=== PATIENT | female | born 1965 | race Caucasian/White ===

== ENCOUNTER 2022-09-14 08:36 | Outpatient (RCR) | payer MEDICARE, SELFPAY | END 2022-11-21 16:40 | disposition home or self-care (01) | LOC: PT 08:36 | PROVIDERS: PCP Family Medicine; Visit Provider Family Medicine | DX: C67.9 Malignant neoplasm of bladder, unspecified (principal); Z78.9 Other specified health status; G91.9 Hydrocephalus, unspecified | CPT/HCPCS: 97110; 97112; 97530 ==

== ENCOUNTER 2023-01-24 15:01 | Outpatient (RCR) | payer MEDICARE, SELFPAY | END 2023-04-15 09:00 | disposition home or self-care (01) | LOC: PT 15:01 | PROVIDERS: PCP Family Medicine; Visit Provider Internal Medicine | DX: M25.511 Pain in right shoulder (principal); M25.512 Pain in left shoulder; M54.6 Pain in thoracic spine; R53.1 Weakness; R26.89 Other abnormalities of gait and mobility | CPT/HCPCS: 97110; 97140; 97162; 97164 ==

== ENCOUNTER 2023-04-11 18:04 | Emergency (ER) | payer MEDICARE, SELFPAY ==
[2023-04-11 18:17] VITALS: BP 176/80; PULSE 82; RESP 18; TEMP 36.8; O2SAT 100; BMI 20.7
--- NOTE | 2023-04-11 18:59 | XR_ITS ---
The [address] [address] Patient Name: CHIKIS TOBAR MRN: [id number] date: 1965 Sex: F Assigned Patient Location: ER Current Patient Location: ER Accession/Order Number: [id number] Exam Date: 04/11/2023 19:15 Report Date: 04/11/2023 20:12 At the request of: FLOYD ALLEN Procedure: XR knee LT 4V EXAM: XR knee LT 4V HISTORY: fall COMPARISON: None. TECHNIQUE: 4 views FINDINGS: IMPRESSION: Displaced intra-articular fracture of the patella. Large knee effusion and presumed lipohemarthrosis. The remainder of the osseous structures are unremarkable. Joint spaces are for patient's age. Atherosclerosis of the vascular structures. Orthopedic surgical intervention is necessary. Electronically authenticated by: ANTHONY GARVEY Date: 04/11/2023 20:12
--- NOTE | 2023-04-11 19:42 | ED.LOWEXI1 ---
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 She receives all of her neurology/neurosurgery care through the [facility]. She states that she has ongoing paresthesia from the mid thorax distally and tonight after dinner, she stood up and felt twitching and weakness in the left leg causing her to fall forward onto her left knee. She states she now has pain in the anterior left knee and difficulty ambulating. She denies any other associated injuries. No medications taken prior to arrival. Related Data Previous Rx's Medication Instructions Recorded hydrocodone 5 mg-acetaminophen 325 1 tab PO Q6H PRN pain 3 days #12 04/11/23 mg tablet tabs ondansetron 4 mg disintegrating 4 mg PO Q6H PRN nausea and 04/11/23 tablet vomiting #12 tabs Allergies Allergy/AdvReac Type Severity Reaction Status Date / Time cyclobenzaprine Allergy Intermediate Hives Verified 04/11/23 18:22 [From Flexeril] meperidine [From Demerol] Allergy Intermediate Nausea Verified 04/11/23 18:22 midazolam [From Versed] Allergy Intermediate Verified 04/11/23 18:22 orphenadrine [From Norflex] Allergy Intermediate Hives Verified 04/11/23 18:22 Review of Systems ROS Constitutional Denies: fever or chills Ears, nose, mouth, and throat Denies: throat pain or neck pain Cardiovascular Denies: chest pain Respiratory Denies: shortness of breath Gastrointestinal Denies: nausea or vomiting Musculoskeletal Denies: back pain or neck pain Integumentary/Breast Denies: rash Neurological Denies: headache Hematologic/Lymphatic Denies: easy bruising or easy bleeding Exam Narrative Exam Narrative: Gen.: Awake, alert, in no distress Head: Normocephalic, atraumatic ENT: Moist mucous membranes Respiratory: No respiratory distress Extremities: Pain with flexion and extension at the left knee, diffusely mildly edematous with faint ecchymosis on the anterior patella. No bony tenderness of the left ankle or foot. Psych: Normal mood and affect Neuro: No focal neuro deficit Skin: Warm, dry, intact Constitutional Vital Signs, click to edit/add: Last Vital Signs Temp 98.3 F 04/11/23 18:17 Pulse 82 04/11/23 18:17 Resp 18 04/11/23 18:17 BP 176/80 H 04/11/23 18:17 Pulse Ox 100 04/11/23 18:17 Course Vital Signs Vital signs: Vital Signs Temperature 98.3 F 04/11/23 18:17 Pulse Rate 82 04/11/23 18:17 Respiratory Rate 18 04/11/23 18:17 Blood Pressure 176/80 H 04/11/23 18:17 Pulse Oximetry 100 04/11/23 18:17 Temperature 98.3 F 04/11/23 18:17 Pulse Rate 82 04/11/23 18:17 Respiratory Rate 18 04/11/23 18:17 Blood Pressure 176/80 H 04/11/23 18:17 Pulse Oximetry 100 04/11/23 18:17 MDM - Extremity Injury (Lower) MDM Narrative Medical decision making narrative: Patient found to have a left patella fracture with mild distraction of fragments. She declined any narcotic pain medication in the ER, she states it makes her nauseous. She was treated with Motrin and Tylenol. I discussed the case with Dr. Andrew Mares for orthopedics at [facility] at the patient's request as she receives all of her other care through the [facility]. He recommended outpatient follow-up with a long knee immobilizer and weightbearing as tolerated. Patient is agreeable to this, she prefers to be discharged and follow-up as an outpatient. It was recommended that she follow-up with the main campus due to her complex medical history, she will contact her neurology specialist/infectious disease specialist for recommendations for orthopedics. She was given a prescription of [place] with Zofran for home as needed. She was instructed to elevate the knee with and apply ice, Madan wrap and knee immobilizer given in the ER and the patient remains neurovascularly intact. Crutches given for comfort. Medical Records Attestation: I reviewed the patient's medical records. Discharge Plan Discharge Chief Complaint: Extremity Injury, Lower Clinical Impression: Closed fracture of left patella Patient Disposition: Home, Self-Care Time of Disposition Decision: 20:28 Condition: Good Prescriptions / Home Meds: New hydrocodone-acetaminophen 5-325 mg tablet 1 tab PO Q6H PRN (Reason: pain) 3 Days Qty: 12 0RF Rx Instructions: DX: M25.562 ondansetron 4 mg tablet,disintegrating 4 mg PO Q6H PRN (Reason: nausea and vomiting) Qty: 12 0RF Instructions: Patellar Fracture (ED), Knee Immobilizer (ED) Additional Instructions: Please call [phone] for the [facility] appointment line, please request orthopedics at the main campus or the orthopedic doctor recommended by your specialists Stand Alone Forms: Portal Instructions Referrals: Oliva Simons MD [Primary Care Provider] - 1 week Discharge Date/Time: 04/11/23 21:13
[2023-04-11] MEDS: ACETAMINOPHEN 325 MG TABLET 650 MG PO (20:13)
[2023-04-11] MEDS: IBUPROFEN 600 MG TABLET PO (20:13)
== END 2023-04-11 21:13 | disposition home or self-care (01) ==
PROVIDERS: Emergency Provider Emergency Medicine; PCP Family Medicine
DX: S82.002A Unspecified fracture of left patella, initial encounter for closed fracture (principal); Z85.51 Personal history of malignant neoplasm of bladder; W18.39XA Other fall on same level, initial encounter; Z86.61 Personal history of infections of the central nervous system
CPT/HCPCS: 73564; 99283

== ENCOUNTER 2023-04-16 09:48 | Outpatient (RCR) | payer MEDICARE, SELFPAY | END 2023-10-06 14:00 | disposition home or self-care (01) | LOC: PT 09:48 | PROVIDERS: PCP Family Medicine; Visit Provider Internal Medicine | DX: M25.511 Pain in right shoulder (principal); M25.512 Pain in left shoulder; R26.89 Other abnormalities of gait and mobility; M25.559 Pain in unspecified hip; R53.1 Weakness; M75.02 Adhesive capsulitis of left shoulder; M75.01 Adhesive capsulitis of right shoulder | CPT/HCPCS: 97110; 97112; 97140; 97164; 97530 ==

== ENCOUNTER 2023-06-24 21:16 | Emergency (ER) | payer MEDICARE, SELFPAY ==
[2023-06-24] VITALS (17 sets, daily range): BP systolic 181–201; BP diastolic 68–85; PULSE 101–120; RESP 20–24; TEMP 38.1; O2SAT 92–99; BMI 22.1
--- OUTSIDE RECORDS SUMMARY | 2023-06-24 21:29 | XMS_ITS | CCD ---
Author Name Unknown Address [address] [place] [address] Organization [facility] Care Team Providers Care Advertising Campaign Manager Name Role Phone Omestella, Jose Unavailable Unavailable Unavailable Unavailable Unavailable Unavailable Unavailable Unavailable Kalli White Primary Care Provider KALLI WHITE Primary Care Unavailable KALLI WHITE Referring Unavailable NANCY VILLASENOR Referring Unavailable KALLI WHITE Primary Care Unavailable KALLI WHITE Primary Care Unavailable KALLI WHITE Referring Unavailable Omestella, Jose Unavailable Unavailable Unavailable Unavailable Zarina Mejia Primary Care Provider [phone] Kalli White MD Primary Care Provider [phone] Kalli White MD Primary Care Provider Kalli White MD Primary Care Provider [phone] DO Juliette Berumen Primary Care Provider [phone] MD Raul Gong Emergency Provider MD Jayashree Watts Admit Provider [phone] MD Jayashree Watts Attending Provider [phone] Kalli White MD Primary Care Provider SUNSHINE, PETERSON Referring Unavailable KALLI WHITE Primary Care Unavailable SATYAI, PETERSON Referring Unavailable KALLI WHITE Primary Care Unavailable KALLI WHITE Primary Care Unavailable ALMASSI, PETERSON Referring Unavailable Juliette Berumen Unavailable KALLI WHITE Primary Care Unavailable CONCEPCIÓN LACY Admitting Unavailable CONCEPCIÓN LACY Attending Unavailable LEÓN SMITH Consulting Unavailable ABBLENA, SINAN Ventura Consulting Unavailable CHARLY, RYAN Consulting Unavailable DAVID GARNER Consulting Unavailable BLAZE ALEMAN Consulting Unavailable JOEL, SAWYER Ventura Consulting Sonu LYNNE, SAWYER GOODMAN Consulting Unavailab mi MONTESINOS ., DR CLARE Lou Consulting Unavailable NADERER, DR ALYCE Ventura Admitting Unavailable NADERER, DR ALYCE Ventura Attending Unavailable JAMAICA, DR NAVARRO Primary Care Unavailable NADERER, DR ALYCE Ventura Consulting Unavailable SALINASCHRON ., JONNIE BARRIENTOS Consulting Unavailmika HIGGINS ., DR JARAMILLO Consulting Unavailable BERNOTANA ROSA Consulting Unavailable KLIPPER, ANTHONY Consulting Unavailable SISTER, BETHANY Consulting Unavailable JAMAICA, DR NAVARRO Admitting Unavailable BALL, DR NAVARRO Attending Unavailable BALL, DR NAVARRO Primary Care Unavailable BALL, DR NAVARRO Admitting Unavailable BALL, DR NAVARRO Attending Unavailable BALL, DR NAVARRO Primary Care Unavailable MISC, DR JORDAN Admitting Unavailable MISC, DR JORDAN Attending Unavailable BALL, DR NAVARRO Primary Care Unavailable BALL, DR NAVARRO Primary Care Unavailable MARIANELA AVILEZ Admitting Unavailable RAGHAV, MARIANELA Attending Unavailable RAGHAV, MARIANELA Consulting Unavailable TIFFANIEREEMANUEL ANDREW Consulting Unavailable AKOSUA AHN Consulting Unavailable RAGHAV, MARIANELA Admitting Unavailable WHITE, DR KALLI Lou Primary Care Unavailable RAGHAV, MARIANELA Attending Unavailable MARIANELA AVILEZ Consulting Unavailable ESTEE TORRES Consulting Unavailable MELIDA, DR ALY Mackay Admitting Unavailable MELIDA, DR ALY Mackay Attending Unavailable MELIDA, DR ALY Mackay Consulting Unavailable JAMAICA, DR NAVARRO Primary Care Unavailable KATIE CAMILO Consulting Unavailable MAMADOU VERA Consulting Unavailable JAMAICA, DR NAVARRO Primary Care Unavailable DIAB ., AARTI Admitting Unavailable DIAB ., AARTI Attending Unavailable KLYMKATIE Consulting Unavailable GAURI SALGUERO Consulting Unavailable ITKINDELROY Consulting Unavailable DIAB ., AARTI Consulting Unavailable NADIRVIN, DR ALYCE Ventura Admitting Unavailable MELIDA, DR ALY Mackay Consulting Unavailable NADIRVIN, DR ALYCE Ventura Attending Unavailable JAMAICA, DR NAVARRO Primary Care Unavailable NADEREThompson, DR ALYCE Ventura Consulting Unavailable GRACE HICKMAN Consulting Unavailable WILKS, KIN Consulting Unavailable BENITA ., DR ASTORGA Admitting Unavailable HOGenesis ., DR ASTORGA Attending Unavailable HOGenesis ., DR ASTORGA Consulting Unavailable BALL, DR NAVARRO Primary Care Unavailable ZIEBER, DR BRANDON Mackay Consulting Unavailable BEATRICE ., JOVON Consulting Unavailable LACEY, DANIEL C. Consulting Unavailable FALVO, MADELEINE Consulting Unavailable Cathie, Jodie Consulting Unavailable WILKS, RADHA Consulting Unavailable [place] DO Navarro Primary Care Provider STEVEN Headley Attending Provider Kalli White Unavailable DO Juliette Berumen Attending Provider CopMarjorie morley Attending Unavailable Juliette Berumen Primary Care Unavailable Marjorie Headley Admitting Unavailable Semaskiene, Jayashree Admitting Unavailable Juliette Berumen Primary Care Unavailable Chaye, Jayashree Attending Unavailable Rock Rich Attending Unavailable Vanita Alfred Consulting Unavailable Juliette Berumen Primary Care Unavailable Cyndi Beltran Admitting Unavailable Molly Gallegos Consulting Unavailable Brandon Vasquez Consulting Unavailable Khoi Driver Consulting Unavailab Marce Day Consulting Unavailable Reed Elena Consulting Unavailable Camelia Schulte Consulting Unavailable Lisa Ramsey Consulting Unavailable Armin Smith Consulting Unavaila Cathy Gatica Consulting Unavailable Emili Almendarez Consulting UnavailPablo Dillard Consulting Unavailable Camilo White Consulting Unavailable Zarina Stoll Consulting Unavailable Anthony Iyer Consulting Unavailable Katie Abbasi Consulting Unavailable Raul Hernandez Consulting Unavailable Ankit Madera Consulting Unavailable Alvin Allison Consulting Unavailable Jason Cummings Consulting Unavailable Anthony Mendoza Consulting Unavailable Eben Fong Consulting Unavailable Aly Hubbard Consulting Unavailable Cassidy Cam Consulting Unavailable Alyssa Chu Consulting Unavailable Tang Jha Consulting Unavailable Myrna Arrieta Consulting Unavailable Monico Rubi Consulting Unavailable Silvino Jonas Consulting Unavailable Gurdeep Rajan Consulting Unavailable Jenny Conley Consulting Unavailable Sara Myers Consulting Unavailable Manda Unger Consulting Unavailable Khoi Peck Consulting Unavailable Trent Bravo Consulting Unavailable Karsten Boucher Consulting Unavailable Slava Pedro Consulting Unavailable Andrew Garcia Consulting Unavailable Monika Kim Consulting Unavailab Estee Wells Consulting Unavailable Kelly Contreras Consulting Unavailable Anesthesiologist, Ananda Consulting Unav ailable JamaicaJuliette Primary Care Unavailable JamaicaJuliette Admitting Unavailable JamaicaJuliette Attending Unavailable Deandra Roth Primary Care Unavailable Deandra Roth Primary Care Unavailable OMOREGIE, PAC JOSE STACK Attending Un available Shelbi Lopez Unavailable WHITE, KALLI E Primary Care Unavailable SCHWKARIS, MARLENE Attending Unavailable RAUL ROSEN Referring Unavailable WHITE, KALLI E Primary Care Unavailable FLOYD MENDOZA Referring Unavailable ISJAMIE AGOSTO Attending Unavailable WHITE, KALLI E Primary Care Unavailable ISJAMIE AGOSTO Attending Unavailable WHITE, KALLI E Primary Care Unavailable MYRNA SOLIMAN Referring Unavailable WHITE, KALLI E Primary Care Unavailable SEYBERT, AASHISH Referring Unavailable WHITE, KALLI E Primary Care Unavailable SCHWKARIS, MARLENE Attending Unavailable RAUL ROSEN Referring Unavailable WHITE, KALLI E Primary Care Unavailable SCHWIETERMAN, MARLENE Referring Unavailable WHITE, KALLI E Primary Care Unavailable ISJAMIE AGOSTO Referring Unavailable WHITE, KALLI E Primary Care Unavailable ISJAMIE AGOSTO Referring Unavailable WHITE, KALLI E Primary Care Unavailable ALMASSI, PETERSON Referring Unavailable WHITE, KALLI E Primary Care Unavailable ISJAMIE AGOSTO Attending Unavailable WHITE, KALLI E Primary Care Unavailable RAMAMBAR LI A Referring Unavailable WHITE, KALLI E Primary Care Unavailable ALMASSI, PETERSON Referring Unavailable ALMASSI, PETERSON Attending Unavailable WHITE, KALLI E Primary Care Unavailable WHITE, KALLI E Primary Care Unavailable SCHWIETERMAN, MARLENE Attending Unavailable WHITE, KALLI E Primary Care Unavailable ISJAMIE AGOSTO Attending Unavailable FLOYD MENDOZA Referring Unavailable WHITE, KALLI E Primary Care Unavailable ISJAMIE AGOSTO Attending Unavailable ISJAMIE AGOSTO Referring Unavailable WHITE, KALLI E Primary Care Unavailable WHITE, KALLI E Primary Care Unavailable WHITE, KALLI E Primary Care Unavailable WHITE, KALLI E Primary Care Unavailable WHITE, KALLI E Primary Care Unavailable SCHWIETERMAN, MARLENE Referring Unavailable SCHWIETERMAN, MARLENE Attending Unavailable WHITE, KALLI E Primary Care Unavailable SEYBERT, AASHISH Referring Unavailable WHITE, KALLI E Primary Care Unavailable WHITE, KALLI E Primary Care Unavailable WHITE, KALLI E Referring Unavailable ALMASSI, PETERSON A Attending Unavailable SEKATHLEENERTAASHISH Attending Unavailable WHITE, KALLI E Primary Care Unavailable SEYBERT, AASHISH Attending Unavailable WHITE, KALLI E Primary Care Unavailable SEYBERT, AASHISH Referring Unavailable WHITE, KALLI E Primary Care Unavailable WHITE, KALLI E Primary Care Unavailable AASHISH MONGE Unavailable Unavailable Unavailable Unavailable Allergies Allergy Classification Reported Allergen(s) Allergy Type Date of Onset Reaction(s) Facility cyclobenzaprine (1 source) cyclobenzaprine; 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: [Flexeril] Drug Allergy Rash [facility] Work Phone: Opioid Agonists (1 source) Meperidine; 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: [Demerol SOLN] Drug Allergy Nausea, Dizziness [facility] Work Phone: Orphenadrine (1 source) Orphenadrine; 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: [Norflex] Drug Allergy Rash [facility] Work Phone: (20 sources) cyclobenzaprine; 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: [Flexeril] Drug Allergy 6 hives [facility] (20 sources) Meperidine; 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: [Demerol SOLN] Drug Allergy 1 GI Upset, rash [facility] (20 sources) Orphenadrine; 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: [Norflex] Drug Allergy [facility] Work Phone: (20 sources) cyclobenzaprine; 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: [CYCLOBENZAPRINE] Drug Allergy 1 [facility] (20 sources) Midazolam; 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: [MIDAZOLAM] Drug Allergy 1 Mental Status Change [facility] (7 sources) Meperidine; 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: [MEPERIDINE] Drug Allergy 1 Dizziness [facility] (1 source) Meperidine Drug Allergy 6 [facility] (1 source) Midazolam Drug Allergy [facility] (1 source) Orphenadrine Drug Allergy 6 [facility] (1 source) cyclobenzaprine Drug Allergy 3 [facility] (1 source) Midazolam Drug Allergy 3 [facility] Medications Current Medications Medication Drug Class(es) Dates Sig (Normalized) Sig (Original) amoxicillin 875 mg / clavulanate 125 mg oral tablet (6 sources) Penicillin-class Antibacterial Start: 03-02-2023 take 1 tablet by mouth every twelve hours Amoxicillin-Pot Clavulanate 875-125 MG 1 tablet Orally every 12 hrs for 10 days Feb, Active Start: 10-31-2021 End: 11-14-2021 take 1 tablet by mouth twice daily amoxicillin-clavulanic acid (AUGMENTIN) 875-125 mg per tablet Take 1 tablet by mouth twice daily for 14 days. 28 tablet 0 10/31/2021 11/14/2021 Active Comment on above: Take 1 tablet by tierra twice daily for 14 days. bacitracin 0.5 unt/mg topical ointment (7 sources) Start: 08-08-2022 Bacitracin Active 1 APPLIC TOPICAL Daily August 08, 2022 12:00am Start: 07-20-2022 End: 09-18-2022 bacitracin 500 unit/gram oin tment Apply to affected area twice daily. 28 g 0 07/20/2022 09/18/2022 Active Bacitracin 500 U NIT/GM 1 application into the lower eyelid of affected eye Ophthalmic Once a day Active Comment on above: Apply to affected ar ea twice daily. Bacitracin 500 UNIT/GM (9 sources) Bacitracin 500 U NIT/GM 1 application into the lower eyelid of affected eye Ophthalmic Once a day Active cholecalciferol 0.05 mg oral capsule (2 sources) Vitamin D Start: 08-08-2022 take 1 capsule by mouth once daily Cholecalciferol (Vitamin D3) (Vitamin D3) 50 mcg (2,000 unit) Capsule Active 50 MCG PO Daily August 08, 2022 12:00am enteric contrast (will be provided with radiology test) (4 sources) Start: 11-30-2021 End: 12-01-2021 enteric contrast (will be provided with radiology test) Indications: Pelvic and perineal pain For CT PELVIS W IVCON order Administer, As Directed One Time Only, via Oral, Rectal, both Oral and Rectal, Enteric Tube, Stoma or Indwelling Catheter, Enteric Contrast as designated per enteric contrast guidelines 1 Each 0 11/30/2021 12/01/2021 Active Start: 11-30-2021 End: 12-01-2021 enteric contrast (will be pr ovided with radiology test) For CT PELVIS W IVCON order Administer, As Directed One Time Only, via Oral, Rectal, both Oral and Rectal, Enteric Tube, Stoma or Indwelling Catheter, Enteric Contrast as designated per enteric contrast guidelines 1 Each 0 11/30/2021 12/01/2021 Active Start: 10-11-2021 End: 10-12-2021 enteric contrast (will be pr ovided with radiology test) For CT ABD/PEL W IVCON Routine order Administer, As Directed One Time Only, via Oral, Rectal, both Oral and Rectal, Enteric Tube, Stoma or Indwelling Catheter, Enteric Contrast as designated per enteric contrast guidelines 1 Each 0 10/11/2021 10/12/2021 Active Comment on above: For CT ABD/PEL W IVC ON Routine order Administer, As Directed One Time Only, via Oral, Rectal, both Oral and Rectal, Enteric Tube, Stoma or Indwelling Catheter, Enteric Contrast as designated per enteric contrast guidelines For CT PELVIS W IVCO N order Administer, As Directed One Time Only, via Oral, Rectal, both Oral and Rectal, Enteric Tube, Stoma or Indwelling Catheter, Enteric Contrast as designated per enteric contrast guidelines ferrous sulfate 325 mg oral tablet (20 sources) Start: 08-08-2022 take 1 tablet by mouth once daily Ferrous Sulfate (Iron) 325 mg (65 mg iron) Tablet Active 325 MG PO Daily August 08, 2022 12:00am Start: 06-16-2022 take 1 tablet by tierra th every other day ferrous sulfate 325 mg (65 mg iron) tablet Take 1 tablet by mouth every other day. 0 06/16/2022 Active take 1 tablet by tierra th every other day Ferrous Sulfate 325 (65 Fe) MG 1 tablet Orally every other day Active take 1 tablet by tierra th every other day Ferrous Sulfate 325 (65 Fe) MG 1 tablet Orally every other day Active Comment on above: Take 1 tablet by tierra th every other day. Glucagon 3 MG/DOSE (16 sources) Glucagon 3 MG/DO SE as directed Nasally Active Insulin Aspart U-100 (Novolog U-100 Insulin Aspart) 100 unit/mL solution (3 sources) Start: 04-30-2021 Insulin Aspart U-100 (Novolog U-100 Insulin Aspart) 100 unit/mL solution Active 0 .ROUTE .COMPLEX April 30, 2021 1:00am patient has insulin pump 3 ml insulin glargine 100 unt/ml pen injector (20 sources) Insulin Analog Start: 08-08-2022 Insulin Glargi ne (Lantus Solostar U-100 Insulin) 100 unit/mL (3 mL) insulin pen Active 18 UNIT SUBCUT Bedtime August 08, 2022 12:00am Start: 07-20-2022 End: 01-15-2023 inject 18 [IU] by subcutaneous injection once daily at bedtime insulin glargine 100 unit/mL (3 mL) Inject 18 Units subcutaneously daily at bedtime. 6 mL 0 07/20/2022 01/15/2023 Discontinued Start: 06-15-2022 End: 07-20-2022 insulin glargine (LANTUS ISAAK OSTAR, BASAGLAR KWIKPEN) 100 unit/mL (3 mL) Inject 17 Units subcutaneously every morning. 15 mL 0 06/15/2022 07/20/2022 Discontinued Start: 01-14-2022 End: 02-13-2022 inject 25 [IU] by subcutaneous injection once daily in the morning insulin glargine (LANTUS) 100 unit/mL injection Inject 25 Units subcutaneously every morning. 10 mL 0 01/14/2022 Active Start: 02-18-2019 inject 15 [IU] by ziegler bcutaneous injection every twelve hours, then inject 100 [IU] by subcutaneous injection Lantus SoloStar 100 UNIT/ML Subcutaneous Solution Pen-injector INJECT, subcutaneously, 15 UNITS every 12 hours Quantity: 3 Refills: 5 Omestella PA-C Jose Start : 18-Feb-2019 Active 3 ML Pen Start: 02-18-2019 inject 14 [IU] by ziegler bcutaneous injection every twelve hours, then inject 100 [IU] by subcutaneous injection Basaglar KwikPen 100 UNIT/ML Subcutaneous Solution Pen-injector please inject 14 units every 12 hours Quantity: 3 Refills: 5 Omestella PA-C Jose Start : 18-Feb-2019 Active 3 ML Pen Comment on above: Inject 25 Units subc utaneously every morning. Inject 17 Units subc utaneously every morning. Inject 18 Units subc utaneously daily at bedtime. iv contrast (will be provided with radiology test) (15 sources) Start: 01-09-2023 End: 01-10-2023 iv contrast (will be provided with radiology test) Indications: History of bladder cancer CT Urogram WO/W Inject, intravenously, once for 1 dose.No IV access, insert saline lock prior to the beginning of sedation, infusion, injection of imaging exam. Discontinue saline lock post exam. If Pt. has a central line or IVAD, may access for administration according to line specific nursing protocol. Once exam is complete flush line and de-access according to line specific nursing protocol in the CT contrast administration guidelines link. 1 Each 0 01/09/2023 01/10/2023 Active Start: 01-09-2023 End: 01-10-2023 iv contrast (will be provide d with radiology test) Indications: History of bladder cancer CT Chest W -Inject, intravenously, once for 1 dose.No IV access, insert saline lock prior to the beginning of sedation, infusion, injection of imaging exam. Discontinue saline lock post exam. If Pt. has a central line or IVAD, may access for administration according to line specific nursing protocol. Once exam is complete flush line and de-access according to line specific nursing protocol in the CT contrast administration guidelines link. 1 Each 0 01/09/2023 01/10/2023 Active Start: 07-19-2022 End: 07-20-2022 inject 1 dose intravenously once iv contrast (will be provided with radiology test) MRI Brain Inject, intravenously, once for 1 dose.No IV access, insert saline lock prior to beginning of sedation, infusion, injection of imaging exam.Discontinue saline lock post exam. If Pt. has a central line or IVAD, may access for administration according to line specific nursing protocol.Once exam is complete flush line and de-access according to line specific nursing protocol in the MR contrast administration guidelines link 1 Each 0 07/19/2022 07/20/2022 Active Start: 07-19-2022 End: 07-20-2022 iv contrast (will be provide d with radiology test) MRI CSP Inject, intravenously, once for 1 dose. No IV access, insert saline lock prior to the beginning of sedation, infusion, injection of imaging exam. Discontinue saline lock post exam. If Pt. has a central line or IVAD, may access for administration according to line specific nursing protocol. Once exam is complete flush line and de-access according to line specific nursing protocol in the MR contrast administration guidelines link. 1 Each 0 07/19/2022 07/20/2022 Active Start: 07-19-2022 End: 07-20-2022 iv contrast (will be provide d with radiology test) MRI LSP Inject, intravenously, once for 1 dose. No IV access, insert saline lock prior to the beginning of sedation, infusion, injection of imaging exam. Discontinue saline lock post exam. If Pt. has a central line or IVAD, may access for administration according to line specific nursing protocol. Once exam is complete flush line and de-access according to line specific nursing protocol in the MR contrast administration guidelines link. 1 Each 0 07/19/2022 07/20/2022 Active Start: 07-19-2022 End: 07-20-2022 inject 1 dose intravenously once iv contrast (will be provided with radiology test) MRI TSP Inject, intravenously, once for 1 dose. No IV access, insert saline lock prior to the beginning of sedation, infusion, injection of imaging exam. Discontinue saline lock post exam. If Pt. has a central line or IVAD, may access for administration according to line specific nursing protocol. Once exam is complete flush line and de-access according to line specific nursing protocol in the MR contrast administration guidelines link. 1 Each 0 07/19/2022 07/20/2022 Active Start: 05-02-2022 End: 05-03-2022 iv contrast (will be provide d with radiology test) Indications: History of bladder cancer CT Urogram WO/W Inject, intravenously, once for 1 dose.No IV access, insert saline lock prior to the beginning of sedation, infusion, injection of imaging exam. Discontinue saline lock post exam. If Pt. has a central line or IVAD, may access for administration according to line specific nursing protocol. Once exam is complete flush line and de-access according to line specific nursing protocol in the CT contrast administration guidelines link. 1 Each 0 05/02/2022 05/03/2022 Active Start: 05-02-2022 End: 05-03-2022 iv contrast (will be provide d with radiology test) Indications: History of bladder cancer CT Chest W -Inject, intravenously, once for 1 dose.No IV access, insert saline lock prior to the beginning of sedation, infusion, injection of imaging exam. Discontinue saline lock post exam. If Pt. has a central line or IVAD, may access for administration according to line specific nursing protocol. Once exam is complete flush line and de-access according to line specific nursing protocol in the CT contrast administration guidelines link. 1 Each 0 05/02/2022 05/03/2022 Active Start: 01-31-2022 End: 02-01-2022 iv contrast (will be provide d with radiology test) Indications: Malignant neoplasm of urinary bladder, unspecified site (HCC) CT Urogram WO/W Inject, intravenously, once for 1 dose.No IV access, insert saline lock prior to the beginning of sedation, infusion, injection of imaging exam. Discontinue saline lock post exam. If Pt. has a central line or IVAD, may access for administration according to line specific nursing protocol. Once exam is complete flush line and de-access according to line specific nursing protocol in the CT contrast administration guidelines link. 1 Each 0 01/31/2022 02/01/2022 Active Start: 11-30-2021 End: 12-01-2021 iv contrast (will be provide d with radiology test) Indications: Pelvic and perineal pain CT PELVIS W -Inject, intravenously, once for 1 dose.No IV access, insert saline lock prior to the beginning of sedation, infusion, injection of imaging exam. Discontinue saline lock post exam. If Pt. has a central line or IVAD, may access for administration according to line specific nursing protocol. Once exam is complete flush line and de-access according to line specific nursing protocol in the CT contrast administration guidelines link. 1 Each 0 11/30/2021 12/01/2021 Active Start: 11-30-2021 End: 12-01-2021 iv contrast (will be provide d with radiology test) CT PELVIS W -Inject, intravenously, once for 1 dose.No IV access, insert saline lock prior to the beginning of sedation, infusion, injection of imaging exam. Discontinue saline lock post exam. If Pt. has a central line or IVAD, may access for administration according to line specific nursing protocol. Once exam is complete flush line and de-access according to line specific nursing protocol in the CT contrast administration guidelines link. 1 Each 0 11/30/2021 12/01/2021 Active Start: 11-30-2021 End: 12-01-2021 iv contrast (will be provide d with radiology test) Indications: Malignant neoplasm of urinary bladder, unspecified site (HCC) CT Urogram WO/W Inject, intravenously, once for 1 dose.No IV access, insert saline lock prior to the beginning of sedation, infusion, injection of imaging exam. Discontinue saline lock post exam. If Pt. has a central line or IVAD, may access for administration according to line specific nursing protocol. Once exam is complete flush line and de-access according to line specific nursing protocol in the CT contrast administration guidelines link. 1 Each 0 11/30/2021 12/01/2021 Active Start: 10-11-2021 End: 10-12-2021 iv contrast (will be provide d with radiology test) CT ABD/PEL -Inject, intravenously, once for 1 dose.No IV access, insert saline lock prior to the beginning of sedation, infusion, injection of imaging exam. Discontinue saline lock post exam. If Pt. has a central line or IVAD, may access for administration according to line specific nursing protocol. Once exam is complete flush line and de-access according to line specific nursing protocol in the CT contrast administration guidelines link. 1 Each 0 10/11/2021 10/12/2021 Active Comment on above: CT ABD/PEL -Inject, intravenously, once for 1 dose.No IV access, insert saline lock prior to the beginning of sedation, infusion, injection of imaging exam. Discontinue saline lock post exam. If Pt. has a central line or IVAD, may access for administration according to line specific nursing protocol. Once exam is complete flush line and de-access according to line specific nursing protocol in the CT contrast administration guidelines link. CT PELVIS W -Inject, intravenously, once for 1 dose.No IV access, insert saline lock prior to the beginning of sedation, infusion, injection of imaging exam. Discontinue saline lock post exam. If Pt. has a central line or IVAD, may access for administration according to line specific nursing protocol. Once exam is complete flush line and de-access according to line specific nursing protocol in the CT contrast administration guidelines link. CT Urogram WO/W Inje ct, intravenously, once for 1 dose.No IV access, insert saline lock prior to the beginning of sedation, infusion, injection of imaging exam. Discontinue saline lock post exam. If Pt. has a central line or IVAD, may access for administration according to line specific nursing protocol. Once exam is complete flush line and de-access according to line specific nursing protocol in the CT contrast administration guidelines link. CT Chest W -Inject, intravenously, once for 1 dose.No IV access, insert saline lock prior to the beginning of sedation, infusion, injection of imaging exam. Discontinue saline lock post exam. If Pt. has a central line or IVAD, may access for administration according to line specific nursing protocol. Once exam is complete flush line and de-access according to line specific nursing protocol in the CT contrast administration guidelines link. MRI Brain Inject, in travenously, once for 1 dose.No IV access, insert saline lock prior to beginning of sedation, infusion, injection of imaging exam.Discontinue saline lock post exam. If Pt. has a central line or IVAD, may access for administration according to line specific nursing protocol.Once exam is complete flush line and de-access according to line specific nursing protocol in the MR contrast administration guidelines link MRI CSP Inject, intr avenously, once for 1 dose. No IV access, insert saline lock prior to the beginning of sedation, infusion, injection of imaging exam. Discontinue saline lock post exam. If Pt. has a central line or IVAD, may access for administration according to line specific nursing protocol. Once exam is complete flush line and de-access according to line specific nursing protocol in the MR contrast administration guidelines link. MRI LSP Inject, intr avenously, once for 1 dose. No IV access, insert saline lock prior to the beginning of sedation, infusion, injection of imaging exam. Discontinue saline lock post exam. If Pt. has a central line or IVAD, may access for administration according to line specific nursing protocol. Once exam is complete flush line and de-access according to line specific nursing protocol in the MR contrast administration guidelines link. MRI TSP Inject, intr avenously, once for 1 dose. No IV access, insert saline lock prior to the beginning of sedation, infusion, injection of imaging exam. Discontinue saline lock post exam. If Pt. has a central line or IVAD, may access for administration according to line specific nursing protocol. Once exam is complete flush line and de-access according to line specific nursing protocol in the MR contrast administration guidelines link. lisinopril 20 mg oral tablet (2 sources) Angiotensin Converting Enzyme Inhibitor take 1 tablet by mouth every twenty-four hours Lisinopril 20 MG 1 tablet Orally Once a day Active LORazepam 0.5 mg oral tablet (7 sources) Benzodiazepine Start: LORazepam 0.5 MG 1 - 2 tablets Orally before MRI for 1 days Apr, Active Start: 08-17-2022 LORazepam 0.5 MG 1-2 PO Orally Once a day before MRI for 1 days August, Active meloxicam 15 mg oral tablet (1 source) Nonsteroidal Anti-inflammatory Drug Start: 04-25-2023 take 1 tablet by mouth every twenty-four hours Meloxicam 15 MG 1 tablet Orally Once a day for 30 days Apr, Active ondansetron 4 mg disintegrating oral tablet (19 sources) Serotonin-3 Receptor Antagonist Start: 05-28-2023 take 1 tablet by mouth every six hours as needed Ondansetron 4 MG 1 tablet on the tongue and allow to dissolve Orally every 6 hours as needed for 30 days May, Active Start: 01-06-2022 take 1 tablet by tierra every eight hours as needed ondansetron (ZOFRAN) 4 mg tablet Take 1 tablet by mouth every 8 hours as needed for nausea/vomiting. 20 tablet 0 01/06/2022 Active Start: 05-05-2021 End: 06-10-2021 take 8 mg by mouth every eight hours Ondansetron Hcl Discontinued 8 MG PO Q8H 15 5 May 05, 2021 1:00am June 10, 2021 2:30pm Start: 04-30-2021 End: 08-08-2022 take 8 mg by mouth every eight hours Ondansetron Discontinued 8 MG PO Every 8 hours April 30, 2021 1:00am August 08, 2022 1:29pm Comment on above: Take 1 tablet by tierra every 8 hours as needed for nausea/vomiting. polyethylene glycol 3350 12476 mg powder for oral solution (12 sources) Osmotic Laxative Start: 07-20-2022 End: 08-19-2022 polyethylene glycol 3350 17 gram packet Take 1 Packet by mouth once daily. Dissolve dose in 4 - 8 ounces of liquid and take as directed. 30 Packet 0 07/20/2022 08/19/2022 Active Polyethylene Gly col 3350 17 GM 1 packet mixed with 4-8 ounces of fluid Orally Once a day Active Comment on above: Take 1 Packet by tierra th once daily. Dissolve dose in 4 - 8 ounces of liquid and take as directed. Posaconazole (Noxafil) 300 mg Susp,Delayed Release For Recon (2 sources) Start: take 300 mg by mouth once daily Posaconazole (Noxafil) 300 mg Susp,Delayed Release For Recon Active 300 MG PO Daily August 08, 2022 12:00am Probiotic Blend (16 sources) Probiotic Blend Active Sennosides (Senokot) 8.6 mg Tablet (2 sources) Start: 08-08-2022 take 1 tablet by mouth once daily Sennosides (Senokot) 8.6 mg Tablet Active 8.6 MG PO Daily August 08, 2022 12:00am sennosides, skilled nursing 8.6 mg oral tablet (12 sources) Start: 07-20-2022 End: 08-19-2022 take 1 tablet by mouth twice daily senna (SENOKOT) 8.6 mg tab Take 1 tablet by mouth twice daily. 0 07/20/2022 08/19/2022 Active Comment on above: Take 1 tablet by tierra th twice daily. sulfacetamide sodium 100 mg/ml ophthalmic solution (6 sources) Sulfonamide Antibacterial Start: 01-18-2023 take 2 drop(s) into the eye(s) four times daily Sulfacetamide Sodium 10 % 2 drops Ophthalmic qid for 7 days Jan, Active Start: 01-18-2023 take 2 drop(s) into the eye(s) four times daily Sulfacetamide Sodium 10 % 2 drops Ophthalmic qid for 7 days Jan, Active Completed/Discontinued Medications Medication Drug Class(es) Dates Sig (Normalized) Sig (Original) Accu-Chek Nadia In Vitro Solution (2 sources) Start: 03-21-2019 Accu-Chek Nadia In Vitro Solution USE DIRECTED. Quantity: 1 Refills: 3 Omoregie PA-C, Jose Start : 21-Mar-2019 Active Accu-Chek Nadia Plus w/Device Kit (2 sources) Start: 03-21-2019 Accu-Chek Nadia Plus w/Device Kit USE DIRECTED. Quantity: 1 Refills: 0 Omoregie PA-C, Jose Start : 21-Mar-2019 Active acetaminophen 325 mg oral tablet (20 sources) Start: 03-02-2023 take 2 tablets by mouth every six hours as needed acetaminophen (TYLENOL) 325 mg tablet Take 2 tablets by mouth every 6 hours as needed for pain. 0 06/15/2022 Active Start: 12-30-2021 take 2 tablets by mo uth every six hours as needed acetaminophen (TYLENOL) 325 mg tablet Take 2 tablets by mouth every 6 hours as needed for pain. 0 12/30/2021 Active Start: 04-30-2021 End: 08-08-2022 take 1000 mg by mouth every six hours Acetaminophen Discontinued 1000 MG PO Every 6 hours April 30, 2021 1:00am August 08, 2022 1:28pm take 1 tablet by tierra th every six hours as needed for pain Acetaminophen 325 MG 1 tablet as needed Orally every 6 hrs, for pain Active Comment on above: Take 2 tablets by mo uth every 6 hours as needed for pain. acetaminophen 500 mg / HYDROcodone bitartrate 5 mg oral tablet (2 sources) Opioid Agonist Start: 04-25-19 06 VICODIN 5 MG-500 MG TAB as necessary 0 04/25/2005 Active Comment on above: as necessary acetaminophen 325 mg / oxyCODONE hydrochloride 5 mg oral tablet (3 sources) Opioid Agonist Start: 05-05-19 End: 08-09-19 23 take 1 tablet by mouth every six hours Oxycodone-Acetaminop hen Discontinued 1 TAB PO Q6H 20 May 05, 2021 August 08, 2022 1:29pm 200 actuat albuterol 0.09 mg/actuat metered dose inhaler (20 sources) beta2-Adrenergic Agonist Start: 04-25-19 06 ALBUTEROL 90 MCG/ACTUATION AEROSOL INHALER Use as directed four(4) times daily. 0 04/25/2005 Active Comment on above: Use as directed four (4) times daily. aspirin 325 mg oral tablet (20 sources) Platelet Aggregation Inhibitor, Nonsteroidal Anti-inflammatory Drug Start: 02-19-20 21 take 1 tablet by mouth every twenty-four hours aspirin 325 mg tablet Take 1 tablet by mouth q 24 HR. You may stop that Aspirin 81mg and resume the Aspirin 325mg 10 days after surgery if your urine is clear. 0 02/18/2021 Active Start: 02-18-2019 take 1 tablet by tierra th once daily Aspirin 325 MG Oral Tablet TAKE TABLET Daily Quantity: 0 Refills: 0 Ordered: 18-Feb-2019 DO Start : 18-Feb-2019 Active Start: 04-25-2005 ASPIRIN 81 MG TAB Take one (1) tablet daily . 0 04/25/2005 Active take 1 tablet by tierra th once daily Aspirin 325 mg 325 mg one tab orally daily Not-Taking take 1 tablet by tierra th once daily Aspirin 325 mg 325 mg one tab orally daily Active take 1 tablet by tierra th once daily aspirin, enteric coated (ASPIRIN, ENTERIC COATED) 81 mg EC tablet Take 81 mg by mouth once daily. 0 Active Comment on above: Take one (1) tablet daily . Take 81 mg by mouth once daily. Take 1 tablet by tierra th q 24 HR. You may stop that Aspirin 81mg and resume the Aspirin 325mg 10 days after surgery if your urine is clear. atorvastatin 10 mg oral tablet (8 sources) HMG-CoA Reductase Inhibitor Start: 9 take 1 tablet by mouth every twenty-four hours Atorvastatin Calcium 10 MG 1 tablet Orally Once a day May, Not-Taking Baqsimi Two Pack 3 MG/DOSE Nasal Powder (1 source) Start: 0 Baqsimi Two Pack 3 MG/DOSE Nasal Powder Please use as directed for emergent low hypoglycemia Quantity: 1 Refills: 3 Kimberlyn HIGHTOWER, Jose Start : 29-Apr-2019 Active calcium carbonate 500 mg chewable tablet (20 sources) Start: 3 End: 3 take 500 mg by mouth every eight hours as needed calcium carbonate (TUMS) 500 mg chew Take 1 tablet by mouth three times daily as needed. 90 tablet 0 07/20/2022 Active take 1 tablet by tierra th every twenty-four hours Tums 500 MG 1 tablet Orally Once a day Active Comment on above: Take 1 tablet by tierra th three times daily as needed. cefTRIAXone 1000 mg injection (1 source) Cephalosporin Antibacterial Start: 01-30-2022 End: 01-30-2022 cefTRIAXone 1 g intramuscular injection (ROCEPHIN) ciprofloxacin 3 mg/ml ophthalmic solution (8 sources) Quinolone Antimicrobial Start: 09-26-2022 Ciprofloxacin HCl 0.3 % 1 application into the lower eyelid of affected eye Ophthalmic tid for 5 day(s) Sep, Not-Taking/PRN Start: 09-26-2022 Ciprofloxacin HCl 0.3 % 1 application into the lower eyelid of affected eye Ophthalmic tid for 5 day(s) Sep, Not-Taking Start: 09-26-2022 diclofenac sodium 0.01 mg/mg topical gel (20 sources) Nonsteroidal Anti-inflammatory Drug Start: 07-20-2022 End: 01-15-2023 apply 2 g topically every six hours as needed diclofenac (VOLTAREN) 1 % topical gel Apply 2 g to affected area four times daily as needed (for knee pain - bilateral). 100 g 0 07/20/2022 01/15/2023 Discontinued Voltaren 1 % as directed Externally Active Comment on above: Apply 2 g to affecte d area four times daily as needed (for knee pain - bilateral). docusate sodium 100 mg oral capsule (3 sources) Start: 2 End: 3 take 100 mg by mouth twice daily Docusate Sodium Discontinued 100 MG PO Twice daily April 30, 2021 1:00am August 08, 2022 1:28pm enalapril maleate 20 mg oral tablet (20 sources) Angiotensin Converting Enzyme Inhibitor Start: 9 End: 3 take 1 tablet by mouth once daily Enalapril Maleate (Vasotec) 20 mg Tablet Discontinued 20 MG PO Daily April 30, 2021 1:00am August 08, 2022 1:28pm Start: 02-18-2019 take 1 tablet by tierra th every twenty-four hours enalapril (VASOTEC) 20 mg tablet Take 20 mg by mouth q 24 HR. 0 02/18/2019 Suspended Start: 04-25-2005 VASOTEC 10 MG TAB Take one(1) tablet daily. 0 04/25/2005 Active Comment on above: Take one(1) tablet d aily. Take 20 mg by mouth q 24 HR. ergocalciferol 1.25 mg oral capsule (15 sources) Provitamin D2 Compound Start: 07-24-19 20 take 1 capsule by mouth every week Vitamin D (Ergocalciferol) 1.25 MG (99855 UT) Oral Capsule TAKE ONE CAPSULE BY MOUTH ONE TIME PER WEEK Quantity: 12 Refills: 1 Ordered: 04-Aug-2020 Jose Villasenor PA-C Start : 04-Aug-2020 Active escitalopram 10 mg oral tablet (2 sources) Serotonin Reuptake Inhibitor Start: 04-25-19 06 LEXAPRO 10 MG TAB Take one(1) tablet daily. 0 04/25/2005 Active Comment on above: Take one(1) tablet d aily. fexofenadine hydrochloride 180 mg oral tablet (20 sources) Histamine-1 Receptor Antagonist Start: 04-25-19 06 fexofenadine (ALESSIO) 180 mg tablet Take by mouth. PRN 0 06/15/2022 Active Comment on above: Take one(1) tablet d aily. Take by mouth. PRN fluticasone / salmeterol (8 sources) Corticosteroid, beta2-Adrenergic Agonist Advair Diskus 250/50 250/50 1 puff Inhalation as directed Not-Taking Advair Diskus 25 0/50 250/50 1 puff Inhalation as directed Active glucagon 3 mg nasal powder (20 sources) Antihypoglycemic Agent Start: 06-15-2022 glucago n (BAQSIMI) 3 mg/actuation nasal spray Use 1 [place] in the nose as needed. 0 06/15/2022 Active Start: 04-29-2019 glucagon (BAQS IMI) 3 mg/actuation nasal spray Use in the nose as needed. 0 04/29/2019 Active Start: 04-29-2019 Baqsimi Two Pa ck 3 MG/DOSE Nasal Powder Please use as directed for emergent low hypoglycemia Quantity: 1 Refills: 3 Ordered: 21-Jun-2021 Jose Villasenor PA-C Start : 29-Apr-2019 Active Comment on above: Use in the nose as n eeded. Use 1 [place] in the n ose as needed. ibuprofen 600 mg oral tablet (13 sources) Nonsteroidal Anti-inflammatory Drug Start: 2 End: 3 take 800 mg by mouth every six hours Ibuprofen Discontinued 800 MG PO Every 6 hours April 30, 2021 1:00am August 08, 2022 1:28pm Start: 04-25-2005 MOTRIN 800 MG TAB as necessary 0 04/25/2005 Active take 1 tablet by tierra th three times daily as needed Motrin 800 MG 1 tablet prn Orally Three times a day Not-Taking Comment on above: as necessary insulin detemir 100 unt/ml injectable solution (8 sources) Insulin Analog Start: 05-25-2022 Levemir 100 UNIT/ML as directed Subcutaneous May, Not-Taking insulin lispro 100 unt/ml injectable solution (20 sources) Insulin Analog Start: 07-20-2022 insulin lispro (HUMALOG U-100 INSULIN) 100 unit/mL injection Inject 0-5 units subcutaneously at bedtime. 111-150 Give 0 units 151-200 Give 1 unit 201-250 Give 2 units 251-300 Give 3 units 301-350 Give 4 units 351-400 Give 5 units >400 give 5units and notify provider. 3 mL 0 07/20/2022 Active Start: 07-20-2022 End: 03-19-2023 insulin lispro (HUMALOG U-10 0 INSULIN) 100 unit/mL injection Inject 0-8 units subcutaneously 3 times daily before meals. Patient to carb count 1 unit per 9 g of carbs 10 mL 1 07/20/2022 03/19/2023 Discontinued Humalog U100 8 u nits SC before meals, tid for 30 days Not-Taking/PRN Humalog U100 0-1 0 units sc 3 times daily before meals Not-Taking/PRN Humalog U100 0-5 units sc at bedtime Not-Taking/PRN Humalog U100 0-1 0 units sc 3 times daily before meals Not-Taking Humalog U100 8 u nits SC before meals, tid for 30 days Not-Taking Humalog U100 0-5 units sc at bedtime Not-Taking Humalog U100 8 u nits SC before meals, tid for 30 days Active Humalog U100 0-8 units sc 3 times before meals Active Humalog U100 0-1 0 units sc 3 times daily before meals Active Humalog U100 0-5 units sc at bedtime Active Comment on above: Inject 0-8 units sub cutaneously 3 times daily before meals. Patient to carb count 1 unit per 9 g of carbs Inject 0-10 units ziegler bcutaneously 3 times daily before meals. Supplemental Sliding Scale: Humalog Program #2 AC If Blood Glucose (mg/dL) is <110 Give 0 units 111-150 Give 0 units 151-200 Give 2 unit 201-250 Give 4 units 251-300 Give 6 units 301-350 Give 8 units 351-400 Give 10 units >400 give 10units and notify provider. Inject 0-5 units sub cutaneously at bedtime. <110 Give 0 units 111-150 Give 0 units 151-200 Give 1 unit 201-250 Give 2 units 251-300 Give 3 units 301-350 Give 4 units 351-400 Give 5 units >400 give 5units and notify provider. insulin aspart, human 100 unt/ml injectable solution (20 sources) Insulin Analog Start: 022 inject 8 [IU] by subcutaneous injection every four hours at mealtime insulin aspart U-100 (NOVOLOG) 100 unit/mL Inject 8 Units subcutaneously every 4 hours. Inject every 4 hours. Hold for BG ADMINISTER CORRECTIONAL INSULIN REGARDLESS OF MEAL OR NUTRITION INTAKE Custom Scale If Blood Glucose (mg/dL) is Less than 70 Initiate Hypoglycemia protocol 70-157 0 units 158-195 1 units 196-233 2 units 234-271 3 units 272-309 4 units 310-347 5 units 348-386 6 units Greater than 387 7 units and Notify Provider Notify provider if 2 consecutive blood glucose values in the previous 24 hours are greater than 250 mg/mL and there have been no changes to the insulin regimen in the previous 24 hours. 30 mL 1 01/14/2022 Active Start: 12-19-2021 NovoLOG 100 UN IT/ML Injection Solution USE DIRECTED IN INSULIN PUMP. MAX OF 70 UNITS/DAY Quantity: 60 Refills: 1 Ordered: 19-Dec-2021 Jose Villasenor PA-C Start : 19-Dec-2021 Active Start: 12-06-2020 NOVOLOG U-100 INSULIN ASPART 100 unit/mL Start: 09-30-2020 NovoLOG 100 UN IT/ML Subcutaneous Solution USE DIRECTED IN INSULIN PUMP. USE UP TO A MAXIMUM OF 70 UNITS DAILY Quantity: 60 Refills: 3 Ordered: 01-Feb-2021 Jose Villasenor PA-C Start : 30-Sep-2020 Active Start: 04-29-2019 inject 70 [IU] by ziegler bcutaneous injection once NovoLOG 100 UNIT/ML Subcutaneous Solution USE DIRECTED PER PUMP, UP TO 70 UNITS A DAY Quantity: 6 Refills: 3 Ordered: 27-Apr-2020 Joes Villasenor PA-C Start : 29-Apr-2019 Active Start: 06-04-2018 inject 50 [IU] by ziegler bcutaneous injection once NovoLOG 100 UNIT/ML 50 units per pump Subcutaneous qday May, Not-Taking NovoLOG 100 UNIT /ML Use in insulin pump daily Subcutaneous Continuous for 30 days Active NovoLOG 100 UNIT /ML as directed Injection Active Comment on above: Inject 8 Units subcu taneously every 4 hours. Inject every 4 hours. Hold for BG <100 or if tube feeds are held ADMINISTER CORRECTIONAL INSULIN REGARDLESS OF MEAL OR NUTRITION INTAKE Custom Scale If Blood Glucose (mg/dL) is Less than 70 Initiate Hypoglycemia protocol 70-157 0 units 158-195 1 units 196-233 2 units 234-271 3 units 272-309 4 units 310-347 5 units 348-386 6 units Greater than 387 7 units and Notify Provider Notify provider if 2 consecutive blood glucose values in the previous 24 hours are greater than 250 mg/mL and there have been no changes to the insulin regimen in the previous 24 hours. ipratropium bromide 0.042 mg/actuat metered dose nasal spray (20 sources) Anticholinergic Start: 06-15-2022 End: 01-15-2023 ipratropium bromide (ATROVENT) 42 mcg (0.06 %) nasal spray Use in the nose. 0 06/15/2022 01/15/2023 Discontinued Start: 04-25-2005 IPRATROPIUM BR OMIDE 0.06 % NASAL SPRAY AEROSOL Use in the nose. 0 04/25/2005 Active take 2 spray(s) nasa l route three times daily Ipratropium Frederica 0.06 % 2 sprays in each nostril Nasally Three times a day Active take 2 spray(s) nasa l route three times daily Ipratropium Frederica 0.06 % 2 sprays in each nostril Nasally Three times a day Active Comment on above: Take one(1) tablet f our (4) times daily. Use in the nose. L.acid-L.casei-B.bi f-B.mary beth-FOS (PROBIOTIC BLEND) 2 billion cell-50 mg cap (20 sources) Start: 06-15-2022 take 1 capsule by mouth once daily L.acid-L.casei-B.b if-B.mary beth-FOS (PROBIOTIC BLEND) 2 billion cell-50 mg cap Take 1 capsule by mouth once daily. 100 capsule 0 06/15/2022 Active Start: 06-15-2022 take 1 capsule by mouth once daily L.acid-L.casei-B.bif-B.mary beth-FOS (PROBIOTI C BLEND) 2 billion cell-50 mg cap Take 1 capsule by mouth once daily. 100 capsule 0 06/15/2022 Suspended Start: 01-06-2022 take 1 capsule by mouth once daily L.acid-L.casei-B.bif-B.mary beth-FOS (PROBIOTI C BLEND) 2 billion cell-50 mg cap Take 1 capsule by mouth once daily. 100 capsule 0 01/06/2022 Active Comment on above: Take 1 capsule by [facility] once daily. lidocaine hydrochloride 20 mg/ml mucous membrane topical solution (2 sources) Antiarrhythmic, Amide Local Anesthetic Start: 6 LIDOCAINE VISCOUS 2 % MUCOSAL SOLN as necessary 0 04/25/2005 Active Comment on above: as necessary Magnesium Hydroxide (3 sources) Start: 2 End: 3 take 1 mL by mouth four times daily Magnesium Hydroxide (Milk Of Magnesia) 400 mg/5 mL suspension Discontinued 10 ML PO Four times daily 355 May 05, 2021 1:00am August 08, 2022 1:28pm Start: 05-05-2021 take 1 mL by mouth f our times daily Magnesium Hydroxide (Milk Of Magnesia) 400 mg/5 mL suspension Active 10 ML PO Four times daily 355 May 05, 2021 1:00am metFORMIN hydrochloride 500 mg oral tablet (20 sources) Biguanide Start: 02-18-2019 End: 06-10-2021 take 500 mg by mouth once daily Metformin Discontinued 500 MG PO Daily April 30, 2021 1:00am June 10, 2021 2:30pm Start: 06-04-2018 take 1 tablet by [facility] every twenty-four hours metFORMIN HCl ER 500 MG 1 tablet with evening meal Orally Once a day May, Not-Taking Comment on above: Take 500 mg by mouth once daily. metoclopramide 10 mg oral tablet (3 sources) Dopamine-2 Receptor Antagonist Start: 05-05-19 End: 08-09-19 take 1 tablet by mouth every six hours Metoclopramide Hcl (Reglan) 10 mg tablet Discontinued 10 MG PO Q6H 20 May 05, 2021 1:00am August 08, 2022 1:28pm 24 hr metoprolol succinate 100 mg extended release oral tablet (20 sources) beta-Adrenergic Dianna Start: 10-22-19 take 1 tablet by mouth every twelve hours metoprolol succinate ER (TOPROL XL) 100 mg Take 1 tablet by mouth every 12 hours 6am/6pm. 0 10/21/2022 Active Start: 07-20-2022 End: 01-15-2023 take 1 tablet by mouth every twelve hours metoprolol tartrate, short acting, (LOPRESSOR) 50 mg tablet Take 1 tablet by mouth every 12 hours. 60 tablet 0 07/20/2022 01/15/2023 Discontinued Start: 06-15-2022 End: 07-20-2022 take 100 mg by mouth every twelve hours metoprolol succinate ER (TOPROL XL) 100 mg Take 1 tablet by mouth q 12 HR. 0 06/15/2022 07/20/2022 Discontinued Start: 02-18-2019 take 1 tablet by tierra th twice daily Metoprolol Succinate (Toprol Xl) 100 mg Tablet Extended Release 24 Hr Active 100 MG PO Twice daily April 30, 2021 1:00am Start: 02-18-2019 take 100 mg by mouth every twelve hours metoprolol succinate ER (TOPROL XL) 100 mg Take 100 mg by mouth q 12 HR. 0 02/18/2019 Active Start: 04-25-2005 TOPROL XL 50 M G 24 HR TAB Take one(1) tablet daily. 0 04/25/2005 Active take 1 tablet by tierra th every twelve hours Metoprolol Tartrate 50 MG 1 tablet with food Orally Twice a day Active Comment on above: Take one(1) tablet d aily. Take 100 mg by mouth q 12 HR. Take 1 tablet by tierra th q 12 HR. Take 1 tablet by tierra th every 12 hours. Take 1 tablet by tierra th every 12 hours 6am/6pm. metroNIDAZOLE 0.0075 mg/mg topical gel (8 sources) Nitroimidazole Antimicrobial Start: 09-26-2022 metroNIDAZOLE 0.75 % 1 application Externally Twice a day for 10 days Sep, Not-Taking/PRN Start: 09-26-2022 montelukast 10 mg oral tablet (2 sources) Leukotriene Receptor Antagonist Start: 04-25-2005 SINGULAIR 10 MG TAB Take one(1) tablet daily. 0 04/25/2005 Active Comment on above: Take one(1) tablet d aily. MULTIVITAMIN ORAL (13 sources) MULTIVITAMIN ORA L Take by mouth. 0 Suspended MULTIVITAMIN ORA L Take by mouth. 0 Active Comment on above: Take by mouth. NovoLOG 100 UNIT/ML SOLN (2 sources) Start: 09-30-2020 NovoLOG 100 UNIT/ML SOLN USE DIRECTED IN INSULIN PUMP. USE UP TO A MAXIMUM OF 70 UNITS DAILY Quantity: 60 Refills: 3 Ordered: 01-Feb-2021 Jose Villasenor PA-C Start : 30-Sep-2020 Active nutritional supplements 0.07 gram-1.5 kcal/mL liqd (12 sources) Start: 01-12-2022 nutritional supplements 0.07 gram-1.5 kcal/mL liqd 50 mL/hr by FEEDING TUBE route every 24 hours. Water flush of 100 ml of water every 6 hours with tube feeds. Flush corpak ever 6 hours with 20ml of water [id number] mL 0 01/12/2022 Active Start: 01-12-2022 End: 02-11-2022 nutritional supplements 0.07 gram-1.5 kcal/mL liqd 50 mL/hr by FEEDING TUBE route every 24 hours. Water flush of 100 ml of water every 6 hours with tube feeds. Flush corpak ever 6 hours with 20ml of water [id number] mL 0 01/12/2022 02/11/2022 Active Start: 01-03-2022 End: 02-02-2022 nutritional supplements 0.07 gram-1.5 kcal/mL liqd 50 mL/hr by FEEDING TUBE route every 24 hours. 50ml/hr for 24 hours continuous. Water flush 50ml every 6 hours. [id number] mL 0 01/03/2022 02/02/2022 Active Comment on above: 50 mL/hr by FEEDING TUBE route every 24 hours. 50ml/hr for 24 hours continuous. Water flush 50ml every 6 hours. 50 mL/hr by FEEDING TUBE route every 24 hours. Water flush of 100 ml of water every 6 hours with tube feeds. Flush corpak ever 6 hours with 20ml of water omeprazole 40 mg delayed release oral capsule (20 sources) Proton Pump Inhibitor Start: take 1 capsule by mouth once daily omeprazole (PRILOSEC) 40 mg capsule Take 1 capsule by mouth once daily. 90 capsule 0 08/23/2021 Active Comment on above: Take 1 capsule by [facility] once daily. oxyCODONE hydrochloride 5 mg oral tablet (11 sources) Opioid Agonist Start: 2 take 1 tablet by mouth every eight hours as needed for pain oxyCODONE IR (ROXICODONE) 5 mg immediate release tablet Indications: Post-op pain Take 1 tablet by mouth every 8 hours as needed for pain. 10 tablet 0 01/06/2022 Active take 1 tablet by [facility] every six hours as needed oxyCODONE HCl 5 MG 1 tablet as needed Orally, feeding tube every 6 hrs as needed for up to 7 days Active Comment on above: Take 1 tablet by [facility] every 8 hours as needed for pain. pantoprazole 40 mg delayed release oral tablet (20 sources) Proton Pump Inhibitor Start: 3 End: 3 take 1 tablet by mouth once daily, then take 6 tablets by mouth in the morning pantoprazole DR (PROTONIX) 40 mg tablet Take 1 tablet by mouth DAILY (6 AM). 30 tablet 0 07/20/2022 Active Comment on above: Take 1 tablet by [facility] DAILY (6 AM). posaconazole 100 mg delayed release oral tablet (20 sources) Azole Antifungal Start: [address] (NOXAFIL) 100 mg tablet Posaconazole (Noxafil) 300 mg Susp,Delayed Release For Recon Active 300 MG PO Daily August 08, 2022 12:00am 0 08/08/2022 Active Start: 07-20-2022 End: 07-20-2023 take 3 tablets by mouth once daily posaconazole DR (NOXAFIL) 100 mg tablet Take 3 tablets by mouth once daily. 90 tablet 11 07/20/2022 07/20/2023 Active Comment on above: Take 3 tablets by [facility] once daily. Posaconazole (Noxafi l) 300 mg Susp,Delayed Release For Recon Active 300 MG PO Daily August 08, 2022 12:00am 72 hr scopolamine 0.0139 mg/hr transdermal system (20 sources) Anticholinergic Start: 2021 scopolamine (TRANSDERM-SCOP) patch 1.5 mg/72 hr (1 mg over 3 days) Apply 1 Patch as directed every 72 hours. 5 Patch 1 05/25/2021 Active Comment on above: Apply 1 Patch as dir ected every 72 hours. SLIDING SCALE 1 LISPRO INSULIN (2 sources) Start: 2005 SLIDING SCALE 1 LISPRO INSULIN as directed 0 04/25/2005 Active Comment on above: as directed 1000 ml sodium chloride 9 mg/ml injection (18 sources) Start: 2022 End: 2022 inject 1 dose intravenously once 0.9 % sodium chloride (NACL 0.9%) infusion Indications: History of bladder cancer Inject 5-30 mL/hr intravenously one time only for 1 dose. Administer at rate defined per CT contrast administration specifications. To be provided with radiology test. 1 Each 0 01/09/2023 01/09/2023 Start: 05-02-2022 End: 05-02-2022 inject 1 dose intravenously once 0.9 % sodium chloride (NACL 0.9%) infusion Indications: History of bladder cancer Inject 5-30 mL/hr intravenously one time only for 1 dose. Administer at rate defined per CT contrast administration specifications. To be provided with radiology test. 1 Each 0 05/02/2022 05/02/2022 Start: 01-31-2022 End: 01-31-2022 inject 1 dose intravenously once 0.9 % sodium chloride (NACL 0.9%) infusion Indications: Malignant neoplasm of urinary bladder, unspecified site (HCC) Inject 5-30 mL/hr intravenously one time only for 1 dose. Administer at rate defined per CT contrast administration specifications. To be provided with radiology test. 1 Each 0 01/31/2022 01/31/2022 Active Start: 01-06-2022 End: 01-13-2022 take 1 tablet by mouth three times daily sodium chloride 1 gram tab Take 1 tablet by mouth three times daily for 7 days. 21 tablet 0 01/06/2022 01/13/2022 Active Start: 11-30-2021 End: 11-30-2021 inject 1 dose intravenously once 0.9 % sodium chloride (NACL 0.9%) infusion Indications: Malignant neoplasm of urinary bladder, unspecified site (HCC) Inject 5-30 mL/hr intravenously one time only for 1 dose. Administer at rate defined per CT contrast administration specifications. To be provided with radiology test. 1 Each 0 11/30/2021 11/30/2021 Active Start: 05-31-2021 0.9 % sodium c hloride (NACL 0.9%) 0.9% solp Inject 1,000 mL intravenously two times a week. x 2 weeks 4 Bag 1 05/31/2021 Suspended Comment on above: Inject 1,000 mL intr avenously two times a week. x 2 weeks Inject 5-30 mL/hr in travenously one time only for 1 dose. Administer at rate defined per CT contrast administration specifications. To be provided with radiology test. Take 1 tablet by [facility] three times daily for 7 days. sulfamethoxazole 800 mg / trimethoprim 160 mg oral tablet (15 sources) Dihydrofolate Reductase Inhibitor Antibacterial, Sulfonamide Antimicrobial Start: 2 take 1 tablet by mouth once daily sulfamethoxazo le-trimethopri m (BACTRIM DS,SEPTRA DS) 800-160 mg per tablet Take 1 tablet by mouth once daily. 45 tablet 0 01/06/2022 Active Start: 04-30-2021 End: 06-10-2021 take 1 tablet by mouth once daily Sulfamethoxazole-Trimethoprim Discontinu ed 1 TAB PO Daily April 30, 2021 1:00am June 10, 2021 2:30pm Comment on above: Take 1 tablet by [facility] once daily. SUMAtriptan 100 mg oral tablet (2 sources) Serotonin-1b and Serotonin-1d Receptor Agonist Start: 04-25-19 IMITREX 100 MG TAB as necessary 0 04/25/2005 Active Comment on above: as necessary tiZANidine 4 mg oral tablet (3 sources) Central alpha-2 Adrenergic Agonist Start: 05-05-19 End: 06-06-19 take 4 mg by mouth every eight hours Tizanidine Discontinued 4 MG PO Q8H May 05, 2021 1:00am June 06, 2021 4:51pm vancomycin 125 mg oral capsule (3 sources) Glycopeptide Antibacterial Start: 06-10-19 End: 08-09-19 take 125 mg by mouth every six hours Vancomycin Discontinued 125 MG PO Q6H 40 June 10, 2021 1:00am August 08, 2022 1:29pm Vitamin D3 2000 UNIT (8 sources) take 1 capsule by mouth once daily Vitamin D3 2000 UNIT 1 capsule Orally Once a day Not-Taking take 1 capsule by mouth once shane ly Vitamin D3 2000 UNIT 1 capsule Orally Once a day Active Problems Active Problems Problem Classification Problem Date Documented Da te Episodic/Chronic Abdominal pain (11 sources) Abdominal pain; 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: [Unspecified abdominal pain] Onset: 01-08-2022 Episodic Acute and unspecified renal failure (3 sources) Injury of kidney; 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: [Acute kidney failure, unspecified] 04-30-2021 Episodic Administrative/social admission (10 sources) Other reduced mobility; 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: [Reduced mobility] Onset: 07-21-2022 Episodic Anxiety disorders (13 sources) Claustrophobia; 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: [Claustrophobia] Chronic Asthma (20 sources) Asthma; 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: [Unspecified asthma, uncomplicated] Onset: 02-16-2021 02-16-2021 Chronic Cancer of bladder (20 sources) Malignant tumor of urinary bladder; 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: [Malignant neoplasm of bladder, unspecified] Onset: 04-20-2021 04-27-2021 Chronic Cancer of other urinary organs (7 sources) Malignant epithelial neoplasm; 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: [Malignant neoplasm of urinary organ, unspecified] Chronic Cataract (20 sources) Bilateral age-related nuclear cataracts; 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: [Age-related nuclear cataract, bilateral] Chronic Chronic ulcer of skin (20 sources) Ulcer of back; 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: [Pressure ulcer of sacral region, unstageable] Onset: 06-16-2022 06-16-2022 Chronic Diabetes mellitus with complications (20 sources) Type 1 diabetes mellitus uncontrolled; 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: [Diabetes with other specified manifestations, type I [juvenile type], uncontrolled] Onset: 01-07-2022 06-06-2021 Chronic Diabetes mellitus without complication (20 sources) Type 1 diabetes mellitus; 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: [Type 1 diabetes mellitus without complications] Onset: 04-13-2021 04-13-2021 Chronic Diabetes mellitus without complication (20 sources) Insulin pump present; 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: [Hyperglycemia] Onset: 2022 Episodic Disorders of lipid metabolism (20 sources) Hyperlipidemia; 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: [Hyperlipidemia, unspecified] Chronic Encephalitis (except that caused by tuberculosis or sexually transmitted disease) (2 sources) Myelitis; 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: [Myelitis, unspecified] 02-09-2023 Episodic Esophageal disorders (6 sources) Gastro-esophageal reflux disease with esophagitis; 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: [Gastroesophageal reflux disease with esophagitis without hemorrhage] Chronic Essential hypertension (20 sources) Hypertensive disorder; 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: [Essential (primary) hypertension] Onset: 02-16-2021 02-16-2021 Chronic Fracture of lower limb (4 sources) Nondisplaced transverse fracture of left patella, subsequent encounter for closed fracture with routine healing; 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: [Nondisplaced transverse fracture of left patella, initial encounter for closed fracture] Onset: 05-10-2023 Episodic Genitourinary symptoms and ill-defined conditions (1 source) Other artificial openings of urinary tract status; 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: [OTH ARTFICIL OPEN URIN TRACT STATUS] Onset: 05-23-2022 Chronic Genitourinary symptoms and ill-defined conditions (7 sources) Dysuria; 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: [Dysuria] Episodic Inflammation; infection of eye (except that caused by tuberculosis or sexually transmitteddisease) (2 sources) Unspecified acute conjunctivitis, right eye; 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: [Hordeolum externum right lower eyelid] Episodic Intestinal obstruction without hernia (5 sources) Small bowel obstruction; 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: [Unspecified intestinal obstruction, unspecified as to partial versus complete obstruction] Onset: 12-16-2021 Episodic Nausea and vomiting (5 sources) Nausea and vomiting; 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: [Nausea with vomiting, unspecified] Onset: 03-17-2022 Episodic Nonmalignant breast conditions (11 sources) Unspecified lump in the right breast, upper outer quadrant; 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: [Lump in upper outer quadrant of right breast] Episodic Nutritional deficiencies (20 sources) Vitamin D deficiency; 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: [Unspecified vitamin D deficiency] Onset: 12-20-2021 12-21-2021 Chronic Nutritional deficiencies (20 sources) Cobalamin deficiency; 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: [Deficiency of other specified B group vitamins] Onset: 04-19-2022 Episodic Other aftercare (20 sources) Long-term current use of insulin; 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: [Long-term (current) use of insulin] Episodic Other aftercare (2 sources) Long-term current use of antibiotic; 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: [care home (current) use of antibiotics] 02-09-2023 Episodic Other diseases of veins and lymphatics (9 sources) Peripheral venous insufficiency; 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: [Venous insufficiency (chronic) (peripheral)] Episodic Other diseases of veins and lymphatics (1 source) Venous insufficiency (chronic) (peripheral) Episodic Other fractures (2 sources) Unspecified fracture of third thoracic vertebra, subsequent encounter for fracture with nonunion; 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: [Unspecified fracture of third thoracic vertebra, subsequent encounter for fracture with nonunion] Onset: 07-21-2022 Episodic Other gastrointestinal disorders (20 sources) Ileostomy present; 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: [Ileostomy status] Chronic Other gastrointestinal disorders (3 sources) Ileostomy status Chronic Other gastrointestinal disorders (1 source) Colostomy status; 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: [COLOSTOMY STATUS] Onset: 05-23-2022 Chronic Other inflammatory condition of skin (8 sources) Rosacea; 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: [Rosacea, unspecified] Chronic Other inflammatory condition of skin (1 source) Rosacea, unspecified Chronic Other nervous system disorders (3 sources) Metabolic encephalopathy; 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: [Metabolic encephalopathy] 06-06-2021 Chronic Other nervous system disorders (20 sources) Hydrocephalus; 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: [Hydrocephalus, unspecified] Chronic Other nervous system disorders (20 sources) Intraspinal space-occupying lesion; 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: [Other specified diseases of spinal cord] Onset: 06-15-2022 06-15-2022 Chronic Other nervous system disorders (2 sources) Hydrocephalus, unspecified; 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: [HYDROCEPHALUS UNSPECIFIED] Onset: 08-10-2022 Chronic Other nervous system disorders (2 sources) Other specified diseases of spinal cord; 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: [Spinal cord mass (HCC)] Onset: 07-20-2022 Chronic Other nervous system disorders (1 source) (Idiopathic) normal pressure hydrocephalus; 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: [IDIOPATH NORMAL PRESS HYDROCEPHALUS] Onset: 05-23-2022 Chronic Other nervous system disorders (1 source) Metabolic encephalopathy; 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: [Metabolic encephalopathy] Onset: 05-27-2022 Chronic Other nervous system disorders (2 sources) Obstructive hydrocephalus; 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: [Obstructive hydrocephalus] 02-09-2023 Chronic Other nervous system disorders (1 source) Other hydrocephalus; 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: [Other hydrocephalus (HCC)] Onset: 09-14-2022 Chronic Other non-traumatic joint disorders (1 source) Shoulder pain; 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: [Pain in right shoulder] 03-19-2023 Episodic Other non-traumatic joint disorders (1 source) Pain of right wrist; 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: [Right wrist pain] Other nutritional; endocrine; and metabolic disorders (20 sources) Body mass index 30+ - obesity; 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: [Body Mass Index 30.0-30.9, adult] Chronic Other nutritional; endocrine; and metabolic disorders (20 sources) Obesity; 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: [Obesity, unspecified] Onset: 02-16-2021 02-19-2021 Chronic Other nutritional; endocrine; and metabolic disorders (20 sources) Hypophosphatemia; 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: [Other disorders of phosphorus metabolism] Onset: 12-21-2021 12-21-2021 Chronic Other nutritional; endocrine; and metabolic disorders (20 sources) Hypomagnesemia; 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: [Hypomagnesemia] Onset: 01-05-2022 01-05-2022 Chronic Other nutritional; endocrine; and metabolic disorders (1 source) Abnormal weight loss Episodic Other nutritional; endocrine; and metabolic disorders (1 source) Personal history of other endocrine, nutritional and metabolic disease Episodic Other screening for suspected conditions (not mental disorders or infectious disease) (10 sources) Patient encounter status; 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: [Encounter for screening for malignant neoplasm of colon] Onset: 05-27-2022 Episodic Other upper respiratory infections (2 sources) Acute maxillary sinusitis, unspecified; 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: [Acute laryngitis] Episodic Residual codes; unclassified (4 sources) Dependence on other enabling machines and devices; 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: [Walker as ambulation aid] 08-08-2022 Chronic Residual codes; unclassified (1 source) Early satiety; 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: [Early satiety] Episodic Residual codes; unclassified (3 sources) Unable to perform personal care activity; 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: [Other specified health status] 01-08-2022 Episodic Residual codes; unclassified (3 sources) Altered mental status; 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: [Altered mental status, unspecified] 01-08-2022 Episodic Residual codes; unclassified (4 sources) Other specified health status; 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: [Other specified conditions influencing health status] Onset: 07-21-2022 01-08-2022 Episodic Residual codes; unclassified (1 source) Asymptomatic menopausal state Episodic Septicemia (except in labor) (4 sources) Sepsis; 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: [Sepsis, unspecified organism] Onset: 05-23-2022 06-06-2021 Episodic Spinal cord injury (2 sources) Unspecified injury at T2-T6 level of thoracic spinal cord, subsequent encounter; 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: [Unspecified injury at t2-t6 level of thoracic spinal cord, subsequent encounter] Onset: 07-21-2022 Episodic Unclassified (1 source) APPOINTMENT CANCELLED Unclassified (1 source) CONTACT W/AND (SUSP) EXPOS COVID-19; 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: [CONTACT W/AND (SUSP) EXPOS COVID-19] Onset: 2022 Unclassified (1 source) ACIDOSIS UNSPECIFIED; 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: [ACIDOSIS UNSPECIFIED] Onset: 2022 Unclassified (2 sources) LOW BACK PAIN, UNSPECIFIED; 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: [LOW BACK PAIN, UNSPECIFIED] Onset: 02-02-2022 Unclassified (4 sources) Thin build in adult; 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: [Thin build in adult] 08-08-2022 Unclassified (1 source) Pressure ulcer of sacral region, stage 3; 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: [Pressure ulcer of sacral region, stage 3] Onset: 09-28-2022 Viral infection (1 source) COVID-19; 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: [COVID-19] Onset: 03-17-2022 Past or Other Problems Problem Classification Problem Date Documented Da te Episodic/Chronic Bacterial infection; unspecified site (1 source) Proteus (mirabilis) (morganii) as the cause of diseases classified elsewhere; 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: [PROTEUS CAUSE OF DZ CLASS ELSW] Onset: 04-19-2022 Episodic Cancer of bladder (7 sources) H/O: malignant neoplasm; 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: [Personal history of malignant neoplasm of bladder] Onset: 04-19-2022 Episodic Cardiac dysrhythmias (20 sources) Palpitations; 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: [Palpitations] Onset: 02-16-2021 02-16-2021 Episodic Coma; stupor; and brain damage (3 sources) Unspecified coma; 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: [UNSPECIFIED COMA] Onset: 05-27-2022 Episodic Deficiency and other anemia (1 source) Iron deficiency anemia, unspecified; 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: [IRON DEFICIENCY ANEMIA UNSPECIFIED] Onset: 05-23-2022 Episodic E Codes: Struck by; against (1 source) Striking against other object with subsequent fall, initial encounter; 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: [STRIK AGNST OTH OBJ SBSQT FALL INIT] Onset: 02-02-2022 Episodic Epilepsy; convulsions (3 sources) Seizure; 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: [Unspecified convulsions] Onset: 05-27-2022 06-04-2022 Episodic Esophageal disorders (1 source) Esophageal disorders Fluid and electrolyte disorders (20 sources) Hypokalemia; 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: [Hypokalemia] Onset: 12-21-2021 12-21-2021 Episodic Malaise and fatigue (6 sources) Weakness; 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: [Other malaise] Onset: 04-16-2022 Episodic Meningitis (except that caused by tuberculosis or sexually transmitted disease) (5 sources) Meningitis, unspecified; 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: [Fungal meningitis] Onset: 03-19-2023 Episodic Neoplasms of unspecified nature or uncertain behavior (20 sources) Neoplasm of bladder; 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: [Neoplasm of unspecified behavior of bladder] Onset: 02-16-2021 02-19-2021 Episodic Other aftercare (3 sources) care home (current) use of insulin; 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: [COMPUTER ASSEMBLER CURRENT USE OF INSULIN] Onset: 2022 Episodic Other aftercare (1 source) Other nursing home (current) drug therapy; 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: [OTH COMPUTER ASSEMBLER CURRENT DRUG THERAPY] Onset: 2022 Episodic Other aftercare (1 source) Encounter for therapeutic drug level monitoring; 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: [Therapeutic drug monitoring] Onset: 08-21-2022 Episodic Other bone disease and musculoskeletal deformities (16 sources) Lesion of lumbar spine; 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: [Disorder of bone, unspecified] Onset: 06-10-2022 06-14-2022 Episodic Other diseases of kidney and ureters (20 sources) Hydronephrosis; 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: [Unspecified hydronephrosis] Onset: 01-09-2022 01-09-2022 Episodic Other lower respiratory disease (1 source) Shortness of breath; 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: [SHORTNESS OF BREATH] Onset: 2022 Episodic Other non-traumatic joint disorders (1 source) Pain in right shoulder; 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: [Acute pain of both shoulders] Onset: 03-19-2023 Episodic Other non-traumatic joint disorders (1 source) Pain in left shoulder; 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: [Acute pain of both shoulders] Onset: 03-19-2023 Episodic Other nutritional; endocrine; and metabolic disorders (1 source) Body mass index (BMI) 19.9 or less, adult; 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: [BODY MASS INDEX 19.9 OR LESS ADULT] Onset: 04-19-2022 Episodic Residual codes; unclassified (4 sources) Altered mental status, unspecified; 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: [Altered mental status] Onset: 05-08-2022 01-08-2022 Episodic Residual codes; unclassified (1 source) Other specified postprocedural states; 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: [OTH SPECIFIED POSTPROCEDURAL STATES] Onset: 02-27-2022 Episodic Residual codes; unclassified (1 source) 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; 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: [ACQ ABSENCE OTH PARTS URINARY TRACT] Onset: 01-10-2022 Episodic Respiratory failure; insufficiency; arrest (adult) (3 sources) Acute respiratory failure; 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: [Acute respiratory failure, unspecified whether with hypoxia or hypercapnia] Onset: 05-27-2022 05-27-2022 Episodic Spondylosis; intervertebral disc disorders; other back problems (20 sources) Chronic low back pain; 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: [Chronic low back pain without sciatica, unspecified back pain laterality] Onset: 03-13-2022 Episodic Sprains and strains (1 source) Strain of muscle, fascia and tendon of lower back, initial encounter; 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: [STRAIN MUSC FASC TENDON LW BACK INT] Onset: 02-02-2022 Episodic Unclassified (4 sources) Long-term current use of insulin; 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: [Insulin long-term use] Unclassified (1 source) LOW BACK PAIN, UNSPECIFIED; 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: [LOW BACK PAIN, UNSPECIFIED] Onset: 01-31-2022 Urinary tract infections (1 source) Urinary tract infection, site not specified; 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: [UTI SITE NOT SPECIFIED] Onset: 05-23-2022 Episodic NEGATED: Highlighted row has not occurred!Residual codes; unclassified (3 sources) Disease Episodic Results Test Name Value Interpretation Reference Range Facility CNPTOUTREACHon 06-20-2023 CNPTOUTREACH Normal [facility] CT CHEST W IVCONon CT CHEST W IVCON Normal [facility] CT UROGRAM WO/W IVCONon 03-0 CT UROGRAM WO/W IVCON Normal [facility] XR KNEE 2V AP/LAT LTon 06-17 XR KNEE 2V AP/LAT LT Normal [facility] CBC W Auto Differential pane l (Bld)on 05-10-2023 Basophils (Bld) [#/Vol] 0.04 10*3/uL Normal <0.11 [facility] Comment on above: Order Comment: Speci men Type: BLOOD SPECIMENOrdering Facility: [facility] Address: [address] [place] [address] Performed By: #### 5 7021-8 ####[facility] LABCLIA [id number] [place] Basophils/100 WBC (Bld) 0.6 % Normal [facility] Comment on above: Order Comment: Speci men Type: BLOOD SPECIMENOrdering Facility: [facility] Address: [address] [place] [address] Performed By: #### 5 7021-8 ####[facility] LABCLIA [id number] [place] [address] [place] Differential cell count method Nom (Bld) Auto Normal [facility] Comment on above: Order Comment: Speci men Type: BLOOD SPECIMENOrdering Facility: [facility] Address: [address] [place] [address] Performed By: #### 5 7021-8 ####[facility] LABCLIA [id number] [place] [address] [place] Eosinophils (Bld) [#/Vol] 0.08 10*3/uL Normal <0.46 [facility] Comment on above: Order Comment: Speci men Type: BLOOD SPECIMENOrdering Facility: [facility] Address: [address] [place] [address] Performed By: #### 5 7021-8 ####[facility] LABCLIA [id number] [address] [place] Eosinophils/100 WBC (Bld) 1.2 % Normal [facility] Comment on above: Order Comment: Speci men Type: BLOOD SPECIMENOrdering Facility: [facility] Address: [address] [place] [address] Performed By: #### 5 7021-8 ####[facility] LABCLIA [id number] [place] [address] [place] Erythrocyte distribution width (RBC) [Ratio] 14.5 % Normal 11.5-15.0 [facility] Comment on above: Order Comment: Speci men Type: BLOOD SPECIMENOrdering Facility: [facility] Address: [address] [place] [address] Performed By: #### 5 7021-8 ####[facility] LABCLIA [id number] [place] [address] [place] Hematocrit (Bld) [Volume fraction] 38.2 % Normal 36.0-46.0 [facility] Comment on above: Order Comment: Speci men Type: BLOOD SPECIMENOrdering Facility: [facility] Address: [address] [place] [address] Performed By: #### 5 7021-8 ####[facility] LABIA [id number] [place] [address] [place] Hemoglobin (Bld) [Mass/Vol] 12.1 g/dL Normal 11.5-15.5 [facility] Comment on above: Order Comment: Speci men Type: BLOOD SPECIMENOrdering Facility: [facility] Address: [address] [place] [address] Performed By: #### 5 7021-8 ####[facility] LABIA [id number] [place] [address] [place] Immature granulocytes (Bld) [#/Vol] 10*3/uL Normal <0.10 [facility] Comment on above: Order Comment: Speci men Type: BLOOD SPECIMENOrdering Facility: [facility] Address: [address] [place] [address] Performed By: #### 5 7021-8 ####[facility] LABCLIA [id number] [place] [address] [place] Immature granulocytes/100 WBC (Bld) 0.2 % Normal [facility] Comment on above: Order Comment: Speci men Type: BLOOD SPECIMENOrdering Facility: [facility] Address: [address] [place] [address] Performed By: #### 5 7021-8 ####[facility] LABCLIA [id number] [place] [address] [place] Lymphocytes (Bld) [#/Vol] 1.25 10*3/uL Normal 1.00-4.00 [facility] Comment on above: Order Comment: Speci men Type: BLOOD SPECIMENOrdering Facility: [facility] Address: [address] [place] [address] Performed By: #### 5 7021-8 ####[facility] LABIA [id number] [place] [address] [place] Lymphocytes/100 WBC (Bld) 19.4 % Normal [facility] Comment on above: Order Comment: Speci men Type: BLOOD SPECIMENOrdering Facility: [facility] Address: [address] [place] [address] Performed By: #### 5 7021-8 ####[facility] LABIA [id number] [place] [address] [place] MCH (RBC) [Entitic mass] 29.4 pg Normal 26.0-34.0 [facility] Comment on above: Order Comment: Speci men Type: BLOOD SPECIMENOrdering Facility: [facility] Address: [address] [place] [address] Performed By: #### 5 7021-8 ####[facility] LABCLIA [id number] [place] [address] [place] MCHC (RBC) [Mass/Vol] 31.7 g/dL Normal 30.5-36.0 [facility] Comment on above: Order Comment: Speci men Type: BLOOD SPECIMENOrdering Facility: [facility] Address: [address] [place] [address] Performed By: #### 5 7021-8 ####[facility] LABCLIA [id number] [place] [address] [place] MCV (RBC) [Entitic vol] 92.9 fL Normal 80.0-100.0 C [facility] Comment on above: Order Comment: Speci men Type: BLOOD SPECIMENOrdering Facility: [facility] Address: [address] [place] [address] Performed By: #### 5 7021-8 ####[facility] LABCLIA [id number] [place] [address] [place] Monocytes (Bld) [#/Vol] 0.83 10*3/uL Normal <0.87 [facility] Comment on above: Order Comment: Speci men Type: BLOOD SPECIMENOrdering Facility: [facility] Address: [address] [place] [address] Performed By: #### 5 7021-8 ####[facility] LABCLIA [id number] [place] [address] [place] Monocytes/100 WBC (Bld) 12.9 % Normal C [facility] Comment on above: Order Comment: Speci men Type: BLOOD SPECIMENOrdering Facility: [facility] Address: [address] [place] [address] Performed By: #### 5 7021-8 ####[facility] LABCLIA [id number] [place] [address] [place] Neutrophils (Bld) [#/Vol] 4.24 10*3/uL Normal 1.45-7.50 [facility] Comment on above: Order Comment: Speci men Type: BLOOD SPECIMENOrdering Facility: [facility] Address: [address] [place] [address] Performed By: #### 5 7021-8 ####[facility] LABCLIA [id number] [place] [address] [place] Neutrophils/100 WBC (Bld) 65.7 % Normal [facility] Comment on above: Order Comment: Speci men Type: BLOOD SPECIMENOrdering Facility: [facility] Address: [address] [place] [address] Performed By: #### 5 7021-8 ####[facility] LABCLIA [id number] [place] [address] [place] Nucleated RBC (Bld) [#/Vol] 10*3/uL Normal <0.01 [facility] Comment on above: Order Comment: Speci men Type: BLOOD SPECIMENOrdering Facility: [facility] Address: [address] [place] [address] Performed By: #### 5 7021-8 ####[facility] LABCLIA [id number] [place] [address] [place] Nucleated RBC/100 WBC (Bld) [Ratio] 0.0 /100 WBC Normal [facility] Comment on above: Order Comment: Speci men Type: BLOOD SPECIMENOrdering Facility: [facility] Address: [address] [place] [address] Performed By: #### 5 7021-8 ####[facility] LABCLIA [id number] [place] [address] [place] Platelet mean volume (Bld) [Entitic vol] 9.9 fL Normal 9.0-12.7 [facility] Comment on above: Order Comment: Speci men Type: BLOOD SPECIMENOrdering Facility: [facility] Address: [address] [place] [address] Performed By: #### 5 7021-8 ####[facility] LABCLIA [id number] [place] [address] [place] Platelets (Bld) [#/Vol] 318 10*3/uL Normal 150-400 [facility] Comment on above: Order Comment: Speci men Type: BLOOD SPECIMENOrdering Facility: [facility] Address: [address] [place] [address] Performed By: #### 5 7021-8 ####[facility] LABCLIA [id number] [place] [address] [place] RBC (Bld) [#/Vol] 4.11 10*6/uL Normal 3.90-5.20 [facility] Comment on above: Order Comment: Speci men Type: BLOOD SPECIMENOrdering Facility: [facility] Address: [address] [place] [address] Performed By: #### 5 7021-8 ####[facility] LABCLIA [id number] [place] [address] [place] WBC (Bld) [#/Vol] 6.45 10*3/uL Normal 3.70-11.00 [facility] Comment on above: Order Comment: Speci men Type: BLOOD SPECIMENOrdering Facility: [facility] Address: [address] [place] [address] Performed By: #### 5 7021-8 ####[facility] LABIA [id number] [place] [address] [place] CNOVon 05-10-2023 CNOV Office Visit (ORFWHP ) CHIKIS TOBAR ([id number]) 1965 F Date Time Provider Department 05/10/23 3:20 PM AASHISH MONGE ORFWHP During your visit today, we recorded the following information about you: Aashish Monge PA-C 05/10/2023 4:43 PM Signed Aashish Montilla PA-C 05/10/2023 4:43 PM Signed [facility] Established Visit Date of Injury: 04/11/2023 Injury: Closed treatment of left patella fracture History: Patient presents to clinic 4 weeks from the above injury. She is doing well today. She has been WBAT with hinged knee brace locked in extension. She has been using a walker to ambulate. States her pain is controlled and she denies numbness or tingling. Physical Exam: There were no vitals filed for this visit. General: No acute distress, alert and oriented x3 and Awake and alert Left Lower Extremity: Skin:Closed without ulcerations, lacerations, rashes or abrasions and Minimal swelling with wrinkles present Vascular: Foot warm and well perfused with brisk capillary refill and Palpable DP/PT pulse Neuro: Sensation intact in saphenous/sural/deep peroneal/superficial peroneal/tibial nerve distribution Musculoskeletal: Tenderness to palpation over Fracture Imaging: I personally reviewed xrays and discussed with patient: Demonstrate maintained alignment no interval displacement, fracture line still visible Assessment and Plan: Patient is a 57 year old female 4 weeks s/p closed patella fracture -Patient is progressing appropriately -Plan to continue closed, nonoperative treatment -Recommended Tylenol for pain control -Can begin to unlock hinged knee brace 0-40 to work on ROM of knee -Continue WBAT with brace locked in extension -Starting in 3 weeks can unlock brace for ROMAT -Weightbearing: Weight bearing as tolerated -Follow up: 4-6 weeks with x-rays Aashish Monge PA-C Allergies As of Date: 05/10/2023 Noted Allergy Reaction DEMERAL (MEPERIDINE) 02/09/2021 8 - GI Upset Comments: Nausea, pt states room spins FLEXERIL (CYCLOBENZAPRINE) 02/09/2021 4 - Hives VERSED (MIDAZOLAM) 02/18/2021 1 - Mental Status Change Date Reviewed: 05/10/2023 Reviewed by: Taiwo Mcwilliams - Fully Assessed Reason for Visit: Established Patient [175] Primary Visit Diagnosis:Closed nondisplaced transverse fracture of left patella, initial encounter [S82.035A] Order(s):CONSULT TO PHYSICAL THERAPY [9032] Order #: [id number]: 1 FUTURE XR KNEE LIMITED 2V AP/LAT LEFT [2993592] Order #: [id number] FUTURE Prescriptions as of 05/10/2023 - posaconazole DR (NOXAFIL) 100 mg tablet Posaconazole (Noxafil) 300 mg Susp,Delayed Release For Recon Active 300 MG PO Daily August 08, 2022 12:00am - metoprolol succinate ER (TOPROL XL) 100 mg Take 1 tablet by mouth every 12 hours 6am/6pm. - posaconazole DR (NOXAFIL) 100 mg tablet Take 3 tablets by mouth once daily. - pantoprazole DR (PROTONIX) 40 mg tablet Take 1 tablet by mouth DAILY (6 AM). - calcium carbonate (TUMS) 500 mg chew Take 1 tablet by mouth three times daily as needed. - insulin lispro (HUMALOG U-100 INSULIN) 100 unit/mL injection Inject 0-5 units subcutaneously at bedtime. <110 Give 0 units 111-150 Give 0 units 151-200 Give 1 unit 201-250 Give 2 units 251-300 Give 3 units 301-350 Give 4 units 351-400 Give 5 units >400 give 5units and notify provider. - glucagon (BAQSIMI) 3 mg/actuation nasal spray Use 1 [place] in the nose as needed. - acetaminophen (TYLENOL) 325 mg tablet Take 2 tablets by mouth every 6 hours as needed for pain. - L.acid-L.casei-B.bif-B. mary beth-FOS (PROBIOTIC BLEND) 2 billion cell-50 mg cap Take 1 capsule by mouth once daily. - fexofenadine (ALESSIO) 180 mg tablet Take by mouth. PRN - ferrous sulfate 325 mg (65 mg iron) tablet Take 1 tablet by mouth every other day. - lactobacillus rhamnosus (CULTURELLE) 10 billion cell capsule (Discontinued) Take 1 capsule by mouth once daily. Problem List As Of Date 05/10/2023 Noted Resolved Neoplasm of bladder [D49.4] 02/16/2021 Asthma [J45.909] 02/16/2021 HTN (hypertension) [I10] 02/16/2021 Palpitations [R00.2] 02/16/2021 Obesity [E66.9] 02/16/2021 06/11/2022 Type 1 diabetes mellitus with unspecified compl* Malignant neoplasm of urinary bladder (HCC) [C6*04/20/2021 Small bowel obstruction (HCC) [K56.609] 12/16/2021 12/21/2021 Severe protein-calorie malnutrition (HCC) [E43] 12/20/2021 Hypokalemia [E87.6] 12/21/2021 Hypophosphataemia [E83.39] 12/21/2021 Hyponatremia [E87.1] 01/05/2022 Hypomagnesemia [E83.42] 01/05/2022 Hydronephrosis [N13.30] 01/09/2022 Chronic low back pain without sciatica [M54.50,*03/13/2022 Lesion of lumbar spine [M89.9] 06/10/2022 Spinal cord mass (HCC) [G95.89] 06/15/2022 Unstageable pressure ulcer of sacral region (HC*06/16/2022 Disposition: Return in about 4 weeks (around 06/07/2023) for Im (more content not included)... Normal [facility] CNOV Normal [facility] CRP SerPl-mCncon 05-10-2023 CRP [Mass/Vol] 1.7 mg/dL High <0.9 [facility] Comment on above: Order Comment: Speci men Type: BLOOD SPECIMENOrdering Facility: [facility] Address: [address] [place] [address] Performed By: #### 2 4323-8, 1987-08 ####[facility] LABCLIA [id number] [place] [address] [place] Comprehensive metabolic 2000 panelon 05-10-2023 Albumin [Mass/Vol] 4.3 g/dL Normal 3.9-4.9 [facility] Comment on above: Order Comment: Speci men Type: BLOOD SPECIMENOrdering Facility: [facility] Address: [address] [place], [place] [id number] Performed By: #### 2 4323-8, 1987-08 ####[facility] LABCLIA [id number] [place] [address] [place] ALP [Catalytic activity/Vol] 105 U/L Normal 34-123 [facility] Comment on above: Order Comment: Speci men Type: BLOOD SPECIMENOrdering Facility: [facility] Address: [address] [place] [address] Performed By: #### 2 4322-11, 1987-08 ####[facility] LABCLIA [id number] [address] [address] [place] ALT [Catalytic activity/Vol] 20 U/L Normal 7-38 [facility] Comment on above: Order Comment: Speci men Type: BLOOD SPECIMENOrdering Facility: [facility] Address: [address] [place] [address] Performed By: #### 2 4322-11, 1987-08 ####[facility] LABCLIA [id number] [address] [address] [place] Anion gap [Moles/Vol] 11 mmol/L Normal 9-18 [facility] Comment on above: Order Comment: Speci men Type: BLOOD SPECIMENOrdering Facility: [facility] Address: [address] [place] [address] Performed By: #### 2 4322-11, 1987-08 ####[facility] LABCLIA [id number] [place] [address] [place] AST [Catalytic activity/Vol] 21 U/L Normal 13-35 [facility] Comment on above: Order Comment: Speci men Type: BLOOD SPECIMENOrdering Facility: [facility] Address: [address] [place] [address] Performed By: #### 2 4322-11, 1987-08 ####[facility] LABCLIA [id number] [place] [id number] [place] Bilirubin [Mass/Vol] 0.4 mg/dL Normal 0.2-1.3 [facility] Comment on above: Order Comment: Speci men Type: BLOOD SPECIMENOrdering Facility: [facility] Address: [address] [place], [place] [address] Performed By: #### 2 4322-11, 1987-08 ####[facility] LABIA [id number] [address] [id number] [address] [place] Calcium [Mass/Vol] 10.0 mg/dL Normal 8.5-10.2 [facility] Comment on above: Order Comment: Speci men Type: BLOOD SPECIMENOrdering Facility: [facility] Address: [address] [place] [address] Performed By: #### 2 4322-11, 1987-08 ####[facility] LABCLIA [id number] [facility] [address] [address] [place] Chloride [Moles/Vol] 104 mmol/L Normal 97-105 [facility] Comment on above: Order Comment: Speci men Type: BLOOD SPECIMENOrdering Facility: [facility] Address: [address] [place] [address] Performed By: #### 2 4322-11, 1987-08 ####[facility] LABCLIA [id number] [place] [id number] [place] CO2 [Moles/Vol] 28 mmol/L Normal 22-30 [facility] Comment on above: Order Comment: Speci men Type: BLOOD SPECIMENOrdering Facility: [facility] Address: [address] [place] [address] Performed By: #### 2 4322-11, 1987-08 ####[facility] LABCLIA [id number] [address] [address] [place] Creatinine [Mass/Vol] 0.67 mg/dL Normal 0.58-0.96 [facility] Comment on above: Order Comment: Speci men Type: BLOOD SPECIMENOrdering Facility: [facility] Address: [address] [place] [address] Performed By: #### 2 4322-11, 1987-08 ####[facility] LABCLIA [id number] [address] [address] [place] Creatinine and Glomerular filtration rate.predicted panel (S/P/Bld) 103 mL/min/1.73m??? Normal >=60 [facility] Comment on above: Order Comment: Speci men Type: BLOOD SPECIMENOrdering Facility: [facility] Address: [address] [place] [address] Result Comment: Maritza mated Glomerular Filtration Rate (eGFR) is calculated using the 2020 CKD-EPI creatinine equation. This equation utilizes serum creatinine, sex, and age as parameters. The creatinine assay has traceable calibration to isotope dilution-mass spectrometry. Refer to KDIGO guidelines for clinical interpretation. In patients with unstable renal function, e.g. those with acute kidney injury, the eGFR may not accurately reflect actual GFR. Performed By: #### 2 43238, 1987-08 ####[facility] LABIA [id number] [address] [address] [place] Glucose [Mass/Vol] 137 mg/dL High 74-99 [facility] Comment on above: Order Comment: [place] Type: BLOOD SPECIMENOrdering Facility: [facility] Address: [address] [place] [id number] Result Comment: The [place] Diabetes [employer] (ADA) provides guidance for cutoff values for fasting glucose and random glucose. The ADA defines fasting as no caloric intake for at least 8 hours. Fasting plasma glucose results between 100 to 125 mg/dL indicate increased risk for diabetes (prediabetes).Fasting plasma glucose results greater than or equal to 126 mg/dL meet the criteria for diagnosis of diabetes. In the absence of unequivocal hyperglycemia, results should be confirmed by repeat testing. In a patient with classic symptoms of hyperglycemia or hyperglycemic crisis, random plasma glucose results greater than or equal to 200 mg/dL meet the criteria for diagnosis of diabetes.Reference: Standards of Medical Care in Diabetes 2016, [place] [employer] Association. Diabetes Care. 2016.39(Suppl 1). Performed By: #### 2 43238, 1987-08 ####[facility] [id number] [address] [address] [place] Potassium [Moles/Vol] 4.2 mmol/L Normal 3.7-5.1 [facility] Comment on above: Order Comment: [place] Type: BLOOD SPECIMENOrdering Facility: [facility] Address: [address] [place] [address] Performed By: #### 2 43238, 1987-08 ####[facility] LABCLIA [id number] [address] [address] [place] Protein [Mass/Vol] 7.0 g/dL Normal 6.3-8.0 [facility] Comment on above: Order Comment: Speci men Type: BLOOD SPECIMENOrdering Facility: [facility] Address: [address] [place] [address] Performed By: #### 2 43206-21, 1987-08 ####[facility] LABIA [id number] [place] [address] [place] Sodium [Moles/Vol] 143 mmol/L Normal 136-144 [facility] Comment on above: Order Comment: Speci men Type: BLOOD SPECIMENOrdering Facility: [facility] Address: [address] [place] [address] Performed By: #### 2 43206-21, 1987-08 ####[facility] LABIA [id number] [place] [address] [place] Urea nitrogen [Mass/Vol] 24 mg/dL High 7-21 [facility] Comment on above: Order Comment: Speci men Type: BLOOD SPECIMENOrdering Facility: [facility] Address: [address] [place] [address] Performed By: #### 2 43206-21, 1987-08 ####[facility] LABIA [id number] [place] [id number] [place] POSACONAZOLE, SERUMon 2023 Posaconazole [Mass/Vol] 2.7 ug/mL Normal 0.7-3.9 C [facility] Comment on above: Order Comment: Speci men Type: BLOOD SPECIMENOrdering Facility: [facility] Address: [address] [place] [address] Result Comment: Rang es are based on trough draw at steady-state concentration.Therapeutic: >0.9 ug/mLProphylactic: >0.6 ug/mLToxic: >3.9 ug/mLThe therapeutic, prophylactic, and toxic ranges were based on the 2016 Infectious Disease Society of [place]'s (IDSA) Clinical Practice Guidelines for the Management of Aspergillosis and Candidiasis and consultation from [facility]'s Department of Infectious Disease.Reference ranges and high/low indicator flags are provided as general guidelines only. The treating physician must determine appropriate target levels/dosing based on the specific clinical situation.This test was developed and its performance characteristics determined by [facility]'s [facility] Pathology and Laboratory Medicine [place] ([facility]). It has not been cleared or approved by the FDA. -[facility] is regulated under CLIA as qualified to perform high-complexity testing. This test is used for clinical purposes. It should not be regarded as investigational or for research. Performed By: #### P OSACN ####[facility] LABCLIA [id number] [address] [place] XR KNEE 2V AP/LAT LTon 05-10 XR KNEE 2V AP/LAT LT * * *Final Report* * * DATE OF EXAM: May 10 2023 3:39PM FVX 5206 - XR KNEE 2V AP/LAT LT / PROCEDURE REASON: Closed nondisplaced transverse fracture of left patella, initial encounter * * * * Physician Interpretation * * * * TECHNIQUE: Left knee 2 views HISTORY: Fracture patella COMPARISON STUDY: None available. RESULT: There is a transverse lucency involving the midportion of the patella consistent with a fracture. There is a suprapatellar joint effusion. There is mild medial tibiofemoral narrowing. There is no dislocation. There is anterior soft tissue swelling. IMPRESSION: 1. Fractured patella and a suprapatellar joint effusion. Stamp Pad Maker: PSCB Transcribe Date/Time: May 11 2023 9:54A Dictated by : LASHAWN TRAMMELL MD This examination was interpreted and the report reviewed and electronically signed by: LASHAWN TRAMMELL MD on May 11 2023 9:55AM EST [id number] Normal [facility] MRI BRAIN WO/W IVCONon 05-09 MRI BRAIN WO/W IVCON Normal [facility] MRI CERVICAL SPINE WO/W IVCO Non 05-09-2023 MRI CERVICAL SPINE WO/W IVCON Normal [facility] MRI L-SPINE PREOP LOCAL W IV CONon 05-09-2023 MRI L-SPINE PREOP LOCAL W IVCON Normal [facility] MRI THORACIC SPINE WO/W IVCO Non 05-09-2023 MRI THORACIC SPINE WO/W IVCON Normal [facility] CNOVon 04-17-2023 CNOV Office Visit (ORFWHP ) CHIKIS TOBAR ([id number]) 1965 F Date Time Provider Department 04/17/23 10:00 AM AASHISH MONGE ORFP During your visit today, we recorded the following information about you: Aashish Monge PA-C 04/17/2023 10:53 AM Signed [facility] NOTE NEW PATIENT VISIT Name: Chikis Tobar April 17, 2023 This patient is being seen as a new patient. CHIEF COMPLAINT: Left knee pain Date of injury: 04/11/23 HISTORY OF PRESENT ILLNESS: Chikis Tobar is a 57 year old female who presents with left knee pain after a fall directly onto her left knee. 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 She has been going to PT and working on leg strength, her right leg is weaker than her left. She was down to using a cane for ambulation but since her fall she has gone back to using a walker. She was seen and evaluated in the ED at [place] where she was found to have a left transverse patella fracture. She has been weight bearing as tolerated in a knee immobilizer since the fall. Denies numbness or tingling. Social History: Tobacco Use: Never PATIENT HISTORIES: PAST MEDICAL HISTORY Diagnosis Date Asthma 02/16/2021 Bladder cancer (HCC) 02/2021 urothelial carcinoma Diabetes mellitus type 1 (HCC) 04/13/2021 diagnosed at age 6 HTN (hypertension) 02/16/2021 Neoplasm of bladder 02/16/2021 Obesity 02/16/2021 Palpitations 02/16/2021 PAST SURGICAL HISTORY Procedure Laterality Date CYSTECTOMY W/BI PELVIC LYMPHADENECTOMY 04/2021 CYSTO.PANENDO 05/25/2021 EXPLORATORY OF ABDOMEN 12/17/2021 Reduction of small-bowel volvulus PAST SURGICAL HISTORY OF right ovary removed PAST SURGICAL HISTORY OF ORIF right ankle PAST SURGICAL HISTORY OF 02/18/2021 TURBT REMOVAL OF BLADDER AND NODES VAGINAL HYSTERECTOMY metoprolol succinate ER (TOPROL XL) 100 mg Take 1 tablet by mouth every 12 hours 6am/6pm. posaconazole DR (NOXAFIL) 100 mg tablet Take 3 tablets by mouth once daily. insulin lispro (HUMALOG U-100 INSULIN) 100 unit/mL injection Inject 0-5 units subcutaneously at bedtime. <110 Give 0 units 111-150 Give 0 units 151-200 Give 1 unit 201-250 Give 2 units 251-300 Give 3 units 301-350 Give 4 units 351-400 Give 5 units >400 give 5units and notify provider. glucagon (BAQSIMI) 3 mg/actuation nasal spray Use 1 [place] in the nose as needed. acetaminophen (TYLENOL) 325 mg tablet Take 2 tablets by mouth every 6 hours as needed for pain. fexofenadine (ALESSIO) 180 mg tablet Take by mouth. PRN posaconazole DR (NOXAFIL) 100 mg tablet Posaconazole (Noxafil) 300 mg Susp,Delayed Release For Recon Active 300 MG PO Daily August 08, 2022 12:00am (Patient not taking: Reported on 04/17/2023) pantoprazole DR (PROTONIX) 40 mg tablet Take 1 tablet by mouth DAILY (6 AM). calcium carbonate (TUMS) 500 mg chew Take 1 tablet by mouth three times daily as needed. L.acid-L.casei-B.bif-B. mary beth-FOS (PROBIOTIC BLEND) 2 billion cell-50 mg cap Take 1 capsule by mouth once daily. (Patient not taking: Reported on 04/17/2023) ferrous sulfate 325 mg (65 mg iron) tablet Take 1 tablet by mouth every other day. (Patient not taking: Reported on 04/17/2023) [DISCONTINUED] lactobacillus rhamnosus (CULTURELLE) 10 billion cell capsule Take 1 capsule by mouth once daily. Allergies: ALLERGIES Allergen Reactions Demeral [Meperidine] GI Upset Nausea, pt states room spins Flexeril [Cyclobenz* Hives Versed [Midazolam] Mental Status Change Allergies, medications, past surgical history and past medical history were reviewed per this encounter. Patient reports no change in past medical AND surgical history, medications, allergies, social history, family history. I have confirmed and edited as necessary, the PFSH and ROS obtained by others. PHYSICAL EXAM: There were no vitals filed for this visit. General Appearance: Appears healthy, well-nourished Respiratory: Non-labored breathing Left Lower Extremity: Skin: Closed without ulcerations, lacerations, rashes or abrasions and Swelling minimal with wrinkles present Vascular: Foot warm with brisk warm capillary refill and Palpable DP/PT pulse Neuro: Sensation intact in saphenous/sural/deep peroneal/superficial peroneal/tibial nerve distribution Musculoskeletal: Tenderness to palpation over Knee and Ankle and range of motion deferred to knee, Able to SLR and hold leg in extension. Palpable effusion to knee Images: I have personally reviewed the images obtained left knee and discussed with patient, demonstrating left transverse patella fracture Xrays on disc that was uploaded into [facility] Assessment and Plan: 57 year old female with Left transverse patella fracture - Plan to treat this injury with Nonoperative treatment -Patient ab (more content not included)... Normal [facility] POSACONAZOLE, SERUMon 2022 Posaconazole [Mass/Vol] 3.7 ug/mL 0.7 - 3.9 ug/mL [facility] C-REACTIVE PROTEIN (CRP)on 1 05-20-2022 CRP [Mass/Vol] <0.9 mg/dL [facility] CBC W Auto Differential pane l (Bld)on 03-19-2023 Basophils (Bld) [#/Vol] 0.03 10*3/uL <0.11 k/uL [facility] Basophils/100 WBC (Bld) 0.7 % [facility] Differential cell count method Nom (Bld) Auto [facility] Eosinophils (Bld) [#/Vol] 0.08 10*3/uL <0.46 k/uL [facility] Eosinophils/100 WBC (Bld) 1.8 % [facility] Erythrocyte distribution width (RBC) [Ratio] 13.9 % 11.5 - 15.0 % [facility] Hematocrit (Bld) [Volume fraction] 38.4 % 36.0 - 46.0 % [facility] Hemoglobin (Bld) [Mass/Vol] 12.1 g/dL 11.5 - 15.5 g/dL [facility] Immature granulocytes (Bld) [#/Vol] <0.10 k/uL [facility] Immature granulocytes/100 WBC (Bld) 0.2 % [facility] Lymphocytes (Bld) [#/Vol] 1.03 10*3/uL 1.00 - 4.00 k/uL [facility] Lymphocytes/100 WBC (Bld) 23.1 % [facility] MCH (RBC) [Entitic mass] 29.4 pg 26.0 - 34.0 pg [facility] MCHC (RBC) [Mass/Vol] 31.5 g/dL 30.5 - 36.0 g/dL [facility] MCV (RBC) [Entitic vol] 93.2 fL 80.0 - 100.0 fL [facility] Monocytes (Bld) [#/Vol] 0.44 10*3/uL <0.87 k/uL [facility] Monocytes/100 WBC (Bld) 9.9 % [facility] Neutrophils (Bld) [#/Vol] 2.86 10*3/uL 1.45 - 7.50 k/uL [facility] Neutrophils/100 WBC (Bld) 64.3 % [facility] Nucleated RBC (Bld) [#/Vol] <0.01 k/uL [facility] Nucleated RBC/100 WBC (Bld) [Ratio] 0.0 /100 WBC [facility] Platelet mean volume (Bld) [Entitic vol] 10.0 fL 9.0 - 12.7 fL [facility] Platelets (Bld) [#/Vol] 325 10*3/uL 150 - 400 k/uL [facility] RBC (Bld) [#/Vol] 4.12 10*6/uL 3.90 - 5.2 0 m/uL [facility] WBC (Bld) [#/Vol] 4.45 10*3/uL 3.70 - 11.00 k/uL [facility] Basophils (Bld) [#/Vol] 0.03 10*3/uL Normal <0.11 [facility] Comment on above: Order Comment: Speci men Type: BLOOD SPECIMENOrdering Facility: [facility] Address: [address] [place] [address] Performed By: #### 4 537-7, 45158-2 ####[facility] LABCLIA [id number] [facility] [place] [address] [place] Basophils/100 WBC (Bld) 0.7 % Normal [facility] Comment on above: Order Comment: Speci men Type: BLOOD SPECIMENOrdering Facility: [facility] Address: [address] [place] [address] Performed By: #### 4 537-7, 98132-8 ####[facility] LABCLIA [id number] [place] [address] [place] Differential cell count method Nom (Bld) Auto Normal [facility] Comment on above: Order Comment: Speci men Type: BLOOD SPECIMENOrdering Facility: [facility] Address: [address] [place] [address] Performed By: #### 4 537-7, 16061-4 ####[facility] LABCLIA [id number] [place] [address] [place] Eosinophils (Bld) [#/Vol] 0.08 10*3/uL Normal <0.46 [facility] Comment on above: Order Comment: Speci men Type: BLOOD SPECIMENOrdering Facility: [facility] Address: [address] [place] [address] Performed By: #### 4 537-7, 71272-0 ####[facility] LABCLIA [id number] [place] [address] [place] Eosinophils/100 WBC (Bld) 1.8 % Normal [facility] Comment on above: Order Comment: Speci men Type: BLOOD SPECIMENOrdering Facility: [facility] Address: [address] [place] [address] Performed By: #### 4 537-7, 58034-9 ####[facility] LABCLIA [id number] [place] [address] [place] Erythrocyte distribution width (RBC) [Ratio] 13.9 % Normal 11.5-15.0 [facility] Comment on above: Order Comment: Speci men Type: BLOOD SPECIMENOrdering Facility: [facility] Address: [address] [place] [address] Performed By: #### 4 537-7, 88465-3 ####[facility] LABCLIA [id number] [place] [address] [place] Hematocrit (Bld) [Volume fraction] 38.4 % Normal 36.0-46.0 [facility] Comment on above: Order Comment: Speci men Type: BLOOD SPECIMENOrdering Facility: [facility] Address: [address] [place] [address] Performed By: #### 4 537-7, 33370-5 ####[facility] LABIA [id number] [place] [address] [place] Hemoglobin (Bld) [Mass/Vol] 12.1 g/dL Normal 11.5-15.5 [facility] Comment on above: Order Comment: Speci men Type: BLOOD SPECIMENOrdering Facility: [facility] Address: [address] [place] [address] Performed By: #### 4 537-7, 52703-2 ####[facility] LABCLIA [id number] [place] [id number] [place] Immature granulocytes (Bld) [#/Vol] 10*3/uL Normal <0.10 [facility] Comment on above: Order Comment: Speci men Type: BLOOD SPECIMENOrdering Facility: [facility] Address: [address] [place] [address] Performed By: #### 4 537-7, 35327-5 ####[facility] LABCLIA [id number] [place] [address] [place] Immature granulocytes/100 WBC (Bld) 0.2 % Normal [facility] Comment on above: Order Comment: Speci men Type: BLOOD SPECIMENOrdering Facility: [facility] Address: [address] [place] [address] Performed By: #### 4 537-7, 38298-8 ####[facility] LABCLIA [id number] [place] [address] [place] Lymphocytes (Bld) [#/Vol] 1.03 10*3/uL Normal 1.00-4.00 [facility] Comment on above: Order Comment: Speci men Type: BLOOD SPECIMENOrdering Facility: [facility] Address: [address] [place] [address] Performed By: #### 4 537-7, 69680-2 ####[facility] LABIA [id number] [place] [address] [place] Lymphocytes/100 WBC (Bld) 23.1 % Normal [facility] Comment on above: Order Comment: Speci men Type: BLOOD SPECIMENOrdering Facility: [facility] Address: [address] [place] [address] Performed By: #### 4 537-7, 26140-4 ####[facility] LABIA [id number] [place] [address] [place] MCH (RBC) [Entitic mass] 29.4 pg Normal 26.0-34.0 [facility] Comment on above: Order Comment: Speci men Type: BLOOD SPECIMENOrdering Facility: [facility] Address: [address] [place] [address] Performed By: #### 4 537-7, 37308-2 ####[facility] LABCLIA [id number] [place] [address] [place] MCHC (RBC) [Mass/Vol] 31.5 g/dL Normal 30.5-36.0 [facility] Comment on above: Order Comment: Speci men Type: BLOOD SPECIMENOrdering Facility: [facility] Address: [address] [place] [address] Performed By: #### 4 537-7, 90734-6 ####[facility] LABCLIA [id number] [place] [address] [place] MCV (RBC) [Entitic vol] 93.2 fL Normal 80.0-100.0 C [facility] Comment on above: Order Comment: Speci men Type: BLOOD SPECIMENOrdering Facility: [facility] Address: [address] [place] [address] Performed By: #### 4 537-7, 87383-1 ####[facility] LABCLIA [id number] [place] [address] [place] Monocytes (Bld) [#/Vol] 0.44 10*3/uL Normal <0.87 [facility] Comment on above: Order Comment: Speci men Type: BLOOD SPECIMENOrdering Facility: [facility] Address: [address] [place] [address] Performed By: #### 4 537-7, 01628-5 ####[facility] LABCLIA [id number] [place] [address] [place] Monocytes/100 WBC (Bld) 9.9 % Normal [facility] Comment on above: Order Comment: Speci men Type: BLOOD SPECIMENOrdering Facility: [facility] Address: [address] [place] [address] Performed By: #### 4 537-7, 60777-3 ####[facility] LABCLIA [id number] [place] [address] [place] Neutrophils (Bld) [#/Vol] 2.86 10*3/uL Normal 1.45-7.50 [facility] Comment on above: Order Comment: Speci men Type: BLOOD SPECIMENOrdering Facility: [facility] Address: [address] [place] [address] Performed By: #### 4 537-7, 41427-8 ####[facility] LABCLIA [id number] [place] [address] [place] Neutrophils/100 WBC (Bld) 64.3 % Normal [facility] Comment on above: Order Comment: Speci men Type: BLOOD SPECIMENOrdering Facility: [facility] Address: [address] [place] [address] Performed By: #### 4 537-7, 05988-8 ####[facility] LABIA [id number] [place] [address] [place] Nucleated RBC (Bld) [#/Vol] 10*3/uL Normal <0.01 [facility] Comment on above: Order Comment: Speci men Type: BLOOD SPECIMENOrdering Facility: [facility] Address: [address] [place] [address] Performed By: #### 4 537-7, 42318-0 ####[facility] LABIA [id number] [place] [address] [place] Nucleated RBC/100 WBC (Bld) [Ratio] 0.0 /100 WBC Normal [facility] Comment on above: Order Comment: Speci men Type: BLOOD SPECIMENOrdering Facility: [facility] Address: [address] [place] [address] Performed By: #### 4 537-7, 56201-0 ####[facility] LABIA [id number] [place] [address] [place] Platelet mean volume (Bld) [Entitic vol] 10.0 fL Normal 9.0-12.7 [facility] Comment on above: Order Comment: Speci men Type: BLOOD SPECIMENOrdering Facility: [facility] Address: [address] [place] [address] Performed By: #### 4 537-7, 95813-7 ####[facility] LABIA [id number] [address] [address] [place] Platelets (Bld) [#/Vol] 325 10*3/uL Normal 150-400 [facility] Comment on above: Order Comment: Speci men Type: BLOOD SPECIMENOrdering Facility: [facility] Address: [address] [place] [address] Performed By: #### 4 537-7, 95031-5 ####[facility] LABIA [id number] [place] [id number] [place] RBC (Bld) [#/Vol] 4.12 10*6/uL Normal 3.90-5.20 [facility] Comment on above: Order Comment: Speci men Type: BLOOD SPECIMENOrdering Facility: [facility] Address: [address] [place] [address] Performed By: #### 4 537-7, 92820-1 ####[facility] LABIA [id number] [place] [id number] [place] WBC (Bld) [#/Vol] 4.45 10*3/uL Normal 3.70-11.00 [facility] Comment on above: Order Comment: Speci men Type: BLOOD SPECIMENOrdering Facility: [facility] Address: [address] [place] [address] Performed By: #### 4 537-7, 13038-2 ####[facility] LABIA [id number] [place] [id number] [place] CNOVon 03-19-2023 CNOV Normal [facility] CRP SerPl-mCncon 03-19-2023 CRP [Mass/Vol] mg/L Normal <0.9 [facility] Comment on above: Order Comment: Speci men Type: BLOOD SPECIMENOrdering Facility: [facility] Address: [address] [place] [address] Performed By: #### 1 988-5, 68484-7 ####[facility] LABCLIA [id number] [facility] [id number] [address] [facility] Comprehensive metabolic 2000 panelon 03-19-2023 Albumin [Mass/Vol] 4.1 g/dL 3.9 - 4.9 g/dL [facility] ALP [Catalytic activity/Vol] 90 U/L 34 - 123 U/L [facility] ALT [Catalytic activity/Vol] 19 U/L 7 - 38 U/L [facility] Anion gap [Moles/Vol] 8 mmol/L Low 9 - 18 mmol/L [facility] AST [Catalytic activity/Vol] 19 U/L 13 - 35 U/L [facility] Bilirubin [Mass/Vol] 0.4 mg/dL 0.2 - 1 .3 mg/dL [facility] Calcium [Mass/Vol] 9.5 mg/dL 8.5 - 10. 2 mg/dL [facility] Chloride [Moles/Vol] 105 mmol/L 97 - 10 5 mmol/L [facility] CO2 [Moles/Vol] 29 mmol/L 22 - 30 mmol/L [facility] Creatinine [Mass/Vol] 0.64 mg/dL 0.58 - 0.96 mg/dL [facility] Estimated Glomerular Filtration Rate 104 mL/min/1.73m >=60 mL/min/1.73 m [facility] Glucose [Mass/Vol] 143 mg/dL High 74 - 99 mg/dL [facility] Potassium [Moles/Vol] 4.0 mmol/L 3.7 - 5.1 mmol/L [facility] Protein [Mass/Vol] 6.6 g/dL 6.3 - 8.0 g/dL [facility] Sodium [Moles/Vol] 142 mmol/L 136 - 144 mmol/L [facility] Urea nitrogen [Mass/Vol] 16 mg/dL 7 - 21 mg/dL [facility] Albumin [Mass/Vol] 4.1 g/dL Normal 3.9-4.9 [facility] Comment on above: Order Comment: Speci men Type: BLOOD SPECIMENOrdering Facility: [facility] Address: [address] [place] [id number] Performed By: #### 1 988-5, 70822-0 ####[facility] LABCLIA [id number] [place] [id number] [place] ALP [Catalytic activity/Vol] 90 U/L Normal 34-123 [facility] Comment on above: Order Comment: Speci men Type: BLOOD SPECIMENOrdering Facility: [facility] Address: [address] [place] [address] Performed By: #### 1 988-5, 23922-3 ####[facility] LABCLIA [id number] [place] [address] [place] ALT [Catalytic activity/Vol] 19 U/L Normal 7-38 [facility] Comment on above: Order Comment: Speci men Type: BLOOD SPECIMENOrdering Facility: [facility] Address: [address] [place] [address] Performed By: #### 1 988-5, 96892-2 ####[facility] LABCLIA [id number] [place] [address] [place] Anion gap [Moles/Vol] 8 mmol/L Low 9-18 [facility] Comment on above: Order Comment: Speci men Type: BLOOD SPECIMENOrdering Facility: [facility] Address: [address] [place] [address] Performed By: #### 1 988-5, 22198-7 ####[facility] LABCLIA [id number] [place] [address] [place] AST [Catalytic activity/Vol] 19 U/L Normal 13-35 [facility] Comment on above: Order Comment: Speci men Type: BLOOD SPECIMENOrdering Facility: [facility] Address: [address] [place] [address] Performed By: #### 1 988-5, 76624-9 ####[facility] LABCLIA [id number] [place] [id number] [place] Bilirubin [Mass/Vol] 0.4 mg/dL Normal 0.2-1.3 [facility] Comment on above: Order Comment: Speci men Type: BLOOD SPECIMENOrdering Facility: [facility] Address: [address] [place] [address] Performed By: #### 1 988-5, ####[facility] LABCLIA [id number] [address] [address] [place] Calcium [Mass/Vol] 9.5 mg/dL Normal 8.5-10.2 [facility] Comment on above: Order Comment: Speci men Type: BLOOD SPECIMENOrdering Facility: [facility] Address: [address] [place] [address] Performed By: #### 1 988-5, ####[facility] LABCLIA [id number] [place] [address] [place] Chloride [Moles/Vol] 105 mmol/L Normal 97-105 [facility] Comment on above: Order Comment: Speci men Type: BLOOD SPECIMENOrdering Facility: [facility] Address: [address] [place] [address] Performed By: #### 1 988-5, ####[facility] LABCLIA [id number] [place] [address] [place] CO2 [Moles/Vol] 29 mmol/L Normal 22-30 [facility] Comment on above: Order Comment: Speci men Type: BLOOD SPECIMENOrdering Facility: [facility] Address: [address] [place] [address] Performed By: #### 1 988-5, ####[facility] LABCLIA [id number] [place] [address] [place] Creatinine [Mass/Vol] 0.64 mg/dL Normal 0.58-0.96 [facility] Comment on above: Order Comment: Speci men Type: BLOOD SPECIMENOrdering Facility: [facility] Address: [address] [place] [address] Performed By: #### 1 988-5, 91471-8 ####[facility] LABCLIA [id number] [address] [place] Creatinine and Glomerular filtration rate.predicted panel (S/P/Bld) 104 mL/min/1.73m??? Normal >=60 [facility] Comment on above: Order Comment: [place] Type: BLOOD SPECIMENOrdering Facility: [facility] Address: [address] [place] [address] Result Comment: Maritza mated Glomerular Filtration Rate (eGFR) is calculated using the 2020 CKD-EPI creatinine equation. This equation utilizes serum creatinine, sex, and age as parameters. The creatinine assay has traceable calibration to isotope dilution-mass spectrometry. Refer to KDIGO guidelines for clinical interpretation. In patients with unstable renal function, e.g. those with acute kidney injury, the eGFR may not accurately reflect actual GFR. Performed By: #### 1 988-5, 84674-2 ####[facility] LABCLIA [id number] [place] [address] [place] Glucose [Mass/Vol] 143 mg/dL High 74-99 [facility] Comment on above: Order Comment: [place] Type: BLOOD SPECIMENOrdering Facility: [facility] Address: [address] [place] [address] Result Comment: The [place] [employer] (ADA) provides guidance for cutoff values for fasting glucose and random glucose. The ADA defines fasting as no caloric intake for at least 8 hours. Fasting plasma glucose results between 100 to 125 mg/dL indicate increased risk for diabetes (prediabetes).Fasting plasma glucose results greater than or equal to 126 mg/dL meet the criteria for diagnosis of diabetes. In the absence of unequivocal hyperglycemia, results should be confirmed by repeat testing. In a patient with classic symptoms of hyperglycemia or hyperglycemic crisis, random plasma glucose results greater than or equal to 200 mg/dL meet the criteria for diagnosis of diabetes.Reference: Standards of Medical Care in Diabetes 2016, [place] [employer]. Diabetes Care. 2016.39(Suppl 1). Performed By: #### 1 988-5, 18238-7 ####[facility] LABCLIA [id number] [place] [address] [place] Potassium [Moles/Vol] 4.0 mmol/L Normal 3.7-5.1 [facility] Comment on above: Order Comment: Speci men Type: BLOOD SPECIMENOrdering Facility: [facility] Address: [address] [place] [address] Performed By: #### 1 988-5, 33836-2 ####[facility] LABCLIA [id number] [place] [address] [place] Protein [Mass/Vol] 6.6 g/dL Normal 6.3-8.0 [facility] Comment on above: Order Comment: Speci men Type: BLOOD SPECIMENOrdering Facility: [facility] Address: [address] [place] [address] Performed By: #### 1 988-5, 71601-5 ####[facility] LABIA [id number] [place] [address] [place] Sodium [Moles/Vol] 142 mmol/L Normal 136-144 [facility] Comment on above: Order Comment: Speci men Type: BLOOD SPECIMENOrdering Facility: [facility] Address: [address] [place] [address] Performed By: #### 1 988-5, 85349-7 ####[facility] LABCLIA [id number] [place] [address] [place] Urea nitrogen [Mass/Vol] 16 mg/dL Normal 7-21 [facility] Comment on above: Order Comment: Speci men Type: BLOOD SPECIMENOrdering Facility: [facility] Address: [address] [place] [address] Performed By: #### 1 988-5, 77097-0 ####[facility] LABIA [id number] [place] [id number] [place] ESR Westergren method (Bld) [Velocity]on 12-04-2023 ESR (Bld) [Velocity] 8 mm/h 0 - 20 mm/hr [facility] ESR (Bld) [Velocity] 8 mm/h Normal 0-20 [facility] Comment on above: Order Comment: [place] Type: BLOOD SPECIMENOrdering Facility: [facility] Address: [address] [place] [address] Performed By: #### 4 537-7, 09661-7 ####[facility] LABCLIA [id number] [address] [facility] HbA1c (Bld)on 03-19-2023 Average glucose Estimated from glycated hemoglobin (Bld) [Mass/Vol] 166 mg/dL [facility] HbA1c (Bld) [Mass fraction] 7.4 % High 4.3 - 5.6 % [facility] Average glucose Estimated from glycated hemoglobin (Bld) [Mass/Vol] 166 mg/dL Normal [facility] Comment on above: Order Comment: Patrick hill Type: BLOOD SPECIMENOrdering Facility: [facility] Address: [address] [place] [address] Result Comment: eAG: (Estimated average glucose) is a calculated value from HgbA1c and is event sales representative of the average blood glucose level in the last 2-3 month period. Performed By: #### 5 5454-3 ####[facility] LABIA [id number] [address] [place] HbA1c (Bld) [Mass fraction] 7.4 % High 4.3-5.6 [facility] Comment on above: Order Comment: Patrick [facility] Type: BLOOD SPECIMENOrdering Facility: [facility] Address: [address] [place] [address] Result Comment: Amer [place] Diabetes Association guidelines indicate that patients with HgbA1c in the range 5.7-6.4% are at increased risk for development of diabetes, and intervention by lifestyle modification may be beneficial. HgbA1c greater or equal to 6.5% is considered diagnostic of diabetes. Performed By: #### 5 5454-3 ####[facility] LABCLIA [id number] [place] [id number] [place] POSACONAZOLE, SERUMon 2022 Posaconazole [Mass/Vol] 3.7 ug/mL Normal 0.7-3.9 C [facility] Comment on above: Order Comment: Speci men Type: BLOOD SPECIMENOrdering Facility: [facility] Address: [address] [place] [address] Result Comment: Rang es are based on trough draw at steady-state concentration.Therapeutic: >0.9 ug/mLProphylactic: >0.6 ug/mLToxic: >3.9 ug/mLThe therapeutic, prophylactic, and toxic ranges were based on the 2016 Infectious Disease Society of [place]'s (IDSA) Clinical Practice Guidelines for the Management of Aspergillosis and Candidiasis and consultation from [facility]'s Department of Infectious Disease.Reference ranges and high/low indicator flags are provided as general guidelines only. The treating physician must determine appropriate target levels/dosing based on the specific clinical situation.This test was developed and its performance characteristics determined by [facility]'s [facility] Pathology and Laboratory [facility] [place] ([facility]). It has not been cleared or approved by the FDA. -[facility] is regulated under CLIA as qualified to perform high-complexity testing. This test is used for clinical purposes. It should not be regarded as investigational or for research. Performed By: #### P OSACN ####[facility] LABCLIA [id number] [place] [address] [place] CBC W Auto Differential pane l (Bld)on 02-20-2023 Basophils (Bld) [#/Vol] 0.03 10*3/uL Normal <0.11 [facility] Comment on above: Order Comment: Speci men Type: BLOOD SPECIMENOrdering Facility: [facility] Address: [address] [place] [address] Performed By: #### 5 7021-8 ####[facility] [id number] [place] [address] Basophils/100 WBC (Bld) 0.6 % Normal C [facility] Comment on above: Order Comment: Speci men Type: BLOOD SPECIMENOrdering Facility: [facility] Address: [address] [place] [address] Performed By: #### 5 7021-8 ####[facility] [id number] [place] [address] Differential cell count method Nom (Bld) Auto Normal [facility] Comment on above: Order Comment: Speci men Type: BLOOD SPECIMENOrdering Facility: [facility] Address: [address] [place] [address] Performed By: #### 5 7021-8 ####[facility] [id number] [place] [address] Eosinophils (Bld) [#/Vol] 0.09 10*3/uL Normal <0.46 [facility] Comment on above: Order Comment: Speci men Type: BLOOD SPECIMENOrdering Facility: [facility] Address: [address] [place] [address] Performed By: #### 5 7021-8 ####[facility] [id number] [place] [address] Eosinophils/100 WBC (Bld) 1.8 % Normal [facility] Comment on above: Order Comment: Speci men Type: BLOOD SPECIMENOrdering Facility: [facility] Address: [address] [place] [address] Performed By: #### 5 7021-8 ####[facility] [id number] [place] [address] Erythrocyte distribution width (RBC) [Ratio] 14.4 % Normal 11.5-15.0 [facility] Comment on above: Order Comment: Speci men Type: BLOOD SPECIMENOrdering Facility: [facility] Address: [address] [place] [address] Performed By: #### 5 7021-8 ####[facility] [id number] [place] [address] Hematocrit (Bld) [Volume fraction] 42.1 % Normal 36.0-46.0 [facility] Comment on above: Order Comment: Speci men Type: BLOOD SPECIMENOrdering Facility: [facility] Address: [address] [place] [address] Performed By: #### 5 7021-8 ####[facility] [id number] [place] [address] Hemoglobin (Bld) [Mass/Vol] 13.7 g/dL Normal 11.5-15.5 [facility] Comment on above: Order Comment: Speci men Type: BLOOD SPECIMENOrdering Facility: [facility] Address: [address] [place] [address] Performed By: #### 5 7021-8 ####[facility] [id number] [place] [address] Immature granulocytes (Bld) [#/Vol] 10*3/uL Normal <0.10 [facility] Comment on above: Order Comment: Speci men Type: BLOOD SPECIMENOrdering Facility: [facility] Address: [address] [place] [address] Performed By: #### 5 7021-8 ####[facility] [id number] [place] [address] Immature granulocytes/100 WBC (Bld) 0.2 % Normal [facility] Comment on above: Order Comment: Speci men Type: BLOOD SPECIMENOrdering Facility: [facility] Address: [address] [place] [address] Performed By: #### 5 7021-8 ####[facility] [id number] [place] [address] Lymphocytes (Bld) [#/Vol] 1.08 10*3/uL Normal 1.00-4.00 [facility] Comment on above: Order Comment: Speci men Type: BLOOD SPECIMENOrdering Facility: [facility] Address: [address] [place] [address] Performed By: #### 5 7021-8 ####[facility] [id number] [place] [address] Lymphocytes/100 WBC (Bld) 21.4 % Normal [facility] Comment on above: Order Comment: Speci men Type: BLOOD SPECIMENOrdering Facility: [facility] Address: [address] [place] [address] Performed By: #### 5 7021-8 ####[facility] [id number] [place] [address] MCH (RBC) [Entitic mass] 29.3 pg Normal 26.0-34.0 [facility] Comment on above: Order Comment: Speci men Type: BLOOD SPECIMENOrdering Facility: [facility] Address: [address] [place] [address] Performed By: #### 5 7021-8 ####[facility] [id number] [place] [address] MCHC (RBC) [Mass/Vol] 32.5 g/dL Normal 30.5-36.0 [facility] Comment on above: Order Comment: Speci men Type: BLOOD SPECIMENOrdering Facility: [facility] Address: [address] [place] [address] Performed By: #### 5 7021-8 ####[facility] [id number] [place] [address] MCV (RBC) [Entitic vol] 90.1 fL Normal 80.0-100.0 C [facility] Comment on above: Order Comment: Speci men Type: BLOOD SPECIMENOrdering Facility: [facility] Address: [address] [place] [address] Performed By: #### 5 7021-8 ####[facility] [id number] [place] [address] Monocytes (Bld) [#/Vol] 0.49 10*3/uL Normal <0.87 [facility] Comment on above: Order Comment: Speci men Type: BLOOD SPECIMENOrdering Facility: [facility] Address: [address] [place] [address] Performed By: #### 5 7021-8 ####[facility] [id number] [place] [address] Monocytes/100 WBC (Bld) 9.7 % Normal [facility] Comment on above: Order Comment: Speci men Type: BLOOD SPECIMENOrdering Facility: [facility] Address: [address] [place] [address] Performed By: #### 5 7021-8 ####[facility] [id number] [place] [address] Neutrophils (Bld) [#/Vol] 3.34 10*3/uL Normal 1.45-7.50 [facility] Comment on above: Order Comment: Speci men Type: BLOOD SPECIMENOrdering Facility: [facility] Address: [address] [place] [address] Performed By: #### 5 7021-8 ####[facility] [id number] [place] [address] Neutrophils/100 WBC (Bld) 66.3 % Normal [facility] Comment on above: Order Comment: Speci men Type: BLOOD SPECIMENOrdering Facility: [facility] Address: [address] [place] [address] Performed By: #### 5 7021-8 ####[facility] [id number] [place] [address] Nucleated RBC (Bld) [#/Vol] 10*3/uL Normal <0.01 [facility] Comment on above: Order Comment: Speci men Type: BLOOD SPECIMENOrdering Facility: [facility] Address: [address] [place] [address] Performed By: #### 5 7021-8 ####[facility] [id number] [place] [address] Nucleated RBC/100 WBC (Bld) [Ratio] 0.0 /100 WBC Normal [facility] Comment on above: Order Comment: Speci men Type: BLOOD SPECIMENOrdering Facility: [facility] Address: [address] [place] [address] Performed By: #### 5 7021-8 ####[facility] [id number] [place] [address] Platelet mean volume (Bld) [Entitic vol] 9.4 fL Normal 9.0-12.7 [facility] Comment on above: Order Comment: Speci men Type: BLOOD SPECIMENOrdering Facility: [facility] Address: [address] [place] [address] Performed By: #### 5 7021-8 ####[facility] LABCLIA [id number] [place] [address] Platelets (Bld) [#/Vol] 315 10*3/uL Normal 150-400 [facility] Comment on above: Order Comment: Speci men Type: BLOOD SPECIMENOrdering Facility: [facility] Address: [address] [place] [address] Performed By: #### 5 7021-8 ####[facility] [id number] [place] [address] RBC (Bld) [#/Vol] 4.67 10*6/uL Normal 3.90-5.20 [facility] Comment on above: Order Comment: Speci men Type: BLOOD SPECIMENOrdering Facility: [facility] Address: [address] [place] [address] Performed By: #### 5 7021-8 ####[facility] [id number] [place] [address] WBC (Bld) [#/Vol] 5.04 10*3/uL Normal 3.70-11.00 [facility] Comment on above: Order Comment: Speci men Type: BLOOD SPECIMENOrdering Facility: [facility] Address: [address] [place] [address] Performed By: #### 5 7021-8 ####[facility]CL[facility] [id number] [place] [address] Comprehensive metabolic 2000 panelon 02-20-2023 Albumin [Mass/Vol] 4.5 g/dL Normal 3.9-4.9 [facility] Comment on above: Order Comment: Speci men Type: BLOOD SPECIMENOrdering Facility: [facility] Address: [address] [place] [address] Performed By: #### 2 4323-8 ####[facility] [id number] [place] [address] ALP [Catalytic activity/Vol] 99 U/L Normal 34-123 [facility] Comment on above: Order Comment: Speci men Type: BLOOD SPECIMENOrdering Facility: [facility] Address: [address] [place] [address] Performed By: #### 2 4323-8 ####[facility] [id number] [place] [address] ALT [Catalytic activity/Vol] 17 U/L Normal 7-38 [facility] Comment on above: Order Comment: Speci men Type: BLOOD SPECIMENOrdering Facility: [facility] Address: [address] [place] [address] Performed By: #### 2 4323-8 ####[facility] [id number] [place] [address] Anion gap [Moles/Vol] 9 mmol/L Normal 9-18 [facility] Comment on above: Order Comment: Speci men Type: BLOOD SPECIMENOrdering Facility: [facility] Address: [address] [place] [address] Performed By: #### 2 4323-8 ####[facility] [id number] [place] [address] AST [Catalytic activity/Vol] 14 U/L Normal 13-35 [facility] Comment on above: Order Comment: Speci men Type: BLOOD SPECIMENOrdering Facility: [facility] Address: [address] [place] [address] Performed By: #### 2 4323-8 ####[facility] [id number] [place] [address] Bilirubin [Mass/Vol] 0.5 mg/dL Normal 0.2-1.3 [facility] Comment on above: Order Comment: Speci men Type: BLOOD SPECIMENOrdering Facility: [facility] Address: [address] [place] [address] Performed By: #### 2 4323-8 ####[facility] [id number] [place] [address] Calcium [Mass/Vol] 9.4 mg/dL Normal 8.5-10.2 [facility] Comment on above: Order Comment: Speci men Type: BLOOD SPECIMENOrdering Facility: [facility] Address: [address] [place] [address] Performed By: #### 2 4323-8 ####[facility]CL[facility] [id number] [place] [address] Chloride [Moles/Vol] 104 mmol/L Normal 97-105 [facility] Comment on above: Order Comment: Speci men Type: BLOOD SPECIMENOrdering Facility: [facility] Address: [address] [place] [address] Performed By: #### 2 4323-8 ####[facility] [id number] [place] [address] CO2 [Moles/Vol] 27 mmol/L Normal 22-30 [facility] Comment on above: Order Comment: Speci men Type: BLOOD SPECIMENOrdering Facility: [facility] Address: [address] [place] [address] Performed By: #### 2 4323-8 ####[facility] [id number] [place] [address] Creatinine [Mass/Vol] 0.61 mg/dL Normal 0.58-0.96 [facility] Comment on above: Order Comment: Patrick hill Type: BLOOD SPECIMENOrdering Facility: [facility] Address: [address] [place] [address] Performed By: #### 2 4323-8 ####[facility] [id number] [place] [address] Creatinine and Glomerular filtration rate.predicted panel (S/P/Bld) 105 mL/min/1.73m??? Normal >=60 [facility] Comment on above: Order Comment: Patrick hill Type: BLOOD SPECIMENOrdering Facility: [facility] Address: [address] [place] [address] Result Comment: Maritza mated Glomerular Filtration Rate (eGFR) is calculated using the 2020 CKD-EPI creatinine equation. This equation utilizes serum creatinine, sex, and age as parameters. The creatinine assay has traceable calibration to isotope dilution-mass spectrometry. Refer to KDIGO guidelines for clinical interpretation. In patients with unstable renal function, e.g. those with acute kidney injury, the eGFR may not accurately reflect actual GFR. Performed By: #### 2 4323-8 ####[facility] [id number] [place] [address] Glucose [Mass/Vol] 209 mg/dL High 74-99 [facility] Comment on above: Order Comment: Patrick hill Type: BLOOD SPECIMENOrdering Facility: [facility] Address: [address] [place] [address] Result Comment: The [place] Diabetes Association (ADA) provides guidance for cutoff values for fasting glucose and random glucose. The ADA defines fasting as no caloric intake for at least 8 hours. Fasting plasma glucose results between 100 to 125 mg/dL indicate increased risk for diabetes (prediabetes).Fasting plasma glucose results greater than or equal to 126 mg/dL meet the criteria for diagnosis of diabetes. In the absence of unequivocal hyperglycemia, results should be confirmed by repeat testing. In a patient with classic symptoms of hyperglycemia or hyperglycemic crisis, random plasma glucose results greater than or equal to 200 mg/dL meet the criteria for diagnosis of diabetes.Reference: Standards of Medical Care in Diabetes 2016, [place] Diabetes Association. Diabetes Care. 2016.39(Suppl 1). Performed By: #### 2 4323-8 ####[facility] [id number] [place] [address] Potassium [Moles/Vol] 3.9 mmol/L Normal 3.7-5.1 [facility] Comment on above: Order Comment: Speci men Type: BLOOD SPECIMENOrdering Facility: [facility] Address: [address] [place] [address] Performed By: #### 2 4323-8 ####[facility] [id number] [place] [address] Protein [Mass/Vol] 6.8 g/dL Normal 6.3-8.0 [facility] Comment on above: Order Comment: Speci men Type: BLOOD SPECIMENOrdering Facility: [facility] Address: [address] [place] [address] Performed By: #### 2 4323-8 ####[facility] [id number] [place] [address] Sodium [Moles/Vol] 140 mmol/L Normal 136-144 [facility] Comment on above: Order Comment: Speci men Type: BLOOD SPECIMENOrdering Facility: [facility] Address: [address] [place] [address] Performed By: #### 2 4323-8 ####[facility] [id number] [place] [address] Urea nitrogen [Mass/Vol] 16 mg/dL Normal 7-21 [facility] Comment on above: Order Comment: Speci men Type: BLOOD SPECIMENOrdering Facility: [facility] Address: [address] [place] [address] Performed By: #### 2 4323-8 ####[facility] [id number] [place] [address] POSACONAZOLE, SERUMon 2022 Posaconazole [Mass/Vol] 3.1 ug/mL Normal 0.7-3.9 C [facility] Comment on above: Order Comment: Speci men Type: BLOOD SPECIMENOrdering Facility: [facility] Address: [address] [place] [id number] Result Comment: Rang es are based on trough draw at steady-state concentration.Therapeutic: >0.9 ug/mLProphylactic: >0.6 ug/mLToxic: >3.9 ug/mLThe therapeutic, prophylactic, and toxic ranges were based on the 2016 Infectious Disease Society of [place]'s (IDSA) Clinical Practice Guidelines for the Management of Aspergillosis and Candidiasis and consultation from [facility]'s Department of Infectious Disease.Reference ranges and high/low indicator flags are provided as general guidelines only. The treating physician must determine appropriate target levels/dosing based on the specific clinical situation.This test was developed and its performance characteristics determined by [facility] Laboratory [facility] [place] ([facility]). It has not been cleared or approved by the FDA. -[facility] is regulated under CLIA as qualified to perform high-complexity testing. This test is used for clinical purposes. It should not be regarded as investigational or for research. Performed By: #### P OSACN ####[facility] LABCLIA [id number] PATRICIABryan [facility] [id number] [place] [address] [place] CNOVon 01-15-2023 CNOV Normal [facility] CNPNon 01-10-2023 CNPN Telephone (MENAR) CHIKIS TOBAR ([id number]) 1965 F Date Time Provider Department 01/10/23 ZARINA NORTON During your visit today, we recorded the following information about you: Zarina Norton RN 01/10/2023 10:15 AM Signed Spoke with patient's medical supplier - [employer] ([phone]). They can only send 2 night time drainage bags per month due to patient's insurance coverage. Spoke with patient and relayed message to her. Offered options of this office will supply bags at her office visits if she needs them. Also aware that bags may be purchased on [employer]. Allergies As of Date: 01/10/2023 Noted Allergy Reaction DEMERAL (MEPERIDINE) 02/09/2021 8 - GI Upset Comments: Nausea, pt states room spins FLEXERIL (CYCLOBENZAPRINE) 02/09/2021 4 - Hives VERSED (MIDAZOLAM) 02/18/2021 1 - Mental Status Change Date Reviewed: 01/09/2023 Reviewed by: Nivia Oliver MA - Fully Assessed Reason for Visit: Urinary supply problem [Other] Prescriptions as of 03/07/2023 - metoprolol succinate ER (TOPROL XL) 100 mg Take 1 tablet by mouth every 12 hours 6am/6pm. - posaconazole DR (NOXAFIL) 100 mg tablet Take 3 tablets by mouth once daily. - pantoprazole DR (PROTONIX) 40 mg tablet Take 1 tablet by mouth DAILY (6 AM). - calcium carbonate (TUMS) 500 mg chew Take 1 tablet by mouth three times daily as needed. - insulin lispro (HUMALOG U-100 INSULIN) 100 unit/mL injection Inject 0-8 units subcutaneously 3 times daily before meals. Patient to carb count 1 unit per 9 g of carbs - insulin lispro (HUMALOG U-100 INSULIN) 100 unit/mL injection Inject 0-10 units subcutaneously 3 times daily before meals. Supplemental Sliding Scale: Humalog ?Program #2 AC If Blood Glucose (mg/dL) is <110 Give 0 units 111-150 Give 0 units 151-200 Give 2 unit 201-250 Give 4 units 251-300 Give 6 units 301-350 Give 8 units 351-400 Give 10 units >400 give 10units and notify provider. - insulin lispro (HUMALOG U-100 INSULIN) 100 unit/mL injection Inject 0-5 units subcutaneously at bedtime. <110 Give 0 units 111-150 Give 0 units 151-200 Give 1 unit 201-250 Give 2 units 251-300 Give 3 units 301-350 Give 4 units 351-400 Give 5 units >400 give 5units and notify provider. - glucagon (BAQSIMI) 3 mg/actuation nasal spray Use 1 [place] in the nose as needed. - acetaminophen (TYLENOL) 325 mg tablet Take 2 tablets by mouth every 6 hours as needed for pain. - L.acid-L.casei-B.bif-B. mary beth-FOS (PROBIOTIC BLEND) 2 billion cell-50 mg cap Take 1 capsule by mouth once daily. - fexofenadine (ALESSIO) 180 mg tablet Take by mouth. PRN - ferrous sulfate 325 mg (65 mg iron) tablet Take 1 tablet by mouth every other day. - lactobacillus rhamnosus (CULTURELLE) 10 billion cell capsule (Discontinued) Take 1 capsule by mouth once daily. Problem List As Of Date 01/10/2023 Noted Resolved Neoplasm of bladder [D49.4] 02/16/2021 Asthma [J45.909] 02/16/2021 HTN (hypertension) [I10] 02/16/2021 Palpitations [R00.2] 02/16/2021 Obesity [E66.9] 02/16/2021 06/11/2022 Type 1 diabetes mellitus with unspecified compl* Malignant neoplasm of urinary bladder (HCC) [C6*04/20/2021 Small bowel obstruction (HCC) [K56.609] 12/16/2021 12/21/2021 Severe protein-calorie malnutrition (HCC) [E43] 12/20/2021 Hypokalemia [E87.6] 12/21/2021 Hypophosphataemia [E83.39] 12/21/2021 Hyponatremia [E87.1] 01/05/2022 Hypomagnesemia [E83.42] 01/05/2022 Hydronephrosis [N13.30] 01/09/2022 Chronic low back pain without sciatica [M54.50,*03/13/2022 Lesion of lumbar spine [M89.9] 06/10/2022 Spinal cord mass (HCC) [G95.89] 06/15/2022 Unstageable pressure ulcer of sacral region (HC*06/16/2022 Encounter Status:Closed by ZARINA NORTON on 03/07/23 [facility] 01-09-2023 CNOV Office Visit (URFHR) AMADOUCHIKIS ([id number]) 1965 F Date Time Provider Department 01/09/23 10:20 AM PETERSON GONSALEZ URFHR During your visit today, we recorded the following information about you: Temperature Pulse Blood pressure Weight 97.9 degrees 71/minute 159/62 61.1 kg Peterson Gonsalez MD 01/09/2023 11:45 AM Signed [facility] ESTABLISHED PATIENT OFFICE VISIT REASON FOR VISIT: Follow up HPI 57 year old female presenting for follow-up of 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 History of volvulus s/p ex lap, reduction of volvulus, and right ureteral reimplantation 12/16/2021. She subsequently presented and was hospitalized with SBO and underwent ex lap, reduction of volvulus, and right ureteral reimplantation into ileal conduit with placement of a right ureteral stent (7Fr x 24cm JJ) 12/16/[address] Gong and myself. 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 Seen 05/02/2022 where she reported continued weight loss (105 lbs down from 195 prior to surgery). 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 Extensive work-up was performed, including multiple LPs, meningeal biopsy (positive for fungal hyphae), TYPEWRITER TESTER shunt placement with clinical improvement with this an antifungal therapy. CT A/P w/IV contrast 06/15/2022 - [facility] CT Chest 06/15/2022 - [facility]. Last seen by me 08/16/2022 where she reported doing very well since hospital discharge. She spent time in acute rehab after hospital discharge, after her first week she was able to walk 350 feet and was subsequently discharged home. She reports continued improvement in her functional capacity and ambulatory ability. CTU 12/25/2022 - New trace pelvic ascites. 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 Otherwise no evidence of intra-abdominal/pelvic metastases. CT Chest 12/25/2022 -Interval resolution of the previously noted centrilobular groundglass opacities. New patchy and streaky scarring/discoid atelectasis in the left lower lobe Today, she is up to ~130 pounds, was 98 at discharge from last hospitalization. Reports that her activity is improving and is working on balance and numbness in legs since last surgery. No difficulty keeping sugars under control since discharge. Is looking for ways to be more active. Regular bowel movements. PATHOLOGY: Ureter resection 12/17/2021: A. Ureter, right, segmental resection: - Segment of benign ureter with marked edema, acute inflammation, and epithelial denudation. Cystectomy 04/20/2021: FINAL DIAGNOSIS 1. Left distal ureter, excision (A): Ureter, negative for malignancy. 2. Right distal ureter, excision (B): Ureter, negative for malignancy. 3. Bladder, uterus, bilateral fallopian tubes, left ovary, anterior vaginal wall, anterior exenteration (C): -No residual tumor. -Prior biopsy site changes. -Cervix with mild chronic inflammation and nabothian cysts. -Inactive endometrium with adenomyosis. -Bilateral fallopian tubes and ovary, negative for malignancy. -Margins of resection are negative for malignancy. -See synoptic report. 4. Left distal ureter, excision (D): Ureter, negative for malignancy. 5. Right distal ureter margin, excision (E): Ureter, negative for malignancy. 6. Bilateral pelvic lymph nodes, excision (F): Seven lymph nodes, negative for malignancy (0/7). 7. Right common iliac lymph nodes, excision (G): One lymph node, negative for malignancy (0/1). LABS: Creatinine Date Value Ref Range Status 11/15/2022 0.59 0.58 - 0.96 mg/dL Final 08/21/2022 0.62 0.58 - 0.96 mg/dL Final 07/21/2022 0.43 (L) 0.58 - 0.96 mg/dL Final 07/20/2022 0.46 (L) 0.58 - 0.96 mg/dL Final URINALYSIS: pH, Arterial Date Value Ref Range Status 01/09/2022 7.40 7.35 - 7.45 Final Specific [place], Ur Date Value Ref Range Status 06/12/2022 1.010 1.005 - 1.030 Final Glucose, Urine Date Value Ref Range Status 06/12/2022 Negative Trace, Negative Final Bilirubin, Urine Date Value Ref Range Status 06/12/2022 Negative Negative Final Ketones, Urine Date Value Ref Range Status 06/12/2022 Negative Negative, Trace Final Hemoglobin/Blood,Ur Date Value Ref Range Status 06/12/2022 Trace Negative, Trace Final Protein, Urine Date Value Ref Range Status 06/12/2022 Negative Trace, Negative Final Nitrites Date Value Ref Range Status 06/12/2022 Negative Negative Final WBC, Urine Date Value Ref Range Status 06/12/2022 0-5 /HPF 0-5 /HPF Final IMAGING: CTU 04/25/2022 IMPRESSION: NO NEPHROLITHIASI (more content not included)... Normal [facility] CYTOLOGY NON-GYNon CASE REPORT Normal [facility] Comment on above: Order Comment: Speci men Type: FLUID SPECIMEN [facility] Address: [address] [place] [address] Result Comment: [facility] Cytology Report Case: [id number] Authorizing Provider: Peterson Gonsalez MD Collected: 01/09/2023 10:51 AM Ordering Location: Urology Received: 01/10/2023 07:17 AM Pathologist: Ida Ha MD Specimen: URINE VOIDED Performed By: #### C YTONON #### [facility] CLIA [id number] [place] [address] OF [facility] CLINICAL HISTORY history of bladder cancer Normal [facility] Comment on above: Order Comment: Speci men Type: FLUID SPECIMEN [facility] Address: [address] [place] [address] Performed By: #### C YTONON #### [facility] CLIA [id number] [address] [place] [address] [place] FINAL DIAGNOSIS Normal [facility] Comment on above: Order Comment: Speci men Type: FLUID SPECIMEN [facility] Address: [address] [place] [address] Result Comment: A - URINE VOIDED Negative for high-grade urothelial carcinoma. Performed By: #### C YTONON #### [facility] CLIA [id number] [address] [place] [address] OF [place] FINAL PERFORMING LAB Normal [facility] Comment on above: Order Comment: Speci men Type: FLUID SPECIMEN [facility]ing [facility] Address: [address] [place] [address] Result Comment: Tech nical component, rehabilitation consultant screening performed at [facility], [address] [place] [address] CLIA# [id number] Diagnostic interpretation performed at [facility], [address] [place] [address] CLIA# [id number] Laundry Worker: Aly Miranda M.D. Performed By: #### C YTONON #### [facility] CLIA [id number] [address] [place] [address] GROSS DESCRIPTION A. URINE VOIDED Normal [facility] Comment on above: Order Comment: Speci men Type: FLUID SPECIMEN [facility] Address: [address] [place] [address] Result Comment: 40 c c cloudy yoni fluid with particles. ThinPrep prepared. Performed By: #### C YTONON #### [facility] CLIA [id number] [address] [place] [address] [place] CT CHEST W IVCONon CT CHEST W IVCON Normal [facility] CT UROGRAM WO/W IVCONon 12-15 CT UROGRAM WO/W IVCON Normal [facility] CNOVon 12-14-2022 CNOV Normal [facility] CBC W Auto Differential pane l (Bld)on 11-15-2022 Basophils (Bld) [#/Vol] 10*3/uL Normal <0.11 C [facility] Comment on above: Order Comment: Speci men Type: BLOOD SPECIMENOrdering Facility: [facility] Address: [address] [place] [address] Performed By: #### 5 7021-8 ####[facility] [id number] [place] [address] Basophils/100 WBC (Bld) 0.5 % Normal C [facility] Comment on above: Order Comment: Speci men Type: BLOOD SPECIMENOrdering Facility: [facility] Address: [address] [place] [address] Performed By: #### 5 7021-8 ####[facility] [id number] [place] [address] Differential cell count method Nom (Bld) Auto Normal [facility] Comment on above: Order Comment: Speci men Type: BLOOD SPECIMENOrdering Facility: [facility] Address: [address] [place] [address] Performed By: #### 5 7021-8 ####[facility] [id number] [place] [address] Eosinophils (Bld) [#/Vol] 0.04 10*3/uL Normal <0.46 [facility] Comment on above: Order Comment: Speci men Type: BLOOD SPECIMENOrdering Facility: [facility] Address: [address] [place] [address] Performed By: #### 5 7021-8 ####[facility] [id number] [place] [address] Eosinophils/100 WBC (Bld) 1.0 % Normal [facility] Comment on above: Order Comment: Speci men Type: BLOOD SPECIMENOrdering Facility: [facility] Address: [address] [address] Performed By: #### 5 7021-8 ####[facility] [id number] [place] [address] Erythrocyte distribution width (RBC) [Ratio] 15.4 % High 11.5-15.0 [facility] Comment on above: Order Comment: Speci men Type: BLOOD SPECIMENOrdering Facility: [facility] Address: [address] [place] [address] Performed By: #### 5 7021-8 ####[facility] [id number] [place] [address] Hematocrit (Bld) [Volume fraction] 38.7 % Normal 36.0-46.0 [facility] Comment on above: Order Comment: Speci men Type: BLOOD SPECIMENOrdering Facility: [facility] Address: [address] [place] [address] Performed By: #### 5 7021-8 ####[facility] [id number] [place] [address] Hemoglobin (Bld) [Mass/Vol] 12.4 g/dL Normal 11.5-15.5 [facility] Comment on above: Order Comment: Speci men Type: BLOOD SPECIMENOrdering Facility: [facility] Address: [address] [place] [address] Performed By: #### 5 7021-8 ####[facility] [id number] [place] [address] Immature granulocytes (Bld) [#/Vol] 10*3/uL Normal <0.10 [facility] Comment on above: Order Comment: Speci men Type: BLOOD SPECIMENOrdering Facility: [facility] Address: [address] [place] [address] Performed By: #### 5 7021-8 ####[facility] [id number] [place] [address] Immature granulocytes/100 WBC (Bld) 0.2 % Normal [facility] Comment on above: Order Comment: Speci men Type: BLOOD SPECIMENOrdering Facility: [facility] Address: [address] [place] [address] Performed By: #### 5 7021-8 ####[facility] [id number] [place] [address] Lymphocytes (Bld) [#/Vol] 0.88 10*3/uL Low 1.00-4.00 [facility] Comment on above: Order Comment: Speci men Type: BLOOD SPECIMENOrdering Facility: [facility] Address: [address] [place] [address] Performed By: #### 5 7021-8 ####[facility] [id number] [place] [address] Lymphocytes/100 WBC (Bld) 21.5 % Normal [facility] Comment on above: Order Comment: Speci men Type: BLOOD SPECIMENOrdering Facility: [facility] Address: [address] [place] [address] Performed By: #### 5 7021-8 ####[facility] [id number] [place] [address] MCH (RBC) [Entitic mass] 28.7 pg Normal 26.0-34.0 [facility] Comment on above: Order Comment: Speci men Type: BLOOD SPECIMENOrdering Facility: [facility] Address: [address] [place] [address] Performed By: #### 5 7021-8 ####[facility] [id number] [place] [address] MCHC (RBC) [Mass/Vol] 32.0 g/dL Normal 30.5-36.0 [facility] Comment on above: Order Comment: Speci men Type: BLOOD SPECIMENOrdering Facility: [facility] Address: [address] [place] [address] Performed By: #### 5 7021-8 ####[facility] [id number] [place] [address] MCV (RBC) [Entitic vol] 89.6 fL Normal 80.0-100.0 C [facility] Comment on above: Order Comment: Speci men Type: BLOOD SPECIMENOrdering Facility: [facility] Address: [address] [place] [address] Performed By: #### 5 7021-8 ####[facility] [id number] [place] [address] Monocytes (Bld) [#/Vol] 0.35 10*3/uL Normal <0.87 [facility] Comment on above: Order Comment: Speci men Type: BLOOD SPECIMENOrdering Facility: [facility] Address: [address] [place] [address] Performed By: #### 5 7021-8 ####[facility] [id number] [place] [address] Monocytes/100 WBC (Bld) 8.6 % Normal C [facility] Comment on above: Order Comment: Speci men Type: BLOOD SPECIMENOrdering Facility: [facility] Address: [address] [place] [address] Performed By: #### 5 7021-8 ####[facility] [id number] [place] [address] Neutrophils (Bld) [#/Vol] 2.79 10*3/uL Normal 1.45-7.50 [facility] Comment on above: Order Comment: Speci men Type: BLOOD SPECIMENOrdering Facility: [facility] Address: [address] [place] [address] Performed By: #### 5 7021-8 ####[facility] [id number] [place] [address] Neutrophils/100 WBC (Bld) 68.2 % Normal [facility] Comment on above: Order Comment: Speci men Type: BLOOD SPECIMENOrdering Facility: [facility] Address: [address] [address] Performed By: #### 5 7021-8 ####[facility] [id number] [place] [address] Nucleated RBC (Bld) [#/Vol] 10*3/uL Normal <0.01 [facility] Comment on above: Order Comment: Speci men Type: BLOOD SPECIMENOrdering Facility: [facility] Address: [address] [address] Performed By: #### 5 7021-8 ####[facility] [id number] [place] [address] Nucleated RBC/100 WBC (Bld) [Ratio] 0.0 /100 WBC Normal [facility] Comment on above: Order Comment: Speci men Type: BLOOD SPECIMENOrdering Facility: [facility] Address: [address] [address] Performed By: #### 5 7021-8 ####[facility] [id number] [place] [address] Platelet mean volume (Bld) [Entitic vol] 10.1 fL Normal 9.0-12.7 [facility] Comment on above: Order Comment: Speci men Type: BLOOD SPECIMENOrdering Facility: [facility] Address: [address] Performed By: #### 5 7021-8 ####[facility] [id number] [place] [address] Platelets (Bld) [#/Vol] 256 10*3/uL Normal 150-400 [facility] Comment on above: Order Comment: Speci men Type: BLOOD SPECIMENOrdering Facility: [facility] Address: [address] [address] Performed By: #### 5 7021-8 ####[facility] [id number] [place] [address] RBC (Bld) [#/Vol] 4.32 10*6/uL Normal 3.90-5.20 [facility] Comment on above: Order Comment: Speci men Type: BLOOD SPECIMENOrdering Facility: [facility] Address: [address] [place] [address] Performed By: #### 5 7021-8 ####[facility] [id number] [place] [address] WBC (Bld) [#/Vol] 4.09 10*3/uL Normal 3.70-11.00 [facility] Comment on above: Order Comment: Speci men Type: BLOOD SPECIMENOrdering Facility: [facility] Address: [address] [place] [address] Performed By: #### 5 7021-8 ####[facility] [id number] [place] [address] CT BRAIN WO IVCONon 11-16-19 CT BRAIN WO IVCON Normal [facility] metabolic 2000 panelon 11-15-2022 Albumin [Mass/Vol] 4.2 g/dL Normal 3.9-4.9 [facility] Comment on above: Order Comment: Speci men Type: BLOOD SPECIMENOrdering Facility: [facility] Address: [address] [place] [address] Performed By: #### 2 4323-8 ####[facility] [id number] [place] [address] ALP [Catalytic activity/Vol] 93 U/L Normal 34-123 [facility] Comment on above: Order Comment: Speci men Type: BLOOD SPECIMENOrdering Facility: [facility] Address: [address] [place] [address] Performed By: #### 2 4323-8 ####[facility] [id number] [place] [address] ALT [Catalytic activity/Vol] 14 U/L Normal 7-38 [facility] Comment on above: Order Comment: Speci men Type: BLOOD SPECIMENOrdering Facility: [facility] Address: [address] [place] [address] Performed By: #### 2 4323-8 ####[facility] [id number] [place] [address] Anion gap [Moles/Vol] 9 mmol/L Normal 9-18 [facility] Comment on above: Order Comment: Speci men Type: BLOOD SPECIMENOrdering Facility: [facility] Address: [address] [place] [address] Performed By: #### 2 4323-8 ####[facility] [id number] [place] [address] AST [Catalytic activity/Vol] 14 U/L Normal 13-35 [facility] Comment on above: Order Comment: Speci men Type: BLOOD SPECIMENOrdering Facility: [facility] Address: [address] [place] [address] Performed By: #### 2 4323-8 ####[facility] [id number] [place] [address] Bilirubin [Mass/Vol] 0.4 mg/dL Normal 0.2-1.3 [facility] Comment on above: Order Comment: Speci men Type: BLOOD SPECIMENOrdering Facility: [facility] Address: [address] [address] Performed By: #### 2 4323-8 ####[facility] [id number] [place] [address] Calcium [Mass/Vol] 9.1 mg/dL Normal 8.5-10.2 [facility] Comment on above: Order Comment: Speci men Type: BLOOD SPECIMENOrdering Facility: [facility] Address: [address] [place] [address] Performed By: #### 2 4323-8 ####[facility] [id number] [place] [address] Chloride [Moles/Vol] 108 mmol/L High 97-105 [facility] Comment on above: Order Comment: Speci men Type: BLOOD SPECIMENOrdering Facility: [facility] Address: [address] [place] [address] Performed By: #### 2 4323-8 ####[facility] [id number] [place] [address] CO2 [Moles/Vol] 27 mmol/L Normal 22-30 [facility] Comment on above: Order Comment: Speci men Type: BLOOD SPECIMENOrdering Facility: [facility] Address: [address] [place] [address] Performed By: #### 2 4323-8 ####[facility] [id number] [place] [address] Creatinine [Mass/Vol] 0.59 mg/dL Normal 0.58-0.96 [facility] Comment on above: Order Comment: Speci men Type: BLOOD SPECIMENOrdering Facility: [facility] Address: [address] [place] [address] Performed By: #### 2 4323-8 ####[facility] [id number] [place] [address] ESTIMATED GLOMERULAR FILTRATION RATE 106 mL/min/1.73m??? Normal >=60 [facility] Comment on above: Order Comment: Speci men Type: BLOOD SPECIMENOrdering Facility: [facility] Address: [address] [place] [address] Result Comment: Maritza mated Glomerular Filtration Rate (eGFR) is calculated using the 2020 CKD-EPI creatinine equation. This equation utilizes serum creatinine, sex, and age as parameters. The creatinine assay has traceable calibration to isotope dilution-mass spectrometry. Refer to KDIGO guidelines for clinical interpretation. In patients with unstable renal function, e.g. those with acute kidney injury, the eGFR may not accurately reflect actual GFR. Performed By: #### 2 4323-8 ####[facility] [id number] [place] [address] Glucose [Mass/Vol] 137 mg/dL High 74-99 [facility] Comment on above: Order Comment: Speci men Type: BLOOD SPECIMENOrdering Facility: [facility] Address: [address] [address] Result Comment: The [place] Diabetes Association (ADA) provides guidance for cutoff values for fasting glucose and random glucose. The ADA defines fasting as no caloric intake for at least 8 hours. Fasting plasma glucose results between 100 to 125 mg/dL indicate increased risk for diabetes (prediabetes).Fasting plasma glucose results greater than or equal to 126 mg/dL meet the criteria for diagnosis of diabetes. In the absence of unequivocal hyperglycemia, results should be confirmed by repeat testing. In a patient with classic symptoms of hyperglycemia or hyperglycemic crisis, random plasma glucose results greater than or equal to 200 mg/dL meet the criteria for diagnosis of diabetes.Reference: Standards of Medical Care in Diabetes 2016, [place] [employer]. Diabetes Care. 2016.39(Suppl 1). Performed By: #### 2 4323-8 ####[facility] [id number] [place] [address] Potassium [Moles/Vol] 3.7 mmol/L Normal 3.7-5.1 [facility] Comment on above: Order Comment: Speci men Type: BLOOD SPECIMENOrdering Facility: [facility] Address: [address] [id number] Performed By: #### 2 4323-8 ####[facility] [id number] [place] [address] Protein [Mass/Vol] 6.4 g/dL Normal 6.3-8.0 [facility] Comment on above: Order Comment: Speci men Type: BLOOD SPECIMENOrdering Facility: [facility] Address: [address] [address] Performed By: #### 2 4323-8 ####[facility] [id number] [place] [address] Sodium [Moles/Vol] 144 mmol/L Normal 136-144 [facility] Comment on above: Order Comment: Speci men Type: BLOOD SPECIMENOrdering Facility: [facility] Address: [address] [place] [address] Performed By: #### 2 4323-8 ####[facility] [id number] [place] [address] Urea nitrogen [Mass/Vol] 12 mg/dL Normal 7-21 [facility] Comment on above: Order Comment: Speci men Type: BLOOD SPECIMENOrdering Facility: [facility] Address: [address] [place] [address] Performed By: #### 2 4323-8 ####[facility] [id number] [place] [address] POSACONAZOLE, SERUMon 2022 Posaconazole [Mass/Vol] 3.4 ug/mL Normal 0.7-3.9 C [facility] Comment on above: Order Comment: Speci men Type: BLOOD SPECIMENOrdering Facility: [facility] Address: [address] [place] [address] Result Comment: Rang es are based on trough draw at steady-state concentration.Therapeutic: >0.9 ug/mLProphylactic: >0.6 ug/mLToxic: >3.9 ug/mLThe therapeutic, prophylactic, and toxic ranges were based on the 2016 Infectious Disease Society of [place]'s (IDSA) Clinical Practice Guidelines for the Management of Aspergillosis and Candidiasis and consultation from [facility]'s Department of Infectious Disease.Reference ranges and high/low indicator flags are provided as general guidelines only. The treating physician must determine appropriate target levels/dosing based on the specific clinical situation.This test was developed and its performance characteristics determined by [facility]'s Katie JGiancarlo [facility] [place] ([facility]). It has not been cleared or approved by the FDA. [facility] is regulated under CLIA as qualified to perform high-complexity testing. This test is used for clinical purposes. It should not be regarded as investigational or for research. Performed By: #### P OSACN ####[facility] LABCLIA [id number] [place] [address] [place] CNOVon 10-18-2022 CNOV Normal [facility] ECH echo transthoracicon ECH echo transthoracic Normal [facility] CNOVon 09-21-2022 CNOV Normal [facility] CT BRAIN WO IVCONon 09-15-19 CT BRAIN WO IVCON [facility] CNOVon 08-25-2022 CNOV Normal [facility] CNPNon 08-23-2022 CNPN Normal [facility] CBC W Auto Differential pane l (Bld)on 08-21-2022 Basophils (Bld) [#/Vol] 0.03 10*3/uL Normal <0.11 [facility] Comment on above: Order Comment: Speci men Type: BLOOD SPECIMENOrdering Facility: [facility] Address: [address] [address] Performed By: #### 5 7021-8 ####[facility] LABIA [id number] [address] [place] Basophils/100 WBC (Bld) 0.5 % Normal C [facility] Comment on above: Order Comment: Speci men Type: BLOOD SPECIMENOrdering Facility: [facility] Address: [address] [address] Performed By: #### 5 7021-8 ####[facility]IA [id number] [place] [address] [place] Differential cell count method Nom (Bld) Auto Normal [facility] Comment on above: Order Comment: Speci men Type: BLOOD SPECIMENOrdering Facility: [facility] Address: [address] [address] Performed By: #### 5 7021-8 ####[facility]CLIA [id number] [place] [address] [place] Eosinophils (Bld) [#/Vol] 0.10 10*3/uL Normal <0.46 [facility] Comment on above: Order Comment: Speci men Type: BLOOD SPECIMENOrdering Facility: [facility] Address: [address] [place], [place] [id number] Performed By: #### 5 7021-8 ####[facility]CLIA [id number] [place] [address] [place] Eosinophils/100 WBC (Bld) 1.6 % Normal [facility] Comment on above: Order Comment: Speci men Type: BLOOD SPECIMENOrdering Facility: [facility] Address: [address] [place], [place] [id number] Performed By: #### 5 7021-8 ####[facility] LABCLIA [id number] [address] [place] Erythrocyte distribution width (RBC) [Ratio] 14.9 % Normal 11.5-15.0 [facility] Comment on above: Order Comment: Speci men Type: BLOOD SPECIMENOrdering Facility: [facility] Address: [address] [place], [place] [address] Performed By: #### 5 7021-8 ####[facility] LABCLIA [id number] [place] [address] [place] Hematocrit (Bld) [Volume fraction] 37.3 % Normal 36.0-46.0 [facility] Comment on above: Order Comment: Speci men Type: BLOOD SPECIMENOrdering Facility: [facility] Address: [address] [place], [place] [address] Performed By: #### 5 7021-8 ####[facility] LABCLIA [id number] [place] [address] [place] Hemoglobin (Bld) [Mass/Vol] 11.9 g/dL Normal 11.5-15.5 [facility] Comment on above: Order Comment: Speci men Type: BLOOD SPECIMENOrdering Facility: [facility] Address: [address] [place] [address] Performed By: #### 5 7021-8 ####[facility] LABCLIA [id number] [place] [address] [place] Immature granulocytes (Bld) [#/Vol] 10*3/uL Normal <0.10 [facility] Comment on above: Order Comment: Speci men Type: BLOOD SPECIMENOrdering Facility: [facility] Address: [address] [place] [address] Performed By: #### 5 7021-8 ####[facility] LABCLIA [id number] [place] [address] [place] Immature granulocytes/100 WBC (Bld) 0.3 % Normal [facility] Comment on above: Order Comment: Speci men Type: BLOOD SPECIMENOrdering Facility: [facility] Address: [address] [place], [place] [address] Performed By: #### 5 7021-8 ####[facility] LABCLIA [id number] [place] [address] [place] Lymphocytes (Bld) [#/Vol] 1.36 10*3/uL Normal 1.00-4.00 [facility] Comment on above: Order Comment: Speci men Type: BLOOD SPECIMENOrdering Facility: [facility] Address: [address] Performed By: #### 5 7021-8 ####[facility] LABCLIA [id number] [place] [address] [place] Lymphocytes/100 WBC (Bld) 21.9 % Normal [facility] Comment on above: Order Comment: Speci men Type: BLOOD SPECIMENOrdering Facility: [facility] Address: [address] Performed By: #### 5 7021-8 ####[facility] LABIA [id number] [address] MCH (RBC) [Entitic mass] 29.7 pg Normal 26.0-34.0 [facility] Comment on above: Order Comment: Speci men Type: BLOOD SPECIMENOrdering Facility: [facility] Address: [address] Performed By: #### 5 7021-8 ####[facility] LABIA [id number] [address] [place] MCHC (RBC) [Mass/Vol] 31.9 g/dL Normal 30.5-36.0 [facility] Comment on above: Order Comment: Speci men Type: BLOOD SPECIMENOrdering Facility: [facility] Address: [address] Performed By: #### 5 7021-8 ####[facility] LABIA [id number] [address] [place] MCV (RBC) [Entitic vol] 93.0 fL Normal 80.0-100.0 C [facility] Comment on above: Order Comment: Speci men Type: BLOOD SPECIMENOrdering Facility: [facility] Address: [address] Performed By: #### 5 7021-8 ####[facility] LABIA [id number] [place] [address] [place] Monocytes (Bld) [#/Vol] 0.54 10*3/uL Normal <0.87 [facility] Comment on above: Order Comment: Speci men Type: BLOOD SPECIMENOrdering Facility: [facility] Address: [address] Performed By: #### 5 7021-8 ####[facility] LABCLIA [id number] [place] [address] [place] Monocytes/100 WBC (Bld) 8.7 % Normal [facility] Comment on above: Order Comment: Speci men Type: BLOOD SPECIMENOrdering Facility: [facility] Address: [address] [place] [address] Performed By: #### 5 7021-8 ####[facility] LABCLIA [id number] [place] [address] [place] Neutrophils (Bld) [#/Vol] 4.15 10*3/uL Normal 1.45-7.50 [facility] Comment on above: Order Comment: Speci men Type: BLOOD SPECIMENOrdering Facility: [facility] Address: [address] [place] [address] Performed By: #### 5 7021-8 ####[facility] LABCLIA [id number] [address] [place] Neutrophils/100 WBC (Bld) 67.0 % Normal [facility] Comment on above: Order Comment: Speci men Type: BLOOD SPECIMENOrdering Facility: [facility] Address: [address] [place] [address] Performed By: #### 5 7021-8 ####[facility] LABCLIA [id number] [place] [address] [place] Nucleated RBC (Bld) [#/Vol] 10*3/uL Normal <0.01 [facility] Comment on above: Order Comment: Speci men Type: BLOOD SPECIMENOrdering Facility: [facility] Address: [address] [place], [place] [address] Performed By: #### 5 7021-8 ####[facility] LABCLIA [id number] [place] [address] [place] Nucleated RBC/100 WBC (Bld) [Ratio] 0.0 /100 WBC Normal [facility] Comment on above: Order Comment: Speci men Type: BLOOD SPECIMENOrdering Facility: [facility] Address: [address] [place] [address] Performed By: #### 5 7021-8 ####[facility] LABIA [id number] [place] [address] [place] Platelet mean volume (Bld) [Entitic vol] 10.0 fL Normal 9.0-12.7 [facility] Comment on above: Order Comment: Speci men Type: BLOOD SPECIMENOrdering Facility: [facility] Address: [address] [place] [address] Performed By: #### 5 7021-8 ####[facility] LABIA [id number] [place] [address] [place] Platelets (Bld) [#/Vol] 387 10*3/uL Normal 150-400 [facility] Comment on above: Order Comment: Speci men Type: BLOOD SPECIMENOrdering Facility: [facility] Address: [address] [place] [address] Performed By: #### 5 7021-8 ####[facility] LABIA [id number] [place] [address] [place] RBC (Bld) [#/Vol] 4.01 10*6/uL Normal 3.90-5.20 [facility] Comment on above: Order Comment: Speci men Type: BLOOD SPECIMENOrdering Facility: [facility] Address: [address] [place] [address] Performed By: #### 5 7021-8 ####[facility] LABIA [id number] [place] [address] [place] WBC (Bld) [#/Vol] 6.20 10*3/uL Normal 3.70-11.00 [facility] Comment on above: Order Comment: Speci men Type: BLOOD SPECIMENOrdering Facility: [facility] Address: [address] [place] [address] Performed By: #### 5 7021-8 ####[facility] LABCLIA [id number] [place] [address] [place] CNOVon 08-21-2022 CNOV Normal [facility] metabolic 2000 panelon 08-21-2022 Albumin [Mass/Vol] 4.4 g/dL Normal 3.9-4.9 [facility] Comment on above: Order Comment: Speci men Type: BLOOD SPECIMENOrdering Facility: [facility] Address: [address] Performed By: #### 2 4323-8 ####[facility] LABCLIA [id number] [place] [address] [place] ALP [Catalytic activity/Vol] 120 U/L Normal 34-123 [facility] Comment on above: Order Comment: Speci men Type: BLOOD SPECIMENOrdering Facility: [facility] Address: [address] Performed By: #### 2 4323-8 ####[facility] LABCLIA [id number] [place] [address] [place] ALT [Catalytic activity/Vol] 27 U/L Normal 7-38 [facility] Comment on above: Order Comment: Speci men Type: BLOOD SPECIMENOrdering Facility: [facility] Address: [address] Performed By: #### 2 4323-8 ####[facility] LABCLIA [id number] [place] [address] [place] Anion gap [Moles/Vol] 14 mmol/L Normal 9-18 [facility] Comment on above: Order Comment: Speci men Type: BLOOD SPECIMENOrdering Facility: [facility] Address: [address] Performed By: #### 2 4323-8 ####[facility] LABCLIA [id number] [place] [address] [place] AST [Catalytic activity/Vol] 19 U/L Normal 13-35 [facility] Comment on above: Order Comment: Speci men Type: BLOOD SPECIMENOrdering Facility: [facility] Address: [address] [place] [address] Performed By: #### 2 4323-8 ####[facility] LABCLIA [id number] [place] [address] [place] Bilirubin [Mass/Vol] 0.2 mg/dL Normal 0.2-1.3 [facility] Comment on above: Order Comment: Speci men Type: BLOOD SPECIMENOrdering Facility: [facility] Address: [address] [place] [address] Performed By: #### 2 4323-8 ####[facility] LABCLIA [id number] [place] [address] [place] Calcium [Mass/Vol] 9.8 mg/dL Normal 8.5-10.2 [facility] Comment on above: Order Comment: Speci men Type: BLOOD SPECIMENOrdering Facility: [facility] Address: [address] [place] [address] Performed By: #### 2 4323-8 ####[facility] LABCLIA [id number] [place] [address] [place] Chloride [Moles/Vol] 112 mmol/L High 97-105 [facility] Comment on above: Order Comment: Speci men Type: BLOOD SPECIMENOrdering Facility: [facility] Address: [address] [place] [address] Performed By: #### 2 4323-8 ####[facility] LABCLIA [id number] [place] [address] [place] CO2 [Moles/Vol] 21 mmol/L Low 22-30 [facility] Comment on above: Order Comment: Speci men Type: BLOOD SPECIMENOrdering Facility: [facility] Address: [address] [address] Performed By: #### 2 4323-8 ####[facility] [id number] [address] [place] Creatinine [Mass/Vol] 0.62 mg/dL Normal 0.58-0.96 [facility] Comment on above: Order Comment: Speci men Type: BLOOD SPECIMENOrdering Facility: [facility] Address: [address] [address] Performed By: #### 2 4323-8 ####[facility] [id number] [address] [place] OF [facility] ESTIMATED GLOMERULAR FILTRATION RATE 105 mL/min/1.73m??? Normal >=60 [facility] Comment on above: Order Comment: Speci men Type: BLOOD SPECIMENOrdering Facility: [facility] Address: [address] [address] Result Comment: Maritza mated Glomerular Filtration Rate (eGFR) is calculated using the 2020 CKD-EPI creatinine equation. This equation utilizes serum creatinine, sex, and age as parameters. The creatinine assay has traceable calibration to isotope dilution-mass spectrometry. Refer to KDIGO guidelines for clinical interpretation. In patients with unstable renal function, e.g. those with acute kidney injury, the eGFR may not accurately reflect actual GFR. Performed By: #### 2 4323-8 ####[facility] LABIA [id number] [place] [address] [place] Glucose [Mass/Vol] 102 mg/dL High 74-99 [facility] Comment on above: Order Comment: Speci men Type: BLOOD SPECIMENOrdering Facility: [facility] Address: [address] [place] [address] Result Comment: The [place] [employer] (ADA) provides guidance for cutoff values for fasting glucose and random glucose. The ADA defines fasting as no caloric intake for at least 8 hours. Fasting plasma glucose results between 100 to 125 mg/dL indicate increased risk for diabetes (prediabetes).Fasting plasma glucose results greater than or equal to 126 mg/dL meet the criteria for diagnosis of diabetes. In the absence of unequivocal hyperglycemia, results should be confirmed by repeat testing. In a patient with classic symptoms of hyperglycemia or hyperglycemic crisis, random plasma glucose results greater than or equal to 200 mg/dL meet the criteria for diagnosis of diabetes.Reference: Standards of Medical Care in Diabetes 2016, [place] [employer]. Diabetes Care. 2016.39(Suppl 1). Performed By: #### 2 4323-8 ####[facility] LABCLIA [id number] [place] [address] [place] Potassium [Moles/Vol] 4.2 mmol/L Normal 3.7-5.1 [facility] Comment on above: Order Comment: Speci men Type: BLOOD SPECIMENOrdering Facility: [facility] Address: [address] [place] [address] Performed By: #### 2 4323-8 ####[facility] LABIA [id number] [place] [address] [place] Protein [Mass/Vol] 7.2 g/dL Normal 6.3-8.0 [facility] Comment on above: Order Comment: Radamesi men Type: BLOOD SPECIMENOrdering Facility: [facility] Address: [address] [address] Performed By: #### 2 4323-8 ####[facility] LABIA [id number] [place] [address] [place] Sodium [Moles/Vol] 147 mmol/L High 136-144 [facility] Comment on above: Order Comment: Speci men Type: BLOOD SPECIMENOrdering Facility: [facility] Address: [address] [address] Performed By: #### 2 4323-8 ####[facility] LABCLIA [id number] [place] [address] [place] Urea nitrogen [Mass/Vol] 32 mg/dL High 7-21 [facility] Comment on above: Order Comment: Speci men Type: BLOOD SPECIMENOrdering Facility: [facility] Address: [address] [place] [id number] Performed By: #### 2 4323-8 ####[facility] LABCLIA [id number] [place] [address] [place] POSACONAZOLE, SERUMon 2022 Posaconazole [Mass/Vol] 2.4 ug/mL Normal 0.7-3.9 C [facility] Comment on above: Order Comment: Speci men Type: BLOOD SPECIMENOrdering Facility: [facility] Address: [place] [address] Result Comment: Rang es are based on trough draw at steady-state concentration.Therapeutic: >0.9 ug/mLProphylactic: >0.6 ug/mLToxic: >3.9 ug/mLThe therapeutic, prophylactic, and toxic ranges were based on the 2016 Infectious Disease Society of [place]'s (IDSA) Clinical Practice Guidelines for the Management of Aspergillosis and Candidiasis and consultation from [facility]'s Department of Infectious Disease.Reference ranges and high/low indicator flags are provided as general guidelines only. The treating physician must determine appropriate target levels/dosing based on the specific clinical situation.This test was developed and its performance characteristics determined by [facility]'s Katie Ulises [facility] Pathology [facility] [place] ([facility]). It has not been cleared or approved by the FDA. [facility] is regulated under CLIA as qualified to perform high-complexity testing. This test is used for clinical purposes. It should not be regarded as investigational or for research. Performed By: #### P OSACN ####[facility] LABCLIA [id number] [place] [address] [place] CNPNon 08-17-2022 CNPN Normal [facility] CT BRAIN WO IVCONon 08-17-19 CT BRAIN WO IVCON Normal [facility] POCT Glucoseon 08-01-2022 Glucose [Mass/Vol] 125 mg/dL Critically high 70-99 [facility] Comment on above: Performed By: #### P GLU #### [facility] [address] [place] [address] POC Performed on ACCU-CHEK Normal [facility] Comment on above: Performed By: #### P GLU #### [facility] [address] [place] [address] Glucose [Mass/Vol] 215 mg/dL Critically high 70-99 [facility] Comment on above: Performed By: #### P GLU #### [facility] [address] [place] [address] POC Performed on ACCU-CHEK Normal [facility] Comment on above: Performed By: #### P GLU #### [facility] [address] [place] [address] Glucose [Mass/Vol] 193 mg/dL Critically high -[address] [place] [address] Comment on above: Performed By: #### P GLU #### [facility] [address] [place] [address] POC Performed on ACCU-CHEK Normal [facility] Comment on above: Performed By: #### P GLU #### [facility] [address] [place] [address] Glucose [Mass/Vol] 206 mg/dL Critically high -[address] [place] [address] Comment on above: Performed By: #### P GLU #### [facility] [address] [place] [address] POC Performed on ACCU-CHEK Normal [facility] Comment on above: Performed By: #### P GLU #### [facility] [address] [place] [address] Basic Metabolic Panelon 07-15 Anion gap [Moles/Vol] 11 mmol/L Normal 9-15 [facility] Comment on above: Performed By: #### P GLU #### [facility] [address] [place] [address] Calcium [Mass/Vol] 8.9 mg/dL Normal 8.5-9.9 [facility] Comment on above: Performed By: #### P GLU #### [facility] [address] [place] [address] Chloride [Moles/Vol] 106 mmol/L Normal 95-107 [facility] Comment on above: Performed By: #### P GLU #### [facility] [address] [place] [address] CO2 [Moles/Vol] 24 mmol/L Normal 20-31 [facility] Comment on above: Performed By: #### P GLU #### [facility] [address] [place] [address] Creatinine [Mass/Vol] 0.42 mg/dL Low 0.50-0.90 [facility] Comment on above: Performed By: #### P GLU #### [facility] [address] [place] [address] GFR >60.0 Normal >60 [facility] Comment on above: Result Comment: Pedi atric calculator link [email or web address]://www.kidney.org/professionals/kdoqi/gfr_calculatorped Effective Jan 16, 2022 These results are not intended for use in patients <18 years of age. eGFR results are calculated without a race factor using the 2020 CKD-EPI equation. Careful clinical correlation is recommended, particularly when comparing to results calculated using previous equations. The CKD-EPI equation is less accurate in patients with extremes of muscle mass, extra-renal metabolism of creatinine, excessive creatinine ingestion, or following therapy that affects renal tubular secretion. Performed By: #### P GLU #### [facility] [address] [place] [address] Glucose [Mass/Vol] 191 mg/dL Critically high 70-99 [facility] Comment on above: Performed By: #### P GLU #### [facility] [address] [place] [address] Potassium [Moles/Vol] 4.2 mmol/L Normal 3.4-4.9 [facility] Comment on above: Performed By: #### P GLU #### [facility] [address] [place] [address] Sodium [Moles/Vol] 141 mmol/L Normal 135-144 [facility] Comment on above: Performed By: #### P GLU #### [facility] [address] [place] [address] Urea nitrogen [Mass/Vol] 24 mg/dL Critically high 6-20 [facility] Comment on above: Performed By: #### P GLU #### [facility] [address] [place] [address] CBC With Platelet and Differ entialon 07-31-2022 Basophils (Bld) [#/Vol] 0.1 10*3/uL Normal 0.0-0.2 [facility] Comment on above: Performed By: #### P GLU #### [facility] [address] [place] [address] Basophils/100 WBC (Bld) 1.1 % Normal [facility] Comment on above: Performed By: #### P GLU #### [facility] [address] [place] [address] Eosinophils (Bld) [#/Vol] 0.1 10*3/uL Normal 0.0-0.7 [facility] Comment on above: Performed By: #### P GLU #### [facility] [address] [place] [address] Eosinophils/100 WBC (Bld) 2.8 % Normal [facility] Comment on above: Performed By: #### P GLU #### [facility] [address] [place] [address] Erythrocyte distribution width (RBC) [Ratio] 15.3 % Critically high 11.5-14.5 [facility] Comment on above: Performed By: #### P GLU #### [facility] [address] [place] [address] Hematocrit (Bld) [Volume fraction] 31.3 % Low 37.0-47.0 [facility] Comment on above: Performed By: #### P GLU #### [facility] [address] [place] [address] Hemoglobin (Bld) [Mass/Vol] 10.2 g/dL Low 12.0-16.0 [facility] Comment on above: Performed By: #### P GLU #### [facility] [address] [place] [address] Lymphocytes (Bld) [#/Vol] 1.2 10*3/uL Normal 1.0-4.8 [facility] Comment on above: Performed By: #### P GLU #### [facility] [address] [place] [address] Lymphocytes/100 WBC (Bld) 25.6 % Normal [facility] Comment on above: Performed By: #### P GLU #### [facility] [address] [place] [address] MCH (RBC) [Entitic mass] 30.0 pg Normal 27.0-31.3 [facility] Comment on above: Performed By: #### P GLU #### [facility] [address] [place] [address] MCHC 32.6 % Low 33.0-37.0 [facility] Comment on above: Performed By: #### P GLU #### [facility] [address] [place] [address] MCV (RBC) [Entitic vol] 91.9 fL Normal 79.4-94.8 [facility] Comment on above: Performed By: #### P GLU #### [facility] [address] [place] [address] Monocytes (Bld) [#/Vol] 0.5 10*3/uL Normal 0.2-0.8 [facility] Comment on above: Performed By: #### P GLU #### [facility] [address] [place] [address] Monocytes/100 WBC (Bld) 10.6 % Normal [facility] Comment on above: Performed By: #### P GLU #### [facility] [address] [place] [address] Neutrophils (Bld) [#/Vol] 2.9 10*3/uL Normal 1.4-6.5 [facility] Comment on above: Performed By: #### P GLU #### [facility] [address] [place] [address] Neutrophils/100 WBC (Bld) 59.9 % Normal [facility] Comment on above: Performed By: #### P GLU #### [facility] [address] [place] [address] Platelets (Bld) [#/Vol] 452 10*3/uL Critically high 130-40 0 [facility] Comment on above: Performed By: #### P GLU #### [facility] [address] [place] [address] RBC (Bld) [#/Vol] 3.41 10*6/uL Low 4.20-5.40 [facility] Comment on above: Performed By: #### P GLU #### [facility] [address] [place] [address] WBC (Bld) [#/Vol] 4.8 10*3/uL Normal 4.8-10.8 [facility] Comment on above: Performed By: #### P GLU #### [facility] [address] [place] [address] High Sensitivity CRPon 07-31 High Sensitivity CRP 0.7 mg/L Normal 0.0-5.0 [facility] Comment on above: Performed By: #### P GLU #### [facility] [address] [place] [address] POCT Glucoseon 07-31-2022 Glucose [Mass/Vol] 192 mg/dL Critically high 70-99 [facility] Comment on above: Performed By: #### P GLU #### [facility] [address] [place] [address] POC Performed on ACCU-CHEK Normal [facility] Comment on above: Performed By: #### P GLU #### [facility] [address] [place] [address] Glucose [Mass/Vol] 102 mg/dL Critically high 70-99 [facility] Comment on above: Performed By: #### P GLU #### [facility] [address] [place] [address] POC Performed on ACCU-CHEK Normal [facility] Comment on above: Performed By: #### P GLU #### [facility] [address] [place] [address] Glucose [Mass/Vol] 139 mg/dL Critically high 70-99 [facility] Comment on above: Performed By: #### P GLU #### [facility] [address] [place] [address] POC Performed on ACCU-CHEK Normal [facility] Comment on above: Performed By: #### P GLU #### [facility] [address] [place] [address] Glucose [Mass/Vol] 195 mg/dL Critically high 70-99 [facility] Comment on above: Performed By: #### P GLU #### [facility] [address] [place] [address] POC Performed on ACCU-CHEK Normal [facility] Comment on above: Performed By: #### P GLU #### [facility] [address] [place] [address] Sedimentation Rateon 023 Sedimentation Rate 11 mm Normal 0-30 [facility] Comment on above: Performed By: #### P GLU #### [facility] [address] [place] [address] Uric Acidon 07-31-2022 Urate [Mass/Vol] 2.6 mg/dL Normal 2.4-5.7 [facility] Comment on above: Performed By: #### P GLU #### [facility] [address] [place] [address] POCT Glucoseon 07-30-2022 Glucose [Mass/Vol] 175 mg/dL Critically high 70-99 [facility] Comment on above: Performed By: #### P GLU #### [facility] [address] [place] [address] POC Performed on ACCU-CHEK Normal [facility] Comment on above: Performed By: #### P GLU #### [facility] [address] [place] [address] Glucose [Mass/Vol] 189 mg/dL Critically high 70-99 [facility] Comment on above: Performed By: #### P GLU #### [facility] [address] [place] [address] POC Performed on ACCU-CHEK Normal [facility] Comment on above: Performed By: #### P GLU #### [facility] [address] [place] [address] Glucose [Mass/Vol] 203 mg/dL Critically high 70-[address] [place] [address] Comment on above: Performed By: #### P GLU #### [facility] [address] [place] [address] POC Performed on ACCU-CHEK Normal [facility] Comment on above: Performed By: #### P GLU #### [facility] [address] [place] [address] Glucose [Mass/Vol] 246 mg/dL Critically high 70-99 [facility] Comment on above: Performed By: #### P GLU #### [facility] [address] [place] [address] POC Performed on ACCU-CHEK Normal [facility] Comment on above: Performed By: #### P GLU #### [facility] [address] [place] [address] Urinalysis, reflex to cultur mara 07-30-2022 Urine Reflexed to Culture Not Indicated Normal [facility] Comment on above: Performed By: #### P GLU #### [facility] [address] [place] [address] Bilirubin Ql (U) Negative Normal Negative [facility] Comment on above: Performed By: #### P GLU #### [facility] [address] [place] [address] Clarity (U) CLOUDY Abnormal Clear [facility] Comment on above: Performed By: #### P GLU #### [facility] [address] [place] [address] Color (U) Yellow Normal Straw/Dixie [facility] Comment on above: Performed By: #### P GLU #### [facility] [address] [place] [address] Glucose Ql (U) Negative Normal Negative [facility] Comment on above: Performed By: #### P GLU #### [facility] [address] [place] [address] Hemoglobin Ql (U) TRACE Abnormal Negative [facility] Comment on above: Performed By: #### P GLU #### [facility] [address] [place] [address] Ketones Ql (U) Negative Normal Negative [facility] Comment on above: Performed By: #### P GLU #### [facility] [address] [place] [address] Leukocyte esterase Test strip Ql (U) Negative Normal Negative [facility] Comment on above: Performed By: #### P GLU #### [facility] [address] [place] [address] Nitrite Ql (U) Negative Normal Negative [facility] Comment on above: Performed By: #### P GLU #### [facility] [address] [place] [address] pH (U) [pH] Normal 5.0-9.0 [facility] Comment on above: Performed By: #### P GLU #### [facility] [address] [place] [address] Protein Ql (U) Negative Normal Negative [facility] Comment on above: Performed By: #### P GLU #### [facility] [address] [place] [address] Specific gravity (U) [Rel density] 1.007 Normal 1.005-1.03 [facility] Comment on above: Performed By: #### P GLU #### [facility] [address] [place] [address] Urobilinogen Qn (U) 0.2 {Ancelmo'U}/dL Normal < 2.0 [facility] Comment on above: Performed By: #### P GLU #### [facility] [address] [place] [address] Urine Microscopicon 07-31-19 23 Crystals LM Nom (Urine sed) Few Triple Phos Abnormal None Seen [facility] Comment on above: Performed By: #### P GLU #### [facility] [address] [place] [address] Bacteria LM.HPF (Urine sed) [#/Area] Negative Normal Negative [facility] Comment on above: Performed By: #### P GLU #### [facility] [address] [place] [address] Urine Epithelial Cells Auto 3-5 Normal 0-5 [facility] Comment on above: Performed By: #### P GLU #### [facility] [address] [place] [address] Urine Hyaline Casts Auto 3-5 Normal 0-5 [facility] Comment on above: Performed By: #### P GLU #### [facility] [address] [place] [address] Urine RBC Auto 0-2 Normal 0-5 [facility] Comment on above: Performed By: #### P GLU #### [facility] [address] [place] [address] Urine WBC Auto 6-9 Abnormal 0-5 [facility] Comment on above: Performed By: #### P GLU #### [facility] [address] [place] [address] POCT Glucoseon 07-29-2022 Glucose [Mass/Vol] 167 mg/dL Critically high 70-99 [facility] Comment on above: Performed By: #### P GLU #### [facility] [address] [place] [address] POC Performed on ACCU-CHEK Normal [facility] Comment on above: Performed By: #### P GLU #### [facility] [address] [place] [address] Glucose [Mass/Vol] 135 mg/dL Critically high 70-99 [facility] Comment on above: Performed By: #### P GLU #### [facility] [address] [place] [address] POC Performed on ACCU-CHEK Normal [facility] Comment on above: Performed By: #### P GLU #### [facility] [address] [place] [address] Glucose [Mass/Vol] 194 mg/dL Critically high 70-99 [facility] Comment on above: Performed By: #### P GLU #### [facility] [address] [place] [address] POC Performed on ACCU-CHEK Normal [facility] Comment on above: Performed By: #### P GLU #### [facility] [address] [place] [address] Glucose [Mass/Vol] 258 mg/dL Critically high 70-99 [facility] Comment on above: Performed By: #### P GLU #### [facility] [address] [place] [address] POC Performed on ACCU-CHEK Normal [facility] Comment on above: Performed By: #### P GLU #### [facility] [address] [place] [address] POCT Glucoseon 07-28-2022 Glucose [Mass/Vol] 113 mg/dL Critically high 70-99 [facility] Comment on above: Performed By: #### P GLU #### [facility] [address] [place] [address] POC Performed on ACCU-CHEK Normal [facility] Comment on above: Performed By: #### P GLU #### [facility] [address] [place] [address] Glucose [Mass/Vol] 85 mg/dL Normal 70-99 [facility] Comment on above: Performed By: #### P GLU #### [facility] [address] [place] [address] POC Performed on ACCU-CHEK Normal [facility] Comment on above: Performed By: #### P GLU #### [facility] [address] [place] [address] Glucose [Mass/Vol] 116 mg/dL Critically high 70-99 [facility] Comment on above: Performed By: #### P GLU #### [facility] [address] [place] [address] POC Performed on ACCU-CHEK Normal [facility] Comment on above: Performed By: #### P GLU #### [facility] [address] [place] [address] Glucose [Mass/Vol] 270 mg/dL Critically high 70-99 [facility] Comment on above: Performed By: #### P GLU #### [facility] [address] [place] [address] POC Performed on ACCU-CHEK Normal [facility] Comment on above: Performed By: #### P GLU #### [facility] [address] [place] [address] Glucose [Mass/Vol] 118 mg/dL Critically high 70-99 [facility] Comment on above: Performed By: #### P GLU #### [facility] [address] [place] [address] POC Performed on ACCU-CHEK Normal [facility] Comment on above: Performed By: #### P GLU #### [facility] [address] [place] [address] Glucose [Mass/Vol] 55 mg/dL Low 70-99 [facility] Comment on above: Performed By: #### P GLU #### [facility] [address] [place] [address] POC Performed on ACCU-CHEK Normal [facility] Comment on above: Performed By: #### P GLU #### [facility] [address] [place] [address] Glucose [Mass/Vol] 54 mg/dL Low 70-99 [facility] Comment on above: Performed By: #### P GLU #### [facility] [address] [place] [address] POC Performed on ACCU-CHEK Normal [facility] Comment on above: Performed By: #### P GLU #### [facility] [address] [place] [address] CNPNon 07-27-2022 CNPN Normal [facility] POCT Glucoseon 07-27-2022 Glucose [Mass/Vol] 118 mg/dL Critically high 70-99 [facility] Comment on above: Performed By: #### P GLU #### [facility] [address] [place] [address] POC Performed on ACCU-CHEK Normal [facility] Comment on above: Performed By: #### P GLU #### [facility] [address] [place] [address] Glucose [Mass/Vol] 126 mg/dL Critically high 70-99 [facility] Comment on above: Performed By: #### P GLU #### [facility] [address] [place] [address] Glucose [Mass/Vol] 63 mg/dL Low 70-99 [facility] Comment on above: Performed By: #### P GLU #### [facility] [address] [place] [address] POC Performed on ACCU-CHEK Normal [facility] Comment on above: Performed By: #### P GLU #### [facility] [address] [place] [address] Glucose [Mass/Vol] 100 mg/dL Critically high 70-99 [facility] Comment on above: Performed By: #### P GLU #### [facility] [address] [place] [address] POC Performed on ACCU-CHEK Normal [facility] Comment on above: Performed By: #### P GLU #### [facility] [address] [place] [address] Glucose [Mass/Vol] 200 mg/dL Critically high 70-99 [facility] Comment on above: Performed By: #### P GLU #### [facility] [address] [place] [address] POC Performed on ACCU-CHEK Normal [facility] Comment on above: Performed By: #### P GLU #### [facility] [address] [place] [address] Glucose [Mass/Vol] 168 mg/dL Critically high 70-99 [facility] Comment on above: Performed By: #### P GLU #### [facility] [address] [place] [address] POC Performed on ACCU-CHEK Normal [facility] Comment on above: Performed By: #### P GLU #### [facility] [address] [place] [address] POCT Glucoseon 07-26-2022 Glucose [Mass/Vol] 144 mg/dL Critically high 70-99 [facility] Comment on above: Performed By: #### P GLU #### [facility] [address] [place] [address] POC Performed on ACCU-CHEK Normal [facility] Comment on above: Performed By: #### P GLU #### [facility] [address] [place] [address] Glucose [Mass/Vol] 256 mg/dL Critically high 70-99 [facility] Comment on above: Performed By: #### F RT4 #### [facility] [address] [place] [address] POC Performed on ACCU-CHEK Normal [facility] Comment on above: Performed By: #### F RT4 #### [facility] [address] [place] [address] Glucose [Mass/Vol] 348 mg/dL Critically high -[address] [place] [address] Comment on above: Performed By: #### F RT4 #### [facility] [address] [place] [address] POCT Glucoseon 07-25-2022 Glucose [Mass/Vol] 150 mg/dL Critically high -[address] [place] [address] Comment on above: Performed By: #### F RT4 #### [facility] [address] [place] [address] POC Performed on ACCU-CHEK Normal [facility] Comment on above: Performed By: #### F RT4 #### [facility] [address] [place] [address] Glucose [Mass/Vol] 174 mg/dL Critically high -[address] [place] [address] Comment on above: Performed By: #### P GLU #### [facility] [address] [place] [address] POC Performed on ACCU-CHEK Normal [facility] Comment on above: Performed By: #### P GLU #### [facility] [address] [place] [address] Glucose [Mass/Vol] 104 mg/dL Critically high 70-99 [facility] Comment on above: Performed By: #### F RT4 #### [facility] [address] [place] [address] POC Performed on ACCU-CHEK Normal [facility] Comment on above: Performed By: #### F RT4 #### [facility] [address] [place] [address] Glucose [Mass/Vol] 95 mg/dL Normal 70-99 [facility] Comment on above: Performed By: #### F RT4 #### [facility] [address] [place] [address] POC Performed on ACCU-CHEK Normal [facility] Comment on above: Performed By: #### F RT4 #### [facility] [address] [place] [address] POCT Glucoseon 07-24-2022 Glucose [Mass/Vol] 123 mg/dL Critically high 70-99 [facility] Comment on above: Performed By: #### F RT4 #### [facility] [address] [place] [address] POC Performed on ACCU-CHEK Normal [facility] Comment on above: Performed By: #### F RT4 #### [facility] [address] [place] [address] Glucose [Mass/Vol] 78 mg/dL Normal 70-99 [facility] Comment on above: Performed By: #### F RT4 #### [facility] [address] [place] [address] POC Performed on ACCU-CHEK Normal [facility] Comment on above: Performed By: #### F RT4 #### [facility] [address] [place] [address] Glucose [Mass/Vol] 122 mg/dL Critically high 70-99 [facility] Comment on above: Performed By: #### F RT4 #### [facility] [address] [place] [address] POC Performed on ACCU-CHEK Normal [facility] Comment on above: Performed By: #### F RT4 #### [facility] [address] [place] [address] Glucose [Mass/Vol] 88 mg/dL Normal 70-99 [facility] Comment on above: Performed By: #### P GLU #### [facility] [address] [place] [address] POC Performed on ACCU-CHEK Normal [facility] Comment on above: Performed By: #### P GLU #### [facility] [address] [place] [address] POCT Glucoseon 07-23-2022 Glucose [Mass/Vol] 248 mg/dL Critically high 70-99 [facility] Comment on above: Performed By: #### P GLU #### [facility] [address] [place] [address] POC Performed on ACCU-CHEK Normal [facility] Comment on above: Performed By: #### P GLU #### [facility] [address] [place] [address] Glucose [Mass/Vol] 144 mg/dL Critically high 70-99 [facility] Comment on above: Performed By: #### F RT4 #### [facility] [address] [place] [address] POC Performed on ACCU-CHEK Normal [facility] Comment on above: Performed By: #### F RT4 #### [facility] [address] [place] [address] Glucose [Mass/Vol] 157 mg/dL Critically high 70-99 [facility] Comment on above: Performed By: #### F RT4 #### [facility] [address] [place] [address] POC Performed on ACCU-CHEK Normal [facility] Comment on above: Performed By: #### F RT4 #### [facility] [address] [place] [address] Glucose [Mass/Vol] 193 mg/dL Critically high 70-99 [facility] Comment on above: Performed By: #### P GLU #### [facility] [address] [place] [address] POC Performed on ACCU-CHEK Normal [facility] Comment on above: Performed By: #### P GLU #### [facility] [address] [place] [address] B12/Folate Panelon Cobalamin (Vitamin B12) [Mass/Vol] 247 pg/mL Normal 232-1245 [facility] Folic Acid 7.0 ng/mL Normal >4.8 [facility] Comment on above: Result Comment: [facility] [address] [place] [address] Cortisolon 07-22-2022 Cortisol 10.9 ug/dL Normal 2.7-18.4 [facility] Comment on above: Result Comment: Cortisol Reference Range: AM 6.0-18.4 PM 2.7-10.5 Performed By: #### I MALGORZATA #### [facility] [address] [place] [address] POCT Glucoseon 07-22-2022 Glucose [Mass/Vol] 349 mg/dL Critically high 70-99 [facility] Comment on above: Performed By: #### P GLU #### [facility] [address] [place] [address] POC Performed on ACCU-CHEK Normal [facility] Comment on above: Performed By: #### P GLU #### [facility] [address] [place] [address] Glucose [Mass/Vol] 218 mg/dL Critically high 70-99 [facility] Comment on above: Performed By: #### P GLU #### [facility] [address] [place] [address] POC Performed on ACCU-CHEK Normal [facility] Comment on above: Performed By: #### P GLU #### [facility] [address] [place] [address] Glucose [Mass/Vol] 75 mg/dL Normal 70-99 [facility] Comment on above: Performed By: #### P GLU #### [facility] [address] [place] [address] POC Performed on ACCU-CHEK Normal [facility] Comment on above: Performed By: #### P GLU #### [facility] [address] [place] [address] Glucose [Mass/Vol] 105 mg/dL Critically high 70-99 [facility] Comment on above: Performed By: #### P GLU #### [facility] [address] [place] [address] POC Performed on ACCU-CHEK Normal [facility] Comment on above: Performed By: #### P GLU #### [facility] [address] [place] [address] Basic Metabolic Panelon 04-0 Anion gap [Moles/Vol] 8 mmol/L Low 9-15 [facility] Comment on above: Performed By: #### P GLU #### [facility] [address] [place] [address] Calcium [Mass/Vol] 9.0 mg/dL Normal 8.5-9.9 [facility] Comment on above: Performed By: #### P GLU #### [facility] [address] [place] [address] Chloride [Moles/Vol] 104 mmol/L Normal 95-107 [facility] Comment on above: Performed By: #### P GLU #### [facility] [address] [place] [address] CO2 [Moles/Vol] 31 mmol/L Normal 20-31 [facility] Comment on above: Performed By: #### P GLU #### [facility] [address] [place] [address] Creatinine [Mass/Vol] 0.40 mg/dL Low 0.50-0.90 [facility] Comment on above: Performed By: #### P GLU #### [facility] [address] [place] [address] GFR >60.0 Normal >60 [facility] Comment on above: Result Comment: Terrie phillipsc calculator link [email or web address].org/[email or web address]_[email or web address] Effective Jan 16, 2022 These results are not intended for use in patients <18 years of age. eGFR results are calculated without a race factor using the 2020 CKD-EPI equation. Careful clinical correlation is recommended, particularly when comparing to results calculated using previous equations. The CKD-EPI equation is less accurate in patients with extremes of muscle mass, extra-renal metabolism of creatinine, excessive creatinine ingestion, or following therapy that affects renal tubular secretion. Performed By: #### P GLU #### [facility] [address] [place] [address] Glucose [Mass/Vol] 288 mg/dL Critically high 70-99 [facility] Comment on above: Performed By: #### P GLU #### [facility] [address] [place] [address] Potassium [Moles/Vol] 4.5 mmol/L Normal 3.4-4.9 [facility] Comment on above: Performed By: #### P GLU #### [facility] [address] [place] [address] Sodium [Moles/Vol] 143 mmol/L Normal 135-144 [facility] Comment on above: Performed By: #### P GLU #### [facility] [address] [place] [address] Urea nitrogen [Mass/Vol] 19 mg/dL Normal 6-20 [facility] Comment on above: Performed By: #### P GLU #### [facility] [address] [place] [address] CASE MANAGEMon 07-21-2022 CASE MANAGEM Normal [facility] CBC panel Auto (Bld)on 07-21 Erythrocyte distribution width (RBC) [Ratio] 13.8 % Normal 11.5-15.0 [facility] Comment on above: Order Comment: Speci men Type: BLOOD SPECIMENOrdering Facility: [facility] Address: [address] [address] Performed By: #### 5 8410-2 ####[facility] LABIA [id number] [place] [address] [place] Hematocrit (Bld) [Volume fraction] 31.3 % Low 36.0-46.0 [facility] Comment on above: Order Comment: Speci men Type: BLOOD SPECIMENOrdering Facility: [facility] Address: [address] [address] Performed By: #### 5 8410-2 ####[facility] [id number] [address] [place] Hemoglobin (Bld) [Mass/Vol] 9.9 g/dL Low 11.5-15.5 [facility] Comment on above: Order Comment: Speci men Type: BLOOD SPECIMENOrdering Facility: [facility] Address: [address] Performed By: #### 5 8410-2 ####[facility] [id number] [address] [place] MCH (RBC) [Entitic mass] 29.7 pg Normal 26.0-34.0 [facility] Comment on above: Order Comment: Speci men Type: BLOOD SPECIMENOrdering Facility: [facility] Address: [address] Performed By: #### 5 8410-2 ####[facility] [id number] [address] [place] MCHC (RBC) [Mass/Vol] 31.6 g/dL Normal 30.5-36.0 [facility] Comment on above: Order Comment: Speci men Type: BLOOD SPECIMENOrdering Facility: [facility] Address: [address] Performed By: #### 5 8410-2 ####[facility] [id number] [place] [address] [place] MCV (RBC) [Entitic vol] 94.0 fL Normal 80.0-100.0 C [facility] Comment on above: Order Comment: Speci men Type: BLOOD SPECIMENOrdering Facility: [facility] Address: [address] [place], [place] [address] Performed By: #### 5 8410-2 ####[facility] [id number] [address] [place] Nucleated RBC (Bld) [#/Vol] 10*3/uL Normal <0.01 [facility] Comment on above: Order Comment: Speci men Type: BLOOD SPECIMENOrdering Facility: [facility] Address: [address] [place] [address] Performed By: #### 5 8410-2 ####[facility] [id number] [address] OF [facility] Platelet mean volume (Bld) [Entitic vol] 9.4 fL Normal 9.0-12.7 [facility] Comment on above: Order Comment: Speci men Type: BLOOD SPECIMENOrdering Facility: [facility] Address: [address] [place], [place] [address] Performed By: #### 5 8410-2 ####[facility] [id number] [place] [address] [place] Platelets (Bld) [#/Vol] 373 10*3/uL Normal 150-400 [facility] Comment on above: Order Comment: Speci men Type: BLOOD SPECIMENOrdering Facility: [facility] Address: [address] [place], [place] [address] Performed By: #### 5 8410-2 ####[facility] [id number] [place] [address] [place] RBC (Bld) [#/Vol] 3.33 10*6/uL Low 3.90-5.20 [facility] Comment on above: Order Comment: Speci men Type: BLOOD SPECIMENOrdering Facility: [facility] Address: [address] [place] [address] Performed By: #### 5 8410-2 ####[facility] LABCLIA [id number] [address] OF [facility] WBC (Bld) [#/Vol] 4.72 10*3/uL Normal 3.70-11.00 [facility] Comment on above: Order Comment: Speci men Type: BLOOD SPECIMENOrdering Facility: [facility] Address: [address] [place] [address] Performed By: #### 5 8410-2 ####[facility] LABCLIA [id number] [address] [place] CNDSon 07-21-2022 CNDS Normal [facility] CONSULT PROGon 07-21-2022 CONSULT PROG Normal [facility] Cortisolon 07-21-2022 Collection Info. Normal [facility] Comment on above: Performed By: #### I MALGORZATA #### [facility] [address] [place] [address] Hemoglobin A1con 07-21-2022 HbA1c (Bld) [Mass fraction] 8.3 % Critically high 4.8-5.9 [facility] Comment on above: Performed By: #### P GLU #### [facility] [address] [place] [address] POCT Glucoseon 07-21-2022 Glucose [Mass/Vol] 213 mg/dL Critically high 70-99 [facility] Comment on above: Performed By: #### P GLU #### [facility] [address] [place] [address] POC Performed on ACCU-CHEK Normal [facility] Comment on above: Performed By: #### P GLU #### [facility] [address] [place] [address] Glucose [Mass/Vol] 258 mg/dL Critically high 70-99 [facility] Comment on above: Performed By: #### P GLU #### [facility] [address] [place] [address] POC Performed on ACCU-CHEK Normal [facility] Comment on above: Performed By: #### P GLU #### [facility] [address] [place] [address] Renal function 2000 panelon 07-21-2022 Albumin [Mass/Vol] 3.3 g/dL Low 3.9-4.9 [facility] Comment on above: Order Comment: Speci men Type: BLOOD SPECIMENOrdering Facility: [facility] Address: [address] [place] [address] Performed By: #### 2 4362-6 ####[facility] LABCLIA [id number] [place] [address] [place] Anion gap [Moles/Vol] 7 mmol/L Low 9-18 [facility] Comment on above: Order Comment: Speci men Type: BLOOD SPECIMENOrdering Facility: [facility] Address: [address] [place] [address] Performed By: #### 2 4362-6 ####[facility] LABCLIA [id number] [place] [address] [place] Calcium [Mass/Vol] 8.6 mg/dL Normal 8.5-10.2 [facility] Comment on above: Order Comment: Speci men Type: BLOOD SPECIMENOrdering Facility: [facility] Address: [address] [address] Performed By: #### 2 4362-6 ####[facility] LABCLIA [id number] [place] [address] [place] Chloride [Moles/Vol] 102 mmol/L Normal 97-105 [facility] Comment on above: Order Comment: Speci men Type: BLOOD SPECIMENOrdering Facility: [facility] Address: [address] [address] Performed By: #### 2 4362-6 ####[facility] LABCLIA [id number] [place] [address] [place] CO2 [Moles/Vol] 30 mmol/L Normal 22-30 [facility] Comment on above: Order Comment: Speci men Type: BLOOD SPECIMENOrdering Facility: [facility] Address: [address] [address] Performed By: #### 2 4362-6 ####[facility] LABIA [id number] [address] OF [facility] Creatinine [Mass/Vol] 0.43 mg/dL Low 0.58-0.96 [facility] Comment on above: Order Comment: Speci men Type: BLOOD SPECIMENOrdering Facility: [facility] Address: [address] [place] [address] Performed By: #### 2 4362-6 ####[facility] LABIA [id number] [address] ESTIMATED GLOMERULAR FILTRATION RATE 114 mL/min/1.73m??? Normal >=60 [facility] Comment on above: Order Comment: Speci men Type: BLOOD SPECIMENOrdering Facility: [facility] Address: [address] [place] [address] Result Comment: Maritza mated Glomerular Filtration Rate (eGFR) is calculated using the 2020 CKD-EPI creatinine equation. This equation utilizes serum creatinine, sex, and age as parameters. The creatinine assay has traceable calibration to isotope dilution-mass spectrometry. Refer to KDIGO guidelines for clinical interpretation. In patients with unstable renal function, e.g. those with acute kidney injury, the eGFR may not accurately reflect actual GFR. Performed By: #### 2 4362-6 ####[facility] LABCLIA [id number] [place] [address] [place] Glucose [Mass/Vol] 156 mg/dL High 74-99 [facility] Comment on above: Order Comment: Speci men Type: BLOOD SPECIMENOrdering Facility: [facility] Address: [address] [place] [address] Result Comment: The [place] [employer] (ADA) provides guidance for cutoff values for fasting glucose and random glucose. The ADA defines fasting as no caloric intake for at least 8 hours. Fasting plasma glucose results between 100 to 125 mg/dL indicate increased risk for diabetes (prediabetes).Fasting plasma glucose results greater than or equal to 126 mg/dL meet the criteria for diagnosis of diabetes. In the absence of unequivocal hyperglycemia, results should be confirmed by repeat testing. In a patient with classic symptoms of hyperglycemia or hyperglycemic crisis, random plasma glucose results greater than or equal to 200 mg/dL meet the criteria for diagnosis of diabetes.Reference: Standards of Medical Care in Diabetes 2016, [place] [employer]. Diabetes Care. 2016.39(Suppl 1). Performed By: #### 2 4362-6 ####[facility] LABIA [id number] [place] [address] [place] Phosphate [Mass/Vol] 3.8 mg/dL Normal 2.7-4.8 [facility] Comment on above: Order Comment: Speci men Type: BLOOD SPECIMENOrdering Facility: [facility] Address: [address] [place] [address] Performed By: #### 2 4362-6 ####[facility] LABIA [id number] [place] [address] [place] Potassium [Moles/Vol] 4.0 mmol/L Normal 3.7-5.1 [facility] Comment on above: Order Comment: Speci men Type: BLOOD SPECIMENOrdering Facility: [facility] Address: [address] [place] [address] Performed By: #### 2 4362-6 ####[facility] LABIA [id number] [place] [address] [place] Sodium [Moles/Vol] 139 mmol/L Normal 136-144 [facility] Comment on above: Order Comment: Speci men Type: BLOOD SPECIMENOrdering Facility: [facility] Address: [address] [place] [address] Performed By: #### 2 4362-6 ####[facility] LABCLIA [id number] [place] [address] [place] Urea nitrogen [Mass/Vol] 20 mg/dL Normal 7-21 [facility] Comment on above: Order Comment: Speci men Type: BLOOD SPECIMENOrdering Facility: [facility] Address: [address] [place] [address] Performed By: #### 2 4362-6 ####[facility] LABCLIA [id number] [place] [address] [place] TSH w/Reflexon 07-21-2022 TSH w/Reflex 1.180 uIU/mL Normal 0.440-3.86 [facility] Comment on above: Performed By: #### P GLU #### [facility] [address] [place] [address] Thyroxine Freeon 07-21-2022 Thyroxine Free 1.08 ng/dL Normal 0.84-1.68 [facility] Comment on above: Performed By: #### F RT4 #### [facility] [address] [place] [address] CASE MANAGEMon 07-20-2022 CASE MANAGEM Normal [facility] CASE MANAGEM Normal [facility] CBC panel Auto (Bld)on 07-20 Erythrocyte distribution width (RBC) [Ratio] 13.8 % Normal 11.5-15.0 [facility] Comment on above: Order Comment: Speci men Type: BLOOD SPECIMENOrdering Facility: [facility] Address: [address] [place] [address] Performed By: #### 5 8410-2 ####[facility] LABCLIA [id number] [place] [address] [place] Hematocrit (Bld) [Volume fraction] 33.2 % Low 36.0-46.0 [facility] Comment on above: Order Comment: Speci men Type: BLOOD SPECIMENOrdering Facility: [facility] Address: [address] [place] [address] Performed By: #### 5 8410-2 ####[facility] [id number] [place] [address] [place] Hemoglobin (Bld) [Mass/Vol] 10.5 g/dL Low 11.5-15.5 [facility] Comment on above: Order Comment: Speci men Type: BLOOD SPECIMENOrdering Facility: [facility] Address: [address] [place] [address] Performed By: #### 5 8410-2 ####[facility] [id number] [address] [place] MCH (RBC) [Entitic mass] 30.1 pg Normal 26.0-34.0 [facility] Comment on above: Order Comment: Speci men Type: BLOOD SPECIMENOrdering Facility: [facility] Address: [address] [place] [address] Performed By: #### 5 8410-2 ####[facility] [id number] [place] [address] [place] MCHC (RBC) [Mass/Vol] 31.6 g/dL Normal 30.5-36.0 [facility] Comment on above: Order Comment: Speci men Type: BLOOD SPECIMENOrdering Facility: [facility] Address: [address] [place] [address] Performed By: #### 5 8410-2 ####[facility] [id number] [place] [address] [place] MCV (RBC) [Entitic vol] 95.1 fL Normal 80.0-100.0 C [facility] Comment on above: Order Comment: Speci men Type: BLOOD SPECIMENOrdering Facility: [facility] Address: [address] [place], [place] [address] Performed By: #### 5 8410-2 ####[facility] LABCLIA [id number] [place] [address] [place] Nucleated RBC (Bld) [#/Vol] 10*3/uL Normal <0.01 [facility] Comment on above: Order Comment: Speci men Type: BLOOD SPECIMENOrdering Facility: [facility] Address: [address] [place], [place] [address] Performed By: #### 5 8410-2 ####[facility] LABIA [id number] [place] [address] [place] Platelet mean volume (Bld) [Entitic vol] 9.2 fL Normal 9.0-12.7 [facility] Comment on above: Order Comment: Speci men Type: BLOOD SPECIMENOrdering Facility: [facility] Address: [address] [place], [place] [address] Performed By: #### 5 8410-2 ####[facility] LABIA [id number] [place] [address] [place] Platelets (Bld) [#/Vol] 405 10*3/uL High 150-400 [facility] Comment on above: Order Comment: Speci men Type: BLOOD SPECIMENOrdering Facility: [facility] Address: [address] [place], [place] [address] Performed By: #### 5 8410-2 ####[facility] LABIA [id number] [place] [address] [place] RBC (Bld) [#/Vol] 3.49 10*6/uL Low 3.90-5.20 [facility] Comment on above: Order Comment: Speci men Type: BLOOD SPECIMENOrdering Facility: [facility] Address: [address] Performed By: #### 5 8410-2 ####[facility] LABIA [id number] [place] [address] [place] WBC (Bld) [#/Vol] 4.79 10*3/uL Normal 3.70-11.00 [facility] Comment on above: Order Comment: Speci men Type: BLOOD SPECIMENOrdering Facility: [facility] Address: [address] Performed By: #### 5 8410-2 ####[facility] LABIA [id number] [place] [address] [place] CONSULT PROGon 07-20-2022 CONSULT PROG Normal [facility] Renal function 2000 panelon 07-20-2022 Albumin [Mass/Vol] 3.4 g/dL Low 3.9-4.9 [facility] Comment on above: Order Comment: Speci men Type: BLOOD SPECIMENOrdering Facility: [facility] Address: [address] [place] [address] Performed By: #### 2 4362-6 ####[facility] LABIA [id number] [place] [address] [place] Anion gap [Moles/Vol] 8 mmol/L Low 9-18 [facility] Comment on above: Order Comment: Speci men Type: BLOOD SPECIMENOrdering Facility: [facility] Address: [address] Performed By: #### 2 4362-6 ####[facility] LABIA [id number] [place] [address] [place] Calcium [Mass/Vol] 9.1 mg/dL Normal 8.5-10.2 [facility] Comment on above: Order Comment: Speci men Type: BLOOD SPECIMENOrdering Facility: [facility] Address: [address] [place], [place] [address] Performed By: #### 2 4362-6 ####[facility] LABCLIA [id number] [place] [address] [place] Chloride [Moles/Vol] 105 mmol/L Normal 97-105 [facility] Comment on above: Order Comment: Speci men Type: BLOOD SPECIMENOrdering Facility: [facility] Address: [address] [place] [address] Performed By: #### 2 4362-6 ####[facility] LABCLIA [id number] [place] [address] [place] CO2 [Moles/Vol] 28 mmol/L Normal 22-30 [facility] Comment on above: Order Comment: Speci men Type: BLOOD SPECIMENOrdering Facility: [facility] Address: [address] [place] [address] Performed By: #### 2 4362-6 ####[facility] LABCLIA [id number] [address] [place] Creatinine [Mass/Vol] 0.46 mg/dL Low 0.58-0.96 [facility] Comment on above: Order Comment: Speci men Type: BLOOD SPECIMENOrdering Facility: [facility] Address: [address] [place] [address] Performed By: #### 2 4362-6 ####[facility] LABIA [id number] [address] OF [facility] ESTIMATED GLOMERULAR FILTRATION RATE 112 mL/min/1.73m??? Normal >=60 [facility] Comment on above: Order Comment: Speci men Type: BLOOD SPECIMENOrdering Facility: [facility] Address: [address] [place] [address] Result Comment: Maritza mated Glomerular Filtration Rate (eGFR) is calculated using the 2020 CKD-EPI creatinine equation. This equation utilizes serum creatinine, sex, and age as parameters. The creatinine assay has traceable calibration to isotope dilution-mass spectrometry. Refer to KDIGO guidelines for clinical interpretation. In patients with unstable renal function, e.g. those with acute kidney injury, the eGFR may not accurately reflect actual GFR. Performed By: #### 2 4362-6 ####[facility] LABCLIA [id number] [address] [address] [place] Glucose [Mass/Vol] 84 mg/dL Normal 74-99 [facility] Comment on above: Order Comment: Speci men Type: BLOOD SPECIMENOrdering Facility: [facility] Address: [address] [id number] Result Comment: The [place] [employer] (ADA) provides guidance for cutoff values for fasting glucose and random glucose. The ADA defines fasting as no caloric intake for at least 8 hours. Fasting plasma glucose results between 100 to 125 mg/dL indicate increased risk for diabetes (prediabetes).Fasting plasma glucose results greater than or equal to 126 mg/dL meet the criteria for diagnosis of diabetes. In the absence of unequivocal hyperglycemia, results should be confirmed by repeat testing. In a patient with classic symptoms of hyperglycemia or hyperglycemic crisis, random plasma glucose results greater than or equal to 200 mg/dL meet the criteria for diagnosis of diabetes.Reference: Standards of Medical Care in Diabetes 2016, [place] [employer]. Diabetes Care. 2016.39(Suppl 1). Performed By: #### 2 4362-6 ####[facility] LABCLIA [id number] [place] [id number] [place] Phosphate [Mass/Vol] 3.2 mg/dL Normal 2.7-4.8 [facility] Comment on above: Order Comment: Speci men Type: BLOOD SPECIMENOrdering Facility: [facility] Address: [address] [place] [address] Performed By: #### 2 4362-6 ####[facility] LABIA [id number] [address] [address] [place] Potassium [Moles/Vol] 3.9 mmol/L Normal 3.7-5.1 [facility] Comment on above: Order Comment: Speci men Type: BLOOD SPECIMENOrdering Facility: [facility] Address: [address] Performed By: #### 2 4362-6 ####[facility] LABCLIA [id number] [place] [address] [place] Sodium [Moles/Vol] 141 mmol/L Normal 136-144 [facility] Comment on above: Order Comment: Speci men Type: BLOOD SPECIMENOrdering Facility: [facility] Address: [address] Performed By: #### 2 4362-6 ####[facility] LABCLIA [id number] [place] [address] [place] Urea nitrogen [Mass/Vol] 15 mg/dL Normal 7-21 [facility] Comment on above: Order Comment: Speci men Type: BLOOD SPECIMENOrdering Facility: [facility] Address: [address] Performed By: #### 2 4362-6 ####[facility] LABCLIA [id number] [place] [address] [place] THERAPY NTon 07-20-2022 THERAPY NT Normal [facility] US LEG VEIN DVT UNL VAS LABo n 07-20-2022 US LEG VEIN DVT UNL VAS LAB Normal [facility] CASE MANAGEMon 07-19-2022 CASE MANAGEM Normal [facility] CASE MANAGEM Normal [facility] CBC panel Auto (Bld)on 07-19 Erythrocyte distribution width (RBC) [Ratio] 13.7 % Normal 11.5-15.0 [facility] Comment on above: Order Comment: Speci men Type: BLOOD SPECIMENOrdering Facility: [facility] Address: [address] [place] [address] Performed By: #### 5 8410-2 ####[facility] LABCLIA [id number] [address] [place] Hematocrit (Bld) [Volume fraction] 32.4 % Low 36.0-46.0 [facility] Comment on above: Order Comment: Speci men Type: BLOOD SPECIMENOrdering Facility: [facility] Address: [address] [place] [address] Performed By: #### 5 8410-2 ####[facility] LABCLIA [id number] [address] STATES OF [facility] Hemoglobin (Bld) [Mass/Vol] 10.3 g/dL Low 11.5-15.5 [facility] Comment on above: Order Comment: Speci men Type: BLOOD SPECIMENOrdering Facility: [facility] Address: [address] [place] [address] Performed By: #### 5 8410-2 ####[facility] LABCLIA [id number] [address] [place] MCH (RBC) [Entitic mass] 30.0 pg Normal 26.0-34.0 [facility] Comment on above: Order Comment: Speci men Type: BLOOD SPECIMENOrdering Facility: [facility] Address: [address] [place] [address] Performed By: #### 5 8410-2 ####[facility] LABIA [id number] [address] [place] MCHC (RBC) [Mass/Vol] 31.8 g/dL Normal 30.5-36.0 [facility] Comment on above: Order Comment: Speci men Type: BLOOD SPECIMENOrdering Facility: [facility] Address: [address] [place] [address] Performed By: #### 5 8410-2 ####[facility] LABIA [id number] [address] [place] MCV (RBC) [Entitic vol] 94.5 fL Normal 80.0-100.0 C [facility] Comment on above: Order Comment: Speci men Type: BLOOD SPECIMENOrdering Facility: [facility] Address: [address] [place] [address] Performed By: #### 5 8410-2 ####[facility] LABIA [id number] [place] [address] [place] Nucleated RBC (Bld) [#/Vol] 10*3/uL Normal <0.01 [facility] Comment on above: Order Comment: Speci men Type: BLOOD SPECIMENOrdering Facility: [facility] Address: [address] Performed By: #### 5 8410-2 ####[facility] LABIA [id number] [place] [address] [place] Platelet mean volume (Bld) [Entitic vol] 9.4 fL Normal 9.0-12.7 [facility] Comment on above: Order Comment: Speci men Type: BLOOD SPECIMENOrdering Facility: [facility] Address: [address] Performed By: #### 5 8410-2 ####[facility] LABIA [id number] [place] [address] [place] Platelets (Bld) [#/Vol] 401 10*3/uL High 150-400 [facility] Comment on above: Order Comment: Speci men Type: BLOOD SPECIMENOrdering Facility: [facility] Address: [address] [place] [address] Performed By: #### 5 8410-2 ####[facility] LABIA [id number] [place] [address] [place] RBC (Bld) [#/Vol] 3.43 10*6/uL Low 3.90-5.20 [facility] Comment on above: Order Comment: Speci men Type: BLOOD SPECIMENOrdering Facility: [facility] Address: [address] [place] [address] Performed By: #### 5 8410-2 ####[facility] LABCLIA [id number] [place] [address] [place] WBC (Bld) [#/Vol] 4.47 10*3/uL Normal 3.70-11.00 [facility] Comment on above: Order Comment: Speci men Type: BLOOD SPECIMENOrdering Facility: [facility] Address: [address] [place] [address] Performed By: #### 5 8410-2 ####[facility] LABCLIA [id number] [place] [address] [place] CONSULT PROGon 07-19-2022 CONSULT PROG Normal [facility] Renal function 2000 panelon 07-19-2022 Albumin [Mass/Vol] 3.4 g/dL Low 3.9-4.9 [facility] Comment on above: Order Comment: Speci men Type: BLOOD SPECIMENOrdering Facility: [facility] Address: [address] Performed By: #### 2 4362-6 ####[facility] LABCLIA [id number] [place] [address] [place] Anion gap [Moles/Vol] 8 mmol/L Low 9-18 [facility] Comment on above: Order Comment: Speci men Type: BLOOD SPECIMENOrdering Facility: [facility] Address: [address] Performed By: #### 2 4362-6 ####[facility] LABCLIA [id number] [place] [address] [place] Calcium [Mass/Vol] 9.1 mg/dL Normal 8.5-10.2 [facility] Comment on above: Order Comment: Speci men Type: BLOOD SPECIMENOrdering Facility: [facility] Address: [address] Performed By: #### 2 4362-6 ####[facility] LABCLIA [id number] [place] [address] [place] Chloride [Moles/Vol] 104 mmol/L Normal 97-105 [facility] Comment on above: Order Comment: Speci men Type: BLOOD SPECIMENOrdering Facility: [facility] Address: [address] [place] [address] Performed By: #### 2 4362-6 ####[facility] LABIA [id number] [address] [place] CO2 [Moles/Vol] 27 mmol/L Normal 22-30 [facility] Comment on above: Order Comment: Speci men Type: BLOOD SPECIMENOrdering Facility: [facility] Address: [address] [place] [address] Performed By: #### 2 4362-6 ####[facility] LABIA [id number] [address] OF [facility] Creatinine [Mass/Vol] 0.47 mg/dL Low 0.58-0.96 [facility] Comment on above: Order Comment: Speci men Type: BLOOD SPECIMENOrdering Facility: [facility] Address: [address] [place] [address] Performed By: #### 2 4362-6 ####[facility] [id number] [address] OF [facility] ESTIMATED GLOMERULAR FILTRATION RATE 112 mL/min/1.73m??? Normal >=60 [facility] Comment on above: Order Comment: Speci men Type: BLOOD SPECIMENOrdering Facility: [facility] Address: [address] [place] [address] Result Comment: Maritza mated Glomerular Filtration Rate (eGFR) is calculated using the 2020 CKD-EPI creatinine equation. This equation utilizes serum creatinine, sex, and age as parameters. The creatinine assay has traceable calibration to isotope dilution-mass spectrometry. Refer to KDIGO guidelines for clinical interpretation. In patients with unstable renal function, e.g. those with acute kidney injury, the eGFR may not accurately reflect actual GFR. Performed By: #### 2 4362-6 ####[facility] LABCLIA [id number] [place] [address] [place] Glucose [Mass/Vol] 124 mg/dL High 74-99 [facility] Comment on above: Order Comment: Speci men Type: BLOOD SPECIMENOrdering Facility: [facility] Address: [address] [place] [address] Result Comment: The [place] [employer] (ADA) provides guidance for cutoff values for fasting glucose and random glucose. The ADA defines fasting as no caloric intake for at least 8 hours. Fasting plasma glucose results between 100 to 125 mg/dL indicate increased risk for diabetes (prediabetes).Fasting plasma glucose results greater than or equal to 126 mg/dL meet the criteria for diagnosis of diabetes. In the absence of unequivocal hyperglycemia, results should be confirmed by repeat testing. In a patient with classic symptoms of hyperglycemia or hyperglycemic crisis, random plasma glucose results greater than or equal to 200 mg/dL meet the criteria for diagnosis of diabetes.Reference: Standards of Medical Care in Diabetes 2016, [place] [employer]. Diabetes Care. 2016.39(Suppl 1). Performed By: #### 2 4362-6 ####[facility] LABIA [id number] [place] [address] [place] Phosphate [Mass/Vol] 3.0 mg/dL Normal 2.7-4.8 [facility] Comment on above: Order Comment: Speci men Type: BLOOD SPECIMENOrdering Facility: [facility] Address: [address] [address] Performed By: #### 2 4362-6 ####[facility] LABIA [id number] [place] [address] [place] Potassium [Moles/Vol] 3.6 mmol/L Low 3.7-5.1 [facility] [facility] Comment on above: Order Comment: Speci men Type: BLOOD SPECIMENOrdering Facility: [facility] Address: [address] [address] Performed By: #### 2 4362-6 ####[facility] LABIA [id number] [place] [address] [place] Sodium [Moles/Vol] 139 mmol/L Normal 136-144 [facility] Comment on above: Order Comment: Speci men Type: BLOOD SPECIMENOrdering Facility: [facility] Address: [address] [place] [address] Performed By: #### 2 4362-6 ####[facility] LABIA [id number] [place] [address] [place] Urea nitrogen [Mass/Vol] 14 mg/dL Normal 7-21 [facility] Comment on above: Order Comment: Speci men Type: BLOOD SPECIMENOrdering Facility: [facility] Address: [address] [place] [address] Performed By: #### 2 4362-6 ####[facility] [id number] [place] [address] [place] SARS-CoV-2 RNA Resp Ql LOUISE+p robeon 07-19-2022 SARS-CoV-2 (COVID-19) RNA LOUISE+probe Ql (Resp) COVID 19 RESULT: Not detected The method used is RT-PCR or an equivalent NAAT method. Reference Range(the expected result in uninfected individuals): Not detected Normal [facility] Comment on above: Performed By: #### 9 4500-6 ####[facility] [id number] [place] [address] [place] THERAPY NTon 07-19-2022 THERAPY NT Normal [facility] ALLIED HEALTHon 07-18-2022 ALLIED HEALTH Normal [facility] ALLIED HEALTH Normal [facility] CASE MANAGEMon 07-18-2022 CASE MANAGEM Normal [facility] CBC panel Auto (Bld)on 07-18 Erythrocyte distribution width (RBC) [Ratio] 13.7 % Normal 11.5-15.0 [facility] Comment on above: Order Comment: Speci men Type: BLOOD SPECIMENOrdering Facility: [facility] Address: [address] [address] Performed By: #### 5 8410-2 ####[facility] LABCLIA [id number] [place] [address] [place] Hematocrit (Bld) [Volume fraction] 33.1 % Low 36.0-46.0 [facility] Comment on above: Order Comment: Speci men Type: BLOOD SPECIMENOrdering Facility: [facility] Address: [address] [address] Performed By: #### 5 8410-2 ####[facility] LABIA [id number] [address] [place] Hemoglobin (Bld) [Mass/Vol] 10.7 g/dL Low 11.5-15.5 [facility] Comment on above: Order Comment: Speci men Type: BLOOD SPECIMENOrdering Facility: [facility] Address: [address] [address] Performed By: #### 5 8410-2 ####[facility] LABIA [id number] [address] [place] MCH (RBC) [Entitic mass] 30.2 pg Normal 26.0-34.0 [facility] Comment on above: Order Comment: Speci men Type: BLOOD SPECIMENOrdering Facility: [facility] Address: [address] Performed By: #### 5 8410-2 ####[facility] LABIA [id number] [place] [address] [place] MCHC (RBC) [Mass/Vol] 32.3 g/dL Normal 30.5-36.0 [facility] Comment on above: Order Comment: Speci men Type: BLOOD SPECIMENOrdering Facility: [facility] Address: [address] Performed By: #### 5 8410-2 ####[facility] LABIA [id number] [address] STATES [place] [facility] MCV (RBC) [Entitic vol] 93.5 fL Normal 80.0-100.0 C [facility] Comment on above: Order Comment: Speci men Type: BLOOD SPECIMENOrdering Facility: [facility] Address: [address] [place] [address] Performed By: #### 5 8410-2 ####[facility] LABIA [id number] [address] [place] Nucleated RBC (Bld) [#/Vol] 10*3/uL Normal <0.01 [facility] Comment on above: Order Comment: Speci men Type: BLOOD SPECIMENOrdering Facility: [facility] Address: [address] [place] [address] Performed By: #### 5 8410-2 ####[facility] [id number] [address] [place] Platelet mean volume (Bld) [Entitic vol] 9.3 fL Normal 9.0-12.7 [facility] Comment on above: Order Comment: Speci men Type: BLOOD SPECIMENOrdering Facility: [facility] Address: [address] [place] [address] Performed By: #### 5 8410-2 ####[facility] LABIA [id number] [place] [address] [place] Platelets (Bld) [#/Vol] 417 10*3/uL High 150-400 [facility] Comment on above: Order Comment: Speci men Type: BLOOD SPECIMENOrdering Facility: [facility] Address: [address] [place] [phone] Performed By: #### 5 8410-2 ####[facility] LABIA [id number] [place] [address] [place] RBC (Bld) [#/Vol] 3.54 10*6/uL Low 3.90-5.20 [facility] Comment on above: Order Comment: Speci men Type: BLOOD SPECIMENOrdering Facility: [facility] Address: [address] [place] [address] Performed By: #### 5 8410-2 ####[facility] LABCLIA [id number] [place] [address] [place] WBC (Bld) [#/Vol] 5.96 10*3/uL Normal 3.70-11.00 [facility] Comment on above: Order Comment: Speci men Type: BLOOD SPECIMENOrdering Facility: [facility] Address: [address] [place] [address] Performed By: #### 5 8410-2 ####[facility] LABCLIA [id number] [place] [address] [place] CONSULT PROGon 07-18-2022 CONSULT PROG Normal [facility] Renal function 2000 panelon 07-18-2022 Albumin [Mass/Vol] 3.6 g/dL Low 3.9-4.9 [facility] Comment on above: Order Comment: Speci men Type: BLOOD SPECIMENOrdering Facility: [facility] Address: [address] [place], [place] [address] Performed By: #### 2 4362-6 ####[facility] LABCLIA [id number] [place] [address] [place] Anion gap [Moles/Vol] 6 mmol/L Low 9-18 [facility] Comment on above: Order Comment: Speci men Type: BLOOD SPECIMENOrdering Facility: [facility] Address: [address] [place], [place] [address] Performed By: #### 2 4362-6 ####[facility] LABCLIA [id number] [place] [address] [place] Calcium [Mass/Vol] 9.1 mg/dL Normal 8.5-10.2 [facility] Comment on above: Order Comment: Speci men Type: BLOOD SPECIMENOrdering Facility: [facility] Address: [address] [address] Performed By: #### 2 4362-6 ####[facility] LABCLIA [id number] [place] [address] [place] Chloride [Moles/Vol] 101 mmol/L Normal 97-105 [facility] Comment on above: Order Comment: Speci men Type: BLOOD SPECIMENOrdering Facility: [facility] Address: [address] [address] Performed By: #### 2 4362-6 ####[facility] LABCLIA [id number] [place] [address] [place] CO2 [Moles/Vol] 29 mmol/L Normal 22-30 [facility] Comment on above: Order Comment: Speci men Type: BLOOD SPECIMENOrdering Facility: [facility] Address: [address] [place], [place] [address] Performed By: #### 2 4362-6 ####[facility] LABCLIA [id number] [place] [address] [place] Creatinine [Mass/Vol] 0.50 mg/dL Low 0.58-0.96 [facility] Comment on above: Order Comment: Speci men Type: BLOOD SPECIMENOrdering Facility: [facility] Address: [address] Performed By: #### 2 4362-6 ####[facility] LABCLIA [id number] [place] [address] [place] ESTIMATED GLOMERULAR FILTRATION RATE 110 mL/min/1.73m??? Normal >=60 [facility] Comment on above: Order Comment: Speci men Type: BLOOD SPECIMENOrdering Facility: [facility] Address: [address] [place] [phone] Result Comment: Maritza mated Glomerular Filtration Rate (eGFR) is calculated using the 2020 CKD-EPI creatinine equation. This equation utilizes serum creatinine, sex, and age as parameters. The creatinine assay has traceable calibration to isotope dilution-mass spectrometry. Refer to KDIGO guidelines for clinical interpretation. In patients with unstable renal function, e.g. those with acute kidney injury, the eGFR may not accurately reflect actual GFR. Performed By: #### 2 4362-6 ####[facility] LABCLIA [id number] [place] [address] [place] Glucose [Mass/Vol] 233 mg/dL High 74-99 [facility] Comment on above: Order Comment: [place] Type: BLOOD SPECIMENOrdering Facility: [facility] Address: [address] [address] Result Comment: The [place] [employer] (ADA) provides guidance for cutoff values for fasting glucose and random glucose. The ADA defines fasting as no caloric intake for at least 8 hours. Fasting plasma glucose results between 100 to 125 mg/dL indicate increased risk for diabetes (prediabetes).Fasting plasma glucose results greater than or equal to 126 mg/dL meet the criteria for diagnosis of diabetes. In the absence of unequivocal hyperglycemia, results should be confirmed by repeat testing. In a patient with classic symptoms of hyperglycemia or hyperglycemic crisis, random plasma glucose results greater than or equal to 200 mg/dL meet the criteria for diagnosis of diabetes.Reference: Standards of Medical Care in Diabetes 2016, [place] [employer]. Diabetes Care. 2016.39(Suppl 1). Performed By: #### 2 4362-6 ####[facility] LABCLIA [id number] [address] [id number] [place] Phosphate [Mass/Vol] 3.3 mg/dL Normal 2.7-4.8 [facility] Comment on above: Order Comment: [place] Type: BLOOD SPECIMENOrdering Facility: [facility] Address: [address] [phone] Performed By: #### 2 4362-6 ####[facility] LABCLIA [id number] [place] [address] [place] Potassium [Moles/Vol] 4.8 mmol/L Normal 3.7-5.1 [facility] Comment on above: Order Comment: Speci men Type: BLOOD SPECIMENOrdering Facility: [facility] Address: [address] [place] [address] Performed By: #### 2 4362-6 ####[facility] LABCLIA [id number] [place] [address] [place] Sodium [Moles/Vol] 136 mmol/L Normal 136-144 [facility] Comment on above: Order Comment: Speci men Type: BLOOD SPECIMENOrdering Facility: [facility] Address: [address] [place] [address] Performed By: #### 2 4362-6 ####[facility] LABCLIA [id number] [place] [address] [place] Urea nitrogen [Mass/Vol] 18 mg/dL Normal 7-21 [facility] Comment on above: Order Comment: Speci men Type: BLOOD SPECIMENOrdering Facility: [facility] Address: [address] [place] [address] Performed By: #### 2 4362-6 ####[facility] LABCLIA [id number] [place] [address] [place] THERAPY NTon 07-18-2022 THERAPY NT Normal [facility] CASE MANAGEMon 07-17-2022 CASE MANAGEM Normal [facility] CBC panel Auto (Bld)on 07-17 Erythrocyte distribution width (RBC) [Ratio] 13.8 % Normal 11.5-15.0 [facility] Comment on above: Order Comment: Speci men Type: BLOOD SPECIMENOrdering Facility: [facility] Address: [address] [place] [address] Performed By: #### 5 8410-2 ####[facility] LABCLIA [id number] [address] [place] Hematocrit (Bld) [Volume fraction] 34.6 % Low 36.0-46.0 [facility] Comment on above: Order Comment: Speci men Type: BLOOD SPECIMENOrdering Facility: [facility] Address: [address] [place] [address] Performed By: #### 5 8410-2 ####[facility] LABIA [id number] [address] [place] Hemoglobin (Bld) [Mass/Vol] 11.1 g/dL Low 11.5-15.5 [facility] Comment on above: Order Comment: Speci men Type: BLOOD SPECIMENOrdering Facility: [facility] Address: [address] [place] [address] Performed By: #### 5 8410-2 ####[facility] LABIA [id number] [address] [place] MCH (RBC) [Entitic mass] 30.4 pg Normal 26.0-34.0 [facility] Comment on above: Order Comment: Speci men Type: BLOOD SPECIMENOrdering Facility: [facility] Address: [address] [place], [place] [address] Performed By: #### 5 8410-2 ####[facility] LABIA [id number] [address] [place] MCHC (RBC) [Mass/Vol] 32.1 g/dL Normal 30.5-36.0 [facility] Comment on above: Order Comment: Speci men Type: BLOOD SPECIMENOrdering Facility: [facility] Address: [address] [place], [place] [address] Performed By: #### 5 8410-2 ####[facility] LABIA [id number] [place] [address] [place] MCV (RBC) [Entitic vol] 94.8 fL Normal 80.0-100.0 C [facility] Comment on above: Order Comment: Speci men Type: BLOOD SPECIMENOrdering Facility: [facility] Address: [address] [place] [address] Performed By: #### 5 8410-2 ####[facility] LABCLIA [id number] [place] [address] [place] Nucleated RBC (Bld) [#/Vol] 10*3/uL Normal <0.01 [facility] Comment on above: Order Comment: Speci men Type: BLOOD SPECIMENOrdering Facility: [facility] Address: [address] Performed By: #### 5 8410-2 ####[facility] LABIA [id number] [place] [address] [place] Platelet mean volume (Bld) [Entitic vol] 9.3 fL Normal 9.0-12.7 [facility] Comment on above: Order Comment: Speci men Type: BLOOD SPECIMENOrdering Facility: [facility] Address: [address] [place] [address] Performed By: #### 5 8410-2 ####[facility] LABIA [id number] [place] [address] [place] Platelets (Bld) [#/Vol] 490 10*3/uL High 150-400 [facility] Comment on above: Order Comment: Speci men Type: BLOOD SPECIMENOrdering Facility: [facility] Address: [address] [place] [address] Performed By: #### 5 8410-2 ####[facility] LABIA [id number] [place] [address] [place] RBC (Bld) [#/Vol] 3.65 10*6/uL Low 3.90-5.20 [facility] Comment on above: Order Comment: Speci men Type: BLOOD SPECIMENOrdering Facility: [facility] Address: [address] [phone] Performed By: #### 5 8410-2 ####[facility] LABCLIA [id number] [place] [address] [place] WBC (Bld) [#/Vol] 4.00 10*3/uL Normal 3.70-11.00 [facility] Comment on above: Order Comment: Speci men Type: BLOOD SPECIMENOrdering Facility: [facility] Address: [address] Performed By: #### 5 8410-2 ####[facility] LABIA [id number] [place] [address] [place] CONSULT PROGon 07-17-2022 CONSULT PROG Normal [facility] NUTRITIONon 07-17-2022 NUTRITION Normal [facility] Renal function 2000 panelon 07-17-2022 Albumin [Mass/Vol] 3.7 g/dL Low 3.9-4.9 [facility] Comment on above: Order Comment: Speci men Type: BLOOD SPECIMENOrdering Facility: [facility] Address: [address] Performed By: #### 2 4362-6 ####[facility] LABIA [id number] [place] [address] [place] Anion gap [Moles/Vol] 9 mmol/L Normal 9-18 [facility] Comment on above: Order Comment: Speci men Type: BLOOD SPECIMENOrdering Facility: [facility] Address: [address] Performed By: #### 2 4362-6 ####[facility] LABIA [id number] [place] [address] [place] Calcium [Mass/Vol] 9.4 mg/dL Normal 8.5-10.2 [facility] Comment on above: Order Comment: Speci men Type: BLOOD SPECIMENOrdering Facility: [facility] Address: [address] Performed By: #### 2 4362-6 ####[facility] LABCLIA [id number] [place] [address] [place] Chloride [Moles/Vol] 105 mmol/L Normal 97-105 [facility] Comment on above: Order Comment: Speci men Type: BLOOD SPECIMENOrdering Facility: [facility] Address: [address] [address] Performed By: #### 2 4362-6 ####[facility] LABCLIA [id number] [place] [address] [place] CO2 [Moles/Vol] 27 mmol/L Normal 22-30 [facility] Comment on above: Order Comment: Speci men Type: BLOOD SPECIMENOrdering Facility: [facility] Address: [address] [place] [address] Performed By: #### 2 4362-6 ####[facility] LABIA [id number] [place] [address] [place] Creatinine [Mass/Vol] 0.43 mg/dL Low 0.58-0.96 [facility] Comment on above: Order Comment: Speci men Type: BLOOD SPECIMENOrdering Facility: [facility] Address: [address] [place], [place] [address] Performed By: #### 2 4362-6 ####[facility] LABIA [id number] [address] [place] ESTIMATED GLOMERULAR FILTRATION RATE 114 mL/min/1.73m??? Normal >=60 [facility] Comment on above: Order Comment: Speci men Type: BLOOD SPECIMENOrdering Facility: [facility] Address: [address] [place] [address] Result Comment: Maritza mated Glomerular Filtration Rate (eGFR) is calculated using the 2020 CKD-EPI creatinine equation. This equation utilizes serum creatinine, sex, and age as parameters. The creatinine assay has traceable calibration to isotope dilution-mass spectrometry. Refer to KDIGO guidelines for clinical interpretation. In patients with unstable renal function, e.g. those with acute kidney injury, the eGFR may not accurately reflect actual GFR. Performed By: #### 2 4362-6 ####[facility] LABCLIA [id number] [place] [address] [place] Glucose [Mass/Vol] 103 mg/dL High 74-99 [facility] Comment on above: Order Comment: Speci men Type: BLOOD SPECIMENOrdering Facility: [facility] Address: [address] [phone] Result Comment: The [place] [employer] (ADA) provides guidance for cutoff values for fasting glucose and random glucose. The ADA defines fasting as no caloric intake for at least 8 hours. Fasting plasma glucose results between 100 to 125 mg/dL indicate increased risk for diabetes (prediabetes).Fasting plasma glucose results greater than or equal to 126 mg/dL meet the criteria for diagnosis of diabetes. In the absence of unequivocal hyperglycemia, results should be confirmed by repeat testing. In a patient with classic symptoms of hyperglycemia or hyperglycemic crisis, random plasma glucose results greater than or equal to 200 mg/dL meet the criteria for diagnosis of diabetes.Reference: Standards of Medical Care in Diabetes 2016, [place] [employer]. Diabetes Care. 2016.39(Suppl 1). Performed By: #### 2 4362-6 ####[facility] LABCLIA [id number] [place] [id number] [place] Phosphate [Mass/Vol] 3.7 mg/dL Normal 2.7-4.8 [facility] Comment on above: Order Comment: Speci men Type: BLOOD SPECIMENOrdering Facility: [facility] Address: [address] [place] [address] Performed By: #### 2 4362-6 ####[facility] LABIA [id number] [place] [id number] [place] Potassium [Moles/Vol] 4.1 mmol/L Normal 3.7-5.1 [facility] Comment on above: Order Comment: Speci men Type: BLOOD SPECIMENOrdering Facility: [facility] Address: [address] [address] Performed By: #### 2 4362-6 ####[facility] LABCLIA [id number] [address] [place] Sodium [Moles/Vol] 141 mmol/L Normal 136-144 [facility] Comment on above: Order Comment: Speci men Type: BLOOD SPECIMENOrdering Facility: [facility] Address: [address] [place] [address] Performed By: #### 2 4362-6 ####[facility] LABIA [id number] [place] [address] [place] Urea nitrogen [Mass/Vol] 20 mg/dL Normal 7-21 [facility] Comment on above: Order Comment: Speci men Type: BLOOD SPECIMENOrdering Facility: [facility] Address: [address] [place] [address] Performed By: #### 2 4362-6 ####[facility] LABIA [id number] [place] [address] [place] THERAPY NTon 07-17-2022 THERAPY NT Normal [facility] THERAPY NT Normal [facility] CBC panel Auto (Bld)on 07-16 Erythrocyte distribution width (RBC) [Ratio] 13.8 % Normal 11.5-15.0 [facility] Comment on above: Order Comment: Speci men Type: BLOOD SPECIMENOrdering Facility: [facility] Address: [address] Performed By: #### 5 8410-2 ####[facility] LABIA [id number] [address] [place] Hematocrit (Bld) [Volume fraction] 31.3 % Low 36.0-46.0 [facility] Comment on above: Order Comment: Speci men Type: BLOOD SPECIMENOrdering Facility: [facility] Address: [address] Performed By: #### 5 8410-2 ####[facility] LABCLIA [id number] [place] [address] [place] [facility] Hemoglobin (Bld) [Mass/Vol] 10.0 g/dL Low 11.5-15.5 [facility] Comment on above: Order Comment: Speci men Type: BLOOD SPECIMENOrdering Facility: [facility] Address: [address] Performed By: #### 5 8410-2 ####[facility] LABIA [id number] [address] [place] MCH (RBC) [Entitic mass] 30.3 pg Normal 26.0-34.0 [facility] Comment on above: Order Comment: Speci men Type: BLOOD SPECIMENOrdering Facility: [facility] Address: [address] [place], [place] [address] Performed By: #### 5 8410-2 ####[facility] LABIA [id number] [address] MCHC (RBC) [Mass/Vol] 31.9 g/dL Normal 30.5-36.0 [facility] Comment on above: Order Comment: Speci men Type: BLOOD SPECIMENOrdering Facility: [facility] Address: [address] Performed By: #### 5 8410-2 ####[facility] LABIA [id number] [place] [address] [place] MCV (RBC) [Entitic vol] 94.8 fL Normal 80.0-100.0 C [facility] Comment on above: Order Comment: Speci men Type: BLOOD SPECIMENOrdering Facility: [facility] Address: [address] [place], [place] [address] Performed By: #### 5 8410-2 ####[facility] LABCLIA [id number] [place] [address] [place] Nucleated RBC (Bld) [#/Vol] 10*3/uL Normal <0.01 [facility] Comment on above: Order Comment: Speci men Type: BLOOD SPECIMENOrdering Facility: [facility] Address: [address] [place] [address] Performed By: #### 5 8410-2 ####[facility] LABIA [id number] [place] [address] [place] Platelet mean volume (Bld) [Entitic vol] 9.2 fL Normal 9.0-12.7 [facility] Comment on above: Order Comment: Speci men Type: BLOOD SPECIMENOrdering Facility: [facility] Address: [address] [place] [address] Performed By: #### 5 8410-2 ####[facility] [id number] [place] [address] [place] Platelets (Bld) [#/Vol] 464 10*3/uL High 150-400 [facility] Comment on above: Order Comment: Speci men Type: BLOOD SPECIMENOrdering Facility: [facility] Address: [address] [place], [place] [address] Performed By: #### 5 8410-2 ####[facility] LABIA [id number] [place] [address] [place] RBC (Bld) [#/Vol] 3.30 10*6/uL Low 3.90-5.20 [facility] Comment on above: Order Comment: Speci men Type: BLOOD SPECIMENOrdering Facility: [facility] Address: [address] [place], [place] [address] Performed By: #### 5 8410-2 ####[facility] LABIA [id number] [place] [address] [place] WBC (Bld) [#/Vol] 4.77 10*3/uL Normal 3.70-11.00 [facility] Comment on above: Order Comment: Speci men Type: BLOOD SPECIMENOrdering Facility: [facility] Address: [address] [place] [address] Performed By: #### 5 8410-2 ####[facility] LABCLIA [id number] [place] [address] [place] CONSULT PROGon 07-16-2022 CONSULT PROG Normal [facility] CT BRAIN WO IVCONon 07-17-19 CT BRAIN WO IVCON Normal [facility] Renal function 2000 panelon 07-16-2022 Albumin [Mass/Vol] 3.2 g/dL Low 3.9-4.9 [facility] Comment on above: Order Comment: Speci men Type: BLOOD SPECIMENOrdering Facility: [facility] Address: [address] [place] [address] Performed By: #### 2 4362-6 ####[facility] LABCLIA [id number] [place] [address] [place] Anion gap [Moles/Vol] 11 mmol/L Normal 9-18 [facility] Comment on above: Order Comment: Speci men Type: BLOOD SPECIMENOrdering Facility: [facility] Address: [address] [place] [address] Performed By: #### 2 4362-6 ####[facility] LABCLIA [id number] [place] [address] [place] Calcium [Mass/Vol] 9.2 mg/dL Normal 8.5-10.2 [facility] Comment on above: Order Comment: Speci men Type: BLOOD SPECIMENOrdering Facility: [facility] Address: [address] [place], [place] [address] Performed By: #### 2 4362-6 ####[facility] LABCLIA [id number] [address] [place] Chloride [Moles/Vol] 106 mmol/L High 97-105 [facility] Comment on above: Order Comment: Speci men Type: BLOOD SPECIMENOrdering Facility: [facility] Address: [address] [place] [address] Performed By: #### 2 4362-6 ####[facility] LABCLIA [id number] [place] [address] [place] CO2 [Moles/Vol] 24 mmol/L Normal 22-30 [facility] Comment on above: Order Comment: Speci men Type: BLOOD SPECIMENOrdering Facility: [facility] Address: [address] [place] [address] Performed By: #### 2 4362-6 ####[facility] LABIA [id number] [address] STATES OF [facility] Creatinine [Mass/Vol] 0.48 mg/dL Low 0.58-0.96 [facility] Comment on above: Order Comment: Speci men Type: BLOOD SPECIMENOrdering Facility: [facility] Address: [address] [place] [address] Performed By: #### 2 4362-6 ####[facility] LABIA [id number] [address] OF [facility] ESTIMATED GLOMERULAR FILTRATION RATE 111 mL/min/1.73m??? Normal >=60 [facility] Comment on above: Order Comment: Speci men Type: BLOOD SPECIMENOrdering Facility: [facility] Address: [address] [place] [address] Result Comment: Maritza mated Glomerular Filtration Rate (eGFR) is calculated using the 2020 CKD-EPI creatinine equation. This equation utilizes serum creatinine, sex, and age as parameters. The creatinine assay has traceable calibration to isotope dilution-mass spectrometry. Refer to KDIGO guidelines for clinical interpretation. In patients with unstable renal function, e.g. those with acute kidney injury, the eGFR may not accurately reflect actual GFR. Performed By: #### 2 4362-6 ####[facility] LABCLIA [id number] [place] [address] [place] Glucose [Mass/Vol] 179 mg/dL High 74-99 [facility] Comment on above: Order Comment: Speci men Type: BLOOD SPECIMENOrdering Facility: [facility] Address: [address] [address] Result Comment: The [place] Diabetes [employer] (ADA) provides guidance for cutoff values for fasting glucose and random glucose. The ADA defines fasting as no caloric intake for at least 8 hours. Fasting plasma glucose results between 100 to 125 mg/dL indicate increased risk for diabetes (prediabetes).Fasting plasma glucose results greater than or equal to 126 mg/dL meet the criteria for diagnosis of diabetes. In the absence of unequivocal hyperglycemia, results should be confirmed by repeat testing. In a patient with classic symptoms of hyperglycemia or hyperglycemic crisis, random plasma glucose results greater than or equal to 200 mg/dL meet the criteria for diagnosis of diabetes.Reference: Standards of Medical Care in Diabetes 2016, [place] [employer]. Diabetes Care. 2016.39(Suppl 1). Performed By: #### 2 4362-6 ####[facility] LABCLIA [id number] [place] [address] [place] Phosphate [Mass/Vol] 3.4 mg/dL Normal 2.7-4.8 [facility] Comment on above: Order Comment: Speci men Type: BLOOD SPECIMENOrdering Facility: [facility] Address: [address] Performed By: #### 2 4362-6 ####[facility] LABCLIA [id number] [place] [address] [place] Potassium [Moles/Vol] 4.2 mmol/L Normal 3.7-5.1 [facility] Comment on above: Order Comment: Speci men Type: BLOOD SPECIMENOrdering Facility: [facility] Address: [address] [address] Performed By: #### 2 4362-6 ####[facility] LABCLIA [id number] [place] [address] [place] Sodium [Moles/Vol] 141 mmol/L Normal 136-144 [facility] Comment on above: Order Comment: Speci men Type: BLOOD SPECIMENOrdering Facility: [facility] Address: [address] [place] [address] Performed By: #### 2 4362-6 ####[facility] LABCLIA [id number] [place] [address] [place] Urea nitrogen [Mass/Vol] 25 mg/dL High 7-21 [facility] Comment on above: Order Comment: Speci men Type: BLOOD SPECIMENOrdering Facility: [facility] Address: [address] [place] [address] Performed By: #### 2 4362-6 ####[facility] LABCLIA [id number] [place] [address] [place] THERAPY NTon 07-16-2022 THERAPY NT Normal [facility] CBC panel Auto (Bld)on 07-15 Erythrocyte distribution width (RBC) [Ratio] 13.4 % Normal 11.5-15.0 [facility] Comment on above: Order Comment: Speci men Type: BLOOD SPECIMENOrdering Facility: [facility] Address: [address] [place], [place] [address] Performed By: #### 5 8410-2 ####[facility] LABCLIA [id number] [address] [place] Hematocrit (Bld) [Volume fraction] 30.6 % Low 36.0-46.0 [facility] Comment on above: Order Comment: Speci men Type: BLOOD SPECIMENOrdering Facility: [facility] Address: [address] [place], [place] [address] Performed By: #### 5 8410-2 ####[facility] LABCLIA [id number] [address] [place] Hemoglobin (Bld) [Mass/Vol] 10.3 g/dL Low 11.5-15.5 [facility] Comment on above: Order Comment: Speci men Type: BLOOD SPECIMENOrdering Facility: [facility] Address: [address] [place] [address] Performed By: #### 5 8410-2 ####[facility] LABCLIA [id number] [address] MCH (RBC) [Entitic mass] 30.7 pg Normal 26.0-34.0 [facility] Comment on above: Order Comment: Speci men Type: BLOOD SPECIMENOrdering Facility: [facility] Address: [address] [place] [address] Performed By: #### 5 8410-2 ####[facility] LABIA [id number] [address] MCHC (RBC) [Mass/Vol] 33.7 g/dL Normal 30.5-36.0 [facility] Comment on above: Order Comment: Speci men Type: BLOOD SPECIMENOrdering Facility: [facility] Address: [address] [place], [place] [address] Performed By: #### 5 8410-2 ####[facility] LABIA [id number] [address] OF [facility] MCV (RBC) [Entitic vol] 91.3 fL Normal 80.0-100.0 C [facility] Comment on above: Order Comment: Speci men Type: BLOOD SPECIMENOrdering Facility: [facility] Address: [address] [place], [place] [address] Performed By: #### 5 8410-2 ####[facility] LABCLIA [id number] [address] OF [facility] Nucleated RBC (Bld) [#/Vol] 10*3/uL Normal <0.01 [facility] Comment on above: Order Comment: Speci men Type: BLOOD SPECIMENOrdering Facility: [facility] Address: [address] [place] [address] Performed By: #### 5 8410-2 ####[facility] LABCLIA [id number] [place] [address] [place] Platelet mean volume (Bld) [Entitic vol] 9.2 fL Normal 9.0-12.7 [facility] Comment on above: Order Comment: Speci men Type: BLOOD SPECIMENOrdering Facility: [facility] Address: [address] [place] [address] Performed By: #### 5 8410-2 ####[facility] LABCLIA [id number] [place] [address] [place] Platelets (Bld) [#/Vol] 505 10*3/uL High 150-400 [facility] Comment on above: Order Comment: Speci men Type: BLOOD SPECIMENOrdering Facility: [facility] Address: [address] [place] [address] Performed By: #### 5 8410-2 ####[facility] LABIA [id number] [place] [address] [place] RBC (Bld) [#/Vol] 3.35 10*6/uL Low 3.90-5.20 [facility] Comment on above: Order Comment: Speci men Type: BLOOD SPECIMENOrdering Facility: [facility] Address: [address] [place], [place] [address] Performed By: #### 5 8410-2 ####[facility] LABIA [id number] [place] [address] [place] WBC (Bld) [#/Vol] 5.03 10*3/uL Normal 3.70-11.00 [facility] Comment on above: Order Comment: Speci men Type: BLOOD SPECIMENOrdering Facility: [facility] Address: [address] [place], [place] [address] Performed By: #### 5 8410-2 ####[facility] LABCLIA [id number] [place] [address] [place] CONSULT PROGon 07-15-2022 CONSULT PROG Normal [facility] NURSING PROGon 07-15-2022 NURSING PROG Normal [facility] Renal function 2000 panelon 07-15-2022 Albumin [Mass/Vol] 3.3 g/dL Low 3.9-4.9 [facility] Comment on above: Order Comment: Speci men Type: BLOOD SPECIMENOrdering Facility: [facility] Address: [address] Performed By: #### 2 4362-6 ####[facility] LABCLIA [id number] [place] [address] [place] Anion gap [Moles/Vol] 9 mmol/L Normal 9-18 [facility] Comment on above: Order Comment: Speci men Type: BLOOD SPECIMENOrdering Facility: [facility] Address: [address] Performed By: #### 2 4362-6 ####[facility] LABIA [id number] [place] [address] [place] Calcium [Mass/Vol] 8.9 mg/dL Normal 8.5-10.2 [facility] Comment on above: Order Comment: Speci men Type: BLOOD SPECIMENOrdering Facility: [facility] Address: [address] Performed By: #### 2 4362-6 ####[facility] LABIA [id number] [place] [address] [place] Chloride [Moles/Vol] 100 mmol/L Normal 97-105 [facility] Comment on above: Order Comment: Speci men Type: BLOOD SPECIMENOrdering Facility: [facility] Address: [address] Performed By: #### 2 4362-6 ####[facility] LABCLIA [id number] [place] [address] [place] CO2 [Moles/Vol] 24 mmol/L Normal 22-30 [facility] Comment on above: Order Comment: Speci men Type: BLOOD SPECIMENOrdering Facility: [facility] Address: [address] [place] [address] Performed By: #### 2 4362-6 ####[facility] LABCLIA [id number] [place] [address] [place] Creatinine [Mass/Vol] 0.45 mg/dL Low 0.58-0.96 [facility] Comment on above: Order Comment: Speci men Type: BLOOD SPECIMENOrdering Facility: [facility] Address: [address] [place] [address] Performed By: #### 2 4362-6 ####[facility] LABIA [id number] [address] [place] ESTIMATED GLOMERULAR FILTRATION RATE 113 mL/min/1.73m??? Normal >=60 [facility] Comment on above: Order Comment: Speci men Type: BLOOD SPECIMENOrdering Facility: [facility] Address: [address] [place] [address] Result Comment: Maritza mated Glomerular Filtration Rate (eGFR) is calculated using the 2020 CKD-EPI creatinine equation. This equation utilizes serum creatinine, sex, and age as parameters. The creatinine assay has traceable calibration to isotope dilution-mass spectrometry. Refer to KDIGO guidelines for clinical interpretation. In patients with unstable renal function, e.g. those with acute kidney injury, the eGFR may not accurately reflect actual GFR. Performed By: #### 2 4362-6 ####[facility] LABCLIA [id number] [place] [address] [place] Glucose [Mass/Vol] 349 mg/dL High 74-99 [facility] Comment on above: Order Comment: Speci men Type: BLOOD SPECIMENOrdering Facility: [facility] Address: [address] [id number] Result Comment: The [place] [employer] (ADA) provides guidance for cutoff values for fasting glucose and random glucose. The ADA defines fasting as no caloric intake for at least 8 hours. Fasting plasma glucose results between 100 to 125 mg/dL indicate increased risk for diabetes (prediabetes).Fasting plasma glucose results greater than or equal to 126 mg/dL meet the criteria for diagnosis of diabetes. In the absence of unequivocal hyperglycemia, results should be confirmed by repeat testing. In a patient with classic symptoms of hyperglycemia or hyperglycemic crisis, random plasma glucose results greater than or equal to 200 mg/dL meet the criteria for diagnosis of diabetes.Reference: Standards of Medical Care in Diabetes 2016, [place] [employer]. Diabetes Care. 2016.39(Suppl 1). Performed By: #### 2 4362-6 ####[facility] LABCLIA [id number] [place] [address] [place] Phosphate [Mass/Vol] 3.3 mg/dL Normal 2.7-4.8 [facility] Comment on above: Order Comment: Speci men Type: BLOOD SPECIMENOrdering Facility: [facility] Address: [address] [address] Performed By: #### 2 4362-6 ####[facility] LABCLIA [id number] [place] [address] [place] Potassium [Moles/Vol] 4.0 mmol/L Normal 3.7-5.1 [facility] Comment on above: Order Comment: Speci men Type: BLOOD SPECIMENOrdering Facility: [facility] Address: [address] [address] Performed By: #### 2 4362-6 ####[facility] LABCLIA [id number] [place] [address] [place] Sodium [Moles/Vol] 133 mmol/L Low 136-144 [facility] Comment on above: Order Comment: Speci men Type: BLOOD SPECIMENOrdering Facility: [facility] Address: [address] Performed By: #### 2 4362-6 ####[facility] LABCLIA [id number] [place] [address] [place] Urea nitrogen [Mass/Vol] 24 mg/dL High 7-21 [facility] Comment on above: Order Comment: Speci men Type: BLOOD SPECIMENOrdering Facility: [facility] Address: [address] [place], [place] [address] Performed By: #### 2 4362-6 ####[facility] LABCLIA [id number] [place] [address] [place] ALLIED HEALTHon 07-14-2022 ALLIED HEALTH Normal [facility] CASE MANAGEMon 07-14-2022 CASE MANAGEM Normal [facility] CBC panel Auto (Bld)on 07-14 Erythrocyte distribution width (RBC) [Ratio] 13.4 % Normal 11.5-15.0 [facility] Comment on above: Order Comment: Speci men Type: BLOOD SPECIMENOrdering Facility: [facility] Address: [address] [place], [place] [address] Performed By: #### 5 8410-2 ####[facility] LABCLIA [id number] [place] [address] [place] Hematocrit (Bld) [Volume fraction] 33.8 % Low 36.0-46.0 [facility] Comment on above: Order Comment: Speci men Type: BLOOD SPECIMENOrdering Facility: [facility] Address: [address] [place], [place] [address] Performed By: #### 5 8410-2 ####[facility] LABCLIA [id number] [place] [address] [place] Hemoglobin (Bld) [Mass/Vol] 11.1 g/dL Low 11.5-15.5 [facility] Comment on above: Order Comment: Speci men Type: BLOOD SPECIMENOrdering Facility: [facility] Address: [address] Performed By: #### 5 8410-2 ####[facility] [id number] [address] MCH (RBC) [Entitic mass] 30.3 pg Normal 26.0-34.0 [facility] Comment on above: Order Comment: Speci men Type: BLOOD SPECIMENOrdering Facility: [facility] Address: [address] Performed By: #### 5 8410-2 ####[facility] [id number] [address] MCHC (RBC) [Mass/Vol] 32.8 g/dL Normal 30.5-36.0 [facility] Comment on above: Order Comment: Speci men Type: BLOOD SPECIMENOrdering Facility: [facility] Address: [address] [place], [place] [address] Performed By: #### 5 8410-2 ####[facility] [id number] [address] [facility] MCV (RBC) [Entitic vol] 92.3 fL Normal 80.0-100.0 C [facility] Comment on above: Order Comment: Speci men Type: BLOOD SPECIMENOrdering Facility: [facility] Address: [address] [place] [address] Performed By: #### 5 8410-2 ####[facility] [id number] [address] Nucleated RBC (Bld) [#/Vol] 10*3/uL Normal <0.01 [facility] Comment on above: Order Comment: Speci men Type: BLOOD SPECIMENOrdering Facility: [facility] Address: [address] Performed By: #### 5 8410-2 ####[facility] LABCLIA [id number] [place] [address] [place] Platelet mean volume (Bld) [Entitic vol] 9.5 fL Normal 9.0-12.7 [facility] Comment on above: Order Comment: Speci men Type: BLOOD SPECIMENOrdering Facility: [facility] Address: [address] [place], [place] [address] Performed By: #### 5 8410-2 ####[facility] LABIA [id number] [place] [address] [place] Platelets (Bld) [#/Vol] 518 10*3/uL High 150-400 [facility] Comment on above: Order Comment: Speci men Type: BLOOD SPECIMENOrdering Facility: [facility] Address: [address] [place], [place] [address] Performed By: #### 5 8410-2 ####[facility] LABIA [id number] [place] [address] [place] RBC (Bld) [#/Vol] 3.66 10*6/uL Low 3.90-5.20 [facility] Comment on above: Order Comment: Speci men Type: BLOOD SPECIMENOrdering Facility: [facility] Address: [address] [place], [place] [address] Performed By: #### 5 8410-2 ####[facility] LABIA [id number] [place] [address] [place] WBC (Bld) [#/Vol] 4.08 10*3/uL Normal 3.70-11.00 [facility] Comment on above: Order Comment: Speci men Type: BLOOD SPECIMENOrdering Facility: [facility] Address: [address] [place], [place] [address] Performed By: #### 5 8410-2 ####[facility] LABIA [id number] [address] [place] Renal function 2000 panelon 07-14-2022 Albumin [Mass/Vol] 3.4 g/dL Low 3.9-4.9 [facility] Comment on above: Order Comment: Speci men Type: BLOOD SPECIMENOrdering Facility: [facility] Address: [address] [place] [address] Performed By: #### 2 4362-6 ####[facility] LABCLIA [id number] [place] [address] [place] Anion gap [Moles/Vol] 13 mmol/L Normal 9-18 [facility] Comment on above: Order Comment: Speci men Type: BLOOD SPECIMENOrdering Facility: [facility] Address: [address] [place] [address] Performed By: #### 2 4362-6 ####[facility] LABCLIA [id number] [place] [address] [place] Calcium [Mass/Vol] 9.1 mg/dL Normal 8.5-10.2 [facility] Comment on above: Order Comment: Speci men Type: BLOOD SPECIMENOrdering Facility: [facility] Address: [address] [place], [place] [address] Performed By: #### 2 4362-6 ####[facility] LABCLIA [id number] [place] [address] [place] Chloride [Moles/Vol] 100 mmol/L Normal 97-105 [facility] Comment on above: Order Comment: Speci men Type: BLOOD SPECIMENOrdering Facility: [facility] Address: [address] [place] [address] Performed By: #### 2 4362-6 ####[facility] LABCLIA [id number] [place] [address] [place] CO2 [Moles/Vol] 22 mmol/L Normal 22-30 [facility] Comment on above: Order Comment: Speci men Type: BLOOD SPECIMENOrdering Facility: [facility] Address: [address] [address] Performed By: #### 2 4362-6 ####[facility] [id number] [address] [place] Creatinine [Mass/Vol] 0.42 mg/dL Low 0.58-0.96 [facility] Comment on above: Order Comment: Speci men Type: BLOOD SPECIMENOrdering Facility: [facility] Address: [address] [address] Performed By: #### 2 4362-6 ####[facility] [id number] [address] STATES OF [facility] ESTIMATED GLOMERULAR FILTRATION RATE 115 mL/min/1.73m??? Normal >=60 [facility] Comment on above: Order Comment: Speci men Type: BLOOD SPECIMENOrdering Facility: [facility] Address: [address] [address] Result Comment: Maritza mated Glomerular Filtration Rate (eGFR) is calculated using the 2020 CKD-EPI creatinine equation. This equation utilizes serum creatinine, sex, and age as parameters. The creatinine assay has traceable calibration to isotope dilution-mass spectrometry. Refer to KDIGO guidelines for clinical interpretation. In patients with unstable renal function, e.g. those with acute kidney injury, the eGFR may not accurately reflect actual GFR. Performed By: #### 2 4362-6 ####[facility] [id number] [place] [address] [place] Glucose [Mass/Vol] 511 mg/dL High 74-99 [facility] Comment on above: Order Comment: Speci men Type: BLOOD SPECIMENOrdering Facility: [facility] Address: [address] [place] [address] Result Comment: The [place] [employer] (ADA) provides guidance for cutoff values for fasting glucose and random glucose. The ADA defines fasting as no caloric intake for at least 8 hours. Fasting plasma glucose results between 100 to 125 mg/dL indicate increased risk for diabetes (prediabetes).Fasting plasma glucose results greater than or equal to 126 mg/dL meet the criteria for diagnosis of diabetes. In the absence of unequivocal hyperglycemia, results should be confirmed by repeat testing. In a patient with classic symptoms of hyperglycemia or hyperglycemic crisis, random plasma glucose results greater than or equal to 200 mg/dL meet the criteria for diagnosis of diabetes.Reference: Standards of Medical Care in Diabetes 2016, [place] [employer]. Diabetes Care. 2016.39(Suppl 1). Performed By: #### 2 4362-6 ####[facility] LABCLIA [id number] [place] [address] [place] Phosphate [Mass/Vol] 3.2 mg/dL Normal 2.7-4.8 [facility] Comment on above: Order Comment: Radamesi men Type: BLOOD SPECIMENOrdering Facility: [facility] Address: [address] [place] [address] Performed By: #### 2 4362-6 ####[facility] LABIA [id number] [place] [address] [place] Potassium [Moles/Vol] 4.5 mmol/L Normal 3.7-5.1 [facility] Comment on above: Order Comment: Patrick hill Type: BLOOD SPECIMENOrdering Facility: [facility] Address: [address] [address] Performed By: #### 2 4362-6 ####[facility] LABIA [id number] [place] [address] [place] Sodium [Moles/Vol] 135 mmol/L Low 136-144 [facility] Comment on above: Order Comment: Speci men Type: BLOOD SPECIMENOrdering Facility: [facility] Address: [address] [address] Performed By: #### 2 4362-6 ####[facility] LABIA [id number] [place] [address] [place] Urea nitrogen [Mass/Vol] 23 mg/dL High 7-21 [facility] Comment on above: Order Comment: Speci men Type: BLOOD SPECIMENOrdering Facility: [facility] Address: [address] [place] [address] Performed By: #### 2 4362-6 ####[facility] LABCLIA [id number] [place] [address] [place] THERAPY NTon 07-14-2022 THERAPY NT Normal [facility] CASE MANAGEMon 07-13-2022 CASE MANAGEM Normal [facility] CBC panel Auto (Bld)on 07-13 Erythrocyte distribution width (RBC) [Ratio] 13.3 % Normal 11.5-15.0 [facility] Comment on above: Order Comment: Speci men Type: BLOOD SPECIMENOrdering Facility: [facility] Address: [address] [place] [address] Performed By: #### 5 8410-2 ####[facility] LABCLIA [id number] [place] [address] [place] Hematocrit (Bld) [Volume fraction] 34.5 % Low 36.0-46.0 [facility] Comment on above: Order Comment: Speci men Type: BLOOD SPECIMENOrdering Facility: [facility] Address: [address] [place] [address] Performed By: #### 5 8410-2 ####[facility] LABCLIA [id number] [place] [address] [place] Hemoglobin (Bld) [Mass/Vol] 11.2 g/dL Low 11.5-15.5 [facility] Comment on above: Order Comment: Speci men Type: BLOOD SPECIMENOrdering Facility: [facility] Address: [address] [place] [address] Performed By: #### 5 8410-2 ####[facility] LABCLIA [id number] [place] [address] [place] MCH (RBC) [Entitic mass] 29.9 pg Normal 26.0-34.0 [facility] Comment on above: Order Comment: Speci men Type: BLOOD SPECIMENOrdering Facility: [facility] Address: [address] [place], [place] [address] Performed By: #### 5 8410-2 ####[facility] LABCLIA [id number] [address] [place] MCHC (RBC) [Mass/Vol] 32.5 g/dL Normal 30.5-36.0 [facility] Comment on above: Order Comment: Speci men Type: BLOOD SPECIMENOrdering Facility: [facility] Address: [address] [place] [address] Performed By: #### 5 8410-2 ####[facility] LABIA [id number] [place] [address] [place] MCV (RBC) [Entitic vol] 92.0 fL Normal 80.0-100.0 [facility] Comment on above: Order Comment: Speci men Type: BLOOD SPECIMENOrdering Facility: [facility] Address: [address] [place], [place] [address] Performed By: #### 5 8410-2 ####[facility] LABIA [id number] [place] [address] [place] Nucleated RBC (Bld) [#/Vol] 10*3/uL Normal <0.01 [facility] Comment on above: Order Comment: Speci men Type: BLOOD SPECIMENOrdering Facility: [facility] Address: [address] [place], [place] [address] Performed By: #### 5 8410-2 ####[facility] LABIA [id number] [place] [address] [place] Platelet mean volume (Bld) [Entitic vol] 9.1 fL Normal 9.0-12.7 [facility] Comment on above: Order Comment: Speci men Type: BLOOD SPECIMENOrdering Facility: [facility] Address: [address] Performed By: #### 5 8410-2 ####[facility] LABIA [id number] [place] [address] [place] Platelets (Bld) [#/Vol] 583 10*3/uL High 150-400 [facility] Comment on above: Order Comment: Speci men Type: BLOOD SPECIMENOrdering Facility: [facility] Address: [address] [place] [address] Performed By: #### 5 8410-2 ####[facility] LABIA [id number] [place] [address] [place] RBC (Bld) [#/Vol] 3.75 10*6/uL Low 3.90-5.20 [facility] Comment on above: Order Comment: Speci men Type: BLOOD SPECIMENOrdering Facility: [facility] Address: [address] [place] [address] Performed By: #### 5 8410-2 ####[facility] LABIA [id number] [place] [address] [place] [facility] [place] WBC (Bld) [#/Vol] 5.63 10*3/uL Normal 3.70-11.00 [facility] Comment on above: Order Comment: Speci men Type: BLOOD SPECIMENOrdering Facility: [facility] Address: [address] [place] [address] Performed By: #### 5 8410-2 ####[facility] [id number] [place] [address] [place] CONSULT PROGon 07-13-2022 CONSULT PROG Normal [facility] CONSULT PROG Normal [facility] Comprehensive metabolic 2000 panelon 07-13-2022 Albumin [Mass/Vol] 3.3 g/dL Low 3.9-4.9 [facility] Comment on above: Order Comment: Speci men Type: BLOOD SPECIMENOrdering Facility: [facility] Address: [address] Performed By: #### 2 4323-8, 45933-5 ####[facility] LABCLIA [id number] [place] [address] [place] ALP [Catalytic activity/Vol] 95 U/L Normal 34-123 [facility] Comment on above: Order Comment: Speci men Type: BLOOD SPECIMENOrdering Facility: [facility] Address: [address] Performed By: #### 2 4323-8, 45855-3 ####[facility] LABCLIA [id number] [address] [place] ALT [Catalytic activity/Vol] 12 U/L Normal 7-38 [facility] Comment on above: Order Comment: Speci men Type: BLOOD SPECIMENOrdering Facility: [facility] Address: [address] [place], [place] [address] Performed By: #### 2 4323-8, 61843-9 ####[facility] LABCLIA [id number] [place] [address] [place] Anion gap [Moles/Vol] 14 mmol/L Normal 9-18 [facility] Comment on above: Order Comment: Speci men Type: BLOOD SPECIMENOrdering Facility: [facility] Address: [address] [place], [place] [address] Performed By: #### 2 4323-8, 31841-6 ####[facility] LABCLIA [id number] [place] [address] [place] AST [Catalytic activity/Vol] 13 U/L Normal 13-35 [facility] Comment on above: Order Comment: Speci men Type: BLOOD SPECIMENOrdering Facility: [facility] Address: [address] Performed By: #### 2 4323-8, 09476-5 ####[facility] LABIA [id number] [place] [address] [place] Bilirubin [Mass/Vol] 0.3 mg/dL Normal 0.2-1.3 [facility] Comment on above: Order Comment: Speci men Type: BLOOD SPECIMENOrdering Facility: [facility] Address: [address] [place] [address] Performed By: #### 2 4323-8, 44655-0 ####[facility] LABIA [id number] [place] [address] [place] Calcium [Mass/Vol] 9.1 mg/dL Normal 8.5-10.2 [facility] Comment on above: Order Comment: Speci men Type: BLOOD SPECIMENOrdering Facility: [facility] Address: [address] [place] [address] Performed By: #### 2 4323-8, 62577-2 ####[facility] LABIA [id number] [place] [address] [place] CO2 [Moles/Vol] 21 mmol/L Low 22-30 [facility] Comment on above: Order Comment: Speci men Type: BLOOD SPECIMENOrdering Facility: [facility] Address: [address] [place] [address] Performed By: #### 2 4323-8, 76309-6 ####[facility] [id number] [place] [address] [place] Glucose [Mass/Vol] 175 mg/dL High 74-99 [facility] Comment on above: Order Comment: Speci men Type: BLOOD SPECIMENOrdering Facility: [facility] Address: [address] [place] [address] Result Comment: The [place] [employer] (ADA) provides guidance for cutoff values for fasting glucose and random glucose. The ADA defines fasting as no caloric intake for at least 8 hours. Fasting plasma glucose results between 100 to 125 mg/dL indicate increased risk for diabetes (prediabetes).Fasting plasma glucose results greater than or equal to 126 mg/dL meet the criteria for diagnosis of diabetes. In the absence of unequivocal hyperglycemia, results should be confirmed by repeat testing. In a patient with classic symptoms of hyperglycemia or hyperglycemic crisis, random plasma glucose results greater than or equal to 200 mg/dL meet the criteria for diagnosis of diabetes.Reference: Standards of Medical Care in Diabetes 2016, [place] [employer]. Diabetes Care. 2016.39(Suppl 1). Performed By: #### 2 4323-8, 60313-2 ####[facility] LABCLIA [id number] [place] [address] [place] Potassium [Moles/Vol] 4.3 mmol/L Normal 3.7-5.1 [facility] Comment on above: Order Comment: Speci men Type: BLOOD SPECIMENOrdering Facility: [facility] Address: [address] [place] [address] Performed By: #### 2 4328, 53895-1 ####[facility] LABCLIA [id number] [place] [address] [place] Protein [Mass/Vol] 5.8 g/dL Low 6.3-8.0 [facility] Comment on above: Order Comment: Speci men Type: BLOOD SPECIMENOrdering Facility: [facility] Address: [address] [address] Performed By: #### 2 4323-8, 29477-6 ####[facility] LABCLIA [id number] [place] [address] [place] Sodium [Moles/Vol] 134 mmol/L Low 136-144 [facility] Comment on above: Order Comment: Speci men Type: BLOOD SPECIMENOrdering Facility: [facility] Address: [address] [address] Performed By: #### 2 4323-8, 64065-3 ####[facility] LABCLIA [id number] [place] [address] [place] Renal Func 2000 Pnl SerPlon 07-13-2022 Chloride [Moles/Vol] 99 mmol/L Normal 97-105 [facility] Comment on above: Order Comment: Radamesi sergio Type: BLOOD SPECIMENOrdering Facility: [facility] Address: [address] [place] [address] Performed By: #### 2 4323-8, 32030-8 ####[facility] LABCLIA [id number] [address] [place] Creatinine [Mass/Vol] 0.36 mg/dL Low 0.58-0.96 [facility] Comment on above: Order Comment: Radamesi men Type: BLOOD SPECIMENOrdering Facility: [facility] Address: [address] [place] [address] Performed By: #### 2 4323-8, 15543-1 ####[facility] LABIA [id number] [address] ESTIMATED GLOMERULAR FILTRATION RATE 119 mL/min/1.73m??? Normal >=60 [facility] Comment on above: Order Comment: Patrick hill Type: BLOOD SPECIMENOrdering Facility: [facility] Address: [address] [place] [address] Result Comment: Maritza mated Glomerular Filtration Rate (eGFR) is calculated using the 2020 CKD-EPI creatinine equation. This equation utilizes serum creatinine, sex, and age as parameters. The creatinine assay has traceable calibration to isotope dilution-mass spectrometry. Refer to KDIGO guidelines for clinical interpretation. In patients with unstable renal function, e.g. those with acute kidney injury, the eGFR may not accurately reflect actual GFR. Performed By: #### 2 4323-8, 36681-7 ####[facility] LABIA [id number] [place] [address] [place] Urea nitrogen [Mass/Vol] 17 mg/dL Normal 7-21 [facility] Comment on above: Order Comment: Speci men Type: BLOOD SPECIMENOrdering Facility: [facility] Address: [address] Performed By: #### 2 4323-8, 83576-8 ####[facility] LABCLIA [id number] [place] [address] [place] Renal function 2000 panelon 07-13-2022 Albumin [Mass/Vol] 3.4 g/dL Low 3.9-4.9 [facility] Comment on above: Order Comment: Speci men Type: BLOOD SPECIMENOrdering Facility: [facility] Address: [address] Performed By: #### 2 4323-8, 93639-2 ####[facility] LABCLIA [id number] [place] [address] [place] Anion gap [Moles/Vol] 9 mmol/L Normal 9-18 [facility] Comment on above: Order Comment: Speci men Type: BLOOD SPECIMENOrdering Facility: [facility] Address: [address] Performed By: #### 2 4323-8, 50002-6 ####[facility] LABCLIA [id number] [place] [address] [place] Calcium [Mass/Vol] 9.0 mg/dL Normal 8.5-10.2 [facility] Comment on above: Order Comment: Speci men Type: BLOOD SPECIMENOrdering Facility: [facility] Address: [address] Performed By: #### 2 4323-8, 61234-3 ####[facility] LABCLIA [id number] [place] [address] [place] CO2 [Moles/Vol] 25 mmol/L Normal 22-30 [facility] Comment on above: Order Comment: Speci men Type: BLOOD SPECIMENOrdering Facility: [facility] Address: [address] Performed By: #### 2 4323-8, 70098-0 ####[facility] LABIA [id number] [place] [address] [place] Glucose [Mass/Vol] 184 mg/dL High 74-99 [facility] Comment on above: Order Comment: Speci men Type: BLOOD SPECIMENOrdering Facility: [facility] Address: [address] [place] [address] Result Comment: The [place] [employer] (ADA) provides guidance for cutoff values for fasting glucose and random glucose. The ADA defines fasting as no caloric intake for at least 8 hours. Fasting plasma glucose results between 100 to 125 mg/dL indicate increased risk for diabetes (prediabetes).Fasting plasma glucose results greater than or equal to 126 mg/dL meet the criteria for diagnosis of diabetes. In the absence of unequivocal hyperglycemia, results should be confirmed by repeat testing. In a patient with classic symptoms of hyperglycemia or hyperglycemic crisis, random plasma glucose results greater than or equal to 200 mg/dL meet the criteria for diagnosis of diabetes.Reference: Standards of Medical Care in Diabetes 2016, [place] [employer]. Diabetes Care. 2016.39(Suppl 1). Performed By: #### 2 4323-8, 00376-4 ####[facility] LABIA [id number] [place] [address] [place] Phosphate [Mass/Vol] 2.7 mg/dL Normal 2.7-4.8 [facility] Comment on above: Order Comment: Speci men Type: BLOOD SPECIMENOrdering Facility: [facility] Address: [address] [place] [address] Performed By: #### 2 4323-8, 84326-7 ####[facility] LABIA [id number] [place] [address] [place] Potassium [Moles/Vol] 4.0 mmol/L Normal 3.7-5.1 [facility] Comment on above: Order Comment: Speci men Type: BLOOD SPECIMENOrdering Facility: [facility] Address: [address] [place] [address] Performed By: #### 2 4323-8, 95071-1 ####[facility] LABCLIA [id number] [place] [address] [place] Sodium [Moles/Vol] 133 mmol/L Low 136-144 [facility] Comment on above: Order Comment: Speci men Type: BLOOD SPECIMENOrdering Facility: [facility] Address: [address] [place], [place] [address] Performed By: #### 2 4323-8, 58867-1 ####[facility] LABCLIA [id number] [address] [place] CASE MANAGEMon 07-12-2022 CASE MANAGEM Normal [facility] CBC panel Auto (Bld)on 07-12 Erythrocyte distribution width (RBC) [Ratio] 13.6 % Normal 11.5-15.0 [facility] Comment on above: Order Comment: Speci men Type: BLOOD SPECIMENOrdering Facility: [facility] Address: [address] [place] [address] Performed By: #### 5 8410-2 ####[facility] LABIA [id number] [address] [place] Hematocrit (Bld) [Volume fraction] 31.9 % Low 36.0-46.0 [facility] Comment on above: Order Comment: Speci men Type: BLOOD SPECIMENOrdering Facility: [facility] Address: [address] [place] [address] Performed By: #### 5 8410-2 ####[facility] LABIA [id number] [place] [address] [place] Hemoglobin (Bld) [Mass/Vol] 10.7 g/dL Low 11.5-15.5 [facility] Comment on above: Order Comment: Speci men Type: BLOOD SPECIMENOrdering Facility: [facility] Address: [address] [place], [place] [address] Performed By: #### 5 8410-2 ####[facility] [id number] [address] MCH (RBC) [Entitic mass] 30.7 pg Normal 26.0-34.0 [facility] Comment on above: Order Comment: Speci men Type: BLOOD SPECIMENOrdering Facility: [facility] Address: [address] [place] [address] Performed By: #### 5 8410-2 ####[facility] [id number] [address] [place] MCHC (RBC) [Mass/Vol] 33.5 g/dL Normal 30.5-36.0 [facility] Comment on above: Order Comment: Speci men Type: BLOOD SPECIMENOrdering Facility: [facility] Address: [address] [place] [address] Performed By: #### 5 8410-2 ####[facility] [id number] [address] [place] MCV (RBC) [Entitic vol] 91.7 fL Normal 80.0-100.0 [facility] Comment on above: Order Comment: Speci men Type: BLOOD SPECIMENOrdering Facility: [facility] Address: [address] [place] [address] Performed By: #### 5 8410-2 ####[facility] [id number] [address] [place] Nucleated RBC (Bld) [#/Vol] 10*3/uL Normal <0.01 [facility] Comment on above: Order Comment: Speci men Type: BLOOD SPECIMENOrdering Facility: [facility] Address: [address] [place] [address] Performed By: #### 5 8410-2 ####[facility] [id number] [id number] [address] [place] Platelet mean volume (Bld) [Entitic vol] 8.9 fL Low 9.0-12.7 [facility] Comment on above: Order Comment: Speci men Type: BLOOD SPECIMENOrdering Facility: [facility] Address: [address] [place], [place] [address] Performed By: #### 5 8410-2 ####[facility] LABCLIA [id number] [place] [address] [place] Platelets (Bld) [#/Vol] 570 10*3/uL High 150-400 [facility] Comment on above: Order Comment: Speci men Type: BLOOD SPECIMENOrdering Facility: [facility] Address: [address] [place], [place] [address] Performed By: #### 5 8410-2 ####[facility] LABCLIA [id number] [place] [address] [place] RBC (Bld) [#/Vol] 3.48 10*6/uL Low 3.90-5.20 [facility] Comment on above: Order Comment: Speci men Type: BLOOD SPECIMENOrdering Facility: [facility] Address: [address] [place], [place] [address] Performed By: #### 5 8410-2 ####[facility] LABIA [id number] [place] [address] [place] WBC (Bld) [#/Vol] 6.34 10*3/uL Normal 3.70-11.00 [facility] Comment on above: Order Comment: Speci men Type: BLOOD SPECIMENOrdering Facility: [facility] Address: [address] [place], [place] [address] Performed By: #### 5 8410-2 ####[facility] LABCLIA [id number] [place] [address] [place] CONSULT PROGon 07-12-2022 CONSULT PROG Normal [facility] NURSING PROGon 07-12-2022 NURSING PROG Normal [facility] Renal function 2000 panelon 07-12-2022 Albumin [Mass/Vol] 3.3 g/dL Low 3.9-4.9 [facility] Comment on above: Order Comment: Speci men Type: BLOOD SPECIMENOrdering Facility: [facility] Address: [address] [place] [address] Performed By: #### 2 4362-6 ####[facility] LABCLIA [id number] [place] [address] [place] Anion gap [Moles/Vol] 7 mmol/L Low 9-18 [facility] Comment on above: Order Comment: Speci men Type: BLOOD SPECIMENOrdering Facility: [facility] Address: [address] [place] [address] Performed By: #### 2 4362-6 ####[facility] LABCLIA [id number] [place] [address] [place] Calcium [Mass/Vol] 8.9 mg/dL Normal 8.5-10.2 [facility] Comment on above: Order Comment: Speci men Type: BLOOD SPECIMENOrdering Facility: [facility] Address: [address] [place] [address] Performed By: #### 2 4362-6 ####[facility] LABCLIA [id number] [place] [address] [place] Chloride [Moles/Vol] 104 mmol/L Normal 97-105 [facility] Comment on above: Order Comment: Speci men Type: BLOOD SPECIMENOrdering Facility: [facility] Address: [address] [place], [place] [address] Performed By: #### 2 4362-6 ####[facility] LABCLIA [id number] [place] [address] [place] CO2 [Moles/Vol] 25 mmol/L Normal 22-30 [facility] Comment on above: Order Comment: Speci men Type: BLOOD SPECIMENOrdering Facility: [facility] Address: [address] [address] Performed By: #### 2 4362-6 ####[facility] [id number] [address] STATES OF [facility] Creatinine [Mass/Vol] 0.42 mg/dL Low 0.58-0.96 [facility] Comment on above: Order Comment: Speci men Type: BLOOD SPECIMENOrdering Facility: [facility] Address: [address] [address] Performed By: #### 2 4362-6 ####[facility] [id number] [address] [place] ESTIMATED GLOMERULAR FILTRATION RATE 115 mL/min/1.73m??? Normal >=60 [facility] Comment on above: Order Comment: Speci men Type: BLOOD SPECIMENOrdering Facility: [facility] Address: [address] [place] [address] Result Comment: Maritza mated Glomerular Filtration Rate (eGFR) is calculated using the 2020 CKD-EPI creatinine equation. This equation utilizes serum creatinine, sex, and age as parameters. The creatinine assay has traceable calibration to isotope dilution-mass spectrometry. Refer to KDIGO guidelines for clinical interpretation. In patients with unstable renal function, e.g. those with acute kidney injury, the eGFR may not accurately reflect actual GFR. Performed By: #### 2 4362-6 ####[facility] LABIA [id number] [place] [address] [place] Glucose [Mass/Vol] 240 mg/dL High 74-99 [facility] Comment on above: Order Comment: Speci men Type: BLOOD SPECIMENOrdering Facility: [facility] Address: [address] [place] [address] Result Comment: The [place] [employer] (ADA) provides guidance for cutoff values for fasting glucose and random glucose. The ADA defines fasting as no caloric intake for at least 8 hours. Fasting plasma glucose results between 100 to 125 mg/dL indicate increased risk for diabetes (prediabetes).Fasting plasma glucose results greater than or equal to 126 mg/dL meet the criteria for diagnosis of diabetes. In the absence of unequivocal hyperglycemia, results should be confirmed by repeat testing. In a patient with classic symptoms of hyperglycemia or hyperglycemic crisis, random plasma glucose results greater than or equal to 200 mg/dL meet the criteria for diagnosis of diabetes.Reference: Standards of Medical Care in Diabetes 2016, [place] [employer]. Diabetes Care. 2016.39(Suppl 1). Performed By: #### 2 4362-6 ####[facility] LABIA [id number] [place] [address] [place] Phosphate [Mass/Vol] 3.0 mg/dL Normal 2.7-4.8 [facility] Comment on above: Order Comment: Speci men Type: BLOOD SPECIMENOrdering Facility: [facility] Address: [address] [place] [address] Performed By: #### 2 4362-6 ####[facility] [id number] [place] [address] [place] Potassium [Moles/Vol] 4.0 mmol/L Normal 3.7-5.1 [facility] Comment on above: Order Comment: Speci men Type: BLOOD SPECIMENOrdering Facility: [facility] Address: [address] [place] [address] Performed By: #### 2 4362-6 ####[facility] LABIA [id number] [place] [address] [place] Sodium [Moles/Vol] 136 mmol/L Normal 136-144 [facility] Comment on above: Order Comment: Speci men Type: BLOOD SPECIMENOrdering Facility: [facility] Address: [address] [address] Performed By: #### 2 4362-6 ####[facility] LABIA [id number] [place] [address] [place] Urea nitrogen [Mass/Vol] 18 mg/dL Normal 7-21 [facility] Comment on above: Order Comment: Speci men Type: BLOOD SPECIMENOrdering Facility: [facility] Address: [address] [place] [address] Performed By: #### 2 4362-6 ####[facility] LABCLIA [id number] [place] [address] [place] THERAPY NTon 07-12-2022 THERAPY NT Normal [facility] ALLIED HEALTHon 07-11-2022 ALLIED HEALTH Normal [facility] CBC panel Auto (Bld)on 07-11 Erythrocyte distribution width (RBC) [Ratio] 13.5 % Normal 11.5-15.0 [facility] Comment on above: Order Comment: Speci men Type: BLOOD SPECIMENOrdering Facility: [facility] Address: [address] [place] [address] Performed By: #### 5 8410-2 ####[facility] LABCLIA [id number] [address] [place] Hematocrit (Bld) [Volume fraction] 30.1 % Low 36.0-46.0 [facility] Comment on above: Order Comment: Speci men Type: BLOOD SPECIMENOrdering Facility: [facility] Address: [address] [place] [address] Performed By: #### 5 8410-2 ####[facility] LABCLIA [id number] [place] [address] [place] Hemoglobin (Bld) [Mass/Vol] 10.0 g/dL Low 11.5-15.5 [facility] Comment on above: Order Comment: Speci men Type: BLOOD SPECIMENOrdering Facility: [facility] Address: [address] [place] [address] Performed By: #### 5 8410-2 ####[facility] LABCLIA [id number] [place] [address] [place] MCH (RBC) [Entitic mass] 30.6 pg Normal 26.0-34.0 [facility] Comment on above: Order Comment: Speci men Type: BLOOD SPECIMENOrdering Facility: [facility] Address: [address] [place], [place] [address] Performed By: #### 5 8410-2 ####[facility] LABCLIA [id number] [place] [address] [place] MCHC (RBC) [Mass/Vol] 33.2 g/dL Normal 30.5-36.0 [facility] Comment on above: Order Comment: Speci men Type: BLOOD SPECIMENOrdering Facility: [facility] Address: [address] [place] [address] Performed By: #### 5 8410-2 ####[facility] LABCLIA [id number] [place] [address] [place] MCV (RBC) [Entitic vol] 92.0 fL Normal 80.0-100.0 C [facility] Comment on above: Order Comment: Speci men Type: BLOOD SPECIMENOrdering Facility: [facility] Address: [address] [place], [place] [address] Performed By: #### 5 8410-2 ####[facility] LABCLIA [id number] [place] [address] [place] Nucleated RBC (Bld) [#/Vol] 10*3/uL Normal <0.01 [facility] Comment on above: Order Comment: Speci men Type: BLOOD SPECIMENOrdering Facility: [facility] Address: [address] [place], [place] [address] Performed By: #### 5 8410-2 ####[facility] LABCLIA [id number] [place] [address] [place] Platelet mean volume (Bld) [Entitic vol] 9.0 fL Normal 9.0-12.7 [facility] Comment on above: Order Comment: Speci men Type: BLOOD SPECIMENOrdering Facility: [facility] Address: [address] Performed By: #### 5 8410-2 ####[facility] LABIA [id number] [place] [address] [place] Platelets (Bld) [#/Vol] 546 10*3/uL High 150-400 [facility] Comment on above: Order Comment: Speci men Type: BLOOD SPECIMENOrdering Facility: [facility] Address: [address] [place] [address] Performed By: #### 5 8410-2 ####[facility] LABIA [id number] [place] [address] [place] RBC (Bld) [#/Vol] 3.27 10*6/uL Low 3.90-5.20 [facility] Comment on above: Order Comment: Speci men Type: BLOOD SPECIMENOrdering Facility: [facility] Address: [address] [place] [address] Performed By: #### 5 8410-2 ####[facility] LABIA [id number] [place] [address] [place] WBC (Bld) [#/Vol] 7.60 10*3/uL Normal 3.70-11.00 [facility] Comment on above: Order Comment: Speci men Type: BLOOD SPECIMENOrdering Facility: [facility] Address: [address] [place] [address] Performed By: #### 5 8410-2 ####[facility] LABIA [id number] [place] [address] [place] CONSULT PROGon 07-11-2022 CONSULT PROG Normal [facility] CONSULT PROG Normal [facility] NURSING PROGon 07-11-2022 NURSING PROG Normal [facility] NUTRITIONon 07-11-2022 NUTRITION Normal [facility] Renal function 2000 panelon 07-11-2022 Albumin [Mass/Vol] 3.3 g/dL Low 3.9-4.9 [facility] Comment on above: Order Comment: Speci men Type: BLOOD SPECIMENOrdering Facility: [facility] Address: [address] Performed By: #### 2 4362-6 ####[facility] LABCLIA [id number] [place] [address] [place] Anion gap [Moles/Vol] 10 mmol/L Normal 9-18 [facility] Comment on above: Order Comment: Speci men Type: BLOOD SPECIMENOrdering Facility: [facility] Address: [address] Performed By: #### 2 4362-6 ####[facility] LABCLIA [id number] [place] [address] [place] Calcium [Mass/Vol] 8.7 mg/dL Normal 8.5-10.2 [facility] Comment on above: Order Comment: Speci men Type: BLOOD SPECIMENOrdering Facility: [facility] Address: [address] Performed By: #### 2 4362-6 ####[facility] LABCLIA [id number] [place] [address] [place] Chloride [Moles/Vol] 109 mmol/L High 97-105 [facility] Comment on above: Order Comment: Speci men Type: BLOOD SPECIMENOrdering Facility: [facility] Address: [address] Performed By: #### 2 4362-6 ####[facility] LABCLIA [id number] [place] [address] [place] CO2 [Moles/Vol] 23 mmol/L Normal 22-30 [facility] Comment on above: Order Comment: Speci men Type: BLOOD SPECIMENOrdering Facility: [facility] Address: [address] Performed By: #### 2 4362-6 ####[facility] LABIA [id number] [place] [address] [place] Creatinine [Mass/Vol] 0.36 mg/dL Low 0.58-0.96 [facility] Comment on above: Order Comment: Speci men Type: BLOOD SPECIMENOrdering Facility: [facility] Address: [address] Performed By: #### 2 4362-6 ####[facility] LABIA [id number] [place] [address] [place] ESTIMATED GLOMERULAR FILTRATION RATE 119 mL/min/1.73m??? Normal >=60 [facility] Comment on above: Order Comment: Speci men Type: BLOOD SPECIMENOrdering Facility: [facility] Address: [address] [place] [address] Result Comment: Maritza mated Glomerular Filtration Rate (eGFR) is calculated using the 2020 CKD-EPI creatinine equation. This equation utilizes serum creatinine, sex, and age as parameters. The creatinine assay has traceable calibration to isotope dilution-mass spectrometry. Refer to KDIGO guidelines for clinical interpretation. In patients with unstable renal function, e.g. those with acute kidney injury, the eGFR may not accurately reflect actual GFR. Performed By: #### 2 4362-6 ####[facility] LABIA [id number] [place] [address] [place] Glucose [Mass/Vol] 255 mg/dL High 74-99 [facility] Comment on above: Order Comment: Speci men Type: BLOOD SPECIMENOrdering Facility: [facility] Address: [address] [place], [place] [address] Result Comment: The [place] [employer] (ADA) provides guidance for cutoff values for fasting glucose and random glucose. The ADA defines fasting as no caloric intake for at least 8 hours. Fasting plasma glucose results between 100 to 125 mg/dL indicate increased risk for diabetes (prediabetes).Fasting plasma glucose results greater than or equal to 126 mg/dL meet the criteria for diagnosis of diabetes. In the absence of unequivocal hyperglycemia, results should be confirmed by repeat testing. In a patient with classic symptoms of hyperglycemia or hyperglycemic crisis, random plasma glucose results greater than or equal to 200 mg/dL meet the criteria for diagnosis of diabetes.Reference: Standards of Medical Care in Diabetes 2016, [place] [employer]. Diabetes Care. 2016.39(Suppl 1). Performed By: #### 2 4362-6 ####[facility] LABIA [id number] [place] [address] [place] Phosphate [Mass/Vol] 2.4 mg/dL Low 2.7-4.8 [facility] Comment on above: Order Comment: Speci men Type: BLOOD SPECIMENOrdering Facility: [facility] Address: [address] [place] [address] Performed By: #### 2 4362-6 ####[facility] LABIA [id number] [place] [address] [place] Potassium [Moles/Vol] 3.8 mmol/L Normal 3.7-5.1 [facility] Comment on above: Order Comment: Radamesi men Type: BLOOD SPECIMENOrdering Facility: [facility] Address: [address] [place] [address] Performed By: #### 2 4362-6 ####[facility] LABIA [id number] [place] [address] [place] Sodium [Moles/Vol] 142 mmol/L Normal 136-144 [facility] Comment on above: Order Comment: Speci men Type: BLOOD SPECIMENOrdering Facility: [facility] Address: [address] [place] [address] Performed By: #### 2 4362-6 ####[facility] LABIA [id number] [place] [address] [place] Urea nitrogen [Mass/Vol] 15 mg/dL Normal 7-21 [facility] Comment on above: Order Comment: Speci men Type: BLOOD SPECIMENOrdering Facility: [facility] Address: [address] Performed By: #### 2 4362-6 ####[facility] [id number] [place] [address] [place] THERAPY NTon 07-11-2022 THERAPY NT Normal [facility] ANES POSTPROC EVALon 023 ANES POSTPROC EVAL Normal [facility] ANES PRE-OPon 07-10-2022 ANES PRE-OP Normal [facility] BRIEF OP NOTon 07-10-2022 BRIEF OP NOT Normal [facility] BRIEF OP NOT Normal [facility] CASE MANAGEMon 07-10-2022 CASE MANAGEM Normal [facility] CBC panel Auto (Bld)on 07-10 Erythrocyte distribution width (RBC) [Ratio] 14.1 % Normal 11.5-15.0 [facility] Comment on above: Order Comment: Speci men Type: BLOOD SPECIMENOrdering Facility: [facility] Address: [address] Performed By: #### 5 8410-2 ####[facility] [id number] [place] [address] [place] Hematocrit (Bld) [Volume fraction] 33.6 % Low 36.0-46.0 [facility] Comment on above: Order Comment: Speci men Type: BLOOD SPECIMENOrdering Facility: [facility] Address: [address] Performed By: #### 5 8410-2 ####[facility] LABIA [id number] [place] [address] [place] Hemoglobin (Bld) [Mass/Vol] 10.7 g/dL Low 11.5-15.5 [facility] Comment on above: Order Comment: Speci men Type: BLOOD SPECIMENOrdering Facility: [facility] Address: [address] Performed By: #### 5 8410-2 ####[facility] [id number] [address] [place] [facility] MCH (RBC) [Entitic mass] 30.1 pg Normal 26.0-34.0 [facility] Comment on above: Order Comment: Speci men Type: BLOOD SPECIMENOrdering Facility: [facility] Address: [address] [place], [place] [address] Performed By: #### 5 8410-2 ####[facility] [id number] [address] [place] MCHC (RBC) [Mass/Vol] 31.8 g/dL Normal 30.5-36.0 [facility] Comment on above: Order Comment: Speci men Type: BLOOD SPECIMENOrdering Facility: [facility] Address: [address] [place], [place] [address] Performed By: #### 5 8410-2 ####[facility] [id number] [address] [place] [facility] MCV (RBC) [Entitic vol] 94.4 fL Normal 80.0-100.0 C [facility] Comment on above: Order Comment: Speci men Type: BLOOD SPECIMENOrdering Facility: [facility] Address: [address] [place] [address] Performed By: #### 5 8410-2 ####[facility] [id number] [address] [place] Nucleated RBC (Bld) [#/Vol] 10*3/uL Normal <0.01 [facility] Comment on above: Order Comment: Speci men Type: BLOOD SPECIMENOrdering Facility: [facility] Address: [address] [place] [address] Performed By: #### 5 8410-2 ####[facility] [id number] [address] [id number] [address] [place] Platelet mean volume (Bld) [Entitic vol] 9.1 fL Normal 9.0-12.7 [facility] Comment on above: Order Comment: Speci men Type: BLOOD SPECIMENOrdering Facility: [facility] Address: [address] [place] [address] Performed By: #### 5 8410-2 ####[facility] LABCLIA [id number] [place] [address] [place] Platelets (Bld) [#/Vol] 604 10*3/uL High 150-400 [facility] Comment on above: Order Comment: Speci men Type: BLOOD SPECIMENOrdering Facility: [facility] Address: [address] [place] [address] Performed By: #### 5 8410-2 ####[facility] LABCLIA [id number] [place] [address] [place] RBC (Bld) [#/Vol] 3.56 10*6/uL Low 3.90-5.20 [facility] Comment on above: Order Comment: Speci men Type: BLOOD SPECIMENOrdering Facility: [facility] Address: [address] [place], [place] [address] Performed By: #### 5 8410-2 ####[facility] LABIA [id number] [place] [address] [place] WBC (Bld) [#/Vol] 5.08 10*3/uL Normal 3.70-11.00 [facility] Comment on above: Order Comment: Speci men Type: BLOOD SPECIMENOrdering Facility: [facility] Address: [address] [place], [place] [address] Performed By: #### 5 8410-2 ####[facility] LABCLIA [id number] [place] [address] [place] CONSULT PROGon 07-10-2022 CONSULT PROG Normal [facility] CT BRAIN WO IVCONon 07-11-19 CT BRAIN WO IVCON Normal [facility] NURSING PROGon 07-10-2022 NURSING PROG Normal [facility] OPERATIVE NOon 07-10-2022 OPERATIVE NO Normal [facility] Renal function 2000 panelon 07-10-2022 Albumin [Mass/Vol] 3.2 g/dL Low 3.9-4.9 [facility] Comment on above: Order Comment: Speci men Type: BLOOD SPECIMENOrdering Facility: [facility] Address: [address] Performed By: #### 2 4362-6 ####[facility] LABCLIA [id number] [place] [address] [place] Anion gap [Moles/Vol] 9 mmol/L Normal 9-18 [facility] Comment on above: Order Comment: Speci men Type: BLOOD SPECIMENOrdering Facility: [facility] Address: [address] [address] Performed By: #### 2 4362-6 ####[facility] LABCLIA [id number] [place] [address] [place] Calcium [Mass/Vol] 9.0 mg/dL Normal 8.5-10.2 [facility] Comment on above: Order Comment: Speci men Type: BLOOD SPECIMENOrdering Facility: [facility] Address: [address] Performed By: #### 2 4362-6 ####[facility] LABCLIA [id number] [facility] [place] [address] [place] Chloride [Moles/Vol] 106 mmol/L High 97-105 [facility] Comment on above: Order Comment: Speci men Type: BLOOD SPECIMENOrdering Facility: [facility] Address: [address] Performed By: #### 2 4362-6 ####[facility] LABCLIA [id number] [place] [address] [place] CO2 [Moles/Vol] 24 mmol/L Normal 22-30 [facility] Comment on above: Order Comment: Speci men Type: BLOOD SPECIMENOrdering Facility: [facility] Address: [address] [place] [address] Performed By: #### 2 4362-6 ####[facility] LABCLIA [id number] [place] [address] [place] Creatinine [Mass/Vol] 0.50 mg/dL Low 0.58-0.96 [facility] Comment on above: Order Comment: Speci men Type: BLOOD SPECIMENOrdering Facility: [facility] Address: [address] [place] [address] Performed By: #### 2 4362-6 ####[facility] LABIA [id number] [address] [place] ESTIMATED GLOMERULAR FILTRATION RATE 110 mL/min/1.73m??? Normal >=60 [facility] Comment on above: Order Comment: Speci men Type: BLOOD SPECIMENOrdering Facility: [facility] Address: [address] [place] [address] Result Comment: Maritza mated Glomerular Filtration Rate (eGFR) is calculated using the 2020 CKD-EPI creatinine equation. This equation utilizes serum creatinine, sex, and age as parameters. The creatinine assay has traceable calibration to isotope dilution-mass spectrometry. Refer to KDIGO guidelines for clinical interpretation. In patients with unstable renal function, e.g. those with acute kidney injury, the eGFR may not accurately reflect actual GFR. Performed By: #### 2 4362-6 ####[facility] LABCLIA [id number] [place] [address] [place] Glucose [Mass/Vol] 246 mg/dL High 74-99 [facility] Comment on above: Order Comment: Speci men Type: BLOOD SPECIMENOrdering Facility: [facility] Address: [address] [place] [address] Result Comment: The [place] [employer] (ADA) provides guidance for cutoff values for fasting glucose and random glucose. The ADA defines fasting as no caloric intake for at least 8 hours. Fasting plasma glucose results between 100 to 125 mg/dL indicate increased risk for diabetes (prediabetes).Fasting plasma glucose results greater than or equal to 126 mg/dL meet the criteria for diagnosis of diabetes. In the absence of unequivocal hyperglycemia, results should be confirmed by repeat testing. In a patient with classic symptoms of hyperglycemia or hyperglycemic crisis, random plasma glucose results greater than or equal to 200 mg/dL meet the criteria for diagnosis of diabetes.Reference: Standards of Medical Care in Diabetes 2016, [place] [employer]. Diabetes Care. 2016.39(Suppl 1). Performed By: #### 2 4362-6 ####[facility] [id number] [place] [address] [place] Phosphate [Mass/Vol] 2.8 mg/dL Normal 2.7-4.8 [facility] Comment on above: Order Comment: Speci men Type: BLOOD SPECIMENOrdering Facility: [facility] Address: [address] [place] [address] Performed By: #### 2 4362-6 ####[facility] [id number] [place] [address] [place] Potassium [Moles/Vol] 4.0 mmol/L Normal 3.7-5.1 [facility] Comment on above: Order Comment: Speci men Type: BLOOD SPECIMENOrdering Facility: [facility] Address: [address] [place], [place] Performed By: #### 2 4362-6 ####[facility] LABIA [id number] [place] [address] [place] Sodium [Moles/Vol] 139 mmol/L Normal 136-144 [facility] Comment on above: Order Comment: Speci men Type: BLOOD SPECIMENOrdering Facility: [facility] Address: [address] [place], [place] Performed By: #### 2 4362-6 ####[facility] LABCLIA [id number] [place] [address] [place] Urea nitrogen [Mass/Vol] 27 mg/dL High 7-21 [facility] Comment on above: Order Comment: Speci men Type: BLOOD SPECIMENOrdering Facility: [facility] Address: [address] [place] [address] Performed By: #### 2 4362-6 ####[facility] LABIA [id number] [place] [id number] [place] THERAPY NTon 07-10-2022 THERAPY NT Normal [facility] THERAPY NT Normal [facility] XR TYPEWRITER TESTER SHUNT SERIES 5V -NBon 07-10-2022 XR TYPEWRITER TESTER SHUNT SERIES 5V -NB Normal [facility] CBC panel Auto (Bld)on 07-09 Erythrocyte distribution width (RBC) [Ratio] 14.1 % Normal 11.5-15.0 [facility] Comment on above: Order Comment: Speci men Type: BLOOD SPECIMENOrdering Facility: [facility] Address: [address] [place] [address] Performed By: #### 5 8410-2 ####[facility] [id number] [place] [address] [place] Hematocrit (Bld) [Volume fraction] 34.3 % Low 36.0-46.0 [facility] Comment on above: Order Comment: Speci men Type: BLOOD SPECIMENOrdering Facility: [facility] Address: [address] [place] [id number] Performed By: #### 5 8410-2 ####[facility] [id number] [place] [address] [place] Hemoglobin (Bld) [Mass/Vol] 11.0 g/dL Low 11.5-15.5 [facility] Comment on above: Order Comment: Speci men Type: BLOOD SPECIMENOrdering Facility: [facility] Address: [address] Performed By: #### 5 8410-2 ####[facility] LABIA [id number] [address] MCH (RBC) [Entitic mass] 30.1 pg Normal 26.0-34.0 [facility] Comment on above: Order Comment: Speci men Type: BLOOD SPECIMENOrdering Facility: [facility] Address: [address] Performed By: #### 5 8410-2 ####[facility] [id number] [address] OF [facility] MCHC (RBC) [Mass/Vol] 32.1 g/dL Normal 30.5-36.0 [facility] Comment on above: Order Comment: Speci men Type: BLOOD SPECIMENOrdering Facility: [facility] Address: [address] Performed By: #### 5 8410-2 ####[facility] [id number] [address] [place] MCV (RBC) [Entitic vol] 94.0 fL Normal 80.0-100.0 C [facility] Comment on above: Order Comment: Speci men Type: BLOOD SPECIMENOrdering Facility: [facility] Address: [address] Performed By: #### 5 8410-2 ####[facility] LABIA [id number] [address] [place] Nucleated RBC (Bld) [#/Vol] 10*3/uL Normal <0.01 [facility] Comment on above: Order Comment: Speci men Type: BLOOD SPECIMENOrdering Facility: [facility] Address: [address] Performed By: #### 5 8410-2 ####[facility] LABIA [id number] [place] [address] [place] Platelet mean volume (Bld) [Entitic vol] 9.0 fL Normal 9.0-12.7 [facility] Comment on above: Order Comment: Speci men Type: BLOOD SPECIMENOrdering Facility: [facility] Address: [address] [place] [address] Performed By: #### 5 8410-2 ####[facility] LABCLIA [id number] [place] [address] [place] Platelets (Bld) [#/Vol] 552 10*3/uL High 150-400 [facility] Comment on above: Order Comment: Speci men Type: BLOOD SPECIMENOrdering Facility: [facility] Address: [address] [place] [address] Performed By: #### 5 8410-2 ####[facility] LABCLIA [id number] [place] [address] [place] RBC (Bld) [#/Vol] 3.65 10*6/uL Low 3.90-5.20 [facility] Comment on above: Order Comment: Speci men Type: BLOOD SPECIMENOrdering Facility: [facility] Address: [address] [place], [place] [address] Performed By: #### 5 8410-2 ####[facility] LABCLIA [id number] [place] [address] [place] WBC (Bld) [#/Vol] 4.58 10*3/uL Normal 3.70-11.00 [facility] Comment on above: Order Comment: Speci men Type: BLOOD SPECIMENOrdering Facility: [facility] Address: [address] [place], [place] [address] Performed By: #### 5 8410-2 ####[facility] LABCLIA [id number] [place] [address] [place] CT BRAIN STEREOLOCAL WO IVCO Non 07-09-2022 CT BRAIN STEREOLOCAL WO IVCON Normal [facility] NURSING PROGon 07-09-2022 NURSING PROG Normal [facility] NURSING PROG Normal [facility] PT panel Coag (PPP)on 2022 INR Coag (PPP) [Relative time] {INR} Low 0.9-1.3 [facility] Comment on above: Order Comment: Patrick hill Type: BLOOD SPECIMENOrdering Facility: [facility] Address: [address] [id number] Result Comment: Jessica min K Antagonist (VKA) Therapeutic Range: INR 2 to 3 (Target INR of 2.5)Note: For patients treated with VKA drugs, such as warfarin, the [place] [employer] 2012 Guideline recommends a therapeutic INR range of 2 to 3 (target INR of 2.5). This recommendation includes high-risk patients with antiphospholipid syndrome with previous arterial or venous thromboembolism, current-generation mechanical or bioprosthetic aortic heart valve replacement.Note: Patients with mechanical aortic valve replacement and additional risk factors for thromboembolic events (atrial fibrillation, previous thromboembolism, LV dysfunction, hypercoagulable conditions) or an older generation mechanical AVR (i.e., ball in-Cage) or any mechanical MVR should have a INR therapeutic range of 2.5 to 3.5 (target INR of 3).Rebecca GH, et al. Chest 2012, 141:7S-47SPeter RA, et al. [facility] 2017, 70: 252-289Sample checked for clot.Result rechecked. Performed By: #### 1 4979-9, 63830-1 ####[facility] LABCLIA [id number] [facility] [id number] [place] PT Coag (PPP) [Time] 9.3 s Low 9.7-13.0 [facility] Comment on above: Order Comment: Patrikc hill Type: BLOOD SPECIMENOrdering Facility: [facility] Address: [address] [place] [address] Performed By: #### 1 4979-9, 24748-0 ####[facility] LABCLIA [id number] [place] [address] [place] Renal function 2000 panelon 07-09-2022 Albumin [Mass/Vol] 3.2 g/dL Low 3.9-4.9 [facility] Comment on above: Order Comment: Speci men Type: BLOOD SPECIMENOrdering Facility: [facility] Address: [address] [place] [address] Performed By: #### 2 4362-6 ####[facility] LABCLIA [id number] [place] [address] [place] Anion gap [Moles/Vol] 7 mmol/L Low 9-18 [facility] Comment on above: Order Comment: Speci men Type: BLOOD SPECIMENOrdering Facility: [facility] Address: [address] [place] [address] Performed By: #### 2 4362-6 ####[facility] LABCLIA [id number] [place] [address] [place] Calcium [Mass/Vol] 9.1 mg/dL Normal 8.5-10.2 [facility] Comment on above: Order Comment: Speci men Type: BLOOD SPECIMENOrdering Facility: [facility] Address: [address] [place], [place] [address] Performed By: #### 2 4362-6 ####[facility] LABCLIA [id number] [place] [address] [place] Chloride [Moles/Vol] 108 mmol/L High 97-105 [facility] Comment on above: Order Comment: Speci men Type: BLOOD SPECIMENOrdering Facility: [facility] Address: [address] [place], [place] [address] Performed By: #### 2 4362-6 ####[facility] LABCLIA [id number] [place] [address] [place] CO2 [Moles/Vol] 25 mmol/L Normal 22-30 [facility] Comment on above: Order Comment: Speci men Type: BLOOD SPECIMENOrdering Facility: [facility] Address: [address] [place] [address] Performed By: #### 2 4362-6 ####[facility] LABIA [id number] [place] [address] [place] Creatinine [Mass/Vol] 0.44 mg/dL Low 0.58-0.96 [facility] Comment on above: Order Comment: Speci men Type: BLOOD SPECIMENOrdering Facility: [facility] Address: [address] [place] [address] Performed By: #### 2 4362-6 ####[facility] LABIA [id number] [address] STATES OF [facility] ESTIMATED GLOMERULAR FILTRATION RATE 114 mL/min/1.73m??? Normal >=60 [facility] Comment on above: Order Comment: Speci men Type: BLOOD SPECIMENOrdering Facility: [facility] Address: [address] [place] [address] Result Comment: Maritza mated Glomerular Filtration Rate (eGFR) is calculated using the 2020 CKD-EPI creatinine equation. This equation utilizes serum creatinine, sex, and age as parameters. The creatinine assay has traceable calibration to isotope dilution-mass spectrometry. Refer to KDIGO guidelines for clinical interpretation. In patients with unstable renal function, e.g. those with acute kidney injury, the eGFR may not accurately reflect actual GFR. Performed By: #### 2 4362-6 ####[facility] LABIA [id number] [place] [address] [place] Glucose [Mass/Vol] 67 mg/dL Low 74-99 [facility] Comment on above: Order Comment: Speci men Type: BLOOD SPECIMENOrdering Facility: [facility] Address: [address] [place] [address] Result Comment: The [place] [employer] (ADA) provides guidance for cutoff values for fasting glucose and random glucose. The ADA defines fasting as no caloric intake for at least 8 hours. Fasting plasma glucose results between 100 to 125 mg/dL indicate increased risk for diabetes (prediabetes).Fasting plasma glucose results greater than or equal to 126 mg/dL meet the criteria for diagnosis of diabetes. In the absence of unequivocal hyperglycemia, results should be confirmed by repeat testing. In a patient with classic symptoms of hyperglycemia or hyperglycemic crisis, random plasma glucose results greater than or equal to 200 mg/dL meet the criteria for diagnosis of diabetes.Reference: Standards of Medical Care in Diabetes 2016, [place] [employer]. Diabetes Care. 2016.39(Suppl 1). Performed By: #### 2 4362-6 ####[facility] LABIA [id number] [place] [address] [place] Phosphate [Mass/Vol] 3.6 mg/dL Normal 2.7-4.8 [facility] Comment on above: Order Comment: Speci men Type: BLOOD SPECIMENOrdering Facility: [facility] Address: [address] [place] [address] Performed By: #### 2 4362-6 ####[facility] LABIA [id number] [place] [address] [place] Potassium [Moles/Vol] 4.7 mmol/L Normal 3.7-5.1 [facility] Comment on above: Order Comment: Speci men Type: BLOOD SPECIMENOrdering Facility: [facility] Address: [address] [place] [address] Performed By: #### 2 4362-6 ####[facility] LABIA [id number] [place] [address] [place] Sodium [Moles/Vol] 140 mmol/L Normal 136-144 [facility] Comment on above: Order Comment: Speci men Type: BLOOD SPECIMENOrdering Facility: [facility] Address: [address] [place] [address] Performed By: #### 2 4362-6 ####[facility] LABIA [id number] [place] [address] [place] Urea nitrogen [Mass/Vol] 21 mg/dL Normal 7-21 [facility] Comment on above: Order Comment: Speci men Type: BLOOD SPECIMENOrdering Facility: [facility] Address: [address] [place], [place] [address] Performed By: #### 2 4362-6 ####[facility] LABCLIA [id number] [place] [address] [place] TYPE + SCREENon 07-09-2022 ABO A Normal [facility] Comment on above: Order Comment: Speci men Type: BLOOD SPECIMENOrdering Facility: [facility] Address: [address] [place] [address] Performed By: #### T SCR ####CC MAIN BLOOD BANKCLIA [id number] [address] [place] HISTORICAL AB SCR STATUS Negative Normal [facility] Comment on above: Order Comment: Speci men Type: BLOOD SPECIMENOrdering Facility: [facility] Address: [address] [place], [place] [address] Performed By: #### T SCR ####CC [facility] BLOOD BANKCLIA [id number] [place] [address] [place] Rh Nom (Bld) Positive Normal [facility] Comment on above: Order Comment: Speci men Type: BLOOD SPECIMENOrdering Facility: [facility] Address: [address] [place], [place] [address] Performed By: #### T SCR ####CC MA[facility] BLOOD BANKCLIA [id number] [place] [address] [place] TYPE AND SCREEN EXPIRATION 07/12/2022 23:59 Normal [facility] Comment on above: Order Comment: Speci men Type: BLOOD SPECIMENOrdering Facility: [facility] Address: [address] [place], [place] [address] Performed By: #### T SCR ####CC MAIN BLOOD BANKCLIA [id number] [place] [facility] aPTT PPPon 07-09-2022 aPTT Coag (PPP) [Time] 22.6 s Low 23.0-32.[address] [facility] Comment on above: Order Comment: Speci men Type: BLOOD SPECIMENOrdering Facility: [facility] Address: [address] [place] [address] Performed By: #### 1 4979-9, 21831-8 ####[facility] LABIA [id number] [place] [address] [place] CBC panel Auto (Bld)on 07-08 Erythrocyte distribution width (RBC) [Ratio] 13.8 % Normal 11.5-15.0 [facility] Comment on above: Order Comment: Speci men Type: BLOOD SPECIMENOrdering Facility: [facility] Address: [address] [place] [address] Performed By: #### 5 8410-2 ####[facility] LABIA [id number] [address] [place] Hematocrit (Bld) [Volume fraction] 31.0 % Low 36.0-46.0 [facility] Comment on above: Order Comment: Speci men Type: BLOOD SPECIMENOrdering Facility: [facility] Address: [address] [place] [address] Performed By: #### 5 8410-2 ####[facility] LABIA [id number] [place] [address] [place] Hemoglobin (Bld) [Mass/Vol] 10.3 g/dL Low 11.5-15.5 [facility] Comment on above: Order Comment: Speci men Type: BLOOD SPECIMENOrdering Facility: [facility] Address: [address] [place] [address] Performed By: #### 5 8410-2 ####[facility] LABIA [id number] [place] [address] [place] MCH (RBC) [Entitic mass] 30.7 pg Normal 26.0-34.0 [facility] Comment on above: Order Comment: Speci men Type: BLOOD SPECIMENOrdering Facility: [facility] Address: [address] [place], [place] [address] Performed By: #### 5 8410-2 ####[facility] LABCLIA [id number] [address] [place] MCHC (RBC) [Mass/Vol] 33.2 g/dL Normal 30.5-36.0 [facility] Comment on above: Order Comment: Speci men Type: BLOOD SPECIMENOrdering Facility: [facility] Address: [address] [place] [address] Performed By: #### 5 8410-2 ####[facility] LABCLIA [id number] [address] [place] MCV (RBC) [Entitic vol] 92.3 fL Normal 80.0-100.0 C [facility] Comment on above: Order Comment: Speci men Type: BLOOD SPECIMENOrdering Facility: [facility] Address: [address] [place], [place] [address] Performed By: #### 5 8410-2 ####[facility] LABCLIA [id number] [address] [place] Nucleated RBC (Bld) [#/Vol] 10*3/uL Normal <0.01 [facility] Comment on above: Order Comment: Speci men Type: BLOOD SPECIMENOrdering Facility: [facility] Address: [address] [place], [place] [address] Performed By: #### 5 8410-2 ####[facility] LABCLIA [id number] [address] [place] Platelet mean volume (Bld) [Entitic vol] 9.3 fL Normal 9.0-12.7 [facility] Comment on above: Order Comment: Speci men Type: BLOOD SPECIMENOrdering Facility: [facility] Address: [address] [place] [address] Performed By: #### 5 8410-2 ####[facility] LABCLIA [id number] [address] [place] Platelets (Bld) [#/Vol] 545 10*3/uL High 150-400 [facility] Comment on above: Order Comment: Speci men Type: BLOOD SPECIMENOrdering Facility: [facility] Address: [address] [place] [address] Performed By: #### 5 8410-2 ####[facility] LABIA [id number] [address] [place] RBC (Bld) [#/Vol] 3.36 10*6/uL Low 3.90-5.20 [facility] Comment on above: Order Comment: Speci men Type: BLOOD SPECIMENOrdering Facility: [facility] Address: [address] [place] [address] Performed By: #### 5 8410-2 ####[facility] LABIA [id number] [address] WBC (Bld) [#/Vol] 5.23 10*3/uL Normal 3.70-11.00 [facility] Comment on above: Order Comment: Speci men Type: BLOOD SPECIMENOrdering Facility: [facility] Address: [address] [place] [address] Performed By: #### 5 8410-2 ####[facility] LABCLIA [id number] [place] [address] [place] CRYPTOCOCCUS AG DETon 2022 CRYPTOCOCCUS AG DET CRYPTOCOCCAL AG RESU LT: Cryptococcal Antigen NOT DETECTED by line flow immunoassay Normal [facility] Comment on above: Performed By: #### L [id number], FUNCSF ####[facility] LABCLIA [id number] [place] [address] [place] FUNGAL CSF CULT/CADon 2022 FUNGAL CSF CULT/CAD CULTURE, FUNGAL: No Fungus isolated after 28 days Normal [facility] Comment on above: Performed By: #### L [id number], FUNCSF ####[facility] LABCLIA [id number] [place] [address] [place] NURSING PROGon 07-08-2022 NURSING PROG Normal [facility] Renal function 2000 panelon 07-08-2022 Albumin [Mass/Vol] 3.1 g/dL Low 3.9-4.9 [facility] Comment on above: Order Comment: Speci men Type: BLOOD SPECIMENOrdering Facility: [facility] Address: [address] [place] [address] Performed By: #### 2 4362-6 ####[facility] LABCLIA [id number] [place] [address] [place] Anion gap [Moles/Vol] 10 mmol/L Normal 9-18 [facility] Comment on above: Order Comment: Speci men Type: BLOOD SPECIMENOrdering Facility: [facility] Address: [address] [place] [address] Performed By: #### 2 4362-6 ####[facility] LABCLIA [id number] [place] [address] [place] Calcium [Mass/Vol] 8.9 mg/dL Normal 8.5-10.2 [facility] Comment on above: Order Comment: Speci men Type: BLOOD SPECIMENOrdering Facility: [facility] Address: [address] [place], [place] [address] Performed By: #### 2 4362-6 ####[facility] LABCLIA [id number] [place] [id number] [place] Chloride [Moles/Vol] 108 mmol/L High 97-105 [facility] Comment on above: Order Comment: Speci men Type: BLOOD SPECIMENOrdering Facility: [facility] Address: [address] [place] [address] Performed By: #### 2 4362-6 ####[facility] LABCLIA [id number] [place] [address] [place] CO2 [Moles/Vol] 22 mmol/L Normal 22-30 [facility] Comment on above: Order Comment: Speci men Type: BLOOD SPECIMENOrdering Facility: [facility] Address: [address] [place] [address] Performed By: #### 2 4362-6 ####[facility] LABIA [id number] [address] Creatinine [Mass/Vol] 0.57 mg/dL Low 0.58-0.96 [facility] Comment on above: Order Comment: Speci men Type: BLOOD SPECIMENOrdering Facility: [facility] Address: [address] [place] [address] Performed By: #### 2 4362-6 ####[facility] LABIA [id number] [address] ESTIMATED GLOMERULAR FILTRATION RATE 107 mL/min/1.73m??? Normal >=60 [facility] Comment on above: Order Comment: Speci men Type: BLOOD SPECIMENOrdering Facility: [facility] Address: [address] [place] [address] Result Comment: Maritza mated Glomerular Filtration Rate (eGFR) is calculated using the 2020 CKD-EPI creatinine equation. This equation utilizes serum creatinine, sex, and age as parameters. The creatinine assay has traceable calibration to isotope dilution-mass spectrometry. Refer to KDIGO guidelines for clinical interpretation. In patients with unstable renal function, e.g. those with acute kidney injury, the eGFR may not accurately reflect actual GFR. Performed By: #### 2 4362-6 ####[facility] LABCLIA [id number] [place] [address] [place] Glucose [Mass/Vol] 107 mg/dL High 74-99 [facility] Comment on above: Order Comment: Speci men Type: BLOOD SPECIMENOrdering Facility: [facility] Address: [address] [place] [address] Result Comment: The [place] Diabetes [employer] (ADA) provides guidance for cutoff values for fasting glucose and random glucose. The ADA defines fasting as no caloric intake for at least 8 hours. Fasting plasma glucose results between 100 to 125 mg/dL indicate increased risk for diabetes (prediabetes).Fasting plasma glucose results greater than or equal to 126 mg/dL meet the criteria for diagnosis of diabetes. In the absence of unequivocal hyperglycemia, results should be confirmed by repeat testing. In a patient with classic symptoms of hyperglycemia or hyperglycemic crisis, random plasma glucose results greater than or equal to 200 mg/dL meet the criteria for diagnosis of diabetes.Reference: Standards of Medical Care in Diabetes 2016, [place] [employer]. Diabetes Care. 2016.39(Suppl 1). Performed By: #### 2 4362-6 ####[facility] LABCLIA [id number] [place] [address] [place] Phosphate [Mass/Vol] 3.7 mg/dL Normal 2.7-4.8 [facility] Comment on above: Order Comment: Speci men Type: BLOOD SPECIMENOrdering Facility: [facility] Address: [address] [place] [address] Performed By: #### 2 4362-6 ####[facility] LABCLIA [id number] [place] [address] [place] Potassium [Moles/Vol] 4.2 mmol/L Normal 3.7-5.1 [facility] Comment on above: Order Comment: Speci men Type: BLOOD SPECIMENOrdering Facility: [facility] Address: [address] [place] [address] Performed By: #### 2 4362-6 ####[facility] LABCLIA [id number] [place] [address] [place] Sodium [Moles/Vol] 140 mmol/L Normal 136-144 [facility] Comment on above: Order Comment: Speci men Type: BLOOD SPECIMENOrdering Facility: [facility] Address: [address] [id number] Performed By: #### 2 4362-6 ####[facility] LABCLIA [id number] [place] [address] [place] Urea nitrogen [Mass/Vol] 17 mg/dL Normal 7-21 [facility] Comment on above: Order Comment: Speci men Type: BLOOD SPECIMENOrdering Facility: [facility] Address: [address] Performed By: #### 2 4362-6 ####[facility] LABCLIA [id number] [place] [address] [place] ALLIED HEALTHon 07-07-2022 ALLIED HEALTH Normal [facility] ANES POSTPROC EVALon 023 ANES POSTPROC EVAL Normal [facility] ANES PRE-OPon 07-07-2022 ANES PRE-OP Normal [facility] CASE MANAGEMon 07-07-2022 CASE MANAGEM Normal [facility] CBC panel Auto (Bld)on 07-07 Erythrocyte distribution width (RBC) [Ratio] 14.0 % Normal 11.5-15.0 [facility] Comment on above: Order Comment: Speci men Type: BLOOD SPECIMENOrdering Facility: [facility] Address: [address] [place], [place] Performed By: #### 5 8410-2 ####[facility] LABCLIA [id number] [place] [address] [place] Hematocrit (Bld) [Volume fraction] 32.9 % Low 36.0-46.0 [facility] Comment on above: Order Comment: Speci men Type: BLOOD SPECIMENOrdering Facility: [facility] Address: [address] [place] [address] Performed By: #### 5 8410-2 ####[facility] LABIA [id number] [place] [address] [place] Hemoglobin (Bld) [Mass/Vol] 11.0 g/dL Low 11.5-15.5 [facility] Comment on above: Order Comment: Speci men Type: BLOOD SPECIMENOrdering Facility: [facility] Address: [address] [place], [place] [address] Performed By: #### 5 8410-2 ####[facility] LABSPRING[facility] [id number] [address] [place] MCH (RBC) [Entitic mass] 30.8 pg Normal 26.0-34.0 [facility] Comment on above: Order Comment: Speci men Type: BLOOD SPECIMENOrdering Facility: [facility] Address: [address] [place], [place] [id number] Performed By: #### 5 8410-2 ####[facility] [id number] [address] [place] MCHC (RBC) [Mass/Vol] 33.4 g/dL Normal 30.5-36.0 [facility] Comment on above: Order Comment: Speci men Type: BLOOD SPECIMENOrdering Facility: [facility] Address: [address] [place], [place] [address] Performed By: #### 5 8410-2 ####[facility] LABIA [id number] [address] [place] MCV (RBC) [Entitic vol] 92.2 fL Normal 80.0-100.0 C [facility] Comment on above: Order Comment: Speci men Type: BLOOD SPECIMENOrdering Facility: [facility] Address: [address] [place], [place] [address] Performed By: #### 5 8410-2 ####[facility] LABIA [id number] [place] [address] [place] Nucleated RBC (Bld) [#/Vol] 10*3/uL Normal <0.01 [facility] Comment on above: Order Comment: Speci men Type: BLOOD SPECIMENOrdering Facility: [facility] Address: [address] [place], [place] [address] Performed By: #### 5 8410-2 ####[facility] LABIA [id number] [place] [address] [place] Platelet mean volume (Bld) [Entitic vol] 9.2 fL Normal 9.0-12.7 [facility] Comment on above: Order Comment: Speci men Type: BLOOD SPECIMENOrdering Facility: [facility] Address: [address] [place] [address] Performed By: #### 5 8410-2 ####[facility] LABCLIA [id number] [place] [address] [place] Platelets (Bld) [#/Vol] 524 10*3/uL High 150-400 [facility] Comment on above: Order Comment: Speci men Type: BLOOD SPECIMENOrdering Facility: [facility] Address: [address] [place], [place] [address] Performed By: #### 5 8410-2 ####[facility] LABIA [id number] [place] [address] [place] RBC (Bld) [#/Vol] 3.57 10*6/uL Low 3.90-5.20 [facility] Comment on above: Order Comment: Speci men Type: BLOOD SPECIMENOrdering Facility: [facility] Address: [address] [place], [place] [address] Performed By: #### 5 8410-2 ####[facility] LABCLIA [id number] [place] [address] [place] WBC (Bld) [#/Vol] 5.46 10*3/uL Normal 3.70-11.00 [facility] Comment on above: Order Comment: Speci men Type: BLOOD SPECIMENOrdering Facility: [facility] Address: [address] [place], [place] [address] Performed By: #### 5 8410-2 ####[facility] LABCLIA [id number] [place] [address] [place] CONSULT PROGon 07-07-2022 CONSULT PROG Normal [facility] MRI BRAIN WO/W IVCONon 07-07 MRI BRAIN WO/W IVCON Normal [facility] MRI CERVICAL SPINE WO/W IVCO Non 07-07-2022 MRI CERVICAL SPINE WO/W IVCON Normal [facility] MRI LUMBAR SPINE WO/W IVCONo n 07-07-2022 MRI LUMBAR SPINE WO/W IVCON Normal [facility] MRI THORACIC SPINE WO/W IVCO Non 07-07-2022 MRI THORACIC SPINE WO/W IVCON Normal [facility] NURSING PROGon 07-07-2022 NURSING PROG Normal [facility] NUTRITIONon 07-07-2022 NUTRITION Normal [facility] Renal function 2000 panelon 07-07-2022 Albumin [Mass/Vol] 3.3 g/dL Low 3.9-4.9 [facility] Comment on above: Order Comment: Speci men Type: BLOOD SPECIMENOrdering Facility: [facility] Address: [address] [place] [id number] Performed By: #### 2 4362-6 ####[facility] LABCLIA [id number] [place] [address] [place] Anion gap [Moles/Vol] 10 mmol/L Normal 9-18 [facility] Comment on above: Order Comment: Speci men Type: BLOOD SPECIMENOrdering Facility: [facility] Address: [address] [place], [place] [address] Performed By: #### 2 4362-6 ####[facility] LABCLIA [id number] [place] [address] [place] Calcium [Mass/Vol] 9.1 mg/dL Normal 8.5-10.2 [facility] Comment on above: Order Comment: Speci men Type: BLOOD SPECIMENOrdering Facility: [facility] Address: [address] [place], [place] [address] Performed By: #### 2 4362-6 ####[facility] LABCLIA [id number] [place] [address] [place] Chloride [Moles/Vol] 111 mmol/L High 97-105 [facility] Comment on above: Order Comment: Speci men Type: BLOOD SPECIMENOrdering Facility: [facility] Address: [address] [place], [place] [address] Performed By: #### 2 4362-6 ####[facility] LABCLIA [id number] [place] [address] [place] CO2 [Moles/Vol] 21 mmol/L Low 22-30 [facility] Comment on above: Order Comment: Speci men Type: BLOOD SPECIMENOrdering Facility: [facility] Address: [address] [place], [place] [address] Performed By: #### 2 4362-6 ####[facility] LABCLIA [id number] [place] [address] [place] Creatinine [Mass/Vol] 0.40 mg/dL Low 0.58-0.96 [facility] Comment on above: Order Comment: Speci men Type: BLOOD SPECIMENOrdering Facility: [facility] Address: [address] [place], [place] [address] Performed By: #### 2 4362-6 ####[facility] LABCLIA [id number] [place] [address] [place] ESTIMATED GLOMERULAR FILTRATION RATE 116 mL/min/1.73m??? Normal >=60 [facility] Comment on above: Order Comment: Speci men Type: BLOOD SPECIMENOrdering Facility: [facility] Address: [address] [address] Result Comment: Maritza mated Glomerular Filtration Rate (eGFR) is calculated using the 2020 CKD-EPI creatinine equation. This equation utilizes serum creatinine, sex, and age as parameters. The creatinine assay has traceable calibration to isotope dilution-mass spectrometry. Refer to KDIGO guidelines for clinical interpretation. In patients with unstable renal function, e.g. those with acute kidney injury, the eGFR may not accurately reflect actual GFR. Performed By: #### 2 4362-6 ####[facility] LABCLIA [id number] [place] [address] [place] Glucose [Mass/Vol] 47 mg/dL Low 74-99 [facility] Comment on above: Order Comment: [place] Type: BLOOD SPECIMENOrdering Facility: [facility] Address: [address] [place] [address] Result Comment: The [place] [employer] (ADA) provides guidance for cutoff values for fasting glucose and random glucose. The ADA defines fasting as no caloric intake for at least 8 hours. Fasting plasma glucose results between 100 to 125 mg/dL indicate increased risk for diabetes (prediabetes).Fasting plasma glucose results greater than or equal to 126 mg/dL meet the criteria for diagnosis of diabetes. In the absence of unequivocal hyperglycemia, results should be confirmed by repeat testing. In a patient with classic symptoms of hyperglycemia or hyperglycemic crisis, random plasma glucose results greater than or equal to 200 mg/dL meet the criteria for diagnosis of diabetes.Reference: Standards of Medical Care in Diabetes 2016, [place] [employer]. Diabetes Care. 2016.39(Suppl 1). Performed By: #### 2 4362-6 ####[facility] LABCLIA [id number] [place] [address] [place] Phosphate [Mass/Vol] 3.3 mg/dL Normal 2.7-4.8 [facility] Comment on above: Order Comment: [place] Type: BLOOD SPECIMENOrdering Facility: [facility] Address: [address] [address] Performed By: #### 2 4362-6 ####[facility] LABCLIA [id number] [place] [address] [place] Potassium [Moles/Vol] 3.8 mmol/L Normal 3.7-5.1 [facility] Comment on above: Order Comment: Speci men Type: BLOOD SPECIMENOrdering Facility: [facility] Address: [address] [place] [address] Performed By: #### 2 4362-6 ####[facility] LABCLIA [id number] [place] [address] [place] Sodium [Moles/Vol] 142 mmol/L Normal 136-144 [facility] Comment on above: Order Comment: Speci men Type: BLOOD SPECIMENOrdering Facility: [facility] Address: [address] [place] [address] Performed By: #### 2 4362-6 ####[facility] LABCLIA [id number] [place] [address] [place] Urea nitrogen [Mass/Vol] 23 mg/dL High 7-21 [facility] Comment on above: Order Comment: Speci men Type: BLOOD SPECIMENOrdering Facility: [facility] Address: [address] [place] [address] Performed By: #### 2 4362-6 ####[facility] LABCLIA [id number] [place] [address] [place] THERAPY NTon 07-07-2022 THERAPY NT Normal [facility] Basic metabolic 2000 panelon 07-06-2022 Anion gap [Moles/Vol] 12 mmol/L Normal 9-18 [facility] Comment on above: Order Comment: Speci men Type: BLOOD SPECIMENOrdering Facility: [facility] Address: [address] [place] [address] Performed By: #### 2 4321-2 ####[facility] LABCLIA [id number] [place] [address] [place] Calcium [Mass/Vol] 9.8 mg/dL Normal 8.5-10.2 [facility] Comment on above: Order Comment: Speci men Type: BLOOD SPECIMENOrdering Facility: [facility] Address: [address] [address] Performed By: #### 2 4321-2 ####[facility] LABCLIA [id number] [place] [address] [place] Chloride [Moles/Vol] 105 mmol/L Normal 97-105 [facility] Comment on above: Order Comment: Speci men Type: BLOOD SPECIMENOrdering Facility: [facility] Address: [address] [address] Performed By: #### 2 4321-2 ####[facility] LABCLIA [id number] [place] [address] [place] CO2 [Moles/Vol] 21 mmol/L Low 22-30 [facility] Comment on above: Order Comment: Speci men Type: BLOOD SPECIMENOrdering Facility: [facility] Address: [address] [place], [place] [address] Performed By: #### 2 4321-2 ####[facility] LABCLIA [id number] [place] [address] [place] Creatinine [Mass/Vol] 0.66 mg/dL Normal 0.58-0.96 [facility] Comment on above: Order Comment: Speci men Type: BLOOD SPECIMENOrdering Facility: [facility] Address: [address] Performed By: #### 2 4321-2 ####[facility] LABCLIA [id number] [place] [address] [place] ESTIMATED GLOMERULAR FILTRATION RATE 103 mL/min/1.73m??? Normal >=60 [facility] Comment on above: Order Comment: Speci men Type: BLOOD SPECIMENOrdering Facility: [facility] Address: [address] Result Comment: Maritza mated Glomerular Filtration Rate (eGFR) is calculated using the 2020 CKD-EPI creatinine equation. This equation utilizes serum creatinine, sex, and age as parameters. The creatinine assay has traceable calibration to isotope dilution-mass spectrometry. Refer to KDIGO guidelines for clinical interpretation. In patients with unstable renal function, e.g. those with acute kidney injury, the eGFR may not accurately reflect actual GFR. Performed By: #### 2 4321-2 ####[facility] LABIA [id number] [place] [address] [place] Glucose [Mass/Vol] 290 mg/dL High 74-99 [facility] Comment on above: Order Comment: Specchristiane men Type: BLOOD SPECIMENOrdering Facility: [facility] Address: [address] [address] Result Comment: The [place] Diabetes Association (ADA) provides guidance for cutoff values for fasting glucose and random glucose. The ADA defines fasting as no caloric intake for at least 8 hours. Fasting plasma glucose results between 100 to 125 mg/dL indicate increased risk for diabetes (prediabetes).Fasting plasma glucose results greater than or equal to 126 mg/dL meet the criteria for diagnosis of diabetes. In the absence of unequivocal hyperglycemia, results should be confirmed by repeat testing. In a patient with classic symptoms of hyperglycemia or hyperglycemic crisis, random plasma glucose results greater than or equal to 200 mg/dL meet the criteria for diagnosis of diabetes.Reference: Standards of Medical Care in Diabetes 2016, [place] [employer]. Diabetes Care. 2016.39(Suppl 1). Performed By: #### 2 4321-2 ####[facility] LABIA [id number] [place] [address] [place] Potassium [Moles/Vol] 3.9 mmol/L Normal 3.7-5.1 [facility] Comment on above: Order Comment: [place] Type: BLOOD SPECIMENOrdering Facility: [facility] Address: [address] [address] Performed By: #### 2 4321-2 ####[facility] LABIA [id number] [place] [address] [place] Sodium [Moles/Vol] 138 mmol/L Normal 136-144 [facility] Comment on above: Order Comment: Speci men Type: BLOOD SPECIMENOrdering Facility: [facility] Address: [address] [place] [address] Performed By: #### 2 4321-2 ####[facility] LABCLIA [id number] [place] [address] [place] Urea nitrogen [Mass/Vol] 30 mg/dL High 7-21 [facility] Comment on above: Order Comment: Speci men Type: BLOOD SPECIMENOrdering Facility: [facility] Address: [address] [place] [address] Performed By: #### 2 4321-2 ####[facility] LABIA [id number] [address] [place] CASE MANAGEMon 07-06-2022 CASE MANAGEM Normal [facility] CBC panel Auto (Bld)on 07-06 Erythrocyte distribution width (RBC) [Ratio] 13.9 % Normal 11.5-15.0 [facility] Comment on above: Order Comment: Speci men Type: BLOOD SPECIMENOrdering Facility: [facility] Address: [address] [place] [address] Performed By: #### 5 8410-2 ####[facility] LABCLIA [id number] [place] [address] [place] Hematocrit (Bld) [Volume fraction] 35.6 % Low 36.0-46.0 [facility] Comment on above: Order Comment: Speci men Type: BLOOD SPECIMENOrdering Facility: [facility] Address: [address] [place] [address] Performed By: #### 5 8410-2 ####[facility] LABCLIA [id number] [place] [address] [place] Hemoglobin (Bld) [Mass/Vol] 11.8 g/dL Normal 11.5-15.5 [facility] Comment on above: Order Comment: Speci men Type: BLOOD SPECIMENOrdering Facility: [facility] Address: [address] Performed By: #### 5 8410-2 ####[facility] LABCLIA [id number] [address] [place] MCH (RBC) [Entitic mass] 30.7 pg Normal 26.0-34.0 [facility] Comment on above: Order Comment: Speci men Type: BLOOD SPECIMENOrdering Facility: [facility] Address: [address] [place], [place] [address] Performed By: #### 5 8410-2 ####[facility] LABCLIA [id number] [address] [place] MCHC (RBC) [Mass/Vol] 33.1 g/dL Normal 30.5-36.0 [facility] Comment on above: Order Comment: Speci men Type: BLOOD SPECIMENOrdering Facility: [facility] Address: [address] [place], [place] [address] Performed By: #### 5 8410-2 ####[facility] LABIA [id number] [place] [address] [place] MCV (RBC) [Entitic vol] 92.7 fL Normal 80.0-100.0 C [facility] Comment on above: Order Comment: Speci men Type: BLOOD SPECIMENOrdering Facility: [facility] Address: [address] [place], [place] [address] Performed By: #### 5 8410-2 ####[facility] LABCLIA [id number] [address] [place] Nucleated RBC (Bld) [#/Vol] 10*3/uL Normal <0.01 [facility] Comment on above: Order Comment: Speci men Type: BLOOD SPECIMENOrdering Facility: [facility] Address: [address] Performed By: #### 5 8410-2 ####[facility] LABIA [id number] [place] [address] [place] Platelet mean volume (Bld) [Entitic vol] 9.3 fL Normal 9.0-12.7 [facility] Comment on above: Order Comment: Speci men Type: BLOOD SPECIMENOrdering Facility: [facility] Address: [address] [place], [place] [address] Performed By: #### 5 8410-2 ####[facility] LABIA [id number] [place] [address] [place] Platelets (Bld) [#/Vol] 584 10*3/uL High 150-400 [facility] Comment on above: Order Comment: Speci men Type: BLOOD SPECIMENOrdering Facility: [facility] Address: [address] [place], [place] [address] Performed By: #### 5 8410-2 ####[facility] [id number] [place] [address] [place] RBC (Bld) [#/Vol] 3.84 10*6/uL Low 3.90-5.20 [facility] Comment on above: Order Comment: Speci men Type: BLOOD SPECIMENOrdering Facility: [facility] Address: [address] [place] [address] Performed By: #### 5 8410-2 ####[facility] LABIA [id number] [place] [address] [place] WBC (Bld) [#/Vol] 4.27 10*3/uL Normal 3.70-11.00 [facility] Comment on above: Order Comment: Speci men Type: BLOOD SPECIMENOrdering Facility: [facility] Address: [address] [place], [place] [address] Performed By: #### 5 8410-2 ####[facility] LABCLIA [id number] [place] [address] [place] KETONES/ACETONE/BHBon 2022 Beta hydroxybutyrate [Moles/Vol] 2.82 mmol/L High <0.28 [facility] Comment on above: Order Comment: Speci men Type: BLOOD SPECIMENOrdering Facility: [facility] Address: [address] [place] [address] Result Comment: This test was developed and its performance characteristics determined by [facility] Pathology and Laboratory Medicine [place] ([facility]). It has not been cleared or approved by the FDA. -[facility] is regulated under CLIA as qualified to perform high-complexity testing. This test is used for clinical purposes. It should not be regarded as investigational or for research. Performed By: #### B [place], 87450-4 ####[facility] LABCLIA [id number] [place] [address] [place] Renal function 2000 panelon 07-06-2022 Albumin [Mass/Vol] 3.8 g/dL Low 3.9-4.9 [facility] Comment on above: Order Comment: Speci men Type: BLOOD SPECIMENOrdering Facility: [facility] Address: [address] [place] [address] Performed By: #### B HB, 92495-3 ####[facility] LABCLIA [id number] [place] [address] [place] Anion gap [Moles/Vol] 14 mmol/L Normal 9-18 [facility] Comment on above: Order Comment: Speci men Type: BLOOD SPECIMENOrdering Facility: [facility] Address: [address] [place] [address] Performed By: #### B HB, 89396-5 ####[facility] LABCLIA [id number] [place] [address] [place] Calcium [Mass/Vol] 9.8 mg/dL Normal 8.5-10.2 [facility] Comment on above: Order Comment: Speci men Type: BLOOD SPECIMENOrdering Facility: [facility] Address: [address] Performed By: #### B HB, 45655-1 ####[facility] LABCLIA [id number] [place] [address] [place] Chloride [Moles/Vol] 100 mmol/L Normal 97-105 [facility] Comment on above: Order Comment: Speci men Type: BLOOD SPECIMENOrdering Facility: [facility] Address: [address] Performed By: #### B HB, 79542-2 ####[facility] LABCLIA [id number] [place] [address] [place] CO2 [Moles/Vol] 19 mmol/L Low 22-30 [facility] Comment on above: Order Comment: Speci men Type: BLOOD SPECIMENOrdering Facility: [facility] Address: [address] Performed By: #### B [place], 92133-0 ####[facility] LABCLIA [id number] [place] [address] [place] Creatinine [Mass/Vol] 0.47 mg/dL Low 0.58-0.96 [facility] Comment on above: Order Comment: Speci men Type: BLOOD SPECIMENOrdering Facility: [facility] Address: [address] Performed By: #### B HB, 37342-6 ####[facility] LABCLIA [id number] [place] [address] [place] ESTIMATED GLOMERULAR FILTRATION RATE 112 mL/min/1.73m??? Normal >=60 [facility] Comment on above: Order Comment: Speci men Type: BLOOD SPECIMENOrdering Facility: [facility] Address: [address] [address] Result Comment: Maritza mated Glomerular Filtration Rate (eGFR) is calculated using the 2020 CKD-EPI creatinine equation. This equation utilizes serum creatinine, sex, and age as parameters. The creatinine assay has traceable calibration to isotope dilution-mass spectrometry. Refer to KDIGO guidelines for clinical interpretation. In patients with unstable renal function, e.g. those with acute kidney injury, the eGFR may not accurately reflect actual GFR. Performed By: #### B [place], 22838-2 ####[facility] LABCLIA [id number] [place] [address] [place] Glucose [Mass/Vol] 657 mg/dL High 74-99 [facility] Comment on above: Order Comment: [place] Type: BLOOD SPECIMENOrdering Facility: [facility] Address: [address] [address] Result Comment: The [place] Diabetes [employer] (ADA) provides guidance for cutoff values for fasting glucose and random glucose. The ADA defines fasting as no caloric intake for at least 8 hours. Fasting plasma glucose results between 100 to 125 mg/dL indicate increased risk for diabetes (prediabetes).Fasting plasma glucose results greater than or equal to 126 mg/dL meet the criteria for diagnosis of diabetes. In the absence of unequivocal hyperglycemia, results should be confirmed by repeat testing. In a patient with classic symptoms of hyperglycemia or hyperglycemic crisis, random plasma glucose results greater than or equal to 200 mg/dL meet the criteria for diagnosis of diabetes.Reference: Standards of Medical Care in Diabetes 2016, [place] [employer]. Diabetes Care. 2016.39(Suppl 1). Performed By: #### B [place], 28162-4 ####[facility] LABCLIA [id number] [place] [address] [place] Phosphate [Mass/Vol] 3.2 mg/dL Normal 2.7-4.8 [facility] Comment on above: Order Comment: [place] Type: BLOOD SPECIMENOrdering Facility: [facility] Address: [address] [address] Performed By: #### B HB, 58864-5 ####[facility] LABCLIA [id number] [place] [address] [place] Potassium [Moles/Vol] 4.8 mmol/L Normal 3.7-5.1 [facility] Comment on above: Order Comment: Speci men Type: BLOOD SPECIMENOrdering Facility: [facility] Address: [address] [place] [address] Performed By: #### B HB, 89850-7 ####[facility] LABCLIA [id number] [place] [address] [place] Sodium [Moles/Vol] 133 mmol/L Low 136-144 [facility] Comment on above: Order Comment: Speci men Type: BLOOD SPECIMENOrdering Facility: [facility] Address: [address] [place] [address] Performed By: #### B HB, 78947-0 ####[facility] LABCLIA [id number] [place] [address] [place] Urea nitrogen [Mass/Vol] 30 mg/dL High 7-21 [facility] Comment on above: Order Comment: Speci men Type: BLOOD SPECIMENOrdering Facility: [facility] Address: [address] [place] [address] Performed By: #### [place], 363[address]-3 ####[facility] LABCLIA [id number] [place] [address] [place] THERAPY NTon 07-06-2022 THERAPY NT Normal [facility] CASE MANAGEMon 07-05-2022 CASE MANAGEM Normal [facility] CBC panel Auto (Bld)on 07-05 Erythrocyte distribution width (RBC) [Ratio] 13.8 % Normal 11.5-15.0 [facility] Comment on above: Order Comment: Speci men Type: BLOOD SPECIMENOrdering Facility: [facility] Address: [address] [place] [address] Performed By: #### 5 8410-2 ####[facility] LABCLIA [id number] [place] [address] [place] Hematocrit (Bld) [Volume fraction] 33.6 % Low 36.0-46.0 [facility] Comment on above: Order Comment: Speci men Type: BLOOD SPECIMENOrdering Facility: [facility] Address: [address] [place] [address] Performed By: #### 5 8410-2 ####[facility] [id number] [place] [address] [place] Hemoglobin (Bld) [Mass/Vol] 11.5 g/dL Normal 11.5-15.5 [facility] Comment on above: Order Comment: Speci men Type: BLOOD SPECIMENOrdering Facility: [facility] Address: [address] [place] [address] Performed By: #### 5 8410-2 ####[facility] [id number] [place] [address] [place] MCH (RBC) [Entitic mass] 30.7 pg Normal 26.0-34.0 [facility] Comment on above: Order Comment: Speci men Type: BLOOD SPECIMENOrdering Facility: [facility] Address: [address] [place] [address] Performed By: #### 5 8410-2 ####[facility] [id number] [place] [address] [place] MCHC (RBC) [Mass/Vol] 34.2 g/dL Normal 30.5-36.0 [facility] Comment on above: Order Comment: Speci men Type: BLOOD SPECIMENOrdering Facility: [facility] Address: [address] [place] [address] Performed By: #### 5 8410-2 ####[facility] [id number] [place] [address] [place] MCV (RBC) [Entitic vol] 89.8 fL Normal 80.0-100.0 C [facility] Comment on above: Order Comment: Speci men Type: BLOOD SPECIMENOrdering Facility: [facility] Address: [address] [place], [place] [address] Performed By: #### 5 8410-2 ####[facility] LABCLIA [id number] [place] [address] [place] Nucleated RBC (Bld) [#/Vol] 10*3/uL Normal <0.01 [facility] Comment on above: Order Comment: Speci men Type: BLOOD SPECIMENOrdering Facility: [facility] Address: [address] [place], [place] [address] Performed By: #### 5 8410-2 ####[facility] LABIA [id number] [place] [address] [place] Platelet mean volume (Bld) [Entitic vol] 9.2 fL Normal 9.0-12.7 [facility] Comment on above: Order Comment: Speci men Type: BLOOD SPECIMENOrdering Facility: [facility] Address: [address] [place], [place] [address] Performed By: #### 5 8410-2 ####[facility] LABIA [id number] [place] [address] [place] Platelets (Bld) [#/Vol] 505 10*3/uL High 150-400 [facility] Comment on above: Order Comment: Speci men Type: BLOOD SPECIMENOrdering Facility: [facility] Address: [address] [place], [place] [address] Performed By: #### 5 8410-2 ####[facility] LABCLIA [id number] [place] [address] [place] RBC (Bld) [#/Vol] 3.74 10*6/uL Low 3.90-5.20 [facility] Comment on above: Order Comment: Speci men Type: BLOOD SPECIMENOrdering Facility: [facility] Address: [address] [address] Performed By: #### 5 8410-2 ####[facility] LABCLIA [id number] [place] [address] [place] WBC (Bld) [#/Vol] 5.70 10*3/uL Normal 3.70-11.00 [facility] Comment on above: Order Comment: Speci men Type: BLOOD SPECIMENOrdering Facility: [facility] Address: [address] [address] Performed By: #### 5 8410-2 ####[facility] [id number] [place] [address] [place] POSACONAZOLE, SERUMon 2022 Posaconazole [Mass/Vol] 4.3 ug/mL High 0.7-3.9 C [facility] Comment on above: Order Comment: Speci men Type: BLOOD SPECIMENOrdering Facility: [facility] Address: [address] [place] [address] Result Comment: Rang es are based on trough draw at steady-state concentration.Therapeutic: >0.9 ug/mLProphylactic: >0.6 ug/mLToxic: >3.9 ug/mLThe therapeutic, prophylactic, and toxic ranges were based on the 2016 Infectious Disease Society of [place]'s (IDSA) Clinical Practice Guidelines for the Management of Aspergillosis and Candidiasis and consultation from [facility]'s Department of Infectious Disease.Reference ranges and high/low indicator flags are provided as general guidelines only. The treating physician must determine appropriate target levels/dosing based on the specific clinical situation.This test was developed and its performance characteristics determined by [facility]'s Katie JGiancarlo [facility] Pathology and Laboratory Medicine [place] ([facility]). It has not been cleared or approved by the FDA. -[facility] is regulated under CLIA as qualified to perform high-complexity testing. This test is used for clinical purposes. It should not be regarded as investigational or for research. Performed By: #### P OSACN ####[facility] LABCLIA [id number] [place] [address] [place] Renal function 2000 panelon 07-05-2022 Albumin [Mass/Vol] 3.8 g/dL Low 3.9-4.9 [facility] Comment on above: Order Comment: Speci men Type: BLOOD SPECIMENOrdering Facility: [facility] Address: [address] Performed By: #### 2 4362-6 ####[facility] LABCLIA [id number] [place] [address] [place] Anion gap [Moles/Vol] 11 mmol/L Normal 9-18 [facility] Comment on above: Order Comment: Speci men Type: BLOOD SPECIMENOrdering Facility: [facility] Address: [address] [address] Performed By: #### 2 4362-6 ####[facility] LABCLIA [id number] [place] [address] [place] Calcium [Mass/Vol] 9.7 mg/dL Normal 8.5-10.2 [facility] Comment on above: Order Comment: Speci men Type: BLOOD SPECIMENOrdering Facility: [facility] Address: [address] [place], [place] [address] Performed By: #### 2 4362-6 ####[facility] LABCLIA [id number] [place] [address] [place] Chloride [Moles/Vol] 100 mmol/L Normal 97-105 [facility] Comment on above: Order Comment: Speci men Type: BLOOD SPECIMENOrdering Facility: [facility] Address: [address] [place] [address] Performed By: #### 2 4362-6 ####[facility] LABCLIA [id number] [place] [address] [place] CO2 [Moles/Vol] 22 mmol/L Normal 22-30 [facility] Comment on above: Order Comment: Speci men Type: BLOOD SPECIMENOrdering Facility: [facility] Address: [address] [address] Performed By: #### 2 4362-6 ####[facility] LABIA [id number] [place] [address] [place] Creatinine [Mass/Vol] 0.45 mg/dL Low 0.58-0.96 [facility] Comment on above: Order Comment: Speci men Type: BLOOD SPECIMENOrdering Facility: [facility] Address: [address] [address] Performed By: #### 2 4362-6 ####[facility] LABIA [id number] [address] [place] ESTIMATED GLOMERULAR FILTRATION RATE 113 mL/min/1.73m??? Normal >=60 [facility] Comment on above: Order Comment: Speci men Type: BLOOD SPECIMENOrdering Facility: [facility] Address: [address] [place] [address] Result Comment: Maritza mated Glomerular Filtration Rate (eGFR) is calculated using the 2020 CKD-EPI creatinine equation. This equation utilizes serum creatinine, sex, and age as parameters. The creatinine assay has traceable calibration to isotope dilution-mass spectrometry. Refer to KDIGO guidelines for clinical interpretation. In patients with unstable renal function, e.g. those with acute kidney injury, the eGFR may not accurately reflect actual GFR. Performed By: #### 2 4362-6 ####[facility] LABIA [id number] [place] [address] [place] Glucose [Mass/Vol] 288 mg/dL High 74-99 [facility] Comment on above: Order Comment: Speci men Type: BLOOD SPECIMENOrdering Facility: [facility] Address: [address] [address] Result Comment: The [place] Diabetes Association (ADA) provides guidance for cutoff values for fasting glucose and random glucose. The ADA defines fasting as no caloric intake for at least 8 hours. Fasting plasma glucose results between 100 to 125 mg/dL indicate increased risk for diabetes (prediabetes).Fasting plasma glucose results greater than or equal to 126 mg/dL meet the criteria for diagnosis of diabetes. In the absence of unequivocal hyperglycemia, results should be confirmed by repeat testing. In a patient with classic symptoms of hyperglycemia or hyperglycemic crisis, random plasma glucose results greater than or equal to 200 mg/dL meet the criteria for diagnosis of diabetes.Reference: Standards of Medical Care in Diabetes 2016, [place] [employer]. Diabetes Care. 2016.39(Suppl 1). Performed By: #### 2 4362-6 ####[facility] LABIA [id number] [place] [address] [place] Phosphate [Mass/Vol] 2.9 mg/dL Normal 2.7-4.8 [facility] Comment on above: Order Comment: Speci men Type: BLOOD SPECIMENOrdering Facility: [facility] Address: [address] [place] [address] Performed By: #### 2 4362-6 ####[facility] LABIA [id number] [place] [address] [place] Potassium [Moles/Vol] 4.4 mmol/L Normal 3.7-5.1 [facility] Comment on above: Order Comment: Speci men Type: BLOOD SPECIMENOrdering Facility: [facility] Address: [address] [address] Performed By: #### 2 4362-6 ####[facility] LABIA [id number] [place] [address] [place] Sodium [Moles/Vol] 133 mmol/L Low 136-144 [facility] Comment on above: Order Comment: Speci men Type: BLOOD SPECIMENOrdering Facility: [facility] Address: [address] Performed By: #### 2 4362-6 ####[facility] LABIA [id number] [address] [place] Urea nitrogen [Mass/Vol] 24 mg/dL High - [facility] Comment on above: Order Comment: Speci men Type: BLOOD SPECIMENOrdering Facility: [facility] Address: [address] [place] [address] Performed By: #### 2 4362-6 ####[facility] LABCLIA [id number] [place] [address] [place] ALLIED HEALTHon 07-04-2022 ALLIED HEALTH Normal [facility] CBC panel Auto (Bld)on 07-04 Erythrocyte distribution width (RBC) [Ratio] 13.9 % Normal 11.5-15.0 [facility] Comment on above: Order Comment: Speci men Type: BLOOD SPECIMENOrdering Facility: [facility] Address: [address] [place] [address] Performed By: #### 5 8410-2 ####[facility] LABCLIA [id number] [address] [place] Hematocrit (Bld) [Volume fraction] 34.2 % Low 36.0-46.0 [facility] Comment on above: Order Comment: Speci men Type: BLOOD SPECIMENOrdering Facility: [facility] Address: [address] [place], [place] [address] Performed By: #### 5 8410-2 ####[facility] LABCLIA [id number] [address] [place] Hemoglobin (Bld) [Mass/Vol] 11.3 g/dL Low 11.5-15.5 [facility] Comment on above: Order Comment: Speci men Type: BLOOD SPECIMENOrdering Facility: [facility] Address: [address] [place], [place] [address] Performed By: #### 5 8410-2 ####[facility] LABCLIA [id number] [place] [address] [place] MCH (RBC) [Entitic mass] 30.4 pg Normal 26.0-34.0 [facility] Comment on above: Order Comment: Speci men Type: BLOOD SPECIMENOrdering Facility: [facility] Address: [address] [place], [place] [address] Performed By: #### 5 8410-2 ####[facility] LABCLIA [id number] [address] [place] MCHC (RBC) [Mass/Vol] 33.0 g/dL Normal 30.5-36.0 [facility] Comment on above: Order Comment: Speci men Type: BLOOD SPECIMENOrdering Facility: [facility] Address: [address] [place] [address] Performed By: #### 5 8410-2 ####[facility] LABCLIA [id number] [place] [address] [place] MCV (RBC) [Entitic vol] 91.9 fL Normal 80.0-100.0 [facility] Comment on above: Order Comment: Speci men Type: BLOOD SPECIMENOrdering Facility: [facility] Address: [address] [place], [place] [address] Performed By: #### 5 8410-2 ####[facility] LABCLIA [id number] [place] [address] [place] Nucleated RBC (Bld) [#/Vol] 10*3/uL Normal <0.01 [facility] Comment on above: Order Comment: Speci men Type: BLOOD SPECIMENOrdering Facility: [facility] Address: [address] [place], [place] [address] Performed By: #### 5 8410-2 ####[facility] LABCLIA [id number] [place] [address] [place] Platelet mean volume (Bld) [Entitic vol] 9.3 fL Normal 9.0-12.7 [facility] Comment on above: Order Comment: Speci men Type: BLOOD SPECIMENOrdering Facility: [facility] Address: [address] [address] Performed By: #### 5 8410-2 ####[facility] LABIA [id number] [place] [address] [place] Platelets (Bld) [#/Vol] 455 10*3/uL High 150-400 [facility] Comment on above: Order Comment: Speci men Type: BLOOD SPECIMENOrdering Facility: [facility] Address: [address] [place] [address] Performed By: #### 5 8410-2 ####[facility] LABIA [id number] [place] [address] [place] RBC (Bld) [#/Vol] 3.72 10*6/uL Low 3.90-5.20 [facility] Comment on above: Order Comment: Speci men Type: BLOOD SPECIMENOrdering Facility: [facility] Address: [address] [place] [address] Performed By: #### 5 8410-2 ####[facility] LABIA [id number] [place] [address] [place] WBC (Bld) [#/Vol] 6.14 10*3/uL Normal 3.70-11.00 [facility] Comment on above: Order Comment: Speci men Type: BLOOD SPECIMENOrdering Facility: [facility] Address: [address] [place] [address] Performed By: #### 5 8410-2 ####[facility] [id number] [place] [address] [place] CONSULT PROGon 07-04-2022 CONSULT PROG Normal [facility] NUTRITIONon 07-04-2022 NUTRITION Normal [facility] Renal function 2000 panelon 07-04-2022 Albumin [Mass/Vol] 3.5 g/dL Low 3.9-4.9 [facility] Comment on above: Order Comment: Speci men Type: BLOOD SPECIMENOrdering Facility: [facility] Address: [address] Performed By: #### 2 4362-6 ####[facility] LABCLIA [id number] [place] [address] [place] Anion gap [Moles/Vol] 12 mmol/L Normal 9-18 [facility] Comment on above: Order Comment: Speci men Type: BLOOD SPECIMENOrdering Facility: [facility] Address: [address] Performed By: #### 2 4362-6 ####[facility] LABCLIA [id number] [place] [address] [place] Calcium [Mass/Vol] 9.4 mg/dL Normal 8.5-10.2 [facility] Comment on above: Order Comment: Speci men Type: BLOOD SPECIMENOrdering Facility: [facility] Address: [address] Performed By: #### 2 4362-6 ####[facility] LABCLIA [id number] [place] [address] [place] Chloride [Moles/Vol] 101 mmol/L Normal 97-105 [facility] Comment on above: Order Comment: Speci men Type: BLOOD SPECIMENOrdering Facility: [facility] Address: [address] [place] [address] Performed By: #### 2 4362-6 ####[facility] LABCLIA [id number] [place] [address] [place] CO2 [Moles/Vol] 21 mmol/L Low 22-30 [facility] Comment on above: Order Comment: Speci men Type: BLOOD SPECIMENOrdering Facility: [facility] Address: [address] Performed By: #### 2 4362-6 ####[facility] LABCLIA [id number] [address] [place] Creatinine [Mass/Vol] 0.40 mg/dL Low 0.58-0.96 [facility] Comment on above: Order Comment: [place] Type: BLOOD SPECIMENOrdering Facility: [facility] Address: [address] [address] Performed By: #### 2 4362-6 ####[facility] LABIA [id number] [address] ESTIMATED GLOMERULAR FILTRATION RATE 116 mL/min/1.73m??? Normal >=60 [facility] Comment on above: Order Comment: [place] Type: BLOOD SPECIMENOrdering Facility: [facility] Address: [address] [place] [address] Result Comment: Maritza mated Glomerular Filtration Rate (eGFR) is calculated using the 2020 CKD-EPI creatinine equation. This equation utilizes serum creatinine, sex, and age as parameters. The creatinine assay has traceable calibration to isotope dilution-mass spectrometry. Refer to KDIGO guidelines for clinical interpretation. In patients with unstable renal function, e.g. those with acute kidney injury, the eGFR may not accurately reflect actual GFR. Performed By: #### 2 4362-6 ####[facility] LABIA [id number] [address] [place] Glucose [Mass/Vol] 448 mg/dL High 74-99 [facility] Comment on above: Order Comment: [place] Type: BLOOD SPECIMENOrdering Facility: [facility] Address: [address] [address] Result Comment: The [place] Diabetes [employer] (ADA) provides guidance for cutoff values for fasting glucose and random glucose. The ADA defines fasting as no caloric intake for at least 8 hours. Fasting plasma glucose results between 100 to 125 mg/dL indicate increased risk for diabetes (prediabetes).Fasting plasma glucose results greater than or equal to 126 mg/dL meet the criteria for diagnosis of diabetes. In the absence of unequivocal hyperglycemia, results should be confirmed by repeat testing. In a patient with classic symptoms of hyperglycemia or hyperglycemic crisis, random plasma glucose results greater than or equal to 200 mg/dL meet the criteria for diagnosis of diabetes.Reference: Standards of Medical Care in Diabetes 2016, [place] [employer]. Diabetes Care. 2016.39(Suppl 1). Performed By: #### 2 4362-6 ####[facility] LABCLIA [id number] [place] [address] [place] Phosphate [Mass/Vol] 3.1 mg/dL Normal 2.7-4.8 [facility] Comment on above: Order Comment: Speci men Type: BLOOD SPECIMENOrdering Facility: [facility] Address: [address] [address] Performed By: #### 2 4362-6 ####[facility] LABIA [id number] [place] [address] [place] Potassium [Moles/Vol] 4.4 mmol/L Normal 3.7-5.1 [facility] Comment on above: Order Comment: Speci men Type: BLOOD SPECIMENOrdering Facility: [facility] Address: [address] Performed By: #### 2 4362-6 ####[facility] LABIA [id number] [place] [address] [place] Sodium [Moles/Vol] 134 mmol/L Low 136-144 [facility] Comment on above: Order Comment: Speci men Type: BLOOD SPECIMENOrdering Facility: [facility] Address: [address] Performed By: #### 2 4362-6 ####[facility] LABIA [id number] [place] [address] [place] Urea nitrogen [Mass/Vol] 27 mg/dL High 7-21 [facility] Comment on above: Order Comment: Speci men Type: BLOOD SPECIMENOrdering Facility: [facility] Address: [address] Performed By: #### 2 4362-6 ####[facility] LABCLIA [id number] [place] [address] [place] THERAPY NTon 07-04-2022 THERAPY NT Normal [facility] CASE MANAGEMon 07-03-2022 CASE MANAGEM Normal [facility] CBC panel Auto (Bld)on 07-03 Erythrocyte distribution width (RBC) [Ratio] 13.9 % Normal 11.5-15.0 [facility] Comment on above: Order Comment: Speci men Type: BLOOD SPECIMENOrdering Facility: [facility] Address: [address] [place] [address] Performed By: #### 5 8410-2 ####[facility] LABIA [id number] [address] [place] Hematocrit (Bld) [Volume fraction] 33.6 % Low 36.0-46.0 [facility] Comment on above: Order Comment: Speci men Type: BLOOD SPECIMENOrdering Facility: [facility] Address: [address] [address] Performed By: #### 5 8410-2 ####[facility] LABIA [id number] [address] [place] Hemoglobin (Bld) [Mass/Vol] 11.1 g/dL Low 11.5-15.5 [facility] Comment on above: Order Comment: Speci men Type: BLOOD SPECIMENOrdering Facility: [facility] Address: [address] Performed By: #### 5 8410-2 ####[facility] LABIA [id number] [place] [address] [place] MCH (RBC) [Entitic mass] 30.8 pg Normal 26.0-34.0 [facility] Comment on above: Order Comment: Speci men Type: BLOOD SPECIMENOrdering Facility: [facility] Address: [address] Performed By: #### 5 8410-2 ####[facility] LABCLIA [id number] [address] [facility] MCHC (RBC) [Mass/Vol] 33.0 g/dL Normal 30.5-36.0 [facility] Comment on above: Order Comment: Speci men Type: BLOOD SPECIMENOrdering Facility: [facility] Address: [address] Performed By: #### 5 8410-2 ####[facility] LABIA [id number] [address] [place] MCV (RBC) [Entitic vol] 93.3 fL Normal 80.0-100.0 [facility] Comment on above: Order Comment: Speci men Type: BLOOD SPECIMENOrdering Facility: [facility] Address: [address] [place], [place] [address] Performed By: #### 5 8410-2 ####[facility] LABIA [id number] [place] [address] [place] Nucleated RBC (Bld) [#/Vol] 10*3/uL Normal <0.01 [facility] Comment on above: Order Comment: Speci men Type: BLOOD SPECIMENOrdering Facility: [facility] Address: [address] [place] [address] Performed By: #### 5 8410-2 ####[facility] LABIA [id number] [address] [place] Platelet mean volume (Bld) [Entitic vol] 9.4 fL Normal 9.0-12.7 [facility] Comment on above: Order Comment: Speci men Type: BLOOD SPECIMENOrdering Facility: [facility] Address: [address] [place], [place] [address] Performed By: #### 5 8410-2 ####[facility] LABIA [id number] [place] [address] [place] Platelets (Bld) [#/Vol] 472 10*3/uL High 150-400 [facility] Comment on above: Order Comment: Speci men Type: BLOOD SPECIMENOrdering Facility: [facility] Address: [address] [place] [address] Performed By: #### 5 8410-2 ####[facility] LABCLIA [id number] [place] [address] [place] RBC (Bld) [#/Vol] 3.60 10*6/uL Low 3.90-5.20 [facility] Comment on above: Order Comment: Speci men Type: BLOOD SPECIMENOrdering Facility: [facility] Address: [address] [place] [address] Performed By: #### 5 8410-2 ####[facility] LABIA [id number] [place] [address] [place] WBC (Bld) [#/Vol] 6.32 10*3/uL Normal 3.70-11.00 [facility] Comment on above: Order Comment: Speci men Type: BLOOD SPECIMENOrdering Facility: [facility] Address: [address] [place], [place] [address] Performed By: #### 5 8410-2 ####[facility] LABIA [id number] [place] [address] [place] ECG COMPLETEon 07-03-2022 ECG COMPLETE Normal [facility] Renal function 2000 panelon 07-03-2022 Albumin [Mass/Vol] 3.5 g/dL Low 3.9-4.9 [facility] Comment on above: Order Comment: Speci men Type: BLOOD SPECIMENOrdering Facility: [facility] Address: [address] [place], [place] [address] Performed By: #### 2 4362-6 ####[facility] LABCLIA [id number] [place] [address] [place] Anion gap [Moles/Vol] 11 mmol/L Normal 9-18 [facility] Comment on above: Order Comment: Speci men Type: BLOOD SPECIMENOrdering Facility: [facility] Address: [address] [place] [address] Performed By: #### 2 4362-6 ####[facility] LABCLIA [id number] [place] [address] [place] Calcium [Mass/Vol] 9.6 mg/dL Normal 8.5-10.2 [facility] Comment on above: Order Comment: Speci men Type: BLOOD SPECIMENOrdering Facility: [facility] Address: [address] [place] [address] Performed By: #### 2 4362-6 ####[facility] LABCLIA [id number] [place] [address] [place] Chloride [Moles/Vol] 105 mmol/L Normal 97-105 [facility] Comment on above: Order Comment: Speci men Type: BLOOD SPECIMENOrdering Facility: [facility] Address: [address] [place], [place] [address] Performed By: #### 2 4362-6 ####[facility] LABCLIA [id number] [place] [address] [place] CO2 [Moles/Vol] 23 mmol/L Normal 22-30 [facility] Comment on above: Order Comment: Speci men Type: BLOOD SPECIMENOrdering Facility: [facility] Address: [address] [place] [address] Performed By: #### 2 4362-6 ####[facility] LABCLIA [id number] [place] [address] [place] Creatinine [Mass/Vol] 0.47 mg/dL Low 0.58-0.96 [facility] Comment on above: Order Comment: Speci men Type: BLOOD SPECIMENOrdering Facility: [facility] Address: [facility] [place] [address] Performed By: #### 2 4362-6 ####[facility] LABCLIA [id number] [address] ESTIMATED GLOMERULAR FILTRATION RATE 112 mL/min/1.73m??? Normal >=60 [facility] Comment on above: Order Comment: [place] Type: BLOOD SPECIMENOrdering Facility: [facility] Address: [address] [place] [address] Result Comment: Maritza mated Glomerular Filtration Rate (eGFR) is calculated using the 2020 CKD-EPI creatinine equation. This equation utilizes serum creatinine, sex, and age as parameters. The creatinine assay has traceable calibration to isotope dilution-mass spectrometry. Refer to KDIGO guidelines for clinical interpretation. In patients with unstable renal function, e.g. those with acute kidney injury, the eGFR may not accurately reflect actual GFR. Performed By: #### 2 4362-6 ####[facility] LABCLIA [id number] [address] [facility] Glucose [Mass/Vol] 64 mg/dL Low 74-99 [facility] Comment on above: Order Comment: [place] Type: BLOOD SPECIMENOrdering Facility: [facility] Address: [address] [place] [address] Result Comment: The [place] Diabetes [employer] (ADA) provides guidance for cutoff values for fasting glucose and random glucose. The ADA defines fasting as no caloric intake for at least 8 hours. Fasting plasma glucose results between 100 to 125 mg/dL indicate increased risk for diabetes (prediabetes).Fasting plasma glucose results greater than or equal to 126 mg/dL meet the criteria for diagnosis of diabetes. In the absence of unequivocal hyperglycemia, results should be confirmed by repeat testing. In a patient with classic symptoms of hyperglycemia or hyperglycemic crisis, random plasma glucose results greater than or equal to 200 mg/dL meet the criteria for diagnosis of diabetes.Reference: Standards of Medical Care in Diabetes 2016, [place] [employer]. Diabetes Care. 2016.39(Suppl 1). Performed By: #### 2 4362-6 ####[facility] LABCLIA [id number] [place] [address] [place] Phosphate [Mass/Vol] 3.3 mg/dL Normal 2.7-4.8 [facility] Comment on above: Order Comment: Speci men Type: BLOOD SPECIMENOrdering Facility: [facility] Address: [address] [place] [address] Performed By: #### 2 4362-6 ####[facility] LABIA [id number] [place] [address] [place] Potassium [Moles/Vol] 4.3 mmol/L Normal 3.7-5.1 [facility] Comment on above: Order Comment: Speci men Type: BLOOD SPECIMENOrdering Facility: [facility] Address: [address] [place] [address] Performed By: #### 2 4362-6 ####[facility] LABIA [id number] [place] [address] [place] Sodium [Moles/Vol] 139 mmol/L Normal 136-144 [facility] Comment on above: Order Comment: Speci men Type: BLOOD SPECIMENOrdering Facility: [facility] Address: [address] [place], [place] [address] Performed By: #### 2 4362-6 ####[facility] LABIA [id number] [place] [address] [place] Urea nitrogen [Mass/Vol] 23 mg/dL High 7-21 [facility] Comment on above: Order Comment: Speci men Type: BLOOD SPECIMENOrdering Facility: [facility] Address: [address] [place] [address] Performed By: #### 2 4362-6 ####[facility] LABIA [id number] [place] [address] [place] THERAPY NTon 07-03-2022 THERAPY NT Normal [facility] Bacteria CSF Culton 07-03-19 23 Bacteria identified Cx Nom (CSF) CULTURE, CSF: No growth 14 days GRAM STAIN: No organisms seen No Polymorphonuclear Leukocytes No Mononuclear cells Gram stain performed on cytospun specimen. Normal [facility] Comment on above: Performed By: #### 6 06-4 ####[facility] LABCLIA [id number] [place] [address] [place] CBC panel Auto (Bld)on 07-02 Erythrocyte distribution width (RBC) [Ratio] 13.7 % Normal 11.5-15.0 [facility] Comment on above: Order Comment: Speci men Type: BLOOD SPECIMENOrdering Facility: [facility] Address: [address] [place] [address] Performed By: #### 5 8410-2 ####[facility] LABIA [id number] [place] [address] [place] Hematocrit (Bld) [Volume fraction] 35.6 % Low 36.0-46.0 [facility] Comment on above: Order Comment: Speci men Type: BLOOD SPECIMENOrdering Facility: [facility] Address: [address] [place] [address] Performed By: #### 5 8410-2 ####[facility] LABIA [id number] [address] [place] Hemoglobin (Bld) [Mass/Vol] 11.8 g/dL Normal 11.5-15.5 [facility] Comment on above: Order Comment: Speci men Type: BLOOD SPECIMENOrdering Facility: [facility] Address: [address] [place] [address] Performed By: #### 5 8410-2 ####[facility] LABIA [id number] [place] [address] [place] MCH (RBC) [Entitic mass] 30.3 pg Normal 26.0-34.0 [facility] Comment on above: Order Comment: Speci men Type: BLOOD SPECIMENOrdering Facility: [facility] Address: [address] Performed By: #### 5 8410-2 ####[facility] LABIA [id number] [address] [place] [facility] MCHC (RBC) [Mass/Vol] 33.1 g/dL Normal 30.5-36.0 [facility] Comment on above: Order Comment: Speci men Type: BLOOD SPECIMENOrdering Facility: [facility] Address: [address] Performed By: #### 5 8410-2 ####[facility] LABIA [id number] [place] [address] [place] MCV (RBC) [Entitic vol] 91.5 fL Normal 80.0-100.0 [facility] Comment on above: Order Comment: Speci men Type: BLOOD SPECIMENOrdering Facility: [facility] Address: [address] [place] [address] Performed By: #### 5 8410-2 ####[facility] LABIA [id number] [place] [address] [place] Nucleated RBC (Bld) [#/Vol] 10*3/uL Normal <0.01 [facility] Comment on above: Order Comment: Speci men Type: BLOOD SPECIMENOrdering Facility: [facility] Address: [address] [place] [address] Performed By: #### 5 8410-2 ####[facility] LABIA [id number] [place] [address] [place] Platelet mean volume (Bld) [Entitic vol] 9.3 fL Normal 9.0-12.7 [facility] Comment on above: Order Comment: Speci men Type: BLOOD SPECIMENOrdering Facility: [facility] Address: [address] [place] [address] Performed By: #### 5 8410-2 ####[facility] LABCLIA [id number] [place] [address] [place] Platelets (Bld) [#/Vol] 425 10*3/uL High 150-400 [facility] Comment on above: Order Comment: Speci men Type: BLOOD SPECIMENOrdering Facility: [facility] Address: [address] [place] [address] Performed By: #### 5 8410-2 ####[facility] LABCLIA [id number] [place] [address] [place] RBC (Bld) [#/Vol] 3.89 10*6/uL Low 3.90-5.20 [facility] Comment on above: Order Comment: Speci men Type: BLOOD SPECIMENOrdering Facility: [facility] Address: [address] [place] [address] Performed By: #### 5 8410-2 ####[facility] LABIA [id number] [place] [address] [place] WBC (Bld) [#/Vol] 5.83 10*3/uL Normal 3.70-11.00 [facility] Comment on above: Order Comment: Speci men Type: BLOOD SPECIMENOrdering Facility: [facility] Address: [address] [place] [address] Performed By: #### 5 8410-2 ####[facility] LABIA [id number] [place] [address] [place] CSF MANUAL DIFFon 07-02-2022 DIF TTL, CSF 100 cells counted Normal [facility] Comment on above: Order Comment: Speci men Type: CEREBROSPINAL FLUIDOrdering Facility: [facility] Address: [address] [place] [address] Performed By: #### 3 4563-7, [id number] ####[facility] LABCLIA [id number] [place] [address] [place] LYMPH%, CSF 80 % Normal 50-90 [facility] Comment on above: Order Comment: Speci men Type: CEREBROSPINAL FLUIDOrdering Facility: [facility] Address: [address] [place], [place] [address] Performed By: #### 3 4563-7, [id number] ####[facility] LABCLIA [id number] [place] [address] [place] MONO%, CSF 6 % Low 10-50 [facility] Comment on above: Order Comment: Speci men Type: CEREBROSPINAL FLUIDOrdering Facility: [facility] Address: [address] [place] [address] Performed By: #### 3 4563-7, [id number] ####[facility] LABCLIA [id number] [place] [address] [place] NEUT%, CSF 14 % High 0-3 [facility] Comment on above: Order Comment: Speci men Type: CEREBROSPINAL FLUIDOrdering Facility: [facility] Address: [address] [place] [address] Performed By: #### 3 4563-7, [id number] ####[facility] LABCLIA [id number] [address] [place] Cell count panel (CSF)on Clarity (CSF) Clear Normal Clear [facility] Comment on above: Order Comment: Speci men Type: CEREBROSPINAL FLUIDOrdering Facility: [facility] Address: [address] [place], [place] [address] Performed By: #### 3 4563-7, [id number] ####[facility] LABCLIA [id number] [address] [place] Clarity (Unsp spec) Not Indicated Normal Clear Cl [facility] Comment on above: Order Comment: Speci men Type: CEREBROSPINAL FLUIDOrdering Facility: [facility] Address: [address] [place], [place] [address] Performed By: #### 3 4563-7, [id number] ####[facility] LABCLIA [id number] [address] OF [facility] Color (CSF) Colorless Normal Colorless [facility] Comment on above: Order Comment: Speci men Type: CEREBROSPINAL FLUIDOrdering Facility: [facility] Address: [address] [place] [address] Performed By: #### 3 4563-7, [id number] ####[facility] LABCLIA [id number] [address] [place] Color (Spun CSF) Not Indicated Normal Colorless [facility] Comment on above: Order Comment: Speci men Type: CEREBROSPINAL FLUIDOrdering Facility: [facility] Address: [address] [place] [address] Performed By: #### 3 4563-7, [id number] ####[facility] LABCLIA [id number] [address] [place] CSF [employer] Normal Cl [facility] Comment on above: Order Comment: Speci men Type: CEREBROSPINAL FLUIDOrdering Facility: [facility] Address: [address] [place] [address] Performed By: #### 3 4563-7, [id number] ####[facility] LABCLIA [id number] [place] [address] [place] RBC Manual cnt (CSF) [#/Vol] 24 cells/uL High 0-5 [facility] Comment on above: Order Comment: Speci men Type: CEREBROSPINAL FLUIDOrdering Facility: [facility] Address: [address] [place] [address] Performed By: #### 3 4563-7, [id number] ####[facility] LABCLIA [id number] [address] [place] WBC Manual cnt (CSF) [#/Vol] 1 cells/uL Normal 0-5 [facility] Comment on above: Order Comment: Speci men Type: CEREBROSPINAL FLUIDOrdering Facility: [facility] Address: [address] [place] [address] Performed By: #### 3 4563-7, [id number] ####[facility] LABCLIA [id number] [place] [address] [place] Glucose CSF-mCncon 3 Glucose (CSF) [Mass/Vol] 58 mg/dL Normal 40-70 [facility] Comment on above: Order Comment: Speci men Type: CEREBROSPINAL FLUIDOrdering Facility: [facility] Address: [address] [place], [place] [address] Result Comment: Lumb ar CSF glucose values of healthy patients are approximately 60% of the plasma values and must always be compared with a concurrently measured plasma value for adequate clinical interpretation.References: 1. Glucose HK (GLUC3) [package insert V 12.0 Stateless]. [employer], [place], [place]. August 2015. 2. Ritesh Addison, Misbah HGiancarlo (2015). Chapter 7: Glucose and Lactate. F. Yoselyn keith al.(eds.), Cerebrospinal Fluid in Clinical Neurology. [place]: [employer]. Performed By: #### 2 342-4, 2880-3 ####[facility] LABIA [id number] [place] [address] [place] Prot CSF-ncon 07-02-2022 Protein (CSF) [Mass/Vol] 36 mg/dL Normal 15-45 [facility] Comment on above: Order Comment: Speci men Type: CEREBROSPINAL FLUIDOrdering Facility: [facility] Address: [address] [place] [address] Performed By: #### 2 342-4, 2880-3 ####[facility] LABIA [id number] [place] [address] [place] Renal function 2000 panelon 07-02-2022 Albumin [Mass/Vol] 3.8 g/dL Low 3.9-4.9 [facility] Comment on above: Order Comment: Speci men Type: BLOOD SPECIMENOrdering Facility: [facility] Address: [address] [place] [address] Performed By: #### 2 4362-6 ####[facility] LABCLIA [id number] [place] [address] [place] Anion gap [Moles/Vol] 10 mmol/L Normal 9-18 [facility] Comment on above: Order Comment: Speci men Type: BLOOD SPECIMENOrdering Facility: [facility] Address: [address] Performed By: #### 2 4362-6 ####[facility] LABCLIA [id number] [place] [address] [place] Calcium [Mass/Vol] 9.7 mg/dL Normal 8.5-10.2 [facility] Comment on above: Order Comment: Speci men Type: BLOOD SPECIMENOrdering Facility: [facility] Address: [address] Performed By: #### 2 4362-6 ####[facility] LABCLIA [id number] [place] [address] [place] Chloride [Moles/Vol] 108 mmol/L High 97-105 [facility] Comment on above: Order Comment: Speci men Type: BLOOD SPECIMENOrdering Facility: [facility] Address: [address] [place] [address] Performed By: #### 2 4362-6 ####[facility] LABCLIA [id number] [place] [address] [place] CO2 [Moles/Vol] 22 mmol/L Normal 22-30 [facility] Comment on above: Order Comment: Speci men Type: BLOOD SPECIMENOrdering Facility: [facility] Address: [address] [place] [address] Performed By: #### 2 4362-6 ####[facility] LABCLIA [id number] [place] [address] [place] Creatinine [Mass/Vol] 0.42 mg/dL Low 0.58-0.96 [facility] Comment on above: Order Comment: [place] Type: BLOOD SPECIMENOrdering Facility: [facility] Address: [address] [place] [address] Performed By: #### 2 4362-6 ####[facility] LABIA [id number] [address] [place] ESTIMATED GLOMERULAR FILTRATION RATE 115 mL/min/1.73m??? Normal >=60 [facility] Comment on above: Order Comment: [place] Type: BLOOD SPECIMENOrdering Facility: [facility] Address: [address] [place] [address] Result Comment: Maritza mated Glomerular Filtration Rate (eGFR) is calculated using the 2020 CKD-EPI creatinine equation. This equation utilizes serum creatinine, sex, and age as parameters. The creatinine assay has traceable calibration to isotope dilution-mass spectrometry. Refer to KDIGO guidelines for clinical interpretation. In patients with unstable renal function, e.g. those with acute kidney injury, the eGFR may not accurately reflect actual GFR. Performed By: #### 2 4362-6 ####[facility] LABIA [id number] [place] [address] [place] Glucose [Mass/Vol] 67 mg/dL Low 74-99 [facility] Comment on above: Order Comment: [place] Type: BLOOD SPECIMENOrdering Facility: [facility] Address: [address] [place] [address] Result Comment: The [place] Diabetes Association (ADA) provides guidance for cutoff values for fasting glucose and random glucose. The ADA defines fasting as no caloric intake for at least 8 hours. Fasting plasma glucose results between 100 to 125 mg/dL indicate increased risk for diabetes (prediabetes).Fasting plasma glucose results greater than or equal to 126 mg/dL meet the criteria for diagnosis of diabetes. In the absence of unequivocal hyperglycemia, results should be confirmed by repeat testing. In a patient with classic symptoms of hyperglycemia or hyperglycemic crisis, random plasma glucose results greater than or equal to 200 mg/dL meet the criteria for diagnosis of diabetes.Reference: Standards of Medical Care in Diabetes 2016, [place] [employer]. Diabetes Care. 2016.39(Suppl 1). Performed By: #### 2 4362-6 ####[facility] LABIA [id number] [place] [address] [place] Phosphate [Mass/Vol] 2.9 mg/dL Normal 2.7-4.8 [facility] Comment on above: Order Comment: Speci men Type: BLOOD SPECIMENOrdering Facility: [facility] Address: [address] [place] [address] Performed By: #### 2 4362-6 ####[facility] [id number] [place] [address] [place] Potassium [Moles/Vol] 3.9 mmol/L Normal 3.7-5.1 [facility] Comment on above: Order Comment: Speci men Type: BLOOD SPECIMENOrdering Facility: [facility] Address: [address] [place] [address] Performed By: #### 2 4362-6 ####[facility] LABIA [id number] [place] [address] [place] Sodium [Moles/Vol] 140 mmol/L Normal 136-144 [facility] Comment on above: Order Comment: Speci men Type: BLOOD SPECIMENOrdering Facility: [facility] Address: [address] Performed By: #### 2 4362-6 ####[facility] LABIA [id number] [place] [address] [place] Urea nitrogen [Mass/Vol] 23 mg/dL High 7-21 [facility] Comment on above: Order Comment: Speci men Type: BLOOD SPECIMENOrdering Facility: [facility] Address: [address] Performed By: #### 2 4362-6 ####[facility] LABCLIA [id number] [address] [place] CBC panel Auto (Bld)on 07-01 Erythrocyte distribution width (RBC) [Ratio] 13.9 % Normal 11.5-15.0 [facility] Comment on above: Order Comment: Speci men Type: BLOOD SPECIMENOrdering Facility: [facility] Address: [address] [place] [address] Performed By: #### 5 8410-2 ####[facility] LABIA [id number] [address] [place] Hematocrit (Bld) [Volume fraction] 32.8 % Low 36.0-46.0 [facility] Comment on above: Order Comment: Speci men Type: BLOOD SPECIMENOrdering Facility: [facility] Address: [address] [place], [place] [address] Performed By: #### 5 8410-2 ####[facility] LABIA [id number] [address] [place] Hemoglobin (Bld) [Mass/Vol] 10.7 g/dL Low 11.5-15.5 [facility] Comment on above: Order Comment: Speci men Type: BLOOD SPECIMENOrdering Facility: [facility] Address: [address] [place], [place] [address] Performed By: #### 5 8410-2 ####[facility] LABCLIA [id number] [place] [address] [place] MCH (RBC) [Entitic mass] 31.0 pg Normal 26.0-34.0 [facility] Comment on above: Order Comment: Speci men Type: BLOOD SPECIMENOrdering Facility: [facility] Address: [address] [place], [place] [address] Performed By: #### 5 8410-2 ####[facility] LABIA [id number] [place] [address] [place] MCHC (RBC) [Mass/Vol] 32.6 g/dL Normal 30.5-36.0 [facility] Comment on above: Order Comment: Speci men Type: BLOOD SPECIMENOrdering Facility: [facility] Address: [address] [place] [address] Performed By: #### 5 8410-2 ####[facility] [id number] [place] [address] [place] MCV (RBC) [Entitic vol] 95.1 fL Normal 80.0-100.0 [facility] Comment on above: Order Comment: Speci men Type: BLOOD SPECIMENOrdering Facility: [facility] Address: [address] [place] [address] Performed By: #### 5 8410-2 ####[facility] [id number] [place] [address] [place] Nucleated RBC (Bld) [#/Vol] 10*3/uL Normal <0.01 [facility] Comment on above: Order Comment: Speci men Type: BLOOD SPECIMENOrdering Facility: [facility] Address: [address] [place], [place] [address] Performed By: #### 5 8410-2 ####[facility] [id number] [place] [address] [place] Platelet mean volume (Bld) [Entitic vol] 9.8 fL Normal 9.0-12.7 [facility] Comment on above: Order Comment: Speci men Type: BLOOD SPECIMENOrdering Facility: [facility] Address: [address] [place], [place] [address] Performed By: #### 5 8410-2 ####[facility] [id number] [place] [address] [place] Platelets (Bld) [#/Vol] 353 10*3/uL Normal 150-400 [facility] Comment on above: Order Comment: Speci men Type: BLOOD SPECIMENOrdering Facility: [facility] Address: [address] [place], [place] [address] Performed By: #### 5 8410-2 ####[facility] LABCLIA [id number] [place] [address] [place] RBC (Bld) [#/Vol] 3.45 10*6/uL Low 3.90-5.20 [facility] Comment on above: Order Comment: Speci men Type: BLOOD SPECIMENOrdering Facility: [facility] Address: [address] [place], [place] [address] Performed By: #### 5 8410-2 ####[facility] LABCLIA [id number] [place] [address] [place] WBC (Bld) [#/Vol] 5.14 10*3/uL Normal 3.70-11.00 [facility] Comment on above: Order Comment: Speci men Type: BLOOD SPECIMENOrdering Facility: [facility] Address: [address] [place], [place] [address] Performed By: #### 5 8410-2 ####[facility] LABCLIA [id number] [place] [address] [place] Renal function 2000 panelon 07-01-2022 Albumin [Mass/Vol] 3.4 g/dL Low 3.9-4.9 [facility] Comment on above: Order Comment: Speci men Type: BLOOD SPECIMENOrdering Facility: [facility] Address: [address] [place], [place] [address] Performed By: #### 2 4362-6 ####[facility] LABCLIA [id number] [place] [address] [place] Anion gap [Moles/Vol] 13 mmol/L Normal 9-18 [facility] Comment on above: Order Comment: Speci men Type: BLOOD SPECIMENOrdering Facility: [facility] Address: [address] Performed By: #### 2 4362-6 ####[facility] LABCLIA [id number] [place] [address] [place] Calcium [Mass/Vol] 9.5 mg/dL Normal 8.5-10.2 [facility] Comment on above: Order Comment: Speci men Type: BLOOD SPECIMENOrdering Facility: [facility] Address: [address] Performed By: #### 2 4362-6 ####[facility] LABCLIA [id number] [place] [address] [place] Chloride [Moles/Vol] 104 mmol/L Normal 97-105 [facility] Comment on above: Order Comment: Speci men Type: BLOOD SPECIMENOrdering Facility: [facility] Address: [address] Performed By: #### 2 4362-6 ####[facility] LABCLIA [id number] [place] [address] [place] CO2 [Moles/Vol] 18 mmol/L Low 22-30 [facility] Comment on above: Order Comment: Speci men Type: BLOOD SPECIMENOrdering Facility: [facility] Address: [address] Performed By: #### 2 4362-6 ####[facility] LABCLIA [id number] [place] [address] [place] Creatinine [Mass/Vol] 0.41 mg/dL Low 0.58-0.96 [facility] Comment on above: Order Comment: Speci men Type: BLOOD SPECIMENOrdering Facility: [facility] Address: [address] Performed By: #### 2 4362-6 ####[facility] LABCLIA [id number] [place] [address] [place] ESTIMATED GLOMERULAR FILTRATION RATE 116 mL/min/1.73m??? Normal >=60 [facility] Comment on above: Order Comment: Patrick hill Type: BLOOD SPECIMENOrdering Facility: [facility] Address: [address] [place] [address] Result Comment: Maritza mated Glomerular Filtration Rate (eGFR) is calculated using the 2020 CKD-EPI creatinine equation. This equation utilizes serum creatinine, sex, and age as parameters. The creatinine assay has traceable calibration to isotope dilution-mass spectrometry. Refer to KDIGO guidelines for clinical interpretation. In patients with unstable renal function, e.g. those with acute kidney injury, the eGFR may not accurately reflect actual GFR. Performed By: #### 2 4362-6 ####[facility] LABIA [id number] [place] [address] [place] Glucose [Mass/Vol] 247 mg/dL High 74-99 [facility] Comment on above: Order Comment: Patrick [place] Type: BLOOD SPECIMENOrdering Facility: [facility] Address: [address] [place] [address] Result Comment: The [place] [employer] (ADA) provides guidance for cutoff values for fasting glucose and random glucose. The ADA defines fasting as no caloric intake for at least 8 hours. Fasting plasma glucose results between 100 to 125 mg/dL indicate increased risk for diabetes (prediabetes).Fasting plasma glucose results greater than or equal to 126 mg/dL meet the criteria for diagnosis of diabetes. In the absence of unequivocal hyperglycemia, results should be confirmed by repeat testing. In a patient with classic symptoms of hyperglycemia or hyperglycemic crisis, random plasma glucose results greater than or equal to 200 mg/dL meet the criteria for diagnosis of diabetes.Reference: Standards of Medical Care in Diabetes 2016, [place] [employer]. Diabetes Care. 2016.39(Suppl 1). Performed By: #### 2 4362-6 ####[facility] LABCLIA [id number] [place] [address] [place] Phosphate [Mass/Vol] 3.2 mg/dL Normal 2.7-4.8 [facility] Comment on above: Order Comment: Speci men Type: BLOOD SPECIMENOrdering Facility: [facility] Address: [address] [place] [address] Performed By: #### 2 4362-6 ####[facility] LABCLIA [id number] [place] [address] [place] Potassium [Moles/Vol] 4.5 mmol/L Normal 3.7-5.1 [facility] Comment on above: Order Comment: Speci men Type: BLOOD SPECIMENOrdering Facility: [facility] Address: [address] [place] [address] Performed By: #### 2 4362-6 ####[facility] LABIA [id number] [place] [address] [place] Sodium [Moles/Vol] 135 mmol/L Low 136-144 [facility] Comment on above: Order Comment: Speci men Type: BLOOD SPECIMENOrdering Facility: [facility] Address: [address] [place] [address] Performed By: #### 2 4362-6 ####[facility] LABIA [id number] [place] [address] [place] Urea nitrogen [Mass/Vol] 29 mg/dL High 7-21 [facility] Comment on above: Order Comment: Speci men Type: BLOOD SPECIMENOrdering Facility: [facility] Address: [address] [place], [place] [address] Performed By: #### 2 4362-6 ####[facility] LABIA [id number] [place] [address] [place] THERAPY NTon 07-01-2022 THERAPY NT Normal [facility] (1,3)-F-D-EYEOATjy 3 (1,3) B-D GLUCAN <31 Normal <60 [facility] Comment on above: Order Comment: Speci men Type: BLOOD SPECIMENOrdering Facility: [facility] Address: [address] [address] Performed By: #### B DGLUC ####[facility] LABCLIA [id number] [place] [address] [place] (1,3) B-D GLUCAN QUAL Negative Normal Negative [facility] Comment on above: Order Comment: Speci men Type: BLOOD SPECIMENOrdering Facility: [facility] Address: [address] [place] [address] Performed By: #### B DGLUC ####[facility] LABIA [id number] [place] [address] [place] ALLIED HEALTHon 06-30-2022 ALLIED HEALTH Normal [facility] ASPERGILLUS GALACTOMANNAN SE RUMon 06-30-2022 ASPERGILLUS GALACTOMANNAN 0.08 Index Value Normal <=0.49 [facility] Comment on above: Order Comment: Speci men Type: BLOOD SPECIMENOrdering Facility: [facility] Address: [address] [place] [address] Performed By: #### A SGALS ####[facility] LABIA [id number] [address] Galactomannan Ag [place] Ql Negative Normal Negative [facility] Comment on above: Order Comment: Speci men Type: BLOOD SPECIMENOrdering Facility: [facility] Address: [address] [place] [address] Result Comment: Aspe rgillus Galactomannan antigen assay is used as an aid in diagnosis of invasive aspergillosis in immunocompromised individuals especially in post-stem cell transplant, hematological malignancies on chemotherapy, and HIV-positive patients with very low CD4 T-cell counts. The test may also be used in disease prognostication and for monitoring response to anti-fungal therapy. False positive and false negative results are not uncommon. Clinical and radiological correlation is required. Performed By: #### A SGALS ####[facility] LABCLIA [id number] [place] [address] [place] CASE MANAGEMon 06-30-2022 CASE MANAGEM Normal [facility] CBC panel Auto (Bld)on 06-30 Erythrocyte distribution width (RBC) [Ratio] 14.2 % Normal 11.5-15.0 [facility] Comment on above: Order Comment: Speci men Type: BLOOD SPECIMENOrdering Facility: [facility] Address: [address] [place] [address] Performed By: #### 5 8410-2 ####[facility] LABIA [id number] [address] [place] Hematocrit (Bld) [Volume fraction] 35.1 % Low 36.0-46.0 [facility] Comment on above: Order Comment: Speci men Type: BLOOD SPECIMENOrdering Facility: [facility] Address: [address] [place] [address] Performed By: #### 5 8410-2 ####[facility] LABIA [id number] [address] [place] Hemoglobin (Bld) [Mass/Vol] 11.3 g/dL Low 11.5-15.5 [facility] Comment on above: Order Comment: Speci men Type: BLOOD SPECIMENOrdering Facility: [facility] Address: [address] [place] [address] Performed By: #### 5 8410-2 ####[facility] LABIA [id number] [address] [place] MCH (RBC) [Entitic mass] 30.5 pg Normal 26.0-34.0 [facility] Comment on above: Order Comment: Speci men Type: BLOOD SPECIMENOrdering Facility: [facility] Address: [address] [place] [address] Performed By: #### 5 8410-2 ####[facility] LABIA [id number] [place] [address] [place] MCHC (RBC) [Mass/Vol] 32.2 g/dL Normal 30.5-36.0 [facility] Comment on above: Order Comment: Speci men Type: BLOOD SPECIMENOrdering Facility: [facility] Address: [address] [place] [address] Performed By: #### 5 8410-2 ####[facility] LABCLIA [id number] [place] [address] [place] MCV (RBC) [Entitic vol] 94.6 fL Normal 80.0-100.0 C [facility] Comment on above: Order Comment: Speci men Type: BLOOD SPECIMENOrdering Facility: [facility] Address: [address] [place], [place] [address] Performed By: #### 5 8410-2 ####[facility] LABIA [id number] [place] [address] [place] Nucleated RBC (Bld) [#/Vol] 10*3/uL Normal <0.01 [facility] Comment on above: Order Comment: Speci men Type: BLOOD SPECIMENOrdering Facility: [facility] Address: [address] [place], [place] [address] Performed By: #### 5 8410-2 ####[facility] LABIA [id number] [place] [address] [place] Platelet mean volume (Bld) [Entitic vol] 9.9 fL Normal 9.0-12.7 [facility] Comment on above: Order Comment: Speci men Type: BLOOD SPECIMENOrdering Facility: [facility] Address: [address] [place] [address] Performed By: #### 5 8410-2 ####[facility] LABCLIA [id number] [place] [address] [place] Platelets (Bld) [#/Vol] 389 10*3/uL Normal 150-400 [facility] Comment on above: Order Comment: Speci men Type: BLOOD SPECIMENOrdering Facility: [facility] Address: [address] Performed By: #### 5 8410-2 ####[facility] LABIA [id number] [place] [address] [place] RBC (Bld) [#/Vol] 3.71 10*6/uL Low 3.90-5.20 [facility] Comment on above: Order Comment: Speci men Type: BLOOD SPECIMENOrdering Facility: [facility] Address: [address] Performed By: #### 5 8410-2 ####[facility] LABIA [id number] [place] [address] [place] WBC (Bld) [#/Vol] 5.13 10*3/uL Normal 3.70-11.00 [facility] Comment on above: Order Comment: Speci men Type: BLOOD SPECIMENOrdering Facility: [facility] Address: [address] Performed By: #### 5 8410-2 ####[facility] LABIA [id number] [place] [address] [place] CONSULTon 06-30-2022 CONSULT Normal [facility] CONSULT PROGon 06-30-2022 CONSULT PROG Normal [facility] NUTRITIONon 06-30-2022 NUTRITION Normal [facility] Renal function 2000 panelon 06-30-2022 Albumin [Mass/Vol] 3.8 g/dL Low 3.9-4.9 [facility] Comment on above: Order Comment: Speci men Type: BLOOD SPECIMENOrdering Facility: [facility] Address: [address] [place] [address] Performed By: #### 2 4362-6 ####[facility] LABCLIA [id number] [place] [address] [place] Anion gap [Moles/Vol] 13 mmol/L Normal 9-18 [facility] Comment on above: Order Comment: Speci men Type: BLOOD SPECIMENOrdering Facility: [facility] Address: [address] Performed By: #### 2 4362-6 ####[facility] LABCLIA [id number] [place] [address] [place] Calcium [Mass/Vol] 9.6 mg/dL Normal 8.5-10.2 [facility] Comment on above: Order Comment: Speci men Type: BLOOD SPECIMENOrdering Facility: [facility] Address: [address] Performed By: #### 2 4362-6 ####[facility] LABCLIA [id number] [place] [address] [place] Chloride [Moles/Vol] 105 mmol/L Normal 97-105 [facility] Comment on above: Order Comment: Speci men Type: BLOOD SPECIMENOrdering Facility: [facility] Address: [address] Performed By: #### 2 4362-6 ####[facility] LABCLIA [id number] [place] [address] [place] CO2 [Moles/Vol] 22 mmol/L Normal 22-30 [facility] Comment on above: Order Comment: Speci men Type: BLOOD SPECIMENOrdering Facility: [facility] Address: [address] Performed By: #### 2 4362-6 ####[facility] LABCLIA [id number] [place] [address] [place] Creatinine [Mass/Vol] 0.37 mg/dL Low 0.58-0.96 [facility] Comment on above: Order Comment: Speci men Type: BLOOD SPECIMENOrdering Facility: [facility] Address: [address] Performed By: #### 2 4362-6 ####[facility] LABCLIA [id number] [address] ESTIMATED GLOMERULAR FILTRATION RATE 119 mL/min/1.73m??? Normal >=60 [facility] Comment on above: Order Comment: Specchristiane hill Type: BLOOD SPECIMENOrdering Facility: [facility] Address: [address] [place] [address] Result Comment: Maritza mated Glomerular Filtration Rate (eGFR) is calculated using the 2020 CKD-EPI creatinine equation. This equation utilizes serum creatinine, sex, and age as parameters. The creatinine assay has traceable calibration to isotope dilution-mass spectrometry. Refer to KDIGO guidelines for clinical interpretation. In patients with unstable renal function, e.g. those with acute kidney injury, the eGFR may not accurately reflect actual GFR. Performed By: #### 2 4362-6 ####[facility] [id number] [address] [place] [facility] Glucose [Mass/Vol] 247 mg/dL High 74-99 [facility] Comment on above: Order Comment: Specchristiane hill Type: BLOOD SPECIMENOrdering Facility: [facility] Address: [address] [place] [address] Result Comment: The [place] [employer] (ADA) provides guidance for cutoff values for fasting glucose and random glucose. The ADA defines fasting as no caloric intake for at least 8 hours. Fasting plasma glucose results between 100 to 125 mg/dL indicate increased risk for diabetes (prediabetes).Fasting plasma glucose results greater than or equal to 126 mg/dL meet the criteria for diagnosis of diabetes. In the absence of unequivocal hyperglycemia, results should be confirmed by repeat testing. In a patient with classic symptoms of hyperglycemia or hyperglycemic crisis, random plasma glucose results greater than or equal to 200 mg/dL meet the criteria for diagnosis of diabetes.Reference: Standards of Medical Care in Diabetes 2016, [place] [employer]. Diabetes Care. 2016.39(Suppl 1). Performed By: #### 2 4362-6 ####[facility] LABIA [id number] [place] [address] [place] Phosphate [Mass/Vol] 2.7 mg/dL Normal 2.7-4.8 [facility] Comment on above: Order Comment: Speci men Type: BLOOD SPECIMENOrdering Facility: [facility] Address: [address] [place], [place] [address] Performed By: #### 2 4362-6 ####[facility] LABCLIA [id number] [place] [address] [place] Potassium [Moles/Vol] 3.7 mmol/L Normal 3.7-5.1 [facility] Comment on above: Order Comment: Speci men Type: BLOOD SPECIMENOrdering Facility: [facility] Address: [address] [place] [address] Performed By: #### 2 4362-6 ####[facility] LABCLIA [id number] [place] [address] [place] Sodium [Moles/Vol] 140 mmol/L Normal 136-144 [facility] Comment on above: Order Comment: Speci men Type: BLOOD SPECIMENOrdering Facility: [facility] Address: [address] [place], [place] [address] Performed By: #### 2 4362-6 ####[facility] LABCLIA [id number] [place] [address] [place] Urea nitrogen [Mass/Vol] 20 mg/dL Normal 7-21 [facility] Comment on above: Order Comment: Speci men Type: BLOOD SPECIMENOrdering Facility: [facility] Address: [address] [place], [place] [address] Performed By: #### 2 4362-6 ####[facility] LABCLIA [id number] [place] [address] [place] THERAPY NTon 06-30-2022 THERAPY NT Normal [facility] CBC panel Auto (Bld)on 06-29 Erythrocyte distribution width (RBC) [Ratio] 14.5 % Normal 11.5-15.0 [facility] Comment on above: Order Comment: Speci men Type: BLOOD SPECIMENOrdering Facility: [facility] Address: [address] [address] Performed By: #### 5 8410-2 ####[facility] LABIA [id number] [place] [address] [place] Hematocrit (Bld) [Volume fraction] 31.0 % Low 36.0-46.0 [facility] Comment on above: Order Comment: Speci men Type: BLOOD SPECIMENOrdering Facility: [facility] Address: [address] [address] Performed By: #### 5 8410-2 ####[facility] LABIA [id number] [place] [address] [place] Hemoglobin (Bld) [Mass/Vol] 10.1 g/dL Low 11.5-15.5 [facility] Comment on above: Order Comment: Speci men Type: BLOOD SPECIMENOrdering Facility: [facility] Address: [address] [place], [place] [address] Performed By: #### 5 8410-2 ####[facility] LABIA [id number] [place] [address] [place] MCH (RBC) [Entitic mass] 30.7 pg Normal 26.0-34.0 [facility] Comment on above: Order Comment: Speci men Type: BLOOD SPECIMENOrdering Facility: [facility] Address: [address] Performed By: #### 5 8410-2 ####[facility] LABIA [id number] [place] [address] [place] MCHC (RBC) [Mass/Vol] 32.6 g/dL Normal 30.5-36.0 [facility] Comment on above: Order Comment: Speci men Type: BLOOD SPECIMENOrdering Facility: [facility] Address: [address] [place] [address] Performed By: #### 5 8410-2 ####[facility] LABCLIA [id number] [place] [address] [place] MCV (RBC) [Entitic vol] 94.2 fL Normal 80.0-100.0 C [facility] Comment on above: Order Comment: Speci men Type: BLOOD SPECIMENOrdering Facility: [facility] Address: [address] [place] [address] Performed By: #### 5 8410-2 ####[facility] LABIA [id number] [address] [place] Nucleated RBC (Bld) [#/Vol] 10*3/uL Normal <0.01 [facility] Comment on above: Order Comment: Speci men Type: BLOOD SPECIMENOrdering Facility: [facility] Address: [address] Performed By: #### 5 8410-2 ####[facility] LABIA [id number] [place] [address] [place] Platelet mean volume (Bld) [Entitic vol] 9.6 fL Normal 9.0-12.7 [facility] Comment on above: Order Comment: Speci men Type: BLOOD SPECIMENOrdering Facility: [facility] Address: [address] [place] [address] Performed By: #### 5 8410-2 ####[facility] LABIA [id number] [place] [address] [place] Platelets (Bld) [#/Vol] 329 10*3/uL Normal 150-400 [facility] Comment on above: Order Comment: Speci men Type: BLOOD SPECIMENOrdering Facility: [facility] Address: [address] Performed By: #### 5 8410-2 ####[facility] LABCLIA [id number] [place] [address] [place] RBC (Bld) [#/Vol] 3.29 10*6/uL Low 3.90-5.20 [facility] Comment on above: Order Comment: Speci men Type: BLOOD SPECIMENOrdering Facility: [facility] Address: [address] [place] [address] Performed By: #### 5 8410-2 ####[facility] LABIA [id number] [place] [address] [place] WBC (Bld) [#/Vol] 6.62 10*3/uL Normal 3.70-11.00 [facility] Comment on above: Order Comment: Speci men Type: BLOOD SPECIMENOrdering Facility: [facility] Address: [address] [place] [address] Performed By: #### 5 8410-2 ####[facility] LABIA [id number] [place] [address] [place] CONSULT PROGon 06-29-2022 CONSULT PROG Normal [facility] Renal function 2000 panelon 06-29-2022 Albumin [Mass/Vol] 3.4 g/dL Low 3.9-4.9 [facility] Comment on above: Order Comment: Speci men Type: BLOOD SPECIMENOrdering Facility: [facility] Address: [address] [place], [place] [address] Performed By: #### 2 4362-6 ####[facility] LABIA [id number] [place] [address] [place] Anion gap [Moles/Vol] 8 mmol/L Low 9-18 [facility] Comment on above: Order Comment: Speci men Type: BLOOD SPECIMENOrdering Facility: [facility] Address: [address] [place] [address] Performed By: #### 2 4362-6 ####[facility] LABIA [id number] [place] [address] [place] Calcium [Mass/Vol] 9.2 mg/dL Normal 8.5-10.2 [facility] Comment on above: Order Comment: Speci men Type: BLOOD SPECIMENOrdering Facility: [facility] Address: [address] [place] [address] Performed By: #### 2 4362-6 ####[facility] LABCLIA [id number] [place] [address] [place] Chloride [Moles/Vol] 109 mmol/L High 97-105 [facility] Comment on above: Order Comment: Speci men Type: BLOOD SPECIMENOrdering Facility: [facility] Address: [address] [place] [address] Performed By: #### 2 4362-6 ####[facility] LABCLIA [id number] [place] [address] [place] CO2 [Moles/Vol] 20 mmol/L Low 22-30 [facility] Comment on above: Order Comment: Speci men Type: BLOOD SPECIMENOrdering Facility: [facility] Address: [address] [place], [place] [address] Performed By: #### 2 4362-6 ####[facility] LABCLIA [id number] [place] [address] [place] Creatinine [Mass/Vol] 0.44 mg/dL Low 0.58-0.96 [facility] Comment on above: Order Comment: Speci men Type: BLOOD SPECIMENOrdering Facility: [facility] Address: [address] [place], [place] [address] Performed By: #### 2 4362-6 ####[facility] LABCLIA [id number] [place] [address] [place] ESTIMATED GLOMERULAR FILTRATION RATE 114 mL/min/1.73m??? Normal >=60 [facility] Comment on above: Order Comment: Speci men Type: BLOOD SPECIMENOrdering Facility: [facility] Address: [address] [id number] Result Comment: Maritza mated Glomerular Filtration Rate (eGFR) is calculated using the 2020 CKD-EPI creatinine equation. This equation utilizes serum creatinine, sex, and age as parameters. The creatinine assay has traceable calibration to isotope dilution-mass spectrometry. Refer to KDIGO guidelines for clinical interpretation. In patients with unstable renal function, e.g. those with acute kidney injury, the eGFR may not accurately reflect actual GFR. Performed By: #### 2 4362-6 ####[facility] LABCLIA [id number] [place] [address] [place] Glucose [Mass/Vol] 48 mg/dL Low 74-99 [facility] Comment on above: Order Comment: Specchristiane hill Type: BLOOD SPECIMENOrdering Facility: [facility] Address: [address] [address] Result Comment: The [place] Diabetes Association (ADA) provides guidance for cutoff values for fasting glucose and random glucose. The ADA defines fasting as no caloric intake for at least 8 hours. Fasting plasma glucose results between 100 to 125 mg/dL indicate increased risk for diabetes (prediabetes).Fasting plasma glucose results greater than or equal to 126 mg/dL meet the criteria for diagnosis of diabetes. In the absence of unequivocal hyperglycemia, results should be confirmed by repeat testing. In a patient with classic symptoms of hyperglycemia or hyperglycemic crisis, random plasma glucose results greater than or equal to 200 mg/dL meet the criteria for diagnosis of diabetes.Reference: Standards of Medical Care in Diabetes 2016, [place] [employer] Association. Diabetes Care. 2016.39(Suppl 1). Performed By: #### 2 4362-6 ####[facility] LABCLIA [id number] [place] [id number] [place] Phosphate [Mass/Vol] 2.7 mg/dL Normal 2.7-4.8 [facility] Comment on above: Order Comment: Patrick hill Type: BLOOD SPECIMENOrdering Facility: [facility] Address: [address] [phone] Performed By: #### 2 4362-6 ####[facility] LABCLIA [id number] [place] [address] [place] Potassium [Moles/Vol] 3.2 mmol/L Low 3.7-5.1 [facility] Comment on above: Order Comment: Speci men Type: BLOOD SPECIMENOrdering Facility: [facility] Address: [address] [place] [address] Performed By: #### 2 4362-6 ####[facility] LABCLIA [id number] [place] [address] [place] Sodium [Moles/Vol] 137 mmol/L Normal 136-144 [facility] Comment on above: Order Comment: Speci men Type: BLOOD SPECIMENOrdering Facility: [facility] Address: [address] [place] [address] Performed By: #### 2 4362-6 ####[facility] LABCLIA [id number] [address] [place] Urea nitrogen [Mass/Vol] 21 mg/dL Normal 7-21 [facility] Comment on above: Order Comment: Speci men Type: BLOOD SPECIMENOrdering Facility: [facility] Address: [address] [place] [address] Performed By: #### 2 4362-6 ####[facility] LABCLIA [id number] [place] [address] [place] TYPE + SCREENon 06-29-2022 ABO A Normal [facility] Comment on above: Order Comment: Speci men Type: BLOOD SPECIMENOrdering Facility: [facility] Address: [address] [place], [place] [address] Performed By: #### T SCR ####CC [facility] BLOOD BANKCLIA [id number] [place] [address] [place] HISTORICAL AB SCR STATUS Negative Normal [facility] Comment on above: Order Comment: Speci men Type: BLOOD SPECIMENOrdering Facility: [facility] Address: [address] Performed By: #### T SCR ####CC [facility] BLOOD BANKCLIA [id number] [address] Rh Nom (Bld) Positive Normal [facility] Comment on above: Order Comment: Speci men Type: BLOOD SPECIMENOrdering Facility: [facility] Address: [address] Performed By: #### T SCR ####CC [facility] BLOOD BANKCLIA [id number] [address] [place] TYPE AND SCREEN EXPIRATION 07/02/2022 23:59 Normal [facility] Comment on above: Order Comment: Speci men Type: BLOOD SPECIMENOrdering Facility: [facility] Address: [address] Performed By: #### T SCR ####CC [facility] BLOOD BANKCLIA [id number] [address] [place] CBC panel Auto (Bld)on 06-28 Erythrocyte distribution width (RBC) [Ratio] 15.0 % Normal 11.5-15.0 [facility] Comment on above: Order Comment: Speci men Type: BLOOD SPECIMENOrdering Facility: [facility] Address: [address] Performed By: #### 5 8410-2 ####[facility] LABCLIA [id number] [address] Hematocrit (Bld) [Volume fraction] 31.4 % Low 36.0-46.0 [facility] Comment on above: Order Comment: Speci men Type: BLOOD SPECIMENOrdering Facility: [facility] Address: [address] Performed By: #### 5 8410-2 ####[facility] LABCLIA [id number] [address] STATES OF [facility] Hemoglobin (Bld) [Mass/Vol] 10.0 g/dL Low 11.5-15.5 [facility] Comment on above: Order Comment: Speci men Type: BLOOD SPECIMENOrdering Facility: [facility] Address: [address] [place] [address] Performed By: #### 5 8410-2 ####[facility] LABIA [id number] [address] MCH (RBC) [Entitic mass] 31.0 pg Normal 26.0-34.0 [facility] Comment on above: Order Comment: Speci men Type: BLOOD SPECIMENOrdering Facility: [facility] Address: [address] [place] [address] Performed By: #### 5 8410-2 ####[facility] LABIA [id number] [address] MCHC (RBC) [Mass/Vol] 31.8 g/dL Normal 30.5-36.0 [facility] Comment on above: Order Comment: Speci men Type: BLOOD SPECIMENOrdering Facility: [facility] Address: [address] [place] [address] Performed By: #### 5 8410-2 ####[facility] LABIA [id number] [address] STATES OF [facility] MCV (RBC) [Entitic vol] 97.2 fL Normal 80.0-100.0 C [facility] Comment on above: Order Comment: Speci men Type: BLOOD SPECIMENOrdering Facility: [facility] Address: [address] [place], [place] [address] Performed By: #### 5 8410-2 ####[facility] LABIA [id number] [address] [place] Nucleated RBC (Bld) [#/Vol] 10*3/uL Normal <0.01 [facility] Comment on above: Order Comment: Speci men Type: BLOOD SPECIMENOrdering Facility: [facility] Address: [address] [place], [place] [address] Performed By: #### 5 8410-2 ####[facility] LABCLIA [id number] [place] [address] [place] Platelet mean volume (Bld) [Entitic vol] 9.7 fL Normal 9.0-12.7 [facility] Comment on above: Order Comment: Speci men Type: BLOOD SPECIMENOrdering Facility: [facility] Address: [address] [place] [address] Performed By: #### 5 8410-2 ####[facility] LABCLIA [id number] [place] [address] [place] Platelets (Bld) [#/Vol] 316 10*3/uL Normal 150-400 [facility] Comment on above: Order Comment: Speci men Type: BLOOD SPECIMENOrdering Facility: [facility] Address: [address] [place], [place] [address] Performed By: #### 5 8410-2 ####[facility] LABIA [id number] [place] [address] [place] RBC (Bld) [#/Vol] 3.23 10*6/uL Low 3.90-5.20 [facility] Comment on above: Order Comment: Speci men Type: BLOOD SPECIMENOrdering Facility: [facility] Address: [address] [place], [place] [address] Performed By: #### 5 8410-2 ####[facility] LABCLIA [id number] [place] [address] [place] WBC (Bld) [#/Vol] 9.91 10*3/uL Normal 3.70-11.00 [facility] Comment on above: Order Comment: Speci men Type: BLOOD SPECIMENOrdering Facility: [facility] Address: [address] [place] [address] Performed By: #### 5 8410-2 ####[facility] LABCLIA [id number] [place] [address] [place] CONSULTon 06-28-2022 CONSULT Normal [facility] CONSULT PROGon 06-28-2022 CONSULT PROG Normal [facility] CSF MANUAL DIFFon 06-28-2022 DIF TTL, CSF 100 cells counted Normal [facility] Comment on above: Order Comment: Speci men Type: CEREBROSPINAL FLUIDOrdering Facility: [facility] Address: [address] [address] Performed By: #### 3 4563-7, [id number] ####[facility] LABCLIA [id number] [place] [address] [place] LYMPH%, CSF 98 % High 50-90 [facility] Comment on above: Order Comment: Speci men Type: CEREBROSPINAL FLUIDOrdering Facility: [facility] Address: [address] Performed By: #### 3 4563-7, [id number] ####[facility] LABCLIA [id number] [place] [address] [place] MONO%, CSF 2 % Low 10-50 [facility] Comment on above: Order Comment: Speci men Type: CEREBROSPINAL FLUIDOrdering Facility: [facility] Address: [address] [place] [address] Performed By: #### 3 4563-7, [id number] ####[facility] LABCLIA [id number] [place] [address] [place] Cell count panel (CSF)on Clarity (CSF) Clear Normal Clear [facility] Comment on above: Order Comment: Speci men Type: CEREBROSPINAL FLUIDOrdering Facility: [facility] Address: [address] [place] [address] Performed By: #### 3 4563-7, [id number] ####[facility] LABCLIA [id number] [address] OF [facility] Clarity (Unsp spec) Not Indicated Normal Clear [facility] Comment on above: Order Comment: Speci men Type: CEREBROSPINAL FLUIDOrdering Facility: [facility] Address: [address] [place] [address] Performed By: #### 3 4563-7, [id number] ####[facility] LABCLIA [id number] [address] Color (CSF) Colorless Normal Colorless [facility] Comment on above: Order Comment: Speci men Type: CEREBROSPINAL FLUIDOrdering Facility: [facility] Address: [address] [place] [address] Performed By: #### 3 4563-7, [id number] ####[facility] LABCLIA [id number] [address] Color (Spun CSF) Not Indicated Normal Colorless [facility] Comment on above: Order Comment: Speci men Type: CEREBROSPINAL FLUIDOrdering Facility: [facility] Address: [address] [place] [address] Performed By: #### 3 4563-7, [id number] ####[facility] LABCLIA [id number] [address] CSF TUBE [employer]BER [employer] Normal [facility] Comment on above: Order Comment: Speci men Type: CEREBROSPINAL FLUIDOrdering Facility: [facility] Address: [address] [place] [address] Performed By: #### 3 4563-7, [id number] ####[facility] LABCLIA [id number] [address] STATES OF [facility] RBC Manual cnt (CSF) [#/Vol] 21 cells/uL High 0-5 [facility] Comment on above: Order Comment: Speci men Type: CEREBROSPINAL FLUIDOrdering Facility: [facility] Address: [address] [address] Performed By: #### 3 4563-7, [id number] ####[facility] LABIA [id number] [address] [place] WBC Manual cnt (CSF) [#/Vol] 3 cells/uL Normal 0-5 [facility] Comment on above: Order Comment: Speci men Type: CEREBROSPINAL FLUIDOrdering Facility: [facility] Address: [address] [place] [address] Performed By: #### 3 4563-7, [id number] ####[facility] LABIA [id number] [address] [place] Glucose CSF-mCncon 3 Glucose (CSF) [Mass/Vol] 106 mg/dL High 40-70 [facility] Comment on above: Order Comment: Speci men Type: CEREBROSPINAL FLUIDOrdering Facility: [facility] Address: [address] [place] [address] Result Comment: Lumb ar CSF glucose values of healthy patients are approximately 60% of the plasma values and must always be compared with a concurrently measured plasma value for adequate clinical interpretation.References: 1. Glucose HK (GLUC3) [package insert V 12.0 Stateless]. [employer], [place], [place]. August 2015. 2. Ritesh Addison, Misbah, H. (2015). Chapter 7: Glucose and Lactate. Marylin Sesay al.(eds.), Cerebrospinal Fluid in Clinical Neurology. [place]: [employer]. Performed By: #### 2 342-4 ####[facility] [id number] [address] [place] MNGS PATHOGEN DXon 3 MNGS PATHOGEN DX RESULTS View results in Scanned Documents link when available. Normal [facility] Comment on above: Order Comment: Speci men Type: CEREBROSPINAL FLUIDOrdering Facility: [facility] Address: [address] [place] [address] Renal function 2000 panelon 06-28-2022 Albumin [Mass/Vol] 3.3 g/dL Low 3.9-4.9 [facility] Comment on above: Order Comment: Speci men Type: BLOOD SPECIMENOrdering Facility: [facility] Address: [address] [place], [place] [address] Performed By: #### 2 4362-6 ####[facility] LABCLIA [id number] [place] [address] [place] Anion gap [Moles/Vol] 9 mmol/L Normal 9-18 [facility] Comment on above: Order Comment: Speci men Type: BLOOD SPECIMENOrdering Facility: [facility] Address: [address] [place] [address] Performed By: #### 2 4362-6 ####[facility] LABCLIA [id number] [place] [address] [place] Calcium [Mass/Vol] 9.1 mg/dL Normal 8.5-10.2 [facility] Comment on above: Order Comment: Speci men Type: BLOOD SPECIMENOrdering Facility: [facility] Address: [address] [place], [place] [address] Performed By: #### 2 4362-6 ####[facility] LABCLIA [id number] [place] [address] [place] Chloride [Moles/Vol] 115 mmol/L High 97-105 [facility] Comment on above: Order Comment: Speci men Type: BLOOD SPECIMENOrdering Facility: [facility] Address: [address] [place], [place] [address] Performed By: #### 2 4362-6 ####[facility] LABCLIA [id number] [place] [address] [place] CO2 [Moles/Vol] 20 mmol/L Low 22-30 [facility] Comment on above: Order Comment: Speci men Type: BLOOD SPECIMENOrdering Facility: [facility] Address: [address] [address] Performed By: #### 2 4362-6 ####[facility] [id number] [address] STATES OF [facility] Creatinine [Mass/Vol] 0.44 mg/dL Low 0.58-0.96 [facility] Comment on above: Order Comment: Speci men Type: BLOOD SPECIMENOrdering Facility: [facility] Address: [address] [address] Performed By: #### 2 4362-6 ####[facility] LABSPR[facility] [id number] [address] OF [facility] ESTIMATED GLOMERULAR FILTRATION RATE 114 mL/min/1.73m??? Normal >=60 [facility] Comment on above: Order Comment: Speci men Type: BLOOD SPECIMENOrdering Facility: [facility] Address: [address] [address] Result Comment: Maritza mated Glomerular Filtration Rate (eGFR) is calculated using the 2020 CKD-EPI creatinine equation. This equation utilizes serum creatinine, sex, and age as parameters. The creatinine assay has traceable calibration to isotope dilution-mass spectrometry. Refer to KDIGO guidelines for clinical interpretation. In patients with unstable renal function, e.g. those with acute kidney injury, the eGFR may not accurately reflect actual GFR. Performed By: #### 2 4362-6 ####[facility] LABIA [id number] [address] [place] Glucose [Mass/Vol] 188 mg/dL High 74-99 [facility] Comment on above: Order Comment: Speci men Type: BLOOD SPECIMENOrdering Facility: [facility] Address: [address] [place] [address] Result Comment: The [place] Diabetes Association (ADA) provides guidance for cutoff values for fasting glucose and random glucose. The ADA defines fasting as no caloric intake for at least 8 hours. Fasting plasma glucose results between 100 to 125 mg/dL indicate increased risk for diabetes (prediabetes).Fasting plasma glucose results greater than or equal to 126 mg/dL meet the criteria for diagnosis of diabetes. In the absence of unequivocal hyperglycemia, results should be confirmed by repeat testing. In a patient with classic symptoms of hyperglycemia or hyperglycemic crisis, random plasma glucose results greater than or equal to 200 mg/dL meet the criteria for diagnosis of diabetes.Reference: Standards of Medical Care in Diabetes 2016, [place] [employer]. Diabetes Care. 2016.39(Suppl 1). Performed By: #### 2 4362-6 ####[facility] LABIA [id number] [place] [address] [place] Phosphate [Mass/Vol] 2.0 mg/dL Low 2.7-4.8 [facility] Comment on above: Order Comment: Speci men Type: BLOOD SPECIMENOrdering Facility: [facility] Address: [address] [place] [address] Performed By: #### 2 4362-6 ####[facility] LABIA [id number] [place] [address] [place] Potassium [Moles/Vol] 3.3 mmol/L Low 3.7-5.1 [facility] Comment on above: Order Comment: Speci men Type: BLOOD SPECIMENOrdering Facility: [facility] Address: [address] [place] [address] Performed By: #### 2 4362-6 ####[facility] LABIA [id number] [place] [address] [place] Sodium [Moles/Vol] 144 mmol/L Normal 136-144 [facility] Comment on above: Order Comment: Speci men Type: BLOOD SPECIMENOrdering Facility: [facility] Address: [address] [place] [address] Performed By: #### 2 4362-6 ####[facility] LABIA [id number] [place] [address] [place] Urea nitrogen [Mass/Vol] 24 mg/dL High 7-21 [facility] Comment on above: Order Comment: Speci men Type: BLOOD SPECIMENOrdering Facility: [facility] Address: [address] [place] [address] Performed By: #### 2 4362-6 ####[facility] LABCLIA [id number] [place] [id number] [place] THERAPY NTon 06-28-2022 THERAPY NT Normal [facility] THERAPY NT Normal [facility] ALLIED HEALTHon 06-27-2022 ALLIED HEALTH HNO ID: [id number] Author: Priscilla Salazarlain Service: Spiritual Care Author Type: Sports Anchor Type: Allied Health Filed: 06/27/2022 11:25 AM Note Text: Accepted anoint.,bless. Normal [facility] BRUCELLA AB TOTALon 06-28-19 23 BRUCELLA ANTIBODIES <1:20 Normal <1:20 [facility] Comment on above: Order Comment: Speci men Type: BLOOD SPECIMENOrdering Facility: [facility] Address: [address] [place] [address] Result Comment: INTE RPRETIVE INFORMATION: Brucella Ab (Total) by AgglutinationCross-reactions may occur between Brucella and F. tularensisantigens and antisera; therefore, parallel tests should be runwith these antigens. A fourfold rise in titer is considereddiagnostic. A single serum titer of 1:80 or 1:160 is suggestive ofbrucellosis when accompanied by a compatible clinical course in apatient with a history of potential exposures.Performed By: [id number] [place], [place] [address]Aecyzwfyeh Director: Rich Gomez MD, PhD Performed By: #### B [place] ####[facility] LABORATORIESCLIA [id number] [place] [address] Bacteria CSF Culton 06-28-19 23 Bacteria identified Cx Nom (CSF) CULTURE, CSF: No growth 5 days GRAM STAIN: No organisms seen No Polymorphonuclear Leukocytes Gram stain performed on cytospun specimen. Normal [facility] Comment on above: Performed By: #### F UNCSF, [id number], 606-4 ####[facility] LABCLIA [id number] [place] [address] [place] CASE MANAGEMon 06-27-2022 CASE MANAGEM Normal [facility] CBC panel Auto (Bld)on 06-27 Erythrocyte distribution width (RBC) [Ratio] 14.6 % Normal 11.5-15.0 [facility] Comment on above: Order Comment: Speci men Type: BLOOD SPECIMENOrdering Facility: [facility] Address: [address] [place] [address] Performed By: #### 5 8410-2 ####[facility] LABIA [id number] [place] [address] [place] Hematocrit (Bld) [Volume fraction] 32.1 % Low 36.0-46.0 [facility] Comment on above: Order Comment: Speci men Type: BLOOD SPECIMENOrdering Facility: [facility] Address: [address] [place] [address] Performed By: #### 5 8410-2 ####[facility] LABIA [id number] [place] [address] [place] Hemoglobin (Bld) [Mass/Vol] 10.9 g/dL Low 11.5-15.5 [facility] Comment on above: Order Comment: Speci men Type: BLOOD SPECIMENOrdering Facility: [facility] Address: [address] [place] [address] Performed By: #### 5 8410-2 ####[facility] LABIA [id number] [place] [address] [place] MCH (RBC) [Entitic mass] 31.4 pg Normal 26.0-34.0 [facility] Comment on above: Order Comment: Speci men Type: BLOOD SPECIMENOrdering Facility: [facility] Address: [address] [place] [address] Performed By: #### 5 8410-2 ####[facility] LABIA [id number] [place] [address] [place] MCHC (RBC) [Mass/Vol] 34.0 g/dL Normal 30.5-36.0 [facility] Comment on above: Order Comment: Speci men Type: BLOOD SPECIMENOrdering Facility: [facility] Address: [address] [place] [address] Performed By: #### 5 8410-2 ####[facility] LABIA [id number] [place] [address] [place] MCV (RBC) [Entitic vol] 92.5 fL Normal 80.0-100.0 [facility] Comment on above: Order Comment: Speci men Type: BLOOD SPECIMENOrdering Facility: [facility] Address: [address] [place] [address] Performed By: #### 5 8410-2 ####[facility] LABIA [id number] [place] [address] [place] Nucleated RBC (Bld) [#/Vol] 10*3/uL Normal <0.01 [facility] Comment on above: Order Comment: Speci men Type: BLOOD SPECIMENOrdering Facility: [facility] Address: [address] [place], [place] [address] Performed By: #### 5 8410-2 ####[facility] LABIA [id number] [place] [address] [place] Platelet mean volume (Bld) [Entitic vol] 9.5 fL Normal 9.0-12.7 [facility] Comment on above: Order Comment: Speci men Type: BLOOD SPECIMENOrdering Facility: [facility] Address: [address] [place], [place] [address] Performed By: #### 5 8410-2 ####[facility] LABCLIA [id number] [place] [address] [place] Platelets (Bld) [#/Vol] 344 10*3/uL Normal 150-400 [facility] Comment on above: Order Comment: Speci men Type: BLOOD SPECIMENOrdering Facility: [facility] Address: [address] [place] [address] Performed By: #### 5 8410-2 ####[facility] LABCLIA [id number] [place] [address] [place] RBC (Bld) [#/Vol] 3.47 10*6/uL Low 3.90-5.20 [facility] Comment on above: Order Comment: Speci men Type: BLOOD SPECIMENOrdering Facility: [facility] Address: [address] [address] Performed By: #### 5 8410-2 ####[facility] LABCLIA [id number] [place] [address] [place] WBC (Bld) [#/Vol] 11.44 10*3/uL High 3.70-11.00 [facility] Comment on above: Order Comment: Speci men Type: BLOOD SPECIMENOrdering Facility: [facility] Address: [address] [place] [address] Performed By: #### 5 8410-2 ####[facility] LABCLIA [id number] [place] [address] [place] CONSULT PROGon 06-27-2022 CONSULT PROG Normal [facility] CONSULT PROG Normal [facility] CRYPTOCOCCUS AG DETon 2022 CRYPTOCOCCUS AG DET CRYPTOCOCCAL AG RESU LT: Cryptococcal Antigen NOT DETECTED by line flow immunoassay Normal [facility] Comment on above: Performed By: #### F [facility], [id number], 606-4 ####[facility] LABCLIA [id number] [place] [address] [place] FUNGAL CSF CULT/CADon 2022 FUNGAL CSF CULT/CAD CULTURE, FUNGAL: No Fungus isolated after 28 days Normal [facility] Comment on above: Performed By: #### F [facility], [id number], 606-4 ####[facility] LABCLIA [id number] [place] [address] [place] Glucose CSF-[facility] Glucose (CSF) [Mass/Vol] 159 mg/dL High 40-70 [facility] Comment on above: Order Comment: Speci men Type: CEREBROSPINAL FLUIDOrdering Facility: [facility] Address: [address] [address] Result Comment: Lumb ar CSF glucose values of healthy patients are approximately 60% of the plasma values and must always be compared with a concurrently measured plasma value for adequate clinical interpretation.References: 1. Glucose HK (GLUC3) [package insert V 12.0 Stateless]. [employer], [place], [place]. August 2015. 2. Ritesh Addison, Misbah HGiancarlo (2015). Chapter 7: Glucose and Lactate. FGiancarlo Sesay al.(eds.), Cerebrospinal Fluid in Clinical Neurology. [place]: [employer]. Performed By: #### 2 342-4, 2880-3 ####[facility] LABIA [id number] [place] [address] [place] NURSING PROGon 06-27-2022 NURSING PROG Normal [facility] NUTRITIONon 06-27-2022 NUTRITION Normal [facility] OPERATIVE NOon 06-27-2022 OPERATIVE NO Normal [facility] Prot CSF-ncon 06-27-2022 Protein (CSF) [Mass/Vol] 22 mg/dL Normal 15-45 [facility] Comment on above: Order Comment: Speci men Type: CEREBROSPINAL FLUIDOrdering Facility: [facility] Address: [address] [phone] Performed By: #### 2 342-4, 2880-3 ####[facility] LABCLIA [id number] [place] [address] [place] Renal function 2000 panelon 06-27-2022 Albumin [Mass/Vol] 3.5 g/dL Low 3.9-4.9 [facility] Comment on above: Order Comment: Speci men Type: BLOOD SPECIMENOrdering Facility: [facility] Address: [address] Performed By: #### 2 4362-6 ####[facility] LABCLIA [id number] [place] [address] [place] Anion gap [Moles/Vol] 15 mmol/L Normal 9-18 [facility] Comment on above: Order Comment: Speci men Type: BLOOD SPECIMENOrdering Facility: [facility] Address: [address] Performed By: #### 2 4362-6 ####[facility] LABCLIA [id number] [place] [address] [place] Calcium [Mass/Vol] 9.3 mg/dL Normal 8.5-10.2 [facility] Comment on above: Order Comment: Speci men Type: BLOOD SPECIMENOrdering Facility: [facility] Address: [address] Performed By: #### 2 4362-6 ####[facility] LABCLIA [id number] [place] [address] [place] Chloride [Moles/Vol] 111 mmol/L High 97-105 [facility] Comment on above: Order Comment: Speci men Type: BLOOD SPECIMENOrdering Facility: [facility] Address: [address] [phone] Performed By: #### 2 4362-6 ####[facility] LABCLIA [id number] [place] [address] [place] CO2 [Moles/Vol] 15 mmol/L Low 22-30 [facility] Comment on above: Order Comment: Speci men Type: BLOOD SPECIMENOrdering Facility: [facility] Address: [address] [place] [address] Performed By: #### 2 4362-6 ####[facility] LABIA [id number] [place] [address] [place] Creatinine [Mass/Vol] 0.46 mg/dL Low 0.58-0.96 [facility] Comment on above: Order Comment: [place] Type: BLOOD SPECIMENOrdering Facility: [facility] Address: [address] [address] Performed By: #### 2 4362-6 ####[facility] LABIA [id number] [address] [place] ESTIMATED GLOMERULAR FILTRATION RATE 112 mL/min/1.73m??? Normal >=60 [facility] Comment on above: Order Comment: [place] Type: BLOOD SPECIMENOrdering Facility: [facility] Address: [address] [address] Result Comment: Maritza mated Glomerular Filtration Rate (eGFR) is calculated using the 2020 CKD-EPI creatinine equation. This equation utilizes serum creatinine, sex, and age as parameters. The creatinine assay has traceable calibration to isotope dilution-mass spectrometry. Refer to KDIGO guidelines for clinical interpretation. In patients with unstable renal function, e.g. those with acute kidney injury, the eGFR may not accurately reflect actual GFR. Performed By: #### 2 4362-6 ####[facility] LABIA [id number] [place] [address] [place] Glucose [Mass/Vol] 443 mg/dL High 74-99 [facility] Comment on above: Order Comment: Speci sergio Type: BLOOD SPECIMENOrdering Facility: [facility] Address: [address] [address] Result Comment: The [place] Diabetes [employer] (ADA) provides guidance for cutoff values for fasting glucose and random glucose. The ADA defines fasting as no caloric intake for at least 8 hours. Fasting plasma glucose results between 100 to 125 mg/dL indicate increased risk for diabetes (prediabetes).Fasting plasma glucose results greater than or equal to 126 mg/dL meet the criteria for diagnosis of diabetes. In the absence of unequivocal hyperglycemia, results should be confirmed by repeat testing. In a patient with classic symptoms of hyperglycemia or hyperglycemic crisis, random plasma glucose results greater than or equal to 200 mg/dL meet the criteria for diagnosis of diabetes.Reference: Standards of Medical Care in Diabetes 2016, [place] [employer]. Diabetes Care. 2016.39(Suppl 1). Performed By: #### 2 4362-6 ####[facility] LABCLIA [id number] [place] [address] [place] Phosphate [Mass/Vol] 3.3 mg/dL Normal 2.7-4.8 [facility] Comment on above: Order Comment: Speci men Type: BLOOD SPECIMENOrdering Facility: [facility] Address: [address] [address] Performed By: #### 2 4362-6 ####[facility] LABIA [id number] [place] [address] [place] Potassium [Moles/Vol] 4.1 mmol/L Normal 3.7-5.1 [facility] Comment on above: Order Comment: Speci men Type: BLOOD SPECIMENOrdering Facility: [facility] Address: [address] [place] [address] Performed By: #### 2 4362-6 ####[facility] LABIA [id number] [place] [address] [place] Sodium [Moles/Vol] 141 mmol/L Normal 136-144 [facility] Comment on above: Order Comment: Speci men Type: BLOOD SPECIMENOrdering Facility: [facility] Address: [address] Performed By: #### 2 4362-6 ####[facility] LABIA [id number] [place] [address] [place] Urea nitrogen [Mass/Vol] 27 mg/dL High 7-21 [facility] Comment on above: Order Comment: Speci men Type: BLOOD SPECIMENOrdering Facility: [facility] Address: [address] [place] [address] Performed By: #### 2 4362-6 ####[facility] LABCLIA [id number] [address] [address] [place] THERAPY NTon 06-27-2022 THERAPY NT Normal [facility] ALLIED HEALTHon 06-26-2022 ALLIED HEALTH Normal [facility] ANES POSTPROC EVALon 023 ANES POSTPROC EVAL Normal [facility] ANES PRE-OPon 06-26-2022 ANES PRE-OP Normal [facility] BRIEF OP NOTon 06-26-2022 BRIEF OP NOT Normal [facility] Bacteria Spec Anaerobe Culto n 06-26-2022 Bacteria identified Anaer cx Nom (Unsp spec) Negative Normal [facility] Comment on above: Performed By: #### 1 1475-1, 635-3, 06640-4 ####[facility] LABCLIA [id number] [address] [address] [place] Bacteria Tiss Culton 023 Bacteria identified Cx Nom (Tiss) CULTURE, TISSUE: No growth GRAM STAIN: No organisms seen No Polymorphonuclear Leukocytes Normal [facility] Comment on above: Performed By: #### 1 1475-1, 635-3, 01571-7 ####[facility] LABCLIA [id number] [address] [address] [place] Bacteria Wnd Culton 06-27-19 23 Bacteria identified Cx Nom (Wound) CULTURE, WOUND: No growth GRAM STAIN: No organisms seen No Polymorphonuclear Leukocytes Normal [facility] Comment on above: Performed By: #### 6 462-6, 10575-5 ####[facility] LABIA [id number] [address] [id number] [place] CASE MANAGEMon 06-26-2022 CASE MANAGEM Normal [facility] CBC panel Auto (Bld)on 06-26 Erythrocyte distribution width (RBC) [Ratio] 14.6 % Normal 11.5-15.0 [facility] Comment on above: Order Comment: Speci men Type: BLOOD SPECIMENOrdering Facility: [facility] Address: [address] [place] [address] Performed By: #### 5 8410-2 ####[facility] LABCLIA [id number] [place] [address] [place] Hematocrit (Bld) [Volume fraction] 36.6 % Normal 36.0-46.0 [facility] Comment on above: Order Comment: Speci men Type: BLOOD SPECIMENOrdering Facility: [facility] Address: [address] [place] [address] Performed By: #### 5 8410-2 ####[facility] LABCLIA [id number] [place] [address] [place] Hemoglobin (Bld) [Mass/Vol] 12.3 g/dL Normal 11.5-15.5 [facility] Comment on above: Order Comment: Speci men Type: BLOOD SPECIMENOrdering Facility: [facility] Address: [address] [place], [place] [address] Performed By: #### 5 8410-2 ####[facility] LABIA [id number] [place] [address] [place] MCH (RBC) [Entitic mass] 30.8 pg Normal 26.0-34.0 [facility] Comment on above: Order Comment: Speci men Type: BLOOD SPECIMENOrdering Facility: [facility] Address: [address] [place], [place] [address] Performed By: #### 5 8410-2 ####[facility] LABIA [id number] [place] [address] [place] MCHC (RBC) [Mass/Vol] 33.6 g/dL Normal 30.5-36.0 [facility] Comment on above: Order Comment: Speci men Type: BLOOD SPECIMENOrdering Facility: [facility] Address: [address] [place] [address] Performed By: #### 5 8410-2 ####[facility] LABIA [id number] [address] MCV (RBC) [Entitic vol] 91.7 fL Normal 80.0-100.0 C [facility] Comment on above: Order Comment: Speci men Type: BLOOD SPECIMENOrdering Facility: [facility] Address: [address] Performed By: #### 5 8410-2 ####[facility] LABIA [id number] [address] [place] Nucleated RBC (Bld) [#/Vol] 10*3/uL Normal <0.01 [facility] Comment on above: Order Comment: Speci men Type: BLOOD SPECIMENOrdering Facility: [facility] Address: [address] Performed By: #### 5 8410-2 ####[facility] LABIA [id number] [address] [place] Platelet mean volume (Bld) [Entitic vol] 9.0 fL Normal 9.0-12.7 [facility] Comment on above: Order Comment: Speci men Type: BLOOD SPECIMENOrdering Facility: [facility] Address: [address] [place] [address] Performed By: #### 5 8410-2 ####[facility] LABIA [id number] [place] [address] [place] Platelets (Bld) [#/Vol] 400 10*3/uL Normal 150-400 [facility] Comment on above: Order Comment: Speci men Type: BLOOD SPECIMENOrdering Facility: [facility] Address: [address] Performed By: #### 5 8410-2 ####[facility] LABIA [id number] [place] [address] [place] RBC (Bld) [#/Vol] 3.99 10*6/uL Normal 3.90-5.20 [facility] Comment on above: Order Comment: Speci men Type: BLOOD SPECIMENOrdering Facility: [facility] Address: [address] [place] [address] Performed By: #### 5 8410-2 ####[facility] [id number] [address] [place] WBC (Bld) [#/Vol] 9.56 10*3/uL Normal 3.70-11.00 [facility] Comment on above: Order Comment: Speci men Type: BLOOD SPECIMENOrdering Facility: [facility] Address: [address] [place] [address] Performed By: #### 5 8410-2 ####[facility] [id number] [address] [place] CT BRAIN WO IVCONon 06-27-19 CT BRAIN WO IVCON Normal [facility] HCG Preg Ur Qlon 06-26-2022 HCG ( test) Ql (U) Negative Normal Negative [facility] Comment on above: Order Comment: Speci men Type: URINE SPECIMENOrdering Facility: [facility] Address: [address] [place] [address] Result Comment: This test is intended to aid in the early detection of . Very dilute urine samples, as indicated by a low specific gravity, may not contain event sales representative levels of hCG. This test detects intact hCG only. This test does not reliably detect hCG degradation products, including free-beta subunit and beta-core fragment. Therefore, this test may show reduced reactivity in urine after 8 weeks gestation. A number of conditions other than , including trophoblastic disease and certain non-trophoblastic neoplasms cause elevated levels of hCG. As with any assay employing mouse antibodies, the possibility exists for interference by human anti-mouse antibodies (HAMA) in the specimen. The test provides a presumptive diagnosis for . Performed By: #### 2 106-3 ####[facility] LABCLIA [id number] [address] [place] Microorganism Spec Culton Microorganism identified Cx Nom (Unsp spec) CULTURE, FUNGAL: No Fungus isolated after 28 days FUNGAL SMEAR: No fungus seen Normal [facility] Comment on above: Performed By: #### 6 462-6, 42300-6 ####[facility] LABCLIA [id number] [address] [place] Microorganism identified Cx Nom (Unsp spec) CULTURE, FUNGAL: No Fungus isolated after 28 days FUNGAL SMEAR: No fungus seen Normal [facility] Comment on above: Performed By: #### 1 1475-1, 635-3, 33243-1 ####[facility] LABCLIA [id number] [address] [facility] Microorganism identified Cx Nom (Unsp spec) CULTURE, AFB: No Acid Fast Bacilli isolated after 42 days AFB STAIN: No acid fast bacilli seen by flurochrome stain Normal [facility] Comment on above: Performed By: #### 1 1475-1, 635-3, 62180-6 ####[facility] LABCLIA [id number] [address] [address] [place] OPERATIVE NOon 06-26-2022 OPERATIVE NO Normal [facility] Renal function 2000 panelon 06-26-2022 Albumin [Mass/Vol] 3.7 g/dL Low 3.9-4.9 [facility] Comment on above: Order Comment: Speci men Type: BLOOD SPECIMENOrdering Facility: [facility] Address: [address] [place] [address] Performed By: #### 2 4362-6 ####[facility] LABCLIA [id number] [place] [id number] [place] Anion gap [Moles/Vol] 10 mmol/L Normal 9-18 [facility] Comment on above: Order Comment: Speci men Type: BLOOD SPECIMENOrdering Facility: [facility] Address: [address] Performed By: #### 2 4362-6 ####[facility] LABCLIA [id number] [place] [address] [place] Calcium [Mass/Vol] 9.5 mg/dL Normal 8.5-10.2 [facility] Comment on above: Order Comment: Speci men Type: BLOOD SPECIMENOrdering Facility: [facility] Address: [address] Performed By: #### 2 4362-6 ####[facility] LABCLIA [id number] [place] [address] [place] Chloride [Moles/Vol] 113 mmol/L High 97-105 [facility] Comment on above: Order Comment: Speci men Type: BLOOD SPECIMENOrdering Facility: [facility] Address: [address] Performed By: #### 2 4362-6 ####[facility] LABCLIA [id number] [place] [address] [place] CO2 [Moles/Vol] 19 mmol/L Low 22-30 [facility] Comment on above: Order Comment: Speci men Type: BLOOD SPECIMENOrdering Facility: [facility] Address: [address] Performed By: #### 2 4362-6 ####[facility] LABCLIA [id number] [place] [address] [place] Creatinine [Mass/Vol] 0.43 mg/dL Low 0.58-0.96 [facility] Comment on above: Order Comment: Speci men Type: BLOOD SPECIMENOrdering Facility: [facility] Address: [address] Performed By: #### 2 4362-6 ####[facility] LABCLIA [id number] [address] [facility] ESTIMATED GLOMERULAR FILTRATION RATE 114 mL/min/1.73m??? Normal >=60 [facility] Comment on above: Order Comment: [place] Type: BLOOD SPECIMENOrdering Facility: [facility] Address: [address] [address] Result Comment: Maritza mated Glomerular Filtration Rate (eGFR) is calculated using the 2020 CKD-EPI creatinine equation. This equation utilizes serum creatinine, sex, and age as parameters. The creatinine assay has traceable calibration to isotope dilution-mass spectrometry. Refer to KDIGO guidelines for clinical interpretation. In patients with unstable renal function, e.g. those with acute kidney injury, the eGFR may not accurately reflect actual GFR. Performed By: #### 2 4362-6 ####[facility] LABIA [id number] [place] [address] [place] [facility] Glucose [Mass/Vol] 159 mg/dL High 74-99 [facility] Comment on above: Order Comment: [place] Type: BLOOD SPECIMENOrdering Facility: [facility] Address: [address] [place] [address] Result Comment: The [place] Diabetes Association (ADA) provides guidance for cutoff values for fasting glucose and random glucose. The ADA defines fasting as no caloric intake for at least 8 hours. Fasting plasma glucose results between 100 to 125 mg/dL indicate increased risk for diabetes (prediabetes).Fasting plasma glucose results greater than or equal to 126 mg/dL meet the criteria for diagnosis of diabetes. In the absence of unequivocal hyperglycemia, results should be confirmed by repeat testing. In a patient with classic symptoms of hyperglycemia or hyperglycemic crisis, random plasma glucose results greater than or equal to 200 mg/dL meet the criteria for diagnosis of diabetes.Reference: Standards of Medical Care in Diabetes 2016, [place] [employer]. Diabetes Care. 2016.39(Suppl 1). Performed By: #### 2 4362-6 ####[facility] LABIA [id number] [place] [address] [place] Phosphate [Mass/Vol] 2.6 mg/dL Low 2.7-4.8 [facility] Comment on above: Order Comment: Speci men Type: BLOOD SPECIMENOrdering Facility: [facility] Address: [address] [place], [place] [address] Performed By: #### 2 4362-6 ####[facility] LABCLIA [id number] [place] [address] [place] Potassium [Moles/Vol] 3.8 mmol/L Normal 3.7-5.1 [facility] Comment on above: Order Comment: Speci men Type: BLOOD SPECIMENOrdering Facility: [facility] Address: [address] [place] [address] Performed By: #### 2 4362-6 ####[facility] LABCLIA [id number] [place] [address] [place] Sodium [Moles/Vol] 142 mmol/L Normal 136-144 [facility] Comment on above: Order Comment: Speci men Type: BLOOD SPECIMENOrdering Facility: [facility] Address: [address] [place], [place] [address] Performed By: #### 2 4362-6 ####[facility] LABCLIA [id number] [place] [address] [place] Urea nitrogen [Mass/Vol] 24 mg/dL High 7-21 [facility] Comment on above: Order Comment: Speci men Type: BLOOD SPECIMENOrdering Facility: [facility] Address: [address] [place], [place] [address] Performed By: #### 2 4362-6 ####[facility] LABCLIA [id number] [place] [address] [place] STAPH AUREUS PCRon 3 S. aureus and MRSA panel LOUISE+probe (Nose) Normal Negative [facility] Comment on above: Order Comment: Speci men Type: SWAB OF INTERNAL NOSEOrdering Facility: [facility] Address: [address] [place], [place] [address] Result Comment: Nega tive for Staphylococcus aureus by PCR.Negative for MRSA by PCR Performed By: #### S APCR ####[facility] LABCLIA [id number] [address] OF [facility] SURGICAL PATHOLOGYon 023 ADDENDUM 1: Normal [facility] Comment on above: Order Comment: Speci men Type: TISSUE SPECIMENOrdering Facility: [facility] Address: [address] [place], [place] [address] Result Comment: Gram , GMS, and AFB stains were performed on block B1. Rare fungal hyphae are noted on the GMS stained section. Additional organisms are not noted on the AFB or gram stain sections.FARIHA/mm/06/29/2022ddendum electronically signed by Ambar Issa MD on 06/29/2022 at 12:43 PM Performed By: #### F UNPCR ####[facility] MOLECULAR MICROCLIA [id number] [place] [address]#### S ####[facility] LABCLIA [id number] [address] [place] CASE REPORT Normal [facility] Comment on above: Order Comment: Speci men Type: TISSUE SPECIMENOrdering Facility: [facility] Address: [address] [place] [address] Result Comment: Surg ical Pathology Report Case: [id number] Provider: Alvin Madrid MD Collected: 06/26/2022 05:52 PMOrdering Location: Admitting Received: 06/27/2022 07:25 AMPathologist: AMPARO Leepecimens: A) - DURA/SUBDURA, INTRADURAL THORACIC LESION B) - DURA/SUBDURA, DURAL based Lesion Performed By: #### F UNPCR ####[facility] MOLECULAR MICROCLIA [id number] [place] [address]#### S ####[facility] LABCLIA [id number] [address] [place] CLINICAL HISTORY Normal [facility] Comment on above: Order Comment: Speci men Type: TISSUE SPECIMENOrdering Facility: [facility] Address: [address] [place] [address] Result Comment: Pre- op diagnosis:Spinal stenosis of lumbar region with neurogenic claudication [M48.062] Performed By: #### F UNPCR ####[facility] MOLEC[facility] MICROCLIA [id number] [place] [address]#### S ####[facility] LABCLIA [id number] [address] [place] DIAGNOSIS COMMENT An addendum will be issued following additional stains for microorganisms. Normal [facility] Comment on above: Order Comment: Speci men Type: TISSUE SPECIMENOrdering Facility: [facility] Address: [address] [place] [address] Performed By: #### F UNPCR ####[facility] MOLE[facility] MICROCLIA [id number] [place] [address]#### S ####[facility] LABCLIA [id number] [address] FINAL DIAGNOSIS Normal [facility] Comment on above: Order Comment: Speci men Type: TISSUE SPECIMENOrdering Facility: [facility] Address: [address] [place] [address] Result Comment: A. I ntradural thoracic region, excision:- Peripheral nerve and adjacent soft tissue with focal chronic inflammation and fibrosis.- Negative for neoplasm.B. Dura, site not further specified, excision:- Focal necrosis with chronic inflammation and fibrosis.- Negative for neoplasm.RAP/rw 06/28/2022 Performed By: #### F UNPCR ####[facility] MICROCLIA [id number] [place] [address]#### S ####[facility] LABCLIA [id number] [place] [address] [place] FINAL PERFORMING LAB Normal [facility] Comment on above: Order Comment: Speci men Type: TISSUE SPECIMENOrdering Facility: [facility] Address: [address] [place] [address] Result Comment: Diag nostic interpretation performed at [place] [address] CLIA# [id number] Director: Kiko Gunn M.D. Performed By: #### F UNPCR ####[facility]LE[facility] MICROCLIA [id number] [place] [address]#### S ####[facility] LABCLIA [id number] [address] [place] GROSS DESCRIPTION A. DURA/SUBDURA Normal [facility] Comment on above: Order Comment: Speci men Type: TISSUE SPECIMENOrdering Facility: [facility] Address: [address] [place] [address] Result Comment: Rece ived in formalin on Telfa gauze, labeled as intradural thoracic lesion is a red-pink soft tissue that measures 0.6 x 0.5 x 0.3 cm. The specimen is bisected and totally submitted in 1 cassette./ML June 27, 2022 8:43 AMGross examination performed at [facility], [address] [place], [place] [address]B. DURA/SUBDURAReceived in formalin, labeled as dural based lesion is a pale pink-white soft tissue that measures 0.7 x 0.3 x 0.3 cm. The specimen is sectioned and totally submitted in 1 cassette.CG/ML June 27, 2022 8:45 AMGross examination performed at [facility], [address] [place] [address] Performed By: #### F UNPCR ####[facility] MOLECULAR MICROCLIA [id number] [place] [address]#### S ####[facility] LABCLIA [id number] [facility] [id number] [place] [address] [place] THERAPY NTon 06-26-2022 THERAPY NT Normal [facility] [employer] PCRon 06-27-19 [employer] PCR View results in Scan christine Documents link when available. Normal [facility] Comment on above: Order Comment: Speci men Type: MICROBIAL ISOLATEOrdering Facility: [facility] Address: [address] [place] [address] Performed By: #### A FBPCR ####[facility] MOLECULAR MICROCLIA [id number] [place] [address] UNIVERSAL BACTERIAL PCRon UNIVERSAL BACTERIAL PCR View results in Scanned Documents link when available. Normal [facility] Comment on above: Order Comment: Speci men Type: TISSUE SPECIMENOrdering Facility: [facility] Address: [address] [place] [address] Performed By: #### B ACPCR ####[facility] MOLECULAR MICROCLIA [id number] [place] [address] UNIVERSAL FUNGAL PCRon 06-26 UNIVERSAL FUNGAL PCR View results in Sca nned Documents link when available. Normal [facility] Comment on above: Order Comment: Speci men Type: TISSUE SPECIMENOrdering Facility: [facility] Address: [address] [place], [place] [address] Performed By: #### F UNPCR ####[facility] MOLECULAR MICROCLIA [id number] [place] [address]#### S ####[facility] LABCLIA [id number] [facility] [address] [address] [place] UNIVERSAL FUNGAL PCR View results in Sca nned Documents link when available. Normal [facility] Comment on above: Order Comment: Speci men Type: MICROBIAL ISOLATEOrdering Facility: [facility] Address: [address] [place], [place] [address] Performed By: #### F UNPCR ####[facility] MOLECULAR MICROCLIA [id number] [place] [address] XR VERIFY LEVEL S-[id number]-[id number] 06-26-2022 XR VERIFY LEVEL L-SPINE-NB Normal [facility] CBC panel Auto (Bld)on 06-25 Erythrocyte distribution width (RBC) [Ratio] 14.8 % Normal 11.5-15.0 [facility] Comment on above: Order Comment: Speci men Type: BLOOD SPECIMENOrdering Facility: [facility] Address: [address] [place] [address] Performed By: #### 5 8410-2 ####[facility] [id number] [place] [address] [place] Hematocrit (Bld) [Volume fraction] 41.4 % Normal 36.0-46.0 [facility] Comment on above: Order Comment: Speci men Type: BLOOD SPECIMENOrdering Facility: [facility] Address: [address] [place] [address] Performed By: #### 5 8410-2 ####[facility] [id number] [place] [address] [place] Hemoglobin (Bld) [Mass/Vol] 14.3 g/dL Normal 11.5-15.5 [facility] Comment on above: Order Comment: Speci men Type: BLOOD SPECIMENOrdering Facility: [facility] Address: [address] [place], [place] [address] Performed By: #### 5 8410-2 ####[facility] LABIA [id number] [place] [address] [place] MCH (RBC) [Entitic mass] 31.8 pg Normal 26.0-34.0 [facility] Comment on above: Order Comment: Speci men Type: BLOOD SPECIMENOrdering Facility: [facility] Address: [address] [place] [address] Performed By: #### 5 8410-2 ####[facility] [id number] [address] [place] MCHC (RBC) [Mass/Vol] 34.5 g/dL Normal 30.5-36.0 [facility] Comment on above: Order Comment: Speci men Type: BLOOD SPECIMENOrdering Facility: [facility] Address: [address] [place] [address] Performed By: #### 5 8410-2 ####[facility] LABIA [id number] [address] STATES OF [facility] MCV (RBC) [Entitic vol] 92.2 fL Normal 80.0-100.0 [facility] Comment on above: Order Comment: Speci men Type: BLOOD SPECIMENOrdering Facility: [facility] Address: [address] [place] [address] Performed By: #### 5 8410-2 ####[facility] LABIA [id number] [address] [place] Nucleated RBC (Bld) [#/Vol] 10*3/uL Normal <0.01 [facility] Comment on above: Order Comment: Speci men Type: BLOOD SPECIMENOrdering Facility: [facility] Address: [address] [place], [place] [address] Performed By: #### 5 8410-2 ####[facility] LABIA [id number] [place] [address] [place] Platelet mean volume (Bld) [Entitic vol] 9.3 fL Normal 9.0-12.7 [facility] Comment on above: Order Comment: Speci men Type: BLOOD SPECIMENOrdering Facility: [facility] Address: [address] [place], [place] [address] Performed By: #### 5 8410-2 ####[facility] LABIA [id number] [place] [address] [place] Platelets (Bld) [#/Vol] 463 10*3/uL High 150-400 [facility] Comment on above: Order Comment: Speci men Type: BLOOD SPECIMENOrdering Facility: [facility] Address: [address] [place] [address] Performed By: #### 5 8410-2 ####[facility] LABCLIA [id number] [place] [address] [place] RBC (Bld) [#/Vol] 4.49 10*6/uL Normal 3.90-5.20 [facility] Comment on above: Order Comment: Speci men Type: BLOOD SPECIMENOrdering Facility: [facility] Address: [address] [place] [address] Performed By: #### 5 8410-2 ####[facility] LABIA [id number] [place] [address] [place] WBC (Bld) [#/Vol] 9.68 10*3/uL Normal 3.70-11.00 [facility] Comment on above: Order Comment: Speci men Type: BLOOD SPECIMENOrdering Facility: [facility] Address: [address] [place] [address] Performed By: #### 5 8410-2 ####[facility] LABIA [id number] [place] [address] [place] CT BRAIN WO IVCONon 06-26-19 CT BRAIN WO IVCON Normal [facility] PT panel Coag (PPP)on 2022 INR Coag (PPP) [Relative time] {INR} Low 0.9-1.3 [facility] Comment on above: Order Comment: Speci men Type: BLOOD SPECIMENOrdering Facility: [facility] Address: [address] [place], [place] [address] Result Comment: Jessica min K Antagonist (VKA) Therapeutic Range: INR 2 to 3 (Target INR of 2.5)Note: For patients treated with VKA drugs, such as warfarin, the [place] [employer] 2012 Guideline recommends a therapeutic INR range of 2 to 3 (target INR of 2.5). This recommendation includes high-risk patients with antiphospholipid syndrome with previous arterial or venous thromboembolism, current-generation mechanical or bioprosthetic aortic heart valve replacement.Note: Patients with mechanical aortic valve replacement and additional risk factors for thromboembolic events (atrial fibrillation, previous thromboembolism, LV dysfunction, hypercoagulable conditions) or an older generation mechanical AVR (i.e., ball in-Cage) or any mechanical MVR should have a INR therapeutic range of 2.5 to 3.5 (target INR of 3).Rebecca GH, et al. Chest 2012, 141:7S-47SNishimura RA, et al. [facility] 2017, 70: 252-289 Performed By: #### 1 4979-9, 57368-3 ####[facility] LABIA [id number] [place] [address] [place] PT Coag (PPP) [Time] 9.4 s Low 9.7-13.0 [facility] Comment on above: Order Comment: Patrick [place] Type: BLOOD SPECIMENOrdering Facility: [facility] Address: [address] [place] [address] Result Comment: Resu lt rechecked.Sample checked for clot. Performed By: #### 1 4979-9, 70046-1 ####[facility] [id number] [place] [address] [place] Renal function 2000 panelon 06-25-2022 Albumin [Mass/Vol] 4.4 g/dL Normal 3.9-4.9 [facility] Comment on above: Order Comment: [place] Type: BLOOD SPECIMENOrdering Facility: [facility] Address: [address] [address] Performed By: #### 2 4362-6 ####[facility] [id number] [place] [address] [place] Anion gap [Moles/Vol] 12 mmol/L Normal 9-18 [facility] Comment on above: Order Comment: [place] Type: BLOOD SPECIMENOrdering Facility: [facility] Address: [address] [place] [address] Performed By: #### 2 4362-6 ####[facility] LABCLIA [id number] [place] [address] [place] Calcium [Mass/Vol] 10.0 mg/dL Normal 8.5-10.2 [facility] Comment on above: Order Comment: Speci men Type: BLOOD SPECIMENOrdering Facility: [facility] Address: [address] Performed By: #### 2 4362-6 ####[facility] LABCLIA [id number] [place] [address] [place] Chloride [Moles/Vol] 110 mmol/L High 97-105 [facility] Comment on above: Order Comment: Speci men Type: BLOOD SPECIMENOrdering Facility: [facility] Address: [address] Performed By: #### 2 4362-6 ####[facility] LABCLIA [id number] [place] [address] [place] CO2 [Moles/Vol] 19 mmol/L Low 22-30 [facility] Comment on above: Order Comment: Speci men Type: BLOOD SPECIMENOrdering Facility: [facility] Address: [address] [place] [address] Performed By: #### 2 4362-6 ####[facility] LABCLIA [id number] [place] [address] [place] Creatinine [Mass/Vol] 0.50 mg/dL Low 0.58-0.96 [facility] Comment on above: Order Comment: Speci men Type: BLOOD SPECIMENOrdering Facility: [facility] Address: [address] [place] [address] Performed By: #### 2 4362-6 ####[facility] LABCLIA [id number] [place] [address] [place] ESTIMATED GLOMERULAR FILTRATION RATE 110 mL/min/1.73m??? Normal >=60 [facility] Comment on above: Order Comment: [place] Type: BLOOD SPECIMENOrdering Facility: [facility] Address: [address] [place] [address] Result Comment: Maritza mated Glomerular Filtration Rate (eGFR) is calculated using the 2020 CKD-EPI creatinine equation. This equation utilizes serum creatinine, sex, and age as parameters. The creatinine assay has traceable calibration to isotope dilution-mass spectrometry. Refer to KDIGO guidelines for clinical interpretation. In patients with unstable renal function, e.g. those with acute kidney injury, the eGFR may not accurately reflect actual GFR. Performed By: #### 2 4362-6 ####[facility] LABCLIA [id number] [place] [address] [place] Glucose [Mass/Vol] 121 mg/dL High 74-99 [facility] Comment on above: Order Comment: [place] Type: BLOOD SPECIMENOrdering Facility: [facility] Address: [address] [place] [address] Result Comment: The [place] Diabetes Association (ADA) provides guidance for cutoff values for fasting glucose and random glucose. The ADA defines fasting as no caloric intake for at least 8 hours. Fasting plasma glucose results between 100 to 125 mg/dL indicate increased risk for diabetes (prediabetes).Fasting plasma glucose results greater than or equal to 126 mg/dL meet the criteria for diagnosis of diabetes. In the absence of unequivocal hyperglycemia, results should be confirmed by repeat testing. In a patient with classic symptoms of hyperglycemia or hyperglycemic crisis, random plasma glucose results greater than or equal to 200 mg/dL meet the criteria for diagnosis of diabetes.Reference: Standards of Medical Care in Diabetes 2016, [place] [employer]. Diabetes Care. 2016.39(Suppl 1). Performed By: #### 2 4362-6 ####[facility] LABIA [id number] [place] [address] [place] Phosphate [Mass/Vol] 3.1 mg/dL Normal 2.7-4.8 [facility] Comment on above: Order Comment: Speci men Type: BLOOD SPECIMENOrdering Facility: [facility] Address: [address] Performed By: #### 2 4362-6 ####[facility] LABCLIA [id number] [place] [address] [place] Potassium [Moles/Vol] 3.9 mmol/L Normal 3.7-5.1 [facility] Comment on above: Order Comment: Speci men Type: BLOOD SPECIMENOrdering Facility: [facility] Address: [address] Performed By: #### 2 4362-6 ####[facility] LABCLIA [id number] [place] [address] [place] Sodium [Moles/Vol] 141 mmol/L Normal 136-144 [facility] Comment on above: Order Comment: Speci men Type: BLOOD SPECIMENOrdering Facility: [facility] Address: [address] Performed By: #### 2 4362-6 ####[facility] LABCLIA [id number] [place] [address] [place] Urea nitrogen [Mass/Vol] 34 mg/dL High 7-21 [facility] Comment on above: Order Comment: Speci men Type: BLOOD SPECIMENOrdering Facility: [facility] Address: [address] Performed By: #### 2 4362-6 ####[facility] LABCLIA [id number] [place] [address] [place] TYPE + SCREENon 06-25-2022 ABO A Normal [facility] Comment on above: Order Comment: Speci men Type: BLOOD SPECIMENOrdering Facility: [facility] Address: [address] [place] [address] Performed By: #### T SCR ####CC [facility] BLOOD BANKIA [id number] [address] HISTORICAL AB SCR STATUS Negative Normal [facility] Comment on above: Order Comment: Speci men Type: BLOOD SPECIMENOrdering Facility: [facility] Address: [address] [place] [address] Performed By: #### T SCR ####[facility] BLO[facility] BANKCLIA [id number] [address] Rh Nom (Bld) Positive Normal [facility] Comment on above: Order Comment: Speci men Type: BLOOD SPECIMENOrdering Facility: [facility] Address: [address] [place] [address] Performed By: #### T SCR ####[facility] BLOOD BANKCLIA [id number] [address] TYPE AND SCREEN EXPIRATION 06/28/2022 23:59 Normal [facility] Comment on above: Order Comment: Speci men Type: BLOOD SPECIMENOrdering Facility: [facility] Address: [address] [place] [address] Performed By: #### T SCR ####CC [facility] BLOOD BANKCLIA [id number] [address] [place] aPTT PPPon 06-25-2022 aPTT Coag (PPP) [Time] 21.0 s Low 23.0-32.4 Cl [facility] Comment on above: Order Comment: Speci men Type: BLOOD SPECIMENOrdering Facility: [facility] Address: [address] [place] [address] Result Comment: Samp le checked for clot. Performed By: #### 1 4979-9, 23215-7 ####[facility] LABCLIA [id number] [address] CBC panel Auto (Bld)on 06-24 Erythrocyte distribution width (RBC) [Ratio] 14.6 % Normal 11.5-15.0 [facility] Comment on above: Order Comment: Speci men Type: BLOOD SPECIMENOrdering Facility: [facility] Address: [address] Performed By: #### 5 8410-2 ####[facility] LABIA [id number] [place] [address] [place] Hematocrit (Bld) [Volume fraction] 37.5 % Normal 36.0-46.0 [facility] Comment on above: Order Comment: Speci men Type: BLOOD SPECIMENOrdering Facility: [facility] Address: [address] Performed By: #### 5 8410-2 ####[facility] LABIA [id number] [place] [address] [place] Hemoglobin (Bld) [Mass/Vol] 12.8 g/dL Normal 11.5-15.5 [facility] Comment on above: Order Comment: Speci men Type: BLOOD SPECIMENOrdering Facility: [facility] Address: [address] Performed By: #### 5 8410-2 ####[facility] LABIA [id number] [address] [place] MCH (RBC) [Entitic mass] 31.0 pg Normal 26.0-34.0 [facility] Comment on above: Order Comment: Speci men Type: BLOOD SPECIMENOrdering Facility: [facility] Address: [address] Performed By: #### 5 8410-2 ####[facility] LABIA [id number] [address] [place] MCHC (RBC) [Mass/Vol] 34.1 g/dL Normal 30.5-36.0 [facility] Comment on above: Order Comment: Speci men Type: BLOOD SPECIMENOrdering Facility: [facility] Address: [address] [place], [place] [address] Performed By: #### 5 8410-2 ####[facility] LABIA [id number] [address] [place] MCV (RBC) [Entitic vol] 90.8 fL Normal 80.0-100.0 C [facility] Comment on above: Order Comment: Speci men Type: BLOOD SPECIMENOrdering Facility: [facility] Address: [address] [place] [address] Performed By: #### 5 8410-2 ####[facility] LABIA [id number] [place] [address] [place] Nucleated RBC (Bld) [#/Vol] 10*3/uL Normal <0.01 [facility] Comment on above: Order Comment: Speci men Type: BLOOD SPECIMENOrdering Facility: [facility] Address: [address] [place] [address] Performed By: #### 5 8410-2 ####[facility] [id number] [place] [address] [place] Platelet mean volume (Bld) [Entitic vol] 9.2 fL Normal 9.0-12.7 [facility] Comment on above: Order Comment: Speci men Type: BLOOD SPECIMENOrdering Facility: [facility] Address: [address] [place] [address] Performed By: #### 5 8410-2 ####[facility] LABIA [id number] [place] [address] [place] Platelets (Bld) [#/Vol] 506 10*3/uL High 150-400 [facility] Comment on above: Order Comment: Speci men Type: BLOOD SPECIMENOrdering Facility: [facility] Address: [address] [place], [place] Performed By: #### 5 8410-2 ####[facility] LABIA [id number] [place] [id number] [place] RBC (Bld) [#/Vol] 4.13 10*6/uL Normal 3.90-5.20 [facility] Comment on above: Order Comment: Speci men Type: BLOOD SPECIMENOrdering Facility: [facility] Address: [address] [address] Performed By: #### 5 8410-2 ####[facility] LABCLIA [id number] [place] [address] [place] WBC (Bld) [#/Vol] 10.63 10*3/uL Normal 3.70-11.00 [facility] Comment on above: Order Comment: Speci men Type: BLOOD SPECIMENOrdering Facility: [facility] Address: [address] [address] Performed By: #### 5 8410-2 ####[facility] LABCLIA [id number] [place] [address] [place] Renal function 2000 panelon 06-24-2022 Albumin [Mass/Vol] 3.8 g/dL Low 3.9-4.9 [facility] Comment on above: Order Comment: Speci men Type: BLOOD SPECIMENOrdering Facility: [facility] Address: [address] [address] Performed By: #### 2 4362-6 ####[facility] LABCLIA [id number] [place] [address] [place] Anion gap [Moles/Vol] 12 mmol/L Normal 9-18 [facility] Comment on above: Order Comment: Speci men Type: BLOOD SPECIMENOrdering Facility: [facility] Address: [address] [place], [place] [address] Performed By: #### 2 4362-6 ####[facility] LABCLIA [id number] [place] [address] [place] Calcium [Mass/Vol] 9.6 mg/dL Normal 8.5-10.2 [facility] Comment on above: Order Comment: Speci men Type: BLOOD SPECIMENOrdering Facility: [facility] Address: [address] Performed By: #### 2 4362-6 ####[facility] LABCLIA [id number] [place] [address] [place] Chloride [Moles/Vol] 108 mmol/L High 97-105 [facility] Comment on above: Order Comment: Speci men Type: BLOOD SPECIMENOrdering Facility: [facility] Address: [address] [address] Performed By: #### 2 4362-6 ####[facility] LABCLIA [id number] [place] [address] [place] CO2 [Moles/Vol] 18 mmol/L Low 22-30 [facility] Comment on above: Order Comment: Speci men Type: BLOOD SPECIMENOrdering Facility: [facility] Address: [address] [place], [place] [address] Performed By: #### 2 4362-6 ####[facility] LABCLIA [id number] [place] [address] [place] Creatinine [Mass/Vol] 0.49 mg/dL Low 0.58-0.96 [facility] Comment on above: Order Comment: Speci men Type: BLOOD SPECIMENOrdering Facility: [facility] Address: [address] Performed By: #### 2 4362-6 ####[facility] LABCLIA [id number] [place] [address] [place] ESTIMATED GLOMERULAR FILTRATION RATE 111 mL/min/1.73m??? Normal >=60 [facility] Comment on above: Order Comment: Speci men Type: BLOOD SPECIMENOrdering Facility: [facility] Address: [address] Result Comment: Maritza mated Glomerular Filtration Rate (eGFR) is calculated using the 2020 CKD-EPI creatinine equation. This equation utilizes serum creatinine, sex, and age as parameters. The creatinine assay has traceable calibration to isotope dilution-mass spectrometry. Refer to KDIGO guidelines for clinical interpretation. In patients with unstable renal function, e.g. those with acute kidney injury, the eGFR may not accurately reflect actual GFR. Performed By: #### 2 4362-6 ####[facility] LABCLIA [id number] [place] [address] [place] Glucose [Mass/Vol] 201 mg/dL High 74-99 [facility] Comment on above: Order Comment: Patrick hill Type: BLOOD SPECIMENOrdering Facility: [facility] Address: [address] [address] Result Comment: The [place] [employer] (ADA) provides guidance for cutoff values for fasting glucose and random glucose. The ADA defines fasting as no caloric intake for at least 8 hours. Fasting plasma glucose results between 100 to 125 mg/dL indicate increased risk for diabetes (prediabetes).Fasting plasma glucose results greater than or equal to 126 mg/dL meet the criteria for diagnosis of diabetes. In the absence of unequivocal hyperglycemia, results should be confirmed by repeat testing. In a patient with classic symptoms of hyperglycemia or hyperglycemic crisis, random plasma glucose results greater than or equal to 200 mg/dL meet the criteria for diagnosis of diabetes.Reference: Standards of Medical Care in Diabetes 2016, [place] [employer]. Diabetes Care. 2016.39(Suppl 1). Performed By: #### 2 4362-6 ####[facility] LABIA [id number] [place] [address] [place] Phosphate [Mass/Vol] 3.6 mg/dL Normal 2.7-4.8 [facility] Comment on above: Order Comment: Patrick hill Type: BLOOD SPECIMENOrdering Facility: [facility] Address: [address] [phone] Performed By: #### 2 4362-6 ####[facility] LABIA [id number] [address] [address] [place] Potassium [Moles/Vol] 4.3 mmol/L Normal 3.7-5.1 [facility] Comment on above: Order Comment: Speci men Type: BLOOD SPECIMENOrdering Facility: [facility] Address: [address] [address] Performed By: #### 2 4362-6 ####[facility] LABCLIA [id number] [place] [address] [place] Sodium [Moles/Vol] 138 mmol/L Normal 136-144 [facility] Comment on above: Order Comment: Speci men Type: BLOOD SPECIMENOrdering Facility: [facility] Address: [address] [address] Performed By: #### 2 4362-6 ####[facility] LABCLIA [id number] [place] [address] [place] Urea nitrogen [Mass/Vol] 38 mg/dL High 7-21 [facility] Comment on above: Order Comment: Speci men Type: BLOOD SPECIMENOrdering Facility: [facility] Address: [address] [place] [address] Performed By: #### 2 4362-6 ####[facility] LABCLIA [id number] [place] [address] [place] CBC panel Auto (Bld)on 06-23 Erythrocyte distribution width (RBC) [Ratio] 14.5 % Normal 11.5-15.0 [facility] Comment on above: Order Comment: Speci men Type: BLOOD SPECIMENOrdering Facility: [facility] Address: [address] Performed By: #### 5 8410-2 ####[facility] LABCLIA [id number] [place] [address] [place] Hematocrit (Bld) [Volume fraction] 41.7 % Normal 36.0-46.0 [facility] Comment on above: Order Comment: Speci men Type: BLOOD SPECIMENOrdering Facility: [facility] Address: [address] [place] [address] Performed By: #### 5 8410-2 ####[facility] LABIA [id number] [place] [address] [place] Hemoglobin (Bld) [Mass/Vol] 14.0 g/dL Normal 11.5-15.5 [facility] Comment on above: Order Comment: Speci men Type: BLOOD SPECIMENOrdering Facility: [facility] Address: [address] [place] [address] Performed By: #### 5 8410-2 ####[facility] LABIA [id number] [address] [place] MCH (RBC) [Entitic mass] 30.4 pg Normal 26.0-34.0 [facility] Comment on above: Order Comment: Speci men Type: BLOOD SPECIMENOrdering Facility: [facility] Address: [address] [place] [address] Performed By: #### 5 8410-2 ####[facility] [id number] [address] [place] MCHC (RBC) [Mass/Vol] 33.6 g/dL Normal 30.5-36.0 [facility] Comment on above: Order Comment: Speci men Type: BLOOD SPECIMENOrdering Facility: [facility] Address: [address] [place], [place] [address] Performed By: #### 5 8410-2 ####[facility] LABIA [id number] [place] [address] [place] MCV (RBC) [Entitic vol] 90.7 fL Normal 80.0-100.0 C [facility] Comment on above: Order Comment: Speci men Type: BLOOD SPECIMENOrdering Facility: [facility] Address: [address] [place], [place] [address] Performed By: #### 5 8410-2 ####[facility] LABIA [id number] [place] [address] [place] Nucleated RBC (Bld) [#/Vol] 10*3/uL Normal <0.01 [facility] Comment on above: Order Comment: Speci men Type: BLOOD SPECIMENOrdering Facility: [facility] Address: [address] [place], [place] [address] Performed By: #### 5 8410-2 ####[facility] LABIA [id number] [place] [address] [place] Platelet mean volume (Bld) [Entitic vol] 9.1 fL Normal 9.0-12.7 [facility] Comment on above: Order Comment: Speci men Type: BLOOD SPECIMENOrdering Facility: [facility] Address: [address] [place], [place] [address] Performed By: #### 5 8410-2 ####[facility] LABIA [id number] [place] [address] [place] Platelets (Bld) [#/Vol] 537 10*3/uL High 150-400 [facility] Comment on above: Order Comment: Speci men Type: BLOOD SPECIMENOrdering Facility: [facility] Address: [address] [place] [phone] Performed By: #### 5 8410-2 ####[facility] LABIA [id number] [place] [address] [place] RBC (Bld) [#/Vol] 4.60 10*6/uL Normal 3.90-5.20 [facility] Comment on above: Order Comment: Speci men Type: BLOOD SPECIMENOrdering Facility: [facility] Address: [address] [place] [phone] Performed By: #### 5 8410-2 ####[facility] LABIA [id number] [place] [id number] [place] WBC (Bld) [#/Vol] 5.60 10*3/uL Normal 3.70-11.00 [facility] Comment on above: Order Comment: Speci men Type: BLOOD SPECIMENOrdering Facility: [facility] Address: [address] [place] [address] Performed By: #### 5 8410-2 ####[facility] LABIA [id number] [address] [place] NURSING PROGon 06-23-2022 NURSING PROG Normal [facility] PT panel Coag (PPP)on 2022 INR Coag (PPP) [Relative time] 0.9 {INR} Normal 0.9-1.3 [facility] Comment on above: Order Comment: Speci men Type: BLOOD SPECIMENOrdering Facility: [facility] Address: [address] [place] [address] Result Comment: Jessica min K Antagonist (VKA) Therapeutic Range: INR 2 to 3 (Target INR of 2.5)Note: For patients treated with VKA drugs, such as warfarin, the [place] [employer] 2012 Guideline recommends a therapeutic INR range of 2 to 3 (target INR of 2.5). This recommendation includes high-risk patients with antiphospholipid syndrome with previous arterial or venous thromboembolism, current-generation mechanical or bioprosthetic aortic heart valve replacement.Note: Patients with mechanical aortic valve replacement and additional risk factors for thromboembolic events (atrial fibrillation, previous thromboembolism, LV dysfunction, hypercoagulable conditions) or an older generation mechanical AVR (i.e., ball in-Cage) or any mechanical MVR should have a INR therapeutic range of 2.5 to 3.5 (target INR of 3).Rebecca GH, et al. Chest 2012, 141:7S-47SNishimura RA, et al. JACC 2017, 70: 252-289 Performed By: #### 1 4979-9, 03776-2 ####[facility] LABCLIA [id number] [address] [place] PT Coag (PPP) [Time] 9.8 s Normal 9.7-13.0 [facility] Comment on above: Order Comment: Speci men Type: BLOOD SPECIMENOrdering Facility: [facility] Address: [address] [place], [place] [address] Performed By: #### 1 4979-9, 61907-2 ####[facility] LABCLIA [id number] [place] [address] [place] Renal function 2000 panelon 06-23-2022 Albumin [Mass/Vol] 4.2 g/dL Normal 3.9-4.9 [facility] Comment on above: Order Comment: Speci men Type: BLOOD SPECIMENOrdering Facility: [facility] Address: [address] [place] [address] Performed By: #### 2 4362-6 ####[facility] LABCLIA [id number] [place] [address] [place] Anion gap [Moles/Vol] 11 mmol/L Normal 9-18 [facility] Comment on above: Order Comment: Speci men Type: BLOOD SPECIMENOrdering Facility: [facility] Address: [address] [place], [place] [address] Performed By: #### 2 4362-6 ####[facility] LABCLIA [id number] [place] [address] [place] Calcium [Mass/Vol] 10.1 mg/dL Normal 8.5-10.2 [facility] Comment on above: Order Comment: Speci men Type: BLOOD SPECIMENOrdering Facility: [facility] Address: [address] [place], [place] [address] Performed By: #### 2 4362-6 ####[facility] LABCLIA [id number] [place] [address] [place] Chloride [Moles/Vol] 103 mmol/L Normal 97-105 [facility] Comment on above: Order Comment: Speci men Type: BLOOD SPECIMENOrdering Facility: [facility] Address: [address] [address] Performed By: #### 2 4362-6 ####[facility] LABIA [id number] [place] [address] [place] CO2 [Moles/Vol] 18 mmol/L Low 22-30 [facility] Comment on above: Order Comment: Speci men Type: BLOOD SPECIMENOrdering Facility: [facility] Address: [address] [address] Performed By: #### 2 4362-6 ####[facility] LABIA [id number] [place] [address] [place] Creatinine [Mass/Vol] 0.54 mg/dL Low 0.58-0.96 [facility] Comment on above: Order Comment: Speci men Type: BLOOD SPECIMENOrdering Facility: [facility] Address: [address] [address] Performed By: #### 2 4362-6 ####[facility] LABIA [id number] [place] [address] [place] ESTIMATED GLOMERULAR FILTRATION RATE 108 mL/min/1.73m??? Normal >=60 [facility] Comment on above: Order Comment: Speci men Type: BLOOD SPECIMENOrdering Facility: [facility] Address: [address] [place] [address] Result Comment: Maritza mated Glomerular Filtration Rate (eGFR) is calculated using the 2020 CKD-EPI creatinine equation. This equation utilizes serum creatinine, sex, and age as parameters. The creatinine assay has traceable calibration to isotope dilution-mass spectrometry. Refer to KDIGO guidelines for clinical interpretation. In patients with unstable renal function, e.g. those with acute kidney injury, the eGFR may not accurately reflect actual GFR. Performed By: #### 2 4362-6 ####[facility] LABCLIA [id number] [place] [address] [place] Glucose [Mass/Vol] 403 mg/dL High 74-99 [facility] Comment on above: Order Comment: Speci men Type: BLOOD SPECIMENOrdering Facility: [facility] Address: [address] [place] [address] Result Comment: The [place] [employer] (ADA) provides guidance for cutoff values for fasting glucose and random glucose. The ADA defines fasting as no caloric intake for at least 8 hours. Fasting plasma glucose results between 100 to 125 mg/dL indicate increased risk for diabetes (prediabetes).Fasting plasma glucose results greater than or equal to 126 mg/dL meet the criteria for diagnosis of diabetes. In the absence of unequivocal hyperglycemia, results should be confirmed by repeat testing. In a patient with classic symptoms of hyperglycemia or hyperglycemic crisis, random plasma glucose results greater than or equal to 200 mg/dL meet the criteria for diagnosis of diabetes.Reference: Standards of Medical Care in Diabetes 2016, [place] [employer]. Diabetes Care. 2016.39(Suppl 1). Performed By: #### 2 4362-6 ####[facility] LABCLIA [id number] [place] [address] [place] Phosphate [Mass/Vol] 3.9 mg/dL Normal 2.7-4.8 [facility] Comment on above: Order Comment: Speci men Type: BLOOD SPECIMENOrdering Facility: [facility] Address: [address] [place], [place] [address] Performed By: #### 2 4362-6 ####[facility] LABCLIA [id number] [place] [address] [place] Potassium [Moles/Vol] 4.6 mmol/L Normal 3.7-5.1 [facility] Comment on above: Order Comment: Speci men Type: BLOOD SPECIMENOrdering Facility: [facility] Address: [address] [place], [place] [address] Performed By: #### 2 4362-6 ####[facility] LABCLIA [id number] [place] [address] [place] Sodium [Moles/Vol] 132 mmol/L Low 136-144 [facility] Comment on above: Order Comment: Speci men Type: BLOOD SPECIMENOrdering Facility: [facility] Address: [address] [place], [place] [address] Performed By: #### 2 4362-6 ####[facility] LABCLIA [id number] [place] [address] [place] Urea nitrogen [Mass/Vol] 34 mg/dL High 7-21 [facility] Comment on above: Order Comment: Speci men Type: BLOOD SPECIMENOrdering Facility: [facility] Address: [address] [place] [address] Performed By: #### 2 4362-6 ####[facility] LABCLIA [id number] [address] OF [facility] TYPE + SCREENon 06-23-2022 ABO A Normal [facility] Comment on above: Order Comment: Speci men Type: BLOOD SPECIMENOrdering Facility: [facility] Address: [address] [place], [place] [address] Performed By: #### T SCR ####CC [facility]LO[facility] BANKCLIA [id number] [address] STATES OF [facility] HISTORICAL AB SCR STATUS Negative Normal [facility] Comment on above: Order Comment: Speci men Type: BLOOD SPECIMENOrdering Facility: [facility] Address: [address] [place], [place] [address] Performed By: #### T SCR ####CC [facility] BLOOD BANKCLIA [id number] [address] [place] Rh Nom (Bld) Positive Normal [facility] Comment on above: Order Comment: Speci men Type: BLOOD SPECIMENOrdering Facility: [facility] Address: [address] [place], [place] [address] Performed By: #### T SCR ####CC [facility] BLOOD BANKIA [id number] [place] [address] [facility] TYPE AND SCREEN EXPIRATION 06/26/2022 23:59 Normal [facility] Comment on above: Order Comment: Specchristiane hill Type: BLOOD SPECIMENOrdering Facility: [facility] Address: [address] [place], [place] [phone] Performed By: #### T SCR ####CC [facility] BLOOD BANKCLIA [id number] [address] aPTT PPPon 06-23-2022 aPTT Coag (PPP) [Time] 27.3 s Normal 23.0-32.4 Cl [facility] Comment on above: Order Comment: Speci sergio Type: BLOOD SPECIMENOrdering Facility: [facility] Address: [address] [place] [address] Performed By: #### 1 4979-9, 50361-6 ####[facility] LABCLIA [id number] [address] ALLIED HEALTHon 06-22-2022 ALLIED HEALTH Normal [facility] C.BURNETII(Q-FEVER)ABS,IGG/I GM,PH I/II W/RFX TITERon 06-22-2022 C.BURNETII AB IGM PHASE 2 Negative Normal Negative [facility] Comment on above: Order Comment: Patrick hill Type: BLOOD SPECIMENOrdering Facility: [facility] Address: [address] [place] [address] Result Comment: Coxi altagracia burnetii (Q-Fever) Antibody IgM, Phase II is negative.No further testing will be performed.INTERPRETIVE INFORMATION: C. burnetii (Q-Fever) Ab, Phase II IgMAcute Q fever is best demonstrated by a four-fold rise in phase IIIgG titers when comparing two serum samples collected 3-6 weeksapart, and testing is performed in the same laboratory at the sametime. Phase I IgG titers can increase during seroconversion.However, in the case of acute infection, the phase I titer shouldremain lower than the phase II titer.IgM antibodies to phase II antigens provide ancillary informationto IgG titers. Phase II IgM titers develop in the same time periodof phase II IgG titers and can persist for over a year. A singlephase II IgM positive result on an acute sample represents anearly conversion or a false positive; testing of a convalescentserum is necessary. In the absence of an acute sample, a singleconvalescent serum sample with a phase II IgG titer greater than1:128 in a patient who has been ill longer than 1 week indicatesprobable acute Q fever.Chronic Q fever is best demonstrated by a phase I titer greaterthan the phase II IgG titer. Phase I IgM antibodies may alsodevelop concurrently with phase I IgG antibodies. However, in theabsence of a phase I IgG titer, the diagnostic value of a phase IIgM titer is limited. Phase I and phase II IgM and IgG titers mayremain elevated for months or years after acute infection orduring convalescence.Performed by [facility],[address] [place] [id number] obv.Absio, Rich Gomez MD, PHD, Lab. Director Performed By: #### C [facility] ####[facility] [id number] [place] [address] C.BURNETII AB IGM PHASE I Negative Normal Negative [facility] Comment on above: Order Comment: Speci men Type: BLOOD SPECIMENOrdering Facility: [facility] Address: [address] [place] [phone] Result Comment: Coxi altagracia burnetii (Q-Fever) Antibody IgM, Phase I is negative. Nofurther testing will be performed.INTERPRETIVE INFORMATION: C. burnetii (Q-Fever) Ab, Phase I IgMAcute Q fever is best demonstrated by a four-fold rise in phase IIIgG titers when comparing two serum samples collected 3-6 weeksapart, and testing is performed in the same laboratory at the sametime. Phase I IgG titers can increase during seroconversion.However, in the case of acute infection, the phase I titer shouldremain lower than the phase II titer.IgM antibodies to phase II antigens provide ancillary informationto IgG titers. Phase II IgM titers develop in the same time periodof phase II IgG titers and can persist for over a year. A singlephase II IgM positive result on an acute sample represents anearly conversion or a false positive; testing of a convalescentserum is necessary. In the absence of an acute sample, a singleconvalescent serum sample with a phase II IgG titer greater than1:128 in a patient who has been ill longer than 1 week indicatesprobable acute Q fever.Chronic Q fever is best demonstrated by a phase I titer greaterthan the phase II IgG titer. Phase I IgM antibodies may alsodevelop concurrently with phase I IgG antibodies. However, in theabsence of a phase I IgG titer, the diagnostic value of a phase IIgM titer is limited. Phase I and phase II IgM and IgG titers mayremain elevated for months or years after acute infection orduring convalescence. Performed By: #### C [facility] ####[facility] [id number] [place] [address] COXIELLA BURNETII IGG, PHASE 1 Negative Normal Negative [facility] Comment on above: Order Comment: Patrick [place] Type: BLOOD SPECIMENOrdering Facility: [facility] Address: [address] [place] [phone] Result Comment: INTE RPRETIVE INFORMATION: C. Burnetii Abs, IgG Phase I ScreenAcute Q fever is best demonstrated by a four-fold rise in phase IIIgG titers when comparing two serum samples collected 3-6 weeksapart, and testing is performed in the same laboratory at the sametime. Phase I IgG titers can increase during seroconversion.However, in the case of acute infection, the phase I titer shouldremain lower than the phase II titer.IgM antibodies to phase II antigens provide ancillary informationto IgG titers. Phase II IgM titers develop in the same time periodof phase II IgG titers and can persist for over a year. A singlephase II IgM positive result on an acute sample represents anearly conversion or a false positive; testing of a convalescentserum is necessary. In the absence of an acute sample, a singleconvalescent serum sample with a phase II IgG titer greater than1:128 in a patient who has been ill longer than 1 week indicatesprobable acute Q fever.Chronic Q fever is best demonstrated by a phase I titer greaterthan the phase II IgG titer. Phase I IgM antibodies may alsodevelop concurrently with phase I IgG antibodies. However, in theabsence of a phase I IgG titer, the diagnostic value of a phase IIgM titer is limited. Phase I and phase II IgM and IgG titers mayremain elevated for months or years after acute infection orduring convalescence. Coxiella burnetii (Q-Fever) Antibody IgG, Phase I is negative. Nofurther testing will be performed. Performed By: #### C OX[facility] ####[facility] [id number] [place] [address] COXIELLA BURNETII IGG, PHASE 2 Negative Normal Negative [facility] Comment on above: Order Comment: Speci men Type: BLOOD SPECIMENOrdering Facility: [facility] Address: [facility] [place] [address] Result Comment: INTE RPRETIVE INFORMATION: C. Burnetii Abs, IgG Phase II ScreenAcute Q fever is best demonstrated by a four-fold rise in phase IIIgG titers when comparing two serum samples collected 3-6 weeksapart, and testing is performed in the same laboratory at the sametime. Phase I IgG titers can increase during seroconversion.However, in the case of acute infection, the phase I titer shouldremain lower than the phase II titer.IgM antibodies to phase II antigens provide ancillary informationto IgG titers. Phase II IgM titers develop in the same time periodof phase II IgG titers and can persist for over a year. A singlephase II IgM positive result on an acute sample represents anearly conversion or a false positive; testing of a convalescentserum is necessary. In the absence of an acute sample, a singleconvalescent serum sample with a phase II IgG titer greater than1:128 in a patient who has been ill longer than 1 week indicatesprobable acute Q fever.Chronic Q fever is best demonstrated by a phase I titer greaterthan the phase II IgG titer. Phase I IgM antibodies may alsodevelop concurrently with phase I IgG antibodies. However, in theabsence of a phase I IgG titer, the diagnostic value of a phase IIgM titer is limited. Phase I and phase II IgM and IgG titers mayremain elevated for months or years after acute infection orduring convalescence. Coxiella burnetii (Q-Fever) Antibody IgG, Phase II is negative.No further testing will be performed. Performed By: #### C OXGMR ####[facility] [id number] [place] [address] CASE MANAGEMon 06-22-2022 CASE MANAGEM Normal [facility] CONSULT PROGon 06-22-2022 CONSULT PROG Normal [facility] ECG COMPLETEon 06-22-2022 ECG COMPLETE Normal [facility] HISTOPLASMA AG URINEon 06-22 H. capsulatum Ag (U) [Mass/Vol] <0.2 Normal <0.2 [facility] Comment on above: Order Comment: Speci men Type: URINE SPECIMENOrdering Facility: [facility] Address: [address] [address] Performed By: #### U HISTO ####[facility] LABIA [id number] [place] [address] [place] H. capsulatum Ag IA Ql (U) Negative Normal Negative [facility] Comment on above: Order Comment: Speci men Type: URINE SPECIMENOrdering Facility: [facility] Address: [address] [place] [address] Result Comment: Hist oplasma galactomannan antigen, urine test is used as an aid in diagnosing histoplasmosis. A negative result cannot rule out infection. Low positive results may at times be due to cross-reactivity with Blastomyces, Talaromyces marneffei, Paracoccidioides, and some Taylor species. Clinical radiological, and epidemiological correlation is required. Performed By: #### U HISTO ####[facility] LABCLIA [id number] [place] [address] [place] MRI BRAIN WO/W IVCONon 06-22 MRI BRAIN WO/W IVCON Normal [facility] MRI CERVICAL SPINE WO/W IVCO Non 06-22-2022 MRI CERVICAL SPINE WO/W IVCON Normal [facility] MRI LUMBAR SPINE WO/W IVCONo n 06-22-2022 MRI LUMBAR SPINE WO/W IVCON Normal [facility] MRI THORACIC SPINE WO/W IVCO Non 06-22-2022 MRI THORACIC SPINE WO/W IVCON Normal [facility] NURSING PROGon 06-22-2022 NURSING PROG Normal [facility] NUTRITIONon 06-22-2022 NUTRITION Normal [facility] THERAPY NTon 06-22-2022 THERAPY NT Normal [facility] ALLIED HEALTHon 06-21-2022 ALLIED HEALTH Normal [facility] CASE MANAGEMon 06-21-2022 CASE MANAGEM Normal [facility] CBC panel Auto (Bld)on 06-21 Erythrocyte distribution width (RBC) [Ratio] 14.6 % Normal 11.5-15.0 [facility] Comment on above: Order Comment: Speci men Type: BLOOD SPECIMENOrdering Facility: [facility] Address: [address] [place] [address] Performed By: #### 5 8410-2 ####[facility] LABCLIA [id number] [address] [place] Hematocrit (Bld) [Volume fraction] 36.9 % Normal 36.0-46.0 [facility] Comment on above: Order Comment: Speci men Type: BLOOD SPECIMENOrdering Facility: [facility] Address: [address] [place] [address] Performed By: #### 5 8410-2 ####[facility] LABCLIA [id number] [place] [address] [place] Hemoglobin (Bld) [Mass/Vol] 12.3 g/dL Normal 11.5-15.5 [facility] Comment on above: Order Comment: Speci men Type: BLOOD SPECIMENOrdering Facility: [facility] Address: [address] [place], [place] [address] Performed By: #### 5 8410-2 ####[facility] LABCLIA [id number] [place] [address] [place] MCH (RBC) [Entitic mass] 30.8 pg Normal 26.0-34.0 [facility] Comment on above: Order Comment: Speci men Type: BLOOD SPECIMENOrdering Facility: [facility] Address: [address] [place] [address] Performed By: #### 5 8410-2 ####[facility] LABCLIA [id number] [place] [address] [place] MCHC (RBC) [Mass/Vol] 33.3 g/dL Normal 30.5-36.0 [facility] Comment on above: Order Comment: Speci men Type: BLOOD SPECIMENOrdering Facility: [facility] Address: [address] [place] [address] Performed By: #### 5 8410-2 ####[facility] LABIA [id number] [address] [place] MCV (RBC) [Entitic vol] 92.5 fL Normal 80.0-100.0 [facility] Comment on above: Order Comment: Speci men Type: BLOOD SPECIMENOrdering Facility: [facility] Address: [address] [place] [address] Performed By: #### 5 8410-2 ####[facility] LABIA [id number] [address] [place] Nucleated RBC (Bld) [#/Vol] 10*3/uL Normal <0.01 [facility] Comment on above: Order Comment: Speci men Type: BLOOD SPECIMENOrdering Facility: [facility] Address: [address] [place], [place] [address] Performed By: #### 5 8410-2 ####[facility] LABIA [id number] [place] [address] [place] Platelet mean volume (Bld) [Entitic vol] 8.9 fL Low 9.0-12.7 [facility] Comment on above: Order Comment: Speci men Type: BLOOD SPECIMENOrdering Facility: [facility] Address: [address] [place], [place] [address] Performed By: #### 5 8410-2 ####[facility] LABIA [id number] [place] [address] [place] Platelets (Bld) [#/Vol] 374 10*3/uL Normal 150-400 [facility] Comment on above: Order Comment: Speci men Type: BLOOD SPECIMENOrdering Facility: [facility] Address: [address] [place] [address] Performed By: #### 5 8410-2 ####[facility] LABCLIA [id number] [place] [address] [place] RBC (Bld) [#/Vol] 3.99 10*6/uL Normal 3.90-5.20 [facility] Comment on above: Order Comment: Speci men Type: BLOOD SPECIMENOrdering Facility: [facility] Address: [address] [place] [address] Performed By: #### 5 8410-2 ####[facility] LABCLIA [id number] [place] [address] [place] WBC (Bld) [#/Vol] 4.45 10*3/uL Normal 3.70-11.00 [facility] Comment on above: Order Comment: Speci men Type: BLOOD SPECIMENOrdering Facility: [facility] Address: [address] [place] [address] Performed By: #### 5 8410-2 ####[facility] LABCLIA [id number] [place] [address] [place] CONSULT PROGon 06-21-2022 CONSULT PROG Normal [facility] Renal function 2000 panelon 06-21-2022 Albumin [Mass/Vol] 4.0 g/dL Normal 3.9-4.9 [facility] Comment on above: Order Comment: Speci men Type: BLOOD SPECIMENOrdering Facility: [facility] Address: [address] [place] [address] Performed By: #### 2 4362-6 ####[facility] LABCLIA [id number] [place] [address] [place] Anion gap [Moles/Vol] 11 mmol/L Normal 9-18 [facility] Comment on above: Order Comment: Speci men Type: BLOOD SPECIMENOrdering Facility: [facility] Address: [address] [address] Performed By: #### 2 4362-6 ####[facility] LABCLIA [id number] [place] [address] [place] Calcium [Mass/Vol] 9.8 mg/dL Normal 8.5-10.2 [facility] Comment on above: Order Comment: Speci men Type: BLOOD SPECIMENOrdering Facility: [facility] Address: [address] [address] Performed By: #### 2 4362-6 ####[facility] LABCLIA [id number] [place] [address] [place] Chloride [Moles/Vol] 106 mmol/L High 97-105 [facility] Comment on above: Order Comment: Speci men Type: BLOOD SPECIMENOrdering Facility: [facility] Address: [address] Performed By: #### 2 4362-6 ####[facility] LABCLIA [id number] [place] [address] [place] CO2 [Moles/Vol] 19 mmol/L Low 22-30 [facility] Comment on above: Order Comment: Speci men Type: BLOOD SPECIMENOrdering Facility: [facility] Address: [address] Performed By: #### 2 4362-6 ####[facility] LABCLIA [id number] [place] [address] [place] Creatinine [Mass/Vol] 0.48 mg/dL Low 0.58-0.96 [facility] Comment on above: Order Comment: Speci men Type: BLOOD SPECIMENOrdering Facility: [facility] Address: [address] Performed By: #### 2 4362-6 ####[facility] LABCLIA [id number] [place] [address] [place] ESTIMATED GLOMERULAR FILTRATION RATE 111 mL/min/1.73m??? Normal >=60 [facility] Comment on above: Order Comment: [place] Type: BLOOD SPECIMENOrdering Facility: [facility] Address: [address] [address] Result Comment: Maritza mated Glomerular Filtration Rate (eGFR) is calculated using the 2020 CKD-EPI creatinine equation. This equation utilizes serum creatinine, sex, and age as parameters. The creatinine assay has traceable calibration to isotope dilution-mass spectrometry. Refer to KDIGO guidelines for clinical interpretation. In patients with unstable renal function, e.g. those with acute kidney injury, the eGFR may not accurately reflect actual GFR. Performed By: #### 2 4362-6 ####[facility] LABIA [id number] [place] [address] [place] Glucose [Mass/Vol] 139 mg/dL High 74-99 [facility] Comment on above: Order Comment: [place] Type: BLOOD SPECIMENOrdering Facility: [facility] Address: [address] [place] [address] Result Comment: The [place] [employer] (ADA) provides guidance for cutoff values for fasting glucose and random glucose. The ADA defines fasting as no caloric intake for at least 8 hours. Fasting plasma glucose results between 100 to 125 mg/dL indicate increased risk for diabetes (prediabetes).Fasting plasma glucose results greater than or equal to 126 mg/dL meet the criteria for diagnosis of diabetes. In the absence of unequivocal hyperglycemia, results should be confirmed by repeat testing. In a patient with classic symptoms of hyperglycemia or hyperglycemic crisis, random plasma glucose results greater than or equal to 200 mg/dL meet the criteria for diagnosis of diabetes.Reference: Standards of Medical Care in Diabetes 2016, [place] [employer]. Diabetes Care. 2016.39(Suppl 1). Performed By: #### 2 4362-6 ####[facility] LABIA [id number] [place] [address] [place] Phosphate [Mass/Vol] 3.5 mg/dL Normal 2.7-4.8 [facility] Comment on above: Order Comment: Speci men Type: BLOOD SPECIMENOrdering Facility: [facility] Address: [address] [place] [address] Performed By: #### 2 4362-6 ####[facility] LABCLIA [id number] [place] [address] [place] Potassium [Moles/Vol] 4.2 mmol/L Normal 3.7-5.1 [facility] Comment on above: Order Comment: Speci men Type: BLOOD SPECIMENOrdering Facility: [facility] Address: [address] [place] [address] Performed By: #### 2 4362-6 ####[facility] LABCLIA [id number] [place] [address] [place] Sodium [Moles/Vol] 136 mmol/L Normal 136-144 [facility] Comment on above: Order Comment: Speci men Type: BLOOD SPECIMENOrdering Facility: [facility] Address: [address] [place] [address] Performed By: #### 2 4362-6 ####[facility] LABCLIA [id number] [place] [address] [place] Urea nitrogen [Mass/Vol] 26 mg/dL High 7-21 [facility] Comment on above: Order Comment: Speci men Type: BLOOD SPECIMENOrdering Facility: [facility] Address: [address] [place], [place] [address] Performed By: #### 2 4362-6 ####[facility] LABCLIA [id number] [place] [address] [place] THERAPY NTon 06-21-2022 THERAPY NT Normal [facility] CBC panel Auto (Bld)on 06-20 Erythrocyte distribution width (RBC) [Ratio] 14.6 % Normal 11.5-15.0 [facility] Comment on above: Order Comment: Speci men Type: BLOOD SPECIMENOrdering Facility: [facility] Address: [address] Performed By: #### 5 8410-2 ####[facility] LABIA [id number] [place] [address] [place] Hematocrit (Bld) [Volume fraction] 35.5 % Low 36.0-46.0 [facility] Comment on above: Order Comment: Speci men Type: BLOOD SPECIMENOrdering Facility: [facility] Address: [address] [address] Performed By: #### 5 8410-2 ####[facility] LABIA [id number] [place] [address] [place] Hemoglobin (Bld) [Mass/Vol] 11.8 g/dL Normal 11.5-15.5 [facility] Comment on above: Order Comment: Speci men Type: BLOOD SPECIMENOrdering Facility: [facility] Address: [address] Performed By: #### 5 8410-2 ####[facility] LABIA [id number] [place] [address] [place] MCH (RBC) [Entitic mass] 30.8 pg Normal 26.0-34.0 [facility] Comment on above: Order Comment: Speci men Type: BLOOD SPECIMENOrdering Facility: [facility] Address: [address] Performed By: #### 5 8410-2 ####[facility] LABIA [id number] [place] [address] [place] MCHC (RBC) [Mass/Vol] 33.2 g/dL Normal 30.5-36.0 [facility] Comment on above: Order Comment: Speci men Type: BLOOD SPECIMENOrdering Facility: [facility] Address: [address] Performed By: #### 5 8410-2 ####[facility] LABIA [id number] [address] [facility] MCV (RBC) [Entitic vol] 92.7 fL Normal 80.0-100.0 C [facility] Comment on above: Order Comment: Speci men Type: BLOOD SPECIMENOrdering Facility: [facility] Address: [address] [place], [place] [address] Performed By: #### 5 8410-2 ####[facility] LABIA [id number] [address] [place] Nucleated RBC (Bld) [#/Vol] 10*3/uL Normal <0.01 [facility] Comment on above: Order Comment: Speci men Type: BLOOD SPECIMENOrdering Facility: [facility] Address: [address] [place], [place] [address] Performed By: #### 5 8410-2 ####[facility] [id number] [place] [address] [place] Platelet mean volume (Bld) [Entitic vol] 9.3 fL Normal 9.0-12.7 [facility] Comment on above: Order Comment: Speci men Type: BLOOD SPECIMENOrdering Facility: [facility] Address: [address] [place] [address] Performed By: #### 5 8410-2 ####[facility] LABIA [id number] [place] [address] [place] Platelets (Bld) [#/Vol] 514 10*3/uL High 150-400 [facility] Comment on above: Order Comment: Speci men Type: BLOOD SPECIMENOrdering Facility: [facility] Address: [address] Performed By: #### 5 8410-2 ####[facility] LABIA [id number] [place] [address] [place] RBC (Bld) [#/Vol] 3.83 10*6/uL Low 3.90-5.20 [facility] Comment on above: Order Comment: Speci men Type: BLOOD SPECIMENOrdering Facility: [facility] Address: [address] [place] [address] Performed By: #### 5 8410-2 ####[facility] LABCLIA [id number] [place] [address] [place] WBC (Bld) [#/Vol] 5.55 10*3/uL Normal 3.70-11.00 [facility] Comment on above: Order Comment: Speci men Type: BLOOD SPECIMENOrdering Facility: [facility] Address: [address] [place] [address] Performed By: #### 5 8410-2 ####[facility] LABCLIA [id number] [place] [address] [place] CONSULTon 06-20-2022 CONSULT Normal [facility] Renal function 2000 panelon 06-20-2022 Albumin [Mass/Vol] 3.9 g/dL Normal 3.9-4.9 [facility] Comment on above: Order Comment: Speci men Type: BLOOD SPECIMENOrdering Facility: [facility] Address: [address] [place], [place] [address] Performed By: #### 2 4362-6 ####[facility] LABCLIA [id number] [place] [address] [place] Anion gap [Moles/Vol] 11 mmol/L Normal 9-18 [facility] Comment on above: Order Comment: Speci men Type: BLOOD SPECIMENOrdering Facility: [facility] Address: [address] [place], [place] [address] Performed By: #### 2 4362-6 ####[facility] LABCLIA [id number] [place] [address] [place] Calcium [Mass/Vol] 9.4 mg/dL Normal 8.5-10.2 [facility] Comment on above: Order Comment: Speci men Type: BLOOD SPECIMENOrdering Facility: [facility] Address: [address] [place], [place] [address] Performed By: #### 2 4362-6 ####[facility] LABCLIA [id number] [place] [address] [place] Chloride [Moles/Vol] 103 mmol/L Normal 97-105 [facility] Comment on above: Order Comment: Speci men Type: BLOOD SPECIMENOrdering Facility: [facility] Address: [address] [place], [place] [address] Performed By: #### 2 4362-6 ####[facility] LABCLIA [id number] [place] [address] [place] CO2 [Moles/Vol] 19 mmol/L Low 22-30 [facility] Comment on above: Order Comment: Speci men Type: BLOOD SPECIMENOrdering Facility: [facility] Address: [address] [place], [place] [address] Performed By: #### 2 4362-6 ####[facility] LABCLIA [id number] [place] [address] [place] Creatinine [Mass/Vol] 0.48 mg/dL Low 0.58-0.96 [facility] Comment on above: Order Comment: Speci men Type: BLOOD SPECIMENOrdering Facility: [facility] Address: [address] [place], [place] [address] Performed By: #### 2 4362-6 ####[facility] LABCLIA [id number] [place] [address] [place] ESTIMATED GLOMERULAR FILTRATION RATE 111 mL/min/1.73m??? Normal >=60 [facility] Comment on above: Order Comment: Speci men Type: BLOOD SPECIMENOrdering Facility: [facility] Address: [address] [address] Result Comment: Maritza mated Glomerular Filtration Rate (eGFR) is calculated using the 2020 CKD-EPI creatinine equation. This equation utilizes serum creatinine, sex, and age as parameters. The creatinine assay has traceable calibration to isotope dilution-mass spectrometry. Refer to KDIGO guidelines for clinical interpretation. In patients with unstable renal function, e.g. those with acute kidney injury, the eGFR may not accurately reflect actual GFR. Performed By: #### 2 4362-6 ####[facility] LABCLIA [id number] [place] [address] [place] Glucose [Mass/Vol] 240 mg/dL High 74-99 [facility] Comment on above: Order Comment: [place] Type: BLOOD SPECIMENOrdering Facility: [facility] Address: [address] [place] [address] Result Comment: The [place] [employer] (ADA) provides guidance for cutoff values for fasting glucose and random glucose. The ADA defines fasting as no caloric intake for at least 8 hours. Fasting plasma glucose results between 100 to 125 mg/dL indicate increased risk for diabetes (prediabetes).Fasting plasma glucose results greater than or equal to 126 mg/dL meet the criteria for diagnosis of diabetes. In the absence of unequivocal hyperglycemia, results should be confirmed by repeat testing. In a patient with classic symptoms of hyperglycemia or hyperglycemic crisis, random plasma glucose results greater than or equal to 200 mg/dL meet the criteria for diagnosis of diabetes.Reference: Standards of Medical Care in Diabetes 2016, [place] [employer]. Diabetes Care. 2016.39(Suppl 1). Performed By: #### 2 4362-6 ####[facility] LABCLIA [id number] [place] [address] [place] Phosphate [Mass/Vol] 2.9 mg/dL Normal 2.7-4.8 [facility] Comment on above: Order Comment: [place] Type: BLOOD SPECIMENOrdering Facility: [facility] Address: [address] [address] Performed By: #### 2 4362-6 ####[facility] LABCLIA [id number] [place] [address] [place] Potassium [Moles/Vol] 4.2 mmol/L Normal 3.7-5.1 [facility] Comment on above: Order Comment: Speci men Type: BLOOD SPECIMENOrdering Facility: [facility] Address: [address] [place] [address] Performed By: #### 2 4362-6 ####[facility] LABCLIA [id number] [place] [address] [place] Sodium [Moles/Vol] 133 mmol/L Low 136-144 [facility] Comment on above: Order Comment: Speci men Type: BLOOD SPECIMENOrdering Facility: [facility] Address: [address] [place] [address] Performed By: #### 2 4362-6 ####[facility] LABCLIA [id number] [place] [address] [place] Urea nitrogen [Mass/Vol] 22 mg/dL High 7-21 [facility] Comment on above: Order Comment: Speci men Type: BLOOD SPECIMENOrdering Facility: [facility] Address: [address] [place] [address] Performed By: #### 2 4362-6 ####[facility] LABCLIA [id number] [place] [address] [place] THERAPY NTon 06-20-2022 THERAPY NT Normal [facility] THERAPY NT Normal [facility] Glucose Poct Glucometerson 0 06-10-2022 Commemt1 Glu2: Cleaned Meter Normal [facility] Comment on above: Result Comment: PERF ORMED BY:[facility] [place], [place] [phone] MEDICAL DIRECTORELI FINK M.D. Performed By: #### G LULS ####Point of Care testing, Glucose [Mass/Vol] 108 mg/dL Normal [facility] Comment on above: Result Comment: [place] [facility] Glucose Reference Range is dependent on time and content of last meal. Glucose of more than 200 mg/dL in a nonstressed, ambulatory subject supports the diagnosis of Diabetes Mellitus. Performed By: #### G LULS ####Point of Care testing, Glucose [Mass/Vol] 73 mg/dL Normal [facility] Comment on above: Result Comment: [place] [facility] Glucose Reference Range is dependent on time and content of last meal. Glucose of more than 200 mg/dL in a nonstressed, ambulatory subject supports the diagnosis of Diabetes Mellitus.PERFORMED BY:[address] [place], [place] [phone] MEDICAL DIRECTORELI FINK M.D. Performed By: #### G LULS ####Point of Care testing, Glucose Poct Glucometerson 0 06-09-2022 Glucose [Mass/Vol] 98 mg/dL Normal [facility] Comment on above: Result Comment: [place] [facility] Glucose Reference Range is dependent on time and content of last meal. Glucose of more than 200 mg/dL in a nonstressed, ambulatory subject supports the diagnosis of Diabetes Mellitus.PERFORMED BY:[address] [address] [address] [place], [place] [phone] MEDICAL ALTAGRACIA FINK M.D. Performed By: #### G LULS ####Point of Care testing, [address]mem[address] Comment on above: Result Comment: Glu2 : WILL NOTIFY DR/PAULAERFORMED BY:[address] [place], [place] [phone] MEDICAL DIRECTORELI FINK M.D. Performed By: #### G LULS ####Point of Care testing, Glucose [Mass/Vol] 41 mg/dL Off scale low [facility] Comment on above: Result Comment: [place] Glucose Reference Range is dependent on time and content of last meal. Glucose of more than 200 mg/dL in a nonstressed, ambulatory subject supports the diagnosis of Diabetes Mellitus. Performed By: #### G LULS ####Point of Care testing, Commemt1 [facility] Comment on above: Result Comment: Glu2 : WILL NOTIFY /ARIFORMED BY:[address] [place] [place], [place] [phone] MEDICAL DIRECTORELI FINK M.D. Performed By: #### G LULS ####Point of Care testing, Glucose [Mass/Vol] 46 mg/dL Off scale low [facility] Comment on above: Result Comment: [place] Glucose Reference Range is dependent on time and content of last meal. Glucose of more than 200 mg/dL in a nonstressed, ambulatory subject supports the diagnosis of Diabetes Mellitus. Performed By: #### G LULS ####Point of Care testing, Commemt1 Glu2: Cleaned Meter [facility] Comment on above: Result Comment: PERF ORMED BY:[address] [place], [place] [phone] MEDICAL DIRECTORELI FINK M.D. Performed By: #### G LULS ####Point of Care testing, Glucose [Mass/Vol] 154 mg/dL Normal [facility] Comment on above: Result Comment: [place] om Glucose Reference Range is dependent on time and content of last meal. Glucose of more than 200 mg/dL in a nonstressed, ambulatory subject supports the diagnosis of Diabetes Mellitus. Performed By: #### G LULS ####Point of Care testing, Commemt1 Glu2: Cleaned Meter [facility] Comment on above: Result Comment: PERF ORMED BY:[address] [place], [place] [phone] MEDICAL DIRECTORELI FINK M.D. Performed By: #### G LULS ####Point of Care testing, Glucose [Mass/Vol] 185 mg/dL Normal [facility] Comment on above: Result Comment: [place] om Glucose Reference Range is dependent on time and content of last meal. Glucose of more than 200 mg/dL in a nonstressed, ambulatory subject supports the diagnosis of Diabetes Mellitus. Performed By: #### G LULS ####Point of Care testing, Glucose [Mass/Vol] 89 mg/dL Normal [facility] Comment on above: Result Comment: [facility] Glucose Reference Range is dependent on time and content of last meal. Glucose of more than 200 mg/dL in a nonstressed, ambulatory subject supports the diagnosis of Diabetes Mellitus.PERFORMED BY:[address] [place], [place] [phone] MEDICAL DIRECTORELI FINK M.D. Performed By: #### G LULS ####Point of Care testing, Glucose [Mass/Vol] 65 mg/dL Normal [facility] Comment on above: Result Comment: [facility] Glucose Reference Range is dependent on time and content of last meal. Glucose of more than 200 mg/dL in a nonstressed, ambulatory subject supports the diagnosis of Diabetes Mellitus.PERFORMED BY:[address] [address] [place], [place] [phone] MEDICAL DIRECTORELI FINK M.D. Performed By: #### G LULS ####Point of Care testing, Commemt1 [facility] Comment on above: Result Comment: Glu2 : WILL NOTIFY DR/RNPERFORMED BY:[address] [address] [place], [place] [phone] MEDICAL ALTAGRACIA FINK M.D. Performed By: #### G LULS ####Point of Care testing, Glucose [Mass/Vol] 58 mg/dL Off scale low [facility] Comment on above: Result Comment: [facility] Glucose Reference Range is dependent on time and content of last meal. Glucose of more than 200 mg/dL in a nonstressed, ambulatory subject supports the diagnosis of Diabetes Mellitus. Performed By: #### G LULS ####Point of Care testing, Commemt1 [facility] Comment on above: Result Comment: Glu2 : WILL NOTIFY DR/RNPERFORMED BY:[address] [place], [place] [phone] MEDICAL ALTAGRACIA FINK M.D. Performed By: #### G LULS ####Point of Care testing, Glucose [Mass/Vol] 57 mg/dL Off scale low [facility] Comment on above: Result Comment: [facility] Glucose Reference Range is dependent on time and content of last meal. Glucose of more than 200 mg/dL in a nonstressed, ambulatory subject supports the diagnosis of Diabetes Mellitus. Performed By: #### G LULS ####Point of Care testing, Basic Metabolic Panelon 05-18 Anion gap [Moles/Vol] 12.9 mmol/L Normal 6.0-15.0 [facility] Comment on above: Performed By: #### B MP, DIFF CBC ####[facility] [place] [address] [facility] Calcium [Mass/Vol] 9.2 mg/dL Normal 8.2-10.2 [facility] Comment on above: Performed By: #### B MP, DIFF CBC ####[address] [address] [facility] Chloride [Moles/Vol] 93 mmol/L Low 95-114 [facility] Comment on above: Performed By: #### B MP, DIFF CBC ####[address] [address] [facility] CO2 [Moles/Vol] 27.4 mmol/L Normal 22.0-30.0 [facility] Comment on above: Performed By: #### B MP, DIFF CBC ####[address] [place] [address] [place] Creatinine [Mass/Vol] 0.60 mg/dL Normal 0.44-1.03 [facility] Comment on above: Performed By: #### B MP, DIFF CBC ####[facility] [id number] [place] [address] [place] Creatinine Clr Calc Pharmacy 76.85 Normal [facility] Comment on above: Result Comment: PERF ORMED BY:[address] [place], [place] [phone] MEDICAL DIRECTORELI FINK M.D. Performed By: #### B MP, DIFF CBC ####[facility] [id number] [place] [address] [facility] Estimated GFR ( Martha > 60 [facility] Comment on above: Result Comment: GFR estimated reference range: According to KDOQI guidelines, <60 ml/min/1.73m2 is sufficient to diagnose a patient with chronic kidney disease. Performed By: #### B MP, DIFF CBC ####[facility] [place] [address] [facility] Estimated GFR (Non- Am > 60 [facility] Comment on above: Performed By: #### B MP, DIFF CBC ####[address] [place] [address] [facility] Glucose [Mass/Vol] 146 mg/dL High 70-100 [facility] Comment on above: Result Comment: [place] Glucose Reference Range is dependent on time and content of last meal. Glucose of more than 200 mg/dL in a nonstressed, ambulatory subject supports the diagnosis of Diabetes Mellitus. ADA recommended reference range Performed By: #### B MP, DIFF CBC ####[address] [place] [address] [facility] Potassium [Moles/Vol] 3.3 mmol/L Low 3.5-5.1 [facility] Comment on above: Performed By: #### B MP, DIFF CBC ####[address] [place] [address] [facility] Sodium [Moles/Vol] 130 mmol/L Low 136-146 [facility] Comment on above: Performed By: #### B MP, DIFF CBC ####[facility] [place] [address] [facility] Urea nitrogen [Mass/Vol] 16 mg/dL Normal 9-23 [facility] Comment on above: Performed By: #### B MP, DIFF CBC ####[address] [place] [address] [facility] CNPNon 06-08-2022 MARISN Telephone (MEPRAD) CHIKIS TOBAR ([id number]) 1965 F Date Time Provider Department 06/08/22 MIK ZAPATA During your visit today, we recorded the following information about you: Mik Zapata MD 06/08/2022 11:25 AM Signed Hospital Medicine Transfer Received page for transfer request from [facility] to [facility]: Chikis Tobar is 57 year old female who presented with DKA and found down. She was initially intubated and treated with insulin drip in the ICU and eventually transferred to the regular floor. While she was being worked up at [facility] she was seen to have thoracic and lumbar lesion suspicious for malignancy. 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 She was seen by oncology and neurology at [facility] recommended transfer to tertiary care facility for further evaluation management. She has history of bladder cancer and has urostomy. Case was discussed with our neurosurgeon Dr. Godwin who agreed to see the patient at [place] but wanted patient to be admitted under medicine because of significant comorbidities. No steroids were recommended by neurosurgery team. Patient apparently has generalized weakness but no significant lower extremity weakness or bladder incontinence. Vital signs electrolytes renal function within normal limits per verbal report. Currently blood sugars are controlled with long-acting insulin with resolution of DKA and currently patient is out of the ICU on the regular floor. Reason for transfer:NSG and oncology eval for spinal lesions Accepted to hospital medicine service at 11:20AM on 06/08/22 Mik Zapata MD 11:21 AM Allergies As of Date: 06/08/2022 Noted Allergy Reaction DEMERAL (MEPERIDINE) 02/09/2021 8 - GI Upset Comments: Nausea, pt states room spins FLEXERIL (CYCLOBENZAPRINE) 02/09/2021 4 - Hives VERSED (MIDAZOLAM) 02/18/2021 1 - Mental Status Change Date Reviewed: 05/02/2022 Reviewed by: Halie Saba MA - Fully Assessed Reason for Visit: Hospital To Hospital [[id number]] Prescriptions as of 06/08/2022 - insulin aspart U-100 (NOVOLOG) 100 unit/mL Inject 8 Units subcutaneously every 4 hours. Inject every 4 hours. Hold for BG <100 or if tube feeds are held ADMINISTER CORRECTIONAL INSULIN REGARDLESS OF MEAL OR NUTRITION INTAKE Custom Scale If Blood Glucose (mg/dL) is Less than 70 Initiate Hypoglycemia protocol 70-157 0 units 158-195 1 units 196-233 2 units 234-271 3 units 272-309 4 units 310-347 5 units 348-386 6 units Greater than 387 7 units and Notify Provider Notify provider if 2 consecutive blood glucose values in the previous 24 hours are greater than 250 mg/mL and there have been no changes to the insulin regimen in the previous 24 hours. - insulin glargine (LANTUS) 100 unit/mL injection Inject 25 Units subcutaneously every morning. - insulin lispro (HUMALOG U-100 INSULIN) 100 unit/mL injection (Discontinued) Inject 8 Units subcutaneously every 4 hours. Inject every 4 hours. Hold for BG <100 or if tube feeds are held - nutritional supplements 0.07 gram-1.5 kcal/mL liqd 50 mL/hr by FEEDING TUBE route every 24 hours. Water flush of 100 ml of water every 6 hours with tube feeds. Flush corpak ever 6 hours with 20ml of water - L.acid-L.casei-B.bif-B. mary beth-FOS (PROBIOTIC BLEND) 2 billion cell-50 mg cap Take 1 capsule by mouth once daily. - ondansetron (ZOFRAN) 4 mg tablet Take 1 tablet by mouth every 8 hours as needed for nausea/vomiting. - sulfamethoxazole-trimet hoprim (BACTRIM DS,SEPTRA DS) 800-160 mg per tablet Take 1 tablet by mouth once daily. - lactobacillus rhamnosus (CULTURELLE) 10 billion cell capsule (Discontinued) Take 1 capsule by mouth once daily. - acetaminophen (TYLENOL) 325 mg tablet Take 2 tablets by mouth every 6 hours as needed for pain. - omeprazole (PRILOSEC) 40 mg capsule Take 1 capsule by mouth once daily. - scopolamine (TRANSDERM-SCOP) patch 1.5 mg/72 hr (1 mg over 3 days) Apply 1 Patch as directed every 72 hours. - aspirin 325 mg tablet Take 1 tablet by mouth q 24 HR. You may stop that Aspirin 81mg and resume the Aspirin 325mg 10 days after surgery if your urine is clear. - metoprolol succinate ER (TOPROL XL) 100 mg Take 100 mg by mouth q 12 HR. - glucagon (BAQSIMI) 3 mg/actuation nasal spray Use in the nose as needed. - ALESSIO 180 MG TAB Take by mouth. PRN - ALBUTEROL 90 MCG/ACTUATION AEROSOL INHALER Use as directed four(4) times daily. - IPRATROPIUM BROMIDE 0.06 % NASAL SPRAY AEROSOL Use in the nose. Problem List As Of Date 06/08/2022 Noted Resolved Neoplasm of bladder [D49.4] 02/16/2021 Asthma [J45.909] 02/16/2021 HTN (hypertension) [I10] 02/16/2021 Palpitations [R00.2] 02/16/2021 Obesity [E66.9] 02/16/2021 Diabe (more content not included)... Normal [facility] COVID-19 Antigenon 3 COVID-19 Antigen Normal [facility] Comment on above: Performed By: #### C OVID-19 EULOGIO, SOFIANEG ####[address] [address] [facility] Diff and CBCon 06-08-2022 Anisocytosis Ql (Bld) Slight Normal [facility] Comment on above: Performed By: #### B MP, DIFF CBC ####[address] [place] [address] [place] Basophils/100 WBC (Bld) 1 % Normal 0-2 [facility] Comment on above: Performed By: #### B MP, DIFF CBC ####[address] [place] [address] [place] Eosinophils/100 WBC (Bld) 1 % Normal 1-3 [facility] Comment on above: Performed By: #### B MP, DIFF CBC ####[address] [address] [facility] Erythrocyte distribution width (RBC) [Ratio] 16.1 % High 11.9-15.3 [facility] Comment on above: Performed By: #### B MP, DIFF CBC ####[address] [address] [facility] Giant Platelet Tally 3 /100{WBC} Normal [facility] Comment on above: Performed By: #### B MP, DIFF CBC ####[address] [place] [address] [facility] Hematocrit (Bld) [Volume fraction] 34.6 % Normal 34.0-46.4 [facility] Comment on above: Performed By: #### B MP, DIFF CBC ####[address] [address] [facility] Hemoglobin (Bld) [Mass/Vol] 11.6 g/dL Low 11.8-15.4 [facility] Comment on above: Performed By: #### B MP, DIFF CBC ####[address] [address] [facility] Lymphocytes/100 WBC (Bld) 20 % Normal 18-42 [facility] Comment on above: Performed By: #### B MP, DIFF CBC ####[address] [address] [facility] MCH (RBC) [Entitic mass] 30.8 pg Normal 24.7-34.3 [facility] Comment on above: Performed By: #### B MP, DIFF CBC ####[address] [address] [facility] MCV (RBC) [Entitic vol] 92.1 fL Normal 80-100 F [facility] Comment on above: Performed By: #### B MP, DIFF CBC ####[address] [address] [facility] Mean Corpuscular HGB Conc 33.4 g/dL Normal 32.0-35.0 [facility] Comment on above: Performed By: #### B MP, DIFF CBC ####[address] [address] [facility] Monocytes/100 WBC (Bld) 3 % Normal 2-11 F [facility] Comment on above: Performed By: #### B MP, DIFF CBC ####[address] [place] [address] [facility] Myelocytes 1 % High 0-0 [facility] Comment on above: Performed By: #### B MP, DIFF CBC ####[address] [place] [address] [facility] Platelet Estimate Increased Normal Normal [facility] Comment on above: Performed By: #### B MP, DIFF CBC ####[address] [address] [facility] Platelet mean volume (Bld) [Entitic vol] 6.5 fL Normal 6.3-10.7 [facility] Comment on above: Performed By: #### B MP, DIFF CBC ####[address] [address] [facility] Platelet Morphology Normal Normal Normal [facility] Comment on above: Result Comment: PERF ORMED BY:[address] [place], [place] [phone] MEDICAL ALTAGRACIA FINK M.D. Performed By: #### B MP, DIFF CBC ####[address] [address] [facility] Platelets (Bld) [#/Vol] 933 10*3/uL High 150-450 [facility] Comment on above: Performed By: #### B MP, DIFF CBC ####[address] [address] [facility] RBC (Bld) [#/Vol] 3.76 10*6/uL Normal 3.60-5.00 [facility] Comment on above: Performed By: #### B MP, DIFF CBC ####[address] [address] [facility] Segmented neutrophils/100 WBC (Bld) 74 % High 50-70 [facility] Comment on above: Performed By: #### B MP, DIFF CBC ####[address] [address] [facility] WBC (Bld) [#/Vol] 6.3 10*3/uL Normal 3.8-11.6 [facility] Comment on above: Performed By: #### B MP, DIFF CBC ####[facility] [place] [address] [place] Glucose Poct Glucometerson 0 06-08-2022 Glucose [Mass/Vol] 110 mg/dL Normal [facility] Comment on above: Result Comment: [place] om Glucose Reference Range is dependent on time and content of last meal. Glucose of more than 200 mg/dL in a nonstressed, ambulatory subject supports the diagnosis of Diabetes Mellitus.PERFORMED BY:[address] [place], [place] [phone] MEDICAL DIRECTORELI FINK M.D. Performed By: #### G LULS ####Point of Care testing, Glucose [Mass/Vol] 138 mg/dL Normal [facility] Comment on above: Result Comment: [place] Glucose Reference Range is dependent on time and content of last meal. Glucose of more than 200 mg/dL in a nonstressed, ambulatory subject supports the diagnosis of Diabetes Mellitus.PERFORMED BY:[address] [place], [place] [phone] MEDICAL DIRECTORELI FINK M.D. Performed By: #### G LULS ####Point of Care testing, Glucose [Mass/Vol] 135 mg/dL Normal [facility] Comment on above: Result Comment: [place] Glucose Reference Range is dependent on time and content of last meal. Glucose of more than 200 mg/dL in a nonstressed, ambulatory subject supports the diagnosis of Diabetes Mellitus.PERFORMED BY:[address] [place], [place] [phone] MEDICAL DIRECTORELI FINK M.D. Performed By: #### G LULS ####Point of Care testing, Glucose [Mass/Vol] 177 mg/dL Normal [facility] Comment on above: Result Comment: [place] Glucose Reference Range is dependent on time and content of last meal. Glucose of more than 200 mg/dL in a nonstressed, ambulatory subject supports the diagnosis of Diabetes Mellitus.PERFORMED BY:[address] [place], [place] [phone] MEDICAL DIRECTORELI FINK M.D. Performed By: #### G LULS ####Point of Care testing, Glucose [Mass/Vol] 212 mg/dL Normal [facility] Comment on above: Result Comment: [place] om Glucose Reference Range is dependent on time and content of last meal. Glucose of more than 200 mg/dL in a nonstressed, ambulatory subject supports the diagnosis of Diabetes Mellitus.PERFORMED BY:[address] [place], [place] [phone] MEDICAL DIRECTORELI FINK M.D. Performed By: #### G LULS ####Point of Care testing, MR cervical spine w conon MR cervical spine w con Normal F [facility] Eulogio Ag Negativeon 06-08-19 Eulogio Ag Negative Negative Normal Negative [facility] Comment on above: Result Comment: This is a duplicate Eulogio SARS Antigen (NAPOLEON) result to be used for statistical tracking purpose only.PERFORMED BY:[address] [place], [place] [phone] MEDICAL DIRECTORELI FINK M.D. Performed By: #### C OVID-19 EULOGIO, SOFIANEG ####[address] [address] [facility] ECG 12 lead ECGon 06-07-2022 ECG 12 lead ECG Normal [facility] Glucose Poct Glucometerson 0 06-07-2022 Glucose [Mass/Vol] 305 mg/dL Normal [facility] Comment on above: Result Comment: [place] om Glucose Reference Range is dependent on time and content of last meal. Glucose of more than 200 mg/dL in a nonstressed, ambulatory subject supports the diagnosis of Diabetes Mellitus.PERFORMED BY:[address] [place], [place] [phone] MEDICAL DIRECTORELI FINK M.D. Performed By: #### G LULS ####Point of Care testing, Commemt1 Glu2: Cleaned Meter [facility] Comment on above: Result Comment: PERF ORMED BY:[address] [place], [place] [phone] MEDICAL DIRECTORELI FINK M.D. Performed By: #### G LULS ####Point of Care testing, Glucose [Mass/Vol] 128 mg/dL Normal [facility] Comment on above: Result Comment: [place] om Glucose Reference Range is dependent on time and content of last meal. Glucose of more than 200 mg/dL in a nonstressed, ambulatory subject supports the diagnosis of Diabetes Mellitus. Performed By: #### G LULS ####Point of Care testing, Glucose [Mass/Vol] 83 mg/dL Normal [facility] Comment on above: Result Comment: [place] om Glucose Reference Range is dependent on time and content of last meal. Glucose of more than 200 mg/dL in a nonstressed, ambulatory subject supports the diagnosis of Diabetes Mellitus.PERFORMED BY:[address] [place] [place], [place] [phone] MEDICAL DIRECTORELI FINK M.D. Performed By: #### G LULS ####Point of Care testing, Commemt1 Glu2: Cleaned Meter [facility] Comment on above: Result Comment: PERF ORMED BY:[address] [place], [place] [phone] MEDICAL ALTAGRACIA FINK M.D. Performed By: #### G LULS ####Point of Care testing, Glucose [Mass/Vol] 85 mg/dL Normal [facility] Comment on above: Result Comment: [place] om Glucose Reference Range is dependent on time and content of last meal. Glucose of more than 200 mg/dL in a nonstressed, ambulatory subject supports the diagnosis of Diabetes Mellitus. Performed By: #### G LULS ####Point of Care testing, Commemt1 Glu2: Cleaned Meter [facility] Comment on above: Result Comment: PERF ORMED BY:[address] [place], [place] [phone] MEDICAL DIRECTORELI FINK M.D. Performed By: #### G LULS ####Point of Care testing, Glucose [Mass/Vol] 93 mg/dL Normal [facility] Comment on above: Result Comment: [place] om Glucose Reference Range is dependent on time and content of last meal. Glucose of more than 200 mg/dL in a nonstressed, ambulatory subject supports the diagnosis of Diabetes Mellitus. Performed By: #### G LULS ####Point of Care testing, Glucose [Mass/Vol] 82 mg/dL Normal [facility] Comment on above: Result Comment: [place] om Glucose Reference Range is dependent on time and content of last meal. Glucose of more than 200 mg/dL in a nonstressed, ambulatory subject supports the diagnosis of Diabetes Mellitus.PERFORMED BY:[address] [place], [place] [phone] MEDICAL DIRECTORELI FINK M.D. Performed By: #### G LULS ####Point of Care testing, MR lumbar spine wo/w conon 0 06-07-2022 MR lumbar spine wo/w con Normal [facility] MR thoracic spine wo/w conon 06-07-2022 MR thoracic spine wo/w con Normal [facility] Complete Blood Count Auto Di ffon 06-06-2022 Basophils (Bld) [#/Vol] 0.0 10*3/uL Normal 0.0-0.2 [facility] Comment on above: Result Comment: PERF ORMED BY:[address] [place], [place] [phone] MEDICAL DIRECTORELI FINK M.D. Performed By: #### C BC ####[address] [address] [place] Basophils/100 WBC (Bld) 0.5 % Normal . F [facility] Comment on above: Performed By: #### C BC ####[address] [address] [facility] Eosinophils (Bld) [#/Vol] 0.0 10*3/uL Normal 0.0-0.45 [facility] Comment on above: Performed By: #### C BC ####[address] Eosinophils/100 WBC (Bld) 0.6 % Normal . [facility] Comment on above: Performed By: #### C BC ####[address] Erythrocyte distribution width (RBC) [Ratio] 16.2 % High 11.9-15.3 [facility] Comment on above: Performed By: #### C BC ####[address] Hematocrit (Bld) [Volume fraction] 34.6 % Normal 34.0-46.4 [facility] Comment on above: Performed By: #### C BC ####[address] Hemoglobin (Bld) [Mass/Vol] 11.5 g/dL Low 11.8-15.4 [facility] Comment on above: Performed By: #### C BC ####[address] Lymphocytes (Bld) [#/Vol] 1.2 10*3/uL Normal 1.00-4.8 [facility] Comment on above: Performed By: #### C BC ####[address] Lymphocytes/100 WBC (Bld) 16.0 % Normal . [facility] Comment on above: Performed By: #### C BC ####[address] MCH (RBC) [Entitic mass] 30.4 pg Normal 24.7-34.3 [facility] Comment on above: Performed By: #### C BC ####[place] [id number] [facility] MCV (RBC) [Entitic vol] 91.6 fL Normal 80-100 F [facility] Comment on above: Performed By: #### C BC ####[address] [place] [address] [facility] Mean Corpuscular HGB Conc 33.2 g/dL Normal 32.0-35.0 [facility] Comment on above: Performed By: #### C BC ####[address] [place] [address] [facility] Monocytes (Bld) [#/Vol] 0.6 10*3/uL Normal 0.0-0.8 [facility] Comment on above: Performed By: #### C BC ####[address] [address] [facility] Monocytes/100 WBC (Bld) 8.9 % Normal . [facility] Comment on above: Performed By: #### C BC ####[address] [address] [facility] Neutrophils (Bld) [#/Vol] 5.4 10*3/uL Normal 1.8-7.7 [facility] Comment on above: Performed By: #### C BC ####[address] [address] [facility] Neutrophils/100 WBC (Bld) 74.0 % Normal . [facility] Comment on above: Performed By: #### C BC ####[address] [address] [facility] NRBC% 0.1 /100{WBC} Normal 0-0.5 [facility] Comment on above: Performed By: #### C BC ####[address] [address] [facility] Platelet mean volume (Bld) [Entitic vol] 6.8 fL Normal 6.3-10.7 [facility] Comment on above: Performed By: #### C BC ####[address] [address] [facility] Platelets (Bld) [#/Vol] 770 10*3/uL High 150-450 [facility] Comment on above: Performed By: #### C BC ####[facility] [id number] [place] [address] [facility] RBC (Bld) [#/Vol] 3.78 10*6/uL Normal 3.60-5.00 [facility] Comment on above: Performed By: #### C BC ####[facility] [place] [address] [facility] WBC (Bld) [#/Vol] 7.2 10*3/uL Normal 3.8-11.6 [facility] Comment on above: Performed By: #### C BC ####[address] [address] [facility] Glucose Poct Glucometerson 0 06-06-2022 Glucose [Mass/Vol] 114 mg/dL Normal [facility] Comment on above: Result Comment: [facility] Glucose Reference Range is dependent on time and content of last meal. Glucose of more than 200 mg/dL in a nonstressed, ambulatory subject supports the diagnosis of Diabetes Mellitus.PERFORMED BY:[address] SANDOVALGiancarloMISTY, [place] [phone] MEDICAL DIRECTORELI FINK M.D. Performed By: #### G LULS ####Point of Care testing, Glucose [Mass/Vol] 170 mg/dL Normal [facility] Comment on above: Result Comment: [facility] Glucose Reference Range is dependent on time and content of last meal. Glucose of more than 200 mg/dL in a nonstressed, ambulatory subject supports the diagnosis of Diabetes Mellitus.PERFORMED BY:[address] [place]UMONTWHITEFISH, [place] [phone] MEDICAL ALTAGRACIA FINK M.D. Performed By: #### G LULS ####Point of Care testing, Glucose [Mass/Vol] 190 mg/dL Normal [facility] Comment on above: Result Comment: [facility] Glucose Reference Range is dependent on time and content of last meal. Glucose of more than 200 mg/dL in a nonstressed, ambulatory subject supports the diagnosis of Diabetes Mellitus.PERFORMED BY:[place] [address] [address] [place], [place] [phone] MEDICAL DIRECTORELI FINK M.D. Performed By: #### G LULS ####Point of Care testing, Glucose [Mass/Vol] 93 mg/dL Normal [facility] Comment on above: Result Comment: [facility] Glucose Reference Range is dependent on time and content of last meal. Glucose of more than 200 mg/dL in a nonstressed, ambulatory subject supports the diagnosis of Diabetes Mellitus.PERFORMED BY:[address] [address] [address] [place]BAJ[place]MI[place], [place] [phone] MEDICAL DIRECTORELI FINK M.D. Performed By: #### G LULS ####Point of Care testing, Glucose [Mass/Vol] 65 mg/dL Normal [facility] Comment on above: Result Comment: [facility] Glucose Reference Range is dependent on time and content of last meal. Glucose of more than 200 mg/dL in a nonstressed, ambulatory subject supports the diagnosis of Diabetes Mellitus.PERFORMED BY:[address] [address] [place]BA[place], [place] [phone] MEDICAL ALTAGRACIA FINK M.D. Performed By: #### G LULS ####Point of Care testing, Commemt1 [facility] Comment on above: Result Comment: Glu2 : WILL NOTIFY /PAULAERFORMED BY:[place] [address] [address] [place], [place] [phone] MEDICAL ALTAGRACIA FINK M.D. Performed By: #### G LULS ####Point of Care testing, Glucose [Mass/Vol] 51 mg/dL Off scale low [facility] Comment on above: Result Comment: [place] Glucose Reference Range is dependent on time and content of last meal. Glucose of more than 200 mg/dL in a nonstressed, ambulatory subject supports the diagnosis of Diabetes Mellitus. Performed By: #### G LULS ####Point of Care testing, Basic Metabolic Panelon 05-18 Anion gap [Moles/Vol] 10.9 mmol/L Normal 6.0-15.0 [facility] Comment on above: Performed By: #### C BC, BMP ####[address] [place] [address] [facility] Calcium [Mass/Vol] 9.4 mg/dL Normal 8.2-10.2 [facility] Comment on above: Performed By: #### C BC, BMP ####[address] [place] [address] [facility] Chloride [Moles/Vol] 103 mmol/L Normal 95-114 [facility] Comment on above: Performed By: #### C BC, BMP ####[address] [place] [address] [facility] CO2 [Moles/Vol] 25.6 mmol/L Normal 22.0-30.0 [facility] Comment on above: Performed By: #### C BC, BMP ####[address] [address] [facility] Creatinine [Mass/Vol] 0.57 mg/dL Normal 0.44-1.03 [facility] Comment on above: Performed By: #### C BC, BMP ####[address] [address] [facility] Creatinine Clr Calc Pharmacy 86.81 [facility] Comment on above: Result Comment: PERF ORMED BY:[address] DANIELCarmineGiancarloMISTY, [place] [phone] MEDICAL ALTAGRACIA FINK M.D. Performed By: #### C BC, BMP ####[address] [address] [facility] Estimated GFR ( Martha > 60 [facility] Comment on above: Result Comment: GFR estimated reference range: According to KDOQI guidelines, <60 ml/min/1.73m2 is sufficient to diagnose a patient with chronic kidney disease. Performed By: #### C BC, BMP ####[address] [place] [address] [facility] Estimated GFR (Non- Am > 60 [facility] Comment on above: Performed By: #### C BC, BMP ####[address] [place] [address] [facility] Glucose [Mass/Vol] 193 mg/dL High 70-100 [facility] Comment on above: Result Comment: [facility] Glucose Reference Range is dependent on time and content of last meal. Glucose of more than 200 mg/dL in a nonstressed, ambulatory subject supports the diagnosis of Diabetes Mellitus. ADA recommended reference range Performed By: #### C BC, BMP ####[place] [id number] [facility] Potassium [Moles/Vol] 4.5 mmol/L Normal 3.5-5.1 [facility] Comment on above: Performed By: #### C ROCIO, BMP ####[place] [id number] [facility] Sodium [Moles/Vol] 135 mmol/L Low 136-146 [facility] Comment on above: Performed By: #### C ROCIO, BMP ####[place] [id number] [facility] Urea nitrogen [Mass/Vol] 15 mg/dL Normal 9-23 [facility] Comment on above: Performed By: #### C ROCIO, BMP ####[place] [id number] [facility] Complete Blood Count Auto Di ffon 06-05-2022 Basophils (Bld) [#/Vol] 0.0 10*3/uL Normal 0.0-0.2 [facility] Comment on above: Result Comment: PERF ORMED BY:[address] [place], [place] [phone] MEDICAL ALTAGRACIA FINK M.D. Performed By: #### C ROCIO, BMP ####[place] [id number] [facility] Basophils/100 WBC (Bld) 0.2 % Normal . [facility] Comment on above: Performed By: #### C ROCIO, BMP ####[place] [id number] [facility] Eosinophils (Bld) [#/Vol] 0.0 10*3/uL Normal 0.0-0.45 [facility] Comment on above: Performed By: #### C ROCIO, BMP ####[address] Eosinophils/100 WBC (Bld) 0.6 % Normal . [facility] Comment on above: Performed By: #### C ROCIO, BMP ####[address] Erythrocyte distribution width (RBC) [Ratio] 16.2 % High 11.9-15.3 [facility] Comment on above: Performed By: #### C ROCIO, BMP ####[address] Hematocrit (Bld) [Volume fraction] 37.1 % Normal 34.0-46.4 [facility] Comment on above: Performed By: #### C ROCIO, BMP ####[address] Hemoglobin (Bld) [Mass/Vol] 12.3 g/dL Normal 11.8-15.4 [facility] Comment on above: Performed By: #### C ROCIO, BMP ####[address] Lymphocytes (Bld) [#/Vol] 1.2 10*3/uL Normal 1.00-4.8 [facility] Comment on above: Performed By: #### C BC, BMP ####[address] Lymphocytes/100 WBC (Bld) 17.2 % Normal . [facility] Comment on above: Performed By: #### C ROCIO, BMP ####[address] MCH (RBC) [Entitic mass] 30.5 pg Normal 24.7-34.3 [facility] Comment on above: Performed By: #### C BC, BMP ####[address] MCV (RBC) [Entitic vol] 92.3 fL Normal 80-100 F [facility] Comment on above: Performed By: #### C ROCIO, BMP ####[address] Mean Corpuscular HGB Conc 33.1 g/dL Normal 32.0-35.0 [facility] Comment on above: Performed By: #### C ROCIO, BMP ####[address] Monocytes (Bld) [#/Vol] 0.6 10*3/uL Normal 0.0-0.8 [facility] Comment on above: Performed By: #### C RCOIO, BMP ####[address] Monocytes/100 WBC (Bld) 9.3 % Normal . [facility] Comment on above: Performed By: #### C ROCIO, BMP ####[address] Neutrophils (Bld) [#/Vol] 4.9 10*3/uL Normal 1.8-7.7 [facility] Comment on above: Performed By: #### C ROCIO, BMP ####[address] Neutrophils/100 WBC (Bld) 72.7 % Normal . [facility] Comment on above: Performed By: #### C ROCIO, BMP ####[address] NRBC% 0.3 /100{WBC} Normal 0-0.5 [facility] Comment on above: Performed By: #### C ROCIO, BMP ####[address] Platelet mean volume (Bld) [Entitic vol] 7.0 fL Normal 6.3-10.7 [facility] Comment on above: Performed By: #### C ROCIO, BMP ####[address] Platelets (Bld) [#/Vol] 676 10*3/uL High 150-450 [facility] Comment on above: Performed By: #### C ROCIO, EVELIN ####[address] [place] [address] [facility] RBC (Bld) [#/Vol] 4.02 10*6/uL Normal 3.60-5.00 [facility] Comment on above: Performed By: #### C ROCIO, BMP ####[address] [place] [address] [facility] WBC (Bld) [#/Vol] 6.7 10*3/uL Normal 3.8-11.6 [facility] Comment on above: Performed By: #### C ROCIO, EVELIN ####[address] [place] [address] [facility] Glucose Poct Glucometerson 0 06-05-2022 Glucose [Mass/Vol] 123 mg/dL Normal [facility] Comment on above: Result Comment: [facility] Glucose Reference Range is dependent on time and content of last meal. Glucose of more than 200 mg/dL in a nonstressed, ambulatory subject supports the diagnosis of Diabetes Mellitus.PERFORMED BY:[address] SANDOVALGiancarloMISTY, [place] [phone] MEDICAL ALTAGRACIA FINK M.D. Performed By: #### G LULS ####Point of Care testing, Glucose [Mass/Vol] 131 mg/dL Normal [facility] Comment on above: Result Comment: [facility] Glucose Reference Range is dependent on time and content of last meal. Glucose of more than 200 mg/dL in a nonstressed, ambulatory subject supports the diagnosis of Diabetes Mellitus.PERFORMED BY:[address] [place], [place] [phone] MEDICAL ALTAGRACIA FINK M.D. Performed By: #### G LULS ####Point of Care testing, Glucose [Mass/Vol] 118 mg/dL Normal [facility] Comment on above: Result Comment: [facility] Glucose Reference Range is dependent on time and content of last meal. Glucose of more than 200 mg/dL in a nonstressed, ambulatory subject supports the diagnosis of Diabetes Mellitus.PERFORMED BY:[place] [address] [address] CARBAJALMIST[place]MECHAN[place], [place] [phone] MEDICAL DIRECTORELI FINK M.D. Performed By: #### G LULS ####Point of Care testing, Glucose [Mass/Vol] 203 mg/dL Normal [facility] Comment on above: Result Comment: [facility] Glucose Reference Range is dependent on time and content of last meal. Glucose of more than 200 mg/dL in a nonstressed, ambulatory subject supports the diagnosis of Diabetes Mellitus.PERFORMED BY:[place] [address] [address] DANIELCarmineGiancarloMISTY, [place] [phone] MEDICAL DIRECTORELI FINK M.D. Performed By: #### G LULS ####Point of Care testing, Glucose [Mass/Vol] 137 mg/dL Normal [facility] Comment on above: Result Comment: [facility] Glucose Reference Range is dependent on time and content of last meal. Glucose of more than 200 mg/dL in a nonstressed, ambulatory subject supports the diagnosis of Diabetes Mellitus.PERFORMED BY:[address] [address] [place], [place] [phone] MEDICAL ALTAGRACIA FINK M.D. Performed By: #### G LULS ####Point of Care testing, Glucose Poct Glucometerson 0 06-04-2022 Commemt1 Glu2: Cleaned Meter Normal [facility] Comment on above: Result Comment: PERF ORMED BY:[place] [address] VERDEROSA DUMONTUSKYMECHANICSV[place], [place] [phone] MEDICAL DIRECTORELI FINK M.D. Performed By: #### G LULS ####Point of Care testing, Glucose [Mass/Vol] 106 mg/dL Normal [facility] Comment on above: Result Comment: [place] Glucose Reference Range is dependent on time and content of last meal. Glucose of more than 200 mg/dL in a nonstressed, ambulatory subject supports the diagnosis of Diabetes Mellitus. Performed By: #### G LULS ####Point of Care testing, Commemt1 Glu2: Cleaned Meter [facility] Comment on above: Result Comment: PERF ORMED BY:[place] [address] [address] CARBAJALMISTYMECHANIC[place], [place] [phone] MEDICAL DIRECTORELI FINK M.D. Performed By: #### G LULS ####Point of Care testing, Glucose [Mass/Vol] 141 mg/dL Normal [facility] Comment on above: Result Comment: [place] om Glucose Reference Range is dependent on time and content of last meal. Glucose of more than 200 mg/dL in a nonstressed, ambulatory subject supports the diagnosis of Diabetes Mellitus. Performed By: #### G LULS ####Point of Care testing, Commemt1 Glu2: Cleaned Meter [facility] Comment on above: Result Comment: PERF ORMED BY:[address] CARBAJALMISTY, [place] [phone] MEDICAL DIRECTORELI FINK M.D. Performed By: #### G LULS ####Point of Care testing, Glucose [Mass/Vol] 166 mg/dL Normal [facility] Comment on above: Result Comment: [place] om Glucose Reference Range is dependent on time and content of last meal. Glucose of more than 200 mg/dL in a nonstressed, ambulatory subject supports the diagnosis of Diabetes Mellitus. Performed By: #### G LULS ####Point of Care testing, Glucose [Mass/Vol] 84 mg/dL Normal [facility] Comment on above: Result Comment: [place] om Glucose Reference Range is dependent on time and content of last meal. Glucose of more than 200 mg/dL in a nonstressed, ambulatory subject supports the diagnosis of Diabetes Mellitus.PERFORMED BY:[place] [address] [address] AVCarmineGiancarloMISTYMECHANICSVILLE, [place] [phone] MEDICAL ALTAGRACIA FINK M.D. Performed By: #### G LULS ####Point of Care testing, Basic Metabolic Panelon 05-17 Anion gap [Moles/Vol] 10.8 mmol/L Normal 6.0-15.0 [facility] Comment on above: Performed By: #### B MP, CBC ####[place] [place] [place] [id number] [facility] Calcium [Mass/Vol] 8.8 mg/dL Normal 8.2-10.2 [facility] Comment on above: Performed By: #### B MP, CBC ####[place] [id number] [facility] Chloride [Moles/Vol] 107 mmol/L Normal 95-114 [facility] Comment on above: Performed By: #### B MP, CBC ####[place] [id number] [facility] CO2 [Moles/Vol] 23.5 mmol/L Normal 22.0-30.0 [facility] Comment on above: Performed By: #### B MP, CBC ####[place] [id number] [facility] Creatinine [Mass/Vol] 0.40 mg/dL Low 0.44-1.03 [facility] Comment on above: Performed By: #### B MP, CBC ####[place] [id number] [facility] Creatinine Clr Calc Pharmacy 128.17 [facility] Comment on above: Result Comment: PERF ORMED BY:[address] [place], [place] [phone] MEDICAL ALTAGRACIA FINK M.D. Performed By: #### B MP, CBC ####[place] [id number] [facility] Estimated GFR ( Martha > 60 [facility] Comment on above: Result Comment: GFR estimated reference range: According to KDOQI guidelines, <60 ml/min/1.73m2 is sufficient to diagnose a patient with chronic kidney disease. Performed By: #### B MP, CBC ####[place] [id number] [facility] Estimated GFR (Non- Am > 60 [facility] Comment on above: Performed By: #### B MP, CBC ####[facility] [place] [address] [facility] Glucose [Mass/Vol] 51 mg/dL Significant change down 70-100 [facility] Comment on above: Result Comment: [place] Glucose Reference Range is dependent on time and content of last meal. Glucose of more than 200 mg/dL in a nonstressed, ambulatory subject supports the diagnosis of Diabetes Mellitus. ADA recommended reference range Performed By: #### B MP, CBC ####[facility] [place] [address] [facility] Potassium [Moles/Vol] 3.3 mmol/L Low 3.5-5.1 [facility] Comment on above: Performed By: #### B MP, CBC ####[address] [address] [facility] Sodium [Moles/Vol] 138 mmol/L Normal 136-146 [facility] Comment on above: Performed By: #### B MP, CBC ####[address] [place] [address] [facility] Urea nitrogen [Mass/Vol] 21 mg/dL Normal 9-23 [facility] Comment on above: Performed By: #### B MP, CBC ####[address] [address] [facility] Complete Blood Count Auto Di ffon 06-03-2022 Basophils (Bld) [#/Vol] 0.0 10*3/uL Normal 0.0-0.2 [facility] Comment on above: Result Comment: PERF ORMED BY:[address] [place], [place] [phone] MEDICAL ALTAGRACIA FINK M.D. Performed By: #### B MP, CBC ####[address] [place] [address] [facility] Basophils/100 WBC (Bld) 0.3 % Normal . [facility] Comment on above: Performed By: #### B MP, CBC ####[facility] Eosinophils (Bld) [#/Vol] 0.2 10*3/uL Normal 0.0-0.45 [facility] Comment on above: Performed By: #### B MP, CBC ####[address] Eosinophils/100 WBC (Bld) 2.6 % Normal . [facility] Comment on above: Performed By: #### B MP, CBC ####[address] Erythrocyte distribution width (RBC) [Ratio] 16.0 % High 11.9-15.3 [facility] Comment on above: Performed By: #### B MP, CBC ####[address] Hematocrit (Bld) [Volume fraction] 30.3 % Low 34.0-46.4 [facility] Comment on above: Performed By: #### B MP, CBC ####[address] Hemoglobin (Bld) [Mass/Vol] 10.3 g/dL Low 11.8-15.4 [facility] Comment on above: Performed By: #### B MP, CBC ####[address] Lymphocytes (Bld) [#/Vol] 1.5 10*3/uL Normal 1.00-4.8 [facility] Comment on above: Performed By: #### B MP, CBC ####[address] Lymphocytes/100 WBC (Bld) 26.1 % Normal . [facility] Comment on above: Performed By: #### B MP, CBC ####[address] MCH (RBC) [Entitic mass] 31.4 pg Normal 24.7-34.3 [facility] Comment on above: Performed By: #### B MP, CBC ####[address] MCV (RBC) [Entitic vol] 92.0 fL Normal 80-100 [facility] Comment on above: Performed By: #### B MP, CBC ####[address] Mean Corpuscular HGB Conc 34.1 g/dL Normal 32.0-35.0 [facility] Comment on above: Performed By: #### B MP, CBC ####[address] Monocytes (Bld) [#/Vol] 0.9 10*3/uL High 0.0-0.8 [facility] Comment on above: Performed By: #### B MP, CBC ####[address] Monocytes/100 WBC (Bld) 14.8 % Normal . [facility] Comment on above: Performed By: #### B MP, CBC ####[address] Neutrophils (Bld) [#/Vol] 3.3 10*3/uL Normal 1.8-7.7 [facility] Comment on above: Performed By: #### B MP, CBC ####[address] Neutrophils/100 WBC (Bld) 56.2 % Normal . [facility] Comment on above: Performed By: #### B MP, CBC ####[address] NRBC% 0.1 /100{WBC} Normal 0-0.5 [facility] Comment on above: Performed By: #### B MP, CBC ####[place] [id number] [facility] Platelet mean volume (Bld) [Entitic vol] 6.9 fL Normal 6.3-10.7 [facility] Comment on above: Performed By: #### B MP, CBC ####[address] [place] [address] [facility] Platelets (Bld) [#/Vol] 470 10*3/uL High 150-450 [facility] Comment on above: Performed By: #### B MP, CBC ####[address] [place] [address] [facility] RBC (Bld) [#/Vol] 3.29 10*6/uL Low 3.60-5.00 [facility] Comment on above: Performed By: #### B MP, CBC ####[address] [address] [facility] WBC (Bld) [#/Vol] 5.9 10*3/uL Normal 3.8-11.6 [facility] Comment on above: Performed By: #### B MP, CBC ####[address] [address] [facility] Glucose Poct Glucometerson 0 06-03-2022 Commemt1 Glu2: Cleaned Meter Normal [facility] Comment on above: Result Comment: PERF ORMED BY:[address] [place], [place] [phone] MEDICAL DIRECTORELI FINK M.D. Performed By: #### G PILY ####Point of Care testing, Glucose [Mass/Vol] 198 mg/dL Normal [facility] Comment on above: Result Comment: [facility] Glucose Reference Range is dependent on time and content of last meal. Glucose of more than 200 mg/dL in a nonstressed, ambulatory subject supports the diagnosis of Diabetes Mellitus. Performed By: #### G LULS ####Point of Care testing, Glucose [Mass/Vol] 74 mg/dL Normal [facility] Comment on above: Result Comment: [place] Glucose Reference Range is dependent on time and content of last meal. Glucose of more than 200 mg/dL in a nonstressed, ambulatory subject supports the diagnosis of Diabetes Mellitus.PERFORMED BY:[address] [place], [place] [phone] MEDICAL DIRECTORELI FINK M.D. Performed By: #### G LULS ####Point of Care testing, Commemt1 Glu2: Cleaned Meter [facility] Comment on above: Result Comment: PERF ORMED BY:[address] [address] [address] [place], [place] [phone] MEDICAL DIRECTORELI FINK M.D. Performed By: #### G LULS ####Point of Care testing, Glucose [Mass/Vol] 122 mg/dL Normal [facility] Comment on above: Result Comment: [place] Glucose Reference Range is dependent on time and content of last meal. Glucose of more than 200 mg/dL in a nonstressed, ambulatory subject supports the diagnosis of Diabetes Mellitus. Performed By: #### G LULS ####Point of Care testing, Commemt1 Glu2: Cleaned Meter [facility] Comment on above: Performed By: #### G LULS ####Point of Care testing, Commemt2 WILL NOTIFY DR/RN [facility] Comment on above: Result Comment: PERF ORMED BY:[address] [address] [address] [place], [place] [phone] MEDICAL DIRECTORELI FINK M.D. Performed By: #### G LULS ####Point of Care testing, Glucose [Mass/Vol] 69 mg/dL [facility] Comment on above: Result Comment: [facility] Glucose Reference Range is dependent on time and content of last meal. Glucose of more than 200 mg/dL in a nonstressed, ambulatory subject supports the diagnosis of Diabetes Mellitus. Performed By: #### G LULS ####Point of Care testing, Commemt1 [facility] Comment on above: Result Comment: Glu2 : FOLLOW HYPOGLYCEMICPERFORMED BY:[address] [address] [address] [place]BAJALMISTYMECH[place], [place] [phone] MEDICAL DIRECTORELI FINK M.D. Performed By: #### G LULS ####Point of Care testing, Glucose [Mass/Vol] 52 mg/dL Off scale [facility] Comment on above: Result Comment: [facility] Glucose Reference Range is dependent on time and content of last meal. Glucose of more than 200 mg/dL in a nonstressed, ambulatory subject supports the diagnosis of Diabetes Mellitus. Performed By: #### G PILY ####Point of Care testing, Basic Metabolic Panelon 05-17 Anion gap [Moles/Vol] 6.6 mmol/L Normal 6.0-15.0 [facility] Comment on above: Performed By: #### B MP, CBC ####[facility] [id number] [place] [address] [facility] Calcium [Mass/Vol] 8.8 mg/dL Normal 8.2-10.2 [facility] Comment on above: Performed By: #### B MP, CBC ####[address] [place] [address] [place] Chloride [Moles/Vol] 106 mmol/L Normal 95-114 [facility] Comment on above: Performed By: #### B MP, CBC ####[address] [place] [address] [facility] CO2 [Moles/Vol] 26.0 mmol/L Normal 22.0-30.0 [facility] Comment on above: Performed By: #### B MP, CBC ####[address] [place] [address] [facility] Creatinine [Mass/Vol] 0.56 mg/dL Normal 0.44-1.03 [facility] Comment on above: Performed By: #### B MP, CBC ####[facility] [address] [place] [address] [place] Creatinine Clr Calc Pharmacy 91.73 [facility] Comment on above: Result Comment: PERF ORMED BY:[address] [place], [place] [phone] MEDICAL DIRECTORELI FINK M.D. Performed By: #### B MP, CBC ####[facility] [address] [place] [address] [place] Estimated GFR ( Martha > 60 Normal [facility] Comment on above: Result Comment: GFR estimated reference range: According to KDOQI guidelines, <60 ml/min/1.73m2 is sufficient to diagnose a patient with chronic kidney disease. Performed By: #### B MP, CBC ####[address] [place] [id number] [facility] Estimated GFR (Non- Am > 60 Normal [facility] Comment on above: Performed By: #### B MP, CBC ####[id number] [facility] Glucose [Mass/Vol] 406 mg/dL High 70-100 [facility] Comment on above: Result Comment: [place] Glucose Reference Range is dependent on time and content of last meal. Glucose of more than 200 mg/dL in a nonstressed, ambulatory subject supports the diagnosis of Diabetes Mellitus. ADA recommended reference range Performed By: #### B MP, CBC ####[id number] [facility] Potassium [Moles/Vol] 4.6 mmol/L Normal 3.5-5.1 [facility] Comment on above: Performed By: #### B MP, CBC ####[id number] [facility] Sodium [Moles/Vol] 134 mmol/L Low 136-146 [facility] Comment on above: Performed By: #### B MP, CBC ####[place] [id number] [facility] Urea nitrogen [Mass/Vol] 18 mg/dL Normal 9-23 [facility] Comment on above: Performed By: #### B MP, CBC ####[address] [address] [facility] Complete Blood Count Auto Di ffon 06-02-2022 Basophils (Bld) [#/Vol] 0.0 10*3/uL Normal 0.0-0.2 [facility] Comment on above: Result Comment: PERF ORMED BY:[address] [place], [place] [phone] MEDICAL DIRECTORELI FINK M.D. Performed By: #### B MP, CBC ####[address] [place] [address] [place] Basophils/100 WBC (Bld) 0.5 % Normal . [facility] Comment on above: Performed By: #### B MP, CBC ####[address] [address] [facility] Eosinophils (Bld) [#/Vol] 0.1 10*3/uL Normal 0.0-0.45 [facility] Comment on above: Performed By: #### B MP, CBC ####[address] [address] [facility] Eosinophils/100 WBC (Bld) 2.7 % Normal . [facility] Comment on above: Performed By: #### B MP, CBC ####[address] [address] [facility] Erythrocyte distribution width (RBC) [Ratio] 16.2 % High 11.9-15.3 [facility] Comment on above: Performed By: #### B MP, CBC ####[address] [address] [facility] Hematocrit (Bld) [Volume fraction] 32.3 % Low 34.0-46.4 [facility] Comment on above: Performed By: #### B MP, CBC ####[address] [address] [facility] Hemoglobin (Bld) [Mass/Vol] 10.7 g/dL Low 11.8-15.4 [facility] Comment on above: Performed By: #### B MP, CBC ####[address] [address] [facility] Lymphocytes (Bld) [#/Vol] 1.0 10*3/uL Normal 1.00-4.8 [facility] Comment on above: Performed By: #### B MP, CBC ####[address] [address] [facility] Lymphocytes/100 WBC (Bld) 25.4 % Normal . [facility] Comment on above: Performed By: #### B MP, CBC ####[address] [address] [facility] MCH (RBC) [Entitic mass] 30.5 pg Normal 24.7-34.3 [facility] Comment on above: Performed By: #### B MP, CBC ####[address] [address] [facility] MCV (RBC) [Entitic vol] 92.6 fL Normal 80-100 F [facility] Comment on above: Performed By: #### B MP, CBC ####[id number] [facility] Mean Corpuscular HGB Conc 33.0 g/dL Normal 32.0-35.0 [facility] Comment on above: Performed By: #### B MP, CBC ####[id number] [facility] Monocytes (Bld) [#/Vol] 0.3 10*3/uL Normal 0.0-0.8 [facility] Comment on above: Performed By: #### B MP, CBC ####[id number] [facility] Monocytes/100 WBC (Bld) 8.6 % Normal . [facility] Comment on above: Performed By: #### B MP, CBC ####[place] [id number] [facility] Neutrophils (Bld) [#/Vol] 2.5 10*3/uL Normal 1.8-7.7 [facility] Comment on above: Performed By: #### B MP, CBC ####[address] [id number] [facility] Neutrophils/100 WBC (Bld) 62.8 % Normal . [facility] Comment on above: Performed By: #### B MP, CBC ####[place] [id number] [facility] NRBC% 0.2 /100{WBC} Normal 0-0.5 [facility] Comment on above: Performed By: #### B MP, CBC ####[facility] [place] [address] [facility] Platelet mean volume (Bld) [Entitic vol] 7.3 fL Normal 6.3-10.7 [facility] Comment on above: Performed By: #### B MP, CBC ####[address] [address] [facility] Platelets (Bld) [#/Vol] 344 10*3/uL Normal 150-450 [facility] Comment on above: Performed By: #### B MP, CBC ####[address] [address] [facility] RBC (Bld) [#/Vol] 3.49 10*6/uL Low 3.60-5.00 [facility] Comment on above: Performed By: #### B MP, CBC ####[address] [address] [facility] WBC (Bld) [#/Vol] 4.0 10*3/uL Normal 3.8-11.6 [facility] Comment on above: Performed By: #### B MP, CBC ####[address] [address] [facility] FL guided lumbar puncture LP on 06-02-2022 FL guided lumbar puncture LP Normal [facility] Glucose Poct Glucometerson 0 06-02-2022 Glucose [Mass/Vol] 114 mg/dL Normal [facility] Comment on above: Result Comment: [facility] Glucose Reference Range is dependent on time and content of last meal. Glucose of more than 200 mg/dL in a nonstressed, ambulatory subject supports the diagnosis of Diabetes Mellitus.PERFORMED BY:[address] [address] [place], [place] [phone] MEDICAL DIRECTORELI FINK M.D. Performed By: #### G LUDIANNE ####Point of Care testing, Commemt1 Glu2: Cleaned Meter Normal [facility] Comment on above: Result Comment: PERF ORMED BY:[address] [address] [place], [place] [phone] MEDICAL DIRECTORELI FINK M.D. Performed By: #### G LULS ####Point of Care testing, Glucose [Mass/Vol] 188 mg/dL Normal [facility] Comment on above: Result Comment: [place] om Glucose Reference Range is dependent on time and content of last meal. Glucose of more than 200 mg/dL in a nonstressed, ambulatory subject supports the diagnosis of Diabetes Mellitus. Performed By: #### G LULS ####Point of Care testing, Glucose [Mass/Vol] 398 mg/dL Normal [facility] Comment on above: Result Comment: [place] om Glucose Reference Range is dependent on time and content of last meal. Glucose of more than 200 mg/dL in a nonstressed, ambulatory subject supports the diagnosis of Diabetes Mellitus.PERFORMED BY:[address] [address] [place], [place] [phone] MEDICAL DIRECTORELI FINK M.D. Performed By: #### G LULS ####Point of Care testing, Commemt1 [facility] Comment on above: Result Comment: Glu2 : WILL NOTIFY DR/PAULAERFORMED BY:[address] [address] [place]BAJ[place]MI[place], [place] [phone] MEDICAL ALTAGRACIA FINK M.D. Performed By: #### G LULS ####Point of Care testing, Glucose [Mass/Vol] 407 mg/dL Off scale high [facility] Comment on above: Result Comment: [place] om Glucose Reference Range is dependent on time and content of last meal. Glucose of more than 200 mg/dL in a nonstressed, ambulatory subject supports the diagnosis of Diabetes Mellitus. Performed By: #### G LULS ####Point of Care testing, MR cervical spine wo conon 0 06-02-2022 MR cervical spine wo con Normal [facility] Basic Metabolic Panelon 05-17 Anion gap [Moles/Vol] 9.9 mmol/L Normal 6.0-15.0 [facility] Comment on above: Performed By: #### C BC, BMP ####[address] [address] [facility] Calcium [Mass/Vol] 8.8 mg/dL Normal 8.2-10.2 [facility] Comment on above: Performed By: #### C BC, BMP ####[address] [place] [address] [facility] Chloride [Moles/Vol] 106 mmol/L Normal 95-114 [facility] Comment on above: Performed By: #### C BC, BMP ####[address] [address] [facility] CO2 [Moles/Vol] 26.4 mmol/L Normal 22.0-30.0 [facility] Comment on above: Performed By: #### C BC, BMP ####[address] [address] [facility] Creatinine [Mass/Vol] 0.53 mg/dL Normal 0.44-1.03 [facility] Comment on above: Performed By: #### C BC, BMP ####[address] [address] [facility] Creatinine Clr Calc Pharmacy 96.92 [facility] Comment on above: Result Comment: PERF ORMED BY:[address] [place], [place] [phone] MEDICAL ALTAGRACIA FINK M.D. Performed By: #### C BC, BMP ####[address] [address] [facility] Estimated GFR ( Martha > 60 [facility] Comment on above: Result Comment: GFR estimated reference range: According to KDOQI guidelines, <60 ml/min/1.73m2 is sufficient to diagnose a patient with chronic kidney disease. Performed By: #### C BC, BMP ####[address] [address] [facility] Estimated GFR (Non- Am > 60 [facility] Comment on above: Performed By: #### C BC, BMP ####[address] [address] [facility] Glucose [Mass/Vol] 338 mg/dL High 70-100 [facility] Comment on above: Result Comment: [place] Glucose Reference Range is dependent on time and content of last meal. Glucose of more than 200 mg/dL in a nonstressed, ambulatory subject supports the diagnosis of Diabetes Mellitus. ADA recommended reference range Performed By: #### C BC, BMP ####[address] [place] [address] [facility] Potassium [Moles/Vol] 4.3 mmol/L Normal 3.5-5.1 [facility] Comment on above: Performed By: #### C BC, BMP ####[address] [place] [id number] [facility] Sodium [Moles/Vol] 138 mmol/L Normal 136-146 [facility] Comment on above: Performed By: #### C BC, BMP ####[address] [place] [address] [facility] Urea nitrogen [Mass/Vol] 17 mg/dL Normal 9-23 [facility] Comment on above: Performed By: #### C BC, BMP ####[address] [address] [facility] Coagulation Profileon 2022 aPTT Coag (Bld) [Time] 25.8 s Normal 25.1-36.5 [facility] Comment on above: Result Comment: PERF ORMED BY:[address] [place], [place] [phone] MEDICAL ALTAGRACIA FINK M.D. Performed By: #### P P ####[address] [address] [facility] INR Coag (PPP) [Relative time] 0.9 {INR} Normal [facility] Comment on above: Result Comment: INR Therapeutic Range A) Pre- and Peroperative OAT started two weeks before surgery. NOT HIP SURGERY: 1.5 - 2.5 HIP SURGERY: 2 - 3 B) Primary and secondary prevention of venous THROMBOSIS: 2 - 3 C) Active venous thrombosis, pulmonary embolism and prevention of recurrent venous thrombosis: 2 - 3 D) Prevention of arterial thromboembolism including patients with mechanical heart valves: 3 - 4.5 Performed By: #### P P ####[address] PT Coag (PPP) [Time] 10.7 s Normal 9.0-12.9 [facility] Comment on above: Performed By: #### P P ####[address] Complete Blood Count Auto Di ffon 06-01-2022 Basophils (Bld) [#/Vol] 0.0 10*3/uL Normal 0.0-0.2 [facility] Comment on above: Result Comment: PERF ORMED BY:[address] [place], [place] [phone] MEDICAL DIRECTORELI FINK M.D. Performed By: #### C ROCIO, BMP ####[address] Basophils/100 WBC (Bld) 0.6 % Normal . F [facility] Comment on above: Performed By: #### C BC, BMP ####[address] Eosinophils (Bld) [#/Vol] 0.1 10*3/uL Normal 0.0-0.45 [facility] Comment on above: Performed By: #### C BC, BMP ####[address] Eosinophils/100 WBC (Bld) 1.8 % Normal . [facility] Comment on above: Performed By: #### C BC, BMP ####[address] Erythrocyte distribution width (RBC) [Ratio] 15.9 % High 11.9-15.3 [facility] Comment on above: Performed By: #### C BC, BMP ####[address] Hematocrit (Bld) [Volume fraction] 31.9 % Low 34.0-46.4 [facility] Comment on above: Performed By: #### C BC, BMP ####[address] Hemoglobin (Bld) [Mass/Vol] 10.4 g/dL Low 11.8-15.4 [facility] Comment on above: Performed By: #### C BC, BMP ####[address] Lymphocytes (Bld) [#/Vol] 0.8 10*3/uL Low 1.00-4.8 [facility] Comment on above: Performed By: #### C ROCIO, BMP ####[address] Lymphocytes/100 WBC (Bld) 14.2 % Normal . [facility] Comment on above: Performed By: #### C ROCIO, BMP ####[address] MCH (RBC) [Entitic mass] 30.4 pg Normal 24.7-34.3 [facility] Comment on above: Performed By: #### C ROCIO, BMP ####[address] MCV (RBC) [Entitic vol] 93.1 fL Normal 80-100 F [facility] Comment on above: Performed By: #### C BC, BMP ####[address] Mean Corpuscular HGB Conc 32.6 g/dL Normal 32.0-35.0 [facility] Comment on above: Performed By: #### C BC, BMP ####[address] Monocytes (Bld) [#/Vol] 0.4 10*3/uL Normal 0.0-0.8 [facility] Comment on above: Performed By: #### C BC, BMP ####[address] Monocytes/100 WBC (Bld) 6.6 % Normal . [facility] Comment on above: Performed By: #### C BC, BMP ####[address] [place] [address] [facility] Neutrophils (Bld) [#/Vol] 4.3 10*3/uL Normal 1.8-7.7 [facility] Comment on above: Performed By: #### C BC, BMP ####[address] [address] [facility] Neutrophils/100 WBC (Bld) 76.8 % Normal . [facility] Comment on above: Performed By: #### C ROCIO, BMP ####[address] [address] [facility] NRBC% 0.1 /100{WBC} Normal 0-0.5 [facility] Comment on above: Performed By: #### C ROCIO, BMP ####[address] [address] [facility] Platelet mean volume (Bld) [Entitic vol] 7.4 fL Normal 6.3-10.7 [facility] Comment on above: Performed By: #### C ROCIO, BMP ####[address] [address] [facility] Platelets (Bld) [#/Vol] 303 10*3/uL Normal 150-450 [facility] Comment on above: Performed By: #### C BC, BMP ####[address] [address] [facility] RBC (Bld) [#/Vol] 3.43 10*6/uL Low 3.60-5.00 [facility] Comment on above: Performed By: #### C BC, BMP ####[address] [address] [facility] WBC (Bld) [#/Vol] 5.5 10*3/uL Normal 3.8-11.6 [facility] Comment on above: Performed By: #### C BC, BMP ####[address] [address] [facility] Glucose Poct Glucometerson 0 06-01-2022 Glucose [Mass/Vol] 137 mg/dL Normal [facility] Comment on above: Result Comment: [facility] Glucose Reference Range is dependent on time and content of last meal. Glucose of more than 200 mg/dL in a nonstressed, ambulatory subject supports the diagnosis of Diabetes Mellitus.PERFORMED BY:[address] DANIELCarmineGiancarloMI[place]ME[place], [place] [phone] MEDICAL DIRECTORELI FINK M.D. Performed By: #### G LULS ####Point of Care testing, Glucose [Mass/Vol] 262 mg/dL Normal [facility] Comment on above: Result Comment: [facility] Glucose Reference Range is dependent on time and content of last meal. Glucose of more than 200 mg/dL in a nonstressed, ambulatory subject supports the diagnosis of Diabetes Mellitus.PERFORMED BY:[address] [place], [place] [phone] MEDICAL ALTAGRACIA FINK M.D. Performed By: #### G LULS ####Point of Care testing, Glucose [Mass/Vol] 358 mg/dL Normal [facility] Comment on above: Result Comment: [facility] Glucose Reference Range is dependent on time and content of last meal. Glucose of more than 200 mg/dL in a nonstressed, ambulatory subject supports the diagnosis of Diabetes Mellitus.PERFORMED BY:[address] [address] [place], [place] [phone] MEDICAL ALTAGRACIA FINK M.D. Performed By: #### G LULS ####Point of Care testing, Glucose [Mass/Vol] 356 mg/dL Normal [facility] Comment on above: Result Comment: [facility] Glucose Reference Range is dependent on time and content of last meal. Glucose of more than 200 mg/dL in a nonstressed, ambulatory subject supports the diagnosis of Diabetes Mellitus.PERFORMED BY:[address] [place], [place] [phone] AUSTIN FINK M.D. Performed By: #### G LULS ####Point of Care testing, Stool Occult Blood (Guaiac)o n 06-01-2022 Stool Occult Blood (Guaiac) Normal [facility] Comment on above: Performed By: #### O B(GUAIAC) ####[facility] [id number] [place] [address] [facility] aPTT Mixing Studyon 06-01-19 23 APTT 1:1 Mix Saline Normal . [facility] Comment on above: Result Comment: Test not performed Performed By: #### P TT MIX ####[facility] , aPTT 1:1 Normal Plasma Normal . [facility] Comment on above: Result Comment: Test not performed Performed By: #### P TT MIX ####[facility] , APTT 1:1 FLIGHT OPERATIONS ENGINEER Mix 60min Incub Normal . [facility] Comment on above: Result Comment: Test not performed Performed at: - [facility] [id number] Package Clerk: Tamara Chris MD, Phone: [phone] BY:[address] [address] [address] [place], [place] [phone] MEDICAL DIRECTORELI FINK M.D. Performed By: #### P TT MIX ####[facility] , aPTT Coag (Bld) [Time] 22.4 s Low 22.9-30.2 [facility] Comment on above: Result Comment: The aPTT is normal so plasma mixing tests are not indicated. Performed By: #### P TT MIX ####[facility] , Angiotensin Converting Enzym mara 05-31-2022 Angiotensin converting enzyme [Catalytic activity/Vol] U/L Normal 14-82 [facility] Comment on above: Result Comment: Perf ormed at: [facility] [address] [id number] Package Clerk: Karthikeyan Pickering PhD, Phone: [phone] BY:[address] [address] [address] [place], [place] [phone] MEDICAL DIRECTORELI FINK M.D. Performed By: #### Q UANT TB, DAI ####[facility] , Basic Metabolic Panelon 05-17 Anion gap [Moles/Vol] 7.1 mmol/L Normal 6.0-15.0 [facility] Comment on above: Performed By: #### B MP, CBC ####[facility] [id number] [place] [address] [facility] Calcium [Mass/Vol] 8.6 mg/dL Normal 8.2-10.2 [facility] Comment on above: Performed By: #### B MP, CBC ####[address] [address] [facility] Chloride [Moles/Vol] 106 mmol/L Normal 95-114 [facility] Comment on above: Performed By: #### B MP, CBC ####[address] [place] [address] [facility] CO2 [Moles/Vol] 25.9 mmol/L Normal 22.0-30.0 [facility] Comment on above: Performed By: #### B MP, CBC ####[address] [address] [facility] Creatinine [Mass/Vol] 0.46 mg/dL Normal 0.44-1.03 [facility] Comment on above: Performed By: #### B MP, CBC ####[facility] [address] [place] [address] [place] Creatinine Clr Calc Pharmacy 110.38 Normal [facility] Comment on above: Result Comment: PERF ORMED BY:[address] [address] [place], [place] [phone] MEDICAL DIRECTORELI FINK M.D. Performed By: #### B MP, CBC ####[address] [address] [place] Estimated GFR ( Martha > 60 Normal [facility] Comment on above: Result Comment: GFR estimated reference range: According to KDOQI guidelines, <60 ml/min/1.73m2 is sufficient to diagnose a patient with chronic kidney disease. Performed By: #### B MP, CBC ####[place] [id number] [facility] Estimated GFR (Non- Am > 60 Normal [facility] Comment on above: Performed By: #### B MP, CBC ####[place] [id number] [facility] Glucose [Mass/Vol] 278 mg/dL High 70-100 [facility] Comment on above: Result Comment: [place] Glucose Reference Range is dependent on time and content of last meal. Glucose of more than 200 mg/dL in a nonstressed, ambulatory subject supports the diagnosis of Diabetes Mellitus. ADA recommended reference range Performed By: #### B MP, CBC ####[place] [id number] [facility] Potassium [Moles/Vol] 4.0 mmol/L Normal 3.5-5.1 [facility] Comment on above: Performed By: #### B MP, CBC ####[place] [id number] [facility] Sodium [Moles/Vol] 135 mmol/L Low 136-146 [facility] Comment on above: Performed By: #### B MP, CBC ####[place] [id number] [facility] Urea nitrogen [Mass/Vol] 15 mg/dL Normal 9-23 [facility] Comment on above: Performed By: #### B MP, CBC ####[place] [id number] [facility] CT abdomen pelvis w conon CT abdomen pelvis w con Normal F [facility] CT chest w conon 05-31-2022 CT chest w con Normal [facility] Complete Blood Count Auto Di ffon 05-31-2022 Basophils (Bld) [#/Vol] 0.0 10*3/uL Normal 0.0-0.2 [facility] Comment on above: Result Comment: PERF ORMED BY:[address] [place], [place] [phone] MEDICAL DIRECTOREIL FINK M.D. Performed By: #### B MP, CBC ####[place] [address] Basophils/100 WBC (Bld) 0.5 % Normal . [facility] Comment on above: Performed By: #### B MP, CBC ####[address] Eosinophils (Bld) [#/Vol] 0.1 10*3/uL Normal 0.0-0.45 [facility] Comment on above: Performed By: #### B MP, CBC ####[address] Eosinophils/100 WBC (Bld) 1.0 % Normal . [facility] Comment on above: Performed By: #### B MP, CBC ####[address] Erythrocyte distribution width (RBC) [Ratio] 16.4 % High 11.9-15.3 [facility] Comment on above: Performed By: #### B MP, CBC ####[address] Hematocrit (Bld) [Volume fraction] 32.1 % Low 34.0-46.4 [facility] Comment on above: Performed By: #### B MP, CBC ####[address] Hemoglobin (Bld) [Mass/Vol] 10.8 g/dL Low 11.8-15.4 [facility] Comment on above: Performed By: #### B MP, CBC ####[address] Lymphocytes (Bld) [#/Vol] 0.8 10*3/uL Low 1.00-4.8 [facility] Comment on above: Performed By: #### B MP, CBC ####[address] Lymphocytes/100 WBC (Bld) 10.7 % Normal . [facility] Comment on above: Performed By: #### B MP, CBC ####[address] MCH (RBC) [Entitic mass] 30.7 pg Normal 24.7-34.3 [facility] Comment on above: Performed By: #### B MP, CBC ####[address] MCV (RBC) [Entitic vol] 91.8 fL Normal 80-100 [facility] Comment on above: Performed By: #### B MP, CBC ####[address] Mean Corpuscular HGB Conc 33.5 g/dL Normal 32.0-35.0 [facility] Comment on above: Performed By: #### B MP, CBC ####[address] Monocytes (Bld) [#/Vol] 0.4 10*3/uL Normal 0.0-0.8 [facility] Comment on above: Performed By: #### B MP, CBC ####[address] Monocytes/100 WBC (Bld) 5.1 % Normal . [facility] Comment on above: Performed By: #### B MP, CBC ####[address] Neutrophils (Bld) [#/Vol] 6.2 10*3/uL Normal 1.8-7.7 [facility] Comment on above: Performed By: #### B MP, CBC ####[address] Neutrophils/100 WBC (Bld) 82.7 % Normal . [facility] Comment on above: Performed By: #### B MP, CBC ####[address] NRBC% 0.1 /100{WBC} Normal 0-0.5 [facility] Comment on above: Performed By: #### B MP, CBC ####[place] [id number] [facility] Platelet mean volume (Bld) [Entitic vol] 7.3 fL Normal 6.3-10.7 [facility] Comment on above: Performed By: #### B MP, CBC ####[place] [id number] [facility] Platelets (Bld) [#/Vol] 261 10*3/uL Normal 150-450 [facility] Comment on above: Performed By: #### B MP, CBC ####[place] [id number] [facility] RBC (Bld) [#/Vol] 3.50 10*6/uL Low 3.60-5.00 [facility] Comment on above: Performed By: #### B MP, CBC ####[place] [id number] [facility] WBC (Bld) [#/Vol] 7.5 10*3/uL Normal 3.8-11.6 [facility] Comment on above: Performed By: #### B MP, CBC ####[place] [id number] [facility] Glucose Poct Glucometerson 0 05-31-2022 Glucose [Mass/Vol] 223 mg/dL Normal [facility] Comment on above: Result Comment: [facility] Glucose Reference Range is dependent on time and content of last meal. Glucose of more than 200 mg/dL in a nonstressed, ambulatory subject supports the diagnosis of Diabetes Mellitus.PERFORMED BY:[address] [place], [place] [phone] MEDICAL DIRECTORELI FINK M.D. Performed By: #### G PILY ####Point of Care testing, Glucose [Mass/Vol] 224 mg/dL Normal [facility] Comment on above: Result Comment: [place] om Glucose Reference Range is dependent on time and content of last meal. Glucose of more than 200 mg/dL in a nonstressed, ambulatory subject supports the diagnosis of Diabetes Mellitus.PERFORMED BY:[address] [address] [place] [phone] MEDICAL DIRECTORELI FINK M.D. Performed By: #### G LULS ####Point of Care testing, Glucose [Mass/Vol] 331 mg/dL Normal [facility] Comment on above: Result Comment: [facility] Glucose Reference Range is dependent on time and content of last meal. Glucose of more than 200 mg/dL in a nonstressed, ambulatory subject supports the diagnosis of Diabetes Mellitus.PERFORMED BY:[address] [place], [place] [phone] MEDICAL DIRECTORELI FINK M.D. Performed By: #### G LULS ####Point of Care testing, Glucose [Mass/Vol] 256 mg/dL Normal [facility] Comment on above: Result Comment: [facility] Glucose Reference Range is dependent on time and content of last meal. Glucose of more than 200 mg/dL in a nonstressed, ambulatory subject supports the diagnosis of Diabetes Mellitus.PERFORMED BY:[address] [place], [place] [phone] MEDICAL DIRECTORELI FINK M.D. Performed By: #### G LULS ####Point of Care testing, QuantiFERON TB Goldon 2022 QFTB Criteria Normal . [facility] Comment on above: Result Comment: Kevin tiFERON-TB Gold Plus is a qualitative indirect test for M tuberculosis infection (including disease) and is intended for use in conjunction with risk assessment, radiography, and other medical and diagnostic evaluations. The QuantiFERON-TB Gold Plus result is determined by subtracting the Nil value from either TB antigen (Ag) value. The Mitogen tube serves as a control for the test. Performed By: #### Q UANT TB, DAI ####[facility] , Quant TB Ag Value 0.06 Normal . [facility] Comment on above: Performed By: #### Q UANT TB, DAI ####[facility] , Quant TB Gold Plus Negative Normal Negative [facility] Comment on above: Result Comment: No r esponse to M tuberculosis antigens detected. Infection with M tuberculosis is unlikely, but high risk individuals should be considered for additional testing (ATS/IDSA/CDC Clinical Practice Guidelines, 2017). The reference range is an Antigen minus Nil result of <0.35 IU/mL. The specimen received for QuantiFERON testing was incubated by the ordering institution. Specific procedures outlined in our Directory of Services and in the package insert for the QuantiFERON Gold (In Tube) test must be followed to enable for proper stimulation of cells for the production of interferon gamma. Chemiluminescence immunoassay methodology Performed at: [facility] [id number] Package Clerk: Karthikeyan Pickering PhD, Phone: [phone] BY:[facility] [place], [place] [phone] MEDICAL DIRECTORELI FINK M.D. Performed By: #### Q UANT TB, DAI ####[facility] , Quant TB2 Ag Value 0.01 Normal . [facility] Comment on above: Performed By: #### Q UANT TB, DAI ####[facility] , Quantiferon Nil Value 0.02 Normal . [facility] Comment on above: Performed By: #### Q UANT TB, DAI ####[facility] , Quantiferon TB Mitogen >10.00 Normal . [facility] Comment on above: Performed By: #### Q UANT TB, DAI ####[facility] , Basic Metabolic Panelon 05-17 Anion gap [Moles/Vol] 8.4 mmol/L Normal 6.0-15.0 [facility] Comment on above: Performed By: #### B MP, CBC ####[facility] [address] [place] [address] [facility] Calcium [Mass/Vol] 8.3 mg/dL Normal 8.2-10.2 [facility] Comment on above: Performed By: #### B MP, CBC ####[address] [address] [facility] Chloride [Moles/Vol] 105 mmol/L Normal 95-114 [facility] Comment on above: Performed By: #### B MP, CBC ####[place] [id number] [facility] CO2 [Moles/Vol] 26.2 mmol/L Normal 22.0-30.0 [facility] Comment on above: Performed By: #### B MP, CBC ####[place] [id number] [facility] Creatinine [Mass/Vol] 0.48 mg/dL Normal 0.44-1.03 [facility] Comment on above: Performed By: #### B MP, CBC ####[place] [id number] [facility] Creatinine Clr Calc Pharmacy 109.50 [facility] Comment on above: Result Comment: PERF ORMED BY:[address] [place], [place] [phone] MEDICAL ALTAGRACIA FINK M.D. Performed By: #### B MP, CBC ####[place] [id number] [facility] Estimated GFR ( Martha > 60 [facility] Comment on above: Result Comment: GFR estimated reference range: According to KDOQI guidelines, <60 ml/min/1.73m2 is sufficient to diagnose a patient with chronic kidney disease. Performed By: #### B MP, CBC ####[place] [id number] [facility] Estimated GFR (Non- Am > 60 [facility] Comment on above: Performed By: #### B MP, CBC ####[place] [id number] [facility] Glucose [Mass/Vol] 206 mg/dL Significant change up 70-100 [facility] Comment on above: Result Comment: [place] Glucose Reference Range is dependent on time and content of last meal. Glucose of more than 200 mg/dL in a nonstressed, ambulatory subject supports the diagnosis of Diabetes Mellitus. ADA recommended reference range Performed By: #### B MP, CBC ####[facility] [place] [address] [facility] Potassium [Moles/Vol] 3.6 mmol/L Normal 3.5-5.1 [facility] Comment on above: Performed By: #### B MP, CBC ####[address] [address] [facility] Sodium [Moles/Vol] 136 mmol/L Significant change down 136-146 [facility] Comment on above: Performed By: #### B MP, CBC ####[address] [place] [address] [facility] Urea nitrogen [Mass/Vol] 9 mg/dL Normal 9-23 [facility] Comment on above: Performed By: #### B MP, CBC ####[address] [address] [facility] Complete Blood Count Auto Di ffon 2022 Basophils (Bld) [#/Vol] 0.0 10*3/uL Normal 0.0-0.2 [facility] Comment on above: Result Comment: PERF ORMED BY:[address] [place], [place] [phone] MEDICAL DIRECTORELI FINK M.D. Performed By: #### B MP, CBC ####[address] [address] [facility] Basophils/100 WBC (Bld) 0.4 % Normal . [facility] Comment on above: Performed By: #### B MP, CBC ####[address] [place] [address] [facility] Eosinophils (Bld) [#/Vol] 0.1 10*3/uL Normal 0.0-0.45 [facility] Comment on above: Performed By: #### B MP, CBC ####[address] Eosinophils/100 WBC (Bld) 1.0 % Normal . [facility] Comment on above: Performed By: #### B MP, CBC ####[place] [id number] [facility] Erythrocyte distribution width (RBC) [Ratio] 17.1 % High 11.9-15.3 [facility] Comment on above: Performed By: #### B MP, CBC ####[address] Hematocrit (Bld) [Volume fraction] 27.1 % Low 34.0-46.4 [facility] Comment on above: Performed By: #### B MP, CBC ####[address] Hemoglobin (Bld) [Mass/Vol] 9.1 g/dL Low 11.8-15.4 [facility] Comment on above: Performed By: #### B MP, CBC ####[address] Lymphocytes (Bld) [#/Vol] 0.7 10*3/uL Low 1.00-4.8 [facility] Comment on above: Performed By: #### B MP, CBC ####[address] Lymphocytes/100 WBC (Bld) 8.9 % Normal . [facility] Comment on above: Performed By: #### B MP, CBC ####[place] [id number] [facility] MCH (RBC) [Entitic mass] 30.6 pg Normal 24.7-34.3 [facility] Comment on above: Performed By: #### B MP, CBC ####[place] [id number] [facility] MCV (RBC) [Entitic vol] 91.1 fL Normal 80-100 [facility] Comment on above: Performed By: #### B MP, CBC ####[address] [address] [facility] Mean Corpuscular HGB Conc 33.6 g/dL Normal 32.0-35.0 [facility] Comment on above: Performed By: #### B MP, CBC ####[address] [address] [facility] Monocytes (Bld) [#/Vol] 0.2 10*3/uL Normal 0.0-0.8 [facility] Comment on above: Performed By: #### B MP, CBC ####[address] [address] [facility] Monocytes/100 WBC (Bld) 3.0 % Normal . [facility] Comment on above: Performed By: #### B MP, CBC ####[address] [address] [facility] Neutrophils (Bld) [#/Vol] 6.9 10*3/uL Normal 1.8-7.7 [facility] Comment on above: Performed By: #### B MP, CBC ####[address] [address] [facility] Neutrophils/100 WBC (Bld) 86.7 % Normal . [facility] Comment on above: Performed By: #### B MP, CBC ####[address] [address] [facility] NRBC% 0.0 /100{WBC} Normal 0-0.5 [facility] Comment on above: Performed By: #### B MP, CBC ####[address] [address] [facility] Platelet mean volume (Bld) [Entitic vol] 7.2 fL Normal 6.3-10.7 [facility] Comment on above: Performed By: #### B MP, CBC ####[address] [address] [facility] Platelets (Bld) [#/Vol] 241 10*3/uL Normal 150-450 [facility] Comment on above: Performed By: #### B MP, CBC ####[address] [place] [address] [facility] RBC (Bld) [#/Vol] 2.97 10*6/uL Low 3.60-5.00 [facility] Comment on above: Performed By: #### B MP, CBC ####[address] [address] [facility] WBC (Bld) [#/Vol] 7.9 10*3/uL Normal 3.8-11.6 [facility] Comment on above: Performed By: #### B MP, CBC ####[address] [address] [facility] Glucose Poct Glucometerson 0 2022 Glucose [Mass/Vol] 342 mg/dL Normal [facility] Comment on above: Result Comment: [place] Glucose Reference Range is dependent on time and content of last meal. Glucose of more than 200 mg/dL in a nonstressed, ambulatory subject supports the diagnosis of Diabetes Mellitus.PERFORMED BY:[address] [address] [place], [place] [phone] MEDICAL DIRECTORELI FINK M.D. Performed By: #### G LULS ####Point of Care testing, Commemt1 Glu2: Cleaned Meter Normal [facility] Comment on above: Result Comment: PERF ORMED BY:[address] [address] [address], [place] [phone] MEDICAL DIRECTORELI FINK M.D. Performed By: #### G LULS ####Point of Care testing, Glucose [Mass/Vol] 387 mg/dL Normal [facility] Comment on above: Result Comment: [place] om Glucose Reference Range is dependent on time and content of last meal. Glucose of more than 200 mg/dL in a nonstressed, ambulatory subject supports the diagnosis of Diabetes Mellitus. Performed By: #### G LULS ####Point of Care testing, Glucose [Mass/Vol] 230 mg/dL Normal [facility] Comment on above: Result Comment: [place] om Glucose Reference Range is dependent on time and content of last meal. Glucose of more than 200 mg/dL in a nonstressed, ambulatory subject supports the diagnosis of Diabetes Mellitus.PERFORMED BY:[facility] [place], [place] [phone] MEDICAL DIRECTORELI FINK M.D. Performed By: #### G LUDIANNE ####Point of Care testing, Glucose [Mass/Vol] 247 mg/dL Normal [facility] Comment on above: Result Comment: [facility] Glucose Reference Range is dependent on time and content of last meal. Glucose of more than 200 mg/dL in a nonstressed, ambulatory subject supports the diagnosis of Diabetes Mellitus.PERFORMED BY:[address], [place] [phone] MEDICAL DIRECTORELI FINK M.D. Performed By: #### G LUDIANNE ####Point of Care testing, MR head/brain wo/w conon MR head/brain wo/w con Normal [facility] Arterial Blood Gason 023 ABG Base Excess -1.4 mmol/L Normal -3.0-3.0 [facility] Comment on above: Performed By: #### A BG ####Point of Care testing, ABG Frac Inspired O2 30 % Normal [facility] Comment on above: Performed By: #### A BG ####Point of Care testing, ABG Oxygen Content 5.7 mmol/L Low 6.6-9.7 [facility] Comment on above: Performed By: #### A BG ####Point of Care testing, ABG Oxygen Saturation 99.0 % Normal 95.0-100.0 [facility] Comment on above: Performed By: #### A BG ####Point of Care testing, ABG PCO2 28.7 mm[Hg] Off scale low 35.0-45.0 [facility] Comment on above: Performed By: #### A BG ####Point of Care testing, ABG PEEP 5 Normal [facility] Comment on above: Performed By: #### A BG ####Point of Care testing, ABG PH 7.49 High 7.35-7.45 [facility] Comment on above: Performed By: #### A BG ####Point of Care testing, ABG PO2 149.0 mm[Hg] Off scale high 80.0-100.0 [facility] Comment on above: Performed By: #### A BG ####Point of Care testing, ABG TV 400 mL [facility] Comment on above: Performed By: #### A BG ####Point of Care testing, CO2 [Moles/Vol] 22.3 mmol/L Low 23.0-27.0 [facility] Comment on above: Performed By: #### A BG ####Point of Care testing, HCO3 (Bld) [Moles/Vol] 21.4 mmol/L Low 23.0-29.0 [facility] Comment on above: Performed By: #### A BG ####Point of Care testing, Respiratory Critical [facility] Comment on above: Result Comment: Crit ical Value called on: 05/29/2022 at 05:12PERFORMED BY:[address] [address] [place] [place], [place] [phone] MEDICAL ALTAGRACIA FINK M.D. Performed By: #### A BG ####Point of Care testing, Set Respiratory Rate 20 [facility] Comment on above: Performed By: #### A BG ####Point of Care testing, VBG Draw Site Right Radial [facility] Comment on above: Performed By: #### A BG ####Point of Care testing, Ventilator Mode AC [facility] Comment on above: Performed By: #### A BG ####Point of Care testing, Complete Blood Count Auto Di ffon 05-29-2022 Basophils (Bld) [#/Vol] 0.1 10*3/uL Normal 0.0-0.2 [facility] Comment on above: Result Comment: PERF ORMED BY:[place] [address] [place] [place], [place] [phone] MEDICAL DIRECTORELI FINK M.D. Performed By: #### C MP, CBC ####[address] Basophils/100 WBC (Bld) 0.5 % Normal . F [facility] Comment on above: Performed By: #### C MP, CBC ####[address] Eosinophils (Bld) [#/Vol] 0.0 10*3/uL Normal 0.0-0.45 [facility] Comment on above: Performed By: #### C MP, CBC ####[address] Eosinophils/100 WBC (Bld) 0.3 % Normal . [facility] Comment on above: Performed By: #### C MP, CBC ####[address] Erythrocyte distribution width (RBC) [Ratio] 17.7 % High 11.9-15.3 [facility] Comment on above: Performed By: #### C MP, CBC ####[address] Hematocrit (Bld) [Volume fraction] 24.4 % Low 34.0-46.4 [facility] Comment on above: Performed By: #### C MP, CBC ####[address] Hemoglobin (Bld) [Mass/Vol] 8.1 g/dL Low 11.8-15.4 [facility] Comment on above: Performed By: #### C MP, CBC ####[address] Lymphocytes (Bld) [#/Vol] 1.2 10*3/uL Normal 1.00-4.8 [facility] Comment on above: Performed By: #### C MP, CBC ####[address] Lymphocytes/100 WBC (Bld) 10.6 % Normal . [facility] Comment on above: Performed By: #### C MP, CBC ####[address] MCH (RBC) [Entitic mass] 30.2 pg Normal 24.7-34.3 [facility] Comment on above: Performed By: #### C MP, CBC ####[address] MCV (RBC) [Entitic vol] 91.1 fL Normal 80-100 F [facility] Comment on above: Performed By: #### C MP, CBC ####[address] Mean Corpuscular HGB Conc 33.2 g/dL Normal 32.0-35.0 [facility] Comment on above: Performed By: #### C MP, CBC ####[address] Monocytes (Bld) [#/Vol] 0.5 10*3/uL Normal 0.0-0.8 [facility] Comment on above: Performed By: #### C MP, CBC ####[address] Monocytes/100 WBC (Bld) 4.5 % Normal . F [facility] Comment on above: Performed By: #### C MP, CBC ####[address] Neutrophils (Bld) [#/Vol] 9.4 10*3/uL High 1.8-7.7 [facility] Comment on above: Performed By: #### C MP, CBC ####[address] Neutrophils/100 WBC (Bld) 84.1 % Normal . [facility] Comment on above: Performed By: #### C MP, CBC ####[address] NRBC% 0.1 /100{WBC} Normal 0-0.5 [facility] Comment on above: Performed By: #### C MP, CBC ####[place] [id number] [facility] Platelet mean volume (Bld) [Entitic vol] 6.8 fL Normal 6.3-10.7 [facility] Comment on above: Performed By: #### C MP, CBC ####[place] [id number] [facility] Platelets (Bld) [#/Vol] 244 10*3/uL Normal 150-450 [facility] Comment on above: Performed By: #### C MP, CBC ####[address] RBC (Bld) [#/Vol] 2.68 10*6/uL Low 3.60-5.00 [facility] Comment on above: Performed By: #### C MP, CBC ####[address] WBC (Bld) [#/Vol] 11.2 10*3/uL Normal 3.8-11.6 [facility] Comment on above: Performed By: #### C MP, CBC ####[address] Comprehensive Metabolic Pane mary beth 05-29-2022 Albumin [Mass/Vol] 2.4 g/dL Low 3.2-5.5 [facility] Comment on above: Performed By: #### C MP, CBC ####[address] Albumin/Globulin [Mass ratio] 1.0 {ratio} Normal [facility] Comment on above: Performed By: #### C MP, CBC ####[place] [id number] [facility] ALP [Catalytic activity/Vol] 94 U/L High 32-92 [facility] Comment on above: Performed By: #### C MP, CBC ####[address] ALT [Catalytic activity/Vol] 45 U/L Normal 10-60 [facility] Comment on above: Performed By: #### C MP, CBC ####[place] [address] [place] [address] [facility] Anion gap [Moles/Vol] 11.3 mmol/L Normal 6.0-15.0 [facility] Comment on above: Performed By: #### C MP, CBC ####[address] [address] [facility] AST [Catalytic activity/Vol] 58 U/L High 10-42 [facility] Comment on above: Performed By: #### C MP, CBC ####[address] [address] [facility] Bilirubin [Mass/Vol] 0.6 mg/dL Normal 0.3-1.2 [facility] Comment on above: Performed By: #### C MP, CBC ####[address] [address] [facility] Calcium [Mass/Vol] 8.6 mg/dL Normal 8.2-10.2 [facility] Comment on above: Performed By: #### C MP, CBC ####[address] [address] [facility] Chloride [Moles/Vol] 112 mmol/L Normal 95-114 [facility] Comment on above: Performed By: #### C MP, CBC ####[address] [address] [facility] CO2 [Moles/Vol] 22.4 mmol/L Normal 22.0-30.0 [facility] Comment on above: Performed By: #### C MP, CBC ####[address] [address] [facility] Creatinine [Mass/Vol] 0.63 mg/dL Normal 0.44-1.03 [facility] Comment on above: Performed By: #### C MP, CBC ####[address] [address] [place] Creatinine Clr Calc Pharmacy 79.64 Normal [facility] Comment on above: Result Comment: PERF ORMED BY:[facility] [place] [address] [place], [place] [phone] MEDICAL DIRECTORELI FINK M.D. Performed By: #### C MP, CBC ####[address] [address] [facility] Estimated GFR ( Martha > 60 Normal [facility] Comment on above: Result Comment: GFR estimated reference range: According to KDOQI guidelines, <60 ml/min/1.73m2 is sufficient to diagnose a patient with chronic kidney disease. Performed By: #### C MP, CBC ####[address] [address] [facility] Estimated GFR (Non- Am > 60 Normal [facility] Comment on above: Performed By: #### C MP, CBC ####[address] [address] [facility] Globulin (S) [Mass/Vol] 2.4 g/dL Normal [facility] Comment on above: Performed By: #### C MP, CBC ####[address] [address] [facility] Glucose [Mass/Vol] 76 mg/dL Significant change down 70-100 [facility] Comment on above: Result Comment: [place] Glucose Reference Range is dependent on time and content of last meal. Glucose of more than 200 mg/dL in a nonstressed, ambulatory subject supports the diagnosis of Diabetes Mellitus. ADA recommended reference range Performed By: #### C MP, CBC ####[address] [address] [facility] Potassium [Moles/Vol] 3.7 mmol/L Normal 3.5-5.1 [facility] Comment on above: Performed By: #### C MP, CBC ####[place] [id number] [facility] Protein [Mass/Vol] 4.8 g/dL Significant change down 6.1-7.9 [facility] Comment on above: Performed By: #### C MP, CBC ####[address] [place] [address] [facility] Sodium [Moles/Vol] 142 mmol/L Normal 136-146 [facility] Comment on above: Performed By: #### C MP, CBC ####[facility] [place] [address] [facility] Urea nitrogen [Mass/Vol] 20 mg/dL Normal 9-23 [facility] Comment on above: Performed By: #### C MP, CBC ####[facility] [place] [address] [facility] Glucose Poct Glucometerson 0 05-29-2022 Glucose [Mass/Vol] 294 mg/dL Normal [facility] Comment on above: Result Comment: [facility] Glucose Reference Range is dependent on time and content of last meal. Glucose of more than 200 mg/dL in a nonstressed, ambulatory subject supports the diagnosis of Diabetes Mellitus.PERFORMED BY:[address] [place], [place] [phone] MEDICAL DIRECTORELI FINK M.D. Performed By: #### G LULS ####Point of Care testing, Commemt1 Glu2: Cleaned Meter [facility] Comment on above: Result Comment: PERF ORMED BY:[place] [address] [place], [place] [phone] MEDICAL ALTAGRACIA FINK M.D. Performed By: #### G LULS ####Point of Care testing, Glucose [Mass/Vol] 244 mg/dL Normal [facility] Comment on above: Result Comment: [facility] Glucose Reference Range is dependent on time and content of last meal. Glucose of more than 200 mg/dL in a nonstressed, ambulatory subject supports the diagnosis of Diabetes Mellitus. Performed By: #### G LULS ####Point of Care testing, Commemt1 Glu2: Cleaned Meter [facility] Comment on above: Result Comment: PERF ORMED BY:[address] [place], [place] [phone] MEDICAL DIRECTORELI FINK M.D. Performed By: #### G LULS ####Point of Care testing, Glucose [Mass/Vol] 83 mg/dL Normal [facility] Comment on above: Result Comment: [place] om Glucose Reference Range is dependent on time and content of last meal. Glucose of more than 200 mg/dL in a nonstressed, ambulatory subject supports the diagnosis of Diabetes Mellitus. Performed By: #### G LULS ####Point of Care testing, Commemt1 Glu2: Cleaned Meter [facility] Comment on above: Result Comment: PERF ORMED BY:[place] [address] [place], [place] [phone] MEDICAL DIRECTORELI FINK M.D. Performed By: #### G LULS ####Point of Care testing, Glucose [Mass/Vol] 91 mg/dL Normal [facility] Comment on above: Result Comment: [place] om Glucose Reference Range is dependent on time and content of last meal. Glucose of more than 200 mg/dL in a nonstressed, ambulatory subject supports the diagnosis of Diabetes Mellitus. Performed By: #### G LULS ####Point of Care testing, Commemt1 Glu2: Cleaned Meter [facility] Comment on above: Result Comment: PERF ORMED BY:[place] [address] [place], [place] [phone] MEDICAL ALTAGRACIA FINK M.D. Performed By: #### G LULS ####Point of Care testing, Glucose [Mass/Vol] 81 mg/dL Normal [facility] Comment on above: Result Comment: [place] om Glucose Reference Range is dependent on time and content of last meal. Glucose of more than 200 mg/dL in a nonstressed, ambulatory subject supports the diagnosis of Diabetes Mellitus. Performed By: #### G LULS ####Point of Care testing, Commemt1 Glu2: Cleaned Meter [facility] Comment on above: Result Comment: PERF ORMED BY:[place] [address] [place] [phone] MEDICAL DIRECTORELI FINK M.D. Performed By: #### G LULS ####Point of Care testing, Glucose [Mass/Vol] 97 mg/dL Normal [facility] Comment on above: Result Comment: [facility] Glucose Reference Range is dependent on time and content of last meal. Glucose of more than 200 mg/dL in a nonstressed, ambulatory subject supports the diagnosis of Diabetes Mellitus. Performed By: #### G LULS ####Point of Care testing, Lactic Acidon 05-29-2022 Lactate [Moles/Vol] 1.6 mmol/L Normal 0.5-2.2 [facility] Comment on above: Result Comment: PERF ORMED BY:[place] [address] [place] [phone] MEDICAL DIRECTORELI FINK M.D. Performed By: #### L ACTIC ####[address] [address] [facility] Lactic Acid Reflexon 023 Lactic Acid Reflex 2.0 mmol/L Off scale high 0.5-2.2 [facility] Comment on above: Result Comment: Resu lts called at 0052 on 05/29/22PERFORMED BY:[place] [address] [place] [phone] MEDICAL ALTAGRACIA FINK M.D. Performed By: #### L ACTIC RFX ####[address] [address] [facility] Triglycerideson 05-29-2022 Triglyceride [Mass/Vol] 135 mg/dL Normal 35-149 F [facility] Comment on above: Result Comment: TRIG ATP III CLASSIFICATION TRIG less than 150 mg/dL Normal TRIG 150-199 mg/dL Borderline high TRIG 200-500 mg/dL High TRIG greater than 500 mg/dL Very high Standard traceable to the Center for Disease Conrtrol and Prevention (CDC) test method.PERFORMED BY:[place] [address] [place], [place] [phone] MEDICAL DIRECTORJIANLAN SUN M.D. Performed By: #### T RIG ####[facility] [id number] [place] [address] [facility] XR chest 1V portableon 05-29 XR chest 1V portable [facility] Aerobic Cultureon 05-28-2022 Aerobic Culture [facility] Comment on above: Performed By: #### A ERC ####[facility] [id number] [place] [address] [facility] Arterial Blood Gason 023 ABG Base Excess -5.9 mmol/L Low -3.0-3.0 [facility] Comment on above: Performed By: #### A BG ####Point of Care testing, ABG Frac Inspired O2 30 % [facility] Comment on above: Performed By: #### A BG ####Point of Care testing, ABG Oxygen Content 6.2 mmol/L Low 6.6-9.7 [facility] Comment on above: Performed By: #### A BG ####Point of Care testing, ABG Oxygen Saturation 98.7 % Normal 95.0-100.0 [facility] Comment on above: Performed By: #### A BG ####Point of Care testing, ABG PCO2 29.9 mm[Hg] Off scale low 35.0-45.0 [facility] Comment on above: Performed By: #### A BG ####Point of Care testing, ABG PEEP 5 [facility] Comment on above: Performed By: #### A BG ####Point of Care testing, ABG PH 7.40 Normal 7.35-7.45 [facility] Comment on above: Performed By: #### A BG ####Point of Care testing, ABG PO2 152.2 mm[Hg] Off scale high 80.0-100.0 [facility] Comment on above: Performed By: #### A BG ####Point of Care testing, ABG TV 500 mL [facility] Comment on above: Performed By: #### A BG ####Point of Care testing, CO2 [Moles/Vol] 18.9 mmol/L Low 23.0-27.0 [facility] Comment on above: Performed By: #### A BG ####Point of Care testing, HCO3 (Bld) [Moles/Vol] 18.0 mmol/L Low 23.0-29.0 [facility] Comment on above: Performed By: #### A BG ####Point of Care testing, Respiratory Critical Normal [facility] Comment on above: Result Comment: Crit ical Value called on: 05/28/2022 at 04:58PERFORMED BY:[facility] [place], [place] [phone] MEDICAL DIRECTORELI FINK M.D. Performed By: #### A BG ####Point of Care testing, Set Respiratory Rate 20 Normal [facility] Comment on above: Performed By: #### A BG ####Point of Care testing, VBG Draw Site Left Radial [facility] Comment on above: Performed By: #### A BG ####Point of Care testing, Basic Metabolic Panelon 05-17 Anion gap [Moles/Vol] 10.4 mmol/L Normal 6.0-15.0 [facility] Comment on above: Order Comment: LINE DRAW Performed By: #### B MP ####[facility] [place] [address] [facility] Calcium [Mass/Vol] 9.1 mg/dL Normal 8.2-10.2 [facility] Comment on above: Order Comment: LINE DRAW Performed By: #### B MP ####[facility] [id number] [place] [address] [place] Chloride [Moles/Vol] 116 mmol/L High 95-114 [facility] Comment on above: Order Comment: LINE DRAW Performed By: #### B MP ####[facility] [id number] [place] [address] [facility] CO2 [Moles/Vol] 22.5 mmol/L Normal 22.0-30.0 [facility] Comment on above: Order Comment: LINE DRAW Performed By: #### B MP ####[facility] [place] [address] [facility] Creatinine [Mass/Vol] 0.76 mg/dL Normal 0.44-1.03 [facility] Comment on above: Order Comment: LINE DRAW Performed By: #### B MP ####[address] [address] [facility] Creatinine Clr Calc Pharmacy 66.02 [facility] Comment on above: Order Comment: LINE DRAW Result Comment: PERF ORMED BY:[address] [place], [place] [phone] MEDICAL DIRECTORELI FINK M.D. Performed By: #### B MP ####[address] [address] [facility] Estimated GFR ( Martha > 60 [facility] Comment on above: Order Comment: LINE DRAW Result Comment: GFR estimated reference range: According to KDOQI guidelines, <60 ml/min/1.73m2 is sufficient to diagnose a patient with chronic kidney disease. Performed By: #### B MP ####[address] [address] [facility] Estimated GFR (Non- Am > 60 [facility] Comment on above: Order Comment: LINE DRAW Performed By: #### B MP ####[address] [address] [facility] Glucose [Mass/Vol] 189 mg/dL High 70-100 [facility] Comment on above: Order Comment: LINE DRAW Result Comment: [place] om Glucose Reference Range is dependent on time and content of last meal. Glucose of more than 200 mg/dL in a nonstressed, ambulatory subject supports the diagnosis of Diabetes Mellitus. ADA recommended reference range Performed By: #### B MP ####[address] [address] [facility] Potassium [Moles/Vol] 4.9 mmol/L Normal 3.5-5.1 [facility] Comment on above: Order Comment: LINE DRAW Performed By: #### B MP ####[address] [place] [address] [facility] Sodium [Moles/Vol] 144 mmol/L Normal 136-146 [facility] Comment on above: Order Comment: LINE DRAW Performed By: #### B MP ####[place] [id number] [facility] Urea nitrogen [Mass/Vol] 28 mg/dL High 9-23 [facility] Comment on above: Order Comment: LINE DRAW Performed By: #### B MP ####[place] [id number] [facility] Anion gap [Moles/Vol] 13.5 mmol/L Normal 6.0-15.0 [facility] Comment on above: Performed By: #### C BC, MG, PHOS, BMP ####[address] Calcium [Mass/Vol] 8.9 mg/dL Normal 8.2-10.2 [facility] Comment on above: Performed By: #### C BC, MG, PHOS, BMP ####[place] [id number] [facility] Chloride [Moles/Vol] 116 mmol/L High 95-114 [facility] Comment on above: Performed By: #### C BC, MG, PHOS, BMP ####[place] [id number] [facility] CO2 [Moles/Vol] 18.3 mmol/L Low 22.0-30.0 [facility] Comment on above: Performed By: #### C BC, MG, PHOS, BMP ####[place] [id number] [facility] Creatinine [Mass/Vol] 0.94 mg/dL Normal 0.44-1.03 [facility] Comment on above: Performed By: #### C BC, MG, PHOS, BMP ####[place] [id number] [facility] Creatinine Clr Calc Pharmacy 50.28 [facility] Comment on above: Performed By: #### C BC, MG, PHOS, BMP ####[facility] [place] [address] [facility] Estimated GFR ( Martha > 60 [facility] Comment on above: Result Comment: GFR estimated reference range: According to KDOQI guidelines, <60 ml/min/1.73m2 is sufficient to diagnose a patient with chronic kidney disease. Performed By: #### C BC, MG, PHOS, BMP ####[place] [address] [place] [id number] [facility] Estimated GFR (Non- Am > 60 [facility] Comment on above: Performed By: #### C BC, MG, PHOS, BMP ####[place] [address] [place] [id number] [facility] Glucose [Mass/Vol] 257 mg/dL High 70-100 [facility] Comment on above: Result Comment: [place] Glucose Reference Range is dependent on time and content of last meal. Glucose of more than 200 mg/dL in a nonstressed, ambulatory subject supports the diagnosis of Diabetes Mellitus. ADA recommended reference range Performed By: #### C BC, MG, PHOS, BMP ####[place] [address] [place] [address] [facility] Potassium [Moles/Vol] 3.8 mmol/L Normal 3.5-5.1 [facility] Comment on above: Performed By: #### C BC, MG, PHOS, BMP ####[place] [id number] [facility] Sodium [Moles/Vol] 144 mmol/L Normal 136-146 [facility] Comment on above: Performed By: #### C BC, MG, PHOS, BMP ####[place] [address] [place] [id number] [facility] Urea nitrogen [Mass/Vol] 30 mg/dL High 9-23 [facility] Comment on above: Performed By: #### C BC, MG, PHOS, BMP ####[place] [address] [place] [address] [facility] Anion gap [Moles/Vol] 17.1 mmol/L High 6.0-15.0 [facility] Comment on above: Performed By: #### B MP ####[place] [address] [place] [address] [facility] Calcium [Mass/Vol] 9.4 mg/dL Normal 8.2-10.2 [facility] Comment on above: Performed By: #### B MP ####[place] [address] [place] [address] [facility] Chloride [Moles/Vol] 114 mmol/L Normal 95-114 [facility] Comment on above: Performed By: #### B MP ####[address] [address] [facility] CO2 [Moles/Vol] 20.2 mmol/L Low 22.0-30.0 [facility] Comment on above: Performed By: #### B MP ####[address] [address] [facility] Creatinine [Mass/Vol] 1.04 mg/dL High 0.44-1.03 [facility] Comment on above: Performed By: #### B MP ####[address] [address] [facility] Creatinine Clr Calc Pharmacy 45.45 [facility] Comment on above: Result Comment: PERF ORMED BY:[place] [address] [place], [place] [phone] MEDICAL ALTAGRACIA FINK M.D. Performed By: #### B MP ####[address] [address] [facility] Estimated GFR ( Martha > 60 [facility] Comment on above: Result Comment: GFR estimated reference range: According to KDOQI guidelines, <60 ml/min/1.73m2 is sufficient to diagnose a patient with chronic kidney disease. Performed By: #### B MP ####[address] [address] [facility] Estimated GFR (Non- Am 55 [facility] Comment on above: Performed By: #### B MP ####[address] [place] [address] [facility] Glucose [Mass/Vol] 341 mg/dL High 70-100 [facility] Comment on above: Result Comment: [facility] Glucose Reference Range is dependent on time and content of last meal. Glucose of more than 200 mg/dL in a nonstressed, ambulatory subject supports the diagnosis of Diabetes Mellitus. ADA recommended reference range Performed By: #### B MP ####[place] [id number] [facility] Potassium [Moles/Vol] 4.3 mmol/L Normal 3.5-5.1 [facility] Comment on above: Performed By: #### B MP ####[address] Sodium [Moles/Vol] 147 mmol/L High 136-146 [facility] Comment on above: Performed By: #### B MP ####[place] [id number] [facility] Urea nitrogen [Mass/Vol] 36 mg/dL High 9-23 [facility] Comment on above: Performed By: #### B MP ####[place] [id number] [facility] Complete Blood Count Auto Di ffon 05-28-2022 Basophils (Bld) [#/Vol] 0.0 10*3/uL Normal 0.0-0.2 [facility] Comment on above: Result Comment: PERF ORMED BY:[place] [address] [place], [place] [phone] MEDICAL DIRECTORELI FINK M.D. Performed By: #### C BC, MG, PHOS, BMP ####[place] [id number] [place] Basophils/100 WBC (Bld) 0.3 % Normal . F [facility] Comment on above: Performed By: #### C BC, MG, PHOS, BMP ####[place] [id number] [facility] Eosinophils (Bld) [#/Vol] 0.0 10*3/uL Normal 0.0-0.45 [facility] Comment on above: Performed By: #### C BC MG, PHOS, BMP ####[address] Eosinophils/100 WBC (Bld) 0.0 % Normal . [facility] Comment on above: Performed By: #### C BC MG, PHOS, BMP ####[address] Erythrocyte distribution width (RBC) [Ratio] 17.5 % High 11.9-15.3 [facility] Comment on above: Performed By: #### C BC MG, PHOS, BMP ####[address] Hematocrit (Bld) [Volume fraction] 26.2 % Significant change down 34.0-46.4 [facility] Comment on above: Performed By: #### C BC MG, PHOS, BMP ####[address] Hemoglobin (Bld) [Mass/Vol] 8.7 g/dL Low 11.8-15.4 [facility] Comment on above: Result Comment: SPEC IMEN REDRAWN TO CONFIRM RESULTS. THE REDRAWN HGB VALUE IS 9.1. --- 05/28/22 0746 --- HGB previously reported as: 8.7 L g/dL Performed By: #### C BC MG, PHOS, BMP ####[address] Lymphocytes (Bld) [#/Vol] 0.5 10*3/uL Low 1.00-4.8 [facility] Comment on above: Performed By: #### C BC MG, PHOS, BMP ####[address] Lymphocytes/100 WBC (Bld) 4.1 % Normal . [facility] Comment on above: Performed By: #### C BC MG, PHOS, BMP ####[place] [address] MCH (RBC) [Entitic mass] 30.3 pg Normal 24.7-34.3 [facility] Comment on above: Performed By: #### C BC, MG, PHOS, BMP ####[address] MCV (RBC) [Entitic vol] 91.4 fL Normal 80-100 F [facility] Comment on above: Performed By: #### C BC, MG, PHOS, BMP ####[address] Mean Corpuscular HGB Conc 33.1 g/dL Normal 32.0-35.0 [facility] Comment on above: Performed By: #### C BC, MG, PHOS, BMP ####[address] Monocytes (Bld) [#/Vol] 1.0 10*3/uL High 0.0-0.8 [facility] Comment on above: Performed By: #### C BC, MG, PHOS, BMP ####[address] Monocytes/100 WBC (Bld) 7.2 % Normal . F [facility] Comment on above: Performed By: #### C BC, MG, PHOS, BMP ####[address] Neutrophils (Bld) [#/Vol] 11.8 10*3/uL High 1.8-7.7 [facility] Comment on above: Performed By: #### C BC, MG, PHOS, BMP ####[address] Neutrophils/100 WBC (Bld) 88.4 % Normal . [facility] Comment on above: Performed By: #### C BC, MG, PHOS, BMP ####[address] NRBC% 0.0 /100{WBC} Normal 0-0.5 [facility] Comment on above: Performed By: #### C BC, MG, PHOS, BMP ####[place] [id number] [facility] Platelet mean volume (Bld) [Entitic vol] 7.0 fL Normal 6.3-10.7 [facility] Comment on above: Performed By: #### C BC, MG, PHOS, BMP ####[place] [id number] [facility] Platelets (Bld) [#/Vol] 306 10*3/uL Normal 150-450 [facility] Comment on above: Performed By: #### C BC, MG, PHOS, BMP ####[address] RBC (Bld) [#/Vol] 2.86 10*6/uL Low 3.60-5.00 [facility] Comment on above: Performed By: #### C BC, MG, PHOS, BMP ####[place] [id number] [facility] WBC (Bld) [#/Vol] 13.3 10*3/uL High 3.8-11.6 [facility] Comment on above: Performed By: #### C BC, MG, PHOS, BMP ####[place] [id number] [facility] Glucose Poct Glucometerson 0 05-28-2022 Glucose [Mass/Vol] 164 mg/dL Normal [facility] Comment on above: Result Comment: [facility] Glucose Reference Range is dependent on time and content of last meal. Glucose of more than 200 mg/dL in a nonstressed, ambulatory subject supports the diagnosis of Diabetes Mellitus.PERFORMED BY:[address] [place], [place] [phone] MEDICAL DIRECTORELI FINK M.D. Performed By: #### G PILY ####Point of Care testing, Glucose [Mass/Vol] 256 mg/dL Normal [facility] Comment on above: Result Comment: [facility] Glucose Reference Range is dependent on time and content of last meal. Glucose of more than 200 mg/dL in a nonstressed, ambulatory subject supports the diagnosis of Diabetes Mellitus.PERFORMED BY:[place] [address] [address]ANI[address]CarmineGiancarloMI[place], [place] [phone] MEDICAL DIRECTORELI FINK M.D. Performed By: #### G LULS ####Point of Care testing, Glucose [Mass/Vol] 106 mg/dL Normal [facility] Comment on above: Result Comment: [facility] Glucose Reference Range is dependent on time and content of last meal. Glucose of more than 200 mg/dL in a nonstressed, ambulatory subject supports the diagnosis of Diabetes Mellitus.PERFORMED BY:[address] DANIELCarmineGiancarloMISTY, [place] [phone] MEDICAL DIRECTORELI FINK M.D. Performed By: #### G LULS ####Point of Care testing, Glucose [Mass/Vol] 123 mg/dL Normal [facility] Comment on above: Result Comment: [facility] Glucose Reference Range is dependent on time and content of last meal. Glucose of more than 200 mg/dL in a nonstressed, ambulatory subject supports the diagnosis of Diabetes Mellitus.PERFORMED BY:[address] SANDOVALGiancarloMISTYMECHANICSV[place], [place] [phone] MEDICAL ALTAGRACIA FINK M.D. Performed By: #### G LULS ####Point of Care testing, Glucose [Mass/Vol] 178 mg/dL Normal [facility] Comment on above: Result Comment: [facility] Glucose Reference Range is dependent on time and content of last meal. Glucose of more than 200 mg/dL in a nonstressed, ambulatory subject supports the diagnosis of Diabetes Mellitus.PERFORMED BY:[address] SANDOVALGiancarloMISTYMECHANICSV[place], [place] [phone] MEDICAL ALTAGRACIA FINK M.D. Performed By: #### G LULS ####Point of Care testing, Glucose [Mass/Vol] 246 mg/dL Normal [facility] Comment on above: Result Comment: [facility] Glucose Reference Range is dependent on time and content of last meal. Glucose of more than 200 mg/dL in a nonstressed, ambulatory subject supports the diagnosis of Diabetes Mellitus.PERFORMED BY:[place] [address] [address] [place], [place] [phone] MEDICAL ALTAGRACIA FINK M.D. Performed By: #### G LULS ####Point of Care testing, Commemt1 Glu2: Cleaned Meter [facility] Comment on above: Result Comment: PERF ORMED BY:[place] [address] [address] [place], [place] [phone] MEDICAL DIRECTORELI FINK M.D. Performed By: #### G LULS ####Point of Care testing, Glucose [Mass/Vol] 231 mg/dL Normal [facility] Comment on above: Result Comment: [facility] Glucose Reference Range is dependent on time and content of last meal. Glucose of more than 200 mg/dL in a nonstressed, ambulatory subject supports the diagnosis of Diabetes Mellitus. Performed By: #### G LULS ####Point of Care testing, Commemt1 Glu2: Cleaned Meter [facility] Comment on above: Result Comment: PERF ORMED BY:[place] [address] [address] [place], [place] [phone] MEDICAL ALTAGRACIA FINK M.D. Performed By: #### G LULS ####Point of Care testing, Glucose [Mass/Vol] 240 mg/dL Normal [facility] Comment on above: Result Comment: [facility] Glucose Reference Range is dependent on time and content of last meal. Glucose of more than 200 mg/dL in a nonstressed, ambulatory subject supports the diagnosis of Diabetes Mellitus. Performed By: #### G LULS ####Point of Care testing, Commemt1 Glu2: Cleaned Meter [facility] Comment on above: Result Comment: PERF ORMED BY:[address] [place], [place] [phone] MEDICAL ALTAGRACIA FINK M.D. Performed By: #### G LULS ####Point of Care testing, Glucose [Mass/Vol] 221 mg/dL Normal [facility] Comment on above: Result Comment: [place] [facility] Glucose Reference Range is dependent on time and content of last meal. Glucose of more than 200 mg/dL in a nonstressed, ambulatory subject supports the diagnosis of Diabetes Mellitus. Performed By: #### G LULS ####Point of Care testing, Commemt1 Glu2: Cleaned Meter [facility] Comment on above: Result Comment: PERF ORMED BY:[place] [address] [place], [place] [phone] MEDICAL DIRECTORELI FINK M.D. Performed By: #### G LULS ####Point of Care testing, Glucose [Mass/Vol] 217 mg/dL Normal [facility] Comment on above: Result Comment: [place] [facility] Glucose Reference Range is dependent on time and content of last meal. Glucose of more than 200 mg/dL in a nonstressed, ambulatory subject supports the diagnosis of Diabetes Mellitus. Performed By: #### G LULS ####Point of Care testing, Commemt1 Glu2: Cleaned Meter [facility] Comment on above: Result Comment: PERF ORMED BY:[place] [address] [address] [place], [place] [phone] MEDICAL ALTAGRACIA FINK M.D. Performed By: #### G LULS ####Point of Care testing, Glucose [Mass/Vol] 300 mg/dL Normal [facility] Comment on above: Result Comment: [place] [facility] Glucose Reference Range is dependent on time and content of last meal. Glucose of more than 200 mg/dL in a nonstressed, ambulatory subject supports the diagnosis of Diabetes Mellitus. Performed By: #### G LULS ####Point of Care testing, Commemt1 Glu2: Cleaned Meter [facility] Comment on above: Result Comment: PERF ORMED BY:[place] [address] [address] [place], [place] [phone] MEDICAL DIRECTORELI FINK M.D. Performed By: #### G LULS ####Point of Care testing, Glucose [Mass/Vol] 286 mg/dL Normal [facility] Comment on above: Result Comment: [place] [facility] Glucose Reference Range is dependent on time and content of last meal. Glucose of more than 200 mg/dL in a nonstressed, ambulatory subject supports the diagnosis of Diabetes Mellitus. Performed By: #### G LULS ####Point of Care testing, Commemt1 Glu2: Cleaned Meter [facility] Comment on above: Result Comment: PERF ORMED BY:[place] [address] [address] [place], [place] [phone] MEDICAL DIRECTORELI FINK M.D. Performed By: #### G LULS ####Point of Care testing, Glucose [Mass/Vol] 341 mg/dL Normal [facility] Comment on above: Result Comment: [place] [facility] Glucose Reference Range is dependent on time and content of last meal. Glucose of more than 200 mg/dL in a nonstressed, ambulatory subject supports the diagnosis of Diabetes Mellitus. Performed By: #### G LULS ####Point of Care testing, Commemt1 Glu2: Cleaned Meter [facility] Comment on above: Result Comment: PERF ORMED BY:[place] [address] [address] [place], [place] [phone] MEDICAL DIRECTORELI FINK M.D. Performed By: #### G LULS ####Point of Care testing, Glucose [Mass/Vol] 294 mg/dL Normal [facility] Comment on above: Result Comment: [place] Glucose Reference Range is dependent on time and content of last meal. Glucose of more than 200 mg/dL in a nonstressed, ambulatory subject supports the diagnosis of Diabetes Mellitus. Performed By: #### G LULS ####Point of Care testing, Commemt1 Glu2: Cleaned Meter [facility] Comment on above: Result Comment: PERF ORMED BY:[place] [address] [address] [place], [place] [phone] MEDICAL DIRECTORELI FINK M.D. Performed By: #### G LULS ####Point of Care testing, Glucose [Mass/Vol] 404 mg/dL Off scale high [facility] Comment on above: Result Comment: [facility] Glucose Reference Range is dependent on time and content of last meal. Glucose of more than 200 mg/dL in a nonstressed, ambulatory subject supports the diagnosis of Diabetes Mellitus. Performed By: #### G LULS ####Point of Care testing, Lactic Acidon 05-28-2022 Lactate [Moles/Vol] 2.6 mmol/L Off scale high 0.5-2.2 F [facility] Comment on above: Result Comment: Crit ical value result called at 1841 on 05/28/22PERFORMED BY:[address] [place], [place] [phone] MEDICAL DIRECTORELI FINK M.D. Performed By: #### L ACTIC ####[address] [address] [facility] Lactate [Moles/Vol] 7.7 mmol/L Off scale high 0.5-2.2 [facility] Comment on above: Result Comment: Resu lts called at 0604 on 05/28/22PERFORMED BY:[address] [place], [place] [phone] MEDICAL DIRECTORELI FINK M.D. Performed By: #### L ACTIC ####[address] [address] [facility] Lactic Acid Reflexon 023 Lactic Acid Reflex 3.8 mmol/L Off scale high 0.5-2.2 [facility] Comment on above: Result Comment: Resu lts called at 0857 on 05/28/22PERFORMED BY:[address] [place], [place] [phone] MEDICAL DIRECTORELI FINK M.D. Performed By: #### L ACTIC RFX ####[address] [address] [facility] Lactic Acid Reflex 8.5 mmol/L Off scale high 0.5-2.2 [facility] Comment on above: Result Comment: Resu lts called at 0110 on 05/28/22PERFORMED BY:[place] [address] [address] [place], [place] [phone] MEDICAL DIRECTORELI FINK M.D. Performed By: #### L ACTIC RFX ####[address] [address] [facility] Magnesiumon 05-28-2022 Magnesium [Mass/Vol] 1.9 mg/dL Normal 1.6-2.6 [facility] Comment on above: Result Comment: PERF ORMED BY:[place] [address] [address] [place], [place] [phone] MEDICAL DIRECTORELI FINK M.D. Performed By: #### C BC, MG, PHOS, BMP ####[address] [address] [facility] Phosphoruson 05-28-2022 Phosphate [Mass/Vol] 1.9 mg/dL Low 2.5-4.6 [facility] Comment on above: Performed By: #### C BC, MG, PHOS, BMP ####[address] [address] [facility] Troponin I High Sensitivityo n 05-28-2022 Troponin I High Sensitivity 544 pg/mL Off scale high 0-15 [facility] Comment on above: Result Comment: Crit ical value result called at 1535 on 05/28/22PERFORMED BY:[place] [address] [place], [place] [phone] MEDICAL DIRECTORELI FINK M.D. Performed By: #### H S TROP ####[address] [address] [facility] Troponin I High Sensitivity 658 pg/mL Off scale high 0-15 [facility] Comment on above: Result Comment: Resu lts called at 1003 on 05/28/22PERFORMED BY:[place] [address] [address] S[place]OVALG[place]carloMISTYMECHAN[place], [place] [phone] MEDICAL DIRECTORELI FINK M.D. Performed By: #### H S TROP ####[address] [address] [facility] Vancomycin,Randomon 05-28-19 Vancomycin,Random 4.0 ug/mL Low 5.0-20.0 [facility] Comment on above: Order Comment: Date of last dose?: 20220527 Time of last dose?: 1800 Result Comment: Last dose: -PERFORMED BY:[place] [address] [address] SANDOVALGianacrloMISTYMECHAN[place], [place] [phone] MEDICAL DIRECTORELI FINK M.D. Performed By: #### V ANCR ####[address] [address] [facility] XR chest 1V portableon 05-28 XR chest 1V portable Normal [facility] A1C with Estimated Average G luon 05-27-2022 Glucose [Mass/Vol] 237 mg/dL Normal [facility] Comment on above: Result Comment: PERF ORMED BY:[place] [address] [address] S[place]OVALG[place]carloMI[place]ME[place], [place] [phone] MEDICAL DIRECTORELI FINK M.D. Performed By: #### A 1C [facility] eA ####[address] [address] [facility] HbA1c (Bld) [Mass fraction] 9.9 % High 4.3-5.6 [facility] Comment on above: Result Comment: Incr eased risk for diabetes: 5.7 - 6.4 diabetes: >6.4 glycemic control for adults with diabetes: <7.0 Performed By: #### A 1C WTH eA ####[address] [address] [facility] ABO/Rh Retypeon 05-27-2022 ABO/RH Recheck Result Positive Normal [facility] Comment on above: Order Comment: DRAW ABO WITH SHAWNA OLIVARES RN Result Comment: PERF ORMED BY:[facility] [place], [place] [phone] MEDICAL DIRECTORELI FINK M.D. Arterial Blood Gason 023 ABG Base Excess -15.2 mmol/L Low -3.0-3.0 [facility] Comment on above: Performed By: #### A BG ####Point of Care testing, ABG Frac Inspired O2 30% [facility] Comment on above: Performed By: #### A BG ####Point of Care testing, ABG Oxygen Content 8.0 mmol/L Normal 6.6-9.7 [facility] Comment on above: Performed By: #### A BG ####Point of Care testing, ABG Oxygen Saturation 98.9 % Normal 95.0-100.0 [facility] Comment on above: Performed By: #### A BG ####Point of Care testing, ABG PCO2 21.7 mm[Hg] Off scale low 35.0-45.0 [facility] Comment on above: Performed By: #### A BG ####Point of Care testing, ABG PEEP 5 [facility] Comment on above: Performed By: #### A BG ####Point of Care testing, ABG PH 7.27 Low 7.35-7.45 [facility] Comment on above: Performed By: #### A BG ####Point of Care testing, ABG PO2 156.8 mm[Hg] Off scale high 80.0-100.0 [facility] Comment on above: Performed By: #### A BG ####Point of Care testing, ABG TV 500 mL [facility] Comment on above: Performed By: #### A BG ####Point of Care testing, CO2 [Moles/Vol] 10.4 mmol/L Low 23.0-27.0 [facility] Comment on above: Performed By: #### A BG ####Point of Care testing, HCO3 (Bld) [Moles/Vol] 9.7 mmol/L Low 23.0-29.0 [facility] Comment on above: Performed By: #### A BG ####Point of Care testing, Respiratory Critical Normal [facility] Comment on above: Result Comment: Crit ical Value called on: 05/27/2022 at 15:52PERFORMED BY:[facility] DANIELCramineGiancarloMISTYMECHANICSV[place], [place] [phone] MEDICAL DIRECTORELI FINK M.D. Performed By: #### A BG ####Point of Care testing, Set Respiratory Rate 20 [facility] Comment on above: Performed By: #### A BG ####Point of Care testing, VBG Draw Site Right Radial [facility] Comment on above: Performed By: #### A BG ####Point of Care testing, Ventilator Mode AC [facility] Comment on above: Performed By: #### A BG ####Point of Care testing, BLOOD GASES BTYon 05-27-2022 02 MODE VENTILATOR Normal [facility] Comment on above: Performed By: #### A BG ####[facility] [address] [place] [address]Dr. Grace Best ALLENS TEST Positive [facility] Comment on above: Performed By: #### A BG ####[facility] Hz[address]pe[address] [place] [address]Dr. Grace Best Base excess Calc (Bld) [Moles/Vol] -18.47393 mmol/L Critically low -2.0-2.0 [facility] Comment on above: Performed By: #### A BG ####[facility] [address] [place] [address]Dr. Grace Best BIPAP PRESSURE [facility] Comment on above: Performed By: #### A BG ####[facility] A[address] [place] [address]Dr. Grace Best CPAP [facility] Comment on above: Performed By: #### A BG ####[facility] Atpxelfxbj[address] [place] [address]Dr. Grace Best FIO2 0.21 % Normal [facility] Comment on above: Performed By: #### A BG ####[facility] [address] [place] [address]Dr. Grace Best HCO3 (Bld) [Moles/Vol] 10.7 mmol/L Critically low 22.0-26. 0 [facility] Comment on above: Performed By: #### A BG ####[facility] [address] [place], [place] [address]Dr. Grace Best LPM Normal [facility] Comment on above: Performed By: #### A BG ####[facility] [address] [place], [place] [address]Dr. Grace Best MINUTE VOLUME 12 L [facility] Comment on above: Performed By: #### A BG ####[facility] [address] [place], [place] [address]Dr. Grace Best Oxygen (Bld) [Partial pressure] 108.0 mm[Hg] Critically high 80.0-100.0 [facility] Comment on above: Performed By: #### A BG ####[facility] [address] [place], [place] [address]Dr. Grace Best Oxygen saturation in Blood 97.0 % Normal 95.0-100.0 [facility] Comment on above: Performed By: #### A BG ####[facility] Yu[address]rs[address] [place], [place] [address]Dr. Grace Best PCO2 30.3 mmHg Critically low 35.0-45.0 [facility] Comment on above: Performed By: #### A BG ####[facility] [address] [place] [address]Dr. Grace Best PEEP 5 [facility] Comment on above: Performed By: #### A BG ####[facility] [address] [place], [place] [address]Dr. Grace Best pH (Bld) 7.157 [pH] Critically low 7.350-7.450 [facility] Comment on above: Performed By: #### A BG ####[facility] V[address]wrhe[address] [place] [address]Dr. Grace Best PIP Normal [facility] Comment on above: Performed By: #### A BG ####[facility] [address] [place] [address]Dr. Grace Bset PS Normal [facility] Comment on above: Performed By: #### A BG ####[facility] Hz[address]xd[address] [place] [address]Dr. Grace Best PUNCTURE SITE LR Normal [facility] Comment on above: Performed By: #### A BG ####[facility] [address] [place], [place] [address]Dr. Grace Best RATE 20 bpm Normal [facility] Comment on above: Performed By: #### A BG ####[facility] [address]ls[address] [place], [place] [address]Dr. Grace Best VENT MODE AC/VC Normal [facility] Comment on above: Performed By: #### A BG ####[facility] [address]we[address] [place], [place] [address]Dr. Grace Best VT 450 ML Normal [facility] Comment on above: Performed By: #### A BG ####[facility] Xvjmlksvgu[address] [place], [place] [address]Dr. Grace Best 02 MODE VENTILATOR Normal [facility] Comment on above: Performed By: #### A BG ####[facility] Vkxd[address]crfmt[address] [place], [place] [address]Dr. Grace Best ALLENS TEST Positive Normal [facility] Comment on above: Performed By: #### A BG ####[facility] Knvlptz[address] [place], [place] [address]Dr. Grace Best Base excess Calc (Bld) [Moles/Vol] -28.64579 mmol/L Critically low -2.0-2.0 [facility] Comment on above: Performed By: #### A BG ####[facility] Efbfilxuen[address] [place], [place] [address]Dr. Grace Best BIPAP PRESSURE Normal [facility] Comment on above: Performed By: #### A BG ####[facility] [address]dtuheou[address] [place] [address]Dr. Roxannega Best CPAP Normal [facility] Comment on above: Performed By: #### A BG ####[facility] [address]ie[address] [place] [address]Dr. Roxannega Best FIO2 40.00 % Normal [facility] Comment on above: Performed By: #### A BG ####[facility] Eduivvsfyj[address] [place], [place] [address]Dr. Grace Best HCO3 (Bld) [Moles/Vol] 5.9 mmol/L Critically low 22.0-26.0 [facility] Comment on above: Performed By: #### A BG ####[facility] Cwmus[address] [place], [place] [address]Dr. Grace Best LPM Normal [facility] Comment on above: Performed By: #### A BG ####[facility] [address]zz[address]ws[address] [place], [place] [address]Dr. Grace Best MINUTE VOLUME Normal [facility] Comment on above: Performed By: #### A BG ####[facility] Tkvqqvtxnu[address] [place], [place] [address]Dr. Grace Best Oxygen (Bld) [Partial pressure] 131.0 mm[Hg] Critically high 80.0-100.0 [facility] Comment on above: Performed By: #### A BG ####[facility] Fgzma[address]zyd[address] [place], [place] [address]Dr. Grace Best Oxygen saturation in Blood 95.3 % Normal 95.0-100.0 [facility] Comment on above: Performed By: #### A BG ####[facility] [address]is[address] [place], [place] [address]Dr. Grace Best PCO2 36.1 mmHg Normal 35.0-45.0 [facility] Comment on above: Performed By: #### A BG ####[facility] [address] [place], [place] [address]Dr. Grace Best PEEP 5 Normal [facility] Comment on above: Performed By: #### A BG ####[facility] [address] [place] [address]Dr. Grace Best pH (Bld) 6.823 [pH] Critically low 7.350-7.450 [facility] Comment on above: Performed By: #### A BG ####[facility] [address] [place] [address]Dr. Grace Best PIP Normal [facility] Comment on above: Performed By: #### A BG ####[facility] [address] [place] [address]Dr. Grace Best PS Normal [facility] Comment on above: Performed By: #### A BG ####[facility] Durfuyaq[address] [place] [address]Dr. Grace Best PUNCTURE SITE LR Normal [facility] Comment on above: Performed By: #### A BG ####[facility] Dxlptrvhqx[address] [place] [address]Dr. Grace Best RATE 16 bpm Normal [facility] Comment on above: Performed By: #### A BG ####[facility] Mukvchaoeg3733 [place] [address]Dr. Grace Best VENT MODE AC/VC [facility] Comment on above: Performed By: #### A BG ####[facility] Zmshrrjykb2533 [place] [address]Dr. Grace Best [place] 400 ML [facility] Comment on above: Performed By: #### A BG ####[facility] Bmckdxdtph4173 [place] [address]Dr. Grace Best BNPon 05-27-2022 Natriuretic peptide B (Bld) [Mass/Vol] 611.0 pg/mL Normal <=900.0 [facility] Comment on above: Performed By: #### B MP, CMADM, TSH, BNP ####[facility] Bcgrslpnei9660 [place] [address]Dr. Grace Best Basic Metabolic Panelon 05-17 Anion gap [Moles/Vol] 20.7 mmol/L High 6.0-15.0 [facility] Comment on above: Performed By: #### B MP ####[address] [place] [address] [facility] Calcium [Mass/Vol] 9.3 mg/dL Normal 8.2-10.2 [facility] Comment on above: Performed By: #### B MP ####[address] [place] [address] [facility] Chloride [Moles/Vol] 112 mmol/L Normal 95-114 [facility] Comment on above: Performed By: #### B MP ####[address] [address] [facility] CO2 [Moles/Vol] 18.0 mmol/L Low 22.0-30.0 [facility] Comment on above: Performed By: #### B MP ####[address] [address] [facility] Creatinine [Mass/Vol] 1.11 mg/dL High 0.44-1.03 [facility] Comment on above: Performed By: #### B MP ####[address] [address] [facility] Creatinine Clr Calc Pharmacy 42.58 [facility] Comment on above: Result Comment: PERF ORMED BY:[place] [address] [address] [place]ST[place], [place] [phone] MEDICAL ALTAGRACIA FINK M.D. Performed By: #### B MP ####[address] [address] [facility] Estimated GFR ( Martha > 60 [facility] Comment on above: Result Comment: GFR estimated reference range: According to KDOQI guidelines, <60 ml/min/1.73m2 is sufficient to diagnose a patient with chronic kidney disease. Performed By: #### B MP ####[address] [address] [facility] Estimated GFR (Non- Am 51 [facility] Comment on above: Performed By: #### B MP ####[address] [address] [facility] Glucose [Mass/Vol] 337 mg/dL Significant change up 70-100 [facility] Comment on above: Result Comment: [place] Glucose Reference Range is dependent on time and content of last meal. Glucose of more than 200 mg/dL in a nonstressed, ambulatory subject supports the diagnosis of Diabetes Mellitus. ADA recommended reference range Performed By: #### B MP ####[address] [address] [facility] Potassium [Moles/Vol] 3.7 mmol/L Normal 3.5-5.1 [facility] Comment on above: Performed By: #### B MP ####[place] [id number] [facility] Sodium [Moles/Vol] 147 mmol/L High 136-146 [facility] Comment on above: Performed By: #### B MP ####[place] [id number] [facility] Urea nitrogen [Mass/Vol] 36 mg/dL High 9-23 [facility] Comment on above: Performed By: #### B MP ####[address] [address] [facility] Blood Cultureon 05-27-2022 Bacteria identified Cx Nom (Bld) NO GROWTH 5 DAYS PERFORMED BY: [facility] [address] [place] [id number] PATHOLOGIST SHEET [employer] WORKER ELI FINK M.D. [facility] Comment on above: Performed By: #### C UBLD ####[place] [id number] [facility] Bacteria identified Cx Nom (Bld) NO GROWTH 5 DAYS PERFORMED BY: [facility] [address] [place] [address] PATHOLOGIST SHEET [employer] WORKER ELI FINK M.D. [facility] Comment on above: Performed By: #### C UBLD ####[address] [address] [facility] CARDIAC ALY ADMITon 023 CK [Catalytic activity/Vol] 98 U/L Normal 26-192 [facility] Comment on above: Performed By: #### B MP, CMADM, TSH, BNP ####[facility] Wpfffewwcd5[address] [place] [address]Dr. Grace Best CK.MB [Mass/Vol] 1.93 ng/mL Normal <=3.60 [facility] Comment on above: Performed By: #### B MP, CMADM, TSH, BNP ####[facility] Dazejznnrr[address] [place] [address]Dr. Grace Best HSTROP 626.3 pg/mL Critically high 4.0-51.3 [facility] Comment on above: Result Comment: CUT- OFF POINTS HAVE BEEN ESTABLISHED BASED ON THE FOURTH UNIVERSAL DEFINITIONS OF MYOCARDIALINFARCTION. THE UPPER REFERENCE LIMIT (URL) OF TROPONIN, DEFINED THE 99TH PERCENTILE OFcTnI DISTRIBUTION IN A REFERENCE POPULATION, HAS BEEN CONFIRMED THE DECISION THRESHOLDFOR [place] DIAGNOSIS. Performed By: #### B MP, CMADM, TSH, BNP ####[facility] Ueh[address]rlxueo[address] [place] [address]Dr. Grace Best CORRY 112 ng/mL Critically high 9-82 [facility] Comment on above: Performed By: #### B MP, CMADM, TSH, BNP ####[facility] Hpggjkngjt5[address] [place] [address]Dr. Roxannega Best CBC AUTO DIFFon 05-27-2022 BASO # 0.1 103/ul Normal 0.0-0.1 [facility] Comment on above: Performed By: #### C BC ####[facility] Aeglxreqdg1055 [place] [address]Dr. Grace Best Basophils/100 WBC (Bld) 0.5 % Normal 0.2-2.0 [facility] Comment on above: Performed By: #### C BC ####[facility] Dbvbtdrqpc[address] [place], [place] [address]Dr. Grace Best EO # 0.0 103/ul Normal 0.0-0.7 [facility] Comment on above: Performed By: #### C BC ####[facility] [address] [place], [place] [address]Dr. Grace Best Eosinophils/100 WBC (Bld) 0.1 % Critically low 0.9-7.0 [facility] Comment on above: Performed By: #### C BC ####[facility] Xhghpeceka62[address] [place] [address]Dr. Grace Best Erythrocyte distribution width (RBC) [Ratio] 17.0 % Critically high 11.0-15.0 [facility] Comment on above: Performed By: #### C BC ####[facility] Klzljonjfj01[address] [place] [address]Dr. Grace Best Hematocrit (Bld) [Volume fraction] 45.6 % Normal 36.0-48.0 [facility] Comment on above: Performed By: #### C BC ####[facility] Ndklpeykhv5745 [place] [address]Dr. Grace Best Hemoglobin (Bld) [Mass/Vol] 12.9 g/dL Normal 12.0-16.0 [facility] Comment on above: Performed By: #### C BC ####[facility] [address] [place], [place] [address]Dr. Grace Best IG # 0.43 10e3/ul Critically high 0.00-0.03 [facility] Comment on above: Performed By: #### C BC ####[facility] Rdhpqhxjzl1102 [place] [address]Dr. Grace Best IG % 2.4 % Critically high 0.0-0.5 [facility] Comment on above: Performed By: #### C BC ####[facility] Qqzmobufjl1729 [place] [address]Dr. Grace Best LYMPH # 2.9 103/ul Normal 1.2-3.8 [facility] Comment on above: Performed By: #### C BC ####[facility] [address] [place], [place] [address]Dr. Grace Best Lymphocytes/100 WBC (Bld) 16.1 % Critically low 20.5-60.0 [facility] Comment on above: Performed By: #### C BC ####[facility] Xeajictmhs[address] [place] [id number]. Grace Best MANUAL DIFF REQ NO Normal [facility] Comment on above: Performed By: #### C BC ####[facility] Dppuchknve4812 [place] [address]Dr. Grace Nasir MCH (RBC) [Entitic mass] 30.4 pg Normal 26.7-34.0 [facility] Comment on above: Performed By: #### C BC ####[facility] Nkhgdsajzw1400 [place] [address]Dr. Grace Best MCHC (RBC) [Mass/Vol] 28.3 g/dL Critically low 29.9-35.2 [facility] Comment on above: Result Comment: 1+ h ypochromasia Performed By: #### C BC ####[facility] Rmvnvenzjl9068 [place] [address]Dr. Grace Best MCV (RBC) [Entitic vol] 107.5 fL Critically high 81.0-99 .0 [facility] Comment on above: Result Comment: 1+ m acrocytosis Performed By: #### C BC ####[facility] [address] [place], [place] [address]Dr. Grace Best MONO # 0.6 103/ul Normal 0.3-0.8 [facility] Comment on above: Performed By: #### C BC ####[facility] Ptfxafxchv5078 [place] [address]Dr. Grace Best Monocytes/100 WBC (Bld) 3.1 % Normal 1.7-12.0 [facility] Comment on above: Performed By: #### C BC ####[facility] Htrsvvfvfk88[address] [place] [address]Dr. Grace Best NEUT # 14.1 103/ul Critically high 1.4-6.5 [facility] Comment on above: Performed By: #### C BC ####[facility] Oppkvunlrk[address] [place] [address]Dr. Grace Best Neutrophils/100 WBC (Bld) 77.8 % Critically high 43.0-75.0 [facility] Comment on above: Performed By: #### C BC ####[facility] Nqyzjrxqcx0848 [place], [place] [address]Rm. Grace Best Platelet mean volume (Bld) [Entitic vol] 9.6 fL Normal 9.5-13.5 [facility] Comment on above: Performed By: #### C BC ####[facility] Btfcgodydv3884 [place], [place] [address]Cu. Grace Best PLT 607 103/ul Critically high 150-450 [facility] Comment on above: Performed By: #### C BC ####[facility] Qdwuuuctas1652 [place], [place] [address]Ah. Grace Best RBC 4.24 106/ul Normal 4.20-5.40 [facility] Comment on above: Performed By: #### C BC ####[facility] Utsygotsqo0565 [place], [place] [address]Od. Grace Best WBC 18.2 103/ul Critically high 4.0-11.0 [facility] Comment on above: Performed By: #### C BC ####[facility] Jluuaqvkvo2428 [place], [place] [address]Sm. Grace Best CT CSPINE WO CONon 3 CT CSPINE WO CON Normal [facility] CT STROKE HEAD WOon 05-27-[address] STROKE HEAD WO Normal The [facility] CULTURE BLOODon 05-27-2022 Microscopic examination of blood, culture Culture Observations: NO GROWTH AT 5 DAYS. Normal [facility] Comment on above: Performed By: #### B LDCX2 ####[facility] Angmuvddpl8744 [place], [place] [address]Bh. Grace Best Performed By: #### B LDCX1 ####[facility] L[address]jtthl60[address] [place] [id number]. Grace Best Coagulation Profileon 2022 aPTT Coag (Bld) [Time] 23.8 s Low 25.1-36.5 [facility] Comment on above: Result Comment: PERF ORMED BY:[facility] [place] [place], [place] [phone] MEDICAL DIRECTORELI FINK M.D. Performed By: #### M G, HCGQUAL, CBC, LACTIC, HEPATIC, CMP, PP ####[place] [id number] [facility] INR Coag (PPP) [Relative time] 0.9 {INR} Normal [facility] Comment on above: Result Comment: INR Therapeutic Range A) Pre- and Peroperative OAT started two weeks before surgery. NOT HIP SURGERY: 1.5 - 2.5 HIP SURGERY: 2 - 3 B) Primary and secondary prevention of venous THROMBOSIS: 2 - 3 C) Active venous thrombosis, pulmonary embolism and prevention of recurrent venous thrombosis: 2 - 3 D) Prevention of arterial thromboembolism including patients with mechanical heart valves: 3 - 4.5 Performed By: #### M G, HCGQUAL, CBC, LACTIC, HEPATIC, CMP, PP ####[address] Complete Blood Count Auto Di ffon 05-27-2022 Basophils (Bld) [#/Vol] 0.0 10*3/uL Normal 0.0-0.2 [facility] Comment on above: Result Comment: PERF ORMED BY:[place] [address] [address] [place], [place] [phone] MEDICAL DIRECTORELI FINK M.D. Performed By: #### M G, HCGQUAL, CBC, LACTIC, HEPATIC, CMP, PP ####[address] Basophils/100 WBC (Bld) 0.2 % Normal . F [facility] Comment on above: Performed By: #### M G, HCGQUAL, CBC, LACTIC, HEPATIC, CMP, PP ####[address] Eosinophils (Bld) [#/Vol] 0.0 10*3/uL Normal 0.0-0.45 [facility] Comment on above: Performed By: #### M G, HCGQUAL, CBC, LACTIC, HEPATIC, CMP, PP ####[address] Eosinophils/100 WBC (Bld) 0.0 % Normal . [facility] Comment on above: Performed By: #### M G, HCGQUAL, CBC, LACTIC, HEPATIC, CMP, PP ####[address] Erythrocyte distribution width (RBC) [Ratio] 17.4 % High 11.9-15.3 [facility] Comment on above: Performed By: #### M G, HCGQUAL, CBC, LACTIC, HEPATIC, CMP, PP ####[address] Hematocrit (Bld) [Volume fraction] 37.0 % Normal 34.0-46.4 [facility] Comment on above: Performed By: #### M G, HCGQUAL, CBC, LACTIC, HEPATIC, CMP, PP ####[address] Hemoglobin (Bld) [Mass/Vol] 11.8 g/dL Normal 11.8-15.4 [facility] Comment on above: Performed By: #### M G, HCGQUAL, CBC, LACTIC, HEPATIC, CMP, PP ####[address] Lymphocytes (Bld) [#/Vol] 0.4 10*3/uL Low 1.00-4.8 [facility] Comment on above: Performed By: #### M G, HCGQUAL, CBC, LACTIC, HEPATIC, CMP, PP ####[address] Lymphocytes/100 WBC (Bld) 2.1 % Normal . [facility] Comment on above: Performed By: #### M G, HCGQUAL, CBC, LACTIC, HEPATIC, CMP, PP ####[address] MCH (RBC) [Entitic mass] 29.6 pg Normal 24.7-34.3 [facility] Comment on above: Performed By: #### M G, HCGQUAL, CBC, LACTIC, HEPATIC, CMP, PP ####[place] [id number] [facility] MCV (RBC) [Entitic vol] 93.2 fL Normal 80-100 F [facility] Comment on above: Performed By: #### M G, HCGQUAL, CBC, LACTIC, HEPATIC, CMP, PP ####[address] Mean Corpuscular HGB Conc 31.8 g/dL Low 32.0-35.0 [facility] Comment on above: Performed By: #### M G, HCGQUAL, CBC, LACTIC, HEPATIC, CMP, PP ####[address] Monocytes (Bld) [#/Vol] 0.7 10*3/uL Normal 0.0-0.8 [facility] Comment on above: Performed By: #### M G, HCGQUAL, CBC, LACTIC, HEPATIC, CMP, PP ####[address] Monocytes/100 WBC (Bld) 3.5 % Normal . F [facility] Comment on above: Performed By: #### M G, HCGQUAL, CBC, LACTIC, HEPATIC, CMP, PP ####[address] Neutrophils (Bld) [#/Vol] 19.0 10*3/uL High 1.8-7.7 [facility] Comment on above: Performed By: #### M G, HCGQUAL, CBC, LACTIC, HEPATIC, CMP, PP ####[place] [id number] [facility] Neutrophils/100 WBC (Bld) 94.2 % Normal . [facility] Comment on above: Performed By: #### M G, HCGQUAL, CBC, LACTIC, HEPATIC, CMP, PP ####[place] [id number] [facility] NRBC% 0.2 /100{WBC} Normal 0-0.5 [facility] Comment on above: Performed By: #### M G, HCGQUAL, CBC, LACTIC, HEPATIC, CMP, PP ####[address] Platelet mean volume (Bld) [Entitic vol] 7.0 fL Normal 6.3-10.7 [facility] Comment on above: Performed By: #### M G, HCGQUAL, CBC, LACTIC, HEPATIC, CMP, PP ####[address] Platelets (Bld) [#/Vol] 521 10*3/uL High 150-450 [facility] Comment on above: Performed By: #### M G, HCGQUAL, CBC, LACTIC, HEPATIC, CMP, PP ####[address] RBC (Bld) [#/Vol] 3.97 10*6/uL Normal 3.60-5.00 [facility] Comment on above: Performed By: #### M G, HCGQUAL, CBC, LACTIC, HEPATIC, CMP, PP ####[address] WBC (Bld) [#/Vol] 20.2 10*3/uL High 3.8-11.6 [facility] Comment on above: Performed By: #### M G, HCGQUAL, CBC, LACTIC, HEPATIC, CMP, PP ####[address] Comprehensive Metabolic Pane mary beth 05-27-2022 Albumin [Mass/Vol] 3.3 g/dL Normal 3.2-5.5 [facility] Comment on above: Performed By: #### M G, HCGQUAL, CBC, LACTIC, HEPATIC, CMP, PP ####[address] Albumin/Globulin [Mass ratio] 1.1 {ratio} Normal [facility] Comment on above: Performed By: #### M G, HCGQUAL, CBC, LACTIC, HEPATIC, CMP, PP ####[address] [address] [facility] ALP [Catalytic activity/Vol] 144 U/L High 32-92 [facility] Comment on above: Performed By: #### M G, HCGQUAL, CBC, LACTIC, HEPATIC, CMP, PP ####[address] [address] [facility] ALT [Catalytic activity/Vol] 52 U/L Normal 10-60 [facility] Comment on above: Performed By: #### M G, HCGQUAL, CBC, LACTIC, HEPATIC, CMP, PP ####[address] [address] [facility] Anion gap [Moles/Vol] 27.1 mmol/L High 6.0-15.0 [facility] Comment on above: Performed By: #### M G, HCGQUAL, CBC, LACTIC, HEPATIC, CMP, PP ####[place] [id number] [facility] AST [Catalytic activity/Vol] 40 U/L Normal 10-42 [facility] Comment on above: Performed By: #### M G, HCGQUAL, CBC, LACTIC, HEPATIC, CMP, PP ####[place] [id number] [facility] Bilirubin [Mass/Vol] 0.9 mg/dL Normal 0.3-1.2 [facility] Comment on above: Performed By: #### M G, HCGQUAL, CBC, LACTIC, HEPATIC, CMP, PP ####[address] [address] [facility] Calcium [Mass/Vol] 9.6 mg/dL Normal 8.2-10.2 [facility] Comment on above: Performed By: #### M G, HCGQUAL, CBC, LACTIC, HEPATIC, CMP, PP ####[address] [address] [facility] Chloride [Moles/Vol] 114 mmol/L Normal 95-114 [facility] Comment on above: Performed By: #### M G, HCGQUAL, CBC, LACTIC, HEPATIC, CMP, PP ####[facility] [place] [address] [facility] CO2 [Moles/Vol] 11.7 mmol/L Low 22.0-30.0 [facility] Comment on above: Performed By: #### M G, HCGQUAL, CBC, LACTIC, HEPATIC, CMP, PP ####[place] [place] [address] [facility] Creatinine [Mass/Vol] 1.42 mg/dL High 0.44-1.03 [facility] Comment on above: Performed By: #### M G, HCGQUAL, CBC, LACTIC, HEPATIC, CMP, PP ####[place] [id number] [facility] Creatinine Clr Calc Pharmacy 33.28 [facility] Comment on above: Performed By: #### M G, HCGQUAL, CBC, LACTIC, HEPATIC, CMP, PP ####[place] [id number] [facility] Estimated GFR ( Martha 46 [facility] Comment on above: Result Comment: GFR estimated reference range: According to KDOQI guidelines, <60 ml/min/1.73m2 is sufficient to diagnose a patient with chronic kidney disease. Performed By: #### M G, HCGQUAL, CBC, LACTIC, HEPATIC, CMP, PP ####[address] [address] [facility] Estimated GFR (Non- Am 38 [facility] Comment on above: Performed By: #### M G, HCGQUAL, CBC, LACTIC, HEPATIC, CMP, PP ####[address] [address] [facility] Globulin (S) [Mass/Vol] 3.1 g/dL [facility] Comment on above: Performed By: #### M G, HCGQUAL, CBC, LACTIC, HEPATIC, CMP, PP ####[address] [address] [place] [address] [facility] Glucose [Mass/Vol] 502 mg/dL Off scale high 70-100 [facility] Comment on above: Result Comment: [facility] Glucose Reference Range is dependent on time and content of last meal. Glucose of more than 200 mg/dL in a nonstressed, ambulatory subject supports the diagnosis of Diabetes Mellitus. ADA recommended reference range Performed By: #### M G, HCGQUAL, CBC, LACTIC, HEPATIC, CMP, PP ####[facility] [place] [address] [facility] Potassium [Moles/Vol] 2.8 mmol/L Off scale low 3.5-5.1 [facility] Comment on above: Result Comment: Crit ical value result called at 1626 on 05/27/22 Performed By: #### M G, HCGQUAL, CBC, LACTIC, HEPATIC, CMP, PP ####[address] [place] [address] [facility] Protein [Mass/Vol] 6.4 g/dL Normal 6.1-7.9 [facility] Comment on above: Performed By: #### M G, HCGQUAL, CBC, LACTIC, HEPATIC, CMP, PP ####[place] [address] [place] [address] [facility] Sodium [Moles/Vol] 150 mmol/L High 136-146 [facility] Comment on above: Performed By: #### M G, HCGQUAL, CBC, LACTIC, HEPATIC, CMP, PP ####[address] [address] [facility] Urea nitrogen [Mass/Vol] 39 mg/dL High 9-23 [facility] Comment on above: Performed By: #### M G, HCGQUAL, CBC, LACTIC, HEPATIC, CMP, PP ####[address] [address] [facility]on 05-17 SARS-CoV-2 (COVID-19) RNA LOUISE+probe Ql (Unsp spec) Not detected Normal NOT DETECTED [facility] Comment on above: Result Comment: When diagnostic testing is negative, the possibility of a false negative should be considered inthe context of a patient's recent exposures and the presence of clinical signs and symptomsconsistent with SARS-CoV-2.This test is not yet approved or cleared by the [place] FDA. When there are no FDA-approved or cleared tests available, and other criteria are met, FDA can make tests available under an emergency access mechanism called an Emergency Use Authorization (EUA). The EUA for this test is supported by the [employer] of Health and Human Service's declaration that circumstances exist to justify the emergency use of in vitro diagnostics for the detection and/or diagnosis of the virus that causes COVID-19. This EUA will remain in effect for the duration of the COVID-19 declaration justifying emergency of IVDs, unless it is terminated or revoked by the FDA (after which the test may no longer be used). Performed By: #### [facility] ####[facility] [address] [place] [address]DrGiancarlo Grace Nasir Dipstick and Microscopicon 0 05-27-2022 Appearance (U) Clear Normal Clear [facility] Comment on above: Order Comment: Name Collection Type:: Other Performed By: #### A DDONUAPLUS ####[place] [id number] [facility] Bacteria,Urine None Seen Normal None Seen [facility] Comment on above: Order Comment: Name Collection Type:: Other Performed By: #### A DDONUAPLUS ####[place] [id number] [facility] Bilirubin,Urine Negative Normal Negative [facility] Comment on above: Order Comment: Name Collection Type:: Other Performed By: #### A DDONUAPLUS ####[place] [id number] [facility] Color (U) Yellow Normal Yellow [facility] Comment on above: Order Comment: Name Collection Type:: Other Performed By: #### A DDONUAPLUS ####[place] [id number] [facility] Glucose Ql (U) >=1000 High Normal [facility] Comment on above: Order Comment: Name Collection Type:: Other Performed By: #### A DDONUAPLUS ####[place] [id number] [place] Hyaline Casts,Urine 0-8 Normal 0-8 [facility] Comment on above: Order Comment: Name Collection Type:: Other Result Comment: PERF ORMED BY:[place] [address] [address] [place], [place] [phone] MEDICAL DIRECTORELI FINK M.D. Performed By: #### A DDONUAPLUS ####[place] [id number] [facility] Ketones Ql (U) 1+ High Negative [facility] Comment on above: Order Comment: Name Collection Type:: Other Performed By: #### A DDONUAPLUS ####[address] [address] [facility] Leukocyte esterase Test strip Ql (U) Negative Normal Negative [facility] Comment on above: Order Comment: Name Collection Type:: Other Performed By: #### A DDONUAPLUS ####[address] [address] [facility] Nitrite,Urine Negative Normal Negative [facility] Comment on above: Order Comment: Name Collection Type:: Other Performed By: #### A DDONUAPLUS ####[address] [address] [facility] Occult Blood,Urine Trace High Negative [facility] Comment on above: Order Comment: Name Collection Type:: Other Result Comment: PERF ORMED BY:[place] [address] [address] [place], [place] [phone] MEDICAL ALTAGRACIA FINK M.D. Performed By: #### A DDONUAPLUS ####[address] [address] [facility] pH (U) 7.0 [pH] Normal 5.0-9.0 [facility] Comment on above: Order Comment: Name Collection Type:: Other Performed By: #### A DDONUAPLUS ####[address] [address] [facility] RBC,Urine 5-9 High 0-4 [facility] Comment on above: Order Comment: Name Collection Type:: Other Performed By: #### A DDONUAPLUS ####[facility] Xaz5092 [place] [address] [facility] Specificy [place],Urine 1.019 Normal 1.001-1.030 [facility] Comment on above: Order Comment: Name Collection Type:: Other Performed By: #### A DDONUAPLUS ####[address] [address] [facility] Squamous Epithelial Cell,Urine 1-2 Normal 0-2 [facility] Comment on above: Order Comment: Name Collection Type:: Other Performed By: #### A DDONUAPLUS ####[address] [address] [facility] Urobilinogen,Urine Normal Normal Normal [facility] Comment on above: Order Comment: Name Collection Type:: Other Performed By: #### A DDONUAPLUS ####[address] [address] [facility] WBC,Urine 3-4 Normal 0-4 [facility] Comment on above: Order Comment: Name Collection Type:: Other Performed By: #### A DDONUAPLUS ####[address] [address] [facility] ER URINE PROFILEon 3 Protein (U) [Mass/Vol] 30 mg/dL High Negative [facility] Comment on above: Performed By: #### SIMÓN TOVAR ####[facility] [address]ys[address] [place] [address]DrGiancarlo Best Order Comment: Name Collection Type:: Other Performed By: #### A DDONUAPLUS ####[address] [address] [facility] Bilirubin Ql (U) Negative Normal NEGATIVE The [facility] Comment on above: Performed By: #### SIMÓN TOVAR ####[facility] Yjwcotpjdx0209 [place], [place] [address]AhGiancarlo Best Clarity (U) CLEAR Normal CLEAR [facility] Comment on above: Performed By: #### SIMÓN TOVAR ####[facility] Bkfqymmszb[address] [place] [address]Dr. Grace Best Color (U) LT. YELLOW Normal YELLOW [facility] Comment on above: Performed By: #### SIMÓN TOVAR ####[facility] Nmla[address] [place], [place] [address]Dr. Grace Best ERUAHD A micrscopic examination will be performed if indicated. Normal [facility] Comment on above: Performed By: #### SIMÓN TOVAR ####[facility] Ewtiriw[address] [place], [place] [address]Dr. Grace Best Glucose Ql (U) 1000 mg/dl Abnormal NEGATIVE The [facility] Comment on above: Performed By: #### SIMÓN TOVAR ####[facility] Ehhoikuoay[address] [place], [place] [address]Dr. Grace Best Hemoglobin Ql (U) SMALL Abnormal NEGATIVE The [facility] Comment on above: Performed By: #### SIMÓN TOVAR ####[facility] Svsihvzxxd[address] [place], [place] [address]Dr. Grace Best Ketones Ql (U) 40 mg/dl Abnormal NEGATIVE The [facility] Comment on above: Performed By: #### SIMÓN TOVAR ####[facility] Rzobtshatu[address] [place], [place] [address]Dr. Grace Best LEUKOCYTES Negative Normal NEGATIVE [facility] Comment on above: Performed By: #### SIMÓN TOVAR ####[facility] Vcknmmb[address] [place], [place] [address]Dr. Grace Best Nitrite Ql (U) Negative Normal NEGATIVE The [facility] Comment on above: Performed By: #### SIMÓN TOVAR ####[facility] Lwqqukuosf[address] [place], [place] [address]Dr. Grace Best pH (U) 6.0 [pH] Normal 5-9 [facility] Comment on above: Performed By: #### SIMÓN TOVAR ####[facility] Ztiltbqhgx[address] [place], [place] [address]Dr. Grace Best SPEC GRAVITY 1.010 Normal 1.005-<=1.0 25 [facility] Comment on above: Performed By: #### SIMÓN TOVAR ####[facility] Nkxmuarbny6318 [place] [address]Dr. Grace Best UR MICRO IND INDICATED Normal [facility] Comment on above: Performed By: #### SIMÓN TOVAR ####[facility] Ciqzxvxzad36[address] [place] [address]Dr. Grace Best Urobilinogen Qn (U) 0.2 {Ancelmo'U}/dL Normal 0.2 - 1. 0 [facility] Comment on above: Performed By: #### SIMÓN TOVAR ####[facility] Vqv[address]mowugf[address] [place] [address]Dr. Grace Best Glucose Poct Glucometerson 0 05-27-2022 Commemt1 Glu2: Cleaned Meter [facility] Comment on above: Result Comment: PERF ORMED BY:[place] [address] [address] [place], [place] [phone] MEDICAL DIRECTORELI FINK M.D. Performed By: #### G PILY ####Point of Care testing, Glucose [Mass/Vol] 367 mg/dL Normal [facility] Comment on above: Result Comment: [facility] Glucose Reference Range is dependent on time and content of last meal. Glucose of more than 200 mg/dL in a nonstressed, ambulatory subject supports the diagnosis of Diabetes Mellitus. Performed By: #### G PILY ####Point of Care testing, Commemt1 Glu2: Cleaned Meter [facility] Comment on above: Result Comment: PERF ORMED BY:[place] [address] [address] [place], [place] [phone] MEDICAL DIRECTORELI FINK M.D. Performed By: #### G LULS ####Point of Care testing, Glucose [Mass/Vol] 274 mg/dL Normal [facility] Comment on above: Result Comment: [facility] Glucose Reference Range is dependent on time and content of last meal. Glucose of more than 200 mg/dL in a nonstressed, ambulatory subject supports the diagnosis of Diabetes Mellitus. Performed By: #### G LULS ####Point of Care testing, Glucose [Mass/Vol] 380 mg/dL Normal [facility] Comment on above: Result Comment: [facility] Glucose Reference Range is dependent on time and content of last meal. Glucose of more than 200 mg/dL in a nonstressed, ambulatory subject supports the diagnosis of Diabetes Mellitus.PERFORMED BY:[place] [address] [place] [place], [place] [phone] MEDICAL DIRECTORELI FINK M.D. Performed By: #### G LULS ####Point of Care testing, Glucose [Mass/Vol] 367 mg/dL Normal [facility] Comment on above: Result Comment: [facility] Glucose Reference Range is dependent on time and content of last meal. Glucose of more than 200 mg/dL in a nonstressed, ambulatory subject supports the diagnosis of Diabetes Mellitus.PERFORMED BY:[place] [address] [place], [place] [phone] MEDICAL DIRECTORELI FINK M.D. Performed By: #### G LULS ####Point of Care testing, Glucose [Mass/Vol] 312 mg/dL Normal [facility] Comment on above: Result Comment: [facility] Glucose Reference Range is dependent on time and content of last meal. Glucose of more than 200 mg/dL in a nonstressed, ambulatory subject supports the diagnosis of Diabetes Mellitus.PERFORMED BY:[place] [address] [place] [place], [place] [phone] MEDICAL ALTAGRACIA FINK M.D. Performed By: #### G LULS ####Point of Care testing, HCG,Qualitative Serumon 05-17 HCG,Qualitative Serum Negative Normal [facility] Comment on above: Result Comment: PERF ORMED BY:[place] [address] [place] [place], [place] [phone] MEDICAL ALTAGRACIA FINK M.D. Performed By: #### M G, HCGQUAL, CBC, LACTIC, HEPATIC, CMP, PP ####[address] [address] [facility] Hepatic Panelon 05-27-2022 Bilirubin,Indirect 0.7 mg/dL Normal [facility] Comment on above: Performed By: #### M G, HCGQUAL, CBC, LACTIC, HEPATIC, CMP, PP ####[address] [address] [facility] Bilirubin.indirect [Mass/Vol] 0.2 mg/dL Normal 0.0-0.4 [facility] Comment on above: Performed By: #### M G, HCGQUAL, CBC, LACTIC, HEPATIC, CMP, PP ####[place] [id number] [facility] ISTAT Glucose Pocon 05-27-19 Glucose [Mass/Vol] 430 mg/dL High 70-105 [facility] Comment on above: Result Comment: PERF ORMED BY:[place] [address] [place], [place] [phone] MEDICAL DIRECTORELI FINK M.D. Performed By: #### I SGLU ####Point of Care testing, LACTATE/LACTIC ACIDon 2022 Lactate [Moles/Vol] 8.6 mmol/L Critically high 0.4-1.9 [facility] Comment on above: Performed By: #### L ACT ####[facility] Fidkooreft8303 [address] StreetGiancarlo Grace Best Lactic Acidon 05-27-2022 Lactate [Moles/Vol] 11.0 mmol/L Off scale high 0.5-2.2 [facility] Comment on above: Result Comment: Crit ical value result called at 2202 on 05/27/22PERFORMED BY:[place] [address] [address] [place], [place] [phone] MEDICAL DIRECTORELI FINK M.D. Performed By: #### L ACTIC ####[address] [address] [facility] Lactate [Moles/Vol] 15.4 mmol/L Off scale high 0.5-2.2 [facility] Comment on above: Result Comment: Crit ical value result called at 1630 on 05/27/22PERFORMED BY:[address] [place], [place] [phone] MEDICAL DIRECTORELI FINK M.D. Performed By: #### M G, HCGQUAL, CBC, LACTIC, HEPATIC, CMP, PP ####[facility] Qfz0807 [place] [address] [facility] Magnesiumon 05-27-2022 Magnesium [Mass/Vol] 2.4 mg/dL Normal 1.6-2.6 [facility] Comment on above: Performed By: #### M G, HCGQUAL, CBC, LACTIC, HEPATIC, CMP, PP ####[place] [address] [place] [address] [facility] POINT OF CARE GLUCOSEon 05-17 POCGLUC >600 Critically high 74-106 [facility] Comment on above: Result Comment: Resu lt Not Confirmed Performed By: #### P OCGLUC ####[facility] [address]fvsgs[address] [place] [address]Dr. Grace Best PROF CHEM 8 (BAS METB)on Anion gap [Moles/Vol] 45.0 mmol/L Normal [facility] Comment on above: Performed By: #### B MP, CMADM, TSH, BNP ####[facility] [address]dt[address]ok[address] [place] [address]Dr. Grace Best Calcium [Mass/Vol] 10.7 mg/dL Critically high 8.5-10.1 [facility] Comment on above: Performed By: #### B MP, CMADM, TSH, BNP ####[facility] Ejvfywkoaa[address] [place] [address]Dr. Grace Best Chloride [Moles/Vol] 96 mmol/L Critically low 98-107 [facility] Comment on above: Performed By: #### B MP, CMADM, TSH, BNP ####[facility] Hqwgsejibt3612 [place] [address]Dr. Grace Best CO2 [Moles/Vol] mmol/L Critically low 21.0-32.0 [facility] Comment on above: Performed By: #### B MP, CMADM, TSH, BNP ####[facility] I[address]fqimyuf6[address] [place] [address]Dr. Grace Best Creatinine [Mass/Vol] 1.57 mg/dL Critically high 0.55-1.02 [facility] Comment on above: Performed By: #### B MP, CMADM, TSH, BNP ####[facility] N[address]fxbr[address]hy[address] [place] [address]Dr. Grace Nasir EGFR-AF NORWEGIAN 41 mL/min/1.73m2 Critically low >=60 [facility] Comment on above: Performed By: #### B MP, CMADM, TSH, BNP ####[facility] Gn[address]zb[address] [place], [place] [address]Dr. Grace Nasir EGFR-NON AF NORWEGIAN 34 mL/min/1.73m2 Critically low >=60 [facility] Comment on above: Performed By: #### B MP, CMADM, TSH, BNP ####[facility] Gclemnvhtx[address] [place], [place] [address]Dr. Grace Best Glucose [Mass/Vol] 1210 mg/dL Critically high 74-106 [facility] Comment on above: Performed By: #### B MP, CMADM, TSH, BNP ####[facility] Hyougadmoi[address] [place], [place] [address]Dr. Grace Best Potassium [Moles/Vol] 4.8 mmol/L Normal 3.5-5.1 [facility] Comment on above: Performed By: #### B MP, CMADM, TSH, BNP ####[facility] Wrbdakyugg[address] [place], [place] [address]Dr. Grace Best Sodium [Moles/Vol] 140 mmol/L Normal 136-145 [facility] Comment on above: Performed By: #### B MP, CMADM, TSH, BNP ####[facility] Pr[address] [place], [place] [address]Dr. Grace Best Urea nitrogen [Mass/Vol] 45.0 mg/dL Critically high 7.0-18.0 [facility] Comment on above: Performed By: #### B MP, CMADM, TSH, BNP ####[facility] Dvaqpeddsb6151 [place] [address]Dr. Grace Best Urea nitrogen/Creatinine [Mass ratio] 28.7 mg/mg Normal [facility] Comment on above: Performed By: #### B MP, CMADM, TSH, BNP ####[facility] Tixdhpzbbs5093 [place] [address]Dr. Grace Best PROTIMEon 05-27-2022 PT Coag (PPP) [Time] 10.0 s Normal 9.0-12.9 [facility] Comment on above: Performed By: #### P TT, PT ####[facility] Kfafvflgdx[address] [place], [place] [address]Dr. Grace Best Performed By: #### M G, HCGQUAL, CBC, LACTIC, HEPATIC, CMP, PP ####[facility] Ulf[address] INR Coag (PPP) [Relative time] 0.94 {INR} Normal [facility] Comment on above: Performed By: #### P TT, PT ####[facility] Veqnianyog[address] [place] [address]Dr. Grace Best INR GUIDELINES SEE BELOW Normal [facility] Comment on above: Result Comment: BRANDY RED INR: 2.0 - 3.0 CONDITIONS NOT LISTED BELOW 2.5 - 3.5 FOR PROSTHETIC HEART VALVE REPLACEMENT 2.5 - 3.5 RECURRENT THROMBOSIS Performed By: #### P TT, PT ####[facility] Ixisjuicmc[address] [place], [place] [address]DrGiancarlo Best PTTon 05-27-2022 aPTT Coag (Bld) [Time] 32.1 s Normal 22.3-36.2 [facility] Comment on above: Performed By: #### P TT, PT ####[facility] Jtfqgmqfyx[address] [place], [place] [address]Dr. Grace Best TSHon 05-27-2022 TSH 1.373 uIU/mL Normal 0.358-3.740 [facility] Comment on above: Performed By: #### B MP, CMADM, TSH, BNP ####[facility] [address]fp[address]pg26[address] [place], [place] [address]Ng. Grace Best Triglycerideson 05-27-2022 Triglyceride [Mass/Vol] 175 mg/dL High 35-149 F [facility] Comment on above: Result Comment: TRIG ATP III CLASSIFICATION TRIG less than 150 mg/dL Normal TRIG 150-199 mg/dL Borderline high TRIG 200-500 mg/dL High TRIG greater than 500 mg/dL Very high Standard traceable to the Center for Disease Conrtrol and Prevention (CDC) test method.PERFORMED BY:[facility] [place], [place] [phone] MEDICAL DIRECTORELI FINK M.D. Performed By: #### T RIG ####[facility] [place] [address] [place] Type and Screenon 05-27-2022 ABO and Rh group Nom (Bld) Blood group A Rh(D) positive Normal [facility] Comment on above: Order Comment: BLOOD BANK IS DRAWN URINE MICROSCOPIC ONLYon BACTERIA NONE SEEN Normal NONE SEEN [facility] Comment on above: Performed By: #### Carmine SAINZ UMICRO ####[facility] [address]ivhs[address] [place] [address]Dr. Grace Best Bacteria identified Cx Nom (U) NOT INDICATED Normal [facility] Comment on above: Performed By: #### Carmine SAINZ UMICRO ####[facility] [address] [place] [id number]. Grace Best CAST NONE SEEN Normal NONE SEEN [facility] Comment on above: Performed By: #### Carmine SAINZ UMICRO ####[facility] [address]cp[address] [place] [phone]. Grace Best Crystals LM Nom (Urine sed) NONE SEEN Normal NONE SEEN [facility] Comment on above: Performed By: #### E EMELI UMICRO ####[facility] N[address]zhftree[address] [place] [id number]. Grace Best Epithelial cells LM Ql (Urine sed) RARE Normal NONE SEEN /RARE [facility] Comment on above: Performed By: #### SIMÓN TOVAR ####[facility] Hogjncexwa[address] [place] [id number]. Grace Best MUCOUS NONE SEEN Normal NONE SEEN [facility] Comment on above: Performed By: #### DEL TOVARRO ####[facility] S[address]qshepko[address] [place] [id number]. Grace Best RBC NONE SEEN Abnormal 0-2 [facility] Comment on above: Performed By: #### SIMÓN TOVAR ####[facility] Xzlhntkxiz9287 [place] [address]Dr. Grace Best WBC 0-2 Abnormal NONE SEEN [facility] Comment on above: Performed By: #### SIMÓN TOVAR ####[facility] Nqdx[address] [place], [place] [address]Dr. Grace Best XR CHEST 1 Von 05-27-2022 XR CHEST 1 V Normal [facility] XR CHEST 1 V Normal [facility] XR PELVIS 1_2 VIEWSon 2022 XR PELVIS 1_2 VIEWS Normal [facility] XR abdomen 1Von 05-27-2022 XR abdomen 1V Normal [facility] XR chest 1V portableon 05-27 XR chest 1V portable Normal [facility] CBC AUTO DIFFon 05-12-2022 BASO # 0.0 103/ul Normal 0.0-0.1 [facility] Comment on above: Performed By: #### C BC ####[facility] Wnjjdzexux[address] [place], [place] [address]Dr. Grace Best Basophils/100 WBC (Bld) 0.1 % Critically low 0.2-2.0 [facility] Comment on above: Performed By: #### C BC ####[facility] Rlgmxptcau1742 [place] [address]Dr. Grace Best EO # 0.0 103/ul Normal 0.0-0.7 [facility] Comment on above: Performed By: #### C BC ####[facility] Qpydrxkvqe[address] [place], [place] [address]Dr. Grace Nasir Eosinophils/100 WBC (Bld) 0.3 % Critically low 0.9-7.0 [facility] Comment on above: Performed By: #### C BC ####[facility] Vdnwevarax[address] [place], [place] [address]Dr. Grace Nasir Erythrocyte distribution width (RBC) [Ratio] 16.1 % Critically high 11.0-15.0 [facility] Comment on above: Performed By: #### C BC ####[facility] Huidzbtfro[address] [place], [place] [address]Dr. Grace Best Hematocrit (Bld) [Volume fraction] 39.0 % Normal 36.0-48.0 [facility] Comment on above: Performed By: #### C BC ####[facility] D[address]tpigimz[address] [place], [place] [address]Dr. Grace Best Hemoglobin (Bld) [Mass/Vol] 11.7 g/dL Critically low 12.0-16.0 [facility] Comment on above: Performed By: #### C BC ####[facility] Lrxhflwtgh[address] [place], [place] [address]Dr. Grace Best IG # 0.03 10e3/ul Normal 0.00-0.03 [facility] Comment on above: Performed By: #### C BC ####[facility] Lhejligpqn[address] [place], [place] [address]Dr. Grace Best IG % 0.4 % Normal 0.0-0.5 [facility] Comment on above: Performed By: #### C BC ####[facility] Rafbdojngy[address] [place], [place] [address]Dr. Grace Best LYMPH # 1.3 103/ul Normal 1.2-3.8 [facility] Comment on above: Performed By: #### C BC ####[facility] Lmodmitwpw[address] [place], [place] [address]DrGiancarlo Best Lymphocytes/100 WBC (Bld) 18.7 % Critically low 20.5-60.0 [facility] Comment on above: Performed By: #### C BC ####[facility] A[address]pxd[address]lm[address] [place] [address]DrGiancarlo Best MANUAL DIFF REQ NO Normal [facility] Comment on above: Performed By: #### C BC ####[facility] Aqipnrknqm7647 [place] [address]Dr. Grace Best MCH (RBC) [Entitic mass] 28.7 pg Normal 26.7-34.0 [facility] Comment on above: Performed By: #### C BC ####[facility] Mvotxgxajq[address] [place], [place] [address]DrGiancarlo Best MCHC (RBC) [Mass/Vol] 30.0 g/dL Normal 29.9-35.2 [facility] Comment on above: Performed By: #### C BC ####[facility] Gzpgtunnif[address] [place], [place] [address]DrGiancarlo Best MCV (RBC) [Entitic vol] 95.8 fL Normal 81.0-99.0 [facility] Comment on above: Performed By: #### C BC ####[facility] Cavmtmqumn[address] [place], [place] [address]DrGiancarlo Best MONO # 0.5 103/ul Normal 0.3-0.8 [facility] Comment on above: Performed By: #### C BC ####[facility] Uiugmdtqmr[address] [place], [place] [address]DrGiancarlo Best Monocytes/100 WBC (Bld) 7.5 % Normal 1.7-12.0 [facility] Comment on above: Performed By: #### C BC ####[facility] Gpvhj[address]vnkl[address] [place], [place] [address]DrGiancarlo Best NEUT # 5.2 103/ul Normal 1.4-6.5 [facility] Comment on above: Performed By: #### C BC ####[facility] Nklgc[address]jqp[address] [place], [place] [address]DrGiancarlo Best Neutrophils/100 WBC (Bld) 73.0 % Normal 43.0-75.0 [facility] Comment on above: Performed By: #### C BC ####[facility] Hpssesifbg8340 [place] [address]Dr. Grace Best Platelet mean volume (Bld) [Entitic vol] 9.9 fL Normal 9.5-13.5 [facility] Comment on above: Performed By: #### C BC ####[facility] Ztdzbenkjp6141 [place] [address]DrGiancarlo Grace Best PLT 366 103/ul Normal 150-450 [facility] Comment on above: Performed By: #### C BC ####[facility] Ayvgxzeiyf[address] [place], [place] [address]DrGiancarlo Grace Best RBC 4.07 106/ul Critically low 4.20-5.40 [facility] Comment on above: Performed By: #### C BC ####[facility] Rwsigbbixp[address] [place], [place] [address]DrGiancarlo Grace Nasir WBC 7.1 103/ul Normal 4.0-11.0 [facility] Comment on above: Performed By: #### C BC ####[facility] Xplpzmxuhy[address] [place], [place] [address]DrGiancarlo Grace Best POINT OF CARE GLUCOSEon 04-17 Glucose [Mass/Vol] 370 mg/dL Critically high 74-106 [facility] Comment on above: Performed By: #### P OCGLUC ####[facility] Udcwekrbsv[address] [place], [place] [address]DrGiancarlo Grace Nasir Glucose [Mass/Vol] 305 mg/dL Critically high 74-106 [facility] Comment on above: Performed By: #### P OCGLUC ####[facility] Unpphiltgi[address] [place], [place] [address]DrGiancarlo Grace Nasir PROF 14(COMP METB)on 023 Albumin [Mass/Vol] 2.2 g/dL Critically low 3.4-5.0 [facility] Comment on above: Performed By: #### C MP ####[facility] K[address]uz[address]awjjv[address] [place] [address]Dr. Grace Nasir Albumin/Globulin [Mass ratio] 0.7 {ratio} Normal [facility] Comment on above: Performed By: #### C MP ####[facility] Qu[address]ybylbo54[address] [place] [address]Dr. Grace Nasir ALP [Catalytic activity/Vol] 78 U/L Normal 46-116 [facility] Comment on above: Performed By: #### C MP ####[facility] R[address]df[address]za[address] [place], [place] [address]Dr. Grace Best ALT [Catalytic activity/Vol] 49 U/L Normal 14-59 [facility] Comment on above: Performed By: #### C MP ####[facility] Vkugmouemb[address] [place], [place] [address]Dr. Grace Best Anion gap [Moles/Vol] 9.7 mmol/L Normal [facility] Comment on above: Performed By: #### C MP ####[facility] [address] [place], [place] [address]Dr. Grace Best AST [Catalytic activity/Vol] 47 U/L Critically high 15-37 [facility] Comment on above: Performed By: #### C MP ####[facility] [facility] [address]whug[address] [place], [place] [address]Dr. Grace Best Bilirubin [Mass/Vol] 0.4 mg/dL Normal 0.2-1.0 [facility] Comment on above: Performed By: #### C MP ####[facility] Cahkcopntk[address] [place], [place] [address]Dr. Grace Best Calcium [Mass/Vol] 8.6 mg/dL Normal 8.5-10.1 [facility] Comment on above: Performed By: #### C MP ####[facility] Hleaffsfpx078[address] [place], [place] [address]Dr. Grace Best Chloride [Moles/Vol] 101 mmol/L Normal 98-107 [facility] Comment on above: Performed By: #### C MP ####[facility] Fdggxntisj235[address] [place], [place] [address]Dr. Grace Best CO2 [Moles/Vol] 26.3 mmol/L Normal 21.0-32.0 [facility] Comment on above: Performed By: #### C MP ####[facility] Usqmhvmstz8504 [place] [address]Dr. Grace Nasir Creatinine [Mass/Vol] 0.54 mg/dL Critically low 0.55-1.02 [facility] Comment on above: Performed By: #### C MP ####[facility] Auywwzueyb2233 [place] [id number]. Grace Nasir EGFR-AF NORWEGIAN >60 Normal >=60 [facility] Comment on above: Performed By: #### C MP ####[facility] Zmdcnrhfuq35[address] [place], [place] [address]Dr. Grace Nasir EGFR-NON AF NORWEGIAN >60 Normal >=60 [facility] Comment on above: Performed By: #### C MP ####[facility] Dkbphszxnc9[address] [place], [place] [address]Dr. Grace Nasir Globulin (S) [Mass/Vol] 3.0 g/dL Normal [facility] Comment on above: Performed By: #### C MP ####[facility] Gthefakpcy45[address] [place], [place] [address]Dr. Grace Nasir Glucose [Mass/Vol] 284 mg/dL Critically high 74-106 [facility] Comment on above: Performed By: #### C MP ####[facility] Uqonedvnbx01[address] [place], [place] [address]Dr. Roxannega Best Potassium [Moles/Vol] 4.0 mmol/L Normal 3.5-5.1 [facility] Comment on above: Performed By: #### C MP ####[facility] Ndaquvpdvi597[address] [place], [place] [address]Dr. Grace Best Protein [Mass/Vol] 5.2 g/dL Critically low 6.4-8.2 [facility] Comment on above: Performed By: #### C MP ####[facility] Ejiojslnqw[address] [place], [place] [address]Dr. Grace Best Sodium [Moles/Vol] 133 mmol/L Critically low 136-145 [facility] Comment on above: Performed By: #### C MP ####[facility] Hsoibtlxxa[address] [place], [place] [address]Dr. Grace Best Urea nitrogen [Mass/Vol] 20.0 mg/dL Critically high 7.0-18.0 [facility] Comment on above: Performed By: #### C MP ####[facility] Sfptooqhfg[address] [place], [place] [address]Dr. Grace Best Urea nitrogen/Creatinine [Mass ratio] 37.0 mg/mg Normal [facility] Comment on above: Performed By: #### C MP ####[facility] Xihcmknstl350[address] [place], [place] [address]Dr. Grace Best CBC AUTO DIFFon 05-11-2022 BASO # 0.0 103/ul Normal 0.0-0.1 [facility] Comment on above: Performed By: #### C BC ####[facility] Yxtraninqz39[address] [place], [place] [address]Dr. Grace Best Basophils/100 WBC (Bld) 0.2 % Normal 0.2-2.0 [facility] Comment on above: Performed By: #### C BC ####[facility] Irjpgpjytv015[address] [place], [place] [address]Dr. Grace Best EO # 0.0 103/ul Normal 0.0-0.7 [facility] Comment on above: Performed By: #### C BC ####[facility] Nrklqvjciv424[address] [place], [place] [address]Dr. Grace Best Eosinophils/100 WBC (Bld) 0.0 % Critically low 0.9-7.0 [facility] Comment on above: Performed By: #### C BC ####[facility] Rlymnkdvcn590[address] [place], [place] [address]Dr. Grace Best Erythrocyte distribution width (RBC) [Ratio] 16.4 % Critically high 11.0-15.0 [facility] Comment on above: Performed By: #### C BC ####[facility] Lurreivxej712[address] [place], [place] [address]Dr. Grace Best Hematocrit (Bld) [Volume fraction] 35.6 % Critically low 36.0-48.0 [facility] Comment on above: Performed By: #### C BC ####[facility] Mawrrgknfv1020 [place] [address]DrGiancarlo Best Hemoglobin (Bld) [Mass/Vol] 11.0 g/dL Critically low 12.0-16.0 [facility] Comment on above: Performed By: #### C BC ####[facility] Tlirvgwmoa9628 [place] [address]Dr. Grace Best IG # 0.03 10e3/ul Normal 0.00-0.03 [facility] Comment on above: Performed By: #### C BC ####[facility] Gbirogpyyr3874 [place] [address]Dr. Grace Best IG % 0.4 % Normal 0.0-0.5 [facility] Comment on above: Performed By: #### C BC ####[facility] Dznprpcagb3314 [place] [address]DrGiancarlo Best LYMPH # 0.9 103/ul Critically low 1.2-3.8 [facility] Comment on above: Performed By: #### C BC ####[facility] Fhryehupcq5189 [place] [address]DrGiancarlo Best Lymphocytes/100 WBC (Bld) 11.5 % Critically low 20.5-60.0 [facility] Comment on above: Performed By: #### C BC ####[facility] Veznntegwr4229 [place] [address]DrGiancarlo Best MANUAL DIFF REQ NO Normal [facility] Comment on above: Performed By: #### C BC ####[facility] Jineqmsatx4084 [place] [address]DrGiancarlo Best MCH (RBC) [Entitic mass] 29.4 pg Normal 26.7-34.0 [facility] Comment on above: Performed By: #### C BC ####[facility] Wvbsqiblip7158 [place] [address]Dr. Grace Best MCHC (RBC) [Mass/Vol] 30.9 g/dL Normal 29.9-35.2 [facility] Comment on above: Performed By: #### C BC ####[facility] Gjcdyscciw4309 [place] [address]Dr. Grace Nasir MCV (RBC) [Entitic vol] 95.2 fL Normal 81.0-99.0 [facility] Comment on above: Performed By: #### C BC ####[facility] Udlpvatcji164[address] [place], [place] [address]Dr. Grace Best MONO # 0.6 103/ul Normal 0.3-0.8 [facility] Comment on above: Performed By: #### C BC ####[facility] Jbbnsoweha46[address] [place], [place] [address]Dr. Grace Best Monocytes/100 WBC (Bld) 7.0 % Normal 1.7-12.0 [facility] Comment on above: Performed By: #### C BC ####[facility] Ebpkcembnl5632[address] [place], [place] [address]Dr. Grace Best NEUT # 6.5 103/ul Normal 1.4-6.5 [facility] Comment on above: Performed By: #### C BC ####[facility] Evyhlikifh25[address] [place], [place] [address]Dr. Grace Best Neutrophils/100 WBC (Bld) 80.9 % Critically high 43.0-75.0 [facility] Comment on above: Performed By: #### C BC ####[facility] Sumsneuwxi433[address] [place], [place] [address]Dr. Grace Best Platelet mean volume (Bld) [Entitic vol] 9.9 fL Normal 9.5-13.5 [facility] Comment on above: Performed By: #### C BC ####[facility] Sozenlogyk8[address] [place], [place] [address]Dr. Grace Best PLT 360 103/ul Normal 150-450 [facility] Comment on above: Performed By: #### C BC ####[facility] Jegbjpagfm2366[address] [place], [place] [address]Dr. Grace Best RBC 3.74 106/ul Critically low 4.20-5.40 [facility] Comment on above: Performed By: #### C BC ####[facility] Ggestlpsqf8610 [place] [address]Dr. Grace Best WBC 8.0 103/ul Normal 4.0-11.0 [facility] Comment on above: Performed By: #### C BC ####[facility] Qkghzpdlhu7139 [place] [address]Dr. Grace Best CULTURE URINEon 05-11-2022 CULTURE URINE Normal [facility] Comment on above: Performed By: #### U RCX ####[facility] Byeetopwct5167 [place] [address]Dr. Grace Best POINT OF CARE GLUCOSEon 04-17 Glucose [Mass/Vol] 214 mg/dL Critically high 74-106 [facility] Comment on above: Performed By: #### P OCGLUC ####[facility] Akgzobmgys4447 [place] [address]Dr. Grace Best Glucose [Mass/Vol] 163 mg/dL Critically high 74-106 [facility] Comment on above: Performed By: #### P OCGLUC ####[facility] Vgdmrarbno6194 [place] [address]Dr. Grace Best Glucose [Mass/Vol] 370 mg/dL Critically high 74-106 [facility] Comment on above: Performed By: #### P OCGLUC ####[facility] Imscnuucpo1543 [place] [address]Dr. Grace Best Glucose [Mass/Vol] 434 mg/dL Critically high 74-106 [facility] Comment on above: Performed By: #### P OCGLUC ####[facility] Msokfqckqe9941 [place] [address]Dr. Grace Best PROF 14(COMP METB)on 023 Albumin [Mass/Vol] 2.6 g/dL Critically low 3.4-5.0 [facility] Comment on above: Performed By: #### C MP ####[facility] Yekqbjwlbp8287 [place] [address]Dr. Grace Nasir Albumin/Globulin [Mass ratio] 0.8 {ratio} Normal [facility] Comment on above: Performed By: #### C MP ####[facility] Zwcmkjarmu4860 [place] [address]Dr. Grace Nasir ALP [Catalytic activity/Vol] 75 U/L Normal 46-116 [facility] Comment on above: Performed By: #### C MP ####[facility] Emxzgswkbr9[address] [place], [place] [address]Dr. Grace Nasir ALT [Catalytic activity/Vol] 37 U/L Normal 14-59 [facility] Comment on above: Performed By: #### C MP ####[facility] Piqhxzekae[address] [place], [place] [address]Dr. Grace Best Anion gap [Moles/Vol] 15.7 mmol/L Normal [facility] Comment on above: Performed By: #### C MP ####[facility] Wgwqerdlrs[address] [place], [place] [address]Dr. Roxannega Best AST [Catalytic activity/Vol] 28 U/L Normal 15-37 [facility] Comment on above: Performed By: #### C MP ####[facility] Dphbldvcam148[address] [place], [place] [address]Dr. Grace Best Bilirubin [Mass/Vol] 0.6 mg/dL Normal 0.2-1.0 [facility] Comment on above: Performed By: #### C MP ####[facility] Lobgiashfl530262 [address] [place], [place] [address]Dr. Grace Best Calcium [Mass/Vol] 8.5 mg/dL Normal 8.5-10.1 [facility] Comment on above: Performed By: #### C MP ####[facility] Dpkfqfcvea9[address] [place], [place] [address]Dr. Grace Best Chloride [Moles/Vol] 99 mmol/L Normal 98-107 [facility] Comment on above: Performed By: #### C MP ####[facility] Weorcuebfl020[address] [place], [place] [address]Dr. Grace Best CO2 [Moles/Vol] 21.9 mmol/L Normal 21.0-32.0 [facility] Comment on above: Performed By: #### C MP ####[facility] Fomkcdnywi7640 [place] [address]Dr. Grace Nasir Creatinine [Mass/Vol] 0.58 mg/dL Normal 0.55-1.02 [facility] Comment on above: Performed By: #### C MP ####[facility] Mxmdbpeeru9825 [place] [address]Dr. Grace Nasir EGFR-AF NORWEGIAN >60 Normal >=60 [facility] Comment on above: Performed By: #### C MP ####[facility] Uobpqdkgiw975[address] [place], [place] [address]Dr. Roxannega Nasir EGFR-NON AF NORWEGIAN >60 Normal >=60 [facility] Comment on above: Performed By: #### C MP ####[facility] Raggsldwbe7916[address] [place], [place] [address]Dr. Roxannega Best Globulin (S) [Mass/Vol] 3.3 g/dL Normal [facility] Comment on above: Performed By: #### C MP ####[facility] Sojfxppuuu58[address] [place], [place] [address]Dr. Grace Nasir Glucose [Mass/Vol] 457 mg/dL Critically high 74-106 [facility] Comment on above: Performed By: #### C MP ####[facility] Ghxpotexiv300[address] [place], [place] [address]Dr. Grace Best Potassium [Moles/Vol] 3.6 mmol/L Normal 3.5-5.1 [facility] Comment on above: Performed By: #### C MP ####[facility] Fjwcrruhfw8[address] [place], [place] [address]Dr. Grace Best Protein [Mass/Vol] 5.9 g/dL Critically low 6.4-8.2 [facility] Comment on above: Performed By: #### C MP ####[facility] Vvezujvjwv9525[address] [place], [place] [address]Dr. Grace Best Sodium [Moles/Vol] 133 mmol/L Critically low 136-145 [facility] Comment on above: Performed By: #### C MP ####[facility] Zqulzwcogo20[address] [place], [place] [address]Dr. Grace Best Urea nitrogen [Mass/Vol] 24.0 mg/dL Critically high 7.0-18.0 [facility] Comment on above: Performed By: #### C MP ####[facility] Ochqhjkumm859[address] [place], [place] [address]Dr. Grace Best Urea nitrogen/Creatinine [Mass ratio] 41.4 mg/mg Normal [facility] Comment on above: Performed By: #### C MP ####[facility] Ydqjaqsovy9[address] [place], [place] [address]Dr. Grace Best AMMONIAon 05-10-2022 Ammonia (P) [Moles/Vol] 19 umol/L Normal 11-32 [facility] Comment on above: Performed By: #### A MM ####[facility] Iodiljsmvc23[address] [place], [place] [address]Dr. Grace Best BNPon 05-10-2022 Natriuretic peptide B (Bld) [Mass/Vol] 359.0 pg/mL Normal <=900.0 [facility] Comment on above: Performed By: #### B FLIGHT OPERATIONS ENGINEER, CMP ####[facility] Uqduvpijqp9[address] [place], [place] [address]Dr. Grace Best CBC AUTO DIFFon 05-10-2022 BASO # 0.0 103/ul Normal 0.0-0.1 [facility] Comment on above: Performed By: #### C BC ####[facility] Jywdssddhk96[address] [place], [place] [address]Dr. Grace Best Basophils/100 WBC (Bld) 0.1 % Critically low 0.2-2.0 [facility] Comment on above: Performed By: #### C BC ####[facility] Qjhizgosku669[address] [place], [place] [address]Dr. Grace Best EO # 0.0 103/ul Normal 0.0-0.7 [facility] Comment on above: Performed By: #### C BC ####[facility] Uhjxbfsxts4712 [place] [id number]. Grace Best Eosinophils/100 WBC (Bld) 0.1 % Critically low 0.9-7.0 [facility] Comment on above: Performed By: #### C BC ####[facility] Nswgipusst9340 [place] [address]Dr. Grace Best Erythrocyte distribution width (RBC) [Ratio] 16.2 % Critically high 11.0-15.0 [facility] Comment on above: Performed By: #### C BC ####[facility] Smwbqwqwwc74[address] [place], [place] [address]Dr. Grace Best Hematocrit (Bld) [Volume fraction] 32.6 % Critically low 36.0-48.0 [facility] Comment on above: Performed By: #### C BC ####[facility] Ebflcczwll55[address] [place], [place] [address]Dr. Grace Best Hemoglobin (Bld) [Mass/Vol] 10.5 g/dL Critically low 12.0-16.0 [facility] Comment on above: Performed By: #### C BC ####[facility] Dizftutksl17[address] [place], [place] [address]Dr. Grace Best IG # 0.04 10e3/ul Critically high 0.00-0.03 [facility] Comment on above: Performed By: #### C BC ####[facility] Rjudwtqwow4790[address] [place], [place] [address]Dr. Grace Best IG % 0.4 % Normal 0.0-0.5 [facility] Comment on above: Performed By: #### C BC ####[facility] Xdiporbrua[address] [place], [place] [address]Dr. Grace Best LYMPH # 1.1 103/ul Critically low 1.2-3.8 [facility] Comment on above: Performed By: #### C BC ####[facility] Zbuvfqvpbz25[address] [place], [place] [address]Dr. Grace Best Lymphocytes/100 WBC (Bld) 12.7 % Critically low 20.5-60.0 [facility] Comment on above: Performed By: #### C BC ####[facility] Unngyzdyzz1052 [place] [id number]. Grace Best MANUAL DIFF REQ NO Normal [facility] Comment on above: Performed By: #### C BC ####[facility] Gaswaqiwoe1185 [place] [id number]. Grace Best MCH (RBC) [Entitic mass] 29.2 pg Normal 26.7-34.0 [facility] Comment on above: Performed By: #### C BC ####[facility] Zlxyjrycze7950 [place] [phone]. Grace Best MCHC (RBC) [Mass/Vol] 32.2 g/dL Normal 29.9-35.2 [facility] Comment on above: Performed By: #### C BC ####[facility] Pnfbvwxcyk2226 [place] [address]Dr. Grace Best MCV (RBC) [Entitic vol] 90.6 fL Normal 81.0-99.0 [facility] Comment on above: Performed By: #### C BC ####[facility] Kslinbheop16[address] [place], [place] [address]Dr. Grace Best MONO # 0.5 103/ul Normal 0.3-0.8 [facility] Comment on above: Performed By: #### C BC ####[facility] Xjjabqscgl5676 [place] [address]Dr. Grace Best Monocytes/100 WBC (Bld) 5.6 % Normal 1.7-12.0 [facility] Comment on above: Performed By: #### C BC ####[facility] Pbjtfcqnae9379 [place] [phone]. Grace Best NEUT # 7.2 103/ul Critically high 1.4-6.5 [facility] Comment on above: Performed By: #### C BC ####[facility] Leoiyowkgz7381 [place] [phone]. Grace Best Neutrophils/100 WBC (Bld) 81.1 % Critically high 43.0-75.0 [facility] Comment on above: Performed By: #### C BC ####[facility] Dfyvvqtwvl0550 [place] [phone] Best Platelet mean volume (Bld) [Entitic vol] 9.3 fL Critically low 9.5-13.5 [facility] Comment on above: Performed By: #### C BC ####[facility] Onlmkixgrs3521 [place] [address]DrGiancarlo Best PLT 320 103/ul Normal 150-450 [facility] Comment on above: Performed By: #### C BC ####[facility] Exjxjujtqt4320 [place] [phone] Best RBC 3.60 106/ul Critically low 4.20-5.40 [facility] Comment on above: Performed By: #### C BC ####[facility] Awbljllems4303 [place] [address]DrGiancarlo Best WBC 8.9 103/ul Normal 4.0-11.0 [facility] Comment on above: Performed By: #### C BC ####[facility] Yxjomocxcw7588 [place] [address]Dr. Grace Best CRPon 05-10-2022 CRP 0.7 mg/dL Normal <=1.0 [facility] Comment on above: Performed By: #### C RP ####[facility] Hxfluaukto17[address] [place], [place] [address]Dr. rGace Best MRI BRAIN WO CONon 3 MRI BRAIN WO CON Normal [facility] POINT OF CARE GLUCOSEon 04-17 Glucose [Mass/Vol] 324 mg/dL Critically high 74-106 [facility] Comment on above: Performed By: #### P OCGLUC ####[facility] Iswqvlpuff2551 [place] [address]DrGiancarlo Best Glucose [Mass/Vol] 243 mg/dL Critically high 74-106 [facility] Comment on above: Performed By: #### P OCGLUC ####[facility] Wfvbabyehu3009 [place] [address]Dr. Grace Best PROF 14(COMP METB)on 023 Albumin [Mass/Vol] 2.3 g/dL Critically low 3.4-5.0 [facility] Comment on above: Performed By: #### B FLIGHT OPERATIONS ENGINEER, CMP ####[facility] Qaeqgsjmqr3841 [place] [phone]. Grace Best Albumin/Globulin [Mass ratio] 0.8 {ratio} Normal [facility] Comment on above: Performed By: #### B FLIGHT OPERATIONS ENGINEER, CMP ####[facility] Lspibsdaft2222 [place] [address]Dr. Grace Best ALP [Catalytic activity/Vol] 73 U/L Normal 46-116 [facility] Comment on above: Performed By: #### B FLIGHT OPERATIONS ENGINEER, CMP ####[facility] Ftlwkpigfr0798 [place] [address]Dr. Grace Best ALT [Catalytic activity/Vol] 13 U/L Critically low 14-59 [facility] Comment on above: Performed By: #### B FLIGHT OPERATIONS ENGINEER, CMP ####[facility] Fkydgxelnm3364 [place] [address]Dr. Grace Best Anion gap [Moles/Vol] 11.6 mmol/L Normal [facility] Comment on above: Performed By: #### B FLIGHT OPERATIONS ENGINEER, CMP ####[facility] Ybcfvuynog1059 [place] [address]Dr. Grace Best AST [Catalytic activity/Vol] 8 U/L Critically low 15-37 [facility] Comment on above: Performed By: #### B FLIGHT OPERATIONS ENGINEER, CMP ####[facility] Byvivhoyqc2716 [place] [address]Dr. Grace Best Bilirubin [Mass/Vol] 0.7 mg/dL Normal 0.2-1.0 [facility] Comment on above: Performed By: #### B FLIGHT OPERATIONS ENGINEER, CMP ####[facility] Lxdloejtnv8274 [place] [address]Dr. Grace Best Calcium [Mass/Vol] 8.5 mg/dL Normal 8.5-10.1 [facility] Comment on above: Performed By: #### B FLIGHT OPERATIONS ENGINEER, CMP ####[facility] Qibtpqoowc8076 [place] [phone]. Grace Best Chloride [Moles/Vol] 104 mmol/L Normal 98-107 [facility] Comment on above: Performed By: #### B FLIGHT OPERATIONS ENGINEER, CMP ####[facility] Hrdfwsplnv9547 [place] [phone]. Grace Best CO2 [Moles/Vol] 20.5 mmol/L Critically low 21.0-32.0 [facility] Comment on above: Performed By: #### B FLIGHT OPERATIONS ENGINEER, CMP ####[facility] Ddvnupzluu7691 [place] [address]Dr. Grace Best Creatinine [Mass/Vol] 0.55 mg/dL Normal 0.55-1.02 [facility] Comment on above: Performed By: #### B FLIGHT OPERATIONS ENGINEER, CMP ####[facility] Kstajurcgq350[address] [place], [place] [address]Dr. Grace Best EGFR-AF NORWEGIAN >60 Normal >=60 [facility] Comment on above: Performed By: #### B FLIGHT OPERATIONS ENGINEER, CMP ####[facility] Gvpflpkgjj065[address] [place], [place] [address]Dr. Grace Best EGFR-NON AF NORWEGIAN >60 Normal >=60 [facility] Comment on above: Performed By: #### B FLIGHT OPERATIONS ENGINEER, CMP ####[facility] Mdmfccvmaj437[address] [place], [place] [address]Dr. Grace Best Globulin (S) [Mass/Vol] 2.8 g/dL Normal [facility] Comment on above: Performed By: #### B FLIGHT OPERATIONS ENGINEER, CMP ####[facility] Ejrxhrmzlc2[address] [place], [place] [id number]. Grace Best Glucose [Mass/Vol] 194 mg/dL Critically high 74-106 [facility] Comment on above: Performed By: #### B FLIGHT OPERATIONS ENGINEER, CMP ####[facility] Kggxrzvrmj9830[address] [place], [place] [address]Dr. Grace Best Potassium [Moles/Vol] 3.1 mmol/L Critically low 3.5-5.1 [facility] Comment on above: Performed By: #### B FLIGHT OPERATIONS ENGINEER, CMP ####[facility] Pxzoocqcag8680[address] [place], [place] [address]Dr. Grace Best Protein [Mass/Vol] 5.1 g/dL Critically low 6.4-8.2 Th [facility] Comment on above: Performed By: #### B FLIGHT OPERATIONS ENGINEER, CMP ####[facility] Zkrzenczbr3223[address] [place], [place] [address]Dr. Grace Best Sodium [Moles/Vol] 133 mmol/L Critically low 136-145 Th [facility] Comment on above: Performed By: #### B FLIGHT OPERATIONS ENGINEER, CMP ####[facility] Djhezitrru9864[address] [place], [place] [address]Dr. Grace Best Urea nitrogen [Mass/Vol] 30.0 mg/dL Critically high 7.0-18.0 [facility] Comment on above: Performed By: #### B FLIGHT OPERATIONS ENGINEER, CMP ####[facility] Clvjxzkdsz354[address] [place], [place] [address]Dr. Grace Best Urea nitrogen/Creatinine [Mass ratio] 54.5 mg/mg Normal [facility] Comment on above: Performed By: #### B FLIGHT OPERATIONS ENGINEER, CMP ####[facility] Xwqgqxoufx11[address] [place], [place] [address]Dr. Grace Best [facility] 22 mm/hr Normal <=30 [facility] Comment on above: Performed By: #### S EDR ####[facility] Cwmvzcnidl[address] [place], [place] [address]Dr. Grace Best VIT B12 AND FOLATEon 023 Cobalamin (Vitamin B12) [Mass/Vol] 387.0 pg/mL Normal 193.0-986.0 [facility] Comment on above: Performed By: #### B 12FOL ####[facility] Siecnbulkp[address] [place], [place] [address]Dr. Grace Best FOLATE 9.70 ng/mL Normal 8.60-58.90 [facility] Comment on above: Performed By: #### B 12FOL ####[facility] Gkkdfifrsq56[address] [place], [place] [address]Dr. Grace Best BNPon 05-09-2022 Natriuretic peptide B (Bld) [Mass/Vol] 289.0 pg/mL Normal <=900.0 [facility] Comment on above: Performed By: #### B FLIGHT OPERATIONS ENGINEER, CMP ####[facility] Nxwizyvhsg8801 [place] [address]Dr. Grace Best CBC AUTO DIFFon 05-09-2022 BASO # 0.0 103/ul Normal 0.0-0.1 [facility] Comment on above: Performed By: #### C BC ####[facility] Qsjrzrrcbp[address] [place], [place] [address]Dr. Grace Best Basophils/100 WBC (Bld) 0.1 % Critically low 0.2-2.0 [facility] Comment on above: Performed By: #### C BC ####[facility] Erfvvgywna[address] [place], [place] [address]Dr. Grace Best EO # 0.0 103/ul Normal 0.0-0.7 [facility] Comment on above: Performed By: #### C BC ####[facility] Zwtreentae[address] [place], [place] [address]Dr. Grace Best Eosinophils/100 WBC (Bld) 0.0 % Critically low 0.9-7.0 [facility] Comment on above: Performed By: #### C BC ####[facility] Echqefuxlc93[address] [place], [place] [address]Dr. Grace Best Erythrocyte distribution width (RBC) [Ratio] 16.7 % Critically high 11.0-15.0 [facility] Comment on above: Performed By: #### C BC ####[facility] Eocmhohbnf[address] [place], [place] [address]Dr. Grace Best Hematocrit (Bld) [Volume fraction] 34.9 % Critically low 36.0-48.0 [facility] Comment on above: Performed By: #### C BC ####[facility] Wpurgkkfox248[address] [place], [place] [address]Dr. Grace Best Hemoglobin (Bld) [Mass/Vol] 11.3 g/dL Critically low 12.0-16.0 [facility] Comment on above: Performed By: #### C BC ####[facility] Womosuvqhe8[address] [place] [id number]. Grace Best IG # 0.07 10e3/ul Critically high 0.00-0.03 [facility] Comment on above: Performed By: #### C BC ####[facility] Kxcovvgpid4596 [place] [id number]. Roxannega Best IG % 0.7 % Critically high 0.0-0.5 [facility] Comment on above: Performed By: #### C BC ####[facility] Wpwdanhtba76[address] [place] [address]Dr. Grace Best LYMPH # 0.7 103/ul Critically low 1.2-3.8 [facility] Comment on above: Performed By: #### C BC ####[facility] Dabajmqoea2599 [place] [address]Dr. Grace Best Lymphocytes/100 WBC (Bld) 6.6 % Critically low 20.5-60.0 [facility] Comment on above: Performed By: #### C BC ####[facility] Lrenxoecfn0109 [place] [address]Dr. Grace Best MANUAL DIFF REQ NO Normal [facility] Comment on above: Performed By: #### C BC ####[facility] Lafvaxqxeu0966 [place] [address]Dr. Roxannega Best MCH (RBC) [Entitic mass] 29.2 pg Normal 26.7-34.0 [facility] Comment on above: Performed By: #### C BC ####[facility] Ijdepgeeos6817 [place] [address]Dr. Grace Nasir MCHC (RBC) [Mass/Vol] 32.4 g/dL Normal 29.9-35.2 [facility] Comment on above: Performed By: #### C BC ####[facility] Fgwxrcranw8211 [place] [id number]. Grace Best MCV (RBC) [Entitic vol] 90.2 fL Normal 81.0-99.0 [facility] Comment on above: Performed By: #### C BC ####[facility] Vgunmxlpvp6679 [place] [id number]. Grace Best MONO # 0.5 103/ul Normal 0.3-0.8 [facility] Comment on above: Performed By: #### C BC ####[facility] Wncjwwgokc3301 [place] [id number]. Grace Best Monocytes/100 WBC (Bld) 4.5 % Normal 1.7-12.0 [facility] Comment on above: Performed By: #### C BC ####[facility] Timhsomnym3421 [place] [id number]. Grace Best NEUT # 9.5 103/ul Critically high 1.4-6.5 [facility] Comment on above: Performed By: #### C BC ####[facility] Xaoiizaiqh4416 [place] [address]Dr. Grace Best Neutrophils/100 WBC (Bld) 88.1 % Critically high 43.0-75.0 [facility] Comment on above: Performed By: #### C BC ####[facility] Vkaditzfap1734 [place] [address]Dr. Grace Best Platelet mean volume (Bld) [Entitic vol] 9.6 fL Normal 9.5-13.5 [facility] Comment on above: Performed By: #### C BC ####[facility] Entjwgbipi4910 [place] [address]Dr. Grace Best PLT 354 103/ul Normal 150-450 [facility] Comment on above: Performed By: #### C BC ####[facility] Dbswmdneei9370 [place] [id number]. Grace Best RBC 3.87 106/ul Critically low 4.20-5.40 [facility] Comment on above: Performed By: #### C BC ####[facility] Sknleiadgr5532 [place] [phone]. Grace Best WBC 10.7 103/ul Normal 4.0-11.0 [facility] Comment on above: Performed By: #### C BC ####[facility] Miliazodhn4949 [place] [address]Dr. Grace Best OCC BLD IMMUNOASSAYon 2022 OCCULT BLOOD Negative Normal NEGATIVE [facility] Comment on above: Performed By: #### O KRISTA ####[facility] Wwkyfzejbv3729 [place] [address]Dr. Grace Best POINT OF CARE GLUCOSEon 04-17 Glucose [Mass/Vol] 362 mg/dL Critically high 74-106 [facility] Comment on above: Performed By: #### P OCGLUC ####[facility] Nbasytvljh7[address] [place], [place] [address]Dr. Grace Best Glucose [Mass/Vol] 523 mg/dL Critically high -106 [facility] Comment on above: Result Comment: Prev iously Confirmed Performed By: #### P OCGLUC ####[facility] Lwkppgkbot9[address] [place], [place] [address]Dr. Grace Best Glucose [Mass/Vol] 374 mg/dL Critically high -106 [facility] Comment on above: Performed By: #### P OCGLUC ####[facility] Qwtotccsbe376[address] [place], [place] [address]Dr. Grace Best PROF 14(COMP METB)on 023 Albumin [Mass/Vol] 3.0 g/dL Critically low 3.4-5.0 [facility] Comment on above: Performed By: #### B FLIGHT OPERATIONS ENGINEER, CMP ####[facility] Dtcnlitiaa1466[address] [place], [place] [address]Dr. Grace Best Albumin/Globulin [Mass ratio] 0.9 {ratio} Normal [facility] Comment on above: Performed By: #### B FLIGHT OPERATIONS ENGINEER, CMP ####[facility] Mkpdfbiqhy67[address] [place], [place] [address]Dr. Grace Best ALP [Catalytic activity/Vol] 98 U/L Normal 46-116 [facility] Comment on above: Performed By: #### B FLIGHT OPERATIONS ENGINEER, CMP ####[facility] Dletikgxfx7369[address] [place], [place] [address]Dr. Grace Best ALT [Catalytic activity/Vol] 15 U/L Normal 14-59 [facility] Comment on above: Performed By: #### B FLIGHT OPERATIONS ENGINEER, CMP ####[facility] Cnduiegkmx897[address] [place], [place] [address]Dr. Grace Best Anion gap [Moles/Vol] 26.0 mmol/L Normal [facility] Comment on above: Performed By: #### B FLIGHT OPERATIONS ENGINEER, CMP ####[facility] Kvlgxmuvhw410[address] [place], [place] [address]Dr. Grace Best AST [Catalytic activity/Vol] 8 U/L Critically low 15-37 [facility] Comment on above: Performed By: #### B FLIGHT OPERATIONS ENGINEER, CMP ####[facility] Oyckvovfkk97[address] [place], [place] [address]Dr. Grace Best Bilirubin [Mass/Vol] 1.2 mg/dL Critically high 0.2-1.0 [facility] Comment on above: Performed By: #### B FLIGHT OPERATIONS ENGINEER, CMP ####[facility] Irzicukooo[address] [place], [place] [address]Dr. Grace Best Calcium [Mass/Vol] 9.3 mg/dL Normal 8.5-10.1 [facility] Comment on above: Performed By: #### B FLIGHT OPERATIONS ENGINEER, CMP ####[facility] Qbitvjwbvo687[address] [place], [place] [address]Dr. Grace Best Chloride [Moles/Vol] 100 mmol/L Normal 98-107 [facility] Comment on above: Performed By: #### B FLIGHT OPERATIONS ENGINEER, CMP ####[facility] Kmszttudan7067[address] [place], [place] [address]Dr. Grace Best CO2 [Moles/Vol] 12.4 mmol/L Critically low 21.0-32.0 [facility] Comment on above: Performed By: #### B FLIGHT OPERATIONS ENGINEER, CMP ####[facility] Fyzywkwhdi773[address] [place], [place] [address]Dr. Grace Best Creatinine [Mass/Vol] 0.89 mg/dL Normal 0.55-1.02 [facility] Comment on above: Performed By: #### B FLIGHT OPERATIONS ENGINEER, CMP ####[facility] Apiiwqowpq0180 [place] [address]Dr. Grace Best EGFR-AF NORWEGIAN >60 Normal >=60 [facility] Comment on above: Performed By: #### B FLIGHT OPERATIONS ENGINEER, CMP ####[facility] Iijuxmqzrh[address] [place], [place] [address]Dr. Grace Best EGFR-NON AF NORWEGIAN >60 Normal >=60 [facility] Comment on above: Performed By: #### B FLIGHT OPERATIONS ENGINEER, CMP ####[facility] Obtesxccrj428[address] [place], [place] [address]Dr. Grace Best Globulin (S) [Mass/Vol] 3.4 g/dL Normal [facility] Comment on above: Performed By: #### B FLIGHT OPERATIONS ENGINEER, CMP ####[facility] Tbopepxkpi612[address] [place], [place] [address]Dr. Grace Best Glucose [Mass/Vol] 544 mg/dL Critically high 74-106 [facility] Comment on above: Performed By: #### B FLIGHT OPERATIONS ENGINEER, CMP ####[facility] Cddyrvjdrl05[address] [place], [place] [address]Dr. Grace Best Potassium [Moles/Vol] 4.4 mmol/L Normal 3.5-5.1 [facility] Comment on above: Performed By: #### B FLIGHT OPERATIONS ENGINEER, CMP ####[facility] Lnriztbeis[address] [place], [place] [address]Dr. Grace Best Protein [Mass/Vol] 6.4 g/dL Normal 6.4-8.2 [facility] Comment on above: Performed By: #### B FLIGHT OPERATIONS ENGINEER, CMP ####[facility] Pdyqoqdkbd7[address] [place], [place] [address]Dr. Grace Best Sodium [Moles/Vol] 134 mmol/L Critically low 136-145 [facility] Comment on above: Performed By: #### B FLIGHT OPERATIONS ENGINEER, CMP ####[facility] Kjploamvsy88[address] [place], [place] [address]Dr. Grace Best Urea nitrogen [Mass/Vol] 26.0 mg/dL Critically high 7.0-18.0 [facility] Comment on above: Performed By: #### B FLIGHT OPERATIONS ENGINEER, CMP ####[facility] Exncybmefr[address] [place], [place] [address]Dr. Grace Best Urea nitrogen/Creatinine [Mass ratio] 29.2 mg/mg Normal [facility] Comment on above: Performed By: #### B FLIGHT OPERATIONS ENGINEER, CMP ####[facility] Hhpggdrbxb7023 [place] [address]Dr. Grace Best ACETONE SERUMon 05-08-2022 ACETONE Negative Normal NEGATIVE [facility] Comment on above: Performed By: #### A CETON ####[facility] Ogtnhtxrri[address] [place], [place] [address]Dr. Grace Best BNPon 05-08-2022 Natriuretic peptide B (Bld) [Mass/Vol] 169.0 pg/mL Normal <=900.0 [facility] Comment on above: Performed By: #### C MP, BNP, CMADM ####[facility] Upmnrcxzsi665[address] [place], [place] [address]Dr. Grace Best CARDIAC ALY 3-6on 3 CK [Catalytic activity/Vol] 23 U/L Critically low 26-192 [facility] Comment on above: Performed By: #### C MREP ####[facility] Ussazzzlxu[address] [place], [place] [address]Dr. Grace Best CK.MB [Mass/Vol] ng/mL Normal <=3.60 [facility] Comment on above: Performed By: #### C MREP ####[facility] Brwqmfejud8[address] [place], [place] [address]Dr. Grace Best HSTROP 8.7 pg/mL Normal 4.0-51.3 [facility] Comment on above: Result Comment: CUT- OFF POINTS HAVE BEEN ESTABLISHED BASED ON THE FOURTH UNIVERSAL DEFINITIONS OF MYOCARDIALINFARCTION. THE UPPER REFERENCE LIMIT (URL) OF TROPONIN, DEFINED THE 99TH PERCENTILE OFcTnI DISTRIBUTION IN A REFERENCE POPULATION, HAS BEEN CONFIRMED THE DECISION THRESHOLDFOR [place] DIAGNOSIS. Performed By: #### C MREP ####[facility] Tfcufqjqmp[address] [place], [place] [address]Dr. Grace Best CK [Catalytic activity/Vol] 24 U/L Critically low 26-192 [facility] Comment on above: Performed By: #### C MREP ####[facility] Aydqqncvem9195 [place] [address]Dr. Grace Best CK.MB [Mass/Vol] ng/mL Normal <=3.60 [facility] Comment on above: Performed By: #### C MREP ####[facility] Eqfprsnsfn1363 [place] [address]Dr. Grace Best HSTROP 8.8 pg/mL Normal 4.0-51.3 [facility] Comment on above: Result Comment: CUT- OFF POINTS HAVE BEEN ESTABLISHED BASED ON THE FOURTH UNIVERSAL DEFINITIONS OF MYOCARDIALINFARCTION. THE UPPER REFERENCE LIMIT (URL) OF TROPONIN, DEFINED THE 99TH PERCENTILE OFcTnI DISTRIBUTION IN A REFERENCE POPULATION, HAS BEEN CONFIRMED THE DECISION THRESHOLDFOR [place] DIAGNOSIS. Performed By: #### C MREP ####[facility] Mmqmjaedkj[address] [place], [place] [address]Dr. Grace Best CARDIAC ALY ADMITon 023 CK [Catalytic activity/Vol] 32 U/L Normal 26-192 [facility] Comment on above: Performed By: #### C MP, BNP, CMADM ####[facility] Akkssznnwm01[address] [place], [place] [address]Dr. Grace Best CK.MB [Mass/Vol] ng/mL Normal <=3.60 [facility] Comment on above: Performed By: #### C MP, BNP, CMADM ####[facility] Xdkdsssntc93[address] [place], [place] [address]Dr. Grace Best HSTROP 7.3 pg/mL Normal 4.0-51.3 [facility] Comment on above: Result Comment: CUT- OFF POINTS HAVE BEEN ESTABLISHED BASED ON THE FOURTH UNIVERSAL DEFINITIONS OF MYOCARDIALINFARCTION. THE UPPER REFERENCE LIMIT (URL) OF TROPONIN, DEFINED THE 99TH PERCENTILE OFcTnI DISTRIBUTION IN A REFERENCE POPULATION, HAS BEEN CONFIRMED THE DECISION THRESHOLDFOR [place] DIAGNOSIS. Performed By: #### C MP, BNP, CMADM ####[facility] Pmslyiywej8539 [place] [address]Dr. Grace Best CORRY 19 ng/mL Normal 9-82 [facility] Comment on above: Performed By: #### C MP, BNP, CMADM ####[facility] Tvrmovaoyc6175 [place] [address]Dr. Grace Best CBC W MANUAL DIFFon 05-08-19 ANISOCYTOSIS SLIGHT Normal [facility] Comment on above: Performed By: #### C MYRLTE ####[facility] Pzdyhmijsw2878 [place] [address]Dr. Grace Best ATYPICAL LYMPH # Normal [facility] Comment on above: Performed By: #### C BCARIAN ####[facility] Lkhxcnfmqg8[address] [place], [place] [address]Dr. Yiga Best ATYPICAL LYMPH % Normal [facility] Comment on above: Performed By: #### C MYRTLE ####[facility] Gvhnmqygap[address] [place], [place] [address]Dr. Grace Best BAND # Normal 0.0-0.3 [facility] Comment on above: Performed By: #### C MYRTLE ####[facility] Fqetjiscoi38[address] [place], [place] [address]Dr. Yiga Best BAND % Normal 0-5 [facility] Comment on above: Performed By: #### C MYRTLE ####[facility] Aawulzfwhz34[address] [place], [place] [address]Dr. Grace Best BASOM # 0.00 103/ul Normal 0.00-0.10 [facility] Comment on above: Performed By: #### C MYRTLE ####[facility] Cxtwdzvabe[address] [place], [place] [address]Dr. Grace Best BASOM % 0.0 % Critically low 0.2-2.0 [facility] Comment on above: Performed By: #### C BCARIAN ####[facility] Yhiqgarcmy[address] [place], [place] [address]Dr. Roxannelan Best BLAST # Normal [facility] Comment on above: Performed By: #### C MYRTLE ####[facility] Brzibbuguy00[address] [place], [place] [address]Dr. Yilan Best BLAST % Normal [facility] Comment on above: Performed By: #### C BCARIAN ####[facility] Lmtrauucbx1903 [place], [place] [address]Us. Grace Best CORRECTED WBC Normal 4.0-11.0 [facility] Comment on above: Performed By: #### C MYRTLE ####[facility] Dbzbswqthm8086 [place], [place] [address]Pc. Grace Best EOS # 0.00 103/ul Normal 0.00-0.70 [facility] Comment on above: Performed By: #### C MYRTLE ####[facility] Dgkdyowhdb5674 [place] [phone]. Grace Best EOS% 0.0 % Critically low 0.9-7.0 [facility] Comment on above: Performed By: #### C MYRTLE ####[facility] Iwlqmygonu9221 [place] [phone]. Grace Best HCT 41.1 % Normal 36.0-48.0 [facility] Comment on above: Performed By: #### C MYRTLE ####[facility] Yaqrkqechm3817 [place] [phone]. Grace Best HGB 14.1 g/dl Normal 12.0-16.0 [facility] Comment on above: Performed By: #### C MYRTLE ####[facility] Kocjcrewiz2619 [place] [phone]. Grace Best LYMPHM # 1.09 103/ul Critically low 1.20-3.80 [facility] Comment on above: Performed By: #### C MYRTLE ####[facility] Yjdxkdncso9610 [place] [phone]. Grace Best LYMPHM% 11.0 % Critically low 20.5-60.0 [facility] Comment on above: Performed By: #### C MYRTLE ####[facility] Vzeoazkyjl7205 [place] [phone]. Grace Best MCH 29.0 pg Normal 26.7-34.0 [facility] Comment on above: Performed By: #### C MYRTLE ####[facility] Psjlpnosyp[address] [place], [place] [address]Dr. Grace Best MCHC 34.3 g/dl Normal 29.9-35.2 [facility] Comment on above: Performed By: #### C MYRTLE ####[facility] Ikjvedhtff9823 [place] [phone]. Grace Best MCV 84.4 fL Normal 81.0-99.0 [facility] Comment on above: Performed By: #### C MYRTLE ####[facility] Jmlpxkzsgy4643 [place] [phone]. Grace Best METAMYELOCYTE # Normal [facility] Comment on above: Performed By: #### C MYRTLE ####[facility] Oocqafdnim8575 [place] [phone]. Grace Best METAMYELOCYTE % Normal [facility] Comment on above: Performed By: #### C MYRTLE ####[facility] Xptqwqmjhl3646 [place] [phone]. Grace Best MONOM# 0.40 103/ul Normal 0.30-0.80 [facility] Comment on above: Performed By: #### C MYRTLE ####[facility] Yhrqwroext1025 [place] [phone]. Grace Best MONOM% 4.0 % Normal 1.7-12.0 [facility] Comment on above: Performed By: #### C MYRTLE ####[facility] Jusqdjaxvm6257 [place] [phone]. Grace Best MPV 8.8 fL Critically low 9.5-13.5 [facility] Comment on above: Performed By: #### C MYRTLE ####[facility] Nkyfllwdbr7564 [place] [phone]. Grace Best MYELOCYTE # Normal [facility] Comment on above: Performed By: #### C MYRTLE ####[facility] Nhsarqvsaq9064 [place] [id number]. Grace Best MYELOCYTE % Normal [facility] Comment on above: Performed By: #### C MYRTLE ####[facility] Fsqwnevwld8660 [place] [phone]. Grace Best NRBC Normal [facility] Comment on above: Performed By: #### C MYRTLE ####[facility] Gakzoqshri0990 [place], [place] [address]Bx. Grace Best PLT 402 103/ul Normal 150-450 [facility] Comment on above: Performed By: #### C MYRTLE ####[facility] Zvxxzivlxu5384 [place], [place] [address]Ne. Grace Best RBC 4.87 106/ul Normal 4.20-5.40 [facility] Comment on above: Performed By: #### C MYRTLE ####[facility] Gwtcpgerco7774 [place], [place] [address]Fq. Grace Best RDW 16.2 % Critically high 11.0-15.0 [facility] Comment on above: Performed By: #### C MYRTLE ####[facility] Ncvkningxo0531 [place] [phone]. Grace Best SEG # 8.41 103/ul Critically high 1.40-6.50 [facility] Comment on above: Performed By: #### C MYRTLE ####[facility] Vbweitgxib5965 [place], [place] [address]Ro. Grace Best SEG % 85.0 % Critically high 43.0-75.0 [facility] Comment on above: Performed By: #### C MYRTLE ####[facility] Giudybohyz2346 [place] [phone]. Grace Best WBC 9.9 103/ul Normal 4.0-11.0 [facility] Comment on above: Performed By: #### C MYRTLE ####[facility] Pigvbwmtov9471 [place], [place] [address]Wd. [address] HEAD WO CONon 05-08-2022 CT HEAD WO CON Normal [facility] CULTURE BLOODon 05-08-2022 Microscopic examination of blood, culture Culture Observations: NO GROWTH AT 5 DAYS. Normal [facility] Comment on above: Performed By: #### B LDCX2 ####[facility] Qmrzbfgyag6480 [place] [phone]. Grace Best Microscopic examination of blood, culture Culture Observations: NO GROWTH AT 5 DAYS. Normal [facility] Comment on above: Performed By: #### B LDCX1 ####[facility] Kqkwgnuxgi9054 [place] [address]DrGiancarlo Grace Best Microscopic examination of blood, culture Culture Observations: NO GROWTH AT 5 DAYS. Normal [facility] Comment on above: Performed By: #### B LDCX1 ####[facility] Oqveeuulbh9808 [place] [address]Dr. Grace Nasir Covid-19 PCR (CVDTBH)on 04-17 SARS-CoV-2 (COVID-19) RNA LOUISE+probe Ql (Unsp spec) Not detected Normal NOT DETECTED [facility] Comment on above: Result Comment: When diagnostic testing is negative, the possibility of a false negative should be considered inthe context of a patient's recent exposures and the presence of clinical signs and symptomsconsistent with SARS-CoV-2.This test is not yet approved or cleared by the [place] FDA. When there are no FDA-approved or cleared tests available, and other criteria are met, FDA can make tests available under an emergency access mechanism called an Emergency Use Authorization (EUA). The EUA for this test is supported by the [employer] Health and Human Service's declaration that circumstances exist to justify the emergency use of in vitro diagnostics for the detection and/or diagnosis of the virus that causes COVID-19. This EUA will remain in effect for the duration of the COVID-19 declaration justifying emergency of IVDs, unless it is terminated or revoked by the FDA (after which the test may no longer be used). Performed By: #### C VDTBH ####[facility] Bgdzfumaae2944 [place] [phone] Best D-DIMERon 05-08-2022 D-DIMER 0.38 mg/L FEU Normal <=0.59 [facility] Comment on above: Performed By: #### D DIM ####[facility] Mlahayphqv2661 [place] [phone] Best D-DIMER COMMENTS SEE BELOW Normal [facility] Comment on above: Result Comment: Incr eases in D-Dimer concentration observed with thromboembolic events can be variable due to localization, size, and age of the thrombus. Therefore, a thromboembolic event cannot be diagnosed with certainty on the basis of the reference range. D-Dimers may also be elevated for a variety of disorders including: advanced age, , coronary disease, cancer, liver disease, infection, inflammation, hematoma, DIC, trauma, post-surgery, diabetes, thrombolytic or anticoagulant therapy, stress, and generalized hospitalization. Performed By: #### D DIM ####[facility] Dajhkwlghn6535 [place] [address]Dr. ga [facility] DRUG SCREEN RAPID (URINE)on 05-08-2022 AMP Negative Normal NEGATIVE [facility] Comment on above: Performed By: #### U MICRO, ERUR, DRUGRPD ####[facility] [address]bsvkyvpvq[address] [place], [place] [address]Dr. Grace [facility] BAR Negative Normal NEGATIVE [facility] Comment on above: Performed By: #### U MICRO, ERUR, DRUGRPD ####[facility] Flhwtylxeo[address] [place], [place] [address]Dr. ga [facility] BUP Negative Normal NEGATIVE [facility] Comment on above: Performed By: #### U MICRO, ERUR, DRUGRPD ####[facility] Fdrxmpqpju[address] [place], [place] [address]Dr. Grace Best BZO Negative Normal NEGATIVE [facility] Comment on above: Performed By: #### U MICRO, ERUR, DRUGRPD ####[facility] Ocpxovcogc[address] [place], [place] [address]Dr. [facility] MATTHEW Negative Normal NEGATIVE [facility] Comment on above: Performed By: #### U MICRO, ERUR, DRUGRPD ####[facility] Xugxdabufs[address] [place], [place] [address]Dr. Grace Best CUT-OFFS SEE BELOW Normal [facility] Comment on above: Result Comment: AMP (Amphetamine): 500ng/mL, BAR (Barbituates): 200 ng/mL, BZO (Benzodiazepines): 150 ng/mL, BUP (Buprenorphine): 10 ng/mL, MATTHEW (Cocaine): 150 ng/mL, mAMP (Methamphetamine): 500 ng/mL, MTD (Methadone): 200 ng/mL, OPI (Opiates): 100 ng/mL, OXY (Oxycodone): 100 ng/mL, PCP (Phencyclidine): 25 ng/mL, PPX (Propoxyphene): 300 ng/mL, THC (Cannabinoids): 50 ng/mL, TCA (Trycyclic Antidepressants): 300 ng/mL Performed By: #### U MICRO, ERUR, DRUGRPD ####[facility] [address] [place], [place] [address]Dr. [facility] DRUG CUT HEADER DRUG CLASS TEST SYST EM CUT-OFF CONCENTRATIONS ARE FOLLOWS: Normal [facility] Comment on above: Performed By: #### U MICRO, ERUR, DRUGRPD ####[facility] Bezwrjtyyb[address] [place], [place] [address]Dr. Grace [facility] mAMP Negative Normal NEGATIVE [facility] Comment on above: Performed By: #### U MICRO, ERUR, DRUGRPD ####[facility] Vtbm[address] [place], [place] [address]Dr. ga [facility] MTD Negative Normal NEGATIVE [facility] Comment on above: Performed By: #### U MICRO, ERUR, DRUGRPD ####[facility] Xozypuisok[address] [place], [place] [address]Dr. [facility] OPI Negative Normal NEGATIVE [facility] Comment on above: Performed By: #### U MICRO, ERUR, DRUGRPD ####[facility] Ifhdytgmvt524[address] [place], [place] [address]Dr. [facility] OXY Negative Normal NEGATIVE [facility] Comment on above: Performed By: #### U MICRO, ERUR, DRUGRPD ####[facility] Lybhbvnnph[address] [place], [place] [address]Dr. [facility] PCP Negative Normal NEGATIVE [facility] Comment on above: Performed By: #### U MICRO, ERUR, DRUGRPD ####[facility] Fdlgtjuxvd[address] [place], [place] [address]Dr. [facility] PPX Negative Normal NEGATIVE [facility] Comment on above: Performed By: #### U MICRO, ERUR, DRUGRPD ####[facility] F[address]ax[address] [place] [address]Dr. Grace Best TCA Negative Normal NEGATIVE [facility] Comment on above: Performed By: #### U MICRO, ERUR, DRUGRPD ####[facility] Oebvbpfygu35[address] [place] [address]Dr. Grace Best THC Negative Normal NEGATIVE [facility] Comment on above: Performed By: #### U MICRO, ERUR, DRUGRPD ####[facility] Onwyyjxxdq97[address] [place], [place] [address]Dr. Grace Best ER URINE PROFILEon 3 Bilirubin Ql (U) Negative Normal NEGATIVE [facility] Comment on above: Performed By: #### U MICRO, ERUR, DRUGRPD ####[facility] Knrbgxcujm[address] [place], [place] [address]Dr. Grace Best Clarity (U) CLEAR Normal CLEAR [facility] Comment on above: Performed By: #### U MICRO, ERUR, DRUGRPD ####[facility] Txixfs[address]ml[address] [place], [place] [address]Dr. Grace Best Color (U) LT. YELLOW Normal YELLOW [facility] Comment on above: Performed By: #### U MICRO, ERUR, DRUGRPD ####[facility] Wugq[address] [place], [place] [address]Dr. Grace Best ERUAHD A micrscopic examination will be performed if indicated. Normal [facility] Comment on above: Performed By: #### U MICRO, ERUR, DRUGRPD ####[facility] Imarqecojd[address] [place], [place] [address]Dr. Grace Best Glucose Ql (U) >1000 Abnormal NEGATIVE [facility] Comment on above: Performed By: #### U MICRO, ERUR, DRUGRPD ####[facility] Tptdkjcx[address] [place], [place] [address]Dr. Grace Best Hemoglobin Ql (U) TRACE-INTACT Abnormal NEGATIVE [facility] Comment on above: Performed By: #### U MICRO, ERUR, DRUGRPD ####[facility] [address]ibhba[address] [place] [address]Dr. Roxannega Best Ketones Ql (U) TRACE Abnormal NEGATIVE [facility] Comment on above: Performed By: #### U MICRO, ERUR, DRUGRPD ####[facility] [address]cl[address]sszkt[address] [place] [address]Dr. Grace Best LEUKOCYTES MODERATE Abnormal NEGATIVE [facility] Comment on above: Performed By: #### U MICRO, ERUR, DRUGRPD ####[facility] Onfejtfvdr57[address] [place] [address]Dr. Grace Best Nitrite Ql (U) Negative Normal NEGATIVE [facility] Comment on above: Performed By: #### U MICRO, ERUR, DRUGRPD ####[facility] Rcxbdkbzae8402 [place] [address]Dr. Roxannega Best pH (U) 8.5 [pH] Normal 5-9 [facility] Comment on above: Performed By: #### U MICRO, ERUR, DRUGRPD ####[facility] Tnaltktcme[address] [place] [address]Dr. Roxannega Best SPEC GRAVITY 1.015 Normal 1.005-<=1.0 [facility] Comment on above: Performed By: #### U MICRO, ERUR, DRUGRPD ####[facility] Drjnepavqq[address]397 [place] [address]Dr. Grace Best UA PROTEIN Negative Normal NEGATIVE/ TRACE [facility] Comment on above: Performed By: #### U MICRO, ERUR, DRUGRPD ####[facility] Addyltnhbo6[address] [place] [address]Dr. Grace Best UR MICRO IND INDICATED Normal [facility] Comment on above: Performed By: #### U MICRO, ERUR, DRUGRPD ####[facility] Ypyfjxnmvv8777 [place] [address]Dr. Grace Best Urobilinogen Qn (U) 0.2 {Ancelmo'U}/dL Normal 0.2 - 1. 0 [facility] Comment on above: Performed By: #### U MICRO, ERUR, DRUGRPD ####[facility] Yxwp[address] [place], [place] [address]Dr. Grace Best INFLUENZA A AND B AGon 05-08 INFLUANEGH SEE BELOW Normal [facility] Comment on above: Result Comment: Nega tive for Flu A protein angiten. Infection due to Flu A cannot be ruled out. Flu A angiten in the sample may be below the detection limit of the test. Performed By: #### I NFLUAB ####[facility] [address]qf[address]vsh[address] [place], [place] [address]Dr. Grace Best INFLUBNEGH SEE BELOW Normal [facility] Comment on above: Result Comment: Nega tive for Flu B protein antigen. Infection due to Flu B cannot be ruled out. Flu B antigen in the sample may be below the detection limit of the test. Performed By: #### I NFLUAB ####[facility] Ngbovtvkqo[address] [place], [place] [address]Dr. Grace Best INFLUENZA A AG Negative Normal NEGATIVE SEE COMMENT [facility] Comment on above: Performed By: #### I NFLUAB ####[facility] J[address]vxpgzhq[address] [place], [place] [address]Dr. Grace Best INFLUENZA B AG Negative Normal NEGATIVE SEE COMMENT [facility] Comment on above: Performed By: #### I NFLUAB ####[facility] Mnfcnqjqce[address] [place], [place] [address]Dr. Grace Best LACTATE/LACTIC ACIDon 2022 Lactate [Moles/Vol] 1.9 mmol/L Normal 0.4-1.9 [facility] Comment on above: Performed By: #### L ACT ####[facility] Prucwpkgvh[address] [place], [place] [address]Dr. ga Best Lactate [Moles/Vol] 1.0 mmol/L Normal 0.4-1.9 [facility] Comment on above: Performed By: #### L ACT ####[facility] Ojzjoayrbk[address] [place], [place] [address]Dr. Grace Best Lactate [Moles/Vol] 5.3 mmol/L Critically high 0.4-1.9 [facility] Comment on above: Performed By: #### L ACT ####[facility] Eawfapcbzf[address] [place] [address]Dr. Grace Best PH VENOUS BLOODon 05-08-2022 PCO2 VENOUS 31.9 mmHg Critically low 40.0-52.0 [facility] Comment on above: Performed By: #### P HVEN ####[facility] Gyrfalekuo4[address] [place] [address]Dr. Grace Best pH VENOUS 7.359 Normal 7.330-7.430 [facility] Comment on above: Performed By: #### P HVEN ####[facility] Bxetowpqdz75[address] [place] [address]Dr. Grace Nasir POINT OF CARE GLUCOSEon 04-17 Glucose [Mass/Vol] 268 mg/dL Critically high 74-106 [facility] Comment on above: Result Comment: Will Repeat Test Performed By: #### P OCGLUC ####[facility] G[address]vfuve[address] [place], [place] [address]Dr. Grace Best Glucose [Mass/Vol] 493 mg/dL Critically high -106 [facility] Comment on above: Performed By: #### P OCGLUC ####[facility] Dylxpldbsc[address] [place], [place] [address]Dr. Grace Best Glucose [Mass/Vol] 356 mg/dL Critically high -106 [facility] Comment on above: Performed By: #### P OCGLUC ####[facility] Njwhkdxyup[address] [place], [place] [address]Dr. Grace Best PROF 14(COMP METB)on 023 Albumin [Mass/Vol] 3.8 g/dL Normal 3.4-5.0 [facility] Comment on above: Performed By: #### C MP, BNP, CMADM ####[facility] Pxvtbjulzi[address] [place] [address]Dr. Grace Nasir Albumin/Globulin [Mass ratio] 0.9 {ratio} Normal [facility] Comment on above: Performed By: #### C MP, BNP, CMADM ####[facility] Ehirrdmijw5[address] [place] [address]Dr. Grace Best ALP [Catalytic activity/Vol] 119 U/L Critically high 46-116 [facility] Comment on above: Performed By: #### C MP, BNP, CMADM ####[facility] Iwwhvpnrab48[address] [place] [address]Dr. Grace Best ALT [Catalytic activity/Vol] 18 U/L Normal 14-59 [facility] Comment on above: Performed By: #### C MP, BNP, CMADM ####[facility] Lwmmcqduen1616 [place] [address]Dr. Grace Best Anion gap [Moles/Vol] 19.0 mmol/L Normal [facility] Comment on above: Performed By: #### C MP, BNP, CMADM ####[facility] Muqwqpszsi9403 [place] [address]Dr. Grace Best AST [Catalytic activity/Vol] 13 U/L Critically low 15-37 [facility] Comment on above: Performed By: #### C MP, BNP, CMADM ####[facility] Ptmublvvun6673 [place] [address]Dr. Grace Best Bilirubin [Mass/Vol] 0.8 mg/dL Normal 0.2-1.0 [facility] Comment on above: Performed By: #### C MP, BNP, CMADM ####[facility] Vgursokdyb5493 [place] [address]Dr. Grace Best Calcium [Mass/Vol] 9.9 mg/dL Normal 8.5-10.1 [facility] Comment on above: Performed By: #### C MP, BNP, CMADM ####[facility] Kfmhzoueey5[address] [place] [address]Dr. Grace Best Chloride [Moles/Vol] 97 mmol/L Critically low 98-107 [facility] Comment on above: Performed By: #### C MP, BNP, CMADM ####[facility] Kagpqnnguy[address] [place] [address]Dr. Grace Best CO2 [Moles/Vol] 18.7 mmol/L Critically low 21.0-32.0 [facility] Comment on above: Performed By: #### C MP, BNP, CMADM ####[facility] Elatezsexb[address]494 [place] [address]Dr. Grace Best Creatinine [Mass/Vol] 0.85 mg/dL Normal 0.55-1.02 [facility] Comment on above: Performed By: #### C MP, BNP, CMADM ####[facility] Fgkyrrmoas35[address] [place] [address]Dr. Grace Best EGFR-AF NORWEGIAN >60 Normal >=60 [facility] Comment on above: Performed By: #### C MP, BNP, CMADM ####[facility] Eyfwibjdnu7045 [place] [address]Dr. Grace Best EGFR-NON AF NORWEGIAN >60 Normal >=60 [facility] Comment on above: Performed By: #### C MP, BNP, CMADM ####[facility] Dzjflgtshe40[address] [place] [address]Dr. Grace Best Globulin (S) [Mass/Vol] 4.1 g/dL Normal [facility] Comment on above: Performed By: #### C MP, BNP, CMADM ####[facility] Mcoubpwyky[address] [place], [place] [address]Dr. Grace Best Glucose [Mass/Vol] 322 mg/dL Critically high 74-106 [facility] Comment on above: Performed By: #### C MP, BNP, CMADM ####[facility] Ffntysffta[address] [place], [place] [address]Dr. Grace Best Potassium [Moles/Vol] 3.7 mmol/L Normal 3.5-5.1 [facility] Comment on above: Performed By: #### C MP, BNP, CMADM ####[facility] Afwektujmu[address] [place], [place] [address]Dr. Grace Best Protein [Mass/Vol] 7.9 g/dL Normal 6.4-8.2 [facility] Comment on above: Performed By: #### C MP, BNP, CMADM ####[facility] Xwbztkalqk[address] [place], [place] [address]Dr. Grace Best Sodium [Moles/Vol] 131 mmol/L Critically low 136-145 [facility] Comment on above: Performed By: #### C MP, BNP, CMADM ####[facility] Gzffyxgnvi0653 [place] [address]Dr. Grace Best Urea nitrogen [Mass/Vol] 22.0 mg/dL Critically high 7.0-18.0 [facility] Comment on above: Performed By: #### C MP, BNP, CMADM ####[facility] Hamyjodqiz13[address] [place] [address]Dr. Grace Best Urea nitrogen/Creatinine [Mass ratio] 25.9 mg/mg Normal [facility] Comment on above: Performed By: #### C MP, BNP, CMADM ####[facility] Skzyrpcrdc0254 [place] [address]Dr. Grace Best PROTIMEon 05-08-2022 INR Coag (PPP) [Relative time] {INR} Normal [facility] Comment on above: Performed By: #### P TT, PT ####[facility] Nvmhj[address]ftr[address] [place], [place] [address]Dr. Grace Best INR GUIDELINES SEE BELOW Normal [facility] Comment on above: Result Comment: BRANDY RED INR: 2.0 - 3.0 CONDITIONS NOT LISTED BELOW 2.5 - 3.5 FOR PROSTHETIC HEART VALVE REPLACEMENT 2.5 - 3.5 RECURRENT THROMBOSIS Performed By: #### P TT, PT ####[facility] Frvmhgdlfi[address] [place], [place] [address]Dr. Grace Best PT Coag (PPP) [Time] 9.3 s Normal 9.0-11.6 [facility] Comment on above: Performed By: #### P TT, PT ####[facility] Oyecjumqrd[address] [place], [place] [address]Dr. Grace Best PTTon 05-08-2022 aPTT Coag (Bld) [Time] 29.6 s Normal 22.3-36.2 [facility] Comment on above: Performed By: #### P TT, PT ####[facility] Asuctxpori[address] [place] [address]Dr. Grace Best TSHon 05-08-2022 TSH 0.894 uIU/mL Normal 0.358-3.740 [facility] Comment on above: Performed By: #### T SH ####[facility] Wensgcnokl[address] [place] [address]Dr. Grace Best URINE MICROSCOPIC ONLYon AMORPHOUS CRYSTALS RARE Normal [facility] Comment on above: Performed By: #### U MICRO, ERUR, DRUGRPD ####[facility] Xjsxvafrvv24[address] [place] [address]Dr. Grace Best BACTERIA TRACE Abnormal NONE SEEN [facility] Comment on above: Performed By: #### U MICRO, ERUR, DRUGRPD ####[facility] Hpcbcjoeig[address] [place] [address]Dr. Grace Best Bacteria identified Cx Nom (U) INDICATED Normal [facility] Comment on above: Performed By: #### U MICRO, ERUR, DRUGRPD ####[facility] Fqalcjdksi6734 [place] [address]Dr. Grace Best CA OX CRYSTALS RARE Normal [facility] Comment on above: Performed By: #### U MICRO, ERUR, DRUGRPD ####[facility] Utpgrhklis07[address] [place] [address]Dr. Grace Best CAST NONE SEEN Normal NONE SEEN [facility] Comment on above: Performed By: #### U MICRO, ERUR, DRUGRPD ####[facility] Ovtrzzedlt5235 [place] [address]Dr. Grace Best Crystals LM Nom (Urine sed) SEEN Abnormal NONE SEEN [facility] Comment on above: Performed By: #### U MICRO, ERUR, DRUGRPD ####[facility] Fidgfctxtg6351 [place] [address]Dr. Grace Best Epithelial cells LM Ql (Urine sed) NONE SEEN Normal NONE SEEN /RARE [facility] Comment on above: Performed By: #### U MICRO, ERUR, DRUGRPD ####[facility] Qjwxsqxliu[address] [place] [id number]. Grace Best MUCOUS NONE SEEN Normal NONE SEEN [facility] Comment on above: Performed By: #### U MICRO, ERUR, DRUGRPD ####[facility] Flxwepgsxe4041 [place] [id number]. Grace Best RBC 0-2 Normal 0-2 [facility] Comment on above: Performed By: #### U MICRO, ERUR, DRUGRPD ####[facility] Urqtnvhrdz9822 [place] [id number]. Grace Best TRIPLE PHOS CRYSTALS FEW Normal [facility] Comment on above: Performed By: #### U MICRO, ERUR, DRUGRPD ####[facility] Cdmbxnvstd5200 [place] [address]Dr. Grace Best WBC 5-10 Abnormal NONE SEEN [facility] Comment on above: Performed By: #### U MICRO, ERUR, DRUGRPD ####[facility] Kdgdkeytqs0436 [place] [address]Dr. Grace Best XR CHEST 1 Von 05-08-2022 XR CHEST 1 V Normal [facility] CT CHEST W IVCONon CT CHEST W IVCON * * *Final Report* * * DATE OF EXAM: Apr 25 2022 10:24AM [facility] 0539 - CT CHEST W IVCON / PROCEDURE REASON: Malignant neoplasm of urinary bladder, unspecified site (HCC) * * * * Physician Interpretation * * * * EXAMINATION: CT SCAN OF THE CHEST WITH IV CONTRAST CLINICAL HISTORY: invasive bladder cancer status post robotic radical cystectomy, bilateral pelvic lymph node dissection, and intracorporeal ileal conduit urinary diversion on 04/20/2021. TECHNIQUE: Spiral CT scan of the chest from the thoracic inlet to the upper abdomen after the administration of intravenous contrast. Axial 1 and 3 mm thick slices plus coronal and sagittal reformatted images. MQ: CTCF_1 IV Contrast: 110 ml of Omnipaque 300 CT Radiation dose: Integrated Dose-length product (DLP) for this visit = 145.22 mGy*cm CT Dose Reduction Employed: Automated exposure control (AEC) COMPARISON: Chest CT dated 03/16/2021 RESULT: Lines, tubes, and devices: None. Visualized Lower Neck: The thyroid gland is normal.. Mediastinum: No significant mediastinal or hilar adenopathy. Cardiovascular: The heart is not enlarged. Soft Tissues: Unremarkable. Upper Abdomen: Unremarkable. Bones: Moderate degenerative change.. Lungs, Airways And Pleura: Scattered less than 0.3 cm lung nodules bilaterally (right greater than left) remain stable. No new suspicious lung nodule. There is mild left basilar linear atelectasis posteriorly, new since 03/16/2021. No pleural effusion. Timber Deadener (topogram) images: No additional findings. IMPRESSION: NO CT EVIDENCE OF METASTASIS IN THE THORAX. NO SIGNIFICANT INTERVAL CHANGE SINCE 03/16/2021. Stamp Pad Maker: PSCB Transcribe Date/Time: Apr 25 2022 3:01P Dictated by : JAYDEN MALHOTRA MD This examination was interpreted and the report reviewed and electronically signed by: JAYDEN MALHOTRA MD on Apr 25 2022 3:13PM EST [id number] [facility] CT UROGRAM WO/W IVCONon 04-16 CT UROGRAM WO/W IVCON * * *Final Report* * * DATE OF EXAM: Apr 25 2022 10:24AM [facility] 0560 - CT UROGRAM WO/W IVCON / PROCEDURE REASON: Malignant neoplasm of urinary bladder, unspecified site (HCC) * * * * Physician Interpretation * * * * EXAMINATION: CT ABDOMEN AND PELVIS WITHOUT AND WITH IV CONTRAST, INCLUDING EXCRETORY PHASE IMAGING (CT UROGRAM) 3D RECONSTRUCTIONS CLINICAL HISTORY: invasive bladder cancer status post robotic radical cystectomy, bilateral pelvic lymph node dissection, and intracorporeal ileal conduit urinary diversion on 04/20/2021. TECHNIQUE: CT urogram protocol including unenhanced, renal parenchymal phase and excretory phase renal imaging was obtained following IV contrast. Normal saline was also administered IV. No oral contrast was given. 3D image post-processing was performed and archived at the request of the referring physician, on the CT scanner workstation without concurrent physician supervision. MQ: CTU_2 Contrast: IV: 110 ml of Omnipaque 300 IV Saline: 150 ml of 0.9% NACL Solution Oral Contrast: None CT Radiation dose: Integrated dose-length product (DLP) for this visit = 1133.78 mGy*cm. CT Dose Reduction Employed: Automated exposure control (AEC) COMPARISON: Abdomen and pelvic CT dated 02/24/2022, 12/24/2021 RESULT: Kidneys and urinary tract: Right: There are no renal calculi or masses. The opacified calices, renal pelvis and ureter are normal without dilation, filling defect, or stricture. Left: There are several less than 0.5 cm nonobstructing left lower renal stones. There are no renal masses. The opacified calices, renal pelvis and ureter are normal without dilation, filling defect, or stricture. Bladder: The urinary bladder is surgically absent. Abdomen and Pelvis: Liver: No mass. Biliary: No bile duct dilation. The gallbladder is present. Spleen: No mass. No splenomegaly. Pancreas: No mass or duct dilation. Adrenals: No mass. GI tract: No dilation or wall thickening. There is right lower quadrant ileal conduit, stable. There is scattered colonic stool. No bowel obstruction. Lymph nodes: No abdominal or pelvic lymphadenopathy. Mesentery/Peritoneum: No ascites or mass. Retroperitoneum: No mass. Vasculature: The celiac axis and SMA are patent. The portal vein and branches, splenic vein, SMV, and hepatic veins are patent. Pelvis: No mass, ascites or fluid collection. Bones and Soft Tissues: No significant finding. Lower thorax: Images of the lung bases are clear. Timber Deadener (topogram) images: No additional findings. IMPRESSION: NO NEPHROLITHIASIS. LEFT NEPHROLITHIASIS. NO CT EVIDENCE OF ACUTE INTRA-ABDOMINAL PROCESS. NO CT EVIDENCE OF METASTASIS IN THE ABDOMEN AND PELVIS. Stamp Pad Maker: [facility] HOSPITALLeslie Transcribe Date/Time: Apr 25 2022 2:48P Dictated by : JAYDEN MALHOTRA MD This examination was interpreted and the report reviewed and electronically signed by: JAYDEN MALHOTRA MD on Apr 25 2022 3:03PM EST [id number] Normal [facility] Comprehensive metabolic 2000 panelon 04-25-2022 Albumin [Mass/Vol] 4.2 g/dL Normal 3.9-4.9 [facility] Comment on above: Order Comment: Speci men Type: BLOOD SPECIMEN Ordering Facility: [facility] Address: [address] [place] [phone] Performed By: #### 2 4323-8 #### [facility] CLIA [id number] [facility] [place] [address] [place] ALP [Catalytic activity/Vol] 120 U/L Normal 34-123 [facility] Comment on above: Order Comment: Speci men Type: BLOOD SPECIMEN Ordering Facility: [facility] Address: [address] [place] [address] Performed By: #### 2 4323-8 #### [facility] CLIA [id number] [place] [address] [place] ALT [Catalytic activity/Vol] 10 U/L Normal 7-38 [facility] Comment on above: Order Comment: Speci men Type: BLOOD SPECIMEN Ordering Facility: [facility] Address: [address] [address] Performed By: #### 2 4323-8 #### [facility] CLIA [id number] [address] [place] [address] [place] Anion gap [Moles/Vol] 16 mmol/L Normal 9-18 [facility] Comment on above: Order Comment: Speci men Type: BLOOD SPECIMEN Ordering Facility: [facility] Address: [address] [address] Performed By: #### 2 4323-8 #### [facility] [place] [id number] [place] AST [Catalytic activity/Vol] 9 U/L Low 13-35 [facility] Comment on above: Order Comment: Speci men Type: BLOOD SPECIMEN Ordering Facility: [facility] Address: [address] Performed By: #### 2 4323-8 #### [facility] CLIA [id number] [address] [place] [address] [place] Bilirubin [Mass/Vol] 0.5 mg/dL Normal 0.2-1.3 [facility] Comment on above: Order Comment: Speci men Type: BLOOD SPECIMEN Ordering Facility: [facility] Address: [address] [address] Performed By: #### 2 4323-8 #### [facility] CLIA [id number] [address] [place] [address] [place] Calcium [Mass/Vol] 9.3 mg/dL Normal 8.5-10.2 [facility] Comment on above: Order Comment: Speci men Type: BLOOD SPECIMEN Ordering Facility: [facility] Address: [address] [address] Performed By: #### 2 4323-8 #### [facility] CLIA [id number] [address] [place] [address] [place] Chloride [Moles/Vol] 93 mmol/L Low 97-105 [facility] Comment on above: Order Comment: Speci men Type: BLOOD SPECIMEN Ordering Facility: [facility] Address: [address] [address] Performed By: #### 2 4323-8 #### [facility] [place] [id number] [address] [place] [address] [place] CO2 [Moles/Vol] 20 mmol/L Low 22-30 [facility] Comment on above: Order Comment: Speci men Type: BLOOD SPECIMEN Ordering Facility: [facility] Address: [address] [address] Performed By: #### 2 4323-8 #### [facility] [place] [id number] [address] [place] [address] [place] Creatinine [Mass/Vol] 0.48 mg/dL Low 0.58-0.96 [facility] Comment on above: Order Comment: Speci men Type: BLOOD SPECIMEN Ordering Facility: [facility] Address: [address] Performed By: #### 2 4323-8 #### [facility] [place] [id number] [address] [place] [address] [place] ESTIMATED GLOMERULAR FILTRATION RATE 112 mL/min/1.73m??? Normal >=60 [facility] Comment on above: Order Comment: Speci men Type: BLOOD SPECIMEN Ordering Facility: [facility] Address: [address] Result Comment: Maritza mated Glomerular Filtration Rate (eGFR) is calculated using the 2020 CKD-EPI creatinine equation. This equation utilizes serum creatinine, sex, and age as parameters. The creatinine assay has traceable calibration to isotope dilution-mass spectrometry. Refer to KDIGO guidelines for clinical interpretation. In patients with unstable renal function, e.g. those with acute kidney injury, the eGFR may not accurately reflect actual GFR. Performed By: #### 2 4323-8 #### [facility] CLIA [id number] [address] [place] [address] [place] Glucose [Mass/Vol] 448 mg/dL High 74-99 [facility] Comment on above: Order Comment: Patrick hill Type: BLOOD SPECIMEN Ordering Facility: [facility] Address: [address] [place] [address] Result Comment: The [place] Diabetes Association (ADA) provides guidance for cutoff values for fasting glucose and random glucose. The ADA defines fasting as no caloric intake for at least 8 hours. Fasting plasma glucose results between 100 to 125 mg/dL indicate increased risk for diabetes (prediabetes). Fasting plasma glucose results greater than or equal to 126 mg/dL meet the criteria for diagnosis of diabetes. In the absence of unequivocal hyperglycemia, results should be confirmed by repeat testing. In a patient with classic symptoms of hyperglycemia or hyperglycemic crisis, random plasma glucose results greater than or equal to 200 mg/dL meet the criteria for diagnosis of diabetes. Reference: Standards of Medical Care in Diabetes 2016, [place] [employer] Association. Diabetes Care. 2016.39(Suppl 1). Performed By: #### 2 4323-8 #### [facility] CLIA [id number] [address] [place] [address] [place] Potassium [Moles/Vol] 4.1 mmol/L Normal 3.7-5.1 [facility] Comment on above: Order Comment: Patrick [place] Type: BLOOD SPECIMEN Ordering Facility: [facility] Address: [address] [id number] Performed By: #### 2 4323-8 #### [facility] CLIA [id number] [address] [place] [address] [place] Protein [Mass/Vol] 7.3 g/dL Normal 6.3-8.0 [facility] Comment on above: Order Comment: Speci men Type: BLOOD SPECIMEN Ordering Facility: [facility] Address: [address] [address] Performed By: #### 2 4323-8 #### [facility] CLIA [id number] [address] [place] [address] [place] Sodium [Moles/Vol] 129 mmol/L Low 136-144 [facility] Comment on above: Order Comment: Speci men Type: BLOOD SPECIMEN Ordering Facility: [facility] Address: [address] [address] Performed By: #### 2 4323-8 #### [facility] CLIA [id number] [address] [place] [address] [place] Urea nitrogen [Mass/Vol] 18 mg/dL Normal 7-21 [facility] Comment on above: Order Comment: Speci men Type: BLOOD SPECIMEN Ordering Facility: [facility] Address: [address] [address] Performed By: #### 2 4323-8 #### [facility] CLIA [id number] [address] [place] [address] [place] CBC AUTO DIFFon 04-01-2022 BASO # 0.0 103/ul Normal 0.0-0.1 [facility] Comment on above: Performed By: #### C BC ####[facility] Hfiwbvqcch[address] [place], [place] [address]Dr. Grace Best Basophils/100 WBC (Bld) 0.4 % Normal 0.2-2.0 [facility] Comment on above: Performed By: #### C BC ####[facility] Meegtozhgh9[address] [place], [place] [address]Dr. Grace Best EO # 0.1 103/ul Normal 0.0-0.7 [facility] Comment on above: Performed By: #### C BC ####[facility] Iawdpakwzs18[address] [place], [place] [address]Dr. Grace Best Eosinophils/100 WBC (Bld) 1.0 % Normal 0.9-7.0 [facility] Comment on above: Performed By: #### C BC ####[facility] Iwjksbpzmx01[address] [place], [place] [address]Dr. Grace Best Erythrocyte distribution width (RBC) [Ratio] 14.1 % Normal 11.0-15.0 [facility] Comment on above: Performed By: #### C BC ####[facility] Grcelcgolb50[address] [place], [place] [address]Dr. Grace Best Hematocrit (Bld) [Volume fraction] 31.2 % Critically low 36.0-48.0 [facility] Comment on above: Performed By: #### C BC ####[facility] Rvonuhovbo[address] [place], [place] [address]Dr. Grace Best Hemoglobin (Bld) [Mass/Vol] 10.5 g/dL Critically low 12.0-16.0 [facility] Comment on above: Performed By: #### C BC ####[facility] Ctpcvagswj1777[address] [place], [place] [address]Dr. Grace Best IG # 0.01 10e3/ul Normal 0.00-0.03 [facility] Comment on above: Performed By: #### C BC ####[facility] Pxepstmvnu265[address] [place], [place] [address]Dr. Grace Best IG % 0.2 % Normal 0.0-0.5 [facility] Comment on above: Performed By: #### C BC ####[facility] Espqesciyf1911[address] [place], [place] [address]Dr. Grace Best LYMPH # 1.8 103/ul Normal 1.2-3.8 [facility] Comment on above: Performed By: #### C BC ####[facility] Tvdogebeba1667[address] [place], [place] [address]Dr. Grace Best Lymphocytes/100 WBC (Bld) 33.5 % Normal 20.5-60.0 [facility] Comment on above: Performed By: #### C BC ####[facility] Nghihiaoxt730262 [address] [place], [place] [address]Dr. Grace Best MANUAL DIFF REQ NO Normal [facility] Comment on above: Performed By: #### C BC ####[facility] [address] [address]Dr. Grace Best MCH (RBC) [Entitic mass] 29.1 pg Normal 26.7-34.0 [facility] Comment on above: Performed By: #### C BC ####[facility] Hdanvelkjg[address] [address]Dr. Grace Best MCHC (RBC) [Mass/Vol] 33.7 g/dL Normal 29.9-35.2 [facility] Comment on above: Performed By: #### C BC ####[facility] Krxnkwvsyj650[address] [place], [place] [address]Dr. Grace Best MCV (RBC) [Entitic vol] 86.4 fL Normal 81.0-99.0 [facility] Comment on above: Performed By: #### C BC ####[facility] Wnbxclicid983162 [address] [place], [place] [address]Dr. Grace Best MONO # 0.3 103/ul Normal 0.3-0.8 [facility] Comment on above: Performed By: #### C BC ####[facility] Wbnniufvbs6414[address] [place], [place] [address]DrGiancarlo Best Monocytes/100 WBC (Bld) 6.3 % Normal 1.7-12.0 [facility] Comment on above: Performed By: #### C BC ####[facility] Mgknmejoyk0557[address] [place], [place] [address]DrGiancarlo Best NEUT # 3.1 103/ul Normal 1.4-6.5 [facility] Comment on above: Performed By: #### C BC ####[facility] Jjuhfnobym717[address] [place], [place] [address]DrGiancarlo Best Neutrophils/100 WBC (Bld) 58.6 % Normal 43.0-75.0 [facility] Comment on above: Performed By: #### C BC ####[facility] Stuuubgypk782162 [address] [place], [place] [address]Dr. Grace Best Platelet mean volume (Bld) [Entitic vol] 8.6 fL Critically low 9.5-13.5 [facility] Comment on above: Performed By: #### C BC ####[facility] [address] [address]Dr. Grace Nasir PLT 330 103/ul Normal 150-450 [facility] Comment on above: Performed By: #### C BC ####[facility] T[address]midlliv[address] [address]Dr. Grace Best RBC 3.61 106/ul Critically low 4.20-5.40 [facility] Comment on above: Performed By: #### C BC ####[facility] Druyjkycif[address] [address]Dr. Grace Best WBC 5.3 103/ul Normal 4.0-11.0 [facility] Comment on above: Performed By: #### C BC ####[facility] Hhstgbiysv68[address] [place], [place] [address]Dr. Grace Best CULTURE URINEon 04-01-2022 CULTURE URINE Normal [facility] Comment on above: Performed By: #### U RCX ####[facility] Fwgwlbknqq724[address] [place], [place] [address]Dr. Grace Best POINT OF CARE GLUCOSEon 03-16 Glucose [Mass/Vol] 473 mg/dL Critically high 74-106 [facility] Comment on above: Performed By: #### P OCGLUC ####[facility] Wzgijscsyg738[address] [place], [place] [address]DrGiancarlo Best PROF 14(COMP METB)on 022 Albumin [Mass/Vol] 2.3 g/dL Critically low 3.4-5.0 [facility] Comment on above: Performed By: #### C MP ####[facility] Wvyfyopjby580[address] [place], [place] [address]Dr. Grace Best Albumin/Globulin [Mass ratio] 0.7 {ratio} Normal [facility] Comment on above: Performed By: #### C MP ####[facility] Zgwwxxhjdf438[address] [place], [place] [address]Dr. Grace Best ALP [Catalytic activity/Vol] 71 U/L Normal 46-116 [facility] Comment on above: Performed By: #### C MP ####[facility] I[address]offu[address] [address]Dr. Grace Nasir ALT [Catalytic activity/Vol] 12 U/L Critically low 14-59 [facility] Comment on above: Performed By: #### C MP ####[facility] Oprbfvqazt5530[address] [place], [place] [address]Dr. Grace Nasir Anion gap [Moles/Vol] 9.1 mmol/L Normal [facility] Comment on above: Performed By: #### C MP ####[facility] Zxkydvfeka6159[address] [place], [place] [address]Dr. Grace Nasir AST [Catalytic activity/Vol] 10 U/L Critically low 15-37 [facility] Comment on above: Performed By: #### C MP ####[facility] Gvvibyqxed893[address] [place], [place] [address]Dr. Grace Nasir Bilirubin [Mass/Vol] 0.2 mg/dL Normal 0.2-1.0 [facility] Comment on above: Performed By: #### C MP ####[facility] Wvequnbvat310[address] [place], [place] [address]Dr. Roxannega Best Calcium [Mass/Vol] 8.1 mg/dL Critically low 8.5-10.1 [facility] Comment on above: Performed By: #### C MP ####[facility] Tpyfauzfgb0139[address] [place], [place] [address]Dr. Roxannega Best Chloride [Moles/Vol] 104 mmol/L Normal 98-107 [facility] Comment on above: Performed By: #### C MP ####[facility] Ncmjuhfzuo44[address] [place], [place] [address]Dr. Grace Best CO2 [Moles/Vol] 24.5 mmol/L Normal 21.0-32.0 [facility] Comment on above: Performed By: #### C MP ####[facility] Phojtqnjpq369[address] [place], [place] [address]Dr. Grace Best Creatinine [Mass/Vol] 0.50 mg/dL Critically low 0.55-1.02 [facility] Comment on above: Performed By: #### C MP ####[facility] [address] [id number]. Grace Best EGFR-AF NORWEGIAN >60 Normal >=60 [facility] Comment on above: Performed By: #### C MP ####[facility] P[address]xlqdcnln7[address] [id number]. Grace Nasir EGFR-NON AF NORWEGIAN >60 Normal >=60 [facility] Comment on above: Performed By: #### C MP ####[facility] Kiqdarntne[address] [id number]. Grace Nasir Globulin (S) [Mass/Vol] 3.1 g/dL Normal [facility] Comment on above: Performed By: #### C MP ####[facility] V[address]ujijv36[address] [id number]. Grace Nasir Glucose [Mass/Vol] 322 mg/dL Critically high 74-106 [facility] Comment on above: Performed By: #### C MP ####[facility] Xhpvrkfjaa2126 [address] [id number]. Grace Nasir Potassium [Moles/Vol] 3.6 mmol/L Normal 3.5-5.1 [facility] Comment on above: Performed By: #### C MP ####[facility] Ddqovjaylk9[address] [id number]. Grace Nasir Protein [Mass/Vol] 5.4 g/dL Critically low 6.4-8.2 [facility] Comment on above: Performed By: #### C MP ####[facility] T[address]wirr[address] [address]Dr. Grace Best Sodium [Moles/Vol] 134 mmol/L Critically low 136-145 [facility] Comment on above: Performed By: #### C MP ####[facility] Pqsiycqnog3[address] [id number]. Grace Nasir Urea nitrogen [Mass/Vol] 18.0 mg/dL Normal 7.0-18.0 [facility] Comment on above: Performed By: #### C MP ####[facility] Nzeievlpev311[address] [place], [place] [address]Dr. Grace Best Urea nitrogen/Creatinine [Mass ratio] 36.0 mg/mg Normal [facility] Comment on above: Performed By: #### C MP ####[facility] Evlznametv7950[address] [place], [place] [address]Dr. Grace Best CBC AUTO DIFFon 03-31-2022 BASO # 0.0 103/ul Normal 0.0-0.1 [facility] Comment on above: Performed By: #### C BC ####[facility] Uqazszyoje4518[address] [place], [place] [address]DrGiancarlo Best Basophils/100 WBC (Bld) 0.2 % Normal 0.2-2.0 [facility] Comment on above: Performed By: #### C BC ####[facility] Xofznftafp7584[address] [place], [place] [address]DrGiancarlo Best EO # 0.0 103/ul Normal 0.0-0.7 [facility] Comment on above: Performed By: #### C BC ####[facility] Ghcbibdkgs564[address] [place], [place] [address]DrGiancarlo Best Eosinophils/100 WBC (Bld) 0.2 % Critically low 0.9-7.0 [facility] Comment on above: Performed By: #### C BC ####[facility] Udtnizvrzl8101[address] [place], [place] [address]DrGiancarlo Best Erythrocyte distribution width (RBC) [Ratio] 14.4 % Normal 11.0-15.0 [facility] Comment on above: Performed By: #### C BC ####[facility] Dzgtawvrac3428[address] [place], [place] [address]DrGiancarlo Best Hematocrit (Bld) [Volume fraction] 31.9 % Critically low 36.0-48.0 [facility] Comment on above: Performed By: #### C BC ####[facility] Gajycopvec537[address] [place], [place] [address]Dr. Grace Best Hemoglobin (Bld) [Mass/Vol] 10.6 g/dL Critically low 12.0-16.0 [facility] Comment on above: Performed By: #### C BC ####[facility] Vmemiwxcat17[address] [address]DrGiancarlo Best IG # 0.03 10e3/ul Normal 0.00-0.03 [facility] Comment on above: Performed By: #### C BC ####[facility] Gthfjgcful16[address] [place], [place] [address]Dr. Grace Best IG % 0.3 % Normal 0.0-0.5 [facility] Comment on above: Performed By: #### C BC ####[facility] Svalwlsjuc723[address] [place], [place] [address]DrGiancarlo Best LYMPH # 1.9 103/ul Normal 1.2-3.8 [facility] Comment on above: Performed By: #### C BC ####[facility] Xynvzgzgcf5700[address] [place], [place] [address]DrGiancarlo Best Lymphocytes/100 WBC (Bld) 19.1 % Critically low 20.5-60.0 [facility] Comment on above: Performed By: #### C BC ####[facility] Rwrthlrfmc037[address] [place], [place] [address]DrGiancarlo Best MANUAL DIFF REQ NO Normal [facility] Comment on above: Performed By: #### C BC ####[facility] Wioizhjowz737[address] [place], [place] [address]DrGiancarlo Best MCH (RBC) [Entitic mass] 29.0 pg Normal 26.7-34.0 [facility] Comment on above: Performed By: #### C BC ####[facility] Pwevcflvcw3801[address] [place], [place] [address]DrGiancarlo Best MCHC (RBC) [Mass/Vol] 33.2 g/dL Normal 29.9-35.2 [facility] Comment on above: Performed By: #### C BC ####[facility] Zcoejjwhub0875[address] [place], [place] [address]DrGiancarlo Best MCV (RBC) [Entitic vol] 87.2 fL Normal 81.0-99.0 [facility] Comment on above: Performed By: #### C BC ####[facility] I[address]vrnwzn[address] [id number] Grace Best MONO # 0.5 103/ul Normal 0.3-0.8 [facility] Comment on above: Performed By: #### C BC ####[facility] Ynibxelkon7[address] [place], [place] [address]DrGiancarlo Oliveiraga Nasir Monocytes/100 WBC (Bld) 4.6 % Normal 1.7-12.0 [facility] Comment on above: Performed By: #### C BC ####[facility] Fjomjpjqka684[address] [place], [place] [address]DrGiancarlo Oliveiraga Best NEUT # 7.4 103/ul Critically high 1.4-6.5 [facility] Comment on above: Performed By: #### C BC ####[facility] Eyavoaezif6488[address] [place], [place] [address]DrGiancarlo Best Neutrophils/100 WBC (Bld) 75.6 % Critically high 43.0-75.0 [facility] Comment on above: Performed By: #### C BC ####[facility] Meirlttiwh027[address] [place], [place] [address]DrGiancarlo Oliveiraga Nasir Platelet mean volume (Bld) [Entitic vol] 8.4 fL Critically low 9.5-13.5 [facility] Comment on above: Performed By: #### C BC ####[facility] Zayjhbchfq[address] [place], [place] [address]DrGiancarlo Best PLT 349 103/ul Normal 150-450 [facility] Comment on above: Performed By: #### C BC ####[facility] Pnubfsovkm3[address] [place], [place] [address]DrGiancarlo Best RBC 3.66 106/ul Critically low 4.20-5.40 [facility] Comment on above: Performed By: #### C BC ####[facility] Dzinaechdv8[address] [place], [place] [address]DrGiancarlo Best WBC 9.8 103/ul Normal 4.0-11.0 [facility] Comment on above: Performed By: #### C BC ####[facility] C[address]cagbaod[address] [address]Dr. Grace Best POINT OF CARE GLUCOSEon 03-16 Glucose [Mass/Vol] 387 mg/dL Critically high 74-106 [facility] Comment on above: Performed By: #### P OCGLUC ####[facility] Metv[address]zpxw9[address] [address]Dr. Grace Best PROF 14(COMP METB)on 022 Albumin [Mass/Vol] 2.7 g/dL Critically low 3.4-5.0 [facility] Comment on above: Performed By: #### C MP ####[facility] Pxxshtkbdi45[address] [address]Dr. Grace Best Albumin/Globulin [Mass ratio] 0.8 {ratio} Normal [facility] Comment on above: Performed By: #### C MP ####[facility] Bmkooywqyy15[address] [address]Dr. Grace Best ALP [Catalytic activity/Vol] 75 U/L Normal 46-116 [facility] Comment on above: Performed By: #### C MP ####[facility] Jphdinbgrm16[address] [address]Dr. Grace Best ALT [Catalytic activity/Vol] 11 U/L Critically low 14-59 [facility] Comment on above: Performed By: #### C MP ####[facility] Okuh[address]ftoqb84[address] [address]Dr. Grace Best Anion gap [Moles/Vol] 12.7 mmol/L Normal [facility] Comment on above: Performed By: #### C MP ####[facility] Setifabeub10[address] [place], [place] [address]Dr. Grace Best AST [Catalytic activity/Vol] 10 U/L Critically low 15-37 [facility] Comment on above: Performed By: #### C MP ####[facility] Aagctkdspx1977[address] [place], [place] [address]Dr. Grace Nasir Bilirubin [Mass/Vol] 0.4 mg/dL Normal 0.2-1.0 [facility] Comment on above: Performed By: #### C MP ####[facility] C[address]pbhympw5[address] [address]Dr. Roxannega Best Calcium [Mass/Vol] 8.2 mg/dL Critically low 8.5-10.1 [facility] Comment on above: Performed By: #### C MP ####[facility] Irwhrszdpr[address] [address]Dr. Grace Best Chloride [Moles/Vol] 102 mmol/L Normal 98-107 [facility] Comment on above: Performed By: #### C MP ####[facility] Lpmwfhavrz1139 [address] [address]Dr. Grace Best CO2 [Moles/Vol] 24.8 mmol/L Normal 21.0-32.0 [facility] Comment on above: Performed By: #### C MP ####[facility] Dkslfzsesb[address] [place], [place] [address]Dr. Grace Nasir Creatinine [Mass/Vol] 0.46 mg/dL Critically low 0.55-1.02 [facility] Comment on above: Performed By: #### C MP ####[facility] Hcuhpkdhct[address] [place], [place] [address]Dr. Grace Best EGFR-AF NORWEGIAN >60 Normal >=60 [facility] Comment on above: Performed By: #### C MP ####[facility] Urwvwrdhhs866[address] [place], [place] [address]Dr. Grace Best EGFR-NON AF NORWEGIAN >60 Normal >=60 [facility] Comment on above: Performed By: #### C MP ####[facility] Foahdsnvwp759[address] [place], [place] [address]Dr. Grace Best Globulin (S) [Mass/Vol] 3.2 g/dL Normal [facility] Comment on above: Performed By: #### C MP ####[facility] Lhigtjlvkj287[address] [place], [place] [address]Dr. Grace Best Glucose [Mass/Vol] 177 mg/dL Critically high 74-106 [facility] Comment on above: Performed By: #### C MP ####[facility] Z[address]vzdkygj99[address] [address]Dr. Grace Best Potassium [Moles/Vol] 3.5 mmol/L Normal 3.5-5.1 [facility] Comment on above: Performed By: #### C MP ####[facility] Kgjprtwoxi8[address] [place], [place] [address]Dr. Grace Best Protein [Mass/Vol] 5.9 g/dL Critically low 6.4-8.2 [facility] Comment on above: Performed By: #### C MP ####[facility] Wiavhumpqd22[address] [place], [place] [address]Dr. Grace Best Sodium [Moles/Vol] 136 mmol/L Normal 136-145 [facility] Comment on above: Performed By: #### C MP ####[facility] Jnljnuqwwa[address] [place], [place] [address]Dr. Grace Nasir Urea nitrogen [Mass/Vol] 10.0 mg/dL Normal 7.0-18.0 [facility] Comment on above: Performed By: #### C MP ####[facility] Yuqawemrkb24[address] [place], [place] [address]Dr. Grace Best Urea nitrogen/Creatinine [Mass ratio] 21.7 mg/mg Normal [facility] Comment on above: Performed By: #### C MP ####[facility] Wfhzaylath3290[address] [place], [place] [address]Dr. Grace Nasir CBC AUTO DIFFon 03-30-2022 BASO # 0.0 103/ul Normal 0.0-0.1 [facility] Comment on above: Performed By: #### C BC ####[facility] Yxhbbvtufg25[address] [place], [place] [address]Dr. Grace Best Basophils/100 WBC (Bld) 0.3 % Normal 0.2-2.0 [facility] Comment on above: Performed By: #### C BC ####[facility] Nsoxyrrwew044[address] [place], [place] [address]Dr. Grace Best EO # 0.0 103/ul Normal 0.0-0.7 [facility] Comment on above: Performed By: #### C BC ####[facility] Ilbtsckjwb95[address] [place] [address]Dr. Grace Best Eosinophils/100 WBC (Bld) 0.2 % Critically low 0.9-7.0 [facility] Comment on above: Performed By: #### C BC ####[facility] Jehmvgeumw9[address] [place] [address]Dr. Grace Best Erythrocyte distribution width (RBC) [Ratio] 14.6 % Normal 11.0-15.0 [facility] Comment on above: Performed By: #### C BC ####[facility] Dvpoibzaht7[address] [place] [address]Dr. Grace Best Hematocrit (Bld) [Volume fraction] 34.8 % Critically low 36.0-48.0 [facility] Comment on above: Performed By: #### C BC ####[facility] Bvgjiksuni[address] [place] [address]Dr. Grace Best Hemoglobin (Bld) [Mass/Vol] 11.0 g/dL Critically low 12.0-16.0 [facility] Comment on above: Result Comment: flui ds given Performed By: #### C BC ####[facility] [address]igegw[address] [place] [address]Dr. Grace Best IG # 0.01 10e3/ul Normal 0.00-0.03 [facility] Comment on above: Performed By: #### C BC ####[facility] Waamlxzlmi5324 [place] [address]Dr. Grace Best IG % 0.2 % Normal 0.0-0.5 [facility] Comment on above: Performed By: #### C BC ####[facility] Yhzglofxwl32[address] [place] [address]Dr. Roxannega Best LYMPH # 1.2 103/ul Normal 1.2-3.8 [facility] Comment on above: Performed By: #### C BC ####[facility] Bbrhruozho25[address] [place] [id number]. Grace Nasir Lymphocytes/100 WBC (Bld) 21.4 % Normal 20.5-60.0 [facility] Comment on above: Performed By: #### C BC ####[facility] Warxttifzq2[address] [place] [id number]. Roxannega Best MANUAL DIFF REQ NO Normal [facility] Comment on above: Performed By: #### C BC ####[facility] [address] [place] [id number]. Grace Nasir MCH (RBC) [Entitic mass] 28.6 pg Normal 26.7-34.0 [facility] Comment on above: Performed By: #### C BC ####[facility] Yytlrpaadu[address] [place] [address]Dr. Grace Nasir MCHC (RBC) [Mass/Vol] 31.6 g/dL Normal 29.9-35.2 [facility] Comment on above: Performed By: #### C BC ####[facility] Huabuooomu[address] [place] [id number]. Grace Nasir MCV (RBC) [Entitic vol] 90.6 fL Normal 81.0-99.0 [facility] Comment on above: Performed By: #### C BC ####[facility] Cgluidtimn0234 [place] [address]Dr. Grace Best MONO # 0.5 103/ul Normal 0.3-0.8 [facility] Comment on above: Performed By: #### C BC ####[facility] Vqwyzzqrhn2121 [place] [id number]. Roxannega Best Monocytes/100 WBC (Bld) 9.0 % Normal 1.7-12.0 [facility] Comment on above: Performed By: #### C BC ####[facility] Fdimozevzh1366 [place] [address]Dr. Grace Best NEUT # 4.0 103/ul Normal 1.4-6.5 [facility] Comment on above: Performed By: #### C BC ####[facility] Fnhbhqfszn6007 [place] [id number]. Grace Best Neutrophils/100 WBC (Bld) 68.9 % Normal 43.0-75.0 [facility] Comment on above: Performed By: #### C BC ####[facility] Wrufdbvupq4496 [place] [phone]. Grace Best Platelet mean volume (Bld) [Entitic vol] 8.5 fL Critically low 9.5-13.5 [facility] Comment on above: Performed By: #### C BC ####[facility] Gpgutzegrh8906 [place] [phone]. Grace Best PLT 421 103/ul Normal 150-450 [facility] Comment on above: Performed By: #### C BC ####[facility] Upzpglhrjd[address] [place], [place] [address]Dr. Grace Best RBC 3.84 106/ul Critically low 4.20-5.40 [facility] Comment on above: Performed By: #### C BC ####[facility] Cffocfrbws[address] [place], [place] [address]Dr. Grace Best WBC 5.8 103/ul Normal 4.0-11.0 [facility] Comment on above: Performed By: #### C BC ####[facility] Rrslrvaiaa[address] [place], [place] [address]Dr. Grace Best LACTATE/LACTIC ACIDon 2021 Lactate [Moles/Vol] 6.0 mmol/L Critically high 0.4-1.9 [facility] Comment on above: Performed By: #### L ACT ####[facility] Wsggrohntf[address] [place], [place] [address]Dr. Grace Best MAGNESIUMon 03-30-2022 Magnesium [Mass/Vol] 2.2 mg/dL Normal 1.8-2.4 [facility] Comment on above: Performed By: #### M G, T4 ####[facility] Cdpxnpranl[address] [place], [place] [address]Dr. Grace Best POINT OF CARE GLUCOSEon 03-16 Glucose [Mass/Vol] 269 mg/dL Critically high 74-106 T [facility] Comment on above: Performed By: #### P OCGLUC ####[facility] Ylddkzkjaf5044 [place] [address]Dr. Grace Best Glucose [Mass/Vol] 349 mg/dL Critically high 74-106 [facility] Comment on above: Performed By: #### P OCGLUC ####[facility] Pbfpxxxikt2660 [place] [address]Dr. Grace Best Glucose [Mass/Vol] 472 mg/dL Critically high 74-106 [facility] Comment on above: Performed By: #### P OCGLUC ####[facility] Qlaiirtjyt0840 [place] [address]Dr. Grace Best PROF 14(COMP METB)on 022 Albumin [Mass/Vol] 2.8 g/dL Critically low 3.4-5.0 [facility] Comment on above: Performed By: #### C MP ####[facility] Vvhnkcpfqx[address] [place], [place] [address]Dr. Grace Best Albumin/Globulin [Mass ratio] 0.8 {ratio} Normal [facility] Comment on above: Performed By: #### C MP ####[facility] Jmtrecyvcw63[address] [place], [place] [address]Dr. Grace Best ALP [Catalytic activity/Vol] 87 U/L Normal 46-116 [facility] Comment on above: Performed By: #### C MP ####[facility] Qglepxeueh069[address] [place], [place] [address]Dr. Grace Best ALT [Catalytic activity/Vol] 11 U/L Critically low 14-59 [facility] Comment on above: Performed By: #### C MP ####[facility] Klnnymmqye075[address] [place], [place] [address]Dr. Grace Best Anion gap [Moles/Vol] 13.5 mmol/L Normal [facility] Comment on above: Performed By: #### C MP ####[facility] Kdvkrzlcns[address] [place], [place] [address]Dr. Grace Best AST [Catalytic activity/Vol] 9 U/L Critically low 15-37 [facility] Comment on above: Performed By: #### C MP ####[facility] Kaczsgdlqt6594 [place] [address]Dr. Roxannega Nasir Bilirubin [Mass/Vol] 0.1 mg/dL Critically low 0.2-1.0 [facility] Comment on above: Performed By: #### C MP ####[facility] Gmkssjxmvx[address] [place], [place] [address]Dr. Grace Best Calcium [Mass/Vol] 8.9 mg/dL Normal 8.5-10.1 [facility] Comment on above: Performed By: #### C MP ####[facility] Ptzakgoxvv6[address] [place], [place] [address]Dr. Grace Best Chloride [Moles/Vol] 118 mmol/L Critically high 98-107 [facility] Comment on above: Performed By: #### C MP ####[facility] Xlcbqfntgt66[address] [place], [place] [address]Dr. Grace Best CO2 [Moles/Vol] 22.1 mmol/L Normal 21.0-32.0 [facility] Comment on above: Performed By: #### C MP ####[facility] Hgtsldrfwc8[address] [place], [place] [address]Dr. Grace Best Creatinine [Mass/Vol] 0.63 mg/dL Normal 0.55-1.02 [facility] Comment on above: Performed By: #### C MP ####[facility] Vgpmhlberl06[address] [place], [place] [address]Dr. Grace Best EGFR-AF NORWEGIAN >60 Normal >=60 [facility] Comment on above: Performed By: #### C MP ####[facility] Bqslpklwrn[address] [place], [place] [address]Dr. Grace Best EGFR-NON AF NORWEGIAN >60 Normal >=60 [facility] Comment on above: Performed By: #### C MP ####[facility] Wbupdttvng90[address] [place], [place] [address]Dr. Grace Best Globulin (S) [Mass/Vol] 3.6 g/dL Normal [facility] Comment on above: Performed By: #### C MP ####[facility] Bahynwktir230[address] [place] [phone]. Grace Best Glucose [Mass/Vol] 222 mg/dL Critically high 74-106 [facility] Comment on above: Performed By: #### C MP ####[facility] Jwlijqvvhg5616 [place] [phone]. Grace Best Potassium [Moles/Vol] 5.3 mmol/L Critically high 3.5-5.1 [facility] Comment on above: Performed By: #### C MP ####[facility] Vqivwcjyop1962 [place] [phone]. Grace Best Protein [Mass/Vol] 6.4 g/dL Normal 6.4-8.2 [facility] Comment on above: Performed By: #### C MP ####[facility] Vzhcstdzgk1878 [place] [address]Dr. Grace Best Sodium [Moles/Vol] 151 mmol/L Critically high 136-145 [facility] Comment on above: Performed By: #### C MP ####[facility] Oaewkrmreb0417 [place] [phone]. Grace Best Urea nitrogen [Mass/Vol] 19.0 mg/dL Critically high 7.0-18.0 [facility] Comment on above: Performed By: #### C MP ####[facility] Vfzfrjiibw0920 [place] [phone]. Grace Best Urea nitrogen/Creatinine [Mass ratio] 30.1 mg/mg Normal [facility] Comment on above: Performed By: #### C MP ####[facility] Qqwdflowgx0580 [place] [phone]. Grace Best T4on 03-30-2022 T4 [Mass/Vol] 8.20 ug/dL Normal 4.80-13.90 [facility] Comment on above: Performed By: #### M G, T4 ####[facility] Uuxbershmb6780 [place] [phone]. Grace Best ACETONE SERUMon 03-29-2022 ACETONE Negative Normal NEGATIVE [facility] Comment on above: Performed By: #### A CETON ####[facility] Gyiehmldfu[address] [place], [place] [address]Dr. Grace Best AMMONIAon 03-29-2022 Ammonia (P) [Moles/Vol] 10 umol/L Critically low 11-32 [facility] Comment on above: Performed By: #### A MM ####[facility] [address]zoynqbypv[address] [place], [place] [address]Dr. Grace Best CBC AUTO DIFFon 03-29-2022 BASO # 0.0 103/ul Normal 0.0-0.1 [facility] Comment on above: Performed By: #### C BC ####[facility] Gdpngunfer43[address] [place], [place] [address]Dr. Roxannega Best Basophils/100 WBC (Bld) 0.2 % Normal 0.2-2.0 [facility] Comment on above: Performed By: #### C BC ####[facility] Trjefomtia[address] [place], [place] [address]Dr. Grace Best EO # 0.0 103/ul Normal 0.0-0.7 [facility] Comment on above: Performed By: #### C BC ####[facility] Huwguludfg[address] [place], [place] [address]Dr. Grace Best Eosinophils/100 WBC (Bld) 0.0 % Critically low 0.9-7.0 [facility] Comment on above: Performed By: #### C BC ####[facility] Ooaajssxfb[address] [place], [place] [address]Dr. Grace Best Erythrocyte distribution width (RBC) [Ratio] 14.6 % Normal 11.0-15.0 [facility] Comment on above: Performed By: #### C BC ####[facility] Uzdfhzbyaf8[address] [place], [place] [address]Dr. Grace Best Hematocrit (Bld) [Volume fraction] 41.4 % Normal 36.0-48.0 [facility] Comment on above: Performed By: #### C BC ####[facility] Ongzuctpcy64[address] [place] [address]Dr. Grace Best Hemoglobin (Bld) [Mass/Vol] 13.4 g/dL Normal 12.0-16.0 [facility] Comment on above: Performed By: #### C BC ####[facility] Ihjxsbiqsz0910 [place] [address]Dr. Grace Best IG # 0.01 10e3/ul Normal 0.00-0.03 [facility] Comment on above: Performed By: #### C BC ####[facility] Syuuphuggl5631 [place] [address]Dr. Grace Best IG % 0.2 % Normal 0.0-0.5 [facility] Comment on above: Performed By: #### C BC ####[facility] Hxbwomrijz[address] [place], [place] [address]Dr. Grace Nasir LYMPH # 0.5 103/ul Critically low 1.2-3.8 [facility] Comment on above: Performed By: #### C BC ####[facility] Qwuoqbhsei3236 [place] [address]Dr. Grace Best Lymphocytes/100 WBC (Bld) 8.9 % Critically low 20.5-60.0 [facility] Comment on above: Performed By: #### C BC ####[facility] Cyybxvkomh1732 [place] [address]Dr. Grace Best MANUAL DIFF REQ NO Normal [facility] Comment on above: Performed By: #### C BC ####[facility] Htopoudhbl1168 [place] [address]Dr. Grace Best MCH (RBC) [Entitic mass] 28.8 pg Normal 26.7-34.0 [facility] Comment on above: Performed By: #### C BC ####[facility] Bbssgztfrz[address] [place], [place] [address]Dr. Grace Best MCHC (RBC) [Mass/Vol] 32.4 g/dL Normal 29.9-35.2 [facility] Comment on above: Performed By: #### C BC ####[facility] Hnktlbkydo[address] [place], [place] [address]Dr. Grace Best MCV (RBC) [Entitic vol] 88.8 fL Normal 81.0-99.0 [facility] Comment on above: Performed By: #### C BC ####[facility] Ziepsjrlfl9483 [place] [id number]. Grace Best MONO # 0.2 103/ul Critically low 0.3-0.8 [facility] Comment on above: Performed By: #### C BC ####[facility] Xksqeodqxd6710 [place] [phone]. Grace Best Monocytes/100 WBC (Bld) 3.2 % Normal 1.7-12.0 [facility] Comment on above: Performed By: #### C BC ####[facility] Tjlvthizfv7056 [place] [address]Dr. Grace Best NEUT # 4.9 103/ul Normal 1.4-6.5 [facility] Comment on above: Performed By: #### C BC ####[facility] Ryrunvdcay3110 [place] [address]Dr. Grace Best Neutrophils/100 WBC (Bld) 87.5 % Critically high 43.0-75.0 [facility] Comment on above: Performed By: #### C BC ####[facility] Uyqpwkwrgz5424 [place] [phone]. Grace Best Platelet mean volume (Bld) [Entitic vol] 9.0 fL Critically low 9.5-13.5 [facility] Comment on above: Performed By: #### C BC ####[facility] Jttezfgrhj8407 [place] [id number]. Grace Best PLT 544 103/ul Critically high 150-450 [facility] Comment on above: Performed By: #### C BC ####[facility] Crlozsemus7859 [place] [phone]. Grace Best RBC 4.66 106/ul Normal 4.20-5.40 [facility] Comment on above: Performed By: #### C BC ####[facility] Bmcjfq[address]qzp[address] [place], [place] [address]Pl. Grace Best WBC 5.6 103/ul Normal 4.0-11.0 [facility] Comment on above: Performed By: #### C BC ####[facility] Duutsdqeuq1351 [place], [place] [address]Gi. Grace Best CT STROKE HEAD WOon 03-29-20 CT STROKE HEAD WO Normal The [facility] CULTURE BLOODon 03-29-2022 Microscopic examination of blood, culture Culture Observations: NO GROWTH AT 5 DAYS. Normal [facility] Comment on above: Performed By: #### B LDCX2 ####[facility] Dpskrabohs7924 [place] [phone]. Grace Best Microscopic examination of blood, culture Culture Observations: NO GROWTH AT 5 DAYS. Normal [facility] Comment on above: Performed By: #### B LDCX1 ####[facility] Rjhhzriwwg5367 [place], [place] [address]Ek. Grace Best Covid-19 PCR (CVDTBH)on 03-16 SARS-CoV-2 (COVID-19) RNA LOUISE+probe Ql (Unsp spec) Not detected Normal NOT DETECTED [facility] Comment on above: Result Comment: When diagnostic testing is negative, the possibility of a false negative should be considered inthe context of a patient's recent exposures and the presence of clinical signs and symptomsconsistent with SARS-CoV-2.This test is not yet approved or cleared by the [place] FDA. When there are no FDA-approved or cleared tests available, and other criteria are met, FDA can make tests available under an emergency access mechanism called an Emergency Use Authorization (EUA). The EUA for this test is supported by the [place] of Health and Human Service's declaration that circumstances exist to justify the emergency use of in vitro diagnostics for the detection and/or diagnosis of the virus that causes COVID-19. This EUA will remain in effect for the duration of the COVID-19 declaration justifying emergency of IVDs, unless it is terminated or revoked by the FDA (after which the test may no longer be used). Performed By: #### C VDTBH ####[facility] Jbthpjneiu67[address] [place] [address]Dr. Grace Best DRUG SCREEN RAPID (URINE)on 03-29-2022 AMP Negative Normal NEGATIVE [facility] Comment on above: Performed By: #### U MICRO, ERUR, DRUGRPD ####[facility] Yrfacqhese[address] [place] [address]Dr. Grace Best BAR Negative Normal NEGATIVE [facility] Comment on above: Performed By: #### U MICRO, ERUR, DRUGRPD ####[facility] Ipnsequioh7872 [place] [address]Dr. Grace Best BUP Negative Normal NEGATIVE [facility] Comment on above: Performed By: #### U MICRO, ERUR, DRUGRPD ####[facility] Pmqrnbhgem7759 [place] [address]Dr. Roxannega Best BZO Negative Normal NEGATIVE [facility] Comment on above: Performed By: #### U MICRO, ERUR, DRUGRPD ####[facility] Hinqwznhbs1620 [place] [address]Dr. Grace Best MATTHEW Negative Normal NEGATIVE [facility] Comment on above: Performed By: #### U MICRO, ERUR, DRUGRPD ####[facility] Hvhtnnbcpg3620 [place] [address]Dr. Grace Best CUT-OFFS SEE BELOW Normal [facility] Comment on above: Result Comment: AMP (Amphetamine): 500ng/mL, BAR (Barbituates): 200 ng/mL, BZO (Benzodiazepines): 150 ng/mL, BUP (Buprenorphine): 10 ng/mL, MATTHEW (Cocaine): 150 ng/mL, mAMP (Methamphetamine): 500 ng/mL, MTD (Methadone): 200 ng/mL, OPI (Opiates): 100 ng/mL, OXY (Oxycodone): 100 ng/mL, PCP (Phencyclidine): 25 ng/mL, PPX (Propoxyphene): 300 ng/mL, THC (Cannabinoids): 50 ng/mL, TCA (Trycyclic Antidepressants): 300 ng/mL Performed By: #### U MICRO, ERUR, DRUGRPD ####[facility] Wskalbdtjq3394 [place] [address]Dr. ga [facility] DRUG CUT HEADER DRUG CLASS TEST SYST EM CUT-OFF CONCENTRATIONS ARE FOLLOWS: Normal [facility] Comment on above: Performed By: #### U MICRO, ERUR, DRUGRPD ####[facility] Elnmhibmzi3747 [place] [address]Dr. Grace Best mAMP Negative Normal NEGATIVE [facility] Comment on above: Performed By: #### U MICRO, ERUR, DRUGRPD ####[facility] Fomfeqjosa7931 [place] [address]Dr. Grace Best MTD Negative Normal NEGATIVE [facility] Comment on above: Performed By: #### U MICRO, ERUR, DRUGRPD ####[facility] Pwbbwdqyhm1457 [place] [address]Dr. Grace Best OPI Negative Normal NEGATIVE [facility] Comment on above: Performed By: #### U MICRO, ERUR, DRUGRPD ####[facility] Jevosrsdnm1303 [place] [address]Dr. Grace Best OXY Negative Normal NEGATIVE [facility] Comment on above: Performed By: #### U MICRO, ERUR, DRUGRPD ####[facility] Qfyqrbfukb4797 [place] [address]Dr. Grace Best PCP Negative Normal NEGATIVE [facility] Comment on above: Performed By: #### U MICRO, ERUR, DRUGRPD ####[facility] Bweddphyfz2082 [place] [address]Dr. Grace Best PPX Negative Normal NEGATIVE [facility] Comment on above: Performed By: #### U MICRO, ERUR, DRUGRPD ####[facility] Vuujxulhvg9257 [place] [address]Dr. Grace Best TCA Negative Normal NEGATIVE [facility] Comment on above: Performed By: #### U MICRO, ERUR, DRUGRPD ####[facility] Zjjlfaqeez4814 [place] [address]Dr. Grace Best THC Negative Normal NEGATIVE [facility] Comment on above: Performed By: #### U MICRO, ERUR, DRUGRPD ####[facility] Tqbjuqtqov7089 [place] [address]Dr. Grace Best ER URINE PROFILEon 2 Bilirubin Ql (U) Negative Normal NEGATIVE The [facility] Comment on above: Performed By: #### U MICRO, ERUR, DRUGRPD ####[facility] Miwfmntpng5630 [place] [address]Dr. Grace Best Clarity (U) SL CLOUDY Abnormal CLEAR [facility] Comment on above: Performed By: #### U MICRO, ERUR, DRUGRPD ####[facility] Mrhrxqicby3458 [place] [address]Dr. Grace Best Color (U) LT. YELLOW Normal YELLOW [facility] Comment on above: Performed By: #### U MICRO, ERUR, DRUGRPD ####[facility] Obprovkufo9612 [place] [address]Dr. Grace Best ERUAHD A micrscopic examination will be performed if indicated. Normal [facility] Comment on above: Performed By: #### U MICRO, ERUR, DRUGRPD ####[facility] Yhtijrfvlq8683 [place] [address]Dr. Grace Best Glucose Ql (U) >1000 Abnormal NEGATIVE [facility] Comment on above: Performed By: #### U MICRO, ERUR, DRUGRPD ####[facility] Mnnbeznpth2779 [place] [address]Dr. Grace Best Hemoglobin Ql (U) TRACE-INTACT Abnormal NEGATIVE [facility] Comment on above: Performed By: #### U MICRO, ERUR, DRUGRPD ####[facility] Jgzlfkxixj5458 [place] [address]Dr. Grace Best Ketones Ql (U) Negative Normal NEGATIVE [facility] Comment on above: Performed By: #### U MICRO, ERUR, DRUGRPD ####[facility] Nfvppiuera[address] [place], [place] [address]Dr. Grace Best LEUKOCYTES MODERATE Abnormal NEGATIVE [facility] Comment on above: Performed By: #### U MICRO, ERUR, DRUGRPD ####[facility] Udscyynznn6318 [place] [address]Dr. Grace Best Nitrite Ql (U) Positive Abnormal NEGATIVE [facility] Comment on above: Performed By: #### U MICRO, ERUR DRUGRPD ####[facility] Sclgjvpixz6249 [place] [address]Dr. Grace Best pH (U) [pH] Abnormal 5-9 [facility] Comment on above: Performed By: #### U MICRO, ERUR DRUGRPD ####[facility] Zvkazmkrha4545 [place] [address]Dr. Grace Best SPEC GRAVITY 1.010 Normal 1.005-<=1.0 25 [facility] Comment on above: Performed By: #### U MICRO, ERUR DRUGRPD ####[facility] Yqlzfnsiok1465 [place] [address]Dr. Grace Best UA PROTEIN Negative Normal NEGATIVE/ TRACE [facility] Comment on above: Performed By: #### U MICRO ERUR DRUGRPD ####[facility] Ktspzwslzh5794 [place] [address]Dr. Grace Best UR MICRO IND INDICATED Normal [facility] Comment on above: Performed By: #### U MICROVIOLETA DRUGRPD ####[facility] [address]qwegvtcgz[address] [place], [place] [address]Dr. Grace Best Urobilinogen Qn (U) 0.2 {Ancelmo'U}/dL Normal 0.2 - 1. 0 [facility] Comment on above: Performed By: #### U MICRO, ERUThompson DRUGRPD ####[facility] Gexzdjesoa[address] [place], [place] [address]Dr. Grace Best LACTATE/LACTIC ACIDon 2021 Lactate [Moles/Vol] 3.6 mmol/L Critically high 0.4-1.9 [facility] Comment on above: Performed By: #### L ACT ####[facility] Wfjqvkviby[address] [place], [place] [address]Dr. Grace Best LIPASEon 03-29-2022 Lipase [Catalytic activity/Vol] 209.0 U/L Normal 73.0-393.0 [facility] Comment on above: Performed By: #### T SH, LIPA, HSTROPN, CMP ####[facility] Bprnlyabkq4852 [place] [address]Dr. Grace Best PH VENOUS BLOODon 03-29-2022 PCO2 VENOUS 39.8 mmHg Critically low 40.0-52.0 [facility] Comment on above: Performed By: #### P HVEN ####[facility] Juxowzmgnn6421 [place] [address]Dr. Grace Best pH VENOUS 7.347 Normal 7.330-7.430 [facility] Comment on above: Performed By: #### P HVEN ####[facility] Wqthnrwmql9448 [place] [address]Dr. Grace Best POINT OF CARE GLUCOSEon 03-16 POCGLUC >600 Critically high 74-106 [facility] Comment on above: Result Comment: Resu lt Not Confirmed Performed By: #### P OCGLUC ####[facility] Ecayxismrl4373 [place] [address]Dr. Grace Best PROF 14(COMP METB)on 022 Albumin [Mass/Vol] 3.8 g/dL Normal 3.4-5.0 [facility] Comment on above: Performed By: #### T SH, LIPA, HSTROPN, CMP ####[facility] Oaigyisqib3836 [place] [address]Dr. Grace Best Albumin/Globulin [Mass ratio] 0.9 {ratio} Normal [facility] Comment on above: Performed By: #### T SH, LIPA, HSTROPN, CMP ####[facility] Kwlbnhydef7983 [place] [address]Dr. Grace Best ALP [Catalytic activity/Vol] 112 U/L Normal 46-116 [facility] Comment on above: Performed By: #### T SH, LIPA, HSTROPN, CMP ####[facility] Lwkdjzcnqb7483 [place] [address]Dr. Grace Best ALT [Catalytic activity/Vol] 16 U/L Normal 14-59 [facility] Comment on above: Performed By: #### T SH, LIPA, HSTROPN, CMP ####[facility] Tonvokhooq1482 [place] [address]Dr. Grace Best Anion gap [Moles/Vol] 18.6 mmol/L Normal [facility] Comment on above: Performed By: #### T SH, LIPA, HSTROPN, CMP ####[facility] C[address]fjubs[address] [place], [place] [address]Dr. Grace Best AST [Catalytic activity/Vol] 12 U/L Critically low 15-37 [facility] Comment on above: Performed By: #### T FREDDY, LIPA, HSTROPN, CMP ####[facility] Rfenh[address]uyz[address] [place], [place] [address]Dr. Grace Best Bilirubin [Mass/Vol] 0.3 mg/dL Normal 0.2-1.0 [facility] Comment on above: Performed By: #### T FREDDY, LIPA, HSTROPN, CMP ####[facility] [address]wessprrq[address] [place], [place] [address]Dr. Grace Best Calcium [Mass/Vol] 9.6 mg/dL Normal 8.5-10.1 [facility] Comment on above: Performed By: #### T SH, LIPA, HSTROPN, CMP ####[facility] Unvhcvwdyo[address] [place], [place] [address]Dr. Grace Best Chloride [Moles/Vol] 100 mmol/L Normal 98-107 [facility] Comment on above: Performed By: #### T SH, LIPA, HSTROPN, CMP ####[facility] Jmayiuuzgz[address] [place], [place] [address]Dr. Grace Best CO2 [Moles/Vol] 21.7 mmol/L Normal 21.0-32.0 [facility] Comment on above: Performed By: #### T SH, LIPA, HSTROPN, CMP ####[facility] Abswdjbgki[address] [place], [place] [address]Dr. Grace Best Creatinine [Mass/Vol] 1.08 mg/dL Critically high 0.55-1.02 [facility] Comment on above: Performed By: #### T SH, LIPA, HSTROPN, CMP ####[facility] Ia[address]muou[address] [place] [address]Dr. Grace Best EGFR-AF NORWEGIAN 64 mL/min/1.73m2 Normal >=60 [facility] Comment on above: Performed By: #### T SH, LIPA, HSTROPN, CMP ####[facility] C[address]ergl[address] [place] [address]Dr. Roxannelan Best EGFR-NON AF NORWEGIAN 53 mL/min/1.73m2 Critically low >=60 [facility] Comment on above: Performed By: #### T SH, LIPA, HSTROPN, CMP ####[facility] Xupjfznkmn[address] [place] [address]Dr. Grace Best Globulin (S) [Mass/Vol] 4.3 g/dL Normal [facility] Comment on above: Performed By: #### T SH, LIPA, HSTROPN, CMP ####[facility] Rxyfzzqwyv[address] [place], [place] [address]Dr. Roxannelan Best GLUC >500 Critically high 74-106 [facility] Comment on above: Performed By: #### T SH, LIPA, HSTROPN, CMP ####[facility] Pblbypovdx[address] [place] [address]Dr. Grace Best Potassium [Moles/Vol] 4.3 mmol/L Normal 3.5-5.1 [facility] Comment on above: Performed By: #### T SH, LIPA, HSTROPN, CMP ####[facility] Khvwnitwpg59[address] [place] [address]Dr. Roxannelan Best Protein [Mass/Vol] 8.1 g/dL Normal 6.4-8.2 The [facility] Comment on above: Performed By: #### T SH, LIPA, HSTROPN, CMP ####[facility] Wkkiryhrec[address] [place] [address]Dr. Roxannelan Best Sodium [Moles/Vol] 136 mmol/L Normal 136-145 [facility] Comment on above: Performed By: #### T ARNAUD HAYES HSTROPN, CMP ####[facility] Fvrfhnuiph[address] [place] [address]Dr. Grace Best Urea nitrogen [Mass/Vol] 28.0 mg/dL Critically high 7.0-18.0 [facility] Comment on above: Performed By: #### T ARNAUD HAYES HSTRKARINEN, CMP ####[facility] Hzeojcirap[address] [place], [place] [address]Dr. Grace Best Urea nitrogen/Creatinine [Mass ratio] 25.9 mg/mg Normal [facility] Comment on above: Performed By: #### T ARNAUD HAYES HSTROPN, CMP ####[facility] Fwlujtjwmx19[address] [place], [place] [address]Dr. Grace Best PROTIMEon 03-29-2022 INR Coag (PPP) [Relative time] {INR} Normal [facility] Comment on above: Performed By: #### P T, PTT ####[facility] Qetlbqeqtk[address] [place], [place] [address]Dr. Grace Best INR GUIDELINES SEE BELOW Normal The [facility] Comment on above: Result Comment: BRANDY RED INR: 2.0 - 3.0 CONDITIONS NOT LISTED BELOW 2.5 - 3.5 FOR PROSTHETIC HEART VALVE REPLACEMENT 2.5 - 3.5 RECURRENT THROMBOSIS Performed By: #### P T, PTT ####[facility] Khlarfhbri259[address] [place], [place] [address]Dr. Grace Best PT Coag (PPP) [Time] 9.8 s Normal 9.0-11.6 [facility] Comment on above: Performed By: #### P T, PTT ####[facility] Bmdlsjxfyo33[address] [place], [place] [address]Dr. Grace Best PTTon 03-29-2022 aPTT Coag (Bld) [Time] 22.2 s Critically low 22.3-36.2 [facility] Comment on above: Performed By: #### P T, PTT ####[facility] Tysxfrjhkd88[address] [place], [place] [address]Dr. Grace Best TROPONIN, HIGH SENSITIVITYon 03-29-2022 HSTROP 8.7 pg/mL Normal 4.0-51.3 [facility] Comment on above: Result Comment: CUT- OFF POINTS HAVE BEEN ESTABLISHED BASED ON THE FOURTH UNIVERSAL DEFINITIONS OF MYOCARDIALINFARCTION. THE UPPER REFERENCE LIMIT (URL) OF TROPONIN, DEFINED THE 99TH PERCENTILE OFcTnI DISTRIBUTION IN A REFERENCE POPULATION, HAS BEEN CONFIRMED THE DECISION THRESHOLDFOR [place] DIAGNOSIS. Performed By: #### T SH, LIPA, HSTROPN, CMP ####[facility] [address]wszolpfg[address] [place] [address]Dr. Grace Best TSHon 03-29-2022 TSH 1.435 uIU/mL Normal 0.358-3.740 The [facility] Comment on above: Performed By: #### T SH, LIPA, HSTROPN, CMP ####[facility] Pqwrgvitmn[address] [place] [address]Dr. Grace Best URINE MICROSCOPIC ONLYon BACTERIA SMALL Abnormal NONE SEEN [facility] Comment on above: Performed By: #### U MICRO, ERUR, DRUGRPD ####[facility] Zqjkkkmsdh[address] [place] [address]Dr. Grace Best Bacteria identified Cx Nom (U) INDICATED Normal [facility] Comment on above: Performed By: #### U MICRO, ERUR, DRUGRPD ####[facility] Nfncbzyofz80[address] [place] [address]Dr. Grace Best CAST NONE SEEN Normal NONE SEEN [facility] Comment on above: Performed By: #### U MICRO, ERUR, DRUGRPD ####[facility] Hnavjexpvj17[address] [place] [address]Dr. Grace Best Crystals LM Nom (Urine sed) SEEN Abnormal NONE SEEN [facility] Comment on above: Performed By: #### U MICRO, ERUR, DRUGRPD ####[facility] Zdojgfcvca0[address] [place] [address]Dr. Grace Best Epithelial cells LM Ql (Urine sed) FEW Abnormal NONE SEEN /RARE [facility] Comment on above: Performed By: #### U MICRO, ERUR, DRUGRPD ####[facility] Nugzcklkdx[address] [place] [address]Dr. Roxannega Best MUCOUS TRACE Abnormal NONE SEEN [facility] Comment on above: Performed By: #### U MICRO, ERUR, DRUGRPD ####[facility] Vqljftkezh4716 [place] [address]Dr. Grace Best RBC 0-2 Normal 0-2 [facility] Comment on above: Performed By: #### U MICRO, ERUR, DRUGRPD ####[facility] Msqgafdzoe5840 [place] [address]Dr. Grace Best WBC 5-10 Abnormal NONE SEEN [facility] Comment on above: Performed By: #### U MICRO, ERUR, DRUGRPD ####[facility] Ysuydlyjhl7[address] [place], [place] [address]Dr. Grace Best XR CHEST 1 Von 03-29-2022 XR CHEST 1 V Normal [facility] CBC AUTO DIFFon 03-09-2022 BASO # 0.0 103/ul Normal 0.0-0.1 [facility] Comment on above: Performed By: #### C BC ####[facility] Qeawydaaut18[address] [place], [place] [address]Dr. Grace Best Basophils/100 WBC (Bld) 0.1 % Critically low 0.2-2.0 [facility] Comment on above: Performed By: #### C BC ####[facility] Lmootaifcf[address] [place], [place] [address]Dr. Grace Best EO # 0.0 103/ul Normal 0.0-0.7 [facility] Comment on above: Performed By: #### C BC ####[facility] Xiipixeomk[address] [place], [place] [address]Dr. Grace Best Eosinophils/100 WBC (Bld) 0.0 % Critically low 0.9-7.0 [facility] Comment on above: Performed By: #### C BC ####[facility] Xepqcuvkbb35[address] [place], [place] [address]Dr. Grace Best Erythrocyte distribution width (RBC) [Ratio] 14.5 % Normal 11.0-15.0 [facility] Comment on above: Performed By: #### C BC ####[facility] Zynvfsarcw7219 [place] [address]DrGiancarlo Best Hematocrit (Bld) [Volume fraction] 34.0 % Critically low 36.0-48.0 [facility] Comment on above: Performed By: #### C BC ####[facility] Gkwzxvugey14[address] [place] [address]DrGiancarlo Best Hemoglobin (Bld) [Mass/Vol] 11.0 g/dL Critically low 12.0-16.0 [facility] Comment on above: Performed By: #### C BC ####[facility] Nwupsarsqc864[address] [place], [place] [address]Dr. Grace Best IG # 0.02 10e3/ul Normal 0.00-0.03 [facility] Comment on above: Performed By: #### C BC ####[facility] Pcflpajepp09[address] [place], [place] [address]DrGiancarlo Best IG % 0.2 % Normal 0.0-0.5 [facility] Comment on above: Performed By: #### C BC ####[facility] Eavjdybuve8[address] [place], [place] [address]DrGiancarlo Best LYMPH # 0.7 103/ul Critically low 1.2-3.8 [facility] Comment on above: Performed By: #### C BC ####[facility] Evfyodpajw25[address] [place], [place] [address]DrGiancarlo Best Lymphocytes/100 WBC (Bld) 9.2 % Critically low 20.5-60.0 [facility] Comment on above: Performed By: #### C BC ####[facility] Khflasqoef894[address] [place], [place] [address]DrGiancarlo Best MANUAL DIFF REQ NO Normal [facility] Comment on above: Performed By: #### C BC ####[facility] Kevcpllnro[address] [place], [place] [address]DrGiancarlo Best MCH (RBC) [Entitic mass] 29.6 pg Normal 26.7-34.0 [facility] Comment on above: Performed By: #### C BC ####[facility] Xjjnwikpng4114 [place] [address]Dr. Roxannega Nasir MCHC (RBC) [Mass/Vol] 32.4 g/dL Normal 29.9-35.2 [facility] Comment on above: Performed By: #### C BC ####[facility] Uysipocnjt850[address] [place], [place] [address]DrGiancarlo Best MCV (RBC) [Entitic vol] 91.4 fL Normal 81.0-99.0 [facility] Comment on above: Performed By: #### C BC ####[facility] Uqzczgpvjx99[address] [place], [place] [address]DrGiancarlo Best MONO # 0.6 103/ul Normal 0.3-0.8 [facility] Comment on above: Performed By: #### C BC ####[facility] Wymtxunrov49[address] [place], [place] [address]DrGiancarlo Best Monocytes/100 WBC (Bld) 7.2 % Normal 1.7-12.0 [facility] Comment on above: Performed By: #### C BC ####[facility] Ahkhovbfdt6966[address] [place], [place] [address]DrGiancarlo Best NEUT # 6.7 103/ul Critically high 1.4-6.5 [facility] Comment on above: Performed By: #### C BC ####[facility] Dibbzhayae48[address] [place], [place] [address]DrGiancarlo Best Neutrophils/100 WBC (Bld) 83.3 % Critically high 43.0-75.0 [facility] Comment on above: Performed By: #### C BC ####[facility] Kjfsaaqkgv[address] [place], [place] [address]DrGiancarlo Best Platelet mean volume (Bld) [Entitic vol] 8.8 fL Critically low 9.5-13.5 [facility] Comment on above: Performed By: #### C BC ####[facility] H[address] [place] [address]Gv. Grace Best PLT 370 103/ul Normal 150-450 [facility] Comment on above: Performed By: #### C BC ####[facility] Odwyozvdhl6796 [place] [id number]. Grace Best RBC 3.72 106/ul Critically low 4.20-5.40 [facility] Comment on above: Performed By: #### C BC ####[facility] Hdxcijlaun[address] [place], [place] [address]Dr. Grace Best WBC 8.0 103/ul Normal 4.0-11.0 [facility] Comment on above: Performed By: #### C BC ####[facility] Amekomkvar[address] [place], [place] [address]Dr. Grace Best BASO # 0.0 103/ul Normal 0.0-0.1 [facility] Comment on above: Performed By: #### C BC ####[facility] Uxajihhnxy[address] [place], [place] [address]Dr. Grace Best Basophils/100 WBC (Bld) 0.2 % Normal 0.2-2.0 [facility] Comment on above: Performed By: #### C BC ####[facility] Trzrgfotnl089[address] [place], [place] [address]DrGiancarlo Grace Best EO # 0.0 103/ul Normal 0.0-0.7 [facility] Comment on above: Performed By: #### C BC ####[facility] Yssimcyqdi[address] [place], [place] [address]Dr. Grace Best Eosinophils/100 WBC (Bld) 0.0 % Critically low 0.9-7.0 [facility] Comment on above: Performed By: #### C BC ####[facility] Eqzmylvcyp825[address] [place], [place] [address]Dr. Grace Best Erythrocyte distribution width (RBC) [Ratio] 14.4 % Normal 11.0-15.0 [facility] Comment on above: Performed By: #### C BC ####[facility] Wnwpybrvyr74[address] [place], [place] [address]Dr. Yiga Best Hematocrit (Bld) [Volume fraction] 39.4 % Normal 36.0-48.0 [facility] Comment on above: Performed By: #### C BC ####[facility] Jqjkgrjgus2192 [place] [address]DrGiancarlo Grace Best Hemoglobin (Bld) [Mass/Vol] 12.9 g/dL Normal 12.0-16.0 [facility] Comment on above: Performed By: #### C BC ####[facility] Bbiuavqohs523[address] [place], [place] [address]DrGiancarlo Best IG # 0.03 10e3/ul Normal 0.00-0.03 [facility] Comment on above: Performed By: #### C BC ####[facility] Bufzkqwaue6964[address] [place], [place] [address]Dr. Grace Best IG % 0.3 % Normal 0.0-0.5 [facility] Comment on above: Performed By: #### C BC ####[facility] Gwyxdfxxop50[address] [place], [place] [address]DrGiancarlo Best LYMPH # 0.8 103/ul Critically low 1.2-3.8 [facility] Comment on above: Performed By: #### C BC ####[facility] Oqznqhqrnr410[address] [place], [place] [address]DrGiancarlo Roxannega Best Lymphocytes/100 WBC (Bld) 7.7 % Critically low 20.5-60.0 [facility] Comment on above: Performed By: #### C BC ####[facility] Vajngsfelv64[address] [place], [place] [address]DrGiancarlo Best MANUAL DIFF REQ NO Normal [facility] Comment on above: Performed By: #### C BC ####[facility] Hydfftvyii85[address] [place], [place] [address]DrGiancarlo Best MCH (RBC) [Entitic mass] 29.3 pg Normal 26.7-34.0 [facility] Comment on above: Performed By: #### C BC ####[facility] Aqvsbhdfeq15[address] [place], [place] [address]DrGiancarlo Best MCHC (RBC) [Mass/Vol] 32.7 g/dL Normal 29.9-35.2 [facility] Comment on above: Performed By: #### C BC ####[facility] Fyeqoohlal7[address] [place] [address]DrGiancarlo Best MCV (RBC) [Entitic vol] 89.3 fL Normal 81.0-99.0 [facility] Comment on above: Performed By: #### C BC ####[facility] Mhevtgrvwd[address] [place], [place] [address]DrGiancarlo Best MONO # 0.5 103/ul Normal 0.3-0.8 [facility] Comment on above: Performed By: #### C BC ####[facility] Atrqshsdsx095[address] [place], [place] [address]DrGiancarlo Best Monocytes/100 WBC (Bld) 5.3 % Normal 1.7-12.0 [facility] Comment on above: Performed By: #### C BC ####[facility] Pgnjjwnjhg[address] [place], [place] [address]DrGiancarlo Best NEUT # 8.6 103/ul Critically high 1.4-6.5 [facility] Comment on above: Performed By: #### C BC ####[facility] Padangzpyo65[address] [place], [place] [address]DrGiancarlo Best Neutrophils/100 WBC (Bld) 86.5 % Critically high 43.0-75.0 [facility] Comment on above: Performed By: #### C BC ####[facility] Vswwpycaie49[address] [place], [place] [address]DrGiancarlo Best Platelet mean volume (Bld) [Entitic vol] 8.6 fL Critically low 9.5-13.5 [facility] Comment on above: Performed By: #### C BC ####[facility] Zueeaarwaz[address] [place], [place] [address]DrGiancarlo Best PLT 466 103/ul Critically high 150-450 [facility] Comment on above: Performed By: #### C BC ####[facility] Mtzjetbvvp65[address] [place], [place] [address]Dr. Grace Best RBC 4.41 106/ul Normal 4.20-5.40 [facility] Comment on above: Performed By: #### C BC ####[facility] Gyfvspnvwh2642 [place] [id number]. Grace Best WBC 10.0 103/ul Normal 4.0-11.0 [facility] Comment on above: Performed By: #### C BC ####[facility] Xzolknhfcy[address] [place] [address]Dr. Grace Best Covid-19 PCR (CVDTBH)on 02-15 SARS-CoV-2 (COVID-19) RNA LOUISE+probe Ql (Unsp spec) Detected Critically abnormal NOT DETECTED [facility] Comment on above: Result Comment: This test is not yet approved or cleared by the [place] FDA. When there are no FDA-approved or cleared tests available, and other criteria are met, FDA can make tests available under an emergency access mechanism called an Emergency Use Authorization (EUA). The EUA for this test is supported by the [employer] of Health and Human Service's declaration that circumstances exist to justify the emergency use of in vitro diagnostics for the detection and/or diagnosis of the virus that causes COVID-19. This EUA will remain in effect for the duration of the COVID-19 declaration justifying emergency of IVDs, unless it is terminated or revoked by the FDA (after which the test may no longer be used). Performed By: #### C VDTBH ####[facility] Jlfonmrsqn87[address] [place] [address]Dr. Grace Best POINT OF CARE GLUCOSEon 02-15 Glucose [Mass/Vol] 429 mg/dL Critically high 74-106 [facility] Comment on above: Performed By: #### P OCGLUC ####[facility] Tjdxwjwtir4498 [place] [address]Dr. Grace Best Glucose [Mass/Vol] 447 mg/dL Critically high 74-106 [facility] Comment on above: Performed By: #### P OCGLUC ####[facility] Hifronyrdy2675 [place] [address]Dr. Grace Best Glucose [Mass/Vol] 169 mg/dL Critically high 74-106 [facility] Comment on above: Performed By: #### P OCGLUC ####[facility] Ktufzxzkyp8844 [place] [address]Dr. Grace Best Glucose [Mass/Vol] 150 mg/dL Critically high -106 [facility] Comment on above: Performed By: #### P OCGLUC ####[facility] Zmszwygogo3169 [place] [address]Dr. Grace Best Glucose [Mass/Vol] 149 mg/dL Critically high 74-106 [facility] Comment on above: Performed By: #### P OCGLUC ####[facility] Crobryfviv[address] [place], [place] [address]Dr. Grace Best Glucose [Mass/Vol] 65 mg/dL Critically low 74-106 [facility] Comment on above: Performed By: #### P OCGLUC ####[facility] Pbtgqdupwr[address] [place], [place] [address]Dr. Grace Nasir PROF 14(COMP METB)on 03-09- 022 Albumin [Mass/Vol] 3.3 g/dL Critically low 3.4-5.0 [facility] Comment on above: Performed By: #### C MP ####[facility] Yiaxzdvast1084 [place] [address]Dr. Roxannega Nasir Albumin/Globulin [Mass ratio] 0.9 {ratio} Normal [facility] Comment on above: Performed By: #### C MP ####[facility] Zqgsoqjwil9308 [place] [address]Dr. Roxannega Nasir ALP [Catalytic activity/Vol] 79 U/L Normal 46-116 [facility] Comment on above: Performed By: #### C MP ####[facility] Tiuickxokb45[address] [place], [place] [address]Dr. Grace Best ALT [Catalytic activity/Vol] 16 U/L Normal 14-59 [facility] Comment on above: Performed By: #### C MP ####[facility] Chryclmthm[address] [place], [place] [address]Dr. Grace Best Anion gap [Moles/Vol] 6.9 mmol/L Normal [facility] Comment on above: Performed By: #### C MP ####[facility] Vhzemvzqym23[address] [place] [address]Dr. Grace Best AST [Catalytic activity/Vol] 10 U/L Critically low 15-37 [facility] Comment on above: Performed By: #### C MP ####[facility] Iisfkmoqyo3[address] [place], [place] [address]Dr. Grace Nasir Bilirubin [Mass/Vol] 0.4 mg/dL Normal 0.2-1.0 [facility] Comment on above: Performed By: #### C MP ####[facility] Pxmynmuhnc[address] [place], [place] [address]Dr. Grace Nasir Calcium [Mass/Vol] 8.8 mg/dL Normal 8.5-10.1 [facility] Comment on above: Performed By: #### C MP ####[facility] Wroqnvsmox14[address] [place], [place] [address]Dr. Grace Nasir Chloride [Moles/Vol] 99 mmol/L Normal 98-107 [facility] Comment on above: Performed By: #### C MP ####[facility] Zerikmfiov17[address] [place], [place] [address]Dr. Grace Nasir CO2 [Moles/Vol] 33.0 mmol/L Critically high 21.0-32.0 [facility] Comment on above: Performed By: #### C MP ####[facility] Qrduqdclme[address] [place], [place] [address]Dr. Graec Nasir Creatinine [Mass/Vol] 0.63 mg/dL Normal 0.55-1.02 [facility] Comment on above: Performed By: #### C MP ####[facility] Cyynnsxrld93[address] [place], [place] [address]Dr. Grace Best EGFR-AF NORWEGIAN >60 Normal >=60 [facility] Comment on above: Performed By: #### C MP ####[facility] Kwnndekjzc6[address] [place], [place] [address]Dr. Grace Best EGFR-NON AF NORWEGIAN >60 Normal >=60 [facility] Comment on above: Performed By: #### C MP ####[facility] Gdaopbaqaw[address] [place] [address]Dr. Grace Best Globulin (S) [Mass/Vol] 3.6 g/dL Normal [facility] Comment on above: Performed By: #### C MP ####[facility] Mibxnifvdb8312 [place] [address]Dr. Grace Best Glucose [Mass/Vol] 355 mg/dL Critically high 74-106 [facility] Comment on above: Performed By: #### C MP ####[facility] Dlmpgwevvq3293 [place] [address]Dr. Grace Best Potassium [Moles/Vol] 3.9 mmol/L Normal 3.5-5.1 [facility] Comment on above: Performed By: #### C MP ####[facility] Vltnvmvxqr[address] [place], [place] [address]Dr. Grace Best Protein [Mass/Vol] 6.9 g/dL Normal 6.4-8.2 [facility] Comment on above: Performed By: #### C MP ####[facility] Fhwyvvvyib7[address] [place], [place] [address]Dr. Grace Best Sodium [Moles/Vol] 135 mmol/L Critically low 136-145 [facility] Comment on above: Performed By: #### C MP ####[facility] Hdiryzwoqs6646 [place] [address]Dr. Grace Best Urea nitrogen [Mass/Vol] 14.0 mg/dL Normal 7.0-18.0 [facility] Comment on above: Performed By: #### C MP ####[facility] Flssmxijbj[address] [place], [place] [address]Dr. Grace Best Urea nitrogen/Creatinine [Mass ratio] 22.2 mg/mg Normal [facility] Comment on above: Performed By: #### C MP ####[facility] Ocghnevcsb2803 [place] [address]Dr. Grace Nasir Albumin [Mass/Vol] 4.0 g/dL Normal 3.4-5.0 [facility] Comment on above: Performed By: #### C MP ####[facility] Sxzvjjopjo2684 [place] [address]Dr. Grace Nasir Albumin/Globulin [Mass ratio] 0.9 {ratio} Normal [facility] Comment on above: Performed By: #### C MP ####[facility] Efhwsqaiqk0969 [place] [address]Dr. Grace Nasir ALP [Catalytic activity/Vol] 100 U/L Normal 46-116 [facility] Comment on above: Performed By: #### C MP ####[facility] Ggacipupxp[address] [place], [place] [address]Dr. Grace Nasir ALT [Catalytic activity/Vol] 19 U/L Normal 14-59 [facility] Comment on above: Performed By: #### C MP ####[facility] Vgiafwrnrb[address] [place], [place] [address]Dr. Grace Best Anion gap [Moles/Vol] 9.8 mmol/L Normal [facility] Comment on above: Performed By: #### C MP ####[facility] Ubkwimdxuo65[address] [place], [place] [address]Dr. Grace Nasir AST [Catalytic activity/Vol] 12 U/L Critically low 15-37 [facility] Comment on above: Performed By: #### C MP ####[facility] Enoysevxgp[address] [place], [place] [address]Dr. Grace Best Bilirubin [Mass/Vol] 0.4 mg/dL Normal 0.2-1.0 [facility] Comment on above: Performed By: #### C MP ####[facility] Xhpupwbtyb[address] [place], [place] [address]Dr. Grace Best Calcium [Mass/Vol] 9.9 mg/dL Normal 8.5-10.1 [facility] Comment on above: Performed By: #### C MP ####[facility] Bhjcwcjmvn[address] [place], [place] [address]Dr. Grace Best Chloride [Moles/Vol] 97 mmol/L Critically low 98-107 [facility] Comment on above: Performed By: #### C MP ####[facility] Jyumdsdpux3203 [place] [address]Dr. Grace Best CO2 [Moles/Vol] 36.3 mmol/L Critically high 21.0-32.0 [facility] Comment on above: Performed By: #### C MP ####[facility] Jcmhofkdkj7771 [place] [address]Dr. Grace Best Creatinine [Mass/Vol] 0.64 mg/dL Normal 0.55-1.02 [facility] Comment on above: Performed By: #### C MP ####[facility] Enobfycgsj[address] [place], [place] [address]Dr. Grace Best EGFR-AF NORWEGIAN >60 Normal >=60 [facility] Comment on above: Performed By: #### C MP ####[facility] Nvwkunlvak[address] [place], [place] [address]Dr. Grace Best EGFR-NON AF NORWEGIAN >60 Normal >=60 [facility] Comment on above: Performed By: #### C MP ####[facility] Twlzudqoqi[address] [place], [place] [address]Dr. Grace Best Globulin (S) [Mass/Vol] 4.3 g/dL Normal [facility] Comment on above: Performed By: #### C MP ####[facility] Fplbkctctv[address] [place], [place] [address]Dr. Grace Best Glucose [Mass/Vol] 72 mg/dL Critically low 74-106 [facility] Comment on above: Performed By: #### C MP ####[facility] Qbhedfyumd30[address] [place], [place] [address]Dr. Grace Best Potassium [Moles/Vol] 3.1 mmol/L Critically low 3.5-5.1 [facility] Comment on above: Performed By: #### C MP ####[facility] Jmeljyahuq[address] [place], [place] [address]Dr. Grace Best Protein [Mass/Vol] 8.3 g/dL Critically high 6.4-8.2 [facility] Comment on above: Performed By: #### C MP ####[facility] Gykusfbfkq0473 [place] [id number]. Grace Best Sodium [Moles/Vol] 140 mmol/L Normal 136-145 [facility] Comment on above: Performed By: #### C MP ####[facility] Ulpdcehhvg1648 [place] [id number]. Grace Best Urea nitrogen [Mass/Vol] 21.0 mg/dL Critically high 7.0-18.0 [facility] Comment on above: Performed By: #### C MP ####[facility] Spgwcxaagv[address] [place] [id number]. Grace Best Urea nitrogen/Creatinine [Mass ratio] 32.8 mg/mg Normal [facility] Comment on above: Performed By: #### C MP ####[facility] Qkekimruic3888 [place] [address]Dr. Grace Best XR ABD FLAT UP_PA Raz 03-09 XR ABD FLAT UP_PA CH Normal [facility] Follow Up (Endocrinology)on 02-28-2022 Follow Up (Endocrinology) No report was sent Normal [facility] CBC AUTO DIFFon 02-24-2022 BASO # 0.0 103/ul Normal 0.0-0.1 [facility] Comment on above: Performed By: #### C BC ####[facility] Cfokenxavf3412 [place] [id number]. Grace Best Basophils/100 WBC (Bld) 0.5 % Normal 0.2-2.0 [facility] Comment on above: Performed By: #### C BC ####[facility] Bvnjpinqmz4951 [place] [id number]. Grace Nasir EO # 0.0 103/ul Normal 0.0-0.7 [facility] Comment on above: Performed By: #### C BC ####[facility] Isubvuqxvr9520 [place] [id number]. Grace Best Eosinophils/100 WBC (Bld) 0.3 % Critically low 0.9-7.0 [facility] Comment on above: Performed By: #### C BC ####[facility] Ykdinixmii5601 [place] [address]Dr. Grace Best Erythrocyte distribution width (RBC) [Ratio] 14.4 % Normal 11.0-15.0 [facility] Comment on above: Performed By: #### C BC ####[facility] Birsauybnf3207 [place] [address]Dr. Grace Best Hematocrit (Bld) [Volume fraction] 31.4 % Critically low 36.0-48.0 [facility] Comment on above: Performed By: #### C BC ####[facility] Scyiknlvgh[address] [place], [place] [address]Dr. Grace Best Hemoglobin (Bld) [Mass/Vol] 10.4 g/dL Critically low 12.0-16.0 [facility] Comment on above: Performed By: #### C BC ####[facility] Ekwlaypmus[address] [place], [place] [address]Dr. Grace Best IG # 0.01 10e3/ul Normal 0.00-0.03 [facility] Comment on above: Performed By: #### C BC ####[facility] Ornsifyucp[address] [place], [place] [address]Dr. Grace Best IG % 0.1 % Normal 0.0-0.5 [facility] Comment on above: Performed By: #### C BC ####[facility] Abxlrroevd76[address] [place], [place] [address]Dr. Grace Best LYMPH # 1.3 103/ul Normal 1.2-3.8 [facility] Comment on above: Performed By: #### C BC ####[facility] Dwkokyfgeh[address] [place], [place] [address]Dr. Grace Best Lymphocytes/100 WBC (Bld) 17.9 % Critically low 20.5-60.0 [facility] Comment on above: Performed By: #### C BC ####[facility] Qtwuufhcda17[address] [place], [place] [address]Dr. Grace Best MANUAL DIFF REQ NO Normal [facility] Comment on above: Performed By: #### C BC ####[facility] Lnstvwizop9032 [place] [address]Dr. Grace Best MCH (RBC) [Entitic mass] 29.5 pg Normal 26.7-34.0 [facility] Comment on above: Performed By: #### C BC ####[facility] Wpmdmifxvt49[address] [place], [place] [address]Dr. Grace Best MCHC (RBC) [Mass/Vol] 33.1 g/dL Normal 29.9-35.2 [facility] Comment on above: Performed By: #### C BC ####[facility] Efxocudtot[address] [place], [place] [address]Dr. Grace Best MCV (RBC) [Entitic vol] 89.0 fL Normal 81.0-99.0 [facility] Comment on above: Performed By: #### C BC ####[facility] Wdyorjmxxs[address] [place], [place] [address]Dr. Grace Best MONO # 0.6 103/ul Normal 0.3-0.8 [facility] Comment on above: Performed By: #### C BC ####[facility] V[address]wzsrfq[address] [place], [place] [address]Dr. Grace Best Monocytes/100 WBC (Bld) 7.7 % Normal 1.7-12.0 [facility] Comment on above: Performed By: #### C BC ####[facility] Olkqkdynax[address] [place], [place] [address]Dr. Grace Best NEUT # 5.4 103/ul Normal 1.4-6.5 [facility] Comment on above: Performed By: #### C BC ####[facility] [address]seofv[address]ok[address] [place], [place] [address]Dr. Grace Nasir Neutrophils/100 WBC (Bld) 73.5 % Normal 43.0-75.0 [facility] Comment on above: Performed By: #### C BC ####[facility] Jprbfsbwij[address] [place], [place] [address]Dr. Grace Best Platelet mean volume (Bld) [Entitic vol] 8.9 fL Critically low 9.5-13.5 [facility] Comment on above: Performed By: #### C BC ####[facility] Rwjpnzwkha8562 [place] [id number]. Grace Best PLT 464 103/ul Critically high 150-450 [facility] Comment on above: Performed By: #### C BC ####[facility] Rivnaowqdt9408 [place], [place] [address]Wo. Grace Best RBC 3.53 106/ul Critically low 4.20-5.40 [facility] Comment on above: Performed By: #### C BC ####[facility] Amglhudqvk0474 [place] [id number]. Grace Best WBC 7.4 103/ul Normal 4.0-11.0 [facility] Comment on above: Performed By: #### C BC ####[facility] Trairbwlmk[address] [place] [address] ABD/PELV W CONon 02-25-[address] ABD/PELV W CON Normal [facility] PROF 14(COMP METB)on 022 Albumin [Mass/Vol] 3.1 g/dL Critically low 3.4-5.0 [facility] Comment on above: Performed By: #### C MP ####[facility] Ltpheloicj2505 [place] [address]Dr. Grace Best Albumin/Globulin [Mass ratio] 0.8 {ratio} Normal [facility] Comment on above: Performed By: #### C MP ####[facility] Tnspxdgqvh7892 [place] [id number]. Grace Best ALP [Catalytic activity/Vol] 95 U/L Normal 46-116 [facility] Comment on above: Performed By: #### C MP ####[facility] Pkfpfftpay4690 [place] [address]Dr. Grace Nasir ALT [Catalytic activity/Vol] 12 U/L Critically low 14-59 [facility] Comment on above: Performed By: #### C MP ####[facility] Wkkwtryaqp1223 [place] [address]Dr. Roxannega Nasir Anion gap [Moles/Vol] 8.8 mmol/L Normal [facility] Comment on above: Performed By: #### C MP ####[facility] Mpczstbpwh3969 [place] [address]Dr. Grace Best AST [Catalytic activity/Vol] 7 U/L Critically low 15-37 [facility] Comment on above: Performed By: #### C MP ####[facility] Mvxupglxht[address] [place], [place] [address]Dr. Grace Nasir Bilirubin [Mass/Vol] 0.2 mg/dL Normal 0.2-1.0 [facility] Comment on above: Performed By: #### C MP ####[facility] Pbkesxsogf[address] [place], [place] [address]Dr. Roxannega Nasir Calcium [Mass/Vol] 8.5 mg/dL Normal 8.5-10.1 [facility] Comment on above: Performed By: #### C MP ####[facility] Wjbwjarakt[address] [place], [place] [address]Dr. Grace Best Chloride [Moles/Vol] 96 mmol/L Critically low 98-107 [facility] Comment on above: Performed By: #### C MP ####[facility] Rowehkpugl[address] [place], [place] [address]Dr. Grace Nasir CO2 [Moles/Vol] 24.8 mmol/L Normal 21.0-32.0 [facility] Comment on above: Performed By: #### C MP ####[facility] Whjvpdgxds[address] [place], [place] [address]Dr. Roxannega Nasir Creatinine [Mass/Vol] 0.63 mg/dL Normal 0.55-1.02 [facility] Comment on above: Performed By: #### C MP ####[facility] Xnuqqibbrw[address] [place], [place] [address]Dr. Grace Best EGFR-AF NORWEGIAN >60 Normal >=60 [facility] Comment on above: Performed By: #### C MP ####[facility] Fbjntczbzw[address] [place], [place] [address]Dr. Grace Best EGFR-NON AF NORWEGIAN >60 Normal >=60 [facility] Comment on above: Performed By: #### C MP ####[facility] Qnwmzdhykt5522 [place] [address]Dr. Grace Best Globulin (S) [Mass/Vol] 3.7 g/dL Normal [facility] Comment on above: Performed By: #### C MP ####[facility] Lkpwrmhzfk1145 [place] [address]Dr. Grace Best Glucose [Mass/Vol] 201 mg/dL Critically high 74-106 [facility] Comment on above: Performed By: #### C MP ####[facility] Hvbtygytqm5083 [place] [address]Dr. Grace Best Potassium [Moles/Vol] 3.6 mmol/L Normal 3.5-5.1 [facility] Comment on above: Performed By: #### C MP ####[facility] Ifpztdqmto1393 [place] [address]Dr. Grace Best Protein [Mass/Vol] 6.8 g/dL Normal 6.4-8.2 [facility] Comment on above: Performed By: #### C MP ####[facility] Nxunsvkzuc[address] [place], [place] [address]Dr. Grace Best Sodium [Moles/Vol] 126 mmol/L Critically low 136-145 [facility] Comment on above: Performed By: #### C MP ####[facility] Mzwsohbxls3455 [place] [address]Dr. Grace Best Urea nitrogen [Mass/Vol] 19.0 mg/dL Critically high 7.0-18.0 [facility] Comment on above: Performed By: #### C MP ####[facility] Bmaapllcgp9003 [place] [address]Dr. Grace Best Urea nitrogen/Creatinine [Mass ratio] 30.2 mg/mg Normal [facility] Comment on above: Performed By: #### C MP ####[facility] Kwzuuagxvm7953 [place] [address]Dr. Grace Nasir PROTIMEon 02-24-2022 INR Coag (PPP) [Relative time] 0.96 {INR} Normal [facility] Comment on above: Performed By: #### P TT, PT ####[facility] Ztjvvojtqg[address] [place], [place] [address]Dr. Grace Best INR GUIDELINES SEE BELOW Normal [facility] Comment on above: Result Comment: BRANDY RED INR: 2.0 - 3.0 CONDITIONS NOT LISTED BELOW 2.5 - 3.5 FOR PROSTHETIC HEART VALVE REPLACEMENT 2.5 - 3.5 RECURRENT THROMBOSIS Performed By: #### P TT, PT ####[facility] Niqxouwqej[address] [place], [place] [address]Dr. Grace Best PT Coag (PPP) [Time] 10.4 s Normal 9.0-11.6 [facility] Comment on above: Performed By: #### P TT, PT ####[facility] Wknngakjkn[address] [place], [place] [address]Dr. Grace Best PTTon 02-24-2022 aPTT Coag (Bld) [Time] 29.7 s Normal 22.3-36.2 [facility] Comment on above: Performed By: #### P TT, PT ####[facility] Ofrapywsax[address] [place], [place] [address]Dr. Grace Best CBC AUTO DIFFon 02-01-2022 BASO # 0.1 103/ul Normal 0.0-0.1 [facility] Comment on above: Performed By: #### C BC ####[facility] Oxlzyqzrpm[address] [place], [place] [address]Dr. Grace Best Basophils/100 WBC (Bld) 0.7 % Normal 0.2-2.0 [facility] Comment on above: Performed By: #### C BC ####[facility] Hccbgmdegi[address] [place], [place] [address]Dr. Grace Best EO # 0.1 103/ul Normal 0.0-0.7 [facility] Comment on above: Performed By: #### C BC ####[facility] Snzzgrpclb[address] [place], [place] [address]Dr. Grace Best Eosinophils/100 WBC (Bld) 1.3 % Normal 0.9-7.0 [facility] Comment on above: Performed By: #### C BC ####[facility] Sulmsjqofy9925 [place] [address]Dr. Grace Best Erythrocyte distribution width (RBC) [Ratio] 17.5 % Critically high 11.0-15.0 [facility] Comment on above: Performed By: #### C BC ####[facility] Bunmyrqcqa0289 [place] [address]Dr. Grace Best Hematocrit (Bld) [Volume fraction] 32.7 % Critically low 36.0-48.0 [facility] Comment on above: Performed By: #### C BC ####[facility] Xaoxjqiawa[address] [place], [place] [address]Dr. Grace Best Hemoglobin (Bld) [Mass/Vol] 10.3 g/dL Critically low 12.0-16.0 [facility] Comment on above: Performed By: #### C BC ####[facility] Sxmvopbkcq[address] [place], [place] [address]Dr. Grace Best IG # 0.03 10e3/ul Normal 0.00-0.03 [facility] Comment on above: Performed By: #### C BC ####[facility] Mhrkqrxbcz[address] [place], [place] [address]Dr. Grace Best IG % 0.4 % Normal 0.0-0.5 [facility] Comment on above: Performed By: #### C BC ####[facility] Ynzdktxkjg[address] [place], [place] [address]Dr. Grace Best LYMPH # 1.2 103/ul Normal 1.2-3.8 [facility] Comment on above: Performed By: #### C BC ####[facility] Lhnpybhpog[address] [place], [place] [address]Dr. Grace Best Lymphocytes/100 WBC (Bld) 15.8 % Critically low 20.5-60.0 [facility] Comment on above: Performed By: #### C BC ####[facility] Puezggsrxl50[address] [place], [place] [address]Dr. Grace Nasir MANUAL DIFF REQ NO Normal [facility] Comment on above: Performed By: #### C BC ####[facility] Zaamtttrdt8422 [place] [address]Dr. Grace Nasir MCH (RBC) [Entitic mass] 30.0 pg Normal 26.7-34.0 [facility] Comment on above: Performed By: #### C BC ####[facility] Lbmkhfufkl6922 [place] [address]Dr. Grace Nasir MCHC (RBC) [Mass/Vol] 31.5 g/dL Normal 29.9-35.2 [facility] Comment on above: Performed By: #### C BC ####[facility] Hqhknscxoy4257 [place] [address]Dr. Grace Best MCV (RBC) [Entitic vol] 95.3 fL Normal 81.0-99.0 [facility] Comment on above: Performed By: #### C BC ####[facility] Ydzmlyrdyt[address] [place], [place] [address]DrGiancarlo Best MONO # 0.6 103/ul Normal 0.3-0.8 [facility] Comment on above: Performed By: #### C BC ####[facility] Mztislkygh69[address] [place], [place] [address]Dr. Grace Best Monocytes/100 WBC (Bld) 7.5 % Normal 1.7-12.0 [facility] Comment on above: Performed By: #### C BC ####[facility] Prflpcizny[address] [place], [place] [address]DrGiancarlo Best NEUT # 5.6 103/ul Normal 1.4-6.5 [facility] Comment on above: Performed By: #### C BC ####[facility] Grlnylvjoi85[address] [place], [place] [address]DrGiancarlo Best Neutrophils/100 WBC (Bld) 74.3 % Normal 43.0-75.0 [facility] Comment on above: Performed By: #### C BC ####[facility] Wfmuufrpul000[address] [place], [place] [address]DrGiancarlo Best Platelet mean volume (Bld) [Entitic vol] 8.2 fL Critically low 9.5-13.5 [facility] Comment on above: Performed By: #### C BC ####[facility] Yqqhwfbxjb9217 [place] [id number]. Grace Best PLT 647 103/ul Critically high 150-450 [facility] Comment on above: Performed By: #### C BC ####[facility] Xrmdvtykhd4995 [place], [place] [address]Mg. Grace Best RBC 3.43 106/ul Critically low 4.20-5.40 [facility] Comment on above: Performed By: #### C BC ####[facility] Gfvivhbkxp1318 [place], [place] [address]Kp. Grace Best WBC 7.6 103/ul Normal 4.0-11.0 [facility] Comment on above: Performed By: #### C BC ####[facility] Uuoumvjoot8628 [place] [id number]. Grace Best CRPon 02-01-2022 CRP 1.6 mg/dL Critically high <=1.0 [facility] Comment on above: Performed By: #### B MP, CRP ####[facility] Igycindnak[address] [place] [address] CSPINE WO CONon 2 CT CSPINE WO CON Normal [facility] CT LSPINE WO CONon [address] LSPINE WO CON Normal [facility] CT TSPINE WO CONon 2 CT TSPINE WO CON Normal [facility] PROF CHEM 8 (BAS METB)on Anion gap [Moles/Vol] 10.9 mmol/L Normal [facility] Comment on above: Performed By: #### B MP, CRP ####[facility] Dxfmbgjbro9705 [place] [id number]. Grace Best Calcium [Mass/Vol] 9.2 mg/dL Normal 8.5-10.1 [facility] Comment on above: Performed By: #### B MP, CRP ####[facility] Tuxuxmvhuh4869 [place] [id number]. Grace Best Chloride [Moles/Vol] 100 mmol/L Normal 98-107 [facility] Comment on above: Performed By: #### B MP, CRP ####[facility] Zpmupwdryd0146 [place] [address]Dr. Grace Best CO2 [Moles/Vol] 27.3 mmol/L Normal 21.0-32.0 [facility] Comment on above: Performed By: #### B MP, CRP ####[facility] Ruddutnsni[address] [place], [place] [address]Dr. Grace Best Creatinine [Mass/Vol] 0.68 mg/dL Normal 0.55-1.02 [facility] Comment on above: Performed By: #### B MP, CRP ####[facility] Rtzlitgeuy[address] [place], [place] [address]Dr. Grace Best EGFR-AF NORWEGIAN >60 Normal >=60 [facility] Comment on above: Performed By: #### B MP, CRP ####[facility] Dqtyyzmwpy[address] [place], [place] [address]Dr. Grace Best EGFR-NON AF NORWEGIAN >60 Normal >=60 [facility] Comment on above: Performed By: #### B MP, CRP ####[facility] Tdalufycze[address] [place], [place] [address]Dr. Grace Best Glucose [Mass/Vol] 85 mg/dL Normal 74-106 [facility] Comment on above: Performed By: #### B MP, CRP ####[facility] Cxwyegmtjm65[address] [place], [place] [address]Dr. Grcae Best Potassium [Moles/Vol] 4.2 mmol/L Normal 3.5-5.1 [facility] Comment on above: Performed By: #### B MP, CRP ####[facility] Oarvijqarg[address] [place], [place] [address]Dr. Grace Best Sodium [Moles/Vol] 134 mmol/L Critically low 136-145 [facility] Comment on above: Performed By: #### B MP, CRP ####[facility] [address]ucxfcf[address] [place] [address]Pc. Grace Best Urea nitrogen [Mass/Vol] 17.0 mg/dL Normal 7.0-18.0 [facility] Comment on above: Performed By: #### B MP, CRP ####[facility] Luijkfoblp4548 [place], [place] [address]Ii. Grace Best Urea nitrogen/Creatinine [Mass ratio] 25.0 mg/mg Normal [facility] Comment on above: Performed By: #### B MP, CRP ####[facility] Yajhfzuddi4732 [place], [place] [address]Sn. Grace Best SED RATE WESTERGRENon 2021 SED RATE 78 mm/hr Critically high <=30 [facility] Comment on above: Performed By: #### S EDR ####[facility] Eryupuoopu8642 [place], [place] [address]Zm. Grace Best Glucose Poct Glucometerson 0 01-09-2022 Glucose [Mass/Vol] 288 mg/dL Normal [facility] Comment on above: Result Comment: [facility] Glucose Reference Range is dependent on time and content of last meal. Glucose of more than 200 mg/dL in a nonstressed, ambulatory subject supports the diagnosis of Diabetes Mellitus.PERFORMED BY:[place] [address] [address] [place], [place] [phone] MEDICAL DIRECTORELI FINK M.D. Performed By: #### G LUDIANNE ####Point of Care testing, Automated erythrocytes count in urine sediment (number/area)Ordered By: Nirav Huerta on 01-08-2022 RBC Auto (Urine sed) [#/Area] 3-4 [HPF] 0-4 [facility] Automated leukocytes count i n urine sediment (number/area)Ordered By: Nirav Huerta on 01-08-2022 WBC Auto (Urine sed) [#/Area] 10-19 [HPF] 0-4 [facility] Basic Metabolic Panelon 12-16 Anion gap [Moles/Vol] 12.3 mmol/L Normal 6.0-15.0 [facility] Comment on above: Performed By: #### B MP ####[address] [place] [address] [facility] Calcium [Mass/Vol] 8.7 mg/dL Normal 8.2-10.2 [facility] Comment on above: Performed By: #### B MP ####[address] [address] [facility] Chloride [Moles/Vol] 113 mmol/L Normal 95-114 [facility] Comment on above: Performed By: #### B MP ####[address] [address] [facility] CO2 [Moles/Vol] 18.8 mmol/L Low 22.0-30.0 [facility] Comment on above: Performed By: #### B MP ####[place] [id number] [facility] Creatinine [Mass/Vol] 0.90 mg/dL Significan t change down 0.44-1.03 [facility] Comment on above: Performed By: #### B MP ####[address] [address] [facility] Creatinine Clr Calc Pharmacy 62.10 [facility] Comment on above: Result Comment: PERF ORMED BY:[place] [address] [address] [place], [place] [phone] MEDICAL ALTAGRACIA FINK M.D. Performed By: #### B MP ####[place] [id number] [facility] Estimated GFR ( Martha > 60 [facility] Comment on above: Result Comment: GFR estimated reference range: According to KDOQI guidelines, <60 ml/min/1.73m2 is sufficient to diagnose a patient with chronic kidney disease. Performed By: #### B MP ####[address] [address] [facility] Estimated GFR (Non- Am > 60 [facility] Comment on above: Performed By: #### B MP ####[place] [id number] [facility] Glucose [Mass/Vol] 267 mg/dL Significant change up 70-100 [facility] Comment on above: Result Comment: [place] Glucose Reference Range is dependent on time and content of last meal. Glucose of more than 200 mg/dL in a nonstressed, ambulatory subject supports the diagnosis of Diabetes Mellitus. ADA recommended reference range Performed By: #### B MP ####[address] [place] [address] [facility] Potassium [Moles/Vol] 4.1 mmol/L Normal 3.5-5.1 [facility] Comment on above: Performed By: #### B MP ####[address] [place] [address] [facility] Sodium [Moles/Vol] 140 mmol/L Significant change down 136-146 [facility] Comment on above: Performed By: #### B MP ####[address] [place] [address] [facility] Urea nitrogen [Mass/Vol] 18 mg/dL Normal 9-23 [facility] Comment on above: Performed By: #### B MP ####[address] [place] [address] [facility] Anion gap [Moles/Vol] Not performed Normal 6.0-15.0 [facility] Comment on above: Order Comment: Comme nt add Performed By: #### H CGQUAL, MG, BMP ####[address] [place] [address] [place] Calcium [Mass/Vol] 9.1 mg/dL Normal 8.2-10.2 [facility] Comment on above: Order Comment: Comme nt add Performed By: #### H CGQUAL, MG, BMP ####[address] [place] [address] [place] Chloride [Moles/Vol] 100 mmol/L Normal 95-114 [facility] Comment on above: Order Comment: Comme nt add Performed By: #### H CGQUAL, MG, BMP ####[address] [place] [address] [place] CO2 [Moles/Vol] mmol/L Low 22.0-30.0 [facility] Comment on above: Order Comment: Comme nt add Performed By: #### H CGQUAL, MG, BMP ####[place] [address] [place] [id number] [facility] Creatinine [Mass/Vol] 1.41 mg/dL High 0.44-1.03 [facility] Comment on above: Order Comment: Comme nt add Performed By: #### H CGQUAL, MG, BMP ####[place] [id number] [facility] Creatinine Clr Calc Pharmacy 39.64 [place] [facility] Comment on above: Order Comment: Comme nt add Performed By: #### H CGQUAL, MG, BMP ####[address] Estimated GFR ( Martha 47 [facility] Comment on above: Order Comment: Comme nt add Result Comment: GFR estimated reference range: According to KDOQI guidelines, <60 ml/min/1.73m2 is sufficient to diagnose a patient with chronic kidney disease. Performed By: #### H CGQUAL, MG, BMP ####[place] [id number] [facility] Estimated GFR (Non- Am 39 [facility] Comment on above: Order Comment: Comme nt add Performed By: #### H CGQUAL, MG, BMP ####[place] [id number] [facility] Glucose [Mass/Vol] 823 mg/dL Off scale high 70-100 [facility] Comment on above: Order Comment: Comme nt add Result Comment: Crit ical value result called at 1844 on 01/08/22 Random Glucose Reference Range is dependent on time and content of last meal. Glucose of more than 200 mg/dL in a nonstressed, ambulatory subject supports the diagnosis of Diabetes Mellitus. ADA recommended reference range Performed By: #### H CGQUAL, MG, BMP ####[place] [id number] [facility] Potassium [Moles/Vol] 5.3 mmol/L High 3.5-5.1 [facility] Comment on above: Order Comment: Comme nt add Performed By: #### H MATT MG, BMP ####[place] [address] [place] [address] [facility] Sodium [Moles/Vol] 132 mmol/L Low 136-146 [facility] Comment on above: Order Comment: Comme nt add Performed By: #### H MATT MG, BMP ####[place] [address] [place] [address] [facility] Urea nitrogen [Mass/Vol] 24 mg/dL High 9-23 [facility] Comment on above: Order Comment: Comme nt add Performed By: #### H MATT MG, BMP ####[address] [address] [facility] Anion gap [Moles/Vol] 33.6 mmol/L High 6.0-15.0 [facility] Comment on above: Performed By: #### B ARMIN, BHOB ####[address] [address] [facility] Calcium [Mass/Vol] 9.2 mg/dL Normal 8.2-10.2 [facility] Comment on above: Performed By: #### Leslie FUNEZ, BHOB ####[address] [address] [facility] Chloride [Moles/Vol] 99 mmol/L Normal 95-114 [facility] Comment on above: Performed By: #### B ARMIN, BHOB ####[address] [address] [facility] CO2 [Moles/Vol] 7.4 mmol/L Low 22.0-30.0 [facility] Comment on above: Performed By: #### B ARMIN, BHOB ####[address] [address] [facility] Creatinine [Mass/Vol] 1.37 mg/dL Significan t change up 0.44-1.03 [facility] Comment on above: Performed By: #### B ARMIN, BHOB ####[facility] [place] [address] [facility] Creatinine Clr Calc Pharmacy 40.80 [facility] Comment on above: Performed By: #### B EVA FUNEZ ####[facility] [place] [address] [facility] Estimated GFR ( Martha 48 [facility] Comment on above: Result Comment: GFR estimated reference range: According to KDOQI guidelines, <60 ml/min/1.73m2 is sufficient to diagnose a patient with chronic kidney disease. Performed By: #### B AWA FUNEZOB ####[place] [address] [place] [address] [facility] Estimated GFR (Non- Am 40 [facility] Comment on above: Performed By: #### B AWA FUNEZOB ####[place] [address] [place] [id number] [facility] Glucose [Mass/Vol] 753 mg/dL Normal 70-100 [facility] Comment on above: Result Comment: Crit ical value result called at 1657 on 01/08/22 Random Glucose Reference Range is dependent on time and content of last meal. Glucose of more than 200 mg/dL in a nonstressed, ambulatory subject supports the diagnosis of Diabetes Mellitus. ADA recommended reference range Performed By: #### B AWA FUNEZOB ####[place] [id number] [facility] Potassium [Moles/Vol] 5.0 mmol/L Significan t change down 3.5-5.1 [facility] Comment on above: Performed By: #### B AWA FUNEZOB ####[place] [address] [place] [address] [facility] Sodium [Moles/Vol] 135 mmol/L Low 136-146 [facility] Comment on above: Performed By: #### B AWA FUNEZOB ####[place] [address] [place] [id number] [facility] Urea nitrogen [Mass/Vol] 22 mg/dL Normal 9-23 [facility] Comment on above: Performed By: #### B AWA FUNEZOB ####[address] [address] [facility] Basophils Auto (Bld) [#/Vol] Ordered By: Nirav Huerta on 01-08-2022 Basophils (Bld) [#/Vol] 0.1 10*3/uL 0.0-0.2 [facility] Basophils/100 WBC Auto (Bld) Ordered By: Nirav Huerta on 01-08-2022 Basophils/100 WBC (Bld) 0.8 % . F [facility] Beta Hydroxybuterateon 01-08 Beta Hydroxybuterate 8.19 mmol/L High 0.05-0.27 [facility] Comment on above: Result Comment: PERF ORMED BY:[address] [place], [place] [phone] MEDICAL DIRECTORELI FINK M.D. Performed By: #### B MP, BHOB ####[address] [address] [facility] Beta Hydroxybuterate 0.89 mmol/L High 0.05-0.27 [facility] Comment on above: Result Comment: PERF ORMED BY:[place] [address] [address] [place], [place] [phone] MEDICAL DIRECTORELI FINK M.D. Performed By: #### L ACTIC, BHOB, CBC, CMP, LIPASE, PHOS ####[address] [address] [facility] Beta-hydroxybutyric acid fatoumata surementOrdered By: Jayashree Watts on 01-08-2022 Beta hydroxybutyrate [Mass/Vol] 8.19 mmol/L 0.05-0.27 [facility] Bilirubin Test strip Ql (U)O rdered By: Nirav Huerta on 01-08-2022 Bilirubin Ql (U) Negative Negative [facility] Blood Cultureon 01-08-2022 Bacteria identified Cx Nom (Bld) NO GROWTH 5 DAYS PERFORMED BY: [facility] [address] [place] [address] PATHOLOGIST SHEET [employer] L[employer] OUT WORKER ELI FINK M.D. [facility] Comment on above: Performed By: #### C UBLD ####[place] [address] [place] [phone] [facility] Bacteria identified Cx Nom (Bld) NO GROWTH 5 DAYS PERFORMED BY: [facility] [address] [id number] PATHOLOGIST SHEET METAL LAY OUT WORKER ELI FINK M.D. [facility] Comment on above: Performed By: #### C UBLD ####[place] [address] [place] [id number] [facility] Blood hemoglobin measurement (mass/volume)Ordered By: Nirav Huerta on 01-08-2022 Hemoglobin (Bld) [Mass/Vol] 9.0 g/dL 11.8-15.4 [facility] Blood leukocytes automated c ount (number/volume)Ordered By: Nirav Huerta on 01-08-2022 WBC (Bld) [#/Vol] 13.6 10*3/uL 4.5-11.0 [facility] Body fluid albumin measureme nt (mass/volume)Ordered By: Nirav Huerta on 01-08-2022 Albumin (Body fld) [Mass/Vol] 2.9 g/dL 3.2-5.5 [facility] COVID-19 Antigenon 2 COVID-19 Antigen Normal [facility] Comment on above: Performed By: #### C OVID-19 EULOGIO, SOFIANEG ####[place] [address] [place] [id number] [facility] COVID-19 FRMCon 01-08-2022 SARS-CoV-2 (COVID-19) RNA LOUISE+probe Ql (Unsp spec) Negative Normal Negative [facility] Comment on above: Order Comment: Healt hcare Worker?: N Result Comment: Test ing for SARS-CoV-2 by RT-PCR This test was developed and its performance characteristics determined by [employer]) and validated at the [facility]. This test has not been FDA cleared or approved. This test has been authorized by FDA under an Emergency Use Authorization (EUA). This test has been validated in accordance with the FDA's Guidance Document (Policy for Diagnostics Testing in Laboratories Certified to Perform High Complexity Testing under CLIA prior to Emergency Use Authorization for Coronavirus Disease-2019 during the Public Health Emergency) issued on July 17, 2019. This test is only authorized for the duration of time the declaration that circumstances exist justifying the authorization of the emergency use of in vitro diagnostic tests for detection of SARS-CoV-2 virus and/or diagnosis of COVID-19 infection under section 564(b)(1) of the Act, 21 U.S.C. 360bbb-3(b)(1), unless the authorization is terminated or revoked sooner.PERFORMED BY:[facility] [place], [place] [phone] MEDICAL DIRECTORELI FINK M.D. Performed By: #### C OVID 19 [facility] ####[facility] [address] [place] [address] [facility] COVID-19 Positive/NegativeOr dered By: Raul Gong on 01-08-2022 SARS-CoV-2 (COVID-19) N gene LOUISE+probe Ql (Resp) Negative Negative [facility] Comment on above: Testing for SARS-CoV -2 by RT-PCR This test was developed and its performance characteristics determined by [employer] ([employer]) and validated at the [facility]. This test has not been FDA cleared or approved. This test has been authorized by FDA under an Emergency Use Authorization (EUA). This test has been validated in accordance with the FDA's Guidance Document (Policy for Diagnostics Testing in Laboratories Certified to Perform High Complexity Testing under CLIA prior to Emergency Use Authorization for Coronavirus Disease-2019 during the Public Health Emergency) issued on July 17, 2019. This test is only authorized for the duration of time the declaration that circumstances exist justifying the authorization of the emergency use of in vitro diagnostic tests for detection of SARS-CoV-2 virus and/or diagnosis of COVID-19 infection under section 564(b)(1) of the Act, 21 U.S.C. 360bbb-3(b)(1), unless the authorization is terminated or revoked sooner. COVID-19 SOFIAOrdered By: Elvis Huerta on 01-08-2022 SARS-CoV+SARS-CoV-2 (COVID-19) Ag IA.rapid Ql (Resp) Negative Negative [facility] Comment on above: This is a duplicate Eulogio SARS Antigen (NAPOLEON) result to be used for statistical tracking purpose only. CT abdomen pelvis w conon CT abdomen pelvis w con Normal F [facility] CT head/brain wo conon 01-08 CT head/brain wo con Normal [facility] Capillary blood glucose amaya urement by glucometer (mass/volume)Ordered By: Jayashree Watts on 01-08-2022 Glucose [Mass/Vol] 224 mg/dL Normal [facility] Comment on above: Random Glucose Refer ence Range is dependent on time and content of last meal. Glucose of more than 200 mg/dL in a nonstressed, ambulatory subject supports the diagnosis of Diabetes Mellitus. Result Comment: [place] om Glucose Reference Range is dependent on time and content of last meal. Glucose of more than 200 mg/dL in a nonstressed, ambulatory subject supports the diagnosis of Diabetes Mellitus.PERFORMED BY:[facility] [place], [place] [phone] MEDICAL DIRECTORELI FINK M.D. Performed By: #### G PILY ####Point of Care testing, Color Auto (U)Ordered By: Elvis Huerta on 01-08-2022 Color (U) Yellow Yellow [facility] Complete Blood Count Auto Di ffon 01-08-2022 Basophils (Bld) [#/Vol] 0.1 10*3/uL Normal 0.0-0.2 [facility] Comment on above: Result Comment: PERF ORMED BY:[facility] [place], [place] [phone] MEDICAL DIRECTOREIL FINK M.D. Performed By: #### L ACTIC, BHOB, CBC, CMP, LIPASE, PHOS ####[facility] [place] [address] [facility] Basophils/100 WBC (Bld) 0.8 % Normal . F [facility] Comment on above: Performed By: #### L ACTIC, BHOB, CBC, CMP, LIPASE, PHOS ####[address] Eosinophils (Bld) [#/Vol] 0.0 10*3/uL Normal 0.0-0.45 [facility] Comment on above: Performed By: #### L ACTIC, BHOB, CBC, CMP, LIPASE, PHOS ####[address] Eosinophils/100 WBC (Bld) 0.2 % Normal . [facility] Comment on above: Performed By: #### L ACTIC, BHOB, CBC, CMP, LIPASE, PHOS ####[address] Erythrocyte distribution width (RBC) [Ratio] 17.4 % High 11.9-15.3 [facility] Comment on above: Performed By: #### L ACTIC, BHOB, CBC, CMP, LIPASE, PHOS ####[address] Hematocrit (Bld) [Volume fraction] 28.3 % Low 34.0-46.4 [facility] Comment on above: Performed By: #### L ACTIC, BHOB, CBC, CMP, LIPASE, PHOS ####[address] Hemoglobin (Bld) [Mass/Vol] 9.0 g/dL Low 11.8-15.4 [facility] Comment on above: Performed By: #### L ACTIC, BHOB, CBC, CMP, LIPASE, PHOS ####[address] Lymphocytes (Bld) [#/Vol] 1.2 10*3/uL Normal 1.00-4.8 [facility] Comment on above: Performed By: #### L ACTIC, BHOB, CBC, CMP, LIPASE, PHOS ####[address] Lymphocytes/100 WBC (Bld) 8.6 % Normal . [facility] Comment on above: Performed By: #### L ACTIC, BHOB, CBC, CMP, LIPASE, PHOS ####[address] MCH (RBC) [Entitic mass] 28.2 pg Normal 24.7-34.3 [facility] Comment on above: Performed By: #### L ACTIC, BHOB, CBC, CMP, LIPASE, PHOS ####[address] MCV (RBC) [Entitic vol] 88.5 fL Normal 80-100 [facility] Comment on above: Performed By: #### L ACTIC, BHOB, CBC, CMP, LIPASE, PHOS ####[address] Mean Corpuscular HGB Conc 31.8 g/dL Low 32.0-35.0 [facility] Comment on above: Performed By: #### L ACTIC, BHOB, CBC, CMP, LIPASE, PHOS ####[address] Monocytes (Bld) [#/Vol] 1.0 10*3/uL High 0.0-0.8 [facility] Comment on above: Performed By: #### L ACTIC, BHOB, CBC, CMP, LIPASE, PHOS ####[address] Monocytes/100 WBC (Bld) 7.2 % Normal . [facility] Comment on above: Performed By: #### L ACTIC, BHOB, CBC, CMP, LIPASE, PHOS ####[address] Neutrophils (Bld) [#/Vol] 11.3 10*3/uL High 1.8-7.7 [facility] Comment on above: Performed By: #### L ACTIC, BHOB, CBC, CMP, LIPASE, PHOS ####[address] Neutrophils/100 WBC (Bld) 83.2 % Normal . [facility] Comment on above: Performed By: #### L ACTIC, BHOB, CBC, CMP, LIPASE, PHOS ####[address] Nucleated RBC/100 WBC (Bld) [Ratio] 0.0 % Normal 0-0.5 [facility] Comment on above: Performed By: #### L ACTIC, BHOB, CBC, CMP, LIPASE, PHOS ####[address] Platelet mean volume (Bld) [Entitic vol] 7.0 fL Normal 6.3-10.7 [facility] Comment on above: Performed By: #### L ACTIC, BHOB, CBC, CMP, LIPASE, PHOS ####[address] Platelets (Bld) [#/Vol] 751 10*3/uL High 150-450 [facility] Comment on above: Performed By: #### L ACTIC, BHOB, CBC, CMP, LIPASE, PHOS ####[address] RBC (Bld) [#/Vol] 3.19 10*6/uL Low 3.60-5.00 [facility] Comment on above: Performed By: #### L ACTIC, BHOB, CBC, CMP, LIPASE, PHOS ####[address] WBC (Bld) [#/Vol] 13.6 10*3/uL High 4.5-11.0 [facility] Comment on above: Performed By: #### L ACTIC, BHOB, CBC, CMP, LIPASE, PHOS ####[address] Comprehensive Metabolic Pane mary beth 01-08-2022 Albumin [Mass/Vol] 2.9 g/dL Low 3.2-5.5 [facility] Comment on above: Performed By: #### L ACTIC, BHOB, CBC, CMP, LIPASE, PHOS ####[address] Albumin/Globulin [Mass ratio] 0.8 {ratio} Normal [facility] Comment on above: Performed By: #### L ACTIC, BHOB, CBC, CMP, LIPASE, PHOS ####[address] ALP [Catalytic activity/Vol] 92 U/L Normal 32-92 [facility] Comment on above: Performed By: #### L ACTIC, BHOB, CBC, CMP, LIPASE, PHOS ####[address] ALT [Catalytic activity/Vol] 19 U/L Normal 10-60 [facility] Comment on above: Performed By: #### L ACTIC, BHOB, CBC, CMP, LIPASE, PHOS ####[address] Anion gap [Moles/Vol] 15.7 mmol/L High 6.0-15.0 [facility] Comment on above: Performed By: #### L ACTIC, BHOB, CBC, CMP, LIPASE, PHOS ####[address] AST [Catalytic activity/Vol] 17 U/L Normal 10-42 [facility] Comment on above: Performed By: #### L ACTIC, BHOB, CBC, CMP, LIPASE, PHOS ####[address] Bilirubin [Mass/Vol] 0.6 mg/dL Normal 0.3-1.2 [facility] Comment on above: Performed By: #### L ACTIC, BHOB, CBC, CMP, LIPASE, PHOS ####[address] Calcium [Mass/Vol] 9.2 mg/dL Normal 8.2-10.2 [facility] Comment on above: Performed By: #### L ACTIC, BHOB, CBC, CMP, LIPASE, PHOS ####[address] Chloride [Moles/Vol] 98 mmol/L Normal 95-114 [facility] Comment on above: Performed By: #### L ACTIC, BHOB, CBC, CMP, LIPASE, PHOS ####[address] CO2 [Moles/Vol] 21.8 mmol/L Low 22.0-30.0 [facility] Comment on above: Performed By: #### L ACTIC, BHOB, CBC, CMP, LIPASE, PHOS ####[address] Creatinine [Mass/Vol] 0.82 mg/dL Normal 0.44-1.03 [facility] Comment on above: Performed By: #### L ACTIC, BHOB, CBC, CMP, LIPASE, PHOS ####[address] Creatinine Clr Calc Pharmacy 66.61 [facility] Comment on above: Performed By: #### L ACTIC, BHOB, CBC, CMP, LIPASE, PHOS ####[address] Estimated GFR ( Martha > 60 [facility] Comment on above: Result Comment: GFR estimated reference range: According to KDOQI guidelines, <60 ml/min/1.73m2 is sufficient to diagnose a patient with chronic kidney disease. Performed By: #### L ACTIC, BHOB, CBC, CMP, LIPASE, PHOS ####[address] Estimated GFR (Non- Am > 60 [facility] Comment on above: Performed By: #### L ACTIC, BHOB, CBC, CMP, LIPASE, PHOS ####[address] Globulin (S) [Mass/Vol] 3.6 g/dL Normal [facility] Comment on above: Performed By: #### L ACTIC, BHOB, CBC, CMP, LIPASE, PHOS ####[address] Glucose [Mass/Vol] 221 mg/dL High 70-100 [facility] Comment on above: Result Comment: [facility] Glucose Reference Range is dependent on time and content of last meal. Glucose of more than 200 mg/dL in a nonstressed, ambulatory subject supports the diagnosis of Diabetes Mellitus. ADA recommended reference range Performed By: #### L ACTIC, BHOB, CBC, CMP, LIPASE, PHOS ####[place] [id number] [facility] Potassium [Moles/Vol] 3.5 mmol/L Normal 3.5-5.1 [facility] Comment on above: Performed By: #### L ACTIC, BHOB, CBC, CMP, LIPASE, PHOS ####[place] [id number] [facility] Protein [Mass/Vol] 6.5 g/dL Normal 6.1-7.9 [facility] Comment on above: Performed By: #### L ACTIC, BHOB, CBC, CMP, LIPASE, PHOS ####[place] [id number] [facility] Sodium [Moles/Vol] 132 mmol/L Low 136-146 [facility] Comment on above: Performed By: #### L ACTIC, BHOB, CBC, CMP, LIPASE, PHOS ####[place] [id number] [facility] Urea nitrogen [Mass/Vol] 19 mg/dL Normal 9-23 [facility] Comment on above: Performed By: #### L ACTIC, BHOB, CBC, CMP, LIPASE, PHOS ####[address] Creatinine and Glomerular fi ltration rate.predicted panel (S/P/Bld)Ordered By: Jayashree Watts on 01-08-2022 Creatinine [Mass/Vol] 0.90 mg/dL 0.44-1.03 [facility] Comment on above: Delta: 1.41 on 01/08 Dipstick and Microscopicon 0 01-08-2022 Appearance (U) Turbid Critically abnormal Clear [facility] Comment on above: Order Comment: Name Collection Type:: Other Performed By: #### C UU, ADDONUAPLUS ####[place] [address] [place] [address] [facility] Bacteria,Urine None Seen Normal None Seen [facility] Comment on above: Order Comment: Name Collection Type:: Other Performed By: #### C UU, ADDONUAPLUS ####[address] [address] [place] Bilirubin,Urine Negative Normal Negative [facility] Comment on above: Order Comment: Name Collection Type:: Other Performed By: #### C UU, ADDONUAPLUS ####[address] [address] [facility] Color (U) Yellow Normal Yellow [facility] Comment on above: Order Comment: Name Collection Type:: Other Performed By: #### C UU, ADDONUAPLUS ####[address] [address] [facility] Glucose Ql (U) Normal Normal Normal [facility] Comment on above: Order Comment: Name Collection Type:: Other Performed By: #### C UU, ADDONUAPLUS ####[address] [address] [facility] Hyaline Casts,Urine 0-8 Normal 0-8 [facility] Comment on above: Order Comment: Name Collection Type:: Other Result Comment: PERF ORMED BY:[address] [place], [place] [id number] MEDICAL DIRECTORELI FINK M.D. Performed By: #### C UU, ADDONUAPLUS ####[place] [address] [place] [address] [facility] Ketones Ql (U) Trace High Negative [facility] Comment on above: Order Comment: Name Collection Type:: Other Performed By: #### C UU, ADDONUAPLUS ####[place] [address] [place] [address] [facility] Leukocyte esterase Test strip Ql (U) 4+ High Negative [facility] Comment on above: Order Comment: Name Collection Type:: Other Performed By: #### C UU, ADDONUAPLUS ####[address] [address] [facility] Nitrite,Urine Negative Normal Negative [facility] Comment on above: Order Comment: Name Collection Type:: Other Performed By: #### C UU, ADDONUAPLUS ####[address] [address] [facility] Occult Blood,Urine Trace High Negative [facility] Comment on above: Order Comment: Name Collection Type:: Other Result Comment: PERF ORMED BY:[address] [place], [place] [phone] MEDICAL DIRECTORELI FINK M.D. Performed By: #### C UU, ADDONUAPLUS ####[address] [address] [facility] pH (U) 7.5 [pH] Normal 5.0-9.0 [facility] Comment on above: Order Comment: Name Collection Type:: Other Performed By: #### C UU, ADDONUAPLUS ####[address] [address] [facility] Protein (U) [Mass/Vol] 30 mg/dL High Negative [facility] Comment on above: Order Comment: Name Collection Type:: Other Performed By: #### C UU, ADDONUAPLUS ####[address] [address] [place] RBC,Urine 3-4 Normal 0-4 [facility] Comment on above: Order Comment: Name Collection Type:: Other Performed By: #### C UU, ADDONUAPLUS ####[address] [address] [facility] Specificy [place],Urine 1.011 Normal 1.001-1.030 [facility] Comment on above: Order Comment: Name Collection Type:: Other Performed By: #### C UU, ADDONUAPLUS ####[place] [address] Squamous Epithelial Cell,Urine 0-1 Normal 0-2 [facility] Comment on above: Order Comment: Name Collection Type:: Other Performed By: #### C UU, ADDONUAPLUS ####[address] Urobilinogen,Urine Normal Normal Normal [facility] Comment on above: Order Comment: Name Collection Type:: Other Performed By: #### C UU, ADDONUAPLUS ####[address] WBC,Urine 10-19 High 0-4 [facility] Comment on above: Order Comment: Name Collection Type:: Other Performed By: #### C UU, ADDONUAPLUS ####[address] [address] ECG 12 lead ECGon 01-08-2022 ECG 12 lead ECG Normal [facility] Eosinophils Auto (Bld) [#/Vo l]Ordered By: Nirav Huerta on 01-08-2022 Eosinophils (Bld) [#/Vol] 0.0 10*3/uL 0.0-0.45 [facility] Eosinophils/100 WBC Auto (Bl d)Ordered By: Nirav Huerta on 01-08-2022 Eosinophils/100 WBC (Bld) 0.2 % . [facility] Erythrocyte distribution wid th Auto (RBC) [Ratio]Ordered By: Nirav Huerta on 01-08-2022 Erythrocyte distribution width (RBC) [Ratio] 17.4 % 11.9-15.3 [facility] Estimated glomerular filtrat ion rate (GFR) non- AmericanOrdered By: Jayashree Watts on 01-08-2022 GFR/1.73 sq M.predicted among non-blacks MDRD (S/P/Bld) [Vol rate/Area] > 60 mL/Min [facility] Globulin Calc (S) [Mass/Vol] Ordered By: Nirav Huerta on 01-08-2022 Globulin (S) [Mass/Vol] 3.6 g/dL F [facility] Glucose Poct Glucometerson 0 01-08-2022 Glucose [Mass/Vol] 363 mg/dL Normal [facility] Comment on above: Result Comment: [place] Glucose Reference Range is dependent on time and content of last meal. Glucose of more than 200 mg/dL in a nonstressed, ambulatory subject supports the diagnosis of Diabetes Mellitus.PERFORMED BY:[place] [address] [place] [place], [place] [phone] MEDICAL DIRECTORELI FINK M.D. Performed By: #### G LULS ####Point of Care testing, Commemt1 [facility] Comment on above: Result Comment: Glu2 : WILL NOTIFY DR/RN Performed By: #### G LULS ####Point of Care testing, Commemt2 Cleaned Meter [facility] Comment on above: Result Comment: PERF ORMED BY:[place] [address] [place] [place], [place] [phone] MEDICAL DIRECTORELI FINK M.D. Performed By: #### G LULS ####Point of Care testing, Glucose [Mass/Vol] 336 mg/dL Normal [facility] Comment on above: Result Comment: [facility] Glucose Reference Range is dependent on time and content of last meal. Glucose of more than 200 mg/dL in a nonstressed, ambulatory subject supports the diagnosis of Diabetes Mellitus. Performed By: #### G LULS ####Point of Care testing, HCG ( test) IAjulio d Ql (U)Ordered By: Jayashree Watts on 01-08-2022 HCG ( test) Ql (U) Negative [facility] HCG,Qualitative Serumon 12-16 HCG,Qualitative Serum Negative Normal [facility] Comment on above: Order Comment: Comme nt add Result Comment: PERF ORMED BY:[place] [address] [place] [place], [place] [phone] MEDICAL DIRECTORELI FINK M.D. Performed By: #### H CGQUAL, MG, BMP ####[facility] [place] [address] [place] Hematocrit Auto (Bld) [Volum e fraction]Ordered By: Nirav Huerta on 01-08-2022 Hematocrit (Bld) [Volume fraction] 28.3 % 34.0-46.4 [facility] ISTAT Glucose [place] 01-09-20 Glucose [Mass/Vol] 435 mg/dL High 70-105 [facility] Comment on above: Result Comment: PERF ORMED BY:[address] [place], [place] [phone] MEDICAL DIRECTORELI FINK M.D. Performed By: #### I SGLU ####Point of Care testing, Glucose [Mass/Vol] 527 mg/dL Off scale high 70-105 [facility] Comment on above: Result Comment: PERF ORMED BY:[address] [place], [place] [phone] MEDICAL DIRECTORELI FINK M.D. Performed By: #### I SGLU ####Point of Care testing, Ketones Auto test strip (U) [Mass/Vol]Ordered By: Nirav Huerta on 01-08-2022 Ketones (U) [Mass/Vol] Trace Negative [facility] Laboratory - Chemistry and C hemistry - challengeOrdered By: Jayashree Watts on 01-08-2022 Magnesium [Mass/Vol] 2.1 mg/dL 1.6-2.6 [facility] CO2 [Moles/Vol] 8.4 mmol/L 24.0-29.0 [facility] HCO3 (Bld) [Moles/Vol] 7.6 mmol/L 23.0-29.0 [facility] Laboratory - Chemistry and C hemistry - challengeOrdered By: Nirav Huerta on 01-08-2022 Lipase [Catalytic activity/Vol] 20.0 U/L 22-51 [facility] Laboratory - Hematology and Cell countsOrdered By: Nirav Huerta on 01-08-2022 Nucleated RBC/100 WBC (Bld) [Ratio] 0.0 % 0-0.5 [facility] Laboratory - UrinalysisOrder ed By: Nirav Huerta on 01-08-2022 Hyaline casts LM Ql (Urine sed) 0-8 [LPF] 0-8 [facility] Lactic Acidon 01-08-2022 Lactate [Moles/Vol] 0.9 mmol/L Normal 0.5-2.2 [facility] Comment on above: Result Comment: PERF ORMED BY:[address] [address] [place], [place] [phone] MEDICAL DIRECTORELI FINK M.D. Performed By: #### L ACTIC ####[address] [place] [address] [facility] Lactate [Moles/Vol] 3.3 mmol/L Off scale high 0.5-2.2 [facility] Comment on above: Result Comment: Resu lts called at 0501 on 01/08/22PERFORMED BY:[address] [address] [place], [place] [phone] MEDICAL DIRECTORELI FINK M.D. Performed By: #### L ACTIC, BHOB, CBC, CMP, LIPASE, PHOS ####[address] [address] [facility] Lipaseon 01-08-2022 Lipase [Catalytic activity/Vol] 20.0 U/L Low 22-51 [facility] Comment on above: Performed By: #### L ACTIC, BHOB, CBC, CMP, LIPASE, PHOS ####[address] [address] [facility] Lymphocytes Auto (Bld) [#/Vo l]Ordered By: Nirav Huerta on 01-08-2022 Lymphocytes (Bld) [#/Vol] 1.2 10*3/uL 1.00-4.8 [facility] Lymphocytes/100 WBC Auto (Bl d)Ordered By: Nirav Huerta on 01-08-2022 Lymphocytes/100 WBC (Bld) 8.6 % . [facility] MCH Auto (RBC) [Entitic mass ]Ordered By: Nirav Huerta on 01-08-2022 MCH (RBC) [Entitic mass] 28.2 pg 24.7-34.3 [facility] MCHC Auto (RBC) [Mass/Vol]Or dered By: Nirav Huerta on 01-08-2022 MCHC (RBC) [Mass/Vol] 31.8 g/dL 32.0-35.0 [facility] MCV Auto (RBC) [Entitic vol] Ordered By: Nirav Huerta on 01-08-2022 MCV (RBC) [Entitic vol] 88.5 fL 80-100 F [facility] Magnesiumon 01-08-2022 Magnesium [Mass/Vol] 2.1 mg/dL Normal 1.6-2.6 [facility] Comment on above: Order Comment: Comme nt add Performed By: #### H CGQUAL, MG, BMP ####[facility] [address] Monocytes Auto (Bld) [#/Vol] Ordered By: Nirav Huetra on 01-08-2022 Monocytes (Bld) [#/Vol] 1.0 10*3/uL 0.0-0.8 [facility] Monocytes/100 WBC Auto (Bld) Ordered By: Nirav Huerta on 01-08-2022 Monocytes/100 WBC (Bld) 7.2 % . [facility] Neutrophils Auto (Bld) [#/Vo l]Ordered By: Nirav Huerta on 01-08-2022 Neutrophils (Bld) [#/Vol] 11.3 10*3/uL 1.8-7.7 [facility] Neutrophils/100 WBC Auto (Bl d)Ordered By: Nirav Huerta on 01-08-2022 Neutrophils/100 WBC (Bld) 83.2 % . [facility] Nitrite Test strip Ql (U)Ord ered By: Nirav Huerta on 01-08-2022 Nitrite Ql (U) Negative Negative [facility] No Panel InformationOrdered By: Jayashree Watts on 01-08-2022 Estimated GFR () > 60 mL/Min [facility] Comment on above: GFR estimated refere nce range: According to KDOQI guidelines, <60 ml/min/1.73m2 is sufficient to diagnose a patient with chronic kidney disease. Pharmacy Creatinine Clearance (Chem 62.10 [facility] Blood Gas Critical Value See comment [facility] Comment on above: Critical Value lamas d on: 01/08/2022 at 15:42 Blood Gas Sample Site Venous Fir [facility] FiO2 Na % [facility] Venous Blood Base Excess -20.2 mmol/L -3.0-3.0 [facility] Venous Blood Oxygen Content 3.1 mmol/L 6.6-9.7 [facility] Venous Blood Oxygen Saturation 51.7 % 73.0-76.0 [facility] Venous Blood Partial Pressure CO2 24.5 mm[Hg] 38.0-50.0 [facility] Venous Blood Partial Pressure O2 34.6 mm[Hg] 35.0-45.0 [facility] Venous Blood pH 7.11 7.32-7.43 [facility] No Panel InformationOrdered By: Nirav Huerta on 01-08-2022 Bedside Glucose #2 Comment Cleaned meter [facility] Bedside Glucose Comment See comment [facility] Comment on above: Glu2: WILL NOTIFY DR /ALISTAIR SARS Antigen (LFIA) [facility] Phosphate [Mass/volume] in S cecelia or PlasmaOrdered By: Nirav Huerta on 01-08-2022 Phosphate [Mass/Vol] 2.7 mg/dL 2.5-4.6 [facility] Phosphoruson 01-08-2022 Phosphate [Mass/Vol] 2.7 mg/dL Normal 2.5-4.6 [facility] Comment on above: Performed By: #### L ACTIC, BHOB, CBC, CMP, LIPASE, PHOS ####[facility] Kps[address] Platelet mean volume Auto (B ld) [Entitic vol]Ordered By: Nirav Huerta on 01-08-2022 Platelet mean volume (Bld) [Entitic vol] 7.0 fL 6.3-10.7 [facility] Platelets Auto (Bld) [#/Vol] Ordered By: Nirav Huerta on 01-08-2022 Platelets (Bld) [#/Vol] 751 10*3/uL 150-450 [facility] Protein Auto test strip (U) [Mass/Vol]Ordered By: Nirav Huerta on 01-08-2022 Protein (U) [Mass/Vol] 30 mg/dL [facility] Protein [Mass/volume] in Ser um or PlasmaOrdered By: Nirav Huerta on 01-08-2022 Protein [Mass/Vol] 6.5 g/dL 6.1-7.9 [facility] RBC Auto (Bld) [#/Vol]Ordere d By: Nirav Huerta on 01-08-2022 RBC (Bld) [#/Vol] 3.19 10*6/uL 3.60-5.00 [facility] Serum or plasma alanine kiran otransferase measurement without P-5'-P (enzymatic activiOrdered By: Nirav Huerta on 01-08-2022 ALT No additional P-5'-P [Catalytic activity/Vol] 19 U/L 10-60 [facility] Serum or plasma albumin/glob ulin mass ratioOrdered By: Nirav Huerta on 01-08-2022 Albumin/Globulin [Mass ratio] 0.8 {ratio} [facility] Serum or plasma alkaline supriya sphatase measurement (enzymatic activity/volume)Ordered By: Nirav Huerta on 01-08-2022 ALP [Catalytic activity/Vol] 92 U/L 32-92 [facility] Serum or plasma anion gap de terminationOrdered By: Jayashree Watts on 01-08-2022 Anion gap [Moles/Vol] 12.3 mmol/L 6.0-15.0 [facility] Serum or plasma aspartate am inotransferase measurement (enzymatic activity/volume)Ordered By: Nirav Huerta on 01-08-2022 AST [Catalytic activity/Vol] 17 U/L 10-42 [facility] Serum or plasma calcium amaya urement (mass/volume)Ordered By: Jayashree Watts on 01-08-2022 Calcium [Mass/Vol] 8.7 mg/dL 8.2-10.2 [facility] Serum or plasma chloride fatoumata surement (moles/volume)Ordered By: Jayashree Watts on 01-08-2022 Chloride [Moles/Vol] 113 mmol/L 95-114 [facility] Serum or plasma glucose amaya urement (mass/volume)Ordered By: Jayashree Watts on 01-08-2022 Glucose [Mass/Vol] 267 mg/dL 70-100 [facility] Comment on above: Delta: 823 on ADA recommended reference range Random Glucose Reference Range is dependent on time and content of last meal. Glucose of more than 200 mg/dL in a nonstressed, ambulatory subject supports the diagnosis of Diabetes Mellitus. Serum or plasma potassium me asurement (moles/volume)Ordered By: Jayashree Watts on 01-08-2022 Potassium [Moles/Vol] 4.1 mmol/L 3.5-5.1 [facility] Serum or plasma sodium measu rement (moles/volume)Ordered By: Jayashree Watts on 01-08-2022 Sodium [Moles/Vol] 140 mmol/L 136-146 [facility] Comment on above: Delta: 132 on Serum or plasma total biliru bin measurement (mass/volume)Ordered By: Nirav Huerta on 01-08-2022 Bilirubin [Mass/Vol] 0.6 mg/dL 0.3-1.2 [facility] Serum or plasma total carbon dioxide measurement (moles/volume)Ordered By: Jayashree Watts on 01-08-2022 CO2 [Moles/Vol] 18.8 mmol/L 22.0-30.0 [facility] Serum or plasma urea nitroge n measurement (mass/volume)Ordered By: Jayashree Watts on 01-08-2022 Urea nitrogen [Mass/Vol] 18 mg/dL 01-06 [facility] Eulogio Ag Negativeon 01-09-20 Eulogio Ag Negative Negative Normal Negative [facility] Comment on above: Result Comment: This is a duplicate Eulogio SARS Antigen (NAPOELON) result to be used for statistical tracking purpose only.PERFORMED BY:[facility] [place], [place] [phone] MEDICAL DIRECTORELI FINK M.D. Performed By: #### C OVID-19 EULOGIO, SOFIANEG ####[address] [place] [address] [facility] Specific gravity Auto test s trip (U) [Rel density]Ordered By: Nirav Huerta on 01-08-2022 Specific gravity (U) [Rel density] 1.011 1.001-1.030 [facility] Squamous epithelial cells de tection in urine sediment by light microscopyOrdered By: Nirav Huerta on 01-08-2022 Epithelial cells.squamous LM Ql (Urine sed) 0-1 [HPF] 0-2 [facility] Urine Cultureon 01-08-2022 Bacteria identified Cx Nom (U) Normal [facility] Comment on above: Performed By: #### C UU, ADDONUAPLUS ####[place] [address] [place] [id number] [facility] Urine bacteria detection by automated methodOrdered By: Nirav Huerta on 01-08-2022 Bacteria Auto Ql (U) None seen None Seen [facility] Urine clarity by refractomet ry automatedOrdered By: Nirav Huerta on 01-08-2022 Clarity Refractometry automated (U) Turbid Clear [facility] Urine glucose measurement by automated test strip (mass/volume)Ordered By: Nirav Huerta on 01-08-2022 Glucose Auto test strip (U) [Mass/Vol] Normal mg/dL Normal [facility] Urine hemoglobin detection b y automated test stripOrdered By: Nirav Huerta on 01-08-2022 Hemoglobin Auto test strip Ql (U) Trace Negative [facility] Urine lactic acid measuremen tOrdered By: Nirav Huerta on 01-08-2022 Lactate (U) [Moles/Vol] 0.9 mmol/L 0.5-2.2 F [facility] Urine leukocyte esterase det ection by automated test stripOrdered By: Nirav Huerta on 01-08-2022 Leukocyte esterase Auto test strip Ql (U) 4+ Negative [facility] Urobilinogen Auto test strip (U) [Mass/Vol]Ordered By: Nirav Huerta on 01-08-2022 Urobilinogen (U) [Mass/Vol] Normal mg/dL Normal [facility] Venous Blood Gason 2 CO2 [Moles/Vol] 8.4 mmol/L Low 24.0-29.0 [facility] Comment on above: Performed By: #### V BG ####Point of Care testing, HCO3 (Bld) [Moles/Vol] 7.6 mmol/L Low 23.0-29.0 [facility] Comment on above: Performed By: #### V BG ####Point of Care testing, Respiratory Critical Normal [facility] Comment on above: Result Comment: Crit ical Value called on: 01/08/2022 at 15:42PERFORMED BY:[place] [place], [place] [phone] MEDICAL DIRECTORELI FINK M.D. Performed By: #### V BG ####Point of Care testing, VBG Base Excess -20.2 mmol/L Low -3.0-3.0 [facility] Comment on above: Performed By: #### V BG ####Point of Care testing, VBG Draw Site Venous Normal [facility] Comment on above: Performed By: #### V BG ####Point of Care testing, VBG Frac Inspired O2 Normal [facility] Comment on above: Performed By: #### V BG ####Point of Care testing, VBG O2 Content 3.1 mmol/L Low 6.6-9.7 [facility] Comment on above: Performed By: #### V BG ####Point of Care testing, VBG Oxygen Saturation 51.7 % Off scale low 73.0-76.0 [facility] Comment on above: Performed By: #### V BG ####Point of Care testing, VBG PCO2 24.5 mm[Hg] Low 38.0-50.0 [facility] Comment on above: Performed By: #### V BG ####Point of Care testing, VBG PH Venous PH 7.11 Off scale low 7.32-7.43 [facility] Comment on above: Performed By: #### V BG ####Point of Care testing, VBG PO2 34.6 mm[Hg] Low 35.0-45.0 [facility] Comment on above: Performed By: #### V BG ####Point of Care testing, CO2 [Moles/Vol] 20.9 mmol/L Low 24.0-29.0 [facility] Comment on above: Performed By: #### V BG ####Point of Care testing, HCO3 (Bld) [Moles/Vol] 19.8 mmol/L Low 23.0-29.0 F [facility] Comment on above: Performed By: #### V BG ####Point of Care testing, Respiratory Critical Normal [facility] Comment on above: Result Comment: Crit ical Value called on: 01/08/2022 at 05:24PERFORMED BY:[facility] [place], [place] [phone] MEDICAL DIRECTORELI FINK M.D. Performed By: #### V BG ####Point of Care testing, VBG Base Excess -5.0 mmol/L Low -3.0-3.0 [facility] Comment on above: Performed By: #### V BG ####Point of Care testing, VBG Draw Site Venous Normal [facility] Comment on above: Performed By: #### V BG ####Point of Care testing, VBG Frac Inspired O2 21 % Normal [facility] Comment on above: Performed By: #### V BG ####Point of Care testing, VBG Oxygen Saturation 85.3 % Off scale high 73.0-76.0 [facility] Comment on above: Performed By: #### V BG ####Point of Care testing, VBG PCO2 35.8 mm[Hg] Low 38.0-50.0 [facility] Comment on above: Performed By: #### V BG ####Point of Care testing, VBG PH Venous PH 7.36 Normal 7.32-7.43 [facility] Comment on above: Performed By: #### V BG ####Point of Care testing, VBG PO2 52.1 mm[Hg] High 35.0-45.0 [facility] Comment on above: Performed By: #### V BG ####Point of Care testing, pH Auto test strip (U)Ordere d By: Nirav Huerta on 01-08-2022 pH (U) 7.5 [pH] 5.0-9.0 [facility] ACETONE SERUMon 01-07-2022 ACETONE SMALL Abnormal NEGATIVE [facility] Comment on above: Performed By: #### A CETON ####[facility] [address] [place] [address]Dr. Grace Best BLOOD GASES BTYon 01-07-2022 02 MODE ROOM AIR Normal [facility] Comment on above: Performed By: #### A BG ####[facility] [address] [place], [place] [address]Dr. Grace Best ALLENS TEST Positive [facility] Comment on above: Performed By: #### A BG ####[facility] [address] [place], [place] [address]Dr. Grace Best Base excess Calc (Bld) [Moles/Vol] -8.1000 mmol/L Critically low -2.0-2.0 [facility] Comment on above: Performed By: #### A BG ####[facility] [address] [place] [address]Dr[address] Grace Best BIPAP PRESSURE Normal [facility] Comment on above: Performed By: #### A BG ####[facility] [address] [place] [address]Dr. Grace Best CPAP Normal [facility] Comment on above: Performed By: #### A BG ####[facility] [address] [place] [address]Dr. Grace Best FIO2 Normal [facility] Comment on above: Performed By: #### A BG ####[facility] [address] [place], [place] [address]Dr. Grace Best HCO3 (Bld) [Moles/Vol] 18.5 mmol/L Critically low 22.0-26. 0 [facility] Comment on above: Performed By: #### A BG ####[facility] [address] [place] [address]Dr. Grace Best LPM Normal [facility] Comment on above: Performed By: #### A BG ####[facility] [address] [place] [address]Dr. Grace Best MINUTE VOLUME Normal [facility] Comment on above: Performed By: #### A BG ####[facility] [address] [place] [address]Dr. Grace Best Oxygen (Bld) [Partial pressure] 110.0 mm[Hg] Critically high 80.0-100.0 [facility] Comment on above: Performed By: #### A BG ####[facility] [address] [place] [address]Dr. Grace Best Oxygen saturation in Blood 97.0 % Normal 95.0-100.0 [facility] Comment on above: Performed By: #### A BG ####[facility] [address] [place] [address]Dr. Grace Best PCO2 32.0 mmHg Critically low 35.0-45.0 [facility] Comment on above: Performed By: #### A BG ####[facility] [address] [place] [address]Dr. Grace Best PEEP Normal [facility] Comment on above: Performed By: #### A BG ####[facility] [address] [place] [address]Dr. Grace Best pH (Bld) 7.347 [pH] Critically low 7.350-7.450 [facility] Comment on above: Performed By: #### A BG ####[facility] [address] [place] [address]Dr. Grace Best PIP Normal [facility] Comment on above: Performed By: #### A BG ####[facility] [address] [place] [id number]. Grace Best PS Normal [facility] Comment on above: Performed By: #### A BG ####[facility] [address] [place] [address]Dr. Grace Best PUNCTURE SITE LR Normal [facility] Comment on above: Performed By: #### A BG ####[facility] [address] [place] [address]Dr. Grace Best RATE [facility] Comment on above: Performed By: #### A BG ####[facility] [address] [place] [address]Dr. Grace Best VENT MODE [facility] Comment on above: Performed By: #### A BG ####[facility] [address] [place] [address]Dr. Grace Best [place] [facility] Comment on above: Performed By: #### A BG ####[facility] [address] [place] [address]Dr. Grace Best CARDIAC ALY 3-6on 2 CK [Catalytic activity/Vol] 21 U/L Critically low 26-192 [facility] Comment on above: Performed By: #### C MREP ####[facility] [address] [place] [address]Dr. Roxannega Best CK.MB [Mass/Vol] 1.01 ng/mL Normal <=3.60 [facility] Comment on above: Performed By: #### C MREP ####[facility] [address] [place] [address]Dr. Roxannega Best HSTROP 9.1 pg/mL Normal 4.0-51.3 [facility] Comment on above: Result Comment: CUT- OFF POINTS HAVE BEEN ESTABLISHED BASED ON THE FOURTH UNIVERSAL DEFINITIONS OF MYOCARDIALINFARCTION. THE UPPER REFERENCE LIMIT (URL) OF TROPONIN, DEFINED THE 99TH PERCENTILE OFcTnI DISTRIBUTION IN A REFERENCE POPULATION, HAS BEEN CONFIRMED THE DECISION THRESHOLDFOR [place] DIAGNOSIS. Performed By: #### C MREP ####[facility] [address] [place] [id number]. Grace Best CK [Catalytic activity/Vol] 16 U/L Critically low 26-192 [facility] Comment on above: Performed By: #### C MREP ####[facility] [address] [place] [id number]. Grace Best CK.MB [Mass/Vol] 0.87 ng/mL Normal <=3.60 [facility] Comment on above: Performed By: #### C MREP ####[facility] [address] [place] [address]Dr. Grace Best HSTROP 8.7 pg/mL Normal 4.0-51.3 [facility] Comment on above: Result Comment: CUT- OFF POINTS HAVE BEEN ESTABLISHED BASED ON THE FOURTH UNIVERSAL DEFINITIONS OF MYOCARDIALINFARCTION. THE UPPER REFERENCE LIMIT (URL) OF TROPONIN, DEFINED THE 99TH PERCENTILE OFcTnI DISTRIBUTION IN A REFERENCE POPULATION, HAS BEEN CONFIRMED THE DECISION THRESHOLDFOR [place] DIAGNOSIS. Performed By: #### C MREP ####[facility] [address] [place], [place] [address]Dr. Grace Best CARDIAC ALY ADMITon 022 CK [Catalytic activity/Vol] 30 U/L Normal 26-192 [facility] Comment on above: Performed By: #### C MADM ####[facility] [address] [place], [place] [id number]. Grace Best CK.MB [Mass/Vol] 0.83 ng/mL Normal <=3.60 [facility] Comment on above: Performed By: #### C MADM ####[facility] [address] [place], [place] [id number]. Grace Best HSTROP 8.2 pg/mL Normal 4.0-51.3 [facility] Comment on above: Result Comment: CUT- OFF POINTS HAVE BEEN ESTABLISHED BASED ON THE FOURTH UNIVERSAL DEFINITIONS OF MYOCARDIALINFARCTION. THE UPPER REFERENCE LIMIT (URL) OF TROPONIN, DEFINED THE 99TH PERCENTILE OFcTnI DISTRIBUTION IN A REFERENCE POPULATION, HAS BEEN CONFIRMED THE DECISION THRESHOLDFOR [place] DIAGNOSIS. Performed By: #### C MADM ####[facility] [address]la[address] [place] [address]Dr. Grace Best CORRY 19 ng/mL Normal 9-82 [facility] Comment on above: Performed By: #### C MADM ####[facility] Lmgsyetlat17[address] [place] [address]Dr. Grace Best CBC W MANUAL DIFFon 01-08-20 22 ATYPICAL LYMPH # Normal The [facility] Comment on above: Performed By: #### C BCMAN ####[facility] Baipfsfoas[address] [place] [address]Dr. Grace Best ATYPICAL LYMPH % Normal [facility] Comment on above: Performed By: #### C BCMAN ####[facility] Ftahs[address]es[address] [place], [place] [address]Dr. Grace Best BAND # 0.1 103/ul Normal 0.0-0.3 [facility] Comment on above: Performed By: #### C MYRTLE ####[facility] Ufcupwnjdn[address] [place], [place] [address]Dr. Grace Best BAND % 1 % Normal 0-5 [facility] Comment on above: Performed By: #### C MYRTLE ####[facility] Jcvgymatel[address] [place], [place] [address]Dr. Grace Best BASOM # 0.00 103/ul Normal 0.00-0.10 [facility] Comment on above: Performed By: #### C BCARIAN ####[facility] Xkrzxigyel[address] [place], [place] [address]Dr. Grace Best BASOM % 0.0 % Critically low 0.2-2.0 The [facility] Comment on above: Performed By: #### C BCARIAN ####[facility] Gceaqtwfxj[address] [place] [address]Dr. Grace Best BLAST # Normal [facility] Comment on above: Performed By: #### C BCMAN ####[facility] L[address]qllelled[address] [place] [address]Dr. Grace Best BLAST % Normal [facility] Comment on above: Performed By: #### C BCMAN ####[facility] [address]qvc[address]ifgf[address] [place] [id number]. Grace Best CORRECTED WBC Normal 4.0-11.0 The [facility] Comment on above: Performed By: #### C MYRTLE ####[facility] Fjwjzvieai7[address] [place] [id number] Best EOS # 0.00 103/ul Normal 0.00-0.70 [facility] Comment on above: Performed By: #### C MYRTLE ####[facility] Hgcpjkljhc5856 [place] [id number]. Grace Best EOS% 0.0 % Critically low 0.9-7.0 The [facility] Comment on above: Performed By: #### C MYRTLE ####[facility] Btxef[address] [place], [place] [address]Dr. Grace Best HCT 32.3 % Critically low 36.0-48.0 The [facility] Comment on above: Performed By: #### C MYRTLE ####[facility] Vmitedswur[address] [place] [address]Dr. Grace Best HGB 10.2 g/dl Critically low 12.0-16.0 The [facility] Comment on above: Performed By: #### C MYRTLE ####[facility] Hymjq[address]wyq[address] [place], [place] [address]Dr. Grace Best LYMPHM # 0.26 103/ul Critically low 1.20-3.80 [facility] Comment on above: Performed By: #### C MYRTLE ####[facility] Pbdojerofj7[address] [place] [id number]. Grace Best LYMPHM% 2.0 % Critically low 20.5-60.0 The [facility] Comment on above: Performed By: #### C MYRTLE ####[facility] Uosipalynl[address] [place], [place] [id number]. Grace Best MCH 28.9 pg Normal 26.7-34.0 [facility] Comment on above: Performed By: #### C MYRTLE ####[facility] Yobrxuvlpx[address] [place], [place] [address]Dr. Grace Best MCHC 31.6 g/dl Normal 29.9-35.2 [facility] Comment on above: Performed By: #### C MYRTLE ####[facility] Tpcowvzqdk77[address] [place] [id number]. Grace Best MCV 91.5 fL Normal 81.0-99.0 [facility] Comment on above: Performed By: #### C MYRTLE ####[facility] Fvqcfjfgal77[address] [place] [id number]. Grace Best METAMYELOCYTE # Normal [facility] Comment on above: Performed By: #### C MYRTLE ####[facility] Pgbxhmdjjx55[address] [place] [id number]. Grace Best METAMYELOCYTE % Normal [facility] Comment on above: Performed By: #### C MYRTLE ####[facility] Alkhkifpia[address] [place] [id number]. Grace Best MONOM# 0.26 103/ul Critically low 0.30-0.80 [facility] Comment on above: Performed By: #### C MYRTLE ####[facility] Fvicfkssjf05[address] [place] [id number]. Grace Best MONOM% 2.0 % Normal 1.7-12.0 [facility] Comment on above: Performed By: #### C MYRTLE ####[facility] Adlxqkefzg14[address] [place] [id number]. Grace Best MPV 9.3 fL Critically low 9.5-13.5 The [facility] Comment on above: Performed By: #### C MYRTLE ####[facility] Pzimerjmys[address] [place] [id number]. Grace Best MYELOCYTE # Normal [facility] Comment on above: Performed By: #### C MYRTLE ####[facility] Fmsnywtoze59[address] [place] [id number]. Grace Best MYELOCYTE % Normal [facility] Comment on above: Performed By: #### C MYRTLE ####[facility] Rdphrdngya94[address] [place] [phone]. Grace Best NRBC Normal [facility] Comment on above: Performed By: #### C BCMAN ####[facility] [address]ucndmdlhj[address] [place], [place] [address]Jd. Grace Best PLT 809 103/ul Critically high 150-450 [facility] Comment on above: Result Comment: NOT PLT CLUMPING OBSERVED Performed By: #### C MYRTLE ####[facility] Cuapnzpxqf8585 [place], [place] [address]Jr. Grace Best RBC 3.53 106/ul Critically low 4.20-5.40 [facility] Comment on above: Performed By: #### C MYRTLE ####[facility] Axcdiybdrj9082 [place], [place] [address]Ep. Grace Best RDW 16.8 % Critically high 11.0-15.0 [facility] Comment on above: Performed By: #### C MYRTLE ####[facility] Djqpfvtqpd6966 [place], [place] [address]Kx. Grace Best SEG # 12.16 103/ul Critically high 1.40-6.50 [facility] Comment on above: Performed By: #### C MYRTLE ####[facility] Fwmeaeicnc1121 [place], [place] [address]Iw. Grace Best SEG % 95.0 % Critically high 43.0-75.0 [facility] Comment on above: Performed By: #### C MYRTLE ####[facility] Yenvdribpd9566 [place], [place] [address]Bs. Grace Best WBC 12.8 103/ul Critically high 4.0-11.0 [facility] Comment on above: Performed By: #### C MYRTLE ####[facility] Tdlmrdozat8466 [place], [place] [address]Jy. Grace Best Covid-19 PCR ([facility])on 12-16 SARS-CoV-2 (COVID-19) RNA LOUISE+probe Ql (Unsp spec) Not detected Normal NOT DETECTED [facility] Comment on above: Result Comment: When diagnostic testing is negative, the possibility of a false negative should be considered inthe context of a patient's recent exposures and the presence of clinical signs and symptomsconsistent with SARS-CoV-2.This test is not yet approved or cleared by the [place] FDA. When there are no FDA-approved or cleared tests available, and other criteria are met, FDA can make tests available under an emergency access mechanism called an Emergency Use Authorization (EUA). The EUA for this test is supported by the [employer] of Health and Human Service's declaration that circumstances exist to justify the emergency use of in vitro diagnostics for the detection and/or diagnosis of the virus that causes COVID-19. This EUA will remain in effect for the duration of the COVID-19 declaration justifying emergency of IVDs, unless it is terminated or revoked by the FDA (after which the test may no longer be used). Performed By: #### C VDTBH ####[facility] Cwnhsceyya[address] [place], [place] [address]Dr. Grace Best LACTATE/LACTIC ACIDon 2021 Lactate [Moles/Vol] 5.0 mmol/L Critically high 0.4-1.9 [facility] Comment on above: Performed By: #### L ACT ####[facility] Eudgxqabkr[address] [place], [place] [address]Dr. Grace Best POINT OF CARE GLUCOSEon 12-16 Glucose [Mass/Vol] 302 mg/dL Critically high -106 [facility] Comment on above: Performed By: #### P OCGLUC ####[facility] Cobiiihpuw[address] [place], [place] [address]Dr. Grace Best Glucose [Mass/Vol] 311 mg/dL Critically high -106 [facility] Comment on above: Performed By: #### P OCGLUC ####[facility] Ymmmfbmwpx[address] [place], [place] [address]Dr. Grace Best Glucose [Mass/Vol] 273 mg/dL Critically high -106 [facility] Comment on above: Performed By: #### P OCGLUC ####[facility] Hxhwiidcjm[address] [place], [place] [address]Dr. Grace Best Glucose [Mass/Vol] 404 mg/dL Critically high -106 [facility] Comment on above: Performed By: #### P OCGLUC ####[facility] Wzuqgdwjbs[address] [place] [address]Dr. Grace Best POCGLUC >600 Critically high 74-106 [facility] Comment on above: Result Comment: Lab Draw Ordered Performed By: #### P OCGLUC ####[facility] Ksuorwtbqd9[address] [place] [address]Dr. Grace Best PROF 14(COMP METB)on 022 Albumin [Mass/Vol] 2.8 g/dL Critically low 3.4-5.0 [facility] Comment on above: Performed By: #### C MP ####[facility] Sgkpzetyic[address] [place] [address]Dr. Grace Best Albumin/Globulin [Mass ratio] 0.6 {ratio} Normal [facility] Comment on above: Performed By: #### C MP ####[facility] Ahlkvbaogf[address] [place] [address]Dr. Grace Best ALP [Catalytic activity/Vol] 132 U/L Critically high 46-116 [facility] Comment on above: Performed By: #### C MP ####[facility] Exwpghozzj[address] [place], [place] [address]Dr. Grace Best ALT [Catalytic activity/Vol] 24 U/L Normal 14-59 [facility] Comment on above: Performed By: #### C MP ####[facility] Ixdllumwdw34[address] [place] [address]Dr. Grace Best Anion gap [Moles/Vol] 25.7 mmol/L Normal [facility] Comment on above: Performed By: #### C MP ####[facility] Nezyophvly[address] [place] [address]Dr. Grace Best AST [Catalytic activity/Vol] 12 U/L Critically low 15-37 [facility] Comment on above: Performed By: #### C MP ####[facility] Ohlgelmdoi[address] [place] [address]Dr. Grace Best Bilirubin [Mass/Vol] 0.6 mg/dL Normal 0.2-1.0 [facility] Comment on above: Performed By: #### C MP ####[facility] Upzfmgfunz7037 [place] [id number]. Grace Best Calcium [Mass/Vol] 9.1 mg/dL Normal 8.5-10.1 [facility] Comment on above: Performed By: #### C MP ####[facility] Gxmwqdpmrm4[address] [place] [phone]. Grace Nasir Chloride [Moles/Vol] 89 mmol/L Critically low 98-107 [facility] Comment on above: Performed By: #### C MP ####[facility] Yuhjeezags3[address] [place] [address]Dr. Grace Nasir CO2 [Moles/Vol] 14.2 mmol/L Critically low 21.0-32.0 [facility] Comment on above: Performed By: #### C MP ####[facility] [address]epzvhxag[address] [place], [place] [address]Dr. Roxannega Nasir Creatinine [Mass/Vol] 1.33 mg/dL Critically high 0.55-1.02 [facility] Comment on above: Performed By: #### C MP ####[facility] Puglwzjdsu[address] [place], [place] [address]Dr. Roxannega Nasir EGFR-AF NORWEGIAN 50 mL/min/1.73m2 Critically low >=60 [facility] Comment on above: Performed By: #### C MP ####[facility] Vinujrvyiu[address] [place] [address]Dr. Roxannega Nasir EGFR-NON AF NORWEGIAN 41 mL/min/1.73m2 Critically low >=60 [facility] Comment on above: Performed By: #### C MP ####[facility] Tqusyqajjd[address] [place] [address]Dr. Grace Best Globulin (S) [Mass/Vol] 4.6 g/dL Normal [facility] Comment on above: Performed By: #### C MP ####[facility] Clrvvptiat9284 [place] [id number]. Grace Best Glucose [Mass/Vol] 826 mg/dL Critically high 74-106 [facility] Comment on above: Performed By: #### C MP ####[facility] Rligmtjuen5083 [place] [address]Dr. Grace Best Potassium [Moles/Vol] 4.9 mmol/L Normal 3.5-5.1 [facility] Comment on above: Performed By: #### C MP ####[facility] Ctqlhoptjw7139 [place] [address]Dr. Grace Best Protein [Mass/Vol] 7.4 g/dL Normal 6.4-8.2 [facility] Comment on above: Performed By: #### C MP ####[facility] [address]ikxqsdkfq[address] [place], [place] [address]Dr. Grace Best Sodium [Moles/Vol] 124 mmol/L Critically low 136-145 [facility] Comment on above: Performed By: #### C MP ####[facility] Yeopsvyfbn[address] [place], [place] [address]Dr. Grace Best Urea nitrogen [Mass/Vol] 28.0 mg/dL Critically high 7.0-18.0 [facility] Comment on above: Performed By: #### C MP ####[facility] Ykvdxuvtfb[address] [place], [place] [address]Dr. Grace Best Urea nitrogen/Creatinine [Mass ratio] 21.1 mg/mg Normal [facility] Comment on above: Performed By: #### C MP ####[facility] Kyzfxkjrdv[address] [place], [place] [address]Dr. Grace Best PROF CHEM 8 (BAS METB)on Anion gap [Moles/Vol] 11.0 mmol/L Normal [facility] Comment on above: Performed By: #### B MP ####[facility] Itkzuirsup[address] [place], [place] [address]Dr. Grace Best Calcium [Mass/Vol] 8.4 mg/dL Critically low 8.5-10.1 [facility] Comment on above: Performed By: #### B MP ####[facility] Bibzgmrymg[address] [place], [place] [address]Dr. Grace Best Chloride [Moles/Vol] 101 mmol/L Normal 98-107 [facility] Comment on above: Performed By: #### B MP ####[facility] Zlupxigfnj4494 [place] [address]Dr. Roxannega Nasir CO2 [Moles/Vol] 24.4 mmol/L Normal 21.0-32.0 [facility] Comment on above: Performed By: #### B MP ####[facility] Hihdysuoni[address] [place], [place] [address]Dr. Roxannega Nasir Creatinine [Mass/Vol] 0.87 mg/dL Normal 0.55-1.02 [facility] Comment on above: Performed By: #### B MP ####[facility] Eiwkkbuxyk[address] [place], [place] [address]Dr. Roxannega Nasir EGFR-AF NORWEGIAN >60 Normal >=60 [facility] Comment on above: Performed By: #### B MP ####[facility] Qorhlkryxy[address] [place], [place] [address]Dr. Grace Best EGFR-NON AF NORWEGIAN >60 Normal >=60 [facility] Comment on above: Performed By: #### B MP ####[facility] Rmdoelfwgn[address] [place], [place] [address]Dr. Grace Best Glucose [Mass/Vol] 293 mg/dL Critically high 74-106 [facility] Comment on above: Performed By: #### B MP ####[facility] Zyhtgkwvrh[address] [place], [place] [address]Dr. Grace Best Potassium [Moles/Vol] 4.4 mmol/L Normal 3.5-5.1 [facility] Comment on above: Performed By: #### B MP ####[facility] Hnzqemwkse[address] [place], [place] [address]Dr. Grace Best Sodium [Moles/Vol] 132 mmol/L Critically low 136-145 [facility] Comment on above: Performed By: #### B MP ####[facility] Zrkbbkkady[address] [place], [place] [address]Dr. Grace Best Urea nitrogen [Mass/Vol] 25.0 mg/dL Critically high 7.0-18.0 [facility] Comment on above: Performed By: #### B MP ####[facility] Smeigjjsjw[address] [place] [address]Dr. Grace Best Urea nitrogen/Creatinine [Mass ratio] 28.7 mg/mg Normal [facility] Comment on above: Performed By: #### B MP ####[facility] Hkakffmhiw35[address] [place] [address]Dr. Grace Best PROTIMEon 01-07-2022 INR Coag (PPP) [Relative time] 0.93 {INR} Normal [facility] Comment on above: Performed By: #### P T, PTT ####[facility] Rvfdkyncdx[address] [place], [place] [address]Dr. Grace Best INR GUIDELINES SEE BELOW Normal [facility] Comment on above: Result Comment: BRANDY RED INR: 2.0 - 3.0 CONDITIONS NOT LISTED BELOW 2.5 - 3.5 FOR PROSTHETIC HEART VALVE REPLACEMENT 2.5 - 3.5 RECURRENT THROMBOSIS Performed By: #### P T, PTT ####[facility] [address] [place], [place] [address]Dr. Grace Best PT Coag (PPP) [Time] 10.1 s Normal 9.0-11.6 [facility] Comment on above: Performed By: #### P T, PTT ####[facility] Munlatpgus[address] [place] [address]Dr. Grace Best PTTon 01-07-2022 aPTT Coag (Bld) [Time] 26.2 s Normal 22.3-36.2 [facility] Comment on above: Performed By: #### P T, PTT ####[facility] [address] [place], [place] [address]Dr. Grace Best XR CHEST 1 Von 01-07-2022 XR CHEST 1 V Normal [facility] Follow Up (Endocrinology)on 10-25-2021 Follow Up (Endocrinology) Diagnoses/Problems Assessed Insulin long-term use (V58.67) (Z79.4) Uncontrolled type 1 diabetes mellitus with hyperglycemia (250.83,790.29) (E10.65) Insulin pump status (V45.85) (Z96.41) Orders Uncontrolled type 1 diabetes mellitus with hyperglycemia Hemoglobin A1C; Status:Active; Requested for:[id number]; Perform:Lab Services - Lab To Draw (Blood Test); Due:[id number];Ordered; For:Uncontrolled type 1 diabetes mellitus with hyperglycemia; Ordered By:Jose Villasenor; Patient Discussion/Summary Thank you for coming to Endocrinology! You may follow the 30-60-90 rule with your dexcom arrows as predictive bolusing - use handout printed in clinic today continue your current insulin pump settings Return to clinic in 4-5 months, please update your labs before our next appointment basal: 00:00 - 1.1 04:00 - 1.3 08:00 - 1.1 11:30 - 1.2 15:00 - 1.2 16:00 - 1.4 20:00 - 1.4 20:30 - 1.4 22:00 - 1.2 ISF: 00:00 - 15:00 = 38 15:00 - 20:00 = 35 20:00 - 00:00 = 38 ICR: 00:00 - 11:30 = 8 11:30 - 15:00 = 6.5 15:00 - 16:00 = 7 16:00 - 20:30 = 5.5 20:30 - 00:00 = 10 AIT = 5hr Provider Impressions Shelly is interested an engaged in the improvement of their glycemic control and overall wellness at this time. They were alert and engaged in all education conversation. They would benefit from the improved ease of glucose monitoring compliance seen with continued use of personal CGM device such as the Dexcom G6 Pt would benefit from use of her [employer] with [employer] IQ software download. she continues to have difficulty with tconnect login Chief Complaint f/u DM1 History of Present IllnessCHIKIS TOBAR is being seen for routine follow-up for, type 1 diabetes. Date of last HbA1c: 06/07/21 and results: 9.2%. Current DM Regimen:. insulin. pump. CGM. compliant with current DM regimen. Home Glucose Monitoring: Source: [employer] device downloaded, reviewed and scanned into chart. Frequency of Testing: Testing done daily. Testing done with meals. Compliant with home glucose monitoring. Glucose Ranges: 76-380. No recent hypoglycemic episodes. Diet Plan: Type of Diet: Carb counting Patient is compliant with diet plan. Diabetes Surveillance: Foot exam/plumber's helper: 08/03/20. Diabetes Complications: Opthalmic: Has eye complications Cardiovascular: no coronary artery disease. Renal: no nephropathy. Neurologic: peripheral neuropathy. Other complications: DKA requiring hospitalization: 05/2021. pt was nauseated after surgery and abx for bladder cx - tumor removed in february 2021 - anesthesiologist allowed insulin pump use during procedure and after tumor board advised total hysterectomy with L oopherectormy - cystectectomy and vaginal lining removal - completed apr 20 (stayed for 4 days at [facility]) - pt was not permitted to wear insulin pump within that hospitalization - - glucose went very high to 500's in hospital without pump abdomen swollen - suspected poor insulin absorption due to swelling home glucose fairly well controlled since she has been home for last few weeks You may follow the 30-60-90 rule with your dexcom arrows as predictive bolusing - for single arrow up, add 60 to your current sugar reading as your bolus input - for double arrow up, add 90 to your current sugar reading as your bolus input - for single arrow down, subtract 60 from your current sugar reading as your bolus input - for double arrow down, subtract 90 from your current sugar reading as your bolus input Pt's tandem tconnect account linked to provider's access, she agrees to work on uploading her pump to this website for provider view at appointments after dinner getting hypeglycemic - we discussed option to strengthen carb ratio at dinner time from 1:6 to 1:5.5 she is having stabbing pelvic pain and difficulty walking with pelvic fluid collection Review of Systems Constitutional: no fever, no chills, normal appetite, no recent weight gain and no recent weight loss. Eyes: no eye pain, no double vision and no change in vision. ENT: no hearing loss, no dental problems, no sore throat, no change in voice and as noted in HPI. Cardiovascular: no chest pain, no palpitations, no intermittent leg claudication and no lower extremity edema. Respiratory: no shortness of breath, no wheezing and no cough. Gastrointestinal: no abdominal pain, no constipation, no nausea, no diarrhea and no vomiting. Genitourinary: no dysuria, no incontinence and no urinary hesitancy. Musculoskeletal: no arthralgias, no myalgias, no muscle cramps, no joint swelling, no joint stiffness and no limb pain. Integumentary: no change in skin color, no skin lesions, no itching, no excessive sweating and no skin wound. Neurological: no confusion, no convulsions, no dizziness, no fainting, no tremors, no foot pain, no limb weakness and no difficulty walking. Psychiatric: no anxiety, no depression, no personality change, no emot (more content not included)... Normal [employer] Tobacco Screening.on 022 Fall risk assessment a) No falls within the last year [facility] Work Phone: Tobacco use status [facility] b) No M G-Endocrino logThe [employer] Work Phone: COLONOSCOPY SCREENINGon [facility] EGD DIAGNOSTICon 09-21-2021 [facility] GLUCOSE, BLOOD (POC)on 09-21 Glucose [Mass/Vol] 65 mg/dL 74 - 99 mg/dL [facility] Follow Up (Endocrinology)on 06-21-2021 Follow Up (Endocrinology) Diagnoses/Problems Assessed Uncontrolled type 1 diabetes mellitus with hyperglycemia (250.83,790.29) (E10.65) Insulin pump status (V45.85) (Z96.41) Insulin long-term use (V58.67) (Z79.4) Orders Uncontrolled type 1 diabetes mellitus with hyperglycemia Renew: Baqsimi Two Pack 3 MG/DOSE Nasal Powder; Please use as directed for emergent low hypoglycemia Rx By: Jose Villasenor; Dispense: 90 Days ; #:1 Each; Refill: 3;For: Uncontrolled type 1 diabetes mellitus with hyperglycemia; CAL = N; Verified Transmission to [facility]; Last Updated By: [employer] 06/21/2021 7:19:06 PM Patient Discussion/Summary Thank you for coming to Endocrinology! You may follow the 30-60-90 rule with your dexcom arrows as predictive bolusing - use handout printed in clinic today continue your current insulin pump settings Return to clinic in 3-4 months, please update your labs before our next appointment basal: 00:00 - 1.1 04:00 - 1.3 08:00 - 1.1 11:30 - 1.2 15:00 - 1.2 16:00 - 1.4 20:00 - 1.4 20:30 - 1.4 22:00 - 1.2 ISF: 00:00 - 15:00 = 38 15:00 - 20:00 = 35 20:00 - 00:00 = 38 ICR: 00:00 - 11:30 = 8 11:30 - 15:00 = 6.5 15:00 - 16:00 = 7 16:00 - 20:30 = 6 20:30 - 00:00 = 10 AIT = 5hr Provider Impressions Shelly is interested an engaged in the improvement of their glycemic control and overall wellness at this time. They were alert and engaged in all education conversation. They would benefit from the improved ease of glucose monitoring compliance seen with continued use of personal CGM device such as the Dexcom G6 Pt would benefit from use of her tandem tslim with control IQ software download. she continues to have difficulty with tconnect login Chief Complaint f/u DM1 History of Present IllnessCHIKIS TOBAR is being seen for follow-up of a recent hospitalization for, type 1 diabetes. Date of last HbA1c: 06/07/21 and results: 9.2%. Current DM Regimen:. insulin. pump. CGM. compliant with current DM regimen. Home Glucose Monitoring: Source: reported by patient. Frequency of Testing: Testing done daily. Testing done with meals. Compliant with home glucose monitoring. Glucose Ranges: 76-380. No recent hypoglycemic episodes. Diet Plan: Type of Diet: Carb counting Patient is compliant with diet plan. Diabetes Surveillance: Foot exam/plumber's helper: 08/03/20. Diabetes Complications: Opthalmic: Has eye complications Cardiovascular: no coronary artery disease. Renal: no nephropathy. Neurologic: peripheral neuropathy. Other complications: DKA requiring hospitalization: 05/2021. pt was nauseated after surgery and abx for bladder cx - tumor removed in february 2021 - anesthesiologist allowed insulin pump use during procedure and after tumor board advised total hysterectomy with L oopherectormy - cystectectomy and vaginal lining removal - completed apr 20 (stayed for 4 days at [facility]) - pt was not permitted to wear insulin pump within that hospitalization - - glucose went very high to 500's in hospital without pump home glucose fluctuant abdomen swollen - suspected poor insulin absorption due to swelling home glucose fairly well controlled since she has been home for last few weeks You may follow the 30-60-90 rule with your dexcom arrows as predictive bolusing - for single arrow up, add 60 to your current sugar reading as your bolus input - for double arrow up, add 90 to your current sugar reading as your bolus input - for single arrow down, subtract 60 from your current sugar reading as your bolus input - for double arrow down, subtract 90 from your current sugar reading as your bolus input Pt's tandem [employer]connect account linked to provider's access, she agrees to work on uploading her pump to this website for provider view at appointments Review of Systems Constitutional: no fever, no chills, normal appetite, no recent weight gain and no recent weight loss. Eyes: no eye pain, no double vision and no change in vision. ENT: no hearing loss, no dental problems, no sore throat, no change in voice and as noted in HPI. Cardiovascular: no chest pain, no palpitations, no intermittent leg claudication and no lower extremity edema. Respiratory: no shortness of breath, no wheezing and no cough. Gastrointestinal: no abdominal pain, no constipation, no nausea, no diarrhea and no vomiting. Genitourinary: no dysuria, no incontinence and no urinary hesitancy. Musculoskeletal: no arthralgias, no myalgias, no muscle cramps, no joint swelling, no joint stiffness and no limb pain. Integumentary: no change in skin color, no skin lesions, no itching, no excessive sweating and no skin wound. Neurological: no confusion, no convulsions, no dizziness, no fainting, no tremors, no foot pain, no limb weakness and no difficulty walking. Psychiatric: no anxiety, no depression, no personality change, no emotional problems, no suicidal ideation, no sleep disturbances and no panic attacks. (more content not included)... Normal [facility] Tobacco Screening.on 022 Fall risk assessment a) No falls within the last year [facility] Work Phone: Tobacco use status CPHS b) No M [facility] Work Phone: XR ABDOMEN 1V SUPINEon 05-25 XR ABDOMEN 1V SUPINE * * *Final Report* * * DATE OF EXAM: May 25 2021 5:39PM VHX [id number] - XR ABDOMEN 1V SUPINE / PROCEDURE REASON: Malignant neoplasm of urinary bladder, unspecified site (HCC) * * * * Physician Interpretation * * * * CLINICAL: Malignant neoplasm of the urinary bladder is also TECHNIQUE: Single KUB of the abdomen. FINDINGS: A nonspecific nonobstructive bowel gas pattern is present. No pathologic calcifications are seen. The osseous structures are grossly normal. IMPRESSION: Unremarkable KUB of the abdomen.. Stamp Pad Maker: PSCLeslie Transcribe Date/Time: May 25 2021 5:42P Dictated by : ENOC DODSON MD This examination was interpreted and the report reviewed and electronically signed by: ENOC DODSON MD on May 25 2021 5:49PM EST [id number] Normal [facility] RAD - Ultrasound Reporton RAD - Ultrasound Report [id number] D:127 Normal [facility] Tobacco Screening.on 021 Fall risk assessment a) No falls within the last year [facility] Work Phone: Tobacco use status CPHS b) No M [facility] [employer] Work Phone: Gynecology Office/Clinic Not mara 01-13-2021 Gynecology Office/Clinic Note Chief Complaint New pt. Establishing care, Mirena IUD Removal History of Present Illness Pelvic Pain: No Painful Sex: No Abnormal Vaginal Discharge: No Abnormal Vaginal Bleeding: Yes Vaginal Itch: No Vaginal Burning: No Vaginal Odor: No Hot Flashes: No Breast Lump: No Breast Pain: No Contraception Type: Intrauterine device 55 y/o G0, New patient here with c/o abnormal vaginal bleeding. Has had Mirena in for about 7 years. She is unsure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 weight 86.72 kg Jose Omoregie PA-C Work Phone: XC-Xbwoqwovjb-Ygmlm armani 2300 Work Phone: 02-01-2021 15:26-0400 Diastolic blood pressure 75 mm[Hg] Jose Omoregie PA-C Work Phone: KE-Hfrpxgxekx-Uoeai armani 2300 Work Phone: 02-01-2021 15:26-0400 Heart rate 70 /min Jose Omoregie PA-C Work Phone: OJ-Axgsuwyegm-Kkmhk armani [address]00 Work Phone: 02-01-2021 15:26-0400 SaO2% (BldA) [Mass fraction] 98 % Jose Omoregie PA-C Work Phone: VX-Akkeuhblzy-Siruj [address] Work Phone: 02-01-2021 15:26-0400 Systolic blood pressure 137 mm[Hg] Jose Omoregie PA-C Work Phone: CQ-Emxtcheqnm-Kjkjj [address]i 2307 Work Phone: 02-18-2019 17:26-0500 BMI (Body Mass Index) 30.39 kg/m2 Jose Omoregie VD-Jtqziwudqjrwp-Qu [facility] Work Phone: 02-18-2019 17:26-0500 Body weight 85.42 kg Jose Omoregie MG-Endocrinolog y-[facility] Work Phone: 02-18-2019 17:26-0500 BP Diastolic 64 mm[Hg] Jose Omoregie MG-Endocrinolog y-[facility] Work Phone: Comment on above: Location: LUE; Position: Sitting 02-18-2019 17:26-0500 BP Systolic 123 mm[Hg] Jose Omoregie MG-Endocrinolog y-[facility] Work Phone: Comment on above: Location: LUE; Position: Sitting 02-18-2019 17:26-0500 BSA (Body Surface Area) 1.95 m2 Jose Omoregie UJ-Blmpurtlbxzjq-Fd [facility] Work Phone: 02-18-2019 17:26-0500 Height 167.64 cm Jose Omoregie MG-Endocrinolog y-[facility] Work Phone: 02-18-2019 17:26-0500 Pulse (Heart Rate) 68 /min Jose Omoregie MG-Endocrino logy-[facility] Work Phone: 02-18-2019 17:26-0500 Pulse Oximetry 100 % Jose Omoregie MG-Endocrinolog y-Ch [facility] Work Phone: 02-18-2019 17:26-0500 Respiratory Rate 16 /min Jose Omestella MG-Endocrinolo gy-Ch [facility] Work Phone: Encounters Encounter Date Encounter Type Care Provider Facility Start: 06-21-2023 End: 06-21-2023 ambulatory AASHISH KATHLEENLURDES Facility:[facility] Start: 06-21-2023 End: 06-21-2023 ambulatory Aashish Monge PA-C Work Phone: [facility] [place] Comment on above: Closed nondisplaced transverse fracture of left patella, initial encounter (Primary Dx) Start: 06-21-2023 End: 06-21-2023 Telemedicine consultation with patient Aashish Monge PA-C Work Phone: [facility] Start: 06-20-2023 ambulatory No Pcp STEVEN Vazquez Start: 06-19-2023 ambulatory KALLI WHITE Facility :[facility] Start: 06-18-2023 End: 06-18-2023 ambulatory KALLI WHITE Facility:[facility] Start: 05-28-2023 End: 05-28-2023 ambulatory Juliette Berumen Other [employer] Other Start: 05-28-2023 Office outpatient visit 15 minutes Juliette Berumen [facility] Start: 05-10-2023 End: 05-10-2023 ambulatory AASHISH MONGE Facility:[facility] Start: 05-10-2023 ambulatory AASHISH MONGE Facili ty:[facility] Start: 05-10-2023 End: 05-11-2023 ambulatory JAMIE GUARDADO Facility:[facility] Start: 05-10-2023 End: 05-10-2023 ambulatory KALLI WHITE Facility:[facility] Start: 05-09-2023 End: 05-09-2023 ambulatory KALLI WHITE Facility:[facility] Start: 04-25-2023 End: 04-25-2023 ambulatory Juliette Berumen Other [employer] Other Start: 04-25-2023 Office outpatient visit 15 minutes Juliette Berumen [facility] Start: 04-17-2023 End: 04-17-2023 ambulatory KALLI WHITE Facility:[facility] Start: 04-12-2023 End: 04-12-2023 ambulatory Juliette Berumen Other [employer] Other Start: 04-12-2023 Telephone encounter Juliette AU [facility] Start: 03-19-2023 End: 03-20-2023 ambulatory KALLI WHITE Facility:[facility] Start: 03-19-2023 End: 03-19-2023 Patient encounter procedure Jamie Guardado MD Work Phone: Infectious Disease Comment on above: Fungal meningitis (P rimary Dx); Acute pain of both shoulders; Obstructive hydrocephalus (HCC); Therapeutic drug monitoring; 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; Spinal cord mass (HCC); Type 1 diabetes mellitus with unspecified complications (HCC); Myelitis (HCC) Start: 03-02-2023 End: 03-02-2023 ambulatory Shelbi Lopez Other [employer] Other Start: 03-02-2023 Office outpatient visit 15 minutes Shelbi Lopez [facility] Start: 02-20-2023 End: 02-20-2023 ambulatory KALLI WHITE Facility:[facility] Start: 01-21-2023 End: 01-21-2023 ambulatory Juliette Berumen Other [employer] Other Start: 01-21-2023 Telephone encounter Juliette AU [facility] Start: 01-18-2023 End: 01-18-2023 ambulatory uJliette Berumen Other [employer] Other Start: 01-18-2023 Patient encounter procedure Juliette Berumen [facility] Start: 01-15-2023 End: 01-15-2023 ambulatory KALLI WHITE Facility:[facility] Start: 01-15-2023 End: 01-15-2023 Patient encounter procedure Jamie Guardado MD Work Phone: Infectious Disease Comment on above: Fungal meningitis (P rimary Dx); Obstructive hydrocephalus (HCC); Spinal cord mass (HCC); Type 1 diabetes mellitus with unspecified complications (HCC); Myelitis (HCC); 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 Start: 01-10-2023 Telephone encounter Zarina Norton RN Ur ology Comment on above: Urinary supply probl em Start: 01-09-2023 End: 01-09-2023 ambulatory KALLI WHITE Facility:[facility] Start: 01-09-2023 End: 01-09-2023 Patient encounter procedure Peterson Gonsalez MD Work Phone: Urology Comment on above: History of bladder c ancer (Primary Dx) Start: 01-02-2023 End: 01-02-2023 ambulatory Juliette Berumen Other [employer] Other Start: 01-02-2023 Telephone encounter Juliette [place] [facility] Start: 12-25-2022 End: 12-25-2022 ambulatory KALLI WHITE Facility:[facility] Start: 12-14-2022 End: 12-14-2022 ambulatory KALLI WHITE Facility:[facility] Start: 12-14-2022 End: 12-14-2022 Patient encounter procedure Marlene Cordero PA-C Work Phone: [facility] [place] Comment on above: Other hydrocephalus (HCC) (Primary Dx) Start: 11-15-2022 End: 11-15-2022 ambulatory KALLI WHITE Facility:[facility] Start: 10-18-2022 End: 10-18-2022 ambulatory KALLI WHITE Facility:[facility] Start: 10-18-2022 End: 10-18-2022 Patient encounter procedure Jamie Guardado MD Work Phone: Infectious Disease Comment on above: Therapeutic drug mon itoring (Primary Dx); Fungal meningitis; Spinal cord mass (HCC); Type 1 diabetes mellitus with unspecified complications (HCC) Start: 10-03-2022 End: 10-03-2022 ambulatory Juliette Berumen Facility:[facility] Start: 10-03-2022 End: 10-03-2022 ambulatory DO Juliette Berumen Work Phone: [facility] Work Phone: Start: 10-03-2022 End: 10-03-2022 Patient encounter procedure DO Juliette Berumen Work Phone: [facility]-Electrodiagnostics Work Phone: Start: 10-03-2022 ambulatory Deandra Roth Facili ty:[id number] Start: 09-28-2022 End: 09-28-2022 ambulatory Marjorie Headley Facility:[facility] Start: 09-28-2022 End: 09-28-2022 ambulatory DO Juliette Berumen Work Phone: [facility] Work Phone: Start: 09-28-2022 End: 09-28-2022 Discharged Recurring DO Juliette Berumen Work Phone: [facility] [place] Work Phone: Start: 09-26-2022 End: 09-26-2022 ambulatory Kalli White Other [employer] Other Start: 09-26-2022 Office outpatient visit 15 minutes Kalli White [facility] Start: 09-21-2022 End: 09-21-2022 ambulatory KALLI WHITE Facility:[facility] Start: 09-21-2022 End: 09-21-2022 Patient encounter procedure Marlene Cordero PA-C Work Phone: [facility] [place] Comment on above: Other hydrocephalus (HCC) (Primary Dx) Start: 09-15-2022 End: 09-15-2022 ambulatory Juliette Berumen Other [employer] Other Start: 09-15-2022 Office outpatient visit 25 minutes Juliette Berumen [facility] Start: 09-14-2022 End: 09-14-2022 ambulatory KALLI WHITE Facility:[facility] Start: 09-14-2022 End: 09-14-2022 Subsequent hospital visit by physician [facility] Miriam Work Phone: Radiology Comment on above: Other hydrocephalus (HCC) [G91.8] Start: 08-25-2022 Telephone encounter Juliette AU [facility] Start: 08-25-2022 End: 08-25-2022 ambulatory KALLI WHITE [facility] [employer] Other Start: 08-25-2022 End: 08-25-2022 Patient encounter procedure Marlene Cordero PA-C Work Phone: [facility] [place] Comment on above: Other hydrocephalus (HCC) (Primary Dx); Severe protein-calorie malnutrition (HCC) Start: 08-23-2022 Telephone encounter Marlene galan PA-C Work Phone: [facility] [place] Comment on above: Patient Update Start: 08-21-2022 End: 08-22-2022 ambulatory KALLI WHITE Facility:[facility] Start: 08-17-2022 End: 08-17-2022 ambulatory Juliette Berumen Other [employer] Other Start: 08-17-2022 Telephone encounter Jamie stone MD Work Phone: Infectious Disease Comment on above: Patient Question Start: 08-16-2022 Telephone encounter Juliette AU G [facility] Start: 08-16-2022 End: 08-16-2022 Nutrition therapy Peterson Gonsalez MD Work Phone: Urology Comment on above: Malignant neoplasm o f urinary bladder, unspecified site (HCC) (Primary Dx); Severe protein-calorie malnutrition (HCC); Type 1 diabetes mellitus with unspecified complications (HCC) Start: 08-16-2022 End: 08-16-2022 Telemedicine consultation with patient Peterson Gonsalez MD Work Phone: [place] Start: 08-16-2022 End: 08-17-2022 ambulatory KALLI WHITE [facility] Other Start: 08-11-2022 End: 08-11-2022 ambulatory Juliette Berumen Other [employer] Other Start: 08-11-2022 Office outpatient visit 25 minutes Juliette Berumen [facility] Start: 08-09-[address] [facility] Facility : Start: 08-07-2022 End: 08-07-2022 ambulatory Juliette Berumen Other [employer] Other Start: 08-07-2022 Telephone encounter Juliette Berumen [facility] Start: 08-04-2022 End: 08-04-2022 ambulatory Juliette Berumen Other [employer] Other Start: 08-04-2022 Telephone encounter Juliette Berumen [facility] Start: 07-25-2022 End: 07-25-2022 ambulatory Juliette Berumen Other [employer] Other Start: 07-25-2022 Telephone encounter Juliette Berumen [facility] Start: 07-21-2022 End: 08-01-2022 Evaluation and management of inpatient KALLI [facility] Start: 07-20-2022 End: 07-20-2022 Orders Only Maris Campos MD Work Phone: Endovascular Center Comment on above: Other hydrocephalus (HCC) (Primary Dx) Start: 07-19-2022 Orders Only Jamie Adams Work Phone: [facility] Comment on above: Cervicalgia (Primary Dx) Start: 07-14-2022 End: 07-14-2022 ambulatory Juliette Berumen Other [employer] Other Start: 07-14-2022 Telephone encounter Juliette Berumen [facility] Start: 06-28-2022 End: 06-28-2022 ambulatory Juliette Berumen Other [employer] Other Start: 06-28-2022 Telephone encounter Juliette Berumen [facility] Start: 06-08-2022 Telephone encounter Mik marie MD Work Phone: [place] Provider Adult Comment on above: Hospital To Hospital Start: 05-27-2022 End: 06-10-2022 Evaluation and management of inpatient Rock Layla Facility:[facility] Start: 05-27-2022 End: 05-27-2022 ambulatory MAMADOU JODY Facility: Start: 05-25-2022 End: 05-25-2022 ambulatory Juliette Berumen Other [employer] Other Start: 05-25-2022 Nursing facility discharge management 30 minutes Juliette [place] [facility] Start: 05-21-2022 End: 05-21-2022 ambulatory Juliette Berumen Other [employer] Other Start: 05-21-2022 Telephone encounter Juliette AU [place] [facility] Start: 05-15-2022 End: 05-15-2022 ambulatory Juliette Berumen Other [employer] Other Start: 05-15-2022 Telephone encounter Juliette AU [facility] Start: 05-08-2022 End: 05-12-2022 Evaluation and management of inpatient DR GAURI JOY . Facility:[facility] Start: 05-02-2022 End: 05-02-2022 Patient encounter procedure Peterson Gonsalez MD Work Phone: Urology Comment on above: History of bladder c ancer (Primary Dx) Start: 04-25-2022 End: 04-26-2022 ambulatory KALLI WHITE [facility] Start: 04-25-2022 ambulatory PETERSON GONSALEZ Facility:[facility] Start: 04-16-2022 End: 05-06-[address] JULIETTE BERUMEN Facility:[facility] Start: 03-29-2022 End: 04-01-2022 Evaluation and management of inpatient DR CLARE MONTESINOS . Facility:[facility] Start: 03-22-2022 End: 04-15-[address] JULIETTE BERUMEN Facility:[facility] Start: 03-13-2022 End: 03-13-2022 Patient encounter procedure Andrew Gong MD Work Phone: General Surgery Comment on above: S/P exploratory lapa rotomy (Primary Dx); Severe protein-calorie malnutrition (HCC); Chronic low back pain without sciatica, unspecified back pain laterality Start: 03-09-2022 End: 03-09-[address] ALYCE ZHAO Facility:[facility] Start: 02-24-2022 End: 02-24-[address] ALY GONG Facility:[facility] Start: 02-10-2022 End: 02-10-2022 Patient encounter procedure Andrew Gong MD Work Phone: General Surgery Comment on above: S/P exploratory lapa rotomy (Primary Dx); Severe protein-calorie malnutrition (HCC) Start: 01-31-2022 End: 02-01-[address] JULIETTE BERUMEN Facility:[facility] Start: 01-31-2022 Telephone encounter Peterson Mendes si, MD Work Phone: Urology Comment on above: Appointment Patient Question Start: 01-30-2022 End: 01-30-2022 Patient encounter procedure Andrew Gong MD Work Phone: General Surgery Comment on above: Severe protein-calor ie malnutrition (HCC) (Primary Dx); S/P exploratory laparotomy Start: 01-30-2022 End: 01-30-2022 Patient encounter procedure Peterson Gonsalez MD Work Phone: Urology Comment on above: History of bladder c ancer (Primary Dx); Malignant neoplasm of urinary bladder, unspecified site (HCC) Start: 01-27-2022 Telephone encounter Peterson Mendes si, MD Work Phone: Urology Comment on above: Appointment Start: 01-23-2022 ambulatory Deandra Fleming ty:[id number] Start: 01-20-2022 Telephone encounter Kalli peterson MD Work Phone: [address] [place] [address] Comment on above: Follow Up Phone Call (All clear ) Start: 01-18-2022 Telephone encounter Peterson Mendes si, MD Work Phone: Urology Comment on above: Appointment Confirma tion Start: 01-08-2022 End: 01-09-2022 Evaluation and management of inpatient Jayashree Watts Facility:[facility] Start: 01-08-2022 End: 01-08-2022 Evaluation and management of inpatient DO Juliette Berumen Work Phone: [facility] Start: 01-07-2022 End: 01-07-2022 Orders Only Diego Kruger MD Work Phone: General Surgery Start: 12-22-2021 Telephone encounter Peterson Mendes si, MD Work Phone: Urology Comment on above: Appointment Start: 12-19-2021 Rx Renewal Jose gagnon PA-C Work Phone: VA-Edbbjhhuelbfj-KAF [place] [address] Work Phone: Start: 12-16-2021 Telephone encounter Peterson Mendes si, MD Work Phone: Urology Comment on above: Patient Update Start: 12-15-2021 Telephone encounter Peterson Mendes si, MD Work Phone: Urology Comment on above: Orders Start: 12-14-2021 Telephone encounter Peterson Mendes si, MD Work Phone: Urology Comment on above: Results; Patient Upd ate Start: 12-01-2021 End: 12-01-2021 Subsequent hospital visit by physician [facility] Radiology Comment on above: Canceled (CC cx: Equ ipment, Prep, Appropriateness) Start: 11-30-2021 End: 11-30-2021 Orders Only Peterson Gonsalez MD Work Phone: Urology Comment on above: Malignant neoplasm o f urinary bladder, unspecified site (HCC) (Primary Dx) APPOINTMENT CANCELLE D (Primary Dx) Start: 10-31-2021 Orders Only Peterson Adams Work Phone: Urology Comment on above: Results Start: 10-25-2021 Office outpatient visit 25 minutes Jose Kimberlyn PA-C Work Phone: DB-Mkeswbobhqpjp-RRV [place] [address] Work Phone: Start: 10-12-2021 Telephone encounter Chelsie Mg RN R adiology Pet CT Comment on above: Lab Orders Start: 10-11-2021 End: 10-11-2021 Patient encounter procedure Peterson Gonsalez MD Work Phone: Urology Comment on above: History of bladder c ancer (Primary Dx); Abdominal pain, unspecified abdominal location Start: 10-07-2021 Telephone encounter Peterson Mendes si, MD Work Phone: Urology Comment on above: Sooner appointment r equest Start: 09-21-2021 End: 09-21-2021 Subsequent hospital visit by physician Myrna Mendez MD Work Phone: Ambulatory Surgery Comment on above: Nausea and vomiting, unspecified vomiting type [R11.2] Start: 08-23-2021 End: 08-23-2021 Patient encounter procedure Jose Orellana APRN.CNP Work Phone: Gastroenterology Comment on above: Encounter for screen ing for malignant neoplasm of colon (Primary Dx); Nausea and vomiting, unspecified vomiting type; Early satiety; Nausea Start: 06-21-2021 Office outpatient visit 25 minutes Jose Carmenoregie PA-C Work Phone: JN-Qaehblbibuaod-LSL [place] [address] Work Phone: Start: 06-21-2021 Patient encounter procedure Jose Carmenoregie PA-C Work Phone: OK-Tkufsmeogmkpf-PUL [place] [address] Work Phone: Start: 05-25-2021 ambulatory PETERSON GONSALEZ Facility:[facility] Start: 02-04-2021 End: 02-04-2021 Telephone encounter Peterson Gonsalez MD Work Phone: Urology Comment on above: Appointment Request Outside [facility] Start: 02-01-2021 Office outpatient visit 25 minutes Jose Carmenoregie PA-C Work Phone: LS-Tzgzkpxhpcxnt-XBB [place] [address] Work Phone: Start: 02-01-2021 Patient encounter procedure Jose Omestella PA-C Work Phone: TF-Vahdkswvgf-Cslmlrbz 2300 Work Phone: Start: 09-06-2020 AUDIT Jose gagnon PA-C Work Phone: AK-Bnkzhrtfugvtd-XOT [place] [address] Work Phone: Start: 07-24-2019 Patient encounter procedure Jose Moralesoregkalin CC-Rivnvixshsrbf-ORF [place] [address] Work Phone: Start: 06-13-2019 End: 06-16-2019 Patient encounter procedure KALLI WHITE [facility] Start: 06-13-2019 End: 06-15-2019 Subsequent hospital visit by physician Luther [facility] Comment on above: Right wrist pain Start: 04-29-2019 Patient encounter procedure Jose Villasenor RE-Vyyjwbdyhwbxm-MGG [place] [address] Work Phone: Start: 02-18-2019 Patient encounter procedure Jose Omoregkalin PK-Pzjpujvcrhxoe-MUL [place] [address] Work Phone: Procedures Date Procedure Procedure Detail Performing Clinician Start: 09-14-2022 Ct head/brain w/o contrast material Marlene Cordero PA-C Work Phone: Start: 07-09-2022 Antibody screen KALLI WHITE Comment on above: Order Comment: Specimen Type: BLOOD SPEC IMENOrdering Facility: [facility] Address: [address] [place] [address] Performed By: #### T SCR ####CC MAIN BLOOD BANKCLIA [id number] [address] Start: 06-29-2022 Antibody screen KALLI WHITE Comment on above: Order Comment: Specimen Type: BLOOD SPEC IMENOrdering Facility: [facility] Address: [address] [place] [address] Performed By: #### T SCR ####CC MAIN BLOOD BANKCLIA [id number] [address] Start: 06-25-2022 Antibody screen KALLI WHITE Comment on above: Order Comment: Specimen Type: BLOOD SPEC IMENOrdering Facility: [facility] Address: [address] [address] Performed By: #### T SCR ####CC MAIN BLOOD BANKCLIA [id number] [address] Start: 06-23-2022 Antibody screen KALLI WHITE Comment on above: Order Comment: Specimen Type: BLOOD SPEC IMENOrdering Facility: [facility] Address: [address] [address] Performed By: #### T SCR ####CC MAIN BLOOD BANKCLIA [id number] [address] Start: 05-27-2022 Antibody screen Marjorie Headley Comment on above: Order Comment: BLOOD BANK IS DRAWN Result Comment: PERF ORMED BY:[facility]ANCHEZCarmineGiancarloZILLAH, [place] [id number] MEDICAL DIRECTORELI FINK M.D. Start: 01-08-2022 CT of head without contrast DO Juliette [employer] Work Phone: Start: 01-08-2022 Computed tomography of abdomen and pelvis with contrast DO Juliette [employer] Work Phone: Start: 09-21-2021 Gluc bld gluc mntr dev cleared fda spec home use Myrna Mendez MD Work Phone: Start: 09-21-2021 Colon ca scrn not hi rsk ind Jose Zhong ntis HUMAN RESOURCE PROFESSIONAL.HI RANGER OPERATOR Work Phone: Start: 09-21-2021 Esophagogastroduodenoscopy transoral diagnostic Jose Orellana HUMAN RESOURCE PROFESSIONAL.HI RANGER OPERATOR Work Phone: Start: 09-21-2021 Colonoscopy Myrna Mendez MD Work Phone: Start: 06-13-2019 Radex wrist complete minimum 3 views KALLI WHITE Start: 06-13-2019 25 hydroxy includes fractions if performed KALLI WHITE Start: 06-13-2019 Hemoglobin glycosylated a1c KALLI WHITE Start: 06-13-2019 Radex wrist complete minimum 3 views Kalli White Work Phone: Start: 06-13-2019 25 hydroxy includes fractions if performed Nancy Villasenor Work Phone: Start: 06-13-2019 Hemoglobin glycosylated a1c Nancy soria Work Phone: H/O: surgery S/P exploratory laparotomy Andrew Gong MD Work Phone: H/O: surgery S/P exploratory laparotomy Andrew Gong MD Work Phone: H/O: surgery S/P exploratory laparotomy Andrew Gong MD Work Phone: H/O: surgery History of ileal conduit DO Juliette Berumen Work Phone: SARS Antigen (LFIA) DO Amauri Berumen Work Phone: Urine culture DO Juliette Schrader Work Phone: Plan of Treatment Date Care Activity Detail Author Start: 09-22-2031 Colonoscopy COLONOSCOPY [facility] Start: 09-22-2031 COLORECTAL CANCER SCREENING COLORECTAL CANCER SCREENING [facility] Start: 09-22-2031 Screening for malignant neoplasm of colon [facility] Start: 05-10-2024 BP Controlled (<130/80) BP Controlled (<130/80) [facility] Start: 09-22-2023 BP CONTROLLED (<130/80) BP CONTROLLED (<130/80) [facility] Start: 09-18-2023 Hemoglobin A1c measurement HbA1C [facility] Start: 07-10-2023 End: 02-08-2024 Ct abdomen & pelvis w/o contrst 1/> body re CT UROGRAM WO/W IVCON Radiology Routine History of bladder cancer Expected: 07/10/2023, Expires: 02/08/2024 [facility] Work Phone: Comment on above: Expected: 07/10/2023, Expires: Start: 05-02-2023 End: 06-01-2023 Ct abdomen & pelvis w/o contrst 1/> body re CT UROGRAM WO/W IVCON Radiology Routine History of bladder cancer Expected: 05/02/2023, Expires: 06/01/2023 [facility] Work Phone: Comment on above: Expected: 05/02/2023, Expires: 4 Start: 05-02-2023 End: 06-01-2023 CT CHEST W IVCON CT CHEST W IVCON Radiology Routine History of bladder cancer Expected: 05/02/2023, Expires: 06/01/2023 [facility] Work Phone: Comment on above: Expected: 05/02/2023, Expires: 4 Start: 04-16-2023 Depression Assessment Depression Assessment [facility] Start: 01-15-2023 End: 03-17-2023 CBC W Auto Differential panel - Blood CBC + DIFF Lab Routine Fungal meningitis Expected: 01/15/2023, Expires: 03/17/2023 [facility] Work Phone: Comment on above: Expected: 01/15/2023, Expires: 3 Start: 01-15-2023 End: 03-17-2023 Comprehensive metabolic 2000 panel - Serum or Plasma COMP METABOLIC PANEL Lab Routine Fungal meningitis Expected: 01/15/2023, Expires: 03/17/2023 [facility] Work Phone: Comment on above: Expected: 01/15/2023, Expires: 3 Start: 01-15-2023 End: 03-17-2023 POSACONAZOLE, SERUM POSACONAZOLE, SERUM Lab Routine Fungal meningitis Expected: 01/15/2023, Expires: 03/17/2023 [facility] Work Phone: Comment on above: Expected: 01/15/2023, Expires: 3 Start: 12-15-2022 Covid-19 Vaccine () Covid-19 Vaccine () [facility] Start: 12-15-2022 Influenza vaccination [facility] Start: 10-20-2022 Hemoglobin A1c/Hemoglobin.total in Blood HBA1C [facility] Start: 10-18-2022 End: 12-18-2022 CBC W Auto Differential panel - Blood CBC + DIFF Lab Routine Therapeutic drug monitoring Expected: 10/18/2022, Expires: 12/18/2022 [facility] Work Phone: Comment on above: Expected: 10/18/2022, Expires: 3 Start: 10-18-2022 End: 12-18-2022 Comprehensive metabolic 2000 panel - Serum or Plasma COMP METABOLIC PANEL Lab Routine Therapeutic drug monitoring Expected: 10/18/2022, Expires: 12/18/2022 [facility] Work Phone: Comment on above: Expected: 10/18/2022, Expires: 3 Start: 10-18-2022 End: 12-18-2022 POSACONAZOLE, SERUM POSACONAZOLE, SERUM Lab Routine Therapeutic drug monitoring Expected: 10/18/2022, Expires: 12/18/2022 [facility] Work Phone: Comment on above: Expected: 10/18/2022, Expires: 3 Start: 09-21-2022 Colonoscopy COLONOSCOPY [facility] Start: 09-21-2022 COLORECTAL CANCER SCREENING COLORECTAL CANCER SCREENING [facility] Start: 09-07-2022 Hemoglobin A1c/Hemoglobin.total in Blood HBA1C [facility] Start: 08-18-2022 End: 08-18-2023 Mri brain brain stem w/o w/contrast material MRI BRAIN WO/W IVCON Radiology Routine Cervicalgia Expected: 08/18/2022, Expires: 08/18/2023 [facility] Work Phone: Comment on above: Expected: 08/18/2022, Expires: 4 Start: 08-18-2022 End: 08-18-2023 Mri spinal canal thoracic w/o & w/contr matrl MRI THORACIC SPINE WO/W IVCON Radiology Routine Cervicalgia Expected: 08/18/2022, Expires: 08/18/2023 [facility] Work Phone: Comment on above: Expected: 08/18/2022, Expires: 4 Start: 08-03-2022 End: 08-19-2023 CT BRAIN WO IVCON CT BRAIN WO IVCON Radiology Routine Other hydrocephalus (HCC) Expected: 08/03/2022 (Approximate), Expires: 08/19/2023 [facility] Work Phone: Comment on above: Expected: 08/03/2022 (Approximate), Expi res: 08/19/2023 Start: 06-13-2022 DIABETES SCREEN DIABETES SCREEN [facility] Start: 06-13-2022 Pneumococcal vaccination [facility] Start: 04-16-2022 End: 03-02-2023 Ct abdomen & pelvis w/o contrst 1/> body re CT UROGRAM WO/W IVCON Radiology Routine Malignant neoplasm of urinary bladder, unspecified site (HCC) Expected: 04/16/2022, Expires: 03/02/2023 [facility] Work Phone: Comment on above: Expected: 04/16/2022, Expires: 3 Start: 04-16-2022 End: 03-02-2023 CT CHEST W IVCON CT CHEST W IVCON Radiology Routine Malignant neoplasm of urinary bladder, unspecified site (HCC) Expected: 04/16/2022, Expires: 03/02/2023 [facility] Work Phone: Comment on above: Expected: 04/16/2022, Expires: 3 Start: 04-16-2022 DEPRESSION ASSESSMENT DEPRESSION ASSESSMENT [facility] Start: 03-18-2022 3 comp foot exam completed DIABETIC FOOT EXAM [facility] Start: 03-18-2022 Diabetic foot examination Diabetic Foot Exam [facility] Start: 03-07-2022 FUV, Provider: Jose Villasenor, Status: Pen, Time: 2:00 PM FUV, Provider: Jose Villasenor, Status: Pen, Time: 2:00 PM UJ-Yrvpsorbhpcip-NW C [place] [address] Work Phone: Start: 02-19-2022 PNEUMOCOCCAL (2 - PCV) PNEUMOCOCCAL (2 - PCV) [facility] Start: 02-19-2022 Pneumococcal vaccination Pneumococcal Vaccine (2 - PCV) [facility] Start: 01-31-2022 End: 04-02-2022 Cobalamin (Vitamin B12) [Mass/volume] in Serum or Plasma VITAMIN B12 BLOOD Lab Routine Malignant neoplasm of urinary bladder, unspecified site (HCC) Expected: 01/31/2022, Expires: 04/02/2022 [facility] Work Phone: Comment on above: Expected: 01/31/2022, Expires: 2 Start: 01-31-2022 End: 04-02-2022 Comprehensive metabolic 2000 panel - Serum or Plasma COMP METABOLIC PANEL Lab Routine Malignant neoplasm of urinary bladder, unspecified site (HCC) Expected: 01/31/2022, Expires: 04/02/2022 [facility] Work Phone: Comment on above: Expected: 01/31/2022, Expires: 2 Start: 01-23-2022 FUV, Provider: Jose Villasenor, Status: Pen, Time: 11:20 AM FUV, Provider: Jose Villasenor, Status: Pen, Time: 11:20 AM ZG-Uojjprgvnvtne-SW C [place] [address] Work Phone: Start: 01-09-2022 [facility] Work Phone: Start: 01-08-2022 [facility] Work Phone: Start: 01-08-[address] [facility] Work Phone: Start: 01-08-[address] [facility] Work Phone: Start: 01-08-2022 Referral to occupational therapist [facility] Work Phone: Start: 01-08-[address] [facility] Work Phone: Start: 01-08-2022 [facility] Work Phone: Start: 12-15-2021 Influenza vaccination INFLUENZA (#1) [facility] Start: 11-08-2021 End: 01-08-2022 CREATININE BLD CREATININE BLD Lab Routine Malignant neoplasm of urinary bladder, unspecified site (HCC) Expected: 11/08/2021, Expires: 01/08/2022 [facility] Work Phone: Comment on above: Expected: 11/08/2021, Expires: Start: 10-25-2021 FUV, Provider: Jose Villasenor, Status: Pen, Time: 3:00 PM FUV, Provider: Jose Villasenor, Status: Pen, Time: 3:00 PM NW-Iypglfiongxqo-WQ C [place] [address] Work Phone: Start: 10-21-2021 COVID-19 VACCINE (5 - Booster for Moderna series) COVID-19 VACCINE (5 - Booster for Moderna series) [facility] Start: 10-21-2021 COVID-19 VACCINE (6 - Booster for Moderna series) COVID-19 VACCINE (6 - Booster for Moderna series) [facility] Start: 10-21-2021 COVID-19 VACCINE (6 - Moderna series) COVID-19 VACCINE (6 - Moderna series) [facility] Start: 07-12-2021 Hemoglobin A1c/Hemoglobin.total in Blood HBA1C [facility] Start: 07-06-2021 COVID-19 VACCINE (4 - Booster for Moderna series) COVID-19 VACCINE (4 - Booster for Moderna series) [facility] Start: 06-07-2021 FUV, Provider: Jose Villasenor, Status: Ru, Time: 1:00 PM FUV, Provider: Jose Villasenor, Status: Ru, Time: 1:00 PM KK-Ulvikxgsfb-Klqbn [address] [address] Work Phone: Start: 04-16-2021 DEPRESSION ASSESSMENT DEPRESSION ASSESSMENT [facility] Start: 12-15-2020 Influenza vaccination INFLUENZA (#1) [facility] Start: 11-09-2020 FUV, Provider: Jose Villasenor, Status: Ru, Time: 1:20 PM FUV, Provider: Jose Villasenor, Status: Pen, Time: 1:20 PM OK-Idowniacpytdd-AR C [place] [address] Work Phone: Start: 09-11-2019 A1C test (Diabetic or Prediabetic) A1C test (Diabetic or Prediabetic) [place], [place] Start: 06-13-2019 Annual Wellness Visit (AWV) Annual Wellness Visit (AWV) [place] Start: 12-15-2018 Influenza vaccination Flu vaccine (#1) [place] Start: 2016 Breast cancer screen Breast cancer screen [place], [place] Start: 2016 Colon cancer screen colonoscopy Colon cancer screen colonoscopy [place] Start: 2016 Shingles Vaccine (1 of 2) [facility]ingles Vacc[facility] ([facility] 2) [facility] [place] [place] Start: 2016 SHINGRIX VACCINE (1 of 2) SHINGRIX VACCINE (1 of 2) [facility] Start: 2011 COLOGUARD (FIT-DNA) COLOGUARD (FIT-DNA) [facility] Start: 2011 Colonoscopy COLONOSCOPY [facility] Start: 2011 COLORECTAL CANCER SCREENING COLORECTAL CANCER SCREENING [facility] Start: [address] COLONOGRAPHY [facility] Start: 2011 FECAL OCCULT BLOOD FECAL OCCULT BLOOD [facility] Start: 2011 LIPID SCREEN LIPID SCREEN [facility] Start: 2011 Screening for malignant neoplasm of colon [facility] Start: 2011 SIGMOIDOSCOPY SIGMOIDOSCOPY [facility] Start: 2006 Lipid screen Lipid screen [place], [place] Start: 2006 Mammography [facility] Start: 2006 Screening for malignant neoplasm of breast Mammogram Screening [facility] Start: 1996 HPV TESTING HPV TESTING [facility] Start: 1996 Screening for malignant neoplasm of cervix HPV Testing [facility] Start: 1987 Cervical cancer screen Cervical cancer screen [place], [place] Start: 1987 PAP TESTING PAP TESTING [facility] Start: 1987 Screening for malignant neoplasm of cervix Pap Testing [facility] Start: 1985 HEPATITIS B (1 of 3 - Risk 3-dose series) HEPATITIS B (1 of 3 - Risk 3-dose series) [facility] Start: 1985 SHINGRIX VACCINE (1 of 2) SHINGRIX VACCINE (1 of 2) [facility] Start: 1985 Urine microalbumin profile [facility] Start: 1984 ANNUAL PCP TEAM CHRONIC DISEASE VISIT ANNUAL PCP TEAM CHRONIC DISEASE VISIT [facility] Start: 1984 BP CONTROLLED (<130/80) BP CONTROLLED (<130/80) [facility] in Start: 1984 Diabetic microalbuminuria test Diabetic microalbuminuria test [place], [place] Start: 1984 Hepatitis B surface antibody level LDL CHOLESTEROL [facility] Start: 1984 HEPATITIS C SCREENING HEPATITIS C SCREENING [facility] Start: 1984 Hepatitis C screening Hepatitis C Screening [facility] Start: 1984 HIV SCREENING HIV SCREENING [facility] Start: 1984 HIV screening HIV Screening [facility] Start: 1984 SPIROMETRY SPIROMETRY [facility] Start: 1981 HIV screen HIV screen [place], [place] Start: 1978 Adult depression screening assessment DEPRESSION SCREENING [facility] Start: 1978 COVID-19 VACCINE (1) COVID-19 VACCINE (1) [facility] Start: 1977 DTaP/Tdap/Td vaccine (1 - Tdap) DTaP/Tdap/Td vaccine (1 - Tdap) [place] Start: 1976 [object Object] Diabetic foot exam [place] Start: 1976 Diabetic retinal exam Diabetic retinal exam [place], [place] Start: 1976 Glaucoma screening Dilated Retinal Exam [facility] Start: 1976 Hepatitis B screening URINE ALBUMIN:CREATININE RATIO [facility] Start: 1976 Hepatitis C antibody, confirmatory test DILATED RETINAL EXAM [facility] Start: 1976 Lipid screen Lipid screen [place] Start: 1966 HEPATITIS B (1 of 3 - 3-dose series) HEPATITIS B (1 of 3 - 3-dose series) [facility] Start: 1966 Hepatitis B Vaccine (1 of 3 - 3-dose series) Hepatitis B Vaccine (1 of 3 - 3-dose series) [facility] Bacteria identified in Blood by Culture [facility] Bacteria identified in Urine by Culture [facility] Work Phone: End: 11-10-2022 Ct abdomen & pelvis w/contrast material CT ABD/PEL W IVCON Radiology Routine History of bladder cancer Abdominal pain, unspecified abdominal location 1 Occurrences starting 10/11/2021 until 11/10/2022 [facility] Work Phone: Comment on above: 1 Occurrences starting 10/11/2021 until 11/10/2022 End: 12-30-2022 Ct abdomen & pelvis w/o contrst 1/> body re CT UROGRAM WO/W IVCON Radiology Routine Malignant neoplasm of urinary bladder, unspecified site (HCC) 1 Occurrences starting 11/30/2021 until 12/30/2022 [facility] Work Phone: Comment on above: 1 Occurrences starting 11/30/2021 until 12/30/2022 End: 09-24-2023 CT BRAIN WO IVCON CT BRAIN WO IVCON Radiology Routine Other hydrocephalus (HCC) 1 Occurrences starting 08/25/2022 until 09/24/2023 [facility] Work Phone: Comment on above: 1 Occurrences starting 08/25/2022 until 09/24/2023 End: 10-21-2023 CT BRAIN WO IVCON CT BRAIN WO IVCON Radiology Routine Other hydrocephalus (HCC) 1 Occurrences starting 09/21/2022 until 10/21/2023 [facility] Work Phone: Comment on above: 1 Occurrences starting 09/21/2022 until 10/21/2023 End: 01-13-2024 CT BRAIN WO IVCON CT BRAIN WO IVCON Radiology Routine Other hydrocephalus (HCC) 1 Occurrences starting 12/14/2022 until 01/13/2024 [facility] Work Phone: Comment on above: 1 Occurrences starting 12/14/2022 until 01/13/2024 End: 02-08-2024 CT CHEST W IVCON CT CHEST W IVCON Radiology Routine History of bladder cancer 1 Occurrences starting 01/09/2023 until 02/08/2024 [facility] Work Phone: Comment on above: 1 Occurrences starting 01/09/2023 until 02/08/2024 CYTOLOGY NON-WEB MERCHANDISER CYTOLOGY NON-GY N Lab Routine History of bladder cancer Ordered: 01/09/2023 [facility] Work Phone: Comment on above: Ordered: 01/09/2023 End: 08-23-2022 EGD DIAGNOSTIC EGD DIAGNOSTIC Endoscopy Routine Nausea and vomiting, unspecified vomiting type 1 Occurrences starting 08/23/2021 until 08/23/2022 [facility] Work Phone: Comment on above: 1 Occurrences starting 08/23/2021 until 08/23/2022 End: 09-22-2022 Gastric emptying imaging study NM GASTRIC EMPTYING SOLID Radiology Routine Early satiety Nausea 1 Occurrences starting 08/23/2021 until 09/22/2022 [facility] Work Phone: Comment on above: 1 Occurrences starting 08/23/2021 until 09/22/2022 End: 08-18-2023 Mri spinal canal cervical w/o & w/contr matrl MRI CERVICAL SPINE WO/W IVCON Radiology Routine Cervicalgia 1 Occurrences starting 07/19/2022 until 08/18/2023 [facility] Work Phone: Comment on above: 1 Occurrences starting 07/19/2022 until 08/18/2023 End: 08-23-2022 Screening colonoscopy COLONOSCOPY SCREENING Endoscopy Routine Encounter for screening for malignant neoplasm of colon 1 Occurrences starting 08/23/2021 until 08/23/2022 [facility] Work Phone: Comment on above: 1 Occurrences starting 08/23/2021 until 08/23/2022 End: 08-18-2023 Unlisted magnetic resonance procedure MRI LUMBAR SPINE PRE-OP LOCALIZATION W IVCON Radiology Routine Cervicalgia 1 Occurrences starting 07/19/2022 until 08/18/2023 [facility] Work Phone: Comment on above: 1 Occurrences starting 07/19/2022 until 08/18/2023 End: 01-13-2023 XR GI SMALL BOWEL FOLLOW-THRU XR GI SMALL BOWEL FOLLOW-THRU Radiology Routine Small bowel obstruction (HCC) 1 Occurrences starting 12/14/2021 until 01/13/2023 [facility] Work Phone: Comment on above: 1 Occurrences starting 12/14/2021 until 01/13/2023 End: 07-20-2024 XR Knee - left AP and Lateral XR KNEE LIMITED 2V AP/LAT LEFT Radiology Routine Closed nondisplaced transverse fracture of left patella, initial encounter 1 Occurrences starting 06/21/2023 until 07/20/2024 [facility] Work Phone: Comment on above: 1 Occurrences starting 06/21/2023 until 07/20/2024 End: 01-13-2023 XR UPPER GI SINGLE CONTRAST XR UPPER GI SINGLE CONTRAST Radiology Routine Small bowel obstruction (HCC) 1 Occurrences starting 12/14/2021 until 01/13/2023 [facility] Work Phone: Comment on above: 1 Occurrences starting 12/14/2021 until 01/13/2023 [facility] Immunizations Immunization Date Immunization Notes Care Provider [facility] 01-18-2023 influenza, injectabl e, quadrivalent, preservative free Juliette Berumen Other [employer] Other 01-14-2022 influenza virus vaccine, unspecified formulation Peterson Gonsalez MD Work Phone: [facility] 08-26-2021 Moderna COVID-19 Vaccine 100 MCG/0.5ML Intramuscular Suspension Jose Villasenor PA-C Work Phone: DR-Fqswihylelmey-KVA [place] [address] Work Phone: 03-08-2021 Moderna COVID-19 Vaccine 100 MCG/0.5ML Intramuscular Suspension Jose Omoregie PA-C Work Phone: GV-Laygmgcjfcqkc-PIM [place] [address] Work Phone: 02-21-2021 COVID-19 mRNA-1273 (Moderna) DO Tesaris Work Phone: [facility] 02-19-2021 pneumococcal polysaccharide vaccine, 23 valent Jose Omoregie PA-C Work Phone: [facility] 01-17-2021 influenza, seasonal, injectable Jose Omoregie PA-C Work Phone: [facility] 06-11-2020 Moderna COVID-19 Vaccine 100 MCG/0.5ML Intramuscular Suspension Jose Omoregie PA-C Work Phone: [facility] 05-14-2020 Moderna COVID-19 Vaccine 100 MCG/0.5ML Intramuscular Suspension Jose Omoregie PA-C Work Phone: FV-Ygcztudhqh-Vmebive e 2300 Work Phone: 05-10-2020 COVID-19 mRNA-1273 (Moderna) DO Juliette [employer] Work Phone: [facility] 12-26-2018 Influenza, injectabl e, Madin Daija Canine Kidney, quadrivalent with preservative Jose Omoregie PA-C Work Phone: [facility] 12-25-2017 Influenza, injectabl e, Madin Medford Canine Kidney, quadrivalent with preservative Jose Omoregie PA-C Work Phone: [facility] 04-26-2017 influenza, injectabl e, quadrivalent, preservative free Jose Omoregie PA-C Work Phone: [facility] 04-21-2016 influenza, injectabl e, quadrivalent, preservative free Jose Omoregie PA-C Work Phone: [facility] 02-25-2009 novel [id number], preservative-free, injectable Jose Villasenor JONNIE-Clemencia Work Phone: [facility] 09-28-2005 pneumococcal polysaccharide vaccine, 23 valent Jose Moralesnaveenkalin JONNIE-C Work Phone: [facility] Payers Date Payer Category Payer Medicare [id number] 2022 Medicaid [id number] 2022 Self-pay [id number] 2020 Unknown 2020 Unknown [id number] [id number]. [id number] 2018 Unknown MMO MMO SUPERMED PLUS [id number] 2018-Present PPO [id number]. [id number] 2018 Medicare HUMANA MEDICARE HUMANA CHOICE-PPO MEDICARE xxxxxxxxx 2018-Present [address] [address] [place] [address] xxxxxxxxx [id number]. [id number] 2018 Medicare [id number] 1966 Unknown [id number] 2.16.840.1.594684.3.579.2. 174 1966 Unknown [id number] 2.16.840.1.621785.3.579.2. 174 1966 Unknown [id number] 2.16.840.1.716219.3.579.2. 174 1966 Unknown [id number] 2.16.840.1.678294.3.579.2. 182 1966 Unknown [id number] 2.16.840.1.731470.3.579.2. 593 1966 Unknown [id number] 2.16.840.1.851360.3.579.2. 593 1966 Unknown [id number] 2.16.840.1.726946.3.579.2. 593 1966 Unknown [id number] 2.16.840.1.262200.3.579.2. 593 1966 Unknown [id number] 2.16.840.1.949506.3.579.2. 593 1966 Unknown [id number] 2.16.840.1.707606.3.579.2. 593 1966 Unknown [id number] 2.16.840.1.247879.3.579.2. 593 1966 Unknown [id number] 2.16.840.1.556469.3.579.2. 593 1966 Unknown [id number] 2.16.840.1.370513.3.579.2. 593 1966 Unknown [id number] 2.16.840.1.269713.3.579.2. 593 1966 Unknown [id number] 2.16.840.1.367501.3.579.2. 356 1966 Unknown [id number] 2.16.840.1.936975.3.579.2. 356 1959 Medicaid [id number] 1959 Medicare [id number] Medicare [id number] Medicare [id number] Private Health Insurance Self Pay b [id number] Unknown [id number] Unknown [id number] 2.16.840.1.210728.3.579.2. 531 Unknown [id number] 2.16.840.1.545976.3.579.2. 531 Unknown [id number] 2.16.840.1.388726.3.579.2. 531 Unknown [id number] 2.16.840.1.205848.3.579.2. 531 Social History Date Type Detail Facility Assertion Unknown if ever smoked [facility] Work Phone: Start: 1965 Sex Assigned At Not on file [place], [place] Start: 1965 Sex Assigned At Female F [facility] Start: 02-16-2021 End: 05-02-2022 Tobacco smoking status NHIS Never smoked tobacco [facility] Start: 02-16-2021 End: 05-02-2022 Tobacco use and exposure Smokeless tobacco non-user [facility] Start: 08-23-2021 End: 05-10-2023 Alcohol intake Ex-drinker (finding) [facility] Start: 02-16-2021 End: 06-16-2022 History SDOH Alcohol Frequency 1 [facility] Start: 09-11-2021 End: 01-30-2022 Exposure to SARS-CoV-2 (event) Not sure [facility] Start: 12-20-2021 End: 06-16-2022 History SDOH Transport Med 2 [facility] Start: 12-20-2021 History SDOH Housing Unable to Pay 3 [facility] Start: 06-16-2022 End: 09-21-2022 Sex Assigned At [facility] Start: 06-16-2022 History SDOH Financial 5 [facility] Start: 06-16-2022 End: 09-21-2022 History of Social function [facility] How hard is it for y ou to pay for the very basics like food, housing, medical care, and heating Not hard at all [facility] (I/We) worried sofiya er (my/our) food would run out before (I/we) got money to buy more. Never true [facility] In the past 12 month s, was there a time when you were not able to pay the mortgage or rent on time? No [facility] Medical Equipment Procedure Code Equipment Code Equipment Origin al Text Equipment Identifier Dates Accu-Chek Nadia Plus In Vitro Strip TEST 5 TIMES DAILY DIRECTED Quantity: 2 Refills: 11 Omoregie PA-C, Jose Start : 21-Mar-2019 Active 100 Strip Box Start: 03-21-2019 Accu-Chek Softcl ix Lancets TEST BLOOD GLUCOSE 5 TIMES A DAY Quantity: 1 Refills: 11 Omoregie PA-C, Jose Start : 21-Mar-2019 Active 200 Unit Box Start: 03-21-2019 Accu-Chek Nadia Plus In Vitro Strip TEST 5 TIMES DAILY DIRECTED Quantity: 2 Refills: 11 Omoregie PA-C, Jose Start : 21-Mar-2019 Active 100 Strip Box Start: 03-21-2019 Accu-Chek Softcl ix Lancets TEST BLOOD GLUCOSE 5 TIMES A DAY Quantity: 1 Refills: 11 Omoregie PA-C, Jose Start : 21-Mar-2019 Active 200 Unit Box Start: 03-21-2019 Stent Inlay Opti ma 8fr Taper Pokagon Green Polymer Phreecoat 30cm Ureteral - [id number] Start: 04-20-2021 Stent Inlay Opti ma 8fr Taper Pokagon Green Polymer Phreecoat 30cm Ureteral - [id number] Start: 04-20-2021 Stent Inlay Opti ma 7fr Taper Pokagon Green Polymer Phreecoat 24cm Ureteral - [id number] Start: 12-17-2021 Set External Drainage 35cm 1.5mm 3-15cm Catheter Inner Lumen Depth Aly - [id number] Start: 06-26-2022 Comment on above: Description: Silicon e Kit Catheter 120 cm Peritoneal Ventricular Shunt Codman Bactiseal 14cm - [id number] Start: 07-10-2022 Comment on above: Description: Silicon e Matrix-Nonmetallic [place] Holter Rickham 6mm Plastic Base 15cm Shunt Ventricular Catheter - [id number] Start: 07-10-2022 Comment on above: Description: Silicon e Programmable Shelly ve Inline Small Valve W/Siphonguard [id number] Start: 07-10-2022 Comment on above: Description: Kyleigh Certas Plus Programmable Valve 1.5/ 3T 1999 Gauss Goals Date Patient Goal Desired Activity /State Functional Status Date Assessment Result Facility NEGATED: Highlighted row Functional performance Functional status health issues are not documented Disease RR-Sivktmpynxwig-Wb [facility] Work Phone: Mental Status Date Assessment Result Facility NEGATED: Highlighted row Cognitive function [Interpretation] Cognitive status health issues are not documented Disease LR-Hzorjiiaojcrd-Zq [facility] Work Phone: Clinical Notes 06-13-2019 to 06-21-2023 Addendum Note - Aashish Monge PA-C - 06/21/2023 4:23 PM Aashish Murillo PA-C - 06/21/2023 4:03 PM Cinthia Gaviria - 06/20/2023 9:00 AM EST Note Date & Type Note Facility 06-21-2023 Note HNO ID: [id number] Author: AASHISH MONGE PA-C Service: ? Author Type: Physician Licensed Professional Counselor Type: Progress Notes Filed: 06/21/2023 16:14 Note Text: [facility] Established Visit - VIRTUAL VISIT This is a virtual visit using Audio only. It required patient-provider interaction for the medical decision making as documented below. Date of Injury: 04/11/2023 Injury: Left patella fracture History: Patient is now 7 weeks out from the above injury. She is doing well. States that she is not having a ton of pain to the left knee. She is going to PT and feels she is progressing well. She does still feel her knee is unstable at times. She is using a walker for ambulation. 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 She endorses a asleep feeling to the front of her left leg from her abdomen to her toes that she states has been there since she had a lesion removed from her spine otherwise denies numbness or tingling. Physical Exam: Not conducted due to telephone visit Imaging I personally reviewed X-Rays and discussed with patient: with maintained alignment no interval displacement, fracture line still visible but appears to be healing compared to previous imaging Assessment and Plan: Patient is a 58 year old female 7 weeks s/p Closed treatment of left patella fracture -Patient is progressing appropriately -Plan to continue closed, nonoperative treatment -Recommended Tylenol for pain control -Continue working with PT, new script to be faxed to facility, patient to message with fax number -Ok to work on ROMAT with HKB unlocked -Discussed with patient she can start to wean out of the HKB over the next few weeks but if she feels more stable can continue to wear unlocked -Weightbearing: Weight bearing as tolerated and Strengthening as tolerated -Follow up: 6-8 weeks with x-rays Aashish Monge PA-C 10 minutes were spent on this encounter [facility] 06-21-2023 Miscellaneous Notes Addended by: AASHISH MONGE on: 06/21/2023 04:23 PM Modules accepted: Orders documented in this encounter [facility] 06-21-2023 History of Presen t illness Narrative [facility] Established Visit - VIRTUAL VISIT This is a virtual visit using Audio only. It required patient-provider interaction for the medical decision making as documented below. Date of Injury: 04/11/2023 Injury: Left patella fracture History: Patient is now 7 weeks out from the above injury. She is doing well. States that she is not having a ton of pain to the left knee. She is going to PT and feels she is progressing well. She does still feel her knee is unstable at times. She is using a walker for ambulation. 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 She endorses a asleep feeling to the front of her left leg from her abdomen to her toes that she states has been there since she had a lesion removed from her spine otherwise denies numbness or tingling. Physical Exam: Not conducted due to telephone visit Imaging I personally reviewed X-Rays and discussed with patient: with maintained alignment no interval displacement, fracture line still visible but appears to be healing compared to previous imaging Assessment and Plan: Patient is a 58 year old female 7 weeks s/p Closed treatment of left patella fracture -Patient is progressing appropriately -Plan to continue closed, nonoperative treatment -Recommended Tylenol for pain control -Continue working with PT, new script to be faxed to facility, patient to message with fax number -Ok to work on ROMAT with HKB unlocked -Discussed with patient she can start to wean out of the HKB over the next few weeks but if she feels more stable can continue to wear unlocked -Weightbearing: Weight bearing as tolerated and Strengthening as tolerated -Follow up: 6-8 weeks with x-rays Aashish Monge PA-C 10 minutes were spent on this encounter documented in this encounter [facility] 06-20-2023 Note [facility] 06-20-2023 History of Presen t illness Narrative POPULATION HEALTH NAVIGATION OUTREACH Action/FYI RP Patient Outreach: Spoke with patient to schedule in Therapy. Patient declined RST Consult at this time. Reason for Outreach Care Gap/HCC or Scheduling Wellness Visits Care Gaps due: Follow-up Appointment Patient Contacted: Spoke to patient/parent/or legal guardian Patient identified by name and : Yes Care Gap/HCC/Scheduling Wellness actions taken: Patient declined: Not interested in scheduling Navigation Signature: Cinthia Ramirez June 20, 2023 9:00 AM documented in this encounter [facility] 06-18-2023 Note [facility] 06-18-2023 Note [facility] 06-18-2023 Note [facility] 05-28-2023 Evaluation note Encounter Date Diagnosis Assessment Notes May, Nausea and vomiting in adult (ICD-10 - R11.2) Instructed on diet - bland diet - sips of water every 10min - small, frequent meals If pain increases, vomiting persists despite Zofran would recommend ER visit for IV fluids and lab/imaging procedures. May, Generalized abdominal pain (ICD-10 - R10.84) Nontender w/o bloating, guarding or rebound tenderness. Appears in no distress Diet instructions reviewed No XR necessary wo peritoneal symptoms May, Mild dehydration (ICD-10 - E86.0) Push fluids, but suggest sips of water every 10 minutes. Use Zofran every 6 hours as needed May, Type 1 diabetes mellitus with hyperglycemia (ICD-10 - E10.65) Increased risk of hyperglycemia and DKA. She is monitoring her BS w/ CGM and treatment w/ pump. She is very proficient in controlling her diabetes She has no s/s of DKA or intercurrent infection ER if unable to control BS or hydrate daPulse Other 01-25-2024 NoteHNO ID: [id number] Author: AASHISH MONGE PA-C Service: ? Author Type: Physician Licensed Professional Counselor Type: Progress Notes Filed: 05/10/2023 16:43 Note Text: Orthopa[facility] Surgery Clinic Established Visit Date of Injury: 04/11/2023 Injury: Closed treatment of left patella fracture History: Patient presents to clinic 4 weeks from the above injury. She is doing well today. She has been WBAT with hinged knee brace locked in extension. She has been using a walker to ambulate. States her pain is controlled and she denies numbness or tingling. Physical Exam: There were no vitals filed for this visit. General: No acute distress, alert and oriented x3 and Awake and alert Left Lower Extremity: Skin:Closed without ulcerations, lacerations, rashes or abrasions and Minimal swelling with wrinkles present Vascular: Foot warm and well perfused with brisk capillary refill and Palpable DP/PT pulse Neuro: Sensation intact in saphenous/sural/deep peroneal/superficial peroneal/tibial nerve distribution Musculoskeletal: Tenderness to palpation over Fracture Imaging: I personally reviewed xrays and discussed with patient: Demonstrate maintained alignment no interval displacement, fracture line still visible Assessment and Plan: Patient is a 57 year old female 4 weeks s/p closed patella fracture -Patient is progressing appropriately -Plan to continue closed, nonoperative treatment -Recommended Tylenol for pain control -Can begin to unlock hinged knee brace 0-40 to work on ROM of knee -Continue WBAT with brace locked in extension -Starting in 3 weeks can unlock brace for ROMAT -Weightbearing: Weight bearing as tolerated -Follow up: 4-6 weeks with x-rays [facility] NoteHNO ID: [id number] Author: AASHISH MONGE PA-C Service: ? Author Type: Physician Licensed Professional Counselor Type: Progress Notes Filed: 05/10/2023 16:43 Note Text: [facility]01-25-2024 NoteHNO ID: [id number] Author: MAURILIO MEANS RT(R) Service: Radiology Author Type: Technologist Type: Progress Notes Filed: 05/10/2023 15:42 Note Text: Radiology Service Progress Note PATIENT NAME: Chikis Tobar DATE OF SERVICE: May 10, 2023 TIME: 3:41 PM PATIENT IDENTITY VERIFICATION COMPLETED USING TWO (2) IDENTIFIERS: Name and Date of confirmed by patient verbally. FALL SCREENING: Has the patient had 2 falls in the last year or 1 fall with injury or currently using an Ambulatory Assistive Device (Walker, Cane, Wheelchair, Crutches, etc.)? No PATIENT GENDER DATA: Female. status: : No status: NO. PATIENT RELEVANT IMPLANT DATA REVIEWED: Not Applicable PATIENT PRESENTS WITH AN IMPLANTABLE OR ATTACHED MIRROR FRAMER: No RADIOLOGY DEPARTMENT: General X-ray: Exam(s) Completed: Lower Extremity X-Ray(s): Knee, AP / LAT Left PERIPHERAL IV DATA: Not applicable SIGNED BY: RT April(R) May 10, 2023 3:41 [facility]01-25-2024 [facility]01-24-2024 [facility]01-10-2024 Evaluation note* Encounter Date Diagnosis Assessment Notes Treatment Notes Treatment Clinical Notes Apr, Closed nondisplaced transverse fracture of left patella with routine healing, subsequent encounter (ICD-10 - S82.035D) Continue wearing straight leg splint. WBAT w/ use of walker for stability. Fall precautions f/u Orthopedics - plan is conservative treatment Apr, Claustrophobia (ICD-10 - F40.240) Ativan for MRI procedure Instructed to take one an hour prior to the procedure and repeat at time of procedure if needed. Apr, Primary hypertension (ICD-10 - I10) This patient is instructed to consume a healthy, low-fat, low-salt diet. They are also encouraged to continue exercise to achieve/maintain a normal BMI. Added Lisinopril daPulse Other 01-02-2024 NoteHNO ID: [id number] Author: Aashish Monge PA-C Service: ? Author Type: Physician Licensed Professional Counselor Type: Progress Notes Filed: 04/17/2023 10:53 AM Note Text: ORTHOPAEDIC SURGERY CLINIC NOTE NEW PATIENT VISIT Name: Chikis Tobar April 17, 2023 This patient is being seen as a new patient. CHIEF COMPLAINT: Left knee pain Date of injury: 04/11/23 HISTORY OF PRESENT ILLNESS: Chikis Tobar is a 57 year old female who presents with left knee pain after a fall directly onto her left knee. 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 She has been going to PT and working on leg strength, her right leg is weaker than her left. She was down to using a cane for ambulation but since her fall she has gone back to using a walker. She was seen and evaluated in the ED at [place] where she was found to have a left transverse patella fracture. She has been weight bearing as tolerated in a knee immobilizer since the fall. Denies numbness or tingling. Social History: Tobacco Use: Never PATIENT HISTORIES: PAST MEDICAL HISTORY Diagnosis Date Asthma 02/16/2021 Bladder cancer (HCC) 02/2021 urothelial carcinoma Diabetes mellitus type 1 (HCC) 04/13/2021 diagnosed at age 6 HTN (hypertension) 02/16/2021 Neoplasm of bladder 02/16/2021 Obesity 02/16/2021 Palpitations 02/16/2021 PAST SURGICAL HISTORY Procedure Laterality Date CYSTECTOMY W/BI PELVIC LYMPHADENECTOMY 04/2021 CYSTO.PANENDO 05/25/2021 EXPLORATORY OF ABDOMEN 12/17/2021 Reduction of small-bowel volvulus PAST SURGICAL HISTORY OF right ovary removed PAST SURGICAL HISTORY OF ORIF right ankle PAST SURGICAL HISTORY OF 02/18/2021 TURBT REMOVAL OF BLADDER AND NODES VAGINAL HYSTERECTOMY metoprolol succinate ER (TOPROL XL) 100 mg Take 1 tablet by mouth every 12 hours 6am/6pm. posaconazole DR (NOXAFIL) 100 mg tablet Take 3 tablets by mouth once daily. insulin lispro (HUMALOG U-100 INSULIN) 100 unit/mL injection Inject 0-5 units subcutaneously at bedtime. <110 Give 0 units 111-150 Give 0 units 151-200 Give 1 unit 201-250 Give 2 units 251-300 Give 3 units 301-350 Give 4 units 351-400 Give 5 units >400 give 5units and notify provider. glucagon (BAQSIMI) 3 mg/actuation nasal spray Use 1 [place] in the nose as needed. acetaminophen (TYLENOL) 325 mg tablet Take 2 tablets by mouth every 6 hours as needed for pain. fexofenadine (ALESSIO) 180 mg tablet Take by mouth. PRN posaconazole DR (NOXAFIL) 100 mg tablet Posaconazole (Noxafil) 300 mg Susp,Delayed Release For Recon Active 300 MG PO Daily August 08, 2022 12:00am (Patient not taking: Reported on 04/17/2023) pantoprazole DR (PROTONIX) 40 mg tablet Take 1 tablet by mouth DAILY (6 AM). calcium carbonate (TUMS) 500 mg chew Take 1 tablet by mouth three times daily as needed. L.acid-L.casei-B.bif-B.mary beth-FOS (PROBIOTIC BLEND) 2 billion cell-50 mg cap Take 1 capsule by mouth once daily. (Patient not taking: Reported on 04/17/2023) ferrous sulfate 325 mg (65 mg iron) tablet Take 1 tablet by mouth every other day. (Patient not taking: Reported on 04/17/2023) [DISCONTINUED] lactobacillus rhamnosus (CULTURELLE) 10 billion cell capsule Take 1 capsule by mouth once daily. Allergies: ALLERGIES Allergen Reactions Demeral [Meperidine] GI Upset Nausea, pt states room spins Flexeril [Cyclobenz* Hives Versed [Midazolam] Mental Status Change Allergies, medications, past surgical history and past medical history were reviewed per this encounter. Patient reports no change in past medical AND surgical history, medications, allergies, social history, family history. I have confirmed and edited as necessary, the PFSH and ROS obtained by others. PHYSICAL EXAM: There were no vitals filed for this visit. General Appearance: Appears healthy, well-nourished Respiratory: Non-labored breathing Left Lower Extremity: Skin: Closed without ulcerations, lacerations, rashes or abrasions and Swelling minimal with wrinkles present Vascular: Foot warm with brisk warm capillary refill and Palpable DP/PT pulse Neuro: Sensation intact in saphenous/sural/deep peroneal/superficial peroneal/tibial nerve distribution Musculoskeletal: Tenderness to palpation over Knee and Ankle and range of motion deferred to knee, Able to SLR and hold leg in extension. Palpable effusion to knee Images: I have personally reviewed the images obtained left knee and discussed with patient, demonstrating left transverse patella fracture Xrays on disc that was uploaded into [facility] Assessment and Plan: 57 year old female with Left transverse patella fracture - Plan to treat this injury with Nonoperative treatment -Patient able to SLR will continue with non op treatment at this time -Hinged knee brace fitted for patient today -Ok to be weight bearing as tolerated with brace locked in extension (more content not included)...[id number] History of Present illness Narrative* Jamie Guardado MD - 03/19/2023 1:00 PM EST Images from the original note were not included. INFECTIOUS DISEASES OUTPATIENT FOLLOW-UP NOTE SERVICE DATE: March 19, 2023 Last visit: 01/15/2023 INTERVAL HPI : HPI: 57 year old female with medical history of urothelial carcinoma with micropapillary differentiation s/p radical cystectomy and ileal conduit (04/2021, never received BCG), HTN, DM1, chronic sinusitis, and asthma with recent admission for new hydrocephalus and enhancement of the anterior sabra, medulla, and spine from C7-T3 and L1-S2. April 2022 admitted for encephalopathy, found to have DKA and was discharged to SNF. May 27 2022, the patient was found unresponsive. CPR was performed and she was transferred to [facility]. She was found to have DKA. A CT head showed hydrocephalus with MRI on May 29 showing multiple enhancement in the anterior sabra, medulla, and in the spine at the level of C7-T3 and L1-S2. Multiple taps were performed and were unsuccessful. A TYPEWRITER TESTER shunt was placed and patient underwent a meningeal biopsy which pathology showed hyphae elements. PCR sentover multiple tissue samples and CSF next gen sequencing was negative and was negative. She was started on posaconazole to cover molds. While taylor can present with pseudohyphae, it did not grow, which concerns for other molds rather than yeast CT 08/16/2022 Relative normalization of ventricular caliber with resolved asymmetric slit like appearance of the right lateral ventricle with shunt in place since 08/16/2022. Small subdural hygromas over the frontal lobes (8 mm). LFTs 08/16 normal . TYPEWRITER TESTER shunt was adjusted from 4 to 7 Posaconazole level 2.4 on 08/21/22 Developed a facial rash in September 2022, mainly the malar area, a few spots on the forehead. 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 She was seeing wound care at [facility] for her sacral area ulcer. Rx'd with medical honey gel and silicone bordered foam bandage. Healed over several months At her ID clinic visit 10/18/22 she was doing very well. The rash had improved over malar region witha few papules on forehead. Appeared c/w rosacea, with patchy erythema and papules over cheeks. Did not appear to be from the posaconazole. Neurologically she was intact except for some areas of sensory deficit lateral thighs and upper thoracic area, and some imbalance on Romberg testing. CTH 11/15/22 done to FU on hygromas, showed VPS in place, ventricular size stable, slight decrease insmal bifrontal convexity subdural hygromas. Posaconazole 3.4 Saw Neurosurgery 12/14. She was thought to be doing well neurologically, and CT scan was stable. No changes in shunt settings. Plan was for follow-up with neurosurgery in 4-[address] urogram and CT scan of the chest 12/25/2022 per urology: CTU 12/25/2022 - New trace pelvic ascites. 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 Otherwise no evidence of intra- abdominal/pelvic metastases. CT Chest 12/25/2022 -Interval resolution of the previously noted centrilobular groundglass opacities. New patchy and streaky scarring/discoid atelectasis in the left lower lobe She was seen by urology 01/09/2023 in follow-up for her urothelial carcinoma with micropapillary differentiation. She has had a complex urinary history preceding this fungal infection, s/p RARC, eBPLND, 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 History of volvulus s/p ex lap, reduction of volvulus. 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 Has gained wt. Urology felt her urothelial CA was CHRISTINE on surveillance imaging, urine cytology. Continue surveillance imaging q 6 months. Hawkins remains in place. ID clinic 01/15/23, doing fairly well overall, tolerating posaconazole. Strength improving and ambulatory, using a cane PRN. No TYPEWRITER TESTER shunt issues. Balance has improved but still needs to work on it. Area of persistent numbness in the upper thoracic region which has not changed much, along with some areas of numbness on the lateral thighs, which has been present all along. Facial rash better, being treated as rosacea by PCP. Glucose well controlled. Plan 1 year of antifungals and then reassess withimaging. Currently: Patient returns as requested. About a week ago she had an episode where she had a partial fall. Shewas going to a door in her house and her left foot got caught and she hit her right side of the head against the door. She did not fall to the ground and was able to catch herself, but it did hurt onthe right side of her forehead for about 20 minutes and then resolved. She was concerned that she may have disrupted her TYPEWRITER TESTER shunt. She had no specific pain over the shunt or redness. She called a friend of hers who is a neurology nurse who checked her over and thought that she was doing fine. Patient was anxious about this and had trouble sleeping that night but did not develop any type of headache and no other neurologic symptoms over the past week. In the past 2 months or so she has had problems with bilateral shoulder pain, left greater than right. She has not had any specific trauma in either arm. First noticed this when she was having difficulty putting on her brassiere. She had been going to physical therapy for balance and gait training and had mentioned her shoulder problems. The therapist evaluated her and thought this was from a rotator cuff problem. She was seen by her PCP who felt this was also a rotator cuff problem and prescribed additional PT specifically for the shoulders. She has been going 2-3 times per week where she receives range of motion exercises, cupping, but has not had ultrasound or heat. Has had some partial improvement but the left shoulder is still very limited in abduction, forward flexion, rotation internal or external. It is both stiff and painful over certain arcs of motion. She has 20 sessions of shoulder PT and will be done at the end of next week. Has not had any shoulder x-rays. Does not feel that her balance or gait has changed much. There has not been a significant worseningthat led up to her partial fall. She still uses a simple cane to get around, but her therapist saidthat she had progressed and may at some point forget to use her cane, which she says has happened afew times. She still is careful with her walking and standing since she knows she is unsteady but has been practicing and does feel she has had some improvement. She has been frustrated by the courseof her debility, and says that she is impatient to get back to baseline. She does realize that she has made significant strides in the right direction. She feels that there is numbness around both the knee areas in particular but also the thighs. Thisis not painful and she can still feel in the thigh regions as well as around both knees but it is definitely less than other areas. There is also an area of partial numbness on the upper back around the area of the incision that is similar; she can feel everything when touched there but the sensation is less than other areas of the back. Her shoulder problems are definitely different from this area of chronic numbness in the back. Her blood sugars have been usually less than 200. Occasionally she has had a spike in sugars [id number] but generally has been well controlled using her insulin pump. She will be seeing endocrinologylater this week. States that she has not had a hemoglobin A1c drawn and will do so today. She has had no vision problems. Goes to the purification supervisor every 3 months and has an appointment coming up this week. She says that he has advised 6 months for visits but she was concerned about this and has been going every 3 months without any symptoms. Otherwise she is tolerating the posaconazole very well without any noticeable side effects. She asked about the COVID vaccine. Her PCP had wanted her to get the COVID vaccine but she was concerned that it may have led to the fungal meningitis. We discussed this at length. I told her that COVID infection has been associated with various fungal infections including mold, but this is the infection and not the vaccine. In her case I did not think that the COVID she had around that time was related to her fungal meningitis, and was much more likely to be from her diabetes. She also had no chemotherapy around that time. She has been pushing herself to become more active. Her weight has also been stable around 130 pounds. Prior to her cancer diagnosis and fungal meningitis she weighed around 195 pounds and at one point was down to 105 pounds. She has recently been stable for several months now in the 130 pound range. MEDICATIONS: Current Outpatient Medications Medication Sig metoprolol succinate ER (TOPROL XL) 100 mg Take 1 tablet by mouth every 12 hours 6am/6pm. posaconazole DR (NOXAFIL) 100 mg tablet Take 3 tablets by mouth once daily. pantoprazole DR (PROTONIX) 40 mg tablet Take 1 tablet by mouth DAILY (6 AM). calcium carbonate (TUMS) 500 mg chew Take 1 tablet by mouth three times daily as needed. insulin lispro (HUMALOG U-100 INSULIN) 100 unit/mL injection Inject 0-8 units subcutaneously 3 times daily before meals. Patient to carb count 1 unit per 9 g of carbs insulin lispro (HUMALOG U-100 INSULIN) 100 unit/mL injection Inject 0-10 units subcutaneously 3 times daily before meals. Supplemental Sliding Scale: Humalog Program #2 AC If Blood Glucose (mg/dL) is <110 Give 0 units 111-150 Give 0 units 151-200 Give 2 unit 201-250 Give 4 units 251-300 Give 6 units 301-350 Give 8 units 351-400 Give 10 units >400 give 10units and notify provider. insulin lispro (HUMALOG U-100 INSULIN) 100 unit/mL injection Inject 0-5 units subcutaneously at bedtime. <110 Give 0 units 111-150 Give 0 units 151-200 Give 1 unit 201-250 Give 2 units 251-300 Give 3 units 301-350 Give 4 units 351-400 Give 5 units >400 give 5units and notify provider. glucagon (BAQSIMI) 3 mg/actuation nasal spray Use 1 [place] in the nose as needed. acetaminophen (TYLENOL) 325 mg tablet Take 2 tablets by mouth every 6 hours as needed for pain. L.acid-L.casei-B.bif-B.mary beth-FOS (PROBIOTIC BLEND) 2 billion cell-50 mg cap Take 1 capsule by mouth once daily. fexofenadine (ALESSIO) 180 mg tablet Take by mouth. PRN ferrous sulfate 325 mg (65 mg iron) tablet Take 1 tablet by mouth every other day. No current facility-administered medications for this visit. PHYSICAL EXAM BP 177/63 Pulse 69 Temp 36.7 C (98 F) (Temporal) Resp 18 Wt 62.6 kg (138 lb) SpO2 98% BMI 22.27 kg/m PSYCHIATRIC: looks well, ambulatory on her own. Oriented x 3, appropriate affect, SKIN: patchy brawny erythema on cheeks with some pink papules c/w rosacea, improved H: no lesions. TYPEWRITER TESTER shunt palpable along its track and nontender EYES: PERRL EOMI no scleral icterus, no conjunctivitis ENT: no oral lesions NECK: no meningismus RESPIRATORY: symmetrical chest expansion and respiratory effort, clear to auscultation CARDIOVASCULAR: S1, S2, no murmurs, no gallops, no rubs, no edema ABDOMINAL: soft, non-distended, non-tender. Ileal conduit stoma in place, pink and no [arastomal hernia Hawkins with clear urine MUSCULOSKELETAL: no joint effusions or swelling. Limited ROM left shoulder to both AROM and PROM. No warmth or erythema about the shoulders EXTREMITIES: Within normal limits NEUROLOGICAL: alert, oriented, speech appropriate CRANIAL NERVES: Pupils: OD Right: 3 mm Reactive OS Left: 3 mm Reactive II Visual taylor: are full to confrontation III, IV, EOM full V Facial sensation normal to light touch VII Normal strength VIII Normal bilaterally to finger rub IX, X Normal, midline palatal rise XI Symmetric shrug, and head rotation XII Tongue midline, mobile Motor: UE BICEPS TRICEPS DELTS Wrist Ext Wrist Flex Arabic Professor R 5/5 5/5 5/5 5/5 5/5 5/5 L 5/5 5/5 5/5 5/5 5/5 5/5 LE Hip Flex Knee Flex Knee Extend Plantarflex Dorsiflex EHL R 5/5 5/5 5/5 5/5 5/5 5/5 L 5/5 5/5 5/5 5/5 5/5 5/5 Pronator drift: no pronator drift bilaterally Sensory: light touch: decreased in high thoracic area on back (but able to perceive LT) Lateral thighs also with decreased LT (but able to correctly perceive) Reflexes: RIGHT LEFT Brachioradialis 2+ 2+ Biceps 2+ 2+ Triceps 2+ 2+ Knee 2+ 2+ Achilles 1+ 1+ Long Tract Signs: No clonus, Babinski, or Hoffmans. Muscle tone: Normal No fasciculations or tremors noted. Cerebellar: Finger nose finger: normal Fine finger movements were normal. Foot tapping was normal bilaterally Romberg: + swaying with eyes open Gait: tandem gait not tested for safety concerns LABORATORIES Latest Reference Range & Units 08/21/22 15:09 11/15/22 09:58 02/20/23 10:03 Posaconazole, Serum 0.7 - 3.9 ug/mL 2.4 3.4 3.1 Latest Reference Range & Units 02/20/23 10:03 Sodium 136 - 144 mmol/L 140 Potassium 3.7 - 5.1 mmol/L 3.9 Chloride 97 - 105 mmol/L 104 CO2 22 - 30 mmol/L 27 BUN 7 - 21 mg/dL 16 Creatinine 0.58 - 0.96 mg/dL 0.61 Glucose 74 - 99 mg/dL 209 (H) Protein, Total 6.3 - 8.0 g/dL 6.8 Calcium 8.5 - 10.2 mg/dL 9.4 Albumin 3.9 - 4.9 g/dL 4.5 Bilirubin, Total 0.2 - 1.3 mg/dL 0.5 Alkaline Phosphatase 34 - 123 U/L 99 ALT 7 - 38 U/L 17 AST 13 - 35 U/L 14 Anion Gap 9 - 18 mmol/L 9 eGFR >=60 mL/min/1.73m 105 (H): Data is abnormally high MICROBIOLOGY: 07/19/22 COVID PCR neg 07/08/22 CSF cryptococcal antigen negative, fungal culture negative 07/02 CSF culture 07/02 NG Landenberg fungal PCR PCR from biopsy tissue both negative ([facility]) 06/28 CSF (labelled lumbar puncture but is from EVD): MNGS negative 06/27 CSF (labelled lumbar puncture but is from EVD): No growth, Crypto antigen negative 06/26 OR cultures Dural/subdural itradural thoracic lesion Tissue: gram stain negative. NGTD Wound culture: gram stain negative. NGTD AFB smear no organsims. Fungal: smear: no fungus seen Landenberg bacterial, fungal and AFB PCRs: negative (entire block submitted for fungal PCR) Other tests: Fungitell 06/30/22 negative Aspergillus/Galactomannan negative Histoplasma urinary antigen 06/21 negative Q fever titers 06/21: negative TB screen negative 06/18 Lyme negative 06/18 Fungal battery negative S/p Cisternal tap 06/16/22 49% neut, 51% lymph, glucose 162, protein 30 Cytology negative HSV CSF PCR negative CNSide panel negative for tumor cells Lyme IgG/IgM negative TB screen negative C diff neg Pathology 06/26/22: A. Intradural thoracic region, excision: - Peripheral nerve and adjacent soft tissue with focal chronic inflammation and fibrosis. - Negative for neoplasm. B. Dura, site not further specified, excision: - Focal necrosis with chronic inflammation and fibrosis. - Negative for neoplasm. Addendum Gram, GMS, and AFB stains were performed on block B1. Rare fungal hyphae are noted on the GMS stained section. Additional organisms are not noted on the AFB or gram stain sections Gram, GMS, and AFB stains were performed on block B1. Rare fungal hyphae are noted on the GMS stained section. Additional organisms are not noted on the AFB or gram stain sections. Gram, GMS, and AFB stains were performed on block B1. Rare fungal hyphae are noted on the GMS stained section. Additional organisms are not noted on the AFB or gram stain sections. ASSESSMENT: 57 year old woman with history of: - HTN, T1DM, esophagitis, chronic sinusitis, asthma - Urothelial carcinoma with micropapillary differentiation s/p radical cystectomy and ileal conduitwithout BCG therapy 04/2021 c/b post op failure to thrive - 12/2021 SBO s/p ex lap with reduction of volvulus and right ureteral reimplantation into ileal conduit, right ureteral stent placement. 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 T4-9 intramedullary hyperintensity suggesting cord edema due to compression superiorly - Course complicated by unsuccessful LP attempts at [facility] then transferred to [facility] - s/p cisternal tap 06/16/22 with limited volume: TNC 1, 49% pmn, 51% lymphocytes, glucose 162, protein 30. Cultures, cytology, HSV PCR, and CSF biocept Cnside panel negative for malignancy - 06/22/22 MRI brain and spine with worsening hydrocephalus but limited due to intolerance - 06/26 s/p T5 intradural biopsy with placement of EVD. Findings in OR with thickened dura, necroticfluid. Pathology with fungal hyphae confirmed on multiple sections. Landenberg PCR and cultures all negative, including the tissue block in its entirety sent for universal fungal PCR and negative - CSF 06/28/22 negative on Next Gen sequencing - posaconazole started 06/29/22 - s/p TYPEWRITER TESTER shunt on 07/10.and improving MS since then. - small subdural hygromas over frontal convexities on CT 08/16/22, shunt settings adjusted - facial rash in September 2022, mainly the malar area, a few spots on the forehead. Dx'd with rosacea by PCP and started on metronidazole gel, improved - sacral area ulcer, saw wound care at [facility]. Rx'd with medical honey gel and silicone borderedfoam bandage. Healed over several months - CTH 11/15/22 done to FU on hygromas, showed VPS in place, ventricular size stable, slight decrease in smal bifrontal convexity subdural hygromas. Saw Neurosurgery 12/14/22. She was thought to be doingwell neurologically, and CT scan was stable. - CT urogram and CT scan of the chest 12/25/2022 per urology: CTU 12/25/2022 - New trace pelvic ascites. 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 Otherwise no evidence of intra- abdominal/pelvic metastases. CT Chest 12/25/2022 -Interval resolution of the previously noted centrilobular groundglass opacities. New patchy and streaky scarring/discoid atelectasis in the left lower lobe - bilateral shoulder pain, L worse than R, dx'd apparently with rotator cuff problems. - persistent sensory abnormalities in upper back, patchy sensory loss in thighs - near fall 03/2023 She continues on empiric oral posaconazole about 9 months now (start 06/29/22) and is stable. Seems to have reach a plateau with her neuro recovery, with stable balance problems and various areas of sensory loss. Neuro exam shows abnormal Romberg (unable to stand feet together with eyes OPEN), balance deficits, some decreased sensation upper back region (around T5) and patchy areas both anterolateral thighs. MS is at baseline. She is ambulatory with a cane, improving wt, and overall motor strength. Had a near fall in past week without direct head trauma, probably due in part to chronic balanceproblems. Will schedule for MRI of brain and spine. Last MRI brain 07/07/22 (postop) showed FLAIR hyperintensity of trigeminal nerves, facial, and vestibulocochlear, and glossopharyngeal and vagal nerves (no significant contrast enhancement of cranial nerves though). MRI of cord 07/07/22 showed extensive leptomeningeal enhancement throughout the entire spinal canal and extending into the brainstem and basilar cisterns. with neurosurgery FU same day, in April 2023. NS will need to evaluate shunt settings after MRI. Risk factors for fungal meningitis/leptomeningeal disease only include diabetes. Given the extent of the leptomeningeal disease around spine and cauda equina, plan is for at least one year of posaconazole. PLAN: - Continue posaconazole 300 mg daily for at least a year - Will check CBC, CMP, posaconazole trough level, CRP, WSR - HgA1C (pt request) - Will plan on MRI brain and spine Apr 2023, to help decide length of therapy of posaconazole - offered Orthopedics consult for bilateral shoulder pain, presumed rotator cuff; she will let me know - FU 6 weeks Jamie Guardado MD March 19, 2023 I spent a total of 65 minutes on the date of the service which included preparing to see the patient, [id number] patient care, completing clinical documentation, obtaining and/or reviewing separately obtained history, performing a medically appropriate examination, counseling and educating the pat ient/family/caregiver, ordering medications, tests, or procedures, communicating with other HCPs (not separately reported), independently interpreting results (not separately reported), communicatingresults to the patient/family/caregiver, and care coordination (not separately reported) documented in [facility]Ad[facility] History general Narrative - Reported* Type Description Date Medical History DM 1 Medical History OBESITY Medical History ASTHMA Medical History Left Patella Fx 03/2023 Surgical History ORIF R ANKLE FRACTURE 2000 Surgical History RIGHT OOPHERECTOMY FOR CYST Surgical History T5 intradural bx and placement of EVD 06/2022 Surgical History TYPEWRITER TESTER shunt placement Hospitalization History FOR SURGERIES [facility] Other 11-17-2023 Evaluation note* Encounter Date Diagnosis Assessment Notes Treatment Notes Treatment Clinical Notes Feb, Acute non-recurrent maxillary sinusitis (ICD-10 - J01.00) Will tx tody for bacterial sinusitis based on physical exam and duration of symptoms. Take antibiotic as prescribed, complete entire course of therapy even if symptoms resolve. Supportive care as directed, push fluids and rest, Tylenol/Motrin as directed for aches/fever, warm moist compress over sinuses several times a day, cool mist humidifier, nasal saline spray as directed. Symptoms should improve in the next 3 days, if symptoms persist follow up with PCP. Immediate eval for warning s/sx as discussed. Patient verbalizes understanding and is agreeable to treatment plan. Feb, Laryngitis (ICD-10 - J04.0) Symptoms of laryngitis are most often caused by viruses. Salt water gargles may help with discomfort. TFollow up if symptoms persist or worsen. Patient verbalized understanding and agreement with treatment plan. [facility] Other 10-05-2023 Evaluation note* Encounter Date Diagnosis Assessment Notes Treatment Notes Treatment Clinical Notes Jan, Type 1 diabetes mellitus with ketoacidosis without coma (ICD-10 - E10.10) This patient is following a comprehensive diabetic treatment plan. They are checking their feet daily for calluses and nonhealing ulcers. They are being seen for yearly dilated eye examinations. Goals: SBP less than 130, LDL less than 100, FBS less than 140, A1C less than 7%. They are checking their BS daily, will which are reviewed at the office visit. Continue regular routine monitoring of A1C,] Microalbumin, Dilated eye exam and Foot exam Jan, Medicare annual wellness visit, subsequent (ICD-10 - Z00.00) Personalized health advice was given to the beneficiary including a written plan for screenings discussed and provided. Advanced care planning reviewed and/or information given as requested. Additional counseling was provided here today in regards to, [ ]. The above visit was performed by [ ], under direct supervision of [ ]. Document reviewed and amended by provider signed below. Jan, Elevated cholesterol (ICD-10 - E78.00) Instructed on diet and exercise with continued statin therapy.Discussed the beneficial effects of lowering cholesterol in reducing the risk for cerebrovascular and cardiovascular disease. Jan, Primary hypertension (ICD-10 - I10) This patient is instructed to consume a healthy, low-fat, low-salt diet. They are also encouraged to continue exercise to achieve/maintain a normal BMI. Jan, Gastroesophageal reflux disease with esophagitis without hemorrhage (ICD-10 - K21.00) Diet instructions: Smaller portions, avoid eating and laying flat, avoid eating or drinking prior to bedtime. Weight loss. 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 Jan, Menopause (ICD-10 - Z78.0) Ca and Vit D supplements, Weight bearing exercises. Jan, Hordeolum externum o f right lower eyelid (ICD-10 - H00.012) Warm compresses, gentle massage, begin antibiotics [facility] Other 10-02-2023 [facility] History of Present illness Narrative* Jamie Guardado MD - 01/15/2023 1:32 PM EDT Images from the original note were not included. INFECTIOUS DISEASES OUTPATIENT FOLLOW-UP NOTE SERVICE DATE: January 15, 2023 Last visit: 10/18/2022 INTERVAL HPI : HPI: 57 year old female with medical history of urothelial carcinoma with micropapillary differentiation s/p radical cystectomy and ileal conduit (04/2021, never received BCG), HTN, DM1, chronic sinusitis, and asthma with recent admission for new hydrocephalus and enhancement of the anterior sabra, medulla, and spine from C7-T3 and L1-S2. April 2022 admitted for encephalopathy, found to have DKA and was discharged to SNF. May 27 2022, the patient was found unresponsive. CPR was performed and she was transferred to [facility]. She was found to have DKA. A CT head showed hydrocephalus with MRI on May 29 showing multiple enhancement in the anterior sabra, medulla, and in the spine at the level of C7-T3 and L1-S2. Multiple taps were performed and were unsuccessful. A TYPEWRITER TESTER shunt was placed and patient underwent a meningeal biopsy which pathology showed hyphae elements. PCR sentover multiple tissue samples and CSF next gen sequencing was negative and was negative. She was started on posaconazole to cover molds. While taylor can present with pseudohyphae, it did not grow, which concerns for other molds rather than yeast CT 08/16/2022 Relative normalization of ventricular caliber with resolved asymmetric slit like appearance of the right lateral ventricle with shunt in place since 08/16/2022. Small subdural hygromas over the frontal lobes (8 mm). LFTs 08/16 normal . TYPEWRITER TESTER shunt was adjusted from 4 to 7 Posaconazole level 2.4 on 08/21/22 Developed a facial rash in September 2022, mainly the malar area, a few spots on the forehead. 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 She was seeing wound care at [facility] for her sacral area ulcer. Rx'd with medical honey gel and silicone bordered foam bandage. Healed over several months At her ID clinic visit 10/18/22 she was doing very well. The rash had improved over malar region witha few papules on forehead. Appeared c/w rosacea, with patchy erythema and papules over cheeks. Did not appear to be from the posaconazole. Neurologically she was intact except for some areas of sensory deficit lateral thighs and upper thoracic area, and some imbalance on Romberg testing. CTH 11/15/22 done to FU on hygromas, showed VPS in place, ventricular size stable, slight decrease insmal bifrontal convexity subdural hygromas. Posaconazole 3.4 Saw Neurosurgery 8/31. She was thought to be doing well neurologically, and CT scan was stable. No changes in shunt settings. Plan was for follow-up with neurosurgery in 4-[address] urogram and CT scan of the chest 12/25/2022 per urology: CTU 12/25/2022 - New trace pelvic ascites. 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 Otherwise no evidence of intra- abdominal/pelvic metastases. CT Chest 12/25/2022 -Interval resolution of the previously noted centrilobular groundglass opacities. New patchy and streaky scarring/discoid atelectasis in the left lower lobe She was seen by urology 01/09/2023 in follow-up for her urothelial carcinoma with micropapillary differentiation. She has had a complex urinary history preceding this fungal infection, s/p RARC, eBPLND, 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 History of volvulus s/p ex lap, reduction of volvulus. 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 Has gained wt. Urology felt her urothelial CA was CHRISTINE on surveillance imaging, urine cytology. Continue surveillance imaging q 6 months. Hawkins remains in place. Currently: She continues to do well overall. Her strength is improving overall and she is ambulatory. Uses a cane for safety but also walks some without the cane. She has had no falls. No problems with her TYPEWRITER TESTER shunt, and no tenderness over the shunt track. She has been working on her balance and this has improved. There is an area of persistent numbness in the upper thoracic region which has not changed much, along with some areas of numbness on the lateral thighs, which has been present all along. She continues to tolerate the posaconazole without any problems. Her facial rash is improving, still some residual but has been overall better since this started inJ2022. She has been pushing herself to become more active. Her weight has also been stable around 130 pounds. Prior to her cancer diagnosis and fungal meningitis she weighed around 195 pounds and at one point was down to 105 pounds. She has recently been stable for several months now in the 130 pound range. We reviewed the overall plan of 1 year of antifungals and then reassess with imaging. Her blood sugars have been well controlled. She sees a director physical locally for her type 1 diabetes MEDICATIONS: Current Outpatient Medications Medication Sig metoprolol succinate ER (TOPROL XL) 100 mg Take 1 tablet by mouth every 12 hours 6am/6pm. posaconazole DR (NOXAFIL) 100 mg tablet Take 3 tablets by mouth once daily. pantoprazole DR (PROTONIX) 40 mg tablet Take 1 tablet by mouth DAILY (6 AM). metoprolol tartrate, short acting, (LOPRESSOR) 50 mg tablet Take 1 tablet by mouth every 12 hours. (Patient not taking: Reported on 12/14/2022) insulin glargine 100 unit/mL (3 mL) Inject 18 Units subcutaneously daily at bedtime. calcium carbonate (TUMS) 500 mg chew Take 1 tablet by mouth three times daily as needed. diclofenac (VOLTAREN) 1 % topical gel Apply 2 g to affected area four times daily as needed (for knee pain - bilateral). insulin lispro (HUMALOG U-100 INSULIN) 100 unit/mL injection Inject 0-8 units subcutaneously 3 times daily before meals. Patient to carb count 1 unit per 9 g of carbs insulin lispro (HUMALOG U-100 INSULIN) 100 unit/mL injection Inject 0-10 units subcutaneously 3 times daily before meals. Supplemental Sliding Scale: Humalog Program #2 AC If Blood Glucose (mg/dL) is <110 Give 0 units 111-150 Give 0 units 151-200 Give 2 unit 201-250 Give 4 units 251-300 Give 6 units 301-350 Give 8 units 351-400 Give 10 units >400 give 10units and notify provider. insulin lispro (HUMALOG U-100 INSULIN) 100 unit/mL injection Inject 0-5 units subcutaneously at bedtime. <110 Give 0 units 111-150 Give 0 units 151-200 Give 1 unit 201-250 Give 2 units 251-300 Give 3 units 301-350 Give 4 units 351-400 Give 5 units >400 give 5units and notify provider. glucagon (BAQSIMI) 3 mg/actuation nasal spray Use 1 [place] in the nose as needed. acetaminophen (TYLENOL) 325 mg tablet Take 2 tablets by mouth every 6 hours as needed for pain. L.acid-L.casei-B.bif-B.mary beth-FOS (PROBIOTIC BLEND) 2 billion cell-50 mg cap Take 1 capsule by mouth once daily. fexofenadine (ALESSIO) 180 mg tablet Take by mouth. PRN ipratropium bromide (ATROVENT) 42 mcg (0.06 %) nasal spray Use in the nose. (Patient taking differently: as needed. Use in the nose.) ferrous sulfate 325 mg (65 mg iron) tablet Take 1 tablet by mouth every other day. No current facility-administered medications for this visit. PHYSICAL EXAM BP 154/66 Pulse 69 Temp 36.7 C (98 F) (Temporal Artery) Resp 18 Wt 60.8 kg (134 lb) SpO2 98% BMI 21.63 kg/m PSYCHIATRIC: looks well, ambulatory on her own. Oriented x 3, appropriate affect, SKIN: patchy brawny erythema on cheeks with some pink papules and dilated vessels, c/w rosacea H: no lesions. TYPEWRITER TESTER shunt palpable along its track and nontender EYES: PERRL EOMI no scleral icterus, no conjunctivitis ENT: no oral lesions NECK: no meningismus RESPIRATORY: symmetrical chest expansion and respiratory effort, clear to auscultation CARDIOVASCULAR: S1, S2, no murmurs, no gallops, no rubs, no edema ABDOMINAL: soft, non-distended, non-tender. Ileal conduit stoma in place, pink and no [arastomal hernia Hawkins with clear urine MUSCULOSKELETAL: no joint effusions or swelling. EXTREMITIES: Within normal limits NEUROLOGICAL: alert, oriented, speech appropriate CRANIAL NERVES: Pupils: OD Right: 3 mm Reactive OS Left: 3 mm Reactive II Visual taylor: are full to confrontation III, IV, EOM full V Facial sensation normal to light touch VII Normal strength VIII Normal bilaterally to finger rub IX, X Normal, midline palatal rise XI Symmetric shrug, and head rotation XII Tongue midline, mobile Motor: UE BICEPS TRICEPS DELTS Wrist Ext Wrist Flex Arabic Professor R 5/5 5/5 5/5 5/5 5/5 5/5 L 5/5 5/5 5/5 5/5 5/5 5/5 LE Hip Flex Knee Flex Knee Extend Plantarflex Dorsiflex EHL R 5/5 5/5 5/5 5/5 5/5 5/5 L 5/5 5/5 5/5 5/5 5/5 5/5 Pronator drift: no pronator drift bilaterally Sensory: light touch: decreased in high thoracic area on back (but able to perceive LT) Lateral thighs also with decreased LT (but able to correctly perceive) Reflexes: RIGHT LEFT Brachioradialis 2+ 2+ Biceps 2+ 2+ Triceps 2+ 2+ Knee 2+ 2+ Achilles 1+ 1+ Long Tract Signs: No clonus, Babinski, or Hoffmans. Muscle tone: Normal No fasciculations or tremors noted. Cerebellar: Finger nose finger: normal Fine finger movements were normal. Foot tapping was normal bilaterally Romberg: + swaying with eyes open LABORATORIES Component Latest Ref Rng & Units 07/05/2022 08/21/2022 11/15/2022 Posaconazole, Serum 0.7 - 3.9 ug/mL 4.3 (H) 2.4 3.4 Component Latest Ref Rng & Units 11/15/2022 WBC 3.70 - 11.00 k/uL 4.09 RBC 3.90 - 5.20 m/uL 4.32 Hemoglobin 11.5 - 15.5 g/dL 12.4 Hematocrit 36.0 - 46.0 % 38.7 MCV 80.0 - 100.0 fL 89.6 MCH 26.0 - 34.0 pg 28.7 MCHC 30.5 - 36.0 g/dL 32.0 RDW-CV 11.5 - 15.0 % 15.4 (H) Platelet Count 150 - 400 k/uL 256 MPV 9.0 - 12.7 fL 10.1 Neut% % 68.2 Abs Neut (ANC) 1.45 - 7.50 k/uL 2.79 Lymph% % 21.5 Abs Lymph 1.00 - 4.00 k/uL 0.88 (L) Boyd% % 8.6 Abs Boyd <0.87 k/uL 0.35 Eosin% % 1.0 Abs Eosin <0.46 k/uL 0.04 Baso% % 0.5 Abs Baso <0.11 k/uL <0.03 Immature Gran % % 0.2 IMMATURE GRANS (ABS) <0.10 k/uL <0.03 NRBC /100 WBC 0.0 Absolute nRBC <0.01 k/uL <0.01 DTYPE Auto Protein, Total 6.3 - 8.0 g/dL 6.4 Albumin 3.9 - 4.9 g/dL 4.2 Calcium 8.5 - 10.2 mg/dL 9.1 Bilirubin, Total 0.2 - 1.3 mg/dL 0.4 Alkaline Phosphatase 34 - 123 U/L 93 AST 13 - 35 U/L 14 ALT 7 - 38 U/L 14 Glucose 74 - 99 mg/dL 137 (H) BUN 7 - 21 mg/dL 12 Creatinine 0.58 - 0.96 mg/dL 0.59 Sodium 136 - 144 mmol/L 144 Potassium 3.7 - 5.1 mmol/L 3.7 Chloride 97 - 105 mmol/L 108 (H) CO2 22 - 30 mmol/L 27 Anion Gap 9 - 18 mmol/L 9 eGFR >=60 mL/min/1.73m 106 MICROBIOLOGY: 07/02 CSF culture 07/02 NG Landenberg fungal PCR PCR from biopsy tissue are both negative ([facility]) 06/28 CSF (labelled lumbar puncture but is from EVD): MNGS negative 06/27 CSF (labelled lumbar puncture but is from EVD): No growth, Crypto antigen negative 06/26 OR cultures Dural/subdural itradural thoracic lesion Tissue: gram stain negative. NGTD Wound culture: gram stain negative. NGTD AFB smear no organsims. Fungal: smear: no fungus seen Landenberg bacterial, fungal and AFB PCRs: negative (entire block submitted for fungal PCR) Other tests: Fungitell 06/30/22 negative Aspergillus/Galactomannan negative Histoplasma urinary antigen 06/21 negative Q fever titers 06/21: negative TB screen negative 06/18 Lyme negative 06/18 Fungal battery negative S/p Cisternal tap 06/16/22 49% neut, 51% lymph, glucose 162, protein 30 Cytology negative HSV CSF PCR negative CNSide panel negative for tumor cells Lyme IgG/IgM negative TB screen negative C diff neg Pathology 06/26/22: A. Intradural thoracic region, excision: - Peripheral nerve and adjacent soft tissue with focal chronic inflammation and fibrosis. - Negative for neoplasm. B. Dura, site not further specified, excision: - Focal necrosis with chronic inflammation and fibrosis. - Negative for neoplasm. Addendum Gram, GMS, and AFB stains were performed on block B1. Rare fungal hyphae are noted on the GMS stained section. Additional organisms are not noted on the AFB or gram stain sections Gram, GMS, and AFB stains were performed on block B1. Rare fungal hyphae are noted on the GMS stained section. Additional organisms are not noted on the AFB or gram stain sections. Gram, GMS, and AFB stains were performed on block B1. Rare fungal hyphae are noted on the GMS stained section. Additional organisms are not noted on the AFB or gram stain sections. ASSESSMENT: 57 year old woman with history of: - HTN, T1DM, esophagitis, chronic sinusitis, asthma - Urothelial carcinoma with micropapillary differentiation s/p radical cystectomy and ileal conduitwithout BCG therapy 04/2021 c/b post op failure to thrive - 12/2021 SBO s/p ex lap with reduction of volvulus and right ureteral reimplantation into ileal conduit, right ureteral stent placement. 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 T4-9 intramedullary hyperintensity suggesting cord edema due to compression superiorly - Course complicated by unsuccessful LP attempts at [facility] then transferred to [facility] - s/p cisternal tap 06/16/22 with limited volume: TNC 1, 49% pmn, 51% lymphocytes, glucose 162, protein 30. Cultures, cytology, HSV PCR, and CSF biocept Cnside panel negative for malignancy - 06/22/22 MRI brain and spine with worsening hydrocephalus but limited due to intolerance - 06/26 s/p T5 intradural biopsy with placement of EVD. Findings in OR with thickened dura, necroticfluid. Pathology with fungal hyphae confirmed on multiple sections. Landenberg PCR and cultures all negative, including the tissue block in its entirety sent for universal fungal PCR and negative - CSF 06/28/22 negative on Next Gen sequencing - posaconazole started 06/29/22 - s/p TYPEWRITER TESTER shunt on 07/10.and improving MS since then. - small subdural hygromas over frontal convexities on CT, shunt settings adjusted She continues on empiric oral posaconazole > 6 months now (start 06/29/22) and continues to improve. She has an unremarkable neuro exam except for some decreased sensation upper back region (aroundT5) and anterolateral thigh. MS is at baseline. She is ambulatory with a cane, improving wt, balance, and overall motor strength. Risk factors for fungal meningitis/leptomeningeal disease only include diabetes. Given the extent of the leptomeningeal disease around spine and cauda equina, plan is for at least one year of posaconazole. PLAN: - Continue posaconazole 300 mg daily for at least a year - Will check posaconazole trough level, LFTs - Will plan on MRI spine at 1 year (June 2023), to help decide length of therapy of posaconazole - cancer surveillance per Urology - FU 2 months Jamie Guardado MD January 15, 2023 documented in this encounterAd[facility]27[facility]23 Miscellaneous Notes* Telephone Encounter - Zarina Norton RN - 01/10/2023 10:10 AM EDT Spoke with patient's medical supplier - [employer] ([phone]). They can only send 2 night time drainage bags per month due to patient's insurance coverage. Spoke with patient and relayed message to her. Offered options of this office will supply bags at her office visits if she needs them. Also aware that bags may be purchased on [employer]. documented in this encounterAdams County [facility]09-26-2023 NoteHNO ID: [id number] Author: Peterson Gonsalez MD Service: ? Author Type: Physician Type: Progress Notes Filed: 01/09/2023 11:45 AM Note Text: [facility] ESTABLISHED PATIENT OFFICE VISIT REASON FOR VISIT: Follow up HPI 57 year old female presenting for follow-up of 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 History of volvulus s/p ex lap, reduction of volvulus, and right ureteral reimplantation 12/16/2021. She subsequently presented and was hospitalized with SBO and underwent ex lap, reduction of volvulus, and right ureteral reimplantation into ileal conduit with placement of a right ureteral stent (7Fr x 24cm JJ) 12/16/[address] Gong and myself. 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 Seen 05/02/2022 where she reported continued weight loss (105 lbs down from 195 prior to surgery). 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 Extensive work-up was performed, including multiple LPs, meningeal biopsy (positive for fungal hyphae), TYPEWRITER TESTER shunt placement with clinical improvement with this an antifungal therapy. CT A/P w/IV contrast 06/15/2022 - CHRISTINE CT Chest 06/15/2022 - CHRISTINE. Last seen by me 08/16/2022 where she reported doing very well since hospital discharge. She spent time in acute rehab after hospital discharge, after her first week she was able to walk 350 feet and was subsequently discharged home. She reports continued improvement in her functional capacity and ambulatory ability. CTU 12/25/2022 - New trace pelvic ascites. 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 Otherwise no evidence of intra-abdominal/pelvic metastases. CT Chest 12/25/2022 -Interval resolution of the previously noted centrilobular groundglass opacities. New patchy and streaky scarring/discoid atelectasis in the left lower lobe Today, she is up to ~130 pounds, was 98 at discharge from last hospitalization. Reports that her activity is improving and is working on balance and numbness in legs since last surgery. No difficulty keeping sugars under control since discharge. Is looking for ways to be more active. Regular bowel movements. PATHOLOGY: Ureter resection 12/17/2021: A. Ureter, right, segmental resection: - Segment of benign ureter with marked edema, acute inflammation, and epithelial denudation. Cystectomy 04/20/2021: FINAL DIAGNOSIS 1. Left distal ureter, excision (A): Ureter, negative for malignancy. 2. Right distal ureter, excision (B): Ureter, negative for malignancy. 3. Bladder, uterus, bilateral fallopian tubes, left ovary, anterior vaginal wall, anterior exenteration (C): -No residual tumor. -Prior biopsy site changes. -Cervix with mild chronic inflammation and nabothian cysts. -Inactive endometrium with adenomyosis. -Bilateral fallopian tubes and ovary, negative for malignancy. -Margins of resection are negative for malignancy. -See synoptic report. 4. Left distal ureter, excision (D): Ureter, negative for malignancy. 5. Right distal ureter margin, excision (E): Ureter, negative for malignancy. 6. Bilateral pelvic lymph nodes, excision (F): Seven lymph nodes, negative for malignancy (0/7). 7. Right common iliac lymph nodes, excision (G): One lymph node, negative for malignancy (0/1). LABS: Creatinine Date Value Ref Range Status 11/15/2022 0.59 0.58 - 0.96 mg/dL Final 08/21/2022 0.62 0.58 - 0.96 mg/dL Final 07/21/2022 0.43 (L) 0.58 - 0.96 mg/dL Final 07/20/2022 0.46 (L) 0.58 - 0.96 mg/dL Final URINALYSIS: pH, Arterial Date Value Ref Range Status 01/09/2022 7.40 7.35 - 7.45 Final Specific [place], Ur Date Value Ref Range Status 06/12/2022 1.010 1.005 - 1.030 Final Glucose, Urine Date Value Ref Range Status 06/12/2022 Negative Trace, Negative Final Bilirubin, Urine Date Value Ref Range Status 06/12/2022 Negative Negative Final Ketones, Urine Date Value Ref Range Status 06/12/2022 Negative Negative, Trace Final Hemoglobin/Blood,Ur Date Value Ref Range Status 06/12/2022 Trace Negative, Trace Final Protein, Urine Date Value Ref Range Status 06/12/2022 Negative Trace, Negative Final Nitrites Date Value Ref Range Status 06/12/2022 Negative Negative Final WBC, Urine Date Value Ref Range Status 06/12/2022 0-5 /HPF 0-5 /HPF Final IMAGING: CTU 04/25/2022 IMPRESSION: NO NEPHROLITHIASIS. LEFT NEPHROLITHIASIS. NO CT EVIDENCE OF ACUTE INTRA-ABDOMINAL PROCESS. NO CT EVIDENCE OF METASTASIS IN THE ABDOMEN AND PELVIS. CT Chest 04/25/2022 IMPRESSION: NO CT EVIDENCE OF METASTASIS IN THE THORAX. NO SIGNIFICANT INTERVAL CHANGE SINCE 03/16/2021. CT (more content not included)...[id number] of Present illness Narrative* Peterson Gonsalez MD - 01/09/2023 10:20 AM EDT [facility] ESTABLISHED PATIENT OFFICE VISIT REASON FOR VISIT: Follow up HPI 57 year old female presenting for follow-up of 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 History of volvulus s/p ex lap, reduction of volvulus, and right ureteral reimplantation 12/16/2021. She subsequently presented and was hospitalized with SBO and underwent ex lap, reduction of volvulus, and right ureteral reimplantation into ileal conduit with placement of a right ureteral stent (7Fr x 24cm JJ) 12/16/[address] Gong and myself. 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 Seen 05/02/2022 where she reported continued weight loss (105 lbs down from 195 prior to surgery). 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 Extensive work-up was performed, including multiple LPs, meningeal biopsy (positive for fungal hyphae), TYPEWRITER TESTER shunt placement with clinical improvement with this an antifungal therapy. CT A/P w/IV contrast 06/15/2022 - CHRISTINE CT Chest 06/15/2022 - CHRISTINE. Last seen by me 08/16/2022 where she reported doing very well since hospital discharge. She spent time in acute rehab after hospital discharge, after her first week she was able to walk 350 feet and was subsequently discharged home. She reports continued improvement in her functional capacity and ambulatory ability. CTU 12/25/2022 - New trace pelvic ascites. 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 Otherwise no evidence of intra- abdominal/pelvic metastases. CT Chest 12/25/2022 -Interval resolution of the previously noted centrilobular groundglass opacities. New patchy and streaky scarring/discoid atelectasis in the left lower lobe Today, she is up to ~130 pounds, was 98 at discharge from last hospitalization. Reports that her activity is improving and is working on balance and numbness in legs since last surgery. No difficulty keeping sugars under control since discharge. Is looking for ways to be more active. Regular bowel movements. PATHOLOGY: Ureter resection 12/17/2021: A. Ureter, right, segmental resection: - Segment of benign ureter with marked edema, acute inflammation, and epithelial denudation. Cystectomy 04/20/2021: FINAL DIAGNOSIS 1. Left distal ureter, excision (A): Ureter, negative for malignancy. 2. Right distal ureter, excision (B): Ureter, negative for malignancy. 3. Bladder, uterus, bilateral fallopian tubes, left ovary, anterior vaginal wall, anterior exenteration (C): -No residual tumor. -Prior biopsy site changes. -Cervix with mild chronic inflammation and nabothian cysts. -Inactive endometrium with adenomyosis. -Bilateral fallopian tubes and ovary, negative for malignancy. -Margins of resection are negative for malignancy. -See synoptic report. 4. Left distal ureter, excision (D): Ureter, negative for malignancy. 5. Right distal ureter margin, excision (E): Ureter, negative for malignancy. 6. Bilateral pelvic lymph nodes, excision (F): Seven lymph nodes, negative for malignancy (0/7). 7. Right common iliac lymph nodes, excision (G): One lymph node, negative for malignancy (0/1). LABS: Creatinine Date Value Ref Range Status 11/15/2022 0.59 0.58 - 0.96 mg/dL Final 08/21/2022 0.62 0.58 - 0.96 mg/dL Final 07/21/2022 0.43 (L) 0.58 - 0.96 mg/dL Final 07/20/2022 0.46 (L) 0.58 - 0.96 mg/dL Final URINALYSIS: pH, Arterial Date Value Ref Range Status 01/09/2022 7.40 7.35 - 7.45 Final Specific [place], Ur Date Value Ref Range Status 06/12/2022 1.010 1.005 - 1.030 Final Glucose, Urine Date Value Ref Range Status 06/12/2022 Negative Trace, Negative Final Bilirubin, Urine Date Value Ref Range Status 06/12/2022 Negative Negative Final Ketones, Urine Date Value Ref Range Status 06/12/2022 Negative Negative, Trace Final Hemoglobin/Blood,Ur Date Value Ref Range Status 06/12/2022 Trace Negative, Trace Final Protein, Urine Date Value Ref Range Status 06/12/2022 Negative Trace, Negative Final Nitrites Date Value Ref Range Status 06/12/2022 Negative Negative Final WBC, Urine Date Value Ref Range Status 06/12/2022 0-5 /HPF 0-5 /HPF Final IMAGING: CTU 04/25/2022 IMPRESSION: NO NEPHROLITHIASIS. LEFT NEPHROLITHIASIS. NO CT EVIDENCE OF ACUTE INTRA-ABDOMINAL PROCESS. NO CT EVIDENCE OF METASTASIS IN THE ABDOMEN AND PELVIS. CT Chest 04/25/2022 IMPRESSION: NO CT EVIDENCE OF METASTASIS IN THE THORAX. NO SIGNIFICANT INTERVAL CHANGE SINCE 03/16/2021. CTU 12/25/2022 IMPRESSION: 1. New trace pelvic ascites. 2. 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 Consider interval follow-up or direct visualization. 3. Otherwise no evidence of intra-abdominal/pelvic metastases. 4. Punctate nonobstructing left renal stones. CT Chest 12/25/2022 IMPRESSION: 1. Interval resolution of the previously noted centrilobular groundglass opacities. 2. New patchy and streaky scarring/discoid atelectasis in the left lower lobe. Consider follow-up to complete resolution. 3. Other subcentimeter nodular opacities measuring less than 5 mm, stable since 06/15/22. ALLERGIES: ALLERGIES Allergen Reactions Demeral [Meperidine] GI Upset Nausea, pt states room spins Flexeril [Cyclobenz* Hives Versed [Midazolam] Mental Status Change MEDICATIONS: Current Outpatient Medications Medication Sig metoprolol succinate ER (TOPROL XL) 100 mg Take 1 tablet by mouth every 12 hours 6am/6pm. posaconazole DR (NOXAFIL) 100 mg tablet Take 3 tablets by mouth once daily. insulin lispro (HUMALOG U-100 INSULIN) 100 unit/mL injection Inject 0-8 units subcutaneously 3 times daily before meals. Patient to carb count 1 unit per 9 g of carbs insulin lispro (HUMALOG U-100 INSULIN) 100 unit/mL injection Inject 0-10 units subcutaneously 3 times daily before meals. Supplemental Sliding Scale: Humalog Program #2 AC If Blood Glucose (mg/dL) is <110 Give 0 units 111-150 Give 0 units 151-200 Give 2 unit 201-250 Give 4 units 251-300 Give 6 units 301-350 Give 8 units 351-400 Give 10 units >400 give 10units and notify provider. insulin lispro (HUMALOG U-100 INSULIN) 100 unit/mL injection Inject 0-5 units subcutaneously at bedtime. <110 Give 0 units 111-150 Give 0 units 151-200 Give 1 unit 201-250 Give 2 units 251-300 Give 3 units 301-350 Give 4 units 351-400 Give 5 units >400 give 5units and notify provider. glucagon (BAQSIMI) 3 mg/actuation nasal spray Use 1 Statham in the nose as needed. acetaminophen (TYLENOL) 325 mg tablet Take 2 tablets by mouth every 6 hours as needed for pain. L.acid-L.casei-B.bif-B.mary beth-FOS (PROBIOTIC BLEND) 2 billion cell-50 mg cap Take 1 capsule by mouth once daily. fexofenadine (ALESSIO) 180 mg tablet Take by mouth. PRN ipratropium bromide (ATROVENT) 42 mcg (0.06 %) nasal spray Use in the nose. (Patient taking differently: as needed. Use in the nose.) ferrous sulfate 325 mg (65 mg iron) tablet Take 1 tablet by mouth every other day. pantoprazole DR (PROTONIX) 40 mg tablet Take 1 tablet by mouth DAILY (6 AM). metoprolol tartrate, short acting, (LOPRESSOR) 50 mg tablet Take 1 tablet by mouth every 12 hours. (Patient not taking: Reported on 12/14/2022) insulin glargine 100 unit/mL (3 mL) Inject 18 Units subcutaneously daily at bedtime. calcium carbonate (TUMS) 500 mg chew Take 1 tablet by mouth three times daily as needed. diclofenac (VOLTAREN) 1 % topical gel Apply 2 g to affected area four times daily as needed (for knee pain - bilateral). No current facility-administered medications for this visit. HISTORIES PAST MEDICAL HISTORY Diagnosis Date Asthma 02/16/2021 Bladder cancer (HCC) 02/2021 urothelial carcinoma Diabetes mellitus type 1 (HCC) 04/13/2021 diagnosed at age 6 HTN (hypertension) 02/16/2021 Neoplasm of bladder 02/16/2021 Obesity 02/16/2021 Palpitations 02/16/2021 PAST SURGICAL HISTORY Procedure Laterality Date CYSTECTOMY W/BI PELVIC LYMPHADENECTOMY 04/2021 CYSTO.PANENDO 05/25/2021 EXPLORATORY OF ABDOMEN 12/17/2021 Reduction of small-bowel volvulus PAST SURGICAL HISTORY OF right ovary removed PAST SURGICAL HISTORY OF ORIF right ankle PAST SURGICAL HISTORY OF 02/18/2021 TURBT REMOVAL OF BLADDER & NODES VAGINAL HYSTERECTOMY Social History Tobacco Use Smoking status: Never Smokeless tobacco: Never Vaping Use Vaping Use: Never used Substance Use Topics Alcohol use: Not Currently Drug use: Never REVIEW OF SYSTEMS General: No weight loss, malaise or fevers., SEE HPI Genitourinary: See HPI The remainder of the ROS was reviewed and negative. PHYSICAL EXAMINATION BP 159/62 Pulse 71 Temp 36.6 C (97.9 F) (Oral) Wt 61.1 kg (134 lb 12.8 oz) BMI 21.76 kg/m General: Well appearing, alert, in no acute distress, and well-hydrated, well nourished Abdominal: Soft, non-distended, non-tender. Stoma red and well-perfused without stenosis or parastomal hernia Genitourinary: FEMALE EXAM: Exam NOT Indicated PROBLEMS: 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 Remains CHRISTINE on surveillance imaging, urine cytology today. Continue surveillance imaging q 6 months. History of volvulus s/p ex lap, reduction of volvulus, and right ureteral reimplantation . Imaging without hydronephrosis, is having regular bowel function and is recovering and regaining weight from multiple prior hospitalizations earlier this year. I spent a total of 40 minutes on the date of the service which included preparing to see the patient, [id number] patient care, completing clinical documentation, and obtaining and/or reviewing separately obtained history. By signing my name below, I, Hector Fisher, attest that this documentation has been prepared under the direction and in the presence of Dr. Gonsalez Electronically signed, Jeny Hoang STAFF PHYSICIAN NOTE OF PERSONAL INVOLVEMENT IN CARE The above noted history, physical, assessment and plan were reviewed with the provider and criticalportions of the H&P were confirmed. I evaluated and examined the patient and agree with the plan above and provided direct supervision of the above provider during this patient's care. Peterson Gonsalez MD documented in this encounterAdams County [facility]09-11-2023 NoteNation[facility]09-11-2023 NoteNationwide [facility]08-31-2023 NoteNationwide [facility]08-31-2023 History of Present illness Narrative* Marlene Cordero PA-C - 12/14/2022 2:00 PM EDT CC: TYPEWRITER TESTER shunt f/u HPI: Mrs Chikis Tobar comes to clinic today for surgical f/u. Chikis was admitted from H after being found unresponsive. CT brain showed hydrocephalus with MRI on May 29 showing multiple enhancement in the anterior sabra, medulla, and in the spine at the level of see 7-T3 and L1-S2. She underwent EVD placement followed by Certas shunt set to 4 on 07/10/22. Meningeal biopsy was notable for fungal hyphae and she is being treated by ID. On 08/16/[address] brain showed decreased in ventricular size development of small subdural hygromas overlying the frontal lobes measuring up to 8 mm in maximal thickness and her shunt was adjusted from 4 to 7. Since last visit Chikis has continued to do wel l. She admits stable gait and using cane for safety. She does have a hawkins in place but denies new onset symptoms or acute worsening. She is being treated by ID team. Focused Exam: Right frontal shunt site examined, no erythema, edema, warmth, or drainage noted. Incisions well approximated without evidence of wound dehiscence. Shunt is palpable. Higher integrative function: Oriented to person, place and time, speech clear and fluent, fundi of knowledge good, accurate naming of objects CN II: Visual acuity normal, Visual taylor full to confrontation CN III, IV, : Pupils equal, round and reactive to light, full extraoccular movements without nystagmus CN V: Facial sensation intact bilaterally to fine touch and pinprick, masseter 5/5 CN VII: Facial muscles symmetric and strong CN VIII: Hears finger rub well bilaterally CN IX: not tested CN X: Palate elevates symmetrically CN XI: Full strength shoulder shrug bilaterally CN XII: Tongue protrusion full and midline Motor: muscle strength 5/5 both upper and lower extremities, arm swing normal, no drift present, muscle tone normal and without evidence of atrophy Cerebellar: mild instability of gait Impression: Mrs Chikis Tobar is a pleasant 57 year old female seen for hospital follow up. Chikis underwent TYPEWRITER TESTER shunt placement on 07/10/22 as inpatient. 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 Since last visit Chikis has continued to do well. She is ambulating with a cane for safety andable to remain active. She states she was doing so well with PT they told her she could take time off from treatment. Hawkins in place with no new onset neurologic symptoms or complaints. CT brain shows minimal interval decrease in size of ventricular system with slight decrease in size of small bifrontal convexity subdural hygromas. Warning signs discussed in detail. Plan for follow up with CT brain in 4-6 months Plan: Shunt information Shunt type: Certas Initial settin New settin Marlene Cordero PA-C documented in this encounterAdams County [facility]08-02-2023 NoteNationwide [facility]07-05-2023 NoteNationwide [facility]07-05-2023 Instructions* Patient Instructions* Kim Lynch MD - 10/18/2022 10:45 AM EDT - Get blood work at your local [facility] lab , 1 hour before taking your posaconazole - See you in a few months documented in this encounterAdams County Regional [facility] Center07-05-2023 History of Present illness Narrative* Jamie Guardado MD - 10/18/2022 10:00 AM EDT INFECTIOUS DISEASES OUTPATIENT FOLLOW-UP NOTE SERVICE DATE: 10/18/2022 Subjective INTERVAL HPI : HPI: 57 year old female with medical history of urothelial carcinoma with micropapillary differentiation s/p radical cystectomy and ileal conduit (04/2021, never received BCG), HTN, DM1, chronic sinusitis, and asthma with recent admission for new hydrocephalus and enhancement of the anterior sabra, medulla, and spine from C7-T3 and L1-S2. April 2022 admitted for encephalopathy, found to have DKA and was discharged to SNF. May 27 2022, the patient was found unresponsive. CPR was performed and she was transferred to [facility]. She was found to have DKA. A CT head showed hydrocephalus with MRI on May 29 showing multiple enhancement in the anterior sabra, medulla, and in the spine at the level of C7-T3 and L1-S2. Multiple taps were performed and were unsuccessful. A TYPEWRITER TESTER shunt was placed and patient underwent a meningeal biopsy which pathology showed hyphae elements. PCR sentover multiple tissue samples and CSF next gen sequencing was negative and was negative. She was started on posaconazole to cover molds. While taylor can present with pseudohyphae, it did not grow, which concerns for other molds rather than yeast CT 08/16/2022 Relative normalization of ventricular caliber with resolved asymmetric slit like appearance of the right lateral ventricle with shunt in place since 08/16/2022. LFTs checked in 08/16 normal. Posaconazole level 2.4 a month ago Today, since her discharge she did great, she is gaining more strength, she is gaining wt and her appetite is back. She denies headaches, double vision or visual changes, she had a dilated eye exam recently and it was looking okay. She noticed new skin rash 2 weeks ago , that started as pimple looking lesions and now on the malar area with few spots on the forehead, it is not itchy but does have dilated blood vessels around it. She denies skin rash in other areas of her body. She also reports that numbness in still there but slowly getting better. No fevers or chills. ROS completed x14 and only pertinent data documented, the rest is negative except as documented above MEDICATIONS: Current Outpatient Medications Medication Sig posaconazole DR (NOXAFIL) 100 mg tablet Take 3 tablets by mouth once daily. pantoprazole DR (PROTONIX) 40 mg tablet Take 1 tablet by mouth DAILY (6 AM). metoprolol tartrate, short acting, (LOPRESSOR) 50 mg tablet Take 1 tablet by mouth every 12 hours. insulin glargine 100 unit/mL (3 mL) Inject 18 Units subcutaneously daily at bedtime. calcium carbonate (TUMS) 500 mg chew Take 1 tablet by mouth three times daily as needed. diclofenac (VOLTAREN) 1 % topical gel Apply 2 g to affected area four times daily as needed (for knee pain - bilateral). insulin lispro (HUMALOG U-100 INSULIN) 100 unit/mL injection Inject 0-8 units subcutaneously 3 times daily before meals. Patient to carb count 1 unit per 9 g of carbs insulin lispro (HUMALOG U-100 INSULIN) 100 unit/mL injection Inject 0-10 units subcutaneously 3 times daily before meals. Supplemental Sliding Scale: Humalog Program #2 AC If Blood Glucose (mg/dL) is <110 Give 0 units 111-150 Give 0 units 151-200 Give 2 unit 201-250 Give 4 units 251-300 Give 6 units 301-350 Give 8 units 351-400 Give 10 units >400 give 10units and notify provider. insulin lispro (HUMALOG U-100 INSULIN) 100 unit/mL injection Inject 0-5 units subcutaneously at bedtime. <110 Give 0 units 111-150 Give 0 units 151-200 Give 1 unit 201-250 Give 2 units 251-300 Give 3 units 301-350 Give 4 units 351-400 Give 5 units >400 give 5units and notify provider. glucagon (BAQSIMI) 3 mg/actuation nasal spray Use 1 Statham in the nose as needed. acetaminophen (TYLENOL) 325 mg tablet Take 2 tablets by mouth every 6 hours as needed for pain. L.acid-L.casei-B.bif-B.mary beth-FOS (PROBIOTIC BLEND) 2 billion cell-50 mg cap Take 1 capsule by mouth once daily. fexofenadine (ALESSIO) 180 mg tablet Take by mouth. PRN ipratropium bromide (ATROVENT) 42 mcg (0.06 %) nasal spray Use in the nose. (Patient taking differently: as needed. Use in the nose.) ferrous sulfate 325 mg (65 mg iron) tablet Take 1 tablet by mouth every other day. No current facility-administered medications for this visit. Objective Social History Tobacco Use Smoking status: Never Smokeless tobacco: Never Vaping Use Vaping Use: Never used Substance Use Topics Alcohol use: Not Currently Drug use: Never FAMILY HISTORY Problem Relation Age of Onset Anesthesia Problems No Family History Colon Cancer No Family History PHYSICAL EXAM PSYCHIATRIC: no apparent distress, oriented to time, place and person, appropriate affect, good judgment, good insight, memory intact SKIN: erythematous papules on face with dilated EYES: no scleral icterus, no conjunctivitis HEENT: normal inspection of teeth, lips, gums, and oropharynx NECK: normal appearance, normal movement RESPIRATORY: symmetrical chest expansion and respiratory effort, clear to auscultation CARDIOVASCULAR: S1, S2, no murmurs, no gallops, no rubs, no edema ABDOMINAL: soft, non-distended, non-tender MUSCULOSKELETAL: normal muscle strength, normal muscle tone EXTREMITIES: Within normal limits NEUROLOGICAL: no cranial deficits, 5/5 strength in upper and lower limbs. Mild imbalance when romberg is done DIAGNOSTICS REVIEWED/OPAT LABS REVIEWED PERTINENT LABS CBC: WBC 6.20 08/21/2022 Hemoglobin 11.9 08/21/2022 Hematocrit 37.3 08/21/2022 Platelet Count 387 08/21/2022 CMP: Sodium 147 08/21/2022 Potassium 4.2 08/21/2022 BUN 32 08/21/2022 Creatinine 0.62 08/21/2022 Glucose 102 08/21/2022 Creatinine clearance: Serum creatinine: 0.62 mg/dL 08/21/22 1509 Estimated creatinine clearance: 89.9 mL/min INFLAMMATORY MARKERS Sed Rate/CRP: CRP 1.1 01/02/2022 CRP 1.4 12/26/2021 CRP 4.8 12/22/2021 PERTINENT MICROBIOLOGY Reviewed, see micro PERTINENT RADIOLOGY REPORTS Reviewed Impression/Recommendations 57 year old female with medical history of urothelial carcinoma with micropapillary differentiations/p radical cystectomy and ileal conduit (04/2021, never received BCG), HTN, DM1, chronic sinusitis,and asthma with recent admission for new hydrocephalus and enhancement of the anterior sabra, medulla, and spine from C7-T3 and L1-S2. Multiple taps were performed and were unsuccessful. A TYPEWRITER TESTER shunt was placed and patient underwent a meningeal biopsy which pathology showed hyphae elements. PCR sent over multiple tissue samples and CSF next gen sequencing was negative and was negative. She is statuspost TYPEWRITER TESTER shunt placement. Started on Posaconazole for broad mold coverage. - Continue posaconazole 300 mg daily for at least a year - Check Lfts, and posa trough asked patient to get labs drawn 1 hour before sge takes posa in a local lab -aim for MRI 1 years after treatment - Follow up with Dr Guardado in [address] Guardado SIGNATURE: Kim Lynch MD PATIENT NAME: Chikis Tobar DATE: October 18, 2022 TIME: 9:27 AM INFECTIOUS DISEASES STAFF October 18, 2022 Details well outlined by Dr. Lynch above. We saw the patient together and gordon elements confirmed. Her note has been edited by me. I have personally interviewed and examined the patient. I have personally verified elements of the exam listed above. Interval changes are as noted. I have personally and independently reviewed X ray images, CT and MRI scans (see data section). I have personally reviewed the problem list above and concur. Changes, if any, are noted. I have personally reviewed the plan list above and concur. Changes, if any, are noted Jamie Guardado MD October 18, 2022 documented in this encounterAdams County [facility]06-08-2023 NoteNationwide [facility]06-08-2023 History of Present illness Narrative* Marlene Cordero PA-C - 09/21/2022 10:21 AM EDT CC: TYPEWRITER TESTER shunt f/u HPI: Mrs Chikis Tobar comes to clinic today for surgical f/u. Chikis was admitted from OSH after being found unresponsive. CT brain showed hydrocephalus with MRI on May 29 showing multiple enhancement in the anterior sabra, medulla, and in the spine at the level of see 7-T3 and L1-S2. She underwent EVD placement followed by Certas shunt set to 4 on 07/10/22. Meningeal biopsy was notable for fungal hyphae and she is being treated by ID. On 08/16/[address] brain showed decreased in ventricular size development of small subdural hygromas overlying the frontal lobes measuring up to 8 mm in maximal thickness. Her shunt was adjusted at last visit from 4 to 7. Since last visit Chikis has been doing very well. She is ambulating well with a cane and continues to work with PT. No current cognitive complaints Focused Exam: Right frontal shunt site examined, no erythema, edema, warmth, or drainage noted. Incisions well approximated without evidence of wound dehiscence. Shunt is palpable. Higher integrative function: Oriented to person, place and time, speech clear and fluent, fundi of knowledge good, accurate naming of objects CN II: Visual acuity normal, Visual taylor full to confrontation CN III, IV, : Pupils equal, round and reactive to light, full extraoccular movements without nystagmus CN V: Facial sensation intact bilaterally to fine touch and pinprick, masseter 5/5 CN VII: Facial muscles symmetric and strong CN VIII: Hears finger rub well bilaterally CN IX: not tested CN X: Palate elevates symmetrically CN XI: Full strength shoulder shrug bilaterally CN XII: Tongue protrusion full and midline Motor: muscle strength 5/5 both upper and lower extremities, arm swing normal, no drift present, muscle tone normal and without evidence of atrophy Cerebellar: stable gait with walker Impression: Mrs Chikis Tobar is a pleasant 57 year old female seen for hospital follow up. Chikis was admitted from OSH after being found unresponsive. CT brain showed hydrocephalus with MRI on May 29 showing multiple enhancement in the anterior sabra, medulla, and in the spine at the level of see 7-T3 and L1-S2. She underwent EVD placement followed by Certas shunt set to 4 on 07/10/22. On 08/16/22 herCT brain showed decreased in ventricular size development of small subdural hygromas overlying the frontal lobes measuring up to 8 mm in maximal thickness. Her shunt was adjusted at last visit from 4to 7. Following adjustment, Chikis has continued to do well with stable gait and no neurologic complaints. CT brain done on 09/14/22 showed normalization of ventricular caliber with decrease in sized of bilateral subdural hygromas. Plan for 2 month follow up with CT brain. Plan: Shunt information Shunt type: Certas Initial settin New settin Marlene Cordero PA-C documented in this encounterCleveland [id number] Evaluation note* Encounter Date Diagnosis Assessment Notes Treatment Notes Treatment Clinical Notes Sep, Hyperglycemia due to type 1 diabetes mellitus (ICD-10 - E10.65) This patient is following a comprehensive diabetic treatment plan. They are checking their feet daily for calluses and nonhealing ulcers. They are being seen for yearly dilated eye examinations. Goals: SBP less than 130, LDL less than 100, FBS less than 140, AC and A1C less than 7%. They are checking their BS daily, will which are reviewed at the office visit. Continue regular routine monitoring of A1C,] Microalbumin, Dilated eye exam and Foot exam Sep, HTN (hypertension) (ICD-10 - I10) This patient is instructed to consume a healthy, low-fat, low-salt diet. They are also encouraged to continue exercise to achieve/maintain a normal BMI. Sep, Elevated cholesterol (ICD-10 - E78.00) Instructed on diet and exercise with continued statin therapy.Discussed the beneficial effects of lowering cholesterol in reducing the risk for cerebrovascular and cardiovascular disease. Sep, Mass of upper outer quadrant of right breast (ICD-10 - N63.11) No palpable mass, no skin retraction or nipple discharge Sep, Moderate protein-calorie malnutrition (ICD-10 - E44.0) Appetite and weight improving. Continue healthy diet, protein supplements. Sep, Transitional cell carcinoma, bladder (ICD-10 - C67.9) No s/s recurrence. f/u Urology Sep, Chronic venous insufficiency (ICD-10 - I87.2) Avoid salt and elevate lower extremities, support stockings, inspect legs and feet daily for blisters and ulcerations. Sep, Insulin long-term use (ICD-10 - Z79.4) Sep, Ileostomy in place (ICD-10 - Z93.2) [facility] Other 06-01-2023 NoteNationwide Children'S Hospital06-01-2023 History of Present illness Narrative* Nivia Aguilar RT(R) - 09/14/2022 3:20 PM EDT Radiology Service Progress Note PATIENT NAME: Chikis Tobar DATE OF SERVICE: September 14, 2022 TIME: 3:00 PM PATIENT IDENTITY VERIFICATION COMPLETED USING TWO (2) IDENTIFIERS: Name and Date of confirmedby patient verbally and Name and Date of confirmed by identification band. FALL SCREENING: Has the patient had 2 falls in the last year or 1 fall with injury or currently using an Ambulatory Assistive Device (Walker, Cane, Wheelchair, Crutches, etc.)? No PATIENT GENDER DATA: Female. status: : No status: NO. PATIENT RELEVANT IMPLANT DATA REVIEWED: Not Applicable RADIOLOGY DEPARTMENT: CT; Exam(s) Completed: Brain PERIPHERAL IV DATA: Not applicable SIGNED BY: RT Renetta(Thompson) September 14, 2022 3:00 PM documented in this encounterAdams County Regional Medical Center05-31-2023 Progress note Author Marjorie Headley [facility] September 13, 2022 8:40am Note Date/Time September 13, 2022 8:40a m [facility] [address] [place] [address] Wound Center Provider Note Signed Patient: Chikis Tobar MR#: [id number] : 1965 Acct:[id number] Age/Sex: 57 / F Copies to: DO Marjorie Goins APRN~ HPI Date of Visit Date of Visit: Date of Service: 09/13/2022 Time of Service: 08:39 Narrative HPI: 08/08/22 Chikis is a 57 year old female presenting to [facility] wound care program for an initial visit for eval and treatment of a sacral area ulcer. She does have a history of bladder cancer- she has a urinary catheter and an ileostomy. She lives with her aunt currently and her cousin who is a nurse is helping with the dressings. Medical honey gel and silicone bordered foam bandagewill be used until seen next. A DME supplier was faxed the orders. Chikis will return within 2 weeks. A well balanced diet of protein, amino acids, low inflammation foods, and avoidance of fried, fast, and processed foods will be needed for healing as well as pressure relief and diabetic control with an A1C under 7. I see no signs of infection today. 08/23/22 improved, keep the same orders, 2 week appt, no acute signs of infection 09/13/22 better again, nearly healed, will keep same orders 2-3 week appt, hope to be healed at that visit Subjective Pain Sacrum: Pain Intensity: 0 Wound/Ulcer History When did wound start?: May 2022 Mode of Arrival/ Machine Staker: Family Assistive Device Used Today: Walker Lives with:: Multiple Family Members Appetite Description: Within Normal Limits Who helps w/ dressing change?: Family Why Do You Need Help?: Can't Reach Ulcer Smoking Status: Never smoker [facility] Medical History (Updated 08/08/22 @ 13:43 by Marjorie Headley APRN) Asthma Bladder cancer Diabetes Sacral ulcer Surgical History (Updated 08/08/22 @ 13:41 by Marjorie Headley APRN) History of bladder surgery BLADDER REMOVED History of ileal conduit History of open reduction and internal fixation (ORIF) procedure RIGHT ANKLE, HARDWARE REMOVED Hx of hysterectomy Family History Other HTN (hypertension) Social History Smoking Status: Never smoker Substance Use Type: None Grafts History of Graft History of Graft?: No Exam Physical Exam Vital Signs: Temp Pulse Resp BP O2 Del Method 97.3 F L 80 18 148/68 H Room Air 09/13/22 08:35 09/13/22 08:35 09/13/22 08:35 09/13/22 08:35 09/13/22 08:35 Const General: cooperative, comfortable and no acute distress Nutritional Appearance: thin Orientation: alert, awake and oriented x3 Lower/Upper Extremity Exam Vascular Exam-Pulses Left Brachial: Pulse Assessment Method: NIBP Objective Meds/Allergies Home Medications insulin aspart U-100 100 unit/mL subcutaneous solution (Novolog U-100 Insulin aspart) See Rx Instructions .Route .COMPLEX 04/30/21 [History Confirmed 08/08/22] metoprolol succinate 100 mg tablet,extended release 24 hr (Toprol XL) 100 mg PO BID 04/30/21 [History Confirmed 08/08/22] bacitracin 500 unit/gram topical ointment 1 applic topical DAILY 08/08/22 [History Confirmed 08/08/22] cholecalciferol (vitamin D3) 50 mcg (2,000 unit) capsule (Vitamin D3) 50 mcg PO DAILY 08/08/22 [History Confirmed 08/08/22] ferrous sulfate 325 mg (65 mg iron) tablet (iron) 325 mg PO DAILY 08/08/22 [History Confirmed 08/08/22] insulin glargine 100 unit/mL (3 mL) subcutaneous pen (Lantus Solostar U-100 Insulin) 18 unit subcut HS 08/08/22 [History Confirmed 08/08/22] pantoprazole 40 mg tablet,delayed release (Protonix) 40 mg PO DAILY 08/08/22 [History Confirmed 08/08/22] posaconazole 300 mg oral suspension,delayed release in a packet (Noxafil) 300 mgPO DAILY 08/08/22 [History Confirmed 08/08/22] sennosides 8.6 mg tablet (Senokot) 8.6 mg PO DAILY PRN Constipation 08/08/22 [History Confirmed 08/08/22] Allergies cyclobenzaprine [From Flexeril] Allergy (Verified 08/08/22 13:30) Rash meperidine [From Demerol] Allergy (Verified 08/08/22 13:30) Dizziness midazolam [From Versed] Allergy (Verified 08/08/22 13:30) Agitated Wound/Ulcer Sacrum: Type: Pressure/Injury Ulcer Pressure Ulcer/Injury Staging: Stage 3 Bed Appearance: [place] and Yellow Percent of Wound Bed Granulated/Red: 95 Percent of Devitalized: 5 Length (cm): 0.4 Width (cm): 0.3 Depth (cm): 0.1 CM Sq: 0.120 Surrounding Tissue Appearance: [place] Surrounding Tissue Temp: Warm Drainage Amount: Scant Drainage Description: Serosanguineous Drainage Odor: No Odor Results Height: 5 ft 6 in Weight: 48.081 kg Body Mass Index: 17.1 Assessment/Plan Assessment/Plan (1) Pressure ulcer of sacral region, stage 3: Code(s): L89.153 - Pressure ulcer of sacral region, stage 3 Status: Chronic (2) Bladder cancer: Code(s): C67.9 - Malignant neoplasm of bladder, unspecified Status: Chronic (3) Type 1 diabetes mellitus: Qualifiers: Diabetes mellitus complication status: with ketoacidosis Code(s): E10.9 - Type 1 diabetes mellitus without complications Status: Chronic (4) Limited mobility: Code(s): Z74.09 - Other reduced mobility Status: Chronic (5) Walker as ambulation aid: Code(s): Z99.89 - Dependence on other enabling machines and devices Status: Chronic (6) Thin build in adult: Status: Chronic Time spent with patient Time Spent With Patient (min): 12 Dictated By: Marjorie Headley APRN DD/ [id number] Signed By: <Electronically signed by STEVEN Headley> 09/13/22 0840 [facility] Work Phone: 1(250) 259-687705-12-2023 Evaluation note* Encounter Date Diagnosis Assessment Notes Treatment Notes Treatment Clinical Notes August, Palpitation (ICD-10 - R00.2) daPulse Other 05-12-2023 [facility] History of Present illness Narrative* Marlene Cordero PA-C - 08/25/2022 9:11 AM EDT CC: TYPEWRITER TESTER shunt f/u HPI: Mrs Chikis Tobar comes to clinic today for surgical f/u. Chikis was admitted from OSH after being found unresponsive. CT brain showed hydrocephalus with MRI on May 29 showing multiple enhancement in the anterior sabra, medulla, and in the spine at the level of see 7-T3 and L1-S2. She underwent EVD placement followed by Certas shunt set to 4 on 07/10/22. Meningeal biopsy was notable for fungal hyphae and she is being treated by ID. Chikis has been doing well since discharge, she is walking with walker and denies additional neurologic symptoms Focused Exam: Right frontal shunt site examined, no erythema, edema, warmth, or drainage noted. Incisions well approximated without evidence of wound dehiscence. Shunt is palpable. Higher integrative function: Oriented to person, place and time, speech clear and fluent, fundi of knowledge good, accurate naming of objects CN II: Visual acuity normal, Visual taylor full to confrontation CN III, IV, : Pupils equal, round and reactive to light, full extraoccular movements without nystagmus CN V: Facial sensation intact bilaterally to fine touch and pinprick, masseter 5/5 CN VII: Facial muscles symmetric and strong CN VIII: Hears finger rub well bilaterally CN IX: not tested CN X: Palate elevates symmetrically CN XI: Full strength shoulder shrug bilaterally CN XII: Tongue protrusion full and midline Motor: muscle strength 5/5 both upper and lower extremities, arm swing normal, no drift present, muscle tone normal and without evidence of atrophy Cerebellar: Stable with walker Impression: Mrs Chikis Tobar is a pleasant 57 year old female seen for hospital follow up. Chikis was admitted from OSH after being found unresponsive. CT brain showed hydrocephalus with MRI on May 29 showing multiple enhancement in the anterior sabra, medulla, and in the spine at the level of see 7-T3 and L1-S2. She underwent EVD placement followed by Certas shunt set to 4 on 07/10/22. She has been doing well since surgery without neurologic complaints. CT brain shows shunt catheter in place with slight decrease in ventricle size. Theres is development of small subdural hygromas overlying the frontal lobes measuring up to 8 mm in maximal thickness. We discussed need to decrease drainage to resolve hygromas. Chikis understands and agrees to adjust shunt from 4 to 7. Plan for follow up with CT brain in 4 weeks. We did discuss warning signs and when to present to ED Plan: Shunt information Shunt type: Certas Initial settin New settin Marlene Cordero PA-C documented in this encounterAd[facility] Progress note Author Marjorie Headley [facility] August 23, 2022 2:49pm Note Date/Time August 23, 2022 2:49p m [facility] [address] [place] [address] Wound Center Provider Note Signed Patient: Chikis Tobar MR#: [id number] : 1965 Acct:[id number] Age/Sex: 57 / F Copies to: DO Marjorie Goins APRN~ HPI Date of Visit Date of Visit: Date of Service: 08/23/2022 Time of Service: 14:48 Narrative HPI: 08/08/22 Chikis is a 57 year old female presenting to [facility] wound care program for an initial visit for eval and treatment of a sacral area ulcer. She does have a history of bladder cancer- she has a urinary catheter and an ileostomy. She lives with her aunt currently and her cousin who is a nurse is helping with the dressings. Medical honey gel and silicone bordered foam bandagewill be used until seen next. A DME supplier was faxed the orders. Chikis will return within 2 weeks. A well balanced diet of protein, amino acids, low inflammation foods, and avoidance of fried, fast, and processed foods will be needed for healing as well as pressure relief and diabetic control with an A1C under 7. I see no signs of infection today. 08/23/22 improved, keep the same orders, 2 week appt, no acute signs of infection Subjective Pain Sacrum: Pain Intensity: 0 Wound/Ulcer History When did wound start?: May 2022 Mode of Arrival/ Machine Staker: Family Assistive Device Used Today: Walker Lives with:: Multiple Family Members Appetite Description: Within Normal Limits Who helps w/ dressing change?: Family Why Do You Need Help?: Can't Reach Ulcer Smoking Status: Never smoker [facility] Medical History (Updated 08/08/22 @ 13:43 by Marjorie Headley APRN) Asthma Bladder cancer Diabetes Sacral ulcer Surgical History (Updated 08/08/22 @ 13:41 by Marjorie Headley APRN) History of bladder surgery BLADDER REMOVED History of ileal conduit History of open reduction and internal fixation (ORIF) procedure RIGHT ANKLE, HARDWARE REMOVED Hx of hysterectomy Family History Other HTN (hypertension) Social History Smoking Status: Never smoker Substance Use Type: None Grafts History of Graft History of Graft?: No Exam Physical Exam Vital Signs: Temp Pulse Resp BP O2 Del Method 97.9 F 85 18 138/69 Room Air 08/23/22 14:43 08/23/22 14:43 08/23/22 14:43 08/23/22 14:43 08/23/22 14:43 Const General: cooperative, comfortable and no acute distress Nutritional Appearance: thin Orientation: alert, awake and oriented x3 Lower/Upper Extremity Exam Vascular Exam-Pulses Left Brachial: Pulse Assessment Method: NIBP Objective Meds/Allergies Home Medications insulin aspart U-100 100 unit/mL subcutaneous solution (Novolog U-100 Insulin aspart) See Rx Instructions .Route .COMPLEX 04/30/21 [History Confirmed 08/08/22] metoprolol succinate 100 mg tablet,extended release 24 hr (Toprol XL) 100 mg PO BID 04/30/21 [History Confirmed 08/08/22] bacitracin 500 unit/gram topical ointment 1 applic topical DAILY 08/08/22 [History Confirmed 08/08/22] cholecalciferol (vitamin D3) 50 mcg (2,000 unit) capsule (Vitamin D3) 50 mcg PO DAILY 08/08/22 [History Confirmed 08/08/22] ferrous sulfate 325 mg (65 mg iron) tablet (iron) 325 mg PO DAILY 08/08/22 [History Confirmed 08/08/22] insulin glargine 100 unit/mL (3 mL) subcutaneous pen (Lantus Solostar U-100 Insulin) 18 unit subcut HS 08/08/22 [History Confirmed 08/08/22] pantoprazole 40 mg tablet,delayed release (Protonix) 40 mg PO DAILY 08/08/22 [History Confirmed 08/08/22] posaconazole 300 mg oral suspension,delayed release in a packet (Noxafil) 300 mgPO DAILY 08/08/22 [History Confirmed 08/08/22] sennosides 8.6 mg tablet (Senokot) 8.6 mg PO DAILY PRN Constipation 08/08/22 [History Confirmed 08/08/22] Allergies cyclobenzaprine [From Flexeril] Allergy (Verified 08/08/22 13:30) Rash meperidine [From Demerol] Allergy (Verified 08/08/22 13:30) Dizziness midazolam [From Versed] Allergy (Verified 08/08/22 13:30) Agitated Wound/Ulcer Sacrum: Type: Pressure/Injury Ulcer Pressure Ulcer/Injury Staging: Stage 3 Bed Appearance: [place] and Yellow Percent of Wound Bed Granulated/Red: 10 Percent of Devitalized: 90 Length (cm): 0.8 Width (cm): 0.8 Depth (cm): 0.1 CM Sq: 0.640 Surrounding Tissue Appearance: [place] Surrounding Tissue Temp: Warm Drainage Amount: Moderate Drainage Description: Serosanguineous Drainage Odor: No Odor Results Height: 5 ft 6 in Weight: 48.081 kg Body Mass Index: 17.1 Assessment/Plan Assessment/Plan (1) Pressure ulcer of sacral region, stage 3: Code(s): L89.153 - Pressure ulcer of sacral region, stage 3 Status: Chronic (2) Bladder cancer: Code(s): C67.9 - Malignant neoplasm of bladder, unspecified Status: Chronic (3) Type 1 diabetes mellitus: Qualifiers: Diabetes mellitus complication status: with ketoacidosis Code(s): E10.9 - Type 1 diabetes mellitus without complications Status: Chronic (4) Limited mobility: Code(s): Z74.09 - Other reduced mobility Status: Chronic (5) Walker as ambulation aid: Code(s): Z99.89 - Dependence on other enabling machines and devices Status: Chronic (6) Thin build in adult: Status: Chronic Time spent with patient Time Spent With Patient (min): 11 Dictated By: Marjorie Headley APRN DD/ 47 Signed By: <Electronically signed by STEVEN Headley> 08/23/22 1449 [facility] Work Phone: [phone]) 216-969205-10-2023 Miscellaneous Notes* Telephone Encounter - Marlene Cordero PA-C - 08/23/2022 10:00 AM EDT Call to Chikis to discuss hygroma on CT brain. She agreed to come for office visit on Sunday to reduce shunt setting tot 7. Marlene Cordero PA-C documented in this encounterAdams County [facility]05-08-2023 NoteN[facility]05-04-2023 Evaluation note* Encounter Date Diagnosis Assessment Notes Treatment Notes Treatment Clinical Notes August, Claustrophobia (ICD-10 - F40.240) daPulse Other 05-04-2023 Miscellaneous Notes* Telephone Encounter - Ami Lopez - 08/17/2022 10:12 AM EDT Patient called requesting a sedative medication for her to get her MRI done, states because she is claustrophobic. The pharmacy listed is where she's like her medication sent. Thank you, Ami Lopez documented in this encounterAdams County [facility] Center05-03-2023 NoteN[facility]05-03-2023 Evaluation note* Encounter Date Diagnosis Assessment Notes Treatment Notes Treatment Clinical Notes August, Mass of upper outer quadrant of right breast (ICD-10 - N63.11) daPulse Other 05-03-2023 History of Present illness Narrative* Peterson Gonsalez MD - 08/16/2022 12:45 PM EDT [facility] VIRTUAL VISIT REASON FOR VIRTUAL VISIT: Follow up for Bladder cancer VIRTUAL VISIT CONDUCTED BY: Wilmar DE JESUS 57 year old female presenting for evaluation of 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 History of volvulus s/p ex lap, reduction of volvulus, and right ureteral reimplantation . She subsequently presented and was hospitalized with SBO and underwent ex lap, reduction of volvulus, and right ureteral reimplantation into ileal conduit with placement of a right ureteral stent (7Fr x 24cm JJ) 12/16/[address] Gong and myself. 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 Last seen 05/02/2022 where she reported continued weight loss (105 lbs down from 195 prior to surgery). 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 Extensive work-up was performed, including multiple LPs, meningeal biopsy (positive for fungal hyphae), TYPEWRITER TESTER shunt placement with clinical improvement with this an antifungal therapy. CT A/P w/IV contrast 06/15/2022 - CHRISTINE CT Chest 06/15/2022 - CHRISTINE She reports doing very well since hospital discharge. She spent time in acute rehab after hospital discharge, after her first week she was able to walk 350 feet and was subsequently discharged home. She reports continued improvement in her functional capacity and ambulatory ability. She still has some weakness in her right leg. She reports that she is planned for continued antifungal therapy for one year. She states that with her PCP she is up to 114 pounds which she is pleased with and her appetite is improving. PATHOLOGY: Ureter resection 12/17/2021: A. Ureter, right, segmental resection: - Segment of benign ureter with marked edema, acute inflammation, and epithelial denudation. Cystectomy 04/20/2021: FINAL DIAGNOSIS 1. Left distal ureter, excision (A): Ureter, negative for malignancy. 2. Right distal ureter, excision (B): Ureter, negative for malignancy. 3. Bladder, uterus, bilateral fallopian tubes, left ovary, anterior vaginal wall, anterior exenteration (C): -No residual tumor. -Prior biopsy site changes. -Cervix with mild chronic inflammation and nabothian cysts. -Inactive endometrium with adenomyosis. -Bilateral fallopian tubes and ovary, negative for malignancy. -Margins of resection are negative for malignancy. -See synoptic report. 4. Left distal ureter, excision (D): Ureter, negative for malignancy. 5. Right distal ureter margin, excision (E): Ureter, negative for malignancy. 6. Bilateral pelvic lymph nodes, excision (F): Seven lymph nodes, negative for malignancy (0/7). 7. Right common iliac lymph nodes, excision (G): One lymph node, negative for malignancy (0/1). LABS: Creatinine Date Value Ref Range Status 07/21/2022 0.43 (L) 0.58 - 0.96 mg/dL Final 07/20/2022 0.46 (L) 0.58 - 0.96 mg/dL Final 07/19/2022 0.47 (L) 0.58 - 0.96 mg/dL Final 07/18/2022 0.50 (L) 0.58 - 0.96 mg/dL Final URINALYSIS: pH, Arterial Date Value Ref Range Status 01/09/2022 7.40 7.35 - 7.45 Final Specific [place], Ur Date Value Ref Range Status 06/12/2022 1.010 1.005 - 1.030 Final Glucose, Urine Date Value Ref Range Status 06/12/2022 Negative Trace, Negative Final Bilirubin, Urine Date Value Ref Range Status 06/12/2022 Negative Negative Final Ketones, Urine Date Value Ref Range Status 06/12/2022 Negative Negative, Trace Final Hemoglobin/Blood,Ur Date Value Ref Range Status 06/12/2022 Trace Negative, Trace Final Protein, Urine Date Value Ref Range Status 06/12/2022 Negative Trace, Negative Final Nitrites Date Value Ref Range Status 06/12/2022 Negative Negative Final WBC, Urine Date Value Ref Range Status 06/12/2022 0-5 /HPF 0-5 /HPF Final IMAGING: CTU 04/25/2022 IMPRESSION: NO NEPHROLITHIASIS. LEFT NEPHROLITHIASIS. NO CT EVIDENCE OF ACUTE INTRA-ABDOMINAL PROCESS. NO CT EVIDENCE OF METASTASIS IN THE ABDOMEN AND PELVIS. CT Chest 04/25/2022 IMPRESSION: NO CT EVIDENCE OF METASTASIS IN THE THORAX. NO SIGNIFICANT INTERVAL CHANGE SINCE 03/16/2021. ALLERGIES: ALLERGIES Allergen Reactions Demeral [Meperidine] GI Upset Nausea, pt states room spins Flexeril [Cyclobenz* Hives Versed [Midazolam] Mental Status Change MEDICATIONS: Current Outpatient Medications Medication Sig senna (SENOKOT) 8.6 mg tab Take 1 tablet by mouth twice daily. posaconazole DR (NOXAFIL) 100 mg tablet Take 3 tablets by mouth once daily. polyethylene glycol 3350 17 gram packet Take 1 Packet by mouth once daily. Dissolve dose in 4 - 8 ounces of liquid and take as directed. pantoprazole DR (PROTONIX) 40 mg tablet Take 1 tablet by mouth DAILY (6 AM). metoprolol tartrate, short acting, (LOPRESSOR) 50 mg tablet Take 1 tablet by mouth every 12 hours. insulin glargine 100 unit/mL (3 mL) Inject 18 Units subcutaneously daily at bedtime. bacitracin 500 unit/gram ointment Apply to affected area twice daily. calcium carbonate (TUMS) 500 mg chew Take 1 tablet by mouth three times daily as needed. diclofenac (VOLTAREN) 1 % topical gel Apply 2 g to affected area four times daily as needed (for knee pain - bilateral). insulin lispro (HUMALOG U-100 INSULIN) 100 unit/mL injection Inject 0-8 units subcutaneously 3 times daily before meals. Patient to carb count 1 unit per 9 g of carbs insulin lispro (HUMALOG U-100 INSULIN) 100 unit/mL injection Inject 0-10 units subcutaneously 3 times daily before meals. Supplemental Sliding Scale: Humalog Program #2 AC If Blood Glucose (mg/dL) is <110 Give 0 units 111-150 Give 0 units 151-200 Give 2 unit 201-250 Give 4 units 251-300 Give 6 units 301-350 Give 8 units 351-400 Give 10 units >400 give 10units and notify provider. insulin lispro (HUMALOG U-100 INSULIN) 100 unit/mL injection Inject 0-5 units subcutaneously at bedtime. <110 Give 0 units 111-150 Give 0 units 151-200 Give 1 unit 201-250 Give 2 units 251-300 Give 3 units 301-350 Give 4 units 351-400 Give 5 units >400 give 5units and notify provider. glucagon (BAQSIMI) 3 mg/actuation nasal spray Use 1 [place] in the nose as needed. acetaminophen (TYLENOL) 325 mg tablet Take 2 tablets by mouth every 6 hours as needed for pain. L.acid-L.casei-B.bif-B.mary beth-FOS (PROBIOTIC BLEND) 2 billion cell-50 mg cap Take 1 capsule by mouth once daily. fexofenadine (ALESSIO) 180 mg tablet Take by mouth. PRN ipratropium bromide (ATROVENT) 42 mcg (0.06 %) nasal spray Use in the nose. ferrous sulfate 325 mg (65 mg iron) tablet Take 1 tablet by mouth every other day. No current facility-administered medications for this visit. HISTORIES PAST MEDICAL HISTORY Diagnosis Date Asthma 02/16/2021 Bladder cancer (HCC) 02/2021 urothelial carcinoma Diabetes mellitus type 1 (HCC) 04/13/2021 diagnosed at age 6 HTN (hypertension) 02/16/2021 Neoplasm of bladder 02/16/2021 Obesity 02/16/2021 Palpitations 02/16/2021 PAST SURGICAL HISTORY Procedure Laterality Date CYSTECTOMY W/BI PELVIC LYMPHADENECTOMY 04/2021 CYSTO.PANENDO 05/25/2021 EXPLORATORY OF ABDOMEN 12/17/2021 Reduction of small-bowel volvulus PAST SURGICAL HISTORY OF right ovary removed PAST SURGICAL HISTORY OF ORIF right ankle PAST SURGICAL HISTORY OF 02/18/2021 TURBT REMOVAL OF BLADDER & NODES VAGINAL HYSTERECTOMY Social History Tobacco Use Smoking status: Never Smokeless tobacco: Never Vaping Use Vaping Use: Never used Substance Use Topics Alcohol use: Not Currently Drug use: Never REVIEW OF SYSTEMS General: SEE HPI Genitourinary: See HPI The remainder of the ROS was reviewed and negative. PHYSICAL EXAMINATION There were no vitals taken for this visit. Video not working on patient's end, exam therefore not performed REVIEWED ITEMS 1. Imaging 2. Labs PROBLEMS: 1. Malignant neoplasm of urinary bladder, unspecified site (HCC) - ICD9: 188.9, ICD10: C67.9 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 Remains CHRISTINE on imaging (most recently 06/2022), will continue imaging q6 months. History of volvulus s/p ex lap, reduction of volvulus, and right ureteral reimplantation Doing well from GI standpoint, tolerating oral intake with regular bowel function and is now gaining weight. RTC with repeat labs and imaging 12/2022. I spent a total of 30 minutes on the date of the service which included preparing to see the patient, [id number] patient care, completing clinical documentation, counseling and educating the patient/family/caregiver, ordering medications, tests, or procedures, and communicating with other HCPs (not separately reported). I have communicated my name and active licensure. The patient's identity and physical location were verified at the time of this visit. Either the patient or their legal event sales representative has been informed of the risks and benefits of -- and alternatives to -- treatment througha remote evaluation and consents to proceed with the evaluation remotely. By signing my name below, I, Hector Fisher, attest that this documentation has been prepared under the direction and in the presence of Dr. Gonsalez Electronically signed, Jeny Hoang STAFF PHYSICIAN NOTE OF PERSONAL INVOLVEMENT IN CARE The above noted history, physical, assessment and plan were reviewed with the provider and criticalportions of the H&P were confirmed. I evaluated and examined the patient and agree with the plan above and provided direct supervision of the above provider during this patient's care. Peterson Gonsalez MD August 16, 2022 documented in this encounterAdams County [facility]05-03-2023 NoteN[facility]04-28-2023 Evaluation note* Encounter Date Diagnosis Assessment Notes Treatment Notes Treatment Clinical Notes Jul, Type 1 diabetes mellitus with hyperglycemia (ICD-10 - E10.65) This patient is following a comprehensive diabetic treatment plan. They are checking their feet daily for calluses and nonhealing ulcers. They are being seen for yearly dilated eye examinations. Goals: SBP less than 130, LDL less than 100, FBS less than 140, AC and A1C less than 7%. They are checking their BS daily, will which are reviewed at the office visit. Jul, Elevated cholesterol (ICD-10 - E78.00) Instructed on diet and exercise with continued statin therapy.Discussed the beneficial effects of lowering cholesterol in reducing the risk for cerebrovascular and cardiovascular disease. Jul, HTN (hypertension) (ICD-10 - I10) This patient is instructed to consume a healthy, low-fat, low-salt diet. They are also encouraged to continue exercise to achieve/maintain a normal BMI. 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 Continue systemic antifungal treatment No back pain noted No fever or chills Jul, Moderate protein-calorie malnutrition (ICD-10 - E44.0) Good appetite. Healthy high protein, fiber diet Jul, Hx of diabetes with ketoacidosis (ICD-10 - Z86.39) Close monitoring of home BS. Healthy diet Continue basal insulin along w/ meal time sliding scale coverage daPulse Other 04-25-2023 Progress note Author Marjorie Headley [facility] August 08, 2022 1:48pm Note Date/Time August 08, 2022 1:4 8pm [facility] [address] [place] [address] Wound Center Provider Note Signed Patient: Chikis Tobar MR#: [id number] : 1965 Acct:[id number] Age/Sex: 57 / F Copies to: Juliette Berumen,DO Marjorie Headley APRN~ HPI Date of Visit Date of Visit: Date of Service: 08/08/2022 Time of Service: 13:39 Narrative HPI: 08/08/22 Chikis is a 57 year old female presenting to [facility] wound care program for an initial visit for eval and treatment of a sacral area ulcer. She does have a history of bladder cancer- she has a urinary catheter and an ileostomy. She lives with her aunt currently and her cousin who is a nurse is helping with the dressings. Medical honey gel and silicone bordered foam bandagewill be used until seen next. A DME supplier was faxed the orders. Chikis will return within 2 weeks. A well balanced diet of protein, amino acids, low inflammation foods, and avoidance of fried, fast, and processed foods will be needed for healing as well as pressure relief and diabetic control with an A1C under 7. I see no signs of infection today. Subjective Pain Sacrum: Pain Intensity: 0 Wound/Ulcer History When did wound start?: May 2022 Mode of Arrival/ Machine Staker: Family Assistive Device Used Today: Walker Lives with:: Multiple Family Members Appetite Description: Within Normal Limits Who helps w/ dressing change?: Family Why Do You Need Help?: Can't Reach Ulcer Smoking Status: Never smoker [facility] Medical History (Updated 08/08/22 @ 13:43 by Marjorie Headley APRN) Asthma Bladder cancer Diabetes Sacral ulcer Surgical History (Updated 08/08/22 @ 13:41 by Marjorie Headley APRN) History of bladder surgery BLADDER REMOVED History of ileal conduit History of open reduction and internal fixation (ORIF) procedure RIGHT ANKLE, HARDWARE REMOVED Hx of hysterectomy Family History Other HTN (hypertension) Social History Smoking Status: Never smoker Substance Use Type: None Grafts History of Graft History of Graft?: No Exam Physical Exam Vital Signs: Temp Pulse Resp BP 97.9 F 87 18 149/75 H 08/08/22 13:19 08/08/22 13:19 08/08/22 13:19 08/08/22 13:19 Const General: cooperative, comfortable and no acute distress Nutritional Appearance: thin Orientation: alert, awake and oriented x3 Lower/Upper Extremity Exam Vascular Exam-Pulses Left Brachial: Pulse Assessment Method: NIBP Objective Meds/Allergies Home Medications insulin aspart U-100 100 unit/mL subcutaneous solution (Novolog U-100 Insulin aspart) See Rx Instructions .Route .COMPLEX 04/30/21 [History Confirmed 08/08/22] metoprolol succinate 100 mg tablet,extended release 24 hr (Toprol XL) 100 mg PO BID 04/30/21 [History Confirmed 08/08/22] bacitracin 500 unit/gram topical ointment 1 applic topical DAILY 08/08/22 [History Confirmed 08/08/22] cholecalciferol (vitamin D3) 50 mcg (2,000 unit) capsule (Vitamin D3) 50 mcg PO DAILY 08/08/22 [History Confirmed 08/08/22] ferrous sulfate 325 mg (65 mg iron) tablet (iron) 325 mg PO DAILY 08/08/22 [History Confirmed 08/08/22] insulin glargine 100 unit/mL (3 mL) subcutaneous pen (Lantus Solostar U-100 Insulin) 18 unit subcut HS 08/08/22 [History Confirmed 08/08/22] pantoprazole 40 mg tablet,delayed release (Protonix) 40 mg PO DAILY 08/08/22 [History Confirmed 08/08/22] posaconazole 300 mg oral suspension,delayed release in a packet (Noxafil) 300 mgPO DAILY 08/08/22 [History Confirmed 08/08/22] sennosides 8.6 mg tablet (Senokot) 8.6 mg PO DAILY PRN Constipation 08/08/22 [History Confirmed 08/08/22] Allergies cyclobenzaprine [From Flexeril] Allergy (Verified 08/08/22 13:30) Rash meperidine [From Demerol] Allergy (Verified 08/08/22 13:30) Dizziness midazolam [From Versed] Allergy (Verified 08/08/22 13:30) Agitated Wound/Ulcer Sacrum: Type: Pressure/Injury Ulcer Pressure Ulcer/Injury Staging: Stage 3 Bed Appearance: [place] and Yellow Percent of Wound Bed Granulated/Red: 10 Percent of Devitalized: 90 Length (cm): 1.5 Width (cm): 1.1 Depth (cm): 0.1 CM Sq: 1.650 Surrounding Tissue Appearance: [place] Surrounding Tissue Temp: Warm Drainage Amount: Moderate Drainage Description: Serosanguineous Drainage Odor: No Odor Lidocaine Applied Topically: 2% Jelly Procedures Time Out: 2 Patient Identifiers, Correct Patient, Correct Side/Site, Correct Procedure and Safety Issues Reviewed Procedure: The sacral ulcer was anesthetized with topical 2% lidocaine gel. A curette was used to perform debridement for the removal of 1.5 cm? of devitalized tissue consisting of skin and slough. Debridement was down to healthy bleeding tissue. Estimated blood loss was very minimal. Hemostasis was achieved by applying pressure. The sacral ulcer now appears 1% more pink and the size remains the same. The patient tolerated well with no pain. Results Height: 5 ft 6 in Weight: 48.081 kg Body Mass Index: 17.1 Assessment/Plan Assessment/Plan (1) Pressure ulcer of sacral region, stage 3: Code(s): L89.153 - Pressure ulcer of sacral region, stage 3 Status: Chronic (2) Bladder cancer: Code(s): C67.9 - Malignant neoplasm of bladder, unspecified Status: Chronic (3) Type 1 diabetes mellitus: Qualifiers: Diabetes mellitus complication status: with ketoacidosis Code(s): E10.9 - Type 1 diabetes mellitus without complications Status: Chronic (4) Limited mobility: Code(s): Z74.09 - Other reduced mobility Status: Chronic (5) Walker as ambulation aid: Code(s): Z99.89 - Dependence on other enabling machines and devices Status: Chronic (6) Thin build in adult: Status: Chronic Time spent with patient Time Spent With Patient (min): 17 Dictated By: Marjorie Headley APRN DD/ 1339 Signed By: <Electronically signed by STEVEN Headley> 08/08/[address] [facility] Work Phone: [phone]) 315-699004-21-2023 Evaluation note* Encounter Date Diagnosis Assessment Notes Treatment Notes Treatment Clinical Notes Jul, Hyperglycemia due to type 1 diabetes mellitus (ICD-10 - E10.65) [facility] Other 04-07-2023 [place] [id number] CONSULTATION PATIENT NAME: CHIKIS TOBAR : 1965 MED REC NO: [id number] ROOM: 32 ACCOUNT NO: [id number] ADMIT DATE: 07/21/2022 PROVIDER: Ryan Parks MD CONSULT DATE: 07/21/2022 ENDOCRINE CONSULTATION REFERRING PROVIDER: Concepción Lacy DO REASON FOR CONSULTATION: Management of uncontrolled type 1 diabetes. CHIEF COMPLAINT AND HISTORY OF PRESENT ILLNESS: Obtained through the patient and prior history from [facility]. This patient is a 57-year-old female with known history of type 1 diabetes since she was 6 years old and variable A1c. According to her last A1c was 9.2, who was admitted recently at [facility] for syncopal episode, hydrocephalus requiring TYPEWRITER TESTER shunt. There was also fungal infection in the meninges. The patient also has lost weight during her admission and has been on insulin pump in the past with DexCom Continuous Glucose Monitoring. Here she is on Lantus 18 units at bedtime, Humalog coverage starting at 150 and also Humalog 1 unit for 9 gm of carb. Hemoglobin A1c not available for review, we ordered one here. Complication of diabetes include retinopathy. Extensive history was reviewed through the [facility]. Again, initial admission was at [facility] in 05/27/2022, when she was found unresponsive. CAT scan reveals hydrocephalus, multiple enhancement in the anterior sabra medulla at the level of spine. During her stay, her blood sugars have been higher requiring adjustments of the insulin. Endocrinology was consulted at the [facility]. At the time of discharge, the patient needs to follow up in Neurosurgery, Podiatry, Endocrinology, and Ophthalmology as well as Infectious Disease. CURRENT MEDICATIONS: Other than Lantus, Humalog include iron, Lopressor, Neosporin, Protonix, Senokot. PAST MEDICAL HISTORY: Significant for type 1 diabetes, history of asthma, hypertension, history of bladder cancer, multiple admissions with DKA. PAST SURGICAL HISTORY: TYPEWRITER TESTER shunt. FAMILY HISTORY: Essentially unremarkable. PERSONAL AND SOCIAL HISTORY: Reviewed, noncontributory. MEDICATIONS: At the [facility] include calcium, Voltaren, bacitracin, metoprolol, oxycodone, Protonix, Senokot, BAQSIMI as needed, Alessio, Atrovent, iron. ALLERGIES: DEMEROL, FLEXERIL, VERSED. REVIEW OF SYSTEMS: Other than generalized weakness, weight loss, 14-point review of systems is essentially unremarkable. PHYSICAL EXAMINATION: GENERAL: The patient is alert, awake, oriented x3 in no obvious distress. VITAL SIGNS: Pending here from [facility]. HEENT: Pupils equally reactive to light. NECK: Supple. No goiter or thyromegaly was noted. CHEST: Lungs were clear to auscultation bilaterally. No wheezing or crackles were heard. CARDIOVASCULAR: Heart sounds were normal. No murmurs or thrills were present. ABDOMEN: Soft, nonobese. Bowel sounds are present. No organomegaly. EXTREMITIES: Lower extremities reveal no edema. Catheter for ostomy noted. NEUROLOGIC: Showed cranial nerves I through XII were intact. PSYCHIATRIC: Normal affect, cognition. LABORATORY DATA: Reviewed from the [facility]. No recent labs from here. ASSESSMENT: Uncontrolled type 1 diabetes with labile fluctuating glucose, higher blood sugars due to recent infection, history of hydrocephalus, status post TYPEWRITER TESTER shunt, history of bladder cancer, history of fungal infection of the meninges, weight loss, malnutrition. PLAN: Continue with current dose of Lantus 18, Humalog coverage plus Humalog as per carbs. Get a hemoglobin A1c, BMP. We will also get thyroid function test. Avoid hypoglycemia. Long-term A1c goal of 7 or lower. The patient to follow up with director physical after discharge to resume her insulin pump therapy. Reviewed other notes from [facility]. Total time spent was 60 minutes. Thank you for the consult. RYAN PARKS MD SAUL/[email or web address] Doc#: [id number] CC:[facility]04-07-2023 [facility]-20[facility]20[facility]2023 [facility]03-2023 Note [facility]04-02-2023 [facility]-2023 NoteHNO ID: [id number] Author: Interface Note Service: ? Author Type: ? Type: Progress Notes Filed: 07/16/2022 1:52 AM Note Text: Epic Scheduled Downtime: 07/16/2022 1:00:00 AM to 07/16/2022 1:46:00 [facility]04-01-2023 [facility]03-31-2023 NoteHNO ID: [id number] Author: Yuridia Jain RN Service: ? Author Type: Registered Nurse Type: Nursing Progress Note Filed: 07/14/2022 8:11 AM Note Text: Urgent lab received of glucose 511. LIP aware. New orders placed.[facility]03-31-2023 [facility]03-31-2023 Note [facility]03-30-2023 [facility]03-29-2023 [facility]-28-2023 [facility] 07-11-2022 [facility]-28-2023 [facility]03-27-2023 [facility]27-2023 [facility]27-2023 [facility]-27-2023 Note [facility]03-26-2023 [facility]-26-2023 [facility]-25-2023 [facility] 07-08-2022 [facility]-24-2023 [facility]24-2023 [facility]24-2023 [facility]-23-2023 [facility]03-23-2023 Note [facility]03-22-2023 [facility]03-22-2023 [facility]03-21-2023 [facility] 07-04-2022 [facility]-20-2023 [facility]-20-2023 [facility]03-19-2023 [facility]03-19-2023 [facility]03-18-2023 Note [facility]03-18-2023 [facility]03-17-2023 [facility]03-17-2023 [facility] 06-29-2022 [facility]03-16-2023 [facility]03-16-2023 [facility]03-16-2023 [facility]03-16-2023 [facility]03-15-2023 Note [facility]03-15-2023 [facility]03-14-2023 [facility]03-14-2023 [facility] 06-27-2022 [facility]03-13-2023 [facility]03-13-2023 [facility]03-13-2023 [facility]03-13-2023 [facility]03-13-2023 Note [facility]13-2023 [facility]03-13-2023 [facility]12-2023 [facility] 06-25-2022 [facility]2023 [facility]03[facility]12-2023 NoteHNO ID: [id number] Author: Interface Note Service: ? Author Type: ? Type: Progress Notes Filed: 06/25/2022 3:02 AM Note Text: Epic Scheduled Downtime: 06/25/2022 12:30:16 AM to 06/25/2022 1:50:00 [facility]03-11-2023 [facility]03-[facility]-2023 Note [facility]03-11-2023 NoteHNO ID: [id number] Author: Interface Note Service: ? Author Type: ? Type: Progress Notes Filed: 06/24/2022 4:18 AM Note Text: Epic Scheduled Downtime: 06/24/2022 12:00:37 AM to 06/24/2022 4:09:02 [facility]03-10-2023 [facility]03[facility]10-2023 NoteHNO ID: [id number] Author: Alvin Madrid MD Service: Neurosurgery Author Type: Physician Type: Consult Progress Note Filed: 06/23/2022 3:15 PM Note Text: Plan for T5 intradural biopsy Sunday Alvin Madrid [facility]03-10-2023 [facility]03-10-2023 [facility]03-09-2023 [facility]03-09-2023 [facility]03-08-2023 Note [facility]03-08-2023 [facility]03-07-2023 [facility]03-02-2023 History general Narrative - Reported* Type Description Date Medical History DM 1 Medical History OBESITY Medical History ASTHMA Surgical History ORIF R ANKLE FRACTURE 2000 Surgical History RIGHT OOPHERECTOMY FOR CYST Surgical History T5 intradural bx and placement of EVD 06/2022 Surgical History TYPEWRITER TESTER shunt placement Hospitalization History FOR SURGERIES [facility] Other 03-01-2023 History general Narrative - Reported* Type Description Date Medical History DM 1 Medical History OBESITY Medical History ASTHMA Surgical History ORIF R ANKLE FRACTURE 2000 Surgical History RIGHT OOPHERECTOMY FOR CYST Surgical History Right frontal ventriculostomy Hospitalization History FOR SURGERIES [facility] Other 02-23-2023 Miscellaneous Notes* Telephone Encounter - Mik Zapata MD - 06/08/2022 11:21 AM EST Hospital Medicine Transfer Received page for transfer request from [facility] to [facility]: Chikis Tobar is 57 year old female who presented with DKA and found down. She was initially intubated and treated with insulin drip in the ICU and eventually transferred to the regular floor. While she was being worked up at [facility] she was seen to have thoracic and lumbar lesion suspicious for malignancy. 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 She was seen by oncology and neurology at [facility] recommended transfer to tertiary care facility for further evaluation management. She has history of bladder cancer and has urostomy. Case was discussed with our neurosurgeon Dr. Godwin who agreed to see the patient at [place] but wanted patient to be admitted under medicine because of significant comorbidities. No steroids were recommended by neurosurgery team. Patient apparently has generalized weakness but no significant lower extremity weakness or bladder incontinence. Vital signs electrolytes renal function within normal limits per verbal report. Currently blood sugars are controlled with long-acting insulin with resolution of DKA and currently patient is out of the ICU on the regular floor. Reason for transfer:NSG and oncology eval for spinal lesions Accepted to hospital medicine service at 11:20AM on 06/08/22 Mik Zapata MD 11:21 AM documented in [facility]Ad[facility] Evaluation note* Encounter Date Diagnosis Assessment Notes Treatment Notes Treatment Clinical Notes May, Type 1 diabetes mellitus with hyperglycemia (ICD-10 - E10.65) This patient is following a comprehensive diabetic treatment plan. They are checking their feet daily for calluses and nonhealing ulcers. They are being seen for yearly dilated eye examinations. Goals: SBP less than 130, LDL less than 100, FBS less than 140, AC and A1C less than 7%. They are checking their BS daily, will which are reviewed at the office visit. Recommend staying w/ ISS coverage and Basal insulin. May, HTN (hypertension) (ICD-10 - I10) This patient is instructed to consume a healthy, low-fat, low-salt diet. They are also encouraged to continue exercise to achieve/maintain a normal BMI. May, Transitional cell bladder cancer (ICD-10 - C67.9) No s/s recurrence. f/u Urology May, Elevated cholesterol (ICD-10 - E78.00) Diet and exercise with continued statin therapy. May, Weight loss (ICD-10 - R63.4) Supplements daily May, Ileostomy in place (ICD-10 - Z93.2) May, Insulin long-term use (ICD-10 - Z79.4) May, Other Diet and exerci se with continued statin therapy. [facility] Other 01-17-2023 History of Present illness Narrative* Peterson Gonsalez MD - 05/02/2022 1:40 PM EST [facility] ESTABLISHED PATIENT OFFICE VISIT REASON FOR VISIT: Follow up HPI 56 year old female presenting for follow-up of invasive bladder cancer for which she previously underwent robotic radical cystectomy, bilateral pelvic lymph node dissection, and intracorporeal ileal conduit urinary diversion in April,. She subsequently presented and was hospitalized with SBO and underwent ex lap, reduction of volvulus, and right ureteral reimplantation into ileal conduit with placement of a right ureteral stent (7Fr x 24cm JJ) 12/16/[address] Gong and myself. 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 CTU 04/25/2022 - CHRISTINE CT Chest 04/25/2022 - CHRISTINE Today, patient reports losing more weight recently. She states she was up to 121 lbs, but was hospitalized locally with N/V although NGT placement was not required at that time. More recently her weight is now down to 105 lbs in office today. She states she was 195 lbs prior to cystectomy. She states she has a increased appetite since surgery. States emesis is liquid. Endorses daily bowel movements. She has recently moved in with a friend that is helping her with increased calorie intake. Has [employer], but has not followed up yet. She has been doing PT ordered with Dr. Gong. She does upper and lower body PT with this. Endorses some leaking from her stoma recently. PATHOLOGY: Ureter resection 12/17/2021: A. Ureter, right, segmental resection: - Segment of benign ureter with marked edema, acute inflammation, and epithelial denudation. Cystectomy 04/20/2021: FINAL DIAGNOSIS 1. Left distal ureter, excision (A): Ureter, negative for malignancy. 2. Right distal ureter, excision (B): Ureter, negative for malignancy. 3. Bladder, uterus, bilateral fallopian tubes, left ovary, anterior vaginal wall, anterior exenteration (C): -No residual tumor. -Prior biopsy site changes. -Cervix with mild chronic inflammation and nabothian cysts. -Inactive endometrium with adenomyosis. -Bilateral fallopian tubes and ovary, negative for malignancy. -Margins of resection are negative for malignancy. -See synoptic report. 4. Left distal ureter, excision (D): Ureter, negative for malignancy. 5. Right distal ureter margin, excision (E): Ureter, negative for malignancy. 6. Bilateral pelvic lymph nodes, excision (F): Seven lymph nodes, negative for malignancy (0/7). 7. Right common iliac lymph nodes, excision (G): One lymph node, negative for malignancy (0/1). LABS: Creatinine Date Value Ref Range Status 04/25/2022 0.48 (L) 0.58 - 0.96 mg/dL Final 01/14/2022 0.51 (L) 0.58 - 0.96 mg/dL Final 01/13/2022 0.51 (L) 0.58 - 0.96 mg/dL Final Creatinine (POCT) Date Value Ref Range Status 04/25/2022 0.50 (A) 0.58 - 1.22 mg/dL Final URINALYSIS: pH, Arterial Date Value Ref Range Status 01/09/2022 7.40 7.35 - 7.45 Final Specific [place], Ur Date Value Ref Range Status 01/09/2022 1.011 1.005 - 1.030 Final Glucose, Urine Date Value Ref Range Status 01/09/2022 Negative Negative Final Bilirubin, Urine Date Value Ref Range Status 01/09/2022 Negative Negative Final Ketones, Urine Date Value Ref Range Status 01/09/2022 Trace (A) Negative Final Hemoglobin/Blood,Ur Date Value Ref Range Status 01/09/2022 1+ (A) Negative Final Protein, Urine Date Value Ref Range Status 01/09/2022 1+ (A) Negative Final Nitrites Date Value Ref Range Status 01/09/2022 1+ (A) Negative Final WBC, Urine Date Value Ref Range Status 01/09/2022 >25 /HPF (A) 0-5 /HPF Final IMAGING: CTU 04/25/2022 IMPRESSION: NO NEPHROLITHIASIS. LEFT NEPHROLITHIASIS. NO CT EVIDENCE OF ACUTE INTRA-ABDOMINAL PROCESS. NO CT EVIDENCE OF METASTASIS IN THE ABDOMEN AND PELVIS. CT Chest 04/25/2022 IMPRESSION: NO CT EVIDENCE OF METASTASIS IN THE THORAX. NO SIGNIFICANT INTERVAL CHANGE SINCE 03/16/2021. ALLERGIES: ALLERGIES Allergen Reactions Demeral [Meperidine] GI Upset Nausea, pt states room spins Flexeril [Cyclobenz* Hives Versed [Midazolam] Mental Status Change MEDICATIONS: Current Outpatient Medications Medication Sig iv contrast (will be provided with radiology test) CT Urogram WO/W Inject, intravenously, once for 1 dose.No IV access, insert saline lock prior to the beginning of sedation, infusion, injection of imaging exam. Discontinue saline lock post exam. If Pt. has a central line or IVAD, may access for administration according to line specific nursing protocol. Once exam is complete flush line and de-access according to line specific nursing protocol in the CT contrast administration guidelines link. 0.9 % sodium chloride (NACL 0.9%) infusion Inject 5-30 mL/hr intravenously one time only for 1 dose. Administer at rate defined per CT contrast administration specifications. To be provided with radiology test. iv contrast (will be provided with radiology test) CT Chest W -Inject, intravenously, once for 1 dose.No IV access, insert saline lock prior to the beginning of sedation, infusion, injection of imaging exam. Discontinue saline lock post exam. If Pt. has a central line or IVAD, may access for administration according to line specific nursing protocol. Once exam is complete flush line and de-accessaccording to line specific nursing protocol in the CT contrast administration guidelines link. insulin aspart U-100 (NOVOLOG) 100 unit/mL Inject 8 Units subcutaneously every 4 hours. Inject every 4 hours. Hold for BG <100 or if tube feeds are held ADMINISTER CORRECTIONAL INSULIN REGARDLESS OF MEAL OR NUTRITION INTAKE Custom Scale If Blood Glucose (mg/dL) is Less than 70 Initiate Hypoglycemia protocol 70-157 0 units 158-195 1 units 196-233 2 units 234-271 3 units 272-309 4 units 310-347 5 units 348-386 6 units Greater than 387 7 units and Notify Provider Notify provider if 2 consecutive blood glucose values in the previous 24 hours are greater than 250mg/mL and there have been no changes to the insulin regimen in the previous 24 hours. insulin glargine (LANTUS) 100 unit/mL injection Inject 25 Units subcutaneously every morning. nutritional supplements 0.07 gram-1.5 kcal/mL liqd 50 mL/hr by FEEDING TUBE route every 24 hours. Water flush of 100 ml of water every 6 hours with tube feeds. Flush corpak ever 6 hours with 20ml of water L.acid-L.casei-B.bif-B.mary beth-FOS (PROBIOTIC BLEND) 2 billion cell-50 mg cap Take 1 capsule by mouth once daily. ondansetron (ZOFRAN) 4 mg tablet Take 1 tablet by mouth every 8 hours as needed for nausea/vomiting. sulfamethoxazole-trimethoprim (BACTRIM DS,SEPTRA DS) 800-160 mg per tablet Take 1 tablet by mouth once daily. acetaminophen (TYLENOL) 325 mg tablet Take 2 tablets by mouth every 6 hours as needed for pain. omeprazole (PRILOSEC) 40 mg capsule Take 1 capsule by mouth once daily. scopolamine (TRANSDERM-SCOP) patch 1.5 mg/72 hr (1 mg over 3 days) Apply 1 Patch as directed every 72 hours. aspirin 325 mg tablet Take 1 tablet by mouth q 24 HR. You may stop that Aspirin 81mg and resume theAspirin 325mg 10 days after surgery if your urine is clear. (Patient not taking: No sig reported) metoprolol succinate ER (TOPROL XL) 100 mg Take 100 mg by mouth q 12 HR. glucagon (BAQSIMI) 3 mg/actuation nasal spray Use in the nose as needed. ALESSIO 180 MG TAB Take by mouth. PRN ALBUTEROL 90 MCG/ACTUATION AEROSOL INHALER Use as directed four(4) times daily. IPRATROPIUM BROMIDE 0.06 % NASAL SPRAY AEROSOL Use in the nose. No current facility-administered medications for this visit. HISTORIES PAST MEDICAL HISTORY Diagnosis Date Asthma 02/16/2021 Bladder cancer (HCC) Diabetes mellitus type 1 (HCC) 04/13/2021 HTN (hypertension) 02/16/2021 Neoplasm of bladder 02/16/2021 Obesity 02/16/2021 Palpitations 02/16/2021 Type 2 diabetes mellitus without complication, with long-term current use of insulin (HCC) DM Type 1- diagnosed at age 6 PAST SURGICAL HISTORY Procedure Laterality Date CYSTO.PANENDO 05/25/2021 EXPLORATORY OF ABDOMEN 12/17/2021 Reduction of small-bowel volvulus PAST SURGICAL HISTORY OF right ovary removed PAST SURGICAL HISTORY OF ORIF right ankle PAST SURGICAL HISTORY OF 02/18/2021 TURBT REMOVAL OF BLADDER & NODES VAGINAL HYSTERECTOMY Social History Tobacco Use Smoking status: Never Smokeless tobacco: Never Vaping Use Vaping Use: Never used Substance Use Topics Alcohol use: Not Currently Drug use: Never REVIEW OF SYSTEMS General: Weight loss, SEE HPI Genitourinary: See HPI The remainder of the ROS was reviewed and negative. PHYSICAL EXAMINATION BP 137/84 Pulse (!) 135 Resp 15 Wt 47.2 kg (104 lb) BMI 16.79 kg/m General: Cachectic, frail appearing Abdominal: stoma pink and well perfused, no parastomal hernia or stomal stenosis, no stomal retraction. 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 Remains CHRISTINE of surveillance imaging. Repeat surveillance scans in one year. Remains severely underweight. Sees PT. Endorses some back pain. Wishes to see palliative care, willplace consult. She has seen a [employer], recommend she follow up with them as well. Will refer to stoma nurses to assess issues with ostomy appliance. History of volvulus s/p ex lap, reduction of volvulus, and right ureteral reimplantation Still with ongoing weight loss despite no evidence of SBO on imaging, per my review no suggestion of SMA syndrome. I will review with Dr. Gong, she is working with nutrition to improve oral intake but she is severely cachectic and may require further nutritional support to address this. Follow up with [facility] in 3 months. Repeat imaging in one year. I spent a total of 40 minutes on the date of the service which included preparing to see the patient, [id number] patient care, and completing clinical documentation. By signing my name below, I, Hector Fisher, attest that this documentation has been prepared under the direction and in the presence of Dr. Gonsalez Electronically signed, Jeny Hoang STAFF PHYSICIAN NOTE OF PERSONAL INVOLVEMENT IN CARE The above noted history, physical, assessment and plan were reviewed with the provider and criticalportions of the H&P were confirmed. I evaluated and examined the patient and agree with the plan above and provided direct supervision of the above provider during this patient's care. Peterson Gonsalez MD May 02, 2022 documented in this encounterAdams County [facility]01-10-2023 NoteHNO ID: [id number] Author: SERENITY Murillo Service: Radiology Author Type: Technologist Type: Progress Notes Filed: 04/25/2022 10:18 AM Note Text: Radiology Service Progress Note PATIENT NAME: Chikis Tobar DATE OF SERVICE: April 25, 2022 TIME: 10:18 AM PATIENT IDENTITY VERIFICATION COMPLETED USING TWO (2) IDENTIFIERS: Name and Date of confirmed by patient verbally. FALL SCREENING: Has the patient had 2 falls in the last year or 1 fall with injury or currently using an Ambulatory Assistive Device (Walker, Cane, Wheelchair, Crutches, etc.)? No PATIENT GENDER DATA: Female. status: : No status: NO. PATIENT RELEVANT IMPLANT DATA REVIEWED: Not Applicable RADIOLOGY DEPARTMENT: CT; Exam(s) Completed: Abdomen/Pelvis and Chest PERIPHERAL IV DATA: Site assessment: Clean,Dry and Intact, Site disposition Discontinued SIGNED BY: SERENITY MURILLO April 25, 2022 10:18 AMBlue [id number] History of Present illness Narrative* Andrew Gong MD - 03/13/2022 3:43 PM EST Patient returns in follow-up. Overall, she has done well from the abdominal standpoint. She is eating 3 meals a day and only has had nausea on one occasion. Due to hypoglycemia, on 1 occasion she went to the emergency room. CAT scan performed at outside hospital, and localized dilation of the third portion of the duodenum was noted just proximal to the superior mesenteric artery. With repeated questioning, she does not complain of nausea or emesis similar to what she was having when in the hospital and her possible SMA syndrome was diagnosed. Her weight has been stable at 120 pounds. Her primary complaint today is low back pain and anterior thigh pain and weakness. She states this has been an issue ever since her robotic cystectomy procedure in April of this year. She has not had therapy for this, nor has it been evaluated in any way. Exam: No acute distress Abdomen: Soft, nontender. Incision healing well. Extremities: Strength of lower extremities seems to be 4+ to 5/5 throughout. Negative straight leg raise. No edema. Outside CAT scan report reviewed, and images are being loaded into our system. A/P: Overall satisfactory course. 1. Possible SMA syndrome. Per outside CAT scan, this is still a possibility, although she is maintaining a stable weight. I recommend protein shake between meals in an attempt to gain weight, and recommend she see Dr. Urias for outpatient evaluation. 2. Back pain and thigh pain. The thigh pain is not posterior, so doubt sciatica. Recommend physicaltherapy evaluation, and I have provided contact information for neurology and pain management should symptoms persist. She understands and agrees with this plan. Andrew Gong MD documented in this encounterAdams County [facility] Center11-28-2022 Nurse Note* Savanah Castro MA - 03/13/2022 1:07 PM EST What is the reason for your visit today? Established patient presents for post op. Who is your referring physician? Are you having poor oral intake? NO Have you had unintentional weight loss of 15 lbs/7 Kg in the last 3-6 months? NO documented in this encounterAdams County [facility] Center10-28-2022 History of Present illness Narrative* Andrew Gong MD - 02/10/2022 4:50 PM EDT Returns in follow-up. Immediately after last visit, her feeding tube became clogged. As result, she increased her oral intake has been eating 3 meals a day of GI soft. She has been tolerating this with no nausea or vomiting. She is moving her bowels and has no abdominal pain. Exam: No acute distress. Weight is stable. Abdomen is soft and nontender. A/P: Satisfactory course. GI function returning and tolerating diet, so clogged Corpak feeding tubeis removed today. Follow-up in 1 month to assess progress. Andrew Gong MD documented in this encounterAdams County [facility] Center10-24-2022 History of Present illness Narrative* Andrew Gong MD - 02/06/2022 1:45 PM EDT Patient returns in follow-up after inpatient admission/operation for small bowel volvulus. This wasapproximately 8 months after laparoscopic radical cystectomy with ileal conduit reconstruction. The small bowel was de volvulized, and the right ureter had to be reimplanted into the conduit. Herhospital course was complicated by difficult glucose control which improved. However, after discharge, she was readmitted for significant hyperglycemia. The insulin pump was stopped, and the hyperglyc emia/diabetes handled with regular manual injections. This resolve the matter rather quickly. 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 It was theorized that after her cystectomy/ileal conduit, she lost so much weight that the SMA syndrome began. She had a Corpak for tube feeds placed, and the plan has been to continue tube feeds and slowly advance diet at home. As of this office visit, she has been eating some full liquids and soft foods, although on a fairlylimited basis. She says she has gained 3 to 4 pounds since discharge. Exam: No acute distress. Breathing comfortably on room air Abdomen: Flat, soft, nontender, wound well-healed. A/P: Overall satisfactory course. She is told to begin increasing oral intake to include soft solidfood and monitor for any early satiety or nausea. We will help her follow this by telephone. Second, we will set up appointment with [facility] endocrinology for her at her request. We will arrange follow-up hopefully for tube removal when she begins to tolerate more solid food. Andrew Gong MD documented in this encounterAdams County [facility] Center10-18-2022 Miscellaneous Notes* Telephone Encounter - Katiana Whitmore RN - 01/31/2022 3:[address] Gong recommends patient eat protein shakes and GI soft diet and to see how it goes. Patient verbalized understanding of same and is in agreement with plan. She will call with an update * Telephone Encounter - Katiana Whitmore RN - 01/31/2022 11:23 AM EDT Spoke with patient who called because her feeding tube is no longer functioning. Pump is now alarming that there is a clog. Will discuss with Dr. Gong and call her back. * Telephone Encounter - Katiana Whitmore RN - 01/31/2022 10:48 AM EDT Attempted to call. No answer or voicemail. * Telephone Encounter - Thi Rodriges Pss - 01/31/2022 10:05 AM EDT Patient called and left message regarding non functioning feeding tube return call to [phone] documented in this encounterAdams County [facility] Center10-18-2022 Miscellaneous Notes* Telephone Encounter - Shelbi Pérez - 01/31/2022 2:57 PM EDT Spoke with patient regarding appointments, patient confirmed all appointments documented in this encounterAdams County Regional Medical Center10-17-2022 History of Present illness Narrative* Peterson Gonsalez MD - 01/30/2022 10:00 AM EDT [facility] ESTABLISHED PATIENT OFFICE VISIT REASON FOR VISIT: Follow up for invasive bladder cancer HPI 56 year old female presenting for follow-up of h/o invasive bladder cancer for which she previouslyunderwent robotic radical cystectomy, bilateral pelvic lymph node dissection, and intracorporeal ileal conduit urinary diversion in April,. She subsequently presented and was hospitalized with SBO and underwent ex lap, reduction of volvulus, and right ureteral reimplantation into ileal conduit with placement of a right ureteral stent (7Fr x 24cm JJ) 12/16/[address] Gong and myself. 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 She reports doing well since hospital discharge with a few pounds weight gain, also tried some solid food which she tolerated without N/V. Denies issues pouching stoma, stent is visible per stoma. PATHOLOGY: Ureter resection 12/17/2021: A. Ureter, right, segmental resection: - Segment of benign ureter with marked edema, acute inflammation, and epithelial denudation. LABS: Creatinine Date Value Ref Range Status 01/14/2022 0.51 (L) 0.58 - 0.96 mg/dL Final 01/13/2022 0.51 (L) 0.58 - 0.96 mg/dL Final 01/12/2022 0.48 (L) 0.58 - 0.96 mg/dL Final 01/11/2022 0.58 0.58 - 0.96 mg/dL Final URINALYSIS: pH, Arterial Date Value Ref Range Status 01/09/2022 7.40 7.35 - 7.45 Final Specific [place], Ur Date Value Ref Range Status 01/09/2022 1.011 1.005 - 1.030 Final Glucose, Urine Date Value Ref Range Status 01/09/2022 Negative Negative Final Bilirubin, Urine Date Value Ref Range Status 01/09/2022 Negative Negative Final Ketones, Urine Date Value Ref Range Status 01/09/2022 Trace (A) Negative Final Hemoglobin/Blood,Ur Date Value Ref Range Status 01/09/2022 1+ (A) Negative Final Protein, Urine Date Value Ref Range Status 01/09/2022 1+ (A) Negative Final Nitrites Date Value Ref Range Status 01/09/2022 1+ (A) Negative Final WBC, Urine Date Value Ref Range Status 01/09/2022 >25 /HPF (A) 0-5 /HPF Final IMAGING: KUB 01/13/22: IMPRESSION: Tip of the Corpak projects over the expected location of the fourth segment of the duodenum. The wire remains within the tube. ALLERGIES: ALLERGIES Allergen Reactions Demeral [Meperidine] GI Upset Nausea, pt states room spins Flexeril [Cyclobenz* Hives Versed [Midazolam] Mental Status Change MEDICATIONS: Current Outpatient Medications Medication Sig insulin aspart U-100 (NOVOLOG) 100 unit/mL Inject 8 Units subcutaneously every 4 hours. Inject every 4 hours. Hold for BG <100 or if tube feeds are held ADMINISTER CORRECTIONAL INSULIN REGARDLESS OF MEAL OR NUTRITION INTAKE Custom Scale If Blood Glucose (mg/dL) is Less than 70 Initiate Hypoglycemia protocol 70-157 0 units 158-195 1 units 196-233 2 units 234-271 3 units 272-309 4 units 310-347 5 units 348-386 6 units Greater than 387 7 units and Notify Provider Notify provider if 2 consecutive blood glucose values in the previous 24 hours are greater than 250mg/mL and there have been no changes to the insulin regimen in the previous 24 hours. insulin glargine (LANTUS) 100 unit/mL injection Inject 25 Units subcutaneously every morning. nutritional supplements 0.07 gram-1.5 kcal/mL liqd 50 mL/hr by FEEDING TUBE route every 24 hours. Water flush of 100 ml of water every 6 hours with tube feeds. Flush corpak ever 6 hours with 20ml of water L.acid-L.casei-B.bif-B.mary beth-FOS (PROBIOTIC BLEND) 2 billion cell-50 mg cap Take 1 capsule by mouth once daily. ondansetron (ZOFRAN) 4 mg tablet Take 1 tablet by mouth every 8 hours as needed for nausea/vomiting. sulfamethoxazole-trimethoprim (BACTRIM DS,SEPTRA DS) 800-160 mg per tablet Take 1 tablet by mouth once daily. acetaminophen (TYLENOL) 325 mg tablet Take 2 tablets by mouth every 6 hours as needed for pain. omeprazole (PRILOSEC) 40 mg capsule Take 1 capsule by mouth once daily. scopolamine (TRANSDERM-SCOP) patch 1.5 mg/72 hr (1 mg over 3 days) Apply 1 Patch as directed every 72 hours. aspirin 325 mg tablet Take 1 tablet by mouth q 24 HR. You may stop that Aspirin 81mg and resume theAspirin 325mg 10 days after surgery if your urine is clear. (Patient not taking: No sig reported) metoprolol succinate ER (TOPROL XL) 100 mg Take 100 mg by mouth q 12 HR. glucagon (BAQSIMI) 3 mg/actuation nasal spray Use in the nose as needed. ALESSIO 180 MG TAB Take by mouth. PRN ALBUTEROL 90 MCG/ACTUATION AEROSOL INHALER Use as directed four(4) times daily. IPRATROPIUM BROMIDE 0.06 % NASAL SPRAY AEROSOL Use in the nose. No current facility-administered medications for this visit. HISTORIES PAST MEDICAL HISTORY Diagnosis Date Asthma 02/16/2021 Bladder cancer (HCC) Diabetes mellitus type 1 (HCC) 04/13/2021 HTN (hypertension) 02/16/2021 Neoplasm of bladder 02/16/2021 Obesity 02/16/2021 Palpitations 02/16/2021 Type 2 diabetes mellitus without complication, with long-term current use of insulin (HCC) DM Type 1- diagnosed at age 6 PAST SURGICAL HISTORY Procedure Laterality Date CYSTO.PANENDO 05/25/2021 EXPLORATORY OF ABDOMEN 12/17/2021 Reduction of small-bowel volvulus PAST SURGICAL HISTORY OF right ovary removed PAST SURGICAL HISTORY OF ORIF right ankle PAST SURGICAL HISTORY OF 02/18/2021 TURBT REMOVAL OF BLADDER & NODES VAGINAL HYSTERECTOMY Social History Tobacco Use Smoking status: Never Smokeless tobacco: Never Vaping Use Vaping Use: Never used Substance Use Topics Alcohol use: Not Currently Drug use: Never REVIEW OF SYSTEMS General: SEE HPI Genitourinary: See HPI The remainder of the ROS was reviewed and negative. PHYSICAL EXAMINATION BP 138/68 Pulse 102 Temp 36.6 C (97.9 F) Resp 14 Wt 56.4 kg (124 lb 6.4 oz) BMI 20.08 kg/m General: Well appearing, alert, in no acute distress, and well-hydrated, well nourished Integumentary: Skin color, texture, turgor normal, no suspicious rashes or lesions Abdominal: Soft, nd, nt. Stoma red and well-perfused, no stenosis or parastomal hernia, distal coilof stent visible per stoma Neurologic: Normal gait, focal neurologic deficits Genitourinary: FEMALE EXAM: Exam NOT Indicated PROBLEMS: 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 CHRISTINE, will plan for surveillance imaging again at 1 year post-op. History of volvulus s/p ex lap, reduction of volvulus, and right ureteral reimplantation due to ureteral avulsion at time of surgery Stent removed in office today with abx prophylaxis administered prior. Follow-up with Dr. Gong this afternoon. Will coordinate surveillance imaging after discussing with Dr. Gong, planning for April. I spent a total of 30 minutes on the date of the service which included preparing to see the patient, [id number] patient care, completing clinical documentation, and communicating with other HCPs (not separately reported). STAFF PHYSICIAN NOTE OF PERSONAL INVOLVEMENT IN CARE The above noted history, physical, assessment and plan were reviewed with the provider and criticalportions of the H&P were confirmed. I evaluated and examined the patient and agree with the plan above and provided direct supervision of the above provider during this patient's care. Peterson Gonsalez MD January 30, 2022 documented in this encounterAdams County [facility] Center10-17-2022 Nurse Note* Zarina Norton RN - 01/30/2022 9:53 AM EDT Rocaephin 1 GM IM per order prior to stent removal. . Ileal conduit Ostomy appliance removed. Stent is visible. Stoma cleansed with dry sterile gauze. Sterile field created. Dr Gonsalez in to remove stent. Patient tolerated well. New appliance applied and attached to drainage tubing. documented in this encounterAdams County [facility] Center10-14-2022 Miscellaneous Notes* Telephone Encounter - Shelbi Pérez - 01/27/2022 9:27 AM EDT Spoke to patient, reminder call for appointment on 01/30, patient confirmed appointment Called patient back, she is able to come at 9:30 on 01/30 documented in this encounterAdams County [facility] Center10-07-2022 Miscellaneous Notes* Telephone Encounter - Greyson Ramirez - 01/20/2022 2:20 PM EDT PATIENT INFORMATION Record ID: [id number] Patient Name: [facility]: [place]: [facility] [place] Attending: Andrew Gong Center: General Surgery INSTRUCTIONS SN to remind patient of next upcoming appointment date, time, location All Clear SURVEY INFORMATION Medical/Nurse Licensed Professional Counselor: Greyson Patel 1. Your discharge instructions are important in guiding you through the recovery process. Is there anything I could help you clarify on your discharge instructions? (Standard Question) No, no clarification needed 2. We encourage a follow up appointment with your physician. Do you have one scheduled? If not; What is the name of the doctor you should be seeing for your follow-up care? (Standard Question) Yes 3. Many patients have concerns about their medications once they are home. Do you have any questions about getting or taking your medications? (Standard Question) No 4. Do you have any new or worsening symptoms? (Standard Question) No documented in this encounterAdams County [facility] Center10-05-2022 Miscellaneous Notes* Telephone Encounter - Lalita Muñoz Sec - 01/18/2022 10:29 AM EDT Spoke to patient confirmed OV with Dr. Gonsalez on 01/30 at [facility] and also the office visit with Dr. Andrew Gong to follow at 3:40 pm. documented in this encounterAdams County Regional Medical Center09-25-2022 History and physical note Author Jayashree Watts [facility] January 08, 2022 7:27pm Note Date/Time January 08, 2022 3:58pm [facility] [address] [place] [address] Hospitalist H&P Signed Patient: Chikis Tobar MR#: [id number] : 1965 Acct:[id number] Age/Sex: 56 / F Adm Date: 2 Loc: Room: [address] [place] [address] Type: ADM IN Attending Dr: Jayashree Watts MD Copies to: DO Jayashree Goins MD~ HPI DATE OF EXAMINATION: 01/08/22 CHIEF COMPLAINT: Confusion/agitation HISTORY OF PRESENT ILLNESS: 56 years old female was admitted for agitation confusion and hyperglycemia I did see the patient on the floor in 4 N. The patient is confused and was not reliable historian. The history was obtained from the patient's brother who wasat the bedside. The patient was diagnosed with bladder cancer in April 2021. At that time shehad a bladder resection with ileal conduit at [facility]. Per family she is cured of her disease. 3 days ago the patient was discharged from [facility] where she had open laparotomy due to twisted bowel . She went home and her blood sugars was over 500. Patient does have underlying history of diabetes type 1 and has insulin pump. She went to [facility] where she was treated. It seems like the patient was admitted to the hospital. On Sunday which is yesterday she went back home. However she was quite weak, confused, agitated. To the family she complained of lower back pain and abdominal pain. No reported nausea nor vomiting. She has not had bowel movement for 4 days. No reported shortness of breath or cough. She does have insulin pump but it seems like its not working. Blood sugars werereading 300-500 at home. Review of Systems Review of Systems Unobtainable due to mental status PMFSH Vaccinated for COVID-19?: Yes Medical History Asthma Bladder cancer Diabetes Surgical History History of bladder surgery BLADDER REMOVED History of ileal conduit History of open reduction and internal fixation (ORIF) procedure RIGHT ANKLE, HARDWARE REMOVED Hx of hysterectomy Family History (Updated 05/01/21 @ 02:04 by Ruddy Liu MD) Other HTN (hypertension) Social History Smoking Status: Never smoker Substance Use Type: None Meds Medications and Allergies Allergies cyclobenzaprine [From Flexeril] Allergy (Verified 01/08/22 03:59) Rash meperidine [From Demerol] Allergy (Verified 01/08/22 03:59) Dizziness midazolam [From Versed] Allergy (Verified 01/08/22 03:59) Agitated Home Medications acetaminophen 500 mg tablet 1,000 mg PO Q6HR PRN Pain 04/30/21 [History Confirmed 04/30/21] docusate sodium 100 mg capsule 100 mg PO BID 04/30/21 [History Confirmed 04/30/21] enalapril maleate 20 mg tablet (Vasotec) 20 mg PO DAILY 04/30/21 [History Confirmed 04/30/21] ibuprofen 600 mg tablet 800 mg PO Q6HR PRN Pain 04/30/21 [History Confirmed 04/30/21] insulin aspart U-100 100 unit/mL subcutaneous solution (Novolog U-100 Insulin aspart) See Rx Instructions .Route .COMPLEX 04/30/21 [History Confirmed 06/06/21] metoprolol succinate 100 mg tablet,extended release 24 hr (Toprol XL) 100 mg PO BID 04/30/21 [History Confirmed 04/30/21] ondansetron 8 mg disintegrating tablet 8 mg PO Q8HR 04/30/21 [History Confirmed 01/08/22] magnesium hydroxide 400 mg/5 mL oral suspension (Milk of Magnesia) 10 ml PO QID PRN constipation #355 mL 05/05/21 [Rx] metoclopramide HCl 10 mg tablet (Reglan) 10 mg PO Q6H PRN nausea 5 days #20 tabs 05/05/21 [Rx] oxycodone-acetaminophen 5 mg-325 mg tablet 1 tab PO Q6H PRN breakthrough pain, severe 5 days #20 tabs 05/05/21 [Rx Confirmed 01/08/22] vancomycin 125 mg capsule 125 mg PO Q6H 10 days #40 caps 06/10/21 [Rx] Exam Physical Exam Vital Signs: Temp Pulse Resp BP Pulse Ox O2 Del Method 36.6 C 132 H 20 142/65 H 100 Room Air 01/08/22 12:50 01/08/22 12:50 01/08/22 12:50 01/08/22 12:50 01/08/22 12:50 01/08/22 12:50 Narrative: The patient has been seen and examined in 4 N. General -patient appears to be quite confused and agitated. She was able to respond to simple commands such as opening the eyes, telling her name and squeezing my hands, however she was not able to elaborate. She did not appear to be in respiratory distress, she was on 2 L saturating in high 90s HEENT -dry l oropharyngeal mucosa without any ulcers or exudates with Dobbhoff catheter noted Cardiovascular -S1 plus S2, with regular rate, without murmurs but tachycardia Pulmonary -clear to auscultation bilaterally Gastrointestinal -abdomen is soft, nondistended, ileal conduit noted, draining clear urine, however abdomen is diffusely tender without rigidity without rebound d Genitourinary -in the lower back Musculoskeletal -no significant joint abnormality Neurological -no focal Skin -no significant ulcers, no rash noted Extremities - no edema in bilateral lower extremities noted Psychiatry -confused Laboratory work up, imaging studies reviewed EKG pending Previous records in the computer system reviewed CT scan of the abdomen pelvis with contrast Status post gallbladder removal with ileal conduit surgery. Right sided ureteral stent is noted extending into the ileal conduit and there is associated hydronephrosis. Subcentimeter low attenuating lesions involving the left kidney, too small for further characterization, abdominal wall postsurgical change Results Lab Results Labs: Laboratory Last Values Corrected WBC 13.6 X10E3/uL (3.8-11.6) H 01/08/22 04:15 Uncorrected WBC Count 13.6 x10E3/uL (4.5-11.0) H 01/08/22 04:15 RBC 3.19 x10E6/uL (3.60-5.00) L 01/08/22 04:15 Hgb 9.0 g/dL (11.8-15.4) L 01/08/22 04:15 Hct 28.3 % (34.0-46.4) L 01/08/22 04:15 MCV 88.5 fl (80-100) 01/08/22 04:15 MCH 28.2 pg (24.7-34.3) 01/08/22 04:15 MCHC 31.8 g/dL (32.0-35.0) L 01/08/22 04:15 RDW 17.4 % (11.9-15.3) H 01/08/22 04:15 Plt Count 751 x10E3/uL (150-450) H 01/08/22 04:15 MPV 7.0 fl (6.3-10.7) 01/08/22 04:15 Neut % (Auto) 83.2 % (.) 01/08/22 04:15 Lymph % (Auto) 8.6 % (.) 01/08/22 04:15 Boyd % (Auto) 7.2 % (.) 01/08/22 04:15 Eos % (Auto) 0.2 % (.) 01/08/22 04:15 Baso % (Auto) 0.8 % (.) 01/08/22 04:15 Neut # (Auto) 11.3 x10E3/uL (1.8-7.7) H 01/08/22 04:15 Lymph # (Auto) 1.2 x10E3/uL (1.00-4.8) 01/08/22 04:15 Boyd # (Auto) 1.0 x10E3/uL (0.0-0.8) H 01/08/22 04:15 Eos # (Auto) 0.0 x10E3/uL (0.0-0.45) 01/08/22 04:15 Baso # (Auto) 0.1 x10E3/uL (0.0-0.2) 01/08/22 04:15 Nucleated RBC % (auto) 0.0 % (0-0.5) 01/08/22 04:15 Sample Site Venous 01/08/22 15:37 VBG pH 7.11 (7.32-7.43) L* 01/08/22 15:37 VBG pCO2 24.5 mmHg (38.0-50.0) L 01/08/22 15:37 VBG pO2 34.6 mmHg (35.0-45.0) L 01/08/22 15:37 VBG HCO3 7.6 mmol/L (23.0-29.0) L 01/08/22 15:37 VBG Total CO2 8.4 mmol/L (24.0-29.0) L 01/08/22 15:37 VBG O2 Saturation 51.7 % (73.0-76.0) L* 01/08/22 15:37 VBG O2 Content 3.1 mmol/L (6.6-9.7) L 01/08/22 15:37 VBG Base Excess -20.2 mmol/L (-3.0-3.0) L 01/08/22 15:37 FiO2 Na % 01/08/22 15:37 Critical Value 01/08/22 15:37 PHA Creatinine Clear 66.61 01/08/22 04:15 Sodium 132 mmol/L (136-146) L 01/08/22 04:15 Potassium 3.5 mmol/L (3.5-5.1) 01/08/22 04:15 Chloride 98 mmol/L (95-114) 01/08/22 04:15 Carbon Dioxide 21.8 mmol/L (22.0-30.0) L 01/08/22 04:15 Anion Gap 15.7 mEq/L (6.0-15.0) H 01/08/22 04:15 BUN 19 mg/dL (9-23) 01/08/22 04:15 Creatinine 0.82 mg/dL (0.44-1.03) 01/08/22 04:15 Est GFR ( Amer) > 60 mL/Min 01/08/22 04:15 Est GFR (Non-Af Amer) > 60 mL/Min 01/08/22 04:15 Glucose 221 mg/dL (70-100) H 01/08/22 04:15 POC Glucose 336 mg/dl 01/08/22 08:15 POC Glucose Comment 01/08/22 08:15 POC Glucose Comment Cleaned meter 01/08/22 08:15 Lactic Acid 0.9 mmol/L (0.5-2.2) 01/08/22 06:19 Calcium 9.2 mg/dL (8.2-10.2) 01/08/22 04:15 Phosphorus 2.7 mg/dL (2.5-4.6) 01/08/22 04:15 Total Bilirubin 0.6 mg/dL (0.3-1.2) 01/08/22 04:15 AST 17 U/L (10-42) 01/08/22 04:15 ALT 19 U/L (10-60) 01/08/22 04:15 Alkaline Phosphatase 92 U/L (32-92) 01/08/22 04:15 Total Protein 6.5 gm/dL (6.1-7.9) 01/08/22 04:15 Albumin 2.9 gm/dL (3.2-5.5) L 01/08/22 04:15 Globulin 3.6 gm/dL 01/08/22 04:15 Albumin/Globulin Ratio 0.8 01/08/22 04:15 Lipase 20.0 U/L (22-51) L 01/08/22 04:15 Urine Color Yellow (Yellow) 01/08/22 05:08 Urine Appearance Turbid (Clear) A 01/08/22 05:08 Urine pH 7.5 (5.0-9.0) 01/08/22 05:08 Ur Specific [place] 1.011 (1.001-1.030) 01/08/22 05:08 Urine Protein 30 mg/dL (Negative) H 01/08/22 05:08 Urine Glucose (UA) Normal mg/dL (Normal) 01/08/22 05:08 Urine Ketones Trace (Negative) H 01/08/22 05:08 Urine Occult Blood Trace (Negative) H 01/08/22 05:08 Urine Nitrite Negative (Negative) 01/08/22 05:08 Urine Bilirubin Negative (Negative) 01/08/22 05:08 Urine Urobilinogen Normal mg/dL (Normal) 01/08/22 05:08 Ur Leukocyte Esterase 4+ (Negative) H 01/08/22 05:08 Urine RBC 3-4 /HPF (0-4) 01/08/22 05:08 Urine WBC 10-19 /HPF (0-4) H 01/08/22 05:08 Ur Squamous Epith Cells 0-1 /HPF (0-2) 01/08/22 05:08 Urine Bacteria None seen (None Seen) 01/08/22 05:08 Hyaline Casts 0-8 /LPF (0-8) 01/08/22 05:08 B-Hydroxybutyrate 0.89 mmol/L (0.05-0.27) H 01/08/22 04:15 COVID-19 PCR Interp N/A 01/08/22 11:10 SARS Antigen (LFIA) Negative (Negative) 01/08/22 04:16 Microbiology Results Micro: Microbiology - Results from entire visit 01/08/22 04:16 Nasal SARS Antigen (LFIA) - Final ABG Interpretation ABG results: 01/08/22 01/08/22 05:22 15:37 VBG pH 7.36 7.11 L* VBG pCO2 35.8 L 24.5 L VBG pO2 52.1 H 34.6 L VBG HCO3 19.8 L 7.6 L VBG Total CO2 20.9 L 8.4 L VBG O2 Saturation 85.3 H* 51.7 L* VBG Base Excess -5.0 L -20.2 L A&P - Hospitalist Assessment/Plan (1) Altered mental status: Plan 1. Diabetes mellitus type 1 associated with DKA Repeated VBG showed pH 7.1, repeated BMP still pending For now we will admit to intensive care unit, start on insulin drip Will give 2 L of bolus, continue with hydration Repeat BMP every 6 hours Stop insulin pump 2. Status post bladder resection with ileal conduit performed in April [address] [facility] CT scan showed right-sided ureteral stent associated with hydronephrosis. I am not sure if it is chronic. We will get in touch with [facility]. But her urinalysis looks without bacteria however she has positive leukocyte esterase and white blood cell counts will cover with antibiotic therapy. Urine cultures pending. 3. Status post recent abdominal surgery, but it seems like she had small bowel obstruction at [facility], discharged only [address] scan did not reveal any signs of intra-abdominal acute finding 4. Anemia, normocytic, without active signs of bleeding, we will recheck in a.m. 5. DVT prophylaxis Heparin I did discuss with the patient's cousin who is our ICU nurse Zarina who discussed with patient's brother. Due to hydronephrosis and a right-sided ureteral stent the decision was made to transfer the patient to [facility] for further care. For now await urine cultures. Continue with Invanz. Documented By: Jayashree Watts MD 01/08/22 1551 Signed By: <Electronically signed by Jayashree Watts MD> 01/08/221926 [facility] Work Phone: [phone]) 663-849709-08-2022 Miscellaneous Notes* Telephone Encounter - Shelbi Pérez - 12/22/2021 9:28 AM EDT Tried calling patient with date for cysto, voicemail box not set up, mailed appointment reminder documented [facility] encounterAd[facility] History of Past illness Narrative* Problem Noted Date Resolved Date Hypokalemia 12/21/2021 12/30/2021 Hypophosphataemia 12/21/2021 01/02/2022 Small bowel obstruction 12/16/2021 12/22/19 22 documented as of this encounter (statuses as of 01/07/2022) [facility] Miscellaneous Notes* Telephone Encounter - Peterson Gonsalez MD - 12/16/2021 7:19 PM EDT I contacted Chikis Tobar to follow-up after speaking with her earlier this week regarding surveillance scan results which demonstrated findings concerning for SBO. At that time she was clinically well and after discussing with my colleagues in general surgery elected close observation on a clear liquid diet. She tells me that at approximately 4 PM this afternoon she developed diffuse abdominal pain which is ongoing as well as nausea and abdominal distention. I have recommended she presents to the [place] emergency department immediately for evaluation. I have communicated with the [place] ER physicians to discuss her case. I have also discussed her case with Dr. Ildefonso Gong of General Surgery. We will plan to obtain labs and repeat CT abdomen pelvis upon arrival to the emergency department, may require surgical intervention this evening which I explained to her. She expressed understanding and will head to ED now. Peterson Gonsalez MD documented in this encounterAd[facility]09[facility] History of Past illness Narrative* Problem Noted Date Resolved Date Small bowel obstruction 12/16/2021 12/22/19 22 documented as of this encounter (statuses as of 12/22/2021) [place] [address]-02-2022 History of Past illness Narrative* Problem Noted Date Resolved Date Small bowel obstruction 12/16/2021 12/22/19 22 documented as of this encounter (statuses as of 01/18/2022) [facility] illness Narrative* Problem Noted Date Resolved Date Small bowel obstruction 12/16/2021 12/22/19 22 documented as of this encounter (statuses as of 01/20/2022) [address]-[address]22 History of Past illness Narrative* Problem Noted Date Resolved Date Small bowel obstruction 12/16/2021 12/22/19 22 documented as of this encounter (statuses as of 01/27/2022) [address]22 History of Past illness Narrative* Problem Noted Date Resolved Date Small bowel obstruction 12/16/2021 12/22/19 22 documented as of this encounter (statuses as of 01/31/2022) [address]02-[address]22 History of Past illness Narrative* Problem Noted Date Resolved Date Small bowel obstruction 12/16/2021 12/22/19 22 documented as of this encounter (statuses as of 01/31/2022) [address]22 History of Past illness Narrative* Problem Noted Date Resolved Date Small bowel obstruction 12/16/2021 12/22/19 22 documented as of this encounter (statuses as of 01/31/2022) [address]22 History of Past illness Narrative* Problem Noted Date Resolved Date Small bowel obstruction 12/16/2021 12/22/19 22 documented as of this encounter (statuses as of 02/02/2022) [address]22 History of Past illness Narrative* Problem Noted Date Resolved Date Small bowel obstruction 12/16/2021 12/22/19 22 documented as of this encounter (statuses as of 02/06/2022) [address]22 History of Past illness Narrative* Problem Noted Date Resolved Date Small bowel obstruction 12/16/2021 12/22/19 22 documented as of this encounter (statuses as of 02/10/2022) [address]22 History of Past illness Narrative* Problem Noted Date Resolved Date Small bowel obstruction 12/16/2021 12/22/19 22 documented as of this encounter (statuses as of 03/13/2022) [address]22 History of Past illness Narrative* Problem Noted Date Resolved Date Small bowel obstruction 12/16/2021 12/22/19 22 documented as of this encounter (statuses as of 05/03/2022) [address]22 History of Past illness Narrative* Problem Noted Date Resolved Date Small bowel obstruction 12/16/2021 12/22/19 22 documented as of this encounter (statuses as of 06/08/2022) [address]22 History of Past illness Narrative* Problem Noted Date Resolved Date Small bowel obstruction 12/16/2021 12/22/19 22 Obesity 02/16/2021 06/11/2022 Last Assessment & Plan: Body mass index is 32.12 kg/m . documented as of this encounter (statuses as of 07/20/2022) [address]22 History of Past illness Narrative* Problem Noted Date Resolved Date Small bowel obstruction 12/16/2021 12/22/19 22 Obesity 02/16/2021 06/11/2022 Last Assessment & Plan: Body mass index is 32.12 kg/m . documented as of this encounter (statuses as of 07/20/2022) [facility] of Past illness Narrative* Problem Noted Date Resolved Date Small bowel obstruction 12/16/2021 12/22/19 22 Obesity 02/16/2021 06/11/2022 Last Assessment & Plan: Body mass index is 32.12 kg/m . documented as of this encounter (statuses as of 08/17/2022) [facility] of Past illness Narrative* Problem Noted Date Resolved Date Small bowel obstruction 12/16/2021 12/22/19 22 Obesity 02/16/2021 06/11/2022 Last Assessment & Plan: Body mass index is 32.12 kg/m . documented as of this encounter (statuses as of 08/17/2022) [facility] of Past illness Narrative* Problem Noted Date Resolved Date Small bowel obstruction 12/16/2021 12/22/19 22 Obesity 02/16/2021 06/11/2022 Last Assessment & Plan: Body mass index is 32.12 kg/m . documented as of this encounter (statuses as of 08/23/2022) [facility] of Past illness Narrative* Problem Noted Date Resolved Date Small bowel obstruction 12/16/2021 12/22/19 22 Obesity 02/16/2021 06/11/2022 Last Assessment & Plan: Body mass index is 32.12 kg/m . documented as of this encounter (statuses as of 08/25/2022) [facility] of Past illness Narrative* Problem Noted Date Resolved Date Small bowel obstruction 12/16/2021 12/22/19 22 Obesity 02/16/2021 06/11/2022 Last Assessment & Plan: Body mass index is 32.12 kg/m . documented as of this encounter (statuses as of 09/21/2022) [facility] of [facility] illness Narrative* Problem Noted Date Diagnosed Date Resolved Date Small bowel obstruction 12/16/2021 09/0 10/2021 Obesity 02/16/2021 06/11/2022 Last Assessment & Plan: Body mass index is 32.12 kg/m . documented as of this encounter (statuses as of 10/24/2022) [facility] of Past illness Narrative* Problem Noted Date Diagnosed Date Resolved Date Small bowel obstruction 12/16/2021 09/0 10/2021 Obesity 02/16/2021 06/11/2022 Last Assessment & Plan: Body mass index is 32.12 kg/m . documented as of this encounter (statuses as of 11/24/2022) [facility] of Past illness Narrative* Problem Noted Date Diagnosed Date Resolved Date Small bowel obstruction 12/16/2021 09/0 10/2021 Obesity 02/16/2021 06/11/2022 Last Assessment & Plan: Body mass index is 32.12 kg/m . documented as of this encounter (statuses as of 12/15/2022) [facility] of Past illness Narrative* Problem Noted Date Diagnosed Date Resolved Date Small bowel obstruction 12/16/2021 09/0 10/2021 Obesity 02/16/2021 06/11/2022 Last Assessment & Plan: Body mass index is 32.12 kg/m . documented as of this encounter (statuses as of 01/10/2023) [address]22 History of Past illness Narrative* Problem Noted Date Diagnosed Date Resolved Date Small bowel obstruction 12/16/2021 09/0 10/2021 Obesity 02/16/2021 06/11/2022 Last Assessment & Plan: Body mass index is 32.12 kg/m . documented as of this encounter (statuses as of 02/10/2023) [facility] of Past illness Narrative* Problem Noted Date Diagnosed Date Resolved Date Small bowel obstruction 12/16/2021 09/0 10/2021 Obesity 02/16/2021 06/11/2022 Last Assessment & Plan: Body mass index is 32.12 kg/m . documented as of this encounter (statuses as of 03/07/2023) [place] [address]-02-2022 History of Past illness Narrative* Problem Noted Date Diagnosed Date Resolved Date Small bowel obstruction 12/16/2021 09/0 10/2021 Obesity 02/16/2021 06/11/2022 Last Assessment & Plan: Body mass index is 32.12 kg/m . documented as of this encounter (statuses as of 04/10/2023) [place] [address]-02-2022 History of Past illness Narrative* Problem Noted Date Diagnosed Date Resolved Date Small bowel obstruction 12/16/2021 09/0 10/2021 Obesity 02/16/2021 06/11/2022 Last Assessment & Plan: Body mass index is 32.12 kg/m . documented as of this encounter (statuses as of 06/20/2023) [address]22 History of Past illness Narrative* Problem Noted Date Diagnosed Date Resolved Date Small bowel obstruction 12/16/2021 09/0 10/2021 Obesity 02/16/2021 06/11/2022 Last Assessment & Plan: Body mass index is 32.12 kg/m . documented as of this encounter (statuses as of 06/21/2023) [facility] Miscellaneous Notes* Telephone Encounter - Jovanna Caceres - 12/15/2021 4:24 PM EDT Peterson Gonsalez MD [facility] [employer] This patient is scheduled to see me 12/21. Can you please schedule her for an upper GI series with small bowel follow through that day in the morning, and if necessary push back her appt with me until later in the afternoon the same day? She is coming from out of town and I want both done the same day. Thank you, Peterson I checked all locations for testing, nothing available same day. Most are booking out documented in this encounterAd[facility]08-[facility]-2022 Miscellaneous Notes* Telephone Encounter - Peterson Gonsalez MD - 12/14/2021 7:27 PM EDT I contacted Chikis Juárez Amadou earlier today, after receiving a call regarding her surveillance CT which showed evidence of small bowel obstruction. She reports feeling well, specifically stating that she is eating and drinking without nausea or vomiting, denies abdominal pain, and is passing flatus regularly and having daily bowel movements. I reviewed her case and imaging with one of my GeneralSurgery colleagues. Given absence of signs or symptoms of bowel obstruction and with the patient remaining clinically well, will start a liquid diet for the next 48 hours. If patient remains clinically well will transition to soft diet after that. If at any point she develops signs or symptoms of SBO, specifically nausea, vomiting, abdominal pain, obstipation, abdominal distension she will let meknow and immediately present to [facility] ED for admission and further management. If she remains well clinically, we will plan for upper GI series with SBFT next week at time of follow-up with me. She had opportunity to ask questions which were answered to her satisfaction and is in agreement with proceeding with the plan as outlined above. She understands the potential need for surgical intervention should she develop clinical signs of SBO. Peterson Gonsalez MD documented in this encounterAd[facility]08-[facility]-2022 History of Present illness Narrative* Peterson Gonsalez MD - 11/30/2021 3:15 PM EDT Appointment rescheduled documented in this encounterAd[facility]07-18-2022 Miscellaneous Notes* Telephone Encounter - Peterson Gonsalez MD - 10/31/2021 11:37 AM EDT I contacted Chikis Tobar to review CT results, which show small pelvic fluid collection not amenable to percutaneous drainage, without evidence of pubic osteo. Given vaginal drainage, will start empiric Augmentin and she will give an update in 2 weeks. Peterson Gonsalez MD documented in this encounterAd[facility]06-29-2022 Miscellaneous Notes* Telephone Encounter - Chelsie Mg RN - 10/12/2021 10:06 AM EDT Please sign pending Cre order for Chikis Tobar [phone] for upcoming CT with contrast. Thank you. 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 Ureteral stent removed 05/25/21. She contacted me 06/15/21 reporting ongoing intermittent nausea and vomiting since her last appointment. She was hospitalized 06/13/21 for DKA, which she has not experienced since being diagnosed with IDDM at age 6. I set her up for GI consultation for further evaluation give ongoing GI symptoms sinceradical cystectomy. She recently underwent C-scope / EGD 09/2021 which was negative and was started on H2 dianna with significant improvement in sx. Nausea is now resolved. Patient states she has lost 65 pounds since surgey, but has stopped losing weight in the last month. Today patient states she continues to have odorless vaginal discharge and uses pads for it. Denies previous fevers. She endoreses pain of the pubic bone. Standing up can be difficult, especially in the morning. Patient states she is unable to be active as she would like to be due to associated pelvic pain. PATHOLOGY: FINAL DIAGNOSIS 1. Left distal ureter, excision (A): Ureter, negative for malignancy. 2. Right distal ureter, excision (B): Ureter, negative for malignancy. 3. Bladder, uterus, bilateral fallopian tubes, left ovary, anterior vaginal wall, anterior exenteration (C): -No residual tumor. -Prior biopsy site changes. -Cervix with mild chronic inflammation and nabothian cysts. -Inactive endometrium with adenomyosis. -Bilateral fallopian tubes and ovary, negative for malignancy. -Margins of resection are negative for malignancy. -See synoptic report. 4. Left distal ureter, excision (D): Ureter, negative for malignancy. 5. Right distal ureter margin, excision (E): Ureter, negative for malignancy. 6. Bilateral pelvic lymph nodes, excision (F): Seven lymph nodes, negative for malignancy (0/7). 7. Right common iliac lymph nodes, excision (G): One lymph node, negative for malignancy (0/1). LABS: Creatinine Date Value Ref Range Status 05/25/2021 1.01 (H) 0.58 - 0.96 mg/dL Final 04/23/2021 0.88 0.58 - 0.96 mg/dL Final 04/22/2021 1.00 (H) 0.58 - 0.96 mg/dL Final 04/21/2021 0.94 0.58 - 0.96 mg/dL Final No results found for: PSA URINALYSIS: pH, Arterial Date Value Ref Range Status 04/20/2021 7.40 7.35 - 7.45 Final Specific [place], Ur Date Value Ref Range Status 04/13/2021 1.021 1.005 - 1.030 Final Glucose, Urine Date Value Ref Range Status 04/13/2021 3+ (A) Negative mg/dL Final Bilirubin, Urine Date Value Ref Range Status 04/13/2021 Negative Negative Final Ketones, Urine Date Value Ref Range Status 04/13/2021 Negative Negative Final Hemoglobin/Blood,Ur Date Value Ref Range Status 04/13/2021 2+ (A) Negative Final Protein, Urine Date Value Ref Range Status 04/13/2021 Negative Negative Final Nitrites Date Value Ref Range Status 04/13/2021 Negative Negative Final WBC, Urine Date Value Ref Range Status 04/13/2021 0-5 0 - 5 /HPF Final IMAGING: XR Abdomen 1V Supine : IMPRESSION: Unremarkable KUB of the abdomen. CT Urogram 07/13/21: IMPRESSION: No upper tract urothelial lesion. No metastatic disease in the abdomen/pelvis. Small retropubic fluid collection, which could be postoperative. Bilateral wedge-shaped renal cortical hypodensities, likely infectious/inflammatory. Bilateral pulmonary nodules. ALLERGIES: ALLERGIES Allergen Reactions Demeral [Meperidine] GI Upset Nausea, pt states room spins Flexeril [Cyclobenz* Hives Versed [Midazolam] Mental Status Change MEDICATIONS: Current Outpatient Medications Medication Sig omeprazole (PRILOSEC) 40 mg capsule Take 1 capsule by mouth once daily. 0.9 % sodium chloride (NACL 0.9%) 0.9% solp Inject 1,000 mL intravenously two times a week. x 2 weeks scopolamine (TRANSDERM-SCOP) patch 1.5 mg/72 hr (1 mg over 3 days) Apply 1 Patch as directed every 72 hours. MULTIVITAMIN ORAL Take by mouth. (Patient not taking: Reported on 05/25/2021 ) aspirin, enteric coated (ASPIRIN, ENTERIC COATED) 81 mg EC tablet Take 81 mg by mouth once daily. (Patient not taking: Reported on 05/25/2021 ) aspirin 325 mg tablet Take 1 tablet by mouth q 24 HR. You may stop that Aspirin 81mg and resume theAspirin 325mg 10 days after surgery if your urine is clear. (Patient not taking: Reported on 04/13/2021 ) NOVOLOG U-100 INSULIN ASPART 100 unit/mL metoprolol succinate ER (TOPROL XL) 100 mg Take 100 mg by mouth q 12 HR. metFORMIN (GLUCOPHAGE) 500 mg tablet Take 500 mg by mouth once daily. enalapril (VASOTEC) 20 mg tablet Take 20 mg by mouth q 24 HR. glucagon (BAQSIMI) 3 mg/actuation nasal spray Use in the nose as needed. ALESSIO 180 MG TAB Take by mouth. PRN ALBUTEROL 90 MCG/ACTUATION AEROSOL INHALER Use as directed four(4) times daily. IPRATROPIUM BROMIDE 0.06 % NASAL SPRAY AEROSOL Use in the nose. No current facility-administered medications for this visit. HISTORIES PAST MEDICAL HISTORY Diagnosis Date Asthma 02/16/2021 Bladder cancer (HCC) Diabetes mellitus type 1 (HCC) 04/13/2021 HTN (hypertension) 02/16/2021 Neoplasm of bladder 02/16/2021 Obesity 02/16/2021 Palpitations 02/16/2021 Type 2 diabetes mellitus without complication, with long-term current use of insulin (HCC) DM Type 1- diagnosed at age 6 PAST SURGICAL HISTORY Procedure Laterality Date CYSTO.PANENDO 05/25/2021 PAST SURGICAL HISTORY OF right ovary removed PAST SURGICAL HISTORY OF ORIF right ankle PAST SURGICAL HISTORY OF 02/18/2021 TURBT REMOVAL OF BLADDER & NODES VAGINAL HYSTERECTOMY Social History Tobacco Use Smoking status: Never Smoker Smokeless tobacco: Never Used Vaping Use Vaping Use: Never used Substance Use Topics Alcohol use: Not Currently Drug use: Never REVIEW OF SYSTEMS General: No weight loss, malaise or fevers., SEE HPI Genitourinary: See HPI The remainder of the ROS was reviewed and negative. PHYSICAL EXAMINATION There were no vitals taken for this visit. General: Well appearing, alert, in no acute distress and well-hydrated, well nourished Integumentary: Skin color, texture, turgor normal, no suspicious rashes or lesions Stoma looks clean as well as incisions. Abdominal: No abdominal destination. Genitourinary: FEMALE EXAM: Pain to palpation of pubic bone. Small volume vaginal drainage on pelvic exam without evidence of POP. PROBLEMS: 1. 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 Main issues since surgery include: 1. N/V and FTT - sx resolved since GI work-up and starting PPI, weight currently stable although down 65 lbs from pre-op. 2. Pelvic pain and vaginal discharge - symptoms and exam concerning for pelvic fluid collection or pubic osteomyelitis. Will obtain CT A/P to work-up, I will call with results. By signing my name below, I, Hector Fisher, attest that this documentation has been prepared under the direction and in the presence of Dr. Gonsalez Electronically signed, Birgit Hoangibe STAFF PHYSICIAN NOTE OF PERSONAL INVOLVEMENT IN CARE The above noted history, physical, assessment and plan were reviewed with the provider and criticalportions of the H&P were confirmed. I evaluated and examined the patient and agree with the plan above and provided direct supervision of the above provider during this patient's care. Peterson Gonsalez MD October 11, 2021 documented in this encounterAd[facility]06-24-2022 Miscellaneous Notes* Telephone Encounter - Chelsie Bridges RN - 10/07/2021 4:05 PM EDT Called and spoke with patient regarding her phone message. Patient states she is having scant yellow, odorless vaginal discharge. Changes pad 3x/day (morning, afternoon, bedtime) for cleanliness. C/O pelvic pain that shoots down BLE when pressing on pubic bone. IC draining clear, yellow urine. Bowels working regularly. Patient requesting to see Dr. Gonsalez sooner than scheduled appointment in November. Patient accepted 10/11/2021 150pm at [facility]. Updated Dr. Gonsalez. Chelsie Bridges RN * Telephone Encounter - Maggie Cross RN - 10/07/2021 12:59 PM EDT Patient called She states that she still has vaginal drainage since she had surgery in June States is a scant amount of yellow discharge, no odor She has pain in her pubic bone that started in July, it hurts when pressure is placed on it and when walking The stoma is fine, draining clear yellow She is scheduled for an appointment in November, asking for something sooner She main is concerned is the pain documented in this encounterAdams County [facility] Center06-08-2022 Nurse Note* Cindy Magana RN - 09/21/2021 3:31 PM EDT See blood glucose in flowsheet and glucose given as per MAR. Blood glucose 108 at this time. Patient asymptomatic and verbalizes discharge instructions. * Cindy Magana RN - 09/21/2021 3:20 PM EDT POST OP LEARNING RESPONSE INSTRUCTION PROVIDED TO: Patient and family member METHOD OF INSTRUCTION: Individual instruction Verbal instruction PATIENT / FAMILY RESPONSE: Verbalizes understanding of: POST-PROCEDURE INSTRUCTIONS-Correct actionsto take to reduce post procedure complications FOLLOW-UP PLAN: Complete - No need for follow-up Patient instructed to call with any further issues Follow-up with Primary Care SUPPLEMENTAL MATERIAL: None REFERRAL (RECOMMENDATION): None Electronically Signed By: Cindy Magana RN In Department: AMBULATORY SURGERY * Piedad Weber RN - 09/21/2021 1:42 PM EDT PRE OP LEARNING ASSESSMENT PROCEDURE/SURGERY: GI PROCEDURES: Colonoscopy and EGD READINESS TO LEARN COGNITIVE ABILITY: Alert and oriented MOTIVATION TO LEARN: Interested FAMILY SUPPORT: Unable to assess - Family not present PATIENT LEARNS BEST BY: Individual Instruction Written Instruction - Hand-outs Verbal Instruction FACTORS AFFECTING LEARNING: None PHYSICAL LIMITATIONS AFFECTING LEARNING: None Electronically Signed By: Piedad Weber RN In Department: AMBULATORY SURGERY documented in this encounterAdams County [facility]06-08-2022 History and physical note * Myrna Mendez MD - 09/21/2021 2:15 PM EDT HISTORY AND PHYSICAL EXAMINATION SERVICE DATE: 09/21/2021 SERVICE TIME: 2:22 PM PRIMARY CARE PHYSICIAN: Kalli White MD Subjective CHIEF COMPLAINT: Nausea and colon screening HPI: This is a 56 year old female who presents with nausea and colon screening FUNCTIONAL STATUS: Independent PAST MEDICAL HISTORY Diagnosis Date Asthma 02/16/2021 Bladder cancer (HCC) Diabetes mellitus type 1 (HCC) 04/13/2021 HTN (hypertension) 02/16/2021 Neoplasm of bladder 02/16/2021 Obesity 02/16/2021 Palpitations 02/16/2021 Type 2 diabetes mellitus without complication, with long-term current use of insulin (HCC) DM Type 1- diagnosed at age 6 PAST SURGICAL HISTORY Procedure Laterality Date CYSTO.PANENDO 05/25/2021 PAST SURGICAL HISTORY OF right ovary removed PAST SURGICAL HISTORY OF ORIF right ankle PAST SURGICAL HISTORY OF 02/18/2021 TURBT REMOVAL OF BLADDER & NODES VAGINAL HYSTERECTOMY FAMILY HISTORY Problem Relation Age of Onset Anesthesia Problems No Family History Colon Cancer No Family History Social History Tobacco Use Smoking status: Never Smoker Smokeless tobacco: Never Used Vaping Use Vaping Use: Never used Substance Use Topics Alcohol use: Not Currently Drug use: Never (Not in a hospital admission) ALLERGIES Allergen Reactions Demeral [Meperidine] GI Upset Nausea, pt states room spins Flexeril [Cyclobenz* Hives Versed [Midazolam] Mental Status Change COMPLETE REVIEW OF SYSTEMS: GENERAL: No weight loss, malaise or fevers HEENT: Negative for frequent or significant headaches, No changes in hearing or vision, no nose bleeds or other nasal problems NECK: Negative for lumps, goiter, pain and significant neck swelling RESPIRATORY: Negative for cough, hemoptysis, wheezing, COPD, dyspnea or shortness of breath CARDIOVASCULAR: Negative for chest pain, leg swelling, hypertension, CHF or palpitations GI: See HPI MUSCULOSKELETAL: Negative for joint pain or swelling, back pain or muscle pain PSYCH: Negative for sleep disturbance, mood disorder and recent psychosocial stressors ENDOCRINE: Negative for cold or heat intolerance, polyuria, polydipsia and goiter NEURO: No history of headaches, syncope, paralysis, seizures or tremors Objective PHYSICAL EXAM: Physical Exam Performed: GENERAL: Alert, no distress, cooperative SKIN: Skin color, texture, turgor normal. No rashes or lesions. EYES: EOMI OROPHARYNX: Lips, mucosa, and tongue normal. Teeth and gums normal. Oropharynx normal. NECK: No jugulovenous distention, No carotid bruits, Carotid pulse normal contour, Supple LUNGS: Lungs clear to auscultation, Good diaphragmatic excursion CARDIAC: Normal S1 and S2; no rubs, murmurs, or gallops ABDOMEN: Abdomen soft, non-tender, BS normal, No masses or organomegaly EXTREMITIES: Extremities normal, no deformities, edema, clubbing or skin discoloration. Good capillary refill., No ulcers NEURO: Grossly normal cognition, motor function, and cranial nerves III-XII BP 178/78 Pulse 87 Resp 18 Ht 5' 6 (1.68m) Wt 150 lb (68.0kg) SpO2 100% BMI 24.22 kg/(m^2). O2 Therapy: Room Air Assessment/Plan Nausea with colon screening for EGD and colonoscopy with risks of bleeding, perforation, reaction to anesthesia discussed. SIGNATURE: Myrna Mendez MD PATIENT NAME: Chikis Tobar DATE: September 21, 2021 TIME: 2:22 PM PAGER/CONTACT #: documented in this encounterAdams County [facility]05-10-2022 History of Present illness Narrative* Jose Orellana, HUMAN RESOURCE PROFESSIONAL.HI RANGER OPERATOR - 08/23/2021 10:35 AM EDT DEPARTMENT OF GASTROENTEROLOGY - NEW PATIENT/CONSULT REASON FOR VISIT Chikis Tobar is a 56 year old female who is scheduled at the request of Peterson Gonsalez for Nausea& Vomiting. My final recommendations will be communicated back to the requesting physician by the way of the shared medical record, fax, or via US Mail HISTORY OF PRESENT ILLNESS Chikis Tobar is a 56 year old female who presents today for an evaluation of nausea. Pertinent Recent/Past Workup: Symptoms: Vomiting since the cystectomy. Now once every 2 weeks. Used to be worse, was daily. Not related to narcotics. No NSAIDs. No hematemesis. No dark stool. No BRBPR. No colonoscopy to date. No abdominal pain. Wt is down about 50 lbs since the surgery. No constipation or diarrhea. 1 bm daily. No chemo or radiation. Failed zofran so far. No MJ use. +early satiety. No neuropathy. No hearbturn. No FH GI cancers 07/13/21: No upper tract urothelial lesion. No metastatic disease in the abdomen/pelvis. Small retropubic fluid collection, which could be postoperative. Bilateral wedge-shaped renal cortical hypodensities, likely infectious/inflammatory. Bilateral pulmonary nodules. PAST MEDICAL HISTORY Diagnosis Date Asthma 02/16/2021 Bladder cancer (HCC) Diabetes mellitus type 1 (HCC) 04/13/2021 HTN (hypertension) 02/16/2021 Neoplasm of bladder 02/16/2021 Obesity 02/16/2021 Palpitations 02/16/2021 Type 2 diabetes mellitus without complication, with long-term current use of insulin (HCC) DM Type 1- diagnosed at age 6 Allergies: Demeral [Meperidine] GI Upset Comment:Nausea, pt states room spins Flexeril [Cyclobenz* Hives Versed [Midazolam] Mental Status Change Current Outpatient Medications Medication Sig Dispense Refill scopolamine (TRANSDERM-SCOP) patch 1.5 mg/72 hr (1 mg over 3 days) Apply 1 Patch as directed every 72 hours. 5 Patch 1 NOVOLOG U-100 INSULIN ASPART 100 unit/mL metoprolol succinate ER (TOPROL XL) 100 mg Take 100 mg by mouth q 12 HR. metFORMIN (GLUCOPHAGE) 500 mg tablet Take 500 mg by mouth once daily. IPRATROPIUM BROMIDE 0.06 % NASAL SPRAY AEROSOL Use in the nose. 0 0.9 % sodium chloride (NACL 0.9%) 0.9% solp Inject 1,000 mL intravenously two times a week. x 2 weeks 4 Bag 1 MULTIVITAMIN ORAL Take by mouth. (Patient not taking: Reported on 05/25/2021 ) aspirin, enteric coated (ASPIRIN, ENTERIC COATED) 81 mg EC tablet Take 81 mg by mouth once daily. (Patient not taking: Reported on 05/25/2021 ) aspirin 325 mg tablet Take 1 tablet by mouth q 24 HR. You may stop that Aspirin 81mg and resume theAspirin 325mg 10 days after surgery if your urine is clear. (Patient not taking: Reported on 04/13/2021 ) enalapril (VASOTEC) 20 mg tablet Take 20 mg by mouth q 24 HR. glucagon (BAQSIMI) 3 mg/actuation nasal spray Use in the nose as needed. ALESSIO 180 MG TAB Take by mouth. PRN 0 ALBUTEROL 90 MCG/ACTUATION AEROSOL INHALER Use as directed four(4) times daily. 0 No current facility-administered medications for this visit. PAST SURGICAL HISTORY Procedure Laterality Date CYSTO.PANENDO 05/25/2021 PAST SURGICAL HISTORY OF right ovary removed PAST SURGICAL HISTORY OF ORIF right ankle PAST SURGICAL HISTORY OF 02/18/2021 TURBT REMOVAL OF BLADDER & NODES Social History Tobacco Use Smoking status: Never Smoker Smokeless tobacco: Never Used Vaping Use Vaping Use: Never used Substance Use Topics Alcohol use: Not Currently Drug use: Never FAMILY HISTORY Problem Relation Age of Onset Anesthesia Problems No Family History Colon Cancer No Family History REVIEW OF SYSTEMS Cardiovascular: No chest pain Respiratory: Negative for cough, wheezing and shortness of breath Gastrointestinal : See above Psychiatric: No problems PHYSICAL EXAMINATION BP 135/73 Pulse 105 Wt 68 kg (150 lb) BMI 24.21 kg/m General Appearance: Well appearing, alert, in no acute distress, gait steady. Eyes: Pupils equal, no scleral icterus Lungs: breath sounds clear to auscultation bilaterally Heart: regular rate and rhythm, no murmurs Abdomen: not distended, normal bowel sounds, soft and depressible, no guarding or rebound, no palpable mass, no organomegaly. Non TTP. Neuro: alert, oriented x 3, pleasant and in no acute distress Psych: pleasant affect, calm Assessment IMPRESSION Ms. Tobar is a 56 year old female with a history of bladder cancer s/p cystectomy with ileal conduit 04/2021, T1DM, htn who presents with severe n/v since the cystectomy. This started after a period of very erratic blood sugar following surgery with an admission for DKA in May (1st in her lifetime.) she denies abdominal pain, heartburn, and bowel irregularity. There is no hematemesis. Nausea has bene gradually improving with time. She has failed Zofran to date. CT urogram was unremarkable in June, neg KUB in May. Suspect gastroparesis triggered by post op hyperglycemia which appears to be improving as glucose levels are normalizing. PUD also possible. Will arrange her first screening colonoscopy along with anEGD to start. Will try 40mg omeprazole and a gastroparesis diet in the interim. If no better with negative EGD will then check a GES. PLAN -EGD/Colonoscopy MAC. Miralax prep. -GES if EGD neg with persistent symptoms -Start 40mg omeprazole, may stop at EGD pending results -Provided gastroparesis diet Jose Orellana APRN.CNP 08/23/2021 10:35 AM documented in this encounterAdams [facility]02-22-2022 History of Present illness Narrative* CHIKIS TOBAR is being seen for follow-up of a recent hospitalization for, type 1 diabetes. Dateof last HbA1c: 06/07/21 and results: 9.2%. * Current DM Regimen:. insulin. pump. CGM. compliant with current DM regimen. * Home Glucose Monitoring: * Source: reported by patient. * Frequency of Testing: Testing done daily. Testing done with meals. * Compliant with home glucose monitoring. * Glucose Ranges: 76-380. * No recent hypoglycemic episodes. * Diet Plan: * Type of Diet: Carb counting * Patient is compliant with diet plan. * Diabetes Surveillance: Foot exam/plumber's helper: 08/03/20. * Diabetes Complications: * Opthalmic: Has eye complications * Cardiovascular: no coronary artery disease. * Renal: no nephropathy. * Neurologic: peripheral neuropathy. * Other complications: * DKA requiring hospitalization: 05/2021. * pt was nauseated after surgery and abx for bladder cx - tumor removed in february 2021 - anesthesiologist allowed insulin pump use during procedure and after * tumor board advised total hysterectomy with L oopherectormy - cystectectomy and vaginal lining removal - completed apr 20 (stayed for 4 days at [facility]) - pt was not permitted to wear insulin pump within that hospitalization * - - glucose went very high to 500's in hospital without pump * home glucose fluctuant * abdomen swollen - suspected poor insulin absorption due to swelling * home glucose fairly well controlled since she has been home for last few weeks * You may follow the 30-60-90 rule with your dexcom arrows as predictive bolusing * - for single arrow up, add 60 to your current sugar reading as your bolus input * - for double arrow up, add 90 to your current sugar reading as your bolus input * - for single arrow down, subtract 60 from your current sugar reading as your bolus input * - for double arrow down, subtract 90 from your current sugar reading as your bolus input * Pt's tandem tconnect account linked to provider's access, she agrees to work on uploading her pump to this website for provider view at appointments ZN-Dkqcleyggplfy-FWF [address] Work Phone: 1(412) 984-203102-22-2022 History of Present illness Narrative* CHIKIS TOBAR is being seen for routine follow-up for, type 1 diabetes. Date of last HbA1c: 06/07/21 and results: 9.2%. * Current DM Regimen:. insulin. pump. CGM. compliant with current DM regimen. * Home Glucose Monitoring: * Source: [employer] tconnect device downloaded, reviewed and scanned into chart. * Frequency of Testing: Testing done daily. Testing done with meals. * Compliant with home glucose monitoring. * Glucose Ranges: 76-380. * No recent hypoglycemic episodes. * Diet Plan: * Type of Diet: Carb counting * Patient is compliant with diet plan. * Diabetes Surveillance: Foot exam/plumber's helper: 08/03/20. * Diabetes Complications: * Opthalmic: Has eye complications * Cardiovascular: no coronary artery disease. * Renal: no nephropathy. * Neurologic: peripheral neuropathy. * Other complications: * DKA requiring hospitalization: 05/2021. * pt was nauseated after surgery and abx for bladder cx - tumor removed in february 2021 - anesthesiologist allowed insulin pump use during procedure and after * tumor board advised total hysterectomy with L oopherectormy - cystectectomy and vaginal lining removal - completed apr 20 (stayed for 4 days at [facility]) - pt was not permitted to wear insulin pump within that hospitalization * - - glucose went very high to 500's in hospital without pump * abdomen swollen - suspected poor insulin absorption due to swelling * home glucose fairly well controlled since she has been home for last few weeks * You may follow the 30-60-90 rule with your dexcom arrows as predictive bolusing * - for single arrow up, add 60 to your current sugar reading as your bolus input * - for double arrow up, add 90 to your current sugar reading as your bolus input * - for single arrow down, subtract 60 from your current sugar reading as your bolus input * - for double arrow down, subtract 90 from your current sugar reading as your bolus input * Pt's tandem tconnect account linked to provider's access, she agrees to work on uploading her pump to this website for provider view at appointments * after dinner getting hypeglycemic * - we discussed option to strengthen carb ratio at dinner time from 1:6 to 1:5.5 * she is having stabbing pelvic pain and difficulty walking with pelvic fluid collection PI-Btzoboufjcbms-AY[facility] [address] Work Phone: [phone]) 856-840402-09-2022 NoteHNO ID: [id number] Author: Maame Persaud, RT(R) Service: Radiology Author Type: Technologist Type: Progress Notes Filed: 05/25/2021 5:38 PM Note Text: Radiology Service Progress Note PATIENT NAME: Chikis Tobar DATE OF SERVICE: May 25, 2021 TIME: 5:37 PM PATIENT IDENTITY VERIFICATION COMPLETED USING TWO (2) IDENTIFIERS: Name and Date of confirmed by patient verbally and Name and Date of confirmed by identification band. FALL SCREENING: Has the patient had 2 falls in the last year or 1 fall with injury or currently using an Ambulatory Assistive Device (Walker, Cane, Wheelchair, Crutches, etc.)? No PATIENT GENDER DATA: Female. status: : No status: NO. PATIENT RELEVANT IMPLANT DATA REVIEWED: Not Applicable RADIOLOGY DEPARTMENT: General X-ray: Exam(s) Completed: Abdomen X-Ray: Abdomen PERIPHERAL IV DATA: Not applicable SIGNED BY: RT Elisa(R) May 25, 2021 5:37 [id number] History of Past illness Narrative* Problem Noted Date Diagnosed Date Resolved Date Obesity 02/16/2021 06/11/2022 Last Assessment & Plan: Body mass index is 32.12 kg/m . documented as of this encounter (statuses as of 11/25/2022) [facility]10-[facility] Miscellaneous Notes* Telephone Encounter - Flor De Jesus - 02/04/2021 12:18 PM EDT Attempted to reach patient by phone in chart to bring records to appointment with Dr. Gonsalez on 02/09/2021. No VM left as phone hangs up before a message can be left. Flor Luu Urology documented in this encounterAdams County [facility] Center10-22-2021 Miscellaneous Notes* Telephone Encounter - Bree Briceno LPN - 02/04/2021 10:15 AM EDT Per staff message patient added to see Dr. Gonsalez Friday 02/09 at 8:30am Patient aware and will bring all records she has to appt. Flro Roberts is working on other records as well documented in this encounterAdams County [facility] Center09-30-2021 NoteClinical Information Procedure: Endometrial biopsy Pre-operative diagnosis: Postmenopausal bleeding SP Specimen A Endometrial tissue Gross Description Received in formalin labeled 'endometrial tissue' is a 1.4 x 0.8 x 0.2 cm aggregate of doty soft tissue fragments admixed with clotted blood. Entirely submitted in cassette A1. Microscopic Description The specimen consists of multiple fragments of benign endometrial stroma showing mild chronic inflammation. An occasional atrophic gland is noted. Hyperplasia, atypia or carcinoma is not present. Diagnosis Endometrium, biopsy: Benign atrophic endometrial tissue with mild chronic inflammation. [id number] Katie Argueta MD (Electronically signed by) Verified: 01/17/21 15:11BChillicothe HospitalComment on above:Performed By: #### SPR #### [facility] (DEFAULT) [address], [place] [id number] History of Present illness Narrative* CHIKIS TOBAR is being seen for routine follow-up for, type 1 diabetes. Date of last HbA1c: 08/03/20 and results: 11.1%. * Current DM Regimen:. insulin. pump. CGM. compliant with current DM regimen. * Home Glucose Monitoring: * Source: reported by patient. * Frequency of Testing: Testing done daily. Testing done with meals. * Compliant with home glucose monitoring. * Glucose Ranges: 60-400. * No recent hypoglycemic episodes. * Diet Plan: * Type of Diet: Carb counting * Patient is compliant with diet plan. * Diabetes Surveillance: Foot exam/plumber's helper: 08/03/20. * Diabetes Complications: * Opthalmic: Has eye complications * Cardiovascular: no coronary artery disease. * Renal: no nephropathy. * Neurologic: peripheral neuropathy. * Insulin Pump: T-slim * CGM: Dexcom * Short Acting Insulin: Novolog (aspart) * CGM INTERPRETATION: Average blood glucose: mg/dl. * pt continues to have monthly vaginal bleeding, she had an IUD placement 7 years prior * - pt's home OBGYN saw her and did US and endometrial bx, we reviewed her pelvic US together as she is anxious to discuss with obgyn next week * pt agrees to update labs and continue current pump settings DS-Oxuvgvxmlhzpq-WEG [place] Work Phone: 1(120) 318-257204-20-2021 History of Present illness Narrative* CHIKIS TOBAR is being seen for routine follow-up for, type 1 diabetes. Date of last HbA1c: 08/03/20 and results: 11.1%. * Current DM Regimen:. insulin. pump. CGM. compliant with current DM regimen. * Home Glucose Monitoring: * Source: reported by patient. * Frequency of Testing: Testing done daily. Testing done with meals. * Compliant with home glucose monitoring. * Glucose Ranges: 60-400. * No recent hypoglycemic episodes. * Diet Plan: * Type of Diet: Carb counting * Patient is compliant with diet plan. * Diabetes Surveillance: Foot exam/plumber's helper: 08/03/20. * Diabetes Complications: * Opthalmic: Has eye complications * Cardiovascular: no coronary artery disease. * Renal: no nephropathy. * Neurologic: peripheral neuropathy. * pt was nauseated after surgery and abx for bladder cx - tumor removed in february 2021 - anesthesiologist allowed insulin pump removal * tumor board advised total hysterectomy with L oopherectormy - cystectectomy and vaginal lining removal - completed apr 20 (stayed for 4 days at [facility]) - pt was not permitted to wear insulin pump within that hospitalization * - - glucose went in hospital without pump * home glucose fluctuant * abdomen swollen - poor insulin absorption * home glucose fairly well controlled * You may follow the 30-60-90 rule with your dexcom arrows as predictive bolusing * - for single arrow up, add 60 to your current sugar reading as your bolus input * - for double arrow up, add 90 to your current sugar reading as your bolus input * - for single arrow down, subtract 60 from your current sugar reading as your bolus input * - for double arrow down, subtract 90 from your current sugar reading as your bolus input [id number] [address] Work Phone: [phone] History of Present illness Narrative* CHIKIS TOBAR is being seen for routine follow-up for, type 1 diabetes. Date of last HbA1c: 06/13/19 and results: 10.5%. * Current DM Regimen:. insulin. pump. CGM. compliant with current DM regimen. * Home Glucose Monitoring: * Source: reported by patient. * Frequency of Testing: Testing done daily. Testing done with meals. * Compliant with home glucose monitoring. * Glucose Ranges: 60-400. * No recent hypoglycemic episodes. * Diet Plan: * Type of Diet: Carb counting * Patient is compliant with diet plan. * Diabetes Surveillance: Foot exam/plumber's helper: 08/03/20. * Diabetes Complications: * Opthalmic: Has eye complications * Cardiovascular: no coronary artery disease. * Renal: no nephropathy. * Neurologic: peripheral neuropathy. * CGM INTERPRETATION: Average blood glucose: mg/dl. * pt continues to have monthly vaginal bleeding, she had an IUD placement 7 years prior * - pt's home OBGYN saw her and did US and endometrial bx, we reviewed her pelvic US together [id number] Work Phone: Evaluation note* Diagnosis Encounter for screening for malignant neoplasm of colon- Primary Special screening for malignant neoplasms, colon Nausea and vomiting, unspecified vomiting type Early satiety Nausea Nausea alone [facility] Diagnosis Nausea and vomiting, unspecified vomiting type Encounter for screening for malignant neoplasm of colon Special screening for malignant neoplasms, colon [facility] Diagnosis History of bladder cancer- Primary Personal history of malignant neoplasm of bladder Abdominal pain, unspecified abdominal location [facility] Diagnosis Malignant neoplasm of urinary bladder, unspecified site (HCC)- Primary [facility]* Diagnosis Malignant neoplasm of urinary bladder, unspecified site (HCC)- Primary Malignant neoplasm of urinary bladder, unspecified site (HCC) [facility] Diagnosis APPOINTMENT CANCELLED- Primary [facility] Diagnosis Small bowel obstruction (HCC)- Primary Unspecified intestinal obstruction [facility] Diagnosis Onset Date Resolution Status Abdominal pain acute Altered mental status acute Unable to care for self [facility] Work Phone: Evaluation note* Diagnosis History of bladder cancer- Primary Personal history of malignant neoplasm of bladder Malignant neoplasm of urinary bladder, unspecified site (HCC) [facility]* Diagnosis Severe protein-calorie malnutrition (HCC)- Primary Other severe protein-calorie malnutrition S/P exploratory laparotomy Other postprocedural status documented in this encounter [facility] note* Diagnosis S/P exploratory laparotomy- Primary Other postprocedural status Severe protein-calorie malnutrition (HCC) Other severe protein-calorie malnutrition [facility]* Diagnosis S/P exploratory laparotomy- Primary Other postprocedural status Severe protein-calorie malnutrition (HCC) Other severe protein-calorie malnutrition Chronic low back pain without sciatica, unspecified back pain laterality documented in this encounter [facility] note* Diagnosis History of bladder cancer- Primary Personal history of malignant neoplasm of bladder [facility] noteNo InformationdaPulse Other Evaluation note* Diagnosis Cervicalgia- Primary documented in this encounter [facility] note* Diagnosis Other hydrocephalus (HCC)- Primary [facility]* Diagnosis Malignant neoplasm of urinary bladder, unspecified site (HCC)- Primary Severe protein-calorie malnutrition (HCC) Other severe protein-calorie malnutrition Type 1 diabetes mellitus with unspecified complications (HCC) [facility]* Diagnosis Other hydrocephalus (HCC)- Primary Severe protein-calorie malnutrition (HCC) Other severe protein-calorie malnutrition [facility]* Diagnosis Other hydrocephalus (HCC)- Primary documented in this encounter [facility] note* Diagnosis Onset Date Resolution Status Bladder cancer chronic Limited mobility chronic 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 Type 1 diabetes mellitus chr onic Walker as ambulation aid chr onic Pressure ulcer of sacral region, stage 3 resolved [facility] Work Phone: [facility] ebindleLively Other Evaluation note* Diagnosis Therapeutic drug monitoring- Primary Encounter for therapeutic drug monitoring Fungal meningitis Other and unspecified mycoses 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 Type 1 diabetes mellitus with unspecified complications (HCC) documented in this encounter [facility] note* Diagnosis Other hydrocephalus (HCC) documented in this encounter [facility] note* Diagnosis Malignant neoplasm of urinary bladder, unspecified site (HCC) documented in this encounter [facility] note* Diagnosis Other hydrocephalus (HCC)- Primary [facility]* Diagnosis History of bladder cancer- Primary Personal history of malignant neoplasm of bladder [facility]* Diagnosis Fungal meningitis- Primary Other and unspecified mycoses Obstructive hydrocephalus (HCC) Obstructive hydrocephalus 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 Type 1 diabetes mellitus with unspecified complications (HCC) Myelitis (HCC) Unspecified cause of encephalitis, myelitis, and encephalomyelitis care home (current) use of antibiotics documented in this encounter [facility] note* Diagnosis Fungal meningitis- Primary Other and unspecified mycoses Acute pain of both shoulders Obstructive hydrocephalus (HCC) Obstructive hydrocephalus Therapeutic drug monitoring Encounter for therapeutic drug monitoring care home (current) use of antibiotics 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 Type 1 diabetes mellitus with unspecified complications (HCC) Myelitis (HCC) Unspecified cause of encephalitis, myelitis, and encephalomyelitis documented in this encounter [facility] note* Diagnosis Closed nondisplaced transverse fracture of left patella, initial encounter- Primary documented in this encounter [facility] general Narrative - Reported* Type Description Date Medical History DM 1 Medical History OBESITY Medical History ASTHMA Surgical History ORIF R ANKLE FRACTURE 2000 Surgical History RIGHT OOPHERECTOMY FOR CYST Hospitalization History FOR SURGERIES [employer] Other History general Narrative - ReportedNort Africasana Other History general Narrative - Reported* Type Description Date Medical History DM 1 Medical History OBESITY Medical History ASTHMA Surgical History ORIF R ANKLE FRACTURE 2000 Surgical History RIGHT OOPHERECTOMY FOR CYST Surgical History T5 intradural bx and placement of EVD 06/2022 Surgical History TYPEWRITER TESTER shunt placement Hospitalization History FOR SURGERIES daPulse Other Progress note Author Marjorie Headley [facility] September 28, 2022 1:43pm Note Date/Time September 28, 2022 1:43 pm [facility] [address] [place] [address] Wound Center Provider Note Signed Patient: Chikis Tobar MR#: [id number] : 1965 Acct:[id number] Age/Sex: 57 / F Copies to: DO Marjorie Goins, HUMAN RESOURCE PROFESSIONAL~ HPI Date of Visit Date of Visit: Date of Service: 09/28/2022 Time of Service: 13:42 Narrative HPI: 08/08/22 Chikis is a 57 year old female presenting to [facility] wound care program for an initial visit for eval and treatment of a sacral area ulcer. She does have a history of bladder cancer- she has a urinary catheter and an ileostomy. She lives with her aunt currently and her cousin who is a nurse is helping with the dressings. Medical honey gel and silicone bordered foam bandagewill be used until seen next. A DME supplier was faxed the orders. Chikis will return within 2 weeks. A well balanced diet of protein, amino acids, low inflammation foods, and avoidance of fried, fast, and processed foods will be needed for healing as well as pressure relief and diabetic control with an A1C under 7. I see no signs of infection today. 08/23/22 improved, keep the same orders, 2 week appt, no acute signs of infection 09/13/22 better again, nearly healed, will keep same orders 2-3 week appt, hope to be healed at that visit 09/28/22 healed today, protective bandage applied, aware to call with any future needs Subjective Pain Sacrum: Pain Intensity: 0 Wound/Ulcer History When did wound start?: May 2022 Mode of Arrival/ Machine Staker: Family Assistive Device Used Today: Walker Lives with:: Multiple Family Members Appetite Description: Within Normal Limits Who helps w/ dressing change?: Family Why Do You Need Help?: Can't Reach Ulcer Smoking Status: Never smoker [facility] Medical History (Updated 09/28/22 @ 13:43 by Marjorie Headley APRN) Asthma Bladder cancer Diabetes Sacral ulcer Surgical History (Updated 08/08/22 @ 13:41 by Marjorie Headley APRN) History of bladder surgery BLADDER REMOVED History of ileal conduit History of open reduction and internal fixation (ORIF) procedure RIGHT ANKLE, HARDWARE REMOVED Hx of hysterectomy Family History Other HTN (hypertension) Social History Smoking Status: Never smoker Substance Use Type: None Grafts History of Graft History of Graft?: No Exam Physical Exam Vital Signs: Temp Pulse Resp BP O2 Del Method 97.9 F 80 18 148/68 H Room Air 09/28/22 13:35 09/13/22 08:35 09/28/22 13:35 09/13/22 08:35 09/28/22 13:35 Const General: cooperative, comfortable and no acute distress Nutritional Appearance: thin Orientation: alert, awake and oriented x3 Lower/Upper Extremity Exam Vascular Exam-Pulses Left Brachial: Pulse Assessment Method: NIBP Objective Meds/Allergies Home Medications insulin aspart U-100 100 unit/mL subcutaneous solution (Novolog U-100 Insulin aspart) See Rx Instructions .Route .COMPLEX 04/30/21 [History Confirmed 08/08/22] metoprolol succinate 100 mg tablet,extended release 24 hr (Toprol XL) 100 mg PO BID 04/30/21 [History Confirmed 08/08/22] bacitracin 500 unit/gram topical ointment 1 applic topical DAILY 08/08/22 [History Confirmed 08/08/22] cholecalciferol (vitamin D3) 50 mcg (2,000 unit) capsule (Vitamin D3) 50 mcg PO DAILY 08/08/22 [History Confirmed 08/08/22] ferrous sulfate 325 mg (65 mg iron) tablet (iron) 325 mg PO DAILY 08/08/22 [History Confirmed 08/08/22] insulin glargine 100 unit/mL (3 mL) subcutaneous pen (Lantus Solostar U-100 Insulin) 18 unit subcut HS 08/08/22 [History Confirmed 08/08/22] pantoprazole 40 mg tablet,delayed release (Protonix) 40 mg PO DAILY 08/08/22 [History Confirmed 08/08/22] posaconazole 300 mg oral suspension,delayed release in a packet (Noxafil) 300 mgPO DAILY 08/08/22 [History Confirmed 08/08/22] sennosides 8.6 mg tablet (Senokot) 8.6 mg PO DAILY PRN Constipation 08/08/22 [History Confirmed 08/08/22] Allergies cyclobenzaprine [From Flexeril] Allergy (Verified 08/08/22 13:30) Rash meperidine [From Demerol] Allergy (Verified 08/08/22 13:30) Dizziness midazolam [From Versed] Allergy (Verified 08/08/22 13:30) Agitated Wound/Ulcer Sacrum: Type: Pressure/Injury Ulcer Pressure Ulcer/Injury Staging: Stage 3 Length (cm): 0 Width (cm): 0 Depth (cm): 0 CM Sq: 0.000 Surrounding Tissue Appearance: [place] Surrounding Tissue Temp: Warm Drainage Amount: None Drainage Odor: No Odor Results Height: 5 ft 6 in Weight: 48.081 kg Body Mass Index: 17.1 Assessment/Plan Assessment/Plan (1) Pressure ulcer of sacral region, stage 3: Code(s): L89.153 - Pressure ulcer of sacral region, stage 3 Status: Resolved (2) Bladder cancer: Code(s): C67.9 - Malignant neoplasm of bladder, unspecified Status: Chronic (3) Type 1 diabetes mellitus: Qualifiers: Diabetes mellitus complication status: with ketoacidosis Code(s): E10.9 - Type 1 diabetes mellitus without complications Status: Chronic (4) Limited mobility: Code(s): Z74.09 - Other reduced mobility Status: Chronic (5) Walker as ambulation aid: Code(s): Z99.89 - Dependence on other enabling machines and devices Status: Chronic (6) Thin build in adult: Status: Chronic Time spent with patient Time Spent With Patient (min): 10 Dictated By: Marjorie Headley APRN DD/ 41 Signed By: <Electronically signed by STEVEN Headley> 09/28/22 [facility] Work Phone: Reason for referral (narrative)* Diagnostic Procedure Only (Routine) - Pending Review Specialty Diagnoses / Procedures Referred By Humza carter Referred To Contact MOLECULAR & FUNCTIONAL IMAGING Diagnoses Early satiety Nausea Procedures NM GASTRIC EMPTYING SOLID GASTRIC EMPTYING STUDY Jose Orellana APRN.HI RANGER OPERATOR [address] [id number] [facility] [address] [place] [address] Referral ID Status Reason Start Date Expiration Date Visits Requested Visits Authorized [id number] Pending Review Auto-Generat ed Referral 08/23/2021 09/22/2022 1 1 * Outpatient Procedure (Routine) - Authorized Specialty Diagnoses / Procedures Referred By Humza carter Referred To Contact [facility] Diagnoses Encounter for screening for malignant neoplasm of colon Procedures COLONOSCOPY SCREENING COLONOSCOPY FLX DX W/COLLJ SPEC WHEN Jose Joyner APRN.HI RANGER OPERATOR [address] [place] [address] [facility] [address] [place] [address] Referral ID Status Reason Start Date Expiration Date Visits Requested Visits Authorized [id number] Authorized Auto-Generat ed Referral 08/23/2021 08/23/2022 1 1 * Outpatient Procedure (Routine) - Authorized Specialty Diagnoses / Procedures Referred By Contac t Referred To Contact [facility] Diagnoses Nausea and vomiting, unspecified vomiting type Procedures EGD DIAGNOSTIC ESOPHAGOGASTRODUODENOSC OPY TRANSORAL DIAGNOSTIC Jose Orellana APRN.CNP [address] [place] [address] [address] Referral ID Status Reason Start Date Expiration Date Visits Requested Visits Authorized [id number] Authorized Auto-Generat ed Referral 08/23/2021 08/23/2022 1 1 [facility] for referral (narrative)* Outpatient Procedure (Routine) - Closed Specialty Diagnoses / Procedures Referred By Contac t Referred To Contact [facility] Diagnoses Encounter for screening for malignant neoplasm of colon Procedures COLONOSCOPY SCREENING COLONOSCOPY FLX DX W/COLLJ SPEC WHEN Jose Joyner APRN.HI RANGER OPERATOR [address] [place] [address] [facility] [address] [place] [address] Referral ID Status Reason Start Date Expiration Date V isits Requested Visits Authorized [id number] Closed Auto-Generate d Referral 08/23/2021 08/23/2022 1 1 * Outpatient Procedure (Routine) - Closed Specialty Diagnoses / Procedures Referred By Contac t Referred To Contact [facility] Diagnoses Nausea and vomiting, unspecified vomiting type Procedures EGD DIAGNOSTIC ESOPHAGOGASTRODUODENOSC OPY TRANSORAL DIAGNOSTIC Jose Orellana APRN.CNP [address] [place] [address] [facility] [address] [place] [address] Referral ID Status Reason Start Date Expiration Date V isits Requested Visits Authorized [id number] Closed Auto-Generate d Referral 08/23/2021 08/23/2022 1 1 [facility] for referral (narrative)* Diagnostic Procedure Only (Routine) - Pending Review Specialty Diagnoses / Procedures [facility] To Contact XR IMAGING Diagnoses Small bowel obstruction (HCC) Procedures XR GI SMALL BOWEL FOLLOW-THRU RADIOLOGIC SMALL INTESTINE FOLLOW-THROUGH STUDY Peterson Gonsalez MD [address] [place] [address] Xr Imaging Referral ID Status Reason Start Date Expiration Date Visits Requested Visits Authorized [id number] Pending Review Auto-Generat ed Referral 12/14/2021 01/13/2023 1 1 * Diagnostic Procedure Only (Routine) - Pending Review Specialty Diagnoses / Procedures [facility] Referred To Contact [facility]R IMAG[facility] Diagnoses Small bowel obstruction (HCC) Procedures XR UPPER GI SINGLE CONTRAST RADIOLOGIC EXAM UPR GI TRC SINGLE CONTRAST STUDY Peterson Gonsalez MD [address] [place] [address] Xr Imaging Referral ID Status Reason Start Date Expiration Date Visits Requested Visits Authorized [id number] Pending Review Auto-Generat ed Referral 12/14/2021 01/13/2023 1 1 [facility] for visit Narrative* Outpatient Procedure (Routine) - Closed Specialty Diagnoses / Procedures [facility] Diagnoses Encounter for screening for malignant neoplasm of colon Procedures COLONOSCOPY SCREENING COLONOSCOPY FLX DX W/COLLJ SPEC WHEN PFRMD Jose Orellana, HUMAN RESOURCE PROFESSIONAL.HI RANGER OPERATOR [address] [place] [address] [facility] [place] [address] [place] [address] Referral ID Status Reason Start Date Expiration Date V isits Requested Visits Authorized [id number] Closed Auto-Generate d Referral 08/23/2021 08/23/2022 1 1 [facility] Advance Directives No Advanced Directives Records FoundDocuments on File Type Date Recorded 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 Advance Directives and Living Will Power of Territory Sales Representative Documents on File Type Date Recorded 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 Advance Directive(s) 03/22/2021 4:05 PM Advance Directive(s) 02/10/2021 2:40 PM M ain Documents on File Type Date Recorded 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 Advance Directive(s) 03/22/2021 4:05 PM Advance Directive(s) 02/10/2021 2:40 PM M ain Advance Directive Response Recorded Date/ Time Advance Directives No June 28, 018 10:37am Documents on File Type Date 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 Advance Directive(s) 01/10/2022 11:16 AM Documents on File Type Date Recorded 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 Advance Directive(s) 01/10/2022 11:16 AM Latest Code Status on File Code Status Date Activated Date Inactivated Comments Full Code 06/15/2022 3:36 PM Full Code Order Discussed With: Patient Full Code 06/11/2022 10:23 AM 06/15/2022 8:59 AM Latest Code Status on File Code Status Date Activated Date Inactivated Comments Full Code 06/15/2022 3:36 PM 07/21/2022 4:41 PM Full Code 06/11/2022 10:23 AM 06/15/2022 8:59 AM Latest Code Status on File Code Status Date Activated Date Inactivated Comments Full Code 06/15/2022 3:36 PM 07/21/2022 4:41 PM Latest Code Status on File Code Status Date Activated Date Inactivated Comments Full Code 06/15/2022 3:36 PM 07/21/2022 4:41 PM Question Answer Comments Full Code Order Discussed With: Patient Code Status History Code Status Date Activated Date Inactivated Comments Full Code 06/11/2022 10:23 AM 06/15/2022 8:59 AM Question Answer Comments Full Code Order Discussed With: Patient Latest Code Status on File Code Status Date Activated Date Inactivated Comments Full Code 06/15/2022 3:36 PM 07/21/2022 4:41 PM Question Answer Comments Full Code Order Discussed With: Patient Code Status History Code Status Date Activated Date Inactivated Comments Full Code 06/11/2022 10:23 AM 06/15/2022 8:59 AM Question Answer Comments Full Code Order Discussed With: Patient Summary Purpose Family History No Family History Records Found Relationship Condition Age at Onset Recorded Date/T migue Not Specified Hypertension Unknown Assessments Diagnosis Right wrist pain Pain in joint, forearm Chief Complaint f/u DM1f/u DM1f/u DM1f/u DM1f/u DM1 Medications Administered Section Inactive Administered Medications - up to 3 most recent administrations Medication Order MAR Action Action Date Dose Rate Site dextrose 50% in water 25 g syringe 25 g, INTRAVENOUS, ONCE, 1 dose, On Sun09/21/21 at 1530, - NONCYTOTOXIC VESICANT - Given 09/21/2021 3:15 PM EDT 25 g NaCl 0.9% iv infusion INTRAVENOUS, X (ONE-STEP ONLY) CONTINUOUS PRN, Starting on Sun09/21/21 at 1515, Until Sun09/21/21 at 1515 New Bag/Syringe/Bottle 09/21/2021 3:15 PM EDT 500 mL Inactive Administered Medications - up to 3 most recent administrations Medication Order MAR Action Action Date Dose Rate Site cefTRIAXone 1 g intramuscular injection (ROCEPHIN) 1 g, INTRAMUSCULAR, ONCE (UP TO 30 DAYS AMB), 1 dose, On 01/30/22 at 0800, Please document the antimicrobial indication: Prophylaxis Given 01/30/2022 9:52 AM EDT 1 g Buttocks, Left Reason for Referral Specialty Diagnoses / Procedures Referred By Humza t Referred To Contact CT IMAGING Diagnoses History of bladder cancer Abdominal pain, unspecified abdominal location Procedures CT ABD/PEL W IVCON CT ABD & PELVIS W/CONTRAST Peterson Gonsalez MD [address] [place] [address] Ct Imaging Referral ID Status Reason Start Date Expiration Date Visits Requested Visits Authorized [id number] Pending Review Auto-Generat ed Referral 10/11/2021 11/10/2022 1 1 Specialty Diagnoses / Procedures Referred By Contac t Referred To Contact CT IMAGING Diagnoses Malignant neoplasm of urinary bladder, unspecified site (HCC) Procedures CT UROGRAM WO/W IVCON CT ABD & PELVIS W/O CONTRST 1+ BODY REGNS Peterson Gonsalez MD [address] [place] [address] Ct Imaging Referral ID Status Reason Start Date Expiration Date Visits Requested Visits Authorized [id number] Pending Review Auto-Generat ed Referral 11/30/2021 12/30/2022 1 1 Specialty Diagnoses / Procedures Referred By Contac t Referred To Contact CT IMAGING Diagnoses Malignant neoplasm of urinary bladder, unspecified site (HCC) Procedures CT CHEST W IVCON DIAGNOSTIC COMPUTED TOMOGRAPHY THORAX W/CONTRAST Peterson Gonsalez MD [address] [place] [address] Ct Imaging Referral ID Status Reason Start Date Expiration Date Visits Requested Visits Authorized [id number] Pending Review Auto-Generat ed Referral 04/16/2022 03/02/2023 1 1 Referral ID Status Reason Start Date Expiration Date Visits Requested Visits Authorized [id number] Pending Review Auto-Generat ed Referral 04/16/2022 03/02/2023 1 1 Specialty Diagnoses / Procedures Referred By Contac t Referred To Contact [facility] Diagnoses Chronic low back pain without sciatica, unspecified back pain laterality Procedures CONSULT TO PHYSICAL THERAPY PHYSICAL THERAPY EVALUATION HIGH COMPLEX [address] [place] [address] [address] [address] [place] [address] [facility] [place] [address] Referral ID Status Reason Start Date Expiration Date Visits Requested Visits Authorized [id number] Pending Review Auto-Generat ed Referral 03/13/2023 1 1 Specialty Diagnoses / Procedures Referred By Contac t Referred To Contact CT IMAGING Diagnoses History of bladder cancer Procedures CT CHEST W IVCON DIAGNOSTIC COMPUTED TOMOGRAPHY THORAX W/CONTRAST Peterson Gonsalez MD [address] [place] [address] Ct Imaging Referral ID Status Reason Start Date Expiration Date Visits Requested Visits Authorized [id number] Pending Review Auto-Generat ed Referral 05/02/2023 06/01/2023 1 1 Specialty Diagnoses / Procedures Referred By Contac t Referred To Contact CT IMAGING Diagnoses History of bladder cancer Procedures CT UROGRAM WO/W IVCON CT ABD & PELVIS W/O CONTRST 1+ BODY REGNS Peterson Gonsalez MD [address] [place] [address] Ct Imaging Referral ID Status Reason Start Date Expiration Date Visits Requested Visits Authorized [id number] Pending Review Auto-Generat ed Referral 05/02/2023 06/01/2023 1 1 Specialty Diagnoses / Procedures Referred By Contac t Referred To Contact Diagnoses History of bladder cancer Procedures CONSULT TO PALLIATIVE CARE OFFICE/OUTPATIENT [facility] 60-74 MINUTES Peterson Gonsalez MD [address] [place] [address] Referral ID Status Reason Start Date Expiration Date Visits Requested Visits Authorized [id number] Authorized PCP Requested Referral 05/02/2022 05/02/2023 1 1 Specialty Diagnoses / Procedures Referred By Contac t Referred To Contact MR IMAGING Diagnoses Cervicalgia Procedures MRI THORACIC SPINE WO/W IVCON MRI SPINAL CANAL THORACIC W/O & W/CONTR Jamie Miller MD [address] [place] [address] Mr Imaging Referral ID Status Reason Start Date Expiration Date Visits Requested Visits Authorized [id number] Pending Review Auto-Generat ed Referral 08/18/2022 08/18/2023 1 1 Specialty Diagnoses / Procedures Referred By Contac t Referred To Contact MR IMAGING Diagnoses Cervicalgia Procedures MRI CERVICAL SPINE WO/W IVCON MRI SPINAL CANAL CERVICAL W/O & W/CONTR Jamie Miller MD [address] [facility] [place] [address] Mr Imaging Referral ID Status Reason Start Date Expiration Date Visits Requested Visits Authorized [id number] Pending Review Auto-Generat ed Referral 07/19/2022 08/18/2023 1 1 Specialty Diagnoses / Procedures Referred By Contac t Referred To Contact MR IMAGING Diagnoses Cervicalgia Procedures MRI BRAIN WO/W IVCON MRI BRAIN BRAIN STEM W/O W/CONTRAST MATERIAL Jamie Guardado MD [address] [place] [address] Mr Imaging Referral ID Status Reason Start Date Expiration Date Visits Requested Visits Authorized [id number] Pending Review Auto-Generat ed Referral 08/18/2022 08/18/2023 1 1 Specialty Diagnoses / Procedures Referred By Contac t Referred To Contact CT IMAGING Diagnoses Other hydrocephalus (HCC) Procedures CT BRAIN WO IVCON CT HEAD/BRAIN W/O CONTRAST MATERIAL Ambar Oconnor MD [phone] Imaging Referral ID Status Reason Start Date Expiration Date Visits Requested Visits Authorized [id number] Pending Review Auto-Generat ed Referral OON/Self Pay Override 08/03/2022 08/19/2023 1 1 Specialty Diagnoses / Procedures Referred By Contac t Referred To Contact CT IMAGING Diagnoses Other hydrocephalus (HCC) Procedures CT BRAIN WO IVCON CT HEAD/BRAIN W/O CONTRAST MATERIAL Marlene Cordero PA-C [id number] Imaging Referral ID Status Reason Start Date Expiration Date Visits Requested Visits Authorized [id number] Pending Review Auto-Generat ed Referral 08/25/2022 09/24/2023 1 1 Referral ID Status Reason Start Date Expiration Date Visits Requested Visits Authorized [id number] Pending Review Auto-Generat ed Referral 09/21/2022 10/21/2023 1 1 Referral ID Status Reason Start Date Expiration Date V isits Requested Visits Authorized [id number] Closed Auto-Generate d Referral 08/30/2022 04/15/2023 1 1 Specialty Diagnoses / Procedures Referred By Contac t Referred To Contact CT IMAGING Diagnoses Other hydrocephalus (HCC) Procedures CT BRAIN WO IVCON CT HEAD/BRAIN W/O CONTRAST MATERIAL Marlene Cordero PA-C [address] [place] [address] Ct Imaging [facility] Referral ID Status Reason Start Date Expiration Date Visits Requested Visits Authorized [id number] Pending Review Auto-Generat ed Referral 12/14/2022 01/13/2024 1 1 Specialty Diagnoses / Procedures Referred By Contac t Referred To Contact CT IMAGING Diagnoses History of bladder cancer Procedures CT CHEST W IVCON DIAGNOSTIC COMPUTED TOMOGRAPHY THORAX W/CONTRAST Peterson Gonsalez MD [id number] Imaging [facility] Referral ID Status Reason Start Date Expiration Date Visits Requested Visits Authorized [id number] Pending Review Auto-Generat ed Referral 01/09/2023 02/08/2024 1 1 Specialty Diagnoses / Procedures Referred By Contac t Referred To Contact CT IMAGING Diagnoses History of bladder cancer Procedures CT UROGRAM WO/W IVCON CT ABD & PELVIS W/O CONTRST 1+ BODY REGNS Peterson Gonsalez MD [id number] Imaging [facility] Referral ID Status Reason Start Date Expiration Date Visits Requested Visits Authorized [id number] Pending Review Auto-Generat ed Referral 07/10/2023 02/08/2024 1 1 Specialty Diagnoses / Procedures Referred By Contac t Referred To Contact [facility] Diagnoses Closed nondisplaced transverse fracture of left patella, initial encounter Procedures CONSULT TO PHYSICAL THERAPY PHYSICAL THERAPY EVALUATION HIGH COMPLEX 45 MINS Aashish Monge PA-C [address] [place] [address] [facility] [place] [phone] Referral ID Status Reason Start Date Expiration Date Visits Requested Visits Authorized [id number] Pending Review Auto-Generat ed Referral 06/21/2023 06/20/2024 1 1 Specialty Diagnoses / Procedures Referred By Contac t Referred To Contact XR IMAGING Diagnoses Closed nondisplaced transverse fracture of left patella, initial encounter Procedures XR KNEE LIMITED 2V AP/LAT LEFT RADIOLOGIC EXAMINATION KNEE 1/2 VIEWS Aashish Monge PA-C [address] [phone] [place] [address] Referral ID Status Reason Start Date Expiration Date Visits Requested Visits Authorized [id number] Pending Review Auto-Generat ed Referral 06/21/2023 07/20/2024 1 1 Chief Complaint and Reason for Visit Chief Complaint post surgery,abd rocio n Reason for Visit Abdominal pain Altered mental status Unable to care for self Chief Complaint Open Wound Reason for Visit Bladder cancer Limited mobility Thin build in adult Type 1 diabetes mellitus Walker as ambulation aid Pressure ulcer of sacral region, stage 3 Chief Complaint Open Wound r00.2 Reason for Visit Bladder cancer Limited mobility Thin build in adult Type 1 diabetes mellitus Walker as ambulation aid Pressure ulcer of sacral region, stage 3 Health Concerns Infection Onset Date Last Indicated Resolved Time COVID-19 Rule-Out 12/16/2021 12/16/2021 12/16/2021 9:50 PM EDT COVID-19 Rule-Out 01/09/2022 01/09/2022 01/09/2022 2:32 AM EDT Infection Onset Date Last Indicated Resolved Time COVID-19 Rule-Out 07/19/2022 07/19/2022 07/19/2022 3:07 PM EDT Additional Source Comments INFORMATION SOURCE (unrecogn ized section and content) DATE CREATED AUTHOR 06/15/2019 A[facility] Goyal [facility] [place] DATE CREATED AUTHOR AUTHOR'S ORGANIZ ATION 02/03/2021 [facility] DATE CREATED AUTHOR AUTHOR'S ORGANIZ ATION 02/12/2021 [facility] DATE CREATED AUTHOR AUTHOR'S ORGANIZ ATION 03/01/2022 [facility] DATE CREATED AUTHOR AUTHOR'S ORGANIZ ATION 04/26/2022 [facility] DATE CREATED AUTHOR AUTHOR'S ORGANIZ ATION 06/09/2022 [facility] DATE CREATED AUTHOR AUTHOR'S ORGANIZ ATION 08/02/2022 [facility] DATE CREATED AUTHOR AUTHOR'S ORGANIZ ATION 09/26/2022 [facility] DATE CREATED AUTHOR AUTHOR'S ORGANIZ ATION 10/30/2022 [facility] DATE CREATED AUTHOR AUTHOR'S ORGANIZ ATION 12/19/2022 [facility] [place] DATE CREATED AUTHOR AUTHOR'S ORGANIZ ATION 06/21/2023 [facility] DATE CREATED AUTHOR AUTHOR'S ORGANIZ ATION 06/23/2023 [facility] l Source Comments (unrecognize d section and content) In the event this informatio n is protected by the Federal Confidentiality of Alcohol and Drug Abuse Patient Records regulations: The Federal rules restrict any use of the information to criminally investigate or prosecute any alcohol or drug abuse patient.[facility] Center[facility] the event this information is protected by the Federal Confidentiality of Alcohol and Drug Abuse Patient Records regulations: The Federal rules restrict any use of the information to criminally investigate or prosecute any alcohol or drug abuse patient.[facility] CenterIn the event this information is protected by the Federal Confidentiality of Alcohol and Drug Abuse Patient Records regulations: The Federal rules restrict any use of the information to criminally investigate or prosecute any alcohol or drug abuse patient.[facility] CenterIn the event this information is protected by the Federal Confidentiality of Alcohol and Drug Abuse Patient Records regulations: The Federal rules restrict any use of the information to criminally investigate or prosecute any alcohol or drug abuse patient.[facility] CenterIn the event this information is protected by the Federal Confidentiality of Alcohol and Drug Abuse Patient Records regulations: The Federal rules restrict any use of the information to criminally investigate or prosecute any alcohol or drug abuse patient.[facility] CenterIn the event this information is protected by the Federal Confidentiality of Alcohol and Drug Abuse Patient Records regulations: The Federal rules restrict any use of the information to criminally investigate or prosecute any alcohol or drug abuse patient.[facility] CenterIn the event this information is protected by the Federal Confidentiality of Alcohol and Drug Abuse Patient Records regulations: The Federal rules restrict any use of the information to criminally investigate or prosecute any alcohol or drug abuse patient.[facility] CenterIn the event this information is protected by the Federal Confidentiality of Alcohol and Drug Abuse Patient Records regulations: The Federal rules restrict any use of the information to criminally investigate or prosecute any alcohol or drug abuse patient.[facility] CenterIn the event this information is protected by the Federal Confidentiality of Alcohol and Drug Abuse Patient Records regulations: The Federal rules restrict any use of the information to criminally investigate or prosecute any alcohol or drug abuse patient.[facility] CenterIn the event this information is protected by the Federal Confidentiality of Alcohol and Drug Abuse Patient Records regulations: The Federal rules restrict any use of the information to criminally investigate or prosecute any alcohol or drug abuse patient.[facility] CenterIn the event this information is protected by the Federal Confidentiality of Alcohol and Drug Abuse Patient Records regulations: The Federal rules restrict any use of the information to criminally investigate or prosecute any alcohol or drug abuse patient.[facility] CenterIn the event this information is protected by the Federal Confidentiality of Alcohol and Drug Abuse Patient Records regulations: The Federal rules restrict any use of the information to criminally investigate or prosecute any alcohol or drug abuse patient.[facility] CenterIn the event this information is protected by the Federal Confidentiality of Alcohol and Drug Abuse Patient Records regulations: The Federal rules restrict any use of the information to criminally investigate or prosecute any alcohol or drug abuse patient.[facility] CenterIn the event this information is protected by the Federal Confidentiality of Alcohol and Drug Abuse Patient Records regulations: The Federal rules restrict any use of the information to criminally investigate or prosecute any alcohol or drug abuse patient.[facility] CenterIn the event this information is protected by the Federal Confidentiality of Alcohol and Drug Abuse Patient Records regulations: The Federal rules restrict any use of the information to criminally investigate or prosecute any alcohol or drug abuse patient.[facility] CenterIn the event this information is protected by the Federal Confidentiality of Alcohol and Drug Abuse Patient Records regulations: The Federal rules restrict any use of the information to criminally investigate or prosecute any alcohol or drug abuse patient.[facility] CenterIn the event this information is protected by the Federal Confidentiality of Alcohol and Drug Abuse Patient Records regulations: The Federal rules restrict any use of the information to criminally investigate or prosecute any alcohol or drug abuse patient.[facility] CenterIn the event this information is protected by the Federal Confidentiality of Alcohol and Drug Abuse Patient Records regulations: The Federal rules restrict any use of the information to criminally investigate or prosecute any alcohol or drug abuse patient.[facility] CenterIn the event this information is protected by the Federal Confidentiality of Alcohol and Drug Abuse Patient Records regulations: The Federal rules restrict any use of the information to criminally investigate or prosecute any alcohol or drug abuse patient.[facility] CenterIn the event this information is protected by the Federal Confidentiality of Alcohol and Drug Abuse Patient Records regulations: The Federal rules restrict any use of the information to criminally investigate or prosecute any alcohol or drug abuse patient.[facility] CenterIn the event this information is protected by the Federal Confidentiality of Alcohol and Drug Abuse Patient Records regulations: The Federal rules restrict any use of the information to criminally investigate or prosecute any alcohol or drug abuse patient.[facility] CenterIn the event this information is protected by the Federal Confidentiality of Alcohol and Drug Abuse Patient Records regulations: The Federal rules restrict any use of the information to criminally investigate or prosecute any alcohol or drug abuse patient.[facility] CenterIn the event this information is protected by the Federal Confidentiality of Alcohol and Drug Abuse Patient Records regulations: The Federal rules restrict any use of the information to criminally investigate or prosecute any alcohol or drug abuse patient.[facility] CenterIn the event this information is protected by the Federal Confidentiality of Alcohol and Drug Abuse Patient Records regulations: The Federal rules restrict any use of the information to criminally investigate or prosecute any alcohol or drug abuse patient.[facility] CenterIn the event this information is protected by the Federal Confidentiality of Alcohol and Drug Abuse Patient Records regulations: The Federal rules restrict any use of the information to criminally investigate or prosecute any alcohol or drug abuse patient.[facility] CenterIn the event this information is protected by the Federal Confidentiality of Alcohol and Drug Abuse Patient Records regulations: The Federal rules restrict any use of the information to criminally investigate or prosecute any alcohol or drug abuse patient.[facility] CenterIn the event this information is protected by the Federal Confidentiality of Alcohol and Drug Abuse Patient Records regulations: The Federal rules restrict any use of the information to criminally investigate or prosecute any alcohol or drug abuse patient.[facility] CenterIn the event this information is protected by the Federal Confidentiality of Alcohol and Drug Abuse Patient Records regulations: The Federal rules restrict any use of the information to criminally investigate or prosecute any alcohol or drug abuse patient.[facility] CenterIn the event this information is protected by the Federal Confidentiality of Alcohol and Drug Abuse Patient Records regulations: The Federal rules restrict any use of the information to criminally investigate or prosecute any alcohol or drug abuse patient.[facility] CenterIn the event this information is protected by the Federal Confidentiality of Alcohol and Drug Abuse Patient Records regulations: The Federal rules restrict any use of the information to criminally investigate or prosecute any alcohol or drug abuse patient.[facility] CenterIn the event this information is protected by the Federal Confidentiality of Alcohol and Drug Abuse Patient Records regulations: The Federal rules restrict any use of the information to criminally investigate or prosecute any alcohol or drug abuse patient.[facility] CenterIn the event this information is protected by the Federal Confidentiality of Alcohol and Drug Abuse Patient Records regulations: The Federal rules restrict any use of the information to criminally investigate or prosecute any alcohol or drug abuse patient.[facility] CenterIn the event this information is protected by the Federal Confidentiality of Alcohol and Drug Abuse Patient Records regulations: The Federal rules restrict any use of the information to criminally investigate or prosecute any alcohol or drug abuse patient.[facility] CenterIn the event this information is protected by the Federal Confidentiality of Alcohol and Drug Abuse Patient Records regulations: The Federal rules restrict any use of the information to criminally investigate or prosecute any alcohol or drug abuse patient.[facility] CenterIn the event this information is protected by the Federal Confidentiality of Alcohol and Drug Abuse Patient Records regulations: The Federal rules restrict any use of the information to criminally investigate or prosecute any alcohol or drug abuse patient.[facility] CenterIn the event this information is protected by the Federal Confidentiality of Alcohol and Drug Abuse Patient Records regulations: The Federal rules restrict any use of the information to criminally investigate or prosecute any alcohol or drug abuse patient.[facility] CenterIn the event this information is protected by the Federal Confidentiality of Alcohol and Drug Abuse Patient Records regulations: The Federal rules restrict any use of the information to criminally investigate or prosecute any alcohol or drug abuse patient.[facility] CenterIn the event this information is protected by the Federal Confidentiality of Alcohol and Drug Abuse Patient Records regulations: The Federal rules restrict any use of the information to criminally investigate or prosecute any alcohol or drug abuse patient.[facility] CenterIn the event this information is protected by the Federal Confidentiality of Alcohol and Drug Abuse Patient Records regulations: The Federal rules restrict any use of the information to criminally investigate or prosecute any alcohol or drug abuse patient.[facility] CenterIn the event this information is protected by the Federal Confidentiality of Alcohol and Drug Abuse Patient Records regulations: The Federal rules restrict any use of the information to criminally investigate or prosecute any alcohol or drug abuse patient.[facility] CenterIn the event this information is protected by the Federal Confidentiality of Alcohol and Drug Abuse Patient Records regulations: The Federal rules restrict any use of the information to criminally investigate or prosecute any alcohol or drug abuse patient.[facility] CenterIn the event this information is protected by the Federal Confidentiality of Alcohol and Drug Abuse Patient Records regulations: The Federal rules restrict any use of the information to criminally investigate or prosecute any alcohol or drug abuse patient.[facility] CenterIn the event this information is protected by the Federal Confidentiality of Alcohol and Drug Abuse Patient Records regulations: The Federal rules restrict any use of the information to criminally investigate or prosecute any alcohol or drug abuse patient.[facility] CenterIn the event this information is protected by the Federal Confidentiality of Alcohol and Drug Abuse Patient Records regulations: The Federal rules restrict any use of the information to criminally investigate or prosecute any alcohol or drug abuse patient.[facility] Reason for Visit (unrecogniz ed section and content) Reason Comments Established Patient Specialty Diagnoses / Procedures Referred By Contac t Referred To Contact NEUROLOGICAL HOLINESS Diagnoses NPH (normal pressure hydrocephalus) ([facility]) Procedures Shunt Follow Up Marlene Cordero PA-C [address] [place] [address] [address] [id number] Referral ID Status Reason Start Date Expiration Date Visits Requested Visits Authorized [id number] Pending Review OON/Self Pay Override 07/20/2022 01/16/2023 1 1 Reason Comments Appointment Reason Comments Request Outside Medical Records Reason Comments Nausea & Vomiting Specialty Diagnoses / Procedures Referred By Contac t Referred To Contact Gastroenterology Diagnoses Nausea and vomiting, unspecified vomiting type Procedures CONSULT TO GASTROENTEROLOGY OFFICE/OUTPATIENT NEW HIGH MDM 60-74 MINUTES Peterson Gonsalez MD [address] [place] [address] Referral ID Status Reason Start Date Expiration Date V isits Requested Visits Authorized [id number] Closed PCP Requested Referral 06/15/2021 06/15/2022 1 1 Reason Comments Lab Orders Reason Comments Results Reason Comments Follow Up CT SCAN 10-25-21 Appointment Cancelled Reason Comments Results Patient Update Reason Comments Orders Reason Comments Patient Update Reason Comments Appointment Confirmation Reason Comments Follow Up Phone Call All clear Reason Comments Established Patient Specialty Diagnoses / Procedures Referred By Humza carter Referred To Contact Urology / UROLOGY Diagnoses Malignant neoplasm of bladder, unspecified CYSTOSCOPY (via her ileal conduit) and stent removal Procedures CYSTOSCOPY AND TREATMENT [place] [address] [place] [address] Peterson Gonsalez MD [address] [place] [address] Referral ID Status Reason Start Date Expiration Date Visits Re quested Visits Authorized [id number] Closed 01/18/2022 04/15/2022 1 1 Reason Comments Patient Question Reason Comments Sooner appointment request Reason Comments Post Op Reason Comments Reason Comments Follow Up Specialty Diagnoses / Procedures Referred By Humza carter Referred To Contact UROLOGY Diagnoses Bladder cancer (HCC) Procedures OFFICE VISIT, EST PT., LEVEL 2 [place] [address] [place] [address] [facility] [address] [place] [address] Referral ID Status Reason Start Date Expiration Date V isits Requested Visits Authorized [id number] Closed OON/Self Pay Override 08/01/2022 09/14/2022 1 1 Reason Comments Established Patient Shunt follow up Specialty Diagnoses / Procedures Referred By Humza carter Referred To Contact INFECTIOUS DISEASES Diagnoses Fungal meningitis Procedures HOSPITAL OUTPT CLIN[facility] VISIT fungal meningitis Jamie Guardado MD [address] [place] [address] [address] [place] [address] Referral ID Status Reason Start Date Expiration Date V isits Requested Visits Authorized [id number] Closed OON/Self Pay Override 07/20/2022 10/18/2022 1 1 Specialty Diagnoses / Procedures Referred By Contac t Referred To Contact CT IMAGING Diagnoses Other hydrocephalus (HCC) Procedures CT BRAIN WO IVCON CT HEAD/BRAIN W/O CONTRAST MATERIAL Marlene Cordero PA-C [id number] [place] [id number] Imaging Referral ID Status Reason Start Date Expiration Date V isits Requested Visits Authorized [id number] Closed Auto-Generate d Referral 08/30/2022 04/15/2023 1 1 Specialty Diagnoses / Procedures Referred By Contac t Referred To Contact CT IMAGING Diagnoses Colitis Procedures CT ABDOMEN W IVCON CT ABDOMEN W/CONTRAST Peterson Gonsalez MD [address] [place] [address] Ct Imaging Referral ID Status Reason Start Date Expiration Date V isits Requested Visits Authorized [id number] Closed Auto-Generat ed Referral Clearance Not Met - Admin/Chairm an/Director Advise to Postpone/Res chedule or Not Proceed 07/13/2021 04/15/2022 1 1 Reason Comments Established Patient Follow up Reason Comments Follow Up Reason Comments Urinary supply problem Care Teams (unrecognized sec tion and content) Team Status: Active Member Role Status Dates Juliette Berumen DO Primary Care Provider Active Team Status: Inactive Member Role Status Dates Juliette Berumen DO Primary Care Provider Active Marjorie Headley APRN Attending Provider Active Advertising Campaign Manager Relationship Specialty Start Date End Date Kalli White MD [address] [place] [address] PCP - General Family Practice 02/10/21 Advertising Campaign Manager Relationship Specialty Start Date End Date Kalli White MD [address] [place] [address] PCP - General Family Practice 02/10/21 Advertising Campaign Manager Relationship Specialty Start Date End Date Kalli White MD [address] [place] [place] [place] [address] PCP - General Family Practice 02/10/21 Advertising Campaign Manager Relationship Specialty Start Date End Date Kalli White MD [address] [place] [address] PCP - General Family Practice 02/10/21 Advertising Campaign Manager Relationship Specialty Start Date End Date Kalli White MD [address] [place] [address] PCP - General Family Practice 02/10/21 Advertising Campaign Manager Relationship Specialty Start Date End Date Kalli White MD [address] [place] [address] PCP - General Family Practice 02/10/21 Advertising Campaign Manager Relationship Specialty Start Date End Date Kalli White MD [address] [place] [place] [address] PCP - General Family Practice 02/10/21 Advertising Campaign Manager Relationship Specialty Start Date End Date Kalli White MD [address] [place] [place] [address] PCP - General Family Practice 02/10/21 Advertising Campaign Manager Relationship Specialty Start Date End Date Kalli White MD [address] [place] [phone] PCP - General Family Practice 02/10/21 Advertising Campaign Manager Relationship Specialty Start Date End Date Kalli White MD [address] [place] [place] [address] PCP - General Family Practice 02/10/21 Advertising Campaign Manager Relationship Specialty Start Date End Date Kalli White MD [address] [place] [place] [address] PCP - General Family Medicine 02/10/21 Team Status: Inactive Member Role Status Dates Juliette Berumen , Primary Care Provider Active Raul Gong MD Emergency Provider Active Jayashree Watts MD Admit Provider, Attending Provide r Active Advertising Campaign Manager Relationship Specialty Start Date End Date Kalli White MD [address] [place] [place] [phone] PCP - General Family Medicine 02/10/21 Advertising Campaign Manager Relationship Specialty Start Date End Date Kalli White MD [address] [place] [place] [address] PCP - General Family Medicine 02/10/21 Advertising Campaign Manager Relationship Specialty Start Date End Date Kalli White MD [address] [place] [address] PCP - General Family Medicine 02/10/21 Advertising Campaign Manager Relationship Specialty Start Date End Date Kalli White MD [address] [place] [address] PCP - General Family Medicine 02/10/21 Advertising Campaign Manager Relationship Specialty Start Date End Date Kalli White MD [address] [place] [address] PCP - General Family Medicine 02/10/21 Advertising Campaign Manager Relationship Specialty Start Date End Date Kalli White MD [address] [place] [address] PCP - General Family Medicine 02/10/21 Advertising Campaign Manager Relationship Specialty Start Date End Date Kalli White MD [address] [place] [address] PCP - General Family Medicine 02/10/21 Advertising Campaign Manager Relationship Specialty Start Date End Date Kalli White MD [address] [place] [place] [address] PCP - General Family Medicine 02/10/21 Advertising Campaign Manager Relationship Specialty Start Date End Date Kalli White MD [address] [place] [place] [address] PCP - General Family Medicine 02/10/21 Advertising Campaign Manager Relationship Specialty Start Date End Date Kalli White MD [address] [place] [place] [address] PCP - General Family Medicine 02/10/21 Advertising Campaign Manager Relationship Specialty Start Date End Date Kalli White MD [address] [place] [place] [address] PCP - General Family Medicine 02/10/21 Advertising Campaign Manager Relationship Specialty Start Date End Date Kalli White MD [address] [place] [place] [address] PCP - General Family Medicine 02/10/21 [employer] 06/17/22 Advertising Campaign Manager Relationship Specialty Start Date End Date Kalli White MD [address] [place] [place] [address] PCP - General Family Medicine 02/10/21 [employer] 06/17/22 Advertising Campaign Manager Relationship Specialty Start Date End Date Kalli White MD [address] [place] [place] [address] PCP - General Family Medicine 02/10/21 [employer] 06/17/22 Advertising Campaign Manager Relationship Specialty Start Date End Date Kalli White MD [address] [place] [address] PCP - General Family Medicine 02/10/21 [employer] 06/17/22 Advertising Campaign Manager Relationship Specialty Start Date End Date Kalli White MD [address] [place] [address] PCP - General Family Medicine 02/10/21 [employer] 06/17/22 Advertising Campaign Manager Relationship Specialty Start Date End Date Kalli White MD [address] [place] [address] PCP - General Family Medicine 02/10/21 [employer] 06/17/22 Advertising Campaign Manager Relationship Specialty Start Date End Date Kalli White MD [address] [place] [place] [address] PCP - General Family Medicine 02/10/21 [employer] 06/17/22 Team Status: Inactive Member Role Status Dates Juliette Berumen , Primary Care Provider, Attending Pr jessie Active Advertising Campaign Manager Relationship Specialty Start Date End Date Kalli White MD [address] [place] [address] PCP - General Family Medicine 02/10/21 [employer] 06/17/22 Advertising Campaign Manager Relationship Specialty Start Date End Date Kalli White MD [address] [place] [place] [phone] PCP - General Family Medicine 02/10/21 [employer] 06/17/22 Advertising Campaign Manager Relationship Specialty Start Date End Date Kalli White MD [address] [facility] [place] [address] PCP - General Family Medicine 02/10/21 Advertising Campaign Manager Relationship Specialty Start Date End Date Kalli White MD [address] [place] [place] [address] PCP - General Family Medicine 02/10/21 [employer] 06/17/22 Advertising Campaign Manager Relationship Specialty Start Date End Date Kalli White MD [address] [place] [place] [address] PCP - General Family Medicine 02/10/21 [employer] 06/17/22 Advertising Campaign Manager Relationship Specialty Start Date End Date Kalli White MD [address] [place] [place] [address] PCP - General Family Medicine 02/10/21 [employer] 06/17/22 Advertising Campaign Manager Relationship Specialty Start Date End Date Kalli White MD [address] [place] [place] [address] PCP - General Family Medicine 02/10/21 [employer] 06/17/22 Advertising Campaign Manager Relationship Specialty Start Date End Date Kalli White MD [address] [facility] [place] [address] PCP - General Family Medicine 02/10/21 [employer] [facility] [employer] 06/17/22 Advertising Campaign Manager Relationship Specialty Start Date End Date Kalli White MD [address] [place] [place] [address] PCP - General Family Medicine 02/10/21 [employer] 06/17/22 Advertising Campaign Manager Relationship Specialty Start Date End Date Kalli White MD [address] [facility] [place] [address] PCP - General Family Medicine 02/10/21 [employer] 06/17/22 Goals (unrecognized section and content) Goals may be documented in a n alternate section FOR RECORDS PERTAINING TO PATIENTS WHO ARE OR HAVE BEEN ENROLLED IN A CHEMICAL DEPENDENCY/SUBSTANCEABUSE PROGRAM, SOME INFORMATION MAY BE OMITTED. This clinical summary was aggregated from multiple sources. Caution should be exercised in using it in the provision of clinical care. This summary normalizes information from multiple sources, and as a consequence, information in this document may materially change the coding, format and clinical context of patient data. In addition, data may be omitted in some cases. CLINICAL DECISIONS SHOULD BE BASED ON THE PRIMARY CLINICAL RECORDS. [facility] [employer] [facility]. provides no warranty or guarantee of the accuracy or completeness of information in this document.
--- NOTE | 2023-06-24 21:34 | CT_ITS ---
[address] [address] Patient Name: CHIKIS TOBAR MRN: [id number] date: 1965 Sex: F Assigned Patient Location: ER Current Patient Location: ED.[facility] Accession/Order Number: [id number] Exam Date: 06/24/2023 21:40 Report Date: 06/24/2023 23:17 At the request of: ISIS SILVERMAN Procedure: CT abdomen pelvis w con EXAM: CT abdomen pelvis w con HISTORY: RUQ pain COMPARISON: 02/24/2022 TECHNIQUE: Dose reduction techniques were achieved by using automated exposure control and/or adjustment of mA and/or kV according to patient size and/or use of iterative reconstruction technique.CT of the abdomen and pelvis with contrast. FINDINGS: Mild left basilar platelike atelectasis. The lung bases are otherwise clear. Heart size is normal. Small hiatal hernia. Right lower quadrant ileal conduit. Bilateral moderate hydronephrosis and hydroureter. No inguinal, pelvic or retroperitoneal adenopathy. Gallbladder is normal. Atrophy of the pancreatic parenchyma. No common bile duct dilation. No intrahepatic biliary ductal dilation. Nonobstructive punctate left kidney inferior pole stone. Mild ascites. Shunt catheter tip within the pelvis. Dilated small bowel loops of the pelvis measuring up to 4 cm in diameter, consistent with small bowel obstruction. There is thickening of the distal small bowel loops with adjacent mesenteric edema, concerning for a closed loop type obstruction. No acute osseous abnormality. CT/CT abdomen pelvis w con IMPRESSION: 1. Dilated small bowel loops of the pelvis measuring up to 4 cm in diameter, consistent with small bowel obstruction. There is thickening of the distal small bowel loops with adjacent mesenteric edema, concerning for a closed loop type obstruction. Consultation with surgery should be obtained for further management. 2. Right lower quadrant ileostomy. Bilateral moderate hydronephrosis and hydroureter. 3. Small hiatal hernia. Electronically authenticated by: FESTUS MEDELLIN Date: 06/24/2023 23:17
--- NOTE | 2023-06-24 21:36 | ECG_ITS ---
[facility] Test Date: 2023-06-24 Pat Name: CHIKIS TOBAR Department: Room: - Gender: Female [employer]ation [employer]: : 1965 Requested By: KALLI WHITE Order Number: [id number] Reading MD: JULIETTE BERUMEN Measurements Intervals [place] Rate: 106 P: 75 KS: 140 QRS: 61 QRSD: 80 T: 54 QT: 346 QTc: 408 Interpretive Statements 1120 Sinus tachycardia 9140 abnormal rhythm ECG Compared to ECG 05/27/2022 10:58:48 Ventricular premature complex(es) no longer present Electronically Signed On 06-25-2023 6:45:43 EDT by JULIETTE BERUMEN
--- NOTE | 2023-06-24 21:37 | ED.GENADUL1 ---
HPI - General Adult General Chief complaint: Nausea/Vomiting/Diarrhea Stated complaint: Nausea/Vomiting Time Seen by Provider: 06/24/23 21:17 Source: patient Mode of arrival: Wheelchair History of Present Illness HPI narrative: 58-year-old female to the emergency department with chief complaint of upper abdominal pain, nausea, vomiting. Patient reports symptoms began suddenly at 4 PM. She denies any diarrhea. She does report fever and chills. She denies any chest pain or shortness of breath. She had a similar episode a few weeks ago for which she saw her doctor. No imaging has been performed. She took no medications prior to arrival. She talked to her physician luis who recommended she come to the emergency department for evaluation. She has a history of urostomy secondary to bladder cancer performed at the [facility] in 2021. Related Data Previous Rx's Medication Instructions Recorded hydrocodone 5 mg-acetaminophen 325 1 tab PO Q6H PRN pain 3 days #12 04/11/23 mg tablet tabs ondansetron 4 mg disintegrating 4 mg PO Q6H PRN nausea and 04/11/23 tablet vomiting #12 tabs bacitracin 500 unit/gram topical 1 applic topical BID 7 days #14 06/24/23 ointment grams Allergies Allergy/AdvReac Type Severity Reaction Status Date / Time cyclobenzaprine Allergy Intermediate Hives Verified 04/11/23 18:22 [From Flexeril] meperidine [From Demerol] Allergy Intermediate Nausea Verified 04/11/23 18:22 midazolam [From Versed] Allergy Intermediate Verified 04/11/23 18:22 orphenadrine [From Norflex] Allergy Intermediate Hives Verified 04/11/23 18:22 Review of Systems ROS Status of ROS 10 or more systems reviewed and unremarkable except as noted in history and below Exam Narrative Exam Narrative: VITALS: I have reviewed the triage vital signs. GENERAL: Well developed, well appearing adult in no acute distress. NEURO: Alert and oriented. Moves all extremities. Face is symmetric and expressive. EYES: PERRL. No scleral icterus or conjunctival injection. No discharge. HENT: Normocephalic, atraumatic. Hearing is grossly intact. Nares grossly patent and without discharge. Mucous membranes moist. NECK: No JVD. Patient moves neck without restriction. CARDIO: Rhythm regular. Normal rate. No murmur, rub, or gallop. Pulses equal bilaterally in the upper and lower extremity. No lower extremity edema. PULM: Lungs clear to auscultation in all taylor. No wheezes, rales, or rhonchi. No conversational dyspnea. No splinting, stridor, or accessory muscle use. GI/: Abdomen is soft. Mild right upper quadrant tenderness. Urostomy intact with healthy-appearing stoma. No rebound or guarding. EXTREMITIES: Symmetric muscle bulk. No joint swelling. No clubbing, cyanosis, or deformity. SKIN: Warm and dry. Normal turgor. No rash or lesions appreciated. PSYCH: Mood, affect, and interaction is appropriate to the setting. Constitutional Vital Signs, click to edit/add: Last Vital Signs Temp 100.6 F H 06/24/23 21:21 Pulse 117 H 06/25/23 02:40 Resp 24 06/24/23 21:50 BP 140/68 06/25/23 02:30 Pulse Ox 97 06/25/23 00:40 O2 Del Method Room Air 06/24/23 21:21 Course Vital Signs Vital signs: Vital Signs Temperature 100.6 F H 06/24/23 21:21 Pulse Rate 111 H 06/24/23 21:21 Respiratory Rate 20 06/24/23 21:21 Blood Pressure 198/83 H 06/24/23 21:21 Pulse Oximetry 96 06/24/23 21:21 Oxygen Delivery Method Room Air 06/24/23 21:21 Temperature 100.6 F H 06/24/23 21:21 Pulse Rate 117 H 06/25/23 02:40 Respiratory Rate 24 06/24/23 21:50 Blood Pressure 140/68 06/25/23 02:30 Pulse Oximetry 97 06/25/23 00:40 Oxygen Delivery Method Room Air 06/24/23 21:21 Medical Decision Making MDM Narrative Medical decision making narrative: Well-appearing 58-year-old female to the emergency department with chief complaint of abdominal pain in the right upper quadrant radiating to the back. Vital stable, patient is afebrile. She is mildly tender on exam, no peritoneal signs. Toradol, Bentyl, Zofran, fluids are ordered for symptom control. Basic labs are ordered. We'll obtain a CT scan of the abdomen pelvis to evaluate for acute cholecystitis given the worsening episodic nature she describes. Patient agrees with this plan. Labwork reviewed and noted. No significant abnormalities. CT scan shows a closed loop obstruction with some bowel wall edema. Patient reexamined in the room. She is becoming increasingly tachycardic. She has increasing pain despite several rounds of pain medication. Zosyn ordered. Case was discussed with Dr. Hanson the on-call general surgeon who recommends transfer to a larger facility given her complex urologic surgery history. I discussed findings with the patient. Her previous surgeries were performed at [facility]. She has a strong preference to return to [facility] for her care. Discussed with the patient extended geographic distance to this facility as well as often prolonged wait times for transfer to the [facility]. I suggested several closer facilities that would shorten her time to general surgery evaluation/ treatment including [facility], [facility], [facility] which she declines at this time. A call was placed to [facility]. After several follow-up calls [facility] was ableto put me on the phone with a surgeon. I spoke to Dr. Stanley who accepts the patient pending bed. [facility] transfer line will not provide any information about transfer times or bed availability for this patient who needs urgent surgical evaluation. I discussed unknown transfer time with the patient. She is agreeable for discussion with other facilities. I discussed with Dr. Cisneros at [facility] who was willing to accept if Urology is available to assist given the Urostomy in the region of the closed loop obstruction and possible need for revision. I discussed with the Urologist who is partition notcher at both [facility], and [facility], Dr. Husain, who is not available to help with the procedure tonight and recommends transfer. Discussed transfer again with patient. She has preference for [facility]. A call was placed to [facility] as recommended by Dr. Cisneros. [facility] accepted the patient to the service of Dr. Bradley Hernandez ([facility]) as an ED to ED transfer. Given lack of ground transport (earliest available 814) and need for urgent surgical evaluation we will transfer by [facility]. Patient agrees with this plan. [facility] dispatched. Several attempts were made at NG tube, patient declined further attempts. Patient remains in fair condition. She remains tachycardic despite 2L crystalloid. She continues to have severe pain despite multiple doses of narcotic pain medications. She was transferred to [facility] for further treatment of her closed loop bowel obstruction. Sky Turcios DO, [facility] Medical Records Medical records reviewed: Yes I reviewed the patient's medical records Lab Data Lab results reviewed: Yes I reviewed the patient's lab results Labs: Lab Results 06/24/23 06/24/23 Range/Units 21:44 21:48 WBC 8.8 (4.0-11.0) 10^3/uL RBC 4.50 (4.20-5.40) 10^6/uL Hgb 13.3 (12.0-16.0) g/dL Hct 41.0 (36.0-48.0) % MCV 91.1 (81.0-99.0) fL MCH 29.6 (26.7-34.0) pg MCHC 32.4 (29.9-35.2) g/dL RDW 14.5 (11.0-15.0) % Plt Count 265 (150-450) 10^3/uL MPV 9.7 (9.5-13.5) fL Neut % (Auto) 93.4 H (43.0-75.0) % Lymph % (Auto) 3.6 L (20.5-60.0) % [place] % (Auto) 2.5 (1.7-12.0) % Eos % (Auto) 0.0 L (0.9-7.0) % Baso % (Auto) 0.2 (0.2-2.0) % Neut # (Auto) 8.2 H (1.4-6.5) 10^3/uL Lymph # (Auto) 0.3 L (1.2-3.8) 10^3/uL [place] # (Auto) 0.2 L (0.3-0.8) 10^3/uL Eos # (Auto) 0.0 (0.0-0.7) 10^3/uL Baso # (Auto) 0.0 (0.0-0.1) 10^3/uL Abs Immat Gran (auto) 0.03 (0.00-0.03) 10^3/uL Imm/Tot Granulo (auto) 0.3 (0.0-0.5) % Sodium 140 (136-145) mmol/L Potassium 3.8 (3.5-5.1) mmol/L Chloride 104 (98-107) mmol/L Carbon Dioxide 24.2 (21.0-32.0) mmol/L Anion Gap 15.6 BUN 23.0 H (7.0-18.0) mg/dL Creatinine 0.94 (0.55-1.02) mg/dL Est GFR ( Amer) >60 (>=60) Est GFR (Non-Af Amer) >60 (>=60) BUN/Creatinine Ratio 24.5 Glucose 208 H (74-106) mg/dL Lactate 1.7 (0.4-2.0) mmol/L Calcium 9.3 (8.5-10.1) mg/dL Total Bilirubin 0.7 (0.2-1.0) mg/dL AST 18 (15-37) U/L ALT 24 (14-59) U/L Alkaline Phosphatase 96 (46-116) U/L Troponin I High Sens 9.9 (4.0-51.3) pg/mL Total Protein 7.7 (6.4-8.2) g/dL Albumin 3.9 (3.4-5.0) g/dL Globulin 3.8 g/dL Albumin/Globulin Ratio 1.0 Lipase 12.0 L (16.0-77.0) U/L Urine Color Lt. yellow (YELLOW) Urine Clarity Clear (CLEAR) Urine pH 8.5 (5.0-9.0) Ur Specific [place] 1.010 (1.005-1.025) Urine Protein 100 A (NEG/TRACE) mg/dL Urine Glucose (UA) Negative (NEGATIVE) mg/dL Urine Ketones Negative (NEGATIVE) mg/dL Urine Occult Blood Moderate A (NEGATIVE) Urine Nitrite Negative (NEGATIVE) Urine Bilirubin Negative (NEGATIVE) Urine Urobilinogen 0.2 (0.2-1.0) EU/dL Ur Leukocyte Esterase Trace A (NEGATIVE) Urine RBC 0-2 (0-2) #/HPF Urine WBC 5-10 A (NONE SEEN) #/HPF Ur Squamous Epith Cells None seen (NONE/RARE) #/LPF Urine Crystals None seen (None Seen) #/HPF Urine Bacteria Large A (NONE SEEN) #/HPF Urine Casts None seen (NONE SEEN) #/LPF Urine Mucus None seen (NONE SEEN) Ur Culture Indicated? Yes Imaging Data CT scan - abdomen: Radiologist's impression: ITS Impressions Abdomen/Pelvis CT 06/24/23 21:34 IMPRESSION: 1. Dilated small bowel loops of the pelvis measuring up to 4 cm in diameter, consistent with small bowel obstruction. There is thickening of the distal small bowel loops with adjacent mesenteric edema, concerning for a closed loop type obstruction. Consultation with surgery should be obtained for further management. 2. Right lower quadrant ileostomy. Bilateral moderate hydronephrosis and hydroureter. 3. Small hiatal hernia. Electronically authenticated by: FESTUS MEDELLIN Date: 06/24/2023 23:17 ECG Data Attestation: I personally reviewed and interpreted this ECG as follows: (Sinus tachycardia. No STEMI. Normal QTC.) Critical Care Time Critical Care Time Critical Care Time: Yes Total Critical Care Time: 90 Attestation: Critical Care Procedure Note Authorized and Performed by: Sky Turcios DO Total critical care time: 90 min Due to a high probability of clinically significant, life threatening deterioration, the patient required my highest level of preparedness to intervene emergently and I personally spent this critical care time directly and personally managing the patient. This critical care time included obtaining a history; examining the patient; pulse oximetry; ordering and review of studies; arranging urgent treatment with development of a management plan; evaluation of patient's response to treatment; frequent reassessment; and, discussions with other providers. This critical care time was performed to assess and manage the high probability of imminent, life-threatening deterioration that could result in multi-organ failure. It was exclusive of separately billable procedures and treating other patients and teaching time. Please see MDM section and the rest of the note for further information on patient assessment and treatment. Discharge Plan Discharge Chief Complaint: Nausea/Vomiting/Diarrhea Clinical Impression: Bowel obstruction, Tachycardia Patient Disposition: [facility] Time of Disposition Decision: 03:03 Discharge Location: [facility] Condition: Fair Mode of Transportation: Life [employer]
[2023-06-24] MEDS: 0.9 % SODIUM CHLORIDE 1,000 ML 999 ML IV (21:51)
[2023-06-24] MEDS: KETOROLAC TROMETHAMINE 30 MG/ML VIAL 15 MG IVP (21:52)
[2023-06-24] MEDS: ONDANSETRON PF 4 MG/2 ML VIAL IV (21:53)
[2023-06-24] MEDS: DICYCLOMINE HCL 20 MG/2 ML VIAL IM (21:53)
[2023-06-24 21:55] LABS: Bilirubin Urine NEGATIVE (NEGATIVE); Blood Urine MODERATE (NEGATIVE); Clarity Urine CLEAR (CLEAR); Color Urine LT. YELLOW (YELLOW); Glucose Urine UA NEGATIVE (NEGATIVE); Ketones Urine NEGATIVE (NEGATIVE); Leukocyte Esterase Urine TRACE (NEGATIVE); Nitrite Urine NEGATIVE (NEGATIVE); Protein Urine 100 mg/dL (NEG/TRACE); Urobilinogen Urine 0.2 EU/dL (0.2-1.0); pH Urine 8.5 (5.0-9.0)
[2023-06-24 21:55] LABS: Basophils Percent Auto 0.2 % (0.2-2.0); Hemoglobin 13.3 g/dL (12.0-16.0); Immature Granulocytes Abs Auto 0.03 10^3/uL (0.00-0.03); Immature Granulocytes Pct Auto 0.3 % (0.0-0.5); Lymphocytes Absolute Auto 0.3 10^3/uL (1.2-3.8); Lymphocytes Percent Auto 3.6 % (20.5-60.0); Mean Corpuscular HGB Conc 32.4 g/dL (29.9-35.2); Mean Corpuscular Hemoglobin 29.6 pg (26.7-34.0); Mean Corpuscular Volume 91.1 fL (81.0-99.0); Mean Platelet Volume 9.7 fL (9.5-13.5); Monocytes Absolute Auto 0.2 10^3/uL (0.3-0.8); Monocytes Percent Auto 2.5 % (1.7-12.0); Neutrophils Absolute Auto 8.2 10^3/uL (1.4-6.5); Neutrophils Percent Auto 93.4 % (43.0-75.0); Platelet Count 265 10^3/uL (150-450); Red Cell Distribution Width 14.5 % (11.0-15.0); White Blood Count 8.8 10^3/uL (4.0-11.0)
[2023-06-24 21:57] LABS: Urine Microscopic Indicated YES
[2023-06-24 22:10] LABS: Bacteria Urine LARGE #/HPF (NONE SEEN); Cast Seen? NONE SEEN #/LPF (NONE SEEN); Crystals Seen? None Seen #/HPF (None Seen); Mucus Urine NONE SEEN (NONE SEEN); RBC Urine 0-2 #/HPF (0-2); Squamous Epithelial Cell Urine NONE SEEN #/LPF (NONE/RARE); Urine Culture Indicated YES
[2023-06-24 22:10] LABS: Alanine Aminotransferase 24 U/L (14-59); Albumin Level 3.9 g/dL (3.4-5.0); Alkaline Phosphatase 96 U/L (46-116); Anion Gap 15.6; Aspartate Amino Transferase 18 U/L (15-37); BUN Creatinine Ratio 24.5; Bilirubin Total 0.7 mg/dL (0.2-1.0); Calcium 9.3 mg/dL (8.5-10.1); Carbon Dioxide 24.2 mmol/L (21.0-32.0); Chloride 104 mmol/L (98-107); Estimated GFR (African America >60 (>=60); Estimated GFR (Non-African Ame >60 (>=60); Globulin 3.8 g/dL; Glucose 208 mg/dL (74-106); Potassium 3.8 mmol/L (3.5-5.1); Sodium 140 mmol/L (136-145); Total Protein 7.7 g/dL (6.4-8.2)
[2023-06-24 22:13] LABS: Troponin I High Sensitivity 9.9 pg/mL (4.0-51.3)
[2023-06-24] MEDS: HYDROMORPHONE HCL 0.5 MG/0.5 ML SYRINGE IV ×2 (22:36→23:58)
[2023-06-24] MEDS: PIPERACILLIN SODIUM/TAZOBACTAM 4.5 GM in 0.9 % SODIUM CHLORIDE 50 ML IV (23:57)
[2023-06-25] VITALS (20 sets, daily range): BP systolic 140–204; BP diastolic 66–114; PULSE 108–127; RESP 16; TEMP 37.2; O2SAT 95–97
[2023-06-25] MEDS: PROMETHAZINE HCL 25 MG/ML VIAL 12.5 MG IV (00:49)
[2023-06-25 02:17] LABS: Lactate/Lactic Acid 1.7 mmol/L (0.4-2.0)
[2023-06-25] MEDS: 0.9 % SODIUM CHLORIDE 1,000 ML 999 ML IV (02:42)
[2023-06-25] MEDS: HYDROMORPHONE HCL 0.5 MG/0.5 ML SYRINGE IV (03:13)
== END 2023-06-25 03:48 | disposition short-term general hospital (02) ==
PROVIDERS: Emergency Provider Student in an Organized Health Care Education/Training Program; PCP Family Medicine
DX: K56.609 Unspecified intestinal obstruction, unspecified as to partial versus complete obstruction (principal); R00.0 Tachycardia, unspecified; Z93.6 Other artificial openings of urinary tract status; Z85.51 Personal history of malignant neoplasm of bladder
CPT/HCPCS: 36415; 74177; 80053; 81001; 83605; 83690; 84484; 85025; 87086; 87150; 87186; 93005; 96361; 96365; 96372; 96375; 96376; 99285; J0500; J1170; Q9967

== ENCOUNTER 2023-08-08 14:28 | Outpatient (OUT) | payer MEDICARE, SELFPAY ==
--- NOTE | 2023-08-08 14:33 | CT_ITS ---
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 MRI brain 05/10/2022. TECHNIQUE: Axial CT images of the brain were obtained without contrast. Coronal and sagittal reformats were obtained. Dose reduction techniques were achieved by using automated exposure control and/or adjustment of mA and/or kV according to patient size and/or use of iterative reconstruction technique. FINDINGS: Since 05/27/2022, the lateral and third ventricles have mildly decreased in size. These remain mildly out of proportion to the degree of volume loss. No intracranial hemorrhage, extra-axial fluid collection, midline shift, or acute large vessel territory infarction. No other mass effect. Patchy periventricular and subcortical hypoattenuation is likely on the basis of chronic microvascular angiopathic changes. Mild symmetric global volume loss without lobar predominance. Anterior right frontal encephalomalacia/gliosis. Stable right centrum semiovale hypodensity. No calvarial fracture. Normal soft tissues. Subtotal opacification of the right sphenoid sinus. Remainder of the paranasal sinuses and the mastoid air cells are well-aerated. CT/CT head/brain wo con IMPRESSION: 1. Since 05/27/2022, the lateral and third ventricles have mildly decreased in size. These remain mildly out of proportion to the degree of volume loss. 2. No acute intracranial abnormality. Electronically authenticated by: MADELEINE GUEVARA Date: 08/08/2023 15:29
== END 2023-08-08 14:29 | disposition home or self-care (01) ==
LOC: CT 14:29
PROVIDERS: PCP Internal Medicine
DX: B49 Unspecified mycosis (principal); G91.4 Hydrocephalus in diseases classified elsewhere
CPT/HCPCS: 70450

== ENCOUNTER 2023-08-23 10:36 | Outpatient (OUT) | payer MEDICARE, SELFPAY ==
[2023-08-23 11:38] LABS: Anion Gap 12.2; BUN Creatinine Ratio 30.8; Calcium 9.3 mg/dL (8.5-10.1); Carbon Dioxide 27.6 mmol/L (21.0-32.0); Chloride 109 mmol/L (98-107); Estimated GFR (African America >60 (>=60); Estimated GFR (Non-African Ame >60 (>=60); Glucose 69 mg/dL (74-106); Magnesium 1.9 mg/dL (1.8-2.4); Potassium 3.8 mmol/L (3.5-5.1); Sodium 145 mmol/L (136-145)
== END 2023-08-23 10:37 | disposition home or self-care (01) ==
LOC: LAB 10:36
PROVIDERS: PCP Internal Medicine; Visit Provider Internal Medicine
DX: E83.42 Hypomagnesemia (principal); I10 Essential (primary) hypertension
CPT/HCPCS: 36415; 80048; 83735

== ENCOUNTER 2024-03-05 14:51 | Emergency (ER) | payer MEDICARE, SELFPAY ==
[2024-03-05 14:58] VITALS: BP 175/69; PULSE 84; TEMP 36.7; O2SAT 100; BMI 23.4
--- NOTE | 2024-03-05 15:58 | XR_ITS ---
The [address] [address] Patient Name: CHIKIS TOBAR MRN: [id number] date: 1965 Sex: F Assigned Patient Location: ER Current Patient Location: ER Accession/Order Number: [id number] Exam Date: 03/05/2024 16:10 Report Date: 03/05/2024 17:15 At the request of: UZMA MUNGUIA Procedure: XR chest 1V EXAM: XR chest 1V HISTORY: leg swelling COMPARISON: 05/27/2022 TECHNIQUE: Chest X-ray AP, 1 view FINDINGS: Support devices: Right jugular approach central venous catheter overlying superior vena cava. Lungs/pleura: No consolidation, effusion, or pneumothorax. Heart and mediastinum: Normal contours. Bones: No acute abnormality identified. XR/XR chest 1V Impression: No radiographic evidence of acute cardiopulmonary process. Electronically authenticated by: LEANNA HERNANDEZ Date: 03/05/2024 17:15
[2024-03-05] MEDS: FUROSEMIDE 40 MG/4 ML VIAL IVP (16:08)
[2024-03-05 16:16] LABS: Basophils Percent Auto 0.3 % (0.2-2.0); Eosinophils Absolute Auto 0.1 10^3/uL (0.0-0.7); Eosinophils Percent Auto 1.7 % (0.9-7.0); Hematocrit 34.2 % (36.0-48.0); Hemoglobin 11.1 g/dL (12.0-16.0); Immature Granulocytes Abs Auto 0.01 10^3/uL (0.00-0.03); Immature Granulocytes Pct Auto 0.2 % (0.0-0.5); Lymphocytes Percent Auto 16.6 % (20.5-60.0); Mean Corpuscular HGB Conc 32.5 g/dL (29.9-35.2); Mean Corpuscular Hemoglobin 30.4 pg (26.7-34.0); Mean Corpuscular Volume 93.7 fL (81.0-99.0); Mean Platelet Volume 9.4 fL (9.5-13.5); Monocytes Absolute Auto 0.6 10^3/uL (0.3-0.8); Monocytes Percent Auto 10.6 % (1.7-12.0); Neutrophils Absolute Auto 4.1 10^3/uL (1.4-6.5); Neutrophils Percent Auto 70.6 % (43.0-75.0); Platelet Count 294 10^3/uL (150-450); Red Blood Count 3.65 10^6/uL (4.20-5.40); Red Cell Distribution Width 14.5 % (11.0-15.0); White Blood Count 5.9 10^3/uL (4.0-11.0)
[2024-03-05 16:32] LABS: Anion Gap 11.3
[2024-03-05 16:37] LABS: Alanine Aminotransferase 25 U/L (14-59); Albumin Level 3.1 g/dL (3.4-5.0); Alkaline Phosphatase 111 U/L (46-116); Aspartate Amino Transferase 22 U/L (15-37); Bilirubin Total 0.3 mg/dL (0.2-1.0); Calcium 8.9 mg/dL (8.5-10.1); Carbon Dioxide 32.5 mmol/L (21.0-32.0); Chloride 107 mmol/L (98-107); Estimated GFR (African America >60 (>=60 mL/min/1.73m^2); Estimated GFR (Non-African Ame >60 (>=60 mL/min/1.73m^2); Globulin 3.2 g/dL; Glucose 76 mg/dL (74-106); Potassium 3.8 mmol/L (3.5-5.1); Sodium 147 mmol/L (136-145); Total Protein 6.3 g/dL (6.4-8.2)
[2024-03-05 17:21] VITALS: BP 146/88; PULSE 82; O2SAT 98
[2024-03-05 17:44] VITALS: BP 142/66; PULSE 85; TEMP 36.8; O2SAT 96
--- NOTE | 2024-03-05 18:08 | ED.GENADUL1 ---
HPI HPI - General Adult General Chief complaint: Extremity Problem, Nontraumatic Stated complaint: EDEMA Time Seen by Provider: 03/05/24 15:17 Source: patient and friend Mode of arrival: Wheelchair Limitations: no limitations History of Present Illness HPI narrative: Patient presents to ED complaining of lower extremity edema. She has a history of multiple medical issues including a [employer] shunt from hydrocephalus. She reports that she was recently discharged from a rehab facility and has had continued and worsening lower extremity edema. No shortness of breath no chest pain no hypoxia. She is on Lasix and her primary doctor told her to increase to 20 twice a day instead of 20 once a day. Patient states her doctor to hold her to come into the ER for further evaluation and possible admission if there was an acute reason for admission. Vital signs stable. No abdominal pain nausea vomiting. No fevers. Patient denies any chest pain. She is also dealing with a wound on her foot that is being addressed by wound care. She said it has been difficult to ambulate is much as she would like to. She sits in the chair a lot and then continues to accumulate fluid in her legs. She is alert and in no acute. Related Data Home Medications ?Medication ?Instructions ?Recorded ?Confirmed baclofen 5 mg tablet 10 mg PO BID 03/05/24 03/05/24 furosemide 20 mg tablet 20 mg PO BID 03/05/24 03/05/24 insulin aspart U-100 100 unit/mL 03/05/24 subcutaneous solution insulin glargine 100 unit/mL (3 24 unit subcut DAILY 03/05/24 03/05/24 mL) subcutaneous pen (Lantus Solostar U-100 Insulin) lisinopril 20 mg tablet 40 mg PO DAILY 03/05/24 03/05/24 metoprolol succinate 100 mg 100 mg PO DAILY 03/05/24 03/05/24 tablet,extended release 24 hr oxycodone 5 mg tablet 5 mg PO Q6H PRN pain 03/05/24 03/05/24 potassium chloride 10 mEq 10 meq PO DAILY 03/05/24 03/05/24 tablet,extended release Previous Rx's ?Medication ?Instructions ?Recorded hydrocodone 5 mg-acetaminophen 325 1 tab PO Q6H PRN pain 3 days #12 04/11/23 mg tablet tabs ondansetron 4 mg disintegrating 4 mg PO Q6H PRN nausea and 04/11/23 tablet vomiting #12 tabs bacitracin 500 unit/gram topical 1 applic topical BID 7 days #14 06/24/23 ointment grams Allergies Allergy/AdvReac Type Severity Reaction Status Date / Time cyclobenzaprine (From Allergy Intermediate Hives Verified 04/11/23 18:22 Flexeril) meperidine (From Demerol) Allergy Intermediate Nausea Verified 04/11/23 18:22 midazolam (From Versed) Allergy Intermediate Verified 04/11/23 18:22 orphenadrine (From Norflex) Allergy Intermediate Hives Verified 04/11/23 18:22 Opioid HPI Opioid Management Most Recent Opioid Data: Last Pain Scale 5 04/11/23 19:40 04/11/23 Review of Systems ROS Status of ROS 10 or more systems reviewed and unremarkable except as noted in history and below [facility] Social History Little interest or pleasure in doing things: not at all Feeling down, depressed, or hopeless: not at all Exam Narrative Exam Narrative: Time Seen: [] Vital Signs: [Per nurse's notes.] General: [Alert] Skin: [Warm, dry, no rash.] Head: [Normocephalic, atraumatic.] Neck: [Supple, trachea midline.] Eye: [Pupils are equal, round and reactive to light, extraocular movements are intact, normal conjunctiva.] Ears, nose, mouth and throat: oral mucosa moist. Cardiovascular: [Regular rate and rhythm, no murmur.] Respiratory: [Lungs are clear to auscultation, respirations are non-labored, breath sounds are equal.] Chest wall: [No tenderness, no deformity.] Gastrointestinal: [Soft, nontender, non distended, normal bowel sounds.] MSK: 5 out of 5 muscle strength x 4 extremities no calf pain bilateral lower extremity edema, 2+ pitting edema. Wound on heel which is chronic. Lymphatics: [No lymphadenopathy.] Psychiatric: [Cooperative, appropriate mood & affect.] Neurological: [Alert and oriented to person, place, time, and situation, no focal neurological deficit observed.] Constitutional Vital Signs, click to edit/add: Last Vital Signs Temp 98.3 F 03/05/24 17:44 Pulse 85 03/05/24 17:44 Resp 14 03/05/24 17:44 BP 142/66 H 03/05/24 17:44 Pulse Ox 96 03/05/24 17:44 O2 Del Method Room Air 03/05/24 17:44 Course Vital Signs Vital signs: Vital Signs Temperature 98.0 F 03/05/24 14:58 Pulse Rate 84 03/05/24 14:58 Respiratory Rate 16 03/05/24 14:58 Blood Pressure 175/69 H 03/05/24 14:58 Pulse Oximetry 100 03/05/24 14:58 Oxygen Delivery Method Room Air 03/05/24 14:58 Temperature 98.3 F 03/05/24 17:44 Pulse Rate 85 03/05/24 17:44 Respiratory Rate 14 03/05/24 17:44 Blood Pressure 142/66 H 03/05/24 17:44 Pulse Oximetry 96 03/05/24 17:44 Oxygen Delivery Method Room Air 03/05/24 17:44 Medical Decision Making MDM Narrative Medical decision making narrative: Patient's labs are negative for acute. Chest x-ray does not show any fluid accumulation. BNP is normal. She was given an extra dose of Lasix IV, 40 mg. She was having increased urine output after that. I do not see any acute reason for admission to the hospital right now as the patient is not hypoxic short of breath or in congestive heart failure. I instructed patient to follow-up with family doctor, possibly lymphedema clinic and continue with wound care for her foot. Continue the 20 twice daily of Lasix as directed by her physician. Return to ED if worsening symptoms, shortness of breath chest pain or any further concerns. Patient is comfortable care plan for discharge home. Differential Diagnosis Differential Diagnosis: CHF, lymphedema, lower extremity edema, electrolyte abnormality Medical Records Medical records reviewed: Yes I reviewed the patient's medical records Lab Data Lab results reviewed: Yes I reviewed the patient's lab results Labs: Lab Results 03/05/24 Range/Units 16:05 WBC 5.9 (4.0-11.0) 10^3/uL RBC 3.65 L (4.20-5.40) 10^6/uL Hgb 11.1 L (12.0-16.0) g/dL Hct 34.2 L (36.0-48.0) % MCV 93.7 (81.0-99.0) fL MCH 30.4 (26.7-34.0) pg MCHC 32.5 (29.9-35.2) g/dL RDW 14.5 (11.0-15.0) % Plt Count 294 (150-450) 10^3/uL MPV 9.4 L (9.5-13.5) fL Neut % (Auto) 70.6 (43.0-75.0) % Lymph % (Auto) 16.6 L (20.5-60.0) % [place] % (Auto) 10.6 (1.7-12.0) % Eos % (Auto) 1.7 (0.9-7.0) % Baso % (Auto) 0.3 (0.2-2.0) % Neut # (Auto) 4.1 (1.4-6.5) 10^3/uL Lymph # (Auto) 1.0 L (1.2-3.8) 10^3/uL [place] # (Auto) 0.6 (0.3-0.8) 10^3/uL Eos # (Auto) 0.1 (0.0-0.7) 10^3/uL Baso # (Auto) 0.0 (0.0-0.1) 10^3/uL Abs Immat Gran (auto) 0.01 (0.00-0.03) 10^3/uL Imm/Tot Granulo (auto) 0.2 (0.0-0.5) % Sodium 147 H (136-145) mmol/L Potassium 3.8 (3.5-5.1) mmol/L Chloride 107 (98-107) mmol/L Carbon Dioxide 32.5 H (21.0-32.0) mmol/L Anion Gap 11.3 BUN 20.0 H (7.0-18.0) mg/dL Creatinine 0.74 (0.55-1.02) mg/dL Est GFR ( Amer) >60 (>=60 mL/min/1.73m^2) Est GFR (Non-Af Amer) >60 (>=60 mL/min/1.73m^2) BUN/Creatinine Ratio 27.0 Glucose 76 (74-106) mg/dL Calcium 8.9 (8.5-10.1) mg/dL Total Bilirubin 0.3 (0.2-1.0) mg/dL AST 22 (15-37) U/L ALT 25 (14-59) U/L Alkaline Phosphatase 111 (46-116) U/L NT-Pro-B Natriuret Pep 189.0 (<=900.0) pg/mL Total Protein 6.3 L (6.4-8.2) g/dL Albumin 3.1 L (3.4-5.0) g/dL Globulin 3.2 g/dL Albumin/Globulin Ratio 1.0 Imaging Data Chest x-ray: Radiologist's impression: ITS Impressions Chest X-Ray 03/05/24 15:58 Impression: No radiographic evidence of acute cardiopulmonary process. Electronically authenticated by: LEANNA HERNANDEZ Date: 03/05/2024 17:15 Discharge Plan Discharge Chief Complaint: Extremity Problem, Nontraumatic Clinical Impression: Edema Patient Disposition: Home, Self-Care Time of Disposition Decision: 17:21 Condition: Good Mode of Transportation: Private Vehicle Prescriptions / Home Meds: No Action bacitracin 500 unit/gram ointment 1 applic topical BID 7 Days Qty: 14 0RF hydrocodone-acetaminophen 5-325 mg tablet 1 tab PO Q6H PRN (Reason: pain) 3 Days Qty: 12 0RF Rx Instructions: DX: M25.562 ondansetron 4 mg tablet,disintegrating 4 mg PO Q6H PRN (Reason: nausea and vomiting) Qty: 12 0RF baclofen 5 mg tablet 10 mg PO BID furosemide 20 mg tablet 20 mg PO BID insulin aspart U-100 100 unit/mL solution insulin glargine [Lantus Solostar U-100 Insulin] 100 unit/mL (3 mL) insulin pen 24 unit SUBCUT DAILY Patient Comments: ONLY IF INSULIN PUMP FAILS lisinopril 20 mg tablet 40 mg PO DAILY oxycodone 5 mg tablet 5 mg PO Q6H PRN (Reason: pain) metoprolol succinate 100 mg tablet extended release 24 hr 100 mg PO DAILY potassium chloride 10 mEq tablet extended release 10 meq PO DAILY Print Language: Swazi Instructions: Edema (ED) Referrals: Ramon Poole DO [Primary Care Provider] - 1 week Discharge Date/Time: 03/05/24 17:46
== END 2024-03-05 17:46 | disposition home or self-care (01) ==
PROVIDERS: Emergency Provider Emergency Medicine; PCP Internal Medicine
DX: R60.0 Localized edema (principal); Z79.899 Other long term (current) drug therapy
CPT/HCPCS: 36415; 71045; 80053; 83880; 85025; 96374; 99285; J1940

== ENCOUNTER 2024-03-06 15:30 | Outpatient (OUT) | payer MEDICARE, SELFPAY | END 2024-03-06 15:31 | disposition home or self-care (01) | LOC: WC 15:30 | PROVIDERS: PCP Internal Medicine; Visit Provider Physician Assistant | DX: E11.621 Type 2 diabetes mellitus with foot ulcer (principal); L97.422 Non-pressure chronic ulcer of left heel and midfoot with fat layer exposed | CPT/HCPCS: G0463 ==

== ENCOUNTER 2024-03-12 09:04 | Outpatient (RCR) | payer MEDICARE, SELFPAY | END 2024-04-15 15:00 | disposition home or self-care (01) | LOC: PT 09:04 | PROVIDERS: PCP Internal Medicine; Visit Provider Internal Medicine | DX: R26.9 Unspecified abnormalities of gait and mobility (principal); M62.838 Other muscle spasm | CPT/HCPCS: 97110; 97112; 97140; 97163; 97530 ==

== ENCOUNTER 2024-03-14 13:02 | Outpatient (RCR) | payer MEDICARE, SELFPAY | END 2024-04-15 15:00 | disposition home or self-care (01) | LOC: OT 13:02 | PROVIDERS: PCP Internal Medicine; Visit Provider Internal Medicine | DX: R26.9 Unspecified abnormalities of gait and mobility (principal) | CPT/HCPCS: 97112; 97166; 97530; 97535 ==

== ENCOUNTER 2024-03-20 14:19 | Outpatient (OUT) | payer MEDICARE, SELFPAY ==
--- NOTE | 2024-03-20 14:22 | XR_ITS ---
The [address] [address] Patient Name: CHIKIS TOBAR MRN: [id number] date: 1965 Sex: F Assigned Patient Location: LAB Current Patient Location: Accession/Order Number: [id number] Exam Date: 03/20/2024 14:55 Report Date: 03/21/2024 06:12 At the request of: JULIETTE BERUMEN Procedure: XR foot LT min 3V PROCEDURE: XR foot LT min 3V HISTORY: Left Foot Pain M79.672 COMPARISON: None. FINDINGS: BONES:Medullary vanessa within distal tibia. Mild degenerative change of first metatarsophalangeal joint and joints of the midfoot. No fracture, dislocation, or bone lesion. Suspect flattening of the plantar arch. SOFT TISSUES:Prominent soft tissue swelling surrounding the foot and ankle. EFFUSION:None visible. OTHER: Negative. XR/XR foot LT min 3V IMPRESSION: 1. Soft tissue swelling of uncertain etiology. 2. Mild-moderate degenerative changes. Electronically authenticated by: BRANDON HOPE Date: 03/21/2024 06:12
== END 2024-03-20 14:20 | disposition home or self-care (01) ==
LOC: LAB 14:19
PROVIDERS: PCP Internal Medicine; Visit Provider Internal Medicine
DX: M79.672 Pain in left foot (principal); I87.2 Venous insufficiency (chronic) (peripheral); M25.475 Effusion, left foot
CPT/HCPCS: 73630

== ENCOUNTER 2024-03-25 14:45 | Outpatient (OUT) | payer MEDICARE, SELFPAY | END 2024-03-25 14:46 | disposition home or self-care (01) | LOC: WC 14:45 | PROVIDERS: PCP Internal Medicine; Visit Provider Physician Assistant | DX: L89.620 Pressure ulcer of left heel, unstageable (principal) | CPT/HCPCS: 11043; A6213 ==

== ENCOUNTER 2024-04-11 12:08 | Outpatient (OUT) | payer MEDICARE, SELFPAY | END 2024-04-11 12:09 | disposition home or self-care (01) | LOC: WC 12:08 | PROVIDERS: PCP Internal Medicine; Visit Provider Podiatrist Foot & Ankle Surgery | DX: L89.620 Pressure ulcer of left heel, unstageable (principal) | CPT/HCPCS: G0463 ==

== ENCOUNTER 2024-04-16 09:41 | Outpatient (RCR) | payer MEDICARE, SELFPAY | END 2024-05-16 14:32 | disposition home or self-care (01) | LOC: PT 09:41 | PROVIDERS: PCP Internal Medicine; Visit Provider Internal Medicine | DX: R26.9 Unspecified abnormalities of gait and mobility (principal); M62.838 Other muscle spasm; R29.3 Abnormal posture; M62.81 Muscle weakness (generalized); M79.605 Pain in left leg; M79.604 Pain in right leg; R26.89 Other abnormalities of gait and mobility | CPT/HCPCS: 97110; 97112; 97530 ==

== ENCOUNTER 2024-04-16 09:46 | Outpatient (RCR) | payer MEDICARE, SELFPAY | END 2024-05-16 14:32 | disposition home or self-care (01) | LOC: OT 09:46 | PROVIDERS: PCP Internal Medicine; Visit Provider Internal Medicine | DX: R26.9 Unspecified abnormalities of gait and mobility (principal) | CPT/HCPCS: 97110; 97530; 97535 ==

== ENCOUNTER 2024-04-30 16:16 | Outpatient (OUT) | payer MEDICARE, SELFPAY | END 2024-04-30 16:17 | disposition home or self-care (01) | LOC: WC 16:16 | PROVIDERS: PCP Internal Medicine; Visit Provider Physician Assistant | DX: L89.620 Pressure ulcer of left heel, unstageable (principal) | CPT/HCPCS: 11043; A6213 ==

== ENCOUNTER 2024-05-17 06:00 | Outpatient (RCR) | payer MEDICARE, SELFPAY | END 2024-08-21 07:25 | disposition home or self-care (01) | LOC: PT 06:00 | PROVIDERS: PCP Internal Medicine; Visit Provider Internal Medicine | DX: M62.838 Other muscle spasm (principal); R26.81 Unsteadiness on feet; R26.9 Unspecified abnormalities of gait and mobility; M79.605 Pain in left leg; M62.81 Muscle weakness (generalized); M79.604 Pain in right leg; R26.89 Other abnormalities of gait and mobility | CPT/HCPCS: 97110; 97112; 97530 ==

== ENCOUNTER 2024-05-17 06:00 | Outpatient (RCR) | payer MEDICARE, SELFPAY | END 2024-07-31 08:03 | disposition home or self-care (01) | LOC: OT 06:00 | PROVIDERS: PCP Internal Medicine; Visit Provider Internal Medicine | DX: R26.9 Unspecified abnormalities of gait and mobility (principal); R25.2 Cramp and spasm | CPT/HCPCS: 97110; 97530; 97535 ==

== ENCOUNTER 2024-06-20 14:43 | Outpatient (OUT) | payer MEDICARE, SELFPAY ==
[2024-06-20 15:38] LABS: Basophils Percent Auto 0.6 % (0.2-2.0); Eosinophils Absolute Auto 0.1 10^3/uL (0.0-0.7); Eosinophils Percent Auto 1.4 % (0.9-7.0); Hematocrit 37.6 % (36.0-48.0); Hemoglobin 12.2 g/dL (12.0-16.0); Immature Granulocytes Abs Auto 0.02 10^3/uL (0.00-0.03); Immature Granulocytes Pct Auto 0.3 % (0.0-0.5); Lymphocytes Absolute Auto 1.1 10^3/uL (1.2-3.8); Lymphocytes Percent Auto 16.8 % (20.5-60.0); Mean Corpuscular HGB Conc 32.4 g/dL (29.9-35.2); Mean Corpuscular Hemoglobin 29.6 pg (26.7-34.0); Mean Corpuscular Volume 91.3 fL (81.0-99.0); Mean Platelet Volume 9.2 fL (9.5-13.5); Monocytes Absolute Auto 0.5 10^3/uL (0.3-0.8); Monocytes Percent Auto 7.9 % (1.7-12.0); Neutrophils Absolute Auto 4.7 10^3/uL (1.4-6.5); Platelet Count 323 10^3/uL (150-450); Red Blood Count 4.12 10^6/uL (4.20-5.40); Red Cell Distribution Width 14.1 % (11.0-15.0); White Blood Count 6.4 10^3/uL (4.0-11.0)
[2024-06-20 16:06] LABS: Anion Gap 11.6; BUN Creatinine Ratio 42.7; Calcium 9.4 mg/dL (8.5-10.1); Chloride 107 mmol/L (98-107); Estimated GFR (African America >60 (>=60 mL/min/1.73m^2); Estimated GFR (Non-African Ame >60 (>=60 mL/min/1.73m^2); Glucose 89 mg/dL (74-106); Potassium 3.6 mmol/L (3.5-5.1); Sodium 143 mmol/L (136-145)
[2024-06-21 15:03] LABS: C. Difficile PCR NEGATIVE
== END 2024-06-20 14:44 | disposition home or self-care (01) ==
LOC: LAB 14:44
PROVIDERS: PCP Internal Medicine; Visit Provider Internal Medicine
DX: R19.7 Diarrhea, unspecified (principal); K62.5 Hemorrhage of anus and rectum; I10 Essential (primary) hypertension
CPT/HCPCS: 36415; 80048; 85025; 87045; 87046; 87427; 87493

== ENCOUNTER 2024-07-28 14:19 | Emergency (ER) | payer MEDICARE, SELFPAY ==
[2024-07-28 14:26] VITALS: BP 116/64; PULSE 80; TEMP 36.8; O2SAT 99; BMI 22.6
[2024-07-28 15:31] LABS: Basophils Percent Auto 0.4 % (0.2-2.0); Eosinophils Absolute Auto 0.1 10^3/uL (0.0-0.7); Eosinophils Percent Auto 1.6 % (0.9-7.0); Hematocrit 37.5 % (36.0-48.0); Hemoglobin 12.6 g/dL (12.0-16.0); Immature Granulocytes Abs Auto 0.06 10^3/uL (0.00-0.03); Immature Granulocytes Pct Auto 0.7 % (0.0-0.5); Lymphocytes Absolute Auto 1.1 10^3/uL (1.2-3.8); Mean Corpuscular HGB Conc 33.6 g/dL (29.9-35.2); Mean Corpuscular Hemoglobin 30.1 pg (26.7-34.0); Mean Corpuscular Volume 89.7 fL (81.0-99.0); Mean Platelet Volume 10.2 fL (9.5-13.5); Monocytes Absolute Auto 0.6 10^3/uL (0.3-0.8); Monocytes Percent Auto 7.3 % (1.7-12.0); Neutrophils Absolute Auto 6.6 10^3/uL (1.4-6.5); Platelet Count 317 10^3/uL (150-450); Red Blood Count 4.18 10^6/uL (4.20-5.40); Red Cell Distribution Width 15.1 % (11.0-15.0); White Blood Count 8.5 10^3/uL (4.0-11.0)
[2024-07-28] MEDS: ONDANSETRON PF 4 MG/2 ML VIAL IV (15:37)
[2024-07-28 15:49] LABS: Alanine Aminotransferase 21 U/L (14-59); Albumin Globulin Ratio 0.9; Albumin Level 3.4 g/dL (3.4-5.0); Alkaline Phosphatase 157 U/L (46-116); Anion Gap 13.5; Aspartate Amino Transferase 15 U/L (15-37); BUN Creatinine Ratio 54.6; Bilirubin Total 0.6 mg/dL (0.2-1.0); Calcium 9.3 mg/dL (8.5-10.1); Carbon Dioxide 22.4 mmol/L (21.0-32.0); Chloride 108 mmol/L (98-107); Estimated GFR (African America 56 (>=60 mL/min/1.73m^2); Estimated GFR (Non-African Ame 47 (>=60 mL/min/1.73m^2); Globulin 3.8 g/dL; Glucose 180 mg/dL (74-106); Potassium 3.9 mmol/L (3.5-5.1); Sodium 140 mmol/L (136-145); Total Protein 7.2 g/dL (6.4-8.2)
[2024-07-28 15:56] LABS: Bilirubin Urine NEGATIVE (NEGATIVE); Blood Urine NEGATIVE (NEGATIVE); Clarity Urine CLEAR (CLEAR); Color Urine LT. YELLOW (YELLOW); Glucose Urine UA NEGATIVE (NEGATIVE); Ketones Urine NEGATIVE (NEGATIVE); Leukocyte Esterase Urine SMALL (NEGATIVE); Nitrite Urine POSITIVE (NEGATIVE); Protein Urine NEGATIVE (NEG/TRACE); Urobilinogen Urine 0.2 EU/dL (0.2-1.0); pH Urine 8.5 (5.0-9.0)
[2024-07-28 15:58] LABS: Urine Microscopic Indicated YES
[2024-07-28 16:05] LABS: Bacteria Urine LARGE #/HPF (NONE SEEN); Crystals Seen? Seen #/HPF (None Seen); Mucus Urine NONE SEEN (NONE SEEN); RBC Urine 0-2 #/HPF (0-2); Triple Phosphate Crystal Urine RARE
[2024-07-28 16:06] LABS: Cast Seen? NONE SEEN #/LPF (NONE SEEN); Urine Culture Indicated YES-FRMC
[2024-07-28 16:07] LABS: Squamous Epithelial Cell Urine NONE SEEN #/LPF (NONE/RARE)
[2024-07-28] MEDS: 0.9 % SODIUM CHLORIDE 1,000 ML 1000 ML IV (16:11)
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
[2024-07-28] MEDS: LACTATED RINGER'S SOLUTION 1,000 ML 1000 ML IV (18:04)
[2024-07-28] MEDS: ONDANSETRON 4 MG RAPDIS TABLET SL (19:41)
== END 2024-07-28 19:45 | disposition home or self-care (01) ==
PROVIDERS: Emergency Provider Emergency Medicine; PCP Internal Medicine
DX: E86.9 Volume depletion, unspecified (principal); R11.2 Nausea with vomiting, unspecified; R19.7 Diarrhea, unspecified; Z79.899 Other long term (current) drug therapy; Z98.2 Presence of cerebrospinal fluid drainage device; Z85.51 Personal history of malignant neoplasm of bladder; Z93.2 Ileostomy status; Z79.4 Long term (current) use of insulin; Z96.41 Presence of insulin pump (external) (internal); I10 Essential (primary) hypertension; E11.621 Type 2 diabetes mellitus with foot ulcer; L97.429 Non-pressure chronic ulcer of left heel and midfoot with unspecified severity
CPT/HCPCS: 36415; 70450; 80053; 81001; 83690; 85025; 87086; 87088; 87186; 96361; 96374; 99285; J2405; Q0162

== ENCOUNTER 2024-08-04 15:42 | Outpatient (RCR) | payer MEDICARE, SELFPAY | END 2024-08-21 07:26 | disposition home or self-care (01) | LOC: OT 15:42 | PROVIDERS: PCP Internal Medicine; Visit Provider Internal Medicine | DX: I89.0 Lymphedema, not elsewhere classified (principal) | CPT/HCPCS: 97140; 97166 ==

== ENCOUNTER 2024-08-07 22:24 | Emergency (ER) | payer MEDICARE, SELFPAY ==
[2024-08-07 22:27] VITALS: BP 168/71; PULSE 107; TEMP 36.8; O2SAT 98; BMI 23.9
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
[2024-08-07 23:01] LABS: Glucometer 413 mg/dL (74-106)
[2024-08-07 23:10] LABS: Basophils Percent Auto 0.4 % (0.2-2.0); Eosinophils Percent Auto 0.4 % (0.9-7.0); Hematocrit 35.9 % (36.0-48.0); Hemoglobin 11.8 g/dL (12.0-16.0); Immature Granulocytes Abs Auto 0.04 10^3/uL (0.00-0.03); Immature Granulocytes Pct Auto 0.5 % (0.0-0.5); Lymphocytes Absolute Auto 0.9 10^3/uL (1.2-3.8); Lymphocytes Percent Auto 10.6 % (20.5-60.0); Mean Corpuscular HGB Conc 32.9 g/dL (29.9-35.2); Mean Corpuscular Hemoglobin 29.9 pg (26.7-34.0); Mean Corpuscular Volume 90.9 fL (81.0-99.0); Mean Platelet Volume 9.9 fL (9.5-13.5); Monocytes Absolute Auto 0.5 10^3/uL (0.3-0.8); Monocytes Percent Auto 5.9 % (1.7-12.0); Neutrophils Absolute Auto 6.7 10^3/uL (1.4-6.5); Neutrophils Percent Auto 82.2 % (43.0-75.0); Platelet Count 310 10^3/uL (150-450); Red Blood Count 3.95 10^6/uL (4.20-5.40); Red Cell Distribution Width 14.6 % (11.0-15.0); White Blood Count 8.1 10^3/uL (4.0-11.0)
[2024-08-07 23:21] LABS: Anion Gap 12.3; BUN Creatinine Ratio 34.6; Calcium 8.8 mg/dL (8.5-10.1); Carbon Dioxide 26.7 mmol/L (21.0-32.0); Chloride 104 mmol/L (98-107); Estimated GFR (African America >60 (>=60 mL/min/1.73m^2); Estimated GFR (Non-African Ame 54 (>=60 mL/min/1.73m^2); Glucose 444 mg/dL (74-106); Sodium 138 mmol/L (136-145)
[2024-08-07] MEDS: INSULIN ASPART 300 UNIT/3 ML PEN 10 UNIT SUBQ (23:45)
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
[2024-08-08 02:05] LABS: Glucometer 304 mg/dL (74-106)
[2024-08-08 02:23] VITALS: BP 124/67; PULSE 74; O2SAT 98
[2024-08-08] MEDS: BACLOFEN 10 MG TABLET 20 MG PO (03:13)
[2024-08-08 07:18] VITALS: BP 152/70; PULSE 104; O2SAT 99
[2024-08-08 07:21] LABS: Glucometer 477 mg/dL (74-106)
[2024-08-08] MEDS: INSULIN ASPART 300 UNIT/3 ML PEN SUBQ ×2 (07:30→11:33)
[2024-08-08 09:25] LABS: Glucometer 325 mg/dL (74-106)
[2024-08-08 11:01] LABS: Glucometer 293 mg/dL (74-106)
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
[2024-08-08] MEDS: METOPROLOL SUCCINATE 50 MG TAB.ER.24H 100 MG PO (11:23)
[2024-08-08] MEDS: POTASSIUM CHLORIDE 10 MEQ ER TABLET PO (11:23)
[2024-08-08] MEDS: BACLOFEN 10 MG TABLET PO (11:24)
[2024-08-08] MEDS: LISINOPRIL 10 MG TABLET 40 MG PO (11:35)
[2024-08-08] MEDS: BUMETANIDE 1 MG TABLET PO (11:35)
--- NOTE | 2024-08-08 11:45 | SWNOTE1 ---
SW to update pt. Pt will be discharged from ED and will be going to outpt PT and then to a hotel or friends home.
--- NOTE | 2024-08-08 12:06 | PC.NURSE ---
pt given lunch tray and medicated per physician order for daily home medications
--- NOTE | 2024-08-08 13:58 | SWNOTE1 ---
MARY went back in to speak with pt after speaking with Dr. Poole's office. MARY advised that Dr. Poole will send over order to pharmacy to refill meds. Pt's concern is that the one medication was $5,000. SW and pt called the infectious disease doctor from [facility] to see if they can prescribe again. MARY spoke to salon receptionist and explained the situation. She voiced she will reach out to the physician and see if he can assist. MARY requested the office call pt back directly and let her know if the physician can help. Pt has also emailed the physician as well.
== END 2024-08-08 12:56 | disposition home or self-care (01) ==
PROVIDERS: Emergency Provider Internal Medicine; PCP Internal Medicine
DX: E10.65 Type 1 diabetes mellitus with hyperglycemia (principal); Z79.4 Long term (current) use of insulin; Z96.41 Presence of insulin pump (external) (internal); Z93.6 Other artificial openings of urinary tract status
CPT/HCPCS: 36415; 80048; 82948; 85025; 99284

== ENCOUNTER 2024-08-21 23:31 | Observation (INO) | payer MEDICARE, SELFPAY ==
[2024-08-21 23:43] VITALS: BP 130/48; PULSE 83; TEMP 36.6; O2SAT 98; BMI 23.9
[2024-08-22] VITALS (64 sets, daily range): BP systolic 90–129; BP diastolic 34–74; PULSE 77–107; TEMP 36.6–36.9; O2SAT 89–100; BMI 29.5
[2024-08-22] MEDS: ONDANSETRON 4 MG RAPDIS TABLET SL (00:02)
[2024-08-22] MEDS: HYDROCODONE/ACET 5-325 MG TABLET 1 TAB PO (00:02)
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
[2024-08-22] MEDS: BACLOFEN 10 MG TABLET PO ×3 (00:37→14:38)
--- NOTE | 2024-08-22 01:19 | ECG_ITS ---
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 Measurements Intervals [place] Rate: 85 P: 85 IA: 168 QRS: 36 QRSD: 76 T: 40 QT: 376 QTc: 418 Interpretive Statements 1100 Sinus rhythm 8102 Low QRS voltage in chest leads 9120 atypical ECG Compared to ECG 06/24/2023 21:41:55 Low QRS voltage now present Electronically Signed On 08-22-2024 18:42:16 EDT by LUPE CLARK M.D.
[2024-08-22] MEDS: MORPHINE SULFATE 4 MG/ML VIAL IV (01:39)
[2024-08-22 01:55] LABS: Basophils Absolute Auto 0.1 10^3/uL (0.0-0.1); Basophils Percent Auto 0.6 % (0.2-2.0); Eosinophils Absolute Auto 0.1 10^3/uL (0.0-0.7); Eosinophils Percent Auto 1.2 % (0.9-7.0); Hematocrit 35.2 % (36.0-48.0); Hemoglobin 11.6 g/dL (12.0-16.0); Immature Granulocytes Abs Auto 0.08 10^3/uL (0.00-0.03); Immature Granulocytes Pct Auto 0.9 % (0.0-0.5); Lymphocytes Absolute Auto 1.1 10^3/uL (1.2-3.8); Lymphocytes Percent Auto 12.7 % (20.5-60.0); Mean Corpuscular Hemoglobin 30.1 pg (26.7-34.0); Mean Corpuscular Volume 91.2 fL (81.0-99.0); Mean Platelet Volume 9.9 fL (9.5-13.5); Monocytes Absolute Auto 0.6 10^3/uL (0.3-0.8); Monocytes Percent Auto 7.5 % (1.7-12.0); Neutrophils Absolute Auto 6.6 10^3/uL (1.4-6.5); Neutrophils Percent Auto 77.1 % (43.0-75.0); Platelet Count 363 10^3/uL (150-450); Red Blood Count 3.86 10^6/uL (4.20-5.40); Red Cell Distribution Width 15.1 % (11.0-15.0); White Blood Count 8.6 10^3/uL (4.0-11.0)
[2024-08-22 02:06] LABS: Alanine Aminotransferase 23 U/L (14-59); Albumin Level 3.4 g/dL (3.4-5.0); Alkaline Phosphatase 134 U/L (46-116); Aspartate Amino Transferase 14 U/L (15-37); BUN Creatinine Ratio 86.8; Bilirubin Total 0.2 mg/dL (0.2-1.0); Calcium 9.2 mg/dL (8.5-10.1); Carbon Dioxide 18.2 mmol/L (21.0-32.0); Chloride 107 mmol/L (98-107); Estimated GFR (African America 55 (>=60 mL/min/1.73m^2); Estimated GFR (Non-African Ame 46 (>=60 mL/min/1.73m^2); Globulin 3.5 g/dL; Glucose 157 mg/dL (74-106); Potassium 5.2 mmol/L (3.5-5.1); Sodium 135 mmol/L (136-145); Total Protein 6.9 g/dL (6.4-8.2)
[2024-08-22] MEDS: 0.9 % SODIUM CHLORIDE 500 ML IV (02:30)
--- NOTE | 2024-08-22 02:46 | PC.NURSE ---
this patient awake and alert sitting upright on the bed, this patient rate her pain at 6/10 down from 10/10. this patient is aware of pending transfer to [facility], waiting on the dr to call us back this patient voices no concerns and shows no signs of distress
[2024-08-22] MEDS: ONDANSETRON PF 4 MG/2 ML VIAL IV ×3 (03:24→14:38)
[2024-08-22] MEDS: 0.9 % SODIUM CHLORIDE 1,000 ML 125 ML IV (03:34)
[2024-08-22] MEDS: HYDROMORPHONE HCL 1 MG/ML CARTRIDGE IV (05:45)
[2024-08-22] MEDS: HYDROMORPHONE HCL 1 MG/ML CARTRIDGE IVP (07:28)
--- NOTE | 2024-08-22 09:25 | CM.NOTE ---
Rounds made with Dr. Cox. Dr. Cox reviews plan of care and plan to transfer once bed available. Ms. Borges in agreement.
[2024-08-22] MEDS: ACETAMINOPHEN 325 MG TABLET 650 MG PO ×2 (10:16→17:12)
[2024-08-22] MEDS: POTASSIUM CHLORIDE 10 MEQ ER TABLET PO (10:16)
[2024-08-22] MEDS: OXYCODONE HCL 5 MG TABLET PO ×2 (10:16→17:12)
[2024-08-22] MEDS: DEXTROSE 5 %-0.45 % SOD CHLORD 1,000 ML 100 ML IV ×2 (10:16→19:42)
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
--- NOTE | 2024-08-22 16:18 | SWNOTE1 ---
Medicare Outpatient Observation Notice reviewed and discussed with patient. Pt. verbalized understanding and signed the form. Original given to patient and copy placed in patient?s chart. Plan is for pt to transfer to higher level of care.
[2024-08-22] MEDS: MORPHINE SULFATE 2 MG/ML SYRINGE IV (20:41)
== END 2024-08-22 21:02 | disposition short-term general hospital (02) ==
LOC: ER 08-22 07:45 → MS 08-22 08:08
PROVIDERS: Admitting Provider Internal Medicine; Emergency Provider Emergency Medicine; PCP Internal Medicine; Visit Provider Internal Medicine
DX: S72.402A Unspecified fracture of lower end of left femur, initial encounter for closed fracture (principal); I10 Essential (primary) hypertension; Z79.899 Other long term (current) drug therapy; Z90.710 Acquired absence of both cervix and uterus; Z98.2 Presence of cerebrospinal fluid drainage device; E10.9 Type 1 diabetes mellitus without complications; Z79.4 Long term (current) use of insulin; Z99.3 Dependence on wheelchair; W05.0XXA Fall from non-moving wheelchair, initial encounter; C67.9 Malignant neoplasm of bladder, unspecified; Z93.6 Other artificial openings of urinary tract status; N17.9 Acute kidney failure, unspecified
CPT/HCPCS: 36415; 73552; 73564; 80053; 85025; 93005; 94761; 96374; 96375; 96376; 99285; G0378; J1171; J2270; J2405; Q0162

== ENCOUNTER 2024-12-16 12:52 | Outpatient (RCR) | payer MEDICARE, SELFPAY | END 2025-03-03 13:45 | disposition home or self-care (01) | LOC: OT 12:52 | PROVIDERS: PCP Internal Medicine; Visit Provider Internal Medicine | DX: I89.0 Lymphedema, not elsewhere classified (principal); L89.629 Pressure ulcer of left heel, unspecified stage | CPT/HCPCS: 97140; 97167 ==

== ENCOUNTER 2024-12-18 12:21 | Outpatient (RCR) | payer MEDICARE, SELFPAY | END 2025-02-26 09:22 | disposition home or self-care (01) | LOC: PT 12:21 | PROVIDERS: PCP Internal Medicine; Visit Provider Internal Medicine | DX: M62.81 Muscle weakness (generalized) (principal); R26.89 Other abnormalities of gait and mobility | CPT/HCPCS: 97110; 97112; 97140; 97163; 97530 ==

== ENCOUNTER 2025-02-23 16:05 | Emergency (ER) | payer MEDICARE, SELFPAY ==
[2025-02-23 16:09] VITALS: BP 177/57; PULSE 89; TEMP 36.4; BMI 38.0
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
--- OUTSIDE RECORDS SUMMARY | 2025-02-23 16:39 | XMS_ITS | Clinical Summary ---
Author Organization [facility] Address [address], [address] [place] [address] Care Team Providers Care Information Technology Administrator Name Role Phone Oliva Simons MD Primary Care Provider [phone] Allergies Active AllergyReactionsCriticalityNoted DateCommentsCyclobenzaprineHives 07/21/20226568DcrdavvsubRgdkffemvcivyw36/07/9409MxmnrvxgoMjujo84/07/2023Orphenadrine Hives09/27/2022 Medications MedicationSigDispense QuantityRefillsLast FilledStart DateEnd DateStatus acetaminophen (TYLENOL) 325 MG tablet Take 2 tablets by mouth every 6 hours as needed for Pain or Fever06/15/2022 Active metoprolol tartrate (LOPRESSOR) 50 MG tablet Take 1 tablet by mouth 2 times daily 60 tablet ctive Additional Information Patient taking differently:50 mg Oral 2 TIMES DAILY, Hold for Systolic BP < or = to 100Hold for HR < or = to 50, Reported on 08/28/2024 insulin aspart (NOVOLOG) 100 UNIT/ML injection vial Use via insulin pump Max daily dose 100 units, DX: E10.65 20 mL ctive Continuous Blood Gluc Sensor (DEXCOM G7 SENSOR) MISC 1 Device by Does not apply route every 10 days 12 each ctive Continuous Glucose Transmitter (DEXCOM G6 TRANSMITTER) MISC Change every 3 months 1 each ctive Continuous Glucose Sensor (DEXCOM G6 SENSOR) MISC Change every 10 days 9 each ctive POSACONAZOLE PO Take 300 mg by mouth dailyActive polyethylene glycol (GLYCOLAX) 17 g packet Take 1 packet by mouth daily as needed for ConstipationActive bumetanide (BUMEX) 1 MG tablet Take 1 tablet by mouth with breakfast and with evening mealActive aspirin 81 MG chewable tablet Take 1 tablet by mouth daily 30 tablet tive lactobacillus (CULTURELLE) capsule Take 1 capsule by mouth 3 times daily 90 capsule 09/17/2024tive potassium chloride (KLOR-CON) 10 MEQ extended release tablet Take 1 tablet by mouth Daily with lunch 60 tablet tive Vitamin D (CHOLECALCIFEROL) 50 MCG (1999) TABS tablet Take 1 tablet by mouth Daily with supper 60 tablet tive Active Problems ProblemNoted DateDiagnosed DateGastroesophageal reflux disease with esophagitis 09/09/2024Poor control type I diabetes pnashotg27/16/2025hronic meningitis 08/29/2024History of etooygnkfqiqg45/16/2025History of recent fall08/29/2024 Absence of both cervix and uterus, eyeuqhmi17/08/2025Dependence on wheelchair 08/21/2024Pain in right leg05/17/2024Unsteadiness on feet05/17/2024Pain of left lower /01/2025Pressure injury of sacral region, stage Small bowel yqdakgdttwa57/11/2024Fungal efnxnoivp28/10/2023Fungal meningitis 07/24/2022Impaired mobility and activities of daily living dt NTSCI07/23/2022 Dopkjokweixxzf93/09/2023Severe protein-calorie morhxvoazoae09/08/2023Spinal cord mass06/15/2022Lesion of lumbar spine06/10/2022cute and chronic respiratory failure, unspecified whether with hypoxia or hduelgzahcv16/11/2023olostomy in place05/23/2022Iron deficiency gskdym7905/23/20223798Fmxcjy54/07/2023ognitive communication krjfrew7905/12/2022Hydrocephalus, cwnlwtbityo75/27/2023Insomnia, epeblftqqob46/25/2023iabetic ketoacidosis without coma05/10/2022obalamin gufcjhzvli35/04/2023Vitamin D yvaqtknxim72/04/5588Simvueagpedoqy30/26/2022 Swagnxmggdvneh23/22/9059Kanbeimqjikl14/22/4161Omqyxxfdcle59/07/2022 Kicsoscjdbwrrnpb98/07/2022nxiety disorder, kbhxtbagfiz83/25/2022Low back pain, zjjkxtzfqla27/25/2022besity, racvqxnvjko04/25/2022Malignant neoplasm of bladder, xtadlpypcqd32/24/2022Essential (primary) qomwxqfjoxkv56/23/2022sthma 02/16/2021 Overview (07/23/2022): Last Assessment & Plan: On albuterol nebulizer. Patient has had increase in asthma symptoms of cough and SOB since she found out she needed surgery3 weeks ago. She has been using albuterol twice per day. Denies productive cough. Lungs CTA bilaterally on exam, SpO2 99% on room air. Insulin pump in place02/01/2021Type 1 diabetes mellitus with hyperglycemia 06/01/2016 Resolved Problems ProblemNoted DateDiagnosed DateResolved DatePoor control type I diabetes tqgkigvw74 Family History Medical HistoryRelationNameCommentsStrokeFatherHigh Blood PressureMotherOther MotherRelationNameStatusCommentsFatherMother Social History Tobacco UseTypesPacks/DayYears UsedDateSmoking Tobacco: NeverSmokeless Tobacco: Never Tobacco Cessation:Counseling Given: Yes Alcohol UseStandard Drinks/WeekCommentsNever0 (1 standard drink = 0.6 oz pure alcohol)[facility] UtilitiesAnswerDate RecordedIn the past 12 months has the [employer], oil, or water [employer] threatened to shut off services in your home?No 08/29/2024UDIT-CAnswerDate RecordedQ1: How often do you have a drink containing alcohol?Never07/21/2022Q2: How many drinks containing alcohol do you have on a typical day when you are drinking?Patient does not drink07/21/2022Q3: How often do you have six or more drinks on one occasion?Never07/21/2022Hunger Vital Sign AnswerDate RecordedWithin the past 12 months, you worried that your food would run out before you got the money to buymore.Never true08/29/2024Within the past 12 months, the food you bought just didn't last and you didn't have money to get more.Never true08/29/2024PRAPARE - TransportationAnswerDate RecordedIn the past 12 months, has lack of transportation kept you from medical appointments or from getting medications?No08/29/2024In the past 12 months, has lack of transportation kept you from meetings, work, or from getting things needed for daily living?No08/29/2024Housing Stability Vital SignAnswerDate RecordedIn the last 12 months, was there a time when you were not able to pay the mortgage or rent on time?No08/29/2024In the past 12 months, how many times have you moved where you were living?t any time in the past 12 months, were you homeless or living in a fdc (including now)?Yes08/29/2024Food Insecurity AnswerDate RecordedWithin the past 12 months, you worried that your food would run out before you got the money to buymore.Within the past 12 months, the food you bought just didn't last and you didn't have money to get more.Interpersonal Safety Domain Source: IP Abuse ScreeningAnswerDate RecordedPhysical pnsmrZeuduv58/15/2025Verbal hbkoqSsfenf45/15/2025Emotional pwqubLvlnoj86/15/2025Financial eowyyFqthej69/15/2025Sexual qzqkiJqrclx34/15/2025 EducationAnswerDate RecordedWhat is the highest level of school you have completed or the highest degree you have received?Associate degree: occupational, technical, or vocational byrfmed3509/09/2024CommentsUnknown Sex and Gender InformationValueDate RecordedSex Assigned at BirthNot on file Legal PwpMwdccb70/10/2013 11:24 AM ESTGender IdentityNot on fileSexual OrientationNot on fileOccupationIndustryJob Start DateJob End DateNot on fileNot on fileNot on fileNot on file Last Filed Vital Signs Vital SignReadingTime TakenCommentsBlood Ugfzvwar660/5306/08/2024 8:09 AM EDT Wrmtu3039 8:09 AM CTXUytovlzwbwy20.8 ??C (98.2 ??F)09/18/2024 8:09 AM EDTRespiratory Qsxl9555 8:09 AM EDTOxygen Untknyqsow48%09/18/2024 8:09 AM EDTInhaled Oxygen Concentration--Dxvveb82.2 kg (187 lb 14.4 oz)09/14/2024 6:15 AM XNUCoralq272.6 cm (5' 6 )08/28/2024 11:30 PM EDTBody Mass Index30.33 08/28/2024 11:30 PM EDT Plan of Treatment Health MaintenanceDue DateLast DoneCommentsDiabetic foot exam1976Lipids 1976Depression Gllzwx6505/30/1978HIV lnvdof4605/30/1981Diabetic Alb to Cr ratio (uACR) test1984Diabetic retinal exam1984Hepatitis C screen 1984DTaP/Tdap/Td vaccine (1 - Tdap)1985Hepatitis B vaccine (1 of 3 - 19+ 3-dose series)1985Breast cancer snrfoy6005/30/20061372Fgbxdytqyrc77/14/2012 Colorectal Cancer Tiyvwp9705/30/2011FIT/FOBT: Average risk2011Fecal-DNA (Cologuard): Average risk2011Sigmoidoscopy/CT gzzlcqouihxp79/14/2012 Shingles vaccine (1 of 2)2016Pneumococcal 50+ years Vaccine (2 of 2 - PCV) 302/, 02/19/2021, 09/28/2005nnual Wellness Visit (Medicare Advantage)04/16/2024Flu vaccine (#1)0/08/2022, 01/14/2022, 01/17/2021, Additional history existsCOVID-19 Vaccine ( season) 505/, 03/08/2021, 02/21/2021, Additional history ltfirbC8N test (Diabetic or Prediabetic)/, 08/29/2024, 07/21/2022, Additional history existsGFR test (Diabetes, CKD 3-4, OR last GFR 15-59) /08/2024, 09/15/2024, 09/11/2024, Additional history exists Pneumococcal 0-49 years PscfvyoLjxlhasywqpw75/28/2022, 02/19/2021, 09/28/2005 Hepatitis A vaccineAged OutNo longer eligible based on patient's age to complete this topicHib vaccineAged OutNo longer eligible based on patient's age to complete this topicMeningococcal (ACWY) vaccineAged OutNo longer eligible based on patient's age to complete this topicMeningococcal B vaccineAged OutNo longer eligible based on patient's age to complete this topicPolio vaccineAged OutNo longer eligible based on patient's age to complete this topic Procedures Procedure NamePriorityDate/TimeAssociated DiagnosisCommentsBASIC METABOLIC PANEL Dlurcnu2209/18/2024 4:56 AM EDT HEMOGLOBIN A0QEzsgbge88/16/2025 5:08 AM EDT from Last 3 Months or Most Recently Relevant to Health Maintenance Results * (ABNORMAL) Basic Metabolic Panel (09/18/2024 4:56 AM EDT)ComponentValueRef RangeTest MethodAnalysis TimePerformed AtPathologist HalucvadeJhyscs796136 - 144 mEq/L09/18/2024 5:29 AM [facility] LABPotassium4.73.4 - 4.9 mEq/L09/18/2024 5:29 AM [facility] WZXDasunivi32068 - 107 mEq/L09/18/2024 5:29 AM [facility] MYBDM04059 - 31 mEq/L09/18/2024 5:29 AM [facility] LABAnion Gap99 - 15 mEq/L09/18/2024 5:29 AM [facility] RYQSjhmuym187(H)70 - 99 mg/dL09/18/2024 5:29 AM [facility] CUMCGG05(H)6 - 20 mg/dL09/18/2024 5:29 AM [facility] LABCreatinine0.900.50 - 0.90 mg/dL09/18/2024 5:29 AM [facility] LABEst, Sue Filt Rate74.0>60009/18/2024 5:29 AM [facility] LABComment: Pediatric calculator link https://www.kidney.org/professionals/kdoqi/gfr_calculatorped Effective Jan 16, 2022 These results are not intended for use in patients <18 years of age. eGFR results are calculated without a race factor using the 2020 CKD-EPI equation. ??Careful clinical correlation is recommended, particularly when comparing to results calculated using previous equations. The CKD-EPI equation is less accurate in patients with extremes of muscle mass, extra-renal metabolism of creatinine, excessive creatinine ingestion, or following therapy that affects renal tubular secretion. Calcium8.58.5 - 9.9 mg/dL09/18/2024 5:29 AM [facility] LAB Specimen (Source)Anatomical Location / LateralityCollection Method / Volume Collection TimeReceived Time09/18/2024 4:56 AM EDT09/18/2024 5:18 AM EDT Narrative Authorizing ProviderResult TypeResult StatusMark Marie MDCHEMISTRY ORDERABLES Final ResultPerforming OrganizationAddressCity/State/ZIP CodePhone Number [facility] [address] [place] [id number], [facility] [phone] * (ABNORMAL) Hemoglobin A1c (08/29/2024 5:08 AM EDT)ComponentValueRef RangeTest MethodAnalysis TimePerformed AtPathologist SignatureHemoglobin A1C7.0(H)4.0 - 6.0 %08/29/2024 4:48 PM EDCLEVELAND CLINIC LABORATORIESEstimated Avg Jfemukx791ud/dL 08/29/2024 4:48 PM EDCLEVELAND CLINIC LABORATORIESComment: The ADA and AACC recommend providing the estimated average glucose result to permit better patient understanding of their HBA1c result. Performed at [facility], [address] [place] [id number] . Specimen (Source)Anatomical Location / LateralityCollection Method / Volume Collection TimeReceived TimeBloodBLOOD SPECIMEN / Zhbhxat2708/29/2024 5:08 AM EDT 08/29/2024 5:27 AM EDT Narrative Authorizing ProviderResult TypeResult StatusHeather Scullin DOCHEMISTRY ORDERABLESFinal ResultPerforming OrganizationAddressCity/State/ZIP CodePhone Number [facility] [address] [place] [address], [facility] [phone] [facility] [address] [place] [address], [facility] [phone] from Last 3 Months or Most Recently Relevant to Health Maintenance Insurance Advance Directives TypeDate RecordedPatient RepresentativeExplanationACP-Advance Directive01/10/2023 3:13 PM * Full Code (Latest Code Status on File) Date ActivatedDate InactivatedComments08/29/2024 8:10 AM09/18/2024 5:50 PM * Full Code Date ActivatedDate InactivatedComments07/23/2022 5:55 PM08/02/2022 1:07 AM NameRelationshipHealthcare Agent RelationshipCommunicationCheryl Rosemary Brother/SisterPrimary Decision Maker* Richar SchafferNiece/NephewSecondary Decision Maker* Care Teams Team MemberRelationshipSpecialtyStart DateEnd Date Oliva Simons MD [address] [place] [id number] [facility] - Llqmucf09/16/13
--- OUTSIDE RECORDS SUMMARY | 2025-02-23 16:39 | XMS_ITS | Clinical Summary ---
Author Organization [facility] Address [address] [place] [address] Care Team Providers Care Cornice Maker Name Role Phone Unavailable Primary Care Provider Unavailabl e Social History Tobacco UseTypesPacks/DayYears UsedDateSmoking Tobacco: Never Assessed CommentsUnknownSex and Gender InformationValueDate RecordedSex Assigned at Not on fileLegal YriQqyxxh65/15/2023 6:44 PM EDTGender IdentityNot on fileSexual OrientationNot on file Plan of Treatment Not on file Insurance
--- OUTSIDE RECORDS SUMMARY | 2025-02-23 16:40 | XMS_ITS | Clinical Summary ---
Author Organization [facility] Address [address] [place] [address] Phone Care Team Providers Care Rn Ent Name Role Phone Unavailable Primary Care Provider Unavailabl e Social History Tobacco UseTypesPacks/DayYears UsedDateSmoking Tobacco: Never Assessed CommentsUnknownSex and Gender InformationValueDate RecordedSex Assigned at Not on fileLegal HcqEmzxec58/26/2022 10:23 AM ESTGender IdentityNot on file Sexual OrientationNot on file Last Filed Vital Signs Vital SignReadingTime TakenCommentsBlood Jejlezbl313/7307 3:05 PM EDT Mzdrc9756/12/2022 3:05 PM EDTTemperature--Respiratory Rate--Oxygen Fiantlxmqq39% 10/25/2021 3:05 PM EDTInhaled Oxygen Concentration--Azbjag13.5 kg (140 lb) 10/25/2021 3:05 PM YYHHnosyr704.6 cm (5' 6 )10/25/2021 3:05 PM EDTBody Mass Index22.607 3:05 PM EDT Plan of Treatment Health MaintenanceDue DateLast DoneCommentsCT Ffckwouzmixd81/14/1967Colonoscopy 1966Colorectal Cancer Wmbxdwpxr94/14/1967FIT-DNA (Cologuard)1966FIT 1966HIV Ajtsjhntb99/14/1967Lipid Panel1966 0968Mcmsfmzowarlr39/14/1967TSH Level1966Yearly Adult Vsimoboi88/14/1967MMR Vaccines (1 of 1 - Standard series)1967Hepatitis C Jdlecvlsf69/14/1985Hepatitis B Vaccines (1 of 3 - 19+ 3-dose series)1985Cervical Cancer Gkmyhlntn31/14/1988HPV/Cotest 1987Pap Smear1987DTaP/Tdap/Td Vaccines (1 - Tdap)1988Mammogram 2006Pneumococcal Vaccine (1 of 1 - PCV)2016Zoster Vaccines (1 of 2) 2016Influenza Vaccine (#1)5COVID-19 Vaccine (1 - season) 2024HIB VaccinesAged OutNo longer eligible based on patient's age to complete this topicHPV VaccinesAged OutNo longer eligible based on patient's age to complete this topicHepatitis A VaccinesAged OutNo longer eligible based on patient's age to complete this topicIPV VaccinesAged OutNo longer eligible based on patient's age to complete this topicMeningococcal VaccineAged OutNo longer eligible based on patient's age to complete this topicRotavirus VaccinesAged Out No longer eligible based on patient's age to complete this topic
--- OUTSIDE RECORDS SUMMARY | 2025-02-23 16:40 | XMS_ITS | Clinical Summary ---
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 Name Role Phone Arlene Gaffney MD Unavailable [phone] Daniel August MD Unavailable Source Comments The following information is NOT included in Care Everywhere downloads:Psychiatric notes, ECG results, Cardiac Rehab notes, Pulmonary Function notes, data from [employer] (includes but not limited toPregnancy data,audiograms, eye exams, pre-surgical evaluation notes, well-child exam data).[facility] Allergies Active AllergyReactionsCriticalityNoted YrawAbayunhuAsvvqdryyy90/11/2024 Aqayaeqhteibzqf39/11/2024MidazolamHives,SxkxyKjwwll09/05/2021OrphenadrineRash, Hives05/12/2022 Medications MedicationSigDispense QuantityRefillsLast FilledStart DateEnd DateStatus metoprolol (TOPROL-XL) 100 mg XL tablet Take 100 mg by mouth every 12 hours. 6am/6pm10/21/2022ctive lisinopril (ZESTRIL) 20 MG tablet Take 20 mg by mouth daily.03/21/2023ctive LACTOBACILLUS ORAL Take 1 Capsule by mouth daily.06/15/2022ctive ipratropium (ATROVENT) 0.06 % nasal spray Use 2 Sprays in each nostril every 8 hours.Active naloxone 4 mg/0.1 mL nasal liquid Use 1 [place] in one nostril (alternate sides) as needed for Drug Overdose (and call 911). every 2-3 min, until assistance arrives. 2 Each 9:17 AM EDT07/12/2023ctive Posaconazole (NOXAFIL) [address] Take 3 Tablets by mouth daily. 42 Tablet 07/12/2023ctive senna (SENOKOT) 8.6 MG tablet Take 1 Tablet by mouth at bedtime as needed for Constipation for up to 14 days. 14 Tablet 07/12/2023 9:17 AM EDT07/12/2023ctive insulin lispro (HumaLOG) 100 UNIT/ML injection Inject 300 Units into the pump. Draw up 3ml (300U) to fill insulin pump 10 mL 07/12/2023 9:17 AM EDT07/12/2023ctive insulin pen needle 31g x 5 mm Patten for Lantus solostar 100 Each 07/12/2023 9:17 AM 07/12/2023ctive insulin glargine (LANTUS SOLOSTAR/BASAGLAR KWIKPEN) 100 UNIT/ML pen Inject 30 Units under the skin at bedtime. Keep on hand for emergency use 30 mL 07/12/2023 9:17 AM EDT07/12/2023ctive insulin syringe-needle u-100 31g x 5/16 0.3 ml (TRUEplus Insulin Syringe) Use as directed 100 Each 07/12/2023 9:17 AM EDT07/12/2023ctive diphenhydrAMINE-APAP, sleep, (Tylenol PM Extra Strength) 25-500 MG TABS Take 2 Tablets by mouth as needed for Pain (L knee). Pt reports she is taking Tylenol Extra Strength at night to help with painActive Active Problems ProblemNoted DateDiagnosed DateHydrocephalus in diseases classified elsewhere 07/13/2023Small bowel olcowoxtwpf08/11/2024 Immunizations ImmunizationAdministration DatesNext DueInfluenza, Injectable, MDCK, Quadrivalent, Preservative (ZUX=982)12/26/2018,12/25/2017Influenza, injectable, quadrivalent, preservative free (RHH=689)04/26/2017Influenza, injectable, trivalent, preservative (QXS=300)01/17/2021Influenza, novel D2I6-03, injectable, preservative-free (JFN=822)02/25/2009Pneumococcal polysaccharide 23 Valent (PPSV23) (CVX=33)02/19/2021,09/28/2005TST, unspecified formulation (CVX=98) 05/12/2022 Social History Tobacco UseTypesPacks/DayYears UsedDateSmoking Tobacco: NeverSmokeless Tobacco: Never Tobacco Cessation:Counseling Given: Not Answered [facility] UtilitiesAnswerDate RecordedIn the past 12 months has the [employer], gas, oil, or water company threatened to shut off services in your home?No07/12/2023 Overall Financial Resource Strain (CARDIA)AnswerDate RecordedHow hard is it for you to pay for the very basics like food, housing, medical care, and heating?Not very hard07/12/2023Hunger Vital SignAnswerDate RecordedWithin the past 12 months, you worried that your food would run out before you got the money to buy more.Never true07/12/2023Within the past 12 months, the food you bought just didn't last and you didn't have money to get more.Never true07/12/2023RAPARE - TransportationAnswerDate RecordedIn the past 12 months, has lack of transportation kept you from medical appointments or from getting medications?No 07/12/2023In the past 12 months, has lack of transportation kept you from meetings, work, or from getting things needed for daily living?No07/12/2023 Housing Stability Vital SignAnswerDate RecordedIn the last 12 months, was there a time when you were not able to pay the mortgage or rent on time?No07/12/2023In the last 12 months, how many places have you lived?In the last 12 months, was there a time when you did not have a steady place to sleep or slept in ashelter (including now)?No07/12/2023Utilities - HistoricalAnswerDate RecordedIn the past 12 months has the [employer], gas, oil, or water company threatened to shut off services in your home?No07/12/2023CommentsNoSex and Gender InformationValueDate RecordedSex Assigned at BirthNot on fileLegal TctDyvhcl83/11/2024 2:10 AM EDTGender IdentityNot on fileSexual OrientationNot on file Last Filed Vital Signs Vital SignReadingTime TakenCommentsBlood Jzpqkaxa237/6204 11:22 AM EDT Gtyag1975 11:22 AM VCFRxbrodgyfjx22.9 ??C (98.4 ??F)07/13/2023 5:47 AM EDTRespiratory Sjvl287907/13/2023 5:47 AM EDTOxygen Ehxnaveuth151%07/26/2023 11:22 AM EDTInhaled Oxygen Concentration--Nrzyoy74.3 kg (159 lb 6.3 oz)06/27/2023 8:33 PM AUTNiddxm146.6 cm (5' 6 )06/27/2023 8:33 PM EDTBody Mass Index25.7306/27/2023 8:33 PM EDT Plan of Treatment Health MaintenanceDue DateLast IakkFsiemjtqRdiiirpdlpk47/14/1967Foot Exam 1966Eye Exam1966Lipid Aweluye1105/31/1966Urine Protein (microalbumin) 1966HIV Test1981Hepatitis C Mpngsnfn62/14/1985Tdap Mptuuit4305/30/1984 Hepatitis A (HAV) Vaccine (optional start 19+ years)1985Hepatitis B (HBV) Vaccine (1 of 3 - 19+ 3-dose series)1985Pap Smear1987Annual Wellness Visit (G0438)04/16/19992573Zgavfyxtuax43/14/2007CRC Gvtbiahub34/14/2012Cologuard (Stool DNA)2011FIT2011Shingles (RZV) Vaccine (1 of 2)2016 Pneumococcal Vaccine(s) (50+ yrs) (2 of 2 - PCV)/09/2020, 09/28/2005 Hemoglobin A1C/, 03/19/2023, 07/21/2022, Additional history existsBasic Metabolic Panel503/, 07/12/2023, 07/11/2023, Additional history existsCOVID-19 Vaccine ( season)2024 08/26/2021, 03/08/2021, 06/11/2020, Additional history existsInfluenza Vaccine (#1)510/07/2020, 12/26/2018, 12/25/2017, Additional history exists Medical Devices ImplantedTypeAreaManufacturerDevice IdentifierShelf Expiration DateModel / Serial / LotCatheter Xtrn Diana 3-15cm Vntrc Implanted:Qty: 1 on 06/27/2023 by Jayshree Escalona MD at INPATIENT DEPARTMENTS ConnectorRight: ErpwPcddxa53/[id number] / / [id number]qibnfGglqjo IdentifierShelf Expiration DateModel / Serial / LotStent 7 X 90 Ureteral Single-J [id number] - [id number] Implanted:Qty: 1 on 06/27/2023 by Arlene Gaffney MD at INPATIENT DEPARTMENTS Explanted:Qty: 1 on 07/19/2023 by Darnell Wallace [employer] [id number] / / [id number] Procedures Procedure NamePriorityDate/TimeAssociated DiagnosisCommentsBASIC METABOLIC PANEL STAT07/13/2023 5:31 AM EDT HEMOGLOBIN A1CLab Add-On07/10/2023 3:55 AM EDT from Last 3 Months or Most Recently Relevant to Health Maintenance Results * (ABNORMAL) BASIC METABOLIC PANEL (07/13/2023 5:31 AM EDT)ComponentValueRef RangeTest MethodAnalysis TimePerformed AtPathologist RwbvmhkerKxvzyzo9448 - 109 mg/dL07/13/2023 5:56 AM EDTM PATHOLOGY IBQITRGOQWAxiptg547598 - 145 mmol/L07/13/2023 5:56 AM EDTM PATHOLOGY LABORATORYPotassium3.53.5 - 5.0 mmol/L07/13/2023 5:56 AM EDTM PATHOLOGY LABORATORYCarbon Hihvoof5225 - 31 mmol/L07/13/2023 5:56 AM EDTM PATHOLOGY IBINNIUPHVFcsgaura872(H)98 - 107 mmol/L07/13/2023 5:56 AM [facility] PATHOLOGY LABORATORYBlood Urea Nitrogen6(L)7 - 25 mg/dL07/13/2023 5:56 AM [facility] PATHOLOGY LABORATORYCreatinine0.40(L)0.60 - 1.20 mg/dL07/13/2023 5:56 AM [facility] PATHOLOGY LABORATORYCalcium8.0(L)8.6 - 10.3 mg/dL07/13/2023 5:56 AM [facility] PATHOLOGY LABORATORYAnion Gap9(L)10 - 20 07/13/2023 5:56 AM [facility] PATHOLOGY LABORATORYEstimated GFR (CKD-EPI)115>=60 mL/min/1.34oii2507/13/2023 5:56 AM [facility] PATHOLOGY LABORATORYComment: 2020 CKD EPI Equation using Creatinine without Race Comment: ??Estimated glomerular filtration rate (eGFR) is calculated without a race coefficient. Values should be interpreted in the context of the patient's full clinical presentation. Reference: 1. Cooper C, Liv M, Karyn VILCHIS, et al.. A Unifying Approach for GFR Estimation: Recommendations of the NKF-ASN Task Force on Reassessing the Inclusion of Race in Diagnosing Kidney Disease. AmericanJournal of Kidney Diseases 2021;79(2):268-88.e1. 2. N Engl J Med 1 Vol. 385 Issue 19 Pages 4372-9676 Specimen (Source)Anatomical Location / LateralityCollection Method / Volume Collection TimeReceived TimeBloodBLOOD SPECIMEN / UnknownVenipuncture / Unknown 07/13/2023 5:31 AM EDT07/13/2023 5:34 AM EDT Narrative Authorizing ProviderResult TypeResult StatusAli Christel [facility] LABFinal ResultPerforming OrganizationAddressCity/State/ZIP CodePhone Number [facility] [address] [place] [address] * (ABNORMAL) HEMOGLOBIN A1C (07/10/2023 3:55 AM EDT)ComponentValueRef RangeTest MethodAnalysis TimePerformed AtPathologist SignatureHemoglobin A1c6.6(H)4.0 - 5.6 %07/10/2023 9:11 PM [facility] PATHOLOGY LABORATORYEstimated Avg Bblcmwm772qp/dL07/10/2023 9:11 PM [facility] PATHOLOGY LABORATORYSpecimen (Source)Anatomical Location / LateralityCollection Method / VolumeCollection TimeReceived TimeBloodBLOOD SPECIMEN / UnknownVenipuncture / Ftfpinz3907/10/2023 3:55 AM EDT07/10/2023 4:34 AM EDT Narrative Authorizing ProviderResult TypeResult StatusSandy Baghdy DO98 GENERAL LABFinal ResultPerforming OrganizationAddressCity/State/ZIP CodePhone Number [facility] [address] from Last 3 Months or Most Recently Relevant to Health Maintenance Insurance * Guarantor: Maranda Borges TypeRelation to PatientDate of BirthPhone Billing AddressPersonal/ElzwcpFnis23/14/1966 [facility] [place] [address] Advance Directives * Full Code (Latest Code Status on File) Date ActivatedDate InactivatedComments06/25/2023 5:20 PM07/13/2023 12:31 PM QuestionAnswerCommentsDocumentation of decision process for this code status:* Discussed with patient or surrogate.?? This is the code status chosen by the patient/surrogate. Care Teams Team MemberRelationshipSpecialtyStart DateEnd Date Arlene Gaffney MD [address] [place] [address] PhysicianUrology08/18/23 Daniel August MD [address] [place] [address] [place] [address] PhysicianNeurosurgery08/18/23
--- OUTSIDE RECORDS SUMMARY | 2025-02-23 16:40 | XMS_ITS | Clinical Summary ---
Author Organization [facility] Address [address] [place] [address] Care Team Providers Care [employer] Sports Coach Name Role Phone Unavailable Primary Care Provider Unavailabl e Allergies Active AllergyReactionsCriticalityNoted DateCommentsMeperidineGI Intolerance 10/20/2023 vomitting QwvgnhyuerkpiiqSndcQbe70/06/3654RpupaewlucfpEfwsBir23/06/2024MidazolamOther (See Comments)10/20/2023 Combative behavior reaction Medications MedicationSigDispense QuantityRefillsLast FilledStart DateEnd DateStatus aspirin 81 MG chewable tablet Indications:dvt ppxChew 1 tablet (81 mg total) in the morning and 1 tablet (81 mg total) before bedtime. Indications: dvt ppx.11/07/2023ctive gabapentin (NEURONTIN) 300 MG capsule Take 1 capsule (300 mg total) by mouth nightly.11/07/2023ctive lisinopril (ZESTRIL) 40 MG tablet 1 tablet (40 mg total) by Enteral route in the morning.11/07/2023ctive magnesium oxide 400 (240-250 Mg) MG tablet Take 2 tablets (800 mg total) by mouth nightly.11/07/2023ctive metoprolol succinate XL (TOPROL-XL) 100 MG 24 hr tablet Take 1 tablet (100 mg total) by mouth in the morning and 1 tablet (100 mg total) before bedtime.11/07/2023ctive ondansetron ODT (ZOFRAN-ODT) 4 MG disintegrating tablet Take 1 tablet (4 mg total) by mouth every 6 (six) hours as needed for nausea or vomiting.11/07/2023ctive oxyCODONE (ROXICODONE) 5 MG immediate release tablet Indications:Acute PainTake 2 tablets (10 mg total) by mouth nightly. May also take 1 tablet (5 mg total) every 4 (four) hours as needed for severe pain. Indications: Acute Pain. Max Daily Amount: 40 mg. 90 tablet 11/07/2023ctive posaconazole (NOXAFIL) 100 MG tablet delayed-release tablet delayed release Take 3 tablets (300 mg total) by mouth in the morning.11/07/2023ctive senna-docusate (SENOKOT-S) 8.6-50 MG 1 tablet by Enteral route in the morning and 1 tablet before bedtime.11/07/2023 Active vitamin B-12 (CYANOCOBALAMIN) 1000 MCG tablet Take 1 tablet (1,000 mcg total) by mouth nightly.11/07/2023ctive Active Problems ProblemNoted DateDiagnosed DdtsNxoatmreevsbb83/06/2024 Immunizations ImmunizationAdministration DatesNext DuePfizer SARS-CoV-2 Vaccination (Mg Cap) 10/20/2023(Deferred: Offered and declined - na) Social History Tobacco UseTypesPacks/DayYears UsedDateSmoking Tobacco: NeverSmokeless Tobacco: Never Tobacco Cessation:Counseling Given: Not Answered AUDIT-CAnswerDate RecordedQ1: How often do you have a drink containing alcohol? Never10/20/2023Q2: How many drinks containing alcohol do you have on a typical day when you are drinking?Patient does not drink10/20/2023Q3: How often do you have six or more drinks on one occasion?Never10/20/2023[facility] [place] [facility] Occup[facility] Health - Occupational Stress QuestionnaireAnswerDate RecordedDo you feel stress - tense, restless, nervous, or anxious, or unable to sleep at night because yourmind is troubled all the time - these days?Only a vewbna3911/07/2023 Domestic Abuse AssessmentAnswerDate RecordedDo you feel safe in your relationships at home?Yes10/20/2023hysical PbocfXtjocu50/06/2024HRSN Domestic Abuse - Type of AbuseNot on file10/20/2023HRSN Domestic Abuse - Time FrameNot on file10/20/2023HRSN Domestic Abuse - Signs and SymptomsNot on file10/20/2023 Verbal IigpoQezopd62/06/2024HRSN Domestic Abuse - Reported ToNot on file 10/20/2023SM SDOH Transportation SourceAnswerDate RecordedHas lack of transportation kept you from medical appointments or from getting medications?No 11/07/2023Has lack of transportation kept you from meetings, work, or from getting things needed for daily living?No11/07/2023HRSN Depression PHQ-2Answer Date RecordedFeeling down, depressed, or qpshuzty015/24/2024Little interest or pleasure in doing hgipil199CommentsUnknownSex and Gender InformationValueDate RecordedSex Assigned at BirthNot on fileLegal SexFemale 10/19/2023 3:25 PM EDTGender IdentityNot on fileSexual OrientationNot on file Last Filed Vital Signs Vital SignReadingTime TakenCommentsBlood Wyujaluh952/67011/07/2023 6:55 AM EDT Rpaoj841811/07/2023 6:55 AM MSHPbstikiycrp39.6 ??C (97.9 ??F)11/07/2023 6:55 AM EDTRespiratory Rszq524411/07/2023 6:55 AM EDTOxygen Qzqwehorum33%11/07/2023 6:55 AM EDTInhaled Oxygen Concentration--Arhjrf13.6 kg (157 lb 12.8 oz)11/03/2023 4:00 AM QDGBoixyt921.6 cm (5' 6 )10/22/2023 11:29 AM EDTBody Mass Index25.47 10/22/2023 11:29 AM EDT Plan of Treatment Health MaintenanceDue DateLast DoneCommentsCT Bdiosnsjaskp18/14/1967FIT-DNA (Cologuard)1966FIT1966FOBT1966HPV/PAP1966Sigmoidoscopy 1966Annual Visit Topic1967MMR Vaccines (1 of 1 - Standard series) 1967Hepatitis C Pdnwlxvpf74/14/1985DTaP/Tdap/Td Vaccines (1 - Tdap) 1985Hepatitis B Vaccines (1 of 3 - 19+ 3-dose series)1985 Pneumococcal Vaccine: Pediatrics (0 to 5 years) and At-Risk Patients (6 to 64 Years) (1 of 4 - PCV)1985Pap Smear1987Cervical Cancer Screening 1996HPV/Umgmem8305/30/1996HPV05/30/19966217Xtwsjpnqu43/14/2007Colonoscopy /2Colorectal Cancer Rmaopqodn58/08/2032HIB VaccinesAged OutNo longer eligible based on patient's age to complete this topicHPV VaccinesAged OutNo longer eligible based on patient's age to complete this topicHepatitis A VaccinesAged OutNo longer eligible based on patient's age to complete this topic IPV VaccinesAged OutNo longer eligible based on patient's age to complete this topicMeningococcal VaccineAged OutNo longer eligible based on patient's age to complete this topic Medical Devices ImplantedTypeAreaManufacturerDevice IdentifierShelf Expiration DateModel / Serial / LotInsulin Pump-05/19/1994 Implanted:05/19/1994 (Quantity not on file)Insulin PumpLeft: Abdomen Advance Directives * Full Resuscitation (Latest Code Status on File) Date ActivatedDate InactivatedComments10/20/2023 4:39 PM11/07/2023 6:27 PMQuestion AnswerCommentsI have discussed this order with the patient or his/her surrogate and have received informed consent.* Yes
--- OUTSIDE RECORDS SUMMARY | 2025-02-23 16:40 | XMS_ITS | Clinical Summary ---
Author Organization [facility] Address [address] [place] [address] Care Team Providers Care Ambulance Assistant Name Role Phone Unavailable Primary Care Provider Unavailabl e Social History Tobacco UseTypesPacks/DayYears UsedDateSmoking Tobacco: Never Assessed CommentsUnknownSex and Gender InformationValueDate RecordedSex Assigned at Not on fileLegal EzqVstyzg40/29/2022 10:15 PM EDTGender IdentityNot on file Sexual OrientationNot on file Plan of Treatment Health MaintenanceDue DateLast DoneCommentsCT Itfqcpbzuqkv03/14/1967Colonoscopy 1966Colorectal Cancer Nefnfopfn24/14/1967FIT-DNA1966FIT1966 FOBT1966Medicare Annual Wellness (AWV)1966 0754Pzmoecztxctxh77/14/1967 Depression Enevsbxqw39/14/1979Hepatitis B Vaccines (1 of 3 - 19+ 3-dose series) 1985Pap Smear1987Adult Ytnvcvv2305/30/1988Cervical Cancer Screening 1996HPV/Wkjafb1805/30/19964304Tcaqubgki10/14/2007Zoster Vaccines (1 of 2) 2016Influenza Vaccine (#1)2024HIB VaccinesAged OutNo longer eligible based on patient's age to complete this topicHPV VaccinesAged OutNo longer eligible based on patient's age to complete this topicIPV VaccinesAged OutNo longer eligible based on patient's age to complete this topicMeningococcal B VaccineAged OutNo longer eligible based on patient's age to complete this topic Meningococcal VaccineAged OutNo longer eligible based on patient's age to complete this topicPneumococcal Vaccine: Pediatrics (0 to 5 Years) and At-Risk Patients (6 to 64 Years)Aged OutNo longer eligible based on patient's age to complete this topicRotavirus VaccinesAged OutNo longer eligible based on patient's age to complete this topic Insurance
--- OUTSIDE RECORDS SUMMARY | 2025-02-23 16:59 | XMS_ITS | CCD ---
Author Organization [facility] Care Team Providers Care Inclusion Specialist Name Role Phone Omestella Nayely Unavailable Unavailable Unavailable Unavailable Unavailable Unavailable Unavailable Unavailable Kalli Simons Primary Care Provider [phone] KALLI SIMONS Primary Care Unavailable KALLI SIMONS Referring Unavailable MACI VILLASENOR Referring Unavailable KALLI SIMONS Primary Care Unavailable KALLI SIMONS Primary Care Unavailable KALLI SIMONS Referring Unavailable Omestella, Nayely Unavailable Unavailable Unavailable Unavailable Zarina Mejia Primary Care Provider Kalli Simons MD Primary Care Provider Kalli Simons MD Primary Care Provider Kalli Simons MD Primary Care Provider DO Juliette Berumen Primary Care Provider MD Raul Montez Emergency Provider [phone] MD Jayashree Watts Admit Provider [phone] MD Jayashree Watts Attending Provider Kalli Simons MD Primary Care Provider [phone] Juliette Berumen Unavailable YAMEL ., DR CLARE Lou Consulting Unavailable CECE, DR ALYCE Ventura Admitting Unavailable CECE, DR ALYCE Ventura Attending Unavailable JAMAICA, DR SEGOVIA Primary Care Unavailable CECE, DR ALYCE Ventura Consulting Unavailable SALINASCHRON ., JONNIE BARRIENTOS Consulting UnavailJorgito Mondragon, DR JARAMILLO Consulting Unavailable ANA ROSA BARCLAY Consulting Unavailable ANTHONY GARVEY Consulting Unavailable SISTER, BETHANY Consulting Unavailable JAMAICA, DR SEGOVIA Admitting Unavailable JAMAICA, DR SEGOVIA Attending Unavailable JAMAICA, DR SEGOVIA Primary Care Unavailable JAMAICA DR SEGOVIA Admitting Unavailable JAMAICA, DR SEGOVIA Attending Unavailable BALL, DR SEGOVIA Primary Care Unavailable MISC, DR JORDAN Admitting Unavailable MISC, DR JORDAN Attending Unavailable JAMAICA, DR SEGOVIA Primary Care Unavailable BALL, DR SEGOVIA Primary Care Unavailable RAGHAV, MARIANELA Admitting Unavailable RAGHAV, MARIANELA Attending Unavailable RAGHAV, MARIANELA Consulting Unavailable EMANUEL BEST Consulting Unavailable JIMY, AKOSUA Consulting Unavailable RAGHAV, MARIANELA Admitting Unavailable CINDY, DR KALLI Lou Primary Care Unavailable RAGHAV, MARIANELA Attending Unavailable RAGHAV, MARIANELA Consulting Unavailable ESTEE THOMAS Consulting Unavailable MELIDA, DR ALY Mackay Admitting Unavailable MONTEZ, DR ALY Mackay Attending Unavailable MONTEZ, DR ALY Mackay Consulting Unavailable JAMAICA, DR SEGOVIA Primary Care Unavailable CAMILO, KATIE Consulting Unavailable JODYMAMADOU LEE Consulting Unavailable JAMAICA, DR SEGOVIA Primary Care Unavailable DIAB ., AARTI Admitting Unavailable DIAB ., AARTI Attending Unavailable KLYM, KATIE Consulting Unavailable READER, GAURI Consulting Unavailable ITKIN, DELROY Consulting Unavailable DIAB ., AARTI Consulting Unavailable NADERERandy, DR ALYCE Ventura Admitting Unavailable MELIDA, DR ALY Mackay Consulting Unavailable NADERERandy, DR ALYCE Ventura Attending Unavailable JAMAICA, DR SEGOVIA Primary Care Unavailable NADERER, DR ALYCE Ventura Consulting Unavailable HICKMAN, GRACE Consulting Unavailable WILKS, KIN Consulting Unavailable HOY ., DR ASTORGA Admitting Unavailable HOY ., DR ASTORGA Attending Unavailable HOY ., DR ASTORGA Consulting Unavailable BALL, DR SEGOVIA Primary Care Unavailable ZIEBER, DR BRANDON Mackay Consulting Unavailable BEATRICE ., JOVON Consulting Unavailable LACEY, DANIEL C. Consulting Unavailable FALVO, MADELEINE Consulting Unavailable Cathie, Jodie Consulting Unavailable LASHAUN, RADHA Consulting Unavailable DO Juliette Berumen Primary Care Provider [phone] STEVEN Headley Attending Provider Kalli Simons Unavailable DO Juliette Berumen Attending Provider [phone] Deandra Roth Primary Care Unavailable Deandra Roth Primary Care Unavailable QUEENIE VILLASENOR Attending Un available Shelbi Lopez Unavailable Unavailable Primary Care Provider UnavailKalli Mcmullen MD Primary Care Provider Arlene Chambers MD Unavailable [phone] Daniel Figueroa MD Unavailable HO, BROOKS Admitting Unavailable HERRERA, ISIS Referring Unavailable PROVIDER, UNKNOWN Attending Unavailable HERRERA, ISIS Referring Unavailable PROVIDER, UNKNOWN Admitting Unavailable PROVIDER, UNKNOWN Attending Unavailable HERRERA, ISIS Referring Unavailable PROVIDER, UNKNOWN Admitting Unavailable PROVIDER, UNKNOWN Attending Unavailable FIGUEROA, DANIEL Attending Unavailable PROVIDER, UNKNOWN Admitting Unavailable PROVIDER, UNKNOWN Admitting Unavailable ARLENE CHAMBERS Attending Unavailable PROVIDER, UNKNOWN Admitting Unavailable PROVIDER, UNKNOWN Attending Unavailable PROVIDER, UNKNOWN Attending Unavailable PROVIDER, UNKNOWN Admitting Unavailable HO, BROOKS Attending Unavailable HERRERA, ISIS Referring Unavailable PROVIDER, UNKNOWN Admitting Unavailable HO, BROOKS Admitting Unavailable HERRERA, ISIS Referring Unavailable PROVIDER, UNKNOWN Attending Unavailable HO, BROOKS Admitting Unavailable HERRERA, ISIS Referring Unavailable PROVIDER, UNKNOWN Attending Unavailable HO, BROOKS Admitting Unavailable HERRERA, ISIS Referring Unavailable PROVIDER, UNKNOWN Attending Unavailable HO, BROOKS Admitting Unavailable PROVIDER, UNKNOWN Attending Unavailable HERRERA, ISIS Referring Unavailable HO, BROOKS Admitting Unavailable HERRERA, ISIS Referring Unavailable PROVIDER, UNKNOWN Attending Unavailable FIGUEROA, DANIEL Referring Unavailable PROVIDER, UNKNOWN Admitting Unavailable PROVIDER, UNKNOWN Attending Unavailable HO, BROOKS Admitting Unavailable HERRERA, ISIS Referring Unavailable PROVIDER, UNKNOWN Attending Unavailable HO, BROOKS Admitting Unavailable HERRERA, ISIS Referring Unavailable PROVIDER, UNKNOWN Attending Unavailable KALLI SIMONS Primary Care Physician [phone] [employer] Attending Unavailable Unavailable Primary Care Provider Unavailabl e Unavailable Primary Care Provider Unavailabl e KALLI SIMONS Primary Care Unavailable SPENCER MONTGOMERY Attending Unavailable KALLI SIMONS Primary Care Unavailable SHELBI RAMOS Referring Unavailable KALLI SIMONS Primary Care Unavailable Juliette Berumen DO Primary Care Provider Sharan Dominguez APRN Attending Provider Juliette Berumen DO Attending Provider Juliette Berumen DO Primary Care Provider Sharan Dominguez APRN Attending Provider Juliette Berumen DO Primary Care Provider Juliette Berumen DO Attending Provider Sharan Dominguez APRN Attending Provider Sharan Dominguez APRN Attending Provider Chip Hagen MD Attending Provider [phone] Sharan Dominguez APRN Attending Provider Vladimir Rios MD Attending Provider Sharan Dominguez APRN Attending Provider [phone] SCSAPNA CONCEPCIÓN Admitting Unavailable CONCEPCIÓN WAGNER Attending Unavailable SIMNOS, KALLI Primary Care Unavailable ALY GUAMAN Consulting Unavailable RAMONITA PARKS Consulting Unavailable SINAN KRISHNAMURTHY Consulting Unavailable Unavailable Primary Care Provider UnavailJuliette Casillas DO Primary Care Provider Maurilio Huynh DO Attending Provider Provider, Outside Attending Provider Unavailable Veronica Rodriguez MD Attending Provider [phone] Madhavi BOARD MIXER TENDER-CMolly Attending Provider Juliette Berumen DO Attending Provider [phone] Juliette Berumen DO Primary Care Provider Sharan Dominguez APRN Attending Provider Juliette Berumen DO Primary Care Provider [phone] Sharan Dominguez APRN Attending Provider Juliette Berumen Primary Care Unavailable Sharan Dominguez Admitting Unavailable Sharan Dominguez Attending Unavailable [place] Juliette Primary Care Unavailable Sharan Dominguez Admitting Unavailable Sharan Dominguez Attending Unavailable Juliette Berumen Admitting Unavailable [place], Juliette Primary Care Unavailable Juliette Berumen Attending Unavailable Vladimir Rios Admitting Unavailable Vladimir Rios Attending Unavailable [place], Juliette Primary Care Unavailable Chip Hagen Admitting Unavailable hCip Hagen Attending Unavailable CINDY, KALLI E Primary Care Unavailable DANIELS, NOEL Referring Unavailable LISBETH DANIELSA Attending Unavailable SIMONS, KALLI E Primary Care Unavailable PETERSON GONSALEZ Attending Unavailable SIMONS, KALLI E Primary Care Unavailable LISBETH DANIELSA Attending Unavailable SIMONS, KALLI E Primary Care Unavailable DUSTY DANIELSEYA Attending Unavailable DANIELS, NOEL Referring Unavailable NASEEM BARKSDALE Attending UnavailASTRID Seo Referring Unavailable SIMONS, KALLI E Primary Care Unavailable SIMONS, KALLI E Primary Care Unavailable LISBETH DANIELSA Attending Unavailable DANIELS, NOEL Referring Unavailable SIMONS, KALLI E Primary Care Unavailable SCHWIETERMAN, MARLENE Attending Unavailable ISADAMARCELS Referring Unavailable SIMONS, KALLI E Primary Care Unavailable SIMONS, KALLI E Primary Care Unavailable BIANCA LITTLE Attending Unavailable SCHWIETERMAN, MARLENE Referring Unavailable ASTRID NAVA Attending Unavailable SIMONS, KALLI E Primary Care Unavailable SIMONS, KALLI E Primary Care Unavailable LISBETH DANIELSA Attending Unavailable DANIELS, NOEL Referring Unavailable SIMONS, KALLI E Primary Care Unavailable ISJAMIE AGOSTO Attending Unavailable CARO BRADLEY Referring Unavailable ISJAMIE AGOSTO Attending Unavailable SIMONS, KALLI E Primary Care Unavailable SHELBI RAMOS Attending Unavailable SIMONS, KALLI E Primary Care Unavailable SCHWIETERMAN, MARLENE Referring Unavailable SIMONS, KALLI E Primary Care Unavailable SCHWIETERMAN, MARLENE Referring Unavailable ISJAMIE AGOSTO Attending Unavailable SIMONS, KALLI E Primary Care Unavailable SCHWIETERMAN, MARLENE Referring Unavailable SCHWIETERMAN, MARLENE Attending Unavailable SIMONS, KALLI E Primary Care Unavailable SCHWIETERMAN, MARLENE Referring Unavailable SIMONS, KALLI E Primary Care Unavailable REGGIE BUTLER Attending Unavailable SIMONS, KALLI E Primary Care Unavailable SIMONS, KALLI E Primary Care Unavailable SCHWIETERMAN, MARLENE Referring Unavailable SCHWIETERMAN, MARLENE Attending Unavailable MOLLY HENDRICKSON Referring Unavailable SIMONS, KALLI E Primary Care Unavailable SCHWIETERMAN, MARLENE Referring Unavailable SIMONS, KALLI E Primary Care Unavailable ISTRINY JAMIE Referring Unavailable SIMONS, KALLI E Primary Care Unavailable SCHWIETERMAN, MARLENE Referring Unavailable SIMONS, KALLI E Primary Care Unavailable SCHWIETERMAN, MARLENE Attending Unavailable SIMONS, KALLI E Primary Care Unavailable SIMONS, KALLI E Primary Care Unavailable PADUBIDRI, ANOKHA Referring Unavailable AASHISH MONGE Attending Unavailable SIMONS, KALLI E Primary Care Unavailable PADUBIDRI, ANOKHA Referring Unavailable SIMONS, KALLI E Primary Care Unavailable PADUBIDRI, ANOKHA Referring Unavailable PADUBIDRI, ANOKHA Consulting Unavailable LU, TAWANA Admitting Unavailable SIMONS, KALLI E Primary Care Unavailable JUANA, MAURILIO CHRISTOPHER Referring Unavailable CARO BRADLEY Attending Unavailable SIMONS, KALLI E Primary Care Unavailable PADUBIDRI, ANOKHA Attending Unavailable KALLI SIMONS Primary Care Unavailable DARYL MOREJON Referring Unavailable Unavailable Unavailable Unavailable Allergies Allergy ClassificationReported Allergen(s)Allergy TypeDate of OnsetReaction(s) FacilityBenzodiazepines (2 sources)MidazolamDrug Wvprnmb87-37-8522Tldjde Status ChangeThe [facility] cyclobenzaprine (3 sources)cyclobenzaprine; 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: [Flexeril]Drug Vnmsohy70-62-9736Srwpg XN-Zclmosztqajnb-MAE [place] [address] Work Phone: opioid Agonists (3 sources)Meperidine; 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: [Demerol SOLN]Drug Fjlbhka15-83-7392FS UpsetThe [facility] System Work Phone: Orphenadrine (1 source)Orphenadrine; 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: [Norflex]Drug AllergyRash WL-Uksojqqkhlcdr-[facility] [place] [address] Work Phone: (20 sources)cyclobenzaprine; 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: [Flexeril]Drug Vzkidvg83-86-9790xfawo [facility] Repository (20 sources)Meperidine; 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: [Demerol SOLN]Drug Atnluij70-49-5927ZG Upset, [facility] (20 sources)Orphenadrine; 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: [Norflex]Drug AllergyAshtabula [facility] (20 sources)cyclobenzaprine; 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: [CYCLOBENZAPRINE]Drug Allergy 45-25-2754[facility]jGjgulaknd Clinic (20 sources)Midazolam; 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: [MIDAZOLAM]Drug Obtumqz71-74-6897Sjikhb Status Change, Hives, OtherThe [facility] (20 sources)Meperidine; 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: [MEPERIDINE]Drug Kcvyuey95-30-0529 Dizziness, Dizziness, [facility] (2 sources)Meperidine; 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: [Demerol]Drug Rhfapce87-41-8104CzuOhio [facility] (1 source)MidazolamDrug AllergyThe [facility] Repository (20 sources)Orphenadrine; 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: [ORPHENADRINE]Drug Tfehxns77-66-1634 [facility] Repository (20 sources)OrphenadrineDrug Ynlsqup17-48-4003Aydu, Hives, Other: See Comments [facility] (1 source)No Known Medication Allergies; 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: [No Known Medication Allergies]Propensity to adverse reactions (disorder)[facility] Repository (1 source)cyclobenzaprineDrug Dfheehx24-63-2943[facility]ddnrxurqT[facility] (1 source)MidazolamDrug Zlfypgr40-47-9194XazhrurrbT[facility] City Hospital Rep[facility] (1 source)OrphenadrineDrug Ktzjsgr62-60-8828MvdpclzdqT[facility] City [facility] Rep[facility] Medications Current Medications MedicationDrug Class(es)DatesSig (Normalized)Sig (Original)acetaminophen 325 mg oral tablet (20 sources)Start: 91-32-4401injn 2 tablets by mouth every six hours as needed acetaminophen (TYLENOL) 325 mg tablet Take 2 tablets by mouth every 6 hours as needed for pain. 08/28/2024 ActiveStart: 88-03-7846nqng 2 tablets enteral route every six hours as neededacetaminophen (TYLENOL) 325 mg tablet 2 tablets by ORAL/FEEDING TUBE route every 6 hours as needed for pain. 10/20/2023 Suspended Start: 50-75-0678rctg 1 tablet by mouth every six hoursAcetaminophen 325 mg tablet Active 325 MG PO Every 6 hours July 16, 2023 12:00am Complies with drug therapyStart: 07-12-2023 End: 91-84-5396hbkdlxxkbwsos (TYLENOL) 325 mg tablet 2 Tablets by NG Tube route every 6 hours as needed for up to 14 days. Do NOT exceed 4 Grams acetaminophen daily from all sources 60 Tablet 0 07/12/2023 07/26/2023 ActiveStart: 07-03-2023 650 mg, NG Tube, EVERY 6 HOURS PRN, Starting on Sun07/03/23 at 1145, Until Discontinued, Mild Pain (pain score 1,2,3), Moderate Pain (pain score 4,5,6) Start: 06-27-2023 End: 73-19-4873241 mg, NG Tube, EVERY 4 HOURS PRN, Starting on Sun06/27/23 at 2055, Until Sun07/02/23 at 0818, Mild Pain (pain score 1,2,3)Start: 06-15-2022 End: 46-45-6619koxn 2 tablets by mouth every six hours as neededacetaminophen (TYLENOL) 325 mg tablet Take 2 tablets by mouth every 6 hours as needed for pain. 06/15/2022 10/20/2023 DiscontinuedStart: 65-79-3927iyzl 2 tablets by mouth every six hours as neededacetaminophen (TYLENOL) 325 mg tablet Take 2 tablets by mouth every 6 hours as needed for pain. 0 12/30/2021 ActiveStart: 04-30-2021 End: 99-84-3398rptc 2 tablets by mouth every six hours as needed for pain Acetaminophen 500 mg tablet Discontinued 1000 MG PO Every 6 hours as needed for Pain April 30, 2021 1:00am August 08, 2022 1:28pmStart: 04-30-2021 End: 90-55-5358odag 1000 mg by mouth every six hoursAcetaminophen Discontinued 1000 MG PO Every 6 hours April 30, 2021 1:00am August 08, 2022 1:28pmStart: 02-19-2021 End: 40-32-5693cnrj 2 tablets by mouth every six hours as neededacetaminophen (TYLENOL EXTRA STRENGTH) 500 mg tablet Take 2 tablets by mouth every 6 hours as needed for pain. 30 tablet 02/19/2021 04/13/2021 Discontinuedtake 650 mg rectal route every four hours as neededacetaminophen (TYLENOL) 650 mg suppository 650 mg by RECTAL route every 4 hours as needed for pain or fever (specify temp.). Suspendedtake 1 tablet by mouth every six hours as needed for painAcetaminophen 325 MG 1 tablet as needed Orally every 6 hrs, for pain ActiveComment on above: Take 2 tablets by mouth every 6 hours as needed for pain.acetaminophen 500 mg / diphenhydrAMINE hydrochloride 25 mg oral tablet (13 sources)Histamine-1 Receptor AntagonistdiphenhydrAMINE-APAP, sleep, (Tylenol PM Extra Strength) 25-500 MG TABS Take 2 Tablets by mouth as needed for Pain (L knee). Pt reports she is taking Tylenol Extra Strength at night to help with painActiveacetaminophen 325 mg / HYDROcodone bitartrate 10 mg oral tablet (9 sources)Opioid AgonistStart: 96-74-4608poav 1 tablet by mouth every four hours as needed for painHydrocodone-Acetaminophen 10-325 mg tablet Active 1 TAB PO Every 4 hours as needed for pain November 19, 2024 12:00am Complies with drug therapyStart: 09-26-2024 End: 08-67-0606pkim 1 tablet by mouth every four hours as neededHYDROcodone- Acetaminophen (NORCO) 10-325 mg per tablet Take 1 tablet by mouth every 4 hours as needed. 09/26/2024 10/26/2024 ActiveStart: 97-33-2285NWMFOSX 5 MG-500 MG TAB as necessary 0 04/25/2005 ActiveComment on above:as necessaryaspirin 81 mg oral tablet (20 sources)Platelet Aggregation Inhibitor, Nonsteroidal Anti-inflammatory Drug Start: 72-69-9333hfvt 1 tablet by mouth once dailyAspirin 81 mg tablet Active 81 MG PO Daily November 19, 2024 12:00am Complies with drug therapyStart: 10-25-2023 End: 24-11-4626qzkb 1 tablet by mouth twice daily, then take 1 tablet by mouth twice dailyaspirin, enteric coated (ADULT LOW DOSE ASPIRIN) 81 mg EC tablet Take 1 tablet by mouth two times aday for 28 days, THEN 1 tablet two times a day. 60 tablet 08/28/2024 03/24/2025 ActiveStart: 02-18-2021 End: 18-65-5305sqtu 1 tablet by mouth every twenty-four hoursaspirin 325 mg tablet Take 1 tablet by mouth q 24 HR. You may stop that Aspirin 81mg and resume theAspirin 325mg 10 days after surgery if your urine is clear. 02/18/2021 06/14/2022 DiscontinuedStart: 04-51-6336dbzm 1 tablet by mouth once dailyAspirin 325 MG Oral Tablet TAKE TABLET Daily Quantity: 0 Refills: 0 Ordered: 18-Feb-2019 DO Start : 18-Feb-2019 ActiveStart: 95-75-4407OBIGAEZ 81 MG TAB Take one (1) tablet daily . 0 04/25/2005 Active End: 66-28-9640cscp 1 tablet by mouth once dailyaspirin, enteric coated (ASPIRIN, ENTERIC COATED) 81 mg EC tablet Take 81 mg by mouth once daily. Discontinuedtake 1 tablet by mouth once dailyAspirin 325 mg 325 mg one tab orally daily Not-Takingtake 1 tablet by mouth once dailyAspirin 325 mg 325 mg one tab orally daily ActiveComment on above:Take one (1) tablet daily .Take 81 mg by mouth once daily.Take 1 tablet by mouth q 24 HR. You may stop that Aspirin 81mg and resume the Aspirin 325mg 10 daysafter surgery if your urine is clear.Bacitracin 500 UNIT/GM (9 sources)Bacitracin 500 UNIT/GM 1 application into the lower eyelid of affected eye Ophthalmic Once a day Activebaclofen 10 mg oral tablet (20 sources)gamma-Aminobutyric Acid-ergic AgonistStart: 47-91-7573ctsc 1 tablet by mouth twice daily for muscle spasms and muscle spasms, then take 2 tablets by mouth once daily at bedtime for muscle spasms and muscle spasmsBaclofen 10 mg tablet Active 10 MG PO Daily November 19, 2024 12:00am 1 tablet BID for spasms, 2 tablets QHS for spasms Complies with drug therapyStart: 08-12-2024 End: 48-91-3435ihqv 1 tablet by mouth twice daily, then take 2 tablets by mouth once daily at bedtimebaclofen 10 mg tablet Take 1 tablet by mouth two times a day AND 2 tablets daily at bedtime. 120 tablet 2 08/12/2024 11/10/2024 Active Start: 04-04-2024 End: 73-58-0634uomw 1 tablet by mouth twice dailyBaclofen 10 mg tablet Discontinued 10 MG PO Twice daily 180 90 April 04, 2024 1:50pm May 222024 1:08pm End: 36-75-1783gphbxpam 10 mg tablet Take 10 mg by mouth three times a day. 17rm-75xo-65zf Active End: 66-98-7083vjer 1 tablet by mouth twice dailybaclofen 5 mg tablet Take 10 mg by mouth two times a day. 1 tablet in morning, 1 tablet at night 04/22/2024 Discontinued (Other)baclofen 5 mg tablet Take 10 mg by mouth. 1 tablet in morning, 1 tablet in the afternoon, 2 tabletsat night. 1 tablet at bedtime PRN Activebenoxinate hydrochloride 4 mg/ml / fluorescein sodium 3 mg/ml ophthalmic solution (1 source)Diagnostic DyeStart: 12-23-2024 End: 21-92-5633xchbrzsiyzn-benoxinate 0.3-0.4 % 1 drop (FLURESS)cholecalciferol 0.025 mg oral capsule (20 sources)Vitamin DStart: 53-21-0325ovfe 1 capsule by mouth once daily Cholecalciferol (Vitamin D3) 25 mcg (1,000 unit) capsule Active 25 MCG PO Daily November 19, 2024 12:00am Complies with drug therapyStart: 08-08-2022 End: 25-51-2154nbbc 1 capsule by mouth once dailyCholecalciferol (Vitamin D3) (Vitamin D3) 50 mcg (2,000 unit) Capsule Discontinued 50 MCG PO Daily August 08, 2022 12:00am July 16, 2023 2:04pmcholecalciferol, vitamin D3, (VITAMIN D3 PO) (13 sources)cholecalciferol, vitamin D3, (VITAMIN D3 PO) Take by mouth. Active docusate sodium 100 mg oral capsule (20 sources)Start: 36-50-2357kysx 1 capsule by mouth once dailyDocusate Sodium (Colace) 100 mg capsule Active 100 MG PO Daily November 19, 2024 12:00am Complies with drug therapyStart: 04-30-2021 End: 43-52-5713sfdb 1 capsule by mouth twice dailyDocusate Sodium 100 mg capsule Discontinued 100 MG PO Twice daily April 30, 2021 1:00am August 08, 2022 1:28pmStart: 02-19-2021 End: 51-52-6808phet 1 capsule by mouth twice dailydocusate sodium (COLACE) 100 mg capsule Take 1 capsule by mouth twice daily. 60 capsule 02/19/2021 03/21/2021 Expiredtake 100 mg by mouth once dailyDOCUSATE SODIUM PO Take 100 mg by mouth once daily. Activedocusate sodium 50 mg / sennosides, chcf 8.6 mg oral tablet (20 sources)Start: 45-58-9392tcvq 1 tablet by mouth twice dailysenna-docusate (SENNA-S) 8.6-50 mg per tablet 1 tablet by ORAL/FEEDING TUBE route two times a day. 10/20/2023 ActiveStart: 30-90-9186aogi 1 tablet by mouth twice dailysenna- docusate (SENNA-S) 8.6-50 mg per tablet Take 1 tablet by mouth two times a day. 0 10/10/2023 Suspendeddoxycycline hyclate 100 mg oral capsule (19 sources)Tetracycline-class DrugStart: 16-50-6069pbix 1 capsule by mouth once dailyDoxycycline Hyclate 100 mg capsule Active 100 MG PO Daily December 26, 2024 12:00pm Complies with drug therapyStart: 12-18-2024 End: 81-21-8547adab 1 capsule by mouth twice dailyDoxycycline Hyclate 100 mg capsule Discontinued 100 MG PO Twice daily 02 02December 18, 2024 12:00am December 26, 2024 12:01pmStart: 07-16-2024 End: 73-13-9858ebab 1 capsule by mouth twice dailyDoxycycline Hyclate 100 mg capsule Discontinued 100 MG PO Twice daily July 16, 2024 12:00amApril 2024 2:29pmStart: 05-06-2024 End: 42-92-8059dbzb 1 tablet by mouth twice dailyDoxycycline Hyclate 100 mg tablet Discontinued 100 MG PO Twice daily 02 02May 06, 2024 1:00am May 20, 2024 3:28pmDrug or medicament (substance) (2 sources)Start: 49-27-5077Sqshrwyq on [facility] 07/12/23 at 0830 Insulin Type (in pump): insulin aspart (NOVOLOG) Patient or responsible caregiver may maintain, in conjection with ordering provider: Yes Use previous home settingsStart: 22-25-1726YPGBRZWC, BISACODYL, RECTAL (20 sources)DULCOLAX, BISACODYL, RECTAL by RECTAL route once daily as needed. SuspendedDULCOLAX, BISACODYL, RECTAL by RECTAL route once daily as needed. Activeenteric contrast (will be provided with radiology test) (4 sources)Start: 11-30-2021 End: 82-96-9271ldfpcap contrast (will be provided with radiology test) Indications: Pelvic and perineal pain For CT PELVIS W IVCON order Administer, As Directed One Time Only, via Oral, Rectal, both Oral and Rectal, Enteric Tube, Stoma or Indwelling Catheter, Enteric Contrast as designated per enteric contrast guidelines 1 Each 0 11/30/2021 12/01/2021 ActiveStart: 11-30-2021 End: 38-24-9287tfcyojj contrast (will be provided with radiology test) For CT PELVIS W IVCON order Administer, As Directed One Time Only, via Oral, Rectal, both Oral and Rectal, Enteric Tube, Stoma or Indwelling Catheter, Enteric Contrast as designated per enteric contrast guidelines 1 Each 0 11/30/2021 12/01/2021 ActiveStart: 10-11-2021 End: 05-19-2665pahjnra contrast (will be provided with radiology test) For CT ABD/PEL W IVCON Routine order Administer, As Directed One Time Only, via Oral, Rectal, both Oral and Rectal, Enteric Tube, Stoma or Indwelling Catheter, Enteric Contrast as designated per enteric contrast guidelines 1 Each 0 10/11/2021 10/12/2021 ActiveComment on above:For CT ABD/PEL W IVCON Routine order Administer, As Directed One Time Only, via Oral, Rectal, both Oral and Rectal, Enteric Tube, Stoma or Indwelling Catheter, Enteric Contrast as designated per enteric contrast guidelinesFor CT PELVIS W IVCON order Administer, As Directed One Time Only, via Oral, Rectal, both Oral and Rectal, Enteric Tube, Stoma or Indwelling Catheter, Enteric Contrast as designated per enteric contrast guidelinesFamotidine (13 sources)Histamine-2 Receptor AntagonistFAMOTIDINE PO Take by mouth. Active Glucagon 3 MG/DOSE (16 sources)Glucagon 3 MG/DOSE as directed Nasally Activeglucose 0.4 mg/mg oral gel (20 sources)dextrose 40 % gel Take 15 g by mouth as needed. Activehydrocortisone 25 mg/ml topical cream (7 sources)CorticosteroidStart: 46-92-5168Yvbapzqztqojej 2.5 % cream with perineal applicator Active 1 APPLIC CO 2-4 TIMES PER DAY as needed for hemorrhoids 12 02June 20, 2024 1:00am Complies with drug therapyhydrophilic wound dressing (TRIAD) PSTE external paste (1 source)Start: 86-60-2982tmaaapnxdej wound dressing (TRIAD) PSTE external paste Apply externally 2 times daily. 0 06/26/2023ctiveInsulin Aspart U-100 100 unit/mL solution (8 sources)Start: 42-60-4497Psufras Aspart U-100 100 unit/mL solution Active 0 .ROUTE .COMPLEX March 11, 2024 9:39am USE IN INSULIN PUMP DAILYStart: 15-50-6635Sqjwvsb Aspart U-100 100 unit/mL solution Active 0 .ROUTE .COMPLEX March 11, 2024 8:39am USE IN INSULIN PUMP DAILY3 ml insulin glargine 100 unt/ml pen injector (20 sources)Insulin AnalogStart: 88-52-6252eliexkw glargine (LANTUS SOLOSTAR/BASAGLAR KWIKPEN) 100 UNIT/ML pen Inject 30 Units under the skin at bedtime. Keep on hand for emergency use 30 mL 07/12/2023 ActiveStart: 07-10-2023 5 Units, Subcutaneous, Once, 1 dose, On Sun07/10/23 at 1400Start: 07-09-2023 End: 23-88-7227hgiybh 25 [IU] by subcutaneous injection twice daily25 Units, Subcutaneous, 2 times daily, First dose (after last modification) on Sun07/09/23 at 0900,Until DiscontinuedStart: 07-05-2023 End: 75-21-4859wvofks 20 [IU] by subcutaneous injection twice daily20 Units, Subcutaneous, 2 times daily, First dose (after last modification) on Sun07/05/23 at 2100,Until DiscontinuedStart: 07-03-2023 End: 46-58-0617deyncf 25 [IU] by subcutaneous injection twice daily25 Units, Subcutaneous, 2 times daily, First dose (after last modification) on Sun07/03/23 at 2100,Until DiscontinuedStart: 07-01-2023 End: 22-62-5391qckvxf 30 [IU] by subcutaneous injection twice daily30 Units, Subcutaneous, 2 times daily, First dose (after last modification) on Sun07/01/23 at 2100,Until DiscontinuedStart: 06-30-2023 End: 70-84-4384faqquv 35 [IU] by subcutaneous injection twice daily35 Units, Subcutaneous, 2 times daily, First dose (after last modification) on Sun06/30/23 at 2100,Until DiscontinuedStart: 06-29-2023 End: 98-10-7546qlaktx 30 [IU] by subcutaneous injection twice daily30 Units, Subcutaneous, 2 times daily, First dose (after last modification) on Sun06/29/23 at 2100,Until DiscontinuedStart: 06-28-2023 End: 21-66-2770wkpzhc 20 [IU] by subcutaneous injection twice daily20 Units, Subcutaneous, 2 times daily, First dose (after last modification) on Sun06/28/23 at 1130,Until DiscontinuedStart: 06-27-2023 End: 34-09-1059vqgiye 4 [IU] by subcutaneous injection at bedtime4 Units, Subcutaneous, AT BEDTIME, First dose (after last modification) on Sun06/27/23 at 2200, Until DiscontinuedStart: 06-26-2023 End: 78-97-6954oqsxzr 30 [IU] by subcutaneous injection once daily in the zwvzyvw09 Units, Subcutaneous, EVERY MORNING, First dose (after last modification) on Sun07/11/23 at 0900,Until DiscontinuedStart: 79-36-3240lyrsqr 9 [IU] by subcutaneous injection at bedtimeinsulin glargine (LANTUS SOLOSTAR/BASAGLAR KWIKPEN) 100 UNIT/ML pen Inject 9 Units under the skin at bedtime. 15 mL 5 06/26/2023 ActiveStart: 08-08-2022 End: 52-85-0918Lftnmcj Glargine (Lantus Solostar U-100 Insulin) 100 unit/mL (3 mL) insulin pen Discontinued 18 UNIT SUBCUT Bedtime August 08, 2022 12:00am July 16, 2023 2:04pmStart: 07-20-2022 End: 36-75-1063zpvifv 18 [IU] by subcutaneous injection once daily at bedtime insulin glargine 100 unit/mL (3 mL) Inject 18 Units subcutaneously daily at bedtime. 6 mL 07/20/2022 01/15/2023 DiscontinuedStart: 07-20-2022 End: 99-45-8301wfzlxc 18 [IU] by subcutaneous injection once daily at bedtime insulin glargine 100 unit/mL (3 mL) Inject 18 Units subcutaneously daily at bedtime. 6 mL 0 07/20/2022 01/15/2023 DiscontinuedStart: 06-15-2022 End: 89-22-4423woqgftc glargine (LANTUS SOLOSTAR, BASAGLAR KWIKPEN) 100 unit/mL (3 mL) Inject 17 Units subcutaneously every morning. 15 mL 0 06/15/2022 07/20/2022 DiscontinuedStart: 01-14-2022 End: 35-40-4982hoeobq 25 [IU] by subcutaneous injection once daily in the morninginsulin glargine (LANTUS) 100 unit/mL injection Inject 25 Units subcutaneously every morning. 10 mL0 01/14/2022 ActiveStart: 80-73-8706mxamsf 15 [IU] by subcutaneous injection every twelve hours, then inject 100 [IU] by subcutaneous injectionLantus SoloStar 100 UNIT/ML Subcutaneous Solution Pen- injector INJECT, subcutaneously, 15 UNITS every 12 hours Quantity: 3 Refills: 5 Kimberlyn PA-C, Nayely Start : 18-Feb-2019 Active 3 ML PenStart: 82-23-8503ctjvbl 14 [IU] by subcutaneous injection every twelve hours, then inject 100 [IU] by subcutaneous injectionBasaglar KwikPen 100 UNIT/ML Subcutaneous Solution Pen- injector please inject 14 units every 12 hours Quantity: 3 Refills: 5 Kimberlyn PA-C Nayely Start : 18-Feb-2019 Active 3 ML PenComment on above:Inject 25 Units subcutaneously every morning.Inject 17 Units subcutaneously every morning. Inject 18 Units subcutaneously daily at bedtime.insulin aspart, human 100 unt/ml injectable solution (20 sources)Insulin AnalogStart: 74-78-2348Dqrfwfb Aspart U-100 100 unit/mL solution Active 0 .ROUTE .COMPLEX March 11, 2024 9:39am USE IN INSULIN PUMP DAILY Complies with drug therapyStart: 70-70-5613xderiul aspart U-100 (NOVOLOG) 100 unit/mL Use via insulin pump Max daily dose 100 units, DX: E10.65 10/20/2023 ActiveStart: 04-30-2021 End: 54-98-1069Qzsdzwz Aspart U-100 (Novolog U-100 Insulin Aspart) 100 unit/mL solution Discontinued 0 .ROUTE .COMPLEX April 30, 2021 1:00am March 11, 2024 9:39am patient has insulin pumpStart: 12-06-2020 End: 91-39-2523AIEHYQL U-100 INSULIN ASPART 100 unit/mL 12/06/2020 01/14/2022 DiscontinuedStart: 53-40-3200PyylUJX 100 UNIT/ML Subcutaneous Solution USE DIRECTED IN INSULIN PUMP. USE UP TO A MAXIMUM OF 70 UNITS DAILY Quantity: 60 Refills: 3 Ordered: 01-Feb-2021 Kimberlyn CRISTINA-CNayely Start : 30-Sep-2020 ActiveStart: 88-97-5414ybsoue 70 [IU] by subcutaneous injection onceNovoLOG 100 UNIT/ML Subcutaneous Solution USE DIRECTED PER PUMP, UP TO 70 UNITS A DAY Quantity: 6 Refills: 3 Ordered: 27-Apr-2020 Kimberlyn KATJANayely Start : 29-Apr-2019 ActiveStart: 19-96-3558wxgiwi 50 [IU] by subcutaneous injection once NovoLOG 100 UNIT/ML 50 units per pump Subcutaneous qday May, Not-Taking NovoLOG 100 UNIT/ML Use in insulin pump daily Subcutaneous Continuous for 30 days ActiveNovoLOG 100 UNIT/ML as directed Injection ActiveComment on above: Inject 8 Units subcutaneously every 4 hours. [...] the insulin regimen in the previous 24 hours.isavuconazonium sulfate 186 mg oral capsule (3 sources)Start: 12-12-2024 End: 89-60-8933ddjmubzbwdhyfjg sulfate (CRESEMBA) 186 mg capsule Take 2 capsules by mouth as directed. Take two (2) capsules by mouth every 8 hours for 6 doses, then two (2) capsules per day. 180 capsule 2 12/12/2024 03/12/2025 Activeiv contrast (will be provided with radiology test) (20 sources)Start: 09-12-2024 End: 69-02-2805zj contrast (will be provided with radiology test) [...] the CT contrast administration guidelines link. 1 each 09/12/2024 09/13/2024 ActiveStart: 09-12-2024 End: 26-86-1494pe contrast (will be provided with radiology test) CT Chest W - Inject, intravenously, once for 1 dose.No IV access, insert saline lock prior to the beginning of sedation, infusion, injection of imaging exam. Discontinue saline lock post exam. If Pt. has a central line or IVAD, may access for adminis tration according to line specific nursing protocol. Once exam is complete flush line and de-accessaccording to line specific nursing protocol in theCT contrast administration guidelines link. 1 each 09/12/2024 09/13/2024 ActiveStart: 09-18-2023 End: 79-79-7174pxkrms 1 dose intravenously onceiv contrast (will be provided with radiology test) [...] contrast administration guidelines link 1 Each 0 09/18/2023 09/19/2023 ExpiredStart: 09-18-2023 End: 22-29-4669kt contrast (will be provided with radiology test) MRI CSP Inject, intravenously, [...] contrast administration guidelines link. 1 Each 0 09/18/2023 09/19/2023 ExpiredStart: 09-18-2023 End: 14-07-6498rpvqjo 1 dose intravenously onceiv contrast (will be provided with radiology test) [...] contrast administration guidelines link. 1 Each 0 09/18/2023 09/19/2023 ExpiredStart: 09-18-2023 End: 94-85-3512gi contrast (will be provided with radiology test) MRI LSP Inject, intravenously, [...] contrast administration guidelines link. 1 Each 0 09/18/2023 09/19/2023 ExpiredStart: 09-18-2023 End: 87-03-5411qdrlbh 1 dose intravenously onceiv contrast (will be provided with radiology test) [...] contrast administration guidelines link 1 Each 0 09/18/2023 09/19/2023 ActiveStart: 09-18-2023 End: 38-42-2390ze contrast (will be provided with radiology test) MRI CSP Inject, intravenously, [...] contrast administration guidelines link. 1 Each 0 09/18/2023 09/19/2023 ActiveStart: 09-18-2023 End: 04-34-0356bvwuhw 1 dose intravenously onceiv contrast (will be provided with radiology test) [...] contrast administration guidelines link. 1 Each 0 09/18/2023 09/19/2023 ActiveStart: 09-18-2023 End: 11-42-5469tz contrast (will be provided with radiology test) MRI LSP Inject, intravenously, [...] contrast administration guidelines link. 1 Each 0 09/18/2023 09/19/2023 ActiveStart: 09-12-2023 End: 07-57-7383sw contrast (will be provided with radiology test) [...] contrast administration guidelines link. 1 Each 0 09/12/2023 09/13/2023 ExpiredStart: 09-12-2023 End: 31-32-2321fr contrast (will be provided with radiology test) Indications: History of bladder cancer CT Chest W -Inject, intravenously, once for 1 dose.No IV access, insert saline lock prior to the beginning ofsedation, infusion, injection of imaging exam. Discontinue saline lock post exam. If Pt. has a centr al line or IVAD, may access for administration according to line specific nursing protocol. Once exam is complete flush line and de-access according to line specific nursing protocol in the CT contrast administration guidelines link. 1 Each 0 09/12/2023 09/13/2023 ExpiredStart: 09-12-2023 End: 08-53-0050cr contrast (will be provided with radiology test) [...] contrast administration guidelines link. 1 Each 0 09/12/2023 09/13/2023 ActiveStart: 09-12-2023 End: 06-99-9514pq contrast (will be provided with radiology test) Indications: History of bladder cancer CT Chest W -Inject, intravenously, once for 1 dose.No IV access, insert saline lock prior to the beginning ofsedation, infusion, injection of imaging exam. Discontinue saline lock post exam. If Pt. has a centr al line or IVAD, may access for administration according to line specific nursing protocol. Once exam is complete flush line and de-access according to line specific nursing protocol in the CT contrast administration guidelines link. 1 Each 0 09/12/2023 09/13/2023 ActiveStart: 09-06-2023 End: 75-36-9617bwjxsk 1 dose intravenously onceiv contrast (will be provided with radiology test) Indications: Communicating hydrocephalus (HCC) MRI Brain Localization Inject, intravenously, once for 1 dose.No IV [...] contrast administration guidelines link 1 Each 0 09/06/2023 09/07/2023 ActiveStart: 01-09-2023 End: 85-26-0482fs contrast (will be provided with radiology test) [...] guidelines link. 1 Each 0 01/09/2023 01/10/2023 ActiveStart: 01-09-2023 End: 38-13-2363wm contrast (will be provided with radiology test) Indications: History of bladder cancer CT Chest W -Inject, intravenously, once for 1 dose.No IV access, insert saline lock prior to the beginning ofsedation, infusion, injection of imaging exam. Discontinue saline lock post exam. If Pt. has a centr al line or IVAD, may access for administration according to line specific nursing protocol. Once exam is complete flush line and de-access according to line specific nursing protocol in the CT contrast administration guidelines link. 1 Each 0 01/09/2023 01/10/2023 ActiveStart: 07-19-2022 End: 69-43-8154wgkagb 1 dose intravenously onceiv contrast (will be provided with radiology test) [...] guidelines link 1 Each 0 07/19/2022 07/20/2022 ActiveStart: 07-19-2022 End: 53-64-4488ch contrast (will be provided with radiology test) MRI CSP Inject, intravenously, [...] guidelines link. 1 Each 0 07/19/2022 07/20/2022 ActiveStart: 07-19-2022 End: 83-97-8856ny contrast (will be provided with radiology test) MRI LSP Inject, intravenously, [...] guidelines link. 1 Each 0 07/19/2022 07/20/2022 ActiveStart: 07-19-2022 End: 61-57-6566pkqkvz 1 dose intravenously onceiv contrast (will be provided with radiology test) [...] guidelines link. 1 Each 0 07/19/2022 07/20/2022 ActiveStart: 05-02-2022 End: 89-05-0659se contrast (will be provided with radiology test) [...] guidelines link. 1 Each 0 05/02/2022 05/03/2022 ActiveStart: 05-02-2022 End: 62-99-9210fo contrast (will be provided with radiology test) Indications: History of bladder cancer CT Chest W -Inject, intravenously, once for 1 dose.No IV access, insert saline lock prior to the beginning ofsedation, infusion, injection of imaging exam. Discontinue saline lock post exam. If Pt. has a centr al line or IVAD, may access for administration according to line specific nursing protocol. Once exam is complete flush line and de-access according to line specific nursing protocol in the CT contrast administration guidelines link. 1 Each 0 05/02/2022 05/03/2022 ActiveStart: 01-31-2022 End: 99-25-7418oc contrast (will be provided with radiology test) Indications: Malignant neoplasm of urinary bladder, unspecified site (HCC) CT Urogram WO/W Inject, intravenously, once for 1 dose.No IV access, insert saline lock prior to the beginning of sedation, infusion, injection of imaging exam. Discontinue s randi lock post exam. If Pt. has a central line or IVAD, may access for administration according toline specific nursing protocol. Once exam is complete flush line and de-access according to line specific nursing protocol in the CT contrast administration guidelines link. 1 Each 0 01/31/2022 02/01/2022 Active Start: 11-30-2021 End: 62-62-6746mk contrast (will be provided with radiology test) Indications: Pelvic and perineal pain CT PELVIS W -Inject, intravenously, once for 1 dose.No IV access, insert saline lock prior to the beginning ofsedation, infusion, injection of imaging exam. Discontinue saline lock post exam. If Pt. has a centr al line or IVAD, may access for administration according to line specific nursing protocol. Once exam is complete flush line and de-access according to line specific nursing protocol in the CT contrast administration guidelines link. 1 Each 0 11/30/2021 12/01/2021 ActiveStart: 11-30-2021 End: 15-28-9108nm contrast (will be provided with radiology test) CT PELVIS W - Inject, intravenously, once for 1 dose.No IV access, insert saline lock prior to the beginning of sedation, infusion, injection of imaging exam. Discontinue saline lock post exam. If Pt. has a central line or IVAD, may access for admini stration according to line specific nursing protocol. Once exam is complete flush line and de-access according to line specific nursing protocol in the CT contrast administration guidelines link. 1 Each 0 11/30/2021 12/01/2021 Active Start: 11-30-2021 End: 26-21-4152ux contrast (will be provided with radiology test) Indications: Malignant neoplasm of urinary bladder, unspecified site (HCC) CT Urogram WO/W Inject, intravenously, once for 1 dose.No IV access, insert saline lock prior to the beginning of sedation, infusion, injection of imaging exam. Discontinue s randi lock post exam. If Pt. has a central line or IVAD, may access for administration according toline specific nursing protocol. Once exam is complete flush line and de-access according to line specific nursing protocol in the CT contrast administration guidelines link. 1 Each 0 11/30/2021 12/01/2021 Active Start: 10-11-2021 End: 35-45-8421lz contrast (will be provided with radiology test) CT ABD/PEL - Inject, intravenously, once for 1 dose.No IV access, insert saline lock prior to the beginning of sedation, infusion, injection of imaging exam. Discontinue saline lock post exam. If Pt. has a central line or IVAD, may access for adminis tration according to line specific nursing protocol. Once exam is complete flush line and de-accessaccording to line specific nursing protocol in the CT contrast administration guidelines link. 1 Each 0 10/11/2021 10/12/2021 Active Comment on above:CT ABD/PEL -Inject, intravenously, once for 1 dose.No IV access, insert saline lock prior to the beginning of sedation, infusion, injection of imaging exam. Discontinue saline lock post exam. If Pt. has a central line or IVAD, may access for administration according to line specific nursing protocol. Once exam is complete flush line and de-access according to line specific nursing protocol in theCT contrast administration guidelines link. CT PELVIS W -Inject, intravenously, once for 1 dose.No IV access, insert saline lock prior to the beginning of sedation, infusion, injection of imaging exam. Discontinue saline lock post exam. If Pt.has a central line or IVAD, may access for administration according to line specific nursing protocol. Once exam is complete flush line and de-access according to line specific nursing protocol in the CT contrast administration guidelines link.CT Urogram WO/W Inject, intravenously, once for 1 dose.No IV access, insert saline lock prior to the beginning of sedation, infusion, injection of imaging exam. Discontinue saline lock post exam. If Pt. has a central line or IVAD, may access for administration according to line specific nursing protocol. Once exam is complete flush line and de-access according to line specific nursing protocol inthe CT contrast administration guidelines link.CT Chest W -Inject, intravenously, once for 1 dose.No IV access, insert saline lock prior to the beginning of sedation, infusion, injection of imaging exam. Discontinue saline lock post exam. If Pt. h as a central line or IVAD, may access for administration according to line specific nursing protocol. Once exam is complete flush line and de-access according to line specific nursing protocol in theCT contrast administration guidelines link.MRI Brain Inject, intravenously, once for 1 dose.No IV access, insert saline lock prior to beginning of sedation, infusion, injection of imaging exam.Discontinue saline lock post exam. If Pt. has a central line or IVAD, may access for administration according to line specific nursing protocol.Once exam is complete flush line and de-access according to line specific nursing protocol in the MR contrast administration guidelines linkMRI CSP Inject, intravenously, once for 1 dose. No IV access, insert saline lock prior to the beginning of sedation, infusion, injection of imaging exam. Discontinue saline lock post exam. If Pt. hasa central line or IVAD, may access for administration according to line specific nursing protocol. Once exam is complete flush line and de-access according to line specific nursing protocol in the MRcontrast administration guidelines link.MRI LSP Inject, intravenously, once for 1 dose. No IV access, insert saline lock prior to the beginning of sedation, infusion, injection of imaging exam. Discontinue saline lock post exam. If Pt. hasa central line or IVAD, may access for administration according to line specific nursing protocol. Once exam is complete flush line and de- access according to line specific nursing protocol in the MRcontrast administration guidelines link.MRI TSP Inject, intravenously, once for 1 dose. No IV access, insert saline lock prior to the beginning of sedation, infusion, injection of imaging exam. Discontinue saline lock post exam. If Pt. hasa central line or IVAD, may access for administration according to line specific nursing protocol. Once exam is complete flush line and de-access according to line specific nursing protocol in the MRcontrast administration guidelines link. Lactobacillus (16 sources)Start: 81-79-0542kdqs 1 capsule by mouth once dailyLACTOBACILLUS ORAL Take 1 Capsule by mouth daily. 06/15/2022 ActiveStart: 11-57-6624kvbl 1 capsule by mouth once dailyLACTOBACILLUS ORAL Take 1 Capsule by mouth daily. 0 06/15/2022 ActiveStart: 87-75-4697dfsb 1 capsule by mouth once daily LACTOBACILLUS ORAL Take 1 Capsule by mouth daily. 0 06/15/2022 Suspended lactobacillus acidophilus [id number] unt oral capsule (3 sources)Start: 44-00-8997oetq 1 capsule by mouth once dailyLactobacillus Acidophilus capsule Active 10 MG PO Daily November 19, 2024 12:00am Complies with drugtherapyStart: 07-99-3491dwpp 1 capsule by mouth once dailyLactobacillus Acidophilus capsule Active 10 MG PO Daily November 19, 2024 12:00am Complies with drugtherapylisinopril 40 mg oral tablet (20 sources)Angiotensin Converting Enzyme InhibitorStart: 01-20-2025 End: 13-35-6735rdnt 1 tablet by mouth once dailyStart: 08-28-2024 End: 35-58-0599slme 1 tablet by mouth once dailylisinopril (ZESTRIL) 5 mg tablet Take 1 tablet by mouth once daily. 30 tablet 08/28/2024 ActiveStart: 04-04-2024 End: 98-29-3797srgo 1 tablet by mouth once dailyLisinopril 40 mg tablet Discontinued 40 MG PO Daily 90 90 April 04, 2024 1:50pm November 19, 2024 10:29amStart: 10-21-2023 End: 82-27-1086bisj 1 tablet by mouth once dailylisinopril (ZESTRIL) 20 mg tablet 1 tablet by ORAL/FEEDING TUBE route once daily. 10/21/2023 12/04/2023 Discontinued (Other)Start: 07-16-2023 End: 69-58-1851koto 1 tablet by mouth once dailyLisinopril 20 mg tablet Discontinued 20 MG PO Daily July 16, 2023 12:00am April 04, 2024 11:05am Start: 03-21-2023 End: 45-22-8073eklb 20 mg by mouth once daily20 mg, Oral, DAILY, First dose on Sun07/06/23 at 1100, Until Ezibeiwsbbki00 hr metoprolol succinate 100 mg extended release oral tablet (20 sources)beta-Adrenergic BlockerStart: 01-12-1180btfs 2 tablets by mouth twice dailyMetoprolol Succinate 100 mg tablet extended release 24 hr Active 50 MG PO Twice daily November 19, 2024 10:29am Complies with drug therapyStart: 11-04-2024 End: 10-85-7105dqqy 1 tablet by mouth twice dailyMetoprolol Succinate 100 mg tablet extended release 24 hr Discontinued 0 .ROUTE .COMPLEX 180 November 04, 2024 8:43pm November 19, 2024 10:31am Take 1 tablet by mouth twice dailyStart: 18-51-4347fzgd 0.5 tablet by mouth twice dailymetoprolol succinate ER (TOPROL XL) 100 mg Take 0.5 tablets by mouth two times a day. 90 tablet 08/28/2024 ActiveStart: 28-59-9694uwhz 100 mg by mouth once [id number] mg, Oral, DAILY, First dose (after last modification) on Sun07/01/23 at 0900, Until DiscontinuedStart: 06-29-2023 End: 33-45-1201dxps 50 mg by mouth once daily50 mg, Oral, DAILY, First dose on Sun06/29/23 at 1200, Until DiscontinuedStart: 06-28-2023 End: 24-89-9614ywzu 5 mg intravenously every four hours5 mg, Intravenous Push, EVERY 4 HOURS, First dose on Sun06/28/23 at 0000, Until DiscontinuedStart: 10-21-2022 End: 57-81-7421skvs 1 tablet by mouth every twelve hours in the morning, then take 6 tablets by mouth in the eveningmetoprolol succinate ER (TOPROL XL) 100 mg Take 1 tablet by mouth every 12 hours at 6 am and 6 pm. 10/20/2023 Suspended Start: 07-28-2022 End: 63-28-0031mktq 1 tablet by mouth twice dailymetoprolol tartrate, short acting, (LOPRESSOR) 50 mg tablet Take 1 tablet by mouth two times a day. 07/28/2022 12/04/2023 Discontinued (Duplicate Entry)Start: 07-20-2022 End: 45-94-9778vwek 1 tablet by mouth every twelve hoursmetoprolol tartrate, short acting, (LOPRESSOR) 50 mg tablet Take 1 tablet by mouth every 12 hours. 60 tablet 07/20/2022 01/15/2023 DiscontinuedStart: 02-18-2019 End: 61-14-0146hmgo 1 tablet by mouth twice dailyMetoprolol Succinate (Toprol Xl) 100 mg Tablet Extended Release 24 Hr Discontinued 100 MG PO Twice daily April 30, 2021 1:00am April 03, 2024 9:53pmStart: 02-18-2019 End: 17-18-2591wvol 100 mg by mouth every twelve hoursmetoprolol succinate ER (TOPROL XL) 100 mg Take 100 mg by mouth q 12 HR. 02/18/2019 06/14/2022 Disco ntinuedStart: 04-25-2005 End: 07-07-9965NTAKCE XL 50 MG 24 HR TAB Take one(1) tablet daily. 0 04/25/2005 04/23/2021 DiscontinuedComment on above:Take one(1) tablet daily.Take 100 mg by mouth q 12 HR.Take 1 tablet by mouth q 12 HR.Take 1 tablet by mouth every 12 hours.Take 1 tablet by mouth every 12 hours 6am/6pm.naloxone hydrochloride 40 mg/ml nasal spray (17 sources)Opioid AntagonistStart: 57-89-6974emrcflpe 4 mg/0.1 mL nasal liquid Use 1 [place] in one nostril (alternate sides) as needed for Drug Overdose (and call 911). every 2-3 min, until assistance arrives. 2 Each 3 07/12/2023 Active Start: 74-66-6647Wnhwx: .4 mg, Intravenous Push, PRN, Starting on Sun07/10/23 at 1201, Until Discontinued, Respiratory Rate Less Than 8 for adults and less than 12 for Peds or for suspected overdose, PACU Nowofloxacin 3 mg/ml ophthalmic solution (1 source)Quinolone AntimicrobialStart: 63-31-3017txxg 1 drop(s) into the eye(s) four times dailyofloxacin (OCUFLOX) 0.3 % ophthalmic solution One drop in the OPERATIVE EYE only four times a day starting the day before surgery 10 mL 1 12/23/2024 Activeondansetron 4 mg oral tablet (20 sources)Serotonin-3 Receptor AntagonistStart: 47-52-4071tpap 1 tablet by mouth every six hoursOndansetron Hcl 4 mg tablet Active 4 MG PO Every 6 hours November 19, 2024 12:00am Complies with drug therapyStart: 25-20-7751kjlv 1 tablet by mouth every six hours as neededondansetron orally disintegrating (ZOFRAN ODT) 4 mg disintegrating tablet Take 4 mg by mouth every 6 hours as needed. 11/07/2023 ActiveStart: 50-33-9213dpnd 4 mg intravenously every six hours as needed4 mg, Intravenous Push, EVERY 6 HOURS PRN, Starting on Sun06/29/23 at 1959, Until DiscontinuedStart: 06-26-2023 End: 97-10-8070Dumtr: 06-25-2023 End: 84-49-7810ywki 4 mg intravenously every six hours as needed for nausea4 mg, Intravenous Push, EVERY 6 HOURS PRN, Starting on Sun06/25/23 at 0415, Until Sun06/25/23 at 1823, Nausea, VomitingStart: 15-32-3728oyjj 1 tablet by mouth every six hours as neededOndansetron 4 MG 1 tablet on the tongue and allow to dissolve Orally every 6 hours as needed for 30days May, ActiveStart: 01-06-2022 take 1 tablet by mouth every eight hours as neededondansetron (ZOFRAN) 4 mg tablet Take 1 tablet by mouth every 8 hours as needed for nausea/vomiting. 20 tablet 0 01/06/2022 ActiveStart: 05-05-2021 End: 41-14-1711mhmc 1 tablet by mouth every eight hoursOndansetron Hcl 8 mg tablet Discontinued 8 MG PO Q8H 15 May 05, 2021 1:00am June 10, 2:30pmStart: 04-30-2021 End: 33-42-2747oitp 1 tablet by mouth every eight hoursOndansetron 8 mg tablet,disintegrating Discontinued 8 MG PO Every 8 hours April 30, 2021 1:00amApril 2022 1:29pmComment on above:Take 1 tablet by mouth every 8 hours as needed for nausea/vomiting.oxyCODONE hydrochloride 5 mg oral tablet (20 sources)Opioid AgonistStart: 11-19-2023 End: 55-63-2672bnwm 1 tablet by mouth every four hours as neededoxyCODONE IR (ROXICODONE) 5 mg immediate release tablet Indications: Obstructive hydrocephalus (HCC) Take 1-2 tablets by mouth every 4 hours as needed for pain for up to 7 days. 42 tablet 12/10/2023 12/17/2023 ActiveStart: 11-07-2023 End: 67-17-1687ojyy 1 tablet by mouth every six hours as needed for pain and painoxyCODONE IR (ROXICODONE) 5 mg immediate release tablet Indications: Pain Take 1 tablet by mouth every 6 hours as needed for up to 7 days. 28 tablet 0 11/07/2023 11/14/2023 ActiveStart: 10-20-2023 End: 13-49-3118wuix 5-10 mg enteral route every six hours as neededoxyCODONE IR (ROXICODONE) 5 mg immediate release tablet 1-2 tablets by ORAL/FEEDING TUBE route every 6 hours as needed for up to 5 days. 0 10/20/2023 10/25/2023 Active Start: 07-12-2023 End: 72-80-7793ikpJVCXFE 5 MG immediate release tablet 1 Tablet by NG Tube route every 6 hours as needed for up to7 days. 28 Tablet 0 07/12/2023 07/19/2023 ActiveStart: 45 mg, NG Tube, EVERY 6 HOURS PRN, Starting on Sun07/03/23 at 1200, Until Discontinued, Severe Pain (pain score 7,8,9,10)Start: 07-02-2023 End: .5 mg, NG Tube, EVERY 4 HOURS PRN, Starting on Sun07/02/23 at 0817, Until Sun07/03/23 at 1146, Moderate Pain (pain score 4,5,6)Start: 06-27-2023 End: 54-87-011742 mg, NG Tube, EVERY 4 HOURS PRN, Starting on Sun06/27/23 at 2055, Until Sun07/02/23 at 0818, Severe Pain (pain score 7,8,9,10)Start: 06-27-2023 End: mg, NG Tube, EVERY 4 HOURS PRN, Starting on Sun07/02/23 at 0818, Until Sun07/03/23 at 1146, Severe Pain (pain score 7,8,9,10)Start: 99-18-4245fzfv 1 tablet by mouth every eight hours as needed for painoxyCODONE IR (ROXICODONE) 5 mg immediate release tablet Indications: Post-op pain Take 1 tablet by mouth every 8 hours as needed for pain. 10 tablet 0 01/06/2022 Active take 1 capsule by mouth every four hours as neededoxyCODONE ir (OXYIR) 5 mg capsule Take 5 mg by mouth every 4 hours as needed for pain. Suspendedtake 1 tablet by mouth every six hours as neededoxyCODONE HCl 5 MG 1 tablet as needed Orally, feeding tube every 6 hrs as needed for up to 7 days ActiveComment on above:Take 1 tablet by mouth every 8 hours as needed for pain.phenol in water, 6%,, ccf, (2 sources)Start: 04-15-2024 End: 69-25-8668yyfsgn in water, 6%,, ccf, 10 mL by perineural injection route one time only for 1 dose. 10 mL 04/15/2024 04/16/2024 ActiveStart: 12-06-2023 End: 31-90-3589oecqaq in water, 6%,, ccf, Use 10 mL by perineural injection route one time only for 1 dose. 10 mL 12/06/2023 12/06/2023 Activephenylephrine hydrochloride 25 mg/ml ophthalmic solution (1 source)alpha-1 Adrenergic AgonistStart: 12-23-2024 End: 37-13-6164QGWPUItvtvtcw 2.5 % 1 drop (AK-DILATE, LUIS-SYNEPHRINE) polyethylene glycol 1450 MW, NF, BASE A, powd (13 sources)polyethylene glycol 1450 MW, NF, BASE A, powd ActivePosaconazole (Noxafil) 300 mg susp,delayed release for recon (12 sources)Start: 10-82-1047jitv 300 mg by mouth once dailyPosaconazole (Noxafil) 300 mg susp,delayed release for recon Active 300 MG PO Daily July 1541:04pmStart: 60-03-3971gvyn 300 mg by mouth once dailyPosaconazole (Noxafil) 300 mg susp,delayed release for recon Active 300 MG PO Daily July 1542:04pmprednisoLONE 5 mg oral tablet (3 sources)Corticosteroid End: 92-71-1291tkso 1 tablet by mouth once dailyprednisoLONE 5 mg tab Take 5 mg by mouth once daily. For 5 days as per list from facility 01/18/2024 Active Probiotic Blend (16 sources)Probiotic Blend Activesennosides, chcf 8.6 mg oral tablet (20 sources)Start: 07-02-2023 End: 56-53-0530osvv 1 tablet by mouth at bedtime as needed for constipationsenna (SENOKOT) 8.6 MG tablet Take 1 Tablet by mouth at bedtime as needed for Constipation for up to 14 days. 14 Tablet 0 07/12/2023 07/26/2023 ActiveStart: 08-08-2022 End: 08-96-2843pvah 1 tablet by mouth once daily as needed for constipation Sennosides (Senokot) 8.6 mg Tablet Discontinued 8.6 MG PO Daily as needed for Constipation August 08, 2022 12:00am July 16, 2023 2:04pmStart: 07-20-2022 End: 68-20-1850fjhg 1 tablet by mouth twice dailysenna (SENOKOT) 8.6 mg tab Take 1 tablet by mouth twice daily. 0 07/20/2022 08/19/2022 ExpiredComment on above: Take 1 tablet by mouth twice daily.1000 ml sodium chloride 9 mg/ml injection (20 sources)Start: 09-12-2024 End: .9 % sodium chloride (NACL 0.9%) infusion Administer at rate defined per CT contrast administration specifications. To be provided with radiology test. 150 mL 09/12/2024 09/12/2024 ActiveStart: 09-12-2023 End: .9 % sodium chloride (NACL 0.9%) infusion Indications: History of bladder cancer Administer at rate defined per CT contrast administration specifications. To be provided with radiology test. 150 mL 0 09/12/2023 09/12/2023 ExpiredStart: 07-10-2023 End: 29-92-4170Seapwkibbha, at 75 mL/hr, CONTINUOUS, Starting on Sun07/10/23 at 0000, Until Sun07/10/23 at 1307Start: 01-09-2023 End: 90-02-6492ojjbls 1 dose intravenously once0.9 % sodium chloride (NACL 0.9%) infusion Indications: History of bladder cancer Inject 5-30 mL/hrintravenously one time only for 1 dose. Administer at rate defined per CT contrast administration specifications. To be provided with radiology test. 1 Each 0 01/09/2023 01/09/2023 ExpiredStart: 05-02-2022 End: 42-68-3780jeevwb 1 dose intravenously once0.9 % sodium chloride (NACL 0.9%) infusion Indications: History of bladder cancer Inject 5-30 mL/hrintravenously one time only for 1 dose. Administer at rate defined per CT contrast administration specifications. To be provided with radiology test. 1 Each 0 05/02/2022 05/02/2022 ExpiredStart: 01-31-2022 End: 83-63-2156jzgjdg 1 dose intravenously once0.9 % sodium chloride (NACL 0.9%) infusion Indications: Malignant neoplasm of urinary bladder, unspecified site (HCC) Inject 5-30 mL/hr intravenously one time only for 1 dose. Administer at rate defined per CT contrast administration specifications. To be provided with radiology test. 1 Each 0 01/31/2022 01/31/2022 ActiveStart: 01-06-2022 End: 61-48-4291ijmn 1 tablet by mouth three times dailysodium chloride 1 gram tab Take 1 tablet by mouth three times daily for 7 days. 21 tablet 0 01/06/2022 01/13/2022 ActiveStart: 11-30-2021 End: 87-48-9099qslpst 1 dose intravenously once0.9 % sodium chloride (NACL 0.9%) infusion Indications: Malignant neoplasm of urinary bladder, unspecified site (HCC) Inject 5-30 mL/hr intravenously one time only for 1 dose. Administer at rate defined per CT contrast administration specifications. To be provided with radiology test. 1 Each 0 11/30/2021 11/30/2021 ActiveStart: 05-31-2021 End: .9 % sodium chloride (NACL 0.9%) 0.9% solp Inject 1,000 mL intravenously two times a week. x 2 weeks 4 Bag 1 05/31/2021 01/04/2022 DiscontinuedComment on above:Inject 1,000 mL intravenously two times a week. x 2 weeksInject 5-30 mL/hr intravenously one time only for 1 dose. Administer at rate defined per CT contrast administration specifications. To be provided with radiology test.Take 1 tablet by mouth three times daily for 7 days.sulfacetamide sodium 100 mg/ml ophthalmic solution (6 sources)Sulfonamide AntibacterialStart: 72-14-2043lpyx 2 drop(s) into the eye(s) four times dailySulfacetamide Sodium 10 % 2 drops Ophthalmic qid for 7 days Jan, ActiveStart: 83-11-4412crqj 2 drop(s) into the eye(s) four times dailySulfacetamide Sodium 10 % 2 drops Ophthalmic qid for 7 days Jan, ActivetiZANidine 4 mg oral tablet (20 sources)Central alpha-2 Adrenergic AgonistStart: 07-12-2023 End: 10-98-8026clbl 1 tablet by mouth three times daily as neededtizanidine (ZANAFLEX) 4 MG tablet Take 1 Tablet by mouth 3 times daily as needed for up to 14 days.42 Tablet 0 07/12/2023 07/26/2023 ActiveStart: 05-05-2021 End: 30-35-9842swpy 1 tablet by mouth every eight hours as needed for pain Tizanidine 4 mg Tablet Discontinued 4 MG PO Q8H as needed for muscle pain/spasm May 05, 2021 1:00am June 06, 2021 4:51pmtropicamide 10 mg/ml ophthalmic solution (1 source)AnticholinergicStart: 12-23-2024 End: 50-33-0397xjrjbamzvne 1 % 1 drop (MYDRIACYL)vitamin b12 1 mg oral tablet (20 sources)Vitamin K68Clqys: 14-32-2963zwxjjgmgwwwyml (VITAMIN B-12) 1,000 mcg tab Take 1,000 mcg by mouth. 11/07/2023 ActiveWheelchair (W/C) unit (16 sources)Start: 60-97-8533Kkjflrkiti (W/C) unit Active 0 .Route 1 July 31, 2024 9:57am Nanostellar-2 Half-Power [facility] Code: [id number]: 07-31-2024 End: 04-58-3555Opujwocprz (W/C) unit Discontinued 0 .Route 1 July 31, 2024 9:55am July 31, 2024 9:57am S[place]ira Model HPS-2 Half-Power [facility] Code: [id number]: 07-31-2024 End: 01-32-9681Hdtjpvtoyq (W/C) unit Discontinued 0 .Route 1 July 31, 2024 9:53am July 31, 2024 9:55am Superstand Whllechair Model HPS-2 Half-Power [facility] Code: [id number]: 07-31-2024 End: 36-17-8934Ermyjqkyby (W/C) unit Discontinued 0 .Route 1 July 31, 2024 12:00am July 31, 2024 9:54am Superstand [employer] Model HPS-2 Half-Power [facility] Code: K0013 (1 source)Start: 07-12-2023 (1 source)Start: 07-12-2023 Completed/Discontinued Medications MedicationDrug Class(es)DatesSig (Normalized)Sig (Original)Accu-Chek Nadia In Vitro Solution (2 sources)Start: 90-19-2355Wqhq-Chek Nadia In Vitro Solution USE DIRECTED. Quantity: 1 Refills: 3 Omestella CRISTINA-C, Nayely Start : 21-Mar-2019 ActiveAccu-Chek Nadia Plus w/Device Kit (2 sources)Start: 17-50-2561Lzik-Chek Nadia Plus w/Device Kit USE DIRECTED. Quantity: 1 Refills: 0 Omoregie PA-C, Nayely Start : 21-Mar-2019 Active acetaminophen 325 mg / oxyCODONE hydrochloride 5 mg oral tablet (18 sources)Opioid AgonistStart: 05-05-2021 End: 39-44-7415luhr 1 tablet by mouth every six hours as needed for pain Oxycodone-Acetaminophen 5-325 mg Tablet Discontinued 1 TAB PO Q6H as needed for breakthrough pain, severe 20 May 05, 2021 August 08, 2022 1:29pm albuterol 0.83 mg/ml inhalation solution (20 sources)beta2-Adrenergic AgonistStart: .5 mg, Nebulization, EVERY 6 HOURS PRN, Starting on Sun06/29/23 at 1119, Until Discontinued, Shortness of Breath, WheezingStart: 04-25-2005 End: 50-16-6347WIBLBOWXJ 90 MCG/ACTUATION AEROSOL INHALER Use as directed four(4) times daily. 0 04/25/2005 06/15/2022 DiscontinuedComment on above:Use as directed four(4) times daily.2 ml amisulpride 2.5 mg/ml injection (1 source)Start: 07-10-2023 End: 53-68-0316jxsq 1 dose intravenously once10 mg, Intravenous Push, ONCE, 1 dose, On Sun07/10/23 at 0900, PACU Nowamitriptyline hydrochloride 10 mg oral tablet (12 sources)Tricyclic AntidepressantStart: 02-25-2024 End: 52-14-9211pfpk 1 tablet by mouth once daily at bedtimeAmitriptyline 10 mg tablet Discontinued 10 MG PO Daily at bedtime February 25, 2024 1:00am A ugust 2024 10:24amamLODIPine 2.5 mg oral tablet (20 sources)Dihydropyridine Calcium Channel Dianna End: 17-08-1796obOGIFZijc (NORVASC) 2.5 mg tablet Take by mouth once daily. 12/04/2023 Discontinued (Other)amoxicillin 875 mg / clavulanate 125 mg oral tablet (19 sources)Penicillin-class AntibacterialStart: 09-25-2023 End: 68-50-3823tqng 1 tablet by mouth every twelve hoursAmoxicillin-Pot Clavulanate 875-125 mg tablet Discontinued 1 TAB PO Every 12 hours 10 September 25, 2023 12:00am April 29, 2024 2:17pmStart: 75-01-6641tmkt 1 tablet by mouth every twelve hoursAmoxicillin-Pot Clavulanate 875-125 MG 1 tablet Orally every 12 hrs for 10 days Feb, ActiveStart: 10-31-2021 End: 24-08-8487zcho 1 tablet by mouth twice dailyamoxicillin-clavulanic acid (AUGMENTIN) 875-125 mg per tablet Take 1 tablet by mouth twice daily for 14 days. 28 tablet 0 10/31/2021 11/14/2021 ActiveComment on above:Take 1 tablet by mouth twice daily for 14 days.atorvastatin 10 mg oral tablet (8 sources)HMG-CoA Reductase InhibitorStart: 39-48-6914cklm 1 tablet by mouth every twenty-four hoursAtorvastatin Calcium 10 MG 1 tablet Orally Once a day May, Not-Takingbacitracin 0.5 unt/mg topical ointment (20 sources)Start: 08-08-2022 End: 93-92-9873Itkjacxjbv 500 unit/gram Ointment Discontinued 1 APPLIC TOPICAL Daily August 08, 2022 12:00am July 16, 2023 2:05pmStart: 07-20-2022 End: 90-09-4348gitpiccjhw 500 unit/gram ointment Apply to affected area twice daily. 28 g 07/20/2022 09/18/2022 End: 98-89-9513qxcxerqovk 500 unit/gram pack Apply 1 application to affected area every 24 hours. 0 10/07/2023 DiscontinuedBacitracin 500 UNIT/GM 1 application into the lower eyelid of affected eye Ophthalmic Once a day Active Comment on above:Apply to affected area twice daily.Baqsimi Two Pack 3 MG/DOSE Nasal Powder (1 source)Start: 29-33-7145Idwsrdk Two Pack 3 MG/DOSE Nasal Powder Please use as directed for emergent low hypoglycemia Quantity: 1 Refills: 3 Omestella HIGHTOWER, Nayely Start : 29-Apr-2019 Activeonabotulinumtoxina 100 unt injection (6 sources)Acetylcholine Release InhibitorStart: 07-22-2024 End: 43-46-0279onpzkybnfpwv toxin type A 350 Units injection (BOTOX)Start: 07-22-2024 End: 75-92-7572590 Units, INTRAMUSCULAR, ONCE (UP TO 30 DAYS AMB), 1 dose, On Sun07/22/24 at 1630, REFRIGERATE - Pharmaceutical Waste: Lab Pack -Start: 04-15-2024 End: 00-82-1001bfgjydxqxjdx toxin type A 400 Units injection (BOTOX)Start: 04-15-2024 End: Units, INTRAMUSCULAR, ONCE (UP TO 30 DAYS AMB), 1 dose, On Sun04/15/24 at 1300, REFRIGERATE - Pharmaceutical Waste: Lab Pack -Start: 01-11-2024 End: 07-46-4983bwwqbzxvvqoz toxin type A 275 Units injection (BOTOX)Start: 01-11-2024 End: 03-25-2391070 Units, INTRAMUSCULAR, ONCE (UP TO 30 DAYS AMB), 1 dose, On Sun01/11/24 at 1800, REFRIGERATE - Pharmaceutical Waste: Lab Pack -bumetanide 1 mg oral tablet (20 sources)Loop DiureticStart: 11-19-2024 End: 19-69-2267iyog 1 tablet by mouth twice dailyBumetanide 1 mg tablet Discontinued 1 MG PO Twice daily November 19, 2024 12:00am November 26, 2024 8 :06amStart: 41-07-1349zukg 1 tablet by mouth twice dailyBumetanide 1 mg tablet Active 0 .ROUTE .COMPLEX 60 April 14, 2024 11:15pm Take 1 tablet by mouth twice daily Complies with drug therapyStart: 51-59-7854obsu 1 tablet by mouth every twelve hoursbumetanide (BUMEX) 1 mg tablet Take 1 tablet by mouth every 12 hours. 03/12/2024 ActiveStart: 03-11-2024 End: 35-82-9141txsw 1 tablet by mouth twice dailyBumetanide 1 mg tablet Discontinued 1 MG PO Twice daily 60 March 12, 2024 3:17pm April 14, 2024 11:15pmcalcium carbonate 500 mg chewable tablet (20 sources)Start: 07-20-2022 End: 24-50-8275pgde 500 mg by mouth every eight hours as neededcalcium carbonate (TUMS) 500 mg chew Take 1 tablet by mouth three times daily as needed. 90 tablet 07/20/2022 09/16/2023 Discontinued (Course of therapy completed)take 1 tablet by mouth every twenty-four hoursTums 500 MG 1 tablet Orally Once a day ActiveComment on above:Take 1 tablet by mouth three times daily as needed. calcium chloride 0.001 meq/ml / glucose 50 mg/ml / potassium chloride 0.004 meq/ml / sodium chloride 0.103 meq/ml / sodium lactate 0.028 meq/ml injectable solution (2 sources)Start: 06-27-2023 End: 24-33-4071Dvaytsuhwbg, at 100 mL/hr, CONTINUOUS, Starting on Sun06/27/23 at 1000, Until Sun06/27/23 at 2058Start: 06-25-2023 End: 71-26-4418Rujmqthgkhh, at 150 mL/hr, CONTINUOUS, Starting on Sun06/25/23 at 1224, Until Sun06/26/23 at 0532calcium chloride 0.0014 meq/ml / potassium chloride 0.004 meq/ml / sodium chloride 0.103 meq/ml / sodium lactate 0.028 meq/ml injectable solution (9 sources)Start: 06-29-2023 End: 73-18-7829Hnmgfyzfpjw, at 100 mL/hr, CONTINUOUS, Starting on Sun06/29/23 at 1230, Until Sun06/29/23 at 1517Start: 06-27-2023 End: 83-73-3972ktbf 1 dose intravenously every hour1,000 mL, at 999 mL/hr, Intravenous, FLUID BOLUS, 1 dose, On Sun06/27/23 at 2330Start: 06-26-2023 End: 74-01-5006Cjcke: 06-25-2023 End: 29-03-5259Tvkzjxfjcze, at 100 mL/hr, CONTINUOUS, Starting on Sun06/27/23 at 2130, Until Sun06/29/23 at [id number] ml calcium gluconate 20 mg/ml injection (1 source)Start: 07-05-2023 End: ,000 mg, Intravenous, ONCE, 1 dose, On Sun07/05/23 at 0700, at 100 mL/hrceFAZolin 2000 mg injection (1 source)Cephalosporin AntibacterialStart: 07-11-2023 End: ,000 mg, Intravenous, EVERY 8 HOURS ANTIBIOTIC, 2 doses, First dose on Sun07/11/23 at 0800, Last dose on Sun07/11/23 at 1400cefTRIAXone 1000 mg injection (1 source)Cephalosporin AntibacterialStart: 01-30-2022 End: 61-55-4309psuXPYJEfmd 1 g intramuscular injection (ROCEPHIN)cephalexin 500 mg oral tablet (2 sources)Cephalosporin AntibacterialStart: 11-26-2024 End: 33-31-8223sljq 1 tablet by mouth three times dailyCephalexin Hcl 500 mg tablet Discontinued 500 MG PO Three times daily November 26, 2024 12:00am December 10, 2024 11:11amciprofloxacin 500 mg oral tablet (10 sources)Quinolone AntimicrobialStart: 11-26-2024 End: 35-86-9448dloq 1 tablet by mouth twice dailyCiprofloxacin Hcl 500 mg tablet Discontinued 500 MG PO Twice daily November 26, 2024 12:00am 2024 11:11amStart: 22-26-8876Jxfiytyswzpcg HCl 0.3 % 1 application into the lower eyelid of affected eye Ophthalmic tid for 5 day(s) Sep, Not-Taking/PRN Start: 62-92-8723Rgahnwzyuqdvo HCl 0.3 % 1 application into the lower eyelid of affected eye Ophthalmic tid for 5 day(s) Sep, Not-TakingStart: 36-65-5804jtisczjjws sodium 0.01 mg/mg topical gel (20 sources)Nonsteroidal Anti-inflammatory DrugStart: 07-20-2022 End: 45-30-7840mnpbg 2 g topically every six hours as neededdiclofenac (VOLTAREN) 1 % topical gel Apply 2 g to affected area four times daily as needed (for knee pain - bilateral). 100 g 07/20/2022 01/15/2023 DiscontinuedVoltaren 1 % as directed Externally ActiveComment on above:Apply 2 g to affected area four times daily as needed (for knee pain - bilateral).enalapril maleate 20 mg oral tablet (20 sources)Angiotensin Converting Enzyme InhibitorStart: 02-18-2019 End: 72-17-6750gvbf 1 tablet by mouth once dailyEnalapril Maleate (Vasotec) 20 mg Tablet Discontinued 20 MG PO Daily April 30, 2021 1:00am August 08, 2022 1:28pmStart: 02-18-2019 End: 92-78-2660ldok 1 tablet by mouth every twenty-four hoursenalapril (VASOTEC) 20 mg tablet Take 20 mg by mouth q 24 HR. 02/18/2019 01/04/2022 Discontinued Start: 04-25-2005 End: 22-09-5642ZNPTFDD 10 MG TAB Take one(1) tablet daily. 0 04/25/2005 04/23/2021 DiscontinuedComment on above:Take one(1) tablet daily.Take 20 mg by mouth q 24 HR.0.6 ml enoxaparin sodium 100 mg/ml prefilled syringe (2 sources)Low Molecular Weight HeparinStart: 06-29-2023 End: 05-45-623293 mg, Subcutaneous, 2 TIMES DAILY, 21 doses, First dose (after last modification) on Sun06/29/23 at 2100, Last dose on Sun07/09/23 at 2100 Start: 06-28-2023 End: 23-36-0972yprujl 40 mg by subcutaneous injection twice daily40 mg, Subcutaneous, 2 TIMES DAILY, First dose on Alejandra 06/28/23 at 1100, Until Discontinuedergocalciferol 1.25 mg oral capsule (15 sources)Provitamin D2 CompoundStart: 24-34-4027ipyy 1 capsule by mouth every weekVitamin D (Ergocalciferol) 1.25 MG (87221 UT) Oral Capsule TAKE ONE CAPSULE BY MOUTH ONE TIME PER WEEK Quantity: 12 Refills: 1 Ordered: 04-Aug-2020 Nayely Villasenor PA-C Start : 04-Aug-2020 Activeescitalopram 10 mg oral tablet (2 sources)Serotonin Reuptake InhibitorStart: 53-26-2034WDBLRFH 10 MG TAB Take one(1) tablet daily. 0 04/25/2005 ActiveComment on above:Take one(1) tablet daily.ferrous sulfate 325 mg oral tablet (20 sources)Start: 08-08-2022 End: 44-44-8516bjor 1 tablet by mouth once dailyFerrous Sulfate (Iron) 325 mg (65 mg iron) Tablet Discontinued 325 MG PO Daily August 08, 2022 12:00am November 19, 2024 10:27amStart: 06-16-2022 End: 84-38-5991onng 1 tablet by mouth every other dayferrous sulfate 325 mg (65 mg iron) tablet Take 1 tablet by mouth every other day. 06/16/2022 06/26/2023 Discontinuedtake 1 tablet by mouth every other dayFerrous Sulfate 325 (65 Fe) MG 1 tablet Orally every other day Activetake 1 tablet by mouth every other day Ferrous Sulfate 325 (65 Fe) MG 1 tablet Orally every other day ActiveComment on above:Take 1 tablet by mouth every other day.fexofenadine hydrochloride 180 mg oral tablet (20 sources)Histamine-1 Receptor AntagonistStart: 04-25-2005 End: 58-44-8713rkbv 1 tablet by mouth once daily as neededFexofenadine 180 mg tablet Discontinued 180 MG PO Daily as needed for allergy symptoms July 15 12:00am November 19, 2024 10:27am 1 tablet Swallow whole with water; do not take with fruit juicesComment on above:Take one(1) tablet daily.Take by mouth. PRN fluticasone propionate 0.05 mg/actuat metered dose nasal spray (20 sources)CorticosteroidStart: 08-28-2023 End: 66-26-1893jdio 1 spray(s) nasal route twice dailyFluticasone Propionate 50 mcg/actuation spray,suspension Discontinued 0 .ROUTE .COMPLEX 48 August 28, 2023 9:46am November 19, 2024 10:27am USE 1 SPRAY IN EACH NOSTRIL TWICE A DAYStart: 08-01-2023 End: 49-69-4558liyi 1 spray(s) nasal route twice dailyFluticasone Propionate (Flonase Allergy Relief) 50 mcg/actuation spray,suspension Discontinued 1 SPRAY INTRANASAL Twice daily August 01, 2023 12:00am August 28, 2023 9:46am administer into eachnostrilfluticasone / salmeterol (8 sources)Corticosteroid, beta2-Adrenergic AgonistAdvair Diskus 250/50 250/50 1 puff Inhalation as directed Not-TakingAdvair Diskus 250/50 250/50 1 puff Inhalation as directed ActiveFLUTICASONE PROPION-SALMETEROL INHALATION (4 sources) End: 77-92-8952MECFIDTUTUW PROPION-SALMETEROL INHALATION Inhale 1 Puff as instructed as needed. 0 10/07/2023 DiscontinuedFLUTICASONE PROPION-SALMETEROL INHALATION Inhale 1 Puff as instructed as needed. 0 Activefurosemide 20 mg oral tablet (20 sources)Loop DiureticStart: 03-10-2024 End: 42-15-6156zseb 1 tablet by mouth twice dailyFurosemide 20 mg tablet Discontinued 20 MG PO Twice daily 60 March 10, 2024 2:03pm 2023 6:10pmStart: 02-29-2024 End: 53-16-4885kjug 1 tablet by mouth once dailyFurosemide 20 mg tablet Discontinued 20 MG PO Daily February 29, 2024 1:00am March 10, 2024 1:12pmgabapentin 300 mg oral capsule (20 sources)Anti-epileptic AgentStart: 11-07-2023 End: 12-05-5336zdwvgxqspj (NEURONTIN) 300 mg capsule Take 300 mg by mouth. 11/07/2023 01/11/2024 Discontinued (Course of therapy completed)glucagon 3 mg nasal powder (20 sources)Antihypoglycemic AgentStart: 07-16-2023 End: 01-16-0466Povfcldz 3 mg/actuation spray,non-aerosol Discontinued 3 MG INTRANASAL Daily July 16, 2023 12:00am November 19, 2024 10:27amStart: 06-15-2022 End: 26-25-2584wawpvtmk (BAQSIMI) 3 mg/actuation nasal spray Use 1 [place] in the nose as needed. 06/15/2022 10/07/2023 DiscontinuedStart: 04-29-2019 End: 36-44-6232btdolhod 3 mg/actuation nasal spray (BAQSIMI) 04/29/2019 Active Start: 74-36-2274Heymudl Two Pack 3 MG/DOSE Nasal Powder Please use as directed for emergent low hypoglycemia Quantity: 1 Refills: 3 Ordered: 21-Jun-2021 Nayely Villasenor PA-C Start : 29-Apr-2019 ActiveComment on above:Use in the nose as needed.Use 1 [place] in the nose as needed.1 ml heparin sodium, porcine 5000 unt/ml injection (4 sources)Unfractionated Heparin, Anti-coagulantStart: 40-46-9548rjrlct 1 mL by subcutaneous injection every twelve hoursheparin 5,000 unit/mL injection Inject 1 mL subcutaneously every 12 hours. To be held before surgery as per [facility] team 0 10/11/2023 SuspendedStart: 06-25-2023 End: ml hydrALAZINE hydrochloride 20 mg/ml injection (1 source)Arteriolar VasodilatorStart: 06-28-2023 End: 07-04-0303hucl 10 mg intravenously every six hours as mg, Intravenous Push, EVERY 6 HOURS PRN, Starting on Alejandra 06/28/23 at 2016, Until 07/09/23 at 1110, Other, SBP >1601 ml HYDROmorphone hydrochloride 1 mg/ml cartridge (8 sources)Opioid AgonistStart: 07-10-2023 End: .5 mg, Intravenous Push, PACU EVERY 15 MIN PRN X 4 DOSES, 4 doses, Starting on Sun07/10/23 at 0822, Until Sun07/10/23 at 1134, Severe Pain (pain score 7,8,9,10), PACU NowStart: 06-27-2023 End: 99-57-5906aggz 0.4 mg intravenously every four hours as needed for pain0.4 mg, Intravenous Push, EVERY 4 HOURS PRN, Starting on Sun06/27/23 at 205, Until Sun06/29/23 at 205, Breakthrough PainStart: 06-26-2023 End: 80-17-9330Bvgak: 06-25-2023 End: .3 mg, Intravenous Push, EVERY 4 HOURS PRN, Starting on Sun06/25/23 at 1822, Until Sun06/27/23 at 182, Moderate Pain (pain score 4,5,6), Severe Pain (pain score 7,8,9,10)Start: 06-25-2023 End: mg, Intravenous Push, STAT, 1 dose, On Sun06/25/23 at 1511 Start: 06-25-2023 End: mg, Intravenous Push, STAT, 1 dose, On Sun06/25/23 at 1032 Start: 06-25-2023 End: 37-16-6197zdvf 0.5 mg intravenously once0.5 mg, Intravenous Push, ONCE, 1 dose, On Sun06/25/23 at 0511ibuprofen 600 mg oral tablet (20 sources)Nonsteroidal Anti-inflammatory DrugStart: 04-30-2021 End: 91-35-3361Vqemyuvcd 600 mg tablet Discontinued 800 MG PO Every 6 hours as needed for Pain April 30, 2021 1:00am August 08, 2022 1:28pmStart: 04-30-2021 End: 28-16-2921xjen 800 mg by mouth every six hoursIbuprofen Discontinued 800 MG PO Every 6 hours April 30, 2021 1:00am August 08, 2022 1:28pmStart: 04-25-2005 End: 81-29-6732CICPFA 800 MG TAB as necessary 0 04/25/2005 04/13/2021 Discontinuedtake 1 tablet by mouth three times daily as neededMotrin 800 MG 1 tablet prn Orally Three times a day Not-TakingComment on above:as necessary Insulin Aspart U-100 (Novolog U-100 Insulin Aspart) 100 unit/mL solution (15 sources)Start: 04-30-2021 End: 10-49-0270Xzapmib Aspart U-100 (Novolog U-100 Insulin Aspart) 100 unit/mL solution Discontinued 0 [address] April 30, 2021 1:00am March 11, 2024 9:39am patient has insulin pumpStart: 04-30-2021 End: 58-16-9056Eaaisjq Aspart U-100 (Novolog U-100 Insulin Aspart) 100 unit/mL solution Discontinued 0 .R[address] April 30, 2021 12:00am March 11, 2024 8:39am patient has insulin pumpStart: 72-32-3323Okpxlki Aspart U-100 (Novolog U-100 Insulin Aspart) 100 unit/mL solution Active 0 .ROUTE .[facility] 2021 12:00am patient has insulin pumpStart: 48-25-6410Uxkgxze Aspart U-100 (Novolog U-100 Insulin Aspart) 100 unit/mL solution Active 0 .ROU[address] .[facility] April 30, 2021 1:00am patient has insulin pumpinsulin detemir 100 unt/ml injectable solution (8 sources)Insulin AnalogStart: 71-40-5183Tboaixs 100 UNIT/ML as directed Subcutaneous May, Not-Takinginsulin lispro 100 unt/ml injectable solution (20 sources)Insulin AnalogStart: 07-12-2023 End: 83-34-9934hzsorgz lispro 100 unit/mL injection Inject 300 Units subcutaneously. Not currently on-- using insulin pump 07/12/2023 02/06/2024 Discontinued (Discontinued by another Health Care Provider)Start: Units, Subcutaneous, ONCE, 1 dose, On Alejandra 07/12/23 at 0930Start: 07-10-2023 End: 82-25-2677qrnmsk 3-6 [IU] by subcutaneous injection three times daily before mealtime3-6 Units, Subcutaneous, 3 TIMES DAILY BEFORE MEALS, First dose (after last modification) on Sun07/11/23 at 1700, Until DiscontinuedStart: 06-29-2023 End: 41-87-2414belyht 3-18 [IU] by subcutaneous injection four times daily after mealtime3-18 Units, Subcutaneous, 4 TIMES DAILY AFTER MEALS & AT BEDTIME, First dose (after last modification) on Sun06/29/23 at 1300, Until DiscontinuedStart: 06-26-2023 End: 39-76-7388nvyycpq lispro (HumaLOG) 100 UNIT/ML injection Inject 300 Units into the pump. Draw up 3ml (300U) to fill insulin pump 10 mL 0 07/12/2023 Active Start: 06-26-2023 End: 49-62-3787rdupjt 2-12 [IU] by subcutaneous injection every six hours2-12 Units, Subcutaneous, Every 6 hours, First dose (after last modification) on Sun06/26/23 at 1800, Until DiscontinuedStart: 07-20-2022 End: 18-00-8776vgocuks lispro (HUMALOG U-100 INSULIN) 100 unit/mL injection Inject 0-8 units subcutaneously 3 times daily before meals. Patient to carb count 1 unit per 9 g of carbs 10 mL 1 07/20/2022 03/19/2023 DiscontinuedStart: 07-20-2022 End: 40-10-5008kbvpgnv lispro (HUMALOG U-100 INSULIN) 100 unit/mL injection Inject 0-5 units subcutaneously at bedtime. 111-150 Give 0 units 151-200 Give 1 unit 201-250 Give 2 units 251-300 Give 3 units 301-350 Give 4 units 351-400 Give 5 units >400 give 5units and notify provider. 3 mL 07/20/2022 10/04/2023 Di scontinuedHumalog U100 8 units SC before meals, tid for 30 days Not-Taking/PRN Humalog U100 0-10 units sc 3 times daily before meals Not-Taking/PRNHumalog U100 0-5 units sc at bedtime Not-Taking/PRNHumalog U100 0-10 units sc 3 times daily before meals Not-TakingHumalog U100 8 units SC before meals, tid for 30 days Not-TakingHumalog U100 0-5 units sc at bedtime Not-TakingHumalog U100 8 units SC before meals, tid for 30 days ActiveHumalog U100 0-8 units sc 3 times before meals ActiveHumalog U100 0-10 units sc 3 times daily before meals ActiveHumalog U100 0-5 units sc at bedtime ActiveComment on above:Inject 0-8 units subcutaneously 3 times daily before meals. Patient to carb count 1 unit per 9 g ofcarbsInject 0-10 units subcutaneously 3 times daily before meals. Supplemental Sliding Scale: Humalog Program #2 AC If Blood Glucose (mg/dL) is <110 Give 0 units 111-150 Give 0 units 151-200 Give 2 unit 201-250 Give 4 units 251-300 Give 6 units 301-350 Give 8 units 351-400 Give 10 units >400 give 10units and notify provider.Inject 0-5 units subcutaneously at bedtime. <110 Give 0 units 111-150 Give 0 units 151-200 Give 1 unit 201-250 Give 2 units 251-300 Give 3 units 301-350 Give 4 units 351-400 Give 5 units >400 give 5units and notify provider.insulin, regular, human 100 unt/ml injectable solution (1 source)InsulinStart: 07-10-2023 End: 08-47-9210kyooaq 1 dose by subcutaneous injection once12 Units, Subcutaneous, ONCE, 1 dose, On Sun07/10/23 at 0900Start: 07-10-2023 End: 45-30-6143ieqmhk 1 dose by subcutaneous injection once12 Units, Subcutaneous, ONCE, 1 dose, On Sun07/10/23 at 0900ipratropium bromide 0.042 mg/actuat metered dose nasal spray (20 sources)AnticholinergicStart: 07-16-2023 End: 43-96-3726Kcwnjvxwlas [place] 42 mcg (0.06 %) spray,non-aerosol Discontinued 2 SPRAY INTRANASAL Three times daily July 16, 2023 12:00am November 19, 2024 10:28amStart: 04-25-2005 End: 35-75-8521JFWZQTIUKMB BROMIDE 0.06 % NASAL SPRAY AEROSOL Use in the nose. 0 04/25/2005 06/14/2022 Discontinuedtake 2 spray(s) nasal route every eight hours ipratropium (ATROVENT) 0.06 % nasal spray Use 2 Sprays in each nostril every 8 hours. Activetake 2 spray(s) nasal route three times dailyIpratropium [place] 0.06 % 2 sprays in each nostril Nasally Three times a day Activetake 2 spray(s) nasal route three times dailyIpratropium [place] 0.06 % 2 sprays in each nostril Nasally Three times a day ActiveComment on above:Take one(1) tablet four (4) times daily.Use in the nose. L.acid-L.casei-B.bif-B.mary beth-FOS (PROBIOTIC BLEND) 2 billion cell-50 mg cap (20 sources)Start: 06-15-2022 End: 88-90-3130ypey 1 capsule by mouth once dailyL.acid-L.casei-B.bif-B.mary beth-FOS (PROBIOTIC BLEND) 2 billion cell-50 mg cap Take 1 capsule by mouth once daily. 100 capsule 06/15/2022 06/26/2023 DiscontinuedStart: 06-15-2022 End: 96-60-7021liga 1 capsule by mouth once dailyL.acid-L.casei-B.bif-B.mary beth-FOS (PROBIOTIC BLEND) 2 billion cell-50 mg cap Take 1 capsule by mouth once daily. 100 capsule 0 06/15/2022 06/26/2023 DiscontinuedStart: 21-77-8798dsxr 1 capsule by mouth once dailyL.acid-L.casei-B.bif-B.mary beth-FOS (PROBIOTIC BLEND) 2 billion cell-50 mg cap Take 1 capsule by mouth once daily. 100 capsule 0 06/15/2022 ActiveStart: 59-59-0885suqd 1 capsule by mouth once daily L.acid-L.casei-B.bif-B.mary beth-FOS (PROBIOTIC BLEND) 2 billion cell-50 mg cap Take 1 capsule by mouth once daily. 100 capsule 0 06/15/2022 SuspendedStart: 56-67-5888kaix 1 capsule by mouth once dailyL.acid-L.casei-B.bif-B.mary beth-FOS (PROBIOTIC BLEND) 2 billion cell-50 mg cap Take 1 capsule by mouth once daily. 100 capsule 0 01/06/2022 ActiveComment on above:Take 1 capsule by mouth once daily.labetalol hydrochloride 5 mg/ml injectable solution (1 source)beta-Adrenergic BlockerStart: 06-29-2023 End: 05-74-6462mkfs 20 mg intravenously every six hours as yppxkm76 mg, Intravenous Push, EVERY 6 HOURS PRN, Starting on Sun06/29/23 at 0257, Until Sun07/09/23 at 1110, SBP >170lidocaine hydrochloride 20 mg/ml mucous membrane topical solution (2 sources)Antiarrhythmic, Amide Local AnestheticStart: 15-37-6119OSVRVLZUR VISCOUS 2 % MUCOSAL SOLN as necessary 0 04/25/2005 ActiveComment on above:as necessaryLORazepam 0.5 mg oral tablet (20 sources)BenzodiazepineStart: 07-16-2023 End: 40-95-5477Nkqfazlmf 0.5 mg tablet Discontinued 0.5 MG PO July 16, 2023 12:00am August 08, 2024 11:29am 1 -2 tablets Orally before MRIStart: 04-25-2023 LORazepam 0.5 MG 1 - 2 tablets Orally before MRI for 1 days Apr, Active Start: 43-34-7007OVRomepmi 0.5 MG 1-2 PO Orally Once a day before MRI for 1 days August, ActiveMagnesium (20 sources) End: 47-69-2747tzid 400 mg by mouth once dailyMAGNESIUM ORAL Take 400 mg by mouth once daily. 0 10/07/2023 Discontinuedtake 400 mg by mouth once daily MAGNESIUM ORAL Take 400 mg by mouth once daily. 0 Activemagnesium hydroxide 80 mg/ml oral suspension (18 sources)Start: 05-05-2021 End: 29-03-6352vmro 1 mL by mouth four times daily as needed for constipation Magnesium Hydroxide (Milk Of Magnesia) 400 mg/5 mL suspension Discontinued 10 ML PO Four times daily as needed for constipation 355 May 05, 2021 1:00am August 08, 2022 1:28pmStart: 05-05-2021 End: 26-63-5102ifgc 1 mL by mouth four times daily as needed for constipation Magnesium Hydroxide (Milk Of Magnesia) 400 mg/5 mL suspension Discontinued 10 ML PO Four times daily as needed for constipation 355 May 05, 2021 1:00am August 08, 2022 1:28pmStart: 05-05-2021 End: 28-10-2644cwlg 1 mL by mouth four times daily as needed for constipation Magnesium Hydroxide (Milk Of Magnesia) 400 mg/5 mL suspension Discontinued 10 ML PO Four times daily as needed for constipation 355 May 05, 2021 12:00am August 08, 2022 12:28pmStart: 05-05-2021 End: 47-42-6858ajdu 1 mL by mouth four times dailyMagnesium Hydroxide (Milk Of Magnesia) 400 mg/5 mL suspension Discontinued 10 ML PO Four times daily 355 May 05, 2021 1:00am August 08, 2022 1:28pmStart: 55-64-2243ydwz 1 mL by mouth four times dailyMagnesium Hydroxide (Milk Of Magnesia) 400 mg/5 mL suspension Active 10 ML PO Four times daily 355 May 05, 2021 1:00am magnesium oxide 400 mg oral tablet (20 sources)Start: 11-07-2023 End: 01-54-0314vhifqpoyg oxide (MAG-OX) 400 mg (241.3 mg magnesium) tablet Take 800 mg by mouth. 11/07/2023 01/11/2024 Discontinued (Other)100 ml magnesium sulfate 40 mg/ml injection (7 sources)Start: 07-08-2023 End: ,000 mg, Intravenous, ONCE, 1 dose, On Sun07/08/23 at 0730Start: 07-05-2023 End: g (2,000 mg), Intravenous, ONCE, 1 dose, On Sun07/05/23 at 0700 Start: 07-01-2023 End: g (2,000 mg), Intravenous, ONCE, 1 dose, On Sun07/03/23 at 1030 Start: 06-26-2023 End: ,000 mg, Intravenous, ONCE, 1 dose, On Sun06/26/23 at 0630 meloxicam 15 mg oral tablet (16 sources)Nonsteroidal Anti-inflammatory DrugStart: 07-16-2023 End: 04-27-9079ikxq 1 tablet by mouth once dailyMeloxicam 15 mg tablet Discontinued 15 MG PO Daily July 16, 2023 12:00am July 17, 2023 2:46pmStart: 63-14-2062hcue 1 tablet by mouth every twenty-four hoursMeloxicam 15 MG 1 tablet Orally Once a day for 30 days Apr, ActivemetFORMIN hydrochloride 500 mg oral tablet (20 sources)BiguanideStart: 02-18-2019 End: 41-27-5044yhrv 1 tablet by mouth once dailyMetformin 500 mg tablet Discontinued 500 MG PO Daily April 30, 2021 1:00am June 10, 2021 2 :30pm On Hold: resume when you are tolerating a normal dietStart: 64-18-7656gpzh 1 tablet by mouth every twenty-four hoursmetFORMIN HCl ER 500 MG 1 tablet with evening meal Orally Once a day May, Not-TakingComment on above:Take 500 mg by mouth once daily.methocarbamol 500 mg oral tablet (20 sources)Muscle RelaxantStart: 10-20-2023 End: 43-93-3595zoww 1 tablet enteral route every six hours as needed methocarbamol (ROBAXIN) 500 mg tablet 1 tablet by ORAL/FEEDING TUBE route four times a day as needed. 10/20/2023 02/06/2024 DiscontinuedStart: 26-66-8956qczy 500 mg by mouth every eight eezca426 mg, Oral, EVERY 8 HOURS, First dose on Sun07/04/23 at 0730, Until DiscontinuedStart: 07-04-2023 End: 84-48-8172hjnd 1 dose by mouth kopz318 mg, Oral, Once, 1 dose, On Sun07/04/23 [place] 69395 ml metoclopramide 5 mg/ml prefilled syringe (19 sources)Dopamine-2 Receptor AntagonistStart: 06-25-2023 End: mg, Intravenous Push, STAT, 1 dose, On Sun06/25/23 at 0511 Start: 05-05-2021 End: 88-82-6142tpin 1 tablet by mouth every six hours as needed for nausea Metoclopramide Hcl (Reglan) 10 mg tablet Discontinued 10 MG PO Q6H as needed for nausea 02 09May 05, 2021 1:00am August 08, 2022 1:28pmmetroNIDAZOLE 0.0075 mg/mg topical gel (11 sources)Nitroimidazole AntimicrobialStart: 11-19-2024 End: 73-49-5762Iaiefudrrqhzq 0.75 % gel Discontinued 1 APPLIC TOPICAL Daily November 19, 2024 12:00am December 10, 2024 11:12amStart: 28-78-0540mwarhOMCHZMND 0.75 % 1 application Externally Twice a day for 10 days Sep, Not-Taking/PRNStart: 61-94-9342kmfpjypqhum 10 mg oral tablet (2 sources)Leukotriene Receptor AntagonistStart: 94-74-6270OIDXDFFNK 10 MG TAB Take one(1) tablet daily. 0 04/25/2005 ActiveComment on above:Take one(1) tablet daily.MULTIVITAMIN ORAL (14 sources) End: 93-64-9218FBUIDDCTRUUA ORAL Take by mouth. 01/14/2022 Discontinued MULTIVITAMIN ORAL Take by mouth. 0 SuspendedMULTIVITAMIN ORAL Take by mouth. 0 ActiveComment on above:Take by mouth.mupirocin 20 mg/ml topical cream (10 sources)RNA Synthetase Inhibitor AntibacterialStart: 05-22-2024 End: 25-32-3804Gcpstouca Calcium 2 % cream Discontinued 1 APPLIC TOPICAL Twice daily May 22, 2024 1:00am July 03, 2024 1:07pmStart: 05-22-2024 End: 10-67-3884Eqmsgufes Calcium 2 % cream Discontinued 1 APPLIC TOPICAL Twice daily 15 May 22, 2024 1:00am July 03, 2024 1:07pmStart: 05-22-2024 Mupirocin Calcium 2 % cream Active 1 APPLIC TOPICAL Twice daily May 22, 2024 1:00amStart: 84-87-2450Xydrckgea Calcium 2 % cream Active 1 APPLIC TOPICAL Twice daily 15 May 22, 2024 12:00amNovoLOG 100 UNIT/ML SOLN (2 sources)Start: 23-83-9117PyiaARI 100 UNIT/ML SOLN USE DIRECTED IN INSULIN PUMP. USE UP TO A MAXIMUM OF 70 UNITS DAILY Quantity: 60 Refills: 3 Ordered: 01-Feb-2021 Nayely Villasenor PA-C Start : 30-Sep-2020 Activenutritional supplements 0.07 gram-1.5 kcal/mL liqd (12 sources)Start: 63-80-2259gopowbzusrq supplements 0.07 gram-1.5 kcal/mL liqd 50 mL/hr by FEEDING TUBE route every 24 hours. Water flush of 100 ml of water every 6 hours with tube feeds. Flush corpak ever 6 hours with 20ml of water 08791 mL 0 01/12/2022 ActiveStart: 01-12-2022 End: 87-59-8235ktswyznijbv supplements 0.07 gram-1.5 kcal/mL liqd 50 mL/hr by FEEDING TUBE route every 24 hours. Water flush of 100 ml of water every 6 hours with tube feeds. Flush corpak ever 6 hours with 20ml of water 04409 mL 0 01/12/2022 02/11/2022 ActiveStart: 01-03-2022 End: 47-38-3324xburifgnicj supplements 0.07 gram-1.5 kcal/mL liqd 50 mL/hr by FEEDING TUBE route every 24 hours. 50ml/hr for 24 hours continuous. Water flush 50ml every 6 hours. 72124 mL 0 01/03/2022 02/02/2022 ActiveComment on above:50 mL/hr by FEEDING TUBE route every 24 hours. 50ml/hr for 24 hours continuous. Water flush 50ml every 6 hours.50 mL/hr by FEEDING TUBE route every 24 hours. Water flush of 100 ml of water every 6 hours with tube feeds. Flush corpak ever 6 hours with 20ml of wateromeprazole 40 mg delayed release oral capsule (20 sources)Proton Pump InhibitorStart: 08-23-2021 End: 34-68-2322dptt 1 capsule by mouth once dailyomeprazole (PRILOSEC) 40 mg capsule Take 1 capsule by mouth once daily. 90 capsule 08/23/2021 06/14/2022 DiscontinuedComment on above:Take 1 capsule by mouth once daily.oxybutynin chloride 5 mg oral tablet (1 source)Cholinergic Muscarinic AntagonistStart: 02-19-2021 End: 73-68-0984fwym 1 tablet by mouth every eight hours as neededoxybutynin (DITROPAN) 5 mg tablet Take 1 tablet by mouth every 8 hours as needed for bladder urgency (frequency related to spasm) for up to 5 days. 9 tablet 02/19/2021 04/13/2021 Discontinuedpantoprazole 40 mg delayed release oral tablet (20 sources)Proton Pump InhibitorStart: 07-20-2022 End: 32-71-0306dwsg 1 tablet by mouth once dailyPantoprazole (Protonix) 40 mg Tablet,Delayed Release (Dr/Ec) Discontinued 40 MG PO Daily August 08, 2022 12:00am July 16, 2023 2:04pmComment on above:Take 1 tablet by mouth DAILY (6 AM).phenol in water (6%) (ccf) 10 mL (11 sources)Start: 04-22-2024 End: 44-75-3328ovffis in water (6%) (ccf) 10 mLStart: 04-22-2024 End: mL, perineural injection, ONCE, 1 dose, On Sun04/22/24 at 0800, Environmental Hazardous Drug: Useappropriate PPE.Start: 01-11-2024 End: 99-33-5096hwyqr 1 dose topically once10 mL, TOPICAL, ONCE, 1 dose, On Sun01/11/24 at 1000, Environmental Hazardous Drug: Use appropriatePPE.Start: 01-11-2024 End: 43-34-4759npyvlw in water (6%) (ccf) 10 mLStart: 01-11-2024 End: 02-59-1813edxhul in water (6%) (ccf) 10 mLpiperacillin 4000 mg / tazobactam 500 mg injection (4 sources)Penicillin-class Antibacterial, beta Lactamase InhibitorStart: 06-28-2023 End: ,500 mg (4.5 g), Intravenous, EVERY 8 HOURS, 12 doses, First dose (after last modification) on Sun06/28/23 at 0300, Last dose on Sun07/01/23 at 1900, at 25 mL/hrStart: 06-26-2023 End: 28-27-7514Ikque: 37-55-3225tgivvuehlrex-tazobactam in D5W (ZOSYN) 3,375 mg iv piggyback Inject 50 mL intravenously. 2000 mL 0 06/26/2023 ActiveStart: 06-25-2023 End: ,375 mg (3.375 g), Intravenous, EVERY 6 HOURS ANTIBIOTIC, First dose on 06/24/24 at 1307, UntilDiscontinued, at 100 mL/hrpolyethylene glycol 3350 85829 mg powder for oral solution (20 sources)Osmotic LaxativeStart: 10-10-2023 End: 41-18-2770ecbubpcxjxlq glycol 3350 17 gram packet Take 1 Packet by mouth once daily as needed. Dissolve dose in 4 - 8 ounces of liquid and take as directed. 10/20/2023 12/04/2023 Discontinued (Discontinued by Patient)Start: 07-20-2022 End: 06-68-1185vcqfsdehnpiv glycol 3350 17 gram packet Take 1 Packet by mouth once daily. Dissolve dose in 4 - 8 ounces of liquid and take as directed. 30 Packet 07/20/2022 08/19/2022 ExpiredPolyethylene Glycol 3350 17 GM 1 packet mixed with 4-8 ounces of fluid Orally Once a day ActiveComment on above:Take 1 Packet by mouth once daily. Dissolve dose in 4 - 8 ounces of liquid and take as directed.Polyethylene Glycols (3 sources)Start: 11-19-2024 End: 48-15-7880Bvxfivonisrc Glycol powder Discontinued EACH MISCELLANE November 19, 2024 12:00am November 26, 2024 8:08amStart: 30-33-2505Uztesetdeaso Glycol powder Active EACH MISCELLANE November 19, 2024 12:00am Complies with drug therap yposaconazole 100 mg delayed release oral tablet (20 sources)Azole AntifungalStart: 08-29-2024 End: 44-98-1773wjun 3 tablets by mouth once dailyposaconazole DR (NOXAFIL) 100 mg tablet Take 3 tablets by mouth once daily. 08/29/2024 12/12/2024 Discontinued Start: 10-21-2023 End: 26-71-2006lroc 3 tablets by mouth once dailyposaconazole DR (NOXAFIL) 100 mg tablet Take 3 tablets by mouth once daily. 10/21/2023 08/22/2024 Discontinued Start: 76-45-8564nagb 300 mg by mouth once dailyPosaconazole (Noxafil) 300 mg susp,delayed release for recon Active 300 MG PO Daily July 1542:04pm Complies with drug therapyStart: 30-11-3046zlkw 300 mg by mouth once guymk557 mg, Oral, DAILY, First dose on Sun06/29/23 at 1230, Until DiscontinuedStart: 08-08-2022 End: 74-52-5899fnipvoyibhyz DR (NOXAFIL) 100 mg tablet 08/08/2022 09/16/2023 Discontinued (Course of therapy completed)Start: 08-08-2022 End: 66-30-0226qdhc 300 mg by mouth once dailyPosaconazole (Noxafil) 300 mg Susp,Delayed Release For Recon Discontinued 300 MG PO Daily August 08, 2022 12:00am July 16, 2023 2:05pmStart: 07-20-2022 End: 76-06-9460ezez 3 tablets by mouth once dailyPosaconazole (NOXAFIL) [address] Take 3 Tablets by mouth daily. 42 Tablet 0 07/12/2023 Active Comment on above:Take 3 tablets by mouth once daily.Posaconazole (Noxafil) 300 mg Susp,Delayed Release For Recon Active 300 MG PO Daily August 08, 2022 12:00amtake 3 tablets by mouth every dayPosaconazole (Noxafil) 300 mg Susp,Delayed Release For Recon (14 sources)Start: 08-08-2022 End: 38-88-5779krsq 300 mg by mouth once dailyPosaconazole (Noxafil) 300 mg Susp,Delayed Release For Recon Discontinued 300 MG PO Daily August 07, 2022 11:00pm July 16, 2023 1:05pmStart: 08-08-2022 End: 35-82-5828fcql 300 mg by mouth once dailyPosaconazole (Noxafil) 300 mg Susp,Delayed Release For Recon Discontinued 300 MG PO Daily August 08, 2022 12:00am July 16, 2023 2:05pmStart: 29-19-3189wsdr 300 mg by mouth once daily Posaconazole (Noxafil) 300 mg Susp,Delayed Release For Recon Active 300 MG PO Daily August 08, 2022 12:00ampotassium chloride 10 meq extended release oral capsule (20 sources)Start: 04-03-2024 End: 01-22-5515ssrk 1 capsule by mouth once dailyPotassium Chloride 10 mEq capsule, extended release Discontinued 10 MEQ PO Daily 90 90 April 04, 2024 1:49pm November 19, 2024 10:29amStart: 07-02-2023 End: 06-78-0824ecxm 1 dose by mouth once40 mEq, Oral, ONCE, 1 dose, On Sun07/02/23 at 0700Start: 07-01-2023 End: 11-07-812029 mEq, Oral, 2 TIMES DAILY, 2 doses, First dose on 07/01/23 at 0700, Last dose on Sun07/01/23 at 2100potassium phosphate 155 mg / sodium phosphate, dibasic 852 mg / sodium phosphate, monobasic 130 mg oral tablet (1 source)Start: 07-04-2023 End: 51-65-0075bail 1 tablet by mouth four times daily after mealtime1 Tablet, Oral, 4 TIMES DAILY AFTER MEALS & AT BEDTIME, 4 doses, First dose on Sun07/04/23 at 0900, Last dose on Sun07/04/23 at [id number] hr scopolamine 0.0139 mg/hr transdermal system (20 sources)AnticholinergicStart: 05-25-2021 End: 59-46-8175meutyweioby (TRANSDERM-SCOP) patch 1.5 mg/72 hr (1 mg over 3 days) Apply 1 Patch as directed every 72 hours. 5 Patch 1 05/25/2021 06/14/2022 DiscontinuedComment on above:Apply 1 Patch as directed every 72 hours.Sennosides (Senokot) 8.6 mg Tablet (14 sources)Start: 08-08-2022 End: 30-77-8559mole 1 tablet by mouth once daily as needed for constipation Sennosides (Senokot) 8.6 mg Tablet Discontinued 8.6 MG PO Daily as needed for Constipation August 08, 2022 12:00am July 16, 2023 2:04pmStart: 08-08-2022 End: 71-24-5709agee 1 tablet by mouth once daily as needed for constipation Sennosides (Senokot) 8.6 mg Tablet Discontinued 8.6 MG PO Daily as needed for Constipation August 07, 2022 11:00pm July 16, 2023 1:04pmStart: 08-08-2022 End: 09-55-1817iwoh 1 tablet by mouth once dailySennosides (Senokot) 8.6 mg Tablet Discontinued 8.6 MG PO Daily August 08, 2022 12:00am July 2:04pmStart: 10-88-3141gbwx 1 tablet by mouth once dailySennosides (Senokot) 8.6 mg Tablet Active 8.6 MG PO Daily August 08, 2022 12:00amSLIDING SCALE 1 LISPRO INSULIN (2 sources)Start: 67-63-0180JRYZFIN SCALE 1 LISPRO INSULIN as directed 0 04/25/2005 ActiveComment on above:as directedsulfamethoxazole 800 mg / trimethoprim 160 mg oral tablet (20 sources)Dihydrofolate Reductase Inhibitor Antibacterial, Sulfonamide AntimicrobialStart: 08-12-2024 End: 05-45-9440mxxx 1 tablet by mouth twice dailySulfamethoxazole-Trimethoprim (Bactrim Ds) 800-160 mg tablet Discontinued 1 TAB PO Twice daily 14 7Apr2024 12:00am November 19, 2024 10:30amStart: 02-08-2024 End: 59-30-4687huxq 1 tablet by mouth twice dailysulfamethoxazole-trimethoprim (BACTRIM DS) 800-160 mg per tablet Take 1 tablet by mouth two times aday for 7 days. 14 tablet 02/08/2024 02/15/2024 ExpiredStart: 88-62-8471lvqs 1 tablet by mouth once dailysulfamethoxazole-trimethoprim (BACTRIM DS,SEPTRA DS) 800-160 mg per tablet Take 1 tablet by mouth once daily. 45 tablet 0 01/06/2022 Active Start: 04-30-2021 End: 87-86-5253veif 1 tablet by mouth once dailySulfamethoxazole-Trimethoprim 800-160 mg tablet Discontinued 1 TAB PO Daily April 30, 2021 1:00am June 10, 2021 2:30pmComment on above:Take 1 tablet by mouth once daily.SUMAtriptan 100 mg oral tablet (2 sources)Serotonin-1b and Serotonin-1d Receptor AgonistStart: 04-25-2005 IMITREX 100 MG TAB as necessary 0 04/25/2005 ActiveComment on above:as necessary vancomycin 125 mg oral capsule (18 sources)Glycopeptide AntibacterialStart: 06-10-2021 End: 92-83-1728nnqi 1 capsule by mouth every six hoursVancomycin 125 mg capsule Discontinued 125 MG PO Q6H 40 June 10, 2021 1:00am August 08, 2022 1:29pmVitamin D3 2000 UNIT (8 sources)take 1 capsule by mouth once dailyVitamin D3 2000 UNIT 1 capsule Orally Once a day Not-Takingtake 1 capsule by mouth once dailyVitamin D3 2000 UNIT 1 capsule Orally Once a day Active (1 source)Start: Packet, Oral, 2 TIMES DAILY, First dose on Sun07/08/23 at 1400, Until Discontinued (3 sources)Start: 88-15-6313Imisd externally, 2 TIMES DAILY, First dose (after last modification) on Sun06/29/23 at 2100, UntilDiscontinuedStart: 06-26-2023 End: 64-73-1095Pxjed: 06-26-2023 End: 09-23-0561Mmfee externally, 2 TIMES DAILY, First dose on Sun06/26/23 at 0830, Until Discontinued (2 sources)Start: 07-13-2023 End: mg, Flush Catheter, ONCE, 1 dose, On Sun07/13/23 at 0300Start: 07-04-2023 End: mg, Flush Catheter, ONCE, 1 dose, On Sun07/04/23 at 0830 (2 sources)Start: 06-30-2023 End: mmol, Intravenous, EVERY 2 HOURS X 2 DOSES, 2 doses, First dose on Sun06/30/23 at 0730, Last dose on Sun06/30/23 at 0930Start: 06-29-2023 End: mmol, Intravenous, EVERY 2 HOURS X 2 DOSES, 2 doses, First dose on Sun06/29/23 at 0700, Last dose on Sun06/29/23 at 0900 (1 source)Start: 06-28-2023 End: mmol, Intravenous, EVERY 2 HOURS X 2 DOSES, 2 doses, First dose on Sun06/28/23 at 0830, Last dose on Sun06/28/23 at 1030 (1 source)Start: 06-26-2023 End: mg, Intravenous, EVERY 4 HOURS, First dose on Sun06/26/23 at 0030, Until Discontinued Problems Active Problems Problem ClassificationProblemDateDocumented DateEpisodic/ChronicAbdominal pain (20 sources)Abdominal pain; 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: [Unspecified abdominal pain]Onset: 55-16-4222SzpxzprdYxdhpxi on above:Problem List clean-up per request of Phys. EHR CmteAcute and unspecified renal failure (20 sources)Injury of kidney; 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: [Acute kidney failure, unspecified] Onset: 100516-93-6004TcmhkmfrKfwjgzf on above:Problem List clean-up per request of Phys. EHR CmteAdministrative/social admission (20 sources)Other reduced mobility; 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: [Reduced mobility]Onset: 39-46-6301IsiuwdocDnlfloh disorders (16 sources)Claustrophobia; 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: [Claustrophobia]ChronicAsthma (20 sources)Asthma; 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: [Unspecified asthma, uncomplicated]Onset: 968801-94-1076YhgbvpcFlhfxzqip-fugzkry, conduct, and disruptive behavior disorders (12 sources)Thin build in adult; 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: [Other symptoms and signs involving appearance and behavior]75-64-8988JjdgilaaLolwtxmuz and vision defects (1 source)Unspecified visual disturbance; 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: [Vision changes]Onset: 70-91-6498YpoxxntfOwebpy of bladder (20 sources)Malignant tumor of urinary bladder; 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: [Malignant neoplasm of bladder, unspecified]Onset: 159197-44-6783WrjfskeQijmcrh on above:Cystectomy Apr,ancer of other urinary organs (7 sources)Malignant epithelial neoplasm; 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: [Malignant neoplasm of urinary organ, unspecified]ChronicCataract (20 sources)Bilateral age-related nuclear cataracts; 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: [Age-related nuclear cataract, bilateral]Onset: 683424-05-8711IlifhyxRylxafg ulcer of skin (20 sources)Ulcer of back; 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: [Pressure ulcer of sacral region, unstageable]Onset: 06-16-2022 Resolved: 804753-35-9469VhuoeohHdziwhwdeblaj of surgical procedures or medical care (3 sources)Complication of surgical procedure; 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: [Other intraoperative complications of genitourinary system]Onset: 032720-59-8387 EpisodicDiabetes mellitus with complications (20 sources)Type 1 diabetes mellitus uncontrolled; 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: [Diabetes with other specified manifestations,type I [juvenile type], uncontrolled]Onset: 779823-36-7429UnynxazAhsqpck on above:Problem List clean-up per request of Phys. EHR CmteDiabetes mellitus without complication (20 sources)Type 1 diabetes mellitus; 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: [Type 1 diabetes mellitus without complications]Onset: 024332-70-6262TwxvwtsB Codes: Fall (1 source)Fall; 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: [Unspecified fall, initial encounter]Onset: 60-08-7441AnbkzecfFctzwodbnxyo (except that caused by tuberculosis or sexually transmitted disease) (13 sources)Myelitis; 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: [Myelitis, unspecified]Onset: 01-09-2025 79-08-5103CwkocdgaPyeanzud; convulsions (17 sources)Seizure; 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: [Unspecified convulsions]98-13-5772Ehswwluo Comment on above:Problem List clean-up per request of Phys. EHR CmteEsophageal disorders (6 sources)Gastro-esophageal reflux disease with esophagitis; 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: [Gastroesophageal reflux disease with esophagitis without hemorrhage]Chronic Essential hypertension (20 sources)Hypertensive disorder; 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: [Essential (primary) hypertension]Onset: 338356-65-4289YcnmlftTozbn and electrolyte disorders (20 sources)Hypokalemia; 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: [Hypokalemia]Onset: 259724-79-7740 EpisodicComment on above:Problem List clean-up per request of Phys. EHR Cmte Gastrointestinal hemorrhage (11 sources)Rectal hemorrhage; 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: [Hemorrhage of anus and rectum] 75-95-0613KgnxbuzsStqztwzvmrlzv symptoms and ill-defined conditions (3 sources)Other artificial openings of urinary tract status; 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: [Finding of urological device]Onset: 459494-21-3408GotxrhoLqopscltmduze symptoms and ill-defined conditions (8 sources)Dysuria; 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: [Dysuria]Onset: 53-21-2504Xugpdoyx Inflammation; infection of eye (except that caused by tuberculosis or sexually transmitteddisease) (2 sources)Unspecified acute conjunctivitis, right eye; 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: [Hordeolum externum right lower eyelid]EpisodicIntestinal obstruction without hernia (20 sources)Small bowel obstruction; 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: [Unspecified intestinal obstruction, unspecified as to partial versus complete obstruction]Onset: 12-16-2021 Resolved: 66-57-7465LsfdkasdZgozhzr on above:Problem List clean-up per request of Phys. EHR CmteMalaise and fatigue (19 sources)Weakness; 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: [Other malaise]Onset: 24-63-2018Ijujdpjt Mycoses (20 sources)Unspecified mycosis; 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: [Obstructive hydrocephalus]Onset: 007724-56-5135MhiesoxoXrlvoihkr of unspecified nature or uncertain behavior (20 sources)Neoplasm of bladder; 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: [Neoplasm of unspecified behavior of bladder]Onset: 869146-72-0903FefonhsyZctmlpo on above:Problem List clean-up per request of Phys. EHR CmteNonmalignant breast conditions (11 sources)Unspecified lump in the right breast, upper outer quadrant; 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: [Lump in upper outer quadrant of right breast]EpisodicNutritional deficiencies (20 sources)Vitamin D deficiency; 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: [Unspecified vitamin D deficiency]Onset: 276198-72-5992CvonwkcCmzcxbwdfsz deficiencies (20 sources)Cobalamin deficiency; 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: [Deficiency of other specified B group vitamins]Onset: 726768-71-8494NuxwmzvuLaiwc aftercare (8 sources)Long-term current use of antibiotic; 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: [alf (current) use of antibiotics]51-79-3822DpimtuvhDllad connective tissue disease (1 source)Other symptoms and signs involving the musculoskeletal system; 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: [Other musculoskeletalsymptoms referable to limbs]09-18-2023 EpisodicOther connective tissue disease (15 sources)Spasticity; 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: [Cramp and spasm]26-47-6994UkjfgzlqWutqt connective tissue disease (3 sources)Other muscle spasm; 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: [Spasm of muscle]Onset: 01-09-2025 66-55-8309YomxhlanAvogp connective tissue disease (16 sources)Spasm; 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: [Other muscle spasm]95-34-6900ShdyqpasVkfgo diseases of veins and lymphatics (12 sources)Lymphedema; 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: [Lymphedema, not elsewhere classified] 46-55-0716DbosdfoFmkgv diseases of veins and lymphatics (7 sources)Lymphedema, not elsewhere classified; 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: [Other lymphedema]70-34-9236VudymlbSpzvy diseases of veins and lymphatics (20 sources)Peripheral venous insufficiency; 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: [Venous insufficiency (chronic) (peripheral)]46-77-6420CddxwrqdTeuph diseases of veins and lymphatics (19 sources)Venous insufficiency (chronic) (peripheral); 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: [Venous (peripheral) insufficiency, unspecified]EpisodicOther eye disorders (2 sources)Bilateral posterior vitreous detachment; 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: [Vitreous degeneration, bilateral]Onset: 961021-93-5108NdowhpgTgzsr eye disorders (1 source)Vitreous degeneration, bilateral; 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: [Posterior vitreous detachment of both eyes]Onset: 80-87-3197TncxbilThgut fractures (6 sources)Fracture of multiple ribs ; 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: [Multiple fractures of ribs, unspecified side, initial encounter for closed fracture]84-94-8090Jbaxseqt Comment on above:Left 3,4 and 6Other gastrointestinal disorders (20 sources)Ileostomy present; 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: [Ileostomy status]ChronicOther gastrointestinal disorders (3 sources)Ileostomy statusChronicOther gastrointestinal disorders (1 source)Colostomy status; 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: [COLOSTOMY STATUS]Onset: 05-23-2022 ChronicOther gastrointestinal disorders (7 sources)Diarrhea; 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: [Diarrhea, unspecified]55-58-4773Sjnhdbya Other gastrointestinal disorders (4 sources)Diarrhea, unspecified; 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: [Diarrhea]61-29-9439Omzeykaq Other inflammatory condition of skin (8 sources)Rosacea; 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: [Rosacea, unspecified]ChronicOther inflammatory condition of skin (1 source)Rosacea, unspecifiedChronicOther injuries and conditions due to external causes (1 source)Fracture of bone; 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: [Other injury of unspecified body region, initial encounter]60-82-4767PmtxjodfClsdr injuries and conditions due to external causes (5 sources)Local infection of wound; 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: [Other injury of unspecified body region, initial encounter]57-19-2845XoofnbhaQroox injuries and conditions due to external causes (2 sources)Other injury of unspecified body region, initial encounter; 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: [Posttraumatic wound infection not elsewhere classified]07-24-2024 EpisodicOther liver diseases (1 source)Abnormal levels of other serum enzymes; 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: [Elevated alkaline phosphatase level]Onset: 13-17-5892MczcmwbsMcacv lower respiratory disease (2 sources)Nodule of lung; 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: [Solitary pulmonary nodule]10-15-2024 EpisodicOther nervous system disorders (6 sources)Metabolic encephalopathy; 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: [Metabolic encephalopathy] 71-43-8784OekqylsUcclh nervous system disorders (20 sources)Hydrocephalus; 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: [Hydrocephalus, unspecified]Onset: 39-28-0292MurfhczWmqft nervous system disorders (20 sources)Intraspinal space-occupying lesion; 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: [Other specified diseases of spinal cord]Onset: 621938-80-2488GwiqhprThsjt nervous system disorders (14 sources)Hydrocephalus, unspecified; 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: [Obstructive hydrocephalus]Onset: 57-97-4990WbpvuktKzbtv nervous system disorders (1 source)Other specified diseases of spinal cordChronicOther nervous system disorders (1 source)(Idiopathic) normal pressure hydrocephalus; 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: [IDIOPATH NORMAL PRESS HYDROCEPHALUS]Onset: 69-60-1719KzhmusbMgirw nervous system disorders (20 sources)Obstructive hydrocephalus; 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: [Obstructive hydrocephalus] 28-95-4415UvlarpgOnxxf nervous system disorders (20 sources)Communicating hydrocephalus; 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: [Communicating hydrocephalus]Onset: 642891-55-8610YtjmuceYibqn nervous system disorders (1 source)Hydrocephalus in diseases classified elsewhere; 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: [Hydrocephalus in diseases classifiedelsewhere]Onset: 96-29-9139BybikhdXzlhy nervous system disorders (1 source)Walking disability; 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: [Difficulty in walking, not elsewhere classified]Onset: 62-67-6536TkgqujtExdtv nervous system disorders (1 source)Ventriculoperitoneal shunt in situ; 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: [Presence of cerebrospinal fluid drainage device]07-32-1002KgvbkcoMfydd nervous system disorders (1 source)Cerebral degeneration in diseases classified elsewhereOnset: 273108-09-5584KzfawagTejix nervous system disorders (1 source)Presence of cerebrospinal fluid drainage device; 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: [Hydrocephalus managed with 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(HCC)]Onset: 84-06-1431TktbmkuWzzwp nervous system disorders (1 source)Arachnoid cyst; 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: [Cerebral cysts]52-36-9833PjlcombUiaam nervous system disorders (1 source)Syringomyelia and syringobulbia; 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: [Syringomyelia and syringobulbia (HCC)]Onset: 71-30-9487CibsfdoAlhct nervous system disorders (1 source)Communicating hydrocephalus; 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: [Communicating hydrocephalus (HCC)]Onset: 30-32-6909OisncthHzabm nervous system disorders (1 source)Other hydrocephalus; 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: [Other hydrocephalus (HCC)]Onset: 47-67-8992MyzftrfTjwdg nervous system disorders (1 source)Skin sensation disturbance; 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: [Unspecified disturbances of skin sensation]54-86-6198VhprmeotTvqdu non-traumatic joint disorders (1 source)Shoulder pain; 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: [Pain in right shoulder]03-19-2023 EpisodicOther non-traumatic joint disorders (1 source)Pain of right wrist; 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: [Right wrist pain]Other nutritional; endocrine; and metabolic disorders (20 sources)Body mass index 30+ - obesity; 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: [Body Mass Index 30.0- 30.9, adult]ChronicOther nutritional; endocrine; and metabolic disorders (20 sources)Hypophosphatemia; 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: [Other disorders of phosphorus metabolism]Onset: 025054-18-4485CpiiwljNgfmo nutritional; endocrine; and metabolic disorders (20 sources)Hypomagnesemia; 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: [Hypomagnesemia]Onset: 01-05-2022 78-87-2569NqrbwbcHthcm nutritional; endocrine; and metabolic disorders (1 source)Abnormal weight lossEpisodicOther nutritional; endocrine; and metabolic disorders (1 source)Personal history of other endocrine, nutritional and metabolic disease EpisodicOther screening for suspected conditions (not mental disorders or infectious disease) (20 sources)Patient encounter status; 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: [Encounter for screening for malignant neoplasm of colon]EpisodicComment on above:Diffuse meningeal enhancement brain, cervical, thoracic and lumbar spineProblem List clean-up per request of Phys. EHR CmteOther skin disorders (1 source)Finding of periwound skin; 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: [Unspecified skin changes] 11-63-5730XpysocbaDxlle upper respiratory infections (3 sources)Acute maxillary sinusitis, unspecified; 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: [Acute laryngitis]EpisodicOtitis media and related conditions (4 sources)Dysfunction of eustachian tube; 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: [Unspecified Eustachian tube disorder, unspecified ear]54-06-4484XfofnyrmUiqzrzshn (20 sources)Chronic paraplegia; 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: [Paraplegia, incomplete]Onset: 360613-86-3864MuyhpasFrnqixkbwp and visceral atherosclerosis (20 sources)Peripheral vascular disease, unspecified; 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: [Peripheral arterial disease]Onset: 283165-24-9339KnlzxdkQsbjgnemxo and visceral atherosclerosis (12 sources)Disorder of intestine; 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: [Acute infarction of intestine, part and extent unspecified]68-17-4547QgapzclcBgdsicza codes; unclassified (7 sources)Dependence on other enabling machines and devices; 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: [Walker as ambulation aid]65-83-8256XtgbxsiEhgtzevm codes; unclassified (1 source)Early satiety; 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: [Early satiety]EpisodicResidual codes; unclassified (18 sources)Unable to perform personal care activity; 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: [Other specified health status]24-43-3293KfpufogiXcdrdxk on above:Problem List clean-up per request of Phys. EHR CmteResidual codes; unclassified (18 sources)Altered mental status; 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: [Altered mental status, unspecified]23-16-1141LyiixtpkGeodhvr on above:Problem List clean-up per request of Phys. EHR CmteResidual codes; unclassified (5 sources)Other specified health status; 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: [Other specified conditions influencing health status]Onset: 232403-83-6436YptodofbErbuynnf codes; unclassified (1 source)Asymptomatic menopausal stateEpisodicResidual codes; unclassified (6 sources)Sedentary lifestyle; 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: [Other specified personal risk factors, not elsewhere classified]58-37-2321FkykihvoXtmuvxub codes; unclassified (1 source)Severe pain; 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: [Pain, unspecified]50-23-2679Cczvztkz Respiratory failure; insufficiency; arrest (adult) (17 sources)Acute respiratory failure; Translations: [Acute respiratory failure, unspecified whether with hypoxia or hypercapnia]10-89-0034SrypfpwlQhdpeqj on above:Problem List clean-up per request of Phys. EHR CmteRetinal detachments; defects; vascular occlusion; and retinopathy (3 sources)Bilateral epiretinal membrane of eyes; Translations: [Puckering of macula, bilateral]Onset: 456354-78-2776LcgrgyaEtcjcalnbh (except in labor) (19 sources)Sepsis; Translations: [Sepsis, unspecified organism]Onset: 210377-67-2480AqwvvjntHwfqcll on above:Problem List clean-up per request of Phys. EHR CmteSpondylosis; intervertebral disc disorders; other back problems (2 sources)Degeneration of cervical intervertebral disc; Translations: [Other cervical disc degeneration, unspecified cervical region]Onset: 10-22-2024 54-22-2903IrucenjXglawzluexi injury; contusion (11 sources)Abrasion of abdominal wall, initial encounter; Translations: [Abrasion of abdominal wall]52-78-0045IogrwhesJnuvzuomlstx (2 sources)APPOINTMENT CANCELLEDUnclassified (1 source)CONTACT W/AND (SUSP) EXPOS COVID-19; Translations: [CONTACT W/AND (SUSP) EXPOS COVID-19]Onset: 29-71-0141Xqgtnslyejst (1 source)ACIDOSIS UNSPECIFIED; Translations: [ACIDOSIS UNSPECIFIED]Onset: 45-04-4847Hywqxrwteeod (2 sources)LOW BACK PAIN, UNSPECIFIED; Translations: [LOW BACK PAIN, UNSPECIFIED]Onset: 48-53-3480Ycfgslmjfzta (7 sources)Thin build in adult; Translations: [Thin build in adult]08-08-2022 Unclassified (1 source)OPENED IN HFJLB53-03-3380Vdmtfgowojzs (1 source)NO XHMV49-65-6893Euojufyuzvma (2 sources)Autogenerated ProblemOnset: 953315-32-2703Ngzphlg tract infections (2 sources)Urinary tract infection, site not specified; Translations: [UTI SITE NOT SPECIFIED]Onset: 11-02-9970ZpkmyrjeWqikw infection (1 source)COVID-19; Translations: [COVID-19]Onset: 03-17-2022 Past or Other Problems Problem ClassificationProblemDateDocumented DateEpisodic/ChronicAcute posthemorrhagic anemia (20 sources)Anemia following acute postoperative blood loss; Translations: [Acute posthemorrhagic anemia]Onset: 879581-18-5912WpznqitgBcmooelcz infection; unspecified site (1 source)Proteus (mirabilis) (morganii) as the cause of diseases classified elsewhere; Translations: [PROTEUS CAUSE OF DZ CLASS ELSW]Onset: 04-19-2022 EpisodicCancer of bladder (17 sources)H/O: malignant neoplasm; Translations: [Personal history of malignant neoplasm of bladder]Onset: 15-29-9570SaxmaozaNsjlgrj dysrhythmias (20 sources)Palpitations; Translations: [Palpitations]Onset: 02-16-2021 34-09-5657OgogkgygOtst; stupor; and brain damage (3 sources)Unspecified coma; Translations: [UNSPECIFIED COMA]Onset: 05-27-2022 EpisodicCrushing injury or internal injury (1 source)Injury to ureter, without mention of open wound into -94-8610 EpisodicDeficiency and other anemia (1 source)Iron deficiency anemia, unspecified; Translations: [IRON DEFICIENCY ANEMIA UNSPECIFIED]Onset: 20-66-5230DymgfgvqWjyasbpp mellitus without complication (20 sources)Insulin pump present; Translations: [Hyperglycemia]Onset: 2022 57-72-2138WcfnullaQwykabrhu of lipid metabolism (20 sources)Hyperlipidemia; Translations: [Hyperlipidemia, unspecified]Onset: 10-07-2023 Resolved: 46-35-9936MbfwhksG Codes: Struck by; against (1 source)Striking against other object with subsequent fall, initial encounter; Translations: [STRIK AGNST OTH OBJ SBSQT FALL INIT]Onset: 43-83-0375Mlrrznea Esophageal disorders (1 source)Esophageal disordersFracture of lower limb (20 sources)Nondisplaced transverse fracture of left patella, subsequent encounter for closed fracture with routine healing; Translations: [Closed fracture patella, transverse ]Onset: 83-62-9149XredckjeQxktlsdrkg (except that caused by tuberculosis or sexually transmitted disease) (20 sources)Meningitis, unspecified; Translations: [Fungal meningitis]Onset: 09-93-8502TdzdqhxtBkrmxm and vomiting (6 sources)Nausea and vomiting; Translations: [Nausea with vomiting, unspecified]Onset: 69-35-2516GgtxadcmQluv wounds of extremities (20 sources)Impaired wound healing; Translations: [Unspecified open wound, left foot, initial encounter]Onset: 657965-54-2706JrjbhoyfJoaai aftercare (20 sources)Long-term current use of insulin; Translations: [Long-term (current) use of insulin]Onset: 899344-12-8557QlnxwdmqSsqbi aftercare (3 sources)alf (current) use of insulin; Translations: [CHEF SAUCIER CURRENT USE OF INSULIN]Onset: 62-18-2628RiulnuokPvmot aftercare (1 source)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 middle or 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; Translations: [OTH CHEF SAUCIER CURRENT DRUG THERAPY]Onset: 67-79-3914NlrbsilaGampt bone disease and musculoskeletal deformities (20 sources)Lesion of lumbar spine; Translations: [Disorder of bone, unspecified]Onset: 917838-85-6934EouwvyvyKohgv connective tissue disease (20 sources)Recurrent falls ; Translations: [Repeated falls]Onset: 10-11-2023 57-95-7300ZtwrlderRdhro connective tissue disease (2 sources)Cramp and spasm; Translations: [Spasticity]Onset: 94-30-6733Jzxdeoia Other connective tissue disease (1 source)Pain in left foot; Translations: [Pain in left foot]Onset: 05-27-2024 EpisodicOther connective tissue disease (1 source)Other specified soft tissue disorders; Translations: [Other specified soft tissue disorders]Onset: 14-53-4602OxkdfzczHqmhj diseases of kidney and ureters (20 sources)Hydronephrosis; Translations: [Unspecified hydronephrosis]Onset: 311530-71-9559CjdblbbzUlykj diseases of kidney and ureters (1 source)Unspecified hydronephrosis; Translations: [Hydronephrosis, unspecified hydronephrosis type]Onset: 86-50-0073PzxtxuleEvhrq injuries and conditions due to external causes (20 sources)Soft tissue injury; Translations: [Other injury of unspecified body region, initial encounter]Onset: 712302-60-4651NrknnhfxVzczt injuries and conditions due to external causes (20 sources)At risk for falls ; Translations: [History of falling]Onset: 825063-59-4324JzfolfrtBhaqg injuries and conditions due to external causes (20 sources)Fracture pain; Translations: [Other injury of unspecified body region, initial encounter]Onset: 741830-09-4920ImegixflJyusu liver diseases (20 sources)Alkaline phosphatase raised; Translations: [Abnormal levels of other serum enzymes]Onset: 841462-64-1104BtmurxbrNxhto lower respiratory disease (1 source)Shortness of breath; Translations: [SHORTNESS OF BREATH]Onset: 66-08-1486XtpztxqlRdycy lower respiratory disease (1 source)Solitary pulmonary nodule; Translations: [Pulmonary nodule]Onset: 14-75-7132XwhrgaypNhxun nervous system disorders (20 sources)Abnormal gait; Translations: [Unspecified abnormalities of gait and mobility]Onset: 607437-19-2622NwxfurejTxwos nervous system disorders (20 sources)Postoperative pain ; Translations: [Other acute postprocedural pain] Onset: 494967-68-5964PkjgazrgXracf nutritional; endocrine; and metabolic disorders (20 sources)Obesity; Translations: [Obesity, unspecified]Onset: 02-16-2021 Resolved: 187527-13-2430QfagjsjXydvn nutritional; endocrine; and metabolic disorders (1 source)Body mass index (BMI) 19.9 or less, adult; Translations: [BODY MASS INDEX 19.9 OR LESS ADULT]Onset: 38-75-3555DisydbbnXvaoauxj codes; unclassified (3 sources)Altered mental status, unspecified; Translations: [Altered mental status]Onset: 681976-71-0571EkhjajluDdvwmyvf codes; unclassified (1 source)Other specified postprocedural states; Translations: [OTH SPECIFIED POSTPROCEDURAL STATES]Onset: 83-32-4880LcdhuvagEuqxpkqx codes; unclassified (1 source)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; Translations: [ACQ ABSENCE OTH PARTS URINARY TRACT]Onset: 25-75-2902ZjgyghwxCpussalj codes; unclassified (20 sources)Finding of activity of daily living; Translations: [Other general symptoms and signs]Onset: 680729-64-4427DyjfpdlkPckbbtay codes; unclassified (20 sources)Bilateral lower limb edema; Translations: [Localized edema]Onset: 162425-65-7953LfweesuyPhwvcysw codes; unclassified (2 sources)Other postprocedural -57-1858HchiewwiXxsxnbmuiea; intervertebral disc disorders; other back problems (20 sources)Chronic low back pain; Translations: [Chronic low back pain without sciatica, unspecified back painlaterality]Onset: 75-40-0798AxifdzdiUpcliqr and strains (1 source)Strain of muscle, fascia and tendon of lower back, initial encounter; Translations: [STRAIN MUSC FASC TENDON LW BACK INT]Onset: 31-80-3038Cpmwmzju Unclassified (4 sources)Long-term current use of insulin; Translations: [Insulin long-term use]Unclassified (1 source)LOW BACK PAIN, UNSPECIFIED; Translations: [LOW BACK PAIN, UNSPECIFIED] Onset: 30-25-9272Hjuybpfmftdn (1 source)Closed fracture of distal end of left jieqc77-45-0130BEOIVRG: Highlighted row has not occurred!Residual codes; unclassified (3 sources)DiseaseEpisodic Results Test NameValueInterpretationReference RangeFacilityCNOVon 24-99-4239XICQJmejmz Visit (ORFWHP) CHIKIS TOBAR ([id number]) 1965 F Date Time Provider Department 11/4/25 10:00 AM AASHISH MONGE ORFWHP During your visit today, we recorded the following information about you: Aashish Monge PA-C 02/17/2025 10:04 AM Signed [facility] Established Visit Patient Date of : 1965 Date of Surgery: 08/23/24 Procedure Performed: Left femur IMN History: Patient presents to clinic 6 months postoperatively from the above procedure, she is doing well today. She states that she has some discomfort to the left knee but overall feeling good. She is now in a motorized wheelchair and has been seeing a spine surgeon regarding a spot on her spine. She is hoping to have surgery to remove the area causing the compression on her spine in the next few months. She has been standing with the help of her wheelchair and PT and does not have pain to the left knee with standing. Physical Exam: General: No acute distress, alert and oriented x3 and Awake and alert Left Lower Extremity: Skin:Incision well healed without any evidence of infection. No erythema, drainage or expressible discharge and Closed without ulcerations, lacerations, rashes or abrasions Vascular: Foot warm and well perfused with brisk capillary refill and Palpable DP/PT pulse Neuro: Sensation intact in saphenous/sural/deep peroneal/superficial peroneal/tibial nerve distribution Musculoskeletal: No tenderness to palpation over fracture, mild TTP over distal interlocking screw Imaging: I personally reviewed xrays of left femur and discussed with patient: Demonstrate maintained fracture alignment with no interval displacement, intact hardware, healing fracture but not fully healed at this time Assessment and Plan: Patient is a 59 year old female 6 months s/p Left femur IMN -Patient is doing well postoperatively -Patient did not require a refill of pain medications today -Discussed fracture appears healed a this time -Discussed removal of the distal interlocking screw if it causes discomfort moving forward, she will reach out to office if she decides she wants it removed -Weightbearing: Weight bearing as tolerated , Range of motion as tolerated, and Strengthening as tolerated -Follow up: PRN with x-rays Aashish Monge PA-C Referring Provider: DARYL MOREJON [[id number]] Allergies As of Date: 02/17/2025 Noted Allergy Reaction DEMERAL (MEPERIDINE) 02/09/2021 8 - GI Upset Comments: Nausea, pt states room spins FLEXERIL (CYCLOBENZAPRINE) 02/09/2021 4 - Hives ORPHENADRINE 09/30/2015 14 - Other: See Comments 4 - Hives 2 - Rash VERSED (MIDAZOLAM) 02/18/2021 1 - Mental Status Change Date Reviewed: 02/17/2025 Reviewed by: Stefano Gonzalez MA - Fully Assessed Reason for Visit: Follow Up [171] Primary Visit Diagnosis:Closed fracture of distal end of left femur, unspecified fracture morphology, initial encounter ([facility]) [S72.402A] Prescriptions as of 02/17/2025 - posaconazole DR (NOXAFIL) 100 mg tablet Take 3 tablets by mouth once daily. - doxycycline hyclate (VIBRAMYCIN) 100 mg capsule Take 1 capsule by mouth once daily. - metoprolol tartrate, short acting, (LOPRESSOR) 50 mg tablet Take 50 mg by mouth two times a day. - metroNIDAZOLE (METROGEL) 0.75 % Topical Gel Apply 0.75 % to affected area as needed. - ondansetron (ZOFRAN) 4 mg tablet Take 4 mg by mouth as needed. - ofloxacin (OCUFLOX) 0.3 % ophthalmic solution One drop in the OPERATIVE EYE only four times a day starting the day before surgery - isavuconazonium sulfate (CRESEMBA) 186 mg capsule Take 2 capsules by mouth as directed. Take two (2) capsules by mouth every 8 hours for 6 doses, then two (2) capsules per day. - baclofen 10 mg tablet Take 10 mg by mouth three times a day. 73nd-51gs-15ul - DOCUSATE SODIUM PO Take 100 mg by mouth once daily. - FAMOTIDINE PO Take by mouth. - polyethylene glycol 1450 MW, NF, BASE A, powd - cholecalciferol, vitamin D3, (VITAMIN D3 PO) Take by mouth. - acetaminophen (TYLENOL) 325 mg tablet Take 2 tablets by mouth every 6 hours as needed for pain. - aspirin, enteric coated (ADULT LOW DOSE ASPIRIN) 81 mg EC tablet Take 1 tablet by mouth two times a day for 28 days, THEN 1 tablet two times a day. - metoprolol succinate ER (TOPROL XL) 100 mg Take 0.5 tablets by mouth two times a day. - lisinopril (ZESTRIL) 5 mg tablet Take 1 tablet by mouth once daily. - bumetanide (BUMEX) 1 mg tablet Take 1 tablet by mouth every 12 hours. - cyanocobalamin (VITAMIN B-12) 1,000 mcg tab Take 1,000 mcg by mouth. - glucagon 3 mg/actuation nasal spray (BAQSIMI) - ondansetron orally disintegrating (ZOFRAN ODT) 4 mg disintegrating tablet Take 4 mg by mouth every 6 hours as needed. - DULCOLAX, BISACODYL, RECTAL by RECTAL route once daily as needed. 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 Per [facility] recent neurology note from Marlene CRISTINA: Her 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 was removed on 07/10/23 following laparotomy for bowel obstruction followed by worsening symptoms. Her shunt was re inserted on 10/11/23 with Certas valve. At last visit, Chikis continued to struggle with mobility and requested valve be adjusted back to 7. Since adjustment, she has noticed some improvement in activity but has developed new onset headaches and N/V. CT brain showed her ventricles have again decompressed at 7 without acute ischemia or hemorrhage. Discussed in detail possible benefits and risks of 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 adjustment. After discussion with Chikis, she would like to undergo shunt adjustment. Certas valve shunt was adjusted from 7 to 8. Patient was diagnosed with bladder CA in April 2021. She had her bladder removed and had a urostomy placed. All year she was nauseated and vomiting. She had antibiotics x2 but symptoms did not improve. She was then found unresponsive at home. Was then found to have a fungal mass on her spine and ventriculomegaly. A 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 was placed. She later developed a 'twisted bowel' so they externalized the shunt and then ultimately removed it. She developed severe bilateral leg spasms post operatively. When she presented to Dr. Oconnor's office for post op follow up, her left foot was dragging so the shunt was replaced again- set at 6. She was adjusted to 7 due to low pressure symptoms. She over drained and was then adjusted to 8. She is currently taking posaconozole which is managed by ID (Dr. Mccarty). ID Does not want to stop the medication due to the concern for a fluid bubble in the cervical area. She is currently having botox injections in bilateral legs but does not feel that they are helpful at this time. She currently uses a standing wheelchair. Patient is living in a hotel at this time due to discharge from rehab center. 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 She presents today with her friend who is also a nurse. HPI Review of Systems Objective There were no vitals taken for this visit. 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 Pt seen and examined by Dr. Barksdale. All recommendations initiated by Dr. Barksdale. Portions of this visit have been documented by Jaguar RIBEIRO, RN MD Shane Baker Janelle, MA 02/12/2025 11:30 AM Signed Additional intake questions: Has the patient had fever, nausea, vomiting, diarrhea, constipation, fatigue for > 1 week? No Does the patient have a decreased appetite? No Does patient want to see a Journalism Instructor? No (yes to any of above refer patient to schedulers for dietitian appointment) ) Does patient have any new or increased numbness or tingling of extremities? No Is patient interested in fertility information? No Does patient need any prescription refills? No Does patient have an advanced directive in place? Yes, copies are in Epic Electronically Signed By: MARTÍN Delgado Merritt, RN 02/12/2025 10:33 AM Addendum Plan: MRI cervical spine MRI thoracic spine Follow up with a virtual visit once imaging has been completed. Please call the imaging schedulers at [phone] Referring Provider: ASTRID NAVA [[id number]] Allergies As of Date: 02/12/2025 Noted Allergy Reaction DEMERAL (MEPERIDINE) 02/09/2021 8 - GI Upset Comments: Nausea, pt states room spins FLEXERIL (CYCLOBENZAPRINE) 02/09/2021 4 - Hives ORPHENADRINE 09/30/2015 14 - Other: See Comments 4 - Hives 2 - Rash VERSED (MIDAZOLAM) 02/18/2021 1 - Mental Status Change Date Reviewed: 02/12/2025 Reviewed by: Radha Lynn MA - Fully Assessed Reason for Visit: New Patient [172] Primary Visit Diagnosis:Syringomyelia and syringobulbia (HCC) [G95.0] Order(s[facility] [[id number] Order #: [id number] SHAYAN (more content not included)...NormalMer[facility] Health Allen HospitalCNPNon [id number] Telephone (NSCAMN) CHIKIS TOBAR ([id number]) 1965 F Date Time Provider Department 02/09/25 SUSANNA CARRANZA NSCAMN During your visit today, we recorded the following information about you: Nivia Perez 02/09/2025 9:06 AM Signed General Call Caller : Pt Contact Reason for Call : Pt called requesting an earlier appt due to concerns about possible nerve damage and suspected fluid accumulation on the spine. Patient requesting return call ? Yes Jaguar Gallardo RN 02/10/2025 11:04 AM Signed Called patient via phone. No answer and voicemail unidentified. Left a message requesting a return call to expedite her appointment. Wanted to offer patient a cancellation appointment in person with Dr. Barksdale this 02/12 at 9:30am. Awaiting patient's return call. Allergies As of Date: 02/09/2025 Noted Allergy Reaction DEMERAL (MEPERIDINE) 02/09/2021 8 - GI Upset Comments: Nausea, pt states room spins FLEXERIL (CYCLOBENZAPRINE) 02/09/2021 4 - Hives ORPHENADRINE 09/30/2015 14 - Other: See Comments 4 - Hives 2 - Rash VERSED (MIDAZOLAM) 02/18/2021 1 - Mental Status Change Date Reviewed: 01/09/2025 Reviewed by: Sarah Poon OCCA - Fully Assessed Reason for Visit: Appointment [186] Prescriptions as of 02/10/2025 - posaconazole DR (NOXAFIL) 100 mg tablet Take 3 tablets by mouth once daily. - doxycycline hyclate (VIBRAMYCIN) 100 mg capsule Take 1 capsule by mouth once daily. - metoprolol tartrate, short acting, (LOPRESSOR) 50 mg tablet Take 50 mg by mouth two times a day. - metroNIDAZOLE (METROGEL) 0.75 % Topical Gel Apply 0.75 % to affected area as needed. - ondansetron (ZOFRAN) 4 mg tablet Take 4 mg by mouth as needed. - ofloxacin (OCUFLOX) 0.3 % ophthalmic solution One drop in the OPERATIVE EYE only four times a day starting the day before surgery - isavuconazonium sulfate (CRESEMBA) 186 mg capsule Take 2 capsules by mouth as directed. Take two (2) capsules by mouth every 8 hours for 6 doses, then two (2) capsules per day. - baclofen 10 mg tablet Take 10 mg by mouth three times a day. [id number]-38td-75tj - DOCUSATE SODIUM PO Take 100 mg by mouth once daily. - FAMOTIDINE PO Take by mouth. - polyethylene glycol 1450 MW, NF, BASE A, powd - cholecalciferol, vitamin D3, (VITAMIN D3 PO) Take by mouth. - acetaminophen (TYLENOL) 325 mg tablet Take 2 tablets by mouth every 6 hours as needed for pain. - aspirin, enteric coated (ADULT LOW DOSE ASPIRIN) 81 mg EC tablet Take 1 tablet by mouth two times a day for 28 days, THEN 1 tablet two times a day. - metoprolol succinate ER (TOPROL XL) 100 mg Take 0.5 tablets by mouth two times a day. - lisinopril (ZESTRIL) 5 mg tablet Take 1 tablet by mouth once daily. - bumetanide (BUMEX) 1 mg tablet Take 1 tablet by mouth every 12 hours. - cyanocobalamin (VITAMIN B-12) 1,000 mcg tab Take 1,000 mcg by mouth. - glucagon 3 mg/actuation nasal spray (BAQSIMI) - ondansetron orally disintegrating (ZOFRAN ODT) 4 mg disintegrating tablet Take 4 mg by mouth every 6 hours as needed. - DULCOLAX, BISACODYL, RECTAL by RECTAL route once daily as needed. - dextrose 40 % gel Take 15 g by mouth as needed. - insulin aspart U-100 (NOVOLOG) 100 unit/mL Use via insulin pump Max daily dose 100 units, DX: E10.65 - lactobacillus rhamnosus (CULTURELLE) 10 billion cell capsule (Discontinued) Take 1 capsule by mouth once daily. Problem List As Of Date 02/09/2025 Noted Resolved Neoplasm of bladder [D49.4] 02/16/2021 Asthma (HCC) [J45.909] 02/16/2021 Essential hypertension [I10] 02/16/2021 Palpitations [R00.2] 02/16/2021 Obesity [E66.9] 02/16/2021 06/11/2022 Type 1 diabetes mellitus without retinopathy (H* Malignant neoplasm of urinary bladder (HCC) [C6*04/20/2021 Small bowel obstruction (HCC) [K56.609] 12/16/2021 12/21/2021 Severe protein-calorie malnutrition (HCC) [E43] 12/20/2021 Hypokalemia [E87.6] 12/21/2021 Hypophosphataemia [E83.39] 12/21/2021 Hyponatremia [E87.1] 01/05/2022 Hypomagnesemia [E83.42] 01/05/2022 Hydronephrosis [N13.30] 01/09/2022 Chronic low back pain without sciatica [M54.50,*03/13/2022 Lesion of lumbar spine [M89.9] 06/10/2022 Spinal cord mass (HCC) [G95.89] 06/15/2022 Unstageable pressure ulcer of sacral region (HC*06/16/2022 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] 09/05/2023 Tibia/fibula fracture, left, closed, initial en*10/07/2023 Dyslipidemia [E78.5] 10/07/2023 10/18/2023 Insulin pump status [Z96.41] 10/07/2023 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*10/07/2023 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] 10/07/2023 Gait abnormality [R26.9] 10/07/2023 ABLA (acute blood loss anemia) [D62] 10/09/2023 Hydrocephalus (HCC) [G91.9] 10/11/2023 Type 1 diabetes mellitus with hyperglycemia (HC*10/11/[address] [Z96.41] 10/11/2023 Recurrent falls [R29.6] 10/10 (more content not included)...[facility] 10-80-0963SKEEKcbvue Visit (RBMBHT) CHIKIS TOBAR ([id number]) 1965 F Date Time Provider Department 01/09/25 1:00 PM NOEL DANIELS [facility] WITH [facility] During your visit today, we recorded the following information about you: Temperature Pulse Blood pressure Weight 97.6 degrees 83/minute 119/68 78 kg Height 1.676 m Noel Daniels MD 01/09/2025 1:46 PM Signed BOTULINUM TOXIN THERAPY Patient accompanied by : Self Current complaints: Spasticity and spasms Brief HPI: Chikis Tobar is a 58 year old right-handed female with past medical history of T1DM c/b DKA, urothelial carcinoma of the bladder s/p radical cystectomy and ileal conduit c/b SBO (Dec 2021), HTN, chronic sinusitis, asthma, fungal meningitis, myelitis and hydrocephalus status post 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 placement June 2022, externalization on 06/25/2023, removal 07/10/2023 and reimplantation on 10/15/2023. Patient experienced impaired mobility and ADLs after removal of shunt and noted minimal improvement in lower extremity function post shunt reimplantation. She was evaluated in [facility] spasticity clinic initially on 12/04/2023 for paraplegia and associated severe spasticity and flexor spasms. She was discharged home from [facility] rehab facility on 02/15/2024. She lives on her own in a ranch type house with all arrangement on the same level, She does transfers using a slide board at home. She received initial botulinum toxin injection on 01/11/2024 and reports to clinic today for next set of botulinum toxin A injections. History since last visit: Reports good benefit with Botox. Feel like she is due for next injection. LE spasms are less as compared to last time but continue to occur with change in position. She is considering Right AFO with PT to help with clearance of right foot. She was admitted to [facility] from 08/22/24-08/29/24 for Left femur fracture s/p surgical fixation. She was discharged to acute inpatient rehab at [facility]. Subsequently she went to a SNF where she didn't get a chance to work with rehab therapy satisfactorily. She is getting PT 2/week. She will at the facility till next week. [facility] -Most recent botulinum toxin injection: 07/22/24 -Hospitalization/ER visit: No -New weakness or numbness: No -Fever or flu like symptoms : No -Ongoing antibiotics: Doxycycline for posterior -Change in bowel or bladder function: No -Other: Got a new wheelchair but not happy due to the height of the wheelchair Scheduled evaluation with spine surgery Follow up with Ortho completed, next follow up in 02/2025 - Anticoagulation/antiplatelet medications: Aspirin Spasticity treatment: -Medications: Baclofen 10 mg-10 mg - 20 mg -Botulinum toxin therapy: Yes- effective -Other/orthosis: No Patient goals: -reduce lower extremity spasms -achieved -Reduce discomfort/pain associated with spasms (achieved) -Improve participation in therapies (achieved) -Improve positioning in bed, wheelchair (achieved) -Improve mobility/transfers and ambulation (progressing) BT therapy effective? Yes - stiffness, spasms/cramps, active function and ease of care Side effects: No Spasm scale: 0=No spasm (Spasm severity 2) Pain related to the purpose of the visit: No 0 on a scale of 0 to 10 Patient Entered Data PROMIS No data to display Spasticity NRS 01/09/2025 12/16/2024 12/08/2024 07/22/2024 04/15/2024 -- Spasm Scale 1=Mild spasms induced by stimulation 1=Mild spasms induced by stimulation 1=Mild spasms induced by stimulation 1=Mild spasms induced by stimulation 2=Infrequent full spasms occuring less than once per hour Spasm Scale - Trendable Number 1 1 1 1 2 Spasm Scale No data to display Global Impression of Change No data to display Nutritional status: appetite , weight , swallowing - stable Driving issues: NA Safety concerns regarding living situations and safety at home: NA At risk for falling: Yes . slid down on the floor from wheelchair after falling asleep- no injury sustained Examination: BP 119/68 (BP Site: Right Arm, BP Position: Sitting) Pulse 83 Temp 36.4 ?C (97.6 ?F) (Temporal) Ht 167.6 cm (5' 6 ) Wt 78 kg (172 lb) BMI 27.76 kg/m? General: The patient is a well-nourished, well groomed who appears stated age. HEAD: Normocephalic EYE: -Appearance: Sclera nonicteric, PERRLA ENT: no rhinorrhea, MMM Lung: breathing unlabored in room air Skin: skin turgor is normal. Healed midline incision over anterior abdomen present. Left heel wound dressing and bandage present, No soakage or discharge. GI/: Insulin pump present over left anterior abdomen Ileal conduit with external collecting bag noted on right side draining clear urine. Extremity: edema noted in both lower extremities, reduced distal lower extremity edema Neuro: The patient was alert and oriented Articulated speech with intact comprehen (more content not included)...Normal [facility] HospitalCNPNon [id number] (INFDMN) CHIKIS TOBAR ([id number]) 1965 F Date Time Provider Department 12/12/24 JAMIE MCCARTY [facility] During your visit today, we recorded the following information about you: Clare Lin HUC 12/12/2024 12:43 PM Signed Prior authorization documentation Prior authorization process has been initiated for the following medication: Medication: Cresemba Dosage: 186mg Refills: 2 Provider: Bibiana The prior authorization has been: PENDED. (Gordon: [id number]) JONNIE Rx #: [id number] Insurance Company Name: [employer] Patient ID number: [id number] Pharmacy Name: [facility] Telephone number: [phone] Clare Lin HUC 12/12/2024 2:49 PM Signed DEEPAK Maloney Allergies As of Date: 12/12/2024 Noted Allergy Reaction DEMERAL (MEPERIDINE) 02/09/2021 8 - GI Upset Comments: Nausea, pt states room spins FLEXERIL (CYCLOBENZAPRINE) 02/09/2021 4 - Hives ORPHENADRINE 09/30/2015 14 - Other: See Comments 4 - Hives 2 - Rash VERSED (MIDAZOLAM) 02/18/2021 1 - Mental Status Change Date Reviewed: 12/11/2024 Reviewed by: Cinthia Pedraza MA - Fully Assessed Reason for Visit: Medication Authorization [[id number]] Cmt: Cresemba Prescriptions as of 12/12/2024 - isavuconazonium sulfate (CRESEMBA) 186 mg capsule Take 2 capsules by mouth as directed. Take two (2) capsules by mouth every 8 hours for 6 doses, then two (2) capsules per day. - baclofen 10 mg tablet Take 10 mg by mouth three times a day. [id number] - DOCUSATE SODIUM PO Take 100 mg by mouth once daily. - FAMOTIDINE PO Take by mouth. - polyethylene glycol 1450 MW, NF, BASE A, powd - cholecalciferol, vitamin D3, (VITAMIN D3 PO) Take by mouth. - acetaminophen (TYLENOL) 325 mg tablet Take 2 tablets by mouth every 6 hours as needed for pain. - aspirin, enteric coated (ADULT LOW DOSE ASPIRIN) 81 mg EC tablet Take 1 tablet by mouth two times a day for 28 days, THEN 1 tablet two times a day. - metoprolol succinate ER (TOPROL XL) 100 mg Take 0.5 tablets by mouth two times a day. - lisinopril (ZESTRIL) 5 mg tablet Take 1 tablet by mouth once daily. - bumetanide (BUMEX) 1 mg tablet Take 1 tablet by mouth every 12 hours. - cyanocobalamin (VITAMIN B-12) 1,000 mcg tab Take 1,000 mcg by mouth. - glucagon 3 mg/actuation nasal spray (BAQSIMI) - ondansetron orally disintegrating (ZOFRAN ODT) 4 mg disintegrating tablet Take 4 mg by mouth every 6 hours as needed. - DULCOLAX, BISACODYL, RECTAL by RECTAL route once daily as needed. - dextrose 40 % gel Take 15 g by mouth as needed. - insulin aspart U-100 (NOVOLOG) 100 unit/mL Use via insulin pump Max daily dose 100 units, DX: E10.65 - senna-docusate (SENNA-S) 8.6-50 mg per tablet 1 tablet by ORAL/FEEDING TUBE route two times a day. - lactobacillus rhamnosus (CULTURELLE) 10 billion cell capsule (Discontinued) Take 1 capsule by mouth once daily. Problem List As Of Date 12/12/2024 Noted Resolved Neoplasm of bladder [D49.4] 02/16/2021 Asthma (HCC) [J45.909] 02/16/2021 Essential hypertension [I10] 02/16/2021 Palpitations [R00.2] 02/16/2021 Obesity [E66.9] 02/16/2021 06/11/2022 Diabetes mellitus type I (HCC) [E10.9] Malignant neoplasm of urinary bladder (HCC) [C6*04/20/2021 Small bowel obstruction (HCC) [K56.609] 12/16/2021 12/21/2021 Severe protein-calorie malnutrition (HCC) [E43] 12/20/2021 Hypokalemia [E87.6] 12/21/2021 Hypophosphataemia [E83.39] 12/21/2021 Hyponatremia [E87.1] 01/05/2022 Hypomagnesemia [E83.42] 01/05/2022 Hydronephrosis [N13.30] 01/09/2022 Chronic low back pain without sciatica [M54.50,*03/13/2022 Lesion of lumbar spine [M89.9] 06/10/2022 Spinal cord mass (HCC) [G95.89] 06/15/2022 Unstageable pressure ulcer of sacral region (HC*06/16/2022 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] 09/05/2023 Tibia/fibula fracture, left, closed, initial en*10/07/2023 Dyslipidemia [E78.5] 10/07/2023 10/18/2023 Insulin pump status [Z96.41] 10/07/2023 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*10/07/2023 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] 10/07/2023 Gait abnormality [R26.9] 10/07/2023 ABLA (acute blood loss anemia) [D62] 10/09/2023 Hydrocephalus (HCC) [G91.9] 10/11/2023 Type 1 diabetes mellitus with hyperglycemia (HC*10/11/[address] [Z96.41] 10/11/2023 Recurrent falls [R29.6] 10/11/2023 Pressure injury of left heel, stage 1 [L89.621] 10/12/2023 10/12/2023 Deep tissue injury [T14.8XXA] 10/12/2023 Pressure injury of coccygeal region, stage 2 (H*10/12/2023 10/17/2023 Preop exam for internal medicine [Z01.818] 10/12/2023 10/18/2023 Pressure injury of deep tissue of left heel [L8*10/12/2023 Alteration in self-care ability [R68.89] 10/12/2023 Impaired mobility [Z74.09] 10/12/2023 Risk for falls [Z91.81] 10/12/2023 S/P exploratory laparotomy [Z98.890] 10/12/2023 Pressure injury of deep tissue (more content not included)...[facility] [id number] Visit (ORFWHP) CHIKIS TOBAR ([id number]) 1965 F Date Time Provider Department 12/11/24 10:00 AM DARYL MOREJON ORFWHP During your visit today, we recorded the following information about you: Daryl Morejon MD 12/12/2024 1:40 PM Signed Orthopa[facility] Clinic Established Visit Patient Date of : 1965 Date of Surgery: 08/23/2024 Procedure Performed: Left Femur IMN History: Patient presents to clinic 12 weeks postoperatively from the above procedure, she denies wound issues or drainage and is doing well today. She states she has no pain with weight bearing. She has been unable to ambulate with physical therapy due to limited staff at her rehab facility and plans to begin outpatient physical therapy next week. Physical Exam: General: No acute distress, alert and oriented x3 Left Lower Extremity: Skin:Incision well healed without any evidence of infection. No erythema, drainage or expressible discharge Vascular: Foot warm and well perfused with brisk capillary refill and Palpable DP/PT pulse Neuro: Sensation intact in saphenous/sural/deep peroneal/superficial peroneal/tibial nerve distribution and 5/5 EHL/TA/GSC Musculoskeletal: No tenderness to palpation over fracture, able to perform SLR Imaging: I personally reviewed xrays of L and discussed with patient: Demonstrate maintained fracture alignment with no interval displacement, intact hardware, healed fx Assessment and Plan: Patient is a 59 year old female 12 weeks s/p left femur IMN. -Patient is doing well postoperatively -Patient did not require a refill of pain medications today -Progress with therapy as tolerated -Weightbearing: Weight bearing as tolerated LLE -Follow up: 3 months Daryl Morejon MD Orthopaedic Trauma Surgery Allergies As of Date: 12/11/2024 Noted Allergy Reaction DEMERAL (MEPERIDINE) 02/09/2021 8 - GI Upset Comments: Nausea, pt states room spins FLEXERIL (CYCLOBENZAPRINE) 02/09/2021 4 - Hives ORPHENADRINE 09/30/2015 14 - Other: See Comments 4 - Hives 2 - Rash VERSED (MIDAZOLAM) 02/18/2021 1 - Mental Status Change Date Reviewed: 12/11/2024 Reviewed by: Cinthia Pedraza MA - Fully Assessed Reason for Visit: Post Op [174] Primary Visit Diagnosis:Closed fracture of distal end of left femur, unspecified fracture morphology, initial encounter ([facility]) [S72.402A] Order(s):XR FEMUR GENERAL 2V AP/LAT LEFT [[id number]] Order #: [id number] FUTURE Prescriptions as of 12/12/2024 - isavuconazonium sulfate (CRESEMBA) 186 mg capsule Take 2 capsules by mouth as directed. Take two (2) capsules by mouth every 8 hours for 6 doses, then two (2) capsules per day. - baclofen 10 mg tablet Take 10 mg by mouth three times a day. [id number] - DOCUSATE SODIUM PO Take 100 mg by mouth once daily. - FAMOTIDINE PO Take by mouth. - polyethylene glycol 1450 MW, NF, BASE A, powd - cholecalciferol, vitamin D3, (VITAMIN D3 PO) Take by mouth. - acetaminophen (TYLENOL) 325 mg tablet Take 2 tablets by mouth every 6 hours as needed for pain. - aspirin, enteric coated (ADULT LOW DOSE ASPIRIN) 81 mg EC tablet Take 1 tablet by mouth two times a day for 28 days, THEN 1 tablet two times a day. - metoprolol succinate ER (TOPROL XL) 100 mg Take 0.5 tablets by mouth two times a day. - lisinopril (ZESTRIL) 5 mg tablet Take 1 tablet by mouth once daily. - bumetanide (BUMEX) 1 mg tablet Take 1 tablet by mouth every 12 hours. - cyanocobalamin (VITAMIN B-12) 1,000 mcg tab Take 1,000 mcg by mouth. - glucagon 3 mg/actuation nasal spray (BAQSIMI) - ondansetron orally disintegrating (ZOFRAN ODT) 4 mg disintegrating tablet Take 4 mg by mouth every 6 hours as needed. - DULCOLAX, BISACODYL, RECTAL by RECTAL route once daily as needed. - dextrose 40 % gel Take 15 g by mouth as needed. - insulin aspart U-100 (NOVOLOG) 100 unit/mL Use via insulin pump Max daily dose 100 units, DX: E10.65 - senna-docusate (SENNA-S) 8.6-50 mg per tablet 1 tablet by ORAL/FEEDING TUBE route two times a day. - lactobacillus rhamnosus (CULTURELLE) 10 billion cell capsule (Discontinued) Take 1 capsule by mouth once daily. Problem List As Of Date 12/11/2024 Noted Resolved Neoplasm of bladder [D49.4] 02/16/2021 Asthma (HCC) [J45.909] 02/16/2021 Essential hypertension [I10] 02/16/2021 Palpitations [R00.2] 02/16/2021 Obesity [E66.9] 02/16/2021 06/11/2022 Diabetes mellitus type I (HCC) [E10.9] Malignant neoplasm of urinary bladder (HCC) [C6*04/20/2021 Small bowel obstruction (HCC) [K56.609] 12/16/2021 12/21/2021 Severe protein-calorie malnutrition (HCC) [E43] 12/20/2021 Hypokalemia [E87.6] 12/21/2021 Hypophosphataemia [E83.39] 12/21/2021 Hyponatremia [E87.1] 01/05/2022 Hypomagnesemia [E83.42] 01/05/2022 Hydronephrosis [N13.30] 01/09/2022 Chronic low back pain without sciatica [M54.50,*1 (more content not included)... [facility] [id number] (NSCAMN) CHIKIS TOBAR ([id number]) 1965 F Date Time Provider Department 12/11/24 SUSANNA CARRANZA NSCAMN During your visit today, we recorded the following information about you: Susanna Carranza PA-C 12/11/2024 1:27 PM Signed Next available New patient Susanna Tere AND Dr. Barksdale (Oliverstmichelle appt about 4 weeks after my appt bc I am likely going to order more testing for her. No imaging. Spinal Arachnoid cyst, LE weakness Allergies As of Date: 12/11/2024 Noted Allergy Reaction DEMERAL (MEPERIDINE) 02/09/2021 8 - GI Upset Comments: Nausea, pt states room spins FLEXERIL (CYCLOBENZAPRINE) 02/09/2021 4 - Hives ORPHENADRINE 09/30/2015 14 - Other: See Comments 4 - Hives 2 - Rash VERSED (MIDAZOLAM) 02/18/2021 1 - Mental Status Change Date Reviewed: 12/11/2024 Reviewed by: Cinthia Pedraza MA - Fully Assessed Primary Visit Diagnosis:Cyst, arachnoid [G93.0] Prescriptions as of 12/11/2024 - baclofen 10 mg tablet Take 10 mg by mouth three times a day. [id number] - DOCUSATE SODIUM PO Take 100 mg by mouth once daily. - FAMOTIDINE PO Take by mouth. - polyethylene glycol 1450 MW, NF, BASE A, powd - cholecalciferol, vitamin D3, (VITAMIN D3 PO) Take by mouth. - acetaminophen (TYLENOL) 325 mg tablet Take 2 tablets by mouth every 6 hours as needed for pain. - aspirin, enteric coated (ADULT LOW DOSE ASPIRIN) 81 mg EC tablet Take 1 tablet by mouth two times a day for 28 days, THEN 1 tablet two times a day. - metoprolol succinate ER (TOPROL XL) 100 mg Take 0.5 tablets by mouth two times a day. - posaconazole DR (NOXAFIL) 100 mg tablet Take 3 tablets by mouth once daily. - lisinopril (ZESTRIL) 5 mg tablet Take 1 tablet by mouth once daily. - bumetanide (BUMEX) 1 mg tablet Take 1 tablet by mouth every 12 hours. - cyanocobalamin (VITAMIN B-12) 1,000 mcg tab Take 1,000 mcg by mouth. - glucagon 3 mg/actuation nasal spray (BAQSIMI) - ondansetron orally disintegrating (ZOFRAN ODT) 4 mg disintegrating tablet Take 4 mg by mouth every 6 hours as needed. - DULCOLAX, BISACODYL, RECTAL by RECTAL route once daily as needed. - dextrose 40 % gel Take 15 g by mouth as needed. - insulin aspart U-100 (NOVOLOG) 100 unit/mL Use via insulin pump Max daily dose 100 units, DX: E10.65 - senna-docusate (SENNA-S) 8.6-50 mg per tablet 1 tablet by ORAL/FEEDING TUBE route two times a day. - lactobacillus rhamnosus (CULTURELLE) 10 billion cell capsule (Discontinued) Take 1 capsule by mouth once daily. Problem List As Of Date 12/11/2024 Noted Resolved Neoplasm of bladder [D49.4] 02/16/2021 Asthma (HCC) [J45.909] 02/16/2021 Essential hypertension [I10] 02/16/2021 Palpitations [R00.2] 02/16/2021 Obesity [E66.9] 02/16/2021 06/11/2022 Diabetes mellitus type I (HCC) [E10.9] Malignant neoplasm of urinary bladder (HCC) [C6*04/20/2021 Small bowel obstruction (HCC) [K56.609] 12/16/2021 12/21/2021 Severe protein-calorie malnutrition (HCC) [E43] 12/20/2021 Hypokalemia [E87.6] 12/21/2021 Hypophosphataemia [E83.39] 12/21/2021 Hyponatremia [E87.1] 01/05/2022 Hypomagnesemia [E83.42] 01/05/2022 Hydronephrosis [N13.30] 01/09/2022 Chronic low back pain without sciatica [M54.50,*03/13/2022 Lesion of lumbar spine [M89.9] 06/10/2022 Spinal cord mass (HCC) [G95.89] 06/15/2022 Unstageable pressure ulcer of sacral region (HC*06/16/2022 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] 09/05/2023 Tibia/fibula fracture, left, closed, initial en*10/07/2023 Dyslipidemia [E78.5] 10/07/2023 10/18/2023 Insulin pump status [Z96.41] 10/07/2023 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*10/07/2023 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] 10/07/2023 Gait abnormality [R26.9] 10/07/2023 ABLA (acute blood loss anemia) [D62] 10/09/2023 Hydrocephalus (HCC) [G91.9] 10/11/2023 Type 1 diabetes mellitus with hyperglycemia (HC*10/11/[address] [Z96.41] 10/11/2023 Recurrent falls [R29.6] 10/11/2023 Pressure injury of left heel, stage 1 [L89.621] 10/12/2023 10/12/2023 Deep tissue injury [T14.8XXA] 10/12/2023 Pressure injury of coccygeal region, stage 2 (H*10/12/2023 10/17/2023 Preop exam for internal medicine [Z01.818] 10/12/2023 10/18/2023 Pressure injury of deep tissue of left heel [L8*10/12/2023 Alteration in self-care ability [R68.89] 10/12/2023 Impaired mobility [Z74.09] 10/12/2023 Risk for falls [Z91.81] 10/12/2023 S/P exploratory laparotomy [Z98.890] 10/12/2023 Pressure injury of deep tissue of left foot [L8*10/17/2023 Long-term insulin use (HCC) [Z79.4] 10/22/2023 Elevated alkaline phosphatase level [R74.8] 02/06/2024 Type 1 diabetes mellitus with hypoglycaemia (HC*02/06/2024 Insulin pump titration [Z46.81] 02/06/2024 Closed fracture of distal end of left femur, un*08/22/2024 MARLENA (acute kidney injury) [N17.9] 08/23/2024 Bilateral edema of lower extremity [R60.0] 08/23/2024 Non heali (more content not included)...[facility]/LAT LTon [id number] FEMUR 2V AP/LAT LT* * *Final Report* * * DATE OF EXAM: Dec 11 2024 1:39PM FGX [id number] - XR FEMUR 2V AP/LAT LT / PROCEDURE REASON: multiple diagnoses * * * * Physician Interpretation * * * * CLINICAL: FRACTURE TECHNIQUE: AP AND LATERAL VIEWS OF THE LEFT FEMUR COMPARISON: 08/12/2024 RESULT: Intramedullary kathleen is seen in the distal femur. There is evidence of prior ORIF of the tibia. Tricompartmental narrowing is present in the visualized knee. IMPRESSION: Status post ORIF of a femur fracture with kathleen and screws and no interval change in alignment or evidence of hardware failure. Laundry Aid: SUMA Transcribe Date/Time: Dec 16 2024 2:31P Dictated by : ENOC DODSON MD This examination was interpreted and the report reviewed and electronically signed by: ENOC DODSON MD on Dec 16 2024 2:33PM EST [id number] Recovery [facility] and [facility] [id number] (EMQ) CHIKIS TOBAR ([id number]) 1965 F Date Time Provider Department 11/28/24 RUDDY GUPTA During your visit today, we recorded the following information about you: Kaylene Godinez 11/28/2024 1:42 PM Addendum [facility] the nurse with [facility] and rehab is calling Ruddy Gupta MD today with concern regarding Patient Question and requesting OV notes and insulin rate be sent to them to continue care for the patient while in the facility Fax insulin rate and notes to [phone] Patient has been identified by name and birthdate. Duration of symptoms: N/A Person calling: Caregiver Call: [phone] Was an appointment scheduled: No Closing statement: Results or non-symptom based questions: Thank you for calling [facility], your call will be returned within the next business day. Glory Pineda RN 12/02/2024 10:12 AM Signed Faxed last office visit notes and circled the insulin basal rate from the notes. Confirmation received. Allergies As of Date: 11/28/2024 Noted Allergy Reaction DEMERAL (MEPERIDINE) 02/09/2021 8 - GI Upset Comments: Nausea, pt states room spins FLEXERIL (CYCLOBENZAPRINE) 02/09/2021 4 - Hives ORPHENADRINE 09/30/2015 14 - Other: See Comments 4 - Hives 2 - Rash VERSED (MIDAZOLAM) 02/18/2021 1 - Mental Status Change Date Reviewed: 10/22/2024 Reviewed by: Paco Balbuena, Enoc BRIGHT MA - Fully Assessed Reason for Visit: Electronic Communication [890] Patient Question [7269] Prescriptions as of 12/02/2024 - DOCUSATE SODIUM PO Take 100 mg by mouth once daily. - FAMOTIDINE PO Take by mouth. - metoprolol tartrate, short acting, (LOPRESSOR) 50 mg tablet Take 50 mg by mouth two times a day. - polyethylene glycol 1450 MW, NF, BASE A, powd - cholecalciferol, vitamin D3, (VITAMIN D3 PO) Take by mouth. - acetaminophen (TYLENOL) 325 mg tablet Take 2 tablets by mouth every 6 hours as needed for pain. - aspirin, enteric coated (ADULT LOW DOSE ASPIRIN) 81 mg EC tablet Take 1 tablet by mouth two times a day for 28 days, THEN 1 tablet two times a day. - metoprolol succinate ER (TOPROL XL) 100 mg Take 0.5 tablets by mouth two times a day. - posaconazole DR (NOXAFIL) 100 mg tablet Take 3 tablets by mouth once daily. - lisinopril (ZESTRIL) 5 mg tablet Take 1 tablet by mouth once daily. - potassium chloride SR (MICRO-K) 10 mEq CR capsule Take 1 capsule by mouth every afternoon. - bumetanide (BUMEX) 1 mg tablet Take 1 tablet by mouth every 12 hours. - cyanocobalamin (VITAMIN B-12) 1,000 mcg tab Take 1,000 mcg by mouth. - glucagon 3 mg/actuation nasal spray (BAQSIMI) - ondansetron orally disintegrating (ZOFRAN ODT) 4 mg disintegrating tablet Take 4 mg by mouth every 6 hours as needed. - DULCOLAX, BISACODYL, RECTAL by RECTAL route once daily as needed. - dextrose 40 % gel Take 15 g by mouth as needed. - insulin aspart U-100 (NOVOLOG) 100 unit/mL Use via insulin pump Max daily dose 100 units, DX: E10.65 - senna-docusate (SENNA-S) 8.6-50 mg per tablet 1 tablet by ORAL/FEEDING TUBE route two times a day. - lactobacillus rhamnosus (CULTURELLE) 10 billion cell capsule (Discontinued) Take 1 capsule by mouth once daily. Problem List As Of Date 11/28/2024 Noted Resolved Neoplasm of bladder [D49.4] 02/16/2021 Asthma (HCC) [J45.909] 02/16/2021 Essential hypertension [I10] 02/16/2021 Palpitations [R00.2] 02/16/2021 Obesity [E66.9] 02/16/2021 06/11/2022 Diabetes mellitus type I (HCC) [E10.9] Malignant neoplasm of urinary bladder (HCC) [C6*04/20/2021 Small bowel obstruction (HCC) [K56.609] 12/16/2021 12/21/2021 Severe protein-calorie malnutrition (HCC) [E43] 12/20/2021 Hypokalemia [E87.6] 12/21/2021 Hypophosphataemia [E83.39] 12/21/2021 Hyponatremia [E87.1] 01/05/2022 Hypomagnesemia [E83.42] 01/05/2022 Hydronephrosis [N13.30] 01/09/2022 Chronic low back pain without sciatica [M54.50,*03/13/2022 Lesion of lumbar spine [M89.9] 06/10/2022 Spinal cord mass (HCC) [G95.89] 06/15/2022 Unstageable pressure ulcer of sacral region (HC*06/16/2022 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] 09/05/2023 Tibia/fibula fracture, left, closed, initial en*10/07/2023 Dyslipidemia [E78.5] 10/07/2023 10/18/2023 Insulin pump status [Z96.41] 10/07/2023 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*10/07/2023 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] 10/07/2023 Gait abnormality [R26.9] 10/07/2023 ABLA (acute blood loss anemia) [D62] 10/09/2023 Hydrocephalus (HCC) [G91.9] 10/11/2023 Type 1 diabetes mellitus with hyperglycemia (HC*10/11/[address] [Z96.41] 10/11/2023 Recurrent falls [R29.6] 10/11/2023 Pressure injury of left heel, stage 1 [L89.621] 10/12/2023 10/12/2023 Deep tissue injury [T14.8XXA] 10/12/2023 Pressure injury of coccygeal region, stage 2 (H*10/12/2023 10/17/2023 Preop exam for internal medicine (more content not included)...[facility] [id number] Visit (INFDMN) AMADOUCHIKIS ([id number]) 1965 F Date Time Provider Department 10/22/24 4:00 PM JAMIE MCCARTY [facility] During your visit today, we recorded the following information about you: Temperature Pulse Respiration Blood pressure 98.3 degrees 80/minute 18/minute 124/57 Weight 78 kg Jamie Mccarty MD 11/19/2024 9:38 PM Addendum INFECTIOUS DISEASES OUTPATIENT FOLLOW-UP NOTE SERVICE DATE: October 22, 2024 Last visit:July 02, 2024 Summary of HPI HPI: 59 year old female with medical history of [...] performed and she was transferred to [facility]. She was found to have DKA. A CT head showed hydrocephalus with MRI on May 29, 2022 showing multiple areas of enhancement in the anterior sabra, medulla, and in the spine at the level of C7-T3 and L1-S2. Multiple taps were performed and were unsuccessful. A 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 was placed and patient underwent a meningeal biopsy 06/26/2022 which pathology showed hyphae elements. PCR sent from multiple tissue samples and CSF next gen sequencing were all negative. She was started on posaconazole to cover molds. While taylor can present with pseudohyphae, it did not grow, with concerns for other molds rather than yeast CT 08/16/2022 Relative normalization of ventricular caliber with resolved asymmetric slit like appearance of the right lateral ventricle with shunt in place since 08/16/2022. Small subdural hygromas over the frontal lobes (8 mm). LFTs 08/16 normal . 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 was adjusted from 4 to 7 Posaconazole level 2.4 on 08/21/22 Developed a facial rash in September 2022, mainly the malar area, a few spots on the forehead. Dx'd with rosacea by PCP and started on metronidazole gel. She was seeing wound care at [facility] for her sacral area ulcer. Rx'd with medical honey gel and silicone bordered foam bandage. Healed over several months At her ID clinic visit 10/18/22 she was doing very well. The rash had improved over malar region with a few papules on forehead. Appeared c/w rosacea, [...] decrease in smal bifrontal convexity subdural hygromas. 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 Has gained wt. Urology felt her urothelial CA was CHRISTINE on surveillance imaging, urine cytology. Continue surveillance imaging q 6 months. [place] remains in place. ID clinic 01/15/23, doing fairly well overall, tolerating posaconazole. Strength improving and ambulatory, using a cane PRN. No 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 issues. Balance has improved but still [...] of antifungals and then reassess with imaging. ID clinic 03/19/23: Seemed to have reached a plateau with her neuro recovery, with stable balance problems and various areas of sensory loss. Neuro exam (more content not included)...[facility]aw[facility] HospitalOffice [facility] (SPWYMN) CHIKIS TOBAR ([id number]) 1965 F Date Time Provider Department 10/22/24 3:00 PM BIANCA LITTLE [facility] During your visit today, we recorded the following information about you: Pulse Blood pressure Weight Height 80/minute 124/57 78 kg 1.676 m Bianca Little PA-C 12/10/2024 11:03 AM Addendum Spine Care Path Neck Pain - Chronic (> 12 weeks) Initial Exam SUBJECTIVE History of Present Illness: Ms. Tobar is a 59 year old female who presents with a chief complaint of neck pain and is seen in consultation requested by Dr. Marlene Cordero for an opinion regarding neck pain. My final recommendations will be communicated back to the requesting physician by way of shared medical record or letter via US mail. Chikis Tobar is a 59-year-old female with a history of type 1 diabetes, fungal meningitis, and bladder cancer, presenting for evaluation of cervical spinal stenosis. Cervical Spinal Stenosis: - Reports heaviness in bilateral lower extremities from the umbilicus down, with associated muscle spasms. - Muscle spasms occur multiple times daily, most relaxed when in a sitting position. - Difficulty standing and walking; requires support from parallel bars. - No neck or back pain. - No numbness or tingling in upper extremities; able to perform all tasks with hands. - No previous spinal surgery on the structure of the spine itself. - Denies any recent lumbar spine imaging. 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 - Currently taking posaconazole. Bladder Cancer: - Diagnosed in 2020; resolved after bladder removal. - Recent follow-up with Dr. Raphael showed swelling around the right kidney and ureter. - Scheduled for an ultrasound in 6 months. Type 1 Diabetes: - Diagnosed at age 6. - Reports four episodes of DKA in 2021. - No previous issues with blood sugar control. PAIN EVALUATION No data found in the last 1 encounters. Patient Entered Questionnaires 10/22/2024 Spine Questions Pain Location: Leg Pain Duration: 6 months - 1 year Pain over last 6 months: Every day or nearly every day in the past 6 months Symptoms from neck/cervical spine: Yes Employment Status: Disabled for reasons other than back pain Involved in law suit/legal claim: No 10/22/2024 Spine Red Flags Any type of cancer: Yes Unexplained fever: No Bowel or bladder disfunction: No Unintentional weight loss: No Osteoporosis: No 10/22/2024 Neck Questionnaires Benzel Modified SIRI Score Incomplete Allergies: ALLERGIES Allergen Reactions Demeral [Meperidine] GI Upset Nausea, pt states room spins Flexeril [Cyclobenz* Hives Orphenadrine Other: See Comments, Hives, Rash Versed [Midazolam] Mental Status Change Medications: DOCUSATE SODIUM PO Take 100 mg by mouth once daily. HYDROcodone-Acetaminophen (NORCO) 10-325 mg per tablet Take 1 tablet by mouth every 4 hours as needed. FAMOTIDINE PO Take by mouth. metoprolol tartrate, short acting, (LOPRESSOR) 50 mg tablet Take 50 mg by mouth two times a day. polyethylene glycol 1450 MW, NF, BASE A, powd cholecalciferol, vitamin D3, (VITAMIN D3 PO) Take by mouth. acetaminophen (TYLENOL) 325 mg tablet Take 2 tablets by mouth every 6 hours as needed for pain. aspirin, enteric coated (ADULT LOW DOSE ASPIRIN) 81 mg EC tablet Take 1 tablet by mouth two times a day for 28 days, THEN 1 tablet two times a day. metoprolol succinate ER (TOPROL XL) 100 mg Take 0.5 tablets by mouth two times a day. posaconazole DR (NOXAFIL) 100 mg tablet Take 3 tablets by mouth once daily. baclofen 10 mg tablet Take 1 tablet by mouth two times a day AND 2 tablets daily at bedtime. potassium chloride SR (MICRO-K) 10 mEq CR capsule Take 1 capsule by mouth every afternoon. bumetanide (BUMEX) 1 mg tablet Take 1 tablet by mouth every 12 hours. cyanocobalamin (VITAMIN B-12) 1,000 mcg tab Take 1,000 mcg by mouth. glucagon 3 mg/actuation nasal spray (BAQSIMI) ondansetron orally disintegrating (ZOFRAN ODT) 4 mg disintegrating tablet Take 4 mg by mouth every 6 hours as needed. DULCOLAX, BISACODYL, RECTAL by RECTAL route once daily as needed. dextrose 40 % gel Take 15 g by mouth as needed. insulin aspart U-100 (NOVOLOG) 100 unit/mL Use via insulin pump Max daily dose 100 units, DX: E10.65 senna-docusate (SENNA-S) 8.6-50 mg per tablet 1 tablet by ORAL/FEEDING TUBE route two times a day. lisinopril (ZESTRIL) 5 mg tablet Take 1 tablet by mouth once daily. [DISCONTINUED] lactobacillus rhamnosus (CULTURELLE) 10 billion cell capsule Take 1 capsule by mouth once daily. Past Medical History: PAST MEDICAL HISTORY Diagnosis Date Asthma (HCC) 02/16/2021 Bladder cancer (HCC) 02/2021 urothelial carcinoma Diabetes mellitus type 1 (HCC) 04/13/2021 diagnosed at age 6 Fracture of tibia 09/2023 HTN (more content not included)...[facility] [id number] Visit (NREUS2) CHIKIS TOBAR ([id number]) 1965 F Date Time Provider Department 10/09/24 2:00 PM MARLENE CORDERO NREUS2 During your visit today, we recorded the following information about you: Pulse Blood pressure 75/minute 120/49 Marlene Cordero PA-C 10/09/2024 1:55 PM Signed Recording using Keelr software for draft documentation of the visit was discussed with the patient/authorized billing customer service representative; all questions welcomed and answered. 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 Chikis's shunt was previously removed at [facility] on 07/10/23 following surgery for bowel obstruction followed by worsening symptoms. Shunt was reimplanted on 10/11/23 with multiple episodes of slit like ventricles and previous hygroma development. At last visit her ventricles were again slit like at setting of 7 and was adjusted back to 8. Chikis saw no significant changes in symptoms after shunt being turned off. She continues to struggle with episodes where her legs feel like electricity going through them and pop up involuntarily. Had surgery last month for fractured leg Focused Exam: Right frontal shunt site examined, no erythema, edema, warmth, or drainage noted. Incisions well approximated without evidence of wound dehiscence. Shunt is palpable. Focused Exam: Right frontal shunt site examined, [...] CN XII: Tongue protrusion full and midline Impression: Chikis Tobar is a pleasant 58 year old female with a history of communicating hydrocephalus. 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 Her shunt was re inserted on 10/11/23 with Certas valve. Chikis has had multiple episodes of slit like ventricles and hygromas with shunt set to 7. At last visit valve was turned to 8 and follow up imaging shows ventricles have relaxed. Continued spasticity in lower extremities without change. Recent fracture of left leg with surgery at [facility]. Outside cervical spine imaging does show cervical stenosis. She states she has never seen the spine team regarding this, consult placed. Follow up in [address] brain Plan: Shunt information Shunt type: Certas Initial settin New settin Marlene Cordero PA-C Referring Provider: MARLENE CORDERO [[id number]] Allergies As of Date: 10/09/2024 Noted Allergy Reaction DEMERAL (MEPERIDINE) 02/09/2021 8 - GI Upset Comments: Nausea, pt states room spins FLEXERIL (CYCLOBENZAPRINE) 02/09/2021 4 - Hives ORPHENADRINE 09/30/2015 14 - Other: See Comments 4 - Hives 2 - Rash VERSED (MIDAZOLAM) 02/18/2021 1 - Mental Status Change Date Reviewed: 10/09/2024 Reviewed by: Taiwo Mcwilliams MA - Fully Assessed Reason for Visit: Established Patient [175] Cmt: CT Follow up Primary Visit Diagnosis:Cervical stenosis of spinal canal [M48.02] Other Visit Diagnosis:Other hydrocephalus (HCC) [G91.8] Order(s):CONSULT TO SPINE SURGERY [[id number]] Order #: [id number]: [address] BRAIN WO IVCON [[id number]] Order #: [id number] FUTURE Prescriptions as of 10/09/2024 - DOCUSATE SODIUM PO Take 100 mg by mouth once daily. - HYDROcodone-Acetaminophen (NORCO) 10-325 mg per tablet Take 1 tablet by mouth every 4 hours as needed. - FAMOTIDINE PO Take by mouth. - metoprolol tartrate, short acting, (LOPRESSOR) 50 mg tablet Take 50 mg by mouth two times a day. - polyethylene glycol 1450 MW, NF, BASE A, powd - cholecalciferol, vitamin D3, (VITAMIN D3 PO) Take by mouth. - acetaminophen (TYLENOL) 325 mg tablet Take 2 tablets by mouth every 6 hours as needed for pain. - aspirin, enteric coated (ADULT LOW DOSE ASPIRIN) 81 mg EC tablet Take 1 tablet by mouth two times a day for 28 days, THEN 1 tablet two times a day. - metoprolol succinate ER (TOPROL XL) 100 mg Take 0.5 tablets by mouth two times a day. - posaconazole DR (NOXAFIL) 100 mg tablet Take 3 tablets by mouth once daily. - lisinopril (ZESTRIL) 5 mg ta (more content not included)...NormalMercy Health Allen HospitalCobalamin (Vitamin B12) [Mass/Vol]on 34-37-3014Bjalctsmqufhnz and review of laboratory resultsNormalCleveland The University of Toledo Medical CenterVITAMIN B12on 52-54-6943Cwhrpoqex (Vitamin B12) [Mass/Vol]449 pg/mL232 - 1245 pg/mL [facility] metabolic 2000 panelOrdered By: Severo Gilmore on 10-02-2024 Anion gap [Moles/Vol]10 mmol/L8 - 15 mmol/LCleveland ClinicCalcium [Mass/Vol] 10.1 mg/dL8.5 - 10.2 mg/dLThe Metrohealth SystemChloride [Moles/Vol]104 mmol/L98 - 107 mmol/LCleveland ClinicCO2 [Moles/Vol]28 mmol/L22 - 30 mmol/LCleveland Clinic Creatinine [Mass/Vol]0.75 mg/dL0.58 - 0.96 mg/dLThe Metrohealth SystemGFR/1.73 sq M.predicted among non-blacks MDRD (S/P/Bld) [Vol rate/Area]92 mL/min/{1.73_m2}- PINFClevelOhioHealth Southeastern Medical CenterComment on above:Estimated Glomerular Filtration Rate (eGFR) is calculated using the 2020 CKD-EPI creatinine equation. This equation utilizes serum creatinine, sex, and age as parameters. The creatinine assay has traceable calibration to isotope dilution-mass spectrometry. Refer to KDIGO guidelines for clinical interpretation. In patients with unstable renal function, e.g. those with acute kidney injury, the eGFRmay not accurately reflect actual GFR.Glucose [Mass/Vol]114 mg/hFKrhz42 - 99 mg/dLThe Metrohealth SystemComment on above:The [place] Diabetes Association (ADA) provides guidance for cutoff values for fasting glucose andrandom glucose. The ADA defines fasting as no [...] Standards of Medical Care in Diabetes 2016, [place] Diabetes Association. Diabetes Care. 2016.39(Suppl 1). Interpretation and review of laboratory resultsAbnormalCleveland ClinicPotassium [Moles/Vol]4.6 mmol/L3.7 - 5.1 mmol/LCleveland ClinicSodium [Moles/Vol]142 mmol/L136 - 144 mmol/LCleveland ClinicUrea nitrogen [Mass/Vol]29 mg/dLHigh7 - 21 mg/dLKettering Health DaytonBacaverna memorial hospital metabolic 2000 panelon 10-02-2024 Anion gap [Moles/Vol]10 mmol/LNormal8-15[facility] on above:Order Comment: Specimen Type: BLOOD SPECIMENOrdering Facility: [facility] Address:[address] [place], [place] [address]Performed By: #### 26406-4 ####[facility] LABCLIA [id number] [place], [place] [address]Sbgsxpu [Mass/Vol]10.1 mg/dLNormal8.5-10.2CBlanchard Valley Health [facility] on above:Order Comment: Specimen Type: BLOOD SPECIMENOrdering Facility: [facility] Address:[address] [id number] By: #### 15450-0 ####[facility] LABCLIA [id number] [place], [place] [address]Kaehwvuu [Moles/Vol]104 mmol/AFxplwi64-910LgxyosigdBrown Memorial Hospital on above: Order Comment: Specimen Type: BLOOD SPECIMENOrdering Facility: [facility] Address:[address] [place], [place] [address]Performed By: #### 87611- 2 ####[facility] LABCLIA [id number] [place], [place] [address]LG1 [Moles/Vol]28 mmol/AKfaymg71-20MesiplduaBrown Memorial Hospital on above:Order Comment: Specimen Type: BLOOD SPECIMENOrdering Facility: [facility] Address:[address] [place], [place] [address]Performed By: #### 35612-6 ####[facility] LABCLIA [id number] [place], [place] [address]Vwfwzxuupu [Mass/Vol]0.75 mg/dL Normal0.58-0.96[facility] on above:Order Comment: Specimen Type: BLOOD SPECIMENOrdering Facility: [facility] Address:[address] [place], [place] [address]Performed By: #### 68240-2 ####[facility] LABIA [id number] [place], [place] [address]Sotxjkofkn and Glomerular filtration rate.predicted panel (S/P/Bld)92 mL/min/1.73m???Normal>=60[facility] on above:Order Comment: Specimen Type: BLOOD SPECIMENOrdering Facility: [facility] Address:[address] [place], [place] [address]Result Comment: Estimated Glomerular Filtration Rate (eGFR) is calculated using the 2020 CKD-EPI creatinine equation. This equation utilizes serum creatinine, sex, and age as parameters. The creatinine assay has traceable calibration to isotope dilution- mass spectrometry. Refer to KDIGO guidelines for clinical interpretation. In patients with unstable renal function, e.g. those with acute kidney injury, the eGFR may not accurately reflect actual GFR.Performed By: #### 16489-8 ####[facility] LABIA [id number] [place], [place] [address]Dcdjdim [Mass/Vol]114 mg/zBGfbk02-64AayuxkdfmBrown Memorial Hospital on above:Order Comment: Specimen Type: BLOOD SPECIMENOrdering Facility: [facility] Address:[address] [place], [place] [address]Result Comment: The [place] Diabetes Association (ADA) provides guidance for cutoff values for fasting glucose and random glucose. The ADA defines fasting as no caloric intake for at least 8 hours. Fasting plasma glucose results between 100 to 125 mg/dL indicate increased risk for diabetes (prediab etes). Fasting plasma glucose results greater than or [...] Standards of Medical Care in Diabetes 2016, [place] Diabetes Association. Diabetes Care. 2016.39(Suppl 1).Performed By: #### 07782-7 ####[facility] LABCLIA [id number] [place], [place] [address]Osweaoxxp [Moles/Vol]4.6 mmol/LNormal3.7-5.1CBlanchard Valley [facility] on above:Order Comment: Specimen Type: BLOOD SPECIMENOrdering Facility: [facility] Address:[address] [place], [place] [address]Performed By: #### 34001-2 ####[facility] LABCLIA [id number] [place], [place] [address]Jmymjk [Moles/Vol]142 mmol/DJrzspw422-498TfngklbckBrown Memorial Hospital on above: Order Comment: Specimen Type: BLOOD SPECIMENOrdering Facility: [facility] Address:[address] [place], [place] [address]Performed By: #### 83814- 2 ####[facility] LABCLIA [id number] [place], [place] [address]Xjkq nitrogen [Mass/Vol]29 mg/dLHigh7-21[facility] on above:Order Comment: Specimen Type: BLOOD SPECIMENOrdering Facility: [facility] Address:[address] [place], [place] [address]Performed By: #### 20624-3 ####[facility] LABCLIA [id number] [place], [place] [address]II CHEST W IVCONon [id number] CHEST W IVCON* * *Final Report* * * DATE OF EXAM: Oct 02 2024 2:29PM [facility] 0539 - CT CHEST W IVCON / PROCEDURE REASON: History of bladder cancer * * * * Physician Interpretation * * * * RESULT: EXAMINATION: CHEST CT WITH CONTRAST CLINICAL HISTORY: Bladder cancer Technique: Spiral CT acquisition of the chest from the thoracic inlet to the upper abdomen following IV contrast. MQ: CTCW_6 Contrast: 100 mL Omnipaque [address] Radiation dose: Integrated Dose-length product (DLP) for this visit = 3233 mGy*cm CT Dose Reduction Employed: Automated exposure control (AEC) Comparison: Chest CT scan(s) dated 08/24/2024 and 03/16/2021 RESULT: Limitations: None. Lines, tubes, and devices: None Lung parenchyma, pleural space and airways: Lungs are clear of focal consolidation. There are multiple scattered solid nodules in both lungs, some of which are minimally larger since the prior exam. For reference, a 4.7 mm perivascular nodule in the medial LEFT upper lobe (image 51) previously measured 2.8 mm. Some of these nodules are new since 03/16/2021. For reference, 4.5 mm perivascular nodule in the RIGHT lower lobe (image 128). Majority of the nodules are unchanged since 2020. Curvilinear atelectasis/scarring is present in the LEFT lower lobe. There is no pleural effusion. The trachea and central airways appear patent, devoid of endobronchial lesion. Lower neck, lymph nodes, and mediastinum: No obvious abnormality in the imaged thyroid gland. Interval enlargement of few mediastinal and hilar lymph nodes. For reference, 10 mm subcarinal node (image 73) previously measured 5 mm, 9 mm RIGHT inferior interlobar level node (image 94) previously measured 6 mm and 8 mm node adjacent to the LEFT inferior pulmonary vein (image 104) previously measured 6 mm. Heart, pericardium, and thoracic vessels: The cardiac chambers are normal in size. There is no pericardial effusion or thickening. The main pulmonary artery is normal in calibre. The thoracic aorta is normal in calibre. The arch branching pattern is normal. No coronary artery calcifications are noted, although the study is not optimized for coronary assessment. Bones and soft tissues: Chest wall soft tissues are unremarkable. Degenerative changes are present in the thoracic spine. There is compression deformity of few thoracic vertebral bodies. Bilateral rib and inferior sternal fractures are again noted. Upper abdomen: The concurrently performed CT abdomen and pelvis will be reported separately. Risk And Insurance Consultant (topogram) images: No additional findings. IMPRESSION: 1. Multiple indeterminate bilateral pulmonary nodules, majority stable since 2020. Few of the nodules are new since 2020. Few nodules are noted in the larger since 08/24/2024. Metastatic disease is not excluded. 2. Interval enlargement of few mediastinal and hilar lymph nodes. Transcribe Date/Time: Oct 04 2024 7:17P Dictated by: ALLI SIMEON MD This examination was interpreted and the report reviewed and electronically signed by: ALLI SIMEON MD on Oct 04 2024 7:30PM EST Thank you for allowing us to participate in the care of your patient. Should there be any questions regarding this interpretation, please call [phone]. If you are unable to reach us at the number above, please feel free to contact [facility] at [phone]. [id number] Clinic [facility] Kidney WO and W contrast [place] [id number]: No recurrent urinary tract mass or abdominopelvic metastatic disease. New moderate right hydroureteronephrosis due to suspected stricture at the ureteral-conduit anastomosis. Transcribe Date/Time: Oct 02 2024 3:12P Dictated by: ANTHONY YOUSESF MD This examination was interpreted and the report reviewed and electronically signed by: ANTHONY YOUSSEF MD on Oct 02 2024 3:26PM EST Thank you for allowing us to participate in the care of your patient. Should there be any questions regarding this interpretation, please call [phone]. If you are unable to reach us at the number above, please feel free to contact [facility] at [phone].DIVISION OF RADIOLOGY* * *Final Report* * * DATE OF EXAM: Oct 02 2024 2:29PM [facility] 0560 - CT UROGRAM WO/W IVCON / PROCEDURE REASON: History of bladder cancer * * * * Physician Interpretation * * * * RESULT: EXAMINATION: CT ABDOMEN AND PELVIS WITHOUT AND WITH IV CONTRAST, INCLUDING EXCRETORY PHASE IMAGING (CT UROGRAM) 3D RECONSTRUCTIONS CLINICAL HISTORY: Bladder cancer status post cystectomy, pelvic lymph node dissection, and ileal conduit urinary diversion on 04/20/2021. Volvulus status post exploratory laparotomy, reduction of volvulus, and right ureteral reimplantation 12/16/2021. TECHNIQUE: CT urogram protocol including unenhanced, renal parenchymal phase and excretory phase renal imaging was obtained following IV contrast. Normal saline was also administered IV. No oral contrast was given. 3D image post-processing was performed and archived at the request of the referring physician, on the CT scanner workstation without concurrent physician supervision. MQ: CTU_2 Contrast: IV: 100 ml of Omnipaque 350 IV Saline: 150 ml of 0.9% NACL Solution Oral Contrast: None CT Radiation dose: Integrated dose-length product (DLP) for this visit = 3233 mGy*cm. CT Dose Reduction Employed: Automated exposure control (AEC) COMPARISON: CT 06/18/2023. RESULT: Kidneys and urinary tract: Right: Moderate right hydroureteronephrosis to the level of focal caliber narrowing at the ureteral-ileal conduit anastomosis just anterior to the iliopsoas muscle (5:95), new since prior CT 06/18/2023. The opacified calices, renal pelvis and ureter are without filling defect. No renal calculus or mass. Left: No renal calculus or mass. The opacified calices, renal pelvis and ureter are normal without dilation, filling defect, or stricture. Bladder: Cystectomy with right lower quadrant ileal conduit. No conduit mass identified. Abdomen and Pelvis: Liver: No mass. Biliary: No bile duct dilation. Gallbladder is unremarkable. Spleen: No mass. No splenomegaly. Pancreas: No mass or duct dilation. Adrenals: No mass. GI tract: No dilation or wall thickening. Lymph nodes: No abdominal or pelvic lymphadenopathy. Mesentery/Peritoneum: No ascites or mass. Retroperitoneum: No mass. Vasculature: - Abdominal aorta and iliac arteries: Atherosclerotic calcifications without aneurysm. - Celiac and SMA: Atherosclerotic calcifications at the origins. - Portal venous system (SMV, splenic vein, portal vein and branches): Patent. - Hepatic veins: Patent. Pelvis: No mass, ascites or fluid collection. Bones and Soft Tissues: Partially imaged left femoral intramedullary kathleen. No suspicious osseous lesion. Lower thorax: A chest CT performed will be reported separately. Localizer images: No additional findings. DIVISION OF RADIOLOGYProvider, [facility] [place] - 10/02/2024 * * *Final Report* * * DATE OF EXAM: Oct 02 2024 2:29PM [facility] 0560 - CT UROGRAM WO/W IVCON / PROCEDURE REASON: History of bladder cancer * * * * Physician Interpretation * * * * RESULT: EXAMINATION: CT ABDOMEN AND PELVIS WITHOUT AND WITH IV CONTRAST, INCLUDING EXCRETORY PHASE IMAGING (CT UROGRAM) 3D RECONSTRUCTIONS CLINICAL HISTORY: Bladder cancer status post cystectomy, pelvic lymph node dissection, and ileal conduit urinary diversion on 04/20/2021. Volvulus status post exploratory laparotomy, reduction of volvulus, and right ureteral reimplantation 12/16/2021. TECHNIQUE: CT urogram protocol including unenhanced, renal parenchymal phase and excretory phase renal imaging was obtained following IV contrast. Normal saline was also administered IV. No oral contrast was given. 3D image post-processing was performed and archived at the request of the referring physician, on the CT scanner workstation without concurrent physician supervision. MQ: CTU_2 Contrast: IV: 100 ml of Omnipaque 350 IV Saline: 150 ml of 0.9% NACL Solution Oral Contrast: None CT Radiation dose: Integrated dose-length product (DLP) for this visit = 3233 mGy*cm. CT Dose Reduction Employed: Automated exposure control (AEC) COMPARISON: CT 06/18/2023. RESULT: Kidneys and urinary tract: Right: Moderate right hydroureteronephrosis to the level of focal caliber narrowing at the ureteral-ileal conduit anastomosis just anterior to the iliopsoas muscle (5:95), new since prior CT 06/18/2023. The opacified calices, renal pelvis and ureter are without filling defect. No renal calculus or mass. Left: No renal calculus or mass. The opacified calices, renal pelvis and ureter are normal without dilation, filling defect, or stricture. Bladder: Cystectomy with right lower quadrant ileal conduit. No conduit mass identified. Abdomen and Pelvis: Liver: No mass. Biliary: No bile duct dilation. Gallbladder is unremarkable. Spleen: No mass. No splenomegaly. Pancreas: No mass or duct dilation. Adrenals: No mass. GI tract: No dilation or wall thickening. Lymph nodes: No abdominal or pelvic lymphadenopathy. Mesentery/Peritoneum: No ascites or mass. Retroperitoneum: No mass. Vasculature: - Abdominal aorta and iliac arteries: Atherosclerotic calcifications without aneurysm. - Celiac and SMA: Atherosclerotic calcifications at the origins. - Portal venous system (SMV, splenic vein, portal vein and branches): Patent. - Hepatic veins: Patent. Pelvis: No mass, ascites or fluid collection. Bones and Soft Tissues: Partially imaged left femoral intramedullary kathleen. No suspicious osseous lesion. Lower thorax: A chest CT performed will be reported separately. Localizer images: No additional findings. IMPRESSION IMPRESSION: No recurrent urinary tract mass or abdominopelvic metastatic disease. New moderate right hydroureteronephrosis due to suspected stricture at the ureteral-conduit anastomosis. Transcribe Date/Time: Oct 02 2024 3:12P Dictated by: ANTHONY YOUSSEF MD This examination was interpreted and the report reviewed and electronically signed by: ANTHONY YOUSSEF MD on Oct 02 2024 3:26PM EST Thank you for allowing us to participate in the care of your patient. Should there be any questions regarding this interpretation, please call [phone]. If you are unable to reach us at the number above, please feel free to contact [facility] at [phone]. [facility] SystemRad[facility] Study observation (narrative)[facility] Kidney WO and W contrast IVOrdered By: [facility] Provider on [id number] ClinicCT UROGRAM WO/W IVCONon [id number] UROGRAM WO/W IVCON* * *Final Report* * * DATE OF EXAM: Oct 02 2024 2:29PM [facility] 0560 - CT UROGRAM WO/W IVCON / PROCEDURE REASON: History of bladder cancer * * * * Physician Interpretation * * * * RESULT: EXAMINATION: CT ABDOMEN AND PELVIS WITHOUT AND WITH IV CONTRAST, INCLUDING EXCRETORY PHASE IMAGING (CT UROGRAM) 3D RECONSTRUCTIONS CLINICAL HISTORY: Bladder cancer status post cystectomy, pelvic lymph node dissection, and ileal conduit urinary diversion on 04/20/2021. Volvulus status post exploratory laparotomy, reduction of volvulus, and right ureteral reimplantation 12/16/2021. TECHNIQUE: CT urogram protocol including unenhanced, renal parenchymal phase and excretory phase renal imaging was obtained following IV contrast. Normal saline was also administered IV. No oral contrast was given. 3D image post-processing was performed and archived at the request of the referring physician, on the CT scanner workstation without concurrent physician supervision. MQ: CTU_2 Contrast: IV: 100 ml of Omnipaque 350 IV Saline: 150 ml of 0.9% NACL Solution Oral Contrast: None CT Radiation dose: Integrated dose-length product (DLP) for this visit = 3233 mGy*cm. CT Dose Reduction Employed: Automated exposure control (AEC) COMPARISON: CT 06/18/2023. RESULT: Kidneys and urinary tract: Right: Moderate right hydroureteronephrosis to the level of focal caliber narrowing at the ureteral-ileal conduit anastomosis just anterior to the iliopsoas muscle (5:95), new since prior CT 06/18/2023. The opacified calices, renal pelvis and ureter are without filling defect. No renal calculus or mass. Left: No renal calculus or mass. The opacified calices, renal pelvis and ureter are normal without dilation, filling defect, or stricture. Bladder: Cystectomy with right lower quadrant ileal conduit. No conduit mass identified. Abdomen and Pelvis: Liver: No mass. Biliary: No bile duct dilation. Gallbladder is unremarkable. Spleen: No mass. No splenomegaly. Pancreas: No mass or duct dilation. Adrenals: No mass. GI tract: No dilation or wall thickening. Lymph nodes: No abdominal or pelvic lymphadenopathy. Mesentery/Peritoneum: No ascites or mass. Retroperitoneum: No mass. Vasculature: - Abdominal aorta and iliac arteries: Atherosclerotic calcifications without aneurysm. - Celiac and SMA: Atherosclerotic calcifications at the origins. - Portal venous system (SMV, splenic vein, portal vein and branches): Patent. - Hepatic veins: Patent. Pelvis: No mass, ascites or fluid collection. Bones and Soft Tissues: Partially imaged left femoral intramedullary kathleen. No suspicious osseous lesion. Lower thorax: A chest CT performed will be reported separately. Localizer images: No additional findings. IMPRESSION: No recurrent urinary tract mass or abdominopelvic metastatic disease. New moderate right hydroureteronephrosis due to suspected stricture at the ureteral-conduit anastomosis. Transcribe Date/Time: Oct 02 2024 3:12P Dictated by: ANTHONY YOUSSEF MD This examination was interpreted and the report reviewed and electronically signed by: ANTHONY YOUSSEF MD on Oct 02 2024 3:26PM EST Thank you for allowing us to participate in the care of your patient. Should there be any questions regarding this interpretation, please call [phone]. If you are unable to reach us at the number above, please feel free to contact [facility] at [phone]. [id number] Health Allen HospitalLaboratory - Chemistry and Chemistry - challengeOrdered By: Molly Hendrickson on 04-75-3347Rfmazpi [Mass/Vol]10.1 mg/dL8.5-10.2FLancaster Municipal HospitalChloride [Moles/Vol]104 mmol/L 98-107[facility] HospitalCO2 [Moles/Vol]28 mmol/M31-51MvrrhxtpvTwin City HospitalCobalamin (Vitamin B12) [Mass/Vol]449 pg/aA253-2912 [facility] HospitalCreatinine [Mass/Vol]0.75 mg/dL0.58-0.96 [facility] HospitalGlucose [Mass/Vol]114 mg/dIHgli85-85OdzjbihcjTwin City HospitalComment on above:The [place] Diabetes Association (ADA) provides guidance for cutoff values for fasting glucose andrandom glucose. The ADA defines fasting as no caloric intake for at least 8 hours. Fasting plasma gl ucose results between 100 to 125 mg/dL indicate increased risk for diabetes (prediabetes).Fasting plasma glucose results greater than or equal to 126 mg/dL meet the criteria for diagnosis of diabetes. In the absence of unequivocal hyperglycemia, results should be confirmed by repeat testing. In a patient with classic symptoms of hyperglycemia or hyperglycemic crisis, random plasma glucose resultsgreater than or equal to 200 mg/dL meet the criteria for diagnosis of diabetes.Reference: [employer] in Diabetes 2016, [place] Diabetes Association. Diabetes Care. 2016.39(Suppl 1).Potassium [Moles/Vol]4.6 mmol/L 3.7-5.1FTriHealthodium [Moles/Vol]142 mmol/I599-420 [facility] HospitalUrea nitrogen [Mass/Vol]29 mg/dLHigh7-21 [facility] HospitalNo Panel InformationOrdered By: Molly Hendrickson on 19-33-7283Jwmtuliyr GFR (CKD-EPI)92 mL/min/1.73m???>=60[facility] City HospitalComment on above:Estimated Glomerular Filtration Rate (eGFR) is calculated using the 2020 CKD-EPI creatinine equation. This equation utilizes serum creatinine, sex, and age as parameters. The creatinine assay has traceable calibration to isotope dilution-mass spectrometry. Refer to KDIGO guidelines for clinical interpretation. In patients with unstable renal function, e.g. those with acute kidney injury, the eGFRmay not accurately reflect actual GFR. Serum or plasma anion gap determinationOrdered By: Molly Hendrickson on 31-92-8677Gzbpq gap [Moles/Vol]10 mmol/L8-15[facility] HospitalVit B12 SerPl-mCnc on 40-57-6477Vypebgggg (Vitamin B12) [Mass/Vol]449 pg/uRPfddzf441-8562Tlsnrntur Clinic ClevelandComment on above:Order Comment: Specimen Type: BLOOD SPECIMENOrdering Facility: [facility] Address:[address] [place], [place] [address]Performed By: #### 2132-9 ####[facility] LABCLIA [id number] [place] [address] [place] OF AMERICABasic Metabolic Panelon 82-11-7113Ymuej gap [Moles/Vol]9 mmol/LNormal9-15 [facility] HospitalComment on above:Performed By: #### PGLU #### [facility] [address] [place] [address] Sasvpzx [Mass/Vol]8.5 mg/dLNormal8.5-9.9[facility] HospitalComment on above:Performed By: #### PGLU #### [facility] [address] [place] [address] Itkvpwtp [Moles/Vol]103 mmol/GQmsimu71-112PniceUchealth Highlands Ranch HospitalComment on above:Performed By: #### PGLU #### [facility] [address] [place] [address] UP8 [Moles/Vol]27 mmol/OVnptln16-14EafjjUchealth Highlands Ranch Hospital Comment on above:Performed By: #### PGLU #### [facility] [address] [place] [address] Wjyijcatam [Mass/Vol]0.90 mg/dLNormal0.50-0.90[facility] HospitalComment on above:Performed By: #### PGLU #### [facility] [address] [place] [address] GVW53.0Normal>60[facility] HospitalComment on above:Result Comment: Pediatric calculator link https://www.kidney.org/professionals/kdoqi/gfr_calculatorped Effective Jan 16, [...] or following therapy that affects renal tubular secretion.Performed By: #### PGLU #### [facility] [address] [place] [address] Mawnlbr [Mass/Vol]135 mg/dLCritically piov52-99VwubvKeefe Memorial HospitalComment on above:Performed By: #### PGLU #### [facility] [address] [place] [address] Nqbkkjdbq [Moles/Vol]4.7 mmol/LNormal3.4-4.9[facility] HospitalComment on above:Performed By: #### PGLU #### [facility] [address] [place] [address] Yubxvu [Moles/Vol]139 mmol/FMhfcdk785-587XtstcUchealth Highlands Ranch HospitalComment on above:Performed By: #### PGLU #### [facility] [address] [place] [address] Kybc nitrogen [Mass/Vol]32 mg/dLCritically high6-20[facility] HospitalComment on above:Performed By: #### PGLU #### [facility] [address] [place] [address] MSY With Platelet and Differentialon 62-30-8883Jhwkfdyjp (Bld) [#/Vol]0.0 10*3/uLNormal0.0-0.2MKeefe Memorial HospitalComment on above: Performed By: #### CBCWD #### [facility] [address] [place] [address] Qguqqabyf/100 WBC (Bld)0.4 %[facility] Comment on above:Performed By: #### CBCWD #### [facility] [address] [place] [address] Qkqufswjviy (Bld) [#/Vol]0.1 10*3/uLNormal0.0-0.7[facility] HospitalComment on above:Performed By: #### CBCWD #### [facility] [address] [place] [address] Wkwrujikrdb/100 WBC (Bld)2.3 %[facility] Comment on above:Performed By: #### CBCWD #### [facility] [address] [place] [address] Ptojfqakbuu distribution width (RBC) [Ratio]14.8 %Critically high 11.5-14.5[facility] HospitalComment on above:Performed By: #### CBCWD #### [facility] [address] [place] [address] Oivywglevn (Bld) [Volume fraction]30.2 %Low37.0-47.0[facility] HospitalComment on above:Performed By: #### CBCWD #### [facility] [address] [place] [address] Oxsbzonkci (Bld) [Mass/Vol]9.6 g/dLLow12.0-16.0[facility] HospitalComment on above:Performed By: #### CBCWD #### [facility] [address] [place] [address] Xahklgnewiw (Bld) [#/Vol]1.0 10*3/uLNormal1.0-4.8[facility] HospitalComment on above:Performed By: #### CBCWD #### [facility] [address] [place] [address] Fdgoeolpdxu/100 WBC (Bld)21.8 %[facility] Comment on above:Performed By: #### CBCWD #### [facility] [address] [place] [address] UZZ (RBC) [Entitic mass]30.0 rcDqqshn64.0-31.3MKeefe Memorial HospitalComment on above:Performed By: #### CBCWD #### [facility] [address] [place] [address] EIWS58.8 %Low33.0-37.0[facility] HospitalComment on above: Performed By: #### CBCWD #### [facility] [address] [place] [address] TDM (RBC) [Entitic vol]94.4 vIZtbkyf59.4-94.8[facility] HospitalComment on above:Performed By: #### CBCWD #### [facility] [address] [place] [address] Omzpydegd (Bld) [#/Vol]0.5 10*3/uLNormal0.2-0.8[facility] HospitalComment on above:Performed By: #### CBCWD #### [facility] [address] [place] [address] Lpcqlupcv/100 WBC (Bld)11.3 %[facility] Comment on above:Performed By: #### CBCWD #### [facility] [address] [place] [address] Uasqcicwunl (Bld) [#/Vol]3.0 10*3/uLNormal1.4-6.5[facility] HospitalComment on above:Performed By: #### CBCWD #### [facility] [address] [place] [address] Hssnlyvsuxo/100 WBC (Bld)63.8 %NormalUchealth Highlands Ranch Hospital Comment on above:Performed By: #### CBCWD #### [facility] [address] [place] [address] Zdflmqnwy (Bld) [#/Vol]361 10*3/pQTsrkgd553-647GerfiUchealth Highlands Ranch HospitalComment on above:Performed By: #### CBCWD #### [facility] [address] [place] [address] LHT (Bld) [#/Vol]3.20 10*6/uLLow4.20-5.40[facility] HospitalComment on above:Performed By: #### CBCWD #### [facility] [address] [place] [address] BIH (Bld) [#/Vol]4.8 10*3/uLNormal4.8-10.8[facility] HospitalComment on above:Performed By: #### CBCWD #### [facility] [address] [place] [address] EDLN Glucoseon 66-65-3500Gzoirgj [Mass/Vol]91 mg/vLPwduwc63-45Bozuj[address] [place], [place] [address]Comment on above:Performed By: #### PGLU #### [facility] [address] [place] [address] VRA Performed onACCU-CHEKNormalUchealth Highlands Ranch HospitalComment on above:Performed By: #### PGLU #### [facility] [address] [place] [address] Carbbqr [Mass/Vol]165 mg/dLCritically fetb30-80BbclcKeefe Memorial HospitalComment on above:Performed By: #### PGLU #### [facility] [address] [place] [address] KVS Performed onPresbyterian/St. Luke's Medical CenterComment on above:Performed By: #### PGLU #### [facility] [address] [place] [address] CKHC Glucoseon 05-76-3681Bffklsj [Mass/Vol]150 mg/dLCritically high 70-[address] [place], [place] [address]Comment on above:Performed By: #### CBCWD #### [facility] [address] [place] [address] YXP Performed onPresbyterian/St. Luke's Medical CenterComment on above:Performed By: #### CBCWD #### [facility] [address] [place] [address] Kkwjlkg [Mass/Vol]109 mg/dLCritically gbur44-40Riyrq[address] [place], [place] [address]Comment on above:Performed By: #### PGLU #### [facility] [address] [place] [address] GTN Performed onPresbyterian/St. Luke's Medical CenterComment on above:Performed By: #### PGLU #### [facility] [address] [place] [address] Eviipre [Mass/Vol]186 mg/dLCritically ncfe20-87Akyjo[address] [place], [place] [address]Comment on above:Performed By: #### PGLU #### [facility] [address] [place] [address] BGL Performed onPresbyterian/St. Luke's Medical CenterComment on above:Performed By: #### PGLU #### [facility] [address] [place] [address] Xhjnuma [Mass/Vol]89 mg/xHGqhuow38-21Kkbcu[address] [place] [address] Comment on above:Performed By: #### PGLU #### [facility] [address] [place] [address] UDG Performed onPresbyterian/St. Luke's Medical CenterComment on above:Performed By: #### PGLU #### [facility] [address] [place] [address] KNKW Glucoseon 12-06-3036Iwepgig [Mass/Vol]115 mg/dLCritically high 70-[address] [place], [place] [address]Comment on above:Performed By: #### PGLU #### [facility] [address] [place] [address] XYH Performed onPresbyterian/St. Luke's Medical CenterComment on above:Performed By: #### PGLU #### [facility] [address] [place] [address] Lmdbitz [Mass/Vol]123 mg/dLCritically zhit54-84Kgpxz[address] [place], [place] [address]Comment on above:Performed By: #### PGLU #### [facility] [address] [place] [address] VDF Performed onPresbyterian/St. Luke's Medical CenterComment on above:Performed By: #### PGLU #### [facility] [address] [place] [address] Jviyjth [Mass/Vol]137 mg/dLCritically vftr42-26Ortma[address] [place], [place] [address]Comment on above:Performed By: #### PGLU #### [facility] [address] [place] [address] JKA Performed onPresbyterian/St. Luke's Medical CenterComment on above:Performed By: #### PGLU #### [facility] [address] [place] [address] Bgbcppk [Mass/Vol]137 mg/dLCritically qbqd22-60Wfmga[address] [place], [place] [address]Comment on above:Performed By: #### PGLU #### [facility] [address] [place] [address] DWA Performed [facility] HospitalComment on above:Performed By: #### PGLU #### [facility] [address] [place] [address] Ybpmupfye susceptibility panel by Guillermo [id number] susceptibility panel DANA (Isol)ORDER#: [id number] ORDERED BY: CONCEPCIÓN WAGNER SOURCE: Urine Clean Catch COLLECTED: 09/15/24 15:17 ANTIBIOTICS AT [facility].: RECEIVED : 09/15/24 15:17 Culture, Urine FINAL 09/17/24 22:27 Performed at [address], [place] [id number] ([phone] Proteus mirabilis 50 TO 100,000 CFU/ML P. mirabilis ANTIBIOTICS DANA Interp Ampicillin <=2 S Cefazolin 8 S D1 Ceftriaxone <=0.25 S Gentamicin <=1 S Levofloxacin <=0.12 S Nitrofurantoin 128 R Piperacillin/Tazobactam <=4 S Trimethoprim/Sulfamethoxazole <=20 S -----DRUG COMMENTS D1: Cefazolin sensitivity results can be used to predict the effectiveness of oral cephalosporins (eg. Cephalexin) in uncomplicated Urinary Tract Infections due to E. coli, K. pneumoniae, and P. mirabilis S=SUSCEPTIBLE I=INTERMEDIATE R=RESISTANT [facility] CenterComment on above:Performed By: #### PGLU #### [facility] [address] [place] [address] Rjmai Metabolic Panelon 07-91-4050Rlztd gap [Moles/Vol]6 mmol/LLow 9-15[facility] HospitalComment on above:Performed By: #### PGLU #### [facility] [address] [place] [address] Eecmsnx [Mass/Vol]8.9 mg/dLNormal8.5-9.9[facility] HospitalComment on above:Performed By: #### PGLU #### [facility] [address] [place] [address] Hqavoydz [Moles/Vol]104 mmol/ZBikeov54-682FnmakUchealth Highlands Ranch HospitalComment on above:Performed By: #### PGLU #### [facility] [address] [place] [address] YE5 [Moles/Vol]28 mmol/BZptixi13-42TizzxUchealth Highlands Ranch Hospital Comment on above:Performed By: #### PGLU #### [facility] [address] [place] [address] Gxsdhzruuq [Mass/Vol]0.53 mg/dLNormal0.50-0.90[facility] HospitalComment on above:Performed By: #### PGLU #### [facility] [address] [place] [address] NCO>90.0Normal>60[facility] HospitalComment on above: Result Comment: Pediatric calculator link https://www.kidney.org/professionals/kdoqi/gfr_calculatorped Effective Jan 16, [...] or following therapy that affects renal tubular secretion.Performed By: #### PGLU #### [facility] [address] [place] [address] Txcszuj [Mass/Vol]118 mg/dLCritically iklo37-63JpzliKeefe Memorial HospitalComment on above:Performed By: #### PGLU #### [facility] [address] [place] [address] Fsnfdvqza [Moles/Vol]4.3 mmol/LNormal3.4-4.9[facility] HospitalComment on above:Performed By: #### PGLU #### [facility] [address] [place] [address] Yuvych [Moles/Vol]138 mmol/XRcwapf303-283EopeeUchealth Highlands Ranch HospitalComment on above:Performed By: #### PGLU #### [facility] [address] [place] [address] Cvet nitrogen [Mass/Vol]28 mg/dLCritically high6-20[facility] HospitalComment on above:Performed By: #### PGLU #### [facility] [address] [place] [address] FRI With Platelet and Differentialon 82-25-2861Auztjibkw (Bld) [#/Vol]0.0 10*3/uLNormal0.0-0.2MKeefe Memorial HospitalComment on above: Performed By: #### CBCWD #### [facility] [address] [place] [address] Tmqogegbx/100 WBC (Bld)0.5 %NormalUchealth Highlands Ranch Hospital Comment on above:Performed By: #### CBCWD #### [facility] [address] [place] [address] Gefzkxdjoxe (Bld) [#/Vol]0.1 10*3/uLNormal0.0-0.7[facility] HospitalComment on above:Performed By: #### CBCWD #### [facility] [address] [place] [address] Dqhwouivxis/100 WBC (Bld)2.5 %[facility] Comment on above:Performed By: #### CBCWD #### [facility] [address] [place] [address] Nyzalkxmwrk distribution width (RBC) [Ratio]14.8 %Critically high 11.5-14.5[facility] Highlands Ranch HospitalComment on above:Performed By: #### CBCWD #### [facility] [address] [place] [address] Krqqoucyjp (Bld) [Volume fraction]31.7 %Low37.0-47.0[facility] HospitalComment on above:Performed By: #### CBCWD #### [facility] [address] [place] [address] Iacrkfuipp (Bld) [Mass/Vol]9.9 g/dLLow12.0-16.0[facility] Ranch HospitalComment on above:Performed By: #### CBCWD #### [facility] [address] [place] [address] Jgmhrueckvy (Bld) [#/Vol]1.0 10*3/uLNormal1.0-4.8[facility] HospitalComment on above:Performed By: #### CBCWD #### [facility] [address] [place] [address] Rkjudeeijkm/100 WBC (Bld)23.1 %[facility] Comment on above:Performed By: #### CBCWD #### [facility] [address] [place] [address] CLO (RBC) [Entitic mass]29.6 tmWbhmzm88.0-31.3MKeefe Memorial HospitalComment on above:Performed By: #### CBCWD #### [facility] [address] [place] [address] JFID45.2 %Low33.0-37.0[facility] Highlands Ranch HospitalComment on above: Performed By: #### CBCWD #### [facility] [address] [place] [address] FKC (RBC) [Entitic vol]94.9 fLCritically high79.4-94.8[facility] HospitalComment on above:Performed By: #### CBCWD #### [facility] [address] [place] [address] Gmfdxxsby (Bld) [#/Vol]0.5 10*3/uLNormal0.2-0.8[facility] HospitalComment on above:Performed By: #### CBCWD #### [facility] [address] [place] [address] Bosvquuck/100 WBC (Bld)11.1 %[facility] Comment on above:Performed By: #### CBCWD #### [facility] [address] [place] [address] Irywgcynpoe (Bld) [#/Vol]2.7 10*3/uLNormal1.4-6.5[facility] HospitalComment on above:Performed By: #### CBCWD #### [facility] [address] [place] [address] Mspnoejzusw/100 WBC (Bld)62.6 %[facility] Comment on above:Performed By: #### CBCWD #### [facility] [address] [place] [address] Bhnvmvftr (Bld) [#/Vol]412 10*3/uLCritically gcbh873-869PfeszUchealth Highlands Ranch HospitalComment on above:Performed By: #### CBCWD #### [facility] [address] [place] [address] QIW (Bld) [#/Vol]3.34 10*6/uLLow4.20-5.40[facility] HospitalComment on above:Performed By: #### CBCWD #### [facility] [address] [place] [address] NOH (Bld) [#/Vol]4.3 10*3/uLLow4.8-10.8[facility] Comment on above:Performed By: #### CBCWD #### [facility] [address] [place] [address] Mkojxve, Urineon 55-51-9822Oxcfleq, UrineORDER#: [id number] ORDERED BY: CONCEPCIÓN WAGNER SOURCE: Urine Clean Catch COLLECTED: 09/15/24 15:17 ANTIBIOTICS AT [facility].: RECEIVED : 09/15/24 15:17 Culture, Urine PRELIM 09/16/24 23:14 Performed at [address] [address] ([phone] Proteus mirabilis 50 TO 100,000 CFU/MLNMelissa Memorial HospitalComment on above: Performed By: #### PGLU #### [facility] [address] [place] [address] HMAJ Glucoseon 61-36-8301Mmqtzit [Mass/Vol]103 mg/dLCritically high 70-99MKeefe Memorial HospitalComment on above:Performed By: #### CBCWD #### [facility] [address] [place] [address] XGY Performed onRED LAKE INDIAN HEALTH SERVICES HOSPITALU-Presbyterian/St. Luke's Medical CenterComment on above:Performed By: #### CBCWD #### [facility] [address] [place] [address] Siiajpx [Mass/Vol]140 mg/dLCritically giwj78-48HlsquKeefe Memorial HospitalComment on above:Performed By: #### CBCWD #### [facility] [address] [place] [address] YUF Performed onRED LAKE INDI[facility]ALTH SERVICES HOSPITALU-Presbyterian/St. Luke's Medical CenterComment on above:Performed By: #### CBCWD #### [facility] [address] [place] [address] Wwvjjot [Mass/Vol]134 mg/dLCritically nzuh71-75Tyhdw[address] [place], [place] [address]Comment on above:Performed By: #### PGLU #### [facility] [address] [place] [address] AMU Performed [facility] HospitalComment on above:Performed By: #### PGLU #### [facility] [address] [place] [address] Dtfusbi [Mass/Vol]122 mg/dLCritically naji63-96Trnxk[address] [place], [place] [address]Comment on above:Performed By: #### PGLU #### [facility] [address] [place] [address] IEL Performed onPresbyterian/St. Luke's Medical CenterComment on above:Performed By: #### PGLU #### [facility] [address] [place] [address] Mrasujpfad, reflex to cultureon [id number] Reflexed to Culture [facility] - NorthglennComment on above:Performed By: #### CBCWD #### [facility] [address] [place] [address] Tdocaslxz Ql (U)NegativeNormalNegativeUchealth Highlands Ranch Hospital Comment on above:Performed By: #### CBCWD #### [facility] [address] [place] [address] Ikdmsfv (U)ClearNormalClearUchealth Highlands Ranch HospitalComment on above:Performed By: #### CBCWD #### [facility] [address] [place] [address] Kmydj (U)YellowNormalStraw/YellUchealth Highlands Ranch HospitalComment on above:Performed By: #### CBCWD #### [facility] [address] [place] [address] Rjfzhil Ql (U)NegativeNormalNegativeMercy Regional Medical Center Comment on above:Performed By: #### CBCWD #### [facility] [address] [place] [address] Tkuivcgifz Ql (U)[facility] Comment on above:Performed By: #### CBCWD #### [facility] [address] [place] [address] Qkzzhko Ql (U)[facility] Comment on above:Performed By: #### CBCWD #### [facility] [address] [place] [address] Zssqhaafy esterase Test strip Ql (U)[facility] CenterComment on above:Performed By: #### CBCWD #### [facility] [address] [place] [address] Mhjbchy Ql (U)[facility] Comment on above:Performed By: #### CBCWD #### [facility] [address] [place] [address] wG (U)7.5 [pH]Normal5.0-9.0[facility] HospitalComment on above:Performed By: #### CBCWD #### [facility] [address] [place] [address] Ulhrzlz Ql (U)[facility] Comment on above:Performed By: #### CBCWD #### [facility] [address] [place] [address] Yjjluodw gravity (U) [Rel density]1.846Wwdpqp2.005-1.03[facility] HospitalComment on above:Performed By: #### CBCWD #### [facility] [address] [place] [address] Ozqdlpfzglag Qn (U)0.2 {Ancelmo'U}/dLNormal< 2.0[facility] HospitalComment on above:Performed By: #### CBCWD #### [facility] [address] [place] [address] Uritm Microscopicon 37-01-6305Qkbhnzlg LM.HPF (Urine sed) [#/Area] NegativeNormalNegativeUchealth Highlands Ranch HospitalComment on above:Performed By: #### PGLU #### [facility] [address] [place] [address] Rotll Epithelial Cells Csjt1-3Icvblx1-6Lkpef[address] Comment on above:Performed By: #### PGLU #### [facility] [address] [place] [address] Askxk Hyaline Casts Awxr1-3Gqsnxr3-2Sfdqy[address] [place] [address] Comment on above:Performed By: #### PGLU #### [facility] [address] [place] [address] Qwyjn RBC Loqj65-36Kjkedzjs3-9Ytbhj14 [address] StreetComment on above:Performed By: #### PGLU #### [facility] [address] [place] [address] Fcghq WBC Iqsf34-41Dqzxphli3-6Ffqhh14 [address] StreetComment on above:Performed By: #### PGLU #### [facility] [address] [place] [address] KREA Glucoseon 45-30-0747Fqhjzne [Mass/Vol]103 mg/dLCritically high 70-99MKeefe Memorial HospitalComment on above:Performed By: #### CBCWD #### [facility] [address] [place] [address] PNZ Performed onACCU-CHEKNormalUchealth Highlands Ranch HospitalComment on above:Performed By: #### CBCWD #### [facility] [address] [address] Bqgcjuo [Mass/Vol]146 mg/dLCritically kofd78-19HzidpKeefe Memorial HospitalComment on above:Performed By: #### PGLU #### [facility] [address] [place] [address] QDY Performed onRED LAKE INDIAN HEALTH SERVICES HOSPITALUMcKee Medical CenterComment on above:Performed By: #### PGLU #### [facility] [address] [place] [address] Dxzmfmf [Mass/Vol]156 mg/dLCritically kllk10-96ThzfgKeefe Memorial HospitalComment on above:Performed By: #### PGLU #### [facility] [address] [place] [address] NBN Performed onRED LAKE INDIAN HEALTH SERVICES HOSPITALU-Presbyterian/St. Luke's Medical CenterComment on above:Performed By: #### PGLU #### [facility] [address] [place] [address] Iabqgyi [Mass/Vol]113 mg/dLCritically fvqi72-84XfvvhKeefe Memorial HospitalComment on above:Performed By: #### PGLU #### [facility] [address] [place] [address] CFX Performed onRED LAKE INDIAN HEALTH SERVICES HOSPITALU-Presbyterian/St. Luke's Medical CenterComment on above:Performed By: #### PGLU #### [facility] [address] [place] [address] VAIX Glucoseon 99-67-9777Pgzwdwl [Mass/Vol]151 mg/dLCritically high 70-[address] [place], [place] [address]Comment on above:Performed By: #### PGLU #### [facility] [address] [place] [address] BGF Performed onRED LAKE INDI[facility] HEALTH SERVICES HOSPITALUMcKee Medical CenterComment on above:Performed By: #### PGLU #### [facility] [address] [place] [address] Dbtywnn [Mass/Vol]111 mg/dLCritically iecj83-16GekqdKeefe Memorial HospitalComment on above:Performed By: #### PGLU #### [facility] [address] [place] [address] EPK Performed onPresbyterian/St. Luke's Medical CenterComment on above:Performed By: #### PGLU #### [facility] [address] [place] [address] OYSVjn 22-31-3720IXHHLlzitqmyi (HEMTSA) CHIKIS TOBAR ([id number]) 1965 F Date Time Provider Department 09/12/24 MOLLY HENDRICKSON During your visit today, we recorded the following information about you: Marlena Anaya RN 09/12/2024 2:[address] new orders for Chest CT with IV contrast and Urogram w/wo IV contrast. Current order will be 1 year old and before pt has scans Thank You! Marlena Anaya RN Allergies As of Date: 09/12/2024 Noted Allergy Reaction DEMERAL (MEPERIDINE) 02/09/2021 8 - GI Upset Comments: Nausea, pt states room spins FLEXERIL (CYCLOBENZAPRINE) 02/09/2021 4 - Hives ORPHENADRINE 09/30/2015 14 - Other: See Comments 4 - Hives 2 - Rash VERSED (MIDAZOLAM) 02/18/2021 1 - Mental Status Change Date Reviewed: 09/11/2024 Reviewed by: Anita Maxwell MA - Fully Assessed Reason for Visit: Radiology CT [1480] Prescriptions as of 09/12/2024 - iv contrast (will be provided with radiology [...] in the CT contrast administration guidelines link. - 0.9 % sodium chloride (NACL 0.9%) infusion Administer at rate defined per CT contrast administration specifications. To be provided with radiology test. - iv contrast (will be provided with radiology [...] according to line specific nursing protocol in theCT contrast administration guidelines link. - acetaminophen (TYLENOL) 325 mg tablet Take 2 tablets by mouth every 6 hours as needed for pain. - aspirin, enteric coated (ADULT LOW DOSE ASPIRIN) 81 mg EC tablet Take 1 tablet by mouth two times a day for 28 days, THEN 1 tablet two times a day. - metoprolol succinate ER (TOPROL XL) 100 mg Take 0.5 tablets by mouth two times a day. - posaconazole DR (NOXAFIL) 100 mg tablet Take 3 tablets by mouth once daily. - lisinopril (ZESTRIL) 5 mg tablet Take 1 tablet by mouth once daily. - baclofen 10 mg tablet Take 1 tablet by mouth two times a day AND 2 tablets daily at bedtime. - potassium chloride SR (MICRO-K) 10 mEq CR capsule Take 1 capsule by mouth every afternoon. - bumetanide (BUMEX) 1 mg tablet Take 1 tablet by mouth every 12 hours. - cyanocobalamin (VITAMIN B-12) 1,000 mcg tab Take 1,000 mcg by mouth. - glucagon 3 mg/actuation nasal spray (BAQSIMI) - ondansetron orally disintegrating (ZOFRAN ODT) 4 mg disintegrating tablet Take 4 mg by mouth every 6 hours as needed. - DULCOLAX, BISACODYL, RECTAL by RECTAL route once daily as needed. - dextrose 40 % gel Take 15 g by mouth as needed. - insulin aspart U-100 (NOVOLOG) 100 unit/mL Use via insulin pump Max daily dose 100 units, DX: E10.65 - senna-docusate (SENNA-S) 8.6-50 mg per tablet 1 tablet by ORAL/FEEDING TUBE route two times a day. - lactobacillus rhamnosus (CULTURELLE) 10 billion cell capsule (Discontinued) Take 1 capsule by mouth once daily. Problem List As Of Date 09/12/2024 Noted Resolved Neoplasm of bladder [D49.4] 02/16/2021 Asthma (HCC) [J45.909] 02/16/2021 Essential hypertension [I10] 02/16/2021 Palpitations [R00.2] 02/16/2021 Obesity [E66.9] 02/16/2021 06/11/2022 Diabetes mellitus type I (HCC) [E10.9] Malignant neoplasm of urinary bladder (HCC) [C6*04/20/2021 Small bowel obstruction (HCC) [K56.609] 12/16/2021 12/21/2021 Severe protein-calorie malnutrition (HCC) [E43] 12/20/2021 Hypokalemia [E87.6] 12/21/2021 Hypophosphataemia [E83.39] 12/21/2021 Hyponatremia [E87.1] 01/05/2022 Hypomagnesemia [E83.42] 01/05/2022 Hydronephrosis [N13.30] 01/09/2022 Chronic low back pain without sciatica [M54.50,*03/13/2022 Lesion of lumbar spine [M89.9] 06/10/2022 Spinal cord mass (HCC) [G95.89] 06/15/2022 Unstageable pressure ulcer of sacral region (HC*06/16/2022 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] 09/05/2023 Tibia/fibula fracture, left, closed, initial en*10/07/2023 Dyslipidemia [E78.5] 10/07/2023 10/18/2023 Insulin pump status [Z96.41] 10/07/2023 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*10/07/2023 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] 10/07/2023 Gait abnormality [R26.9] 10/07/2023 ABLA (acute blood loss anemia) [D62] 10/09/2023 Hydrocephalus (HCC) [G91.9] 10/11/2023 Type 1 diabetes mellitus with (more content not included)...NormalMetroHealth [facility] Glucoseon 93-19-8771Dmcbpky [Mass/Vol]146 mg/dLCritically tlqk64-18Sxilf Regional Medical CenterComment on above:Performed By: #### CBCWD #### [facility] [address] [place] [address] ONH Performed [facility] HospitalComment on above:Performed By: #### CBCWD #### [facility] [address] [place] [address] Aieslwc [Mass/Vol]122 mg/dLCritically cyvb15-42Tyunr[address] [place], [place] [address]Comment on above:Performed By: #### PGLU #### [facility] [address] [place] [address] MQQ Performed [facility] HospitalComment on above:Performed By: #### PGLU #### [facility] [address] [place] [address] Kynwkeg [Mass/Vol]114 mg/dLCritically jzrc02-67Qfejf[address] [place], [place] [address]Comment on above:Performed By: #### CBCWD #### [facility] [address] [place] [address] XKC Performed [facility] HospitalComment on above:Performed By: #### CBCWD #### [facility] [address] [place] [address] Lpderow [Mass/Vol]108 mg/dLCritically hwzd72-27Gxjms[address] [place], [place] [address]Comment on above:Performed By: #### PGLU #### [facility] [address] [place] [address] CQH Performed [facility] HospitalComment on above:Performed By: #### PGLU #### [facility] [address] [place] [address] Hxgyx Metabolic Panelon 35-50-4940Xuhdg gap [Moles/Vol]8 mmol/LLow 12-29[facility] HospitalComment on above:Performed By: #### PGLU #### [facility] [address] [place] [address] Qqaglir [Mass/Vol]8.5 mg/dLNormal8.5-9.9[facility] HospitalComment on above:Performed By: #### PGLU #### [facility] [address] [place] [address] Urpwzbib [Moles/Vol]103 mmol/NQjhkme04-905ZyphhUchealth Highlands Ranch HospitalComment on above:Performed By: #### PGLU #### [facility] [address] [place] [address] RF4 [Moles/Vol]29 mmol/WUqbjlb09-56PwunxUchealth Highlands Ranch Hospital Comment on above:Performed By: #### PGLU #### [facility] [address] [place] [address] Qwfvubskql [Mass/Vol]0.52 mg/dLNormal0.50-0.90[facility] HospitalComment on above:Performed By: #### PGLU #### [facility] [address] [place] [address] JKL>90.0Normal>60[facility] HospitalComment on above: Result Comment: Pediatric calculator link https://www.kidney.org/professionals/kdoqi/gfr_calculatorped Effective Jan 16, [...] or following therapy that affects renal tubular secretion.Performed By: #### PGLU #### [facility] [address] [place] [address] Uaosnfp [Mass/Vol]108 mg/dLCritically ppxd91-21UraerKeefe Memorial HospitalComment on above:Performed By: #### PGLU #### [facility] [address] [place] [address] Hxnmcqpso [Moles/Vol]4.3 mmol/LNormal3.4-4.9[facility] HospitalComment on above:Performed By: #### PGLU #### [facility] [address] [place] [address] Xczrig [Moles/Vol]140 mmol/OMabxqh709-072OnqipUchealth Highlands Ranch HospitalComment on above:Performed By: #### PGLU #### [facility] [address] [place] [address] Jetd nitrogen [Mass/Vol]23 mg/dLCritically high6-20[facility] HospitalComment on above:Performed By: #### PGLU #### [facility] [address] [place] [address] JDM With Platelet and Differentialon 91-40-5410Ivgdqfmnp (Bld) [#/Vol]0.0 10*3/uLNormal0.0-0.2MKeefe Memorial HospitalComment on above: Performed By: #### CBCWD #### [facility] [address] [place] [address] Kbnhqxzby/100 WBC (Bld)0.2 %[facility] Comment on above:Performed By: #### CBCWD #### [facility] [address] [place] [address] Fdlyegdvviy (Bld) [#/Vol]0.2 10*3/uLNormal0.0-0.7[facility] HospitalComment on above:Performed By: #### CBCWD #### [facility] [address] [place] [address] Riaaubcdgmp/100 WBC (Bld)3.6 %[facility] Comment on above:Performed By: #### CBCWD #### [facility] [address] [place] [address] Hstjmuccezr distribution width (RBC) [Ratio]15.9 %Critically high 11.5-14.5[facility] HospitalComment on above:Performed By: #### CBCWD #### [facility] [address] [place] [address] Yjoydrumyy (Bld) [Volume fraction]28.8 %Low37.0-47.0[facility] HospitalComment on above:Performed By: #### CBCWD #### [facility] [address] [place] [address] Ktnwmhttlj (Bld) [Mass/Vol]8.9 g/dLLow12.0-16.0[facility] HospitalComment on above:Performed By: #### CBCWD #### [facility] [address] [place] [address] Sjhgexwkqlt (Bld) [#/Vol]1.2 10*3/uLNormal1.0-4.8[facility] HospitalComment on above:Performed By: #### CBCWD #### [facility] [address] [place] [address] Kwaifzlwkuf/100 WBC (Bld)29.4 %NormalUchealth Highlands Ranch Hospital Comment on above:Performed By: #### CBCWD #### [facility] [address] [place] [address] WLB (RBC) [Entitic mass]29.5 uiZqpmvo61.0-31.3MKeefe Memorial HospitalComment on above:Performed By: #### CBCWD #### [facility] [address] [place] [address] FLVL13.9 %Low33.0-37.0[facility] HospitalComment on above: Performed By: #### CBCWD #### [facility] [address] [place] [address] YHE (RBC) [Entitic vol]95.4 fLCritically high79.4-94.8[facility] HospitalComment on above:Performed By: #### CBCWD #### [facility] [address] [place] [address] Uaqokxfio (Bld) [#/Vol]0.5 10*3/uLNormal0.2-0.8[facility] HospitalComment on above:Performed By: #### CBCWD #### [facility] [address] [place] [address] Rktjbzcdp/100 WBC (Bld)12.9 %[facility] Comment on above:Performed By: #### CBCWD #### [facility] [address] [place] [address] Ecsfggyfvsu (Bld) [#/Vol]2.3 10*3/uLNormal1.4-6.5[facility] HospitalComment on above:Performed By: #### CBCWD #### [facility] [address] [place] [address] Ynjxnvhsmjw/100 WBC (Bld)53.7 %[facility] Comment on above:Performed By: #### CBCWD #### [facility] [address] [place] [address] Ozikgerkn (Bld) [#/Vol]432 10*3/uLCritically lebq136-285CzqwhUchealth Highlands Ranch HospitalComment on above:Performed By: #### CBCWD #### [facility] [address] [place] [address] RTE (Bld) [#/Vol]3.02 10*6/uLLow4.20-5.40[facility] HospitalComment on above:Performed By: #### CBCWD #### [facility] [address] [place] [address] BPW (Bld) [#/Vol]4.2 10*3/uLLow4.8-10.8[facility] Comment on above:Performed By: #### CBCWD #### [facility] [address] [place] [address] KOQKFHHjl 73-89-6742TKHBMSCDchhw Visit (ORFWHP) CHIKIS TOBAR ([id number]) 1965 F Date Time Provider Department 09/11/24 9:30 AM VAMSHI SPENCERP During your visit today, we recorded the following information about you: Vamshi Spencer, RN 09/11/2024 10:52 AM Signed Name: Chikis Tobar September 11, 2024 Date of Surgery/Injury: 08/23/24 Procedure(s): 1) left femur intramedullary nail, CPT 79143 Subjective: Patient presents today for post op splint/dressing change/removal and suture/staple removal. Patient reports: Doing well post operatively, pain is well controlled with current regimen. Patient has been WBAT to the operative extremity since surgery, but still not walking. She ss staying at an acute rehab ([facility] Objective: PHYSICAL EXAM: General:Alert, no distress, cooperative Left Lower Extremity: Skin: Incision/s healing well, sutures/lorna intact, edges well approximated, no erythremia, or other signs of infection Drainage: none. Swelling moderate. Sutures/lorna removed today under the direction of Dr. Morejon and steri-strips placed as needed. Vascular: left lower extremity warm with brisk cap refill. Neuro: Sensation intact in saphenous/sural/deep peroneal/superficial peroneal/tibial nerve distribution Musculoskeletal: No tenderness to palpation over fracture and decreased motion secondary to pain/stiffness. Images: Imaging was obtained today and reviewed by Dr. Morejon Assessment and Plan: -Pain management: Managed by the nursing rehab facility -Discussed non pharmacologic pain control: ice/elevation. Limit narcotic/opioid pain medications and discontinue by 6 weeks post op. Tylenol preferred -Post op DVT prophylaxis: Finish remaining Aspirin Rx -[place]/Sutures removed and Steri-Strips placed if needed: Allow steri-strips to fall off on their own if used. -Ok to shower, pat incision area dry. No soaking/submerging -Physical/Occupational therapy: Continue PT at the nursing facility -Activity: Weightbearing: Weight bearing as tolerated and ROMAT -Follow up: 4-6 weeks with x-rays with Dr. Morejon or orthopedic trauma PAGiancarlo Spencer RN RN Post-Op Clinic oversight/resource Aashish Monge PA-C/Vamshi Walden RN 09/11/2024 10:37 AM Signed MD Aashish Wilson PA-C Sarah Solarz, RN Orthopedic Trauma Surgery Appointments Direct Office DVT Prevention: Finish remaining aspirin for a total of 30 days from surgery. Incision Care: Lorna/sutures were removed today, if Steri-Strips were placed allow them to fall off on their own. If covered with a bandage you may remove the bandage this evening and leave uncovered, if there is drainage present cover lightly as needed. Monitor the incisions for redness, purulent drainage. Call office with concerns. You may shower, do not soak or submerge (pools/tubs) the area with the incision, until it is fully healed, usually 3-4 weeks. Do not use lotions/creams etc on the incisions until fully healed. Activity: Weightbearing: Weightbearing as tolerated Range of motion: Range of motion as tolerated (no restriction) Physical Therapy: Continue PT/OT at nursing facility Pain Management: - Ice and elevate the surgical extremity to help with pain and swelling. You may begin using compression (such as a compression socks or a sleeve once the incisions are healed.) Allergies As of Date: 09/11/2024 Noted Allergy Reaction DEMERAL (MEPERIDINE) 02/09/2021 8 - GI Upset Comments: Nausea, pt states room spins FLEXERIL (CYCLOBENZAPRINE) 02/09/2021 4 - Hives ORPHENADRINE 09/30/2015 14 - Other: See Comments 4 - Hives 2 - Rash VERSED (MIDAZOLAM) 02/18/2021 1 - Mental Status Change Date Reviewed: 09/11/2024 Reviewed by: Anita Maxwell MA - Fully Assessed Reason for Visit: Post Op [174] Primary Visit Diagnosis:Closed fracture of distal end of left femur, unspecified fracture morphology, initial encounter ([facility]) [S72.758M] Prescriptions as of 09/11/2024 - acetaminophen (TYLENOL) 325 mg tablet Take 2 tablets by mouth every 6 hours as needed for pain. - aspirin, enteric coated (ADULT LOW DOSE ASPIRIN) 81 mg EC tablet Take 1 tablet by mouth two times a day for 28 days, THEN 1 tablet two times a day. - metoprolol succinate ER (TOPROL XL) 100 mg Take 0.5 tablets by mouth two times a day. - posaconazole DR (NOXAFIL) 100 mg tablet Take 3 tablets by mouth once daily. - lisinopril (ZESTRIL) 5 mg tablet Take 1 tablet by mouth once daily. - baclofen 10 mg tablet Take 1 tablet by mouth two times a day AND 2 tablets daily at bedtime. - potassium chloride SR (MICRO-K) 10 mEq CR capsule Take 1 capsule by mouth every afternoon. - bumetanide (BUMEX) 1 mg tablet Take 1 tablet by mouth every 12 hours. - (more content not included)...Normal[facility] Glucoseon 09-11-2024 Glucose [Mass/Vol]95 mg/tLKlyoyj45-97Slmcb80 Hampton StreetComment on above:Performed By: #### PGLU #### [facility] [address] [facility] [place] [address] PTW Performed [facility] HospitalComment on above:Performed By: #### PGLU #### [facility] [address] [place] [address] Qihgydd [Mass/Vol]121 mg/dLCritically dnfu15-92Kakav[address] [place], [place] [address]Comment on above:Performed By: #### CBCWD #### [facility] [address] [place] [address] FBZ Performed [facility] HospitalComment on above:Performed By: #### CBCWD #### [facility] [address] [place] [address] Cbmhmno [Mass/Vol]121 mg/dLCritically fctm38-09SjxzhKeefe Memorial HospitalComment on above:Performed By: #### CBCWD #### [facility] [address] [place] [address] BBK Performed [facility] HospitalComment on above:Performed By: #### CBCWD #### [facility] [address] [place] [address] Kfpcytw [Mass/Vol]124 mg/dLCritically kivg36-38Ipkxc [facility] Medical CenterComment on above:Performed By: #### CBCWD #### [facility] [address] [place] [address] SPI Performed [facility] HospitalComment on above:Performed By: #### CBCWD #### [facility] [address] [place] [address] [place] FEMUR 2V AP/LAT LTon 35-73-2576AH FEMUR 2V AP/LAT LT* * *Final Report* * * DATE OF EXAM: Sep 11 2024 11:00AM FGX 5332 - XR FEMUR 2V AP/LAT LT / PROCEDURE REASON: multiple diagnoses * * * * Physician Interpretation * * * * EXAMINATION / TECHNIQUE: XR FEMUR 2V AP/LAT LT PATIENT/TECHNOLOGIST PROVIDED HISTORY: pain CLINICAL INFORMATION ( PROVIDED BY ORDERING CLINICIAN) : Tibia/fibula fracture, left, closed, initial encounter Tibia/fibula fracture, left, closed, initial encounter COMPARISON: 08/23/2024 RESULT: Interval open reduction internal fixation of the distal femoral metadiaphysis fracture with a long intramedullary kathleen and proximal and distal interlocking screws. There is slightly increased fragmentation along the medial aspect of the fracture line AP view compared to preoperative radiographs. Minimal early callus formation is seen along the fracture margins. Fracture lucencies remain readily visible. Hardware is intact. Linear lucencies and osseous resorptive changes within the patella which may be postoperative or secondary to healing fracture. Skin lorna in the proximal and distal thigh. IMPRESSION: Left distal femoral fracture with intact hardware and early healing changes. Healing postoperative changes versus fracture in the inferior patella. Laundry Aid: PSCB Transcribe Date/Time: Sep 15 2024 7:18A Dictated by : LIAT ANDUJAR MD This examination was interpreted and the report reviewed and electronically signed by: LIAT ANDUJAR MD on Sep 15 2024 7:22AM EST [id number]' HospitalPOCT Glucoseon 99-62-1821Gwwnnjc [Mass/Vol]153 mg/dLCritically fcpg19-63DpjqhKeefe Memorial HospitalComment on above:Performed By: #### PGLU #### [facility] [address] [place] [address] SKQ Performed [facility] HospitalComment on above:Performed By: #### PGLU #### [facility] [address] [place] [address] Bggiutm [Mass/Vol]189 mg/dLCritically cdyc10-03HizwiKeefe Memorial HospitalComment on above:Performed By: #### PGLU #### [facility] [address] [place] [address] ELT Performed [facility] HospitalComment on above:Performed By: #### PGLU #### [facility] [address] [place] [address] Zzlxjdn [Mass/Vol]166 mg/dLCritically cnvp80-90GeeaxKeefe Memorial HospitalComment on above:Performed By: #### CBCWD #### [facility] [address] [place] [address] FIU Performed [facility] HospitalComment on above:Performed By: #### CBCWD #### [facility] [address] [place] [address] Gshaqxv [Mass/Vol]260 mg/dLCritically iuqw54-40UhbvwKeefe Memorial HospitalComment on above:Performed By: #### PGLU #### [facility] [address] [place] [address] DOS Performed onPresbyterian/St. Luke's Medical CenterComment on above:Performed By: #### PGLU #### [facility] [address] [place] [address] HEAP Glucoseon 18-51-3920Vfaqvib [Mass/Vol]275 mg/dLCritically high 70-99MKeefe Memorial HospitalComment on above:Performed By: #### PGLU #### [facility] [address] [place] [address] RUJ Performed onRED LA[facility] INDI[facility] SERVICES HOSPITALU-Presbyterian/St. Luke's Medical CenterComment on above:Performed By: #### PGLU #### [facility] [address] [place] [address] Ohxvbju [Mass/Vol]213 mg/dLCritically sfon70-24Dcnhg[address] [place], [place] [address]Comment on above:Performed By: #### CBCWD #### [facility] [address] [place] [address] TMP Performed onRED LAKE INDI[facility] HEALTH SERVICES HOSPITALU-Presbyterian/St. Luke's Medical CenterComment on above:Performed By: #### CBCWD #### [facility] [address] [place] [address] Nrarfyu [Mass/Vol]221 mg/dLCritically lyrs22-15Sivtk[address] [place], [place] [address]Comment on above:Performed By: #### PGLU #### [facility] [address] [place] [address] PAE Performed onRED LAKE INDI[facility] HEALTH SERVICES HOSPITALUMcKee Medical CenterComment on above:Performed By: #### PGLU #### [facility] [address] [place] [address] Yqtnaqz [Mass/Vol]159 mg/dLCritically npwj48-21YmqgcKeefe Memorial HospitalComment on above:Performed By: #### PGLU #### [facility] [address] [place] [address] TUU Performed [facility] HospitalComment on above:Performed By: #### PGLU #### [facility] [address] [place] [address] Xtitn Metabolic Panelon [id number] gap [Moles/Vol]7 mmol/LLow 9-15[facility] HospitalComment on above:Order Comment: Collection has been rescheduled by DAMGA at 09/08/2024 06:01 Reason:Collected used plabels Performed By: #### PGLU #### [facility] [address] [place] [address] Jopudvw [Mass/Vol]8.5 mg/dLNormal8.5-9.9[facility] HospitalComment on above:Order Comment: Collection has been rescheduled by JOSÉ MIGUELGA at 09/08/2024 06:01 Reason:Collected used plabelsPerformed By: #### PGLU #### [facility] [address] [place] [address] Wjgjdudj [Moles/Vol]102 mmol/XRftpug20-123WmqeaUchealth Highlands Ranch HospitalComment on above:Order Comment: Collection has been rescheduled by DAMGA at 09/08/2024 06:01 Reason:Collected used plabelsPerformed By: #### PGLU #### [facility] [address] [place] [address] RV1 [Moles/Vol]29 mmol/ZFszgpm69-87YxtfrUchealth Highlands Ranch Hospital Comment on above:Order Comment: Collection has been rescheduled by DAMGA at 09/08/2024 06:01 Reason:Collected used plabelsPerformed By: #### PGLU #### [facility] [address] [place] [address] Lktmabmjbx [Mass/Vol]0.49 mg/dLLow0.50-0.90[facility] HospitalComment on above:Order Comment: Collection has been rescheduled by DAMGA at 09/08/2024 06:01 Reason:Collected used plabelsPerformed By: #### PGLU #### [facility] [address] [place] [address] BOB>90.0Normal>60[facility] HospitalComment on above:Order Comment: Collection has been rescheduled by CADE at 09/08/2024 06:01 Reason:Collected used plabelsResult Comment: Pediatric calculator link https://www.kidney.org/professionals/kdoqi/gfr_calculatorped Effective Jan 16, [...] or following therapy that affects renal tubular secretion.Performed By: #### PGLU #### [facility] [address] [place] [address] Oawqvto [Mass/Vol]94 mg/cFWxyzgn09-20TczelKeefe Memorial Hospital Comment on above:Order Comment: Collection has been rescheduled by CADE at 09/08/2024 06:01 Reason:Collected used plabelsPerformed By: #### PGLU #### [facility] [address] [place] [address] Btnszivpn [Moles/Vol]4.3 mmol/LNormal3.4-4.9[facility] HospitalComment on above:Order Comment: Collection has been rescheduled by CADE at 09/08/2024 06:01 Reason:Collected used plabelsPerformed By: #### PGLU #### [facility] [address] [place] [address] Igxsuo [Moles/Vol]138 mmol/OZpmhqo260-248UkeueUchealth Highlands Ranch HospitalComment on above:Order Comment: Collection has been rescheduled by CADE at 09/08/2024 06:01 Reason:Collected used plabelsPerformed By: #### PGLU #### [facility] [address] [place] [address] Jxuy nitrogen [Mass/Vol]22 mg/dLCritically high6-20[facility] HospitalComment on above:Order Comment: Collection has been rescheduled by CADE at 09/08/2024 06:01 Reason:Collected used plabelsPerformed By: #### PGLU #### [facility] [address] [place] [address] EQV With Platelet and Differentialon [id number] (Bld) [#/Vol]0.0 10*3/uLNormal0.0-0.2MKeefe Memorial HospitalComment on above: Order Comment: Collection has been rescheduled by CADE at 09/08/2024 06:01 Reason:Collected used plabelsPerformed By: #### PGLU #### [facility] [address] [place] [address] Dkdsukbvu/100 WBC (Bld)0.5 %[facility] Comment on above:Order Comment: Collection has been rescheduled by CADE at 09/08/2024 06:01 Reason:Collected used plabelsPerformed By: #### PGLU #### [facility] [address] [place] [address] Kswvzryzwti (Bld) [#/Vol]0.2 10*3/uLNormal0.0-0.7[facility] HospitalComment on above:Order Comment: Collection has been rescheduled by CADE at 09/08/2024 06:01 Reason:Collected used plabelsPerformed By: #### PGLU #### [facility] [address] [place] [address] Bukgkydbwmb/100 WBC (Bld)3.6 %[facility] Comment on above:Order Comment: Collection has been rescheduled by CADE at 09/08/2024 06:01 Reason:Collected used plabelsPerformed By: #### PGLU #### [facility] [address] [place] [address] Aeesfnjkpxt distribution width (RBC) [Ratio]16.3 %Critically high 11.5-14.5[facility] HospitalComment on above:Order Comment: Collection has been rescheduled by CADE at 09/08/2024 06:01 Reason:Collected used plabels Performed By: #### PGLU #### [facility] [address] [place] [address] Vaybcxulbh (Bld) [Volume fraction]28.1 %Low37.0-47.0[facility] HospitalComment on above:Order Comment: Collection has been rescheduled by CADE at 09/08/2024 06:01 Reason:Collected used plabelsPerformed By: #### PGLU #### [facility] [address] [place] [address] Ypnhvbzufl (Bld) [Mass/Vol]8.8 g/dLLow12.0-16.0[facility] HospitalComment on above:Order Comment: Collection has been rescheduled by CADE at 09/08/2024 06:01 Reason:Collected used plabelsPerformed By: #### PGLU #### [facility] [address] [place] [address] Jfcpzyrwrjg (Bld) [#/Vol]0.9 10*3/uLLow1.0-4.8[facility] HospitalComment on above:Order Comment: Collection has been rescheduled by CADE at 09/08/2024 06:01 Reason:Collected used plabelsPerformed By: #### PGLU #### [facility] [address] [facility] [place] [address] Mfirogtdagn/100 WBC (Bld)20.4 %NormalUchealth Highlands Ranch Hospital Comment on above:Order Comment: Collection has been rescheduled by CADE at 09/08/2024 06:01 Reason:Collected used plabelsPerformed By: #### PGLU #### [facility] [address] [place] [address] IXJ (RBC) [Entitic mass]30.0 kgJjbqsu53.0-31.3MKeefe Memorial HospitalComment on above:Order Comment: Collection has been rescheduled by CADE at 09/08/2024 06:01 Reason:Collected used plabelsPerformed By: #### PGLU #### [facility] [address] [place] [address] OEKA18.3 %Low33.0-37.0[facility] HospitalComment on above: Order Comment: Collection has been rescheduled by CADE at 09/08/2024 06:01 Reason:Collected used plabelsPerformed By: #### PGLU #### [facility] [address] [place] [address] DDH (RBC) [Entitic vol]95.9 fLCritically high79.4-94.8[facility] HospitalComment on above:Order Comment: Collection has been rescheduled by CADE at 09/08/2024 06:01 Reason:Collected used plabelsPerformed By: #### PGLU #### [facility] [address] [place] [address] Qmiomaqiz (Bld) [#/Vol]0.5 10*3/uLNormal0.2-0.8[facility] HospitalComment on above:Order Comment: Collection has been rescheduled by JOSÉ MIGUELMT at 09/08/2024 06:01 Reason:Collected used plabelsPerformed By: #### PGLU #### [facility] [address] [place] [address] Nwoirkzpj/100 WBC (Bld)10.7 %NormalUchealth Highlands Ranch Hospital Comment on above:Order Comment: Collection has been rescheduled by JOSÉ MIGUELGA at 09/08/2024 06:01 Reason:Collected used plabelsPerformed By: #### PGLU #### [facility] [address] [place] [address] Jaghgjqzmak (Bld) [#/Vol]2.7 10*3/uLNormal1.4-6.5[facility] HospitalComment on above:Order Comment: Collection has been rescheduled by CADE at 09/08/2024 06:01 Reason:Collected used plabelsPerformed By: #### PGLU #### [facility] [address] [place] [address] Bwnsrgorzdj/100 WBC (Bld)64.3 %NormalUchealth Highlands Ranch Hospital Comment on above:Order Comment: Collection has been rescheduled by CADE at 09/08/2024 06:01 Reason:Collected used plabelsPerformed By: #### PGLU #### [facility] [address] [place] [address] Opotkeyym (Bld) [#/Vol]490 10*3/uLCritically hbbn240-727WfukmUchealth Highlands Ranch HospitalComment on above:Order Comment: Collection has been rescheduled by CADE at 09/08/2024 06:01 Reason:Collected used plabelsPerformed By: #### PGLU #### [facility] [address] [place] [address] UVP (Bld) [#/Vol]2.93 10*6/uLLow4.20-5.40[facility] HospitalComment on above:Order Comment: Collection has been rescheduled by CADE at 09/08/2024 06:01 Reason:Collected used plabelsPerformed By: #### PGLU #### [facility] [address] [place] [address] WZP (Bld) [#/Vol]4.2 10*3/uLLow4.8-10.8[facility] Comment on above:Order Comment: Collection has been rescheduled by CADE at 09/08/2024 06:01 Reason:Collected used plabelsPerformed By: #### PGLU #### [facility] [address] [place] [address] FPEJ Glucoseon 06-84-1531Ipzckle [Mass/Vol]215 mg/dLCritically high 70-99MKeefe Memorial HospitalComment on above:Performed By: #### PGLU #### [facility] [address] [place] [address] SCS Performed onACCU-CHEKNormalUchealth Highlands Ranch HospitalComment on above:Performed By: #### PGLU #### [facility] [address] [place] [address] Aepnnhm [Mass/Vol]186 mg/dLCritically dvjm22-42Wqget[address] [place], [place] [address]Comment on above:Performed By: #### PGLU #### [facility] [address] [place] [address] JIX Performed onPresbyterian/St. Luke's Medical CenterComment on above:Performed By: #### PGLU #### [facility] [address] [place] [address] Mcczkvf [Mass/Vol]121 mg/dLCritically vnox09-33Hcdok[address] [place], [place] [address]Comment on above:Performed By: #### PGLU #### [facility] [address] [place] [address] YIR Performed [facility] HospitalComment on above:Performed By: #### PGLU #### [facility] [address] [place] [address] Nhrjrql [Mass/Vol]91 mg/jTEyubww90-86Gclos[address] Comment on above:Performed By: #### PGLU #### [facility] [address] [place] [address] RDO Performed [facility] HospitalComment on above:Performed By: #### PGLU #### [facility] [address] [place] [address] KISU Glucoseon 33-33-8743Apdftex [Mass/Vol]150 mg/dLCritically high 70-[address] [place], [place] [address]Comment on above:Performed By: #### CBCWD #### [facility] [address] [place] [address] FHU Performed [facility] HospitalComment on above:Performed By: #### CBCWD #### [facility] [address] [place] [address] Vizozru [Mass/Vol]88 mg/yHFcvvyp13-68Pwsqd[address] [place] [address] Comment on above:Performed By: #### PGLU #### [facility] [address] [place] [address] QIH Performed [facility] HospitalComment on above:Performed By: #### PGLU #### [facility] [address] [place] [address] Xwaqtdb [Mass/Vol]154 mg/dLCritically drgn48-04IywtlKeefe Memorial HospitalComment on above:Performed By: #### PGLU #### [facility] [address] [place] [address] UTP Performed [facility] HospitalComment on above:Performed By: #### PGLU #### [facility] [address] [place] [address] Xijnenh [Mass/Vol]105 mg/dLCritically jlhg29-37Pccax[address] [place], [place] [address]Comment on above:Performed By: #### PGLU #### [facility] [address] [place] [address] PTR Performed [facility] HospitalComment on above:Performed By: #### PGLU #### [facility] [address] [place] [address] QNBX Glucoseon 07-85-4936Pwluxvj [Mass/Vol]123 mg/dLCritically high 70-[address] [place], [place] [address]Comment on above:Performed By: #### PGLU #### [facility] [address] [place] [address] TJO Performed [facility] HospitalComment on above:Performed By: #### PGLU #### [facility] [address] [place] [address] Ktgevaw [Mass/Vol]137 mg/dLCritically bfan04-60Xfbwx[address] [place], [place] [address]Comment on above:Performed By: #### PGLU #### [facility] [address] [place] [address] CSZ Performed [facility] HospitalComment on above:Performed By: #### PGLU #### [facility] [address] [place] [address] Ffiabos [Mass/Vol]175 mg/dLCritically jlie12-47Jryao[address] [place], [place] [address]Comment on above:Performed By: #### PGLU #### [facility] [address] [place] [address] VXE Performed onPresbyterian/St. Luke's Medical CenterComment on above:Performed By: #### PGLU #### [facility] [address] [place] [address] Kumkphc [Mass/Vol]81 mg/fSWlxemf40-47Hmukk[address] [place] [address] Comment on above:Performed By: #### PGLU #### [facility] [address] [place] [address] OMY Performed onPresbyterian/St. Luke's Medical CenterComment on above:Performed By: #### PGLU #### [facility] [address] [place] [address] FFPU Glucoseon 34-10-5948Irnvcxk [Mass/Vol]193 mg/dLCritically high 70-[address] [place], [place] [address]Comment on above:Performed By: #### PGLU #### [facility] [address] [place] [address] FRR Performed onPresbyterian/St. Luke's Medical CenterComment on above:Performed By: #### PGLU #### [facility] [address] [place] [address] Szkpbry [Mass/Vol]359 mg/dLCritically dgcd04-19GucsxKeefe Memorial HospitalComment on above:Performed By: #### PGLU #### [facility] [address] [place] [address] ENP Performed [facility] HospitalComment on above:Result Comment: Notified RN or MDPerformed By: #### PGLU #### [facility] [address] [place] [address] Qmkntvf [Mass/Vol]294 mg/dLCritically bgur93-62Ftykw[address] [place], [place] [address]Comment on above:Performed By: #### PGLU #### [facility] [address] [place] [address] LZF Performed [facility] HospitalComment on above:Performed By: #### PGLU #### [facility] [address] [place] [address] Qkqkgfg [Mass/Vol]246 mg/dLCritically rfro98-45Wqyom[address] [place], [place] [address]Comment on above:Performed By: #### PGLU #### [facility] [address] [place] [address] FFC Performed [facility] HospitalComment on above:Performed By: #### PGLU #### [facility] [address] [place] [address] Kpscowt [Mass/Vol]111 mg/dLCritically mgqy64-42Mawzh[address] [place], [place] [address]Comment on above:Performed By: #### PGLU #### [facility] [address] [place] [address] WYF Performed [facility] HospitalComment on above:Performed By: #### PGLU #### [facility] [address] [place] [address] Jgjes Metabolic Panelon [id number] gap [Moles/Vol]8 mmol/LLow 12-29[facility] HospitalComment on above:Performed By: #### PGLU #### [facility] [address] [place] [address] Jqmfvqf [Mass/Vol]8.7 mg/dLNormal8.5-9.9[facility] HospitalComment on above:Performed By: #### PGLU #### [facility] [address] [place] [address] Lrynmvmr [Moles/Vol]107 mmol/KApfsbu03-243UzemlUchealth Highlands Ranch HospitalComment on above:Performed By: #### PGLU #### [facility] [address] [place] [address] GJ1 [Moles/Vol]24 mmol/TJtyblm08-31KxlzvUchealth Highlands Ranch Hospital Comment on above:Performed By: #### PGLU #### [facility] [address] [place] [address] Ijjupjhwqt [Mass/Vol]0.45 mg/dLLow0.50-0.90[facility] HospitalComment on above:Performed By: #### PGLU #### [facility] [address] [place] [address] PBQ>90.0Normal>60[facility] HospitalComment on above: Result Comment: Pediatric calculator link https://www.kidney.org/professionals/kdoqi/gfr_calculatorped Effective Jan 16, [...] or following therapy that affects renal tubular secretion.Performed By: #### PGLU #### [facility] [address] [place] [address] Mohyvrn [Mass/Vol]115 mg/dLCritically pyzc28-52GkgknKeefe Memorial HospitalComment on above:Performed By: #### PGLU #### [facility] [address] [place] [address] Zepkldqdr [Moles/Vol]4.5 mmol/LNormal3.4-4.9[facility] HospitalComment on above:Performed By: #### PGLU #### [facility] [address] [place] [address] Uqcjpp [Moles/Vol]139 mmol/COeulei947-274IrohoUchealth Highlands Ranch HospitalComment on above:Performed By: #### PGLU #### [facility] [address] [place] [address] Hmup nitrogen [Mass/Vol]13 mg/dLNormal6-20[facility] HospitalComment on above:Performed By: #### PGLU #### [facility] [address] [place] [address] WCK With Platelet and Differentialon 33-84-6692Scqpnflhd (Bld) [#/Vol]0.0 10*3/uLNormal0.0-0.2MKeefe Memorial HospitalComment on above: Performed By: #### PGLU #### [facility] [address] [place] [address] Eexkxcbef/100 WBC (Bld)0.5 %[facility] Comment on above:Performed By: #### PGLU #### [facility] [address] [place] [address] Jrkztjiajkf (Bld) [#/Vol]0.1 10*3/uLNormal0.0-0.7[facility] HospitalComment on above:Performed By: #### PGLU #### [facility] [address] [place] [address] Vhdlmiclygo/100 WBC (Bld)2.8 %[facility] Comment on above:Performed By: #### PGLU #### [facility] [address] [place] [address] Sswbqiffzrc distribution width (RBC) [Ratio]16.1 %Critically high 11.5-14.5[facility] HospitalComment on above:Performed By: #### PGLU #### [facility] [address] [place] [address] Lcizlhcdod (Bld) [Volume fraction]27.0 %Low37.0-47.0[facility] HospitalComment on above:Performed By: #### PGLU #### [facility] [address] [place] [address] Zxhjqxlcmk (Bld) [Mass/Vol]8.5 g/dLLow12.0-16.0[facility] HospitalComment on above:Performed By: #### PGLU #### [facility] [address] [place] [address] Nldnicnqdrv (Bld) [#/Vol]0.9 10*3/uLLow1.0-4.8[facility] HospitalComment on above:Performed By: #### PGLU #### [facility] [address] [place] [address] Pwdpmdzgvai/100 WBC (Bld)24.3 %NormalUchealth Highlands Ranch Hospital Comment on above:Performed By: #### PGLU #### [facility] [address] [place] [address] SQP (RBC) [Entitic mass]30.0 vbWbpozc12.0-31.3MKeefe Memorial HospitalComment on above:Performed By: #### PGLU #### [facility] [address] [place] [address] EGES96.5 %Low33.0-37.0[facility] HospitalComment on above: Performed By: #### PGLU #### [facility] [address] [place] [address] ITI (RBC) [Entitic vol]95.4 fLCritically high79.4-94.8[facility] HospitalComment on above:Performed By: #### PGLU #### [facility] [address] [place] [address] Lqatyaaba (Bld) [#/Vol]0.4 10*3/uLNormal0.2-0.8[facility] HospitalComment on above:Performed By: #### PGLU #### [facility] [address] [place] [address] Bqavywpev/100 WBC (Bld)10.3 %[facility] Comment on above:Performed By: #### PGLU #### [facility] [address] [place] [address] Xzvxbnelznc (Bld) [#/Vol]2.4 10*3/uLNormal1.4-6.5[facility] HospitalComment on above:Performed By: #### PGLU #### [facility] [address] [place] [address] Cwgxxxkczdx/100 WBC (Bld)61.6 %[facility] Comment on above:Performed By: #### PGLU #### [facility] [address] [place] [address] Pjjsszzrl (Bld) [#/Vol]517 10*3/uLCritically ovqz346-678KziwvUchealth Highlands Ranch HospitalComment on above:Performed By: #### PGLU #### [facility] [address] [place] [address] TKG (Bld) [#/Vol]2.83 10*6/uLLow4.20-5.40[facility] HospitalComment on above:Performed By: #### PGLU #### [facility] [address] [place] [address] TAL (Bld) [#/Vol]3.9 10*3/uLLow4.8-10.8[facility] Comment on above:Performed By: #### PGLU #### [facility] [address] [place] [address] JYDN Glucoseon 03-32-3443Fqdcgfl [Mass/Vol]243 mg/dLCritically high 70-99MKeefe Memorial HospitalComment on above:Performed By: #### PGLU #### [facility] [address] [place] [address] XGK Performed onPresbyterian/St. Luke's Medical CenterComment on above:Performed By: #### PGLU #### [facility] [address] [place] [address] Unpulvm [Mass/Vol]279 mg/dLCritically cqov77-69Fglwz[address] [place], [place] [address]Comment on above:Performed By: #### PGLU #### [facility] [address] [place] [address] QHD Performed onPresbyterian/St. Luke's Medical CenterComment on above:Performed By: #### PGLU #### [facility] [address] [place] [address] Gbqqxov [Mass/Vol]222 mg/dLCritically tvvg38-80Avlzq[address] [place], [place] [address]Comment on above:Performed By: #### PGLU #### [facility] [address] [place] [address] CRE Performed onPresbyterian/St. Luke's Medical CenterComment on above:Performed By: #### PGLU #### [facility] [address] [place] [address] Rnzbvxh [Mass/Vol]132 mg/dLCritically qyzo38-62Qqaem[address] [place], [place] [address]Comment on above:Performed By: #### PGLU #### [facility] [address] [place] [address] TAS Performed onPresbyterian/St. Luke's Medical CenterComment on above:Performed By: #### PGLU #### [facility] [address] [place] [address] Cftfy Occult Blood EIAon [id number] Occult Blood EIAORDER#: [id number] ORDERED BY: ALY GUAMAN SOURCE: Stool COLLECTED: 09/03/24 09:00 ANTIBIOTICS AT [facility]BAR[facility].: RECEIVED : 09/03/24 09:15 Fecal Occult Blood EIA FINAL 09/03/24 09:30 Negative Normal Range:NegativeNormOrthoColorado Hospital at St. Anthony Medical CampusComment on above: Performed By: #### PGLU #### [facility] [address] [place] [address] FDEZ Glucoseon 72-34-4579Bieejsb [Mass/Vol]138 mg/dLCritically high 70-[address] [place], [place] [address]Comment on above:Performed By: #### PGLU #### [facility] [address] [place] [address] FLX Performed onPresbyterian/St. Luke's Medical CenterComment on above:Performed By: #### PGLU #### [facility] [address] [place] [address] Iosgzbn [Mass/Vol]105 mg/dLCritically fsig79-82Vzuql[address] [place], [place] [address]Comment on above:Performed By: #### PGLU #### [facility] [address] [place] [address] LQO Performed [facility] HospitalComment on above:Performed By: #### PGLU #### [facility] [address] [place] [address] Lcamorz [Mass/Vol]84 mg/kFXuszep92-61Xivjk[address] Comment on above:Performed By: #### PGLU #### [facility] [address] [place] [address] HJF Performed onPresbyterian/St. Luke's Medical CenterComment on above:Performed By: #### PGLU #### [facility] [address] [place] [address] RXXH Miscellaneous test 1on 52-37-9874Ynuxunqfktupb Test 1SEE [facility] Memorial HospitalComment on above:Order Comment: Specimen cancelled by COURT at 16:49 08/29/2024. DuplicateResult Comment: Test name Result Flag Units RefIntvl Posaconazole, Quantitative by LC-MS/MS 1.7 ug/mL >=0.8 INTERPRETIVE INFORMATION: Posaconazole, Quantitative by LC-MS/MS Therapeutic Range (trough): Greater than 0.7 ug/mL Posaconazole is a triazole antifungal drug indicated to treat invasive aspergillus and candidiasis infections. The therapeutic range is based on serum, predose (trough) draw collection at steady-state concentration. The pharmacokinetics of posaconazole are influenced by drug-drug interactions when coadministered with drugs metabolized by UDP-glucuronosyltransferase. Posaconazole is also an inhibitor of cytochrome P450 3A4 enzyme. Adverse effects may include fever, nausea, vomiting, diarrhea, cardiovascular disorders, and liver toxicity. This test was developed and its performance characteristics determined by [facility]. It has not been cleared or approved by the [place] Food and Drug Administration. This test was performed in a CLIA certified laboratory and is intended for clinical purposes. Performed By: [facility] [address] [place] [address] Silica Mixer Operator: Vasquez Gomez MD, PhD CLIA Number: [id number] By: #### CBCWD #### [facility] [address] [facility] [address] W93/Folate Panelon 03-08-7901Cdfpygnrw (Vitamin B12) [Mass/Vol]606 pg/gBXrlulj302-7010ZtrsoUchealth Highlands Ranch HospitalFolic Acid11.1 ng/mLNormal 4.8-24.2MKeefe Memorial HospitalComment on above:Result Comment: Performed at [facility], [address] [place] [address] .Ferritinon 06-88-9689Kwvovprm [Mass/Vol]183 ng/mLCritically high 15-150[facility] HospitalComment on above:Result Comment: FERRITIN Reference Ranges: Adult Males 20 - 60 years: 30 - 400 ng/mL Adult females 17 - 60 years: 13 - 150 ng/mL Adults greater than 60 years: no established reference range Pediatrics: no established reference range Performed at [facility], [address] [place] [address] .Iron Binding Capon 09-02-2024% Fe Fjrfkggvbv69 %Jcq81-63QrgrlUchealth Highlands Ranch HospitalIron [Mass/Vol]40 ug/cEVkdsyh13-564PtlmcUchealth Highlands Ranch HospitalTotal Fe Binding Usr747 ug/zLGnhuqp768-407EpossUchealth Highlands Ranch Hospital Unbound Fe Bind Fkx458 ug/cJNcopfa267-272WxvxvUchealth Highlands Ranch HospitalComment on above:Result Comment: Performed at [facility], [address] [place], [place] [id number] .POCT Glucoseon 78-42-5751Dfcgpus [Mass/Vol]69 mg/xGWlp05-32WgxheKeefe Memorial HospitalComment on above:Performed By: #### PGLU #### [facility] [address] [place] [address] TED Performed [facility] HospitalComment on above:Performed By: #### PGLU #### [facility] [address] [place] [address] Ivjlrtz [Mass/Vol]138 mg/dLCritically abpo32-16WqsxuKeefe Memorial HospitalComment on above:Performed By: #### PGLU #### [facility] [address] [place] [address] LRQ Performed [facility] HospitalComment on above:Performed By: #### PGLU #### [facility] [address] [place] [address] Hczdtco [Mass/Vol]150 mg/dLCritically ivmv71-74RpnsiKeefe Memorial HospitalComment on above:Performed By: #### PGLU #### [facility] [address] [place] [address] ERR Performed [facility] HospitalComment on above:Performed By: #### PGLU #### [facility] [address] [place] [address] Pmxhlfb [Mass/Vol]143 mg/dLCritically tjix54-34QvfrdKeefe Memorial HospitalComment on above:Performed By: #### PGLU #### [facility] [address] [place] [address] UNH Performed [facility] HospitalComment on above:Performed By: #### PGLU #### [facility] [address] [place] [address] Lghzayo [Mass/Vol]332 mg/dLCritically mbqa23-53GnkptKeefe Memorial HospitalComment on above:Performed By: #### PGLU #### [facility] [address] [place] [address] FPC Performed [facility] HospitalComment on above:Performed By: #### PGLU #### [facility] [address] [place] [address] Lmqoc Metabolic Panelon 96-61-2736Fgnwu gap [Moles/Vol]8 mmol/LLow 9-15[facility] HospitalComment on above:Performed By: #### PGLU #### [facility] [address] [place] [address] Faxxxov [Mass/Vol]8.4 mg/dLLow8.5-9.9[facility] Comment on above:Performed By: #### PGLU #### [facility] [address] [place] [address] Zvavmuwz [Moles/Vol]107 mmol/RHjohvm85-831UhwjwUchealth Highlands Ranch HospitalComment on above:Performed By: #### PGLU #### [facility] [address] [place] [address] BQ4 [Moles/Vol]23 mmol/MBxxvow92-39CfjfqUchealth Highlands Ranch Hospital Comment on above:Performed By: #### PGLU #### [facility] [address] [place] [address] Oeuwhlocqs [Mass/Vol]0.56 mg/dLNormal0.50-0.90[facility] HospitalComment on above:Performed By: #### PGLU #### [facility] [address] [place] [address] UFA>90.0Normal>60[facility] HospitalComment on above: Result Comment: Pediatric calculator link https://www.kidney.org/professionals/kdoqi/gfr_calculatorped Effective Jan 16, [...] or following therapy that affects renal tubular secretion.Performed By: #### PGLU #### [facility] [address] [place] [address] Declcgy [Mass/Vol]107 mg/dLCritically azwm79-56OhpscKeefe Memorial HospitalComment on above:Performed By: #### PGLU #### [facility] [address] [place] [address] Ovgfelitb [Moles/Vol]4.7 mmol/LNormal3.4-4.9[facility] HospitalComment on above:Performed By: #### PGLU #### [facility] [address] [place] [address] Mzedzj [Moles/Vol]138 mmol/ORixhma427-248RaquaUchealth Highlands Ranch HospitalComment on above:Performed By: #### PGLU #### [facility] [address] [place] [address] Kxta nitrogen [Mass/Vol]18 mg/dLNormal6-20[facility] HospitalComment on above:Performed By: #### PGLU #### [facility] [address] [place] [address] UQB With Platelet and Differentialon 69-01-2560Ukznjsdiv (Bld) [#/Vol]0.0 10*3/uLNormal0.0-0.2MKeefe Memorial HospitalComment on above: Performed By: #### PGLU #### [facility] [address] [place] [address] Qtwujiioo/100 WBC (Bld)0.4 %[facility] Comment on above:Performed By: #### PGLU #### [facility] [address] [place] [address] Frnjdmpmpet (Bld) [#/Vol]0.1 10*3/uLNormal0.0-0.7[facility] HospitalComment on above:Performed By: #### PGLU #### [facility] [address] [place] [address] Xtiiocypvww/100 WBC (Bld)2.8 %[facility] Comment on above:Performed By: #### PGLU #### [facility] [address] [place] [address] Ucvithzybpv distribution width (RBC) [Ratio]16.1 %Critically high 11.5-14.5[facility] HospitalComment on above:Performed By: #### PGLU #### [facility] [address] [place] [address] Dtmdwwicid (Bld) [Volume fraction]24.2 %Low37.0-47.0[facility] HospitalComment on above:Performed By: #### PGLU #### [facility] [address] [place] [address] Lyxneiyqrp (Bld) [Mass/Vol]7.7 g/dLLow12.0-16.0[facility] HospitalComment on above:Performed By: #### PGLU #### [facility] [address] [place] [address] Qclhpilauyo (Bld) [#/Vol]1.0 10*3/uLNormal1.0-4.8[facility] HospitalComment on above:Performed By: #### PGLU #### [facility] [address] [place] [address] Ednpwdlmvgy/100 WBC (Bld)19.8 %[facility] Comment on above:Performed By: #### PGLU #### [facility] [address] [place] [address] FMQ (RBC) [Entitic mass]30.2 wdUwiqxx86.0-31.3MKeefe Memorial HospitalComment on above:Performed By: #### PGLU #### [facility] [address] [place] [address] YVXH88.8 %Low33.0-37.0[facility] HospitalComment on above: Performed By: #### PGLU #### [facility] [address] [place] [address] LYY (RBC) [Entitic vol]94.9 fLCritically high79.4-94.8[facility] HospitalComment on above:Performed By: #### PGLU #### [facility] [address] [place] [address] Yhepxgiuq (Bld) [#/Vol]0.5 10*3/uLNormal0.2-0.8[facility] HospitalComment on above:Performed By: #### PGLU #### [facility] [address] [place] [address] Fnapjfvif/100 WBC (Bld)9.3 %[facility] Comment on above:Performed By: #### PGLU #### [facility] [address] [place] [address] Gvyvvumropt (Bld) [#/Vol]3.4 10*3/uLNormal1.4-6.5[facility] HospitalComment on above:Performed By: #### PGLU #### [facility] [address] [place] [address] Fccjrjahkjz/100 WBC (Bld)66.7 %[facility] Comment on above:Performed By: #### PGLU #### [facility] [address] [place] [address] Czxdtjqoh (Bld) [#/Vol]374 10*3/kJApanpt435-535OzipbUchealth Highlands Ranch HospitalComment on above:Performed By: #### PGLU #### [facility] [address] [place] [address] XWY (Bld) [#/Vol]2.55 10*6/uLLow4.20-5.40[facility] HospitalComment on above:Performed By: #### PGLU #### [facility] [address] [place] [address] DPL (Bld) [#/Vol]5.1 10*3/uLNormal4.8-10.8[facility] HospitalComment on above:Performed By: #### PGLU #### [facility] [address] [place] [address] XFRO Glucoseon 03-46-8819Qscyqok [Mass/Vol]479 mg/dLCritically high 70-[address] [place], [place] [address]Comment on above:Performed By: #### PGLU #### [facility] [address] [place] [address] NTB Performed [facility] HospitalComment on above:Result Comment: Sliding ScalePerformed By: #### PGLU #### [facility] [address] [place] [address] Obckaon [Mass/Vol]581 mg/dLCritically xkjb52-31Uqnuj[address] [place], [place] [address]Comment on above:Performed By: #### PGLU #### [facility] [address] [place] [address] HNM Performed [facility] HospitalComment on above:Result Comment: Notified RN or MDPerformed By: #### PGLU #### [facility] [address] [place] [address] Ykbjrtr [Mass/Vol]140 mg/dLCritically zndc89-26Ibpoc[address] [place], [place] [address]Comment on above:Performed By: #### PGLU #### [facility] [address] [place] [address] IHX Performed [facility] HospitalComment on above:Performed By: #### PGLU #### [facility] [address] [place] [address] Wbgkmqu [Mass/Vol]224 mg/dLCritically qjhu40-11Ypeom[address] [place], [place] [address]Comment on above:Performed By: #### PGLU #### [facility] [address] [place] [address] RZH Performed [facility] HospitalComment on above:Performed By: #### PGLU #### [facility] [address] [place] [address] Glxrmrw [Mass/Vol]97 mg/gCRzmfwz42-40Dxuea[address] Comment on above:Performed By: #### PGLU #### [facility] [address] [place] [address] FHO Performed onPresbyterian/St. Luke's Medical CenterComment on above:Performed By: #### PGLU #### [facility] [address] [place] [address] BIIX Glucoseon 23-27-6532Axbprcf [Mass/Vol]188 mg/dLCritically high 70-[address] [place], [place] [address]Comment on above:Performed By: #### PGLU #### [facility] [address] [place] [address] SNG Performed [facility] HospitalComment on above:Performed By: #### PGLU #### [facility] [address] [place] [address] Bzucmuj [Mass/Vol]163 mg/dLCritically htku39-30Aoyst[address] [place], [place] [address]Comment on above:Performed By: #### PGLU #### [facility] [address] [place] [address] NPF Performed [facility] HospitalComment on above:Performed By: #### PGLU #### [facility] [address] [place] [address] Ptnhwxv [Mass/Vol]139 mg/dLCritically imle83-39Brwcg[address] [place], [place] [address]Comment on above:Performed By: #### PGLU #### [facility] [address] [place] [address] WBC Performed onPresbyterian/St. Luke's Medical CenterComment on above:Performed By: #### PGLU #### [facility] [address] [place] [address] Cehhhik [Mass/Vol]90 mg/dAKckxed06-70Gpphw[address] Comment on above:Performed By: #### PGLU #### [facility] [address] [place] [address] ZIU Performed onPresbyterian/St. Luke's Medical CenterComment on above:Performed By: #### PGLU #### [facility] [address] [place] [address] Nhneiyivq susceptibility panel DANA (Isol)on 70-63-2170Nnrjlkeuv susceptibility panel Disk diffusion (KB) (Isol)ORDER#: [id number] ORDERED BY: CONCEPCIÓN WAGNER SOURCE: Urine Voided Urine COLLECTED: 08/30/24 11:14 ANTIBIOTICS AT [facility]BAR[facility].: RECEIVED : 08/30/24 11:14 Culture, Urine FINAL 09/02/24 15:25 Performed at [address] [address] ([phone] Proteus mirabilis >100,000 CFU/ML Identification by MALDI-TOF Enterobacter cloacae complex >100,000 CFU/ML Identification by MALDI-TOF E. cloacae complex ANTIBIOTICS DANA Interp KB ZoneKB Interp Ceftriaxone S Gentamicin <=1 S Levofloxacin 1 I Nitrofurantoin 128 R Piperacillin/Tazobactam 8 S Trimethoprim/Sulfamethoxazole <=20 S S=SUSCEPTIBLE I=INTERMEDIATE R=RESISTANT [facility] CenterComment on above:Performed By: #### 85812-7 #### [facility] [address] [place] [address] [phone] susceptibility panel by [facility] HOSPITALon 91-96-8672Feeibeghq susceptibility panel DANA (Isol)ORDER#: [id number] ORDERED BY: CONCEPCIÓN WAGNER SOURCE: Urine Voided Urine COLLECTED: 08/30/24 11:14 ANTIBIOTICS AT [facility]BAR[facility].: RECEIVED : 08/30/24 11:14 Culture, Urine PRELIM 09/02/24 11:41 Performed at [address] [address] ([phone] Proteus mirabilis >100,000 CFU/ML Identification by MALDI-TOF Enterobacter cloacae complex >100,000 CFU/ML Identification by MALDI-TOF E. cloacae complex ANTIBIOTICS DANA Interp Gentamicin <=1 S Levofloxacin 1 I Nitrofurantoin 128 R Piperacillin/Tazobactam 8 S Trimethoprim/Sulfamethoxazole <=20 S S=SUSCEPTIBLE I=INTERMEDIATE R=RESISTANT [facility] CenterComment on above:Performed By: #### 33182-8 #### [facility] [address] [place] [address] Ombemyy, Urineon 52-44-8192Rndbpuy, UrineORDER#: [id number] ORDERED BY: CONCEPCIÓN WAGNER SOURCE: Urine Voided Urine COLLECTED: 08/30/24 11:14 ANTIBIOTICS AT [facility]BAR[facility].: RECEIVED : 08/30/24 11:14 Culture, Urine PRELIM 09/01/24 17:28 Performed at [place] [address] [place], [place] [id number] ([phone] Proteus mirabilis >100,000 CFU/ML Identification by MALDI-TOF Enterobacter cloacae complex >100,000 CFU/ML Identification by MALDI-TOFNoNorthern Colorado Rehabilitation HospitalComment on above: Performed By: #### PGLU #### [facility] [address] [place] [address] Jhcmzgkrfn A1Con 17-81-6395Zvzjotb [Mass/Vol]151 mg/dLNoNorthern Colorado Rehabilitation HospitalComment on above:Order Comment: Collection has been rescheduled by JOHN at 08/29/2024 14:17 Reason:Patient not in room until around 14:45Result Comment: The ADA and AACC recommend providing the estimated average glucose result to permit better patient understanding of their HBA1c result. Performed at [facility], [address] [place] [address] .HbA1c (Bld) [Mass fraction]6.9 %Critically high4.0-6.0[facility] HospitalComment on above:Order Comment: Collection has been rescheduled by JOHN at 08/29/2024 14:17 Reason:Patient not in room until around 14:45POCT Glucoseon 22-33-5604Rgjijjk [Mass/Vol]97 mg/kEErkvue95-29Fdbwe80 [address] StreetComment on above:Performed By: #### PGLU #### [facility] [address] [place] [address] KUL Performed [facility] HospitalComment on above:Performed By: #### PGLU #### [facility] [address] [place] [address] Ogvezil [Mass/Vol]104 mg/dLCritically lelc72-26Qbtdq80 [address] StreetComment on above:Performed By: #### PGLU #### [facility] [address] [place] [address] CCJ Performed [facility] HospitalComment on above:Performed By: #### PGLU #### [facility] [address] [place] [address] Ggkbvlz [Mass/Vol]271 mg/dLCritically xevl62-76Jbneu[address] [place], [place] [address]Comment on above:Performed By: #### PGLU #### [facility] [address] [place] [address] SIE Performed onPresbyterian/St. Luke's Medical CenterComment on above:Performed By: #### PGLU #### [facility] [address] [place] [address] Tubungg [Mass/Vol]224 mg/dLCritically vkuk08-07OyholKeefe Memorial HospitalComment on above:Performed By: #### CBCWD #### [facility] [address] [place] [address] NIY Performed onPresbyterian/St. Luke's Medical CenterComment on above:Performed By: #### CBCWD #### [facility] [address] [place] [address] Mtcrqtzsgr, reflex to microscopicon 50-44-2316Hywpvmxrd Ql (U) NegativeEllis Island Immigrant HospitalComment on above:Performed By: #### CBCWD #### [facility] [address] [place] [address] Ozizibu (U)CLOUDYAbnormalClearMKeefe Memorial HospitalComment on above:Performed By: #### CBCWD #### [facility] [address] [place] [address] Hgzrt (U)YellowNormalStraw/YellUchealth Highlands Ranch HospitalComment on above:Performed By: #### CBCWD #### [facility] [address] [place] [address] Mrwphmb Ql (U)[facility] Comment on above:Performed By: #### CBCWD #### [facility] [address] [place] [address] Wjfqmeutnw Ql (U)NegativeNormalNegRose Medical Center Comment on above:Performed By: #### CBCWD #### [facility] [address] [place] [address] Qmijanw Ql (U)NegativeNormalNegRose Medical Center Comment on above:Performed By: #### CBCWD #### [facility] [address] [place] [address] Lvqbaszxi esterase Test strip Ql (U)MODERATEAbnormalNegRose Medical CenterComment on above:Performed By: #### CBCWD #### [facility] [address] [place] [address] Chxudwt Ql (U)NegativeNormalNegRose Medical Center Comment on above:Performed By: #### CBCWD #### [facility] [address] [place] [address] dT (U)7.5 [pH]Normal5.0-9.0[facility] HospitalComment on above:Performed By: #### CBCWD #### [facility] [address] [place] [address] Whcdsro Ql (U)TRACEAbnormWest Springs Hospital Comment on above:Performed By: #### CBCWD #### [facility] [address] [place] [address] Wklomeho gravity (U) [Rel density]1.832Hfrptz3.005-1.03[facility] HospitalComment on above:Performed By: #### CBCWD #### [facility] [address] [place] [address] Ovqaoxkfcxue Qn (U)0.2 {Ancelmo'U}/dLNormal< 2.0[facility] HospitalComment on above:Performed By: #### CBCWD #### [facility] [address] [place] [address] Bumop Microscopicon 10-30-1739Cqjfdljl LM Nom (Urine sed)1+ Triple PhosAbnormalNone SeenUchealth Highlands Ranch HospitalComment on above:Performed By: #### PGLU #### [facility] [address] [place] [address] Fsdjwtgfwr cells LM Ql (Urine sed)0-2NormalUchealth Highlands Ranch HospitalComment on above:Performed By: #### PGLU #### [facility] [address] [place] [address] Nmohfxa casts LM Ql (Urine sed)2-0Rdxibt5-0LwlycUchealth Highlands Ranch HospitalComment on above:Performed By: #### PGLU #### [facility] [address] [place] [address] Evwxb Amorphous1+NormalUchealth Highlands Ranch HospitalComment on above:Performed By: #### PGLU #### [facility] [address] [place] [address] Adzkp BacteriaFEWAbnormalNegativeUchealth Highlands Ranch Hospital Comment on above:Performed By: #### PGLU #### [facility] [address] [place] [address] [facility] Comment on above:Performed By: #### PGLU #### [facility] [address] [place] [address] Jvtwt DJA9-6Inkkkg5-8AothmKeefe Memorial HospitalComment on above: Performed By: #### PGLU #### [facility] [address] [place] [address] Hityi FET76-31Wvlnzzdy5-5DkdftUchealth Highlands Ranch HospitalComment on above:Performed By: #### PGLU #### [facility] [address] [place] [address] DTSU Miscellaneous test 1on 72-58-1950Nmhyycc [id number] [facility] HospitalComment on above:Order Comment: Specimen cancelled by COURT at 16:49 08/29/2024. DuplicatePerformed By: #### CBCWD #### [facility] [address] [place] [address] Gwztmok [id number] Highlands Ranch HospitalComment on above:Performed By: #### PGLU #### [facility] [address] [place] [address] Qkxqz Metabolic Panelon 24-10-8611Ozygt gap [Moles/Vol]12 mmol/L Normal9-15[facility] HospitalComment on above:Order Comment: Collection has been rescheduled by JOHN at 08/29/2024 14:17 Reason:Patient not in room until around 14:45Performed By: #### CBCWD #### [facility] [address] [place] [address] Iswnngd [Mass/Vol]8.9 mg/dLNormal8.5-9.9[facility] HospitalComment on above:Order Comment: Collection has been rescheduled by JOHN at 08/29/2024 14:17 Reason:Patient not in room until around 14:45Performed By: #### CBCWD #### [facility] [address] [place] [address] Tcvihlep [Moles/Vol]101 mmol/RPcutvk54-720DrjbmUchealth Highlands Ranch HospitalComment on above:Order Comment: Collection has been rescheduled by JOHN at 08/29/2024 14:17 Reason:Patient not in room until around 14:45Performed By: #### CBCWD #### [facility] [address] [place] [address] RH4 [Moles/Vol]23 mmol/CLvlzza69-92VlosuUchealth Highlands Ranch Hospital Comment on above:Order Comment: Collection has been rescheduled by JOHN at 08/29/2024 14:17 Reason:Patient not in room until around 14:45Performed By: #### CBCWD #### [facility] [address] [place] [address] Wcyvfbbilk [Mass/Vol]0.75 mg/dLNormal0.50-0.90[facility] HospitalComment on above:Order Comment: Collection has been rescheduled by JOHN at 08/29/2024 14:17 Reason:Patient not in room until around 14:45Performed By: #### CBCWD #### [facility] [address] [place] [address] ZQS>90.0Normal>60[facility] HospitalComment on above:Order Comment: Collection has been rescheduled by JOHN at 08/29/2024 14:17 Reason:Patient not in room until around 14:45Result Comment: Pediatric calculator link https://www.kidney.org/professionals/kdoqi/gfr_calculatorped Effective Jan 16, [...] or following therapy that affects renal tubular secretion.Performed By: #### CBCWD #### [facility] [address] [place] [address] Dflslvi [Mass/Vol]106 mg/dLCritically wgmh79-06ZaevyKeefe Memorial HospitalComment on above:Order Comment: Collection has been rescheduled by JOHN at 08/29/2024 14:17 Reason:Patient not in room until around 14:45 Performed By: #### CBCWD #### [facility] [address] [place] [address] Frrpkmscf [Moles/Vol]4.5 mmol/LNormal3.4-4.9[facility] HospitalComment on above:Order Comment: Collection has been rescheduled by JOHN at 08/29/2024 14:17 Reason:Patient not in room until around 14:45Performed By: #### CBCWD #### [facility] [address] [place] [address] Lxoopl [Moles/Vol]136 mmol/RIpcwyi181-631UywzyUchealth Highlands Ranch HospitalComment on above:Order Comment: Collection has been rescheduled by JOHN at 08/29/2024 14:17 Reason:Patient not in room until around 14:45Performed By: #### CBCWD #### [facility] [address] [place] [address] Daxd nitrogen [Mass/Vol]20 mg/dLNormal6-20[facility] HospitalComment on above:Order Comment: Collection has been rescheduled by JOHN at 08/29/2024 14:17 Reason:Patient not in room until around 14:45Performed By: #### CBCWD #### [facility] [address] [place] [address] Ponltcqxhk A1Con 86-51-2137Chyvgbt [Mass/Vol]154 mg/dLNoNorthern Colorado Rehabilitation HospitalComment on above:Result Comment: The ADA and AACC recommend providing the estimated average glucose result to permit better patient understanding of their HBA1c result. Performed at [facility], [address] [place] [id number] .HbA1c (Bld) [Mass fraction]7.0 %Critically high4.0-6.0[facility] HospitalPOCT Glucoseon 45-58-0817Mgghdpx [Mass/Vol]114 mg/dL Critically vgza56-56XwfrgKeefe Memorial HospitalComment on above:Performed By: #### PGLU #### [facility] [address] [place] [address] KMZ Performed onRED LAKE INDIAN HEALTH SERVICES HOSPITALUMcKee Medical CenterComment on above:Performed By: #### PGLU #### [facility] [address] [place] [address] Tbqbjtr [Mass/Vol]156 mg/dLCritically rjut46-84Pwtjd[address] [place], [place] [address]Comment on above:Performed By: #### CBCWD #### [facility] [address] [place] [address] YQT Performed onPresbyterian/St. Luke's Medical CenterComment on above:Performed By: #### CBCWD #### [facility] [address] [place] [address] Kqmimhr [Mass/Vol]212 mg/dLCritically qado48-24Pmqrx [facility] Medical CenterComment on above:Performed By: #### PGLU #### [facility] [address] [place] [address] ARX Performed onPresbyterian/St. Luke's Medical CenterComment on above:Performed By: #### PGLU #### [facility] [address] [place] [address] Pdhrvlr [Mass/Vol]129 mg/dLCritically lwtb28-44Itgrk [facility] Medical CenterComment on above:Performed By: #### PGLU #### [facility] [address] [place] [address] PIO Performed [facility] HospitalComment on above:Performed By: #### PGLU #### [facility] [address] [place] [address] LLELMV HEALTHon 58-23-5043KVUBLX HEALTHHNO ID: [id number] Author: AKOSUA RODARTE RT(R) Service: Radiology Author Type: Technologist Type: Allied Health Filed: 08/28/2024 14:59 Note Text: Radiology Service Progress Note PATIENT NAME: Chikis Tobar DATE OF SERVICE: August 28, 2024 TIME: 2:58 PM PATIENT IDENTITY VERIFICATION COMPLETED USING TWO (2) IDENTIFIERS: Name and Date of confirmed by patient verbally. FALL SCREENING: Has the patient had 2 falls in the last year or 1 fall with injury or currently using an Ambulatory Assistive Device (Walker, Cane, Wheelchair, Crutches, etc.)? No PATIENT GENDER DATA: Assigned female at . status: status: NO. PATIENT RELEVANT IMPLANT DATA REVIEWED: Not Applicable PATIENT PRESENTS WITH AN IMPLANTABLE OR ATTACHED AIRCRAFT DESIGN ENGINEER: No RADIOLOGY DEPARTMENT: General X-ray: Exam(s) Completed: Chest X-Ray Spine X-Ray(s): Cervical LAT Skull X-Ray PERIPHERAL IV DATA: Not applicable SIGNED BY: RT Christophe(R) August 28, 2024 2:58 PMNFree Hospital for Women Metab 2000 Pnl SerPlon 08-28-2024 Calcium [Mass/Vol]8.9 mg/dLNormal8.5-10.2FLancaster Municipal Hospital Comment on above:Order Comment: Specimen Type: BLOOD SPECIMEN Ordering Facility: [facility] Address: [address] [place], [place] [address]Performed By: #### 10815-8 #### [facility] CLIA [id number] [address] [place] [address] [place] AMERICAChloride [Moles/Vol]105 mmol/LNormal 98-107T[facility] City HospitalComment on above:Order Comment: Specimen Type: BLOOD SPECIMEN Ordering Facility: [facility] Address: [address] [place], [place] [address]Performed By: #### 87312-1 #### [facility] CLIA [id number] [address] [place] [address] [place] AMERICACO2 [Moles/Vol]22 mmol/NPzyctp60-85 [facility] HospitalComment on above:Order Comment: Specimen Type: BLOOD SPECIMEN Ordering Facility: [facility] Address: [address] [place], [place] [address]Performed By: #### 67404-2 #### [facility] CLIA [id number] [address] [place] [address] [place] AMERICACreatinine [Mass/Vol]0.55 mg/dLLow 0.58-0.96[facility] HospitalComment on above:Order Comment: Specimen Type: BLOOD SPECIMEN Ordering Facility: [facility] Address: [address] [place], [place] [address]Performed By: #### 90124-5 #### [facility] CLIA [id number] [address] [place] [address] [place] AMERICAGlucose [Mass/Vol]124 mg/rKSxwg26-84 [facility] HospitalComment on above:The [place] Diabetes Association (ADA) provides guidance for cutoff [...] hyperglycemia or hyperglycemic crisis, random plasma glucose resultsgreater than or equal to 200 mg/dL meet the criteria for diagnosis of diabetes.Reference: Standardsof Medical Care in Diabetes 2016, [place] Diabetes Association. Diabetes Care. 2016.39(Suppl 1). Order Comment: Specimen Type: BLOOD SPECIMEN Ordering Facility: [facility] Address: [address] [place], [place] [address]Result Comment: The [place] Diabetes Association (ADA) provides guidance for cutoff [...] Standards of Medical Care in Diabetes 2016, [place] Diabetes Association. Diabetes Care. 2016.39(Suppl 1).Performed By: #### 10997-4 #### [facility] CLIA [id number] [address] [place] [address] [place] AMERICAPotassium [Moles/Vol]4.2 mmol/L Normal3.7-5.1FLancaster Municipal HospitalComment on above:Order Comment: Specimen Type: BLOOD SPECIMEN Ordering Facility: [facility] Address: [address] [place], [place] [address]Performed By: #### 42424-6 #### [facility] CLIA [id number] [address] [place] [address] [place] AMERICASodium [Moles/Vol]137 mmol/LNormal 136-144T[facility] City HospitalComment on above:Order Comment: Specimen Type: BLOOD SPECIMEN Ordering Facility: [facility] Address: [address] [place], [place] [address]Performed By: #### 19258-4 #### [facility] CLIA [id number] [address] [place] [address] [place] AMERICAUrea nitrogen [Mass/Vol]20 mg/dL Normal7-21[facility] HospitalComment on above:Order Comment: Specimen Type: BLOOD SPECIMEN Ordering Facility: [facility] Address: [address] [place], [place] [address]Performed By: #### 10410-4 #### [facility] CLIA [id number] [address] [place] [address] metabolic 2000 panelon 71-65-6416Zjdphlvqdd and Glomerular filtration rate.predicted panel (S/P/Bld)106 mL/min/1.73m???Normal>=60FaBaystate Noble HospitalComment on above:Order Comment: Specimen Type: BLOOD SPECIMEN Ordering Facility: [facility] Address: [address] [place], [place] [address]Result Comment: Estimated Glomerular Filtration Rate (eGFR) is calculated using the 2020 CKD-EPI cre atinine equation. This equation utilizes serum creatinine, sex, and age as parameters. The creatinine assay has traceable calibration to isotope dilution- mass spectrometry. Refer to KDIGO guidelines for clinical interpretation. In patients with unstable renal function, e.g. those with acute kidney injury, the eGFR may not accurately reflect actual GFR.Performed By: #### 61303-3 #### [facility] CLIA [id number] [address] [place], [place] [address]CB panel Auto (Bld)on 21-49-4373VNH (Bld) [#/Vol]7.22 10*3/uLNormal3.70-11.00[facility] HospitalComment on above: Order Comment: Specimen Type: BLOOD SPECIMEN Ordering Facility: [facility] Address: [address] [place], [place] [address]Performed By: #### 09808-0 #### [facility] CLIA [id number] [place], [place] [address]CNDSon [id number] ID: [id number] Author: CARO BRADLEY MD Service: Hospital Medicine Author Type: Physician Type: Discharge Summary Filed: 08/29/2024 11:15 Note Text: DISCHARGE SUMMARY PATIENT NAME: Chikis Tobar ADMISSION DATE: 08/22/2024 DISCHARGE DATE: 08/29/2024 Attending Physician: Caro Bradley MD Code Status: Prior PCP: Kalli Simons MD Highest Readmission Risk Score: 18 The 30 day readmissions risk score is derived from an internally validated risk model which evaluates patient level characteristics, utilization history, medication orders and lab results up until the day of discharge. Patients with a score of 39 or above are considered highest risk for readmission. Specific patient level drivers will be listed at the bottom of the summary. TRANSITIONS OF CARE CRITICAL ISSUES: GORDON MEDICATION CHANGES: Please see discharge medication for further detail INCIDENTAL OR ACTIONABLE FINDING (Last Refresh: 08/29/2024 11:12 AM) Test(s): XR CHEST 1V FRONTAL REASON FOR HOSPITALIZATION/FINAL DIAGNOSIS: Closed fracture of distal end of left femur status postsurgery HOSPITAL PROBLEMS: Active Hospital Problems Diagnosis POA Closed fracture of distal end of left femur, unspecified fracture morphology, initial encounter ([facility]) Yes Postoperative pain Unknown Vitamin D deficiency Unknown Pain due to fracture Unknown Labile blood glucose Unknown MARLENA (acute kidney injury) Yes Bilateral edema of lower extremity Yes Non healing left heel wound Yes Hydrocephalus (HCC) Yes Insulin pump in place Yes ABLA (acute blood loss anemia) Yes 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 Wound 10/11/23 1400 Pressure Injury Heel Posterior;Left (Active) Properties Placement Date 10/11/23 Placement Time 1400 Location Heel Primary Wound Type Pressure Injury If Pressure Injury, is it Device Related? If Yes, Add Device Type in Comment Box Yes Wound Location Orientation Posterior;Left Wound Description (Comments) purple nonblanchable Assessments 08/26/2024 8:20 PM IF PATIENT HAS A PRESSURE INJURY: WHEN WAS IT ACQUIRED? 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 She presents with a fall from wheelchair, and is admitted with left distal femur fracture with partial impaction. # Closed fracture of distal end of left femur, unspecified fracture morphology, initial encounter ([facility]) Presented with pain at the left knee/thigh after sustaining a mechanical fall from her wheelchair. X-ray at OSH: acute transverse and oblique fractures of distal left femoral metaphysis with partial impaction of the fracture components and slight lateral displacement of distal fracture component up to 6 mm. [facility]. Left lower extremity is in an immobilizer. 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 Initially had the 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 which was replaced with a [facility] shunt. She developed weakness and spasms of bilateral lower extremities as a result. Continues to be on posaconazole at home. Plan: - per ID to continue posaconazole until follow up with ID request for appointment was sent in the system below are patient MRIs done during the hospitalization stay MRI CERVICAL SPINE WO/W IVCON (08/26/2024 8:04 PM) MRI BRAIN WO/W IVCON (08/26/2024 8:04 PM) VA shunt was suggested by neurosurgery team after MRI # Asthma ([facility]) Stable, physical examination showing good bilateral air entry without added sounds, patient maintaining O2 sat at target on room air. Plan: - Preoperative chest x-ray - Incentive spirometry # Bilateral edema of lower extremity # Essential hypertension # Palpitations Plan: - Hold METALIZER lisinopril will resume after surgery when BP will allow - Hold METALIZER bumetanide resume after surgery on discharge - (more content not included)...NormalSaint Elizabeth's Medical CenterLT PROmiladis 08-28-2024 CONSULT [facility] ID: [id number] Author: VERONICA RODRIGUEZ MD Service: Infectious Disease Author Type: Physician Type: Consult Progress Note Filed: 09/01/2024 00:40 Note Text: INFECTIOUS DISEASE CONSULT PROGRESS NOTES PATIENT NAME: Chikis Tobar SERVICE DATE: 08/28/2024 Assessment/Plan fungal meningitis with leptomeningeal enhancement-- --since 06/2022 last MRI 10/18/23 showed no change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 [facility] Address: [address] [place], [place] [address]Performed By: #### 81826-3 #### [facility] [place] [id number] [address] [place], [place] [address]RB LM.HPF (Urine sed) [#/Area]0-3 /HPFNormal0-3 /HPFFasymmes hospital HospitalComment on above:Order Comment: Specimen Type: BLOOD SPECIMEN Ordering Facility: [facility] Address: [address] [place], [place] [address]Performed By: #### 69014-9 #### [facility] CLIA [id number] [address] [place] [address] [place] AMERICASpecific gravity (U) [Rel density] 1.028Rmsyxj6.005-1.030Fasymmes hospital HospitalComment on above:Order Comment: Specimen Type: BLOOD SPECIMEN Ordering Facility: [facility] Address: [address] [place], [place] [address]Performed By: #### 44829-5 #### [facility] CLIA [id number] [address] [place] [address] [place] AMERICAUrobilinogen Ql (U)NormalNormal NormalCenterpoint HospitalComment on above:Order Comment: Specimen Type: BLOOD SPECIMEN Ordering Facility: [facility] Address: [address] [place], [place] [address]Performed By: #### 94382-6 #### [facility] CLIA [id number] [address] [place] [address] [place] AMERICAWBC LM.HPF (Urine sed) [#/Area]6-10 /HPFAbnormal0-5 /HPFCenterpoint HospitalComment on above:Order Comment: Specimen Type: BLOOD SPECIMEN Ordering Facility: [facility] Address: [address] [place], [place] [address]Performed By: #### 66659-1 #### [facility] CLIA [id number] [address] [place] [address] [place] AMERICABacteria Wnd Culton 08-25-2024 Bacteria identified Cx Nom (Wound)ORGANISM ID: 2 Rare skin mariano GRAM STAIN: No organisms seen No Polymorphonuclear LeukocytesNormalCenterpoint HospitalComment on above:Performed By: #### 6462-6 ####[facility] LABCLIA [id number] [place] [address] [place] AMERICABas Metab 2000 Pnl SerPlon 40-81-6230Sgwjoqb [Mass/Vol]8.3 mg/dLLow8.5-10.2FLancaster Municipal HospitalComment on above:Order Comment: Specimen Type: BLOOD SPECIMEN Ordering Facility: [facility] Address: [address] [place], [place] [address]Performed By: #### 85591-4 #### [facility] CLIA [id number] [address] [place] [address] [place] AMERICAChloride [Moles/Vol]108 mmol/LHigh 98-107T[facility] City HospitalComment on above:Order Comment: Specimen Type: BLOOD SPECIMEN Ordering Facility: [facility] Address: [address] [place], [place] [address]Performed By: #### 25688-4 #### [facility] CLIA [id number] [address] [place] [address] [place] AMERICACO2 [Moles/Vol]18 mmol/AWiu40-82 [facility] HospitalComment on above:Order Comment: Specimen Type: BLOOD SPECIMEN Ordering Facility: [facility] Address: [address] [place], [place] [address]Performed By: #### 80081-9 #### [facility] CLIA [id number] [address] [place] [address] [place] AMERICACreatinine [Mass/Vol]0.72 mg/dL Normal0.58-0.96Twin City HospitalComment on above:Order Comment: Specimen Type: BLOOD SPECIMEN Ordering Facility: [facility] Address: [address] [place], [place] [address]Performed By: #### [id number] #### [facility] CLIA [id number] [address] [place] [address] [place] OF AMERICAGlucose [Mass/Vol]273 mg/xOEwms69-00 [facility] City HospitalComment on above:The [place] Diabetes Association (ADA) provides guidance for cutoff [...] hyperglycemia or hyperglycemic crisis, random plasma glucose resultsgreater than or equal to 200 mg/dL meet the criteria for diagnosis of diabetes.Reference: Standardsof Medical Care in Diabetes 2016, [place] Diabetes Association. Diabetes Care. 2016.39(Suppl 1). Order Comment: Specimen Type: BLOOD SPECIMEN Ordering Facility: [facility] Address: [address] [place], [place] [id number] Comment: The [place] Diabetes Association (ADA) provides guidance for cutoff [...] Standards of Medical Care in Diabetes 2016, [place] Diabetes Association. Diabetes Care. 2016.39(Suppl 1).Performed By: #### 10830-2 #### [facility] CLIA [id number] [address] [place] [address] [place] AMERICAPotassium [Moles/Vol]4.8 mmol/L Normal3.7-5.1FLancaster Municipal HospitalComment on above:Order Comment: Specimen Type: BLOOD SPECIMEN Ordering Facility: [facility] Address: [address] [place], [place] [address]Performed By: #### [id number] #### [facility] CLIA [id number] [address] [place] [address] [place] AMERICASodium [Moles/Vol]135 mmol/LLow 136-144T[facility] City HospitalComment on above:Order Comment: Specimen Type: BLOOD SPECIMEN Ordering Facility: [facility] Address: [address] [place], [place] [address]Performed By: #### [id number] #### [facility] CLIA [id number] [address] [place] [address] [place] AMERICAUrea nitrogen [Mass/Vol]30 mg/dLHigh 7-21T[facility] City HospitalComment on above:Order Comment: Specimen Type: BLOOD SPECIMEN Ordering Facility: [facility] Address: [address] [place], [place] [address]Performed By: #### [id number] #### [facility] CLIA [id number] metabolic 2000 panelon [id number] and Glomerular filtration rate.predicted panel (S/P/Bld)97 mL/min/1.73m???Normal>=60FaBaystate Noble HospitalComment on above:Order Comment: Specimen Type: BLOOD SPECIMEN Ordering Facility: [facility] Address: [address] [place], [place] [address]Result Comment: Estimated Glomerular Filtration Rate (eGFR) is calculated using the 2020 CKD-EPI cre atinine equation. This equation utilizes serum creatinine, sex, and age as parameters. The creatinine assay has traceable calibration to isotope dilution- mass spectrometry. Refer to KDIGO guidelines for clinical interpretation. In patients with unstable renal function, e.g. those with acute kidney injury, the eGFR may not accurately reflect actual GFR.Performed By: #### 88215-8 #### [facility] CLIA [id number] [place] [address] panel Auto (Bld)on 24-31-1853NMW (Bld) [#/Vol]6.44 10*3/uLNormal3.70-11.00FaBaystate Noble HospitalComment on above: Order Comment: Specimen Type: BLOOD SPECIMEN Ordering Facility: [facility] Address: [address] [place], [place] [address]Performed By: #### 37510-4 #### [facility] IA [id number] [place], [place] [address]CNPNon [id number] (FVPK1B) CHIKIS TOBAR ([id number]) 1965 F Date Time Provider Department 08/25/24 JENNIFER MORTON FVPK1B During your visit today, we recorded the following information about you: Allergies As of Date: 08/25/2024 Noted Allergy Reaction DEMERAL (MEPERIDINE) 02/09/2021 8 - GI Upset Comments: Nausea, pt states room spins FLEXERIL (CYCLOBENZAPRINE) 02/09/2021 4 - Hives ORPHENADRINE 09/30/2015 14 - Other: See Comments 4 - Hives 2 - Rash VERSED (MIDAZOLAM) 02/18/2021 1 - Mental Status Change Date Reviewed: 08/25/2024 Reviewed by: Humza Fall, ALISTAIR - Fully Assessed Reason for Visit: Appointment [186] Cmt: Patient still in the hospital, scheduled Hip Fracture Liaison Consult Appointment with on 10/09 at 12:00PM. Sent My chart message and mailed out reminder Prescriptions as of 08/25/2024 - baclofen 10 mg tablet Take 1 tablet by mouth two times a day AND 2 tablets daily at bedtime. - potassium chloride SR (MICRO-K) 10 mEq CR capsule Take 1 capsule by mouth every afternoon. - bumetanide (BUMEX) 1 mg tablet Take 1 tablet by mouth every 12 hours. - oxyCODONE ir (OXYIR) 5 mg capsule Take 5 mg by mouth every 4 hours as needed for pain. - cyanocobalamin (VITAMIN B-12) 1,000 mcg tab Take 1,000 mcg by mouth. - glucagon 3 mg/actuation nasal spray (BAQSIMI) - ondansetron orally disintegrating (ZOFRAN ODT) 4 mg disintegrating tablet Take 4 mg by mouth every 6 hours as needed. - DULCOLAX, BISACODYL, RECTAL by RECTAL route once daily as needed. - lisinopril (ZESTRIL) 40 mg tablet Take 40 mg by mouth once daily. - acetaminophen (TYLENOL) 650 mg suppository 650 mg by RECTAL route every 4 hours as needed for pain or fever (specify temp.). - dextrose 40 % gel Take 15 g by mouth as needed. - insulin aspart U-100 (NOVOLOG) 100 unit/mL Use via insulin pump Max daily dose 100 units, DX: E10.65 - acetaminophen (TYLENOL) 325 mg tablet 2 tablets by ORAL/FEEDING TUBE route every 6 hours as needed for pain. - aspirin, enteric coated (ADULT LOW DOSE ASPIRIN) 81 mg EC tablet Start ASA 81 mg BID on 10/24 Patient should start on October 25, 2023. - metoprolol succinate ER (TOPROL XL) 100 mg Take 1 tablet by mouth every 12 hours at 6 am and 6 pm. - senna-docusate (SENNA-S) 8.6-50 mg per tablet 1 tablet by ORAL/FEEDING TUBE route two times a day. - lactobacillus rhamnosus (CULTURELLE) 10 billion cell capsule (Discontinued) Take 1 capsule by mouth once daily. Facility-Administered Medications as of 08/25/2024 - iv contrast (radiology procedure) - iv contrast (radiology procedure) - polyethylene glycol 3350 17 g packet - ergocalciferol (vitamin D2) 50,000 Units cap(s) (DRISDOL) - aspirin, enteric coated 81 mg tab(s) - metoprolol succinate ER 50 mg tab(s) (TOPROL XL) - acetaminophen 325-650 mg tab(s) (TYLENOL) - baclofen 10 mg tab(s) - baclofen 20 mg tab(s) - bisacodyl 10 mg suppository (DULCOLAX) - ondansetron (PF) 4 mg injection (ZOFRAN) - heparin 5,000 Units injection - NaCl 0.9% iv flush bag - dextrose 40 % 15 g - glucagon 1 mg injection - dextrose 10% iv bolus - posaconazole DR 300 mg tab(s) (NOXAFIL) - insulin aspart human 300 Units per 3mL vial for insulin pump (SELF ADMINISTERED) - oxyCODONE IR 5-10 mg tab(s) (ROXICODONE) - morphine 2 mg injection Problem List As Of Date 08/25/2024 Noted Resolved Neoplasm of bladder [D49.4] 02/16/2021 Asthma (HCC) [J45.909] 02/16/2021 Essential hypertension [I10] 02/16/2021 Palpitations [R00.2] 02/16/2021 Obesity [E66.9] 02/16/2021 06/11/2022 Diabetes mellitus type I (HCC) [E10.9] Malignant neoplasm of urinary bladder (HCC) [C6*04/20/2021 Small bowel obstruction (HCC) [K56.609] 12/16/2021 12/21/2021 Severe protein-calorie malnutrition (HCC) [E43] 12/20/2021 Hypokalemia [E87.6] 12/21/2021 Hypophosphataemia [E83.39] 12/21/2021 Hyponatremia [E87.1] 01/05/2022 Hypomagnesemia [E83.42] 01/05/2022 Hydronephrosis [N13.30] 01/09/2022 Chronic low back pain without sciatica [M54.50,*03/13/2022 Lesion of lumbar spine [M89.9] 06/10/2022 Spinal cord mass (HCC) [G95.89] 06/15/2022 Unstageable pressure ulcer of sacral region (HC*06/16/2022 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] 09/05/2023 Tibia/fibula fracture, left, closed, initial en*10/07/2023 Dyslipidemia [E78.5] 10/07/2023 10/18/2023 Insulin pump status [Z96.41] 10/07/2023 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*10/07/2023 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 Author Type: Registered Nurse Type: Consults Filed: 08/25/2024 14:00 Note Text: WOUND CARE SERVICE CONSULT NOTE SERVICE DATE: 08/25/2024 SERVICE TIME: 1230 pm HISTORY OF PRESENT ILLNESS: Chikis Tobar is a 59 year old female is being seen with the admitting diagnosis of Left femur fracture with partial impaction. Wound Care consulted for left posterior heel pressure injury. Per the patient she has a chronic pressure injury on the left heel as a result of a walking boot that was not inflated during use. Pressure injury was previously unstageable but was then debrided at an outside wound clinic. Wound is now a stage 3 full thickness healing pressure injury. She has wound care weekly to care for the wound. Wound bed pink surrounding moisture, no odor, small amount of serosanguinous drainage. Dressing applied. PAST MEDICAL HISTORY Diagnosis Date Asthma (HCC) 02/16/2021 Bladder cancer (HCC) 02/2021 urothelial carcinoma Diabetes mellitus type 1 (HCC) 04/13/2021 diagnosed at age 6 Fracture of tibia 09/2023 HTN (hypertension) 02/16/2021 Meningitis (HCC) 2022 Patient reported shunt placement (with subsequent removal and re-placement in September,) Neoplasm of bladder 02/16/2021 Obesity 02/16/2021 Palpitations 02/16/2021 PAST SURGICAL HISTORY Procedure Laterality Date CYSTECTOMY W/BI PELVIC LYMPHADENECTOMY 04/2021 CYSTO.PANENDO 05/25/2021 EXPLORATORY OF ABDOMEN 12/17/2021 Reduction of small-bowel volvulus PAST SURGICAL HISTORY OF right ovary removed PAST SURGICAL HISTORY OF ORIF right ankle PAST SURGICAL HISTORY OF 02/18/2021 TURBT REMOVAL OF BLADDER AND NODES VAGINAL HYSTERECTOMY Social History Tobacco Use Smoking status: Never Smokeless tobacco: Never Vaping Use Vaping status: Never Used Substance Use Topics Alcohol use: Not Currently Drug use: Never FAMILY HISTORY Problem Relation Age of Onset Anesthesia Problems No Family History Colon Cancer No Family History Aneurysm No Family History MEDICATIONS: Current Facility-Administered Medications Medication Dose Route Frequency acetaminophen 325-650 mg tab(s) (TYLENOL) 325-650 mg ORAL/FEEDING TUBE q 6 H PRN baclofen 10 mg tab(s) 10 mg ORAL BID 9a/3p And baclofen 20 mg tab(s) 20 mg ORAL AT BEDTIME bisacodyl 10 mg suppository (DULCOLAX) 10 mg RECTAL DAILY PRN ondansetron (PF) 4 mg injection (ZOFRAN) 4 mg INTRAVENOUS q 6 H PRN heparin 5,000 Units injection 5,000 Units SUBCUTANEOUS q 12 H NaCl 0.9% iv flush bag 20 mL INTRAVENOUS PRN dextrose 40 % 15 g 15 g ORAL PRN Or glucagon 1 mg injection 1 mg INTRAMUSCULAR PRN Or dextrose 10% iv bolus 12.5 g INTRAVENOUS PRN posaconazole DR 300 mg tab(s) (NOXAFIL) 300 mg ORAL DAILY insulin aspart human 300 Units per 3mL vial for insulin pump (SELF ADMINISTERED) SUBCUTANEOUS CONTINUOUS oxyCODONE IR 5-10 mg tab(s) (ROXICODONE) 5-10 mg ORAL q 6 H PRN morphine 2 mg injection 2 mg INTRAVENOUS q 4 H PRN metoprolol succinate ER 50 mg tab(s) (TOPROL XL) 50 mg ORAL q 12 H 6a/6p aspirin, enteric coated 81 mg tab(s) 81 mg ORAL BID iv contrast (radiology procedure) INTRAVENOUS DIRECTED PRN iv contrast (radiology procedure) INTRAVENOUS DIRECTED PRN polyethylene glycol 3350 17 g packet 17 g ORAL DAILY ergocalciferol (vitamin D2) 50,000 Units cap(s) (DRISDOL) 50,000 Units ORAL 1/WK ALLERGIES Allergen Reactions Demeral [Meperidine] GI Upset Nausea, pt states room spins Flexeril [Cyclobenz* Hives Orphenadrine Other: See Comments, Hives, Rash Versed [Midazolam] Mental Status Change Objective PHYSICAL EXAM: BP 119/46 Pulse 100 Temp (Src) 99 (Oral) Resp 19 Ht 5' 6 (1.68m) Wt 178 lb 12.7 oz (81.1kg) SpO2 97% BMI 28.87 kg/(m2). O2 Therapy: Room Air Presenting wound information: Wound 10/11/23 1400 Pressure Injury Heel Posterior;Left (Active) Assessments 08/25/2024 12:31 PM Wound Image IF PATIENT HAS A PRESSURE INJURY: WHEN WAS IT ACQUIRED? (Document one time during this admission) Present on Admission during this Encounter Pressure Injury Stage Stage 3 Site Assessment [place] Raquel-Wound Assessment Moist Shape irregular Wound Length (cm) 1 cm Wound Width (cm) 0.8 cm Wound Surface Area (cm2) 0.8 cm2 Wound Depth (cm) 0.2 cm Wound Volume (cm3) 0.16 cm3 Drainage Description Serosanguineous Drainage Amount Small Odor None Raquel-Wound Treatment Skin Prep Treatments Cleansed Dressing Silver Alginate (AG);Foam- Adhesive Dressing Changed Changed Dressing Status Intact Impression/Recommendations Left posterior heel, stage 3 pressure injury, POA Clean wound with normal saline. Cut Calcium Alginate AG to fit the wound bed, apply to wound. Cover with a foam dressing. Change every other day. Barriers to Healing: Age, Medications, Mobility, and Moisture Pressure Injury Prevention: Heel offloading, Moisture management, Redistribution surf (more content not included)...[facility] [id number] [facility] ID: [id number] Author: VERONICA RODRIGUEZ MD Service: Infectious Disease Author Type: Physician Type: Consult Progress Note Filed: 08/27/2024 02:07 Note Text: INFECTIOUS DISEASE CONSULT PROGRESS NOTES PATIENT NAME: Chikis Tobar SERVICE DATE: 08/25/2024 Assessment/Plan fungal meningitis with leptomeningeal enhancement-- --since 06/2022 last MRI 10/18/23 showed no change in the 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 There is still persistent abnormal intrameduallary cord signal immediately above and below displaced cord, down to T7 but this is chronic for many months and unchanged. Similarly she has leptomeningeal enhancement and some intradural enhancement throughout the C-T and upper lumbar spine, but this also is now chronic and unchanged on recent MRI. CRP 0.5 on 11/01/23 continue posaconazole crp fungitel plan for MRI with and without contrast for brain and cervical spine during this admission. ordered h/o hydrocephalus. The patient [facility], in [facility].. FALL at home--> femur fracture-- 08/23--s/p OR--Daryl Morejon MD - Primary Preop Diagnosis: left supracondylar distal femur fracture S/P -- left femur intramedullary nail, periop receiving cefazolin left heel wound, appears to be pressure injury --POA culture --p wound care dm-1 Malignant neoplasm of urinary bladder. d/w pt and n staff interval hpi----pt reports her mri/s are overdue. ordered. . posaconazole level is low but is on appropriate dose 300 mgs/d S/P OR with ortho periop IV cefazolin / completed reports some pain in the lt leg rt heel chronic- follow cultures continue posaconazole. p level in progress crp 4.1( s/p fall) fungitel plan for MRI with and without contrast for brain and cervical spine during this admission. MEDICATIONS: Current Facility-Administered Medications Medication Dose Route Frequency acetaminophen 325-650 mg tab(s) (TYLENOL) 325-650 mg ORAL/FEEDING TUBE q 6 H PRN baclofen 10 mg tab(s) 10 mg ORAL BID 9a/3p And baclofen 20 mg tab(s) 20 mg ORAL AT BEDTIME bisacodyl 10 mg suppository (DULCOLAX) 10 mg RECTAL DAILY PRN ondansetron (PF) 4 mg injection (ZOFRAN) 4 mg INTRAVENOUS q 6 H PRN heparin 5,000 Units injection 5,000 Units SUBCUTANEOUS q 12 H NaCl 0.9% iv flush bag 20 mL INTRAVENOUS PRN dextrose 40 % 15 g 15 g ORAL PRN Or glucagon 1 mg injection 1 mg INTRAMUSCULAR PRN Or dextrose 10% iv bolus 12.5 g INTRAVENOUS PRN posaconazole DR 300 mg tab(s) (NOXAFIL) 300 mg ORAL DAILY insulin aspart human 300 Units per 3mL vial for insulin pump (SELF ADMINISTERED) SUBCUTANEOUS CONTINUOUS oxyCODONE IR 5-10 mg tab(s) (ROXICODONE) 5-10 mg ORAL q 6 H PRN morphine 2 mg injection 2 mg INTRAVENOUS q 4 H PRN metoprolol succinate ER 50 mg tab(s) (TOPROL XL) 50 mg ORAL q 12 H 6a/6p aspirin, enteric coated 81 mg tab(s) 81 mg ORAL BID iv contrast (radiology procedure) INTRAVENOUS DIRECTED PRN iv contrast (radiology procedure) INTRAVENOUS DIRECTED PRN OBJECTIVE PHYSICAL EXAM: BP 115/39 Pulse 90 Temp (Src) 99.3 (Oral) Resp 20 Ht 5' 6 (1.68m) Wt 178 lb 12.7 oz (81.1kg) SpO2 95% BMI 28.87 kg/(m2). O2 Therapy: Room Air Skin: There is no evident rash. Neck: Supple. Oropharynx clear. No evidence of thrush. No cervical lymphadenopathy. Chest: Decreased air entry, bilateral bases. Few rales heard. Cardiovascular: S1, S2 normal. No murmur, no gallop heard. Abdomen: Soft, nontender. Bowel sounds present. Extremities: The patient has weakness in the lower extremities, not able to lift the legs off the bed. She has a heel wound on the left leg stage 3, irregular margins. Minimal drainage. The patient has a left leg in splint. Pulses are palpable bilateral radial and bilateral femoral. Diagnostic tests reviewed for today's visit: Most recent labs and compared Most recent micro/ EKG Most recent imaging and compared Recent Labs 08/25/24 0449 08/24/24 0500 08/23/24 0438 WBC 6.44 7.05 6.15 HB 7.6* 8.0* 9.6* HCT 23.9* 24.8* 30.0* PLT 202 243 271 NA 135* 138 141 K 4.8 4.8 4.9 CHLOR 108* 106 114* CO2 18* 20* 17* BUN 30* 30* 44* CREAT 0.72 0.79 0.65 GLUC 273* 267* 147* CA 8.3* 8.8 9.0 CRP 4.1 08/22/2024 Veronica Rodriguez MD 08/25/2024 8:48 [facility] ID: [id number] Author: KIM DEE MD Service: Endocrinology Author Type: Resident Type: Consult Progress Note Filed: 08/25/2024 13:36 Note Text: Attestation signed by Rivas Wilks MD at 08/25/2024 2:14 PM Teaching Physician Note: I saw and evaluated the patient. I personally obtained the gordon and critical portions of the history and physical exam. I reviewed the resident's documentation and discussed the patient with the resident. I agree with the resident's medical decision making as documented in the resident's note. Helped patient adjust pump settings as follows: Basal rate increased to 1u/hr (was 0.85), and ISF increased to 25 (was 40) Rivas Wilks M.D [facility] Internal Medicine Inpatient PROGRESS NOTE PATIENT NAME: Chikis Tobar SERVICE DATE: 08/25/2024 SERVICE TIME: 10:40 AM HOSPITAL DAY: 3 PRIMARY CARE PHYSICIAN: Kalli Simons MD CODE STATUS: Code Status: Full Code Days: [phone], please page Kim Dee MD for patient issues either through [employer] or [employer]. Nights: [phone], please page [facility] night coverage pager [phone] for Team 1,2 AND3. Impression: Chikis Tobar is a 59 year old female presenting s/p fall from wheelchair, sustaining left supracondylar distal femur fracture, underwent left femur intramedullary nail on 08/23. Endocrine consulted for management of type 1 diabetes mellitus on insulin pump. She was diagnosed with type 1 diabetes mellitus at age 6. 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 No macrovascular complications. She recently established care with Dr Gupta as outpatient. She is using insulin pump - settings as follows: Basal Rate: 0.85 units/hr Insulin:Carbohydrate ratio: 1 units per 8 g carbohydrate Correction bolus: 1 unit insulin lowers glucose 40 mg/dL, correct to a target blood glucose of 110 mg/dL Most recent HbA1c 01/2024 was 6.6%. INTERVAL HPI / Subjective: Today is day # 3, patient - Did not have sensor on on 08/24, so not in automated mode. - Plans to restart sensor this AM, however no sensor was brought in by family members and transmitter is Physical Exam / Objective: BP (!) 136/47 Pulse 94 Temp 36.8 ?C (98.2 ?F) (Oral) Resp 16 Ht 167.6 cm (5' 6 ) Wt 81.1 kg (178 lb 12.7 oz) SpO2 97% BMI 28.86 kg/m? General Appearance: No acute distress HEENT: PERRLA Lungs: Clear Heart: Regular rate AND rhythm Abdomen: Soft Skin: Warm Musculoskeletal: left leg in a cast Neurologic/Psychiatric: Oriented to time, place AND person Intake/Output Summary (Last 24 hours) at 08/25/2024 1040 Last data filed at 08/25/2024 0327 Gross per 24 hour Intake -- Output 1600 ml Net -1600 ml Labs/Data: CBC: Recent Labs 08/25/2444808/24/24 05008/23/2443708/22/24 2342 WBC 6.44 7.05 6.15 6.71 HB 7.6* 8.0* 9.6* 10.7* PLT 202 243 271 297 MCV 91.2 90.2 90.4 92.0 RDWCV 14.9 15.2* 15.4* 15.4* COAG: Recent Labs 08/22/24 2342 APTT 29.1 INR <0.9* BMP: Recent Labs 08/25/2444808/24/24 05008/23/2443708/22/24 2342 GLUC 273* 267* 147* 133* NA 135* 138 141 143 K 4.8 4.8 4.9 4.7 CHLOR 108* 106 114* 116* CO2 18* 20* 17* 16* ANION 9 12 10 11 BUN 30* 30* 44* 51* CREAT 0.72 0.79 0.65 0.67 CHEM: Recent Labs 08/25/2444808/24/2449908/23/2443708/22/24 2342 CA 8.3* 8.8 9.0 9.2 MG -- -- -- 2.5* HEPATIC: No results for input(s): ALKPHOS , ALT , AST , TBILI , LIPASE in the last 168 hours. CARDIAC: No results for input(s): CKTEST , CKMB , CKMBP , TROPT , PBNP in the last 168 hours. URINALYSIS: Recent Labs 08/23/24 0233 SPGR 1.014 UGLUC Negative UBILI Negative UKET Negative UHB Negative UPROT Negative UWBC 6-10 /HPF* Estimated Creatinine Clearance: 91.4 mL/min (based on SCr of 0.72 mg/dL). Medications: Current Facility-Administered Medications Medication Dose Route Frequency acetaminophen 325-650 mg tab(s) (TYLENOL) 325-650 mg ORAL/FEEDING TUBE q 6 H PRN baclofen 10 mg tab(s) 10 mg ORAL BID 9a/3p And baclofen 20 mg tab(s) 20 mg ORAL AT BEDTIME bisacodyl 10 mg suppository (DULCOLAX) 10 mg RECTAL DAILY PRN ondansetron (PF) 4 mg injection (ZOFRAN) 4 mg INTRAVENOUS q 6 H PRN heparin 5,000 Units injection 5,000 Units SUBCUTANEOUS q 12 H NaCl 0.9% iv flush bag 20 mL INTRAVENOUS PRN dextrose 40 % 15 g 15 g ORAL PRN Or glucagon 1 mg injection 1 mg INTRAMUSCULAR PRN Or dextrose 10% iv bolus 12.5 g INTRAVENOUS PRN posaconazole DR 300 mg tab(s) (NOXAFIL) 300 mg ORAL DAILY insulin aspart human 300 Units per 3mL vial for insulin pump (SELF ADMINISTERED) SUBCUTANEOUS CONTINUOUS oxyCODONE IR 5-10 mg tab(s) (ROXICODONE) 5-10 mg ORAL q 6 H PRN morphine 2 mg injecti (more content not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 Analgesic Plan Postoperative analgesic plan: multimodal analgesia. Informed Consent Anesthetic risks, benefits, alternatives, personnel and consent discussed: yes. Patient / Responsible Alliance Party agrees to proceed: yes Patient / Surrogate agrees to blood products: yes Significant changes in the patient condition since the History and Physical, not otherwise documented in primary service progress note: no. Potential Anesthesia issues that may suggest increased risk of complications or contraindication to planned procedure: none. Vitals Value Taken Time BP 132/97 08/23/24 1252 Pulse 97 08/23/24 1129 Resp 16 08/23/24 1252 Temp 37.6 ?C (99.7 ?F) 08/23/24 1252 SpO2 98 % 08/23/24 1252 Facility-Administered Medications as of 08/23/2024 Medication Dose Route Frequency - [COMPLETED] lactated ringers 500 mL iv bolus 500 mL INTRAVENOUS ONCE - [Transfer Hold] acetaminophen 325-650 mg tab(s) (TYLENOL) 325-650 mg ORAL/FEEDING TUBE q 6 H PRN - [Transfer Hold] aspirin, enteric coated 81 mg tab(s) 81 mg ORAL DAILY - [Transfer Hold] baclofen 10 mg tab(s) 10 mg ORAL BID 9a/3p And - [Transfer Hold] baclofen 20 mg tab(s) 20 mg ORAL AT BEDTIME - [Transfer Hold] bisacodyl 10 mg suppository (DULCOLAX) 10 mg RECTAL DAILY PRN - [Transfer Hold] metoprolol succinate ER 100 mg tab(s) (TOPROL XL) 100 mg ORAL q 12 H 6a/6p - [Transfer Hold] ondansetron (PF) 4 mg injection (ZOFRAN) 4 mg INTRAVENOUS q 6 H PRN - [Transfer Hold] heparin 5,000 Units injection 5,000 Units SUBCUTANEOUS q 12 H - [Transfer Hold] NaCl 0.9% iv flush bag 20 mL INTRAVENOUS PRN - [Transfer Hold] dextrose 40 % 15 g 15 g ORAL PRN Or - [Transfer Hold] glucagon 1 mg injection 1 mg INTRAMUSCULAR PRN Or - [Transfer Hold] dextrose 10% iv bolus 12.5 g INTRAVENOUS PRN - [Transfer Hold] posaconazole DR 300 mg tab(s) (NOXAFIL) 300 mg ORAL DAILY - [Transfer Hold] insulin aspart human 300 Units per 3mL vial for insulin pump (SELF ADMINISTERED) SUBCUTANEOUS CONTINUOUS - [Transfer Hold] oxyCODONE IR 5-10 mg tab(s) (ROXICODONE) 5-10 mg ORAL q 6 H PRN - [Transfer Hold] morphine 2 mg injection 2 mg INTRAVENOUS q 4 H PRN Outpatient Medications as of 08/23/2024 Medication Sig - baclofen 10 mg tablet Take 1 tablet by mouth two times a day AND 2 tablets daily at bedtime. - potassium chloride SR (MICRO-K) 10 mEq CR capsule Take 1 capsule by mouth every afternoon. - bumetanide (BUMEX) 1 mg tablet Take 1 tablet by mouth every 12 hours. - oxyCODONE ir (OXYIR) 5 mg capsule Take 5 mg by mouth every 4 hours as needed for pain. - cyanocobalamin (VITAMIN B-12) 1,000 mcg tab Take 1,000 mcg by mouth. - glucagon 3 mg/actuation nasal spray (BAQSIMI) - ondansetron orally disintegrating (ZOFRAN ODT) 4 mg disintegrating tablet Take 4 mg by mouth every 6 hours as needed. - DULCOLAX, BISACODYL, RECTAL by RECTAL route once daily as needed. - lisinopril (ZESTRIL) 40 mg tablet Take 40 mg by mouth once daily. - acetaminophen (TYLENOL) 650 mg suppository 650 mg by RECTAL route every 4 hours as needed for pain or fever (specify temp.). - dextrose 40 % gel Take 15 g by mouth as needed. - insulin aspart U-100 (NOVOLOG) 100 unit/mL Use (more content not included)... [facility]Jos[facility] Metab 1999 Pnl SerPlon 54-78-3245Dketzht [Mass/Vol] 9.0 mg/dLNormal8.5-10.2FLancaster Municipal HospitalComment on above:Order Comment: Specimen Type: BLOOD SPECIMEN Ordering Facility: [facility] Address: [address], [place] [address]Performed By: #### 01882-9 #### [facility] CLIA [id number] [place] [address] [place] AMERICAChloride [Moles/Vol]114 mmol/LHigh 98-107T[facility] City HospitalComment on above:Order Comment: Specimen Type: BLOOD SPECIMEN Ordering Facility: [facility] Address: [address] [place], [place] [address]Ldoflyhba By: #### 52735-1 #### [facility] CLIA [id number] [address] [place] [address] [place] AMERICACO2 [Moles/Vol]17 mmol/NMou90-62 [facility] HospitalComment on above:Order Comment: Specimen Type: BLOOD SPECIMEN Ordering Facility: [facility] Address: [address] [place], [place] [address]Performed By: #### 75466-1 #### [facility] CLIA [id number] [place] [address] [place] AMERICACreatinine [Mass/Vol]0.65 mg/dL Normal0.58-0.96[facility] City HospitalComment on above:Order Comment: Specimen Type: BLOOD SPECIMEN Ordering Facility: [facility] Address: [address] [place], [place] [address]Performed By: #### 38218-6 #### [facility] CLIA [id number] [address] [place] [address] [place] AMERICAGlucose [Mass/Vol]147 mg/hNNibz37-28 [facility] HospitalComment on above:The [place] Diabetes Association (ADA) provides guidance for cutoff [...] hyperglycemia or hyperglycemic crisis, random plasma glucose resultsgreater than or equal to 200 mg/dL meet the criteria for diagnosis of diabetes.Reference: Standardsof Medical Care in Diabetes 2016, [place] Diabetes Association. Diabetes Care. 2016.39(Suppl 1). Order Comment: Specimen Type: BLOOD SPECIMEN Ordering Facility: [facility] Address: [address] [place], [place] [address]Result Comment: The [place] Diabetes Association (ADA) provides guidance for cutoff [...] Standards of Medical Care in Diabetes 2016, [place] Diabetes Association. Diabetes Care. 2016.39(Suppl 1).Performed By: #### 42420-6 #### [facility] CLIA [id number] [address] [place] [address] [place] AMERICAPotassium [Moles/Vol]4.9 mmol/L Normal3.7-5.1FLancaster Municipal HospitalComment on above:Order Comment: Specimen Type: BLOOD SPECIMEN Ordering Facility: [facility] Address: [address] [place], [place] [address]Performed By: #### 67659-3 #### [facility] CLIA [id number] [address] [place] [address] [place] AMERICASodium [Moles/Vol]141 mmol/LNormal 136-144T[facility] City HospitalComment on above:Order Comment: Specimen Type: BLOOD SPECIMEN Ordering Facility: [facility] Address: [address] [place], [place] [address]Performed By: #### 01191-3 #### [facility] CLIA [id number] [address] [place] [address] [place] AMERICAUrea nitrogen [Mass/Vol]44 mg/dLHigh 7-21[facility] HospitalComment on above:Order Comment: Specimen Type: BLOOD SPECIMEN Ordering Facility: [facility] Address: [address] [place], [place] [address]Performed By: #### 99086-3 #### [facility] CLIA [id number] [address] [place] [address] [place] AMERICABasic metabolic 2000 panelon 24-98-3228Xhynrqkgwj and Glomerular filtration rate.predicted panel (S/P/Bld)102 mL/min/1.73m???Normal>=60[facility] HospitalComment on above:Order Comment: Specimen Type: BLOOD SPECIMEN Ordering Facility: [facility] Address: [address] [place], [place] [address]Result Comment: Estimated Glomerular Filtration Rate (eGFR) is calculated using the 2020 CKD-EPI cre atinine equation. This equation utilizes serum creatinine, sex, and age as parameters. The creatinine assay has traceable calibration to isotope dilution- mass spectrometry. Refer to KDIGO guidelines for clinical interpretation. In patients with unstable renal function, e.g. those with acute kidney injury, the eGFR may not accurately reflect actual GFR.Performed By: #### 81475-9 #### [facility] CLIA [id number] [place] [address] panel Auto (Bld)on [id number] (Bld) [#/Vol]6.15 10*3/uLNormal3.70-11.00Centerpoint HospitalComment on above: Order Comment: Specimen Type: BLOOD SPECIMEN Ordering Facility: [facility] Address: [address] [place], [place] [address]Performed By: #### 30366-4 #### [facility] CLIA [id number] [address] [place], [place] [address] PROGon [id number] PRONO ID: [id number] Author: VERONICA RODRIGUEZ MD Service: Infectious Disease Author Type: Physician Type: Consult Progress Note Filed: 08/27/2024 02:06 Note Text: INFECTIOUS DISEASE CONSULT PROGRESS NOTES PATIENT NAME: Chikis Tobar SERVICE DATE: 08/23/2024 Assessment/Plan fungal meningitis with leptomeningeal enhancement-- --since 06/2022 last MRI 10/18/23 showed no change in the 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 There is still persistent abnormal intrameduallary cord signal immediately above and below displaced cord, down to T7 but this is chronic for many months and unchanged. Similarly she has leptomeningeal enhancement and some intradural enhancement throughout the C-T and upper lumbar spine, but this also is now chronic and unchanged on recent MRI. CRP 0.5 on 11/01/23 continue posaconazole crp fungitel plan for MRI with and without contrast for brain and cervical spine during this admission. h/o hydrocephalus. The patient [facility], in [facility].. FALL at home--> femur fracture-- 08/23--s/p OR--Daryl Morejon MD - Primary Preop Diagnosis: left supracondylar distal femur fracture S/P -- left femur intramedullary nail, periop receiving cefazolin left heel wound, appears to be pressure injury --POA culture --p wound care dm-1 Malignant neoplasm of urinary bladder. d/w pt and n staff interval hpi---- S/P OR with ortho periop receiving cefazolin rt heel chronic- follow cultures continue posaconazole crp fungitel plan for MRI with and without contrast for brain and cervical spine during this admission. MEDICATIONS: Current Facility-Administered Medications Medication Dose Route Frequency acetaminophen 325-650 mg tab(s) (TYLENOL) 325-650 mg ORAL/FEEDING TUBE q 6 H PRN aspirin, enteric coated 81 mg tab(s) 81 mg ORAL DAILY baclofen 10 mg tab(s) 10 mg ORAL BID 9a/3p And baclofen 20 mg tab(s) 20 mg ORAL AT BEDTIME bisacodyl 10 mg suppository (DULCOLAX) 10 mg RECTAL DAILY PRN metoprolol succinate ER 100 mg tab(s) (TOPROL XL) 100 mg ORAL q 12 H 6a/6p ondansetron (PF) 4 mg injection (ZOFRAN) 4 mg INTRAVENOUS q 6 H PRN heparin 5,000 Units injection 5,000 Units SUBCUTANEOUS q 12 H NaCl 0.9% iv flush bag 20 mL INTRAVENOUS PRN dextrose 40 % 15 g 15 g ORAL PRN Or glucagon 1 mg injection 1 mg INTRAMUSCULAR PRN Or dextrose 10% iv bolus 12.5 g INTRAVENOUS PRN posaconazole DR 300 mg tab(s) (NOXAFIL) 300 mg ORAL DAILY insulin aspart human 300 Units per 3mL vial for insulin pump (SELF ADMINISTERED) SUBCUTANEOUS CONTINUOUS oxyCODONE IR 5-10 mg tab(s) (ROXICODONE) 5-10 mg ORAL q 6 H PRN morphine 2 mg injection 2 mg INTRAVENOUS q 4 H PRN lactated ringers 500 mL iv bolus 500 mL INTRAVENOUS ONCE OBJECTIVE PHYSICAL EXAM: BP 142/49 Pulse 103 Temp (Src) 97.7 (Oral) Resp 18 Ht 5' 6 (1.68m) Wt 178 lb 12.7 oz (81.1kg) SpO2 100% BMI 28.87 kg/(m2). O2 Therapy: Room Air Skin: There is no evident rash. Neck: Supple. Oropharynx clear. No evidence of thrush. No cervical lymphadenopathy. Chest: Decreased air entry, bilateral bases. Few rales heard. Cardiovascular: S1, S2 normal. No murmur, no gallop heard. Abdomen: Soft, nontender. Bowel sounds present. Extremities: The patient has weakness in the lower extremities, not able to lift the legs off the bed. She has a heel wound on the left leg stage 3, irregular margins. Minimal drainage. The patient has a left leg in splint. Pulses are palpable bilateral radial and bilateral femoral. Diagnostic tests reviewed for today's visit: Most recent labs and compared Most recent micro/ EKG Most recent imaging and compared Recent Labs 08/23/24 0438 08/22/24 2342 WBC 6.15 6.71 HB 9.6* 10.7* HCT 30.0* 33.2* PLT 271 297 INR -- <0.9* APTT -- 29.1 NA 141 143 K 4.9 4.7 CHLOR 114* 116* CO2 17* 16* BUN 44* 51* CREAT 0.65 0.67 GLUC 147* 133* CA 9.0 9.2 MG -- 2.5* P -- 3.2 CRP 4.1 08/22/2024 Veronica Rodriguez MD 08/23/2024 9:01 [facility] ID: [id number] Author: JULIAN FIELDS MD Service: Orthopaedic Surgery Author Type: Resident Type: Consult Progress Note Filed: 08/23/2024 09:25 Note Text: Inpatient Progress Note Orthopaedic Surgery Assessment 59 year old female with complex history including L tibia shaft fracture (s/p IMN 10/07 Dr. 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 She will go to the OR for closed versus open reduction and intramedullary nail of the left femur with Dr. Morejon Plan - Weightbearing: Nonweightbearing left lower extremity - Remain n.p.o. until after OR today - Hold anticoagulation - Cleared and posted for OR today Plan of care discussed with: Provider, RN, Patient. Rounding Subjective No o/n issues Pain well controlled. Denies nausea, vomiting, chest pain, shortness of breath. Objective Blood pressure 115/53, pulse 95, temperature 37 ?C (98.6 ?F), temperature source Oral, resp. rate 12, height 167.6 cm (5' 6 ), weight 81.1 kg (178 lb 12.7 oz), SpO2 96%. Physical Exam AAOx3, NAD Breathing comfortably at rest RRR to peripheral palpation Left lower Extremity Inspection: Swelling about the left proximal knee. No obvious major deformity. No open wounds. Palpation: TTP to distal femur Compartments: Soft, compressible Sensory: SILT to SP/DP/T/S/S distributions Motor: Fires dorsiflexion, plantarflexion, EHL Vascular: DP 2+ to palp; CR < 2 sec; foot warm AND well-perfused Lab Review Creatinine (mg/dL) Date Value 08/23/2024 0.65 08/22/2024 0.67 07/02/2024 0.76 05/25/2021 1.01 (H) 04/23/2021 0.88 04/22/2021 1.00 (H) Creatinine (POCT) (mg/dL) Date Value 04/25/2022 0.50 (A) Sodium (mmol/L) Date Value 08/23/2024 141 08/22/2024 143 07/02/2024 142 05/25/2021 133 (L) 04/23/2021 136 04/22/2021 138 Potassium (mmol/L) Date Value 08/23/2024 4.9 08/22/2024 4.7 07/02/2024 4.6 05/25/2021 4.0 04/23/2021 4.2 04/22/2021 4.2 Hemoglobin (g/dL) Date Value 08/23/2024 9.6 (L) 08/22/2024 10.7 (L) 07/02/2024 13.0 05/25/2021 10.6 (L) 04/23/2021 10.2 (L) 04/22/2021 10.1 (L) Hematocrit (%) Date Value 08/23/2024 30.0 (L) 08/22/2024 33.2 (L) 07/02/2024 40.5 05/25/2021 31.6 (L) 04/23/2021 32.6 (L) 04/22/2021 32.4 (L) WBC (k/uL) Date Value 08/23/2024 6.15 08/22/2024 6.71 07/02/2024 6.91 05/25/2021 12.30 (H) 04/23/2021 7.61 04/22/2021 8.11 PT INR (no units) Date Value 03/30/2021 0.9 02/09/2021 0.9 INR (no units) Date Value 08/22/2024 <0.9 (L) 10/11/2023 <0.9 (L) 10/07/2023 <0.9 (L) Glucose, Point of Care (mg/dL) Date Value 08/23/2024 130 (A) 08/23/2024 158 (A) 08/23/2024 120 (A) 08/23/2024 99 02/07/2024 110 (A) 10/20/2023 76 Please scroll above for Assessment AND Plan. Plan of care discussed with: Provider, RN, Patient. Julian Fields MD [facility] PGY-4 , Pager [phone] If after 5pm or before 6am, or if urgent, please page the orthopaedic on-call resident at: [phone] for [facility] patients [id number] for [facility] patients [address] [facility] patients [phone] for [facility] patientsNormalSaint Joseph'S HospitalCT KNEE WO IVCON LT on [id number] KNEE WO IVCON LT* * *Final Report* * * DATE OF EXAM: Aug 23 2024 8:05AM [facility]VC 0083 - CT KNEE WO IVCON LT / PROCEDURE REASON: Fracture, knee * * * * Physician Interpretation * * * * EXAMINATION / TECHNIQUE: CT KNEE WO IVCON LT CLINICAL HISTORY: Fracture, evaluate for intra-articular extension Technique: CT left knee without contrast. CT Radiation dose: Integrated Dose-length product (DLP) for this visit = 356 mGy*cm CT Dose Reduction Employed: Automated exposure control (AEC) Comparison: Earlier same day x-rays RESULT: An oblique fracture is noted at the distal femoral metadiaphysis with approximately 7 mm posterior displacement of the distal fragment. There is intra-articular involvement at the level of the patellofemoral articulation. No medial or lateral compartment intra-articular involvement. There is a hairline fracture extending superiorly along the medial cortex of the distal femur (4:38). Moderate-sized lipohemarthrosis is noted. No other fracture is noted. Partial visualization of fixation hardware at the proximal tibia. Medial compartment narrowing and tricompartmental osteophytes. Vascular calcifications. IMPRESSION: 1. Mildly displaced distal femoral fracture with patellofemoral intra-articular involvement and moderate sized lipohemarthrosis. 2. Left knee degenerative changes. Laundry Aid: SUMA Transcribe Date/Time: Aug 23 2024 8:49A Dictated by : DIAMOND HICKMAN MD This examination was interpreted and the report reviewed and electronically signed by: DIAMOND HICKMAN MD on Aug 23 2024 8:56AM EST [id number] Hospital COMPLETEon [id number] COMPLETEVentricular Rate : 109 BPM Atrial Rate : 109 BPM P-R Interval : 172 ms QRS Duration : 79 ms Q-T Interval : 335 ms QTC Calculation(Bazett) : 452 ms Calculated P [place] : 58 degrees Calculated R [place] : 18 degrees Calculated T [place] : 22 degrees Sinus tachycardia Otherwise Normal ECG Confirmed by NELLIE AMOS MD ([id number]) on 09/04/2024 4:11:58 PM NAME : CHIKIS TOBAR PID : [id number] : 1965 Gender : Female Race : ORD : [id number] Procedure Date : Aug 23 2024 03:50:10 Edit Date : Sep 04 2024 16:12:04 Diagnosis: Sinus tachycardia Otherwise Normal ECG Confirmed by NELLIE AMOS MD ([id number]) on 09/04/2024 4:11:58 PM Test Reason : Arrhythmia Location : 400 : FVEKG 324 Overread By : NELLIE AMOS MD Edited By : NELLIE AMOS MD Referred By : JUANAMAURILIO Acquired by : [id number] HospitalErythrocyte distribution width [Ratio] by Automated counton 10-25-9421Upcosffvzqw distribution width (RBC) [Ratio]15.4 %High11.5-15.0[facility] City HospitalComment on above: Order Comment: Specimen Type: BLOOD SPECIMEN Ordering Facility: [facility] Address: [address] [place], [place] [address]Performed By: #### 60968-9 #### [facility] CLIA [id number] [address] [place] [address] [place] AMERICAErythrocytes [#/volume] in Blood by Automated counton 60-00-2508CJA (Bld) [#/Vol]3.32 10*6/uLLow3.90-5.20[facility] City HospitalComment on above:Order Comment: Specimen Type: BLOOD SPECIMEN Ordering Facility: [facility] Address: [address] [place], [place] [address]Performed By: #### 93796-8 #### [facility] CLIA [id number] [address] [place] [address] [place] AMERICAHematocrit [Volume Fraction] of Blood by Automated counton 98-02-8278Wypejvqkpw (Bld) [Volume fraction]30.0 %Low 36.0-46.0T[facility] City HospitalComment on above:Order Comment: Specimen Type: BLOOD SPECIMEN Ordering Facility: [facility] Address: [address] [place], [place] [address]Performed By: #### 14730-3 #### [facility] CLIA [id number] [address] [place] [address] [place] AMERICAHemoglobin [Mass/volume] in Bloodon 32-31-5931Aubaqhdvsu (Bld) [Mass/Vol]9.6 g/dLLow11.5-15.5FLancaster Municipal HospitalComment on above:Order Comment: Specimen Type: BLOOD SPECIMEN Ordering Facility: [facility] Address: [address] [place] [id number] By: #### 81857-6 #### [facility] CLIA [id number] [address] [place] [address] STATES OF [facility] LIMALaboratory - Chemistry and Chemistry - challengeon 83-25-1431Rybuhfqrc Ql (U)NegativeNegativeTwin City HospitalGlucose (U) [Mass/Vol]NegativeTrace, NegativeTwin City HospitalKetones Ql (U)NegativeNegative, TraceTwin City HospitalpH (U)8.0 [pH]5.0-8.0Peoples Hospitalpecific gravity (U) [Rel density]1.0141.005-1.030T[facility] City HospitalLaboratory - Specimen informationon 28-18-2395Hptnnfbsrc (U)TurbidAbnormalClearFLancaster Municipal HospitalColor (U)Light YellowYellowTwin City HospitalLaboratory - Urinalysison 03-42-4553Lmqcknvfr esterase Test strip Ql (U)75 Giorgio/uLAbnormalNegative, 25 Giorgio/uLTwin City HospitalNitrite Ql (U) 2+AbnormalNegativeTwin City HospitalProtein Ql (U)NegativeTrace, NegativeTwin City HospitalLeukocytes [#/volume] corrected for nucleated erythrocytes in Blood by Automated counon 47-54-5666KYB corrected for nucl RBC Auto (Bld) [#/Vol]6.15 k/uL3.70-11.00[facility] MCH [Entitic mass] by Automated counton 57-77-7423RTY (RBC) [Entitic mass]28.9 gkLidwob82.0-34.0T[facility] HospitalComment on above:Order Comment: Specimen Type: BLOOD SPECIMEN Ordering Facility: [facility] Address: [address] [place], [place] [address]Performed By: #### 25209-9 #### [facility] CLIA [id number] [address] [place] [address] [place] AMERICAMCHC [Mass/volume] by Automated counton 85-95-4530RIVU (RBC) [Mass/Vol]32.0 g/aKWeskul84.5-36.0T[facility] HospitalComment on above:Order Comment: Specimen Type: BLOOD SPECIMEN Ordering Facility: [facility] Address: [address] [place], [place] [address]Performed By: #### 02945-1 #### [facility] CLIA [id number] [address] [place] [id number] [place] [facility] LIMAMCV [Entitic volume] by Automated counton 86-56-8015AMJ (RBC) [Entitic vol]90.4 lHCmslcy39.0-100.0T[facility] City HospitalComment on above:Order Comment: Specimen Type: BLOOD SPECIMEN Ordering Facility: [facility] Address: [address] [place], [place] [address]Performed By: #### 81231-1 #### [facility] CLIA [id number] [place] [address] Panel Informationon - Hydroxy Vitamin D Total20.4 ng/mLLow31.0-80.0[facility] Comment on above:Classification of 25 [place] Vitamin D status: Deficiency/Insufficiency: < or = 30 ng/ml.Sufficiency/Optimal Levels: 31-80 ng/mLToxicity: > 100 ng/mL. Test performed by chemiluminescent immunoassay. Estimated GFR (CKD-EPI)102 mL/min/1.73m???>=60[facility] Comment on above:Estimated Glomerular Filtration Rate (eGFR) is calculated using the 2020 CKD-EPI creatinine equation. This equation utilizes serum creatinine, sex, and age as parameters. The creatinine assay has traceable calibration to isotope dilution-mass spectrometry. Refer to KDIGO guidelines for clinical inte rpretation. In patients with unstable renal function, e.g. those with acute kidney injury, the eGFRmay not accurately reflect actual GFR.Posaconazole Level <0.2 ug/mLLow0.7-3.9T[facility] HospitalComment on above:Ranges are based on trough draw at steady-state concentration.Therapeutic: >0.9 ug/mLProphylactic: >0.6 ug/mLToxic: >3.9 ug/mLThe therapeutic, prophylactic, and toxic ranges were based on the 2016 Infectious Disease Society of [place]'s (IDSA) Clinical Practice Guidelines for the Management of Aspergillosis and Candidiasis and consultation from [facility]'s Department of Infectious Disease.Reference ranges and high/low indicator flags are provided as general guidelines only. The treating physician must determine appropriate target levels/dosing based on the specific clinical situation.This test was developed, and its performance characteristics determined by the [facility] Department of Pathology and Laboratory Medicine. It has not been cleared or approved by the FDA.The [facility] Department of Pathology and Laboratory Medicine is regulated under CLIA as qualified to perform high-complexity testing. This test is used for clinical purposes. It should not beregarded as investigational or for research.Staphylococcus aureus (PCR)(LAB)Not detectedNot DetectedTwin City HospitalUrine Occult BloodNegativeNegative, TraceTwin City HospitalUrine RBC0-3 /HPF0-3 /HPFTwin City HospitalUrine Triple Phosphate CrystalsFew [HPF]AbnormalNone Seen [facility] City HospitalUrine UrobilinogenNormalNormalTwin City HospitalUrine WBC6-10 /HPFAbnormal0-5 /HPFTwin City HospitalNucleated erythrocytes [#/volume] in Blood by Automated counton 16-44-0717Dibdjzeur RBC (Bld) [#/Vol]10*3/uLNormal<0.01T[facility] HospitalComment on above:Order Comment: Specimen Type: BLOOD SPECIMEN [facility]: [facility] [facility] Address: [address] [place], [place] [address]Performed By: #### 35940-5 #### [facility] [id number] [address] [place] [address] STATES OF AMERICAOPERATIVE NOon 04-01-1794CWLOBSDFA NOHNO ID: [id number] Author: DARYL MOREJON MD Service: Orthopaedic Surgery Author Type: Physician Type: Operative Report Filed: 08/23/2024 15:19 Note Text: Orthopaedic Surgery Operative Report Patient Name: Chikis Tobar Surgery Date: August 23, 2024 LOG ID: [id number] Surgeon(s) and Coordinate Measuring Machine Programmer(s): Surgeons and Role: * Daryl Morejon MD - Primary * Julian Fields MD - Resident - Assisting No Additional Staff I was present for all critical portions of the case and immediately available for the entirety of the case. Surgical Staff: Paste Worker: Sherry Fritz RN Livestock Exhibitor: Khoi Charles RT(R) Scrub Person: Karina Rivera ST; Lidya Shelton ST Preop Diagnosis: left supracondylar distal femur fracture Postop Diagnosis: Same as preop diagnosis Procedure(s): 1) left femur intramedullary nail, CPT 53113 Anesthesia: General Estimated Blood Loss: 100ml Incision Start: 1:51 PM Incision Stop: 3:04 PM Operative Indication: Pt is a 59 year old female who fell and injured the Left distal femur. The patient was seen in emergency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 U/KIwz56-77EatualbbbTwin City HospitalBilirubin [Mass/Vol]0.2 mg/dL0.2-1.0[facility] GFR/1.73 sq M.predicted MDRD (S/P/Bld) [Vol rate/Area]55 mL/min/{1.73_m2}Low>=60 mL/min/1.73m 2FLancaster Municipal HospitalProtein [Mass/Vol]6.9 g/dL6.4-8.2 [facility] HospitalUrea nitrogen/Creatinine [Mass ratio]86.8 mg/mg [facility] HospitalLaboratory - Hematology and Cell countson 86-81-0045Oagnsaxj granulocytes/100 WBC (Bld)0.9 %High0.0-0.5FLancaster Municipal HospitalLeukocytes [#/volume] corrected for nucleated erythrocytes in Blood by Automated counon 92-29-4462VTH corrected for nucl RBC Auto (Bld) [#/Vol]6.71 k/uL3.70-11.00T[facility] City HospitalLymphocytes Auto (Bld) [#/Vol]on 72-74-1150Zppribbqomf (Bld) [#/Vol]1.1 10 3/uLLow1.2-3.8 [facility] HospitalLymphocytes/100 WBC Auto (Bld)on 08-22-2024 Lymphocytes/100 WBC (Bld)12.7 %Low20.5-60.0[facility] HospitalMCH [Entitic mass] by Automated counton 25-29-1122ZBB (RBC) [Entitic mass]29.6 pg Lpzdta62.0-34.0[facility] City HospitalComment on above:Order Comment: Specimen Type: BLOOD SPECIMEN Ordering Facility: [facility] Address: [address] [place], [place] [address]Performed By: #### 15684-7 #### [facility] CLIA [id number] [address] [place] [address] [place] AMERICAMCHC [Mass/volume] by Automated counton 92-67-6731THFK (RBC) [Mass/Vol]32.2 g/qBGvjarr62.5-36.0[facility] City HospitalComment on above:Order Comment: Specimen Type: BLOOD SPECIMEN Ordering Facility: [facility] Address: [address] [place], [place] [address]Performed By: #### 29204-6 #### [facility] CLIA [id number] [address] [place] [address] [place] AMERICAMCV [Entitic volume] by Automated counton 00-83-9027EAR (RBC) [Entitic vol]92.0 tBQojrwa49.0-100.0T[facility] City HospitalComment on above:Order Comment: Specimen Type: BLOOD SPECIMEN Ordering Facility: [facility] Address: [address] [place], [place] [address]Performed By: #### 50125-7 #### [facility] CLIA [id number] [address] [place] [address] [place] AMERICAMagnesium SerPl-mCncon 08-22-2024 Magnesium [Mass/Vol]2.5 mg/dLHigh1.7-2.3FLancaster Municipal HospitalComment on above:Order Comment: Specimen Type: BLOOD SPECIMEN Ordering Facility: [facility] Address: [address] [place], [place] [address]Performed By: #### 53756-0 #### [facility] CLIA [id number] [address] [place] [address] [place] AMERICAMonocytes Auto (Bld) [#/Vol]on 89-17-2703Dzxjoutzz (Bld) [#/Vol]0.6 10 3/uL0.3-0.8T[facility] City HospitalMonocytes/100 WBC Auto (Bld)on 10-69-7044Otgjkvkoh/100 WBC (Bld)7.5 % 1.7-12.0[facility] HospitalNURSING PROGon 78-06-1989SSBJURJ PROG HNO ID: [id number] Author: MASTER FONTANA, RN Service: Nursing Author Type: Registered Nurse Type: Nursing Progress Note Filed: 08/22/2024 22:41 Note Text: Transfer Note: PATIENT NAME: Chikis Tobar Patient Location: [place] [address]/TN3X-05 Room: [place] [address] 2230: Patient transferred into room/[place] [address] in stable condition.Normal [facility] HospitalNeutrophils Auto (Bld) [#/Vol]on 09-31-1998Fxlwkrfqdld (Bld) [#/Vol]6.6 10 3/uLHigh1.4-6.5FLancaster Municipal HospitalNeutrophils/100 WBC Auto (Bld)on 74-61-4612Zdnxfeepwee/100 WBC (Bld)77.1 %High43.0-75.0[facility] HospitalNo Panel Informationon 90-49-8182H-Reactive Protein, Quantitative4.1 mg/dLHigh<0.9[facility] HospitalEstimated GFR (CKD-EPI)101 mL/min/1.73m???>=60T[facility] City HospitalComment on above:Estimated Glomerular Filtration Rate (eGFR) is calculated using the 2020 CKD-EPI creatinine equation. This equation utilizes serum creatinine, sex, and age as parameters. The creatinine assay has traceable calibration to isotope dilution-mass spectrometry. Refer to KDIGO guidelines for clinical inte rpretation. In patients with unstable renal function, e.g. those with acute kidney injury, the eGFRmay not accurately reflect actual GFR.Phosphorus Level3.2 mg/dL2.7-4.8[facility] HospitalEosinophils # (Auto)0.1 10 3/uL 0.0-0.7FLancaster Municipal HospitalImmature Granulocyte # (Auto)0.08 10 3/uLHigh0.00-0.03[facility] HospitalNucleated erythrocytes [#/volume] in Blood by Automated counton 42-83-7990Jrcawzwzq RBC (Bld) [#/Vol] 10*3/uLNormal<0.01[facility] HospitalComment on above:Order Comment: Specimen Type: BLOOD SPECIMEN Ordering Facility: [facility] Address: [address] [place], [place] [address]Xmxkhkdbb By: #### 84735-3 #### [facility] [id number] [address] [place] [address] [place] AMERICAPhosphate SerPl-mCncon 08-22-2024 Phosphate [Mass/Vol]3.2 mg/dLNormal2.7-4.8Saint [facility]'S HospitalComment on above: Order Comment: Specimen Type: BLOOD SPECIMEN Ordering Facility: [facility] Address: [address] [place], [place] [address]Performed By: #### 36081-2 #### [facility] [place] [id number] [address] [place] [id number] [place] AMERICAPlatelet mean volume [Entitic volume] in Blood by Automated counton 77-49-2997Aksxsswv mean volume (Bld) [Entitic vol]9.7 fLNormal9.0-12.7FLancaster Municipal HospitalComment on above:Order Comment: Specimen Type: BLOOD SPECIMEN Ordering Facility: [facility] Address: [address] [place], [place] [address]Performed By: #### 89111-8 #### [facility] [place] [id number] [address] [place] [address] [place] AMERICAPlatelets [#/volume] in Blood by Automated counton 56-19-6900Eoqbjmjld (Bld) [#/Vol]297 10*3/nFZfjbxl272-400 [facility] HospitalComment on above:Order Comment: Specimen Type: BLOOD SPECIMEN Ordering Facility: [facility] Address: [address] [place], [place] [address]Performed By: #### 34835-6 #### [facility] [place] [id number] [address] [place], [place] [id number] [place] OF AMERICAProthrombin time (PT)on 67-40-8962CK Coag (PPP) [Time]10.3 sNormal9.7-13.0T[facility] City HospitalComment on above:Order Comment: Specimen Type: BLOOD SPECIMEN Ordering Facility: [facility] Address: [address] [place], [place] [address]Performed By: #### 19080-5 #### [facility] [place] [id number] [address] [place], [place] [address] [place] AMERICASerum or plasma albumin/globulin mass ratioon 82-42-1897Jyurdol/Globulin [Mass ratio]1.0 {ratio}Peoples Hospitalerum or plasma anion gap determinationon 24-52-7915Sgiwh gap [Moles/Vol]11 mmol/LNormal8-15[facility] HospitalComment on above:Order Comment: Specimen Type: BLOOD SPECIMEN Ordering Facility: [facility] Address: [address] [place], [place] [address]Performed By: #### 32796-7 #### [facility] CLIA [id number] STATES [facility] CENTERTYPE + SCREENon 32-76-3328TWSELhacat Centerpoint HospitalComment on above:Order Comment: Specimen Type: BLOOD SPECIMENOrdering Facility: [facility] Address:[address] [place], [place] [address]Performed By: #### TSCR ####[facility] BANKCLIA [id number] [place] [id number] [place] MARINE HOSPITALRh Nom (Bld)PositiveNormDanvers State Hospital HospitalComment on above:Order Comment: Specimen Type: BLOOD SPECIMENOrdering Facility: [facility] Address:[address] [place], [place] [address]Performed By: #### TSCR ####[facility] BLO[facility] BANKCLIA [id number] [place] [address] [place] OF AMERICATYPE AND SCREEN MSIDTADGJI44/12/2025 23:59NormalCenterpoint HospitalComment on above:Order Comment: Specimen Type: BLOOD SPECIMENOrdering Facility: [facility] Address:[address] [place] [address] Performed By: #### TSCR ####[facility] BLO[facility] BANKCLIA [id number] [place] [id number] [facility] OF AMERICACNPNon 62-02-9714AIERGkkuqkbpm (ENDOAV) CHIKIS TOBAR ([id number]) 1965 F Date Time Provider Department 08/21/24 RUDDY GUPTA ENDOAV During your visit today, we recorded the following information about you: Batsheva Wilson LPN 08/21/2024 11:58 AM Signed Fax received from [facility] requesting provider signature on a LMN for insulin pump and supplies. Form placed in Dr. Gupta's folder for review. Batsheva Wilson LPN 08/29/2024 10:15 AM Signed Completed and signed form faxed with confirmation. Glory Pedraza RN 09/02/2024 11:10 AM Signed Fax received from [facility]. Stating that change not initialed and dated and missing signature. Form placed in Dr Gupta's folder. Carolyn Hitchcock MA 09/03/2024 11:54 AM Signed Form completed by provider and faxed back. Allergies As of Date: 08/21/2024 Noted Allergy Reaction DEMERAL (MEPERIDINE) 02/09/2021 8 - GI Upset Comments: Nausea, pt states room spins FLEXERIL (CYCLOBENZAPRINE) 02/09/2021 4 - Hives ORPHENADRINE 09/30/2015 14 - Other: See Comments 4 - Hives 2 - Rash VERSED (MIDAZOLAM) 02/18/2021 1 - Mental Status Change Date Reviewed: 08/01/2024 Reviewed by: Cecily Lopes MA - Fully Assessed Reason for Visit: Patient Update [1234] Cmt: Jose Prescriptions as of 09/03/2024 - acetaminophen (TYLENOL) 325 mg tablet Take 2 tablets by mouth every 6 hours as needed for pain. - aspirin, enteric coated (ADULT LOW DOSE ASPIRIN) 81 mg EC tablet Take 1 tablet by mouth two times a day for 28 days, THEN 1 tablet two times a day. - metoprolol succinate ER (TOPROL XL) 100 mg Take 0.5 tablets by mouth two times a day. - posaconazole DR (NOXAFIL) 100 mg tablet Take 3 tablets by mouth once daily. - lisinopril (ZESTRIL) 5 mg tablet Take 1 tablet by mouth once daily. - baclofen 10 mg tablet Take 1 tablet by mouth two times a day AND 2 tablets daily at bedtime. - potassium chloride SR (MICRO-K) 10 mEq CR capsule Take 1 capsule by mouth every afternoon. - bumetanide (BUMEX) 1 mg tablet Take 1 tablet by mouth every 12 hours. - cyanocobalamin (VITAMIN B-12) 1,000 mcg tab Take 1,000 mcg by mouth. - glucagon 3 mg/actuation nasal spray (BAQSIMI) - ondansetron orally disintegrating (ZOFRAN ODT) 4 mg disintegrating tablet Take 4 mg by mouth every 6 hours as needed. - DULCOLAX, BISACODYL, RECTAL by RECTAL route once daily as needed. - dextrose 40 % gel Take 15 g by mouth as needed. - insulin aspart U-100 (NOVOLOG) 100 unit/mL Use via insulin pump Max daily dose 100 units, DX: E10.65 - senna-docusate (SENNA-S) 8.6-50 mg per tablet 1 tablet by ORAL/FEEDING TUBE route two times a day. - lactobacillus rhamnosus (CULTURELLE) 10 billion cell capsule (Discontinued) Take 1 capsule by mouth once daily. Problem List As Of Date 08/21/2024 Noted Resolved Neoplasm of bladder [D49.4] 02/16/2021 Asthma [J45.909] 02/16/2021 Essential hypertension [I10] 02/16/2021 Palpitations [R00.2] 02/16/2021 Obesity [E66.9] 02/16/2021 06/11/2022 Diabetes mellitus type I (HCC) [E10.9] Malignant neoplasm of urinary bladder (HCC) [C6*04/20/2021 Small bowel obstruction (HCC) [K56.609] 12/16/2021 12/21/2021 Severe protein-calorie malnutrition (HCC) [E43] 12/20/2021 Hypokalemia [E87.6] 12/21/2021 Hypophosphataemia [E83.39] 12/21/2021 Hyponatremia [E87.1] 01/05/2022 Hypomagnesemia [E83.42] 01/05/2022 Hydronephrosis [N13.30] 01/09/2022 Chronic low back pain without sciatica [M54.50,*03/13/2022 Lesion of lumbar spine [M89.9] 06/10/2022 Spinal cord mass (HCC) [G95.89] 06/15/2022 Unstageable pressure ulcer of sacral region (HC*06/16/2022 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] 09/05/2023 Tibia/fibula fracture, left, closed, initial en*10/07/2023 Dyslipidemia [E78.5] 10/07/2023 10/18/2023 Insulin pump status [Z96.41] 10/07/2023 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*10/07/2023 Fungal meningitis [G02] 10/07/2023 Gait abnormality [R26.9] 10/07/2023 Acute postoperative anemia due to expected bloo*10/09/2023 Hydrocephalus (HCC) [G91.9] 10/11/2023 Type 1 diabetes mellitus with hyperglycemia (HC*10/11/[address] [Z96.41] 10/11/2023 Recurrent falls [R29.6] 10/11/2023 Pressure injury of left heel, stage 1 [L89.621] 10/12/2023 10/12/2023 Deep tissue injury [T14.8XXA] 10/12/2023 Pressure injury of coccygeal region, stage 2 (H*10/12/2023 10/17/2023 Preop exam for internal medicine [Z01.818] 10/12/2023 10/18/2023 Pressure injury of deep tissue of left heel [L8*10/12/2023 Alteration in self-care ability [R68.89] 10/12/2023 Impaired mobility [Z74.09] 10/12/2023 Risk for falls [Z91.81] 10/12/2023 S/P exploratory laparotomy [Z98.890] 10/12/2023 Pressure injury of deep tissue of left foot [L8*10/17/2023 Long-term insulin use (HCC) [Z79.4] 10/22/2023 Elevated alkaline phosphatase level [R74.8] 02/06/2024 Type 1 diabetes mellitus with hypoglycaemia (H (more content not included)... 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 Chikis's shunt was previously removed at [facility] on 07/10/23 following surgery for bowel obstruction followed by worsening symptoms.shunt was reimplanted on 10/11/23 with multiple episodes of slit like ventricles and previous hygroma development with shunt set to 7. At last visit, Chikis continued to be limited by her stability and gait and requested her valve be adjusted back to 7. Following adjustment, she has seen improvement in mobility but developed intermittent headaches and nausea/vomiting. Focused Exam: Right frontal shunt site examined, [...] CN XII: Tongue protrusion full and midline Impression: Chikis Tobar is a pleasant 58 year old female with a history of communicating hydrocephalus. 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 Her shunt was re inserted on 10/11/23 with Certas valve. At last visit, Chikis continued to struggle with mobility and requested valve be adjusted back to 7. Since adjustment, she has noticed some improvement in activity but has developed new onset headaches and N/V. CT brain showed her ventricles have again decompressed at 7 without acute ischemia or hemorrhage. Discussed in detail possible benefits and risks of 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 adjustment. After discussion with Chikis, she would like to undergo shunt adjustment. Certas valve shunt was adjusted from 7 to 8. We discussed in detail the warning signs and symptoms of overdrainage as well as when to contact our office or present to the ED if concern is severe. Follow up in [address] brain Plan: Shunt information Shunt type: Certas Initial settin New settin Marlene Cordero PA-C Allergies As of Date: 08/01/2024 Noted Allergy Reaction DEMERAL (MEPERIDINE) 02/09/2021 8 - GI Upset Comments: Nausea, pt states room spins FLEXERIL (CYCLOBENZAPRINE) 02/09/2021 4 - Hives ORPHENADRINE 09/30/2015 14 - Other: See Comments 4 - Hives 2 - Rash VERSED (MIDAZOLAM) 02/18/2021 1 - Mental Status Change Date Reviewed: 08/01/2024 Reviewed by: Cecily Lopes MA - Fully Assessed Reason for Visit: Established Patient [175] Follow Up [171] Primary Visit Diagnosis:Other hydrocephalus (HCC) [G91.8] Order(s):CT BRAIN PABLO THOMPSON [[id number]] Order #: [id number] FUTURE Prescriptions as of 08/01/2024 - baclofen 10 mg tablet Take 10 mg by mouth three times a day. 90pl-68dw-45us - potassium chloride SR (MICRO-K) 10 mEq CR capsule Take 1 capsule by mouth every afternoon. - bumetanide (BUMEX) 1 mg tablet Take 1 tablet by mouth every 12 hours. - oxyCODONE ir (OXYIR) 5 mg capsule Take 5 mg by mouth every 4 hours as needed for pain. - cyanocobalamin (VITAMIN B-12) 1,000 mcg tab Take 1,000 mcg by mouth. - glucagon 3 mg/actuation nasal spray (BAQSIMI) - ondansetron orally disintegrating (ZOFRAN ODT) 4 mg disintegrating tablet Take 4 mg by mouth every 6 hours as needed. - DULCOLAX, BISACODYL, RECTAL by RECTAL route once daily as needed. - lisinopril (ZESTRIL) 40 mg tablet Take 40 mg by mouth once daily. - acetaminophen (TYLENOL) 650 mg suppository 650 mg by RECTAL route every 4 hours as needed for pain or fever (specify temp.). - dextrose 40 % gel Take 15 g by mouth as needed. - insulin aspart U-100 (NOVOLOG) 100 unit/mL Use via insulin pump Max daily dose 100 units, DX: E10.65 - acetaminophen (TYLENOL) 325 mg tablet 2 tablets by ORAL/FEEDING TUBE route every 6 hours as needed for pain. - aspirin, enteric coated (ADULT LOW DOSE ASPIRIN) 81 mg EC tablet Start ASA 81 mg BID on 10/24 Patient should start on October 25, 2023. - metoprolol succinate (more content not included)...NormalCleveland Clinic Children[facility] for [facility] BRAIN WO IVCONon 15-67-3908EV BRAIN WO IVCON* * *Final Report* * * DATE OF EXAM: Jul 31 2024 2:20PM [facility] 0504 - CT BRAIN WO IVCON / PROCEDURE REASON: Other hydrocephalus (HCC) * * * * Physician Interpretation * * * * RESULT: EXAMINATION: CT BRAIN WO IVCON CLINICAL HISTORY: Other hydrocephalus. TECHNIQUE: Serial axial images without IV contrast were obtained from the vertex to the foramen magnum. MQ: CTBWO_3 CT Radiation dose: Integrated Dose-Length Product (DLP) for this visit = 976 mGy*cm CT Dose Reduction Employed: Automated exposure control (AEC) COMPARISON: Prior head CT 07/01/2024. RESULT: Localizer images: No additional findings. Post-operative change: Right parietal approach ventricular shunt catheter terminates in the frontal horn of the right lateral ventricle. Acute change: No evidence of an acute infarct or other acute parenchymal process. Hemorrhage: No evidence of acute intracranial hemorrhage. ECASS hemorrhagic transformation score: Not Applicable Mass Lesion / Mass Effect: There is no evidence of an intracranial mass or extraaxial fluid collection. No mass effect. Chronic change: Prior low attenuation surrounding the ventriculostomy catheter is no longer clearly evident. This may in part be related to interval normalization of ventricular caliber. Multifocal patchy areas of hypoattenuation in the right greater than left cerebral hemispheric white matter likely sequelae minimal background chronic microvascular change and possibly small remote infarct in right posterior frontal white matter (2:22). Intracranial arterial calcifications are present. Parenchyma: There is no significant volume loss. Ventricles: Interval decompression of the ventricles. Paranasal sinuses and skull base: Polypoid mucosal thickening and/or inspissated fluid in the right sphenoid sinus. The skull base and imaged soft tissues are unremarkable. IMPRESSION: Interval decompression of the ventricles. No evidence for acute ischemia or hemorrhage. Transcribe Date/Time: Jul 31 2024 2:24P Dictated by: REX CASEY MD This examination was interpreted and the report reviewed and electronically signed by: REX CASEY MD on Jul 31 2024 2:32PM EST Thank you for allowing us to participate in the care of your patient. Should there be any questions regarding this interpretation, please call [phone]. If you are unable to reach us at the number above, please feel free to contact [facility] at [phone]. [id number] Clinic Children's Hospital for Rehabilitation Head WO contraston 97-26-9256EMUIPSXDXI: Interval decompression of the ventricles. No evidence for acute ischemia or hemorrhage. Transcribe Date/Time: Jul 31 2024 2:24P Dictated by: REX CASEY MD This examination was interpreted and the report reviewed and electronically signed by: REX CASEY MD on Jul 31 2024 2:32PM EST Thank you for allowing us to participate in the care of your patient. Should there be any questions regarding this interpretation, please call [phone]. If you are unable to reach us at the number above, please feel free to contact [facility] at [phone].DIVISION OF RADIOLOGY* * *Final Report* * * DATE OF EXAM: Jul 31 2024 2:20PM [facility] 0504 - CT BRAIN WO IVCON / PROCEDURE REASON: Other hydrocephalus (HCC) * * * * Physician Interpretation * * * * RESULT: EXAMINATION: CT BRAIN WO IVCON CLINICAL HISTORY: Other hydrocephalus. TECHNIQUE: Serial axial images without IV contrast were obtained from the vertex to the foramen magnum. MQ: CTBWO_3 CT Radiation dose: Integrated Dose-Length Product (DLP) for this visit = 976 mGy*cm CT Dose Reduction Employed: Automated exposure control (AEC) COMPARISON: Prior head CT 07/01/2024. RESULT: Localizer images: No additional findings. Post-operative change: Right parietal approach ventricular shunt catheter terminates in the frontal horn of the right lateral ventricle. Acute change: No evidence of an acute infarct or other acute parenchymal process. Hemorrhage: No evidence of acute intracranial hemorrhage. ECASS hemorrhagic transformation score: Not Applicable Mass Lesion / Mass Effect: There is no evidence of an intracranial mass or extraaxial fluid collection. No mass effect. Chronic change: Prior low attenuation surrounding the ventriculostomy catheter is no longer clearly evident. This may in part be related to interval normalization of ventricular caliber. Multifocal patchy areas of hypoattenuation in the right greater than left cerebral hemispheric white matter likely sequelae minimal background chronic microvascular change and possibly small remote infarct in right posterior frontal white matter (2:22). Intracranial arterial calcifications are present. Parenchyma: There is no significant volume loss. Ventricles: Interval decompression of the ventricles. Paranasal sinuses and skull base: Polypoid mucosal thickening and/or inspissated fluid in the right sphenoid sinus. The skull base and imaged soft tissues are unremarkable. DIVISION OF RADIOLOGYProvider, [facility] [place] - 07/31/2024 * * *Final Report* * * DATE OF EXAM: Jul 31 2024 2:20PM [facility] 0504 - CT BRAIN WO IVCON / PROCEDURE REASON: Other hydrocephalus (HCC) * * * * Physician Interpretation * * * * RESULT: EXAMINATION: CT BRAIN WO IVCON CLINICAL HISTORY: Other hydrocephalus. TECHNIQUE: Serial axial images without IV contrast were obtained from the vertex to the foramen magnum. MQ: CTBWO_3 CT Radiation dose: Integrated Dose-Length Product (DLP) for this visit = 976 mGy*cm CT Dose Reduction Employed: Automated exposure control (AEC) COMPARISON: Prior head CT 07/01/2024. RESULT: Localizer images: No additional findings. Post-operative change: Right parietal approach ventricular shunt catheter terminates in the frontal horn of the right lateral ventricle. Acute change: No evidence of an acute infarct or other acute parenchymal process. Hemorrhage: No evidence of acute intracranial hemorrhage. ECASS hemorrhagic transformation score: Not Applicable Mass Lesion / Mass Effect: There is no evidence of an intracranial mass or extraaxial fluid collection. No mass effect. Chronic change: Prior low attenuation surrounding the ventriculostomy catheter is no longer clearly evident. This may in part be related to interval normalization of ventricular caliber. Multifocal patchy areas of hypoattenuation in the right greater than left cerebral hemispheric white matter likely sequelae minimal background chronic microvascular change and possibly small remote infarct in right posterior frontal white matter (2:22). Intracranial arterial calcifications are present. Parenchyma: There is no significant volume loss. Ventricles: Interval decompression of the ventricles. Paranasal sinuses and skull base: Polypoid mucosal thickening and/or inspissated fluid in the right sphenoid sinus. The skull base and imaged soft tissues are unremarkable. IMPRESSION IMPRESSION: Interval decompression of the ventricles. No evidence for acute ischemia or hemorrhage. Transcribe Date/Time: Jul 31 2024 2:24P Dictated by: REX CASEY MD This examination was interpreted and the report reviewed and electronically signed by: REX CASEY MD on Jul 31 2024 2:32PM EST Thank you for allowing us to participate in the care of your patient. Should there be any questions regarding this interpretation, please call [phone]. If you are unable to reach us at the number above, please feel free to contact [facility] at [phone]. [facility] SystemRadiology Study observation (narrative)[facility] Head WO contrastOrdered By: Ccf Provider on 26-48-2925Tviammitu ClinicBasophils Auto (Bld) [#/Vol]on 19-66-7140Dnliugkda (Bld) [#/Vol]Automated basophil count0.0-0.1 [facility] HospitalBasophils/100 WBC Auto (Bld)on 07-28-2024 Basophils/100 WBC (Bld)Automated basophil %0.2-2.0[facility] HospitalEosinophils/100 WBC Auto (Bld)on 74-67-7767Gnsbkcinqzo/100 WBC (Bld) Automated eosinophil %0.9-7.0[facility] HospitalErythrocyte distribution width Auto (RBC) [Ratio]on 13-76-1093Ziebbwixgim distribution width (RBC) [Ratio]Erythrocyte distribution width [Ratio] by Automated countHigh 11.0-15.0[facility] HospitalEstimated glomerular filtration rate (GFR) non- Americanon 42-37-6650ABX/1.73 sq M.predicted among non-blacks MDRD (S/P/Bld) [Vol rate/Area]Estimated glomerular filtration rate (GFR) non- AmericanLow>=60 mL/min/1.73m 2FLancaster Municipal HospitalGlobulin Calc (S) [Mass/Vol]on 36-65-3631Awwpkfqs (S) [Mass/Vol]Serum globulin measurement by calculation (mass/volume)[facility] Hematocrit Auto (Bld) [Volume fraction]on 46-35-7222Irtiblfjfh (Bld) [Volume fraction]Hematocrit [Volume Fraction] of Blood by Automated count36.0-48.0 [facility] HospitalHemoglobin [Mass/volume] in Bloodon 07-28-2024 Hemoglobin (Bld) [Mass/Vol]Hemoglobin [Mass/volume] in Blood12.0-16.0[facility] HospitalLaboratory - Chemistry and Chemistry - challengeon 09-03-4276Huqjrvv [Mass/Vol]3.4 g/dL3.4-5.0[facility] HospitalALP [Catalytic activity/Vol]157 U/AIsci75-871RltpyrkxaTwin City HospitalALT [Catalytic activity/Vol]21 U/H41-69GojpxufpsTwin City HospitalAST [Catalytic activity/Vol]15 U/O88-36PlovvkptbTwin City HospitalBilirubin [Mass/Vol]0.6 mg/dL0.2-1.0[facility] HospitalCalcium [Mass/Vol]9.3 mg/dL8.5-10.1FLancaster Municipal HospitalChloride [Moles/Vol]108 mmol/L Jmth28-936LjymfgdkhTwin City HospitalCO2 [Moles/Vol]22.4 mmol/L21.0-32.0 [facility] HospitalCreatinine [Mass/Vol]1.19 mg/dLHigh0.55-1.02 [facility] HospitalGFR/1.73 sq M.predicted MDRD (S/P/Bld) [Vol rate/Area]56 mL/min/{1.73_m2}Low>=60 mL/min/1.73m 2FLancaster Municipal HospitalGlucose [Mass/Vol]180 mg/bWBgak13-432WffmsipgxT[facility] Hospital Lipase [Catalytic activity/Vol]16.0 U/L16.0-77.0[facility] HospitalPotassium [Moles/Vol]3.9 mmol/L3.5-5.1FLancaster Municipal Hospital Protein [Mass/Vol]7.2 g/dL6.4-8.2FTriHealthodium [Moles/Vol]140 mmol/D838-865CwvraxlukTwin City HospitalUrea nitrogen [Mass/Vol]65.0 mg/dLHigh7.0-18.0[facility] HospitalUrea nitrogen/Creatinine [Mass ratio]54.6 mg/mgTwin City Hospital Laboratory - Hematology and Cell countson 08-49-1662Kkbduonj granulocytes/100 WBC (Bld)0.7 %High0.0-0.5FLancaster Municipal HospitalLaboratory - Urinalysison 02-30-8395Tbhex Ql (Urine sed)NONE SEENNONE SEENTwin City HospitalLeukocytes [#/volume] corrected for nucleated erythrocytes in Blood by Automated counon 02-34-0389VYJ corrected for nucl RBC Auto (Bld) [#/Vol]Leukocytes [#/volume] corrected for nucleated erythrocytes in Blood by Automated coun4.0-11.0[facility] HospitalLymphocytes Auto (Bld) [#/Vol]on 95-63-6191Mbwspmkmaza (Bld) [#/Vol]Lymphocytes [#/volume] in Blood by Automated countLow1.2-3.8[facility] HospitalLymphocytes/100 WBC Auto (Bld)on 72-45-5092Nqarhkzzvow/100 WBC (Bld)Lymphocytes/100 leukocytes in Blood by Automated glrmgLws60.5-60.0[facility] HospitalMCH Auto (RBC) [Entitic mass]on 66-41-1920KWH (RBC) [Entitic mass]MCH [Entitic mass] by Automated count26.7-34.0[facility] HospitalMCHC Auto (RBC) [Mass/Vol]on 35-21-4326CZUI (RBC) [Mass/Vol]MCHC [Mass/volume] by Automated count29.9-35.2FLancaster Municipal HospitalMCV Auto (RBC) [Entitic vol]on 92-04-1917SNL (RBC) [Entitic vol]MCV [Entitic volume] by Automated count 81.0-99.0[facility] HospitalMonocytes Auto (Bld) [#/Vol]on 16-57-0187Jnieurjwe (Bld) [#/Vol]Automated blood monocyte count0.3-0.8[facility] HospitalMonocytes/100 WBC Auto (Bld)on 44-70-6322Vehippabd/100 WBC (Bld)Automated monocyte %1.7-12.0[facility] Neutrophils Auto (Bld) [#/Vol]on 08-42-4364Fxytjxfspae (Bld) [#/Vol]Neutrophils [#/volume] in Blood by Automated countHigh1.4-6.5FLancaster Municipal HospitalNeutrophils/100 WBC Auto (Bld)on 90-36-5262Wcrpubinsdd/100 WBC (Bld) Automated neutrophil %High43.0-75.0[facility] HospitalNo Panel Informationon 29-27-3381Tafof BacteriaLARGE #/HPFAbnormalNONE [facility] CincinnatiUrine Culture ReflexedYE-Guernsey Memorial HospitalUrine Other CastsNONE SEEN #/LPFNONE [facility] Urine Other CrystalsSeen #/HPFAbnormalNone [facility] Urine RBC0-2 #/HPF0-2FLancaster Municipal HospitalUrine Squamous Epithelial CellsNONE SEEN #/LPFNONE/RARETwin City HospitalUrine Triple Phosphate CrystalsRACleveland Clinic Children's Hospital for RehabilitationUrine WBC5-10 #/HPF AbnormalNONE [facility] CincinnatiEosinophils # (Auto)0.1 10 3/uL0.0-0.7FLancaster Municipal HospitalImmature Granulocyte # (Auto)0.06 10 3/uLHigh0.00-0.03[facility] HospitalPlatelet mean volume Auto (Bld) [Entitic vol]on 15-69-0454Txfwzaom mean volume (Bld) [Entitic vol]Platelet mean volume [Entitic volume] in Blood by Automated count9.5-13.5FLancaster Municipal HospitalPlatelets Auto (Bld) [#/Vol]on 65-86-6811Lzuitdqxm (Bld) [#/Vol]Platelets [#/volume] in Blood by Automated -629ZcswxbuuhTwin City HospitalRBC Auto (Bld) [#/Vol]on 27-43-9214WRD (Bld) [#/Vol]Erythrocytes [#/volume] in Blood by Automated countLow4.20-5.40Peoples Hospitalerum or plasma albumin/globulin mass ratioon 92-33-4056Xdazrmn/Globulin [Mass ratio]Serum or plasma albumin/globulin mass ratioPeoples Hospitalerum or plasma anion gap determinationon 24-21-0064Lxade gap [Moles/Vol]Serum or plasma anion gap determinationTwin City HospitalUrine Cultureon 61-67-3525Dxqxmkdu identified Cx Nom (U)ORGANISM: Proteus mirabilis (O:PROMIR) Naubinway Count >100,000 Aerobic DANA Charge (NMIC56) SUSCEPTIBILITY ORGANISM: O:PROMIR ANTIBIOTIC INTERPRETATION DANA Amikacin S <16 Amoxacillin/K Clavulanate S <8 Ampicillin S <8 Ampicillin/Sulbactam S <4 Aztreonam S <4 Cefazolin S <2 Cefepime S <2 Ceftazidime S <1 Ceftazidime/Avibactam S <4 Ceftolozane/Tazobactam S <2 Ceftriaxone S <1 Cefuroxime S <4 Ciprofloxacin S <0.25 Ertapenem S <0.5 Gentamicin S <2 Levofloxacin S <0.5 Meropenem S <1 Meropenem/Vaborbactam S <2 Piperacillin/Tazobactam S <8 Tobramycin S <2 Trimethoprim/Sulfamethoxazole S <0.5 S = SUSCEPTIBLE I = INTERMEDIATE R = RESISTANT BLANK = DATA NOT AVAILABLE, OR DRUG NOT ADVISABLE OR TESTED R* = RESISTANCE DUE TO EXTENDED SPECTRUM BETA-LACTAMASES ESBL = EXTENDED SPECTRUM BETA-LACTAMASE TFG = THYMIDINE-DEPENDENT STRAIN JADE = BETA-LACTAMASE POSITIVE IB = INDUCIBLE BETA-LACTAMASE. APPEARS IN PLACE OF 'S' WITH SPECIES KNOWN TO POSSESS INDUCIBLE BETA-LACTAMASES. POTENTIALLY THEY MAY BECOME RESISTANT TO ALL B-LACTAM DRUGS. PERFORMED BY: [facility] [address] [place] [address] PATHOLOGIST PROCESSING SUPERVISOR LANETTE KATZ M.D.NormalHca Florida Putnam Hospital Physician GroupComment on above: Performed By: #### CUU #### [place] [address] USAUrine cultureOrdered By: Vladimir Rios on 30-03-9299Qbinssab identified Cx Nom (U)AbnormalTwin City HospitalCNOVon 07-22-[address] CH[facility]IS TOBAR ([id number]) 1965 F Date Time Provider Department 07/22/24 3:15 PM NOEL DANIELS MERGED WITH [facility] During your visit today, we recorded the following information about you: Temperature Pulse Blood pressure 100.1 degrees 81/minute 115/68 Noel Daniels MD 07/22/2024 4:40 PM Signed BOTULINUM TOXIN THERAPY Patient accompanied by : Self Current complaints: Spasticity and spasms Brief HPI: Chikis Marquita Tobar is a 58 year old right-handed female with past medical history of T1DM c/b DKA, urothelial carcinoma of the bladder s/p radical cystectomy and ileal conduit c/b SBO (Dec 2021), HTN, chronic sinusitis, asthma, fungal meningitis, myelitis and hydrocephalus status post 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 placement June 2022, externalization on 06/25/2023, removal 07/10/2023 and reimplantation on 10/15/2023. Patient experienced impaired mobility and ADLs after removal of shunt and noted minimal improvement in lower extremity function post shunt reimplantation. She was evaluated in [facility] spasticity clinic initially on 12/04/2023 for paraplegia and associated severe spasticity and flexor spasms. [facility] She lives on her own in a ranch type house with all arrangement on the same level, She does transfers using a slide board at home. . She received initial botulinum toxin injection on 01/11/2024 and reports to clinic today for next set of botulinum toxin A injections. History since last visit: Reports good benefit with Botox. Continues to help with spasms, Reduced frequency and intensity of spasms. She also uses a wedge at night which keeps her leg in a spasm free position. She is able to sleep better at night due to reduced spasms. She has noticed improvement in upper body strength. Denies any side effects due to phenol neurolysis. Feels that she is still has sustained effect of phenol injection. She is happy with progress in Therapy. She was able to stand with platform walker and walk up to 25 feet consistently during therapy. -Most recent botulinum toxin injection: 04/15/24 -Hospitalization/ER visit: No -New weakness or numbness: No -Fever or flu like symptoms : No -Ongoing antibiotics: No -Change in bowel or bladder function: No -Other: Improving left heel wound, follows up with local wound clinic She will be reevaluated in lymphedema clinic soon Wheelchair decision pending with insurance approval/review -Anticoagulation/antiplatelet medications: Aspirin Spasticity treatment: -Home exercise routine: - -PT/OT: PT and OT- 2 times/week-helpful -Medications: Baclofen 10 mg-10 mg - 20 mg -Botulinum toxin therapy: Yes- effective -Other/orthosis: No Patient goals: -reduce lower extremity spasms -achieved (reduction in MACHO spasm frequency scale from 6 to 3 today) -Reduce discomfort/pain associated with spasms (achieved) -Improve participation in therapies (achieved) -Improve positioning in bed, wheelchair (achieved) -Improve mobility/transfers and ambulation (progressing) BT therapy effective? Yes - stiffness, spasms/cramps, active function and ease of care Duration of benefit: 10 weeks Side effects: No Spasm scale: 1=Mild spasms induced by stimulation (Spasm severity 2) Pain related to the purpose of the visit: No 0 on a scale of 0 to 10 Patient Entered Data PROMIS No data to display Spasticity NRS 07/22/2024 04/15/2024 -- Spasm Scale 1=Mild spasms induced by stimulation 2=Infrequent full spasms occuring less than once per hour Spasm Scale - Trendable Number 1 2 Spasm Scale No data to display Global Impression of Change No data to display Nutritional status: appetite , weight , swallowing - stable Driving issues: NA Safety concerns regarding living situations and safety at home: NA At risk for falling: Yes . slid down on the floor from wheelchair after falling asleep- no injury sustained Examination: BP 115/68 (BP Site: Right Arm, BP Position: Sitting, BP Cuff Size: Regular Adult) Pulse 81 Temp 37.8 ?C (100.1 ?F) (Temporal) SpO2 98% General: The patient is a well-nourished, well groomed who appears stated age. HEAD: Normocephalic EYE: -Appearance: Sclera nonicteric, PERRLA ENT: no rhinorrhea, MMM Lung: breathing unlabored in room air Skin: skin turgor is normal. Healed midline incision over anterior abdomen present. Left heel wound dressing and bandage present, No soakage or discharge. GI/: Insulin pump present over left anterior abdomen Ileal conduit with external collecting bag noted on right side draining clear urine. Extremity: edema noted in both lower extremities, reduced distal lower extremity edema Neuro: The patient was alert and oriented Articulated speech with intact comprehension Strength Right Left Shoulder abduction 4 5 Elbow flexion 5 5 Elbow extensio (more content not included)...NormalPremier Health Miami Valley Hospital Southsruthi 41-54-2076BDUUVdhkqi Visit (NREUS2) CHIKIS TOBAR ([id number]) 1965 F Date Time Provider Department 07/17/24 12:30 PM MARLENE CORDERO NREUS2 During your visit today, we recorded the following information about you: Pulse Blood pressure 65/minute 110/56 Marlene Cordero PA-C 07/17/2024 1:20 PM Signed CC: 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 f/u HPI: Mrs Chiiks Tobar is a 58 year old female with 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 Chikis's shunt was previously removed at [facility] on 07/10/23 following surgery for bowel obstruction followed by worsening symptoms.shunt was reimplanted on 10/11/23 with multiple episodes of slit like ventricles and previous hygroma development with shunt set to 7. Her valve is currently set to 8. Since last visit, Chikis continues to work with therapy without much improvement in gait. She is limited by weakness, lymphedema and spasticity. She is unable to walk with walker on her own. No new onset symptoms. Focused Exam: Right frontal shunt site examined, [...] CN XII: Tongue protrusion full and midline Wheel chair dependent Impression: Chikis Tobar is a pleasant 58 year old female with a history of communicating hydrocephalus. 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 Her shunt was re inserted on 10/11/23 with Certas valve. Chikis's ambulation and leg movement continue to be severely limited by weakness, spasticity and lymphedema. She is wheel chair dependent but continues to work with PT and can walk very short distance at PT with a walker. CT brain shows slight interval increase in ventricular system without acute abnormality. Discussed in detail possible benefits and risks of 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 adjustment. After discussion with Chikis, she would like to undergo shunt adjustment. Certas valve shunt was adjusted from 8 to 7. We discussed in detail the warning signs and symptoms of overdrainage as well as when to contact our office or present to the ED if concern is severe. Due to previous slight like ventricles in the past at 7, Chikis understands she must repeat CT brain in 2 weeks. Plan: Shunt information Shunt type: Certas Initial settin New settin Marlene Cordero PA-C Allergies As of Date: 07/17/2024 Noted Allergy Reaction DEMERAL (MEPERIDINE) 02/09/2021 8 - GI Upset Comments: Nausea, pt states room spins FLEXERIL (CYCLOBENZAPRINE) 02/09/2021 4 - Hives ORPHENADRINE 09/30/2015 14 - Other: See Comments 4 - Hives 2 - Rash VERSED (MIDAZOLAM) 02/18/2021 1 - Mental Status Change Date Reviewed: 07/17/2024 Reviewed by: Promise Chavez MA - Fully Assessed Reason for Visit: Follow Up [171] Primary Visit Diagnosis:Other hydrocephalus (HCC) [G91.8] Order(s):CT BRAIN WO TRAON [1278246] Order #: [id number] FUTURE Prescriptions as of 07/17/2024 - baclofen 10 mg tablet Take 1 tablet by mouth two times a day AND 2 tablets daily at bedtime. - potassium chloride SR (MICRO-K) 10 mEq CR capsule Take 1 capsule by mouth every afternoon. - bumetanide (BUMEX) 1 mg tablet Take 1 tablet by mouth every 12 hours. - oxyCODONE ir (OXYIR) 5 mg capsule Take 5 mg by mouth every 4 hours as needed for pain. - cyanocobalamin (VITAMIN B-12) 1,000 mcg tab Take 1,000 mcg by mouth. - glucagon 3 mg/actuation nasal spray (BAQSIMI) - ondansetron orally disintegrating (ZOFRAN ODT) 4 mg disintegrating tablet Take 4 mg by mouth every 6 hours as needed. - DULCOLAX, BISACODYL, RECTAL by RECTAL route once daily as needed. - lisinopril (ZESTRIL) 40 mg tablet Take 40 mg by mouth once daily. - acetaminophen (TYLENOL) 650 mg suppository 650 mg by RECTAL route every 4 hours as needed for pain or fever (specify temp.). - dextrose 40 % gel Take 15 g by mouth as needed. - insulin aspart U-100 (NOVOLOG) 100 unit/mL Use via insulin pump Max daily dose 100 units, DX: E10.65 - acetaminophen (TYLENOL) 325 mg tablet 2 tablets by ORAL/FEEDING TUBE route every 6 hours as needed for pain. - aspirin, enteric coated (ADULT LOW DOSE ASPIRIN) 81 mg EC tablet Start ASA 81 mg (more content not included)...NormalMercy Health Allen Hospital Aerobic Cultureon 17-63-8726Drconfj CultureORGANISM: Methicillin Resis Staph Aureus (O:MRSA) Quantity of Growth Moderate Growth No Anaerobes Isolated 3 Days Gram Stain Result Rare Gram Positive Cocci Rare White Blood Cells Aerobic DANA Charge (PCMIC38) SUSCEPTIBILITY ORGANISM: O:MRSA ANTIBIOTIC INTERPRETATION DANA Azithromycin R >4 Ceftaroline S <0.5 Clindamycin R >4 Daptomycin S 1 Linezolid S 2 Oxacillin R >2 Penicillin R 0.12 Tetracycline S <4 Trimethoprim/Sulfamethoxazole S <0.5 Vancomycin S 1 S = SUSCEPTIBLE I = INTERMEDIATE R = RESISTANT BLANK = DATA NOT AVAILABLE, OR DRUG NOT ADVISABLE OR TESTED R* = RESISTANCE DUE TO EXTENDED SPECTRUM BETA-LACTAMASES ESBL = EXTENDED SPECTRUM BETA-LACTAMASE TFG = THYMIDINE-DEPENDENT STRAIN JADE = BETA-LACTAMASE POSITIVE IB = INDUCIBLE BETA-LACTAMASE. APPEARS IN PLACE OF 'S' WITH SPECIES KNOWN TO POSSESS INDUCIBLE BETA-LACTAMASES. POTENTIALLY THEY MAY BECOME RESISTANT TO ALL B-LACTAM DRUGS. PERFORMED BY: [place] [address] PATHOLOGIST PROCESSING SUPERVISOR LANETTE KATZ M.D.NormalHca Florida Putnam Hospital Physician GroupComment on above: Performed By: #### AERC #### [place] [address] USAAnaerobic cultureOrdered By: Sharan Dominguez on 07-14-2024 Bacteria identified Anaer cx Nom (Unsp spec)Anaerobic cultureFirChillicothe HospitalBacteria identified Aer cx Nom (Unsp spec)Ordered By: Sharan Dominguez on 77-01-1304Ogpmpyb CultureAbnormalTwin City HospitalGram stain microscopyOrdered By: Sharan Dominguez on 22-22-5766Ngdnuxkztmc observation Gram stain Nom (Unsp spec)Gram stain microscopyTwin City HospitalCNPN on 71-66-5152GRJBYcawqhaed (NREUS2) CHIKIS TOBAR ([id number]) 1965 F Date Time Provider Department 07/03/24 MARLENE CORDERO NREUS2 During your visit today, we recorded the following information about you: Marlene Cordero PA-C 07/03/2024 3:55 PM Signed Multiple calls to Chikis with no answer. Detailed message left explaining CT brain results. Her shunt is currently set to 8/off. Gave instructions to set up follow up visit. Call back number provided. Marlene Cordero PA-C [facility] 07/07/2024 9:37 AM Signed Pt returned Marlene's call and first available w/him is late July. Pt's aware Marlene's OOO this week and thought may be he could see her sooner than late July for follow up visit - [phone]. Raul Griggs PA-C 07/07/2024 1:54 PM Signed A message has been sent to the schedulers. There is a slot 07/17/24 at 12:30 PM that can be used if needed. CT brain is needed prior to appt. Raul Griggs PA-C Allergies As of Date: 07/03/2024 Noted Allergy Reaction DEMERAL (MEPERIDINE) 02/09/2021 8 - GI Upset Comments: Nausea, pt states room spins FLEXERIL (CYCLOBENZAPRINE) 02/09/2021 4 - Hives ORPHENADRINE 09/30/2015 14 - Other: See Comments 4 - Hives 2 - Rash VERSED (MIDAZOLAM) 02/18/2021 1 - Mental Status Change Date Reviewed: 07/02/2024 Reviewed by: Reagan Santos MA - Fully Assessed Prescriptions as of 07/07/2024 - baclofen 10 mg tablet Take 1 tablet by mouth two times a day AND 2 tablets daily at bedtime. - potassium chloride SR (MICRO-K) 10 mEq CR capsule Take 1 capsule by mouth every afternoon. - bumetanide (BUMEX) 1 mg tablet Take 1 tablet by mouth every 12 hours. - oxyCODONE ir (OXYIR) 5 mg capsule Take 5 mg by mouth every 4 hours as needed for pain. - cyanocobalamin (VITAMIN B-12) 1,000 mcg tab Take 1,000 mcg by mouth. - glucagon 3 mg/actuation nasal spray (BAQSIMI) - ondansetron orally disintegrating (ZOFRAN ODT) 4 mg disintegrating tablet Take 4 mg by mouth every 6 hours as needed. - DULCOLAX, BISACODYL, RECTAL by RECTAL route once daily as needed. - lisinopril (ZESTRIL) 40 mg tablet Take 40 mg by mouth once daily. - acetaminophen (TYLENOL) 650 mg suppository 650 mg by RECTAL route every 4 hours as needed for pain or fever (specify temp.). - dextrose 40 % gel Take 15 g by mouth as needed. - insulin aspart U-100 (NOVOLOG) 100 unit/mL Use via insulin pump Max daily dose 100 units, DX: E10.65 - acetaminophen (TYLENOL) 325 mg tablet 2 tablets by ORAL/FEEDING TUBE route every 6 hours as needed for pain. - aspirin, enteric coated (ADULT LOW DOSE ASPIRIN) 81 mg EC tablet Start ASA 81 mg BID on 10/24 Patient should start on October 25, 2023. - metoprolol succinate ER (TOPROL XL) 100 mg Take 1 tablet by mouth every 12 hours at 6 am and 6 pm. - posaconazole DR (NOXAFIL) 100 mg tablet Take 3 tablets by mouth once daily. - senna-docusate (SENNA-S) 8.6-50 mg per tablet 1 tablet by ORAL/FEEDING TUBE route two times a day. - lactobacillus rhamnosus (CULTURELLE) 10 billion cell capsule (Discontinued) Take 1 capsule by mouth once daily. Problem List As Of Date 07/03/2024 Noted Resolved Neoplasm of bladder [D49.4] 02/16/2021 Asthma [J45.909] 02/16/2021 Essential hypertension [I10] 02/16/2021 Palpitations [R00.2] 02/16/2021 Obesity [E66.9] 02/16/2021 06/11/2022 Diabetes mellitus type I (HCC) [E10.9] Malignant neoplasm of urinary bladder (HCC) [C6*04/20/2021 Small bowel obstruction (HCC) [K56.609] 12/16/2021 12/21/2021 Severe protein-calorie malnutrition (HCC) [E43] 12/20/2021 Hypokalemia [E87.6] 12/21/2021 Hypophosphataemia [E83.39] 12/21/2021 Hyponatremia [E87.1] 01/05/2022 Hypomagnesemia [E83.42] 01/05/2022 Hydronephrosis [N13.30] 01/09/2022 Chronic low back pain without sciatica [M54.50,*03/13/2022 Lesion of lumbar spine [M89.9] 06/10/2022 Spinal cord mass (HCC) [G95.89] 06/15/2022 Unstageable pressure ulcer of sacral region (HC*06/16/2022 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] 09/05/2023 Tibia/fibula fracture, left, closed, initial en*10/07/2023 Dyslipidemia [E78.5] 10/07/2023 10/18/2023 Insulin pump status [Z96.41] 10/07/2023 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*10/07/2023 Fungal meningitis [G02] 10/07/2023 Gait abnormality [R26.9] 10/07/2023 Acute postoperative anemia due to expected bloo*10/09/2023 Hydrocephalus (HCC) [G91.9] 10/11/2023 Type 1 diabetes mellitus with hyperglycemia (HC*10/11/[address] [Z96.41] 10/11/2023 Recurrent falls [R29.6] 10/11/2023 Pressure injury of left heel, stage 1 [L89.621] 10/12/2023 10/12/2023 Deep tissue injury [T14.8XXA] 10/12/2023 Pressure injury of coccygeal region, stage 2 (H*10/12/2023 10/17/2023 Preop exam for internal medicine [Z01.818] 10/12/2023 10/18/2023 Pressure injury of deep tissue of left heel [L8*10/12/2023 Alteration in self-care ability [R68.89] (more content not included)...Normal [facility] angio abd aorta runoffon 67-19-0823XE angio abd aorta runoffSELECT [facility]ICAL [facility] Main Dawn [address] [place] [address] CT Scan Report Signed Patient: Chikis Tobar MR#: [id number] : 1965 Acct:[id number] Age/Sex: 59 / F ADM Date: 07/03/24 Loc: CT Room: Type: [facility] Attending Dr: Chip Hagen MD Copies to: Chip Hagen MD Ordering Provider: Chip Hagen MD Date of Service: 07/03/24 CT/CT angio abd aorta runoff: I70.213 - Atherosclerosis of benton arteries of extremiti... CTA abdomen, pelvis, and bilateral lower extremities . CLINICAL DATA: Difficulty walking. Lymphedema. History of bladder cancer.. TECHNIQUE: Intravenous contrast-enhanced CT angiography of the abdomen, pelvis, and bilateral lower extremities was performed. Axial, sagittal, coronal, and 3D-dimensional reconstructions were created and reviewed. This CT exam was performed using one or more of the following dose reduction techniques: Automated exposure control, adjustment of the mA and/or kV according to patient size, or use of iterative reconstruction technique. COMPARISON: CT abdomen and pelvis 05/31/2022. FINDINGS: Lung Bases: Mild lung scarring. Organs:Liver gallbladder spleen pancreas adrenal glands and kidneys all appear unremarkable. Abdominal aorta appears normal in caliber with mild calcification. No aneurysm, dissection or rupture is seen. No critical stenosis or occlusion involving the major visceral branches. Mild calcification involving the iliac vasculature without critical stenosis or occlusion.[ GI: Stomach is grossly unremarkable. Small bowel appears nondilated. No acute colonic abnormality is seen. Right hemicolectomy changes.[ Pelvis:[Urinary bladder has been removed. Ileal conduit is present.] Peritoneum/Retroperitoneum:No free air or free fluid or lymphadenopathy.[ Abd wall/Bones:Abdominal wall demonstrates no acute findings. Osseous structures demonstrate degenerative change.[ Lower extremities: Left : Left common femoral artery demonstrates mild calcification without critical stenosis or occlusion. Mild calcification involving the high school principal branches without occlusion. Left SFA demonstrates mild calcification without critical stenosis or occlusion. Popliteal artery demonstrates mild calcification without occlusion. Tibioperoneal trunk, anterior tibial, posterior tibial and peroneal arteries demonstrate calcification and appear patent to the level of the ankle. Evaluation of the level of the ankle is suboptimal due to streak artifact from the patient's tibial hardware. Visualized portions of the dorsalis pedis artery appear patent. Distal soft tissue swelling is present. No fluid collection or mass. Musculature appears atrophic. Hardware involving the tibia. Osseous structures demonstrate degenerative change. Right: Right common femoral artery demonstrates mild calcification without critical stenosis or occlusion. Mild calcification involving the high school principal branches without occlusion. Right SFA demonstrates mild calcification without critical stenosis or occlusion. Popliteal artery demonstrates mild calcification without occlusion. Tibioperoneal trunk, anterior tibial, posterior tibial and peroneal arteries demonstrate calcification and appear patent to the level of the ankle. Dorsalis pedis artery appears patent. Distal soft tissue swelling is present. No fluid collection or mass. Musculature appears atrophic. Osseous structures demonstrate degenerative change. CT/CT angio abd aorta runoff IMPRESSION: 1. Distal bilateral lower extremity soft tissue swelling. No definite occlusion is seen involving the major vessels of the lower extremities. 2. No acute intra-abdominal process. Impression dictated by: Afshin Jones Jr., D.OGiancarlo07/03/2024 3:41 PM Dictation Location: [place] [address] Transcribed By: [facility] 07/03/24 1541 Dictated By: Afshin Jones Jr, DO 07/03/24 1531 Signed By: 07/03/24 1541[facility](1,3)-G-I-[id number] 07-02-2024 (1,3) B-D GLUCAN<31Normal<60[facility] HospitalComwal[facility] p[facility] on above:Order Comment: Specimen Type: BLOOD SPECIMENOrdering Facility: [facility] Address:[address] [place], [place] [address]Performed By: #### BDGLUC ####[facility] LABCLIA [id number] [place] [address] [place](1,3) B-D GLUCAN QUALNegative NormalNegativeBrown Memorial Hospital on above:Order Comment: Specimen Type: BLOOD SPECIMENOrdering Facility: [facility] Address:[address] [place], [place] [address]Performed By: #### BDGLUC ####[facility] LABCLIA [id number] [place] [address] [place] AMERICABasophils Auto (Bld) [#/Vol]on 58-93-8158Hbclguwhx (Bld) [#/Vol]Automated basophil count<0.11[facility] Basophils/100 WBC Auto (Bld)on 14-73-7549Oniwqvdfa/100 WBC (Bld)Automated basophil %[facility] HospitalBlood manual differential comment interpretation narrativeon 33-51-3127Hplcku differential comment Reymundo (Bld) [Interp]Blood manual differential comment interpretation narrativeTwin City HospitalCB W Auto Differential panel (Bld)on 74-25-6537Eewialunr (Bld) [#/Vol]0.04 10*3/uLNormal<0.11CBl[facility] on above: Order Comment: Specimen Type: BLOOD SPECIMENOrdering Facility: [facility] Address:[address] [place], [place] [address]Performed By: #### 48237- 8 ####[facility] LABCLIA [id number] [place] [address] [place] AMERICABasophils/100 WBC (Bld)0.6 % NormalBrown Memorial Hospital on above:Order Comment: Specimen Type: BLOOD SPECIMENOrdering Facility: [facility] Address:[address] [place], [place] [address]Performed By: #### 71222-5 ####[facility] LABCLIA [id number] [place] [address] [place] AMERICADifferential cell count method Nom (Bld)AutoNormalCBlanchard Valley [facility]uff[facility] on above:Order Comment: Specimen Type: BLOOD SPECIMENOrdering Facility: [facility] Address:[address] [place], [place] [address]Performed By: #### 05316-0 ####[facility] LABCLIA [id number] [place] [address] [place] AMERICAEosinophils (Bld) [#/Vol]0.10 10*3/uLNormal<0.46[facility] on above:Order Comment: Specimen Type: BLOOD SPECIMENOrdering Facility: [facility] Address:[address] [place], [place] [address]Performed By: #### 13149-1 ####[facility] LABIA [id number] [place] [address] [place] Eosinophils/100 WBC (Bld)1.4 %NormalBrown Memorial Hospital on above: Order Comment: Specimen Type: BLOOD SPECIMENOrdering Facility: [facility] Address:[address] [place], [place] [address]Performed By: #### 51920- 8 ####[facility] LABIA [id number] [place] [address] [place] AMERICAErythrocyte distribution width (RBC) [Ratio]14.4 %Qpkiyx38.5-15.0[facility] on above: Order Comment: Specimen Type: BLOOD SPECIMENOrdering Facility: [facility] Address:[address] [place], [place] [address]Performed By: #### 87012- 8 ####[facility] LABCLIA [id number] [place] [address] [place] AMERICAHematocrit (Bld) [Volume fraction]40.5 %Wwxfjp93.0-46.0[facility] on above:Order Comment: Specimen Type: BLOOD SPECIMENOrdering Facility: [facility] Address:[address] [place], [place] [address]Performed By: #### 48087- 8 ####[facility] LABIA [id number] [place] [address] [place] AMERICAHemoglobin (Bld) [Mass/Vol]13.0 g/oCFpwodj47.5-15.5CBlanchard Valley [facility] on above:Order Comment: Specimen Type: BLOOD SPECIMENOrdering Facility: [facility] Address:[address] [place], [place] [address]Performed By: #### 30801-3 ####[facility] LABIA [id number] [place] [address] [place] AMERICAImmature granulocytes (Bld) [#/Vol]0.03 10*3/uLNormal<0.10[facility] on above:Order Comment: Specimen Type: BLOOD SPECIMENOrdering Facility: [facility] Address:[address] [place], [place] [address]Performed By: #### 38152- 8 ####[facility]PITALIA [id number] [place] [address] [place] AMERICAImmature granulocytes/100 WBC (Bld)0.4 %NormalBrown Memorial Hospital on above:Order Comment: Specimen Type: BLOOD SPECIMENOrdering Facility: [facility] Address:[address] [place], [place] [address]Performed By: #### 67394-4 ####[facility] LABIA [id number] [place] [address] [place] AMERICALymphocytes (Bld) [#/Vol]1.12 10*3/uLNormal1.00-4.00[facility] on above:Order Comment: Specimen Type: BLOOD SPECIMENOrdering Facility: [facility] Address:[address] [place], [place] [address]Performed By: #### 17579-1 ####[facility] LABIA [id number] [place] [address] [place] AMERICALymphocytes/100 WBC (Bld)16.2 % NormalBrown Memorial Hospital on above:Order Comment: Specimen Type: BLOOD SPECIMENOrdering Facility: [facility] Address:[address] [place], [place] [address]Performed By: #### 20640-8 ####[facility] LABIA [id number] [place] [address] [place] [facility] LIMAMCH (RBC) [Entitic mass]29.0 kkLuhixj20.0-34.0[facility] on above:Order Comment: Specimen Type: BLOOD SPECIMENOrdering Facility: [facility] Address:[address] [place], [place] [address]Performed By: #### 61031-6 ####[facility] [id number] [place] [address] [place] MCHC (RBC) [Mass/Vol]32.1 g/gNDzctoi77.5-36.0[facility] on above:Order Comment: Specimen Type: BLOOD SPECIMENOrdering Facility: [facility] Address:[address] [place] [address] Performed By: #### 67565-6 ####[facility] LABIA [id number] [place] [id number] [place] MCV (RBC) [Entitic vol]90.2 pFCerebi79.0-100.0[facility] on above:Order Comment: Specimen Type: BLOOD SPECIMENOrdering Facility: [facility] Address:[address] [place] [address] Performed By: #### 75820-7 ####[facility] LAB[facility] [id number] [place] [id number] [place] Monocytes (Bld) [#/Vol]0.68 10*3/uLNormal<0.87[facility] on above:Order Comment: Specimen Type: BLOOD SPECIMENOrdering Facility: [facility] Address:[address] [place] [address] Performed By: #### 86397-6 ####[facility] LABCLIA [id number] [place] [address] [place] Monocytes/100 WBC (Bld)9.8 %NormalBrown Memorial Hospital on above: Order Comment: Specimen Type: BLOOD SPECIMENOrdering Facility: [facility] Address:[address] [place], [place] [address]Performed By: #### 48312- 8 ####[facility] LABCLIA [id number] [place] [address] [place] AMERICANeutrophils (Bld) [#/Vol]4.94 10*3/uLNormal1.45-7.50[facility] on above:Order Comment: Specimen Type: BLOOD SPECIMENOrdering Facility: [facility] Address:[address] [place], [place] [address]Performed By: #### 97338-9 ####[facility] LABCLIA [id number] [place] [address] [place] AMERICANeutrophils/100 WBC (Bld)71.6 % NormalBrown Memorial Hospital on above:Order Comment: Specimen Type: BLOOD SPECIMENOrdering Facility: [facility] Address:[address] [place], [place] [address]Performed By: #### 12561-8 ####[facility] LABCLIA [id number] [place] [address] [place] AMERICANucleated RBC (Bld) [#/Vol]10*3/uLNormal<0.01[facility] on above:Order Comment: Specimen Type: BLOOD SPECIMENOrdering Facility: [facility] Address:[address] [place], [place] [address]Performed By: #### 43934-1 ####[facility] LABCLIA [id number] [place] [address] [place] Nucleated RBC/100 WBC (Bld) [Ratio]0.0 /100 WBCNormalCFlower Hospital Comment on above:Order Comment: Specimen Type: BLOOD SPECIMENOrdering Facility: [facility] Address:[address] [place] [address] Performed By: #### 17513-5 ####[facility] LABIA [id number] [place] [address] [place] Platelet mean volume (Bld) [Entitic vol]9.4 fLNormal9.0-12.7CBl[facility]ard [facility] on above:Order Comment: Specimen Type: BLOOD SPECIMENOrdering Facility: [facility] Address:[address] [place], [place] [address]Performed By: #### 42502-2 ####[facility] LABIA [id number] [place] [address] [place] Platelets (Bld) [#/Vol]324 10*3/wGNbzydz784-286PsuwrylojPremier Health Miami Valley Hospital Southment on above:Order Comment: Specimen Type: BLOOD SPECIMENOrdering Facility: [facility] Address:[address] [place] [address] Performed By: #### 57651-6 ####[facility] LABCLIA [id number] [place] [address] [place] RBC (Bld) [#/Vol]4.49 10*6/uLNormal3.90-5.20[facility] on above:Order Comment: Specimen Type: BLOOD SPECIMENOrdering Facility: [facility] Address:[address] [place], [place] [address]Performed By: #### 25767-8 ####[facility] LABCLIA [id number] [place] [id number] [facility] AMERICAWBC (Bld) [#/Vol]6.91 10*3/uLNormal3.70-11.00[facility] on above:Order Comment: Specimen Type: BLOOD SPECIMENOrdering Facility: [facility] Address:[address] [place] [address] [place], [place] [address]Performed By: #### 99157-0 ####[facility] [id number] [place] [id number] [place] MARINE HOSPITALCNOVon 89-42-1882REPVXfrwqj Visit (INFDMN) CHIKIS TOBAR ([id number]) 1965 F Date Time Provider Department 07/02/24 9:30 AM JAMIE MCCARTY INFDMN During your visit today, we recorded the following information about you: Temperature Pulse Respiration Blood pressure 99 degrees 72/minute 18/minute 133/47 Jamie Mccarty MD 08/02/2024 10:15 PM Signed INFECTIOUS DISEASES OUTPATIENT FOLLOW-UP NOTE SERVICE DATE: July 02, 2024 Last visit:April 10, 2024 Summary of HPI HPI: 59 year old female with medical history of [...] performed and she was transferred to [facility]. She was found to have DKA. A CT head showed hydrocephalus with MRI on May 29, 2022 showing multiple areas of enhancement in the anterior sabra, medulla, and in the spine at the level of C7-T3 and L1-S2. Multiple taps were performed and were unsuccessful. A 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 was placed and patient underwent a meningeal biopsy 06/26/2022 which pathology showed hyphae elements. PCR sent from multiple tissue samples and CSF next gen sequencing were all negative. She was started on posaconazole to cover molds. While taylor can present with pseudohyphae, it did not grow, with concerns for other molds rather than yeast CT 08/16/2022 Relative normalization of ventricular caliber with resolved asymmetric slit like appearance of the right lateral ventricle with shunt in place since 08/16/2022. Small subdural hygromas over the frontal lobes (8 mm). LFTs 08/16 normal . 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 was adjusted from 4 to 7 Posaconazole level 2.4 on 08/21/22 Developed a facial rash in September 2022, mainly the malar area, a few spots on the forehead. Dx'd with rosacea by PCP and started on metronidazole gel. She was seeing wound care at [facility] for her sacral area ulcer. Rx'd with medical honey gel and silicone bordered foam bandage. Healed over several months At her ID clinic visit 10/18/22 she was doing very well. The rash had improved over malar region with a few papules on forehead. Appeared c/w rosacea, [...] decrease in smal bifrontal convexity subdural hygromas. 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 Has gained wt. Urology felt her urothelial CA was CHRISTINE on surveillance imaging, urine cytology. Continue surveillance imaging q 6 months. [place] remains in place. ID clinic 01/15/23, doing fairly well overall, tolerating posaconazole. Strength improving and ambulatory, using a cane PRN. No 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 issues. Balance has improved but still [...] of antifungals and then reassess with imaging. ID clinic 03/19/23: Seemed to have reached a plateau with her neuro recovery, with stable balance problems and various areas of sensory loss. Neuro exam showed abno (more content not included)...NormalMercy Health Allen HospitalCRP SerPl-mCncon 46-43-4829WKR [Mass/Vol]mg/LNormal<0.9CFlower Hospital Comment on above:Order Comment: Specimen Type: BLOOD SPECIMENOrdering Facility: [facility] Address:[address] [place] [address] Performed By: #### 1988-5, 80413-0 ####[facility] LABCLIA [id number] [facility] CENTERSUSAN [facility] [id number] [place] [address] [place] Comprehensive metabolic 2000 panelon 44-41-2683Gzjisla [Mass/Vol]4.2 g/dLNormal 3.9-4.9CBlanchard [facility] on above:Order Comment: Specimen Type: BLOOD SPECIMENOrdering Facility: [facility] Address:[address] [place], [place] [address]Performed By: #### 1987-08, ####[facility] LABCLIA [id number] [place] [id number] [place] AMERICAALP [Catalytic activity/Vol]136 U/CGyes57-512IaqcucjufBrown Memorial Hospital on above:Order Comment: Specimen Type: BLOOD SPECIMENOrdering Facility: [facility] Address:[address] [place], [place] [address]Performed By: #### 1987-08, ####[facility] LABCLIA [id number] [place] [id number] [place] AMERICAALT [Catalytic activity/Vol]11 U/LNormal7-38[facility] on above:Order Comment: Specimen Type: BLOOD SPECIMENOrdering Facility: [facility] Address:[address] [place], [place] [address]Performed By: #### 1987-08, ####[facility] LABIA [id number] [place] [address] [place] Anion gap [Moles/Vol]12 mmol/LNormal8-15[facility] on above:Order Comment: Specimen Type: BLOOD SPECIMENOrdering Facility: [facility] Address:[address] [place], [place] [address]Performed By: #### 1987-08, ####[facility] LABIA [id number] [place] [id number] [place] AMERICAAST [Catalytic activity/Vol]15 U/TMbwedc99-42ChlbjpwmdBrown Memorial Hospital on above:Order Comment: Specimen Type: BLOOD SPECIMENOrdering Facility: [facility] Address:[address] [place], [place] [address]Performed By: #### , ####[facility] LABCLIA [id number] [facility] [place] [address] [place] AMERICABilirubin [Mass/Vol]0.4 mg/dLNormal0.2-1.3CBlanchard Valley Health [facility] on above:Order Comment: Specimen Type: BLOOD SPECIMENOrdering Facility: [facility] Address:[address] [place], [place] [address]Performed By: #### ####[facility] LABCLIA [id number] [facility] [place] [address] [place] AMERICACalcium [Mass/Vol]10.3 mg/dLHigh 8.5-10.2ClevelAtrium HealthComwalter p. reuther psychiatric hospital on above:Order Comment: Specimen Type: BLOOD SPECIMENOrdering Facility: [facility] Address:[address] [place], [place] [address]Performed By: #### 1987-08, ####[facility] LABIA [id number] [place] [address] [place] AMERICAChloride [Moles/Vol]103 mmol/FRyspfm19-922 [facility] HospitalComwalter p. [facility] psychiatric hospital on above:Order Comment: Specimen Type: BLOOD SPECIMENOrdering Facility: [facility] Address:[address] [place], [place] [address]Performed By: #### 1987-08, ####[facility] LABCLIA [id number] [facility]ENT[facility] [place] [id number] [place] AMERICACO2 [Moles/Vol]27 mmol/SAharyb50-10RkaawjvuoMercy Health Allen Hospital Comment on above:Order Comment: Specimen Type: BLOOD SPECIMENOrdering Facility: [facility] Address:[address] [place], [place] [address] Performed By: #### 1987-08, ####[facility] LABCLIA [id number] [address] [address] [place] Creatinine [Mass/Vol]0.76 mg/dLNormal0.58-0.96[facility] on above:Order Comment: Specimen Type: BLOOD SPECIMENOrdering Facility: [facility] Address:[address] [place] [id number] Performed By: #### 1987-08, ####[facility] [id number] [place] [id number] [place] Creatinine and Glomerular filtration rate.predicted panel (S/P/Bld)91 mL/min/1.73m???Normal>=60[facility] on above:Order Comment: Specimen Type: BLOOD SPECIMENOrdering Facility: [facility] Address:[address] [place], [place] [address]Result Comment: Estimated Glomerular Filtration Rate (eGFR) is calculated using the 2020 CKD-EPI cre atinine equation. This equation utilizes serum creatinine, sex, and age as parameters. The creatinine assay has traceable calibration to isotope dilution- mass spectrometry. Refer to KDIGO guidelines for clinical interpretation. In patients with unstable renal function, e.g. those with acute kidney injury, the eGFR may not accurately reflect actual GFR.Performed By: #### 1986-08, ####[facility] [id number] [place] [id number] [place] OF AMERICAGlucose [Mass/Vol]134 mg/dLHigh 74-99[facility] on above:Order Comment: Specimen Type: BLOOD SPECIMENOrdering Facility: [facility] Address:[address] [place], [place] [address]Result Comment: The [place] Diabetes Association (ADA) provides guidance for cutoff [...] Standards of Medical Care in Diabetes 2016, [place] Diabetes Association. Diabetes Care. 2016.39(Suppl 1).Performed By: #### ####[facility] LABCLIA [id number] [address] [address] [place] OF AMERICAPotassium [Moles/Vol]4.6 mmol/L Normal3.7-5.1CBl[facility] on above:Order Comment: Specimen Type: BLOOD SPECIMENOrdering Facility: [facility] Address:[address] [place], [place] [address]Performed By: #### ####[facility] LABIA [id number] [place] [id number] [place] AMERICAProtein [Mass/Vol]7.3 g/dLNormal6.3-8.0[facility] on above:Order Comment: Specimen Type: BLOOD SPECIMENOrdering Facility: [facility] Address:[address] [place], [place] [address]Performed By: #### ####[facility] [id number] [address] STATES OF [facility] LIMASodium [Moles/Vol]142 mmol/PTccqrs141-989RrsuffojcBrown Memorial Hospital on above:Order Comment: Specimen Type: BLOOD SPECIMENOrdering Facility: [facility] Address:[address] [place], [place] [address]Performed By: #### ####[facility] LABIA [id number] [place] [id number] [place] AMERICAUrea nitrogen [Mass/Vol]24 mg/dLHigh7-21[facility] on above:Order Comment: Specimen Type: BLOOD SPECIMENOrdering Facility: [facility] Address:[address] [place] [address] Performed By: #### 1987-5, 55293-4 ####[facility] LABCLIA [id number] [facility] [place] [address] [place] Eosinophils/100 WBC Auto (Bld)on 81-04-8405Ewolxgttcrq/100 WBC (Bld)Automated eosinophil %[facility] City HospitalErythrocyte distribution width Auto (RBC) [Ratio]on 47-30-9557Yzkplhixghw distribution width (RBC) [Ratio] Erythrocyte distribution width [Ratio] by Automated count11.5-15.0[facility] HospitalHematocrit Auto (Bld) [Volume fraction]on 07-02-2024 Hematocrit (Bld) [Volume fraction]Hematocrit [Volume Fraction] of Blood by Automated count36.0-46.0[facility] HospitalHemoglobin [Mass/volume] in Bloodon 39-34-0325Audsrgwgdl (Bld) [Mass/Vol]Hemoglobin [Mass/volume] in Blood11.5-15.5FLancaster Municipal HospitalLaboratory - Chemistry and Chemistry - challengeon 67-07-9609Gndeubr [Mass/Vol]4.2 g/dL 3.9-4.9[facility] HospitalALP [Catalytic activity/Vol]136 U/LHigh 34-123[facility] HospitalALT [Catalytic activity/Vol]11 U/L7-38 [facility] HospitalAST [Catalytic activity/Vol]15 U/L13-35 [facility] HospitalBilirubin [Mass/Vol]0.4 mg/dL0.2-1.3FLancaster Municipal HospitalCalcium [Mass/Vol]10.3 mg/dLHigh8.5-10.2FLancaster Municipal HospitalChloride [Moles/Vol]103 mmol/Z36-203LxpfaelfiTwin City HospitalCO2 [Moles/Vol]27 mmol/E85-09WmwqlvceoTwin City Hospital Creatinine [Mass/Vol]0.76 mg/dL0.58-0.96[facility] HospitalGlucose [Mass/Vol]134 mg/rPSzkv69-96KvrnpmvynTwin City HospitalComment on above: The [place] Diabetes Association (ADA) provides guidance for cutoff values for fasting glucose andrandom glucose. The ADA defines fasting as no [...] hyperglycemia or hyperglycemic crisis, random plasma glucose resultsgreater than or equal to 200 mg/dL meet the criteria for diagnosis of diabetes.Reference: Standardsof Medical Care in Diabetes 2016, [place] Diabetes Association. Diabetes Care. 2016.39(Suppl 1).Potassium [Moles/Vol]4.6 mmol/L3.7-5.1FTriHealthodium [Moles/Vol]142 mmol/S561-193DffrzgcywTwin City HospitalUrea nitrogen [Mass/Vol]24 mg/dLHigh7-21[facility] Laboratory - Hematology and Cell countson 26-46-7344Qsgweavhckg (Bld) [#/Vol] 0.10 10*3/uL<0.46[facility] HospitalImmature granulocytes (Bld) [#/Vol]0.03 10*3/uL<0.10[facility] granulocytes/100 WBC (Bld)0.4 %[facility] HospitalLeukocytes [#/volume] corrected for nucleated erythrocytes in Blood by Automated counon 09-36-7015YQA corrected for nucl RBC Auto (Bld) [#/Vol]Leukocytes [#/volume] corrected for nucleated erythrocytes in Blood by Automated coun3.70-11.00 [facility] HospitalLymphocytes Auto (Bld) [#/Vol]on 07-02-2024 Lymphocytes (Bld) [#/Vol]Lymphocytes [#/volume] in Blood by Automated count 1.00-4.00[facility] HospitalLymphocytes/100 WBC Auto (Bld)on 61-59-2825Agdckggxpfz/100 WBC (Bld)Lymphocytes/100 leukocytes in Blood by Automated countTwin City HospitalMCH Auto (RBC) [Entitic mass]on 91-85-1694OSU (RBC) [Entitic mass]MCH [Entitic mass] by Automated count26.0-34.0 [facility] HospitalMCHC Auto (RBC) [Mass/Vol]on 75-31-3818AZJT (RBC) [Mass/Vol]MCHC [Mass/volume] by Automated count30.5-36.0[facility] HospitalMCV Auto (RBC) [Entitic vol]on 70-46-9647MJO (RBC) [Entitic vol] MCV [Entitic volume] by Automated count80.0-100.0[facility] HospitalMonocytes Auto (Bld) [#/Vol]on 37-17-6159Qypssnjir (Bld) [#/Vol]Automated blood monocyte count<0.87[facility] HospitalMonocytes/100 WBC Auto (Bld)on 74-77-4165Jpdegeqih/100 WBC (Bld)Automated monocyte %[facility] HospitalNeutrophils Auto (Bld) [#/Vol]on 44-85-5318Knsutbxmlij (Bld) [#/Vol]Neutrophils [#/volume] in Blood by Automated count1.45-7.50[facility] HospitalNeutrophils/100 WBC Auto (Bld)on 07-02-2024 Neutrophils/100 WBC (Bld)Automated neutrophil %[facility] No Panel Informationon 18-31-9035Kcgy-(1,3)-D-Glucan QualitativeNegativeNegative [facility] HospitalBeta-(1,3)-D-Glucan Quantitative<31 pg/mL<60 [facility] HospitalC-Reactive Protein, Quantitative<0.3 mg/dL<0.9 [facility] HospitalEstimated GFR (CKD-EPI)91 mL/min/1.73m???>=60 [facility] HospitalComment on above:Estimated Glomerular Filtration Rate (eGFR) is calculated using the 2020 CKD-EPI creatinine equation. This equation utilizes serum creatinine, sex, and age as parameters. The creatinine assay has traceable calibration to isotope dilution-mass spectrometry. Refer to KDIGO guidelines for clinical interpretation. In patients with unstable renal function, e.g. those with acute kidney injury, the eGFRmay not accurately reflect actual GFR.Posaconazole Level3.0 ug/mL0.7-3.9[facility] HospitalComment on above:Ranges are based on trough draw at steady-state concentration.Therapeutic: >0.9 ug/mLProphylactic: >0.6 ug/mLToxic: >3.9 ug/mLThe therapeutic, prophylactic, and toxic ranges were based on the 2016 Infectious Disease Society of [place]'s (IDSA) Clinical Practice Guidelines for the Management of Aspergillosis and Candidiasis and consultation from [facility] Department of InfectiousDisease.Reference ranges and high/low indicator flags are provided as general guidelines only. The treating physician must determine appropriate target levels/dosing based on the specific clinical situation.This test was developed, and its performance characteristics determined by the [facility] Department of Pathology and Laboratory Medicine. It has not been cleared or approved by the FDA.The [facility] Department of Pathology and Laboratory Medicine is regulated under CLIA as qual ified to perform high-complexity testing. This test is used for clinical purposes. It should not beregarded as investigational or for research.Nucleated RBC Auto (Bld) [#/Vol]on 98-14-4989Jwwjusquc RBC (Bld) [#/Vol]Nucleated erythrocytes [#/volume] in Blood by Automated count<0.01T[facility] HospitalNucleated erythrocytes [Presence] in Blood by Automated counton 61-55-8808Wuudlxfld RBC Auto Ql (Bld)Nucleated erythrocytes [Presence] in Blood by Automated countTwin City HospitalPOSACONAZOLE, SERUMon 91-17-4994Mxzzcdfyjddq [Mass/Vol]3.0 ug/mLNormal0.7-3.9CBlanchard Valley [facility] on above:Order Comment: Specimen Type: BLOOD SPECIMENOrdering Facility: [facility] Address:[address] [place], [place] [address]Wxgqij Comment: Ranges are based on trough draw at steady-state concentration. Therapeutic: >0.9 ug/mL Prophylactic: >0.6 ug/mL Toxic: >3.9 ug/mL The therapeutic, prophylactic, and toxic ranges were based on the 2016 Infectious Disease Society of [place]'s (IDSA) Clinical Practice Guidelines for the Management of Aspergillosis and Candidiasis and consultation from [facility] Department of Infectious Disease. Reference ranges and high/low indicator flags are provided as general guidelines only. The treatingphysician must determine appropriate target levels/dosing based on the specific clinical situation. This test was developed, and its performance characteristics determined by the [facility] Department of Pathology and Laboratory Medicine. It has not been cleared or approved by the FDA. The [facility] Department of Pathology and Laboratory Medicine is regulated under CLIA as qualified to perform high-complexity testing. This test is used for clinical purposes. It should not be regarded as investigational or for research.Performed By: #### POSACN ####[facility] LABCLIA [id number] [place] [address] [place] AMERICAPlatelet mean volume Auto (Bld) [Entitic vol]on 37-32-6202Xxxgtfsz mean volume (Bld) [Entitic vol]Platelet mean volume [Entitic volume] in Blood by Automated count9.0-12.7FLancaster Municipal HospitalPlatelets Auto (Bld) [#/Vol]on 65-87-8348Zehdhltfo (Bld) [#/Vol] Platelets [#/volume] in Blood by Automated zbumv902-870PewfbphvaTwin City HospitalProtein [Mass/volume] in Serum or Plasmaon 67-97-8359Ctyzwpr [Mass/Vol]Protein [Mass/volume] in Serum or Plasma6.3-8.0[facility] HospitalRBC Auto (Bld) [#/Vol]on 26-23-9249QCY (Bld) [#/Vol]Erythrocytes [#/volume] in Blood by Automated count3.90-5.20[facility] Serum or plasma anion gap determinationon 48-79-3823Xhmie gap [Moles/Vol]Serum or plasma anion gap determination8-15[facility] City HospitalCT BRAIN WO IVCONon 68-63-5779LS BRAIN WO IVCON* * *Final Report* * * DATE OF EXAM: Jul 01 2024 2:16PM [facility] 0504 - CT BRAIN WO IVCON / PROCEDURE REASON: Other hydrocephalus (HCC) * * * * Physician Interpretation * * * * RESULT: EXAMINATION: CT BRAIN WO IVCON CLINICAL HISTORY: Hydrocephalus TECHNIQUE: Serial axial images without IV contrast were obtained from the vertex to the foramen magnum. MQ: CTBWO_3 CT Radiation dose: Integrated Dose-Length Product (DLP) for this visit = 768 mGy*cm CT Dose Reduction Employed: Automated exposure control (AEC) COMPARISON: Head CT 04/10/2024 RESULT: Localizer images: No additional findings. Post-operative change: Right parietal approach ventricular shunt catheter terminates in the frontal horn of the right lateral ventricle. Acute change: No evidence of an acute infarct or other acute parenchymal process. Hemorrhage: No evidence of acute intracranial hemorrhage. ECASS hemorrhagic transformation score: Not Applicable Mass Lesion / Mass Effect: There is no evidence of an intracranial mass or extraaxial fluid collection. No mass effect. Chronic change: Chronic hypoattenuation in the right parietal lobe white matter surrounding the shunt catheter which may reflect edema and/or gliosis. Multifocal patchy areas of hypoattenuation in the right greater than left cerebral hemispheric white matter compatible with sequelae of nonspecific remote insults. Intracranial arterial calcifications are present. Parenchyma: There is no significant volume loss. Ventricles: Compared to head CT performed 04/10/2024, there has been slight interval increase in size of the ventricular system, at which time the ventricles were noted to also have undergone interval enlargement. Paranasal sinuses and skull base: Polypoid mucosal thickening and/or inspissated fluid in the right sphenoid sinus. The skull base and imaged soft tissues are unremarkable. IMPRESSION: Compared to head CT performed 04/10/2024, there has been slight interval increase in size of the ventricular system, at which time the ventricles were noted to also have undergone interval enlargement. These findings could reflect shunt malfunction. Right parietal approach ventricular shunt catheter terminates in the frontal horn of the right lateral ventricle. Transcribe Date/Time: Jul 01 2024 3:16P Dictated by: REED MTAHEW MD This examination was interpreted and the report reviewed and electronically signed by: REED MATHEW MD on Jul 01 2024 3:20PM EST Thank you for allowing us to participate in the care of your patient. Should there be any questions regarding this interpretation, please call [phone]. If you are unable to reach us at the number above, please feel free to contact [facility] eRadiology at [phone]. [id number] Clinic Children's Hospital for Rehabilitation Head WO contraston 98-82-4996SQOQIGNFFG: Compared to head CT performed 04/10/2024, there has been slight interval increase in size of the ventricular system, at which time the ventricles were noted to also have undergone interval enlargement. These findings could reflect shunt malfunction. Right parietal approach ventricular shunt catheter terminates in the frontal horn of the right lateral ventricle. Transcribe Date/Time: Jul 01 2024 3:16P Dictated by: REED MATHEW MD This examination was interpreted and the report reviewed and electronically signed by: REED MATHEW MD on Jul 01 2024 3:20PM EST Thank you for allowing us to participate in the care of your patient. Should there be any questions regarding this interpretation, please call [phone]. If you are unable to reach us at the number above, please feel free to contact [facility] at [phone].DIVISION OF RADIOLOGY* * *Final Report* * * DATE OF EXAM: Jul 01 2024 2:16PM [facility] 0504 - CT BRAIN WO IVCON / PROCEDURE REASON: Other hydrocephalus (HCC) * * * * Physician Interpretation * * * * RESULT: EXAMINATION: CT BRAIN WO IVCON CLINICAL HISTORY: Hydrocephalus TECHNIQUE: Serial axial images without IV contrast were obtained from the vertex to the foramen magnum. MQ: CTBWO_3 CT Radiation dose: Integrated Dose-Length Product (DLP) for this visit = 768 mGy*cm CT Dose Reduction Employed: Automated exposure control (AEC) COMPARISON: Head CT 04/10/2024 RESULT: Localizer images: No additional findings. Post-operative change: Right parietal approach ventricular shunt catheter terminates in the frontal horn of the right lateral ventricle. Acute change: No evidence of an acute infarct or other acute parenchymal process. Hemorrhage: No evidence of acute intracranial hemorrhage. ECASS hemorrhagic transformation score: Not Applicable Mass Lesion / Mass Effect: There is no evidence of an intracranial mass or extraaxial fluid collection. No mass effect. Chronic change: Chronic hypoattenuation in the right parietal lobe white matter surrounding the shunt catheter which may reflect edema and/or gliosis. Multifocal patchy areas of hypoattenuation in the right greater than left cerebral hemispheric white matter compatible with sequelae of nonspecific remote insults. Intracranial arterial calcifications are present. Parenchyma: There is no significant volume loss. Ventricles: Compared to head CT performed 04/10/2024, there has been slight interval increase in size of the ventricular system, at which time the ventricles were noted to also have undergone interval enlargement. Paranasal sinuses and skull base: Polypoid mucosal thickening and/or inspissated fluid in the right sphenoid sinus. The skull base and imaged soft tissues are unremarkable. DIVISION OF RADIOLOGYProvider, [facility] [place] - 07/01/2024 * * *Final Report* * * DATE OF EXAM: Jul 01 2024 2:16PM [facility] 0504 - CT BRAIN WO IVCON / PROCEDURE REASON: Other hydrocephalus (HCC) * * * * Physician Interpretation * * * * RESULT: EXAMINATION: CT BRAIN WO IVCON CLINICAL HISTORY: Hydrocephalus TECHNIQUE: Serial axial images without IV contrast were obtained from the vertex to the foramen magnum. MQ: CTBWO_3 CT Radiation dose: Integrated Dose-Length Product (DLP) for this visit = 768 mGy*cm CT Dose Reduction Employed: Automated exposure control (AEC) COMPARISON: Head CT 04/10/2024 RESULT: Localizer images: No additional findings. Post-operative change: Right parietal approach ventricular shunt catheter terminates in the frontal horn of the right lateral ventricle. Acute change: No evidence of an acute infarct or other acute parenchymal process. Hemorrhage: No evidence of acute intracranial hemorrhage. ECASS hemorrhagic transformation score: Not Applicable Mass Lesion / Mass Effect: There is no evidence of an intracranial mass or extraaxial fluid collection. No mass effect. Chronic change: Chronic hypoattenuation in the right parietal lobe white matter surrounding the shunt catheter which may reflect edema and/or gliosis. Multifocal patchy areas of hypoattenuation in the right greater than left cerebral hemispheric white matter compatible with sequelae of nonspecific remote insults. Intracranial arterial calcifications are present. Parenchyma: There is no significant volume loss. Ventricles: Compared to head CT performed 04/10/2024, there has been slight interval increase in size of the ventricular system, at which time the ventricles were noted to also have undergone interval enlargement. Paranasal sinuses and skull base: Polypoid mucosal thickening and/or inspissated fluid in the right sphenoid sinus. The skull base and imaged soft tissues are unremarkable. IMPRESSION IMPRESSION: Compared to head CT performed 04/10/2024, there has been slight interval increase in size of the ventricular system, at which time the ventricles were noted to also have undergone interval enlargement. These findings could reflect shunt malfunction. Right parietal approach ventricular shunt catheter terminates in the frontal horn of the right lateral ventricle. Transcribe Date/Time: Jul 01 2024 3:16P Dictated by: REED MATHEW MD This examination was interpreted and the report reviewed and electronically signed by: REED MATHEW MD on Jul 01 2024 3:20PM EST Thank you for allowing us to participate in the care of your patient. Should there be any questions regarding this interpretation, please call [phone]. If you are unable to reach us at the number above, please feel free to contact [facility] at [phone]. [facility] Study observation (narrative)[facility] Head WO contrastOrdered By: [facility] Provider on 67-67-7247Bxjibciws ClinicBasophils Auto (Bld) [#/Vol]on 96-75-4609Tgarmqkgn (Bld) [#/Vol]Automated basophil count0.0-0.1 [facility] HospitalBasophils/100 WBC Auto (Bld)on 06-20-2024 Basophils/100 WBC (Bld)Automated basophil %0.2-2.0[facility] HospitalEosinophils/100 WBC Auto (Bld)on 42-24-9881Tfaprjkqdfp/100 WBC (Bld) Automated eosinophil %0.9-7.0[facility] HospitalErythrocyte distribution width Auto (RBC) [Ratio]on 39-37-2328Xzkqaoyupxg distribution width (RBC) [Ratio]Erythrocyte distribution width [Ratio] by Automated count11.0-15.0 [facility] HospitalEstimated glomerular filtration rate (GFR) non- Americanon 01-64-7119CLQ/1.73 sq M.predicted among non-blacks MDRD (S/P/Bld) [Vol rate/Area]Estimated glomerular filtration rate (GFR) non->=60 mL/min/1.73m 2FLancaster Municipal HospitalHematocrit Auto (Bld) [Volume fraction]on 42-59-1691Pccuwbgrvr (Bld) [Volume fraction]Hematocrit [Volume Fraction] of Blood by Automated count36.0-48.0[facility] HospitalHemoglobin [Mass/volume] in Bloodon 66-91-1131Pinfmiiqic (Bld) [Mass/Vol] Hemoglobin [Mass/volume] in Blood12.0-16.0[facility] Laboratory - Chemistry and Chemistry - challengeon 39-92-6908Mqmvpjh [Mass/Vol] 9.4 mg/dL8.5-10.1FLancaster Municipal HospitalChloride [Moles/Vol]107 mmol/L 98-107T[facility] HospitalCO2 [Moles/Vol]28.0 mmol/L21.0-32.0 [facility] HospitalCreatinine [Mass/Vol]0.75 mg/dL0.55-1.02 [facility] HospitalGFR/1.73 sq M.predicted MDRD (S/P/Bld) [Vol rate/Area]mL/min/{1.73_m2}>=60 mL/min/1.73m 2FLancaster Municipal Hospital Glucose [Mass/Vol]89 mg/kY40-253IwbkslpmrTwin City HospitalPotassium [Moles/Vol]3.6 mmol/L3.5-5.1FTriHealthodium [Moles/Vol] 143 mmol/D940-108XexwuaiwhTwin City HospitalUrea nitrogen [Mass/Vol]32.0 mg/dLHigh7.0-18.0[facility] HospitalUrea nitrogen/Creatinine [Mass ratio]42.7 mg/mgTwin City HospitalLaboratory - Hematology and Cell countson 85-23-1422Awcmbfhm granulocytes/100 WBC (Bld)0.3 %0.0-0.5FLancaster Municipal HospitalLeukocytes [#/volume] corrected for nucleated erythrocytes in Blood by Automated counon 18-08-7024KUV corrected for nucl RBC Auto (Bld) [#/Vol]Leukocytes [#/volume] corrected for nucleated erythrocytes in Blood by Automated coun4.0-11.0[facility] HospitalLymphocytes Auto (Bld) [#/Vol]on 19-25-6589Ncnyvdvgeyu (Bld) [#/Vol]Lymphocytes [#/volume] in Blood by Automated countLow1.2-3.8[facility] Lymphocytes/100 WBC Auto (Bld)on 27-66-1514Kzbzwhfctsq/100 WBC (Bld) Lymphocytes/100 leukocytes in Blood by Automated mleoyMdk28.5-60.0[facility] CenterH Auto (RBC) [Entitic mass]on 73-58-0823PWR (RBC) [Entitic mass]MCH [Entitic mass] by Automated count26.7-34.0[facility] HospitalMCHC Auto (RBC) [Mass/Vol]on 25-78-0673ARPT (RBC) [Mass/Vol]MCHC [Mass/volume] by Automated count29.9-35.2FLancaster Municipal HospitalMCV Auto (RBC) [Entitic vol]on 79-80-0187HAM (RBC) [Entitic vol]MCV [Entitic volume] by Automated count81.0-99.0[facility] HospitalMonocytes Auto (Bld) [#/Vol]on 74-74-8463Vqmyjdscs (Bld) [#/Vol]Automated blood monocyte count0.3-0.8 [facility] HospitalMonocytes/100 WBC Auto (Bld)on 06-20-2024 Monocytes/100 WBC (Bld)Automated monocyte %1.7-12.0[facility] HospitalNeutrophils Auto (Bld) [#/Vol]on 55-02-9967Eyxxbistmhg (Bld) [#/Vol] Neutrophils [#/volume] in Blood by Automated count1.4-6.5FLancaster Municipal HospitalNeutrophils/100 WBC Auto (Bld)on 94-24-4603Ngumqbruati/100 WBC (Bld)Automated neutrophil %43.0-75.0[facility] HospitalNo Panel Informationon 39-21-2135Zktnwqsjxvw difficile (PCR)(LAB)NegativeTwin City HospitalEosinophils # (Auto)0.1 10 3/uL0.0-0.7FLancaster Municipal HospitalImmature Granulocyte # (Auto)0.02 10 3/uL0.00-0.03[facility] HospitalPlatelet mean volume Auto (Bld) [Entitic vol]on 19-10-1391Xhxvknzx mean volume (Bld) [Entitic vol]Platelet mean volume [Entitic volume] in Blood by Automated countLow9.5-13.5FLancaster Municipal Hospital Platelets Auto (Bld) [#/Vol]on 19-27-8067Kbsbbpuve (Bld) [#/Vol]Platelets [#/volume] in Blood by Automated ivzez083-529IcfqublysTwin City Hospital RBC Auto (Bld) [#/Vol]on 30-08-7155XRJ (Bld) [#/Vol]Erythrocytes [#/volume] in Blood by Automated countLow4.20-5.40Peoples Hospitalerum or plasma anion gap determinationon 47-35-9918Pdldc gap [Moles/Vol]Serum or plasma anion gap determinationTwin City HospitalUS arterial pvr rest LE on 89-19-4591MH arterial pvr rest [facility] [place] [address] Ultrasound Report Signed Patient: Chikis Tobar MR#: [id number] : 1965 Acct:[id number] Age/Sex: 58 / F ADM Date: 05/27/24 Loc: Room: Type: [facility] Attending Dr: Juliette Berumen DO Ordering Provider: Juliette Berumen DO Date of Service: 05/27/24 US/US arterial pvr rest LE: L97.521 - Non-pressure chronic ulcer of other part of select specialty hospital... Copies to: Juliette Berumen DO Bilateral lower extremity segmental arterial Doppler examination Indication for study: Nonhealing left leg wound PROCEDURE: The right arm blood pressure is 138 in the left arm blood pressure is 135 mmHg. At all segments examined in both lower extremities the pressures are incompressible. The right first toe pressure is 72 mmHg giving a toe brachial index of 0.52. Left first toe pressure is 75 mmHg giving a toe brachial index of 0.54. Waveforms by plethysmography are mildly blunted bilaterally. US/US arterial pvr rest LE IMPRESSION: Quantitative information from this examination is limited as the pressures were incompressible throughout both lower extremities. The toe brachial indices are diminished bilaterally suggesting at least mild to moderate peripheral arterial occlusive disease at rest. Impression dictated by: Chip Hagen M.D.05/27/2024 4:11 PM Dictation Location: [facility] Tech: Chelsie Serra Transcribed By: YAMILET 05/27/24 1611 Dictated By: Chip Hagen MD 05/27/24 1608 Signed By: 05/27/24 1611YiselECU Health [facility] Hospital Physician GroupUS venous duplex LE BIon [id number] venous duplex [place] [address] Ultrasound Report Signed Patient: Chikis Tobar MR#: [id number] : 1965 Acct:[id number] Age/Sex: 58 / F ADM Date: 05/27/24 Loc: Room: Type: [facility] Attending Dr: Juliette Berumen DO Ordering Provider: Juliette Berumen DO Date of Service: 05/27/24 US/US venous duplex LE BI: M79.89 - Other specified soft tissue disorders Copies to: Juliette Berumen DO BILATERAL LOWER EXTREMITY VENOUS DUPLEX INDICATION: Swollen painful legs PROCEDURE: Color-flow duplex scanning is used to interrogate the deep venous system of the right and left lower extremities. The common femoral vein, femoral vein and popliteal vein show good compressibility with normal proximal and distal augmentation. The posterior tibial veins are compressible and the peroneal veins are poorly visualized. US/US venous duplex LE BI IMPRESSION: NO EVIDENCE FOR DEEP VEIN THROMBOSIS OR PROXIMAL SUPERFICIAL THROMBOPHLEBITIS IN THE RIGHT OR LEFT LOWER EXTREMITY. Impression dictated by: Chip Hagen M.D.05/27/2024 4:08 PM Dictation Location: [facility]04 Tech: Nikky Nova Transcribed By: YAMILET 05/27/24 1608 Dictated By: Chip Hagen MD 05/27/24 1607 Signed By: 05/27/24 1608YiselECU Health [facility] Physician X-ray reportOrdered By: Chip Flores on [id number] reportSELECT MEDICAL [facility] Main [address] [address] XRay Report Signed Patient: Chikis Tobar MR#: [id number] : 1965 Acct:[id number] Age/Sex: 58 / F ADM Date: 5 Loc: Room: Type: REG CLI Attending Dr: Juliette Berumen DO Copies to: Juliette Berumen DO~ Ordering Provider: Juliette Berumen DO Date of Service: 05/27/24 XR/XR foot LT min 3V*: M79.672 - Pain in left foot 3 views left foot plain film COMPARISON:None HISTORY: Open wound involving the left heel. Redness and swelling ACUTE FINDINGS: None DEGENERATIVE CHANGE: Mild to moderate SOFT TISSUE FINDINGS: Diffuse soft tissue swelling. No subcutaneous air. No radiodense foreign body. JOINT EFFUSION: None POSTOP CHANGES: Tibial fixation hardware BONE MINERALIZATION: Diffuse osteopenia XR/XR foot LT min 3V* IMPRESSION: Degenerative changes and diffuse osteopenia. Diffuse soft tissue swelling. No acute bony findings. Impression dictated by: Chip Flores M.D.05/27/2024 3:09 PM Dictation Location: [facility] Transcribed By: [facility] 05/27/24 1509 Dictated By: Chip Flores DO 05/27/24 1506 Signed By: 05/27/24 1509 [facility] HospitalXR foot LT min 3V*on [id number] foot LT min 3V*[facility] Main [place] [address] [place] [address] XRay Report Signed Patient: Chikis Tobar MR#: [id number] : 1965 Acct:[id number] Age/Sex: 58 / F ADM Date: 05/27/24 Loc: Room: Type: REG CLI Attending Dr: Juliette Berumen DO Copies to: Juliette Berumen DO Ordering Provider: Juliette Berumen DO Date of Service: 05/27/24 XR/XR foot LT min 3V*: M79.672 - Pain in left foot 3 views left foot plain film COMPARISON:None HISTORY: Open wound involving the left heel. Redness and swelling ACUTE FINDINGS: None DEGENERATIVE CHANGE: Mild to moderate SOFT TISSUE FINDINGS: Diffuse soft tissue swelling. No subcutaneous air. No radiodense foreign body. JOINT EFFUSION: None POSTOP CHANGES: Tibial fixation hardware BONE MINERALIZATION: Diffuse osteopenia XR/XR foot LT min 3V* IMPRESSION: Degenerative changes and diffuse osteopenia. Diffuse soft tissue swelling. No acute bony findings. Impression dictated by: Chip Flores M.D.05/27/2024 3:09 PM Dictation Location: [place] [address] Transcribed By: [facility] 05/27/24 1509 Dictated By: Chip Flores DO 05/27/24 1506 Signed By: 05/27/24 1509[facility] Physician GroupAerobic Cultureon 05-06-2024 Aerobic CultureORGANISM: Methicillin Resis Staph Aureus (O:MRSA) Quantity of Growth Light Growth No Anaerobes Isolated 3 Days Gram Stain Result No Bacteria Seen No White Blood Cells Seen Aerobic DANA Charge (PCMIC38) SUSCEPTIBILITY ORGANISM: O:MRSA ANTIBIOTIC INTERPRETATION DANA Azithromycin R >4 Ceftaroline S <0.5 Clindamycin R >4 Daptomycin S 1 Linezolid S 2 Oxacillin R >2 Penicillin R 0.06 Tetracycline S <4 Trimethoprim/Sulfamethoxazole S <0.5 Vancomycin S 2 S = SUSCEPTIBLE I = INTERMEDIATE R = RESISTANT BLANK = DATA NOT AVAILABLE, OR DRUG NOT ADVISABLE OR TESTED R* = RESISTANCE DUE TO EXTENDED SPECTRUM BETA-LACTAMASES ESBL = EXTENDED SPECTRUM BETA-LACTAMASE TFG = THYMIDINE-DEPENDENT STRAIN JADE = BETA-LACTAMASE POSITIVE IB = INDUCIBLE BETA-LACTAMASE. APPEARS IN PLACE OF 'S' WITH SPECIES KNOWN TO POSSESS INDUCIBLE BETA-LACTAMASES. POTENTIALLY THEY MAY BECOME RESISTANT TO ALL B-LACTAM DRUGS. PERFORMED BY: [place] [address] PATHOLOGIST PROCESSING SUPERVISOR LANETTE KATZ M.D.[facility] Physician GroupComment on above: Performed By: #### AERC #### [place] [address] USAAnaerobic cultureOrdered By: Sharan Dominguez on 05-06-2024 Bacteria identified Anaer cx Nom (Unsp spec)Anaerobic cultureTwin City HospitalBacteria identified Anaer cx Nom (Unsp spec)Anaerobic culture [facility] HospitalBacteria identified Aer cx Nom (Unsp spec) Ordered By: Sharan Dominguez on [id number] CultureAbnoSelect Medical Cleveland Clinic Rehabilitation Hospital, Edwin ShawAerobic CultureAbOhio State University Wexner Medical CenterGram stain microscopyOrdered By: Sharan Dominguez on [id number] observation Gram stain Nom (Unsp spec)Gram stain microscopyTwin City Hospital Microscopic observation Gram stain Nom (Unsp spec)Gram stain [facility] Memorial HospitalCNOVon [id number] Visit [facility] ([id number]) 1965 F Date Time Provider Department 04/22/24 1:45 PM NOEL DANIELS [facility] During your visit today, we recorded the following information about you: Temperature Pulse Blood pressure 98.9 degrees 75/minute 123/71 Noel Daniels MD 04/22/2024 2:35 PM Addendum You have received Anterior Obturator Nerve Block with Phenol today for lower extremity spasticity. Monitor the skin around the site of injections for any changes like redness, swelling, pain for at least a couple of days. The skin should be examined by a health wound care physician if changes persist or infection is suspected. If you notice any allergic reaction or problems swallowing, speaking, breathing seek immediate medical attention. Neurolysis/Nerve Block with phenol: - B/L Anterior Obturator nerve Additional changes/recommendations - Continue daily range of motion and stretching exercises - Continue working with OT and PT - Continue timely pressure relief and change in position Additional changes/recommendations - Continue daily range of motion and stretching exercises - Continue working with OT and PT - Continue timely pressure relief and change in position Medications - Continue Baclofen. We'll clarify the dosing/script issue with pharmacy. Please contact our office via [employer] or by phone at [phone] with any questions or concerns. If your health insurance changes before the next injections, please contact our office at [phone] as soon as possible so we can submit a new pre-authorization if needed. Please note that we may not be able to perform the injections if your insurance changes and the treatment is not pre-authorized. Noel Daniels MD 04/22/2024 4:33 PM Signed PROCEDURE NOTE: Obturator nerve Block with Phenol (aqueous 6%) for spasticity management / Phenol Neurolysis Patient accompanied by : Friend Current complaints: Spasticity and spasms Brief HPI: Chikis Tobar is a 58 year old right-handed female with past medical history of T1DM cb/ DKA, urothelial carcinoma of the bladder s/p radical cystectomy and ileal conduit c/b SBO (Dec 2021), HTN, chronic sinusitis, asthma, fungal meningitis, myelitis and hydrocephalus status post 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 placement June 2022, externalization on 06/25/2023, removal 07/10/2023 and reimplantation on 10/15/2023. Patient experienced impaired mobility and functions after removal of shunt and noted minimal improvement in lower extremity function post shunt reimplantation. She was evaluated in [facility] spasticity clinic initially on 12/04/2023 for paraplegia and associated severe spasticity and flexor spasms. She was discharged home from [facility] rehab facility on 02/15/2024. She received initial botulinum toxin injection and phenol nerve block on 01/11/2024. She reports to clinic today for subsequent phenol injections. History since last visit: Received Botox injection last week with dose increment to 400 units. Feels that she still has more spasms. She could not refill her baclofen due to duplicate prescription. She feels that initial Botox + combination worked well and would like to continue the same for subsequent visits. -Hospitalization/ER visit: No -New weakness or numbness: No -Fever or flu like symptoms : No -Ongoing antibiotics: No -Other: - -Anticoagulation/antiplatelet medications: Aspirin -Denies any concerns with bowel and bladder function Spasticity treatment: -Home exercise routine: - -PT/OT: Planning to start physical -Medications: Baclofen 10 mg twice daily. Prefers to be on prior dosing which was 10 mg-10 mg - 20 mg. -Other/orthosis: No Patient goals: -reduce lower extremity spasms -Reduce discomfort/pain associated with spasms -Improve participation in therapies -Improve positioning in bed, wheelchair -Improve mobility/transfers and ambulation Pain related to the purpose of the visit: No 0 on a scale of 0 to 10 Patient Entered Data PROMIS No data to display Spasticity NRS 04/15/2024 -- Spasm Scale 2=Infrequent full spasms occuring less than once per hour Spasm Scale - Trendable Number 2 Spasm Scale No data to display Global Impression of Change No data to display Nutritional status: appetite , weight , swallowing - stable Driving issues: NA Safety concerns regarding living situations and safety at home: NA At risk for falling: Yes . No falls recently Examination: BP 123/71 (BP Site: Right Arm, BP Position: Sitting, BP Cuff Size: Regular Adult) Pulse 75 Temp 37.2 ?C (98.9 ?F) (Temporal) General: The patient is a well-nourished, well groomed who appears stated age. HEAD: Normocephalic EYE: -Appearance: Sclera nonicteric, PERRLA ENT: no rhinorrhea, MMM Lung: breathing unlabored in room air Skin: skin turgor is normal. Healed midline incision over anterior abdome (more content not included)...NormalHarrison Community HospitalOVon [id number] Office Visit ([facility]) CHIKIS TOBAR ([id number]) 1965 F Date Time Provider Department 04/15/24 11:45 AM [facility] During your visit today, we recorded the following information about you: Temperature Pulse Blood pressure 99.5 degrees 75/minute 135/72 Noel Daniels MD 04/15/2024 1:14 PM Signed BOTULINUM TOXIN THERAPY Patient accompanied by : Self Current complaints: Spasticity and spasms Brief HPI: Chikis Juárez Tobar is a 58 year old right-handed female with past medical history of T1DM cb/ DKA, urothelial carcinoma of the bladder s/p radical cystectomy and ileal conduit c/b SBO (Dec 2021), HTN, chronic sinusitis, asthma, fungal meningitis, myelitis and hydrocephalus status post 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 placement June 2022, externalization on 06/25/2023, removal 07/10/2023 and reimplantation on 10/15/2023. Patient experienced impaired mobility and functions after removal of shunt and noted minimal improvement in lower extremity function post shunt reimplantation. She was evaluated in [facility] spasticity clinic initially on 12/04/2023 for paraplegia and associated severe spasticity and flexor spasms. She was discharged home from [facility] on 02/15/2024. She received initial botulinum toxin injection on 01/11/2024 and reports to clinic today for next set of botulinum toxin A injections. History since last visit: Reports good benefit with Botox. Did not experience any spasms while effect lasted. Improved lower extremity control with Botox injection. Now she has increased spasms and stiffness in both lower extremity specially while doing activities or working with therapies. Discharge from [facility] facility. Worked with home therapies. Feels that she regressed with home therapies. She is hoping to regain her functions back with outpatient therapies. She lives on her own in a ranch type house with all arrangement on the same level. Her cousin and nephew available for assistance as needed. She does transfers using a slide board at home. Her cousin drove her today. She has got a new handicap van from her neighbors. -Hospitalization/ER visit: No -New weakness or numbness: No -Fever or flu like symptoms : No -Ongoing antibiotics: No -Other: Improving left heel wound, follows up with local wound clinic Plan to start physical therapy for lymphedema -Anticoagulation/antiplatelet medications: Aspirin -Allergy to cow milk protein: No Spasticity treatment: -Home exercise routine: - -PT/OT: planning to start next year -Medications: Baclofen 10 mg-10 mg, tolerating well, denies any side effects. Per patient her PCP ordered twice daily dosage for her. As per previous report patient was taking 10 mg-10 mg - 20 mg of baclofen. He is interested in dose adjustment and feels that she may benefit with additional dose -Botulinum toxin therapy: Initial visit -Other/orthosis: No -Denies any concerns with bowel and bladder function Patient goals: -reduce lower extremity spasms -achieved (reduction in MACHO spasm frequency scale to 5 from 6 today, reports resolution of spasms for 10 weeks after Botox) -Reduce discomfort/pain associated with spasms -Improve participation in therapies -Improve positioning in bed, wheelchair -Improve mobility/transfers and ambulation BT therapy effective? Yes - stiffness, spasms/cramps, active function and ease of care Duration of benefit: 10 weeks Side effects: No Spasm scale: 2=Infrequent full spasms occuring less than once per hour (Spasm severity 3) Pain related to the purpose of the visit: No 0 on a scale of 0 to 10 Patient Entered Data PROMGalil Medical No data to display Spasticity NRS No data to display Spasm Scale No data to display Global Impression of Change No data to display Nutritional status: appetite , weight , swallowing - stable Driving issues: NA Safety concerns regarding living situations and safety at home: NA At risk for falling: Yes . No falls recently Examination: BP 135/72 (BP Site: Right Arm, BP Position: Sitting, BP Cuff Size: Large Adult) Pulse 75 Temp 37.5 ?C (99.5 ?F) (Temporal) General: The patient is a well-nourished, well groomed who appears stated age. HEAD: Normocephalic EYE: -Appearance: Sclera nonicteric, PERRLA ENT: no rhinorrhea, MMM Lung: breathing unlabored in room air Skin: skin turgor is normal. Healed midline incision over anterior abdomen present. GI/: Insulin pump present over left anterior abdomen present Ileal conduit with external collecting bag noted on right side draining clear urine. Extremity: edema noted in both lower extremities. Neuro: The patient was alert and oriented Articulated speech with intact comprehension Strength Right Left Shoulder abduction 4 5 Elbow flexion 5 5 Elbow extension 5 5 Wrist extension 5 5 Hip flexion 2+ 3+ Knee flexion 3+ 3+ (more content not included)...NormalMercy Health Allen HospitalPOSACONAZOLE, SERUMOrdered By: Kierra Evans on 04-11-2024 Interpretation and review of laboratory resultsNormalCleveland Clinic Posaconazole [Mass/Vol]2.8 ug/mL0.7 - 3.9 ug/mLCleveland ClinicComment on above: Ranges are based on trough draw at steady-state concentration. Therapeutic: >0.9 ug/mL Prophylactic: >0.6 ug/mL Toxic: >3.9 ug/mL The therapeutic, prophylactic, and toxic ranges were based on the 2016 Infectious Disease Society of [place]'s (IDSA) Clinical Practice Guidelines for the Management of Aspergillosis and Candidiasis and consultation from [facility]'s Department of Infectious Disease. Reference ranges and high/low indicator flags are provided as general guidelines only. The treatingphysician must determine appropriate target levels/dosing based on the specific clinical situation. This test was developed, and its performance characteristics determined by the [facility] Department of Pathology and Laboratory Medicine. It has not been cleared or approved by the FDA. The [facility] Department of Pathology and Laboratory Medicine is regulated under CLIA as qualified to perform high-complexity testing. This test is used for clinical purposes. It should not be regarded as investigational or for research. [facility] SystemBasophils Auto (Bld) [#/Vol]on [id number] (Bld) [#/Vol] Automated basophil count<0.11T[facility] City HospitalBasophils/100 WBC Auto (Bld)on 05-08-3887Hjzikdkox/100 WBC (Bld)Automated basophil %Twin City HospitalBlood manual differential comment interpretation narrativeon [id number] differential comment Reymundo (Bld) [Interp]Blood manual differential comment interpretation [facility] C-REACTIVE PROTEINon [id number] [Mass/Vol]mg/dLNINF - 0.9 mg/dLThe Metrohealth SystemCB W Auto Differential panel (Bld)on 06-72-3779Sigcihnez (Bld) [#/Vol] 0.04 10*3/uLNINFThe [facility]health SystemBasophils/100 WBC (Bld)0.8 %[facility] Differential cell count method Nom (Bld)AutoCleveland ClinicEosinophils (Bld) [#/Vol]0.11 10*3/uLNINFThe [facility] SystemEosinophils/100 WBC (Bld)2.2 %[facility] SystemErythrocyte distribution width (RBC) [Ratio]14.0 %11.5 - 15.0 %[facility] SystemHematocrit (Bld) [Volume fraction]37.4 %36.0 - 46.0 %[facility] Hemoglobin (Bld) [Mass/Vol]11.9 g/dL11.5 - 15.5 g/dLThe [facility]health SystemImmature granulocytes (Bld) [#/Vol]NINFCMercy Health St. Charles HospitalImmature granulocytes/100 WBC (Bld)0.4 %[facility] SystemLymphocytes (Bld) [#/Vol]1.03 10*3/uLThe [facility] Lymphocytes/100 WBC (Bld)20.8 %[facility] HospitalH (RBC) [Entitic mass]29.8 pg 26.0 - 34.0 pgCUniversity Hospitals TriPoint Medical CenterHC (RBC) [Mass/Vol]31.8 g/dL30.5 - 36.0 g/dL [facility] Flower HospitalV (RBC) [Entitic vol]93.5 fL80.0 - 100.[address] [facility] Hospital Monocytes (Bld) [#/Vol]0.46 10*3/uLNINFThe [facility] SystemMonocytes/100 WBC (Bld) 9.3 %[facility] SystemNeutrophils (Bld) [#/Vol]3.30 10*3/uLThe [facility] System Neutrophils/100 WBC (Bld)66.5 %[facility] SystemNucleated RBC (Bld) [#/Vol]NINF [facility] SystemNucleated RBC/100 WBC (Bld) [Ratio]0.0 %/100 WBCThe [facility]health System Platelet mean volume (Bld) [Entitic vol]9.3 fL9.0 - 12.[address] Charles Hospital Platelets (Bld) [#/Vol]338 10*3/uLThe Metrohealth SystemRBC (Bld) [#/Vol]4.00 10*6/uL 3.90 - 5.20 m/[facility] Doctors HospitalWBC (Bld) [#/Vol]4.96 10*3/uLMercy Health Allen Hospital ClinicBasophils (Bld) [#/Vol]0.04 10*3/uLNormal<0.11CFlower HospitalComment on above:Order Comment: Specimen Type: BLOOD SPECIMENOrdering Facility: [facility] Address:[address] [place], [place] [address]Performed By: #### [id number] ####[facility] LABCLIA [id number] [place] [address] [place] Basophils/100 WBC (Bld)0.8 %NormalBrown Memorial Hospital on above: Order Comment: Specimen Type: BLOOD SPECIMENOrdering Facility: [facility] Address:[address] [place], [place] [address]Performed By: #### [id number]- 8 ####[facility] LABCLIA [id number] [place] [address] [place] AMERICADifferential cell count method Nom (Bld)AutoNormalClevelUniversity Hospitals Conneaut Medical Center on above:Order Comment: Specimen Type: BLOOD SPECIMENOrdering Facility: [facility] Address:[address] [place], [place] [address]Performed By: #### 75157-4 ####[facility] LABCLIA [id number] [place] [address] [place] AMERICAEosinophils (Bld) [#/Vol]0.11 10*3/uLNormal<0.46[facility] on above:Order Comment: Specimen Type: BLOOD SPECIMENOrdering Facility: [facility] Address:[address] [place], [place] [address]Performed By: #### 83763-0 ####[facility] LABCLIA [id number] [place] [address] [place] AMERICAEosinophils/100 WBC (Bld)2.2 % NormalBrown Memorial Hospital on above:Order Comment: Specimen Type: BLOOD SPECIMENOrdering Facility: [facility] Address:[address] [place], [place] [address]Performed By: #### [id number] ####[facility] LABCLIA [id number] [place] [address] [place] AMERICAErythrocyte distribution width (RBC) [Ratio]14.0 %Normal 11.5-15.0[facility] on above:Order Comment: Specimen Type: BLOOD SPECIMENOrdering Facility: [facility] Address:[address] [place], [place] [address]Performed By: #### 66976-6 ####[facility] LABIA [id number] [place] [address] [place] AMERICAHematocrit (Bld) [Volume fraction]37.4 %Upzhga29.0-46.0 Mer[facility] Health Allen HospitalComment on above:Order Comment: Specimen Type: BLOOD SPECIMENOrdering Facility: [facility] Address:[address] [place], [place] [address]Performed By: #### 71626-2 ####[facility] LABIA [id number] [place] [address] [place] AMERICAHemoglobin (Bld) [Mass/Vol]11.9 g/rGDkbwip66.5-15.5CBlanchard Valley [facility] on above:Order Comment: Specimen Type: BLOOD SPECIMENOrdering Facility: [facility] Address:[address] [place], [place] [address]Performed By: #### 95685-9 ####[facility] LABIA [id number] [place] [address] [place] Immature granulocytes (Bld) [#/Vol]10*3/uLNormal<0.10[facility] Comment on above:Order Comment: Specimen Type: BLOOD SPECIMENOrdering Facility: [facility] Address:[address] [place] [address] Performed By: #### 72721-8 ####[facility] LABCLIA [id number] [place] [address] [place] Immature granulocytes/100 WBC (Bld)0.4 %NormalBrown Memorial Hospital on above:Order Comment: Specimen Type: BLOOD SPECIMENOrdering Facility: [facility] Address:[address] [place] [address] Performed By: #### 09072-4 ####[facility] LABCLIA [id number] [place] [address] [place] Lymphocytes (Bld) [#/Vol]1.03 10*3/uLNormal1.00-4.00[facility] Comment on above:Order Comment: Specimen Type: BLOOD SPECIMENOrdering Facility: [facility] Address:[address] [place] [address] Performed By: #### 82808-0 ####[facility] LABCLIA [id number] [place] [address] [place] Lymphocytes/100 WBC (Bld)20.8 %NormalBrown Memorial Hospital on above: Order Comment: Specimen Type: BLOOD SPECIMENOrdering Facility: [facility] Address:[address] [place], [place] [address]Performed By: #### 22031- 8 ####[facility] LABCLIA [id number] [address] (RBC) [Entitic mass]29.8 pg Jqrrpn01.0-34.0[facility] on above:Order Comment: Specimen Type: BLOOD SPECIMENOrdering Facility: [facility] Address:[address] [place], [place] [address]Performed By: #### 78802-2 ####[facility] LABCLIA [id number] [address] [facility] LIMAMCHC (RBC) [Mass/Vol]31.8 g/dL Euzbpe23.5-36.0[facility] on above:Order Comment: Specimen Type: BLOOD SPECIMENOrdering Facility: [facility] Address:[address] [place], [place] [address]Performed By: #### 63366-2 ####[facility] LABCLIA [id number] [address]ETMCV (RBC) [Entitic vol]93.5 fL Janlan73.0-100.0[facility] on above:Order Comment: Specimen Type: BLOOD SPECIMENOrdering Facility: [facility] Address:[address] [place], [place] [address]Performed By: #### 47024-6 ####[facility] LABCLIA [id number] [place] [address] [place] AMERICAMonocytes (Bld) [#/Vol]0.46 10*3/uLNormal<0.87[facility] on above:Order Comment: Specimen Type: BLOOD SPECIMENOrdering Facility: [facility] Address:[address] [place], [place] [address]Performed By: #### 34374-9 ####[facility] LABCLIA [id number] [place] [address] [place] AMERICAMonocytes/100 WBC (Bld)9.3 % NormalBrown Memorial Hospital on above:Order Comment: Specimen Type: BLOOD SPECIMENOrdering Facility: [facility] Address:[address] [place], [place] [address]Performed By: #### 22201-8 ####[facility] LABCLIA [id number] [place] [address] [place] AMERICANeutrophils (Bld) [#/Vol]3.30 10*3/uLNormal1.45-7.50[facility] on above:Order Comment: Specimen Type: BLOOD SPECIMENOrdering Facility: [facility] Address:[address] [place], [place] [address]Performed By: #### 16105-6 ####[facility] LABCLIA [id number] [place] [address] [place] AMERICANeutrophils/100 WBC (Bld)66.5 %NormalBrown Memorial Hospital on above:Order Comment: Specimen Type: BLOOD SPECIMENOrdering Facility: [facility] Address:[address] [place] [address] Performed By: #### 45323-9 ####[facility] LABCLIA [id number] [place] [address] [place] Nucleated RBC (Bld) [#/Vol]10*3/uLNormal<0.01[facility] on above:Order Comment: Specimen Type: BLOOD SPECIMENOrdering Facility: [facility] Address:[address] [place] [address] Performed By: #### 29281-2 ####[facility] LAB[facility] [id number] [place] [address] [place] Nucleated RBC/100 WBC (Bld) [Ratio]0.0 /100 WBCNormalCFlower Hospital Comment on above:Order Comment: Specimen Type: BLOOD SPECIMENOrdering Facility: [facility] Address:[address] [place] [address] Performed By: #### 99341-3 ####[facility] [id number] [place] [address] [place] Platelet mean volume (Bld) [Entitic vol]9.3 fLNormal9.0-12.7CBlanchard Valley Health [facility] on above:Order Comment: Specimen Type: BLOOD SPECIMENOrdering Facility: [facility] Address:[address] [place], [place] [address]Performed By: #### 23026-4 ####[facility] [id number] [place] [address] [place] Platelets (Bld) [#/Vol]338 10*3/cAElfxdp462-561TwxjgbhfkBrown Memorial Hospital on above:Order Comment: Specimen Type: BLOOD SPECIMENOrdering Facility: [facility] Address:[address] [place] [address] Performed By: #### 49742-7 ####[facility] LABIA [id number] [place] [address] [place] RBC (Bld) [#/Vol]4.00 10*6/uLNormal3.90-5.20[facility] on above:Order Comment: Specimen Type: BLOOD SPECIMENOrdering Facility: [facility] Address:[address] [place] [address] [place], [place] [address]Performed By: #### 95187-1 ####[facility] LABIA [id number] [place] [address] [place] AMERICAWBC (Bld) [#/Vol]4.96 10*3/uLNormal3.70-11.00[facility] on above:Order Comment: Specimen Type: BLOOD SPECIMENOrdering Facility: [facility] Address:[address] [place], [place] [address]Performed By: #### 70459-7 ####[facility] LABIA [id number] [address] [facility] LIMACNOVon [id number] Visit (NREUS2) CHIKIS TOBAR ([id number]) 1965 F Date Time Provider Department 04/10/24 2:00 PM MARLENE CORDERO NREUS2 During your visit today, we recorded the following information about you: Pulse Blood pressure 97/minute 120/61 Marlene Cordero PA-C 04/10/2024 2:16 PM Signed CC: 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 f/u HPI: Mrs Chikis Tobar is a 58 year old female with 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 Chikis's shunt was previously removed at [facility] on 07/10/23 following surgery for bowel obstruction followed by worsening symptoms.shunt was reimplanted on 10/11/23 with multiple episodes of slit like ventricles and previous hygroma development with shunt set to 7. Her valve is currently set to 8. Since last visit, Chikis feels her BLE spasms have worsened. She continues to follow with physical medicine and neurology, scheduled for botox next week. She denies any changes in her balance, cognition or onset of headaches. Trujillo in place. Returned home from rehab, doing outpatient PT Focused Exam: Right frontal shunt site examined, [...] XII: Tongue protrusion full and midline Motor: spasticity of BLE Wheel chair dependent Impression: Chikis Tobar is a pleasant 58 year old female with a history of communicating hydrocephalus. 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 Her shunt was re inserted on 10/11/23 with Certas valve. Her shunt is currently set to 8 due to multiple previous episodes of slit like ventricles when shunt was set to 7. Chikis denies any changes to her balance or cognition. Trujillo catheter in place. She denies headaches. On CT brain, ventricles have relaxed, shunt in place without acute abnormality. She will continue to follow with neurology and physical medicine for treatment of BLE spasticity. Follow up in [address] brain. Plan: Shunt information Shunt type: Certas Initial settin New settin Marlene Faustin PA-C, PA-C 04/11/2024 7:13 AM Signed Addended by: MARLENE CORDERO on: 04/11/2024 07:13 AM Modules accepted: Orders Referring Provider: MARLENE CORDERO [[id number]] Allergies As of Date: 04/10/2024 Noted Allergy Reaction DEMERAL (MEPERIDINE) 02/09/2021 8 - GI Upset Comments: Nausea, pt states room spins FLEXERIL (CYCLOBENZAPRINE) 02/09/2021 4 - Hives ORPHENADRINE 09/30/2015 14 - Other: See Comments 4 - Hives 2 - Rash VERSED (MIDAZOLAM) 02/18/2021 1 - Mental Status Change Date Reviewed: 04/10/2024 Reviewed by: Kierra Gilmore OCCA - Fully Assessed Reason for Visit: Established Patient [175] Cmt: Other hydrocephalus Primary Visit Diagnosis: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] Other Visit Diagnosis:Other hydrocephalus (HCC) [G91.8] Order(s):CT BRAIN WO IVCON [[id number]] Order #: [id number] FUTURE Prescriptions as of 04/11/2024 - bumetanide (BUMEX) 1 mg tablet Take 1 tablet by mouth every 12 hours. - oxyCODONE ir (OXYIR) 5 mg capsule Take 5 mg by mouth every 4 hours as needed for pain. - baclofen 5 mg tablet Take 10 mg by mouth. 1 tablet in morning, 1 tablet in the afternoon, 2 tablets at night. 1 tablet at bedtime PRN - cyanocobalamin (VITAMIN B-12) 1,000 mcg tab Take 1,000 mcg by mouth. - glucagon 3 mg/actuation nasal spray (BAQSIMI) - ondansetron orally disintegrating (ZOFRAN ODT) 4 mg disintegrating tablet Take 4 mg by mouth every 6 hours as needed. - DULCOLAX, BISACODYL, RECTAL by RECTAL route once daily as needed. - lisinopril (ZESTRIL) 40 mg tablet Take 40 mg by mouth once daily. - acetaminophen (TYLENOL) 650 mg suppository 650 mg by RECTAL route every 4 hours as needed for pain or fever (specify temp.). - dextrose 40 % gel Take 15 g by mouth as needed. - insulin aspart U-100 (NOVOLOG) 100 unit/mL Use via insulin pump Max daily dose 100 units, DX: E10.65 - acetaminophen (TYLENOL) 325 mg tablet 2 tablets by ORAL/FEEDING TUBE route every 6 hours as needed for pain. - aspirin, enteric coated (ADULT LOW DOSE ASPIRIN) 81 mg EC tablet Start A (more content not included)...NormalMercy Health Allen HospitalCNOVOffice Visit (INFDMN) CHIKIS TOBAR ([id number]) 1965 F Date Time Provider Department 04/10/24 12:30 PM JAMIE MCCARTY [facility] During your visit today, we recorded the following information about you: Temperature Pulse Respiration Blood pressure 98.8 degrees 97/minute 18/minute 120/61 Jamie Mccarty MD 04/19/2024 12:41 PM Signed INFECTIOUS DISEASES OUTPATIENT FOLLOW-UP NOTE SERVICE DATE: April 10, 2024 Last visit:January 10, 2024 Summary of HPI HPI: 58 year old female with medical history of [...] performed and she was transferred to [facility]. She was found to have DKA. A CT head showed hydrocephalus with MRI on May 29 showing multiple enhancement in the anterior sabra, medulla, and in the spine at the level of C7-T3 and L1-S2. Multiple taps were performed and were unsuccessful. A 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 was placed and patient underwent a [...] lobes (8 mm). LFTs 08/16 normal . 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 was adjusted from 4 to 7 Posaconazole level 2.4 on 08/21/22 Developed a facial rash in September 2022, mainly the malar area, a few spots on the forehead. Dx'd with rosacea by PCP and started on metronidazole gel. She was seeing wound care at [facility] for her sacral area ulcer. Rx'd with medical honey gel and silicone bordered foam bandage. Healed over several months At her ID clinic visit 10/18/22 she was doing very well. The rash had improved over malar region with a few papules on forehead. Appeared c/w rosacea, [...] decrease in smal bifrontal convexity subdural hygromas. 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 Has gained wt. Urology felt her urothelial CA was CHRISTINE on surveillance imaging, urine cytology. Continue surveillance imaging q 6 months. Truj[address] remains in place. ID clinic 01/15/23, doing fairly well overall, tolerating posaconazole. Strength improving and ambulatory, using a cane PRN. No 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 issues. Balance has improved but still [...] of antifungals and then reassess with imaging. ID clinic 03/19/23: Seemed to have reached a plateau with her neuro recovery, with stable balance problems and various areas of sensory loss. Neuro exam showed abnormal (more content not included)...NormalMercy Health Allen Hospital CRP SerPl-mCncon [id number] [Mass/Vol]mg/LNormal<0.9CFlower HospitalComment on above:Order Comment: Specimen Type: BLOOD SPECIMENOrdering Facility: [facility] Address:[address] [place], [place] [address]Performed By: #### 26910-5, 1987-08 ####[facility] LABCLIA [id number] [place] [address] [place] AMERICACRP [Mass/Vol]on [id number] and review of laboratory resultsNormalCleveland ClinicCT BRAIN WO IVCONon [id number] BRAIN WO IVCON* * *Final Report* * * DATE OF EXAM: Apr 10 2024 1:12PM [facility] [address] - CT BRAIN WO IVCON / PROCEDURE REASON: Other hydrocephalus (HCC) * * * * Physician Interpretation * * * * EXAMINATION: CT BRAIN WO IVCON CLINICAL HISTORY: Other hydrocephalus (HCC). 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 TECHNIQUE: Serial axial images without IV contrast were obtained from the vertex to the foramen magnum. MQ: CTBWO_3 CT Radiation dose: Integrated Dose-Length Product (DLP) for this visit = 845 mGy*cm CT Dose Reduction Employed: No dose reduction techniques were required COMPARISON: CT brain 02/07/2024, 01/10/2024, 11/29/2023. RESULT: Localizer images: No additional findings. Post-operative change: Redemonstrated right parietal/occipital approach ventriculostomy catheter with tip in right lateral ventricle anterior aspect along septum pellucidum, unchanged. Images external components appear intact. Right frontal maría hole with subjacent linear parenchymal low-attenuation extending to right lateral ventricle suggesting prior ventriculostomy tract. Acute change: No evidence of an acute infarct or other acute parenchymal process. Hemorrhage: No evidence of acute intracranial hemorrhage. ECASS hemorrhagic transformation score: Not Applicable Mass Lesion / Mass Effect: There is no evidence of an intracranial mass or extraaxial fluid collection. No significant mass effect. Chronic change: Scattered patchy foci of low attenuation are present within supratentorial white matter which is a nonspecific finding but likely represents mild microvascular ischemia. Parenchyma: There is no significant volume loss. Ventricles: Right ventriculostomy catheter as above. Ventricular calibers overall increased from 02/07/2024, with size and morphology comparable to that seen on 01/10/2024 CT. Paranasal sinuses and skull base: Similar partial opacification of right sphenoid sinus with lobulated material in degree of wall thickening/sclerosis. The remaining visualized paranasal sinuses are grossly clear. The skull base and imaged soft tissues are unremarkable. IMPRESSION: Increased caliber of ventricular system compared to 02/07/2024, now comparable to 01/10/2024, with ventriculostomy catheter unchanged in position. Laundry Aid: [facility] Transcribe Date/Time: Apr 10 2024 1:26P Dictated by : DION ORTIZ MD This examination was interpreted and the report reviewed and electronically signed by: VASQUEZ VEGA MD on Apr 10 2024 1:57PM EST [id number] Clinic Children's Hospital for Rehabilitation Head WO contraston [id number]: Increased caliber of ventricular system compared to 02/07/2024, now comparable to 01/10/2024, with ventriculostomy catheter unchanged in position. Laundry Aid: [facility] Transcribe Date/Time: Apr 10 2024 1:26P Dictated by : DION ORTIZ MD This examination was interpreted and the report reviewed and electronically signed by: VASQUEZ VEGA MD on Apr 10 2024 1:57PM [facility] DIVISION OF RADIOLOGY* * *Final Report* * * DATE OF EXAM: Apr 10 2024 1:12PM [facility] [address] - CT BRAIN WO IVCON / PROCEDURE REASON: Other hydrocephalus (HCC) * * * * Physician Interpretation * * * * EXAMINATION: CT BRAIN WO IVCON CLINICAL HISTORY: Other hydrocephalus (HCC). 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 TECHNIQUE: Serial axial images without IV contrast were obtained from the vertex to the foramen magnum. MQ: CTBWO_3 CT Radiation dose: Integrated Dose-Length Product (DLP) for this visit = 845 mGy*cm CT Dose Reduction Employed: No dose reduction techniques were required COMPARISON: CT brain 02/07/2024, 01/10/2024, 11/29/2023. RESULT: Localizer images: No additional findings. Post-operative change: Redemonstrated right parietal/occipital approach ventriculostomy catheter with tip in right lateral ventricle anterior aspect along septum pellucidum, unchanged. Images external components appear intact. Right frontal maría hole with subjacent linear parenchymal low-attenuation extending to right lateral ventricle suggesting prior ventriculostomy tract. Acute change: No evidence of an acute infarct or other acute parenchymal process. Hemorrhage: No evidence of acute intracranial hemorrhage. ECASS hemorrhagic transformation score: Not Applicable Mass Lesion / Mass Effect: There is no evidence of an intracranial mass or extraaxial fluid collection. No significant mass effect. Chronic change: Scattered patchy foci of low attenuation are present within supratentorial white matter which is a nonspecific finding but likely represents mild microvascular ischemia. Parenchyma: There is no significant volume loss. Ventricles: Right ventriculostomy catheter as above. Ventricular calibers overall increased from 02/07/2024, with size and morphology comparable to that seen on 01/10/2024 CT. Paranasal sinuses and skull base: Similar partial opacification of right sphenoid sinus with lobulated material in degree of wall thickening/sclerosis. The remaining visualized paranasal sinuses are grossly clear. The skull base and imaged soft tissues are unremarkable. DIVISION OF RADIOLOGYProvider, [facility] [place] - 04/10/2024 * * *Final Report* * * DATE OF EXAM: Apr 10 2024 1:12PM [facility] [address] - CT BRAIN WO IVCON / PROCEDURE REASON: Other hydrocephalus (HCC) * * * * Physician Interpretation * * * * EXAMINATION: CT BRAIN WO IVCON CLINICAL HISTORY: Other hydrocephalus (HCC). 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 TECHNIQUE: Serial axial images without IV contrast were obtained from the vertex to the foramen magnum. MQ: CTBWO_3 CT Radiation dose: Integrated Dose-Length Product (DLP) for this visit = 845 mGy*cm CT Dose Reduction Employed: No dose reduction techniques were required COMPARISON: CT brain 02/07/2024, 01/10/2024, 11/29/2023. RESULT: Localizer images: No additional findings. Post-operative change: Redemonstrated right parietal/occipital approach ventriculostomy catheter with tip in right lateral ventricle anterior aspect along septum pellucidum, unchanged. Images external components appear intact. Right frontal maría hole with subjacent linear parenchymal low-attenuation extending to right lateral ventricle suggesting prior ventriculostomy tract. Acute change: No evidence of an acute infarct or other acute parenchymal process. Hemorrhage: No evidence of acute intracranial hemorrhage. ECASS hemorrhagic transformation score: Not Applicable Mass Lesion / Mass Effect: There is no evidence of an intracranial mass or extraaxial fluid collection. No significant mass effect. Chronic change: Scattered patchy foci of low attenuation are present within supratentorial white matter which is a nonspecific finding but likely represents mild microvascular ischemia. Parenchyma: There is no significant volume loss. Ventricles: Right ventriculostomy catheter as above. Ventricular calibers overall increased from 02/07/2024, with size and morphology comparable to that seen on 01/10/2024 CT. Paranasal sinuses and skull base: Similar partial opacification of right sphenoid sinus with lobulated material in degree of wall thickening/sclerosis. The remaining visualized paranasal sinuses are grossly clear. The skull base and imaged soft tissues are unremarkable. IMPRESSION IMPRESSION: Increased caliber of ventricular system compared to 02/07/2024, now comparable to 01/10/2024, with ventriculostomy catheter unchanged in position. Laundry Aid: [facility] Transcribe Date/Time: Apr 10 2024 1:26P Dictated by : DION ORTIZ MD This examination was interpreted and the report reviewed and electronically signed by: VASQUEZ VEGA MD on Apr 10 2024 1:57PM EST [facility] ClinicRadiology Study observation (narrative)The [facility] SystemCT Head WO contrastOrdered By: Ccf Provider on [id number] ClinicComprehensive metabolic 2000 panelon [id number] [Mass/Vol]4.0 g/dL3.9 - 4.9 g/dL [facility] ClinicALP [Catalytic activity/Vol]185 U/LHigh34 - 123 U/LCleveland ClinicALT [Catalytic activity/Vol]15 U/L7 - 38 U/LCleveland ClinicAnion gap [Moles/Vol]12 mmol/L8 - 15 mmol/LCleveland ClinicAST [Catalytic activity/Vol]19 U/L13 - 35 U/LCleveland ClinicBilirubin [Mass/Vol]0.3 mg/dL0.2 - 1.3 mg/dL [facility] ClinicCalcium [Mass/Vol]9.6 mg/dL8.5 - 10.2 mg/dLThe [facility] System Chloride [Moles/Vol]104 mmol/L98 - 107 mmol/LCleveland ClinicCO2 [Moles/Vol]27 mmol/L22 - 30 mmol/LCleveland ClinicCreatinine [Mass/Vol]0.69 mg/dL0.58 - 0.96 mg/dLWhite Hall ClinicGFR/1.73 sq M.predicted among non-blacks MDRD (S/P/Bld) [Vol rate/Area]101 mL/min/{1.73_m2}- PINFCleveland ClinicComment on above: Estimated Glomerular Filtration Rate (eGFR) is calculated using the 2020 CKD-EPI creatinine equation. This equation utilizes serum creatinine, sex, and age as parameters. The creatinine assay has traceable calibration to isotope dilution- mass spectrometry. Refer to KDIGO guidelines for clinical interpretation. In patients with unstable renal function, e.g. those with acute kidney injury, the eGFRmay not accurately reflect actual GFR.Glucose [Mass/Vol]106 mg/jVIuel35 - 99 mg/dLThe Metrohealth SystemComment on above:The [place] Diabetes Association (ADA) provides guidance for cutoff values for fasting glucose andrandom glucose. The ADA defines fasting as no caloric intake for at least 8 hours. Fasting plasma gl ucose results between 100 to 125 mg/dL indicate [...] Standards of Medical Care in Diabetes 2016, [place] Diabetes Association. Diabetes Care. 2016.39(Suppl 1). Interpretation and review of laboratory resultsAbnormalCleveland ClinicPotassium [Moles/Vol]4.1 mmol/L3.7 - 5.1 mmol/LClevelformerly [facility]em[facility] ClinicProtein [Mass/Vol]6.8 g/dL 6.3 - 8.0 g/dLBarnesville Hospitalodium [Moles/Vol]143 mmol/L136 - 144 mmol/L The Metrohealth SystemUrea nitrogen [Mass/Vol]17 mg/dL7 - 21 mg/dLThe [facility] System Albumin [Mass/Vol]4.0 g/dLNormal3.9-4.9CFlower HospitalComment on above:Order Comment: Specimen Type: BLOOD SPECIMENOrdering Facility: [facility] Address:[address] [place], [place] [address]Performed By: #### 71696-5, 1987-08 ####[facility] LABCLIA [id number] [place] [address] [place] AMERICAALP [Catalytic activity/Vol]185 U/PTlol65-826UgplxzrqmBrown Memorial Hospital on above:Order Comment: Specimen Type: BLOOD SPECIMENOrdering Facility: [facility] Address:[address] [place], [place] [address]Performed By: #### 33425- 8, 1987-08 ####[facility] LABCLIA [id number] [facility] [place] [address] [place] AMERICAALT [Catalytic activity/Vol]15 U/LNormal7-38[facility] on above:Order Comment: Specimen Type: BLOOD SPECIMENOrdering Facility: [facility] Address:[address] [place], [place] [address]Performed By: #### 41042- 8, 1987-08 ####[facility] LABCLIA [id number] [facility] [place] [id number] [place] AMERICAAnion gap [Moles/Vol]12 mmol/LNormal8-15[facility] on above:Order Comment: Specimen Type: BLOOD SPECIMENOrdering Facility: [facility] Address:[address] [place], [place] [address]Performed By: #### 13030-8, 1987-08 ####[facility] LABCLIA [id number] [place] [address] [place] AMERICAAST [Catalytic activity/Vol]19 U/WGqckdo35-35MdboakrocBrown Memorial Hospital on above:Order Comment: Specimen Type: BLOOD SPECIMENOrdering Facility: [facility] Address:[address] [place], [place] [address]Performed By: #### 73057-3, 1987-08 ####[facility] LABIA [id number] [place] [address] [place] AMERICABilirubin [Mass/Vol]0.3 mg/dLNormal0.2-1.3 [facility] on above:Order Comment: Specimen Type: BLOOD SPECIMENOrdering Facility: [facility] Address:[address] [place], [place] [address]Performed By: #### 20782-0, 1987-08 ####[facility] LABIA [id number] [place] [address] [place] AMERICACalcium [Mass/Vol]9.6 mg/dLNormal8.5-10.2CBlanchard Valley Health [facility] on above:Order Comment: Specimen Type: BLOOD SPECIMENOrdering Facility: [facility] Address:[address] [place], [place] [address]Performed By: #### 16545-9, 1987-08 ####[facility] LABCLIA [id number] [place] [address] [place] OF AMERICAChloride [Moles/Vol]104 mmol/SGadjbx65-263WeflilifaMercy Health Allen Hospital Comment on above:Order Comment: Specimen Type: BLOOD SPECIMENOrdering Facility: [facility] Address:[address] [place] [address] Performed By: #### 16045-5, 1987-08 ####[facility] LABCLIA [id number] [address] [place] [id number] [place] CO2 [Moles/Vol]27 mmol/AVxgxnn63-81XkbbpqdoiMercy Health Allen HospitalComment on above: Order Comment: Specimen Type: BLOOD SPECIMENOrdering Facility: [facility] Address:[facility] [address], [place] [address]Performed By: #### 78161- 8, 1987-08 ####[facility] LABCLIA [id number] [place] [address] [place] AMERICACreatinine [Mass/Vol] 0.69 mg/dLNormal0.58-0.96Mercy Health Allen HospitalComment on above:Order Comment: Specimen Type: BLOOD SPECIMENOrdering Facility: [facility] Address:[facility] [address], [place] [address]Performed By: #### 80093- 8, 1987-08 ####[facility] LABCLIA [id number] [place] [address] [place] AMERICACreatinine and Glomerular filtration rate.predicted panel (S/P/Bld)101 mL/min/1.73m???Normal >=60[facility] on above:Order Comment: Specimen Type: BLOOD SPECIMENOrdering Facility: [facility] Address:[facility] [address] [id number] Comment: Estimated Glomerular Filtration Rate (eGFR) is calculated using the 2020 CKD-EPI creatinine equation. This equation utilizes serum creatinine, sex, and age as parameters. The creatinine assay has traceable calibration to isotope dilution-mass spectrometry. Refer to KDIGO guidelines for clinical interpretation. In patients with unstable renal function, e.g. those with acute kidney injury, the eGFR may not accurately reflect actual GFR.Performed By: #### 74964-3, 1987-08 ####[facility] LABCLIA [id number] [place] [address] [place] AMERICAGlucose [Mass/Vol]106 mg/zBDqfe57-23GzfrcznflMercy Health Allen Hospital Comment on above:Order Comment: Specimen Type: BLOOD SPECIMENOrdering Facility: [facility] Address:[address] [place], [place] [address]Result Comment: The [place] Diabetes Association (ADA) provides guidance for cutoff [...] Standards of Medical Care in Diabetes 2016, [place] Diabetes Association. Diabetes Care. 2016.39(Suppl 1).Performed By: #### 54638-0, 1987-08 ####[facility] LABIA [id number] [place] [address] [place] AMERICAPotassium [Moles/Vol]4.1 mmol/L Normal3.7-5.1CFlower HospitalComment on above:Order Comment: Specimen Type: BLOOD SPECIMENOrdering Facility: [facility] Address:[address] [place], [place] [address]Performed By: #### 70514-5, 1987-08 ####[facility] LABIA [id number] [place] [id number] [place] AMERICAProtein [Mass/Vol]6.8 g/dLNormal6.3-8.0[facility] on above:Order Comment: Specimen Type: BLOOD SPECIMENOrdering Facility: [facility] Address:[address] [place], [place] [address]Performed By: #### 57840-2, 1987-08 ####[facility] LABCLIA [id number] [place] [address] [place] AMERICASodium [Moles/Vol]143 mmol/CVuqwik797-568GlmxsznnzMercy Health Allen HospitalComment on above:Order Comment: Specimen Type: BLOOD SPECIMENOrdering Facility: [facility] Address:[address] [place], [place] [address]Performed By: #### 86527-9, 1987-08 ####[facility] LABCLIA [id number] [place] [address] [place] AMERICAUrea nitrogen [Mass/Vol]17 mg/dLNormal7-21[facility] Comment on above:Order Comment: Specimen Type: BLOOD SPECIMENOrdering Facility: [facility] Address:[address] [place] [address] Performed By: #### 65710-3, 1987-08 ####[facility] LABCLIA [id number] [place] [address] [place] Eosinophils/100 WBC Auto (Bld)on 03-74-7083Uopgvpruekl/100 WBC (Bld)Automated eosinophil %[facility] City HospitalErythrocyte distribution width Auto (RBC) [Ratio]on 30-64-6465Sirnpetpjbx distribution width (RBC) [Ratio] Erythrocyte distribution width [Ratio] by Automated count11.5-15.0[facility] HospitalHematocrit Auto (Bld) [Volume fraction]on 04-10-2024 Hematocrit (Bld) [Volume fraction]Hematocrit [Volume Fraction] of Blood by Automated count36.0-46.0[facility] HospitalHemoglobin [Mass/volume] in Bloodon 35-82-1866Xmrumyuyky (Bld) [Mass/Vol]Hemoglobin [Mass/volume] in Blood11.5-15.5FLancaster Municipal HospitalLaboratory - Chemistry and Chemistry - challengeon 98-82-5461Hfllxmi [Mass/Vol]4.0 g/dL 3.9-4.9[facility] HospitalALP [Catalytic activity/Vol]185 U/LHigh 34-123[facility] HospitalALT [Catalytic activity/Vol]15 U/L7-38 [facility] HospitalAST [Catalytic activity/Vol]19 U/L13-35 [facility] HospitalBilirubin [Mass/Vol]0.3 mg/dL0.2-1.3FLancaster Municipal HospitalCalcium [Mass/Vol]9.6 mg/dL8.5-10.2FLancaster Municipal HospitalChloride [Moles/Vol]104 mmol/B66-257KvphgfmnmTwin City HospitalCO2 [Moles/Vol]27 mmol/R93-41UxfaemcibTwin City HospitalCreatinine [Mass/Vol]0.69 mg/dL0.58-0.96[facility] HospitalGlucose [Mass/Vol] 106 mg/bDTiji63-83HualzumnuTwin City HospitalComment on above:The [place] Diabetes Association (ADA) provides guidance for cutoff values for fasting glucose andrandom glucose. The ADA defines fasting as no [...] hyperglycemia or hyperglycemic crisis, random plasma glucose resultsgreater than or equal to 200 mg/dL meet the criteria for diagnosis of diabetes.Reference: Standardsof Medical Care in Diabetes 2016, [place] Diabetes Association. Diabetes Care. 2016.39(Suppl 1). Potassium [Moles/Vol]4.1 mmol/L3.7-5.1FTriHealthodium [Moles/Vol]143 mmol/I677-804FmwoechmfTwin City HospitalUrea nitrogen [Mass/Vol]17 mg/dL7-21[facility] HospitalLaboratory - Hematology and Cell countson 32-74-3542Qgkvrrjmfje (Bld) [#/Vol]0.11 10*3/uL<0.46[facility] HospitalImmature granulocytes/100 WBC (Bld)0.4 %[facility] HospitalLeukocytes [#/volume] corrected for nucleated erythrocytes in Blood by Automated counon 98-86-8389URM corrected for nucl RBC Auto (Bld) [#/Vol]Leukocytes [#/volume] corrected for nucleated erythrocytes in Blood by Automated coun3.70-11.00[facility] HospitalLymphocytes Auto (Bld) [#/Vol]on 72-51-7739Hshmvjudeqa (Bld) [#/Vol]Lymphocytes [#/volume] in Blood by Automated count1.00-4.00[facility] Lymphocytes/100 WBC Auto (Bld)on 05-32-9735Hkuqnihhckl/100 WBC (Bld) Lymphocytes/100 leukocytes in Blood by Automated countAdena Fayette Medical CenterH Auto (RBC) [Entitic mass]on 67-99-9407XNR (RBC) [Entitic mass]MCH [Entitic mass] by Automated count26.0-34.0[facility] HospitalMCHC Auto (RBC) [Mass/Vol]on 51-86-1830FTUS (RBC) [Mass/Vol]MCHC [Mass/volume] by Automated count30.5-36.0[facility] HospitalMCV Auto (RBC) [Entitic vol]on 46-81-7836IJU (RBC) [Entitic vol]MCV [Entitic volume] by Automated count 80.0-100.0[facility] HospitalMonocytes Auto (Bld) [#/Vol]on 21-20-5552Svpxatnbe (Bld) [#/Vol]Automated blood monocyte count<0.87[facility] HospitalMonocytes/100 WBC Auto (Bld)on 99-19-2998Anlaykemn/100 WBC (Bld)Automated monocyte %[facility] HospitalNeutrophils Auto (Bld) [#/Vol]on 17-30-5704Uinbbatmccw (Bld) [#/Vol]Neutrophils [#/volume] in Blood by Automated count1.45-7.50[facility] Neutrophils/100 WBC Auto (Bld)on 95-01-5368Omcejpotldo/100 WBC (Bld)Automated neutrophil %[facility] HospitalNo Panel Informationon 04-10-2024 [facility]-Reactive Protein, Quantitative<0.3 mg/dL<0.9[facility] HospitalEstimated GFR (CKD-EPI)101 mL/min/1.73m???>=60[facility] HospitalComment on above:Estimated Glomerular Filtration Rate (eGFR) is calculated using the 2020 CKD-EPI creatinine equation. This equation utilizes serum creatinine, sex, and age as parameters. The creatinine assay has traceable calibration to isotope dilution-mass spectrometry. Refer to KDIGO guidelines for clinical interpretation. In patients with unstable renal function, e.g. those with acute kidney injury, the eGFRmay not accurately reflect actual GFR. Immature Granulocyte # (Auto)<0.03 k/uL<0.10[facility] Posaconazole Level2.8 ug/mL0.7-3.9[facility] HospitalComment on above:Ranges are based on trough draw at steady-state concentration.Therapeutic: >0.9 ug/mLProphylactic: >0.6 ug/mLToxic: >3.9 ug/mLThe therapeutic, prophylactic, and toxic ranges were based on the 2016 Infectious Disease Society of [place]'s (IDSA) Clinical Practice Guidelines for the Management of Aspergillosis and Candidiasis and consultation from [facility]'s Department of InfectiousDisease.Reference ranges and high/low indicator flags are provided as general guidelines only. The treating physician must determine appropriate target levels/dosing based on the specific clinical situation.This test was developed, and its performance characteristics determined by the [facility] Department of Pathology and Laboratory Medicine. It has not been cleared or approved by the FDA.The [facility] Department of Pathology and Laboratory Medicine is regulated under CLIA as qualified to perform high- complexity testing. This test is used for clinical purposes. It should not be regarded as investigational or for research.Nucleated RBC Auto (Bld) [#/Vol]on 46-28-9009Mndidabww RBC (Bld) [#/Vol]Nucleated erythrocytes [#/volume] in Blood by Automated count<0.01T[facility] City HospitalNucleated erythrocytes [Presence] in Blood by Automated counton 67-87-8139Jhrtdfctr RBC Auto Ql (Bld) Nucleated erythrocytes [Presence] in Blood by Automated countTwin City HospitalPOSACONAZOLE, SERUMon 68-47-6934Wdfpacjvgtqm [Mass/Vol]2.8 ug/mL Normal0.7-3.9CBlanchard Valley Health [facility] on above:Order Comment: Specimen Type: BLOOD SPECIMENOrdering Facility: [facility] Address:[address] [place], [place] [address]Result Comment: Ranges are based on trough draw at steady-state concentration. Therapeutic: >0.9 ug/mL Prophylactic: >0.6 ug/mL Toxic: >3.9 ug/mL The therapeutic, prophylactic, and toxic ranges were based on the 2016 Infectious Disease Society of [place]'s (IDSA) Clinical Practice Guidelines for the Management of Aspergillosis and Candidiasis and consultation from [facility]'s Department of Infectious Disease. Reference ranges and high/low indicator flags are provided as general guidelines only. The treatingphysician must determine appropriate target levels/dosing based on the specific clinical situation. This test was developed, and its performance characteristics determined by the [facility] Department of Pathology and Laboratory Medicine. It has not been cleared or approved by the FDA. The [facility] Department of Pathology and Laboratory Medicine is regulated under CLIA as qualified to perform high-complexity testing. This test is used for clinical purposes. It should not be regarded as investigational or for research.Performed By: #### POSACN ####[facility] LABCLIA [id number] [place] [address] [place] AMERICAPlatelet mean volume Auto (Bld) [Entitic vol]on 06-93-2358Jlpduajj mean volume (Bld) [Entitic vol]Platelet mean volume [Entitic volume] in Blood by Automated count9.0-12.7FLancaster Municipal HospitalPlatelets Auto (Bld) [#/Vol]on 98-25-3360Dliwaflry (Bld) [#/Vol] Platelets [#/volume] in Blood by Automated ilpel168-446ZqpcgoqxjTwin City HospitalProtein [Mass/volume] in Serum or Plasmaon 14-96-7194Muwrfel [Mass/Vol]Protein [Mass/volume] in Serum or Plasma6.3-8.0[facility] HospitalRBC Auto (Bld) [#/Vol]on 59-77-6823HEX (Bld) [#/Vol]Erythrocytes [#/volume] in Blood by Automated count3.90-5.20[facility] Serum or plasma anion gap determinationon 45-68-0536Wgzjo gap [Moles/Vol]Serum or plasma anion gap determination8-15[facility] City HospitalCNPNon 59-93-2998ZPSIJnbmipbxp (REMS31) CHIKIS TOBAR ([id number]) 1965 F Date Time Provider Department 04/04/24 NOEL DANIELS REMS31 During your visit today, we recorded the following information about you: Leonarda Rae 04/04/2024 4:21 PM Signed Patient last visit [facility] on 02/11/24; Last [facility] visit on 01/11/24. Ms. Tobar was supposed to be called to schedule her 3 month Botox injection from 01/11/24. Therefore, she never received a call to schedule and she is due for the injection. Please can you give her a return call? I do not know if she has been approved for next Botox injection. Is it okay to schedule her? Please advise. Sheree Montez, ALISTAIR 04/04/2024 5:00 PM Addendum Seen 01/11/24 for last injections [place] medicare is approved till 04/15/24 SPECIALTY CARE COORDINATION QUICK NOTE Called patient Patient identified by name and date of : Yes Agreed on 04/15 appointment at 114[address]am with Dr Daniels; slot put on hold, page sent to add on she verbalized understanding and agrees with plan No further concerns Allergies As of Date: 04/04/2024 Noted Allergy Reaction DEMERAL (MEPERIDINE) 02/09/2021 8 - GI Upset Comments: Nausea, pt states room spins FLEXERIL (CYCLOBENZAPRINE) 02/09/2021 4 - Hives ORPHENADRINE 09/30/2015 14 - Other: See Comments 4 - Hives 2 - Rash VERSED (MIDAZOLAM) 02/18/2021 1 - Mental Status Change Date Reviewed: 03/18/2024 Reviewed by: Shelbi Gonzalez LPN - Fully Assessed Reason for Visit: Request to be scheduled for next Botox injection. [Other] Prescriptions as of 04/04/2024 - bumetanide (BUMEX) 1 mg tablet Take 1 tablet by mouth every 12 hours. - oxyCODONE ir (OXYIR) 5 mg capsule Take 5 mg by mouth every 4 hours as needed for pain. - baclofen 5 mg tablet Take 10 mg by mouth. 1 tablet in morning, 1 tablet in the afternoon, 2 tablets at night. 1 tablet at bedtime PRN - cyanocobalamin (VITAMIN B-12) 1,000 mcg tab Take 1,000 mcg by mouth. - glucagon 3 mg/actuation nasal spray (BAQSIMI) - ondansetron orally disintegrating (ZOFRAN ODT) 4 mg disintegrating tablet Take 4 mg by mouth every 6 hours as needed. - DULCOLAX, BISACODYL, RECTAL by RECTAL route once daily as needed. - lisinopril (ZESTRIL) 40 mg tablet Take 40 mg by mouth once daily. - acetaminophen (TYLENOL) 650 mg suppository 650 mg by RECTAL route every 4 hours as needed for pain or fever (specify temp.). - dextrose 40 % gel Take 15 g by mouth as needed. - insulin aspart U-100 (NOVOLOG) 100 unit/mL Use via insulin pump Max daily dose 100 units, DX: E10.65 - acetaminophen (TYLENOL) 325 mg tablet 2 tablets by ORAL/FEEDING TUBE route every 6 hours as needed for pain. - aspirin, enteric coated (ADULT LOW DOSE ASPIRIN) 81 mg EC tablet Start ASA 81 mg BID on 10/24 Patient should start on October 25, 2023. - metoprolol succinate ER (TOPROL XL) 100 mg Take 1 tablet by mouth every 12 hours at 6 am and 6 pm. - posaconazole DR (NOXAFIL) 100 mg tablet Take 3 tablets by mouth once daily. - senna-docusate (SENNA-S) 8.6-50 mg per tablet 1 tablet by ORAL/FEEDING TUBE route two times a day. - lactobacillus rhamnosus (CULTURELLE) 10 billion cell capsule (Discontinued) Take 1 capsule by mouth once daily. Problem List As Of Date 04/04/2024 Noted Resolved Neoplasm of bladder [D49.4] 02/16/2021 Asthma [J45.909] 02/16/2021 Essential hypertension [I10] 02/16/2021 Palpitations [R00.2] 02/16/2021 Obesity [E66.9] 02/16/2021 06/11/2022 Diabetes mellitus type I (HCC) [E10.9] Malignant neoplasm of urinary bladder (HCC) [C6*04/20/2021 Small bowel obstruction (HCC) [K56.609] 12/16/2021 12/21/2021 Severe protein-calorie malnutrition (HCC) [E43] 12/20/2021 Hypokalemia [E87.6] 12/21/2021 Hypophosphataemia [E83.39] 12/21/2021 Hyponatremia [E87.1] 01/05/2022 Hypomagnesemia [E83.42] 01/05/2022 Hydronephrosis [N13.30] 01/09/2022 Chronic low back pain without sciatica [M54.50,*03/13/2022 Lesion of lumbar spine [M89.9] 06/10/2022 Spinal cord mass (HCC) [G95.89] 06/15/2022 Unstageable pressure ulcer of sacral region (HC*06/16/2022 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] 09/05/2023 Tibia/fibula fracture, left, closed, initial en*10/07/2023 Dyslipidemia [E78.5] 10/07/2023 10/18/2023 Insulin pump status [Z96.41] 10/07/2023 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*10/07/2023 Fungal meningitis [G02] 10/07/2023 Gait abnormality [R26.9] 10/07/2023 Acute postoperative anemia due to expected bloo*10/09/2023 Hydrocephalus (HCC) [G91.9] 10/11/2023 Type 1 diabetes mellitus with hyperglycemia (HC*10/11/[address] [Z96.41] 10/11/2023 Recurrent falls [R29.6] 10/11/2023 Pressure injury of left heel, stage 1 [L89.621] 10/12/2023 10/12/2023 Deep tissue injury [T14.8XXA] 10/12/2023 Pressure injury of coccygeal region, stage 2 (H*10/12/2023 10/17/2023 Preop exam for internal medicine (more content not included)...NormalOhioHealth [facility]ide [facility] 18-19-4594ZAESDcgivz Visit (NREUS2) CHIKIS TOBAR ([id number]) 1965 F Date Time Provider Department 03/21/24 11:00 AM REGGIE BUTLER NREUS2 During your visit today, we recorded the following information about you: Pulse Blood pressure 86/minute 135/54 Reggie Butler MD 03/21/2024 1:29 PM Signed [facility] - FOLLOW UP EVALUATION Kalli Simons MD [address] [place] [id number] Dear Kalli Simons MD: I had the pleasure of seeing Ms. Tobar for follow-up today. As you know she is a 58 year old right-handed female with a history of hydrocephalus since May 2022 . Subjective HISTORY OF PRESENT ILLNESS: During her previous visit the following plan was made: Previous plan-12/21/2023 Visit: Continue to work with Marlene for shunt adjustments, but this is likely optimized at the time Please try stopping gabapentin as this can sometimes cause leg swelling if this makes spasms worse you can resume the medication for now. In this case we can hold it after you've got the Botox Please proceed to get Botox injections Continue PT Follow up with Dr. Rosado or myself in 3 months [place] immediate relief of muscle spasms that wore off after 2.5 weeks. However she does notice that muscle spasms have been worse recently. Questionnaires: In addition, the following activities of daily living that may be affected by tremors were evaluated: Speaking: Not affected Feeding: Not affected Bringing Liquids to Mouth: Not affected Hygiene: Affected (mild) Dressing: Affected (marked) Writing: Not affected Working: Affected (severe) Number of falls in the Last Month: 1 Mood/Behavior Depression: PHQ-9 Score: 2 usually representing no significant (0-4) depression. Anxiety: NATALIIA-7 Total Score: 2 usually representing no significant (0-4) anxiety. Finally, the following table shows the patient's overall global physical and mental health using the PROMIS scale: PROMIS-10 Flowsheet Row Office Visit from 03/21/2024 in [facility] Visit [facility] 11/29/2023 in [facility] Global Physical Health T Score 39.8 34.9 Global Mental Health T Score 50.8 45.8 0-10 Standard Pain Scale 4 3 *PROMIS-10 scoring scale: mean = 50, over 50 is above average, under 50 is below average ALLERGIES Allergen Reactions Demeral [Meperidine] GI Upset Nausea, pt states room spins Flexeril [Cyclobenz* Hives Orphenadrine Other: See Comments, Hives, Rash Versed [Midazolam] Mental Status Change Current Outpatient Medications Medication Sig bumetanide (BUMEX) 1 mg tablet Take 1 tablet by mouth every 12 hours. oxyCODONE ir (OXYIR) 5 mg capsule Take 5 mg by mouth every 4 hours as needed for pain. baclofen 5 mg tablet Take 10 mg by mouth. 1 tablet in morning, 1 tablet in the afternoon, 2 tablets at night. 1 tablet at bedtime PRN cyanocobalamin (VITAMIN B-12) 1,000 mcg tab Take 1,000 mcg by mouth. glucagon 3 mg/actuation nasal spray (BAQSIMI) ondansetron orally disintegrating (ZOFRAN ODT) 4 mg disintegrating tablet Take 4 mg by mouth every 6 hours as needed. DULCOLAX, BISACODYL, RECTAL by RECTAL route once daily as needed. lisinopril (ZESTRIL) 40 mg tablet Take 40 mg by mouth once daily. acetaminophen (TYLENOL) 650 mg suppository 650 mg by RECTAL route every 4 hours as needed for pain or fever (specify temp.). dextrose 40 % gel Take 15 g by mouth as needed. insulin aspart U-100 (NOVOLOG) 100 unit/mL Use via insulin pump Max daily dose 100 units, DX: E10.65 acetaminophen (TYLENOL) 325 mg tablet 2 tablets by ORAL/FEEDING TUBE route every 6 hours as needed for pain. aspirin, enteric coated (ADULT LOW DOSE ASPIRIN) 81 mg EC tablet Start ASA 81 mg BID on 10/24 Patient should start on October 25, 2023. metoprolol succinate ER (TOPROL XL) 100 mg Take 1 tablet by mouth every 12 hours at 6 am and [address] (NOXAFIL) 100 mg tablet Take 3 tablets by mouth once daily. senna-docusate (SENNA-S) 8.6-50 mg per tablet 1 tablet by ORAL/FEEDING TUBE route two times a day. No current facility-administered medications for this visit. Objective Physical Examination: Vital Signs: BP 135/54 (BP Site: Left Arm, BP Position: Sitting, BP Cuff Size: Regular Adult) Pulse 86 SpO2 100% General: Awake, alert, interactive, no acute distress, good nutritional status, normal development, well-kept Neurological Exam Mental Status Awake, alert and oriented to person, place and time. Recent and remote memory are intact. Speech is normal. Language is fluent with no aphasia. Cranial Nerves Cranial nerves normal unless stated otherwise. Motor Normal muscle bulk throughout. Strength is 5/5 in all four extremities except as noted. Severely diminished lower extremity strength Normal tone throughout with paratonia in LLE. No upper extremity bradkinesia or tremor. Reflexe (more content not included)...NormalThe [facility] System SerPl-cCncon 20-66-6725RTD [Catalytic activity/Vol]159 U/EHelf83-916RldhaltdzTwin City HospitalComment on above:Order Comment: Specimen Type: BLOOD SPECIMENOrdering Facility: [facility] Address:[address] [place], [place] [address]Performed By: #### 6768-6 ####[facility] LABCLIA [id number] [facility] [id number] [place] [address] STATES OF AMERICACNOVon 12-69-5253AWQIXgaicl Visit ([facility] CHIKIS TOBAR ([id number]) 1965 F Date Time Provider Department 03/18/24 9:00 AM SHELBI RAMOS [facility] During your visit today, we recorded the following information about you: Pulse Blood pressure 75/minute 145/56 Shelbi Ramos MD 03/18/2024 10:22 AM Signed [facility] Clinic - March 18, 2024 Reason for visit: Ms. Tobar is referred by Marlene Cordero for my opinion regarding spasticity. My final recommendation will be communicated back to the requesting physician by way of shared medical record or letter. HISTORY OF PRESENT ILLNESS: Patient is a 58 year old, right-handed, White, female with history of asthma, bladder cancer, diabetes type 1, tibial fracture, HTN, meningitis, obesity, palpitations. History gathered from patient, cousin and electronic medical records. She had bladder cancer in 2020, stoma placed in Apr 2021. She mentions she was in and out the hospital for nausea/vomiting. 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 She is being followed by neurosurgery (Dr. Oconnor/Marlene Cordero), and ID(Dr. Mccarty). She was functional - walking unassisted, riding the bike outdoors. She had twisted bowel in Jun 2023. She went to [place], there was no bed in , transferred to [facility] for bowel obstruction. She had surgery (small bowel resection) 3 days later; had complication as ureters were dislodged and had to be re-attached. VPS was externalized and nothing was draining hence VPS was removed. She was discharged home. Two weeks after shunt was removed, noticed issues with balance, was falling and started having leg spasticity - leg stiffness, sudden episodes when legs would stretch out or flex into the body. She had f/u with neurosurgery and was scheduled to put VPS back(nov 2023). She fell in sep 2023, broke L tibia and fibular fractures needing surgery at .. she was transferred to to get VPS placed. She reports that she was able to walk with the walker day 1 post op. Spasms recurred in rehab([facility]), she can move her feet/toes but could not ambulate, can take steps with parallel bars(L >R, has more difficulty with RLE). She was able to ambulate with platform walker upon discharge(02/15/24). She had home PT upon discharge but not enough hence lost what she has gained. She was in [facility] on 02/07/24, had 'dizzy' - wavy vision after bending over. CT showed shunted ventricles had slit like appearance. Saw neurosurgery on 02/08/24 and adjusted shunt from 7 to 8(closed). She reports that spasms are worse since shunt adjustment. Legs are worse, went to PT yesterday, took 3 PT to get her up(usually 1-person assist), she could usually stand x 5 minutes but yesterday, could only do 20-60 seconds. She has already seen movement disorder(Dr. Mckenzie) in dec 2023. She has also received botox in Dec 2023(Dr. Daniels). PAST MEDICAL HISTORY Diagnosis Date Asthma 02/16/2021 Bladder cancer (HCC) 02/2021 urothelial carcinoma Diabetes mellitus type 1 (HCC) 04/13/2021 diagnosed at age 6 Fracture of tibia 09/2023 HTN (hypertension) 02/16/2021 Meningitis 2022 Patient reported shunt placement (with subsequent removal and re-placement in September,) Neoplasm of bladder 02/16/2021 Obesity 02/16/2021 Palpitations 02/16/2021 PAST SURGICAL HISTORY Procedure Laterality Date CYSTECTOMY W/BI PELVIC LYMPHADENECTOMY 04/2021 CYSTO.PANENDO 05/25/2021 EXPLORATORY OF ABDOMEN 12/17/2021 Reduction of small-bowel volvulus PAST SURGICAL HISTORY OF right ovary removed PAST SURGICAL HISTORY OF ORIF right ankle PAST SURGICAL HISTORY OF 02/18/2021 TURBT REMOVAL OF BLADDER AND NODES VAGINAL HYSTERECTOMY MEDICATIONS: Current Outpatient Medications Medication Sig Dispense Refill furosemide (LASIX) 20 mg tablet Take 20 mg by mouth once daily. oxyCODONE ir (OXYIR) 5 mg capsule Take 5 mg by mouth every 4 hours as needed for pain. baclofen 5 mg tablet Take 10 mg by mouth. 1 tablet in morning, 1 tablet in the afternoon, 2 tablets at night. 1 tablet at bedtime PRN cyanocobalamin (VITAMIN B-12) 1,000 mcg tab Take 1,000 mcg by mouth. glucagon 3 mg/actuation nasal spray (BAQSIMI) ondansetron orally disintegrating (ZOFRAN ODT) 4 mg disintegrating tablet Take 4 mg by mouth every 6 hours as needed. DULCOLAX, BISACODYL, RECTAL by RECTAL route once daily as needed. lisinopril (ZESTRIL) 40 mg tablet Take 40 mg by mouth once daily. acetaminophen (TYLENOL) 650 mg suppository 650 mg by RECTAL route every 4 hours as needed for pain or fever (specify temp.). dextrose 40 % gel Take 15 g by mouth as needed. insulin aspart U-100 (NOVOLOG) 100 unit/mL Use via insulin pump Max daily dose 100 units, DX: E10.65 acetaminophen (TYLENOL) 325 mg tablet 2 tablets by ORAL/FEEDING TUBE route every 6 hours as needed for pain. aspiri (more content not included)...NormalMercy Health Allen HospitalCholesterol in LDL Calc [Mass/Vol]on 99-85-3104Tamidoaflmo in LDL [Mass/Vol]Cholesterol in LDL [Mass/volume] in Serum or Plasma by calculation<100T[facility] City HospitalComment on above:<100 mg/dL, Optimal 100-129 mg/dL, Near optimal/above optimal 130-159 mg/dL, Borderline high 160-189 mg/dL, High>189 mg/dL, Very highSecondary prevention optimal LDL Cholesterol levels are recom mended to be < 70 mg/dLCholesterol in VLDL Calc [Mass/Vol]on 03-18-2024 Cholesterol in VLDL [Mass/Vol]Cholesterol in VLDL [Mass/volume] in Serum or Plasma by calculation<30T[facility] City HospitalCobalamin (Vitamin B12) [Mass/Vol]on 03-59-4758Yguqudtyfkykbf and review of laboratory resultsNormal [facility]tering Health DaytonComp Metab 2000 Pnl SerPlon 70-16-5778Agjsfno [Mass/Vol]3.9 g/dL3.9-4.9T[facility] City HospitalComment on above:Order Comment: Specimen Type: BLOOD SPECIMEN Ordering Facility: [facility] Address: [address] [place], [place] [address], [place] [address]Performed By: #### 3016-3, 52204-0, 35303-2 #### [facility] CLIA [id number] [place] [address] [place] AMERICAALT [Catalytic activity/Vol]15 U/L7-38 [facility] HospitalComment on above:Order Comment: Specimen Type: BLOOD SPECIMEN Ordering Facility: [facility] Address: [address] [place], [place] [address]Performed By: #### 3016-3, 42105-4, 86105-8 #### [facility] CLIA [id number] [address] [place] [address] [place] AMERICAAST [Catalytic activity/Vol]18 U/L13-35 [facility] HospitalComment on above:Order Comment: Specimen Type: BLOOD SPECIMEN Ordering Facility: [facility] Address: [address] [place], [place] [address]Performed By: #### 3016-3, 20205-8, 45775-6 #### [facility] IA [id number] [address] [place] [address] [place] AMERICABilirubin [Mass/Vol]0.5 mg/dL0.2-1.3 [facility] HospitalComment on above:Order Comment: Specimen Type: BLOOD SPECIMEN Ordering Facility: [facility] Address: [address] [place], [place] [address]Performed By: #### 3016-3, 84817-1, 96330-8 #### [facility] CLIA [id number] [address] [place] [address] [place] AMERICACalcium [Mass/Vol]9.0 mg/dL8.5-10.2 [facility] HospitalComment on above:Order Comment: Specimen Type: BLOOD SPECIMEN Ordering Facility: [facility] Address: [address] [place], [place] [address]Performed By: #### 3016-3, 31226-9, 90775-9 #### [facility] CLIA [id number] [address] [place] [address] [place] AMERICAChloride [Moles/Vol]100 mmol/L98-107 [facility] HospitalComment on above:Order Comment: Specimen Type: BLOOD SPECIMEN Ordering Facility: [facility] Address: [address] [place] [address]Jianqwqjk By: #### 3016-3, 58096-3, 89548-5 #### [facility] CLIA [id number] [address] [place] [address] [place] AMERICACO2 [Moles/Vol]31 mmol/UElnf54-72 [facility] HospitalComment on above:Order Comment: Specimen Type: BLOOD SPECIMEN Ordering Facility: [facility] Address: [address] [place] [address]Jxsyyavmj By: #### 3016-3, 68178-9, 53796-3 #### [facility] CLIA [id number] [address] [place] [address] [place] AMERICACreatinine [Mass/Vol]0.62 mg/dL0.58-0.96 [facility] HospitalComment on above:Order Comment: Specimen Type: BLOOD SPECIMEN Ordering Facility: [facility] Address: [address] [place] [address]Htvdsrcdj By: #### 3016-3, 49715-0, 97975-2 #### [facility] CLIA [id number] [address] [place] [address] [place] AMERICAGlucose [Mass/Vol]203 mg/bCDeby46-68 [facility] HospitalComment on above:Order Comment: Specimen Type: BLOOD SPECIMEN Ordering Facility: [facility] Address: [address] [place] [address]Azoics Comment: The [place] Diabetes Association (ADA) provides guidance for cutoff [...] Standards of Medical Care in Diabetes 2016, [place] Diabetes Association. Diabetes Care. 2016.39(Suppl 1).Performed By: #### 3016-3, 99877-7, 62552-9 #### [facility] CLIA [id number] [address] [place] [address] [place] AMERICAThe [place] Diabetes Association (ADA) provides guidance for cutoff values for fasting glucose andrandom glucose. The ADA defines fasting as no caloric intake for at least 8 hours. Fasting plasma gl ucose results between 100 to 125 mg/dL indicate increased risk for diabetes (prediabetes).Fasting plasma glucose results greater than or equal to 126 mg/dL meet the criteria for diagnosis of diabetes. In the absence of unequivocal hyperglycemia, results should be confirmed by repeat testing. In a patient with classic symptoms of hyperglycemia or hyperglycemic crisis, random plasma glucose resultsgreater than or equal to 200 mg/dL meet the criteria for diagnosis of diabetes.Reference: Standardsof Medical Care in Diabetes 2016, [place] Diabetes Association. Diabetes Care. 2016.39(Suppl 1).Potassium [Moles/Vol]3.6 mmol/LLow 3.7-5.1FLancaster Municipal HospitalComment on above:Order Comment: Specimen Type: BLOOD SPECIMEN Ordering Facility: [facility] Address: [address] [id number] By: #### 3016-3, 92074-5, 84484-7 #### [facility] CLIA [id number] [address] [place] [address] [place] AMERICASodium [Moles/Vol]141 mmol/S233-504 [facility] HospitalComment on above:Order Comment: Specimen Type: BLOOD SPECIMEN Ordering Facility: [facility] Address: [address] [id number] By: #### 3016-3, 94105-3, 01847-0 #### [facility] CLIA [id number] [address] [place] [address] [place] AMERICAUrea nitrogen [Mass/Vol]10 mg/dL7-21 [facility] HospitalComment on above:Order Comment: Specimen Type: BLOOD SPECIMEN Ordering Facility: [facility] Address: [address] [place] [phone] By: #### 3016-3, 91408-5, 43677-7 #### [facility] CLIA [id number] [address] [place] [address] [place] AMERICAComprehensive metabolic 2000 panelon 16-99-7826DAT [Catalytic activity/Vol]147 U/LHefz53-647Duqv HospitalComment on above:Order Comment: Specimen Type: BLOOD SPECIMEN Ordering Facility: [facility] Address: [address] [place] [address]Paisggpwc By: #### 3016-3, 00229-8, 62222-7 #### [facility] CLIA [id number] [address] [place] [address] [place] AMERICAAnion gap [Moles/Vol]10 mmol/LNormal8-15 [facility] HospitalComment on above:Order Comment: Specimen Type: BLOOD SPECIMEN Ordering Facility: [facility] Address: [address] [place] [address]Qbpdikbjk By: #### 3016-3, 21842-0, 37969-7 #### [facility] IA [id number] [address] [place] [address] [place] AMERICACreatinine and Glomerular filtration rate.predicted panel (S/P/Bld)104 mL/min/1.73m???Normal>=60AvSt. Vincent Fishers HospitalComment on above:Order Comment: Specimen Type: BLOOD SPECIMEN Ordering Facility: [facility] Address: [address] [place] [address]Zkckum Comment: Estimated Glomerular Filtration Rate (eGFR) is calculated using the 2020 CKD-EPI cre atinine equation. This equation utilizes serum creatinine, sex, and age as parameters. The creatinine assay has traceable calibration to isotope dilution- mass spectrometry. Refer to KDIGO guidelines for clinical interpretation. In patients with unstable renal function, e.g. those with acute kidney injury, the eGFR may not accurately reflect actual GFR.Performed By: #### 3016-3, 77128-0, 58943-8 #### [facility] CLIA [id number] [address] [place] [address] [place] AMERICAProtein [Mass/Vol]6.7 g/dLNormal6.3-8.0 [facility] HospitalComment on above:Order Comment: Specimen Type: BLOOD SPECIMEN Ordering Facility: [facility] Address: [address] [place], [place] [address]Performed By: #### 3016-3, 45277-6, 16134-2 #### [facility] CLIA [id number] [address] [place] [address] [place] AMERICAIMMUNOGLOBULINS,IGG,IGA,IGMon 03-18-2024 IgA [Mass/Vol]177 mg/lGYzebjh79-199Xmsn HospitalComment on above:Order Comment: Specimen Type: BLOOD SPECIMENOrdering Facility: [facility] Address:[address] [place], [place] [address]Performed By: #### SERIMM ####[facility] [id number] [place] [address] [place] AMERICAIgG [Mass/Vol]745 mg/dLNormal 700-1600[facility]on HospitalComment on above:Order Comment: Specimen Type: BLOOD SPECIMENOrdering Facility: [facility] Address:[address] [place], [place] [address]Performed By: #### SERIMM ####[facility] LABCLIA [id number] [place] [address] [place] AMERICAIgM [Mass/Vol]101 mg/kFMmgthh06-068Krvu HospitalComment on above:Order Comment: Specimen Type: BLOOD SPECIMENOrdering Facility: [facility] Address:[address] [place], [place] [address]Performed By: #### SERIMM ####[facility] LABCLIA [id number] [place] [address] [place] AMERICAIgA [Mass/volume] in Serum or Plasmaon 55-01-8098JsA [Mass/Vol]IgA [Mass/volume] in Serum or Mhiodr06-557 [facility] HospitalIgG [Mass/volume] in Serum or Plasmaon 20-83-0744FdJ [Mass/Vol]IgG [Mass/volume] in Serum or Bgmxrq779-4255GfqtquxboTwin City HospitalIgM [Mass/volume] in Serum or Plasmaon 99-62-6632GrM [Mass/Vol]IgM [Mass/volume] in Serum or Udchjj99-811OmelqwqbhTwin City HospitalImmunoglobulin light chains.kappa.free [Mass/volume] in Serumon 03-18-2024 Immunoglobulin light chains.kappa.free (S) [Mass/Vol]Immunoglobulin light chains.kappa.free [Mass/volume] in Serum3.3-19.4FLancaster Municipal HospitalComment on above:Rarely, increased serum free light chains levels may not be detected or accurately quantified due to prozone phenomenon or in high viscosity samples using this immunoturbidimetric assay. Correlation with other laboratory results and clinical findings is recommended. The [place] Free Light Chain was performed using the Binding Site Optilite immunoturbidimetric method. Result obtained with different assay methods or kits cannot be used interchangeably.Immunoglobulin light chains.kappa.free/Immunoglobulin light chains.lambda.free [Peyman 70-52-9477Zqxwoqcwafjanc light chains.kappa.free/Immunoglobulin light chains.lambda.free (S) [Mass ratio] Immunoglobulin light chains.kappa.free/Immunoglobulin light chains.lambda.free [Mass0.26-1.65T[facility] City HospitalImmunoglobulin light chains.lambda.free [Mass/volume] in Serum or Plasmaon 22-09-4565Ekhkrllxadcqpy light chains.lambda.free [Mass/Vol]Immunoglobulin light chains.lambda.free [Mass/volume] in Serum or Plasma5.7-26.3FLancaster Municipal HospitalComment on above:Rarely, increased serum free light chains levels may not be detected or accurately quantified due to prozone phenomenon or in high viscosity samples using this immunoturbidimetric assay. Correlation with other laboratory results and clinical findings is recommended. The Lambda Free Light Chain was performed using the Binding Site Optilite immunoturbidimetric method. Result obtained with differentassay methods or kits cannot be used interchangeably. KAPPA/MCDUFFIE,FREE,SERon 88-57-0009Dvjlepiiohmdqe light chains.kappa.free (S) [Mass/Vol]13.5 mg/LNormal3.3-19.4Avon HospitalComment on above:Order Comment: Specimen Type: BLOOD SPECIMEN Ordering Facility: [facility] Address: [address] [place], [place] [address]Result Comment: Rarely, increased serum free light chains levels may not be detected or accurately quantified due to prozone phenomenon or in high viscosity samples using this immunoturbidimetric assay. Correlation with other laboratory results and clinical findings is recommended. The [place] Free Light Chain was performed using the Binding Site Optilite immunoturbidimetric method. Result obtained with different assay methods or kits cannot be used interchangeably.Performed By: #### KLFRS #### [facility] CLIA [id number] [address] [place] [address] [place] AMERICAImmunoglobulin light chains.kappa/Immunoglobulin light chains.lambda (S) [Mass ratio]1.30Normal 0.26-1.65Avon HospitalComment on above:Order Comment: Specimen Type: BLOOD SPECIMEN Ordering Facility: [facility] Address: [address] [place], [place] [address]Performed By: #### KLFRS #### [facility] CLIA [id number] [address] [place] [address] [place] AMERICAImmunoglobulin light chains.lambda.free [Mass/Vol]10.4 mg/LNormal5.7-26.3Avon HospitalComment on above:Order Comment: Specimen Type: BLOOD SPECIMEN Ordering Facility: [facility] Address: [address] [place], [place] [address]Result Comment: Rarely, increased serum free light chains levels may not be detected or accurately quantified due to prozone phenomenon or in high viscosity samples using this immunoturbidimetric assay. Correlation with other laboratory results and clinical findings is recommended. The Lambda Free Light Chain was performed using the Binding Site Optilite immunoturbidimetric method. Result obtained with different assay methods or kits cannot be used interchangeably.Performed By: #### KLFRS #### [facility] CLIA [id number] [address] [facility] DESK [address]61[place]CDQ[place] [address] [place] AMERICALaboratory - Hematology and Cell countson 74-65-9846Oyzfviqsyxp/100 WBC (Bld)0.0 %0.0-24.2FLancaster Municipal HospitalLipid 1996 Pnl SerPlon 10-99-5651Iugbnqumaxi [Mass/Vol]136 mg/dL <200T[facility] City HospitalComment on above:Order Comment: Specimen Type: BLOOD SPECIMENOrdering Facility: [facility] Address:[address] [place] [address]Tflgpa Comment: <200 mg/dL, Desirable 200-239 mg/dL, Borderline high >239 mg/dL, HighPerformed By: #### 3016-3, 87399-6, 48186-7 ####[facility]ORYCLIA [id number] [place] [address] [place]<200 mg/dL, Desirable 200-239 mg/dL, Borderline high>239 mg/dL, HighCholesterol in HDL [Mass/Vol]62 mg/dL>39[facility] Comment on above:Order Comment: Specimen Type: BLOOD SPECIMENOrdering Facility: [facility] Address:[address] [place] [address]Zocydk Comment: 40-59 mg/dL, Acceptable >59 mg/dL, High: Negative risk factor for coronary heart disease <40 mg/dL, Low: Positive risk factor for coronary heart diseasePerformed By: #### 3016-3, 01743-1, 51628-5 ####[facility]ORYCLIA [id number] [place] [address] [place] SRMSVUV61-93 mg/dL, Acceptable>59 mg/dL, High: Negative risk factor for coronary heart disease<40 mg/dL, Low: Positive risk factor for coronary heart diseaseTriglyceride [Mass/Vol]87 mg/dL<150T[facility] City HospitalComment on above:Order Comment: Specimen Type: BLOOD SPECIMENOrdering Facility: [facility] Address:[address] [place] [address]Cbyakh Comment: <150 mg/dL, Normal 150-199 mg/dL, Borderline high 200-499 mg/dL, High >499 mg/dL, Very highPerformed By: #### 3016-3, 48267-2, 33480-1 ####[facility]ORYCLIA [id number] [facility] [place] [address] [place]<150 mg/dL, Normal 150-199 mg/dL, Borderline high 200- 499 mg/dL, High>499 mg/dL, Very highLipid 1996 panelon 41-76-7480Tyxsvybgukv in LDL [Mass/Vol]57 mg/dLNormal<100Av HospitalComment on above:Order Comment: Specimen Type: BLOOD SPECIMENOrdering Facility: [facility] Address:[address] [id number] Comment: <100 mg/dL, Optimal 100-129 mg/dL, Near optimal/above optimal 130-159 mg/dL, Borderline high 160-189 mg/dL, High >189 mg/dL, Very high Secondary prevention optimal LDL Cholesterol levels are recommended to be < 70 mg/dLPerformed By: #### 3016-3, 88440-4, 98477-0 ####[facility]ORYCLIA [id number] [facility] AMERICACholesterol in LDL/Cholesterol in HDL [Mass ratio]0.92 {ratio} Normal<2.54[facility] HospitalComment on above:Order Comment: Specimen Type: BLOOD SPECIMENOrdering Facility: [facility] Address:[address] [place], [place] [address]Jzshdc Comment: Reference: 1. National Cholesterol Education Program ATP III Guideline At-A-Glance Quick Desk Reference: National Heart, Lung, and Blood [place]. National Institutes of Health. 2001: NIH Publication No. 01-3305. 2. An International Atherosclerosis Society position paper: global recommendations for the management of dyslipidemia: executive summary, Atherosclerosis. 2014: 232(2):410-413.Performed By: #### 3016-3, 81843-8, 47292- 1 ####[facility]ATORYCLIA [id number] [facility] [place] [address] [place] AMERICACholesterol in VLDL [Mass/Vol]17 mg/dLNormal<30 [facility] HospitalComment on above:Order Comment: Specimen Type: BLOOD SPECIMENOrdering Facility: [facility] Address:[address] [place], [place] [address]Performed By: #### 3016-3, 80085-2, 50391-5 ####[facility]ATORYCLIA [id number] [facility] [place] [address] [place] AMERICACholesterol non HDL [Mass/Vol]74 mg/dLNormal<130[facility] Comment on above:Order Comment: Specimen Type: BLOOD SPECIMENOrdering Facility: [facility] Address:[address] [place], [place] [address]Result Comment: <130 mg/dL, Optimal 130-159 mg/dL, Near optimal/above optimal 160-189 mg/dL, Borderline high 190-219 mg/dL, High >219 mg/dL, Very high Secondary prevention optimal non HDL Cholesterol levels are recommended to be <100 mg/dLPerformed By: #### 3016-3, 12291-7, 94055-8 ####[facility]ATORYCLIA [id number] [facility] [place] [address] [place] AMERICACholesterol.total/Cholesterol in HDL [Mass ratio]2.19 {ratio} Normal<5.10[facility] HospitalComment on above:Order Comment: Specimen Type: BLOOD SPECIMENOrdering Facility: [facility] Address:[address] [place] [address]Rkbpswtlp By: #### 3016-3, 28557-0, 71196-8 ####[facility]ATORYCLIA [id number] [facility] [place] [address] [place] AMERICAFASTING TIME13 hrsNormalAvo HospitalComment on above:Order Comment: Specimen Type: BLOOD SPECIMENOrdering Facility: [facility] Address:[address] [place], [place] [address]Performed By: #### 3016- 3, 87085-0, 01088-4 ####[facility]ATORYCLIA [id number] [place] [address] [place] AMERICAMethylmalonate SerPl-sCncon 76-85-2291Hwqsmpqxsldrks [Moles/Vol]0.20 umol/LNormal<=0.40[facility] HospitalComment on above:Order Comment: Specimen Type: BLOOD SPECIMENOrdering Facility: [facility] Address:[address] [place], [place] [address]Result Comment: This test was developed, and its performance characteristics determined by the [facility] Department of Pathology and Laboratory Medicine. It has not been cleared or approved bythe FDA. The [facility] Department of Pathology and Laboratory Medicine is regulated under CLIA as qualified to perform high-complexity testing. This test is used for clinical purposes. It should not be regarded as investigational or for research.Performed By: #### 96551-5 ####[facility] LABCLIA [id number] [place] [address] [place] AMERICANo Panel Informationon 52-32-5663Fimpf Monoclonal InterpretationTwin City HospitalUrine Monoclonal ProteinAbnormalNo M protein is identified.Twin City HospitalUrine Monoclonal Staff ReviewReviewed by Qian Hogan M.D.Twin City HospitalAlkaline Phosphatase Iso-Bone %22.8 %10.7-68.3FLancaster Municipal HospitalAlkaline Phosphatase Iso-Liver %77.2 %26.0-86.2FLancaster Municipal HospitalEstimated GFR (CKD-EPI)104 mL/min/1.73m???>=60T[facility] City HospitalComment on above:Estimated Glomerular Filtration Rate (eGFR) is calculated using the 2020 CKD-EPI creatinine equation. This equation utilizes serum creatinine, sex, and age as parameters. The creatinine assay has traceable calibration to isotope dilution-mass spectrometry. Refer to KDIGO guidelines for clinical interpretation. In patients with unstable renal function, e.g. those with acute kidney injury, the eGFRmay not accurately reflect actual GFR.Fasting Jxbzhh96 hrsTwin City Hospital Leuk/Lymph Sign Pathologist (Misc)Reviewed by Qian Hogan M.D.Twin City HospitalNon-HDL Fulsjlwvntf71 mg/dL<130Twin City HospitalComment on above:<130 mg/dL, Optimal 130-159 mg/dL, Near optimal/above optimal 160-189 mg/dL, Borderline high 190-219 mg/dL, High>219 mg/dL, Very highSecondary prevention optimal non HDL Cholesterol levels are recommended to be <100 mg/dLPosaconazole Level2.5 ug/mL0.7-3.9[facility] Comment on above:Ranges are based on trough draw at steady-state concentration.Therapeutic: >0.9 ug/mLProphylactic: >0.6 ug/mLToxic: >3.9 ug/mLThe therapeutic, prophylactic, and toxic ranges were based on the 2016 Infectious Disease Society of [place]'s (IDSA) Clinical Practice Guidelines for the Management of Aspergillosis and Candidiasis and consultation from [facility] Department of InfectiousDisease.Reference ranges and high/low indicator flags are provided as general guidelines only. The treating physician must determine appropriate target levels/dosing based on the specific clinical sit uation.This test was developed, and its performance characteristics determined by the [facility] Department of Pathology and Laboratory Medicine. It has not been cleared or approved by the FDA.The [facility] Department of Pathology and Laboratory Medicine is regulated under CLIA as qualified to perform high-complexity testing. This test is used for clinical purposes. It should not beregarded as investigational or for research.Serum ImmunofixationNo M protein is identified.No M protein is identified.T[facility] City HospitalPOSACONAZOLE, SERUMon 92-17-8112Qudsfbltsojw [Mass/Vol]2.5 ug/mLNormal 0.7-3.9[facility]on HospitalComment on above:Order Comment: Specimen Type: BLOOD SPECIMENOrdering Facility: [facility] Address:[address] [place] [address]Swgexa Comment: Ranges are based on trough draw at steady- state concentration. Therapeutic: >0.9 ug/mL Prophylactic: >0.6 ug/mL Toxic: >3.9 ug/mL The therapeutic, prophylactic, and toxic ranges were based on the 2016 Infectious Disease Society of [place]'s (IDSA) Clinical Practice Guidelines for the Management of Aspergillosis and Candidiasis and consultation from [facility] Department of Infectious Disease. Reference ranges and high/low indicator flags are provided as general guidelines only. The treatingphysician must determine appropriate target levels/dosing based on the specific clinical situation. This test was developed, and its performance characteristics determined by the [facility] Department of Pathology and Laboratory Medicine. It has not been cleared or approved by the FDA. The [facility] Department of Pathology and Laboratory Medicine is regulated under CLIA as qualified to perform high-complexity testing. This test is used for clinical purposes. It should not be regarded as investigational or for research.Performed By: #### POSACN ####[facility] LABCLIA [id number] [place] [address] [place] AMERICAProtein [Mass/volume] in Serum or Plasmaon 39-99-4738Qjvbrrz [Mass/Vol]Protein [Mass/volume] in Serum or Plasma 6.3-8.0Peoples Hospitalerum or plasma anion gap determination on 46-95-0952Uignk gap [Moles/Vol]Serum or plasma anion gap determination8-15 Peoples Hospitalerum or plasma bone alkaline phosphatase/total alkaline phosphatase ratioon 10-25-6916YKQ Bone [Catalytic fraction]Serum or plasma bone alkaline phosphatase/total alkaline phosphatase ratio12.9-52.6 Peoples Hospitalerum or plasma intestinal alkaline phosphatase/total alkaline phosphatase ratio (mega 98-78-4041JUZ Intest [Catalytic fraction]Serum or plasma intestinal alkaline phosphatase/total alkaline phosphatase ratio (cat0.0-16.3FTriHealtherum or plasma methylmalonate measurement (moles/volume)on 85-54-1811Fofylysnnmfgeu [Moles/Vol]Serum or plasma methylmalonate measurement (moles/volume)<=0.40 Twin City HospitalComment on above:This test was developed, and its performance characteristics determined by the [facility] Department of Pathology and Laboratory Medicine. It has not been cleared or approved by the FDA. The [facility] Department of Pathology and Laboratory Medicine is regulated under CLIA as qualified to perform high-complexity testing. This test is used for clinical purposes. It should not be regarded as investigational or for research.Serum or plasma total cholesterol/high density lipoprotein (HDL) cholesterol mass kuldip 89-56-0194Xpuyhtfwpxz.total/Cholesterol in HDL [Mass ratio]Serum or plasma total cholesterol/high density lipoprotein (HDL) cholesterol mass rat<5.10T[facility] City HospitalTSH SerPl-aCncon 90-33-5102ZRB Qn1.110 m[IU]/L0.270-4.200Twin City HospitalComment on above:Order Comment: Specimen Type: BLOOD SPECIMEN [facility]ing Facility: [facility] Address: [address] [place], [place] [address]Performed By: #### 3016-3, 37179-9, 64061-2 #### [facility] CLIA [id number] [place] [address] [place] OF AMERICATotal alkaline phosphatase measurement with isoenzyme panelon 91-32-4416XHY Iso PnlTotal alkaline phosphatase measurement with isoenzyme bzmxlWqza86.0-69.3FLancaster Municipal Hospital VITAMIN B12on 23-34-6416Xlaqfxbsp (Vitamin B12) [Mass/Vol]555 pg/mL232 - 1245 pg/mLCleveland ClinicVit B12 SerPl-mCncon 90-77-8909Tizpuwcqv (Vitamin B12) [Mass/Vol]555 pg/mI421-7498NzoaguxxaTwin City HospitalComment on above: Order Comment: Specimen Type: BLOOD SPECIMEN [facility]ing Facility: [facility] Address: [address] [place], [place] [address]Performed By: #### 2132-9 #### [facility] CLIA [id number] [place] [address] [place] OF AMERICABasophils Auto (Bld) [#/Vol]on 03-05-2024 Basophils (Bld) [#/Vol]Automated basophil count0.0-0.1FLancaster Municipal HospitalBasophils/100 WBC Auto (Bld)on 98-44-2070Ymapballd/100 WBC (Bld)Automated basophil %0.2-2.0T[facility] City HospitalEosinophils/100 WBC Auto (Bld)on 98-13-7480Nbwjzgbqddp/100 WBC (Bld)Automated eosinophil %0.9-7.0 [facility] HospitalErythrocyte distribution width Auto (RBC) [Ratio]on 71-62-8780Oesheomjivd distribution width (RBC) [Ratio]Erythrocyte distribution width [Ratio] by Automated count11.0-15.0T[facility] City HospitalEstimated glomerular filtration rate (GFR) non- Americanon 48-12-6542QWK/1.73 sq M.predicted among non-blacks MDRD (S/P/Bld) [Vol rate/Area]Estimated glomerular filtration rate (GFR) non->=60 mL/min/1.73m 2FLancaster Municipal HospitalGlobulin Calc (S) [Mass/Vol]on 33-50-8111Towmcvxh (S) [Mass/Vol]Serum globulin measurement by calculation (mass/volume)Twin City HospitalHematocrit Auto (Bld) [Volume fraction]on 30-71-0655Cviiwgsrxb (Bld) [Volume fraction]Hematocrit [Volume Fraction] of Blood by Automated shhlcPty69.0-48.0T[facility] City HospitalHemoglobin [Mass/volume] in Bloodon 01-13-3794Qgsmrfqauc (Bld) [Mass/Vol] Hemoglobin [Mass/volume] in DhifnKma20.0-16.0[facility] Laboratory - Chemistry and Chemistry - challengeon 57-24-7892Lxqjjgl [Mass/Vol] 3.1 g/dLLow3.4-5.0[facility] HospitalALP [Catalytic activity/Vol] 111 U/C99-971JucnkstbyTwin City HospitalALT [Catalytic activity/Vol]25 U/L 14-59T[facility] HospitalAST [Catalytic activity/Vol]22 U/L15-37 [facility] HospitalBilirubin [Mass/Vol]0.3 mg/dL0.2-1.0[facility] HospitalCalcium [Mass/Vol]8.9 mg/dL8.5-10.1FLancaster Municipal HospitalChloride [Moles/Vol]107 mmol/W02-102QwjkihfiqTwin City HospitalCO2 [Moles/Vol]32.5 mmol/LHigh21.0-32.0[facility] Creatinine [Mass/Vol]0.74 mg/dL0.55-1.02[facility] GFR/1.73 sq M.predicted MDRD (S/P/Bld) [Vol rate/Area]mL/min/{1.73_m2}>=60 mL/min/1.73m 2FLancaster Municipal HospitalGlucose [Mass/Vol]76 mg/oC84-605 [facility] HospitalNatriuretic peptide B (Bld) [Mass/Vol]189.0 pg/mL<=900.0[facility] HospitalPotassium [Moles/Vol]3.8 mmol/L 3.5-5.1FLancaster Municipal HospitalProtein [Mass/Vol]6.3 g/dLLow6.4-8.2 Peoples Hospitalodium [Moles/Vol]147 mmol/XSejq998-500 [facility] HospitalUrea nitrogen [Mass/Vol]20.0 mg/dLHigh7.0-18.0 [facility] HospitalUrea nitrogen/Creatinine [Mass ratio]27.0 mg/mg [facility] HospitalLaboratory - Hematology and Cell countson 03-92-9509Qfnogdem granulocytes/100 WBC (Bld)0.2 %0.0-0.5FLancaster Municipal HospitalLeukocytes [#/volume] corrected for nucleated erythrocytes in Blood by Automated counon 87-52-0755WEO corrected for nucl RBC Auto (Bld) [#/Vol]Leukocytes [#/volume] corrected for nucleated erythrocytes in Blood by Automated coun4.0-11.0[facility] HospitalLymphocytes Auto (Bld) [#/Vol]on 39-76-6680Gtgjeaqmeti (Bld) [#/Vol]Lymphocytes [#/volume] in Blood by Automated countLow1.2-3.8T[facility] City HospitalLymphocytes/100 WBC Auto (Bld)on 39-48-2769Dsvwdpecgeo/100 WBC (Bld)Lymphocytes/100 leukocytes in Blood by Automated wkgmpGdt87.5-60.0[facility] CenterH Auto (RBC) [Entitic mass]on 42-67-2753ZME (RBC) [Entitic mass]MCH [Entitic mass] by Automated count26.7-34.0T[facility] City HospitalMCHC Auto (RBC) [Mass/Vol]on 35-15-3684LPKX (RBC) [Mass/Vol]MCHC [Mass/volume] by Automated count29.9-35.2FLancaster Municipal HospitalMCV Auto (RBC) [Entitic vol]on 36-69-8725HRY (RBC) [Entitic vol]MCV [Entitic volume] by Automated count 81.0-99.0T[facility] HospitalMonocytes Auto (Bld) [#/Vol]on 83-00-5898Iqhylulpu (Bld) [#/Vol]Automated blood monocyte count0.3-0.8[facility] HospitalMonocytes/100 WBC Auto (Bld)on 16-50-9484Mrdnmzrpb/100 WBC (Bld)Automated monocyte %1.7-12.0[facility] Neutrophils Auto (Bld) [#/Vol]on 57-44-5746Exjucedbjku (Bld) [#/Vol]Neutrophils [#/volume] in Blood by Automated count1.4-6.5FLancaster Municipal Hospital Neutrophils/100 WBC Auto (Bld)on 61-87-3532Lldfcozhpkp/100 WBC (Bld)Automated neutrophil %43.0-75.0[facility] HospitalNo Panel Informationon 31-37-2089Kfyaenvamnz # (Auto)0.1 10 3/uL0.0-0.7FLancaster Municipal HospitalImmature Granulocyte # (Auto)0.01 10 3/uL0.00-0.03T[facility] City HospitalPlatelet mean volume Auto (Bld) [Entitic vol]on 09-29-1694Osdzuuzu mean volume (Bld) [Entitic vol]Platelet mean volume [Entitic volume] in Blood by Automated countLow9.5-13.5FLancaster Municipal HospitalPlatelets Auto (Bld) [#/Vol]on 06-12-3546Efprouqql (Bld) [#/Vol]Platelets [#/volume] in Blood by Automated -406BhzkcznniTwin City HospitalRBC Auto (Bld) [#/Vol]on 76-09-4994NEE (Bld) [#/Vol]Erythrocytes [#/volume] in Blood by Automated count Low4.20-5.40Peoples Hospitalerum or plasma albumin/globulin mass ratioon 25-72-9509Fnzdwbn/Globulin [Mass ratio]Serum or plasma albumin/globulin mass ratioPeoples Hospitalerum or plasma anion gap determinationon 17-89-3576Uutfr gap [Moles/Vol]Serum or plasma anion gap determinationOhioHealth Marion General Hospital NOTEon 63-69-5126RC NOTEHNO ID: [id number] Author: TERI ROSS RN Service: ? Author Type: Registered Nurse Type: ED Notes Filed: 02/08/2024 04:28 Note Text: Report given to MM.. Pt stable and left in stretcher with transport.[facility] HospitalED NOTEHNO ID: [id number] Author: TERI ROSS RN Service: ? Author Type: Registered Nurse Type: ED Notes Filed: 02/08/2024 03:08 Note Text: Report called back to facility. Updated nurse of transport eta.[facility] HospitalHIGH SENSITIVITY TROPONIN T (SECOND)on 78-11-3662Wuqlcynw T.cardiac High sensitivity method [Mass/Vol]12 ng/LHigh<12Av HospitalComment on above:Order Comment: Specimen Type: BLOOD SPECIMEN [facility]ing Facility: [facility] Address: [address] [place], [place] [address]Performed By: #### [id number] #### [facility] CLIA [id number] [place] [address] [place] [facility] SENSITIVITY TROPONIN T (THIRD) 3 HRS AFTER INITIALon 68-04-7046Bplbaeij T.cardiac High sensitivity method [Mass/Vol] 12 ng/LHigh<12Cottonwood HospitalComment on above:Order Comment: Specimen Type: BLOOD SPECIMENOrdering Facility: [facility] Address:[address] [place], [place] [address]Performed By: #### [id number] ####[facility] LABORATORYCLIA [id number] [place] [address] [place]ICANo Panel Informationon 64-44-0096Enxbxnst T Hi Sens Cardiac Bhkgdxdc56 ng/LHigh<12 [facility] HospitalBasophils Auto (Bld) [#/Vol]on 02-07-2024 Basophils (Bld) [#/Vol]Automated basophil count<0.11[facility] HospitalBasophils/100 WBC Auto (Bld)on 96-05-5328Cxrdvgrke/100 WBC (Bld)Automated basophil %[facility] HospitalBlood manual differential comment interpretation narrativeon 32-52-1181Lekdws differential comment Reymundo (Bld) [Interp]Blood manual differential comment interpretation narrativeTwin City HospitalCBC W Auto Differential panel (Bld)on 69-01-3144Aafanqatj (Bld) [#/Vol]0.04 10*3/uLNormal<0.11Avon HospitalComment on above:Order Comment: Specimen Type: BLOOD SPECIMENOrdering Facility: [facility] Address:[address] [place], [place] [address]Performed By: #### 03919- 8 ####[facility] [id number] [place] [address] [place] AMERICABasophils/100 WBC (Bld)0.8 %NormalAv Hospital Comment on above:Order Comment: Specimen Type: BLOOD SPECIMENOrdering Facility: [facility] Address:[address] [place] [address] Performed By: #### 25119-3 ####[facility] [id number] [place] [address] [place] AMERICADifferential cell count method Nom (Bld)AutoNormalAvon HospitalComment on above:Order Comment: Specimen Type: BLOOD SPECIMENOrdering Facility: [facility] Address:[address] [place], [place] [address]Performed By: #### 35869-8 ####[facility] LABORATORYIA [id number] [place] [address] [place] AMERICAEosinophils (Bld) [#/Vol]0.11 10*3/uLNormal<0.46Avon HospitalComment on above:Order Comment: Specimen Type: BLOOD SPECIMENOrdering Facility: [facility] Address:[address] [place], [place] [address]Performed By: #### 40464-7 ####[facility] [id number] [place] [address] [place] AMERICAEosinophils/100 WBC (Bld)2.3 %NormalCottonwood HospitalComment on above:Order Comment: Specimen Type: BLOOD SPECIMENOrdering Facility: [facility] Address:[address] [place], [place] [address]Performed By: #### 77501-9 ####[facility] [id number] [place] [address] [place] AMERICAErythrocyte distribution width (RBC) [Ratio]16.1 %High11.5-15.0 Cottonwood HospitalComment on above:Order Comment: Specimen Type: BLOOD SPECIMENOrdering Facility: [facility] Address:[address] [place], [place] [address]Performed By: #### 66672-3 ####[facility] [id number] [place] [address] [place] Hematocrit (Bld) [Volume fraction]39.2 %Fzbovn29.0-46.0Av HospitalComment on above:Order Comment: Specimen Type: BLOOD SPECIMENOrdering Facility: [facility] Address:[address] [place], [place] [address]Performed By: #### 48939-8 ####[facility] [id number] [place] [address] [place] AMERICAHemoglobin (Bld) [Mass/Vol]12.5 g/dL Loqkav90.5-15.5[facility] HospitalComment on above:Order Comment: Specimen Type: BLOOD SPECIMENOrdering Facility: [facility] Address:[address] [place], [place] [address]Performed By: #### 05510-9 ####[facility] [id number] [place] [address] [place] Immature granulocytes (Bld) [#/Vol]0.03 10*3/uLNormal<0.10Avon HospitalComment on above:Order Comment: Specimen Type: BLOOD SPECIMENOrdering Facility: [facility] Address:[address] [place] [address] Performed By: #### 77102-8 ####[facility]ENTERIA [id number] [place] [address] [place] AMERICAImmature granulocytes/100 WBC (Bld)0.6 %NormalAv HospitalComment on above:Order Comment: Specimen Type: BLOOD SPECIMENOrdering Facility: [facility] Address:[address] [place], [place] [address]Performed By: #### 23314- 8 ####[facility]ENTERIA [id number] [place] [address] [place] [facility] MEDICAL CENTERLymphocytes (Bld) [#/Vol]1.37 10*3/uLNormal 1.00-4.00C[facility]tonwood HospitalComment on above:Order Comment: Specimen Type: BLOOD SPECIMENOrdering Facility: [facility] Address:[address] [place], [place] [address]Performed By: #### 50344-1 ####[facility]ENTERIA [id number] [place] [address] [place] Lymphocytes/100 WBC (Bld)28.8 %NormalCottonwood HospitalComment on above:Order Comment: Specimen Type: BLOOD SPECIMENOrdering Facility: [facility] Address:[address] [place], [place] [address]Performed By: #### 83178- 8 ####[facility]ENTERIA [id number] [place] [address] [place] AMERICAMCH (RBC) [Entitic mass]29.6 zfBcgywq28.0-34.0 [facility] HospitalComment on above:Order Comment: Specimen Type: BLOOD SPECIMENOrdering Facility: [facility] Address:[address] [place], [place] [address]Performed By: #### 99939-2 ####[facility] LABORATORYIA [id number] [place] [address] [place] MCHC (RBC) [Mass/Vol]31.9 g/sGLmsipo23.5-36.0Av HospitalComment on above:Order Comment: Specimen Type: BLOOD SPECIMENOrdering Facility: [facility] Address:[address] [place], [place] [address]Performed By: #### 52324- 8 ####[facility] LABORATORYIA [id number] [place] [address] [place] AMERICAMCV (RBC) [Entitic vol]92.9 sGPtcivb63.0-100.0 [facility] HospitalComment on above:Order Comment: Specimen Type: BLOOD SPECIMENOrdering Facility: [facility] Address:[address] [place], [place] [address]Performed By: #### 84099-8 ####[facility] [id number] [place] [address] [place] Monocytes (Bld) [#/Vol]0.55 10*3/uLNormal<0.87Av HospitalComment on above: Order Comment: Specimen Type: BLOOD SPECIMENOrdering Facility: [facility] Address:[address] [place], [place] [address]Performed By: #### 34307- 8 ####[facility] [id number] [place] [address] [place] AMERICAMonocytes/100 WBC (Bld)11.6 %NormalAv HospitalComment on above:Order Comment: Specimen Type: BLOOD SPECIMENOrdering Facility: [facility] Address:[address] [place], [place] [address]Performed By: #### 86855-1 ####[facility] LABORATORYIA [id number] [place] [address] [place] AMERICANeutrophils (Bld) [#/Vol]2.65 10*3/uLNormal1.45-7.50Av HospitalComment on above:Order Comment: Specimen Type: BLOOD SPECIMENOrdering Facility: [facility] Address:[address] [place], [place] [address]Performed By: #### 18121-2 ####[facility] LABORATORYIA [id number] [place] [address] [place] AMERICANeutrophils/100 WBC (Bld)55.9 %NormalCottonwood Hospital Comment on above:Order Comment: Specimen Type: BLOOD SPECIMENOrdering Facility: [facility] Address:[address] [place] [address] Performed By: #### 12698-0 ####[facility]ENTERIA [id number] [place] [address] [place] AMERICANucleated RBC (Bld) [#/Vol]10*3/uLNormal<0.01Avon HospitalComment on above:Order Comment: Specimen Type: BLOOD SPECIMENOrdering Facility: [facility] Address:[address] [place], [place] [address]Performed By: #### 44137-0 ####[facility]ENTERIA [id number] [place] [address] [place] AMERICANucleated RBC/100 WBC (Bld) [Ratio]0.0 /100 WBCNormalAvon HospitalComment on above:Order Comment: Specimen Type: BLOOD SPECIMENOrdering Facility: [facility] Address:[address] [place], [place] [address]Performed By: #### 95197-8 ####[facility]ENTERIA [id number] [facility] [place] [address] [place] AMERICAPlatelet mean volume (Bld) [Entitic vol]9.0 fLNormal9.0-12.7Avon HospitalComment on above: Order Comment: Specimen Type: BLOOD SPECIMENOrdering Facility: [facility] Address:[address] [place], [place] [address]Performed By: #### 02338- 8 ####[facility] LABORATORYIA [id number] [facility] [place] [address] [place] AMERICAPlatelets (Bld) [#/Vol]274 10*3/jRGfuxgv509-552 [facility] HospitalComment on above:Order Comment: Specimen Type: BLOOD SPECIMENOrdering Facility: [facility] Address:[address] [place] [address]Ixunxpfnu By: #### 41857-5 ####[facility] LABORATORYIA [id number] [place] [address] [place] [facility]INE HOSPITALRB (Bld) [#/Vol]4.22 10*6/uLNormal3.90-5.20[facility] HospitalComment on above:Order Comment: Specimen Type: BLOOD SPECIMENOrdering Facility: [facility] Address:[address] [place], [place] [address]Performed By: #### 02779- 8 ####[facility]ENTERIA [id number] [place] [address] [facility] (d) [#/Vol]4.75 10*3/uLNormal3.70-11.00 [facility] HospitalComment on above:Order Comment: Specimen Type: BLOOD SPECIMENOrdering Facility: [facility] Address:[address] [place], [place] [address]Performed By: #### 33939-7 ####[facility] [id number] [place] [address] [place] MARINE HOSPITALCT BRAIN WO IVCONon [id number] BRAIN WO IVCON* * *Final Report* * * DATE OF EXAM: Feb 07 2024 11:42PM [facility] 0504 - CT BRAIN WO IVCON / PROCEDURE REASON: Mental status change, unknown cause * * * * Physician Interpretation * * * * EXAMINATION: CT BRAIN WO IVCON CLINICAL HISTORY: Mental status change, unknown cause, vertigo, fatigue, brain fog after shunt turned back on a month ago. . TECHNIQUE: Routine CT of the brain without IV contrast. CT Dose-Length Product (DLP): 778 mGy*cm CT Dose Reduction Employed: Iterative recon; COMPARISON: 01/10/[address] RESULT: Post-operative change: Reidentified right-sided transparietal approach the discretion catheter which enters the RIGHT lateral ventricular body and terminates in the anterior horn (now against the corpus callosum). Old right-sided frontal maría hole defect also reidentified. Acute change: No evidence of a sizable/large acute territorial brain infarct/parenchymal edema. MRI may be considered as a more sensitive modality if continued clinical concern/warranted. Hemorrhage: No evidence of acute intracranial hemorrhage. Minimal linear hyperdensity in the third ventricle appears reflective of incidental choroid plexus calcifications. Mass Lesion / Mass Effect: There is no evidence of a sizable brain mass. No significant mass effect or extra-axial fluid collection. Chronic changes, including parenchymal: Intracranial arterial wall calcifications. Reidentified nonspecific small linear cystic area in the right-sided parietal white matter such as with lacunar infarction or perivascular space prominence. Also reidentified small area of hypodensity/remote insult in the right-sided frontal lobe (superior/middle gyri anteriorly) likely along a prior catheter course. Minimal hypodensity also suggested along the right-sided parietal catheter course. Scattered patchy foci of low attenuation are present within supratentorial white matter, which is nonspecific, but most commonly on the basis of mild microvascular ischemia. There is minimal generalized cerebral volume loss. Ventricles: Shunt catheters above. No hydrocephalus. Interval marked reduction in ventricular sizes, now with slitlike appearance of the third and the RIGHT lateral ventricle (clinical correlation to exclude segmental over shunting). The LEFT lateral and fourth ventricles are also small. Previously there is mild-moderate supratentorial and mild infratentorial ventriculomegaly. Bifrontal horn diameter measures currently 31 mm, previously 41 mm and third ventricle is mostly collapsed, previously 6 mm in diameter. Visualized paranasal sinuses: Partially imaged. Mild mucosal thickening in the right-sided sphenoid sinus (with mild chronic reactive wall changes), as before, and minimal elsewhere. Also reidentified nonspecific small slightly irregular opacity in the right-sided sphenoid sinus. Other: No depressed skull fracture is seen. The skull base shows some osteopenia. Risk And Insurance Consultant (topogram) images: Non-diagnostic. IMPRESSION: Brain CT shows no evidence of acute intracranial bleeding or of a sizable/large acute brain parenchymal abnormality. Shunted ventricles with interval significant size reduction, now with areas of slitlike appearance (which should be correlated clinically to exclude over shunting). No hydrocephalus. Mild chronic brain parenchymal changes and other details as above. Laundry Aid: SUMA Transcribe Date/Time: Feb 08 2024 1:06A Dictated by : ADELINA VILLA MD This examination was interpreted and the report reviewed and electronically signed by: ADELINA VILLA MD on Feb 08 2024 1:13AM EST [id number] HospitalComprehensive metabolic 2000 panelon 56-73-6422Pzuhnaa [Mass/Vol]4.1 g/dLNormal3.9-4.9Avon HospitalComment on above: Order Comment: Specimen Type: BLOOD SPECIMEN Ordering Facility: [facility] Address: [address] [place], [place] [address]Performed By: #### 18208-1, #### [facility] CLIA [id number] [place] [address] [place] AMERICAALP [Catalytic activity/Vol]141 U/LHigh 34-123Cottonwood HospitalComment on above:Order Comment: Specimen Type: BLOOD SPECIMEN Ordering Facility: [facility] Address: [address] [place], [place] [address]Performed By: #### 04527-5, 74280-5 #### [facility] CLIA [id number] [address] [place] [address] [place] AMERICAALT [Catalytic activity/Vol]19 U/LNormal 7-38Cottonwood HospitalComment on above:Order Comment: Specimen Type: BLOOD SPECIMEN Ordering Facility: [facility] Address: [address] [place], [place] [address]Performed By: #### 92272-8, 45106-0 #### [facility] CLIA [id number] [address] [place] [address] [place] AMERICAAnion gap [Moles/Vol]9 mmol/LNormal8-15 Cottonwood HospitalComment on above:Order Comment: Specimen Type: BLOOD SPECIMEN Ordering Facility: [facility] Address: [address] [place], [place] [address]Performed By: #### 00682-4, 81591-2 #### [facility] CLIA [id number] [address] [place] [address] [place] AMERICAAST [Catalytic activity/Vol]14 U/LNormal 13-35Av HospitalComment on above:Order Comment: Specimen Type: BLOOD SPECIMEN Ordering Facility: [facility] Address: [address] [place], [place] [address]Performed By: #### 11031-4, #### [facility] CLIA [id number] [address] [place] [address] [place] AMERICABilirubin [Mass/Vol]0.2 mg/dLNormal 0.2-1.3Avon HospitalComment on above:Order Comment: Specimen Type: BLOOD SPECIMEN Ordering Facility: [facility] Address: [address] [place], [place] [address]Performed By: #### 87448-1, #### [facility] CLIA [id number] [address] [place] [address] [place] AMERICACalcium [Mass/Vol]9.5 mg/dLNormal8.5-10.2 Cottonwood HospitalComment on above:Order Comment: Specimen Type: BLOOD SPECIMEN Ordering Facility: [facility] Address: [address] [place], [place] [address]Performed By: #### 44726-0, #### [facility] CLIA [id number] [address] [place] [address] [place] AMERICAChloride [Moles/Vol]104 mmol/LNormal 98-107Av HospitalComment on above:Order Comment: Specimen Type: BLOOD SPECIMEN Ordering Facility: [facility] Address: [address] [place] [address]Kwtqecjhp By: #### 54600-5, #### [facility] CLIA [id number] [address] [place] [address] [place] AMERICACO2 [Moles/Vol]30 mmol/KNkmrts28-76Mmkg HospitalComment on above:Order Comment: Specimen Type: BLOOD SPECIMEN Ordering Facility: [facility] Address: [address] [place], [place] [address]Performed By: #### 11542-7, #### [facility] CLIA [id number] [address] [place] [address] [place] AMERICACreatinine [Mass/Vol]0.71 mg/dLNormal 0.58-0.96Cottonwood HospitalComment on above:Order Comment: Specimen Type: BLOOD SPECIMEN Ordering Facility: [facility] Address: [address] [place], [place] [address], [place] [address]Zkktixnps By: #### 56252-2, #### [facility] CLIA [id number] [address] [place] [address] [place] AMERICACreatinine and Glomerular filtration rate.predicted panel (S/P/Bld)99 mL/min/1.73m???Normal>=60Av HospitalComment on above:Order Comment: Specimen Type: BLOOD SPECIMEN Ordering Facility: [facility] Address: [address] [place] [address]Ckwfdy Comment: Estimated Glomerular Filtration Rate (eGFR) is calculated using the 2020 CKD-EPI cre atinine equation. This equation utilizes serum creatinine, sex, and age as parameters. The creatinine assay has traceable calibration to isotope dilution- mass spectrometry. Refer to KDIGO guidelines for clinical interpretation. In patients with unstable renal function, e.g. those with acute kidney injury, the eGFR may not accurately reflect actual GFR.Performed By: #### 12352-1, #### [facility] CLIA [id number] [address] [place] [address] [place] AMERICAGlucose [Mass/Vol]102 mg/vYRppw78-65Tnmx HospitalComment on above:Order Comment: Specimen Type: BLOOD SPECIMEN Ordering Facility: [facility] Address: [address] [place], [place] [address]Sqhglk Comment: The [place] Diabetes Association (ADA) provides guidance for cutoff [...] Standards of Medical Care in Diabetes 2016, [place] Diabetes Association. Diabetes Care. 2016.39(Suppl 1).Performed By: #### 24302-6, #### [facility] CLIA [id number] [address] [place] [address] [place] AMERICAPotassium [Moles/Vol]3.9 mmol/LNormal 3.7-5.1[facility] HospitalComment on above:Order Comment: Specimen Type: BLOOD SPECIMEN Ordering Facility: [facility] Address: [address] [place], [place] [address]Performed By: #### 58655-7, #### [facility] CLIA [id number] [place] [address] [place] AMERICAProtein [Mass/Vol]6.7 g/dLNormal6.3-8.0 [facility] HospitalComment on above:Order Comment: Specimen Type: BLOOD SPECIMEN Ordering Facility: [facility] Address: [address] [place], [place] [address]Performed By: #### 10215-9, #### [facility] CLIA [id number] [place] [address] [place] AMERICASodium [Moles/Vol]143 mmol/NCiedeu369-822 [facility]wood HospitalComment on above:Order Comment: Specimen Type: BLOOD SPECIMEN Ordering Facility: [facility] Address: [address] [place], [place] [address]Performed By: #### 27380-5, #### [facility] CLIA [id number] [place] [address] [place] AMERICAUrea nitrogen [Mass/Vol]26 mg/dLHigh7-21 [facility] HospitalComment on above:Order Comment: Specimen Type: BLOOD SPECIMEN Ordering Facility: [facility] Address: [address] [place], [place] [address]Nehnqhtft By: #### 46706-7, 79265-6 #### [facility] CLIA [id number] [address] [place] [address] [place] AMERICAECG COMPLETEon 69-51-0640HYB COMPLETE Ventricular Rate : 85 BPM Atrial Rate : 85 BPM P-R Interval : 148 ms QRS Duration : 125 ms Q-T Interval : 385 ms QTC Calculation(Bazett) : 458 ms Calculated P [place] : 68 degrees Calculated R [place] : 43 degrees Calculated T [place] : 44 degrees Sinus rhythm Nonspecific intraventricular conduction delay Abnormal ECG no stemi 2311 Confirmed by SPENCER MONTGOMERY DO ([id number]), state editor DENYS CHIN (1941) on 02/08/2024 10:58:08 AM NAME : CHIKIS TOBAR PID : [id number] : 1965 Gender : Female Race : ORD : [id number] Procedure Date : Feb 07 2024 23:01:42 Edit Date : Feb 08 2024 10:58:13 Diagnosis: Sinus rhythm Nonspecific intraventricular conduction delay Abnormal ECG no stemi 2311 Confirmed by SPENCER MONTGOMERY DO ([id number]), state editor DENYS CHIN (1941) on 02/08/2024 10:58:08 AM Test Reason : Chest Pain Location : 302 : ED AVED-10 Overread By : SPENCER MONTGOMERY DO Edited By : DENYS CHIN Referred By : , Acquired by : [id number],[facility] NOTEon 63-24-4700SM NOTEHNO ID: [id number] Author: LUIZ MEANS, ALISTAIR Service: Emergency Medicine Author Type: Registered Nurse Type: ED Notes Filed: 02/07/2024 22:45 Note Text: Patient presents to ED via EMS for evaluation of dizziness and bilateral vision changes starting around 2144. Patient at [facility] for rehab post shunt surgery and LT leg fracture. Hx of vertigo but states this seems different. BS 110. HYEUDf0PyaqryCmeo HospitalED NOTEHNO ID: [id number] Author: TERI ROSS RN Service: ? 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 Has a hx of vertigo that is typically accompanied by n/v, but none this time. Overall feels fatigued and like her eyes aren't functioning right. Vision is ok, but bright lights seem to make it feel like the room is shifting. Bilateral eyes affected. Denies SHANNON, photophobia, neck pain/trauma, extremity numbness/weakness, speech difficulty, fevers, AP, CP. She says her shunt was re-implanted 4 months ago and they have been making changes to it recently. PAST MEDICAL HISTORY Diagnosis Date Asthma 02/16/2021 Bladder cancer (HCC) 02/2021 urothelial carcinoma Diabetes mellitus type 1 (HCC) 04/13/2021 diagnosed at age 6 Fracture of tibia 09/2023 HTN (hypertension) 02/16/2021 Meningitis 2022 Patient reported shunt placement (with subsequent removal and re-placement in September,) Neoplasm of bladder 02/16/2021 Obesity 02/16/2021 Palpitations 02/16/2021 PAST SURGICAL HISTORY Procedure Laterality Date CYSTECTOMY W/BI PELVIC LYMPHADENECTOMY 04/2021 CYSTO.PANENDO 05/25/2021 EXPLORATORY OF ABDOMEN 12/17/2021 Reduction of small-bowel volvulus PAST SURGICAL HISTORY OF right ovary removed PAST SURGICAL HISTORY OF ORIF right ankle PAST SURGICAL HISTORY OF 02/18/2021 TURBT REMOVAL OF BLADDER AND NODES VAGINAL HYSTERECTOMY FAMILY HISTORY Problem Relation Age of Onset Anesthesia Problems No Family History Colon Cancer No Family History Aneurysm No Family History Social History Tobacco Use Smoking status: Never Smokeless tobacco: Never Vaping Use Vaping status: Never Used Substance and Sexual Activity Alcohol use: Not Currently Drug use: Never Sexual activity: Not on file ALLERGIES Allergen Reactions Demeral [Meperidine] GI Upset Nausea, pt states room spins Flexeril [Cyclobenz* Hives Orphenadrine Other: See Comments, Hives, Rash Versed [Midazolam] Mental Status Change Review of Systems Constitutional: Positive for fatigue. Negative for chills and fever. HENT: Negative for voice change. Eyes: Positive for visual disturbance. Negative for photophobia and pain. Respiratory: Negative for cough and shortness of breath. Cardiovascular: Negative for chest pain. Gastrointestinal: Negative for abdominal pain, diarrhea, nausea and vomiting. Genitourinary: Negative for flank pain. Musculoskeletal: Negative for back pain. Skin: Negative for rash. Neurological: Positive for dizziness. Negative for seizures, speech difficulty, weakness, light-headedness, numbness and headaches. Physical Exam Vitals [02/07/24 2246] BP Pulse Temp Temp src Resp SpO2 Weight Height 127/85 (!) 92 36.4 ?C (97.5 ?F) Oral 18 99 % -- -- Physical Exam Constitutional: General: She is not in acute distress. Appearance: Normal appearance. She is not ill-appearing, toxic-appearing or diaphoretic. HENT: Head: Normocephalic and atraumatic. Comments: Palpable shunt reservoir in R parietal scalp without overlying erythema. Nose: Nose normal. Mouth/Throat: Mouth: Mucous membranes are moist. Eyes: General: No visual field deficit or scleral icterus. Extraocular Movements: Extraocular movements intact. Conjunctiva/sclera: Conjunctivae normal. Pupils: Pupils are equal, round, and reactive to light. Comments: No nystagmus Cardiovascular: Rate and Rhythm: Normal rate and regular rhythm. Pulses: Normal pulses. Heart sounds: No murmur heard. Pulmonary: Effort: Pulmonary effort is normal. No respiratory distress. Breath sounds: No wheezing or rhonchi. Abdominal: Palpations: Abdomen is soft. Tenderness: There is no abdominal tenderness. There is no guarding or rebound. Genitourinary: Comments: IC in RLQ with beefy red stoma. Yellow urine in bag Musculoskeletal: Cervical back: Normal range of motion and neck supple. Right lower leg: No edema. Left lower leg: No edema. Skin: General: Skin is warm and dry. Capillary Refill: Capillary refill takes less than 2 seconds. Findings: No rash. Neurological: General: No focal deficit present. Mental Status: She is alert and oriented to person, place, and time. GCS: GCS eye subscore is 4. GCS verbal subscore is 5. GCS motor subscore is 6. Cranial Nerves: Cranial nerves 2-12 are intact. No cranial nerve deficit, dysarthria or facial asymmetry. Sensory: No sensory deficit. Motor: No weakness (though LE strenth limited due to chronic and acute pain. intact plantar/dorsiflexion. pt says strength is he (more content not included)...NormalAvon HospitalEosinophils/100 WBC Auto (Bld)on 02-07-2024 Eosinophils/100 WBC (Bld)Automated eosinophil %[facility] Erythrocyte distribution width Auto (RBC) [Ratio]on 73-41-9950Jswelgphmel distribution width (RBC) [Ratio]Erythrocyte distribution width [Ratio] by Automated nfeyjAnvx81.5-15.0[facility] HospitalHIGH SENSITIVITY TROPONIN T (INITIAL)on 44-61-9624Frzyxqwf T.cardiac High sensitivity method [Mass/Vol]11 ng/LNormal<12Avon HospitalComment on above:Order Comment: Specimen Type: BLOOD SPECIMENOrdering Facility: [facility] Address:[address] [place], [place] [address]Performed By: #### [id number] ####[facility]ORYCLIA [id number] [facility] [place] [address] [place] AMERICAHematocrit Auto (Bld) [Volume fraction]on 98-51-4886Hwpkmdvvzi (Bld) [Volume fraction]Hematocrit [Volume Fraction] of Blood by Automated count 36.0-46.0[facility] HospitalHemoglobin [Mass/volume] in Bloodon 78-40-9418Gtikyjageu (Bld) [Mass/Vol]Hemoglobin [Mass/volume] in Blood11.5-15.5 [facility] HospitalLaboratory - Chemistry and Chemistry - challengeon 31-98-7461Dmkryzkri Ql (U)NegativeNegativeTwin City HospitalGlucose (U) [Mass/Vol]NegativeTrace, NegativeTwin City HospitalKetones Ql (U)NegativeNegative, TraceTwin City HospitalpH (U)8.5 [pH]High5.0-8.0Peoples Hospitalpecific gravity (U) [Rel density]1.0161.005-1.030[facility] HospitalAlbumin [Mass/Vol]4.1 g/dL3.9-4.9[facility] HospitalALP [Catalytic activity/Vol]141 U/L Lote99-143TdwhaoydeTwin City HospitalALT [Catalytic activity/Vol]19 U/L 7-38T[facility] HospitalAST [Catalytic activity/Vol]14 U/L13-35 [facility] HospitalBilirubin [Mass/Vol]0.2 mg/dL0.2-1.3FLancaster Municipal HospitalCalcium [Mass/Vol]9.5 mg/dL8.5-10.2FLancaster Municipal HospitalChloride [Moles/Vol]104 mmol/W10-391ZmstjssqcTwin City HospitalCO2 [Moles/Vol]30 mmol/I66-19BuuajyfycTwin City HospitalCreatinine [Mass/Vol]0.71 mg/dL0.58-0.96[facility] HospitalGlucose [Mass/Vol] 102 mg/mGNkzh46-41QvspgxwliTwin City HospitalComment on above:The [place] Diabetes Association (ADA) provides guidance for cutoff values for fasting glucose andrandom glucose. The ADA defines fasting as no [...] hyperglycemia or hyperglycemic crisis, random plasma glucose resultsgreater than or equal to 200 mg/dL meet the criteria for diagnosis of diabetes.Reference: Standardsof Medical Care in Diabetes 2016, [place] Diabetes Association. Diabetes Care. 2016.39(Suppl 1). Magnesium [Mass/Vol]2.0 mg/dL1.7-2.3FLancaster Municipal HospitalPotassium [Moles/Vol]3.9 mmol/L3.7-5.1FTriHealthodium [Moles/Vol] 143 mmol/O729-071FyqgilatoTwin City HospitalUrea nitrogen [Mass/Vol]26 mg/dLHigh7-21[facility] HospitalLaboratory - Hematology and Cell countson 24-13-2384Snplpsrpdhs (Bld) [#/Vol]0.11 10*3/uL<0.46[facility] HospitalImmature granulocytes (Bld) [#/Vol]0.03 10*3/uL<0.10T[facility] HospitalImmature granulocytes/100 WBC (Bld)0.6 %[facility] HospitalLaboratory - Microbiology and Antimicrobial susceptibilityon 37-88-1433QTXB-CoV-2 (COVID-19) RNA LOUISE+probe Ql (Unsp spec)Not detectedTwin City HospitalLaboratory - Specimen informationon 11-57-7745Pvejhtmezx (U)TurbidAbnormalCleLancaster Municipal Hospital Color (U)Light OrangeAbnormalyellowTwin City HospitalLaboratory - Urinalysison 44-68-2090Yzajbtmjr esterase Test strip Ql (U)250 Giorgio/uLAbnormal Negative, 25 Giorgio/uLTwin City HospitalNitrite Ql (U)1+Abnormal NegativeTwin City HospitalProtein Ql (U)1+AbnormalTrace, Negative [facility] HospitalLeukocytes [#/volume] corrected for nucleated erythrocytes in Blood by Automated counon 72-45-2051IVB corrected for nucl RBC Auto (Bld) [#/Vol]Leukocytes [#/volume] corrected for nucleated erythrocytes in Blood by Automated coun3.70-11.00T[facility] HospitalLymphocytes Auto (Bld) [#/Vol]on 31-25-2065Jrxshuwoqtu (Bld) [#/Vol]Lymphocytes [#/volume] in Blood by Automated count1.00-4.00[facility] Lymphocytes/100 WBC Auto (Bld)on 44-40-0378Ekeasfeyikj/100 WBC (Bld) Lymphocytes/100 leukocytes in Blood by Automated countAdena Fayette Medical CenterH Auto (RBC) [Entitic mass]on 97-01-8461MYH (RBC) [Entitic mass]MCH [Entitic mass] by Automated count26.0-34.0A[facility]ayette Medical CenterHC Auto (RBC) [Mass/Vol]on 03-23-7254GTCH (RBC) [Mass/Vol]MCHC [Mass/volume] by Automated count30.5-36.0Adena Fayette Medical CenterV Auto (RBC) [Entitic vol]on 93-68-7550LJA (RBC) [Entitic vol]MCV [Entitic volume] by Automated count 80.0-100.0[facility] City HospitalMagnesium SerPl-mCncon 02-07-2024 Magnesium [Mass/Vol]2.0 mg/dLNormal1.7-2.3Avon HospitalComment on above:Order Comment: Specimen Type: BLOOD SPECIMEN Ordering Facility: [facility] Address: [address] [place] [address] [place], [place] [address]Performed By: #### 62158-2, 96906-4 #### [facility] CLIA [id number] [facility] [place] [address] [place] AMERICAMonocytes Auto (Bld) [#/Vol]on 02-07-2024 Monocytes (Bld) [#/Vol]Automated blood monocyte count<0.87T[facility] HospitalMonocytes/100 WBC Auto (Bld)on 56-56-5602Lwgyyisfc/100 WBC (Bld) Automated monocyte %[facility] HospitalNeutrophils Auto (Bld) [#/Vol]on 39-64-9402Ipidofbhect (Bld) [#/Vol]Neutrophils [#/volume] in Blood by Automated count1.45-7.50T[facility] HospitalNeutrophils/100 WBC Auto (Bld)on 29-51-7497Kjtwmevwgxy/100 WBC (Bld)Automated neutrophil %[facility] HospitalNo Panel Informationon 33-54-7411Zlagi BacteriaRare [HPF] AbnormalNone [facility] HospitalUrine Calcium Oxalate Crystals Few [HPF]AbnormalNone SeenTwin City HospitalUrine Occult Blood NegativeNegative, TraceTwin City HospitalUrine RBC6-10 /HPF Abnormal0-3 /HPFTwin City HospitalUrine Squamous Epithelial Cells Few [HPF]AbnormalNone SeenTwin City HospitalUrine Urobilinogen NormalNormalTwin City HospitalUrine WBC>25 /HPFAbnormal0-5 /HPF [facility] Yeast (Budding)Few [HPF]AbnormalNone Seen [facility] HospitalEstimated GFR (CKD-EPI)99 mL/min/1.73m???>=60 [facility] HospitalComment on above:Estimated Glomerular Filtration Rate (eGFR) is calculated using the 2020 CKD-EPI creatinine equation. This equation utilizes serum creatinine, sex, and age as parameters. The creatinine assay has traceable calibration to isotope dilution-mass spectrometry. Refer to KDIGO guidelines for clinical interpretation. In patients with unstable renal function, e.g. those with acute kidney injury, the eGFRmay not accurately reflect actual GFR.Troponin T Hi Sens Cardiac Covhkugf08 ng/L<12 [facility] HospitalMiscellaneous Test CommentSee commentTwin City HospitalComment on above:Specimen Source: [id number] - - - [id number] RBC Auto (Bld) [#/Vol]on 03-16-7878Xdvzlgfgj RBC (Bld) [#/Vol]Nucleated erythrocytes [#/volume] in Blood by Automated count<0.01 [facility] HospitalNucleated erythrocytes [Presence] in Blood by Automated counton 68-53-6156Plirwmuqb RBC Auto Ql (Bld)Nucleated erythrocytes [Presence] in Blood by Automated countTwin City HospitalPlatelet mean volume Auto (Bld) [Entitic vol]on 78-65-2074Rdeweakj mean volume (Bld) [Entitic vol]Platelet mean volume [Entitic volume] in Blood by Automated count 9.0-12.7FLancaster Municipal HospitalPlatelets Auto (Bld) [#/Vol]on 05-39-4862Myqngqvco (Bld) [#/Vol]Platelets [#/volume] in Blood by Automated gusvh227-962MxvienigpTwin City HospitalProtein [Mass/volume] in Serum or Plasmaon 05-23-4058Mrxawsb [Mass/Vol]Protein [Mass/volume] in Serum or Plasma 6.3-8.0T[facility] HospitalRBC Auto (Bld) [#/Vol]on 20-77-8097NSU (Bld) [#/Vol]Erythrocytes [#/volume] in Blood by Automated count3.90-5.20 Peoples Hospitalerum or plasma anion gap determinationon 05-20-5539Dqccv gap [Moles/Vol]Serum or plasma anion gap determination8 [facility] HospitalUrinalysis complete panel (U)on 02-07-2024 Bacteria LM.HPF (Urine sed) [#/Area]RareAbnormalNone SeenCottonwood HospitalComment on above:Order Comment: Specimen Type: URINE SPECIMENOrdering Facility: [facility] Address:[address] [place], [place] [address]Performed By: #### 65134-2 ####[facility] [id number] [address] LABCLIA [id number] [address]ETBilirubin Ql (U)NegativeNormalNegativeCottonwood HospitalComment on above:Order Comment: Specimen Type: URINE SPECIMENOrdering Facility: [facility] Address:[address] [place], [place] [address]Performed By: #### 02022- 8 ####[facility] [id number] [place] [address] [facility] LABCLIA [id number] [address] STATES OF [facility] CALCIUM OXALATE CRYSTALS (UA)FewAbnormalNone SeenCottonwood HospitalComment on above: Order Comment: Specimen Type: URINE SPECIMENOrdering Facility: [facility] Address:[address] [place], [place] [address]Performed By: #### 73306- 8 ####[facility] [id number] [place] [address] [facility] LABCLIA [id number] [address] [address] [place] Clarity (Unsp spec)TurbidAbnormalClearAvon HospitalComment on above:Order Comment: Specimen Type: URINE SPECIMENOrdering Facility: [facility] Address:[address] [place], [place] [address]Performed By: #### 40940- 8 ####[facility] [id number] [place] [address] [facility] LABCLIA [id number] [address] [address] [place] Color (U)Light OrangeAbnormalyellowCottonwood HospitalComment on above:Order Comment: Specimen Type: URINE SPECIMENOrdering Facility: [facility] Address:[address] [place] [address]Performed By: #### 28069-4 ####[facility] [id number] [place] [address] [facility] LABCLIA [id number] [address] [address] [place] OF AMERICAEpithelial cells LM.HPF (Urine sed) [#/Area]FewAbnormalNone SeenCottonwood HospitalComment on above:Order Comment: Specimen Type: URINE SPECIMENOrdering Facility: [facility] Address:[address] [place], [place] [address]Performed By: #### 92395-6 ####[facility] [id number] [place] [address] [facility] LABCLIA [id number] [address] [address] [place] OF AMERICAGlucose Test strip (U) [Mass/Vol]NegativeNormalTrace, NegativeAvon HospitalComment on above:Order Comment: Specimen Type: URINE SPECIMENOrdering Facility: [facility] Address:[address] [place], [place] [address]Performed By: #### 75322-0 ####[facility] LABORATORYCLIA [id number] [place] [address] [facility] LABCLIA [id number] [facility] [place] [address] [place] AMERICAHemoglobin Ql (U)NegativeNormalNegative, TraceAvon HospitalComment on above:Order Comment: Specimen Type: URINE SPECIMENOrdering Facility: [facility] Address:[address] [place], [place] [address]Performed By: #### 31754-4 ####[facility] LABORATORYCLIA [id number] [place] [address] [facility] LABCLIA [id number] [facility] [address] STATES OF [facility] LIMAKetones Ql (U)NegativeNormalNegative, TraceAv Hospital Comment on above:Order Comment: Specimen Type: URINE SPECIMENOrdering Facility: [facility] Address:[address] [place] [address] Performed By: #### 21752-0 ####[facility] [id number] [place] [address] [facility] LABCLIA [id number] [facility] [place] [address] [place] AMERICALeukocyte esterase Test strip Ql (U)250 Giorgio/uLAbnormal Negative, 25 Giorgio/uLAvon HospitalComment on above:Order Comment: Specimen Type: URINE SPECIMENOrdering Facility: [facility] Address:[address] [place], [place] [address]Performed By: #### 92838-8 ####[facility] LABORATORYIA [id number] [place] [address] [facility] LABCLIA [id number] [place] [address] [address] [address] [address] [place] OF AMERICANitrite Ql (U)1+Abnormal NegativeAvon HospitalComment on above:Order Comment: Specimen Type: URINE SPECIMENOrdering Facility: [facility] Address:[address] [place], [place] [address]Performed By: #### 36871-1 ####[facility] [id number] [place], [place] [address] [place] [address] LABCLIA [id number] [place] [address] [place] [facility] LIMApH (U)8.5 [pH]High5.0-8.0Av HospitalComment on above:Order Comment: Specimen Type: URINE SPECIMENOrdering Facility: [facility] Address:[address] [place], [place] [address]Performed By: #### 87114-7 ####[facility] [id number] [place], [place] [address] [place] [address] LABCHRISTOPHER [place] [id number] [place] [address] [place] [facility] LIMAProtein (U) [Mass/Vol]1+AbnormalTrace, NegativeAv HospitalComment on above:Order Comment: Specimen Type: URINE SPECIMENOrdering Facility: [facility] Address:[address] [place], [place] [address]Performed By: #### 52003-1 ####[facility] [id number] [place] [address] [facility] LABIA [id number] [address]RB LM.HPF (Urine sed) [#/Area]6-10 /HPFAbnormal0-3 /HPF [facility] HospitalComment on above:Order Comment: Specimen Type: URINE SPECIMENOrdering Facility: [facility] Address:[address] [place], [place] [address]Performed By: #### 71017-1 ####[facility] [id number] [place] [address] [facility] LABCLIA [id number] [place] [address] [place] AMERICASpecific gravity (U) [Rel density]1.499Rtnqnw1.005-1.030Av HospitalComment on above:Order Comment: Specimen Type: URINE SPECIMENOrdering Facility: [facility] Address:[address] [place], [place] [address]Performed By: #### 83206-0 ####[facility] [id number] [place], [place] [address] [place] [address] LABCLIA [id number] [place] [address] [place] [facility] LIMAUrobilinogen Ql (U)NormalNormalNormalAvon HospitalComment on above:Order Comment: Specimen Type: URINE SPECIMENOrdering Facility: [facility] Address:[address] [place], [place] [address]Performed By: #### 78320-3 ####[facility] [id number] [place], [place] [address] [place] [address] LABCLIA [id number] [place] [address] [place] AMERICAWBC LM.HPF (Urine sed) [#/Area]/[HPF]Abnormal0-5 /HPFAv HospitalComment on above:Order Comment: Specimen Type: URINE SPECIMENOrdering Facility: [facility] Address:[address] [place], [place] [address]Performed By: #### 46948-1 ####[facility] [id number] [place] [address] [facility] LABCLIA [id number] [place] [address] [place] AMERICAYeast.budding LM.HPF (Urine sed) [#/Area]FewAbnormalNone SeenAv HospitalComment on above: Order Comment: Specimen Type: URINE SPECIMENOrdering Facility: [facility] Address:[address] [place], [place] [address]Performed By: #### 90272- 8 ####[facility] [id number] [place] [address] [facility] LABIA [id number] [address] STATES OF [place] Urinalysis complete pnl Uron 77-68-4248Himcohgwnc complete panel (U)COLOR: Light [place] CLARITY: Turbid GLUCOSE, URINE: Negative BILIRUBIN, URINE: Negative KETONES, URINE: Negative SPECIFIC GRAVITY, UR: 1.016 HEMOGLOBIN/BLOOD, UR: Negative PH, URINE: 8.5 PROTEIN, URINE: 1+ UROBILINOGEN: Normal NITRITES: 1+ LEUKEST: 250 Giorgio/uL WBC, URINE: >25 /HPF RBC, URINE: 6-10 /HPF BACTERIA: Rare NON-SQUAMOUS EPITHELIAL CELLS: Few CALCIUM OXALATE CRYSTALS (UA): Few BUDDING YEAST (UA): Few ORGANISM ID: 1 >=100,000 CFU/ml Mixed microbiota No further workup. Mixed microbiota can be due to???urine???contamination with skin bacteria at time of collection or presence of a long-term urinary catheter. If a new culture is needed, please consider re-education of the patient on proper midstream co llection technique or straight catheterization for???urine???collection.Normal River[facility] HospitalComment on above:Order Comment: Specimen Type: URINE SPECIMENOrdering Facility: [facility] Address:[address] [place], [place] [address]Performed By: #### 10771-6 ####[facility] [id number] [place] [address] [facility] LABIA [id number] [address] OF AMERICAXR 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 TEACHER SHUNT SERIES 5V -NBon 19-32-1629JK 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 TEACHER SHUNT SERIES 5V -NB* * *Final Report* * * DATE OF EXAM: Feb 07 2024 11:36PM VHX 5696 - XR 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 TEACHER SHUNT SERIES 5V -NB / PROCEDURE REASON: Nausea and Vomiting * * * * Physician Interpretation * * * * EXAMINATION: XR 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 TEACHER SHUNT SERIES 5V -NB CLINICAL HISTORY: Nausea and Vomiting, Headache or mental status change Technique: XR 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 TEACHER SHUNT SERIES 5V -NB Comparison: 10/15/2023 RESULT: Right occipital approach 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 catheter. Tip projects over midline, unchanged. Codman Certas Plus programmable valve appears to be set at position 6, unchanged. Shunt tubing courses along the right side of the neck with the tip overlying the mid anterior upper chest just to the right of midline without evidence of discontinuity or kinking. Lungs are clear. No pleural effusions or pneumothorax. Stable cardiomediastinal silhouette. Degenerative changes in the thoracic spine. IMPRESSION: Unchanged position of the right occipital approach 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. Laundry Aid: PSCB Transcribe Date/Time: Feb 08 2024 3:26A Dictated by : DILCIA LARIOS MD This examination was interpreted and the report reviewed and electronically signed by: DILCIA LARIOS MD on Feb 08 2024 3:31AM EST [id number] Ford HospitalHEMOGLOBIN A1C (POC)on 77-49-0641AhM9y (Bld) [Mass fraction]6.6 %Abnormal4.3 - 5.6 %The Metrohealth SystemComment on above: Location:[facility], [address] [place] [address], [address] Point of care (POC) Hemoglobin A1c (HGBA1C) testing is intended to assess glucose control and provide a management tool for patients known to have diabetes and their healthcare providers. Target HGBA1C levels may depend on specific clinical circumstances. POC HGBA1C is not intended for use as a diagnostic or screening test; laboratory-based testing should be used for diagnostic purposes. The following information is supplemental and may not be applicable to specific diabetes management situations: The POC device technical project lead provides a normal range of 4.2% to 6.5% for the HGBA1C POC test. However, the [place] Diabetes Association guidelines indicate that patients with HGBA1C in the range of 5.7% to 6.4% are at increased risk for development of diabetes and that intervention by lifestyle modification may be beneficial. A HGBA1C level greater than or equal to 6.5% is considered diagnostic of diabetes, pending confirmatory testing. Use of HGBA1C testing to evaluate glucose control may not be appropriate for patients with hemoglobin variants or other conditions (e.g. anemia) that alter red blood cell lifespan. Interpretation and review of laboratory resultsAbnormalCleveland The [facility] Medical CenterCT Head WO contraston 72-64-8249Xmgbosdob Study observation (narrative) The [facility] SystemIMPRESSION: Increased caliber of the lateral and third ventricles from 11/29/2023 with otherwise unchanged positioning of the ventriculostomy catheter. Laundry Aid: SUMA Transcribe Date/Time: Jan 10 2024 1:10P Dictated by : CARMEL GRULLON DO This examination was interpreted and the report reviewed and electronically signed by: CARMEL GRULLON DO on Jan 10 2024 1:14PM [facility] DIVISION OF RADIOLOGY* * *Final Report* * * DATE OF EXAM: Jan 10 2024 1:08PM [facility] 0504 - CT BRAIN WO IVCON / PROCEDURE REASON: Other hydrocephalus (HCC) * * * * Physician Interpretation * * * * EXAMINATION: CT BRAIN WO IVCON CLINICAL HISTORY: Other hydrocephalus (HCC) TECHNIQUE: Serial axial images without IV contrast were obtained from the vertex to the foramen magnum. MQ: CTBWO_3 CT Radiation dose: Integrated Dose-Length Product (DLP) for this visit = 776 mGy*cm CT Dose Reduction Employed: No dose reduction techniques were required COMPARISON: Head CT 11/29/1999 RESULT: Localizer images: No additional findings. Post-operative change: Right parieto-occipital approach ventriculostomy catheter with tip terminating in the anterior horn right lateral ventricle. Remote right frontal maría hole. Acute change: No evidence of an acute infarct or other acute parenchymal process. Hemorrhage: No evidence of acute intracranial hemorrhage. ECASS hemorrhagic transformation score: Not Applicable Mass Lesion / Mass Effect: There is no evidence of an intracranial mass or extraaxial fluid collection. No significant mass effect. Chronic change: Scattered patchy foci of low attenuation are present within supratentorial white matter which is a nonspecific finding but likely represents mild microvascular ischemia. Faint linear gliosis along prior instrumentation tract in the right frontal lobe. Parenchyma: There is no significant volume loss. Ventricles: Moderately increased caliber of the lateral and third ventricles compared to the 11/29/2023 examination. Paranasal sinuses and skull base: The visualized paranasal sinuses are grossly clear. The skull base and imaged soft tissues are unremarkable. Image extracranial catheter tubing is intact. DIVISION OF RADIOLOGYProvider, [facility] [place] - 01/10/2024 * * *Final Report* * * DATE OF EXAM: Jan 10 2024 1:08PM [facility] 0504 - CT BRAIN WO IVCON / PROCEDURE REASON: Other hydrocephalus (HCC) * * * * Physician Interpretation * * * * EXAMINATION: CT BRAIN WO IVCON CLINICAL HISTORY: Other hydrocephalus (HCC) TECHNIQUE: Serial axial images without IV contrast were obtained from the vertex to the foramen magnum. MQ: CTBWO_3 CT Radiation dose: Integrated Dose-Length Product (DLP) for this visit = 776 mGy*cm CT Dose Reduction Employed: No dose reduction techniques were required COMPARISON: Head CT 11/29/1999 RESULT: Localizer images: No additional findings. Post-operative change: Right parieto-occipital approach ventriculostomy catheter with tip terminating in the anterior horn right lateral ventricle. Remote right frontal maría hole. Acute change: No evidence of an acute infarct or other acute parenchymal process. Hemorrhage: No evidence of acute intracranial hemorrhage. ECASS hemorrhagic transformation score: Not Applicable Mass Lesion / Mass Effect: There is no evidence of an intracranial mass or extraaxial fluid collection. No significant mass effect. Chronic change: Scattered patchy foci of low attenuation are present within supratentorial white matter which is a nonspecific finding but likely represents mild microvascular ischemia. Faint linear gliosis along prior instrumentation tract in the right frontal lobe. Parenchyma: There is no significant volume loss. Ventricles: Moderately increased caliber of the lateral and third ventricles compared to the 11/29/2023 examination. Paranasal sinuses and skull base: The visualized paranasal sinuses are grossly clear. The skull base and imaged soft tissues are unremarkable. Image extracranial catheter tubing is intact. IMPRESSION IMPRESSION: Increased caliber of the lateral and third ventricles from 11/29/2023 with otherwise unchanged positioning of the ventriculostomy catheter. Laundry Aid: PSCB Transcribe Date/Time: Jan 10 2024 1:10P Dictated by : CARMEL GRULLON DO This examination was interpreted and the report reviewed and electronically signed by: CARMEL GRULLON DO on Jan 10 2024 1:14PM [facility] Head WO contrastOrdered By: [facility] Provider on 01-10-2024 The [facility] SystemC-REACTIVE PROTEINon 83-03-2601FCT [Mass/Vol]mg/dLNINF - 0.9 mg/dLWhite Hall ClinicCRP [Mass/Vol]on 86-93-8256Fitqukoqeojodq and review of laboratory resultsNormalClevelOhioHealth Southeastern Medical CenterComprehensive metabolic 2000 panelon 62-46-5615Ffnkgcs [Mass/Vol]3.8 g/dLLow3.9 - 4.9 g/dLWhite Hall ClinicALP [Catalytic activity/Vol]201 U/LHigh34 - 123 U/LCleveland ClinicALT [Catalytic activity/Vol]32 U/L7 - 38 U/LCleveland ClinicAnion gap [Moles/Vol]11 mmol/L8 - 15 mmol/LCleveland ClinicAST [Catalytic activity/Vol]19 U/L13 - 35 U/LCleveland ClinicBilirubin [Mass/Vol]0.2 mg/dL0.2 - 1.3 mg/dLWhite Hall ClinicCalcium [Mass/Vol]8.9 mg/dL8.5 - 10.2 mg/dLWhite Hall ClinicChloride [Moles/Vol]101 mmol/L98 - 107 mmol/LCleveland ClinicCO2 [Moles/Vol]28 mmol/L22 - 30 mmol/L [facility] SystemCreatinine [Mass/Vol]0.56 mg/dLLow0.58 - 0.96 mg/dLThe Metrohealth SystemGFR/1.73 sq M.predicted among non-blacks MDRD (S/P/Bld) [Vol rate/Area]107 mL/min/{1.73_m2}- PINFCMercy Health St. Charles HospitalComment on above:Estimated Glomerular Filtration Rate (eGFR) is calculated using the 2020 CKD-EPI creatinine equation. This equation utilizes serum creatinine, sex, and age as parameters. The creatinine assay has traceable calibration to isotope dilution-mass spectrometry. Refer to KDIGO guidelines for clinical interpretation. In patients with unstable renal function, e.g. those with acute kidney injury, the eGFRmay not accurately reflect actual GFR.Glucose [Mass/Vol]149 mg/jVKnbe76 - 99 mg/dL The Metrohealth SystemComment on above:The [place] Diabetes Association (ADA) provides guidance for cutoff values for fasting glucose andrandom glucose. The ADA defines fasting as no caloric intake for at least 8 hours. Fasting plasma gl ucose results between 100 to 125 mg/dL indicate [...] Standards of Medical Care in Diabetes 2016, [place] Diabetes Association. Diabetes Care. 2016.39(Suppl 1). Interpretation and review of laboratory resultsAbnormalCleveland ClinicPotassium [Moles/Vol]3.9 mmol/L3.7 - 5.1 mmol/LCleveland ClinicProtein [Mass/Vol]6.1 g/dL Low6.3 - 8.0 g/dLCleveland ClinicSodium [Moles/Vol]140 mmol/L136 - 144 mmol/L [facility] SystemUrea nitrogen [Mass/Vol]25 mg/dLHigh7 - 21 mg/dLThe [facility] System No Panel Informationon 51-46-7831Akeifzcod ClinicBasophils Auto (Bld) [#/Vol]on 60-45-4259Jfkvdwtxd (Bld) [#/Vol]Automated basophil count<0.11T[facility] City HospitalBasophils/100 WBC Auto (Bld)on 65-28-5584Bomkttpmn/100 WBC (Bld) Automated basophil %[facility] City HospitalBlood manual differential comment interpretation narrativeon 78-17-5676Imcatj differential comment Reymundo (Bld) [Interp]Blood manual differential comment interpretation narrative [facility] City HospitalCBC W Auto Differential panel (Bld)on 63-17-7403Ogzawazhs (Bld) [#/Vol]0.03 10*3/uLNIMemorial Health SystemBasophils/100 WBC (Bld)0.4 %[facility] SystemDifferential cell count method Nom (Bld)Auto [facility] SystemEosinophils (Bld) [#/Vol]0.14 10*3/uLNINFThe [facility] System Eosinophils/100 WBC (Bld)1.8 %The [facility] SystemErythrocyte distribution width (RBC) [Ratio]15.5 %High11.5 - 15.0 %[facility] SystemHematocrit (Bld) [Volume fraction]37.5 %36.0 - 46.0 %[facility] SystemHemoglobin (Bld) [Mass/Vol]11.7 g/dL 11.5 - 15.5 g/dLThe Metrohealth SystemImmature granulocytes (Bld) [#/Vol]0.09 10*3/uL NINFCMercy Health St. Charles HospitalImmature granulocytes/100 WBC (Bld)1.2 %[facility] Interpretation and review of laboratory resultsAbnormalCMercy Health St. Charles Hospital Lymphocytes (Bld) [#/Vol]1.89 10*3/uLThe Metrohealth SystemLymphocytes/100 WBC (Bld) 24.9 %[facility] HospitalH (RBC) [Entitic mass]29.0 pg26.0 - 34.0 pgClevelSteven Community Medical CenterHC (RBC) [Mass/Vol]31.2 g/dL30.5 - 36.0 g/dLProMedica Flower HospitalV (RBC) [Entitic vol]93.1 fL80.0 - 100.[address] HospitalMonocytes (Bld) [#/Vol]0.51 10*3/uLNINFThe Metrohealth SystemMonocytes/100 WBC (Bld)6.7 %[facility] Neutrophils (Bld) [#/Vol]4.93 10*3/uLThe Metrohealth SystemNeutrophils/100 WBC (Bld) 65.0 %[facility] SystemNucleated RBC (Bld) [#/Vol]NINFCMercy Health St. Charles HospitalNucleated RBC/100 WBC (Bld) [Ratio]0.0 %/100 WBCThe Metrohealth SystemPlatelet mean volume (Bld) [Entitic vol]9.0 fL9.0 - 12.7 fLCregency hospital toledo ClinicPlatelets (Bld) [#/Vol]331 10*3/uLThe Metrohealth SystemRBC (Bld) [#/Vol]4.03 10*6/uL3.90 - 5.20 m/[facility] HospitalWBC (Bld) [#/Vol]7.59 10*3/[facility] Eosinophils/100 WBC Auto (Bld)on 58-32-6237Zsbzxsfaawm/100 WBC (Bld)Automated eosinophil %[facility] City HospitalErythrocyte distribution width Auto (RBC) [Ratio]on 52-55-3516Ipjxdfjsghj distribution width (RBC) [Ratio] Erythrocyte distribution width [Ratio] by Automated qiomzOcaa41.5-15.0T[facility] City HospitalHematocrit Auto (Bld) [Volume fraction]on 12-21-2023 Hematocrit (Bld) [Volume fraction]Hematocrit [Volume Fraction] of Blood by Automated count36.0-46.0T[facility] HospitalHemoglobin [Mass/volume] in Bloodon 52-98-5127Bnfegmgzog (Bld) [Mass/Vol]Hemoglobin [Mass/volume] in Blood11.5-15.5FLancaster Municipal HospitalLaboratory - Chemistry and Chemistry - challengeon 11-57-4363Cdeljxa [Mass/Vol]3.8 g/dLLow 3.9-4.9[facility] HospitalALP [Catalytic activity/Vol]201 U/LHigh 34-123T[facility] City HospitalALT [Catalytic activity/Vol]32 U/L7-38 [facility] HospitalAST [Catalytic activity/Vol]19 U/L13-35 [facility] HospitalBilirubin [Mass/Vol]0.2 mg/dL0.2-1.3FLancaster Municipal HospitalCalcium [Mass/Vol]8.9 mg/dL8.5-10.2FLancaster Municipal HospitalChloride [Moles/Vol]101 mmol/M75-937BammneoygTwin City HospitalCO2 [Moles/Vol]28 mmol/I40-85KgrjwzpoyTwin City HospitalCreatinine [Mass/Vol]0.56 mg/dLLow0.58-0.96T[facility] HospitalGlucose [Mass/Vol]149 mg/rQBbob53-09SzhhvphtkTwin City HospitalComment on above: The [place] Diabetes Association (ADA) provides guidance for cutoff values for fasting glucose andrandom glucose. The ADA defines fasting as no [...] hyperglycemia or hyperglycemic crisis, random plasma glucose resultsgreater than or equal to 200 mg/dL meet the criteria for diagnosis of diabetes.Reference: Standardsof Medical Care in Diabetes 2016, [place] Diabetes Association. Diabetes Care. 2016.39(Suppl 1).Potassium [Moles/Vol]3.9 mmol/L3.7-5.1FTriHealthodium [Moles/Vol]140 mmol/U572-119GcioauqyzTwin City HospitalUrea nitrogen [Mass/Vol]25 mg/dLHigh7-21[facility] Laboratory - Hematology and Cell countson 96-15-6507Dqjeesjytvw (Bld) [#/Vol] 0.14 10*3/uL<0.46T[facility] HospitalImmature granulocytes (Bld) [#/Vol]0.09 10*3/uL<0.10T[facility] HospitalImmature granulocytes/100 WBC (Bld)1.2 %[facility] HospitalLeukocytes [#/volume] corrected for nucleated erythrocytes in Blood by Automated counon 16-15-6524VYN corrected for nucl RBC Auto (Bld) [#/Vol]Leukocytes [#/volume] corrected for nucleated erythrocytes in Blood by Automated coun3.70-11.00 [facility] HospitalLymphocytes Auto (Bld) [#/Vol]on 12-21-2023 Lymphocytes (Bld) [#/Vol]Lymphocytes [#/volume] in Blood by Automated count 1.00-4.00T[facility] HospitalLymphocytes/100 WBC Auto (Bld)on 12-23-2985Evxkfuzgrnz/100 WBC (Bld)Lymphocytes/100 leukocytes in Blood by Automated countAdena Fayette Medical CenterH Auto (RBC) [Entitic mass]on 00-13-7943IRL (RBC) [Entitic mass]MCH [Entitic mass] by Automated count26.0-34.0 [facility] HospitalMCHC Auto (RBC) [Mass/Vol]on 68-83-3269RNOW (RBC) [Mass/Vol]MCHC [Mass/volume] by Automated count30.5-36.0T[facility] City HospitalMCV Auto (RBC) [Entitic vol]on 74-75-7532OZT (RBC) [Entitic vol] MCV [Entitic volume] by Automated count80.0-100.0T[facility] HospitalMonocytes Auto (Bld) [#/Vol]on 89-50-1969Qmyieqdvy (Bld) [#/Vol]Automated blood monocyte count<0.87T[facility] HospitalMonocytes/100 WBC Auto (Bld)on 05-99-0933Zaleskeku/100 WBC (Bld)Automated monocyte %[facility] HospitalNeutrophils Auto (Bld) [#/Vol]on 70-37-7239Brgjdxngrkc (Bld) [#/Vol]Neutrophils [#/volume] in Blood by Automated count1.45-7.50T[facility] HospitalNeutrophils/100 WBC Auto (Bld)on 12-21-2023 Neutrophils/100 WBC (Bld)Automated neutrophil %[facility] No Panel Informationon 55-33-0105I-Reactive Protein, Quantitative<0.3 mg/dL<0.9 [facility] HospitalEstimated GFR (CKD-EPI)107 mL/min/1.73m???>=60 [facility] City HospitalComment on above:Estimated Glomerular Filtration Rate (eGFR) is calculated using the 2020 CKD-EPI creatinine equation. This equation utilizes serum creatinine, sex, and age as parameters. The creatinine assay has traceable calibration to isotope dilution-mass spectrometry. Refer to KDIGO guidelines for clinical interpretation. In patients with unstable renal function, e.g. those with acute kidney injury, the eGFRmay not accurately reflect actual GFR.Nucleated RBC Auto (Bld) [#/Vol]on 12-21-2023 Nucleated RBC (Bld) [#/Vol]Nucleated erythrocytes [#/volume] in Blood by Automated count<0.01T[facility] City HospitalNucleated erythrocytes [Presence] in Blood by Automated counton 30-24-8695Ukvczpsnp RBC Auto Ql (Bld) Nucleated erythrocytes [Presence] in Blood by Automated countTwin City HospitalPlatelet mean volume Auto (Bld) [Entitic vol]on 35-38-3699Syakkrbv mean volume (Bld) [Entitic vol]Platelet mean volume [Entitic volume] in Blood by Automated count9.0-12.7FLancaster Municipal HospitalPlatelets Auto (Bld) [#/Vol]on 00-35-5570Qqnvnequk (Bld) [#/Vol]Platelets [#/volume] in Blood by Automated whngo340-465InqjdxnzhTwin City HospitalProtein [Mass/volume] in Serum or Plasmaon 40-36-9375Nsciyak [Mass/Vol]Protein [Mass/volume] in Serum or PlasmaLow6.3-8.0T[facility] City HospitalRBC Auto (Bld) [#/Vol]on [id number] (Bld) [#/Vol]Erythrocytes [#/volume] in Blood by Automated count 3.90-5.20Peoples Hospitalerum or plasma anion gap determinationon [id number] gap [Moles/Vol]Serum or plasma anion gap determination11-28[facility] HospitalCT Head WO contraston [id number]: Postsurgical changes with interval decrease in size of the ventricular system, but with small bilateral subdural hygromas, which may be due to over shunting. COMMUNICATION: Communicated with MARLENE CORDERO on 11/29/2023 3:19 PM via verbal communication. Laundry Aid: SUMA Transcribe Date/Time: Nov 29 2023 3:13P Dictated by : VASQUEZ VEGA MD This examination was interpreted and the report reviewed and electronically signed by: VASQUEZ EVGA MD on Nov 29 2023 3:19PM [facility] DIVISION OF RADIOLOGY* * *Final Report* * * DATE OF EXAM: Nov 29 2023 3:11PM [facility] 0504 - CT BRAIN WO IVCON / PROCEDURE REASON: Other hydrocephalus (HCC) * * * * Physician Interpretation * * * * EXAMINATION: CT BRAIN WO IVCON CLINICAL HISTORY: Other hydrocephalus (HCC) TECHNIQUE: Serial axial images without IV contrast were obtained from the vertex to the foramen magnum. MQ: CTBWO_3 CT Radiation dose: Integrated Dose-Length Product (DLP) for this visit = 1189 mGy*cm CT Dose Reduction Employed: No dose reduction techniques were required COMPARISON: CT brain 10/29/2023 RESULT: Localizer images: No significant findings. Post-operative change: Again seen are postoperative changes status post right occipital ventriculostomy, with the tip in the frontal horn right lateral ventricle. Acute change: There is slight prominence of the extra axial spaces overlying the bilateral cerebral convexities, measuring up to 3 mm on the right and 4 mm on the left, which may be due to subdural hygromas. Hemorrhage: No evidence of acute intracranial hemorrhage. ECASS hemorrhagic transformation score: Not Applicable Mass Lesion / Mass Effect: There is no evidence of an intracranial mass or extraaxial fluid collection. No significant mass effect. Chronic change: Scattered patchy foci of low attenuation are present within supratentorial white matter which is a nonspecific finding but likely represents mild microvascular ischemia. Parenchyma: There is no significant volume loss. The brain parenchyma is otherwise within normal limits for age. Ventricles: Slitlike lateral and third ventricles, decreased in size compared to the prior exam. Paranasal sinuses and skull base: The visualized paranasal sinuses are grossly clear. The skull base and imaged soft tissues are unremarkable. DIVISION OF RADIOLOGYProvider, [facility] [place] - 11/29/2023 * * *Final Report* * * DATE OF EXAM: Nov 29 2023 3:11PM [facility] 0504 - CT BRAIN WO IVCON / PROCEDURE REASON: Other hydrocephalus (HCC) * * * * Physician Interpretation * * * * EXAMINATION: CT BRAIN WO IVCON CLINICAL HISTORY: Other hydrocephalus (HCC) TECHNIQUE: Serial axial images without IV contrast were obtained from the vertex to the foramen magnum. MQ: CTBWO_3 CT Radiation dose: Integrated Dose-Length Product (DLP) for this visit = 1189 mGy*cm CT Dose Reduction Employed: No dose reduction techniques were required COMPARISON: CT brain 10/29/2023 RESULT: Localizer images: No significant findings. Post-operative change: Again seen are postoperative changes status post right occipital ventriculostomy, with the tip in the frontal horn right lateral ventricle. Acute change: There is slight prominence of the extra axial spaces overlying the bilateral cerebral convexities, measuring up to 3 mm on the right and 4 mm on the left, which may be due to subdural hygromas. Hemorrhage: No evidence of acute intracranial hemorrhage. ECASS hemorrhagic transformation score: Not Applicable Mass Lesion / Mass Effect: There is no evidence of an intracranial mass or extraaxial fluid collection. No significant mass effect. Chronic change: Scattered patchy foci of low attenuation are present within supratentorial white matter which is a nonspecific finding but likely represents mild microvascular ischemia. Parenchyma: There is no significant volume loss. The brain parenchyma is otherwise within normal limits for age. Ventricles: Slitlike lateral and third ventricles, decreased in size compared to the prior exam. Paranasal sinuses and skull base: The visualized paranasal sinuses are grossly clear. The skull base and imaged soft tissues are unremarkable. IMPRESSION IMPRESSION: Postsurgical changes with interval decrease in size of the ventricular system, but with small bilateral subdural hygromas, which may be due to over shunting. COMMUNICATION: Communicated with MARLENE CORDERO on 11/29/2023 3:19 PM via verbal communication. Laundry Aid: SUMA Transcribe Date/Time: Nov 29 2023 3:13P Dictated by : VASQUEZ VEGA MD This examination was interpreted and the report reviewed and electronically signed by: VASQUEZ VEGA MD on Nov 29 2023 3:19PM [facility] HospitalRadiology Study observation (narrative)[facility] SystemCT Head WO contrastOrdered By: Ccf Provider on [id number] [facility]by Medical CenterC-REACTIVE PROTEINon [id number] [Mass/Vol]mg/dLNINF - 0.9 mg/dLThe Metrohealth SystemCBC W Auto Differential panel (Bld)on 72-77-5749Joendmoov (Bld) [#/Vol]0.05 10*3/uL NINFClevelformerly [facility] ClinicBasophils/100 WBC (Bld)1.0 %[facility] SystemDifferential cell count method Nom (Bld)AutoCleveland ClinicEosinophils (Bld) [#/Vol]0.23 10*3/uLNINFWhite Hall ClinicEosinophils/100 WBC (Bld)4.7 %[facility] Erythrocyte distribution width (RBC) [Ratio]16.9 %High11.5 - 15.0 %[facility] SystemHematocrit (Bld) [Volume fraction]36.2 %36.0 - 46.0 %[facility] Hemoglobin (Bld) [Mass/Vol]11.4 g/dLLow11.5 - 15.5 g/dLThe [facility]health SystemImmature granulocytes (Bld) [#/Vol]NINFCleveland ClinicImmature granulocytes/100 WBC (Bld)0.2 %[facility] SystemInterpretation and review of laboratory results AbnormalThe Metrohealth SystemLymphocytes (Bld) [#/Vol]1.26 10*3/[facility] Lymphocytes/100 WBC (Bld)25.9 %[facility] HospitalH (RBC) [Entitic mass]28.1 pg 26.0 - 34.0 pgCUniversity Hospitals TriPoint Medical CenterHC (RBC) [Mass/Vol]31.5 g/dL30.5 - 36.0 g/dL [facility] HospitalV (RBC) [Entitic vol]89.2 fL80.0 - 100.[address] [facility] Monocytes (Bld) [#/Vol]0.48 10*3/NINFThe Metrohealth SystemMonocytes/100 WBC (Bld) 9.9 %[facility] SystemNeutrophils (Bld) [#/Vol]2.83 10*3/[facility] Neutrophils/100 WBC (Bld)58.3 %[facility] SystemNucleated RBC (Bld) [#/Vol]NINF [facility] SystemNucleated RBC/100 WBC (Bld) [Ratio]0.0 %/100 WBCThe [facility]health System Platelet mean volume (Bld) [Entitic vol]9.4 fL9.0 - 12.[address] [facility] Hospital Platelets (Bld) [#/Vol]359 10*3/[facility] HospitalRBC (Bld) [#/Vol]4.06 10*6/uL 3.90 - 5.20 m/[facility] Doctors HospitalWBC (Bld) [#/Vol]4.86 10*3/[facility] HospitalComprehensive metabolic 2000 panelon [id number] [Mass/Vol]3.8 g/dLLow3.9 - 4.9 g/dLWhite Hall ClinicALP [Catalytic activity/Vol] 161 U/LHigh34 - 123 U/LCleveland ClinicALT [Catalytic activity/Vol]10 U/L7 - 38 U/LCleveland ClinicAnion gap [Moles/Vol]8 mmol/L8 - 15 mmol/LCleveland ClinicAST [Catalytic activity/Vol]16 U/L13 - 35 U/LCleveland ClinicBilirubin [Mass/Vol] 0.3 mg/dL0.2 - 1.3 mg/dLWhite Hall ClinicCalcium [Mass/Vol]9.2 mg/dL8.5 - 10.2 mg/dLThe [facility] SystemChloride [Moles/Vol]102 mmol/L98 - 107 mmol/LCleveland ClinicCO2 [Moles/Vol]29 mmol/L22 - 30 mmol/LCleveland ClinicCreatinine [Mass/Vol]0.62 mg/dL0.58 - 0.96 mg/dLThe [facility] SystemGFR/1.73 sq M.predicted among non-blacks MDRD (S/P/Bld) [Vol rate/Area]104 mL/min/{1.73_m2}- PINF The [facility] SystemComment on above:Estimated Glomerular Filtration Rate (eGFR) is calculated using the 2020 CKD-EPI creatinine equation. This equation utilizes serum creatinine, sex, and age as parameters. The creatinine assay has traceable calibration to isotope dilution-mass spectrometry. Refer to KDIGO guidelines for clinical interpretation. In patients with unstable renal function, e.g. those with acute kidney injury, the eGFRmay not accurately reflect actual GFR.Glucose [Mass/Vol]94 mg/dL74 - 99 mg/dLWilson Memorial Hospital on above:The [place] Diabetes Association (ADA) provides guidance for cutoff values for fasting glucose andrandom glucose. The ADA defines fasting as no [...] Standards of Medical Care in Diabetes 2016, [place] Diabetes Association. Diabetes Care. 2016.39(Suppl 1). Interpretation and review of laboratory resultsAbnormalCleveland ClinicPotassium [Moles/Vol]4.3 mmol/L3.7 - 5.1 mmol/LCleveland ClinicProtein [Mass/Vol]6.3 g/dL 6.3 - 8.0 g/dLWhite Hall ClinicSodium [Moles/Vol]139 mmol/L136 - 144 mmol/L [facility] SystemUrea nitrogen [Mass/Vol]19 mg/dL7 - 21 mg/dLThe [facility] MAGNESIUMon [id number] [Mass/Vol]2.3 mg/dL1.7 - 2.3 mg/dLThe [facility] SystemNo Panel Informationon [id number] and review of laboratory resultsNormalCGood Samaritan HospitalPHOSPHORUS INORGANICon 11-05-2023 Phosphate [Mass/Vol]3.8 mg/dL2.7 - 4.8 mg/dLMercy Health Clermont Hospital-REACTIVE PROTEINon [id number] [Mass/Vol]0.5 mg/dLNINF - 0.9 mg/dLGenesis HospitalC W Auto Differential panel (Bld)on [id number] (Bld) [#/Vol]NINFCMercy Health St. Charles Hospital Basophils/100 WBC (Bld)0.3 %[facility] SystemDifferential cell count method Nom (Bld)AutoCleveland ClinicEosinophils (Bld) [#/Vol]0.28 10*3/uLNINFThe [facility] SystemEosinophils/100 WBC (Bld)4.5 %[facility] SystemErythrocyte distribution width (RBC) [Ratio]17.0 %High11.5 - 15.0 %[facility] SystemHematocrit (Bld) [Volume fraction]32.9 %Low36.0 - 46.0 %[facility] SystemHemoglobin (Bld) [Mass/Vol]10.2 g/dLLow11.5 - 15.5 g/dLThe [facility] SystemImmature granulocytes (Bld) [#/Vol]NINFClevelOhioHealth Southeastern Medical CenterImmature granulocytes/100 WBC (Bld)0.3 % [facility] SystemInterpretation and review of laboratory resultsAbnormalCMercy Health St. Charles HospitalLymphocytes (Bld) [#/Vol]1.06 10*3/uLThe [facility] SystemLymphocytes/100 WBC (Bld)17.1 %[facility] HospitalH (RBC) [Entitic mass]27.7 pg26.0 - 34.0 pg [facility] HospitalHC (RBC) [Mass/Vol]31.0 g/dL30.5 - 36.0 g/dLThe [facility] MCV (RBC) [Entitic vol]89.4 fL80.0 - 100.0 fLCleveland ClinicMonocytes (Bld) [#/Vol]0.61 10*3/uLNINFThe [facility] SystemMonocytes/100 WBC (Bld)9.8 %[facility] SystemNeutrophils (Bld) [#/Vol]4.22 10*3/[facility] Doctors HospitalNeutrophils/100 WBC (Bld)68.0 %[facility] SystemNucleated RBC (Bld) [#/Vol]NINFCMercy Health St. Charles Hospital Nucleated RBC/100 WBC (Bld) [Ratio]0.0 %/100 WBCThe [facility]health SystemPlatelet mean volume (Bld) [Entitic vol]9.7 fL9.0 - 12.7 fLClevelformerly [facility] ClinicPlatelets (Bld) [#/Vol]299 10*3/uLWhite Hall ClinicRBC (Bld) [#/Vol]3.68 10*6/uLLow3.90 - 5.20 m/[facility] Doctors HospitalWBC (Bld) [#/Vol]6.21 10*3/uLKettering Health DaytonCobalamin (Vitamin B12) [Mass/Vol]on 24-90-9658Iemsjmbbiqcnys and review of laboratory resultsAbnormalCleveland ClinicComprehensive metabolic 2000 panel on 46-67-9909Aetdmuo [Mass/Vol]3.4 g/dLLow3.9 - 4.9 g/dLWhite Hall ClinicALP [Catalytic activity/Vol]174 U/LHigh34 - 123 U/LCleveland ClinicALT [Catalytic activity/Vol]9 U/L7 - 38 U/LCleveland ClinicAnion gap [Moles/Vol]8 mmol/L8 - 15 mmol/LCleveland ClinicAST [Catalytic activity/Vol]12 U/LLow13 - 35 U/LCleveland ClinicBilirubin [Mass/Vol]0.2 mg/dL0.2 - 1.3 mg/dLWhite Hall ClinicCalcium [Mass/Vol]8.8 mg/dL8.5 - 10.2 mg/dLWhite Hall ClinicChloride [Moles/Vol]104 mmol/L98 - 107 mmol/LCleveland ClinicCO2 [Moles/Vol]27 mmol/L22 - 30 mmol/L [facility] SystemCreatinine [Mass/Vol]0.67 mg/dL0.58 - 0.96 mg/dLThe [facility] GFR/1.73 sq M.predicted among non-blacks MDRD (S/P/Bld) [Vol rate/Area]102 mL/min/{1.73_m2}- PINFCselect medical specialty hospital - akronand Canby Medical CenterComment on above:Estimated Glomerular Filtration Rate (eGFR) is calculated using the 2020 CKD-EPI creatinine equation. This equation utilizes serum creatinine, sex, and age as parameters. The creatinine assay has traceable calibration to isotope dilution-mass spectrometry. Refer to KDIGO guidelines for clinical interpretation. In patients with unstable renal function, e.g. those with acute kidney injury, the eGFRmay not accurately reflect actual GFR.Glucose [Mass/Vol]151 mg/qCPokz97 - 99 mg/dL [facility] SystemComment on above:The [place] Diabetes Association (ADA) provides guidance for cutoff values for fasting glucose andrandom glucose. The ADA defines fasting as no caloric intake for at least 8 hours. Fasting plasma gl ucose results between 100 to 125 mg/dL indicate [...] Standards of Medical Care in Diabetes 2016, [place] Diabetes Association. Diabetes Care. 2016.39(Suppl 1). Interpretation and review of laboratory resultsAbnormalCleveland ClinicPotassium [Moles/Vol]4.7 mmol/L3.7 - 5.1 mmol/LCleveland ClinicProtein [Mass/Vol]6.0 g/dL Low6.3 - 8.0 g/dLWhite Hall ClinicSodium [Moles/Vol]139 mmol/L136 - 144 mmol/L [facility] SystemUrea nitrogen [Mass/Vol]21 mg/dL7 - 21 mg/dLThe [facility] FOLATE, SERUMon 37-75-3769Ywkkzk [Mass/Vol]8.3 ng/mL4.7 - PINF ng/mLCleveland ClinicFolate [Mass/Vol]on 41-81-1711Ifzcpzhptfjwnl and review of laboratory resultsNormalCleveland ClinicIron and Iron binding capacity panelon 11-01-2023 Interpretation and review of laboratory resultsAbnormalCleveland ClinicIron [Mass/Vol]33 ug/dLLow41 - 186 ug/dLThe [facility] SystemIron binding capacity [Mass/Vol]340 ug/dL232 - 386 ug/dLThe [facility] SystemIron/TIBC [Molar ratio]9.7 % Low20.0 - 55.0 %[facility] ClinicMAGNESIUMon 98-87-3960Cftapaexi [Mass/Vol]2.0 mg/dL1.7 - 2.3 mg/dLThe [facility] SystemNo Panel Informationon 60-62-6380Uuchbmxjr ClinicInterpretation and review of laboratory resultsNormal [facility] DaytonPHOSPHORUS INORGANICon 79-72-6046Bqxcsvlpv [Mass/Vol]3.1 mg/dL2.7 - 4.8 mg/dLThe [facility] SystemVITAMIN B12on 11-01-2023 Cobalamin (Vitamin B12) [Mass/Vol]200 pg/sSHhx682 - 1245 pg/mLCleveland Canby Medical CenterC- REACTIVE PROTEINon 44-94-4751HRV [Mass/Vol]0.3 mg/dLNINF - 0.9 mg/dLThe [facility] SystemCB W Auto Differential panel (Bld)on 89-07-4005Umyzvhcej (Bld) [#/Vol] 0.03 10*3/uLNIMemorial Health SystemBasophils/100 WBC (Bld)0.5 %[facility] Differential cell count method Nom (Bld)AutoCleveland ClinicEosinophils (Bld) [#/Vol]0.18 10*3/uLNINFThe [facility] SystemEosinophils/100 WBC (Bld)3.2 %[facility] SystemErythrocyte distribution width (RBC) [Ratio]17.5 %High11.5 - 15.0 % [facility] SystemHematocrit (Bld) [Volume fraction]33.6 %Low36.0 - 46.0 % [facility] SystemHemoglobin (Bld) [Mass/Vol]10.5 g/dLLow11.5 - 15.5 g/dLThe [facility] SystemImmature granulocytes (Bld) [#/Vol]0.09 10*3/uLNINFThe [facility] Immature granulocytes/100 WBC (Bld)1.6 %[facility] SystemInterpretation and review of laboratory resultsAbnormalCleveland ClinicLymphocytes (Bld) [#/Vol] 1.09 10*3/[facility] Doctors HospitalLymphocytes/100 WBC (Bld)19.5 %[facility] HospitalH (RBC) [Entitic mass]27.6 pg26.0 - 34.0 pgCUniversity Hospitals TriPoint Medical CenterHC (RBC) [Mass/Vol] 31.3 g/dL30.5 - 36.0 g/dLProMedica Flower HospitalV (RBC) [Entitic vol]88.4 fL80.0 - 100.0 fLCregency hospital toledo ClinicMonocytes (Bld) [#/Vol]0.52 10*3/NINFThe [facility] Monocytes/100 WBC (Bld)9.3 %[facility] SystemNeutrophils (Bld) [#/Vol]3.68 10*3/[facility] Doctors HospitalNeutrophils/100 WBC (Bld)65.9 %[facility] SystemNucleated RBC (Bld) [#/Vol]NINFClevelOhioHealth Southeastern Medical CenterNucleated RBC/100 WBC (Bld) [Ratio]0.0 % /100 WBCThe [facility]health SystemPlatelet mean volume (Bld) [Entitic vol]9.6 fL9.0 - 12.7 fLCregency hospital toledo ClinicPlatelets (Bld) [#/Vol]345 10*3/[facility] Doctors HospitalRBC (Bld) [#/Vol]3.80 10*6/uLLow3.90 - 5.20 m/[facility] Doctors HospitalWBC (Bld) [#/Vol]5.59 10*3/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 TECHNIQUE: Serial axial images without IV contrast were obtained from the vertex to the foramen magnum. MQ: CTBWO_3 CT Radiation dose: Integrated Dose-Length Product (DLP) for this visit = 900 mGy*cm CT Dose Reduction Employed: No dose reduction techniques were required COMPARISON: Head CT dated 10/15/2023, 10/09/2023, 11/15/2022 RESULT: Post-operative change: There is right occipital approach ventriculostomy catheter, extending to the frontal horn of the right lateral ventricle, unchanged since 10/15/2023. Acute change: No evidNo evidence of an acute infarct or other acute parenchymal process.morrhage: No evidNo evidence of acute intracranial hemorrhage.hemorrhagic transformation score: Not AppNot ApplicableLesion / Mass Effect: There iThere is no evidence of an intracranial mass or extraaxial fluid collection.nificant mass effect. Chronic change: Scattered patchy foci of low attenuation are present within supratentorial white matter which is a nonspecific finding but likely represents mild microvascular ischemia. Parenchyma: There is mild generalized volume loss. Stable mild linear right frontal subcortical gliosis. Ventricles: The ventricles are within normal limits of size and configuration for age, improved since 10/15/2023. Paranasal sinuses and skull base: The visThe visualized paranasal sinuses are grossly clear.ull base and imaged soft tissues are unremarkable. I ESSION: RIGHT OCCIPITAL APPROACH VENTRICULOSTOMY CATHETER WITH INTERVAL IMPROVEMENT OF VENTRICULAR SIZE SINCE 10/15/2023. 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 TECHNIQUE: Serial axial images without IV contrast were obtained from the vertex to the foramen magnum. MQ: CTBWO_3 CT Radiation dose: Integrated Dose-Length Product (DLP) for this visit = 900 mGy*cm CT Dose Reduction Employed: No dose reduction techniques were required COMPARISON: Head CT dated 10/15/2023, 10/09/2023, 11/15/2022 RESULT: Post-operative change: There is right occipital approach ventriculostomy catheter, extending to the frontal horn of the right lateral ventricle, unchanged since 10/15/2023. Acute change: No evidNo evidence of an acute infarct or other acute parenchymal process.morrhage: No evidNo evidence of acute intracranial hemorrhage.hemorrhagic transformation score: Not AppNot ApplicableLesion / Mass Effect: There iThere is no evidence of an intracranial mass or extraaxial fluid collection.nificant mass effect. Chronic change: Scattered patchy foci of low attenuation are present within supratentorial white matter which is a nonspecific finding but likely represents mild microvascular ischemia. Parenchyma: There is mild generalized volume loss. Stable mild linear right frontal subcortical gliosis. Ventricles: The ventricles are within normal limits of size and configuration for age, improved since 10/15/2023. Paranasal sinuses and skull base: The visThe visualized paranasal sinuses are grossly clear.ull base and imaged soft tissues are unremarkable. I ESSION: RIGHT OCCIPITAL APPROACH VENTRICULOSTOMY CATHETER WITH INTERVAL IMPROVEMENT OF VENTRICULAR SIZE SINCE 10/15/2023. 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 TECHNIQUE: Serial axial images without IV contrast were obtained from the vertex to the foramen magnum. MQ: CTBWO_3 CT Radiation dose: Integrated Dose-Length Product (DLP) for this visit = 900 mGy*cm CT Dose Reduction Employed: No dose reduction techniques were required COMPARISON: Head CT dated 10/15/2023, 10/09/2023, 11/15/2022 RESULT: Post-operative change: There is right occipital approach ventriculostomy catheter, extending to the frontal horn of the right lateral ventricle, unchanged since 10/15/2023. Acute change: No evidNo evidence of an acute infarct or other acute parenchymal process.morrhage: No evidNo evidence of acute intracranial hemorrhage.hemorrhagic transformation score: Not AppNot ApplicableLesion / Mass Effect: There iThere is no evidence of an intracranial mass or extraaxial fluid collection.nificant mass effect. Chronic change: Scattered patchy foci of low attenuation are present within supratentorial white matter which is a nonspecific finding but likely represents mild microvascular ischemia. Parenchyma: There is mild generalized volume loss. Stable mild linear right frontal subcortical gliosis. Ventricles: The ventricles are within normal limits of size and configuration for age, improved since 10/15/2023. Paranasal sinuses and skull base: The visThe visualized paranasal sinuses are grossly clear.ull base and imaged soft tissues are unremarkable. I ESSION: RIGHT OCCIPITAL APPROACH VENTRICULOSTOMY CATHETER WITH INTERVAL IMPROVEMENT OF VENTRICULAR SIZE SINCE 10/15/2023. Laundry Aid: [facility] Transcribe Date/Time: Oct 29 2023 3:34P Dictated by : JAYDEN MALHOTRA MD This examination was interpreted and the report reviewed and electronically signed by: JAYDEN MALHOTRA MD on Oct 29 2023 3:41PM EST [facility] SystemRadiology Study observation (narrative)The [facility] SystemCT Head WO contrastOrdered By: Ccf Provider on [id number] ClinicComprehensive metabolic 2000 panelon 03-03-8403Xgnwycg [Mass/Vol]3.6 g/dLLow3.9 - 4.9 g/dL [facility] ClinicALP [Catalytic activity/Vol]181 U/LHigh34 - 123 U/LCleveland ClinicALT [Catalytic activity/Vol]9 U/L7 - 38 U/LCleveland ClinicAnion gap [Moles/Vol]9 mmol/L8 - 15 mmol/LCleveland ClinicAST [Catalytic activity/Vol]11 U/LLow13 - 35 U/LCleveland ClinicBilirubin [Mass/Vol]0.3 mg/dL0.2 - 1.3 mg/dL [facility] ClinicCalcium [Mass/Vol]8.9 mg/dL8.5 - 10.2 mg/dLThe [facility] Chloride [Moles/Vol]104 mmol/L98 - 107 mmol/LCleveland ClinicCO2 [Moles/Vol]28 mmol/L22 - 30 mmol/LCleveland ClinicCreatinine [Mass/Vol]0.60 mg/dL0.58 - 0.96 mg/dLThe [facility] SystemGFR/1.73 sq M.predicted among non-blacks MDRD (S/P/Bld) [Vol rate/Area]105 mL/min/{1.73_m2}- PINFCleveland ClinicComment on above: Estimated Glomerular Filtration Rate (eGFR) is calculated using the 2020 CKD-EPI creatinine equation. This equation utilizes serum creatinine, sex, and age as parameters. The creatinine assay has traceable calibration to isotope dilution- mass spectrometry. Refer to KDIGO guidelines for clinical interpretation. In patients with unstable renal function, e.g. those with acute kidney injury, the eGFRmay not accurately reflect actual GFR.Glucose [Mass/Vol]100 mg/yFXizu35 - 99 mg/dLThe Metrohealth SystemComment on above:The [place] Diabetes Association (ADA) provides guidance for cutoff values for fasting glucose andrandom glucose. The ADA defines fasting as no caloric intake for at least 8 hours. Fasting plasma gl ucose results between 100 to 125 mg/dL indicate [...] Standards of Medical Care in Diabetes 2016, [place] Diabetes Association. Diabetes Care. 2016.39(Suppl 1). Interpretation and review of laboratory resultsAbnormalCleveland ClinicPotassium [Moles/Vol]4.2 mmol/L3.7 - 5.1 mmol/LCleveland ClinicProtein [Mass/Vol]6.0 g/dL Low6.3 - 8.0 g/dLBarnesville Hospitalodium [Moles/Vol]141 mmol/L136 - 144 mmol/L [facility] SystemUrea nitrogen [Mass/Vol]15 mg/dL7 - 21 mg/dLThe [facility] MAGNESIUMon [id number] [Mass/Vol]2.1 mg/dL1.7 - 2.3 mg/dLThe [facility] SystemNo Panel Informationon 15-43-9889Mpmzmwyglqxcuc and review of laboratory resultsNormalCselect medical specialty hospital - akronand The [facility] Medical CenterPHOSPHORUS INORGANICon 10-29-2023 Phosphate [Mass/Vol]3.5 mg/dL2.7 - 4.8 mg/dLMercy Health Clermont Hospital-REACTIVE PROTEINon [id number] [Mass/Vol]mg/dLNINF - 0.9 mg/dLOhioHealth [facility] W Auto Differential panel (Bld)on [id number] (Bld) [#/Vol]0.03 10*3/uLNINF [facility] SystemBasophils/100 WBC (Bld)0.5 %[facility] SystemDifferential cell count method Nom (Bld)AutoCleveland ClinicEosinophils (Bld) [#/Vol]0.12 10*3/uL NINFCleveland ClinicEosinophils/100 WBC (Bld)2.2 %[facility] SystemErythrocyte distribution width (RBC) [Ratio]17.8 %High11.5 - 15.0 %[facility] Hematocrit (Bld) [Volume fraction]32.6 %Low36.0 - 46.0 %[facility] Hemoglobin (Bld) [Mass/Vol]10.1 g/dLLow11.5 - 15.5 g/dLThe Metrohealth SystemImmature granulocytes (Bld) [#/Vol]0.03 10*3/uLNINFThe [facility] SystemImmature granulocytes/100 WBC (Bld)0.5 %[facility] SystemInterpretation and review of laboratory resultsAbnormalCleveland ClinicLymphocytes (Bld) [#/Vol]0.93 10*3/uL LowThe Metrohealth SystemLymphocytes/100 WBC (Bld)16.9 %[facility] HospitalH (RBC) [Entitic mass]27.6 pg26.0 - 34.0 pgCleveland Alomere Health HospitalHC (RBC) [Mass/Vol]31.0 g/dL30.5 - 36.0 g/dLProMedica Flower HospitalV (RBC) [Entitic vol]89.1 fL80.0 - 100.0 fLCleveland ClinicMonocytes (Bld) [#/Vol]0.48 10*3/uLNINFThe [facility] Monocytes/100 WBC (Bld)8.7 %[facility] ClinicNeutrophils (Bld) [#/Vol]3.91 10*3/uLThe Metrohealth SystemNeutrophils/100 WBC (Bld)71.2 %[facility] ClinicNucleated RBC (Bld) [#/Vol]NINFCleveland ClinicNucleated RBC/100 WBC (Bld) [Ratio]0.0 % /100 WBCWhite Hall ClinicPlatelet mean volume (Bld) [Entitic vol]8.9 fLLow9.0 - 12.7 fLClevelformerly albem[facility]le hospital ClinicPlatelets (Bld) [#/Vol]476 10*3/uLHighThe Metrohealth SystemRBC (Bld) [#/Vol]3.66 10*6/uLLow3.90 - 5.20 m/uLThe Metrohealth SystemWBC (Bld) [#/Vol] 5.50 10*3/uLKettering Health DaytonComprehensive metabolic 2000 panelon 36-31-0690Rbxdmwf [Mass/Vol]3.6 g/dLLow3.9 - 4.9 g/dLWhite Hall ClinicALP [Catalytic activity/Vol]195 U/LHigh34 - 123 U/LCleveland ClinicALT [Catalytic activity/Vol]10 U/L7 - 38 U/LCleveland ClinicAnion gap [Moles/Vol]11 mmol/L8 - 15 mmol/LCleveland ClinicAST [Catalytic activity/Vol]12 U/LLow13 - 35 U/L [facility] SystemBilirubin [Mass/Vol]0.3 mg/dL0.2 - 1.3 mg/dLThe [facility] Calcium [Mass/Vol]8.9 mg/dL8.5 - 10.2 mg/dLThe [facility] SystemChloride [Moles/Vol] 104 mmol/L98 - 107 mmol/LCleveland ClinicCO2 [Moles/Vol]27 mmol/L22 - 30 mmol/L [facility] SystemCreatinine [Mass/Vol]0.62 mg/dL0.58 - 0.96 mg/dLThe [facility] GFR/1.73 sq M.predicted among non-blacks MDRD (S/P/Bld) [Vol rate/Area]104 mL/min/{1.73_m2}- PINFCMercy Health St. Charles HospitalComment on above:Estimated Glomerular Filtration Rate (eGFR) is calculated using the 2020 CKD-EPI creatinine equation. This equation utilizes serum creatinine, sex, and age as parameters. The creatinine assay has traceable calibration to isotope dilution-mass spectrometry. Refer to KDIGO guidelines for clinical interpretation. In patients with unstable renal function, e.g. those with acute kidney injury, the eGFRmay not accurately reflect actual GFR.Glucose [Mass/Vol]106 mg/pFEiex27 - 99 mg/dL [facility] SystemComment on above:The [place] Diabetes Association (ADA) provides guidance for cutoff values for fasting glucose andrandom glucose. The ADA defines fasting as no caloric intake for at least 8 hours. Fasting plasma gl ucose results between 100 to 125 mg/dL indicate [...] Standards of Medical Care in Diabetes 2016, [place] Diabetes Association. Diabetes Care. 2016.39(Suppl 1). Interpretation and review of laboratory resultsAbnormalCleveland ClinicPotassium [Moles/Vol]4.0 mmol/L3.7 - 5.1 mmol/LCleveland ClinicProtein [Mass/Vol]6.1 g/dL Low6.3 - 8.0 g/dLBarnesville Hospitalodium [Moles/Vol]142 mmol/L136 - 144 mmol/L [facility] SystemUrea nitrogen [Mass/Vol]15 mg/dL7 - 21 mg/dLThe [facility] System MAGNESIUMon 37-68-6094Ylcmwlfvz [Mass/Vol]2.0 mg/dL1.7 - 2.3 mg/dLThe [facility] SystemNo Panel Informationon 81-65-3361Ixcparfgelibgq and review of laboratory resultsNormalCGood Samaritan HospitalPHOSPHORUS INORGANICon 10-25-2023 Phosphate [Mass/Vol]3.3 mg/dL2.7 - 4.8 mg/dLThe [facility] SystemBasic metabolic 2000 panelon 73-92-2658Kswxr gap [Moles/Vol]7 mmol/LLow8 - 15 mmol/LCleveland Clinic Calcium [Mass/Vol]8.7 mg/dL8.5 - 10.2 mg/dLWhite Hall ClinicChloride [Moles/Vol] 105 mmol/L98 - 107 mmol/LCleveland ClinicCO2 [Moles/Vol]29 mmol/L22 - 30 mmol/L [facility] SystemCreatinine [Mass/Vol]0.59 mg/dL0.58 - 0.96 mg/dLThe [facility] System GFR/1.73 sq M.predicted among non-blacks MDRD (S/P/Bld) [Vol rate/Area]105 mL/min/{1.73_m2}- PINFCMercy Health St. Charles HospitalComment on above:Estimated Glomerular Filtration Rate (eGFR) is calculated using the 2020 CKD-EPI creatinine equation. This equation utilizes serum creatinine, sex, and age as parameters. The creatinine assay has traceable calibration to isotope dilution-mass spectrometry. Refer to KDIGO guidelines for clinical interpretation. In patients with unstable renal function, e.g. those with acute kidney injury, the eGFRmay not accurately reflect actual GFR.Glucose [Mass/Vol]97 mg/dL74 - 99 mg/dL [facility] SystemComment on above:The [place] Diabetes Association (ADA) provides guidance for cutoff values for fasting glucose andrandom glucose. The ADA defines fasting as no caloric intake for at least 8 hours. Fasting plasma gl ucose results between 100 to 125 mg/dL indicate [...] Standards of Medical Care in Diabetes 2016, [place] Diabetes Association. Diabetes Care. 2016.39(Suppl 1). Interpretation and review of laboratory resultsAbnormalCleveland ClinicPotassium [Moles/Vol]3.8 mmol/L3.7 - 5.1 mmol/LCleveland ClinicSodium [Moles/Vol]141 mmol/L136 - 144 mmol/LCleveland ClinicUrea nitrogen [Mass/Vol]11 mg/dL7 - 21 mg/dLOhioHealth [facility] W Auto Differential panel (Bld)on 10-11-0129Epwbsgvfi (Bld) [#/Vol]0.03 10*3/uLNINFThe Metro[facility] SystemBasophils/100 WBC (Bld)0.5 % [facility] SystemDifferential cell count method Nom (Bld)AutoClevelOhioHealth Southeastern Medical Center Eosinophils (Bld) [#/Vol]0.24 10*3/uLNINFThe [facility] SystemEosinophils/100 WBC (Bld)4.1 %[facility] SystemErythrocyte distribution width (RBC) [Ratio]17.8 %High 11.5 - 15.0 %[facility] SystemHematocrit (Bld) [Volume fraction]31.6 %Low36.0 - 46.0 %[facility] SystemHemoglobin (Bld) [Mass/Vol]9.8 g/dLLow11.5 - 15.5 g/dL [facility] SystemImmature granulocytes (Bld) [#/Vol]0.03 10*3/uLNIMemorial Health SystemImmature granulocytes/100 WBC (Bld)0.5 %[facility] SystemInterpretation and review of laboratory resultsAbnormalClevelOhioHealth Southeastern Medical CenterLymphocytes (Bld) [#/Vol] 1.11 10*3/uLThe Metrohealth SystemLymphocytes/100 WBC (Bld)19.2 %[facility] HospitalH (RBC) [Entitic mass]27.7 pg26.0 - 34.0 pgClevelSteven Community Medical CenterHC (RBC) [Mass/Vol] 31.0 g/dL30.5 - 36.0 g/dLProMedica Flower HospitalV (RBC) [Entitic vol]89.3 fL80.0 - 100.0 fLCleveland Canby Medical CenterMonocytes (Bld) [#/Vol]0.54 10*3/uLNINFThe [facility] Monocytes/100 WBC (Bld)9.3 %[facility] SystemNeutrophils (Bld) [#/Vol]3.84 10*3/uLThe [facility]health SystemNeutrophils/100 WBC (Bld)66.4 %[facility] SystemNucleated RBC (Bld) [#/Vol]NINFCleveland Canby Medical CenterNucleated RBC/100 WBC (Bld) [Ratio]0.0 % /100 WBCThe Metrohealth SystemPlatelet mean volume (Bld) [Entitic vol]8.8 fLLow9.0 - 12.[address] Charles HospitalPlatelets (Bld) [#/Vol]548 10*3/uLHighThe Metrohealth SystemRBC (Bld) [#/Vol]3.54 10*6/uLLow3.90 - 5.20 m/uLThe Metrohealth SystemWBC (Bld) [#/Vol] 5.79 10*3/uLKettering Health DaytonMAGNESIUMon [id number] [Mass/Vol]1.9 mg/dL1.7 - 2.3 mg/dLThe [facility] SystemNo Panel Informationon 32-66-5559Uedphkibuyxyus and review of laboratory resultsNormalCHolzer Health SystemPHOSPHORUS INORGANICon 62-59-0230Tgytaqhmv [Mass/Vol]3.0 mg/dL 2.7 - 4.8 mg/dLThe Metrohealth SystemCoding Summary.on 30-44-7879Lhefnx Summary. GUEKFbym00YPd4cLu+PGhlYWQ+TC9WRHBuU03ztSMxuH7hZ4HCPLzODwqzDYIGGLhXHnGotfWuGS4kpA NjZXJu [file] [id number] (more content not included)...[facility] Clinical Summaryon [id number] Clinical Summary [place] [address] ED Clinical Summary Person Information Name: CHIKIS TOBAR [facility] Age: 58 Years : 1965 Sex: Female Language: Anguillan PCP: KALLI SIMONS MD Marital Status: Single Visit Id: Visit Reason: Ankle injury - Minor; Fall; Ankle pain-swelling; FALL Speciality: Acuity: 3 Enc Type: Emergency Med Service: Emergency Arrival: 10/06/2023 11:39:45 Discharge: 10/06/2023 23:45:00 LOS: 000 12:06 Checkin: 10/06/2023 11:39:45 Checkout: 10/06/2023 23:45:00 Dispo Type: Critical Access Hosp EVENTS: Event Name Event Status Request Date/Time Start Date/Time Complete Date/Time Arrive Complete 10/06/2023 11:39:45 10/06/2023 11:39:45 10/06/2023 11:39:45 Document Home Meds Request 10/06/2023 11:39:45 Triage Complete 10/06/2023 11:39:45 10/06/2023 11:47:19 10/06/2023 11:47:19 Bed Assign Complete 10/06/2023 11:40:48 10/06/2023 11:40:48 10/06/2023 11:40:48 Dr Exam Complete 10/06/2023 11:40:48 10/06/2023 11:41:23 10/06/2023 11:41:23 RN Exam Complete 10/06/2023 11:40:48 10/06/2023 13:02:42 10/06/2023 13:02:42 Registration Complete 10/06/2023 11:41:23 10/06/2023 12:12:38 10/06/2023 12:12:38 X-Ray Complete 10/06/2023 11:57:22 10/06/2023 12:14:42 10/06/2023 12:18:01 Reg Complete Request 10/06/2023 12:12:38 Reg Bed Request Complete 10/06/2023 12:12:38 10/06/2023 12:12:38 10/06/2023 12:12:38 Wet Read Request 10/06/2023 12:18:01 Meds Admin Complete 10/06/2023 13:00:53 10/06/2023 13:11:09 Fall Risk Request 10/06/2023 13:02:42 Meds Admin Complete 10/06/2023 14:26:49 10/06/2023 14:36:50 Dr Exam Complete 10/06/2023 15:29:59 10/06/2023 15:29:59 10/06/2023 15:29:59 Registration Request 10/06/2023 15:29:59 Patient Care Request 10/06/2023 15:55:22 Transfer Complete 10/06/2023 15:55:22 10/07/2023 00:15:45 10/07/2023 00:15:45 Meds Admin Complete 10/06/2023 16:04:20 10/06/2023 16:18:49 Meds Admin Complete 10/06/2023 19:43:59 10/06/2023 19:48:56 Meds Admin Complete 10/06/2023 22:56:58 10/06/2023 23:19:41 Discharge Complete 10/07/2023 00:15:45 10/07/2023 00:15:45 10/07/2023 00:15:45 ADDRESS: [address] [place] [address] [address] [place] [phone] PHYS DOC NOTES: MEDICAL INFORMATION: Prescriptions Given: PATIENT EDUCATION INFORMATION: Instructions: Follow up: DIAGNOSIS: 1:Fall; 2:Fracture of left tibia and fibula; 3:Unable to ambulate; Unspecified fracture of shaft ofleft fibula, initial encounter for closed fractureNormal [facility] CenterED Patient Education Noteon [id number] Patient Education NoteNormalMarion Hospital Medical CenterED Patient Summaryon [id number] Patient Summary [place] [id number] Patient Discharge Instructions Person Information Name: CHIKIS TOBAR Age: 58 Years Arrival Date: 10/06/2023 11:39:45 Discharge Diagnosis: 1:Fall; 2:Fracture of left tibia and fibula; 3:Unable to ambulate; Unspecifiedfracture of shaft of left fibula, initial encounter for closed fracture Primary Care Physician: KALLI SIMONS MD Provider Information Primary Provider: Tree Craft M.D. Advanced Rivet Hammer Machine Operator:None The exam and treatment you received in the Emergency Department were for an urgent problem and are not intended as complete care. It is important that you follow up with a doctor, nurse practitioner,or physician?s captain assistant for ongoing care. If your symptoms become worse or you do not improve as expected and you are unable to reach your usual health care provider, you should return to the Emergency Department. We are available 24 hours a day. CHIKIS TOBAR has been given the following list of patient education materials, prescriptionsand follow-up instructions: Follow-up Instructions: In the event that this physician does not participate in your insurance network, please consult with your insurance company to find a nearby participating provider. Patient Education Materials: A MESSAGE TO ALL PATIENTS REGARDING OPIOIDS PRESCRIPTION OPIOIDS: WHAT YOU NEED TO KNOW Prescription opioids can be used to help relieve bpmatjfz-it-pbksxu pain and are often prescribed following a surgery or injury, or for certain health conditions. These medications can be an important part of the treatment but also come with serious risks. It is important to work with your healthcare provider to make sure you are getting the safest, most effective care. WHAT ARE THE RISKS AND SIDE EFFECTS OF OPIOID USE? Prescription opioids carry serious risks of addiction and overdose, especially with prolonged use. An opioid overdose, often marked by slowed breathing, can cause sudden . The use of prescription opioids can have a number of side effects as well, even when taken as directed: ? Tolerance?meaning you might need to take more of the medication for the same pain relief ? Physical dependence?meaning you have symptoms of withdrawal when a medication is stopped ? Increased sensitivity to pain ? Constipation ? Nausea, vomiting, and dry mouth ? Sleepiness and dizziness ? Confusion ? Depression ? Low levels of testosterone that can result in lower sex drive, energy, and strength ? Itching and sweating RISKS ARE GREATER WITH: ? History of drug misuse, substance use disorder, or overdose ? Mental health conditions (such as depression or anxiety) ? Sleep apnea ? Older age (65 years and older) ? Avoid alcohol while taking prescription opioids. Also, unless specifically advised by your health care provider, medications to avoid include: ? Benzodiazepines (such as Xanax or Valium) ? Muscle relaxants (such as Soma or Flexeril) ? Hypnotics (such as Ambien or Lunesta) ? Other prescription opioids KNOW YOUR OPTIONS Talk to your health care provider about ways to manage your pain that don?t involve prescription opioids. Some of these options may actually work better and have fewer risks and side effects. Optionsmay include: ? Pain relievers such as acetaminophen, ibuprofen, and naproxen ? Some medication that are also used for depression or seizures ? Physical therapy and exercise ? Cognitive behavioral therapy, a psychological, goal-directed approach, in which patients learn how to modify physical, behavioral, and emotional triggers of pain and stress. IF YOU ARE PRESCRIBED OPIOIDS FOR PAIN: ? Never take opioids in greater amounts or more often than prescribed. ? Follow up with your primary health care provider. o Work together to create a plan on how to manage your pain. o Talk about ways to help manage your pain that don?t involve prescription opioids. o Talk about any and all concerns and side effects. ? Help prevent misuse and abuse o Never sell or share prescription opioids. o Never use another person?s prescription opioids. ? Store prescription opioids in a secure place and out of reach of others (this may include visitors, children, friends, and family). ? Safely dispose of unused prescription opioids: Find your community drug take- back program or [employer] mail-back program, or flush them down the toilet, following guidance from the Food and Drug Administration (www.fda.gov/Drugs/ResourcesForYou). ? Visit www.cdc.gov/drugoverdose to learn about the risks of opioids abuse and overdose. ? If you believe you may be struggling with addiction, tell your health wound care physician and ask for guidance or call [facility]?S National Helpline at 5-171-842-KBCM. x Source: US Department of Health and Human Se (more content not included)... [facility] HospitalEMS Documentationon [id number] Documentation Please click on link to see report [id number]SvbIdCeOT5cqj5MPZzFW1RtHMQ0JtC 4Er4PBZuePRt0GDAeFP5 UK9uhYWKlPGN4Yv2JsB2rZHIxcoRiSJOVT52qYuslGcTuUGnvPWNzGXA7DLgWJv2sXSIrKLKxUGFaRIA gICAgICAgICAgICAgICA gICAgICAgICAgICAgICAgICAgICAgICAgICAgICAgICAgICAgICAgICAgICAgICAgDQplbmRvYmoNCg0 KuGKcWa4NVGngUxVVDoG xQCFuRSFnVnEzJORbSWOvok4USLHpYFUiWVI1MPBgHLHlJOPcPNikJETwQFScZAn3CWZmOITgDA3GLvV oHBHdQWC8NPKqSIBjDTN hzv4SDPSpCKAbMPn6LVTwTRFnZYEhUGtvROKbYDHfJbCjIZUuAAMlST9PQdKtZTYpQMWgINQfRRKhMNH qge5EPBAaNVAuEwZfHJT gEPThVIObQExoRNVdHBKwHYQ5BYKkXOUkMO1KYjFgFPWsCYF0XbYsLFVxTGRjlo3XCBDhMDBfKgtrSDP wMDAwMCBuDQowMDAwMDA qKCl7VBYxKQHaDB6XEyDiKNVbKYI6BvAuUKEjJUOmzi4NPWJwAMIhAhUnUqCcNFFlRYMaLZmaWZZwVAX aVZC0BDGhODRhWE2XUrO vQAAnDECtDJLeYNUgNMAkbs1TSLOsTKUtBRZ6PVMbCABoYZKtYJkkFAIyGIE4JvG6KLEpFNWbMS9NFxD qRVSrPQA0DfFpUJLpBKF qsw8RYFHaKCRzTXNjBlMfADHcUKIuRRzaDBXmTDJ1GND6IYIyGUAnKM1YEqErNYHiPAT7DRShVOQcMZQ coo3FTHGaWVDzDIJ8TFU dCUEeDFKpGEknWMRgGWG2MiF1JNQgWHEiKF1XKrYlIYPvUMp9MZhnXFCnVZArom3MbRMsmJmkwy1QBZe UK3fIYQz8KALnDVHXOuJ ROyKxWxZiO2M0LuyJWIyYYHVqCWmXXEe+AmtHFCS1QxOGXLnZYNt0ZZPHMJxLRWGfVkD9ViXvAVs1Xg6 pMg2PxgP7PVB5RCMqUwq nZy6cnODqKXIyDBMCU8DtlrEgYCGDF8KgoUUuYFViO4QUFVD4Zu69IxosbQlPBDQ3MOEZRYooKM9VWmk NHbSsHEauWu24X9DIp3P 0FcNnC1SJrPuPrxXUTJelC4uOjCB0d5gmlNsKdMTBmZybCMkHbjiQlnRJPZjcVQNQyP15jkiPV7EaVTh 6I6RHFo0VDEblGaLtzZ0 AeUstNRH1bM5nMEZXFOvTAnciRD4IZOECMJi8JSb+PiAgICAgICAgICAgICAgICAgICAgICAgICAgICA gICAgICAgICAgICAgICA gICAgICAgICAgICAgICAgICAgICAgICAgICAgICAgICAgICAgICAgICAgICAgICAgICAgICAgICAgICA gICAgICAgICAgICAgICA gICAgICAgICAgICAgICAgICAgICAgICAgICAgICAgICAgICAgICAgICAgICAgICAgICAgICAgICAgICA gICAgICAgICAgICAgICA gICAgICAgICAgICAgICAgICAgICAgICAgICAgICAgICAgICAgICAgICAgICAgICAgICAgICAgICAgICA gICAgICAgICAgICAgICA gICAgICAgICAgICAgICAgICAgICAgICAgICAgICAgICAgICAgICAgICAgICAgICAgICAgICAgICAgICA gICAgICAgICAgICAgICA gICAgICAgICAgICAgICAgICAgICAgICAgICAgICAgICAgICAgICAgICAgICAgICAgICAgICAgICAgICA gICAgICAgICAgICAgICA sJSIeWRYzCJ5Bs8OzztP5atYmBKnsXQvsXNMFGx3UDBfnPGAeOE7yvr2XHEqBZ86wiCNkNXLnASR5FHT rDvxzZ9ZfdyUqlYvemwI aTsDmQPNCKy3HcAMYTTeqY9M9sAobVKQeABMfULMXKp5BNAsxAQ2iYWPfWSAsOu3zCWwcHIViCOKfFCP cOOWXMv6ThRSyIH9ACHK poY1eQs7+THtdkzIfHoxMNp4CUNxfVIKzVyxDFvt7Zt2NlEj9PLLeF9PyJEAsHZUct4GjTl4ZEL0adKq hWWKnDr6PSYp7Xp2+DQp buOHgCI7TFkbhF7GfRAGkNCJwJZHe5YZZgTFsRQJhKYTCXLQoiz3C6BkCxASnrisEaYMLLXNiJZqUH9o 6JnDrB6J1vQlNXMBPE1N 6QjKFYPFwL2XMrTiSiE9RiOsU+PWT8kGnKzTzQQaIKGZHyO2zh9PARzWRUzQHHByOwqzCxs1A5QPawaA IGI4LIv9GAP7dt2UtYPZ eBSsefzUuQuiPMa0FRgEmVNNeRdqGGbi6Fr3Rl239AO56fsWuUclhDJANEAphGDOwpGNJv9mvFtXyNVS 4OAOqEkrgAFarQZEyOK5 1KBK1TTJyAiovZaMgf6ErZ3EuAJa8Oo1LY8KcLAO8WZx8Tk7WAMUnIjGvZZXnURYLXj4XEx3FP5F5eHJ aI8UsM8FRPl0YWeGjMO2 wox4SENjqKNNtZI3htt2JQGcLB2ZIs8spYnKwHFO5RGAePmpnBKwmWrpsaOLdSF4IzLA4AINaX13iETz pHDQjT4UnJLj7Ez9JLVN zxLLhZFJpNTsVD1pICmgzO4BfXGrUF9wnRcJ4UBJ3RTWkZvw+Pgo+FcppA3EwlAbtLILqOy0dqWppTLh kBFNvZM3txcXncUl+Pg0 Ul4MxXUNnMTw7tEXU2LEz9ZTkNCPfYMZ1ABKajxQJYXsc7AhPcTUvDkCxaJOdB9jzQAMz82mJTMLcZpv Gu0tnZxZt4ZuZVW+XK5C IeyRnXhWusd7CMWunbvIygVThUY2FRiSeDG1hgk0SCDmsIdGtWX6hhb4QRAcFU5AYZD0Jj6RvMPqVL5V BXTLBQ0pRZMMOV5sPUDS EA0uCBNUHO21JBYYCP2YPYMUppRHKE5ReAHJVXz3SFsXtJG4yoc1SFZqdAyGnQR0zjm7TXAiSY2DGLT8 Mr4PkLCtBT3VsNFKNRu9 WPbHxRV4bau4VDMiiAOGnUS0spm4FWYrVU2PYLZ7Yd2IzYRuLK1RUIESOZ2cOVPVMW3oEHQURP9oBKLM KE17EJVOBV5TRKWZlwYW RL4CiUKPJXz7EMlLcRU8yhq8RFAtsNZYqZE7ubp4UTLnVV7Yzd4XYt843ZH9JQJUMR2ItF081zmsjbd0 hg4XLSZVoeAJEMBenQTR xK1RaXWNvqATbzwJbGYagYtHyXXRbCf8ZulFvIYenPvFoARGernGzsZmvQMayI8BqbYqpBWCySYmtMGR IO0XoXZ2mK46lXSAwWBI xKSAWL8G5kYLrI4ItvcCARo4FOkQcCB9mup2DVAgnHgOsWX3fww5ZFEaCF4Hqg7XKi819FU6SAUDGZ9H rV714tmiunz6to7DBMES gkGENGEkmN3cEJ8ycmFFxJQ1kncU2FKtbJ2DtXMPqhiknIEwrNJ71fFH0BEqnNwQxjQO7bziyJBNnm5X qEVliV3XcuNympCDmnST wCj4+Ul5HGLQKi4eOGR8zeLAoVSLpviCzqCkRJ0SELBSNI3EedcEWXIFydkhegD8yWGJ3KPVtAqetT5H goRyaADDxJ7tSTf3myLS 9nRGxDf5GjFHwJY4Rz580El8IGLyzDJhtLTCtQD1sXKs6Yg6JSc3PZzDsNO4cne8VEYmqEzQfFN9tsf0 GPYyCV6IrD1GvsIT5LaO bLKO5VAYSD1JijXtiiOojjIJ0UDPkBhx6ZHfEI6Gmi9NguwXrMbXcToW1Luw5Hf3TgUHsyxVrQNnbFk3 ivTCKy5mzDi9pTQQzFRa 9IIOnYKboZT97WYwwWaG3VVXcHyTpYSNjJMMyOE9tVEH8KV2XV6XgxwPRlVayLqHrTZDzBEAEF5BkrxG FGB6lPO5BHFCEP7IsL24 8zavrbz1bf2QMXTPrxXVWJKzbFBRumAutOD7yeAKeVAhpS6AmdRNgVdHsUIzaISzWH7L8zHImI6RktdW SPBFycbfzbG3yWl2+DQp vpgVbKfkCQd3WStjuGAJfWfsPJwr4Ho4VaLl1XJTeP8PiFLBbYHDhb0PwJb9TQH2rpCoxItJ8Tw8+DQp gjMCzTQ8ZTsciRGQRstW hLBU4AeFT8CEShOU8nCHPVmWP/OYqG7GetTbgxkAVoozYnORZweRCrdD7y4BLxOvKrYHOI+9+Ql1O2mo eWaaB0YrgAjvRKEod4lu cEo5O9GzPIMI8iAAApsUWHinBq232Zhh/2B4XQkd9SLld7+OYIkofj8uaw5snifQOR5xMqbOa0EPFZ+d eyzI8vuP1e+O9Ccs+eu6 Yt1RVN0pXjgYpVkCuJJbGJeFHIU6TS9Y1IWQk/78Kaf664s55XEkPasHsKOVNMCcGEBg3pTEfmH9lfI9 SHv/y7s8/oyytKOmJcmu tpLZSJnJCbRntebDvo7eZinO/UPFEHQgsSrJLsh/JLsl+1WvQ1xb0i74zQnwo1tjwhGii5nsia26PASb q972aoz3oM27yuz7FAwX oHCW2mvNbdH9RPO3cl6DmETsNNqJ1QXCec1RiEIq3IPudSkAlGMAhqqGjJ6gQYChDNjmPw0TtbXQjSqA 7UPHMFBweWUTaJ6IzQOQ fmHIngoMjAZlfWZOeUFJsYb1QcdNdUUgnZkZrIUKxhbFbnClkBCxiP1UgwNvkWHTsTWbgGASPX7JdKX7 oP40eIAQpDwQcXOXKN7A 0tZHkF3HnrcGVHq2MAjHbKD1dya1NRNcbMJMkND8gmy7ZCXqAF8Ekl8CMq148AC2BA1xQZNJyJ512wfb cqv9gd3CXWIMVT5NDMZM 3c2CsnIdwSt5tAKiUA25rYGGazP9iXDsBRRYssYn6yIvCR0RuM4kqxBU4LBxIRE (more content not included)...[facility] HospitalEMS DocumentationPlease click on link to see reportNoDelaware County HospitalComment on above:Result Comment: Missing Attachment - attachment exceeds size limitation [email or web address] Can be viewed in source systemTransfer Documentson 10-07-2023 Transfer [id number]#1.00TIFUC Medical CenterConsent for Treatmenton [id number] for Treatment [id number]#1.00TIFFairfield Medical Center CenterED Noteon [id number] NoteDrGiancarlo Nevarez in Neuro. Surgery accepted this patient to [facility]. Await bed assignment. Upon accepting patient, Dr. Nevarez advised Dr. Craft that they had beds available at [facility], but they haven't been able to assign one as of 1730. [id number] Health Springfield CenterED Note-Physicianon [id number] Note-PhysicianBasic Information Time Seen: Venancio Jones, AstrPatient's [facility]06/2023 11:41 Chief Complaint patient presents with left ankle pain after falling on this afternoon d/t knee muscle spasm. denieshitting head, LOC or use of blood thinner History of Present Illness The patient is a 58-year-old female past medical history of hydrocephalus status post 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 placed in May 2022 at [facility] and removed in June at [facility], bladder cancer status post bladder removal with urostomy who presented to the emergency room with left anklepain. The patient states she gets this spasms on her legs and prior to the arrival she was in the bathroom she tried to scoot up and she fell to the floor. The patient states she twisted her left ankle. She denies hitting her head. She denies any headache. Denies any neck pain denies any back pain.The patient denies any abdominal pain. She is complaining of pain on the left ankle. She states thepain is on the lateral aspect of the left ankle. The patient states currently pain is 3 out of 10 because EMS gave her fentanyl. The patient states she uses walker to come around because her right leg has been weak since the shunt was removed from [facility] and the good leg for her supporting while walking with walker has been the left leg. The patient states she gets leg spasms since the shunt has been removed. The patient denies any other associated symptoms. Review of Systems Additional ROS info: Except as noted in the above Review of Systems and in the History of Present Illness all other systems have been reviewed and are negative or noncontributory. Physical Exam Vitals & Measurements T: 37.1 ?C(Oral) HR: 80(Monitored) RR: 18 BP: 159/63 SpO2: 98% HT: 167.64 cm WT: 67.8 kg BMI: 24.13 General: alert, mild distress Skin: warm, dry Head: no trauma, normocephalic Neck: Trachea midline, no tenderness, supple Eye: normal conjunctiva, sclera clear, Cardiovascular: regular rate and rhythm, Respiratory: Lungs CTA, respirations non labored, breath sounds equal, symmetrical expansion Chest wall: no deformity,notenderness Gastrointestinal: soft, non distended, no tenderness, no guarding, Back: No tenderness, Normal ROM, Normal alignment, no step-offs. Extremities: no deformity, there is swelling of the left ankle with tenderness on the medial and lateral aspect of the ankle as well as malleolar zone. Neurovascular is intact distally. Neurological: Alert and oriented, speech normal, no focal neuro deficits Psychiatric: cooperative, affect appropriate for age, Procedure Ortho-Glass short leg posterior splint applied on the left leg with padding. Neurovascular was reexamined post splint application and was intact. Medical Decision Making MEDICAL DECISION MAKING Number and Complexity of Problems Differential Diagnosis: [] [facility] Data External documents reviewed: [] My EKG interpretation: [] My CT interpretation: [] My X-ray interpretation: [] My Ultrasound interpretation: [] Decision rules/scores evaluated: [] Discussed with: Dr Cantor, Dr Bobby, Dr Ovalle, Dr Bradley Treatment and Disposition ED Course: The patient presented for fall. She does have fracture of the distal tibia and fibula onthe left. The patient has history of normal pressure hydrocephalus. She has had her 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 removed from [facility] and she is on process getting a new 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 at [facility]. The patient states she has weakness on the right leg and cramps on both legs since the shunt was removed and that is what caused her to fall down today. Initially the case was discussed with Dr. Cantor who recommends patient can be transferred to [facility] since the patient is requesting to be transferredto [facility]. He defers the decision and recommendations per the orthopedic doctor at [facility]. The transfer center has discussed the case with Dr. Reyes who has recommended that patient can go to the ER at [facility] and splint can be placed and discharged home. The patient is not able to ambulate as she has weakness on the right leg and she has fracture of the left leg andshe cannot ambulate with a walker which she was using prior to come to the emergency room. She lives alone. I discussed the case with ER physician Dr. Bobby who recommend patient be admitted to hospitalist service for SNF. The patient is requesting that we discussed with neurosurgery Dr. Oconnor. The case is discussed with Dr. Ovalle neurosurgery who states that there is no any urgent need for the 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 to be placed and he recommends that her fracture be taken care of first. The patient has been at [facility] and she is okay with being transferred to [facility]. The case was discussed with Dr. Bradley the hospitalist from [facility] who accepted patient for transfer. The patient received multiple doses of pain medication in the emergency room. The care of the patient was transitio (more content not included)...[facility] Comment on above:Result Comment: Electronically Signed By: Tree Craft M.D..br\Date and Time Signed: 10/05/2417:57 EDTPre-Arrival Noteon 13-00-3283Nod- Arrival NotePre-Arrival Summary Name: , [facility] Current Date: 10/06/2023 11:40:57 EDT Gender: Female Date of : Age: 58 Pre-Arrival Type: EMS ETA: 10/06/2023 11:57:00 EDT Primary Care Physician: Presenting Problem: fall, possible ankle fracture Pre-Arrival User: Sindi Pablo RN Referring Source: Location: [place] Completion Date/Time: 10/06/2023 11:27:00 [facility] Emergency Department Pre-Hospital Report Form Vital Signs: Pre-Hospital Report: Treatment in Route: Response to Treatment: Misc. Issues:[facility] HospitalXR Ankle 3+ Views Lefton [id number] Ankle 3+ Views LeftExam Date/Time: 10/06/2023 12:18 EDT Reason for Exam: Injury Report IMPRESSION: ACUTE FRACTURES OF THE DISTAL TIBIA AND FIBULA. EXAM: XR Ankle 3+ Views Left COMPARISON: None available HISTORY: Ankle pain FINDINGS: AP, lateral and oblique views of the ankle were obtained. FINDINGS: Comminuted fracture of the distal tibial diaphysis extending into the tibiotalar joint anteriorly with slight angulation, apex volar. Mildly displaced obliquely oriented fracture of the distal fibular diaphysis. Associated soft tissue edema. Ankle mortise appears preserved. Decreased bone mineralization. Atherosclerotic vascular calcifications. Ordering Provider: Tree Craft FINAL REPORT Dictated: 10/06/2023 1:03 pm Katie Mas DO Signed (Electronic Signature): 10/06/2023 1:03 pm Signed by: Katie Mas DO Transcribed by: ANT Technologist: CLAUDIO Technical Comments Radiation Dose: Kar in mGy = . DAP = .NormalFisher [facility] CenterCYTOLOGY NON-GYNOrdered By: Arabella Teixeira on [id number] REPORT DETAIL l2aweXLpPQHtaRHsQCMaXLmehvQyYPTiwRFtQ3LxageoOXhhTD1xOQ4ryDbnxGQcsBQgHJHmEzLaj7kj a107vUAac5vfIUTNhygc wWw2nMajT08bd4L9AtwvY4jrGBFpDYldpiNikpT7GSKctGVzHQc0VPAoaJYmzrSoDoSnTLNzxZRwtLG0 QHFcCN7muzhdXBcdXHmv VCCbiaI8TTDfzBQqC9HiEOZjGF1umcwqGMN8EGbeFUPoMFL0MrApTTIwv0Whdbz9OgRwvQBsZNxycKRx qdpiflHbRWAeUY5zRYT6 MKWoMxJqKgDmUUFzLsIvECJDVXakMYXffLYbSAxcSOC7wBSlngdvPxCkZSwxnlCoEEOjwuRcvORrNzOa kmsyHP2mamOhLUY4otRt ROSvYBM0HERkH8pxrtkvUNwbCISiIQBkKVJnf2quF1jpzYSjQGJss19hvQQjMTXew5MncUitxrFnXXWj YtFOqp5fFOAsp2WkuBJJ wZL5HQPsUAQjUHcwJTItnkPzt7iafsGlKR34aPJ5iVtaMOSky7WkSWubEGCeuCZnFI7yH05pZGWMnwNe PJJKSGW9COVomr16fLUj EBLmc3TxsZvdmyVujZMjB1UxYydvDMWyCbKcUIKeZKtmCU4dFTU8WjFoKlO6VudaQROubj99jBAdfWyk YUHwN1LvPXVpkIFqFVZtBoWamWChFJKdmfmeLXW2Snuppzxrz Clinic Work Phone: comment on above:Edited results: Previously reported on 09/13/2023 at 1:32 PM EDT.Case ReportMedical Cytology Report Case: [id number] Authorizing Provider: Molly Hendrickson APRN.STABLE HELPER Collected: 09/12/2023 01:59 PM Ordering Location: Urology Received: 09/12/2023 04:06 PM Pathologist: Arabella Teixeira MD Specimen: Urine, Midstream [facility] Work Phone: clinical History q2snoYGsMTXzz4ieWNOsaPXvOxAsSzEeRrBzVgl7XOCkvcB0Nqo4MVMeZMphmW9bXJGiOLijD1lbufSv eDGiGSKrOBg3cK5eeBgigN3cNbWbWrFkMWKisLAdCJBvYVWwwjPvsyuzJOYnmB==Ydzkescsz Clinic Work Phone: FINAL DIAGNOSIS n2kwhPPyGAXwbWBdJFPnOOkyepXiQHMsnRBkI8NzjfpxSAqtGJ1mQD6quEjyiTKoaWKvSVAuGlAhs4au p321aMIdf6hgUMYZecef yOk0zZpzY16kk9C7AslwE8ogVPLrXZwnPJPmWJnwgJDlDYuuulCyLQmwshLiqpDtCop1XDV2BTy6GFHx cGVydzEyMjQwXHBhcGVy uHZ9HZDbOU8lrcgoWgAdXP7qffiwQkKkPV8jmgz7KwQhNM5upoguFnSrRKgoOFCzmiz2QvIyFd6saVJe kZwaHScyY2venD7fOdQ4 SHqaD6bvlO9nPYr2YFaqFGSxqMB3wpbzINjaGGPpuyK7whybCXvtRCUkqAI6jaooTHicNMHgTsJ9xzlg MFxwYXJkXHBsYWluXGJc UfBdTfykBjWiGZKlTIJgfT0gWTJYfKGfvVKgEW0wwSZzBGYkPGVnXXUjHLJDLGutwDj2PARic0ZxkJre tV1ksjTtCPU3bo41gWAj xEJxFJHurjOqhz5hFG2daGTeBVJqDISzYVUwPBVvjVAtVGMkTJLxAUDwltzpDzUwjLDvQZHbPDHuHGhd FAXxbLByRPZfYdezRXThVxSbX3SyXDFzrw2=Ylqxdsflj Clinic Work Phone: Gross Description b6yrxCZpUQQahMAVBVG6PTTjPK4euQgfkNm8jAspFMWpurX3cFDjOQrlo3czINK4v7uohoOAFnspEUVi MW7uRJbtUZMoWD4dXiHh GEKoAxSmFBZuaYAinsZuYbDmTTLybWXraLY4FJUpYI5hombgXIhxSAveGTSghzF1GXZkcZDsX6VqBVQg ZM1skolmKPD6HSRWRrqw Iv9wpVVanSxqAwBaJxSoYYPnMWAaNGVbt9ruahNDilfokAa4wP9DXSCfZ3EwQV0Ls1bkGANksODgXGT8 CKgka4zfEOpxKKQ8LVWh FXMnSBTiJW3YJaFtRRQ8BLJdUmD3CqG6BRc6ZITZNTWsXFG8JLG5GfBqWEf3ONfiHFywzSNbNKYiFZAl WAVoBBroukU4d8gqKUFb fBGtONL3BUuuy8wzMTbdKAV5SFXiFqNtRREgOL2GKyNrKXG4TGAwJfH6YjK4ZJk9BHPYWySgKiKgELV1 GOB3YcHnBDz0MTo2MQmR LbNwJdf1GpX9OrV2XcW3BEP0VkZsKTAyXpGnNDDgCPXgUWelkTVuIR7etScdCTNhYG7LGPDpEGjjUZJc YjGjYG6jYUZmqcMwKQ4t VZC3jgPhmWlosJMtdDjuNCDdKMpknKOjNWQBQtvqxDKazqyayFHhbKfpreFuBMCmsISKNIK1UU9aNPQB IbhsxTHrSWGaEQh1YHKk XoQzwTYzmZHmhAdbMykhoPM2AVynTquskF0pbROJSKUGOgnEYejudiGqGG3RJAEHDhIEAP45DFYzCaF3 bXH3GB81NIKcGWKfpVOv PDvkQ006uLT8cYlpPbswyOQ9FFzoWfrchA8urYFUTNWRYxiDBmykuzFmQW5UIVSYEZ5VcYP6FSvyGFvs xZM5w3eyqHEnk9k9YUkc CUI6uSzdaXVguvpsjWNtiVjhceKsHTHecVCpsMAcfMrgQnmdcUS7SDhjOkcvdL0qzATRCLACLawVEslj siLxWY1VRKONHgGQYB49 ZOQjWdH7gYH7Ed50OKKuDGCwxPYvNEuyB131lTSihN84r6jmzNBrPFxwQgjhzUMahuX0ZKaBAIYSKKcP AmFpZW6rQJvWN6ILSdO7 OBBqEjV2aRM4Lv60ZSBdKVYlpPUoXOggY518RFWhIRmgECs8tfQmWZRcKqKeNSwjlv02GJX9a6dsvQCe IFtoNvxrvBAaxyB1CHcH ZQFFFJnGKzNyAT3qCPoWT2VCEPbBCbejQNY8UUg4T7cmnKoeMmcuueDajYWxFsDObF9dcGVnQEvcAlmh aCH3QDjhMzqqfO2vlGQK ZVPWWjfZZplcleJsJF3ERJGBPW9TuTZ8YPtnGZagvDQ0y1szlYVeg1w2EWxsKLE6sQnebVGpilaboJNy aFxmczIyICBccHJvdGVj gJolQijsmIQ8KBdiJkkbqG7jwRFVNYRWAyvJUtgifpFhWF8KFPSTIyWEJT63DAKcMmDjpIJ3UU28WGVd WFXppNFmJJwfB027j0j3 oXKqINF1fZPiWBB8MACnCFxct5slKYTbBLxfu5ShTQtFCYZCID4XEP0wvHZ0PPtDHBWMNJhjIAM4OmR4 VSv1yGnxQnwvlgTjcOIs HrIRwM9ypNqpxO6gyNZxK4qbOmEuBwUkQTEuaKUgcEGekTbrKnhzvFI4UPdqMcapoP0gsFZSNZYDOofT UmanbkOfQP9WRREWQjLK WG86FOK5ZCo9rAQ2ZV33MJAvSTJmsGCnTCtsL081VPxkumTpAGC8CRPhIKhsg9fjHVYiZAdbo8RwDHlF BNINWF5UQL4wuCV7YVcW OZMSGRljRAFpKos6KBv8lBteObxmawTkhHIyXfDOmG9diRscsE8cfJEbL3krQlDfZtHyfMRoiBRfXPDk XHBhciANClxzYTMwXGVw bMHXe4NlDHAAUbg8BICKZNQUEGaASR4GYBMEEKRAUQ3XDBfXFuKgPLR3UGJ9JK3iOeP3FQjaYFrePRLf HyN0BWoiMJegFXJmJMGi IxRptJZ0AV0vTVRcFfu1AJ5lKQOSBROKSIaCGU8IVIHHWQUUZS3SJiWqO1gXBVEAOmZiJISPMXVRLFOv EeJAMS9tL7yYZBYTZsBe GLPWPBOZPORnJG8ZYZUVVIQLZY0LJFAXP11DULZRDBERG9TWS5wJAAEjo0NQNWWUJYd9BJUxFxZ2XO7e WRzDN7qKPxpaVIJ6JAPm zFEtd67QUUORAEEFWsR7GTbbZYv8HPn9AAPUGBcVTXEDNwB5IHeeRDf5NXt5MUNCZQXTHAPZIyfwVRKh NzdcfSBQTEFDRUhPTERF Mh6QKUAVBGFNDK1EDsGoY1XJFZ3YZu1CNTCDJGLBJY5YZNzDSaXoC5TQZS2JGj5SHPLUYWEQST9JYtPp ASFFF2VVUyNAG4vtABLG NUTTFKQxFnSEQA5aHOMCQG5EGRIMXZSEO19LKLDNKDKNN1NCZK4SUMTvXJRimPOBSXK8MA4hZPxuIBNi F8SbO8ZqycU9a0bsbVwwy6GwhCXrWH5vmDMrET8WTFQkcgUpCPiognHhAEa4Ljgikphnt Clinic Work Phone: performing Lab i6mouZUyLMTup4qgMEKbzLPgBoTnYoHyDoBxTniprEByWQpktcNvLVicyrUcDSAlLgndmfcaEFAqVGS6 vcGeEKPgSLZ3DOI4HhVa m8X0AUAbTcTaRGEnGV7scTeoHZTbWO0qBUVhU5iedY3lvwy6HzEcVHNlKhB8CUIgstU4Ftl6PCFlXBsh o8blh8JnEMAaUWe6hVmg NwJlFDLti2wggvWdHnUbCXHjFCOiRSWwlUIwM090g6mgo8djnsPttGR4KVOvAWL7BBnxekQpdlX7CVqr lLWxUzF3ZWbzknOvDHcl crRmnvOgYnh1XTIhC817VAB1aHifb1liIVJ2TZEtUTAzIiCcKm5dqHSfU646YHPfCSHORWBohJk0PQFt ysVqvwRqxIPXd397C783 h3kyHYUpmiHdjKgEisjat5mpD423MXWtoWBqgoXkNuKxPGProNPsdMG7TWYbZB8ftnduVKshGXbcAAYx xeV8EWSsdLEeL3JdUUKs WD3jnyezYWO9QGjxFLCsDHL3VaWfIBNps9Cmkis9IuUqzq9qpw04RMV2e7UgsTyuQOW5KZZ0JyCaLh2a gWXaOKQtGO6dKqJbgNEh GIGxub20mUpkXEkwhxRmfY2cWqIzCZHsgJSxNDYjNY1pvAEwLFJkjW7jibhyLLNzXbQxcftxBHPfvHhp utSuQz0mtDwiGOG1TRwq N1dreE9jMxA0ODoxN7oqjO6yJVe1IUoauUF1SWPlvB8aZL8bfeiqv9vvZLkwAYkaZAOxldZ8wlH8QYEn iAPqJ5TsjD1lDOHfCK1v zqmor8zjLCM2APmnNBLkAHF3NoBvNIOga5Dsxbz6PlRtn2YzbPTwEJtfZ67nh466OKBhxlJwA8ynqZOr blxwbGFpblxmMFxmczI0 VBVeLIEfWNrnOPKjROFqZkFbxIZwBwYuFuFqdQlkxGthGMvaOsGgCSUoPQlbU5uiAyNtImLwJaPMPYGg bnrzJCnjO62znH7pGA02 ARIqjNQwhQXixP5urW1deEU9TMFlwkIsqtnaPvCsXSTrw1YaWFJxBYSoL2ydliBqTT6gIGOneA2iDabe OTUwMCBFdWNsaWQgQXZl KKXUkHW8BXehvaGyL1ziXILaXOIuXFSEOTuCGbCrHwVzDuG4YHf4ZVMehy32s9fcjZSvWHXmiYDdTsVb TTPsWUAas7exYCLpyYPd EfEpToSgGpWbBvgnmGBgYHAbJyVos5nun334nAPte6bkTUXwIaS2pGKhFMOjrGGeZ591DWHyPXzgf6po z4EjRFLmjTHcs8P1SXTT tbbpaPt4hNkfC24ja1E3BxrlQ1fsZZRzZLLbU8AbZK3oKIJwUcu9WXV3RVS0UJLvLRAnH1HsDE6iBQZy zCBqBTf6u1yiyAwkTVFu KUI7u7llBEagppZhJZ1jkk4nvKq3f0sxczKmWOLkLBEztZDKTQYnP1JmaKqqBd3vjYt8mUedDsvcRDF6 Oeg3BG1bol04xyn0cIee JUEvoxadIvX8ATniWHXlkxayDAs7MOhcEMJjcAS0OYYnoCAcE3TrBThdJA0wfgu2UDR5ANqgAGItFfW4 NDBcaGVhZGVyeTcyMFxm f057XCL4HwIqYD9cB0Msm8C2zE4dgODhTWLvmFFrPnApPGFgsm2wkYCnWQaar0GwPKR7xcL0wQAxxBNj HQPeDG33Sxpqa4TeJxqj k7LsW09yzFY9IMlza5glBG4kAeO4upDwSZsyd9vraU4wXnC7KFukRP3iJG3gSWSapY9ijrakEFBmDrFo ipxkDTCeqZanjnZnQe3i nRuoKRI3MOvsJ6sizH8vJuB2XWndB3zdhW2rGOq0CTpajYK0JYFxpI1mJY4zyyemn0tyCScoGFybCLYk obT1tgOxBEVheDSzB8Pn zO0xCCAnUA2pmvnph2oaVUC5IBhkUPNiVWV1TvKwPBOzu7Lxbjr0CiCys0DxkHWeUJhzJ26ra003DKQr xlPwM9iasLHxlyzekANb pobxCNxyruU1SMKmXDYdVDasIVEwQDRzEmGmsOQuKeVqPkVhlFhplGgnQDckNmSiLTQvDPccC1bbQjDk TeShFXUJoTZjox6zpQuf JErcpPSukAYpqGX2lR1uWLOefqGtfm3bGVDvsZDBzKV5QKgqesHlC8gtljdzPOP9FRXxMBI1H2peSLKW dmUsIENsZXZlbGFuZCBP TYZ6GAC0DWCnFXXVEAOwQZH2XJF0PCOpOSEgpFIyMGLacyfcDWNhXHLvPCihGVSmQTEpIuZaeYsncT1k WyGhSnXbYJjwMH8wYPNp E6tjtEYyIQUvHYDgN3bmDhNcjI6ecMrvQEvdHvYcQeZzDWgzwXOenWSCWTKzoxJ8w3W0PRcwlNJmvokz MVxmczIwXGxhbmcxMDMz IBryN3nwNgPtOLZftGunQIkib6GbCSBmOOEoFiStOUpcASW2w0T2HRbrnIPdjgTWJnRHVS5qpBIeebux PU7OIjosjBZgnzzjPPkw hyBxOYrsnkrmMROyWUtyX2psBjDxCQWglZfaJIxth1CzRNBrXZNdDiEegGJniF9=Egkdoikkb Clinic Work Phone: [facility] Work Phone: Telephone Encounteron [phone] Authentication Interface Message TextNormalThLaguo MetroScintella Solutions SystemTranscription Authentication Interface Message TextNormMoodyoe Advanced Magnet LabroScintella Solutions SystemTelephone Encounteron [phone] Authentication Interface Message TextNormal The MetroScintella Solutions SystemTranscription Authentication Interface Message TextNormal The MetroScintella Solutions SystemEstimated glomerular filtration rate (GFR) non- Americanon 99-43-5436COX/1.73 sq M.predicted among non-blacks MDRD (S/P/Bld) [Vol rate/Area]mL/min/{1.73_m2}>=60[facility] HospitalLaboratory - Chemistry and Chemistry - challengeon 33-04-7299Bttfwrb [Mass/Vol]9.3 mg/dL 8.5-10.1FLancaster Municipal HospitalChloride [Moles/Vol]109 mmol/L98-107 [facility] HospitalCO2 [Moles/Vol]27.6 mmol/L21.0-32.0[facility] HospitalCreatinine [Mass/Vol]0.65 mg/dL0.55-1.02T[facility] HospitalGFR/1.73 sq M.predicted MDRD (S/P/Bld) [Vol rate/Area] mL/min/{1.73_m2}>=60[facility] HospitalGlucose [Mass/Vol]69 mg/dL 74-106[facility] HospitalMagnesium [Mass/Vol]1.9 mg/dL1.8-2.4 [facility] HospitalPotassium [Moles/Vol]3.8 mmol/L3.5-5.1FTriHealthodium [Moles/Vol]145 mmol/P826-795YywmvwrfaTwin City HospitalUrea nitrogen [Mass/Vol]20.0 mg/dL7.0-18.0[facility] HospitalUrea nitrogen/Creatinine [Mass ratio]30.8 mg/mgPeoples Hospitalerum or plasma anion gap determinationon 99-98-1100Mxerf gap [Moles/Vol]12.2 mmol/LFLancaster Municipal HospitalTelephone Encounteron [phone] Authentication Interface Message TextSpoke with Lucie. Order resent to [facility] yesterday, 08/22, as previous order was sent to [facility].NormalThe MetroScintella Solutions SystemTranscription Authentication Interface Message TextNormBoston Hospital for WomenScintella Solutions SystemTranscription Authentication Interface Message TextNormKettering Health Behavioral Medical Center SystemTelephone Encounteron [phone] Authentication Interface Message TextCalled and spoke with [facility]. Upon further review, pt's DME order was sent to [facility]. Order resent to [facility].NormalMemorial Health System Marietta Memorial HospitalScintella Solutions System Lapping Machine Set Up Operator Authentication Interface Message TextNoAtrium Health Pineville Rehabilitation HospitalroHealth System Telephone Encounteron [phone] Authentication Interface Message TextMichelle from [facility] is calling about out mutual patient. They have an order for ostomy supplies for the patient however it has not been signed off on by a doctor. Please resubmit the order with the Drs approval on it. Thank you. [phone] MetroHealth SystemTelephone Encounteron 08-09-2023 Lapping Machine Set Up Operator Authentication Interface Message TextNormSouthview Medical Centere Neponsit Beach HospitalroHealth System Telephone Encounteron [phone] Authentication Interface Message TextNormalThe [facility] HospitalroHealth SystemTelephone Encounteron [phone] Authentication Interface Message TextNormalThe [facility] HospitalroHealth SystemTelephone Encounteron [phone] Authentication Interface Message TextNormal The [facility] SystemPatient Instructionson 85-68-5150Qhjzarivcjqic Authentication Interface Message TextPlease schedule CT headNormSouthview Medical Centere Neponsit Beach HospitalroHealth SystemProgress Noteson [phone] Authentication Interface Message TextC[facility] SystemTranscription Authentication Interface Message TextPatient identfied by name and date of Pharmacy updated Vital signs taken Patent in exam room ready for [facility] SystemStudent Noteon [phone] Authentication Interface Message TextCatskill [facility] Center SystemTranscription Authentication Interface Message TextCatskill Regional Medical Center SystemProgress Noteson [phone] Authentication Interface Message TextCatskill Regional Medical Center SystemTranscription Authentication Interface Message TextIdentification was verified by patient verbalizing her name and date of .NormalThe [facility] SystemBASIC METABOLIC PANELon 86-19-8189Xwbzf gap [Moles/Vol]9 mmol/WKto34-88Zdy [facility] SystemComment on above:Performed By: #### CH8 ####[facility] PATHOLOGY [id number] [place] [address], [address]Bnnsxug [Mass/Vol]8.0 mg/dLLow8.6-10.3The [facility] SystemComment on above:Performed By: #### CH8 ####[facility] PATHOLOGY [id number] [place], [address]Cjipwkph [Moles/Vol]108 mmol/PJerd33-131Ctq [facility] SystemComment on above:Performed By: #### CH8 ####S PATHOLOGY [id number] [place], [address]MC5 [Moles/Vol]29 mmol/TBsrxmv11-23Noa [facility] SystemComment on above:Performed By: #### CH8 ####S PATHOLOGY [id number] [place], [address]Xdjeqfkfax [Mass/Vol]0.40 mg/dLLow0.60-1.20The [facility] System Comment on above:Performed By: #### CH8 ####S PATHOLOGY [id number] [place] [address], [address]QMFRLUZZK GFR (CKD-EPI)115 mL/min/1.73sqmNormal>=60The [facility] SystemComment on above:Result Comment: 2020 CKD EPI Equation using Creatinine without RaceComment: Estimated glomerular filtration rate (eGFR) is calculated without a race coefficient. Values should be interpreted in the context of the patient's full clinical presentation.Reference:1. Cooper Khanna, Liv M, Karyn VILCHIS, et al.. A Unifying Approach for GFR Estimation: Recommendations of the NKF-ASN Task Force on Reassessing the Inclusion of Race in Diagnosing Kidney Disease. [place] Journal of Kidney Diseases 202;79(2):268-88.e1.2. N Engl J Med 1 Vol. 385 Issue 19 Pages 5720-1525Performed By: #### CH8 ####S PATHOLOGY [id number] [place], [address]Swognpv [Mass/Vol]94 mg/aRQtkhgr77-383 The [facility] HospitalroHealth SystemComment on above:Performed By: #### CH8 ####S PATHOLOGY [id number] [place], [address]Fhlyduhuk [Moles/Vol] 3.5 mmol/LNormal3.5-5.0The [facility] SystemComment on above:Performed By: #### CH8 ####S PATHOLOGY [id number] [place], [place], Sodium [Moles/Vol]142 mmol/PUtnzql572-273Rgh [facility]ro[facility] SystemComment on above: Performed By: #### CH8 ####S PATHOLOGY [id number] [place], [address]Xypr nitrogen [Mass/Vol]6 mg/dLLow7-25The [facility] SystemComment on above:Performed By: #### CH8 ####S PATHOLOGY [id number] [place], [address]Gbpiy metabolic 2000 panelon 53-48-6211Zdrrc gap [Moles/Vol]9 mmol/LLow10 - 20[facility] Calcium [Mass/Vol]8.0 mg/dLLow8.6 - 10.3 mg/dLTHE [facility] SYSTEMChloride [Moles/Vol]108 mmol/LHigh98 - 107 mmol/LTHE [facility] SYSTEMCO2 [Moles/Vol]29 mmol/L21 - 31 mmol/LTHE [facility] SYSTEMCreatinine [Mass/Vol]0.40 mg/dLLow0.60 - 1.20 mg/dLTHE [facility]RO[facility]ALTH SYSTEMGFR/1.73 sq M.predicted CKD-EPI (S/P/Bld) [Vol rate/Area]115- PINFTHE [facility] SYSTEMGlucose [Mass/Vol]94 mg/dL74 - 109 mg/dLTHE [facility] SYSTEMInterpretation and review of laboratory results AbnormalTHE [facility] SYSTEMPotassium [Moles/Vol]3.5 mmol/L3.5 - 5.0 mmol/LTHE [facility] SYSTEMSodium [Moles/Vol]142 mmol/L136 - 145 mmol/LTHE [facility] SYSTEMUrea nitrogen [Mass/Vol]6 mg/dLLow7 - 25 mg/dLTHE [facility] SYSTEMTHE [facility] SYSTEMCBC panel Auto (Bld)on 31-00-9995Hebkdvyeqzc distribution width (RBC) [Ratio]17.2 %High11.5 - 14.5 %[facility] SYSTEMHematocrit (Bld) [Volume fraction]25.1 %Low36.0 - 46.0 %[facility] SYSTEMHemoglobin (Bld) [Mass/Vol]8.3 g/dLLow12.0 - 15.0 g/dLTHE [facility]RO[facility] SYSTEMInterpretation and review of laboratory resultsAbnormalTHE [facility]RO[facility]ALTH SYSTEMMCH (RBC) [Entitic mass]29.4 pg26.0 - 34.0 pgTHE METROHEALTH SYSTEMMCHC (RBC) [Mass/Vol]33.1 g/dL 32.0 - 35.9 g/dLTHE METROHEALTH SYSTEMMCV (RBC) [Entitic vol]89 fL80 - 100 fLTHE METROHEALTH SYSTEMPlatelet mean volume (Bld) [Entitic vol]6.8 fLLow7.5 - 11.2 fL THE [facility] SYSTEMPlatelets (Bld) [#/Vol]499 10*3/jTZjcz856 - 400 K/uLTHE METROHEALTH SYSTEMRBC (Bld) [#/Vol]2.83 10*6/uLLowTHE METROHEALTH SYSTEMWBC (Bld) [#/Vol]5.7 10*3/uL4.5 - 11.5 K/uLTHE [facility]ITALROHEALTH SYSTEMTHE [facility]ITALROHEALTH SYSTEMCOMPLETE BLOOD COUNTon 57-80-7813Hivdtacxcrv distribution width (RBC) [Ratio]17.2 %High11.5-14.5The [facility] SystemComment on above:Performed By: #### CBC ####[facility] PATHOLOGY [id number] [place] [address], [address]Inlepyntcu (Bld) [Volume fraction]25.1 %Low36.0-46.0The [facility] SystemComment on above:Performed By: #### CBC ####[facility] PATHOLOGY [id number] [place] [address], [address]Mqeiejdond (Bld) [Mass/Vol]8.3 g/dLLow 12.0-15.0The [facility] SystemComment on above:Performed By: #### CBC ####[facility] PATHOLOGY PFZOSPIRKL[address] [place] [address], [address]VSU (RBC) [Entitic mass]29.4 fgJocslh33.0-34.0The [facility] SystemComment on above: Performed By: #### CBC ####[facility] PATHOLOGY [id number] [place] [address], [address]WKGU (RBC) [Mass/Vol]33.1 g/tFPpvsut56.0-35.9The [facility] SystemComment on above:Performed By: #### CBC ####[facility] PATHOLOGY AEUPBGROOI[address] [place] [address], [address]RWF (RBC) [Entitic vol] 89 qWBpdyut69-381Ydp [facility] SystemComment on above:Performed By: #### CBC ####[facility] PATHOLOGY [id number] [place] [address], Platelet mean volume (Bld) [Entitic vol]6.8 fLLow7.5-11.2The [facility] System Comment on above:Performed By: #### CBC ####[facility] PATHOLOGY [id number] [place] [address], [address]Mstklyyaj (Bld) [#/Vol]499 10*3/uLHigh 150-400The [facility]ro[facility] SystemComment on above:Performed By: #### CBC ####S PATHOLOGY [id number] [place], [address]EFT (Bld) [#/Vol]2.83 10*6/uLLow4.00-5.20The [facility] By [facility] HealthHealth SystemComment on above:Performed By: #### CBC ####S PATHOLOGY [id number] [place], [address]HOE (Bld) [#/Vol]5.7 10*3/uLNormal4.5-11.5The [facility] System Comment on above:Performed By: #### CBC ####[facility] PATHOLOGY [id number] [place] [address], [address]Qxeg Plan Noteon 07-13-2023 Lapping Machine Set Up Operator Authentication Interface Message TextNoMemorial Hospital System GLUCOSE, FINGERSTICK-IN OFFICEon 04-54-5788Afbpyym [Mass/Vol]117 mg/pIIekx34-786 The [facility] SystemComment on above:Result Comment: Notified ALISTAIR KEY MD Performed By: #### [id number] ####[facility] GLUCOSE DYOCFUF4418 [place], [place], [address]Gvnxcmg [Mass/Vol]117 mg/qQIouw59 - 110 mg/dLTHE [facility] SYSTEMInterpretation and review of laboratory resultsAbnoFisher-Titus Medical CenterTHE [facility]OSPITALROSOUTHWEST [facility] SYSTEMProgress Noteson 52-65-6305Shmpvconxhgua Authentication Interface Message TextNoMemorial Hospital SystemTranscription Authentication Interface Message TextNoMemorial Hospital SystemBASIC METABOLIC PANELon 99-22-3080Evvcg gap [Moles/Vol]12 mmol/ZSmwvgv33-15Vin [facility] SystemComment on above:Performed By: #### CH8 ####S PATHOLOGY XPMCDIVWZ[address] [place] [address], [address]Tgoadig [Mass/Vol]8.2 mg/dLLow8.6-10.3 The [facility] SystemComment on above:Performed By: #### CH8 ####S PATHOLOGY MBLVSCMXDY[address] [place] [address], [address]Xvqsuabf [Moles/Vol]106 mmol/IUlhhrz69-430Mhz [facility] SystemComment on above:Performed By: #### CH8 ####S PATHOLOGY UODQCKORPB0148 [place], [address]UX6 [Moles/Vol]27 mmol/APyuusl76-27Ykz [facility] SystemComment on above:Performed By: #### CH8 ####[facility] PATHOLOGY DLSUSPOSIV4528 [place], [address]Yactxjegqh [Mass/Vol]0.49 mg/dLLow0.60-1.20The [facility] Comment on above:Performed By: #### CH8 ####[facility] PATHOLOGY CNTRHZFUXK6745 [place], [address]GHAOFQQVR GFR (CKD-EPI)110 mL/min/1.73sqmNormal>=60The [facility] SystemComment on above:Result Comment: 2020 CKD EPI Equation using Creatinine without RaceComment: Estimated glomerular filtration rate (eGFR) is calculated without a race coefficient. Values should be interpreted in the context of the patient's full clinical presentation.Reference:1. Cooper C, Liv M, Karyn DC, et al.. A Unifying Approach for GFR Estimation: Recommendations of the NKF-ASN Task Force on Reassessing the Inclusion of Race in Diagnosing Kidney Disease. Thai Journal of Kidney Diseases 2021;79(2):268-88.e1.2. N Engl J Med 1 Vol. 385 Issue 19 Pages 7594-1344Performed By: #### CH8 ####S PATHOLOGY WATHOUFUBP9744 [place], [address]Objlmvh [Mass/Vol]66 mg/mCEvm75-953Ema [facility] SystemComment on above:Performed By: #### CH8 ####S PATHOLOGY DLTLCSRCKC5810 [place], [address]Ftrqplhot [Moles/Vol] 3.7 mmol/LNormal3.5-5.0The [facility] SystemComment on above:Performed By: #### CH8 ####S PATHOLOGY XYZBTXYSGX1834 [place], Sodium [Moles/Vol]141 mmol/SBqyfvz652-745Tos [facility] SystemComment on above: Performed By: #### CH8 ####S PATHOLOGY RPOCDTJCRC4601 [place], [address]Xqbp nitrogen [Mass/Vol]8 mg/dLNormal7-25The [facility] SystemComment on above:Performed By: #### CH8 ####S PATHOLOGY VFSWVQPIFC0580 [place], [address]Lppsx metabolic 2000 panelon 69-11-1106Mgjvg gap [Moles/Vol]12 mmol/L10 - 20[facility] Calcium [Mass/Vol]8.2 mg/dLLow8.6 - 10.3 mg/dLTHE [facility] SYSTEMChloride [Moles/Vol]106 mmol/L98 - 107 mmol/LTHE [facility] SYSTEMCO2 [Moles/Vol]27 mmol/L21 - 31 mmol/LTHE [facility] SYSTEMCreatinine [Mass/Vol]0.49 mg/dLLow0.60 - 1.20 mg/dLTHE [facility] SYSTEMGFR/1.73 sq M.predicted CKD-EPI (S/P/Bld) [Vol rate/Area]110- PINFTHE [facility] SYSTEMGlucose [Mass/Vol]66 mg/dLLow74 - 109 mg/dLTHE [facility] SYSTEMInterpretation and review of laboratory results AbnormalTHE [facility] SYSTEMPotassium [Moles/Vol]3.7 mmol/L3.5 - 5.0 mmol/LTHE [facility] SYSTEMSodium [Moles/Vol]141 mmol/L136 - 145 mmol/LTHE [facility] SYSTEMUrea nitrogen [Mass/Vol]8 mg/dL7 - 25 mg/dLTHE [facility] SYSTEMTHE [facility]ALTH SYSTEMCBC panel Auto (Bld)on 20-71-1847Wtdkzumbajg distribution width (RBC) [Ratio]18.0 %High11.5 - 14.5 %THE [facility] SYSTEMHematocrit (Bld) [Volume fraction]28.3 %Low36.0 - 46.0 %THE [facility] SYSTEMHemoglobin (Bld) [Mass/Vol]9.0 g/dLLow12.0 - 15.0 g/dLTHE [facility]OSPITALROSOUTHWEST [facility] SYSTEMInterpretation and review of laboratory resultsAbnormalTHE [facility]OSPITALROSOUTHWEST [facility] SYSTEMMCH (RBC) [Entitic mass]28.1 pg26.0 - 34.0 pgTHE [facility]ALLS HOSPITALROHEALTH SYSTEMMCHC (RBC) [Mass/Vol]31.7 g/dL Low32.0 - 35.9 g/dLTHE [facility]OSPITALROSOUTHWEST GENER[facility] SYSTEMMCV (RBC) [Entitic vol]89 fL80 - 100 fL THE [facility] SYSTEMPlatelet mean volume (Bld) [Entitic vol]7.0 fLLow7.5 - 11.2 fLTHE [facility]RO[facility]ALTH SYSTEMPlatelets (Bld) [#/Vol]595 10*3/oQLcpy219 - 400 K/uLTHE [facility]RO[facility]ALTH SYSTEMRBC (Bld) [#/Vol]3.19 10*6/uLLowTHE [facility] WBC (Bld) [#/Vol]7.2 10*3/uL4.5 - 11.5 K/uLTHE [facility] HOSPITALROHEALTH SYSTEMTHE [facility] HOSPITALROSOUTHWEST GENER[facility] SYSTEMCOMPLETE BLOOD COUNTon 31-84-4320Eirjrxgsxde distribution width (RBC) [Ratio]18.0 %High11.5-14.5The [facility] SystemComment on above:Performed By: #### CBC ####[facility] PATHOLOGY GXEYDXCMKY[address] [place] [address], [address]Uzclkukpnd (Bld) [Volume fraction]28.3 %Low36.0-46.0The [facility] SystemComment on above:Performed By: #### CBC ####[facility] PATHOLOGY JPSCFNNHWI8[address] [place] [address], [address]Kjeoswhwxc (Bld) [Mass/Vol]9.0 g/dLLow 12.0-15.0The [facility] SystemComment on above:Performed By: #### CBC ####S PATHOLOGY FCCOSICKPD[address] [place] [address], [address]XCW (RBC) [Entitic mass]28.1 jmKhqxwq18.0-34.0The [facility] SystemComment on above: Performed By: #### CBC ####[facility] PATHOLOGY EPHZKCMSYB[address] [place] [address], [address]GFBL (RBC) [Mass/Vol]31.7 g/dLLow32.0-35.9The [facility]ro[facility] SystemComment on above:Performed By: #### CBC ####[facility] PATHOLOGY RJHLDWUNHK0299 [place], [address]OCB (RBC) [Entitic vol] 89 fZDfyrci96-205Gld [facility]ro[facility] SystemComment on above:Performed By: #### CBC ####[facility] PATHOLOGY LIJGKATYGG[address] [place] [address], Platelet mean volume (Bld) [Entitic vol]7.0 fLLow7.5-11.2The [facility] Comment on above:Performed By: #### CBC ####[facility] PATHOLOGY WUYEGKMSHL[address] [place] [address], [address]Wdigkzbkl (Bld) [#/Vol]595 10*3/uLHigh 150-400The [facility] SystemComment on above:Performed By: #### CBC ####[facility] PATHOLOGY ZEJKXQCCHQ[address] [place] [address], [address]NQN (Bld) [#/Vol]3.19 10*6/uLLow4.00-5.20The [facility] SystemComment on above:Performed By: #### CBC ####[facility] PATHOLOGY ZKRKKCTSHO09[address] [place] [address], [address]QIQ (Bld) [#/Vol]7.2 10*3/uLNormal4.5-11.5The [facility]roMet[facility] System Comment on above:Performed By: #### CBC ####[facility] PATHOLOGY JEXHGLLRIG[address] [place] [address], [address]Zcaq Plan Noteon 07-12-2023 Lapping Machine Set Up Operator Authentication Interface Message TextNormalThe [facility]ro[facility] System Lapping Machine Set Up Operator Authentication Interface Message TextNormalThe [facility] Consultson 21-23-8201Dulvfxhogegii Authentication Interface Message TextNormal The [facility]roHealth SystemTranscription Authentication Interface Message TextNormal The [facility] SystemGLUCOSE, FINGERSTICK-IN OFFICEon 51-73-3725Vuuchbm [Mass/Vol]82 mg/aGGzktul24-782Kul [facility] HospitalroHealth SystemComment on above:Result Comment: Follow ProtocolPerformed By: #### [id number] ####NURSING GLUCOSE HKCTHRS7057 [place], [place], [address]Hyvfwtq [Mass/Vol]82 mg/dL68 - 110 mg/dL THE [facility]ITALROHEALTH SYSTEMInterpretation and review of laboratory resultsNormMiraVista Behavioral Health CenterHEALTH SYSTEMTHE [facility]ALTH SYSTEMGlucose [Mass/Vol]139 mg/pAHcsa51-045Cux [facility] SystemComment on above:Performed By: #### [id number] ####NURSING GLUCOSE BRDKUTM2904 [place], [place], [address]Wzbpcqt [Mass/Vol]82 mg/dL Lvfgkv55-668Ply [facility] SystemComment on above:Result Comment: Notified ALISTAIR KEY MDPerformed By: #### [id number] ####NURSING GLUCOSE JHWINEW6343 [place], [place], [address]Umhivet [Mass/Vol]139 mg/xKKvom71 - 110 mg/dLTHE [facility]OSPITALROHEALTH SYSTEMInterpretation and review of laboratory resultsAbnormMansfield Hospital SYSTEMTHE [facility] SYSTEMGlucose [Mass/Vol]82 mg/dL68 - 110 mg/dL THE [facility] SYSTEMInterpretation and review of laboratory resultsNormMansfield Hospital SYSTEMTHE [facility]ALTH SYSTEMGlucose [Mass/Vol]109 mg/ePExydln11-294 The [facility] SystemComment on above:Performed By: #### [id number] ####NURSING GLUCOSE ZBVZSLA6918 [place], [place], [address]Nnktfaqd Noteson 76-66-0792Vxnesohyoasxe Authentication Interface Message TextNormKettering Health [facility] SystemTranscription Authentication Interface Message TextNoMemorial Hospital SystemTranscription Authentication Interface Message TextNoMemorial Hospital SystemBASIC METABOLIC PANELon 51-04-2609Utkvu gap [Moles/Vol]12 mmol/UZrsker22-77Mto [facility] SystemComment on above:Performed By: #### CH8 ####[facility] PATHOLOGY OXZMCUFEAN6725 [place], [address] Calcium [Mass/Vol]8.5 mg/dLLow8.6-10.3The [facility]roHealth SystemComment on above: Performed By: #### CH8 ####[facility] PATHOLOGY OTIMFQYPYT9448 [place], [address]Pfewmesd [Moles/Vol]108 mmol/RHmjy87-028Fkv [facility] SystemComment on above:Performed By: #### CH8 ####[facility] PATHOLOGY HTPEMKNJWB9789 [place], [address]CR9 [Moles/Vol]26 mmol/BHvsadx35-76Bjd [facility] SystemComment on above:Performed By: #### CH8 ####[facility] PATHOLOGY TBOHUFSGLK7185 [place], Creatinine [Mass/Vol]0.43 mg/dLLow0.60-1.20The [facility] SystemComment on above:Performed By: #### CH8 ####[facility] PATHOLOGY ZFYGEMWPGG1688 [place], [address]VPLPPARXC GFR (CKD-EPI)113 mL/min/1.73sqmNormal >=60The [facility] SystemComment on above:Result Comment: 2020 CKD EPI Equation using Creatinine without RaceComment: Estimated glomerular filtration rate (eGFR) is calculated without a race coefficient. Values should be interpreted in the context of the patient's full clinical presentation.Reference:1. Cooper C, Liv M, Karyn VILCHIS, et al.. A Unifying Approach for GFR Estimation: Recommendations of the NKF-ASN Task Force on Reassessing the Inclusion of Race in Diagnosing Kidney Disease. Thai Journal of Kidney Diseases 2021;79(2):26 8-88.e1.2. N Engl J Med 2020 Vol. 385 Issue 19 Pages 4659-4451Performed By: #### CH8 ####S PATHOLOGY WUKQGFRUQT2005 [place], Glucose [Mass/Vol]60 mg/kPHvh94-304Iuq [facility] SystemComment on above: Performed By: #### CH8 ####[facility] PATHOLOGY ELQPGZIHIZ9798 [place], [address]Gjehnbtnk [Moles/Vol]3.8 mmol/LNormal3.5-5.0The [facility] SystemComment on above:Performed By: #### CH8 ####S PATHOLOGY MRMUFHFSNS6852 [place], [address]Glavzt [Moles/Vol]142 mmol/RReybab939-824Mxv [facility] HospitalroHealth SystemComment on above:Performed By: #### CH8 ####[facility] PATHOLOGY KYMZTQKKXK0330 [place], [address]Cwjx nitrogen [Mass/Vol]9 mg/dLNormal7-25The [facility] HospitalroScintella Solutions SystemComment on above: Performed By: #### CH8 ####[facility] PATHOLOGY MSOKSWKPUP9777 [place], [address]Kvsvw metabolic 2000 panelon 87-61-0735Bfkqq gap [Moles/Vol]12 mmol/L10 - 20[facility] Work Phone: Calcium [Mass/Vol]8.5 mg/dLLow8.6 - 10.3 mg/dLTHE [facility] Work Phone: Chloride [Moles/Vol]108 mmol/LHigh98 - 107 mmol/LTHE salgomedROHEALTH SYSTEM Work Phone: CO2 [Moles/Vol]26 mmol/L21 - 31 mmol/LTHE salgomedROMojeek SYSTEM Work Phone: Creatinine [Mass/Vol]0.43 mg/dLLow0.60 - 1.20 mg/dLTHE [facility] Work Phone: GFR/1.73 sq M.predicted CKD-EPI (S/P/Bld) [Vol rate/Area]113- PINFTHE salgomedROHEALTH SYSTEM Work Phone: Glucose [Mass/Vol]60 mg/dLLow74 - 109 mg/dLTHE salgomedROMojeek SYSTEM Work Phone: Interpretation and review of laboratory results AbnormalTHE salgomedROHEALTH SYSTEM Work Phone: Potassium [Moles/Vol]3.8 mmol/L3.5 - 5.0 mmol/LTHE salgomedROMojeek SYSTEM Work Phone: Sodium [Moles/Vol]142 mmol/L136 - 145 mmol/LTHE [facility] Work Phone: Urea nitrogen [Mass/Vol]9 mg/dL7 - 25 mg/dLTHE METROMojeek SYSTEM Work Phone: THE [facility]ROM[facility] SYSTEM Work Phone: CBC panel Auto (Bld)on 09-48-0234Kxazrwqhitt distribution width (RBC) [Ratio]18.0 %High11.5 - 14.5 %[facility] Hematocrit (Bld) [Volume fraction]24.7 %Low36.0 - 46.0 %[facility] Hemoglobin (Bld) [Mass/Vol]7.9 g/dLLow12.0 - 15.0 g/dLTHE METROMojeek SYSTEM Interpretation and review of laboratory resultsAbnormalTHE [facility]ROHEALTH SYSTEMMCH (RBC) [Entitic mass]28.4 pg26.0 - 34.0 pgTHE METROHEALTH SYSTEMMCHC (RBC) [Mass/Vol]32.1 g/dL32.0 - 35.9 g/dLTHE METROHEALTH SYSTEMMCV (RBC) [Entitic vol] 89 fL80 - 100 fLTHE [facility]RO[facility]ALTH SYSTEMPlatelet mean volume (Bld) [Entitic vol] 6.8 fLLow7.5 - 11.2 fLTHE [facility]ALTH SYSTEMPlatelets (Bld) [#/Vol]648 10*3/uL Blaf928 - 400 K/uLTHE METROMojeek SYSTEMRBC (Bld) [#/Vol]2.79 10*6/uLLowTHE METROHEALTH SYSTEMWBC (Bld) [#/Vol]7.0 10*3/uL4.5 - 11.5 K/uLTHE [facility] SYSTEMTHE [facility]ALTH SYSTEMCOMPLETE BLOOD COUNTon 43-25-8353Ygqqswjxewa distribution width (RBC) [Ratio]18.0 %High11.5-14.5The MetroScintella Solutions SystemComment on above:Performed By: #### CBC ####[facility] PATHOLOGY NOAWFSLSST94[address] [place] [address], [address]Ayhzagyulq (Bld) [Volume fraction]24.7 %Low 36.0-46.0The [facility] HospitalroHealth SystemComment on above:Performed By: #### CBC ####[facility] PATHOLOGY SSKPZPISOL[address] [place] [address], [address]Mewzfuiebx (Bld) [Mass/Vol]7.9 g/dLLow12.0-15.0The [facility] HospitalroHealth SystemComment on above: Performed By: #### CBC ####[facility] PATHOLOGY MTSYISEHJA[address] [place] [address], [address]YWN (RBC) [Entitic mass]28.4 nuShnyqp02.0-34.0The [facility] SystemComment on above:Performed By: #### CBC ####[facility] PATHOLOGY QSJZRDQPXA[address] [place] [address], [address]SIOW (RBC) [Mass/Vol] 32.1 g/zKYisgeg90.0-35.9The [facility] SystemComment on above:Performed By: #### CBC ####[facility] PATHOLOGY CMKSZCVLKI5[address] [place] [address], [address]DBI (RBC) [Entitic vol]89 lETobcea19-791Hxw [facility] By [facility] SystemComment on above:Performed By: #### CBC ####[facility] PATHOLOGY HYYEDDTJYK07[address] [place] [address], [address]Emrookdh mean volume (Bld) [Entitic vol]6.8 fLLow 7.5-11.2The [facility] By [facility] SystemComment on above:Performed By: #### CBC ####[facility] PATHOLOGY GJGVYSFFUI[address] [place] [address], [address]Abswnacxg (Bld) [#/Vol]648 10*3/gEYaca328-766Bft [facility] SystemComment on above: Performed By: #### CBC ####[facility] PATHOLOGY LATHSPDVGJ6[address] [place] [address], [address]JSM (Bld) [#/Vol]2.79 10*6/uLLow4.00-5.20The [facility] SystemComment on above:Performed By: #### CBC ####[facility] PATHOLOGY PNISZFAGZJ4341 [place], [address]TNE (Bld) [#/Vol]7.0 10*3/uLNormal4.5-11.5The [facility] HospitalroHealth SystemComment on above:Performed By: #### CBC ####S PATHOLOGY CITLRQWSDJ9256 [place], Consultson 80-80-4002Kkwsgmswklnlp Authentication Interface Message TextNormal The [facility] HospitalroHealth SystemTranscription Authentication Interface Message TextNormal The [facility] HospitalroHealth SystemGLUCOSE, FINGERSTICK-IN OFFICEon 32-89-5064Xpnsvuh [Mass/Vol]77 mg/wYYgmrfw68-598Dsa [facility] SystemComment on above:Performed By: #### 56541 ####NURSING GLUCOSE NTZHFZY[address] [place] [address], [address]Fcrceti [Mass/Vol]66 mg/iGDqt28-396Zpc [facility] HospitalroHealth SystemComment on above: Performed By: #### 75919 ####NURSING GLUCOSE IAXMXWH7466 [place], [place], [address]Bivsvog [Mass/Vol]58 mg/tFKce69-555Tga [facility] HospitalroHealth SystemComment on above:Performed By: #### 08579 ####NURSING GLUCOSE IVQUTZE3476 [place], [place], [address]Rwcudvi [Mass/Vol]109 mg/dL68 - 110 mg/dL THE [facility]ITALROHEALTH SYSTEMInterpretation and review of laboratory resultsNormalTHE [facility] HOSPITALROHEALTH SYSTEMTHE [facility] SYSTEMGlucose [Mass/Vol]77 mg/dL68 - 110 mg/dL THE [facility] SYSTEMInterpretation and review of laboratory resultsNormCorey HospitalE [facility]ITALROHEALTH SYSTEMTHE [facility] SYSTEMGlucose [Mass/Vol]66 mg/dLLow68 - 110 mg/dLTHE [facility] SYSTEMInterpretation and review of laboratory results AbnormalTHE [facility]ALTH SYSTEMTHE [facility]ALTH SYSTEMGlucose [Mass/Vol]58 mg/dL Low68 - 110 mg/dLTHE [facility] SYSTEMInterpretation and review of laboratory resultsAbnormHealthSouth Medical CenterROHEALTH SYSTEMTHE [facility]ALTH SYSTEMGlucose [Mass/Vol]77 mg/xFCweqgx04-485Zyc [facility] SystemComment on above:Performed By: #### 49230 ####NURSING GLUCOSE HNMKSAI3099 [place], [place], [address]Karqyix [Mass/Vol]77 mg/dL68 - 110 mg/dLTHE [facility]ALTH SYSTEMGlucose [Mass/Vol]93 mg/dL Fefnku08-114YCE [facility]PITALROHEALTH SYSTEMComment on above:Performed By: #### 72028 ####NURSING GLUCOSE JNLJRXH1567 [place], [place], [address]Pbpmpbx [Mass/Vol]121 mg/uYBdcn63-918Lwo [facility] HospitalroHealth SystemComment on above:Result Comment: Notified ALISTAIR KEY MDPerformed By: #### 34096 ####NURSING GLUCOSE HSXYJVQ3314 [place], [place], [address]Urzwxph [Mass/Vol]121 mg/dLHigh 68 - 110 mg/dLTHE [facility] SYSTEMInterpretation and review of laboratory resultsAbnoFrye Regional Medical Center Alexander CampusROHEALTH SYSTEMTHE [facility]OSPITALROHEALTH SYSTEMGlucose [Mass/Vol]126 mg/nGWfge52-410Fgy [facility] HospitalroHealth SystemComment on above:Performed By: #### 45741 ####NURSING GLUCOSE ELVZEFV6888 [place], [place], [address]Scrvmvk [Mass/Vol]61 mg/bRCrs86-579Rms [facility] HospitalroHealth SystemComment on above:Performed By: #### 35628 ####NURSING GLUCOSE ZIVKNMP5375 [place], [address] Glucose [Mass/Vol]126 mg/nONjvo71 - 110 mg/dLTHE [facility] Interpretation and review of laboratory resultsAbnormHealthSouth Medical CenterROSOUTHWEST GENER[facility]ENTER SYSTEMTHE [facility]ALTH SYSTEMGlucose [Mass/Vol]61 mg/dLLow68 - 110 mg/dLTHE [facility] SYSTEMInterpretation and review of laboratory resultsAbnoFrye Regional Medical Center Alexander CampusROSOUTHWEST GENERAL HEALTH [facility]ENTER SYSTEMTHE [facility]OSPITALROHEALTH SYSTEMLACTIC ACIDon 53-05-7784DU LACT0.8 mmol/LNormal 0.5-1.6The [facility] SystemComment on above:Performed By: #### LACT ####[facility] PATHOLOGY PGBQSSZQML[address] [place] [address], [address] Interpretation and review of laboratory resultsNormalTHE [facility] Work Phone: Lactate [Moles/Vol]0.8 mmol/L0.5 - 1.6 mmol/LTHE [facility] Work Phone: THE METROM[facility] SYSTEM Work Phone: No Panel Informationon 91-88-9199Cjwtbrvvzgjckc and review of laboratory resultsNoFrye Regional Medical Center Alexander CampusROHEALTH SYSTEMTHE [facility]OSPITALRO[facility]ALTH SYSTEM Progress Noteson 13-95-9474Uowshsehlgdms Authentication Interface Message Text NormalThe [facility] SystemTranscription Authentication Interface Message Text NormalThe [facility] SystemTranscription Authentication Interface Message Text NormalThe [facility] SystemAnesthesia Postprocedure Evaluationon 07-10-2023 Lapping Machine Set Up Operator Authentication Interface Message TextNormCentra Virginia Baptist HospitalroHealth System Anesthesia Transfer Of Careon 94-09-8334Avgikfnerzcfh Authentication Interface Message TextNoAtrium Health Pineville Rehabilitation HospitalroHealth SystemTranscription Authentication Interface Message TextNoAtrium Health Pineville Rehabilitation HospitalroHealth SystemB-HYDROXYBUTYRATEon 07-10-2023 B-HYDROXYBUTYRATE1.13 mmol/LHigh0.02-0.27The [facility] SystemComment on above: Order Comment: Reference Range: Normal: 0.02 - 0.27 mmol/L Ketosis: > 0.30 mmol/L Possible Ketoacidosis: > 0.50 mmol/LNote updated reference ranges. Performed By: ###RADHIKA CARROLL ####[facility] PATHOLOGY WYLGJZBUMY6653 [place], [address]Zsbq hydroxybutyrate [Moles/Vol]1.13 mmol/LHigh 0.02 - 0.27 mmol/LTHE [facility] HOSPITALROSOUTHWEST GENER[facility] SYSTEMInterpretation and review of laboratory resultsAbnormMansfield Hospital SYSTEMTHE [facility] HOSPITALROSOUTHWEST GENERAL [facility]ALTH [facility]ENTER SYSTEMTHE [facility] HOSPITALROSOUTHWEST GENERAL [facility]ALTH [facility]ENTER SYSTEMBASIC METABOLIC PANELon 00-43-3913Vfjug gap [Moles/Vol]13 mmol/LNormal 10-20The [facility] SystemComment on above:Performed By: #### RADHIKA FALK ####[facility] PATHOLOGY VZMUYVORSI7186 [place], [address]Ybefwvv [Mass/Vol]8.4 mg/dLLow8.6-10.3The [facility] SystemComment on above:Performed By: #### RADHIKA FALK ####S PATHOLOGY GDKGSCMHIM5728 [place], [address]Mfxgrwjz [Moles/Vol]108 mmol/JHjjc05-453Qqj [facility] System Comment on above:Performed By: #### RADHIKA FALK ####S PATHOLOGY OWKBOSQDJA9634 [place], [address]TH9 [Moles/Vol]24 mmol/OXrtchv90-73Xbs [facility] SystemComment on above:Performed By: ###Josafat FALK CH8 ####S PATHOLOGY GWCKYOTNKM4547 [place], [address]Btajwxapaj [Mass/Vol]0.47 mg/dLLow0.60-1.20The [facility] SystemComment on above:Performed By: #### HUBER FALK8 ####[facility] PATHOLOGY ZVOIGDDKGD0770 [place], [address]DWHPXOQTG GFR (CKD-EPI)111 mL/min/1.73sqmNormal>=60The [facility] SystemComment on above:Result Comment: 2020 CKD EPI Equation using Creatinine without RaceComment: Estimated glomerular filtration rate (eGFR) is calculated without a race coefficient. Values should be interpreted in the context of the patient's full clinical presentation.Reference:1. Cooper C, Liv M, Karyn VILCHIS, et al.. A Unifying Approach for GFR Estimation: Recommendations of the NKF-ASN Task Force on Reassessing the Inclusion of Race in Diagnosing Kidney Disease. [place] Journal of Kidney Diseases 2021;79(2):268-88.e1.2. N Engl J Med 1 Vol. 385 Issue 19 Pages 7732-1717Performed By: #### RADHIKA FALK ####S PATHOLOGY ZNGPFLARPB2022 [place], [address]Tjnylwk [Mass/Vol]221 mg/lVBwhv21-132Gua [facility] SystemComment on above:Performed By: ###RADHIKA CARROLL ####S PATHOLOGY CPONXOFSZL5249 [place], Potassium [Moles/Vol]4.2 mmol/LNormal3.5-5.0The [facility] HospitalroHealth SystemComment on above:Performed By: #### HUBER FALK8 ####S PATHOLOGY ZUTRDYIONE[address] [place] [address], [address]Nqqksv [Moles/Vol]141 mmol/ADkwoie465-111Gtq [facility] HospitalroHealth SystemComment on above:Performed By: #### HUBER FALK8 ####S PATHOLOGY LAPSLR[address] [place] [address], [address]Lulw nitrogen [Mass/Vol]13 mg/dLNormal7-25The [facility], Operated By [facility] Health[facility] SystemComment on above:Performed By: #### HUBER FALK8 ####S PATHOLOGY XLNJWJEOEF[address] [place] [address], [address]Hneeb gap [Moles/Vol]13 mmol/HPfoaye29-43Fzh [facility], Oper[facility] By [facility] HealthHealth SystemComment on above:Performed By: #### CH8 ####S PATHOLOGY QBLNFZZAIZ[address] [place] [address], [address]Gmxwvxu [Mass/Vol]8.0 mg/dLLow8.6-10.3The [facility] HospitalroHealth SystemComment on above:Performed By: #### CH8 ####S PATHOLOGY OGPUXWILRK[address] [place] [address], [address]Nubpwotl [Moles/Vol]106 mmol/VZkmmtn10-331Mig [facility]roHealth SystemComment on above:Performed By: #### CH8 ####S PATHOLOGY TNLBBEEYJJ[address] [place] [address], [address]XZ6 [Moles/Vol]23 mmol/SXisabn21-69Gno [facility] HospitalroHealth SystemComment on above:Performed By: #### CH8 ####S PATHOLOGY RWNMIYPAMV[address] [place] [address], [address]Rlzwspkscv [Mass/Vol]0.45 mg/dLLow0.60-1.20The [facility] Comment on above:Performed By: #### CH8 ####S PATHOLOGY MNWNFHIXAQ[address] [place] [address], [address]SAKXTXWKN GFR (CKD-EPI)112 mL/min/1.73sqmNormal>=60The [facility] HospitalroHealth SystemComment on above:Result Comment: 2020 CKD EPI Equation using Creatinine without RaceComment: Estimated glomerular filtration rate (eGFR) is calculated without a race coefficient. Values should be interpreted in the context of the patient's full clinical presentation.Reference:1. Cooper Khanna, Liv M, Karyn DC, et al.. A Unifying Approach for GFR Estimation: Recommendations of the NKF-ASN Task Force on Reassessing the Inclusion of Race in Diagnosing Kidney Disease. [place] Journal of Kidney Diseases 202;79(2):268-88.e1.2. N Engl J Med 2020 Vol. 385 Issue 19 Pages 1710-0509Performed By: #### CH8 ####[facility] PATHOLOGY MIBQACYSPX0913 [place], [address]Nioktyl [Mass/Vol]328 mg/jPBtpk91-396 The [facility] SystemComment on above:Performed By: #### CH8 ####[facility] PATHOLOGY QXDESVIHGE7749 [place], [address]Yxxsxqbid [Moles/Vol] 4.5 mmol/LNormal3.5-5.0The [facility] SystemComment on above:Performed By: #### CH8 ####[facility] PATHOLOGY PURLDDYCHX5125 [place], [place], Sodium [Moles/Vol]137 mmol/DKollyr728-562Flk [facility] SystemComment on above: Performed By: #### CH8 ####S PATHOLOGY PZXEVRTSDM3902 [place], [address]Aprg nitrogen [Mass/Vol]11 mg/dLNormal7-25The [facility] SystemComment on above:Performed By: #### CH8 ####S PATHOLOGY WHCLOOMPYX4139 [place], [address]AECRB GAS, VENOUSon [id number] ABEV-0.6 mmol/LNormal-2.0-3.0The [facility] SystemComment on above:Performed By: #### CR BGV ####[facility] PATHOLOGY TILGCVFMHY4018 [place], [address]HJ ZSJ5Z25 mmol/LHlkhds04-84Woe [facility] System Comment on above:Performed By: #### CR BGV ####S PATHOLOGY RDTELDISYM3426 [place], [address]KF PHV7.733Xqjior9.320-7.430The [facility] HospitalroHealth SystemComment on above:Performed By: #### CR BGV ####[facility] PATHOLOGY BOHFDBOZDQ8565 [place], [address]OH DXRB482.5 mm Hg Pknaen78.0-51.0The [facility], Operated By [facility] Health[facility] SystemComment on above:Performed By: #### CR BGV ####[facility] PATHOLOGY IGERIGYGNZ[address] [place] [address], [address]RE SSV509 mm AbUwyeap08-87Yjq [facility] SystemComment on above:Performed By: #### CR BGV ####[facility] PATHOLOGY BZRBQXTUZD[address] [place] [address], [address]PRS2 (CATEGORY)Room AirCatskill Regional Medical Center SystemComment on above: Performed By: #### CR BGV ####[facility] PATHOLOGY UQPMSFFFBI[address] [place] [address], [address]GRHRKom [facility] Comment on above:Result Comment: room airPerformed By: #### CR BGV ####S PATHOLOGY WOPCBCGJQP4404[address] [place] [address], [address]Whtwlk saturation in Blood76.6 %Soscjw01.0-80.0The [facility] HospitalroHealth SystemComment on above: Performed By: #### CR BGV ####S PATHOLOGY KSDVVFDDUV[address]32[address] [place] [address], [address]Suve excess Calc (BldV) [Moles/Vol]-0.6000 mmol/L- 2.0 - 3.0 mmol/LTHE [facility] Work Phone: CO2 (BldV) [Partial pressure]42.5 mm[Hg][facility] Work Phone: FIO2Room AirTHE [facility] Work Phone: HCO3 (Bld) [Moles/Vol]24 mmol/L21 - 28 mmol/LTHE [facility] Work Phone: Oxygen (BldV) [Partial pressure]44 mm[Hg][facility] Work Phone: Oxygen gas flow Oxygen delivery systemNot IndicatedTHE [facility] Work Phone: Oxygen saturation in Venous blood76.6 %70.0 - 80.0 % [facility] Work Phone: pH (BldV)7.372 [pH]7.320 - 7.430THE [facility] Work Phone: THE salgomedROMojeek SYSTEM Work Phone: CR ABEV-8.1 mmol/LLow-2.0-3.0The [facility] [facility] Comment on above:Performed By: #### CR BGV, CR GLU, LACT, CR ICA, CR LYTES, CR COOX ####[facility] PATHOLOGY CUQBEKAPJY1889KpklqCdqogw[address] [place] [address], CR XIO5V18 mmol/SJbz48-07Joj [facility] HospitalroScintella Solutions SystemComment on above:Performed By: #### CR BGV, CR GLU, LACT, CR ICA, CR LYTES, CR COOX ####[facility] PATHOLOGY GWFQAROGHL4651LpxeeBtxpdn[address] [place] [address], [address]HE PHV7.248Low 7.320-7.430The [facility] HospitalroScintella Solutions SystemComment on above:Performed By: #### CR BGV, CR GLU, LACT, CR ICA, CR LYTES, CR COOX ####[facility] PATHOLOGY SMRGHLKAEA3527YamltKoydnh[address] [place] [address], [address]NE NQZO182.9 mm IcQiosdq62.0-51.0The [facility] SystemComment on above:Performed By: #### CR BGV, CR GLU, LACT, CR ICA, CR LYTES, CR COOX ####[facility] PATHOLOGY EXCXJHYMTX8990TadbhQwfpag[address] [place] [address], [address]WM OFM168 mm NoKznm01-55Nfu [facility]roHealth SystemComment on above: Performed By: #### CR BGV, CR GLU, LACT, CR ICA, CR LYTES, CR COOX ####[facility] PATHOLOGY EDFCMTPZUL1349DsoknUxejbu[address] [place] [address], [address]Loygpr saturation in Blood87.2 %High70.0-80.0The [facility] HospitalroHealth SystemComment on above: Performed By: #### CR BGV, CR GLU, LACT, CR ICA, CR LYTES, CR COOX ####[facility] PATHOLOGY LDXCLMZZQS0607JaakvHtfjck[address] [place] [address], [address]RN ABEV-13.4 mmol/LLow-2.0-3.0The [facility]roHealth SystemComment on above:Performed By: #### CR GLU, CR LYTES, CR COOX, CR BGV, CR ICA, LACT ####[facility] PATHOLOGY RMNVFVRWSP67[address] [place] [address], [address]XN RRV7J29 mmol/JQgx22-87Mof [facility]roHealth SystemComment on above:Performed By: #### CR GLU, CR LYTES, CR COOX, CR BGV, CR ICA, LACT ####[facility] PATHOLOGY YQADBKRTKY7608TrtiaHsnvdg[address] [place] [address], [address]QI PHV7.435Bee9.320-7.430The [facility] Comment on above:Performed By: #### CR GLU, CR LYTES, CR COOX, CR BGV, CR ICA, LACT ####[facility] PATHOLOGY DUYTCMYUDR4167UvvhsLldemi[address] [place] [address], CR BAPU460.5 mm HgLow41.0-51.0The [facility], Operated By [facility] Health[facility] SystemComment on above:Performed By: #### CR GLU, CR LYTES, CR COOX, CR BGV, CR ICA, LACT ####[facility] PATHOLOGY LVVWYDNQKY9115SiiskJblzvf[address] [place] [address], [address]KI RAC284 mm BxNuvt69-60 The [facility]roHealth SystemComment on above:Performed By: #### CR GLU, CR LYTES, CR COOX, CR BGV, CR ICA, LACT ####[facility] PATHOLOGY NVOXSRNVNZ2924MieklPwggeo[address] [place] [address], [address]Gsxrkl saturation in Blood86.3 %High70.0-80.0The [facility] SystemComment on above:Performed By: #### CR GLU, CR LYTES, CR COOX, CR BGV, CR ICA, LACT ####[facility] PATHOLOGY BTDAQBSRZE2536UcmulDhkbrt[address] [place] [address], [address]Tpbd excess Calc (BldV) [Moles/Vol]-8.1000 mmol/L Low-2.0 - 3.0 mmol/LTHE [facility] Work Phone: CO2 (BldV) [Partial pressure]42.9 mm[Hg][facility] Work Phone: HCO3 (Bld) [Moles/Vol]18 mmol/LLow21 - 28 mmol/LTHE [facility] Work Phone: Oxygen (BldV) [Partial pressure]64 mm[Hg]HighTHE [facility] Work Phone: Oxygen saturation in Venous blood87.2 %High70.0 - 80.0 %[facility] Work Phone: pH (BldV)7.248 [pH]Low7.320 - 7.430THE [facility] Work Phone: BLOOD GAS, VENOUSOrdered By: Chip Wade on [phone] excess Calc (BldV) [Moles/Vol]-13.57419 mmol/LLow-2.0 - 3.0 mmol/LTHE [facility]RO[facility]ALTH SYSTEMCO2 (BldV) [Partial pressure]30.5 mm[Hg]LowTHE [facility]RO[facility]ALTH SYSTEMHCO3 (Bld) [Moles/Vol]13 mmol/LLow21 - 28 mmol/LTHE [facility] SYSTEMInterpretation and review of laboratory resultsAbnormalTHE [facility]ALTH SYSTEMOxygen (BldV) [Partial pressure]62 mm[Hg]HighTHE [facility]ALTH SYSTEMOxygen saturation in Venous blood86.3 %High70.0 - 80.0 %THE [facility] SYSTEMpH (BldV)7.238 [pH]Low7.320 - 7.430THE [facility] SYSTEMTHE [facility]ALTH SYSTEMBasic metabolic 2000 panelOrdered By: Mali Pompa on 07-10-2023 Anion gap [Moles/Vol]13 mmol/L10 - 20THE [facility] SYSTEMCalcium [Mass/Vol]8.4 mg/dLLow8.6 - 10.3 mg/dLTHE [facility] SYSTEMChloride [Moles/Vol]108 mmol/L High98 - 107 mmol/LTHE [facility]ALTH SYSTEMCO2 [Moles/Vol]24 mmol/L21 - 31 mmol/L THE [facility] SYSTEMCreatinine [Mass/Vol]0.47 mg/dLLow0.60 - 1.20 mg/dLTHE [facility]ALTH SYSTEMGFR/1.73 sq M.predicted CKD-EPI (S/P/Bld) [Vol rate/Area]111- PINFTHE [facility]ALTH SYSTEMGlucose [Mass/Vol]221 mg/aHBink55 - 109 mg/dLTHE [facility] SYSTEMInterpretation and review of laboratory resultsAbnormSelect Medical Specialty Hospital [facility] SYSTEMPotassium [Moles/Vol]4.2 mmol/L3.5 - 5.0 mmol/LTHE [facility] SYSTEMSodium [Moles/Vol]141 mmol/L136 - 145 mmol/LTHE [facility]ALTH SYSTEMUrea nitrogen [Mass/Vol]13 mg/dL7 - 25 mg/dLTHE [facility]ALTH SYSTEMTHE [facility]RO[facility]ALTH SYSTEMBasic metabolic 2000 panelon [id number] gap [Moles/Vol]13 mmol/L10 - 20THE [facility] SYSTEMCalcium [Mass/Vol]8.0 mg/dLLow8.6 - 10.3 mg/dLTHE [facility] SYSTEMChloride [Moles/Vol]106 mmol/L98 - 107 mmol/LTHE [facility] SYSTEMCO2 [Moles/Vol]23 mmol/L21 - 31 mmol/LTHE [facility] SYSTEMCreatinine [Mass/Vol]0.45 mg/dLLow0.60 - 1.20 mg/dLTHE [facility]ALTH SYSTEMGFR/1.73 sq M.predicted CKD-EPI (S/P/Bld) [Vol rate/Area]112- PINFTHE [facility] Glucose [Mass/Vol]328 mg/lMNwsz49 - 109 mg/dLTHE [facility] Interpretation and review of laboratory resultsAbnormSelect Medical Specialty Hospital [facility] Potassium [Moles/Vol]4.5 mmol/L3.5 - 5.0 mmol/LTHE [facility]ITALROHEALTH SYSTEMSodium [Moles/Vol]137 mmol/L136 - 145 mmol/LTHE [facility]OSPITALROHEALTH SYSTEMUrea nitrogen [Mass/Vol]11 mg/dL7 - 25 mg/dLTHE [facility] CALCIUM, IONIZEDon [id number] ICA1.24 mmol/LNormal1.15-1.33The [facility] SystemComment on above:Result Comment: This test was developed, and its performance characteristics determined by the Department of Pathology of [facility]. It has not been cleared or approved by the FDA. This test is used for clinical purposes only.Performed By: #### CR BGV, CR GLU, LACT, CR ICA, CR LYTES, CR COOX ####[facility] PATHOLOGY GFIEJJFEKU8077ZtzctItcosa[address] [place] [address], [address]DK ICA1.15 mmol/LNormal1.15-1.33The [facility] CenterComment on above:Result Comment: This test was developed, and its performance characteristics determined by the Department of Pathology of [facility]. It has not been cleared or approved by the FDA. This test is used for clinical purposes only.Performed By: #### CR GLU, CR LYTES, CR COOX, CR BGV, CR ICA, LACT ####[facility] PATHOLOGY ZVSQMSYDMB1627IvgmpGdkpfj[address] [place] [address], [address]Olkfazg.ionized (Bld) [Moles/Vol]1.24 mmol/L1.15 - 1.33 mmol/LTHE [facility]OSPITALMoje[facility] SYSTEM Work Phone: Interpretation and review of laboratory resultsNormal THE [facility]ITALW[facility] SYSTEM Work Phone: THE [employer] [facility] Work Phone: Calcium.ionized (Bld) [Moles/Vol]1.15 mmol/L1.15 - 1.33 mmol/LTHE [facility]OSPITALMojeek SYSTEM Work Phone: Interpretation and review of laboratory resultsNormal THE [employer] [facility] Work Phone: THE [employer] [facility] Work Phone: CBC panel Auto (Bld)on [id number] distribution width (RBC) [Ratio]17.7 %High11.5 - 14.5 %[facility] Hematocrit (Bld) [Volume fraction]24.2 %Low36.0 - 46.0 %[facility] Hemoglobin (Bld) [Mass/Vol]7.8 g/dLLow12.0 - 15.0 g/dLTHE [facility]OSPITALROSOU[facility] SYSTEM Interpretation and review of laboratory resultsAbnormalTHE [facility]ALLS HOSPITALROHEALTH SYSTEMMCH (RBC) [Entitic mass]28.7 pg26.0 - 34.0 pgTHE METROHEALTH SYSTEMMCHC (RBC) [Mass/Vol]32.3 g/dL32.0 - 35.9 g/dLTHE METROHEALTH SYSTEMMCV (RBC) [Entitic vol] 89 fL80 - 100 fLTHE METROHEALTH SYSTEMPlatelet mean volume (Bld) [Entitic vol] 7.3 fLLow7.5 - 11.2 fLTHE METROHEALTH SYSTEMPlatelets (Bld) [#/Vol]633 10*3/uL Qspr358 - 400 K/uLTHE METROHEALTH SYSTEMRBC (Bld) [#/Vol]2.72 10*6/uLLowTHE METROHEALTH SYSTEMWBC (Bld) [#/Vol]7.2 10*3/uL4.5 - 11.5 K/uLTHE [facility]RO[facility]ALTH SYSTEMTHE METROSOUTHWEST GENERAL [facility]ENTER SYSTEMCO-OXIMETERon 71-59-7059ZSIHYMBBABIVXNADZ7.0 %High 0.5-1.5The [facility]roHealth SystemComment on above:Performed By: #### CR BGV, CR GLU, LACT, CR ICA, CR LYTES, CR COOX ####[facility] PATHOLOGY YRKQVCEXFG0677UtigoMveeaf[address] [place] [address], [address]AN HBMET0.8 %Normal0.0-1.5The [facility] HospitalroMet[facility] System Comment on above:Performed By: #### CR BGV, CR GLU, LACT, CR ICA, CR LYTES, CR COOX ####[facility] PATHOLOGY AUVZUEJINB6963PijyqBkmlmp[address] [place] [address], Hematocrit (Bld) [Volume fraction]24.6 %Low38.0-46.0The [facility]ro[facility] System Comment on above:Performed By: #### CR BGV, CR GLU, LACT, CR ICA, CR LYTES, CR COOX ####[facility] PATHOLOGY TDUBZKCRKV7344NhilkBsjebj[address] [place] [address], Hemoglobin (Bld) [Mass/Vol]7.9 g/dLLow12.0-16.0The [facility] SystemComment on above:Performed By: #### CR BGV, CR GLU, LACT, CR ICA, CR LYTES, CR COOX ####[facility] PATHOLOGY PLZNSTIQSY6667NzguuEngsws[address] [place] [address], [address]UXQPCXIVOSNUP 84.8 %Low94.0-98.0The [facility] SystemComment on above:Performed By: #### CR BGV, CR GLU, LACT, CR ICA, CR LYTES, CR COOX ####[facility] PATHOLOGY ENXJRKBPUB5436[address] [place] [address], [address]OHYSRLBELRHOWBGQR7.4 %Normal0.5-1.5The [facility] SystemComment on above:Performed By: #### CR GLU, CR LYTES, CR COOX, CR BGV, CR ICA, LACT ####[facility] PATHOLOGY ZVHYQELMSV0039JiuuqPbnrvk[address] [place] [address], [address]ZG HBMET2.2 %High0.0-1.5The [facility] System Comment on above:Performed By: #### CR GLU, CR LYTES, CR COOX, CR BGV, CR ICA, LACT ####[facility] PATHOLOGY GNYTJKNMGO7303XjgcaQwwfla[address] [place] [address], Hematocrit (Bld) [Volume fraction]18.3 %Critically low38.0-46.0The [facility] SystemComment on above:Performed By: #### CR GLU, CR LYTES, CR COOX, CR BGV, CR ICA, LACT ####[facility] PATHOLOGY JTOSDDNULP5580DllskMopdxw[address] [place] [address], [address]Wvsczsxfbs (Bld) [Mass/Vol]g/dLCritically low12.0-16.0The [facility] SystemComment on above:Performed By: #### CR GLU, CR LYTES, CR COOX, CR BGV, CR ICA, LACT ####[facility] PATHOLOGY DJZLOMTDTW1066OdjxuXlqeot[address] [place] [address], [address]LKQYRLMOJQIBP35.2 %Low94.0-98.0The [employer] SystemComment on above: Performed By: #### CR GLU, CR LYTES, CR COOX, CR BGV, CR ICA, LACT ####S PATHOLOGY CEBYBQOETT1033MduzaKeayuk[address] [place] [address], Carboxyhemoglobin (BldA) [Mass fraction]2.0 %High0.5 - 1.5 %THE [employer] [facility] Work Phone: [phone] (BldA) [Volume fraction]24.6 %Low38.0 - 46.0 %THE [employer] [facility] Work Phone: [phone] (Bld) [Mass/Vol]7.9 g/dLLow12.0 - 16.0 g/dL THE [employer] Work Phone: [phone] (BldA) [Mass fraction]0.8 %0.0 - 1.5 % THE [employer] [facility] Work Phone: [phone] (BldA) [Mass fraction]84.8 %Low94.0 - 98.0 %THE [employer] [facility] Work Phone: [phone] (BldA) [Mass fraction]1.4 %0.5 - 1.5 %THE [employer] [facility] Work Phone: [phone] (BldA) [Volume fraction]18.3 %Critically low38.0 - 46.0 %THE [employer] [facility] Work Phone: [phone] (Bld) [Mass/Vol]g/dLCritically low12.0 - 16.0 g/dLTHE [employer] SYSTEM Work Phone: Interpretation and review of laboratory results AbnormalTHE [employer] Work Phone: Methemoglobin (BldA) [Mass fraction]2.2 %High0.0 - 1.5 %THE [employer] [facility] Work Phone: Oxyhemoglobin (BldA) [Mass fraction]83.2 %Low94.0 - 98.0 %THE [facility] Work Phone: THE [facility] HOSPITALROMo[facility] SYSTEM Work Phone: COMPLETE BLOOD COUNTon 98-00-5023Tqirynxymzc distribution width (RBC) [Ratio]17.7 %High11.5-14.5The [facility] HospitalroHealth SystemComment on above:Performed By: #### CBC ####[facility] PATHOLOGY YIJRYGUVEB[address] [place] [address], #### HB A1C ####[facility] PATH[facility] LABORAT[facility] [address] [place], [place], [address]Rklpqrqeqj (Bld) [Volume fraction]24.2 %Low36.0-46.0The [facility] Oper[facility] By [facility] HealthHealth SystemComment on above: Performed By: #### CBC ####[facility] PATHOLOGY ONLCATYMDM5915[address] [place] [address], #### HB A1C ####[facility] PATH[facility] LABORATORY [address] [place], [place], [address]Pamzsvnino (Bld) [Mass/Vol]7.8 g/dLLow12.0-15.0The [facility] Oper[facility] By [facility] Health[facility] SystemComment on above:Performed By: #### CBC ####[facility] PATHOLOGY OZALNTESNI9[address] [place] [address], #### HB A1C ####[facility] PATHOLOGY LABORATORY [address] [place] [address], [address]MJM (RBC) [Entitic mass]28.7 pg Jnkozv03.0-34.0The [facility] By [facility] Health[facility] SystemComment on above:Performed By: #### CBC ####[facility] PATHOLOGY YSDTPYTXBY4823[address] [place] [address], #### HB A1C ####[facility] PATHOLOGY LABORATORY [address] [place], [place], [address]EPEW (RBC) [Mass/Vol]32.3 g/kKPzbmey41.0-35.9 The [facility] SystemComment on above:Performed By: #### CBC ####[facility] PATHOLOGY PDFUDNOBII[address] [place] [address], #### HB A1C ####[facility] PATH[facility]Y LABORATORY [address] [place], [place], [address]JZK (RBC) [Entitic vol]89 eYQyepjf74-497Epp [facility] SystemComment on above:Performed By: #### CBC ####[facility] PATHOLOGY LROTHVHRCI20[address] [place] [address], #### HB A1C ####[facility] PATHOLOGY LABORATORY [address] [place], [place], [address]Vjohsesn mean volume (Bld) [Entitic vol]7.3 fLLow7.5-11.2The [facility] SystemComment on above: Performed By: #### CBC ####[facility] PATHOLOGY CBEHZREVDX[address] [place] [address], #### HB A1C ####[facility] PATHOLOGY LABORATORY [address] [place], [place], [address]Unxpcmeoy (Bld) [#/Vol]633 10*3/sVVeic688-227Iks [facility] SystemComment on above:Performed By: #### CBC ####[facility] PATHOLOGY OEXPHHLATY[address] [place] [address], #### HB A1C ####[facility] PATHOLOGY LABORATORY [address] [place], [place], [address]RQW (Bld) [#/Vol]2.72 10*6/uLLow 4.00-5.20The [facility] SystemComment on above:Performed By: #### CBC ####[facility] PATHOLOGY GWQMIHNMDJ[address] [place] [address], #### HB A1C ####[facility] PATHOLOGY LABORATORY [address] [place], [place], [address]NFV (Bld) [#/Vol]7.2 10*3/uLNormal4.5-11.5The [facility] SystemComment on above:Performed By: #### CBC ####[facility] PATHOLOGY NKBJXGZJUF[address] [place] [address], #### HB A1C ####[facility] PATH[facility] LABORATORY [address] [place], [place], [address]Mflp Plan Noteon [phone] Authentication Interface Message TextNoMemorial Hospital SystemConsultson [phone] Authentication Interface Message TextNoMemorial Hospital SystemTranscription Authentication Interface Message TextCatskill Regional Medical Center SystemDiabetes tracking panelOrdered By: Karthikeyan Christopher on 25-21-2742Ebizhom glucose Estimated from glycated hemoglobin (Bld) [Mass/Vol]143 mg/dLTHE [facility] FLOQDJIwT5v (Bld) [Mass fraction]6.6 % High4.0 - 5.6 %THE [facility] SYSTEMInterpretation and review of laboratory resultsAbNYU Langone Tisch Hospital SYSTEMTHE [facility] SYSTEMELECTROLYTESon 75-09-0737Wvvozzsg [Moles/Vol]108 mmol/RTkjv20-817Ooy [facility] SystemComment on above:Performed By: #### CR BGV, CR GLU, LACT, CR ICA, CR LYTES, CR COOX ####[facility] PATHOLOGY VOENMPDEDL3352VulwfFuayuc[address] [place] [address], [address]SEQ9 (Bld) [Moles/Vol]18 mmol/JHma03-78Ohf [facility] SystemComment on above: Performed By: #### CR BGV, CR GLU, LACT, CR ICA, CR LYTES, CR COOX ####[facility] PATHOLOGY GLEHRSYMKO1093KisgcLcyiby[address] [place] [address], [address]Xhknbpvfs [Moles/Vol]3.3 mmol/LLow3.5-5.0The [facility] SystemComment on above:Performed By: #### CR BGV, CR GLU, LACT, CR ICA, CR LYTES, CR COOX ####[facility] [id number] [place] [address], [phone] [Moles/Vol]142 mmol/CUsxnsf084-193Oze [facility] SystemComment on above:Performed By: #### CR BGV, CR GLU, LACT, CR ICA, CR LYTES, CR COOX ####[facility] [id number] [place] [address], [phone] [Moles/Vol]107 mmol/LNormal 98-107The [facility] SystemComment on above:Performed By: #### CR GLU, CR LYTES, CR COOX, CR BGV, CR ICA, LACT ####[facility] [id number] [place] [address], [id number] (Bld) [Moles/Vol]13 mmol/YRlq92-67Esb [facility] SystemComment on above:Performed By: #### CR GLU, CR LYTES, CR COOX, CR BGV, CR ICA, LACT ####[facility] [id number] [place] [address], [phone] [Moles/Vol]3.4 mmol/LLow3.5-5.0The [facility] SystemComment on above:Performed By: #### CR GLU, CR LYTES, CR COOX, CR BGV, CR ICA, LACT ####[facility] [id number] [place] [address], [phone] [Moles/Vol]138 mmol/DLfshds851-004Orl [facility] SystemComment on above:Performed By: #### CR GLU, CR LYTES, CR COOX, CR BGV, CR ICA, LACT ####[facility] PATHOLOGY JUVHTDAZVK3671RfjgcBnyq[address] [place] [address], [address]Vauafzni [Moles/Vol]108 mmol/LHigh98 - 107 mmol/L [facility] Work Phone: HCO3 (Bld) [Moles/Vol]18 mmol/LLow21 - 28 mmol/LTHE [facility] Work Phone: Interpretation and review of laboratory results AbnormalTHE [facility] Work Phone: Potassium [Moles/Vol]3.3 mmol/LLow3.5 - 5.0 mmol/LTHE [facility] Work Phone: Sodium [Moles/Vol]142 mmol/L136 - 146 mmol/LTHE [facility] Work Phone: [facility] Work Phone: Chloride [Moles/Vol]107 mmol/L98 - 107 mmol/LTHE [facility] Work Phone: HCO3 (Bld) [Moles/Vol]13 mmol/LLow21 - 28 mmol/LTHE [facility] Work Phone: Interpretation and review of laboratory results AbnormalTHE [facility] Work Phone: Potassium [Moles/Vol]3.4 mmol/LLow3.5 - 5.0 mmol/LTHE [facility] Work Phone: Sodium [Moles/Vol]138 mmol/L136 - 146 mmol/LTHE [facility] Work Phone: [facility] Work Phone: GLUCOSE, FINGERSTICK-IN OFFICEon 56-46-1738Wdbcppy [Mass/Vol]71 mg/kLJozzms24-218Dun [facility] SystemComment on above:Performed By: #### 59959 ####NURSING GLUCOSE MEJBNQN3252 [place], [place], [address]Ceyxfow [Mass/Vol]71 mg/dL68 - 110 mg/dLTHE [facility] Interpretation and review of laboratory resultsNormHealthSouth Medical CenterROSOUTHWEST GENER[facility] SYSTEMTHE [facility] SYSTEMGlucose [Mass/Vol]75 mg/tWVevydh21-701Nnh [facility] Comment on above:Performed By: #### [id number] ####NURSING GLUCOSE DWAVEBT0674 [place], [place], [address]Bppluah [Mass/Vol]75 mg/dL68 - 110 mg/dLTHE [facility] SYSTEMInterpretation and review of laboratory resultsNormHealthSouth Medical CenterROSOUTHWEST GENERAL [facility]ENTER SYSTEMTHE [facility] SYSTEMGlucose [Mass/Vol]233 mg/eWDgwq63-832Bbe [facility] SystemComment on above:Performed By: #### 26545 ####NURSING GLUCOSE MSMITKA2664 [place], [place], [address]Wsfzjft [Mass/Vol]289 mg/dL Nese68-349Tnc [facility] SystemComment on above:Performed By: #### 41800 ####NURSING GLUCOSE AGOIRPG1662 [place], [place], [address]Lgfrttg [Mass/Vol]233 mg/lEZdpy07 - 110 mg/dLTHE [facility] SYSTEMInterpretation and review of laboratory resultsAbnoFrye Regional Medical Center Alexander CampusROSOUTHWEST GENERAL [facility]ALTH [facility]ENTER SYSTEMTHE [facility] Glucose [Mass/Vol]374 mg/zVKwmi86-627Gpl [facility] HospitalroHealth SystemComment on above: Result Comment: Will Repeat TestNotified ALISTAIR KEY MDPerformed By: #### 14224 ####NURSING GLUCOSE HYUPYWU3808 [place], [place], [address]Jpvjuox [Mass/Vol]400 mg/fHLufi50-580Bpv [facility] HospitalroMetrohealth Main Campus Medical Center SystemComment on above:Performed By: #### 58950 ####NURSING GLUCOSE MEFGOJC[address] [place] [address], [address]Nsooylz [Mass/Vol]289 mg/bQLmxj30 - 110 mg/dLTHE [facility]OS[facility]ITALROHEALTH SYSTEM Interpretation and review of laboratory resultsAbnoFrye Regional Medical Center Alexander CampusROHEALTH SYSTEMTHE [facility] HOSPITALROHEALTH SYSTEMGlucose [Mass/Vol]450 mg/nLLyfh20-178Ofw [facility] Hospitalro[facility] System Comment on above:Performed By: #### 27321 ####NURSING GLUCOSE KWIOLIH0666 [place], [place], [address]Nismuda [Mass/Vol]374 mg/jAXria19 - 110 mg/dLTHE [facility]ALTH SYSTEMInterpretation and review of laboratory results AbnormalTHE [facility] FALL[facility] HOSPITALROHEALTH SYSTEMTHE [facility] SYSTEMGlucose [Mass/Vol]400 mg/dL High68 - 110 mg/dLTHE [facility] SYSTEMInterpretation and review of laboratory resultsAbnormHealthSouth Medical CenterROSOUTHWEST GENERAL [facility]ENTER SYSTEMTHE [facility] SYSTEMGlucose [Mass/Vol]450 mg/dZHovh53 - 110 mg/dLTHE [facility] SYSTEMInterpretation and review of laboratory resultsAbnoFrye Regional Medical Center Alexander CampusROSOUTHWEST GENERAL [facility]ALTH [facility]ENTER SYSTEMTHE [facility] SYSTEMGlucose [Mass/Vol]313 mg/lAHzwy90-116Dfx [facility] HospitalroHealth SystemComment on above:Performed By: #### 08730 ####NURSING GLUCOSE LCAECVS4875 [place], [place], [address]IALTTCT, WHOLE BLOODon 11-97-8415WZ GLU> 695Jsjt91-374Vvh [facility] HospitalroMetrohealth Main Campus Medical Center SystemComment on above:Performed By: #### CR BGV, CR GLU, LACT, CR ICA, CR LYTES, CR COOX ####[facility] PATHOLOGY KZFRTVWIHC5308BajqySazstt[address] [place] [address], [address]JQ XOD549 mg/yQGyov89-685Rso [facility] HospitalroScintella Solutions SystemComment on above: Performed By: #### CR GLU, CR LYTES, CR COOX, CR BGV, CR ICA, LACT ####[facility] PATHOLOGY QOZDYQXYQR7615VszayQizsqw[address] [place] [address], [address]Thjeten [Mass/Vol]mg/tQYeod59 - 105 mg/dLTHE [facility] FALLS HOSPITALW. W. Norton & Company SYSTEM Work Phone: Glucose [Mass/Vol]257 mg/tZTsdw67 - 105 mg/dLTHE GL[facility] FALLS HOSPITALROMojeek SYSTEM Work Phone: Interpretation and review of laboratory results AbnormalTHE [facility]ALLS HOSPITALW. W. Norton & Company SYSTEM Work Phone: THE [employer] SYSTEM Work Phone: H AND Grayson [phone] Authentication Interface Message TextNoFormerly Park Ridge HealthScintella Solutions SystemHEMOGLOBIN A1Con 07-10-2023 Glucose [Mass/Vol]143 mg/dLNoMemorial Hospital SystemComment on above: Performed By: #### CBC ####[facility] PATHOLOGY XSFARHTRFT[address] [place] [address], #### HB A1C ####[facility]ORATORY [address] [place] [address], [address]CjM0s (Bld) [Mass fraction]6.6 %High4.0-5.6The [facility], Operated By [facility]ovenant HealthScintella Solutions SystemComment on above:Performed By: #### CBC ####[facility] PATHOLOGY TXMFCHXXRX9839[address] [place] [address], #### HB A1C ####[facility] PATH[facility] LABORATORY [address] [place], [place], [address]HYONYR ACIDon 17-20-7219UV LACT4.2 mmol/LCritically high0.5-1.6The [facility], Operated By [facility] HealthScintella Solutions SystemComment on above:Performed By: #### CR BGV, CR GLU, LACT, CR ICA, CR LYTES, CR COOX ####[facility] PATH[facility] DFCSOFISLS3875MdaomOwxwrk[address] [place] [address], [address]MP LACT> 10.0Critically high0.5-1.6The [facility] SystemComment on above:Performed By: #### CR GLU, CR LYTES, CR COOX, CR BGV, CR ICA, LACT ####S PATHOLOGY KSCCAIORNJ4398OjghaLuinfm[address] [place] [address], [address]Cleelvzuykktdv and review of laboratory results AbnormalTHE salgomedROHEALTH SYSTEM Work Phone: Lactate [Moles/Vol]4.2 mmol/LCritically high0.5 - 1.6 mmol/LTHE [facility] Work Phone: THE salgomedROMojeek SYSTEM Work Phone: Interpretation and review of laboratory results AbnormalTHE salgomedROMojeek SYSTEM Work Phone: Lactate [Moles/Vol]mmol/LCritically high0.5 - 1.6 mmol/LTHE salgomedROMojeek SYSTEM Work Phone: THE salgomedROM[employer]jeek SYSTEM Work Phone: No Panel Informationon 25-18-8983Jswcdzlynowcrq and review of laboratory resultsAbnoLakeHealth Beachwood Medical Center salgomedROMojeek SYSTEM Work Phone: THE [employer] SYSTEM Work Phone: THE [facility] HOSPITALW. W. 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 Machine Set Up Operator Authentication Interface Message TextNoAtrium Health Pineville Rehabilitation HospitalroScintella Solutions System PARTIAL THROMBOPLASTIN TIMEon 31-86-1761bIUS Coag (Bld) [Time]24 aYjw96-91Uif [facility] HospitalroScintella Solutions SystemComment on above:Performed By: #### APTT, PT ####[facility] PATHOLOGY SVUGSEWZVG[address] [place] [address], [address]jOUY Coag (Bld) [Time] 24 sLowTHE METROMojeek SYSTEMInterpretation and review of laboratory results AbnormalTHE GLENS FALLS HOSPITALROMojeek SYSTEMPROTHROMBIN TIME AND INRon 43-21-0271TAK Coag (PPP) [Relative time]0.96 {INR}Normal0.90-1.10The [facility] HospitalroHealth SystemComment on above:Performed By: #### APTT, PT ####[facility] PATH[facility] GCOKTDZJNB8013 [place], [address]TY Coag (PPP) [Time]10.8 sNormal9.7-12.9The [facility] SystemComment on above:Performed By: #### APTT, PT ####[facility] PATHOLOGY TAQYVSLTSP6676 [place], [address]UCO Coag (PPP) [Relative time]0.96 {INR}0.90 - 1.10THE [facility] SYSTEMInterpretation and review of laboratory resultsNormMansfield Hospital SYSTEMPT Coag (PPP) [Time]10.8 sTHE [facility] SYSTEMProgress Noteson 67-09-6658Nddzrcrkwkocw Authentication Interface Message TextNoMemorial Hospital SystemTranscription Authentication Interface Message TextNoMemorial Hospital SystemTranscription Authentication Interface Message [id number]: Pt transported with this RN and PLYWOOD PATCHER to Preop for scheduled surgery. VSS pt alert and oriented x4. 1137: Pt back from OR in room 413 on 5W. Pt alert and oriented x4, VSS.NormalThe [facility] SystemTranscription Authentication Interface Message TextNoMemorial Hospital SystemTranscription Authentication Interface Message TextCrawford County Hospital District No.1Sc[employer] Solutions SystemAnesthesia Preprocedure Evaluationon 94-97-4861Sgheumwsyaygl Authentication Interface Message TextNoFormerly Park Ridge HealthScintella Solutions SystemBASIC METABOLIC PANELon 64-66-9888Ipxgy gap [Moles/Vol]10 mmol/XOjfipf67-98Ubu [facility] SystemComment on above:Performed By: #### MG, PHOS, CH8 ####[facility] PATHOLOGY PDZGPSKGGB0732 [place], [address]Qedufgl [Mass/Vol]8.1 mg/dLLow8.6-10.3The [facility] SystemComment on above:Performed By: #### MG, PHOS, CH8 ####[facility] PATHOLOGY DWGZZBFUFT0531 [place], [place], [address]Chloride [Moles/Vol]107 mmol/YXkilaa47-034Coo [facility] SystemComment on above:Performed By: #### BILL JAUREGUI CH8 ####[facility] PATHOLOGY RXYQJBNZRA2945 [place], [address]OE2 [Moles/Vol]24 mmol/TNrefsg11-20Whv [facility] SystemComment on above:Performed By: #### BILL JAUREGUI CH8 ####[facility] PATHOLOGY FRHMMXZQCF8710 [place], [address]Vopvdsdffa [Mass/Vol]0.49 mg/dLLow0.60-1.20The [facility] SystemComment on above:Performed By: #### BILL JAUREGUI CH8 ####S PATHOLOGY GTMUACJMVT6534 [place], [address]ENETMQMVW GFR (CKD-EPI)110 mL/min/1.73sqmNormal >=60The [facility] SystemComment on above:Result Comment: 2020 CKD EPI Equation using Creatinine without RaceComment: Estimated glomerular filtration rate (eGFR) is calculated without a race coefficient. Values should be interpreted in the context of the patient's full clinical presentation.Reference:1. Cooper C, Liv M, Karyn DC, et al.. A Unifying Approach for GFR Estimation: Recommendations of the NKF-ASN Task Force on Reassessing the Inclusion of Race in Diagnosing Kidney Disease. [place] Journal of Kidney Diseases 2021;79(2):26 8-88.e1.2. N Engl J Med 1 Vol. 385 Issue 19 Pages 5569-0191Performed By: #### BILL JAUREGUI CH8 ####[facility] PATHOLOGY XHNVRQFHJT7436 [place], [address]Hprsjge [Mass/Vol]321 mg/sXDtnl40-554Kcp [facility] SystemComment on above:Performed By: #### BILL JAUREGUI CH8 ####[facility] PATHOLOGY SHNRPSPQGD1606 [place], [address]Rqgjktifr [Moles/Vol]4.2 mmol/LNormal 3.5-5.0The [facility] SystemComment on above:Performed By: #### BILL JAUREGUI CH8 ####[facility] PATHOLOGY ZPORQOSFGU7055 [place], Sodium [Moles/Vol]137 mmol/OJboewa698-648Xac [facility] SystemComment on above: Performed By: #### BILL JAUREGUI CH8 ####MHSangeetha PATHOLOGY PTCRQFAERI0425 [place], [address]Oyyw nitrogen [Mass/Vol]11 mg/dLNormal7-25The [facility] HospitalroHealth SystemComment on above:Performed By: #### BILL JAUREGUI CH8 ####[facility] PATHOLOGY EEUCFRITZG0342 [place], [address]Txkap metabolic 2000 panelOrdered By: Toya Solis on 72-26-4773Utdbw gap [Moles/Vol]10 mmol/L10 - 20THE [facility] SYSTEMCalcium [Mass/Vol]8.1 mg/dLLow 8.6 - 10.3 mg/dLTHE [facility] SYSTEMChloride [Moles/Vol]107 mmol/L98 - 107 mmol/LTHE [facility] SYSTEMCO2 [Moles/Vol]24 mmol/L21 - 31 mmol/LTHE [facility] SYSTEMCreatinine [Mass/Vol]0.49 mg/dLLow0.60 - 1.20 mg/dLTHE [facility] SYSTEMGFR/1.73 sq M.predicted CKD-EPI (S/P/Bld) [Vol rate/Area]110- PINFTHE [facility]ALTH SYSTEMGlucose [Mass/Vol]321 mg/zQDijx48 - 109 mg/dLTHE [facility] SYSTEMInterpretation and review of laboratory resultsAbnoFrye Regional Medical Center Alexander CampusROHEALTH SYSTEMPotassium [Moles/Vol]4.2 mmol/L3.5 - 5.0 mmol/LTHE [facility] SYSTEMSodium [Moles/Vol]137 mmol/L136 - 145 mmol/LTHE [facility] SYSTEMUrea nitrogen [Mass/Vol]11 mg/dL7 - 25 mg/dLTHE [facility] SYSTEMTHE [facility] SYSTEMBlood Attestationon 16-46-8537Utdztxyyaolln Authentication Interface Message TextNoAtrium Health Pineville Rehabilitation HospitalroMetrohealth Main Campus Medical Center SystemCBC panel Auto (Bld)on 07-09-2023 Erythrocyte distribution width (RBC) [Ratio]17.6 %High11.5 - 14.5 %[facility] Work Phone: [phone] (Bld) [Volume fraction]21.3 %Low36.0 - 46.0 %THE [employer] SYSTEM Work Phone: [phone] (Bld) [Mass/Vol]7.2 g/dLLow12.0 - 15.0 g/dL THE [employer] [facility] Work Phone: [phone] and review of laboratory results AbnormalTHE [employer] Work Phone: [phone] (RBC) [Entitic mass]29.9 pg26.0 - 34.0 pgTHE [employer] SYSTEM Work Phone: MCHC (RBC) [Mass/Vol]33.8 g/dL32.0 - 35.9 g/dLTHE [employer] Work Phone: [phone] (RBC) [Entitic vol]89 fL80 - 100 fLTHE [employer] SYSTEM Work Phone: [phone] mean volume (Bld) [Entitic vol]7.1 fLLow7.5 - 11.2 fLTHE [employer] SYSTEM Work Phone: [phone] (Bld) [#/Vol]758 10*3/vZXziu343 - 400 K/uL THE [employer] Work Phone: [phone] (Bld) [#/Vol]2.40 10*6/uLLowTHE [employer] SYSTEM Work Phone: [phone] (Bld) [#/Vol]7.7 10*3/uL4.5 - 11.5 K/uLTHE [employer] SYSTEM Work Phone: [phone] [employer] [facility] Work Phone: COMPLETE BLOOD COUNTon 62-09-9138Ctunorfbhlq distribution width (RBC) [Ratio]17.6 %High11.5-14.5The ZeaKalComment on above:Performed By: #### CBC ####[facility] PATH[facility]Y ALKBIXZCAU4583 [facility] [place], [address]Izcdhswsmd (Bld) [Volume fraction]21.3 %Low 36.0-46.0The [facility] HospitalroHealth SystemComment on above:Performed By: #### CBC ####[facility] PATHOLOGY IJXTPXBYNU[address] [place] [address], [address]Clcuiljosu (Bld) [Mass/Vol]7.2 g/dLLow12.0-15.0The [facility] HospitalroHealth SystemComment on above: Performed By: #### CBC ####[facility] PATHOLOGY ASRIAFPMKR6[address] [place] [address], [address]HVL (RBC) [Entitic mass]29.9 krSuivxg94.0-34.0The [facility], Operated By [facility] HealthHealth SystemComment on above:Performed By: #### CBC ####[facility] PATHOLOGY VHHXWKVQWV8040[address] [place] [address], [address]QHIK (RBC) [Mass/Vol] 33.8 g/zWNbhwbv28.0-35.9The [facility], Operated By [facility] HealthHealth SystemComment on above:Performed By: #### CBC ####[facility] PATHOLOGY USZFVPVCHZ95[address] [place] [address], [address]VSD (RBC) [Entitic vol]89 ySOjuafj81-406Xnp [facility], Operated By [facility] HealthHealth SystemComment on above:Performed By: #### CBC ####[facility] PATHOLOGY ZCAAMAYKRG8154[address] [place] [address], [address]Eoljmqdt mean volume (Bld) [Entitic vol]7.1 fLLow 7.5-11.2The [facility], Operated By [facility] HealthHealth SystemComment on above:Performed By: #### CBC ####[facility] PATHOLOGY SVHPJJHWMX5964[address] [place] [address], [address]Iyqgazusw (Bld) [#/Vol]758 10*3/lFDfyf314-673Wpz [facility], Operated By [facility] HealthHealth SystemComment on above: Performed By: #### CBC ####[facility] PATHOLOGY WSPGCVCQWO[address] [place] [address], [address]VVB (Bld) [#/Vol]2.40 10*6/uLLow4.00-5.20The [facility], Oper[facility] By [facility] HealthHealth SystemComment on above:Performed By: #### CBC ####[facility] PATHOLOGY OQBOXRTKFA8415 [place], [address]GNK (Bld) [#/Vol]7.7 10*3/uLNormal4.5-11.5The MetroScintella Solutions SystemComment on above:Performed By: #### CBC ####[facility] PATHOLOGY VHFSNIYVOW3060 [place], [place], [place] HEAD W/O CONTRASTon 64-47-4379SA HEAD W/O CONTRASTNormalThe [facility]Health SystemCT Head WO contraston 35-58-6803EH BRK6335.5 (mGy.cm)[facility] Work Phone: CT SeriesHeadTHE [facility] Work Phone: CTDI VOL67.5 (mGy)[facility] Work Phone: PHANTOM TYPEIEC Head Dosimetry PhantomTHE [facility] Work Phone: RADIOLOGYTHE METROMojeek SYSTEM Work Phone: THE salgomedROM[employer]jeek SYSTEM Work Phone: Radiology Study observation (narrative)[facility] Work Phone: Consultson [phone] Authentication Interface Message TextPhysical Therapy Attempted to see pt this PM for treatment, pt politely declined participation due to just walking w/staff and wants to rest. Scheduled for EVD removal 07/09 per chart. Will continue to follow. Estee Maya, PTNormalThe [facility] HospitalroScintella Solutions SystemTranscription Authentication Interface Message TextNormSouthview Medical Centere [facility] HospitalroScintella Solutions SystemTranscription Authentication Interface Message TextxNormSouthview Medical Centere [facility] HospitalroScintella Solutions SystemGLUCOSE, FINGERSTICK-IN OFFICEon 76-36-3042Exzksju [Mass/Vol]313 mg/rYGcxp05 - 110 mg/dLTHE [facility] SYSTEMInterpretation and review of laboratory resultsAbnormalTHE [facility] SYSTEMTHE [facility] SYSTEMGlucose [Mass/Vol]272 mg/pYNhdh08-058Vcr [facility] SystemComment on above:Result Comment: Notified ALISTAIR KEY MDPerformed By: #### 10107 ####NURSING GLUCOSE TODBHWV0457 [place], [address] Glucose [Mass/Vol]272 mg/qSJvme97 - 110 mg/dLTHE [facility] HOSPITALROSOUTHWE[facility] SYSTEM Interpretation and review of laboratory resultsAbnoUC Medical Center SYSTEMTHE [facility] HOSPITALROHEALTH SYSTEMGlucose [Mass/Vol]375 mg/yXDqlk54-374Bna [facility] HospitalroMetrohealth Main Campus [facility] System Comment on above:Performed By: #### 76733 ####NURSING GLUCOSE MGADHVY[address] [place] [address], [address]Hsppwow [Mass/Vol]375 mg/bKNdvm02 - 110 mg/dLTHE [facility] HOSPITALROSOUTHWEST GENER[facility] SYSTEMInterpretation and review of laboratory results AbnormalTHE [facility]OSPITALROSOUTHWEST GENER[facility]ENTER SYSTEMTHE [facility] HOSPITALROHEALTH SYSTEMGlucose [Mass/Vol]393 mg/dL Qsge46-462Cpw [facility] SystemComment on above:Performed By: #### 10812 ####NURSING GLUCOSE GKTQLMU7[address] [place] [address], [address]Whbeuki [Mass/Vol]393 mg/mNFupr74 - 110 mg/dLTHE [facility] HOSPITALROSOUTHWEST GENER[facility] SYSTEMInterpretation and review of laboratory resultsAbKettering Health Washington TownshipTHE [facility] HOSPITALROSOUTHWEST [facility] SYSTEM Glucose [Mass/Vol]295 mg/fCYtli76-429Mji [facility] SystemComment on above: Performed By: #### 09520 ####NURSING GLUCOSE JGIAGZT[address] [place] [address], [address]Ttfwkxctmr - Blood bankon 29-30-3656ZST and Rh group Nom (Bld)Blood group A Rh(D) positiveTHE [facility] SYSTEMMAGNESIUMon 28-39-6641Ujwldxgwr [Mass/Vol]1.7 mg/dLLow1.9-2.7The [facility] SystemComment on above:Result Comment: Note updated reference ranges.Performed By: #### MG, PHOS, CH8 ####[facility] PATHOLOGY PWDJBTRHXG88[address] [place] [address], [address]Interpretation and review of laboratory resultsAbnoUC Medical Center SYSTEMMagnesium [Mass/Vol]1.7 mg/dLLow1.9 - 2.7 mg/dLTHE [facility] SYSTEMNo Panel Informationon 76-93-4815TLZ [facility]ALTH SYSTEMPHOSPHORUSon 07-09-2023 Phosphate [Mass/Vol]2.7 mg/dLNormal2.5-5.0The [facility] HospitalroHealth SystemComment on above:Result Comment: Note updated reference ranges.Performed By: #### BILL JAUREGUI, RADHIKA ####[facility] PATHOLOGY MXIBSIYFYD1635 [place], Interpretation and review of laboratory resultsNormHealthSouth Medical CenterROHEALTH SYSTEM Phosphate [Mass/Vol]2.7 mg/dL2.5 - 5.0 mg/dLTHE [facility] HOSPITALROSOUTHWEST GENER[facility] SYSTEMProgress Notes on 19-22-2109Xtykskejywcdc Authentication Interface Message TextNoAtrium Health Pineville Rehabilitation HospitalroHealth SystemTranscription Authentication Interface Message TextNoAtrium Health Pineville Rehabilitation HospitalroHealth SystemTranscription Authentication Interface Message TextGuthrie Cortland Medical CenterroScintella Solutions SystemRED BLOOD CELL UNIT STATUSon 84-96-1800Mjpmz Product Code [id number] [facility] SYSTEMBlood Product DescriptionRed Blood CellsTHE METROHEALTH SYSTEMBlood product unit Nom (BPU) [ID][id number] [facility] SYSTEMBlood Product Unit Ebax4737PIO [facility]OSPITALROSOUTHWEST [facility] SYSTEMMajor crossmatch [Interp] Compatible (E)THE [facility] HOSPITALROHEALTH SYSTEMStatusTransfusedTHE [facility] HOSPITALROSOUTHWEST GENER[facility]ENTER SYSTEMTHE [facility] HOSPITALROHEALTH SYSTEMTYPE AND SCREENon 99-28-0055ZSZ and Rh group Nom (Bld)Blood group A Rh(D) positiveNoMemorial Hospital SystemComment on above:Performed By: #### TS ####[facility] PATHOLOGY JVYHSHSCJU8540 [place], [address]GQYD INTNegativeNoMemorial Hospital SystemComment on above:Performed By: #### TS ####[facility] PATHOLOGY GMPBEDVQDO5520 [place], [address]Anrza group antibody screen QlNegativeTHE [facility]ALLS HOSPITALROMOHAWK VALLEY PSYCHIATRIC CENTERTHE [facility] HOSPITALROSOUTHWEST [facility]ENTER SYSTEMBASIC METABOLIC PANELon 61-92-5424Uelbu gap [Moles/Vol]11 mmol/LLccosb81-30Wgn [facility] SystemComment on above:Performed By: #### CH8, MG PHOS ####[facility] PATHOLOGY XFZSUMGTJJ8857 [place], [place], [address] Calcium [Mass/Vol]8.1 mg/dLLow8.6-10.3The [facility], Operated By [facility] HealthHealth SystemComment on above:Performed By: #### MG GARRIDO PHOS ####[facility] PATHOLOGY MUJCSLCKTV4687 [place], [address]Apajeefv [Moles/Vol]110 mmol/LHigh 98-107The [facility] HospitalroHealth SystemComment on above:Performed By: #### MG RADHIKA, BILL ####[facility] PATHOLOGY ZWKLLDZNWB8829 [place], [address]EA8 [Moles/Vol]24 mmol/BPbcclg06-81Ikz [facility] SystemComment on above:Performed By: #### MG GARRIDO PHOS ####[facility] PATHOLOGY WJNRIADDBN3627 [place], [address]Zmvcbhnqoz [Mass/Vol]0.45 mg/dLLow0.60-1.20The [facility], Operated By [facility] HealthHealth SystemComment on above:Performed By: #### MG RADHIKA, VENKATS ####[facility] PATHOLOGY KZXYSRGIYD7407 [place], [address]RFSPFQBLY GFR (CKD-EPI)112 mL/min/1.73sqmNormal>=60The [facility] SystemComment on above: Result Comment: 2020 CKD EPI Equation using Creatinine without RaceComment: Estimated glomerular filtration rate (eGFR) is calculated without a race coefficient. Values should be interpreted in the context of the patient's full clinical presentation.Reference:1. Cooper C, Liv M, Karyn VILCHIS, et al.. A Unifying Approach for GFR Estimation: Recommendations of the NKF-ASN Task Force on Reassessing the Inclusion of Race in Diagnosing Kidney Disease. [place] Journal of Kidney Diseases 2021;79(2):268-88.e1.2. N Engl J Med 1 Vol. 385 Issue 19 Pages 3554-6144Performed By: #### HUBER8MG, VENKATS ####[facility] PATHOLOGY QCOTCIQYYI6677 [place], [address]Uykvayc [Mass/Vol]149 mg/kWUdid04-895Kof [facility] SystemComment on above:Performed By: #### HUBER8, MG, PHOS ####[facility] PATHOLOGY FDLLYGKVVE2911 [place], [place], [address] Potassium [Moles/Vol]4.0 mmol/LNormal3.5-5.0The [facility] Comment on above:Performed By: #### RADHIKA, MG, PHOSangeetha ####[facility] PATHOLOGY GJJPERPIAP6670 [place], [address]Kwgxsf [Moles/Vol]141 mmol/YClwfhe724-692Ktj [facility] HospitalroHealth SystemComment on above:Performed By: #### RADHIKA, MG, PHOSangeetha ####[facility] PATHOLOGY EYDRFTJCPQ3070 [place], [address]Uwel nitrogen [Mass/Vol]12 mg/dLNormal7-25The [facility] Comment on above:Performed By: #### RADHIKA, , PHOSangeetha ####S PATHOLOGY HEAWMQKJLU3902 [place], [address]Mkiso metabolic 2000 panelon 57-26-4504Cnqrj gap [Moles/Vol]11 mmol/L10 - 20[facility] Calcium [Mass/Vol]8.1 mg/dLLow8.6 - 10.3 mg/dLTHE [facility] SYSTEMChloride [Moles/Vol]110 mmol/LHigh98 - 107 mmol/LTHE [facility] SYSTEMCO2 [Moles/Vol]24 mmol/L21 - 31 mmol/LTHE [facility] SYSTEMCreatinine [Mass/Vol]0.45 mg/dLLow0.60 - 1.20 mg/dLTHE [facility]RO[facility]ALTH SYSTEMGFR/1.73 sq M.predicted CKD-EPI (S/P/Bld) [Vol rate/Area]112- PINFTHE [facility] SYSTEMGlucose [Mass/Vol]149 mg/cNVvma33 - 109 mg/dLTHE [facility] SYSTEMPotassium [Moles/Vol]4.0 mmol/L3.5 - 5.0 mmol/L [facility] SYSTEMSodium [Moles/Vol]141 mmol/L136 - 145 mmol/LTHE [facility] SYSTEMUrea nitrogen [Mass/Vol]12 mg/dL7 - 25 mg/dLTHE [facility] SYSTEMCBC panel Auto (Bld)on 98-49-5799Qurfqoarcnt distribution width (RBC) [Ratio]18.0 %High11.5 - 14.5 %[facility] SYSTEMHematocrit (Bld) [Volume fraction]21.8 %Low36.0 - 46.0 %[facility] SYSTEMHemoglobin (Bld) [Mass/Vol] 7.8 g/dLLow12.0 - 15.0 g/dLTHE [facility] SYSTEMInterpretation and review of laboratory resultsAbnormalTHE [facility]RO[facility]ALTH SYSTEMMCH (RBC) [Entitic mass]31.5 pg 26.0 - 34.0 pgTHE METROHEALTH SYSTEMMCHC (RBC) [Mass/Vol]35.9 g/dL32.0 - 35.9 g/dLTHE [facility]RO[facility]ALTH SYSTEMMCV (RBC) [Entitic vol]88 fL80 - 100 fLTHE METRO[facility]ALTH SYSTEMPlatelet mean volume (Bld) [Entitic vol]7.1 fLLow7.5 - 11.2 fLTHE METRO[facility]ALTH SYSTEMPlatelets (Bld) [#/Vol]581 10*3/dGYzgd571 - 400 K/uLTHE METRO[facility]ALTH SYSTEMRBC (Bld) [#/Vol]2.48 10*6/uLLowTHE METRO[facility]ALTH SYSTEMWBC (Bld) [#/Vol]6.6 10*3/uL4.5 - 11.5 K/uLTHE [facility] SYSTEMTHE [facility]ALTH SYSTEMCOMPLETE BLOOD COUNTon 83-36-9010Pqhfnypclfj distribution width (RBC) [Ratio]18.0 %High11.5-14.5The [facility] SystemComment on above:Performed By: #### CBC ####S PATHOLOGY HUGKAXYMBF1783 [place], [address]Vlnjehgfrt (Bld) [Volume fraction]21.8 %Low36.0-46.0The [facility]roHealth SystemComment on above:Performed By: #### CBC ####S PATHOLOGY GAPJEWNJRC5230 [place], [address]Iiwnpjjivz (Bld) [Mass/Vol]7.8 g/dLLow 12.0-15.0The [facility] SystemComment on above:Performed By: #### CBC ####[facility] PATHOLOGY PRKRZZHDPH5361 [place], [address]RRB (RBC) [Entitic mass]31.5 taNerhyq00.0-34.0The [facility] HospitalroHealth SystemComment on above: Performed By: #### CBC ####[facility] PATHOLOGY MHAAVEWFDH[address] [place] [address], [address]AGKV (RBC) [Mass/Vol]35.9 g/hHHuccvo71.0-35.9The [facility] HospitalroHealth SystemComment on above:Performed By: #### CBC ####[facility] PATHOLOGY VWUAMKJZHH[address] [place] [address], [address]YYT (RBC) [Entitic vol] 88 qZHwbiye43-941Bws [facility] By [facility] HealthHealth SystemComment on above:Performed By: #### CBC ####[facility] PATHOLOGY XNGEEOAXIO[address] [place] [address], Platelet mean volume (Bld) [Entitic vol]7.1 fLLow7.5-11.2The [facility] Comment on above:Performed By: #### CBC ####[facility] PATHOLOGY SGQQJKPLFL[address] [place] [address], [address]Zifyxvlbq (Bld) [#/Vol]581 10*3/uLHigh 150-400The [facility] SystemComment on above:Performed By: #### CBC ####[facility] PATHOLOGY HROKDTLOOT[address] [place] [address], [address]CCH (Bld) [#/Vol]2.48 10*6/uLLow4.00-5.20The [facility] SystemComment on above:Performed By: #### CBC ####[facility] PATHOLOGY OXEHNNVWOX[address] [place] [address], [address]ZWU (Bld) [#/Vol]6.6 10*3/uLNormal4.5-11.5The [facility] System Comment on above:Performed By: #### CBC ####[facility] PATHOLOGY XZHLMMSEZQ[address] [place] [address], [address]QDVZNJP, FINGERSTICK-IN OFFICEon 91-85-8081Llzfbpn [Mass/Vol]295 mg/gIJrkw41 - 110 mg/dLTHE [facility] Interpretation and review of laboratory resultsAbnoFrye Regional Medical Center Alexander CampusROHEALTH SYSTEMTHE [facility] SYSTEMGlucose [Mass/Vol]144 mg/nMYorw42-826Ctk [facility] Comment on above:Performed By: #### 08299 ####NURSING GLUCOSE VWSLGWN[address] [place] [address], [address]Afuswnf [Mass/Vol]141 mg/uCCezc06-765Xqb [facility] HospitalroHealth SystemComment on above:Performed By: #### [id number] ####NURSING GLUCOSE CNPPVYX[address] [place] [address], [address]Jjimvho [Mass/Vol]141 mg/dLHigh 68 - 110 mg/dLTHE [facility]ALTH SYSTEMGlucose [Mass/Vol]144 mg/nRZocp07 - 110 mg/dLTHE [facility] SYSTEMGlucose [Mass/Vol]277 mg/wUClqo57-758Mzq [facility] HospitalroHealth SystemComment on above:Performed By: #### 70170 ####NURSING GLUCOSE JJTZZRB[address] [place] [address], [address]Ufhltdq [Mass/Vol]277 mg/gXLsjx69 - 110 mg/dLTHE [facility] SYSTEMInterpretation and review of laboratory results AbnormalTHE METROSOUTHWEST GENERAL [facility]ENTER SYSTEMTHE [facility]ALTH SYSTEMGlucose [Mass/Vol]232 mg/dL Rjqf43-743Iha [facility] HospitalroHealth SystemComment on above:Performed By: #### 08680 ####NURSING GLUCOSE PXYJOBB[address] [place] [address], [address]Qcukgno [Mass/Vol]232 mg/qEXcqy56 - 110 mg/dLTHE [facility]ITALROSOUTHWE[facility] SYSTEMInterpretation and review of laboratory resultsAbnoFrye Regional Medical Center Alexander CampusROSOUTHWEST GENERAL HEALTH CENTER SYSTEMTHE [facility] Glucose [Mass/Vol]170 mg/uCUvit97-036Wzg [facility] HospitalroHealth SystemComment on above: Performed By: #### 94301 ####NURSING GLUCOSE UHDXIXL[address] [place] [address], [address]LLQVBJCVDpq 64-95-6840Ynidhjrxp [Mass/Vol]1.4 mg/dLLow 1.9-2.7The [facility] SystemComment on above:Result Comment: Note updated reference ranges.Performed By: #### MG GARRIDO PHOS ####[facility] WWHXQNFCVN8248 [place], [address]Aszyazrzf [Mass/Vol]1.4 mg/dLLow1.9 - 2.7 mg/dLTHE [facility] SYSTEMNo Panel Informationon 07-08-2023 Interpretation and review of laboratory resultsAbnoUC Medical Center SYSTEMTHE [facility]OSPITALROSOUTHWEST [facility] SYSTEMInterpretation and review of laboratory resultsAbnoFisher-Titus Medical CenterTHE [facility] SYSTEMPHOSPHORUSon 94-50-1710Muvoqzamn [Mass/Vol]3.6 mg/dLNormal2.5-5.0The [facility] SystemComment on above:Result Comment: Note updated reference ranges.Performed By: #### MG GARRIDO PHOS ####[facility] XYAPQBRXCW[address] [place] [address], Interpretation and review of laboratory resultsNoUC Medical Center SYSTEM Phosphate [Mass/Vol]3.6 mg/dL2.5 - 5.0 mg/dLTHE [facility] SYSTEMProgress Notes on 34-66-6400Uhbdahizvwkcq Authentication Interface Message TextCatskill Regional Medical Center SystemTranscription Authentication Interface Message TextCatskill Regional Medical Center SystemBASIC METABOLIC PANELon 25-69-3989Cqgti gap [Moles/Vol]10 mmol/OEkzpsv60-45Jvi [facility] SystemComment on above:Performed By: #### BILL JAUREGUI CH8 ####MHSangeetha PATHOLOGY FTCLPHVALW[address] [place] [address], 44 [address]Calcium [Mass/Vol]8.1 mg/dLLow8.6-10.3The [facility] SystemComment on above:Performed By: #### BILL JAUREGUI CH8 ####[facility] PATHOLOGY IXXYGBTPZI8896 [place], [address]Gshvgeok [Moles/Vol]110 mmol/LHigh 98-107The [facility] SystemComment on above:Performed By: #### BILL JAUREGUI CH8 ####MHSangeetha PATHOLOGY TTHMMZRHAI5446 [place], [address]RS7 [Moles/Vol]27 mmol/ZFydfmw98-35Svq [facility] HospitalroHealth SystemComment on above:Performed By: #### BILL JAUREGUI CH8 ####Sangeetha PATHOLOGY XVKRYHTOVF8579 [place], [address]Bqqcwocesx [Mass/Vol]0.40 mg/dLLow0.60-1.20The [facility] SystemComment on above:Performed By: #### BILL JAUREGUI CH8 ####Sangeetha PATHOLOGY LMFYVXUCWI8581 [place], [address]JCCGRKTIV GFR (CKD-EPI)115 mL/min/1.73sqmNormal>=60The [facility] By [facility] HealthHealth SystemComment on above: Result Comment: 2020 CKD EPI Equation using Creatinine without RaceComment: Estimated glomerular filtration rate (eGFR) is calculated without a race coefficient. Values should be interpreted in the context of the patient's full clinical presentation.Reference:1. Cooper C, Liv M, Karyn VILCHIS, et al.. A Unifying Approach for GFR Estimation: Recommendations of the NKF-ASN Task Force on Reassessing the Inclusion of Race in Diagnosing Kidney Disease. [place] Journal of Kidney Diseases 202;79(2):268-88.e1.2. N Engl J Med 1 Vol. 385 Issue 19 Pages 1662-1980Performed By: #### BILL JAUREGUI CH8 ####[facility] YSMCMBEJOW7115 [place], [address]Sktfmfv [Mass/Vol]98 mg/pBDehowl57-763Nij [facility] SystemComment on above:Performed By: ###BILL FOWLER CH8 ####Sangeetha PATHOLOGY VFXHWNVJIE2650 [place], [place], 44 Potassium [Moles/Vol]3.9 mmol/LNormal3.5-5.0The [facility] System Comment on above:Performed By: ###BILL FOWLER CH8 ####[facility] NNFHGWWHUP0854 [place], [address]Zgkjjk [Moles/Vol]143 mmol/EQutieh979-038Hwb [facility] SystemComment on above:Performed By: #### BILL JAUREGUI CH8 ####[facility] PATHOLOGY AKMPBUYTBU5418 [facility] [place] [facility], [address]Urea nitrogen [Mass/Vol]12 mg/dLNormal7-25The [facility] SystemComment on above:Performed By: #### BILL JAUREGUI CH8 ####[facility] PATHOLOGY NRCIUSYPZD2330 [place], [address]Tdtok metabolic 2000 panelon 07-84-3854Kfuiq gap [Moles/Vol]10 mmol/L10 - 20THE [facility] SYSTEMCalcium [Mass/Vol]8.1 mg/dLLow8.6 - 10.3 mg/dLTHE [facility] SYSTEMChloride [Moles/Vol] 110 mmol/LHigh98 - 107 mmol/LTHE [facility] SYSTEMCO2 [Moles/Vol]27 mmol/L21 - 31 mmol/LTHE [facility] SYSTEMCreatinine [Mass/Vol]0.40 mg/dLLow0.60 - 1.20 mg/dLTHE [facility] SYSTEMGFR/1.73 sq M.predicted CKD-EPI (S/P/Bld) [Vol rate/Area]115- PINFTHE [facility] SYSTEMGlucose [Mass/Vol]98 mg/dL74 - 109 mg/dLTHE [facility] SYSTEMPotassium [Moles/Vol]3.9 mmol/L3.5 - 5.0 mmol/LTHE [facility] SYSTEMSodium [Moles/Vol]143 mmol/L136 - 145 mmol/LTHE [facility] SYSTEMUrea nitrogen [Mass/Vol]12 mg/dL7 - 25 mg/dLTHE [facility] SYSTEMCBC panel Auto (Bld)on 08-72-6413Iwwxtsykymh distribution width (RBC) [Ratio]18.0 % High11.5 - 14.5 %THE [facility] SYSTEMHematocrit (Bld) [Volume fraction]24.8 % Low36.0 - 46.0 %THE [facility] SYSTEMHemoglobin (Bld) [Mass/Vol]8.0 g/dLLow12.0 - 15.0 g/dLTHE [facility] SYSTEMInterpretation and review of laboratory resultsAbnormalTHE [facility]RO[facility]ALTH SYSTEMMCH (RBC) [Entitic mass]28.4 pg26.0 - 34.0 pgTHE [facility]OSPITALROSOUTHWEST [facility] SYSTEMMCHC (RBC) [Mass/Vol]32.4 g/dL32.0 - 35.9 g/dLTHE [facility]ITALROSOUTHWEST GENER[facility] SYSTEMMCV (RBC) [Entitic vol]88 fL80 - 100 fLTHE [facility]ITALROSOUTHWE[facility] SYSTEM Platelet mean volume (Bld) [Entitic vol]7.1 fLLow7.5 - 11.2 fLTHE [facility]ITALROSOUTHWE[facility] SYSTEMPlatelets (Bld) [#/Vol]639 10*3/tHUlkh124 - 400 K/uLTHE [facility]ITALROSOUTHWE[facility] SYSTEM RBC (Bld) [#/Vol]2.83 10*6/uLLowTHE [facility]ITALROSOUTHWEST GENER[facility]ENTER SYSTEMWBC (Bld) [#/Vol]7.5 10*3/uL4.5 - 11.5 K/uLTHE [facility]ITALROSOUTHWEST [facility] SYSTEMTHE [facility]OSPITALROSOUTHWEST GENER[facility]ENTER SYSTEMCOMPLETE BLOOD COUNTon 59-55-5399Jbdruejbmyy distribution width (RBC) [Ratio]18.0 %High 11.5-14.5The [facility] SystemComment on above:Performed By: #### CBC ####[facility] PATHOLOGY NRSEAKLZZA[address] [place] [address], [address]Tgexepyowt (Bld) [Volume fraction]24.8 %Low36.0-46.0The [facility] SystemComment on above: Performed By: #### CBC ####[facility] PATHOLOGY AYORRMUTYZ2197 [place], [address]Bgpdwzoxyx (Bld) [Mass/Vol]8.0 g/dLLow12.0-15.0The [facility] SystemComment on above:Performed By: #### CBC ####S PATHOLOGY SEYQPYOYKU7933 [place], [address]MFD (RBC) [Entitic mass]28.4 xqJoxbid41.0-34.0The [facility] SystemComment on above:Performed By: #### CBC ####S PATHOLOGY EIRZLWODZU5688 [place], [address]RWEP (RBC) [Mass/Vol]32.4 g/rRIudtkb07.0-35.9The [facility] System Comment on above:Performed By: #### CBC ####S PATHOLOGY LDECYKTAJJ7859 [place], [address]RVD (RBC) [Entitic vol]88 fLNormal 80-100The [facility]roHealth SystemComment on above:Performed By: #### CBC ####S PATHOLOGY LGJVRFKRZB5611 [place], [address]Ewaygbso mean volume (Bld) [Entitic vol]7.1 fLLow7.5-11.2The [facility]roHealth SystemComment on above:Performed By: #### CBC ####S PATHOLOGY DGWWBVUWKX0229 [place], [address]Yqnmaeilb (Bld) [#/Vol]639 10*3/mZCgma841-660Tcu [facility] HospitalroMetrohealth [facility] SystemComment on above:Performed By: #### CBC ####[facility] PATHOLOGY GHGYKQZCXW[address] [place] [address], [address]ETX (Bld) [#/Vol]2.83 10*6/uLLow4.00-5.20The [facility]roHealth SystemComment on above:Performed By: #### CBC ####S PATHOLOGY NMHHBCGOEA[address] [place] [address], [address]MUW (Bld) [#/Vol]7.5 10*3/uLNormal4.5-11.5The [facility] SystemComment on above: Performed By: #### CBC ####S PATHOLOGY PRYBPJERSL8572 [place], [address]SHBDMVZ, FINGERSTICK-IN OFFICEon 54-63-5785Bifrhzw [Mass/Vol]170 mg/sGAqkb25 - 110 mg/dLTHE [facility]ITALROSOUTHWE[facility] SYSTEMInterpretation and review of laboratory resultsAbnormalTHE [facility]OS[facility]ITALROSOUTHWE[facility] SYSTEMTHE [facility] Glucose [Mass/Vol]152 mg/dYVmxm93-725Ayo [facility] HospitalroMetrohealth [facility] SystemComment on above: Result Comment: Notified ALISTAIR KEY MDPerformed By: #### [id number] ####NURSING GLUCOSE WPEITMU1190 [place], [place], [address]Pjdwzzb [Mass/Vol]152 mg/dLHigh 68 - 110 mg/dLTHE [facility] SYSTEMInterpretation and review of laboratory resultsAbnoFisher-Titus Medical CenterTHE [facility]OSPITALROSOUTHWE[facility] SYSTEMGlucose [Mass/Vol]217 mg/pYGbqp23-674Qel [facility] SystemComment on above:Result Comment: Notified ALISTAIR KEY MDPerformed By: #### 83598 ####NURSING GLUCOSE TFQPTFY[address] [place] [address], [address]Lcwxuvn [Mass/Vol]217 mg/uCNnxq60 - 110 mg/dLTHE [facility]ITALROSOUTHWE[facility] SYSTEMInterpretation and review of laboratory resultsAbnormOhioHealth Shelby HospitalTHE [facility] SYSTEMGlucose [Mass/Vol]105 mg/rBUuheko98-076 The [facility] SystemComment on above:Performed By: #### 06863 ####NURSING GLUCOSE UPUBIPH[address] [place] [address], [address]Utpawzl [Mass/Vol]105 mg/dL68 - 110 mg/dLTHE [facility] SYSTEMInterpretation and review of laboratory resultsNormOhioHealth Shelby HospitalTHE [facility] SYSTEMGlucose [Mass/Vol]253 mg/cGJzet94-635Dkh [facility] SystemComment on above:Performed By: #### [id number] ####NURSING GLUCOSE DTYSABX74[address] [place] [address], [address]QYRQKFOGCrq 80-90-0354Megffrlrh [Mass/Vol]1.5 mg/dLLow1.9-2.7The [facility] SystemComment on above:Result Comment: Note updated reference ranges.Performed By: #### BILL JAUREGUI CH8 ####[facility] PATHOLOGY SFOXGDFNGU1353 [place], [address]Magnesium [Mass/Vol]1.5 mg/dLLow1.9 - 2.7 mg/dLTHE [facility] SYSTEMNo Panel Informationon 85-42-6980Mqcnqarngcrumb and review of laboratory results AbnormalTHE [facility] SYSTEMPHOSPHORUSon 07-07-2023 Phosphate [Mass/Vol]3.4 mg/dLNormal2.5-5.0The [facility] SystemComment on above:Result Comment: Note updated reference ranges.Performed By: #### BILL JAUREGUI CH8 ####[facility] PATHOLOGY ADLRICXOKD7248 [place], Interpretation and review of laboratory resultsNoFisher-Titus Medical Center Phosphate [Mass/Vol]3.4 mg/dL2.5 - 5.0 mg/dLTHE [facility] SYSTEMProgress Notes on 86-33-1018Rsnbermzuvfrz Authentication Interface Message TextNoMemorial Hospital SystemTranscription Authentication Interface Message TextNoMemorial Hospital SystemBASIC METABOLIC PANELon 32-21-0007Blyum gap [Moles/Vol]11 mmol/WRhugcc61-63Jhc [facility] SystemComment on above:Performed By: #### RADHIKA, PHOS, MG ####[facility] PATHOLOGY VIDHKJVYDA1764 [place], Calcium [Mass/Vol]8.4 mg/dLLow8.6-10.3The [facility] SystemComment on above:Performed By: #### RADHIKA, PHOS, MG ####[facility] PATHOLOGY FKLQCCERTS6168 [place], [address]Xkdjrhsf [Moles/Vol]108 mmol/LHigh 98-107The [facility] SystemComment on above:Performed By: #### RADHIKA, PHOS, MG ####[facility] PATHOLOGY JLJISLFTGH4374 [place], [address]WM9 [Moles/Vol]26 mmol/OYbcmok17-49Rkd [facility] SystemComment on above:Performed By: #### RADHIKA, PHOS, MG ####[facility] PATHOLOGY IRCZQGQRWH1442 [place], [address]Ajprfmqbtv [Mass/Vol]0.49 mg/dLLow0.60-1.20The [facility] SystemComment on above:Performed By: #### RADHIKA, PHOS, MG ####[facility] PATHOLOGY GEMSXCZQCX[address] [place] [address], [address]RIOPMHXVQ GFR (CKD-EPI)110 mL/min/1.73sqmNormal>=60The [facility] SystemComment on above: Result Comment: 2020 CKD EPI Equation using Creatinine without RaceComment: Estimated glomerular filtration rate (eGFR) is calculated without a race coefficient. Values should be interpreted in the context of the patient's full clinical presentation.Reference:1. Cooper C, Liv M, Karyn DC, et al.. A Unifying Approach for GFR Estimation: Recommendations of the NKF-ASN Task Force on Reassessing the Inclusion of Race in Diagnosing Kidney Disease. [place] Journal of Kidney Diseases 202;79(2):268-88.e1.2. N Engl J Med 1 Vol. 385 Issue 19 Pages 2331-0947Performed By: #### BILL GARRIDO MG ####[facility] PATHOLOGY KHRILRDSGC2340 [place], [address]Ntlnmjh [Mass/Vol]141 mg/jCFdil22-469Goq [facility] SystemComment on above:Performed By: #### BILL GARRIDO MG ####[facility] PATHOLOGY VDNIMQWMOF9443 [place], [address]Potassium [Moles/Vol]4.3 mmol/LNormal3.5-5.0The [facility] Comment on above:Performed By: #### BILL GARRIDO MG ####[facility] PATHOLOGY DHHAAJGZXM6985 [place], [address]Frowjt [Moles/Vol]141 mmol/BWzpkbe636-781Eay [facility] SystemComment on above:Performed By: #### BILL GARRIDO MG ####[facility] PATHOLOGY GVPQWLLLUI5170 [place], [address]Ehjh nitrogen [Mass/Vol]10 mg/dLNormal7-25The [facility] Comment on above:Performed By: #### BILL GARRIDO MG ####[facility] PATHOLOGY ZTNEQNUURB5797 [place], [address]Etzcv metabolic 2000 panelon 15-28-0726Hnpfr gap [Moles/Vol]11 mmol/L10 - 20THE [facility] Calcium [Mass/Vol]8.4 mg/dLLow8.6 - 10.3 mg/dLTHE [facility] SYSTEMChloride [Moles/Vol]108 mmol/LHigh98 - 107 mmol/LTHE [facility] SYSTEMCO2 [Moles/Vol]26 mmol/L21 - 31 mmol/LTHE [facility] SYSTEMCreatinine [Mass/Vol]0.49 mg/dLLow0.60 - 1.20 mg/dLTHE [facility]ALTH SYSTEMGFR/1.73 sq M.predicted CKD-EPI (S/P/Bld) [Vol rate/Area]110- PINFTHE METRO[facility]ALTH SYSTEMGlucose [Mass/Vol]141 mg/oGPsrx59 - 109 mg/dLTHE [facility] SYSTEMPotassium [Moles/Vol]4.3 mmol/L3.5 - 5.0 mmol/L THE [facility] SYSTEMSodium [Moles/Vol]141 mmol/L136 - 145 mmol/LTHE [facility] SYSTEMUrea nitrogen [Mass/Vol]10 mg/dL7 - 25 mg/dLTHE [facility] SYSTEMCBC panel Auto (Bld)on 90-23-5106Clvzzqifdro distribution width (RBC) [Ratio]18.9 %High11.5 - 14.5 %THE [facility] SYSTEMHematocrit (Bld) [Volume fraction]27.9 %Low36.0 - 46.0 %THE [facility] SYSTEMHemoglobin (Bld) [Mass/Vol] 8.9 g/dLLow12.0 - 15.0 g/dLTHE [facility] SYSTEMInterpretation and review of laboratory resultsAbnormalTHE METROHEALTH SYSTEMMCH (RBC) [Entitic mass]28.2 pg 26.0 - 34.0 pgTHE METROHEALTH SYSTEMMCHC (RBC) [Mass/Vol]32.1 g/dL32.0 - 35.9 g/dLTHE METRO[facility]ALTH SYSTEMMCV (RBC) [Entitic vol]88 fL80 - 100 fLTHE METRO[facility]ALTH SYSTEMPlatelet mean volume (Bld) [Entitic vol]7.6 fL7.5 - 11.2 fLTHE [facility]RO[facility]ALTH SYSTEMPlatelets (Bld) [#/Vol]671 10*3/wTMdti331 - 400 K/uLTHE [facility] RBC (Bld) [#/Vol]3.17 10*6/uLLowTHE METROHEALTH SYSTEMWBC (Bld) [#/Vol]9.4 10*3/uL4.5 - 11.5 K/uLTHE [facility]RO[facility]ALTH SYSTEMTHE [facility]RO[facility]ALTH SYSTEMCOMPLETE BLOOD COUNTon 17-50-0977Seontvirsgf distribution width (RBC) [Ratio]18.9 %High 11.5-14.5The [facility] SystemComment on above:Performed By: #### CBC ####[facility] PATHOLOGY ARHPBKZCUH[address] [place] [address], [address]Aaqqkxwssn (Bld) [Volume fraction]27.9 %Low36.0-46.0The [facility] SystemComment on above: Performed By: #### CBC ####[facility] PATHOLOGY HTYAVNAOLK[address] [place] [address], [address]Obsenjaneq (Bld) [Mass/Vol]8.9 g/dLLow12.0-15.0The [facility] SystemComment on above:Performed By: #### CBC ####[facility] PATHOLOGY GKPUQAAWCQ[address] [place] [address], [address]DYP (RBC) [Entitic mass]28.2 oiZbdxpx47.0-34.0The [facility] SystemComment on above:Performed By: #### CBC ####[facility] PATHOLOGY YUAHEKXBZI[address] [place] [address], [address]BUSS (RBC) [Mass/Vol]32.1 g/eDQqohqj83.0-35.9The [facility] System Comment on above:Performed By: #### CBC ####[facility] PATHOLOGY GORQNHPLZY[address] [place] [address], [address]WMF (RBC) [Entitic vol]88 fLNormal 80-100The [facility] SystemComment on above:Performed By: #### CBC ####[facility] PATHOLOGY LWCZJBNMTJ[address] [place] [address], [address]Dsuxteyf mean volume (Bld) [Entitic vol]7.6 fLNormal7.5-11.2The [facility] SystemComment on above:Performed By: #### CBC ####[facility] PATHOLOGY [id number] [place] [address], [address]Koydmfvfe (Bld) [#/Vol]671 10*3/vANost583-269Qfa [facility] SystemComment on above:Performed By: #### CBC ####S PATHOLOGY [id number] [place], [address]UQR (Bld) [#/Vol]3.17 10*6/uLLow4.00-5.20The [facility] SystemComment on above:Performed By: #### CBC ####S PATHOLOGY [id number] [place], [address]TOJ (Bld) [#/Vol]9.4 10*3/uLNormal4.5-11.5The [facility] SystemComment on above: Performed By: #### CBC ####[facility] PATHOLOGY [id number] [place] [address], [phone] Plan Noteon [id number] Authentication Interface Message TextNoMemorial Hospital SystemConsultson [phone] Authentication Interface Message TextNoMemorial [facility] SystemTranscription Authentication Interface Message TextNoMemorial [facility] SystemTranscription Authentication Interface Message TextNoAt[facility] HospitalroMet[facility] SystemGLUCOSE, FINGERSTICK-IN OFFICEon [id number] [Mass/Vol] 253 mg/nKShou59 - 110 mg/dLTHE METROHEALTH SYSTEMInterpretation and review of laboratory resultsAbnormHealthSouth Medical CenterROHEALTH SYSTEMTHE METROHEALTH SYSTEMGlucose [Mass/Vol]281 mg/hFFopf78-656Xeq [facility]ro[facility] SystemComment on above:Performed By: #### [id number] ####NURSING GLUCOSE GQNIORN[address] [place] [address], [address]95[address]Uvwogay [Mass/Vol]281 mg/hKLmvb71 - 110 mg/dLTHE [facility] Interpretation and review of laboratory resultsAbnoFrye Regional Medical Center Alexander CampusROHEALTH SYSTEMTHE [facility] SYSTEMGlucose [Mass/Vol]296 mg/bPJhrc45-381Ytm [facility] Comment on above:Performed By: #### [id number] ####NURSING GLUCOSE MVXJZBO[address] [place] [address], 08372Sjbhtoo [Mass/Vol]296 mg/gYOlcr38 - 110 mg/dLTHE [facility] SYSTEMInterpretation and review of laboratory results AbnormalTHE [facility]ALTH SYSTEMTHE [facility]ALTH SYSTEMGlucose [Mass/Vol]72 mg/dL Bmvosh05-020Cza [facility] SystemComment on above:Performed By: #### [id number] ####NURSING GLUCOSE ZQSUDNB[address] [place] [address], 970[address]Qnygiuk [Mass/Vol]72 mg/dL68 - 110 mg/dLTHE [facility] SYSTEMInterpretation and review of laboratory resultsNoFisher-Titus Medical CenterTHE [facility] SYSTEMMAGNESIUM on 06-63-8522Sdmqoqwkt [Mass/Vol]1.7 mg/dLLow1.9-2.7The [facility] System Comment on above:Result Comment: Note updated reference ranges.Performed By: #### CH8, MG BILL ####[facility] GZCUTVQULT[address] [place] [address], [address]Zidfhknnn [Mass/Vol]1.7 mg/dLLow1.9 - 2.7 mg/dLTHE [facility] SYSTEMNo Panel Informationon 90-17-3995Thujsvhnzuvxeo and review of laboratory resultsAbnoSumma Health [facility] Campus SYSTEMPHOSPHORUSon 48-18-0961Ofyfucagq [Mass/Vol]2.9 mg/dLNormal2.5-5.0The [facility] System Comment on above:Result Comment: Note updated reference ranges.Performed By: #### CH8, MG BILL ####[facility] PATHOLOG[facility] XBCFBKVXDZ[address] [place] [address], [address]Foanwqwsiqquti and review of laboratory resultsNormMansfield Hospital SYSTEMPhosphate [Mass/Vol]2.9 mg/dL2.5 - 5.0 mg/dLTHE [facility] SYSTEMProgress Noteson 56-15-0913Yfellnxdplxkw Authentication Interface Message TextNoMemorial Hospital SystemTranscription Authentication Interface Message TextNoMemorial Hospital SystemTranscription Authentication Interface Message TextNoMemorial Hospital SystemTranscription Authentication Interface Message TextNoMemorial Hospital SystemANTI FXA-LMW HEPARINon 05-09-2719FKCU FXA-LMW HEPARIN ASSAY0.36 IU/mLNormalThe [facility] SystemComment on above:Order Comment: The recommended therapeutic range for treatment of thrombosis with Low Molecular Weight Heparin is 0.5 - 1.0 IU/mLThe recommended range for VTE prophylaxis with Low Molecular Weight Heparin is 0.2 - 0.4 IU/mL.Performed By: #### JOAN ####[facility] DUCOVEOIFN[address] [place] [address], [address]KHW Heparin Chromogenic method Qn (PPP)0.36IU/mLTHE [facility]OSPITALROSOUTHWEST [facility] SYSTEM THE [facility] HOSPITALROHEALTH SYSTEMTHE [facility] SYSTEMBASIC METABOLIC PANELon 07-05-2023 Anion gap [Moles/Vol]8 mmol/TCpu26-83Hkn [facility] SystemComment on above: Performed By: #### BILL JAUREGUI CH8 ####[facility] NBGXYSTVNO5516 [place], [address]Tvnzmyr [Mass/Vol]7.8 mg/dLLow8.6-10.3The [facility] SystemComment on above:Performed By: #### BILL JAUREGUI CH8 ####[facility] PATH[facility] MFNQELLXMF[address] [place] [address], [address]Fndwfeuv [Moles/Vol]111 mmol/JDdki52-166Sow [facility] SystemComment on above:Performed By: #### BILL JAUREGUI CH8 ####[facility] PATHOLOG[facility] ZGUIBFADHL0012 [place], [address]SL7 [Moles/Vol]28 mmol/WMvdybt88-68Ntz [facility] SystemComment on above:Performed By: #### BILL JAUREGUI CH8 ####[facility] PATHOLOG[facility] AMBDMTYPJM3984 [place], [address]Cxpydpahxj [Mass/Vol] 0.40 mg/dLLow0.60-1.20The [facility] SystemComment on above:Performed By: #### BILL JAUREGUI CH8 ####[facility] PATHOLOG[facility] LHAWBGHNEO[address] [place] [address], [address]ZLJCSUSHW GFR (CKD-EPI)115 mL/min/1.73sqmNormal>=60The [facility] SystemComment on above:Result Comment: 2020 CKD EPI Equation using Creatinine without RaceComment: Estimated glomerular filtration rate (eGFR) is calculated without a race coefficient. Values should be interpreted in the context of the patient's full clinical presentation.Reference:1. Cooper C, Liv M, Karyn DC, et al.. A Unifying Approach for GFR Estimation: Recommendations of the NKF-ASN Task Force on Reassessing the Inclusion of Race in Diagnosing Kidney Disease. [place] Journal of Kidney Diseases 202;79(2):268-88.e1.2. N Engl J Med 1 Vol. 385 Issue 19 Pages 3569-7830Performed By: #### BILL JAUREGUI CH8 ####[facility] MSLYFEWCED2495 [place], [address]Rwniqvc [Mass/Vol]68 mg/yFWta54-487Ouc [facility] SystemComment on above:Performed By: #### BILL JAUREGUI CH8 ####[facility] ENSRFHOULT0729 [place], [address]Mimyobhwb [Moles/Vol]4.2 mmol/LNormal3.5-5.0The [facility] Comment on above:Performed By: #### BILL JAUREGUI CH8 ####[facility] PATHOLOG[facility] GAUPBCWQZX1369 [place], [address]Iwyywm [Moles/Vol]143 mmol/KTacyay366-250Ndq [facility] SystemComment on above:Performed By: #### BILL JAUREGUI CH8 ####[facility]HSangeetha PATHOLOGY THNFKMLTXQ8420 [place], [place], [address]Urea nitrogen [Mass/Vol]11 mg/dLNormal7-25The [facility] SystemComment on above:Performed By: #### BILL JAUREGUI CH8 ####[facility] PATHOLOGY SJAPRLGLJS3155 [place], [address]Lzwri metabolic 2000 panelon 99-41-4785Hcxtz gap [Moles/Vol]8 mmol/LLow10 - 20THE [facility] SYSTEMCalcium [Mass/Vol]7.8 mg/dLLow8.6 - 10.3 mg/dLTHE [facility] SYSTEMChloride [Moles/Vol] 111 mmol/LHigh98 - 107 mmol/LTHE [facility] SYSTEMCO2 [Moles/Vol]28 mmol/L21 - 31 mmol/LTHE [facility] SYSTEMCreatinine [Mass/Vol]0.40 mg/dLLow0.60 - 1.20 mg/dLTHE [facility] SYSTEMGFR/1.73 sq M.predicted CKD-EPI (S/P/Bld) [Vol rate/Area]115- PINFTHE [facility] SYSTEMGlucose [Mass/Vol]68 mg/dLLow74 - 109 mg/dLTHE [facility] SYSTEMPotassium [Moles/Vol]4.2 mmol/L3.5 - 5.0 mmol/LTHE [facility] SYSTEMSodium [Moles/Vol]143 mmol/L136 - 145 mmol/LTHE [facility] SYSTEMUrea nitrogen [Mass/Vol]11 mg/dL7 - 25 mg/dLTHE salgomedROMojeek SYSTEMCBC panel Auto (Bld)on 94-07-3397Hjoerkzikup distribution width (RBC) [Ratio]19.1 % High11.5 - 14.5 %THE [facility] [facility] Work Phone: Hematocrit (Bld) [Volume fraction]26.9 %Low36.0 - 46.0 %THE salgomedROMojeek SYSTEM Work Phone: Hemoglobin (Bld) [Mass/Vol]8.8 g/dLLow12.0 - 15.0 g/dL THE [facility] Work Phone: Interpretation and review of laboratory results AbnormalTHE [facility] [facility] Work Phone: MCH (RBC) [Entitic mass]28.7 pg26.0 - 34.0 pgTHE salgomedROMojeek SYSTEM Work Phone: MCHC (RBC) [Mass/Vol]32.8 g/dL32.0 - 35.9 g/dLTHE salgomedROMojeek SYSTEM Work Phone: MCV (RBC) [Entitic vol]87 fL80 - 100 fLT salgomedROMojeek SYSTEM Work Phone: Platelet mean volume (Bld) [Entitic vol]7.8 fL7.5 - 11.2 On license of [facility] salgomedROMojeek SYSTEM Work Phone: Platelets (Bld) [#/Vol]560 10*3/kFZzrw913 - 400 K/uL [facility] Work Phone: [phone] (Bld) [#/Vol]3.08 10*6/uLLowTHE salgomedROMojeek SYSTEM Work Phone: [phone] (Bld) [#/Vol]8.2 10*3/uL4.5 - 11.5 K/uLTHE salgomedROMojeek SYSTEM Work Phone: [phone] salgomedROMojeek SYSTEM Work Phone: [phone] distribution width (RBC) [Ratio]15.6 %High 11.5 - 14.5 %THE [facility]gomedROM[facility] SYSTEM Work Phone: [phone] (Bld) [Volume fraction]22.1 %Low36.0 - 46.0 %THE [facility] [facility] Work Phone: [phone] (Bld) [Mass/Vol]7.1 g/dLLow12.0 - 15.0 g/dL THE salgomedROM[facility] SYSTEM Work Phone: [phone] and review of laboratory results AbnormalTHE salgomedROMojeek SYSTEM Work Phone: MCH (RBC) [Entitic mass]29.4 pg26.0 - 34.0 pgTHE [facility] Work Phone: MCHC (RBC) [Mass/Vol]32.3 g/dL32.0 - 35.9 g/dLTHE salgomedROMojeek SYSTEM Work Phone: [phone] (RBC) [Entitic vol]91 fL80 - 100 fLTHE salgomedROHEALTH SYSTEM Work Phone: [phone] mean volume (Bld) [Entitic vol]7.8 fL7.5 - 11.2 fLTHE salgomedROHEALTH SYSTEM Work Phone: Platelets (Bld) [#/Vol]507 10*3/cYZtkg707 - 400 K/uL THE salgomedROHEALTH SYSTEM Work Phone: [phone] (Bld) [#/Vol]2.43 10*6/uLLowTHE [facility] Work Phone: WBC (Bld) [#/Vol]7.3 10*3/uL4.5 - 11.5 K/uLTHE METROMojeek SYSTEM Work Phone: THE [facility] SYSTEM Work Phone: CBC panel Auto (Bld)Ordered By: Molly Abbott on 58-80-9441Csptlzfanuh distribution width (RBC) [Ratio]15.6 %High11.5 - 14.5 %THE [facility] SYSTEMHematocrit (Bld) [Volume fraction]22.1 %Low36.0 - 46.0 %THE [facility] SYSTEMHemoglobin (Bld) [Mass/Vol]7.0 g/dLCritically low12.0 - 15.0 g/dLTHE [facility] SYSTEMInterpretation and review of laboratory results AbnormalTHE [facility]ALTH SYSTEMMCH (RBC) [Entitic mass]28.9 pg26.0 - 34.0 pgTHE [facility] SYSTEMMCHC (RBC) [Mass/Vol]31.7 g/dLLow32.0 - 35.9 g/dLTHE [facility]RO[facility]ALTH SYSTEMMCV (RBC) [Entitic vol]91 fL80 - 100 fLTHE [facility] Platelet mean volume (Bld) [Entitic vol]7.5 fL7.5 - 11.2 fLTHE [facility] SYSTEMPlatelets (Bld) [#/Vol]487 10*3/vCOcjn549 - 400 K/uLTHE [facility] RBC (Bld) [#/Vol]2.43 10*6/uLLowTHE [facility] SYSTEMWBC (Bld) [#/Vol]7.3 10*3/uL4.5 - 11.5 K/uLTHE [facility] SYSTEMTHE [facility]ALTH SYSTEMCOMPLETE BLOOD COUNTon 86-58-3951Bvwqhtictkk distribution width (RBC) [Ratio]19.1 %High 11.5-14.5The [facility] SystemComment on above:Performed By: #### CBC ####[facility] PATH[facility] KIBGUJALUH2978 [place], [address]Znuuchrpgj (Bld) [Volume fraction]26.9 %Low36.0-46.0The [facility] HospitalroHealth SystemComment on above: Performed By: #### CBC ####[facility] PATHOLOGY WXVMMBCYHE[address] [place] [address], [address]Mqvrnfptdr (Bld) [Mass/Vol]8.8 g/dLLow12.0-15.0The [facility] HospitalroHealth SystemComment on above:Performed By: #### CBC ####[facility] PATHOLOGY FATDAMLJYP[address] [place] [address], [address]WDP (RBC) [Entitic mass]28.7 hqOqcnls27.0-34.0The [facility] By [facility] HealthHealth SystemComment on above:Performed By: #### CBC ####[facility] PATHOLOGY YUKWGNHXGR[address] [place] [address], [address]RCLE (RBC) [Mass/Vol]32.8 g/jEVjgcpw27.0-35.9The [facility] System Comment on above:Performed By: #### CBC ####[facility] PATHOLOGY LCJFADLHIP[address] [place] [address], [address]RZR (RBC) [Entitic vol]87 fLNormal 80-100The [facility] SystemComment on above:Performed By: #### CBC ####[facility] PATHOLOGY WGFSHAAYMY[address] [place] [address], [address]Syzivpbl mean volume (Bld) [Entitic vol]7.8 fLNormal7.5-11.2The [facility] SystemComment on above:Performed By: #### CBC ####[facility] PATHOLOGY LLYJBSMXLV[address] [place] [address], [address]Hslghtonr (Bld) [#/Vol]560 10*3/hKLrzn679-695Xkq [facility] SystemComment on above:Performed By: #### CBC ####[facility] PATHOLOGY CCJCRZBLGE[address] [place] [address], [address]EYG (Bld) [#/Vol]3.08 10*6/uLLow4.00-5.20The [facility] SystemComment on above:Performed By: #### CBC ####[facility] PATHOLOGY RWZIOLCDPH[address] [place] [address], [address]GQN (Bld) [#/Vol]8.2 10*3/uLNormal4.5-11.5The [facility] By [facility] HealthHealth SystemComment on above: Performed By: #### CBC ####[facility] PATHOLOGY EPLVAIYBPO[address] [place] [address], [address]Pyxxjolpctm distribution width (RBC) [Ratio]15.6 % High11.5-14.5The [facility] By [facility] HealthHealth SystemComment on above:Performed By: #### CBC ####[facility] PATHOLOGY YAPCVDVTYE[address] [place] [address], Hematocrit (Bld) [Volume fraction]22.1 %Low36.0-46.0The [facility] Comment on above:Performed By: #### CBC ####[facility] PATHOLOGY WBHMIKBRUQ[address] [place] [address], [address]Hiiqnevkfl (Bld) [Mass/Vol]7.1 g/dLLow 12.0-15.0The [facility] SystemComment on above:Performed By: #### CBC ####[facility] PATHOLOGY EIVFLQGGYC[address] [place] [address], [address]FEE (RBC) [Entitic mass]29.4 wpGjxwin33.0-34.0The [facility] By [facility] Health[facility] SystemComment on above: Performed By: #### CBC ####[facility] PATHOLOGY JNPCMVVUHD[address] [place] [address], [address]YMBF (RBC) [Mass/Vol]32.3 g/qSUnkadd99.0-35.9The [facility] SystemComment on above:Performed By: #### CBC ####[facility] PATHOLOGY TABOUKBYKY9[address] [place] [address], [address]DHP (RBC) [Entitic vol] 91 dFXgyrxq40-873Yhu [facility] SystemComment on above:Performed By: #### CBC ####[facility] PATHOLOGY LCCCAAZPUU[address] [place] [address], Platelet mean volume (Bld) [Entitic vol]7.8 fLNormal7.5-11.2The [facility] Health[facility] SystemComment on above:Performed By: #### CBC ####[facility] PATHOLOGY MNZBURLYAX[address] [place] [address], [address]Xolkidvoe (Bld) [#/Vol]507 10*3/uLHigh 150-400The [facility] HospitalroHealth SystemComment on above:Performed By: #### CBC ####[facility] PATHOLOGY CKYMNSLIMW[address] [place] [address], [address]JSY (Bld) [#/Vol]2.43 10*6/uLLow4.00-5.20The [facility] HospitalroHealth SystemComment on above:Performed By: #### CBC ####[facility] PATHOLOGY HSOSWVYVLO[address] [place] [address], [address]RQF (Bld) [#/Vol]7.3 10*3/uLNormal4.5-11.5The [facility] Comment on above:Performed By: #### CBC ####[facility] PATHOLOGY WXVPQAEBFW[address] [place] [address], [address]Mccbkuhycrb distribution width (RBC) [Ratio]15.6 %High11.5-14.5The [facility] Health[facility] SystemComment on above:Performed By: #### CBC ####[facility] PATHOLOGY CKPZMBTZMC[address] [place] [address], [address]Dsjbdryqor (Bld) [Volume fraction]22.1 %Low36.0-46.0The [facility] HealthHealth SystemComment on above:Performed By: #### CBC ####[facility] PATHOLOGY FQGLRTKQSV[address] [place] [address], [address]Kznsjsdfro (Bld) [Mass/Vol]7.0 g/dL Critically low12.0-15.0The [facility] SystemComment on above:Performed By: #### CBC ####[facility] PATHOLOGY WENJICGJZA[address] [place] [address], MCH (RBC) [Entitic mass]28.9 clSdnijt93.0-34.0The [facility] Health[facility] SystemComment on above:Performed By: #### CBC ####[facility] PATHOLOGY ATNKSWRMWP54[address] [place] [address], [address]MXMO (RBC) [Mass/Vol]31.7 g/dLLow32.0-35.9The [facility] SystemComment on above:Performed By: #### CBC ####[facility] PATHOLOGY PVAYHPHYUL[address] [place] [address], [address]UHX (RBC) [Entitic vol] 91 gWHfffxd87-110Qlq [facility] SystemComment on above:Performed By: #### CBC ####[facility] PATHOLOGY NQTZUQWRVV[address] [place] [address], Platelet mean volume (Bld) [Entitic vol]7.5 fLNormal7.5-11.2The [facility] SystemComment on above:Performed By: #### CBC ####[facility] PATHOLOGY BCGEDWWKRI[address] [place] [address], [address]Xbalgpxgn (Bld) [#/Vol]487 10*3/uLHigh 150-400The [facility] SystemComment on above:Performed By: #### CBC ####[facility] PATHOLOGY RDZSRVZFGL[address] [place] [address], [address]VWV (Bld) [#/Vol]2.43 10*6/uLLow4.00-5.20The [facility] SystemComment on above:Performed By: #### CBC ####[facility] PATHOLOGY HFEPRYQBJR5[address] [place] [address], [address]OLB (Bld) [#/Vol]7.3 10*3/uLNormal4.5-11.5The [facility] Comment on above:Performed By: #### CBC ####[facility] PATHOLOGY BCOXYGKKGK[address] [place] [address], [address]WH HEAD W/O CONTRASTon 89-19-2065RW HEAD W/O CONTRASTNormalThe [facility] SystemCT Head WO contrastOrdered By: Alfonzo Hernandez on 01-52-7196WC FDO8236.5 (mGy.cm)[facility] Work Phone: cT SeriesHeadTHE [facility] Work Phone: cTDI VOL62.0 (mGy)[facility] Work Phone: PHANTOM TYPEIEC Head Dosimetry PhantomTHE [facility] Work Phone: [facility] Work Phone: cT Head WO contraston 89-19-8165NHKWEUWWTOQO [facility] Work Phone: Radiology Study observation (narrative)[facility] Work Phone: Care Plan Noteon 79-17-1321Coetpivztbpqh Authentication Interface Message TextNormalThe [facility] SystemConsultson 63-51-8340Pzqcstzetrbrt Authentication Interface Message TextNormalThe [facility] SystemGLUCOSE, FINGERSTICK-IN OFFICEon 44-86-8717Ymbttop [Mass/Vol] 247 mg/oXUcms72-051Nqi [facility] SystemComment on above:Performed By: #### [id number] ####NURSING GLUCOSE WMGEMIT1887 [place], [address] Glucose [Mass/Vol]250 mg/pTHkrt32-957Mlm [facility] SystemComment on above: Result Comment: Notified ALISTAIR KEY MDPerformed By: #### 35047 ####NURSING GLUCOSE WPXOGBI4601 [place], [place], [address]Iqfxylr [Mass/Vol]250 mg/dLHigh 68 - 110 mg/dLTHE [facility]ALTH SYSTEMGlucose [Mass/Vol]247 mg/fAXktp91 - 110 mg/dLTHE [facility] SYSTEMGlucose [Mass/Vol]250 mg/bRAhef85-245Uny [facility] SystemComment on above:Performed By: #### 69852 ####NURSING GLUCOSE PPOSKXK2570 [place], [place], [address]Urobwrq [Mass/Vol]249 mg/oXEaih95-616Wix [facility] SystemComment on above:Performed By: #### 19442 ####NURSING GLUCOSE BKUCTER2148 [place], [place], [address]Fucyrss [Mass/Vol]249 mg/dLHigh 68 - 110 mg/dLTHE [facility] SYSTEMGlucose [Mass/Vol]250 mg/eNWyiu88 - 110 mg/dLTHE [facility] SYSTEMGlucose [Mass/Vol]91 mg/oQHsqbuq92-678Dpq [facility] HospitalroMet[facility] SystemComment on above:Performed By: #### 35585 ####NURSING GLUCOSE LQIBKPG5958 [place], [place], [address]Swcxvzn [Mass/Vol]91 mg/dL68 - 110 mg/dL THE [facility] SYSTEMInterpretation and review of laboratory resultsNormMansfield Hospital SYSTEMTHE [facility] SYSTEMGlucose [Mass/Vol]95 mg/qZBrwwyk09-880 THE [facility]ITALROHEALTH SYSTEMComment on above:Performed By: #### 10583 ####NURSING GLUCOSE UKWDBSW6617 [place], [place], [address]Jduvogbxysmmuu and review of laboratory resultsNormMansfield Hospital SYSTEMTHE [facility] Glucose [Mass/Vol]103 mg/dHUybhzj69-215Cbv [facility] HospitalroMetrohealth [facility] SystemComment on above: Performed By: #### 63287 ####NURSING GLUCOSE JHJNQWF[address] [place] [address], [address]Vjcwsbd [Mass/Vol]71 mg/qEQulrsx72-871Rhh [facility] SystemComment on above:Performed By: #### 09615 ####NURSING GLUCOSE OPEVTNO[address] [place] [address], [address]Qanpvqt [Mass/Vol]103 mg/dL68 - 110 mg/dL THE [facility] SYSTEMInterpretation and review of laboratory resultsNormOhioHealth Shelby HospitalTHE [facility]OSPITALROSOUTHWE[facility] SYSTEMGlucose [Mass/Vol]71 mg/dL68 - 110 mg/dL THE [facility]ITALROHEALTH SYSTEMInterpretation and review of laboratory resultsNormOhioHealth Shelby HospitalTHE [facility]OS[facility]ITALROSOUTHWE[facility] SYSTEMLaboratory - Blood bankon 28-39-7848FYT and Rh group Nom (Bld)Blood group A Rh(D) positiveTHE [facility] HOSPITALROSOUTHWEST GENER[facility] SYSTEM MAGNESIUMon 67-35-5913Pwevmmwij [Mass/Vol]1.8 mg/dLLow1.9-2.7The [facility] SystemComment on above:Result Comment: Note updated reference ranges.Performed By: #### MG, PHOS, CH8 ####[facility] WDWFQAQFYS8046 [place], [address]Gimufuuhm [Mass/Vol]1.8 mg/dLLow1.9 - 2.7 mg/dLTHE [facility] SYSTEMNo Panel Informationon 95-79-4186Eaibkwqnanfsls and review of laboratory resultsAbnoFisher-Titus Medical CenterTHE [facility] SYSTEM Interpretation and review of laboratory resultsAbnoUC Medical Center SYSTEMTHE [facility] SYSTEMInterpretation and review of laboratory resultsAbNYU Langone Tisch Hospital SYSTEMTHE [facility] SYSTEMNo Panel InformationOrdered By: Oralia Moreira on 03-86-0797VVA [facility]OSPITALROSOUTHWEST GENER[facility] SYSTEMPHOSPHORUSon 01-39-1458Clyyeszae [Mass/Vol]3.6 mg/dLNormal2.5-5.0The [facility] SystemComment on above:Result Comment: Note updated reference ranges.Performed By: #### MG, PHOS, CH8 ####[facility] BUFQDEAQMH[address] [place] [address], Interpretation and review of laboratory resultsNoUC Medical Center SYSTEM Phosphate [Mass/Vol]3.6 mg/dL2.5 - 5.0 mg/dLTHE [facility] SYSTEMProgress Notes on 70-16-4083Aaicneoudgmrb Authentication Interface Message TextNoMemorial Hospital SystemTranscription Authentication Interface Message TextNoMemorial Hospital SystemTranscription Authentication Interface Message TextNoMemorial Hospital SystemTranscription Authentication Interface Message TextNoMemorial Hospital SystemTranscription Authentication Interface Message /LADARIUS Bauman notified of critical Hemoglobin value of 7.0. /LADARIUS Bauman read back critical results. New orders received.NormalThe Community Regional Medical CenterRED BLOOD CELL COMPONENTon [id number] ORDER ITEMProduct status info to followCatskill Regional Medical Center SystemComment on above:Performed By: #### RBO ####[facility] PATH[facility] RXTPBSFZBW[address] [place] [address], [address]II Order ItemProduct status info to followTHE [facility] SYSTEMTHE [facility]ERS HOSPITALRED BLOOD CELL UNIT STATUSon [id number] PRODUCT [id number] [facility] Comment on above:Performed By: #### RBU ####[facility] PATH[facility] ZQGWXPALCC5586 [place], [address]FOLIA PRODUCT DESCRIPTIONRed Blood CellsNoMemorial Hospital SystemComment on above:Performed By: #### RBU ####[facility] PATHOLOGY PKJRHJBXZS[address] [place] [address], [address]JFNVR PRODUCT STATUSTransfusedNormalThe [facility] SystemComment on above:Performed By: #### RBU ####[facility] PATHOLOGY BXXINCNXPO[address] [place] [address], [address]JBRMJ PRODUCT UNIT [id number] Memorial Hospital Comment on above:Performed By: #### RBU ####[facility] PATHOLOGY AMWJQVOTII[address] [place] [address], [address]QBBES PRODUCT UNIT [id number] Regional Medical Center SystemComment on above:Result Comment: A PosPerformed By: #### RBU ####[facility] PATHOLOGY TIXZHKJQGQ[address] [place] [address], CROSSMATCH INTERPRETATIONCompatible (E)NormalThe [facility] SystemComment on above:Performed By: #### RBU ####[facility] PATHOLOGY KKRZLPCQXB[address] [place] [address], [id number] AND SCREENon [id number] and Rh group Nom (Bld)Blood group A Rh(D) positiveNoOhio State University Wexner Medical CenterComment on above: Performed By: #### TS ####[facility] PATHOLOGY [id number] [place] [address], [id number] INTNegativeDunlap Memorial Hospital Comment on above:Performed By: #### TS ####[facility] PATHOLOGY [id number] [place] [address], [id number] group antibody screen QlNegative THE [facility]THE [facility] SYSTEMTreatment Plan Noteon 07-05-2023 Lapping Machine Set Up Operator Authentication Interface Message TextNoOhio State University [facility]xner Medical [facility] BASIC METABOLIC PANELon 34-21-5075Fulbx gap [Moles/Vol]7 mmol/BSsw08-96Cek [facility] SystemComment on above:Performed By: #### PHOS, MG, CH8 ####[facility] PATHOLOGY YAUOLRNIGS9266 [place], [address]Azsuozw [Mass/Vol]7.0 mg/dLLow8.6-10.3The [facility] SystemComment on above:Performed By: #### MG BILL, CH8 ####[facility] PATH[facility] GFEZYTJCNX8416 [place], [address]Vkbyvnyj [Moles/Vol]115 mmol/ZIgzk83-570Ezk [facility] SystemComment on above:Performed By: #### MG BILL, CH8 ####[facility] PATHOLOGY CJKRUUOTFF4737 [place], [address]AB5 [Moles/Vol]23 mmol/ZTrjhyi42-76Hbu [facility] SystemComment on above:Performed By: #### MG BILL, CH8 ####[facility] PATHOLOGY FQRLAYMNRM4864 [place], [address]Kfnrwnswku [Mass/Vol]0.39 mg/dLLow0.60-1.20The [facility] SystemComment on above:Performed By: #### MG BILL, CH8 ####[facility] PATHOLOGY XBXHMDJRMY8659 [place], [address]JEYUXYPYG GFR (CKD-EPI)116 mL/min/1.73sqmNormal>=60The [facility] SystemComment on above: Result Comment: 2020 CKD EPI Equation using Creatinine without RaceComment: Estimated glomerular filtration rate (eGFR) is calculated without a race coefficient. Values should be interpreted in the context of the patient's full clinical presentation.Reference:1. Cooper C, Liv M, Karyn VILCHIS, et al.. A Unifying Approach for GFR Estimation: Recommendations of the NKF-ASN Task Force on Reassessing the Inclusion of Race in Diagnosing Kidney Disease. Thai Journal of Kidney Diseases 2021;79(2):268-88.e1.2. N Engl J Med 1 Vol. 385 Issue 19 Pages 3257-1046Performed By: #### MG BILL, CH8 ####[facility] PATHOLOGY RVQKQSVDFL1780 [place], [address]Adxibdh [Mass/Vol]115 mg/wGHjed84-346Iuf [facility] SystemComment on above:Performed By: #### MG BILL, CH8 ####[facility] PATHOLOGY PRDMGXAMEM3242 [place], [place], [address]Potassium [Moles/Vol]3.8 mmol/LNormal3.5-5.0The [facility] Comment on above:Performed By: #### MG BILL, HUBER8 ####[facility] PATHOLOGY FGEZDZTWFL1855 [place], [address]Lenmhk [Moles/Vol]141 mmol/LEksqkt062-256Ben [facility] SystemComment on above:Performed By: #### MG BILL, CH8 ####[facility] PATHOLOGY UVNHWBRJTI8345 [place], [address]Qfqx nitrogen [Mass/Vol]10 mg/dLNormal7-25The [facility]ro[facility] System Comment on above:Performed By: #### MG BILL, HUBER8 ####[facility] PATHOLOGY NVDQUEJHQW[address] [place] [address], [address]Uwbht metabolic 2000 panelon 92-19-7880Jjacl gap [Moles/Vol]7 mmol/LLow10 - 20[facility] Work Phone: Calcium [Mass/Vol]7.0 mg/dLLow8.6 - 10.3 mg/dLTHE [facility] Work Phone: Chloride [Moles/Vol]115 mmol/LHigh98 - 107 mmol/LTHE [facility] Work Phone: CO2 [Moles/Vol]23 mmol/L21 - 31 mmol/LTHE [facility] Work Phone: Creatinine [Mass/Vol]0.39 mg/dLLow0.60 - 1.20 mg/dLTHE [facility] Work Phone: GFR/1.73 sq M.predicted CKD-EPI (S/P/Bld) [Vol rate/Area]116- PINFTHE [facility] Work Phone: Glucose [Mass/Vol]115 mg/jEIecx44 - 109 mg/dLTHE [facility] Work Phone: Interpretation and review of laboratory results AbnormalTHE [facility] Work Phone: Potassium [Moles/Vol]3.8 mmol/L3.5 - 5.0 mmol/LTHE [facility] Work Phone: Sodium [Moles/Vol]141 mmol/L136 - 145 mmol/LTHE [facility] Work Phone: Urea nitrogen [Mass/Vol]10 mg/dL7 - 25 mg/dLTHE [facility] Work Phone: [facility] Work Phone: CBC panel Auto (Bld)Ordered By: Clare Currie on 90-30-9563Ijjebnhixix distribution width (RBC) [Ratio][facility] Hematocrit (Bld) [Volume fraction][facility] SYSTEMHemoglobin (Bld) [Mass/Vol][facility] SYSTEMMCH (RBC) [Entitic mass][facility] MCHC (RBC) [Mass/Vol][facility] SYSTEMMCV (RBC) [Entitic vol][facility] SYSTEMPlatelet mean volume (Bld) [Entitic vol][facility] Platelets (Bld) [#/Vol][facility] SYSTEMRBC (Bld) [#/Vol][facility] SYSTEMWBC (Bld) [#/Vol][facility] SYSTEMTHE [facility]ALTH SYSTEMCBC panel Auto (Bld)on 35-09-3422Jvklgmplhbu distribution width (RBC) [Ratio]15.9 %High 11.5 - 14.5 %[facility] Work Phone: Hematocrit (Bld) [Volume fraction]28.1 %Low36.0 - 46.0 %[facility] Work Phone: Hemoglobin (Bld) [Mass/Vol]9.1 g/dLLow12.0 - 15.0 g/dL [facility] Work Phone: Interpretation and review of laboratory results AbnormalTHE [employer] [facility] Work Phone: [phone] (RBC) [Entitic mass]29.9 pg26.0 - 34.0 pgTHE [employer] [facility] Work Phone: MCHC (RBC) [Mass/Vol]32.3 g/dL32.0 - 35.9 g/dLTHE [employer] [facility] Work Phone: MCV (RBC) [Entitic vol]92 fL80 - 100 fLTHE [employer] [facility] Work Phone: [phone] mean volume (Bld) [Entitic vol]8.0 fL7.5 - 11.2 fLTHE [facility] [facility] Work Phone: Platelets (Bld) [#/Vol]503 10*3/kGHopk024 - 400 K/uL [facility] Work Phone: [phone] (Bld) [#/Vol]3.05 10*6/uLLowTHE [facility] [facility] Work Phone: WBC (Bld) [#/Vol]10.3 10*3/uL4.5 - 11.5 K/uLTHE [facility] Work Phone: THE [employer] Work Phone: COMPLETE BLOOD COUNTon 98-10-1845Ufmzipnogbg distribution width (RBC) [Ratio]15.9 %High11.5-14.5The [employer] SystemComment on above:Performed By: #### CBC ####[facility] PATHOLOGY NMNHIGMWSD9128 [place], [address]Jefhvowvza (Bld) [Volume fraction]28.1 %Low 36.0-46.0The [employer] SystemComment on above:Performed By: #### CBC ####[facility] PATHOLOGY VRSLQXGRWF0892 [place], [address]Twzwlwfbpk (Bld) [Mass/Vol]9.1 g/dLLow12.0-15.0The [facility] HospitalAxel Technologies SystemComment on above: Performed By: #### CBC ####[facility] PATHOLOGY RQELUTLRXP4813 [place], [address]WEN (RBC) [Entitic mass]29.9 ltFhchcl00.0-34.0The [facility]ro[facility] SystemComment on above:Performed By: #### CBC ####[facility] PATHOLOGY TIOJORORRJ5903 [place], [address]XKRS (RBC) [Mass/Vol] 32.3 g/uPSpfhfa91.0-35.9The [facility]ro[facility] SystemComment on above:Performed By: #### CBC ####[facility] PATHOLOGY MZOIBQUYVP6560 [place], [address]JYQ (RBC) [Entitic vol]92 zXHmgzql26-513Qrr [facility]ro[facility] SystemComment on above:Performed By: #### CBC ####[facility] PATHOLOGY RVXSSCLVGH[address] [place] [address], [address]Atokizml mean volume (Bld) [Entitic vol]8.0 fL Normal7.5-11.2The [facility]roHealth SystemComment on above:Performed By: #### CBC ####[facility] PATHOLOGY GSJOZVRIOH[address] [place] [address], Platelets (Bld) [#/Vol]503 10*3/qEInxj179-766Sev [facility] By [facility] SystemComment on above:Performed By: #### CBC ####[facility] PATHOLOGY CVEDQKNVPF[address] [place] [address], [address]NXO (Bld) [#/Vol]3.05 10*6/uLLow4.00-5.20The [facility]ro[facility] SystemComment on above:Performed By: #### CBC ####[facility] PATHOLOGY LMJAUGSTBR[address] [place] [address], [address]NNS (Bld) [#/Vol]10.3 10*3/uLNormal4.5-11.5The [facility]ro[facility] SystemComment on above:Performed By: #### CBC ####[facility] PATHOLOGY IFUVJXAPFH[address] [place] [address], EMBAbnkqv63.0-46.0The [facility] HospitalroHealth SystemComment on above:Result Comment: Contaminated,please resubmit.This is a corrected result. Previous result on 07/04/2023 at [facility] EDT was 20.7 %Performed By: #### CBC ####[facility] PATHOLOGY RTHIZSSWEC[address] [place] [address], [address]LZHBjrmko22.0-15.0The [facility] By [facility] SystemComment on above:Result Comment: Contaminated,please resubmit.This is a corrected result. Previous result on 07/04/2023 at [facility] EDT was 6.8 g/dLPerformed By: #### CBC ####S PATHOLOGY QQYMAJVLPT[address] [place] [address], [address]TNLKaeuoz09.0-34.0The [facility] By [facility] SystemComment on above:Result Comment: Contaminated,please resubmit.This is a corrected result. Previous result on 07/04/2023 at [facility] EDT was 30.1 pgPerformed By: #### CBC ####S PATHOLOGY ZRBTMAZZBS[address] [place] [address], [address]ONMV Danecx07.0-35.9The [facility] By [facility] SystemComment on above:Result Comment: Contaminated,please resubmit.This is a corrected result. Previous result on 07/04/2023 at [facility] EDT was 32.8 g/dLPerformed By: #### CBC ####[facility] PATHOLOGY TLDFVXRUEN[address] [place] [address], [address]KDXGaclsz07-995Fxo [facility]ro[facility] SystemComment on above:Result Comment: Contaminated,please resubmit.This is a corrected result. Previous result on 07/04/2023 at [facility] EDT was 92 fLPerformed By: #### CBC ####[facility] PATHOLOGY ASHCLXMEQB[address] [place] [address], [address]ABAIsnqla1.5-11.2The [facility] SystemComment on above:Result Comment: Contaminated,please resubmit.This is a corrected result. Previous result on 07/04/2023 at [facility] EDT was 8.3 fLPerformed By: #### CBC ####[facility] PATHOLOGY WNNRKARWOB[address] [place] [address], [address]AZO Tdlfwg610-709Spy [facility] SystemComment on above:Result Comment: Contaminated,please resubmit.This is a corrected result. Previous result on 07/04/2023 at 05 EDT was 381 K/uLPerformed By: #### CBC ####S PATHOLOGY GJBCAAMODT[address] [place] [address], [address]IAKWknzxd7.00-5.20The [facility] SystemComment on above:Result Comment: Contaminated,please resubmit.This is a corrected result. Previous result on 07/04/2023 at 05 EDT was 2.25 M/uLPerformed By: #### CBC ####S PATHOLOGY QNBRDXDKCI5166[address] [place] [address], [address]WCB-JTAzuqfz95.5-14.5The [facility] Comment on above:Result Comment: Contaminated,please resubmit.This is a corrected result. Previous result on 07/04/2023 at 05 EDT was 15.5 %Performed By: #### CBC ####S PATHOLOGY OVLDYCTRLD6[address] [place] [address], [address]EWXTjwikm4.5-11.5The [facility] SystemComment on above:Result Comment: Contaminated,please resubmit.This is a corrected result. Previous result on 07/04/2023 at 05 EDT was 7.1 K/uLPerformed By: #### CBC ####S PATHOLOGY VUWJAOHXOV[address] [place] [address], [address]Lqcsdnvvgt 20-13-9457Rojlxtrrkfhaa Authentication Interface Message TextNormKettering Health [facility] SystemTranscription Authentication Interface Message TextNormKettering Health [facility] SystemTranscription Authentication Interface Message TextNormKettering Health Behavioral Medical Center SystemGLUCOSE, FINGERSTICK-IN OFFICEon 76-97-5822Oeqzapl [Mass/Vol] 129 mg/oCXrym30-253Jct [facility] SystemComment on above:Performed By: #### [id number] ####NURSING GLUCOSE OONLTGH[address] [place] [address], [address] Glucose [Mass/Vol]129 mg/dJJxyz66 - 110 mg/dLTHE [facility] SYSTEM Interpretation and review of laboratory resultsAbAultman HospitalROSOUTHWEST GENER[facility] SYSTEMGlucose [Mass/Vol]308 mg/bIVlxd12-882Iat [facility] System Comment on above:Performed By: #### 62490 ####NURSING GLUCOSE ZZIYZFA[address] [place] [address], [address]Yjieuam [Mass/Vol]308 mg/tERujj97 - 110 mg/dLTHE [facility]OSPITALROSOUTHWE[facility] SYSTEMInterpretation and review of laboratory results AbnormalTHE [facility] SYSTEMTHE [facility] SYSTEMGlucose [Mass/Vol]175 mg/dL Uewg31-377Jwk [facility] SystemComment on above:Performed By: #### 87022 ####NURSING GLUCOSE GJTJEXD[address] [place] [address], [address]Ciacqho [Mass/Vol]175 mg/vSUtvd45 - 110 mg/dLTHE [facility] SYSTEMInterpretation and review of laboratory resultsAbUniversity [facility]als Beach[facility] SYSTEM Glucose [Mass/Vol]155 mg/eVLfyu46-817Czd [facility] SystemComment on above: Performed By: #### 68546 ####NURSING GLUCOSE KZLJRQJ5[address] [place] [address], [address]Kcjczyg [Mass/Vol]155 mg/jVDryk80 - 110 mg/dLTHE [facility] SYSTEMInterpretation and review of laboratory resultsAbGlen Cove HospitalMAGNESIUMon 82-54-8268Qvzkozcqn [Mass/Vol]1.7 mg/dLLow1.9-2.7The [facility] SystemComment on above:Result Comment: Note updated reference ranges.Performed By: #### PHOS, MG, CH8 ####[facility] PATHOLOGY MFXOUINQIX16[address] [place] [address], [address]Qxtsaqang [Mass/Vol]1.7 mg/dLLow1.9 - 2.7 mg/dLTHE [facility]OSPITALNo Panel Information on 75-27-6671Blqyvdegnykffh and review of laboratory resultsAbUniversity Hospitals Beach[facility] SYSTEMPHOSPHORUSon 20-26-7348Jzcnhtlmi [Mass/Vol]2.4 mg/dLLow2.5-5.0The [facility] SystemComment on above:Result Comment: Note updated reference ranges.Performed By: #### MG BILL CH8 ####[facility] PATHOLOGY NPOLOFHLVI[address] [place] [address], [address]Dxcvrrhuk [Mass/Vol]2.4 mg/dLLow2.5 - 5.0 mg/dLTHE [facility] SYSTEMProgress Noteson 49-16-5606Skkqopbxazzso Authentication Interface Message TextNoMemorial [facility] SystemTranscription Authentication Interface Message TextNoMemorial Hospital SystemTranscription Authentication Interface Message TextNoMemorial Hospital SystemTranscription Authentication Interface Message Rickey Ambriz notified of critical Hemoglobin value of 6.8. LADARIUS Ambriz read back critical results. New orders received. Redraw CBCNoOhio State University Wexner Medical CenterRED BLOOD CELL COMPONENTon [id number] ORDER ITEMProduct status info to followCatskill Regional Medical Center SystemComment on above:Performed By: #### RBO ####[facility] PATHOLOGY FJRDINDOSH[address] [place] [address], [address]PH Order ItemProduct status info to followTHE [facility] SYSTEMTHE [facility] SYSTEMBASIC METABOLIC PANELon 13-13-9915Ondwr gap [Moles/Vol]9 mmol/FYhg64-30Uop [facility] SystemComment on above:Performed By: #### CH8 ####[facility] PATHOLOGY NYCOUHMHWP[address] [place] [address], [address]Tusivjj [Mass/Vol]7.7 mg/dLLow8.6-10.3The [facility] SystemComment on above:Performed By: #### CH8 ####[facility] PATHOLOGY OGGRQTBVEK6686 [place], [address]Eyuzdqaz [Moles/Vol]107 mmol/SHleamn90-313Nca [facility] By [facility] SystemComment on above:Performed By: #### CH8 ####[facility] PATHOLOGY EOHNXHVZMJ5692 [place], [address]FA6 [Moles/Vol]26 mmol/AZjduxs93-89Bsi [facility] Oper[facility] By [facility] SystemComment on above:Performed By: #### CH8 ####S PATHOLOGY FZNOECNAQS7041 [place], Creatinine [Mass/Vol]0.51 mg/dLLow0.60-1.20The [facility] By [facility] SystemComment on above:Performed By: #### CH8 ####[facility] PATHOLOGY QJENCXXCTH7317 [place], [address]CQMTEMHUM GFR (CKD-EPI)109 mL/min/1.73sqmNormal >=60The [facility] HospitalroHealth SystemComment on above:Result Comment: 2020 CKD EPI Equation using Creatinine without RaceComment: Estimated glomerular filtration rate (eGFR) is calculated without a race coefficient. Values should be interpreted in the context of the patient's full clinical presentation.Reference:1. Cooper C, Liv M, Karyn VILCHIS, et al.. A Unifying Approach for GFR Estimation: Recommendations of the NKF-ASN Task Force on Reassessing the Inclusion of Race in Diagnosing Kidney Disease. [place] Journal of Kidney Diseases 2021;79(2):26 8-88.e1.2. N Engl J Med 2020 Vol. 385 Issue 19 Pages 6370-7565Performed By: #### CH8 ####[facility] PATHOLOGY LYVXUAVIAR9467 [place], Glucose [Mass/Vol]283 mg/eAIgaf03-527Fli [facility] SystemComment on above: Performed By: #### CH8 ####[facility] PATHOLOGY MMMUPJGSOS7517 [place], [address]Bswjagcrm [Moles/Vol]4.3 mmol/LNormal3.5-5.0The [facility] HospitalroHealth SystemComment on above:Performed By: #### CH8 ####[facility] PATHOLOGY FQPJIBSQIH3436 [place], [address]Hscyjk [Moles/Vol]138 mmol/YBeonqw807-365Fof [facility] HospitalroMetrohealth [facility] SystemComment on above:Performed By: #### CH8 ####[facility] PATHOLOGY MSJBXBNSDK1210 [place], [address]Kzyp nitrogen [Mass/Vol]11 mg/dLNormal7-25The [facility] SystemComment on above: Performed By: #### CH8 ####[facility] PATHOLOGY XONKEABODW6734 [place], [address]Gqoik gap [Moles/Vol]8 mmol/KKrv15-31Swg [facility] SystemComment on above:Performed By: #### HUBER8, MG, PHOS ####[facility] PATHOLOGY CQJMKKQCEK6588 [place], [address]Ugpdfmx [Mass/Vol]7.6 mg/dLLow8.6-10.3The [facility] SystemComment on above:Performed By: #### CH8, MG, PHOS ####[facility] PATHOLOGY FWLRBAWGLD3401 [place], [address]Yendkxlh [Moles/Vol]111 mmol/UBsop91-289Rll [facility] HospitalroHealth SystemComment on above:Performed By: #### HUBER8 MG, PHOS ####[facility] PATHOLOGY LORJRNSMTH7636 [place], [address]RJ6 [Moles/Vol]27 mmol/NVigxce13-20Bnf [facility]roHealth SystemComment on above:Performed By: #### CH8, MG, PHOS ####[facility] PATHOLOGY MISNHYUREW0946 [place], [address]Qjypcidtfj [Mass/Vol]0.46 mg/dLLow0.60-1.20The [facility] HospitalroHealth SystemComment on above:Performed By: #### HUBER8, MG, PHOS ####[facility] PATHOLOGY ZOWOHZTGYF9276 [place], [address]QFZCQDELD GFR (CKD-EPI)112 mL/min/1.73sqmNormal>=60The [facility] SystemComment on above: Result Comment: 2020 CKD EPI Equation using Creatinine without RaceComment: Estimated glomerular filtration rate (eGFR) is calculated without a race coefficient. Values should be interpreted in the context of the patient's full clinical presentation.Reference:1. Cooper Khanna, Liv M, Karyn VILCHIS, et al.. A Unifying Approach for GFR Estimation: Recommendations of the NKF-ASN Task Force on Reassessing the Inclusion of Race in Diagnosing Kidney Disease. Thai Journal of Kidney Diseases 202;79(2):268-88.e1.2. N Engl J Med 2020 Vol. 385 Issue 19 Pages 7836-3847Performed By: Lila#MG SALAZAR PHOS ####S PATHOLOGY LPGYCCYPQG2948 [place], [address]Hnyybyj [Mass/Vol]89 mg/nHBxtdqz98-563Gyh [facility] SystemComment on above:Performed By: ###MG SALAZAR PHOS ####S PATHOLOGY ZAOPAQQPXP0061 [place], [place], [address] Potassium [Moles/Vol]3.6 mmol/LNormal3.5-5.0The [facility] Comment on above:Performed By: Lila#MG SALAZAR PHOS ####S PATHOLOGY AQVEWDPGNB5334 [place], [address]Escmgj [Moles/Vol]142 mmol/LKvhnkf115-278Uhj [facility] HospitalroHealth SystemComment on above:Performed By: Lila#MG SALAZAR PHOS ####S PATHOLOGY ZJLLQDERTN6481 [place], [address]Azjh nitrogen [Mass/Vol]13 mg/dLNormal7-25The [facility] Comment on above:Performed By: MG HOUSER PHOS ####S PATHOLOGY YXSGPREWIO7076 [place], [address]Fztqm metabolic 2000 panelOrdered By: Ankit Holland on 29-42-8110Vioed gap [Moles/Vol]9 mmol/LLow 10 - 20THE [facility] SYSTEMCalcium [Mass/Vol]7.7 mg/dLLow8.6 - 10.3 mg/dLTHE [facility] SYSTEMChloride [Moles/Vol]107 mmol/L98 - 107 mmol/LTHE [facility] SYSTEMCO2 [Moles/Vol]26 mmol/L21 - 31 mmol/LTHE [facility] SYSTEMCreatinine [Mass/Vol]0.51 mg/dLLow0.60 - 1.20 mg/dLTHE [facility] SYSTEMGFR/1.73 sq M.predicted CKD-EPI (S/P/Bld) [Vol rate/Area]109- PINFTHE [facility] Glucose [Mass/Vol]283 mg/eXZunh01 - 109 mg/dLTHE [facility] Interpretation and review of laboratory resultsAbnoHighland District HospitalE [facility] Potassium [Moles/Vol]4.3 mmol/L3.5 - 5.0 mmol/LTHE [facility] SYSTEMSodium [Moles/Vol]138 mmol/L136 - 145 mmol/LTHE [facility] SYSTEMUrea nitrogen [Mass/Vol]11 mg/dL7 - 25 mg/dLTHE [facility] SYSTEMTHE [facility] SYSTEMBasic metabolic 2000 panelon 02-79-7534Nlpzx gap [Moles/Vol]8 mmol/LLow10 - 20THE [facility] SYSTEMCalcium [Mass/Vol]7.6 mg/dLLow8.6 - 10.3 mg/dLTHE [facility] SYSTEMChloride [Moles/Vol]111 mmol/LHigh98 - 107 mmol/LTHE [facility] SYSTEMCO2 [Moles/Vol]27 mmol/L21 - 31 mmol/LTHE [facility] SYSTEMCreatinine [Mass/Vol] 0.46 mg/dLLow0.60 - 1.20 mg/dLTHE [facility] SYSTEMGFR/1.73 sq M.predicted CKD- EPI (S/P/Bld) [Vol rate/Area]112- PINFTHE [facility] SYSTEMGlucose [Mass/Vol]89 mg/dL74 - 109 mg/dLTHE [facility] SYSTEMPotassium [Moles/Vol]3.6 mmol/L3.5 - 5.0 mmol/LTHE [facility] SYSTEMSodium [Moles/Vol]142 mmol/L136 - 145 mmol/LTHE [facility] SYSTEMUrea nitrogen [Mass/Vol]13 mg/dL7 - 25 mg/dLTHE [facility] SYSTEMCBC panel Auto (Bld)on 35-39-2266Syhsybjaibb distribution width (RBC) [Ratio]14.6 %High11.5 - 14.5 %THE [facility]ALTH SYSTEMHematocrit (Bld) [Volume fraction]22.8 %Low36.0 - 46.0 %THE [facility] SYSTEMHemoglobin (Bld) [Mass/Vol] 7.5 g/dLLow12.0 - 15.0 g/dLTHE [facility] SYSTEMInterpretation and review of laboratory resultsAbAtrium Health Cleveland [facility]INERS HOSPITALMCH (RBC) [Entitic mass]29.9 pg 26.0 - 34.0 pgTHE [facility]INNATI SHRINERS HOSPITALMCHC (RBC) [Mass/Vol]33.1 g/dL32.0 - 35.9 g/dLTHE [facility] BRENT[facility] HOSPITALV (RBC) [Entitic vol]91 fL80 - 100 fLTHE [facility] FALLS HOSPITALROSOUTHWEST [facility] SYSTEMPlatelet mean volume (Bld) [Entitic vol]9.2 fL7.5 - 11.2 fLTHE [facility] HOSPITALROSOUTHWEST GENERAL [facility]ENTER SYSTEMPlatelets (Bld) [#/Vol]347 10*3/uL150 - 400 K/uLTHE [facility] SYSTEMRBC (Bld) [#/Vol]2.52 10*6/uLLowTHE [facility] SYSTEMWBC (Bld) [#/Vol]10.1 10*3/uL 4.5 - 11.5 K/uLTHE [facility] SYSTEMTHE [facility] SYSTEMCOMPLETE BLOOD COUNT on 67-09-3448Cmxotycbrww distribution width (RBC) [Ratio]14.6 %High11.5-14.5The [facility] SystemComment on above:Performed By: #### CBC ####S PATHOLOGY MIXUJENKTG[address] [place] [address], [address]Cgvzzludaw (Bld) [Volume fraction]22.8 %Low36.0-46.0The [facility] SystemComment on above: Performed By: #### CBC ####S PATHOLOGY FGXXQSIMSS7383 [place], [address]Horvlvhnkd (Bld) [Mass/Vol]7.5 g/dLLow12.0-15.0The [facility] SystemComment on above:Performed By: #### CBC ####S PATHOLOGY NQQBDKYTHQ0365 [place], [address]JTY (RBC) [Entitic mass]29.9 lwPtdiyw39.0-34.0The [facility] SystemComment on above:Performed By: #### CBC ####S PATHOLOGY SCFRWOOWNA7326 [place], [address]VPBZ (RBC) [Mass/Vol]33.1 g/yJLqegcf57.0-35.9The [facility] Comment on above:Performed By: #### CBC ####[facility] PATHOLOGY OIIJXJCQVW8207 [place], [address]HZL (RBC) [Entitic vol]91 fLNormal 80-100The [facility] HospitalroHealth SystemComment on above:Performed By: #### CBC ####[facility] PATHOLOGY [id number] [place] [address], [id number] mean volume (Bld) [Entitic vol]9.2 fLNormal7.5-11.2[facility] above:Performed By: #### CBC ####[facility] PATH[facility]Y [id number] [place] [address], [id number] (Bld) [#/Vol]347 10*3/eHLsserm124-015Tkr [facility] SystemComment on above:Performed By: #### CBC ####[facility] [id number] [place] [address], [id number] (Bld) [#/Vol]2.52 10*6/uLLow4.00-5.20[facility] [facility] HospitalroHealth SystemComment on above:Performed By: #### CBC ####[facility] PATHOLOGY HNJPRYXTIA[address] [place] [address], [phone] (Bld) [#/Vol]10.1 10*3/uLNormal4.5-11.5The [facility] HospitalroMetro[facility] SystemComment on above: Performed By: #### CBC ####[facility] PATHOLOGY DBOUKBQARK[address] [place] [address], [phone], CSF/GRAM STAINOrdered By: Arianna Burkett on 23-25-4220Ogqftmwm identified Cx Nom (CSF)No GrowthTHE [facility] HOSPITALROSOUTHWE[facility] SYSTEM Microscopic observation Gram stain Nom (Unsp spec)This Gram Stain was performed on a Cytocentrifuged specimen.THE [facility]ITALROSOUTHWEST [facility] SYSTEMMicroscopic observation Gram stain Nom (Unsp spec)No Polymorphonuclear Leukocytes seenTHE [facility]OSPITALROSOUTHWEST [facility] Microscopic observation Gram stain Nom (Unsp spec)No Squamous Epithelial Cells seenTHE [facility]OSPITALROSOUTHWEST GENER[facility]ENTER SYSTEMMicroscopic observation Gram stain Nom (Unsp spec)No organisms seenTHE METROHEALTH SYSTEMTHE METROHEALTH SYSTEMCare Plan Noteon 64-26-3049Wbuimvyiqebow Authentication Interface Message TextNormalThe MetroHealth SystemConsultson 60-40-0770Igflrqxxuqzhd Authentication Interface Message TextNormalThe MetroMetrohealth Main Campus Medical Center SystemGLUCOSE, FINGERSTICK-IN OFFICEon 26-32-4468Amjlass [Mass/Vol]133 mg/mWGptm59-453Fgq [facility] SystemComment on above:Performed By: #### [id number] ####NURSING GLUCOSE HUURLNC7144 [place], [place], [address]Tsdowqi [Mass/Vol]133 mg/cLKzyp55-768Sdn [facility] SystemComment on above:Performed By: #### 40076 ####NURSING GLUCOSE BJEJRWB6043 [place], [place], [address]Ffitwuw [Mass/Vol]81 mg/rDZtkdkf63-921Uat [facility] SystemComment on above:Performed By: #### 89003 ####NURSING GLUCOSE NPVXKCX2556 [place], [place], [address]Equvegc [Mass/Vol]91 mg/dL Jrbgcd85-316Kit [facility] SystemComment on above:Performed By: #### 57213 ####NURSING GLUCOSE LSTWTCQ9494 [place], [place], [address]Paxoghj [Mass/Vol]91 mg/dL68 - 110 mg/dLTHE METROHEALTH SYSTEMGlucose [Mass/Vol]81 mg/dL 68 - 110 mg/dLTHE METROHEALTH SYSTEMGlucose [Mass/Vol]301 mg/iBNoyr37-118Vbv [facility] SystemComment on above:Performed By: #### 39226 ####NURSING GLUCOSE BPDPEHH3987 [place], [place], [address]Tnkdoaj [Mass/Vol]203 mg/dLHigh 68-110The [facility]Health SystemComment on above:Performed By: #### 01328 ####NURSING GLUCOSE WCJAZEC4186 [place], [place], [address]Agcgvex [Mass/Vol]409 mg/dRVaii67-482Zph [facility] SystemComment on above:Performed By: #### 61953 ####NURSING GLUCOSE DKQBLJF5501 [place], [place], [address]Nqqchlr [Mass/Vol]301 mg/uBRzvc85 - 110 mg/dLTHE [facility] SYSTEM Interpretation and review of laboratory resultsAbnoFrye Regional Medical Center Alexander CampusROHEALTH SYSTEMTHE METROHEALTH SYSTEMGlucose [Mass/Vol]409 mg/kMZfxt32 - 110 mg/dLTHE METRO[facility]ALTH SYSTEMGlucose [Mass/Vol]203 mg/sNJwdh30 - 110 mg/dLTHE METRO[facility]ALTH SYSTEMGlucose [Mass/Vol]119 mg/rOQitq78-630Rne [facility] HospitalroHealth SystemComment on above:Performed By: #### 55301 ####NURSING GLUCOSE NYBGZXM[address] [place] [address], [address]Heimnxn [Mass/Vol]65 mg/iMJyq56-012Bsf [facility] HospitalroHealth SystemComment on above: Performed By: #### 60204 ####NURSING GLUCOSE YNFLWFN[address] [place] [address], [address]Rghihee [Mass/Vol]119 mg/hPTyoi70 - 110 mg/dLTHE METROHEALTH SYSTEMInterpretation and review of laboratory resultsAbnoFrye Regional Medical Center Alexander CampusROSOUTHWEST GENERAL HEALTH CENTER SYSTEMTHE [facility] HOSPITALROHEALTH SYSTEMGlucose [Mass/Vol]65 mg/dLLow68 - 110 mg/dLTHE METRO[facility]ALTH SYSTEMInterpretation and review of laboratory results AbnormalTHE GL[facility] FALLS HOSPITALROHEALTH SYSTEMTHE METROHEALTH SYSTEMGlucose [Mass/Vol]96 mg/dL Epdrqp59-569Sdk [facility] HospitalroHealth SystemComment on above:Performed By: #### 49434 ####NURSING GLUCOSE NYTSEER[address] [place] [address], [address]Volnyuf [Mass/Vol]74 mg/oSIqgjri99-746Tno [facility] HospitalroHealth SystemComment on above:Performed By: #### 06401 ####NURSING GLUCOSE UBFAXKO7716 [place], [place], [address]Lcszaje [Mass/Vol]96 mg/dL68 - 110 mg/dLTHE GL[facility] FALL[facility] HOSPITALROHEALTH SYSTEM Interpretation and review of laboratory resultsNormMansfield Hospital SYSTEMTHE METROHEALTH SYSTEMGlucose [Mass/Vol]124 mg/lLQqjd62-552Ekt [facility] Comment on above:Performed By: #### 07799 ####NURSING GLUCOSE GWRJHZZ[address] [place] [address], [address]Dcfgjkl [Mass/Vol]51 mg/dLCritically low 68-110The [facility] SystemComment on above:Result Comment: Result Not ConfirmedPerformed By: #### 13712 ####[facility] GLUCOSE SVAZXFJ[address] [place] [address], [address]Sstmzlk [Mass/Vol]51 mg/dLCritically efj78-896Fjx [facility] SystemComment on above:Result Comment: Follow ProtocolPerformed By: #### 51958 ####[facility] GLUCOSE LNZANTD[address] [place] [address], [address] Glucose [Mass/Vol]74 mg/dL68 - 110 mg/dLTHE [facility] HOSPITALROSOUTHWEST [facility] SYSTEMInterpretation and review of laboratory resultsNoHocking Valley Community HospitalROSOUTHWEST GENER[facility] SYSTEM Glucose [Mass/Vol]124 mg/bGHxeq68 - 110 mg/dLTHE [facility]OSPITALROSOUTHWE[facility] SYSTEM Interpretation and review of laboratory resultsAbAultman HospitalROSOUTHWEST GENERAL HEALTH CENTER SYSTEMGlucose [Mass/Vol]51 mg/dLCritically low68 - 110 mg/dLTHE [facility]ITALROSOUTHWEST [facility] SYSTEMInterpretation and review of laboratory resultsAbnoFisher-Titus Medical CenterTHE [facility]OSPITALROSOUTHWE[facility] SYSTEMGlucose [Mass/Vol]51 mg/dLCritically low 68 - 110 mg/dLTHE [facility]ALLS HOSPITALROHEALTH SYSTEMInterpretation and review of laboratory resultsAbAultman HospitalROSOUTHWEST GENERAL HEALTH CENTER SYSTEMGlucose [Mass/Vol]85 mg/nGXdbzle29-739Ffz [facility] SystemComment on above:Performed By: #### [id number] ####[facility] GLUCOSE YLLMCTK[address] [place] [address], [address]IZALCBOR TOP TUBE, BLOODon 28-64-2157Unfik TubeDoneTHE [facility] SYSTEMLaboratory - Chemistry and Chemistry - challengeon 21-98-7035Ncscsrm [Mass/Vol]133 mg/vAMxsm46 - 110 mg/dLTHE [facility] SYSTEMMAGNESIUMon 28-21-4603Krfmtyijy [Mass/Vol]1.7 mg/dLLow1.9-2.7The [facility] SystemComment on above:Result Comment: Note updated reference ranges.Performed By: #### CH8, MG, PHOS ####[facility] PATHOLOGY ZWUPAQNGKV[address] [place] [address], [place], [address]Magnesium [Mass/Vol]1.7 mg/dLLow1.9 - 2.7 mg/dLTHE [facility] SYSTEMNo Panel Informationon 95-45-7011Oloxxzhynfbuet and review of laboratory results AbnormalTHE [facility]ITALTHE [facility] SYSTEMInterpretation and review of laboratory resultsNoFisher-Titus Medical CenterTHE [facility] SYSTEM Interpretation and review of laboratory resultsAbnoFisher-Titus Medical CenterTHE [facility] SYSTEMInterpretation and review of laboratory resultsAbnoFisher-Titus Medical CenterTHE [facility] SYSTEMPHOSPHORUSon 59-99-0639Ejnsyaqmq [Mass/Vol]3.1 mg/dLNormal2.5-5.0The [facility] SystemComment on above:Result Comment: Note updated reference ranges.Performed By: #### CH8, MG, PHOS ####[facility] PATHOLOGY RCSEUSZEKV4604 [place], [address] Interpretation and review of laboratory resultsNoFisher-Titus Medical Center Phosphate [Mass/Vol]3.1 mg/dL2.5 - 5.0 mg/dLTHE [facility] SYSTEMProgress Notes on 33-63-4982Pmyrztgpfujxi Authentication Interface Message TextMD notified pt POCT glucose on one right hand is 409 and 203 on left hand; BMP sent.NormalThe [facility] SystemTranscription Authentication Interface Message TextNoMemorial Hospital SystemTranscription Authentication Interface Message TextNoMemorial Hospital SystemTranscription Authentication Interface Message TextNoMemorial Hospital SystemTranscription Authentication Interface Message TextNoMemorial Hospital SystemSPECIMEN FOR SURGICAL PATHOrdered By: Aarti Reyes on 51-32-1667Lkgy ReportTHE [facility] SYSTEM Work Phone: Final Diagnosis j7bgyYRcIHVfr5wpWWNjvYDyQcGbVgYyAkDpSkwzdORlVArjfeOuUCwgzOnyYEG1AVZwGM4bdMnxpIw1 fDumBZIarkW3bTChZMfl b5slOJW7q3auxmfsFCDlFNrhTy7umYJxgEjyFdYdCXZzPKf1rJ39HJClqF5snZUyMFr4OUDijWWouaCw WoOhJHKggCQrwQR6FQNh TC0mtujpTMsoLVvmOFLspeP4CIFmrGSvG3GqPWZoMP4vanmaERJ3PDvfPGXqFKM4RiCnYMLel9Nxbbs7 MjBccGFyZFxwbGFpblxi WUTqDgPzUG0dPdTjGXdmQFLnv7EqTLUaPUZcE4Aac12dVVBsegarINkfFICaM2JyiClwnmWfs8Rxo57u eXieIx49QBlgo7k2nPA3 cwOwg951bgKkBJ8pJ3Icr0yiISOgAMFfO2K5HHAlkjAjGS6iHBNcj85zFBhojT7jtzbwH9CyBMHktURw PXcnEPmrj7zfoIxxkR2r FVBxUHKqVOIvCNQsc8Gkj0XgfYDbYTkdm2kojqXcGYQluaYMKCHwrO2vUP0kWFKho3GeuCcfzeSjjlWj dmlhYmxlIHdpdGggaGVt i9MhiFHxHYFljwPml2Cgg2TjySImITrii0pvgfQbOIGooacsCIBjZoREWwUdN37zm16sEYRuB7HjMEKa IXDrJ6Nnq28wTCPeooyc QJflKUYjI1OkuVtdzoImc5NkvLPpG2CxTt30DQbey0r7pLIqd43fGIT4xX1vDNYdARNlt8MaTENfmCZw FBmpJifywF2teGsjebWy zkVyLPBuBTIvc33rAwtiYMRoJTNcO6kuzjNeFbQiJMYnF7Opb06tWRIiEFDaFQBiIN3gBFAvnesjMSW7 c6latXClBIKdzMKzLwRd OLVaDWRug3nxOVEvyOEuEmYhIvNbFwCzStceyAWiRIWnEyXen1yzi818oFVoq4vbXEPtIrJ3vOTqGYEl bJYjA595TWOuSMivp6np p2PdXOArlRUbx4T6OAZVvtxfpUx9mIrgO73co4F6DoatP5haSDEaYXRbM0AkZF3dUKGqXlz4WKP7YOP4 CYJyUHb2BMjcXUZaJBXf Jed3DOp2JKjrhtYkVYoivtMkknTrJiw3XSBiG732QMR1wYwnl2kqQFA6PUJmAJTdBkOzIk8bsSGjJ169 WDOlKHLZLCMxzRq6UNIw ftWxjrAsnVZZp690L594t8jgVOAismZgxGiXaykdo5ixJ152LGPsxLGcrdEuOfChPBKvtZBiqDV9RACe SU8yxwksSEheVTgiDKBm lwN5OMYycQUjY1FhMDSzQU2bwjnoQTV0JVoyWHPgTRZ9BqMwZTDlj0Bgxuj6NfBzda1fvw74CER3x2Pz eAzkCBV6MIM8WjUuDs2o lLZwIJNlLO8aIdYdwBCeCUUqts06nIikTQhikjCssB6gJyDtTEIecZIaUHCoKF6teRLbEMYsbX2qqybt XHBnYnJkcmhlYWRccGdi tlIbBv4miVabICB1TYcsJ6qzrG0dIiH2DYqlP2khnT6bWPc5WBpykXS3NQGfvN6iYV3tgxhrm5myOMpk DNkmCYNwaqF2kyJ5CRUj rJWqF2XlhK4jVLDzRW8lazbbk4vcENC5QLqaQCLiRYT7BjHkWTMej2Ogryy1UlWbh5JqcZCgDIgiJ87p o452LIIsjvPlH0ryzFBj mhjhwNExdqcyZJclngG4XWYsWPIwMNkkYPZrZFTnEwLqpIUhZcBiLiGrnRmwjCssFJytFnEkOJDiOXis A6jvHdUnAnVdEogoQXYh fOfzzJ3cSrNmUiCjFXwfUX2dMDGxP7lyxGWlNZNsRJFsG3coFvNyeX2znPpzNMeuaySiXUVhQJX6dp5p wZQqiWd7WXJpL35tMPEU fOWgFavtEBQvuMIpURcwdSVqBLNzDQ6UTN1mBPLnKpA0AyYsVrCuPYCkfpsnPZPqgTynkI0vNxPmFjVc TSiaGS6jTSFsJ9segEDb XVRgMICuS0chWsUkeV4ljDtvLLlwNxUgTlUeUHauUEpvQ9PsbXjqkRK8pDP3KBqjwSSuo46aMWkpxEQm i79pePH6XFYyfIhcPZUu EXjie1Z0bJFnUNJnxWKecVsoolZjBhL7fENsBYKcqxDnn7PbR2hmYS5enktsFP0iAFrfewSmlvOhNEFj ZWQgdGhlIGZpbmFsIGRp MPjmk4SpamkwkdgiIRvrfUFwvkhpJRnijuSsNXggdqgaGPVwHQdeW2bnNzQlSLNblZjkUOboq0GlSADr PWZhAyEqsLLjGXYdfk24BYZ [facility] Work Phone: Gross Description u4zoyOIpKBYadRTjPWTbI6dygnUaELIswOXxZ4MtdtocTFqvDX6zIV1wyYrwkTTzoTPaFQRfRbIed6pg o390qEYfs1kmSDGLoavt cOk3rLxsM04ix2V2HhjxI82dnXLiJEI2XLWqLKJjaZWhHFPnYPG6XCWrqIXfE8zdKBRmHK0oxjmtFLqr QFpoPHQxzXP8AFVieVSq W0EpFRZfYYhqVNZadpw7FaFuJw4ekYHrpJnxDZhpMAFoSPIkYEuxCMWcCzSnHLVbSZ4kCvAxoEravKIo u53bNRKchuTqVKLQyKAd rIEdt4queORdLFKjmttqLXIjCDopMQNhGNQcyZMkQFmuXPOeC4WffzJcHHKuqiRikCMfzbAsjuNdW15r dGFpbmVyLCBsYWJlbGVk YLjarQngyVbcUJUciRztxzClmfTfIS7dATHuRWEcWLVnK1KhZJYcI68hXPXjiD5rSKAtSH8oejmkDQQk amOvLIKfSCuhVOHsm1Vp Om3aGZvcVVNwOQVxcGVoWVIrgkOpq8TfZJ4cZJSgBHLjD05cskEdy6The48lfWcvGz16TUysrDZld1Ay bG4rFYFxHELyLPreRVjn snp6sERoPV0bQc91NEYxDPspBBWjdoY0aDXjbeYlU8DwERNLgDIhu8M1OJHvv6OsEdZeNVHgXrW8gCGa Ss72YNtttSYuR6QxcN61 IN0dTFTRuENhpHVee9CeaCGdjQUyGRHzSUWzwrNsvnRkwl22TL3tYG3zEMFdMP43QURhKBVbQLTgrYWs BKMdx59efPUjXA4uprOf XDivWwEidyYqOIwkCOfiTR71aEFxXSGxtD4aQZJgJCSrWWGpHBUfn66mxTkmHTWehAHhLPJbU7Uwi60x mLNqL7bfUZRiFWMnZiNu dYBmwe3tBORcRPJzmpXqwjQyEMX4zY3jOA4hyspcio7hPKQpytfaTUWmY6KgyEigsqU0DKWqGdYitvKh BQ38RAOoszAxuZVuNACb etHzHGAgLRRKdKYxdSMdFDUhM9Fby26eeYNhD2goHDbgBAooqPJcHRKOQm3tBLMwQ42cSRBeSAEwH1Qx r28yuDNnM5diRFscFHct OAAbSMGlIvTuI0AkvWttagZgq6IoJc24PLliAWHdSRZwazFlDSLgNYWbCXYDGRD2eP2wtxZjFoFxwOS9 YXRlZCBhcmVhIHRvIHRo HFCbe8qikWL9LQcwKYppMWDcH3mwBKfzPYLrhIVpLRNobpHYRpHBXRC0yPYviRhasqJhXCLqXDCtB3Cc vV2hGdflSYFtuWJkKABf BATeiSAvkJ0lyvBjwrExTKFjqYMuMRYlFsFvm0vvdK0jr83uKBRwinUvoA8iioskiBDzJDazROA5qAAh OWSgOTNgLZEnNR14K1Dh waNmCJWompIpdEWbtHCssXZiNUJouzKekwDiGpRjPpZTRULiZPLnVPEfSsHhMVG0aLOjFCHaBYCbcXQa yF7gyaGkk45hpXJ9weWe UmLykCxcFUNuQ99ipoZnz7FvBQtsronxEVCwb3QkUL0oLQF6pyloQtHeCWPvdBNnxrRfIG8gvQhpBY1i DMJjTHAdAWZsniP5pBFg vjImK0NbZBVjUAIwpALth1JeWCM6rzMbZ5UcbEEqwMrixbFmdDWqDNBaFMTqobX5qrPruHBfc3XraBMd Eh0iNEXveZWiWWAfg24n WnxxWHStgAYhOOWjA0Lry04jByTbJRRssBEzs8FknRF1vMMvIYFiihabXITwHRMYVR4jTEUve2oqsDWo SGGuh2MtpOewljMsWKNs zR6kLTjzWAGfagOkGTZlHeFkXYrvnAPdGAPom3TrcYggmhWyQTVfrL9tWZpdYJUmsxEnPCZaYP7kGuWs MdDdA1EhrPlwdrDcd9Ve VyBzuY40wMkqi88wv5IoKj02HDwkATjmRTDnM3nxMFcgQBQjmGFuIESpX3UwjdAcGHi4SWerWKDzbKCk XHBhcmRccGFyfQ==THE [employer] Work Phone: THE [employer] Work Phone: BASIC METABOLIC PANELon 33-93-6224Zxcun gap [Moles/Vol]10 mmol/DEwkwne95-55Fxv [facility] SystemComment on above:Performed By: #### RADHIKA JAUREGUI PHOS ####[facility] PATH[facility] ILFSURPVSM6553 [place], [address]Oxktlhu [Mass/Vol]8.0 mg/dLLow8.6-10.3The [facility] SystemComment on above:Performed By: #### RADHIKA JAUREGUI, PHOS ####[facility] PATHOLOGY WLECPATLAM5953 [place], [address]Kwghuuhg [Moles/Vol]109 mmol/SVrvj20-727Zeb [facility] SystemComment on above:Performed By: #### RADHIKA JAUREGUI, PHOS ####[facility] PATHOLOGY HPHJHBFGDK8615 [place], [address]HB7 [Moles/Vol]29 mmol/RCqnqhs11-17Aut [facility] SystemComment on above:Performed By: #### RADHIKA JAUREGUI, PHOS ####[facility] PATHOLOGY TAAEUICQAE2665 [place], [address]Vlklcbakmi [Mass/Vol] 0.49 mg/dLLow0.60-1.20The [facility] SystemComment on above:Performed By: ###RADHIKA FOWLER PHOS ####[facility] UNJAJMNQJL6945 [place], [address]WOXBGXHWA GFR (CKD-EPI)110 mL/min/1.73sqmNormal>=60The [facility] HospitalroHealth SystemComment on above:Result Comment: 2020 CKD EPI Equation using Creatinine without RaceComment: Estimated glomerular filtration rate (eGFR) is calculated without a race coefficient. Values should be interpreted in the context of the patient's full clinical presentation.Reference:1. Cooper C, Liv M, Karyn VILCHIS, et al.. A Unifying Approach for GFR Estimation: Recommendations of the NKF-ASN Task Force on Reassessing the Inclusion of Race in Diagnosing Kidney Disease. [place] Journal of Kidney Diseases 2021;79(2):268-88.e1.2. N Engl J Med 2020 Vol. 385 Issue 19 Pages 8262-5576Performed By: ###RADHIKA FOWLER PHOS ####[facility] PATH[facility] NCBNFFZIAV0243 [place], [address]Dfntzck [Mass/Vol]97 mg/iNLekfqi90-902Wzr [facility]ro[facility] SystemComment on above:Performed By: ###RADHIKA FOWLER PHOS ####[facility] PATH[facility]Y GHGRDVJCQZ1755 [place], [address]Pmjqtjkdt [Moles/Vol]3.7 mmol/LNormal3.5-5.0The [facility]roHealth SystemComment on above:Performed By: ###RADHIKA FOWLER PHOS ####[facility] PATH[facility]Y JMMUNKLDZV2346 [place], [address]Ipmvlo [Moles/Vol]144 mmol/VMkyzgw737-893Tkq [facility]roHealth SystemComment on above: Performed By: ###RADHIKA FOWLER PHOS ####[facility] PATHOLOGY JROACZWFSV6668 [place], [address]Pygj nitrogen [Mass/Vol]15 mg/dLNormal7-25The [facility] HospitalroHealth SystemComment on above:Performed By: ###RADHIKA FOWLER PHOS ####[facility] PATHOLOGY EEGFUFRSQG9680 [facility] Hospital[place], [address] metabolic 2000 panelon 85-46-0927Clwva gap [Moles/Vol]10 mmol/L10 - 20THE [facility]ALTH SYSTEMCalcium [Mass/Vol]8.0 mg/dLLow8.6 - 10.3 mg/dLTHE [facility]RO[facility]ALTH SYSTEMChloride [Moles/Vol]109 mmol/LHigh98 - 107 mmol/LTHE [facility]RO[facility]ALTH SYSTEMCO2 [Moles/Vol]29 mmol/L21 - 31 mmol/LTHE [facility] SYSTEMCreatinine [Mass/Vol] 0.49 mg/dLLow0.60 - 1.20 mg/dLTHE METROMojeek SYSTEMGFR/1.73 sq M.predicted CKD- EPI (S/P/Bld) [Vol rate/Area]110- PINFTHE METROMojeek SYSTEMGlucose [Mass/Vol]97 mg/dL74 - 109 mg/dLTHE [facility]RO[facility]ALTH SYSTEMPotassium [Moles/Vol]3.7 mmol/L3.5 - 5.0 mmol/LTHE [facility]ALTH SYSTEMSodium [Moles/Vol]144 mmol/L136 - 145 mmol/LTHE [facility] SYSTEMUrea nitrogen [Mass/Vol]15 mg/dL7 - 25 mg/dLTHE [employer] Xinguang TechnologyCBC panel Auto (Bld)on 99-63-5280Avxwjizhvle distribution width (RBC) [Ratio]15.3 %High11.5 - 14.5 %THE [employer] Work Phone: Hematocrit (Bld) [Volume fraction]25.2 %Low36.0 - 46.0 %THE [employer] [facility] Work Phone: Hemoglobin (Bld) [Mass/Vol]7.9 g/dLLow12.0 - 15.0 g/dL THE [employer] [facility] Work Phone: Interpretation and review of laboratory results AbnormalTHE [employer] Work Phone: MCH (RBC) [Entitic mass]28.2 pg26.0 - 34.0 pgTHE [employer] Work Phone: MCHC (RBC) [Mass/Vol]31.5 g/dLLow32.0 - 35.9 g/dLTHE [employer] [facility] Work Phone: MCV (RBC) [Entitic vol]89 fL80 - 100 fLTHE [employer] [facility] Work Phone: Platelet mean volume (Bld) [Entitic vol]8.6 fL7.5 - 11.2 fLTHE [employer] SYSTEM Work Phone: Platelets (Bld) [#/Vol]304 10*3/uL150 - 400 K/uLTHE [employer] [facility] Work Phone: RBC (Bld) [#/Vol]2.82 10*6/uLLowTHE [employer] Work Phone: WBC (Bld) [#/Vol]11.1 10*3/uL4.5 - 11.5 K/uLTHE [employer] SYSTEM Work Phone: THE [employer] Work Phone: COMPLETE BLOOD COUNTon 64-70-9062Hxwyubmlohe distribution width (RBC) [Ratio]15.3 %High11.5-14.5The [facility] HospitalAxel Technologies SystemComment on above:Performed By: #### CBC ####[facility] PATH[facility] LTYMUSSCRJ[address] [place] [address], [address]Rzdfzeeelg (Bld) [Volume fraction]25.2 %Low 36.0-46.0The [facility] HospitalAxel Technologies SystemComment on above:Performed By: #### CBC ####[facility] PATHOLOGY KIGDTUAZFT3481 [place], [address]Mkpphvawqf (Bld) [Mass/Vol]7.9 g/dLLow12.0-15.0The [facility] HospitalAxel Technologies SystemComment on above: Performed By: #### CBC ####[facility] PATHOLOGY XJLZLTQVJE[address] [place] [address], [address]HXR (RBC) [Entitic mass]28.2 qrZqgjdl13.0-34.0The [facility] HospitalAxel Technologies SystemComment on above:Performed By: #### CBC ####[facility] PATH[facility]Y KSPIOELEBQ5037 [place], [address]QTTM (RBC) [Mass/Vol] 31.5 g/dLLow32.0-35.9The [facility] SystemComment on above:Performed By: #### CBC ####[facility] PATHOLOGY SUNKINQAFK[address] [place] [address], MCV (RBC) [Entitic vol]89 bXXsdjxz33-123Abc [facility] SystemComment on above: Performed By: #### CBC ####[facility] PATHOLOGY WAQCECUJZN[address] [place] [address], [address]Tyelidwo mean volume (Bld) [Entitic vol]8.6 fL Normal7.5-11.2The [facility] SystemComment on above:Performed By: #### CBC ####[facility] PATHOLOGY ZGGIIMVHSU[address] [place] [address], Platelets (Bld) [#/Vol]304 10*3/eARudynr583-104Gdl [facility] SystemComment on above:Performed By: #### CBC ####[facility] PATHOLOGY WUGPGOZKUB[address] [place] [address], [address]JSO (Bld) [#/Vol]2.82 10*6/uLLow4.00-5.20The [facility] SystemComment on above:Performed By: #### CBC ####[facility] PATHOLOGY [id number] [place] [address], [id number] (Bld) [#/Vol]11.1 10*3/uLNormal4.5-11.5The [facility] SystemComment on above:Performed By: #### CBC ####[facility] PATHOLOGY [id number] [place] [address], CREATININE, BODY FLUIDon [id number] [Mass/Vol]0.40 mg/dLNormalThe [facility] SystemComment on above:Result Comment: This test was developed, and its performance characteristics determined by the Department of Pathology of [facility]. It has not been cleared or approved by the FDA. This test is used for clinical purposes only.Performed By: #### CRTF ####[facility] [id number] [place], [address]Qphilvkymd (Body fld) [Mass/Vol]0.40 mg/dLTHE METROHEALTH SYSTEMTHE METROHEALTH SYSTEMCare Plan Noteon [phone] Authentication Interface Message TextNormCentra Virginia Baptist HospitalroMetrohealth [facility] SystemConsultson [phone] Authentication Interface Message TextNoMemorial Hospital SystemTranscription Authentication Interface Message TextNoAtrium Health Pineville Rehabilitation HospitalroMetrohealth [facility] SystemGLUCOSE, FINGERSTICK-IN OFFICEon [phone] [Mass/Vol]85 mg/dL68 - 110 mg/dLTHE [facility] SYSTEM Interpretation and review of laboratory resultsNoUC Medical Center SYSTEMTHE METROHEALTH SYSTEMGlucose [Mass/Vol]189 mg/bMJujc90-492Pkn [facility] System Comment on above:Performed By: #### [id number] ####NURSING GLUCOSE [id number] [place], [place], [address]Wulxdop [Mass/Vol]189 mg/jHUgkz77 - 110 mg/dLTHE METROHEALTH SYSTEMInterpretation and review of laboratory results AbnormalTHE GL[facility] FALLS HOSPITALROHEALTH SYSTEMTHE METROHEALTH SYSTEMGlucose [Mass/Vol]116 mg/dL Izxf90-119Dop [facility] HospitalroHealth SystemComment on above:Result Comment: Notified ALISTAIR KEY MDPerformed By: #### [id number] ####NURSING GLUCOSE [id number] [place], [place], [address]Thoeqoq [Mass/Vol]116 mg/nPSyiy87 - 110 mg/dLTHE METROHEALTH SYSTEMInterpretation and review of laboratory resultsAbnoFrye Regional Medical Center Alexander CampusROSOUTHWEST [facility] SYSTEMTHE METROHEALTH SYSTEMGlucose [Mass/Vol]75 mg/sOXberbu00-205 The [facility] HospitalroHealth SystemComment on above:Performed By: #### [id number] ####NURSING GLUCOSE [id number] [place], [place], [address]Ovdwepx [Mass/Vol]75 mg/dL68 - 110 mg/dLTHE METROHEALTH SYSTEMInterpretation and review of laboratory resultsNormHealthSouth Medical CenterROHEALTH SYSTEMTHE METROHEALTH SYSTEMGlucose [Mass/Vol]177 mg/eRRkpe15-204Enr [facility] SystemComment on above:Performed By: #### [id number] ####NURSING GLUCOSE [id number] [place], [place], [address]JRWXNWTNVwb [phone] [Mass/Vol]1.8 mg/dLLow1.9-2.7The [facility] HealthHealth SystemComment on above:Result Comment: Note updated reference ranges.Performed By: #### RADHIKA JAUREGUI, PHOS ####[facility] PATH[facility]Y [id number] [place], [place], [address]Magnesium [Mass/Vol]1.8 mg/dLLow1.9 - 2.7 mg/dLTHE GLENS FALLS HOSPITALROHEALTH SYSTEMNo Panel Informationon [phone] and review of laboratory results AbnormalTHE GL[facility] FALLS HOSPITALROSOUTHWEST GENERAL [facility] SYSTEMTHE METROHEALTH SYSTEMPHOSPHORUSon 07-02-2023 Phosphate [Mass/Vol]3.6 mg/dLNormal2.5-5.0The [facility] HospitalroHealth SystemComment on above:Result Comment: Note updated reference ranges.Performed By: #### RADHIKA JAUREGUI, PHOS ####[facility] PATHOLOGY [id number] [place], [address] Interpretation and review of laboratory resultsNormalTHE GL[facility]ALL[facility] HOSPITALROHEALTH SYSTEM Phosphate [Mass/Vol]3.6 mg/dL2.5 - 5.0 mg/dLTHE GL[facility] FALLS HOSPITALROHEALTH SYSTEMProcedureson [phone] Authentication Interface Message TextNormCentra Virginia Baptist HospitalroHealth SystemProgress Noteson 39-15-8048Dbdpxxtkuyepa Authentication Interface Message TextNormCentra Virginia Baptist HospitalroHealth SystemTranscription Authentication Interface Message TextNormSouthview Medical Centere [facility] HospitalroHealth SystemTranscription Authentication Interface Message TextNormCentra Virginia Baptist HospitalroHealth SystemTranscription Authentication Interface Message TextNormCentra Virginia Baptist HospitalroHealth SystemTranscription Authentication Interface Message TextNormSouthview Medical Centere MetroHealth SystemXR SKULL PA+LATERAL 2 VIEWSon [id number] SKULL PA+LATERAL 2 VIEWSNormalThe [facility] Sk[facility] PA and Right lateral and Left lateralon [id number] [facility] Work Phone: Radiology Study observation (narrative)[facility] Work Phone: XR Skull PA and Right lateral and Left lateralOrdered By: Myrna Carter on 09-33-1331YBX [facility] Work Phone: aNTI FXA-LMW HEPARINon 25-50-8573PIOB FXA-LMW HEPARIN ASSAY0.38 IU/mLNormalThe [facility], Operated By [facility] HealthHealth SystemComment on above:Order Comment: The recommended therapeutic range for treatment of thrombosis with Low Molecular Weight Heparin is 0.5 - 1.0 IU/mLThe recommended range for VTE prophylaxis with Low Molecular Weight Heparin is 0.2 - 0.4 IU/mL.Performed By: #### JOAN ####S PATHOLOGY CZLWMPIWTT[address] [place] [address], [address]UTD Heparin Chromogenic method Qn (PPP)0.38IU/mLTHE [facility] SYSTEMTHE [facility] THE [facility] SYSTEMBASIC METABOLIC PANELon 02-87-3921Ombtg gap [Moles/Vol]15 mmol/UIdxmtp22-49Enh [facility] SystemComment on above:Performed By: #### CH8 ####S PATHOLOGY ZRMDSXHTFD0308 [place], [place], Calcium [Mass/Vol]8.0 mg/dLLow8.6-10.3The [facility]ro[facility] SystemComment on above: Performed By: #### CH8 ####S PATHOLOGY JSSBZZMLRQ8290 [place], [address]Gevzcxtv [Moles/Vol]104 mmol/LUbgvli84-356Yta [facility] SystemComment on above:Performed By: #### CH8 ####S PATHOLOGY NUVIUMNNBN6261 [place], [address]MF4 [Moles/Vol]28 mmol/DKyacjl24-29Fdp [facility]ro[facility] SystemComment on above:Performed By: #### CH8 ####S PATHOLOGY CQBNJYHWTU4926 [place], Creatinine [Mass/Vol]0.45 mg/dLLow0.60-1.20The [facility], Operated By [facility] HealthHealth SystemComment on above:Performed By: #### CH8 ####S PATHOLOGY DWJBECOXPB5434 [place], [address]QWPVAQJNE GFR (CKD-EPI)112 mL/min/1.73sqmNormal >=60The [facility] HospitalroHealth SystemComment on above:Result Comment: 2020 CKD EPI Equation using Creatinine without RaceComment: Estimated glomerular filtration rate (eGFR) is calculated without a race coefficient. Values should be interpreted in the context of the patient's full clinical presentation.Reference:1. Cooper C, Liv M, Karyn VILCHIS, et al.. A Unifying Approach for GFR Estimation: Recommendations of the NKF-ASN Task Force on Reassessing the Inclusion of Race in Diagnosing Kidney Disease. [place] Journal of Kidney Diseases 2021;79(2):26 8-88.e1.2. N Engl J Med 1 Vol. 385 Issue 19 Pages 1776-4723Performed By: #### CH8 ####[facility] PATHOLOGY BVDOMRYRJI4024 [place], [place], Glucose [Mass/Vol]158 mg/sQObeb57-526Nfy [facility]ro[facility] SystemComment on above: Performed By: #### CH8 ####[facility] PATHOLOGY AVSTGSZXDW3231 [place], [address]Woaporpov [Moles/Vol]3.5 mmol/LNormal3.5-5.0The [facility]roHealth SystemComment on above:Performed By: #### CH8 ####[facility] PATHOLOGY RMHIEZZOCM3512 [place], [address]Fmjguj [Moles/Vol]143 mmol/KGlwosk179-968Kuw [facility]ro[facility] SystemComment on above:Performed By: #### CH8 ####[facility] PATHOLOGY AIVHBALBJU1384 [place], [address]Twzw nitrogen [Mass/Vol]14 mg/dLNormal7-25The [facility] SystemComment on above: Performed By: #### CH8 ####[facility] PATHOLOGY OXMBTJDBQO2271 [place], [address]Jwzns gap [Moles/Vol]10 mmol/PGbdhuo06-33Yis [facility] SystemComment on above:Performed By: #### CH8, MG, PHOS ####[facility] PATHOLOGY MDVVFEAJEB4526 [place], [address]Zijjzxn [Mass/Vol]8.1 mg/dLLow8.6-10.3The [facility] SystemComment on above:Performed By: #### HUBER8 MG, PHOS ####[facility] PATHOLOGY CEGVXSIHYO8855 [place], [address]Nowqgcrk [Moles/Vol]106 mmol/LXsdlqr26-457Nqz [facility]ro[facility] SystemComment on above:Performed By: #### CH8, MG, PHOS ####[facility] PATHOLOGY FEFQNMYGMT9236 [place], [address]DM7 [Moles/Vol]31 mmol/VYvsxyo93-83Xot [facility] SystemComment on above:Performed By: #### HUBER8MG, PHOS ####[facility] PATHOLOGY BCVFDWPDGU1128 [place], [address]Bwlljglbxx [Mass/Vol]0.44 mg/dLLow0.60-1.20The [facility], Operated By [facility] HealthHealth SystemComment on above:Performed By: #### HUBER8 MG, PHOS ####[facility] PATHOLOGY QZNSTKTABG0586 [place], [address]UAOYXMJTC GFR (CKD-EPI)113 mL/min/1.73sqmNormal>=60The [facility] SystemComment on above: Result Comment: 2020 CKD EPI Equation using Creatinine without RaceComment: Estimated glomerular filtration rate (eGFR) is calculated without a race coefficient. Values should be interpreted in the context of the patient's full clinical presentation.Reference:1. Cooper C, Liv M, Karyn VILCHIS, et al.. A Unifying Approach for GFR Estimation: Recommendations of the NKF-ASN Task Force on Reassessing the Inclusion of Race in Diagnosing Kidney Disease. [place] Journal of Kidney Diseases 2021;79(2):268-88.e1.2. N Engl J Med 2020 Vol. 385 Issue 19 Pages 5698-1019Performed By: #### CH8 MG, PHOS ####[facility] PATHOLOGY PKZJBNREGN3820 [place], [address]Cdahtld [Mass/Vol]136 mg/qIXpco67-416Cua [facility] SystemComment on above:Performed By: #### MG GARRIDO PHOS ####S PATHOLOGY BURBGBIVVH4444 [place], [place], [address] Potassium [Moles/Vol]2.9 mmol/LLow3.5-5.0The [facility] SystemComment on above:Performed By: #### MG GARRIDO PHOS ####S PATHOLOGY CCAXFDAZWW8278 [place], [address]Qxvbvq [Moles/Vol]144 mmol/LNormal 136-145The [facility] SystemComment on above:Performed By: #### MG RADHIKA, BILL ####S PATHOLOGY AAVDLVAEUU6012 [place], [address]Texy nitrogen [Mass/Vol]14 mg/dLNormal7-25The [facility] SystemComment on above: Performed By: ###MG SALAZAR PHOS ####[facility] PATHOLOGY MMCLDTJMSG8135 [place], [address]Dxkeo metabolic 2000 panelon 83-89-0076Ayfgj gap [Moles/Vol]15 mmol/L10 - 20THE [facility] SYSTEMCalcium [Mass/Vol]8.0 mg/dLLow 8.6 - 10.3 mg/dLTHE [facility] SYSTEMChloride [Moles/Vol]104 mmol/L98 - 107 mmol/LTHE [facility] SYSTEMCO2 [Moles/Vol]28 mmol/L21 - 31 mmol/LTHE [facility] SYSTEMCreatinine [Mass/Vol]0.45 mg/dLLow0.60 - 1.20 mg/dLTHE [facility] SYSTEMGFR/1.73 sq M.predicted CKD-EPI (S/P/Bld) [Vol rate/Area]112- PINFTHE [facility] SYSTEMGlucose [Mass/Vol]158 mg/zRQrkz13 - 109 mg/dLTHE [facility] SYSTEMInterpretation and review of laboratory resultsAbnormalTHE [facility] SYSTEMPotassium [Moles/Vol]3.5 mmol/L3.5 - 5.0 mmol/LTHE [facility] SYSTEMSodium [Moles/Vol]143 mmol/L136 - 145 mmol/LTHE [facility] SYSTEMUrea nitrogen [Mass/Vol]14 mg/dL7 - 25 mg/dLTHE [facility] SYSTEMTHE [facility] SYSTEMAnion gap [Moles/Vol]10 mmol/L10 - 20THE [facility] SYSTEMCalcium [Mass/Vol]8.1 mg/dLLow8.6 - 10.3 mg/dLTHE [facility] SYSTEMChloride [Moles/Vol] 106 mmol/L98 - 107 mmol/LTHE [facility] SYSTEMCO2 [Moles/Vol]31 mmol/L21 - 31 mmol/LTHE [facility] SYSTEMCreatinine [Mass/Vol]0.44 mg/dLLow0.60 - 1.20 mg/dL THE [facility] SYSTEMGFR/1.73 sq M.predicted CKD-EPI (S/P/Bld) [Vol rate/Area] 113- PINFTHE [facility] SYSTEMGlucose [Mass/Vol]136 mg/bZHilt60 - 109 mg/dLTHE [facility] SYSTEMInterpretation and review of laboratory resultsAbnoLakeHealth Beachwood Medical Center [facility] SYSTEMPotassium [Moles/Vol]2.9 mmol/LLow3.5 - 5.0 mmol/LTHE [facility] SYSTEMSodium [Moles/Vol]144 mmol/L136 - 145 mmol/LTHE [facility] SYSTEMUrea nitrogen [Mass/Vol]14 mg/dL7 - 25 mg/dLTHE [facility] SYSTEMCBC panel Auto (Bld)on 50-38-5595Vlzejpivbff distribution width (RBC) [Ratio]15.4 % High11.5 - 14.5 %THE [facility] SYSTEMHematocrit (Bld) [Volume fraction]24.2 % Low36.0 - 46.0 %THE [facility] SYSTEMHemoglobin (Bld) [Mass/Vol]8.0 g/dLLow12.0 - 15.0 g/dLTHE [facility] SYSTEMInterpretation and review of laboratory resultsAbnoLakeHealth Beachwood Medical Center [facility] SYSTEMMCH (RBC) [Entitic mass]29.6 pg26.0 - 34.0 pgTHE [facility]RO[facility]ALTH SYSTEMMCHC (RBC) [Mass/Vol]33.1 g/dL32.0 - 35.9 g/dLTHE [facility] SYSTEMMCV (RBC) [Entitic vol]90 fL80 - 100 fLTHE [facility] Platelet mean volume (Bld) [Entitic vol]9.3 fL7.5 - 11.2 fLTHE [facility]ALTH SYSTEMPlatelets (Bld) [#/Vol]185 10*3/uL150 - 400 K/uLTHE [facility]ALTH SYSTEMRBC (Bld) [#/Vol]2.70 10*6/uLLowTHE [facility]ALTH SYSTEMWBC (Bld) [#/Vol]11.4 10*3/uL 4.5 - 11.5 K/uLTHE [facility] SYSTEMTHE [facility]ALTH SYSTEMCOMPLETE BLOOD COUNT on 55-06-1142Rvvyvfkbeqa distribution width (RBC) [Ratio]15.4 %High11.5-14.5The [facility] SystemComment on above:Performed By: #### CBC ####[facility] PATHOLOGY BIQGKQNCJS[address] [place] [address], [address]Itvfbffbzs (Bld) [Volume fraction]24.2 %Low36.0-46.0The [facility] SystemComment on above: Performed By: #### CBC ####[facility] PATHOLOGY RLQWDRALDQ7[address] [place] [address], [address]Nmdamhafsz (Bld) [Mass/Vol]8.0 g/dLLow12.0-15.0The [facility] SystemComment on above:Performed By: #### CBC ####[facility] PATHOLOGY CRSRDOYEDV[address] [place] [address], [address]ARB (RBC) [Entitic mass]29.6 ocHowpan33.0-34.0The [facility] SystemComment on above:Performed By: #### CBC ####[facility] PATHOLOGY VNZXONIAPT[address] [place] [address], [address]DFOT (RBC) [Mass/Vol]33.1 g/wKQoitqx30.0-35.9The [facility] System Comment on above:Performed By: #### CBC ####[facility] PATHOLOGY UCBXYPDPAT[address] [place] [address], [address]GYS (RBC) [Entitic vol]90 fLNormal 80-100The [facility] SystemComment on above:Performed By: #### CBC ####S PATHOLOGY IEKDLDDJQY4470 [place], [address]Jshxpzgq mean volume (Bld) [Entitic vol]9.3 fLNormal7.5-11.2The [facility] SystemComment on above:Performed By: #### CBC ####S PATHOLOGY LRLRWBWCEG[address] [place] [address], [address]Fdsdlvagy (Bld) [#/Vol]185 10*3/rRIfcnww577-617Pjd [facility]roHealth SystemComment on above:Performed By: #### CBC ####S PATHOLOGY UCEFCZRHTZ[address] [place] [address], [address]XMQ (Bld) [#/Vol]2.70 10*6/uLLow4.00-5.20The [facility] HospitalroHealth SystemComment on above:Performed By: #### CBC ####S PATHOLOGY QCHAHVIRSP252[address] [place] [address], [address]RJA (Bld) [#/Vol]11.4 10*3/uLNormal4.5-11.5The [facility] HospitalroHealth SystemComment on above: Performed By: #### CBC ####S PATHOLOGY YMDUOQUDUW[address] [place] [address], [address]Reuk Plan Noteon 20-19-2844Uxtxkkgevvhtg Authentication Interface Message TextNoAtrium Health Pineville Rehabilitation HospitalroHealth SystemConsultson 37-68-6979Fungslvdmzapq Authentication Interface Message TextNoAtrium Health Pineville Rehabilitation HospitalroMetrohealth Main [facility] Center SystemGLUCOSE, FINGERSTICK-IN OFFICEon 29-29-6594Hrpszac [Mass/Vol] 177 mg/vWGuxr44 - 110 mg/dLTHE [facility] SYSTEMInterpretation and review of laboratory resultsAbnormHealthSouth Medical CenterROSOUTHWEST GENER[facility] SYSTEMTHE [facility] SYSTEMGlucose [Mass/Vol]298 mg/hTNrdh04-669Tzd [facility] SystemComment on above:Performed By: #### 46415 ####NURSING GLUCOSE ZUZLJUP1954 [place], [place], [address]Pybespt [Mass/Vol]298 mg/wGQqhl23 - 110 mg/dLTHE [facility] Interpretation and review of laboratory resultsAbnormCorey HospitalE [facility]ITALROSOUTHWE[facility] SYSTEMTHE [facility]OS[facility]ITALROHEALTH SYSTEMGlucose [Mass/Vol]227 mg/pWPwiw57-440Xwq [facility] HospitalroMetrohealth Main [facility] System Comment on above:Performed By: #### 92384 ####NURSING GLUCOSE NVGKTIX39[address] [place] [address], [address]Yrvfgmt [Mass/Vol]227 mg/gMGatd94 - 110 mg/dLTHE [facility] SYSTEMInterpretation and review of laboratory results AbnormalTHE [facility]OSPITALROSOUTHWEST GENERAL [facility]ENTER SYSTEMTHE [facility] SYSTEMGlucose [Mass/Vol]117 mg/dL Oxpd67-814Aub [facility] SystemComment on above:Performed By: #### 25874 ####NURSING GLUCOSE XUPXEOA[address] [place] [address], [address]Zrvgcsu [Mass/Vol]72 mg/cOBwiuhd96-374Kad [facility] SystemComment on above:Performed By: #### 59780 ####NURSING GLUCOSE RJRAPCG[address] [place] [address], [address]Bjratur [Mass/Vol]117 mg/qSSasn54 - 110 mg/dLTHE [facility]ITALROSOUTHWE[facility] SYSTEM Interpretation and review of laboratory resultsAbnormCorey HospitalE [facility] SYSTEMTHE [facility]ITALROHEALTH SYSTEMGlucose [Mass/Vol]72 mg/dL68 - 110 mg/dLTHE [facility]ITALROHEALTH SYSTEMInterpretation and review of laboratory resultsNormOhioHealth Shelby HospitalTHE [facility]ITALROHEALTH SYSTEMGlucose [Mass/Vol]69 mg/tDMucsld82-107Mjr [facility] SystemComment on above:Performed By: #### 19805 ####NURSING GLUCOSE ADWBKVD[address] [place] [address], [address]Pcpquxb [Mass/Vol]69 mg/dL68 - 110 mg/dLTHE [facility]OSPITALROSOUTHWEST GENER[facility]ENTER SYSTEMInterpretation and review of laboratory results NormalTHE [facility]OSPITALROSOUTHWEST GENER[facility] SYSTEMTHE [facility]OSPITALROSOUTHWEST GENERAL [facility]ENTER SYSTEMMAGNESIUMon 07-01-2023 Magnesium [Mass/Vol]1.9 mg/dLNormal1.9-2.7The [facility] SystemComment on above:Result Comment: Note updated reference ranges.Performed By: #### CH8, MG, PHOS ####[facility] PATHOLOGY KYWMMVWMVJ[address] [place] [address], [address] Magnesium [Mass/Vol]1.9 mg/dL1.9 - 2.7 mg/dLTHE [facility] SYSTEMNo Panel Informationon 87-40-4688Eeusamzaryrvhf and review of laboratory resultsNormOhioHealth Shelby HospitalTHE [facility] SYSTEMPHOSPHORUSon 88-28-9388Jebmcqfnk [Mass/Vol]3.1 mg/dLNormal2.5-5.0The [facility] SystemComment on above:Result Comment: Note updated reference ranges.Performed By: #### CH8, MG, PHOS ####[facility] PATHOLOGY SYNGMUKADC1855 [place], [address]Gllkitlmf [Mass/Vol]3.1 mg/dL2.5 - 5.0 mg/dLTHE [facility] SYSTEMProgress Noteson 45-54-8795Qkkvftlhtsuww Authentication Interface Message TextNoMemorial Hospital SystemTranscription Authentication Interface Message TextCatskill Regional Medical Center SystemTranscription Authentication Interface Message TextCatskill Regional Medical Center SystemBASIC METABOLIC PANELon 88-15-6721Gxilv gap [Moles/Vol]12 mmol/HUvdoxj66-25Owd [facility] SystemComment on above:Performed By: #### PHOS, CH8, HEPATIC, MG ####[facility] PATHOLOGY KWKLXONLDQ2051 [place], [address]Mwtzray [Mass/Vol]7.8 mg/dLLow8.6-10.3The [facility] System Comment on above:Performed By: #### PHOS, CH8, HEPATIC, MG ####[facility] PATHOLOGY ZABPQQIWPH2037 [place], [address]Mtqusimp [Moles/Vol]112 mmol/OKnwv01-029Wke [facility] SystemComment on above:Performed By: #### PHOS, CH8, HEPATIC, MG ####[facility] PATHOLOGY FYKJWZDOQG7231 [place], [address]FD1 [Moles/Vol]30 mmol/QNyxdmz28-71Ihg [facility] SystemComment on above:Performed By: #### PHOS, CH8, HEPATIC, MG ####[facility] PATHOLOGY XGNMKVCCKV3205 [place], [address]Vvbkryuvkg [Mass/Vol] 0.44 mg/dLLow0.60-1.20The [facility] SystemComment on above:Performed By: #### PHOS, CH8, HEPATIC, MG ####[facility] PATHOLOGY KTTBULVNGN9282 [place], [address]MBLEVVTQN GFR (CKD-EPI)113 mL/min/1.73sqmNormal >=60The [facility] SystemComment on above:Result Comment: 2020 CKD EPI Equation using Creatinine without RaceComment: Estimated glomerular filtration rate (eGFR) is calculated without a race coefficient. Values should be interpreted in the context of the patient's full clinical presentation.Reference:1. Cooper C, Liv M, Karyn VILCHIS, et al.. A Unifying Approach for GFR Estimation: Recommendations of the NKF-ASN Task Force on Reassessing the Inclusion of Race in Diagnosing Kidney Disease. [place] Journal of Kidney Diseases 2021;79(2):26 8-88.e1.2. N Engl J Med 1 Vol. 385 Issue 19 Pages 5930-3948Performed By: #### PHOS, CH8, HEPATIC, MG ####[facility] PATHOLOGY QTHMGEPCGW4168 [place], [address]Vevratg [Mass/Vol]128 mg/jJSggy65-059Vkd [facility] SystemComment on above:Performed By: #### PHOS, CH8, HEPATIC, MG ####[facility] PATHOLOGY ZTTVNPSRAT9138 [place], Potassium [Moles/Vol]3.1 mmol/LLow3.5-5.0The [facility] SystemComment on above: Performed By: #### PHOS, CH8, HEPATIC, MG ####[facility] PATHOLOGY VTPUMRMMDZ5744 [place], [address]Iwkewj [Moles/Vol]151 mmol/LHigh 136-145The [facility] SystemComment on above:Performed By: #### PHOS, CH8, HEPATIC, MG ####[facility] PATHOLOGY ZNXUYWMUXU1261 [place], [address]Luzc nitrogen [Mass/Vol]15 mg/dLNormal7-25The [facility] Comment on above:Performed By: #### PHOS, CH8, HEPATIC, MG ####[facility] PATHOLOGY WPTWDZBHXA3539 [place], [address]Zueps metabolic 2000 panelOrdered By: Eva Thomas on 35-38-4257Vnsqc gap [Moles/Vol]12 mmol/L10 - 20THE [facility] SYSTEMCalcium [Mass/Vol]7.8 mg/dLLow8.6 - 10.3 mg/dLTHE [facility] SYSTEMChloride [Moles/Vol]112 mmol/LHigh98 - 107 mmol/LTHE [facility] SYSTEMCO2 [Moles/Vol]30 mmol/L21 - 31 mmol/LTHE [facility] Creatinine [Mass/Vol]0.44 mg/dLLow0.60 - 1.20 mg/dLTHE [facility] GFR/1.73 sq M.predicted CKD-EPI (S/P/Bld) [Vol rate/Area]113- PINFTHE METROSOUTHWEST GENERAL HEALTH CENTER SYSTEMGlucose [Mass/Vol]128 mg/yOBndi68 - 109 mg/dLTHE [facility] SYSTEMInterpretation and review of laboratory resultsAbnoFrye Regional Medical Center Alexander CampusROHEALTH SYSTEMPotassium [Moles/Vol]3.1 mmol/LLow3.5 - 5.0 mmol/LTHE [facility] Sodium [Moles/Vol]151 mmol/XWobp039 - 145 mmol/LTHE [facility] SYSTEMUrea nitrogen [Mass/Vol]15 mg/dL7 - 25 mg/dLTHE [facility] SYSTEMTHE [facility] SYSTEMCBC panel Auto (Bld)on 71-01-7495Wcasusemqoq distribution width (RBC) [Ratio]16.3 %High11.5 - 14.5 %THE [facility] SYSTEMHematocrit (Bld) [Volume fraction]24.4 %Low36.0 - 46.0 %THE [facility] SYSTEMHemoglobin (Bld) [Mass/Vol] 8.1 g/dLLow12.0 - 15.0 g/dLTHE [facility] SYSTEMInterpretation and review of laboratory resultsAbGuthrie Cortland Medical CenterROSOUTHWEST GENERAL [facility]ALTH CENTER SYSTEMMCH (RBC) [Entitic mass]29.7 pg 26.0 - 34.0 pgTHE [facility]RO[facility]ALTH SYSTEMMCHC (RBC) [Mass/Vol]33.0 g/dL32.0 - 35.9 g/dLTHE [facility]ITALROHEALTH SYSTEMMCV (RBC) [Entitic vol]90 fL80 - 100 fLTHE [facility] SYSTEMPlatelet mean volume (Bld) [Entitic vol]8.9 fL7.5 - 11.2 fLTHE [facility] SYSTEMPlatelets (Bld) [#/Vol]150 10*3/uL150 - 400 K/uLTHE [facility]ALTH SYSTEMRBC (Bld) [#/Vol]2.71 10*6/uLLowTHE [facility]RO[facility]ALTH SYSTEMWBC (Bld) [#/Vol]10.3 10*3/uL 4.5 - 11.5 K/uLTHE [facility] SYSTEMTHE [facility]PITALROSOUTHWEST GENERAL [facility]ALTH CENTER SYSTEMCOMPLETE BLOOD COUNT on 59-19-7798Xypaknwbyfo distribution width (RBC) [Ratio]16.3 %High11.5-14.5The [facility] SystemComment on above:Performed By: #### CBC ####[facility] PATHOLOGY SWLIAXVONR[address] [place] [address], [address]Sqxwfbkvro (Bld) [Volume fraction]24.4 %Low36.0-46.0The [facility] SystemComment on above: Performed By: #### CBC ####[facility] PATHOLOGY YXCNQCABNK[address] [place] [address], [address]Jjuuncoyad (Bld) [Mass/Vol]8.1 g/dLLow12.0-15.0The [facility] SystemComment on above:Performed By: #### CBC ####[facility] PATHOLOGY QQQAQLSKPC6924[address] [place] [address], [address]RNM (RBC) [Entitic mass]29.7 hwZamnaj69.0-34.0The [facility] SystemComment on above:Performed By: #### CBC ####[facility] PATHOLOGY WSLGTSPZXB[address] [place] [address], [address]YKHV (RBC) [Mass/Vol]33.0 g/hTVkaaam93.0-35.9The [facility] System Comment on above:Performed By: #### CBC ####[facility] PATHOLOGY SIWPRMLKJV415[address] [place] [address], [address]SOX (RBC) [Entitic vol]90 fLNormal 80-100The [facility] HospitalroHealth SystemComment on above:Performed By: #### CBC ####[facility] PATHOLOGY RAJTVAXQKT00[address] [place] [address], [address]Crmeluvy mean volume (Bld) [Entitic vol]8.9 fLNormal7.5-11.2The [facility] HospitalroHealth SystemComment on above:Performed By: #### CBC ####[facility] PATHOLOGY OXQTIAYXWN90[address] [place] [address], [address]Cerccxjcb (Bld) [#/Vol]150 10*3/nKFgxcbx643-200Uoo [facility] HospitalroHealth SystemComment on above:Performed By: #### CBC ####[facility] PATHOLOGY WOBDXEQJPY[address] [place] [address], [address]GAZ (Bld) [#/Vol]2.71 10*6/uLLow4.00-5.20The [facility] HospitalroHealth SystemComment on above:Performed By: #### CBC ####[facility] PATHOLOGY TFLTMEMSOI[address] [place] [address], [address]TDQ (Bld) [#/Vol]10.3 10*3/uLNormal4.5-11.5The [facility] HospitalroHealth SystemComment on above: Performed By: #### CBC ####[facility] PATHOLOGY HFXLDCGDTE[address] [place] [address], [address]IOBPYYH, FINGERSTICK-IN OFFICEon 52-04-6464Afslyqv [Mass/Vol]250 mg/cQNngm72-375Iej [facility] HospitalroHealth SystemComment on above:Performed By: #### 10409 ####NURSING GLUCOSE QZGKLLL0011 [place], [place], [address]Kyttper [Mass/Vol]250 mg/iKHyqu66 - 110 mg/dLTHE [facility]OSPITALROSOUTHWEST [facility] SYSTEM Interpretation and review of laboratory resultsAbnormalTHE [facility] SYSTEMTHE [facility]ALTH SYSTEMGlucose [Mass/Vol]199 mg/tEDkfy23-502Iby [facility] Hospitalro[facility] System Comment on above:Performed By: #### 23407 ####NURSING GLUCOSE CAXFXMU[address] [place] [address], [address]Usrjyqn [Mass/Vol]199 mg/yPKjeg04 - 110 mg/dLTHE [facility]OSPITALROHEALTH SYSTEMInterpretation and review of laboratory results AbnormalTHE [facility]OSPITALROHEALTH SYSTEMTHE METRO[facility]ALTH SYSTEMGlucose [Mass/Vol]134 mg/dL Jkmu06-329Miw [facility] SystemComment on above:Performed By: #### 13035 ####NURSING GLUCOSE NKJUXIE[address] [place] [address], [address]Yloqsni [Mass/Vol]134 mg/qNNsdx87 - 110 mg/dLTHE [facility]OSPITALROSOUTHWEST GENER[facility]ENTER SYSTEMInterpretation and review of laboratory resultsAbnormOhioHealth Shelby HospitalTHE [facility] Glucose [Mass/Vol]114 mg/lPXyqy19-397Ywx [facility] SystemComment on above: Performed By: #### 88373 ####NURSING GLUCOSE SNXLXYO[address] [place] [address], [address]Tjjkiof [Mass/Vol]114 mg/iHTkpc31 - 110 mg/dLTHE [facility]OSPITALROSOUTHWEST [facility] SYSTEMInterpretation and review of laboratory resultsAbnormHealthSouth Medical CenterROMOHAWK VALLEY PSYCHIATRIC CENTERTHE METROSOUTHWEST GENERAL HEALTH CENTER SYSTEMGlucose [Mass/Vol]223 mg/kYFyiu16-278Alb [facility] SystemComment on above:Result Comment: Follow ProtocolPerformed By: #### [id number] ####NURSING GLUCOSE [id number] [place] [address], [id number] FUNCTION PANELon 01-19-8232Ljecqoh [Mass/Vol]2.9 g/dLLow3.5-5.7The [facility] SystemComment on above:Order Comment: Note updated reference ranges. Performed By: #### PHOS, CH8, HEPATIC, MG ####[facility] [id number] [place], [id number] IU/QHozeld52-635Pma [facility] SystemComment on above:Order Comment: Note updated reference ranges.Performed By: #### PHOS, CH8, HEPATIC, MG ####[facility] [id number] [place], [id number] [Catalytic activity/Vol]12 U/LNormal7-52The [facility] SystemComment on above:Order Comment: Note updated reference ranges. Performed By: #### PHOS, CH8, HEPATIC, MG ####[facility] YOYQWPMEKJ2161 [place], [address]DSQ [Catalytic activity/Vol]7 U/LLow 13-39The [facility]roHealth SystemComment on above:Order Comment: Note updated reference ranges.Performed By: #### PHOS, CH8, HEPATIC, MG ####[facility] XXBIBPGYFS6186 [place], [address]Wfvvsxnsc [Mass/Vol]1.5 mg/dLHigh0.3-1.0The [facility] HospitalroHealth SystemComment on above:Order Comment: Note updated reference ranges.Performed By: #### PHOS, CH8, HEPATIC, MG ####[facility] TUFCKXOXGR5653 [place], Bilirubin.direct [Mass/Vol]0.31 mg/dLHigh0.03-0.18The [facility] HospitalroMetrohealth [facility] SystemComment on above:Order Comment: Note updated reference ranges.Performed By: #### PHOS, CH8, HEPATIC, MG ####[facility] RQSRKBENIB[address] [place] [address], [address]Hcscage [Mass/Vol]4.9 g/dLLow6.0-8.3The [facility] HospitalroMetrohealth Main Campus [facility] Center SystemComment on above:Order Comment: Note updated reference ranges.Performed By: #### PHOS, CH8, HEPATIC, MG ####[facility] PATH[facility] GROGHHSNGK[address] [place] [address], [address]Hnxfqvc [Mass/Vol]2.9 g/dLLow3.5 - 5.7 g/dLTHE [facility] ALP [Catalytic activity/Vol]60 U/LTHE [facility]ALTH SYSTEMALT [Catalytic activity/Vol]12 U/LTHE [facility]ALTH SYSTEMAST [Catalytic activity/Vol]7 U/LLowTHE [facility]ALTH SYSTEMBilirubin [Mass/Vol]1.5 mg/dLHigh0.3 - 1.0 mg/dLTHE [facility]ALTH SYSTEMBilirubin.direct [Mass/Vol]0.31 mg/dLHigh0.03 - 0.18 mg/dLTHE [facility]ALTH SYSTEMProtein [Mass/Vol]4.9 g/dLLow6.0 - 8.3 g/dLTHE [facility]ALTH SYSTEMTHE METROHEALTH SYSTEMLACTIC ACIDon 16-29-8010GP LACT0.7 mmol/LNormal 0.5-1.6The [facility] SystemComment on above:Performed By: #### LACT ####[facility] PATH[facility] XRYSWJMPYV[address] [place] [address], Interpretation and review of laboratory resultsNoUC Medical Center SYSTEM Work Phone: Lactate [Moles/Vol]0.7 mmol/L0.5 - 1.6 mmol/LTHE [facility] Work Phone: [facility] Work Phone: MAGNESIUMon [phone] [Mass/Vol]1.7 mg/dLLow 1.9-2.7The [facility] SystemComment on above:Result Comment: Note updated reference ranges.Performed By: #### PHOS, CH8, HEPATIC, MG ####[facility] PWPDYCWBYR[address] [place] [address], [address]Dwexlomgc [Mass/Vol]1.7 mg/dLLow1.9 - 2.7 mg/dLTHE [facility] SYSTEMNo Panel Informationon 06-30-2023 Interpretation and review of laboratory resultsAbnoFisher-Titus Medical CenterTHE [facility]ITALROSOUTHWE[facility] SYSTEMPHOSPHORUSon 22-97-9370Fqtlpmlyn [Mass/Vol]2.4 mg/dLLow 2.5-5.0The [facility] SystemComment on above:Result Comment: Note updated reference ranges.Performed By: #### PHOS, CH8, HEPATIC, MG ####[facility] KBBDKJQCCC[address] [place] [address], [address]Xttczhuhf [Mass/Vol]2.4 mg/dLLow2.5 - 5.0 mg/dLTHE [facility] SYSTEMProgress Noteson 06-30-2023 Lapping Machine Set Up Operator Authentication Interface Message TextNo[facility] Lapping Machine Set Up Operator Authentication Interface Message TextNo[facility] Lapping Machine Set Up Operator Authentication Interface Message TextNoMem[facility] Lapping Machine Set Up Operator Authentication Interface Message TextC[facility] System ANTI FXA-LMW HEPARINon 46-88-2841WZIZ FXA-LMW HEPARIN ASSAY0.17 IU/mLNormalThe [facility] SystemComment on above:Order Comment: The recommended therapeutic range for treatment of thrombosis with Low Molecular Weight Heparin is 0.5 - 1.0 IU/mLThe recommended range for VTE prophylaxis with Low Molecular Weight Hep rubén is 0.2 - 0.4 IU/mL.Performed By: #### JOAN ####[facility] PATHOLOGY QVHAZSIZGC[address] [place] [address], [address]UBL Heparin Chromogenic method Qn (PPP)0.17IU/mLTHE [facility]OSPITALROHEALTH SYSTEMTHE [facility]OSPITALROHEALTH SYSTEMTHE [facility]OSPITALROSOUTHWEST [facility] SYSTEM BASIC METABOLIC PANELon 12-50-0405Aaywy gap [Moles/Vol]16 mmol/ADtezei00-06Trm [facility] SystemComment on above:Performed By: #### CH8 ####[facility] PATHOLOGY PKYSVOLSDG[address] [place] [address], [address]Gbjxpiu [Mass/Vol]8.0 mg/dLLow8.6-10.3The [facility] SystemComment on above:Performed By: #### CH8 ####[facility] PATHOLOGY CARWFAYBNG[address] [place] [address], Chloride [Moles/Vol]116 mmol/XVyoc23-123Iap [facility] SystemComment on above: Performed By: #### CH8 ####[facility] PATHOLOGY DYQRZOEQKH[address] [place] [address], [address]XX7 [Moles/Vol]27 mmol/QKjdljy65-04Zrx [facility] SystemComment on above:Performed By: #### CH8 ####[facility] PATHOLOGY QHNWFJJCNE8[address] [place] [address], [address]Kurzzprfmv [Mass/Vol]0.59 mg/dLLow 0.60-1.20The [facility] SystemComment on above:Performed By: #### CH8 ####[facility] PATHOLOGY VUPEHUGIDM[address] [place] [address], [address]JXOKCMNPH GFR (CKD-EPI)105 mL/min/1.73sqmNormal>=60The [facility] SystemComment on above: Result Comment: 2020 CKD EPI Equation using Creatinine without RaceComment: Estimated glomerular filtration rate (eGFR) is calculated without a race coefficient. Values should be interpreted in the context of the patient's full clinical presentation.Reference:1. Cooper C, Liv M, Karyn VILCHIS, et al.. A Unifying Approach for GFR Estimation: Recommendations of the NKF-ASN Task Force on Reassessing the Inclusion of Race in Diagnosing Kidney Disease. [place] Journal of Kidney Diseases 2021;79(2):268-88.e1.2. N Engl J Med 1 Vol. 385 Issue 19 Pages 6352-7760Performed By: #### CH8 ####[facility] PATHOLOGY RPHTUIXFZY5231 [place], [address]Dpwvzif [Mass/Vol]309 mg/pCLuod54-809 The [facility] SystemComment on above:Performed By: #### CH8 ####[facility] PATHOLOGY UNXVREAUAT9175 [place], [address]Kvfzxadtr [Moles/Vol] 5.8 mmol/LHigh3.5-5.0The [facility] SystemComment on above:Performed By: #### CH8 ####[facility] PATHOLOGY DRMLXXDLGC4410 [place], Sodium [Moles/Vol]153 mmol/RPsts219-921Ybx [facility] SystemComment on above: Performed By: #### CH8 ####[facility] PATHOLOGY WSGLTOQBRV2697 [place], [address]Ribs nitrogen [Mass/Vol]24 mg/dLNormal7-25The [facility] SystemComment on above:Performed By: #### CH8 ####[facility] PATHOLOGY NSKWKPGWTO6452 [place], [address]Gzvxq gap [Moles/Vol]12 mmol/KYfdtvp42-18Bup [facility] SystemComment on above:Performed By: #### CH8, MG, TRIG, PHOS ####S PATHOLOGY HYQWKIDPJY9070 [place], [address]Cwwwufo [Mass/Vol]8.4 mg/dLLow8.6-10.3The [facility] SystemComment on above:Performed By: #### CH8, MG, TRIG, PHOS ####[facility] PATH[facility] XOZZXSMFTF4721 [place], [address]Wllzbicm [Moles/Vol]120 mmol/LHigh 98-107The [facility] SystemComment on above:Performed By: #### CH8, MG, TRIG, PHOS ####[facility] PATHOLOGY UOBGOCQBPF9389 [place], CO2 [Moles/Vol]25 mmol/ZNwwwlm94-49Nsx [facility]roHealth SystemComment on above: Performed By: #### CH8, MG, TRIG, PHOS ####[facility] PATHOLOGY BWAZLXRLDD2070 [place], [address]Lnpvwhnrxu [Mass/Vol]0.70 mg/dLNormal 0.60-1.20The [facility] SystemComment on above:Performed By: #### CH8, MG, TRIG, PHOS ####[facility] PATHOLOGY YPDEZCWRFX4483 [place], [address]TUUPZAFPP GFR (CKD-EPI)101 mL/min/1.73sqmNormal>=60The [facility] SystemComment on above:Result Comment: 2020 CKD EPI Equation using Creatinine without RaceComment: Estimated glomerular filtration rate (eGFR) is calculated without a race coefficient. Values should be interpreted in the context of the patient's full clinical presentation.Reference:1. Cooper C, Liv M, Karyn VILCHIS, et al.. A Unifying Approach for GFR Estimation: Recommendations of the NKF-ASN Task Force on Reassessing the Inclusion of Race in Diagnosing Kidney Disease. [place] Journal of Kidney Diseases 2021;79(2):268-88.e1.2. N Engl J Med 2020 Vol. 385 Issue 19 Pages 6434-3254Performed By: #### CH8, MG, TRIG, PHOS ####[facility] PATHOLOGY AKPYPAPQGL6747 [place], [address]Fkrpvbi [Mass/Vol]247 mg/kHSywf80-083Ptl [facility] SystemComment on above:Performed By: #### CH8, MG, TRIG, PHOS ####[facility] PATHOLOGY LGGCZYXHUW7910 [place], [address]Grwxpfqmt [Moles/Vol]3.5 mmol/LNormal3.5-5.0The [facility] SystemComment on above:Performed By: #### RADHIKA, MG, TRIG, PHOS ####[facility] PATHOLOGY RACKCDSJRT1176 [place], [address]Dkucov [Moles/Vol]153 mmol/NSzvr274-801Dhq [facility] HospitalroHealth SystemComment on above: Performed By: #### RADHIKA, MG, TRIG, PHOS ####[facility] PATHOLOGY UJWOVTVOZD5143 [place], [address]Obpy nitrogen [Mass/Vol]30 mg/dLHigh 7-25The [facility] HospitalroHealth SystemComment on above:Performed By: #### RADHIKA, MG, TRIG, PHOSangeetha ####[facility] PATHOLOGY XAAJREIHJC7119 [place], [place], Basic metabolic 2000 panelOrdered By: River Ambrose on 83-88-0207Sxtda gap [Moles/Vol]16 mmol/L10 - 20THE [facility] SYSTEMCalcium [Mass/Vol]8.0 mg/dLLow 8.6 - 10.3 mg/dLTHE [facility]ALTH SYSTEMChloride [Moles/Vol]116 mmol/LHigh98 - 107 mmol/LTHE [facility] SYSTEMCO2 [Moles/Vol]27 mmol/L21 - 31 mmol/LTHE [facility] SYSTEMCreatinine [Mass/Vol]0.59 mg/dLLow0.60 - 1.20 mg/dLTHE METRO[facility]ALTH SYSTEMGFR/1.73 sq M.predicted CKD-EPI (S/P/Bld) [Vol rate/Area]105- PINFTHE METRO[facility]ALTH SYSTEMGlucose [Mass/Vol]309 mg/gXBmei54 - 109 mg/dLTHE [facility] SYSTEMInterpretation and review of laboratory resultsAbnormalTHE [facility]ITALROHEALTH SYSTEMPotassium [Moles/Vol]5.8 mmol/LHigh3.5 - 5.0 mmol/LTHE [facility] SYSTEMSodium [Moles/Vol]153 mmol/BWqnk484 - 145 mmol/LTHE [facility] SYSTEMUrea nitrogen [Mass/Vol]24 mg/dL7 - 25 mg/dLTHE [facility]ALTH SYSTEMTHE [facility]ALTH SYSTEMBasic metabolic 2000 panelon 40-28-1435Ggywv gap [Moles/Vol]12 mmol/L10 - 20THE [facility] SYSTEMCalcium [Mass/Vol]8.4 mg/dLLow 8.6 - 10.3 mg/dLTHE [facility] SYSTEMChloride [Moles/Vol]120 mmol/LHigh98 - 107 mmol/LTHE [facility] SYSTEMCO2 [Moles/Vol]25 mmol/L21 - 31 mmol/LTHE [facility] SYSTEMCreatinine [Mass/Vol]0.70 mg/dL0.60 - 1.20 mg/dLTHE [facility]RO[facility]ALTH SYSTEMGFR/1.73 sq M.predicted CKD-EPI (S/P/Bld) [Vol rate/Area]101- PINFTHE METRO[facility]ALTH SYSTEMGlucose [Mass/Vol]247 mg/rCSzow28 - 109 mg/dLTHE [facility] SYSTEMPotassium [Moles/Vol]3.5 mmol/L3.5 - 5.0 mmol/LTHE [facility] SYSTEMSodium [Moles/Vol]153 mmol/WNydg349 - 145 mmol/LTHE [facility] Urea nitrogen [Mass/Vol]30 mg/dLHigh7 - 25 mg/dLTHE [facility]RO[facility]ALTH SYSTEMCBC panel Auto (Bld)on 02-74-0497Njlavgcxfqf distribution width (RBC) [Ratio]16.4 %High 11.5 - 14.5 %THE [facility]RO[facility]ALTH SYSTEMHematocrit (Bld) [Volume fraction]26.5 %Low 36.0 - 46.0 %THE [facility] SYSTEMHemoglobin (Bld) [Mass/Vol]9.0 g/dLLow12.0 - 15.0 g/dLTHE [facility]RO[facility]ALTH SYSTEMInterpretation and review of laboratory results AbnormalTHE METROHEALTH SYSTEMMCH (RBC) [Entitic mass]30.1 pg26.0 - 34.0 pgTHE METROHEALTH SYSTEMMCHC (RBC) [Mass/Vol]33.8 g/dL32.0 - 35.9 g/dLTHE METROHEALTH SYSTEMMCV (RBC) [Entitic vol]89 fL80 - 100 fLTHE METROHEALTH SYSTEMPlatelet mean volume (Bld) [Entitic vol]9.5 fL7.5 - 11.2 fLTHE METROHEALTH SYSTEMPlatelets (Bld) [#/Vol]149 10*3/xFEzo413 - 400 K/uLTHE METROHEALTH SYSTEMRBC (Bld) [#/Vol] 2.97 10*6/uLLowTHE [facility]PITALROHEALTH SYSTEMWBC (Bld) [#/Vol]10.6 10*3/uL4.5 - 11.5 K/uLTHE [facility]ALTH SYSTEMTHE [facility]RO[facility]ALTH SYSTEMCOMPLETE BLOOD COUNTon 73-71-8190Qaolfnjdrpb distribution width (RBC) [Ratio]16.4 %High11.5-14.5The [facility] SystemComment on above:Performed By: #### CBC ####[facility] PATHOLOGY EZAEVWNHNT[address] [place] [address], [address]Xqvssadocd (Bld) [Volume fraction]26.5 %Low36.0-46.0The [facility] SystemComment on above: Performed By: #### CBC ####[facility] PATHOLOGY LATQNUFZWC08[address] [place] [address], [address]Klxfdyehzf (Bld) [Mass/Vol]9.0 g/dLLow12.0-15.0The [facility] SystemComment on above:Performed By: #### CBC ####[facility] PATHOLOGY ANFSASWPOA0[address] [place] [address], [address]FDW (RBC) [Entitic mass]30.1 wsKpkeac35.0-34.0The [facility] SystemComment on above:Performed By: #### CBC ####[facility] PATHOLOGY IKTMOJPWSE[address] [place] [address], [address]MTFO (RBC) [Mass/Vol]33.8 g/uQWtpbmn54.0-35.9The [facility] System Comment on above:Performed By: #### CBC ####[facility] PATHOLOGY SHYGMFFERM[address] [place] [address], [address]SNY (RBC) [Entitic vol]89 fLNormal 80-100The [facility] SystemComment on above:Performed By: #### CBC ####[facility] PATHOLOGY YKGMCSXBIP[address] [place] [address], [address]Xchooiyx mean volume (Bld) [Entitic vol]9.5 fLNormal7.5-11.2The [facility] HospitalroHealth SystemComment on above:Performed By: #### CBC ####S PATHOLOGY LNKRQOIYNI5[address] [place] [address], [address]Beerymypi (Bld) [#/Vol]149 10*3/mJGhz883-859Dus [facility] HospitalroHealth SystemComment on above:Performed By: #### CBC ####S PATHOLOGY OZSGCWIPCD8[address] [place] [address], [address]QSC (Bld) [#/Vol]2.97 10*6/uLLow4.00-5.20The [facility] HospitalroHealth SystemComment on above:Performed By: #### CBC ####S PATHOLOGY QOHYRRUWFX[address] [place] [address], [address]QDV (Bld) [#/Vol]10.6 10*3/uLNormal4.5-11.5The [facility] HospitalroHealth SystemComment on above: Performed By: #### CBC ####[facility] PATHOLOGY XHRSFKZVTR[address] [place] [address], [address]Dhynibwmmo 79-67-5695Inbqdzcnanjii Authentication Interface Message TextNormCentra Virginia Baptist HospitalroHealth SystemTranscription Authentication Interface Message TextNoAtrium Health Pineville Rehabilitation HospitalroHealth SystemTranscription Authentication Interface Message TextNoAtrium Health Pineville Rehabilitation HospitalroHealth SystemTranscription Authentication Interface Message TextNoAtrium Health Pineville Rehabilitation HospitalroHealth SystemGLUCOSE, FINGERSTICK-IN OFFICE on 20-00-2946Ghzvibb [Mass/Vol]223 mg/lXJmva07 - 110 mg/dLTHE [facility] Interpretation and review of laboratory resultsAbnormHealthSouth Medical CenterROHEALTH SYSTEMTHE [facility]ALTH SYSTEMGlucose [Mass/Vol]245 mg/oRUvum69-507Jzz [facility] Comment on above:Performed By: #### [id number] ####[facility] GLUCOSE RJBQKNS0071 [place], [place], [address]Huzjhep [Mass/Vol]245 mg/oATkwn00 - 110 mg/dLTHE [facility]ALTH SYSTEMInterpretation and review of laboratory results AbnormalTHE [facility]ROHEALTH SYSTEMTHE [facility]ALTH SYSTEMGlucose [Mass/Vol]252 mg/dL Sawt29-792Lqs [facility] SystemComment on above:Performed By: #### 78539 ####NURSING GLUCOSE BNKURCK[address] [place] [address], [address]Xgtgzjx [Mass/Vol]252 mg/zPQptx24 - 110 mg/dLTHE [facility] HOSPITALROSOUTHWEST [facility] SYSTEMInterpretation and review of laboratory resultsAbAultman HospitalROSOUTHWEST GENERAL HEALTH CENTER SYSTEM Glucose [Mass/Vol]298 mg/aRJhhl05-766Vwm [facility] SystemComment on above: Result Comment: Follow ProtocolPerformed By: #### [id number] ####NURSING GLUCOSE IVOTVVM[address] [place] [address], [address]Tfuzvqv [Mass/Vol]298 mg/dLHigh 68 - 110 mg/dLTHE [facility] SYSTEMInterpretation and review of laboratory resultsAbUniversity Hospitals Beachwood [facility] Center SYSTEMGlucose [Mass/Vol]296 mg/wMIjyy19-336Ypv [facility] SystemComment on above:Performed By: #### 38495 ####NURSING GLUCOSE MKFQZQH[address] [place] [address], [address]Yixgxxu [Mass/Vol]296 mg/iYDlls22 - 110 mg/dLTHE [facility] SYSTEMInterpretation and review of laboratory resultsAbUniversity Hospitals Beachwood [facility] Center SYSTEM LACTIC ACIDon 56-99-0544TL LACT1.2 mmol/LNormal0.5-1.6The [facility] System Comment on above:Performed By: #### LACT ####[facility] PATHOLOGY IOEQCNGUEA[address] [place] [address], [address]JINBTQ ACIDOrdered By: Lilly Swenson on 36-84-5928Czagsvtjandsee and review of laboratory resultsNoFisher-Titus Medical CenterLactate [Moles/Vol]1.2 mmol/L0.5 - 1.6 mmol/LTHE [facility] SYSTEMMAGNESIUMon 32-25-5975Zgbbxxpxr [Mass/Vol]1.9 mg/dL Normal1.9-2.7The [facility] SystemComment on above:Result Comment: Note updated reference ranges.Performed By: #### CH8, MG, TRIG, PHOS ####[facility] PATHOLOGY KUEMAWWYQT7158 [place], [address]Ychtsemfqoyoed and review of laboratory resultsNoFisher-Titus Medical CenterMagnesium [Mass/Vol]1.9 mg/dL1.9 - 2.7 mg/dLTHE [facility]No Panel Informationon 06-29-2023 Interpretation and review of laboratory resultsAbnoFisher-Titus Medical CenterTHE [facility] SYSTEMPHOSPHORUSon 05-09-1250Rvbwftnbr [Mass/Vol]2.3 mg/dLLow 2.5-5.0The [facility] SystemComment on above:Result Comment: Note updated reference ranges.Performed By: #### CH8, MG, TRIG, PHOS ####[facility] PATHOLOGY ZVXRNVZNLC[address] [place] [address], [address]Ytqjezgnw [Mass/Vol]2.3 mg/dLLow2.5 - 5.0 mg/dLTHE [facility] HOSPITALProgress Noteson 06-29-2023 Lapping Machine Set Up Operator Authentication Interface Message TextC[facility]kill [facility] System Lapping Machine Set Up Operator Authentication Interface Message TextCatskill [facility] System Lapping Machine Set Up Operator Authentication Interface Message TextNoMemorial [facility] System Lapping Machine Set Up Operator Authentication Interface Message TextCatskill [facility] System Lapping Machine Set Up Operator Authentication Interface Message TextCatskill Regional [facility] System TRIGLYCERIDESon 26-46-7619Zwkhetcyklrr [Mass/Vol]199 mg/dLHigh<151The [facility] SystemComment on above:Performed By: #### CH8, MG, TRIG, PHOS ####[facility] PATHOLOGY BWWKBEKGTE4372 [place], [place], Interpretation and review of laboratory resultsAbnoFisher-Titus Medical Center Triglyceride [Mass/Vol]199 mg/dLHighNINF - 151 mg/dLTHE [facility] MEDICAL CENTERBASIC METABOLIC PANELon 42-12-8550Hisux gap [Moles/Vol]16 mmol/ENzuusi64-00Jsj [facility] SystemComment on above:Performed By: #### CH8, PHOS, MG ####[facility] PATHOLOGY WOLYGMGIMT[address] [place] [address], [address]Calcium [Mass/Vol]7.9 mg/dLLow8.6-10.3The [facility] SystemComment on above:Performed By: #### BILL GARRIDO MG ####[facility] PATHOLOGY DGVXOPYYNK3225 [place], [address]Dlnidtyp [Moles/Vol]118 mmol/LHigh 98-107The [facility] SystemComment on above:Performed By: #### BILL GARRIDO, MG ####[facility] PATHOLOGY QUVNWLIEID9253 [place], [address]IC0 [Moles/Vol]19 mmol/QLck24-04Ulk [facility] SystemComment on above:Performed By: #### BILL GARRIDO, MG ####[facility] PATHOLOGY WBDMPYZRCI8343 [place], [address]Lluwftykvp [Mass/Vol]1.03 mg/dLNormal0.60-1.20The [facility] SystemComment on above:Performed By: #### BILL GARRIDO MG ####[facility] PATHOLOGY XZCDOXDHLX2780 [place], [address]LHRVLFGGK GFR (CKD-EPI) 63 mL/min/1.73sqmNormal>=60The [facility] SystemComment on above:Result Comment: 2020 CKD EPI Equation using Creatinine without RaceComment: Estimated glomerular filtration rate (eGFR) is calculated without a race coefficient. Values should be interpreted in the context of the patient's full clinical presentation.Reference:1. Cooper C, Liv M, Karyn VILCHIS, et al.. A Unifying Approach for GFR Estimation: Recommendations of the NKF-ASN Task Force on Reassessing the Inclusion of Race in Diagnosing Kidney Disease. [place] Journal of Kidney Diseases 202;79(2):268-88.e1.2. N Engl J Med 2020 Vol. 385 Issue 19 Pages 4607-0270Performed By: #### BILL GARRIDO, MG ####[facility] PATHOLOGY XKWAFTLXVU1180 [place], [address]Naudlqc [Mass/Vol]240 mg/eTDvuy07-286 The [facility] SystemComment on above:Performed By: #### BILL GARRIDO, MG ####[facility] PATHOLOGY ERIPMOIGSL2882 [place], [address]Vquatxrez [Moles/Vol]4.0 mmol/LNormal3.5-5.0The [facility] SystemComment on above: Performed By: #### BILL GARRIDO MG ####[facility] PATHOLOGY DDUXFUIZEP7737 [place], [address]Fjakhe [Moles/Vol]149 mmol/BSbjd480-698Ste [facility] SystemComment on above:Performed By: #### BILL GARRIDO MG ####Sangeetha PATHOLOGY KNMQOMVMIC9211 [place], [address]Ykij nitrogen [Mass/Vol]40 mg/dLHigh7-25The [facility] SystemComment on above:Performed By: #### BILL GARRIDO MG ####Sangeetha PATHOLOGY QIOXFNOGGZ0412 [place], [address]Vodem metabolic 2000 panelon 56-72-2339Vpftb gap [Moles/Vol]16 mmol/L10 - 20THE [facility] SYSTEMCalcium [Mass/Vol]7.9 mg/dLLow8.6 - 10.3 mg/dLTHE [facility] SYSTEMChloride [Moles/Vol]118 mmol/LHigh98 - 107 mmol/LTHE [facility] SYSTEMCO2 [Moles/Vol]19 mmol/LLow21 - 31 mmol/LTHE [facility] SYSTEMCreatinine [Mass/Vol]1.03 mg/dL0.60 - 1.20 mg/dLTHE [facility] GFR/1.73 sq M.predicted CKD-EPI (S/P/Bld) [Vol rate/Area]63- PINFTHE METRO[facility]ALTH SYSTEMGlucose [Mass/Vol]240 mg/dRLzuw37 - 109 mg/dLTHE [facility] Interpretation and review of laboratory resultsAbnormalTHE [facility] Potassium [Moles/Vol]4.0 mmol/L3.5 - 5.0 mmol/LTHE [facility] SYSTEMSodium [Moles/Vol]149 mmol/XTuee745 - 145 mmol/LTHE [facility] SYSTEMUrea nitrogen [Mass/Vol]40 mg/dLHigh7 - 25 mg/dLTHE [facility] SYSTEMCBC panel Auto (Bld)on 93-78-6364Vlpugdyxmoe distribution width (RBC) [Ratio]16.7 %High11.5 - 14.5 %THE [facility]ALTH SYSTEMHematocrit (Bld) [Volume fraction]24.9 %Low36.0 - 46.0 %THE [facility] SYSTEMHemoglobin (Bld) [Mass/Vol]8.2 g/dLLow12.0 - 15.0 g/dLTHE METROHEALTH SYSTEMMCH (RBC) [Entitic mass]29.1 pg26.0 - 34.0 pgTHE METROHEALTH SYSTEMMCHC (RBC) [Mass/Vol]32.7 g/dL32.0 - 35.9 g/dLTHE METRO[facility]ALTH SYSTEMMCV (RBC) [Entitic vol]89 fL80 - 100 fLTHE METRO[facility]ALTH SYSTEMPlatelets (Bld) [#/Vol] 137 10*3/rLOsw455 - 400 K/uLTHE METROHEALTH SYSTEMRBC (Bld) [#/Vol]2.81 10*6/uL LowTHE METROHEALTH SYSTEMWBC (Bld) [#/Vol]11.9 10*3/uLHigh4.5 - 11.5 K/uLTHE [facility]ALTH SYSTEMCOMPLETE BLOOD COUNTon 66-06-8701Sxqwbapxikp distribution width (RBC) [Ratio]16.7 %High11.5-14.5The [facility] SystemComment on above: Performed By: #### CBC ####S PATHOLOGY MNBSEFEVPM[address] [place] [address], [address]Arnlwfpnfi (Bld) [Volume fraction]24.9 %Low 36.0-46.0The [facility] HospitalroHealth SystemComment on above:Performed By: #### CBC ####[facility] PATHOLOGY MIKTPLNTLQ2675 [place], [address]Xkavuogjwx (Bld) [Mass/Vol]8.2 g/dLLow12.0-15.0The [facility] HospitalroHealth SystemComment on above: Performed By: #### CBC ####[facility] [id number] [place], [address]JVU (RBC) [Entitic mass]29.1 xfHanuzp37.0-34.0The [facility] SystemComment on above:Performed By: #### CBC ####[facility] PATH[facility] [id number] [place], [address]BCUJ (RBC) [Mass/Vol] 32.7 g/lLAvqgmb59.0-35.9The [facility] SystemComment on above:Performed By: #### CBC ####[facility] PATH[facility]Y [id number] [place] [address], [address]HSX (RBC) [Entitic vol]89 iMYpzcpo94-812Eqy [facility] SystemComment on above:Performed By: #### CBC ####[facility] PATH[facility] EMCDUMUEWS[address] [place] [address], [address]Tlnwtjjp mean volume (Bld) [Entitic vol]8.7 fL Normal7.5-11.2The [facility] HospitalroHealth SystemComment on above:Performed By: #### CBC ####[facility] PATHOLOGY BCOJIXAXHZ[address] [place] [address], Platelets (Bld) [#/Vol]137 10*3/yFIqe768-632Hoo [facility] HospitalroHealth SystemComment on above:Performed By: #### CBC ####[facility] PATHOLOGY NWSCJUVSTZ[address] [place] [address], [address]XQU (Bld) [#/Vol]2.81 10*6/uLLow4.00-5.20The [facility] HospitalroHealth SystemComment on above:Performed By: #### CBC ####[facility] PATHOLOGY MCLDEPQZGU[address] [place] [address], [address]KDR (Bld) [#/Vol]11.9 10*3/uLHigh4.5-11.5The [facility] HospitalroHealth SystemComment on above:Performed By: #### CBC ####[facility] PATHOLOGY ZGWFHOGMIM[address] [place] [address], [address]RZD CELL COUNTOrdered By: Salvador Napier on 43-10-3293Gngqmbf (U)ClearTHE METROHEALTH SYSTEMColor (U)ColorlessTHE METROHEALTH SYSTEMRBC Manual cnt (CSF) [#/Vol]/uL0 - 5 /uLTHE METROHEALTH SYSTEMSupernatantColorlessTHE METROHEALTH SYSTEMTube #1 THE [facility] SYSTEMWBC (CSF) [#/Vol]1 /uL0 - 5 /uLTHE [facility] CELL COUNTon 66-02-6321Nkvnrik (U)[facility] SystemComment on above:Order Comment: TNC (Total Nucleated Count) consists of WBC and lining cells.Performed By: #### CSFCOUNTHARRISCSF ####[facility] PATHOLOGY VGVTOMLBDS[address] [place] [address], [address]Gdjqc (U) [facility] SystemComment on above:Order Comment: TNC (Total Nucleated Count) consists of WBC and lining cells.Performed By: #### CSFCOTREVOR ODEF ####[facility] PATHOLOGY PLJFWRLBZX[address] [place] [address], [address]NWE COUNT< 2Nmmqgs0-6Zxx [facility] SystemComment on above:Order Comment: TNC (Total Nucleated Count) consists of WBC and lining cells.Performed By: #### CSFCOUNTHAMILTON ####[facility] PATHOLOGY MAOFHJQKZD[address] [place] [address], [address]HYXQDLDSUTCBemugdyrzSeavyrOkt [facility] Comment on above:Order Comment: TNC (Total Nucleated Count) consists of WBC and lining cells.Performed By: #### CSFCOUNTTREVORF ####[facility] PATHOLOGY CQANDTXRWM[address] [place] [address], [address]JRBW #1NormalBlanchard Valley Health System [facility] SystemComment on above:Order Comment: TNC (Total Nucleated Count) consists of WBC and lining cells.Performed By: #### CSFCOUNTTREVORF ####[facility] PATHOLOGY ZDJOMNEYIQ[address] [place] [address], [address]OIM (Bld) [#/Vol]0.001 10*3/[facility] Centeral0-5ThAultman Orrville Hospital SystemComment on above:Order Comment: TNC (Total Nucleated Count) consists of WBC and lining cells.Performed By: #### CSFCOUNTHARRISCSF ####[facility] PATHOLOGY TPYFHJYASI[address] [place] [address] [place], [address]XVJ DIFFERENTIALon 02-74-3694Lhhzj Counted Total (Bld) [#]8 {cells}THE salgomedROMojeek SYSTEM Work Phone: [phone]/100 WBC (CSF)88 %THE METROM[facility] SYSTEM Work Phone: [phone]+Macrophages/100 WBC (CSF)13 %THE [facility] Work Phone: [phone] COUNTED TOTAL # IN XBOWX9TfcfniFcg [facility] HospitalroScintella Solutions SystemComment on above:Performed By: #### CSFCOUNT, MDIFFCSF ####[facility] GNHVZPGRUG[address] [place] [address], [address]WHISJ, QITDETDFNNC83 % NormalThe MetroScintella Solutions SystemComment on above:Performed By: #### CSFCOUNT, MDIFFCSF ####[facility] KQXKCNCPYJ3437 [place], [address]VNFKP, MONOCYTES/WPTHNELMBWR28 %NormalThe [facility] HospitalroScintella Solutions SystemComment on above:Performed By: #### CSFCOUNT, MDIFFCSF ####[facility] TUCQOYDMXC8761 [place], [address]WC HEAD W/O CONTRASTon 83-30-7060ZL HEAD W/O CONTRASTNormalThe [facility] HospitalroScintella Solutions SystemCT Head WO contrastOrdered By: Estee Doss on 87-40-6173RQ ORL231.9 (mGy.cm)THE [facility] Work Phone: [phone] SeriesTopogram,HEAD WOTHE salgomedROMojeek SYSTEM Work Phone: [phone] VOL0.10 (mGy),36.37 (mGy)[facility] Work Phone: [phone] Head Dosimetry Phantom,IEC Head Dosimetry PhantomTHE [facility]ROM[facility] SYSTEM Work Phone: [phone] [facility]ROM[facility] SYSTEM Work Phone: [phone] Head WO contraston 14-05-9216JMVOLDYXYZWP salgomedROMojeek SYSTEM Work Phone: [phone] Study observation (narrative)[facility] Work Phone: CULTURE, CSF/GRAM STAINon 19-43-9007JZXRFZV, CSF/GRAM STAINC CSF: No Growth GRAM STAIN: This Gram Stain was performed on a Cytocentrifuged specimen. No Polymorphonuclear Leukocytes seen No Squamous Epithelial Cells seen No organisms seenNoMemorial Hospital SystemComment on above:Performed By: #### C CSF ####[facility] Mnermvdfp[address] [place], [place] [address]Care Plan Noteon 27-81-2440Jimzctptziqol Authentication Interface Message TextNormal The [facility] SystemConsultson 15-97-5125Ilwzrialuhais Authentication Interface Message TextNoMemorial Hospital SystemTranscription Authentication Interface Message TextNoMemorial Hospital SystemFUNGAL CULTURE AND SADIQ PREPon 76-00-2632NKXTWW CULTURE AND SADIQ PREPC FUNGUS: No Growth SADIQ KARYN: No Yeast Or Fungal Elements SeenNoMemorial Hospital SystemComment on above: Performed By: #### C FUNGUS ####[facility] Ojdjluxla[address] [place], [place] [address]GLUCOSE, CSFon 15-75-7973Ztyxqtc (CSF) [Mass/Vol]174 mg/kSLrvj74 - 70 mg/dLTHE ROME MEMORIAL HOSPITALMojeek SYSTEM Work Phone: GLU THX068 mg/fLFpeq12-61Jbn [facility] SystemComment on above:Order Comment: Note updated reference ranges.Performed By: #### TP CSF, GLU CSF ####[facility] ZEBPFJQBWK2729 [place], [address]UONZTKA, FINGERSTICK-IN OFFICEon 80-49-7233Bnldlsv [Mass/Vol]348 mg/dL Bxaf71-343Ikc [facility] SystemComment on above:Performed By: #### 67542 ####NURSING GLUCOSE ABMDLOF1253 [place], [place], [address]Ukhzxkg [Mass/Vol]348 mg/tKTvrx22 - 110 mg/dLTHE [facility] SYSTEMInterpretation and review of laboratory resultsAbnoFisher-Titus Medical CenterTHE [facility] SYSTEM Glucose [Mass/Vol]267 mg/eIWltr22-704Szv [facility] SystemComment on above: Performed By: #### 56956 ####NURSING GLUCOSE OJQKTXX[address] [place] [address], [address]Wdtsenk [Mass/Vol]267 mg/sIEadw42 - 110 mg/dLTHE [facility]ITALROS[facility]TH[facility] SYSTEMInterpretation and review of laboratory resultsAbnoUC Medical Center SYSTEMTHE [facility]ITALROSOUTHWE[facility] SYSTEMGlucose [Mass/Vol]278 mg/fSSsjj20-077Wrz [facility] SystemComment on above:Performed By: #### [id number] ####NURSING GLUCOSE DPHXKPP[address] [place] [address], [address]Qfwdopp [Mass/Vol]278 mg/dL High68 - 110 mg/dLTHE [facility] SYSTEMInterpretation and review of laboratory resultsAbnoUC Medical Center SYSTEMTHE [facility]ITALROSOUTHWE[facility] SYSTEMGlucose [Mass/Vol]261 mg/pYCrzn03-313Ayo [facility] SystemComment on above:Performed By: #### 95438 ####NURSING GLUCOSE XTLPWSG[address] [place] [address], [address]F AND Grayson 45-60-4657Pacgfusmlxfsr Authentication Interface Message TextNoMemorial Hospital SystemLACTIC ACIDon 35-40-1725ZZ LACT0.9 mmol/LNormal0.5-1.6The [facility] SystemComment on above:Performed By: #### LACT ####[facility] MHCGWXFJXQ[address] [place] [address], [address]FV LACT1.2 mmol/LNormal 0.5-1.6The [facility] SystemComment on above:Performed By: #### LACT ####[facility] PZCTBFNTDA[address] [place] [address], [address]FWCHRAFRUmh 60-15-0832Vmgjsfvdu [Mass/Vol]2.5 mg/dLNormal1.9-2.7The [facility] System Comment on above:Result Comment: Note updated reference ranges.Performed By: #### CH8, PHOS, MG ####[facility] EMXFOVLEOU[address] [place] [address], [address]Vlcqwxhqt [Mass/Vol]2.5 mg/dL1.9 - 2.7 mg/dLTHE [facility] No Panel InformationOrdered By: Salvador Napier on 72-30-6984NPZ [facility] HOSPITALROMojeek SYSTEMNo Panel Informationon 19-33-3998Duaugwdqxfejrg and review of laboratory resultsAbnoUC Medical Center SYSTEM Work Phone: THE [facility] HOSPITALROMo[facility]ek SYSTEM Work Phone: THE [facility] HOSPITALROMo[facility]ek SYSTEM Work Phone: Interpretation and review of laboratory resultsNormal THE [facility] SYSTEMTHE [facility]OSPITALROSOUTHWEST [facility] SYSTEMPHOSPHORUSon 30-95-5546Xlsolwwex [Mass/Vol]2.6 mg/dLNormal2.5-5.0The [facility] SystemComment on above:Result Comment: Note updated reference ranges.Performed By: #### CH8, PHOS, MG ####[facility] BABJUDPVUL[address] [place] [address], [address]Nzgjerjkn [Mass/Vol]2.6 mg/dL2.5 - 5.0 mg/dLTHE [facility] SYSTEMPost-Procedure Noteon 74-92-9729Izmzpzruoqitk Authentication Interface Message TextNoMemorial Hospital SystemProcedureson 04-62-0161Vjvlcwhyszend Authentication Interface Message TextNoMemorial Hospital SystemProgress Noteson 64-81-2190Ueovvhaxunnto Authentication Interface Message TextNoMemorial Hospital SystemTranscription Authentication Interface Message TextNoMemorial Hospital SystemTranscription Authentication Interface Message TextNoMemorial Hospital SystemTranscription Authentication Interface Message TextNoMemorial Hospital SystemTranscription Authentication Interface Message TextNoMemorial Hospital SystemTOTAL PROTEIN, CSFon 40-89-2213Gzcgqbc (CSF) [Mass/Vol]9.0 mg/dLLow15 - 45 mg/dLTHE [facility] SYSTEM Work Phone: TP CSF9.0 mg/aRSwm74-55Kkl [facility] SystemComment on above:Order Comment: Note updated reference ranges.Performed By: #### TP CSF, GLU CSF ####[facility] BFCNFPVVPC1136 [place], [address]Pmnmdvzmp Plan Noteon 37-31-9802Gbfsmawxtuakg Authentication Interface Message TextNoMemorial Hospital SystemURINE CULTUREOrdered By: Carolyn Lara on 93-52-3961Omrzandq identified Cx Nom (U)PositiveAbnoHighland District HospitalE [facility] SYSTEMBacteria identified Cx Nom (U)>100,000 CFU/ml Escherichia coliTHE [facility] SYSTEMBacteria identified Cx Nom (U)>100,000 CFU/ml Providencia rettgeriTHE [facility]OSPITALROSOUTHWEST [facility] SYSTEMInterpretation and review of laboratory results AbnormalTHE [facility] HOSPITALROHEALTH SYSTEMTHE [facility]OSPITALROHEALTH SYSTEMAnesthesia Postprocedure Evaluationon 87-73-1755Uonquypwqosxw Authentication Interface Message TextNormal The [facility]roHealth SystemAnesthesia Preprocedure Evaluationon 06-27-2023 Lapping Machine Set Up Operator Authentication Interface Message TextNormKettering [facility]al [facility] System Anesthesia Transfer Of Careon 28-47-2295Giyzvvmfnufve Authentication Interface Message TextNormKettering Health Behavioral Medical Center SystemBASIC METABOLIC PANELon 64-22-2673Zhdxi gap [Moles/Vol]22 mmol/RGpsq06-38Huk [facility] SystemComment on above: Performed By: #### BILL JAUREGUI CH8 ####[facility] CZRSRGSBYM6280 [place], [address]Krplgah [Mass/Vol]8.2 mg/dLLow8.6-10.3The [facility] SystemComment on above:Performed By: #### BILL JAUREGUI, CH8 ####[facility] BIZIZJCUZL0487 [place], [address]Yclcedwa [Moles/Vol]115 mmol/EBqgu18-719Yxi [facility] SystemComment on above:Performed By: #### BILL JAUREGUI, CH8 ####[facility] QGOFCUCSWG3265 [place], [address]FR0 [Moles/Vol]17 mmol/HUxh08-65Ddt [facility] SystemComment on above:Performed By: #### MG PHOSangeetha, CH8 ####[facility] IDYQFAHGNO1923 [place], [address]Lfvrhmoryl [Mass/Vol] 1.37 mg/dLHigh0.60-1.20The [facility] SystemComment on above:Performed By: #### BILL JAUREGUI CH8 ####[facility] VUBKOTHQTK5301 [place], [address]XQCSNBOBQ GFR (CKD-EPI)45 mL/min/1.73sqmLow>=60The [facility] System Comment on above:Result Comment: 2020 CKD EPI Equation using Creatinine without RaceComment: Estimated glomerular filtration rate (eGFR) is calculated without a race coefficient. Values should be interpreted in the context of the patient's full clinical presentation.Reference:1. Cooper C, Liv M, Karyn DC, et al.. A Unifying Approach for GFR Estimation: Recommendations of the NKF-ASN Task Force on Reassessing the Inclusion of Race in Diagnosing Kidney Disease. Thai Journal of Kidney Diseases 2021;79(2):268-88.e1.2. N Engl J Med 1 Vol. 385 Issue 19 Pages 3418-0962Performed By: #### BILL JAUREGUI CH8 ####[facility] WJVROOKKVT3017 [place], [address]Dwmtmst [Mass/Vol]220 mg/qIFerf51-386Qpo [facility] SystemComment on above:Performed By: #### BILL JAUREGUI CH8 ####[facility] FHAUCQZVRC5816 [place], [place], [address]Potassium [Moles/Vol]4.5 mmol/LNormal3.5-5.0The [facility] System Comment on above:Performed By: #### BILL JAUREGUI CH8 ####[facility] FUPGAVXLLP5299 [place], [address]Ylbunt [Moles/Vol]149 mmol/YUwjn624-439Nby [facility] SystemComment on above:Performed By: ###BILL FOWLER CH8 ####[facility] RBGYEANMBI3037 [place], [place], [address]Urea nitrogen [Mass/Vol]43 mg/dLHigh7-25The [facility] SystemComment on above:Performed By: ###BILL FOWLER CH8 ####[facility] IWFJSKEVXM8265 [place], [address]Iejuz gap [Moles/Vol]15 mmol/LNormal 10-20The [facility] HospitalroHealth SystemComment on above:Performed By: #### RADHIKA KHAN, MG ####[facility] OUFTOQFTNB4184 [place], Calcium [Mass/Vol]8.0 mg/dLLow8.6-10.3The [facility] SystemComment on above: Performed By: #### RADHIKA KHAN, MG ####[facility] UABCDLAVLE9922 [place], [address]Pmcrdrio [Moles/Vol]114 mmol/ICtpv84-884Vgr [facility] HospitalroHealth SystemComment on above:Performed By: #### RADHIKA KHAN, MG ####[facility] EABYGLDXHO7689 [place], [address]PR9 [Moles/Vol]20 mmol/GGvr62-31Ogj [facility] HospitalroHealth SystemComment on above:Performed By: #### RADHIKA KHAN, MG ####[facility] TSBMECJDIB9265 [place], [address]Luzsyqlfjc [Mass/Vol]1.70 mg/dLHigh0.60-1.20The [facility] HospitalroHealth SystemComment on above:Performed By: #### RADHIKA KHAN, MG ####S PATHOLOGY XXDIDLFSVM6858 [place], [address]PIZREKFJJ GFR (CKD-EPI) 35 mL/min/1.73sqmLow>=60The [facility] SystemComment on above:Result Comment: 2020 CKD EPI Equation using Creatinine without RaceComment: Estimated glomerular filtration rate (eGFR) is calculated without a race coefficient. Values should be interpreted in the context of the patient's full clinical presentation.Reference:1. Cooper C, Liv M, Karyn VILCHIS, et al.. A Unifying Approach for GFR Estimation: Recommendations of the NKF-ASN Task Force on Reassessing the Inclusion of Race in Diagnosing Kidney Disease. [place] Journal of Kidney Diseases 202;79(2):268-88.e1.2. N Engl J Med 2021 Vol. 385 Issue 19 Pages 1737-1746Performed By: #### RADHIKA KHAN, MG ####S PATHOLOGY YXANOLWJEN4468 [place], [address]Vmwdpma [Mass/Vol]54 mg/dLCritically sfh54-539Wud [facility] HospitalroHealth SystemComment on above:Performed By: #### RADHIKA KHAN, MG ####S PATHOLOGY IWFYXJOJCU[address] [place] [address], Potassium [Moles/Vol]4.2 mmol/LNormal3.5-5.0The [facility] HospitalroHealth SystemComment on above:Performed By: #### RADHIKA KHAN, MG ####[facility] PATHOLOGY FGRUFPDBRY[address] [place] [address], [address]Ghkrlu [Moles/Vol]145 mmol/LNormal 136-145The [facility] HospitalroHealth SystemComment on above:Performed By: #### RADHIKA KHAN, MG ####[facility] PATHOLOGY SNYXQEVEQA[address] [place] [address], [address]Ogsa nitrogen [Mass/Vol]44 mg/dLHigh7-25The [facility] By [facility] HealthHealth SystemComment on above: Performed By: #### RADHIKA KHAN, MG ####[facility] PATHOLOGY FBWQKYQBZD32[address] [place] [address], [address]KRWDE GAS, ARTERIALon 76-87-7165YF YA-7.0 mmol/L Low-2.0-3.0The [facility] By [facility] HealthHealth SystemComment on above:Performed By: #### CR GLU, CR ICA, LACT, CR BGA, CR COOX, CR LYTES ####[facility] PATHOLOGY VSHXHVPERF6850OyvrgDriivk[address] [place] [address], [address]YA MFU623.0 mm HgLow35.0-45.0The [facility] HospitalroHealth SystemComment on above:Performed By: #### CR GLU, CR ICA, LACT, CR BGA, CR COOX, CR LYTES ####[facility] PATHOLOGY JZJGCUMVFF7107KqcvlTdious[address] [place] [address], [address]HI PHA7.057Goy1.350-7.450The [facility] HospitalroHealth SystemComment on above: Performed By: #### CR GLU, CR ICA, LACT, CR BGA, CR COOX, CR LYTES ####[facility] PATHOLOGY LIBTPJWGHS4382UtnqzJzbkgw[address] [place] [address], [address]WJ PA8748 mm ZfOrou01-352Jlr [facility] SystemComment on above:Performed By: #### CR GLU, CR ICA, LACT, CR BGA, CR COOX, CR LYTES ####[facility] PATHOLOGY WHNVJMIHWT[address] [place] [address], [address]MSG1 (Bld) [Moles/Vol]18 mmol/LLow 21-28The [facility] SystemComment on above:Performed By: #### CR GLU, CR ICA, LACT, CR BGA, CR COOX, CR LYTES ####[facility] PATHOLOGY TRCOSOROIG1494IfioeOlloae[address] [place] [address], [address]Krtloh saturation in Blood97.8 %Wxofzx96.0-99.0The [facility] SystemComment on above:Performed By: #### CR GLU, CR ICA, LACT, CR BGA, CR COOX, CR LYTES ####[facility] PATHOLOGY HPTCFCZQDD3107CqggtIobgvy[address] [place] [address], [address]PY YA-6.0 mmol/LLow-2.0-3.0The [facility] System Comment on above:Performed By: #### CR COOX, CR LYTES, LACT, CR BGA, CR GLU, CR ICA ####[facility] PATHOLOGY TGFNNNSNGL5944KacarCxamsf[address] [place] [address], [address]CP LUP336.3 mm QfRlvakv68.0-45.0The [facility] SystemComment on above:Performed By: #### CR COOX, CR LYTES, LACT, CR BGA, CR GLU, CR ICA ####[facility] PATHOLOGY HUGVHCEAFX9404PkdaqUzaonv[address] [place] [address], [address]FP PHA7.318Low 7.350-7.450The [facility] SystemComment on above:Performed By: #### CR COOX, CR LYTES, LACT, CR BGA, CR GLU, CR ICA ####[facility] PATHOLOGY GAKUNGTFCK6231UhnmsZbiiqp[address] [place] [address], [address]HP UT7845 mm RxAfgu41-228Bas [facility] System Comment on above:Performed By: #### CR COOX, CR LYTES, LACT, CR BGA, CR GLU, CR ICA ####[facility] PATHOLOGY WZHSGAJGXX9786LkmptGpscyc[address] [place] [address], HCO3 (Bld) [Moles/Vol]19 mmol/SCok04-39Nga [facility] SystemComment on above: Performed By: #### CR COOX, CR LYTES, LACT, CR BGA, CR GLU, CR ICA ####[facility] PATHOLOGY DDZRFTCULI3159EjiowFpjjtp[address] [place] [address], [address]Fhddok saturation in Blood98.0 %Wxhjvt52.0-99.0The [facility] SystemComment on above: Performed By: #### CR COOX, CR LYTES, LACT, CR BGA, CR GLU, CR ICA ####[facility] PATHOLOGY PCCMTCVEHE4724HztzzZluzjc[address] [place] [address], [address]DD YA-2.7 mmol/LLow-2.0-3.0The [facility] By [facility] SystemComment on above:Performed By: #### CR BGA, LACT, CR GLU, CR COOX, CR LYTES, CR ICA ####[facility] PATHOLOGY ACODQMJGNQ[address] [place] [address], [address]XB LZK597.4 mm SkWffajr59.0-45.0The [facility] SystemComment on above:Performed By: #### CR BGA, LACT, CR GLU, CR COOX, CR LYTES, CR ICA ####[facility] PATHOLOGY MRJXKCYENG2751ZxegwLzfgyo[address] [place] [address], [address]OA PHA7.022Wka8.350-7.450The [facility] System Comment on above:Performed By: #### CR BGA, LACT, CR GLU, CR COOX, CR LYTES, CR ICA ####[facility] PATHOLOGY CGDFELRGGS8893SwtbfAvoeeb[address] [place] [address], [address]TY BA3740 mm WkRhmz73-102Tta [facility] SystemComment on above:Performed By: #### CR BGA, LACT, CR GLU, CR COOX, CR LYTES, CR ICA ####[facility] PATHOLOGY OBXLZONYMB0981YkprqMhszem[address] [place] [address], [address]JRJ7 (Bld) [Moles/Vol]23 mmol/OJmzrfw87-84Svr [facility]roHealth SystemComment on above:Performed By: #### CR BGA, LACT, CR GLU, CR COOX, CR LYTES, CR ICA ####[facility] PATHOLOGY FPFMUHQZDX34[address] [place] [address], [address]Vreard saturation in Blood96.7 %Normal 95.0-99.0The [facility] HospitalroHealth SystemComment on above:Performed By: #### CR BGA, LACT, CR GLU, CR COOX, CR LYTES, CR ICA ####[facility] PATHOLOGY DNTPZXZOXY1529WrxqaOobidz[address] [place] [address], [address]AW YA-1.9 mmol/LNormal-2.0-3.0The [facility] By [facility] Health[facility] SystemComment on above:Performed By: #### CR COOX, CR LYTES, LACT, CR ICA, CR BGA, CR GLU ####[facility] PATHOLOGY QQFTQXBTJI1779TqtaoSuwfqy[address] [place] [address], [address]HV ZPO042.1 mm UlLoargi45.0-45.0The [facility] HospitalroHealth SystemComment on above:Performed By: #### CR COOX, CR LYTES, LACT, CR ICA, CR BGA, CR GLU ####[facility] PATHOLOGY KIHFCJIFFH4021DrakwSkajvv[address] [place] [address], [address]LT PHA7.385 Normal7.350-7.450The [facility] HospitalroHealth SystemComment on above:Performed By: #### CR COOX, CR LYTES, LACT, CR ICA, CR BGA, CR GLU ####[facility] PATHOLOGY GLRPXALZYL[address] [place] [address], [address]OE AN6835 mm OaEeyj05-234Doa [facility]ro[facility] SystemComment on above:Performed By: #### CR COOX, CR LYTES, LACT, CR ICA, CR BGA, CR GLU ####[facility] PATHOLOGY YRNDLGRSSO5025AiuzzXhspxk[address] [place] [address], [address]ZCY0 (Bld) [Moles/Vol]22 mmol/QUfytmu86-18Ugu [facility] SystemComment on above:Performed By: #### CR COOX, CR LYTES, LACT, CR ICA, CR BGA, CR GLU ####[facility] PATHOLOGY VZFKFSWFQE7852RjxrtRtffni[address] [place] [address], [address]Zbwjsg saturation in Blood99.0 %Tkullj88.0-99.0The [facility] SystemComment on above:Performed By: #### CR COOX, CR LYTES, LACT, CR ICA, CR BGA, CR GLU ####[facility] PATHOLOGY ZEMMMSBVVW0447OvmdlKoqjth[address] [place] [address], [address]Rvunn Attestationon 80-80-7705Szxettncnwqxd Authentication Interface Message TextNormalThe [facility] SystemCALCIUM, IONIZEDon 15-38-3643NH ICA1.15 mmol/LNormal1.15-1.33[facility] Comment on above:Result Comment: This test was developed, and its performance characteristics determined by the Department of Pathology of [facility]. It has not been cleared or approved by the FDA. This test is used for clinical purposes only.Performed By: #### CR GLU, CR ICA, LACT, CR BGA, CR COOX, CR LYTES ####[facility] [id number] [place] [address], [id number] ICA1.09 mmol/LLow1.15-1.33[facility] SystemComment on above: Result Comment: This test was developed, and its performance characteristics determined by the Department of Pathology of [facility]. It has not been cleared or approved by the FDA. This test is used for clinical purposes only.Performed By: #### CR COOX, CR LYTES, LACT, CR BGA, CR GLU, CR ICA ####[facility] PATHOLOG[facility] EKLZEUBEWJ8591DfuahDwwqic[address] [place] [address], [address]HB ICA1.15 mmol/LNormal1.15-1.33[facility] SystemComment on above:Result Comment: This test was developed, and its performance characteristics determined by the [facility]. It has not been cleared or approved by the FDA. This test is used for clinical purposes only.Performed By: #### CR BGA, LACT, CR GLU, CR COOX, CR LYTES, CR ICA ####[facility] PATHOLOG[facility] GUXXLFUDWP3509DjhpcInwbas[address] [place] [address], [address]FL ICA1.17 mmol/LNormal 1.15-1.33[facility] SystemComment on above:Result Comment: This test was developed, and its performance characteristics determined by the Department of Pathology of [facility]. It has not been cleared or approved by the FDA. This test is used for clinical purposes only.Performed By: #### CR COOX, CR LYTES, LACT, CR ICA, CR BGA, CR GLU ####[facility] PATHOLOGY YIEHAIOQRK7910KdxhwJulzti[address] [place] [address], [address]HE-SFTDSARGpt 18-33-1363UJUOOFLHVKLLZIOWU0.0 % High0.5-1.5The [facility] SystemComment on above:Performed By: #### CR GLU, CR ICA, LACT, CR BGA, CR COOX, CR LYTES ####[facility] PATHOLOGY PFKROBECCG6031NsbfyDnsbkw[address] [place] [address], [address]AX HBMET2.0 %High0.0-1.5[facility] Comment on above:Performed By: #### CR GLU, CR ICA, LACT, CR BGA, CR COOX, CR LYTES ####[facility] PATH[facility] MSDWITRWCS9694MgcieQparvj[address] [place] [address], Hematocrit (Bld) [Volume fraction]26.1 %Low38.0-46.0The [facility] System Comment on above:Performed By: #### CR GLU, CR ICA, LACT, CR BGA, CR COOX, CR LYTES ####[facility] PATHOLOG[facility] AJMOAKKZHJ7330QdvqoLqbyln[address] [place] [address], Hemoglobin (Bld) [Mass/Vol]8.4 g/dLLow12.0-16.0The [facility] SystemComment on above:Performed By: #### CR GLU, CR ICA, LACT, CR BGA, CR COOX, CR LYTES ####[facility] PATHOLOGY AKKWIKACXR5009PqvucYxnzor[address] [place] [address], [address]MARDQCPXQLSGF 93.9 %Low94.0-98.0[facility] SystemComment on above:Performed By: #### CR GLU, CR ICA, LACT, CR BGA, CR COOX, CR LYTES ####[facility] PATHOLOGY JNQOJUZWXX[address] [place] [address], [address]UZFEWNIJFMRUBNQLV2.9 %High0.5-1.5The [facility] SystemComment on above:Performed By: #### CR COOX, CR LYTES, LACT, CR BGA, CR GLU, CR ICA ####[facility] PATHOLOGY MPLIIWDNWH6317AjhdnBnnzwf[address] [place] [address], [address]LA HBMET2.0 %High0.0-1.5The [facility] Comment on above:Performed By: #### CR COOX, CR LYTES, LACT, CR BGA, CR GLU, CR ICA ####[facility] PATHOLOGY TWCFFTBLYO1337KsgfgEfvsfh[address] [place] [address], Hematocrit (Bld) [Volume fraction]29.0 %Low38.0-46.0The [facility] Comment on above:Performed By: #### CR COOX, CR LYTES, LACT, CR BGA, CR GLU, CR ICA ####[facility] PATHOLOGY KONYBVSFJH1962MdcivJwaipy[address] [place] [address], Hemoglobin (Bld) [Mass/Vol]9.4 g/dLLow12.0-16.0[facility] SystemComment on above:Performed By: #### CR COOX, CR LYTES, LACT, CR BGA, CR GLU, CR ICA ####[facility] PATHOLOGY GWMJCZGVOF5056FkdrhHiquzj[address] [place] [address], [address]KXTBGETUTAGQG 94.2 %Vxpsro80.0-98.0[facility] SystemComment on above:Performed By: #### CR COOX, CR LYTES, LACT, CR BGA, CR GLU, CR ICA ####[facility] PATHOLOGY ETGVMEOJDD[address] [place] [address], [address]UFJBILKVBCASPQDYV4.7 %High0.5-1.5The [facility] SystemComment on above:Performed By: #### CR BGA, LACT, CR GLU, CR COOX, CR LYTES, CR ICA ####[facility] PATHOLOGY DQNLAIVPWP7190YztqaGmuvky[address] [place] [address], [address]FM HBMET1.7 %High0.0-1.5The [facility] Comment on above:Performed By: #### CR BGA, LACT, CR GLU, CR COOX, CR LYTES, CR ICA ####[facility] PATHOLOG[facility] RVJDCMEKWP1618LqnypBtsfcr[address] [place] [address], Hematocrit (Bld) [Volume fraction]30.8 %Low38.0-46.0The [facility] Comment on above:Performed By: #### CR BGA, LACT, CR GLU, CR COOX, CR LYTES, CR ICA ####[facility] PATHOLOGY VYKOQATCIM3585ImgmoUbiwri[address] [place] [address], Hemoglobin (Bld) [Mass/Vol]10.0 g/dLLow12.0-16.0The [facility] SystemComment on above:Performed By: #### CR BGA, LACT, CR GLU, CR COOX, CR LYTES, CR ICA ####[facility] PATHOLOGY KNVDGPMUFR1081FsrjeRavgda[address] [place] [address], WXUTFUSXSTSVX59.4 %Low94.0-98.0[facility] SystemComment on above:Performed By: #### CR BGA, LACT, CR GLU, CR COOX, CR LYTES, CR ICA ####[facility] PATHOLOG[facility] KHDGFCOVNL9175VoxufMyjvde[address] [place] [address], [address]KGROHWGCAJTABGPBZ4.1 % High0.5-1.5[facility] SystemComment on above:Performed By: #### CR COOX, CR LYTES, LACT, CR ICA, CR BGA, CR GLU ####[facility] PATHOLOG[facility] AIRPVJLKLF4920IwldmDjghtw[address] [place] [address], [address]OH HBMET1.1 %Normal0.0-1.5The [facility] Comment on above:Performed By: #### CR COOX, CR LYTES, LACT, CR ICA, CR BGA, CR GLU ####[facility] PATHOLOGY LBEINMYLVC8885GkutiDlgmzz[address] [place] [address], Hematocrit (Bld) [Volume fraction]30.0 %Low38.0-46.0The [facility] Comment on above:Performed By: #### CR COOX, CR LYTES, LACT, CR ICA, CR BGA, CR GLU ####[facility] PATHOLOGY RMBVQUCEBF1019JnitgRvzerm[address] [place] [address], Hemoglobin (Bld) [Mass/Vol]9.7 g/dLLow12.0-16.0The [facility] SystemComment on above:Performed By: #### CR COOX, CR LYTES, LACT, CR ICA, CR BGA, CR GLU ####[facility] PATHOLOG[facility] QFGMEARMAY8174SlixqKghlza[address] [place] [address], [address]ZYWDAGSLJNXZU 95.8 %Nqphjl48.0-98.0The [facility] SystemComment on above:Performed By: #### CR COOX, CR LYTES, LACT, CR ICA, CR BGA, CR GLU ####[facility] PATHOLOGY EFDCTBWYND[address] [place] [address], [address]ZRBFQVZG BLOOD COUNTon 06-27-2023 Erythrocyte distribution width (RBC) [Ratio]16.1 %High11.5-14.5The [facility] SystemComment on above:Performed By: #### CBC ####[facility] PATHOLOGY JVUOEJZVUR[address] [place] [address], [address]Wkvzvefozf (Bld) [Volume fraction]25.9 %Low36.0-46.0[facility] SystemComment on above:Performed By: #### CBC ####[facility] PATHOLOGY RPYXKXEPEZ6105[address] [place] [address], Hemoglobin (Bld) [Mass/Vol]8.7 g/dLLow12.0-15.0[facility] SystemComment on above:Performed By: #### CBC ####[facility] PATHOLOGY OCESLSAYKR[address]45[address] [place] [address], [address]UFA (RBC) [Entitic mass]30.6 vlGagpni82.0-34.0The [facility] SystemComment on above:Performed By: #### CBC ####[facility] PATHOLOGY FQSUJTXXJI2747[address] [place] [address], [address]VOOM (RBC) [Mass/Vol] 33.5 g/dINljdek76.0-35.9The [facility] SystemComment on above:Performed By: #### CBC ####[facility] PATHOLOGY YQFTPXJOSH4979[address] [place] [address], [address]TDN (RBC) [Entitic vol]91 fCFdkjgq52-748Icn [facility] SystemComment on above:Performed By: #### CBC ####[facility] PATHOLOGY QRLOEZMWUJ986[address] [place] [address], [address]Uhtbjtki mean volume (Bld) [Entitic vol]9.3 fL Normal7.5-11.2The [facility] SystemComment on above:Performed By: #### CBC ####[facility] PATHOLOGY MJZANRDSLS[address] [place] [address], Platelets (Bld) [#/Vol]128 10*3/tVVme736-756Ccb [facility] SystemComment on above:Performed By: #### CBC ####[facility] PATHOLOGY GKUBNUITZB5508[address] [place] [address], [address]THR (Bld) [#/Vol]2.84 10*6/uLLow4.00-5.20The [facility] SystemComment on above:Performed By: #### CBC ####[facility] PATHOLOGY RHJQWJRSLB[address] [place] [address], [address]VKS (Bld) [#/Vol]10.9 10*3/uLNormal4.5-11.5The [facility] SystemComment on above:Performed By: #### CBC ####[facility] PATHOLOGY JPJRESPKUO5405[address] [place] [address], Erythrocyte distribution width (RBC) [Ratio]16.3 %High11.5-14.5The [facility] SystemComment on above:Performed By: #### CBC ####[facility] PATHOLOGY TUAUGRVQYG5878[address] [place] [address], [address]Cihlanhqpw (Bld) [Volume fraction]30.1 %Low36.0-46.0The [facility] SystemComment on above:Performed By: #### CBC ####[facility] PATHOLOGY CMMYCGQLNG4326[address] [place] [address], Hemoglobin (Bld) [Mass/Vol]10.3 g/dLLow12.0-15.0The [facility] SystemComment on above:Performed By: #### CBC ####[facility] PATHOLOGY GJZBXUZLSW5674 [place], [address]LCH (RBC) [Entitic mass]29.9 wnKlziek13.0-34.0The [facility] SystemComment on above:Performed By: #### CBC ####[facility] PATHOLOGY GMZZQWUXRW1515 [place], [address]MOVS (RBC) [Mass/Vol] 34.1 g/wIKafxnp71.0-35.9The [facility] SystemComment on above:Performed By: #### CBC ####[facility] PATHOLOGY LQLCRTCHWT5208 [place], [address]DAZ (RBC) [Entitic vol]88 rOCzrkjc02-605Iey [facility] SystemComment on above:Performed By: #### CBC ####[facility] PATHOLOGY YMGUEBNMQF719[address] [place] [address], [address]Rjzdixey mean volume (Bld) [Entitic vol]8.9 fL Normal7.5-11.2The [facility] SystemComment on above:Performed By: #### CBC ####[facility] PATHOLOGY JUNBRWMAYL[address] [place] [address], Platelets (Bld) [#/Vol]140 10*3/cDKwz696-875Igw [facility] SystemComment on above:Performed By: #### CBC ####[facility] PATHOLOGY NOQENCUMBG[address] [place] [address], [address]CZO (Bld) [#/Vol]3.43 10*6/uLLow4.00-5.20The [facility] SystemComment on above:Performed By: #### CBC ####[facility] PATHOLOGY LFZNTKEZQB2626[address] [place] [address], [address]THJ (Bld) [#/Vol]16.8 10*3/uLHigh4.5-11.5The [facility] SystemComment on above:Performed By: #### CBC ####[facility] PATHOLOGY BKAKOPBMXY8654[address] [place] [address], [address]Mawi Plan Noteon 83-14-6293Dnvbhplqahfnf Authentication Interface Message TextNormal The [facility] SystemConsultson 05-56-1722Apkfkvniatele Authentication Interface Message TextNoMemorial [facility] SystemTranscription Authentication Interface Message TextPHYSICAL THERAPY Tx Session deferred this date as Patient is currently off floor in OR for exploratory laparotomy, possible bowel resection. Will f/u next date Molly Wang, PT, MPT (S) [phone] *Secure Chat with [facility] SystemELECTROLYTESon 06-27-2023 Chloride [Moles/Vol]118 mmol/RHtgy30-677Yrz [facility] SystemComment on above: Performed By: #### CR GLU, CR ICA, LACT, CR BGA, CR COOX, CR LYTES ####[facility] PATHOLOGY YTYLURKMIB3285GjncqUrftna[address] [place] [address], [address]Aufsqhizz [Moles/Vol]4.2 mmol/LNormal3.5-5.0The [facility] SystemComment on above: Performed By: #### CR GLU, CR ICA, LACT, CR BGA, CR COOX, CR LYTES ####[facility] PATHOLOGY FNFZVBYLZE7466OiiuxBywtdt[address] [place] [address], [address]Jqemvd [Moles/Vol]149 mmol/IGzlj250-345Gax [facility] SystemComment on above:Performed By: #### CR GLU, CR ICA, LACT, CR BGA, CR COOX, CR LYTES ####[facility] PATHOLOGY SMJEWGXSNY5724SfsobNkwabn[address] [place] [address], [address]Txtzpnzw [Moles/Vol]117 mmol/ISerk07-988Dwv [facility] SystemComment on above:Performed By: #### CR COOX, CR LYTES, LACT, CR BGA, CR GLU, CR ICA ####[facility] PATHOLOGY QFQKZLGRLN4137[address] [place] [address], [address]Fntjxqjop [Moles/Vol]4.2 mmol/LNormal 3.5-5.0The [facility] SystemComment on above:Performed By: #### CR COOX, CR LYTES, LACT, CR BGA, CR GLU, CR ICA ####[facility] PATHOLOGY QPSEXSKDII7857XfylyKqvmby[address] [place] [address], [address]Jlhjjb [Moles/Vol]148 mmol/JKcrv699-122Tot [facility] SystemComment on above:Performed By: #### CR COOX, CR LYTES, LACT, CR BGA, CR GLU, CR ICA ####[facility] PATHOLOGY WNSCUUOQKE3929FjsesTcmoky[address] [place] [address], [address]Pbfnfmge [Moles/Vol]114 mmol/WZqqh34-441Tza [facility] SystemComment on above:Performed By: #### CR BGA, LACT, CR GLU, CR COOX, CR LYTES, CR ICA ####[facility] PATHOLOG[facility] MAWEXOEGZI9055PmrnwOqjlfs[address] [place] [address], [address]Nysvtogpm [Moles/Vol]4.1 mmol/LNormal3.5-5.0The [facility] SystemComment on above:Performed By: #### CR BGA, LACT, CR GLU, CR COOX, CR LYTES, CR ICA ####[facility] PATHOLOG[facility] YNHPOEFSGD7818RkkjtIuhihd[address] [place] [address], [address]Mjpiug [Moles/Vol]148 mmol/LUxzp665-912Cav [facility] SystemComment on above:Performed By: #### CR BGA, LACT, CR GLU, CR COOX, CR LYTES, CR ICA ####[facility] PATHOLOGY GYXEAYPDST9857FywgcTmuvow[address] [place] [address], [address]Bhvvxdci [Moles/Vol]115 mmol/EGqwa32-217Gfi [facility] SystemComment on above:Performed By: #### CR COOX, CR LYTES, LACT, CR ICA, CR BGA, CR GLU ####[facility] PATHOLOGY JFZVZCBRKR5143FirxcCffdzq[address] [place] [address], [address]Appiobtal [Moles/Vol]3.7 mmol/LNormal3.5-5.0The [facility] SystemComment on above:Performed By: #### CR COOX, CR LYTES, LACT, CR ICA, CR BGA, CR GLU ####[facility] PATHOLOGY OMSUBABHGI3931EynunJcwexh[address] [place] [address], [address]Qxjmxm [Moles/Vol]147 mmol/JBmjo370-098Nil [facility] SystemComment on above:Performed By: #### CR COOX, CR LYTES, LACT, CR ICA, CR BGA, CR GLU ####[facility] ULNUCLBWGW1281Rmvc[place], [address]UCSVJTD, FINGERSTICK-IN OFFICEon 82-90-5433Qnvosps [Mass/Vol]116 mg/cADidc36-604Imd [facility] SystemComment on above:Performed By: #### 19697 ####NURSING GLUCOSE NPQDTVR[address] [place] [address], 987[address]Rvvsphx [Mass/Vol]110 mg/nDSglkie94-036Kyf [facility] SystemComment on above:Performed By: #### 07541 ####NURSING GLUCOSE NSTYNKN[address] [place] [address], [address]Crxcxrh [Mass/Vol]124 mg/hHEhpt99-563Ogn [facility] SystemComment on above:Performed By: #### 36953 ####NURSING GLUCOSE SOPZAGB[address] [place] [address], [address]Nojglsy [Mass/Vol]61 mg/nAYoq88-686Dxb [facility] SystemComment on above:Performed By: #### 89993 ####NURSING GLUCOSE BYGFMGQ4425 [place], [place], [address]Bcapnbn [Mass/Vol]107 mg/dL Hoxxhg09-936Cqg [facility] SystemComment on above:Performed By: #### 56644 ####NURSING GLUCOSE PHNFYAI303[address] [place] [address], [address]Hlmcimw [Mass/Vol]104 mg/zXNmuuwq50-388Mbf [facility] SystemComment on above:Performed By: #### 66197 ####NURSING GLUCOSE RTHIJCC7195 [place], [place], [address]Pjoyoxh [Mass/Vol]59 mg/lOIkk06-179Eea [facility] SystemComment on above: Performed By: #### 23315 ####NURSING GLUCOSE IPJJNBC604[address] [place] [address], [address]SQJNZZI, WHOLE BLOODon 47-76-8139IC KGY603 mg/dLHigh 70-105The [facility] SystemComment on above:Performed By: #### CR GLU, CR ICA, LACT, CR BGA, CR COOX, CR LYTES ####[facility] PATHOLOGY YIWOAJLEMS9723TpoksMvqnjj[address] [place] [address], [address]JI YWE071 mg/lCVvud80-582Kpn [facility] System Comment on above:Performed By: #### CR COOX, CR LYTES, LACT, CR BGA, CR GLU, CR ICA ####[facility] PATHOLOGY VARINXHRHC6742CirekXudigx[address] [place] [address], [address]ZW XHW580 mg/dCLeqn78-231Rkb [facility] SystemComment on above:Performed By: #### CR BGA, LACT, CR GLU, CR COOX, CR LYTES, CR ICA ####[facility] PATHOLOGY FBQDYUQCNJ0972TazbwKyyxyv[address] [place] [address], [address]ZP VNQ931 mg/dLHigh 70-105The [facility] SystemComment on above:Performed By: #### CR COOX, CR LYTES, LACT, CR ICA, CR BGA, CR GLU ####[facility] PATHOLOGY RRJDTRKENB3497AwpskTybowy[address] [place] [address], AND Grayson 63-32-7929Kauqnmqdiqspz Authentication Interface Message Text[facility] SystemTranscription Authentication Interface Message TextNoMemorial Hospital SystemLACTIC ACIDon [id number] LACT0.9 mmol/LNormal0.5-1.6The [facility] SystemComment on above:Performed By: #### CR GLU, CR ICA, LACT, CR BGA, CR COOX, CR LYTES ####[facility] PATHOLOGY AKHRZZEIQD4357EshfbGxtasw[address] [place] [address], [address]XA LACT0.9 mmol/LNormal 0.5-1.6The [facility] SystemComment on above:Performed By: #### CR COOX, CR LYTES, LACT, CR BGA, CR GLU, CR ICA ####[facility] PATHOLOGY CQMFGLTOFY5205CecviCzncgv[address] [place] [address], [address]PD LACT1.0 mmol/LNormal0.5-1.6The [facility] SystemComment on above:Performed By: #### CR BGA, LACT, CR GLU, CR COOX, CR LYTES, CR ICA ####[facility] SUATVTAEGT1566TczljEjwjsu[address] [place] [address], [address]DG LACT0.8 mmol/LNormal0.5-1.6The [facility] SystemComment on above: Performed By: #### CR COOX, CR LYTES, LACT, CR ICA, CR BGA, CR GLU ####S PATHOLOGY BMEEGWUNIL0335BlotkEaitmp[address] [place] [address], [address]VJ LACT1.5 mmol/LNormal0.5-1.6The [facility] SystemComment on above:Performed By: #### LACT ####S PATHOLOGY DFPGVLXHKT9775[address] [place] [address], MAGNESIUMon 85-30-5591Qiltnrgsz [Mass/Vol]2.5 mg/dLNormal1.9-2.7The [facility]roHealth SystemComment on above:Result Comment: Note updated reference ranges.Performed By: #### MG, PHOS, CH8 ####[facility] PATHOLOGY XJDYWHKWQC0715[address] [place] [address], [address]Efdquphnn [Mass/Vol]2.6 mg/dLNormal1.9-2.7The [facility]ro[facility] SystemComment on above:Result Comment: Note updated reference ranges.Performed By: #### PHOS, CH8, MG ####[facility] PATHOLOGY YQIJWWLDFH[address] [place] [address], [address]RW Noteon 04-89-6564Rwswffrplivne Authentication Interface Message TextC[facility]kill [facility] SystemOR Nursingon 83-69-1157Wokjnfqylgfrm Authentication Interface Message TextReport given to 5 Yamile SAINZ 1950: let 5 yamile SAINZ know patient was on the way [facility] PHOSPHORUSon [phone] [Mass/Vol]4.1 mg/dLNormal2.5-5.0The [facility] SystemComment on above:Result Comment: Note updated reference ranges.Performed By: #### MG, PHOS, CH8 ####S PATHOLOGY BCMNWORJPH[address] [place] [address], [address]Fxmkcrows [Mass/Vol]3.6 mg/dLNormal2.5-5.0The [facility]Health SystemComment on above:Result Comment: Note updated reference ranges.Performed By: #### PHOS, CH8, MG ####[facility] BDMJPMTXWO7339 [place], [address]NBKEQNXGQGU TIME AND INRon 06-27-2023 INR Coag (PPP) [Relative time]1.10 {INR}Normal0.90-1.10The [facility] System Comment on above:Performed By: #### PT ####[facility] FQFAKJZGAR[address] [place] [address], [address]SF Coag (PPP) [Time]12.3 sNormal 9.7-12.9The [facility] SystemComment on above:Performed By: #### PT ####[facility] HKITPBQCAY0618[address] [place] [address], [address]Iuumflxkwnwt 08-60-6523Easjvfupfyjqq Authentication Interface Message TextNoMemorial Hospital SystemProgress Noteson 63-01-1051Ddldqhbynqzsi Authentication Interface Message TextPatient's dexcom and insulin machine is in family member's possession when patient went down to [place] @1235[facility] SystemTranscription Authentication Interface Message TextPt will potentially transfer to [facility] potentially after her OR 06/26 SW will continue to follow peripherally if needs arise Qasim Hamlin [facility] SystemTranscription Authentication Interface Message TextC[facility]kill [facility] SystemTranscription Authentication Interface Message TextC[facility]kill [facility] SystemTranscription Authentication Interface Message /LADARIUS mcgarry notified of critical Glucose value of 61. /LADARIUS mcgarry read back critical results. New orders received. Hypoglycemia protocol initiated. ~0916 recheck blood glucose. 124 D5LR cont. Fluids orderedNoMemorial Hospital SystemTranscription Authentication Interface Message TextNoFormerly [facility] HealthScintella Solutions SystemRED BLOOD CELL COMPONENTon [id number] ORDER ITEMProduct status info to followCatskill Regional Medical Center SystemComment on above:Performed By: #### RBO ####[facility] [id number] [place] [address], [id number] BLOOD CELL UNIT STATUSon [id number] PRODUCT [id number] [facility] SystemComment on above:Performed By: #### RBU ####S PATHOLOGY [id number] [place], [id number] PRODUCT DESCRIPTIONRed Blood CellsNoMemorial Hospital SystemComment on above:Performed By: #### RBU ####S PATHOLOGY [id number] [place] [address], [id number] PRODUCT STATUS Returned to Bld BnkNormalThe [facility] SystemComment on above:Performed By: #### RBU ####[facility] PATHOLOGY [id number] [place] [address], [id number] PRODUCT UNIT [id number] [facility] Comment on above:Performed By: #### RBU ####[facility] PATHOLOGY [id number] [place] [address], [address]GYVXD PRODUCT UNIT [id number] NormalThe [facility] SystemComment on above:Performed By: #### RBU ####[facility] PATHOLOGY UQEMRQGMT[address] [place] [address], [address]AEAFT PRODUCT UNIT [id number] Hospital SystemComment on above:Result Comment: A Pos Performed By: #### RBU ####S PATHOLOGY TMXACLVETU[address] [place] [address], [address]SEWFPPQYRF INTERPRETATIONCompatible (E)NormalBlanchard Valley Health System [facility] SystemComment on above:Performed By: #### RBU ####S PATHOLOGY RIVVBFZBSX[address] [place] [address], [address]NZ ABDOMEN AP 1 VIEWon 58-75-5500GI ABDOMEN AP 1 VIEWCatskill Regional Medical Center SystemBASIC METABOLIC PANEL on 96-18-4817Qmihb gap [Moles/Vol]12 mmol/ITkbkff53-40Scf [facility] System Comment on above:Performed By: #### CH8, MG, PHOS ####[facility] AEOIKMFJTX[address]25[address] [place] [address], [address]Yswqxrw [Mass/Vol]7.9 mg/dLLow8.6-10.3The [facility] SystemComment on above:Performed By: #### MG RADHIKA, PHOS ####[facility] PATH[facility] PDGNNDJMRG2192 [place], [place], [address]Chloride [Moles/Vol]110 mmol/KVugg85-730Lod [facility] SystemComment on above:Performed By: #### MG RADHIKA, PHOS ####[facility] PATH[facility]Y JWORQEKABK2028 [place], [address]NN4 [Moles/Vol]23 mmol/EScnhuc57-96Iot [facility] SystemComment on above:Performed By: #### MG RADHIKA, PHOS ####[facility] PATH[facility]Y AQJJBPTPJD7338 [place], [address]Nnburklzsz [Mass/Vol]2.16 mg/dLHigh0.60-1.20The [facility] SystemComment on above: Performed By: #### MG RADHIKA, PHOS ####[facility] PATH[facility] RGMMRUXXHV1189 [place], [address]PAOFEIOGQ GFR (CKD-EPI)26 mL/min/1.73sqmLow>=60The [facility] SystemComment on above:Result Comment: 2020 CKD EPI Equation using Creatinine without RaceComment: Estimated glomerular filtration rate (eGFR) is calculated without a race coefficient. Values should be interpreted in the co ntext of the patient's full clinical presentation.Reference:1. Cooper C, Liv M, Karyn VILCHIS, et al.. A Unifying Approach for GFR Estimation: Recommendations of the NKF-ASN Task Force on Reassessing the Inclusion of Race in Diagnosing Kidney Disease. Thai Journal of Kidney Diseases 202;79(2):268-88.e1.2. N Engl J Med 1 Vol. 385 Issue 19 Pages 8849-7573Performed By: #### RADHIKA MG, PHOS ####[facility] PATH[facility] FZCKLUOFDV6943 [place], [place], Glucose [Mass/Vol]191 mg/bNEygd43-930Quk [facility] SystemComment on above: Performed By: #### RADHIKA MG, PHOS ####[facility] PATH[facility] MBBLFGYEEL6923 [place], [address]Gsokngjcn [Moles/Vol]5.4 mmol/LHigh3.5-5.0The [facility] By [facility] SystemComment on above:Performed By: #### CH8MG, BILL ####S PATHOLOGY HLUGMYUNGJ8809 [place], [address]Kdyber [Moles/Vol]140 mmol/SOjloci850-317Pnf [facility] By [facility] SystemComment on above: Performed By: #### CH8, MG, PHOSangeetha ####S PATHOLOGY TSERVTCDPM6620 [place], [address]Bkws nitrogen [Mass/Vol]49 mg/dLHigh7-25The [facility] SystemComment on above:Performed By: #### CH8MG, BILL ####[facility] PATHOLOGY FCROJVBQWO4178 [place], [address]KGYMCDKS BLOOD COUNTon 34-03-8080Bnkyhitdcva distribution width (RBC) [Ratio]16.0 %High 11.5-14.5The [facility] SystemComment on above:Performed By: #### CBC ####[facility] PATHOLOGY OBBEGSUCQO5303 [place], [address]Qazjedgobs (Bld) [Volume fraction]33.1 %Low36.0-46.0The [facility] SystemComment on above: Performed By: #### CBC ####[facility] PATHOLOGY OSPNXNSJGO1076 [place], [address]Nmmjuroomm (Bld) [Mass/Vol]11.1 g/dLLow12.0-15.0 The [facility] SystemComment on above:Performed By: #### CBC ####S PATHOLOGY SOCCGTJYQK3754 [place], [address]CVD (RBC) [Entitic mass]29.9 izGvozem74.0-34.0The [facility] SystemComment on above:Performed By: #### CBC ####S PATHOLOGY NXBYWDOQDY1478 [place], [address]XKPM (RBC) [Mass/Vol]33.5 g/vXQlzlcn80.0-35.9The [facility] Comment on above:Performed By: #### CBC ####[facility] PATHOLOGY OXIXBRJFJQ[address] [place] [address], [address]USY (RBC) [Entitic vol]89 fLNormal 80-100The [facility] SystemComment on above:Performed By: #### CBC ####[facility] PATHOLOGY MJCIBKBJXZ8528[address] [place] [address], [address]Derbdtaj mean volume (Bld) [Entitic vol]9.1 fLNormal7.5-11.2The [facility] By [facility] SystemComment on above:Performed By: #### CBC ####[facility] PATHOLOGY SILRSKIKGT[address] [place] [address], [address]Swzwjwhbx (Bld) [#/Vol]135 10*3/qUVtu550-434Ocw [facility] SystemComment on above:Performed By: #### CBC ####[facility] PATHOLOGY EKEHVTWTHL5104[address] [place] [address], [address]OCJ (Bld) [#/Vol]3.71 10*6/uLLow4.00-5.20The [facility] SystemComment on above:Performed By: #### CBC ####[facility] PATHOLOGY ZIEBZCLTYD347[address] [place] [address], [address]FXZ (Bld) [#/Vol]11.6 10*3/uLHigh4.5-11.5The [facility] SystemComment on above: Performed By: #### CBC ####[facility] PATHOLOGY VRUBHGXPIS9380[address] [place] [address], [address]Epnr Plan Noteon 39-96-5884Omfptfgkxqpku Authentication Interface Message TextNormCentra [facility] HospitalroMet[facility] SystemConsultson [phone] Authentication Interface Message TextNormCentra Virginia [facility] HospitalroMetro[facility] SystemTranscription Authentication Interface Message TextNormKettering Health [facility]al [facility] SystemGLUCOSE, FINGERSTICK-IN OFFICEon 68-11-9637Upooomg [Mass/Vol] 91 mg/iGNvlhwn49-753Pjq [facility] SystemComment on above:Performed By: #### [address] ####NURSING GLUCOSE HEOSTWF5653 [place], [address] LACTIC ACIDon 30-89-2578GF LACT1.4 mmol/LNormal0.5-1.6The [facility] System Comment on above:Performed By: #### LACT ####S PATHOLOGY ZDBTLXHTEU4634 [place], [address]XI LACT1.9 mmol/LHigh0.5-1.6The [facility] SystemComment on above:Performed By: #### LACT ####[facility] PATH[facility]Y EVYLNOSOQM5952 [place], [address]KUAWRHRXTmw 06-26-2023 Magnesium [Mass/Vol]1.4 mg/dLLow1.9-2.7The [facility] SystemComment on above: Result Comment: Note updated reference ranges.Performed By: #### CH8, MG, PHOS ####S PATHOLOGY MRUCPIEHZJ8328[address] [place] [address], PHOSPHORUSon 94-21-7099Lpxumjuvs [Mass/Vol]4.2 mg/dLNormal2.5-5.0The [facility] SystemComment on above:Result Comment: Note updated reference ranges.Performed By: #### CH8, MG, PHOS ####[facility] PATHOLOGY HFUPWAOTQW0887[address] [place] [address], [address]Xgxvnzit Noteson 79-43-6273Jneyhlwvefwno Authentication Interface Message TextCatskill Regional [facility] SystemTranscription Authentication Interface Message TextCatskill Regional Medical Center SystemTranscription Authentication Interface Message Text06/26/23 0432 Vital Signs SpO2 85 % MD Juan Chambers notified of O2.NormalThe [facility] SystemXR ABDOMEN AP 1 VIEWon 88-33-2976DH ABDOMEN AP 1 VIEWNormSouthview Medical Centere [facility]Health SystemXR ABDOMEN AP 1 VIEW NormalThe [facility] SystemXR CHEST AP OR PA 1 VIEWon 95-29-8067IO CHEST AP OR PA 1 VIEWNormCentra Virginia Baptist HospitalroMetrohealth [facility] SystemABO RH TYPEon 17-96-9009TZT and Rh group Nom (Bld)Blood group A Rh(D) positiveNoMemorial Hospital SystemComment on above:Performed By: #### ABORH ####[facility] PATHOLOGY RKXCACUYXC1465 [place], [address]RCIFO METABOLIC PANELon 58-60-6097Onzvk gap [Moles/Vol]16 mmol/EInyngx97-65Pyg [facility] SystemComment on above:Performed By: #### CH8 ####[facility] PATHOLOGY CSFSYBHDZP9486 [place], [address]Dxtrjjw [Mass/Vol]8.0 mg/dLLow8.6-10.3The [facility] SystemComment on above:Performed By: #### CH8 ####[facility] PATHOLOGY UMNONYNCOL5664 [place], [address]Gidgamts [Moles/Vol]110 mmol/PBocu01-356Smq [facility] SystemComment on above:Performed By: #### CH8 ####[facility] PATHOLOGY ZJAKTTAWID7363 [place], [address]IW3 [Moles/Vol]22 mmol/CWwehex01-17Jsq [facility] SystemComment on above:Performed By: #### CH8 ####[facility] PATHOLOGY VFKNNJLPTN7123 [place], Creatinine [Mass/Vol]1.86 mg/dLHigh0.60-1.20The [facility] By [facility] SystemComment on above:Performed By: #### CH8 ####[facility] PATHOLOGY SVTUZJYSJK3823 [place], [address]EGTABMHQD GFR (CKD-EPI)31 mL/min/1.73sqmLow>=60The [facility] SystemComment on above:Result Comment: 2020 CKD EPI Equation using Creatinine without RaceComment: Estimated glomerular filtration rate (eGFR) is calculated without a race coefficient. Values should be interpreted in the co ntext of the patient's full clinical presentation.Reference:1. Cooper C, Liv M, Karyn VILCHIS, et al.. A Unifying Approach for GFR Estimation: Recommendations of the NKF-ASN Task Force on Reassessing the Inclusion of Race in Diagnosing Kidney Disease. [place] Journal of Kidney Diseases 202;79(2):268-88.e1.2. N Engl J Med 1 Vol. 385 Issue 19 Pages 1738-1747Performed By: #### CH8 ####S PATHOLOGY OBODRYWFZN3338 [place], [address]Jjzmqle [Mass/Vol]107 mg/wWHnlwcm51-681Pqw [facility] SystemComment on above:Performed By: #### CH8 ####[facility] PATHOLOGY HGYQXTVWTC6212 [place], [address]Djyoziabz [Moles/Vol]4.7 mmol/LNormal3.5-5.0The [facility] Comment on above:Performed By: #### CH8 ####[facility] PATHOLOGY VCFKJGLQCV3333 [place], [address]Vzytka [Moles/Vol]143 mmol/LNormal 136-145The [facility] By [facility] SystemComment on above:Performed By: #### CH8 ####[facility] PATHOLOGY CGZQXHABOE2083 [place], [address]Lwwm nitrogen [Mass/Vol]41 mg/dLHigh7-25The [facility] By [facility] SystemComment on above:Performed By: #### CH8 ####[facility] PATHOLOGY USXCNCRMXB9188 [place], [address]Ciils gap [Moles/Vol]13 mmol/HPtixbi45-12Mrg [facility] SystemComment on above:Performed By: #### CH8 ####[facility] PATHOLOGY LFYVZADZEP3462 [place], [address]Isixppm [Mass/Vol]8.4 mg/dLLow8.6-10.3The [facility] SystemComment on above:Performed By: #### CH8 ####S PATHOLOGY UEBEHYFUTT3448 [place], [address]Gldhgeju [Moles/Vol]110 mmol/NMtvm30-603Ggi [facility] SystemComment on above:Performed By: #### CH8 ####[facility] PATHOLOGY WREDKGGSVY0859 [place], [address]XU7 [Moles/Vol]22 mmol/RUxnxgr90-53Tts [facility] SystemComment on above:Performed By: #### CH8 ####[facility] PATHOLOGY XMUPYZKMMY2865 [place], [address]Waoijblcwl [Mass/Vol]1.40 mg/dLHigh0.60-1.20The [facility] Comment on above:Performed By: #### CH8 ####S PATHOLOGY QPIMGBSRQT2936 [place], [address]IOJAQMCXQ GFR (CKD-EPI)44 mL/min/1.73sqmLow>=60The [facility] SystemComment on above:Result Comment: 2020 CKD EPI Equation using Creatinine without RaceComment: Estimated glomerular david tration rate (eGFR) is calculated without a race coefficient. Values should be interpreted in the context of the patient's full clinical presentation.Reference:1. Cooper C, Liv M, Karyn VILCHIS, et al.. A Unifying Approach for GFR Estimation: Recommendations of the NKF-ASN Task Force on Reassessing the Inclusion of Race in Diagnosing Kidney Disease. [place] Journal of Kidney Diseases 2021;79(2):268-88.e1.2. N Engl J Med 1 Vol. 385 Issue 19 Pages 9182-3438Performed By: #### CH8 ####S PATHOLOGY SCLILVJAOA2042 [place], [address]Cfemyxq [Mass/Vol]129 mg/fVUaau48-607 The [facility] SystemComment on above:Performed By: #### CH8 ####S PATHOLOGY VWDDOSINAF6879 [place], [address]Kpinufzgr [Moles/Vol] 3.2 mmol/LLow3.5-5.0The [facility] SystemComment on above:Performed By: #### CH8 ####S PATHOLOGY SSQWVALMQI4186 [place], Sodium [Moles/Vol]142 mmol/VEpwtdz459-217Vsq [facility]ro[facility] SystemComment on above: Performed By: #### CH8 ####S PATHOLOGY SFKKPMJEBU0763 [place], [address]Sbbq nitrogen [Mass/Vol]30 mg/dLHigh7-25The [facility] SystemComment on above:Performed By: #### CH8 ####[facility] PATHOLOGY YLCOJDTYIB7976[address] [place] [address], [address]IMS WITH DIFFERENTIALon 19-86-9807Zoamhqenyuk distribution width (RBC) [Ratio]15.9 %High11.5-14.5The [facility] SystemComment on above:Performed By: #### HARRIS POSEY ####[facility] PATHOLOGY DNBLOTVOQY0630[address] [place] [address], [address]Bxovfwihcp (Bld) [Volume fraction]31.6 %Low36.0-46.0The [facility] SystemComment on above: Performed By: #### HARRIS POSEY ####S PATHOLOGY JFZDSARAPZ3494[address] [place] [address], [address]Jmnjxnxaua (Bld) [Mass/Vol]10.4 g/dLLow12.0-15.0 The [facility] SystemComment on above:Performed By: #### HARRIS POSEY ####[facility] PATHOLOGY OJPUQBKJPS414[address] [place] [address], [address]IXJ (RBC) [Entitic mass]30.2 rzLgdkfl61.0-34.0The [facility] SystemComment on above: Performed By: ###HARRIS MCDONNELL ####[facility] PATHOLOGY SBTGUHBYLG5253[address] [place] [address], [address]FOGH (RBC) [Mass/Vol]32.9 g/iBGrvqrt50.0-35.9The [facility] SystemComment on above:Performed By: #### HARRIS POSEY ####[facility] PATHOLOGY WXXEFBNZTX527[address] [place] [address], [address]BFN (RBC) [Entitic vol]92 mNQnpwqt43-174Tpz [facility] SystemComment on above:Performed By: ###HARRIS MCDONNELL ####S PATHOLOGY ECUGESFVKQ7999[address] [place] [address], [address]PVZGZRSC DISTRIBUTION GJFET35Hhcc<=20The [facility] SystemComment on above:Performed By: #### HARRIS POSEY ####S PATHOLOGY FQFPGLOAWN1532[address] [place] [address], [address]Syuhzvyl mean volume (Bld) [Entitic vol]9.0 fLNormal7.5-11.2The [facility] SystemComment on above:Performed By: ###HARRIS MCDONNELL ####S PATHOLOGY EZVNUEFXEI7598[address] [place] [address], [address]Ynqfhokae (Bld) [#/Vol]140 10*3/uLLow 150-400The [facility] SystemComment on above:Performed By: #### HARRIS POSEY ####[facility] PATHOLOGY TKSEPNDIED698[address] [place] [address], [address]QON (Bld) [#/Vol]3.45 10*6/uLLow4.00-5.20The [facility] SystemComment on above: Performed By: ###HARRIS MCDONNELL ####[facility] PATHOLOGY HFGJSWLLPN7325[address] [place] [address], [address]DKP (Bld) [#/Vol]15.5 10*3/uLHigh4.5-11.5The [facility] SystemComment on above:Performed By: ###HARRIS MCDONNELL ####[facility] PATHOLOGY BDKTVRQLSX3187[address] [place] [address], [address]Bcvaudddqej distribution width (RBC) [Ratio]15.2 %High11.5-14.5The [facility] By [facility] SystemComment on above:Performed By: ###HARRIS MCDONNELL ####[facility] PATHOLOGY TLBBOCKWIR1859[address] [place] [address], [address]Exkavgdxda (Bld) [Volume fraction]36.4 %Suaylk29.0-46.0The [facility] SystemComment on above:Performed By: ###HARRIS MCDONNELL ####[facility] PATHOLOGY CIRTXXRBFR1910[address] [place] [address], [address]Cehkvfgntc (Bld) [Mass/Vol]12.1 g/lROjfrmx71.0-15.0The [facility] SystemComment on above:Performed By: ###HARRIS MCDONNELL ####[facility] PATHOLOGY XOOQMUJEPB[address] [place] [address], [address]HMQ (RBC) [Entitic mass]29.7 tqKeatzl56.0-34.0The [facility] SystemComment on above:Performed By: ###HARRIS MCDONNELL ####S PATHOLOGY UCBWXUBXKN2495[address] [place] [address], [address]BLBE (RBC) [Mass/Vol]33.1 g/cGVdolwq24.0-35.9The [facility] SystemComment on above:Performed By: #### HARRIS POSEY ####[facility] PATHOLOGY HIGGXUQTEU2570[address] [place] [address], [address]ZYL (RBC) [Entitic vol] 90 nJWhscjb01-518Van [facility] SystemComment on above:Performed By: ###HARRIS MCDONNELL ####[facility] PATHOLOGY TLSJXBDPTV0574[address] [place] [address], [address]Ihuzkhrj mean volume (Bld) [Entitic vol]8.1 fLNormal7.5-11.2The [facility] SystemComment on above:Performed By: ###HARRIS MCDONNELL ####[facility] PATHOLOGY LUCHNQZHFA9624[address] [place] [address], [address]Yjqutitph (Bld) [#/Vol]176 10*3/jJXmkxsk886-241Quw [facility] SystemComment on above: Performed By: ###HARRIS MCDONNELL ####[facility] PATHOLOGY THCCXWJDPD997[address] [place] [address], [address]GHX (Bld) [#/Vol]4.06 10*6/uLNormal4.00-5.20The [facility] SystemComment on above:Performed By: ###HARRIS MCDONNELL ####S PATHOLOGY MXSPNIKFBZ4564[address] [place] [address], [address]KCG (Bld) [#/Vol]5.1 10*3/uLNormal4.5-11.5The [facility] SystemComment on above:Performed By: ###HARRIS MCDONNELL ####S PATHOLOGY IQBMEEOMDS7746[address] [place] [address], [address]Thfr Plan Noteon 85-11-1010Tcxurzxlxtvjb Authentication Interface Message TextNoMemorial Hospital SystemED Noteson 23-50-1776Qhknydrkdhdsv Authentication Interface Message Text.. Dr ROMAN notified of critical LACTATE value of 3.3. Hard copy of results given to .[facility] SystemTranscription Authentication Interface Message TextDrGiancarlo BONE notified of critical LACTATE value of 5.6. Hard copy of results given to Dr. TABARES. [facility] SystemTranscription Authentication Interface Message TextDrGiancarlo VASQUES notified of critical LACTATE value of 3.5. Hard copy of results given to Dr. Ulises VASQUES. [facility] SystemED Provider Noteson 06-25-2023 Lapping Machine Set Up Operator Authentication Interface Message TextNoMemorial [facility] Lapping Machine Set Up Operator Authentication Interface Message TextNo[facility] Lapping Machine Set Up Operator Authentication Interface Message TextNo[facility] Lapping Machine Set Up Operator Authentication Interface Message TextNoMemorial Hospital SystemH AND [place] 96-72-1910Cirhhxopsbkpk Authentication Interface Message TextCatskill [facility] Center SystemLACTATE WITH REPEAT EDon 35-35-1165AC LACT3.3 mmol/LCritically high0.5-1.6The [facility] SystemComment on above:Performed By: #### LACTREPEAT ####S PATHOLOGY FVGFAKGEFB1247[address] [place] [address], [address]KO LACT3.5 mmol/LCritically high0.5-1.6The [facility] SystemComment on above: Performed By: #### LACTREPEAT ####S PATHOLOGY EDOLDGMSWC9796 [place], [address]LYIABE ACIDon 62-12-5547JG LACT5.6 mmol/L Critically high0.5-1.6The [facility] SystemComment on above:Performed By: #### LACT ####S PATHOLOGY EBYDVKPMKA464[address] [place] [address], MANUAL DIFF AND MORPHon 12-47-8366KFAJAFCEDXXFIdolkjYvlwkjUop [facility] Comment on above:Performed By: ###HARRIS MCDONNELL ####[facility] PATHOLOGY AVVEPVBLVY9287 [place], [address]QFAUE % BY MANUAL COUNT 17 %High<=10The [facility] SystemComment on above:Performed By: ###HARRIS MCDONNELL ####[facility] PATHOLOGY JMCTSSZXLU8328 [place], [place], [address]BANDS ABS BY MANUAL COUNT2.64 K/uLHigh<0.01The [facility] System Comment on above:Performed By: ###HARRIS MCDONNELL ####S PATHOLOGY MRPIQBQFQQ[address]01[address] [place] [address], [address]HGEKJ COUNTED TOTAL # IN QABGV481JufuolObc [facility] SystemComment on above:Performed By: ###HARRIS MCDONNELL ####S PATHOLOGY GMVFCCUQZI0096[address] [place] [address], [address]RRUIWPEJRJC % BY MANUAL COUNT2.0 %Low24.0-44.0The [facility] System Comment on above:Performed By: ###HARRIS MCDONNELL ####S PATHOLOGY FPALVGYFFC[address] [place] [address], [address]XRFNECQSJSS ABS BY MANUAL COUNT0.31 K/uLLow1.00-4.80The [facility] SystemComment on above: Performed By: ###HARRIS MCDONNELL ####S PATHOLOGY KARKPQIWYL380[address] [place] [address], [address]RLKNSNOECRGLBE % BY MANUAL COUNT8 %High<0The [facility] SystemComment on above:Performed By: ###HARRIS MCDONNELL ####S PATHOLOGY SZOVKFXZPU6257[address] [place] [address], METAMYELOCYTES ABS BY MANUAL COUNT1.24 K/uLHigh<0.01The [facility] System Comment on above:Performed By: ###HARRIS MCDONNELL ####[facility] PATHOLOGY BCIFEEHAMN9308[address] [place] [address], [address]YNFMKEFYP % BY MANUAL COUNT1.0 %Low2.0-11.0The [facility] SystemComment on above:Performed By: #### HARRIS POSEY ####S PATHOLOGY FINWYYJROW9473 [place], [address]SHDILJJFN ABS BY MANUAL COUNT0.16 K/uLLow0.20-1.00The [facility] SystemComment on above:Performed By: ###HARRIS MCDONNELL ####[facility] PATHOLOGY SJDLHYEEIO7992 [place], [address]WGSMMQWQYT % BY MANUAL COUNT7 %High<0The [facility] SystemComment on above:Performed By: #### HARRIS POSEY ####S PATHOLOGY SEPBQNYLPO8186[address] [place] [address], [address] 410MYELOCYTES ABS BY MANUAL COUNT1.09 K/uLHigh<0.01The [facility] System Comment on above:Performed By: #### HARRIS POSEY ####[facility] PATHOLOGY USKKQSRTHI[address] [place] [address], [address]DBSEPSSQCQR % BY MANUAL COUNT65.0 %Ktpqjr76.0-76.0The [facility] SystemComment on above:Performed By: #### HARRIS POSEY ####[facility] PATHOLOGY KCPPJYINJT1496[address] [place] [address], [address]CRNKLLFMBOH ABS BY MANUAL COUNT10.08 K/uLHigh1.50-8.00The [facility] SystemComment on above:Performed By: ###HARRIS MCDONNELL ####S PATHOLOGY EYLJHAGNJZ9828[address] [place] [address], [address]LEWZVIHYIKNjr NormalThe [facility] SystemComment on above:Performed By: #### HARRIS POSEY ####S PATHOLOGY NYBLLVHLBQ5578[address] [place] [address], [address]HSSQL % BY MANUAL COUNT4 %Normal<=10The [facility] SystemComment on above:Performed By: #### HARRIS POSEY ####S PATHOLOGY NQLYPQAUHR7157[address] [place] [address], [address]REUZH ABS BY MANUAL COUNT0.20 K/uLHigh<0.01The [facility] SystemComment on above:Performed By: #### HARRIS POSEY ####[facility] PATHOLOGY [id number] [place], [address]JHWCC COUNTED TOTAL # IN CFVXI000AlehdxLyuCatskill Regional Medical Center SystemComment on above:Performed By: #### HARRIS POSEY ####S PATHOLOGY FHWLAVGHRV4206 [place], [address]EMPFIRDWISY % BY MANUAL COUNT7.0 %Low24.0-44.0The [facility], Operated By [facility] SystemComment on above:Performed By: #### HARRIS POSEY ####[facility] PATHOLOGY PRKVROVEOY[address] [place] [address], [address]XMFUTGRKEWM ABS BY MANUAL COUNT0.36 K/uLLow1.00-4.80The [facility] SystemComment on above: Performed By: #### HARRIS POSEY ####S PATHOLOGY OCKTTYAPCY[address] [place] [address], [address]ZLAYPHOGMXK % BY MANUAL COUNT89.0 %High31.0-76.0 The [facility] SystemComment on above:Performed By: #### HARRIS POSEY ####[facility] PATHOLOGY LMKZYNTWFN[address] [place] [address], [phone] ABS BY MANUAL COUNT4.54 K/uLNormal1.50-8.00The [facility] SystemComment on above:Performed By: #### HARRIS POSEY ####[facility] PATHOLOGY TBNEHFBPQT[address] [place] [address], [address]EUHIVLQXBMAbeWykmbmGqo [facility] SystemComment on above:Performed By: #### HARRIS POSEY ####[facility] PATHOLOGY WNMJQTJXVE[address] [place] [address], [address]CXJBRQKCQNTWHDjxwev NormalThe [facility] SystemComment on above:Performed By: ###HARRIS MCDONNELL ####[facility] PATHOLOGY DOJAZQZTBK[address] [place] [address], PARTIAL THROMBOPLASTIN TIMEon 65-09-2258lAEJ Coag (Bld) [Time]25 pBadhxi61-53Mwh [facility], Operated By [facility] SystemComment on above:Performed By: #### APTT, PT ####[facility] PATHOLOGY WPMQCRVAFK3565 [place], [address]XVKIMQNQIXF TIME AND INRon 18-11-0747VXM Coag (PPP) [Relative time]1.15 {INR}High0.90-1.10 The [facility] SystemComment on above:Performed By: #### APTT, PT ####[facility] PATHOLOGY FNHPKIZGLU0349 [place], [address]UH Coag (PPP) [Time]12.9 sNormal9.7-12.9The [facility] SystemComment on above:Performed By: #### APTT, PT ####[facility] PATHOLOGY HIOZNNQTWX[address] [place] [address], [address]Nhxpxhob Noteson 16-88-0348Yxhnntqkkuzcb Authentication Interface Message TextNormCentra Virginia Baptist HospitalroMetrohealth [facility] SystemTranscription Authentication Interface Message TextNoAtrium Health Pineville Rehabilitation HospitalroMetro[facility] SystemTranscription Authentication Interface Message TextNoAtrium Health Pineville Rehabilitation HospitalroMetrohealth [facility] SystemTYPE AND SCREENon 86-42-6606KHP and Rh group Nom (Bld)Blood group A Rh(D) positiveNormalThe [facility] HospitalroMetro[facility] SystemComment on above:Performed By: #### TS ####[facility] PATHOLOGY ETKBOIFGIM[address] [place] [address], [address]ECM and Rh group Nom (Bld)No Previous Results NormalThe [facility] HospitalroMetrohealth [facility] SystemComment on above:Performed By: #### TS ####[facility] PATHOLOGY GSZYYUMPYZ64[address] [place] [address], [address]VIPI INT NegativeNormalThe [facility] SystemComment on above:Performed By: #### TS ####[facility] PATHOLOGY IXYSGNPZEU[address] [place] [address], URINALYSIS WITH REFLEX CULTURE PERFORMABLEon 63-86-5129Aqorxjz Ql (U)Negative NormalNegativeThe [facility] HospitalroHealth SystemComment on above:Order Comment: A negative leukocyte esterase AND negative nitrite test or absence of pyuria (urine WBC count <= 5-10) make a UTI (urinary tract infection) very unlikely in a non- neutropenic adult (<=5% likelihood in many studies). A positive leukocyte esterase, nitrite and/or pyuria is a nonspecific result. This can be seen in conditions other than a UTI e.g. asymptomatic bacteriuria, gynecologic infections, sexually transmitted infections, and noninfectious conditions (positive predictive value for UTI around 50%)Performed By: #### C URINE ####[facility] Ysyshcorg[address] [place], [place] [id number]#### urinalysiswcul ####[facility] PATHOLOGY YBRBPOBWUT8799[address] [place] [address], [address]Agtegaz (U) [Mass/Vol]100 mg/dLAbnormalNegativeThe [facility] System Comment on above:Order Comment: A negative leukocyte esterase AND negative nitrite test or absence of pyuria (urine WBC count <= 5-10) make a UTI (urinary tract infection) very unlikely in a non-neutropenic adult (<=5% likelihood in many studies). A positive leukocyte esterase, nitrite and/or pyuria is a nonsp ecific result. This can be seen in conditions other than a UTI e.g. asymptomatic bacteriuria, gynecologic infections, sexually transmitted infections, and noninfectious conditions (positive predictive value for UTI around 50%)Performed By: #### C URINE ####[facility] Qctdxmupy[address] [place], [place] [id number]#### urinalysiswcul ####[facility] PATHOLOGY FFYIMJOCRI[address] [place] [address], [address]FDUEUGAS WAUMJXARLR9-7Dzrxad1-05Dcw [facility] SystemComment on above:Order Comment: A negative leukocyte esterase AND negative nitrite test or absence of pyuria (urine WBC count <= 5-10) make a UTI (urinary tract infection) very unlikely in a non-neutropenic adult (<=5% likelihood in many studies). A positive leukocyte esterase, nitrite and/or pyuria is a nonsp ecific result. This can be seen in conditions other than a UTI e.g. asymptomatic bacteriuria, gynecologic infections, sexually transmitted infections, and noninfectious conditions (positive predictive value for UTI around 50%)Performed By: #### C URINE ####[facility] Aatpqyfpv[address] [place], [place] [id number]#### urinalysiswcul ####[facility] PATHOLOGY TVVNCUXUIB8198 [place], [address]RMZWRB PHOSPHATE CRYSTALSModerateNormalThAultman Orrville Hospital SystemComment on above:Order Comment: A negative leukocyte esterase AND negative nitrite test or absence of pyuria (urine WBC count <= 5-10) make a UTI (urinary tract infection) very unlikely in a non-neutropenic adult (<=5% likelihood in many studies). A positive leukocyte esterase, nitrite and/or pyuria is a nonspecific result. This can be seen in conditions other than a UTI e.g. asymptomatic bacteriuria, gynecologic infections, sexually transmitted infections, and noninfectious conditions (positive predictive value for UTI around 50%)Performed By: #### C URINE ####[facility] Qrbktapsw[address] [place], [place] [id number]#### urinalysiswcul ####[facility] PATHOLOGY PHDVPVTQYK6188[address] [place] [address], [address]K APPEARTurbidNormalClearBlanchard Valley Health System [facility] SystemComment on above:Order Comment: A negative leukocyte esterase AND negative nitrite test or absence of pyuria (urine WBC count <= 5-10) make a UTI (urinary tract infection) very unlikely in a non-neutropenic adult (<=5% likelihood in many studies). A positive leukocyte esterase, nitrite and/or pyuria is a nonspecific result. This can be seen in conditions other than a UTI e.g. asymptomatic bacteriuria, gynecologic infections, sexually transmitted infections, and noninfectious conditions (positive predictive value for UTI around 50%)Performed By: #### C URINE ####[facility] Knqxqiurp1930[address] [place], [place] [id number]#### urinalysiswcul ####[facility] PATHOLOGY MEMFCOUZBR9310[address] [place] [address], [address]O BILINegativeNormalNegativeBlanchard Valley Health System [facility] SystemComment on above:Order Comment: A negative leukocyte esterase AND negative nitrite test or absence of pyuria (urine WBC count <= 5-10) make a UTI (urinary tract infection) very unlikely in a non-neutropenic adult (<=5% likelihood in many studies). A positive leukocyte esterase, nitrite and/or pyuria is a nonspecific result. This can be seen in conditions other than a UTI e.g. asymptomatic bacteriuria, gynecologic infections, sexually transmitted infections, and noninfectious conditions (positive predictive value for UTI around 50%)Performed By: #### C URINE ####[facility] Qgexwlpmj0804 [place], [place]#### urinalysiswcul ####[facility] PATHOLOGY YADORXWPYO[address] [place] [address], [address]N BLOODSmallAbnormalNegativeThe [facility] SystemComment on above:Order Comment: A negative leukocyte esterase AND negative nitrite test or absence of pyuria (urine WBC count <= 5-10) make a UTI (urinary tract infection) very unlikely in a non-neutropenic adult (<=5% likelihood in many studies). A positive leukocyte esterase, nitrite and/or pyuria is a nonspecific result. This can be seen in conditions other than a UTI e.g. asymptomatic bacteriuria, gynecologic infections, sexually transmitted infections, and noninfectious conditions (positive predictive value for UTI around 50%)Performed By: #### C URINE ####[facility] Hometoftj[address] [place], [place] [id number]#### urinalysiswcul ####[facility] PATHOLOGY YUIGPZVJWY04[address] [place] [address], [address]M COLORLight OrangeNormalColorlessThe [facility] SystemComment on above:Order Comment: A negative leukocyte esterase AND negative nitrite test or absence of pyuria (urine WBC count <= 5-10) make a UTI (urinary tract infection) very unlikely in a non-neutropenic adult (<=5% likelihood in many studies). A positive leukocyte esterase, nitrite and/or pyuria is a nonspecific result. This can be seen in conditions other than a UTI e.g. asymptomatic bacteriuria, gynecologic infections, sexually transmitted infections, and noninfectious conditions (positive predictive value for UTI around 50%)Performed By: #### C URINE ####[facility] Bhmazjvos[address] [place], [place] [id number]#### urinalysiswcul ####[facility] PATHOLOGY OLCDYEYJIB5[address] [place] [address], [address]X KETONENegativeNormalNegativeBlanchard Valley Health System [facility] SystemComment on above:Order Comment: A negative leukocyte esterase AND negative nitrite test or absence of pyuria (urine WBC count <= 5-10) make a UTI (urinary tract infection) very unlikely in a non-neutropenic adult (<=5% likelihood in many studies). A positive leukocyte esterase, nitrite and/or pyuria is a nonspecific result. This can be seen in conditions other than a UTI e.g. asymptomatic bacteriuria, gynecologic infections, sexually transmitted infections, and noninfectious conditions (positive predictive value for UTI around 50%)Performed By: #### C URINE ####[facility] Pkccgbwem[address] [place], [place] [id number]#### urinalysiswcul ####[facility] PATHOLOGY DMZSSMLLOR0985[address] [place] [address], [address]Q LEUKPositiveAbnormalNegativeBlanchard Valley Health System [facility] SystemComment on above:Order Comment: A negative leukocyte esterase AND negative nitrite test or absence of pyuria (urine WBC count <= 5-10) make a UTI (urinary tract infection) very unlikely in a non-neutropenic adult (<=5% likelihood in many studies). A positive leukocyte esterase, nitrite and/or pyuria is a nonspecific result. This can be seen in conditions other than a UTI e.g. asymptomatic bacteriuria, gynecologic infections, sexually transmitted infections, and noninfectious conditions (positive predictive value for UTI around 50%)Result Comment: Normal urine specimens will not produce a positive reaction. Small amounts of leukocyte esterase, causing a positive reaction should be repeated, using a fresh urine specimen, from the same patient. Positive results require further testing for pyuria.Performed By: #### C URINE ####[facility] Yhxqtjzcb[address] [place], [place] [id number]#### urinalysiswcul ####S PATHOLOGY TOCRQPXLAE2686[address] [place] [address], [address]I MUCOUSPresentNormalThe [facility] SystemComment on above:Order Comment: A negative leukocyte esterase AND negative nitrite test or absence of pyuria (urine WBC count <= 5-10) make a UTI (urinary tract infection) very unlikely in a non-neutropenic adult (<=5% likelihood in many studies). A positive leukocyte esterase, nitrite and/or pyuria is a nonspecific result. This can be seen in conditions other than a UTI e.g. asymptomatic bacteriuria, gynecologic infections, sexually transmitted infections, and noninfectious conditions (positive predictive value for UTI around 50%)Performed By: #### C URINE ####[facility] Pkcpmhcxt[address] [place], [place] [id number]#### urinalysiswcul ####S PATHOLOGY WGHAKIFAYD336[address] [place] [address], [address]H NITRITENegativeNormalNegativeThe [facility] SystemComment on above: Order Comment: A negative leukocyte esterase AND negative nitrite test or absence of pyuria (urine WBC count <= 5-10) make a UTI (urinary tract infection) very unlikely in a non-neutropenic adult (<=5% likelihood in many studies). A positive leukocyte esterase, nitrite and/or pyuria is a nonspecific result. This can be seen in conditions other than a UTI e.g. asymptomatic bacteriuria, gynecologic infections, sexually transmitted infections, and noninfectious conditions (positive predictive value for UTI around 50%)Performed By: #### C URINE ####[facility] Kwychditr[address] [place], [place] [id number]#### urinalysiswcul ####[facility] PATHOLOGY DXOLPHGCNR9814[address] [place] [address], [address]V PH8.5High5.0-8.0The [facility] SystemComment on above:Order Comment: A negative leukocyte esterase AND negative nitrite test or absence of pyuria (urine WBC count <= 5-10) make a UTI (urinary tract infection) very unlikely in a non-neutropenic adult (<=5% likelihood in many studies). A positive leukocyte esterase, nitrite and/or pyuria is a nonspecific result. This can be seen in conditions other than a UTI e.g. asymptomatic bacteriuria, gynecologic infections, sexually transmitted infections, and noninfectious conditions (positive predictive value for UTI around 50%)Performed By: #### C URINE ####[facility] Nycgteidi45[address] [place], [place] [id number]#### urinalysiswcul ####S PATHOLOGY JZPYEZNJTH5335[address] [place] [address], [address]K CTT03-88Afjxnbtm8-1Htu [facility] SystemComment on above:Order Comment: A negative leukocyte esterase AND negative nitrite test or absence of pyuria (urine WBC count <= 5-10) make a UTI (urinary tract infection) very unlikely in a non-neutropenic adult (<=5% likelihood in many studies). A positive leukocyte esterase, nitrite and/or pyuria is a nonspecific result. This can be seen in conditions other than a UTI e.g. asymptomatic bacteriuria, gynecologic infections, sexually transmitted infections, and noninfectious conditions (positive predictive value for UTI around 50%)Performed By: #### C URINE ####[facility] Hrbikqdyb[address] [place], [place] [id number]#### urinalysiswcul ####S PATHOLOGY QXWCXTRWSO6167[address] [place] [address], SG1.028Normal<=1.030The [facility] SystemComment on above:Order Comment: A negative leukocyte esterase AND negative nitrite test or absence of pyuria (urine WBC count <= 5-10) make a UTI (urinary tract infection) very unlikely in a non-neutropenic adult (<=5% likelihood in many studies). A positive leukocyte esterase, nitrite and/or pyuria is a nonspecific result. This can be seen in conditions other than a UTI e.g. asymptomatic bacteriuria, gynecologic infections, sexually transmitted infections, and noninfectious conditions (positive predictive value for UTI around 50%)Performed By: #### C URINE ####[facility] Vatjdgtxl[address] [place], [place] [id number]#### urinalysiswcul ####S PATHOLOGY GJNVCMDVAH1240 [place], [place], UROBILINegativeNormalNegativeThe [facility] SystemComment on above: Order Comment: A negative leukocyte esterase AND negative nitrite test or absence of pyuria (urine WBC count <= 5-10) make a UTI (urinary tract infection) very unlikely in a non-neutropenic adult (<=5% likelihood in many studies). A positive leukocyte esterase, nitrite and/or pyuria is a nonspecific result. This can be seen in conditions other than a UTI e.g. asymptomatic bacteriuria, gynecologic infections, sexually transmitted infections, and noninfectious conditions (positive predictive value for UTI around 50%)Performed By: #### C URINE ####[facility] Llwqnucbj3098 [place], [place]#### urinalysiswcul ####[facility] PATHOLOGY AKZPDXAVPC[address] [place] [address], [address]R IGC54-22Jyxvxwvs2-7Isg [facility] SystemComment on above:Order Comment: A negative leukocyte esterase AND negative nitrite test or absence of pyuria (urine WBC count <= 5-10) make a UTI (urinary tract infection) very unlikely in a non-neutropenic adult (<=5% likelihood in many studies). A positive leukocyte esterase, nitrite and/or pyuria is a nonspecific result. This can be seen in conditions other than a UTI e.g. asymptomatic bacteriuria, gynecologic infections, sexually transmitted infections, and noninfectious conditions (positive predictive value for UTI around 50%)Performed By: #### C URINE ####[facility] Qhzbjhvrm[address] [place], [place] [id number]#### urinalysiswcul ####[facility] PATHOLOGY KVXQLWPXTQ4733[address] [place] [address], [address]SLCON CULTUREon 87-03-5178Ifatloyq identified Cx Nom (U)C URINE: Positive Culture Report ESCHERICHIA COLI >100,000 CFU/ml Escherichia coli PROVIDENCIA RETTGERI >100,000 CFU/ml Providencia rettgeriNormalBlanchard Valley Health System [facility] SystemComment on above:Order Comment: THIS IS A PRELIMINARY REPORT. Final results will follow. Results of the preliminary report may be modified as additional information becomes available.Performed By: #### C URINE ####[facility] Jllserlnj[address] [place], [place] [id number]#### urinalysiswcul ####[facility] PATHOLOGY ZWIIXNBWMC[address] [place] [address], [address]WFTQsjddrVltCleveland Clinic Union Hospital SystemComment on above:Order Comment: THIS IS A PRELIMINARY REPORT. Final results will follow. Results of the preliminary report may be modified as additional information becomes available.Performed By: #### C URINE ####[facility] Orntredwd9137 [place], [place]#### urinalysiswcul ####[facility] LKZDIWFCVB6551 [place], [address]PV CHEST AP OR PA 1 VIEWon 72-32-9568VS CHEST AP OR PA 1 VIEWNormalThe [facility] SystemAutomated epithelial cells count in urine sediment (number/area)on 07-21-4083Feruxozixm cells Auto (Urine sed) [#/Area]NONE SEEN #/LPFNONE/RARETwin City HospitalAutomated leukocytes count in urine sediment (number/area)on 05-20-0070ITN Auto (Urine sed) [#/Area]0-2 #/HPF 0-2FLancaster Municipal HospitalAutomated urine specific gravity by refractometryon 08-97-2937Tdwijiem gravity Refractometry automated (U) [Rel density]1.0101.005-1.025Twin City HospitalBasophils Auto (Bld) [#/Vol]on 54-82-3313Pxnfwatbj (Bld) [#/Vol]0.0 10 3/uL0.0-0.1FLancaster Municipal HospitalBasophils/100 WBC Auto (Bld)on 46-37-2882Tevukbwsl/100 WBC (Bld) 0.2 %0.2-2.0[facility] HospitalBilirubin Auto test strip (U) [Mass/Vol]on 12-95-0744Lioncizyf (U) [Mass/Vol]NegativeNEGATIVETwin City HospitalCast typing in urine sediment by light microscopyon 53-31-6179Bxtlm LM Nom (Urine sed)NONE SEEN #/LPFNONE [facility] - CincinnatiColor Auto (U)on 31-53-1887Xzpxl (U)LT. YELLOWYELLOWTwin City HospitalEosinophils/100 WBC Auto (Bld)on 06-24-2023 Eosinophils/100 WBC (Bld)0.0 %0.9-7.0[facility] Erythrocyte distribution width Auto (RBC) [Ratio]on 95-46-5737Ypoadcscnli distribution width (RBC) [Ratio]14.5 %11.0-15.0[facility] Estimated glomerular filtration rate (GFR) non- Americanon 06-24-2023 GFR/1.73 sq M.predicted among non-blacks MDRD (S/P/Bld) [Vol rate/Area] mL/min/{1.73_m2}>=60T[facility] City HospitalGlobulin Calc (S) [Mass/Vol]on 01-87-9365Xfgjiqhn (S) [Mass/Vol]3.8 g/dLTwin City HospitalHematocrit Auto (Bld) [Volume fraction]on 97-74-8746Nvggnqsich (Bld) [Volume fraction]41.0 %36.0-48.0[facility] HospitalHemoglobin [Mass/volume] in Bloodon 15-83-6889Kuwtajagnw (Bld) [Mass/Vol]13.3 g/dL12.0-16.0 [facility] HospitalKetones Auto test strip (U) [Mass/Vol]on 97-98-4066Jkarkns (U) [Mass/Vol]NegativeNEGATIVETwin City HospitalLaboratory - Chemistry and Chemistry - challengeon 71-17-9842Ntjqobu [Mass/Vol]3.9 g/dL3.4-5.0T[facility] HospitalALP [Catalytic activity/Vol]96 U/U82-449MlvkbnhgrTwin City HospitalALT [Catalytic activity/Vol]24 U/D41-25IkkisvxzbTwin City HospitalAST [Catalytic activity/Vol]18 U/Q74-82NghmoxpkpTwin City HospitalBilirubin [Mass/Vol]0.7 mg/dL0.2-1.0[facility] HospitalCalcium [Mass/Vol]9.3 mg/dL 8.5-10.1FLancaster Municipal HospitalChloride [Moles/Vol]104 mmol/L98-107 [facility] HospitalCO2 [Moles/Vol]24.2 mmol/L21.0-32.0[facility] HospitalCreatinine [Mass/Vol]0.94 mg/dL0.55-1.02T[facility] City HospitalGFR/1.73 sq M.predicted MDRD (S/P/Bld) [Vol rate/Area] mL/min/{1.73_m2}>=60T[facility] HospitalGlucose [Mass/Vol]208 mg/dL 74-106T[facility] City HospitalLactate [Moles/Vol]1.7 mmol/L0.4-2.0 [facility] HospitalLipase [Catalytic activity/Vol]12.0 U/L 16.0-77.0[facility] HospitalPotassium [Moles/Vol]3.8 mmol/L3.5-5.1 [facility] HospitalProtein [Mass/Vol]7.7 g/dL6.4-8.2FTriHealthodium [Moles/Vol]140 mmol/L000-765GibdnoukhTwin City HospitalUrea nitrogen [Mass/Vol]23.0 mg/dL7.0-18.0[facility] HospitalUrea nitrogen/Creatinine [Mass ratio]24.5 mg/mgTwin City HospitalLaboratory - Hematology and Cell countson 10-61-8810Swlblczj granulocytes/100 WBC (Bld)0.3 %0.0-0.5FLancaster Municipal Hospital Laboratory - Microbiology and Antimicrobial susceptibilityOrdered By: Kalli Simons on 56-21-2609Bywiosbq identified Cx Nom (U)T[facility] City HospitalLeukocytes [#/volume] corrected for nucleated erythrocytes in Blood by Automated counon 35-95-1192ABV corrected for nucl RBC Auto (Bld) [#/Vol]8.8 10 3/uL4.0-11.0T[facility] HospitalLymphocytes Auto (Bld) [#/Vol]on 31-27-1946Ohprvsfwhum (Bld) [#/Vol]0.3 10 3/uL1.2-3.8T[facility] City HospitalLymphocytes/100 WBC Auto (Bld)on 86-89-1736Eniuwunlmvw/100 WBC (Bld)3.6 % 20.5-60.0[facility] Auto (RBC) [Entitic mass]on 98-03-2631SNL (RBC) [Entitic mass]29.6 pg26.7-34.0[facility] Auto (RBC) [Mass/Vol]on 43-18-0971GPAL (RBC) [Mass/Vol]32.4 g/dL 29.9-35.2FLancaster Municipal HospitalMCV Auto (RBC) [Entitic vol]on 82-27-9961CXS (RBC) [Entitic vol]91.1 fL81.0-99.0[facility] HospitalMonocytes Auto (Bld) [#/Vol]on 80-98-6500Owbpgylnj (Bld) [#/Vol]0.2 10 3/uL0.3-0.8T[facility] HospitalMonocytes/100 WBC Auto (Bld)on 22-03-7508Igtfnjwqb/100 WBC (Bld)2.5 %1.7-12.0[facility] Mucus LM Ql (Urine sed)on 87-52-7985Copue Ql (Urine sed)NONE SEENNONE SEEN [facility] HospitalNeutrophils Auto (Bld) [#/Vol]on 06-24-2023 Neutrophils (Bld) [#/Vol]8.2 10 3/uL1.4-6.5FLancaster Municipal Hospital Neutrophils/100 WBC Auto (Bld)on 88-96-4928Enbctxdllga/100 WBC (Bld)93.4 % 43.0-75.0[facility] HospitalNo Panel Informationon 86-62-1960Jootk Culture ReflexedMercy Health Kings Mills HospitalUrine Microscopic ReviewMansfield HospitalEosinophils # (Auto)0.0 10 3/uL0.0-0.7FLancaster Municipal HospitalImmature Granulocyte # (Auto)0.03 10 3/uL0.00-0.03 [facility] HospitalTroponin I High Sensitivity9.9 pg/mL4.0-51.3 [facility] HospitalComment on above:CUT-OFF POINTS HAVE BEEN ESTABLISHED BASED ON THE FOURTHUNIVERSAL DEFINITION OF MYOCARDIAL INFARCTION. THE UPPERREFERENCE LIMIT (URL) OF TROPONIN, DEFINED THE 99THPERCENTILE OF cTnI DISTRIBUTION IN A REFERENCE POPULATION,HAS BEEN CONFIRMED THE DECISION THRESHOLD FOR MIDIAGNOSIS.99TH PERCENTILE = 51.4 PG/MLNOTE: HIGH-SENSITIVITY TROPONIN ASSAY IS NOT INTENDED TO BEUSED IN ISOLATION BUT SHOULD BE INTERPRETED IN CONJUNCTIONWITH OTHER DIAGNOSTIC AND CLINICAL INFORMATION.Platelet mean volume Auto (Bld) [Entitic vol]on 71-60-6811Iesesfml mean volume (Bld) [Entitic vol]9.7 fL9.5-13.5FLancaster Municipal HospitalPlatelets Auto (Bld) [#/Vol] on 78-38-4370Kdddqhpez (Bld) [#/Vol]265 10 3/sV635-259FpkqeaedqTwin City HospitalProtein Auto test strip (U) [Mass/Vol]on 68-97-0852Hccfnxf (U) [Mass/Vol] 100 mg/dLNEG/TRACETwin City HospitalRBC Auto (Bld) [#/Vol]on 90-82-7150TFE (Bld) [#/Vol]4.50 10 6/uL4.20-5.40Peoples Hospitalerum or plasma albumin/globulin mass ratioon 72-80-9613Ybirfsi/Globulin [Mass ratio]1.0 {ratio}Peoples Hospitalerum or plasma anion gap determinationon 01-85-2071Ysogh gap [Moles/Vol]15.6 mmol/LFTriHealthpecific gravity Auto test strip (U) [Rel density]on 06-24-2023 Specific gravity (U) [Rel density]CLEARCLEFirelands Regional Medical Center [facility] Urine bacteria detection by automated methodon 35-09-6204Sruddpuc Auto Ql (U) LARGE #/HPFNONE [facility] CincinnatiUrine glucose measurement by test strip (mass/volume)on 07-59-1744Qgdjxdd Test strip (U) [Mass/Vol] NegativeNEGSheltering Arms HospitalUrine hemoglobin detection by automated test stripon 60-31-8147Olbtqtetrm Auto test strip Ql (U)MODERATE NEGATIVETwin City HospitalUrine nitrite detection by automated test stripon 85-13-3883Swcagxf Auto test strip Ql (U)TRACENEGSheltering Arms HospitalNitrite Auto test strip Ql (U)NegativeNEGSheltering Arms HospitalUrine sediment crystal identification by light microscopy on 53-37-2058Isapdkrs LM Nom (Urine sed)None Seen #/HPFNone [facility] Ment[facility] HospitalUrine sediment leukocyte count by microscopy (number/high power field)on 68-92-7157AQJ LM.HPF (Urine sed) [#/Area]5-10 #/HPFNONE SEEN [facility] HospitalUrobilinogen Auto test strip (U) [Mass/Vol]on 30-42-1615Wbqqlzkyymjy Qn (U)0.2 {Ancelmo'U}/dL0.2-1.0T[facility] HospitalpH Auto test strip (U)on 50-13-6857eE (U)8.5 [pH]5.0-9.0T[facility] HospitalCT Chest W contrast [place] 75-95-9197SOSEGVWJDL: 1. Indeterminate borderline mediastinal and right hilar lymphadenopathy, new since 12/25/22. Consider interval follow-up and/or the workup. 2. Subcentimeter nodular opacities measuring up to 5 mm, stable. 3. Streaky scarring/discoid atelectasis in the left lower lobe, decreased. Transcribe Date/Time: Jun 18 2023 2:30P Dictated by: ALEKSANDR KRUEGER MD This examination was interpreted and the report reviewed and electronically signed by: ALEKSANDR KRUEGER MD on Jun 18 2023 3:17PM EST Thank you for allowing us to participate in the care of your patient. Should there be any questions regarding this interpretation, please call [phone]. If you are unable to reach us at the number above, please feel free to contact [facility] at [phone].DIVISION OF RADIOLOGY* * *Final Report* * * DATE OF EXAM: Jun 18 2023 10:25AM [facility] 0539 - CT CHEST W IVCON / PROCEDURE REASON: History of bladder cancer * * * * Physician Interpretation * * * * RESULT: EXAMINATION: CHEST CT WITH CONTRAST CLINICAL HISTORY: Bladder cancer follow-up Technique: Spiral CT acquisition of the chest from the thoracic inlet to the upper abdomen following IV contrast. MQ: CTCW_6 Contrast: 130 mL Omnipaque [address] Radiation dose: Integrated Dose-length product (DLP) for this visit = 2405 mGy*cm CT Dose Reduction Employed: mAs-kVp adjusted based on patient size-age Comparison: 12/25/22 RESULT: Limitations: None. Lines, tubes, and devices: 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 tubing is noted in the right anterior chest wall.. Lung parenchyma and airways: Subcentimeter nodular opacities measuring up to 5 mm, stable. For example: Right upper lobe (3: 58) Right middle lobe (3: 102, 105) Right lower lobe (3: 99, 136, 144) Left upper lobe (3: 46, 93) Left lower lobe (3: 118, 122) Streaky scarring/discoid atelectasis in the left lower lobe, decreased. No new airspace opacities. The central airways are patent. Pleural space: No pleural effusion. No pleural thickening. Lower neck, lymph nodes, and mediastinum: The imaged thyroid gland is normal. New borderline thoracic lymphadenopathy. For example (short axis measurement) 1.0 cm subcarinal (2:82) 1.0 cm right infrahilar (2:101) 0.9 cm left paraesophageal 2:110) Heart, pericardium, and thoracic vessels: The thoracic aorta and main pulmonary artery are normal in caliber. The cardiac chambers are normal in size. No coronary artery atherosclerotic calcifications are noted, although the study is not optimized for coronary assessment. No pericardial effusion or thickening. Bones and soft tissues: Healing fracture deformities of multiple bilateral anterior ribs are again noted. No new osseous abnormalities. Upper abdomen: Please refer to the abdomen CT scan report for the abdomen findings. Risk And Insurance Consultant (topogram) images: No additional findings. DIVISION OF RADIOLOGYProvider, [facility] [place] - 06/18/2023 * * *Final Report* * * DATE OF EXAM: Jun 18 2023 10:25AM [facility] 0539 - CT CHEST W IVCON / PROCEDURE REASON: History of bladder cancer * * * * Physician Interpretation * * * * RESULT: EXAMINATION: CHEST CT WITH CONTRAST CLINICAL HISTORY: Bladder cancer follow-up Technique: Spiral CT acquisition of the chest from the thoracic inlet to the upper abdomen following IV contrast. MQ: CTCW_6 Contrast: 130 mL Omnipaque [address] Radiation dose: Integrated Dose-length product (DLP) for this visit = 2405 mGy*cm CT Dose Reduction Employed: mAs-kVp adjusted based on patient size-age Comparison: 12/25/22 RESULT: Limitations: None. Lines, tubes, and devices: 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 tubing is noted in the right anterior chest wall.. Lung parenchyma and airways: Subcentimeter nodular opacities measuring up to 5 mm, stable. For example: Right upper lobe (3: 58) Right middle lobe (3: 102, 105) Right lower lobe (3: 99, 136, 144) Left upper lobe (3: 46, 93) Left lower lobe (3: 118, 122) Streaky scarring/discoid atelectasis in the left lower lobe, decreased. No new airspace opacities. The central airways are patent. Pleural space: No pleural effusion. No pleural thickening. Lower neck, lymph nodes, and mediastinum: The imaged thyroid gland is normal. New borderline thoracic lymphadenopathy. For example (short axis measurement) 1.0 cm subcarinal (2:82) 1.0 cm right infrahilar (2:101) 0.9 cm left paraesophageal 2:110) Heart, pericardium, and thoracic vessels: The thoracic aorta and main pulmonary artery are normal in caliber. The cardiac chambers are normal in size. No coronary artery atherosclerotic calcifications are noted, although the study is not optimized for coronary assessment. No pericardial effusion or thickening. Bones and soft tissues: Healing fracture deformities of multiple bilateral anterior ribs are again noted. No new osseous abnormalities. Upper abdomen: Please refer to the abdomen CT scan report for the abdomen findings. Risk And Insurance Consultant (topogram) images: No additional findings. IMPRESSION IMPRESSION: 1. Indeterminate borderline mediastinal and right hilar lymphadenopathy, new since 12/25/22. Consider interval follow-up and/or the workup. 2. Subcentimeter nodular opacities measuring up to 5 mm, stable. 3. Streaky scarring/discoid atelectasis in the left lower lobe, decreased. Transcribe Date/Time: Jun 18 2023 2:30P Dictated by: ALEKSANDR KRUEGER MD This examination was interpreted and the report reviewed and electronically signed by: ALEKSANDR KRUEGER MD on Jun 18 2023 3:17PM EST Thank you for allowing us to participate in the care of your patient. Should there be any questions regarding this interpretation, please call [phone]. If you are unable to reach us at the number above, please feel free to contact [facility] at [phone]. [facility] SystemCT Kidney WO and W contrast [place] [id number]: 1. No evidence of new intra-abdominal/pelvic abnormalities since 12/25/22. 2. Trace pelvic ascites, decreased. 3. Interval resolution of the previously noted wall enhancement of the ileal diversion. Consider interval follow-up or direct visualization. 4. Punctate nonobstructing left renal stones. Transcribe Date/Time: Jun 18 2023 2:43P Dictated by: ALEKSANDR KRUEGER MD This examination was interpreted and the report reviewed and electronically signed by: ALEKSANDR KRUEGER MD on Jun 18 2023 3:17PM EST Thank you for allowing us to participate in the care of your patient. Should there be any questions regarding this interpretation, please call [phone]. If you are unable to reach us at the number above, please feel free to contact [facility] at [phone].DIVISION OF RADIOLOGY* * *Final Report* * * DATE OF EXAM: Jun 18 2023 10:25AM [facility] 0560 - CT UROGRAM WO/W IVCON / PROCEDURE REASON: History of bladder cancer * * * * Physician Interpretation * * * * RESULT: EXAMINATION: CT ABDOMEN AND PELVIS WITHOUT AND WITH IV CONTRAST, INCLUDING EXCRETORY PHASE IMAGING (CT UROGRAM) 3D RECONSTRUCTIONS CLINICAL HISTORY: Bladder cancer. TECHNIQUE: CT urogram protocol including unenhanced, renal parenchymal phase and excretory phase renal imaging was obtained following IV contrast. Normal saline was also administered IV. No oral contrast was given. 3D image post-processing was performed and archived at the request of the referring physician, on the CT scanner workstation without concurrent physician supervision. MQ: CTU_2 Contrast: IV: 130 ml of Omnipaque 300 IV Saline: ml of Oral Contrast: None CT Radiation dose: Integrated dose-length product (DLP) for this visit = 2405 mGy*cm. CT Dose Reduction Employed: mAs-kVp adjusted based on patient size-age COMPARISON: 12/25/22 RESULT: Kidneys and urinary tract: Right: There are no renal calculi or masses. The opacified calices, renal pelvis and ureter are normal without dilation, filling defect, or stricture. Left: 1 mm nonobstructing stones. Subcentimeter cyst. The opacified calices, renal pelvis and ureter are normal without dilation, filling defect, or stricture. Bladder: Status post cystectomy. 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 Interval resolution of previously noted wall enhancement of the ileal diversion. Abdomen and Pelvis: Liver: No mass. Biliary: No bile duct dilation. Gallbladder is unremarkable. Spleen: No mass. No splenomegaly. Pancreas: No mass or duct dilation. Adrenals: No mass. GI tract: No dilation or wall thickening. Lymph nodes: No abdominal or pelvic lymphadenopathy. Mesentery/Peritoneum: Trace pelvic ascites, decreased. The tip of the 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 shunt is adjacent to the sacrum. Retroperitoneum: No mass. Vasculature: - Abdominal aorta and iliac arteries: Atherosclerotic calcifications without aneurysm. - Celiac and SMA: Patent without stenosis. - Portal venous system (SMV, splenic vein, portal vein and branches): Patent. - Hepatic veins: Patent. Pelvis: No mass, ascites or fluid collection. Bones and Soft Tissues: Sclerotic focus in the right ilium, stable. No new osseous abnormalities. Lower thorax: A chest CT performed will be reported separately. Risk And Insurance Consultant (topogram) images: No additional findings. DIVISION OF RADIOLOGYProvider, [facility] [place] - 06/18/2023 * * *Final Report* * * DATE OF EXAM: Jun 18 2023 10:25AM [facility] 0560 - CT UROGRAM WO/W IVCON / PROCEDURE REASON: History of bladder cancer * * * * Physician Interpretation * * * * RESULT: EXAMINATION: CT ABDOMEN AND PELVIS WITHOUT AND WITH IV CONTRAST, INCLUDING EXCRETORY PHASE IMAGING (CT UROGRAM) 3D RECONSTRUCTIONS CLINICAL HISTORY: Bladder cancer. TECHNIQUE: CT urogram protocol including unenhanced, renal parenchymal phase and excretory phase renal imaging was obtained following IV contrast. Normal saline was also administered IV. No oral contrast was given. 3D image post-processing was performed and archived at the request of the referring physician, on the CT scanner workstation without concurrent physician supervision. MQ: CTU_2 Contrast: IV: 130 ml of Omnipaque 300 IV Saline: ml of Oral Contrast: None CT Radiation dose: Integrated dose-length product (DLP) for this visit = 2405 mGy*cm. CT Dose Reduction Employed: mAs-kVp adjusted based on patient size-age COMPARISON: 12/25/22 RESULT: Kidneys and urinary tract: Right: There are no renal calculi or masses. The opacified calices, renal pelvis and ureter are normal without dilation, filling defect, or stricture. Left: 1 mm nonobstructing stones. Subcentimeter cyst. The opacified calices, renal pelvis and ureter are normal without dilation, filling defect, or stricture. Bladder: Status post cystectomy. 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 Interval resolution of previously noted wall enhancement of the ileal diversion. Abdomen and Pelvis: Liver: No mass. Biliary: No bile duct dilation. Gallbladder is unremarkable. Spleen: No mass. No splenomegaly. Pancreas: No mass or duct dilation. Adrenals: No mass. GI tract: No dilation or wall thickening. Lymph nodes: No abdominal or pelvic lymphadenopathy. Mesentery/Peritoneum: Trace pelvic ascites, decreased. The tip of the 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 shunt is adjacent to the sacrum. Retroperitoneum: No mass. Vasculature: - Abdominal aorta and iliac arteries: Atherosclerotic calcifications without aneurysm. - Celiac and SMA: Patent without stenosis. - Portal venous system (SMV, splenic vein, portal vein and branches): Patent. - Hepatic veins: Patent. Pelvis: No mass, ascites or fluid collection. Bones and Soft Tissues: Sclerotic focus in the right ilium, stable. No new osseous abnormalities. Lower thorax: A chest CT performed will be reported separately. Risk And Insurance Consultant (topogram) images: No additional findings. IMPRESSION IMPRESSION: 1. No evidence of new intra-abdominal/pelvic abnormalities since 12/25/22. 2. Trace pelvic ascites, decreased. 3. Interval resolution of the previously noted wall enhancement of the ileal diversion. Consider interval follow-up or direct visualization. 4. Punctate nonobstructing left renal stones. Transcribe Date/Time: Jun 18 2023 2:43P Dictated by: ALEKSANDR KRUEGER MD This examination was interpreted and the report reviewed and electronically signed by: ALEKSANDR KRUEGER MD on Jun 18 2023 3:17PM EST Thank you for allowing us to participate in the care of your patient. Should there be any questions regarding this interpretation, please call [phone]. If you are unable to reach us at the number above, please feel free to contact [facility] at [phone]. [facility] Panel InformationOrdered By: Ccf Provider on 06-18-2023 [facility] Panel Informationon [id number] Study observation (narrative)[facility] SystemXR Knee - left AP and Lateralon [id number]: 1. Nondisplaced fracture of the patella with adjacent soft tissue swelling Transcribe Date/Time: Jun 18 2023 12:20P Dictated by: RAUL FRANK MD This examination was interpreted and the report reviewed and electronically signed by: RAUL FRANK MD on Jun 18 2023 12:20PM EST Thank you for allowing us to participate in the care of your patient. Should there be any questions regarding this interpretation, please call [phone]. If you are unable to reach us at the number above, please feel free to contact [facility] at [phone].DIVISION OF RADIOLOGY* * *Final Report* * * DATE OF EXAM: Jun 18 2023 10:45AM [facility] 5206 - XR KNEE 2V AP/LAT LT / PROCEDURE REASON: Closed nondisplaced transverse fracture of left patella, initial encounter * * * * Physician Interpretation * * * * RESULT: KNEE RADIOGRAPHS - LEFT HISTORY: Closed nondisplaced transverse fracture of left patella, initial encounter TECHNOLOGIST PROVIDED HISTORY (if applicable): Post fx of patella TECHNIQUE: XR KNEE 2V AP/LAT LT COMPARISON: None available RESULT: Left knee: Nondisplaced transverse fracture of the patella with mild prepatellar soft tissue swelling. No additional fracture identified with generalized osteopenia, mild tricompartmental joint space narrowing with small marginal osteophytes, and trace joint fluid present DIVISION OF RADIOLOGYProvider, [facility] [place] - 06/18/2023 * * *Final Report* * * DATE OF EXAM: Jun 18 2023 10:45AM [facility]206 - XR KNEE 2V AP/LAT LT / PROCEDURE REASON: Closed nondisplaced transverse fracture of left patella, initial encounter * * * * Physician Interpretation * * * * RESULT: KNEE RADIOGRAPHS - LEFT HISTORY: Closed nondisplaced transverse fracture of left patella, initial encounter TECHNOLOGIST PROVIDED HISTORY (if applicable): Post fx of patella TECHNIQUE: XR KNEE 2V AP/LAT LT COMPARISON: None available RESULT: Left knee: Nondisplaced transverse fracture of the patella with mild prepatellar soft tissue swelling. No additional fracture identified with generalized osteopenia, mild tricompartmental joint space narrowing with small marginal osteophytes, and trace joint fluid present IMPRESSION IMPRESSION: 1. Nondisplaced fracture of the patella with adjacent soft tissue swelling Transcribe Date/Time: Jun 18 2023 12:20P Dictated by: RAUL FRANK MD This examination was interpreted and the report reviewed and electronically signed by: RAUL FRANK MD on Jun 18 2023 12:20PM EST Thank you for allowing us to participate in the care of your patient. Should there be any questions regarding this interpretation, please call [phone]. If you are unable to reach us at the number above, please feel free to contact [facility] at [phone]. [facility] SystemXR Knee - left AP and LateralOrdered By: Ccf Provider on [id number] ClinicPOSACONAZOLE, SERUMon [id number] [Mass/Vol]2.7 ug/mL0.7 - 3.9 ug/mLCleveland Canby Medical CenterC-REACTIVE PROTEIN (CRP)on [id number] [Mass/Vol]1.7 mg/dLHigh<0.9 mg/dLThe Metrohealth SystemCBC W Auto Differential panel (Bld)on [id number] (Bld) [#/Vol]0.04 10*3/uL<0.11 k/uLThe Metrohealth SystemBasophils/100 WBC (Bld)0.6 %[facility] SystemDifferential cell count method Nom (Bld)AutoCleveland ClinicEosinophils (Bld) [#/Vol]0.08 10*3/uL<0.46 k/uLThe Metrohealth SystemEosinophils/100 WBC (Bld)1.2 %[facility] Erythrocyte distribution width (RBC) [Ratio]14.5 %11.5 - 15.0 %[facility] Hematocrit (Bld) [Volume fraction]38.2 %36.0 - 46.0 %[facility] SystemHemoglobin (Bld) [Mass/Vol]12.1 g/dL11.5 - 15.5 g/dLThe Metrohealth SystemImmature granulocytes (Bld) [#/Vol]<0.10 k/uLThe Metrohealth SystemImmature granulocytes/100 WBC (Bld)0.2 % [facility] SystemLymphocytes (Bld) [#/Vol]1.25 10*3/uL1.00 - 4.00 k/uLThe Metrohealth SystemLymphocytes/100 WBC (Bld)19.4 %[facility] HospitalH (RBC) [Entitic mass] 29.4 pg26.0 - 34.0 pgClevelSteven Community Medical CenterHC (RBC) [Mass/Vol]31.7 g/dL30.5 - 36.0 g/dLProMedica Flower HospitalV (RBC) [Entitic vol]92.9 fL80.0 - 100.0 fLCleveland ClinicMonocytes (Bld) [#/Vol]0.83 10*3/uL<0.87 k/uLThe Metrohealth SystemMonocytes/100 WBC (Bld)12.9 %[facility] SystemNeutrophils (Bld) [#/Vol]4.24 10*3/uL1.45 - 7.50 k/uLThe Metrohealth SystemNeutrophils/100 WBC (Bld)65.7 %[facility] SystemNucleated RBC (Bld) [#/Vol]<0.01 k/uLThe Metrohealth SystemNucleated RBC/100 WBC (Bld) [Ratio] 0.0 /100 WBCWhite Hall ClinicPlatelet mean volume (Bld) [Entitic vol]9.9 fL9.0 - 12.7 fLClevelformerly albemarle hospital ClinicPlatelets (Bld) [#/Vol]318 10*3/uL150 - 400 k/uLThe Metrohealth SystemRBC (Bld) [#/Vol]4.11 10*6/uL3.90 - 5.20 m/uLThe Metrohealth SystemWBC (Bld) [#/Vol]6.45 10*3/uL3.70 - 11.00 k/uLThe [facility] SystemComprehensive metabolic 2000 panelon 60-22-6866Fnwushi [Mass/Vol]4.3 g/dL3.9 - 4.9 g/dLWhite Hall ClinicALP [Catalytic activity/Vol]105 U/L34 - 123 U/LCleveland ClinicALT [Catalytic activity/Vol]20 U/L7 - 38 U/LCleveland ClinicAnion gap [Moles/Vol]11 mmol/L9 - 18 mmol/LCleveland ClinicAST [Catalytic activity/Vol]21 U/L13 - 35 U/LCleveland Canby Medical CenterBilirubin [Mass/Vol]0.4 mg/dL0.2 - 1.3 mg/dLThe [facility]health SystemCalcium [Mass/Vol]10.0 mg/dL8.5 - 10.2 mg/dLThe [facility]health SystemChloride [Moles/Vol]104 mmol/L97 - 105 mmol/LCleveland ClinicCO2 [Moles/Vol]28 mmol/L22 - 30 mmol/L [facility] SystemCreatinine [Mass/Vol]0.67 mg/dL0.58 - 0.96 mg/dLThe [facility] Estimated Glomerular Filtration Zdjv995 mL/min/1.73m>=60 mL/min/1.73mCleveland Canby Medical CenterGlucose [Mass/Vol]137 mg/mMUyed31 - 99 mg/dLThe [facility]health SystemPotassium [Moles/Vol]4.2 mmol/L3.7 - 5.1 mmol/LCleveland ClinicProtein [Mass/Vol]7.0 g/dL 6.3 - 8.0 g/dLBarnesville Hospitalodium [Moles/Vol]143 mmol/L136 - 144 mmol/L [facility] SystemUrea nitrogen [Mass/Vol]24 mg/dLHigh7 - 21 mg/dLThe [facility] System MR Brain WO and W contrast [place] 05-09-2023* * *Final Report* * * DATE OF EXAM: May 09 2023 3:10PM LN 0295 - MRI BRAIN WO/W IVCON / PROCEDURE REASON: Cervicalgia * * * * Physician Interpretation * * * * EXAMINATION: MRI BRAIN WO/W IVCON, MRI CERVICAL SPINE WO/W IVCON, MRI THORACIC SPINE WO/W IVCON, MRI L-SPINE PREOP LOCAL W IVCON CLINICAL HISTORY: Fungal meningitis, urothelial carcinoma with micropapillary differentiation?s/p radical cystectomy?and ileal conduit?(04/2021, never received BCG), HTN, DM1,?chronic sinusitis, and asthma?with recent admission for?new hydrocephalus and?enhancement?of the anterior sabra, medulla, and spine from C7-T3 and L1-S2. TECHNIQUE: Routine brain MRI protocol without and with contrast including diffusion images. MQ: MRBWOW_2 Routine cervical, thoracic, and lumbosacral spine MR protocol without and with intravenous gadolinium. MQ: MRCTLWO_3 Contrast: 12 mL Dotarem IV COMPARISON: CT brain 11/15/2022, MRI brain and complete spine 07/07/2022 RESULT: MR BRAIN: Postoperative findings of a right frontal approach ventriculostomy shunt catheter with tip terminating in the right frontal horn of the lateral ventricle near the foramen of Krause. Artifact from the ventriculostomy shunt partially obscures the right cerebral hemisphere on the susceptibility in the diffusion weighted images. Acute Change: There is no evidence of restricted diffusion to suggest acute infarct within constraints of artifact. Hemorrhage: Again noted is linear susceptibility along the right cerebellar folia compatible with chronic subarachnoid blood products in unchanged from the prior MRI. There is trace susceptibility in the bilateral occipital horns and lateral atrium, suggesting small amount of chronic intraventricular blood products. Focal susceptibility artifact in the right frontal lobe is unchanged and could reflect a remote microhemorrhage. No new findings of prior intracranial hemorrhage on the susceptibility weighted images within constraints of artifact. Mass Lesion/ Mass Effect: Compared to the prior MRI from 07/06/2022, there has been interval improvement in abnormal enhancement along the prepontine cistern with decreased size of the peripherally enhancing collection, which now measures 0.3 x 1.6 cm, previously 0.6 x 2.2 cm (series 18, image 64). Interval decreased pachymeningeal enhancement extending along the left cerebellar tentorial leaflet and ventral margins of the prepontine and cerebellopontine angle cisterns compared to the prior exam with decreased thickness. There is contiguous extension to the posterior margin of the sella with enhancing soft tissue abutting the inferior margin of the hypothalamus and posterior margin of the optic chiasm. This appears similar to slightly improved compared to the prior exam. Pachymeningeal enhancement extends to the margins of bilateral Meckel's caves but without clear extension into the Meckel's caves. There complete resolution of previously seen leptomeningeal enhancement along the left ventral sabra, pontomedullary junction, and medulla compared to the prior MRI with improved associated FLAIR signal abnormality. Apparent FLAIR signal within the right frontal sulci underlying the ventriculostomy shunt is likely artifactual. No new or progressive pathologic parenchymal or leptomeningeal enhancement elsewhere in the brain. No significant mass effect. Chronic Change: Scattered patchy confluent areas of T2 and FLAIR hyperintensity in the supratentorial white matter, for example in the right frontoparietal centrum semiovale and left periatrial white matter, nonspecific but could reflect chronic microvascular ischemic change. There is FLAIR hyperintensity along the right frontal approach ventriculostomy shunt catheter tract, likely reflecting gliosis. Parenchyma: No significant volume loss for age. The brain parenchyma is otherwise within normal limits of signal intensity and morphology. 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 Periventricular interstitial edema has resolved since the prior exam. The ventricles are now normal in caliber and configuration. Skull Base: Hypothalamic and pituitary region are grossly normal. Craniocervical junction is normal. No significant marrow replacement process. Vasculature: Major intracranial arterial structures, and dural venous sinuses show typical flow void, suggesting patency by spin echo criteria. Other: The visualized paranasal sinuses and mastoid air cells are clear. The orbits and extracranial soft tissues are unremarkable. CERVICAL: The images are degraded by motion artifact. Postcontrast sagittal images were not obtained. 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 TECHNIQUE: Routine brain MRI protocol without and with contrast including diffusion images. MQ: MRBWOW_2 Routine cervical, thoracic, and lumbosacral spine MR protocol without and with intravenous gadolinium. MQ: MRCTLWO_3 Contrast: 12 mL Dotarem IV COMPARISON: CT brain 11/15/2022, MRI brain and complete spine 07/07/2022 RESULT: MR BRAIN: Postoperative findings of a right frontal approach ventriculostomy shunt catheter with tip terminating in the right frontal horn of the lateral ventricle near the foramen of Krause. Artifact from the ventriculostomy shunt partially obscures the right cerebral hemisphere on the susceptibility in the diffusion weighted images. Acute Change: There is no evidence of restricted diffusion to suggest acute infarct within constraints of artifact. Hemorrhage: Again noted is linear susceptibility along the right cerebellar folia compatible with chronic subarachnoid blood products in unchanged from the prior MRI. There is trace susceptibility in the bilateral occipital horns and lateral atrium, suggesting small amount of chronic intraventricular blood products. Focal susceptibility artifact in the right frontal lobe is unchanged and could reflect a remote microhemorrhage. No new findings of prior intracranial hemorrhage on the susceptibility weighted images within constraints of artifact. Mass Lesion/ Mass Effect: Compared to the prior MRI from 07/06/2022, there has been interval improvement in abnormal enhancement along the prepontine cistern with decreased size of the peripherally enhancing collection, which now measures 0.3 x 1.6 cm, previously 0.6 x 2.2 cm (series 18, image 64). Interval decreased pachymeningeal enhancement extending along the left cerebellar tentorial leaflet and ventral margins of the prepontine and cerebellopontine angle cisterns compared to the prior exam with decreased thickness. There is contiguous extension to the posterior margin of the sella with enhancing soft tissue abutting the inferior margin of the hypothalamus and posterior margin of the optic chiasm. This appears similar to slightly improved compared to the prior exam. Pachymeningeal enhancement extends to the margins of bilateral Meckel's caves but without clear extension into the Meckel's caves. There complete resolution of previously seen leptomeningeal enhancement along the left ventral sabra, pontomedullary junction, and medulla compared to the prior MRI with improved associated FLAIR signal abnormality. Apparent FLAIR signal within the right frontal sulci underlying the ventriculostomy shunt is likely artifactual. No new or progressive pathologic parenchymal or leptomeningeal enhancement elsewhere in the brain. No significant mass effect. Chronic Change: Scattered patchy confluent areas of T2 and FLAIR hyperintensity in the supratentorial white matter, for example in the right frontoparietal centrum semiovale and left periatrial white matter, nonspecific but could reflect chronic microvascular ischemic change. There is FLAIR hyperintensity along the right frontal approach ventriculostomy shunt catheter tract, likely reflecting gliosis. Parenchyma: No significant volume loss for age. The brain parenchyma is otherwise within normal limits of signal intensity and morphology. 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 Periventricular interstitial edema has resolved since the prior exam. The ventricles are now normal in caliber and configuration. Skull Base: Hypothalamic and pituitary region are grossly normal. Craniocervical junction is normal. No significant marrow replacement process. Vasculature: Major intracranial arterial structures, and dural venous sinuses show typical flow void, suggesting patency by spin echo criteria. Other: The visualized paranasal sinuses and mastoid air cells are clear. The orbits and extracranial soft tissues are unremarkable. CERVICAL: The images are degraded by motion artifact. Postcontrast sagittal images were not obtained. 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 TECHNIQUE: Routine brain MRI protocol without and with contrast including diffusion images. MQ: MRBWOW_2 Routine cervical, thoracic, and lumbosacral spine MR protocol without and with intravenous gadolinium. MQ: MRCTLWO_3 Contrast: 12 mL Dotarem IV COMPARISON: CT brain 11/15/2022, MRI brain and complete spine 07/07/2022 RESULT: MR BRAIN: Postoperative findings of a right frontal approach ventriculostomy shunt catheter with tip terminating in the right frontal horn of the lateral ventricle near the foramen of Krause. Artifact from the ventriculostomy shunt partially obscures the right cerebral hemisphere on the susceptibility in the diffusion weighted images. Acute Change: There is no evidence of restricted diffusion to suggest acute infarct within constraints of artifact. Hemorrhage: Again noted is linear susceptibility along the right cerebellar folia compatible with chronic subarachnoid blood products in unchanged from the prior MRI. There is trace susceptibility in the bilateral occipital horns and lateral atrium, suggesting small amount of chronic intraventricular blood products. Focal susceptibility artifact in the right frontal lobe is unchanged and could reflect a remote microhemorrhage. No new findings of prior intracranial hemorrhage on the susceptibility weighted images within constraints of artifact. Mass Lesion/ Mass Effect: Compared to the prior MRI from 07/06/2022, there has been interval improvement in abnormal enhancement along the prepontine cistern with decreased size of the peripherally enhancing collection, which now measures 0.3 x 1.6 cm, previously 0.6 x 2.2 cm (series 18, image 64). Interval decreased pachymeningeal enhancement extending along the left cerebellar tentorial leaflet and ventral margins of the prepontine and cerebellopontine angle cisterns compared to the prior exam with decreased thickness. There is contiguous extension to the posterior margin of the sella with enhancing soft tissue abutting the inferior margin of the hypothalamus and posterior margin of the optic chiasm. This appears similar to slightly improved compared to the prior exam. Pachymeningeal enhancement extends to the margins of bilateral Meckel's caves but without clear extension into the Meckel's caves. There complete resolution of previously seen leptomeningeal enhancement along the left ventral sabra, pontomedullary junction, and medulla compared to the prior MRI with improved associated FLAIR signal abnormality. Apparent FLAIR signal within the right frontal sulci underlying the ventriculostomy shunt is likely artifactual. No new or progressive pathologic parenchymal or leptomeningeal enhancement elsewhere in the brain. No significant mass effect. Chronic Change: Scattered patchy confluent areas of T2 and FLAIR hyperintensity in the supratentorial white matter, for example in the right frontoparietal centrum semiovale and left periatrial white matter, nonspecific but could reflect chronic microvascular ischemic change. There is FLAIR hyperintensity along the right frontal approach ventriculostomy shunt catheter tract, likely reflecting gliosis. Parenchyma: No significant volume loss for age. The brain parenchyma is otherwise within normal limits of signal intensity and morphology. 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 Periventricular interstitial edema has resolved since the prior exam. The ventricles are now normal in caliber and configuration. Skull Base: Hypothalamic and pituitary region are grossly normal. Craniocervical junction is normal. No significant marrow replacement process. Vasculature: Major intracranial arterial structures, and dural venous sinuses show typical flow void, suggesting patency by spin echo criteria. Other: The visualized paranasal sinuses and mastoid air cells are clear. The orbits and extracranial soft tissues are unremarkable. CERVICAL: The images are degraded by motion artifact. Postcontrast sagittal images were not obtained. Counting reference: Craniocervic (more content not included)...DIVISION OF RAD[facility]Provider, [facility] [place] - 05/09/2023 * * *Final Report* * * DATE OF EXAM: May 09 2023 3:44PM LN 0298 - MRI CERVICAL SPINE WO/W IVCON / PROCEDURE REASON: Cervicalgia * * * * Physician Interpretation * * * * EXAMINATION: MRI BRAIN WO/W IVCON, MRI CERVICAL SPINE WO/W IVCON, MRI THORACIC SPINE WO/W IVCON, MRI L-SPINE PREOP LOCAL W IVCON CLINICAL HISTORY: Fungal meningitis, urothelial carcinoma with micropapillary differentiation?s/p radical cystectomy?and ileal conduit?(04/2021, never received BCG), HTN, DM1,?chronic sinusitis, and asthma?with recent admission for?new hydrocephalus and?enhancement?of the anterior sabra, medulla, and spine from C7-T3 and L1-S2. TECHNIQUE: Routine brain MRI protocol without and with contrast including diffusion images. MQ: MRBWOW_2 Routine cervical, thoracic, and lumbosacral spine MR protocol without and with intravenous gadolinium. MQ: MRCTLWO_3 Contrast: 12 mL Dotarem IV COMPARISON: CT brain 11/15/2022, MRI brain and complete spine 07/07/2022 RESULT: MR BRAIN: Postoperative findings of a right frontal approach ventriculostomy shunt catheter with tip terminating in the right frontal horn of the lateral ventricle near the foramen of Krause. Artifact from the ventriculostomy shunt partially obscures the right cerebral hemisphere on the susceptibility in the diffusion weighted images. Acute Change: There is no evidence of restricted diffusion to suggest acute infarct within constraints of artifact. Hemorrhage: Again noted is linear susceptibility along the right cerebellar folia compatible with chronic subarachnoid blood products in unchanged from the prior MRI. There is trace susceptibility in the bilateral occipital horns and lateral atrium, suggesting small amount of chronic intraventricular blood products. Focal susceptibility artifact in the right frontal lobe is unchanged and could reflect a remote microhemorrhage. No new findings of prior intracranial hemorrhage on the susceptibility weighted images within constraints of artifact. Mass Lesion/ Mass Effect: Compared to the prior MRI from 07/06/2022, there has been interval improvement in abnormal enhancement along the prepontine cistern with decreased size of the peripherally enhancing collection, which now measures 0.3 x 1.6 cm, previously 0.6 x 2.2 cm (series 18, image 64). Interval decreased pachymeningeal enhancement extending along the left cerebellar tentorial leaflet and ventral margins of the prepontine and cerebellopontine angle cisterns compared to the prior exam with decreased thickness. There is contiguous extension to the posterior margin of the sella with enhancing soft tissue abutting the inferior margin of the hypothalamus and posterior margin of the optic chiasm. This appears similar to slightly improved compared to the prior exam. Pachymeningeal enhancement extends to the margins of bilateral Meckel's caves but without clear extension into the Meckel's caves. There complete resolution of previously seen leptomeningeal enhancement along the left ventral sabra, pontomedullary junction, and medulla compared to the prior MRI with improved associated FLAIR signal abnormality. Apparent FLAIR signal within the right frontal sulci underlying the ventriculostomy shunt is likely artifactual. No new or progressive pathologic parenchymal or leptomeningeal enhancement elsewhere in the brain. No significant mass effect. Chronic Change: Scattered patchy confluent areas of T2 and FLAIR hyperintensity in the supratentorial white matter, for example in the right frontoparietal centrum semiovale and left periatrial white matter, nonspecific but could reflect chronic microvascular ischemic change. There is FLAIR hyperintensity along the right frontal approach ventriculostomy shunt catheter tract, likely reflecting gliosis. Parenchyma: No significant volume loss for age. The brain parenchyma is otherwise within normal limits of signal intensity and morphology. 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 Periventricular interstitial edema has resolved since the prior exam. The ventricles are now normal in caliber and configuration. Skull Base: Hypothalamic and pituitary region are grossly normal. Craniocervical junction is normal. No significant marrow replacement process. Vasculature: Major intracranial arterial structures, and dural venous sinuses show typical flow void, suggesting patency by spin echo criteria. Other: The visualized paranasal sinuses and mastoid air cells are clear. The orbits and extracranial soft tissues are unremarkable. CERVICAL: The images are degraded by motion artifact. Postcontrast sagittal images were not obtained. Counti (more content not included)...[facility] Lumbar spine W contrast [place] 05-09-2023* * *Final Report* * * DATE OF EXAM: May 09 2023 3:42PM LN 0134 - MRI L-SPINE PREOP LOCAL W IVCON / PROCEDURE REASON: Cervicalgia * * * * Physician Interpretation * * * * EXAMINATION: MRI BRAIN WO/W IVCON, MRI CERVICAL SPINE WO/W IVCON, MRI THORACIC SPINE WO/W IVCON, MRI L-SPINE PREOP LOCAL W IVCON CLINICAL HISTORY: Fungal meningitis, urothelial carcinoma with micropapillary differentiation?s/p radical cystectomy?and ileal conduit?(04/2021, never received BCG), HTN, DM1,?chronic sinusitis, and asthma?with recent admission for?new hydrocephalus and?enhancement?of the anterior sabra, medulla, and spine from C7-T3 and L1-S2. TECHNIQUE: Routine brain MRI protocol without and with contrast including diffusion images. MQ: MRBWOW_2 Routine cervical, thoracic, and lumbosacral spine MR protocol without and with intravenous gadolinium. MQ: MRCTLWO_3 Contrast: 12 mL Dotarem IV COMPARISON: CT brain 11/15/2022, MRI brain and complete spine 07/07/2022 RESULT: MR BRAIN: Postoperative findings of a right frontal approach ventriculostomy shunt catheter with tip terminating in the right frontal horn of the lateral ventricle near the foramen of Krause. Artifact from the ventriculostomy shunt partially obscures the right cerebral hemisphere on the susceptibility in the diffusion weighted images. Acute Change: There is no evidence of restricted diffusion to suggest acute infarct within constraints of artifact. Hemorrhage: Again noted is linear susceptibility along the right cerebellar folia compatible with chronic subarachnoid blood products in unchanged from the prior MRI. There is trace susceptibility in the bilateral occipital horns and lateral atrium, suggesting small amount of chronic intraventricular blood products. Focal susceptibility artifact in the right frontal lobe is unchanged and could reflect a remote microhemorrhage. No new findings of prior intracranial hemorrhage on the susceptibility weighted images within constraints of artifact. Mass Lesion/ Mass Effect: Compared to the prior MRI from 07/06/2022, there has been interval improvement in abnormal enhancement along the prepontine cistern with decreased size of the peripherally enhancing collection, which now measures 0.3 x 1.6 cm, previously 0.6 x 2.2 cm (series 18, image 64). Interval decreased pachymeningeal enhancement extending along the left cerebellar tentorial leaflet and ventral margins of the prepontine and cerebellopontine angle cisterns compared to the prior exam with decreased thickness. There is contiguous extension to the posterior margin of the sella with enhancing soft tissue abutting the inferior margin of the hypothalamus and posterior margin of the optic chiasm. This appears similar to slightly improved compared to the prior exam. Pachymeningeal enhancement extends to the margins of bilateral Meckel's caves but without clear extension into the Meckel's caves. There complete resolution of previously seen leptomeningeal enhancement along the left ventral sabra, pontomedullary junction, and medulla compared to the prior MRI with improved associated FLAIR signal abnormality. Apparent FLAIR signal within the right frontal sulci underlying the ventriculostomy shunt is likely artifactual. No new or progressive pathologic parenchymal or leptomeningeal enhancement elsewhere in the brain. No significant mass effect. Chronic Change: Scattered patchy confluent areas of T2 and FLAIR hyperintensity in the supratentorial white matter, for example in the right frontoparietal centrum semiovale and left periatrial white matter, nonspecific but could reflect chronic microvascular ischemic change. There is FLAIR hyperintensity along the right frontal approach ventriculostomy shunt catheter tract, likely reflecting gliosis. Parenchyma: No significant volume loss for age. The brain parenchyma is otherwise within normal limits of signal intensity and morphology. 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 Periventricular interstitial edema has resolved since the prior exam. The ventricles are now normal in caliber and configuration. Skull Base: Hypothalamic and pituitary region are grossly normal. Craniocervical junction is normal. No significant marrow replacement process. Vasculature: Major intracranial arterial structures, and dural venous sinuses show typical flow void, suggesting patency by spin echo criteria. Other: The visualized paranasal sinuses and mastoid air cells are clear. The orbits and extracranial soft tissues are unremarkable. CERVICAL: The images are degraded by motion artifact. Postcontrast sagittal images were not obtained. Counting reference: Craniocerv (more content not included)...DIV[facility] OF RAD[facility], [facility] [place] - 05/09/2023 * * *Final Report* * * DATE OF EXAM: May 09 2023 3:42PM LN 0134 - MRI L-SPINE PREOP LOCAL W IVCON / PROCEDURE REASON: Cervicalgia * * * * Physician Interpretation * * * * EXAMINATION: MRI BRAIN WO/W IVCON, MRI CERVICAL SPINE WO/W IVCON, MRI THORACIC SPINE WO/W IVCON, MRI L-SPINE PREOP LOCAL W IVCON CLINICAL HISTORY: Fungal meningitis, urothelial carcinoma with micropapillary differentiation?s/p radical cystectomy?and ileal conduit?(04/2021, never received BCG), HTN, DM1,?chronic sinusitis, and asthma?with recent admission for?new hydrocephalus and?enhancement?of the anterior sabra, medulla, and spine from C7-T3 and L1-S2. TECHNIQUE: Routine brain MRI protocol without and with contrast including diffusion images. MQ: MRBWOW_2 Routine cervical, thoracic, and lumbosacral spine MR protocol without and with intravenous gadolinium. MQ: MRCTLWO_3 Contrast: 12 mL Dotarem IV COMPARISON: CT brain 11/15/2022, MRI brain and complete spine 07/07/2022 RESULT: MR BRAIN: Postoperative findings of a right frontal approach ventriculostomy shunt catheter with tip terminating in the right frontal horn of the lateral ventricle near the foramen of Krause. Artifact from the ventriculostomy shunt partially obscures the right cerebral hemisphere on the susceptibility in the diffusion weighted images. Acute Change: There is no evidence of restricted diffusion to suggest acute infarct within constraints of artifact. Hemorrhage: Again noted is linear susceptibility along the right cerebellar folia compatible with chronic subarachnoid blood products in unchanged from the prior MRI. There is trace susceptibility in the bilateral occipital horns and lateral atrium, suggesting small amount of chronic intraventricular blood products. Focal susceptibility artifact in the right frontal lobe is unchanged and could reflect a remote microhemorrhage. No new findings of prior intracranial hemorrhage on the susceptibility weighted images within constraints of artifact. Mass Lesion/ Mass Effect: Compared to the prior MRI from 07/06/2022, there has been interval improvement in abnormal enhancement along the prepontine cistern with decreased size of the peripherally enhancing collection, which now measures 0.3 x 1.6 cm, previously 0.6 x 2.2 cm (series 18, image 64). Interval decreased pachymeningeal enhancement extending along the left cerebellar tentorial leaflet and ventral margins of the prepontine and cerebellopontine angle cisterns compared to the prior exam with decreased thickness. There is contiguous extension to the posterior margin of the sella with enhancing soft tissue abutting the inferior margin of the hypothalamus and posterior margin of the optic chiasm. This appears similar to slightly improved compared to the prior exam. Pachymeningeal enhancement extends to the margins of bilateral Meckel's caves but without clear extension into the Meckel's caves. There complete resolution of previously seen leptomeningeal enhancement along the left ventral sabra, pontomedullary junction, and medulla compared to the prior MRI with improved associated FLAIR signal abnormality. Apparent FLAIR signal within the right frontal sulci underlying the ventriculostomy shunt is likely artifactual. No new or progressive pathologic parenchymal or leptomeningeal enhancement elsewhere in the brain. No significant mass effect. Chronic Change: Scattered patchy confluent areas of T2 and FLAIR hyperintensity in the supratentorial white matter, for example in the right frontoparietal centrum semiovale and left periatrial white matter, nonspecific but could reflect chronic microvascular ischemic change. There is FLAIR hyperintensity along the right frontal approach ventriculostomy shunt catheter tract, likely reflecting gliosis. Parenchyma: No significant volume loss for age. The brain parenchyma is otherwise within normal limits of signal intensity and morphology. 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 Periventricular interstitial edema has resolved since the prior exam. The ventricles are now normal in caliber and configuration. Skull Base: Hypothalamic and pituitary region are grossly normal. Craniocervical junction is normal. No significant marrow replacement process. Vasculature: Major intracranial arterial structures, and dural venous sinuses show typical flow void, suggesting patency by spin echo criteria. Other: The visualized paranasal sinuses and mastoid air cells are clear. The orbits and extracranial soft tissues are unremarkable. CERVICAL: The images are degraded by motion artifact. Postcontrast sagittal images were not obtained. Coun (more content not included)...[facility] Thoracic spine WO and W contrast [place] 05-09-2023* * *Final Report* * * DATE OF EXAM: May 09 2023 3:44PM [facility] 0326 - MRI THORACIC SPINE WO/W IVCON / PROCEDURE REASON: Cervicalgia * * * * Physician Interpretation * * * * EXAMINATION: MRI BRAIN WO/W IVCON, MRI CERVICAL SPINE WO/W IVCON, MRI THORACIC SPINE WO/W IVCON, MRI L-SPINE PREOP LOCAL W IVCON CLINICAL HISTORY: Fungal meningitis, urothelial carcinoma with micropapillary differentiation?s/p radical cystectomy?and ileal conduit?(04/2021, never received BCG), HTN, DM1,?chronic sinusitis, and asthma?with recent admission for?new hydrocephalus and?enhancement?of the anterior sabra, medulla, and spine from C7-T3 and L1-S2. TECHNIQUE: Routine brain MRI protocol without and with contrast including diffusion images. MQ: MRBWOW_2 Routine cervical, thoracic, and lumbosacral spine MR protocol without and with intravenous gadolinium. MQ: MRCTLWO_3 Contrast: 12 mL Dotarem IV COMPARISON: CT brain 11/15/2022, MRI brain and complete spine 07/07/2022 RESULT: MR BRAIN: Postoperative findings of a right frontal approach ventriculostomy shunt catheter with tip terminating in the right frontal horn of the lateral ventricle near the foramen of Krause. Artifact from the ventriculostomy shunt partially obscures the right cerebral hemisphere on the susceptibility in the diffusion weighted images. Acute Change: There is no evidence of restricted diffusion to suggest acute infarct within constraints of artifact. Hemorrhage: Again noted is linear susceptibility along the right cerebellar folia compatible with chronic subarachnoid blood products in unchanged from the prior MRI. There is trace susceptibility in the bilateral occipital horns and lateral atrium, suggesting small amount of chronic intraventricular blood products. Focal susceptibility artifact in the right frontal lobe is unchanged and could reflect a remote microhemorrhage. No new findings of prior intracranial hemorrhage on the susceptibility weighted images within constraints of artifact. Mass Lesion/ Mass Effect: Compared to the prior MRI from 07/06/2022, there has been interval improvement in abnormal enhancement along the prepontine cistern with decreased size of the peripherally enhancing collection, which now measures 0.3 x 1.6 cm, previously 0.6 x 2.2 cm (series 18, image 64). Interval decreased pachymeningeal enhancement extending along the left cerebellar tentorial leaflet and ventral margins of the prepontine and cerebellopontine angle cisterns compared to the prior exam with decreased thickness. There is contiguous extension to the posterior margin of the sella with enhancing soft tissue abutting the inferior margin of the hypothalamus and posterior margin of the optic chiasm. This appears similar to slightly improved compared to the prior exam. Pachymeningeal enhancement extends to the margins of bilateral Meckel's caves but without clear extension into the Meckel's caves. There complete resolution of previously seen leptomeningeal enhancement along the left ventral sabra, pontomedullary junction, and medulla compared to the prior MRI with improved associated FLAIR signal abnormality. Apparent FLAIR signal within the right frontal sulci underlying the ventriculostomy shunt is likely artifactual. No new or progressive pathologic parenchymal or leptomeningeal enhancement elsewhere in the brain. No significant mass effect. Chronic Change: Scattered patchy confluent areas of T2 and FLAIR hyperintensity in the supratentorial white matter, for example in the right frontoparietal centrum semiovale and left periatrial white matter, nonspecific but could reflect chronic microvascular ischemic change. There is FLAIR hyperintensity along the right frontal approach ventriculostomy shunt catheter tract, likely reflecting gliosis. Parenchyma: No significant volume loss for age. The brain parenchyma is otherwise within normal limits of signal intensity and morphology. 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 Periventricular interstitial edema has resolved since the prior exam. The ventricles are now normal in caliber and configuration. Skull Base: Hypothalamic and pituitary region are grossly normal. Craniocervical junction is normal. No significant marrow replacement process. Vasculature: Major intracranial arterial structures, and dural venous sinuses show typical flow void, suggesting patency by spin echo criteria. Other: The visualized paranasal sinuses and mastoid air cells are clear. The orbits and extracranial soft tissues are unremarkable. CERVICAL: The images are degraded by motion artifact. Postcontrast sagittal images were not obtained. Counting reference: Craniocervic (more content not included)...DIVISION OF RADIOLOGYProvider, [facility] [place] - 05/09/2023 * * *Final Report* * * DATE OF EXAM: May 09 2023 3:44PM [facility] 0326 - MRI THORACIC SPINE WO/W IVCON / PROCEDURE REASON: Cervicalgia * * * * Physician Interpretation * * * * EXAMINATION: MRI BRAIN WO/W IVCON, MRI CERVICAL SPINE WO/W IVCON, MRI THORACIC SPINE WO/W IVCON, MRI L-SPINE PREOP LOCAL W IVCON CLINICAL HISTORY: Fungal meningitis, urothelial carcinoma with micropapillary differentiation?s/p radical cystectomy?and ileal conduit?(04/2021, never received BCG), HTN, DM1,?chronic sinusitis, and asthma?with recent admission for?new hydrocephalus and?enhancement?of the anterior sabra, medulla, and spine from C7-T3 and L1-S2. TECHNIQUE: Routine brain MRI protocol without and with contrast including diffusion images. MQ: MRBWOW_2 Routine cervical, thoracic, and lumbosacral spine MR protocol without and with intravenous gadolinium. MQ: MRCTLWO_3 Contrast: 12 mL Dotarem IV COMPARISON: CT brain 11/15/2022, MRI brain and complete spine 07/07/2022 RESULT: MR BRAIN: Postoperative findings of a right frontal approach ventriculostomy shunt catheter with tip terminating in the right frontal horn of the lateral ventricle near the foramen of Krause. Artifact from the ventriculostomy shunt partially obscures the right cerebral hemisphere on the susceptibility in the diffusion weighted images. Acute Change: There is no evidence of restricted diffusion to suggest acute infarct within constraints of artifact. Hemorrhage: Again noted is linear susceptibility along the right cerebellar folia compatible with chronic subarachnoid blood products in unchanged from the prior MRI. There is trace susceptibility in the bilateral occipital horns and lateral atrium, suggesting small amount of chronic intraventricular blood products. Focal susceptibility artifact in the right frontal lobe is unchanged and could reflect a remote microhemorrhage. No new findings of prior intracranial hemorrhage on the susceptibility weighted images within constraints of artifact. Mass Lesion/ Mass Effect: Compared to the prior MRI from 07/06/2022, there has been interval improvement in abnormal enhancement along the prepontine cistern with decreased size of the peripherally enhancing collection, which now measures 0.3 x 1.6 cm, previously 0.6 x 2.2 cm (series 18, image 64). Interval decreased pachymeningeal enhancement extending along the left cerebellar tentorial leaflet and ventral margins of the prepontine and cerebellopontine angle cisterns compared to the prior exam with decreased thickness. There is contiguous extension to the posterior margin of the sella with enhancing soft tissue abutting the inferior margin of the hypothalamus and posterior margin of the optic chiasm. This appears similar to slightly improved compared to the prior exam. Pachymeningeal enhancement extends to the margins of bilateral Meckel's caves but without clear extension into the Meckel's caves. There complete resolution of previously seen leptomeningeal enhancement along the left ventral sabra, pontomedullary junction, and medulla compared to the prior MRI with improved associated FLAIR signal abnormality. Apparent FLAIR signal within the right frontal sulci underlying the ventriculostomy shunt is likely artifactual. No new or progressive pathologic parenchymal or leptomeningeal enhancement elsewhere in the brain. No significant mass effect. Chronic Change: Scattered patchy confluent areas of T2 and FLAIR hyperintensity in the supratentorial white matter, for example in the right frontoparietal centrum semiovale and left periatrial white matter, nonspecific but could reflect chronic microvascular ischemic change. There is FLAIR hyperintensity along the right frontal approach ventriculostomy shunt catheter tract, likely reflecting gliosis. Parenchyma: No significant volume loss for age. The brain parenchyma is otherwise within normal limits of signal intensity and morphology. 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 Periventricular interstitial edema has resolved since the prior exam. The ventricles are now normal in caliber and configuration. Skull Base: Hypothalamic and pituitary region are grossly normal. Craniocervical junction is normal. No significant marrow replacement process. Vasculature: Major intracranial arterial structures, and dural venous sinuses show typical flow void, suggesting patency by spin echo criteria. Other: The visualized paranasal sinuses and mastoid air cells are clear. The orbits and extracranial soft tissues are unremarkable. CERVICAL: The images are degraded by motion artifact. Postcontrast sagittal images were not obtained. Counti (more content not included)...[facility] SystemNo Panel Informationon [id number]: Interval decreased size of the peripherally enhancing collection in the interpeduncular, prepontine and cerebellopontine angle cisterns compared to the prior MRI. Near complete resolution of leptomeningeal enhancement involving the prepontine cistern and cerebellopontine angle cisterns, along the surface of the sabra and medulla compared to prior exam. No new or progressive pathologic enhancement. 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 Ventricular interstitial edema compared to the prior exam. Right frontal approach ventriculostomy shunt catheter is present. Interval improvement in diffuse abnormal leptomeningeal and pachymeningeal intradural enhancement throughout the cervical, thoracic and lumbar spine compared to the prior MRI 07/07/2022 with residual decreased patchy enhancement in the thoracic and lumbar spine. Patchy residual enhancement along the cauda equina nerve roots and ventral thecal sac in the lumbar spine, improved. Persistent abnormal intramedullary T2/STIR hyperintense signal in the thoracic cord with slight increased caudal extension from T2-T3 to T7-T8 compared to prior exam. Persistent deformity and expansion of the cord at these levels. Unchanged loculated arachnoid collection along the ventral lower cervical and upper thoracic spine with displacement of the cervical thoracic cord compared to prior exam. Postoperative findings of dorsal decompression at T5-T6 with involution of the previously seen postoperative collection in the laminectomy defect and resolution of mass effect. Unchanged chronic compression fracture of T5 without bony retropulsion or canal stenosis. No significant canal or foraminal stenoses in the cervical, thoracic or lumbar spine. Cervical Anatomic Variant: None. Assume 7 cervical vertebrae with counting from the craniocervical junction. Anatomic Thoracic/Lumbar Variant: None. L4-5 is considered the level of the iliac crest and assume there are 5 lumbar-type vertebrae. Laundry Aid: SUMA Transcribe Date/Time: May 09 2023 4:27P Dictated by : AKANKSHA CHAUDHARY MD This examination was interpreted and the report reviewed and electronically signed by: AKANKSHA CHAUDHARY MD on May 09 2023 5:31PM EST DIVISION OF RADIOLOGYRadiology Study observation (narrative)[facility] SystemNo Panel InformationOrdered By: Cc Provider on [id number] POS[place], SERUMon [id number] [Mass/Vol]3.7 ug/mL0.7 - 3.9 ug/mL [facility]-REACTIVE PROTEIN (CRP)on [id number] [Mass/Vol]<0.9 mg/dL [facility] W Auto Differential panel (Bld)on [id number] (Bld) [#/Vol]0.03 10*3/uL<0.11 k/uLThe Metrohealth SystemBasophils/100 WBC (Bld)0.7 % [facility] SystemDifferential cell count method Nom (Bld)AutoClevelOhioHealth Southeastern Medical Center Eosinophils (Bld) [#/Vol]0.08 10*3/uL<0.46 k/uLThe Metrohealth SystemEosinophils/100 WBC (Bld)1.8 %The [facility] SystemErythrocyte distribution width (RBC) [Ratio]13.9 % 11.5 - 15.0 %[facility] SystemHematocrit (Bld) [Volume fraction]38.4 %36.0 - 46.0 %[facility] SystemHemoglobin (Bld) [Mass/Vol]12.1 g/dL11.5 - 15.5 g/dLThe Metrohealth SystemImmature granulocytes (Bld) [#/Vol]<0.10 k/uLThe Metrohealth SystemImmature granulocytes/100 WBC (Bld)0.2 %[facility] SystemLymphocytes (Bld) [#/Vol]1.03 10*3/uL1.00 - 4.00 k/uLThe Metrohealth SystemLymphocytes/100 WBC (Bld)23.1 %[facility] HospitalH (RBC) [Entitic mass]29.4 pg26.0 - 34.0 pgClevelSteven Community Medical CenterHC (RBC) [Mass/Vol]31.5 g/dL30.5 - 36.0 g/dLProMedica Flower HospitalV (RBC) [Entitic vol]93.2 fL80.0 - 100.0 fLCleveland Canby Medical CenterMonocytes (Bld) [#/Vol]0.44 10*3/uL<0.87 k/uL [facility] SystemMonocytes/100 WBC (Bld)9.9 %[facility] SystemNeutrophils (Bld) [#/Vol]2.86 10*3/uL1.45 - 7.50 k/uLThe Metrohealth SystemNeutrophils/100 WBC (Bld)64.3 %[facility] SystemNucleated RBC (Bld) [#/Vol]<0.01 k/uLThe Metrohealth SystemNucleated RBC/100 WBC (Bld) [Ratio]0.0 /100 WBCThe Metrohealth SystemPlatelet mean volume (Bld) [Entitic vol]10.0 fL9.0 - 12.7 fLCleveland ClinicPlatelets (Bld) [#/Vol]325 10*3/uL150 - 400 k/uLWhite Hall ClinicRBC (Bld) [#/Vol]4.12 10*6/uL3.90 - 5.20 m/uLWhite Hall ClinicWBC (Bld) [#/Vol]4.45 10*3/uL3.70 - 11.00 k/uLThe Metrohealth SystemComprehensive metabolic 2000 panelon [id number] [Mass/Vol]4.1 g/dL 3.9 - 4.9 g/dLWhite Hall ClinicALP [Catalytic activity/Vol]90 U/L34 - 123 U/L [facility] ClinicALT [Catalytic activity/Vol]19 U/L7 - 38 U/LClevelOhioHealth Southeastern Medical Center Anion gap [Moles/Vol]8 mmol/LLow9 - 18 mmol/LCleveland ClinicAST [Catalytic activity/Vol]19 U/L13 - 35 U/LCleveland Canby Medical CenterBilirubin [Mass/Vol]0.4 mg/dL0.2 - 1.3 mg/dLWhite Hall ClinicCalcium [Mass/Vol]9.5 mg/dL8.5 - 10.2 mg/dLThe [facility]health SystemChloride [Moles/Vol]105 mmol/L97 - 105 mmol/LCleveland ClinicCO2 [Moles/Vol]29 mmol/L22 - 30 mmol/LCleveland ClinicCreatinine [Mass/Vol]0.64 mg/dL0.58 - 0.96 mg/dLThe [facility] SystemEstimated Glomerular Filtration Bgtu923 mL/min/1.73m>=60 mL/min/1.73mCleveland Canby Medical CenterGlucose [Mass/Vol]143 mg/vERexu43 - 99 mg/dLThe [facility] SystemPotassium [Moles/Vol]4.0 mmol/L3.7 - 5.1 mmol/L [facility] ClinicProtein [Mass/Vol]6.6 g/dL6.3 - 8.0 g/dLWhite Hall ClinicSodium [Moles/Vol]142 mmol/L136 - 144 mmol/LCleveland ClinicUrea nitrogen [Mass/Vol]16 mg/dL7 - 21 mg/dLWayne Hospital Westergren method (Bld) [Velocity]on [id number] (Bld) [Velocity]8 mm/h0 - 20 mm/hrThe Metrohealth SystemHbA1c (Bld)on [id number] glucose Estimated from glycated hemoglobin (Bld) [Mass/Vol]166 mg/dLThe Metrohealth SystemHbA1c (Bld) [Mass fraction]7.4 %High4.3 - 5.6 %The [facility] SystemCT Chest W contrast [place] [id number]: 1. Interval resolution of the previously noted centrilobular groundglass opacities. 2. New patchy and streaky scarring/discoid atelectasis in the left lower lobe. Consider follow-up to complete resolution. 3. Other subcentimeter nodular opacities measuring less than 5 mm, stable since 06/15/22. Transcribe Date/Time: Dec 25 2022 4:30P Dictated by: ALEKSANDR KRUEGER MD This examination was interpreted and the report reviewed and electronically signed by: ALEKSANDR KRUEGER MD on Dec 25 2022 10:00PM EST Thank you for allowing us to participate in the care of your patient. Should there be any questions regarding this interpretation, please call [phone]. If you are unable to reach us at the number above, please feel free to contact [facility] eRadiology at [phone].DIVISION OF RADIOLOGY* * *Final Report* * * DATE OF EXAM: Dec 25 2022 10:58AM [facility] 0539 - CT CHEST W IVCON / PROCEDURE REASON: History of bladder cancer * * * * Physician Interpretation * * * * RESULT: EXAMINATION: CHEST CT WITH CONTRAST CLINICAL HISTORY: Bladder cancer follow-up Technique: Spiral CT acquisition of the chest from the thoracic inlet to the upper abdomen following IV contrast. MQ: CTCW_6 Contrast: 125 mL Omnipaque [address] Radiation dose: Integrated Dose-length product (DLP) for this visit = 2299 mGy*cm CT Dose Reduction Employed: Automated exposure control (AEC) Comparison: 06/15/22 RESULT: Limitations: None. Lines, tubes, and devices: 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 tubing is noted in the right anterior chest wall.. Lung parenchyma and airways: Subcentimeter nodular opacities measuring less than 5 mm, stable. For example: Right upper lobe (3:59) Right middle lobe (3:105, 107) Right lower lobe (3:100, 136, 146) Left upper lobe (3:44) Left lower lobe (3:121) Interval resolution of the previously noted centrilobular groundglass opacities. New patchy and streaky scarring/discoid atelectasis in the left lower lobe. The central airways are patent. Pleural space: No pleural effusion. No pleural thickening. Lower neck, lymph nodes, and mediastinum: The imaged thyroid gland is normal. No lymphadenopathy in the supraclavicular, axillary, mediastinal, or hilar regions. Patulous esophagus is again noted. Heart, pericardium, and thoracic vessels: The thoracic aorta and main pulmonary artery are normal in caliber. The cardiac chambers are normal in size. No coronary artery atherosclerotic calcifications are noted, although the study is not optimized for coronary assessment. No pericardial effusion or thickening. Bones and soft tissues: Healing fracture deformities of multiple bilateral anterior ribs are again noted. No new osseous abnormalities. Upper abdomen: Please refer to the abdomen CT scan report for the abdomen findings. Risk And Insurance Consultant (topogram) images: No additional findings. DIVISION OF RADIOLOGYProvider, [facility] [place] - 12/25/2022 * * *Final Report* * * DATE OF EXAM: Dec 25 2022 10:58AM [facility] 0539 - CT CHEST W IVCON / PROCEDURE REASON: History of bladder cancer * * * * Physician Interpretation * * * * RESULT: EXAMINATION: CHEST CT WITH CONTRAST CLINICAL HISTORY: Bladder cancer follow-up Technique: Spiral CT acquisition of the chest from the thoracic inlet to the upper abdomen following IV contrast. MQ: CTCW_6 Contrast: 125 mL Omnipaque [address] Radiation dose: Integrated Dose-length product (DLP) for this visit = 2299 mGy*cm CT Dose Reduction Employed: Automated exposure control (AEC) Comparison: 06/15/22 RESULT: Limitations: None. Lines, tubes, and devices: 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 tubing is noted in the right anterior chest wall.. Lung parenchyma and airways: Subcentimeter nodular opacities measuring less than 5 mm, stable. For example: Right upper lobe (3:59) Right middle lobe (3:105, 107) Right lower lobe (3:100, 136, 146) Left upper lobe (3:44) Left lower lobe (3:121) Interval resolution of the previously noted centrilobular groundglass opacities. New patchy and streaky scarring/discoid atelectasis in the left lower lobe. The central airways are patent. Pleural space: No pleural effusion. No pleural thickening. Lower neck, lymph nodes, and mediastinum: The imaged thyroid gland is normal. No lymphadenopathy in the supraclavicular, axillary, mediastinal, or hilar regions. Patulous esophagus is again noted. Heart, pericardium, and thoracic vessels: The thoracic aorta and main pulmonary artery are normal in caliber. The cardiac chambers are normal in size. No coronary artery atherosclerotic calcifications are noted, although the study is not optimized for coronary assessment. No pericardial effusion or thickening. Bones and soft tissues: Healing fracture deformities of multiple bilateral anterior ribs are again noted. No new osseous abnormalities. Upper abdomen: Please refer to the abdomen CT scan report for the abdomen findings. Risk And Insurance Consultant (topogram) images: No additional findings. IMPRESSION IMPRESSION: 1. Interval resolution of the previously noted centrilobular groundglass opacities. 2. New patchy and streaky scarring/discoid atelectasis in the left lower lobe. Consider follow-up to complete resolution. 3. Other subcentimeter nodular opacities measuring less than 5 mm, stable since 06/15/22. Transcribe Date/Time: Dec 25 2022 4:30P Dictated by: ALEKSANDR KRUEGER MD This examination was interpreted and the report reviewed and electronically signed by: ALEKSANDR KRUEGER MD on Dec 25 2022 10:00PM EST Thank you for allowing us to participate in the care of your patient. Should there be any questions regarding this interpretation, please call [phone]. If you are unable to reach us at the number above, please feel free to contact [facility] e[facility]iology at [phone]. The [facility] SystemCT Kidney WO and W contrast [place] [id number]: 1. New trace pelvic ascites. 2. 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 Consider interval follow-up or direct visualization. 3. Otherwise no evidence of intra-abdominal/pelvic metastases. 4. Punctate nonobstructing left renal stones. Transcribe Date/Time: Dec 25 2022 4:42P Dictated by: ALEKSANDR KRUEGER MD This examination was interpreted and the report reviewed and electronically signed by: ALEKSANDR KRUEGER MD on Dec 25 2022 10:00PM EST Thank you for allowing us to participate in the care of your patient. Should there be any questions regarding this interpretation, please call [phone]. If you are unable to reach us at the number above, please feel free to contact [facility] at [phone].DIVISION OF RADIOLOGY* * *Final Report* * * DATE OF EXAM: Dec 25 2022 10:58AM [facility] 0560 - CT UROGRAM WO/W IVCON / PROCEDURE REASON: History of bladder cancer * * * * Physician Interpretation * * * * RESULT: EXAMINATION: CT ABDOMEN AND PELVIS WITHOUT AND WITH IV CONTRAST, INCLUDING EXCRETORY PHASE IMAGING (CT UROGRAM) 3D RECONSTRUCTIONS CLINICAL HISTORY: Bladder cancer. TECHNIQUE: CT urogram protocol including unenhanced, renal parenchymal phase and excretory phase renal imaging was obtained following IV contrast. Normal saline was also administered IV. No oral contrast was given. 3D image post-processing was performed and archived at the request of the referring physician, on the CT scanner workstation without concurrent physician supervision. MQ: CTU_2 Contrast: IV: 125 ml of Omnipaque 300 IV Saline: ml of Oral Contrast: None CT Radiation dose: Integrated dose-length product (DLP) for this visit = 2299 mGy*cm. CT Dose Reduction Employed: Automated exposure control (AEC) COMPARISON: 06/15/22. RESULT: Kidneys and urinary tract: Right: There are no renal calculi or masses. The opacified calices, renal pelvis and ureter are normal without dilation, filling defect, or stricture. Left: 1 mm nonobstructing stones. Subcentimeter cyst. The opacified calices, renal pelvis and ureter are normal without dilation, filling defect, or stricture. Bladder: Status post cystectomy. 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 Nonspecific mild wall thickening and mild wall enhancement of the ileal diversion (4:100) is noted. Abdomen and Pelvis: Liver: No mass. Biliary: No bile duct dilation. Gallbladder is unremarkable. Spleen: No mass. No splenomegaly. Pancreas: No mass or duct dilation. Adrenals: No mass. GI tract: No dilation or wall thickening. Lymph nodes: No abdominal or pelvic lymphadenopathy. Mesentery/Peritoneum: New trace pelvic ascites. Interval placement of a 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 shunt is noted with the tip in the left hemipelvis. Retroperitoneum: No mass. Vasculature: - Abdominal aorta and iliac arteries: Atherosclerotic calcifications without aneurysm. - Celiac and SMA: Patent without stenosis. - Portal venous system (SMV, splenic vein, portal vein and branches): Patent. - Hepatic veins: Patent. Pelvis: No mass, ascites or fluid collection. Bones and Soft Tissues: No new osseous abnormalities. Lower thorax: A chest CT performed will be reported separately. Risk And Insurance Consultant (topogram) images: No additional findings. DIVISION OF RADIOLOGYProvider, [facility] [place] - 12/25/2022 * * *Final Report* * * DATE OF EXAM: Dec 25 2022 10:58AM [facility] 0560 - CT UROGRAM WO/W IVCON / PROCEDURE REASON: History of bladder cancer * * * * Physician Interpretation * * * * RESULT: EXAMINATION: CT ABDOMEN AND PELVIS WITHOUT AND WITH IV CONTRAST, INCLUDING EXCRETORY PHASE IMAGING (CT UROGRAM) 3D RECONSTRUCTIONS CLINICAL HISTORY: Bladder cancer. TECHNIQUE: CT urogram protocol including unenhanced, renal parenchymal phase and excretory phase renal imaging was obtained following IV contrast. Normal saline was also administered IV. No oral contrast was given. 3D image post-processing was performed and archived at the request of the referring physician, on the CT scanner workstation without concurrent physician supervision. MQ: CTU_2 Contrast: IV: 125 ml of Omnipaque 300 IV Saline: ml of Oral Contrast: None CT Radiation dose: Integrated dose-length product (DLP) for this visit = 2299 mGy*cm. CT Dose Reduction Employed: Automated exposure control (AEC) COMPARISON: 06/15/22. RESULT: Kidneys and urinary tract: Right: There are no renal calculi or masses. The opacified calices, renal pelvis and ureter are normal without dilation, filling defect, or stricture. Left: 1 mm nonobstructing stones. Subcentimeter cyst. The opacified calices, renal pelvis and ureter are normal without dilation, filling defect, or stricture. Bladder: Status post cystectomy. 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 Nonspecific mild wall thickening and mild wall enhancement of the ileal diversion (4:100) is noted. Abdomen and Pelvis: Liver: No mass. Biliary: No bile duct dilation. Gallbladder is unremarkable. Spleen: No mass. No splenomegaly. Pancreas: No mass or duct dilation. Adrenals: No mass. GI tract: No dilation or wall thickening. Lymph nodes: No abdominal or pelvic lymphadenopathy. Mesentery/Peritoneum: New trace pelvic ascites. Interval placement of a 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 shunt is noted with the tip in the left hemipelvis. Retroperitoneum: No mass. Vasculature: - Abdominal aorta and iliac arteries: Atherosclerotic calcifications without aneurysm. - Celiac and SMA: Patent without stenosis. - Portal venous system (SMV, splenic vein, portal vein and branches): Patent. - Hepatic veins: Patent. Pelvis: No mass, ascites or fluid collection. Bones and Soft Tissues: No new osseous abnormalities. Lower thorax: A chest CT performed will be reported separately. Risk And Insurance Consultant (topogram) images: No additional findings. IMPRESSION IMPRESSION: 1. New trace pelvic ascites. 2. 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 Consider interval follow-up or direct visualization. 3. Otherwise no evidence of intra-abdominal/pelvic metastases. 4. Punctate nonobstructing left renal stones. Transcribe Date/Time: Dec 25 2022 4:42P Dictated by: ALEKSANDR KRUEGER MD This examination was interpreted and the report reviewed and electronically signed by: ALEKSANDR KRUEGER MD on Dec 25 2022 10:00PM EST Thank you for allowing us to participate in the care of your patient. Should there be any questions regarding this interpretation, please call [phone]. If you are unable to reach us at the number above, please feel free to contact [facility] at [phone]. [facility] Panel InformationOrdered By: [facility] Provider on 12-25-2022 [facility] Panel Informationon [id number] Study observation (narrative)[facility] Head WO contraston [id number]: 1. RIGHT frontal approach ventriculostomy shunt catheter in unchanged position with stable to minimal interval decrease in size of ventricular system, as detailed. No hydrocephalus. 2. Slight interval decrease in size of small bifrontal convexity subdural hygromas. 3. Minimal chronic senescent related changes without evidence of new superimposed acute intracranial process. Transcribe Date/Time: Nov 15 2022 10:57A Dictated by: MYRNA PATEL MD This examination was interpreted and the report reviewed and electronically signed by: MYRNA PATEL MD on Nov 15 2022 11:09AM EST Thank you for allowing us to participate in the care of your patient. Should there be any questions regarding this interpretation, please call [phone]. If you are unable to reach us at the number above, please feel free to contact [facility] at [phone].DIVISION OF RADIOLOGY* * *Final Report* * * DATE OF EXAM: Nov 15 2022 10:28AM [facility] 0504 - CT BRAIN WO IVCON / PROCEDURE REASON: Other hydrocephalus (HCC) * * * * Physician Interpretation * * * * RESULT: EXAMINATION: CT BRAIN WO IVCON CLINICAL HISTORY: Hydrocephalus. TECHNIQUE: Serial axial images without IV contrast were obtained from the vertex to the foramen magnum. MQ: CTBWO_3 CT Radiation dose: Integrated Dose-Length Product (DLP) for this visit = 766 mGy*cm CT Dose Reduction Employed: Iterative recon COMPARISON: None. RESULT: Post-operative change: Postoperative changes of RIGHT frontal approach ventriculostomy catheter with the tip terminating in the RIGHT lateral ventricle near the foramen of Krause, not significantly changed in position from 09/14/2022. Extracranial ventricular catheter appears intact. Acute change: No evidence of an acute infarct or other acute parenchymal process. Hemorrhage: No evidence of acute intracranial hemorrhage. ECASS hemorrhagic transformation score: Not Applicable Mass Lesion / Mass Effect: Slight interval decrease in size of small subdural hygromas overlying the bilateral frontal convexities. No evidence of intracranial mass. No significant mass effect. Chronic change: Scattered patchy foci of low attenuation are present within supratentorial white matter which is a nonspecific finding but likely represents mild microvascular ischemia. Parenchyma: There is no significant volume loss. The brain parenchyma is otherwise within normal limits for age. Ventricles: Utilizing coregistration software for slice by slice comparison, the overall caliber and morphology of the ventricular system appears stable to minimally decreased in size from 09/14/2022. For example, the LEFT lateral ventricle frontal horn measures up to 4 mm in greatest transaxial dimension, previously 5 mm and the RIGHT lateral ventricle frontal horn measures up to 2 mm in greatest transaxial dimension, previously 4 mm. Paranasal sinuses and skull base: The visualized paranasal sinuses are grossly clear. The skull base and imaged soft tissues are unremarkable. DIVISION OF RADIOLOGYProvider, [facility] [place] - 11/15/2022 * * *Final Report* * * DATE OF EXAM: Nov 15 2022 10:28AM [facility] 0504 - CT BRAIN WO IVCON / PROCEDURE REASON: Other hydrocephalus (HCC) * * * * Physician Interpretation * * * * RESULT: EXAMINATION: CT BRAIN WO IVCON CLINICAL HISTORY: Hydrocephalus. TECHNIQUE: Serial axial images without IV contrast were obtained from the vertex to the foramen magnum. MQ: CTBWO_3 CT Radiation dose: Integrated Dose-Length Product (DLP) for this visit = 766 mGy*cm CT Dose Reduction Employed: Iterative recon COMPARISON: None. RESULT: Post-operative change: Postoperative changes of RIGHT frontal approach ventriculostomy catheter with the tip terminating in the RIGHT lateral ventricle near the foramen of Krause, not significantly changed in position from 09/14/2022. Extracranial ventricular catheter appears intact. Acute change: No evidence of an acute infarct or other acute parenchymal process. Hemorrhage: No evidence of acute intracranial hemorrhage. ECASS hemorrhagic transformation score: Not Applicable Mass Lesion / Mass Effect: Slight interval decrease in size of small subdural hygromas overlying the bilateral frontal convexities. No evidence of intracranial mass. No significant mass effect. Chronic change: Scattered patchy foci of low attenuation are present within supratentorial white matter which is a nonspecific finding but likely represents mild microvascular ischemia. Parenchyma: There is no significant volume loss. The brain parenchyma is otherwise within normal limits for age. Ventricles: Utilizing coregistration software for slice by slice comparison, the overall caliber and morphology of the ventricular system appears stable to minimally decreased in size from 09/14/2022. For example, the LEFT lateral ventricle frontal horn measures up to 4 mm in greatest transaxial dimension, previously 5 mm and the RIGHT lateral ventricle frontal horn measures up to 2 mm in greatest transaxial dimension, previously 4 mm. Paranasal sinuses and skull base: The visualized paranasal sinuses are grossly clear. The skull base and imaged soft tissues are unremarkable. IMPRESSION IMPRESSION: 1. RIGHT frontal approach ventriculostomy shunt catheter in unchanged position with stable to minimal interval decrease in size of ventricular system, as detailed. No hydrocephalus. 2. Slight interval decrease in size of small bifrontal convexity subdural hygromas. 3. Minimal chronic senescent related changes without evidence of new superimposed acute intracranial process. Transcribe Date/Time: Nov 15 2022 10:57A Dictated by: MYRNA PATEL MD This examination was interpreted and the report reviewed and electronically signed by: MYRNA PATEL MD on Nov 15 2022 11:09AM EST Thank you for allowing us to participate in the care of your patient. Should there be any questions regarding this interpretation, please call [phone]. If you are unable to reach us at the number above, please feel free to contact [facility] at [phone]. [facility] (narrative)[facility] Head WO contrastOrdered By: [facility] Provider on [id number] ClinicCT BRAIN WO IVCONon [id number] [facility] CenterCT Head WO contraston [id number]: Right frontal ventricular catheter remains in place with interval decrease in ventricular size since 07/16/2022. No significant ventricular enlargement. Right lateral ventricle appears slit-like and decompressed. Interval resolution of previously seen pneumocephalus. Interval development of small subdural hygromas overlying the frontal lobes measuring up to 8 mm in maximal thickness. Transcribe Date/Time: Aug 16 2022 9:06A Dictated by: ASHLEY AVILEZ MD This examination was interpreted and the report reviewed and electronically signed by: ASHLEY AVILEZ MD on Aug 16 2022 9:10AM EST Thank you for allowing us to participate in the care of your patient. Should there be any questions regarding this interpretation, please call [phone]. If you are unable to reach us at the number above, please feel free to contact [facility] at [phone].DIVISION OF RADIOLOGY* * *Final Report* * * DATE OF EXAM: Aug 16 2022 8:59AM [facility] 0504 - CT BRAIN WO IVCON / PROCEDURE REASON: Other hydrocephalus (HCC) * * * * Physician Interpretation * * * * RESULT: EXAMINATION: CT BRAIN WO IVCON CLINICAL HISTORY: Other hydrocephalus. TECHNIQUE: Serial axial images without IV contrast were obtained from the vertex to the foramen magnum. MQ: CTBWO_3 CT Radiation dose: Integrated Dose-Length Product (DLP) for this visit = 769 mGy*cm CT Dose Reduction Employed: Automated exposure control (AEC) COMPARISON: CT head dated 07/16/2022. RESULT: In the interval, previously seen extra-axial air overlying the right frontal lobe and intraventricular air within the right frontal horn have resolved. Right frontal ventricular shunt catheter remains in place, distal end projecting over the region of the right foramen of Krause. Ventricles have significantly decreased in size since the prior exam and the right lateral ventricle appears fully decompressed. Small low-density subdural collections, likely hygromas overlying the frontal lobes measuring up to 8 mm in maximal thickness, new since the prior exam. No evidence of acute intracranial hemorrhage. No evidence of midline shift. Imaged portions of the paranasal sinuses are clear. Imaged portions of the mastoids are well aerated. DIVISION OF RADIOLOGYProvider, [facility] [place] - 08/16/2022 * * *Final Report* * * DATE OF EXAM: Aug 16 2022 8:59AM [facility] 0504 - CT BRAIN WO IVCON / PROCEDURE REASON: Other hydrocephalus (HCC) * * * * Physician Interpretation * * * * RESULT: EXAMINATION: CT BRAIN WO IVCON CLINICAL HISTORY: Other hydrocephalus. TECHNIQUE: Serial axial images without IV contrast were obtained from the vertex to the foramen magnum. MQ: CTBWO_3 CT Radiation dose: Integrated Dose-Length Product (DLP) for this visit = 769 mGy*cm CT Dose Reduction Employed: Automated exposure control (AEC) COMPARISON: CT head dated 07/16/2022. RESULT: In the interval, previously seen extra-axial air overlying the right frontal lobe and intraventricular air within the right frontal horn have resolved. Right frontal ventricular shunt catheter remains in place, distal end projecting over the region of the right foramen of Krause. Ventricles have significantly decreased in size since the prior exam and the right lateral ventricle appears fully decompressed. Small low-density subdural collections, likely hygromas overlying the frontal lobes measuring up to 8 mm in maximal thickness, new since the prior exam. No evidence of acute intracranial hemorrhage. No evidence of midline shift. Imaged portions of the paranasal sinuses are clear. Imaged portions of the mastoids are well aerated. IMPRESSION IMPRESSION: Right frontal ventricular catheter remains in place with interval decrease in ventricular size since 07/16/2022. No significant ventricular enlargement. Right lateral ventricle appears slit-like and decompressed. Interval resolution of previously seen pneumocephalus. Interval development of small subdural hygromas overlying the frontal lobes measuring up to 8 mm in maximal thickness. Transcribe Date/Time: Aug 16 2022 9:06A Dictated by: ASHLEY AVILEZ MD This examination was interpreted and the report reviewed and electronically signed by: ASHLEY AVILEZ MD on Aug 16 2022 9:10AM EST Thank you for allowing us to participate in the care of your patient. Should there be any questions regarding this interpretation, please call [phone]. If you are unable to reach us at the number above, please feel free to contact [facility] at [phone]. [facility] observation (narrative)[facility] Head WO contrastOrdered By: [facility] Provider on [id number] ClinicCNPNon [id number] (MEPRAD) CHIKIS TOBAR ([id number]) 1965 F Date Time Provider Department 06/08/22 MIK ZAPATA During your visit today, we recorded the following information about you: Mik Zapata MD 06/08/2022 11:25 AM Signed Hospital Medicine Transfer Received page for transfer request from [facility] to [facility]: Chikis Tobar is 57 year old female who presented with DKA and found down. She was initially intubated and treated with insulin drip in the ICU and eventually transferred to the regular floor. While she was being worked up at [facility] she was seen to have thoracic and lumbar lesion suspicious for malignancy. 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 She was seen by oncology and neurology at [facility] recommended transfer to tertiary care facility for further evaluation management. She has history of bladder cancer and has urostomy. Case was discussed with our neurosurgeon Dr. Godwin who agreed to see the patient at [facility] but wanted patient to be admitted under [...] Assessed Reason for Visit: Hospital To Hospital [[id number]] Prescriptions as of 06/08/2022 - insulin aspart [...] 6 hours with 20ml of water - L.acid-L.casei-B.bif-B.mary beth-FOS (PROBIOTIC BLEND) 2 billion cell-50 mg cap Take 1 capsule by mouth once daily. - ondansetron (ZOFRAN) 4 mg tablet Take 1 tablet by mouth every 8 hours as needed for nausea/vomiting. - sulfamethoxazole-trimethoprim (BACTRIM DS,SEPTRA DS) 800-160 mg per [...] Obesity [E66.9] 02/16/2021 Diabe (more content not included)...NormalMedina HospitalBLOOD GASES BTYon MODEVENTILATORLakeHealth Beachwood Medical Center HospitalComment on above:Performed By: #### ABG ####[facility] [address] [place] [address]Dr.Grace LeeENS TESTPositiveLakeHealth Beachwood Medical Center HospitalComment on above:Performed By: #### ABG ####[facility] Lmgibuolby[address] [place] [address]Dr.Grace NasirBase excess Calc (Bld) [Moles/Vol]- 18.00996 mmol/LCritically low-2.0-2.0The [facility] SystemComment on above: Performed By: #### ABG ####[facility] Pvpmmjjohb[address] [place], [place] [address]Dr.Grace BestBIPAP [facility] Ruby Memorial HospitalComment on above:Performed By: #### ABG ####[facility] Rceelkprft[address] [place], [place] [address]Dr.Grace BestCPAPTriHealthComment on above:Performed By: #### ABG ####[facility] Fdmnybcqzz[address] [place], [place] [address]Dr.Grace BestFIO20.21 % NormalThe [facility] Health SystemComment on above:Performed By: #### ABG ####[facility] Gmiciidguv[address] [place], [place] [address]Dr.Grace BestHCO3 (Bld) [Moles/Vol]10.7 mmol/LCritically low22.0-26.0The [facility] SystemComment on above:Performed By: #### ABG ####[facility] Fkrbjnvogt[address] [place], [place] [address]Dr.Grace BestLPMNormalOhio State University Wexner Medical CenterComment on above:Performed By: #### ABG ####[facility] Pkluwzvvjm[address] [place], [place] [address]Dr.Grace BestMINUTE YWLIOC20 LNormalThe Troup HospitalComment on above:Performed By: #### ABG ####[facility] X[address]gqxxii[address] [place] [address]Dr.Grace NasirOxygen (Bld) [Partial pressure]108.0 mm[Hg]Critically high80.0-100.0The [facility] Comment on above:Performed By: #### ABG ####[facility] Mqhqyhqgwo[address] [place], [place] [address]Dr.Grace BestOxygen saturation in Blood97.0 %Gqhpfi44.0-100.0The [facility] SystemComment on above:Performed By: #### ABG ####[facility] Dibfcoajnw[address] [place], [place] [address]Dr. Grace BestPCO230.3 mmHgCritically low35.0-45.0The [facility] SystemComment on above:Performed By: #### ABG ####[facility] Wbpvnfwvtb9[address] [place], [place] [address]Dr.Grace EduniZDJJ1GnhiaqPnw[address] [place], [place] [address]Comment on above:Performed By: #### ABG ####[facility] Vzlddcwizu[address] [place], [place] [address]Dr.Grace BestpH (Bld)7.157 [pH]Critically low 7.350-7.450The [facility] SystemComwalter p. [facility] on above:Performed By: #### ABG ####[facility] Hydtfzriwu[address] [place], [place] [address]Dr. Grace ChangPIPNormalOhio State University Wexner Medical CenterComment on above:Performed By: #### ABG ####[facility] Gamrzmwctk[address] [place], [place] [address]Dr. Grace ChangCincinnati Children's Hospital Medical CenterComment on above:Performed By: #### ABG ####[facility] Hucspczkck[address] [place], [place] [address]Dr. Grace BestPUNCTURE SITEMemorial Health System Marietta Memorial HospitalComwalter p. reuther psychiatric hospital on above:Performed By: #### ABG ####[facility] Jjqjnpgszs[address] [place], [place] [address]Dr.Grace BestRATE20 [facility] Medical CenterComment on above: Performed By: #### ABG ####[facility] [address]xc[address]xd[address] [place] [address]Dr.Grace BestVENT MODEAC/VCTriHealthComment on above:Performed By: #### ABG ####[facility] [address]fxqlzbi[address] [place] [address]Dr.Grace BestVT450 MLNormal The [facility] SystemComment on above:Performed By: #### ABG ####[facility] Gqxp[address]qsdqt[address] [place] [address]Dr.Grace Best02 MODEVENTILATORTriHealthComment on above:Performed By: #### ABG ####[facility] Imcrricyxj[address] [place] [address]Dr. Grace BestALLENS TESTPositiveTriHealthComment on above: Performed By: #### ABG ####[facility] [address]se[address]abnuq[address] [place] [address]Dr.Grace BestBase excess Calc (Bld) [Moles/Vol]- 28.39041 mmol/LCritically low-2.0-2.0The [facility] on above: Performed By: #### ABG ####[facility] Yasuv[address]cpl[address] [place] [address]Dr.Grace BestBIPAP [facility] HospitalComwalter p. [facility] psychiatric hospital on above:Performed By: #### ABG ####[facility] [address]ruwdxs[address] [place] [address]Dr.Grace NasirCPAPTriHealthComwalter p. reuther psychiatric hospital on above:Performed By: #### ABG ####[facility] [address] [place] [address]Dr.Grace BestFIO240.00 % NormalThe [facility] Health SystemComwalter p. reuther psychiatric hospital on above:Performed By: #### ABG ####[facility] [address] [place], [place] [address]Dr.Grace ChangHCO3 (Bld) [Moles/Vol]5.9 mmol/LCritically low22.0-26.0The [facility] Health SystemComment on above:Performed By: #### ABG ####[facility] Cbrnxybxhk74[address] [place], [place] [address]Dr.Grace BestLPMNormalThe [facility] Health SystemComment on above:Performed By: #### ABG ####[facility] Nyqwjnmnku9[address] [place] [address]Dr.Grace BestMINUTE [facility] Comment on above:Performed By: #### ABG ####[facility] Euijhwxoia288[address] [place], [place] [address]Dr.Grace BestOxygen (Bld) [Partial pressure]131.0 mm[Hg]Critically high80.0-100.0The [facility] Health SystemComment on above:Performed By: #### ABG ####[facility] Rfodbjmhoo215[address] [place], [place] [address]Dr.Grace BestOxygen saturation in Blood95.3 %Normal 95.0-100.0The [facility] SystemComment on above:Performed By: #### ABG ####[facility] Qylkzrmrrk919[address] [place], [place] [address]Dr. Grace BestPCO236.1 jgNuJcfhhw70.0-45.0The [facility] SystemComment on above: Performed By: #### ABG ####[facility] Ubxjnbaiqq9967[address] [place], [place] [address]Dr.Grace BestGhdsrKDRD5HjkzglFfaTriHealthComment on above:Performed By: #### ABG ####[facility] Khrnpfyanz1936[address] [place], [place] [address]Dr.Grace BestpH (Bld)6.823 [pH]Critically low 7.350-7.450The [facility] Health SystemComment on above:Performed By: #### ABG ####[facility] Wbswtuckwf17[address] [place], [place] [address]Dr. Grace BestPIPNormalOhio State University Wexner Medical CenterComment on above:Performed By: #### ABG ####[facility] Sxmluvujmp035[address] [place], [place] [address]Dr. YiPremier Healthment on above:Performed By: #### ABG ####[facility] Sakbtuzlvz225[address] [place] [address]Dr. Grace BestPUNCTURE [facility] SystemComwalter [facility] on above:Performed By: #### ABG ####[facility] Pugipuoaju9736 [place] [address]Dr.Grace BestRATE16 [facility] Medical CenterComment on above: Performed By: #### ABG ####[facility] Zzxiwsajks5306 [place] [address]Dr.Grace BestVENT MODEAC/Regency Hospital ToledoComment on above:Performed By: #### ABG ####[facility] Nhtgabmsoi1862 [place] [address]Dr.Grace BestVT400 MLNormal The [facility] Health SystemComment on above:Performed By: #### ABG ####[facility] Yeubelmqgq98[address] [place], [place] [address]Dr.Garce BestBNPon 30-85-3286Grppndrrxyq peptide B (Bld) [Mass/Vol]611.0 pg/mLNormal<=900.0The [facility] Healthment on above:Performed By: #### BMP, CMADM, TSH, BNP ####[facility] Atbbkahalx5078 [place] [address]Dr. Grace BestCARDIAC ALY ADMITon 73-01-6472NQ [Catalytic activity/Vol]98 U/L Oxfoxh29-803Myu [facility] on above:Performed By: #### BMP, CMADM, TSH, BNP ####[facility] Oepeexxrra8370 [place] [address]Dr. Grace BestCK.MB [Mass/Vol]1.93 ng/mLNormal<=3.60The [facility] Comment on above:Performed By: #### BMP, CMADM, TSH, BNP ####[facility] Yzxxkutjov8[address] [place], [place] [address]Dr. Grace BestVkdpdCPXWJE307.3 pg/mLCritically high4.0-51.3The [facility] SystemComment on above:Result Comment: CUT-OFF POINTS HAVE BEEN ESTABLISHED BASED ON THE FOURTH UNIVERSAL DEFINITIONS OF MYOCARDIALINFARCTION. THE UPPER REFERENCE LIMIT (URL) OF TROPONIN, DEFINED THE 99TH PERCENTILE OFcTnI DISTRIBUTION IN A REFERENCE POPULATION, HAS BEEN CONFIRMED THE DECISION THRESHOLDFOR VT DIAGNOSIS. Performed By: #### BMP, CMADM, TSH, BNP ####[facility] Ofmfnxcsyq8515[address] [place], [place] [address]Dr. Yilan ChvvhGPV237 ng/mLCritically high 9-82The [facility] SystemComment on above:Performed By: #### BMP, CMADM, TSH, BNP ####[facility] Pqbikcxfxk961[address] [place], [place] [address]Dr. Yilan ChangCBC AUTO DIFFon 10-48-2977EFBZ #0.1 103/ulNormal0.0-0.1The [facility] Healthment on above:Performed By: #### CBC ####[facility] Cuytrvzlas444[address] [place], [place] [address]Dr.Yilan ChangBasophils/100 WBC (Bld)0.5 %Normal0.2-2.0The [facility] on above:Performed By: #### CBC ####[facility] Mxklmtqomt7570[address] [place], [place] [address]Dr.Yilan ChangEO #0.0 103/ulNormal0.0-0.7The [facility] Healthment on above:Performed By: #### CBC ####[facility] Dqkxgmmzbj848[address] [place], [place] [address]Dr.Yilan ChangEosinophils/100 WBC (Bld)0.1 %Critically low0.9-7.0The [facility] Healthment on above:Performed By: #### CBC ####[facility] Nwednutqzt009[address] [place], [place] [address]Dr. Yilan ChangErythrocyte distribution width (RBC) [Ratio]17.0 %Critically high 11.0-15.0The [facility] Healthment on above:Performed By: #### CBC ####[facility] Hkldwguegw315[address] [place], [place] [address]Dr. Grace BestHematocrit (Bld) [Volume fraction]45.6 %Rqgjab36.0-48.0The [facility] SystemComment on above:Performed By: #### CBC ####[facility] Hcbbmkhlmj407[address] [place], [place] [address]Dr.Grace NasirHemoglobin (Bld) [Mass/Vol]12.9 g/tISjrtlf50.0-16.0The [facility] HospitalComment on above: Performed By: #### CBC ####[facility] Dldotmbkct565[address] [place], [place] [address]Dr.Roxannelan ChangIG #0.43 10e3/ulCritically high0.00-0.03 The [facility] SystemComment on above:Performed By: #### CBC ####[facility] Gcfqrfpakl1822[address] [place], [place] [address]Dr.Grace ChangIG % 2.4 %Critically high0.0-0.5The [facility] Health SystemComment on above:Performed By: #### CBC ####[facility] Jadeoaqgqv713[address] [place], [place] [address]Dr.Roxannecam ChangLYMPH #2.9 103/ulNormal1.2-3.8The [facility] Health SystemComment on above:Performed By: #### CBC ####[facility] Fpsmxjocrw927[address] [place], [place] [address]Dr.Grace BestLymphocytes/100 WBC (Bld)16.1 % Critically low20.5-60.0The [facility] HospitalComment on above:Performed By: #### CBC ####[facility] Ftkgnujsok7434[address] [place], [place] [address]Dr. Roxannecam BestMANUAL DIFF REQNONormalThe [facility] Health SystemComment on above: Performed By: #### CBC ####[facility] Ftjoggmdtv928[address] [place], [place] [address]Dr.Grace BestMCH (RBC) [Entitic mass]30.4 pgNormal 26.7-34.0The [facility] HospitalComment on above:Performed By: #### CBC ####[facility] Npduppwgqx4654 [place] [address]Dr. Grace BestMCHC (RBC) [Mass/Vol]28.3 g/dLCritically low29.9-35.2The [facility] SystemComment on above:Result Comment: 1+ hypochromasiaPerformed By: #### CBC ####[facility] Wrasuerjfp8312[address] [place], [place] [address]Dr. Grace BestMCV (RBC) [Entitic vol]107.5 fLCritically high81.0-99.0The [facility] HospitalComment on above:Result Comment: 1+ macrocytosisPerformed By: #### CBC ####[facility] Fjentktdui6922[address] [place], [place] [address]Dr. Grace BestMONO #0.6 103/ulNormal0.3-0.8The [facility] SystemComment on above: Performed By: #### CBC ####[facility] Aeldjiihxs307[address] [place], [place] [address]Dr.Grace BestMonocytes/100 WBC (Bld)3.1 %Normal 1.7-12.0The [facility] Health SystemComment on above:Performed By: #### CBC ####[facility] Jxzxnibhoo822[address] [place], [place] [address]Dr. Grace BestNEUT #14.1 103/ulCritically high1.4-6.5The [facility] Health SystemComment on above:Performed By: #### CBC ####[facility] Luvoehsqmk024[address] [place], [place] [address]Dr.Grace BestNeutrophils/100 WBC (Bld)77.8 % Critically high43.0-75.0The [facility] HospitalComment on above:Performed By: #### CBC ####[facility] Fcpolqhhdv426[address] [place], [place] [address]Dr. Grace BestPlatelet mean volume (Bld) [Entitic vol]9.6 fLNormal9.5-13.5The [facility] SystemComment on above:Performed By: #### CBC ####[facility] Ymkocnypyh1272 [place] [address]Dr.Grace BestPLT607 103/ul Critically uiyk169-973Ejv [facility] SystemComment on above:Performed By: #### CBC ####[facility] Idcomgdelm7147 [place] [address]Dr. Grace BestRBC4.24 106/ulNormal4.20-5.40The [facility] SystemComment on above: Performed By: #### CBC ####[facility] Xwoivvexyh3994 [place] [address]Dr.Grace BestWBC18.2 103/ulCritically high4.0-11.0The [facility] SystemComment on above:Performed By: #### CBC ####[facility] Ukqfpeilng9524 [place] [address]Dr.Grace NasirCT CSPINE WO CONon 81-89-3048HU CSPINE WO CONNormalOhio State University Wexner Medical CenterCT STROKE HEAD WOon 89-97-6669SV STROKE HEAD WONormalOhio State University Wexner Medical CenterCULTURE BLOODon 05-27-2022 Microscopic examination of blood, cultureCulture Observations: NO GROWTH AT 5 DAYS.NormalThe [facility] Health SystemComment on above:Performed By: #### BLDCX2 ####[facility] Fhbolnmzic4038 [place] [address]Dr. Grace BestPerformed By: #### BLDCX1 ####[facility] Rwyjcayjqy5555[address] [place], [place] [address]Dr. Grace BestCovid-19 PCR (CVDTB)on 81-18-3818ELAC-CoV-2 (COVID-19) RNA LOUISE+probe Ql (Unsp spec)Not detectedNormalNOT DETECTEDThe [facility] Health SystemComment on above:Result Comment: When diagnostic testing is negative, the [...] for this test is supported by the Student Outreach Coordinator of Health and Human Service's declaration that circumstances exist to justify the emergency use of in vitro diagnostics for the detection and/or diagnosis of the virus that causes COVID-19. This EUA will remain in effect for the duration of the COVID-19declaration justifying emergency of IVDs, unless it is terminated or revoked by the FDA (after which the test may no longer be used).Performed By: #### CVDTB ####[facility] Rfkunwxrcn3581 [place], [place] [address]Yq. Yilan ChangER URINE PROFILEon 20-34-4594Sekhfekak Ql (U)NegativeNormal NEGATIVEOhio State University Wexner Medical CenterComment on above:Performed By: #### DEL MCDANIELRO ####[facility] Bewuixpfnv43[address] [place], [place] [id number]. Yilan ChangClarity (U)CLEARNormalCLEARSelect Medical Specialty Hospital - Southeast [place] HospitalComment on above: Performed By: #### DEL MCDANIELRO ####[facility] Acjodscxjn8[address] [place], [place] [id number]. Yilan ChangColor (U)LT. YELLOWNormalYELLOWOhio State University Wexner Medical CenterComment on above:Performed By: #### DEL MCDANIELRO ####[facility] Ivchogmebf22[address] [place], [place] [id number]. Yilan ChangERUAHD A micrscopic examination will be performed if indicated.NormalOhio State University Wexner Medical CenterComment on above:Performed By: #### DEL MCDANIELRO ####[facility] Cllvbvklgr7[address] [place], [place] [id number]. Yilan ChangGlucose Ql (U) 1000 mg/dlAbnormalNEGATIVEOhio State University Wexner Medical CenterComment on above:Performed By: #### DEL MCDANIELRO ####[facility] Bcmntktkkr[address] [place], [place] [address]Dr. Yilan ChangHemoglobin Ql (U)SMALLAbnormalNEGATIVEOhio State University Wexner Medical CenterComment on above:Performed By: #### ERUR, UMICRO ####[facility] Umnfqukgpr8679 [place], [place]Dr. Yilan ChangKetones Ql (U) 40 mg/dlAbnormalNEGATIVEThe [facility] SystemComment on above:Performed By: #### VIOLETA UMICRO ####[facility] Bkdxxylnia2747 [place] [address]Dr. Yilan ChangLEUKOCYTESNegativeNormalNEGATIVEThe [facility] SystemComment on above:Performed By: #### VIOLETA UMICRO ####[facility] Nhtvtnerhy6738 [place] [address]Dr. Yilan ChangNitrite Ql (U)NegativeNormal NEGATIVEThe [facility] Health SystemComment on above:Performed By: #### VIOLETA UMICRO ####[facility] Xfrbxtthtu6690 [place] [address]Dr. Grace ChangpH (U)6.0 [pH]Normal5-9The [facility] SystemComment on above: Performed By: #### VIOLETA UMICRO ####[facility] Pksjivouyr5536 [place] [address]Dr. Yilan ChangProtein (U) [Mass/Vol]30 mg/dLAbnormal NEGATIVE/ TRACEThe [facility] Health SystemComment on above:Performed By: #### VIOLETA UMICRO ####[facility] Wzqzhyidkf4195 [place] [address]Dr. Yilan ChangSPEC GRAVITY1.968Gyvyty6.005-<=1.025The [facility] Comment on above:Performed By: #### VIOLETA UMICRO ####[facility] Vcmgkmoypv[address] [place], [place] [address]Dr. Roxannelan ChangUR MICRO IND INDICATEDNormalThe [facility] Health SystemComment on above:Performed By: #### VIOLETA UMICRO ####[facility] Pafzbpjzxr8135 [place] [address]Dr. Yilan ChangUrobilinogen Qn (U)0.2 {Ancelmo'U}/dLNormal0.2 - 1.0The [facility] SystemComment on above:Performed By: #### ERUR, UMICRO ####[facility] Prkzsjrbrb5302 [place], [place]Dr. Grace Best LACTATE/LACTIC ACIDon 54-13-3647Qvonrfn [Moles/Vol]8.6 mmol/LCritically high 0.4-1.9The [facility] SystemComment on above:Performed By: #### LACT ####[facility] Qupbiiaxxs[address] [place], [place] [address]Dr. Grace BestPOINT OF CARE GLUCOSEon 80-21-8607BFTOPHV>600Critically amhm55-389Wvw [facility] SystemComment on above:Result Comment: Result Not ConfirmedPerformed By: #### POCGLUC ####[facility] Rtpdsabdat024[address] [place], [place] [address]Dr. Grace BestPROF CHEM 8 (BAS METB)on 47-62-8184Oebve gap [Moles/Vol]45.0 mmol/LNormalThe [facility] SystemComment on above:Performed By: #### BMP, CMADM, TSH, BNP ####[facility] Gzyxqpzpgu734[address] [place], [place] [address]Dr. Grace ChangCalcium [Mass/Vol]10.7 mg/dLCritically high8.5-10.1The [facility] SystemComment on above:Performed By: #### BMP, CMADM, TSH, BNP ####[facility] Xfsnspzvxi73[address] [place], [place] [address]Dr. Grace ChangChloride [Moles/Vol]96 mmol/LCritically erj74-758Doe [facility] SystemComment on above:Performed By: #### BMP, CMADM, TSH, BNP ####[facility] Bfwvcdzhaw499[address] [place], [place] [address]Dr. Grace ChangCO2 [Moles/Vol]mmol/LCritically low21.0-32.0The [facility] Comment on above:Performed By: #### BMP, CMADM, TSH, BNP ####[facility] Lzcdgyetrq933[address] [place], [place] [address]Dr. Yilan ChangCreatinine [Mass/Vol]1.57 mg/dLCritically high0.55-1.02The [facility] on above:Performed By: #### BMP, CMADM, TSH, BNP ####[facility] Iwsxgaxigd0849 [place] [address]Dr. Yilan ChangEGFR-AF PLGAEXUC89 mL/min/1.36y7Tlwyzeqvul low>=60The [facility] on above: Performed By: #### BMP, CMADM, TSH, BNP ####[facility] Cpmtrkppgu2019[address] [place], [place] [address]Dr. Yilan ChangEGFR-NON AF AEXPYUQC03 mL/min/1.84w2Aoyrvkwwpr low>=60The [facility] on above:Performed By: #### BMP, CMADM, TSH, BNP ####[facility] Lwdvimjfzc6364[address] [place], [place] [address]Dr. Yilan ChangGlucose [Mass/Vol]1210 mg/dLCritically ppxw99-766Xto [facility] on above:Performed By: #### BMP, CMADM, TSH, BNP ####[facility] Dymcfxqris6665[address] [place], [place] [address]Dr. Yilan ChangPotassium [Moles/Vol]4.8 mmol/LNormal3.5-5.1The [facility] on above:Performed By: #### BMP, CMADM, TSH, BNP ####[facility] Pmymsgiqyh77[address] [place], [place] [address]Dr. Yilan Best Sodium [Moles/Vol]140 mmol/RCwyqvd844-924Vsl [facility] on above: Performed By: #### BMP, CMADM, TSH, BNP ####[facility] Otcldcctew30[address] [place], [place] [address]Dr. Yilan ChangUrea nitrogen [Mass/Vol]45.0 mg/dLCritically high7.0-18.0The [facility] on above:Performed By: #### BMP, CMADM, TSH, BNP ####[facility] Teyojlhsuu611[address] [place], [place] [address]Dr. Yilan ChangUrea nitrogen/Creatinine [Mass ratio] 28.7 mg/mgNoMarietta Osteopathic ClinicComment on above:Performed By: #### BMP, CMADM, TSH, BNP ####[facility] Exzwqtijle2617 [place] [address]Dr. Grace ChangPROTIMEon 29-37-2014WHT Coag (PPP) [Relative time]0.94 {INR}NormalOhio State University Wexner Medical CenterComment on above:Performed By: #### PTT, PT ####[facility] Uqycepwrgr7658 [place] [address]Dr. Roxannecam BestINR GUIDELINESSEE BELOWTriHealthComment on above: Result Comment: DESIRED INR: 2.0 - 3.0 CONDITIONS NOT LISTED BELOW 2.5 - 3.5 FOR PROSTHETIC HEART VALVE REPLACEMENT 2.5 - 3.5 RECURRENT THROMBOSISPerformed By: #### PTT, PT ####[facility] Denpjbxppc9816[address] [place], [place] [address]Dr. Roxannecam BestPT Coag (PPP) [Time]10.0 sNormal9.0-11.6The [facility] SystemComment on above:Performed By: #### PTT, PT ####[facility] Zgjvgvlddk907[address] [place], [place] [address]Dr. Grace BestPTTon 48-19-3296rMPO Coag (Bld) [Time]32.1 vMdshcw34.3-36.2The [facility] Comment on above:Performed By: #### PTT, PT ####[facility] Dgoeghtwkm8699[address] [place], [place] [address]Dr. Grace BestTSHon 73-22-3741NVZ7.373 uIU/mLNormal0.358-3.740Ohio [facility] University Wexner Medical CenterComment on above:Performed By: #### BMP, CMADM, TSH, BNP ####[facility] Cqycqibwwv77[address] [place], [place] [address]Dr. Roxannecam BestURINE MICROSCOPIC ONLYon 05-27-2022 BACTERIANONE SEENNormalNONE SEENOhio State University Wexner Medical CenterComment on above:Performed By: #### ERUR, UMICRO ####[facility] Eyfsnpcnbl0354 [place], [place]Dr. Grace ChangBacteria identified Cx Nom (U)NOT INDICATEDNormalThRiverview Health InstituteComwalter p. reuther psychiatric hospital on above:Performed By: #### VIOLETA UMICRO ####[facility] Gulqwdsnfz9702 [place], [place] [address]Up. Grace ChangCASTNONE SEENNormalNONE SEENOhio State University Wexner Medical CenterComwalter p. reuther psychiatric hospital on above:Performed By: #### VILOETA UMICRO ####[facility] Qpgxwkozfs2301 [place] [id number]. Grace ChangCrystals LM Nom (Urine sed)NONE SEENNormalNONE SEENOhio State University Wexner Medical CenterComwalter p. reuther psychiatric hospital on above:Performed By: #### VIOLETA UMICRO ####[facility] Nvcydfpctz5850 [place] [id number]. Grace ChangEpithelial cells LM Ql (Urine sed)RARENormalNONE SEEN /RARE The [facility] SystemComwalter p. reuther psychiatric hospital on above:Performed By: #### VIOLETA UMICRO ####[facility] Ifgavxrfdy3092 [place] [id number]. Grace ChangMUCOUSNONE SEENNormpaNONE SEENOhio State University Wexner Medical CenterComwalter p. reuther psychiatric hospital on above: Performed By: #### VIOLETA UMICRO ####[facility] Xlwlfgahik5920 [place] [id number]. Grace BestRBCNONE SEENAbnormal0-2The [facility] SystemComwalter p. reuther psychiatric hospital on above:Performed By: #### VIOLETA UMICRO ####[facility] Xjlbjofgli7947 [place] [id number]. Grace ChangWBC0-2Abnormal NONE SEENOhio State University Wexner Medical CenterComwalter p. reuther psychiatric hospital on above:Performed By: #### VIOLETA UMICRO ####[facility] Rdswzdbywg3890 [place] [address]Dr. Grace ChangXR CHEST 1 Von 63-30-5176XY CHEST 1 VNormalOhio State University Wexner Medical CenterXR CHEST 1 VNormalOhio State University Wexner Medical CenterXR PELVIS 1_2 VIEWSon 33-38-8014LG PELVIS 1_2 VIEWSNormalThe [facility] AUTO DIFFon 41-59-9493UFTS #0.0 103/ul Normal0.0-0.1The [facility] SystemComment on above:Performed By: #### CBC ####[facility] Sqfaamrfga228[address] [place], [place] [address]Dr. Roxannelan ChangBasophils/100 WBC (Bld)0.1 %Critically low0.2-2.0The [facility] SystemComment on above:Performed By: #### CBC ####[facility] Unlomifeur385[address] [place], [place] [address]Dr.Roxannelan ChangEO #0.0 103/ul Normal0.0-0.7The [facility] SystemComment on above:Performed By: #### CBC ####[facility] Eovdotmfoh770[address] [place], [place] [address]Dr. Roxannelan ChangEosinophils/100 WBC (Bld)0.3 %Critically low0.9-7.0The [facility] SystemComment on above:Performed By: #### CBC ####[facility] Nojqjzsfgk9937[address] [place], [place] [address]Dr.Grace ChangErythrocyte distribution width (RBC) [Ratio]16.1 %Critically high11.0-15.0The [facility] SystemComment on above:Performed By: #### CBC ####[facility] Xcfopnseaz717[address] [place], [place] [address]Dr.Grace ChangHematocrit (Bld) [Volume fraction]39.0 %Lqivjh61.0-48.0The [facility] SystemComment on above:Performed By: #### CBC ####[facility] Wnedjaccxk476[address] [place], [place] [address]Dr.Grace ChangHemoglobin (Bld) [Mass/Vol]11.7 g/dL Critically low12.0-16.0The [facility] SystemComment on above:Performed By: #### CBC ####[facility] Buzomnrogt9435[address] [place], [place] [address]Dr. Grace ChangIG #0.03 10e3/ulNormal0.00-0.03The [facility] SystemComment on above: Performed By: #### CBC ####[facility] Zwjxrwizet715[address] [place], [place] [address]Dr.Grace BestIG %0.4 %Normal0.0-0.5The [facility] SystemComment on above:Performed By: #### CBC ####[facility] Zopiylgqey257[address] [place], [place] [address]Dr.rGace NasirLYMPH #1.3 103/ulNormal1.2-3.8The [facility] SystemComment on above:Performed By: #### CBC ####[facility] Tzdjkmfjxf5638[address] [place], [place] [address]Dr. Grace BestLymphocytes/100 WBC (Bld)18.7 %Critically low20.5-60.0The [facility] SystemComment on above:Performed By: #### CBC ####[facility] Ivkhjbsesa745[address] [place], [place] [address]Dr.Grace BestMANUAL DIFF REQ NONormalThe [facility] SystemComment on above:Performed By: #### CBC ####[facility] Vdeefooygv414[address] [place], [place] [address]Dr. Grace BestBELLEVUE [facility] (RBC) [Entitic mass]28.7 ypSdmowf27.7-34.0[facility] Comment on above:Performed By: #### CBC ####[facility] Uexteutcfu416[address] [place], [place] [address]Dr.Grace BestHC (RBC) [Mass/Vol]30.0 g/dL Hklsps29.9-35.2The [facility] SystemComment on above:Performed By: #### CBC ####[facility] Jnrwilenhl776[address] [place], [place] [address]Dr. Grace BestV (RBC) [Entitic vol]95.8 sIWwdumt41.0-99.0The [facility] Comment on above:Performed By: #### CBC ####[facility] Lwwattdyyj77[address] [place], [place] [address]Dr.Yilan ChangMONO #0.5 103/ulNormal0.3-0.8 The [facility] SystemComment on above:Performed By: #### CBC ####[facility] Lvtyglwvrp27[address] [place], [place] [address]Dr.Grace Best Monocytes/100 WBC (Bld)7.5 %Normal1.7-12.0The [facility] SystemComment on above: Performed By: #### CBC ####[facility] Disdheadnw408[address] [place], [place] [address]Dr.Grace BestNEUT #5.2 103/ulNormal1.4-6.5The [facility] SystemComment on above:Performed By: #### CBC ####[facility] Iklmwoosop8820[address] [place], [place] [address]Dr.Grace BestNeutrophils/100 WBC (Bld)73.0 %Piydru21.0-75.0The [facility] SystemComment on above:Performed By: #### CBC ####[facility] Gfcntkazlq78399[address] [place], [place] [address]Dr.Grace BestPlatelet mean volume (Bld) [Entitic vol]9.9 fLNormal9.5-13.5 The [facility] SystemComment on above:Performed By: #### CBC ####[facility] Wmzfmtyklo720[address] [place], [place] [address]Dr.Grace YznbmWXH699 103/glOctpod919-116Svw [facility] SystemComment on above:Performed By: #### CBC ####[facility] Lqlyyjvprd214[address] [place], [place] [address]Dr. Grace ChangRBC4.07 106/ulCritically low4.20-5.40The [facility] SystemComment on above:Performed By: #### CBC ####[facility] Mxrasecmxw3716[address] [place], [place] [address]Dr.Grace ChangWBC7.1 103/ulNormal4.0-11.0The [facility] SystemComment on above:Performed By: #### CBC ####[facility] Dvyroznmpv30[address] [place], [place] [address]Dr.Grace BestMODESTO OF CARE GLUCOSEon 60-31-7016Negbbxr [Mass/Vol]370 mg/dLCritically scfg40-063Uso [facility] SystemComwalter p. [facility] hospital on above:Performed By: #### POCGLUC ####[facility] Nfxhcqsodd8122 [place] [address]Dr. Yilan ChangGlucose [Mass/Vol]305 mg/dLCritically kquh01-447Tyo [facility] SystemComment on above: Performed By: #### POCGLUC ####[facility] Bscdtekshc4397 [place] [address]Dr. Roxannelan ChangPROF 14(COMP METB)on 15-65-0251Kgyqfxa [Mass/Vol]2.2 g/dLCritically low3.4-5.0The [facility] SystemComwalter p. reuther psychiatric hospital on above: Performed By: #### CMP ####[facility] Zzromvcizd[address] [place], [place] [address]Dr.Grace ChangAlbumin/Globulin [Mass ratio]0.7 {ratio} NormalThe [facility] SystemComwal[facility] on above:Performed By: #### CMP ####[facility] Kxjcluwfeh77[address] [place], [place] [address]Dr.Roxannelan ChangALP [Catalytic activity/Vol]78 U/HNymwbz43-456Ivw [facility] on above: Performed By: #### CMP ####[facility] Ahegxpykbu6968[address] [place], [place] [address]Dr.Roxannelan ChangALT [Catalytic activity/Vol]49 U/LNormal 14-59The [facility] SystemComwal[facility] on above:Performed By: #### CMP ####[facility] Ydjkfpbttq072[address] [place], [place] [address]Dr.Roxannelan ChangAnion gap [Moles/Vol]9.7 mmol/LNormalThe [facility] SystemComment on above:Performed By: #### CMP ####[facility] Bfyehqzdiu687[address] [place], [place] [address]Dr.Roxannelan ChangAST [Catalytic activity/Vol]47 U/LCritically cmko20-16Pbq [facility] SystemComwal[facility] on above:Performed By: #### CMP ####[facility] [address] [place] [address]Dr.Yilan ChangBilirubin [Mass/Vol]0.4 mg/dLNormal0.2-1.0The [facility] SystemComment on above:Performed By: #### CMP ####[facility] Crqmsmqcxo4901[address] [place], [place] [address]Dr.Yilan ChangCalcium [Mass/Vol]8.6 mg/dLNormal8.5-10.1The [facility] SystemComment on above:Performed By: #### CMP ####[facility] Dhiznsicsh672[address] [place], [place] [address]Dr.Yilan ChangChloride [Moles/Vol]101 mmol/OTjoczv21-613Buu [facility] SystemComwal[facility] on above:Performed By: #### CMP ####[facility] Vejiqluryz922[address] [place], [place] [address]Dr.Yilan ChangCO2 [Moles/Vol]26.3 mmol/EHwospg24.0-32.0The [facility] SystemComment on above:Performed By: #### CMP ####[facility] Qynseeuwfq006[address] [place], [place] [address]Dr.Yilan ChangCreatinine [Mass/Vol]0.54 mg/dLCritically low0.55-1.02The [facility] SystemComwal[facility] on above:Performed By: #### CMP ####[facility] Bjhgtwfxmo679[address] [place], [place] [address]Dr.Yilan ChangEGFR-AF TUNISIAN>60Normal>=60The [facility] SystemComwal[facility] on above:Performed By: #### CMP ####[facility] Keybzkwkgw59399[address] [place], [place] [address]Dr.Yilan ChangEGFR-NON AF TUNISIAN>60Normal>=60The [facility] SystemComment on above:Performed By: #### CMP ####[facility] Jwzpsdmbwz3510[address] [place], [place] [address]Dr. Yilan ChangGlobulin (S) [Mass/Vol]3.0 g/dLNormalThe [facility] SystemComment on above:Performed By: #### CMP ####[facility] Zkelcnoviu[address] [place] [address]Dr.Yilan ChangGlucose [Mass/Vol]284 mg/dLCritically kzek49-448Pqb [facility] SystemComment on above:Performed By: #### CMP ####[facility] Rhjejnvdqz8495[address] [place], [place] [address]Dr. Yilan ChangPotassium [Moles/Vol]4.0 mmol/LNormal3.5-5.1The [facility] Comment on above:Performed By: #### CMP ####[facility] Hxrvpfmyns114[address] [place], [place] [address]Dr.Yilan ChangProtein [Mass/Vol]5.2 g/dL Critically low6.4-8.2The [facility] SystemComment on above:Performed By: #### CMP ####[facility] Ujkkfldxqz168[address] [place], [place] [address]Dr. Yilan ChangSodium [Moles/Vol]133 mmol/LCritically wjl094-240Rkg [facility] SystemComment on above:Performed By: #### CMP ####[facility] Rtdpkszcjg0214[address] [place], [place] [address]Dr.Yilan ChangUrea nitrogen [Mass/Vol]20.0 mg/dLCritically high7.0-18.0The [facility] SystemComment on above:Performed By: #### CMP ####[facility] Ctuqzdvdxy440[address] [place], [place] [address]Dr.Yilan ChangUrea nitrogen/Creatinine [Mass ratio] 37.0 mg/mgNormalThe [facility] SystemComment on above:Performed By: #### CMP ####[facility] Cywkdcrdvd825[address] [place], [place] [address]Dr. Yilan ChangCBC AUTO DIFFon 86-85-2965TCCR #0.0 103/ulNormal0.0-0.1The [facility] SystemComment on above:Performed By: #### CBC ####[facility] Qkkojwwfno387[address] [place], [place] [address]Dr.Yilan ChangBasophils/100 WBC (Bld)0.2 %Normal0.2-2.0The [facility] SystemComment on above:Performed By: #### CBC ####[facility] Euzyzbioyv769[address] [place], [place] [address]Dr.Roxannelan ChangEO #0.0 103/ulNormal0.0-0.7The [facility] SystemComment on above:Performed By: #### CBC ####[facility] Xyequzwdyn9517[address] [place], [place] [address]Dr.Grace ChangEosinophils/100 WBC (Bld)0.0 %Critically low0.9-7.0The [facility] SystemComment on above:Performed By: #### CBC ####[facility] Oitxwwukyw913[address] [place], [place] [address]Dr. Grace ChangErythrocyte distribution width (RBC) [Ratio]16.4 %Critically high 11.0-15.0The [facility] SystemComment on above:Performed By: #### CBC ####[facility] Wbrrbjwbov0044[address] [place], [place] [address]Dr. Grace ChangHematocrit (Bld) [Volume fraction]35.6 %Critically low36.0-48.0The [facility] SystemComment on above:Performed By: #### CBC ####[facility] Jjqnmvoljn732[address] [place], [place] [address]Dr.Grace ChangHemoglobin (Bld) [Mass/Vol]11.0 g/dLCritically low12.0-16.0The [facility] SystemComment on above:Performed By: #### CBC ####[facility] Kcczhrabwv096[address] [place], [place] [address]Dr.Grace ChangIG #0.03 10e3/ulNormal0.00-0.03The [facility] SystemComment on above:Performed By: #### CBC ####[facility] Iupvooiumk8975[address] [place], [place] [address]Dr.Grace ChangIG %0.4 %Normal 0.0-0.5The [facility] SystemComment on above:Performed By: #### CBC ####[facility] Uqydhspcet916[address] [place], [place] [address]Dr.Grace BestLYMPH #0.9 103/ulCritically low1.2-3.8The [facility] SystemComment on above:Performed By: #### CBC ####[facility] Ehgugxwecl046[address] [place], [place] [address]Dr.Grace BestLymphocytes/100 WBC (Bld)11.5 %Critically low20.5-60.0 The [facility] SystemComment on above:Performed By: #### CBC ####[facility] Debhwyyuvs4916[address] [place], [place] [address]Dr.Grace BestMANUAL DIFF REQNONormalThe [facility] SystemComment on above:Performed By: #### CBC ####[facility] Bspklgzbeu6477[address] [place], [place] [address]Dr. Grace BestMCH (RBC) [Entitic mass]29.4 mnMbubzp33.7-34.0The [facility] Comment on above:Performed By: #### CBC ####[facility] Wmrlsimgmj010[address] [place], [place] [address]Dr.Grace BestMCHC (RBC) [Mass/Vol]30.9 g/dL Dfhkbi63.9-35.2The [facility] SystemComment on above:Performed By: #### CBC ####[facility] Wsrauhmwnl5845[address] [place], [place] [address]Dr. Grace BestMCV (RBC) [Entitic vol]95.2 pNAsppce70.0-99.0The [facility] Comment on above:Performed By: #### CBC ####[facility] Adxchykddr7427[address] [place], [place] [address]Dr.Grace BestMONO #0.6 103/ulNormal0.3-0.8 The [facility] SystemComment on above:Performed By: #### CBC ####[facility] Lulwelzkmf777[address] [place], [place] [address]Dr.Grace Best Monocytes/100 WBC (Bld)7.0 %Normal1.7-12.0The [facility] SystemComment on above: Performed By: #### CBC ####[facility] Fcnvenxijb[address] [place] [address]Dr.Grace BestNEUT #6.5 103/ulNormal1.4-6.5The [facility] SystemComment on above:Performed By: #### CBC ####[facility] Gdrpmqlbgn89[address] [place] [address]Dr.Grace BestNeutrophils/100 WBC (Bld)80.9 %Critically high43.0-75.0The [facility] SystemComment on above: Performed By: #### CBC ####[facility] Hrjkdralfu38299[address] [place], [place] [address]Dr.Grace BestPlatelet mean volume (Bld) [Entitic vol] 9.9 fLNormal9.5-13.5The [facility] SystemComment on above:Performed By: #### CBC ####[facility] Fckoyrnxkl845[address] [place], [place] [address]Dr. Grace HnamaOUV894 103/auNbvxyb178-916Thi [facility] SystemComment on above: Performed By: #### CBC ####[facility] Zfgvaaeixr044[address] [place], [place] [address]Dr.Grace ChangRBC3.74 106/ulCritically low4.20-5.40The [facility] SystemComment on above:Performed By: #### CBC ####[facility] Efmwvsnxho399[address] [place], [place] [address]Dr.Grace BestWBC8.0 103/ul Normal4.0-11.0The [facility] SystemComment on above:Performed By: #### CBC ####[facility] Icxyqoeywb28119[address] [place], [place] [address]Dr. Grace ChangCULTURE URINEon 04-58-7936UVPOWBJ URINETriHealth Comment on above:Performed By: #### URCX ####[facility] Wbhenwxnvn4932[address] [place], [place] [address]Dr. Grace ChangPOINT OF CARE GLUCOSEon 22-68-7804Uvijjhc [Mass/Vol]214 mg/dLCritically ynaq74-773PndOhio State University [facility] Comment on above:Performed By: #### POCGLUC ####[facility] Qkdazxppwo[address] [place] [address]Dr. Yilan ChangGlucose [Mass/Vol]163 mg/dL Critically hgzf22-632Apn [facility] SystemComment on above:Performed By: #### POCGLUC ####[facility] Amzbszkepi[address] [place] [address]Dr. Yilan ChangGlucose [Mass/Vol]370 mg/dLCritically cxxx61-825Wsy [facility] SystemComment on above:Performed By: #### POCGLUC ####[facility] Rdwjngouhs045[address] [place], [place] [address]Dr. Yilan ChangGlucose [Mass/Vol]434 mg/dLCritically idyn54-206Vcv [facility] SystemComment on above: Performed By: #### POCGLUC ####[facility] Sardraksyq3030[address] [place], [place] [address]Dr. Yilan ChangPROF 14(COMP METB)on 89-20-1390Efzllfu [Mass/Vol]2.6 g/dLCritically low3.4-5.0The [facility] SystemComment on above: Performed By: #### CMP ####[facility] Dqamhmrbtt1830[address] [place], [place] [address]Dr.Yilan ChangAlbumin/Globulin [Mass ratio]0.8 {ratio} NormalThe [facility] on above:Performed By: #### CMP ####[facility] Jkajnucwtt907[address] [place], [place] [address]Dr.Yilan ChangALP [Catalytic activity/Vol]75 U/JSpvjcb69-731Ywp [facility] SystemComment on above: Performed By: #### CMP ####[facility] Nlbklpelcx2924[address] [place], [place] [address]Dr.Yilan ChangALT [Catalytic activity/Vol]37 U/LNormal 14-59The [facility] SystemComwalter p. [facility] on above:Performed By: #### CMP ####[facility] Viaihpwugn582[address] [place], [place] [address]Dr.Yilan ChangAnion gap [Moles/Vol]15.7 mmol/LNormalThe [facility] SystemComment on above:Performed By: #### CMP ####[facility] Qzxmjflrfe30[address] [place] [address]Dr.Yilan ChangAST [Catalytic activity/Vol]28 U/UEqrfiz24-89Cck [facility] SystemComment on above:Performed By: #### CMP ####[facility] Emzjroymku0[address] [place] [address]Dr.Yilan ChangBilirubin [Mass/Vol]0.6 mg/dLNormal0.2-1.0The [facility] SystemComment on above:Performed By: #### CMP ####[facility] Ubzlowucyg4944[address] [place], [place] [address]Dr.Yilan ChangCalcium [Mass/Vol]8.5 mg/dLNormal8.5-10.1The [facility] SystemComment on above:Performed By: #### CMP ####[facility] Juyleobzqs4495[address] [place], [place] [address]Dr.Yilan ChangChloride [Moles/Vol]99 mmol/SJdyxsf78-208Rxr [facility] SystemComment on above:Performed By: #### CMP ####[facility] Xnrddgtmgn4744[address] [place], [place] [address]Dr.Yilan ChangCO2 [Moles/Vol]21.9 mmol/EWvaslk04.0-32.0The [facility] SystemComwalter p. [facility] on above:Performed By: #### CMP ####[facility] Uormtlffsg155[address] [place], [place] [address]Dr.Yilan ChangCreatinine [Mass/Vol]0.58 mg/dLNormal0.55-1.02The [facility] SystemComwalter p. [facility] on above: Performed By: #### CMP ####[facility] Ahwrderxhs412[address] [place], [place] [address]Dr.Yilan ChangEGFR-AF TUNISIAN>60Normal>=60The [facility] SystemComwalter p. [facility] on above:Performed By: #### CMP ####[facility] Cohayfjnnw0155[address] [place], [place] [address]Dr.Yilan ChangEGFR-NON AF TUNISIAN>60Normal>=60The [facility] SystemComment on above:Performed By: #### CMP ####[facility] Vzcjpralmv[address] [place] [address]Dr. Yilan ChangGlobulin (S) [Mass/Vol]3.3 g/dLNoalThe [facility] SystemComment on above:Performed By: #### CMP ####[facility] Oucwcnosuq24[address] [place] [address]Dr.Yilan ChangGlucose [Mass/Vol]457 mg/dLCritically bvir52-012Fjd [facility] SystemComment on above:Performed By: #### CMP ####[facility] Emuefwmjah957[address] [place], [place] [address]Dr. Yilan ChangPotassium [Moles/Vol]3.6 mmol/LNormal3.5-5.1The [facility] Comment on above:Performed By: #### CMP ####[facility] Vhntqitinm1901[address] [place], [place] [address]Dr.Yilan ChangProtein [Mass/Vol]5.9 g/dL Critically low6.4-8.2The [facility] SystemComment on above:Performed By: #### CMP ####[facility] Dltpledhng152[address] [place], [place] [address]Dr. Yilan ChangSodium [Moles/Vol]133 mmol/LCritically tol998-303Mso [facility] SystemComment on above:Performed By: #### CMP ####[facility] Hydakmgkey5426[address] [place], [place] [address]Dr.Yilan ChangUrea nitrogen [Mass/Vol]24.0 mg/dLCritically high7.0-18.0The [facility] SystemComment on above:Performed By: #### CMP ####[facility] Psphiedgem230[address] [place], [place] [address]Dr.Yilan ChangUrea nitrogen/Creatinine [Mass ratio] 41.4 mg/mgNoalThRiverview Health InstituteComment on above:Performed By: #### CMP ####[facility] Tfbfcggzxd354[address] [place], [place] [address]Dr. Yilan ChangAMMONIAon 19-90-5733Kkhznqf (P) [Moles/Vol]19 umol/KTukmwo08-61Nso [facility] SystemComment on above:Performed By: #### AMM ####[facility] Qqlvlejwsj99[address] [place], [place] [address]Dr.Grace ChangBNPon 89-95-7854Zfozkwlqoub peptide B (Bld) [Mass/Vol]359.0 pg/mLNormal<=900.0The [facility] SystemComment on above:Performed By: #### BNP, CMP ####[facility] Ukvekjiszn285[address] [place], [place] [address]Dr. Grace BestCBC AUTO DIFFon 61-89-9535VTIZ #0.0 103/ulNormal0.0-0.1The [facility] SystemComment on above:Performed By: #### CBC ####[facility] Shprqeuyeh313[address] [place], [place] [address]Dr.Grace ChangBasophils/100 WBC (Bld)0.1 %Critically low0.2-2.0The [facility] on above:Performed By: #### CBC ####[facility] Xkztgflcmx544[address] [place], [place] [address]Dr. Roxannelan ChangEO #0.0 103/ulNormal0.0-0.7The [facility] SystemComwalter p. [facility] on above: Performed By: #### CBC ####[facility] Smdgkuajiz097[address] [place], [place] [address]Dr.Grace ChangEosinophils/100 WBC (Bld)0.1 %Critically low0.9-7.0The [facility] SystemComment on above:Performed By: #### CBC ####[facility] Sdfgxtdfka968[address] [place], [place] [address]Dr. Grace ChangErythrocyte distribution width (RBC) [Ratio]16.2 %Critically high 11.0-15.0The [facility] SystemComment on above:Performed By: #### CBC ####[facility] Uccbyygtsg525[address] [place], [place] [address]Dr. Grace ChangHematocrit (Bld) [Volume fraction]32.6 %Critically low36.0-48.0The [facility] SystemComment on above:Performed By: #### CBC ####[facility] Jensgnmkdh30[address] [place] [address]Dr.Roxannecam ChangHemoglobin (Bld) [Mass/Vol]10.5 g/dLCritically low12.0-16.0The [facility] SystemComment on above:Performed By: #### CBC ####[facility] Kqxmrcnfzl87[address] [place], [place] [address]Dr.Roxannecam NasirIG #0.04 10e3/ulCritically high0.00-0.03 The [facility] SystemComment on above:Performed By: #### CBC ####[facility] Ouaxvenauf390[address] [place], [place] [address]Dr.Grace BestIG % 0.4 %Normal0.0-0.5The [facility] SystemComment on above:Performed By: #### CBC ####[facility] Enwhxbdcws905[address] [place], [place] [address]Dr. Roxannecam ChangLYMPH #1.1 103/ulCritically low1.2-3.8The [facility] SystemComment on above:Performed By: #### CBC ####[facility] Qhkdplmauz0020[address] [place], [place] [address]Dr.Grace BestLymphocytes/100 WBC (Bld)12.7 % Critically low20.5-60.0The [facility] SystemComment on above:Performed By: #### CBC ####[facility] Efepsrfcbl759[address] [place], [place] [address]Dr. Grace BestMANUAL DIFF REQNONormalThe [facility] HospitalComment on above: Performed By: #### CBC ####[facility] Rsaywaahaw739[address] [place], [place] [address]Dr.Grace BestH (RBC) [Entitic mass]29.2 pgNormal 26.7-34.0The [facility] HospitalComment on above:Performed By: #### CBC ####[facility] Oamicsewkc727[address] [place], [place] [address]Dr. Grace BestMC (RBC) [Mass/Vol]32.2 g/kEDzaerb48.9-35.2The [facility] Comment on above:Performed By: #### CBC ####[facility] Eedxhawooo344[address] [place], [place] [address]Dr.Grace BestMCV (RBC) [Entitic vol]90.6 fL Ymenrz97.0-99.0The [facility] SystemComment on above:Performed By: #### CBC ####[facility] Ofqoifbbpe699[address] [place], [place] [address]Dr. Grace BestMONO #0.5 103/ulNormal0.3-0.8The [facility] HospitalComment on above: Performed By: #### CBC ####[facility] Rrxtvlevvs196[address] [place], [place] [address]Dr.Grace BestMonocytes/100 WBC (Bld)5.6 %Normal 1.7-12.0The [facility] HospitalComment on above:Performed By: #### CBC ####[facility] Nrhjzbwaew9468[address] [place], [place] [address]Dr. Grace BestNEUT #7.2 103/ulCritically high1.4-6.5The [facility] HospitalComment on above:Performed By: #### CBC ####[facility] Lsgeqatdvy784[address] [place], [place] [address]Dr.Grace BestNeutrophils/100 WBC (Bld)81.1 % Critically high43.0-75.0The [facility] HospitalComment on above:Performed By: #### CBC ####[facility] Gneoswvoaz624[address] [place], [place] [address]Dr. Grace BestPlatelet mean volume (Bld) [Entitic vol]9.3 fLCritically low9.5-13.5 The [facility] SystemComment on above:Performed By: #### CBC ####[facility] Kxtgxaawyz8350[address] [place], [place] [address]Dr.Grace JejgyIUR800 103/waBisjrc286-397Apw [facility] HospitalComment on above:Performed By: #### CBC ####[facility] Hiekknxbfb416[address] [place], [place] [address]Dr. Grace BestRBC3.60 106/ulCritically low4.20-5.40The [facility] SystemComment on above:Performed By: #### CBC ####[facility] Suuhguxfoy[address] [place] [address]Dr.Grace BestWBC8.9 103/ulNormal4.0-11.0The [facility] SystemComment on above:Performed By: #### CBC ####[facility] Oqgnhlznhk7977[address] [place], [place] [address]Dr.Grace BestCRPon 03-81-0654CLD9.7 mg/dLNormal<=1.0The [facility] SystemComment on above:Performed By: #### CRP ####[facility] Asozxltntl537[address] [place], [place] [address]Dr.Grace BestMRI BRAIN WO CONon 58-73-4218AXY BRAIN WO CONNormalOhio State University Wexner Medical CenterPOINT OF CARE GLUCOSEon 47-29-9884Tvfptxg [Mass/Vol]324 mg/dL Critically kybr04-884Bkd [facility] SystemComment on above:Performed By: #### POCGLUC ####[facility] Hglnxdlbnq416[address] [place], [place] [address]Dr. Grace BestGlucose [Mass/Vol]243 mg/dLCritically cynz76-519Cfa [facility] SystemComment on above:Performed By: #### POCGLUC ####[facility] Psokxktpts675[address] [place], [place] [address]Dr. Grace BestPROF 14(COMP METB)on 15-17-8279Tdbouso [Mass/Vol]2.3 g/dLCritically low3.4-5.0The [facility] SystemComment on above:Performed By: #### BNP, CMP ####[facility] Hddbisdupb167[address] [place], [place] [address]Dr. Grace Best Albumin/Globulin [Mass ratio]0.8 {ratio}NormalThe [facility] SystemComment on above:Performed By: #### BNP, CMP ####[facility] Awbxzdgbzf910[address] [place], [place] [address]Dr. Grace BestALP [Catalytic activity/Vol]73 U/L Qphaoa22-988Lkq [facility] SystemComment on above:Performed By: #### BNP, CMP ####[facility] Dgpkimevgg177[address] [place], [place] [address]Dr. Yilan ChangALT [Catalytic activity/Vol]13 U/LCritically opt57-32Xof [facility] SystemComment on above:Performed By: #### BNP, CMP ####[facility] Kipcptejia337[address] [place], [place] [address]Dr. Yilan ChangAnion gap [Moles/Vol]11.6 mmol/LNormalThe [facility] SystemComment on above:Performed By: #### BNP, CMP ####[facility] Cbaumckrnb7832[address] [place], [place] [address]Dr. Yilan ChangAST [Catalytic activity/Vol]8 U/LCritically zmz72-65Pxp [facility] SystemComment on above:Performed By: #### BNP, CMP ####[facility] Nfwywmwilt8933[address] [place], [place] [address]Dr. Yilan Best Bilirubin [Mass/Vol]0.7 mg/dLNormal0.2-1.0The [facility] SystemComment on above: Performed By: #### BNP, CMP ####[facility] Mcwcqokcuh3280[address] [place], [place] [address]Dr. Yilan ChangCalcium [Mass/Vol]8.5 mg/dLNormal 8.5-10.1The [facility] SystemComment on above:Performed By: #### BNP, CMP ####[facility] Qnmsebllew513[address] [place], [place] [address]Dr. Yilan ChangChloride [Moles/Vol]104 mmol/WZgriyz05-450Hlb [facility] Comment on above:Performed By: #### BNP, CMP ####[facility] Jasdtefeun7915[address] [place], [place] [address]Dr. Yilan ChangCO2 [Moles/Vol]20.5 mmol/LCritically low21.0-32.0The [facility] SystemComment on above:Performed By: #### BNP, CMP ####[facility] Oelyosjxpy8[address] [place], [place] [address]Dr. Yilan ChangCreatinine [Mass/Vol]0.55 mg/dLNormal 0.55-1.02The [facility] SystemComment on above:Performed By: #### BNP, CMP ####[facility] Sgzlxbrmya1833[address] [place], [place] [address]Dr. Yilan ChangEGFR-AF TUNISIAN>60Normal>=60The [facility] SystemComment on above: Performed By: #### BNP, CMP ####[facility] Jtiedsojhk069[address] [place], [place] [address]Dr. Yilan ChangEGFR-NON AF TUNISIAN>60Normal>=60The [facility] SystemComment on above:Performed By: #### BNP, CMP ####[facility] Mhuosifihk937[address] [place], [place] [address]Dr. Yilan Best Globulin (S) [Mass/Vol]2.8 g/dLNormalThRiverview Health InstituteComwalter p. [facility] on above: Performed By: #### BNP, CMP ####[facility] Vkjianccjx079[address] [place], [place] [address]Dr. Yilan ChangGlucose [Mass/Vol]194 mg/dLCritically ltvh69-249Xjz [facility] SystemComwal[facility] on above:Performed By: #### BNP, CMP ####[facility] Irwqjdgnid186[address] [place], [place] [address]Dr. Yilan ChangPotassium [Moles/Vol]3.1 mmol/LCritically low3.5-5.1The [facility] SystemComwalter p[facility] on above:Performed By: #### BNP, CMP ####[facility] Kjfzjnkxby7[address] [place], [place] [address]Dr. Yilan ChangProtein [Mass/Vol]5.1 g/dLCritically low6.4-8.2The [facility] SystemComment on above: Performed By: #### BNP, CMP ####[facility] Rqxrpnijnt00[address] [place], [place] [address]Dr. Yilan ChangSodium [Moles/Vol]133 mmol/LCritically abd705-894Hee [facility] SystemComment on above:Performed By: #### BNP, CMP ####[facility] Hsplymtzxi045[address] [place] [address]Dr. Grace ChangUrea nitrogen [Mass/Vol]30.0 mg/dLCritically high7.0-18.0The [facility] SystemComwalter p. [facility] on above:Performed By: #### BNP, CMP ####[facility] Akdhsjnpgv6827[address] [place], [place] [address]Dr. Roxannelan ChangUrea nitrogen/Creatinine [Mass ratio]54.5 mg/mgNormalThe [facility] SystemComment on above:Performed By: #### BNP, CMP ####[facility] Yfekmltmwl6260[address] [place], [place] [address]Dr. Grace ChangSED RATE WESTERGRENon 49-39-5429PQH RATE22 mm/hrNormal<=30The [facility] SystemComment on above:Performed By: #### SEDR ####[facility] Pyqpiwqmfl[address] [place], [place] [address]Dr. Grace BestVIT B12 AND FOLATEon 28-78-3650Ibnmczldu (Vitamin B12) [Mass/Vol]387.0 pg/tSRzusfn773.0-986.0The [facility] on above: Performed By: #### B12FOL ####[facility] Pddomdzmte[address] [place], [place] [address]Dr. Grace BestFOLATE9.70 ng/mLNormal8.60-58.90The [facility] on above:Performed By: #### B12FOL ####[facility] Qcumgnupdf[address] [place], [place] [address]Dr. Grace ChangBNPon 68-41-3931Muqtnfnuuok peptide B (Bld) [Mass/Vol]289.0 pg/mLNormal<=900.0The [facility] SystemComwalter p. [facility] on above:Performed By: #### BNP, CMP ####[facility] Oqepcazaue[address] [place], [place] [address]Dr. Roxannecam NasirCBC AUTO DIFFon [id number] #0.0 103/ulNormal0.0-0.1The [facility] Health SystemComment on above:Performed By: #### CBC ####[facility] Wgbmfhmgds50[address] [place], [place] [address]Dr.Yilan ChangBasophils/100 WBC (Bld)0.1 %Critically low0.2-2.0The [facility] Health SystemComment on above:Performed By: #### CBC ####[facility] Yimbogdnui8028[address] [place], [place] [address]Dr. Yilan ChangEO #0.0 103/ulNormal0.0-0.7The [facility] SystemComment on above: Performed By: #### CBC ####[facility] Gppqvdkrxd816[address] [place], [place] [address]Dr.Yilan ChangEosinophils/100 WBC (Bld)0.0 %Critically low0.9-7.0The [facility] SystemComment on above:Performed By: #### CBC ####[facility] Htsrwoptso[address] [place], [place] [address]Dr. Yilan ChangErythrocyte distribution width (RBC) [Ratio]16.7 %Critically high 11.0-15.0The [facility] Health SystemComment on above:Performed By: #### CBC ####[facility] Djoldgqhhv1505[address] [place], [place] [address]Dr. Yilan ChangHematocrit (Bld) [Volume fraction]34.9 %Critically low36.0-48.0The [facility] SystemComment on above:Performed By: #### CBC ####[facility] Yyokjemtja[address] [place], [place] [address]Dr.Yilan ChangHemoglobin (Bld) [Mass/Vol]11.3 g/dLCritically low12.0-16.0The [facility] SystemComment on above:Performed By: #### CBC ####[facility] Ozmtvejkhi607[address] [place], [place] [address]Dr.Yilan ChangIG #0.07 10e3/ulCritically high0.00-0.03 The [facility] Health SystemComment on above:Performed By: #### CBC ####[facility] Emyffpqedf310[address] [place], [place] [address]Dr.Yilan ChangIG % 0.7 %Critically high0.0-0.5The [facility] SystemComment on above:Performed By: #### CBC ####[facility] Ialoiislmm824[address] [place], [place] [address]Dr.Grace KothariMPH #0.7 103/ulCritically low1.2-3.8The [facility] Comment on above:Performed By: #### CBC ####[facility] Qcxofmskxw386[address] [place], [place] [address]Dr.Grace Kotharimphocytes/100 WBC (Bld)6.6 % Critically low20.5-60.0The [facility] SystemComment on above:Performed By: #### CBC ####[facility] Pzmdihanvk439[address] [place], [place] [address]Dr. Grace NasirMANUAL DIFF REQNONormalThe [facility] SystemComment on above: Performed By: #### CBC ####[facility] Rkiyumhzxh0264[address] [place], [place] [address]Dr.Roxannecam NasirBELLEVUE [facility] (RBC) [Entitic mass]29.2 pgNormal 26.7-34.0[facility] Medical CenterComment on above:Performed By: #### CBC ####[facility] Wtjzuwchye311[address] [place], [place] [address]Dr. Roxannecam NasirHC (RBC) [Mass/Vol]32.4 g/sKQqebrf34.9-35.2[facility] Comment on above:Performed By: #### CBC ####[facility] Mwmazkrdcf814[address] [place], [place] [address]Dr.Grace BestV (RBC) [Entitic vol]90.2 fL Ibjmsz68.0-99.0[facility] CenterComment on above:Performed By: #### CBC ####[facility] Vmisyxirwr7713[address] [place], [place] [address]Dr. Roxannecam NasirCAROL ANNO #0.5 103/ulNormal0.3-0.8The [facility] SystemComment on above: Performed By: #### CBC ####[facility] Pydnpkznfr447[address] [place], [place] [address]Dr.Grace ChangMonocytes/100 WBC (Bld)4.5 %Normal 1.7-12.0The [facility] SystemComment on above:Performed By: #### CBC ####[facility] G[address]scykwas[address] [place] [address]Dr. Roxannelan ChangNEUT #9.5 103/ulCritically high1.4-6.5The [facility] SystemComment on above:Performed By: #### CBC ####[facility] Vswvdcfnyi23[address] [place] [address]Dr.Roxannelan ChangNeutrophils/100 WBC (Bld)88.1 % Critically high43.0-75.0The [facility] SystemComment on above:Performed By: #### CBC ####[facility] Ntryoungck466[address] [place], [place] [address]Dr. Grace ChangPlatelet mean volume (Bld) [Entitic vol]9.6 fLNormal9.5-13.5The [facility] SystemComment on above:Performed By: #### CBC ####[facility] Mgwvxvqouj614[address] [place], [place] [address]Dr.Yicam LybbfLPY270 103/ul Ewzxrc329-626Jrq [facility] SystemComment on above:Performed By: #### CBC ####[facility] Hqqcvhilre389[address] [place], [place] [address]Dr. Grace ChangRBC3.87 106/ulCritically low4.20-5.40The [facility] SystemComment on above:Performed By: #### CBC ####[facility] Fdcoqwaqcc466[address] [place], [place] [address]Dr.Roxannelan XbcvlJTJ47.7 103/ulNormal4.0-11.0The [facility] SystemComment on above:Performed By: #### CBC ####[facility] Obqlnyqwzr316[address] [place], [place] [address]Dr.Roxannelan ChangOCC BLD IMMUNOASSAYon 85-52-5384OVKLXH BLOODNegativeNormalNEGATIVEThe [facility] Comment on above:Performed By: #### OBIA ####[facility] Wtnjghqcam[address] [place] [address]Dr. Grace BestPOINT OF CARE GLUCOSEon 30-55-4228Afslsrz [Mass/Vol]362 mg/dLCritically tqtp76-408KrzOhio State University We[facility]ner Medical Center Comment on above:Performed By: #### POCGLUC ####[facility] Dofgnmmeid9[address] [place] [address]Dr. Yilan ChangGlucose [Mass/Vol]523 mg/dL Critically vjyn82-495Tjq [facility] SystemComment on above:Result Comment: Previously ConfirmedPerformed By: #### POCGLUC ####[facility] Tkbdlcihnj0435[address] [place], [place] [address]Dr. Yilan ChangGlucose [Mass/Vol]374 mg/dLCritically qpyj31-121RnaOhio State University Wexner Medical CenterComment on above: Performed By: #### POCGLUC ####[facility] Zolvonrrkd805[address] [place], [place] [address]Dr. Grace ChangPROF 14(COMP METB)on 02-70-7294Ycpiend [Mass/Vol]3.0 g/dLCritically low3.4-5.0The [facility] SystemComment on above: Performed By: #### BNP, CMP ####[facility] Pvefhkicva5860[address] [place], [place] [address]Dr. Grace ChangAlbumin/Globulin [Mass ratio]0.9 {ratio}NormalOhio State University Wexner Medical CenterComment on above:Performed By: #### BNP, CMP ####[facility] Xmjyljxrcm7970[address] [place], [place] [address]Dr. Roxannelan ChangALP [Catalytic activity/Vol]98 U/OMdwori41-274Cgw [facility] Comment on above:Performed By: #### BNP, CMP ####[facility] Zgqvqoesei445[address] [place], [place] [address]Dr. Yilan ChangALT [Catalytic activity/Vol]15 U/RRiorcd02-87Abb [facility] SystemComment on above:Performed By: #### BNP, CMP ####[facility] Ylwzkgvmgt645[address] [place], [place] [address]Dr. Grace ChangAnion gap [Moles/Vol]26.0 mmol/LNormalThe [facility] SystemComment on above:Performed By: #### BNP, CMP ####[facility] Lkiklubyuo406[address] [place], [place] [address]Dr. Yilan ChangAST [Catalytic activity/Vol]8 U/LCritically wfm50-52Wlq [facility] SystemComment on above: Performed By: #### BNP, CMP ####[facility] Jfkmsmgorj085[address] [place], [place] [address]Dr. Yilan ChangBilirubin [Mass/Vol]1.2 mg/dLCritically high0.2-1.0The [facility] SystemComment on above:Performed By: #### BNP, CMP ####[facility] Qhgsqspyjf744[address] [place], [place] [address]Dr. Yilan ChangCalcium [Mass/Vol]9.3 mg/dLNormal8.5-10.1The [facility] SystemComment on above:Performed By: #### BNP, CMP ####[facility] Iqoqgflwgo758[address] [place], [place] [address]Dr. Yilan ChangChloride [Moles/Vol]100 mmol/L Ziupgu94-001Kxd [facility] SystemComment on above:Performed By: #### BNP, CMP ####[facility] Kjlqstbcnq7495[address] [place], [place] [address]Dr. Yilan ChangCO2 [Moles/Vol]12.4 mmol/LCritically low21.0-32.0The [facility] SystemComment on above:Performed By: #### BNP, CMP ####[facility] Qkgspedtfu705[address] [place], [place] [address]Dr. Yilan ChangCreatinine [Mass/Vol]0.89 mg/dLNormal0.55-1.02The [facility] SystemComment on above: Performed By: #### BNP, CMP ####[facility] Oejgjrhclo87399[address] [place], [place] [address]Dr. Yilan ChangEGFR-AF TUNISIAN>60Normal>=60The [facility] SystemComment on above:Performed By: #### BNP, CMP ####[facility] Qohxgrwycj280[address] [place], [place] [address]Dr. Yilan ChangEGFR- NON AF TUNISIAN>60Normal>=60The [facility] SystemComment on above:Performed By: #### BNP, CMP ####[facility] Ewacqohrag2495[address] [place], [place] [address]Dr. Yilan ChangGlobulin (S) [Mass/Vol]3.4 g/dLNormLouis Stokes Cleveland VA Medical CenterComment on above:Performed By: #### BNP, CMP ####[facility] Klohrlpmpg276[address] [place], [place] [address]Dr. Yilan ChangGlucose [Mass/Vol]544 mg/dLCritically zkqh77-404Utz [facility] SystemComwal[facility] on above: Performed By: #### BNP, CMP ####[facility] Qayevtkdra048[address] [place], [place] [address]Dr. Yilan ChangPotassium [Moles/Vol]4.4 mmol/LNormal 3.5-5.1The [facility] SystemComment on above:Performed By: #### BNP, CMP ####[facility] Dqqxcyyxyc4827[address] [place], [place] [address]Dr. Yilan ChangProtein [Mass/Vol]6.4 g/dLNormal6.4-8.2The [facility] SystemComment on above:Performed By: #### BNP, CMP ####[facility] Ornldduljd117[address] [place], [place] [address]Dr. Yilan ChangSodium [Moles/Vol]134 mmol/L Critically cin563-821Arp [facility] SystemComment on above:Performed By: #### BNP, CMP ####[facility] Szlkfcjcvl617[address] [place], [place] [address]Dr. Yilan ChangUrea nitrogen [Mass/Vol]26.0 mg/dLCritically high7.0-18.0The [facility] SystemComment on above:Performed By: #### BNP, CMP ####[facility] Opwcgprqcv160[address] [place], [place] [address]Dr. Yilan ChangUrea nitrogen/Creatinine [Mass ratio]29.2 mg/mgNoMarietta Osteopathic ClinicComment on above:Performed By: #### BNP, CMP ####[facility] Nttglxszpd25[address] [place] [address]Dr. Grace BestACETONE SERUMon 96-79-9157BDOXREG NegativeNormalNEGATIVEThe [facility] SystemComment on above:Performed By: #### ACETON ####[facility] Gbmgztvzbq58[address] [place] [address]Dr. Grace NasirBNPon 72-09-2315Yuchpjfrfwx peptide B (Bld) [Mass/Vol]169.0 pg/mLNormal<=900.0The [facility] SystemComment on above:Performed By: #### CMP, BNP, CMADM ####[facility] Meedypeong[address] [place], [place] [address]Dr. Grace NasirCARDIAC ALY 3-6on 38-52-8354FW [Catalytic activity/Vol]23 U/LCritically xgg89-911Pex [facility] SystemComment on above:Performed By: #### CMREP ####[facility] Lzcymlcvss522[address] [place], [place] [address]Dr. Grace Yoon.MB [Mass/Vol]ng/mLNormal<=3.60The [facility] Comment on above:Performed By: #### CMREP ####[facility] Zuoqhrzdix7580[address] [place], [place] [address]Dr. Grace NasirHSTROP8.7 pg/mLNormal4.0-51.3 The [facility] SystemComment on above:Result Comment: CUT-OFF POINTS HAVE BEEN ESTABLISHED BASED ON THE FOURTH UNIVERSAL DEFINITIONS OF MYOCARDIALINFARCTION. THE UPPER REFERENCE LIMIT (URL) OF TROPONIN, DEFINED THE 99TH PERCENTILE OFcT nI DISTRIBUTION IN A REFERENCE POPULATION, HAS BEEN CONFIRMED THE DECISION THRESHOLDFOR [place] DIAGNOSIS.Performed By: #### CMREP ####[facility] Xtrhewiypb8950[address] [place], [place] [address]Dr. Grace Yoon [Catalytic activity/Vol]24 U/LCritically jrb24-143Xee [facility] SystemComment on above: Performed By: #### CMREP ####[facility] Kpkheruqxo355[address] [place], [place] [address]Dr. Grace Yoon.MB [Mass/Vol]ng/mLNormal<=3.60The [facility] SystemComment on above:Performed By: #### CMREP ####[facility] Jwdpspylbj96[address] [place] [address]Dr. Grace CisnerosTROP8.8 pg/mLNormal4.0-51.3The [facility] SystemComment on above:Result Comment: CUT-OFF POINTS HAVE BEEN ESTABLISHED BASED ON THE FOURTH UNIVERSAL DEFINITIONS OF MY OCARDIALINFARCTION. THE UPPER REFERENCE LIMIT (URL) OF TROPONIN, DEFINED THE 99TH PERCENTILE OFcTnI DISTRIBUTION IN A REFERENCE POPULATION, HAS BEEN CONFIRMED THE DECISION THRESHOLDFOR VT DIAGNOSIS.Performed By: #### CMREP ####[facility] Eyhurjdkjt[address] [place] [address]. Roxannecam Hall ALY ADMITon 95-99-0327SC [Catalytic activity/Vol]32 U/L Riryov52-816Ydb [facility] SystemComment on above:Performed By: #### CMP, BNP, CMADM ####[facility] Bmddustnmm367[address] [place], [place] [address]Dr. Grace NasirCK.MB [Mass/Vol]ng/mLNormal<=3.60The [facility] Comment on above:Performed By: #### CMP, BNP, CMADM ####[facility] Nwdocreyfu5575[address] [place], [place] [address]Dr. Roxannecam BestGLORIATROP7.3 pg/mLNormal4.0-51.3TGrant HospitalComment on above:Result Comment: CUT-OFF POINTS HAVE BEEN ESTABLISHED BASED ON THE FOURTH UNIVERSAL DEFINITIONS OF MY OCARDIALINFARCTION. THE UPPER REFERENCE LIMIT (URL) OF TROPONIN, DEFINED THE 99TH PERCENTILE OFcTnI DISTRIBUTION IN A REFERENCE POPULATION, HAS BEEN CONFIRMED THE DECISION THRESHOLDFOR [place] DIAGNOSIS.Performed By: #### CMP, BNP, CMADM ####[facility] Zkyoqyhhpx385[address] [place], [place] [address]Dr. Grace TrmbaLWM14 ng/mLNormal9-82The [facility] SystemComment on above: Performed By: #### CMP, BNP, CMADM ####[facility] Keeiszmlhm1820[address] [place], [place] [address]Dr. Grace BestCBC W MANUAL DIFFon 05-08-2022 ANISOCYTOSISSLIGHTNormalThRiverview Health InstituteComment on above:Performed By: #### CBCMAN ####[facility] Sqvylkjprg4868[address] [place], [place] [address]Dr. Yilan ChangATYPICAL LYMPH #NormalThe Troup HospitalComment on above: Performed By: #### CBCMAN ####[facility] Thwnwzuiza4926[address] [place], [place] [address]Dr. Yilan ChangATYPICAL LYMPH %NormalThe Troup HospitalComment on above:Performed By: #### CBCMAN ####[facility] Wbenftddit201[address] [place], [place] [address]Dr. Yilan ChangBAND #Normal 0.0-0.3The [facility] SystemComment on above:Performed By: #### CBCMAN ####[facility] Wyuhcndnov1940[address] [place], [place] [address]Dr. Yilan ChangBAND %Normal0-5The [facility] SystemComment on above:Performed By: #### CBCMAN ####[facility] Smjhnqdfad425[address] [place], [place] [address]Dr. Yilan ChangBASOM #0.00 103/ulNormal0.00-0.10The [facility] Comment on above:Performed By: #### CBCMAN ####[facility] Dnprujdoyw088[address] [place], [place] [address]Dr. Yilan ChangBASOM %0.0 %Critically low 0.2-2.0The [facility] HospitalComment on above:Performed By: #### CBCMAN ####[facility] Rpncaohekp3744[address] [place], [place] [address]Dr. Yilan ChangBLAST #NormalThe Troup HospitalComment on above:Performed By: #### CBCMAN ####[facility] Gnqxwofbzo3760[address] [place], [place] [address]Dr. Yilan ChangBLAST %NormalOhio State University Wexner Medical CenterComment on above:Performed By: #### CBCMAN ####[facility] Hbkjfsbnof705[address] [place], [place] [address]Dr. Yilan ChangCORRECTED WBCNormal4.0-11.0The [facility] SystemComment on above:Performed By: #### CBCMAN ####[facility] Arcbeuyhmh[address] [place] [address]Dr. Grace ChangEOS #0.00 103/ulNormal0.00-0.70The [facility] SystemComment on above:Performed By: #### CBCMAN ####[facility] Hytdnyscxu112[address] [place], [place] [address]Dr. Grace ChangEOS% 0.0 %Critically low0.9-7.0The [facility] SystemComment on above:Performed By: #### CBCMAN ####[facility] Yckxxejaff090[address] [place], [place] [address]Dr. Grace RurhxJWX54.1 %Uuikzb25.0-48.0The [facility] SystemComment on above:Performed By: #### CBCMAN ####[facility] Aqzjnetjus5945[address] [place], [place] [address]Dr. Grace CtbjrZYR54.1 g/ptNqvftn69.0-16.0The [facility] SystemComment on above:Performed By: #### CBCMAN ####[facility] Dbwluoallw5426[address] [place], [place] [address]Dr. Grace ChangLYMPHM #1.09 103/ulCritically low1.20-3.80The [facility] SystemComment on above:Performed By: #### CBCMAN ####[facility] Jnacczrxdl6825[address] [place], [place] [address]Dr. Grace ChangLYMPHM%11.0 %Critically low20.5-60.0The [facility] Comment on above:Performed By: #### CBCMAN ####[facility] Wnzezmilvx510[address] [place], [place] [address]Dr. Grace HmrgrCIB95.0 vwZrtogj55.7-34.0The [facility] SystemComment on above:Performed By: #### CBCMAN ####[facility] Sicxaxaafi6065[address] [place], [place] [address]Dr. Roxannelan ChangMCHC 34.3 g/pfHpimor83.9-35.2The [facility] SystemComment on above:Performed By: #### CBCARIAN ####[facility] Gfovngnqja87[address] [place] [address]Dr. Yilan IiybmYTD58.4 mROkgsny18.0-99.0The [facility] SystemComment on above:Performed By: #### CBCARIAN ####[facility] Ansjvvrqpy18[address] [place] [address]Dr. Yilan ChangMETAMYELOCYTE #NormalThe Troup HospitalComment on above:Performed By: #### CBCMAN ####[facility] Puzaulhtyw5[address] [place] [address]Dr. Yilan ChangMETAMYELOCYTE %NormalThe [facility] SystemComment on above:Performed By: #### CBCARIAN ####[facility] Sqmnryzydh190[address] [place], [place] [address]Dr. Yilan ChangMONOM#0.40 103/ulNormal0.30-0.80The [facility] SystemComment on above:Performed By: #### CBCARIAN ####[facility] Iluhlhcxoh4824[address] [place], [place] [address]Dr. Yilan ChangMONOM%4.0 %Normal1.7-12.0The [facility] SystemComment on above:Performed By: #### CBCARIAN ####[facility] Vrqpphxkos13[address] [place] [address]Dr. Yilan ChangMPV8.8 fL Critically low9.5-13.5The [facility] SystemComment on above:Performed By: #### CBCARIAN ####[facility] Naosmtepit[address] [place], [place] [address]Dr. Yilan ChangMYELOCYTE #NormalThe [facility] SystemComment on above: Performed By: #### CBCMAN ####[facility] Iocmtknpmr[address] [place], [place] [address]Dr. Yilan ChangMYELOCYTE %NormalThe [facility] Comment on above:Performed By: #### CBCARIAN ####[facility] Qmlfkbwpne28[address] [place], [place] [address]Dr. Yilan ChangNRBCNormalThe Troup HospitalComment on above:Performed By: #### CBCARIAN ####[facility] Ngaelkbgml25[address] [place] [address]Dr. Grace BestPLT402 103/ul Bierhi230-221Tdn [facility] SystemComment on above:Performed By: #### CBCARIAN ####[facility] Voyimoamim8587 [place] [address]Dr. Grace BestRBC4.87 106/ulNormal4.20-5.40The [facility] SystemComment on above: Performed By: #### CBCARIAN ####[facility] Svvzqnnkix7[address] [place] [address]Dr. Grace BestRDW16.2 %Critically high11.0-15.0The [facility] SystemComment on above:Performed By: #### CBCARIAN ####[facility] Xnomzycklx[address] [place], [place] [address]Dr. Grace NasirSEG # 8.41 103/ulCritically high1.40-6.50The [facility] SystemComment on above: Performed By: #### CBCARIAN ####[facility] Hdylnhukop85[address] [place] [address]Dr. Grace BestSEG %85.0 %Critically high43.0-75.0The [facility] SystemComwalter p. [facility]uther psychiatric hospital on above:Performed By: #### CBCMAN ####[facility] Awepipvvxf0470 [place] [address]Dr. Grace NasirWBC 9.9 103/ulNormal4.0-11.0The [facility] SystemComment on above:Performed By: #### CBCMAN ####[facility] Vpudxyyqum[address] [place], [place] [address]Dr. Grace BestCT HEAD WO CONon 88-33-6870OX HEAD WO CONNormalOhio State University Wexner Medical CenterCULT81ST MEDICAL GROUP BLOODon 78-68-3170Hhaiweimzkk examination of blood, culture Culture Observations: NO GROWTH AT 5 DAYS.NormalThe [facility] SystemComment on above:Performed By: #### BLDCX2 ####[facility] Highnhvpma89[address] [place], [place] [address]Dr. Grace ChangMicroscopic examination of blood, cultureCulture Observations: NO GROWTH AT 5 DAYS.NormalThe [facility] SystemComment on above:Performed By: #### BLDCX1 ####[facility] Fmeestljyj6567 [place] [address]Dr. Grace ChangMicroscopic examination of blood, cultureCulture Observations: NO GROWTH AT 5 DAYS.NormalThe [facility] HospitalComment on above:Performed By: #### BLDCX1 ####[facility] Pjhlaaioyp22[address] [place] [address]Dr. Grace BestCovid-19 PCR (CVDTBH)on 02-34-6035DEXD-CoV-2 (COVID-19) RNA LOUISE+probe Ql (Unsp spec)Not detectedNormalNOT DETECTEDThe [facility] Comment on above:Result Comment: When diagnostic testing is negative, the possibility of a false negative should be considered inthe context of a patient's recent exposures and the presence of clinical signs and sympt omsconsistent with SARS-CoV-2.This test is not yet approved or cleared by the [place] FDA. When there are no FDA-approved or cleared tests available, and other criteria are met, FDA can make tests available under an emergency access mechanism called an Emergency Use Authorization (EUA). The EUA for this test is supported by the Student Outreach Coordinator of Health and Human Service's declaration that circumstances exist to justify the emergency use of in vitro diagnostics for the detection and/or diagnosis of the virus that causes COVID-19. This EUA will remain in effect for the duration of the COVID-19declaration justifying emergency of IVDs, unless it is terminated or revoked by the FDA (after which the test may no longer be used).Performed By: #### CVDTBH ####[facility] Zrgdgjqocj10[address] [place] [address]Dr. Grace BestD-DIMERon 27-85-2990O-DIMER0.38 mg/L FEUNormal<=0.59The [facility] SystemComment on above: Performed By: #### DDIM ####[facility] Ndilbpnhco27[address] [place] [address]Dr. Grace BestD-DIMER COMMENTSE [facility] HospitalComwal[facility] p[facility] on above:Result Comment: Increases in D-Dimer concentration observed with thromboembolic events [...] DIC, trauma, post-surgery, diabetes, thrombolytic or anticoagulant the rapy, stress, and generalized hospitalization.Performed By: #### DDIM ####[facility] Lxwaijzpte9[address] [place], [place] [address]Dr. Grace BestDRUG SCREEN RAPID (URINE)on 33-47-6981CXYNjpnongoLxkglxKXJHYVJMJoz Bellevue HospitalComwal[facility] on above:Performed By: #### UMICRO, ERUR, DRUGRPD ####[facility] Fhfwkldmvm644[address] [place], [place] [address]Dr. Grace BestBARNegativeNormalNEGATIVEOhio State University Wexner Medical CenterComment on above: Performed By: #### UMICRO, ERUR, DRUGRPD ####[facility] Yzsdizvrvb[address] [place], [place] [address]Dr. Grace BestBUPNegativeNormalNEGATIVEOhio State University Wexner Medical CenterComwalter p. [facility] psychiatric hospital on above:Performed By: #### UMICRO, ERUR, DRUGRPD ####[facility] Onyrluvnkh325[address] [place], [place] [address]Dr. Grace BestBZONegativeNormalNEGATIVEOhio State University Wexner Medical CenterComment on above: Performed By: #### UMICRO, ERUR, DRUGRPD ####[facility] Odtfwpchxj9[address] [place], [place] [address]Dr. Grace BestCOCNegativeNormalNEGATIVEOhio State University Wexner Medical CenterComwalter p. [facility] psychiatric hospital on above:Performed By: #### UMICRO, ERUR, DRUGRPD ####[facility] Blcymgzymz[address] [place], [place] [address]Dr. Grace BestCUT-OFFSSEE White HospitalComment on above:Result Comment: AMP (Amphetamine): 500ng/mL, BAR (Barbituates): 200 ng/mL, BZO (Benzodiazepines): 150 ng/mL, BUP (Buprenorphine): 10 ng/mL, MATTHEW (Cocaine): 150 ng/mL, mAMP (Methamphetamine): 500 ng/mL, MTD (Methadone): 200 ng/mL, OPI (Opiates): 100 ng/mL, OXY (Oxycodone): 100 ng/mL, PCP (Phencyclidine): 25 ng/mL, PPX (Propoxyphene): 300 ng/mL, THC (Cannabinoids): 50 ng/mL, TCA (Trycyclic Antidepressants): 300 ng/mLPerformed By: #### VIOLETA GR DRUGRPD ####[facility] Qvezfzbiqr119[address] [place], [place] [address]Dr. Grace BestDRUG CUT HEADERDRUG CLASS TEST SYSTEM CUT-OFF CONCENTRATIONS ARE FOLLOWS:Normal [facility] Medical CenterComment on above:Performed By: #### VIOLETA GR DRUGRPD ####[facility] Xlzehiejtq54[address] [place], [place] [address]Dr. Grace ChangmAMPNegativeNormalNEGATIVEOhio State University Wexner Medical CenterComment on above: Performed By: #### VIOLETA GR DRUGRPD ####[facility] Vzmkgkfytk80[address] [place], [place] [address]Dr. Grace BestMTDNegativeNormalNEGATIVEOhio State University Wexner Medical CenterComment on above:Performed By: #### VIOLETA GR DRUGRPD ####[facility] Ukuyrlqvrq215[address] [place], [place] [address]Dr. Grace ChangOPINegativeNormalNEGATIVEOhio State University Wexner Medical CenterComment on above: Performed By: #### TEVIN GRR DRUGRPD ####[facility] Qpywvgzvzf[address] [place], [place] [address]Dr. Grace ChangOXYNegativeNormalNEGATIVEOhio State University Wexner Medical CenterComment on above:Performed By: #### TEVIN GRR DRUGRPD ####[facility] Qjiihnngtt13[address] [place], [place] [address]Dr. Yilan ChangPCPNegativeNormalNEGATIVEOhio State University Wexner Medical CenterComment on above: Performed By: #### VIOLETA GR DRUGRPD ####[facility] Estekqltcp47[address] [place], [place] [address]Dr. Yilan ChangPPXNegativeNormalNEGATIVEOhio State University Wexner Medical CenterComment on above:Performed By: #### VIOLETA GR DRUGRPD ####[facility] Nznjhrousv0124[address] [place], [place] [address]Dr. Yilan ChangTCANegativeNormalNEGATIVEOhio State University Wexner Medical CenterComment on above: Performed By: #### VIOLETA GR DRUGRPD ####[facility] Ugobhyledz880[address] [place], [place] [address]Dr. Yilan ChangTHCNegativeNormalNEGATIVEOhio State University Wexner Medical CenterComment on above:Performed By: #### VIOLETA GR DRUGRPD ####[facility] Xeeoarjfnr587[address] [place], [place] [address]Dr. Yilan ChangER URINE PROFILEon 75-14-0768Qjtenwuns Ql (U)NegativeNormalNEGATIVE [facility] Medical CenterComment on above:Performed By: #### VIOLETA GR DRUGRPD ####[facility] Tcjluvpxxg255[address] [place], [place] [address]Dr. Yilan ChangClarity (U)CLEARNormalCLEARSelect Medical Specialty Hospital - Southeast [place] HospitalComment on above: Performed By: #### VIOLETA GR DRUGRPD ####[facility] Vfynouyoba429[address] [place], [place] [address]Dr. Yilan ChangColor (U)LT. YELLOWNormal YELLOWSelect Medical Specialty Hospital - Southeast Ohio HospitalComment on above:Performed By: #### VIOLETA GR DRUGRPD ####[facility] Ebehlegqzd5965[address] [place], [place] [address]Dr. Yilan ChangERUAHDA micrscopic examination will be performed if indicated.NormalThe Troup HospitalComment on above:Performed By: #### UMICRO, ERUR, DRUGRPD ####[facility] Kfnmsgmylw[address] [place] [address]Dr. Yilan ChangGlucose Ql (U)>1000AbnormalNEGATIVEThe Troup HospitalComment on above:Performed By: #### UMICRO, ERUR, DRUGRPD ####[facility] Ywzyluotzq4[address] [place] [address]Dr. Yilan Best Hemoglobin Ql (U)TRACE-INTACTAbnormalNEGATIVESelect Medical Specialty Hospital - Southeast [place] HospitalComment on above:Performed By: #### UMICRO, ERUR, DRUGRPD ####[facility] Ytsslydrpp90[address] [place] [address]Dr. Yilan ChangKetones Ql (U) TRACEAbnormalNEGATIVESelect Medical Specialty Hospital - Southeast [place] HospitalComment on above:Performed By: #### UMICFRANCESCO ERUR, DRUGRPD ####[facility] Xltdwtnbtw55[address] [place] [address]Dr. Grace BestLEUKOCYTESMODERATEAbnormalNEGATIVESelect Medical Specialty Hospital - [facility] [place] HospitalComment on above:Performed By: #### UMICFRANCESCO ERUR, DRUGRPD ####[facility] Uobdczsbst26[address] [place] [address]Dr. Yilan ChangNitrite Ql (U)NegativeNormalNEGATIVEOhio State University Wexner Medical CenterComment on above:Performed By: #### UMICFRANCESCO ERUR, DRUGRPD ####[facility] Beegtxtdka96[address] [place] [address]Dr. Yicam ChangpH (U)8.5 [pH] Normal5-9The [facility] SystemComment on above:Performed By: #### UMICRO, ERUR, DRUGRPD ####[facility] Hndvxwqalq9[address] [place] [address]Dr. Yilan ChangSPEC GRAVITY1.805Vnnglp4.005-<=1.025The [facility] Comment on above:Performed By: #### UMICRO, ERUR, DRUGRPD ####[facility] Kojjiggfwc14[address] [place] [address]Dr. Yilan ChangUA PROTEIN NegativeNormalNEGATIVE/ TRACEThe [facility] SystemComment on above:Performed By: #### VIOLETA GR DRUGRPD ####[facility] Ymvmpxwsrr0650[address] [place], [place] [address]Dr. Grace BestUR MICRO INDINDICATEDNoMarietta Osteopathic ClinicComment on above:Performed By: #### VIOLETA GR DRUGRPD ####[facility] Dowlpivhij2301[address] [place], [place] [address]Dr. Yicam Best Urobilinogen Qn (U)0.2 {Ancelmo'U}/dLNormal0.2 - 1.0The [facility] SystemComwalter p. [facility] on above:Performed By: #### VIOLETA GR DRUGRPD ####[facility] Ugzqfpwjjp529[address] [place], [place] [address]Dr. Grace BestINFLUENZA A AND B AGon 81-91-0215YVEQAUVGRNPHWTriHealth Bethesda North HospitalComwalter p. re[facility] psychiatric hospital on above:Result Comment: Negative for Flu A protein angiten. Infection due to Flu A cannot be ruled out. FluA angiten in the sample may be below the detection limit of the test.Performed By: #### INFLUAB ####[facility] Bilqmczvbm7064[address] [place], [place] [address]Dr. Yicam ChangINFLUBNEGHSEE [facility] on above:Result Comment: Negative for Flu B protein antigen. Infection due to Flu B cannot be ruled out. FluB antigen in the sample may be below the detection limit of the test.Performed By: #### INFLUAB ####[facility] Havzlzfyle934[address] [place], [place] [address]Dr. Yilan NasirINFLUENZA A AGNegativeNormalNEGATIVE SEE COMMENTThe [facility] SystemComwalter p. [facility] on above:Performed By: #### INFLUAB ####[facility] Grmcdcvsmp0065[address] [place], [place] [address]Dr. Yilan ChangINFLUENZA B AG NegativeNormalNEGATIVE SEE COMMENTThe [facility] on above: Performed By: #### INFLUAB ####[facility] Drvfylaswo685[address] [place], [place] [address]Dr. Yilan ChangLACTATE/LACTIC ACIDon 52-14-0034Duomzpj [Moles/Vol]1.9 mmol/LNormal0.4-1.9The [facility] SystemComment on above: Performed By: #### LACT ####[facility] Zxvtxjmrpr408[address] [place], [place] [address]Dr. Yilan ChangLactate [Moles/Vol]1.0 mmol/LNormal 0.4-1.9The [facility] SystemComment on above:Performed By: #### LACT ####[facility] Yshiykvxbl2020[address] [place], [place] [address]Dr. Yilan ChangLactate [Moles/Vol]5.3 mmol/LCritically high0.4-1.9The [facility] SystemComment on above:Performed By: #### LACT ####[facility] Irkrgzyrmu620[address] [place], [place] [address]Dr. Grace ChangPH VENOUS BLOODon 12-88-5926CHO7 GXLUFD51.9 mmHgCritically low40.0-52.0The [facility] SystemComment on above:Performed By: #### PHVEN ####[facility] Dsrslwqmwz254[address] [place], [place] [address]Dr. Yilan ChangpH VENOUS7.359 Normal7.330-7.430The [facility] SystemComment on above:Performed By: #### PHVEN ####[facility] Cmqiclbxjh325[address] [place], [place] [address]Dr. Grace [facility] OF CARE GLUCOSEon 11-06-2678Prdrnwh [Mass/Vol]268 mg/dL Critically vjce70-070Kzr [facility] SystemComment on above:Result Comment: Will Repeat TestPerformed By: #### POCGLUC ####[facility] Elseoprbxe275[address] [place], [place] [address]Dr. Yilan ChangGlucose [Mass/Vol]493 mg/dL Critically wdkf34-599Kuk [facility] SystemComment on above:Performed By: #### POCGLUC ####[facility] Zorcimexnx1300[address] [place], [place] [address]Dr. Yilan ChangGlucose [Mass/Vol]356 mg/dLCritically kkix45-660Ztq [facility] SystemComment on above:Performed By: #### POCGLUC ####[facility] Zzastmzlik8[address] [place] [address]Dr. Grace ChangPROF 14(COMP METB)on 54-57-3143Mfakhtd [Mass/Vol]3.8 g/dLNormal3.4-5.0The [facility] Comment on above:Performed By: #### CMP, BNP, CMADM ####[facility] Knnycdolcw9993 [place] [address]Dr. Grace Best Albumin/Globulin [Mass ratio]0.9 {ratio}NormalThe [facility] SystemComment on above:Performed By: #### CMP, BNP, CMADM ####[facility] Hubaazspuv295[address] [place], [place] [address]Dr. Grace ChangALP [Catalytic activity/Vol] 119 U/LCritically dhxo29-893Mro [facility] SystemComment on above:Performed By: #### CMP, BNP, CMADM ####[facility] Kvyiugzpxv14[address] [place] [address]Dr. Grace ChangALT [Catalytic activity/Vol]18 U/L Bwoakx88-76Qhu [facility] SystemComment on above:Performed By: #### CMP, BNP, CMADM ####[facility] Xypkeohtjq5922 [place] [address]Dr. Grace NasirAnion gap [Moles/Vol]19.0 mmol/LNormalThe [facility] Comment on above:Performed By: #### CMP, BNP, CMADM ####[facility] Mmblmlqhra6164 [place] [address]Dr. Roxannelan ChangAST [Catalytic activity/Vol]13 U/LCritically ajc02-07Czo [facility] SystemComment on above: Performed By: #### CMP, BNP, CMADM ####[facility] Vrueqdjnxy4892 [place] [address]Dr. Grace ChangBilirubin [Mass/Vol]0.8 mg/dL Normal0.2-1.0The [facility] SystemComment on above:Performed By: #### CMP, BNP, CMADM ####[facility] Vpklyrslbq6663 [place] [address]Dr. Yilan ChangCalcium [Mass/Vol]9.9 mg/dLNormal8.5-10.1The [facility] SystemComment on above:Performed By: #### CMP, BNP, CMADM ####[facility] Fllheckcsq97[address] [place] [address]Dr. Yilan Best Chloride [Moles/Vol]97 mmol/LCritically nzj89-718Uze [facility] SystemComwalter p[facility] on above:Performed By: #### CMP, BNP, CMADM ####[facility] Yifvovsijl7633[address] [place], [place] [address]Dr. Yilan ChangCO2 [Moles/Vol]18.7 mmol/L Critically low21.0-32.0The [facility] on above:Performed By: #### CMP, BNP, CMADM ####[facility] Fipdbagpbe084[address] [place], [place] [address]Dr. Yilan ChangCreatinine [Mass/Vol]0.85 mg/dLNormal0.55-1.02The [facility] on above:Performed By: #### CMP, BNP, CMADM ####[facility] Zicjmyulnk295[address] [place], [place] [address]Dr. Yilan ChangEGFR-AF TUNISIAN>60Normal>=60The [facility] on above: Performed By: #### CMP, BNP, CMADM ####[facility] Yblnppdkkn3545[address] [place], [place] [address]Dr. Yilan ChangEGFR-NON AF TUNISIAN>60Normal>=60 The [facility] SystemComment on above:Performed By: #### CMP, BNP, CMADM ####[facility] Ryrbhfzxim005[address] [place], [place] [address]Dr. Yilan ChangGlobulin (S) [Mass/Vol]4.1 g/dLNormalThe [facility] SystemComwalter [facility] on above:Performed By: #### CMP, BNP, CMADM ####[facility] Xxfrxlgojv86[address] [place] [address]Dr. Yilan ChangGlucose [Mass/Vol]322 mg/dL Critically uvxf84-257Isy [facility] SystemComment on above:Performed By: #### CMP, BNP, CMADM ####[facility] Txciycgajs2775[address] [place], [place] [address]Dr. Yilan ChangPotassium [Moles/Vol]3.7 mmol/LNormal3.5-5.1The [facility] SystemComment on above:Performed By: #### CMP, BNP, CMADM ####[facility] Lssqthyfgp638[address] [place], [place] [address]Dr. Yilan ChangProtein [Mass/Vol]7.9 g/dLNormal6.4-8.2The [facility] SystemComwalter [facility] on above:Performed By: #### CMP, BNP, CMADM ####[facility] Dmxcfzvmok893[address] [place], [place] [address]Dr. Yilan ChangSodium [Moles/Vol]131 mmol/L Critically hpv277-277Lhb [facility] SystemComment on above:Performed By: #### CMP, BNP, CMADM ####[facility] Wqvsrmqnii2823[address] [place], [place] [address]Dr. Yilan ChangUrea nitrogen [Mass/Vol]22.0 mg/dLCritically high 7.0-18.0The [facility] on above:Performed By: #### CMP, BNP, CMADM ####[facility] Cjrsueudwk975[address] [place], [place] [address]Dr. Yilan ChangUrea nitrogen/Creatinine [Mass ratio]25.9 mg/mgNormSouthview Medical Centere [facility] on above:Performed By: #### CMP, BNP, CMADM ####[facility] Lrsksmdfan927[address] [place], [place] [address]Dr. Yilan Best PROTIMEon 22-61-2257UZC Coag (PPP) [Relative time]{INR}NormalThe [facility] SystemComwalter p[facility] on above:Performed By: #### PTT, PT ####[facility] Szjpdrbzog005[address] [place], [place] [address]Dr. Yilan ChangINR GUIDELINES SEE BELOWNormSouthview Medical Centere [facility] SystemComment on above:Result Comment: DESIRED INR: 2.0 - 3.0 CONDITIONS NOT LISTED BELOW 2.5 - 3.5 FOR PROSTHETIC HEART VALVE REPLACEMENT 2.5 - 3.5 RECURRENT THROMBOSISPerformed By: #### PTT, PT ####[facility] Gmmbxyybpa39[address] [place] [address]Dr. Grace BestPT Coag (PPP) [Time]9.3 sNormal9.0-11.6The [facility] SystemComment on above:Performed By: #### PTT, PT ####[facility] Oscllzcdmr839[address] [place], [place] [address]Dr. Grace BestPTTon 39-00-5151dNWV Coag (Bld) [Time]29.6 aIepkcw03.3-36.2The [facility] SystemComment on above:Performed By: #### PTT, PT ####[facility] Fofirivuax81959[address] [place], [place] [address]Dr. Grace BestTSHon 14-64-7486JLS9.894 uIU/mLNormal0.358-3.740The [facility] SystemComment on above:Performed By: #### TSH ####[facility] Oowkkbejbc2475[address] [place], [place] [address]Dr.Grace Garcia MICROSCOPIC ONLYon 22-24-5434UPIZBBKIR CRYSTALSRARENormalOhio State University Wexner Medical Center Comment on above:Performed By: #### VIOLETA GR DRUGRPD ####[facility] Pmpdbaglwh1717[address] [place], [place] [address]Dr. Grace BestBACTERIATRACE AbnormalNONE SEENThe [facility] SystemComment on above:Performed By: #### VIOLETA GR DRUGRPD ####[facility] Frralyjtlb413[address] [place], [place] [address]Dr. Grace Laniercteria identified Cx Nom (U)INDICATED NormalThe [facility] SystemComment on above:Performed By: #### TEVIN GRR, DRUGRPD ####[facility] Ijjokrkgbd905[address] [place], [place] [address]Dr. Grace BestCA OX CRYSTALSRARENormalOhio State University Wexner Medical CenterComment on above:Performed By: #### TEVIN GRR, DRUGRPD ####[facility] Awryucgujk65[address] [place] [address]Dr. Grace NasirCASTNONE SEEN NormalNONE SEENOhio State University Wexner Medical CenterComwalter p. reuther psychiatric hospital on above:Performed By: #### TEVIN GRR, DRUGRPD ####[facility] Hthpfaijrw2243 [place] [address]Dr. Grace NasirCrystals LM Nom (Urine sed)SEENAbnormalNONE SEENOhio State University Wexner Medical CenterComwalter p. reuther psychiatric hospital on above:Performed By: #### TEVIN GRR, DRUGRPD ####[facility] Tlnrhzjzkz758[address] [place], [place] [address]Dr. Grace ChangEpithelial cells LM Ql (Urine sed)NONE SEENNormalNONE SEEN /RAREThe [facility] SystemComwalter p. reuther psychiatric hospital on above:Performed By: #### TEVIN GRR, DRUGRPD ####[facility] Otqspgmbqo945[address] [place], [place] [address]Dr. Grace NasirMUCOUSNONE SEENNormalNONE SEENOhio State University Wexner Medical CenterComwalter p. reuther psychiatric hospital on above: Performed By: #### TEVIN GRR, DRUGRPD ####[facility] Yfycfswgqf72[address] [place], [place] [address]Dr. Grace VaeobROT0-9Nijnan8-5Zyh [facility] SystemComwalter p[facility] on above:Performed By: #### TEVIN GRR, DRUGRPD ####[facility] Kdfdakxnlu7590[address] [place], [place] [address]Dr. Grace Best TRIPLE PHOS CRYSTALSFEWNormalThRiverview Health InstituteComment on above:Performed By: #### SIMÓN ERUR, DRUGRPD ####[facility] Cranygrooz0730[address] [place], [place] [address]Dr. Grace BestWBC5-10AbnormalNONE SEENOhio State University Wexner Medical CenterComment on above:Performed By: #### SIMÓN ERUR, DRUGRPD ####[facility] Nvacedixbw4312[address] [place], [place] [address]Dr. Roxannecam ChangXR CHEST 1 Von 09-73-4671NA CHEST 1 VNormalThe [facility] AUTO DIFFon 02-91-0562MCJY #0.0 103/ulNormal0.0-0.1The [facility] SystemComment on above: Performed By: #### CBC ####[facility] Xusmpuqpdj921[address] [place], [place] [address]Dr.Grace ChangBasophils/100 WBC (Bld)0.4 %Normal 0.2-2.0The [facility] SystemComment on above:Performed By: #### CBC ####[facility] Gliqqbrswu5427[address] [place], [place] [address]Dr.Yilan ChangEO # 0.1 103/ulNormal0.0-0.7The [facility] SystemComment on above:Performed By: #### CBC ####[facility] Kktdwvzhbg649[address] [place], [place] [address]Dr. Grace ChangEosinophils/100 WBC (Bld)1.0 %Normal0.9-7.0The [facility] Comment on above:Performed By: #### CBC ####[facility] Lrvuarxqxu113[address] [place], [place] [address]Dr.Grace ChangErythrocyte distribution width (RBC) [Ratio]14.1 %Aytdxh80.0-15.0The [facility] SystemComment on above: Performed By: #### CBC ####[facility] Yksafjbqfk394[address] [place], [place] [address]Dr.Grace ChangHematocrit (Bld) [Volume fraction]31.2 % Critically low36.0-48.0The [facility] SystemComment on above:Performed By: #### CBC ####[facility] Dakgblvrtz1464[address] [place], [place] [address]Dr. Grace ChangHemoglobin (Bld) [Mass/Vol]10.5 g/dLCritically low12.0-16.0The [facility] SystemComment on above:Performed By: #### CBC ####[facility] Yajivunouq04[address] [place], [place] [address]Dr.Grace BestIG #0.01 10e3/ulNormal0.00-0.03The [facility] SystemComment on above:Performed By: #### CBC ####[facility] Coiznzstbk489[address] [place], [place] [address]Dr. Grace BestIG %0.2 %Normal0.0-0.5The [facility] SystemComment on above:Performed By: #### CBC ####[facility] Oxvxkfauxc3088[address] [place], [place] [address]Dr.Grace ChangLYMPH #1.8 103/ulNormal1.2-3.8The [facility] Comment on above:Performed By: #### CBC ####[facility] Cpmjxhqwxk634[address] [place], [place] [address]Dr.Grace BestLymphocytes/100 WBC (Bld)33.5 %Azisqg55.5-60.0The [facility] SystemComment on above:Performed By: #### CBC ####[facility] Ywcuhcwjmo8530[address] [place], [place] [address]Dr. Grace BestMANUAL DIFF REQNONormalThe [facility] SystemComment on above: Performed By: #### CBC ####[facility] Wumosqgpmo115[address] [place], [place] [address]Dr.Grace BestBELLEVUE [facility] (RBC) [Entitic mass]29.1 pgNormal 26.7-34.0The [facility] SystemComment on above:Performed By: #### CBC ####[facility] Ywmtuftukg6628[address] [place], [place] [address]Dr. Grace BestST. LAWRENCE [facility] (RBC) [Mass/Vol]33.7 g/gMJckswh03.9-35.2The [facility] Comment on above:Performed By: #### CBC ####[facility] Tqgziwypwj326[address] [place], [place] [address]Dr.Grace BestV (RBC) [Entitic vol]86.4 fL Kgkgqd89.0-99.0The [facility] SystemComment on above:Performed By: #### CBC ####[facility] Qhbydcifoi9814 [place] [address]Dr. Grace BestMONO #0.3 103/ulNormal0.3-0.8The [facility] SystemComment on above: Performed By: #### CBC ####[facility] Tdocojpmbv2186 [place] [address]Dr.Yilan ChangMonocytes/100 WBC (Bld)6.3 %Normal 1.7-12.0The [facility] SystemComment on above:Performed By: #### CBC ####[facility] Tbnesrivgo6568[address] [place], [place] [address]Dr. Yilan ChangNEUT #3.1 103/ulNormal1.4-6.5The [facility] SystemComment on above: Performed By: #### CBC ####[facility] Gyvyvisodw518[address] [place], [place] [address]Dr.Yilan ChangNeutrophils/100 WBC (Bld)58.6 %Normal 43.0-75.0The [facility] SystemComment on above:Performed By: #### CBC ####[facility] Pmmmkarkhq704[address] [place], [place] [address]Dr. Yilan ChangPlatelet mean volume (Bld) [Entitic vol]8.6 fLCritically low9.5-13.5 The [facility] SystemComment on above:Performed By: #### CBC ####[facility] Uxtlsfvzwx6664[address] [place], [place] [address]Dr.Yilan DlitoPUC127 103/vtJhptzs998-278Zee [facility] SystemComwalter p. [facility] on above:Performed By: #### CBC ####[facility] Wtsszcxfup15[address] [place] [address]Dr. Yilan ChangRBC3.61 106/ulCritically low4.20-5.40The [facility] SystemComwalter p. [facility]uther psychiatric hospital on above:Performed By: #### CBC ####[facility] Aiuowepxfj3827[address] [place], [place] [address]Dr.Yilan ChangWBC5.3 103/ulNormal4.0-11.0The [facility] SystemComment on above:Performed By: #### CBC ####[facility] Mcrxlkvpvr1228 [place] [address]Dr.Grace ChangCULTURE URINEon 14-44-0653CQBOVYJ URINENormalThe [facility] SystemComment on above:Performed By: #### URCX ####[facility] Wscxhmjsos69[address] [place] [address]Dr. Grace BestPOINT OF CARE GLUCOSEon 04-02-9576Biukhaf [Mass/Vol]473 mg/dLCritically fmvp28-322Gal [facility] SystemComment on above:Performed By: #### POCGLUC ####[facility] Hrcgngdlta56[address] [place] [address]Dr. Grace ChangPROF 14(COMP METB)on 92-62-2880Xudotjf [Mass/Vol]2.3 g/dL Critically low3.4-5.0The [facility] SystemComment on above:Performed By: #### CMP ####[facility] Yyxetvberq168[address] [place], [place] [address]Dr. Grace ChangAlbumin/Globulin [Mass ratio]0.7 {ratio}NormalThe [facility] Comment on above:Performed By: #### CMP ####[facility] Nohmhjtldi086[address] [place], [place] [address]Dr.Grace ChangALP [Catalytic activity/Vol]71 U/MKuvhgq59-938Qsb [facility] SystemComment on above:Performed By: #### CMP ####[facility] Jheeryondm06[address] [place], [place] [address]Dr. Roxannelan ChangALT [Catalytic activity/Vol]12 U/LCritically mxr69-44Osz [facility] SystemComment on above:Performed By: #### CMP ####[facility] Lpwhkojavr[address] [place], [place] [address]Dr.Grace ChangAnion gap [Moles/Vol]9.1 mmol/LNormalThe [facility] SystemComment on above:Performed By: #### CMP ####[facility] Qsbrjstnfa2585[address] [place], [place] [address]Dr.Grace ChangAST [Catalytic activity/Vol]10 U/LCritically teg64-02Uad [facility] SystemComment on above:Performed By: #### CMP ####[facility] Almaczogdb5035[address] [place], [place] [address]Dr.Yilan ChangBilirubin [Mass/Vol]0.2 mg/dLNormal0.2-1.0The [facility] SystemComment on above:Performed By: #### CMP ####[facility] Vdlwtlfpuz098[address] [place], [place] [address]Dr.Yilan ChangCalcium [Mass/Vol]8.1 mg/dLCritically low8.5-10.1The [facility] SystemComment on above:Performed By: #### CMP ####[facility] Vsprhlenbt088[address] [place], [place] [address]Dr.Yilan ChangChloride [Moles/Vol]104 mmol/YElzlta29-416Xbk [facility] SystemComment on above:Performed By: #### CMP ####[facility] Wzftnmlppw20[address] [place], [place] [address]Dr.Yilan ChangCO2 [Moles/Vol]24.5 mmol/RHtgmzo84.0-32.0The [facility] SystemComment on above:Performed By: #### CMP ####[facility] Dfkvcoenoo2926[address] [place], [place] [address]Dr.Yilan ChangCreatinine [Mass/Vol]0.50 mg/dLCritically low0.55-1.02The [facility] SystemComment on above:Performed By: #### CMP ####[facility] Ymrfpxjabl638[address] [place], [place] [address]Dr.Yilan ChangEGFR-AF TUNISIAN>60Normal>=60The [facility] SystemComment on above:Performed By: #### CMP ####[facility] Ndvfhcdkha0422[address] [place], [place] [address]Dr.Yilan ChangEGFR-NON AF TUNISIAN>60Normal>=60The [facility] SystemComment on above:Performed By: #### CMP ####[facility] Wgqkrnexga7633[address] [place], [place] [address]Dr. Yilan ChangGlobulin (S) [Mass/Vol]3.1 g/dLNormalThe [facility] SystemComment on above:Performed By: #### CMP ####[facility] Xgztxaogvl9595[address] [place], [place] [address]Dr.Yilan ChangGlucose [Mass/Vol]322 mg/dLCritically xrri51-928Ymv [facility] SystemComment on above:Performed By: #### CMP ####[facility] Axzlkfnsya892[address] [place], [place] [address]Dr. Yilan ChangPotassium [Moles/Vol]3.6 mmol/LNormal3.5-5.1The [facility] Comment on above:Performed By: #### CMP ####[facility] Zxtztocckr721[address] [place], [place] [address]Dr.Yilan ChangProtein [Mass/Vol]5.4 g/dL Critically low6.4-8.2The [facility] SystemComment on above:Performed By: #### CMP ####[facility] Afiqgkqvsz732[address] [place], [place] [address]Dr. Yilan ChangSodium [Moles/Vol]134 mmol/LCritically ubi017-673Zvu [facility] SystemComment on above:Performed By: #### CMP ####[facility] Xvtiffrhfa6067[address] [place], [place] [address]Dr.Yilan ChangUrea nitrogen [Mass/Vol]18.0 mg/dLNormal7.0-18.0The [facility] SystemComment on above: Performed By: #### CMP ####[facility] Httjqcobov664[address] [place], [place] [address]Dr.Yilan ChangUrea nitrogen/Creatinine [Mass ratio] 36.0 mg/mgNoMarietta Osteopathic ClinicComment on above:Performed By: #### CMP ####[facility] Nyxzksnimf24[address] [place], [place] [address]Dr. Yilan ChangCBC AUTO DIFFon 23-98-4079XNBV #0.0 103/ulNormal0.0-0.1The [facility] SystemComment on above:Performed By: #### CBC ####[facility] Fzkrnaxvgx[address] [place], [place] [address]Dr.Yilan ChangBasophils/100 WBC (Bld)0.2 %Normal0.2-2.0The [facility] Health SystemComment on above:Performed By: #### CBC ####[facility] Ylvqqdynkk4900[address] [place], [place] [address]Dr.Yilan ChangEO #0.0 103/ulNormal0.0-0.7The [facility] SystemComment on above:Performed By: #### CBC ####[facility] Flckmoglyc1416[address] [place], [place] [address]Dr.Yilan ChangEosinophils/100 WBC (Bld)0.2 %Critically low0.9-7.0The [facility] SystemComment on above:Performed By: #### CBC ####[facility] Cywryupgxf5612[address] [place], [place] [address]Dr. Yilan ChangErythrocyte distribution width (RBC) [Ratio]14.4 %Lxvdkq25.0-15.0The [facility] SystemComment on above:Performed By: #### CBC ####[facility] Ougupetsod8714[address] [place], [place] [address]Dr.Roxannelan ChangHematocrit (Bld) [Volume fraction]31.9 %Critically low36.0-48.0The [facility] SystemComment on above:Performed By: #### CBC ####[facility] Zljipweecn999[address] [place], [place] [address]Dr.Yilan ChangHemoglobin (Bld) [Mass/Vol]10.6 g/dL Critically low12.0-16.0The [facility] SystemComment on above:Performed By: #### CBC ####[facility] Rpqilpqxlz3530[address] [place], [place] [address]Dr. Yilan ChangIG #0.03 10e3/ulNormal0.00-0.03The [facility] SystemComment on above: Performed By: #### CBC ####[facility] Fywojyciou[address] [place], [place] [address]Dr.Yilan ChangIG %0.3 %Normal0.0-0.5The [facility] SystemComment on above:Performed By: #### CBC ####[facility] Lllnsihdjp4[address] [place] [id number].Grace BestLYMPH #1.9 103/ulNormal1.2-3.8The [facility] SystemComment on above:Performed By: #### CBC ####[facility] Qkswonxqjb7[address] [place] [address]Dr. Grace BestLymphocytes/100 WBC (Bld)19.1 %Critically low20.5-60.0The [facility] SystemComment on above:Performed By: #### CBC ####[facility] Ntodcdjjzn6[address] [place] [address]Dr.Grace BestMANUAL DIFF REQ NONormalThe [facility] SystemComment on above:Performed By: #### CBC ####[facility] Bdyiaoufft022[address] [place] [address]Dr. Grace BestMCH (RBC) [Entitic mass]29.0 xdMferdy30.7-34.0The [facility] Comment on above:Performed By: #### CBC ####[facility] Zhnwpwddnk[address] [place], [place] [address]Dr.Grace BestMCHC (RBC) [Mass/Vol]33.2 g/dL Qkttli11.9-35.2The [facility] SystemComment on above:Performed By: #### CBC ####[facility] Tmflvtkgki7[address] [place] [address]Dr. Grace BestMCV (RBC) [Entitic vol]87.2 fGXzxinz56.0-99.0The [facility] Comment on above:Performed By: #### CBC ####[facility] Njmftbusqy79[address] [place] [address]Dr.Grace BestMONO #0.5 103/ulNormal0.3-0.8 The [facility] SystemComment on above:Performed By: #### CBC ####[facility] Vmqjyylbsa465[address] [place], [place] [address]Dr.Grace Best Monocytes/100 WBC (Bld)4.6 %Normal1.7-12.0The [facility] SystemComment on above: Performed By: #### CBC ####[facility] Owedqctepp101[address] [place] [address]Dr.Grace BestNEUT #7.4 103/ulCritically high1.4-6.5 The [facility] SystemComment on above:Performed By: #### CBC ####[facility] Outeowyxyi26[address] [place] [address]Dr.Grace Best Neutrophils/100 WBC (Bld)75.6 %Critically high43.0-75.0The [facility] Comment on above:Performed By: #### CBC ####[facility] Oqkgosihvj76[address] [place] [address]Dr.Roxannecam NasirPlatelet mean volume (Bld) [Entitic vol]8.4 fLCritically low9.5-13.5The [facility] SystemComment on above: Performed By: #### CBC ####[facility] Xzjrvlaugp2301[address] [place], [place] [address]Dr.Grace JiaheTQD233 103/vrItewmc030-746Dsq [facility] SystemComment on above:Performed By: #### CBC ####[facility] Xurdmbxwzr8575[address] [place], [place] [address]Dr.Grace NasirRBC3.66 106/ul Critically low4.20-5.40The [facility] SystemComment on above:Performed By: #### CBC ####[facility] Pjxjqkuuwv846[address] [place], [place] [address]Dr. Grace NasirWBC9.8 103/ulNormal4.0-11.0The [facility] SystemComment on above: Performed By: #### CBC ####[facility] Xvbxpnugxo267[address] [place], [place] [address]Dr.Grace BestEMORY [facility] GLUCOSEon 03-31-2022 Glucose [Mass/Vol]387 mg/dLCritically jxbm79-789Zpx [facility] SystemComment on above:Performed By: #### POCGLUC ####[facility] Zymxuyqexs1025[address] [place], [place] [address]Dr. Grace BestPROF 14(COMP METB)on 14-43-0180Criorij [Mass/Vol]2.7 g/dLCritically low3.4-5.0The [facility] SystemComment on above: Performed By: #### CMP ####[facility] Uxfxkmazyh24[address] [place] [address]Dr.Yilan ChangAlbumin/Globulin [Mass ratio]0.8 {ratio} NormalThe [facility] SystemComment on above:Performed By: #### CMP ####[facility] Ilsmjuigjc207[address] [place], [place] [address]Dr.Yilan ChangALP [Catalytic activity/Vol]75 U/KWboibo19-417Pkd [facility] SystemComment on above: Performed By: #### CMP ####[facility] Gzgvdwtoxc040[address] [place], [place] [address]Dr.Yilan ChangALT [Catalytic activity/Vol]11 U/L Critically jme19-33Rju [facility] SystemComment on above:Performed By: #### CMP ####[facility] Yevpnvzagc730[address] [place], [place] [address]Dr. Yicam ChangAnion gap [Moles/Vol]12.7 mmol/LNormalThe [facility] SystemComment on above:Performed By: #### CMP ####[facility] Gxgpvsykea505[address] [place], [place] [address]Dr.Yilan ChangAST [Catalytic activity/Vol]10 U/L Critically vuh64-03Scp [facility] SystemComment on above:Performed By: #### CMP ####[facility] Eqdzihhvsn390[address] [place], [place] [address]Dr. Yilan ChangBilirubin [Mass/Vol]0.4 mg/dLNormal0.2-1.0The [facility] Comment on above:Performed By: #### CMP ####[facility] Iuaumzhqqf724[address] [place], [place] [address]Dr.Yilan ChangCalcium [Mass/Vol]8.2 mg/dL Critically low8.5-10.1The [facility] SystemComment on above:Performed By: #### CMP ####[facility] Oujpwdxrkq982[address] [place], [place] [address]Dr. Yilan ChangChloride [Moles/Vol]102 mmol/DXzdolw30-786Nnm [facility] Comment on above:Performed By: #### CMP ####[facility] Vfmexjmwcm3814[address] [place], [place] [address]Dr.Grace ChangCO2 [Moles/Vol]24.8 mmol/L Pufrkt42.0-32.0The [facility] SystemComment on above:Performed By: #### CMP ####[facility] Bqkfnyhzyf6510[address] [place], [place] [address]Dr. Grace ChangCreatinine [Mass/Vol]0.46 mg/dLCritically low0.55-1.02The [facility] SystemComment on above:Performed By: #### CMP ####[facility] Xxjzjeqyaw424[address] [place], [place] [address]Dr.Yilan ChangEGFR-AF TUNISIAN>60Normal>=60The [facility] SystemComment on above:Performed By: #### CMP ####[facility] Dmyvgsnyzi576[address] [place], [place] [address]Dr. Yilan ChangEGFR-NON AF TUNISIAN>60Normal>=60The [facility] SystemComment on above:Performed By: #### CMP ####[facility] Eusmdmccud9420[address] [place], [place] [address]Dr.Grace ChangGlobulin (S) [Mass/Vol]3.2 g/dLNormalThe [facility] SystemComment on above:Performed By: #### CMP ####[facility] Wjxnswxqoc2680[address] [place], [place] [address]Dr.Yilan ChangGlucose [Mass/Vol]177 mg/dLCritically zpxk32-630Wyz [facility] SystemComment on above: Performed By: #### CMP ####[facility] Mvxkosaoug5437[address] [place], [place] [address]Dr.Yilan ChangPotassium [Moles/Vol]3.5 mmol/LNormal 3.5-5.1The [facility] SystemComment on above:Performed By: #### CMP ####[facility] Qdslvfaqpy675[address] [place], [place] [address]Dr.Roxannelan Best Protein [Mass/Vol]5.9 g/dLCritically low6.4-8.2The [facility] SystemComment on above:Performed By: #### CMP ####[facility] Mxjeychrzj0218[address] [place], [place] [address]Dr.Yilan ChangSodium [Moles/Vol]136 mmol/LNormal 136-145The [facility] SystemComment on above:Performed By: #### CMP ####[facility] Zhpzjetegk904[address] [place], [place] [address]Dr.Yilan ChangUrea nitrogen [Mass/Vol]10.0 mg/dLNormal7.0-18.0The [facility] SystemComment on above:Performed By: #### CMP ####[facility] Pbjhjrytcp907[address] [place], [place] [address]Dr.Yilan ChangUrea nitrogen/Creatinine [Mass ratio] 21.7 mg/mgNormalThe [facility] SystemComment on above:Performed By: #### CMP ####[facility] Rcqgcllpcr68399[address] [place], [place] [address]Dr. Yilan ChangCBC AUTO DIFFon 15-76-9608CFNK #0.0 103/ulNormal0.0-0.1The [facility] SystemComment on above:Performed By: #### CBC ####[facility] Fazjtryacq2217[address] [place], [place] [address]Dr.Yilan ChangBasophils/100 WBC (Bld)0.3 %Normal0.2-2.0The [facility] SystemComment on above:Performed By: #### CBC ####[facility] Hkrqblzach567[address] [place], [place] [address]Dr.Yilan ChangEO #0.0 103/ulNormal0.0-0.7The [facility] SystemComment on above:Performed By: #### CBC ####[facility] Mbvmwjfnil934[address] [place], [place] [address]Dr.Yilan ChangEosinophils/100 WBC (Bld)0.2 %Critically low0.9-7.0The [facility] SystemComment on above:Performed By: #### CBC ####[facility] Zubahmqtyh925[address] [place], [place] [address]Dr. Roxannecam ChangErythrocyte distribution width (RBC) [Ratio]14.6 %Kndemm27.0-15.0The [facility] SystemComment on above:Performed By: #### CBC ####[facility] Bezyugizlq692[address] [place], [place] [address]Dr.Roxannecam ChangHematocrit (Bld) [Volume fraction]34.8 %Critically low36.0-48.0The [facility] HospitalComment on above:Performed By: #### CBC ####[facility] Itgwryhghg3528[address] [place], [place] [address]Dr.Roxannecam ChangHemoglobin (Bld) [Mass/Vol]11.0 g/dL Critically low12.0-16.0The [facility] SystemComment on above:Result Comment: fluids givenPerformed By: #### CBC ####[facility] Raccihsqzl480[address] [place], [place] [address]Dr.Yilan ChangIG #0.01 10e3/ulNormal0.00-0.03The [facility] SystemComment on above:Performed By: #### CBC ####[facility] Nzurnclqnx458[address] [place], [place] [address]Dr.Grace ChangIG %0.2 %Normal 0.0-0.5The [facility] SystemComwalter p. [facility] on above:Performed By: #### CBC ####[facility] Losueoazbr6534[address] [place], [place] [address]Dr.Roxannecam ChangLYMPH #1.2 103/ulNormal1.2-3.8The [facility] SystemComment on above:Performed By: #### CBC ####[facility] Uejwbuitgy0105[address] [place], [place] [address]Dr.Roxannecam BestLymphocytes/100 WBC (Bld)21.4 %Nbnblp12.5-60.0The [facility] SystemComment on above:Performed By: #### CBC ####[facility] Vxcjcrocwl146[address] [place], [place] [address]Dr.Roxannecam BestMANUAL DIFF REQ NONormalThe [facility] SystemComment on above:Performed By: #### CBC ####[facility] Mzwzeogqge16[address] [place] [address]Dr. Grace BestH (RBC) [Entitic mass]28.6 qsHupbfh26.7-34.0The [facility] Comment on above:Performed By: #### CBC ####[facility] Wsvxavpapj035[address] [place] [address]Dr.Grace BestMCHC (RBC) [Mass/Vol]31.6 g/dL Jyymuw33.9-35.2The [facility] SystemComment on above:Performed By: #### CBC ####[facility] Srcenhltqn9512 [place] [address]Dr. Grace NasirV (RBC) [Entitic vol]90.6 sJYpttmp27.0-99.0The [facility] Comment on above:Performed By: #### CBC ####[facility] Kywcwvoyls5570[address] [place], [place] [address]Dr.Grace NasirMONO #0.5 103/ulNormal0.3-0.8 The [facility] SystemComment on above:Performed By: #### CBC ####[facility] Mtdzfmdhce414[address] [place], [place] [address]Dr.Grace Nasir Monocytes/100 WBC (Bld)9.0 %Normal1.7-12.0The [facility] SystemComment on above: Performed By: #### CBC ####[facility] Vocstjmwwg179[address] [place], [place] [address]Dr.Grace NasirNEUT #4.0 103/ulNormal1.4-6.5The [facility] SystemComment on above:Performed By: #### CBC ####[facility] Xjivljerzi7667[address] [place], [place] [address]Dr.Grace NasirNeutrophils/100 WBC (Bld)68.9 %Dwhiqe50.0-75.0The [facility] SystemComment on above:Performed By: #### CBC ####[facility] Jtbbmdwizo6716[address] [place], [place] [address]Dr.Grace NasirPlatelet mean volume (Bld) [Entitic vol]8.5 fLCritically low 9.5-13.5The [facility] SystemComment on above:Performed By: #### CBC ####[facility] Eeutwagrqd609[address] [place], [place] [address]Dr. Grace BestPLT421 103/zeEslomz387-996Fsr [facility] SystemComment on above: Performed By: #### CBC ####[facility] Ngjyizfiek305[address] [place], [place] [address]Dr.Grace ChangRBC3.84 106/ulCritically low4.20-5.40The [facility] SystemComment on above:Performed By: #### CBC ####[facility] Ubioaqsyle032[address] [place], [place] [address]Dr.Grace ChangWBC5.8 103/ul Normal4.0-11.0The [facility] SystemComment on above:Performed By: #### CBC ####[facility] Oomikdijzb2664[address] [place], [place] [address]Dr. [facility] ChangLACTATE/LACTIC ACIDon 33-52-7886Lxrhdav [Moles/Vol]6.0 mmol/L Critically high0.4-1.9[facility] CenterComment on above:Performed By: #### LACT ####[facility] Svsvwvrtqp286[address] [place], [place] [address]Dr. cam BestMAGNESIUMon 95-62-7069Ljwzxzags [Mass/Vol]2.2 mg/dLNormal 1.8-2.4The [facility] SystemComment on above:Performed By: #### MG, T4 ####[facility] Abehhasqko742[address] [place], [place] [address]Dr. RoxanneUniversity of Utah HospitalPOINT OF CARE GLUCOSEon 05-17-4455Kpgttyh [Mass/Vol]269 mg/dL Critically sahi89-946Vuu [facility] SystemComment on above:Performed By: #### POCGLUC ####[facility] Uguiufhnop840[address] [place], [place] [address]Dr. Roxannecam ChangGlucose [Mass/Vol]349 mg/dLCritically olpj73-985Gjx [facility] SystemComment on above:Performed By: #### POCGLUC ####[facility] Fvawgznedm1723 [place] [address]Dr. Yilan ChangGlucose [Mass/Vol]472 mg/dLCritically uehb04-282Dbi [facility] SystemComment on above: Performed By: #### POCGLUC ####[facility] Fwvpbppqzg7564[address] [place], [place] [address]Dr. Yilan ChangPROF 14(COMP METB)on 51-30-9162Zbycxvf [Mass/Vol]2.8 g/dLCritically low3.4-5.0The [facility] SystemComment on above: Performed By: #### CMP ####[facility] Jlqbmhztfb370[address] [place], [place] [address]Dr.Yilan ChangAlbumin/Globulin [Mass ratio]0.8 {ratio} NormalThe [facility] SystemComment on above:Performed By: #### CMP ####[facility] Tmqhzwomqo864[address] [place], [place] [address]Dr.Yilan ChangALP [Catalytic activity/Vol]87 U/FRmpwah26-322Tvi [facility] SystemComment on above: Performed By: #### CMP ####[facility] Zcofxpssvh541[address] [place], [place] [address]Dr.Yilan ChangALT [Catalytic activity/Vol]11 U/L Critically fnq66-50Yak [facility] SystemComment on above:Performed By: #### CMP ####[facility] Htkgwxuwqv3000[address] [place], [place] [address]Dr. Yilan ChangAnion gap [Moles/Vol]13.5 mmol/LNormalThe [facility] SystemComment on above:Performed By: #### CMP ####[facility] Ywzfdxttfr6023[address] [place], [place] [address]Dr.Yilan ChangAST [Catalytic activity/Vol]9 U/L Critically uuc66-75Hsj [facility] SystemComment on above:Performed By: #### CMP ####[facility] Iguuocdute2385[address] [place], [place] [address]Dr. Yilan ChangBilirubin [Mass/Vol]0.1 mg/dLCritically low0.2-1.0The [facility] SystemComment on above:Performed By: #### CMP ####[facility] Fwlomyzrmp0141 [place] [address]Dr.Yilan ChangCalcium [Mass/Vol]8.9 mg/dLNormal8.5-10.1The [facility] SystemComment on above:Performed By: #### CMP ####[facility] Wuspgfvjgz696[address] [place], [place] [address]Dr.Yilan ChangChloride [Moles/Vol]118 mmol/LCritically ftlh20-449Yta [facility] SystemComment on above:Performed By: #### CMP ####[facility] Fbxnmukyfz7750[address] [place], [place] [address]Dr.Yilan ChangCO2 [Moles/Vol] 22.1 mmol/SEjcwwh76.0-32.0The [facility] SystemComment on above:Performed By: #### CMP ####[facility] Rtvedmyjuv408[address] [place], [place] [address]Dr.Yilan ChangCreatinine [Mass/Vol]0.63 mg/dLNormal0.55-1.02The [facility] SystemComment on above:Performed By: #### CMP ####[facility] Uanqtiksrr6464[address] [place], [place] [address]Dr.Yilan ChangEGFR-AF TUNISIAN>60Normal>=60The [facility] SystemComment on above:Performed By: #### CMP ####[facility] Zmlxgtpfvl175[address] [place], [place] [address]Dr. Yilan ChangEGFR-NON AF TUNISIAN>60Normal>=60The [facility] SystemComment on above:Performed By: #### CMP ####[facility] Llrsixeaeb143[address] [place], [place] [address]Dr.Yilan ChangGlobulin (S) [Mass/Vol]3.6 g/dLNormalThe [facility] SystemComment on above:Performed By: #### CMP ####[facility] Nnlbfdplpc999[address] [place], [place] [address]Dr.Yilan ChangGlucose [Mass/Vol]222 mg/dLCritically wekz70-410Dmn [facility] SystemComment on above: Performed By: #### CMP ####[facility] Azwlleunxs8548[address] [place], [place] [address]Dr.Yilan ChangPotassium [Moles/Vol]5.3 mmol/L Critically high3.5-5.1The [facility] SystemComment on above:Performed By: #### CMP ####[facility] Mytmfhvgsk059[address] [place], [place] [address]Dr. Yilan ChangProtein [Mass/Vol]6.4 g/dLNormal6.4-8.2The [facility] SystemComment on above:Performed By: #### CMP ####[facility] Aplzzmjufb4699[address] [place], [place] [address]Dr.Yilan ChangSodium [Moles/Vol]151 mmol/LCritically zjez489-354Dgj [facility] SystemComment on above:Performed By: #### CMP ####[facility] Wvqmtzrtxh7615[address] [place], [place] [address]Dr. Yilan ChangUrea nitrogen [Mass/Vol]19.0 mg/dLCritically high7.0-18.0The [facility] SystemComment on above:Performed By: #### CMP ####[facility] Jrzhlucgie937[address] [place], [place] [address]Dr.Yilan ChangUrea nitrogen/Creatinine [Mass ratio]30.1 mg/mgNormalThe [facility] SystemComment on above:Performed By: #### CMP ####[facility] Fteggtuwhn852[address] [place], [place] [address]Dr.Yilan DavdzE9jb 61-98-3697O4 [Mass/Vol]8.20 ug/dL Normal4.80-13.90The [facility] SystemComment on above:Performed By: #### MG, T4 ####[facility] Ygvdaryhdm1475[address] [place], [place] [address]Dr. Yilan ChangACETONE SERUMon 84-24-4765XIAPYWADgrldwcwEqrqawCYULIOZVFns [facility] SystemComment on above:Performed By: #### ACETON ####[facility] Dvzwhunnia84399[address] [place], [place] [address]Dr. Yilan ChangAMMONIAon 18-77-8045Tgpkyhj (P) [Moles/Vol]10 umol/LCritically tqe96-48Seh [facility] SystemComment on above:Performed By: #### AMM ####[facility] Vlbwditzdz4[address] [place] [address]Dr.Roxannecam NasirCBC AUTO DIFFon 23-34-4041DGYE #0.0 103/ulNormal0.0-0.1The [facility] HospitalComment on above: Performed By: #### CBC ####[facility] Alswivwsur927[address] [place], [place] [address]Dr.Grace ChangBasophils/100 WBC (Bld)0.2 %Normal 0.2-2.0The [facility] SystemComment on above:Performed By: #### CBC ####[facility] Fisxpkdjup2048[address] [place], [place] [address]Dr.Roxannelan ChangEO # 0.0 103/ulNormal0.0-0.7The [facility] SystemComment on above:Performed By: #### CBC ####[facility] Uhsfsqgkdj239[address] [place], [place] [address]Dr. Roxannecam ChangEosinophils/100 WBC (Bld)0.0 %Critically low0.9-7.0The [facility] SystemComment on above:Performed By: #### CBC ####[facility] Qcewyfregp0633[address] [place], [place] [address]Dr.Grace ChangErythrocyte distribution width (RBC) [Ratio]14.6 %Sriopu90.0-15.0The [facility] Comment on above:Performed By: #### CBC ####[facility] Gdfmipbtde421[address] [place], [place] [address]Dr.Grace ChangHematocrit (Bld) [Volume fraction]41.4 %Ihinba88.0-48.0The [facility] SystemComment on above:Performed By: #### CBC ####[facility] Mtunzvcegm0525[address] [place], [place] [address]Dr.Grace ChangHemoglobin (Bld) [Mass/Vol]13.4 g/xQVnscnq35.0-16.0The [facility] SystemComment on above:Performed By: #### CBC ####[facility] Eofownkvnw3270[address] [place], [place] [address]Dr.Roxannecam BestIG #0.01 10e3/ulNormal0.00-0.03The [facility] SystemComment on above:Performed By: #### CBC ####[facility] Xhumvyhyjk009[address] [place], [place] [address]Dr. Grace BestIG %0.2 %Normal0.0-0.5The [facility] HospitalComment on above:Performed By: #### CBC ####[facility] Fdmcsqvrfa899[address] [place], [place] [address]Dr.Grace BestLYMPH #0.5 103/ulCritically low1.2-3.8The [facility] SystemComment on above:Performed By: #### CBC ####[facility] Pyvghujhhe146[address] [place], [place] [address]Dr.Grace BestLymphocytes/100 WBC (Bld)8.9 %Critically low20.5-60.0The [facility] HospitalComment on above: Performed By: #### CBC ####[facility] Pexjbvgeia447[address] [place], [place] [address]Dr.Grace BestMANUAL DIFF REQNONormalThe [facility] SystemComment on above:Performed By: #### CBC ####[facility] Ratmxtixem847[address] [place], [place] [address]Dr.Grace BestBELLEVUE [facility] (RBC) [Entitic mass]28.8 qoFwurgf23.7-34.0The [facility] HospitalComment on above: Performed By: #### CBC ####[facility] Caxcsxstbp928[address] [place], [place] [address]Dr.Grace BestHC (RBC) [Mass/Vol]32.4 g/dLNormal 29.9-35.2The [facility] HospitalComment on above:Performed By: #### CBC ####[facility] Xxpuiblkay5070[address] [place], [place] [address]Dr. Grace BestMCV (RBC) [Entitic vol]88.8 yHDupwum98.0-99.0The [facility] Comment on above:Performed By: #### CBC ####[facility] Lpiokkozvb2432[address] [place], [place] [address]DrFercho KimO #0.2 103/ulCritically low 0.3-0.8The [facility] HospitalComment on above:Performed By: #### CBC ####[facility] Iostsespmv029[address] [place], [place] [address]DrFercho Best Monocytes/100 WBC (Bld)3.2 %Normal1.7-12.0The [facility] SystemComment on above: Performed By: #### CBC ####[facility] Rvccbcnpul3213[address] [place], [place] [address]DrFercho JeongUT #4.9 103/ulNormal1.4-6.5The [facility] SystemComment on above:Performed By: #### CBC ####[facility] Evdvxmxirr670[address] [place], [place] [address]Dr.Grace BestNeutrophils/100 WBC (Bld)87.5 %Critically high43.0-75.0The [facility] SystemComment on above: Performed By: #### CBC ####[facility] Vlmalajhvl211[address] [place], [place] [address]DrFercho BestPlatelet mean volume (Bld) [Entitic vol] 9.0 fLCritically low9.5-13.5The [facility] HospitalComment on above:Performed By: #### CBC ####[facility] Iagafyvdei307[address] [place], [place] [address]Dr.Grace BestPLT544 103/ulCritically mjks140-483Sbd [facility] Comment on above:Performed By: #### CBC ####[facility] Ongarlhoqt5948[address] [place], [place] [address]DrFercho BsetRBC4.66 106/ulNormal4.20-5.40 The [facility] SystemComment on above:Performed By: #### CBC ####[facility] Lvlzxlfavn[address] [place], [place] [address]Dr.Grace BestWBC5.6 103/ulNormal4.0-11.0The [facility] SystemComment on above:Performed By: #### CBC ####[facility] Fcllcomsoi[address] [place] [address]Dr. Grace BestCT STROKE HEAD WOon 01-45-6601DT STROKE HEAD WONormalThe [facility] SystemCULTURE BLOODon 76-33-6024Kkrcclhovzj examination of blood, culture Culture Observations: NO GROWTH AT 5 DAYS.NormalThe Troup HospitalComment on above:Performed By: #### BLDCX2 ####[facility] [id number] [id number]. Grace BestMicroscopic examination of blood, cultureCulture Observations: NO GROWTH AT 5 DAYS.NormalOhio State University Wexner Medical CenterComment on above:Performed By: #### [email or web address] ####[facility] [id number] [id number]. Grace NasirCovid-19 PCR (CVDTBH)on [id number]-CoV-2 (COVID-19) RNA LOUISE+probe Ql (Unsp spec)Not detectedNormalNOT DETECTEDOhio State University Wexner Medical Center Comment on above:Result Comment: When diagnostic testing is negative, the possibility of a false negative should be considered inthe context of a patient's recent exposures and the presence of clinical signs and sympt omsconsistent with SARS-CoV-2.This test is not yet approved or cleared by the [place] FDA. When there are no FDA-approved or cleared tests available, and other criteria are met, FDA can make tests available under an emergency access mechanism called an Emergency Use Authorization (EUA). The EUA for this test is supported by the [place] of Health and Human Service's declaration that circumstances exist to justify the emergency use of in vitro diagnostics for the detection and/or diagnosis of the virus that causes COVID-19. This EUA will remain in effect for the duration of the COVID-19declaration justifying emergency of IVDs, unless it is terminated or revoked by the FDA (after which the test may no longer be used).Performed By: #### CVDTBH ####[facility] [address]akiokegr[address] [place] [address]Dr. Grace BestDRUG SCREEN RAPID (URINE)on 50-59-9388BAOXheefmrcRtbmpnRCPJJHWLDjx Bellevue HospitalComment on above:Performed By: #### UMABHAY ERUR, DRUGRPD ####[facility] Pnvsdioerx[address] [place] [address]Dr. Grace ChangBARNegative NormalNEGATIVEOhio State University Wexner Medical CenterComment on above:Performed By: #### SIMÓN ERUR, DRUGRPD ####[facility] Nbansucbsf[address] [place], [place] [address]Dr. Grace ChangBUPNegativeNormalNEGATIVEOhio State University Wexner Medical CenterComment on above:Performed By: #### TOMICFRANCESCO ERUR, DRUGRPD ####[facility] Avplirkfaz50[address] [place], [place] [address]Dr. Grace ChangBZONegative NormalNEGATIVEOhio State University Wexner Medical CenterComment on above:Performed By: #### SIMÓN ERUR, DRUGRPD ####[facility] Tjgwcsajpj[address] [place], [place] [address]Dr. Grace ChangCOCNegativeNormalNEGATIVEOhio State University Wexner Medical CenterComment on above:Performed By: #### SIMÓN, ERUR, DRUGRPD ####[facility] Gkzuzrbpha164[address] [place], [place] [address]Dr. Grace NasirCUT-OFFSSEE White HospitalComment on above:Result Comment: AMP (Amphetamine): 500ng/mL, BAR (Barbituates): 200 ng/mL, BZO (Benzodiazepines): 15 0 ng/mL, BUP (Buprenorphine): 10 ng/mL, MATTHEW (Cocaine): 150 ng/mL, mAMP (Methamphetamine): 500 ng/mL, MTD (Methadone): 200 ng/mL, OPI (Opiates): 100 ng/mL, OXY (Oxycodone): 100 ng/mL, PCP (Phencyclidine): 25 ng/mL, PPX (Propoxyphene): 300 ng/mL, THC (Cannabinoids): 50 ng/mL, TCA (Trycyclic Antidepressants): 300 ng/mLPerformed By: #### UMICRO, ERUR, DRUGRPD ####[facility] Nziwhyfikb[address] [place], [place] [address]Dr. Grace BestDRUG CUT HEADERDRUG CLASS TEST SYSTEM CUT-OFF CONCENTRATIONS ARE FOLLOWS:NormalOhio State University Wexner Medical CenterComment on above:Performed By: #### UMICRO, ERUR, DRUGRPD ####[facility] Rullnqyqiu[address] [place], [place] [address]Dr. Grace BestmAMPNegativeNormalNEGATIVEOhio State University Wexner Medical CenterComment on above: Performed By: #### UMICRO, ERUR, DRUGRPD ####[facility] Ytzjzoplhy[address] [place], [place] [address]Dr. Grace BestMTDNegativeNormalNEGATIVEOhio State University Wexner Medical CenterComment on above:Performed By: #### UMICRO, ERUR, DRUGRPD ####[facility] Xuwkqmztpn153[address] [place], [place] [address]Dr. Grace BestOPINegativeNormalNEGATIVEOhio State University Wexner Medical CenterComment on above: Performed By: #### UMICRO, ERUR, DRUGRPD ####[facility] Lnjqfdnweh307[address] [place], [place] [address]Dr. Grace BestOXYNegativeNormalNEGATIVEOhio State University Wexner Medical CenterComment on above:Performed By: #### UMICRO, ERUR, DRUGRPD ####[facility] Jaiaivyrnm855[address] [place], [place] [address]Dr. Grace BestPCPNegativeNormalNEGATIVEOhio State University Wexner Medical CenterComment on above: Performed By: #### UMICRO, ERUR, DRUGRPD ####[facility] Juquehyniv715[address] [place], [place] [address]Dr. Grace BestPPXNegativeNormalNEGATIVEOhio State University Wexner Medical CenterComment on above:Performed By: #### UMICRO, ERUR, DRUGRPD ####[facility] Lpfwvqiqot65[address] [place], [place] [address]Dr. Grace BestTCANegativeNormalNEGATIVEOhio State University Wexner Medical CenterComment on above: Performed By: #### TEVIN GRR, DRUGRPD ####[facility] Npgpnwiecz[address] [place] [address]Dr. Yilan ChangTHCNegativeNormalNEGATIVEOhio State University Wexner Medical CenterComment on above:Performed By: #### TEVIN GRR, DRUGRPD ####[facility] Psojsszsdg[address] [place] [address]Dr. Yilan ChangER URINE PROFILEon 61-54-7480Btcfidjbz Ql (U)NegativeNormalNEGATIVE The [facility] Health SystemComment on above:Performed By: #### VIOLETA GR, DRUGRPD ####[facility] Fzyxpjxdme1979[address] [place], [place] [address]Dr. Yilan ChangClarity (U)SL CLOUDYAbnormalCLEARThRiverview Health InstituteComment on above:Performed By: #### VIOLETA GR, DRUGRPD ####[facility] Czpdozzphn289[address] [place], [place] [address]Dr. Yilan ChangColor (U)LT. YELLOWNormalYELLOWOhio State University Wexner Medical CenterComment on above:Performed By: #### VIOLETA GR, DRUGRPD ####[facility] Vvniywotrx99[address] [place], [place] [address]Dr. Yilan ChangERUAHDA micrscopic examination will be performed if indicated.NormalThe [facility] SystemComment on above:Performed By: #### TEVIN GRR, DRUGRPD ####[facility] Zclqwffews4[address] [place] [address]Dr. Yilan ChangGlucose Ql (U)>1000AbnormalNEGATIVEOhio State University Wexner Medical CenterComment on above:Performed By: #### TEVIN GRR, DRUGRPD ####[facility] Sfpreoixyo69[address] [place], [place] [address]Dr. Yilan ChangHemoglobin Ql (U)TRACE-INTACTAbnormalNEGATIVEOhio State University Wexner Medical Center Comment on above:Performed By: #### TEVIN GRR, DRUGRPD ####[facility] Pdzcyngnoc[address] [place] [address]Dr. Grace ChangKetones Ql (U) NegativeNormalNEGATIVEThe Troup HospitalComment on above:Performed By: #### VIOLETA GR, DRUGRPD ####[facility] Gmhvnpvagq[address] [place] [address]Dr. Grace BestLEUKOCYTESMODERATEAbnormalNEGATIVEThe Troup HospitalComment on above:Performed By: #### VIOLETA GR, DRUGRPD ####[facility] Nxvfbhbvoq97[address] [place] [address]Dr. Yicam ChangNitrite Ql (U)PositiveAbnormalNEGATIVEThe Troup HospitalComment on above:Performed By: #### VIOLETA GR, DRUGRPD ####[facility] Xnhhqgtkrq96[address] [place] [address]Dr. Grcae BestpH (U)[pH] Abnormal5-9The [facility] SystemComment on above:Performed By: #### VIOLETA GR, DRUGRPD ####[facility] Qhlkzbfsea[address] [place] [address]Dr. Grace BestSPEC GRAVITY1.573Egiagy7.005-<=1.025The [facility] SystemComment on above:Performed By: #### VIOLETA GR, DRUGRPD ####[facility] Lhljitbxzs54[address] [place] [address]Dr. Grace BestUA PROTEINNegativeNormalNEGATIVE/ TRACEThe Troup HospitalComment on above: Performed By: #### VIOLETA GR, DRUGRPD ####[facility] Kohzclgrze40[address] [place] [address]Dr. Grace BestUR MICRO INDINDICATEDNormal The Troup HospitalComment on above:Performed By: #### TEVIN GRR, DRUGRPD ####[facility] Ufxqopacsx24[address] [place] [address]Dr. Grace ChangUrobilinogen Qn (U)0.2 {Ancelmo'U}/dLNormal0.2 - 1.0The [facility] SystemComment on above:Performed By: #### UMTEVIN BLANKR, DRUGRPD ####[facility] Qbybmfkgjd05[address] [place] [address]Dr. Grace Best LACTATE/LACTIC ACIDon 95-60-4184Fwwdwmi [Moles/Vol]3.6 mmol/LCritically high 0.4-1.9The [facility] SystemComment on above:Performed By: #### LACT ####[facility] Aezgygebax7[address] [place], [place] [address]Dr. Grace BestLIPASEon 61-43-5702Ljyhxj [Catalytic activity/Vol]209.0 U/LNormal 73.0-393.0The [facility] SystemComment on above:Performed By: #### TSH, LIPA, HSTROPN, CMP ####[facility] Jclnzurmmx85[address] [place], [place] [address]Dr. Grace BestPH VENOUS BLOODon 80-86-0676IFD4 CEYYDZ50.8 mmHgCritically low40.0-52.0The [facility] SystemComment on above:Performed By: #### PHVEN ####[facility] Pyrhgowsud[address] [place], [place] [address]Dr. Grace BestpH VENOUS7.242Ccawvp2.330-7.430The [facility] SystemComment on above: Performed By: #### PHVEN ####[facility] Bvkjgturvs1134[address] [place], [place] [address]Dr. Grace Worcester County HospitalPOINT OF CARE GLUCOSEon 03-29-2022 POCGLUC>600Critically mytq11-628Suv [facility] SystemComment on above:Result Comment: Result Not ConfirmedPerformed By: #### POCGLUC ####[facility] Cegzjyqimh285[address] [place], [place] [address]Dr. Grace BestPROF 14(COMP METB)on 92-48-4815Cubteqz [Mass/Vol]3.8 g/dLNormal3.4-5.0The [facility] Comment on above:Performed By: #### TSH, LIPA, HSTROPN, CMP ####[facility] Rodswhtvck8[address] [place] [address]Dr. Grace Best Albumin/Globulin [Mass ratio]0.9 {ratio}NormalThe Madison Healthment on above:Performed By: #### TSH, LIPA, HSTROPN, CMP ####[facility] Uhkzhugksi50[address] [place] [address]Dr. Yilan ChangALP [Catalytic activity/Vol]112 U/HUbveln52-253Lsb [facility] SystemComment on above:Performed By: #### TSH, LIPA, HSTROPN, CMP ####[facility] Tligsoklow65[address] [place] [address]Dr. Yilan ChangALT [Catalytic activity/Vol]16 U/L Aemruk55-68Vko [facility] SystemComment on above:Performed By: #### TSH, LIPA, HSTROPN, CMP ####[facility] Awqdkuubss9799[address] [place], [place] [address]Dr. Grace ChangAnion gap [Moles/Vol]18.6 mmol/LNormalThe [facility] Comment on above:Performed By: #### TSH, LIPA, HSTROPN, CMP ####[facility] Cqnprjsncp89[address] [place], [place] [address]Dr. Yicam ChangAST [Catalytic activity/Vol]12 U/LCritically vcs57-55Sny Madison Healthment on above:Performed By: #### TSH, LIPA, HSTROPN, CMP ####[facility] Npaewjbqcb987[address] [place], [place] [address]Dr. Yilan ChangBilirubin [Mass/Vol]0.3 mg/dLNormal0.2-1.0The [facility] SystemComment on above:Performed By: #### TSH, LIPA, HSTROPN, CMP ####[facility] Tizzmefzet413[address] [place], [place] [address]Dr. Yilan ChangCalcium [Mass/Vol]9.6 mg/dLNormal 8.5-10.1The [facility] SystemComment on above:Performed By: #### TSH, LIPA, HSTROPN, CMP ####[facility] Iedaxmwxhv72[address] [place] [address]Dr. Yilan ChangChloride [Moles/Vol]100 mmol/MNrzwom11-669Egk [facility] SystemComment on above:Performed By: #### TSH, LIPA, HSTROPN, CMP ####[facility] Fpvpunstrz19[address] [place] [address]Dr. Yilan ChangCO2 [Moles/Vol]21.7 mmol/YCszvow55.0-32.0The [facility] SystemComment on above: Performed By: #### TSH, LIPA, HSTROPN, CMP ####[facility] Qdblxmhjnl674[address] [place], [place] [address]Dr. Yilan ChangCreatinine [Mass/Vol]1.08 mg/dLCritically high0.55-1.02The [facility] SystemComwalter p. [facility] on above:Performed By: #### TSH, LIPA, HSTROPN, CMP ####[facility] Cwlteycudq850[address] [place], [place] [address]Dr. Yilan ChangEGFR-AF VGPMAZRZ80 mL/min/1.51s4Iqmnoz >=60The [facility] SystemComment on above:Performed By: #### TSH, LIPA, HSTROPN, CMP ####[facility] Ljyolurtss64[address] [place], [place] [address]Dr. Yilan ChangEGFR-NON AF DVXSFFKV65 mL/min/1.76v9Vevlksgrto low>=60The [facility] SystemComwalter p. [facility] on above:Performed By: #### TSH, LIPA, HSTROPN, CMP ####[facility] Zsvbzbmlqj0935[address] [place], [place] [address]Dr. Yilan ChangGlobulin (S) [Mass/Vol]4.3 g/dLNormalThe [facility] SystemComment on above:Performed By: #### TSH, LIPA, HSTROPN, CMP ####[facility] Laxtruafar[address] [place] [address]Dr. Yilan ChangGLUC>500 Critically tslc68-253Gse [facility] SystemComment on above:Performed By: #### TSH, LIPA, HSTROPN, CMP ####[facility] Ruclfequbd260[address] [place] [address]Dr. Grace ChangPotassium [Moles/Vol]4.3 mmol/LNormal 3.5-5.1The [facility] SystemComment on above:Performed By: #### TSH, LIPA, HSTROPN, CMP ####[facility] Vjfryqgdbg12[address] [place] [address]Dr. Grace ChangProtein [Mass/Vol]8.1 g/dLNormal6.4-8.2The [facility] SystemComment on above:Performed By: #### TSH, LIPA, HSTROPN, CMP ####[facility] Lxkcrsojqq289[address] [place], [place] [address]Dr. Grace Best Sodium [Moles/Vol]136 mmol/VMbytil778-555Oho [facility] on above: Performed By: #### TSH, LIPA, HSTROPN, CMP ####[facility] Dvzcitxtxa3399[address] [place], [place] [address]Dr. Roxannelan ChangUrea nitrogen [Mass/Vol]28.0 mg/dLCritically high7.0-18.0[facility] on above:Performed By: #### TSH, LIPA, HSTROPN, CMP ####[facility] Dfxqujxifs063[address] [place], [place] [address]Dr. Roxannelan ChangUrea nitrogen/Creatinine [Mass ratio] 25.9 mg/mgNoMarietta Osteopathic ClinicComwalter p. reuther psychiatric hospital on above:Performed By: #### TSH, LIPA, HSTROPN, CMP ####[facility] Xojvfoppri[address] [place], [place] [address]Dr. Roxannecam ChangPROTIMEon 46-09-2681YZI Coag (PPP) [Relative time]{INR}NormalThe [facility] on above:Performed By: #### PT, PTT ####[facility] Hvktsvyafs725[address] [place], [place] [address]Dr. Grace BestINR GUIDELINESSEE BELOWTriHealthComwalter p. reuther psychiatric hospital on above: Result Comment: DESIRED INR: 2.0 - 3.0 CONDITIONS NOT LISTED BELOW 2.5 - 3.5 FOR PROSTHETIC HEART VALVE REPLACEMENT 2.5 - 3.5 RECURRENT THROMBOSISPerformed By: #### PT, PTT ####[facility] Svrfkkbdoz30[address] [place] [address]Dr. Grace NasirPT Coag (PPP) [Time]9.8 sNormal9.0-11.6The [facility] Comment on above:Performed By: #### PT, PTT ####[facility] Xllaaelyuz39[address] [place] [address]Dr. Grace BestPTTon 43-40-7302cSZP Coag (Bld) [Time]22.2 sCritically low22.3-36.2The [facility] SystemComment on above: Performed By: #### PT, PTT ####[facility] Qyabmufjpo4[address] [place] [address]Dr. Grace BestTROPONIN, HIGH SENSITIVITYon 03-29-2022 HSTROP8.7 pg/mLNormal4.0-51.3The [facility] SystemComment on above:Result Comment: CUT-OFF POINTS HAVE BEEN ESTABLISHED BASED ON THE FOURTH UNIVERSAL DEFINITIONS OF MYOCARDIALINFARCTION. THE UPPER REFERENCE LIMIT (URL) OF TROPONIN, DEFINED THE 99TH PERCENTILE OFcTnI DISTRIBUTION IN A REFERENCE POPULATION, HAS BEEN CONFIRMED THE DECISION THRESHOLDFOR [place] DIAGNOSIS. Performed By: #### TSH, LIPA, HSTROPN, CMP ####[facility] Qnkzvxqnpg058[address] [place], [place] [address]Dr. Grace BestTSHon 93-84-5354PRC9.435 uIU/mLNormal0.358-3.740The [facility] SystemComment on above:Performed By: #### TSH, LIPA, HSTROPN, CMP ####[facility] Rkgeswkeyh[address] [place] [address]Dr. Grace BestURINE MICROSCOPIC ONLYon 03-29-2022 BACTERIASMALLAbnormalNONE SEENThe [facility] SystemComment on above:Performed By: #### UMICRO, ERUR, DRUGRPD ####[facility] Xlzappwhkc[address] [place] [address]Dr. Yilan ChangBacteria identified Cx Nom (U)INDICATED NormalThe [facility] SystemComment on above:Performed By: #### VIOLETA GR, DRUGRPD ####[facility] Obbnuqymrf37[address] [place] [address]Dr. Grace ChangCASTNONE SEENNormalNONE SEENThe [facility] SystemComment on above:Performed By: #### VIOLETA GR, DRUGRPD ####[facility] Pwerlzduhf0[address] [place] [address]Dr. Grace BestCrystals LM Nom (Urine sed)SEENAbnormalNONE SEENThe [facility] SystemComment on above: Performed By: #### VIOLETA GR, DRUGRPD ####[facility] Lbuliytylg86[address] [place] [address]Dr. Grace ChangEpithelial cells LM Ql (Urine sed)FEWAbnormalNONE SEEN /RAREThe [facility] SystemComment on above:Performed By: #### VIOLETA GR, DRUGRPD ####[facility] Cltnpktbnr[address] [place], [place] [address]Dr. Grace ChangMUCOUSTRACEAbnormalNONE SEENThe [facility] SystemComwalter p. [facility] psychiatric hospital on above:Performed By: #### VIOLETA GR, DRUGRPD ####[facility] Suyvqiuajd[address] [place], [place] [address]Dr. Grace QjuidUXN4-6Djzcvk6-8Glu [facility] SystemComment on above:Performed By: #### VIOLETA GR, DRUGRPD ####[facility] Mbtxowtenk026[address] [place] [address]Dr. Grace ChangWBC5-10AbnormalNONE SEENOhio State University Wexner Medical CenterComment on above:Performed By: #### TEVIN GRR, DRUGRPD ####[facility] Tlyijszrih58[address] [place], [place] [address]Dr. Grace BestXR CHEST 1 Von 71-94-4142RX CHEST 1 VNormalThe [facility] AUTO DIFFon 63-99-6821UNFD #0.0 103/ulNormal0.0-0.1The [facility] SystemComment on above: Performed By: #### CBC ####[facility] Xvmnvjhkpk8213[address] [place], [place] [address]Dr.Roxannelan ChangBasophils/100 WBC (Bld)0.1 %Critically low0.2-2.0The [facility] SystemComment on above:Performed By: #### CBC ####[facility] Tnwgbzqsjc475[address] [place], [place] [address]Dr. Yilan ChangEO #0.0 103/ulNormal0.0-0.7The [facility] SystemComment on above: Performed By: #### CBC ####[facility] Ukrqbatlld364[address] [place], [place] [address]Dr.Roxannelan ChangEosinophils/100 WBC (Bld)0.0 %Critically low0.9-7.0The [facility] SystemComment on above:Performed By: #### CBC ####[facility] Vhwwcfjnnv559[address] [place], [place] [address]Dr. Grace ChangErythrocyte distribution width (RBC) [Ratio]14.5 %Uzmrqm48.0-15.0The [facility] SystemComment on above:Performed By: #### CBC ####[facility] Cvgluhvbrs[address] [place], [place] [address]Dr.Grace ChangHematocrit (Bld) [Volume fraction]34.0 %Critically low36.0-48.0The [facility] SystemComment on above:Performed By: #### CBC ####[facility] Ylarxelvmc4947[address] [place], [place] [address]Dr.Roxannelan ChangHemoglobin (Bld) [Mass/Vol]11.0 g/dL Critically low12.0-16.0The [facility] SystemComment on above:Performed By: #### CBC ####[facility] Fvfeerbewm37[address] [place], [place] [address]Dr. Roxannelan ChangIG #0.02 10e3/ulNormal0.00-0.03The [facility] SystemComment on above: Performed By: #### CBC ####[facility] Mnuahyyaeb6[address] [place] [address]Dr.Grace BestIG %0.2 %Normal0.0-0.5The [facility] SystemComment on above:Performed By: #### CBC ####[facility] Ljsdwkjtjt876[address] [place], [place] [address]Dr.Grace BestLYMPH #0.7 103/ulCritically low1.2-3.8The [facility] SystemComment on above:Performed By: #### CBC ####[facility] Kptbcottzj960[address] [place], [place] [address]Dr.Grace BestLymphocytes/100 WBC (Bld)9.2 %Critically low20.5-60.0The [facility] SystemComment on above:Performed By: #### CBC ####[facility] Qipntoaiog9430[address] [place], [place] [address]Dr.Grace BestMANUAL DIFF REQ NONormalThe [facility] SystemComment on above:Performed By: #### CBC ####[facility] Hokvkweaqa9200[address] [place], [place] [address]Dr. Grace BestH (RBC) [Entitic mass]29.6 ykWqowsq90.7-34.0The [facility] Comment on above:Performed By: #### CBC ####[facility] Jjhpytuykl6214[address] [place], [place] [address]Dr.Grace BestMCHC (RBC) [Mass/Vol]32.4 g/dL Shxmah93.9-35.2The [facility] SystemComment on above:Performed By: #### CBC ####[facility] Lbeirudito186[address] [place], [place] [address]Dr. Grace BestMCV (RBC) [Entitic vol]91.4 eHToayzc34.0-99.0The [facility] Comment on above:Performed By: #### CBC ####[facility] Wcfzcjnpfz036[address] [place], [place] [address]Dr.Grace BestMONO #0.6 103/ulNormal0.3-0.8 The [facility] SystemComment on above:Performed By: #### CBC ####[facility] Vvederditg3678 [place] [address]Dr.Grace Best Monocytes/100 WBC (Bld)7.2 %Normal1.7-12.0The [facility] SystemComment on above: Performed By: #### CBC ####[facility] Yofprdvaja3617 [place] [address]Dr.Grace BestNEUT #6.7 103/ulCritically high1.4-6.5 The [facility] SystemComment on above:Performed By: #### CBC ####[facility] Eqeepbmgre6064 [place] [address]Dr.Grace Best Neutrophils/100 WBC (Bld)83.3 %Critically high43.0-75.0The [facility] Comment on above:Performed By: #### CBC ####[facility] Pxdpzhkrxf2888[address] [place], [place] [address]Dr.Grace BestPlatelet mean volume (Bld) [Entitic vol]8.8 fLCritically low9.5-13.5The [facility] SystemComment on above: Performed By: #### CBC ####[facility] Cljxgocsoi05[address] [place], [place] [address]Dr.Grace HauomXFL710 103/agJsorjp822-533Lim [facility] SystemComment on above:Performed By: #### CBC ####[facility] Kuymlbvjxy755[address] [place], [place] [address]Dr.Grace BestRBC3.72 106/ul Critically low4.20-5.40The [facility] SystemComment on above:Performed By: #### CBC ####[facility] Jmbmpkarph1165[address] [place], [place] [address]Dr. Grace ChangWBC8.0 103/ulNormal4.0-11.0The [facility] SystemComment on above: Performed By: #### CBC ####[facility] Gzygzbuhzo207[address] [place], [place] [address]Dr.Grace BestBASO #0.0 103/ulNormal0.0-0.1The [facility] SystemComment on above:Performed By: #### CBC ####[facility] Rxocjkwqck2957 [place] [address]Dr.Yilan ChangBasophils/100 WBC (Bld)0.2 %Normal0.2-2.0The [facility] SystemComment on above:Performed By: #### CBC ####[facility] Armiiwseho980[address] [place], [place] [address]Dr.Yilan ChangEO #0.0 103/ulNormal0.0-0.7The [facility] SystemComment on above:Performed By: #### CBC ####[facility] Qqdgsifyzv343[address] [place], [place] [address]Dr.Yilan ChangEosinophils/100 WBC (Bld)0.0 %Critically low0.9-7.0The [facility] SystemComment on above:Performed By: #### CBC ####[facility] Ekcfanxzcd5867[address] [place], [place] [address]Dr. Yilan ChangErythrocyte distribution width (RBC) [Ratio]14.4 %Pvwoeq19.0-15.0The [facility] SystemComment on above:Performed By: #### CBC ####[facility] Nhehwjeubu23[address] [place], [place] [address]Dr.Yilan ChangHematocrit (Bld) [Volume fraction]39.4 %Mrimeb79.0-48.0The [facility] SystemComment on above:Performed By: #### CBC ####[facility] Sodnjcartv38[address] [place], [place] [address]Dr.Yilan ChangHemoglobin (Bld) [Mass/Vol]12.9 g/dL Yklgca61.0-16.0The [facility] SystemComment on above:Performed By: #### CBC ####[facility] Ltxpdhamvt290[address] [place], [place] [address]Dr. Yilan ChangIG #0.03 10e3/ulNormal0.00-0.03The [facility] SystemComment on above: Performed By: #### CBC ####[facility] Padmqwrrnd7[address] [place], [place] [address]Dr.Yilan ChangIG %0.3 %Normal0.0-0.5The [facility] SystemComment on above:Performed By: #### CBC ####[facility] Bbncjuimbq032[address] [place] [address]Dr.Grace BestLYMPH #0.8 103/ulCritically low1.2-3.8The [facility] SystemComment on above:Performed By: #### CBC ####[facility] Jvscbgcihz378[address] [place], [place] [address]Dr.Grace BestLymphocytes/100 WBC (Bld)7.7 %Critically low20.5-60.0The [facility] SystemComment on above:Performed By: #### CBC ####[facility] Ltwashxcco[address] [place], [place] [address]Dr.Grace NasirMANUAL DIFF REQ NONormalThe [facility] SystemComment on above:Performed By: #### CBC ####[facility] Pfwrlawmqh632[address] [place], [place] [address]Dr. Grace BestH (RBC) [Entitic mass]29.3 grDodlmn52.7-34.0The [facility] Comment on above:Performed By: #### CBC ####[facility] Jglvrudfgx07[address] [place], [place] [address]Dr.Grace NasirMCHC (RBC) [Mass/Vol]32.7 g/dL Qtvsjg79.9-35.2The [facility] SystemComment on above:Performed By: #### CBC ####[facility] Yxxhhluyvd525[address] [place], [place] [address]Dr. Grace BestV (RBC) [Entitic vol]89.3 sDOalocb53.0-99.0The [facility] Comment on above:Performed By: #### CBC ####[facility] Vsoolkvslk[address] [place], [place] [address]Dr.Roxannecam NasirMONO #0.5 103/ulNormal0.3-0.8 The [facility] SystemComment on above:Performed By: #### CBC ####[facility] Fpotomxrmr14[address] [place], [place] [address]Dr.Grace Best Monocytes/100 WBC (Bld)5.3 %Normal1.7-12.0The [facility] SystemComment on above: Performed By: #### CBC ####[facility] Lfwdwmzlgl[address] [place] [address]Dr.Grace BestNEUT #8.6 103/ulCritically high1.4-6.5 [facility] SystemComment on above:Performed By: #### CBC ####[facility] [address] [place], [place] [address]Dr.Grace Best Neutrophils/100 WBC (Bld)86.5 %Critically high43.0-75.0[facility] Comment on above:Performed By: #### CBC ####[facility] [address] [place], [place] [address]Dr.Grace BestPlatelet mean volume (Bld) [Entitic vol]8.6 fLCritically low9.5-13.5[facility] SystemComment on above: Performed By: #### CBC ####[facility] Ufqhixakrr[address] [place], [place] [address]Dr.Grace BestPLT466 103/ulCritically ztkj966-685Wcf [facility] SystemComment on above:Performed By: #### CBC ####[facility] Wdautmobkp3777[address] [place], [place] [address]Dr.Grace BestRBC4.41 106/ul Normal4.20-5.40The [facility] SystemComment on above:Performed By: #### CBC ####[facility] Ujxcsetopz4622[address] [place], [place] [address]Dr. Grace BestWBC10.0 103/ulNormal4.0-11.0The [facility] SystemComment on above: Performed By: #### CBC ####[facility] Qbxzusqnvr1385[address] [place], [place] [address]Dr.Grace BestCovid-19 PCR (CVDTB)on 03-09-2022 SARS-CoV-2 (COVID-19) RNA LOUISE+probe Ql (Unsp spec)DetectedCritically abnormalNOT DETECTEDThe [facility] SystemComment on above:Result Comment: This test is not yet approved or cleared by the [place] FDA. When there are no FDA-approved or cleared tests available, and other criteria are met, FDA can make tests available under an emergency access mechanism called an Emergency Use Authorization (EUA). The EUA for this test is supported by the [place] of Health and Human Service's declaration that circumstances exist to justify the emergency use of in vitro diagnostics for the detection and/or diagnosis of the virusthat causes COVID-19. This EUA will remain in effect for the duration of the COVID-19 declaration justifying emergency of IVDs, unless it is terminated or revoked by the FDA (after which the test mayno longer be used).Performed By: #### CVDTBH ####[facility] Ogjaumtble[address] [place], [place] [address]Dr. RoxannePhysicians Care Surgical Hospital GLUCOSEon 53-45-2026Cgvkhss [Mass/Vol]429 mg/dLCritically krsw70-908PvvOhio State University Wexner Medical CenterComment on above:Performed By: #### POCGLUC ####[facility] Pezwaofttd697[address] [place], [place] [address]Dr. Roxanneorthopaedic hospital of [facility] ChangGlucose [Mass/Vol]447 mg/dLCritically uatn42-825FvbOhio State University Wexner Medical CenterComment on above:Performed By: #### POCGLUC ####[facility] Leazrnzclm9032[address] [place], [place] [address]Dr. Roxannelan Best Glucose [Mass/Vol]169 mg/dLCritically lqbk97-286ZiqOhio State University Wexner Medical CenterComment on above:Performed By: #### POCGLUC ####[facility] Qqjehhfgwh009[address] [place], [place] [address]Dr. Yilan ChangGlucose [Mass/Vol]150 mg/dLCritically flst01-387SbkOhio State University Wexner Medical CenterComment on above:Performed By: #### POCGLUC ####[facility] Nswjzrjzml465[address] [place], [place] [address]Dr. Yilan ChangGlucose [Mass/Vol]149 mg/dLCritically diql36-661GjnOhio State University Wexner Medical Center Comment on above:Performed By: #### POCGLUC ####[facility] Czgcsxgawf127[address] [place], [place] [address]Dr. Yilan ChangGlucose [Mass/Vol]65 mg/dL Critically uxb35-115Vss [facility] SystemComment on above:Performed By: #### POCGLUC ####[facility] Nueqhhzrwd217[address] [place], [place] [address]Dr. Yilan ChangPROF 14(COMP METB)on 83-68-3537Kskjkzj [Mass/Vol]3.3 g/dL Critically low3.4-5.0The [facility] SystemComment on above:Performed By: #### CMP ####[facility] Tpioqrzrhp7567[address] [place], [place] [address]Dr. Grace ChangAlbumin/Globulin [Mass ratio]0.9 {ratio}NormalThe [facility] Comment on above:Performed By: #### CMP ####[facility] Kvkfobmxqp8888[address] [place], [place] [address]Dr.Grace ChangALP [Catalytic activity/Vol]79 U/BIfjrvy65-926Opf [facility] SystemComment on above:Performed By: #### CMP ####[facility] Ggsqwcatah686[address] [place], [place] [address]Dr. Grace ChangALT [Catalytic activity/Vol]16 U/VIdyipm50-11Tnv [facility] Comment on above:Performed By: #### CMP ####[facility] Lcqtlarqsg875[address] [place], [place] [address]Dr.Grace ChangAnion gap [Moles/Vol]6.9 mmol/LNormalThe [facility] SystemComment on above:Performed By: #### CMP ####[facility] Loqwihasai1840[address] [place], [place] [address]Dr. Roxannelan ChangAST [Catalytic activity/Vol]10 U/LCritically myc53-93Tru [facility] SystemComment on above:Performed By: #### CMP ####[facility] Twxtolbygp565[address] [place], [place] [address]Dr.Grace ChangBilirubin [Mass/Vol]0.4 mg/dLNormal0.2-1.0The [facility] SystemComment on above:Performed By: #### CMP ####[facility] Keripdqlvk645[address] [place], [place] [address]Dr.Roxannelan ChangCalcium [Mass/Vol]8.8 mg/dLNormal8.5-10.1The [facility] SystemComment on above:Performed By: #### CMP ####[facility] Zcsozmjuzk323[address] [place], [place] [address]Dr.Yilan ChangChloride [Moles/Vol]99 mmol/CBtspvu25-427Rmz [facility] SystemComment on above:Performed By: #### CMP ####[facility] Kglpfgykyc779[address] [place], [place] [address]Dr.Yilan ChangCO2 [Moles/Vol]33.0 mmol/LCritically high21.0-32.0The [facility] SystemComment on above:Performed By: #### CMP ####[facility] Tplajsjzsi835[address] [place], [place] [address]Dr.Yilan ChangCreatinine [Mass/Vol]0.63 mg/dLNormal0.55-1.02The [facility] SystemComment on above: Performed By: #### CMP ####[facility] Bprspqkkvh438[address] [place], [place] [address]Dr.Yilan ChangEGFR-AF TUNISIAN>60Normal>=60The [facility] SystemComment on above:Performed By: #### CMP ####[facility] Htttdmbvva90299[address] [place], [place] [address]Dr.Yilan ChangEGFR-NON AF TUNISIAN>60Normal>=60The [facility] SystemComment on above:Performed By: #### CMP ####[facility] Xdtmngjhkj377[address] [place], [place] [address]Dr. Yilan ChangGlobulin (S) [Mass/Vol]3.6 g/dLNormalThe [facility] SystemComment on above:Performed By: #### CMP ####[facility] Gsrhmmwciv546[address] [place], [place] [address]Dr.Yilan ChangGlucose [Mass/Vol]355 mg/dLCritically njff95-307Pcb [facility] SystemComment on above:Performed By: #### CMP ####[facility] Zxkywgjjha864[address] [place], [place] [address]Dr. Yilan ChangPotassium [Moles/Vol]3.9 mmol/LNormal3.5-5.1The [facility] Comment on above:Performed By: #### CMP ####[facility] Nouqqhxiwd7087[address] [place], [place] [address]Dr.Yilan ChangProtein [Mass/Vol]6.9 g/dL Normal6.4-8.2The [facility] SystemComment on above:Performed By: #### CMP ####[facility] Ghpefszayc868[address] [place], [place] [address]Dr. Yilan ChangSodium [Moles/Vol]135 mmol/LCritically cur985-376Lop [facility] SystemComment on above:Performed By: #### CMP ####[facility] Ebvenhcbcc9301[address] [place], [place] [address]Dr.Yilan ChangUrea nitrogen [Mass/Vol]14.0 mg/dLNormal7.0-18.0The [facility] SystemComment on above: Performed By: #### CMP ####[facility] Mrzjfubmtd0488[address] [place], [place] [address]Dr.Yilan ChangUrea nitrogen/Creatinine [Mass ratio] 22.2 mg/mgNormalThe [facility] SystemComment on above:Performed By: #### CMP ####[facility] Sutnefmmgk101[address] [place], [place] [address]Dr. Yilan ChangAlbumin [Mass/Vol]4.0 g/dLNormal3.4-5.0The [facility] SystemComment on above:Performed By: #### CMP ####[facility] Jrhuimhhkb548[address] [place], [place] [address]Dr.Yilan ChangAlbumin/Globulin [Mass ratio]0.9 {ratio} NormalThe [facility] SystemComment on above:Performed By: #### CMP ####[facility] Mwxqhdrtnc2948[address] [place], [place] [address]Dr.Yilan ChangALP [Catalytic activity/Vol]100 U/OFkxont07-475Tzj [facility] SystemComment on above:Performed By: #### CMP ####[facility] Rsgtyywspy9767[address] [place], [place] [address]Dr.Yilan ChangALT [Catalytic activity/Vol]19 U/LNormal 14-59The [facility] SystemComment on above:Performed By: #### CMP ####[facility] Yxfjaivydk8715[address] [place], [place] [address]Dr.Yilan ChangAnion gap [Moles/Vol]9.8 mmol/LNormalThe [facility] SystemComment on above:Performed By: #### CMP ####[facility] Qklnerrloo2318[address] [place], [place] [address]Dr.Yilan ChangAST [Catalytic activity/Vol]12 U/LCritically yod24-54Sth [facility] SystemComment on above:Performed By: #### CMP ####[facility] Tmkivhiuif6332[address] [place], [place] [address]Dr.Yilan ChangBilirubin [Mass/Vol]0.4 mg/dLNormal0.2-1.0The [facility] SystemComment on above:Performed By: #### CMP ####[facility] Roqhpwujth7790[address] [place], [place] [address]Dr.Yilan ChangCalcium [Mass/Vol]9.9 mg/dLNormal8.5-10.1The [facility] SystemComment on above:Performed By: #### CMP ####[facility] Kunghmrooz349[address] [place], [place] [address]Dr.Yilan ChangChloride [Moles/Vol]97 mmol/LCritically xqi95-188Srf [facility] SystemComment on above: Performed By: #### CMP ####[facility] Bixunkoomj154[address] [place], [place] [address]Dr.Yilan ChangCO2 [Moles/Vol]36.3 mmol/LCritically high21.0-32.0The [facility] SystemComment on above:Performed By: #### CMP ####[facility] Jsffxpelqe6488[address] [place], [place] [address]Dr. Yilan ChangCreatinine [Mass/Vol]0.64 mg/dLNormal0.55-1.02The [facility] Comment on above:Performed By: #### CMP ####[facility] [address] [place] [address]Dr.Yilan ChangEGFR-AF TUNISIAN>60Normal>=60 The [facility] SystemComment on above:Performed By: #### CMP ####[facility] Zorgedxhee270[address] [place], [place] [address]Dr.Yilan ChangEGFR- NON AF TUNISIAN>60Normal>=60The [facility] SystemComment on above:Performed By: #### CMP ####[facility] Dffetlwxng5860[address] [place], [place] [address]Dr.Yilan ChangGlobulin (S) [Mass/Vol]4.3 g/dLNormalThRiverview Health Institute Comment on above:Performed By: #### CMP ####[facility] Jhjvcwjriu6714[address] [place], [place] [address]Dr.Yilan ChangGlucose [Mass/Vol]72 mg/dL Critically hvj32-302Lhw [facility] SystemComment on above:Performed By: #### CMP ####[facility] Rsrfpjerws1465[address] [place], [place] [address]Dr. Yilan ChangPotassium [Moles/Vol]3.1 mmol/LCritically low3.5-5.1The [facility] SystemComment on above:Performed By: #### CMP ####[facility] Ilwcwvusaw848[address] [place], [place] [address]Dr.Yilan ChangProtein [Mass/Vol]8.3 g/dLCritically high6.4-8.2The [facility] SystemComment on above: Performed By: #### CMP ####[facility] Bqweemeqlb599[address] [place], [place] [address]Dr.Yilan ChangSodium [Moles/Vol]140 mmol/LNormal 136-145The [facility] SystemComment on above:Performed By: #### CMP ####[facility] Bdheosvczq1680[address] [place], [place] [address]Dr.Yilan ChangUrea nitrogen [Mass/Vol]21.0 mg/dLCritically high7.0-18.0The [facility] SystemComment on above:Performed By: #### CMP ####[facility] Vicchjunax360[address] [place], [place] [address]Dr.Yilan ChangUrea nitrogen/Creatinine [Mass ratio] 32.8 mg/mgNoMarietta Osteopathic ClinicComment on above:Performed By: #### CMP ####[facility] Mipgwsfpvp210[address] [place], [place] [address]Dr. Yilan ChangXR ABD FLAT UP_PA Raz [id number] ABD FLAT UP_PA [facility] CenterFollow Up (Endocrinology)on 04-19-4295Zoemhi Up (Endocrinology) No report was sentNormalUDuke Lifepoint [facility] AUTO DIFFon [id number] #0.0 103/ul Normal0.0-0.1[facility] Medical CenterComment on above:Performed By: #### CBC ####[facility] Iqswxwwigg758[address] [place], [place] [address]Dr. Yilan ChangBasophils/100 WBC (Bld)0.5 %Normal0.2-2.0The [facility] SystemComment on above:Performed By: #### CBC ####[facility] Xevkweaqcz3214[address] [place], [place] [address]Dr.Yilan ChangEO #0.0 103/ulNormal0.0-0.7The [facility] SystemComment on above:Performed By: #### CBC ####[facility] Mhdjvyuqpv769[address] [place], [place] [address]Dr.Yilan ChangEosinophils/100 WBC (Bld)0.3 %Critically low0.9-7.0The [facility] SystemComment on above: Performed By: #### CBC ####[facility] Fgkpbluufs265[address] [place], [place] [address]Dr.Yilan ChangErythrocyte distribution width (RBC) [Ratio]14.4 %Pusvib34.0-15.0The [facility] SystemComment on above:Performed By: #### CBC ####[facility] Qnochvitrh330[address] [place], [place] [address]Dr.Yilan ChangHematocrit (Bld) [Volume fraction]31.4 %Critically low 36.0-48.0The [facility] SystemComment on above:Performed By: #### CBC ####[facility] [address]phzvp[address] [place] [address]Dr. Grace ChangHemoglobin (Bld) [Mass/Vol]10.4 g/dLCritically low12.0-16.0The [facility] SystemComment on above:Performed By: #### CBC ####[facility] Uljyxwipxw8700[address] [place], [place] [address]Dr.Roxannelan ChangIG #0.01 10e3/ulNormal0.00-0.03The [facility] SystemComment on above:Performed By: #### CBC ####[facility] Raeglihsnl734[address] [place], [place] [address]Dr. Grace ChangIG %0.1 %Normal0.0-0.5The [facility] SystemComment on above:Performed By: #### CBC ####[facility] Ibepogtpqw617[address] [place], [place] [address]Dr.Grace ChangLYMPH #1.3 103/ulNormal1.2-3.8The [facility] Comment on above:Performed By: #### CBC ####[facility] Lxmrsvqikt736[address] [place], [place] [address]Dr.Roxannecam BestLymphocytes/100 WBC (Bld)17.9 %Critically low20.5-60.0The [facility] SystemComment on above:Performed By: #### CBC ####[facility] Tcpmpvfapd0214[address] [place], [place] [address]Dr.Roxannecam NasirMANUAL DIFF REQNONormalThe Troup HospitalComment on above: Performed By: #### CBC ####[facility] Egtiaxqhqn155[address] [place], [place] [address]Dr.Grace BestMCH (RBC) [Entitic mass]29.5 pgNormal 26.7-34.0The [facility] SystemComment on above:Performed By: #### CBC ####[facility] Bpsexixray825[address] [place], [place] [address]Dr. Grace BestMCHC (RBC) [Mass/Vol]33.1 g/nIOnwvxj07.9-35.2The [facility] Comment on above:Performed By: #### CBC ####[facility] Iinoraehmo8701[address] [place], [place] [address]Dr.Grace BestMCV (RBC) [Entitic vol]89.0 fL Ktiequ68.0-99.0The [facility] SystemComment on above:Performed By: #### CBC ####[facility] Hxatacsrqv854[address] [place], [place] [address]Dr. Grace ChangMONO #0.6 103/ulNormal0.3-0.8The Troup HospitalComment on above: Performed By: #### CBC ####[facility] Cmwcujrgbb1722[address] [place], [place] [address]Dr.Grace ChangMonocytes/100 WBC (Bld)7.7 %Normal 1.7-12.0The [facility] SystemComment on above:Performed By: #### CBC ####[facility] Xcbdanwbni747692 [address] [place], [place] [address]Dr. Grace ChangNEUT #5.4 103/ulNormal1.4-6.5The [facility] SystemComment on above: Performed By: #### CBC ####[facility] Mqvjqbqbpv4264[address] [place], [place] [address]Dr.Grace ChangNeutrophils/100 WBC (Bld)73.5 %Normal 43.0-75.0The [facility] SystemComment on above:Performed By: #### CBC ####[facility] Ufymzajofr4938[address] [place], [place] [address]Dr. Grace BestPlatelet mean volume (Bld) [Entitic vol]8.9 fLCritically low9.5-13.5 The [facility] SystemComment on above:Performed By: #### CBC ####[facility] Camhkopwdy201[address] [place], [place] [address]Dr.Roxannecam EjwwlSUQ663 103/ulCritically ktzm856-697Qfl [facility] SystemComment on above:Performed By: #### CBC ####[facility] Xktgwqozzf7913[address] [place], [place] [address]Dr.Yilan ChangRBC3.53 106/ulCritically low4.20-5.40[facility] Comment on above:Performed By: #### CBC ####[facility] Dxwlzqdvmr4[address] [place] [address]Dr.Grace BestWBC7.4 103/ulNormal4.0-11.0[facility] CenterComment on above:Performed By: #### CBC ####[facility] Lzosdwjaju807[address] [place], [place] [address]Dr.Grace ChangCT ABD/PELV W CONon 62-17-4924WK ABD/PELV W CONNormalOhio State University Wexner Medical CenterPROF 14(COMP METB)on 06-41-9567Rhzlqct [Mass/Vol]3.1 g/dLCritically low3.4-5.0The [facility] Comment on above:Performed By: #### CMP ####[facility] Xmutfkbuzz597[address] [place], [place] [address]Dr.Grace ChangAlbumin/Globulin [Mass ratio] 0.8 {ratio}NormalThe [facility] SystemComment on above:Performed By: #### CMP ####[facility] Ktlmqlqfvc429[address] [place], [place] [address]Dr. Grace BestALP [Catalytic activity/Vol]95 U/WGzhpfk47-792Xun [facility] Comment on above:Performed By: #### CMP ####[facility] Byrqlppvdy1900[address] [place], [place] [address]Dr.Grace BestALT [Catalytic activity/Vol]12 U/LCritically uhf24-58Zaq [facility] SystemComment on above:Performed By: #### CMP ####[facility] Cyanwxjlgs5280[address] [place], [place] [address]Dr. Grace BestAnion gap [Moles/Vol]8.8 mmol/LNormalThe [facility] SystemComment on above:Performed By: #### CMP ####[facility] Nirzmbwjvg837[address] [place], [place] [address]Dr.Grace ChangAST [Catalytic activity/Vol]7 U/L Critically gnz23-31Ilb [facility] SystemComment on above:Performed By: #### CMP ####[facility] Dccwrklveq[address] [place] [address]Dr. Yilan ChangBilirubin [Mass/Vol]0.2 mg/dLNormal0.2-1.0The [facility] Comment on above:Performed By: #### CMP ####[facility] Jvgoapkoor2040[address] [place], [place] [address]Dr.Yilan ChangCalcium [Mass/Vol]8.5 mg/dL Normal8.5-10.1The [facility] SystemComment on above:Performed By: #### CMP ####[facility] Vpqouztpnj612[address] [place], [place] [address]Dr. Yilan ChangChloride [Moles/Vol]96 mmol/LCritically bex47-584Psd [facility] SystemComment on above:Performed By: #### CMP ####[facility] Vlizsrxcjb046[address] [place], [place] [address]Dr.Yilan ChangCO2 [Moles/Vol] 24.8 mmol/SDroswn43.0-32.0The [facility] SystemComment on above:Performed By: #### CMP ####[facility] Bjehnlqfdd505[address] [place], [place] [address]Dr.Yilan ChangCreatinine [Mass/Vol]0.63 mg/dLNormal0.55-1.02The [facility] SystemComment on above:Performed By: #### CMP ####[facility] Pyforyqhry617[address] [place], [place] [address]Dr.Yilan ChangEGFR-AF TUNISIAN>60Normal>=60The [facility] SystemComment on above:Performed By: #### CMP ####[facility] Klqncjebqi1635[address] [place], [place] [address]Dr. Yilan ChangEGFR-NON AF TUNISIAN>60Normal>=60The [facility] SystemComment on above:Performed By: #### CMP ####[facility] Knqkxwdgak7077[address] [place], [place] [address]Dr.Yilan ChangGlobulin (S) [Mass/Vol]3.7 g/dLNormalThe [facility] SystemComment on above:Performed By: #### CMP ####[facility] Svwdazyilz[address] [place] [address]Dr.Grace ChangGlucose [Mass/Vol]201 mg/dLCritically mooq14-178Pqw [facility] SystemComment on above: Performed By: #### CMP ####[facility] Wfuloizpsz[address] [place] [address]Dr.Grace ChangPotassium [Moles/Vol]3.6 mmol/LNormal 3.5-5.1The [facility] SystemComment on above:Performed By: #### CMP ####[facility] Uqyrbudiqh0570[address] [place], [place] [address]Dr.Grace Best Protein [Mass/Vol]6.8 g/dLNormal6.4-8.2The [facility] SystemComment on above: Performed By: #### CMP ####[facility] Xnrlljrsby8312[address] [place], [place] [address]Dr.Grace ChangSodium [Moles/Vol]126 mmol/LCritically yph942-783Ycb [facility] SystemComment on above:Performed By: #### CMP ####[facility] Jpvxxphsjv517[address] [place], [place] [address]Dr. Grace ChangUrea nitrogen [Mass/Vol]19.0 mg/dLCritically high7.0-18.0[facility] CenterComment on above:Performed By: #### CMP ####[facility] Zfivztonxl865[address] [place], [place] [address]Dr.Grace ChangUrea nitrogen/Creatinine [Mass ratio]30.2 mg/mgNoMarietta Osteopathic ClinicComment on above:Performed By: #### CMP ####[facility] Alfyzpztrb7423[address] [place], [place] [address]Dr.Grace ChangPROTIMEon 56-18-3368TZU Coag (PPP) [Relative time]0.96 {INR}NormalThe [facility] SystemComment on above:Performed By: #### PTT, PT ####[facility] Iyckyovmci585[address] [place], [place] [address]Dr. Grace ChangINR GUIDELINESSEE BELOWTriHealth Comment on above:Result Comment: DESIRED INR: 2.0 - 3.0 CONDITIONS NOT LISTED BELOW 2.5 - 3.5 FOR PROSTHETIC HEART VALVE REPLACEMENT 2.5 - 3.5 RECURRENT THROMBOSISPerformed By: #### PTT, PT ####[facility] Jpxdbytsfm75549[address] [place], [place] [address]Dr. Grace BestPT Coag (PPP) [Time]10.4 sNormal 9.0-11.6The [facility] SystemComment on above:Performed By: #### PTT, PT ####[facility] Ncazwxcdcf3628[address] [place], [place] [address]Dr. Grace ChangPTTon 94-29-9755rSOH Coag (Bld) [Time]29.7 qYbbrqp67.3-36.2The [facility] SystemComment on above:Performed By: #### PTT, PT ####[facility] Ccjiucdksa7844[address] [place], [place] [address]Dr. Grace BestCBC AUTO DIFFon 71-23-6540LFRE #0.1 103/ulNormal0.0-0.1The [facility] SystemComment on above:Performed By: #### CBC ####[facility] Pxnmjwmtpl154[address] [place], [place] [address]Dr.Grace ChangBasophils/100 WBC (Bld)0.7 %Normal 0.2-2.0The [facility] SystemComment on above:Performed By: #### CBC ####[facility] Dqtiluanec374[address] [place], [place] [address]Dr.Roxannelan ChangEO # 0.1 103/ulNormal0.0-0.7The [facility] SystemComment on above:Performed By: #### CBC ####[facility] Bodbnqnwie427[address] [place], [place] [address]Dr. Grace ChangEosinophils/100 WBC (Bld)1.3 %Normal0.9-7.0The [facility] Comment on above:Performed By: #### CBC ####[facility] Rncpecdmnr145[address] [place], [place] [address]Dr.Grace ChangErythrocyte distribution width (RBC) [Ratio]17.5 %Critically high11.0-15.0The [facility] SystemComment on above:Performed By: #### CBC ####[facility] Vuektkbuag0630[address] [place], [place] [address]Dr.Grace BestHematocrit (Bld) [Volume fraction]32.7 % Critically low36.0-48.0The Troup HospitalComment on above:Performed By: #### CBC ####[facility] Dzjmrajwib2487[address] [place], [place] [address]Dr. Grace BestHemoglobin (Bld) [Mass/Vol]10.3 g/dLCritically low12.0-16.0The [facility] SystemComment on above:Performed By: #### CBC ####[facility] Tgaodleius674[address] [place], [place] [address]Dr.Grace ChangIG #0.03 10e3/ulNormal0.00-0.03The [facility] SystemComment on above:Performed By: #### CBC ####[facility] Jdspnfgsrl197[address] [place], [place] [address]Dr. Grace ChangIG %0.4 %Normal0.0-0.5The [facility] SystemComment on above:Performed By: #### CBC ####[facility] Iftjmrqzpl715[address] [place], [place] [address]Dr.Grace BestLYMPH #1.2 103/ulNormal1.2-3.8The [facility] Comment on above:Performed By: #### CBC ####[facility] Kkqnxivtfi307[address] [place], [place] [address]Dr.Grace BestLymphocytes/100 WBC (Bld)15.8 %Critically low20.5-60.0The [facility] SystemComment on above:Performed By: #### CBC ####[facility] Vwbsaktgfx658[address] [place], [place] [address]Dr.Grace BestMANUAL DIFF REQNONormalThe [facility] SystemComment on above: Performed By: #### CBC ####[facility] Djwccguxzl637[address] [place], [place] [address]Dr.Grace BestMCH (RBC) [Entitic mass]30.0 pgNormal 26.7-34.0The [facility] SystemComment on above:Performed By: #### CBC ####[facility] Vmtrgwxhiy6[address] [place] [address]Dr. Grace BestHC (RBC) [Mass/Vol]31.5 g/jXPxtfex18.9-35.2The [facility] Comment on above:Performed By: #### CBC ####[facility] Axtrxhioyv90[address] [place] [address]Dr.Grace BestV (RBC) [Entitic vol]95.3 fL Jpajrp47.0-99.0The [facility] SystemComment on above:Performed By: #### CBC ####[facility] Jqonxygcrm499[address] [place], [place] [address]Dr. Grace BestMONO #0.6 103/ulNormal0.3-0.8The [facility] SystemComment on above: Performed By: #### CBC ####[facility] Tkfiqvmiil633[address] [place], [place] [address]Dr.Grace BestMonocytes/100 WBC (Bld)7.5 %Normal 1.7-12.0The [facility] SystemComment on above:Performed By: #### CBC ####[facility] Mkwclowjic3530[address] [place], [place] [address]Dr. Grace BestNEUT #5.6 103/ulNormal1.4-6.5The [facility] SystemComment on above: Performed By: #### CBC ####[facility] Klpgsbukum973[address] [place], [place] [address]Dr.Grace BestNeutrophils/100 WBC (Bld)74.3 %Normal 43.0-75.0The [facility] SystemComment on above:Performed By: #### CBC ####[facility] Vpmfbbwule864[address] [address] [place], [place] [address]Dr. Grace BestPlatelet mean volume (Bld) [Entitic vol]8.2 fLCritically low9.5-13.5 The [facility] Health SystemComment on above:Performed By: #### CBC ####[facility] [address] [place] [address]Dr.Grace LbwioKIE176 103/ulCritically bxin541-631Vmx [facility] SystemComment on above:Performed By: #### CBC ####[facility] [address]ivjfsvz[address] [place] [address]Dr.Grace ChangRBC3.43 106/ulCritically low4.20-5.40[facility] Comment on above:Performed By: #### CBC ####[facility] Xgeqddsawd[address] [place], [place] [address]Dr.Grace ChangWBC7.6 103/ulNormal4.0-11.0The [facility] SystemComment on above:Performed By: #### CBC ####[facility] Nfrueyfvbu[address] [place], [place] [address]Dr.Roxannecam ChangCRPon 60-56-7571FBZ2.6 mg/dLCritically high<=1.0The [facility] Health SystemComment on above: Performed By: #### BMP, CRP ####[facility] Ombjzrutew[address] [place], [place] [address]Dr. Yilan ChangCT CSPINE WO CONon 74-50-0005PE CSPINE WO CONNormalThe [facility] Health SystemCT LSPINE WO CONon 87-43-2767CS LSPINE WO CON NormalThe [facility] Health SystemCT TSPINE WO CONon 53-74-4887LO TSPINE WO CONNormal The [facility] SystemPROF CHEM 8 (BAS METB)on 22-62-8877Zrrix gap [Moles/Vol] 10.9 mmol/LNormalThe [facility] Health SystemComment on above:Performed By: #### BMP, CRP ####[facility] Zmyibzkzni[address] [place], [place] [address]Dr. Roxannecam ChangCalcium [Mass/Vol]9.2 mg/dLNormal8.5-10.1[facility] Comment on above:Performed By: #### BMP, CRP ####[facility] Pfncvikjyg[address] [place], [place] [address]Dr. Grace ChangChloride [Moles/Vol]100 mmol/PRldhke41-914Zhr [facility] SystemComment on above:Performed By: #### BMP, CRP ####[facility] Dbaihtzxzu44[address] [place], [place] [address]Dr. Yilan ChangCO2 [Moles/Vol]27.3 mmol/LNormal 21.0-32.0The [facility] SystemComment on above:Performed By: #### BMP, CRP ####[facility] Vrrozfihai[address] [place], [place] [address]Dr. Yilan ChangCreatinine [Mass/Vol]0.68 mg/dLNormal0.55-1.02[facility] Comment on above:Performed By: #### BMP, CRP ####[facility] Povbvvgzig213[address] [place], [place] [address]Dr. Yilan ChangEGFR-AF TUNISIAN>60Normal>=60The [facility] SystemComment on above:Performed By: #### BMP, CRP ####[facility] Dgxrrzdask[address] [place], [place] [address]Dr. Yilan ChangEGFR-NON AF TUNISIAN>60Normal>=60[facility] Comment on above:Performed By: #### BMP, CRP ####[facility] Qyrlzhbmqp89[address] [place], [place] [address]Dr. Grace ChangGlucose [Mass/Vol]85 mg/lORrpuzp72-910Jot [facility] SystemComment on above:Performed By: #### BMP, CRP ####[facility] Vhpnppayuf347[address] [place], [place] [address]Dr. Roxannelan ChangPotassium [Moles/Vol]4.2 mmol/LNormal3.5-5.1The [facility] SystemComment on above:Performed By: #### BMP, CRP ####[facility] Fsaumqkibt[address] [place], [place] [address]Dr. Roxannelan Best Sodium [Moles/Vol]134 mmol/LCritically lez553-894Qhu [facility] SystemComment on above:Performed By: #### BMP, CRP ####[facility] Qujzeavmid40[address] Main StreetBellevue, [place] [address]Aj. Yilan ChangUrea nitrogen [Mass/Vol]17.0 mg/dL Normal7.0-18.0The [facility] SystemComment on above:Performed By: #### BMP, CRP ####[facility] Viavjsduqs18[address] [place], [place] [address]Fb. Yilan ChangUrea nitrogen/Creatinine [Mass ratio]25.0 mg/mgNormalThe [facility] Health SystemComment on above:Performed By: #### BMP, CRP ####[facility] Z[address]ywhp[address] [place] [address]Dr. Yilan ChangSED RATE WESTERGRENon 82-84-9142RLI RATE78 mm/hrCritically high<=30The [facility] Comment on above:Performed By: #### SEDR ####[facility] [address]ptkzht[address] [place] [address]Dr. Yilan ChangAutomated erythrocytes count in urine sediment (number/area)Ordered By: Nirav Huerta on 85-24-6745SWO Auto (Urine sed) [#/Area]3-4 [HPF]0-4FLancaster Municipal HospitalAutomated leukocytes count in urine sediment (number/area)Ordered By: Nirav Huerta on 31-04-3576FAJ Auto (Urine sed) [#/Area]10-19 [HPF]0-4FLancaster Municipal HospitalBasophils Auto (Bld) [#/Vol]Ordered By: Nirav Huerta on 01-08-2022 Basophils (Bld) [#/Vol]0.1 10*3/uL0.0-0.2FLancaster Municipal Hospital Basophils/100 WBC Auto (Bld)Ordered By: Nirav Huerta on 25-39-9445Jvrrthcfa/100 WBC (Bld)0.8 %.[facility] City HospitalBeta-hydroxybutyric acid measurementOrdered By: Jayashree Watts on 04-17-2896Ifij hydroxybutyrate [Mass/Vol]8.19 mmol/L0.05-0.27T[facility] City HospitalBilirubin Test strip Ql (U)Ordered By: Nirav Huerta on 80-39-7953Ecoodwrng Ql (U)Negative NegativeTwin City HospitalBlood hemoglobin measurement (mass/volume)Ordered By: Nirav Huerta on 89-58-2894Nateqvjqas (Bld) [Mass/Vol] 9.0 g/dL11.8-15.4FLancaster Municipal HospitalBlood leukocytes automated count (number/volume)Ordered By: Nirav Huerta on 40-82-3630KHZ (Bld) [#/Vol] 13.6 10*3/uL4.5-11.0[facility] HospitalBody fluid albumin measurement (mass/volume)Ordered By: Nirav Huerta on 41-85-8267Rgnpjur (Body fld) [Mass/Vol]2.9 g/dL3.2-5.5FLancaster Municipal HospitalCOVID-19 Positive/NegativeOrdered By: Raul Montez on 79-82-8912QCBL-CoV-2 (COVID-19) N gene LOUISE+probe Ql (Resp)NegativeNegativeTwin City HospitalComment on above:Testing for SARS-CoV-2 by RT-PCR This test was developed and its performance characteristics determined by [employer] ([employer]) and validated at the [facility]. This test has not been FDA [...] of time the declaration that circumstances exist ju stifying the authorization of the emergency use of in vitro diagnostic tests for detection of SARS-CoV-2 virus and/or diagnosis of COVID-19 infection under section 564(b)(1) of the Act, 21 U.S.C. 360bbb-3(b)(1), unless the authorization is terminated or revoked sooner.COVID-19 SOFIAOrdered By: Nirav Salinaston on 14-00-6326ILTO-CoV+SARS-CoV-2 (COVID-19) Ag IA.rapid Ql (Resp)NegativeNegative [facility] HospitalComment on above:This is a duplicate Nina SARS Antigen (NAPOLEON) result to be used for statistical tracking purpose only.Color Auto (U)Ordered By: Nirav Huerta on 08-76-0448Wtfzx (U)YellowYellowTwin City HospitalCreatinine and Glomerular filtration rate.predicted panel (S/P/Bld)Ordered By: Jayashree Watts on 41-72-1167Ofymjxdwlt [Mass/Vol]0.90 mg/dL0.44-1.03[facility] HospitalComment on above:Delta: 1.41 on 01/08/22-1631Eosinophils Auto (Bld) [#/Vol]Ordered By: Nirav Huerta on 31-28-0625Psoqnaucisj (Bld) [#/Vol]0.0 10*3/uL0.0-0.45T[facility] HospitalEosinophils/100 WBC Auto (Bld)Ordered By: Nirav Huerta on 01-08-2022 Eosinophils/100 WBC (Bld)0.2 %.[facility] HospitalErythrocyte distribution width Auto (RBC) [Ratio]Ordered By: Nirav Huerta on 01-08-2022 Erythrocyte distribution width (RBC) [Ratio]17.4 %11.9-15.3FLancaster Municipal HospitalEstimated glomerular filtration rate (GFR) non- Ordered By: Jayashree Watts on 43-40-2508ZZQ/1.73 sq M.predicted among non- blacks MDRD (S/P/Bld) [Vol rate/Area]> 60 mL/MinTwin City HospitalGlobulin Calc (S) [Mass/Vol]Ordered By: Nirav Huerta on 01-08-2022 Globulin (S) [Mass/Vol]3.6 g/dLTwin City HospitalGlucose Glucometer (BldC) [Mass/Vol]Ordered By: Jayashree Watts on 54-61-3630Dnqfdet [Mass/Vol]224 mg/dLTwin City HospitalComment on above:Random Glucose Reference Range is dependent on time and content of last meal. Glucose of more than 200 mg/dL in a nonstressed, ambulatory subject supports the diagnosis of Diabetes Mellitus.HCG ( test) IA.rapid Ql (U)Ordered By: Jayashree Watts on 62-28-5322BRW ( test) Ql (U)NegativeTwin City HospitalHematocrit Auto (Bld) [Volume fraction]Ordered By: Nirav Huerta on 51-22-9015Jjinwchjts (Bld) [Volume fraction]28.3 %34.0-46.4FLancaster Municipal HospitalKetones Auto test strip (U) [Mass/Vol]Ordered By: Nirav Huerta on 62-45-8603Ubvyliz (U) [Mass/Vol]TraceNegativeTwin City HospitalLaboratory - Chemistry and Chemistry - challengeOrdered By: Jayashree Watts on 57-22-1295Ctdwftzja [Mass/Vol]2.1 mg/dL1.6-2.6FLancaster Municipal HospitalCO2 [Moles/Vol]8.4 mmol/L24.0-29.0T[facility] HospitalHCO3 (Bld) [Moles/Vol]7.6 mmol/L23.0-29.0[facility] Laboratory - Chemistry and Chemistry - challengeOrdered By: Nirav Huerta on 37-71-6486Oevtms [Catalytic activity/Vol]20.0 U/F94-45GvghoupraTwin City HospitalLaboratory - Hematology and Cell countsOrdered By: Nirav Hureta on 67-52-3025Chmldkfmh RBC/100 WBC (Bld) [Ratio]0.0 %0-0.5FLancaster Municipal HospitalLaboratory - UrinalysisOrdered By: Nirav Huerta on 01-08-2022 Hyaline casts LM Ql (Urine sed)0-8 [LPF]0-8[facility] Lymphocytes Auto (Bld) [#/Vol]Ordered By: Nirav Huerta on 03-85-1860Utzdkyapzgw (Bld) [#/Vol]1.2 10*3/uL1.00-4.8[facility] Lymphocytes/100 WBC Auto (Bld)Ordered By: Nirav Huerta on 01-08-2022 Lymphocytes/100 WBC (Bld)8.6 %.[facility] Auto (RBC) [Entitic mass]Ordered By: Nirav Huerta on 99-58-9112UQE (RBC) [Entitic mass] 28.2 pg24.7-34.3FLancaster Municipal HospitalMCHC Auto (RBC) [Mass/Vol] Ordered By: Nirav Huerta on 18-35-2882LFNN (RBC) [Mass/Vol]31.8 g/dL32.0-35.0 [facility] HospitalMCV Auto (RBC) [Entitic vol]Ordered By: Nirav Huetra on 46-84-1743ZZW (RBC) [Entitic vol]88.5 hY77-304EnxglofyjTwin City HospitalMonocytes Auto (Bld) [#/Vol]Ordered By: Nirav Huerta on 62-60-7909Ecryoexkq (Bld) [#/Vol]1.0 10*3/uL0.0-0.8T[facility] HospitalMonocytes/100 WBC Auto (Bld)Ordered By: Nirav Huerta on 01-08-2022 Monocytes/100 WBC (Bld)7.2 %.[facility] HospitalNeutrophils Auto (Bld) [#/Vol]Ordered By: Nirav Huerta on 07-32-3219Mcwjlcgiztl (Bld) [#/Vol] 11.3 10*3/uL1.8-7.7FLancaster Municipal HospitalNeutrophils/100 WBC Auto (Bld)Ordered By: Nirav Huerta on 60-92-9829Srahxtouldp/100 WBC (Bld)83.2 %. [facility] HospitalNitrite Test strip Ql (U)Ordered By: Nirav Huerta on 04-23-6373Nhmjbsn Ql (U)NegativeNegativeTwin City HospitalNo Panel InformationOrdered By: Jayashree Watts on 50-54-3107Ztcrwizlv GFR ()> 60 mL/MinTwin City HospitalComment on above: GFR estimated reference range: According to KDOQI guidelines, <60 ml/min/1.73m2 is sufficient todiagnose a patient with chronic kidney disease.Pharmacy Creatinine Clearance (Chem62.10[facility] HospitalBlood Gas Critical ValueSee commentTwin City HospitalComment on above: Critical Value called on: 01/08/2022 at 15:42Blood Gas Sample SiteVenous [facility] HospitalFiO2Na %[facility] City HospitalVenous Blood Base Excess-20.2 mmol/L-3.0-3.0[facility] HospitalVenous Blood Oxygen Content3.1 mmol/L6.6-9.7FLancaster Municipal HospitalVenous Blood Oxygen Qkbuchqxrr20.7 %73.0-76.0T[facility] HospitalVenous Blood Partial Pressure CO224.5 mm[Hg]38.0-50.0[facility] Venous Blood Partial Pressure O234.6 mm[Hg]35.0-45.0[facility] HospitalVenous Blood pH7.117.32-7.43T[facility] HospitalNo Panel InformationOrdered By: Nirav Huerta on 04-97-0888Tmhjtwz Glucose #2 Comment Cleaned meterTwin City HospitalBedside Glucose CommentSee comment [facility] HospitalComment on above:Glu2: WILL NOTIFY DR/RNSARS Antigen (LFIA)[facility] HospitalPhosphate [Mass/volume] in Serum or PlasmaOrdered By: Nirav Huerta on 36-48-4132Ayaypchlz [Mass/Vol]2.7 mg/dL 2.5-4.6FLancaster Municipal HospitalPlatelet mean volume Auto (Bld) [Entitic vol]Ordered By: Nirav Huerta on 51-58-3427Dasgyxqh mean volume (Bld) [Entitic vol]7.0 fL6.3-10.7FLancaster Municipal HospitalPlatelets Auto (Bld) [#/Vol] Ordered By: Nirav Huerta on 76-91-5655Stabdoqav (Bld) [#/Vol]751 10*3/rK614-249 [facility] HospitalProtein Auto test strip (U) [Mass/Vol]Ordered By: Nirav Huerta on 84-80-3592Ioseuns (U) [Mass/Vol]30 mg/dLNegativeTwin City HospitalProtein [Mass/volume] in Serum or PlasmaOrdered By: Nirav Huerta on 02-38-3117Xjiquso [Mass/Vol]6.5 g/dL6.1-7.9T[facility] HospitalRBC Auto (Bld) [#/Vol]Ordered By: Nirav Huerta on 38-25-7081ZQB (Bld) [#/Vol]3.19 10*6/uL3.60-5.00Peoples Hospitalerum or plasma alanine aminotransferase measurement without P-5'-P (enzymatic activi Ordered By: Nirav Huerta on 81-41-2360SVF No additional P-5'-P [Catalytic activity/Vol]19 U/A77-91WnhataqayPeoples Hospitalerum or plasma albumin/globulin mass ratioOrdered By: Nirav Huerta on 01-08-2022 Albumin/Globulin [Mass ratio]0.8 {ratio}Peoples Hospitalerum or plasma alkaline phosphatase measurement (enzymatic activity/volume)Ordered By: Nirav Huerta on 45-84-7172KOO [Catalytic activity/Vol]92 U/T26-70AgvobvovvPeoples Hospitalerum or plasma anion gap determinationOrdered By: Jayashree Watts on 31-15-1105Ljlsp gap [Moles/Vol]12.3 mmol/L6.0-15.0Peoples Hospitalerum or plasma aspartate aminotransferase measurement (enzymatic activity/volume)Ordered By: Nirav Huerta on 27-37-6705NGO [Catalytic activity/Vol]17 U/V88-79MyspmufaxPeoples Hospitalerum or plasma calcium measurement (mass/volume)Ordered By: Jayashree Watts on 01-08-2022 Calcium [Mass/Vol]8.7 mg/dL8.2-10.2FTriHealtherum or plasma chloride measurement (moles/volume)Ordered By: Jayashree Watts on 64-70-5766Qkyvtcdp [Moles/Vol]113 mmol/Y55-306GpkrdzttrTwin City Hospital Serum or plasma glucose measurement (mass/volume)Ordered By: Jayashree Watts on 87-62-7901Htzileq [Mass/Vol]267 mg/nE12-058CstjqwtftTwin City Hospital Comment on above:Delta: 823 on 01/08/22-1631 ADA recommended reference range Random Glucose Reference Range is dependent on time and content of last meal. Glucose of more than 200 mg/dL in a nonstressed, ambulatory subject supports the diagnosis of Diabetes Mellitus.Serum or plasma potassium measurement (moles/volume)Ordered By: Jayashree Watts on 45-79-4211Jlhjdxbmz [Moles/Vol]4.1 mmol/L3.5-5.1FTriHealtherum or plasma sodium measurement (moles/volume)Ordered By: Jayashree Watts on 83-54-1017Aestub [Moles/Vol]140 mmol/M179-757MhwzpnuvfTwin City HospitalComment on above:Delta: 132 on 01/08/22-1631Serum or plasma total bilirubin measurement (mass/volume)Ordered By: Nirav Huerta on 42-94-8849Yayfdaxdn [Mass/Vol]0.6 mg/dL0.3-1.2FTriHealtherum or plasma total carbon dioxide measurement (moles/volume)Ordered By: Jayashree Watts on 78-87-0279LA1 [Moles/Vol]18.8 mmol/L22.0-30.0Peoples Hospitalerum or plasma urea nitrogen measurement (mass/volume)Ordered By: Jayashree Watts on 10-83-7397Vzcj nitrogen [Mass/Vol]18 mg/dL9-23Peoples Hospitalpecific gravity Auto test strip (U) [Rel density]Ordered By: Nirav Huerta on 78-62-6131Mlmgxmmy gravity (U) [Rel density]1.0111.001-1.030[facility] Squamous epithelial cells detection in urine sediment by light microscopyOrdered By: Nirav Huerta on 96-73-5776Ildnyopbbg cells.squamous LM Ql (Urine sed)0-1 [HPF]0-2FLancaster Municipal HospitalUrine bacteria detection by automated methodOrdered By: Nirav Huerta on 02-40-3605Vdpaojbx Auto Ql (U)None seenNone SeenTwin City HospitalUrine clarity by refractometry automated Ordered By: Nirav Huerta on 09-75-1042Wahxwut Refractometry automated (U)Turbid ClearTwin City HospitalUrine glucose measurement by automated test strip (mass/volume)Ordered By: Nirav Huerta on 36-68-3979Rolhrus Auto test strip (U) [Mass/Vol]Normal mg/dLNormalTwin City HospitalUrine hemoglobin detection by automated test stripOrdered By: Nirav Huerta on 57-78-2130Wzsshsnbcn Auto test strip Ql (U)TraceNegativeTwin City HospitalUrine lactic acid measurementOrdered By: Nirav Huerta on 67-21-7919Zujfwmq (U) [Moles/Vol]0.9 mmol/L0.5-2.2FLancaster Municipal HospitalUrine leukocyte esterase detection by automated test stripOrdered By: Nirav Huerta on 43-51-4570Lyzrdjeet esterase Auto test strip Ql (U)4+Negative [facility] City HospitalUrobilinogen Auto test strip (U) [Mass/Vol] Ordered By: Nirav Huerta on 89-31-3265Gfjzslgacmwq (U) [Mass/Vol]Normal mg/dL NormalTwin City HospitalpH Auto test strip (U)Ordered By: Nirav Huerta on 65-31-5343kP (U)7.5 [pH]5.0-9.0[facility] ACETONE SERUMon 68-10-9798GRXCXQYEVUCVYgtqsqdtMRMZIHJEUsd [facility] Comment on above:Performed By: #### ACETON ####[facility] Kvdhgxrixn[address] [place], [place] [address]Dr. Grace Camarena GASES BTYon 01-07-2022 02 SCCI Hospital LimaComment on above:Performed By: #### ABG ####[facility] Bbvueklthr[address] [place], [place] [address]Dr. Grace LeeENS TESTPositiveTriHealthComment on above: Performed By: #### ABG ####[facility] Kugbkwkgjb325[address] [place], [place] [address]Dr.Grace BestBase excess Calc (Bld) [Moles/Vol]- 8.1000 mmol/LCritically low-2.0-2.0[facility] Medical CenterComment on above: Performed By: #### ABG ####[facility] Okiywootos[address] [place], [place] [address]Dr.Grace CervantesP J.W. Ruby Memorial HospitalComment on above:Performed By: #### ABG ####[facility] B[address]kyjqhnn[address] [place] [address]Dr.Grace NasirWhite HospitalComment on above:Performed By: #### ABG ####[facility] Gizpiptnql[address] [place] [address]Dr.Grace UtrtkYKU9VckrynLcy05 Turner StreetComment on above:Performed By: #### ABG ####[facility] Drnmjspvhq02[address] [place], [place] [address]Dr.Roxannecam NasirHCO3 (Bld) [Moles/Vol]18.5 mmol/LCritically low22.0-26.0The [facility] SystemComment on above:Performed By: #### ABG ####[facility] Ymijkosuex82[address] [place], [place] [address]Dr.Grace BestLPMNormalThe [facility] Health SystemComment on above:Performed By: #### ABG ####[facility] Dxltlmvfbh[address] [place], [place] [address]Dr.Grace BestMINAdams County Regional Medical Center Comment on above:Performed By: #### ABG ####[facility] Mcnabejckz[address] [place], [place] [address]Dr.Grace ChangOxygen (Bld) [Partial pressure]110.0 mm[Hg]Critically high80.0-100.0The [facility] SystemComment on above:Performed By: #### ABG ####[facility] Tzqvntvvrc95[address] [place], [place] [address]Dr.Grace BestOxygen saturation in Blood97.0 %Normal 95.0-100.0The [facility] SystemComment on above:Performed By: #### ABG ####[facility] Weeyvvurtg[address] [place], [place] [address]Dr. Grace BestPCO232.0 mmHgCritically low35.0-45.0The [facility] SystemComment on above:Performed By: #### ABG ####[facility] Zfretczmbj[address] [place], [place] [address]Dr.Grace BestPEEPNormalThe Silvana HospitalComment on above:Performed By: #### ABG ####[facility] [address]owk[address] [place] [address]Dr.Roxannecam BestpH (Bld)7.347 [pH]Critically low 7.350-7.450[facility] Medical CenterComment on above:Performed By: #### ABG ####[facility] Efcgeoafpc[address] [place] [address]Dr. Grace BestPIPNormalSelect Medical Specialty Hospital - Southeast [place] HospitalComment on above:Performed By: #### ABG ####[facility] Rgafurejyn[address] [place], [place] [address]Dr. RoxanneLancaster Municipal HospitalComment on above:Performed By: #### ABG ####[facility] Uvqandbhhs47[address] [place], [place] [address]Dr. Grace BestPUNCTURE SITEMemorial Health System Marietta Memorial HospitalComment on above:Performed By: #### ABG ####[facility] Zpvqexcjqa[address] [place], [place] [address]Dr.Grace BestRATENormalOhio State University Wexner Medical CenterComment on above:Performed By: #### ABG ####[facility] Ynbeiststw[address] [place], [place] [address]Dr.Roxannecam [facility] HospitalComwalter p. [facility] on above: Performed By: #### ABG ####[facility] Zjqxeupzcb[address] [place], [place] [address]Dr.[facility] Charles HospitalComment on above:Performed By: #### ABG ####[facility] Icoxbqriaf16[address] [place], [place] [address]Dr.Grace BestCARDIAC ALY 3-6on 51-64-7576CO [Catalytic activity/Vol]21 U/LCritically oyw06-582KlsOhio State University Wexner Medical CenterComwalter p. reuther psychiatric hospital on above:Performed By: #### CMREP ####[facility] Nvqvhkddlt[address] [place], [place] [address]Dr. Grace BestCK.MB [Mass/Vol]1.01 ng/mLNormal<=3.60 The [facility] SystemComment on above:Performed By: #### CMREP ####[facility] [address]xhpve[address] [place] [address]Dr. Grace Best HSTROP9.1 pg/mLNormal4.0-51.3The [facility] SystemComment on above:Result Comment: CUT-OFF POINTS HAVE BEEN ESTABLISHED BASED ON THE FOURTH UNIVERSAL DEFINITIONS OF MYOCARDIALINFARCTION. THE UPPER REFERENCE LIMIT (URL) OF TROPONIN, DEFINED THE 99TH PERCENTILE OFcTnI DISTRIBUTION IN A REFERENCE POPULATION, HAS BEEN CONFIRMED THE DECISION THRESHOLDFOR VT DIAGNOSIS. Performed By: #### CMREP ####[facility] Efngqmawdx[address] [place], [place] [address]Dr. Grace Yoon [Catalytic activity/Vol]16 U/L Critically zce18-441UyuProtestant Deaconess Hospital on above:Performed By: #### CMREP ####[facility] Bhbhowrxxi12[address] [place], [place] [address]Dr. Grace Yoon.MB [Mass/Vol]0.87 ng/mLNormal<=3.60[facility] Comment on above:Performed By: #### CMREP ####[facility] Ddhwblgirb[address] [place], [place] [address]Dr. Roxannecam BestHSTROP8.7 pg/mLNormal4.0-51.3 [facility] on above:Result Comment: CUT-OFF POINTS HAVE BEEN ESTABLISHED BASED ON THE FOURTH UNIVERSAL DEFINITIONS OF MYOCARDIALINFARCTION. THE UPPER REFERENCE LIMIT (URL) OF TROPONIN, DEFINED THE 99TH PERCENTILE OFcT nI DISTRIBUTION IN A REFERENCE POPULATION, HAS BEEN CONFIRMED THE DECISION THRESHOLDFOR VT DIAGNOSIS.Performed By: #### CMREP ####[facility] Pfphnsukrv[address] [place], [place] [address]Dr. Grace ResendezAC ALY ADMITon 81-81-9214ZG [Catalytic activity/Vol]30 U/GGbqkdd23-019KffHenry County Hospitalment on above:Performed By: #### CMADM ####[facility] [address]pjad[address] [place] [address]Dr. Grace Yoon.MB [Mass/Vol]0.83 ng/mLNormal<=3.60The [facility]vana HospitalComment on above:Performed By: #### CMADM ####[facility] Ix[address]ysqdjwg[address] [place] [address]Dr. Grace BestHSTROP8.2 pg/mLNormal4.0-51.3TGrant Hospital Comment on above:Result Comment: CUT-OFF POINTS HAVE BEEN ESTABLISHED BASED ON THE FOURTH UNIVERSAL DEFINITIONS OF MYOCARDIALINFARCTION. THE UPPER REFERENCE LIMIT (URL) OF TROPONIN, DEFINED THE 99TH PERCENTILE OFcTnI DISTRIBUTION IN A REFERENCE POPULATION, HAS BEEN CONFIRMED THE DECISION THRESHOLDFOR VT DIAGNO SIS.Performed By: #### CMADM ####[facility] Unpqxwbyal[address] [place], [place] [address]Dr. Grace BanbjWTS15 ng/mLNormal9-82Henry County Hospitalment on above:Performed By: #### CMADM ####[facility] Bfuerfzsox9[address] [place], [place] [address]Dr. Roxannelan NasirCBC W MANUAL DIFFon 84-19-5703YCJESEZP LYMPH #NormalOhio State University Wexner Medical CenterComment on above: Performed By: #### CBCMAN ####[facility] Dzthpaxkyh98[address] [place], [place] [address]Dr. Roxannelan ChangATYPICAL LYMPH %NormalOhio State University Wexner Medical CenterComment on above:Performed By: #### CBCMAN ####[facility] Zctspugafu[address] [place], [place] [address]Dr. Yilan ChangBAND #0.1 103/ulNormal0.0-0.3The [facility] SystemComment on above:Performed By: #### CBCMAN ####[facility] Prblttvfkl7[address] [place], [place] [address]Dr. Yilan ChangBAND %1 %Normal0-5The [facility] SystemComment on above: Performed By: #### CBCMAN ####[facility] Vmjvzklrdw[address] [place], [place] [address]Dr. Yilan ChangBASOM #0.00 103/ulNormal0.00-0.10The [facility] SystemComment on above:Performed By: #### CBCMAN ####[facility] [address]vbhrcr[address] [place] [address]Dr. Yilan ChangBASOM %0.0 %Critically low0.2-2.0The [facility]oup HospitalComment on above:Performed By: #### CBCMAN ####[facility] Nkjvgrjesb[address] [place], [place] [address]Dr. Yilan ChangBLAST #NormalThe Troup HospitalComment on above:Performed By: #### CBCMAN ####[facility] Pirtorlrul[address] [place], [place] [address]Dr. Yilan ChangBLAST %NormalThe Troup HospitalComment on above: Performed By: #### CBCMAN ####[facility] [id number] [place], [place] [address]Dr. Yilan ChangCORRECTED WBCNormal4.0-11.0The [facility] SystemComment on above:Performed By: #### CBCMAN ####[facility] [id number] [place], [place] [address]Dr. Yilan ChangEOS #0.00 103/ulNormal0.00-0.70The [facility] Health SystemComment on above:Performed By: #### CBCMAN ####[facility] [id number] [address] [place], [place] [address]Dr. Yilan ChangEOS%0.0 %Critically low0.9-7.0The [facility] Health SystemComment on above:Performed By: #### CBCMAN ####[facility] Aqebxwtfx[address] [place], [place] [address]Dr. Yilan GbylkYSN06.3 %Critically low36.0-48.0 The [facility] HospitalComment on above:Performed By: #### CBCMAN ####[facility] Dhnpwokgrt[address] [place], [place] [address]Dr. Yilan ChangHGB 10.2 g/dlCritically low12.0-16.0The [facility] SystemComment on above:Performed By: #### CBCMAN ####[facility] Hyagtyaxxy[address] [place], [place] [address]Dr. Yilan ChangLYMPHM #0.26 103/ulCritically low1.20-3.80The [facility] Health SystemComment on above:Performed By: #### CBCARIAN ####[facility] Jo[address]jb[address] [place] [address]Dr. Yilan ChangLYMPHM%2.0 % Critically low20.5-60.0The [facility] Health SystemComment on above:Performed By: #### CBCARIAN ####[facility] Gpuvwgsges[address] [place] [address]Dr. Yicam BestFdpayKMH30.9 amOtzsvq71.7-34.0The [facility] HospitalComment on above:Performed By: #### CBCARIAN ####[facility] [address]xd[address] [place] [address]Dr. Yicam CfyhoBQWX92.6 g/xiPpqyrg26.9-35.2The [facility] SystemComment on above:Performed By: #### CBCARIAN ####[facility] Ljsgspoaoh[address] [place], [place] [address]Dr. Yilan ChangV 91.5 bRHvcgxe90.0-99.0The [facility] SystemComment on above:Performed By: #### CBCARIAN ####[facility] Hypywyzerh[address] [place], [place] [address]Dr. Yilan ChangMETAMYELOCYTE #NormalThe [facility] on above: Performed By: #### CBCARIAN ####[facility] Fsjmyxxw[address] [place] [address]Dr. Yilan ChangMETAMYELOCYTE %NormalThe [facility] Health SystemComment on above:Performed By: #### CBCARIAN ####[facility] Qkdaprqfrl[address] [place] [address]Dr. Yilan ChangMONOM#0.26 103/ulCritically low0.30-0.80The [facility] SystemComment on above:Performed By: #### CBCARIAN ####[facility] Qrmhmidrru[address] [place], [place] [address]Dr. Yilan ChangMONOM%2.0 %Normal1.7-12.0The [facility] SystemComment on above:Performed By: #### CBCARIAN ####[facility] Ksdlilitlu[address] [place] [address]Dr. Grace BestMPV9.3 fLCritically low9.5-13.5The [facility] SystemComment on above:Performed By: #### CBCMAN ####[facility] Wuqsnifnmg[address] [place] [address]Dr. Grace Best MYELOCYTE #NormalThe [facility] SystemComment on above:Performed By: #### CBCARIAN ####[facility] Dpzkabgdsi[address] [place] [address]Dr. Grace ChangMYELOCYTE %NormalThe Troup HospitalComment on above:Performed By: #### CBCARIAN ####[facility] Apjmkxnasr[address] [place], [place] [address]Dr. Grace BestNRBCNormalThe [facility] SystemComment on above:Performed By: #### CBCARIAN ####[facility] Fnsiyacoyd56[address] [place], [place] [address]Dr. Grace BestPLT809 103/ulCritically gscp701-776Png [facility] SystemComment on above:Result Comment: NOT PLT CLUMPING OBSERVEDPerformed By: #### CBCARIAN ####[facility] Jcyasmenkw25[address] [place], [place] [address]Dr. Grace BestRBC3.53 106/ulCritically low4.20-5.40[facility] Comment on above:Performed By: #### CBCARIAN ####[facility] Mullxvwgnd8[address] [place], [place] [address]Dr. Grace BestRDW16.8 %Critically high 11.0-15.0The [facility] SystemComment on above:Performed By: #### CBCMAN ####[facility] Mcqygkjcpq7[address] [place], [place] [address]Dr. Grace BestSEG #12.16 103/ulCritically high1.40-6.50The [facility] SystemComment on above:Performed By: #### CBCMAN ####[facility] Fmnqxrygma74[address] [place], [place] [address]Dr. Grace BestSEG %95.0 %Critically high 43.0-75.0The [facility] SystemComment on above:Performed By: #### CBCMAN ####[facility] Robjptmdqo94[address] [place] [address]Dr. Grace HjkblHZL45.8 103/ulCritically high4.0-11.0The [facility] SystemComment on above:Performed By: #### CBCMAN ####[facility] Bpburmlxuv[address] [place] [address]Dr. Grace BestCovid-19 PCR (CVDTB)on 01-07-2022 SARS-CoV-2 (COVID-19) RNA LOUISE+probe Ql (Unsp spec)Not detectedNormalNOT DETECTED The [facility] SystemComwalter [facility] on above:Result Comment: When diagnostic testing is negative, the [...] for this test is supported by the [place] of Health and Human Service's declaration that circumstances exist to justify the emergency use of in vitro diagnostics for the detection and/or diagnosis of the virus that causes COVID- 19. This EUA will remain in effect for the duration of the COVID-19declaration justifying emergency of IVDs, unless it is terminated or revoked by the FDA (after which the test may no longer be used).Performed By: #### CVDTBH ####[facility] Kofyjvezoe[address] [place] [address]Dr. Roxannecam ChangLACTATE/LACTIC ACIDon 60-72-0085Lcexlls [Moles/Vol]5.0 mmol/L Critically high0.4-1.9The [facility] on above:Performed By: #### LACT ####[facility] Baozlklfga[address] [place] [address]Dr. Grace Worcester County HospitalPOINT OF CARE GLUCOSEon 97-33-5206Mmwtfrn [Mass/Vol]302 mg/dLCritically wamt98-720Evw [facility] SystemComment on above:Performed By: #### POCGLUC ####[facility] Kvhcnjrgxz[address] [place] [address]Dr. Yicam ChangGlucose [Mass/Vol]311 mg/dLCritically tspx72-581Add [facility] SystemComment on above:Performed By: #### POCGLUC ####[facility] Ekcmmdzgyt237[address] [place], [place] [address]Dr. Grace Best Glucose [Mass/Vol]273 mg/dLCritically ipsd82-566Jbg [facility] SystemComment on above:Performed By: #### POCGLUC ####[facility] Qyxvofmsae405[address] [place], [place] [address]Dr. Yicam ChangGlucose [Mass/Vol]404 mg/dLCritically ivzl76-113Tii [facility] SystemComment on above:Performed By: #### POCGLUC ####[facility] Ddnbvwlatq712[address] [place], [place] [address]Dr. Grace ChangPOCGLUC>600Critically iqqg10-052KkyOhio State University Wexner Medical CenterComment on above:Result Comment: Lab Draw OrderedPerformed By: #### POCGLUC ####[facility] Lnzusresid69[address] [place], [place] [address]Dr. Grace ChangPROF 14(COMP METB)on 10-93-7482Hjzbowk [Mass/Vol]2.8 g/dLCritically low3.4-5.0The [facility] SystemComment on above:Performed By: #### CMP ####[facility] Yqdurffbqf389[address] [place], [place] [address]Dr.Grace Best Albumin/Globulin [Mass ratio]0.6 {ratio}NormalThe [facility] SystemComment on above:Performed By: #### CMP ####[facility] Xncjckrgjn733[address] [place], [place] [address]Dr.Grace ChangALP [Catalytic activity/Vol]132 U/L Critically wzne89-094MxxOhio State University Wexner Medical CenterComment on above:Performed By: #### CMP ####[facility] Jhilfhrkuf08[address] [place], [place] [address]Dr. Roxannecam ChangALT [Catalytic activity/Vol]24 U/WBrzbmk10-30Lwx [facility] Comment on above:Performed By: #### CMP ####[facility] Bwatkpyjgo038[address] [place], [place] [address]Dr.Yilan ChangAnion gap [Moles/Vol]25.7 mmol/LNormalThe [facility] SystemComment on above:Performed By: #### CMP ####[facility] Tcgdihcrsu2944[address] [place], [place] [address]Dr. Yilan ChangAST [Catalytic activity/Vol]12 U/LCritically zqc26-95Ome [facility] SystemComment on above:Performed By: #### CMP ####[facility] Psilryanny654[address] [place], [place] [address]Dr.Yilan ChangBilirubin [Mass/Vol]0.6 mg/dLNormal0.2-1.0The [facility] SystemComment on above:Performed By: #### CMP ####[facility] Vcndtekazx339[address] [place], [place] [address]Dr.Yilan ChangCalcium [Mass/Vol]9.1 mg/dLNormal8.5-10.1The [facility] HospitalComment on above:Performed By: #### CMP ####[facility] Subhsamdhv542[address] [place], [place] [address]Dr.Yilan ChangChloride [Moles/Vol]89 mmol/LCritically qmh26-604Mow [facility] SystemComment on above: Performed By: #### CMP ####[facility] Eguiqnlsnv570[address] [place], [place] [address]Dr.Yilan ChangCO2 [Moles/Vol]14.2 mmol/LCritically low 21.0-32.0The [facility] HospitalComment on above:Performed By: #### CMP ####[facility] Aaaevuiynf810[address] [place], [place] [address]Dr. Yilan ChangCreatinine [Mass/Vol]1.33 mg/dLCritically high0.55-1.02The [facility] SystemComment on above:Performed By: #### CMP ####[facility] Fsbwegsjbw0214[address] [place], [place] [address]Dr.Yilan ChangEGFR-AF IVBXHIXJ28 mL/min/1.97c1Evquuyjiys low>=60The [facility] SystemComment on above: Performed By: #### CMP ####[facility] Peaihdphtt[address] [place], [place] [address]Dr.Yilan ChangEGFR-NON AF DFLZHZBV98 mL/min/1.73m2 Critically low>=60The [facility] SystemComment on above:Performed By: #### CMP ####[facility] Mgtnzhvhuu860[address] [place], [place] [address]Dr. Yilan ChangGlobulin (S) [Mass/Vol]4.6 g/dLNormalThe [facility] SystemComment on above:Performed By: #### CMP ####[facility] Yehmmzjipu418[address] [place], [place] [address]Dr.Yilan ChangGlucose [Mass/Vol]826 mg/dLCritically szun12-082Lph [facility] SystemComment on above:Performed By: #### CMP ####[facility] Itywmhywzq165[address] [place], [place] [address]Dr. Yilan ChangPotassium [Moles/Vol]4.9 mmol/LNormal3.5-5.1The [facility] Comment on above:Performed By: #### CMP ####[facility] Jvidicinbu0532[address] [place], [place] [address]Dr.Yilan ChangProtein [Mass/Vol]7.4 g/dL Normal6.4-8.2The [facility] SystemComment on above:Performed By: #### CMP ####[facility] Ngrsvnwzcm1925[address] [place], [place] [address]Dr. Yilan ChangSodium [Moles/Vol]124 mmol/LCritically kdf124-004Qvb [facility] SystemComment on above:Performed By: #### CMP ####[facility] Iposcwnvxl377[address] [place], [place] [address]Dr.Yilan ChangUrea nitrogen [Mass/Vol]28.0 mg/dLCritically high7.0-18.0The [facility] SystemComment on above:Performed By: #### CMP ####[facility] Fliylrqqdv631[address] [place], [place] [address]Dr.Yilan ChangUrea nitrogen/Creatinine [Mass ratio] 21.1 mg/mgNormalThe [facility] SystemComment on above:Performed By: #### CMP ####[facility] Mhfgueqkwn759[address] [place], [place] [address]Dr. Yilan ChangPROF CHEM 8 (BAS METB)on 38-09-4330Kvoty gap [Moles/Vol]11.0 mmol/L NormalThe [facility] SystemComment on above:Performed By: #### BMP ####[facility] Tnshprmvnq114[address] [place], [place] [address]Dr.Yilan Best Calcium [Mass/Vol]8.4 mg/dLCritically low8.5-10.1The [facility] SystemComment on above:Performed By: #### BMP ####[facility] Wfppepgebg496[address] [place], [place] [address]Dr.Yilan ChangChloride [Moles/Vol]101 mmol/LNormal 98-107The [facility] SystemComment on above:Performed By: #### BMP ####[facility] Lffvuviuct173[address] [place], [place] [address]Dr.Yilan ChangCO2 [Moles/Vol]24.4 mmol/MMnmiom62.0-32.0The [facility] SystemComment on above: Performed By: #### BMP ####[facility] Jbuszcryzz285[address] [place], [place] [address]Dr.Yilan ChangCreatinine [Mass/Vol]0.87 mg/dLNormal 0.55-1.02The [facility] SystemComment on above:Performed By: #### BMP ####[facility] Boroduuniw4544[address] [place], [place] [address]Dr. Yilan ChangEGFR-AF TUNISIAN>60Normal>=60The [facility] SystemComment on above: Performed By: #### BMP ####[facility] Qoapbjxqhn350[address] [place], [place] [address]Dr.Yilan ChangEGFR-NON AF TUNISIAN>60Normal>=60The [facility] SystemComment on above:Performed By: #### BMP ####[facility] Pntsnapkzc5[address] [place] [address]Dr.Grace ChangGlucose [Mass/Vol]293 mg/dLCritically unos73-504Pjd [facility] SystemComment on above: Performed By: #### BMP ####[facility] Vfdzjrvfbg009[address] [place], [place] [address]Dr.Roxannecam NasirPotassium [Moles/Vol]4.4 mmol/LNormal 3.5-5.1The [facility] SystemComment on above:Performed By: #### BMP ####[facility] Tcdpisexdf27[address] [place], [place] [address]Dr.Grace Best Sodium [Moles/Vol]132 mmol/LCritically vbm001-450Yim [facility] SystemComment on above:Performed By: #### BMP ####[facility] Pgxfljutwc2914[address] [place], [place] [address]Dr.Grace ChangUrea nitrogen [Mass/Vol]25.0 mg/dL Critically high7.0-18.0The [facility] SystemComment on above:Performed By: #### BMP ####[facility] Lvyhbfztng839[address] [place], [place] [address]Dr. Roxannecam ChangUrea nitrogen/Creatinine [Mass ratio]28.7 mg/mgNormalThe [facility] SystemComment on above:Performed By: #### BMP ####[facility] Rwvtepufth9[address] [place], [place] [address]Dr.Grace BestPROTIMEon 00-91-4418LQU Coag (PPP) [Relative time]0.93 {INR}NormalThe [facility] Comment on above:Performed By: #### PT, PTT ####[facility] Kockdhoatj[address] [place], [place] [address]Dr. Grace BestINR GUIDELINESSEE BELOWNormal The [facility] SystemComment on above:Result Comment: DESIRED INR: 2.0 - 3.0 CONDITIONS NOT LISTED BELOW 2.5 - 3.5 FOR PROSTHETIC HEART VALVE REPLACEMENT 2.5 - 3.5 RECURRENT THROMBOSISPerformed By: #### PT, PTT ####[facility] Hbhgfpsjek94[address] [place], [place] [address]Dr. Grace BestPT Coag (PPP) [Time]10.1 sNormal9.0-11.6The [facility] SystemComment on above:Performed By: #### PT, PTT ####[facility] [address] [place], [place] [address]PoGiancarlo BestPTTon 43-74-0288xQES Coag (Bld) [Time]26.2 xWdzkzm78.3-36.2 The [facility] SystemComment on above:Performed By: #### PT, PTT ####[facility] Ysxknbvdjb8592 [place], [place] [address]Wq. Grace BestXR CHEST 1 Von 59-21-5208VV CHEST 1 VNormalThe [facility] SystemCREATININE BLD Ordered By: Severo Gilmore on 39-02-5982Uunmspxbji [Mass/Vol]0.68 mg/dL0.58 - 0.96 mg/dLWhite Hall ClinicGFR/1.73 sq M.predicted among non-blacks MDRD (S/P/Bld) [Vol rate/Area]103 mL/min/{1.73_m2}- PINKnox Community HospitalComment on above: Estimated Glomerular Filtration Rate (eGFR) is calculated using the 2020 CKD-EPI creatinine equation. This equation utilizes serum creatinine, sex, and age as parameters. The creatinine assay has traceable calibration to isotope dilution- mass spectrometry. Refer to KDIGO guidelines for clinical interpretation. In patients with unstable renal function, e.g. those with acute kidney injury, the eGFRmay not accurately reflect actual GFR.Interpretation and review of laboratory resultsNormalCselect medical specialty hospital - akronand [facility] Abdomen and Pelvis W contrast IVOrdered By: [facility]cf Provider on 20-27-9776Jbddiljpbtqfbu and review of laboratory resultsAbnormalCMercy Health St. Charles HospitalRadiology ResultACTIONABLEAbnormal [facility] on above:This report contains an incidental or actionable finding. This finding may be a new finding separate from the reason your provider ordered the imaging test or it may be an already known finding that needs additional or continued follow-up. Because of this incidental or actionable finding, you may need another test (imaging or a different type of test). Please contact your provider for the next steps. [facility] ClinicCT Abdomen and Pelvis W contrast [place] 64-77-3494YNAYSNTYLS: 1. Persistent indeterminate 2.3 x 1.5 cm retropubic fluid collection, now containing a punctate focus of air and demonstrating mild peripheral enhancement. Gas-forming infection cannot be excluded. Consider further evaluation and follow-up to complete resolution. 2. Nonobstructing left renal stone. ACTIONABLE RESULT: FOLLOW-UP Acuity: Actionable Findings: Other Routing Code: Misc_1 Recommendation: Unlisted Recommendation (see report) Time Frame: At the discretion of the clinical team. COMMUNICATION: Results will be communicated with the ordering provider via [employer] staff message or phone message by [facility] Support Services within 2 business days of report finalization. Algorithms for management of incidental imaging findings can be found on the [facility] Intranet Sharepoint site at: http://spo.cc.org/documentation/mychartlinks/Managing%20Incidental%20Findi ngs%20at%20Imaging/Forms/AllItems.aspx Transcribe Date/Time: Oct 25 2021 5:36P Dictated by: ALEKSANDR KRUEGER MD This examination was interpreted and the report reviewed and electronically signed by: ALEKSANDR KRUEGER MD on Oct 25 2021 5:51PM EST Thank you for allowing us to participate in the care of your patient. Should there be any questions regarding this interpretation, please call [phone]. If you are unable to reach us at the number above, please feel free to contact [facility] eRadiology at [phone]. ZZZ_DO_NOT_USE_DIVISION OF RADIOLOGY* * *Final Report* * * DATE OF EXAM: Oct 25 2021 1:10PM [facility] 0530 - CT ABD/PEL W IVCON / PROCEDURE REASON: multiple diagnoses * * * * Physician Interpretation * * * * RESULT: EXAMINATION: CT ABDOMEN AND PELVIS WITH IV CONTRAST CLINICAL HISTORY: Bladder cancer follow-up TECHNIQUE: CT of the abdomen and pelvis was performed using standard technique, scanning from just above the dome of the diaphragm to the symphysis pubis. MQ: CTAP_3 Contrast: IV: 100 ml of Omnipaque 300 Oral: 450 ml of 50ML Omnipaque [address] Radiation dose: Integrated Dose-length product (DLP) for this visit = 366 mGy*cm. CT Dose Reduction Employed: Automated exposure control (AEC) COMPARISON: None. RESULT: Liver: No mass. Biliary: No bile duct dilation. Gallbladder is unremarkable. Spleen: No mass. No splenomegaly. Pancreas: No mass or duct dilation. Adrenals: No mass. Kidneys: 3-4 mm nonobstructive left renal stone. No suspicious enhancing renal mass or hydronephrosis. GI tract: No dilation or wall thickening. Lymph nodes: No abdominal or pelvic lymphadenopathy. Mesentery/Peritoneum: No ascites or mass. Retroperitoneum: No mass. Vasculature: - Abdominal aorta and iliac arteries: Atherosclerotic calcifications without aneurysm. - Celiac and SMA: Patent without stenosis. - Portal venous system (SMV, splenic vein, portal vein and branches): Patent. - Hepatic veins: Patent. Pelvis: Status post cystectomy. Persistent indeterminate 2.3 x 1.5 cm retropubic peripherally enhancing fluid collection (2:130) now containing a punctate focus of air (2:129), previously 2.9 x 1.7 cm. Ileal diversion is noted in the right midabdomen. Bones/Soft Tissues: No new osseous abnormalities. Lower thorax: No focal consolidation. Risk And Insurance Consultant (topogram) images: No additional findings. ZZZ_DO_NOT_USE_DIVISION OF RADIOLOGYProvider, [facility] [place] - 10/25/2021 * * *Final Report* * * DATE OF EXAM: Oct 25 2021 1:10PM [facility] 0530 - CT ABD/PEL W IVCON / PROCEDURE REASON: multiple diagnoses * * * * Physician Interpretation * * * * RESULT: EXAMINATION: CT ABDOMEN AND PELVIS WITH IV CONTRAST CLINICAL HISTORY: Bladder cancer follow-up TECHNIQUE: CT of the abdomen and pelvis was performed using standard technique, scanning from just above the dome of the diaphragm to the symphysis pubis. MQ: CTAP_3 Contrast: IV: 100 ml of Omnipaque 300 Oral: 450 ml of 50ML Omnipaque [address] Radiation dose: Integrated Dose-length product (DLP) for this visit = 366 mGy*cm. CT Dose Reduction Employed: Automated exposure control (AEC) COMPARISON: None. RESULT: Liver: No mass. Biliary: No bile duct dilation. Gallbladder is unremarkable. Spleen: No mass. No splenomegaly. Pancreas: No mass or duct dilation. Adrenals: No mass. Kidneys: 3-4 mm nonobstructive left renal stone. No suspicious enhancing renal mass or hydronephrosis. GI tract: No dilation or wall thickening. Lymph nodes: No abdominal or pelvic lymphadenopathy. Mesentery/Peritoneum: No ascites or mass. Retroperitoneum: No mass. Vasculature: - Abdominal aorta and iliac arteries: Atherosclerotic calcifications without aneurysm. - Celiac and SMA: Patent without stenosis. - Portal venous system (SMV, splenic vein, portal vein and branches): Patent. - Hepatic veins: Patent. Pelvis: Status post cystectomy. Persistent indeterminate 2.3 x 1.5 cm retropubic peripherally enhancing fluid collection (2:130) now containing a punctate focus of air (2:129), previously 2.9 x 1.7 cm. Ileal diversion is noted in the right midabdomen. Bones/Soft Tissues: No new osseous abnormalities. Lower thorax: No focal consolidation. Risk And Insurance Consultant (topogram) images: No additional findings. IMPRESSION IMPRESSION: 1. Persistent indeterminate 2.3 x 1.5 cm retropubic fluid collection, now containing a punctate focus of air and demonstrating mild peripheral enhancement. Gas-forming infection cannot be excluded. Consider further evaluation and follow-up to complete resolution. 2. Nonobstructing left renal stone. ACTIONABLE RESULT: FOLLOW-UP Acuity: Actionable Findings: Other Routing Code: Misc_1 Recommendation: Unlisted Recommendation (see report) Time Frame: At the discretion of the clinical team. COMMUNICATION: Results will be communicated with the ordering provider via [employer] staff message or phone message by Imaging Support Services within 2 business days of report finalization. Algorithms for management of incidental imaging findings can be found on the [facility] Intranet Sharepoint site at: http://spo.cc.org/documentation/mychartlinks/Managing%20Incidental%20Findi ngs%20at%20Imaging/Forms/AllItems.aspx Transcribe Date/Time: Oct 25 2021 5:36P Dictated by: ALEKSANDR KRUEGER MD This examination was interpreted and the report reviewed and electronically signed by: ALEKSANDR KRUEGER MD on Oct 25 2021 5:51PM EST Thank you for allowing us to participate in the care of your patient. Should there be any questions regarding this interpretation, please call [phone]. If you are unable to reach us at the number above, please feel free to contact [facility] at [phone]. [facility] Hospitaliology Study observation (narrative)[facility] SystemFollow Up (Endocrinology)on 26-37-9267Rwqqzg Up (Endocrinology)Diagnoses/Problems Assessed Insulin long-term use (V58.67) (Z79.4) Uncontrolled type 1 diabetes mellitus with hyperglycemia (250.83,790.29) (E10.65) Insulin pump status (V45.85) (Z96.41) Orders Uncontrolled type 1 diabetes mellitus with hyperglycemia Hemoglobin A1C; Status:Active; Requested for:84Qmx5284; Perform:Lab Services - Lab To Draw (Blood Test); Due:40Rrw2196;Ordered; For:Uncontrolled type 1 diabetes mellitus with hyperglycemia; Ordered By:Nayely Villasenor; Patient Discussion/Summary Thank you for coming [...] current DM regimen. Home Glucose Monitoring: Source: tandem tconnect device downloaded, reviewed and scanned into chart. Frequency of Testing: Testing done daily. Testing done with meals. Compliant with home glucose monitoring. Glucose Ranges: 76-380. No recent hypoglycemic episodes. Diet Plan: Type of Diet: Carb counting Patient is compliant with diet plan. Diabetes Surveillance: Foot exam/traffic law attorney: 08/03/20. Diabetes Complications: Opthalmic: Has eye complications [...] apr 20 (stayed for 4 days at [facility]) - pt was not [...] no fainting, no tremors, no foot pain, nolimb weakness and no difficulty walking. Psychiatric: no anxiety, no depression, no personality change, no emot (more content not included)...NormalUH TouchworksTobacco Screening.on 58-66-9476Bdzd risk assessmenta) No falls within the last mwimZD-Brihxrwqbcxxl-[facility] [employer] Work Phone: Tobacco use status CPHSb) ThEG-Pmpljsuinlviv-YTK [employer] Work Phone: cOLONOSCOPY SCREENINGon 80-26-4233Wvkgbfvut ClinicEGD DIAGNOSTICon 31-45-4021Mqpnpmxys ClinicGLUCOSE, BLOOD (POC)on 50-08-6149Ebvhxan [Mass/Vol]65 mg/dL74 - 99 mg/dLThe [facility] SystemFollow Up (Endocrinology)on 89-06-8674Jsohtm Up (Endocrinology)Diagnoses/Problems Assessed Uncontrolled type 1 diabetes mellitus with hyperglycemia (250.83,790.29) (E10.65) Insulin pump status (V45.85) (Z96.41) Insulin long-term use (V58.67) (Z79.4) Orders Uncontrolled type 1 diabetes mellitus with hyperglycemia Renew: Baqsimi Two Pack 3 MG/DOSE Nasal Powder; Please use as directed for emergent low hypoglycemia Rx By: Nayely Villasenor; Dispense: 90 Days ; #:1 Each; Refill: 3;For: Uncontrolled type 1 diabetesmellitus with hyperglycemia; CAL = N; Verified Transmission to [facility] 4944; Last Updated By: System, [employer]; 06/21/2021 7:19:06 PM Patient Discussion/Summary Thank you [...] compliant with diet plan. Diabetes Surveillance: Foot exam/traffic law attorney: 08/03/20. Diabetes Complications: Opthalmic: Has eye complications [...] apr 20 (stayed for 4 days at [facility]) - pt was not [...] no fainting, no tremors, no foot pain, nolimb weakness and no difficulty walking. Psychiatric: no anxiety, no depression, no personality change, no emotional problems, no suicidal ideation, no sleep disturbances and no panic attacks. (more content not included)...NormalUH TouchworksTobacco Screening.on 06-21-2021 Fall risk assessmenta) No falls within the last hldoOC-Wdvjofyzetdre-PKM [employer] Work Phone: Tobacco use status CPHSb) [facility] [address] Work Phone: cT Chest WO contraston [id number]: 1. Multiple bilateral pulmonary nodules measuring up to 5 mm. Findings may be infectious/inflammatory or neoplastic in origin. Recommend continued follow-up. 2. No evidence of bulky intrathoracic lymphadenopathy. Transcribe Date/Time: Mar 16 2021 3:04P Dictated by: ANNE BARRY MD This examination was interpreted and the report reviewed and electronically signed by: ANNE BARRY MD on Mar 16 2021 3:11PM EST Thank you for allowing us to participate in the care of your patient. Should there be any questions regarding this interpretation, please call [phone]. If you are unable to reach us at the number above, please feel free to contact [facility] at [phone].DIVISION OF RADIOLOGY* * *Final Report* * * DATE OF EXAM: Mar 16 2021 2:58PM [facility] 0541 - CT CHEST WO IVCON / PROCEDURE REASON: Malignant neoplasm of urinary bladder, unspecified site (HCC) * * * * Physician Interpretation * * * * RESULT: EXAMINATION: CHEST CT WITHOUT CONTRAST CLINICAL HISTORY: History of bladder cancer. Technique: Spiral CT acquisition of the chest from the thoracic inlet to the upper abdomen without contrast. MQ: CTCWO_6 CT Radiation dose: Integrated Dose-length product (DLP) for this visit = 269 mGy*cm CT Dose Reduction Employed: Automated exposure control (AEC) Comparison: None available. RESULT: Limitations: None. Lines, tubes, and devices: None. Lung parenchyma and airways: No lobar consolidation is identified. Bilateral nodular opacities are seen. These include the following: Right upper lobe (3:57) 2 mm Right middle lobe (3:96 and 101) nodules measuring up to 4 mm Right lower lobe (3:94 and 132) nodules measuring up to 5 mm Left upper lobe (3:46, 67, and 91) nodules measuring up to 4 mm Left lower lobe (3:113 and 119) nodules measuring up to 3 mm The central airways are widely patent. Pleural space: No pleural effusion. No pleural thickening. Lower neck, lymph nodes, and mediastinum: The imaged thyroid gland is normal. No lymphadenopathy in the supraclavicular, axillary, mediastinal, or hilar regions. Heart, pericardium, and thoracic vessels: The thoracic aorta and main pulmonary artery are normal in caliber. The cardiac chambers are normal in size. No coronary artery atherosclerotic calcifications are noted, although the study is not optimized for coronary assessment. No pericardial effusion or thickening. Bones and soft tissues: Degenerative change is seen in the thoracic spine. No destructive osseous lesions are seen. Superficial soft tissues are unremarkable. Upper abdomen: No abnormality in the imaged upper abdomen. Risk And Insurance Consultant (topogram) images: No additional findings. DIVISION OF RADIOLOGYProvider, [facility] [place] - 03/16/2021 * * *Final Report* * * DATE OF EXAM: Mar 16 2021 2:58PM [facility] 0541 - CT CHEST WO IVCON / PROCEDURE REASON: Malignant neoplasm of urinary bladder, unspecified site (HCC) * * * * Physician Interpretation * * * * RESULT: EXAMINATION: CHEST CT WITHOUT CONTRAST CLINICAL HISTORY: History of bladder cancer. Technique: Spiral CT acquisition of the chest from the thoracic inlet to the upper abdomen without contrast. MQ: CTCWO_6 CT Radiation dose: Integrated Dose-length product (DLP) for this visit = 269 mGy*cm CT Dose Reduction Employed: Automated exposure control (AEC) Comparison: None available. RESULT: Limitations: None. Lines, tubes, and devices: None. Lung parenchyma and airways: No lobar consolidation is identified. Bilateral nodular opacities are seen. These include the following: Right upper lobe (3:57) 2 mm Right middle lobe (3:96 and 101) nodules measuring up to 4 mm Right lower lobe (3:94 and 132) nodules measuring up to 5 mm Left upper lobe (3:46, 67, and 91) nodules measuring up to 4 mm Left lower lobe (3:113 and 119) nodules measuring up to 3 mm The central airways are widely patent. Pleural space: No pleural effusion. No pleural thickening. Lower neck, lymph nodes, and mediastinum: The imaged thyroid gland is normal. No lymphadenopathy in the supraclavicular, axillary, mediastinal, or hilar regions. Heart, pericardium, and thoracic vessels: The thoracic aorta and main pulmonary artery are normal in caliber. The cardiac chambers are normal in size. No coronary artery atherosclerotic calcifications are noted, although the study is not optimized for coronary assessment. No pericardial effusion or thickening. Bones and soft tissues: Degenerative change is seen in the thoracic spine. No destructive osseous lesions are seen. Superficial soft tissues are unremarkable. Upper abdomen: No abnormality in the imaged upper abdomen. Risk And Insurance Consultant (topogram) images: No additional findings. IMPRESSION IMPRESSION: 1. Multiple bilateral pulmonary nodules measuring up to 5 mm. Findings may be infectious/inflammatory or neoplastic in origin. Recommend continued follow-up. 2. No evidence of bulky intrathoracic lymphadenopathy. Transcribe Date/Time: Mar 16 2021 3:04P Dictated by: ANNE BARRY MD This examination was interpreted and the report reviewed and electronically signed by: ANNE BARRY MD on Mar 16 2021 3:11PM EST Thank you for allowing us to participate in the care of your patient. Should there be any questions regarding this interpretation, please call [phone]. If you are unable to reach us at the number above, please feel free to contact [facility] at [phone]. [facility] Study observation (narrative)[facility] Chest WO contrastOrdered By: Ccf Provider on [id number] ClinicTobacco Screening.on [id number] risk assessmenta) No falls within the last year HO-Vvonifzfzg-Kmnonpkg 2300 Work Phone: Tobacco use status CPHSb) OpOW-Qbbwgnntyq-Ravkpkkf 2300 Work Phone: Gynecology Office/Clinic Noteon [id number] Office/Clinic NoteChief Complaint New pt. Establishing care, Mirena IUD [...] traction and following with a neurologist in [place]. She is trying to avoid surgery. PMH: Type 1 DM, on insulin pump. She follows with endocrinology in [place]. Review of Systems Head Migraines: No Headaches: [...] of the lining of the uterus. An endometrialbiopsy is recommended to evaluate the lining of the uterus to rule out abnormal cells in the uterus. You may experience cramping or dizziness during the procedure. The cramping may be mild or severe.You may have light bleeding after the biopsy. Risks of the procedure include infection, heavy bleeding, puncture of the uterus, or disruption of undiagnosed, early . Endometrial Biopsy: Indications for endometrial biopsy were reviewed with the patient and consent was obtained. Urine test is negative. Patient was placed into lithotomy position. The speculum was placed and the cervix was treated withBetadine. The cervix was grasped with a single tooth tenaculum. The 3mm Pipet Curet was inserted and the uterus sounded to 7 cm. The specimen was withdrawn into the Pipet Curet and the instrument waswithdrawn from the patient and placed into a [...] reviewed the patient?s medication list for medication interactions/contraindications and/or for upcoming procedures: [yes] Time Spent with the Patient I have personally spent [28] minutes on this date, directly related to today's patient visit, including pre and post visit work, for this date of service. Time listed does not include time spent on separately billable se (more content not included)...[place]ervilleVitamin D 25 [place]on 06-14-2019 Vitamin D 25 OH25.8 ng/mLLow30.0-100.0[facility] on above: Result Comment: Reference Range: Vitamin D status Range Deficiency <20 ng/mL Mild Deficiency 20-30 ng/mL Sufficiency 30-100 ng/mL Toxicity >100 ng/mLPerformed By: #### GLYHGB #### [facility] [address] [place], [place] [id number] [employer]: Con Fernández MD #### VD25 #### [address] [id number] [employer]: Terrell Merida MDHemoglobin A1Con 75-05-6646GzL9y (Bld) [Mass fraction]10.5 %High4.8-5.9[facility] on above:Performed By: #### GLYHGB #### [facility] [address] [place], [place] [id number] [employer]: Con Fernández MD #### VD25 #### [address] [id number] [employer]: Terrell Merida MDHbA1c (Bld) [Mass fraction]255 mg/dLNormalCleveland Clinic on above:Result Comment: The ADA and AACC recommend providing the estimated average glucose result to permit better patient understanding of their HBA1c result.Performed By: #### GLYHGB #### [facility] [address] [place] [address] [employer]: Con Fernández MD #### VD25 #### [address] [id number] [employer]: Terrell Merida MDGlucose [Mass/Vol]255 mg/dLSelect Medical Specialty Hospital - [facility]-FairhillIVONNE Comment on above:The ADA and AACC recommend providing the estimated average glucose result to permit better patient understanding of their HBA1c result. HbA1c (Bld) [Mass fraction]10.5 %High4.8 - 5.9 %[facility]-FairhillIVONNE Interpretation and review of laboratory resultsAbnormalSelect Medical Specialty Hospital - [facility]-FairhillIVONNE Vitamin D 25 Hydroxyon 63-16-0971Qbejsxlmkvjmzk and review of laboratory results AbnormalSelect Medical Specialty Hospital - Cleveland-FairhillIVONNEVit D, 25-Lrnsrxw66.8 ng/mLLow30 - 100 ng/mLSelect Medical Specialty Hospital - [place]-FairhillIVONNEComment on above: Reference Range: Vitamin D status Range Deficiency <20 ng/mL Mild Deficiency 20-30 ng/mL Sufficiency 30-100 ng/mL Toxicity >100 ng/mL XR WRIST RIGHT (MIN 3 VIEWS)on 15-49-6886SI WRIST RIGHT (MIN 3 VIEWS)EXAM: XR WRIST RIGHT (MIN THREE VIEWS) HISTORY: M25.531, right wrist pain, 54-year-old female. COMPARISON: None. TECHNIQUE: Four views right wrist including ulnar deviated scaphoid view. FINDINGS: There is no significant degenerative change for age. No fracture or dislocation. IMPRESSION: Negative right wrist. Interpreted by: Dayday Rodríguez Jr., MD Signed by: Dayday Rodríguez Jr., MD 06/13/19 Final resultNoSumma Health Wadsworth - Rittman Medical CenterNegative right wrist.[facility]-FairhillIVONNEEXAM: XR WRIST RIGHT (MIN THREE VIEWS) HISTORY: M25.531, right wrist pain, 54-year-old female. COMPARISON: None. TECHNIQUE: Four views right wrist including ulnar deviated scaphoid view. FINDINGS: There is no significant degenerative change for age. No fracture or dislocation.[facility] [place]-FairhillAnna Mhpn Incoming Radiant Results From [employer] - 06/13/2019 3:03 PM EST EXAM: XR WRIST RIGHT (MIN THREE VIEWS) HISTORY: M25.531, right wrist pain, 54-year-old female. COMPARISON: None. TECHNIQUE: Four views right wrist including ulnar deviated scaphoid view. FINDINGS: There is no significant degenerative change for age. No fracture or dislocation. IMPRESSION: Negative right wrist. [facility]-FairhillIVONNEHemoglobin A1Con 47-89-3237CqJ3x (Bld) [Mass fraction]269 {MG/DL}CC-Womeekbecwzkh-RbefoppHudson Hospital Work Phone: [phone] (Bld) [Mass fraction]11.0 % IZ-Rhabwlolsjfjx-YectlhfHudson Hospital Work Phone: [phone] on above:Diagnosis of Diabetes-Adults Non- Diabetic: < or = 5.6% Increased risk for developing diabetes: 5.7-6.4% Diagnostic of diabetes: > or = 6.5%. Monitoring of Diabetes Age (y) Therapeutic Goal (%) Adults: >18 <7.0 Pediatrics: 13-18 <7.5 7-12 <8.0 0- 6 7.5-8.5 [place] [employer]. Diabetes Care 33(S1), Apr 2009.Metabolic Panelon 47-19-0287Vcxpk gap [Moles/Vol]11 mmol/L10 - 46OA-Bghuuamprndfv-FymkhvoHudson Hospital Work Phone: [phone] [Mass/Vol]9.6 mg/dL8.6 - 10.6 RR-Snrtpkvpjtclb-HxjwrexHudson Hospital Work Phone: [phone] [Moles/Vol]102 mmol/L98 - 107 ZC-Thrreylutuewg-SvyrpngHudson Hospital Work Phone: [phone] [Moles/Vol]30 mmol/L21 - 32 XL-Mvylsazekvnyq-NoonsrlHudson Hospital Work Phone: [phone] [Mass/Vol]0.73 mg/dLSee Below SZ-Mtucicscrcbiw-SbmnpdbHudson Hospital Work Phone: [phone] on above:Reference Range: 0.50 - 1.05Glucose [Mass/Vol]320 mg/dLabove high sunrdxxjm08 - 04FY-Pkyapjshpdfei-RbofarhHudson Hospital Work Phone: [phone] [Moles/Vol]4.1 mmol/L3.5 - 5.3 FJ-Sppenccavbavp-SrlmcckHudson Hospital Work Phone: [phone] [Moles/Vol]139 mmol/L136 - 145 XY-Dtcqedsnzuqfy-CxvbftrHudson Hospital Work Phone: Urea nitrogen [Mass/Vol]16 mg/dL6 - 23 UB-Qscvkjkcrehax-ZjooouiHudson Hospital Work Phone: Otheron 02-18-2019>60>50UN-Yeztvektrjgef-PzmngoyHudson Hospital Work Phone: comment on above:CALCULATIONS OF ESTIMATED GFR ARE PERFORMED USING THE MDRD STUDY EQUATION FOR THE IDMS-TRACEABLE CREATININE METHODS. CLIN CHEM 2007;53:766-72 Vital Signs Date TimeVital SignValuePerforming FugcwjjsuWgzqthcd52-39-9256 11:23-0400Body .64 cmBenjamin Ball DO Work Phone: [phone]09-17-2025 11:23-0400 Body mass index (BMI) [Ratio]25.8 kg/u4Erwohqwl Ball DO Work Phone: [phone]09-17-2025 11:23-0400 Body rlektp83.57 kgBenjamin Ball DO Work Phone: [phone]09-17-2025 11:04-0400 Body wturewljusp92.7 [degF]Juliette Ball DO Work Phone: [phone]09-17-2025 11:04-0400 Diastolic blood rkzabmak20 mm[Hg]Juliette Ball DO Work Phone: [phone]09-17-2025 11:04-0400 Heart rate73 /minBenjamin Ball DO Work Phone: [phone]09-17-2025 11:04-0400 Respiratory rate18 /minBenjamin Ball DO Work Phone: [phone]09-17-2025 11:04-0400 Systolic blood mm[Hg]Juliette Ball DO Work Phone: [phone]09-12-2025 11:30-0400 Body lufgeo213.64 cmBenjamin Ball DO Work Phone: [phone]09-12-2025 11:30-0400 Diastolic blood bwfanzqs91 mm[Hg]Juliette Ball DO Work Phone: [phone])[address] [place], [place] 5576709-12-2025 11:30-0400 Heart rate86 /minBenjamin Ball DO Work Phone: [phone])[address] [place], [place] 5576709-12-2025 11:30-0400 Respiratory rate12 /minBenjamin Ball DO Work Phone: [phone])[address] [place], [place] 5576709-12-2025 11:30-0400 Systolic blood xiqhuygd960 mm[Hg]Juliette Ball DO Work Phone: [phone])[address] [place], [place] 5576708-27-2025 11:22-0400 Body .64 cmBenjamin Ball DO Work Phone: [phone])[address] [place], [place] 5576708-27-2025 11:22-0400 Body mass index (BMI) [Ratio]25.8 kg/c3Jmcydoml Ball DO Work Phone: [phone])[address] [place], [place] 5576708-27-2025 11:22-0400 Body tgcuwf51.57 kgBenjamin Ball DO Work Phone: [phone])[address] [place], [place] 5576708-27-2025 11:09-0400 Body ohrnfrcziip62.4 [degF]Juliette Ball DO Work Phone: [phone])[address] [place], [place] 5576708-27-2025 11:09-0400 Diastolic blood kyknmplv96 mm[Hg]Juliette Ball DO Work Phone: [phone])[address] [place], [place] 5576708-27-2025 11:09-0400 Heart rate77 /minBenjamin Ball DO Work Phone: [phone])[address] [place], [place] 5576708-27-2025 11:09-0400 Respiratory rate18 /minBenjamin Ball DO Work Phone: [phone])[address] [place], [place] 5576708-27-2025 11:09-0400 Systolic blood mm[Hg]Juliette Ball DO Work Phone: [phone] [place] [address] Gqsufn64-08-3422 10:15-0400 Body .64 cmBenjamin Ball DO Work Phone: [facility]08-06-2025 10:15-0400 Diastolic blood mskoudfn15 mm[Hg]Juliette Ball DO Work Phone: [facility]08-06-2025 10:15-0400 Heart rate82 /minBenjamin Ball DO Work Phone: [phone]08-06-2025 10:15-0400 Respiratory rate12 /minBenjamin Ball DO Work Phone: [facility]08-06-2025 10:15-0400 Systolic blood qankclpr623 mm[Hg]Juliette Ball DO Work Phone: [facility]07-09-2025 14:10-0400 Body pkodkr906.6 cmVictdali Sidney PA-C Work Phone: [phone]07-09-2025 14:10-0400Body mass index (BMI) [Ratio]27.76 kg/o9Ykjkvzbq Sidney PA-C Work Phone: [phone]07-09-2025 14:10-0400Body zorcls13.02 kgVicyue Sidney PA-C Work Phone: [phone]07-09-2025 14:10-0400Diastolic blood prgergyx16 mm[Hg]Bianca Sidney PA-C Work Phone: [phone]07-09-2025 14:10-0400Heart rate80 /min Bianca Sidney PA-C Work Phone: [phone]07-09-2025 14:10-4186IsT9% (BldA) [Mass fraction]97 %Bianca Sidney PA-C Work Phone: [phone]07-09-2025 14:10-0400Systolic blood vacqkeeu664 mm[Hg]Bianca Sidney PA-C Work Phone: [phone]06-26-2025 13:120400Diastolic blood clcjfivx26 mm[Hg]Marlene Schwieterman PA-C Work Phone: cMer[facility] Charles HospitalWwbope95-58-3865 13:120400Heart rate75 /min Marlene Schwieterman PA-C Work Phone: cMer[facility] Charles HospitalTykpso05-40-4935 13:124088GbE5% (BldA) [Mass fraction]97 %Marlene Schwieterman PA-C Work Phone: [phone] [facility] St. Charles HospitalBpqnzu54-21-0061 13:120400Systolic blood mm[Hg]Marlene Schwieterman PA-C Work Phone: cMer[facility] Charles HospitalWvgjhz07-10-0469 14:34-0400Body gbjqax676.64 cmBenjamin Ball DO Work Phone: [facility]04-22-2025 14:34-0400 Body mass index (BMI) [Ratio]23.8 kg/o4Oyltiuqy Ball DO Work Phone: [facility]04-22-2025 14:34-0400 Body siwagq30.13 kgBenjamin Ball DO Work Phone: [facility]04-22-2025 14:34-0400 Diastolic blood rawxcgqp80 mm[Hg]Juliette Ball DO Work Phone: [facility]04-22-2025 14:34-0400 Heart rate89 /minBenjamin Ball DO Work Phone: [facility]04-22-2025 14:34-0400 Respiratory rate12 /minBenjamin Ball DO Work Phone: [facility]04-22-2025 14:34-0400 Systolic blood mm[Hg]Juliette Ball DO Work Phone: [facility]04-18-2025 08:57-0400 Body mfxaje269.1 cmCaleb Schwieterman PA-C Work Phone: [phone] Health St. Charles HospitalFmckdv47-14-4516 08:57-0400Body mass index (BMI) [Ratio]24.63 kg/v3Vymle Schwieterman PA-C Work Phone: [phone] [address]-18-2025 08:57-0400Body .13 kgCaleb Schwieterman PA-C Work Phone: [phone] medical specialty hospital - akronand Jssedh21-57-0651 08:57-0400Diastolic blood naptugdh37 mm[Hg]Marlene Schwieterman PA-C Work Phone: [phone] medical specialty hospital - [facility]ronand Bcsifx18-80-9899 08:57-0400Heart rate77 /min Marlene Schwieterman PA-C Work Phone: [phone] Health St. Charles HospitalPoxbid22-08-0024 08:57-9318MqH4% (BldA) [Mass fraction]99 %Marlene Schwieterman PA-C Work Phone: [phone] Health St. Charles HospitalHdomlc88-75-2898 08:57-0400Systolic blood hcdtfpec624 mm[Hg]Marlene Schwieterman PA-C Work Phone: [phone] Health St. Charles HospitalSfgyyr70-97-9525 11:25-0400Body .64 cmBenjamin Ball DO Work Phone: [facility]04-17-2025 11:25-0400 Body mass index (BMI) [Ratio]23.8 kg/n8Iygoqupd Ball DO Work Phone: [facility]04-17-2025 11:25-0400 Body trmwyx20.13 kgBenjamin Ball DO Work Phone: [facility]04-17-2025 11:03-0400 Body cratgvgjyrr29 [degF]Juliette Ball DO Work Phone: [facility]04-17-2025 11:03-0400 Diastolic blood khnkjizs18 mm[Hg]Juliette Ball DO Work Phone: [facility]04-17-2025 11:03-0400 Heart rate79 /minBenjamin Ball DO Work Phone: [phone])353-[address] [place], [place] 7035504-17-2025 11:03-0400 Respiratory rate18 /minBenjamin Ball DO Work Phone: [phone])372-[address] [place], [place] 7035504-17-2025 11:03-0400 Systolic blood mm[Hg]Juliette Ball DO Work Phone: [phone])115-[address] [place], [place] 7035504-10-2025 15:23-0400 Body zhgbfe614.64 cmBenjamin Ball DO Work Phone: [phone])[address] [place], [place] 5576704-10-2025 15:23-0400 Body mass index (BMI) [Ratio]23.8 kg/g7Ehteyxmy Ball DO Work Phone: 1(612)[address] [place], [place] 5576704-10-2025 15:23-0400 Body .13 kgBenjamin Ball DO Work Phone: 1([phone])[address] [place], [place] 5576704-10-2025 14:54-0400 Body jtdyjsrogsm99.7 [degF]Juliette Ball DO Work Phone: 1(739)[facility] [place], [place] 7035504-10-2025 14:54-0400 Diastolic blood rpkfaexv03 mm[Hg]Juliette Ball DO Work Phone: 1(117)[facility] [place], [place] 7035504-10-2025 14:54-0400 Heart rate90 /minBenjamin Ball DO Work Phone: [phone])532-[address] [place], [place] 7035504-10-2025 14:54-0400 Respiratory rate18 /minBenjamin Ball DO Work Phone: [phone] [place], [place] 7035504-10-2025 14:54-0400 Systolic blood mm[Hg]Juliette Ball DO Work Phone: [phone])364-[address] [place], [place] 7035504-08-2025 15:21-0400 Body qhxlgyslzly724.09 [degF]Noel Daniels MD Work Phone: [facility]04-08-2025 15:21-0400Diastolic blood pgqoqxck59 mm[Hg]Noel Daniels MD Work Phone: [phone]04-08-2025 15:21-0400Heart rate81 /min Noel Daniels MD Work Phone: [phone]04-08-2025 15:21-4135FhJ1% (BldA) [Mass fraction]98 %Noel Daniels MD Work Phone: [phone]04-08-2025 15:21-0400Systolic blood clgejraa590 mm[Hg]Noel Daniels MD Work Phone: [phone]04-03-2025 12:45-0400Diastolic blood xswdigtl85 mm[Hg]Marlene Schwieterman PA-C Work Phone: [phone] [facility] St[facility] Charles HospitalJzndez55-83-6371 12:45-0400Heart rate65 /min Marlene Schwieterman PA-C Work Phone: [phone] [facility] St. Charles HospitalXugker27-30-3960 12:45-5304AsC9% (BldA) [Mass fraction]99 %Marlene Schwieterman PA-C Work Phone: [phone] St. Charles HospitalWtnevw66-43-2099 12:45-0400Systolic blood mm[Hg]Marlene Schwieterman PA-C Work Phone: [phone] Health St. Charles HospitalLlesfn09-94-1130 13:09-0400Body gbpupk874.64 cmBenjamin Ball DO Work Phone: [facility]03-20-2025 13:09-0400 Body mass index (BMI) [Ratio]23.8 kg/z5Ybzjnpcb Ball DO Work Phone: [facility]03-20-2025 13:09-0400 Body wrtuie00.13 kgBenjamin Ball DO Work Phone: [facility]03-20-2025 13:01-0400 Body ocjycjxaasr70.9 [degF]Juliette Ball DO Work Phone: 1(182)181-[address] [place], [place] 7035503-20-2025 13:01-0400 Diastolic blood naigvlsc84 mm[Hg]Julietet Ball DO Work Phone: 1(705)[address] [place], [place] 5576703-20-2025 13:01-0400 Heart rate78 /minBenjamin Ball DO Work Phone: [phone])[address] [place], [place] 5576703-20-2025 13:01-0400 Respiratory rate20 /minBenjamin Ball DO Work Phone: [phone])[address] [place], [place] 5576703-20-2025 13:01-0400 Systolic blood mm[Hg]Juliette Ball DO Work Phone: 1(597)[address] [place], [place] 5576703-07-2025 13:37-0500 Body .64 cmBenjamin Ball DO Work Phone: 1(309)[address] [place], [place] 5576703-07-2025 13:37-0500 Body mass index (BMI) [Ratio]23.8 kg/i5Gupdxuye Ball DO Work Phone: 1(662)[address] [place], [place] 5576703-07-2025 13:37-0500 Body uhmwwm73.13 kgBenjamin Ball DO Work Phone: 1(850)[address] [place], [place] 5576703-07-2025 13:37-0500 Diastolic blood novzwvvb54 mm[Hg]Juliette Ball DO Work Phone: 1(982)[address] [place], [place] 5576703-07-2025 13:37-0500 Heart rate79 /minBenjamin Ball DO Work Phone: [phone])[address] [place] [id number] 13:37-0500 Respiratory rate12 /minBenjamin Ball DO Work Phone: [phone])[address] [place], [place] 5576703-07-2025 13:37-0500 Systolic blood kgpaidyu411 mm[Hg]Juliette Ball DO Work Phone: 1(265)[address] [place], [place] 5576703-06-2025 15:41-0500 Body kddcem986.64 cmBenjamin Ball DO Work Phone: 1(287)[address] [place], [place] 5576703-06-2025 15:41-0500 Body mass index (BMI) [Ratio]23.8 kg/u9Gkftzdkb Ball DO Work Phone: 1(419)[address] [place], [place] 5576703-06-2025 15:41-0500 Body .13 kgBenjamin Ball DO Work Phone: 1(419)[address] [place], [place] 5576703-06-2025 15:23-0500 Body zdyxfrvjzdk54.7 [degF]Juliette Ball DO Work Phone: 1(419)[address] [place], [place] 5576703-06-2025 15:23-0500 Diastolic blood qhqeaidq10 mm[Hg]Juliette Ball DO Work Phone: 1(419)[address] [place], [place] 5576703-06-2025 15:23-0500 Heart rate81 /minBenjamin Ball DO Work Phone: 1(419)[address] [place], [place] 5576703-06-2025 15:23-0500 Respiratory rate16 /minBenjamin Ball DO Work Phone: 1(419)[address] [place], [place] 5576703-06-2025 15:23-0500 Systolic blood lhwadurq643 mm[Hg]Juliette Ball DO Work Phone: 1(419)[address] [place], [place] 5576702-25-2025 11:51-0500 Body zihqfthenkn15.2 [degF]Juliette Ball DO Work Phone: 1(419)[address] [place], [place] 5576702-25-2025 11:51-0500 Diastolic blood yravkxca06 mm[Hg]Juliette Ball DO Work Phone: 1(419)[address] [place], [place] 5576702-25-2025 11:51-0500 Heart rate82 /minBenjamin Ball DO Work Phone: 1(419)[address] [place], [place] 5576702-25-2025 11:51-0500 Respiratory rate16 /minBenjamin Ball DO Work Phone: 1(419)[address] [place], [place] 5576702-25-2025 11:51-0500 SaO2% (BldA) [Mass fraction]98 %Juliette Ball DO Work Phone: 1(419)[address] [place], [place] 5576702-25-2025 11:51-0500 Systolic blood dyyacjkf696 mm[Hg]Juliette Ball DO Work Phone: [phone])[address] [place], [place] 5576702-18-2025 09:46-0500 Body ywvaoj380.64 cmBenjamin Ball DO Work Phone: [phone])[address] [place], [place] 5576702-18-2025 09:46-0500 Body mass index (BMI) [Ratio]23.8 kg/s2Sufwmvdz Ball DO Work Phone: 1(419)[address] [place], [place] 5576702-18-2025 09:46-0500 Body mcvaan40.13 kgBenjamin Ball DO Work Phone: 1419)[address] [place], [place] 5576702-18-2025 09:27-0500 Body .6 [degF]Juliette Ball DO Work Phone: [phone])[address] [place], [place] 5576702-18-2025 09:27-0500 Diastolic blood ucisospd06 mm[Hg]Juliette Ball DO Work Phone: 1(419)[address] [place], [place] 5576702-18-2025 09:27-0500 Heart rate71 /minBenjamin Ball DO Work Phone: [phone])[address] [place], [place] 5576702-18-2025 09:27-0500 Respiratory rate18 /minBenjamin Ball DO Work Phone: [phone])[address] [place], [place] 5576702-18-2025 09:27-0500 Systolic blood rifwgplt980 mm[Hg]Juliette Ball DO Work Phone: 1(419)[address] [place], [place] 5576702-06-2025 12:07-0500 Body .64 cmBenjamin Ball DO Work Phone: [phone])[address] [place], [place] 5576702-06-2025 12:07-0500 Body mass index (BMI) [Ratio]23.8 kg/j0Ecusmbrf Ball DO Work Phone: 1419)[address] [place], [place] 5576702-06-2025 12:07-0500 Body uidyyi48.13 kgBenjamin Ball DO Work Phone: 1(419)483-[address] [place], [place] 7035502-06-2025 12:07-0500 Diastolic blood pqonmwiu75 mm[Hg]Juliette Ball DO Work Phone: 1(339)[facility] [place], [place] 7035502-06-2025 12:07-0500 Heart rate97 /minBenjamin Ball DO Work Phone: 1(859)[facility] [place], [place] 7035502-06-2025 12:07-0500 Systolic blood ldpxemcy578 mm[Hg]Juliette Ball DO Work Phone: 1(188)[address] [place], [place] 5576702-04-2025 14:44-0500 Body octgmb310.64 cmBenjamin Ball DO Work Phone: 1(165)[address] [place], [place] 5576702-04-2025 14:44-0500 Body mass index (BMI) [Ratio]23.8 kg/t0Glnbopgt Ball DO Work Phone: 1(875)[address] [place], [place] 5576702-04-2025 14:44-0500 Body aadbvn35.13 kgBenjamin Ball DO Work Phone: 1(386)[address] [place], [place] 5576702-04-2025 14:25-0500 Body xklgacaiwqk95.4 [degF]Juliette Ball DO Work Phone: 1(486)[facility] [place], [place] 7035502-04-2025 14:25-0500 Diastolic blood uodcmxis20 mm[Hg]Juliette Ball DO Work Phone: 1(337)[address] [place], [place] 5576702-04-2025 14:25-0500 Heart rate79 /minBenjamin Ball DO Work Phone: 1(699)721-[address] [place], [place] 7035502-04-2025 14:25-0500 Respiratory rate16 /minBenjamin Ball DO Work Phone: 1(026)[facility] [place], [place] 7035502-04-2025 14:25-0500 Systolic blood zpynfktd842 mm[Hg]Juliette Ball DO Work Phone: 1(666)[address] [place], [place] 5576701-14-2025 13:20-0500 Body nycqjw462.64 [facility] 13:20-0500 Diastolic blood srxetpea88 mm[Hg][facility]01-14-2025 13:20-0500Heart rate73 /[facility]01-14-2025 13:20-0500Respiratory rate12 /[facility]01-14-2025 13:20-0500Systolic blood bjjhymaw395 mm[Hg][facility] 04-22-2024 13:28-0500Body qgtljjzievh73.91 [degF]Noel Daniels MD Work Phone: [facility]01-07-2025 13:28-0500Diastolic blood glekqpeb11 mm[Hg]Noel Daniels MD Work Phone: [facility]01-07-2025 13:28-0500Heart rate75 /min Noel Daniels MD Work Phone: [facility]01-07-2025 13:28-0500Systolic blood roreiiuy914 mm[Hg]Noel Daniels MD Work Phone: [phone]12-31-2024 11:44-0500Body temperature 99.5 [degF]Noel Daniels MD Work Phone: [facility]12-31-2024 11:44-0500Diastolic blood tisqxmde78 mm[Hg]Noel Daniels MD Work Phone: [phone]12-31-2024 11:44-0500Heart rate75 /min Noel Daniels MD Work Phone: [phone]12-31-2024 11:44-0500Systolic blood qbwcptym409 mm[Hg]Noel Daniels MD Work Phone: [phone]12-26-2024 13:32-0500Diastolic blood fomzjidt25 mm[Hg]Marlene Cordero PA-C Work Phone: [phone] HospitalDvdffe96-92-6616 13:32-0500Heart rate97 /min Marlene Cordero PA-C Work Phone: c[facility] HospitalKqbgry48-03-7702 13:32-7575ZwB3% (BldA) [Mass fraction]96 %Marlene Cordero PA-C Work Phone: c[facility] HospitalGmijpp40-36-8000 13:32-0500Systolic blood qbobllbh001 mm[Hg]Marlene Cordero PA-C Work Phone: [phone] HospitalMgfaxk60-37-5479 12:08-0500Body temperature 98.8 [degF]Jamie Mccarty MD Work Phone: [phone] [facility] [address] Charles HospitalYkxzrm80-47-2294 12:08-0500Diastolic blood zotwvfbp18 mm[Hg]Jamie Mccarty MD Work Phone: c[facility] HospitalVqsgmy98-12-2139 12:08-0500Heart rate97 /min Jamie Mccarty MD Work Phone: [phone])[phone] St[facility] Charles HospitalZksgmx45-35-0735 12:08-0500Respiratory rate 18 /minJamie Mccarty MD Work Phone: [phone] [facility] St[facility] Charles HospitalZgmioa10-66-3093 12:08-7239AmX7% (BldA) [Mass fraction]96 %Jamie Mccarty MD Work Phone: c[facility] HospitalBhorhx68-91-0712 12:08-0500Systolic blood pkzrtmpo108 mm[Hg]Jamie Mccarty MD Work Phone: [phone] [facility] [address] HospitalZhsvua91-08-8219 10:57-0500Diastolic blood mretunzc44 mm[Hg]Reggie Butler MD Work Phone: [phone]12-06-2024 10:57-0500Heart rate86 /min Reggie Butler MD Work Phone: [facility]12-06-2024 10:57-3369MjM7% (BldA) [Mass fraction]100 %Reggie Butler MD Work Phone: [phone]12-06-2024 10:57-0500Systolic blood sztglsus192 mm[Hg]Reggie Butler MD Work Phone: [facility]12-03-2024 09:10-0500Diastolic blood qxnbeqzb41 mm[Hg]Shelbi Ramos MD Work Phone: [facility]12-03-2024 09:10-0500Heart rate75 /min Shelbi Ramos MD Work Phone: [facility]12-03-2024 09:10-0500Systolic blood ohavravr003 mm[Hg]Shelbi Ramos MD Work Phone: [facility]11-11-2024 16:02-0500Body zgeitw880.64 [facility]11-[facility]-2024 16:02-0500Body mass index (BMI) [Ratio]23.8 kg/v2VnsxzimxzTwin City Hospital11-11-2024 16:02-0500Body qoowxn75.13 kgT[facility]11-11-2024 16:02-0500Diastolic blood yazlljow19 mm[Hg][facility]11-11-2024 16:02-0500 Heart rate86 /[facility]11-11-2024 16:02-0500 Respiratory rate12 /[facility]11-11-2024 16:02-0500 Systolic blood ivzzdtjh774 mm[Hg][facility]10-30-2024 09:49-0400Body mqrezp123.1 Cornelius Oconnor MD Work Phone: [facility]10-30-2024 09:49-0400Body mass index (BMI) [Ratio]24.63 kg/v3GrtfqtsCon Oconnor MD Work Phone: [facility]10-30-2024 09:49-0400Body dxxdap80.13 Sri Oconnor MD Work Phone: [facility]10-30-2024 09:49-0400Diastolic blood soquskjb27 mm[Hg]Con Oconnor MD Work Phone: [facility]10-30-2024 09:49-0400Heart rate79 /min Con Oconnor MD Work Phone: [facility]10-30-2024 09:49-9832KeB3% (BldA) [Mass fraction]100 %Con Oconnor MD Work Phone: [facility]10-30-2024 09:49-0400Systolic blood wecyjuzd190 mm[Hg]Con Oconnor MD Work Phone: [facility]10-25-2024 14:54-0400Diastolic blood hqczsduy85 mm[Hg]Con Oconnor MD Work Phone: [facility]10-25-2024 14:54-0400Heart rate89 /min Con Oconnor MD Work Phone: 1)671[facility]10-25-2024 14:54-7305ZkL9% (BldA) [Mass fraction]98 %Con Oconnor MD Work Phone: [phone]10-25-2024 14:54-0400Systolic blood ytivgxtv161 mm[Hg]Con Oconnor MD Work Phone: [phone]10-23-2024 11:18-0400Body mass index (BMI) [Ratio]24.63 kg/s3GjbvciRuddy Gupta MD Work Phone: [facility]10-23-2024 11:18-0400Body ydjyrs11.13 kgRuddy Gupta MD Work Phone: [facility]:patient reported 02-06-2024 11:18-0400Diastolic blood kvfhoqpx95 mm[Hg]Ruddy Gupta MD Work Phone: [facility]10-23-2024 11:18-0400Heart rate74 /min Ruddy Gupta MD Work Phone: [facility]10-23-2024 11:18-0400Systolic blood ctpysrdb023 mm[Hg]Ruddy Gupta MD Work Phone: [facility]09-27-2024 14:39-0400Body qrhemd560.1 Wili Daniels MD Work Phone: [place] [address]-27-2024 14:39-0400Body mass index (BMI) [Ratio]24.63 kg/v2GgvjxNoel Daniels MD Work Phone: [place] [address]-27-2024 14:39-0400Body hagiyb55.13 kgNoel Daniels MD Work Phone: [phone] [address]-27-2024 14:39-0400Diastolic blood wpzvpgos78 mm[Hg]Noel Daniels MD Work Phone: [phone] [address]-27-2024 14:39-0400Heart rate61 /min Noel Daniels MD Work Phone: [phone] [address]-27-2024 14:39-8717MdV4% (BldA) [Mass fraction]100 %Noel Daniels MD Work Phone: [phone] [address]-27-2024 14:39-0400Systolic blood avbuyric106 mm[Hg]Noel Daniels MD Work Phone: [phone] [address]-26-2024 15:15-0400Body mass index (BMI) [Ratio]24.87 kg/y7HuzeucJamie Mccarty MD Work Phone: [phone] Health St. Charles HospitalCnbaiv04-12-6930 15:15-0400Body temperature 97.59 [degF]Jamie Mccarty MD Work Phone: [phone] [address]-26-2024 15:15-0400Body ahmwpt54.85 kgJamie Mccarty MD Work Phone: [phone] [address]-26-2024 15:15-0400Diastolic blood goxhcnxw10 mm[Hg]Jamie Mccarty MD Work Phone: [phone] [address]-26-2024 15:15-0400Heart rate68 /min Jamie Mccarty MD Work Phone: [phone] [address]-26-2024 15:15-0400Respiratory rate 18 /minJamie Mccarty MD Work Phone: c[facility] HospitalUfojie21-14-7538 15:15-3726LaD6% (BldA) [Mass fraction]97 %Jamie Mccarty MD Work Phone: c[facility] HospitalGjfhol57-80-3383 15:15-0400Systolic blood ajakfqxd952 mm[Hg]Jamie Mccarty MD Work Phone: c[facility] HospitalMaivux52-12-5714 09:00-0400Respiratory rate 16 /minSharan Dominguez PROCUREMENT DIRECTOR.STABLE HELPER Work Phone: [facility]09-06-2024 11:17-0400Body temperature 98.01 [degF]Jamie Mccarty MD Work Phone: c[facility] HospitalQpihqp31-78-3436 11:17-0400Diastolic blood mm[Hg]Jamie Mccarty MD Work Phone: [facility] HospitalUsholz17-72-3432 11:17-0400Heart rate60 /min Jamie Mccarty MD Work Phone: [facility] HospitalJlvhfi64-22-4912 11:17-0400Respiratory rate 16 /minJamie Mccarty MD Work Phone: [facility] HospitalHykbbi84-91-1795 11:17-6746LhL6% (BldA) [Mass fraction]100 %Jamie Mccarty MD Work Phone: [facility] HospitalBjocbn76-63-3985 11:17-0400Systolic blood rvzipyeo153 mm[Hg]Jamie Mccarty MD Work Phone: [facility] HospitalApvtzb01-13-6875 09:21-0400Diastolic blood jspkxijd40 mm[Hg]Reggie Butler MD Work Phone: [facility]09-06-2024 09:21-0400Heart rate75 /min Reggie Butler MD Work Phone: [facility]09-06-2024 09:21-3797DqG7% (BldA) [Mass fraction]98 %Reggie Butler MD Work Phone: [facility]09-06-2024 09:21-0400Systolic blood pytqkxva250 mm[Hg]Reggie Butler MD Work Phone: [phone]08-20-2024 10:40-0400Body .6 Wili Daniels MD Work Phone: [phone]08-20-2024 10:40-0400Body mass index (BMI) [Ratio]24.87 kg/h0RsosqNoel Daniels MD Work Phone: [phone]08-20-2024 10:40-0400Body temperature 98.01 [degF]Noel Daniels MD Work Phone: [phone]08-20-2024 10:40-0400Body gyqbun86.85 kgNoel Daniels MD Work Phone: [phone]08-20-2024 10:40-0400Diastolic blood iejpvzfw06 mm[Hg]Noel Daniels MD Work Phone: [phone]08-20-2024 10:40-0400Heart rate81 /min Noel Daniels MD Work Phone: [phone]08-20-2024 10:40-0400Systolic blood akoqhsro718 mm[Hg]Noel Daniels MD Work Phone: [phone]08-02-2024 16:01-0400Body temperature 98.1 [degF]Jamie Mccarty MD Work Phone: [phone] St. Charles HospitalRcnfio44-35-1065 16:01-0400Diastolic blood czurqmtl08 mm[Hg]Jamie Mccarty MD Work Phone: [phone] [facility] [address] Charles HospitalJzwuhv26-63-5722 16:01-0400Heart rate79 /min Jamie Mccarty MD Work Phone: [phone] Rygppw90-90-7924 16:01-0400Respiratory rate 16 /minJamie Mccarty MD Work Phone: [phone] Health St. Charles HospitalWfador16-24-1382 16:01-3817EpB4% (BldA) [Mass fraction]100 %Jamie Mccarty MD Work Phone: [facility] Dmjqpk90-12-5482 16:01-0400Systolic blood mm[Hg]Jamie Mccarty MD Work Phone: [facility] Npeyxd41-45-8883 12:43-0400Diastolic blood mm[Hg]Marlene Schwieterman PA-C Work Phone: [facility] Inyvnt85-27-0343 12:43-0400Heart rate66 /min Marlene Schwieterman PA-C Work Phone: [facility] Ishbnf36-03-2285 12:43-9712HrH4% (BldA) [Mass fraction]99 %Marlene Schwieterman PA-C Work Phone: [facility] Cgztyk94-52-0666 12:43-0400Systolic blood jsylenoe234 mm[Hg]Marlene Schwieterman PA-C Work Phone: [facility] Bwjcjt20-18-7710 23:45-0400Hourly Rounding [facility] HospitalComment on above:Result Comment: [facility] here for transport. Report given to the medic.10-06-2023 23:45-0400Hourly RoundC[facility]innati [facility] CenterComment on above:Result Comment: Patient transferred to [facility] via [facility].10-06-2023 23:00-0400Diastolic blood yqrfjnof89 mm[Hg][facility]06-22-2024 23:00-0400Heart rate77 /minMag[facility] Hospital06-22-2024 23:00-0400[facility]ingMag[facility]06-22-2024 23:00-0400Mean blood lgtabbeo52 mm[Hg][facility]06-22-2024 23:00-2955GyF3% (BldA) [Mass fraction]99 %[facility]06-22-2024 23:00-0400Systolic blood pressure 126 mm[Hg][facility]06-22-2024 22:00-0400 Diastolic blood lkrnbmsi06 mm[Hg][facility] 10-06-2023 22:00-0400Heart rate76 /minMag[facility] Hospital06-22-2024 22:00-0400Mean blood fzwvjpho30 mm[Hg][facility]06-22-2024 22:00-0400Respiratory rate16 /[facility] 22:00-2160SlP3% (BldA) [Mass fraction]98 %[facility]06-22-2024 22:00-0400Systolic blood peyxhgjg700 mm[Hg][facility]06-22-2024 21:00-0400Diastolic blood xzfxyesj30 mm[Hg][facility]06-22-2024 21:00-0400Heart rate69 /[facility]06-22-2024 21:00-0400Mean blood mm[Hg][facility]06-22-2024 21:00-0400Respiratory rate18 /[facility]06-22-2024 21:00-6154VbT2% (BldA) [Mass fraction]97 %[facility]06-22-2024 21:00-0400Systolic blood zymdhxaz445 mm[Hg][facility]06-22-2024 20:00-0400Respiratory rate20 /minMag[facility] Hospital 10-06-2023 11:41-0400Body rwxxflskyue72.78 [degF][facility]-22-2024 11:41-0400Heart rate87 /minMag[facility]uder Hospital06-20-2024 12:08-0400Body mass index (BMI) [Ratio]19.69 kg/m2 Jamie Mccarty MD Work Phone: c[facility] HospitalOwxaff10-64-4247 12:08-0400Body temperature 98.1 [degF]Jamie Mccarty MD Work Phone: [phone] St. [facility] HospitalMqjdss07-87-1377 12:08-0400Body wcemyt21.34 kgJamie Mccarty MD Work Phone: c[facility] HospitalQcwezn87-57-2888 12:08-0400Diastolic blood qphdtusm80 mm[Hg]Jamie Mccarty MD Work Phone: [facility] ClinicComment on above:Provider is aware 10-04-2023 12:08-0400Heart rate70 /Rob Mccarty MD Work Phone: c[facility] HospitalUmktiq50-96-5334 12:08-0400Respiratory rate 16 /minJamie Mccarty MD Work Phone: [facility] HospitalZgkvfp54-82-1532 12:08-0170MhL2% (BldA) [Mass fraction]98 %Jamie Mccarty MD Work Phone: [phone] St. Charles HospitalJwqxhn16-63-5474 12:08-0400Systolic blood mm[Hg]Jamie Mccarty MD Work Phone: [facility] ClinicComment on above:Provider is aware 09-25-2023 15:18-0400Body .64 [facility] 09-25-2023 15:18-0400Body mass index (BMI) [Ratio]22.4 kg/t3RlvexqbqiTwin City Hospital06-11-2024 15:18-0400Body gcxuwa19.04 kgT[facility] Hospital06-11-2024 15:18-0400Diastolic blood jkmlvamv41 mm[Hg][facility]06-11-2024 15:18-0400Heart rate78 /[facility]06-11-2024 15:18-0400Respiratory rate12 /[facility]06-11-2024 15:18-0400Systolic blood wgsalmmz257 mm[Hg][facility]06-04-2024 08:12-0400Diastolic blood hbechctv68 mm[Hg]Tonie Rosado MD Work Phone: [facility]06-04-2024 08:12-0400Heart rate74 /min Tonie Rosado MD Work Phone: [facility]06-04-2024 08:12-8144WaM9% (BldA) [Mass fraction]99 %Tonie Rosado MD Work Phone: [facility]06-04-2024 08:12-0400Systolic blood hxcgneir067 mm[Hg]Tonie Rosado MD Work Phone: [facility]05-29-2024 13:21-0400Body duwfqs218.6 cmPeterson Gonsalez MD Work Phone: [facility] HospitalPnebap94-72-7874 09:59-0400Diastolic blood rpcxofwa58 mm[Hg]Marlene Cordero PA-C Work Phone: c[facility] HospitalEuvlue02-40-5943 09:59-0400Heart rate68 /min Marlene Cordero PA-C Work Phone: [phone] St[facility] Charles HospitalHbyilc18-39-0362 09:59-3633MuL0% (BldA) [Mass fraction]99 %Marlene Codrero PA-C Work Phone: [facility] HospitalSupwcc50-21-0190 09:59-0400Systolic blood ypluvwzo268 mm[Hg]Marlene Cordero PA-C Work Phone: [facility] HospitalCveytv28-13-3996 13:12-0400Body ugakit012.64 cmT[facility]04-17-2024 13:12-0400Body mass index (BMI) [Ratio]21.3 kg/f2PnwbnaremTwin City Hospital04-17-2024 13:12-0400Body lqcpoi60.87 kgT[facility] Hospital04-17-2024 13:12-0400Diastolic blood fpycmwcj22 mm[Hg][facility]04-17-2024 13:12-0400 Heart rate86 /[facility]04-17-2024 13:126241SrZ7% (BldA) [Mass fraction]98 %[facility]04-17-2024 13:120400 Systolic blood tulwscfd613 mm[Hg][facility]04-11-2024 11:22-0400Diastolic blood mudojqwc24 mm[Hg]Daniel Figueroa MD Work Phone: 1([phone]sZneytj90-34-9444 11:22-0400Heart rate83 /Giovanna Figueroa MD Work Phone: 1(919) [phone]zPqcmqr58-54-4071 11:223418LzY8% (BldA) [Mass fraction]100 %Daniel Figueroa MD Work Phone: 1(600) [phone]mEwmosp87-03-7612 11:22-040Systolic blood qrqeiwiu971 mm[Hg]Daniel Figueroa MD Work Phone: 1(551) [phone]wKunumr97-76-1266 14:16-0400Body zqbnau788.64 cm [facility]04-02-2024 14:16-0400Body mass index (BMI) [Ratio]22.5 kg/d2JqtenekgaTwin City Hospital04-02-2024 14:16-0400Body .27 kgT[facility] City Hospital04-02-2024 14:16-0400Diastolic blood tpqilmzg74 mm[Hg][facility]04-02-2024 14:16-0400 Heart rate80 /[facility]04-02-2024 14:16-0400 Respiratory rate12 /[facility]04-02-2024 14:16-0400 Systolic blood xxhypfve408 mm[Hg][facility]03-29-2024 07:47-0400Diastolic blood fshccqka71 mm[Hg]Carmel Roldan MD Other Phone: [facility] [employer]03-29-2024 07:47-0400Systolic blood hsquyusx700 mm[Hg]Carmel Roldan MD Other Phone: [facility] [employer]03-29-2024 05:47-0400Body .4 [degF]Carmel Roldan MD Other Phone: [facility] [employer]03-29-2024 05:47-0400Heart rate 87 /minMatthew Jamar LOPEZ Other Phone: [facility] [employer]03-29-2024 05:47-0400 Respiratory rate18 /minMatthew Jamar LOPEZ Other Phone: [facility] [employer]03-29-2024 05:47-7811ZtX1% (BldA) [Mass fraction]100 %Carmel Roldan MD Other Phone: [facility] [employer]03-13-2024 20:33-0400Body jmpijw358.6 cmMattedyta Roldan MD Other Phone: [facility] [employer]03-13-2024 20:33-0400Body mass index (BMI) [Ratio]25.73 kg/g2Ojoaoviedyta Roldan MD Other Phone: [facility] [employer]03-13-2024 20:33-0400Body zqbrzi14.3 kgMattheorquidea Roldan MD Other Phone: THE [employer]02-12-2024 11:30-0500Body ypkkqb403.64 cmBenjamin Ball Other [employer] Other 02-12-2024 11:30-0500Body mass index (BMI) [Ratio] 23.08 kg/r4Rdwksfys Ball Other [employer] Other 02-12-2024 11:30-0500Body ujpjry64.86 kgBenjamin Ball Other [facility] [employer] Other 02-12-2024 11:30-0500Diastolic blood pixhrunp98 mm[Hg] Juliette Ball Other [place] [employer] Other 02-12-2024 11:30-0500Respiratory rate12 /minBenjamin Ball Other [place] [employer] Other 02-12-2024 11:30-0500Systolic blood mm[Hg] Juliette Ball Other [place] [employer] Other 01-10-2024 11:00-0500Body xznoyl856.64 cmBenjamin Ball Other [facility]01-10-2024 11:00-0500 Body mass index (BMI) [Ratio]23.24 kg/e8Bspcwupl Ball Other [place] [employer] Other 01-10-2024 11:00-0500Body htpnwe26.32 kgBenjamin Ball Other [place] [employer] Other 01-10-2024 11:00-0500[facility] .[facility] 11:00-0500Diastolic blood lysceeae44 mm[Hg] Juliette Ball Other [facility]01-10-2024 11:00-0500 Respiratory rate12 /minBenjamin Ball Other [place] [employer] Other 01-10-2024 11:00-0500Systolic blood cuzidttb477 mm[Hg] Juliette Ball Other [facility]12-04-2023 13:00-0500 Body ttdkqobywtj56.01 [degF]Jamie Mccarty MD Work Phone: [facility] [id number] 13:00-0500Body .6 kgJamie Mccarty MD Work Phone: [facility] [id number] 13:00-0500Diastolic blood gsdyagxc83 mm[Hg]Jamie Mccarty MD Work Phone: [facility] [id number] 13:00-0500Heart rate69 /min Jamie Mccarty MD Work Phone: [facility] [id number] 13:00-0500Respiratory rate 18 /minJamie Mccarty MD Work Phone: [facility] HospitalXcdngf61-17-1824 13:00-6863QwO7% (BldA) [Mass fraction]98 %Jamie Mccarty MD Work Phone: [facility] [id number] 13:00-0500Systolic blood gbykpaza821 mm[Hg]Jamie Mccarty MD Work Phone: [facility] [phone] 10:45-0500Body .64 cmShelbi Lopez Other [employer] Other 11-17-2023 10:45-0500Body mass index (BMI) [Ratio]23.4 kg/u1SnhcdymeShelbi Lopez Other [employer] Other 11-17-2023 10:45-0500Body tsjmdeqithz20.5 [degF] Shelbi John Other [employer] Other 11-17-2023 10:45-0500Body royaty99.77 kgShelbi Lopez Other [employer] Other 11-17-2023 10:45-0500Diastolic blood aotzvrhc27 mm[Hg] Shelbi Saabrandy Other [employer] Other 11-17-2023 10:45-0713HcM2% (BldA) [Mass fraction]98 % Shelbi Lopez Other [employer] Other 11-17-2023 10:45-0500Systolic blood iziprqdj562 mm[Hg] Shelbi Lopez Other [employer] Other 10-05-2023 10:30-0400Body vwdqyg749.64 cmBenjamin Ball Other [employer] Other 10-05-2023 10:30-0400Body mass index (BMI) [Ratio] 22.17 kg/j4Vjlvifjt Ball Other [employer] Other 10-05-2023 10:30-0400Body woixvr89.32 kgBenjamin Ball Other [employer] Other 10-05-2023 10:30-0400Diastolic blood wynmirkp55 mm[Hg] Juliette Ball Other [employer] Other 10-05-2023 10:30-0400Respiratory rate12 /minBenjamin Ball Other [employer] Other 10-05-2023 10:30-0400Systolic blood mm[Hg] Juliette Ball Other [employer] Other 10-02-2023 13:00-0400Body tswoalmgasp81.01 [degF] Jamie Mccarty MD Work Phone: [phone] Rhqvwi99-18-2677 13:00-0400Body omevbf59.78 kgJamie Mccarty MD Work Phone: [phone] Zcshgy38-88-3390 13:00-0400Diastolic blood gjssouys62 mm[Hg]Jamie Mccarty MD Work Phone: [phone] Nbyshu11-38-6786 13:00-0400Heart rate69 /min Jamie Mccarty MD Work Phone: [phone] Nadtes35-77-2535 13:00-0400Respiratory rate 18 /minJamie Mccarty MD Work Phone: [phone] Health St[facility] HospitalWrfwnf21-35-3454 13:00-1230MuC1% (BldA) [Mass fraction]98 %Jamie Mccarty MD Work Phone: [phone] Health St[facility] Charles HospitalVrfcnd99-08-8431 13:00-0400Systolic blood zpnaacik999 mm[Hg]Jamie Mccarty MD Work Phone: [phone] Health St. Charles HospitalInwqcs15-99-3619 10:12-0400Body temperature 97.9 [degF]Peterson Gonsalez MD Work Phone: [phone] Health St[facility] Charles HospitalQivqoj94-57-3549 10:12-0400Body cuibkv80.15 kgPeterson Gonsalez MD Work Phone: [phone] Health St. [facility] HospitalIxccgo47-59-8981 10:12-0400Diastolic blood fxojtlho25 mm[Hg]Peterson Gonsalez MD Work Phone: [phone] Tmhsjl95-19-9874 10:12-0400Heart rate71 /min Peterson Gonsalez MD Work Phone: [phone] Gyszxo80-69-8918 10:12-0400Systolic blood yyeutibt089 mm[Hg]Peterson Gonsalez MD Work Phone: [phone] Rjtkja07-51-4298 13:40-0400Diastolic blood qhyioluo94 mm[Hg]Marlene Schwieterman PA-C Work Phone: [phone] Health St. Charles HospitalVadczw37-43-5054 13:40-0400Heart rate72 /min Marlene Schwieterman PA-C Work Phone: [phone] Wvdbfo45-39-4189 13:40-9953MyC7% (BldA) [Mass fraction]98 %Marlene Schwieterman PA-C Work Phone: [phone] Uqzzbb77-63-2295 13:40-0400Systolic blood ahxeeiyz383 mm[Hg]Marlene Baxtererman PA-C Work Phone: [phone] Health St. Charles HospitalFhekxj48-86-5193 10:09-0400Body temperature 98.1 [degF]Jamie Mccarty MD Work Phone: [phone] Health St. Charles HospitalGnfenv91-49-7685 10:09-0400Body lwupwl46.25 kgJamie Mccarty MD Work Phone: [phone] Health St. Charles HospitalGulavf74-67-5127 10:09-0400Diastolic blood kkcjlfiw97 mm[Hg]Jamie Mccarty MD Work Phone: [phone] Health St. [facility] HospitalIsfluy46-65-8702 10:09-0400Heart rate79 /min Jamie Mccarty MD Work Phone: [phone] Health St. Charles HospitalJhcygz47-03-2758 10:09-0400Respiratory rate 18 /minJamie Mccarty MD Work Phone: [phone] Health St. Charles HospitalLwsqru03-38-0471 10:09-3289LoK5% (BldA) [Mass fraction]96 %Jamie Mccarty MD Work Phone: [phone] Health St. Charles HospitalTfryro67-81-7176 10:09-0400Systolic blood eolzomug909 mm[Hg]Jamie Mccarty MD Work Phone: [phone] Health St. Charles HospitalQprxih30-81-2102 13:43-0400Body blssew141.64 cmDO Juliette Berumen Work Phone: [facility]06-15-2023 13:43-0400 Body mass index (BMI) [Ratio]17.1 kg/m2DO Juliette Berumen Work Phone: [facility]06-15-2023 13:43-0400 Body yksjpu03.08 kgDO Juliette Ball Work Phone: [facility]06-15-2023 13:35-0400 Body wxxiqkssial76.9 [degF]DO Juliette Ball Work Phone: [facility]06-15-2023 13:35-0400 Diastolic blood dimnktir61 mm[Hg]DO Juliette Ball Work Phone: [facility]06-15-2023 13:35-0400 Heart rate76 /minDO Juliette Ball Work Phone: [facility]06-15-2023 13:35-0400 Respiratory rate18 /minDO Juliette Ball Work Phone: [phone]06-15-2023 13:35-0400 Systolic blood kejnehpk822 mm[Hg]DO Juliette Ball Work Phone: [facility]06-13-2023 11:45-0400 Body smvcra597.64 cmKalli Simons Other [employer] Other 06-13-2023 11:45-0400Body mass index (BMI) [Ratio]4.68 kg/h8EnuutgKalli Simons Other [employer] Other 06-13-2023 11:45-0400Body uvlivg30.15 kgKalli Simons Other [employer] [employer] Other 06-13-2023 11:45-0400Diastolic blood rmfavcww56 mm[Hg] Kalli Simons Other [employer] Other 06-13-2023 11:45-0400Systolic blood ynkepjov775 mm[Hg] Kalli Simons Other [employer] Other 06-08-2023 10:090400Body gbqhup979.6 cmCaleb Schwieterman PA-C Work Phone: [facility] Zfpqxj15-50-6271 10:09-0400Body zujpwe94.25 kgCaleb Schwieterman PA-C Work Phone: [phone] Gnhnbq00-49-6623 10:090Diastolic blood paitrnjj69 mm[Hg]Marlene Schwieterman PA-C Work Phone: [phone] Ajqujo98-07-2388 10:09Heart rate77 /min Marlene Schwieterman PA-C Work Phone: [phone] Xtujnu62-41-9733 10:09-9138ZmK8% (BldA) [Mass fraction]99 %Marlene Schwieterman PA-C Work Phone: [phone] Buezsd02-38-0667 10:090400Systolic blood wzbyacqy463 mm[Hg]Marlene Schwieterman PA-C Work Phone: [phone] Bwaviz97-68-3874 10:30-0400Body kftyef272.64 cmBenjamin Ball Other [employer] Other 06-02-2023 10:30-0400Body mass index (BMI) [Ratio] 20.11 kg/m0Vzscusfa Ball Other [employer] Other 06-02-2023 10:30-0400Body xyjipv10.52 kgBenjamin Ball Other [employer] Other 06-02-2023 10:30-0400Diastolic blood npvigzxp85 mm[Hg] Juliette Ball Other [employer] Other 06-02-2023 10:30-0400Respiratory rate12 /minBenjamin Ball Other [employer] Other 06-02-2023 10:30-0400Systolic blood mm[Hg] Juliette Ball Other [employer] Other 05-12-2023 09:07-0400Diastolic blood wjvxfspu35 mm[Hg] Marlene Schwieterman PA-C Work Phone: [facility] Sphicp45-02-3766 09:07-0400Heart rate86 /min Marlene Schwieterman PA-C Work Phone: [facility] Mofchl96-88-1034 09:07-9873UuV1% (BldA) [Mass fraction]96 %Marlene Schwieterman PA-C Work Phone: [facility] Boxclh08-38-1868 09:07-0400Systolic blood spikhfqp331 mm[Hg]Marlene Schwieterman PA-C Work Phone: [facility] Toioir56-18-9688 11:30-0400Body mvprna654.64 cmBenjamin Ball Other [employer] Other 04-28-2023 11:30-0400Body mass index (BMI) [Ratio] 18.53 kg/e5Omrrjqig Ball Other [employer] Other 04-28-2023 11:30-0400Body azfvkh47.07 kgBenjamin Ball Other [employer] Other 04-28-2023 11:30-0400Diastolic blood mm[Hg] Juliette Ball Other [employer] Other 04-28-2023 11:30-0400Respiratory rate12 /minBenjamin Ball Other [employer] Other 04-28-2023 11:30-0400Systolic blood xtrakezj089 mm[Hg] Juliette [facility]umen [facility] [employer] Other 01-17-2023 13:36-0500Body lqasmj03.17 kgPeterson Gonsalez MD Work Phone: cMer[facility] HospitalQaxcoo45-98-0893 13:36-0500Diastolic blood eaihwytq82 mm[Hg]Peterson Gonsalez MD Work Phone: c[facility] HospitalBhzbbh30-69-0858 13:36-0500Heart xcqk420 /minPeterson Gonsalez MD Work Phone: c[facility] HospitalPglujk27-23-8766 13:36-0500Respiratory rate 15 /minPeterson Gonsalez MD Work Phone: c[facility] HospitalXyvbau51-64-1772 13:36-0500Systolic blood bwrptroa938 mm[Hg]Peterson Gonsalez MD Work Phone: c[facility] HospitalXyxsvo36-77-6517 13:08-0500Body vohycl607.6 cmAemily Montez MD Work Phone: [place] [address]-28-2022 13:08-0500Body temperature 96.91 [degF]Dion Montez MD Work Phone: [place] [address]-28-2022 13:08-0500Body umbjbr25.43 kgDion Montez MD Work Phone: [place] [address]-28-2022 13:08-0500Diastolic blood gpoxopki39 mm[Hg]Dion Montez MD Work Phone: [place] [address]-28-2022 13:08-0500Heart wtxq774 /minDion Montez MD Work Phone: [place] [address]-28-2022 13:08-1972VnQ0% (BldA) [Mass fraction]100 %Dion Montez MD Work Phone: [place] [address]-28-2022 13:08-0500Systolic blood qopywtpm721 mm[Hg]Dion Montez MD Work Phone: [facility]10-17-2022 09:35-0400Body temperature 97.9 [degF]Peterson Gonsalez MD Work Phone: c[facility] HospitalYcwuuh00-83-8296 09:35-0400Body qonmur90.43 kgPeterson Gonsalez MD Work Phone: [phone] Health St. Charles HospitalMetoog78-40-8572 09:35-0400Diastolic blood ynfrznve17 mm[Hg]Peterson Gonsalez MD Work Phone: [phone] Health St. [facility] HospitalMggdyv42-24-5603 09:35-0400Heart faze251 /Sirisha Gonsalez MD Work Phone: c[facility] HospitalHqgvhu26-96-6960 09:35-0400Respiratory rate 14 /Sirisha Gonsalez MD Work Phone: c[facility] HospitalTsoiws60-94-0118 09:35-0400Systolic blood clsrvult030 mm[Hg]Peterson Gonsalez MD Work Phone: c[facility] HospitalQkkawz13-33-7716 23:00-0400Diastolic blood hwhihdpe06 mm[Hg]DO Juliette Ball Work Phone: [phone]09-25-2022 23:00-0400 Heart rate98 /minDO Juliette Ball Work Phone: [phone]09-25-2022 23:00-0400 Respiratory rate20 /minDO Juliette Ball Work Phone: [phone]09-25-2022 23:00-0400 SaO2% (BldA) [Mass fraction]95 %DO Juliette Ball Work Phone: [phone]09-25-2022 23:00-0400 Systolic blood rqicjfah305 mm[Hg]DO Juliette Ball Work Phone: [phone]09-25-2022 20:00-0400 Body zvnzvmuhvow10.9 [degF]DO Juliette Berumen Work Phone: [facility]09-25-2022 12:50-0400 Body .64 cmDO Juliette Berumen Work Phone: [facility]09-25-2022 12:50-0400 Body wkxrly28.7 kgDO Juliette [employer] Work Phone: [facility]07-12-2022 15:05-0400 Body itjaji416.64 cmCaitlin Omoregie PA-C Work Phone: [phone]-Mvyzerkigltyy-[facility] [place] [address] Work Phone: [phone] 15:05-0400Body mass index (BMI) [Ratio]22.6 kg/w4Vqhxtjc Omoregie PA-C Work Phone: [phone]-Hmiruzaigadzi-[facility] [place] [address] Work Phone: [phone] 15:05-0400Body surface area Derived from formula1.72 b4Obvjjmc Omoregie PA-C Work Phone: [phone]-Wqhcegojgtezf-[facility] [place] [address] Work Phone: [phone] 15:05-0400Body ivonqt42.5 kgCaitlin Omoregie PA-C Work Phone: [phone]-Vmmpkyielornm-[facility] [place] [address] Work Phone: [phone] 15:05-0400Diastolic blood ygizjihj79 mm[Hg] Nayely Omoregie PA-C Work Phone: [phone]-Dthtrhpermyil-[facility] [place] [address] Work Phone: [phone] 15:05-0400Heart rate72 /minCaitlin Omoregie PA-C Work Phone: [phone]-Tlxtpvfkvwfnc-[facility] [place] [address] Work Phone: [phone] 15:05-8056KfI4% (BldA) [Mass fraction]98 % Nayely Omoregie PA-C Work Phone: [phone]-Rwhrgxbiymmpe-[facility] [address] Work Phone: [phone]621 15:05-0400Systolic blood ttglbxfo844 mm[Hg] Nayely Moralesoregie PA-C Work Phone: [phone]-Rnldfjscnearl-[facility] [address] Work Phone: [phone]06 15:05-51128 1Caitlabril Omoregie PA-C Work Phone: [phone]-Zsihqspbrlrny-[facility] [address] Work Phone: [phone] on above:LkfvUuvli30-39-6262 14:03-0400Body anjjpvhksus99.39 [degF]Peterson Gonsalez MD Work Phone: [phone] Health St. Charles HospitalLepwtr29-39-1881 14:03-0400Body hgoogx32.69 kgPeterson Gonsalez MD Work Phone: [phone] Riopcv20-79-1246 14:03-0400Diastolic blood hpvnpraf95 mm[Hg]Peterson Gonsalez MD Work Phone: [phone] Health St. Charles HospitalPrigxg16-99-5988 14:03-0400Heart rate94 /min Peterson Gonsalez MD Work Phone: [phone] Ydmmux22-11-3097 14:03-0400Respiratory rate 15 /minePterson Gonsalez MD Work Phone: [phone] Health St. Charles HospitalTlahbm67-12-6455 14:03-0400Systolic blood lkhseeqn659 mm[Hg]Peterson Gonsalez MD Work Phone: [phone] Srwvpz74-39-9882 15:30-0400Diastolic blood zpjhimqs94 mm[Hg]Myrna Mendez MD Work Phone: [facility]06-08-2022 15:30-0400Heart rate96 /min Myrna Mendez MD Work Phone: [facility]06-08-2022 15:30-0400Respiratory rate 22 /minMyrna Mendez MD Work Phone: [facility]06-08-2022 15:30-9876IyF8% (BldA) [Mass fraction]100 %Myrna Mendez MD Work Phone: [facility]06-08-2022 15:30-0400Systolic blood zhhisyuf994 mm[Hg]Myrna Mendez MD Work Phone: [facility]06-08-2022 14:04-0400Body nkeffo272.6 cmMyrna Mendez MD Work Phone: [facility]06-08-2022 14:04-0400Body diajga10.04 kgMyrna Mendez MD Work Phone: [facility]05-10-2022 10:36-0400Body evxkfe89.04 kgBryn Reyna PROCUREMENT DIRECTOR.STABLE HELPER Work Phone: [facility]05-10-2022 10:36-0400Diastolic blood mjgkjiph54 mm[Hg]Jose Reyna PROCUREMENT DIRECTOR.STABLE HELPER Work Phone: [phone]05-10-2022 10:36-0400Heart yuqf518 /minBryn Reyna PROCUREMENT DIRECTOR.STABLE HELPER Work Phone: [phone]05-10-2022 10:36-0400Systolic blood ggqgoeyg164 mm[Hg]Jose Reyna PROCUREMENT DIRECTOR.STABLE HELPER Work Phone: [phone]03-08-2022 15:33-0500Body .64 cmCaitlin Omoregie PA-C Work Phone: [phone]-Shbwidpzrvvsd-[facility] [place] [address] Work Phone: [phone] 15:33-0500Body mass index (BMI) [Ratio] 26.32 kg/c1Bvrbbuh Omoregie PA-C Work Phone: [phone]-Blwztmupwgznr-[facility] [address] Work Phone: [phone] 15:33-0500Body surface area Derived from formula1.83 e3Lxwhluw Omoregie PA-C Work Phone: [phone]-Twchtywsvahhc-[facility] [place] [address] Work Phone: [phone] 15:33-0500Body nvomra94.96 kgCaitlin Omoregie PA-C Work Phone: [phone]-Zvfxzgxtdfpig-[facility] [address] Work Phone: [phone] 15:33-0500Diastolic blood ciaymegm98 mm[Hg] Nayely Omoregie PA-C Work Phone: [phone]-PhfxrpbbcgzyoJ[facility] [place] [address] Work Phone: [phone] 15:33-0500Heart rate94 /minCaitlin Omoregie PA-C Work Phone: [phone]-Ztekfvuvxapcf-[facility] [address] Work Phone: [phone] 15:33-9552WxK8% (BldA) [Mass fraction]100 % Nayely Omoregie PA-C Work Phone: [phone]-WngfrrluiuzmsJIM [facility] [place] [address] Work Phone: [phone] 15:33-0500Systolic blood sdxursov349 mm[Hg] Nayely Omoregie PA-C Work Phone: [phone]-QpopjprmvgbhzJIM [facility] [address] Work Phone: [phone] 15:26-0400Body mass index (BMI) [Ratio] 30.86 kg/x4Lxjiaom Omoregie PA-C Work Phone: [phone]-Lpeigtkzky-[place] [address] Work Phone: [phone] 15:26-0400Body surface area Derived from formula1.96 g0Obntbfd Omoregie PA-C Work Phone: [phone]-Kwwpwdggzu-[address] [address] Work Phone: [phone] 15:26-0400Body .72 kgCaitlin Omoregie PA-C Work Phone: [phone]-Blkdknkggm-[place] [address] Work Phone: [phone] 15:-0400Diastolic blood dnimzzub26 mm[Hg] Nayely Omoregie PA-C Work Phone: [phone]-Ysrumywbze-[address] Work Phone: [phone] 15:-0400Heart rate70 /minCaitlin Omoregie PA-C Work Phone: [phone]-Eogrjghthe-[place] [address] Work Phone: [phone] 15:-5378SuO1% (BldA) [Mass fraction]98 % Nayely Omoregie PA-C Work Phone: [phone]-Aapcbvheiw-[address] Work Phone: [phone] 15:Systolic blood uskhwvlo304 mm[Hg] Nayely Omoregie PA-C Work Phone: [phone]-Lgmdbdyvjg-[place] [address] Work Phone: [phone] 17:26-0500BMI (Body Mass Index)30.39 kg/m2 Nayely TcblcneyQX-Brjdenryraurx-Mhfvrtm [facility] Work Phone: [phone] 518-107311-05-2019 17:26-0500Body xozsqg40.42 kgCaitlin TpbecxytLZ-Fqasbemucayps-Qhdbeas [facility] Work Phone: [phone] 17:26-0500BP Aqyuaueeg87 mm[Hg]Nayely TkstjlptHE-Bmngwcgkucflq-Xcsxdms [facility] Work Phone: comment on above:Location: LUE; Position: Sitting 02-18-2019 17:26-0500BP Bkhybshk409 mm[Hg]Nayely Omoregie DZ-Jexqfkzjfodjl-Hbomjsy [facility] Work Phone: comment on above:Location: LUE; Position: Sitting 02-18-2019 17:26-0500BSA (Body Surface Area)1.95 e4Cfhdoic Omoregie ZW-Lzkcgcdanmqse-Bocwiuz [facility] Work Phone: 1([phone] 17:8415Zrpzqy568.64 cmCaitlin Omoregie UQ-Bsbiubiapomcw-Cyajqcs [facility] Work Phone: [phone] 17:-050Pulse (Heart Rate)68 /minCaitlin MjwgtkevIW-Srymgqxlropcm-[employer]ocnead [facility] Work Phone: [phone] 365-823111-05-2019 17:-050Pulse Qzteumvr901 %Nayely ZgfaykmiVQ-Lgfvaddalapxe-Wrrodxd [facility] Work Phone: [phone] 17:050Respiratory Rate16 /minCaitlin TnonsovwPW-Liuvwjiiqoggz-Eiwfcru [facility] Work Phone: Encounters Encounter DateEncounter TypeCare ProviderFacilityStart: 02-17-2025 End: 55-83-8790dcodgsxpcaKLZJICTN SEYBERTFacility:[facility]Start: 02-12-2025 End: 38-77-3772qrmnewzonlJPXGC JOHANNES VORSTERFacility:[place]alt[facility]art: 01-09-2025 End: 44-82-2137qwouhnfdkmFJPAAX E BRAUNFacility:[place]Healthtart: 12-31-2024 End: 46-56-1221wqzcnyxuzwYtrohnps Ball DO Work Phone: [facility] Work Phone: Start: 12-31-2024 End: 57-81-8955Mhjqtjowbe Dallin Galicia APRN-[facility] [place] Work Phone: Start: 12-26-2024 End: 81-67-3343hwucgjltbiKchdjwaw Ball DO Work Phone: [facility] Work Phone: Start: 12-26-2024 End: 74-59-9297Vwckmaz encounter procedureAmaurievens Berumen DO-[facility] Work Phone: Start: 12-23-2024 End: 74-77-1974Pkuvlsl encounter procedureAstrid Nava MD Work Phone: OphthalmologyComment on above: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 (Primary Dx); Combined forms of age-related cataract of left eye; Epiretinal membrane (ERM) of both eyes; Posterior vitreous detachment of both eyes; 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, left eye (HCC); Type 1 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, right eye (HCC)Start: 12-23-2024 End: 02-64-9845ygndjcjvojJELNX A MORLEYFacility:[place]Healthtart: 12-12-2024 End: 92-14-5104Wfkvfo OnlyJamie Mccarty MD Work Phone: [facility] HOSPComment on above:Medication Authorization (Cresemba)Start: 12-11-2024 End: 89-40-9009Plwsitwgx encounterSusan Yung Carranza PA-C Work Phone: [facility] CenterStart: 12-11-2024 End: 23-86-2581Thcsbbq encounter procedureDaryl Morejon MD Work Phone: Orthopaedics White HallComment on above:Closed fracture of distal end of left femur, unspecified fracture morphology, initial encounter (HCC) (Primary Dx)Start: 12-11-2024 End: 45-96-9602xfgfwtdsofFOXJUF E BRAUNFacility:[facility] HospitalStart: 12-11-2024 End: 01-61-2075Eakjmpucvm hospital visit by physicianXr [facility] Work Phone: RadiologyComment on above:Tibia/fibula fracture, left, closed, initial encounter [S82.202A, S82.402A]Start: 23-50-0313Hdwpsoxkme Dallin Galicia APRN-[facility] [place] Work Phone: Start: 12-08-2024 End: 22-99-8846Yclpthegkumj consultation with patientNoel Daniels MD Work Phone: [facility] MEDICINE & REHABStart: 12-08-2024 End: 48-88-2867mpyvqxlxzpEexqi Joshi MD Work Phone: PHYSICAL MEDICINE & REHABComment on above:Chronic incomplete spastic paraplegia (HCC) (Primary Dx); Spasm of muscle; Impaired mobility and activities of daily livingStart: 11-29-2024 End: 62-71-2457nqbzjgkqslBikpcqlf Samuel PA-C Work Phone: [facility] InstituteStart: 11-29-2024 End: 44-83-3983Nounkw-up encounterBianca Little PA-C Work Phone: spine InstituteComment on above:R/T follow upStart: 11-28-2024 End: 29-98-9176Zgujkojfb encounterRuddy Gupta MD Work Phone: [facility]ology [facility] Metabolic InstituteComment on above: Electronic Communication; Patient QuestionStart: 11-19-2024 End: 39-37-3561tloaoqmzceSzebupmo Ball DO Work Phone: [facility] Work Phone: Start: 11-19-2024 End: 75-12-2534Slgyqfc encounter procedureBejosue Berumen DO-[facility] Work Phone: Start: 11-04-2024 End: 53-09-0612kqqezlbuhnEgodgief Samuel PA-C Work Phone: Spine InstituteComment on above:R/T My VisitStart: 10-22-2024 End: 86-73-2313jjmerngthwYUSZMO Carmine BRAUNFacility:[facility]alt[facility]art: 10-22-2024 End: 39-39-9255Sacajby encounter procedureBianca Little PA-C Work Phone: Spine InstituteComment on above:Cervical stenosis of spinal canal (Primary Dx); Degeneration of cervical intervertebral disc; Communicating hydrocephalus (HCC)Start: 10-22-2024 End: 17-12-9183tykydtfcwoDOUQXX E BRAUNFacility:[place]Healthtart: 10-15-2024 End: 58-94-0899Efdreyzkrnng consultation with Kim Gonsalez MD Work Phone: UrologyStart: 10-15-2024 End: 55-88-3586xmhlphdehwHpnv Almassi MD Work Phone: UrologyComment on above:History of bladder cancer (Primary Dx); Hydronephrosis, unspecified hydronephrosis type; Pulmonary noduleStart: 10-09-2024 End: 33-64-7540Qdechfl encounter Austyn Cordero PA-C Work Phone: Neurological RestorationComment on above:Cervical stenosis of spinal canal (Primary Dx); Other hydrocephalus (HCC)Start: 10-09-2024 End: 67-14-4276emxcutntuiKRBCBO E BRAUNFacility:[place]Healthtart: 13-78-0778Imy-patient / Non-visitNicole E Knightsen BOARD MIXER TENDER-C-[facility] Work Phone: Start: 30-50-0050eocfancbacZBRSHD MADHAVI Facility:[place]: 10-02-2024 End: 67-39-9893Sbyaluvord hospital visit by physicianArrival Time Radiology Work Phone: Radiology Pet CTComment on above:History of bladder cancer [Z85.51]Start: 09-26-2024 End: 18-83-2816Agclhhtqs encounterClare Pedraza NP Work Phone: [facility] CI FMStart: 09-12-2024 End: 76-10-8863Mmrnnd OnlyNicole Madhavi PROCUREMENT DIRECTOR.STABLE HELPER Work Phone: UrologyComment on above:Malignant neoplasm of urinary bladder, unspecified site (HCC) (Primary Dx)Radiology CTStart: 09-11-2024 End: 34-35-5066Zilshku evaluation of patient and reportSClaudia Spencer RN Work Phone: Orthopaedics White HallComment on above:Closed fracture of distal end of left femur, unspecified fracture morphology, initial encounter ([facility]) (Primary Dx)Start: 09-11-2024 End: 54-38-3857zbumdwqyyiKIRCMG Carmine SIMONSFacility:[facility] Hospitaltart: 09-11-2024 End: 66-56-1371Cgsbbbjpdv hospital visit by physicianXr [facility] Work Phone: RadiologyComment on above:Tibia/fibula fracture, left, closed, initial encounter [S82.202A, S82.402A]Start: 08-28-2024 End: 71-78-9477Jzvktigrzs and management of inpatientHEATHER [facility] Centertart: 59-99-1377Njm-patient / Non-visitOutside Provider- [facility] Work Phone: Start: 08-27-2024 End: 29-41-8126VzhyrcGautam Morejon MD Work Phone: Orthopaedics White HallComment on above:Tibia/fibula fracture, left, closed, initial encounter (Primary Dx)Start: 30-83-1898Kut- patient / Non-visitVeronica Rodriguez MD-[facility] Work Phone: Start: 01-70-7285Bms-patient / Non-visitOutside Provider-[facility] Work Phone: Start: 08-25-2024 End: 46-23-7955Tkmokcvyr encounterDolores Audrey Morton APRN.CNS Work Phone: [facility] SS0BHdxwhod on above:Appointment (Patient still in the hospital, scheduled Hip Fracture Liaison Consult Appointment with on 10/09 at 12:00PM. Sent My chart message and mailed out reminder)Start: 56-71-1191Iel-patient / Non-visitOutside Provider-[facility] Work Phone: Start: 08-52-6622Xrz-patient / Non-visitOutside Provider-[facility] Work Phone: Start: 64-71-4089Mxt-patient / Non-visitOutside Provider-[facility] Work Phone: Start: 08-22-2024 End: 66-96-4190Ygrwloehnl and management of inpatientDARYL MOREJON [facility] End: 12-55-9970Joagbzrzs encounterPhil Thomas MD Work Phone: Provider AdultComment on above:Hospital To Hospital Start: 80-54-5556Cos-patient / Non-visitMelissa Shey Marker DO-[facility] Work Phone: Start: 08-21-2024 End: 17-59-9787Lmfxdxbfg encounterRuddy Gupta MD Work Phone: EndocrinologyComment on above:Patient Update (Garcia) Start: 08-20-2024 End: 90-84-9094nrgtzfnyxnNmtbacdz BallFacility:[facility] Start: 08-11-2024 End: 76-26-6320zgsicezldzQektk Joshi MD Work Phone: [facility] FHCComment on above: Baclofen scriptNoxafilStart: 08-05-2024 End: 54-39-6474irrrhorgmjKvmninbu Ball DO Work Phone: [facility] Work Phone: Start: 08-05-2024 End: 81-18-9419Bbetlot encounter procedureBenmartamin Ball DO Work Phone: [facility] Work Phone: Start: 08-01-2024 End: 91-65-5345Duyjrvx encounter procedureMarlene Cordero PA-C Work Phone: Neurological RestorationComment on above:Other hydrocephalus (HCC) (Primary Dx)Start: 08-01-2024 End: 89-81-1204eorgtfymarHPWWK CONSUELOFacility:[facility] Start: 95-39-2337othlgdcrsyKFQDF CONSUELOFacility:[facility] Start: 07-31-2024 End: 98-06-9796Xgbafrtwzt hospital visit by physicianArrival Time Radiology Work Phone: Radiology Pet CTComment on above:Other hydrocephalus (HCC) [G91.8]Start: 50-43-2747Xzvgntoybc RecurringBenjamin Ball DO Work Phone: [facility] [place] Work Phone: Start: 54-78-6616Ttz-patient / Non-visitBenjamin Ball DO Work Phone: [facility] Work Phone: Start: 07-28-2024 End: 80-56-8349llostdwwhnJycknyhj Ball DO Work Phone: [facility] Work Phone: Start: 07-28-2024 End: 90-03-6066Ifsqtdvv ReferredBenjamin Ball DO Work Phone: [facility]-LAB Path Spec Silvana HospStart: 40-08-3512Fgf-patient / Non-visitBenjamin Ball DO Work Phone: [facility] Work Phone: Start: 07-27-2024 End: 55-77-9247eoqqwwxjbxSsozzJered Cordero PA-C Work Phone: Neurological RestorationComment on above:ShuntStart: 00-28-3545Ctrzndpnbi RecurringBenjamin Ball DO Work Phone: [facility] [place] Work Phone: Start: 07-22-2024 End: 57-29-0084dejgarewysRGNBIP Carmine SIMONSFacility:[facility] HospitalStart: 07-22-2024 End: 46-68-9600Kzmsoeo encounter procedureNoel Daniels MD Work Phone: [facility] FHCComment on above: Chronic incomplete spastic paraplegia (HCC) (Primary Dx); Spasm of muscle; Myelitis (HCC); Impaired mobility and activities of daily livingStart: 07-17-2024 End: 01-41-7969otqxfhzbjiSEEVOM E BRAUNFacility:[facility]art: 07-17-2024 End: 03-09-8395Olccprt encounter procedureMarlene Cordero PA-C Work Phone: Neurological RestorationComment on above:Other hydrocephalus (HCC) (Primary Dx)Start: 07-03-2024 End: 16-41-3906Flfkskbrq encounterMarlene Cordero PA-C Work Phone: Neurological RestorationStart: 07-03-2024 End: 13-17-3413Axzhbah encounter procedureBenjamin Ball DO Work Phone: [facility]-CT Scan Main [place] Work Phone: Start: 07-03-2024 End: 07-85-5389fqaxrtetfjKqwfcroj Ball DO Work Phone: [facility] Work Phone: Start: 30-59-4894Vuvjesstff RecurringBenjamin Ball DO Work Phone: [facility] [place] Work Phone: Start: 58-52-1018Kba-patient / Non-visitBenjamin Ball DO Work Phone: [facility] Work Phone: Start: 07-02-2024 End: 96-50-7791nnqivsdaluIGUCOL ISADAFacility:[facility]art: 07-02-2024 End: 11-60-3869fedyarwmbwDAHXCB ISADAFacility:[facility]art: 07-01-2024 End: 04-64-8819kysykckorxHYPNF SCHWIETERMANFacility:[facility] Start: 07-01-2024 End: 89-75-8279Oztlrxvsyf hospital visit by physicianArrival Time Radiology Work Phone: Radiology Pet CTComment on above:Other hydrocephalus (HCC) [G91.8]Start: 06-20-2024 End: 14-36-6555gorjowrjmsKifkbwhh Ball DO Work Phone: [facility] Work Phone: Start: 06-20-2024 End: 94-36-8727Mokmzaq encounter procedureBenjamin Ball DO Work Phone: [facility] Work Phone: Start: 04-76-7869Fulgjptrmi RecurringBenjamin Ball DO Work Phone: [facility] [place] Work Phone: Start: 06-18-2024 End: 66-01-4635qqzyguamdvStgmjJered CRISTINA-C Work Phone: Neurological RestorationComment on above:ShuntStart: 06-10-2024 End: 39-78-5747mrqwwssfirFhxtdkih Ball DO Work Phone: [facility] Work Phone: Start: 06-10-2024 End: 52-11-1263Mjmfnbx encounter procedureBenjamin Ball DO Work Phone: [facility] Work Phone: Start: 69-76-6380Qxkrgdfeel RecurringBenjamin Ball DO Work Phone: [facility] [place] Work Phone: start: 05-27-2024 End: 38-55-7321Fdhtmyg encounter procedureBenjamin Ball DO Work Phone: [facility]-Ultrasound Main [place] Work Phone: Start: 05-27-2024 End: 66-76-0663itdsoujwzdXoxbatag Ball DO Work Phone: [facility] Work Phone: Start: 05-26-2024 End: 49-00-2758qrfspilsczXjxxw Consuelo PA-C Work Phone: Neurological RestorationComment on above:ShuntStart: 05-22-2024 End: 09-51-3890aosktwrrxwIwbckgln Ball DO Work Phone: [facility] Work Phone: Start: 05-22-2024 End: 26-42-3361Hxnwull encounter procedureBenjamin Ball DO Work Phone: [facility] Work Phone: Start: 55-54-6516Topproedyq RecurringBenjamin Ball DO Work Phone: [facility] [place] Work Phone: Start: 05-09-2024 End: 91-05-3993kqgngixmrrYjqqe Consuelo PA-C Work Phone: Neurological RestorationComment on above:Shunt questionStart: 04-29-2024 End: 53-40-9847lvcszxxnonKeljkymmhSelect Medical [facility]ty [facility] Work Phone: Start: 04-29-2024 End: 45-29-1547Anzmeqc encounter procedureD[facility] Health [facility] Work Phone: Start: 04-22-2024 End: 11-76-5433ixnhmlkicfUTTUPM Carmine BRAUNFacility:[facility]art: 04-22-2024 End: 80-49-9250Othpqnw encounter procedureNoel Daniels MD Work Phone: [facility] SouthCComment on above: Chronic incomplete spastic paraplegia (HCC) (Primary Dx); Spasm of muscle; Myelitis (HCC); Impaired mobility and activities of daily livingStart: 04-15-2024 End: 07-02-7773wlrxzgikekORQHDM Carmine SIMONSFacility:[facility]art: 04-15-2024 End: 25-04-6522Nkeyesw encounter procedureNoel Daniels MD Work Phone: [facility] Friscoomment on above: Chronic incomplete spastic paraplegia (HCC) (Primary Dx); Spasm of muscle; Myelitis (HCC); Impaired mobility and activities of daily livingStart: 01-43-1662Mge-patient / Non-visitFirrussell [facility] Work Phone: Start: 04-10-2024 End: 41-53-4250Jbybncdiik hospital visit by physicianCt 2 Main Qb (I-Stat) RadiologyComment on above:Other hydrocephalus (HCC) [G91.8]Start: 04-10-2024 End: 91-47-6849rqqsvbbdplYDAWD SCHWIETERMANFacility:[facility] Start: 04-10-2024 End: 09-08-9804Owciahx encounter procedureMarlene Cordero PA-C Work Phone: Neurological RestorationComment on above:Communicating hydrocephalus (HCC) (Primary Dx)Fungal meningitis (Primary Dx); Invasive fungal infection; Spinal cord mass (HCC); Communicating hydrocephalus (HCC); Type 1 diabetes mellitus with unspecified complications (HCC); meterman (current) use of antibiotics; Muscle spasm of left lower extremity; Therapeutic drug monitoringStart: 04-04-2024 End: 48-51-4622Fzrlhtvug encounterNoel Daniels MD Work Phone: [facility] MedicineComment on above:Request to be scheduled for next Botox injection.Start: 03-24-2024 End: 22-12-3009Dsktjr Rebecca Ramos MD Work Phone: NeurologyComment on above:Disturbance of skin sensation (Primary Dx)Start: 03-21-2024 End: 83-74-3721ktsnfwhrlpHNVA A SHUAIBFacility:[facility]art: 03-21-2024 End: 96-80-6002Bjliam outpatient visit 25 minutesUmar Audrey Butler MD Work Phone: Neurological RestorationComment on above:Communicating hydrocephalus (HCC) (Primary Dx); SpasticityStart: 26-07-9595Ium-patient / Non-visitFirrussell county medical center [facility]- [facility] Work Phone: Start: 03-18-2024 End: 91-68-1128egydhxwgigTQETTDHU C UIFacility:[facility]tart: 03-18-2024 End: 57-96-0493Ojfnrdt encounter procedureShelbi Raoms MD Work Phone: NeurologyComment on above:SpasticityStart: 03-05-2024 Non-patient / Non-visitFirelands Physician [facility] Work Phone: Start: 51-24-5843Srs-patient / Non-visitFirelands Physician Group-[facility] Work Phone: Start: 02-25-2024 End: 62-98-0806Tkwduoj encounter procedureDuke Health Phys[facility] Work Phone: Start: 02-25-2024 End: 85-51-2536Yytdal Silvia Mccarty MD Work Phone: Infectious DiseaseComment on above:Ulcer of left foot, unspecified ulcer stage (HCC) (Primary Dx)Podiatry ApptStart: 02-15-2024 End: 00-22-2440oafukejggyGpuaFlower Calzada APRN.CNP Work Phone: Connected CareComment on above:Obstructive hydrocephalus (HCC) (Primary Dx); Fungal meningitis; 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; Bilateral lower extremity edema; Essential hypertension; Diabetes mellitus type 1, controlled, without complications (HCC); Malignant neoplasm of urinary bladder, unspecified site (HCC)Start: 02-15-2024 End: 63-17-4764Karbnvxuaxra consultation with errolWaqascarmine Calzada AKOSUA Work Phone: Connected CareStart: 94-14-6078Qth-patient / Non-visit [facility] Work Phone: Start: 02-13-2024 End: 78-60-6855Voieoru encounter procedureCon Oconnor MD Work Phone: Neurological RestorationComment on above:Communicating hydrocephalus (HCC) (Primary Dx)Start: 02-11-2024 End: 45-48-6118stskxzidnlDvjie Joshi MD Work Phone: PHYSICAL MEDICINE & REHABComment on above:Chronic incomplete spastic paraplegia (HCC) (Primary Dx); Spasm of muscle; Myelitis (HCC); Impaired mobility and activities of daily livingStart: 02-11-2024 End: 57-14-1452Sytfpjjyxxep consultation with Luis Daniels MD Work Phone: PHYSICAL MEDICINE & REHABStart: 02-08-2024 End: 36-49-0210swopdfkkgzBekyqJered Cordero PA-C Work Phone: Neurological RestorationComment on above:ShuntStart: 02-08-2024 End: 74-83-3544Axermee encounter procedureCon Oconnor MD Work Phone: Neurological RestorationComment on above:Communicating hydrocephalus (HCC) (Primary Dx); SpasticityStart: 02-90-6389Kpr-patient / Non-visitD[facility] Work Phone: Start: 61-69-5526Mzo-patient / Non-visitD[facility] Work Phone: Start: 02-07-2024 End: 51-92-6494Szifvhipq department patient visitMARCIA E BRAUNFacility:[facility] Hospitaltart: 02-07-2024 End: 94-55-8571bntubqnuxdEibmoChristian Dominguez APRN.CNP Work Phone: Wound OstomyComment on above:Pressure injury of left heel, unstageable (HCC) (Primary Dx); Physical deconditioningObstructive hydrocephalus (HCC) (Primary Dx); Fungal meningitis; Bilateral lower extremity edema; Essential hypertension; Diabetes mellitus type 1, controlled, without complications (HCC); Malignant neoplasm of urinary bladder, unspecified site (HCC)Start: 02-07-2024 End: 01-22-8290Sajcueulktag consultation with Marnie Dominguez APRN.STABLE HELPER Work Phone: Wound OstomyStart: 02-06-2024 End: 92-68-1293Acurvqa encounter Cornelio Gupta MD Work Phone: EndocrinologyComment on above: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) (Primary Dx); Elevated alkaline phosphatase level; Type 1 diabetes mellitus with hypoglycaemia (HCC); 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); Insulin pump status; Insulin pump titrationStart: 02-05-2024 End: 23-18-0234Wibcczzpe encounterJamie Mccarty MD Work Phone: Infectious DiseaseStart: 02-04-2024 End: 58-60-3207Iokqty OnlyJamie Mccarty MD Work Phone: INFD HOSPComment on above:Fungal meningitis (Primary Dx)Start: 02-01-2024 End: 49-28-0279blnqwggadpKicaFlower Calzada APRN.CNP Work Phone: Connected CareComment on above:Obstructive hydrocephalus (HCC) (Primary Dx); Fungal meningitis; Bilateral lower extremity edemaStart: 02-01-2024 End: 10-63-8964Behudlcxqsvk consultation with Julia Calzada APRN.CNP Work Phone: Connected CareStart: 01-31-2024 End: 74-85-7760tqtjgdrhvnVauzzChristian Dominguez APRN.CNP Work Phone: Wound OstomyComment on above:Pressure injury of left heel, unstageable (HCC) (Primary Dx); Physical deconditioningStart: 01-31-2024 End: 54-29-9498Yaibuuknpugq consultation with Marnie Dominguez APRN.CNP Work Phone: Wound OstomyStart: 01-30-2024 End: 76-67-9795DrlroyGautam Cordero PA-C Work Phone: Neurological RestorationComment on above:Other hydrocephalus (HCC) (Primary Dx)Start: 01-29-2024 End: 37-74-2853klyphvqelbWgluwvmvCata Carl APRN.CNP Work Phone: Connected CareComment on above:Obstructive hydrocephalus (HCC) (Primary Dx); Fungal meningitisStart: 01-29-2024 End: 64-48-6824Htkdffkkfioh consultation with Maria Elena Carl APRN.CNP Work Phone: Connected CareStart: 01-24-2024 End: 57-85-3416zogjggzxumXfdknelfCata Carl APRN.CNP Work Phone: Connected CareComment on above:Obstructive hydrocephalus (HCC) (Primary Dx); Fungal meningitisPressure injury of left heel, unstageable (HCC) (Primary Dx); Physical deconditioningStart: 01-24-2024 End: 32-40-5811Czghzujhiumm consultation with Maria Elena Carl APRN.CNP Work Phone: Connected CareStart: 01-22-2024 End: 84-81-2835eosopuqxhwBpwdnrzgCata Carl APRN.CNP Work Phone: Connected CareComment on above:Obstructive hydrocephalus (HCC) (Primary Dx); Fungal meningitis; Essential hypertension; Tibia/fibula fracture, left, closed, initial encounter; Diabetes mellitus type 1, controlled, without complications (HCC)Start: 01-22-2024 End: 50-82-4855Seujyntfyrgs consultation with Maria Elena Carl APRN.CNP Work Phone: Connected CareStart: 96-07-6545Uudmtdp encounter procedurePeoples Hospitaltart: 01-17-2024 End: 95-42-3909oyqkoupwykQcfuesegErica Carl APRN.CNP Work Phone: Connected CareComment on above:Obstructive hydrocephalus (HCC) (Primary Dx); Fungal meningitisStart: 01-17-2024 End: 96-79-0822Bgiilsyjbcmm consultation with Maria Elena Carl APRN.CNP Work Phone: Connected CareStart: 01-15-2024 End: 34-40-9666fpzvufezbjLxqueoilErica Carl APRN.CNP Work Phone: Connected CareComment on above:Obstructive hydrocephalus (HCC) (Primary Dx); Fungal meningitisStart: 01-15-2024 End: 55-44-0378Dyrxajzhtbjj consultation with Maria Elena Carl APRN.CNP Work Phone: Connected CareStart: 01-11-2024 End: 17-55-6590Tpdaice encounter procedureNoel Daniels MD Work Phone: [facility] FHCComment on above: Chronic incomplete spastic paraplegia (HCC) (Primary Dx); Spasm of muscle; Myelitis (HCC); Impaired mobility and activities of daily livingStart: 01-10-2024 End: 89-52-8620Oxndicbgyb hospital visit by physicianCt 2 Main Qb (I-Stat) RadiologyComment on above:Other hydrocephalus (HCC) [G91.8]Start: 01-10-2024 End: 47-70-4208rtjdimybbeLykwjdrdErica Carl APRN.CNP Work Phone: Connected CareComment on above:Obstructive hydrocephalus (HCC) (Primary Dx); Fungal meningitisPressure injury of left heel, unstageable (HCC) (Primary Dx); Physical deconditioningStart: 01-10-2024 End: 42-84-5888Xmxkzfmwceag consultation with Maria Elena Carl APRN.CNP Work Phone: Connected CareStart: 01-10-2024 End: 66-19-8156Zgzjbod encounter Eli Monge PA-C Work Phone: Orthopaedics ClevelandComment on above:Tibia/fibula fracture, left, closed, initial encounter (Primary Dx)Other hydrocephalus (HCC) (Primary Dx)Fungal meningitis (Primary Dx); Myelitis (HCC); Invasive fungal infection; Muscle spasm of left lower extremity; Spinal cord mass (HCC); meterman (current) use of antibiotics; Communicating hydrocephalus (HCC)Start: 01-10-2024 End: 79-03-9787Mzxtupvggq hospital [facility] Comment on above:Tibia/fibula fracture, left, closed, initial encounter [S82.202A, S82.402A]Start: 01-08-2024 End: 23-67-6160ebpqdqhdxtJqeeqciwCata Carl APRN.CNP Work Phone: Connected CareComment on above:Obstructive hydrocephalus (HCC) (Primary Dx); Fungal meningitisStart: 01-08-2024 End: 42-09-8601Kwfuzxuzozhk consultation with Maria Elena Carl APRN.CNP Work Phone: Connected CareStart: 01-03-2024 End: 12-35-7057xcvbmprasjPgwjgjwwCata Carl APRN.CNP Work Phone: Connected CareComment on above:Obstructive hydrocephalus (HCC) (Primary Dx); Fungal meningitisStart: 01-03-2024 End: 89-58-4979Gtabxavulpnu consultation with Maria Elena Carl APRN.CNP Work Phone: Connected CareStart: 12-27-2023 End: 15-56-1771muvsojwaldSeiowChristian Dominguez APRN.CNP Work Phone: Wound OstomyComment on above:Pressure injury of left heel, unstageable (HCC) (Primary Dx); Physical deconditioningObstructive hydrocephalus (HCC) (Primary Dx); Fungal meningitisStart: 12-27-2023 End: 90-78-1897Udvwsakzrjzw consultation with Marnie Dominguez APRN.CNP Work Phone: Wound OstomyStart: 12-25-2023 End: 89-13-8754twthoreofoDwakltulCata Carl APRN.STABLE HELPER Work Phone: Connected CareComment on above:Obstructive hydrocephalus (HCC) (Primary Dx); Fungal meningitisStart: 12-25-2023 End: 52-15-9577Ibhumdffhtow consultation with Maria Elena Carl APRN.STABLE HELPER Work Phone: Connected CareStart: 12-21-2023 End: 61-08-7893Mtxnmny encounter procedureJamie Mccarty MD Work Phone: Infectious DiseaseComment on above:Myelitis (HCC) (Primary Dx); Invasive fungal infection; meterman (current) use of antibiotics; Therapeutic drug monitoring; Muscle spasm of right lower extremity; Muscle spasm of left lower extremity; NO SHOW; Communicating hydrocephalus (HCC)Start: 90-05-0840Zku-patient / Non-visit [facility] Work Phone: Start: 12-21-2023 End: 92-16-6524Onklql outpatient visit 40 minutesUmar Audrey Butler MD Work Phone: Neurological RestorationComment on above:Other hydrocephalus (HCC)Start: 12-20-2023 End: 97-58-8857yqynnubcvnKfburChristian Dominguez APRN.STABLE HELPER Work Phone: Wound OstomyComment on above:Pressure injury of left heel, unstageable (HCC) (Primary Dx); Physical deconditioningObstructive hydrocephalus (HCC) (Primary Dx); Fungal meningitisStart: 12-20-2023 End: 03-83-3490Lmcgvggfqdsq consultation with Marnie Dominguez APRN.CNP Work Phone: wound OstomyStart: 12-18-2023 End: 72-81-9529eczdobxrukFievncxjCata Carl APRN.CNP Work Phone: Connected CareComment on above:Obstructive hydrocephalus (HCC) (Primary Dx); Fungal meningitis; Essential hypertensionStart: 12-18-2023 End: 90-02-6074Mvepxibdhxsv consultation with Maria Elena Carl APRN.MARIS Work Phone: Connected CareStart: 12-13-2023 End: 84-25-5284ykerdlwjasRvcntjgm Newman APRN.MARIS Work Phone: Connected CareComment on above:Obstructive hydrocephalus (HCC) (Primary Dx); Fungal meningitisPressure injury of left heel, unstageable (HCC) (Primary Dx); Physical deconditioningStart: 12-13-2023 End: 02-47-7223Wddsaohitzdj consultation with Maria Elena Carl APRN.MARIS Work Phone: Connected CareStart: 12-11-2023 End: 47-55-2903pwjuwfnyofRysuhwsh Newman APRN.STABLE HELPER Work Phone: Connected CareComment on above:Obstructive hydrocephalus (HCC) (Primary Dx); Fungal meningitisStart: 12-11-2023 End: 91-21-2712Zqimjuxigsfj consultation with Maria Elena Carl APRN.CNP Work Phone: Connelrci CareStart: 12-10-2023 End: 88-06-9931Nsclta Ari Carl APRN.CNP Work Phone: Connected CareComment on above:Obstructive hydrocephalus (HCC)Start: 12-08-2023 End: 25-42-9461Yfmvlo Silvia Mccarty MD Work Phone: [facility] HOSPStart: 12-06-2023 End: 67-23-0243stwlgmfbznGqyifzddErica Carl APRN.CNP Work Phone: Connected CareComment on above:Obstructive hydrocephalus (HCC) (Primary Dx); Fungal meningitisStart: 12-06-2023 End: 29-62-7161Cmqgstocoyvb consultation with Maria Elena Carl APRN.CNP Work Phone: Connected CareStart: 12-05-2023 End: 94-69-1473vlkijipztpTjyxiHugo Dominguez APRN.CNP Work Phone: Wound OstomyComment on above:Pressure injury of left heel, unstageable (HCC) (Primary Dx); Physical deconditioningStart: 12-05-2023 End: 49-51-9418Qeucdxeonnwk consultation with Marnie Dominguez APRN.CNP Work Phone: Wound OstomyStart: 12-04-2023 End: 04-14-6116Ysxwbv Ari Carl APRN.CNP Work Phone: Connected CareComment on above:Obstructive hydrocephalus (HCC)Chronic incomplete spastic paraplegia (HCC) (Primary Dx); Fungal meningitis; Myelitis (HCC); Communicating hydrocephalus (HCC); Spasm of muscle; Impaired mobility and activities of daily livingOPENED IN ERROR (Primary Dx) Start: 12-03-2023 End: 91-75-2514euhdqvmpdjXhybhl Isada MD Work Phone: Infectious DiseaseComment on above:NoxafilStart: 12-02-2023 End: 88-43-7787Rpoipx encounterCarshonda Chambers MD Work Phone: [facility]HealthStart: 78-82-9909Jyrqnnglo encounterNoel Daniels MD Work Phone: [facility] [place] FHCComment on above: AppointmentStart: 11-29-2023 End: 81-18-1947Oahqmmd encounter procedureMarlene Cordero PA-C Work Phone: Neurological RestorationComment on above:Spasticity (Primary Dx); Other hydrocephalus (HCC)Start: 11-29-2023 End: 63-96-4795Htgublhxzw hospital visit by physicianSerenity Noble Ar Work Phone: RadiologyComment on above:Other hydrocephalus (HCC) [G91.8]Start: 11-29-2023 End: 06-75-5841wbkdcicnogHwklhnokCata Carl APRN.MARIS Work Phone: Connected CareComment on above:Obstructive hydrocephalus (HCC) (Primary Dx); Fungal meningitisPressure injury of left heel, unstageable (HCC) (Primary Dx); Physical deconditioningStart: 11-29-2023 End: 46-55-4670Xcruapwnlqbb consultation with Maria Elena Carl APRN.STABLE HELPER Work Phone: Connected CareStart: 11-27-2023 End: 83-27-4393Uiljjvt encounter Eli Monge PA-C Work Phone: Orthopaedics ClevelandComment on above:Tibia/fibula fracture, left, closed, initial encounter (Primary Dx); Severe protein-calorie malnutrition (HCC)Obstructive hydrocephalus (HCC)Start: 11-27-2023 End: 88-27-8695Futnycudjy hospital visit by physicianPappas [facility] Comment on above:Tibia/fibula fracture, left, closed, initial encounter [S82.202A, S82.402A]Start: 20-03-9328Asznpn Deloris Kay APRN.STABLE HELPER Work Phone: connected CareComment on above:Obstructive hydrocephalus (HCC)Start: 11-22-2023 End: 33-91-7893iocmlwmmbdTnixxChristian Dominguez APRN.MARIS Work Phone: Wound OstomyComment on above:Pressure injury of left heel, unstageable (HCC) (Primary Dx); Physical deconditioningObstructive hydrocephalus (HCC) (Primary Dx); Fungal meningitisStart: 11-22-2023 End: 58-06-1327Xqelwowqvysr consultation with Marnie Dominguez APRN.CNP Work Phone: Wound OstomyStart: 65-84-8170vxlobuwipkIeyslcpnCata Carl APRN.CNP Work Phone: Connected CareComment on above:Obstructive hydrocephalus (HCC) (Primary Dx); Fungal meningitisStart: 27-49-0289Gejhaorhjefo consultation with Maria Elena Carl APRN.CNP Work Phone: Connected CareStart: 61-64-6446Aihnzp Ari Carl APRN.CNP Work Phone: Connected CareComment on above:Obstructive hydrocephalus (HCC) (Primary Dx)Start: 11-16-2023 End: 78-47-5355Nclwcqg encounter Todd Mccarty MD Work Phone: Infectious DiseaseComment on above:Fungal meningitis (Primary Dx); meterman (current) use of antibiotics; Muscle spasm of left lower extremity; Myelitis (HCC); Muscle spasm of right lower extremity; Communicating hydrocephalus (HCC); Spinal cord mass (HCC)Start: 99-00-0465emksjjmsyoSnohvubw Newman APRN.MARIS Work Phone: Connected CareComment on above:Obstructive hydrocephalus (HCC) (Primary Dx); Fungal meningitisStart: 37-36-4677Irfloxyzjjho consultation with Maria Elena Carl APRN.CNP Work Phone: Connected CareStart: 11-15-2023 End: 13-31-5838zcoufdtsikTmzaxChristian Dominguez APRN.CNP Work Phone: Wound OstomyComment on above:Pressure injury of left heel, unstageable (HCC) (Primary Dx); Physical deconditioningStart: 11-15-2023 End: 90-18-7806Ijgzhaabrxip consultation with Marnie Dominguez APRN.CNP Work Phone: Wound OstomyStart: 80-39-5603euxfcwjxreYntlcgrbCata Carl APRN.CNP Work Phone: Connected CareComment on above:Obstructive hydrocephalus (HCC) (Primary Dx); Fungal meningitis; Tibia/fibula fracture, left, closed, initial encounter; Diabetes mellitus type 1, controlled, without complications (HCC); Malignant neoplasm of urinary bladder, unspecified site (HCC)Start: 11-14-2023 Telemedicine consultation with Maria Elena Carl APRN.CNP Work Phone: Connected CareStart: 11-08-2023 End: 62-65-6027nkridhzyozWleuo Molnar APRN.CNP Work Phone: Wound OstomyComment on above:Pressure injury of deep tissue of left heel (Primary Dx); Maceration of periwound skin; Pressure injury of deep tissue of left foot; Physical deconditioningWeak (Primary Dx); Fracture; Communicating hydrocephalus (HCC)Start: 11-08-2023 End: 08-40-8535Ulbjluxacwax consultation with Marnie Dominguez APRN.CNP Work Phone: Wound OstomyStart: 28-10-5924Dxwfybnqq encounterSharan Dominguez APRN.CNP Work Phone: Wound OstomyComment on above:Initial Consult (Wound Consult)Start: 10-31-2023 End: 98-11-8071Ektzlaw encounter procedureMarlene Cordero PA-C Work Phone: Neurological RestorationComment on above:Other hydrocephalus (HCC) (Primary Dx)Start: 74-83-2432ifhlonvdtmCHIIPM E BRAUN [facility]: 10-29-2023 End: 52-94-2403Hogmoiedqu hospital visit by [facility] ([facility]) Work Phone: [facility] Radiology CT ScanStart: 10-25-2023 End: 75-01-2018Qnnuzhm evaluation of patient and reportSClaudia Spencer RN Work Phone: Orthopaedics ClevelandComment on above:Tibia/fibula fracture, left, closed, initial encounter (Primary Dx)Start: 10-25-2023 End: 97-10-4366Htgwhlqtgr hospital visit by Jennifer Vel[facility]quezSt[facility] CenterRad[facility] Comment on above:Tibia/fibula fracture, left, closed, initial encounter [S82.202A, S82.402A]Start: 10-20-2023 End: 15-66-2687Wxaaclzlgv hospital visit by Bridgett Connell DO Work Phone: [facility]ONStart: 79-34-5309Aoxand OnlyMarlene Cordero PA-C Work Phone: Neurological RestorationComment on above:Other hydrocephalus (HCC) (Primary Dx)Start: 10-12-2023 End: 38-00-7315Nwvslln encounter statusMarlene Cordero PA-C Work Phone: [facility] ClinicStart: 07-37-6560Tueldzlpg encounter Caro Bradley MD Work Phone: [facility] Provider AdultComment on above:Hospital Admission Start: 10-06-2023 End: 64-66-2557Vbjbpudcd [facility] Start: 10-04-2023 End: 05-95-6196Vcgzjpuqrt hospital visit by [facility] Work Phone: RadiologyComment on above:History of bladder cancer [Z85.51]Start: 10-04-2023 End: 50-11-0568Natwnha encounter procedureMarlene Cordero PA-C Work Phone: Neurological RestorationComment on above: Hydrocephalus, adult (HCC) (Primary Dx)Fungal meningitis (Primary Dx); Muscle spasm of left lower extremity; Muscle spasm of right lower extremity; Communicating hydrocephalus (HCC); meterman (current) use of antibiotics; Therapeutic drug monitoring; Type 1 diabetes mellitus with unspecified complications (HCC); Spinal cord mass (HCC)Start: 09-25-2023 End: 85-71-8941ioejwqcggkFmeahwuuwTriHealth Work Phone: Start: 09-25-2023 End: 71-15-2231Rrppkqa encounter procedureDuke Health Physician GroupUniversity Hospitals [facility] Work Phone: Start: 13-28-4254Hmaolx OnlyNicole Knightsen PROCUREMENT DIRECTOR.STABLE HELPER Work Phone: UrologyComment on above:History of bladder cancer (Primary Dx)R/T appointment yesterdayStart: 09-18-2023 End: 28-24-3268Fakkzql encounter procedureTonie Rosado MD Work Phone: Neurological RestorationComment on above: Hydrocephalus, adult (HCC) (Primary Dx); Other hydrocephalus (HCC); Meningitis, fungal; Weakness of both lower extremities; SpasticityStart: 53-38-8586Wtpymf OnlyCarrylie Mccarty MD Work Phone: Infectious DiseaseStart: 77-92-3717Gwavzv OnlyNicole Knightsen PROCUREMENT DIRECTOR.STABLE HELPER Work Phone: UrologyComment on above:History of bladder cancer (Primary Dx)Start: 87-10-5157lomjovxhcmLvnl Almassi MD Work Phone: UrologyStart: 94-44-0083Xqzhomfts encounterStoma Therapy Work Phone: HOSP STOMAComment on above:Stoma ConsultStart: 09-12-2023 End: 31-02-9380Wzqzbsz encounter procedurePeterson Gonsalez MD Work Phone: UrologyComment on above:History of bladder cancer (Primary Dx); Severe protein-calorie malnutrition (HCC)Start: 09-12-2023 End: 29-68-4959Oxemntl evaluation of patient and reportStoma Therapy Work Phone: Colorectal SurgeryComment on above:Attention to urostomy (HCC) (Primary Dx); Attention to artificial opening of urinary tract (HCC)Start: 09-06-2023 ambulatoryCon Oconnor MD Work Phone: Neurological RestorationStart: 77-40-2958Ubmweuj encounter procedureMarlene Cordero PA-C Work Phone: Neurological RestorationComment on above:R/T appointment with movement specialistStart: 31-55-3861Mvgsbhsih encounterMarlene Cordero PA-C Work Phone: Neurological RestorationComment on above:Patient UpdateStart: 09-04-2023 End: 84-24-5427ykgmwifzphNmpbtpk A Rammo MD Work Phone: Neurological RestorationComment on above:Communicating hydrocephalus (HCC) (Primary Dx)Start: 09-04-2023 End: 43-41-1356Iqyyeqzmvpbl consultation with Sandhya Oconnor MD Work Phone: Neurological RestorationStart: 80-87-5177Vwwmhvlay encounterJamie Mccarty MD Work Phone: Infectious DiseaseStart: 15-23-5450wmxkzzkskpAjtiq Schwieterman PA-C Work Phone: Neurological RestorationComment on above:CT scanStart: 08-30-2023 End: 26-37-5969Gpnsmlr encounter procedureMarlene CRISTINA-Clemencia Work Phone: Neurological RestorationComment on above:Other hydrocephalus (HCC) (Primary Dx)Start: 81-47-7866Nhsxxjdzr encounterAnna Erich RNMetroMetrohealth Main Campus Medical Center Urologic SurgeryStart: 08-28-2023 End: 60-52-7926pngxnawozoEUQDD REDDYFacility:METROHealthStart: 08-28-2023 End: 27-61-3878Vruxmyenzy hospital visit by physicianCentra [facility] RadiologyComment on above: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)Start: 08-27-2023 Telephone encounterJemayco Dalton RNMetroHealth NeurosurgeryStart: 08-23-2023 Telephone encounterMaurilio SalvadorMetroMetrohealth Main Campus [facility] Center NeurosurgeryStart: 90-14-8217Ivi- patient / Non-visitFirelands Physician GroupFormerly [facility] Work Phone: Start: 54-97-2059Yjzyjdxei to same day surgery center Daniel Figueroa MD Work Phone: [facility]Met[facility] NeurosurgeryComment on above:CT scanStart: 72-16-4868F-mail encounter from Shira Figueroa MD Work Phone: [facility]Met[facility] NeurosurgeryStart: 62-11-1509Kjunpsunm encounterArlene Chambers MD Work Phone: MetfrancescoMetrohealth Main Campus [facility] Center Urologic SurgeryStart: 08-14-2023 End: 80-71-1834Wwlpelw encounter procedureAashish Monge PA-C Work Phone: Orthopaedics ClevelandComment on above:Closed nondisplaced transverse fracture of left patella, initial encounter (Primary Dx) Start: 08-14-2023 End: 46-06-6273Gwyvrqzcwc hospital visit by physicianPappas [facility] Comment on above:Closed nondisplaced transverse fracture of left patella, initial encounter [S82.035A]Start: 43-35-9299Gmevnvvsp encounterAndmargret Andujar RNUniversity Hospitals Geauga Medical Center Surgery GeneralStart: 45-95-3047Chlntkwby encounterStoma Therapy Work Phone: HOSP STOMAComment on above:Stoma ConsultStart: 75-86-4563Oowcdhyyb encounterAndmargret Andujar RNUniversity Hospitals Geauga Medical Center Surgery GeneralStart: 66-96-0162Uotrnfohn encounterAndmargret Andujar RNMetroHealth Surgery GeneralStart: 08-01-2023 End: 23-19-2521iyhmbrvjoiEfgyqsrd Seybert PA-C Work Phone: [facility] Work Phone: Comment on above:Left patellaStart: 08-01-2023 Telephone encounterJamie Mccarty MD Work Phone: Infectious DiseaseComment on above:Insurance Authorization; NoxafilStart: 08-01-2023 End: 19-22-6286Erzviyt encounter procedureDuke Health Physician GroupUniversity Hospitals Geneva Medical Center Work Phone: Start: 12-30-7433mqsqczrxdyYkmdrf Isada MD Work Phone: Infectious DiseaseComment on above:Noxifil through MerckStart: 65-32-8251Pcvpbwatc encounterJennifer Sandhu RNUniversity Hospitals Geauga Medical Center Surgery GeneralStart: 07-26-2023 End: 23-17-4148pcwemttbidMWCGGEV PROVIDERFacility:METROHealthStart: 07-26-2023 End: 14-31-2909ftxkfqaaqdTFYEF REDDYFacility:METROHealthStart: 07-26-2023 End: 52-50-6488Hevrpat encounter Luciana Figueroa MD Work Phone: MetUniversity [facility] NeurosurgeryComment on above: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)Intraoperative ureteral injury (Primary Dx) Start: 07-18-2023 End: 50-76-3397fqfdnjxxnhZYWHSVF PROVIDERFacility:METROHealthStart: 07-18-2023 End: 21-78-7811Bayrqm outpatient visit 15 minutesAcute ResidentUniversity Hospitals Geauga Medical Center Acute Care SurgeryComment on above:Small bowel obstruction (HCC) (Primary Dx)Start: 07-17-2023 End: 72-77-1952mebrhtlyoqBtzvueznpSelect [facility] Work Phone: Start: 07-17-2023 End: 90-13-7534Xncemoe encounter procedureDuke Health Physician GroupUniversity Hospitals Geneva Medical Center Work Phone: Start: 67-18-9881Uavviclprz and management of inpatientVANESSA HOFacility:METROHealthStart: 40-69-5962Wnakziose encounter Jennifer Sandhu [facility] Surgery GeneralStart: 41-88-1753Nkdakbkclw and management of inpatientVANESSA HOFacility:METROHealthStart: 28-73-0369qptgldphke Marlene Cordero PA-C Work Phone: Neurological RestorationComment on above:AV Shunt Start: 45-51-1800Cviykipsme and management of inpatientVANESSA HO Facility:METROHealthStart: 11-42-0350Cdcusasyny and management of inpatient BROOKS HOFacility:METROHealthStart: 78-21-8948Jvqwojktjp and management of inpatientVANESSA HOFacility:METROHealthStart: 64-06-7670Rnhvndystf and management of inpatientVANESSA HOFacility:METROHealthStart: 06-26-2023 End: 56-03-6564Tarlvxv encounter Sindy Gonsalez MD Work Phone: UrologyComment on above:APPOINTMENT CANCELLED (Primary Dx)Start: 06-25-2023 End: 60-69-3330latcldqsadFGEBXTW PROVIDERFacility:[facility] HospitalStart: 06-25-2023 Emergency department patient visitISIS LEWISFacility:[facility] HospitalStart: 06-25-2023 End: 11-93-9295Jiuqgmtcdb and management of inpatientMattedyta Roldan MD Other Phone: [place] [address] EastStart: 40-16-2179Mao-patient / Non-visitFirelands Physician Group-[facility] Work Phone: Start: 06-21-2023 End: 60-92-7376brhkajgawbHnnwlpyw Seybert PA-C Work Phone: Orthopaedics ClevelandComment on above:Closed nondisplaced transverse fracture of left patella, initial encounter (Primary Dx) Start: 06-21-2023 End: 61-61-8834Cqhyqpefwshh consultation with Miguel Monge PA-C Work Phone: [facility] HOSPITALStart: 20-14-0550NxesbaNnxsft Isada MD Work Phone: Infectious DiseaseComment on above:Refill Request Start: 14-35-0144hprnouowgjQg Pcp APRNNsan luis rey hospitalgate Clinic EnterpriseStart: 06-18-2023 End: 12-53-8254Qopzeyatir hospital visit by physicianPremral Francesco Jya Mc Work Phone: RadiologyComment on above:Closed nondisplaced transverse fracture of left patella, initial encounter [S82.035A]History of bladder cancer [Z85.51]Start: 05-28-2023 End: 93-48-7724ryyswwzwbeWqrqyszg Ball Other [place] [employer] Other Start: 77-75-5340Blcthp outpatient visit 15 minutes [facility] ClinicStart: 05-10-2023 End: 23-77-7663Wlsxoqo encounter procedureJamie Mccarty MD Work Phone: Infectious DiseaseComment on above:Fungal meningitis (Primary Dx); Spinal cord mass (HCC); Type 1 diabetes mellitus with unspecified complications (HCC); alf (current) use of antibiotics; Communicating hydrocephalus (HCC)Start: 05-09-2023 End: 96-48-3240Pascihptnb hospital visit by physiciani [facility] Miriam (1.5t) Work Phone: RadiologyComment on above:Cervicalgia [M54.2]Start: 04-25-2023 End: 23-30-6106rbjsfleamsBxmxcdiq [place] Other [place] Other Start: 18-56-0803Yqgpsx outpatient visit 15 minutes Juliette BerumenKettering Health Miamisburgtart: 04-25-2023 End: 08-34-6955Qqflism encounter procedureFirricardo Physician Group-[facility] Work Phone: Start: 04-12-2023 End: 00-95-1249fpcynrfdscSkhaxlcb [place] Other [place] Other Start: 06-38-6264Vlusegmbm encounterBemiladisHealthSouth - Specialty Hospital of Uniontart: 03-19-2023 End: 92-06-6231Gvlawgr encounter procedureJamie Mccarty MD Work Phone: Infectious DiseaseComment on above:Fungal meningitis (Primary Dx); Acute pain of both shoulders; Obstructive hydrocephalus (HCC); Therapeutic drug monitoring; meterman (current) use of antibiotics; Spinal cord mass (HCC); Type 1 diabetes mellitus with unspecified complications (HCC); Myelitis (HCC)Start: 03-02-2023 End: 76-65-5915dwqusnadisIpmgrptv [place] Other [place] Other Start: 24-10-7473Eszftg outpatient visit 15 minutes Shelbi Lozano [place] [facility] ClinicStart: 01-21-2023 End: 93-62-0128spbnsyhlppOblqsthg Ball Other [facility] [employer] Other Start: 90-27-1186Xdmfsbams encounterJuliette [facility] Medical ClinicStart: 01-18-2023 End: 77-28-8309wepsmhwvbnGwecnsav Ball Other [facility] [employer] Other Start: 70-32-6315Enuoaiy encounter procedureBejosue [facility] Medical ClinicStart: 01-15-2023 End: 50-51-9893Fdhjfzs encounter Todd Mccarty MD Work Phone: Infectious DiseaseComment on above:Fungal meningitis (Primary Dx); Obstructive hydrocephalus (HCC); Spinal cord mass (HCC); Type 1 diabetes mellitus with unspecified complications (HCC); Myelitis (HCC); alf (current) use of antibioticsStart: 77-40-5890Xgjhpewbv encounterAmy RNUrologyComment on above:Urinary supply problemStart: 01-09-2023 End: 44-27-3338Uqrktoq encounter Sindy Gonsalez MD Work Phone: UrologyComment on above:History of bladder cancer (Primary Dx)Start: 01-02-2023 End: 99-67-3011ckcabksuarLbeamfje Ball Other [employer] Groupaudrain medical center [employer] Other Start: 41-46-1857Vukqxhmiq encounterBejosue [facility] ClinicStart: 12-25-2022 End: 87-84-6530Krvewbwuwu hospital visit by physicianArrival Time Radiology Work Phone: Radiology Pet CTComment on above:History of bladder cancer [Z85.51]Start: 12-14-2022 End: 21-19-5711Ilwpgjg encounter Austyn Cordero PA-C Work Phone: Neurological RestorationComment on above:Other hydrocephalus (HCC) (Primary Dx)Start: 11-15-2022 End: 54-26-0006Sxgjqxjbvt hospital visit by physicianArrival Time Radiology Work Phone: Radiology Pet CTComment on above:Other hydrocephalus (HCC) [G91.8]Start: 10-18-2022 End: 91-52-8232Mojnyjv encounter procedureJamie Mccarty MD Work Phone: Infectious DiseaseComment on above:Therapeutic drug monitoring (Primary Dx); Fungal meningitis; Spinal cord mass (HCC); Type 1 diabetes mellitus with unspecified complications (HCC)Start: 10-03-2022 End: 73-20-0747arrshyhdemRX Juliette Berumen Work Phone: [facility] Work Phone: Start: 10-03-2022 End: 53-78-9900Fogkiyt encounter procedureDO Juliette Berumen Work Phone: [facility]-Electrodiagnostics Work Phone: Start: 44-45-7378sqyrbzuihrHzivqmd D Danese Facility:[id number]: 09-28-2022 End: 65-24-5753vulpaqvbpbLP Juliette Berumen Work Phone: [facility] Work Phone: Start: 09-28-2022 End: 40-28-4057Tkijkztwec Recurring Juliette Berumen Work Phone: [facility]-Wound Care Misty Work Phone: Start: 09-26-2022 End: 11-84-5790zbxbklfngkNksieb Braun Other [place] [employer] Other Start: 02-48-6916Ojyuoy outpatient visit 15 minutes Kalli [facility]Start: 09-21-2022 End: 28-55-3635Fgkomlu encounter Austyn Cordero PA-C Work Phone: Neurological RestorationComment on above:Other hydrocephalus (HCC) (Primary Dx)Start: 09-15-2022 End: 63-06-2277yzlguiwplcHsyblpwa Ball Other [place] Other Start: 37-18-3067Rrakpb outpatient visit 25 minutes Juliette Mac [facility] ClinicStart: 09-14-2022 End: 93-21-5033Mwsajegmwa hospital visit by physicianCt [facility] Miriam Work Phone: RadiologyComment on above:Other hydrocephalus (HCC) [G91.8]Start: 08-25-2022 End: 93-91-9977qybylxmxvxFnxvksqq Ball Other [place] Other Start: 72-40-7427Xnckwmsfd encounterBenarnaldo [facility] ClinicStart: 08-25-2022 End: 08-70-3740Zgsxuwr encounter Austyn Cordero PA-C Work Phone: Neurological RestorationComment on above:Other hydrocephalus (HCC) (Primary Dx); Severe protein-calorie malnutrition (HCC)Start: 78-68-2208Onvxspwvc encounter Marlene Cordero PA-C Work Phone: Neurological RestorationComment on above:Patient UpdateStart: 08-17-2022 End: 60-75-5693xlscytmwxjWozfgszr Ball Other [place] Other Start: 61-99-5042Orybifysq encounterJamie Mccarty MD Work Phone: Infectious DiseaseComment on above:Patient Question Start: 08-16-2022 End: 10-80-0498hhgexskykfKxjcmxvg Ball Other [employer] Other Start: 68-37-4450Lffuqdpvk encounterBenjamin BallFPG Ball Medical ClinicStart: 08-16-2022 End: 95-78-3057Fqjohttwv therapyPeterson Gonsalez MD Work Phone: UrologyComment on above:Malignant neoplasm of urinary bladder, unspecified site (HCC) (Primary Dx); Severe protein-calorie malnutrition (HCC); Type 1 diabetes mellitus with unspecified complications (HCC)Start: 08-16-2022 End: 60-14-5129Sipgqnupaamc consultation with Kim Gonsalez MD Work Phone: [facility] MAINStart: 08-16-2022 End: 09-11-2850Ehgxsiuksk hospital visit by physicianArrival Time Radiology Work Phone: Radiology Pet CTComment on above:Other hydrocephalus (HCC) [G91.8]Start: 08-11-2022 End: 41-71-6837wykimglljuXsqlblad Ball Other [employer] Other Start: 52-80-1511Vtkohp outpatient visit 25 minutes Juliette BallFPG Ball Medical ClinicStart: 82-09-6689qoujaioavaCC [facility] Facility:L5Foxnm: 08-07-2022 End: 73-75-0947alsahqfwduHcyxqddo Ball Other [employer] Other Start: 60-72-3230Qizpbxqle encounterBenjamin BallFPG [facility] ClinicStart: 08-04-2022 End: 24-29-2797ojhuccgimtYokssqwo Ball Other [employer] Other Start: 37-11-8417Xvqaicieo encounterBenjamin BallFPG [facility] ClinicStart: 07-25-2022 End: 69-75-8637ljxiolegyaKufdpaqc Ball Other [employer] Other Start: 66-63-9392Voymcwjzy encounterBenjamin BallFPG [facility] Medical ClinicStart: 19-03-5799Nugvqe Perla Campos MD Work Phone: Endovascular CenterComment on above:Other hydrocephalus (HCC) (Primary Dx)Start: 42-07-8862Wcrfgy Silvia Mccarty MD Work Phone: INFD HOSPComment on above:Cervicalgia (Primary Dx) Start: 07-14-2022 End: 74-73-5692qilwlrfdmbAjqcyvqi Ball Other [place] Other Start: 68-02-3346Qgteujicg encounterBenjamin BallFPG [facility] Medical ClinicStart: 06-28-2022 End: 31-64-7495gxtfurncxeAxyilsry Ball Other [place] Other Start: 06-91-4547Uhrxjewkp encounterBenjamin BallFPG Ball Medical ClinicStart: 85-62-5979Clpyvhjsk encounterMik Zapata MD Work Phone: me Provider AdultComment on above:Hospital To Hospital Start: 05-27-2022 End: 78-99-3817mudrvxcgclKPHWUK LOMBARDIFacility:O8Peoim: 05-25-2022 End: 96-82-4029nbiwdgzentRcfmfael Ball Other [place] Other Start: 37-75-0787Vzvqqyo facility discharge management 30 minutesBenjamin BallBellevue Care CenterStart: 05-21-2022 End: 57-65-6505mhlsmlcfbxUhdccvpm Ball Other [place] Other Start: 70-42-5526Rxfvqakjw encounterBenjamin BallFPG [facility] ClinicStart: 05-15-2022 End: 40-09-5617rogopevufyDivuwcwt Ball Other [place] Other Start: 61-26-6905Ceyorjkwp encounterChrisarnaldo [facility] Medical ClinicStart: 05-08-2022 End: 91-59-7257Lirymszxaw and management of inpatientDR GAURI JOY .Facility: Start: 05-02-2022 End: 36-56-6837Somcqaw encounter procedurePeterson Gonsalez MD Work Phone: UrologyComment on above:History of bladder cancer (Primary Dx)Start: 04-16-2022 End: 40-36-7494sixdswznoxHO JULIETTE BERUMENFacility:R0Tbugj: 03-29-2022 End: 72-30-6914Ggjosakjwk and management of inpatientDR CLARE MONTESINOS . Facility:J8Upuvm: 03-22-2022 End: 82-18-6232juivwmtlcoGD JULIETTE BERUMENFacility:K9Glnhm: 03-13-2022 End: 37-58-2861Guzzslb encounter procedureDion Montez MD Work Phone: General SurgeryComment on above:S/P exploratory laparotomy (Primary Dx); Severe protein-calorie malnutrition (HCC); Chronic low back pain without sciatica, unspecified back pain lateralityStart: 03-09-2022 End: 81-25-3372xerovutofrVB ALYCE WASHINGTONRFacility:K5Sausc: 02-24-2022 End: 15-21-4937ylpfafyriuGO ALY MONTEZFacility:K6Ndktm: 02-10-2022 End: 45-42-4954Hygbavu encounter procedureDion Montez MD Work Phone: General SurgeryComment on above:S/P exploratory laparotomy (Primary Dx); Severe protein-calorie malnutrition (HCC)Start: 01-31-2022 End: 44-05-8950ocnkvppipiPB BENJAMIN BALLFacility:J1Bocvy: 60-23-1827Kqlkjqhfw encounterPeterson Gonsalez MD Work Phone: UrologyComment on above:AppointmentPatient Question Start: 01-30-2022 End: 23-02-3650Qdbjdnq encounter procedureDion Montez MD Work Phone: General SurgeryComment on above:Severe protein-calorie malnutrition (HCC) (Primary Dx); S/P exploratory laparotomyStart: 01-30-2022 End: 32-85-4231Xnmdjsc encounter procedurePeterson Gonsalez MD Work Phone: UrologyComment on above:History of bladder cancer (Primary Dx); Malignant neoplasm of urinary bladder, unspecified site (HCC)Start: 01-27-2022 Telephone encounterPeterson Gonsalez MD Work Phone: UrologyComment on above:AppointmentStart: 01-23-2022 ambulatoryRossana D DaneseFacility:[id number]: 88-98-1457Wycduvnrf encounter Kalli Simons MD Work Phone: [phone] InstituteComment on above:Follow Up Phone Call (All clear )Start: 59-17-5807Mlpvskykd encounterPeterson Gonsalez MD Work Phone: UrologyComment on above:Appointment ConfirmationStart: 01-08-2022 End: 10-44-1339Fwmiyakwsc and management of inpatientDO Juliette Berumen Work Phone: [facility]-[address] [facility] Start: 01-07-2022 End: 84-22-6529Xauvyz Andres Kruger MD Work Phone: General SurgeryStart: 45-98-0536Quyynnsrb encounter Peterson Gonsalez MD Work Phone: UrologyComment on above:AppointmentStart: 95-69-8121Mk RenewalCaitlin Omnaveenie PA-C Work Phone: [phone]-Nvpnfyecorfmh-[facility] [place] [address] Work Phone: start: 82-53-2880Adovwflxe encounterPeterson Gonsalez MD Work Phone: UrologyComment on above:Patient UpdateStart: 16-59-3945Aeorhopzx encounterPeterson Gonsalez MD Work Phone: UrologyComment on above:OrdersStart: 12-14-2021 Telephone encounterPeterson Gonsalez MD Work Phone: UrologyComment on above:Results; Patient UpdateStart: 12-01-2021 End: 96-92-0127Htejnetwrq hospital visit by physicianCt Prep [facility] LoraRadiology Comment on above:Canceled (CC cx: Equipment, Prep, Appropriateness)Start: 11-30-2021 End: 68-53-2459Thsqms Meme Gonsalez MD Work Phone: UrologyComment on above:Malignant neoplasm of urinary bladder, unspecified site (HCC) (Primary Dx)APPOINTMENT CANCELLED (Primary Dx) Start: 16-36-7656Picnxx Meme Gonsalez MD Work Phone: UrologyComment on above:ResultsStart: 25-98-5994Itadox outpatient visit 25 minutesCaitlin Kimberlyn PA-C Work Phone: [phone]-Dsybdaxdvxxzy-[facility] [place] [address] Work Phone: start: 10-25-2021 End: 00-55-3783Brzmszpmva hospital visit by physicianArrival Time Radiology Work Phone: Radiology Pet CTComment on above:History of bladder cancer [Z85.51]Start: 84-71-3143Hqjmhhktw encounterChelsie Barrow RNRadiology Pet CTComment on above:Lab OrdersStart: 10-11-2021 End: 47-49-2220Djqoaqo encounter procedurePeterson Gonsalez MD Work Phone: UrologyComment on above:History of bladder cancer (Primary Dx); Abdominal pain, unspecified abdominal locationStart: 90-46-4902Nbkepoyjw encounterPeterson Gonsalez MD Work Phone: UrologyComment on above:Sooner appointment request Start: 09-21-2021 End: 29-82-1964Bbwnpkgpqn hospital visit by physicianMyrna Mendez MD Work Phone: Ambulatory SurgeryComment on above:Nausea and vomiting, unspecified vomiting type [R11.2]Start: 08-23-2021 End: 50-30-5559Mvydosw encounter procedureJose Schmid APRN.CNP Work Phone: GastroenterologyComment on above:Encounter for screening for malignant neoplasm of colon (Primary Dx); Nausea and vomiting, unspecified vomiting type; Early satiety; NauseaStart: 02-11-1359Xlhvgf outpatient visit 25 minutesCaitlin Omoregie PA-C Work Phone: [phone]-Flveycngbscin-[facility] [address] [address] Work Phone: start: 28-46-5337Owrovhv encounter procedureCaitlin Omoregie PA-C Work Phone: [phone]-Igpniedvhbaen-[facility] [place] [address] Work Phone: start: 03-16-2021 End: 31-48-2457Fioucydbph hospital visit by physicianArrival Time Radiology Work Phone: Radiology Pet CTComment on above:Malignant neoplasm of urinary bladder, unspecified site (HCC) [C67.9]Start: 02-04-2021 End: 07-77-0212Lppatvzap encounterPeterson Gonsalez MD Work Phone: UrologyComment on above:AppointmentRequest Outside Medical RecordsStart: 33-57-0358Prnmsq outpatient visit 25 minutesCaitlin Omoregie PA-C Work Phone: [phone]-Tsqenelxnpbef-[facility] [place] [address] Work Phone: start: 01-83-8081Ypkzgko encounter procedureCaitlin Omoregie PA-C Work Phone: [phone]-Vxtuorcstr-[facility] [address] Work Phone: Start: 97-65-4531RJMFWLiunffq Omoregie PA-C Work Phone: [phone]-Ovallpemvgtvy-[facility] [place] [address] Work Phone: start: 81-12-8983Ainuqlu encounter procedureCaitlin YutvnwneDF-Ikgxswhhnurma-[facility] [address] Work Phone: start: 06-13-2019 End: 67-33-6962Aujtlga encounter procedureKALLI Santizo [facility] Start: 06-13-2019 End: 72-32-5810Jysdeqhpad hospital visit by physicianMasuncion Austin 1MWHZ LaboratoryComment on above:Right wrist painStart: 67-86-0522Kqdkyfn encounter procedureCaitlin IueskavdHZ-Mjwzkvasyvwiw-KZJ [address] [address] Work Phone: start: 53-22-4781Czzasdq encounter procedureCaitlin IdjdkjivFS-Mqdecoonoazuf-[facility]D [address] [place] [address] Work Phone: Procedures DateProcedureProcedure DetailPerforming ClinicianStart: 49-64-4926Eslatk-up visitFollow UpMARIELLE SEYBERTStart: 16-43-6901Gzwpiq-up visitFollow UpCARLOS ISADAStart: 83-95-5621Cx abdomen & pelvis w/o contrst 1/> body reNicole Madhavi PROCUREMENT DIRECTOR.STABLE HELPER Work Phone: Start: 40-95-1454Mouyw metabolic panel calcium total Molly Madhavi PROCUREMENT DIRECTOR.STABLE HELPER Work Phone: Start: 96-27-5888Nbsbryat screenMARTORINA BRAUNComment on above:Order Comment: Specimen Type: BLOOD SPECIMENOrdering Facility: [facility] Address:[address] [place], [place] [address]Performed By: #### [facility] ####TOY BLOOD BANKCLIA [id number] [place] [address] [place] AMERICAStart: 61-84-9860Sq head/brain w/o contrast Roselyn Cordero PA-C Work Phone: Start: 54-91-0657Gjmwy cultureBenjamin Ball DO Work Phone: Start: 74-63-0328Rovthdr microbial cultureBenjamin Ball DO Work Phone: Start: 03-70-8896Ljkbttlsq microbial cultureBenjamin Ball DO Work Phone: Start: 25-94-7196Ugmb stain microscopyBenjamin Ball DO Work Phone: Start: 52-55-7540TZ of abdominal aorta with contrast Jluiette Ball DO Work Phone: Start: 61-74-8924Nh head/brain w/o contrast material Marlene Schwieterman PA-C Work Phone: Start: 26-47-5665Qbjzus scan of lower limb veins Juliette Ball DO Work Phone: Start: 36-29-8162Ghrtt volume recorder pneumoplethysmographyBenarnaldo Ball DO Work Phone: Start: 19-95-6311Y-ray of left footBenarnaldo Ball DO Work Phone: Start: 56-01-3472Uxsomfs microbial cultureBenjamin Ball DO Work Phone: Start: 86-09-9145Qudsqptdr microbial cultureBenjamin Ball DO Work Phone: Start: 13-87-3940Lzwf stain microscopyBenarnaldo Ball DO Work Phone: Start: 79-13-0525Kl head/brain w/o contrast material Marlene Schwieterman PA-C Work Phone: Start: 57-86-3015Lcqxnjslfz A1c/Hemoglobin.total in BloodRuddy Gupta MD Work Phone: Start: 46-50-0856Ix head/brain w/o contrast material Marleen Schwieterman PA-C Work Phone: [phone]: 44-85-5486To head/brain w/o contrast material Marlene Schwdebierman PA-C Work Phone: Start: 29-96-3804Jgsnr count complete auto&auto difrntl wbcAguila Giraldo MD Work Phone: Start: 65-95-7314R-reactive Lucero Sr PROCUREMENT DIRECTOR.STABLE HELPER Work Phone: Start: 91-08-5336Hfoyy count complete auto&auto difrntl wbcAguila Giraldo MD Work Phone: Start: 75-92-2605Z-reactive proteinSbhargav Sr PROCUREMENT DIRECTOR.STABLE HELPER Work Phone: Start: 40-94-8300Ht head/brain w/o contrast material Melva-Leonarda MorrisonStart: 03-71-6211Cbxbr count complete auto&auto difrntl wbc Aguila Giraldo MD Work Phone: Start: 82-61-7735T-reactive proteinSbhargav Sr PROCUREMENT DIRECTOR.STABLE HELPER Work Phone: Start: 65-22-0561Orjmc count complete auto&auto difrntl wbcAguila Giraldo MD Work Phone: Start: 25-75-9700R-reactive Lucero Sr PROCUREMENT DIRECTOR.STABLE HELPER Work Phone: Start: 95-33-4827Qwhle metabolic panel calcium total Aguila Giraldo MD Work Phone: Start: 10-12-2023H/O: surgeryS/P exploratory laparotomyCaleb Consuelo HIGHTOWER Work Phone: Start: 02-58-0216PCUIXMWJ NON-GYNNicole Knightsen PROCUREMENT DIRECTOR.STABLE HELPER Work Phone: Start: 52-70-9489Pvcnedtnw Comparison study - date and timeDcyn Figueroa MD Work Phone: Start: 67-27-3500Ogxwsfr blood reagent stripDaniel Figueroa MD Other Phone: Start: 48-14-9994Jsura count complete automatedAli Christel LOPEZ Other Phone: Start: 16-61-4258Pfysvur blood reagent stripDaniel Figueroa MD Other Phone: Start: 07-12-2023 End: 20-43-6898Pekmzmk blood reagent stripDaniel Figueroa MD Other Phone: Start: 31-83-6285Vjhie count complete automatedAli Christel LOPEZ Other Phone: Start: 07-11-2023 End: 82-63-7580Jngaiaf blood reagent Eric Figueroa MD Other Phone: Start: 07-11-2023 End: 90-07-8811Qnhvisq blood reagent stripDaniel Figueroa MD Other Phone: Start: 28-30-8635Arhvfqg blood reagent Eric Figueroa MD Other Phone: Start: 26-46-9497Vnkuvtp blood reagent Eric Figueroa MD Other Phone: Start: 97-28-2798Qptxqiz blood reagent Eric Figueroa MD Other Phone: Start: 62-75-0730Bwffkpw blood reagent stripDaniel Figueroa MD Other Phone: Start: 07-11-2023 End: 39-54-1460Fbjeb count complete automatedAli Christel LOPEZ Other Phone: Start: 64-47-7178Pdsea of Erasmo Rizo MD Other Phone: Start: 00-22-9356Ckkfvau blood reagent stripDaniel Figueroa MD Other Phone: Start: 74-90-8426Xqnolig blood reagent stripDaniel Figueroa MD Other Phone: Start: 07-19-6007Nomvu gases any combination ph pco2 po2 co2 kkq1Nemddvv Laurence DO Other Phone: start: 07-10-2023 End: 89-81-6673Uqvaamn blood reagent Eric Figueroa MD Other Phone: Start: 07-10-2023 End: 82-32-5448Bwvgs of Gary Nguyen MD Other Phone: Start: 07-10-2023 End: 62-69-1324Ebtoe gases any combination ph pco2 po2 co2 wlh9Krwe Patrick LOPEZ Other Phone: Start: 07-10-2023 End: 75-03-9509Jbddkoiicelkbcfzn measurementEmma Patrick LOPEZ Other Phone: Start: 07-10-2023 End: 55-27-8992GQFNCFSI, SHUNTDaniel Figueroa MD Other Phone: [phone]: 99-60-6682Iiqlhyw blood reagent stripDanile Figueroa MD Other Phone: [phone]: 38-63-7334Gborbxkxmd glycosylated w8vBmviwtimothy Weinstein DO Other Phone: Start: 82-57-8108Pmfjfmu blood reagent stripDaniel Figueroa MD Other Phone: Start: 42-97-4871Vtbgrhj blood reagent stripDaniel Figueroa MD Other Phone: [phone]: 05-86-2021Mfyhdvn blood reagent stripDaniel Figueroa MD Other Phone: Start: 71-99-8516Gxiaq typing, ABO, Rho(D) and RBC antibody screeningIsaías Hardin MD Other Phone: Start: 23-84-1793Xfzgyev blood reagent stripDaniel Figueroa MD Other Phone: [phone]: 41-19-6425Qakxh of magnesiumKemi Kearney MD Other Phone: Start: 31-63-2326Iy head/brain w/o contrast material Richard Navarro PA-C Other Phone: [phone]: 84-81-9132Nssavzq blood reagent stripDaniel Figueroa MD Other Phone: Start: 07-08-2023 End: 09-07-7544Fylagwi blood reagent stripDaniel Figueroa MD Other Phone: Start: 08-87-0251Lahmhgc blood reagent stripDaniel Figueroa MD Other Phone: [phone]: 75-57-1274Gbjawuf blood reagent stripDaniel Figueroa MD Other Phone: Start: 57-55-0821Oovvz of Lazaro Kearney MD Other Phone: [phone]: 40-57-2830Xmweysg blood reagent stripDaniel Figueroa MD Other Phone: [phone]: 33-82-5639Fdksjrf blood reagent stripDaniel Figueroa MD Other Phone: [phone]: 27-42-3226Cwphvvx blood reagent stripDaniel Figueroa MD Other Phone: Start: 62-93-3477Mdnmptn blood reagent stripDaniel Figueroa MD Other Phone: [phone]: 53-31-5488Vhivf of Lazaro Kearney MD Other Phone: Start: 79-39-9649Qrszfpd blood reagent stripDaniel Figueroa MD Other Phone: Start: 04-97-1683Nhrcngo blood reagent stripDaniel Figueroa MD Other Phone: Start: 95-36-7311Jbigucg blood reagent stripDaniel Figueroa MD Other Phone: Start: 67-76-2153Pxxjfgx blood reagent stripDaniel Figueroa MD Other Phone: Start: 16-39-8023Ktesj of Lazaro Kearney MD Other Phone: Start: 07-05-2023 End: 12-95-1826Hvtnuee blood reagent stripDaniel Figueroa MD Other Phone: Start: 07-05-2023 End: 55-85-5380Pmziwca blood reagent stripDaniel Figueroa MD Other Phone: Start: 07-05-2023 End: 22-47-9462Juyfm count complete automatedJacob Cruzito DO Other Phone: start: 07-05-2023 End: 24-18-4523Pbyuvociael of packed red blood cellsBreanna Bauman MD Other Phone: [phone]: 43-56-7183Bp head/brain w/o contrast material Nan Iverson MD Other Phone: [phone]: 07-05-2023 End: 23-23-5934Fdelzcs blood reagent stripKyrie Stovall MD Other Phone: [phone]: 93-39-1130Ifrho typing, ABO, Rho(D) and RBC antibody screeningBeranna Bauman MD Other Phone: [phone]: 70-55-2128HCT leukocytes reducedBreanna Bauman MD Other Phone: [phone]: 10-96-5145RMM BLOOD CELL UNIT STATUSBreanna Bauman MD Other Phone: [phone]: 07-05-2023 End: 99-06-3147Mlezl of Lazaro Kearney MD Other Phone: Start: 96-13-6712Sjhgmga blood reagent stripKyrie Stovall MD Other Phone: start: 02-88-6338Qzvokst blood reagent stripKyrie Stovall MD Other Phone: start: 07-04-2023 End: 46-01-1701Gxkqh count complete automatedNan Iverson MD Other Phone: [phone]: 83-44-2894GTI BLOOD CELL COMPONENTNan Iverson MD Other Phone: [phone]: 01-45-7023Fxnbm of Lazaro Kearney MD Other Phone: Start: 16-48-4087Bivsxmc blood reagent stripKyrie Stovall MD Other Phone: start: 07-03-2023 End: 17-01-7621Brtnoho blood reagent stripKyrie Stovall MD Other Phone: start: 07-03-2023 End: 20-10-9708Hasbmkf blood reagent stripKyrie Stovall MD Other Phone: [phone]: 60-88-3578QZUXT TUBEKyrie Stovall MD Other Phone: [phone]: 28-18-9060JBTPWTLY TOP TUBE, BLOODKyrie Stovall MD Other Phone: [phone]: 07-03-2023 End: 60-01-6766Suskdvc blood reagent stripKyrie Stovall MD Other Phone: [phone]: 70-93-4332Iygbtsc blood reagent stripKyrie Stovall MD Other Phone: [phone]: 74-98-4001Tghdoui blood reagent stripKyrie Stovall MD Other Phone: [phone]: 36-21-0069Zlpujuz blood reagent stripKyrie Stovall MD Other Phone: [phone]: 07-03-2023 End: 09-40-0102Qskiu of Lazaro Kearney MD Other Phone: Start: 39-00-4493Hhrfzkz blood reagent stripKyrie Stovall MD Other Phone: start: 66-79-0525Tvqauwd blood reagent stripKyrie Stovall MD Other Phone: [phone]: 67-95-8120Lejadfqkjy examination skull 4/> viewsJacob Cruzito DO Other Phone: [phone]: 93-64-6900Oypgkqv blood reagent stripKyrie Stovall MD Other Phone: start: 07-02-2023 End: 76-10-6564Zivadki blood reagent stripKyrie Stovall MD Other Phone: [phone]: 92-80-6739Spjow of Lazaro Kearney MD Other Phone: Start: 01-41-4145Dckdaak blood reagent stripVankelly Martinez MD Other Phone: [phone]: 06-24-4662Mmzldze blood reagent stripBrooks Martinez MD Other Phone: [phone]: 93-46-5570Hnmirez blood reagent stripBrooks Martinez MD Other Phone: [phone]: 07-01-2023 End: 67-66-3578Txmdhzv blood reagent stripVaneklly Martinez MD Other Phone: [phone]: 92-09-0851Mxmnkcn blood reagent stripBrooks Martinez MD Other Phone: [phone]: 06-36-3462Hfeymco blood reagent stripBrooks Martinez MD Other Phone: [phone]: 34-19-6154Wjiyc of Lazaro Kearney MD Other Phone: [phone]: 83-60-9697Xtgkzvz blood reagent stripBrooks Martinez MD Other Phone: [phone]: 71-53-4369Mknnaaw blood reagent stripBrooks Martinez MD Other Phone: [phone]: 61-50-8079Pfzchiy blood reagent stripBrooks Martinez MD Other Phone: [phone]: 76-77-7249Lkcmggl blood reagent stripBrooks Martinez MD Other Phone: [phone]: 77-31-1163Xedib of Fang Kearney MD Other Phone: [phone]: 76-79-3777Qmmdzrg function panelBenitez Gaviria MD Other Phone: [phone]: 76-80-3741Riyfubg blood reagent stripBrooks Martinez MD Other Phone: [phone]: 76-24-2132Fcujmnn blood reagent stripVankelly Martinez MD Other Phone: [phone]: 06-29-2023 End: 98-44-8099Ohngxrf blood reagent stripVankelly Martinez MD Other Phone: [phone]: 42-42-2860Rbvyvyh blood reagent stripBrokos Martinez MD Other Phone: [phone]: 16-98-3635Cctka of Fang Kearney MD Other Phone: [phone]: 03-93-7368Gtyfgsn blood reagent stripBrooks Martinez MD Other Phone: [phone]: 32-75-9116Imzkyfd blood reagent stripBrooks Martinez MD Other Phone: [phone]: 15-52-0688Ydln count misc body fluids w/differential countHeather Raul PA-C Other Phone: [phone]: 06-28-2023 End: 23-75-9191Hvj bact xcpt urine blood/stool aerobic isolHeather Raul PA-C Other Phone: Start: 98-85-2745Nzckmqf body fluid other than blood Concepción [place] PA-C Other Phone: [phone]: 46-61-7022XM PICC INSERT ADULT RN (LYNNETTE)Lam East DO Other Phone: start: 38-26-8621Sx head/brain w/o contrast material Concepción Raul PA-C Other Phone: Start: 83-22-1675Xibvynv blood reagent stripBrooks Martinez MD Other Phone: [phone]: 48-47-8464Zshnlpm blood reagent Nathan Martinez MD Other Phone: start: 91-89-8763Hnqgw of Fang Kearney MD Other Phone: [phone]: 06-27-2023 End: 91-67-6266Pjjpt of Ethel Bauman MD Other Phone: start: 76-06-8151Xgcjd of Andre Bauman MD Other Phone: [phone]: 78-55-8638Scmgj of Alyssia REEDER Other Phone: Start: 51-79-6223Edvbl gases any combination ph pco2 po2 co2 jzc6Gkxzpeob Haag CAA Other Phone: Start: 84-97-1424Wbdaycpgqeuqzwyca measurement Vasquezrudy REEDER Other Phone: Start: 69-53-5294Havij of lactateJonathan Chrissy CAA Other Phone: Start: 55-02-4355Gohut gases any combination ph pco2 po2 co2 ylc7OmvvpahgVasquez Lowe CAA Other Phone: Start: 44-71-4233Hhvatebyvgdrgfkgh measurement Vasquez Lowe CAA Other Phone: Start: 67-44-3489Rmwwx v surg pathology gross&microscopic examBrooks Martinez MD Other Phone: start: 45-33-8457FOZ BLOOD CELL COMPONENTRivas Prasad MD Other Phone: Start: 97-07-7190OZX BLOOD CELL UNIT STATUSRivas Prasad MD Other Phone: Start: 06-27-2023 End: 04-94-7811Fdzjq of lactateAlexandra Linh-Christ CAA Other Phone: Start: 06-27-2023 End: 68-47-1654Tkjkx gases any combination ph pco2 po2 co2 aun4Yicfsbftx Kwit- Christ CAA Other Phone: Start: 06-27-2023 End: 47-36-8797Yzyjzviggbfdaiwaw measurementAlexandra Rhodait-Christ CAA Other Phone: Start: 43-64-5554Yhdffxs blood reagent stripBrooks Martinez MD Other Phone: start: 91-37-5120Wzzjefq blood reagent stripBrooks Martinez MD Other Phone: start: 06-27-2023 End: 99-05-0818Stqakmw blood reagent stripBrooks Martinez MD Other Phone: start: 23-89-8999Djxeqcbutt exam abdomen 1 viewShanda Brown MD Other Phone: Start: 55-02-1881Sgcyufd blood reagent Nathan Martinez MD Other Phone: start: 06-27-2023 End: 20-49-8883Tbvxq of Fang Kearney MD Other Phone: Start: 74-32-4444Ykhvubd blood reagent stripBrooks Martinez MD Other Phone: start: 52-55-0837Ofzoreejve exam abdomen 1 viewKemi Kearney MD Other Phone: Start: 61-19-2636Rohwmjprvs exam abdomen 1 view Eva Mcgarry MD Other Phone: Start: 94-55-8596Rbihm of Montse Mcgarry MD Other Phone: Start: 01-48-3562Kcoqqhbatv exam chest single viewKemi Kearney MD Other Phone: Start: 06-26-2023 End: 19-52-2825Lvcbc of Fang Kearney MD Other Phone: Start: 48-92-0309Bsqsr cultureTang Suarez MD Other Phone: Start: 32-08-0230Pmncc dip stick/tablet rgnt auto w/o microscopyTang Suarez MD Other Phone: Start: 89-31-6066Rzkxk count smear mcrscp w/mnl difrntl wbc countTang Suarez MD Other Phone: Start: 34-33-9315Kycye of Michaelle Suarez MD Other Phone: Start: 30-78-7787Kwsea of Michaelle Suarez MD Other Phone: Start: 20-26-1374Toyeixante exam chest single view John Huang MD Other Phone: Start: 96-91-7983Hgigj typing serologic aboJohn Huang MD Other Phone: Start: 79-75-9864Nhdwtekhf Comparison study - date and timeJohn Huang MD Other Phone: Start: 45-78-6161Ffe routine ecg w/least 12 lds trcg only w/o i&rBlalori Huang MD Other Phone: Start: 06-01-7470Nohxd typing, ABO, Rho(D) and RBC antibody screeningJohn Huang MD Other Phone: Start: 83-93-2193Lxhidkerxphdqu time partial plasma/whole bloodJohn Huang MD Other Phone: Start: 50-42-2957Bsfwccps identified in Urine by CultureStart: 22-30-7534Yblqwzcugw examination knee 1/2 Angie Monge PA-C Work Phone: Start: 82-38-6155Qh abdomen & pelvis w/o contrst 1/> body Ed Gonsalez MD Work Phone: Start: 37-15-5106Eb thorax w/contrast Harpal Gonsalez MD Work Phone: Start: 05-09-2023 End: 64-12-9192Cnuqleti magnetic resonance procedureJamie Mccarty MD Work Phone: Start: 91-19-5655Cl abdomen & pelvis w/o contrst 1/> body Ed Gonsalez MD Work Phone: Start: 31-55-3081Vj thorax w/contrast Harpal Gonsalez MD Work Phone: Start: 39-20-6599Wt head/brain w/o contrast material Marlene Cordero PA-C Work Phone: Start: 91-99-6101Hb head/brain w/o contrast material Marlene Cordero PA-C Work Phone: Start: 83-62-3165Ry head/brain w/o contrast material Maris Campos MD Work Phone: Start: 49-66-9754XH of head without contrastDO Juliette Berumen Work Phone: Start: 99-12-1011Wkumenom tomography of abdomen and pelvis with contrastDO Juliette Berumen Work Phone: Start: 54-27-5799Zz abdomen & pelvis w/contrast Harpal Gonsalez MD Work Phone: Start: 07-33-2505FWNWQAZMTC Jodie Gonsalez MD Work Phone: Start: 52-57-2317Ctva bld gluc mntr dev cleared fda spec home useMyrna Mendez MD Work Phone: Start: 80-18-6502Pdvrp ca scrn not hi rsk indJose Schmid PROCUREMENT DIRECTOR.STABLE HELPER Work Phone: Start: 80-44-7470Tjmwrzvqeubbdpdjxtbrkhigyb transoral diagnosticJose Schmid PROCUREMENT DIRECTOR.STABLE HELPER Work Phone: Start: 78-02-5870ZokrsltmimyTepip Lisi MD Work Phone: Start: 04-16-2021H/O: surgeryHistory of ileal conduit Start: 29-37-3261Im thorax w/o contrast Harpal Gonsalez MD Work Phone: Start: 59-62-0672Slzpu wrist complete minimum 3 views KALLI BRAUNStart: hydroxy includes fractions if performedMARCIA CINDYStart: 92-20-9890Gwstivypvt glycosylated o8hUGGMRI BRAUNStart: 06-13-2019 Radex wrist complete minimum 3 viewsKalli Simons Work Phone: Start: hydroxy includes fractions if performedCailin L. Omoregie Work Phone: Start: 57-14-1467Uzruioglkh glycosylated d1sYdbxem Merari Villasenor Work Phone: H/O: surgeryS/P exploratory laparotomyDion Montez MD Work Phone: H/O: surgeryS/P exploratory laparotomyDion Montez MD Work Phone: H/O: surgeryS/P exploratory laparotomyDion Montez MD Work Phone: H/O: surgeryHistory of ileal conduitDO Juliette Nextpeer Work Phone: SARS Antigen (LFIA)DO Juliette Nextpeer Work Phone: Urine cultureDO Juliette Nextpeer Work Phone: Plan of Treatment DateCare ActivityDetailAuthorStart: 96-15-8401XrcbpvxrcnbWNKIXPKLPABCvbcvyzcq ClinicStart: 94-08-3967PAYVTSEZOT CANCER SCREENINGCOLORECTAL CANCER SCREENING [facility]: 46-73-8978Jklltbmwb for malignant neoplasm of colon [facility] 12-23-2025 End: 67-65-4600JLZLP ONLY - DIAGNOSTIC OU (BOTH EYES)ASCAN ONLY - DIAGNOSTIC OU (BOTH EYES) OPHT Imaging Routine Combined forms of age-related cataract of right eye Combined forms of age-related cataract of left eye Expected: 12/23/2025, Expires: 06/16/2026[facility] SystemComment on above:Expected: 12/23/2025, Expires: 06/16/2026Start: 10-21-0108Cvthvdsd screeningDilated Retinal Exam [facility]: 12-23-2025 End: 01-60-4918PTI BIOMETRY W/ IOL CALC OU (BOTH EYES)IOL BIOMETRY W/ IOL CALC OU (BOTH EYES) OPHT Imaging Routine Combined forms of age-related cataractof right eye Combined forms of age-related cataract of left eye Expected: 12/23/2025, Expires: 06/16/2026[facility] SystemComment on above:Expected: 12/23/2025, Expires: 06/16/2026Start: 75-49-3165MI Controlled (<130/80)BP Controlled (<130/80)[facility]: 39-94-1668SZ Controlled (<130/80)BP Controlled (<130/80)[facility]: 35-47-5359MQ Controlled (<130/80)BP Controlled (<130/80)[facility]: 05-14-2025 End: 25-36-7579Ijmnucf encounter uvthkdxnb67/29/2026 10:15 AM EST Office Visit [facility] [place] [address] [place] [address] [place] [address] [place] [address] Next available [facility] Comment on above:Next available New patientStart: 05-05-2025 End: 35-23-1094zdctlhtmlm59/20/2026 12:00 PM EST [facility] [address] [address] Peterson Gonsalez MD [address] [place] [address] 6 monthvv - h/o bladder cancer per cc chartUrologyComment on above:6 month vv - h/o bladder cancer per cc chartStart: 40-00-8392EX Controlled (<130/80)BP Controlled (<130/80)[facility]: 04-17-2025 End: 78-81-8158UR Chest WO contrastCT CHEST WO IVCON Radiology Routine History of bladder cancer Pulmonary nodule Expected: 04/17/2025, Expires: 11/14/2025 [facility] SystemComment on above:Expected: 04/17/2025, Expires: 11/14/2025Start: 04-17-2025 End: 46-47-5287NS Kidney - bilateral and Urinary bladderUS KIDNEY/BLADDER Radiology Routine Hydronephrosis, unspecified hydronephrosis type Expected: 04/17/2025, Expires: 11/14/2025[facility] Work Phone: comment on above:Expected: 04/17/2025, Expires: 11/14/2025Start: 40-54-6344EZ Controlled (<130/80)BP Controlled (<130/80) [facility]: 04-02-2025 End: 92-62-1132Lprxzmf encounter ifuxlijsx51/18/2025 9:30 AM EST Office Visit [facility] [address] [place] [address] Susanna Carranza PA-C [address] [place] [address] Next available [facility] CenterComment on above:Next available New patientStart: [id number] B surface antibody levelLDL CholesterolBarnesville Hospitaltart: 03-10-2025 End: 78-79-4253Vkryjnj encounter /25/2025 11:40 AM EST [facility] [address] [place] [address] Aashish Monge PA-C [address] [place] [address] Return in about 3 months (around 03/13/2025).Check out comments:Please schedule follow-up with Aashish Monge PA-C [facility]Comment [facility] above:Return in about 3 months (around 03/13/2025).Check out comments:Please schedule follow-up with Aashish Monge PA-C Start: 12-26-3261Bokrrqlehe A1c yoiwqpgyzqcVzF1JCeqmxfdkb ClinicStart: 85-28-4054DK Controlled (<130/80)BP Controlled (<130/80)[facility]25 End: 01-35-6065Wdpskpm encounter /30/2025 12:30 PM EDT Office Visit OPHT Ophthalmology [address] [place] [address] Ulisses Kauffman MD [address] [place] [address] Diagnostics, [facility] [address] [address] retina consultOphthalmologyComment on above:retina consultStart: 86-05-0345NZ Controlled (<130/80)BP Controlled (<130/80)[facility] 01-28[facility]2025 End: 49-74-7690Aqrtqxjcs to same day surgery dyxzwa1001/28/2025 9:40 AM EDT - 01/28/2025 10:15 AM EDT Surgery Ambulatory Surgery [address] [place] [address] Astrid Nava MD [address] [facility] [place] [address] PHACOEMULSIFICATION CATARACT ANTERIOR IMPLANT INTRAOCULAR LENS W/O ENDOSCOPIC CYCLOPHOTOCOAGULATION Ambulatory SurgeryComment on above:PHACOEMULSIFICATION CATARACT ANTERIOR IMPLANT INTRAOCULAR LENS W/O ENDOSCOPIC CYCLOPHOTOCOAGULATIONStart: 01-28-2025 End: 95-80-3044Det bmtry prtl coher intrfrmtry io lens pwr calOPHTHALMIC BIOMETRY BY PARTIAL COHERENCE INTERFEROMETRY W/INTRAOCULAR LENS POWER CALCULATION Combined forms of age-related cataract of left eye 01/28/2025 9:40 AM EDTMC [facility]AINStart: 96-66-1386Oslqouvbed hospital visit by physician 01/28/2025 9:40 AM EDT Hospital Encounter Ambulatory Surgery [address] [place] [address] Astrid Nava MD [address] [facility] [address] Combined forms of age- related cataract of left eye [H25.812]Ambulatory SurgeryComment on above: Combined forms of age-related cataract of left eye [H25.812]Start: 01-28-2025 End: 86-79-5982Qzdgub ctrc rmvl insj io lens prosth w/o ecpPHACOEMULSIFICATION CATARACT ANTERIOR IMPLANT INTRAOCULAR LENS W/O ENDOSCOPIC CYCLOPHOTOCOAGULATION Combined forms of age-related cataract of left eye 01/28/2025 9:40 AM [facility]Start: 01-14-2025 End: 79-95-4261Rvwvenlgk to same day surgery gdedoc4901/14/2025 12:55 PM EDT - 01/14/2025 1:30 PM EDT Surgery Ambulatory Surgery [address] [facility] [place] [address] Astrid Nava MD [address] [facility] [place] [address] PHACOEMULSIFICATION CATARACT IMPLANT INTRAOCULAR LENS W/O ENDOSCOPICCYCLOPHOTOCOAGULATIONAmbulatory Surgery Comment on above:PHACOEMULSIFICATION CATARACT IMPLANT INTRAOCULAR LENS W/O ENDOSCOPIC CYCLOPHOTOCOAGULATIONStart: 01-14-2025 End: 08-98-7010Xjn bmtry prtl coher intrfrmtry io lens pwr calOPHTHALMIC BIOMETRY BY PARTIAL COHERENCE INTERFEROMETRY W/INTRAOCULAR LENS POWER CALCULATION Combined forms of age-related cataract of right eye 01/14/2025 12:55 PM [facility]AINStart: 21-48-5482Yogpjlwceo hospital visit by physician 01/14/2025 12:55 PM EDT Hospital Encounter Ambulatory Surgery [address] [place] [address] Astrid Nava MD [address] [facility] [place] [address] 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 [H25.811]Ambulatory SurgeryComment on above: Combined forms of age-related cataract of right eye [H25.811]Start: 01-14-2025 End: 14-60-8689Xizktw ctrc rmvl insj io lens prosth w/o ecpPHACOEMULSIFICATION CATARACT IMPLANT INTRAOCULAR LENS W/O ENDOSCOPIC CYCLOPHOTOCOAGULATION Combined forms of age-related cataract of right eye 01/14/2025 12:55 PM [facility] [place] Start: 54-14-0555QY Controlled (<130/80)BP Controlled (<130/80)[facility] Start: 01-06-2025 End: 87-64-0452Ctbiose encounter /23/2025 3:00 PM EDT Office Visit OPHT Ophthalmology [address] [place] [address] CATARACT SURGERY RIGHT THEN LEFT MORLEYOphthalmologyComment on above:CATARACT SURGERY RIGHT THEN LEFT MORLEYStart: 01-06-2025 End: 58-44-8442Fvbxfxtbh to same day surgery ocrsob9301/06/2025 2:20 PM EDT PAT Pre Anesthesia [address] [place] [address] 1, Pacc [place] [address] [place] [address] CATARACT SURGERY RIGHT THENLEFT MORLEYPre AnesthesiaComment on above:CATARACT SURGERY RIGHT THEN LEFT MORLEYStart: 12-26-2024 End: 76-14-1401Volhkhr encounter oogredwpz49/12/2025 2:30 PM EDT [facility] [address] [place] [address] Noel Daniels MD [address] [place] [address] B[facility]OXRehab [facility] FHCComment on above:BOTOXStart: 12-23-2024 End: 93-50-2904Fvzcpmt encounter uqahirmyu11/09/2025 2:30 PM EDT Office Visit OPHT Ophthalmology [address] [place] [address] Astrid Nava MD [address] [place] [address] CAT EVAL (referral scanned)OphthalmologyComment on above:CAT EVAL (referral scanned)Start: 85-21-4906HJ Controlled (<130/80)BP Controlled (<130/80)[facility]: 12-16-2024 End: 90-14-5402Xediknt encounter dcjvjklal54/02/2025 1:45 PM EDT Office Visit [facility] [address] [place] [address] Noel Daniels MD [address] [place] [address] BOTOXRehab [facility] FHCComment on above:BOTOXStart: 26-14-4002Rnmfwkwon vaccinationThe [facility] Start: 12-11-2024 End: 37-07-8160Xylrfgv encounter procedureRadiologyComment on above:Left femur XRPost op Left femur Sx 08/23/24XR FEMUR GENERAL 2V AP/LAT LEFT[xr then room] Start: 12-04-2024 End: 14-93-6265wnzxbwudiv48/21/2025 5:00 PM EDT [facility] Health Neurology [facility] [address] [place] [address] Ani Centeno PA-C [address] [place], [place] [id number] Talk about spasticityNeurology [facility] Hospitalomment on above:Talk about spasticityStart: 50-56-6497YG Controlled (<130/80)BP Controlled (<130/80)[facility]: 75-50-7829XN Controlled (<130/80)BP Controlled (<130/80)[facility]: 11-11-2024 End: 20-47-6179Stlhusc encounter iqsazvsdm64/29/2025 2:30 PM EDT Office Visit Rehab Medicine [facility] [address] [place] [address] Noel Daniels MD [address] [place] [address] BOTOXRehab [facility] DentonCComment on above:BOTOXStart: 12-42-5447SF Controlled (<130/80)BP Controlled (<130/80)[facility]: 10-29-2024 End: 14-71-3550Okvhuou encounter rlizlvrur77/16/2025 10:30 AM EDT Office Visit Infectious Disease [address] [place] [address] Jamie Mccarty MD [address] [id number] fungal meningitis follow upInfectious DiseaseComment on above:fungal meningitis follow upStart: 10-28-2024 End: 63-90-6211Pcxtvzc encounter /15/2025 1:45 PM EDT Office Visit Rehab Medicine [facility] [address] [place] [address] Noel Daniels MD [address] [place] [address] botoxRehab Medicine [facility] Joseph Hospitalomment on above:botoxStart: 10-22-2024 End: 78-42-7133Rsgknru encounter ysjxiylsc89/09/2025 3:00 PM EDT Office Visit [facility] [place] [address] [address] [phone] Bianca Little PA-C [address] [place] [phone] Cervical stenosis of spinal canal [M48.02][facility] Comment on above:Cervical stenosis of spinal canal [M48.02]Start: 10-15-2024 End: 08-72-7701Hscloa-up /02/2025 12:20 PM EDT [facility] [address] [address] Peterson Gonsalez MD [address] [place] [address] Follow-upUrologyComment on above:Follow-upStart: 10-14-2024 End: 66-85-6967Bphcklr encounter procedureRadiologyComment on above:Left femur XRPost op Left femur Sx 08/23/24[XR prior] Post op Left femur Sx 08/23/24Start: 10-09-2024 End: 99-01-4158Kiqbbrb encounter procedureRadiologyComment on above:Other hydrocephalus (HCC) [G91.8]CT Follow upClosed fracture of distal end of left femur, unspecified fracture morphology, initial encounter ([facility]) [S72.402A]Start: 83-69-9235MD Controlled (<130/80)BP Controlled (<130/80)[facility]: 09-23-2024 End: 05-17-6352Hgbfws-up vjnovtiwp95/10/2025 8:00 AM EDT [facility] [address] [address] Peterson Gonsalez MD [address] [place] [address] Follow-up UrologyComment on above:Follow-upStart: 34-48-1174RU Controlled (<130/80)BP Controlled (<130/80)[facility]: 09-17-2024 End: 48-89-0887Ifgjmrl encounter czcmeaeef32/04/2025 9:30 AM EDT Office Visit Infectious Disease [address] [place] [address] Jamie Mccarty MD [address] [place] [address] fungal meningitis follow upInfectious DiseaseComment on above:fungal meningitis follow upStart: 09-16-2024 End: 29-82-7324jpydoomdlo57/03/2025 10:45 AM EDT Results Only [facility] Q2-1 [place] [address] [address] [facility] Q2- 1 Draw StationComment on above:LabsStart: 09-16-2024 End: 66-23-8881Getkirb encounter procedureRadiologyComment on above:CTU - CT Chest LM to confirm that CT scans have been [facility] from [facility] to [facility]-U & CT chest & labs- need new orders. Orders will be more than 1 year old day of scanStart: 09-11-2024 End: 06-44-7992Ihcup metabolic 2000 panel - Serum or PlasmaBASIC METABOLIC PANEL Lab Routine History of bladder cancer Expected: 09/11/2024 (Approximate), Expi res: 12/11/2024leveland ClinicComment on above:Expected: 09/11/2024 (Approximate), Expires: 12/11/2024Start: 09-11-2024 End: 30-71-2127Wdocgnibn (Vitamin B12) [Mass/volume] in Serum or PlasmaVITAMIN B12 Lab Routine History of bladder cancer Expected: 09/11/2024 (Approximate), Expires: 12/11/2024[facility] ClinicComment on above:Expected: 09/11/2024 (Approximate), Expires: 12/11/2024Start: 09-11-2024 End: 66-64-2958WUGKHSEXLD BLDCREATININE BLD Lab Routine History of bladder cancer Expected: 09/11/2024 (Approximate), Expires: 12/11/2024[facility] Comment on above:Expected: 09/11/2024 (Approximate), Expires: 12/11/2024Start: 09-11-2024 End: 28-03-8408DH Chest W contrast IVCT CHEST W IVCON Radiology Routine History of bladder cancer Expected: 09/11/2024 (Approximate), Expires: 10/11/2024 [facility] System[facility] on [facility]:Expected: 09/11/2024 (Approximate), Expires: 10/11/2024Start: 09-11-2024 End: 49-32-2127VR Kidney WO and W contrast IVCT UROGRAM WO/W IVCON Radiology Routine History of bladder cancer Expected: 09/11/2024 (Approximate), Expires: 10/11/2024[facility] ClinicComment on above:Expected: 09/11/2024 (Approximate), Expires: 10/11/2024Start: 09-11-2024 End: 05-45-1955LD Kidney - bilateral and Urinary bladderUS KIDNEY/BLADDER Radiology Routine History of bladder cancer Expected: 09/11/2024 (Approximate), Expires: 10/11/2024[facility] Work Phone: comment on above:Expected: 09/11/2024 (Approximate), Expires: 10/11/2024Start: 09-11-2024 End: 48-26-5195Cqhmzxw evaluation of patient and vggung4809/11/2024 9:30 AM EDT Nurse Visit Orthopaedics [place] [address] [place] [address] [place] [address] [place] [address] Post op Left femur Sx 08/23/24[facility]Comment [facility]:Post op Left femur Sx 08/23/24Start: 09-11-2024 End: 49-95-6345Gdagkot encounter gbedonzox95/29/2025 8:20 AM EDT Appointment Radiology [address] [place] [address] Left femur XRRadiologyComment on above:Left femur XRStart: 09-09-2024 End: 77-94-3908Lxmanws encounter procedureOphthalmologyComment on above:cataract eval (referral scanned)Start: 09-03-2024 End: 65-45-1099Ibeyaxk encounter noherdcvg76/21/2025 2:40 PM EDT Office Visit Endocrinology [address] [facility] [place] [address] Ruddy Gupta MD [address] [place] [address] 6 month follow upEndocrinologyComment on above:6 month follow upStart: 99-24-7844Xxvhujrsog A1c oocconwffqpAkH0SIhicchjim ClinicStart: 08-01-2024 End: 90-60-2224Oupemoh encounter eknricqvg38/18/2025 9:00 AM EDT Office Visit [facility] [address] [place] [address] Marlene Cordero PA-C [address] [place] [address] Shunt change per Winter Cordero okay to double book Neurological RestorationComment on above:Shunt change per Winter Cordero okay to double bookStart: 07-31-2024 End: 62-19-7111Tjgtbka encounter cofxfmnmp56/17/2025 1:45 PM EDT Appointment Radiology Pet CT [address] [place] [address] [place] [address] CT Brain Radiology Pet CTComment on above:CT BrainStart: 77-28-4233Ehgub cultureSumma Health Wadsworth - [facility]man [facility] CenterStart: 68-02-2337Msdkuwlu identified in Urine by Culture Urine [facility]: 07-28-2024 End: 60-47-8829Exptts-up bemkjciww32/14/2025 1:00 PM EDT Distance Health [facility] [address] [place], [place] [phone] Reggie Butler MD [address] [place] [address] follow upNeurological RestorationComment on above:follow upStart: 07-22-2024 End: 41-18-8013Izlbmpj encounter acudglsxt32/08/2025 3:15 PM EDT Office Visit Rehab [facility] [address] [place] [address] Noel Daniels MD [address] [place] [address] BOTOXRehab [facility] FHCComment on above:BOTOXStart: 07-15-2024 End: 16-51-7912Sqduzpr encounter mxumzajbd87/01/2025 2:30 PM EDT Office Visit Rehab [facility] [address] [place] [address] Noel Daniels MD [address] [place] [address] BotoxSaint [facility] Hospital[facility] FHCComment on above:BotoxStart: 41-60-0227Xxppqsitxb measurementMetroHealth Start: 88-91-9459Tlroikyruf measurementBasic Metabolic PanelTHE METROHEALTH SYSTEMStart: 07-02-2024 End: 81-69-1277Opouqfq encounter jdpdfifyb07/19/2025 9:30 AM EDT Office Visit Infectious Disease [address] [place] [address] Jamie Mccarty MD [address] [place] [address] fungal meningitisInfectious DiseaseComment on above:fungal meningitisStart: 07-01-2024 End: 32-48-7268Fgjkuzu encounter esggvnjwp98/18/2025 4:00 PM EDT Office Visit Endocrinology [address] [place] [address] Katiana Huang APRN.STABLE HELPER [address] [place] [address] 3 month follow upEndocrinologyComment on above:3 month follow upStart: 06-18-2024 End: 59-53-6088Ubjwgih encounter clwuqwwvh21/05/2025 1:00 PM EST Office Visit Infectious Disease [address] [place] [address] Jamie Mccarty MD [address] [place] [address] fungal meningitisInfectious DiseaseComment on above:fungal meningitisStart: 05-29-2024 End: 03-89-9503Ojrwuqu encounter viiwcszot28/13/2025 1:00 PM EST Office Visit Cardiology 5700 [facility] [place] [address] Ruthy Jesus MD [address] [facility] [place] [address] Transfering Care from a Account Group Supervisor in [place] for PalpitationsCardiologyComment on above:Transfering Care from a Account Group Supervisor in [place] for PalpitationsStart: 67-73-5622HX Controlled (<130/80)BP Controlled (<130/80)[facility]: 04-24-2024 End: 66-70-7182QEHVJWDPHV PROT UR W/INTERPMONOCLONAL PROT UR W/INTERP Lab Routine Disturbance of skin sensation Expected: 04/24/2024, Expires: 07/24/2024 [facility] Work Phone: Comment on above:Expected: 04/24/2024, Expires: 07/24/2024Start: 04-22-2024 End: 41-67-3267Glhboju encounter vzxtefjck30/07/2025 1:45 PM EST [facility] [address] [place] [address] Noel Daniels MD [address] [place] [address] NERVE BLOCK - OK per providerShannon Medical Center SouthCComment on above:NERVE BLOCK - OK per provider Start: 01-01-2025Medicare Advantage Annual Wellness VisitMedicare Advantage Annual Wellness VisitBarnesville Hospitaltart: 04-15-2024 End: 57-99-9381Urepzam encounter upkoxzhwy85/31/2024 11:45 AM EST [facility] [address] [place] [address] Noel Daniels MD [address] [place] [address] BotoxShannon Medical Center SouthCComment on above:BotoxStart: 04-10-2024 End: 38-58-2510Yjruaye encounter procedureRadiologyComment on above:Other hydrocephalusStart: 89-99-9298Lohevdidoe A1c oxhdwthloqjPgH6GSasfofypp Clinic Start: 03-21-2024 End: 80-17-2602Sufqwid encounter gsftxgpxe19/06/2024 11:00 AM EST Office Visit [facility] [address] [place] [address] Reggie Butler MD [address] [place] [address] Follow upNeurological RestorationComment on above:Follow up Start: 03-18-2024 End: 07-75-3780Rpjbrfzrfalvst [Moles/volume] in Serum or PlasmaSt. Mary'[facility] Work Phone: Comment on above:Expected: 03/18/2024, Expires: 06/17/2024Start: 03-18-2024 End: 45-63-6443IBQXBFBJYJ PROT UR W/INTERPCregency hospital toledo ClinicComment on above: Expected: 03/18/2024, Expires: 06/17/2024Start: 03-18-2024 End: 29-10-3415SQHTZQMVWY PROTEIN, SERUM (BLOOD)[facility] SystemComment on above:Expected: 03/18/2024, Expires: 06/17/2024Start: 03-18-2024 End: 75-14-6905Rgijoba encounter zkmqgtcyk50/03/2024 9:00 AM EST Office Visit Neurology [address] [place] [address] [place] [address] [place] [address] SpasticityNeurologyComment on above:SpasticityStart: 02-14-2024 End: 43-22-6002Ayvxewv encounter vjrwsrqat05/31/2024 6:00 PM EDT Appointment [facility] [place] [facility] Scan [address] [place] [address] Other hydrocephalus (HCC) [G91.8][facility] Radiology CT Scan Comment on above:Other hydrocephalus (HCC) [G91.8]Start: 02-13-2024 End: 87-40-5483Klcgaxd encounter procedureNeurological RestorationComment on above:added per Marlene BaxterermanStart: 02-11-2024 End: 02-68-8860Ksujqp-up wlaepifaj34/28/2024 3:30 PM EDT [facility] [address] [id number] Noel Daniels MD [address] [place] [address] Follow up from injecPHYSICAL MEDICINE & REHABComment on above:Follow up from injecStart: 02-11-2024 End: 47-15-4237Duygkfb encounter cbpjxmsme74/28/2024 9:00 AM EDT Office Visit [facility] [address] [facility] [facility] [place] [address] Darien Strickland PA-C [address] [place] [address] Follow up / Increase muscle spasmsNeurological Advent Comment on above:Follow up / Increase muscle spasmsStart: 02-06-2024 End: 89-53-7605XPW PHOS ISOENZYM BLALK PHOS ISOENZYM BL Lab Routine 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) Elevated alkalinephosphatase level Expected: 02/06/2024, Expires: 05/07/2024[facility] Work Phone: Comment on above:Expected: 02/06/2024, Expires: 05/07/2024Start: 02-06-2024 End: 28-97-0074Cuielbeizlfht metabolic 2000 panel - Serum or PlasmaCOMPREHENSIVE METABOLIC PANEL Lab Routine 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) Expected: 02/06/2024, Expires: 05/07/2024leveland ClinicComment on above: Expected: 02/06/2024, Expires: 05/07/2024Start: 02-06-2024 End: 67-80-9950Hjzpc 1996 panel - Serum or PlasmaLIPID PANEL BASIC Lab Routine 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) Expected: 02/06/2024, Expires: 05/07/2024[facility] ClinicComment on above:Expected: 02/06/2024, Expires: 05/07/2024Start: 02-06-2024 End: 42-98-3222UMTVANYABYNK, SERUMPOSACONAZOLE, SERUM Lab Routine Fungal meningitis Expected: 02/06/2024, Expires: 05/07/2024[facility] Work Phone: comment on above:Expected: 02/06/2024, Expires: 05/07/2024Start: 02-06-2024 End: 92-96-3301Pbwqrnhjavx [Units/volume] in Serum or PlasmaTHYROID STIMULATING HORMONE Lab Routine 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) Expected: 1 , Expires: 05/07/2024[facility] ClinicComment on above:Expected: 02/06/2024, Expires: 05/07/2024Start: 02-06-2024 End: 81-19-2309Kqbuvvk encounter vzrigpiza12/23/2024 11:00 AM EDT Office Visit Endocrinology [address] [place] [address] Ruddy Gupta MD [address] [place], [place] [address] hospital discharge follow up; diabetesEndocrinologyComment on above: hospital discharge follow up; diabetesStart: 01-31-2024 End: 38-82-8430gegunpfwbq31/17/2024 9:30 AM EDT Mobile Visit Wound Ostomy [address] [place] [address] Sharan Dominguez, PROCUREMENT DIRECTOR.STABLE HELPER [address] [place] [address] Wound assessment [facility] OstomyComment on above:Wound assessment Carine OaksStart: 63-32-9939Abmudblbv vaccinationInfluenza Vaccine (#1)[facility] Start: 01-11-2024 End: 19-03-7873Sxvipsx encounter procedureSaint Luke'S Hospitalab [facility] Comment on above:BOTOXPHENOL INJECPHENOLStart: 01-10-2024 End: 41-62-1560Zswwdub encounter /26/2024 3:30 PM EDT Office Visit Infectious Disease [address] [place] [address] Jamie Mccarty MD [address] [place], [place] [id number] fungal DIRECTOR PUBLIC infectionInfectious DiseaseComment on above:fungal DIRECTOR PUBLIC infection Start: 34-31-1468Eehnrjffue A1c measurementMetroHealthStart: 01-10-2024 End: 00-35-6010dypkbxxoyd35/26/2024 12:00 PM EDT Mobile Visit Wound Ostomy [address] [place] [address] Sharan Dominguez APRN.STABLE HELPER [address] [place] [address] Wound assessment Cottonwood OaksWound OstomyComment on above:Wound assessment Carine OaksStart: 01-10-2024 End: 22-37-9043Vtfrmop encounter procedureRadiologyComment on above:RC ECPOST OP 10/08/23 - LEFT TIBIAOther hydrocephalus (HCC) [G91.8]Follow upStart: 01-09-2024 End: 20-72-3463Rcmkifl encounter xlwesmyas45/25/2024 10:00 AM EDT Office Visit Infectious Disease [address] [place] [address] Jamie Mccarty MD [address] [place] [address] fungal DIRECTOR PUBLIC infectionInfectious DiseaseComment on above:fungal DIRECTOR PUBLIC infectionStart: 01-03-2024 End: 46-29-7171rtbdggoyof76/19/2024 1:00 PM EDT Mobile Visit Wound Ostomy [address] [place] [address] Sharan Dominguez APRN.STABLE HELPER [address] [place] [address] Wound assessment Carine OaksWound OstomyComment on above:Wound assessment Cottonwood OaksStart: 12-21-2023 End: 18-23-5590Oralmtn encounter /06/2024 9:00 AM EDT Office Visit [facility] [address] [place] [address] Reggie Butler MD [address] [place] [address] Other hydrocephalus (HCC) [G91.8][facility] Comment on above:Other hydrocephalus (HCC) [G91.8]Start: 12-20-2023 End: 12-93-4142czcxrszdis94/05/2024 1:00 PM EDT Mobile Visit Wound Ostomy [address] [place] [address] Sharan Dominguez, PROCUREMENT DIRECTOR.STABLE HELPER [address] [place] [address] [address] [place] [address] Wound assessment Carine OaksWound OstomyComment on above:Wound assessment [facility] Centerrt: 29-01-5795Xtmbc-19 Vaccine ( season)Covid-19 Vaccine ( season)[facility]: 14-81-0093Arlle-19 Vaccine ( season)Covid-19 Vaccine ( season)[facility]: 12-16-2023 Influenza vaccinationInfluenza Vaccine (#1)[facility]: 12-13-2023 End: 47-14-0660lifyzfunig01/29/2024 12:30 PM EDT Mobile Visit Wound Ostomy [address] [place] [address] Sharan Dominguez, PROCUREMENT DIRECTOR.STABLE HELPER [address] [place] [address] [address] [place] [address] Wound assessment Carine OaksWound OstomyComment on above:Wound assessment Cottonwood OaksStart: 12-05-2023 End: 46-80-9484hcbaxigomb75/21/2024 11:00 AM EDT Mobile Visit Wound Ostomy [address] [place] [address] Sharan Dominguez, PROCUREMENT DIRECTOR.STABLE HELPER [address] [place] [address] Wound assessment Cottonwood OaksWound OstomyComment on above:Wound assessment Cottonwood OaksStart: 12-04-2023 End: 82-08-4395Cqvgskj encounter bchiigkmn25/20/2024 11:00 AM EDT Office Visit Rehab Medicine [facility] [address] [place] [address] Noel Daniels MD [address] [place] [address] New evalRehab Medicine [place] FHCComment on above:New evalStart: 11-29-2023 End: 12-90-3480Pldechn encounter procedureRadiologyComment on above:Other hydrocephalus (HCC) [G91.8]Follow upStart: 11-27-2023 End: 92-54-9549Dgwfawl encounter procedureRadiologyComment on above:XR TIBIA FIBULA 2V AP/LAT LEFTPOST OP 10/08/23 - LEFT TIBIAStart: 11-22-2023 End: 41-00-0449Ourpiqc encounter procedureRadiologyComment on above:Other hydrocephalus (HCC) [G91.8]Ct follow upStart: 11-22-2023 End: 34-65-5436yzgckunxvc20/08/2024 12:00 PM EDT Mobile Visit Wound Ostomy [address] [place] [address] Sharan Dominguez APRN.STABLE HELPER [address] [place] [address] Wound assessment Carine Bryonound OstomyComment on above:Wound assessment Cottonwood OaksStart: 11-20-2023 End: 77-35-5173Dticvljal to same day surgery gcmsum5811/20/2023 11:30 AM EDT - 11/20/2023 3:00 PM EDT Surgery Admitting [address] [place] [address] Con Oconnor MD [address] [place] [address] IMPLANT SHUNT VENTRICULOPERITONEALAdmittingComment on above: IMPLANT SHUNT VENTRICULOPERITONEALStart: 11-20-2023 End: 03-79-8309Jiqq shunt unhkvgjdhi-tdwvwrffi-wsrodow terminusIMPLANT SHUNT VENTRICULOPERITONEAL Communicating hydrocephalus (HCC) 11/20/2023 11:30 [facility]ILIONStart: 11-20-2023 End: 48-60-4706Ndcd insertion tunneled intraperitoneal catheterLAPAROSCOPIC INSERTION OF INTRAPERITONEAL CANNULA OR CATHETER, PERMANENT Communicating hydrocephalus (HCC) 11/20/2023 11:30 AM [facility] PAVILIONStart: 11-20-2023 Subsequent hospital visit by physicianAdmittingComment on above: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]Start: 11-19-2023 End: 46-70-8887Datbtlo encounter procedureNeurological RestorationComment on above:fiducial placementpre op brain localization SURG planningStart: 11-16-2023 End: 80-30-9844Wqxstno encounter procedureInfectious DiseaseComment on above: Fungal Meningitis Follow UpStart: 11-15-2023 End: 09-29-4933murfqofiye03/01/2024 2:30 PM EDT Mobile Visit Wound Ostomy [address] [place] [address] Sharan Dominguez APRN.STABLE HELPER [address] [place] [address] Wound assessment Cottonwood OaksWound OstomyComment on above:Wound assessment Carine OaksStart: 11-13-2023 End: 92-63-0733Dkxntuy encounter cqcfjpxey06/30/2024 2:30 PM EDT Office Visit [facility] [address] [place], [place] [phone] Aashish Monge PA-C [address] [place] [address] Follow Up- Left KneeOrthopaedics [facility]walk memorial hospitalComment on above:Follow Up- Left KneeStart: 11-13-2023 End: 85-82-6909Rocnpii encounter ctrizlzos30/30/2024 1:20 PM EDT Appointment Radiology [address] [place] [address] left Knee XRRadiologyComment on above:left Knee XRStart: 11-09-2023 End: 86-66-7870Fdurlqz encounter acmoyesbk21/26/2024 1:15 PM EDT Office Visit Endocrinology [address] [place] [address] Katiana Huang, PROCUREMENT DIRECTOR.STABLE HELPER [address] [place] [address] hospital discharge follow up; diabetesEndocrinologyComment on above:hospital discharge follow up; diabetesStart: 11-07-2023 End: 89-51-4470Zfiivcl encounter fjorxuhpi28/24/2024 1:45 PM EDT Office Visit Endocrinology [address] [place] [address] Katiana Huang, PROCUREMENT DIRECTOR.STABLE HELPER [address] [place] [address] hospital discharge follow up; diabetesEndocrinologyComment on above:hospital discharge follow up; diabetesStart: 10-31-2023 End: 00-50-8880syaiethzlqBuuwdleogcRwhnmvv on above:pre op ekgpre opStart: 10-31-2023 End: 85-04-3159Xghvpmm encounter yfluuxijp69/17/2024 12:30 PM EDT Office Visit [facility] [address] [place] [address] Marlene Cordero PA-C [address] [place] [address] CT Follow UpNeurological RestorationComment on above: CT Follow UpStart: 10-31-2023 End: 14-50-4876Jmledwwcsu vcdtacexppvv84/17/2024 11:20 AM EDT PAT Pre Anesthesia [address] [place] [address] 9, [address] [place] [address] pre opPre AnesthesiaComment on above:pre opStart: 10-31-2023 End: 52-92-6064Xhzmpvg encounter procedureMRI QComment on above: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]preopStart: 10-31-2023 End: 89-84-1949Nrlbplr encounter msdriixey52/17/2024 8:30 AM EDT Office Visit [facility] [address] [place] [address] Con Oconnor MD [address] [place] [address] pre op per CalebNeurological RestorationComment on above:pre op per CalebStart: 10-31-2023 End: 97-40-4148Tvttyrp encounter procedureNeurological RestorationComment on above:Movement Disorders and DBSeducation per CalebStart: 10-25-2023 End: 35-92-1180Hkgwlgi evaluation of patient and fcknqz3310/25/2023 1:00 PM EDT Nurse Visit [facility] [address] [place] [address] [place] [address] [place] [address] POST OP 10/08/23 - LEFT TIBIAOrthopaedics White HallComment on above:POST OP 10/08/23 - LEFT TIBIAStart: 10-25-2023 End: 66-05-0181Hsqcrwx encounter asrfpdqsr99/11/2024 11:40 AM EDT Appointment Radiology [address] [place] [address] XR TIBIA FIBULA 2V AP/LAT LEFT RadiologyComment on above:XR TIBIA FIBULA 2V AP/LAT LEFTStart: 10-23-2023 End: 40-68-2307Oehfutw encounter jbqdekuez12/09/2024 12:40 PM EDT Appointment Radiology [address] [place] [address] Rrxfajuabqciu, adult (HCC) [G91.9]RadiologyComment on above:Hydrocephalus, adult (HCC) [G91.9] Start: 10-11-2023 End: 48-46-6080Efioxqo encounter procedureRadiology Pet CTComment on above:ct brain wolabsStart: 10-04-2023 End: 01-03-2024 reactive protein [Mass/volume] in Serum or PlasmaC-REACTIVE PROTEIN Lab Routine Fungal meningitis Expected: 10/04/2023, Expires: 01/03/2024 [facility] SystemComment on above:Expected: 10/04/2023, Expires: 01/03/2024Start: 10-04-2023 End: 65-80-2834QAE W Auto Differential panel - BloodCOMPLETE BLOOD COUNT AND DIFFERENTIAL Lab Routine Fungal meningitis Expected: 10/04/2023, Expires: 0 01/03/2024leveland ClinicComment on above:Expected: 10/04/2023, Expires: 01/03/2024Start: 10-04-2023 End: 80-92-5930Gacntrogyovky metabolic 2000 panel - Serum or PlasmaCOMPREHENSIVE METABOLIC PANEL Lab Routine Fungal meningitis Expected: 10/04/2023, Expires: 01/03/2024[facility] ClinicComment on above:Expected: 10/04/2023, Expires: 01/03/2024Start: 10-04-2023 End: 41-56-8375Owxebqbzs [Mass/volume] in Serum or PlasmaMAGNESIUM Lab Routine Fungal meningitis Expected: 10/04/2023, Expires: 01/03/2024[facility] Comment on above:Expected: 10/04/2023, Expires: 01/03/2024Start: 10-04-2023 End: 52-94-7004Muahdijmi [Mass/volume] in Serum or PlasmaPHOSPHORUS INORGANIC Lab Routine Fungal meningitis Expected: 10/04/2023, Expires: 01/03/2024[facility] ClinicComment on above:Expected: 10/04/2023, Expires: 01/03/2024Start: 10-04-2023 End: 36-05-4347BEAOLLEFPKEL, SERUMPOSACONAZOLE, SERUM Lab Routine Fungal meningitis Expected: 10/04/2023, Expires: 01/03/2024[facility] Work Phone: comment on above:Expected: 10/04/2023, Expires: 01/03/2024Start: 10-04-2023 End: 30-32-0664vzpzkmkbgs69/20/2024 1:00 PM EDT [facility] [address] [place], [place] [phone] Marlene Cordero PA-C [address] [place] [address] wound checkNeurological RestorationComment on above:wound checkStart: 10-04-2023 End: 37-01-7234Hrnnizy encounter yiltpfsog10/20/2024 1:00 PM EDT Office Visit [facility] [address] [place] [address] Marlene Cordero PA-C [address] [place] [address] wound checkNeurological RestorationComment on above: wound checkStart: 10-02-2023 End: 31-78-1762Rcbfuyu encounter crpoouhdc36/18/2024 1:30 PM EDT Appointment [facility] Radiology Ultrasound [address] [place] [address] [facility] Radiology UltrasoundComment on above:KUBStart: 10-01-2023 End: 36-20-0829Vbbxatk encounter tndjjqrop81/17/2024 1:30 PM EDT Office Visit [facility] Neurosurgery [address] [place] [address] Daniel Figueroa MD [address] [facility] [place] [address] [facility] NeurosurgeryStart: 11-90-6087QE CONTROLLED (<130/80)BP CONTROLLED (<130/80)[facility]: 09-19-2023 End: 24-89-2213Dlrdn metabolic 2000 panel - Serum or PlasmaBASIC METABOLIC PANEL Lab Routine History of bladder cancer Expected: 09/19/2023 (Approximate), Expi res: 12/19/2023[facility] Work Phone: comment on above:Expected: 09/19/2023 (Approximate), Expires: 12/19/2023Start: 84-29-6101Qdrdxhkozd A1c measurementThe [facility]health System Start: 09-18-2023 End: 99-15-5222Jncojby encounter butmtbegz39/04/2024 8:00 AM EDT Office Visit [facility] [address] [place] [address] Tonie Rosado MD [address] [address] Movement Disorders and DBSNeurological Advent Comment on above:Movement Disorders and DBSStart: 09-13-2023 End: 72-37-0815Laxxvuo encounter ijwcotudh82/30/2024 2:15 PM EDT Appointment Radiology Pet CT [address] [place] [address] [place] [address] ct brain wo Radiology Pet CTComment on above:ct brain woStart: 09-12-2023 End: 79-63-2187Tywivks encounter mugbfevhe75/29/2024 1:00 PM EDT Office Visit Urology [address] [address] Peterson Gonsalez MD [address] [place] [address] 6MO with CTUrologyComment on above:6MO with CTStart: 09-12-2023 End: 31-13-6227Ffdzqvk evaluation of patient and irjbqc7709/12/2023 8:15 AM EDT Nurse Visit Colorectal Surgery [address] [address] Therapy, [address] [place] [address] updated supply formColorectal SurgeryComment on above:updated supply formStart: 09-06-2023 End: 96-45-5583jRVU in Platelet poor plasma by Coagulation assayACTIVATED PARTIAL THROMBOPLASTIN TIME Lab Routine Screening for condition Expected: 09/06/2023, Expires: 12/06/2023[facility] Work Phone: comment on above:Expected: 09/06/2023, Expires: 12/06/2023Start: 09-06-2023 End: 53-45-3434Zraka metabolic 2000 panel - Serum or PlasmaBASIC METABOLIC PANEL Lab Routine Communicating hydrocephalus (HCC) Expected: 09/06/2023, Expires: 0 12/06/2023[facility] ClinicComment on above:Expected: 09/06/2023, Expires: 12/06/2023Start: 09-06-2023 End: 00-94-7234ZXD W Auto Differential panel - BloodCOMPLETE BLOOD COUNT AND DIFFERENTIAL Lab Routine Communicating hydrocephalus (HCC) Expected: 09/06/2023, Expires: 12/06/2023[facility] CenterComment on above:Expected: 09/06/2023, Expires: 12/06/2023Start: 09-06-2023 End: 98-30-4205JVOHKUE BLOOD TYPECONFIRM BLOOD TYPE Blood Bank Routine Communicating hydrocephalus (HCC) Expected: 09/06/2023, Expires: 12/06/2023 [facility] SystemComment on above:Expected: 09/06/2023, Expires: 12/06/2023Start: 09-06-2023 End: 48-55-4934WF panel - Platelet poor plasma by Coagulation assayPROTHROMBIN TIME Lab Routine Screening for condition Expected: 09/06/2023, Expires: 12/06/2023[facility] ClinicComment on above:Expected: 09/06/2023, Expires: 12/06/2023Start: 09-06-2023 End: 58-37-5667BBYRTEISJBOHBL AUREUS & MRSA SCREEN, PCR, NASALSTAPHYLOCOCCUS AUREUS & MRSA SCREEN, PCR, NASAL Lab Routine Communicating hydrocephalus (HCC) Expected: 09/06/2023, Expires: 12/06/2023leveland ClinicComment on above: Expected: 09/06/2023, Expires: 12/06/2023Start: 09-06-2023 End: 87-00-9379DIZV AND SCREEN,30 DAYTYPE AND SCREEN,30 DAY Blood Bank Routine Communicating hydrocephalus (HCC) Expected: 09/06/2023, Expires: 12/06/2023 [facility] SystemComment on above:Expected: 09/06/2023, Expires: 12/06/2023Start: 09-06-2023 End: 72-75-6529Glaogetcda complete panel - UrineURINALYSIS WITH MICROSCOPIC, REFLEX CULTURE Lab Routine Communicating hydrocephalus (HCC) Expected: 09/06/2023, Expires: 12/06/2023[facility] ClinicComment on above:Expected: 09/06/2023, Expires: 12/06/2023Start: 08-27-2023 End: 55-98-6901SYDADFXX POWERSHARE IMAGES TO EPICDOWNLOAD POWERSHARE IMAGES TO EPIC Imaging Routine 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) Expected: 08/27/2023, Expires: 08/26/2024[facility] [employer] [facility] Work Phone: Comment on above:Expected: 08/27/2023, Expires: 08/26/2024Start: 08-21-2023 End: 56-02-0819Jvyhqul evaluation of patient and kzyrst2208/21/2023 9:15 AM EDT Nurse Visit Colorectal Surgery [address] [place] [id number] Therapy, [place] [place], [place] [id number] updated supply formColorectal SurgeryComment on above:updated supply formStart: 08-14-2023 End: 39-22-9459Lzicwmk encounter qpmvrreun96/30/2024 2:30 PM EDT Office Visit [facility] [address] [place] [address] Aashish Monge PA-C [address] [place] [address] LEFT KNEE FOLLOW UPOrthopaedics White HallComment on above:LEFT KNEE FOLLOW UPStart: 08-14-2023 End: 66-09-0174Obsoalq encounter jqjtfsita57/30/2024 1:20 PM EDT Appointment Radiology [address] [place] [id number] XR KNEE LIMITED 2V AP/LAT LEFT RadiologyComment on above:XR KNEE LIMITED 2V AP/LAT LEFTStart: 08-09-2023 End: 43-91-4342TU Head WO contrastCT HEAD W/O CONTRAST Imaging Routine 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) Expected: 08/09/2023 (Approximate), Expires: 07/25/2024[facility] [employer] [facility] Work Phone: Comment on above:Expected: 08/09/2023 (Approximate), Expires: 07/25/2024Start: 07-26-2023 End: 05-79-6773bguczjwxwoPxctjFkftse NeurosurgeryStart: 07-26-2023 End: 62-69-7949Zzvmcyw encounter procedureMetroHealth NeurosurgeryStart: 07-18-2023 End: 33-96-2357gfxgtpyipkDcnycIzknbk Acute Care SurgeryStart: 07-18-2023 End: 83-25-2996Jdqbzhg encounter ilnaohxiw50/03/2024 2:45 PM EDT Office Visit [facility] Acute Care Surgery [address] [place], [place] [phone] RojlqNfweuj Acute Care SurgeryStart: 07-10-2023 End: 30-64-4918Db abdomen & pelvis w/o contrst 1/> body reCT UROGRAM WO/W IVCON Radiology Routine History of bladder cancer Expected: 07/10/2023, Expires: [facility] Work Phone: comment on above:Expected: 07/10/2023, Expires: 02/08/2024Start: 07-10-2023 End: 20-24-4541Efnfsxgjco and management of ndmeswool63/26/2024 8:30 AM EDT - 07/10/2023 11:46 AM EDT Surgery [facility] Main OR [address] [place] [phone] Daniel Figueroa MD [address] [place] [address] [place] [address] REVISION, SHUNTMetroHealth Main ORComment on above: REVISION, SHUNTStart: 07-10-2023 End: 30-36-7914LCSEBHAS, SHUNTREVISION, SHUNT Routine scheduled Small bowel obstruction (HCC) 07/10/2023 8:30 AM [employer] [facility] Work Phone: Start: 05-02-2023 End: 58-31-1489Wg abdomen & pelvis w/o contrst 1/> body reCT UROGRAM WO/W IVCON Radiology Routine History of bladder cancer Expected: 05/02/2023, Expires: [facility] Work Phone: comment on above:Expected: 05/02/2023, Expires: 06/01/2023Start: 05-02-2023 End: 88-88-2685WJ CHEST W IVCONCT CHEST W IVCON Radiology Routine History of bladder cancer Expected: 05/02/2023, Expires: 06/01/2023[facility] Work Phone: comment on above:Expected: 05/02/2023, Expires: 06/01/2023Start: 19-60-7716Sihgbcycic AssessmentDepression AssessmentBarnesville Hospitaltart: 01-15-2023 End: 47-62-5263ZEQ W Auto Differential panel - BloodCBC + DIFF Lab Routine Fungal meningitis Expected: 01/15/2023, Expires: 03/17/2023[facility] Work Phone: comment on above:Expected: 01/15/2023, Expires: 03/17/2023Start: 01-15-2023 End: 50-97-0755Mufboawcjrezn metabolic 2000 panel - Serum or PlasmaCOMP METABOLIC PANEL Lab Routine Fungal meningitis Expected: 01/15/2023, Expires: 03/17/2023[facility] Work Phone: comoaks on above:Expected: 01/15/2023, Expires: 03/17/2023Start: 01-15-2023 End: 46-67-5428BKCUTLRWUELH, SERUMPOSACONAZOLE, SERUM Lab Routine Fungal meningitis Expected: 01/15/2023, Expires: 03/17/2023[facility] Work Phone: Comment on above:Expected: 01/15/2023, Expires: 03/17/2023Start: 53-01-4757RCLBN-19 Vaccine ()COVID-19 Vaccine ()[facility] Center[facility]: 58-58-5401Ikqqd-19 Vaccine ()Covid-19 Vaccine ()[facility]: 12-15-2022 Influenza vaccinationBarnesville Hospitaltart: 22-21-6546IYDKETTERING HEALTH [facility] Start: 69-49-2977Xbabiihyty A1c/Hemoglobin.total in TnkozDGS9PAttcisuwh Clinic Start: 10-18-2022 End: 41-79-2210NHC W Auto Differential panel - BloodCBC + DIFF Lab Routine Therapeutic drug monitoring Expected: 10/18/2022, Expires: 12/18/2022[facility] Work Phone: comment on above:Expected: 10/18/2022, Expires: 12/18/2022Start: 10-18-2022 End: 59-10-5834Qdprsechzyhfs metabolic 2000 panel - Serum or PlasmaCOMP METABOLIC PANEL Lab Routine Therapeutic drug monitoring Expected: 10/18/2022, Expires: 12/18/2022[facility] Work Phone: comment on above:Expected: 10/18/2022, Expires: 12/18/2022Start: 10-18-2022 End: 92-99-7641QLBGYIJZMIEO, SERUMPOSACONAZOLE, SERUM Lab Routine Therapeutic drug monitoring Expected: 10/18/2022, Expires: 12/18/2022[facility] Work Phone: comment on above:Expected: 10/18/2022, Expires: 12/18/2022Start: 66-94-1351TjmeoimjfihJMSDSZOOANEMlqnxhyue ClinicStart: 52-87-2378ZUFWHUNWMW CANCER SCREENINGCOLORECTAL CANCER SCREENINGThe [facility] System Start: 27-75-9719Ykcnnsjknw A1c/Hemoglobin.total in OayjiVGE4DVxlrguhsb Clinic Start: 08-18-2022 End: 73-09-0336Ged brain brain stem w/o w/contrast materialMRI BRAIN WO/W IVCON Radiology Routine Cervicalgia Expected: 08/18/2022, Expires: 08/18/2023[facility] Work Phone: comment on above:Expected: 08/18/2022, Expires: 08/18/2023Start: 08-18-2022 End: 54-65-8650Bxq spinal canal thoracic w/o & w/contr matrlMRI THORACIC SPINE WO/W IVCON Radiology Routine Cervicalgia Expected: 08/18/2022, Expires: 08/18/2023[facility] Work Phone: comment on above:Expected: 08/18/2022, Expires: 08/18/2023Start: 08-03-2022 End: 77-22-3074YY BRAIN WO IVCONCT BRAIN WO IVCON Radiology Routine Other hydrocephalus (HCC) Expected: 08/03/2022 (Approximate), Expires: 08/19/2023 [facility] Work Phone: Comment on above:Expected: 08/03/2022 (Approximate), Expires: 08/19/2023Start: 45-82-3835WOKBCEHA SCREENDIABETES SCREENBarnesville Hospitaltart: 72-20-9424Fcmpsnmbxntr vaccinationBarnesville Hospitaltart: 06-13-2022 Pneumococcal Vaccine: 50+ (2 of 2 - PCV)Pneumococcal Vaccine: 50+ (2 of 2 - PCV) [facility]: 04-16-2022 End: 19-05-1734Ew abdomen & pelvis w/o contrst 1/> body reCT UROGRAM WO/W IVCON Radiology Routine Malignant neoplasm of urinary bladder, unspecified site (HCC) Expected: 04/16/2022, Expires: 03/02/2023[facility] Work Phone: comment on above:Expected: 04/16/2022, Expires: 03/02/2023Start: 04-16-2022 End: 10-36-2309XB CHEST W IVCONCT CHEST W IVCON Radiology Routine Malignant neoplasm of urinary bladder, unspecified site (HCC) Expected: 04/16/2022, Expires: 03/02/2023[facility] Work Phone: comment on above:Expected: 04/16/2022, Expires: 03/02/2023Start: 81-33-7892RMDEYTEAMQ ASSESSMENTDEPRESSION ASSESSMENTBarnesville Hospitaltart: comp foot exam completedDIABETIC FOOT EXAMBarnesville Hospitaltart: 85-08-5471Fdbraljh foot examinationDiabetic Foot ExamBarnesville Hospitaltart: 92-44-6188NHU, Provider: Nayely Villasenor, Status: Pen, Time: 2:00 PMFUV, Provider: Nayely Villasenor, Status: Pen, Time: 2:00 PM UH-Symncuwmckxvb-KBM [address] Work Phone: start: 39-53-6662SRWTYHRBSKSW (2 - PCV)PNEUMOCOCCAL (2 - PCV)[facility]: 39-95-0744Zflmbyipybsz vaccinationThe [facility]health System Start: 29-27-0348Lajnkvfpdfhv Vaccine: 50+ (2 of 2 - PCV)Pneumococcal Vaccine: 50+ (2 of 2 - PCV)[facility]: 50-90-4362MEK ROME MEMORIAL HOSPITALMojeek SYSTEMStart: 01-31-2022 End: 24-81-6917Vfupqkujj (Vitamin B12) [Mass/volume] in Serum or PlasmaVITAMIN B12 BLOOD Lab Routine Malignant neoplasm of urinary bladder, unspecified site (HCC) Expected: 01/31/2022, Expires: 04/02/2022[facility] Work Phone: comment on above:Expected: 01/31/2022, Expires: 04/02/2022tart: 01-31-2022 End: 29-25-4688Ghrpouurjoztb metabolic 2000 panel - Serum or PlasmaCOMP METABOLIC PANEL Lab Routine Malignant neoplasm of urinary bladder, unspecified site (HCC) Expected: 01/31/2022, Expires: 04/02/2022[facility] Work Phone: comment on above:Expected: 01/31/2022, Expires: 2Start: 17-55-5490JKK, Provider: Nayely Villasenor, Status: Pen, Time: 11:20 AMFUV, Provider: Nayely Villasenor, Status: Pen, Time: 11:20 AM HG-Uqrtbohyxvzxk-YYG [place] [address] Work Phone: start: 27-35-0140QpfmrhgykSumma Health [facility] Work Phone: Start: 29-71-1588RhqaxutigSumma Health [facility] Work Phone: Start: 97-19-7103Davoasrfap procedureSumma Health W[facility] - [facility]itt[facility] Work Phone: Start: 82-39-8459Slzeyemc therapy procedureSumma Health [facility] Work Phone: Start: 36-72-8523Vrkxlbir to occupational therapist [facility] Work Phone: Start: 51-59-1908Sodxcblv admissionSumma Health [facility] Work Phone: Start: 53-73-7085RdfmnvacsSumma Health [facility] Work Phone: Start: 60-97-8371Oygfrcuxf vaccinationINFLUENZA (#1) [facility]: 11-08-2021 End: 74-30-3042WQPKNGZDXZ BLDCREATININE BLD Lab Routine Malignant neoplasm of urinary bladder, unspecified site (HCC) Expected: 11/08/2021, Expires: 2C[facility] Work Phone: comment on above:Expected: 11/08/2021, Expires: 2Start: 21-77-5547HAK, Provider: Nayely Villasenor, Status: Pen, Time: 3:00 PMFUV, Provider: Nayely Villasenor, Status: Pen, Time: 3:00 PM EI-Welaepyxwnjmu-GYI [place] [address] Work Phone: start: 79-48-5787PPYPF-19 VACCINE (5 - Booster for Moderna series)COVID-19 VACCINE (5 - Booster for Moderna series)[facility] Start: 59-98-5940CFVGL-19 VACCINE (6 - Booster for Moderna series)COVID-19 VACCINE (6 - Booster for Moderna series)[facility]: 65-63-8982YAGBF- 19 VACCINE (6 - Moderna series)COVID-19 VACCINE (6 - Moderna series)[facility]: 36-06-3207Peyvct wellness visitMetroHealthStart: 07-12-2021 Hemoglobin A1c/Hemoglobin.total in AmvvnAZD4KRebkhqimb ClinicStart: 07-06-2021 COVID-19 VACCINE (4 - Booster for Moderna series)COVID-19 VACCINE (4 - Booster for Moderna series)[facility]: 22-02-2409HMB, Provider: Nayely Villasenor, Status: Pen, Time: 1:00 PMFUV, Provider: Nayely Villasenor, Status: Pen, Time: 1:00 RYKR-Ytrjhljrwz-Pjyiowmt [address] Work Phone: Start: 06-43-8954UOFDDTZHXV ASSESSMENTDEPRESSION ASSESSMENTBarnesville Hospitaltart: 58-53-1130Qekjoupic vaccinationINFLUENZA (#1) [facility]: 75-73-7073KQP, Provider: Nayely Villasenor, Status: Pen, Time: 1:20 PMFUV, Provider: Nayely Villasenor, Status: Pen, Time: 1:20 PM YX-Xaivolvelfoub-DLS [place] [address] Work Phone: start: 39-43-0902X1H test (Diabetic or Prediabetic)A1C test (Diabetic or Prediabetic)[facility]: 82-89-1762Yaygqc Wellness Visit (AWV)Annual Wellness Visit (AWV)[facility]: 28-13-0052Wpbnoxtle vaccinationFlu vaccine (#1)[facility]: 34-53-4260Yvffyo cancer screenBreast cancer screenPremier Health [facility]: 69-04-7081Esrjy cancer screen colonoscopyColon cancer screen colonoscopyPremier Health [facility]: 12-77-1423Rqxnitxy (RZV) Vaccine (1 of 2)[facility]HealthStart: 96-29-4284Bcsghuzh Vaccine (1 of 2)Shingles Vaccine (1 of 2)[place] Start: 50-37-4139WXURKJUE VACCINE (1 of 2)SHINGRIX VACCINE (1 of 2)[facility]: 97-99-8047EGHRQASRU (FIT-DNA)COLOGUARD (FIT-DNA)[facility] Start: 93-84-5683KnkvnyjfkewHSPPUUIHJRJNitbvfutb ClinicStart: 2011 COLORECTAL CANCER SCREENINGCOLORECTAL CANCER SCREENINGBarnesville Hospitaltart: 48-89-8076GD COLONOGRAPHYCT COLONOGRAPHYBarnesville Hospitaltart: 46-14-6113EZXTC OCCULT BLOODFECAL OCCULT BLOODBarnesville Hospitaltart: 45-63-6746EZIAB SCREENLIPID SCREENBarnesville Hospitaltart: 23-01-0877Loputblcc for malignant neoplasm of colonBarnesville Hospitaltart: 79-85-6668IVIYPXAEZNQSYOBZWSLFPKLQNQEwjgsmsdz Clinic Start: 21-86-1936Zfpym screenLipid screenRaymond, [place]Start: 2006 MammographyCleRiverside Methodist Hospitaltart: 67-27-0884Ylrulzxua for malignant neoplasm of breastBarnesville Hospitaltart: 79-00-1560QJO TESTINGHPV TESTINGThe [facility] Start: 27-12-2358Ylgqwnapn for malignant neoplasm of cervixHPV TestingBarnesville Hospitaltart: 56-91-4404Krsvwwbe cancer screenCervical cancer screenPremier Health [facility]: 00-63-9622EFJ TESTINGPAP TESTINGBarnesville Hospitaltart: 1987 Screening for malignant neoplasm of cervixBarnesville Hospitaltart: 1985 Hepatitis A (HAV) Vaccine (optional start 19+ years)Hepatitis A (HAV) Vaccine (optional start 19+ years)[facility]: 52-77-6674MNTJTTPLN B (1 of 3 - Risk 3-dose series)HEPATITIS B (1 of 3 - Risk 3-dose series)[facility]: 76-47-4421Trlcomhya B vaccinationHepatitis B (HBV) Vaccine (1 of 3 - 19+ 3-dose series)[facility]: 10-78-4558Baaucdcts B Vaccine (1 of 3 - 19+ 3-dose series)Hepatitis B Vaccine (1 of 3 - 19+ 3-dose series)[facility]: 56-71-5555PHNUEXAK VACCINE (1 of 2)SHINGRIX VACCINE (1 of 2)[facility] Start: 24-90-2275Dwwyv microalbumin profileBarnesville Hospitaltart: 68-27-2401CSE [facility] SYSTEMStart: 48-34-7611CYOCLT PCP TEAM CHRONIC DISEASE VISITANNUAL PCP TEAM CHRONIC DISEASE VISITBarnesville Hospitaltart: 98-86-0479Sokwgcj Screening Anxiety ScreeningBarnesville Hospitaltart: 70-42-8260VI CONTROLLED (<130/80)BP CONTROLLED (<130/80)[facility]: 68-39-5518Iwtgkmaleo Screening Depression ScreeningBarnesville Hospitaltart: 47-62-7850Payyyvzu microalbuminuria testDiabetic microalbuminuria testPremier Health [facility]: 33-01-7824Zczwgtjoj B surface antibody levelLDL CHOLESTEROLBarnesville Hospitaltart: 1984 HEPATITIS C SCREENINGHEPATITIS C SCREENINGBarnesville Hospitaltart: 1984 Hepatitis C screeningBarnesville Hospitaltart: 49-85-4756XAW SCREENINGHIV SCREENING [facility]: 33-05-2796LLV screeningHIV ScreeningThe [facility] Start: 83-53-1725UGYSUCCMSLLGOREYUEGFLpftepwpd ClinicStart: 82-76-9884Zjxtjdg + diphtheria + acellular pertussis vaccine (product)[facility] Center[facility]: 1981 HIV screenHIV screenPremier Health Miami [facility]: 83-00-7299CUV screening [facility] CenterStart: 48-61-0627Wpway depression screening assessmentDEPRESSION SCREENINGBarnesville Hospitaltart: 01-49-0313DWTJM-19 VACCINE (1)COVID-19 VACCINE (1)[facility]: 54-51-7794JNoH/Tdap/Td vaccine (1 - Tdap)DTaP/Tdap/Td vaccine (1 - Tdap)[facility]: 1976[object Object]Diabetic foot examPremier Health Miami Valley Hospital [facility]: 52-23-0331Jizbkbld retinal examDiabetic retinal examPremier Health Miami [facility]: 96-44-3485Wmtkxccx screeningDilated Retinal ExamBarnesville Hospitaltart: 61-62-5522Uxfyobryc B screeningURINE ALBUMIN:CREATININE RATIOBarnesville Hospitaltart: 96-94-0794Mambcwior C antibody, confirmatory testDILATED RETINAL EXAMCleRiverside Methodist Hospitaltart: 17-52-2337Xvogs screenLipid screenSelect Medical Specialty [facility], NHStart: 92-69-0143Aacbzhta screening [facility]HealthStart: 75-83-2309Omjea panelMetroHealthStart: 46-08-2461Vtgxy screening for proteinMetroHealthStart: 25-68-4401Cknsmexr foot examination MetroHealthStart: 85-60-2909BXWLWSRHQ B (1 of 3 - 3-dose series)HEPATITIS B (1 of 3 - 3-dose series)[facility]: 00-83-8330Snpnmgfcw B vaccination [facility]HealthStart: 80-39-5942Nxugguppj B Vaccine (1 of 3 - 3-dose series) Hepatitis B Vaccine (1 of 3 - 3-dose series)[facility]: 1965 Screening for malignant neoplasm of colonMetroHealthBacteria identified in Blood by CultureTwin City HospitalBacteria identified in Urine by CultureGalion Hospital Work Phone: Basic metabolic 1999 panel - Serum or PlasmaTHE [facility] Work Phone: CBC panel - Blood by Automated countTHE [facility] Work Phone: Comprehensive metabolic 1999 panel - Serum or Plasma [facility] End: 19-51-0324XBHKPFQ TOPOGRAPHY PENTACAM OU (BOTH EYES)CORNEAL TOPOGRAPHY PENTACAM OU (BOTH EYES) OPHT Imaging Routine Combined forms of age-related cataract of left eye Combined forms of age-related cataract of right eye 1 Occurrences starting 11/13/2024 until 05/07/2026[facility] SystemComment on above:1 Occurrences starting 11/13/2024 until 05/07/2026Crtj shunt zdmlwixjdf-umvxykqxj-ultfvxm terminusIMPLANT SHUNT VENTRICULOPERITONEAL Communicating hydrocephalus (HCC)[facility] End: 82-08-8870Hz abdomen & pelvis w/contrast materialCT ABD/PEL W IVCON Radiology Routine History of bladder cancer Abdominal pain, unspecified abdominal location 1 Occurrences starting 10/11/[address] [place] [address] Work Phone: comment on above:1 Occurrences starting 10/11/2021 until 11/10/2022 End: 79-37-5270Yc abdomen & pelvis w/o contrst 1/> body reCT UROGRAM WO/W IVCON Radiology Routine Malignant neoplasm of urinary bladder, unspecified site (HCC) 1 Occurrences starting 11/30/[address] [place] [address] Work Phone: comment on above:1 Occurrences starting 11/30/2021 until 12/30/2022 End: 68-23-7992HU BRAIN WO IVCONCT BRAIN WO IVCON Radiology Routine Other hydrocephalus (HCC) 1 Occurrences starting 08/25/[address] [place] [address] Work Phone: comment on above:1 Occurrences starting 08/25/2022 until 09/24/2023 End: 19-30-7495DT BRAIN WO IVCONCT BRAIN WO IVCON Radiology Routine Other hydrocephalus (HCC) 1 Occurrences starting 09/21/[address] [place] [address] Work Phone: comment on above:1 Occurrences starting 09/21/2022 until 10/21/2023 End: 45-86-0318IX BRAIN WO IVCONCT BRAIN WO IVCON Radiology Routine Other hydrocephalus (HCC) 1 Occurrences starting 12/14/[address] [place] [address] Work Phone: comment on above:1 Occurrences starting 12/14/2022 until 01/13/2024 End: 44-44-5023RM Chest W contrast IVCT CHEST W IVCON Radiology Routine Malignant neoplasm of urinary bladder, unspecified site (HCC) 1 Occurrences starting 09/12/2024 until 10/12/2025[facility] HospitalComment on above:1 Occurrences starting 09/12/2024 until 10/12/2025T Chest W contrast IVCT CHEST W IVCON Radiology Routine History of bladder cancer 10/02/2024 2:[address] [facility] Work Phone: End: 70-79-1767JU CHEST W IVCONCT CHEST W IVCON Radiology Routine History of bladder cancer 1 Occurrences starting 01/09/[address] [place] [address] Work Phone: comment on above:1 Occurrences starting 01/09/2023 until 02/08/2024 End: 12-16-9332IO Guidance for stereotactic biopsy of Head-- WO contrastCT BRAIN STEREOLOCAL WO IVCON Radiology Routine Communicating hydrocephalus (HCC) 1 Occurrences starting 09/06/2023 until 10/05/2024[facility] Charles HospitalComment on above:1 Occurrences starting 09/06/2023 until 10/05/2024 End: 32-74-7303MY Head WO contrastCT BRAIN WO IVCON Radiology Routine Other hydrocephalus (HCC) 1 Occurrences starting 08/30/[address] [place] [address] Work Phone: comment on above:1 Occurrences starting 08/30/2023 until 09/28/2024 End: 19-18-4649VP Head WO contrastCT BRAIN WO IVCON Radiology Routine Other hydrocephalus (HCC) 1 Occurrences starting 10/19/[address] [place] [address] Work Phone: comment on above:1 Occurrences starting 10/19/2023 until 11/17/2024 End: 29-01-5281QA Head WO contrastCT BRAIN WO IVCON Radiology Routine Other hydrocephalus (HCC) 1 Occurrences starting 10/31/[address] [place] [address] Work Phone: comment on above:1 Occurrences starting 10/31/2023 until 11/29/2024 End: 34-32-8650ES Head WO contrastCT BRAIN WO IVCON Radiology Routine Other hydrocephalus (HCC) 1 Occurrences starting 11/29/[address] [place] [address] Work Phone: comgkgh on above:1 Occurrences starting 11/29/2023 until 12/28/2024 End: 19-33-9525UA Head WO contrastCT BRAIN WO IVCON Radiology Routine Other hydrocephalus (HCC) 1 Occurrences starting 01/10/[address] [place] [address] Work Phone: comment on above:1 Occurrences starting 01/10/2024 until 02/08/2025 End: 33-68-5817RD Head WO contrastCT BRAIN WO IVCON Radiology Routine Other hydrocephalus (HCC) 1 Occurrences starting 01/30/[address] [place] [address] Work Phone: comment on above:1 Occurrences starting 01/30/2024 until 02/28/2025 End: 40-69-7594ES Head WO contrastCT BRAIN WO IVCON Radiology Routine Other hydrocephalus (HCC) 1 Occurrences starting 06/18/[address] [place] [address] Work Phone: comment on above:1 Occurrences starting 06/18/2024 until 07/18/2025 End: 60-62-0899QC Head WO contrastCT BRAIN WO IVCON Radiology Routine Other hydrocephalus (HCC) 1 Occurrences starting 07/17/[address] [place] [address] Work Phone: comment on above:1 Occurrences starting 07/17/2024 until 08/16/2025 End: 16-53-0090WE Head WO contrastCT BRAIN WO IVCON Radiology Routine Other hydrocephalus (HCC) 1 Occurrences starting 08/01/[address] [place] [address] Work Phone: comment on above:1 Occurrences starting 08/01/2024 until 08/31/2025 End: 72-86-2109SB Head WO contrastCT BRAIN WO IVCON Radiology Routine Other hydrocephalus (HCC) 1 Occurrences starting 10/09/[address] [place] [address] Work Phone: comzejc on above:1 Occurrences starting 10/09/2024 until 11/08/2025 End: 00-68-3792HT Kidney WO and W contrast IVCT UROGRAM WO/W IVCON Radiology Routine Malignant neoplasm of urinary bladder, unspecified site (HCC) 1 Occurrences starting 09/12/[address] [place] [address] Work Phone: comment on above:1 Occurrences starting 09/12/2024 until 6CT Unspecified body regionTwin City Hospital Culture fngi mold/yeast prsmptv oth xcpt bloodTHE [facility]RO[facility] Work Phone: CYTOLOGY NON-GYNCYTOLOGY NON-SUMMER ASSOCIATE Lab Routine History of bladder cancer Ordered: 01/09/2023[facility] Work Phone: comment on above:Ordered: 01/09/2023 End: 29-22-9487FLU COMPLETEECG COMPLETE ECG Routine Communicating hydrocephalus (HCC) 1 Occurrences starting 09/06/2023 until 09/05/2024[facility] HospitalComment on above:1 Occurrences starting 09/06/2023 until 09/05/2024 End: 27-52-7632WZN DIAGNOSTICEGD DIAGNOSTIC Endoscopy Routine Nausea and vomiting, unspecified vomiting type 1 Occurrences starting 08/23/2021 until 08/23/2022[facility] Work Phone: Comment on above:1 Occurrences starting 08/23/2021 until 08/23/2022 End: 86-64-4385NHX(NEURO/NI)EMG(NEURO/NI) EMG Routine Spasticity 1 Occurrences starting 03/18/2024 until 03/18/2025[facility] HospitalComment on above:1 Occurrences starting 03/18/2024 until 03/18/2025 End: 68-44-0048Rpmjliu emptying imaging studyNM GASTRIC EMPTYING SOLID Radiology Routine Early satiety Nausea 1 Occurrences starting 08/23/2021 until 09/22/2022 [facility] Work Phone: Comment on above:1 Occurrences starting 08/23/2021 until 09/22/2022Laps insertion tunneled intraperitoneal catheterLAPAROSCOPIC INSERTION OF INTRAPERITONEAL CANNULA OR CATHETER, PERMANENT Communicating hydrocephalus (HCC)[facility] End: 03-41-4629CX Brain WO and W contrast IVMRI BRAIN WO/W IVCON Radiology Routine 1 Occurrences starting 09/18/2023 until 10/17/2024[facility] Work Phone: Comment on above:1 Occurrences starting 09/18/2023 until 10/17/2024 End: 96-04-6019YH Cervical spine WO and W contrast IVMRI CERVICAL SPINE WO/W IVCON Radiology Routine Hydrocephalus, adult (HCC) Meningitis, fungal Weakness of both lower extremities Spasticity 1 Occurrences starting 09/18/2023 until 5[facility] ClinicComment [facility] above:1 Occurrences starting 09/18/2023 until 10/17/2024 End: 69-24-7905BO Guidance for stereotactic localization of Brain-- WO and W contrast IVMRI BRAIN LOCALIZATION WO/W IVCON Radiology Routine Communicating hydrocephalus (HCC) 1 Occurrencesstarting 09/06/2023 until 10/05/2024leveland ClinicComment on above:1 Occurrences starting 09/06/2023 until 10/05/2024 End: 80-83-3817GR Lumbar spine W contrast IVMRI LUMBAR SPINE PRE-OP LOCALIZATION W IVCON Radiology Routine Hydrocephalus, adult (HCC) Meningitis, fungal Weakness of both lower extremities Spasticity 1 Occurrences starting 09/18/2023 until 5[facility] ClinicComment on above:1 Occurrences starting 09/18/2023 until 10/17/2024 End: 16-75-6226JB Thoracic spine WO and W contrast IVMRI THORACIC SPINE WO/W IVCON Radiology Routine Hydrocephalus, adult (HCC) Meningitis, fungal Weakness of both lower extremities Spasticity 1 Occurrences starting 09/18/2023 until 5[facility] ClinicComment on above:1 Occurrences starting 09/18/2023 until 10/17/2024 End: 41-07-3062Mdm spinal canal cervical w/o & w/contr matrlMRI CERVICAL SPINE WO/W IVCON Radiology Routine Cervicalgia 1 Occurrences starting 07/19/2022 until 08/18/2023[facility] Work Phone: comment on above:1 Occurrences starting 07/19/2022 until 08/18/2023 End: 72-51-2865TAZ MACULA CIRRUS OU (BOTH EYES)OCT MACULA CIRRUS OU (BOTH EYES) OPHT Imaging Routine Combined forms of age-related cataract of left eye Combined forms of age-related cataract of right eye 1 Occurrences starting 11/13/2024 until 05/07/2026[facility] Work Phone: Comment on above:1 Occurrences starting 11/13/2024 until 05/07/2026Pulse volume recorder pneumoplethysmographyTwin City HospitalREFER FOR ADMIT INTERVIEWREFER FOR ADMIT INTERVIEW Procedures Routine Communicating hydrocephalus (HCC) Ordered: 09/06/2023[facility] Comment on above:Ordered: 09/06/2023 End: 72-96-9927Lyszxhbwy colonoscopyCOLONOSCOPY SCREENING Endoscopy Routine Encounter for screening for malignant neoplasm of colon 1 Occurrences starting 08/23/2021 until 3[facility] Work Phone: Comment on above:1 Occurrences starting 08/23/2021 until 08/23/2022 End: 84-96-6426Qylppeao magnetic resonance procedureMRI LUMBAR SPINE PRE-OP LOCALIZATION W IVCON Radiology Routine Cervicalgia 1 Occurrences starting until 4C[facility] Work Phone: comment on above:1 Occurrences starting 07/19/2022 until 08/18/2023Ureteroenterostomy anast ureter intestineTHE [facility] [employer] Work Phone: Ureterolysis w/worpsg ureter retroperit fibrosisTHE [employer] Work Phone: URINALYSIS, REFLEX MICROSCOPICURINALYSIS, REFLEX MICROSCOPIC Lab Routine Screening for genitourinary condition Or[facility]: [facility] Work Phone: comment on above:Ordered: 09/12/2023 End: 92-72-7231Xbvtj test visual color cmprsn methsTHE [employer] Work Phone: End: 74-47-6721VR Kidney - bilateral and Urinary bladderUS KIDNEY/BLADDER Radiology Routine History of bladder cancer 1 Occurrences starting 09/14/[address] [place] [address] Work Phone: compjjt on above:1 Occurrences starting 09/14/2023 until 10/13/2024US Kidney - bilateral and Urinary bladderUS KIDNEY/BLADDER Radiology Routine History of bladder cancer 10/04/2023 3:25 PM EDEast [facility] Work Phone: US Lower extremity vein - bilateralTwin City HospitalXR Ankle - left AP and Lateral and obliqueXR ANKLE GENERAL 3V AP/LAT/OBL LEFT Radiology Routine Tibia/fibula fracture, left, closed, initial e ncounter 10/25/2023 12:01 PM EDSelect [facility] - CantonXR Ankle - left AP and Lateral and obliqueXR ANKLE GENERAL 3V AP/LAT/OBL LEFT Radiology Routine Tibia/fibula fracture, left, closed, initial encounter 11/27/2023 9:01 AM [facility] End: 14-09-5105XD Femur - left AP and LateralXR FEMUR GENERAL 2V AP/LAT LEFT Radiology Routine Tibia/fibula fracture, left, closed, initial encounter 1 Occurrences starting 08/27/2024 until 09/26/2025[facility] Work Phone: comment on above:1 Occurrences starting 08/27/2024 until 09/26/2025XR Femur - left AP and LateralXR FEMUR GENERAL 2V AP/LAT LEFT Radiology Routine Tibia/fibula fracture, left, closed, initial encounter 09/11/2024 11:00 AM [facility] Work Phone: End: 69-10-5577UP Femur - left AP and LateralXR FEMUR GENERAL 2V AP/LAT LEFT Radiology Routine Closed fracture of distal end of left femur, unspecified fracture morphology, initial encounter (HCC) 1 Occurrences starting 12/11/2024 until 01/10/2026[facility] Work Phone: comment on above:1 Occurrences starting 12/11/2024 until 01/10/2026 End: 28-49-8557JZ GI SMALL BOWEL FOLLOW-THRUXR GI SMALL BOWEL FOLLOW-THRU Radiology Routine Small bowel obstruction (HCC) 1 Occurrences starting 12/14/2021 until 3C[facility] Center Work Phone: comment on above:1 Occurrences starting 12/14/2021 until 01/13/2023 End: 37-53-9323CN Knee - left AP and LateralXR KNEE LIMITED 2V AP/LAT LEFT Radiology Routine Closed nondisplaced transverse fracture of left patella, initial encounter 1 Occurrences starting 06/21/[address] [place] [address] Work Phone: Comment on above:1 Occurrences starting 06/21/2023 until 07/20/2024 End: 95-60-1476AV Knee - left AP and LateralXR KNEE LIMITED 2V AP/LAT LEFT Radiology Routine Closed nondisplaced transverse fracture of left patella, initial encounter 1 Occurrences starting 08/14/[address] [place] [address] Work Phone: Comment on above:1 Occurrences starting 08/14/2023 until 09/12/2024XR Knee - left AP and LateralXR KNEE LIMITED 2V AP/LAT LEFT Radiology Routine Closed nondisplaced transverse fracture of left patella, initial encounter 08/14/2023 12:56 PM [facility] Work Phone: XR Tibia and Fibula - left AP and LateralXR TIBIA FIBULA 2V AP/LAT LEFT Radiology Routine Tibia/fibula fracture, left, closed, initial encounter 10/25/2023 12:01 PM [facility] Work Phone: End: 01-30-1301DA Tibia and Fibula - left AP and LateralXR TIBIA FIBULA 2V AP/LAT LEFT Radiology Routine Tibia/fibula fracture, left, closed, initial encounter 1 Occurrences starting 11/27/[address] [place] [address] Work Phone: Comment on above:1 Occurrences starting 11/27/2023 until 12/26/2024XR Tibia and Fibula - left AP and LateralXR TIBIA FIBULA 2V AP/LAT LEFT Radiology Routine Tibia/fibula fracture, left, closed, initial encounter 11/27/2023 9:01 AM [facility] Work Phone: XR Tibia and Fibula - left AP and LateralXR TIBIA FIBULA 2V AP/LAT LEFT Radiology Routine Tibia/fibula fracture, left, closed, initial encounter 01/10/2024 10:28 AM [facility] Work Phone: End: 15-40-8943LB UPPER GI SINGLE CONTRASTXR UPPER GI SINGLE CONTRAST Radiology Routine Small bowel obstruction (HCC) 1 Occurrences starting 12/14/2021 until 01/13/2023[facility] Work Phone: comment on above:1 Occurrences starting 12/14/2021 until [facility] Immunizations Immunization DateImmunizationNotesCare RskhfrynBfhgjusv62-48-6557tgjmpxzef, seasonal, injectable, preservative freeBenjamin Ball DO Work Phone: [facility]03-26-2024Hemoglobin U6GRjfhp ResidentOHIOHEALTH NEL[facility] Work Phone: [phone]ca X0IIahujvv Phoebe [facility] Work Phone: [phone]c, injectable, quadrivalent, preservative freeBenjamin Ball Other [facility]10-05-2023influenza virus vaccine, unspecified formulationMarlene Cordero PA-C Work Phone: cMer[facility] St[facility] Charles HospitalPvxavn93-71-8594obpggreyne skin test; unspecified formulationBridwilbur Sandhu EYOoyxxBqdsoo31-66-5772yxsiwnhqp virus vaccine, unspecified formulationPeterson Gonsalez MD Work Phone: cMer[facility] Health St. Charles HospitalCpwmqc45-60-7844Ufdgrcq COVID-19 Vaccine 100 MCG/0.5ML Intramuscular SuspensionCarebecca NUÑEZC Work Phone: [phone]-Xgonffmchzera-[facility] [place] [address] Work Phone: [phone]lsc COVID-19 Vaccine 100 MCG/0.5ML Intramuscular SuspensionCaitlin Omoregie PA-C Work Phone: [phone]-Vgqkoxdlptjom-[facility] [address] Work Phone: [phone]C-59 mRNA-1273 (Moderna)DO Juliette Jamaica Work Phone: [facility]11-06-2021 pneumococcal polysaccharide vaccine, 23 valentCaitlin Omoregie PA-C Work Phone: [phone] Epzcih54-72-2722lxdtikhwn, seasonal, injectableCaitlin Omoregie PA-C Work Phone: [phone] Zbjoey55-25-2089oawupnzoy virus vaccine, unspecified formulationJennifer Sandhu RNT[facility]ITALMo[facility] SYSTEM Work Phone: [phone]sg COVID-19 Vaccine 100 MCG/0.5ML Intramuscular SuspensionCaitlin Omoregie PA-C Work Phone: [phone]01-29-2021Moderna COVID-19 Vaccine 100 MCG/0.5ML Intramuscular SuspensionCaitlin Omoregie PA-C Work Phone: [phone]-Mljsabpbst-[place] [address] Work Phone: [phone]-43 mRNA-1273 (Moderna)DO Juliette Berumen Work Phone: [facility]09-12-2019Influenza, injectable, Madin Daija Canine Kidney, quadrivalent with preservativeCaitlin Omoregie PA-C Work Phone: [phone] Laudkj12-14-2376Awqglzmdm, injectable, Madin Daija Canine Kidney, quadrivalent with preservativeCaitlin Omoregie PA-C Work Phone: [phone] Xrwhre70-50-8789slhdogqks, injectable, quadrivalent, preservative freeCaitlin Omoregie PA-C Work Phone: [place] Fobarx96-22-0192smvhfhakn, injectable, quadrivalent, preservative freeCaitlin Omoregie PA-C Work Phone: [place] Ctdolc74-98-8603ntqtj jdvqytmte-T0V9-43, preservative-free, injectableCaitlin Omoregie PA-C Work Phone: [place] Uxjgwp42-86-8643viiavxvbivdl polysaccharide vaccine, 23 valentCaitlin Omoregie PA-C Work Phone: [facility] Payers DatePayer CategoryPayerPolicy [id number]-wpr [id number] 2025Medicare (Managed Care) [id number] Health Insurance [id number] [id number].3.012827.0[id number] [id number] 1.2.840.394268.1.13.159.2.7.3.523349.315 2021Medicare 1.2.840.698263.1.13.56.2.7.3.192398.68561-21-1738ZewwkedWXI MMO SUPERMED PLUS [id number] 2018-Present [id number] 1.2.840.140909.1.13.159.2.7.3.801636.315 2019MedicareHUMANA MEDICARE HUMANA CHOICE-PPO MEDICARE xxxxxxxxx 2018-Present [address] [address] [place] [address] [phone] 1.2.840.776133.1.13.239.2.7.3.735541.315 2019Medicare [id number] 2.16.840.1.242491.3.579.2.53165-39-9496Ngomtiv [id number] 2.16.840.1.185293.3.57[id number] 2.16.840.1.203536.3.57[id number] 2.16.840.1.643087.3.57[id number] 2.16840.1.833929.3.579.2.72644-32-8808Srcfmqa9045105 2.16.840.1.630161.3.57[id number] 2.16.840.1.213231.3.579.[id number] 2.16.840.1.554514.3.57[id number] 2.16.840.1.011762.3.579.2.64556-47-3570Hxkubii3595062 2.16.840.1.110968.3.579.2.87117-81-2251Vloalbp3028204 2.16.840.1.011702.3.579.2.17929-93-2571Iytvvuy7755116 2.16.840.1.212492.3.57[id number] 2.16840.1.301966.3.57[id number] 2.16840.1.790687.3.579.2.7[id number] 2.840.1.374290.3.579.2.77108-13-9525Bfczjaf220043906 2.16.840.1.929576.3.57[id number] 2.840.1.162222.3.57[id number] 2.0.1.036138.3.57[id number] 2.840.1.292998.3.579.2.[id number] 2.840.1.584574.3.579.[id number] 2.840.1.804065.3.57[id number] 2.0.1.514957.3.57[id number] 2.840.1.554910.3.57[id number] 2.840.1.856542.3.579.2.74[id number] 2.840.1.084251.3.57[id number] 2.840.1.780514.3.579.2.[id number] 2.840.1.774046.3.57[id number] 2.840.1.760379.3.57[id number] 2..1.822384.3.579.2.52523-87-7165Oavyfcj248627446 2..1.510330.3.57[id number] 2..1.519184.3.57[id number] 2..1.073553.3.579.2.182 [id number] [id number] [id number] [id number] [employer] Insurance Self [id number] [id number] [id number] Auto/Liability [id number] 2..1.1[id number] 2..[id number] [id number] 2..[id number] 2..[id number] [id number] Social History DateTypeDetailFacilityAssertionUnknown if ever zlysgvQO-Aibfgxvnetejy-Uybhuvu [facility] Work Phone: Start: 91-11-6855Ziv Assigned At [place]Not on [place], [place]: 55-87-9272Gmi [facility] At [facility]: 02-16[facility]2021 End: 45-16-6358Dohkqsp smoking status NHISNever smoked tobaccoThe [facility] System Start: 02-16-2021 End: 85-79-8736Ccdomjl use and exposureSmokeless tobacco non-userBarnesville Hospitaltart: 08-23-2021 End: 29-49-5500Wysxqrt intakeEx-drinker (finding)[facility]: 02-16-2021 End: 39-18-0327Nrxpamj SDOH Alcohol Irjunjjhb2Dzuqyxjgp ClinicStart: 02-14-2021 End: 29-00-6950Ysjutidh to SARS-CoV-2 (event)Not sureBarnesville Hospitaltart: 12-20-2021 End: 34-96-9819Sakgedu SDOH Transport Wvr7Qbgyhyapy ClinicStart: 12-20-2021 History SDOH Housing Unable to Bwp3Bqkjlctfi ClinicStart: 09-21-2022 End: 83-01-2767Kuh [facility]igned At [facility]: 91-43-0111Lxppidy SDOH Teasruwwi5Soxudwsww ClinicStart: 09-21-2022 End: 85-09-8701Cozmwun of Social functionBarnesville Hospitaltart: 51-92-8094Faa hard is it for you to pay for the very basics like food, housing, medical care, and heatingNot hard at allThe [facility] System(I/We) worried whether (my/our) food would run out before (I/we) got money to buy more.Never trueThe Metrohealth SystemIn the past 12 months, was there a time when you were not able to pay the mortgage or rent on time?NoCleveland ClinicHow hard is it for you to pay for the very basics like food, housing, medical care, and heatingNot very hardMetroHealth Tobacco smoking statusNo Smoking Status [facility] Start: 84-36-0578Ewccjnhtk beverage intakeLifetime non-drinker (finding) [facility]: 02-25-2024 End: 78-00-9865AvgQndmht (finding)[facility] HospitalAt any time in the past 12 months, were you homeless or living in retirement [including now]? YesThe Metrohealth SystemTouniversity of [facility] smoking status NHISTobacco smoking consumption unknownNOMS Healthcare Medical Equipment Procedure CodeEquipment CodeEquipment Original TextEquipment IdentifierDates Accu-Chek Nadia Plus In Vitro Strip TEST 5 TIMES DAILY DIRECTED Quantity: 2 Refills: 11 OmoregiePA-C, Nayely Start : 21-Mar-2019 Active 100 Strip BoxStart: 80-80-2955Omfy-Chek Softclix Lancets TEST BLOOD GLUCOSE 5 TIMES A DAY Quantity: 1 Refills: 11 Omoregie PA-C, Nayely Start : 21-Mar-2019 Active 200 Unit Box Start: 73-21-3442Ktym-Chek Nadia Plus In Vitro Strip TEST 5 TIMES DAILY DIRECTED Quantity: 2 Refills: 11 OmoregiePA-C, Nayely Start : 21-Mar-2019 Active 100 Strip BoxStart: 92-37-2493Chtm-Chek Softclix Lancets TEST BLOOD GLUCOSE 5 TIMES A DAY Quantity: 1 Refills: 11 Omoregie PA-C, Nayely Start : 21-Mar-2019 Active 200 Unit BoxStart: 73-89-6322Ztnav Inlay [place] 8fr Taper [place] Polymer Phreecoat 30cm Ureteral - [id number]_juxIfiyg: 24-32-7793Rwpdh Inlay [place] 8fr Taper [place] Green Polymer Phreecoat 30cm Ureteral - [id number]_impStart: 90-34-3712Qdjgp Inlay [place] 7fr Taper [place] Green Polymer Phreecoat 24cm Ureteral - [id number]_hznDsbsr: 57-48-5967Khd External Drainage 35cm 1.5mm 3-15cm Catheter Inner Lumen Depth Aly - [id number]_impStart: 21-51-1527Uldycww on above:Description: SiliconeKit Catheter 120cm Peritoneal Ventricular Shunt Codman Bactiseal 14cm - [id number]_bjv Start: 89-92-4500Avgnedq on above:Description: Silicone Matrix-Nonmetallic [place]ortenc[place] 6mm Plastic Base 15cm Shunt Ventricular Catheter - [id number]_rqjZtgsr: 69-15-9785Qzauelw on above:Description: Silicone Programmable Valve Inline Small Valve W/[id number]_arhIoqzj: 07-10-2022 Comment on above:Description: Codman Certas Plus Programmable Valve 1.5/ 3T 1999 [id number]_ddwZqrbc: 30-50-6980Kinswjt for Camraul [id number]: 72-30-0725Avr as bswrsquc821118288Omjwv: 08-93-4353Y3 Alpha Tibial Nail 11mm X 330mm3642281_impStart: 03-90-9661Sgulvsjw Locking Screw 5mm X 37mm Sterile [id number]_impStart: 39-35-8107Ujoplqcz Locking Screw 5mm X 37mm Gyuqvle3411704_chr Start: 96-36-0707Iyfvyeqz Locking Screw 5mm X 40mm Pgmmntq1983240_yraCpkpk: 85-26-4993Ytlhlmx Screw 5x45mm - [id number]_bjrHcevn: 42-94-0381Ouquqvto Locking Screw 5mm X 47mm3642282_impStart: 84-61-7272Cjxjhhip Drainage 120cm Peritoneal Codman Bactiseal Barium Silicone Sterile - [id number]_hps Start: 62-68-3046Qyjnxsslv Shunt 15cm Csf Ventricular Catheter Base Codarian Ho - [id number]_pghDceno: 16-83-2947Qmyvedjrgutv Valve Inline Small Valve W/Qyxxawzavqx4560709_ycqQjnha: 15-47-8446Btajvvpawbjn Valve Inline Small Valve W/Fiyrptuxaqb7084781_dlbRnmob: 85-07-1891810497_fmvDfuvb: 03-13-2024 [Order 1 Start] Name: dextrose 10 % iv infusion Signed Summary: 125 mL, Intravenous, at 999 mL/hr, PRN, Starting on Sun06/25/23 at 1721, Until Discontinued, For blood glucose less than 70 mg/dL, withIV access and with loss of consciousness or unable to swallow or NPO [Order 1 End] [Order 2 Start] Name: glucagon (GLUCAGEN) 1 MG injection Signed Summary: 1 mg, Subcutaneous, PRN, Starting on Sun06/25/23 at 1721, Until Discontinued, For blood glucose less than 70 mg/dL and with no IV access with loss of consciousness or alert and unable to swallow. [Order 2 End] [Order 3 Start] Name: dextrose (GLUTOSE) 40 % oral gel Signed Summary: 15 g of glucose, Buccal, PRN, Starting on Sun06/25/23 at 1721, Until Discontinued, blood glucose between 50 - 69 mg/dL, and with no IV access, alert and able to swallow. [Order 3 End] [Order 4 Start] Name: dextrose (GLUTOSE) 40 % oral gel Signed Summary: 30 g ofglucose, Buccal, PRN, Starting on Sun06/25/23 at 1721, Until Discontinued, blood glucose of 49mg/dLor less, and with no IV access, alert and able to swallow. [Order 4 End][id number]: 23-24-1605Hca T2 8mm 4mm End Insertion Arthrodesis Nail Sterile Ankle - [id number]_iawNrdvk: 71-76-7460Yvhx Femoral Retrograde U99r382sp 4048747_impStart: 77-64-3054Pssjmwoo Locking Screw 5x85mm4048748_impStart: 08-28-6151Hklmvckw Locking Screw 5x60mm - [id number]_vfpPipeb: 08-23-2024 Locking Screw 5x35mm - [id number]_qroKsjly: 45-35-8766Gfootlw Screw 5x32mm - [id number]_vkhNqiik: 86-67-1637Lonnhdcj Locking Screw 5x75mm - [id number]_zbmEnelp: 48-93-8192Dlstejck Locking Screw 5x65mm - [id number] 4048753_impStart: 08-23-2024 Goals DatePatient GoalDesired Activity/StatePersonal health goal Functional Status ZhsdXcglesoshwSqjtbyPfwoqikp59-63-5366Fpf you deaf, or do you have serious difficulty hearingNo 08/28/2024 11:29 AM Nivia Nicholson RN [facility] HealthcareOnbxqf83-84-1207Cpf you blind, or do you have serious difficulty seeing, even when wearing glassesNo 08/28/2024 11:29 AM Nivia Nicholson RN No The [facility] SystemLxwyqx18-48-0010Fm you have serious difficulty walking or climbing stairsYes 08/28/2024 11:29 AM Nivia Nicholson RN [facility] 69-02-7095Ti you have difficulty dressing or bathingNo 08/28/2024 11:29 AM Nivia Nicholson RN [facility] HealthcareDqmuam86-23-6567Czhgswu of a physical, mental, or emotional condition, do you have difficulty doing errands alone such as visiting a physician's office or shoppingYes 08/28/2024 11:29 AM Nivia Nicholson RN [facility]07-06-2024Are you deaf, or do you have serious difficulty hearingNo 10/20/2023 11:12 AM Maddy Toussaint RN [facility] HealthcareQzatyf30-96-1043Hmr you blind, or do you have serious difficulty seeing, even when wearing glassesNo 10/20/2023 11:12 AM Maddy Toussaint RN [facility]07-06-2024Do you have serious difficulty walking or climbing stairsYes 10/20/2023 11:12 AM Maddy Toussaint RN Yes [facility] SystemKpicnv77-23-1029Ku you have difficulty dressing or bathingYes 10/20/2023 11:12 AM Maddy Toussaint RN [facility]07-06-2024 Because of a physical, mental, or emotional condition, do you have difficulty doing errands alone such as visiting a physician's office or shoppingYes 10/20/2023 11:12 AM Maddy Toussaint RN [facility]06-22-2024 Functional StatusN/[facility] HospitalNEGATED: Highlighted row Functional performanceFunctional status health issues are not documented Disease [facility] Work Phone: Mental Status GkzsMdtkdlfzixOcoeqpMtauyvnh92-57-3301Hiofgrb of a physical, mental, or emotional condition, do you have serious difficulty concentrating, remembering, or making decisionsNo 08/28/2024 11:29 AM Nivia Nicholson RN [facility] HealthcareZcunyv58-13-4386Uthytyg of a physical, mental, or emotional condition, do you have serious difficulty concentrating, remembering, or making decisionsYes 10/20/2023 11:12 AM Maddy Toussaint RN [facility] CenterNEGATED: Highlighted rowCognitive function [Interpretation]Cognitive status health issues are not documented XqtbmqiXZ-Dqlhqcyrntder-ExtbmkwSpaulding Rehabilitation Hospital Work Phone: Clinical Notes 06-13-2019 to 02-17-2025 Note Date & IghxBbdrLkdgnvrz58-99-1078 NoteHNO ID: [id number] Author: AASIHSH MONGE PA-C Service: ? 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 She states that she has some discomfort to the left knee but overall feeling good. She is now in a motorized wheelchair and has been seeing a spine surgeon regarding a spot on her spine. She is hoping to have surgery to remove the area causing the compression on her spine in the next few months. She has been standing with the help of her wheelchair and PT and does not have pain to the left knee with standing. Physical Exam: General: No acute distress, alert and oriented x3 and Awake and alert Left Lower Extremity: Skin:Incision well healed without any evidence of infection. No erythema, drainage or expressible discharge and Closed without ulcerations, lacerations, rashes or abrasions Vascular: Foot warm and well perfused with brisk capillary refill and Palpable DP/PT pulse Neuro: Sensation intact in saphenous/sural/deep peroneal/superficial peroneal/tibial nerve distribution Musculoskeletal: No tenderness to palpation over fracture, mild TTP over distal interlocking screw Imaging: I personally reviewed xrays of left femur and discussed with patient: Demonstrate maintained fracture alignment with no interval displacement, intact hardware, healing fracture but not fully healed at this time Assessment and Plan: Patient is a 59 year old female 6 months s/p Left femur IMN -Patient is doing well postoperatively -Patient did not require a refill of pain medications today -Discussed fracture appears healed a this time -Discussed removal of the distal interlocking screw if it causes discomfort moving forward, she will reach out to office if she decides she wants it removed -Weightbearing: Weight bearing as tolerated , Range of motion as tolerated, and Strengthening as tolerated -Follow up: PRN with x-rays JONNIE Meléndez-[facility]11-04-2025 NoteHNO ID: [id number] Author: ARIS RIVER RT(R) Service: ? Author Type: Technologist Type: Progress Notes Filed: 02/17/2025 09:17 Note Text: Radiology Service Progress Note PATIENT NAME: Chikis Tobar DATE OF SERVICE: February 17, 2025 TIME: [...] Assigned female at . status: : No status: NO. PATIENT RELEVANT IMPLANT DATA REVIEWED: Yes PATIENT PRESENTS WITH AN IMPLANTABLE OR ATTACHED AIRCRAFT DESIGN ENGINEER: No RADIOLOGY DEPARTMENT: General X-ray: Exam(s) Completed: Lower Extremity X-Ray(s): Femur, Left PERIPHERAL IV DATA: Not applicable SIGNED BY: RT Luis(R) February 17, 2025 9:17 [facility]10-30-2025 NoteHNO ID: [id number] Author: RADHA LYNN MA Service: ? Author Type: Furnace Installer Helper Type: Progress Notes Filed: 02/12/2025 11:30 Note Text: Additional intake questions: Has the patient had fever, nausea, vomiting, diarrhea, constipation, fatigue for > 1 week? No Does the patient have a decreased appetite? No Does patient want to see a Journalism Instructor? No (yes to any of above refer patient to schedulers for dietitian appointment) ) Does patient have any new or increased numbness or tingling of extremities? No Is patient interested in fertility information? No Does patient need any prescription refills? No Does patient have an advanced directive in place? Yes, copies are in Epic Electronically Signed By: Radha Lynn, [facility]10-30-2025 NoteHNO ID: [id number] Author: NASEEM BARKSDALE MD Service: ? 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 Per [facility] recent neurology note from Marlene CRISTINA: Her 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 was removed on 07/10/23 following laparotomy for bowel obstruction followed by worsening symptoms. Her shunt was re inserted on 10/11/23 with Certas valve. At last visit, Chikis continued to struggle with mobility and requested valve be adjusted back to 7. Since adjustment, she has noticed some improvement in activity but has developed new onset headaches and N/V. CT brain showed her ventricles have again decompressed at 7 without acute ischemia or hemorrhage. Discussed in detail possible benefits and risks of 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 adjustment. After discussion with Chikis, she would like to undergo shunt adjustment. Certas valve shunt was adjusted from 7 to 8. Patient was diagnosed with bladder CA in April 2021. She had her bladder removed and had a urostomy placed. All year she was nauseated and vomiting. She had antibiotics x2 but symptoms did not improve. She was then found unresponsive at home. Was then found to have a fungal mass on her spine and ventriculomegaly. A 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 was placed. She later developed a 'twisted bowel' so they externalized the shunt and then ultimately removed it. She developed severe bilateral leg spasms post operatively. When she presented to Dr. Oconnor's office for post op follow up, her left foot was dragging so the shunt was replaced again- set at 6. She was adjusted to 7 due to low pressure symptoms. She over drained and was then adjusted to 8. She is currently taking posaconozole which is managed by ID (Dr. Mccarty). ID Does not want to stop the medication due to the concern for a fluid bubble in the cervical area. She is currently having botox injections in bilateral legs but does not feel that they are helpful at this time. She currently uses a standing wheelchair. Patient is living in a hotel at this time due to discharge from rehab center. 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 She presents today with her friend who is also a nurse. HPI Review of Systems Objective There were no vitals taken for this visit. 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 Pt seen and examined by Dr. Barksdale. All recommendations initiated by Dr. Barksdale. Portions of this visit have been documented by Jaguar RIBEIRO, RN Naseem Barksdale, [facility]09-26-2025 NoteHNO ID: [id number] Author: NOEL DANIELS MD Service: ? Author Type: Physician Type: Progress Notes Filed: 01/09/2025 13:46 Note Text: BOTULINUM TOXIN THERAPY Patient accompanied by : Self Current complaints: Spasticity and spasms Brief HPI: Chikis Tobar is a 58 year old right-handed female with past medical history of T1DM c/b DKA, urothelial carcinoma of the bladder s/p radical cystectomy and ileal conduit c/b SBO (Dec 2021), HTN, chronic sinusitis, asthma, fungal meningitis, myelitis and hydrocephalus status post 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 placement June 2022, externalization on 06/25/2023, removal 07/10/2023 and reimplantation on 10/15/2023. Patient experienced impaired mobility and ADLs after removal of shunt and noted minimal improvement in lower extremity function post shunt reimplantation. She was evaluated in [facility] spasticity clinic initially on 12/04/2023 for paraplegia and associated severe spasticity and flexor spasms. She was discharged home from [facility] rehab facility on 02/15/2024. She lives on her own in a ranch type house with all arrangement on the same level, She does transfers using a slide board at home. She received initial botulinum toxin injection on 01/11/2024 and reports to clinic today for next set of botulinum toxin A injections. History since last visit: Reports good benefit with Botox. Feel like she is due for next injection. LE spasms are less as compared to last time but continue to occur with change in position. She is considering Right AFO with PT to help with clearance of right foot. She was admitted to [facility] from 08/22/24-08/29/24 for Left femur fracture s/p surgical fixation. She was discharged to acute inpatient rehab at [facility]. Subsequently she went to a SNF where she didn't get a chance to work with rehab therapy satisfactorily. She is getting PT 2/week. She will at the facility till next week. -[facility] -Most recent botulinum toxin injection: 07/22/24 -Hospitalization/ER visit: No -New weakness or numbness: No -Fever or flu like symptoms : No -Ongoing antibiotics: Doxycycline for posterior -Change in bowel or bladder function: No -Other: Got a new wheelchair but not happy due to the height of the wheelchair Scheduled evaluation with spine surgery Follow up with Ortho completed, next follow up in 02/2025 - Anticoagulation/antiplatelet medications: Aspirin Spasticity treatment: -Medications: Baclofen 10 mg-10 mg - 20 mg -Botulinum toxin therapy: Yes- effective -Other/orthosis: No Patient goals: -reduce lower extremity spasms -achieved -Reduce discomfort/pain associated with spasms (achieved) -Improve participation in therapies (achieved) -Improve positioning in bed, wheelchair (achieved) -Improve mobility/transfers and ambulation (progressing) BT therapy effective? Yes - stiffness, spasms/cramps, active function and ease of care Side effects: No Spasm scale: 0=No spasm (Spasm severity 2) Pain related to the purpose of the visit: No 0 on a scale of 0 to 10 Patient Entered Data PROMIS No data to display Spasticity NRS 01/09/2025 12/16/2024 12/08/2024 07/22/2024 04/15/2024 -- Spasm Scale 1=Mild spasms induced by stimulation 1=Mild spasms induced by stimulation 1=Mild spasms induced by stimulation 1=Mild spasms induced by stimulation 2=Infrequent full spasms occuring less than once per hour Spasm Scale - Trendable Number 1 1 1 1 2 Spasm Scale No data to display Global Impression of Change No data to display Nutritional status: appetite , weight , swallowing - stable Driving issues: NA Safety concerns regarding living situations and safety at home: NA At risk for falling: Yes . slid down on the floor from wheelchair after falling asleep- no injury sustained Examination: BP 119/68 (BP Site: Right Arm, BP Position: Sitting) Pulse 83 Temp 36.4 ?C (97.6 ?F) (Temporal) Ht 167.6 cm (5' 6 ) Wt 78 kg (172 lb) BMI 27.76 kg/m? General: The patient is a well-nourished, well groomed who appears stated age. HEAD: Normocephalic EYE: -Appearance: Sclera nonicteric, PERRLA ENT: no rhinorrhea, MMM Lung: breathing unlabored in room air Skin: skin turgor is normal. Healed midline incision over anterior abdomen present. Left heel wound dressing and bandage present, No soakage or discharge. GI/: Insulin pump present over left anterior abdomen Ileal conduit with external collecting bag noted on right side draining clear urine. Extremity: edema noted in both lower extremities, reduced distal lower extremity edema Neuro: The patient was alert and oriented Articulated speech with intact comprehension Strength Right Left Shoulder abduction 4 5 Elbow flexion 5 5 Elbow extension 5 5 Wrist extension 5 5 Hip flexion 1+ 3+ Knee flexion 3+ 4 Knee extension 2+ 2+ Plantarflexion 2+ 4 Dorsiflexion 1 4 Strength: Bilateral FDS-FDP 5/5 Bilateral abductor digiti minimi 5 (more content not included)...[facility]09-17-2025 Progress note Author Sharan Dominguez [facility] HospitalNote Date/TimeSeptember 2024 11:23am [place] [address] Wound Center Provider Note Signed Patient: Chikis Tobar MR#: [id number] : 1965 Acct:[id number] Age/Sex: 59 / F Copies to: DO Sharan Goins, PROCUREMENT DIRECTOR~ HPI Date of Visit Date of Visit: Date of Service: 12/31/2024 Time of Service: 11:21 Narrative HPI: 11/26/2024-Chikis [facility] to [facility] wound center forevaluation and treatment of 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 This pressure injury has beenpresent for several months. We had previously been treating Chikis until she fell out of her wheelchair and sustained a distal femur fracture, and was subsequently transferred to [facility]. Upon discharge from there she was discharged to an SNF in [facility] andis now currently at an SNF in [facility]. Patient was recently evaluated by her primary care physician, Dr. Berumen, who felt that the pressure injury looked infected and did cover her for both MRSA and MSSA with ciprofloxacin 500 mg p.o. twice daily as well as cephalexin 500 mg p.o. 3 times daily x 10 days. Upon exam, shallow full-thickness pressure injury is comprisedof red, moist tissue. Periwound is dry and intact. There are no signs or symptoms of infection present on exam at today's visit, however I did encourage her to complete the entire course of antibiotic therapy as prescribed. We will plan to initiate Vashe cleanse, collagen silver, alginate, and bordered foam daily. Patient does have a fairamount of edema to the bilateral lower extremities. I also wrote for Dai wrap's to be applied dailyfrom the base of the toes to just below the knee. We will see Chikis back in our office in 2 weeks. 12/10/2024- Shelly presents to the office for follow-up evaluation and treatment of stage 3 pressure injury of the left posterior heel. Upon exam, the ulcer is nearly healed at today's visit, only 1 small pinpoint area remaining open. Tissue is red and moist. Periwound is dry and intact. No acute signsor symptoms of infection are present at today's visit. We will plan to initiate Vashe cleanse, collagen powder, alginate silver, bordered foam. Nursing staff at [place] will continue to perform the dressing changes. We will see Chikis back in our office in 2 to 3 weeks. 12/31/2024- Chikis presents to the office for follow-up evaluation and treatmentof chronic stage 3 pressure injury of the posterior aspect of the left heel. Upon exam, the ulcer is healed at today's visit, comprised entirely of epithelial tissue. I did recommend to continue to pad and protect the area withSkin-Prep and a bordered foam 3 times per week for the next 2 weeks, then may leave the areaopen to air. Shelly does have our office contact information shouldthe area re-open or should any future needs arise. 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 Ulcer of left heel Type 1 diabetes mellitus with diabetic peripheral angiopathy without gangrene Screening mammogram for breast cancer Medicare annual wellness visit, subsequent Type 1 diabetes mellitus with hyperglycemia Vitamin B12 deficiency 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 [facility] Asthma Problem List clean-up per request of Phys. [facility] Diabetes Problem List clean-up per request of Phys. [facility] Bladder cancer Problem List clean-up per request of Phys. [facility] Surgical History (Updated 12/26/24 @ 16:16 by Juliette Berumen DO) H/O colonoscopy (~09/21/21) Fracture, femur, distal (~08/22/24) History of total cystectomy Left fibular fracture (~09/2023) Left tibial fracture (~09/2023) Intramedullary nail/screws History of bowel resection (~06/2023) History of right oophorectomy S/P ventricular shunt placement Removal 06/2023 Status post ORIF of fracture of ankle History of open reduction and internal fixation (ORIF) procedure RIGHT ANKLE, HARDWARE REMOVED History of ileal conduit (~04/2021) Hx of hysterectomy Problem List clean-up per request of Phys. EHR [facility]mte Family History Father Heart disease Mother Hypertension Social History Smoking Status: Never smoker Substance Use Type: None Grafts History of Graft History of Graft?: No Exam Physical Exam Vital Signs: Temp Pulse Resp BP O2 Del Method 97.7 F 73 18 156/71 H Room Air 12/31/24 11:04 12/31/24 11:04 12/31/24 11:04 12/31/24 11:04 12/31/24 11:04 Const General: cooperative, comfortable, no acute distress and well groomed Nutritional Appearance: average body habitus Orientation: alert, awake and oriented x3 Lower/Upper Extremity Exam Vascular Exam-Edema Left Lower Extremity: Edema Type: Non-Pitting Vascular Exam-Pulses Left Brachial: Pulse Assessment Method: NIBP Left Dorsalis Pedis: Pulse Assessment Method: Doppler Left Posterior Tibial: Pulse Assessment Method: Doppler Objective Meds/Allergies Home Medications acetaminophen 325 mg tablet 325 mg PO Q6HR 07/16/23 [History Confirmed 12/26/24] posaconazole 300 mg oral suspension,delayed release in a packet (Noxafil) 300 mgPO DAILY 07/16/23 [History Confirmed 12/26/24] insulin aspart U-100 100 unit/mL subcutaneous solution See Rx Instructions .Route .COMPLEX #30 mL 03/11/24 [Rx Confirmed 12/26/24] bumetanide 1 mg tablet See Rx Instructions .Route .COMPLEX #60 tabs 04/14/24 [Rx Confirmed 12/26/24] hydrocortisone 2.5 % topical cream with perineal applicator 1 applic CO BID-QID PRN hemorrhoids 10 days #30 grams 06/20/24 [Rx Confirmed 12/26/24] Wheelchair (w/c) #1 ea 07/31/24 [Rx Confirmed 12/26/24] Lactobacillus acidophilus 10 mg PO DAILY 11/19/24 [History Confirmed 12/26/24] aspirin 81 mg tablet 81 mg PO DAILY 11/19/24 [History Confirmed 12/26/24] baclofen 10 mg tablet 10 mg PO DAILY 11/19/24 [History Confirmed 12/26/24] cholecalciferol (vitamin D3) 25 mcg (1,000 unit) capsule 25 mcg PO DAILY 11/19/24 [History Confirmed 12/26/24] docusate sodium 100 mg capsule (Colace) 100 mg PO DAILY 11/19/24 [History Confirmed 12/26/24] hydrocodone 10 mg-acetaminophen 325 mg tablet 1 tab PO Q4HR PRN pain 11/19/24 [History Confirmed 12/26/24] metoprolol succinate 100 mg tablet,extended release 24 hr 50 mg PO BID 11/19/24 [History Confirmed 12/26/24] ondansetron HCl 4 mg tablet 4 mg PO Q6HR 11/19/24 [History Confirmed 12/26/24] doxycycline hyclate 100 mg capsule 100 mg PO DAILY 30 days #30 caps 12/26/24 [Rx Confirmed 12/31/24] Allergies cyclobenzaprine (From Flexeril) Allergy (Unknown, Verified 12/26/24 11:27) Rash, hives meperidine (From Demerol) Allergy (Unknown, Verified 12/26/24 11:27) Dizziness, rash orphenadrine (Norflex) Allergy (Unknown, Verified 12/26/24 11:27) hives midazolam (From Versed) Allergy (Verified 12/26/24 11:27) Agitated Wound/Ulcer Left Heel: Type: Pressure/Injury Ulcer Pressure Ulcer/Injury Staging: Stage 3 Length (cm): 0 Width (cm): 0 Depth (cm): 0 CM Sq: 0.000 Surrounding Tissue Appearance: Ethnic/Norm Surrounding Tissue Temp: Warm Drainage Amount: None Drainage Odor: No Odor Results Height: 5 ft 6 in Weight: 72.575 kg Body Mass Index: 25.8 Assessment/Plan Assessment/Plan (1) Pressure injury of left heel, stage 3: Code(s): L89.623 - Pressure ulcer of left heel, stage 3 Plan: Healed 12/31/2024 (2) Type 1 diabetes mellitus with diabetic peripheral angiopathy without gangrene: Code(s): E10.51 - Type 1 diabetes mellitus with diabetic peripheral angiopathy without gangrene (3) Lymphedema: Code(s): I89.0 - Lymphedema, not elsewhere classified (4) Chronic venous insufficiency: Code(s): I87.2 - Venous insufficiency (chronic) (peripheral) (5) Impaired mobility and ADLs: Code(s): Z74.09 - Other reduced mobility; Z78.9 - Other specified health status Plan See orders and HPI. Time spent with patient Time Spent With Patient (min): 10 Dictated By: Sharan Dominguez APRN DD/ 1121 Signed By: <Electronically signed by STEVEN Dominguez> 12/31/24 1[address] [facility] Work Phone: [phone] [place] [address] Wound Center Provider Note Signed Patient: Chikis Tobar MR#: [id number] : 1965 Acct:[id number] Age/Sex: 59 / F Copies to: DO Sharan Goins APRN~ HPI Date of Visit Date of Visit: Date of Service: 12/31/2024 Time of Service: 11:21 Narrative HPI: 11/26/2024-Chikis presents to [facility] wound center forevaluation and treatment of 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 This pressure injury has beenpresent for several months. We had previously been treating Chikis until she fell out of her wheelchair and sustained a distal femur fracture, and was subsequently transferred to [facility]. Upon discharge from there she was discharged to an SNF in [facility] andis now currently at an SNF in [facility]. Patient was recently evaluated by her primary care physician, Dr. Berumen, who felt that the pressure injury looked infected and did cover her for both MRSA and MSSA with ciprofloxacin 500 mg p.o. twice daily as well as cephalexin 500 mg p.o. 3 times daily x 10 days. Upon exam, shallow full-thickness pressure injury is comprisedof red, moist tissue. Periwound is dry and intact. There are no signs or symptoms of infection present on exam at today's visit, however I did encourage her to complete the entire course of antibiotic therapy as prescribed. We will plan to initiate Vashe cleanse, collagen silver, alginate, and bordered foam daily. Patient does have a fairamount of edema to the bilateral lower extremities. I also wrote for Dai wrap's to be applied dailyfrom the base of the toes to just below the knee. We will see Chikis back in our office in 2 weeks. 12/10/2024- Shelly presents to the office for follow-up evaluation and treatment of stage 3 pressure injury of the left posterior heel. Upon exam, the ulcer is nearly healed at today's visit, only 1 small pinpoint area remaining open. Tissue is red and moist. Periwound is dry and intact. No acute signsor symptoms of infection are present at today's visit. We will plan to initiate Vashe cleanse, collagen powder, alginate silver, bordered foam. Nursing staff at [place] will continue to perform the dressing changes. We will see Chikis back in our office in 2 to 3 weeks. 12/31/2024- Chikis presents to the office for follow-up evaluation and treatmentof chronic stage 3 pressure injury of the posterior aspect of the left heel. Upon exam, the ulcer is healed at today's visit, comprised entirely of epithelial tissue. I did recommend to continue to pad and protect the area withSkin-Prep and a bordered foam 3 times per week for the next 2 weeks, then may leave the areaopen to air. Shelly does have our office contact information shouldthe area re-open or should any future needs arise. 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 Ulcer of left heel Type 1 diabetes mellitus with diabetic peripheral angiopathy without gangrene Screening mammogram for breast cancer Medicare annual wellness visit, subsequent Type 1 diabetes mellitus with hyperglycemia Vitamin B12 deficiency 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 [facility] Ast[facility] Problem List clean-up per request of Phys. [facility] Diabetes Problem List clean-up per request of Phys. [facility] Bladder cancer Problem List clean-up per request of Phys. [facility] Surgical History (Updated 12/26/24 @ 16:16 by Juliette Berumen DO) H/O colonoscopy (~09/21/21) Fracture, femur, distal (~08/22/24) History of total cystectomy Left fibular fracture (~09/2023) Left tibial fracture (~09/2023) Intramedullary nail/screws History of bowel resection (~06/2023) History of right oophorectomy S/P ventricular shunt placement Removal 06/2023 Status post ORIF of fracture of ankle History of open reduction and internal fixation (ORIF) procedure RIGHT ANKLE, HARDWARE REMOVED History of ileal conduit (~04/2021) Hx of hysterectomy Problem List clean-up [facility] of [facility]. [facility] Family History Father Heart disease Mother Hypertension Social History Smoking Status: Never smoker Substance Use Type: None Grafts History of Graft History of Graft?: No Exam Physical Exam Vital Signs: Temp Pulse Resp BP O2 Del Method 97.7 F 73 18 156/71 H Room Air 12/31/24 11:04 12/31/24 11:04 12/31/24 11:04 12/31/24 11:04 12/31/24 11:04 Const General: cooperative, comfortable, no acute distress and well groomed Nutritional Appearance: average body habitus Orientation: alert, awake and oriented x3 Lower/Upper Extremity Exam Vascular Exam-Edema Left Lower Extremity: Edema Type: Non-Pitting Vascular Exam-Pulses Left Brachial: Pulse Assessment Method: NIBP Left Dorsalis Pedis: Pulse Assessment Method: Doppler Left Posterior Tibial: Pulse Assessment Method: Doppler Objective Meds/Allergies Home Medications acetaminophen 325 mg tablet 325 mg PO Q6HR 07/16/23 [History Confirmed 12/26/24] posaconazole 300 mg oral suspension,delayed release in a packet (Noxafil) 300 mgPO DAILY 07/16/23 [History Confirmed 12/26/24] insulin aspart U-100 100 unit/mL subcutaneous solution See Rx Instructions .Route .COMPLEX #30 mL 03/11/24 [Rx Confirmed 12/26/24] bumetanide 1 mg tablet See Rx Instructions .Route .COMPLEX #60 tabs 04/14/24 [Rx Confirmed 12/26/24] hydrocortisone 2.5 % topical cream with perineal applicator 1 applic CO BID-QID PRN hemorrhoids 10 days #30 grams 06/20/24 [Rx Confirmed 12/26/24] Wheelchair (w/c) #1 ea 07/31/24 [Rx Confirmed 12/26/24] Lactobacillus acidophilus 10 mg PO DAILY 11/19/24 [History Confirmed 12/26/24] aspirin 81 mg tablet 81 mg PO DAILY 11/19/24 [History Confirmed 12/26/24] baclofen 10 mg tablet 10 mg PO DAILY 11/19/24 [History Confirmed 12/26/24] cholecalciferol (vitamin D3) 25 mcg (1,000 unit) capsule 25 mcg PO DAILY 11/19/24 [History Confirmed 12/26/24] docusate sodium 100 mg capsule (Colace) 100 mg PO DAILY 11/19/24 [History Confirmed 12/26/24] hydrocodone 10 mg-acetaminophen 325 mg tablet 1 tab PO Q4HR PRN pain 11/19/24 [History Confirmed 12/26/24] metoprolol succinate 100 mg tablet,extended release 24 hr 50 mg PO BID 11/19/24 [History Confirmed 12/26/24] ondansetron HCl 4 mg tablet 4 mg PO Q6HR 11/19/24 [History Confirmed 12/26/24] doxycycline hyclate 100 mg capsule 100 mg PO DAILY 30 days #30 caps 12/26/24 [Rx Confirmed 12/31/24] Allergies cyclobenzaprine (From Flexeril) Allergy (Unknown, Verified 12/26/24 11:27) Rash, hives meperidine (From Demerol) Allergy (Unknown, Verified 12/26/24 11:27) Dizziness, rash orphenadrine (Norflex) Allergy (Unknown, Verified 12/26/24 11:27) hives midazolam (From Versed) Allergy (Verified 12/26/24 11:27) Agitated Wound/Ulcer Left Heel: Type: Pressure/Injury Ulcer Pressure Ulcer/Injury Staging: Stage 3 Length (cm): 0 Width (cm): 0 Depth (cm): 0 CM Sq: 0.000 Surrounding Tissue Appearance: Ethnic/Norm Surrounding Tissue Temp: Warm Drainage Amount: None Drainage Odor: No Odor Results Height: 5 ft 6 in Weight: 72.575 kg Body Mass Index: 25.8 Assessment/Plan Assessment/Plan (1) Pressure injury of left heel, stage 3: Code(s): L89.623 - Pressure ulcer of left heel, stage 3 Plan: Healed 12/31/2024 (2) Type 1 diabetes mellitus with diabetic peripheral angiopathy without gangrene: Code(s): E10.51 - Type 1 diabetes mellitus with diabetic peripheral angiopathy without gangrene (3) Lymphedema: Code(s): I89.0 - Lymphedema, not elsewhere classified (4) Chronic venous insufficiency: Code(s): I87.2 - Venous insufficiency (chronic) (peripheral) (5) Impaired mobility and ADLs: Code(s): Z74.09 - Other reduced mobility; Z78.9 - Other specified health status Plan See orders and HPI. Time spent with patient Time Spent With Patient (min): 10 Dictated By: Sharan Dominguez APRN DD/ 20 Signed By: 12/31/24 1123 [facility]09-09-2025 NoteHNO ID: [id number] Author: ASTRID NAVA MD Service: ? Author Type: Physician Type: Progress Notes Filed: 12/23/2024 15:34 Note Text: ASSESSMENT/PLAN: 1. Combined forms of age-related cataract of right eye - ICD9: 366.19, ICD10: H25.811 (primary diagnosis) 2. Combined forms of age-related cataract of left eye - ICD9: 366.19, ICD10: H25.812 CORNEAL TOPOGRAPHY: Less than one diopter, regular, both eyes Mac OCT: Abnormal foveal contour, mild Epiretinal membrane OU; partial Posterior vitreous detachment OU; no Subretinal fluid in both eyes; right eye (+) intraretinal fluid, left eye no intraretinal fluid Cataract Presurgical Documentation Cataract: Both eyes (OU) Current Visual Acuity Right Eye SC: 20/40 Left Eye SC: 20/30 Best Corrected Right Eye: 20/30 Best Corrected Left Eye: 20/25 Glare Testing: Right Eye High 20/150 Left Eye High 20/70 Visual Function: Chikis Tobar states that the decline in vision from the cataract impedes her abilities as listed in the HPI, as well as other activities of daily living. Chikis Tobar has confirmed that she is no longer able to function adequately on a day-to-day basis because of her current visual condition. Further, it is my medical opinion that the cataract is the primary cause, or at least a significantly contributory cause of her visual dysfunction. With uncomplicated cataract surgery and lens implantation, it is my expectation that her visual function and quality of life will improve, significantly. The risks, benefits, alternatives, personnel and complications of cataract surgery with lens implantation were discussed with Chikis Tobar in detail. she appeared to understand and asked that I proceed with plans for surgery. Offered Phacoemulsification cataract extraction with insertion of intraocular lens by Dr. Nava OS / OD. Patient wishes to proceed with surgery. All questions were answered. A-scan to be performed pre-operatively. Referred by Dr. Barbour, Thank you for your kind referral! Allergies: see list - Aim: [place] OU. Patient understands the need for glasses for all near and intermediate vision including reading and computer work. -Has patient had prior refractive surgery? No - Anesthesia: Topical with MAC - Diabetes Mellitus Yes. Plan to treat with topical NSAIDs for 10 days after cataract surgery to reduce the risk of postoperative diabetic macular edema - Blood thinner use Yes - Flomax/alpha-dianna? No - Able to lie supine Yes - Please administer Propofol. Patient is allergic to Versed. She states that after a prior surgery at [facility], it took 7 people to hold her down and she was told that it was due to the Versed that had been given. Note was sent to Dr. Barrow, anesthesiologist at [facility]. - Happy for prayer Yes - Warned of IOL-induced photopsias Yes - Advised there is no guarantee of freedom from glasses Yes; -Discussed possible increased sensitivity and starbursting when exposed to flickering lights such as LED and fluorescent lights after cataract surgery, which usually decreases with time. - Discussed toric Intraocular lens not covered by insurance Yes $1400 per eye - Toric candidate: OfferToric lens if patient qualifies by Ultrasound measurements. Without the toric IOL, patient may still need to wear glasses to correct residual astigmatism at all distances. Even with toric IOL, we cannot guarantee no residual astigmatism. - Contact lens use No - e-scribed eye drops -She has increased risk of postoperative corneal edema due to pre-existing corneal guttatae; plan to use copious amounts of Viscoat during her cataract surgeries. - Literature regarding cataract and cataract extraction by phacoemulsification offered. - Co manage with Dr. Barbour 3. Epiretinal membrane (ERM) of both eyes - ICD9: 362.56, ICD10: H35.373 -Normal Amsler -Monitor with home Amsler -If she ever develops metamorphopsia, then consider referral to a retina specialist for consideration of pars plana vitrectomy with epiretinal membrane peeling to alleviate symptomatic metamorphopsia and help improve vision. 4. Posterior vitreous detachment of both eyes - ICD9: 379.21, ICD10: H43.813 -Floaters will persist after cataract surgery. -Call/come in to us or to Dr. Barbour for prompt evaluation should there be increasing floaters, new flashing lights, or decreasing peripheral vision in either eye at any time. 5. Type 1 diabetes mellitus with inactive proliferative diabetic retinopathy OU, s/p focal laser and Panretinal laser photocoagulation OU done in [place] years ago Macular OCT today shows trace intraretinal fluid OD; recommend retina MD evaluation here, which can be done after cataract surgery. Discussed guarded visual prognosis with cataract surgery due to underlying focal laser scars. 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 Combined forms of age-related cataract of right eye - ICD9: 366.19, ICD10: H25.811 (primary diagnosis) 2. Combined forms of age-related cataract of left eye - ICD9: 366.19, ICD10: H25.812 CORNEAL TOPOGRAPHY: Less than one diopter, regular, both eyes Mac OCT: Abnormal foveal contour, mild Epiretinal membrane OU; partial Posterior vitreous detachment OU; no Subretinal fluid in both eyes; right eye (+) intraretinal fluid, left eye no intraretinal fluid Cataract Presurgical Documentation Cataract: Both eyes (OU) Current Visual Acuity Right Eye SC: 20/40 Left Eye SC: 20/30 Best Corrected Right Eye: 20/30 Best Corrected Left Eye: 20/25 Glare Testing: Right Eye High 20/150 Left Eye High 20/70 Visual Function: Chikis Tobar states that the decline in vision from the cataract impedes herabilities as listed in the HPI, as well as other activities of daily living. Chikis Tobar has confirmed that she is no longer able to function adequately on a day-to-day basis because of her current visual condition. Further, it is my medical opinion that the cataract is the primary cause, or at least a significantly contributory cause of her visual dysfunction. With uncomplicated cataract surgery and lens implantation, it is my expectation that her visual function and quality of life will improve, significantly. The risks, benefits, alternatives, personnel and complications of cataract surgery with lens implantation were discussed with Chikis Tobar in detail. she appeared to understand and asked that Iproceed with plans for surgery. Offered Phacoemulsification cataract extraction with insertion of intraocular lens by Dr. Nava OS/ OD. Patient wishes to proceed with surgery. All questions were answered. A-scan to be performed pre-operatively. Referred by Dr. Barbour, Thank you for your kind referral! Allergies: see list - Aim: [place] OU. Patient understands the need for glasses for all near and intermediate vision including reading and computer work. -Has patient had prior refractive surgery? No - Anesthesia: Topical with MAC - Diabetes Mellitus Yes. Plan to treat with topical NSAIDs for 10 days after cataract surgery to reduce the risk of postoperative diabetic macular edema - Blood thinner use Yes - Flomax/alpha-dianna? No - Able to lie supine Yes - Please administer Propofol. Patient is allergic to Versed. She states that after a prior surgery at [facility], it took 7 people to hold her down and she was told that it was due to the Versed that had been given. Note was sent to Dr. Barrow, anesthesiologist at [facility]. - Happy for prayer Yes - Warned of IOL-induced photopsias Yes - Advised there is no guarantee of freedom from glasses Yes; -Discussed possible increased sensitivity and starbursting when exposed to flickering lights such as LED and fluorescent lights after cataract surgery, which usually decreases with time. - Discussed toric Intraocular lens not covered by insurance Yes $1400 per eye - Toric candidate: OfferToric lens if patient qualifies by Ultrasound measurements. Without the toric IOL, patient may still need to wear glasses to correct residual astigmatism at all distances. Even with toric IOL, we cannot guarantee no residual astigmatism. - Contact lens use No - e-scribed eye drops -She has increased risk of postoperative corneal edema due to pre-existing corneal guttatae; plan to use copious amounts of Viscoat during her cataract surgeries. - Literature regarding cataract and cataract extraction by phacoemulsification offered. - Co manage with Dr. Barbour 3. Epiretinal membrane (ERM) of both eyes - ICD9: 362.56, ICD10: H35.373 -Normal Amsler -Monitor with home Amsler -If she ever develops metamorphopsia, then consider referral to a retina specialist for consideration of pars plana vitrectomy with epiretinal membrane peeling to alleviate symptomatic metamorphopsiaand help improve vision. 4. Posterior vitreous detachment of both eyes - ICD9: 379.21, ICD10: H43.813 -Floaters will persist after cataract surgery. -Call/come in to us or to Dr. Barbour for prompt evaluation should there be increasing floaters, new flashing lights, or decreasing peripheral vision in either eye at any time. 5. Type 1 diabetes mellitus with inactive proliferative diabetic retinopathy OU, s/p focal laser and Panretinal laser photocoagulation OU done in [place] years ago Macular OCT today shows trace intraretinal fluid OD; recommend retina MD evaluation here, which canbe done after cataract surgery. Discussed guarded visual prognosis with cataract surgery due to underlying focal laser scars. 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 offered cataract Surgery OS likely 12/31 and OD likely 01/07, co-managed with Dr. Barbour. Needs retina MD evaluation here after her cataract surgery. Copy of today's visit note was sent to Dr. Barbour. Return for PAT, ultrasound, Intraocular lens calculations, and surgery. Astrid Nava MD The documentation for this note was completed by DWAYNE Jessica acting as a scribe for, and inthe presence of, Dr. Astrid Nava M.D. 12/23/24 The documentation recorded by the scribe accurately reflects the service I personally performed andthe decisions made by me. I have confirmed and edited as necessary the relevant HPI, ophthalmic history, ROS, and the neuro exam findings as obtained by others. I have seen and examined Chikis Tobar. I have discussed the case and the management of this patient's care with the Resident/Fellow, if applicable. I also have reviewed and agree with the assessment and plan as stated above and agree withall of its relevant components. Astrid Nava MD 12/23/24 documented in this encounterThe [facility]08-29-[facility]25 Telephone encounter Note * Telephone Encounter - Clare Lin [facility] - 12/12/2024 2:48 PM EDT Images from the original note were not included. DEEPAK Maloney [facility]08-29-2025 Miscellaneous Notes* Telephone Encounter - Clare Lin [facility] - 12/12/2024 2:48 PM EDT Images from the original note were not included. DEEPAK Maloney * Telephone Encounter - Clare Lin [facility] - 12/12/2024 12:40 PM EDT Prior authorization documentation Prior authorization process has been initiated for the following medication: Medication: Cresemba Dosage: 186mg Refills: 2 Provider: Bibiana The prior authorization has been: PENDED. (Gordon: [email or web address]) JONNIE Rx #: [id number] Insurance Company Name: [place] Patient ID number: [id number] Pharmacy Name: [facility] Telephone number: [phone] documented in this encounterThe [facility]08-29-2025 Telephone encounter Note * Telephone Encounter - Clare Lin [facility] - 12/12/2024 12:40 PM EDT Prior authorization documentation Prior authorization process has been initiated for the following medication: Medication: Cresemba Dosage: 186mg Refills: 2 Provider: Bibiana The prior authorization has been: PENDED. (Gordon: [email or web address]) JONNIE Rx #: [id number] Insurance Company Name: [place] Patient ID number: [id number] Pharmacy Name: [facility] Telephone number: [phone] [facility]08-28-2025 Telephone encounter Note* Telephone Encounter - Susanna Carranza PA-C - 12/11/2024 1:25 PM EDT Next available New patient Susanna Carranza AND Dr. Barksdale (Shamir appt about 4 weeks after my appt bc I am likely going to order more testing for her. No imaging. Spinal Arachnoid cyst, LE weakness [facility]08-28-2025 Miscellaneous Notes* Telephone Encounter - Susanna Carranza PA-C - 12/11/2024 1:25 PM EDT Next available New patient Susanna Tere AND Dr. Barksdale (Shamir appt about 4 weeks after my appt bc I am likely going to order more testing for her. No imaging. Spinal Arachnoid cyst, LE weakness documented in this encounterThe [facility] System08-28-2025 NoteHNO ID: [id number] Author: DARYL MOREJON MD Service: ? Author Type: Physician Type: Progress Notes Filed: 12/12/2024 13:40 Note Text: Orthopaedic Surgery Clinic Established Visit Patient Date of : 1965 Date of Surgery: 08/23/2024 Procedure Performed: Left Femur IMN History: Patient presents to clinic 12 weeks postoperatively from the above procedure, she denies wound issues or drainage and is doing well today. She states she has no pain with weight bearing. She has been unable to ambulate with physical therapy due to limited staff at her rehab facility and plans to begin outpatient physical therapy next week. Physical Exam: General: No acute distress, alert and oriented x3 Left Lower Extremity: Skin:Incision well healed without any evidence of infection. No erythema, drainage or expressible discharge Vascular: Foot warm and well perfused with brisk capillary refill and Palpable DP/PT pulse Neuro: Sensation intact in saphenous/sural/deep peroneal/superficial peroneal/tibial nerve distribution and 5/5 EHL/TA/GSC Musculoskeletal: No tenderness to palpation over fracture, able to perform SLR Imaging: I personally reviewed xrays of L and discussed with patient: Demonstrate maintained fracture alignment with no interval displacement, intact hardware, healed fx Assessment and Plan: Patient is a 59 year old female 12 weeks s/p left femur IMN. -Patient is doing well postoperatively -Patient did not require a refill of pain medications today -Progress with therapy as tolerated -Weightbearing: Weight bearing as tolerated LLE -Follow up: 3 months Daryl Morejon MD [id number] History of Present illness Narrative* Daryl Morejon MD - 12/11/2024 10:44 AM EDT Orthopaedic Surgery Clinic Established Visit Patient Date of : 1965 Date of Surgery: 08/23/2024 Procedure Performed: Left Femur IMN History: Patient presents to clinic 12 weeks postoperatively from the above procedure, she denies wound issues or drainage and is doing well today. She states she has no pain with weight bearing. Shehas been unable to ambulate with physical therapy due to limited staff at her rehab facility and plans to begin outpatient physical therapy next week. Physical Exam: General: No acute distress, alert and oriented x3 Left Lower Extremity: Skin:Incision well healed without any evidence of infection. No erythema, drainage or expressible discharge Vascular: Foot warm and well perfused with brisk capillary refill and Palpable DP/PT pulse Neuro: Sensation intact in saphenous/sural/deep peroneal/superficial peroneal/tibial nerve distribution and 5/5 EHL/TA/GSC Musculoskeletal: No tenderness to palpation over fracture, able to perform SLR Imaging: I personally reviewed xrays of L and discussed with patient: Demonstrate maintained fracture alignment with no interval displacement, intact hardware, healed fx Assessment and Plan: Patient is a 59 year old female 12 weeks s/p left femur IMN. -Patient is doing well postoperatively -Patient did not require a refill of pain medications today -Progress with therapy as tolerated -Weightbearing: Weight bearing as tolerated LLE -Follow up: 3 months Daryl Morejon MD Orthopaedic Trauma Surgery documented in this encounterThe [facility]08-28-2025 History of Present illness Narrative* Charleen Moore, RT(R) - 12/11/2024 9:40 AM EDT Radiology Service Progress Note PATIENT NAME: Chikis Tobar DATE OF SERVICE: December 11, 2024 TIME: 1:40 PM PATIENT IDENTITY VERIFICATION COMPLETED USING TWO [...] PATIENT PRESENTS WITH AN IMPLANTABLE OR ATTACHED AIRCRAFT DESIGN ENGINEER: No RADIOLOGY DEPARTMENT: General X-ray: Exam(s) Completed: Lower Extremity X- Ray(s): Femur, Left PERIPHERAL IV DATA: Not applicable SIGNED BY: LISY Camarillo) December 11, 2024 1:40 PM documented in this encounterThe [facility]08-28-2025 NoteHNO ID: [id number] Author: CHARLEEN MOORE RT (R) Service: Radiology Author Type: Rooming House Keeper Type: Progress Notes Filed: 12/11/2024 13:40 Note Text: Radiology Service Progress Note PATIENT NAME: Chikis Tobar DATE OF SERVICE: December 11, 2024 TIME: 1:40 PM PATIENT IDENTITY VERIFICATION COMPLETED USING TWO (2) IDENTIFIERS: Name and Date of confirmed by patient verbally. FALL SCREENING: Has the patient had 2 falls in the last year or 1 fall with injury or currently using an Ambulatory Assistive Device (Walker, Cane, Wheelchair, Crutches, etc.)? No PATIENT GENDER DATA: Assigned female at . status: : No status: NO. PATIENT RELEVANT IMPLANT DATA REVIEWED: Yes PATIENT PRESENTS WITH AN IMPLANTABLE OR ATTACHED AIRCRAFT DESIGN ENGINEER: No RADIOLOGY DEPARTMENT: General X-ray: Exam(s) Completed: Lower Extremity X-Ray(s): Femur, Left PERIPHERAL IV DATA: Not applicable SIGNED BY: LISY Camarillo) December 11, 2024 1:40 [facility]08-27-2025 Progress note Author Sharan Dominguez [facility] Date/TimeAugust 2024 11:22am [place] [address] Wound Center Provider Note Signed Patient: Chikis Tobar MR#: [id number] : 1965 Acct:[id number] Age/Sex: 59 / F Copies to: DO Sharan Goins APRN~ HPI Date of Visit Date of Visit: Date of Service: 12/10/2024 Time of Service: 11:20 Narrative HPI: 11/26/2024-Chikis presents to [facility] wound center forevaluation and treatment of 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 This pressure injury has beenpresent for several months. We had previously been treating Chikis until she fell out of her wheelchair and sustained a distal femur fracture, and was subsequently transferred to [facility]. Upon discharge from there she was discharged to an SNF in [facility] andis now currently at an SNF in [facility]. Patient was recently evaluated by her primary care physician, Dr. Berumen, who felt that the pressure injury looked infected and did cover her for both MRSA and MSSA with ciprofloxacin 500 mg p.o. twice daily as well as cephalexin 500 mg p.o. 3 times daily x 10 days. Upon exam, shallow full-thickness pressure injury is comprisedof red, moist tissue. Periwound is dry and intact. There are no signs or symptoms of infection present on exam at today's visit, however I did encourage her to complete the entire course of antibiotic therapy as prescribed. We will plan to initiate Vashe cleanse, collagen silver, alginate, and bordered foam daily. Patient does have a fairamount of edema to the bilateral lower extremities. I also wrote for Dai wrap's to be applied dailyfrom the base of the toes to just below the knee. We will see Chikis back in our office in 2 weeks. 12/10/2024- Shelly presents to the office for follow-up evaluation and treatment of stage III pressure injury of the left posterior heel. Upon exam, the ulcer is nearly healed at today's visit, only 1 small pinpoint area remaining open. Tissue is red and moist. Periwound is dry and intact. No acute signs or symptoms of infection are present at today's visit. We will plan to initiate Vashe cleanse, collagen powder, alginate silver, bordered foam. Nursing staff at [place] will continue to perform the dressing changes. We will see Chikis back in our office in 2 to 3 weeks. 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 Ulcer of left heel Type 1 diabetes mellitus with diabetic peripheral angiopathy without gangrene Screening mammogram for breast cancer Medicare annual wellness visit, subsequent Type 1 diabetes mellitus with hyperglycemia Vitamin B12 deficiency 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 List clean-up per request of Phys. [facility] Diabetes Problem List clean-up per request of Phys. [facility] Bladder cancer Problem List clean-up per request of Phys. EHR [facility] Surgical History Fracture, femur, distal (~08/22/24) History of total cystectomy Left fibular fracture (~09/2023) Left tibial fracture (~09/2023) Intramedullary nail/screws History of bowel resection (~06/2023) History of right oophorectomy S/P ventricular shunt placement Removal 06/2023 Status post ORIF of fracture of ankle History of open reduction and internal fixation (ORIF) procedure RIGHT ANKLE, HARDWARE REMOVED History of ileal conduit (~04/2021) Hx of hysterectomy Problem List clean-up per request of Phys. [facility] Family History Father Heart disease Mother Hypertension Social History Smoking Status: Never smoker Substance Use Type: None Grafts History of Graft History of Graft?: No Exam Physical Exam Vital Signs: Temp Pulse Resp BP O2 Del Method 98.4 F 77 18 163/79 H Room Air 12/10/24 11:09 12/10/24 11:09 12/10/24 11:09 12/10/24 11:09 12/10/24 11:09 Const General: cooperative, comfortable, no acute distress and well groomed Nutritional Appearance: average body habitus Orientation: alert, awake and oriented x3 Lower/Upper Extremity Exam Vascular Exam-Edema Left Lower Extremity: Edema Type: Non-Pitting Vascular Exam-Pulses Left Brachial: Pulse Assessment Method: NIBP Left Dorsalis Pedis: Pulse Assessment Method: Doppler Left Posterior Tibial: Pulse Assessment Method: Doppler Objective Meds/Allergies Home Medications acetaminophen 325 mg tablet 325 mg PO Q6HR 07/16/23 [History Confirmed 11/26/24] posaconazole 300 mg oral suspension,delayed release in a packet (Noxafil) 300 mgPO DAILY 07/16/23 [History Confirmed 11/26/24] insulin aspart U-100 100 unit/mL subcutaneous solution See Rx Instructions .Route .COMPLEX #30 mL 03/11/24 [Rx Confirmed 11/26/24] bumetanide 1 mg tablet See Rx Instructions .Route .COMPLEX #60 tabs 04/14/24 [Rx Confirmed 11/26/24] hydrocortisone 2.5 % topical cream with perineal applicator 1 applic CO BID-QID PRN hemorrhoids 10 days #30 grams 06/20/24 [Rx Confirmed 11/26/24] Wheelchair (w/c) #1 ea 07/31/24 [Rx Confirmed 11/26/24] Lactobacillus acidophilus 10 mg PO DAILY 11/19/24 [History Confirmed 11/26/24] aspirin 81 mg tablet 81 mg PO DAILY 11/19/24 [History Confirmed 11/26/24] baclofen 10 mg tablet 10 mg PO DAILY 11/19/24 [History Confirmed 11/26/24] cholecalciferol (vitamin D3) 25 mcg (1,000 unit) capsule 25 mcg PO DAILY 11/19/24 [History Confirmed 11/26/24] docusate sodium 100 mg capsule (Colace) 100 mg PO DAILY 11/19/24 [History Confirmed 11/26/24] hydrocodone 10 mg-acetaminophen 325 mg tablet 1 tab PO Q4HR PRN pain 11/19/24 [History Confirmed 11/26/24] metoprolol succinate 100 mg tablet,extended release 24 hr 50 mg PO BID 11/19/24 [History Confirmed 11/26/24] ondansetron HCl 4 mg tablet 4 mg PO Q6HR 11/19/24 [History Confirmed 11/26/24] Allergies cyclobenzaprine (From Flexeril) Allergy (Unknown, Verified 11/26/24 08:08) Rash, hives meperidine (From Demerol) Allergy (Unknown, Verified 11/26/24 08:08) Dizziness, rash orphenadrine (Norflex) Allergy (Unknown, Verified 11/26/24 08:08) hives midazolam (From Versed) Allergy (Verified 11/26/24 08:08) Agitated Wound/Ulcer Left Heel: Type: Pressure/Injury Ulcer Pressure Ulcer/Injury Staging: Stage 3 Bed Appearance: Beefy Red and [place] Percent of Wound Bed Granulated/Red: 100 Percent of Devitalized: 0 Length (cm): 0.3 Width (cm): 0.2 Depth (cm): 0.1 CM Sq: 0.060 Surrounding Tissue Appearance: Ethnic/Norm Surrounding Tissue Temp: Warm Drainage Amount: Moderate Drainage Description: Serosanguineous Drainage Odor: No Odor Results Height: 5 ft 6 in Weight: 72.575 kg Body Mass Index: 25.8 Assessment/Plan Assessment/Plan (1) Pressure injury of left heel, stage 3: Code(s): L89.623 - Pressure ulcer of left heel, stage 3 (2) Type 1 diabetes mellitus with diabetic peripheral angiopathy without gangrene: Code(s): E10.51 - Type 1 diabetes mellitus with diabetic peripheral angiopathy without gangrene (3) Lymphedema: Code(s): I89.0 - Lymphedema, not elsewhere classified (4) Chronic venous insufficiency: Code(s): I87.2 - Venous insufficiency (chronic) (peripheral) (5) Impaired mobility and ADLs: Code(s): Z74.09 - Other reduced mobility; Z78.9 - Other specified health status Plan See orders and HPI. Time spent with patient Time Spent With Patient (min): 12 Dictated By: Sharan Dominguez APRN DD/ 19 Signed By: <Electronically signed by STEVEN Dominguez> 12/10/24 [facility] Work Phone: [phone]) 680-930608-27-20[place] [address] Wound Center Provider Note Signed Patient: Chikis Tobar MR#: [id number] : 1965 Acct:[id number] Age/Sex: 59 / F Copies to: Juliette Berumen DO Sharan Dominguez, PROCUREMENT DIRECTOR~ HPI Date of Visit Date of Visit: Date of Service: 12/10/2024 Time of Service: 11:20 Narrative HPI: 11/26/2024-Chikis presents to [facility] wound center forevaluation and treatment of 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 This pressure injury has beenpresent for several months. We had previously been treating Chikis until she fell out of her wheelchair and sustained a distal femur fracture, and was subsequently transferred to [facility]. Upon discharge from there she was discharged to an SNF in [facility] andis now currently at an SNF in [facility]. Patient was recently evaluated by her primary care physician, Dr. Berumen, who felt that the pressure injury looked infected and did cover her for both MRSA and MSSA with ciprofloxacin 500 mg p.o. twice daily as well as cephalexin 500 mg p.o. 3 times daily x 10 days. Upon exam, shallow full-thickness pressure injury is comprisedof red, moist tissue. Periwound is dry and intact. There are no signs or symptoms of infection present on exam at today's visit, however I did encourage her to complete the entire course of antibiotic therapy as prescribed. We will plan to initiate Vashe cleanse, collagen silver, alginate, and bordered foam daily. Patient does have a fairamount of edema to the bilateral lower extremities. I also wrote for Dai wrap's to be applied dailyfrom the base of the toes to just below the knee. We will see Chikis back in our office in 2 weeks. 12/10/2024- Shelly presents to the office for follow-up evaluation and treatment of stage III pressure injury of the left posterior heel. Upon exam, the ulcer is nearly healed at today's visit, only 1 small pinpoint area remaining open. Tissue is red and moist. Periwound is dry and intact. No acute signs or symptoms of infection are present at today's visit. We will plan to initiate Vashe cleanse, collagen powder, alginate silver, bordered foam. Nursing staff at [place] will continue to perform the dressing changes. We will see Chikis back in our office in 2 to 3 weeks. 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 Ulcer of left heel Type 1 diabetes mellitus with diabetic peripheral angiopathy without gangrene Screening mammogram for breast cancer Medicare annual wellness visit, subsequent Type 1 diabetes mellitus with hyperglycemia Vitamin B12 deficiency 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 [facility] Asthma Problem List clean-up per request of Phys. [facility] Diabetes Problem List clean-up per request of Phys. [facility] Bladder cancer Problem List clean-up per request of Phys. [facility] Surgical History Fracture, femur, distal (~08/22/24) History of total cystectomy Left fibular fracture (~09/2023) Left tibial fracture (~09/2023) Intramedullary nail/screws History of bowel resection (~06/2023) History of right oophorectomy S/P ventricular shunt placement Removal 06/2023 Status post ORIF of fracture of ankle History of open reduction and internal fixation (ORIF) procedure RIGHT ANKLE, HARDWARE REMOVED History of ileal conduit (~04/2021) Hx of hysterectomy Problem List clean-up per request of Phys. [facility] Family History Father Heart disease Mother Hypertension Social History Smoking Status: Never smoker Substance Use Type: None Grafts History of Graft History of Graft?: No Exam Physical Exam Vital Signs: Temp Pulse Resp BP O2 Del Method 98.4 F 77 18 163/79 H Room Air 12/10/24 11:09 12/10/24 11:09 12/10/24 11:09 12/10/24 11:09 12/10/24 11:09 Const General: cooperative, comfortable, no acute distress and well groomed Nutritional Appearance: average body habitus Orientation: alert, awake and oriented x3 Lower/Upper Extremity Exam Vascular Exam-Edema Left Lower Extremity: Edema Type: Non-Pitting Vascular Exam-Pulses Left Brachial: Pulse Assessment Method: NIBP Left Dorsalis Pedis: Pulse Assessment Method: Doppler Left Posterior Tibial: Pulse Assessment Method: Doppler Objective Meds/Allergies Home Medications acetaminophen 325 mg tablet 325 mg PO Q6HR 07/16/23 [History Confirmed 11/26/24] posaconazole 300 mg oral suspension,delayed release in a packet (Noxafil) 300 mgPO DAILY 07/16/23 [History Confirmed 11/26/24] insulin aspart U-100 100 unit/mL subcutaneous solution See Rx Instructions .Route .COMPLEX #30 mL 03/11/24 [Rx Confirmed 11/26/24] bumetanide 1 mg tablet See Rx Instructions .Route .COMPLEX #60 tabs 04/14/24 [Rx Confirmed 11/26/24] hydrocortisone 2.5 % topical cream with perineal applicator 1 applic CO BID-QID PRN hemorrhoids 10 days #30 grams 06/20/24 [Rx Confirmed 11/26/24] Wheelchair (w/c) #1 ea 07/31/24 [Rx Confirmed 11/26/24] Lactobacillus acidophilus 10 mg PO DAILY 11/19/24 [History Confirmed 11/26/24] aspirin 81 mg tablet 81 mg PO DAILY 11/19/24 [History Confirmed 11/26/24] baclofen 10 mg tablet 10 mg PO DAILY 11/19/24 [History Confirmed 11/26/24] cholecalciferol (vitamin D3) 25 mcg (1,000 unit) capsule 25 mcg PO DAILY 11/19/24 [History Confirmed 11/26/24] docusate sodium 100 mg capsule (Colace) 100 mg PO DAILY 11/19/24 [History Confirmed 11/26/24] hydrocodone 10 mg-acetaminophen 325 mg tablet 1 tab PO Q4HR PRN pain 11/19/24 [History Confirmed 11/26/24] metoprolol succinate 100 mg tablet,extended release 24 hr 50 mg PO BID 11/19/24 [History Confirmed 11/26/24] ondansetron HCl 4 mg tablet 4 mg PO Q6HR 11/19/24 [History Confirmed 11/26/24] Allergies cyclobenzaprine (From Flexeril) Allergy (Unknown, Verified 11/26/24 08:08) Rash, hives meperidine (From Demerol) Allergy (Unknown, Verified 11/26/24 08:08) Dizziness, rash orphenadrine (Norflex) Allergy (Unknown, Verified 11/26/24 08:08) hives midazolam (From Versed) Allergy (Verified 11/26/24 08:08) Agitated Wound/Ulcer Left Heel: Type: Pressure/Injury Ulcer Pressure Ulcer/Injury Staging: Stage 3 Bed Appearance: Beefy Red and [place] Percent of Wound Bed Granulated/Red: 100 Percent of Devitalized: 0 Length (cm): 0.3 Width (cm): 0.2 Depth (cm): 0.1 CM Sq: 0.060 Surrounding Tissue Appearance: Ethnic/Norm Surrounding Tissue Temp: Warm Drainage Amount: Moderate Drainage Description: Serosanguineous Drainage Odor: No Odor Results Height: 5 ft 6 in Weight: 72.575 kg Body Mass Index: 25.8 Assessment/Plan Assessment/Plan (1) Pressure injury of left heel, stage 3: Code(s): L89.623 - Pressure ulcer of left heel, stage 3 (2) Type 1 diabetes mellitus with diabetic peripheral angiopathy without gangrene: Code(s): E10.51 - Type 1 diabetes mellitus with diabetic peripheral angiopathy without gangrene (3) Lymphedema: Code(s): I89.0 - Lymphedema, not elsewhere classified (4) Chronic venous insufficiency: Code(s): I87.2 - Venous insufficiency (chronic) (peripheral) (5) Impaired mobility and ADLs: Code(s): Z74.09 - Other reduced mobility; Z78.9 - Other specified health status Plan See orders and HPI. Time spent with patient Time Spent With Patient (min): 12 Dictated By: Sharan Dominguez APRN DD/ 19 Signed By: 12/10/241121 [facility]08-25-2025 NoteHNO ID: [id number] Author: NOEL DANIELS MD Service: ? Author Type: Physician Type: Progress Notes Filed: 12/10/2024 11:40 Note Text: [facility] VIRTUAL FOLLOW UP APPOINTMENT I have communicated my name and active licensure. The patient's identity and physical location were verified at the time of this visit. Either the patient or their legal billing customer service representative has been informed of the risks and benefits of -- and alternatives to -- treatment through a remote evaluation and consents to proceed with the evaluation remotely. This visit was completed via Virtual Visit. All issues as below were discussed and addressed but no physical exam was performed unless allowed by visual confirmation on Virtual Visit. If it was felt that the patient should be evaluated in clinic then they were directed there. Patient verbally consented to visit. Patient accompanied by : Self Current complaints: Spasticity and spasms Brief HPI: Chikis Tobar is a 58 year old right-handed female with past medical history of T1DM c/b DKA, urothelial carcinoma of the bladder s/p radical cystectomy and ileal conduit c/b SBO (Dec 2021), HTN, chronic sinusitis, asthma, fungal meningitis, myelitis and hydrocephalus status post 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 placement June 2022, externalization on 06/25/2023, removal 07/10/2023 and reimplantation on 10/15/2023. Patient experienced impaired mobility and ADLs after removal of shunt and noted minimal improvement in lower extremity function post shunt reimplantation. She was evaluated in [facility] spasticity clinic initially on 12/04/2023 for paraplegia and associated severe spasticity and flexor spasms. She was discharged home from [facility] rehab facility on 02/15/2024. She lives on her own in a ranch type house with all arrangement on the same level, She does transfers using a slide board at home. . She received initial botulinum toxin injection on 01/11/2024 and reports to clinic today to discuss next injection plan. History since last visit: Continues to report benefit with botulinum toxin injections. She had to reschedule due to transport issue. She feels that she is overdue for injections as she has increased spasms and stiffness. She was admitted to [facility] from 08/22/24-08/29/24 for Left femur fracture s/p surgical fixation. She was discharged to acute inpatient rehab at [facility]. Subsequently she went to a SNF where she didn't get a chance to work with rehab therapy satisfactorily. She is getting PT 2/week. She is now planning to transition to outpatient. She is doing as tolerated WB on LLE. She had a question regarding changes on MRI Cx spine and was recommended by spine health to consult spine surgery. She was wondering if botox can be done in this situation. She denies any new symptoms or limitation. She denies any change in trunk control. -Most recent botulinum toxin injection: 07/22/24 -New weakness or numbness: No -Fever or flu like symptoms : No -Ongoing antibiotics: No -Change in bowel or bladder function: No -Anticoagulation/antiplatelet medications: Aspirin -Other: Standing wheelchair ordered Spasticity treatment: -Home exercise routine: - -PT/OT: currently at [facility]- planning to transition to outpatient -Medications: Baclofen 10 mg-10 mg - 20 mg -Botulinum toxin therapy: Yes- effective -Other/orthosis: No Patient goals: -reduce lower extremity spasms -achieved (reduction in MACHO spasm frequency scale from 6 to 3 today) -Reduce discomfort/pain associated with spasms (achieved) -Improve participation in therapies (achieved) -Improve positioning in bed, wheelchair (achieved) -Improve mobility/transfers and ambulation (progressing) BT therapy effective? Yes - stiffness, spasms/cramps, active function and ease of care Duration of benefit: 10 weeks Side effects: No Spasm scale: 1=Mild spasms induced by stimulation (Spasm severity 2) Patient Entered Data PROMIS No data to display Spasticity NRS 07/22/2024 04/15/2024 -- Spasm Scale 1=Mild spasms induced by stimulation 2=Infrequent full spasms occuring less than once per hour Spasm Scale - Trendable Number 1 2 Spasm Scale No data to display Global Impression of Change No data to display Examination: :Limited due to virtual visit Alert and awake Speech articulated, fluent and preserved comprehension Able to provide treatment history Asking appropriate questions Affect- calm Stable sitting posture Assessment: Chikis Tobar is a 58 year old right-handed female with past medical history of T1DM cb/ DKA, urothelial carcinoma of the bladder s/p radical cystectomy and ileal conduit c/b SBO (Dec 2021), HTN, chronic sinusitis, asthma, right frozen shoulder, fungal meningitis, myelitis and hydrocephalus status post initial 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 placement June 2022 and reimplantation in 10/15/2023. She has paraplegia with severe spasticity and flexor spasms which is limiting her functions and part (more content not included)...[facility]08-25-2025 History of Present illness Narrative* Noel Daniels MD - 12/08/2024 12:58 PM EDT Images from the original note were not included. [facility] VIRTUAL FOLLOW UP APPOINTMENT I have communicated my name and active licensure. The patient's identity and physical location wereverified at the time of this visit. Either the patient or their legal billing customer service representative has been informed of the risks and benefits of -- and alternatives to -- treatment through a remote evaluation andconsents to proceed with the evaluation remotely. This visit was completed via Virtual Visit. All issues as below were discussed and addressed but nophysical exam was performed unless allowed by visual confirmation on Virtual Visit. If it was felt that the patient should be evaluated in clinic then they were directed there. Patient verbally consented to visit. Patient accompanied by : Self Current complaints: Spasticity and spasms Brief HPI: Chikis Tobar is a 58 year old right-handed female with past medical history of T1DM c/b DKA, urothelial carcinoma of the bladder s/p radical cystectomy and ileal conduit c/b SBO (Dec 2021), HTN, chronic sinusitis, asthma, fungal meningitis, myelitis and hydrocephalus status post 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 plac ement June 2022, externalization on 06/25/2023, removal 07/10/2023 and reimplantation on 10/15/2023. Patient experienced impaired mobility and ADLs after removal of shunt and noted minimal improvement in lower extremity function post shunt reimplantation. She was evaluated in [facility] spasticity clinic initially on 12/04/2023 for paraplegia and associated severe spasticity and flexor spasms. [facility]. She lives on her own in a ranch type house with all arrangement on the same level, She does transfers using a slide board at home. . She received initial botulinum toxin injection on 01/11/2024 and reports to clinic today to discuss next injection plan. History since last visit: Continues to report benefit with botulinum toxin injections. She had to reschedule due to transportissue. She feels that she is overdue for injections as she has increased spasms and stiffness. She was admitted to [facility] from 08/22/24-08/29/24 for Left femur fracture s/p surgical fixation.She was discharged to acute inpatient rehab at [facility]. Subsequently she went to a SNF where she didn't get a chance to work with rehab therapy satisfactorily. She is getting PT 2/week. She is now planning to transition to outpatient. She is doing as tolerated WB on LLE. She had a question regarding changes on MRI Cx spine and was recommended by spine health to consultspine surgery. She was wondering if botox can be done in this situation. She denies any new symptoms or limitation. She denies any change in trunk control. -Most recent botulinum toxin injection: 07/22/24 -New weakness or numbness: No -Fever or flu like symptoms : No -Ongoing antibiotics: No -Change in bowel or bladder function: No -Anticoagulation/antiplatelet medications: Aspirin -Other: Standing wheelchair ordered Spasticity treatment: -Home exercise routine: - -PT/OT: currently at SNF- planning to transition to outpatient -Medications: Baclofen 10 mg-10 mg - 20 mg -Botulinum toxin therapy: Yes- effective -Other/orthosis: No Patient goals: -reduce lower extremity spasms -achieved (reduction in MACHO spasm frequency scale from 6 to 3 today) -Reduce discomfort/pain associated with spasms (achieved) -Improve participation in therapies (achieved) -Improve positioning in bed, wheelchair (achieved) -Improve mobility/transfers and ambulation (progressing) BT therapy effective? Yes - stiffness, spasms/cramps, active function and ease of care Duration of benefit: 10 weeks Side effects: No Spasm scale: 1=Mild spasms induced by stimulation (Spasm severity 2) Patient Entered Data PROMIS No data to display Spasticity NRS 07/22/2024 04/15/2024 -- Spasm Scale 1=Mild spasms induced by stimulation 2=Infrequent full spasms occuring less than once per hour Spasm Scale - Trendable Number 1 2 Spasm Scale No data to display Global Impression of Change No data to display Examination: :Limited due to virtual visit Alert and awake Speech articulated, fluent and preserved comprehension Able to provide treatment history Asking appropriate questions Affect- calm Stable sitting posture Assessment: Chikis Tobar is a 58 year old right-handed female with past medical history of T1DM cb/ DKA, urothelial carcinoma of the bladder s/p radical cystectomy and ileal conduit c/b SBO (Dec 2021), HTN, chronic sinusitis, asthma, right frozen shoulder, fungal meningitis, myelitis and hydrocephalus st atus post initial 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 placement June 2022 and reimplantation in 10/15/2023. She has paraplegia with severe spasticity and flexor spasms which is limiting her functions and participation in therapies. She is established with PM&R for spasticity management and reported to discuss next injection plan. Patient denies any new symptoms except increased spasms which appears to be due to pending botulinum toxin injection. Explained that botulinum toxin injections are helpful to treat secondary effects/sequelae (spasticity) after conditions resulting into UMN syndrome. From spasticity management standpoint, she can continue with botulinum toxin injections. This will also help patient to increase herrehab potential while at SNF. Still recommended to continue follow up with spine health/NSGY to discuss MRI findings. (G82.22) Chronic incomplete spastic paraplegia (HCC) (primary encounter diagnosis) (M62.838) Spasm of muscle (Z74.09, Z78.9) Impaired mobility and activities of daily living MS BT PRE AUTH Plan: Follow up as scheduled for Chemodenervation with Botulinum toxin A on 12/16/24. Discussed possible dose reduction for left hip flexors, left hamstrings and exclusion of right hamstrings if this is contributing to increased mobility efforts. Will review prior to injection. Continue working with rehab therapy as tolerated. Continue timely pressure relief when changing position Continue baclofen 10 mg-10 mg - 20 mg. She feels okay with the current dose. Patient would like to hold off on phenol neurolysis for now. Will continue to discuss. Noel Daniels MD Physical Medicine & Rehab [facility] encounter Note * Telephone Encounter - Glory Pedraza RN - 12/02/2024 10:10 AM EDT Faxed last office visit notes and circled the insulin basal rate from the notes. Confirmation received. [facility]08-19-2025 Miscellaneous Notes* Telephone Encounter - Glory Pedraza RN - 12/02/2024 10:10 AM EDT Faxed last office visit notes and circled the insulin basal rate from the notes. Confirmation received. * Telephone Encounter - Kaylene Godinez - 11/28/2024 1:39 PM EDT Yaneth the nurse with [facility] and rehab is calling Ruddy Gupta MD today with concern regarding Patient Question and requesting OV notes and insulin rate be sent to them to continue care for the patient while in the facility Fax insulin rate and notes to [phone] Patient has been identified by name and birthdate. Duration of symptoms: N/A Person calling: Caregiver Call: [phone] Was an appointment scheduled: No Closing statement: Results or non-symptom based questions: Thank you for calling [facility], your call will be returned within the next business day. Kaylene Godinez documented in this encounterThe [facility]08-18-2025 Telephone encounter Note * Telephone Encounter - Ria Trujillo RN - 12/01/2024 2:54 PM EDT Forwarding to provider [facility]08-18-2025 Miscellaneous Notes* Telephone Encounter - Ria Trujillo RN - 12/01/2024 2:54 PM EDT Forwarding to provider documented in [facility]The [facility]-15-2025 Telephone encounter Note * Telephone Encounter - Kaylene Godinez - 11/28/2024 1:39 PM EDT [facility] is calling Ruddy Gupta MD today with concern regarding Patient Question and requesting OV notes and insulin rate be sent to them to continue care for the patient while in the facility Fax insulin rate and notes to [phone] Patient has been identified by name and birthdate. Duration of symptoms: N/A Person calling: Caregiver Call: [phone] Was an appointment scheduled: No Closing statement: Results or non-symptom based questions: Thank you for calling [facility], your call will be returned within the next business day. 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 This pressure injury has beenpresent for several months. We had previously been treating Chikis until she fell out of her wheelchair and sustained a distal femur fracture, and was subsequently transferred to [facility]. Upon discharge from there she was discharged to an SNF in [facility] andis now currently at an SNF in [facility]. Patient was recently evaluated by her primary care physician, Dr. Berumen, who felt that the pressure injury looked infected and did cover her for both MRSA and MSSA with ciprofloxacin 500 mg p.o. twice daily as well as cephalexin 500 mg p.o. 3 times daily x 10 days. Upon exam, shallow full-thickness pressure injury is comprisedof red, moist tissue. Periwound is dry and intact. There are no signs or symptoms of infection present on exam at today's visit, however I did encourage her to complete the entire course of antibiotic therapy as prescribed. We will plan to initiate Vashe cleanse, collagen silver, alginate, and bordered foam daily. Patient does have a fairamount of edema to the bilateral lower extremities. I also wrote for Dai wrap's to be applied dailyfrom the base of the toes to just below the knee. We will see Chikis back in our office in 2 weeks. 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 Ulcer of left heel Type 1 diabetes mellitus with diabetic peripheral angiopathy without gangrene Screening mammogram for breast cancer Medicare annual wellness visit, subsequent Type 1 diabetes mellitus with hyperglycemia Vitamin B12 deficiency 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 EHR Cmte Asthma Problem List clean-up per request of Phys. EHR Cmte Diabetes Problem List clean-up per request of Phys. EHR Cmte Bladder cancer Problem List clean-up per request of Phys. EHR Cmte Surgical History Fracture, femur, distal (~08/22/24) History of total cystectomy Left fibular fracture (~09/2023) Left tibial fracture (~09/2023) Intramedullary nail/screws History of bowel resection (~06/2023) History of right oophorectomy S/P ventricular shunt placement Removal 06/2023 Status post ORIF of fracture of ankle History of open reduction and internal fixation (ORIF) procedure RIGHT ANKLE, HARDWARE REMOVED History of ileal conduit (~04/2021) Hx of hysterectomy Problem List clean-up per request of Phys. EHR Cmte Family History Father Heart disease Mother Hypertension Social History Smoking Status: Never smoker Substance Use Type: None Grafts History of Graft History of Graft?: No Exam Physical Exam Vital Signs: Temp Pulse Resp BP O2 Del Method 97.2 F L 73 20 169/80 H Room Air 11/26/24 07:55 11/26/24 07:55 11/26/24 07:55 11/26/24 07:55 11/26/24 07:55 Const General: cooperative, comfortable, no acute distress and well groomed Nutritional Appearance: average body habitus Orientation: alert, awake and oriented x3 Lower/Upper Extremity Exam Vascular Exam-Edema Left Lower Extremity: Edema Degree: 2+ Edema Type: Pitting Vascular Exam-Pulses Left Brachial: Pulse Assessment Method: NIBP Left Dorsalis Pedis: Pulse Assessment Method: Doppler Left Posterior Tibial: Pulse Assessment Method: Doppler Objective Meds/Allergies Home Medications acetaminophen 325 mg tablet 325 mg PO Q6HR 07/16/23 [History Confirmed 11/26/24] posaconazole 300 mg oral suspension,delayed release in a packet (Noxafil) 300 mgPO DAILY 07/16/23 [History Confirmed 11/26/24] insulin aspart U-100 100 unit/mL subcutaneous solution See Rx Instructions .Route .COMPLEX #30 mL 03/11/24 [Rx Confirmed 11/26/24] bumetanide 1 mg tablet See Rx Instructions .Route .COMPLEX #60 tabs 04/14/24 [Rx Confirmed 11/26/24] hydrocortisone 2.5 % topical cream with perineal applicator 1 applic CO BID-QID PRN hemorrhoids 10 days #30 grams 06/20/24 [Rx Confirmed 11/26/24] Wheelchair (w/c) #1 ea 07/31/24 [Rx Confirmed 11/26/24] Lactobacillus acidophilus 10 mg PO DAILY 11/19/24 [History Confirmed 11/26/24] aspirin 81 mg tablet 81 mg PO DAILY 11/19/24 [History Confirmed 11/26/24] baclofen 10 mg tablet 10 mg PO DAILY 11/19/24 [History Confirmed 11/26/24] cholecalciferol (vitamin D3) 25 mcg (1,000 unit) capsule 25 mcg PO DAILY 11/19/24 [History Confirmed 11/26/24] docusate sodium 100 mg capsule (Colace) 100 mg PO DAILY 11/19/24 [History Confirmed 11/26/24] hydrocodone 10 mg-acetaminophen 325 mg tablet 1 tab PO Q4HR PRN pain 11/19/24 [History Confirmed 11/26/24] metoprolol succinate 100 mg tablet,extended release 24 hr 50 mg PO BID 11/19/24 [History Confirmed 11/26/24] metronidazole 0.75 % topical gel 1 applic topical DAILY 11/19/24 [History Confirmed 11/26/24] ondansetron HCl 4 mg tablet 4 mg PO Q6HR 11/19/24 [History Confirmed 11/26/24] cephalexin HCl 500 mg tablet 500 mg PO TID 11/26/24 [History Confirmed 11/26/24] ciprofloxacin HCl 500 mg tablet 500 mg PO BID 11/26/24 [History Confirmed 11/26/24] Allergies cyclobenzaprine (From Flexeril) Allergy (Unknown, Verified 11/26/24 08:08) Rash, hives meperidine (From Demerol) Allergy (Unknown, Verified 11/26/24 08:08) Dizziness, rash orphenadrine (Norflex) Allergy (Unknown, Verified 11/26/24 08:08) hives midazolam (From Versed) Allergy (Verified 11/26/24 08:08) Agitated Wound/Ulcer Left Heel: Type: Pressure/Injury Ulcer Pressure Ulcer/Injury Staging: Stage 3 Bed Appearance: Beefy Red and [place] Percent of Wound Bed Granulated/Red: 100 Percent of Devitalized: 0 Length (cm): 1 Width (cm): 0.5 Depth (cm): 0.1 CM Sq: 0.500 Surrounding Tissue Appearance: Ethnic/Norm Surrounding Tissue Temp: Warm Drainage Amount: Moderate Drainage Description: Serosanguineous Drainage Odor: No Odor Results Height: 5 ft 6 in Weight: 72.575 kg Body Mass Index: 25.8 Assessment/Plan Assessment/Plan (1) Pressure injury of left heel, stage 3: Code(s): L89.623 - Pressure ulcer of left heel, stage 3 (2) Type 1 diabetes mellitus with diabetic peripheral angiopathy without gangrene: Code(s): E10.51 - Type 1 diabetes mellitus with diabetic peripheral angiopathy without gangrene (3) Lymphedema: Code(s): I89.0 - Lymphedema, not elsewhere classified (4) Chronic venous insufficiency: Code(s): I87.2 - Venous insufficiency (chronic) (peripheral) (5) Impaired mobility and ADLs: Code(s): Z74.09 - Other reduced mobility; Z78.9 - Other specified health status Plan See orders and HPI. 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 This pressure injury has beenpresent for several months. We had previously been treating Chikis until she fell out of her wheelchair and sustained a distal femur fracture, and was subsequently transferred to [facility]. Upon discharge from there she was discharged to an SNF in [facility] andis now currently at an SNF in [facility]. Patient was recently evaluated by her primary care physician, Dr. Berumen, who felt that the pressure injury looked infected and did cover her for both MRSA and MSSA with ciprofloxacin 500 mg p.o. twice daily as well as cephalexin 500 mg p.o. 3 times daily x 10 days. Upon exam, shallow full-thickness pressure injury is comprisedof red, moist tissue. Periwound is dry and intact. There are no signs or symptoms of infection present on exam at today's visit, however I did encourage her to complete the entire course of antibiotic therapy as prescribed. We will plan to initiate Vashe cleanse, collagen silver, alginate, and bordered foam daily. Patient does have a fairamount of edema to the bilateral lower extremities. I also wrote for Dai wrap's to be applied dailyfrom the base of the toes to just below the knee. We will see Chikis back in our office in 2 weeks. 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 Ulcer of left heel Type 1 diabetes mellitus with diabetic peripheral angiopathy without gangrene Screening mammogram for breast cancer Medicare annual wellness visit, subsequent Type 1 diabetes mellitus with hyperglycemia Vitamin B12 deficiency 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 EHR Cmte Asthma Problem List clean-up per request of Phys. EHR Cmte Diabetes Problem List clean-up per request of Phys. EHR Cmte Bladder cancer Problem List clean-up per request of Phys. EHR Cmte Surgical History Fracture, femur, distal (~08/22/24) History of total cystectomy Left fibular fracture (~09/2023) Left tibial fracture (~09/2023) Intramedullary nail/screws History of bowel resection (~06/2023) History of right oophorectomy S/P ventricular shunt placement Removal 06/2023 Status post ORIF of fracture of ankle History of open reduction and internal fixation (ORIF) procedure RIGHT ANKLE, HARDWARE REMOVED History of ileal conduit (~04/2021) Hx of hysterectomy Problem List clean-up per request of Phys. EHR Cmte Family History Father Heart disease Mother Hypertension Social History Smoking Status: Never smoker Substance Use Type: None Grafts History of Graft History of Graft?: No Exam Physical Exam Vital Signs: Temp Pulse Resp BP O2 Del Method 97.2 F L 73 20 169/80 H Room Air 11/26/24 07:55 11/26/24 07:55 11/26/24 07:55 11/26/24 07:55 11/26/24 07:55 Const General: cooperative, comfortable, no acute distress and well groomed Nutritional Appearance: average body habitus Orientation: alert, awake and oriented x3 Lower/Upper Extremity Exam Vascular Exam-Edema Left Lower Extremity: Edema Degree: 2+ Edema Type: Pitting Vascular Exam-Pulses Left Brachial: Pulse Assessment Method: NIBP Left Dorsalis Pedis: Pulse Assessment Method: Doppler Left Posterior Tibial: Pulse Assessment Method: Doppler Objective Meds/Allergies Home Medications acetaminophen 325 mg tablet 325 mg PO Q6HR 07/16/23 [History Confirmed 11/26/24] posaconazole 300 mg oral suspension,delayed release in a packet (Noxafil) 300 mgPO DAILY 07/16/23 [History Confirmed 11/26/24] insulin aspart U-100 100 unit/mL subcutaneous solution See Rx Instructions .Route .COMPLEX #30 mL 03/11/24 [Rx Confirmed 11/26/24] bumetanide 1 mg tablet See Rx Instructions .Route .COMPLEX #60 tabs 04/14/24 [Rx Confirmed 11/26/24] hydrocortisone 2.5 % topical cream with perineal applicator 1 applic CO BID-QID PRN hemorrhoids 10 days #30 grams 06/20/24 [Rx Confirmed 11/26/24] Wheelchair (w/c) #1 ea 07/31/24 [Rx Confirmed 11/26/24] Lactobacillus acidophilus 10 mg PO DAILY 11/19/24 [History Confirmed 11/26/24] aspirin 81 mg tablet 81 mg PO DAILY 11/19/24 [History Confirmed 11/26/24] baclofen 10 mg tablet 10 mg PO DAILY 11/19/24 [History Confirmed 11/26/24] cholecalciferol (vitamin D3) 25 mcg (1,000 unit) capsule 25 mcg PO DAILY 11/19/24 [History Confirmed 11/26/24] docusate sodium 100 mg capsule (Colace) 100 mg PO DAILY 11/19/24 [History Confirmed 11/26/24] hydrocodone 10 mg-acetaminophen 325 mg tablet 1 tab PO Q4HR PRN pain 11/19/24 [History Confirmed 11/26/24] metoprolol succinate 100 mg tablet,extended release 24 hr 50 mg PO BID 11/19/24 [History Confirmed 11/26/24] metronidazole 0.75 % topical gel 1 applic topical DAILY 11/19/24 [History Confirmed 11/26/24] ondansetron HCl 4 mg tablet 4 mg PO Q6HR 11/19/24 [History Confirmed 11/26/24] cephalexin HCl 500 mg tablet 500 mg PO TID 11/26/24 [History Confirmed 11/26/24] ciprofloxacin HCl 500 mg tablet 500 mg PO BID 11/26/24 [History Confirmed 11/26/24] Allergies cyclobenzaprine (From Flexeril) Allergy (Unknown, Verified 11/26/24 08:08) Rash, hives meperidine (From Demerol) Allergy (Unknown, Verified 11/26/24 08:08) Dizziness, rash orphenadrine (Norflex) Allergy (Unknown, Verified 11/26/24 08:08) hives midazolam (From Versed) Allergy (Verified 11/26/24 08:08) Agitated Wound/Ulcer Left Heel: Type: Pressure/Injury Ulcer Pressure Ulcer/Injury Staging: Stage 3 Bed Appearance: Beefy Red and [place] Percent of Wound Bed Granulated/Red: 100 Percent of Devitalized: 0 Length (cm): 1 Width (cm): 0.5 Depth (cm): 0.1 CM Sq: 0.500 Surrounding Tissue Appearance: Ethnic/Norm Surrounding Tissue Temp: Warm Drainage Amount: Moderate Drainage Description: Serosanguineous Drainage Odor: No Odor Results Height: 5 ft 6 in Weight: 72.575 kg Body Mass Index: 25.8 Assessment/Plan Assessment/Plan (1) Pressure injury of left heel, stage 3: Code(s): L89.623 - Pressure ulcer of left heel, stage 3 (2) Type 1 diabetes mellitus with diabetic peripheral angiopathy without gangrene: Code(s): E10.51 - Type 1 diabetes mellitus with diabetic peripheral angiopathy without gangrene (3) Lymphedema: Code(s): I89.0 - Lymphedema, not elsewhere classified (4) Chronic venous insufficiency: Code(s): I87.2 - Venous insufficiency (chronic) (peripheral) (5) Impaired mobility and ADLs: Code(s): Z74.09 - Other reduced mobility; Z78.9 - Other specified health status Plan See orders and HPI. Time spent with patient Time Spent With Patient (min): 20 Dictated By: Sharan Dominguez APRN DD/ 5 Signed By: 11/26/24 08 [facility]08-06-2025 Evaluation note* Diagnosis Onset Date Resolution Status Admit Date Chronic venous insufficiency acuteAugust 2024 10:05amFracture, femur, distalMay, uteAugust 2024 10:05amHTN (hypertension)acuteAugust 2024 10:05amHydrocephalusacute November 19, 2024 10:05amMultiple rib fracturesacuteAugust 2024 10:05am Peripheral artery diseaseacuteAugust 2024 10:05amPressure injury of left heel, stage 3acuteAugust 2024 10:05amSpastic hypertoniaacuteAugust 2024 10:05amTransitional cell bladder canceracuteAugust 2024 10:05amType 1 diabetes mellitus with diabetic peripheral angiopathy without gangreneacute November 19, 2024 10:05amType 1 diabetes mellitus with hyperglycemiaacuteAugust 2024 10:05amVitamin B12 deficiencyacuteAugust 2024 10:05amChronic venous insufficiencyacuteAugust 2024 11:08amImpaired mobility and ADLs acuteAugust 2024 11:08amLymphedemaacuteAugust 2024 11:08amPressure injury of left heel, stage 3acuteAugust 2024 11:08amType 1 diabetes mellitus with diabetic peripheral angiopathy without gangreneacuteAugust 2024 11:08amChronic venous insufficiencyacuteSeptember 2024 11:22amHTN (hypertension)acuteSeptember 2024 11:22amHydrocephalusacuteSeptember 2024 11:22amPeripheral artery diseaseacuteSeptember 2024 11:22amPressure injury of left heel, stage 3acuteSeptember 2024 11:22amSpastic hypertonia acuteSeptember 2024 11:22amType 1 diabetes mellitus with diabetic peripheral angiopathy without gangreneacuteSeptember 2024 11:22amType 1 diabetes mellitus with hyperglycemiaacuteSeptember 2024 11:22am [facility] Work Phone: 1(643) 753-178408-06-2025 Evaluation note* Diagnosis Onset Date Resolution Status Admit Date Chronic venous insufficiency acuteAugust 2024 10:05amFracture, femur, distalMay, uteAugust 2024 10:05amHTN (hypertension)acuteAugust 2024 10:05amHydrocephalusacute November 19, 2024 10:05amMultiple rib fracturesacuteAugust 2024 10:05am Peripheral artery diseaseacuteAugust 2024 10:05amPressure injury of left heel, stage 3acuteAugust 2024 10:05amSpastic hypertoniaacuteAugust 2024 10:05amTransitional cell bladder canceracuteAugust 2024 10:05amType 1 diabetes mellitus with diabetic peripheral angiopathy without gangreneacute November 19, 2024 10:05amType 1 diabetes mellitus with hyperglycemiaacuteAugust 2024 10:05amVitamin B12 deficiencyacuteAugust 2024 10:05amChronic venous insufficiencyacuteSeptember 2024 11:22amHTN (hypertension)acute Nicole 2024 11:22amHydrocephalusacuteSeptember 2024 11:22am Peripheral artery diseaseacuteSeptember 2024 11:22amPressure injury of left heel, stage 1acuteSeptember 2024 11:22amSpastic hypertoniaacute December 26, 2024 11:22amType 1 diabetes mellitus with diabetic peripheral angiopathy without gangreneacuteSeptember 2024 11:22amType 1 diabetes mellitus with hyperglycemiaacuteSeptember 2024 11:22amChronic venous insufficiencyacuteSeptember 2024 11:04amImpaired mobility and ADLsacute December 31, 2024 11:04amLymphedemaacuteSeptember 2024 11:04amPressure injury of left heel, stage 3acuteSeptember 2024 11:04amType 1 diabetes mellitus with diabetic peripheral angiopathy without gangreneacuteSeptember 2024 11:04am [facility] Work Phone: 1(124) 601-124207-23-2025 Telephone encounter Note* Telephone Encounter - Ria Trujillo RN - 11/05/2024 10:02 AM EDT Forwarding to provider [facility]07-23-2025 Miscellaneous Notes* Telephone Encounter - Ria Trujillo RN - 11/05/2024 10:02 AM EDT [facility] provider [facility] NoteHNO ID: [id number] Author: JAMIE MCCARTY MD Service: ? Author Type: Physician Type: Progress Notes Filed: 11/19/2024 21:38 Note Text: INFECTIOUS DISEASES OUTPATIENT FOLLOW-UP NOTE SERVICE DATE: October 22, 2024 Last visit:July 02, 2024 Summary of HPI HPI: 59 year old female with medical history of [...] performed and she was transferred to [facility]. She was found to have DKA. A CT head showed hydrocephalus with MRI on May 29, 2022 showing multiple areas of enhancement in the anterior sabra, medulla, and in the spine at the level of C7-T3 and L1-S2. Multiple taps were performed and were unsuccessful. A 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 was placed and patient underwent a meningeal biopsy 06/26/2022 which pathology showed hyphae elements. PCR sent from multiple tissue samples and CSF next gen sequencing were all negative. She was started on posaconazole to cover molds. While taylor can present with pseudohyphae, it did not grow, with concerns for other molds rather than yeast CT 08/16/2022 Relative normalization of ventricular caliber with resolved asymmetric slit like appearance of the right lateral ventricle with shunt in place since 08/16/2022. Small subdural hygromas over the frontal lobes (8 mm). LFTs 08/16 normal . 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 was adjusted from 4 to 7 Posaconazole level 2.4 on 08/21/22 Developed a facial rash in September 2022, mainly the malar area, a few spots on the forehead. Dx'd with rosacea by PCP and started on metronidazole gel. She was seeing wound care at [facility] for her sacral area ulcer. Rx'd with medical honey gel and silicone bordered foam bandage. Healed over several months At her ID clinic visit 10/18/22 she was doing very well. The rash had improved over malar region with a few papules on forehead. Appeared c/w rosacea, [...] decrease in smal bifrontal convexity subdural hygromas. 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 Has gained wt. Urology felt her urothelial CA was CHRISTINE on surveillance imaging, urine cytology. Continue surveillance imaging q 6 months. Trujillo remains in place. ID clinic 01/15/23, doing fairly well overall, tolerating posaconazole. Strength improving and ambulatory, using a cane PRN. No 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 issues. Balance has improved but still [...] of antifungals and then reassess with imaging. ID clinic 03/19/23: Seemed to have reached a plateau with her neuro recovery, with stable balance problems and various areas of sensory loss. Neuro exam showed abnormal Romberg (unable to stand feet together with eyes OPEN), balance deficits, some decreased sensation upper back region (around T5) and patchy areas both anterolateral thighs. Ambulatory with a cane, improving wt, and overall motor strength. Had a near fall in prior week without d (more content not included)...[facility] [id number] NoteHNO ID: [id number] Author: BIANCA LITTLE PA-C Service: ? Author Type: Physician Coordinate Measuring Machine Programmer Type: Progress Notes Filed: 12/10/2024 11:03 Note Text: Spine Care Path Neck Pain - Chronic (> 12 weeks) Initial Exam SUBJECTIVE History of Present Illness: Ms. Tobar is a 59 year old female who presents with a chief complaint of neck pain and is seen in consultation requested by Dr. Marlene Cordero for an opinion regarding neck pain. My final recommendations will be communicated back to the requesting physician by way of shared medical record or letter via US mail. Chikis Tobar is a 59-year-old female with a history of type 1 diabetes, fungal meningitis, and bladder cancer, presenting for evaluation of cervical spinal stenosis. Cervical Spinal Stenosis: - Reports heaviness in bilateral lower extremities from the umbilicus down, with associated muscle spasms. - Muscle spasms occur multiple times daily, most relaxed when in a sitting position. - Difficulty standing and walking; requires support from parallel bars. - No neck or back pain. - No numbness or tingling in upper extremities; able to perform all tasks with hands. - No previous spinal surgery on the structure of the spine itself. - Denies any recent lumbar spine imaging. 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 - Currently taking posaconazole. Bladder Cancer: - Diagnosed in 2020; resolved after bladder removal. - Recent follow-up with Dr. Raphael showed swelling around the right kidney and ureter. - Scheduled for an ultrasound in 6 months. Type 1 Diabetes: - Diagnosed at age 6. - Reports four episodes of DKA in 2021. - No previous issues with blood sugar control. PAIN EVALUATION No data found in the last 1 encounters. Patient Entered Questionnaires 10/22/2024 Spine Questions Pain Location: Leg Pain Duration: 6 months - 1 year Pain over last 6 months: Every day or nearly every day in the past 6 months Symptoms from neck/cervical spine: Yes Employment Status: Disabled for reasons other than back pain Involved in law suit/legal claim: No 10/22/2024 Spine Red Flags Any type of cancer: Yes Unexplained fever: No Bowel or bladder disfunction: No Unintentional weight loss: No Osteoporosis: No 10/22/2024 Neck Questionnaires Josette Modified SIRI Score Incomplete Allergies: ALLERGIES Allergen Reactions Demeral [Meperidine] GI Upset Nausea, pt states room spins Flexeril [Cyclobenz* Hives Orphenadrine Other: See Comments, Hives, Rash Versed [Midazolam] Mental Status Change Medications: DOCUSATE SODIUM PO Take 100 mg by mouth once daily. HYDROcodone-Acetaminophen (NORCO) 10-325 mg per tablet Take 1 tablet by mouth every 4 hours as needed. FAMOTIDINE PO Take by mouth. metoprolol tartrate, short acting, (LOPRESSOR) 50 mg tablet Take 50 mg by mouth two times a day. polyethylene glycol 1450 MW, NF, BASE A, powd cholecalciferol, vitamin D3, (VITAMIN D3 PO) Take by mouth. acetaminophen (TYLENOL) 325 mg tablet Take 2 tablets by mouth every 6 hours as needed for pain. aspirin, enteric coated (ADULT LOW DOSE ASPIRIN) 81 mg EC tablet Take 1 tablet by mouth two times a day for 28 days, THEN 1 tablet two times a day. metoprolol succinate ER (TOPROL XL) 100 mg Take 0.5 tablets by mouth two times a day. posaconazole DR (NOXAFIL) 100 mg tablet Take 3 tablets by mouth once daily. baclofen 10 mg tablet Take 1 tablet by mouth two times a day AND 2 tablets daily at bedtime. potassium chloride SR (MICRO-K) 10 mEq CR capsule Take 1 capsule by mouth every afternoon. bumetanide (BUMEX) 1 mg tablet Take 1 tablet by mouth every 12 hours. cyanocobalamin (VITAMIN B-12) 1,000 mcg tab Take 1,000 mcg by mouth. glucagon 3 mg/actuation nasal spray (BAQSIMI) ondansetron orally disintegrating (ZOFRAN ODT) 4 mg disintegrating tablet Take 4 mg by mouth every 6 hours as needed. DULCOLAX, BISACODYL, RECTAL by RECTAL route once daily as needed. dextrose 40 % gel Take 15 g by mouth as needed. insulin aspart U-100 (NOVOLOG) 100 unit/mL Use via insulin pump Max daily dose 100 units, DX: E10.65 senna-docusate (SENNA-S) 8.6-50 mg per tablet 1 tablet by ORAL/FEEDING TUBE route two times a day. lisinopril (ZESTRIL) 5 mg tablet Take 1 tablet by mouth once daily. [DISCONTINUED] lactobacillus rhamnosus (CULTURELLE) 10 billion cell capsule Take 1 capsule by mouth once daily. Past Medical History: PAST MEDICAL HISTORY Diagnosis Date Asthma (HCC) 02/16/2021 Bladder cancer (HCC) 02/2021 urothelial carcinoma Diabetes mellitus type 1 (HCC) 04/13/2021 diagnosed at age 6 Fracture of tibia 09/2023 HTN (hypertension) 02/16/2021 Meningitis (HCC) 2022 Patient reported shunt placement (with subsequent removal and re-placement in September,) Neoplasm of bladder 02/16/2021 Obesity 02/16/2021 Palpitations 02/16/2021 Past Surgical History: PAST BOBO (more content not included)...[facility]07-09-2025 History of Present illness Narrative* Bianca Little PA-C - 10/22/2024 3:21 PM EDT Spine Care Path Neck Pain - Chronic (> 12 weeks) Initial Exam SUBJECTIVE History of Present Illness: Ms. Tobar is a 59 year old female who presents with a chief complaint of neck pain and is seen in consultation requested by Dr. Marlene Cordero for an opinion regarding neck pain. My final recommendations will be communicated back to the requesting physician by way of shared medical record orletter via [place] mail. Chikis Tobar is a 59-year-old female with a history of type 1 diabetes, fungal meningitis, and bladder cancer, presenting for evaluation of cervical spinal stenosis. Cervical Spinal Stenosis: - Reports heaviness in bilateral lower extremities from the umbilicus down, with associated muscle spasms. - Muscle spasms occur multiple times daily, most relaxed when in a sitting position. - Difficulty standing and walking; requires support from parallel bars. - No neck or back pain. - No numbness or tingling in upper extremities; able to perform all tasks with hands. - No previous spinal surgery on the structure of the spine itself. - Denies any recent lumbar spine imaging. 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 - Currently taking posaconazole. Bladder Cancer: - Diagnosed in 2020; resolved after bladder removal. - Recent follow-up with Dr. Raphael showed swelling around the right kidney and ureter. - Scheduled for an ultrasound in 6 months. Type 1 Diabetes: - Diagnosed at age 6. - Reports four episodes of DKA in 2021. - No previous issues with blood sugar control. PAIN EVALUATION No data found in the last 1 encounters. Patient Entered Questionnaires 10/22/2024 Spine Questions Pain Location: Leg Pain Duration: 6 months - 1 year Pain over last 6 months: Every day or nearly every day in the past 6 months Symptoms from neck/cervical spine: Yes Employment Status: Disabled for reasons other than back pain Involved in law suit/legal claim: No 10/22/2024 Spine Red Flags Any type of cancer: Yes Unexplained fever: No Bowel or bladder disfunction: No Unintentional weight loss: No Osteoporosis: No 10/22/2024 Neck Questionnaires Benzel Modified SIRI Score Incomplete Allergies: ALLERGIES Allergen Reactions Demeral [Meperidine] GI Upset Nausea, pt states room spins Flexeril [Cyclobenz* Hives Orphenadrine Other: See Comments, Hives, Rash Versed [Midazolam] Mental Status Change Medications: DOCUSATE SODIUM PO Take 100 mg by mouth once daily. HYDROcodone-Acetaminophen (NORCO) 10-325 mg per tablet Take 1 tablet by mouth every 4 hours as needed. FAMOTIDINE PO Take by mouth. metoprolol tartrate, short acting, (LOPRESSOR) 50 mg tablet Take 50 mg by mouth two times a day. polyethylene glycol 1450 MW, NF, BASE A, powd cholecalciferol, vitamin D3, (VITAMIN D3 PO) Take by mouth. acetaminophen (TYLENOL) 325 mg tablet Take 2 tablets by mouth every 6 hours as needed for pain. aspirin, enteric coated (ADULT LOW DOSE ASPIRIN) 81 mg EC tablet Take 1 tablet by mouth two times aday for 28 days, THEN 1 tablet two times a day. metoprolol succinate ER (TOPROL XL) 100 mg Take 0.5 tablets by mouth two times a day. posaconazole DR (NOXAFIL) 100 mg tablet Take 3 tablets by mouth once daily. baclofen 10 mg tablet Take 1 tablet by mouth two times a day AND 2 tablets daily at bedtime. potassium chloride SR (MICRO-K) 10 mEq CR capsule Take 1 capsule by mouth every afternoon. bumetanide (BUMEX) 1 mg tablet Take 1 tablet by mouth every 12 hours. cyanocobalamin (VITAMIN B-12) 1,000 mcg tab Take 1,000 mcg by mouth. glucagon 3 mg/actuation nasal spray (BAQSIMI) ondansetron orally disintegrating (ZOFRAN ODT) 4 mg disintegrating tablet Take 4 mg by mouth every 6 hours as needed. DULCOLAX, BISACODYL, RECTAL by RECTAL route once daily as needed. dextrose 40 % gel Take 15 g by mouth as needed. insulin aspart U-100 (NOVOLOG) 100 unit/mL Use via insulin pump Max daily dose 100 units, DX: E10.65 senna-docusate (SENNA-S) 8.6-50 mg per tablet 1 tablet by ORAL/FEEDING TUBE route two times a day. lisinopril (ZESTRIL) 5 mg tablet Take 1 tablet by mouth once daily. [DISCONTINUED] lactobacillus rhamnosus (CULTURELLE) 10 billion cell capsule Take 1 capsule by mouthonce daily. Past Medical History: PAST MEDICAL HISTORY Diagnosis Date Asthma (HCC) 02/16/2021 Bladder cancer (HCC) 02/2021 urothelial carcinoma Diabetes mellitus type 1 (HCC) 04/13/2021 diagnosed at age 6 Fracture of tibia 09/2023 HTN (hypertension) 02/16/2021 Meningitis (HCC) 2022 Patient reported shunt placement (with subsequent removal and re-placement in September,) Neoplasm of bladder 02/16/2021 Obesity 02/16/2021 Palpitations 02/16/2021 Past Surgical History: PAST SURGICAL HISTORY Procedure Laterality Date CYSTECTOMY W/BI PELVIC LYMPHADENECTOMY 04/2021 CYSTO.PANENDO 05/25/2021 EXPLORATORY OF ABDOMEN 12/17/2021 Reduction of small-bowel volvulus PAST SURGICAL HISTORY OF right ovary removed PAST SURGICAL HISTORY OF ORIF right ankle PAST SURGICAL HISTORY OF 02/18/2021 TURBT REMOVAL OF BLADDER & NODES VAGINAL HYSTERECTOMY Social History: Tobacco Use: Never Review of Systems: Neck: (+) neck pain Musculoskeletal: (+) bilateral leg muscle spasms, (+) bilateral thigh swelling, (-) low back pain Skin: (+) heel wound Neurological: (+) bilateral leg numbness, (+) bilateral leg heaviness, (+) gait instability, (+) bilateral leg weakness Psychiatric: (+) claustrophobia, (+) difficulty initiating sleep OBJECTIVE Physical Exam: BP 124/57 Pulse 80 Ht 167.6 cm (5' 6 ) Wt 78 kg (172 lb) SpO2 97% BMI 27.76 kg/m General : Well appearing, well-hydrated, well nourished and alert SKIN: Head, neck, trunk, and extremities dry, intact and without lesions LUNGS: even and non-labored breathing, normal chest excursion NEURO/PSYCH: oriented to time, place, and person, speech normal, mental status intact GAIT: non-ambulatory/wheelchair MUSCULOSKELETAL: - Right Leg: Difficulty holding leg up against resistance; limited dorsiflexion, better plantar flexion; sensation intact but feels off to patient. - Left Leg: Better control and strength compared to right; able to hold leg up against resistance; good plantar and dorsiflexion; sensation intact but feels off to patient. (Strength was no more than 4/5 on either side) Neurological: - Reflexes: Upper extremity reflexes present; lower extremity reflexes diminished. - Sensation: Upper extremity sensation normal; lower extremity sensation intact but feels off to patient. Data Review: [facility] records independently reviewed Imaging and outside records independently reviewed Images independently reviewed with the patient Cervical MRI (08/26/2024) -- 1. No acute intracranial findings. Interval resolution of enhancement in the interpeduncular and prepontine cisterns. No mass or pathologic intracranial enhancement on current examination. Mild enlargement of the ventricular system when compared to most recent CT 025, stable position of the right parietal approach shunt. 2. Stable appearance of the cervical spine with anterior loculated CSF collection at C7-T2 levels resulting in posterior displacement and flattening of the cord. Intramedullary signal abnormality andcord expansion is seen below the anterior arachnoid collection. Remaining cord demonstrates normal morphology and signal intensity. No pathologic intradural enhancement. Cervical/Thoracic MRI (10/18/2023) -- Unchanged loculated arachnoid collection along the ventral lower cervical and upper thoracic spine with posterior cervicothoracic cord displacement, and not significantly changed from 05/09/2023. Persistent abnormal intramedullary cord signal abnormality immediat jo ann above and more prominently below the dorsally displaced cord extending to the mid T7 level, minimally improved from 05/09/2023, as detailed. Grossly stable diffuse abnormal leptomeningeal and scattered nodular pachymeningeal intradural enhancement throughout the cervical, thoracic, and upper lumbar spine, not significantly changed in appearance from 05/09/2023 although improved when compared with more remote studies. No new or progressive pathologic enhancement. Stable postoperative changes of T5-T6 dorsal decompression. Multilevel cervicothoracic spondylosis without high-grade spinal canal or neuroforaminal stenosis. ASSESSMENT/PLAN 1. Cervical stenosis of spinal canal (M48.02) 2. Degeneration of cervical intervertebral disc (M50.30) - MRI of the cervical spine shows narrowing around the spinal cord, but no significant compression or discoloration of the spinal cord. - Symptoms include heaviness in the legs from the umbilicus down, muscle spasms, and difficulty with ambulation. - Differential diagnosis includes potential lumbar spinal stenosis. - Consult with surgical colleagues to determine if surgical intervention is necessary; possible follow-up with neuromuscular department to assess nerve- muscle connection.. - If lumbar imaging is not available, will order lumbar spine MRI to rule out additional causes of leg heaviness. - Discussed conservative management options. - Advised to discontinue one muscle relaxant due to potential side effects of using two concurrently. - Will schedule follow-up based on discussion with spine surgeon. 3. 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 - No current signs of shunt malfunction; no headaches or visual disturbances reported. - Continue monitoring for any signs of increased intracranial pressure. - Follow-up with neurology to ensure shunt function is optimal. Patient understood and agreed with this plan. All questions and concerns were addressed and answered. Medical Decision Making: Level: 3 - Low Bianca Little PA-C Recording using Keelr software for draft documentation of the visit was discussed with the patient/authorized billing customer service representative; all questions welcomed and answered. Patient/authorized billing customer service representative agreed to proceed documented in this encounterThe [facility] History of Present illness Narrative* Peterson Gonsalez MD - 10/15/2024 12:20 PM EDT [facility] VIRTUAL VISIT REASON FOR VISIT: Follow up Visit conducted by Wilmar DE JESUS 59 year old female presenting for follow-up of [...] (7Fr x 24cm JJ) 12/16/[address] Montez and myself. 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 Extensive work-up was performed, including multiple LPs, meningeal biopsy (positive for fungal hyphae), 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 placement with clinical improvement with this an antifungal therapy. CT A/P w/IV contrast 06/15/2022 - [facility] CT Chest 06/15/2022 - [facility] CTU 12/25/2022 - New trace pelvic ascites. 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 Otherwise no evidence of intra- abdominal/pelvic metastases. CT Chest 12/25/2022 -Interval resolution of the previously noted centrilobular groundglass opacities. New patchy and streaky scarring/discoid atelectasis in the left lower lobe CTU 06/18/2023 - No evidence of new intra-abdominal/pelvic abnormalities Admitted at [facility] 06/25/2023 for SBO s/p ex lap, RONALD, bilateral ureteral reimplantation with stent placement (removed 07/26/2023). Underwent 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 replacement 10/11/2023. Reported initial improvement but then regression of her symptoms. Is undergoing work-up for this. She reports having intense muscle spasms. MRI 08/26/24 showed loculated CXF flattening cord, is seeing specialist. She reports not having or GI issues. CTU 10/02/24 - No recurrent urinary tract mass or abdominopelvic metastatic disease. New moderate right hydroureteronephrosis due to suspected stricture at the ureteral-conduit anastomosis. CT Chest 10/02/24 - Multiple indeterminate bilateral pulmonary nodules, majority stable since 2020. Few of the nodules are new since 2020. Few nodules are noted in the larger since 08/24/2024. Metastatic disease is not excluded. PATHOLOGY: Ureter resection 12/17/2021: A. Ureter, right, [...] LABS: Creatinine Date Value Ref Range Status 10/02/2024 0.75 0.58 - 0.96 mg/dL Final 08/28/2024 0.55 (L) 0.58 - 0.96 mg/dL Final 08/27/2024 0.52 (L) 0.58 - 0.96 mg/dL Final 08/26/2024 0.56 (L) 0.58 - 0.96 mg/dL Final No results found for: PSA URINALYSIS: pH, Arterial Date Value Ref Range Status 01/09/2022 7.40 7.35 - 7.45 Final Specific Railroad, Ur Date Value Ref Range Status 08/26/2024 1.029 1.005 - 1.030 Final Glucose, Urine Date Value Ref Range Status 08/26/2024 Negative Trace, Negative Final Bilirubin, Urine Date Value Ref Range Status 08/26/2024 Negative Negative Final Ketones, Urine Date Value Ref Range Status 08/26/2024 Negative Negative, Trace Final Hemoglobin/Blood,Ur Date Value Ref Range Status 08/26/2024 Negative Negative, Trace Final Protein, Urine Date Value Ref Range Status 08/26/2024 1+ (A) Trace, Negative Final Nitrites Date Value Ref Range Status 08/26/2024 Negative Negative Final WBC, Urine Date Value Ref Range Status 08/26/2024 6-10 /HPF (A) 0-5 /HPF Final IMAGING: CTU (10/02/24) Impression: No recurrent urinary tract mass or abdominopelvic metastatic disease. New moderate right hydroureteronephrosis due to suspected stricture at the ureteral-conduit anastomosis. CT Chest 10/02/24 IMPRESSION: 1. Multiple indeterminate bilateral pulmonary nodules, majority stable since 2020. Few of the nodules are new since 2020. Few nodules are noted in the larger since 08/24/2024. Metastatic disease is not excluded. 2. Interval enlargement of few mediastinal and hilar lymph nodes. ALLERGIES: ALLERGIES Allergen Reactions Demeral [Meperidine] GI Upset Nausea, pt states room spins Flexeril [Cyclobenz* Hives Orphenadrine Other: See Comments, Hives, Rash Versed [Midazolam] Mental Status Change MEDICATIONS: Current Outpatient Medications Medication Sig DOCUSATE SODIUM PO Take 100 mg by mouth once daily. HYDROcodone-Acetaminophen (NORCO) 10-325 mg per tablet Take 1 tablet by mouth every 4 hours as needed. FAMOTIDINE PO Take by mouth. metoprolol tartrate, short acting, (LOPRESSOR) 50 mg tablet Take 50 mg by mouth two times a day. polyethylene glycol 1450 MW, NF, BASE A, powd cholecalciferol, vitamin D3, (VITAMIN D3 PO) Take by mouth. acetaminophen (TYLENOL) 325 mg tablet Take 2 tablets by mouth every 6 hours as needed for pain. aspirin, enteric coated (ADULT LOW DOSE ASPIRIN) 81 mg EC tablet Take 1 tablet by mouth two times aday for 28 days, THEN 1 tablet two times a day. metoprolol succinate ER (TOPROL XL) 100 mg Take 0.5 tablets by mouth two times a day. posaconazole DR (NOXAFIL) 100 mg tablet Take 3 tablets by mouth once daily. lisinopril (ZESTRIL) 5 mg tablet Take 1 tablet by mouth once daily. baclofen 10 mg tablet Take 1 tablet by mouth two times a day AND 2 tablets daily at bedtime. potassium chloride SR (MICRO-K) 10 mEq CR capsule Take 1 capsule by mouth every afternoon. bumetanide (BUMEX) 1 mg tablet Take 1 tablet by mouth every 12 hours. cyanocobalamin (VITAMIN B-12) 1,000 mcg tab Take 1,000 mcg by mouth. glucagon 3 mg/actuation nasal spray (BAQSIMI) ondansetron orally disintegrating (ZOFRAN ODT) 4 mg disintegrating tablet Take 4 mg by mouth every 6 hours as needed. DULCOLAX, BISACODYL, RECTAL by RECTAL route once daily as needed. dextrose 40 % gel Take 15 g by mouth as needed. insulin aspart U-100 (NOVOLOG) 100 unit/mL Use via insulin pump Max daily dose 100 units, DX: E10.65 senna-docusate (SENNA-S) 8.6-50 mg per tablet 1 tablet by ORAL/FEEDING TUBE route two times a day. No current facility-administered medications for this visit. HISTORIES PAST MEDICAL HISTORY Diagnosis Date Asthma (HCC) 02/16/2021 Bladder cancer (HCC) 02/2021 urothelial carcinoma Diabetes mellitus type 1 (HCC) 04/13/2021 diagnosed at age 6 Fracture of tibia 09/2023 HTN (hypertension) 02/16/2021 Meningitis (HCC) 2022 Patient reported shunt placement (with subsequent removal and re-placement in September,) Neoplasm of bladder 02/16/2021 Obesity 02/16/2021 Palpitations [...] Never Smokeless tobacco: Never Vaping Use Vaping status: Never Used Substance Use Topics Alcohol use: Not Currently Drug use: Never REVIEW OF SYSTEMS General: SEE HPI Genitourinary: See HPI The remainder of the ROS was reviewed and negative. PHYSICAL EXAMINATION There were no vitals taken for this visit. General: alert, in no acute distress, and well-hydrated, well nourished PROBLEMS: 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 History of volvulus s/p ex lap, reduction of volvulus, and right ureteral reimplantation 12/16/2021. SBO s/p ex lap, RONALD, ureteral reimplantation at [facility] 06/26/2023. Hydronephrosis Pulmonary nodules Reviewed imaging, hydronephrosis is new although renal parenchyma is spared and there is no delayednephrogram, additionally renal function is normal. We have agreed on close monitoring rather than further work-up now given her myriad other significant issues. Will schedule renal US to monitor hydro, has regular blood work with her other physicians. Will also monitor small pulm nodules. Follow-up in [address] chest and renal US. I, Jenny hZu, performed data extraction and record review under the direction of Dr. Gonsalez. Electronically signed, Jenny Zhu Scribe STAFF PHYSICIAN NOTE OF PERSONAL INVOLVEMENT IN CARE The above noted history, physical, assessment and plan were reviewed with the provider and criticalportions of the H&P were confirmed. I evaluated and examined the patient and agree with the plan above and provided direct supervision of the above provider during this patient's care. I have communicated my name and active licensure. The patient's identity and physical location wereverified at the time of this visit. Either the patient or their legal billing customer service representative has been informed of the risks and benefits of -- and alternatives to -- treatment through a remote evaluation andconsents to proceed with the evaluation remotely. Visit complexity inherent to evaluation and management associated with medical care services that serve as the continuing focal point for all needed health care services and/or with medical care services that are part of ongoing care related to a patient s single, serious condition or a complex condition. Peterson Gonsaelz MD Medical Decision Making: Problems: Moderate: 1+ chronic illnesses with change Data: Unique test result(s) reviewed: 2 Unique test(s) ordered: 1 Risk: Low: Low risk from testing/treatment Medical Decision Making Level: 4 - Moderate documented in this encounterThe [facility]07-[facility]-2025 NoteHNO ID: [id number] Author: PETERSON GONSALEZ MD Service: ? Author Type: Physician Type: Progress Notes Filed: 10/15/2024 13:03 Note Text: [facility] VIRTUAL VISIT REASON FOR VISIT: Follow up Visit conducted by Wilmar DE JESUS 59 year old female presenting for follow-up of [...] (7Fr x 24cm JJ) 12/16/[address] Montez and myself. 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 Extensive work-up was performed, including multiple LPs, meningeal biopsy (positive for fungal hyphae), 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 placement with clinical improvement with this an antifungal therapy. CT A/P w/IV contrast 06/15/2022 - [facility] CT Chest 06/15/2022 - [facility] CTU 12/25/2022 - New trace pelvic ascites. 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 Otherwise no evidence of intra-abdominal/pelvic metastases. CT Chest 12/25/2022 -Interval resolution of the previously noted centrilobular groundglass opacities. New patchy and streaky scarring/discoid atelectasis in the left lower lobe CTU 06/18/2023 - No evidence of new intra-abdominal/pelvic abnormalities Admitted at [facility] 06/25/2023 for SBO s/p ex lap, RONALD, bilateral ureteral reimplantation with stent placement (removed 07/26/2023). Underwent 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 replacement 10/11/2023. Reported initial improvement but then regression of her symptoms. Is undergoing work-up for this. She reports having intense muscle spasms. MRI 08/26/24 showed loculated CXF flattening cord, is seeing specialist. She reports not having or GI issues. CTU 10/02/24 - No recurrent urinary tract mass or abdominopelvic metastatic disease. New moderate right hydroureteronephrosis due to suspected stricture at the ureteral-conduit anastomosis. CT Chest 10/02/24 - Multiple indeterminate bilateral pulmonary nodules, majority stable since 2020. Few of the nodules are new since 2020. Few nodules are noted in the larger since 08/24/2024. Metastatic disease is not excluded. PATHOLOGY: Ureter resection 12/17/2021: A. Ureter, right, [...] LABS: Creatinine Date Value Ref Range Status 10/02/2024 0.75 0.58 - 0.96 mg/dL Final 08/28/2024 0.55 (L) 0.58 - 0.96 mg/dL Final 08/27/2024 0.52 (L) 0.58 - 0.96 mg/dL Final 08/26/2024 0.56 (L) 0.58 - 0.96 mg/dL Final No results found for: PSA URINALYSIS: pH, Arterial Date Value Ref Range Status 01/09/2022 7.40 7.35 - 7.45 Final Specific Railroad, Ur Date Value Ref Range Status 08/26/2024 1.029 1.005 - 1.030 Final Glucose, Urine Date Value Ref Range Status 08/26/2024 Negative Trace, Negative Final Bilirubin, Urine Date Value Ref Range Status 08/26/2024 Negative Negative Final Ketones, Urine Date Value Ref Range Status 08/26/2024 Negative Negative, Trace Final Hemoglobin/Blood,Ur Date Value Ref Range Status 08/26/2024 Negative Negative, Trace Final Protein, Urine Date Value Ref Range Status 08/26/2024 1+ (A) Trace, Negative Final Nitrites Date Value Ref Range Status 08/26/2024 Negative Negative Final WBC, Urine Date Value Ref Range Status 08/26/2024 6-10 /HPF (A) 0-5 /HPF Final IMAGING: CTU (10/02/24) Impression: No recurrent urinary tract mass or abdominopelvic metastatic disease. New moderate right hydrour (more content not included)...[facility]06-26-2025 NoteHNO ID: [id number] Author: MARLENE CORDERO PA-C Service: ? Author Type: Physician Coordinate Measuring Machine Programmer Type: Progress Notes Filed: 10/09/2024 13:55 Note Text: Recording using Keelr software for draft documentation of the visit was discussed with the patient/authorized billing customer service representative; all questions welcomed and answered. 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 Chikis's shunt was previously removed at [facility] on 07/10/23 following surgery for bowel obstruction followed by worsening symptoms. Shunt was reimplanted on 10/11/23 with multiple episodes of slit like ventricles and previous hygroma development. At last visit her ventricles were again slit like at setting of 7 and was adjusted back to 8. Chikis saw no significant changes in symptoms after shunt being turned off. Shecontinues to struggle with episodes where her legs feel like electricity going through them and pop up involuntarily. Had surgery last month for fractured leg Focused Exam: Right frontal shunt site examined, no erythema, edema, warmth, or drainage noted. Incisions well approximated without evidence of wound dehiscence. Shunt is palpable. Focused Exam: Right frontal shunt site examined, [...] CN XII: Tongue protrusion full and midline Impression: Chikis Tobar is a pleasant 58 year old female with a history of communicating hydrocephalus. 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 Her shunt was re inserted on 10/11/23 with Certas valve. Chikis has had multiple episodes of slit like ventricles and hygromas with shunt set to 7. At last visit valve was turned to 8 and follow up imaging shows ventricles have relaxed. Continued spasticity in lower extremities without change. Recent fracture of left leg with surgery at [facility]. Outside cervical spine imaging does show cervical stenosis. She states she has never seen the spine team regarding this, consult placed. Follow up in [address] brain Plan: Shunt information Shunt type: Certas Initial settin New settin [facility] History of Present illness Narrative* Marlene Cordero PA-C - 10/09/2024 1:18 PM EDT Recording using Keelr software for draft documentation of the visit was discussed with the patient/authorized billing customer service representative; all questions welcomed and answered. 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 Chikis's shunt was previously removed at [facility] on 07/10/23 following surgery for bowel obstruction followed by worsening symptoms. Shunt was reimplanted on 10/11/23 with multiple episodes of slit like ventricles and previous hygroma development. At last visit her ventricles were again slit like at setting of 7 and was adjusted back to 8. Chikis saw no significantchanges in symptoms after shunt being turned off. She continues to struggle with episodes where herlegs feel like electricity going through them and pop up involuntarily. Had surgery last month for fractured leg Focused Exam: Right frontal shunt site examined, no erythema, edema, warmth, or drainage noted. Incisions well approximated without evidence of wound dehiscence. Shunt is palpable. Focused Exam: Right frontal shunt site examined, [...] CN XII: Tongue protrusion full and midline Impression: Chikis Tobar is a pleasant 58 year old female with a history of communicating hydrocephalus. 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 Her shunt was re inserted on 10/11/23 with Certas valve. Chikis has had multiple episodes of slit like ventricles and hygromas with shunt set to 7. At last visit valve was turned to 8 and follow up imaging shows ventricles have relaxed. Continued spasticity in lower extremities without change. Recent fracture of left leg with surgery at [facility]. Outside cervical spine imaging does show cervical stenosis. She states she has never seen the spine team regarding this, consult placed. Follow up in [address] brain Plan: Shunt information Shunt type: Certas Initial settin New settin Marlene Cordero PA-C documented in this encounterThe [facility]06-19-[facility] History of Present illness Narrative* Carolyn Echevarria, RT(R) - 10/02/2024 1:45 PM EDT Radiology Service Progress Note PATIENT NAME: Chikis Tobar DATE OF SERVICE: October 02, 2024 TIME: 1:35 PM PATIENT IDENTITY VERIFICATION COMPLETED USING TWO (2) IDENTIFIERS: Name and Date of confirmedby patient verbally. FALL SCREENING: Has the patient had 2 falls in the last year or 1 fall with injury or currently using an Ambulatory Assistive Device (Walker, Cane, Wheelchair, Crutches, etc.)? No PATIENT GENDER DATA: Assigned female at . status: : No status:NO. PATIENT RELEVANT IMPLANT DATA REVIEWED: Not Applicable PATIENT PRESENTS WITH AN IMPLANTABLE OR ATTACHED AIRCRAFT DESIGN ENGINEER: No RADIOLOGY DEPARTMENT: CT; Exam(s) Completed: Chest and Urogram PERIPHERAL IV DATA: Site assessment: Clean,Dry and Intact, Site disposition Discontinued SIGNED BY: RT Lisa(Randy) October 02, 2024 1:35 PM * Marlena Anaya RN - 10/02/2024 1:45 PM EDT Radiology Service Progress Note DATE OF SERVICE: October 02, 2024 TIME: 2:03 PM PATIENT WEIGHT: unable to weigh pt PATIENT IDENTITY VERIFICATION COMPLETED USING TWO (2) STANDARD IDENTIFIERS: Name and Date of confirmed by patient verbally. FALL SCREENING: Has the patient had 2 falls in the last year or 1 fall with injury or currently using an Ambulatory Assistive Device (Walker, Cane, Wheelchair, Crutches, etc.)? Yes, Patient High Riskfor Falls What interventions were put in place to prevent falls during this visit? Instructed Patient to Callfor Help if Needed, Offered Assistance with Transfers/Clothing, Instructed Patient to Remain Seated(Not on Exam Table) Until Exam, and Increased Observations by Caregivers PATIENT GENDER DATA: Assigned female at . status: : No status:NO. ALLERGIES: Reviewed and unchanged CONTRAST ALLERGY: No EXAM: CT -CONTRAST INDUCED NEPHROPATHY RISK FACTORS: History of Kidney surgery, Kidney neoplasm, Liver disease, and/or any recent Nephrotoxic Chemotherapy or other Nephrotoxic medications CREATININE: Creatinine Date Value Ref Range Status 08/28/2024 0.55 (L) 0.58 - 0.96 mg/dL Final 08/27/2024 0.52 (L) 0.58 - 0.96 mg/dL Final 08/26/2024 0.56 (L) 0.58 - 0.96 mg/dL Final Estimated Glomerular Filtration Rate Date Value Ref Range Status 08/28/2024 106 >=60 mL/min/1.73m Final Comment: Estimated Glomerular Filtration Rate (eGFR) is calculated using the 2020 CKD-EPI creatinine equation. This equation utilizes serum creatinine, sex, and age as parameters. The creatinine assay has traceable calibration to isotope dilution- mass spectrometry. Refer to KDIGO guidelines for clinical interpretation. In patients with unstable renal function, e.g. those with acute kidney injury, the eGFRmay not accurately reflect actual GFR. eGFR- Date Value Ref Range Status 05/25/2021 >60 Final P.O.C.T. RESULTS: POC done: Yes, See Lab Tab October 02, 2024 TREATMENT: N/A IV SITE: Ambulatory: A peripheral IV was started in the Left antecubital site with a Angio cath: 20gauge. IV SITE APPEARANCE: Clean,Dry and Intact SIGNATURE: Marlena Anaya RN PATIENT NAME: Chikis Tobar DATE: October 02, 2024 TIME: 2:03 PM documented in this encounterThe [facility]06-19-[facility]25 NoteHNO ID: [id number] Author: CAROLYN ECHEVARRIA RT(R) Service: ? Author Type: Technologist Type: Progress Notes Filed: 10/02/2024 13:36 Note Text: Radiology Service Progress Note PATIENT NAME: Chikis Tobar DATE OF SERVICE: October 02, 2024 TIME: 1:35 PM PATIENT IDENTITY VERIFICATION COMPLETED USING TWO (2) IDENTIFIERS: Name and Date of confirmed by patient verbally. FALL SCREENING: Has the patient had 2 falls in the last year or 1 fall with injury or currently using an Ambulatory Assistive Device (Walker, Cane, Wheelchair, Crutches, etc.)? No PATIENT GENDER DATA: Assigned female at . status: : No status: NO. PATIENT RELEVANT IMPLANT DATA REVIEWED: Not Applicable PATIENT PRESENTS WITH AN IMPLANTABLE OR ATTACHED AIRCRAFT DESIGN ENGINEER: No RADIOLOGY DEPARTMENT: CT; Exam(s) Completed: Chest and Urogram PERIPHERAL IV DATA: Site assessment: Clean,Dry and Intact, Site disposition Discontinued SIGNED BY: RT Lisa(R) October 02, 2024 1:35 [facility]06-19-2025 NoteHNO ID: [id number] Author: MARLENA ANAYA RN Service: ? Author Type: Registered Nurse Type: Progress Notes Filed: 10/02/2024 14:04 Note Text: Radiology Service Progress Note DATE OF SERVICE: October 02, 2024 TIME: 2:03 PM PATIENT WEIGHT: unable to weigh pt PATIENT IDENTITY VERIFICATION COMPLETED USING TWO (2) STANDARD IDENTIFIERS: Name and Date of confirmed by patient verbally. FALL SCREENING: Has the patient had 2 falls in the last year or 1 fall with injury or currently using an Ambulatory Assistive Device (Walker, Cane, Wheelchair, Crutches, etc.)? Yes, Patient High Risk for Falls What interventions were put in place to prevent falls during this visit? Instructed Patient to Call for Help if Needed, Offered Assistance with Transfers/Clothing, Instructed Patient to Remain Seated (Not on Exam Table) Until Exam, and Increased Observations by Caregivers PATIENT GENDER DATA: Assigned female at . status: : No status: NO. ALLERGIES: Reviewed and unchanged CONTRAST ALLERGY: No EXAM: CT -CONTRAST INDUCED NEPHROPATHY RISK FACTORS: History of Kidney surgery, Kidney neoplasm, Liver disease, and/or any recent Nephrotoxic Chemotherapy or other Nephrotoxic medications CREATININE: Creatinine Date Value Ref Range Status 08/28/2024 0.55 (L) 0.58 - 0.96 mg/dL Final 08/27/2024 0.52 (L) 0.58 - 0.96 mg/dL Final 08/26/2024 0.56 (L) 0.58 - 0.96 mg/dL Final Estimated Glomerular Filtration Rate Date Value Ref Range Status 08/28/2024 106 >=60 mL/min/1.73m? Final Comment: Estimated Glomerular Filtration Rate (eGFR) is calculated using the 2020 CKD-EPI creatinine equation. This equation utilizes serum creatinine, sex, and age as parameters. The creatinine assay has traceable calibration to isotope dilution-mass spectrometry. Refer to KDIGO guidelines for clinical interpretation. In patients with unstable renal function, e.g. those with acute kidney injury, the eGFR may not accurately reflect actual GFR. eGFR- Date Value Ref Range Status 05/25/2021 >60 Final P.O.C.T. RESULTS: POC done: Yes, See Lab Tab October 02, 2024 TREATMENT: N/A IV SITE: Ambulatory: A peripheral IV was started in the Left antecubital site with a Angio cath: 20 gauge. IV SITE APPEARANCE: Clean,Dry and Intact SIGNATURE: Marlena Anaya RN PATIENT NAME: Chikis Tobar DATE: October 02, 2024 TIME: 2:03 [facility]06-13-2025 Telephone encounter Note* Telephone Encounter - Clare Pedraza NP - 09/26/2024 12:41 PM EDT This pt is at [facility], increased pain with therapies, norco increased to 10/325 today prn. [id number] Miscellaneous Notes* Telephone Encounter - Clare Pedraza NP - 09/26/2024 12:41 PM EDT This pt is at [facility], increased pain with therapies, norco increased to 10/325 today prn. documented in this encounterC[facility] [id number] Telephone encounter Note* Telephone Encounter - Marlena Anaya RN - 09/12/2024 2:[address] new orders for Chest CT with IV contrast and Urogram w/wo IV contrast. Current order will be 1 year old and before pt has scans Thank You! Marlena Anaya RN [facility]2025 Miscellaneous Notes* Telephone Encounter - Marlena Anaya RN - 09/12/2024 2:[address] new orders for Chest CT with IV contrast and Urogram w/wo IV contrast. Current order will be 1 year old and before pt has scans Thank You! Marlena Anaya RN documented in this encounterThe [facility]05-29-2025 Instructions* Patient Instructions* Vamshi Spencer RN - 09/11/2024 10:37 AM EDT Images from the original note were not included. MD Aashish Wilson PA-C Sarah Solarz, RN Orthopedic Trauma Surgery Appointments Direct Office DVT Prevention: Finish remaining aspirin for a total of 30 days from surgery. Incision Care: [place]/sutures were removed today, if Steri-Strips were placed allow them to fall off on their own. If covered with a bandage you may remove the bandage this evening and leave uncovered, if there isdrainage present cover lightly as needed. Monitor the incisions for redness, purulent drainage. Call office with concerns. You may shower, do not soak or submerge (pools/tubs) the area with the incision, until it is fully healed, usually 3-4 weeks. Do not use lotions/creams etc on the incisions until fully healed. Activity: Weightbearing: Weightbearing as tolerated Range of motion: Range of motion as tolerated (no restriction) Physical Therapy: Continue PT/OT at nursing facility Pain Management: - Ice and elevate the surgical extremity to help with pain and swelling. You may begin using compression (such as a compression socks or a sleeve once the incisions are healed.) documented in this encounterThe [facility]05-[facility]-2025 NoteHNO ID: [id number] Author: VAMSHI SPENCER RN Service: ? Author Type: Registered Nurse Type: Progress Notes Filed: 09/11/2024 10:52 Note Text: Name: Chikis Tobar September 11, 2024 Date of Surgery/Injury: 08/23/24 Procedure(s): 1) left femur intramedullary nail, CPT 74961 Subjective: Patient presents today for post op splint/dressing change/removal and suture/staple removal. Patient reports: Doing well post operatively, pain is well controlled with current regimen. Patient has been WBAT to the operative extremity since surgery, but still not walking. She ss staying at an acute rehab ([facility] Objective: PHYSICAL EXAM: General:Alert, no distress, cooperative Left Lower Extremity: Skin: Incision/s healing well, sutures/lorna intact, edges well approximated, no erythremia, or other signs of infection Drainage: none. Swelling moderate. Sutures/lorna removed today under the direction of Dr. Morejon and steri-strips placed as needed. Vascular: left lower extremity warm with brisk cap refill. Neuro: Sensation intact in saphenous/sural/deep peroneal/superficial peroneal/tibial nerve distribution Musculoskeletal: No tenderness to palpation over fracture and decreased motion secondary to pain/stiffness. Images: Imaging was obtained today and reviewed by Dr. Morejon Assessment and Plan: -Pain management: Managed by the nursing rehab facility -Discussed non pharmacologic pain control: ice/elevation. Limit narcotic/opioid pain medications and discontinue by 6 weeks post op. Tylenol preferred -Post op DVT prophylaxis: Finish remaining Aspirin Rx -Lorna/Sutures removed and Steri-Strips placed if needed: Allow steri-strips to fall off on their own if used. -Ok to shower, pat incision area dry. No soaking/submerging -Physical/Occupational therapy: Continue PT at the nursing facility -Activity: Weightbearing: Weight bearing as tolerated and ROMAT -Follow up: 4-6 weeks with x-rays with Dr. Morejon or orthopedic trauma PA. Humza Spencer RN RN Post-Op Clinic oversight/resource Aashish Monge PA-C/Dr. Morejon [id number] History of Present illness Narrative* Humza Spencer- Val Lou RN - 09/11/2024 9:59 AM EDT Name: Chikis Tobar September 11, 2024 Date of Surgery/Injury: 08/23/24 Procedure(s): 1) left femur intramedullary nail, CPT 81420 Subjective: Patient presents today for post op splint/dressing change/removal and suture/staple removal. Patient reports: Doing well post operatively, pain is well controlled with current regimen. Patient has been WBAT to the operative extremity since surgery, but still not walking. She ss staying at an acute rehab ([facility] Objective: PHYSICAL EXAM: General:Alert, no distress, cooperative Left Lower Extremity: Skin: Incision/s healing well, sutures/lorna intact, edges well approximated, no erythremia, or other signs of infection Drainage: none. Swelling moderate. Sutures/lorna removed today under the direction of Dr. Morejon and steri- strips placed as needed. Vascular: left lower extremity warm with brisk cap refill. Neuro: Sensation intact in saphenous/sural/deep peroneal/superficial peroneal/tibial nerve distribution Musculoskeletal: No tenderness to palpation over fracture and decreased motion secondary to pain/stiffness. Images: Imaging was obtained today and reviewed by Dr. Morejon Assessment and Plan: -Pain management: Managed by the nursing rehab facility -Discussed non pharmacologic pain control: ice/elevation. Limit narcotic/opioid pain medications and discontinue by 6 weeks post op. Tylenol preferred -Post op DVT prophylaxis: Finish remaining Aspirin Rx -Lorna/Sutures removed and Steri-Strips placed if needed: Allow steri-strips to fall off on theirown if used. -Ok to shower, pat incision area dry. No soaking/submerging -Physical/Occupational therapy: Continue PT at the nursing facility -Activity: Weightbearing: Weight bearing as tolerated and ROMAT -Follow up: 4-6 weeks with x-rays with Dr. Morejon or orthopedic trauma PA. Humza Spencer RN RN Post-Op Clinic oversight/resource Aashish Monge PA-C/Dr. Morejon documented in this encounterThe [facility]05-29-2025 History of Present illness Narrative* Charleen Moore RT(R) - 09/11/2024 8:20 AM EDT Radiology Service Progress Note PATIENT NAME: Chikis Tobar DATE OF SERVICE: September 11, 2024 TIME: 9:59 AM PATIENT IDENTITY VERIFICATION COMPLETED USING TWO [...] PATIENT PRESENTS WITH AN IMPLANTABLE OR ATTACHED AIRCRAFT DESIGN ENGINEER: Yes Other insulin pump RADIOLOGY DEPARTMENT: General X-ray: Exam(s) Completed: Lower Extremity X- Ray(s): Femur, Left PERIPHERAL IV DATA: Not applicable SIGNED BY: RT Rabia(R) September 11, 2024 9:59 AM * Charleen Moore RT(R) - 09/11/2024 8:20 AM EDT Radiology Service Progress Note PATIENT NAME: Chikis Tobar DATE OF SERVICE: September 11, 2024 TIME: 11:00 AM PATIENT IDENTITY VERIFICATION COMPLETED USING TWO [...] PATIENT PRESENTS WITH AN IMPLANTABLE OR ATTACHED AIRCRAFT DESIGN ENGINEER: Yes Other insulin pump RADIOLOGY DEPARTMENT: General X-ray: Exam(s) Completed: Lower Extremity X- Ray(s): Femur, Left PERIPHERAL IV DATA: Not applicable SIGNED BY: RT Rabia(R) September 11, 2024 11:00 AM documented in this encounterThe [facility]05-29-2025 NoteHNO ID: [id number] Author: CHARLEEN MOORE RT(R) Service: Radiology Author Type: Rooming House Keeper Type: Progress Notes Filed: 09/11/2024 10:01 Note Text: Radiology Service Progress Note PATIENT NAME: Chikis Tobar DATE OF SERVICE: September 11, 2024 TIME: 9:59 AM PATIENT IDENTITY VERIFICATION COMPLETED USING TWO (2) IDENTIFIERS: Name and Date of confirmed by patient verbally. FALL SCREENING: Has the patient had 2 falls in the last year or 1 fall with injury or currently using an Ambulatory Assistive Device (Walker, Cane, Wheelchair, Crutches, etc.)? No PATIENT GENDER DATA: Assigned female at . status: : No status: NO. PATIENT RELEVANT IMPLANT DATA REVIEWED: Yes PATIENT PRESENTS WITH AN IMPLANTABLE OR ATTACHED AIRCRAFT DESIGN ENGINEER: Yes Other insulin pump RADIOLOGY DEPARTMENT: General X-ray: Exam(s) Completed: Lower Extremity X-Ray(s): Femur, Left PERIPHERAL IV DATA: Not applicable SIGNED BY: RT Rabia(Randy) September 11, 2024 9:59 [facility]05-29-2025 NoteHNO ID: [id number] Author: CHARLEEN MOORE RT(R) Service: Radiology Author Type: Rooming House Keeper Type: Progress Notes Filed: 09/11/2024 11:01 Note Text: Radiology Service Progress Note PATIENT NAME: Chikis Tobar DATE OF SERVICE: September 11, 2024 TIME: 11:00 AM PATIENT IDENTITY VERIFICATION COMPLETED USING TWO (2) IDENTIFIERS: Name and Date of confirmed by patient verbally. FALL SCREENING: Has the patient had 2 falls in the last year or 1 fall with injury or currently using an Ambulatory Assistive Device (Walker, Cane, Wheelchair, Crutches, etc.)? No PATIENT GENDER DATA: Assigned female at . status: : No status: NO. PATIENT RELEVANT IMPLANT DATA REVIEWED: Yes PATIENT PRESENTS WITH AN IMPLANTABLE OR ATTACHED AIRCRAFT DESIGN ENGINEER: Yes Other insulin pump RADIOLOGY DEPARTMENT: General X-ray: Exam(s) Completed: Lower Extremity X-Ray(s): Femur, Left PERIPHERAL IV DATA: Not applicable SIGNED BY: Charleen Moore, RT(R) September 11, 2024 11:00 [facility]05-15-2025 NoteHNO ID: [id number] Author: DION MONIQUE PA-C Service: Neurosurgery Author Type: Physician Coordinate Measuring Machine Programmer Type: Plan of Care Filed: 08/28/2024 16:48 Note Text: NEUROSURGERY PLAN OF CARE No definitive shunt valve setting reported in radiology report. Last setting was at 8 which it is not currently. Shunt field automobile adjuster reading is 7. Set back to 8 with confirmation multiple times with adjustment tool. Follow up with her neurosurgery office.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 surgery for bowel obstruction followed by worsening symptoms.shunt was reimplanted on 10/11/23 with multiple episodes of slit like ventricles and previous hygroma development with shunt set to 7. At last visit, Chikis continued to be limited by her stability and gait and requested her valve be adjusted back to 7. Following adjustment, she has seen improvement in mobility but developed intermittent headaches and nausea/vomiting. Focused Exam: Right frontal shunt site examined, [...] CN XII: Tongue protrusion full and midline Impression: Chikis Tobar is a pleasant 58 year old female with a history of communicating hydrocephalus. 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 Her shunt was re inserted on 10/11/23 with Certas valve. At last visit, Chikis continued to struggle with mobility and requested valve be adjusted back to 7. Since adjustment, she has noticed some improvement in activity but has developed new onset headaches and N/V. CT brain showed her ventricles have again decompressed at 7 without acute ischemia or hemorrhage. Discussed in detail possible benefits and risks of 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 adjustment. After discussion with Chikis, she would like to undergo shunt adjustment. Certas valve shunt was adjusted from 7 to 8. We discussed in detail the warning signs and symptoms of overdrainage as well as when to contact our office or present to the ED if concern is severe. Follow up in [address] brain Plan: Shunt information Shunt type: Certas Initial settin New settin Marlene [facility]04-17-2025 Telephone encounter Note* Telephone Encounter - Marlene Cordero PA-C - 07/31/2024 3:13 PM EDT Call to Chikis, We discussed symptoms and imaging which shows reduction in ventricles. She agreed to come for shuntadjustment tomorrow. Marlene Cordero PA-C [facility] Work Phone: 1(857) 197-231904-17-2025 Miscellaneous Notes* Telephone Encounter - Marlene Cordero PA-C - 07/31/2024 3:13 PM EDT Call to Chikis, We discussed symptoms and imaging which shows reduction in ventricles. She agreed to come for shuntadjustment tomorrow. Marlene Cordero PA-C * Telephone Encounter - Janett Armenta - 07/31/2024 10:44 AM EDT Pt called stating that the [facility] location is unable to push images through. She is having CT done today. documented in this encounterThe [facility]health System04-17-2025 History of Present illness Narrative* Carolyn Echevarria RT(R) - 07/31/2024 1:45 PM EDT Radiology Service Progress Note PATIENT NAME: Chikis Tobar DATE OF SERVICE: July 31, 2024 TIME: 2:04 PM PATIENT IDENTITY VERIFICATION COMPLETED USING TWO (2) IDENTIFIERS: Name and Date of confirmedby patient verbally. FALL SCREENING: Has the patient had 2 falls in the last year or 1 fall with injury or currently using an Ambulatory Assistive Device (Walker, Cane, Wheelchair, Crutches, etc.)? No PATIENT GENDER DATA: Assigned female at . status: : No status:NO. PATIENT RELEVANT IMPLANT DATA REVIEWED: Not Applicable PATIENT PRESENTS WITH AN IMPLANTABLE OR ATTACHED AIRCRAFT DESIGN ENGINEER: No RADIOLOGY DEPARTMENT: CT; Exam(s) Completed: Brain PERIPHERAL IV DATA: Not applicable SIGNED BY: RT Lisa(R) July 31, 2024 2:04 PM documented in this encounterThe [facility] System04-17-2025 NoteHNO ID: [id number] Author: CAROLYN ECHEVARRIA RT(R) Service: ? Author Type: Technologist Type: Progress Notes Filed: 07/31/2024 14:05 Note Text: Radiology Service Progress Note PATIENT NAME: Chikis Tobar DATE OF SERVICE: July 31, 2024 TIME: 2:04 PM PATIENT IDENTITY VERIFICATION COMPLETED USING TWO (2) IDENTIFIERS: Name and Date of confirmed by patient verbally. FALL SCREENING: Has the patient had 2 falls in the last year or 1 fall with injury or currently using an Ambulatory Assistive Device (Walker, Cane, Wheelchair, Crutches, etc.)? No PATIENT GENDER DATA: Assigned female at . status: : No status: NO. PATIENT RELEVANT IMPLANT DATA REVIEWED: Not Applicable PATIENT PRESENTS WITH AN IMPLANTABLE OR ATTACHED AIRCRAFT DESIGN ENGINEER: No RADIOLOGY DEPARTMENT: CT; Exam(s) Completed: Brain PERIPHERAL IV DATA: Not applicable SIGNED BY: RT Lisa(R) July 31, 2024 2:04 [facility]04-17-2025 Telephone encounter Note* Telephone Encounter - Janett Armenta - 07/31/2024 10:44 AM EDT Pt called stating that the [facility] location is unable to push images through. She is having CT done today. [facility]04-08-2025 Instructions* Patient Instructions* Noel Daniels MD - 07/22/2024 3:48 PM EDT You have received botulinum toxin A (Botox) injections today for lower extremity spasticity. Monitor the skin around the site of injections for any changes like redness, swelling, pain for at least acouple of days. The skin should be examined by a health wound care physician if changes persist or infection is suspected. If you notice any allergic reaction or problems swallowing, speaking, breathingseek immediate medical attention. Muscles/areas injected: Total dose 350 units - Bilateral hip flexors (ileo-psoas) - Bilateral Medial Hamstrings - Left Lateral Hamstrings Please schedule the next 45 minute Botulinum toxin A injection appointment in 13 weeks. Please notethat your next injections should not be scheduled less than 90 days from today. Additional changes/recommendations - Continue daily range of motion and stretching exercises - Continue working with OT and PT - Continue timely pressure relief and change in position Medications - Continue Baclofen [id number] Please contact our office via [employer] or by phone at [phone] with any questions or concerns. If your health insurance changes before the next injections, please contact our office at [phone] as soon as possible so we can submit a new pre- authorization if needed. Please note that we may not be able to perform the injections if your insurance changes and the treatment is not pre-authorized. documented in this encounterThe [facility] System04-08-2025 NoteHNO ID: [id number] Author: NOEL DANIELS MD Service: ? Author Type: Physician Type: Progress Notes Filed: 07/22/2024 16:40 Note Text: BOTULINUM TOXIN THERAPY Patient accompanied by : Self Current complaints: Spasticity and spasms Brief HPI: Chikis Tobar is a 58 year old right-handed female with past medical history of T1DM c/b DKA, urothelial carcinoma of the bladder s/p radical cystectomy and ileal conduit c/b SBO (Dec 2021), HTN, chronic sinusitis, asthma, fungal meningitis, myelitis and hydrocephalus status post 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 placement June 2022, externalization on 06/25/2023, removal 07/10/2023 and reimplantation on 10/15/2023. Patient experienced impaired mobility and ADLs after removal of shunt and noted minimal improvement in lower extremity function post shunt reimplantation. She was evaluated in [facility] spasticity clinic initially on 12/04/2023 for paraplegia and associated severe spasticity and flexor spasms. [facility]. She lives on her own in a ranch type house with all arrangement on the same level, She does transfers using a slide board at home. . She received initial botulinum toxin injection on 01/11/2024 and reports to clinic today for next set of botulinum toxin A injections. History since last visit: Reports good benefit with Botox. Continues to help with spasms, Reduced frequency and intensity of spasms. She also uses a wedge at night which keeps her leg in a spasm free position. She is able to sleep better at night due to reduced spasms. She has noticed improvement in upper body strength. Denies any side effects due to phenol neurolysis. Feels that she is still has sustained effect of phenol injection. She is happy with progress in Therapy. She was able to stand with platform walker and walk up to 25 feet consistently during therapy. -Most recent botulinum toxin injection: 04/15/24 -Hospitalization/ER visit: No -New weakness or numbness: No -Fever or flu like symptoms : No -Ongoing antibiotics: No -Change in bowel or bladder function: No -Other: Improving left heel wound, follows up with local wound clinic She will be reevaluated in lymphedema clinic soon Wheelchair decision pending with insurance approval/review -Anticoagulation/antiplatelet medications: Aspirin Spasticity treatment: -Home exercise routine: - -PT/OT: PT and OT- 2 times/week-helpful -Medications: Baclofen 10 mg-10 mg - 20 mg -Botulinum toxin therapy: Yes- effective -Other/orthosis: No Patient goals: -reduce lower extremity spasms -achieved (reduction in MACHO spasm frequency scale from 6 to 3 today) -Reduce discomfort/pain associated with spasms (achieved) -Improve participation in therapies (achieved) -Improve positioning in bed, wheelchair (achieved) -Improve mobility/transfers and ambulation (progressing) BT therapy effective? Yes - stiffness, spasms/cramps, active function and ease of care Duration of benefit: 10 weeks Side effects: No Spasm scale: 1=Mild spasms induced by stimulation (Spasm severity 2) Pain related to the purpose of the visit: No 0 on a scale of 0 to 10 Patient Entered Data PROMIS No data to display Spasticity NRS 07/22/2024 04/15/2024 -- Spasm Scale 1=Mild spasms induced by stimulation 2=Infrequent full spasms occuring less than once per hour Spasm Scale - Trendable Number 1 2 Spasm Scale No data to display Global Impression of Change No data to display Nutritional status: appetite , weight , swallowing - stable Driving issues: NA Safety concerns regarding living situations and safety at home: NA At risk for falling: Yes . slid down on the floor from wheelchair after falling asleep- no injury sustained Examination: BP 115/68 (BP Site: Right Arm, BP Position: Sitting, BP Cuff Size: Regular Adult) Pulse 81 Temp 37.8 ?C (100.1 ?F) (Temporal) SpO2 98% General: The patient is a well-nourished, well groomed who appears stated age. HEAD: Normocephalic EYE: -Appearance: Sclera nonicteric, PERRLA ENT: no rhinorrhea, MMM Lung: breathing unlabored in room air Skin: skin turgor is normal. Healed midline incision over anterior abdomen present. Left heel wound dressing and bandage present, No soakage or discharge. GI/: Insulin pump present over left anterior abdomen Ileal conduit with external collecting bag noted on right side draining clear urine. Extremity: edema noted in both lower extremities, reduced distal lower extremity edema Neuro: The patient was alert and oriented Articulated speech with intact comprehension Strength Right Left Shoulder abduction 4 5 Elbow flexion 5 5 Elbow extension 5 5 Wrist extension 5 5 Hip flexion 2+ 3+ Knee flexion 3+ 4 Knee extension 3+ 2+ Plantarflexion 2+ 4 Dorsiflexion 3 4 Strength: Bilateral FDS-FDP 5/5 Bilateral abductor digiti minimi 5/5 . Spasticity Right Left Shoulder 0 0 Elbow f (more content not included)...[facility]04-08-2025 History of Present illness Narrative* Noel Daniels MD - 07/22/2024 3:08 PM EDT Images from the original note were not included. BOTULINUM TOXIN THERAPY Patient accompanied by : Self Current complaints: Spasticity and spasms Brief HPI: Chikis Tobar is a 58 year old right-handed female with past medical history of T1DM c/b DKA, urothelial carcinoma of the bladder s/p radical cystectomy and ileal conduit c/b SBO (Dec 2021), HTN, chronic sinusitis, asthma, fungal meningitis, myelitis and hydrocephalus status post 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 plac ement June 2022, externalization on 06/25/2023, removal 07/10/2023 and reimplantation on 10/15/2023. Patient experienced impaired mobility and ADLs after removal of shunt and noted minimal improvement in lower extremity function post shunt reimplantation. She was evaluated in PM&R spasticity clinic initially on 12/04/2023 for paraplegia and associated severe spasticity and flexor spasms. [facility] on [facility]. She lives on her own in a ranch type house with all arrangement on the same level, She does transfers using a slide board at home. . She received initial botulinum toxin injection on 01/11/2024 and reports to clinic today for next set of botulinum toxin A injections. History since last visit: Reports good benefit with Botox. Continues to help with spasms, Reduced frequency and intensity of spasms. She also uses a wedge at night which keeps her leg in a spasm free position. She is able to sleep better at night due to reduced spasms. She has noticed improvement in upper body strength. Denies any side effects due to phenol neurolysis. Feels that she is still has sustained effect of phenol injection. She is happy with progress in Therapy. She was able to stand with platform walker and walk up to 25feet consistently during therapy. -Most recent botulinum toxin injection: 04/15/24 -Hospitalization/ER visit: No -New weakness or numbness: No -Fever or flu like symptoms : No -Ongoing antibiotics: No -Change in bowel or bladder function: No -Other: Improving left heel wound, follows up with local wound clinic She will be reevaluated in lymphedema clinic soon Wheelchair decision pending with insurance approval/review -Anticoagulation/antiplatelet medications: Aspirin Spasticity treatment: -Home exercise routine: - -PT/OT: PT and OT- 2 times/week-helpful -Medications: Baclofen 10 mg-10 mg - 20 mg -Botulinum toxin therapy: Yes- effective -Other/orthosis: No Patient goals: -reduce lower extremity spasms -achieved (reduction in MACHO spasm frequency scale from 6 to 3 today) -Reduce discomfort/pain associated with spasms (achieved) -Improve participation in therapies (achieved) -Improve positioning in bed, wheelchair (achieved) -Improve mobility/transfers and ambulation (progressing) BT therapy effective? Yes - stiffness, spasms/cramps, active function and ease of care Duration of benefit: 10 weeks Side effects: No Spasm scale: 1=Mild spasms induced by stimulation (Spasm severity 2) Pain related to the purpose of the visit: No 0 on a scale of 0 to 10 Patient Entered Data PROMIS No data to display Spasticity NRS 07/22/2024 04/15/2024 -- Spasm Scale 1=Mild spasms induced by stimulation 2=Infrequent full spasms occuring less than once per hour Spasm Scale - Trendable Number 1 2 Spasm Scale No data to display Global Impression of Change No data to display Nutritional status: appetite , weight , swallowing - stable Driving issues: NA Safety concerns regarding living situations and safety at home: NA At risk for falling: Yes . slid down on the floor from wheelchair after falling asleep- no injury sustained Examination: BP 115/68 (BP Site: Right Arm, BP Position: Sitting, BP Cuff Size: Regular Adult) Pulse 81 Temp37.8 C (100.1 F) (Temporal) SpO2 98% General: The patient is a well-nourished, well groomed who appears stated age. HEAD: Normocephalic EYE: -Appearance: Sclera nonicteric, PERRLA ENT: no rhinorrhea, MMM Lung: breathing unlabored in room air Skin: skin turgor is normal. Healed midline incision over anterior abdomen present. Left heel wounddressing and bandage present, No soakage or discharge. GI/: Insulin pump present over left anterior abdomen Ileal conduit with external collecting bag noted on right side draining clear urine. Extremity: edema noted in both lower extremities, reduced distal lower extremity edema Neuro: The patient was alert and oriented Articulated speech with intact comprehension Strength Right Left Shoulder abduction 4 5 Elbow flexion 5 5 Elbow extension 5 5 Wrist extension 5 5 Hip flexion 2+ 3+ Knee flexion 3+ 4 Knee extension 3+ 2+ Plantarflexion 2+ 4 Dorsiflexion 3 4 Strength: Bilateral FDS-FDP 5/5 Bilateral abductor digiti minimi 5/5 . Spasticity Right Left Shoulder 0 0 Elbow flexors 0 0 Elbow extensors 0 0 Wrist flexors 0 0 Wrist extensors 0 0 Finger flexors 0 0 Finger extensors 0 0 Hip adductors 2 2 Knee extensors 0. 0 Knee flexors 1+ 2 Plantarflexors 1 0 Modified Warren Scale 0 - No increase in tone 1 - Slight increase in tone (catch and release at end of ROM) 1+ - Slight increase in tone, manifested by a catch, followed by minimal resistance throughout remainder (less than half of ROM) 2 - Marked increase in tone through most of the ROM, but affected part(s) easily moved 3 - Considerable increase in tone; passive movement difficult 4 - Affected part(s) rigid in flexion or extension Hip flexor spasticity 2 bilaterally Bilateral lower extremity spasms noted: Bilateral hip flexion, knee flexion. Spasms observed: RUE: no right upper extremity spasms LUE: no left upper extremity spasms RLE: right lower extremity spasms Flexor spasm LLE: left lower extremity spasms Flexor spasm Assistance required: wheelchair Gait: Needs 1 person assistance for transfer from wheelchair to exam table. Video of gait training with physical therapy observed-difficulty with clearance of both lower extremity (R>L), reduced hip flexion bilaterally and reduced knee flexion on right side, needs two-person assistance. Some inconsistent component of dynamic hip adductor spasticity noted. UNIVERSAL PROTOCOL / SAFETY CHECKLIST Procedure to be Performed: Chemodenervation with botulinum toxin A Sign In: A Moment of CARE was completed. Personnel directly involved with the procedure wore the appropriate PPE (Personal Protective Equipment). Special equipment: EMG -portable Patient/Surrogate Stated/Verified: PATIENT VERIFIED(optional for EMERGENT procedures): Patient name, Date of , Relevant allergies, and The intended procedure Time Out Communication: Intended patient and procedure match the source documents. Consent documented and matches the intended procedure. No relevant labs, photos, and/or imaging studies were applicable for review. Correct side/site marked and visible. Medications required for procedure verified. No fire risk assessment and interventions applicable. No implant(s) inserted. Sign Out: SIGN OUT (optional for EMERGENT procedures): No specimen collected. No instruments, equipment or retained foreign bodies applicable. Post-procedure follow-up management communicated and Plan of Care Visit completed when applicable. Noel Daniels MD The risks, benefits and alternatives of the procedure were explained. Written Consent Obtained: yes - 07/22/2024 Clinician(s) performing the injections: Noel Daniels Coordinate Measuring Machine Programmer: Concepción Gutierrez LPN The patient was positioned Sitting and Supine on exam table. Brand of toxin injected: Botox. After skin preparation with alcohol, a total dose of 350 units were injected as follows: Muscle Limb/Side Dose Guidance Comments Hip flexor LLE 100 units EMG 3 sites Semimembranosus LLE 50 units EMG 1 sites Biceps femoris LLE 70 units EMG 2 sites Semitendinosis LLE 30 units EMG 1 sites Hip flexor RLE 50 units EMG 1 sites Medial hamstrings RLE 50 units EMG 1 sites Total Dose: 350 0 units discarded. Dilution: 100 units / 1 ml LOT #: [id number] 4 Expiration Date: Month: 5 Year: 27 The injections were uneventful. Minimal bleeding occurred at the injection sites which resolved before discharging patient from clinic. 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 She has paraplegia with severe spasticity and flexor spasms which is limiting her functions and participation in therapies. Previous botulinum toxin injections have helped with spasm and stiffness. Exam notable for LE sp asms/spasticity. Discussed dose reduction in right hip flexors and knee flexors given difficulty inadvancement of right lower extremity notable on video of gait training with physical therapy. She is appropriate candidate for chemodenervation with botulinum toxin A and agreeable to the updated plan. 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 Follow up in 13 weeks for nextset of Botulinum toxin A injections. Consider dose reduction in left hip flexors, left hamstrings and discussed possible exclusion of right hamstrings. Continue ROM and stretching exercise at home Continue working with physical and Occupational Therapy as scheduled. Continue timely pressure relief when changing position Continue baclofen 10 mg-10 mg - 20 mg. Patient will contact office to combine phenol neurolysis during next botulinum toxin injection appointment if needed. May add small dose for right hip adductors if continues to notice hip adduction while walking on right side and planning to hold off on phenol during next visit. Time spent with patient: 45 mins Noel Daniels MD Physical Medicine & [facility]hab [facility] documented in [facility]The [facility]04-[facility]25 NoteHNO ID: [id number] Author: MARLENE CORDERO PA-C Service: ? 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 Chikis's shunt was previously removed at [facility] on 07/10/23 following surgery for bowel obstruction followed by worsening symptoms.shunt was reimplanted on 10/11/23 with multiple episodes of slit like ventricles and previous hygroma development with shunt set to 7. Her valve is currently set to 8. Since last visit, Chikis continues to work with therapy without much improvement in gait. She is limited by weakness, lymphedema and spasticity. She is unable to walk with walker on her own. No new onset symptoms. Focused Exam: Right frontal shunt site examined, [...] CN XII: Tongue protrusion full and midline Wheel chair dependent Impression: Chikis Tobar is a pleasant 58 year old female with a history of communicating hydrocephalus. 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 Her shunt was re inserted on 10/11/23 with Certas valve. Chikis's ambulation and leg movement continue to be severely limited by weakness, spasticity and lymphedema. She is wheel chair dependent but continues to work with PT and can walk very short distance at PT with a walker. CT brain shows slight interval increase in ventricular system without acute abnormality. Discussed in detail possible benefits and risks of 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 adjustment. After discussion with Chikis, she would like to undergo shunt adjustment. Certas valve shunt was adjusted from 8 to 7. We discussed in detail the warning signs and symptoms of overdrainage as well as when to contact our office or present to the ED if concern is severe. Due to previous slight like ventricles in the past at 7, Chikis understands she must repeat CT brain in 2 weeks. 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 Chikis's shunt was previously removed at [facility] on 07/10/23 following surgery for bowel obstruction followed by worsening symptoms.shunt was reimplanted on 10/11/23 with multiple episodes of slit like ventricles and previous hygroma development with shunt set to 7. Her valve is currently set to 8. Since last visit, Chikis continues to work with therapy without much improvement in gait. She is limited by weakness, lymphedema and spasticity. She is unable to walk with walker on her own. No new onset symptoms. Focused Exam: Right frontal shunt site examined, [...] CN XII: Tongue protrusion full and midline Wheel chair dependent Impression: Chikis Tobar is a pleasant 58 year old female with a history of communicating hydrocephalus. 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 Her shunt was re inserted on 10/11/23 with Certas valve. Chikis's ambulation and leg movement continue to be severely limited by weakness, spasticity and lymphedema. She is wheel chair dependent but continues to work with PT and can walk very short distance at PT with a walker. CT brain shows slight interval increase in ventricular system without acute abnormality. Discussed in detail possible benefits and risks of 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 adjustment. After discussion with Chikis, she would like to undergo shunt adjustment. Certas valve shunt was adjusted from 8 to 7. We discussed in detail the warning signs and symptoms of overdrainage as well as when to contact our office or present to the ED ifconcern is severe. Due to previous slight like ventricles in the past at 7, Chikis understands she must repeat CT brain in 2 weeks. Plan: Shunt information Shunt type: Certas Initial settin New settin Marlene Cordero PA-C documented in this encounterThe [facility]03-20-[facility]25 Telephone encounter Note * Telephone Encounter - Marlene Cordero PA-C - 07/03/2024 3:54 PM EDT Multiple calls to Chikis with no answer. Detailed message left explaining CT brain results. Her shunt is currently set to 8/off. Gave instructions to set up follow up visit. Call back number provided. Marlene Cordero PA-C [facility] Work Phone: [phone]) 528-753203-20-2025 Miscellaneous Notes* Telephone Encounter - Marlene Cordero PA-C - 07/03/2024 3:54 PM EDT Multiple calls to Chikis with no answer. Detailed message left explaining CT brain results. Her shunt is currently set to 8/off. Gave instructions to set up follow up visit. Call back number provided. Marlene Cordero PA-C documented in this encounterThe [facility]03-20-2025 Radiology Diagnostic study [facility] [address] [place] [address] CT Scan Report Signed Patient: Chikis Tobar MR#: [id number] : 1965 Acct:[id number] Age/Sex: 59 / F ADM Date: 5 Loc: CT Room: Type: [facility] Attending Dr: Chip Hagen MD Copies to: Chip Hagen MD~ Ordering Provider: Chip Hagen MD Date of Service: 07/03/24 CT/CT angio abd aorta runoff: I70.213 - Atherosclerosis of benton arteries of extremiti... CTA abdomen, pelvis, and bilateral lower extremities . CLINICAL DATA: Difficulty walking. Lymphedema. History of bladder cancer.. TECHNIQUE: Intravenous contrast-enhanced CT angiography of the abdomen, pelvis, and bilateral lowerextremities was performed. Axial, sagittal, coronal, and 3D- dimensional reconstructions were created and reviewed. This CT exam was performed using one or more of the following dose reduction techniques: Automated exposure control, adjustment of the mA and/or kV according to patient size, or use ofiterative reconstruction technique. COMPARISON: CT abdomen and pelvis 05/31/2022. FINDINGS: Lung Bases: Mild lung scarring. Organs:Liver gallbladder spleen pancreas adrenal glands and kidneys all appear unremarkable. Abdominal aorta appears normal in caliber with mild calcification. No aneurysm, dissection or rupture is seen. No critical stenosis or occlusion involving the major visceral branches. Mild calcification involving the iliac vasculature without critical stenosis or occlusion.[ GI: Stomach is grossly unremarkable. Small bowel appears nondilated. No acute colonic abnormality is seen. Right hemicolectomy changes.[ Pelvis:[Urinary bladder has been removed. Ileal conduit is present.] Peritoneum/Retroperitoneum:No free air or free fluid or lymphadenopathy.[ Abd wall/Bones:Abdominal wall demonstrates no acute findings. Osseous structures demonstrate degenerative change.[ Lower extremities: Left : Left common femoral artery demonstrates mild calcification without critical stenosis or occlusion. Mild calcification involving the high school principal branches without occlusion. Left SFA demonstratesmild calcification without critical stenosis or occlusion. Popliteal artery demonstrates mild calcification without occlusion. Tibioperoneal trunk, anterior tibial, posterior tibial and peroneal arteries demonstrate calcification and appear patent to the level of the ankle. Evaluation of the level of the ankle is suboptimal due to streak artifact from the patient's tibial hardware. Visualized portions of the dorsalis pedis artery appear patent. Distal soft tissue swelling is present. No fluid collection or mass. Musculature appears atrophic. Hardware involving the tibia. Osseous structures demonstrate degenerative change. Right: Right common femoral artery demonstrates mild calcification without critical stenosis or occlusion. Mild calcification involving the high school principal branches without occlusion. Right SFA demonstrates mild calcification without critical stenosis or occlusion. Popliteal artery demonstrates mild calcification without occlusion. Tibioperoneal trunk, anterior tibial, posterior tibial and peroneal arteries demonstrate calcification and appear patent to the level of the ankle. Dorsalis pedis artery appears patent. Distal soft tissue swelling is present. No fluid collection or mass. Musculature appears atrophic. Osseous structures demonstrate degenerative change. CT/CT angio abd aorta runoff IMPRESSION: 1. Distal bilateral lower extremity soft tissue swelling. No definite occlusion is seen involving the major vessels of the lower extremities. 2. No acute intra-abdominal process. Impression dictated by: Afshin Jones Jr., D.O.07/03/2024 3:41 PM Dictation Location: [place] [address] Transcribed By: [facility] 07/03/24 1541 Dictated By: Afshin Jones Jr, DO 07/03/24 1531 Signed By: 07/03/24 1541 [facility]03-19-2025 NoteHNO ID: [id number] Author: JAMIE MCCARTY MD Service: ? Author Type: Physician Type: Progress Notes Filed: 08/02/2024 22:15 Note Text: INFECTIOUS DISEASES OUTPATIENT FOLLOW-UP NOTE SERVICE DATE: July 02, 2024 Last visit:April 10, 2024 Summary of HPI HPI: 59 year old female with medical history of [...] performed and she was transferred to [facility]. She was found to have DKA. A CT head showed hydrocephalus with MRI on May 29, 2022 showing multiple areas of enhancement in the anterior sabra, medulla, and in the spine at the level of C7-T3 and L1-S2. Multiple taps were performed and were unsuccessful. A 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 was placed and patient underwent a meningeal biopsy 06/26/2022 which pathology showed hyphae elements. PCR sent from multiple tissue samples and CSF next gen sequencing were all negative. She was started on posaconazole to cover molds. While taylor can present with pseudohyphae, it did not grow, with concerns for other molds rather than yeast CT 08/16/2022 Relative normalization of ventricular caliber with resolved asymmetric slit like appearance of the right lateral ventricle with shunt in place since 08/16/2022. Small subdural hygromas over the frontal lobes (8 mm). LFTs 08/16 normal . 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 was adjusted from 4 to 7 Posaconazole level 2.4 on 08/21/22 Developed a facial rash in September 2022, mainly the malar area, a few spots on the forehead. Dx'd with rosacea by PCP and started on metronidazole gel. She was seeing wound care at [facility] for her sacral area ulcer. Rx'd with medical honey gel and silicone bordered foam bandage. Healed over several months At her ID clinic visit 10/18/22 she was doing very well. The rash had improved over malar region with a few papules on forehead. Appeared c/w rosacea, [...] decrease in smal bifrontal convexity subdural hygromas. 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 Has gained wt. Urology felt her urothelial CA was CHRISTINE on surveillance imaging, urine cytology. Continue surveillance imaging q 6 months. [place] remains in place. ID clinic 01/15/23, doing fairly well overall, tolerating posaconazole. Strength improving and ambulatory, using a cane PRN. No 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 issues. Balance has improved but still [...] of antifungals and then reassess with imaging. ID clinic 03/19/23: Seemed to have reached a plateau with her neuro recovery, with stable balance problems and various areas of sensory loss. Neuro exam showed abnormal Romberg (unable to stand feet together with eyes OPEN), balance deficits, some decreased sensation upper back region (around T5) and patchy areas both anterolateral thighs. Ambulatory with a cane, improving wt, and overall motor strength. Had a near fall in prior week with (more content not included)...[facility]03-18-2025 History of Present illness Narrative* Carolyn Echevarria RT(R) - 07/01/2024 2:15 PM EDT Radiology Service Progress Note PATIENT NAME: Chikis Tobar DATE OF SERVICE: July 01, 2024 TIME: 2:12 PM PATIENT IDENTITY VERIFICATION COMPLETED USING TWO (2) IDENTIFIERS: Name and Date of confirmedby patient verbally. FALL SCREENING: Has the patient had 2 falls in the last year or 1 fall with injury or currently using an Ambulatory Assistive Device (Walker, Cane, Wheelchair, Crutches, etc.)? No PATIENT GENDER DATA: Assigned female at . status: : No status:NO. PATIENT RELEVANT IMPLANT DATA REVIEWED: Not Applicable PATIENT PRESENTS WITH AN IMPLANTABLE OR ATTACHED AIRCRAFT DESIGN ENGINEER: No RADIOLOGY DEPARTMENT: CT; Exam(s) Completed: Brain PERIPHERAL IV DATA: Not applicable SIGNED BY: RT Lisa(Randy) July 01, 2024 2:12 PM documented in this encounterThe [facility]03-18-2025 NoteHNO ID: [id number] Author: CAROLYN ECHEVARRIA RT(aRndy) Service: ? Author Type: Technologist Type: Progress Notes Filed: 07/01/2024 14:12 Note Text: Radiology Service Progress Note PATIENT NAME: Chikis Tobar DATE OF SERVICE: July 01, 2024 TIME: 2:12 PM PATIENT IDENTITY VERIFICATION COMPLETED USING TWO (2) IDENTIFIERS: Name and Date of confirmed by patient verbally. FALL SCREENING: Has the patient had 2 falls in the last year or 1 fall with injury or currently using an Ambulatory Assistive Device (Walker, Cane, Wheelchair, Crutches, etc.)? No PATIENT GENDER DATA: Assigned female at . status: : No status: NO. PATIENT RELEVANT IMPLANT DATA REVIEWED: Not Applicable PATIENT PRESENTS WITH AN IMPLANTABLE OR ATTACHED AIRCRAFT DESIGN ENGINEER: No RADIOLOGY DEPARTMENT: CT; Exam(s) Completed: Brain PERIPHERAL IV DATA: Not applicable SIGNED BY: Carolyn Echevarria, RT(R) July 01, 2024 2:12 [facility]02-11-2025 Radiology Diagnostic study [facility] Main [place] [address] [place], [place] [id number] Ultrasound Report Signed Patient: Chikis Tobar MR#: [id number] : 1965 Acct:[id number] Age/Sex: 58 / F ADM Date: 5 Loc: Room: Type: [facility] Attending Dr: Juliette Berumen DO Ordering Provider: Juliette Berumen DO Date of Service: 05/27/24 US/US arterial pvr rest LE: 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 Copies to: Juliette Berumen DO~ Bilateral lower extremity segmental arterial Doppler examination Indication for study: Nonhealing left leg wound PROCEDURE: The right arm blood pressure is 138 in the left arm blood pressure is135 mmHg. At all segments examined in both lower extremities the pressures are incompressible. The right first toe pressure is 72 mmHg giving a toe brachial index of 0.52. Left first toe pressure is 75 mmHg giving a toe brachial index of 0.54. Waveforms by plethysmography are mildly blunted bilaterally. US/US arterial pvr rest LE IMPRESSION: Quantitative information from this examination is limited as the pressures were incompressible throughout both lower extremities. The toe brachial indices are diminished bilaterally suggesting at least mild to moderateperipheral arterial occlusive disease at rest. Impression dictated by: Chip Hagen M.D.05/27/2024 4:11 PM Dictation Location: [facility]04 Tech: Chelsie Serra Transcribed By: YAMILET 05/27/24 1611 Dictated By: Chip Hagen MD 05/27/24 1608 Signed By: 05/27/24 1611 [facility] Work Phone: 1(385) 647-858302-11-2025 Radiology Diagnostic [facility] Main [address] [address] Ultrasound Report Signed Patient: Chikis Tobar MR#: [id number] : 1965 Acct:[id number] Age/Sex: 58 / F ADM Date: 5 Loc: Room: Type: [facility] CLI Attending Dr: Juliette Berumen DO Ordering Provider: Juliette Berumen DO Date of Service: 05/27/24 US/US venous duplex LE BI: M79.89 - Other specified soft tissue disorders Copies to: Juliette Berumen DO~ BILATERAL LOWER EXTREMITY VENOUS DUPLEX INDICATION: Swollen painful legs PROCEDURE: Color-flow duplex scanning is used to interrogate the deep venous system of the right and left lower extremities. The common femoral vein, femoral vein and popliteal vein show good compressibility with normal proximal and distal augmentation. The posterior tibial veins are compressible and the peroneal veins are poorly visualized. US/US venous duplex LE BI IMPRESSION: NO EVIDENCE FOR DEEP VEIN THROMBOSIS OR PROXIMAL SUPERFICIAL THROMBOPHLEBITIS INTHE RIGHT OR LEFT LOWER EXTREMITY. Impression dictated by: Chip Hagen M.D.05/27/2024 4:08 PM [facility]ictation [facility] Tech: Nikky Rohini Transcribed By: YAMILET 05/27/24 1608 Dictated By: Chip Hagen MD 05/27/24 1607 Signed By: 05/27/24 1608 [facility] Work Phone: 1(807) 910-753102-10-2025 Telephone encounter Note* Telephone Encounter - Marlene Cordero PA-C - 05/26/2024 3:34 PM EST Call returned, Chikis admits an intermittent 3/10 pain at her shunt tubing site which resolves in minutes. She denies any changes in her symptoms or signs/symptoms of infection related to her shunt. She did recently take antbiotics for wound on her foot that has healed. She will continue to monitor her symptoms.If any signs of systemic infection or changes in symptoms we will repeat CT brain and evaluate in office. All questions answered. Marlene Cordero PA-C [facility] Work Phone: 1(294) 499-555302-10-2025 Miscellaneous Notes* Telephone Encounter - Marlene Cordero PA-C - 05/26/2024 3:34 PM EST Call returned, Chikis admits an intermittent 3/10 pain at her shunt tubing site which resolves in minutes. She denies any changes in her symptoms or signs/symptoms of infection related to her shunt. She did recently take antbiotics for wound on her foot that has healed. She will continue to monitor her symptoms.If any signs of systemic infection or changes in symptoms we will repeat CT brain and evaluate in office. All questions answered. Marlene Cordero PA-C documented in this encounterThe [facility]02-06-2025 Evaluation note* Diagnosis Onset Date Resolution Status Admit Date Abrasion of abdominal wall acuteFebruary 2024 11:55am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acuteFebruary 2024 11:55amPressure injury of left heel, unstageableacuteFebruary 2024 11:55amSpastic diplegia, acquired, lower extremityacuteFebruary 2024 11:55amPeripheral artery diseaseacuteFebruary 2024 11:44amDiarrheaacute June 20, 2024 1:28pmRectal bleedingacuteMarch 2024 1:28pmSpastic diplegia, acquired, lower extremityacuteMarch 2024 1:28pmChronic venous insufficiencyacuteApril 2024 2:51pmImpaired mobility and ADLsacuteApril 2024 2:51pmLymphedemaacuteApril 2024 2:51pmPeripheral artery disease acuteApril 2024 2:51pmPressure injury of left heel, stage 3acuteApril 2024 2:51pmPressure injury of left heel, unstageableacuteApril 2024 2:51pmType 1 diabetes mellitusacuteApril 2024 2:51pmWound infectionacute July 24, 2024 2:51pm [facility] Work Phone: 1(288) 695-660002-06-2025 Evaluation note* Diagnosis Onset Date Resolution Status Admit Date 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 acuteFebruary 2024 11:55amAbrasion of abdominal walldeletedFebruary 2024 11:55amPressure injury of left heel, unstageabledeletedFebruary 2024 11:55amSpastic diplegia, acquired, lower extremitydeletedFebruary 2024 11:55amPeripheral artery diseaseacuteFebruary 2024 11:44amDiarrheaacute March 2024 1:28pmRectal bleedingacuteMarch 2024 1:28pmSpastic diplegia, acquired, lower extremitydeletedMarch 2024 1:28pmChronic venous insufficiencyacuteApril 2024 11:01amImpaired mobility and ADLsacuteApril 2024 11:01amLymphedemaacuteApril 2024 11:01amPeripheral artery diseaseacuteApril 2024 11:01amPressure injury of left heel, stage 3acute Kacie 2024 11:01amWound infectionacuteApril 2024 11:01amPressure injury of left heel, unstageabledeletedApril 2024 11:01amType 1 diabetes mellitusdeletedApril 2024 11:01amChronic venous insufficiencyacuteApril 2024 2:07pmHTN (hypertension)acuteApril 2024 2:07pmHydrocephalus acuteApril 2024 2:07pmPeripheral artery diseaseacuteApril 2024 2:07pmPrerenal azotemiaacuteApril 2024 2:07pmPressure injury of left heel, stage 3acuteApril 2024 2:07pmSpastic hypertoniaacuteApril 2024 2:07pmTransitional cell bladder canceracuteApril 2024 2:07pmType 1 diabetes mellitus with diabetic peripheral angiopathy without gangreneacuteApril 2024 2:07pmType 1 diabetes mellitus with hyperglycemiaacuteApril 2024 2:07[facility] Work Phone: 1(181) 346-932901-14-2025 Evaluation note* Diagnosis Onset Date Resolution Status Admit Date Chronic venous insufficiency acuteJanuary 2024 1:15pmHTN (hypertension)acuteJanuary 2024 1:15pm HydrocephalusacuteJanuary 2024 1:15pmTransitional cell bladder canceracute April 29, 2024 1:15pmType 1 diabetes mellitus with diabetic peripheral angiopathy without gangreneacuteJanuary 2024 1:15pmType 1 diabetes mellitus with hyperglycemiaacuteJanuary 2024 1:15pmFoot ulcer, leftdeleted April 29, 2024 1:15pmChronic venous insufficiencyacuteFebruary 2024 2:25pmImpaired mobility and ADLsacuteFebruary 2024 2:25pmLymphedemaacute May 20, 2024 2:25pmPressure injury of left heel, unstageableacuteFebruary 2024 2:25pmType 1 diabetes mellitusacuteFebruary 2024 2:25pmAbrasion of abdominal wallacuteFebruary 2024 11:55am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 acuteFebruary 2024 11:55amPressure injury of left heel, unstageableacute May 22, 2024 11:55amSpastic diplegia, acquired, lower extremityacute May 22, 2024 11:55am [facility] Work Phone: 1(989) 250-234601-14-2025 Evaluation note* Diagnosis Onset Date Resolution Status Admit Date Chronic venous insufficiency acuteJanuary 2024 1:15pmHTN (hypertension)acuteJanuary 2024 1:15pm HydrocephalusacuteJanuary 2024 1:15pmTransitional cell bladder canceracute April 29, 2024 1:15pmType 1 diabetes mellitus with diabetic peripheral angiopathy without gangreneacuteApruary 2024 1:15pmType 1 diabetes mellitus with hyperglycemiaacuteJanuary 2024 1:15pmFoot ulcer, leftdeleted April 29, 2024 1:15pmAbrasion of abdominal wallacuteFebruary 2024 11:55am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acuteFebruary 2024 11:55amPressure injury of left heel, unstageableacuteFebruary 2024 11:55amSpastic diplegia, acquired, lower extremityacuteFebruary 2024 11:55amChronic venous insufficiencyacuteFebruary 2024 9:25amImpaired mobility and ADLsacute February 2024 9:25amLymphedemaacuteFebruary 2024 9:25amPressure injury of left heel, unstageableacuteFebruary 2024 9:25amType 1 diabetes mellitusacuteFebruary 2024 9:25am [facility] Work Phone: 1(845) 913-905001-14-2025 Evaluation note* Diagnosis Onset Date Resolution Status Admit Date Chronic venous insufficiency acuteJanuary 2024 1:15pmHTN (hypertension)acuteJanuary 2024 1:15pm HydrocephalusacuteJanuary 2024 1:15pmTransitional cell bladder canceracute April 29, 2024 1:15pmType 1 diabetes mellitus with diabetic peripheral angiopathy without gangreneacuteJanuary 2024 1:15pmType 1 diabetes mellitus with hyperglycemiaacuteJanuary 2024 1:15pmFoot ulcer, leftdeleted April 29, 2024 1:15pmAbrasion of abdominal wallacuteFebruary 2024 11:55am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acuteFebruary 2024 11:55amPressure injury of left heel, unstageableacuteFebruary 2024 11:55amSpastic diplegia, acquired, lower extremityacuteFebruary 2024 11:55amPeripheral artery diseaseacuteFebruary 2024 11:44amChronic venous insufficiencyacuteMarch 2024 3:20pmImpaired mobility and ADLsacuteMarch 2024 3:20pmLymphedema acuteMarch 2024 3:20pmPeripheral artery diseaseacuteMarch 2024 3:20pm Pressure injury of left heel, stage 3acuteMarch 2024 3:20pmPressure injury of left heel, unstageableacuteMarch 2024 3:20pmType 1 diabetes mellitus acuteMarch 2024 3:20pmDiarrheaacuteMarch 2024 1:28pmRectal bleeding acuteMarch 2024 1:28pmSpastic diplegia, acquired, lower extremityacuteMarch 2024 1:28pm [facility] Work Phone: 1(221) 414-387901-14-2025 Evaluation note* Diagnosis Onset Date Resolution Status Admit Date Chronic venous insufficiency acuteJanuary 2024 1:15pmHTN (hypertension)acuteJanuary 2024 1:15pm HydrocephalusacuteJanuary 2024 1:15pmTransitional cell bladder canceracute April 29, 2024 1:15pmType 1 diabetes mellitus with diabetic peripheral angiopathy without gangreneacuteJanuary 2024 1:15pmType 1 diabetes mellitus with hyperglycemiaacuteJanuary 2024 1:15pmFoot ulcer, leftdeleted April 29, 2024 1:15pmAbrasion of abdominal wallacuteFebruary 2024 11:55am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acuteFebruary 2024 11:55amPressure injury of left heel, unstageableacuteFebruary 2024 11:55amSpastic diplegia, acquired, lower extremityacuteFebruary 2024 11:55amPeripheral artery diseaseacuteFebruary 2024 11:44amDiarrheaacuteMarch 2024 1:28pmRectal bleedingacuteMarch 2024 1:28pmSpastic diplegia, acquired, lower extremity acuteMarch 2024 1:28pmChronic venous insufficiencyacuteMarch 2024 1:01pmImpaired mobility and ADLsacuteMarch 2024 1:01pmLymphedemaacuteMarch 2024 1:01pmPeripheral artery diseaseacuteMarch 2024 1:01pmPressure injury of left heel, stage 3acuteMarch 2024 1:01pmPressure injury of left heel, unstageableacuteMarch 2024 1:01pmType 1 diabetes mellitusacuteMarch 2024 1:01pm [facility] Work Phone: 1(666) 553-867201-07-2025 NoteHNO ID: [id number] Author: NOEL DANIELS MD Service: ? Author Type: Physician Type: Progress Notes Filed: 04/22/2024 16:33 Note Text: PROCEDURE NOTE: Obturator nerve Block with Phenol (aqueous 6%) for spasticity management / Phenol Neurolysis Patient accompanied by : Friend Current complaints: Spasticity and spasms Brief HPI: Chikis Tobar is a 58 year old right-handed female with past medical history of T1DM cb/ DKA, urothelial carcinoma of the bladder s/p radical cystectomy and ileal conduit c/b SBO (Dec 2021), HTN, chronic sinusitis, asthma, fungal meningitis, myelitis and hydrocephalus status post 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 placement June 2022, externalization on 06/25/2023, removal 07/10/2023 and reimplantation on 10/15/2023. Patient experienced impaired mobility and functions after removal of shunt and noted minimal improvement in lower extremity function post shunt reimplantation. She was evaluated in [facility] spasticity clinic initially on 12/04/2023 for paraplegia and associated severe spasticity and flexor spasms. She was discharged home from [facility] rehab facility on 02/15/2024. She received initial botulinum toxin injection and phenol nerve block on 01/11/2024. She reports to clinic today for subsequent phenol injections. History since last visit: Received Botox injection last week with dose increment to 400 units. Feels that she still has more spasms. She could not refill her baclofen due to duplicate prescription. She feels that initial Botox + combination worked well and would like to continue the same for subsequent visits. -Hospitalization/ER visit: No -New weakness or numbness: No -Fever or flu like symptoms : No -Ongoing antibiotics: No -Other: - -Anticoagulation/antiplatelet medications: Aspirin -Denies any concerns with bowel and bladder function Spasticity treatment: -Home exercise routine: - -PT/OT: Planning to start physical -Medications: Baclofen 10 mg twice daily. Prefers to be on prior dosing which was 10 mg-10 mg - 20 mg. -Other/orthosis: No Patient goals: -reduce lower extremity spasms -Reduce discomfort/pain associated with spasms -Improve participation in therapies -Improve positioning in bed, wheelchair -Improve mobility/transfers and ambulation Pain related to the purpose of the visit: No 0 on a scale of 0 to 10 Patient Entered Data PROMIS No data to display Spasticity NRS 04/15/2024 -- Spasm Scale 2=Infrequent full spasms occuring less than once per hour Spasm Scale - Trendable Number 2 Spasm Scale No data to display Global Impression of Change No data to display Nutritional status: appetite , weight , swallowing - stable Driving issues: NA Safety concerns regarding living situations and safety at home: NA At risk for falling: Yes . No falls recently Examination: BP 123/71 (BP Site: Right Arm, BP Position: Sitting, BP Cuff Size: Regular Adult) Pulse 75 Temp 37.2 ?C (98.9 ?F) (Temporal) General: The patient is a well-nourished, well groomed who appears stated age. HEAD: Normocephalic EYE: -Appearance: Sclera nonicteric, PERRLA ENT: no rhinorrhea, MMM Lung: breathing unlabored in room air Skin: skin turgor is normal. Healed midline incision over anterior abdomen present. GI/: Insulin pump present over left anterior abdomen present Ileal conduit with external collecting bag noted on right side draining clear urine. Extremity: edema noted in both lower extremities. Neuro: The patient was alert and oriented Articulated speech with intact comprehension Able to provide treatment history Emotional lability present Spasticity Right Left Shoulder 0 0 Elbow flexors 0 0 Elbow extensors 0 0 Wrist flexors 0 0 Wrist extensors 0 0 Finger flexors 0 0 Finger extensors 0 0 Hip adductors 2 2 Knee extensors 0. 0 Knee flexors 1+ 2 Plantarflexors 1 0 Modified Warren Scale 0 - No increase in tone 1 - Slight increase in tone (catch and release at end of ROM) 1+ - Slight increase in tone, manifested by a catch, followed by minimal resistance throughout remainder (less than half of ROM) 2 - Marked increase in tone through most of the ROM, but affected part(s) easily moved 3 - Considerable increase in tone; passive movement difficult 4 - Affected part(s) rigid in flexion or extension Spasms observed: RUE: no right upper extremity spasms LUE: no left upper extremity spasms RLE: right lower extremity spasms Spasm with right hip adduction LLE: left lower extremity spasms Spasm with left hip adduction Assistance required: wheelchair Gait: Needs supervision for transfer from wheelchair to exam table UNIVERSAL PROTOCOL / SAFETY CHECKLIST Procedure to be Performed: Chemodenervation with botulinum toxin A Sign In: A Moment of CARE was completed. Personnel directly involved with the procedure wore the appropriate PPE (Personal Protective Equipment). Special equipment: EMG -portable (more content not included)...[facility]01-07-2025 History of Present illness Narrative* Noel Daniels MD - 04/22/2024 4:01 PM EST Images from the original note were not included. PROCEDURE NOTE: Obturator nerve Block with Phenol (aqueous 6%) for spasticity management / Phenol Neurolysis Patient accompanied by : Friend Current complaints: Spasticity and spasms Brief HPI: Chikis Tobar is a 58 year old right-handed female with past medical history of T1DM cb/ DKA, urothelial carcinoma of the bladder s/p radical cystectomy and ileal conduit c/b SBO (Dec 2021), HTN, chronic sinusitis, asthma, fungal meningitis, myelitis and hydrocephalus status post 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 plac ement June 2022, externalization on 06/25/2023, removal 07/10/2023 and reimplantation on 10/15/2023. Patient experienced impaired mobility and functions after removal of shunt and noted minimal improvement in lower extremity function post shunt reimplantation. She was evaluated in [facility] initially on 12/04/2023 for paraplegia and associated severe spasticity and flexor spasms. Shewas discharged home from [facility] rehab facility on 02/15/2024. She received initial botulinum toxin injection and phenol nerve block on 01/11/2024. She reports to clinic today for subsequent phenol injections. History since last visit: Received Botox injection last week with dose increment to 400 units. Feels that she still has more spasms. She could not refill her baclofen due to duplicate prescription. She feels that initial Botox + combination worked well and would like to continue the same for subsequent visits. -Hospitalization/ER visit: No -New weakness or numbness: No -Fever or flu like symptoms : No -Ongoing antibiotics: No -Other: - -Anticoagulation/antiplatelet medications: Aspirin -Denies any concerns with bowel and bladder function Spasticity treatment: -Home exercise routine: - -PT/OT: Planning to start physical -Medications: Baclofen 10 mg twice daily. Prefers to be on prior dosing which was 10 mg-10 mg - 20 mg. -Other/orthosis: No Patient goals: -reduce lower extremity spasms -Reduce discomfort/pain associated with spasms -Improve participation in therapies -Improve positioning in bed, wheelchair -Improve mobility/transfers and ambulation Pain related to the purpose of the visit: No 0 on a scale of 0 to 10 Patient Entered Data PROMIS No data to display Spasticity NRS 04/15/2024 -- Spasm Scale 2=Infrequent full spasms occuring less than once per hour Spasm Scale - Trendable Number 2 Spasm Scale No data to display Global Impression of Change No data to display Nutritional status: appetite , weight , swallowing - stable Driving issues: NA Safety concerns regarding living situations and safety at home: NA At risk for falling: Yes . No falls recently Examination: BP 123/71 (BP Site: Right Arm, BP Position: Sitting, BP Cuff Size: Regular Adult) Pulse 75 Temp37.2 C (98.9 F) (Temporal) General: The patient is a well-nourished, well groomed who appears stated age. HEAD: Normocephalic EYE: -Appearance: Sclera nonicteric, PERRLA ENT: no rhinorrhea, MMM Lung: breathing unlabored in room air Skin: skin turgor is normal. Healed midline incision over anterior abdomen present. GI/: Insulin pump present over left anterior abdomen present Ileal conduit with external collecting bag noted on right side draining clear urine. Extremity: edema noted in both lower extremities. Neuro: The patient was alert and oriented Articulated speech with intact comprehension Able to provide treatment history Emotional lability present Spasticity Right Left Shoulder 0 0 Elbow flexors 0 0 Elbow extensors 0 0 Wrist flexors 0 0 Wrist extensors 0 0 Finger flexors 0 0 Finger extensors 0 0 Hip adductors 2 2 Knee extensors 0. 0 Knee flexors 1+ 2 Plantarflexors 1 0 Modified Warren Scale 0 - No increase in tone 1 - Slight increase in tone (catch and release at end of ROM) 1+ - Slight increase in tone, manifested by a catch, followed by minimal resistance throughout remainder (less than half of ROM) 2 - Marked increase in tone through most of the ROM, but affected part(s) easily moved 3 - Considerable increase in tone; passive movement difficult 4 - Affected part(s) rigid in flexion or extension Spasms observed: RUE: no right upper extremity spasms LUE: no left upper extremity spasms RLE: right lower extremity spasms Spasm with right hip adduction LLE: left lower extremity spasms Spasm with left hip adduction Assistance required: wheelchair Gait: Needs supervision for transfer from wheelchair to exam table UNIVERSAL PROTOCOL / SAFETY CHECKLIST Procedure to be Performed: Chemodenervation with botulinum toxin A Sign In: A Moment of CARE was completed. Personnel directly involved with the procedure wore the appropriate PPE (Personal Protective Equipment). Special equipment: EMG -portable Patient/Surrogate Stated/Verified: PATIENT VERIFIED(optional for EMERGENT procedures): Patient name, Date of , Relevant allergies, and The intended procedure Time Out Communication: Intended patient and procedure match the source documents. Consent documented and matches the intended procedure. No relevant labs, photos, and/or imaging studies were applicable for review. Correct side/site marked and visible. Medications required for procedure verified. No fire risk assessment and interventions applicable. No implant(s) inserted. Sign Out: SIGN OUT (optional for EMERGENT procedures): No specimen collected. No instruments, equipment or retained foreign bodies applicable. Post-procedure follow-up management communicated and Plan of Care Visit completed when applicable. Noel Daniels MD The risks, benefits and alternatives of the procedure were explained. Written Consent Obtained: yes - 04/22/2024 Clinician(s) performing the injections: Noel Daniels; Derick Romero (brain injury medicine fellow) Coordinate Measuring Machine Programmer: Concepción Guteirrez LPN; Sheree Hernandez RN The patient was positioned Supine on exam table. Procedure: Phenol Neurolysis- Obturator Nerve Antiseptic preparation: betadine and alchohol Anesthesia (cutaneous): No Medication Injected: Phenol in water (6%) LOT#: [id number] EXP: 04/27/24 Site prepared with aseptic precaution. Target site identified with surface landmark and ultrasound guidance. Needle inserted under ultrasound guidance and advanced to anterior division (between Add Longus-Brevis) of obturator nerve. Contraction of the adductor compartment muscles confirmed on lowest stimulation 1 mA and 2.5 mL of 6% aqueous phenol injected perineurally after negative aspiration for each division bilaterally. No muscle contractions noted on incremental stimulation following nerve block. Total dose injected = 5 ml. No complications observed. Patient tolerated the procedure well. Reduced adductor spasticity noted following the injections on both sides. Reduced frequency of spasms noted while transferring patientback to wheelchair. Verbal instructions given. Patient left in satisfactory condition. 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 She has paraplegia with severe spasticity and flexor spasms which is limiting her functions and participation in therapies. She reports good response to initial phenol injection and interested in repeat injections. Examcontinues to show spasms and spasticity in lower extremity, predominant adductor spasms noted bilaterally. She is appropriate candidate for neurolysis of obturator nerve with phenol and agreeable to the plan. Of note, patient reports frustration with decline in her function following shunt but states that she is will need some more time to adjust to this change. She would like additional opinion/evaluation regarding her condition and recommended to discuss same with neurosurgery. (G82.22) Chronic incomplete spastic paraplegia (HCC) (primary encounter diagnosis) (M62.838) Spasm of muscle (G04.91) Myelitis (HCC) (Z74.09, Z78.9) Impaired mobility and activities of daily living Plan: Bilateral anterior obturator nerve block with phenol (aqueous 6%). Ultrasound guidance used in addition to e-stim. Plan for next phenol injection in combination with Botox injection patient will contact office prior to Botox injection if interested in combining both procedures. Patient/family education: Educated patient and her friend on role of PM&R. Discussed role of different spasticity management options including medications and injection procedures. Answered all the questions to the best of my capacity. Discussed possible causes of increased spasms-lower extremity swelling, healing wound over left heel. It is appropriate for patient to consider concurrent treatment with oral medication- baclofen andmay benefit with additional dose. Patient unclear why her dose was reduced from 40 mg/day to 20 mg/day continue interested in going back to prior dose. Called local pharmacy to clarify on baclofen prescription. Per patient she was denied prescription stating it was too early for refill. Pharmacy confirmed that they will need a new prescription as they cannot dispense medication because of duplicate scripts in the system. New prescription of provided: Baclofen 10 mg-10 mg - 20 mg. Time spent with patient: 45 mins Noel Daniels MD Physical Medicine & Rehab [facility] documented in this encounterThe [facility] Instructions* Patient Instructions* Noel Daniels MD - 04/22/2024 2:33 PM EST You have received Anterior Obturator Nerve Block with Phenol today for lower extremity spasticity. Monitor the skin around the site of injections for any changes like redness, swelling, pain for at least a couple of days. The skin should be examined by a health wound care physician if changes persist or infection is suspected. If you notice any allergic reaction or problems swallowing, speaking, breathing seek immediate medical attention. Neurolysis/Nerve Block with phenol: - B/L Anterior Obturator nerve Additional changes/recommendations - Continue daily range of motion and stretching exercises - Continue working with OT and PT - Continue timely pressure relief and change in position Additional changes/recommendations - Continue daily range of motion and stretching exercises - Continue working with OT and PT - Continue timely pressure relief and change in position Medications - Continue Baclofen. We'll clarify the dosing/script issue with pharmacy. Please contact our office via [employer] or by phone at [phone] with any questions or concerns. If your health insurance changes before the next injections, please contact our office at [phone] as soon as possible so we can submit a new pre- authorization if needed. Please note that we may not be able to perform the injections if your insurance changes and the treatment is not pre-authorized. documented in this encounterThe [facility]12-31-2024 Instructions* Patient Instructions* Noel Daniels MD - 04/15/2024 12:42 PM EST You have received botulinum toxin A (Botox) injections today for lower extremity spasticity. Monitor the skin around the site of injections for any changes like redness, swelling, pain for at least acouple of days. The skin should be examined by a health wound care physician if changes persist or infection is suspected. If you notice any allergic reaction or problems swallowing, speaking, breathingseek immediate medical attention. Muscles/areas injected: Total dose 400 units - Bilateral hip flexors (ileo-psoas) - Bilateral Medial Hamstrings - Left Lateral Hamstrings Please schedule an appointment in 1 week for phenol neurolysis. Please schedule the next 45 minute Botulinum toxin A injection appointment in 3 months or 13 weeks.Please note that your next injections should not be scheduled less than 90 days from today. Additional changes/recommendations - Continue daily range of motion and stretching exercises - Continue working with OT and PT - Continue timely pressure relief and change in position Medications - Continue Baclofen 10mg-0-10mg - Additional dose of Baclofen 10mg BID PRN. Please contact our office via [employer] or by phone at [phone] with any questions or concerns. If your health insurance changes before the next injections, please contact our office at [phone] as soon as possible so we can submit a new pre- authorization if needed. Please note that we may not be able to perform the injections if your insurance changes and the treatment is not pre-authorized. documented in this encounterThe [facility]12-31-2024 NoteHNO ID: [id number] Author: NOEL DANIELS MD Service: ? Author Type: Physician Type: Progress Notes Filed: 04/15/2024 13:14 Note Text: BOTULINUM TOXIN THERAPY Patient accompanied by : Self Current complaints: Spasticity and spasms Brief HPI: Chikis Tobar is a 58 year old right-handed female with past medical history of T1DM cb/ DKA, urothelial carcinoma of the bladder s/p radical cystectomy and ileal conduit c/b SBO (Dec 2021), HTN, chronic sinusitis, asthma, fungal meningitis, myelitis and hydrocephalus status post 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 placement June 2022, externalization on 06/25/2023, removal 07/10/2023 and reimplantation on 10/15/2023. Patient experienced impaired mobility and functions after removal of shunt and noted minimal improvement in lower extremity function post shunt reimplantation. She was evaluated in [facility] spasticity clinic initially on 12/04/2023 for paraplegia and associated severe spasticity and flexor spasms. She was discharged home from [facility] on 02/15/2024. She received initial botulinum toxin injection on 01/11/2024 and reports to clinic today for next set of botulinum toxin A injections. History since last visit: Reports good benefit with Botox. Did not experience any spasms while effect lasted. Improved lower extremity control with Botox injection. Now she has increased spasms and stiffness in both lower extremity specially while doing activities or working with therapies. Discharge from [facility]. Worked with home therapies. Feels that she regressed with home therapies. She is hoping to regain her functions back with outpatient therapies. She lives on her own in a ranch type house with all arrangement on the same level. Her cousin and nephew available for assistance as needed. She does transfers using a slide board at home. Her cousin drove her today. She has got a new handicap van from her neighbors. -Hospitalization/ER visit: No -New weakness or numbness: No -Fever or flu like symptoms : No -Ongoing antibiotics: No -Other: Improving left heel wound, follows up with local wound clinic Plan to start physical therapy for lymphedema -Anticoagulation/antiplatelet medications: Aspirin -Allergy to cow milk protein: No Spasticity treatment: -Home exercise routine: - -PT/OT: planning to start next year -Medications: Baclofen 10 mg-10 mg, tolerating well, denies any side effects. Per patient her PCP ordered twice daily dosage for her. As per previous report patient was taking 10 mg-10 mg - 20 mg of baclofen. He is interested in dose adjustment and feels that she may benefit with additional dose -Botulinum toxin therapy: Initial visit -Other/orthosis: No -Denies any concerns with bowel and bladder function Patient goals: -reduce lower extremity spasms -achieved (reduction in MACHO spasm frequency scale to 5 from 6 today, reports resolution of spasms for 10 weeks after Botox) -Reduce discomfort/pain associated with spasms -Improve participation in therapies -Improve positioning in bed, wheelchair -Improve mobility/transfers and ambulation BT therapy effective? Yes - stiffness, spasms/cramps, active function and ease of care Duration of benefit: 10 weeks Side effects: No Spasm scale: 2=Infrequent full spasms occuring less than once per hour (Spasm severity 3) Pain related to the purpose of the visit: No 0 on a scale of 0 to 10 Patient Entered Data PROMIS No data to display Spasticity NRS No data to display Spasm Scale No data to display Global Impression of Change No data to display Nutritional status: appetite , weight , swallowing - stable Driving issues: NA Safety concerns regarding living situations and safety at home: NA At risk for falling: Yes . No falls recently Examination: BP 135/72 (BP Site: Right Arm, BP Position: Sitting, BP Cuff Size: Large Adult) Pulse 75 Temp 37.5 ?C (99.5 ?F) (Temporal) General: The patient is a well-nourished, well groomed who appears stated age. HEAD: Normocephalic EYE: -Appearance: Sclera nonicteric, PERRLA ENT: no rhinorrhea, MMM Lung: breathing unlabored in room air Skin: skin turgor is normal. Healed midline incision over anterior abdomen present. GI/: Insulin pump present over left anterior abdomen present Ileal conduit with external collecting bag noted on right side draining clear urine. Extremity: edema noted in both lower extremities. Neuro: The patient was alert and oriented Articulated speech with intact comprehension Strength Right Left Shoulder abduction 4 5 Elbow flexion 5 5 Elbow extension 5 5 Wrist extension 5 5 Hip flexion 2+ 3+ Knee flexion 3+ 3+ Knee extension 3+ 2+ Plantarflexion 2+ 3+ Dorsiflexion 3 3+ Strength: Bilateral FDS-FDP 5/5 Bilateral abductor digiti minimi 5/5 Bilateral EPL 5/5 bilateral FPL 5/5 Right EHL-not tested Left EHL 1+/5. Spasticity Right Left Shoulder 0 0 Elb (more content not included)...[facility]12-31-2024 History of Present illness Narrative* Neol Daniels MD - 04/15/2024 11:53 AM EST Images from the original note were not included. BOTULINUM TOXIN THERAPY Patient accompanied by : Self Current complaints: Spasticity and spasms Brief HPI: Chikis Tobar is a 58 year old right-handed female with past medical history of T1DM cb/ DKA, urothelial carcinoma of the bladder s/p radical cystectomy and ileal conduit c/b SBO (Dec 2021), HTN, chronic sinusitis, asthma, fungal meningitis, myelitis and hydrocephalus status post 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 plac ement June 2022, externalization on 06/25/2023, removal 07/10/2023 and reimplantation on 10/15/2023. Patient experienced impaired mobility and functions after removal of shunt and noted minimal improvement in lower extremity function post shunt reimplantation. She was evaluated in [facility] spasticity clinic initially on 12/04/2023 for paraplegia and associated severe spasticity and flexor spasms. Shewas discharged home from [facility] on 02/15/2024. She received initial botulinum toxin injection on 01/11/2024 and reports to clinic today for next set of botulinum toxin A injections. History since last visit: Reports good benefit with Botox. Did not experience any spasms while effect lasted. Improved lower extremity control with Botox injection. Now she has increased spasms and stiffness in both lower extremity specially while doing activities or working with therapies. Discharge from [facility]. Worked with home therapies. Feels that she regressed with home therapies. She is hoping to regain her functions back with outpatient therapies. She lives on her own in a ranch type house with all arrangement on the same level. Her cousin and nephew availablefor assistance as needed. She does transfers using a slide board at home. Her cousin drove her today. She has got a new handicap van from her neighbors. -Hospitalization/ER visit: No -New weakness or numbness: No -Fever or flu like symptoms : No -Ongoing antibiotics: No -Other: Improving left heel wound, follows up with local wound clinic Plan to start physical therapy for lymphedema -Anticoagulation/antiplatelet medications: Aspirin -Allergy to cow milk protein: No Spasticity treatment: -Home exercise routine: - -PT/OT: planning to start next year -Medications: Baclofen 10 mg-10 mg, tolerating well, denies any side effects. Per patient her PCP ordered twice daily dosage for her. As per previous report patient was taking 10 mg-10 mg - 20 mg of baclofen. He is interested in dose adjustment and feels that she may benefit with additional dose -Botulinum toxin therapy: Initial visit -Other/orthosis: No -Denies any concerns with bowel and bladder function Patient goals: -reduce lower extremity spasms -achieved (reduction in MACHO spasm frequency scale to 5 from 6 today, reports resolution of spasms for 10 weeks after Botox) -Reduce discomfort/pain associated with spasms -Improve participation in therapies -Improve positioning in bed, wheelchair -Improve mobility/transfers and ambulation BT therapy effective? Yes - stiffness, spasms/cramps, active function and ease of care Duration of benefit: 10 weeks Side effects: No Spasm scale: 2=Infrequent full spasms occuring less than once per hour (Spasm severity 3) Pain related to the purpose of the visit: No 0 on a scale of 0 to 10 Patient Entered Data PROMIS No data to display Spasticity NRS No data to display Spasm Scale No data to display Global Impression of Change No data to display Nutritional status: appetite , weight , swallowing - stable Driving issues: NA Safety concerns regarding living situations and safety at home: NA At risk for falling: Yes . No falls recently Examination: BP 135/72 (BP Site: Right Arm, BP Position: Sitting, BP Cuff Size: Large Adult) Pulse 75 Temp 37.5 C (99.5 F) (Temporal) General: The patient is a well-nourished, well groomed who appears stated age. HEAD: Normocephalic EYE: -Appearance: Sclera nonicteric, PERRLA ENT: no rhinorrhea, MMM Lung: breathing unlabored in room air Skin: skin turgor is normal. Healed midline incision over anterior abdomen present. GI/: Insulin pump present over left anterior abdomen present Ileal conduit with external collecting bag noted on right side draining clear urine. Extremity: edema noted in both lower extremities. Neuro: The patient was alert and oriented Articulated speech with intact comprehension Strength Right Left Shoulder abduction 4 5 Elbow flexion 5 5 Elbow extension 5 5 Wrist extension 5 5 Hip flexion 2+ 3+ Knee flexion 3+ 3+ Knee extension 3+ 2+ Plantarflexion 2+ 3+ Dorsiflexion 3 3+ Strength: Bilateral FDS-FDP 5/5 Bilateral abductor digiti minimi 5/5 Bilateral EPL 5/5 bilateral FPL 5/5 Right EHL-not tested Left EHL 1+/5. Spasticity Right Left Shoulder 0 0 Elbow flexors 0 0 Elbow extensors 0 0 Wrist flexors 0 0 Wrist extensors 0 0 Finger flexors 0 0 Finger extensors 0 0 Hip adductors 2 2 Knee extensors 0. 0 Knee flexors 1+ 2 Plantarflexors 1 0 Modified Warren Scale 0 - No increase in tone 1 - Slight increase in tone (catch and release at end of ROM) 1+ - Slight increase in tone, manifested by a catch, followed by minimal resistance throughout remainder (less than half of ROM) 2 - Marked increase in tone through most of the ROM, but affected part(s) easily moved 3 - Considerable increase in tone; passive movement difficult 4 - Affected part(s) rigid in flexion or extension Hip flexor spasticity 2 bilaterally Bilateral lower extremity spasms noted: Bilateral hip flexion/adduction, knee flexion. Spasms observed: RUE: no right upper extremity spasms LUE: no left upper extremity spasms RLE: right lower extremity spasms Spasm with right hip adduction LLE: left lower extremity spasms Spasm with left hip flexion, knee flexion Assistance required: wheelchair Gait: Needs 1 person assistance for transfer from wheelchair to exam table UNIVERSAL PROTOCOL / SAFETY CHECKLIST Procedure to be Performed: Chemodenervation with botulinum toxin A Sign In: A Moment of CARE was completed. Personnel directly involved with the procedure wore the appropriate PPE (Personal Protective Equipment). Special equipment: EMG -portable Patient/Surrogate Stated/Verified: PATIENT VERIFIED(optional for EMERGENT procedures): Patient name, Date of , Relevant allergies, and The intended procedure Time Out Communication: Intended patient and procedure match the source documents. Consent documented and matches the intended procedure. No relevant labs, photos, and/or imaging studies were applicable for review. Correct side/site marked and visible. Medications required for procedure verified. No fire risk assessment and interventions applicable. No implant(s) inserted. Sign Out: SIGN OUT (optional for EMERGENT procedures): No specimen collected. No instruments, equipment or retained foreign bodies applicable. Post-procedure follow-up management communicated and Plan of Care Visit completed when applicable. Noel Daniels MD The risks, benefits and alternatives of the procedure were explained. Written Consent Obtained: yes - 04/15/2024 Clinician(s) performing the injections: Noel Daniels; Derick Romero ([facility] fellow); Luciana Balderas (PM&R Resident) The patient was positioned Sitting and Supine on exam table. Brand of toxin injected: Botox. After skin preparation with alcohol, a total dose of 400 units were injected as follows: Muscle Limb/Side Dose Guidance Comments Hip flexor LLE 100 units EMG 3 sites Semimembranosus LLE 50 units EMG 1 sites Biceps femoris LLE 70 units EMG 2 sites Semitendinosis LLE 30 units EMG 1 sites Hip flexor RLE 80 units EMG 2 sites Medial hamstrings RLE 70 units EMG 2 sites Total Dose: 400 0 units discarded. Dilution: 100 units / 1 ml LOT #: [id number] Expiration Date: Month: 4 Year: 27 The injections were uneventful. Minimal bleeding occurred at the injection sites which resolved before discharging patient from clinic. 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 She has paraplegia with severe spasticity and flexor spasms which is limiting her functions and participation in therapies. Previous botulinum toxin injections have helped with spasm and stiffness. Exam notable for increased spasms/spasticity as compared to last visit. Discussed dose increment for hip flexors and kneeflexors with total dose of 400 units. She is appropriate candidate for chemodenervation with botulinum toxin A and agreeable to the updated plan. Changes made today: Total dose 400 units Muscles injected with new dose: (Dose increase) Bilateral hip flexors Lumbar medial hamstrings Left lateral hamstring (G82.22) Chronic incomplete spastic paraplegia (HCC) (primary encounter diagnosis) (M62.838) Spasm of muscle (G04.91) Myelitis ([facility]) (Z74.09, Z78.9) Impaired mobility and activities of daily living MS BT PRE AUTH Plan: Chemodenervation with Botulinum toxin A performed detailed as above. Follow up in 13 weeks for nextset of Botulinum toxin A injections. Continue ROM and stretching exercise at home Resume working with physical and Occupational Therapy as scheduled. Continue timely pressure relief when changing position Continue baclofen 10 mg twice daily. Additional dose of 10 mg twice daily as needed provided Follow-up in 1 week for phenol neurolysis of bilateral obturator nerve. Patient reports doing okay with current manual wheelchair. Discussed evaluation for powered wheelchair. Patient will discuss this further with occupational therapist. Time spent with patient: 45 mins TEACHING PHYSICIAN NOTE OF PERSONAL INVOLVEMENT IN CARE I personally participated in the gordon components and supervised the encounter. I have discussed the case and management of the patient's care with fellow physician and resident physician, and agree with above assessment and plan. Noel Daniels MD Physical Medicine & Rehab [facility] documented in this encounterThe [facility]12-26-2024 NoteHNO ID: [id number] Author: MARLENE CORDERO PA-C Service: ? Author Type: Physician Coordinate Measuring Machine Programmer Type: Progress Notes Filed: 04/10/2024 14:16 Note Text: CC: 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 f/u HPI: Mrs Chikis Tobar is a 58 year old female with 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 Chikis's shunt was previously removed at [facility] on 07/10/23 following surgery for bowel obstruction followed by worsening symptoms.shunt was reimplanted on 10/11/23 with multiple episodes of slit like ventricles and previous hygroma development with shunt set to 7. Her valve is currently set to 8. Since last visit, Chikis feels her BLE spasms have worsened. She continues to follow with physical medicine and neurology, scheduled for botox next week. She denies any changes in her balance, cognition or onset of headaches. Truj[place] in place. Returned home from rehab, doing outpatient PT Focused Exam: Right frontal shunt site examined, [...] XII: Tongue protrusion full and midline Motor: spasticity of BLE Wheel chair dependent Impression: Chikis Tobar is a pleasant 58 year old female with a history of communicating hydrocephalus. 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 Her shunt was re inserted on 10/11/23 with Certas valve. Her shunt is currently set to 8 due to multiple previous episodes of slit like ventricles when shunt was set to 7. Chikis denies any changes to her balance or cognition. Trujillo catheter in place. She denies headaches. On CT brain, ventricles have relaxed, shunt in place without acute abnormality. She will continue to follow with neurology and physical medicine for treatment of BLE spasticity. Follow up in [address] brain. Plan: Shunt information Shunt type: Certas Initial settin [facility]in [facility] History of Present illness Narrative* Marlene Cordero PA-C - 04/10/2024 1:33 PM EST CC: 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 f/u HPI: Mrs Chikis Tobar is a 58 year old female with 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 Chikis's shunt was previously removed at [facility] on 07/10/23 following surgery for bowel obstruction followed by worsening symptoms.shunt was reimplanted on 10/11/23 with multiple episodes of slit like ventricles and previous hygroma development with shunt set to 7. Her valve is currently set to 8. Since last visit, Chikis feels her BLE spasms have worsened. She continues to follow with physical medicine and neurology, scheduled for botox next week. She denies any changes in her balance, cognition or onset of headaches. Trujillo in place. Returned home from rehab, doing outpatient PT Focused Exam: Right frontal shunt site examined, [...] XII: Tongue protrusion full and midline Motor: spasticity of BLE Wheel chair dependent Impression: Chikis Tobar is a pleasant 58 year old female with a history of communicating hydrocephalus. 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 Her shunt was re inserted on 10/11/23 with Certas valve. Her shunt is currently set to 8 dueto multiple previous episodes of slit like ventricles when shunt was set to 7. Chikis denies any changes to her balance or cognition. Trujillo catheter in place. She denies headaches. On CT brain, ventricles have relaxed, shunt in place without acute abnormality. She will continue to follow with neurology and physical medicine for treatment of BLE spasticity. Follow up in [address] brain. Plan: Shunt information Shunt type: Certas Initial settin New settin Marlene Cordero PA-C documented in [facility]The [facility]12[facility]24 History of Present illness Narrative* Michelle Wood RT(R) - 04/10/2024 1:00 PM EST Radiology Service Progress Note PATIENT NAME: Chikis Tobar DATE OF SERVICE: April 10, 2024 TIME: 12:53 PM PATIENT IDENTITY VERIFICATION COMPLETED USING TWO (2) IDENTIFIERS: Name and Date of confirmedby patient verbally. FALL SCREENING: Has the patient had 2 falls in the last year or 1 fall with injury or currently using an Ambulatory Assistive Device (Walker, Cane, Wheelchair, Crutches, etc.)? Yes, Patient High Riskfor Falls What interventions were put in place to prevent falls during this visit? Offered Assistance with Transfers/Clothing PATIENT GENDER DATA: Female. status: : No status: NO. PATIENT RELEVANT IMPLANT DATA REVIEWED: Yes PATIENT PRESENTS WITH AN IMPLANTABLE OR ATTACHED AIRCRAFT DESIGN ENGINEER: No RADIOLOGY DEPARTMENT: CT; Exam(s) Completed: Brain PERIPHERAL IV DATA: Not applicable SIGNED BY: RT Sejal(Randy) April 10, 2024 12:53 PM documented in this encounterThe [facility]12-26-2024 NoteHNO ID: [id number] Author: MICHELLE WOOD RT(R) Service: Radiology Author Type: Rooming House Keeper Type: Progress Notes Filed: 04/10/2024 12:54 Note Text: Radiology Service Progress Note PATIENT NAME: Chikis Tobar DATE OF SERVICE: April 10, 2024 TIME: 12:53 PM PATIENT IDENTITY VERIFICATION COMPLETED USING TWO (2) IDENTIFIERS: Name and Date of confirmed by patient verbally. FALL SCREENING: Has the patient had 2 falls in the last year or 1 fall with injury or currently using an Ambulatory Assistive Device (Walker, Cane, Wheelchair, Crutches, etc.)? Yes, Patient High Risk for Falls What interventions were put in place to prevent falls during this visit? Offered Assistance with Transfers/Clothing PATIENT GENDER DATA: Female. status: : No status: NO. PATIENT RELEVANT IMPLANT DATA REVIEWED: Yes PATIENT PRESENTS WITH AN IMPLANTABLE OR ATTACHED AIRCRAFT DESIGN ENGINEER: No RADIOLOGY DEPARTMENT: CT; Exam(s) Completed: Brain PERIPHERAL IV DATA: Not applicable SIGNED BY: RT Sejal(Randy) April 10, 2024 12:53 [facility]12-26-2024 NoteHNO ID: [id number] Author: JAMIE MCCARTY MD Service: ? Author Type: Physician Type: Progress Notes Filed: 04/19/2024 12:41 Note Text: INFECTIOUS DISEASES OUTPATIENT FOLLOW-UP NOTE SERVICE DATE: April 10, 2024 Last visit:January 10, 2024 Summary of HPI HPI: 58 year old female with medical history of [...] performed and she was transferred to [facility]. She was found to have DKA. A CT head showed hydrocephalus with MRI on May 29 showing multiple enhancement in the anterior sabra, medulla, and in the spine at the level of C7-T3 and L1-S2. Multiple taps were performed and were unsuccessful. A 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 was placed and patient underwent a [...] lobes (8 mm). LFTs 08/16 normal . 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 was adjusted from 4 to 7 Posaconazole level 2.4 on 08/21/22 Developed a facial rash in September 2022, mainly the malar area, a few spots on the forehead. Dx'd with rosacea by PCP and started on metronidazole gel. She was seeing wound care at [facility] for her sacral area ulcer. Rx'd with medical honey gel and silicone bordered foam bandage. Healed over several months At her ID clinic visit 10/18/22 she was doing very well. The rash had improved over malar region with a few papules on forehead. Appeared c/w rosacea, [...] decrease in smal bifrontal convexity subdural hygromas. 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 Has gained wt. Urology felt her urothelial CA was CHRISTINE on surveillance imaging, urine cytology. Continue surveillance imaging q 6 months. Tru[address] remains in place. ID clinic 01/15/23, doing fairly well overall, tolerating posaconazole. Strength improving and ambulatory, using a cane PRN. No 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 issues. Balance has improved but still [...] of antifungals and then reassess with imaging. ID clinic 03/19/23: Seemed to have reached a plateau with her neuro recovery, with stable balance problems and various areas of sensory loss. Neuro exam showed abnormal Romberg (unable to stand feet together with eyes OPEN), balance deficits, some decreased sensation upper back region (around T5) and patchy areas both anterolateral thighs. Ambulatory with a cane, improving wt, and overall motor strength. Had a near fall in prior week without dire (more content not included)...[facility]12-26-2024 History of Present illness Narrative* Jamie Mccarty MD - 04/10/2024 12:45 PM EST Images from the original note were not included. INFECTIOUS DISEASES OUTPATIENT FOLLOW-UP NOTE SERVICE DATE: April 10, 2024 Last visit:January 10, 2024 Summary of HPI HPI: 58 year old female with medical history of [...] performed and she was transferred to [facility]. She was found to have DKA. A CT head showed hydrocephalus with MRI on May 29 showing multiple enhancement in the anterior sabra, medulla, and in the spine at the level of C7-T3 and L1-S2. Multiple taps were performed and were unsuccessful. A 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 was placed and patient underwent a [...] lobes (8 mm). LFTs 08/16 normal . 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 was adjusted from 4 to 7 Posaconazole level 2.4 on 08/21/22 Developed a facial rash in September 2022, mainly the malar area, a few spots on the forehead. 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 She was seeing wound care at [facility] for her sacral area ulcer. Rx'd with [...] cytology. Continue surveillance imaging q 6 months. Tru[address] remains in place. ID clinic 01/15/23, doing fairly well overall, tolerating posaconazole. Strength improving and ambulatory, using a cane PRN. No 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 issues. Balance has improved but still needs to work on it. Area of persistent numbness in the upper thoracic region which has not changed much, along with some areas of numbness on the lateral thighs, which has been present all along. Facial rash better, being treated as rosacea by PCP. Glucose well controlled. Plan 1 year of antifungals and then reassess withimaging. ID clinic 03/19/23: Seemed to have reached a plateau with her neuro recovery, with stable balance problems and various areas of sensory loss. Neuro exam showed abnormal Romberg (unable to stand feet together with eyes OPEN), balance deficits, some decreased sensation upper back region (around T5) and patchy areas both anterolateral thighs. Ambulatory with a cane, improving wt, and overall motor strength. Had a near fall in prior week without direct head trauma, probably due in part to chronic balance problems. Also had bilateral shoulder pains and receiving PT. Last MRI brain 07/07/22 (postop) showed FLAIR hyperintensity of trigeminal nerves, facial, and vestibulocochlear, and glossopharyngeal and vagal nerves (no significant contrast enhancement of cranial nerves though). MRI of cord 07/07/22 showed extensive leptomeningeal enhancement throughout the entire spinal canal and extending intothe brainstem and basilar cisterns. Plan for MRI of brain and spine, neurosurgical FU to evaluate shunt settings after MRI. Offered Orthopedics consult for bilateral shoulder pain, presumed rotator cuff ID clinic 05/10/23: MRI brain and spine yesterday with significant improvement in the extensive leptomeningeal enhancement (see below) from the brain stem to the cauda equina. The FLAIR hyperintensityinvolving multiple cranial nerves has resolved. Still some areas of loculation in the prepontine area and in ventral thoracic area (images below), but diffuse lepto and some pachymeningeal enhancement throughout is better. There is a persistent intramedullary T2/STIR hyperintense signal in the thoracic cord T2-T3 to T7-T8. numbness around both the knee areas in particular but also the thighs. This is not painful and she can still feel in the thigh regions as well as around both knees but it is d efinitely less than other areas. Has the sensation that the knees feel puffy but says they are not really puffy There is also an area of partial numbness on the upper back around the area of the incision that is similar; she can feel everything when touched there but the sensation is less than other areas of the back. This matches up with the MRI of the T spine. Admitted to [facility] 06/24-07/13/2023 Presented to [facility] 06/24 with c/f possible SBO. 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 NSGY maintained the externalized shunt at the clavicle via an EVD and the valve was adjusted from 7 to 8 to see if the patient would continue to remain shunt independent for a prolonged course. Following seven days of a clamped EVD, patient was deemed shunt independent and the VPSwas removed by Dr. Figueroa on 07/10/23. -Urology, Dr. Chambers, placed and managed a TOD drain that was removed prior to discharge. Bilateral ureteral stents to be removed 07/26/23 08/30/23 neurosurgery visit: Over the past 2 weeks Chikis has seen worsening in her ambulation. She continues to use a rolator but feels much more unbalanced and is starting to shuffle. No additional neurologic complaints 09/04/23 telehealth visit: she has fallen a few times in this time period. She was concerned that she was unable to get herself up off the floor on her own. 09/20/23 neurology visit -At the end of July, she developed weakness in her BLE. When she goes to turn to stand up, her legs will involuntarily flex and the hip and knee and dorsiflex at the foot. This also happens when sheis laying flat and therapists will have to help her straighten her legs. She has no control over this. It does hurt when this happens in her knee area. This has slowly been getting worse since July. The legs are also weak, R>L, and the right leg will drag when she walks. -On exam, patient has spasticity and triple flexion in BLE in addition to weakness and hyperreflexia. Findings are concerning for worsening hydrocephalus, especially given that her CT head in July showed larger ventricles compared to prior MRI -Imaging ordered but not performed yet presents today 10/04/23 to ID clinic for follow-up 10/04/23: ID clinic-- ongoing spasms in LE with tensing x 1+ month. Worsening LE weakness and spasms, no new numbness. Spasms in legs waking her up from sleep. Frequency increasing from every 2-3 days, to daily every hour or so. Worsening vision also, in July vision OD 20/20, and now 20/40 OD, and weaker on the left. Exam with long tract signs with upgoing plantars bilaterally, increased tone in LE; stable sensory deficits. We felt her symptoms were atypical from hydrocephalus, especially givenlack of any headache. She did report that the painful spasms in both legs started after the 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 was removed at [facility], so it seemed somehow related. The posaconazole level was therapeutic and thelast MRI of the brain and spinal cord showed significant improvement in the fungal infection. It seemed unlikely that her leg spasms were due to uncontrolled fungal infection. She did have some loosestools and we were considering electrolyte abnormalities as a cause of leg cramping. Plan was to continue posaconazole for another 6 months, repeat MRI of the cervical and thoracic spine in October 2023to help decide length of therapy of posaconazole. 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 She suffered a fall after an episode of leg spasms. Admitted to local hospital and dx'd with comminuted fracture of Left distal tibial bone. From there, she was transferred to [facility] She went to [place] 10/08/23 intramedullary nail placement to the Left tibia. CT head 10/08 with evidence of interval increased dilation of the ventricular systems suggestive communicating hydrocephalus with mildtransependymal edema Transferred to [facility]. Seen by ID Dr Dominic Pablo for ID clearance for VPS. Dr Reagan saeed had no evidence of ongoing fungal infection. S/P Ventriculo-atrial shunt (right occipital) 10/15/2023 (Dr Oconnor), Certas valve 6. CSF sent from OR 10/15/23 showed 0 TNC, RBC 14, pro 5, glucose 80. Cryptococcal antigen, fungal cultures negative. MRI C_T spine 10/18/23 showed unchanged loculated arachnoid collection along ventral lower cervical and upper thoracic spine, with cord displacement, no change from 05/09/23. Persistent abnormal intrameduallary cord signal immediately above and below displaced cord, down to T7, minimally improved. Stable LME and pachymeningeal intradural enhancement throughout the C-T and upper lumbar spine, no change. Postop changes T5-6 decompression. D/C'd to [facility] She was continued on posaconazole 300 mg/d. Seen by ID Dr Domingo on 10/26/23. Tolerating posaconazole, stable LFTs, continue same and FU with ID at [facility] Patient contacted me on MyChart on 10/31/23 that she was having ongoing leg spasms. She was on some new medications but were not working. Very difficult to walk with the spasms. She was told that muscle spasms can happen after extended use of posaconazole. On 11/01 I let her know that it was reasonable to stop the posaconazole for 2 weeks and see if her symptoms would improve (but was continued) Went to SNF 11/03/23, [facility]. Per [facility] notes she was stable, participating in PT/OT, eating and drinking appropriately. No bowel or bladder issues. afebrile, non-toxic appearing. Pt.c/o BLE muscle cramps, Mag 1.9, muscle relaxer changed to methocarbamol 750mg po QID. Started on gabapentin 11/04 ID clinic 11/16/23: still on the posaconazole (ie did not stop the medication). No improvement with ongoing LE painful spasms where both legs would flex involuntarily at the knees in a spasm. On Robaxin, tried gabapentin (did not help much). At night the spasms were the worst. Would start in her footand toes, then the spasm would go up her leg, and legs ended up flexed at the knee so that her feetwere back behind her. Thighs got so tight that they couldn't pry them apart. Better during the day but still would get some severe daytime episodes, such as one time during PT she was at the parallelbar and the legs curled up in a spasm, the feet went beneath her and she could not stand up. A few days beforehand, she had been able to use her upper body to get some weight onto her spasming feet and straighten them up. 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 The next day, therapy came and spasms started again. Some have theorized that the spasms were controlled by the anesthesia in the OR the day before. Then she went to [facility], and was able to take a few steps with the parallel bars but nothing like at [facility] on POD [facility]. Plan was to try a ketty system to pull her along when walking, but never did it. No SHANNON. Shunt 6--> 7. CTH done at rehab after the MRI on 10/18/23; told there was too much fluid being drained and adjusted to 7 (which was the setting of the previous shunt before it was removed at [facility]) Still had decreased sensation in both legs. Can still feel things in feet and legs but felt weird. Able to feel the ground below her. She was wearing a boot on the LLE. Within two days of the surgery on the leg, developed a deep bruise on the heel. Had necrotic tissue on heel and areas on top of foot where skin had rubbed off and raw. Said the boot was never inflated, and caused the skin breakdown. Seen by wound care 11/14 and saidmuch better, skin improving, heel necrosis was more scabs. D/C'd the posaconazole on 11/16/23, with plan to monitor the leg spasms and FU 2 weeks. Had consult with Neurology scheduled also. 11/20/23: plan was medrol dose pack for BLE spasms but pt declined, wanted to wait another week off posaconazole first. continued on methocarbamol 11/28: Ortho clinic; pt had been wt bearing but no walking at all with PT. Incision well healed (left tibia IMN). X rays showed healing distal tib-fib fracture compared to previous 10/25/23. Pressure wound noted on heel; removed boot due to pressure wound, use supportive shoe with WBAT. NSGY clinic: CTH 11/28 with small bilateral subdural hygromas, which may be due to over shunting. Adjusted Certas 7-->8, plan FU [address] (tried to add her on to ID clinic 11/28 but did not see message until later) SNF: started medrol dose pack 11/28 x 1 wk --> no improvement Consult with Dr Daniels in [facility] 12/04/23: on Robaxin without benefit, gabapentin; completing medrol dose pack. Able to walk with PT in the parallel bar but someone needs to stabilize her knees from going into flexion. She transfers using a slide board. Exam with motor weakness especially hip flexors MRC 1-2/5, and knee extension. Spasticity both hip adductors (Warren 2), knee flexors. Spasms seen RLE and LLE. Impaired light touch at T10, absent PP T10; impaired LT in LE bilaterally, absent PP in LE. 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 Approximate neurological level of injury T9. Recommended continuing PT/OT and wound care, contacting ID about restarting posaconazole, D/C robaxin since not helpful, D/C medrol, increase gabapentin 600 mg qHS, trial of baclofen instead of tizanidine due to low BP in office 103/60 . Trial of botox later No improvement in BLE muscle spasms. Posaconazole restarted 12/08/2312/12: continued pain with spasms. Prednisone taper 60, 50, 40, 30, 20, 10, 5 then done Some improvement in pain ID clinic 12/21/23-- was at [facility]. Saw Neurology same day, Dr Butler. She c/o severe leg edema, felt secondary to gabapentin (started 11/05/23). Exam with severely diminished lower extremity strength, normal tone throughout, normal reflexes. Recommended stopping gabapentin, proceed with Botox injections. Confirmed she had been back on posaconazole since 12/07. Still very limited gains in PT/OT. Legs remained weak, R worse than L. R leg drags, not walking. Spasms still mainly at night, but also at times during the day during therapy-- brushing across her skin can trigger the BLE spasms. On prednisone taper; some improvement in the pain component of spasms. Problems with straightening left leg. Heel wound better; continues to see Wound Clinic (mobile); wound eschar being treated with betadine, ABD, Kerlix. PLAN-- continue posaconazole, although isavuconazole an option since some leptomeningeal enhancement still, labs, proceed with Botox ID clinic 01/10/24-- still at [facility], on prednisone taper and baclofen. Pain had improved some and participating more in PT/OT, Legs getting a little stronger. Walking with parallel bars, and standing is stable.. Improved in ability to go from sitting to standing. More stable with standing. Spasms better in R leg, but not in the LLE-- still with severe spasms at time. Was on Lasix 20 mg po daily x 7 days for BLE edema starting 01/07 despite Marcie hose, and edema better. CT head that day withincreased caliber lateral and 3rd ventricle from 11/29/2023, otherwise unchanged. NSGY felt the previous slit like ventricles had relaxed and hygroma resolved.Certas valve shunt was adjusted from 8 to7. Plan was for Botox the next day for spasms, continue off the gabapentin and monitor LE edema, and continue posaconazole-- ? isavuconazole a consideration depending on clinical course and next MRIs, given some degree of persistent leptomeningeal enhancement. D/C d home from [facility]. Some delay in getting the dressings changed over Left heel which were being changed daily at [facility]. When [facility] nurse changed dressing after 5 days, there was some drainage. She sent me a photo of the left heel 02/19/24 on [employer]: Advised her to see Equity Sales Assistant-- she made appt to see Podiatry in [place]. Underwent office debridement and she sent me FU photo 03/17/24: Currently (04/10/24) - was discharged home from [facility] 02/14. Getting outpatient PT and OT, says more hours in PT now than in inpatient rehab - feels walking is worse though; more spastic since last shunt adjustment. Was walking on parallel bars in 12/2023 and able to stand. Now, hardly able to walk on the parallel bars at therapy, and cannot stand. - spasticity is very bad left leg worse than right. Hard to sleep at night because when she lays down the spasms kick in. Feels like she has cement in the knees - felt the Botox she received 3 months ago did help. Lasted only 2.5 weeks though. She had asked for 1/2 dose of Botox because was concerned about side effects. Will be getting Botox in a few days, and wants full dose - has had bilateral leg edema, that has been significant despite wearing Marcie hose on RLE and being off the gabapentin. Does not wear compression on LLE, too difficult and has left heel ulcer.. Edema does not improve with leg elevation. Diagnosed with lymphedema and will be getting lymphedema treatments at her outpatient therapy in new year - she does have feeling in both LE. Goes to local wound clinic weekly and when they debride the left heel wound she definitely feels pain. She is happy she can feel it. - recently told by insurance that she needs to have paperwork done for the Noxafil for Apr 2024, even though this is only at 8 months from the last script and in the past had been covered for a year.She does have about 1-2 months supply left, through May 2024 - notes that one time at [facility] the staff had withheld the noxafil because they were waiting forthe level to be resulted. Pt argued with them that she should not have the med held; I called and spoke with her nurse at the time who had indeed been holding the drug pending the level. Had her restart the Noxafil right away-- that was the only time she missed doses (was off it x 3 days) - no SHANNON, vision problems. 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 Dr Ramos is planning to repeat in one month. K and L in serum normal MEDICATIONS: Current Outpatient Medications on File Prior to Visit Medication Sig cyanocobalamin (VITAMIN B-12) 1,000 mcg tab Take 1,000 mcg by mouth. glucagon 3 mg/actuation nasal spray (BAQSIMI) insulin lispro 100 unit/mL injection Inject 300 Units subcutaneously. Not currently on-- using insulin pump ondansetron orally disintegrating (ZOFRAN ODT) 4 mg disintegrating tablet Take 4 mg by mouth every 6 hours as needed. DULCOLAX, BISACODYL, RECTAL by RECTAL route once daily as needed. lisinopril (ZESTRIL) 40 mg tablet Take 40 mg by mouth once daily. acetaminophen (TYLENOL) 650 mg suppository 650 mg by RECTAL route every 4 hours as needed for pain or fever (specify temp.). dextrose 40 % gel Take 15 g by mouth as needed. insulin aspart U-100 (NOVOLOG) 100 unit/mL Use via insulin pump Max daily dose 100 units, DX: E10.65 acetaminophen (TYLENOL) 325 mg tablet 2 tablets by ORAL/FEEDING TUBE route every 6 hours as needed for pain. aspirin, enteric coated (ADULT LOW DOSE ASPIRIN) 81 mg EC tablet Start ASA 81 mg BID on 10/24 Patient should start on October 25, 2023. metoprolol succinate ER (TOPROL XL) 100 mg Take 1 tablet by mouth every 12 hours at 6 am and [address] (NOXAFIL) 100 mg tablet Take 3 tablets by mouth once daily. senna-docusate (SENNA-S) 8.6-50 mg per tablet 1 tablet by ORAL/FEEDING TUBE route two times a day. methocarbamol (ROBAXIN) 500 mg tablet 1 tablet by ORAL/FEEDING TUBE route four times a day as needed. [DISCONTINUED] lactobacillus rhamnosus (CULTURELLE) 10 billion cell capsule Take 1 capsule by mouthonce daily. PHYSICAL EXAM BP 120/61 (BP Site: Right Arm) Pulse 97 Temp 37.1 C (98.8 F) (Temporal) Resp 18 SpO2 96% SKIN: no rosacea H: right occipital 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 palpable along its track and nontender. EYES: PERRL EOMI no scleral icterus, no conjunctivitis ENT: no oral lesions NECK: no meningismus ABDOMINAL: soft, non-distended, non-tender. Ileal conduit stoma R side, pink Insulin pump on Left. MUSCULOSKELETAL: 2+ RLE edema. Wearing compression stocking on R leg (not left, due to the heel ulcer). Leg examined; does have indurated edema, c/w lymphedema 3-4+LLE edema. Left leg flexed at knee about 100 degrees and difficult to extend the knee further. NEUROLOGICAL: alert, oriented, speech appropriate CRANIAL NERVES: Pupils: OD Right: 3 mm Reactive OS Left: 3 mm Reactive II Visual taylor: not tested III, IV, EOM full V Facial sensation normal to light touch VII Normal strength VIII Normal bilaterally to finger rub IX, X Normal, midline palatal rise XI Symmetric shrug, and head rotation XII Tongue midline, mobile Reflexes: RIGHT LEFT Biceps 2+ 2+ Triceps 2+ 2+ Knee 3+ 3+ Muscle tone: increased in LE No fasciculations or tremors noted. LABORATORIES Latest Ref Rng 03/18/2024 Protein, Total 6.3 - 8.0 g/dL 6.7 Albumin 3.9 - 4.9 g/dL 3.9 Calcium 8.5 - 10.2 mg/dL 9.0 Bilirubin, Total 0.2 - 1.3 mg/dL 0.5 Alkaline Phosphatase 34 - 123 U/L 147 (H) Alkaline Phosphatase 34 - 123 U/L 159 (H) AST 13 - 35 U/L 18 ALT 7 - 38 U/L 15 Glucose 74 - 99 mg/dL 203 (H) BUN 7 - 21 mg/dL 10 Creatinine 0.58 - 0.96 mg/dL 0.62 Sodium 136 - 144 mmol/L 141 Potassium 3.7 - 5.1 mmol/L 3.6 (L) Chloride 98 - 107 mmol/L 100 CO2 22 - 30 mmol/L 31 (H) Anion Gap 8 - 15 mmol/L 10 eGFR >=60 mL/min/1.73m 104 Cholesterol, Total <200 mg/dL 136 Triglyceride <150 mg/dL 87 HDL Cholesterol >39 mg/dL 62 Non HDL Cholesterol <130 mg/dL 74 Fasting Time hrs 13 VLDL Cholesterol <30 mg/dL 17 TC:HDL Ratio <5.10 2.19 LDL Cholesterol <100 mg/dL 57 LDL:HDL Ratio <2.54 0.92 Alk Phos Bone % 10.7 - 68.3 % 22.8 Bone Fraction 12.9 - 52.6 U/L 36.3 Alk Phos Liver % 26.0 - 86.2 % 77.2 Liver Fraction 16.0 - 69.3 U/L 122.7 (H) Alk Phos Intestine % 0.0 - 24.2 % 0.0 Intestine Fraction 0.0 - 16.3 U/L 0.0 Result (PA) No M protein is identified. A poorly defined region of restricted mobility is presentthat may represent an M protein. ! Interpretation (PA) Poorly defined region of restricted mobility in IgA and kappa lanes. Pattern is less well defined or fainter than typically seen in monoclonal gammopathy. This could represent either an atypical presentation of polycononal immunoglobulins or the presence of a low level IgA kappa monoclonal gammopathy. If clinically indicated, serum monoclonal protein analysis and serum free light chain measurements are recommended to evaluate further for monoclonal gammopathy. Clinical correlation is necessary. Staff Review ([facility]) Reviewed by Qian Hogan M.D. IgG 700 - 1,600 mg/dL 745 IgA 70 - 400 mg/dL 177 IgM 40 - 230 mg/dL 101 [place] Free, Serum 3.3 - 19.4 mg/L 13.5 Lambda Free, Serum 5.7 - 26.3 mg/L 10.4 K/L Ratio, Serum 0.26 - 1.65 1.30 MPA Result No M protein is identified. No M protein is identified. Staff Review ([facility]) Reviewed by Qian Hogan M.D. Posaconazole, Serum 0.7 - 3.9 ug/mL 2.5 TSH 0.270 - 4.200 mIU/L 1.110 Vitamin B12 232 - 1,245 pg/mL 555 Methylmalonic Acid <=0.40 umol/L 0.20 [facility] Reference Range & Units 06/28/22 14:58 07/02/22 12:42 10/15/23 10:59 CSF Tube Nbr Sterile Container Sterile Container Sterile Container Color, CSF Colorless Colorless Colorless Colorless Supernatant Color, CSF Colorless Not Indicated Not Indicated Not Indicated Clarity, CSF Clear Clear Clear Clear Supernatant Clarity, CSF Clear Not Indicated Not Indicated Not Indicated RBC, CSF 0 - 5 cells/uL 21 (H) 24 (H) 14 (H) Total Nucleated Cells, CSF 0 - 5 cells/uL 3 1 0 DIF TTL, CSF cells counted 100 100 7 Neut%, CSF 0 - 3 % 14 (H) 14 (H) Lymph%, CSF 50 - 90 % 98 (H) 80 71 Tama%, CSF 10 - 50 % 2 (L) 6 (L) Macro%, CSF <1 % 14 (H) Protein, CSF 15 - 45 mg/dL 36 5 (L) Glucose, CSF 40 - 70 mg/dL 106 (H) 58 80 (H) MICROBIOLOGY: Urine 02/06: mixed microbiota COVID/flu/RSV 02/06 neg CSF 10/15/23: Gram stain negative, routine culture negative Fungal culture negative, crypto antigen negative Nasal staph 10/10 neg 07/19/22 COVID PCR neg 07/08/22 CSF cryptococcal antigen negative, fungal culture negative 07/02 CSF culture 07/02 NG [place] fungal PCR PCR from biopsy tissue both negative ([facility]) 06/28 CSF (labelled lumbar puncture but is from EVD): MNGS negative 06/27 CSF (labelled lumbar puncture but is from EVD): No growth, Crypto antigen negative 06/26 OR cultures Dural/subdural itradural thoracic lesion Tissue: gram stain negative. NGTD Wound culture: gram stain negative. NGTD AFB smear no organsims. Fungal: smear: no fungus seen [place] bacterial, fungal and AFB PCRs: negative (entire [...] on the AFB or gram stain sections. RADIOLOGY CT head 01/10/24 Increased caliber of the lateral and third ventricles from 11/29/2023 with otherwise unchanged positioning of the ventriculostomy catheter. MRI C-T spine 10/18/23: Unchanged loculated arachnoid collection along the ventral lower cervical and upper thoracic spine with posterior cervicothoracic cord displacement, and not significantly changed from 05/09/2023. Persistent abnormal intramedullary cord signal abnormality immediately above and more prominently below the dorsally displaced cord extending to the mid T7 level, minimally improved from 05/09/2023, as detailed. Grossly stable diffuse abnormal leptomeningeal and scattered nodular pachymeningeal intradural enhancement throughout the cervical, thoracic, and upper lumbar spine, not significantly changed in appearance from 05/09/2023 although improved when compared with more remote studies. No new or progressive pathologic enhancement. Stable postoperative changes of T5-T6 dorsal decompression. Multilevel cervicothoracic spondylosis without high-grade spinal canal or neuroforaminal stenosis. Cervical Anatomic Variant: None. Assume 7 cervical vertebrae with counting from the craniocervical junction. Anatomic Thoracic/Lumbar Variant: None. L4-5 is considered the level of the iliac crest and assume there are 5 lumbar-type vertebrae. MRI brain, C-T-L spine 05/09/23: Interval decreased size of the peripherally enhancing collection in the interpeduncular, prepontine and cerebellopontine angle cisterns compared to the prior MRI. 05/09/23: T1 fl3d ax 18, 64 MRI 07/07/22, T1 fl3d, 41, 116 Near complete resolution of leptomeningeal enhancement involving the prepontine cistern and cerebellopontine angle cisterns, along the surface of the sabra and medulla compared to prior exam. No new or progressive pathologic enhancement. 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 Ventricular interstitial edema compared to the prior exam. Right frontal approach ventriculostomy shunt catheter is present. Interval improvement in diffuse abnormal leptomeningeal and pachymeningeal intradural enhancement throughout the cervical, thoracic and lumbar spine compared to the prior MRI 07/07/2022 with residual decreased patchy enhancement in the thoracic and lumbar spine. Patchy residual enhancement along the cauda equina nerve roots and ventral thecal sac in the lumbar spine, improved. Persistent abnormal intramedullary T2/STIR hyperintense signal in the thoracic cord with slight increased caudal extension from T2-T3 to T7-T8 compared to prior exam. Persistent deformity and expansion of the cord at these levels. Unchanged loculated arachnoid collection along the ventral lower cervical and upper thoracic spine with displacement of the cervical thoracic cord compared to prior exam. 05/09/23 SAG T1 ASIF, 7, 8 T2 tirm sag bone 8,8 07/07/22 SAG T1 TSSE 43, 8 Postoperative findings of dorsal decompression at T5-T6 with involution of the previously seen postoperative collection in the laminectomy defect and resolution of mass effect. Unchanged chronic compression fracture of T5 without bony retropulsion or canal stenosis. No significant canal or foraminal stenoses in the cervical, thoracic or lumbar spine. Cervical Anatomic Variant: None. Assume 7 cervical vertebrae with counting from the craniocervical junction. Anatomic Thoracic/Lumbar Variant: None. L4-5 is considered the level of the iliac crest and assume there are 5 lumbar-type vertebrae. ASSESSMENT: 58 year old woman with history of: - [...] in DKA - 05/29/22 MRI brain from [facility] with leptomeningeal enhancement, communicating hydrocephalus - 06/07/22 MRI spine with diffuse LMD throughout spinal cord and cauda equina with loculated CSF in anterior thecal sac at C7-T3 with posterior displacement of cord and cord compression. T4-9 intramedullary hyperintensity suggesting cord edema due to compression superiorly - Course complicated by unsuccessful LP attempts at [facility] then transferred to [facility] - s/p cisternal tap [...] with fungal hyphae confirmed on multiple sections. [place] PCR and cultures all negative, including the tissue block in its entirety sent for universal fungal PCR and negative - CSF 06/28/22 negative on Next Gen sequencing - posaconazole started 06/29/22 - s/p 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 on 07/10.and improving MS since then. - small subdural hygromas over frontal convexities on CT 08/16/22, shunt settings adjusted - facial rash in September 2022, mainly the malar area, a few spots on the forehead. Dx'd with rosacea by PCP and started on metronidazole gel, improved - sacral area ulcer, saw wound care at [facility]. Rx'd with medical honey gel and silicone [...] patchy sensory loss in thighs - near falls - MRI 05/10/23 with significant improvement in the extensive leptomeningeal enhancement from the brain stem to the cauda equina. The FLAIR hyperintensity involving multiple cranial nerves had resolved. Still some areas of loculation in the prepontine area and in ventral thoracic area, but diffuse lepto and some pachymeningeal enhancement throughout was better. 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 NSGY maintained the externalized shuntat the clavicle via an EVD and was the valve was adjusted from 7 to 8 to see if the patient would continue to remain shunt independent for a prolonged course. Following seven days of a clamped EVD, patient was deemed shunt independent and the VPS was removed by Dr. Figueroa on 07/09. Had ureteral stents, later removed - new onset bilateral LE cramps and spasms, starting 1 week postop removal of VPS. Cramps starting from toes and feet and ascending to thighs and groin, uncontrolled dorsiflexion in feet, knee and hip flexion. Every 2-3 days initially then multiple times daily - CT head 07/2023 with increased ventricles Neurology eval 09/20/23: spasticity and triple flexion in BLE in addition to weakness and hyperreflexia. Findings are concerning for worsening hydrocephalus especially with CTH showing increased ventricles - suffered a fall 09/2023 after an episode of leg spasms. Admitted to local hospital and dx'd with comminuted fracture of Left distal tibial bone. From there, she was transferred to [facility] She underwent intramedullary nail placement to the Left tibia on 10/08/2023. She also had a CT BRAIN WO CON on 10/08 with evidence of interval increased dilation of the ventricular systems suggestive communicating hydrocephalus with mild transependymal edema Transferred to [facility]. Seen by ID Dr Dominic Pablo for ID clearance for VPS. Dr Reagan saeed had no evidence of ongoing fungal infection. S/P [facility] shunt (right occipital) 10/15/2023 (Dr Oconnor),Certas valve 6. CSF sent from OR 10/15/23 showed 0 TNC, RBC 14, pro 5, glucose 80. Cryptococcal antigen, fungal cultures negative to date. MRI C-T spine 10/18/23 showed unchanged loculated arachnoid collection along ventral lower cervical and upper thoracic spine, with cord displacement, no change from 05/09/23. Persistent abnormal intrameduallary cord signal immediately above and below displaced cord, down to T7, minimally improved. Stable LME and pachymeningeal intradural enhancement throughout the C-T and upper lumbar spine, no change. Postop changes T5-6 decompression. D/C'd to [facility] She was continued on posaconazole 300 mg/d. Seen by ID Dr Domingo on 10/26/23. Tolerating posaconazole, stable LFTs, continue same and FU with ID at [facility]. Ongoing leg spasms, gabapentin and Robaxin not working. Labs negative including Mg, Phos, Ca Has had ongoing bilateral leg spasms since 07/2023, starting 1 week postop removal of VPS. Not better after placement of VA shunt 10/15/23. She had benign CSF with no pleocytosis 10/15/23. Fungal CSF culture again negative, with 0 TNCs in CSF MRI 10/18/23 showed no change in the 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 There is still persistent abnormal intrameduallary cord signal immediately above and below displaced cord, down to T7 but this is chronic for many months and unchanged. Similarly she has leptomeningeal enhancement and some intradural enhancement throughout the C-T and upper lumbar spine, but this also is now chronic and unchanged on recent MRI. 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 The reason why she became much worse in 07/2023 a few days after the 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 was removed in 06/2023 remains unclear-- she did not have the daily, disabling LE spasms prior to this, and her MRIs have been unchanged. She had some improvement into 12/2023 with more LE strength, walking with parallel bars and standingwas stable. Had more improvement after Botox in 12/2023. Botox improvement lasted only 2.5 weeks She feels she has worsened in past few months, compared with 12/2023, more mobile then, standing andwalking with parallel bars. She is concerned about worsening after last shunt adjustment; has been in contact with NSGY who felt the spasms and gait unrelated to shunt and has been seen by Dr Ramos in Neurology. Pt has CT brain next and FU appt with NSGY today. Will also be getting Botox again this week Tolerating the posaconazole and will continue this; still had diffuse spinal LME on last MRI 10/2023; not much different from MRI 04/2023 but definitely better c/w early MRI scans PLAN: - labs CBC, CMP, CRP - continue posaconazole, check trough today - Additional [place]AUDH[place] of ? M protein spike per Dr Ramos in Neurology - CT head today, NSGY FU - Plan for Botox next wk - isavuconazole is an option also (given some degree of persistent - FU with me in 2 months Jamie Mccarty MD SERVICE DATE: April 10, 2024 I spent a total of 50 minutes on the date of the service which included preparing to see the patient, review of multiple MRI scans, [id number] patient care, completing clinical documentation, obtaining and/or reviewing separately obtained history, performing a medically appropriate examination, counseling and educating the patient/family/caregiver, ordering medications, tests, or procedures, independently interpreting results (not separately reported), communicating results to the patient/family/caregiver, and care coordination (not separately reported) [facility]The [facility] Telephone encounter Note * Telephone Encounter - Sheree Montez RN - 04/04/2024 4:53 PM EST Seen 01/11/24 for last injections [employer] is approved till 04/15/24 SPECIALTY CARE COORDINATION QUICK NOTE Called patient Patient identified by name and date of : Yes Agreed on 04/15 appointment at 1145am with Dr Daniels; slot put on hold, page sent to add on she verbalized understanding and agrees with plan No further concerns [facility] Work Phone: [phone] Miscellaneous Notes* Telephone Encounter - Sheree Montez RN - 04/04/2024 4:53 PM EST Seen 01/11/24 for last injections [employer] is approved till 04/15/24 SPECIALTY CARE COORDINATION QUICK NOTE Called patient Patient identified by name and date of : Yes Agreed on 04/15 appointment at 1145am with Dr Daniels; slot put on hold, page sent to add on she verbalized understanding and agrees with plan No further concerns * Telephone Encounter - Leonarda Rae - 04/04/2024 4:13 PM EST Patient last visit [facility] on 02/11/24; Last [facility] visit on 01/11/24. Ms. Tobar was supposed to be called to schedule her 3 month Botox injection from 01/11/24. Therefore, she never received a call to schedule and she is due for the injection. Please can you give ramya return call? I do not know if she has been approved for next Botox injection. Is it okay to schedule her? Pleaseadvise. documented in [facility]The [facility] Telephone encounter Note * Telephone Encounter - Leonarda Rae - 04/04/2024 4:13 PM EST Patient last visit [facility] on 02/11/24; Last f visit on 01/11/24. Ms. Tobar was supposed to be called to schedule her 3 month Botox injection from 01/11/24. Therefore, she never received a call to schedule and she is due for the injection. Please can you give ramya return call? I do not know if she has been approved for next Botox injection. Is it okay to schedule her? Pleaseadvise. [facility]12-06-2024 Instructions* Patient Instructions* Reggie Butler MD - 03/21/2024 11:27 AM EST It was a pleasure to see you today. Here is a reminder of the plan we made: 03/21/2024 Visit: Consider retrial of gabapentin Continue aggressive PT and OT Continue Botox injections [facility] Follow up in 4 months virtually documented in [facility] encounterThe [facility]12-[facility]24 NoteHNO ID: [id number] Author: REGGIE BUTLER MD Service: ? Author Type: Physician Type: Progress Notes Filed: 03/21/2024 13:29 Note Text: [facility] - FOLLOW UP EVALUATION Kalli Simons MD [address] [place] [phone] Dear Kalli Simons MD: I had the pleasure of seeing Ms. Tobar for follow-up today. As you know she is a 58 year old right-handed female with a history of hydrocephalus since May 2022 . Subjective HISTORY OF PRESENT ILLNESS: During her previous visit the following plan was made: Previous plan-12/21/2023 Visit: Continue to work with Marlene for shunt adjustments, but this is likely optimized at the time Please try stopping gabapentin as this can sometimes cause leg swelling if this makes spasms worse you can resume the medication for now. In this case we can hold it after you've got the Botox Please proceed to get Botox injections Continue PT Follow up with Dr. Rosado or myself in 3 months [place] immediate relief of muscle spasms that wore off after 2.5 weeks. However she does notice that muscle spasms have been worse recently. Questionnaires: In addition, the following activities of daily living that may be affected by tremors were evaluated: Speaking: Not affected Feeding: Not affected Bringing Liquids to Mouth: Not affected Hygiene: Affected (mild) Dressing: Affected (marked) Writing: Not affected Working: Affected (severe) Number of falls in the Last Month: 1 Mood/Behavior Depression: PHQ-9 Score: 2 usually representing no significant (0-4) depression. Anxiety: NATALIIA-7 Total Score: 2 usually representing no significant (0-4) anxiety. Finally, the following table shows the patient's overall global physical and mental health using the PROMIS scale: PROMIS-10 Flowsheet Row Office Visit from 03/21/2024 in [facility] Visit from 11/29/2023 in [facility] Global Physical Health T Score 39.8 34.9 Global Mental Health T Score 50.8 45.8 0-10 Standard Pain Scale 4 3 *PROMIS-10 scoring scale: mean = 50, over 50 is above average, under 50 is below average ALLERGIES Allergen Reactions Demeral [Meperidine] GI Upset Nausea, pt states room spins Flexeril [Cyclobenz* Hives Orphenadrine Other: See Comments, Hives, Rash Versed [Midazolam] Mental Status Change Current Outpatient Medications Medication Sig bumetanide (BUMEX) 1 mg tablet Take 1 tablet by mouth every 12 hours. oxyCODONE ir (OXYIR) 5 mg capsule Take 5 mg by mouth every 4 hours as needed for pain. baclofen 5 mg tablet Take 10 mg by mouth. 1 tablet in morning, 1 tablet in the afternoon, 2 tablets at night. 1 tablet at bedtime PRN cyanocobalamin (VITAMIN B-12) 1,000 mcg tab Take 1,000 mcg by mouth. glucagon 3 mg/actuation nasal spray (BAQSIMI) ondansetron orally disintegrating (ZOFRAN ODT) 4 mg disintegrating tablet Take 4 mg by mouth every 6 hours as needed. DULCOLAX, BISACODYL, RECTAL by RECTAL route once daily as needed. lisinopril (ZESTRIL) 40 mg tablet Take 40 mg by mouth once daily. acetaminophen (TYLENOL) 650 mg suppository 650 mg by RECTAL route every 4 hours as needed for pain or fever (specify temp.). dextrose 40 % gel Take 15 g by mouth as needed. insulin aspart U-100 (NOVOLOG) 100 unit/mL Use via insulin pump Max daily dose 100 units, DX: E10.65 acetaminophen (TYLENOL) 325 mg tablet 2 tablets by ORAL/FEEDING TUBE route every 6 hours as needed for pain. aspirin, enteric coated (ADULT LOW DOSE ASPIRIN) 81 mg EC tablet Start ASA 81 mg BID on 10/24 Patient should start on October 25, 2023. metoprolol succinate ER (TOPROL XL) 100 mg Take 1 tablet by mouth every 12 hours at 6 am and [address] (NOXAFIL) 100 mg tablet Take 3 tablets by mouth once daily. senna-docusate (SENNA-S) 8.6-50 mg per tablet 1 tablet by ORAL/FEEDING TUBE route two times a day. No current facility-administered medications for this visit. Objective Physical Examination: Vital Signs: BP 135/54 (BP Site: Left Arm, BP Position: Sitting, BP Cuff Size: Regular Adult) Pulse 86 SpO2 100% General: Awake, alert, interactive, no acute distress, good nutritional status, normal development, well-kept Neurological Exam Mental Status Awake, alert and oriented to person, place and time. Recent and remote memory are intact. Speech is normal. Language is fluent with no aphasia. Cranial Nerves Cranial nerves normal unless stated otherwise. Motor Normal muscle bulk throughout. Strength is 5/5 in all four extremities except as noted. Severely diminished lower extremity strength Normal tone throughout with paratonia in LLE. No upper extremity bradkinesia or tremor. Reflexes Right Left Brachioradialis 2+ 2+ Biceps 2+ 2+ Patellar 2+ 2+ Achilles 1+ 1+ Assessment Ms. 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 Tobar for follow-up today. As you know she is a 58 year old right-handed female with a history of hydrocephalus since May 2022 . Subjective HISTORY OF PRESENT ILLNESS: During her previous visit the following plan was made: Previous plan-12/21/2023 Visit: Continue to work with Marlene for shunt adjustments, but this is likely optimized at the time Please try stopping gabapentin as this can sometimes cause leg swelling if this makes spasms worse you can resume the medication for now. In this case we can hold it after you've got the Botox Please proceed to get Botox injections Continue PT Follow up with Dr. Rosado or myself in 3 months [place] immediate relief of muscle spasms that wore off after 2.5 weeks. However she does notice that muscle spasms have been worse recently. Questionnaires: In addition, the following activities of daily living that may be affected by tremors were evaluated: Speaking: Not affected Feeding: Not affected Bringing Liquids to Mouth: Not affected Hygiene: Affected (mild) Dressing: Affected (marked) Writing: Not affected Working: Affected (severe) Number of falls in the Last Month: 1 Mood/Behavior Depression: PHQ-9 Score: 2 usually representing no significant (0-4) depression. Anxiety: NATALIIA-7 Total Score: 2 usually representing no significant (0-4) anxiety. Finally, the following table shows the patient's overall global physical and mental health using the PROMIS scale: PROMIS-10 Flowsheet Row Office Visit from 03/21/2024 in [facility] Visit from 11/29/2023 in [facility] Global Physical Health T Score 39.8 34.9 Global Mental Health T Score 50.8 45.8 0-10 Standard Pain Scale 4 3 *PROMIS-10 scoring scale: mean = 50, over 50 is above average, under 50 is below average ALLERGIES Allergen Reactions Demeral [Meperidine] GI Upset Nausea, pt states room spins Flexeril [Cyclobenz* Hives Orphenadrine Other: See Comments, Hives, Rash Versed [Midazolam] Mental Status Change Current Outpatient Medications Medication Sig bumetanide (BUMEX) 1 mg tablet Take 1 tablet by mouth every 12 hours. oxyCODONE ir (OXYIR) 5 mg capsule Take 5 mg by mouth every 4 hours as needed for pain. baclofen 5 mg tablet Take 10 mg by mouth. 1 tablet in morning, 1 tablet in the afternoon, 2 tabletsat night. 1 tablet at bedtime PRN cyanocobalamin (VITAMIN B-12) 1,000 mcg tab Take 1,000 mcg by mouth. glucagon 3 mg/actuation nasal spray (BAQSIMI) ondansetron orally disintegrating (ZOFRAN ODT) 4 mg disintegrating tablet Take 4 mg by mouth every 6 hours as needed. DULCOLAX, BISACODYL, RECTAL by RECTAL route once daily as needed. lisinopril (ZESTRIL) 40 mg tablet Take 40 mg by mouth once daily. acetaminophen (TYLENOL) 650 mg suppository 650 mg by RECTAL route every 4 hours as needed for pain or fever (specify temp.). dextrose 40 % gel Take 15 g by mouth as needed. insulin aspart U-100 (NOVOLOG) 100 unit/mL Use via insulin pump Max daily dose 100 units, DX: E10.65 acetaminophen (TYLENOL) 325 mg tablet 2 tablets by ORAL/FEEDING TUBE route every 6 hours as needed for pain. aspirin, enteric coated (ADULT LOW DOSE ASPIRIN) 81 mg EC tablet Start ASA 81 mg BID on 10/24 Patient should start on October 25, 2023. metoprolol succinate ER (TOPROL XL) 100 mg Take 1 tablet by mouth every 12 hours at 6 am and [address] (NOXAFIL) 100 mg tablet Take 3 tablets by mouth once daily. senna-docusate (SENNA-S) 8.6-50 mg per tablet 1 tablet by ORAL/FEEDING TUBE route two times a day. No current facility-administered medications for this visit. Objective Physical Examination: Vital Signs: BP 135/54 (BP Site: Left Arm, BP Position: Sitting, BP Cuff Size: Regular Adult) Pulse 86 SpO2 100% General: Awake, alert, interactive, no acute distress, good nutritional status, normal development,well-kept Neurological Exam Mental Status Awake, alert and oriented to person, place and time. Recent and remote memory are intact. Speech isnormal. Language is fluent with no aphasia. Cranial Nerves Cranial nerves normal unless stated otherwise. Motor Normal muscle bulk throughout. Strength is 5/5 in all four extremities except as noted. Severely diminished lower extremity strength Normal tone throughout with paratonia in LLE. No upper extremity bradkinesia or tremor. Reflexes Right Left Brachioradialis 2+ 2+ Biceps 2+ 2+ Patellar 2+ 2+ Achilles 1+ 1+ Assessment Ms. 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 She developed progressive weakness and involuntary movements in BLE. On exam, patient had spasticity and triple flexion in BLE in addition to weakness and hyperreflexia. Findings were concerningfor worsening hydrocephalus, especially given that her CT head in July 2023 showed larger ventricles compared to prior MRI. MRI of neuraxis was also repeated to rule out repeat infection. Shunt was placed again. On subsequent examination the dystonia had largely improved. However she suffered a leg fracture which has made recovery more completed than anticipated. Also has severe lower extremity edema, which may be secondary to gabapentin, though it was not clear whether this was the case basedon response after stopping it. Symptoms responded to both botulinum toxin and block, and should be expected to improve as the doseis optimized. [facility]erral to the [facility] should be considered depending on response. 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 Not discussed Thank you for allowing me to be part of the clinical care of this patient! I look forward to continued participation in the patient s care with you. Please do not hesitate to call with any questions. Sincerely, Reggie Butler MD Associate Staff Movement disorders [facility] documented in this encounterThe [facility]12-[facility]-2024 NoteCholesterol Ratio (LDL/HDL)March 18, 2024 10:45am0.92<2.54Reference:1. National Cholesterol Education Program ATP III Guideline At-A-Glance Quick Desk Reference: National Heart, Lung, and Blood [place]. National Institutes of Health. 2001: NIH PublicationNo. .2. An International Atherosclerosis Society position paper: global recommendations for the management of dyslipidemia: executive summary, Atherosclerosis. 2014: 232(2):410-413.[facility] Comment on above:Reference:1. National Cholesterol Education Program ATP III Guideline At-A-Glance Quick Desk Reference: National Heart, Lung, and Blood [place]. National Institutes of Health. 2001: NIH PublicationNo. .2. An International Atherosclerosis Society position paper: global recommendations for the management of dyslipidemia: executive summary, Atherosclerosis. 2014: 232(2):410413.03-18-2024 NoteCholesterol Ratio (LDL/HDL)March 18, 2024 10:45am0.92<2.54Reference:1. National Cholesterol Education Program ATP III Guideline At-A-Glance Quick Desk Reference: National Heart, Lung, and Blood [place]. National Institutes of Health. 2001: NIH PublicationNo. .2. An International Atherosclerosis Society position paper: global recommendations for the management of dyslipidemia: executive summary, Atherosclerosis. 2014: 232(2):410-413.[facility]Comment [facility] above:Reference:1. National Cholesterol Education Program ATP III Guideline At-A-Glance Quick Desk Reference: National Heart, Lung, and Blood [place]. National Institutes of Health. 2001: NIH PublicationNo. .2. An International Atherosclerosis Society position paper: global recommendations for the management of dyslipidemia: executive summary, Atherosclerosis. 2014: 232(2):410413. 03-18-2024 NoteCholesterol Ratio (LDL/HDL)March 18, 2024 10:45am0.92<2.54 Reference:1. National Cholesterol Education Program ATP III Guideline At-A-Glance Quick Desk Reference: National Heart, Lung, and Blood [place]. National Institutes of Health. 2001: NIH PublicationNo. .2. An International Atherosclerosis Society position paper: global recommendations for the management of dyslipidemia: executive summary, Atherosclerosis. 2014: 232(2):410-413.[facility] HospitalComment [facility] above:Reference:1. National Cholesterol Education Program ATP III Guideline At-A-Glance Quick Desk Reference: National Heart, Lung, and Blood [place]. National Institutes of Health. 2001: NIH PublicationNo. .2. An International Atherosclerosis Society position paper: global recommendations for the management of dyslipidemia: executive summary, Atherosclerosis. 2014: 232(2):410413. 03-18-2024 NoteCholesterol Ratio (LDL/HDL)March 18, 2024 10:45am0.92<2.54 Reference:1. National Cholesterol Education Program ATP III Guideline At-A-Glance Quick Desk Reference: National Heart, Lung, and Blood [place]. National Institutes of Health. 2001: NIH PublicationNo. 3305.2. An International Atherosclerosis Society position paper: global recommendations for the management of dyslipidemia: executive summary, Atherosclerosis. 2014: 232(2):410-413.[facility] HospitalComment on above:Reference:1. National Cholesterol Education Program ATP III Guideline At-A-Glance Quick Desk Reference: National Heart, Lung, and Blood [place]. National Institutes of Health. 2001: NIH PublicationNo. 3305.2. An International Atherosclerosis Society position paper: global recommendations for the management of dyslipidemia: executive summary, Atherosclerosis. 2014: 232(2):410413. 03-18-2024 History of Present illness Narrative* Shelbi Ramos MD - 03/18/2024 9:00 AM EST Neurology Clinic - March 18, 2024 Reason for visit: Ms. Tobar is referred by Marlene Cordero for my opinion regarding spasticity. My final recommendation will be communicated back to the requesting physician by way of shared medical record or letter. HISTORY OF PRESENT ILLNESS: Patient is a 58 year old, right-handed, White, female with history of asthma, bladder cancer, diabetes type 1, tibial fracture, HTN, meningitis, obesity, palpitations. History gathered from patient, cousin and electronic medical records. She had bladder cancer in 2020, stoma placed in Apr 2021. She mentions she was in and out the hospital for nausea/vomiting. 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 She is being followed by neurosurgery (Dr. Oconnor/Marlene Cordero), and ID(Dr. Mccarty). She was functional - walking unassisted, riding the bike outdoors. She had twisted bowel in Jun 2023. She went to [place], there was no bed in , transferred to [facility] for bowel obstruction. She had surgery (small bowel resection) 3 days later; had complication as ureters were dislodged and had to be re-attached. VPS was externalized and nothing was draining hence VPS was removed. She was discharged home. Two weeks after shunt was removed, noticed issues with balance, was falling and started having leg spasticity - leg stiffness, sudden episodes when legs would stretch out or flex into the body. She had f/u with neurosurgery and was scheduled to put VPS back(nov 2023). She fell in sep 2023, broke L tibia and fibular fractures needing surgery at .. she was transferred to to get VPS placed. She reports that she was able to walk with the walker day 1 post op. Spasms recurred in rehab([facility]), she can move her feet/toes but could not ambulate, can take steps with parallel bars(L >R, has more difficulty with RLE). She was able to ambulate with platform walker upon discharge(02/15/24). She had home PT upon discharge but not enough hence lost what she has gained. She was in [place] [facility] on 02/07/24, had 'dizzy' - wavy vision after bending over. CT showed shunted ventricles had slit like appearance. Saw neurosurgery on 02/08/24 and adjusted shunt from 7 to 8(closed). She reports that spasms are worse since shunt adjustment. Legs are worse, went to PT yesterday, took 3 PT to get her up(usually 1-person assist), she could usually stand x 5 minutes but yesterday, could only do 20-60 seconds. She has already seen movement disorder(Dr. Mckenzie) in dec 2023. She has also received botox in (Dr. Daniels). PAST MEDICAL HISTORY Diagnosis Date Asthma 02/16/2021 Bladder cancer (HCC) 02/2021 urothelial carcinoma Diabetes mellitus type 1 (HCC) 04/13/2021 diagnosed at age 6 Fracture of tibia 09/2023 HTN (hypertension) 02/16/2021 Meningitis 2022 Patient reported shunt placement (with subsequent removal and re-placement in September,) Neoplasm of bladder 02/16/2021 Obesity 02/16/2021 Palpitations 02/16/2021 PAST SURGICAL HISTORY Procedure Laterality Date CYSTECTOMY W/BI PELVIC LYMPHADENECTOMY 04/2021 CYSTO.PANENDO 05/25/2021 EXPLORATORY OF ABDOMEN 12/17/2021 Reduction of small-bowel volvulus PAST SURGICAL HISTORY OF right ovary removed PAST SURGICAL HISTORY OF ORIF right ankle PAST SURGICAL HISTORY OF 02/18/2021 TURBT REMOVAL OF BLADDER & NODES VAGINAL HYSTERECTOMY MEDICATIONS: Current Outpatient Medications Medication Sig Dispense Refill furosemide (LASIX) 20 mg tablet Take 20 mg by mouth once daily. oxyCODONE ir (OXYIR) 5 mg capsule Take 5 mg by mouth every 4 hours as needed for pain. baclofen 5 mg tablet Take 10 mg by mouth. 1 tablet in morning, 1 tablet in the afternoon, 2 tabletsat night. 1 tablet at bedtime PRN cyanocobalamin (VITAMIN B-12) 1,000 mcg tab Take 1,000 mcg by mouth. glucagon 3 mg/actuation nasal spray (BAQSIMI) ondansetron orally disintegrating (ZOFRAN ODT) 4 mg disintegrating tablet Take 4 mg by mouth every 6 hours as needed. DULCOLAX, BISACODYL, RECTAL by RECTAL route once daily as needed. lisinopril (ZESTRIL) 40 mg tablet Take 40 mg by mouth once daily. acetaminophen (TYLENOL) 650 mg suppository 650 mg by RECTAL route every 4 hours as needed for pain or fever (specify temp.). dextrose 40 % gel Take 15 g by mouth as needed. insulin aspart U-100 (NOVOLOG) 100 unit/mL Use via insulin pump Max daily dose 100 units, DX: E10.65 acetaminophen (TYLENOL) 325 mg tablet 2 tablets by ORAL/FEEDING TUBE route every 6 hours as needed for pain. aspirin, enteric coated (ADULT LOW DOSE ASPIRIN) 81 mg EC tablet Start ASA 81 mg BID on 10/24 Patient should start on October 25, 2023. metoprolol succinate ER (TOPROL XL) 100 mg Take 1 tablet by mouth every 12 hours at 6 am and [address] (NOXAFIL) 100 mg tablet Take 3 tablets by mouth once daily. senna-docusate (SENNA-S) 8.6-50 mg per tablet 1 tablet by ORAL/FEEDING TUBE route two times a day. No current facility-administered medications for this visit. ALLERGY: ALLERGIES Allergen Reactions Demeral [Meperidine] GI Upset Nausea, pt states room spins Flexeril [Cyclobenz* Hives Orphenadrine Other: See Comments, Hives, Rash Versed [Midazolam] Mental Status Change FAMILY HISTORY Problem Relation Age of Onset Anesthesia Problems No Family History Colon Cancer No Family History Aneurysm No Family History Social History Tobacco Use Smoking status: Never Smokeless tobacco: Never Vaping Use Vaping status: Never Used Substance Use Topics Alcohol use: Not Currently Drug use: Never DATA: Radiology: CT brain - 02/07/[address] shows no evidence of acute intracranial bleeding or of a sizable/large acute brain parenchymal abnormality. Shunted ventricles with interval significant size reduction, now with areas of slitlike appearance (which should be correlated clinically to exclude over shunting). No hydrocephalus. Mild chronic brain parenchymal changes and other details as above CT brain - 01/10/24 Increased caliber of the lateral and third ventricles from 11/29/2023 with otherwise unchanged positioning of the ventriculostomy catheter. Laboratory: Latest Ref Rng 12/21/2023 02/06/2024 02/07/2024 WBC 3.70 - 11.00 k/uL 4.75 RBC 3.90 - 5.20 m/uL 4.22 Hemoglobin 11.5 - 15.5 g/dL 12.5 Hematocrit 36.0 - 46.0 % 39.2 MCV 80.0 - 100.0 fL 92.9 MCH 26.0 - 34.0 pg 29.6 MCHC 30.5 - 36.0 g/dL 31.9 RDW-CV 11.5 - 15.0 % 16.1 (H) Platelet Count 150 - 400 k/uL 274 MPV 9.0 - 12.7 fL 9.0 Neut% % 55.9 Abs Neut (ANC) 1.45 - 7.50 k/uL 2.65 Lymph% % 28.8 Abs Lymph 1.00 - 4.00 k/uL 1.37 Tama% % 11.6 Abs Tama <0.87 k/uL 0.55 Eosin% % 2.3 Abs Eosin <0.46 k/uL 0.11 Baso% % 0.8 Abs Baso <0.11 k/uL 0.04 Immature Gran % % 0.6 IMMATURE GRANS (ABS) <0.10 k/uL 0.03 NRBC /100 WBC 0.0 Absolute nRBC <0.01 k/uL <0.01 DTYPE Auto Protein, Total 6.3 - 8.0 g/dL 6.7 Albumin 3.9 - 4.9 g/dL 4.1 Calcium 8.5 - 10.2 mg/dL 9.5 Bilirubin, Total 0.2 - 1.3 mg/dL 0.2 Alkaline Phosphatase 34 - 123 U/L 141 (H) AST 13 - 35 U/L 14 ALT 7 - 38 U/L 19 Glucose 74 - 99 mg/dL 102 (H) BUN 7 - 21 mg/dL 26 (H) Creatinine 0.58 - 0.96 mg/dL 0.71 Sodium 136 - 144 mmol/L 143 Potassium 3.7 - 5.1 mmol/L 3.9 Chloride 98 - 107 mmol/L 104 CO2 22 - 30 mmol/L 30 Anion Gap 8 - 15 mmol/L 9 eGFR >=60 mL/min/1.73m 99 CRP <0.9 mg/dL <0.3 Hemoglobin A1C (POCT) 4.3 - 5.6 % 6.6 ! Other: REVIEW OF SYSTEMS: per HPI General: (+) wt. Gain - 20 lbs 3 months, (-) change in appetite, fever, malaise HEENT: no headache, problems with vision, hearing Cardiac: no chest pain, palpitation Respiratory: no shortness of breath, cough, cold GI: no change in bowel habits, abdominal pain : no incontinence, frequency, urgency Musculoskeletal: no joint/muscle pain, no swelling Skin: no rash Endocrine: no cold/hot intolerance, thyroid, (+)diabetes Immunologic: no known immunologic disorders Neurologic/Psychiatric: no other known neurologic or psychiatric problems PHYSICAL EXAM: BP 145/56 Pulse 75 HEENT: atraumatic, normocephalic Neck: supple Extremities: good pulses NEUROLOGICAL EXAM: MSE: Awake, alert, oriented x 3, language intact, attention and concentration normal CN: EOMI, no nystagmus, V1-V3 intact, no facial weakness, normal hearing to communication, good elevation of soft palate, tongue midline with good strength, no dysarthria Motor: Gait: wheelchair No pronator drift, rapid finger movements are symmetrical Increased tone in both legs(L>R), normal bulk No adventitious movements Power: Right Left Neck flexion 5/5 Neck extension 5/5 Trapezius 5/5 5/5 Deltoids 5/5 5/5 Biceps 5/5 5/5 Triceps 5/5 5/5 Wrist Ext 5/5 5/5 Wrist Flex 5/5 5/5 Finger Ext 5/5 5/5 FDI 5/5 5/5 ADM 5/5 5/5 APB 5/5 5/5 FDP 2,3 5/5 5/5 FDP 4,5 5/5 5/5 FPL /5 5/5 Hip Flexors 4+/5 5/5 *- hard to control from spasms Knee Extensors 5/5 5/5 Knee Flexors /5 5/5 Ankle DF 3-4/5 * 4/5* Ankle PF 5/ 5/5 Toe Flexion 0-1/5 * 0-1/5* Toe Extension 0-1/5 * 0-1/5* Coordination: intact finger to nose and heel to jones Reflexes: B T Br K A Plantars *- not relaxed R 2+ 2+ 2+ 2+ 0 down L 2+ 2+ 2+ 0* 0 down Sensory: intact to light touch, pinprick, position and reduced vibration at toes(normal at ankles) Romberg's deferred ASSESSMENT AND PLAN: Miss Tobar is a 58 y/o female with h/o asthma, bladder cancer, diabetes type 1, tibial fracture,HTN, 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 Examination reveals increased tone in bilateral lower extremities with possible distal weakness( limited by increased tone) with mild reduced vibration. Unsure if she truly has neuropathy as sensory exam is not bad, suspect motor exam may be hampered by increased tone. Blood work - B12/MMA, MPA, urine monoclonal antibody May consider EMG, will order but she will discuss with team further Symptomatic treatment - on baclofen Better control of blood sugars, avoid fluctuations Up to date with ophthalmology and podiatry Currently working with PT Follow-up as needed if EMG is completed. I spent a total of 80 minutes on the date of the service which included preparing to see the patient, [id number] patient care, completing clinical documentation, obtaining and/or reviewing separately obtained history, performing a medically appropriate examination, counseling and educating the pat ient/family/caregiver, ordering medications, tests, or procedures, and communicating results to thepatient/family/caregiver. My final recommendations will be communicated back to the requesting physician by way of shared medical record or letter via US mail. Shelbi Ramos MD Neurology Please send a copy of clinic note to: 1. Chikis Tobar [phone] [address] [facility] [address] 2. Marlene Cordero [id number] [facility] [id number] documented in this encounterThe [facility]12-03-2024 NoteHNO ID: [id number] Author: SHELBI RAMOS MD Service: ? Author Type: Physician Type: Progress Notes Filed: 03/18/2024 10:22 Note Text: Neurology Clinic - March 18, 2024 Reason for visit: Ms. Tobar is referred by Marlene Cordero for my opinion regarding spasticity. My final recommendation will be communicated back to the requesting physician by way of shared medical record or letter. HISTORY OF PRESENT ILLNESS: Patient is a 58 year old, right-handed, White, female with history of asthma, bladder cancer, diabetes type 1, tibial fracture, HTN, meningitis, obesity, palpitations. History gathered from patient, cousin and electronic medical records. She had bladder cancer in 2020, stoma placed in Apr 2021. She mentions she was in and out the hospital for nausea/vomiting. 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 She is being followed by neurosurgery (Dr. Oconnor/Marlene Cordero), and ID(Dr. Mccarty). She was functional - walking unassisted, riding the bike outdoors. She had twisted bowel in Jun 2023. She went to [place], there was no bed in , transferred to [facility] for bowel obstruction. She had surgery (small bowel resection) 3 days later; had complication as ureters were dislodged and had to be re-attached. VPS was externalized and nothing was draining hence VPS was removed. She was discharged home. Two weeks after shunt was removed, noticed issues with balance, was falling and started having leg spasticity - leg stiffness, sudden episodes when legs would stretch out or flex into the body. She had f/u with neurosurgery and was scheduled to put VPS back(nov 2023). She fell in sep 2023, broke L tibia and fibular fractures needing surgery at .. she was transferred to to get VPS placed. She reports that she was able to walk with the walker day 1 post op. Spasms recurred in rehab([facility]), she can move her feet/toes but could not ambulate, can take steps with parallel bars(L >R, has more difficulty with RLE). She was able to ambulate with platform walker upon discharge(02/15/24). She had home PT upon discharge but not enough hence lost what she has gained. She was in [facility] on 02/07/24, had 'dizzy' - wavy vision after bending over. CT showed shunted ventricles had slit like appearance. Saw neurosurgery on 02/08/24 and adjusted shunt from 7 to 8(closed). She reports that spasms are worse since shunt adjustment. Legs are worse, went to PT yesterday, took 3 PT to get her up(usually 1-person assist), she could usually stand x 5 minutes but yesterday, could only do 20-60 seconds. She has already seen movement disorder(Dr. Mckenzie) in dec 2023. She has also received botox in Dec 2023(Dr. Daniels). PAST MEDICAL HISTORY Diagnosis Date Asthma 02/16/2021 Bladder cancer (HCC) 02/2021 urothelial carcinoma Diabetes mellitus type 1 (HCC) 04/13/2021 diagnosed at age 6 Fracture of tibia 09/2023 HTN (hypertension) 02/16/2021 Meningitis 2022 Patient reported shunt placement (with subsequent removal and re-placement in September,) Neoplasm of bladder 02/16/2021 Obesity 02/16/2021 Palpitations 02/16/2021 PAST SURGICAL HISTORY Procedure Laterality Date CYSTECTOMY W/BI PELVIC LYMPHADENECTOMY 04/2021 CYSTO.PANENDO 05/25/2021 EXPLORATORY OF ABDOMEN 12/17/2021 Reduction of small-bowel volvulus PAST SURGICAL HISTORY OF right ovary removed PAST SURGICAL HISTORY OF ORIF right ankle PAST SURGICAL HISTORY OF 02/18/2021 TURBT REMOVAL OF BLADDER AND NODES VAGINAL HYSTERECTOMY MEDICATIONS: Current Outpatient Medications Medication Sig Dispense Refill furosemide (LASIX) 20 mg tablet Take 20 mg by mouth once daily. oxyCODONE ir (OXYIR) 5 mg capsule Take 5 mg by mouth every 4 hours as needed for pain. baclofen 5 mg tablet Take 10 mg by mouth. 1 tablet in morning, 1 tablet in the afternoon, 2 tablets at night. 1 tablet at bedtime PRN cyanocobalamin (VITAMIN B-12) 1,000 mcg tab Take 1,000 mcg by mouth. glucagon 3 mg/actuation nasal spray (BAQSIMI) ondansetron orally disintegrating (ZOFRAN ODT) 4 mg disintegrating tablet Take 4 mg by mouth every 6 hours as needed. DULCOLAX, BISACODYL, RECTAL by RECTAL route once daily as needed. lisinopril (ZESTRIL) 40 mg tablet Take 40 mg by mouth once daily. acetaminophen (TYLENOL) 650 mg suppository 650 mg by RECTAL route every 4 hours as needed for pain or fever (specify temp.). dextrose 40 % gel Take 15 g by mouth as needed. insulin aspart U-100 (NOVOLOG) 100 unit/mL Use via insulin pump Max daily dose 100 units, DX: E10.65 acetaminophen (TYLENOL) 325 mg tablet 2 tablets by ORAL/FEEDING TUBE route every 6 hours as needed for pain. aspirin, enteric coated (ADULT LOW DOSE ASPIRIN) 81 mg EC tablet Start ASA 81 mg BID on 10/24 Patient should start on October 25, 2023. metoprolol succinate ER (TOPROL XL) 100 mg Take 1 tablet by mouth every 12 hours at 6 am and 6 pm. posacon (more content not included)...[facility]11-11-2024 Evaluation note* Diagnosis Onset Date Resolution Status Admit Date Chronic venous insufficiency acuteFebruary 25, 2024 3:46pmFoot ulcer, leftacuteNov2023 3:46pm HTN (hypertension)acuteFebruary 25, 2024 3:46pmHydrocephalusacuteFebruary 25, 2024 3:46pmTibia fractureacuteNov2023 3:46pmType 1 diabetes mellitus with hyperglycemia2023 3:46pmChronic venous insufficiencyacuteApruary 2024 1:15pmFoot ulcer, leftacuteJanuary 2024 1:15pmHTN (hypertension)acuteApril 29, 2024 1:15pmHydrocephalusacute Brittany 2024 1:15pmTibia fractureacuteJanuary 2024 1:15pm Transitional cell bladder canceracuteJanuary 2024 1:15pmType 1 diabetes mellitus with hyperglycemiaacuteJanuary 2024 1:15pm [facility] Work Phone: 1(396) 397-421111-11-2024 Evaluation note* Diagnosis Onset Date Resolution Status Admit Date Chronic venous insufficiency acuteNovember 2023 3:46pmFoot ulcer, leftacuteNovember 2023 3:46pm HTN (hypertension)acuteNovember 2023 3:46pmHydrocephalusacuteNovember 2023 3:46pmTibia fractureacuteNovember 2023 3:46pmType 1 diabetes mellitus with hyperglycemiaacuteNovember 2023 3:46pmChronic venous insufficiencyacuteJanuary 2024 1:15pmFoot ulcer, leftacuteJanuary 2024 1:15pmHTN (hypertension)acuteJanuary 2024 1:15pmHydrocephalusacute Brittany 2024 1:15pmTransitional cell bladder canceracuteJanuary 2024 1:15pmType 1 diabetes mellitus with diabetic peripheral angiopathy without gangreneacuteJanuary 2024 1:15pmType 1 diabetes mellitus with hyperglycemiaacuteJanuary 2024 1:15pmChronic venous insufficiencyacute May 20, 2024 2:25pmImpaired mobility and ADLsacuteFebruary 2024 2:25pmLymphedemaacuteFebruary 2024 2:25pmPressure injury of left heel, unstageableacuteFebruary 2024 2:25pmType 1 diabetes mellitusacuteFebruary 2024 2:25pm [facility] Work Phone: 1(297) 977-614511-01-2024 NoteHNO ID: [id number] Author: ZHENG September,N.STABLE HELPER Service: ? Author Type: Nurse Practitioner Type: Progress Notes Filed: 02/15/2024 21:48 Note Text: Connected Care Unit Discharge Summary SNF Connected Care Program [address], [address] ([address]) [place] [address] CONNECTED CARE DISCHARGE SUMMARY Service Date: 02/15/2024 Admission Date: 11/07/2023 Discharge Date: 02/15/2024 Facility: [facility] Level of Care: Skilled SNF Attending: Amelia Parisi D.O. Connected Care Primary Care Physician: Kalli Simons MD Principal Diagnosis: Obstructive hydrocephalus (hcc) (primary encounter diagnosis) Fungal meningitis S/p vp patient shunt Bilateral lower extremity edema Essential hypertension Diabetes mellitus type 1, controlled, without complications (hcc) Malignant neoplasm of urinary bladder, unspecified site (hcc) Subacute Course: Per DC Summary (11/07/2023): This is a 58-year-old female with PMHx signficant for T1DM cb/ DKA, urothelial carcinoma of the bladder s/p radical cystectomy and ileal conduit c/b SBO (Dec 2021), HTN, chronic sinusitis, asthma, persistent encephalopathy and hydrocephalus. 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 She was followed by ID at [facility] and was on posaconazole. She is s/p shunt externalization at [facility] (06/27/23) during abdominal surgery for SBO and eventual VPS explantation (07/10/23). She was originally scheduled for shunt reinternalization with Dr. Oconnor on 11/20/23. She fell due to leg spasms and presented to [facility] ED and admitted on 10/07/23. Found to have L tibial fx s/p intramedullary nail Dr. Morejon at [facility] (10/08/23). She was then transferred to [facility] [place] reimplantation. She is s/pVPS reimplantation by Dr. Oconnor and Dr. Evans on 10/14. Intraoperative CSF cultures without growth. Plan to continue posaconazole at least through end of this year. Seen by [facility] for wounds as below - Coccyx : healed. -Left posterior heel: POA -Left anterior foot : Deep Tissue Pressure Injury, acquired Pt improved at Acute rehab however was recommended snf before returning home. She was followed with Neurology for shunt adjustments due to unresolved spacticity and pain. During SNF admission, patient's underlying comorbidities were managed appropriately while addressing any acute issues that were present. Pt participated in PT/OT without complications. No falls were reported during SNF admission. Any changes in condition or complications during admission were treated appropriately. She was treated w Robaxin and Gabapentin was started on 11/04 at snf for BLE spasms. She continued to f/u with outpatient Neuro for hydrocephalus with BLE weakness/ongoing disabling spacticity managed w/ Certas valve shunt adjustments. She developed ulcers from ortho bbot and was followed by Wound team. Was taken off posaconazole x 3 weeks on 11/16/23 to see if spasticity is a side effect. Started Medrol dose pack x 1 week on 11/28 w/ no improvement. 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 Robaxin and medrol were dc'd. Gabapentin was increased, started baclofen 10-10-20 mg. ID restarted posaconazole on 12/08/2023. Spasms not a side effect of the drug. Given pred taper on 12/12 with some improvement. Developed severe leg edema, thought to be due to gabapentin which was stopped by Neurology. Tried phenol nerve blocks for bilateral obterator nerve AND 1st trial of Botox injection 275 units on 01/11/2024 w/ some positive results for about 2 weeks. Given lasix 20 mg daily x 7 days (started 01/07) for BLE edema w/ some improvement by 01/09 and had minimal edema by end of Lasix therapy on 01/14. Also s/p nerve block. Edema recurred by 01/17. Started Lasix 20 mg po M// and changed to daily on 01/28. May need referral to lymphedema clinic. Discharge on 01/22 was held. Since patient restarted on Lasix she was concerned about getting a repeat Echo (Last Echo was ~ 2019 w/ her Account Group Supervisor in [place]). Pt is on ASA, Lisinopril, Toprol, Lasix. Recommended that patient establishes with a local battery assembler dry cell . Echo was done ( ~ 02/04). Pt has made an appointment with Cardiology but couldn't get in until 05/29/2024. Pt states she will forward the ECHO to her Account Group Supervisor in [place] in the meantime. Was evaluated in ED on 02/06 due to blurred vision. Work up negative except for possible urine infection. Was treated in ED with Rocephin x 1 (more content not included)...[facility]10-30-2024 History of Present illness Narrative* Con Oconnor MD - 02/13/2024 10:42 AM EDT Chief Complaint: Communicating hydrocephalus History of Present Illness: Chikis Tobar is a 58 year old female with a past medical history of with communicating hydrocephalus who returns to clinic for follow-up. Chikis saw us last week. Her Certas valve was increased from 7 to 8. Since then, she has felt like her feeling in her legs is better. She still has the cramping. Objective: BP (!) 105/45 Pulse 79 Ht 165.1 cm (5' 5 ) Wt 67.1 kg (148 lb) SpO2 100% BMI 24.63 kg/m General Appearance: no apparent distress, well-developed Neurological: Cognitive: Awake and oriented x3. Cranial nerves: PERRL, EOMI, face symmetric Motor: Moves all extremities bilaterally 5/5, normal muscle tone and bulk Sensation: Intact to light touch. Diagnostic testing No new imaging Assessment/Plan: Chikis Tobar is a 58 year old female with NPH and right VPS with Certas at 8. Plan to follow-up in 1 month with repeat CTH. Refer to neuromuscular specialist for spasms in bilateral lower extremities not explained by hydrocephalus/shunt. I spent 10 minutes in the visit, with more than 50% of the total [id number] time of the visit in counseling / coordination of care. SIGNATURE: Con Oconnor MD DATE of SERVICE: February 13, 2024 documented in this encounterThe [facility]10-[facility] Instructions* Patient Instructions* Noel Daniels MD - 02/11/2024 3:56 PM EDT Thank you for your visit today. We will plan to see you in 9 weeks for next set of botulinum toxin A injections. Please note that your next injections should not be scheduled less than 90 days from today. Additional changes/recommendations - Continue daily range of motion and stretching exercises - Continue working with OT and PT - Continue timely pressure relief and change in position Medications - Continue Baclofen [id number] and 10mg PRN dose of Baclofen at bedtime. Please contact our office via [employer] or by phone at [phone] with any questions or concerns. If your health insurance changes before the next injections, please contact our office at [phone] as soon as possible so we can submit a new pre- authorization if needed. Please note that we may not be able to perform the injections if your insurance changes and the treatment is not pre-authorized. documented in this encounterThe [facility]10-28-[facility] History of Present illness Narrative* Noel Daniels MD - 02/11/2024 3:30 PM EDT Images from the original note were not included. PM&R VIRTUAL FOLLOW UP APPOINTMENT I have communicated my name and active licensure. The patient's identity and physical location wereverified at the time of this visit. Either the patient or their legal billing customer service representative has been informed of the risks and benefits of -- and alternatives to -- treatment through a remote evaluation andconsents to proceed with the evaluation remotely. This visit was completed via Virtual Visit. All issues as below were discussed and addressed but nophysical exam was performed unless allowed by visual confirmation on Virtual Visit. If it was felt that the patient should be evaluated in clinic then they were directed there. Patient verbally consented to visit. Patient accompanied by : Self Current complaints: Spasticity and spasms Brief HPI: Chikis Tobar is a 58 year old right-handed female with past medical history of T1DM cb/ DKA, urothelial carcinoma of the bladder s/p radical cystectomy and ileal conduit c/b SBO (Dec 2021), HTN, chronic sinusitis, asthma, fungal meningitis, myelitis and hydrocephalus status post 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 plac ement June 2022, externalization on 06/25/2023, removal 07/10/2023 and reimplantation on 10/15/2023. Patient experienced impaired mobility and functions after removal of shunt and noted minimal improvement in lower extremity function post shunt reimplantation. She was evaluated in PM&R spasticity clinic initially on 12/04/2023 for paraplegia and associated severe spasticity and flexor spasms. Sheis currently at long term facility. She received initial botulinum toxin A injection and obturator nerve block on 01/11/24. She is seen in clinic today for post-injection assessment. History since last visit: Limited benefit with botox for 2 weeks and spasms recurred. Improvement in transfer and mobility with PT. Used platform walker with PT but unable to advance right foot, took step with left foot. Reports benefit with nerve block and has been able to separate the legs easily. She feels that the tightness in the groin muscles is coming back but it is better than preinjection level and manageable at this time. She is getting additional dose of baclofen 10 mg at bedtime. She was started on gabapentin by staffat her facility. Per patient, this has been tried before and has not helped with spasms or spasticity. She is not interested in continuation of gabapentin. Robaxin and steroids have been discontinued. Of note her leg swelling has responded well to Lasix and elevation. She is also working with PT on management of edema/swelling. She denies any concerns. -Hospitalization/ER visit: Yes-02/07/2024, started on Bactrim for suspected UTI -New weakness or numbness: No -Fever or flu like symptoms : No -Ongoing antibiotics: Bactrim -Other: Plan to follow up with NSGY for shunt adjustment next week for shunt over drainage -Anticoagulation/antiplatelet medications: Aspirin -Allergy to cow milk protein: No -Denies any concerns with GI or function: none, denies any symptoms of UTI Spasticity treatment: -Home exercise routine: - -PT/OT: Yes Daily physical therapy -Medications: Baclofen 10 mg-10 mg - 20 mg, tolerating well, denies any side effects, 10 mg as needed dose at bedtime -Botulinum toxin therapy: Yes-275 units on 01/11/2024 -Nerve block or neurolysis: Yes-phenol nerve block for bilateral obturator nerve on 01/11/2024 -Other/orthosis: No Patient goals: -reduce lower extremity spasms -Reduce discomfort/pain associated with spasms -Improve participation in therapies -Improve positioning in bed, wheelchair -Improve mobility/transfers and ambulation BT therapy effective? Yes - stiffness and spasms/cramps Duration of benefit: 2 weeks Side effects: No Pain related to the purpose of the visit: No 0 on a scale of 0 to 10 Patient Entered Data PROMIS No data to display Spasticity NRS No data to display Spasm Scale No data to display Global Impression of Change No data to display Nutritional status: appetite , weight , swallowing - stable Driving issues: NA Safety concerns regarding living situations and safety at home: NA At risk for falling: Yes . No falls recently Examination: There were no vitals taken for this visit. Limited examination due to virtual nature of visit Alert and awake patient without any distress Face appears symmetrical at rest and on activity Speech articulated with intact comprehension Able to provide treatment history Asking appropriate question Assessment: Chikis Tobar is a 58 year old right-handed female with past medical history of T1DM cb/ DKA, urothelial carcinoma of the bladder s/p radical cystectomy and ileal conduit c/b SBO (Dec 2021), HTN, chronic sinusitis, asthma, right frozen shoulder, fungal meningitis, myelitis and hydrocephalus st atus post initial 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 placement June 2022 and reimplantation in 10/15/2023. She has paraplegia with severe spasticity and flexor spasms which is limiting her functions and participation in therapies. She received initial botulinum toxin a injection and phenol nerve block for lower extremity spasticity and spasms on 01/11/2024 and she was seen in clinic today to discuss postinjection effect. She reports benefit with Botox injection for 2 weeks and has ongoing benefit with phenol nerve block. She is interested to continue spasticity intervention. (G82.22) Chronic incomplete spastic paraplegia (HCC) (primary encounter diagnosis) (M62.838) Spasm of muscle (G04.91) Myelitis (HCC) (Z74.09, Z78.9) Impaired mobility and activities of daily living Plan: Follow up in 9 weeks for next set of Botulinum toxin A injections. Consider dose increment for lefthip flexors, left hamstrings during next visit. Recommended patient to bring video of transfers, standing and ambulation with PT. Continue working with PT. Continue ROM and stretching exercise at home Continue timely pressure relief when changing position Continue Baclofen [id number]. Ok to give 10mg PRN dose of Baclofen at bedtime. Explained to patient that phenol nerve block can be repeated once the effect starts to wean off andthere is no need to wait for 3 months. Patient will contact office when effect of phenol nerve block wears of. Time spent with patient: 30 mins Noel Daniels MD Physical Medicine & Rehab [facility] documented in this encounterThe [facility]10-25-2024 History of Present illness Narrative* Con Oconnor MD - 02/08/2024 2:53 PM EDT CC: 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 f/u HPI: Mrs Chikis Tobar comes to clinic today for surgical f/u. 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 Chikis's shunt was previously removed at [facility] on 07/10/23 following surgery for bowel obstruction followed by worsening symptoms. On 11/29/[address] brain showed further reduction in ventricle size and small bilateral subdural hygromas and her shunt was adjusted to 8. She was last seen on 01/10/24 where previous slit like ventricles had relaxed and hygromas resolved. At last visit her valve was adjusted from 8 to 7. She was seen in the ED yesterday with complaints of vertigo. CT brain in ED again showed slit like ventricles. Chikis states she has not seen noticible improvement following adjustment to 7. Her major complaint continues to be spasms and edema in the bilateral legs. Focused Exam: Right frontal shunt site examined, [...] XII: Tongue protrusion full and midline Motor: bilateral lower extremity spasticity I obtained the history and performed the physical exam. I have reviewed the information dictated byMarlene Cordero PA-C for accuracy. I have edited the note and agree with the final text. Shunt information Shunt type: Certas Initial settin New settin Marlene Cordero PA-C [facility] STAFF PHYSICIAN NOTE OF PERSONAL INVOLVEMENT IN CARE I have reviewed the Clinic Note obtained and documented by the RN/STEVE and I personally participatedin the gordon components. I have discussed the case and management of the patient's care. Impression: Chikis continues to have falls despite shunt implantation. Her Certas valve setting has varied from 6-8 and has not had any improvement in her leg spasms that result in her falls. She does state that when the shunt is open, she notices a slight improvement in her balance. In the past she had developed a small subdural hematoma, which indicates that her shunt is working. Her recent setting at 7 has not had any subdural. Given the risk of recurrent subdural with falls, we will put the shunt at 8, follow-up next week for symptom changes, and then repeat CTH shortly thereafter. If atany point she declines, we can open the shunt back up at 7. I spent 20 minutes in the visit, with more than 50% of the total tlbn-[id number] time of the visit in counseling / coordination of care. SIGNATURE: Con Oconnor MD DATE of SERVICE: February 12, 2024 documented in this encounterThe [facility]10-25-2024 Telephone encounter Note * Telephone Encounter - Marlene Cordero PA-C - 02/08/2024 11:50 AM EDT Call to Chikis, She will present for shunt adjustment today. Marlene Cordero PA-C [facility] Work Phone: 1(734) 877-567110-25-2024 Miscellaneous Notes* Telephone Encounter - Marlene Cordero PA-C - 02/08/2024 11:50 AM EDT Call to Chikis, She will present for shunt adjustment today. Marlene Cordero PA-C documented in this encounterThe [facility]10-24-2024 NoteHNO ID: [id number] Author: KHANH ANDUJAR RT(R) Service: ? Author Type: Technologist Type: Progress Notes Filed: 02/07/2024 23:31 Note Text: Radiology Service Progress Note PATIENT NAME: Chikis Tobar DATE OF SERVICE: February 07, 2024 TIME: 11:31 PM PATIENT IDENTITY VERIFICATION COMPLETED USING TWO (2) IDENTIFIERS: Name and Date of confirmed by patient verbally and Name and Date of confirmed by identification band. FALL SCREENING: Has the patient had 2 falls in the last year or 1 fall with injury or currently using an Ambulatory Assistive Device (Walker, Cane, Wheelchair, Crutches, etc.)? Emergency Room Patient: Screened in ED PATIENT GENDER DATA: Female. status: : No status: NO. PATIENT RELEVANT IMPLANT DATA REVIEWED: Not Applicable PATIENT PRESENTS WITH AN IMPLANTABLE OR ATTACHED AIRCRAFT DESIGN ENGINEER: No RADIOLOGY DEPARTMENT: General X-ray: Exam(s) Completed: Skull X-Ray- 5V SHUNT SERIES PERIPHERAL IV DATA: Not applicable SIGNED BY: RT Epifanio(Randy) February 07, 2024 11:31 [id number] (AGENT OF COVID- 19) RNA: Not detected INFLUENZA A RNA: Not detected INFLUENZA B RNA: Not detected RESPIRATORY SYNCYTIAL VIRUS (RSV) RNA: Not detectedCottonwood HospitalComment on above:Performed By: #### [id number] ####[facility] LABORATORYCLIA [id number] [facility] [place] [address] [place] [id number] NoteHNO ID: [id number] Author: KHANH ANDUJAR RT(Randy) Service: ? Author Type: Technologist Type: Progress Notes Filed: 02/07/2024 23:31 Note Text: Radiology Service Progress Note PATIENT NAME: Chikis Tobar DATE OF SERVICE: February 07, 2024 TIME: 10:57 PM PATIENT IDENTITY VERIFICATION COMPLETED USING TWO (2) IDENTIFIERS: Name and Date of confirmed by patient verbally and Name and Date of confirmed by identification band. FALL SCREENING: Has the patient had 2 falls in the last year or 1 fall with injury or currently using an Ambulatory Assistive Device (Walker, Cane, Wheelchair, Crutches, etc.)? Emergency Room Patient: Screened in ED PATIENT GENDER DATA: Female. status: : No status: NO. PATIENT RELEVANT IMPLANT DATA REVIEWED: Not Applicable PATIENT PRESENTS WITH AN IMPLANTABLE OR ATTACHED AIRCRAFT DESIGN ENGINEER: No RADIOLOGY DEPARTMENT: General X-ray: Exam(s) Completed: Skull X-Ray- 5 VIEW SHUNT SERIES PERIPHERAL IV DATA: Not applicable SIGNED BY: RT Epifanio(R) February 07, 2024 10:57 [facility] [id number] History of Present illness Narrative* Sharan Dominguez APRN.STABLE HELPER - 02/07/2024 4:44 PM EDT Images from the original note were not included. [facility] PROVID[facility] PRO[facility] - FOLLOW UP VISIT PATIENT NAME: Chikis Tobar SERVICE DATE: 02/07/[address] OF SERVICE FOR THIS VISIT[facility] (POS [address]), Facility Name: [facility] Level of Care: Skilled Asked to see patient at the request of and in collaboration with Dr. Parisi for my opinion regardingpressure injury of the left heel. Requested to see patient today for wound assessment and treatment evaluation CHIEF COMPLAINT: Follow up wound care evaluation of pressure injury of the left heel. INTERVAL HISTORY Information provided by: Chart review and Patient 58 year old y/o female who presents with a wound Location: Left posterior heel Onset: POA Aggravating factors: Diabetes mellitus, Mechanical devices related, Positioning, and Pressure Wound etiology: Pressure Associated pain with wound: Yes Relieving factors for wound pain: Positioning Treatments: Current: Vashe cleanse, Medihoney, alginate, ABD, kerlix Remainder unchanged Future Appointments Date Time Provider Department Center 02/11/2024 9:00 AM Darien Strickland PA-C [facility] Mn S Bldg 02/11/2024 3:30 PM Noel Daniels MD [facility] Med C 02/14/2024 6:[address] [facility] ([facility]) [facility] 03/21/2024 11:00 AM Reggie Butler MD [facility] Mn S Bldg 04/10/2024 1:[address] 2 MAIN QB (I-STAT) [facility] Mn Q Bldg 04/10/2024 2:00 PM Marlene Cordero PA-C [facility] Mn S Bldg 05/29/2024 1:00 PM Ruthy Jesus MD [facility] 07/01/2024 4:00 PM Katiana Huang APRN.STABLE HELPER ENDOAV Rej 09/03/2024 2:40 PM Ruddy Gupta MD ENDOAV Rej 09/16/2024 10:45 AM LAB MAIN Q2-1 LBQ2-1 Mn Q Bldg 09/16/2024 11:[address] 2 MAIN QB (I-STAT) [facility] Mn Q Bldg IMPRESSION/RECOMMENDATIONS The patient's age, altered mobility and other co morbidities are likely to impact wound and skin integrity Additional impediments to healing Diabetic: Yes Anticoagulation: Aspirin Antibiotics: No Steroids: No (L89.620) Pressure injury of left heel, unstageable (HCC) (primary encounter diagnosis) Comment: Slight decrease in measurements noted to unstageable pressure injury of the posterior aspect of the left heel with current treatment. Wound remains comprised primarily of eschar which continues to soften, with red, moist tissue to the perimeter of the wound bed. Periwound remains dry and intact with some blanchable erythema. Will plan to continue betadine to the area. DP and PT pulses +2. X-ray obtained at last week's visit negative osteomyelitis or any acute abnormalities. No s/s of infection noted- no periwound increased warmth, no induration, no purulence, no malodor. Appears lesstender on exam. HPI: Patient s/p left tibia fracture with use of walking boot post-operatively, subsequent pressureinjury d/t mechanical device. Patient given OK per orthopedics to leave boot off to aide in wound healing and pressure reduction. Plan: -Monitor for any s/s of infection- notify STABLE HELPER/MD of any pertinent findings -Continue current wound care orders as follows for bacteriostatic properties: Wound Care Order: - Cleanse wound and periwound skin with Vashe and gauze, gently pat dry - Mechanical debridement was performed during visit - To the wound apply Medihoney (thin layer) - Top with calcium alginate (cut to fit) - Cover with ABD and kerlix - Change dressing daily and PRN (R53.81) Physical deconditioning Comment: Patient requires assistance with ADL's and mobility d/t recent left tibia fracture, hydrocephalus. Working with PT and OT. Plan: - Turn and reposition frequently - Frequent weight shifts when seated - Nutritional support as appropriate FOLLOW UP PLAN Weekly as needed SUBJECTIVE REVIEW: Information provided by: Patient and Facility nurse Review of Systems Constitutional: Negative for chills, diaphoresis and fever. HENT: Negative. Respiratory: Negative. Cardiovascular: Negative. Gastrointestinal: Negative. Genitourinary: + urostomy Musculoskeletal: Positive for arthralgias and gait problem. Skin: Positive for wound. Neurological: Positive for weakness (Generalized). Psychiatric/Behavioral: Negative Nutrition DIET: NCS (No Concentrated Sweets) diet, Regular texture, Regular/Thin consistency SUPPLEMENTS: Anuel APPETITE: fair MEDICATION REVIEW Medications listed in Epic during SNF admission may not be current. Refer to facility record Medications Reviewed per facility list done: Yes Allergies reviewed per facility list Prior chart notes reviewed SOCIAL HISTORY Tobacco Use Past: No Current: No OBJECTIVE Physical Exam Vitals and nursing note reviewed. Constitutional: General: She is not in acute distress. Appearance: She is well-groomed and normal weight. She is not ill-appearing or toxic-appearing. Comments: Pleasant middle aged female sitting upright in wheelchair, calm and cooperative. HENT: Head: Normocephalic and atraumatic. Nose: No congestion. Mouth/Throat: Mouth: Mucous membranes are moist. Pharynx: Oropharynx is clear. Cardiovascular: Rate and Rhythm: Normal rate. Pulses: Normal pulses. Pulmonary: Effort: Pulmonary effort is normal. No respiratory distress. Abdominal: General: Abdomen is flat. There is no distension. Palpations: Abdomen is soft. Musculoskeletal: Right lower leg: +1 edema. Left lower leg: +1 edema. Skin: General: Skin is warm and dry. Findings: Wound (See HPI) present. Neurological: Mental Status: She is alert and oriented to person, place, and time. Motor: Weakness present. Gait: Gait abnormal. Psychiatric: Attention and Perception: Attention normal. Mood and Affect: Mood and affect normal. Speech: Speech normal. Behavior: Behavior normal. Behavior is cooperative. WOUND ASSESSMENT Location: Left Posterior Heel Type: pressure injury Stage: Unstageable Exposed structure:None Progress: Stable- slight decrease in measurements Wound measurements (cm): 1.9 x 1.8 x UTD Full thickness: N/A Tunneling/undermining: none Wound tissue color: 10% red, moist, 90% eschar Periwound tissue: dry, intact, blanchable erythema Drainage: none Drainage odor: None ANCILLARY DATA REVIEWED Managed by facility. Counseled on wound prognosis and plan of care, Counseled patient, family or facility staff on woundhealing process. Counseled on treatment options, and Written wound care instructions left in facility. Visit billing based on time: No, visit will not be billed on time? I spent a total of 20 minutes on the date of the service which included preparing to see the patient, [id number] patient care, completing clinical documentation, reviewing separately obtained history, performing a medically appropriate examination, counseling and educating the patient/family/caregiver, and communicating with other HCPs (not separately reported). Joint visit made with Daniel Sandoval LPN Plan of Care discussed with facility nursing staff, patient, and referring provider. Wound care was performed during visit. All documentation from previous visit of 01/31/2024 was copied and pasted, documentation has been reviewed and edited as necessary for today's visit on 02/07/2024. SIGNATURE: Sharan Dominguez APRN.GONZALEZ POLLOCK PATIENT NAME: Chikis Tobar DATE: 02/07/2024 OFFICE #: [phone] PAGER/CELL: [phone] documented in this encounterCleveland [id number] Nurse Note* Jennifer Banerjee RN - 02/06/2024 11:34 AM EDT Images from the original note were not included. [facility]10-23-2024 Nurse Note* Jennifer Banerjee RN - 02/06/2024 11:34 AM EDT Images from the original note were not included. documented in this encounterThe [facility]10-[facility]24 History of Present illness Narrative* Ruddy Gupta MD - 02/06/2024 11:25 AM EDT Images from the original note were not included. [facility] Endocrinology Department Today's Visit Information Reason for Visit: Diabetes Visit Type: Initial Consult Type: Self-referral Consultation Chief Complaint: Other CC Other: Establishing care for type 1 diabetes on insulin pump. Patient is at a SNF for physical therapy. She is likely to be discharged soon. Diabetes History Patient age (years) when first diagnosed with Diabetes: 6 Diabetes Type: DM Type 1 Diabetes Related Complications: Microvascular, Other - Specify Specify Complications: left foot ulcer. Microvascular Complications: NPDR (Non-proliferative Diabetic Retinopathy), Neuropathy Neuropathy Details: Peripheral Related Comorbidities: Hypertension Patient age (years) when Insulin first started: 6 Nutrition/Diet Summary Patient Current Diet: Counts carbs, Other - Specify Specify Diet: High carb diet when in SNF Number of Meals per day: Three Number of Snacks per day/week: Per Day - Specify Number of snacks per day - Specify: 1-2 Exercise Summary Patient exercise routine: Not Exercising/exercise activity limited Blood Glucose (BG) Monitoring Monitoring Frequency: Per day - Specify Daily Monitoring - Specify: CGM Blood Glucose Summary/Pattern Insulin Pump Type: Tandem Tandem Model: t slim X2 CGM Summary Patient Uses Personal CGM: Yes - Specify CGM Other - Specify: Dexcom Summary of Findings - CGM Type: Personal Procedure date (Initial): 01/24/24 Procedure date (End): 02/06/24 CGM recording is adequate for interpretation: Yes Recording Time (%): 100 Total frequency of hypoglycemia: (Comment: 0-2 per week) Hypoglycemia pattern(s): No specific pattern(s) Time spent in hypoglycemia (%): 0.6 Hyperglycemic episodes: Sporadic post-prandial hyperglycemia Time spent in hyperglycemia (%): 25 (Comment: 5% > 250 mg/dl) Average glucose (+/-): 156 Time in range (70-180 mg/dL) (%): 75 Glucose Variability (%): 31 Glucose Management Indicator (%): 7 Summary page of the report will be included in the note/procedure note: Yes (Comment: Nursing note) Current issues with Glycemic Control Primary problem(s) patient has with glycemic control include(s): Fluctuations of glucose levels, Hypoglycemic episodes Frequency of Hypoglycemia: Weekly - Specify Hypoglycemia Weekly Pattern - Specify: 0-2 Hypoglycemia awareness: When hypoglycemic, patient develops symptoms Hypoglycemia symptoms: Neuroglycopenic (Comment: Fatigue, numbness and tingling in face and hands) When hypoglycemic symptoms occurs, blood glucose levels - Specify: 70s mg/dl. Dilated Retinal Exam Dilated Retinal Exam: Current - completed within last 12 months Dilated Retinal Exam month: September Dilated Retinal Exam year: 2023 Dilated Retinal Exam Findings: Outside provider. She reports background retinopathy. Pertinent ROS Patient reports Neuropathic pain: Yes Neuropathic pain details: Numbness, Tingling (Comment: Numbness from mid-trunk since she had her shunt surgery in September,) Patient reports Polyuria: No (Comment: She has a stoma after her surgery for bladder cancer) Patient reports Polydipsia: No Patient reports excess hunger: No Weight loss/gain: Other - Specify Weight loss/gain details - Specify: mild weight loss over the past few weeks. Current Medications 02/06/2024 DIABETES THERAPIES Medication Dosage Pharm Subclass insulin aspart U-100 (NOVOLOG) 100 unit/mL Use via insulin pump Max daily dose 100 units, DX: E10.65 Insulin Analogs - Rapid Acting CARDIOVASCULAR Medication Dosage Pharm Subclass lisinopril (ZESTRIL) 40 mg tablet Take 40 mg by mouth once daily. DAI Inhibitors metoprolol succinate ER (TOPROL XL) 100 mg Take 1 tablet by mouth every 12 hours at 6 am and 6 pm. Beta Blockers Cardiac Selective DIURETICS Medication Dosage Pharm Subclass furosemide (LASIX) 20 mg tablet Take 20 mg by mouth once daily. Diuretic - Loop ANTI-PLATELET THERAPIES Medication Dosage Pharm Subclass aspirin, enteric coated (ADULT LOW DOSE ASPIRIN) 81 mg EC tablet Start ASA 81 mg BID on 10/24 Patient should start on October 25, 2023. Salicylate Analgesics ASPIRIN Medication Dosage Pharm Subclass aspirin, enteric coated (ADULT LOW DOSE ASPIRIN) 81 mg EC tablet Start ASA 81 mg BID on 10/24 Patient should start on October 25, 2023. Salicylate Analgesics OTHER Medication Dosage Pharm Subclass acetaminophen (TYLENOL) 325 mg tablet 2 tablets by ORAL/FEEDING TUBE route every 6 hours as needed for pain. Analgesic or Antipyretic Non-Opioid acetaminophen (TYLENOL) 650 mg suppository 650 mg by RECTAL route every 4 hours as needed for pain or fever (specify temp.). Analgesic or Antipyretic Non-Opioid baclofen 5 mg tablet Take 10 mg by mouth two times a day. Skeletal Muscle Relaxant - Central MuscleRelaxants cyanocobalamin (VITAMIN B-12) 1,000 mcg tab Take 1,000 mcg by mouth. Vitamins - B-12, Cyanocobalamin and derivatives dextrose 40 % gel Take 15 g by mouth as needed. Agents to treat Hypoglycemia (Hyperglycemics) DULCOLAX, BISACODYL, RECTAL by RECTAL route once daily as needed. Laxative - Stimulant glucagon 3 mg/actuation nasal spray (BAQSIMI) Agents to treat Hypoglycemia (Hyperglycemics) ondansetron orally disintegrating (ZOFRAN ODT) 4 mg disintegrating tablet Take 4 mg by mouth every 6 hours as needed. Antiemetic - Selective Serotonin 5-HT3 Antagonists oxyCODONE ir (OXYIR) 5 mg capsule Take 5 mg by mouth every 4 hours as needed for pain. Analgesic Opioid Agonists posaconazole DR (NOXAFIL) 100 mg tablet Take 3 tablets by mouth once daily. Antifungal - Triazoles senna-docusate (SENNA-S) 8.6-50 mg per tablet 1 tablet by ORAL/FEEDING TUBE route two times a day. Laxative - Stimulant and Surfactant Combinations LABS Relevant labs are available on Care Everywhere. Creatinine (mg/dL) Date Value 12/21/2023 0.56 05/25/2021 1.01 Creatinine (POCT) (mg/dL) Date Value 04/25/2022 0.50 Hemoglobin A1C (%) Date Value 04/13/2021 8.1 Hemoglobin A1C (POCT) (%) Date Value 02/06/2024 6.6 No results found for: CHOL , HDL , LDL , TG PAST MEDICAL HISTORY Diagnosis Date Asthma 02/16/2021 Bladder cancer (HCC) 02/2021 urothelial carcinoma Diabetes mellitus type 1 (HCC) 04/13/2021 diagnosed at age 6 Fracture of tibia 09/2023 HTN (hypertension) 02/16/2021 Meningitis 2022 Patient reported shunt placement (with subsequent removal and re-placement in September,) Neoplasm of bladder 02/16/2021 Obesity 02/16/2021 Palpitations [...] Never Smokeless tobacco: Never Vaping Use Vaping status: Never Used Substance Use Topics Alcohol use: Not Currently Drug use: Never FAMILY HISTORY Problem Relation Age of Onset Anesthesia Problems No Family History Colon Cancer No Family History Aneurysm No Family History ALLERGIES Allergen Reactions Demeral [Meperidine] GI Upset Nausea, pt states room spins Flexeril [Cyclobenz* Hives Orphenadrine Other: See Comments, Hives, Rash Versed [Midazolam] Mental Status Change PHYSICAL EXAM: Vital Signs BP 138/72 Pulse 74 Wt 67.1 kg (148 lb) BMI 24.63 kg/m Physical Exam Constitutional: Appearance: She is not ill-appearing or diaphoretic. Eyes: Conjunctiva/sclera: Conjunctivae normal. Neck: Thyroid: No thyromegaly or thyroid tenderness. Vascular: No carotid bruit. Cardiovascular: Rate and Rhythm: Normal rate and regular rhythm. Heart sounds: No murmur heard. No gallop. Pulmonary: Effort: Pulmonary effort is normal. Breath sounds: Normal breath sounds. Abdominal: General: There is no distension. Palpations: Abdomen is soft. There is no mass. Musculoskeletal: Right lower le+ Pitting Edema present. Left lower le+ Pitting Edema present. Feet: Comments: Foot exam is deferred. She has dressing over the right foot and has compressive stocking on the right. Lymphadenopathy: Cervical: No cervical adenopathy. Neurological: Mental Status: She is alert. DATA Diagnostic tests reviewed for today's visit: Most recent labs Impression and Plan Diabetes type (Diagnosis): DM Type 1 Adequacy of Glycemic Control: Adequate, With hypoglycemia With Hypoglycemia details: Without known nocturnal hypoglycemia, Reduced awareness of hypoglycemia,Other - Specify With Hypoglycemia - Specify: Time spent in hypoglycemia is acceptable, very low. Patient advised to contact the office if blood sugar readings are consistently high or if they are having frequent hypoglycemia: Yes Recommended Diet: Carb counting Recommended Glucose Monitoring: Before meals and bedtime (AC and HS), As needed for hypoglycemia, Other-Specify Glucose Monitoring - Specify: Continue with CGM Glucose Monitoring before driving: Recommended and discussed today Diabetic Therapy Medication Changes: One (1) change made today - Specify Single DM Medication Change Today: Change basal rate to 0.85 unit per hour, all day. Additional DM Medication Information: Patient is comfortable using her insulin pump, she indicated no need for diabetes education consult. Higher dosage of bolus insulin is contributed by high carb diet when in SNF. Average daily carbs is324 grams. She plans on improving carb intake after discharge. Lipid Status: Other - Specify Lipid Status - Specify: Unknown status. Obtain labs. Additional Lipid Medication Information: Statin therapy was discussed. The medication, the benefit,the side effects and follow up were discussed in details. Patient is agreeable to start a statin. Final decision is to be made based on labs. Blood Pressure Status: Primary hypertension Blood Pressure Goal - (<) mmHg : 140/90 Blood Pressure Control Status: Controlled Blood Pressure Medication Changes: No changes made today Weight Status: Normal Complications: Microvascular, Other - Specify Complications - Specify: left foot ulcer. Microvascular Complications: NPDR (Non-proliferative Diabetic Retinopathy), Neuropathy Neuropathy Details: Peripheral Related Comorbidities: Hypertension Other Conditions Addressed Today: * Elevated alk phos. Likely, this is contributed by recent history of fracture/elevated bone fraction. Obtain alk phos isoenzyme. * Recent history of a fracture of left tibia. Patient did not want to address the possibility of osteoporosis at this time. Patient expressed understanding and agreed with plan. Patient to continue to follow up with her PCP and with other consultants regarding her other medical problems. Next visit in 3 months, with Endocrinology Nurse Practitioner and in 6 months with me . LOWELL Gupta MD February 06, 2024 documented in this encounterThe [facility]10-22-2024 Telephone encounter Note * Telephone Encounter - Kacie Peterson HUC - 02/05/2024 9:42 AM EDT Jamie Mccarty MD [place], [facility] July Can you call pt and see if she can get morning blood work this week Wd 02/05 around 8 AM. This is a posaconazole level If she takes her posaconazole normally in the morning she should hold off on taking the posaconazole until after the blood work is done. She has appt with NSGY at 8:30 AM that day thanks [facility]10-22-2024 Miscellaneous Notes* Telephone Encounter - Kacie Peterson HUC - 02/05/2024 9:42 AM EDT Jamie Mccarty MD [place], [facility] July Can you call pt and see if she can get morning blood work this week Wd 02/05 around 8 AM. This is a posaconazole level If she takes her posaconazole normally in the morning she should hold off on taking the posaconazole until after the blood work is done. She has appt with NSGY at 8:30 AM that day thanks documented in this encounterThe [facility]10-17-2024 History of Present illness Narrative* Sharan Dominguez APRN.STABLE HELPER - 01/31/2024 1:52 PM EDT Images from the original note were not included. [facility] PRO[facility] - FOLLOW UP VISIT PATIENT NAME: Chikis Tobar SERVICE DATE: 01/31/[address] OF SERVICE FOR THIS VISIT: [facility] (POS [facility]), Facility Name: [facility] Level of Care: Skilled Asked to see patient at the request of and in collaboration with Dr. Parisi for my opinion regardingpressure injury of the left heel. Requested to see patient today for wound assessment and treatment evaluation CHIEF COMPLAINT: Follow up wound care evaluation of pressure injury of the left heel. INTERVAL HISTORY Information provided by: Chart review and Patient 58 year old y/o female who presents with a wound Location: Left posterior heel Onset: POA Aggravating factors: Diabetes mellitus, Mechanical devices related, Positioning, and Pressure Wound etiology: Pressure Associated pain with wound: Yes Relieving factors for wound pain: Positioning Treatments: Current: Betadine, ABD, kerlix Remainder unchanged Future Appointments Date Time Provider Department Center 02/06/2024 11:00 AM Ruddy Gupta MD ENDOAV Rej 02/11/2024 3:30 PM Noel Daniels MD [facility] Med C 02/14/2024 6:[address] [facility] (I-[facility]) [facility] 03/21/2024 11:00 AM Reggie Butler MD N[facility] Mn S Bldg 04/10/2024 1:[address] 2 MAIN QB (I-STAT) [facility] Mn Q Bldg 04/10/2024 2:00 PM Marlene Cordero PA-C N[facility] Mn S Bldg 09/16/2024 10:45 AM LAB MAIN Q2-1 LBQ2-1 Mn Q Bldg 09/16/2024 11:[address] 2 MAIN QB (I-STAT) [facility]MN Mn Q Bldg IMPRESSION/RECOMMENDATIONS The patient's age, altered mobility and other co morbidities are likely to impact wound and skin integrity Additional impediments to healing Diabetic: Yes Anticoagulation: Aspirin Antibiotics: No Steroids: Prednisone (L89.620) Pressure injury of left heel, unstageable ([facility]) (primary encounter diagnosis) Comment: No change in measurements noted to unstageable pressure injury of the posterior aspect of the left heel. However, improvement noted to tissue quality, with some red, moist tissue now present. Previously firm and dry eschar is now softening- will plan to initiate Medihoney + alginate for autolytic debridement. Periwound remains dry and intact with some blanchable erythema. Will plan to continue betadine to the area. DP and PT pulses +2. Remains somewhat tender on exam, with patient c/o increased pain at times. Will plan to obtain x-ray to rule out osteomyelitis or any acute abnormalities. No s/s of infection noted- no periwound increased warmth, no induration, no purulence, no malodor. HPI: Patient s/p left tibia fracture with use of walking boot post-operatively, subsequent pressureinjury d/t mechanical device. Patient given OK per orthopedics to leave boot off to aide in wound healing and pressure reduction. Plan: -Obtain x-ray of the left heel d/t pain, rule out osteomyelitis -Monitor for any s/s of infection- notify STABLE HELPER/MD of any pertinent findings -D/C previous wound care order -Updated wound care orders as follows for bacteriostatic properties: Wound Care Order: - Cleanse wound and periwound skin with Vashe and gauze, gently pat dry - Mechanical debridement was performed during visit - To the wound apply Medihoney (thin layer) - Top with calcium alginate (cut to fit) - Cover with ABD and kerlix - Change dressing daily and PRN (R53.81) Physical deconditioning Comment: Patient requires assistance with ADL's and mobility d/t recent left tibia fracture, hydrocephalus. Working with PT and OT. Plan: - Turn and reposition frequently - Frequent weight shifts when seated - Nutritional support as appropriate FOLLOW UP PLAN Weekly as needed SUBJECTIVE REVIEW: Information provided by: Patient and Facility nurse Review of Systems Constitutional: Negative for chills, diaphoresis and fever. HENT: Negative. Respiratory: Negative. Cardiovascular: Negative. Gastrointestinal: Negative. Genitourinary: + urostomy Musculoskeletal: Positive for arthralgias and gait problem. Skin: Positive for wound. Neurological: Positive for weakness (Generalized). Psychiatric/Behavioral: Negative Nutrition DIET: NCS (No Concentrated Sweets) diet, Regular texture, Regular/Thin consistency SUPPLEMENTS: Anuel APPETITE: fair MEDICATION REVIEW Medications listed in Epic during SNF admission may not be current. Refer to facility record Medications Reviewed per facility list done: Yes Allergies reviewed per facility list Prior chart notes reviewed SOCIAL HISTORY Tobacco Use Past: No Current: No OBJECTIVE Physical Exam Vitals and nursing note reviewed. Constitutional: General: She is not in acute distress. Appearance: She is well-groomed and normal weight. She is not ill-appearing or toxic-appearing. Comments: Pleasant middle aged female sitting upright in wheelchair, calm and cooperative. HENT: Head: Normocephalic and atraumatic. Nose: No congestion. Mouth/Throat: Mouth: Mucous membranes are moist. Pharynx: Oropharynx is clear. Cardiovascular: Rate and Rhythm: Normal rate. Pulses: Normal pulses. Pulmonary: Effort: Pulmonary effort is normal. No respiratory distress. Abdominal: General: Abdomen is flat. There is no distension. Palpations: Abdomen is soft. Musculoskeletal: General: Tenderness (LLE). Right lower leg: +1 edema. Left lower leg: +1 edema. Skin: General: Skin is warm and dry. Findings: Wound (See HPI) present. Neurological: Mental Status: She is alert and oriented to person, place, and time. Motor: Weakness present. Gait: Gait abnormal. Psychiatric: Attention and Perception: Attention normal. Mood and Affect: Mood and affect normal. Speech: Speech normal. Behavior: Behavior normal. Behavior is cooperative. WOUND ASSESSMENT Location: Left Posterior Heel Type: pressure injury Stage: Unstageable Exposed structure:None Progress: Stable- No change in measurements, improved tissue quality Wound measurements (cm): 2 x 1.8 x UTD Full thickness: N/A Tunneling/undermining: none Wound tissue color: 10% red, moist, 90% eschar Periwound tissue: dry, intact, blanchable erythema Drainage: none Drainage odor: None ANCILLARY DATA REVIEWED Managed by facility. Counseled on wound prognosis and plan of care, Counseled patient, family or facility staff on woundhealing process. Counseled on treatment options, and Written wound care instructions left in facility. Visit billing based on time: No, visit will not be billed on time? I spent a total of 30 minutes on the date of the service which included preparing to see the patient, [id number] patient care, completing clinical documentation, reviewing separately obtained history, performing a medically appropriate examination, counseling and educating the patient/family/caregiver, and communicating with other HCPs (not separately reported). Joint visit made with Daniel Sandoval LPN Plan of Care discussed with facility nursing staff, patient, and referring provider. Wound care was performed during visit. All documentation from previous visit of 01/24/2024 was copied and pasted, documentation has been reviewed and edited as necessary for today's visit on 01/31/2024. SIGNATURE: Sharan Dominguez APRN.STABLE HELPER,CWOCN PATIENT NAME: Chikis Tobar DATE: 01/31/2024 OFFICE #: [phone] PAGER/CELL: [phone] documented in this encounterThe [facility]10-[facility] History of Present illness Narrative* Dilcia Carl APRN.CNP - 01/29/2024 11:56 AM EDT Images from the original note were not included. Connected Care Unit Progress Note Patient Name: Chikis Tobar Patient Facility: [facility] Admit Date 11/09/23 Level of Care: Skilled SNF Attending: Amelia Parisi D.O. Service Date: 01/29/2024 Code Status: Chief Complaint: Evaluation regarding hydrocephalus, meningitis ASSESSMENT AND PLAN ASSESSMENT/PLAN: 1. 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 denies SHANNON, dizziness or double/blurred vision at this time 8: No change in condition. Pt. participating in PT/OT, eating and drinking appropriately. No bowel or bladder issues. afebrile, non-toxic appearing. Pt.c/o BLE muscle cramps, Mag 1.9, muscle relaxer changed to methocarbamol 750mg po QID. Pt. has f/u with MD today to possibly hold anti-fungal due to muscle spasms that may be 2/2 anti-fungal. hemodynamically stable. No acute issues at this time. 11/19: No change in condition. Pt. participating in PT/OT as tolerated with BLE muscle spasms. Pt. states there is slight improvement with change in muscle relaxer and the muscle spasms. will attempt medrol dose pack therapy at this time and monitor blood glucose closely. eating and drinking appropriately. No bowel or bladder issues. Labs reviewed, hemodynamically stable. No acute issues at this time. 11/21: Hemodynamically stable, eating and drinking appropriately. Labs reviewed. participating in pt/ot, afebrile, non-toxic appearing. pt. refusing medrol dose pack at this time, pt. wants to wait onemore week of cessation of anti-fungal. no bowel or bladder issues at this time. No acute issues. 11/28: No change in condition. Pt. participating in PT/OT, eating and drinking appropriately. No bowel or bladder issues. afebrile, non-toxic appearing. pt. c/o continued BLE muscle spasms with pain, current regimen non-effective. will start medrol dose pack at this time, hemodynamically stable. No acute issues at this time. 12/05: Hemodynamically stable, eating and drinking appropriately. participating in pt/ot, denies pain at this time, afebrile, non-toxic appearing. pt. had f/u with neurosurgery with recommendations tochange muscle relaxer and f/u with neuro in [address] scan brain. no bowel or bladder issues at this time. No acute issues. 12/10: No change in condition. Pt. participating in PT/OT, eating and drinking appropriately. No bowel or bladder issues. afebrile, non-toxic appearing, Denies Cp, SOB, heart palpitations or dizziness. hemodynamically stable. No acute issues at this time. 12/12: Hemodynamically stable, eating and drinking appropriately. participating in pt/ot, denies pain at this time, afebrile, non-toxic appearing. pt. c/o continues BLE muscle spasms with pain, will start a prednisone taper at this time. no bowel or bladder issues at this time. No acute issues. 12/17: eating and drinking appropriately. Labs reviewed, BUN 39, Cr 0.6, GFR 103, CBC without leukocytosis. participating in pt/ot, pain improved with steroid taper, afebrile, non-toxic appearing. no bowel or bladder issues at this time. No acute issues. 12/19: Hemodynamically stable, eating and drinking appropriately. participating in pt/ot, pt. states the pain is improving with steroid use. Denies Cp, SOB, heart palpitations or dizziness. afebrile, non-toxic appearing. no bowel or bladder issues at this time. No acute issues. 12/24: No change in condition. Pt. participating in PT/OT with sight improvement, eating and drinking appropriately. No bowel or bladder issues. Labs reviewed, BUN 23, Cr 0.6, GFR 103, CBC without leukocytosis. Pt. denies SHANNON, dizziness or double/blurred vision. hemodynamically stable. No acute issues at this time. 12/26: Hemodynamically stable, eating and drinking appropriately. participating in PT/OT as tolerated with improvement. no bowel or bladder issues at this time. Pain improving to BLE. No acute issues. 01/02: No change in condition. Pt. participating in PT/OT with improvement, pain controlled at this time. eating and drinking appropriately. No bowel or bladder issues. hemodynamically stable. No acute issues at this time. 01/07: Hemodynamically stable, eating and drinking appropriately. Labs reviewed, BUN 21, Cr 0.5, [id number]. Non-pitting BLE edema present, marcie hose non-effective, lasix 20mg po daily x 7 days started, Denies Cp, SOB, heart palpitations or dizziness, no hypoxia reported. Denies SHANNON, dizziness or double/blurred vision. no bowel or bladder issues at this time. No acute issues. 01/09: No change in condition. Pt. participating in PT/OT, eating and drinking appropriately. No bowel or bladder issues. Labs reviewed, afebrile, non-toxic appearing, pt. has f/u today with imaging. BLE edema improved with lasix therapy., Denies Cp, SOB, heart palpitations or dizziness. hemodynamically stable. No acute issues at this time. 01/14: Hemodynamically stable, eating and drinking appropriately. participating in pt/ot, denies pain at this time, afebrile, non-toxic appearing. Lasix therapy completed today, BLE with minimal edema, Denies Cp, SOB, heart palpitations or dizziness. Pt. is s/p nerve block with some relief of pain, recommended to f/u in 4 weeks. no bowel or bladder issues at this time. No acute issues. 01/16: No change in condition. Pt. participating in PT/OT, eating and drinking appropriately. No bowel or bladder issues. afebrile, non-toxic appearing, pain improved. BLE with non-pitting edema, lasix 20mg po M/W/F with K replacement started. Denies Cp, SOB, heart palpitations or dizziness. hemodynamically stable. No acute issues at this time. 01/23: Hemodynamically stable, eating and drinking appropriately. participating in pt/ot, denies pain at this time, afebrile, non-toxic appearing. Discharge held at this time. Denies Cp, SOB, heart palpitations or dizziness. no bowel or bladder issues at this time. No acute issues. 01/28: No change in condition. Pt. participating in PT/OT, eating and drinking appropriately. No bowel or bladder issues. afebrile, non-toxic appearing. BLE with non-pitting edema, lasix changed to daily vs. every other day, Denies Cp, SOB, heart palpitations or dizziness, no hypoxia reported. hemodynamically stable. No acute issues at this time. - lasix 20mg po daily for edema with K supplementation - prednisone taper, 60, 50, 40, 30, 20, 10, 5 then done - continue ASA 81mg po BID for DVT prophylaxis - continue pain control and muscle relaxer - continue posaconazole - continue to monitor CBC/CMP - continue to monitor Dilcia Carl Appointments for Next 60 Days Date Time Provider Location Dept Phone 01/31/2024 9:30 AM SHARAN DOMINGUEZ [facility] [phone] 02/06/2024 11:00 AM RUDDY GUPTA [facility] [phone] 02/11/2024 3:30 PM NOEL DANIELS [facility] [phone] 03/21/2024 11:00 AM REGGIE BUTLER S Bldg [phone] HPI: (Per discharge summary) 58-year-old female with PMHx signficant for T1DM cb/ DKA, urothelial carcinoma of the bladder s/p radical cystectomy and ileal conduit c/b SBO (Dec 2021), HTN, chronic sinusitis, asthma, persistent encephalopathy and hydrocephalus. 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 She was followed by ID at [facility] and was on posaconazole. She is s/p shunt externalization at [facility] (06/27/23) during abdominal surgery for SBO and eventual VPS explantation (07/10/23). She was o riginally scheduled for shunt reinternalization with Dr. Oconnor on 11/20/23. She fell due to leg spasms and presented to OSH ED and admitted on 10/07/23. Found to have L tibial fx s/p intramedullary nailDr. Fannyaverymanpreetaleida at [facility] (10/08/23). She was then [place] [facility] [place]. She is s/p VPS reimplantation by Dr. Oconnor and Dr. Evans on 10/14. Intraoperative CSF cultures without growth. Plan to continue posaconazole at least through end of this year. She isto start asa bid on 10/24 for dvt ppx. Seen by WOCN for wounds as below - Coccyx : healed. -Left posterior heel: POA -Left anterior foot : Deep Tissue Pressure Injury, acquired While in the ARU, pt received physical therapy for range of motion, transfer training, endurance/ balance, fall prevention, and gait training with appropriate assistive devices, occupational therapy for activity of daily living/equipment/ functional transfer evaluation and training, and speech thera py for language evaluation and speech re-education. Team conferences were held to monitor progress and tailor program to patients needs. Patient had appropriate pain management, bowel management, sleep management, GI and DVT prophylaxis. Pt was stable throughout ARU course without major medical comp lication. Pt participated in all therapies and although with significant gradual improvement, would benefit from continuing skilled therapies and nursing at SNF prior to returning home. 10/23 stop robaxin, add zanaflex 4mg at bedtime and 2mg tid prn 10/27 zanaflex scheduled qid 10/28 d/w IM get f/u head CT d/t unresolved spasticity with pain 10/30 Shunt adjusted by Neurosurg from to 7 11/04 add gabapentin 300mg at bedtime Interval HPI: Pt. is alert, calm and cooperative during ROS and physical exam. There are no concerns for bowel issues. ileal conduit without complications, appropriate output without sediment or hematuria. Pt. is eating and drinking fluids appropriately. walker boot in place, denies pain at this time. pt. denies SHANNON, dizziness or double/blurred vision at this time. All labs and vital signs were reviewed. Pt. is participating in PT/OT without complications. Per nursing staff there are no acute changes to be addressed at this time. 11/15: No change in condition. Pt. participating in PT/OT, eating and drinking appropriately. No bowel or bladder issues. afebrile, non-toxic appearing. Pt.c/o BLE muscle cramps, Mag 1.9, muscle relaxer changed to methocarbamol 750mg po QID. Pt. has f/u with MD today to possibly hold anti-fungal due to muscle spasms that may be 2/2 anti-fungal. hemodynamically stable. No acute issues at this time. 11/19: No change in condition. Pt. participating in PT/OT as tolerated with BLE muscle spasms. Pt. states there is slight improvement with change in muscle relaxer and the muscle spasms. will attempt medrol dose pack therapy at this time and monitor blood glucose closely. eating and drinking appropriately. No bowel or bladder issues. Labs reviewed, hemodynamically stable. No acute issues at this time. 11/21: Hemodynamically stable, eating and drinking appropriately. Labs reviewed. participating in pt/ot, afebrile, non-toxic appearing. pt. refusing medrol dose pack at this time, pt. wants to wait onemore week of cessation of anti-fungal. no bowel or bladder issues at this time. No acute issues. 11/28: No change in condition. Pt. participating in PT/OT, eating and drinking appropriately. No bowel or bladder issues. afebrile, non-toxic appearing. pt. c/o continued BLE muscle spasms with pain, current regimen non-effective. will start medrol dose pack at this time, hemodynamically stable. No acute issues at this time. 12/05: Hemodynamically stable, eating and drinking appropriately. participating in pt/ot, denies pain at this time, afebrile, non-toxic appearing. pt. had f/u with neurosurgery with recommendations tochange muscle relaxer and f/u with neuro in [address] scan brain. no bowel or bladder issues at this time. No acute issues. 12/10: No change in condition. Pt. participating in PT/OT, eating and drinking appropriately. No bowel or bladder issues. afebrile, non-toxic appearing, Denies Cp, SOB, heart palpitations or dizziness. hemodynamically stable. No acute issues at this time. 12/12: Hemodynamically stable, eating and drinking appropriately. participating in pt/ot, denies pain at this time, afebrile, non-toxic appearing. pt. c/o continues BLE muscle spasms with pain, will start a prednisone taper at this time. no bowel or bladder issues at this time. No acute issues. 12/17: BP soft without dizziness, currently taking metoprolol BID, was taking once daily at home. Metoprolol decreased to once daily in am vs. BID. eating and drinking appropriately. Labs reviewed, BUN39, Cr 0.6, GFR 103, CBC without leukocytosis. participating in pt/ot, pain improved with steroid taper, afebrile, non-toxic appearing. no bowel or bladder issues at this time. No acute issues. 12/19: Hemodynamically stable, eating and drinking appropriately. participating in pt/ot, pt. states the pain is improving with steroid use. Denies Cp, SOB, heart palpitations or dizziness. afebrile, non-toxic appearing. no bowel or bladder issues at this time. No acute issues. 12/24: No change in condition. Pt. participating in PT/OT with sight improvement, eating and drinking appropriately. No bowel or bladder issues. Labs reviewed, BUN 23, Cr 0.6, GFR 103, CBC without leukocytosis. Pt. denies SHANNON, dizziness or double/blurred vision. hemodynamically stable. No acute issues at this time. 12/26: Hemodynamically stable, eating and drinking appropriately. participating in PT/OT as tolerated with improvement. no bowel or bladder issues at this time. Pain improving to BLE. No acute issues. 01/02: No change in condition. Pt. participating in PT/OT with improvement, pain controlled at this time. eating and drinking appropriately. No bowel or bladder issues. hemodynamically stable. No acute issues at this time. 01/07: Hemodynamically stable, eating and drinking appropriately. Labs reviewed, BUN 21, Cr 0.5, [id number]. Non-pitting BLE edema present, marcie hose non-effective, lasix 20mg po daily x 7 days started, Denies Cp, SOB, heart palpitations or dizziness, no hypoxia reported. Denies SHANNON, dizziness or double/blurred vision. no bowel or bladder issues at this time. No acute issues. 01/09: No change in condition. Pt. participating in PT/OT, eating and drinking appropriately. No bowel or bladder issues. Labs reviewed, afebrile, non-toxic appearing, pt. has f/u today with imaging. BLE edema improved with lasix therapy., Denies Cp, SOB, heart palpitations or dizziness. hemodynamically stable. No acute issues at this time. 01/14: Hemodynamically stable, eating and drinking appropriately. participating in pt/ot, denies pain at this time, afebrile, non-toxic appearing. Lasix therapy completed today, BLE with minimal edema, Denies Cp, SOB, heart palpitations or dizziness. Pt. is s/p nerve block with some relief of pain, recommended to f/u in 4 weeks. no bowel or bladder issues at this time. No acute issues. 01/16: No change in condition. Pt. participating in PT/OT, eating and drinking appropriately. No bowel or bladder issues. afebrile, non-toxic appearing, pain improved. BLE with non-pitting edema, lasix 20mg po // with K replacement started. Denies Cp, SOB, heart palpitations or dizziness. hemodynamically stable. No acute issues at this time. 01/23: Hemodynamically stable, eating and drinking appropriately. participating in pt/ot, denies pain at this time, afebrile, non-toxic appearing. Discharge held at this time. Denies Cp, SOB, heart palpitations or dizziness. no bowel or bladder issues at this time. No acute issues. 01/28: No change in condition. Pt. participating in PT/OT, eating and drinking appropriately. No bowel or bladder issues. afebrile, non-toxic appearing. BLE with non-pitting edema, lasix changed to daily vs. every other day, Denies Cp, SOB, heart palpitations or dizziness, no hypoxia reported. hemodynamically stable. No acute issues at this time. PAST MEDICAL HISTORY Diagnosis Date Asthma 02/16/2021 Bladder cancer (HCC) 02/2021 urothelial carcinoma Diabetes mellitus type 1 (HCC) 04/13/2021 diagnosed at age 6 HTN (hypertension) 02/16/2021 Neoplasm of bladder 02/16/2021 Obesity 02/16/2021 Palpitations 02/16/2021 SUBJECTIVE: Review of Systems Constitutional: Positive for activity change and fatigue. Negative for fever. Respiratory: Negative. Cardiovascular: Positive for leg swelling. Gastrointestinal: Negative. Musculoskeletal: Positive for arthralgias. Neurological: Positive for weakness. Psychiatric/Behavioral: Negative. No reports of falls/injuries, changes in cognition/behaviors, or any uncontrolled pain exacerbations. Medications: Medications listed in Epic during SNF admission may not be current. Refer to facility record. Patient records, current medications, most recent labs, family/social history (unchanged) Reviewed.Refer to facility records. OBJECTIVE: Labs/diagnostics: reviewed Physical Exam: Physical Exam Constitutional: General: She is not in acute distress. Appearance: She is not toxic-appearing. HENT: Mouth/Throat: Mouth: Mucous membranes are moist. Pharynx: Oropharynx is clear. Eyes: Conjunctiva/sclera: Conjunctivae normal. Cardiovascular: Rate and Rhythm: Normal rate. Pulses: Normal pulses. Heart sounds: Normal heart sounds. Pulmonary: Effort: Pulmonary effort is normal. Breath sounds: Normal breath sounds. Abdominal: General: Bowel sounds are normal. Palpations: Abdomen is soft. Musculoskeletal: Right lower leg: Edema present. Left lower leg: Edema present. Skin: General: Skin is warm and dry. Capillary Refill: Capillary refill takes less than 2 seconds. Neurological: Mental Status: She is alert. Mental status is at baseline. Motor: Weakness present. Psychiatric: Mood and Affect: Mood normal. Behavior: Behavior normal. Some elements from the note on 01/24/24 have not changed and have been copied from that note. Any changes in condition have been addressed and charted accordingly. POC discussed with appropriate parties and nursing staff. Electronically signed by Dilcia Carl APRN.STABLE HELPER documented in this encounterThe [facility]10-10-[facility] History of Present illness Narrative* Sharan Dominguez APRN.MARIS - 01/24/2024 5:25 PM EDT Images from the original note were not included. [facility] PROVIDER PROGRAM - FOLLOW UP VISIT PATIENT NAME: Chikis Tobar SERVICE DATE: 01/24/[address] OF SERVICE FOR THIS VISIT: [facility] (POS [facility] Facility Name: [facility] Level of Care: Skilled Asked to see patient at the request of and in collaboration with Dr. Parisi for my opinion regardingpressure injury of the left heel. Requested to see patient today for wound assessment and treatment evaluation CHIEF COMPLAINT: Follow up wound care evaluation of pressure injury of the left heel. INTERVAL HISTORY Information provided by: Chart review and Patient 58 year old y/o female who presents with a wound Location: Left posterior heel Onset: POA Aggravating factors: Diabetes mellitus, Mechanical devices related, Positioning, and Pressure Wound etiology: Pressure Associated pain with wound: Yes Relieving factors for wound pain: Positioning Treatments: Current: Betadine, ABD, kerlix Remainder unchanged Future Appointments Date Time Provider Department Center 02/06/2024 11:00 AM Ruddy Gupta MD [facility] 03/21/2024 11:00 AM Reggie Butler MD [facility] Mn S Bldg 04/10/2024 1:[address] 2 MAIN QB (I-STAT) [facility] Mn Q Bldg 04/10/2024 2:00 PM Marlene Cordero PA-C [facility] Mn S Bldg 09/16/2024 10:45 AM LAB MAIN Q2-1 LBQ2-1 Mn Q Bldg 09/16/2024 11:[address] 2 MAIN QB (I-STAT) [facility] Mn Q Bldg IMPRESSION/RECOMMENDATIONS The patient's age, altered mobility and other co morbidities are likely to impact wound and skin integrity Additional impediments to healing Diabetic: Yes Anticoagulation: Aspirin Antibiotics: No Steroids: Prednisone (L89.620) Pressure injury of left heel, unstageable ([facility]) (primary encounter diagnosis) Comment: Unstageable pressure injury of the posterior aspect of the left heel with decreased measurements at today's visit. Wound remains comprised of dry, firm eschar without lifting or drainage noted. Periwound remains dry and intact with some blanchable erythema. Will plan to continue betadine to the area. DP and PT pulses +2. Remains somewhat tender on exam. HPI: Patient s/p left tibia fracture with use of walking boot post-operatively, subsequent pressureinjury d/t mechanical device. Patient given OK per orthopedics to leave boot off to aide in wound healing and pressure reduction. Plan: -Monitor for any s/s of infection- notify STABLE HELPER/MD of any pertinent findings -Wound care orders as follows for bacteriostatic properties: Wound Care Order: - Cleanse wound and periwound skin with normal saline and gauze, gently pat dry. - Apply betadine liberally to wound and periwound - Cover with ABD and kerlix - Change dressing daily and PRN. (R53.81) Physical deconditioning Comment: Patient requires assistance with ADL's and mobility d/t recent left tibia fracture, hydrocephalus. Working with PT and OT. Plan: - Turn and reposition frequently - Frequent weight shifts when seated - Nutritional support as appropriate FOLLOW UP PLAN Weekly as needed SUBJECTIVE REVIEW: Information provided by: Patient and Facility nurse Review of Systems Constitutional: Negative for chills, diaphoresis and fever. HENT: Negative. Respiratory: Negative. Cardiovascular: Negative. Gastrointestinal: Negative. Genitourinary: + urostomy Musculoskeletal: Positive for arthralgias and gait problem. Skin: Positive for wound. Neurological: Positive for weakness (Generalized). Psychiatric/Behavioral: Negative Nutrition DIET: NCS (No Concentrated Sweets) diet, Regular texture, Regular/Thin consistency SUPPLEMENTS: Anuel APPETITE: fair MEDICATION REVIEW Medications listed in Epic during SNF admission may not be current. Refer to facility record Medications Reviewed per facility list done: Yes Allergies reviewed per facility list Prior chart notes reviewed SOCIAL HISTORY Tobacco Use Past: No Current: No OBJECTIVE Physical Exam Vitals and nursing note reviewed. Constitutional: General: She is not in acute distress. Appearance: She is well-groomed and normal weight. She is not ill-appearing or toxic-appearing. Comments: Pleasant middle aged female sitting upright in wheelchair, calm and cooperative. HENT: Head: Normocephalic and atraumatic. Nose: No congestion. Mouth/Throat: Mouth: Mucous membranes are moist. Pharynx: Oropharynx is clear. Cardiovascular: Rate and Rhythm: Normal rate. Pulses: Normal pulses. Pulmonary: Effort: Pulmonary effort is normal. No respiratory distress. Abdominal: General: Abdomen is flat. There is no distension. Palpations: Abdomen is soft. Musculoskeletal: General: Tenderness (LLE). Right lower leg: +1 edema. Left lower leg: +1 edema. Skin: General: Skin is warm and dry. Findings: Wound (See HPI) present. Neurological: Mental Status: She is alert and oriented to person, place, and time. Motor: Weakness present. Gait: Gait abnormal. Psychiatric: Attention and Perception: Attention normal. Mood and Affect: Mood and affect normal. Speech: Speech normal. Behavior: Behavior normal. Behavior is cooperative. WOUND ASSESSMENT Location: Left Posterior Heel Type: pressure injury Stage: Unstageable Exposed structure:None Progress: Stable- decreased measurements Wound measurements (cm): 2 x 1.8 x UTD Full thickness: N/A Tunneling/undermining: none Wound tissue color: 100% firm, dry eschar Periwound tissue: dry, intact, blanchable erythema Drainage: none Drainage odor: None ANCILLARY DATA REVIEWED Managed by facility. Counseled on wound prognosis and plan of care, Counseled patient, family or facility staff on woundhealing process. Counseled on treatment options, and Written wound care instructions left in facility. Visit billing based on time: No, visit will not be billed on time? I spent a total of 20 minutes on the date of the service which included preparing to see the patient, [id number] patient care, completing clinical documentation, reviewing separately obtained history, performing a medically appropriate examination, counseling and educating the patient/family/caregiver, and communicating with other HCPs (not separately reported). Joint visit made with N/A Plan of Care discussed with facility nursing staff, patient, and referring provider. Wound care was performed during visit. All documentation from previous visit of 01/10/2024 was copied and pasted, documentation has been reviewed and edited as necessary for today's visit on 01/24/2024. SIGNATURE: Sharan Dominguez APRN.GONZALEZ POLLOCK PATIENT NAME: Chikis Tobar DATE: 01/24/2024 OFFICE #: [id number] PAGER/CELL: [phone] documented in this encounterThe [facility]10-[facility] History of Present illness Narrative* Dilcia Carl APRN.CNP - 01/24/2024 4:55 PM EDT Images from the original note were not included. Connected Care Unit Progress Note Patient Name: Chikis Tobar Patient Facility: [facility] Admit Date 11/09/23 Level of Care: Skilled SNF Attending: Amelia Parisi D.O. Service Date: 01/24/2024 Code Status: Chief Complaint: Evaluation regarding hydrocephalus, meningitis ASSESSMENT AND PLAN ASSESSMENT/PLAN: 1. 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 denies SHANNON, dizziness or double/blurred vision at this time 11/15: No change in condition. Pt. participating in PT/OT, eating and drinking appropriately. No bowel or bladder issues. afebrile, non-toxic appearing. Pt.c/o BLE muscle cramps, Mag 1.9, muscle relaxer changed to methocarbamol 750mg po QID. Pt. has f/u with MD today to possibly hold anti-fungal due to muscle spasms that may be 2/2 anti-fungal. hemodynamically stable. No acute issues at this time. 11/19: No change in condition. Pt. participating in PT/OT as tolerated with BLE muscle spasms. Pt. states there is slight improvement with change in muscle relaxer and the muscle spasms. will attempt medrol dose pack therapy at this time and monitor blood glucose closely. eating and drinking appropriately. No bowel or bladder issues. Labs reviewed, hemodynamically stable. No acute issues at this time. 11/21: Hemodynamically stable, eating and drinking appropriately. Labs reviewed. participating in pt/ot, afebrile, non-toxic appearing. pt. refusing medrol dose pack at this time, pt. wants to wait onemore week of cessation of anti-fungal. no bowel or bladder issues at this time. No acute issues. 11/28: No change in condition. Pt. participating in PT/OT, eating and drinking appropriately. No bowel or bladder issues. afebrile, non-toxic appearing. pt. c/o continued BLE muscle spasms with pain, current regimen non-effective. will start medrol dose pack at this time, hemodynamically stable. No acute issues at this time. 12/05: Hemodynamically stable, eating and drinking appropriately. participating in pt/ot, denies pain at this time, afebrile, non-toxic appearing. pt. had f/u with neurosurgery with recommendations tochange muscle relaxer and f/u with neuro in [address] scan brain. no bowel or bladder issues at this time. No acute issues. 12/10: No change in condition. Pt. participating in PT/OT, eating and drinking appropriately. No bowel or bladder issues. afebrile, non-toxic appearing, Denies Cp, SOB, heart palpitations or dizziness. hemodynamically stable. No acute issues at this time. 12/12: Hemodynamically stable, eating and drinking appropriately. participating in pt/ot, denies pain at this time, afebrile, non-toxic appearing. pt. c/o continues BLE muscle spasms with pain, will start a prednisone taper at this time. no bowel or bladder issues at this time. No acute issues. 12/17: eating and drinking appropriately. Labs reviewed, BUN 39, Cr 0.6, GFR 103, CBC without leukocytosis. participating in pt/ot, pain improved with steroid taper, afebrile, non-toxic appearing. no bowel or bladder issues at this time. No acute issues. 12/19: Hemodynamically stable, eating and drinking appropriately. participating in pt/ot, pt. states the pain is improving with steroid use. Denies Cp, SOB, heart palpitations or dizziness. afebrile, non-toxic appearing. no bowel or bladder issues at this time. No acute issues. 12/24: No change in condition. Pt. participating in PT/OT with sight improvement, eating and drinking appropriately. No bowel or bladder issues. Labs reviewed, BUN 23, Cr 0.6, GFR 103, CBC without leukocytosis. Pt. denies SHANNON, dizziness or double/blurred vision. hemodynamically stable. No acute issues at this time. 12/26: Hemodynamically stable, eating and drinking appropriately. participating in PT/OT as tolerated with improvement. no bowel or bladder issues at this time. Pain improving to BLE. No acute issues. 01/02: No change in condition. Pt. participating in PT/OT with improvement, pain controlled at this time. eating and drinking appropriately. No bowel or bladder issues. hemodynamically stable. No acute issues at this time. 01/07: Hemodynamically stable, eating and drinking appropriately. Labs reviewed, BUN 21, Cr 0.5, [id number]. Non-pitting BLE edema present, marcie luong non-effective, lasix 20mg po daily x 7 days started, Denies Cp, SOB, heart palpitations or dizziness, no hypoxia reported. Denies SHANNON, dizziness or double/blurred vision. no bowel or bladder issues at this time. No acute issues. 01/09: No change in condition. Pt. participating in PT/OT, eating and drinking appropriately. No bowel or bladder issues. Labs reviewed, afebrile, non-toxic appearing, pt. has f/u today with imaging. BLE edema improved with lasix therapy., Denies Cp, SOB, heart palpitations or dizziness. hemodynamically stable. No acute issues at this time. 01/14: Hemodynamically stable, eating and drinking appropriately. participating in pt/ot, denies pain at this time, afebrile, non-toxic appearing. Lasix therapy completed today, BLE with minimal edema, Denies Cp, SOB, heart palpitations or dizziness. Pt. is s/p nerve block with some relief of pain, recommended to f/u in 4 weeks. no bowel or bladder issues at this time. No acute issues. 01/16: No change in condition. Pt. participating in PT/OT, eating and drinking appropriately. No bowel or bladder issues. afebrile, non-toxic appearing, pain improved. BLE with non-pitting edema, lasix 20mg po M/W/F with K replacement started. Denies Cp, SOB, heart palpitations or dizziness. hemodynamically stable. No acute issues at this time. 01/23: Hemodynamically stable, eating and drinking appropriately. participating in pt/ot, denies pain at this time, afebrile, non-toxic appearing. Discharge held at this time. Denies Cp, SOB, heart palpitations or dizziness. no bowel or bladder issues at this time. No acute issues. - lasix 20mg po M/W/F for edema - prednisone taper, 60, 50, 40, 30, 20, 10, 5 then done - continue ASA 81mg po BID for DVT prophylaxis - continue pain control and muscle relaxer - continue posaconazole - continue to monitor CBC/CMP - continue to monitor Dilcia Carl Appointments for Next 60 Days Date Time Provider Location Dept Phone 01/24/2024 1:30 PM SHARAN DOMINGUEZ [facility] [phone] 02/06/2024 11:00 AM RUDDY GUPTA [facility] [phone] 03/21/2024 11:00 AM REGGIE BUTLER [facility] [phone] HPI: (Per discharge summary) 58-year-old female with PMHx signficant for T1DM cb/ DKA, urothelial carcinoma of the bladder s/p radical cystectomy and ileal conduit c/b SBO (Dec 2021), HTN, chronic sinusitis, asthma, persistent encephalopathy and hydrocephalus. 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 She was followed by ID at [facility] and was on posaconazole. She is s/p shunt externalization at [facility] (06/27/23) during abdominal surgery for SBO and eventual VPS explantation (07/10/23). She was o riginally scheduled for shunt reinternalization with Dr. Oconnor on 11/20/23. She fell due to leg spasms and presented to OSH ED and admitted on 10/07/23. Found to have L tibial fx s/p [facility]amed[facility] (10[facility] She was then transferred to [facility] [place]. She is s/p VPS reimplantation by Dr. Oconnor and Dr. Evans on 10/14. Intraoperative CSF cultures without growth. Plan to continue posaconazole at least through end of this year. She isto start asa bid on 10/24 for dvt ppx. Seen by [facility] for wounds as below - Coccyx : healed. -Left posterior heel: POA -Left anterior foot : Deep Tissue Pressure Injury, acquired While in the ARU, pt received physical therapy for range of motion, transfer training, endurance/ balance, fall prevention, and gait training with appropriate assistive devices, occupational therapy for activity of daily living/equipment/ functional transfer evaluation and training, and speech thera py for language evaluation and speech re-education. Team conferences were held to monitor progress and tailor program to patients needs. Patient had appropriate pain management, bowel management, sleep management, GI and DVT prophylaxis. Pt was stable throughout ARU course without major medical comp lication. Pt participated in all therapies and although with significant gradual improvement, would benefit from continuing skilled therapies and nursing at SNF prior to returning home. 10/23 stop robaxin, add zanaflex 4mg at bedtime and 2mg tid prn 10/27 zanaflex scheduled qid 10/28 d/w IM get f/u head CT d/t unresolved spasticity with pain 10/30 Shunt adjusted by Neurosurg from to 7 11/04 add gabapentin 300mg at bedtime Interval HPI: Pt. is alert, calm and cooperative during ROS and physical exam. There are no concerns for bowel issues. ileal conduit without complications, appropriate output without sediment or hematuria. Pt. is eating and drinking fluids appropriately. walker boot in place, denies pain at this time. pt. denies SHANNON, dizziness or double/blurred vision at this time. All labs and vital signs were reviewed. Pt. is participating in PT/OT without complications. Per nursing staff there are no acute changes to be addressed at this time. 8/2: No change in condition. Pt. participating in PT/OT, eating and drinking appropriately. No bowel or bladder issues. afebrile, non-toxic appearing. Pt.c/o BLE muscle cramps, Mag 1.9, muscle relaxer changed to methocarbamol 750mg po QID. Pt. has f/u with MD today to possibly hold anti-fungal due to muscle spasms that may be 2/2 anti-fungal. hemodynamically stable. No acute issues at this time. 86: No change in condition. Pt. participating in PT/OT as tolerated with BLE muscle spasms. Pt. states there is slight improvement with change in muscle relaxer and the muscle spasms. will attempt medrol dose pack therapy at this time and monitor blood glucose closely. eating and drinking appropriately. No bowel or bladder issues. Labs reviewed, hemodynamically stable. No acute issues at this time. 88: Hemodynamically stable, eating and drinking appropriately. Labs reviewed. participating in pt/ot, afebrile, non-toxic appearing. pt. refusing medrol dose pack at this time, pt. wants to wait onemore week of cessation of anti-fungal. no bowel or bladder issues at this time. No acute issues. 8/15: No change in condition. Pt. participating in PT/OT, eating and drinking appropriately. No bowel or bladder issues. afebrile, non-toxic appearing. pt. c/o continued BLE muscle spasms with pain, current regimen non-effective. will start medrol dose pack at this time, hemodynamically stable. No acute issues at this time. 12/05: Hemodynamically stable, eating and drinking appropriately. participating in pt/ot, denies pain at this time, afebrile, non-toxic appearing. pt. had f/u with neurosurgery with recommendations tochange muscle relaxer and f/u with neuro in [address] scan brain. no bowel or bladder issues at this time. No acute issues. 12/10: No change in condition. Pt. participating in PT/OT, eating and drinking appropriately. No bowel or bladder issues. afebrile, non-toxic appearing, Denies Cp, SOB, heart palpitations or dizziness. hemodynamically stable. No acute issues at this time. 12/12: Hemodynamically stable, eating and drinking appropriately. participating in pt/ot, denies pain at this time, afebrile, non-toxic appearing. pt. c/o continues BLE muscle spasms with pain, will start a prednisone taper at this time. no bowel or bladder issues at this time. No acute issues. 12/17: BP soft without dizziness, currently taking metoprolol BID, was taking once daily at home. Metoprolol decreased to once daily in am vs. BID. eating and drinking appropriately. Labs reviewed, BUN39, Cr 0.6, GFR 103, CBC without leukocytosis. participating in pt/ot, pain improved with steroid taper, afebrile, non-toxic appearing. no bowel or bladder issues at this time. No acute issues. 12/19: Hemodynamically stable, eating and drinking appropriately. participating in pt/ot, pt. states the pain is improving with steroid use. Denies Cp, SOB, heart palpitations or dizziness. afebrile, non-toxic appearing. no bowel or bladder issues at this time. No acute issues. 12/24: No change in condition. Pt. participating in PT/OT with sight improvement, eating and drinking appropriately. No bowel or bladder issues. Labs reviewed, BUN 23, Cr 0.6, GFR 103, CBC without leukocytosis. Pt. denies SHANNON, dizziness or double/blurred vision. hemodynamically stable. No acute issues at this time. 12/26: Hemodynamically stable, eating and drinking appropriately. participating in PT/OT as tolerated with improvement. no bowel or bladder issues at this time. Pain improving to BLE. No acute issues. 01/02: No change in condition. Pt. participating in PT/OT with improvement, pain controlled at this time. eating and drinking appropriately. No bowel or bladder issues. hemodynamically stable. No acute issues at this time. 01/07: Hemodynamically stable, eating and drinking appropriately. Labs reviewed, BUN 21, Cr 0.5, [id number]. Non-pitting BLE edema present, marcie hose non-effective, lasix 20mg po daily x 7 days started, Denies Cp, SOB, heart palpitations or dizziness, no hypoxia reported. Denies SHANNON, dizziness or double/blurred vision. no bowel or bladder issues at this time. No acute issues. 01/09: No change in condition. Pt. participating in PT/OT, eating and drinking appropriately. No bowel or bladder issues. Labs reviewed, afebrile, non-toxic appearing, pt. has f/u today with imaging. BLE edema improved with lasix therapy., Denies Cp, SOB, heart palpitations or dizziness. hemodynamically stable. No acute issues at this time. 01/14: Hemodynamically stable, eating and drinking appropriately. participating in pt/ot, denies pain at this time, afebrile, non-toxic appearing. Lasix therapy completed today, BLE with minimal edema, Denies Cp, SOB, heart palpitations or dizziness. Pt. is s/p nerve block with some relief of pain, recommended to f/u in 4 weeks. no bowel or bladder issues at this time. No acute issues. 01/16: No change in condition. Pt. participating in PT/OT, eating and drinking appropriately. No bowel or bladder issues. afebrile, non-toxic appearing, pain improved. BLE with non-pitting edema, lasix 20mg po M/W/ with K replacement started. Denies Cp, SOB, heart palpitations or dizziness. hemodynamically stable. No acute issues at this time. 01/23: Hemodynamically stable, eating and drinking appropriately. participating in pt/ot, denies pain at this time, afebrile, non-toxic appearing. Discharge held at this time. Denies Cp, SOB, heart palpitations or dizziness. no bowel or bladder issues at this time. No acute issues. PAST MEDICAL HISTORY Diagnosis Date Asthma 02/16/2021 Bladder cancer (HCC) 02/2021 urothelial carcinoma Diabetes mellitus type 1 (HCC) 04/13/2021 diagnosed at age 6 HTN (hypertension) 02/16/2021 Neoplasm of bladder 02/16/2021 Obesity 02/16/2021 Palpitations 02/16/2021 SUBJECTIVE: Review of Systems Constitutional: Positive for activity change and fatigue. Negative for fever. Respiratory: Negative. Cardiovascular: Positive for leg swelling. Gastrointestinal: Negative. Musculoskeletal: Positive for arthralgias. Neurological: Positive for weakness. Psychiatric/Behavioral: Negative. No reports of falls/injuries, changes in cognition/behaviors, or any uncontrolled pain exacerbations. Medications: Medications listed in Epic during SNF admission may not be current. Refer to facility record. Patient records, current medications, most recent labs, family/social history (unchanged) Reviewed.Refer to facility records. OBJECTIVE: Labs/diagnostics: reviewed Physical Exam: Physical Exam Constitutional: General: She is not in acute distress. Appearance: She is not toxic-appearing. HENT: Mouth/Throat: Mouth: Mucous membranes are moist. Pharynx: Oropharynx is clear. Eyes: Conjunctiva/sclera: Conjunctivae normal. Cardiovascular: Rate and Rhythm: Normal rate. Pulses: Normal pulses. Heart sounds: Normal heart sounds. Pulmonary: Effort: Pulmonary effort is normal. Breath sounds: Normal breath sounds. Abdominal: General: Bowel sounds are normal. Palpations: Abdomen is soft. Musculoskeletal: Right lower leg: Edema present. Left lower leg: Edema present. Skin: General: Skin is warm and dry. Capillary Refill: Capillary refill takes less than 2 seconds. Neurological: Mental Status: She is alert. Mental status is at baseline. Motor: Weakness present. Psychiatric: Mood and Affect: Mood normal. Behavior: Behavior normal. Some elements from the note on 01/17/24 have not changed and have been copied from that note. Any changes in condition have been addressed and charted accordingly. POC discussed with appropriate parties and nursing staff. Electronically signed by Dilcia Carl APRN.STABLE HELPER documented in this encounterThe [facility]10-08-[facility] History of Present illness Narrative* Dilcia Carl APRN.CNP - 01/22/2024 10:40 AM EDT Images from the original note were not included. Connected Care Unit Discharge Summary SNF Connected Care Program [facility] [address], [address]) [place] [address] CONNECTED CARE DISCHARGE SUMMARY Service Date: 01/22/2024 Admission Date: 11/09/23 Discharge Date: 01/23/24 Facility: [facility] Level of Care: Skilled SNF Attending: Amelia Parisi D.O. Connected Care Primary Care Physician: Kalli Simons MD Principal Diagnosis: Obstructive hydrocephalus (hcc) (primary encounter diagnosis) Fungal meningitis Essential hypertension Tibia/fibula fracture, left, closed, initial encounter Diabetes mellitus type 1, controlled, without complications (hcc) Subacute Course: During SNF admission, patient's underlying comorbidities were managed appropriately while addressing any acute issues that were present. Pt. participated in PT/OT without complications. No falls were reported during SNF admission. Tests/Procedures: routine labs Transitions of Care Critical Issues: Imaging follow-up: None Lab Monitoring Needed: None Specialists Follow-Up: None Discharge Physical Exam: Physical Exam Constitutional: General: She is not in acute distress. Appearance: She is not toxic-appearing. HENT: Mouth/Throat: Mouth: Mucous membranes are moist. Pharynx: Oropharynx is clear. Eyes: Conjunctiva/sclera: Conjunctivae normal. Cardiovascular: Rate and Rhythm: Normal rate. Pulses: Normal pulses. Heart sounds: Normal heart sounds. Pulmonary: Effort: Pulmonary effort is normal. Breath sounds: Normal breath sounds. Abdominal: General: Bowel sounds are normal. Palpations: Abdomen is soft. Musculoskeletal: Right lower leg: Edema present. Left lower leg: Edema present. Skin: General: Skin is warm and dry. Capillary Refill: Capillary refill takes less than 2 seconds. Neurological: Mental Status: She is alert. Mental status is at baseline. Motor: Weakness present. Psychiatric: Mood and Affect: Mood normal. Behavior: Behavior normal Discharge Condition: Improved Discharge Disposition: Home with [facility], PT/OT and nursing needs Discharge Medications: cyanocobalamin (VITAMIN B-12) 1,000 mcg tab Take 1,000 mcg by mouth. glucagon 3 mg/actuation nasal spray (BAQSIMI) insulin lispro 100 unit/mL injection Inject 300 Units subcutaneously. Not currently on-- using insulin pump ondansetron orally disintegrating (ZOFRAN ODT) 4 mg disintegrating tablet Take 4 mg by mouth every 6 hours as needed. DULCOLAX, BISACODYL, RECTAL by RECTAL route once daily as needed. lisinopril (ZESTRIL) 40 mg tablet Take 40 mg by mouth once daily. acetaminophen (TYLENOL) 650 mg suppository 650 mg by RECTAL route every 4 hours as needed for pain or fever (specify temp.). dextrose 40 % gel Take 15 g by mouth as needed. insulin aspart U-100 (NOVOLOG) 100 unit/mL Use via insulin pump Max daily dose 100 units, DX: E10.65 acetaminophen (TYLENOL) 325 mg tablet 2 tablets by ORAL/FEEDING TUBE route every 6 hours as needed for pain. aspirin, enteric coated (ADULT LOW DOSE ASPIRIN) 81 mg EC tablet Start ASA 81 mg BID on 10/24 Patient should start on October 25, 2023. metoprolol succinate ER (TOPROL XL) 100 mg Take 1 tablet by mouth every 12 hours at 6 am and [address] (NOXAFIL) 100 mg tablet Take 3 tablets by mouth once daily. senna-docusate (SENNA-S) 8.6-50 mg per tablet 1 tablet by ORAL/FEEDING TUBE route two times a day. methocarbamol (ROBAXIN) 500 mg tablet 1 tablet by ORAL/FEEDING TUBE route four times a day as needed. [DISCONTINUED] lactobacillus rhamnosus (CULTURELLE) 10 billion cell capsule Take 1 capsule by mouthonce daily. Functional Status: Modified independent + [facility] Scheduled Future Appointments: Future Appointments Date Time Provider Department Center 02/06/2024 11:00 AM Ruddy Gupta MD ENDO[facility] 03/21/2024 11:00 AM Reggie Butler MD [facility] S Bldg 04/10/2024 1:[address] 2 MAIN QB (I-STAT) [facility] 04/10/2024 2:00 PM Marlene Cordero PA-C [facility] Mn S [facility]ld[facility] 09/16/2024 10:45 AM LAB MAIN Q2-1 LBQ2-1 Mn Q Bldg 09/16/2024 11:[address] 2 MAIN QB (I-STAT) [facility] Prior to discharge, staff to schedule follow up appointment for patient to see PCP within 7-10 daysof discharge. I spent less than 30 minutes in the visit, with more than 50% of the total [id number] time of thevisit in counseling / coordination of care. Dilcia Carl APRN.CNP documented in this encounterThe [facility]10-03-2024 History of Present illness Narrative* Dilcia Carl APRN.CNP - 01/17/2024 12:20 PM EDT Images from the original note were not included. Connected Care Unit Progress Note Patient Name: Chikis Tobar Patient Facility: [facility] Admit Date 11/09/23 Level of Care: Skilled SNF Attending: Amelia Parisi D.O. Service Date: 01/17/2024 Code Status: Chief Complaint: Evaluation regarding hydrocephalus, meningitis ASSESSMENT AND PLAN ASSESSMENT/PLAN: 1. 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 denies SHANNON, dizziness or double/blurred vision at this time 11/15: No change in condition. Pt. participating in PT/OT, eating and drinking appropriately. No bowel or bladder issues. afebrile, non-toxic appearing. Pt.c/o BLE muscle cramps, Mag 1.9, muscle relaxer changed to methocarbamol 750mg po QID. Pt. has f/u with MD today to possibly hold anti-fungal due to muscle spasms that may be 2/2 anti-fungal. hemodynamically stable. No acute issues at this time. 11/19: No change in condition. Pt. participating in PT/OT as tolerated with BLE muscle spasms. Pt. states there is slight improvement with change in muscle relaxer and the muscle spasms. will attempt medrol dose pack therapy at this time and monitor blood glucose closely. eating and drinking appropriately. No bowel or bladder issues. Labs reviewed, hemodynamically stable. No acute issues at this time. 11/21: Hemodynamically stable, eating and drinking appropriately. Labs reviewed. participating in pt/ot, afebrile, non-toxic appearing. pt. refusing medrol dose pack at this time, pt. wants to wait onemore week of cessation of anti-fungal. no bowel or bladder issues at this time. No acute issues. 11/28: No change in condition. Pt. participating in PT/OT, eating and drinking appropriately. No bowel or bladder issues. afebrile, non-toxic appearing. pt. c/o continued BLE muscle spasms with pain, current regimen non-effective. will start medrol dose pack at this time, hemodynamically stable. No acute issues at this time. 12/05: Hemodynamically stable, eating and drinking appropriately. participating in pt/ot, denies pain at this time, afebrile, non-toxic appearing. pt. had f/u with neurosurgery with recommendations tochange muscle relaxer and f/u with neuro in [address] scan brain. no bowel or bladder issues at this time. No acute issues. 12/10: No change in condition. Pt. participating in PT/OT, eating and drinking appropriately. No bowel or bladder issues. afebrile, non-toxic appearing, Denies Cp, SOB, heart palpitations or dizziness. hemodynamically stable. No acute issues at this time. 12/12: Hemodynamically stable, eating and drinking appropriately. participating in pt/ot, denies pain at this time, afebrile, non-toxic appearing. pt. c/o continues BLE muscle spasms with pain, will start a prednisone taper at this time. no bowel or bladder issues at this time. No acute issues. 12/17: eating and drinking appropriately. Labs reviewed, BUN 39, Cr 0.6, GFR 103, CBC without leukocytosis. participating in pt/ot, pain improved with steroid taper, afebrile, non-toxic appearing. no bowel or bladder issues at this time. No acute issues. 12/19: Hemodynamically stable, eating and drinking appropriately. participating in pt/ot, pt. states the pain is improving with steroid use. Denies Cp, SOB, heart palpitations or dizziness. afebrile, non-toxic appearing. no bowel or bladder issues at this time. No acute issues. 12/24: No change in condition. Pt. participating in PT/OT with sight improvement, eating and drinking appropriately. No bowel or bladder issues. Labs reviewed, BUN 23, Cr 0.6, GFR 103, CBC without leukocytosis. Pt. denies SHANNON, dizziness or double/blurred vision. hemodynamically stable. No acute issues at this time. 12/26: Hemodynamically stable, eating and drinking appropriately. participating in PT/OT as tolerated with improvement. no bowel or bladder issues at this time. Pain improving to BLE. No acute issues. 01/02: No change in condition. Pt. participating in PT/OT with improvement, pain controlled at this time. eating and drinking appropriately. No bowel or bladder issues. hemodynamically stable. No acute issues at this time. 01/07: Hemodynamically stable, eating and drinking appropriately. Labs reviewed, BUN 21, Cr 0.5, [id number]. Non-pitting BLE edema present, marcie hose non-effective, lasix 20mg po daily x 7 days started, Denies Cp, SOB, heart palpitations or dizziness, no hypoxia reported. Denies SHANNON, dizziness or double/blurred vision. no bowel or bladder issues at this time. No acute issues. 01/09: No change in condition. Pt. participating in PT/OT, eating and drinking appropriately. No bowel or bladder issues. Labs reviewed, afebrile, non-toxic appearing, pt. has f/u today with imaging. BLE edema improved with lasix therapy., Denies Cp, SOB, heart palpitations or dizziness. hemodynamically stable. No acute issues at this time. 01/14: Hemodynamically stable, eating and drinking appropriately. participating in pt/ot, denies pain at this time, afebrile, non-toxic appearing. Lasix therapy completed today, BLE with minimal edema, Denies Cp, SOB, heart palpitations or dizziness. Pt. is s/p nerve block with some relief of pain, recommended to f/u in 4 weeks. no bowel or bladder issues at this time. No acute issues. 01/16: No change in condition. Pt. participating in PT/OT, eating and drinking appropriately. No bowel or bladder issues. afebrile, non-toxic appearing, pain improved. BLE with non-pitting edema, lasix 20mg po M/W/F with K replacement started. Denies Cp, SOB, heart palpitations or dizziness. hemodynamically stable. No acute issues at this time. - lasix 20mg po M/W/F for edema - prednisone taper, 60, 50, 40, 30, 20, 10, 5 then done - continue ASA 81mg po BID for DVT prophylaxis - continue pain control and muscle relaxer - continue posaconazole - continue to monitor CBC/CMP - continue to monitor Dilcia Carl Appointments for Next 60 Days Date Time Provider Location Dept Phone 01/17/2024 11:30 AM SHARAN DOMINGUEZ [facility] [phone] 02/06/2024 11:00 AM RUDDY GUPTA [facility] [phone] HPI: (Per discharge summary) 58-year-old female with PMHx signficant for T1DM cb/ DKA, urothelial carcinoma of the bladder s/p radical cystectomy and ileal conduit c/b SBO (Dec 2021), HTN, chronic sinusitis, asthma, persistent encephalopathy and hydrocephalus. 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 She was followed by ID at [facility] and was on posaconazole. She is s/p shunt externalization at [facility] (06/27/23) during abdominal surgery for SBO and eventual VPS explantation (07/10/23). She was o riginally scheduled for shunt reinternalization with Dr. Oconnor on 11/20/23. She fell due to leg spasms and presented to OSH ED and admitted on 10/07/23. Found to have L tibial fx s/p intramedullary nailDr. Noellemanpreetri at [facility] (10/08/23). She was then [place] [facility] [place]. She is s/p VPS reimplantation by Dr. Oconnor and Dr. Evans on 10/14. Intraoperative CSF cultures without growth. Plan to continue posaconazole at least through end of this year. She isto start asa bid on 10/24 for dvt ppx. Seen by [facility] for wounds as below - Coccyx : healed. -Left posterior heel: POA -Left anterior foot : Deep Tissue Pressure Injury, acquired While in the ARU, pt received physical therapy for range of motion, transfer training, endurance/ balance, fall prevention, and gait training with appropriate assistive devices, occupational therapy for activity of daily living/equipment/ functional transfer evaluation and training, and speech thera py for language evaluation and speech re-education. Team conferences were held to monitor progress and tailor program to patients needs. Patient had appropriate pain management, bowel management, sleep management, GI and DVT prophylaxis. Pt was stable throughout ARU course without major medical comp lication. Pt participated in all therapies and although with significant gradual improvement, would benefit from continuing skilled therapies and nursing at SNF prior to returning home. 10/23 stop robaxin, add zanaflex 4mg at bedtime and 2mg tid prn 10/27 zanaflex scheduled qid 10/28 d/w IM get f/u head CT d/t unresolved spasticity with pain 10/30 Shunt adjusted by Neurosurg from to 7 11/04 add gabapentin 300mg at bedtime Interval HPI: Pt. is alert, calm and cooperative during ROS and physical exam. There are no concerns for bowel issues. ileal conduit without complications, appropriate output without sediment or hematuria. Pt. is eating and drinking fluids appropriately. walker boot in place, denies pain at this time. pt. denies SHANNON, dizziness or double/blurred vision at this time. All labs and vital signs were reviewed. Pt. is participating in PT/OT without complications. Per nursing staff there are no acute changes to be addressed at this time. 11/15: No change in condition. Pt. participating in PT/OT, eating and drinking appropriately. No bowel or bladder issues. afebrile, non-toxic appearing. Pt.c/o BLE muscle cramps, Mag 1.9, muscle relaxer changed to methocarbamol 750mg po QID. Pt. has f/u with MD today to possibly hold anti-fungal due to muscle spasms that may be 2/2 anti-fungal. hemodynamically stable. No acute issues at this time. 11/19: No change in condition. Pt. participating in PT/OT as tolerated with BLE muscle spasms. Pt. states there is slight improvement with change in muscle relaxer and the muscle spasms. will attempt medrol dose pack therapy at this time and monitor blood glucose closely. eating and drinking appropriately. No bowel or bladder issues. Labs reviewed, hemodynamically stable. No acute issues at this time. 11/21: Hemodynamically stable, eating and drinking appropriately. Labs reviewed. participating in pt/ot, afebrile, non-toxic appearing. pt. refusing medrol dose pack at this time, pt. wants to wait onemore week of cessation of anti-fungal. no bowel or bladder issues at this time. No acute issues. 11/28: No change in condition. Pt. participating in PT/OT, eating and drinking appropriately. No bowel or bladder issues. afebrile, non-toxic appearing. pt. c/o continued BLE muscle spasms with pain, current regimen non-effective. will start medrol dose pack at this time, hemodynamically stable. No acute issues at this time. 12/05: Hemodynamically stable, eating and drinking appropriately. participating in pt/ot, denies pain at this time, afebrile, non-toxic appearing. pt. had f/u with neurosurgery with recommendations tochange muscle relaxer and f/u with neuro in [address] scan brain. no bowel or bladder issues at this time. No acute issues. 12/10: No change in condition. Pt. participating in PT/OT, eating and drinking appropriately. No bowel or bladder issues. afebrile, non-toxic appearing, Denies Cp, SOB, heart palpitations or dizziness. hemodynamically stable. No acute issues at this time. 12/12: Hemodynamically stable, eating and drinking appropriately. participating in pt/ot, denies pain at this time, afebrile, non-toxic appearing. pt. c/o continues BLE muscle spasms with pain, will start a prednisone taper at this time. no bowel or bladder issues at this time. No acute issues. 12/17: BP soft without dizziness, currently taking metoprolol BID, was taking once daily at home. Metoprolol decreased to once daily in am vs. BID. eating and drinking appropriately. Labs reviewed, BUN39, Cr 0.6, GFR 103, CBC without leukocytosis. participating in pt/ot, pain improved with steroid taper, afebrile, non-toxic appearing. no bowel or bladder issues at this time. No acute issues. 12/19: Hemodynamically stable, eating and drinking appropriately. participating in pt/ot, pt. states the pain is improving with steroid use. Denies Cp, SOB, heart palpitations or dizziness. afebrile, non-toxic appearing. no bowel or bladder issues at this time. No acute issues. 12/24: No change in condition. Pt. participating in PT/OT with sight improvement, eating and drinking appropriately. No bowel or bladder issues. Labs reviewed, BUN 23, Cr 0.6, GFR 103, CBC without leukocytosis. Pt. denies SHANNON, dizziness or double/blurred vision. hemodynamically stable. No acute issues at this time. 12/26: Hemodynamically stable, eating and drinking appropriately. participating in PT/OT as tolerated with improvement. no bowel or bladder issues at this time. Pain improving to BLE. No acute issues. 01/02: No change in condition. Pt. participating in PT/OT with improvement, pain controlled at this time. eating and drinking appropriately. No bowel or bladder issues. hemodynamically stable. No acute issues at this time. 01/07: Hemodynamically stable, eating and drinking appropriately. Labs reviewed, BUN 21, Cr 0.5, [id number]. Non-pitting BLE edema present, marcie hose non-effective, lasix 20mg po daily x 7 days started, Denies Cp, SOB, heart palpitations or dizziness, no hypoxia reported. Denies SHANNON, dizziness or double/blurred vision. no bowel or bladder issues at this time. No acute issues. 01/09: No change in condition. Pt. participating in PT/OT, eating and drinking appropriately. No bowel or bladder issues. Labs reviewed, afebrile, non-toxic appearing, pt. has f/u today with imaging. BLE edema improved with lasix therapy., Denies Cp, SOB, heart palpitations or dizziness. hemodynamically stable. No acute issues at this time. 01/14: Hemodynamically stable, eating and drinking appropriately. participating in pt/ot, denies pain at this time, afebrile, non-toxic appearing. Lasix therapy completed today, BLE with minimal edema, Denies Cp, SOB, heart palpitations or dizziness. Pt. is s/p nerve block with some relief of pain, recommended to f/u in 4 weeks. no bowel or bladder issues at this time. No acute issues. 01/16: No change in condition. Pt. participating in PT/OT, eating and drinking appropriately. No bowel or bladder issues. afebrile, non-toxic appearing, pain improved. BLE with non-pitting edema, lasix 20mg po M// with K replacement started. Denies Cp, SOB, heart palpitations or dizziness. hemodynamically stable. No acute issues at this time. PAST MEDICAL HISTORY Diagnosis Date Asthma 02/16/2021 Bladder cancer (HCC) 02/2021 urothelial carcinoma Diabetes mellitus type 1 (HCC) 04/13/2021 diagnosed at age 6 HTN (hypertension) 02/16/2021 Neoplasm of bladder 02/16/2021 Obesity 02/16/2021 Palpitations 02/16/2021 SUBJECTIVE: Review of Systems Constitutional: Positive for activity change and fatigue. Negative for fever. Respiratory: Negative. Cardiovascular: Positive for leg swelling. Gastrointestinal: Negative. Musculoskeletal: Positive for arthralgias. Neurological: Positive for weakness. Psychiatric/Behavioral: Negative. No reports of falls/injuries, changes in cognition/behaviors, or any uncontrolled pain exacerbations. Medications: Medications listed in Epic during SNF admission may not be current. Refer to facility record. Patient records, current medications, most recent labs, family/social history (unchanged) Reviewed.Refer to facility records. OBJECTIVE: Labs/diagnostics: reviewed Physical Exam: Physical Exam Constitutional: General: She is not in acute distress. Appearance: She is not toxic-appearing. HENT: Mouth/Throat: Mouth: Mucous membranes are moist. Pharynx: Oropharynx is clear. Eyes: Conjunctiva/sclera: Conjunctivae normal. Cardiovascular: Rate and Rhythm: Normal rate. Pulses: Normal pulses. Heart sounds: Normal heart sounds. Pulmonary: Effort: Pulmonary effort is normal. Breath sounds: Normal breath sounds. Abdominal: General: Bowel sounds are normal. Palpations: Abdomen is soft. Musculoskeletal: Right lower leg: Edema present. Left lower leg: Edema present. Skin: General: Skin is warm and dry. Capillary Refill: Capillary refill takes less than 2 seconds. Neurological: Mental Status: She is alert. Mental status is at baseline. Motor: Weakness present. Psychiatric: Mood and Affect: Mood normal. Behavior: Behavior normal. Some elements from the note on 01/15/24 have not changed and have been copied from that note. Any changes in condition have been addressed and charted accordingly. POC discussed with appropriate parties and nursing staff. Electronically signed by Dilcia Carl APRN.STABLE HELPER documented in this encounterThe [facility] System10-01-2024 History of Present illness Narrative* Dilcia Carl APRN.STABLE HELPER - 01/15/2024 3:56 PM EDT Images from the original note were not included. Connected Care Unit Progress Note Patient Name: Chikis Tobar Patient Facility: [facility] Admit Date 11/09/23 Level of Care: Skilled SNF Attending: Amelia Parisi D.O. Service Date: 01/15/2024 Code Status: Chief Complaint: Evaluation regarding hydrocephalus, meningitis ASSESSMENT AND PLAN ASSESSMENT/PLAN: 1. 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 denies SHANNON, dizziness or double/blurred vision at this time 11/15: No change in condition. Pt. participating in PT/OT, eating and drinking appropriately. No bowel or bladder issues. afebrile, non-toxic appearing. Pt.c/o BLE muscle cramps, Mag 1.9, muscle relaxer changed to methocarbamol 750mg po QID. Pt. has f/u with MD today to possibly hold anti-fungal due to muscle spasms that may be 2/2 anti-fungal. hemodynamically stable. No acute issues at this time. 11/19: No change in condition. Pt. participating in PT/OT as tolerated with BLE muscle spasms. Pt. states there is slight improvement with change in muscle relaxer and the muscle spasms. will attempt medrol dose pack therapy at this time and monitor blood glucose closely. eating and drinking appropriately. No bowel or bladder issues. Labs reviewed, hemodynamically stable. No acute issues at this time. 11/21: Hemodynamically stable, eating and drinking appropriately. Labs reviewed. participating in pt/ot, afebrile, non-toxic appearing. pt. refusing medrol dose pack at this time, pt. wants to wait onemore week of cessation of anti-fungal. no bowel or bladder issues at this time. No acute issues. 11/28: No change in condition. Pt. participating in PT/OT, eating and drinking appropriately. No bowel or bladder issues. afebrile, non-toxic appearing. pt. c/o continued BLE muscle spasms with pain, current regimen non-effective. will start medrol dose pack at this time, hemodynamically stable. No acute issues at this time. 12/05: Hemodynamically stable, eating and drinking appropriately. participating in pt/ot, denies pain at this time, afebrile, non-toxic appearing. pt. had f/u with neurosurgery with recommendations tochange muscle relaxer and f/u with neuro in [address] scan brain. no bowel or bladder issues at this time. No acute issues. 12/10: No change in condition. Pt. participating in PT/OT, eating and drinking appropriately. No bowel or bladder issues. afebrile, non-toxic appearing, Denies Cp, SOB, heart palpitations or dizziness. hemodynamically stable. No acute issues at this time. 12/12: Hemodynamically stable, eating and drinking appropriately. participating in pt/ot, denies pain at this time, afebrile, non-toxic appearing. pt. c/o continues BLE muscle spasms with pain, will start a prednisone taper at this time. no bowel or bladder issues at this time. No acute issues. 12/17: eating and drinking appropriately. Labs reviewed, BUN 39, Cr 0.6, GFR 103, CBC without leukocytosis. participating in pt/ot, pain improved with steroid taper, afebrile, non-toxic appearing. no bowel or bladder issues at this time. No acute issues. 12/19: Hemodynamically stable, eating and drinking appropriately. participating in pt/ot, pt. states the pain is improving with steroid use. Denies Cp, SOB, heart palpitations or dizziness. afebrile, non-toxic appearing. no bowel or bladder issues at this time. No acute issues. 12/24: No change in condition. Pt. participating in PT/OT with sight improvement, eating and drinking appropriately. No bowel or bladder issues. Labs reviewed, BUN 23, Cr 0.6, GFR 103, CBC without leukocytosis. Pt. denies SHANNON, dizziness or double/blurred vision. hemodynamically stable. No acute issues at this time. 12/26: Hemodynamically stable, eating and drinking appropriately. participating in PT/OT as tolerated with improvement. no bowel or bladder issues at this time. Pain improving to BLE. No acute issues. 01/02: No change in condition. Pt. participating in PT/OT with improvement, pain controlled at this time. eating and drinking appropriately. No bowel or bladder issues. hemodynamically stable. No acute issues at this time. 01/07: Hemodynamically stable, eating and drinking appropriately. Labs reviewed, BUN 21, Cr 0.5, [id number]. Non-pitting BLE edema present, marcie hose non-effective, lasix 20mg po daily x 7 days started, Denies Cp, SOB, heart palpitations or dizziness, no hypoxia reported. Denies SHANNON, dizziness or double/blurred vision. no bowel or bladder issues at this time. No acute issues. 01/09: No change in condition. Pt. participating in PT/OT, eating and drinking appropriately. No bowel or bladder issues. Labs reviewed, afebrile, non-toxic appearing, pt. has f/u today with imaging. BLE edema improved with lasix therapy., Denies Cp, SOB, heart palpitations or dizziness. hemodynamically stable. No acute issues at this time. 01/14: Hemodynamically stable, eating and drinking appropriately. participating in pt/ot, denies pain at this time, afebrile, non-toxic appearing. Lasix therapy completed today, BLE with minimal edema, Denies Cp, SOB, heart palpitations or dizziness. Pt. is s/p nerve block with some relief of pain, recommended to f/u in 4 weeks. no bowel or bladder issues at this time. No acute issues. - prednisone taper, 60, 50, 40, 30, 20, 10, 5 then done - continue ASA 81mg po BID for DVT prophylaxis - continue pain control and muscle relaxer - continue posaconazole - continue to monitor CBC/CMP - continue to monitor Dilcia Carl Appointments for Next 60 Days Date Time Provider Location Dept Phone 02/06/2024 11:00 AM RUDDY GUPTA [phone] HPI: (Per discharge summary) 58-year-old female with PMHx signficant for T1DM cb/ DKA, urothelial carcinoma of the bladder s/p radical cystectomy and ileal conduit c/b SBO (Dec 2021), HTN, chronic sinusitis, asthma, persistent encephalopathy and hydrocephalus. 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 She was followed by ID at [facility] and was on posaconazole. She is s/p shunt externalization at [facility] (06/27/23) during abdominal surgery for SBO and eventual VPS explantation (07/10/23). She was o riginally scheduled for shunt reinternalization with Dr. Oconnor on 11/20/23. She fell due to leg spasms and presented to OSH ED and admitted on 10/07/23. Found to have L tibial fx s/p [facility]amed[facility] She was then transferred to [facility] [place]. She is s/p VPS reimplantation by Dr. Oconnor and Dr. Evans on 10/14. Intraoperative CSF cultures without growth. Plan to continue posaconazole at least through end of this year. She isto start asa bid on 10/24 for dvt ppx. Seen by [facility] for wounds as below - Coccyx : healed. -Left posterior heel: POA -Left anterior foot : Deep Tissue Pressure Injury, acquired While in the ARU, pt received physical therapy for range of motion, transfer training, endurance/ balance, fall prevention, and gait training with appropriate assistive devices, occupational therapy for activity of daily living/equipment/ functional transfer evaluation and training, and speech thera py for language evaluation and speech re-education. Team conferences were held to monitor progress and tailor program to patients needs. Patient had appropriate pain management, bowel management, sleep management, GI and DVT prophylaxis. Pt was stable throughout ARU course without major medical comp lication. Pt participated in all therapies and although with significant gradual improvement, would benefit from continuing skilled therapies and nursing at SNF prior to returning home. 10/23 stop robaxin, add zanaflex 4mg at bedtime and 2mg tid prn 10/27 zanaflex scheduled qid 10/28 d/w IM get f/u head CT d/t unresolved spasticity with pain 10/30 Shunt adjusted by Neurosurg from to 7 11/04 add gabapentin 300mg at bedtime Interval HPI: Pt. is alert, calm and cooperative during ROS and physical exam. There are no concerns for bowel issues. ileal conduit without complications, appropriate output without sediment or hematuria. Pt. is eating and drinking fluids appropriately. walker boot in place, denies pain at this time. pt. denies SHANNON, dizziness or double/blurred vision at this time. All labs and vital signs were reviewed. Pt. is participating in PT/OT without complications. Per nursing staff there are no acute changes to be addressed at this time. 8/2: No change in condition. Pt. participating in PT/OT, eating and drinking appropriately. No bowel or bladder issues. afebrile, non-toxic appearing. Pt.c/o BLE muscle cramps, Mag 1.9, muscle relaxer changed to methocarbamol 750mg po QID. Pt. has f/u with MD today to possibly hold anti-fungal due to muscle spasms that may be 2/2 anti-fungal. hemodynamically stable. No acute issues at this time. 8/6: No change in condition. Pt. participating in PT/OT as tolerated with BLE muscle spasms. Pt. states there is slight improvement with change in muscle relaxer and the muscle spasms. will attempt medrol dose pack therapy at this time and monitor blood glucose closely. eating and drinking appropriately. No bowel or bladder issues. Labs reviewed, hemodynamically stable. No acute issues at this time. 11/21: Hemodynamically stable, eating and drinking appropriately. Labs reviewed. participating in pt/ot, afebrile, non-toxic appearing. pt. refusing medrol dose pack at this time, pt. wants to wait onemore week of cessation of anti-fungal. no bowel or bladder issues at this time. No acute issues. 11/28: No change in condition. Pt. participating in PT/OT, eating and drinking appropriately. No bowel or bladder issues. afebrile, non-toxic appearing. pt. c/o continued BLE muscle spasms with pain, current regimen non-effective. will start medrol dose pack at this time, hemodynamically stable. No acute issues at this time. 12/05: Hemodynamically stable, eating and drinking appropriately. participating in pt/ot, denies pain at this time, afebrile, non-toxic appearing. pt. had f/u with neurosurgery with recommendations tochange muscle relaxer and f/u with neuro in [address] scan brain. no bowel or bladder issues at this time. No acute issues. 12/10: No change in condition. Pt. participating in PT/OT, eating and drinking appropriately. No bowel or bladder issues. afebrile, non-toxic appearing, Denies Cp, SOB, heart palpitations or dizziness. hemodynamically stable. No acute issues at this time. 12/12: Hemodynamically stable, eating and drinking appropriately. participating in pt/ot, denies pain at this time, afebrile, non-toxic appearing. pt. c/o continues BLE muscle spasms with pain, will start a prednisone taper at this time. no bowel or bladder issues at this time. No acute issues. 12/17: BP soft without dizziness, currently taking metoprolol BID, was taking once daily at home. Metoprolol decreased to once daily in am vs. BID. eating and drinking appropriately. Labs reviewed, BUN39, Cr 0.6, GFR 103, CBC without leukocytosis. participating in pt/ot, pain improved with steroid taper, afebrile, non-toxic appearing. no bowel or bladder issues at this time. No acute issues. 12/19: Hemodynamically stable, eating and drinking appropriately. participating in pt/ot, pt. states the pain is improving with steroid use. Denies Cp, SOB, heart palpitations or dizziness. afebrile, non-toxic appearing. no bowel or bladder issues at this time. No acute issues. 12/24: No change in condition. Pt. participating in PT/OT with sight improvement, eating and drinking appropriately. No bowel or bladder issues. Labs reviewed, BUN 23, Cr 0.6, GFR 103, CBC without leukocytosis. Pt. denies SHANNON, dizziness or double/blurred vision. hemodynamically stable. No acute issues at this time. 12/26: Hemodynamically stable, eating and drinking appropriately. participating in PT/OT as tolerated with improvement. no bowel or bladder issues at this time. Pain improving to BLE. No acute issues. 01/02: No change in condition. Pt. participating in PT/OT with improvement, pain controlled at this time. eating and drinking appropriately. No bowel or bladder issues. hemodynamically stable. No acute issues at this time. 01/07: Hemodynamically stable, eating and drinking appropriately. Labs reviewed, BUN 21, Cr 0.5, [id number]. Non-pitting BLE edema present, marcie hose non-effective, lasix 20mg po daily x 7 days started, Denies Cp, SOB, heart palpitations or dizziness, no hypoxia reported. Denies SHANNON, dizziness or double/blurred vision. no bowel or bladder issues at this time. No acute issues. 01/09: No change in condition. Pt. participating in PT/OT, eating and drinking appropriately. No bowel or bladder issues. Labs reviewed, afebrile, non-toxic appearing, pt. has f/u today with imaging. BLE edema improved with lasix therapy., Denies Cp, SOB, heart palpitations or dizziness. hemodynamically stable. No acute issues at this time. 01/14: Hemodynamically stable, eating and drinking appropriately. participating in pt/ot, denies pain at this time, afebrile, non-toxic appearing. Lasix therapy completed today, BLE with minimal edema, Denies Cp, SOB, heart palpitations or dizziness. Pt. is s/p nerve block with some relief of pain, recommended to f/u in 4 weeks. no bowel or bladder issues at this time. No acute issues. PAST MEDICAL HISTORY Diagnosis Date Asthma 02/16/2021 Bladder cancer (HCC) 02/2021 urothelial carcinoma Diabetes mellitus type 1 (HCC) 04/13/2021 diagnosed at age 6 HTN (hypertension) 02/16/2021 Neoplasm of bladder 02/16/2021 Obesity 02/16/2021 Palpitations 02/16/2021 SUBJECTIVE: Review of Systems Constitutional: Positive for activity change and fatigue. Negative for fever. Respiratory: Negative. Cardiovascular: Negative for leg swelling. Gastrointestinal: Negative. Musculoskeletal: Positive for arthralgias. Neurological: Positive for weakness. Psychiatric/Behavioral: Negative. No reports of falls/injuries, changes in cognition/behaviors, or any uncontrolled pain exacerbations. Medications: Medications listed in Epic during SNF admission may not be current. Refer to facility record. Patient records, current medications, most recent labs, family/social history (unchanged) Reviewed.Refer to facility records. OBJECTIVE: Labs/diagnostics: reviewed Physical Exam: Physical Exam Constitutional: General: She is not in acute distress. Appearance: She is not toxic-appearing. HENT: Mouth/Throat: Mouth: Mucous membranes are moist. Pharynx: Oropharynx is clear. Eyes: Conjunctiva/sclera: Conjunctivae normal. Cardiovascular: Rate and Rhythm: Normal rate. Pulses: Normal pulses. Heart sounds: Normal heart sounds. Pulmonary: Effort: Pulmonary effort is normal. Breath sounds: Normal breath sounds. Abdominal: General: Bowel sounds are normal. Palpations: Abdomen is soft. Skin: General: Skin is warm and dry. Capillary Refill: Capillary refill takes less than 2 seconds. Neurological: Mental Status: She is alert. Mental status is at baseline. Motor: Weakness present. Psychiatric: Mood and Affect: Mood normal. Behavior: Behavior normal. Some elements from the note on 01/10/24 have not changed and have been copied from that note. Any changes in condition have been addressed and charted accordingly. POC discussed with appropriate parties and nursing staff. Electronically signed by Dilcia Carl APRN.STABLE HELPER documented in this encounterThe [facility]09-27-[facility]24 History of Present illness Narrative* Noel Daniels MD - 01/11/2024 5:18 PM EDT Images from the original note were not included. PROCEDURE NOTE: Obturator nerve Block with Phenol (aqueous 6%) for spasticity management / Phenol Neurolysis Patient accompanied by : Self Current complaints: Spasticity and spasms Brief HPI: Chikis Tobar is a 58 year old right-handed female with past medical history of T1DM cb/ DKA, urothelial carcinoma of the bladder s/p radical cystectomy and ileal conduit c/b SBO (Dec 2021), HTN, chronic sinusitis, asthma, fungal meningitis, myelitis and hydrocephalus status post 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 plac ement June 2022, externalization on 06/25/2023, removal 07/10/2023 and reimplantation on 10/15/2023. Patient experienced impaired mobility and functions after removal of shunt and noted minimal improvement in lower extremity function post shunt reimplantation. She was evaluated in PM&R spasticity clinic initially on 12/04/2023 for paraplegia and associated severe spasticity and flexor spasms. Sheis currently at long term facility. She reports to clinic today for initial phenol injections. History since last visit: Continues to follow-up with neurology, neurosurgery, infectious disease. She was restarted on antifungal as per ID. She is currently on Lasix for lower extremity edema which was started this week. She has discontinued gabapentin but denies any worsening or change in spasms. She reports improvement in sit to stand. Her spasms in right lower extremity have reduced but continues to have severe spasms in left lower extremity. She reports intermittent severe spasms causing hip adduction making itdifficult for her to perform perineal hygiene or dressing of lower body. She feels that her strength in lower extremity has increased. She continues to work with daily physical therapy. She denies buckling of her knees and feels that she is able to stand better. She continues to use a manual wheelchair. She has a sliding board for transfer. She denies use of any orthotics. She is on steroid taper which is given for spasms as per documentation brought by patient. -Hospitalization/ER visit: No -New weakness or numbness: No -Fever or flu like symptoms : No -Ongoing antibiotics: No -Other: - -Anticoagulation/antiplatelet medications: Aspirin -Allergy to cow milk protein: No -Denies any concerns with bowel and bladder function Spasticity treatment: -Home exercise routine: - -PT/OT: Yes Daily physical therapy from Sunday to Sunday -Medications: Baclofen 10 mg-10 mg - 20 mg, tolerating well, denies any side effects -Other/orthosis: No Patient goals: -reduce lower extremity spasms -Reduce discomfort/pain associated with spasms -Improve participation in therapies -Improve positioning in bed, wheelchair -Improve mobility/transfers and ambulation Pain related to the purpose of the visit: No 0 on a scale of 0 to 10 Patient Entered Data PROMIS No data to display Spasticity NRS No data to display Spasm Scale No data to display Global Impression of Change No data to display Nutritional status: appetite , weight , swallowing - stable Driving issues: NA Safety concerns regarding living situations and safety at home: NA At risk for falling: Yes . No falls recently Examination: BP 105/64 Pulse 61 Ht 165.1 cm (5' 5 ) Wt 67.1 kg (148 lb) SpO2 100% BMI 24.63 kg/m General: The patient is a well-nourished, well groomed who appears stated age. HEAD: Normocephalic EYE: -Appearance: Sclera nonicteric, PERRLA ENT: no rhinorrhea, MMM Lung: breathing unlabored in room air Skin: skin turgor is normal. Healed midline incision over anterior abdomen present. GI/: Insulin pump present over left anterior abdomen present Ileal conduit with external collecting bag noted on right side draining clear urine. Extremity: edema noted in both lower extremities. Neuro: The patient was alert and oriented Articulated speech with intact comprehension Able to provide treatment history Emotional lability present Cranial Nerves: Eye movements were full without nystagmus. Facial sensation was normal to light touch and pinprick. Muscles of mastication and facial expression moved normally. Hearing was intact to conversation. Normal phonation. Sternocleidomastoid and trapezius power were normal. There was no dysarthria. Strength Right Left Shoulder abduction 4 5 Elbow flexion 5 5 Elbow extension 5 5 Wrist extension 5 5 Hip flexion 2+ 3+ Knee flexion 3+ 3+ Knee extension 3+ 2+ Plantarflexion 2+ 3+ Dorsiflexion 3 3+ Strength: Bilateral FDS-FDP 5/5 Bilateral abductor digiti minimi 5/5 Bilateral EPL 5/5 bilateral FPL 5/5 Right EHL-not tested Left EHL 1+/5. Spasticity Right Left Shoulder 0 0 Elbow flexors 0 0 Elbow extensors 0 0 Wrist flexors 0 0 Wrist extensors 0 0 Finger flexors 0 0 Finger extensors 0 0 Hip adductors 1+ 2 Knee extensors 0. 0 Knee flexors 1+ 2 Plantarflexors 1 0 Modified Warren Scale 0 - No increase in tone 1 - Slight increase in tone (catch and release at end of ROM) 1+ - Slight increase in tone, manifested by a catch, followed by minimal resistance throughout remainder (less than half of ROM) 2 - Marked increase in tone through most of the ROM, but affected part(s) easily moved 3 - Considerable increase in tone; passive movement difficult 4 - Affected part(s) rigid in flexion or extension Hip flexor spasticity 1+ on right and 2 on left Spasms observed: RUE: no right upper extremity spasms LUE: no left upper extremity spasms RLE: right lower extremity spasms Spasm with right hip adduction LLE: left lower extremity spasms Spasm with left hip flexion, knee flexion Assistance required: wheelchair Gait: Needs 1 person assistance for transfer from wheelchair to exam table UNIVERSAL PROTOCOL / SAFETY CHECKLIST Procedure to be Performed: Chemodenervation with botulinum toxin A Sign In: A Moment of CARE was completed. Personnel directly involved with the procedure wore the appropriate PPE (Personal Protective Equipment). Special equipment: EMG -portable Patient/Surrogate Stated/Verified: PATIENT VERIFIED(optional for EMERGENT procedures): Patient name, Date of , Relevant allergies, and The intended procedure Time Out Communication: Intended patient and procedure match the source documents. Consent documented and matches the intended procedure. No relevant labs, photos, and/or imaging studies were applicable for review. Correct side/site marked and visible. Medications required for procedure verified. No fire risk assessment and interventions applicable. No implant(s) inserted. Sign Out: SIGN OUT (optional for EMERGENT procedures): No specimen collected. No instruments, equipment or retained foreign bodies applicable. Post-procedure follow-up management communicated and Plan of Care Visit completed when applicable. Noel Daniels MD The risks, benefits and alternatives of the procedure were explained. Written Consent Obtained: yes - 01/11/2024 Clinician(s) performing the injections: Noel Daniels Coordinate Measuring Machine Programmer: Concepción Gutierrez LPN; Sheree Hernandez RN The patient was positioned Supine on exam table. Procedure: Phenol Neurolysis- Obturator Nerve Antiseptic preparation: betadine and alchohol Anesthesia (cutaneous): No Medication Injected: Phenol in water (6%) LOT#: [id number] EXP: 03/02/24 Site prepared with aseptic precaution. Target site identified with surface landmark and ultrasound guidance. Needle inserted under ultrasound guidance and advanced to anterior division (between Add Longus-Brevis) of obturator nerve. Contraction of the adductor compartment muscles confirmed on lowest stimulation 1 mA and 2.5 mL of 6% aqueous phenol injected perineurally after negative aspiration for each division bilaterally. No muscle contractions noted on incremental stimulation following nerve block. Total dose injected = 5 ml. No complications observed. Patient tolerated the procedure well. Verbal instructions given. Patient left in satisfactory condition. 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 She has paraplegia with severe spasticity and flexor spasms which is limiting her functions and participation in therapies. Frequency of her adductor spasms has reduced but she continues to experience intermittent severe spasms making it difficult for her to perform perineal hygiene or lower body dressing. Given reduced frequency, decided to do anterior obturator nerve block initially. She is appropriate candidate for neurolysis of obturator nerve with phenol and agreeable to the plan. (G82.22) Chronic incomplete spastic paraplegia (HCC) (primary encounter diagnosis) (M62.838) Spasm of muscle (G04.91) Myelitis (HCC) (Z74.09, Z78.9) Impaired mobility and activities of daily living MS BT PRE AUTH Plan: Bilateral anterior obturator nerve block with phenol (aqueous 6%). Ultrasound guidance used in addition to e-stim. Plan for next phenol injection as per patient response. Follow up with PM&R/Neurorehab STEVE in 4 weeks for post-injection assessment. Time spent with patient: 45 mins Noel Daniels MD Physical Medicine & Rehab [facility] documented in this encounterThe [facility]09-27-2024 Instructions* Patient Instructions* Noel Daniels MD - 01/11/2024 4:11 PM EDT You have received Anterior Obturator Nerve Block with Phenol today for lower extremity spasticity. Monitor the skin around the site of injections for any changes like redness, swelling, pain for at least a couple of days. The skin should be examined by a health wound care physician if changes persist or infection is suspected. If you notice any allergic reaction or problems swallowing, speaking, breathing seek immediate medical attention. Neurolysis/Nerve Block with phenol: - B/L Anterior Obturator nerve Please schedule a 4 week follow-up appointment with Advanced Practice Provider in our team to assess the effect of the injection. Additional changes/recommendations - Continue daily range of motion and stretching exercises - Continue working with OT and PT - Continue timely pressure relief and change in position Medications - Continue Baclofen [id number] - Ok to give 10mg PRN dose of Baclofen at bedtime. - Ok to stop Robaxin as it is not helpful. - Unclear role of steroids in spasticity management. Ok to d/c steroids unless started for different indication. Please contact our office via [employer] or by phone at [phone] with any questions or concerns. If your health insurance changes before the next injections, please contact our office at [phone] as soon as possible so we can submit a new pre- authorization if needed. Please note that we may not be able to perform the injections if your insurance changes and the treatment is not pre-authorized. documented in this encounterThe [facility]09-27-2024 Instructions* Patient Instructions* Noel Daniesl MD - 01/11/2024 3:27 PM EDT You have received botulinum toxin A (Botox) injections today for lower extremity spasticity. Monitor the skin around the site of injections for any changes like redness, swelling, pain for at least acouple of days. The skin should be examined by a health wound care physician if changes persist or infection is suspected. If you notice any allergic reaction or problems swallowing, speaking, breathingseek immediate medical attention. Muscles/areas injected: Total dose 275 units - Bilateral hip flexors (ileo-psoas) - Bilateral Medial Hamstrings - Left Lateral Hamstrings Please schedule a 4 week follow-up appointment with Advanced Practice Provider in our team to assess the effect of the injection. Please schedule the next 45 minute Botulinum toxin A injection appointment in 3 months or 13 weeks.Please note that your next injections should not be scheduled less than 90 days from today. Additional changes/recommendations - Continue daily range of motion and stretching exercises - Continue working with OT and PT - Continue timely pressure relief and change in position Medications - Continue Baclofen [id number] - Ok to give 10mg PRN dose of Baclofen at bedtime. - Ok to stop Robaxin as it is not helpful. - Unclear role of steroids in spasticity management. Ok to d/c steroids unless started for different indication. Please contact our office via [employer] or by phone at [phone] with any questions or concerns. If your health insurance changes before the next injections, please contact our office at [phone] as soon as possible so we can submit a new pre- authorization if needed. Please note that we may not be able to perform the injections if your insurance changes and the treatment is not pre-authorized. documented in this encounterThe [facility]09-27-2024 History of Present illness Narrative* Noel Daniels MD - 01/11/2024 2:59 PM EDT Images from the original note were not included. BOTULINUM TOXIN THERAPY Patient accompanied by : Self Current complaints: Spasticity and spasms Brief HPI: Chikis Tobar is a 58 year old right-handed female with past medical history of T1DM cb/ DKA, urothelial carcinoma of the bladder s/p radical cystectomy and ileal conduit c/b SBO (Dec 2021), HTN, chronic sinusitis, asthma, fungal meningitis, myelitis and hydrocephalus status post 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 plac ement June 2022, externalization on 06/25/2023, removal 07/10/2023 and reimplantation on 10/15/2023. Patient experienced impaired mobility and functions after removal of shunt and noted minimal improvement in lower extremity function post shunt reimplantation. She was evaluated in PM&R spasticity clinic initially on 12/04/2023 for paraplegia and associated severe spasticity and flexor spasms. Sheis currently at long term facility. She reports to clinic today for initial botulinum toxin Ainjections. History since last visit: Continues to follow-up with neurology, neurosurgery, infectious disease. She was restarted on antifungal as per ID. She is currently on Lasix for lower extremity edema which was started this week. She has discontinued gabapentin but denies any worsening or change in spasms. She reports improvement in sit to stand. Her spasms in right lower extremity have reduced but continues to have severe spasms in left lower extremity. She feels that her strength in lower extremity has increased. She continues to work with daily physical therapy. She denies buckling of her knees and feels that she is able to stand better. She continues to use a manual wheelchair. She has a sliding board for transfer. She denies use of any orthotics. He is on steroid taper which is given for spasms as per documentation brought by patient. -Hospitalization/ER visit: No -New weakness or numbness: No -Fever or flu like symptoms : No -Ongoing antibiotics: No -Other: - -Anticoagulation/antiplatelet medications: Aspirin -Allergy to cow milk protein: No Spasticity treatment: -Home exercise routine: - -PT/OT: Yes Daily physical therapy from Sunday to Sunday -Medications: Baclofen 10 mg-10 mg - 20 mg, tolerating well, denies any side effects -Botulinum toxin therapy: Initial visit -Other/orthosis: No -Denies any concerns with bowel and bladder function Patient goals: -reduce lower extremity spasms -Reduce discomfort/pain associated with spasms -Improve participation in therapies -Improve positioning in bed, wheelchair -Improve mobility/transfers and ambulation Botox Tracking-N/A Pain related to the purpose of the visit: No 0 on a scale of 0 to 10 Patient Entered Data PROMIS No data to display Spasticity NRS No data to display Spasm Scale No data to display Global Impression of Change No data to display Nutritional status: appetite , weight , swallowing - stable Driving issues: NA Safety concerns regarding living situations and safety at home: NA At risk for falling: Yes . No falls recently Examination: There were no vitals taken for this visit. General: The patient is a well-nourished, well groomed who appears stated age. HEAD: Normocephalic EYE: -Appearance: Sclera nonicteric, PERRLA ENT: no rhinorrhea, MMM Lung: breathing unlabored in room air Skin: skin turgor is normal. Healed midline incision over anterior abdomen present. GI/: Insulin pump present over left anterior abdomen present Ileal conduit with external collecting bag noted on right side draining clear urine. Extremity: edema noted in both lower extremities. Neuro: The patient was alert and oriented Articulated speech with intact comprehension Able to provide treatment history Emotional lability present Cranial Nerves: Eye movements were full without nystagmus. Facial sensation was normal to light touch and pinprick. Muscles of mastication and facial expression moved normally. Hearing was intact to conversation. Normal phonation. Sternocleidomastoid and trapezius power were normal. There was no dysarthria. Strength Right Left Shoulder abduction 4 5 Elbow flexion 5 5 Elbow extension 5 5 Wrist extension 5 5 Hip flexion 2+ 3+ Knee flexion 3+ 3+ Knee extension 3+ 2+ Plantarflexion 2+ 3+ Dorsiflexion 3 3+ Strength: Bilateral FDS-FDP 5/5 Bilateral abductor digiti minimi 5/5 Bilateral EPL 5/5 bilateral FPL 5/5 Right EHL-not tested Left EHL 1+/5. Spasticity Right Left Shoulder 0 0 Elbow flexors 0 0 Elbow extensors 0 0 Wrist flexors 0 0 Wrist extensors 0 0 Finger flexors 0 0 Finger extensors 0 0 Hip adductors 1+ 2 Knee extensors 0. 0 Knee flexors 1+ 2 Plantarflexors 1 0 Modified Warren Scale 0 - No increase in tone 1 - Slight increase in tone (catch and release at end of ROM) 1+ - Slight increase in tone, manifested by a catch, followed by minimal resistance throughout remainder (less than half of ROM) 2 - Marked increase in tone through most of the ROM, but affected part(s) easily moved 3 - Considerable increase in tone; passive movement difficult 4 - Affected part(s) rigid in flexion or extension Hip flexor spasticity 1+ on right and 2 on left Spasms observed: RUE: no right upper extremity spasms LUE: no left upper extremity spasms RLE: right lower extremity spasms Spasm with right hip adduction LLE: left lower extremity spasms Spasm with left hip flexion, knee flexion Assistance required: wheelchair Gait: Needs 1 person assistance for transfer from wheelchair to exam table UNIVERSAL PROTOCOL / SAFETY CHECKLIST Procedure to be Performed: Chemodenervation with botulinum toxin A Sign In: A Moment of CARE was completed. Personnel directly involved with the procedure wore the appropriate PPE (Personal Protective Equipment). Special equipment: EMG -portable Patient/Surrogate Stated/Verified: PATIENT VERIFIED(optional for EMERGENT procedures): Patient name, Date of , Relevant allergies, and The intended procedure Time Out Communication: Intended patient and procedure match the source documents. Consent documented and matches the intended procedure. No relevant labs, photos, and/or imaging studies were applicable for review. Correct side/site marked and visible. Medications required for procedure verified. No fire risk assessment and interventions applicable. No implant(s) inserted. Sign Out: SIGN OUT (optional for EMERGENT procedures): No specimen collected. No instruments, equipment or retained foreign bodies applicable. Post-procedure follow-up management communicated and Plan of Care Visit completed when applicable. Noel Daniels MD The risks, benefits and alternatives of the procedure were explained. Written Consent Obtained: yes - 01/11/2024 Clinician(s) performing the injections: Noel Daniels Coordinate Measuring Machine Programmer: Concepción Gutierrez LPN; Sheree Hernandez RN The patient was positioned Sitting and Supine on exa table. Brand of toxin injected: Botox. After skin preparation with alcohol, a total dose of 275 units were injected as follows: Muscle Limb/Side Dose Guidance Comments Hip flexor LLE 75 units EMG 2 sites Semimembranosus LLE 50 units EMG 1 sites Biceps femoris LLE 50 units EMG 2 sites Semimembranosus RLE 50 units EMG 1 sites Hip flexor LLE 50 units EMG 2 sites Total Dose: 275 25 units discarded. Dilution: 100 units / 1 ml LOT #: [id number] Expiration Date: Month: 11 Year: 26 The injections were uneventful. Minimal bleeding occurred at the injection sites which resolved before discharging patient from clinic. 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 She has paraplegia with severe spasticity and flexor spasms which is limiting her functions and participation in therapies. She is appropriate candidate for chemodenervation with botulinum toxin A and agreeable to the plan. (G82.22) Chronic incomplete spastic paraplegia (HCC) (primary encounter diagnosis) (M62.838) Spasm of muscle (G04.91) Myelitis (HCC) (Z74.09, Z78.9) Impaired mobility and activities of daily living MS BT PRE AUTH Plan: Chemodenervation with Botulinum toxin A performed detailed as above. Follow up in 13 weeks for nextset of Botulinum toxin A injections. Consider dose increment for left hip flexors, left hamstrings during next visit. Continue working with PT. Continue ROM and stretching exercise at home Continue timely pressure relief when changing position Continue Baclofen [id number]. Ok to give 10mg PRN dose of Baclofen at bedtime. Ok to stop Robaxin as it is not helpful with spasms. Unclear role of steroids in spasticity management. Ok to d/c steroids unless started for different indication. Follow up with PM&R/Neurorehab STEVE in 4 weeks for post-injection assessment. Time spent with patient: 45 mins Noel Daniels MD Physical Medicine & Rehab [facility] History of Present illness Narrative* Jamie Mccarty MD - 01/10/2024 3:33 PM EDT Images from the original note were not included. INFECTIOUS DISEASES OUTPATIENT FOLLOW-UP NOTE SERVICE DATE: January 10, 2024 Last visit:December 21, 2023 Summary of HPI HPI: 58 year old female with medical history of [...] performed and she was transferred to [facility]. She was found to have DKA. A CT head showed hydrocephalus with MRI on May 29 showing multiple enhancement in the anterior sabra, medulla, and in the spine at the level of C7-T3 and L1-S2. Multiple taps were performed and were unsuccessful. A 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 was placed and patient underwent a [...] lobes (8 mm). LFTs 08/16 normal . 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 was adjusted from 4 to 7 Posaconazole level 2.4 on 08/21/22 Developed a facial rash in September 2022, mainly the malar area, a few spots on the forehead. 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 She was seeing wound care at [facility] for her sacral area ulcer. Rx'd with [...] cytology. Continue surveillance imaging q 6 months. [place] remains in place. ID clinic 01/15/23, doing fairly well overall, tolerating posaconazole. Strength improving and ambulatory, using a cane PRN. No 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 issues. Balance has improved but still needs to work on it. Area of persistent numbness in the upper thoracic region which has not changed much, along with some areas of numbness on the lateral thighs, which has been present all along. Facial rash better, being treated as rosacea by PCP. Glucose well controlled. Plan 1 year of antifungals and then reassess withimaging. ID clinic 03/19/23: Seemed to have reached a plateau with her neuro recovery, with stable balance problems and various areas of sensory loss. Neuro exam showed abnormal Romberg (unable to stand feet together with eyes OPEN), balance deficits, some decreased sensation upper back region (around T5) and patchy areas both anterolateral thighs. Ambulatory with a cane, improving wt, and overall motor strength. Had a near fall in prior week without direct head trauma, probably due in part to chronic balance problems. Also had bilateral shoulder pains and receiving PT. Last MRI brain 07/07/22 (postop) showed FLAIR hyperintensity of trigeminal nerves, facial, and vestibulocochlear, and glossopharyngeal and vagal nerves (no significant contrast enhancement of cranial nerves though). MRI of cord 07/07/22 showed extensive leptomeningeal enhancement throughout the entire spinal canal and extending intothe brainstem and basilar cisterns. Plan for MRI of brain and spine, neurosurgical FU to evaluate shunt settings after MRI. Offered Orthopedics consult for bilateral shoulder pain, presumed rotator cuff ID clinic 05/10/23: MRI brain and spine yesterday with significant improvement in the extensive leptomeningeal enhancement (see below) from the brain stem to the cauda equina. The FLAIR hyperintensityinvolving multiple cranial nerves has resolved. Still some areas of loculation in the prepontine area and in ventral thoracic area (images below), but diffuse lepto and some pachymeningeal enhancement throughout is better. There is a persistent intramedullary T2/STIR hyperintense signal in the thoracic cord T2-T3 to T7-T8. numbness around both the knee areas in particular but also the thighs. This is not painful and she can still feel in the thigh regions as well as around both knees but it is d efinitely less than other areas. Has the sensation that the knees feel puffy but says they are not really puffy There is also an area of partial numbness on the upper back around the area of the incision that is similar; she can feel everything when touched there but the sensation is less than other areas of the back. This matches up with the MRI of the T spine. Admitted to [facility] 06/24-07/13/2023 Presented to [facility] 06/24 with c/f possible SBO. 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 NSGY maintained the externalized shunt at the clavicle via an EVD and the valve was adjusted from 7 to 8 to see if the patient would continue to remain shunt independent for a prolonged course. Following seven days of a clamped EVD, patient was deemed shunt independent and the VPSwas removed by Dr. Figueroa on 07/10/23. -Urology, Dr. Chambers, placed and managed a TOD drain that was removed prior to discharge. Bilateral ureteral stents to be removed 07/26/23 08/30/23 neurosurgery visit: Over the past 2 weeks Chikis has seen worsening in her ambulation. She continues to use a rolator but feels much more unbalanced and is starting to shuffle. No additional neurologic complaints 09/04/23 telehealth visit: she has fallen a few times in this time period. She was concerned that she was unable to get herself up off the floor on her own. 09/20/23 neurology visit -At the end of July, she developed weakness in her BLE. When she goes to turn to stand up, her legs will involuntarily flex and the hip and knee and dorsiflex at the foot. This also happens when sheis laying flat and therapists will have to help her straighten her legs. She has no control over this. It does hurt when this happens in her knee area. This has slowly been getting worse since July. The legs are also weak, R>L, and the right leg will drag when she walks. -On exam, patient has spasticity and triple flexion in BLE in addition to weakness and hyperreflexia. Findings are concerning for worsening hydrocephalus, especially given that her CT head in July showed larger ventricles compared to prior MRI -Imaging ordered but not performed yet presents today 10/04/23 to ID clinic for follow-up 10/04/23: ID clinic-- ongoing spasms in LE with tensing x 1+ month. Worsening LE weakness and spasms, no new numbness. Spasms in legs waking her up from sleep. Frequency increasing from every 2-3 days, to daily every hour or so. Worsening vision also, in July vision OD 20/20, and now 20/40 OD, and weaker on the left. Exam with long tract signs with upgoing plantars bilaterally, increased tone in LE; stable sensory deficits. We felt her symptoms were atypical from hydrocephalus, especially givenlack of any headache. She did report that the painful spasms in both legs started after the 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 was removed at [facility], so it seemed somehow related. The posaconazole level was therapeutic and thelast MRI of the brain and spinal cord showed significant improvement in the fungal infection. It seemed unlikely that her leg spasms were due to uncontrolled fungal infection. She did have some loosestools and we were considering electrolyte abnormalities as a cause of leg cramping. Plan was to continue posaconazole for another 6 months, repeat MRI of the cervical and thoracic spine in October 2023to help decide length of therapy of posaconazole. 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 She suffered a fall after an episode of leg spasms. Admitted to local hospital and dx'd with comminuted fracture of Left distal tibial bone. From there, she was transferred to [facility] She went to OR 10/08/23 intramedullary nail placement to the Left tibia. CT head 10/08 with evidence of interval increased dilation of the ventricular systems suggestive communicating hydrocephalus with mildtransependymal edema Transferred to [facility]. Seen by ID Dr Dominic Pablo for ID clearance for VPS. Dr Reagan saeed had no evidence of ongoing fungal infection. S/P Ventriculo-atrial shunt (right occipital) 10/15/2023 (Dr Oconnor), Certas valve 6. CSF sent from OR 10/15/23 showed 0 TNC, RBC 14, pro 5, glucose 80. Cryptococcal antigen, fungal cultures negative. MRI C_T spine 10/18/23 showed unchanged loculated arachnoid collection along ventral lower cervical and upper thoracic spine, with cord displacement, no change from 05/09/23. Persistent abnormal intrameduallary cord signal immediately above and below displaced cord, down to T7, minimally improved. Stable LME and pachymeningeal intradural enhancement throughout the C-T and upper lumbar spine, no change. Postop changes T5-6 decompression. D/C'd to [facility] She was continued on posaconazole 300 mg/d. Seen by ID Dr Domingo on 10/26/23. Tolerating posaconazole, stable LFTs, continue same and FU with ID at [facility] Patient contacted me on MyChart on 10/31/23 that she was having ongoing leg spasms. She was on some new medications but were not working. Very difficult to walk with the spasms. She was told that muscle spasms can happen after extended use of posaconazole. On 11/01 I let her know that it was reasonable to stop the posaconazole for 2 weeks and see if her symptoms would improve (but was continued) Went to SNF 11/03/23, [facility]. Per [facility] notes she was stable, participating in PT/OT, eating and drinking appropriately. No bowel or bladder issues. afebrile, non-toxic appearing. Pt.c/o BLE muscle cramps, Mag 1.9, muscle relaxer changed to methocarbamol 750mg po QID. Started on gabapentin 11/04 ID clinic 11/16/23: still on the posaconazole (ie did not stop the medication). No improvement with ongoing LE painful spasms where both legs would flex involuntarily at the knees in a spasm. On Robaxin, tried gabapentin (did not help much). At night the spasms were the worst. Would start in her footand toes, then the spasm would go up her leg, and legs ended up flexed at the knee so that her feetwere back behind her. Thighs got so tight that they couldn't pry them apart. Better during the day but still would get some severe daytime episodes, such as one time during PT she was at the parallelbar and the legs curled up in a spasm, the feet went beneath her and she could not stand up. A few days beforehand, she had been able to use her upper body to get some weight onto her spasming feet and straighten them up. 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 The next day, therapy came and spasms started again. Some have theorized that the spasms were controlled by the anesthesia in the OR the day before. Then she went to [facility], and was able to take a few steps with the parallel bars but nothing like at [facility] on POD [facility]. Plan was to try a ketty system to pull her along when walking, but never did it. No SHANNON. Shunt 6--> 7. CTH done at rehab after the MRI on 10/18/23; told there was too much fluid being drained and adjusted to 7 (which was the setting of the previous shunt before it was removed at [facility]) Still had decreased sensation in both legs. Can still feel things in feet and legs but felt weird. Able to feel the ground below her. She was wearing a boot on the LLE. Within two days of the surgery on the leg, developed a deep bruise on the heel. Had necrotic tissue on heel and areas on top of foot where skin had rubbed off and raw. Said the boot was never inflated, and caused the skin breakdown. Seen by wound care 11/14 and saidmuch better, skin improving, heel necrosis was more scabs. D/C'd the posaconazole on 11/16/23, with plan to monitor the leg spasms and FU 2 weeks. Had consult with Neurology scheduled also. 11/20/23: plan was medrol dose pack for BLE spasms but pt declined, wanted to wait another week off posaconazole first. continued on methocarbamol 11/28: Ortho clinic; pt had been wt bearing but no walking at all with PT. Incision well healed (left tibia IMN). X rays showed healing distal tib-fib fracture compared to previous 10/25/23. Pressure wound noted on heel; removed boot due to pressure wound, use supportive shoe with WBAT. NSGY clinic: CTH 11/28 with small bilateral subdural hygromas, which may be due to over shunting. Adjusted Certas 7-->8, plan FU [address] (tried to add her on to ID clinic 11/28 but did not see message until later) SNF: started medrol dose pack 11/28 x 1 wk --> no improvement Consult with Dr Daniels in PM&R 12/04/23: on Robaxin without benefit, gabapentin; completing medrol dose pack. Able to walk with PT in the parallel bar but someone needs to stabilize her knees from going into flexion. She transfers using a slide board. Exam with motor weakness especially hip flexors MRC 1-2/5, and knee extension. Spasticity both hip adductors (Warren 2), knee flexors. Spasms seen RLE and LLE. Impaired light touch at T10, absent PP T10; impaired LT in LE bilaterally, absent PP in LE. 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 Approximate neurological level of injury T9. Recommended continuing PT/OT and wound care, contacting ID about restarting posaconazole, D/C robaxin since not helpful, D/C medrol, increase gabapentin 600 mg qHS, trial of baclofen instead of tizanidine due to low BP in office 103/60 . Trial of botox later No improvement in BLE muscle spasms. Posaconazole restarted 12/08/2312/12: continued pain with spasms. Prednisone taper 60, 50, 40, 30, 20, 10, 5 then done Some improvement in pain ID clinic 12/21/23-- was at [facility]. Saw Neurology same day, Dr Butler. She c/o severe leg edema, felt secondary to gabapentin (started 11/05/23). Exam with severely diminished lower extremity strength, normal tone throughout, normal reflexes. Recommended stopping gabapentin, proceed with Botox injections. Confirmed she had been back on posaconazole since 12/07. Still very limited gains in PT/OT. Legs remained weak, R worse than L. R leg drags, not walking. Spasms still mainly at night, but also at times during the day during therapy-- brushing across her skin can trigger the BLE spasms. On prednisone taper; some improvement in the pain component of spasms. Problems with straightening left leg. Heel wound better; continues to see Wound Clinic (mobile); wound eschar being treated with betadine, ABD, Kerlix. PLAN-- continue posaconazole, although isavuconazole an option since some leptomeningeal enhancement still, labs, proceed with Botox CURRENTLY: (01/10/24) - remains at [facility] - on prednisone taper; continues on baclofen - pain has improved some and participating more in PT/OT, per patient and per Gerontology notes at [facility]. Legs getting a little stronger. Using parallel bars. Improved in ability to go from sitting to standing. More stable with standing - spasms better in R leg, but not in the LLE-- still with severe spasms at time. - had Lasix 20 mg po daily x 7 days for BLE edema starting 01/07 despite Marcie hose, and edema better - CT head today with increased caliber lateral and 3rd ventricle from 11/29/2023, otherwise unchanged - saw NSGY today; RF EVD site clean. 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 MEDICATIONS: Current Outpatient Medications on File Prior to Visit Medication Sig cyanocobalamin (VITAMIN B-12) 1,000 mcg tab Take 1,000 mcg by mouth. glucagon 3 mg/actuation nasal spray (BAQSIMI) insulin lispro 100 unit/mL injection Inject 300 Units subcutaneously. Not currently on-- using insulin pump ondansetron orally disintegrating (ZOFRAN ODT) 4 mg disintegrating tablet Take 4 mg by mouth every 6 hours as needed. DULCOLAX, BISACODYL, RECTAL by RECTAL route once daily as needed. lisinopril (ZESTRIL) 40 mg tablet Take 40 mg by mouth once daily. acetaminophen (TYLENOL) 650 mg suppository 650 mg by RECTAL route every 4 hours as needed for pain or fever (specify temp.). dextrose 40 % gel Take 15 g by mouth as needed. insulin aspart U-100 (NOVOLOG) 100 unit/mL Use via insulin pump Max daily dose 100 units, DX: E10.65 acetaminophen (TYLENOL) 325 mg tablet 2 tablets by ORAL/FEEDING TUBE route every 6 hours as needed for pain. aspirin, enteric coated (ADULT LOW DOSE ASPIRIN) 81 mg EC tablet Start ASA 81 mg BID on 10/24 Patient should start on October 25, 2023. metoprolol succinate ER (TOPROL XL) 100 mg Take 1 tablet by mouth every 12 hours at 6 am and [address] (NOXAFIL) 100 mg tablet Take 3 tablets by mouth once daily. senna-docusate (SENNA-S) 8.6-50 mg per tablet 1 tablet by ORAL/FEEDING TUBE route two times a day. methocarbamol (ROBAXIN) 500 mg tablet 1 tablet by ORAL/FEEDING TUBE route four times a day as needed. [DISCONTINUED] lactobacillus rhamnosus (CULTURELLE) 10 billion cell capsule Take 1 capsule by mouthonce daily. PHYSICAL EXAM BP 131/53 Pulse 68 Temp 36.4 C (97.6 F) Resp 18 Wt 69.9 kg (154 lb) SpO2 97% BMI 24.87 kg/m SKIN: no rosacea H: right occipital 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 palpable along its track and nontender. EYES: PERRL EOMI no scleral icterus, no conjunctivitis ENT: no oral lesions NECK: no meningismus RESPIRATORY: clear to auscultation CARDIOVASCULAR: S1, S2, no murmurs, no gallops, no rubs, no edema ABDOMINAL: soft, non-distended, non-tender. Ileal conduit stoma R side, pink Insulin pump on Left. MUSCULOSKELETAL: 2-3+ LE edema. Stiffness R shoulder with decreased ROM NEUROLOGICAL: alert, oriented, speech appropriate CRANIAL NERVES: Pupils: OD Right: 3 mm Reactive OS Left: 3 mm Reactive II Visual taylor: not tested III, IV, EOM full V Facial sensation normal to light touch VII Normal strength VIII Normal bilaterally to finger rub IX, X Normal, midline palatal rise XI Symmetric shrug, and head rotation XII Tongue midline, mobile Motor: UE BICEPS TRICEPS DELTS Payment Rep R 5/5 5/5 4/5 5/5 L 5/5 5/5 5/5 5/5 LE Hip Flex Knee Flex Knee Extend Plantarflex Dorsiflex EHL R 1/5 3+/5 3+/5 2/5 3/5 not done L 2/5 3/5 1/5 3/5 3/5 2/5 Knee flexion about 45 degrees. Prominent surgical scar left tibia, healed Developed BLE spasms with ROM testing Sensory: light touch: decreased in high thoracic area on back (but able to perceive LT) Lateral thighs also with decreased LT (but able to correctly perceive) Reflexes: RIGHT LEFT Brachioradialis 2+ 2+ Biceps 2+ 2+ Triceps 2+ 2+ Knee 3+ 3+ Achilles 2+ not done Long Tract Signs: Babinski upgoing bilaterally Muscle tone: increased in LE No fasciculations or tremors noted. LABORATORIES Latest Ref Rng 11/05/2023 12/21/2023 WBC 3.70 - 11.00 k/uL 4.86 7.59 RBC 3.90 - 5.20 m/uL 4.06 4.03 Hemoglobin 11.5 - 15.5 g/dL 11.4 (L) 11.7 Hematocrit 36.0 - 46.0 % 36.2 37.5 MCV 80.0 - 100.0 fL 89.2 93.1 MCH 26.0 - 34.0 pg 28.1 29.0 MCHC 30.5 - 36.0 g/dL 31.5 31.2 RDW-CV 11.5 - 15.0 % 16.9 (H) 15.5 (H) Platelet Count 150 - 400 k/uL 359 331 MPV 9.0 - 12.7 fL 9.4 9.0 Neut% % 58.3 65.0 Abs Neut (ANC) 1.45 - 7.50 k/uL 2.83 4.93 Lymph% % 25.9 24.9 Abs Lymph 1.00 - 4.00 k/uL 1.26 1.89 Tama% % 9.9 6.7 Abs Tama <0.87 k/uL 0.48 0.51 Eosin% % 4.7 1.8 Abs Eosin <0.46 k/uL 0.23 0.14 Baso% % 1.0 0.4 Abs Baso <0.11 k/uL 0.05 0.03 Immature Gran % % 0.2 1.2 IMMATURE GRANS (ABS) <0.10 k/uL <0.03 0.09 NRBC /100 WBC 0.0 0.0 Absolute nRBC <0.01 k/uL <0.01 <0.01 DTYPE Auto Auto Protein, Total 6.3 - 8.0 g/dL 6.3 6.1 (L) Albumin 3.9 - 4.9 g/dL 3.8 (L) 3.8 (L) Calcium 8.5 - 10.2 mg/dL 9.2 8.9 Bilirubin, Total 0.2 - 1.3 mg/dL 0.3 0.2 Alkaline Phosphatase 34 - 123 U/L 161 (H) 201 (H) AST 13 - 35 U/L 16 19 ALT 7 - 38 U/L 10 32 Glucose 74 - 99 mg/dL 94 149 (H) BUN 7 - 21 mg/dL 19 25 (H) Creatinine 0.58 - 0.96 mg/dL 0.62 0.56 (L) Sodium 136 - 144 mmol/L 139 140 Potassium 3.7 - 5.1 mmol/L 4.3 3.9 Chloride 98 - 107 mmol/L 102 101 CO2 22 - 30 mmol/L 29 28 Anion Gap 8 - 15 mmol/L 8 11 eGFR >=60 mL/min/1.73m 104 107 Phosphorus 2.7 - 4.8 mg/dL 3.8 CRP <0.9 mg/dL <0.3 <0.3 Latest Reference Range & Units 06/28/22 14:58 07/02/22 12:42 10/15/23 10:59 CSF Tube Nbr Sterile Container Sterile Container Sterile Container Color, CSF Colorless Colorless Colorless Colorless Supernatant Color, CSF Colorless Not Indicated Not Indicated Not Indicated Clarity, CSF Clear Clear Clear Clear Supernatant Clarity, CSF Clear Not Indicated Not Indicated Not Indicated RBC, CSF 0 - 5 cells/uL 21 (H) 24 (H) 14 (H) Total Nucleated Cells, CSF 0 - 5 cells/uL 3 1 0 DIF TTL, CSF cells counted 100 100 7 Neut%, CSF 0 - 3 % 14 (H) 14 (H) Lymph%, CSF 50 - 90 % 98 (H) 80 71 Tama%, CSF 10 - 50 % 2 (L) 6 (L) Macro%, CSF <1 % 14 (H) Protein, CSF 15 - 45 mg/dL 36 5 (L) Glucose, CSF 40 - 70 mg/dL 106 (H) 58 80 (H) (H): Data is abnormally high (L): Data is abnormally low MICROBIOLOGY: CSF 10/15/23: Gram stain negative, routine culture negative Fungal culture negative, crypto antigen negative Nasal staph 10/10 neg 07/19/22 COVID PCR neg 07/08/22 CSF cryptococcal antigen negative, fungal culture negative 07/02 CSF culture 07/02 NG [place] fungal PCR PCR from biopsy tissue both negative ([facility]) 06/28 CSF (labelled lumbar puncture but is from EVD): MNGS negative 06/27 CSF (labelled lumbar puncture but is from EVD): No growth, Crypto antigen negative 06/26 OR cultures Dural/subdural itradural thoracic lesion Tissue: gram stain negative. NGTD Wound culture: gram stain negative. NGTD AFB smear no organsims. Fungal: smear: no fungus seen [place] bacterial, fungal and AFB PCRs: negative (entire [...] on the AFB or gram stain sections. RADIOLOGY CT head 01/10/24 Increased caliber of the lateral and third ventricles from 11/29/2023 with otherwise unchanged positioning of the ventriculostomy catheter. MRI C-T spine 10/18/23: Unchanged loculated arachnoid collection along the ventral lower cervical and upper thoracic spine with posterior cervicothoracic cord displacement, and not significantly changed from 05/09/2023. Persistent abnormal intramedullary cord signal abnormality immediately above and more prominently below the dorsally displaced cord extending to the mid T7 level, minimally improved from 05/09/2023, as detailed. Grossly stable diffuse abnormal leptomeningeal and scattered nodular pachymeningeal intradural enhancement throughout the cervical, thoracic, and upper lumbar spine, not significantly changed in appearance from 05/09/2023 although improved when compared with more remote studies. No new or progressive pathologic enhancement. Stable postoperative changes of T5-T6 dorsal decompression. Multilevel cervicothoracic spondylosis without high-grade spinal canal or neuroforaminal stenosis. Cervical Anatomic Variant: None. Assume 7 cervical vertebrae with counting from the craniocervical junction. Anatomic Thoracic/Lumbar Variant: None. L4-5 is considered the level of the iliac crest and assume there are 5 lumbar-type vertebrae. MRI brain, C-T-L spine 05/09/23: Interval decreased size of the peripherally enhancing collection in the interpeduncular, prepontine and cerebellopontine angle cisterns compared to the prior MRI. 05/09/23: T1 fl3d ax 18, 64 MRI 07/07/22, T1 fl3d, 41, 116 Near complete resolution of leptomeningeal enhancement involving the prepontine cistern and cerebellopontine angle cisterns, along the surface of the sabra and medulla compared to prior exam. No new or progressive pathologic enhancement. 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 Ventricular interstitial edema compared to the prior exam. Right frontal approach ventriculostomy shunt catheter is present. Interval improvement in diffuse abnormal leptomeningeal and pachymeningeal intradural enhancement throughout the cervical, thoracic and lumbar spine compared to the prior MRI 07/07/2022 with residual decreased patchy enhancement in the thoracic and lumbar spine. Patchy residual enhancement along the cauda equina nerve roots and ventral thecal sac in the lumbar spine, improved. Persistent abnormal intramedullary T2/STIR hyperintense signal in the thoracic cord with slight increased caudal extension from T2-T3 to T7-T8 compared to prior exam. Persistent deformity and expansion of the cord at these levels. Unchanged loculated arachnoid collection along the ventral lower cervical and upper thoracic spine with displacement of the cervical thoracic cord compared to prior exam. 05/09/23 SAG T1 ASIF, 7, 8 T2 tirm sag bone 8,8 07/07/22 SAG T1 TSSE 43, 8 Postoperative findings of dorsal decompression at T5-T6 with involution of the previously seen postoperative collection in the laminectomy defect and resolution of mass effect. Unchanged chronic compression fracture of T5 without bony retropulsion or canal stenosis. No significant canal or foraminal stenoses in the cervical, thoracic or lumbar spine. Cervical Anatomic Variant: None. Assume 7 cervical vertebrae with counting from the craniocervical junction. Anatomic Thoracic/Lumbar Variant: None. L4-5 is considered the level of the iliac crest and assume there are 5 lumbar-type vertebrae. ASSESSMENT: 57 year old woman with history [...] in DKA - 05/29/22 MRI brain from [facility] with leptomeningeal enhancement, communicating hydrocephalus - 06/07/22 MRI spine with diffuse LMD throughout spinal cord and cauda equina with loculated CSF in anterior thecal sac at C7-T3 with posterior displacement of cord and cord compression. T4-9 intramedullary hyperintensity suggesting cord edema due to compression superiorly - Course complicated by unsuccessful LP attempts at [facility] then transferred to [facility] - s/p cisternal tap 06/16/22 with limited [...] with fungal hyphae confirmed on multiple sections. [place] PCR and cultures all negative, including the tissue block in its entirety sent for universal fungal PCR and negative - CSF 06/28/22 negative on Next Gen sequencing - posaconazole started 06/29/22 - s/p 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 on 07/10.and improving MS since then. - small subdural hygromas over frontal convexities on CT 08/16/22, shunt settings adjusted - facial rash in September 2022, mainly the malar area, a few spots on the forehead. Dx'd with rosacea by PCP and started on metronidazole gel, improved - sacral area ulcer, saw wound care at [facility]. Rx'd with medical honey gel and silicone [...] patchy sensory loss in thighs - near falls - MRI 05/10/23 with significant improvement in the extensive leptomeningeal enhancement from the brain stem to the cauda equina. The FLAIR hyperintensity involving multiple cranial nerves had resolved. Still some areas of loculation in the prepontine area and in ventral thoracic area, but diffuse lepto and some pachymeningeal enhancement throughout was better. 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 NSGY maintained the externalized shuntat the clavicle via an EVD and was the valve was adjusted from 7 to 8 to see if the patient would continue to remain shunt independent for a prolonged course. Following seven days of a clamped EVD, patient was deemed shunt independent and the VPS was removed by Dr. Figueroa on 07/09. Had ureteral stents, later removed - new onset bilateral LE cramps and spasms, starting 1 week postop removal of VPS. Cramps starting from toes and feet and ascending to thighs and groin, uncontrolled dorsiflexion in feet, knee and hip flexion. Every 2-3 days initially then multiple times daily - CT head 07/2023 with increased ventricles Neurology eval 09/20/23: spasticity and triple flexion in BLE in addition to weakness and hyperreflexia. Findings are concerning for worsening hydrocephalus especially with CTH showing increased ventricles - suffered a fall 09/2023 after an episode of leg spasms. Admitted to local hospital and dx'd with comminuted fracture of Left distal tibial bone. From there, she was transferred to [facility] She underwent intramedullary nail placement to the Left tibia on 10/08/2023. She also had a CT BRAIN WO CON on 10/08 with evidence of interval increased dilation of the ventricular systems suggestive communicating hydrocephalus with mild transependymal edema Transferred to [facility]. Seen by ID Dr Dominic Pablo for ID clearance for VPS. Dr Reagan saeed had no evidence of ongoing fungal infection. S/P [facility] shunt (right occipital) 10/15/2023 (Dr Oconnor),Certas valve 6. CSF sent from OR 10/15/23 showed 0 TNC, RBC 14, pro 5, glucose 80. Cryptococcal antigen, fungal cultures negative to date. MRI C-T spine 10/18/23 showed unchanged loculated arachnoid collection along ventral lower cervical and upper thoracic spine, with cord displacement, no change from 05/09/23. Persistent abnormal intrameduallary cord signal immediately above and below displaced cord, down to T7, minimally improved. Stable LME and pachymeningeal intradural enhancement throughout the C-T and upper lumbar spine, no change. Postop changes T5-6 decompression. D/C'd to [facility] She was continued on posaconazole 300 mg/d. Seen by ID Dr Domingo on 10/26/23. Tolerating posaconazole, stable LFTs, continue same and FU with ID at [facility]. Ongoing leg spasms, gabapentin and Robaxin not working. Labs negative including Mg, Phos, Ca Has had ongoing bilateral leg spasms since 07/2023, starting 1 week postop removal of VPS. Not better after placement of VA shunt 10/15/23. She had benign CSF with no pleocytosis 10/15/23. Fungal CSF culture again negative, with 0 TNCs in CSF MRI 10/18/23 showed no change in the 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 There is still persistent abnormal intrameduallary cord signal immediately above and below displaced cord, down to T7 but this is chronic for many months and unchanged. Similarly she has leptomeningeal enhancement and some intradural enhancement throughout the C-T and upper lumbar spine, but this also is now chronic and unchanged on recent MRI. 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 The reason why she became much worse in 07/2023 a few days after the 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 was removed in 06/2023 remains unclear-- she did not have the daily, disabling LE spasms prior to this, and her MRIs have been unchanged. She has improved some in past 3 weeks, with more LE strength, walking with parallel bars and standing is stable Still with intermittent painful spasms in the LE and going for Botox tomorrow The BLE edema is better after D/C gabapentin and a few days of lasix; less painful and not interfering as much with PT/OT Tolerating the posaconazole and will continue this; still had diffuse spinal LME on last MRI 10/2023; not much differen from MRI 04/2023 but definitely better c/w early MRI scans PLAN: - continue posaconazole, check trough next visit - isavuconazole is an option also (given some degree of persistent leptomeningeal enhancement) - plan for Botox tomorrow - FU with me in 2 months Jamie Mccarty MD SERVICE DATE: January 10, 2024 I spent a total of 60 minutes on the date of the service which included preparing to see the patient, review of multiple MRI scans, [id number] patient care, completing clinical documentation, obtaining and/or reviewing separately obtained history, performing a medically appropriate examination, counseling and educating the patient/family/caregiver, ordering medications, tests, or procedures, independently interpreting results (not separately reported), communicating results to the patient/family/caregiver, and care coordination (not separately reported) documented in this [facility]The [facility]09-26-[facility] History of Present illness Narrative* Dilcia Carl APRN.STABLE HELPER - 01/10/2024 2:43 PM EDT Images from the original note were not included. Connected Care Unit Progress Note Patient Name: Chikis Tobar Patient Facility: [facility] Admit Date 11/09/23 Level of Care: Skilled SNF Attending: Amelia Parisi D.O. Service Date: 01/10/2024 Code Status: Chief Complaint: Evaluation regarding hydrocephalus, meningitis ASSESSMENT AND PLAN ASSESSMENT/PLAN: 1. 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 denies SHANNON, dizziness or double/blurred vision at this time 11/15: No change in condition. Pt. participating in PT/OT, eating and drinking appropriately. No bowel or bladder issues. afebrile, non-toxic appearing. Pt.c/o BLE muscle cramps, Mag 1.9, muscle relaxer changed to methocarbamol 750mg po QID. Pt. has f/u with MD today to possibly hold anti-fungal due to muscle spasms that may be 2/2 anti-fungal. hemodynamically stable. No acute issues at this time. 11/19: No change in condition. Pt. participating in PT/OT as tolerated with BLE muscle spasms. Pt. states there is slight improvement with change in muscle relaxer and the muscle spasms. will attempt medrol dose pack therapy at this time and monitor blood glucose closely. eating and drinking appropriately. No bowel or bladder issues. Labs reviewed, hemodynamically stable. No acute issues at this time. 11/21: Hemodynamically stable, eating and drinking appropriately. Labs reviewed. participating in pt/ot, afebrile, non-toxic appearing. pt. refusing medrol dose pack at this time, pt. wants to wait onemore week of cessation of anti-fungal. no bowel or bladder issues at this time. No acute issues. 11/28: No change in condition. Pt. participating in PT/OT, eating and drinking appropriately. No bowel or bladder issues. afebrile, non-toxic appearing. pt. c/o continued BLE muscle spasms with pain, current regimen non-effective. will start medrol dose pack at this time, hemodynamically stable. No acute issues at this time. 12/05: Hemodynamically stable, eating and drinking appropriately. participating in pt/ot, denies pain at this time, afebrile, non-toxic appearing. pt. had f/u with neurosurgery with recommendations tochange muscle relaxer and f/u with neuro in [address] scan brain. no bowel or bladder issues at this time. No acute issues. 12/10: No change in condition. Pt. participating in PT/OT, eating and drinking appropriately. No bowel or bladder issues. afebrile, non-toxic appearing, Denies Cp, SOB, heart palpitations or dizziness. hemodynamically stable. No acute issues at this time. 12/12: Hemodynamically stable, eating and drinking appropriately. participating in pt/ot, denies pain at this time, afebrile, non-toxic appearing. pt. c/o continues BLE muscle spasms with pain, will start a prednisone taper at this time. no bowel or bladder issues at this time. No acute issues. 12/17: eating and drinking appropriately. Labs reviewed, BUN 39, Cr 0.6, GFR 103, CBC without leukocytosis. participating in pt/ot, pain improved with steroid taper, afebrile, non-toxic appearing. no bowel or bladder issues at this time. No acute issues. 12/19: Hemodynamically stable, eating and drinking appropriately. participating in pt/ot, pt. states the pain is improving with steroid use. Denies Cp, SOB, heart palpitations or dizziness. afebrile, non-toxic appearing. no bowel or bladder issues at this time. No acute issues. 12/24: No change in condition. Pt. participating in PT/OT with sight improvement, eating and drinking appropriately. No bowel or bladder issues. Labs reviewed, BUN 23, Cr 0.6, GFR 103, CBC without leukocytosis. Pt. denies SHANNON, dizziness or double/blurred vision. hemodynamically stable. No acute issues at this time. 12/26: Hemodynamically stable, eating and drinking appropriately. participating in PT/OT as tolerated with improvement. no bowel or bladder issues at this time. Pain improving to BLE. No acute issues. 01/02: No change in condition. Pt. participating in PT/OT with improvement, pain controlled at this time. eating and drinking appropriately. No bowel or bladder issues. hemodynamically stable. No acute issues at this time. 01/07: Hemodynamically stable, eating and drinking appropriately. Labs reviewed, BUN 21, Cr 0.5, [id number]. Non-pitting BLE edema present, marcie hose non-effective, lasix 20mg po daily x 7 days started, Denies Cp, SOB, heart palpitations or dizziness, no hypoxia reported. Denies SHANNON, dizziness or double/blurred vision. no bowel or bladder issues at this time. No acute issues. 01/09: No change in condition. Pt. participating in PT/OT, eating and drinking appropriately. No bowel or bladder issues. Labs reviewed, afebrile, non-toxic appearing, pt. has f/u today with imaging. BLE edema improved with lasix therapy., Denies Cp, SOB, heart palpitations or dizziness. hemodynamically stable. No acute issues at this time. - lasix 20mg po daily x 7 days (01/14) - prednisone taper, 60, 50, 40, 30, 20, 10, 5 then done - continue ASA 81mg po BID for DVT prophylaxis - continue pain control and muscle relaxer - continue posaconazole - continue to monitor CBC/CMP - continue to monitor Dilcia Carl Appointments for Next 60 Days Date Time Provider Location Dept Phone 01/10/2024 10:20 AM [facility] 01/10/2024 11:00 AM AASHISH MONGE [facility] [phone] 01/10/2024 12:00 PM SHARAN DOMINGUEZ [facility] [phone] 01/10/2024 2:[address] 2 MAIN QB (I-STAT) Mn [facility] [phone] 01/10/2024 3:00 PM MARLENE CORDERO [facility] [phone] 01/10/2024 3:30 PM JAMIE MCCARTY [facility] [phone] 01/11/2024 2:30 PM NOEL DANIELS [facility] [phone] 01/11/2024 3:15 PM NOEL DANIELS [facility] [phone] 02/06/2024 11:00 AM RAINA ONELIAJASMIN [facility] [phone] HPI: (Per discharge summary) 58-year-old female with PMHx signficant for T1DM cb/ DKA, urothelial carcinoma of the bladder s/p radical cystectomy and ileal conduit c/b SBO (Dec 2021), HTN, chronic sinusitis, asthma, persistent encephalopathy and hydrocephalus. 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 She was followed by ID at [facility] and was on posaconazole. She is s/p shunt externalization at [facility] (06/27/23) during abdominal surgery for SBO and eventual VPS explantation (07/10/23). She was o riginally scheduled for shunt reinternalization with Dr. Oconnor on 11/20/23. She fell due to leg spasms and presented to OSH ED and admitted on 10/07/23. Found to have L tibial fx s/p intramedullary nailDr. Randallri at [facility] (10/08/23). She was then [place] [facility] [place]. She is s/p VPS reimplantation by Dr. Oconnor and Dr. Evans on 10/14. Intraoperative CSF cultures without growth. Plan to continue posaconazole at least through end of this year. She isto start asa bid on 10/24 for dvt ppx. Seen by [facility] for wounds as below - Coccyx : healed. -Left posterior heel: POA -Left anterior foot : Deep Tissue Pressure Injury, acquired While in the ARU, pt received physical therapy for range of motion, transfer training, endurance/ balance, fall prevention, and gait training with appropriate assistive devices, occupational therapy for activity of daily living/equipment/ functional transfer evaluation and training, and speech thera py for language evaluation and speech re-education. Team conferences were held to monitor progress and tailor program to patients needs. Patient had appropriate pain management, bowel management, sleep management, GI and DVT prophylaxis. Pt was stable throughout ARU course without major medical comp lication. Pt participated in all therapies and although with significant gradual improvement, would benefit from continuing skilled therapies and nursing at SNF prior to returning home. 10/23 stop robaxin, add zanaflex 4mg at bedtime and 2mg tid prn 10/27 zanaflex scheduled qid 10/28 d/w IM get f/u head CT d/t unresolved spasticity with pain 10/30 Shunt adjusted by Neurosurg from to 7 11/04 add gabapentin 300mg at bedtime Interval HPI: Pt. is alert, calm and cooperative during ROS and physical exam. There are no concerns for bowel issues. ileal conduit without complications, appropriate output without sediment or hematuria. Pt. is eating and drinking fluids appropriately. walker boot in place, denies pain at this time. pt. denies SHANNON, dizziness or double/blurred vision at this time. All labs and vital signs were reviewed. Pt. is participating in PT/OT without complications. Per nursing staff there are no acute changes to be addressed at this time. 11/15: No change in condition. Pt. participating in PT/OT, eating and drinking appropriately. No bowel or bladder issues. afebrile, non-toxic appearing. Pt.c/o BLE muscle cramps, Mag 1.9, muscle relaxer changed to methocarbamol 750mg po QID. Pt. has f/u with MD today to possibly hold anti-fungal due to muscle spasms that may be 2/2 anti-fungal. hemodynamically stable. No acute issues at this time. 11/19: No change in condition. Pt. participating in PT/OT as tolerated with BLE muscle spasms. Pt. states there is slight improvement with change in muscle relaxer and the muscle spasms. will attempt medrol dose pack therapy at this time and monitor blood glucose closely. eating and drinking appropriately. No bowel or bladder issues. Labs reviewed, hemodynamically stable. No acute issues at this time. 11/21: Hemodynamically stable, eating and drinking appropriately. Labs reviewed. participating in pt/ot, afebrile, non-toxic appearing. pt. refusing medrol dose pack at this time, pt. wants to wait onemore week of cessation of anti-fungal. no bowel or bladder issues at this time. No acute issues. 11/28: No change in condition. Pt. participating in PT/OT, eating and drinking appropriately. No bowel or bladder issues. afebrile, non-toxic appearing. pt. c/o continued BLE muscle spasms with pain, current regimen non-effective. will start medrol dose pack at this time, hemodynamically stable. No acute issues at this time. 12/05: Hemodynamically stable, eating and drinking appropriately. participating in pt/ot, denies pain at this time, afebrile, non-toxic appearing. pt. had f/u with neurosurgery with recommendations tochange muscle relaxer and f/u with neuro in [address] scan brain. no bowel or bladder issues at this time. No acute issues. 12/10: No change in condition. Pt. participating in PT/OT, eating and drinking appropriately. No bowel or bladder issues. afebrile, non-toxic appearing, Denies Cp, SOB, heart palpitations or dizziness. hemodynamically stable. No acute issues at this time. 12/12: Hemodynamically stable, eating and drinking appropriately. participating in pt/ot, denies pain at this time, afebrile, non-toxic appearing. pt. c/o continues BLE muscle spasms with pain, will start a prednisone taper at this time. no bowel or bladder issues at this time. No acute issues. 12/17: BP soft without dizziness, currently taking metoprolol BID, was taking once daily at home. Metoprolol decreased to once daily in am vs. BID. eating and drinking appropriately. Labs reviewed, BUN39, Cr 0.6, GFR 103, CBC without leukocytosis. participating in pt/ot, pain improved with steroid taper, afebrile, non-toxic appearing. no bowel or bladder issues at this time. No acute issues. 12/19: Hemodynamically stable, eating and drinking appropriately. participating in pt/ot, pt. states the pain is improving with steroid use. Denies Cp, SOB, heart palpitations or dizziness. afebrile, non-toxic appearing. no bowel or bladder issues at this time. No acute issues. 12/24: No change in condition. Pt. participating in PT/OT with sight improvement, eating and drinking appropriately. No bowel or bladder issues. Labs reviewed, BUN 23, Cr 0.6, GFR 103, CBC without leukocytosis. Pt. denies SHANNON, dizziness or double/blurred vision. hemodynamically stable. No acute issues at this time. 12/26: Hemodynamically stable, eating and drinking appropriately. participating in PT/OT as tolerated with improvement. no bowel or bladder issues at this time. Pain improving to BLE. No acute issues. 01/02: No change in condition. Pt. participating in PT/OT with improvement, pain controlled at this time. eating and drinking appropriately. No bowel or bladder issues. hemodynamically stable. No acute issues at this time. 01/07: Hemodynamically stable, eating and drinking appropriately. Labs reviewed, BUN 21, Cr 0.5, [id number]. Non-pitting BLE edema present, marcie hose non-effective, lasix 20mg po daily x 7 days started, Denies Cp, SOB, heart palpitations or dizziness, no hypoxia reported. Denies SHANNON, dizziness or double/blurred vision. no bowel or bladder issues at this time. No acute issues. 01/09: No change in condition. Pt. participating in PT/OT, eating and drinking appropriately. No bowel or bladder issues. Labs reviewed, afebrile, non-toxic appearing, pt. has f/u today with imaging. BLE edema improved with lasix therapy., Denies Cp, SOB, heart palpitations or dizziness. hemodynamically stable. No acute issues at this time. PAST MEDICAL HISTORY Diagnosis Date Asthma 02/16/2021 Bladder cancer (HCC) 02/2021 urothelial carcinoma Diabetes mellitus type 1 (HCC) 04/13/2021 diagnosed at age 6 HTN (hypertension) 02/16/2021 Neoplasm of bladder 02/16/2021 Obesity 02/16/2021 Palpitations 02/16/2021 SUBJECTIVE: Review of Systems Constitutional: Positive for activity change and fatigue. Negative for fever. Respiratory: Negative. Cardiovascular: Positive for leg swelling. Gastrointestinal: Negative. Musculoskeletal: Positive for arthralgias. Neurological: Positive for weakness. Psychiatric/Behavioral: Negative. No reports of falls/injuries, changes in cognition/behaviors, or any uncontrolled pain exacerbations. Medications: Medications listed in [facility] during SNF admission may not be current. Refer to facility record. Patient records, current medications, most recent labs, family/social history (unchanged) Reviewed.Refer to facility records. OBJECTIVE: Labs/diagnostics: reviewed Physical Exam: Physical Exam Constitutional: General: She is not in acute distress. Appearance: She is not toxic-appearing. HENT: Mouth/Throat: Mouth: Mucous membranes are moist. Pharynx: Oropharynx is clear. Eyes: Conjunctiva/sclera: Conjunctivae normal. Cardiovascular: Rate and Rhythm: Normal rate. Pulses: Normal pulses. Heart sounds: Normal heart sounds. Pulmonary: Effort: Pulmonary effort is normal. Breath sounds: Normal breath sounds. Abdominal: General: Bowel sounds are normal. Palpations: Abdomen is soft. Musculoskeletal: Right lower leg: Edema present. Left lower leg: Edema present. Skin: General: Skin is warm and dry. Capillary Refill: Capillary refill takes less than 2 seconds. Neurological: Mental Status: She is alert. Mental status is at baseline. Motor: Weakness present. Psychiatric: Mood and Affect: Mood normal. Behavior: Behavior normal. Some elements from the note on 01/08/24 have not changed and have been copied from that note. Any changes in condition have been addressed and charted accordingly. POC discussed with appropriate parties and nursing staff. Electronically signed by Dilcia Carl APRN.MARIS documented in this encounterThe [facility]09-26-[facility]24 History of Present illness Narrative* Marlene Cordero PA-C - 01/10/2024 2:30 PM EDT CC: 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 f/u HPI: Mrs Chikis Tobar comes to clinic today for surgical f/u. 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 Chikis's shunt was previously removed at [facility] on 07/10/23 following surgery for bowel obstruction followed by worsening symptoms. She was last seen on 11/29/[address] brain showed further reduction in ventricle size and small bilateral subdural hygromas. At last visit her Certas valve wasadjusted from 7 to 8. Following adjustment she saw very mild worsening of her balance. Since last visit she has been working more with PT at rehab and feels her legs are getting stronger. She is seeing physical medicine and is scheduled for botox injections tomorrow. Continues to follow with ID. Focused Exam: Right frontal shunt site examined, [...] XII: Tongue protrusion full and midline Motor: limited movement in lower extremities with increased tone. Wheel chair dependent Impression: charity Tobar is a pleasant 58 year old female with a history of communicating hydrocephalus. HerVP shunt was removed on 07/10/23 following laparotomy for bowel obstruction followed by worsening symptoms. Her shunt was re inserted on 10/11/23 with Certas valve. At last visit her Certas valve was adjusted from 7 to 8 due to further reduction in ventricle size and small bilateral subdural hygromas. Since last visit Chikis admits slow improvement in her BLE strength. She is working with PT at rehab and able to walk on parallel bar with assistance. Trujillo catheter in place with no cognitive changes. Continues to work with physical medicine, ID and neurology. CT brain reviewed which shows previo us slit like ventricles have relaxed and hygroma resolved, 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 catheter in place and no acute abnormalities. Discussed in detail possible benefits and risks of 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 adjustment. After discussion with Chikis, she would like to undergo shunt adjustment. Certas valve shunt was adjusted from 8to 7. We discussed in detail the warning signs and symptoms of overdrainage as well as when to contact our office or present to the ED if concern is severe. Follow up in 1-[address] brain Plan: Shunt information Shunt type: Certas Initial settin New settin Marlene Cordero PA-C documented in this encounterThe [facility] System09-26-2024 History of Present illness Narrative* Michelle Wood RT(Randy) - 01/10/2024 2:00 PM EDT Radiology Service Progress Note PATIENT NAME: Chikis Tobar DATE OF SERVICE: January 10, 2024 TIME: 1:02 PM PATIENT IDENTITY VERIFICATION COMPLETED USING TWO (2) IDENTIFIERS: Name and Date of confirmedby patient verbally. FALL SCREENING: Has the patient had 2 falls in the last year or 1 fall with injury or currently using an Ambulatory Assistive Device (Walker, Cane, Wheelchair, Crutches, etc.)? Yes, Patient High Riskfor Falls What interventions were put in place to prevent falls during this visit? Offered Assistance with Transfers/Clothing PATIENT GENDER DATA: Female. status: : No status: NO. PATIENT RELEVANT IMPLANT DATA REVIEWED: Yes PATIENT PRESENTS WITH AN IMPLANTABLE OR ATTACHED AIRCRAFT DESIGN ENGINEER: Yes [facility] RADIOLOGY DEPARTMENT: CT; Exam(s) Completed: Brain PERIPHERAL IV DATA: Not applicable SIGNED BY: RT Sejal(Randy) January 10, 2024 1:02 PM documented in this encounterThe [facility] System09-26-2024 History of Present illness Narrative* Aashish Monge PA-C - 01/10/2024 11:01 AM EDT Orthopaedic Surgery Clinic Established Visit Patient Date of : 1965 Date of Surgery: 10/08/23 Procedure Performed: Left tibia IMN History: Patient presents to clinic 13 weeks postoperatively from the above procedure. She is doingwell today. She states she is working with PT and has been able to stand at the parallel bars and work on her balance. She is still battling with muscle spasms. Denies pain to the left leg. Denies numbness or tingling. She is seeing wound care regarding left heel wound and states they have said it is getting smaller. Physical Exam: General: No acute distress, alert and oriented x3 and Awake and alert Left Lower Extremity: Skin:Incision well healed without any evidence of infection. No erythema, drainage or expressible discharge, heel wound dressed Vascular: Foot warm and well perfused with brisk capillary refill and Palpable DP/PT pulse Neuro: Sensation intact in saphenous/sural/deep peroneal/superficial peroneal/tibial nerve distribution Musculoskeletal: No tenderness to palpation over fracture Imaging: I personally reviewed xrays of left tib/fib and discussed with patient: Demonstrate maintained fracture alignment with no interval displacement, intact hardware Assessment and Plan: Patient is a 58 year old female 13 weeks s/p Left tibia IMN -Patient is doing well postoperatively -Patient did not require a refill of pain medications today -Continue working on balance and strength with PT -Follow up with neuro regarding muscle spasms -Weightbearing: Weight bearing as tolerated , Range of motion as tolerated, and Strengthening as tolerated -Follow up: as needed with x-rays Aashish Monge PA-C documented in this encounterThe [facility]09-26-2024 History of Present illness Narrative* Sharan Dominguez APRN.CNP - 01/10/2024 10:59 AM EDT Images from the original note were not included. [facility] PROVID[facility] PROGRAM - FOLLOW UP VISIT PATIENT NAME: Chikis Tobar SERVICE DATE: 01/10/[address] PL[address] OF SERVICE FOR THIS VISIT[facility] Name: [facility] Level of Care: Skilled Asked to see patient at the request of and in collaboration with Dr. Parisi for my opinion regardingpressure injury of the left heel. Requested to see patient today for wound assessment and treatment evaluation CHIEF COMPLAINT: Follow up wound care evaluation of pressure injury of the left heel. INTERVAL HISTORY Information provided by: Chart review and Patient 58 year old y/o female who presents with a wound Location: Left posterior heel Onset: POA Aggravating factors: Diabetes mellitus, Mechanical devices related, Positioning, and Pressure Wound etiology: Pressure Associated pain with wound: Yes Relieving factors for wound pain: Positioning Treatments: Current: Betadine, ABD, kerlix Remainder unchanged Future Appointments Date Time Provider Department Center 01/10/2024 12:00 PM Sharan Dominguez APRN.STABLE HELPER [facility] 01/10/2024 2:[address] 2 MAIN QB (I-STAT) RCTMN Mn Q Bldg 01/10/2024 3:00 PM Marlene Cordero PA-C NREUS2 Mn S Bldg 01/10/2024 3:30 PM Jamie cMcarty MD INFDMN Mn G Bldg 01/11/2024 2:30 PM Noel Daniels MD Counts include 234 beds at the [facility] F 01/11/2024 3:15 PM Noel Daniels MD Counts include 234 beds at the [facility] F 02/06/2024 11:00 AM Ruddy Gupta MD ENDOAV Rej 03/21/2024 11:00 AM Reggie Butler MD NREUS2 Mn S Bldg 09/16/2024 10:45 AM LAB MAIN Q2-1 LBQ2-1 Mn Q Bldg 09/16/2024 11:[address] 2 MAIN QB (I-STAT) RCTMN Mn Q Bldg IMPRESSION/RECOMMENDATIONS The patient's age, altered mobility and other co morbidities are likely to impact wound and skin integrity Additional impediments to healing Diabetic: Yes Anticoagulation: Aspirin Antibiotics: No Steroids: Prednisone (L89.620) Pressure injury of left heel, unstageable (HCC) (primary encounter diagnosis) Comment: Decreased measurements noted to unstageable pressure injury of the posterior aspect of theleft heel at today's visit. Wound remains comprised of dry, firm eschar without lifting or drainagenoted. Periwound remains dry and intact with some blanchable erythema. Will plan to continue betadine to the area. DP and PT pulses +2. Remains somewhat tender on exam. HPI: Patient s/p left tibia fracture with use of walking boot post-operatively, subsequent pressureinjury d/t mechanical device. Patient given OK per orthopedics to leave boot off to aide in wound healing and pressure reduction. Plan: -Monitor for any s/s of infection- notify STABLE HELPER/MD of any pertinent findings -Wound care orders as follows for bacteriostatic properties: Wound Care Order: - Cleanse wound and periwound skin with normal saline and gauze, gently pat dry. - Apply betadine liberally to wound and periwound - Cover with ABD and kerlix - Change dressing daily and PRN. (R53.81) Physical deconditioning Comment: Patient requires assistance with ADL's and mobility d/t recent left tibia fracture, hydrocephalus. Working with PT and OT. Plan: - Turn and reposition frequently - Frequent weight shifts when seated - Nutritional support as appropriate FOLLOW UP PLAN Weekly as needed SUBJECTIVE REVIEW: Information provided by: Patient and Facility nurse Review of Systems Constitutional: Negative for chills, diaphoresis and fever. HENT: Negative. Respiratory: Negative. Cardiovascular: Negative. Gastrointestinal: Negative. Genitourinary: + urostomy Musculoskeletal: Positive for arthralgias and gait problem. Skin: Positive for wound. Neurological: Positive for weakness (Generalized). Psychiatric/Behavioral: Negative Nutrition DIET: NCS (No Concentrated Sweets) diet, Regular texture, Regular/Thin consistency SUPPLEMENTS: Anuel APPETITE: fair MEDICATION REVIEW Medications listed in Epic during SNF admission may not be current. Refer to facility record Medications Reviewed per facility list done: Yes Allergies reviewed per facility list Prior chart notes reviewed SOCIAL HISTORY Tobacco Use Past: No Current: No OBJECTIVE Physical Exam Vitals and nursing note reviewed. Constitutional: General: She is not in acute distress. Appearance: She is well-groomed and normal weight. She is not ill-appearing or toxic-appearing. Comments: Pleasant middle aged female sitting upright in wheelchair, calm and cooperative. HENT: Head: Normocephalic and atraumatic. Nose: No congestion. Mouth/Throat: Mouth: Mucous membranes are moist. Pharynx: Oropharynx is clear. Cardiovascular: Rate and Rhythm: Normal rate. Pulses: Normal pulses. Pulmonary: Effort: Pulmonary effort is normal. No respiratory distress. Abdominal: General: Abdomen is flat. There is no distension. Palpations: Abdomen is soft. Musculoskeletal: General: Tenderness (LLE). Right lower leg: +1 edema. Left lower leg: +1 edema. Skin: General: Skin is warm and dry. Findings: Wound (See HPI) present. Neurological: Mental Status: She is alert and oriented to person, place, and time. Motor: Weakness present. Gait: Gait abnormal. Psychiatric: Attention and Perception: Attention normal. Mood and Affect: Mood and affect normal. Speech: Speech normal. Behavior: Behavior normal. Behavior is cooperative. WOUND ASSESSMENT Location: Left Posterior Heel Type: pressure injury Stage: Unstageable Exposed structure:None Progress: Stable- decreased measurements Wound measurements (cm): 2.3 x 1.8 x UTD Full thickness: N/A Tunneling/undermining: none Wound tissue color: 100% firm, dry eschar Periwound tissue: dry, intact, blanchable erythema Drainage: none Drainage odor: None ANCILLARY DATA REVIEWED Managed by facility. Counseled on wound prognosis and plan of care, Counseled patient, family or facility staff on woundhealing process. Counseled on treatment options, and Written wound care instructions left in facility. Visit billing based on time: No, visit will not be billed on time? I spent a total of 20 minutes on the date of the service which included preparing to see the patient, [id number] patient care, completing clinical documentation, reviewing separately obtained history, performing a medically appropriate examination, counseling and educating the patient/family/caregiver, and communicating with other HCPs (not separately reported). Joint visit made with Daniel Sandoval LPN. Plan of Care discussed with facility nursing staff, patient, and referring provider. Wound care was performed during visit. All documentation from previous visit of 12/27/2023 was copied and pasted, documentation has been reviewed and edited as necessary for today's visit on 01/10/2024. SIGNATURE: Sharan Dominguez APRN.CNP,GONZALEZ PATIENT NAME: Chikis Tobar DATE: 01/10/2024 OFFICE #: [phone] PAGER/CELL: [phone] documented in this encounterThe [facility]09-26-2024 History of Present illness Narrative* Reed Suh RT(R) - 01/10/2024 10:20 AM EDT Radiology Service Progress Note PATIENT NAME: Chikis Tobar DATE OF SERVICE: January 10, 2024 TIME: 10:26 AM PATIENT IDENTITY VERIFICATION COMPLETED USING TWO (2) IDENTIFIERS: Name and Date of confirmedby patient verbally. FALL SCREENING: Has the patient had 2 falls in the last year or 1 fall with injury or currently using an Ambulatory Assistive Device (Walker, Cane, Wheelchair, Crutches, etc.)? [facility] GENDER DATA: Male PATIENT RELEVANT IMPLANT DATA REVIEWED: Not Applicable PATIENT PRESENTS WITH AN IMPLANTABLE OR ATTACHED AIRCRAFT DESIGN ENGINEER: No RADIOLOGY DEPARTMENT: General X-ray: Exam(s) Completed: Lower Extremity X- Ray(s): Tibia Fibula, Left PERIPHERAL IV DATA: Not applicable SIGNED BY: RT Ирина(R) January 10, 2024 10:26 AM documented in this encounterThe [facility]09-24-2024 History of Present illness Narrative* Dilcia Carl APRN.CNP - 01/08/2024 2:33 PM EDT Images from the original note were not included. Connected Care Unit Progress Note Patient Name: Chikis Tobar Patient Facility: [facility] Admit Date 11/09/23 Level of Care: Skilled SNF Attending: Amelia Parisi D.O. Service Date: 01/08/2024 Code Status: Chief Complaint: Evaluation regarding hydrocephalus, meningitis ASSESSMENT AND PLAN ASSESSMENT/PLAN: 1. 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 denies SHANNON, dizziness or double/blurred vision at this time 11/15: No change in condition. Pt. participating in PT/OT, eating and drinking appropriately. No bowel or bladder issues. afebrile, non-toxic appearing. Pt.c/o BLE muscle cramps, Mag 1.9, muscle relaxer changed to methocarbamol 750mg po QID. Pt. has f/u with MD today to possibly hold anti-fungal due to muscle spasms that may be 2/2 anti-fungal. hemodynamically stable. No acute issues at this time. 11/19: No change in condition. Pt. participating in PT/OT as tolerated with BLE muscle spasms. Pt. states there is slight improvement with change in muscle relaxer and the muscle spasms. will attempt medrol dose pack therapy at this time and monitor blood glucose closely. eating and drinking appropriately. No bowel or bladder issues. Labs reviewed, hemodynamically stable. No acute issues at this time. 11/21: Hemodynamically stable, eating and drinking appropriately. Labs reviewed. participating in pt/ot, afebrile, non-toxic appearing. pt. refusing medrol dose pack at this time, pt. wants to wait onemore week of cessation of anti-fungal. no bowel or bladder issues at this time. No acute issues. 11/28: No change in condition. Pt. participating in PT/OT, eating and drinking appropriately. No bowel or bladder issues. afebrile, non-toxic appearing. pt. c/o continued BLE muscle spasms with pain, current regimen non-effective. will start medrol dose pack at this time, hemodynamically stable. No acute issues at this time. 12/05: Hemodynamically stable, eating and drinking appropriately. participating in pt/ot, denies pain at this time, afebrile, non-toxic appearing. pt. had f/u with neurosurgery with recommendations tochange muscle relaxer and f/u with neuro in [address] scan brain. no bowel or bladder issues at this time. No acute issues. 12/10: No change in condition. Pt. participating in PT/OT, eating and drinking appropriately. No bowel or bladder issues. afebrile, non-toxic appearing, Denies Cp, SOB, heart palpitations or dizziness. hemodynamically stable. No acute issues at this time. 12/12: Hemodynamically stable, eating and drinking appropriately. participating in pt/ot, denies pain at this time, afebrile, non-toxic appearing. pt. c/o continues BLE muscle spasms with pain, will start a prednisone taper at this time. no bowel or bladder issues at this time. No acute issues. 12/17: eating and drinking appropriately. Labs reviewed, BUN 39, Cr 0.6, GFR 103, CBC without leukocytosis. participating in pt/ot, pain improved with steroid taper, afebrile, non-toxic appearing. no bowel or bladder issues at this time. No acute issues. 12/19: Hemodynamically stable, eating and drinking appropriately. participating in pt/ot, pt. states the pain is improving with steroid use. Denies Cp, SOB, heart palpitations or dizziness. afebrile, non-toxic appearing. no bowel or bladder issues at this time. No acute issues. 12/24: No change in condition. Pt. participating in PT/OT with sight improvement, eating and drinking appropriately. No bowel or bladder issues. Labs reviewed, BUN 23, Cr 0.6, GFR 103, CBC without leukocytosis. Pt. denies SHANNON, dizziness or double/blurred vision. hemodynamically stable. No acute issues at this time. 12/26: Hemodynamically stable, eating and drinking appropriately. participating in PT/OT as tolerated with improvement. no bowel or bladder issues at this time. Pain improving to BLE. No acute issues. 01/02: No change in condition. Pt. participating in PT/OT with improvement, pain controlled at this time. eating and drinking appropriately. No bowel or bladder issues. hemodynamically stable. No acute issues at this time. 01/07: Hemodynamically stable, eating and drinking appropriately. Labs reviewed, BUN 21, Cr 0.5, [id number]. Non-pitting BLE edema present, marcie hose non-effective, lasix 20mg po daily x 7 days started, Denies Cp, SOB, heart palpitations or dizziness, no hypoxia reported. Denies SHANNON, dizziness or double/blurred vision. no bowel or bladder issues at this time. No acute issues. - lasix 20mg po daily x 7 days - prednisone taper, 60, 50, 40, 30, 20, 10, 5 then done - continue ASA 81mg po BID for DVT prophylaxis - continue pain control and muscle relaxer - continue posaconazole - continue to monitor CBC/CMP - continue to monitor Dilcia Carl Appointments for Next 60 Days Date Time Provider Location Dept Phone 01/09/2024 10:00 AM JAMIE MCCARTY [facility] [phone] 01/10/2024 10:20 AM XR [facility] 01/10/2024 11:00 AM AASHISH MONGE Hosp [phone] 01/10/2024 12:00 PM SHARAN DOMINGUEZ [facility] [phone] 01/10/2024 2:[address] 2 MAIN QB (I-STAT) Mn Q [facility] [phone] 01/10/2024 3:00 PM MARLENE CORDERO Mn S [facility] [phone] 01/11/2024 2:30 PM NOEL DANIELS F [phone] 01/11/2024 3:15 PM NOEL DANIELS [facility] [phone] 02/06/2024 11:00 AM RUDDY GUPTA [facility] [phone] HPI: (Per discharge summary) 58-year-old female with PMHx signficant for T1DM cb/ DKA, urothelial carcinoma of the bladder s/p radical cystectomy and ileal conduit c/b SBO (Dec 2021), HTN, chronic sinusitis, asthma, persistent encephalopathy and hydrocephalus. 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 She was followed by ID at [facility] and was on posaconazole. She is s/p shunt externalization at [facility] (06/27/23) during abdominal surgery for SBO and eventual VPS explantation (07/10/23). She was o riginally scheduled for shunt reinternalization with Dr. Oconnor on 11/20/23. She fell due to leg spasms and presented to OSH ED and admitted on 10/07/23. Found to have L tibial fx s/p intramedullary nailDr. Fannyaverymanpreetaleida at [facility] (10/08/23). She was then transferred [place] [facility] [place]. She is s/p VPS reimplantation by Dr. Oconnor and Dr. Evans on 10/14. Intraoperative CSF cultures without growth. Plan to continue posaconazole at least through end of this year. She isto start asa bid on 10/24 for dvt ppx. Seen by WOCN for wounds as below - Coccyx : healed. -Left posterior heel: POA -Left anterior foot : Deep Tissue Pressure Injury, acquired While in the ARU, pt received physical therapy for range of motion, transfer training, endurance/ balance, fall prevention, and gait training with appropriate assistive devices, occupational therapy for activity of daily living/equipment/ functional transfer evaluation and training, and speech thera py for language evaluation and speech re-education. Team conferences were held to monitor progress and tailor program to patients needs. Patient had appropriate pain management, bowel management, sleep management, GI and DVT prophylaxis. Pt was stable throughout ARU course without major medical comp lication. Pt participated in all therapies and although with significant gradual improvement, would benefit from continuing skilled therapies and nursing at SNF prior to returning home. 10/23 stop robaxin, add zanaflex 4mg at bedtime and 2mg tid prn 10/27 zanaflex scheduled qid 10/28 d/w IM get f/u head CT d/t unresolved spasticity with pain 10/30 Shunt adjusted by Neurosurg from to 11/04 add gabapentin 300mg at bedtime Interval HPI: Pt. is alert, calm and cooperative during ROS and physical exam. There are no concerns for bowel issues. ileal conduit without complications, appropriate output without sediment or hematuria. Pt. is eating and drinking fluids appropriately. walker boot in place, denies pain at this time. pt. denies SHANNON, dizziness or double/blurred vision at this time. All labs and vital signs were reviewed. Pt. is participating in PT/OT without complications. Per nursing staff there are no acute changes to be addressed at this time. 11/15: No change in condition. Pt. participating in PT/OT, eating and drinking appropriately. No bowel or bladder issues. afebrile, non-toxic appearing. Pt.c/o BLE muscle cramps, Mag 1.9, muscle relaxer changed to methocarbamol 750mg po QID. Pt. has f/u with MD today to possibly hold anti-fungal due to muscle spasms that may be 2/2 anti-fungal. hemodynamically stable. No acute issues at this time. 11/19: No change in condition. Pt. participating in PT/OT as tolerated with BLE muscle spasms. Pt. states there is slight improvement with change in muscle relaxer and the muscle spasms. will attempt medrol dose pack therapy at this time and monitor blood glucose closely. eating and drinking appropriately. No bowel or bladder issues. Labs reviewed, hemodynamically stable. No acute issues at this time. 11/21: Hemodynamically stable, eating and drinking appropriately. Labs reviewed. participating in pt/ot, afebrile, non-toxic appearing. pt. refusing medrol dose pack at this time, pt. wants to wait onemore week of cessation of anti-fungal. no bowel or bladder issues at this time. No acute issues. 11/28: No change in condition. Pt. participating in PT/OT, eating and drinking appropriately. No bowel or bladder issues. afebrile, non-toxic appearing. pt. c/o continued BLE muscle spasms with pain, current regimen non-effective. will start medrol dose pack at this time, hemodynamically stable. No acute issues at this time. 12/05: Hemodynamically stable, eating and drinking appropriately. participating in pt/ot, denies pain at this time, afebrile, non-toxic appearing. pt. had f/u with neurosurgery with recommendations tochange muscle relaxer and f/u with neuro in [address] scan brain. no bowel or bladder issues at this time. No acute issues. 12/10: No change in condition. Pt. participating in PT/OT, eating and drinking appropriately. No bowel or bladder issues. afebrile, non-toxic appearing, Denies Cp, SOB, heart palpitations or dizziness. hemodynamically stable. No acute issues at this time. 12/12: Hemodynamically stable, eating and drinking appropriately. participating in pt/ot, denies pain at this time, afebrile, non-toxic appearing. pt. c/o continues BLE muscle spasms with pain, will start a prednisone taper at this time. no bowel or bladder issues at this time. No acute issues. 12/17: BP soft without dizziness, currently taking metoprolol BID, was taking once daily at home. Metoprolol decreased to once daily in am vs. BID. eating and drinking appropriately. Labs reviewed, BUN39, Cr 0.6, GFR 103, CBC without leukocytosis. participating in pt/ot, pain improved with steroid taper, afebrile, non-toxic appearing. no bowel or bladder issues at this time. No acute issues. 12/19: Hemodynamically stable, eating and drinking appropriately. participating in pt/ot, pt. states the pain is improving with steroid use. Denies Cp, SOB, heart palpitations or dizziness. afebrile, non-toxic appearing. no bowel or bladder issues at this time. No acute issues. 12/24: No change in condition. Pt. participating in PT/OT with sight improvement, eating and drinking appropriately. No bowel or bladder issues. Labs reviewed, BUN 23, Cr 0.6, GFR 103, CBC without leukocytosis. Pt. denies SHANNON, dizziness or double/blurred vision. hemodynamically stable. No acute issues at this time. 12/26: Hemodynamically stable, eating and drinking appropriately. participating in PT/OT as tolerated with improvement. no bowel or bladder issues at this time. Pain improving to BLE. No acute issues. 01/02: No change in condition. Pt. participating in PT/OT with improvement, pain controlled at this time. eating and drinking appropriately. No bowel or bladder issues. hemodynamically stable. No acute issues at this time. 01/07: Hemodynamically stable, eating and drinking appropriately. Labs reviewed, BUN 21, Cr 0.5, [id number]. Non-pitting BLE edema present, marcie hose non-effective, lasix 20mg po daily x 7 days started, Denies Cp, SOB, heart palpitations or dizziness, no hypoxia reported. Denies SHANNON, dizziness or double/blurred vision. no bowel or bladder issues at this time. No acute issues. PAST MEDICAL HISTORY Diagnosis Date Asthma 02/16/2021 Bladder cancer (HCC) 02/2021 urothelial carcinoma Diabetes mellitus type 1 (HCC) 04/13/2021 diagnosed at age 6 HTN (hypertension) 02/16/2021 Neoplasm of bladder 02/16/2021 Obesity 02/16/2021 Palpitations 02/16/2021 SUBJECTIVE: Review of Systems Constitutional: Positive for activity change and fatigue. Negative for fever. Respiratory: Negative. Cardiovascular: Positive for leg swelling. Gastrointestinal: Negative. Musculoskeletal: Positive for arthralgias. Neurological: Positive for weakness. Psychiatric/Behavioral: Negative. No reports of falls/injuries, changes in cognition/behaviors, or any uncontrolled pain exacerbations. Medications: Medications listed in Epic during SNF admission may not be current. Refer to facility record. Patient records, current medications, most recent labs, family/social history (unchanged) Reviewed.Refer to facility records. OBJECTIVE: Labs/diagnostics: reviewed Physical Exam: Physical Exam Constitutional: General: She is not in acute distress. Appearance: She is not toxic-appearing. HENT: Mouth/Throat: Mouth: Mucous membranes are moist. Pharynx: Oropharynx is clear. Eyes: Conjunctiva/sclera: Conjunctivae normal. Cardiovascular: Rate and Rhythm: Normal rate. Pulses: Normal pulses. Heart sounds: Normal heart sounds. Pulmonary: Effort: Pulmonary effort is normal. Breath sounds: Normal breath sounds. Abdominal: General: Bowel sounds are normal. Palpations: Abdomen is soft. Musculoskeletal: Right lower leg: Edema present. Left lower leg: Edema present. Skin: General: Skin is warm and dry. Capillary Refill: Capillary refill takes less than 2 seconds. Neurological: Mental Status: She is alert. Mental status is at baseline. Motor: Weakness present. Psychiatric: Mood and Affect: Mood normal. Behavior: Behavior normal. Some elements from the note on 01/03/24 have not changed and have been copied from that note. Any changes in condition have been addressed and charted accordingly. POC discussed with appropriate parties and nursing staff. Electronically signed by Dilcia Carl APRN.STABLE HELPER documented in this encounterThe [facility]09-24-[facility]24 Telephone encounter Note * Telephone Encounter - Dwayne Wray - 01/08/2024 2:[address] Mccarty, Please see the below Prescient message and contact patient to advise within 72 hours. Dwayne Cline Supervisor Opening And Picking I decided I will just keep my appointment scheduled for tomorrow morning since I haven t heard backfrom your office. Thanks for trying to change it. I will see Dr Mccarty tomorrow morning Thanks Chikis Tobar [facility]09-24-2024 Miscellaneous Notes* Telephone Encounter - Lookwider Asst, Dwayne - 01/08/2024 2:[address] Mccarty, Please see the below Prescient message and contact patient to advise within 72 hours. Dwayne Cline Supervisor Opening And Picking I decided I will just keep my appointment scheduled for tomorrow morning since I haven t heard backfrom your office. Thanks for trying to change it. I will see Dr Mccarty tomorrow morning Thanks Chikis Tobar * Telephone Encounter - Empow Studiost, Dwayne - 01/03/2024 8:[address] Mccarty, Please see the below Prescient message and contact patient to advise within 72 hours. Dwayne Cline Supervisor Opening And Pickingraul Mccarty- I am messaging you to see if it would be possible to get my appointment next week with you sometimearound my neuro appointment on instead of on Sunday. If it isn t possible that is fine I was just trying to limit my trips into [place] to one instead of two days in a row. Just let me know what you think about this possibility. Thanks for your time with this. See you next week. Chikis Tobar * Telephone Encounter - Empow Studiost, Dwayne - 12/14/2023 7:[address] Mccarty, Please see the below Prescient message and contact patient to advise within 72 hours. Dwayne Cline Supervisor Opening And Picking This has been a crazy week Dr Mccarty. I will check with my nurse and see if I can have them add the appointment with you at 10:30am. I will let your office know documented in this encounterThe [facility]09-19-2024 History of Present illness Narrative* Dilcia Carl APRN.STABLE HELPER - 01/03/2024 2:23 PM EDT Images from the original note were not included. Connected Care Unit Progress Note Patient Name: Chikis Tobar Patient Facility: [facility] Admit Date 11/09/23 Level of Care: Skilled SNF Attending: Amelia Parisi D.O. Service Date: 01/03/2024 Code Status: Chief Complaint: Evaluation regarding hydrocephalus, meningitis ASSESSMENT AND PLAN ASSESSMENT/PLAN: 1. 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 denies SHANNON, dizziness or double/blurred vision at this time 8: No change in condition. Pt. participating in PT/OT, eating and drinking appropriately. No bowel or bladder issues. afebrile, non-toxic appearing. Pt.c/o BLE muscle cramps, Mag 1.9, muscle relaxer changed to methocarbamol 750mg po QID. Pt. has f/u with MD today to possibly hold anti-fungal due to muscle spasms that may be 2/2 anti-fungal. hemodynamically stable. No acute issues at this time. 11/19: No change in condition. Pt. participating in PT/OT as tolerated with BLE muscle spasms. Pt. states there is slight improvement with change in muscle relaxer and the muscle spasms. will attempt medrol dose pack therapy at this time and monitor blood glucose closely. eating and drinking appropriately. No bowel or bladder issues. Labs reviewed, hemodynamically stable. No acute issues at this time. 11/21: Hemodynamically stable, eating and drinking appropriately. Labs reviewed. participating in pt/ot, afebrile, non-toxic appearing. pt. refusing medrol dose pack at this time, pt. wants to wait onemore week of cessation of anti-fungal. no bowel or bladder issues at this time. No acute issues. 11/28: No change in condition. Pt. participating in PT/OT, eating and drinking appropriately. No bowel or bladder issues. afebrile, non-toxic appearing. pt. c/o continued BLE muscle spasms with pain, current regimen non-effective. will start medrol dose pack at this time, hemodynamically stable. No acute issues at this time. 12/05: Hemodynamically stable, eating and drinking appropriately. participating in pt/ot, denies pain at this time, afebrile, non-toxic appearing. pt. had f/u with neurosurgery with recommendations tochange muscle relaxer and f/u with neuro in [address] scan brain. no bowel or bladder issues at this time. No acute issues. 12/10: No change in condition. Pt. participating in PT/OT, eating and drinking appropriately. No bowel or bladder issues. afebrile, non-toxic appearing, Denies Cp, SOB, heart palpitations or dizziness. hemodynamically stable. No acute issues at this time. 12/12: Hemodynamically stable, eating and drinking appropriately. participating in pt/ot, denies pain at this time, afebrile, non-toxic appearing. pt. c/o continues BLE muscle spasms with pain, will start a prednisone taper at this time. no bowel or bladder issues at this time. No acute issues. 12/17: eating and drinking appropriately. Labs reviewed, BUN 39, Cr 0.6, GFR 103, CBC without leukocytosis. participating in pt/ot, pain improved with steroid taper, afebrile, non-toxic appearing. no bowel or bladder issues at this time. No acute issues. 12/19: Hemodynamically stable, eating and drinking appropriately. participating in pt/ot, pt. states the pain is improving with steroid use. Denies Cp, SOB, heart palpitations or dizziness. afebrile, non-toxic appearing. no bowel or bladder issues at this time. No acute issues. 9/10: No change in condition. Pt. participating in PT/OT with sight improvement, eating and drinking appropriately. No bowel or bladder issues. Labs reviewed, BUN 23, Cr 0.6, GFR 103, CBC without leukocytosis. Pt. denies SHANNON, dizziness or double/blurred vision. hemodynamically stable. No acute issues at this time. 12/26: Hemodynamically stable, eating and drinking appropriately. participating in PT/OT as tolerated with improvement. no bowel or bladder issues at this time. Pain improving to BLE. No acute issues. 01/02: No change in condition. Pt. participating in PT/OT with improvement, pain controlled at this time. eating and drinking appropriately. No bowel or bladder issues. hemodynamically stable. No acute issues at this time. - prednisone taper, 60, 50, 40, 30, 20, 10, 5 then done - continue ASA 81mg po BID for DVT prophylaxis - continue pain control and muscle relaxer - continue posaconazole - continue to monitor CBC/CMP - continue to monitor Dilcia Carl Appointments for Next 60 Days Date Time Provider Location Dept Phone 01/09/2024 10:00 AM JAMIE MCCARTY [place] [facility] [phone] 01/10/2024 10:20 AM XR [facility] 01/10/2024 11:00 AM AASHISH MONGE [facility] [phone] 01/10/2024 2:[address] 2 MAIN QB (I-STAT) Mn Q [facility] [phone] 01/10/2024 3:00 PM MARLENE CORDERO S [facility] [phone] 01/11/2024 2:30 PM NOEL DANIELS F [phone] 01/11/2024 3:15 PM NOEL DANIELS F [phone] 02/06/2024 11:00 AM RUDDY GUPTA [phone] HPI: (Per discharge summary) 58-year-old female with PMHx signficant for T1DM cb/ DKA, urothelial carcinoma of the bladder s/p radical cystectomy and ileal conduit c/b SBO (Dec 2021), HTN, chronic sinusitis, asthma, persistent encephalopathy and hydrocephalus. 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 She was followed by ID at [facility] and was on posaconazole. She is s/p shunt externalization at [facility] (06/27/23) during abdominal surgery for SBO and eventual VPS explantation (07/10/23). She was o riginally scheduled for shunt reinternalization with Dr. Oconnor on 11/20/23. She fell due to leg spasms and presented to OSH ED and admitted on 10/07/23. Found to have L tibial fx s/p intramedullary nailDrGiancarlo Morejon at [facility] (10/08/23). She was then transferred to [facility] [place]. She is s/p VPS reimplantation by Dr. Oconnor and Dr. Evans on 10/14. Intraoperative CSF cultures without growth. Plan to continue posaconazole at least through end of this year. She isto start asa bid on 10/24 for dvt ppx. Seen by WOCN for wounds as below - Coccyx : healed. -Left posterior heel: POA -Left anterior foot : Deep Tissue Pressure Injury, acquired While in the ARU, pt received physical therapy for range of motion, transfer training, endurance/ balance, fall prevention, and gait training with appropriate assistive devices, occupational therapy for activity of daily living/equipment/ functional transfer evaluation and training, and speech thera py for language evaluation and speech re-education. Team conferences were held to monitor progress and tailor program to patients needs. Patient had appropriate pain management, bowel management, sleep management, GI and DVT prophylaxis. Pt was stable throughout ARU course without major medical comp lication. Pt participated in all therapies and although with significant gradual improvement, would benefit from continuing skilled therapies and nursing at SNF prior to returning home. 10/23 stop robaxin, add zanaflex 4mg at bedtime and 2mg tid prn 10/27 zanaflex scheduled qid 10/28 d/w IM get f/u head CT d/t unresolved spasticity with pain 10/30 Shunt adjusted by Neurosurg from to 7 11/04 add gabapentin 300mg at bedtime Interval HPI: Pt. is alert, calm and cooperative during ROS and physical exam. There are no concerns for bowel issues. ileal conduit without complications, appropriate output without sediment or hematuria. Pt. is eating and drinking fluids appropriately. walker boot in place, denies pain at this time. pt. denies SHANNON, dizziness or double/blurred vision at this time. All labs and vital signs were reviewed. Pt. is participating in PT/OT without complications. Per nursing staff there are no acute changes to be addressed at this time. 8: No change in condition. Pt. participating in PT/OT, eating and drinking appropriately. No bowel or bladder issues. afebrile, non-toxic appearing. Pt.c/o BLE muscle cramps, Mag 1.9, muscle relaxer changed to methocarbamol 750mg po QID. Pt. has f/u with MD today to possibly hold anti-fungal due to muscle spasms that may be 2/2 anti-fungal. hemodynamically stable. No acute issues at this time. 11/19: No change in condition. Pt. participating in PT/OT as tolerated with BLE muscle spasms. Pt. states there is slight improvement with change in muscle relaxer and the muscle spasms. will attempt medrol dose pack therapy at this time and monitor blood glucose closely. eating and drinking appropriately. No bowel or bladder issues. Labs reviewed, hemodynamically stable. No acute issues at this time. 11/21: Hemodynamically stable, eating and drinking appropriately. Labs reviewed. participating in pt/ot, afebrile, non-toxic appearing. pt. refusing medrol dose pack at this time, pt. wants to wait onemore week of cessation of anti-fungal. no bowel or bladder issues at this time. No acute issues. 11/28: No change in condition. Pt. participating in PT/OT, eating and drinking appropriately. No bowel or bladder issues. afebrile, non-toxic appearing. pt. c/o continued BLE muscle spasms with pain, current regimen non-effective. will start medrol dose pack at this time, hemodynamically stable. No acute issues at this time. 12/05: Hemodynamically stable, eating and drinking appropriately. participating in pt/ot, denies pain at this time, afebrile, non-toxic appearing. pt. had f/u with neurosurgery with recommendations tochange muscle relaxer and f/u with neuro in [address] scan brain. no bowel or bladder issues at this time. No acute issues. 12/10: No change in condition. Pt. participating in PT/OT, eating and drinking appropriately. No bowel or bladder issues. afebrile, non-toxic appearing, Denies Cp, SOB, heart palpitations or dizziness. hemodynamically stable. No acute issues at this time. 12/12: Hemodynamically stable, eating and drinking appropriately. participating in pt/ot, denies pain at this time, afebrile, non-toxic appearing. pt. c/o continues BLE muscle spasms with pain, will start a prednisone taper at this time. no bowel or bladder issues at this time. No acute issues. 12/17: BP soft without dizziness, currently taking metoprolol BID, was taking once daily at home. Metoprolol decreased to once daily in am vs. BID. eating and drinking appropriately. Labs reviewed, BUN39, Cr 0.6, GFR 103, CBC without leukocytosis. participating in pt/ot, pain improved with steroid taper, afebrile, non-toxic appearing. no bowel or bladder issues at this time. No acute issues. 12/19: Hemodynamically stable, eating and drinking appropriately. participating in pt/ot, pt. states the pain is improving with steroid use. Denies Cp, SOB, heart palpitations or dizziness. afebrile, non-toxic appearing. no bowel or bladder issues at this time. No acute issues. 12/24: No change in condition. Pt. participating in PT/OT with sight improvement, eating and drinking appropriately. No bowel or bladder issues. Labs reviewed, BUN 23, Cr 0.6, GFR 103, CBC without leukocytosis. Pt. denies SHANNON, dizziness or double/blurred vision. hemodynamically stable. No acute issues at this time. 12/26: Hemodynamically stable, eating and drinking appropriately. participating in PT/OT as tolerated with improvement. no bowel or bladder issues at this time. Pain improving to BLE. No acute issues. 01/02: No change in condition. Pt. participating in PT/OT with improvement, pain controlled at this time. eating and drinking appropriately. No bowel or bladder issues. hemodynamically stable. No acute issues at this time. PAST MEDICAL HISTORY Diagnosis Date Asthma 02/16/2021 Bladder cancer (HCC) 02/2021 urothelial carcinoma Diabetes mellitus type 1 (HCC) 04/13/2021 diagnosed at age 6 HTN (hypertension) 02/16/2021 Neoplasm of bladder 02/16/2021 Obesity 02/16/2021 Palpitations 02/16/2021 SUBJECTIVE: Review of Systems Constitutional: Positive for activity change and fatigue. Negative for fever. Respiratory: Negative. Cardiovascular: Negative. Gastrointestinal: Negative. Musculoskeletal: Positive for arthralgias. Neurological: Positive for weakness. Psychiatric/Behavioral: Negative. No reports of falls/injuries, changes in cognition/behaviors, or any uncontrolled pain exacerbations. Medications: Medications listed in Epic during SNF admission may not be current. Refer to facility record. Patient records, current medications, most recent labs, family/social history (unchanged) Reviewed.Refer to facility records. OBJECTIVE: Labs/diagnostics: reviewed Physical Exam: Physical Exam Constitutional: General: She is not in acute distress. Appearance: She is not toxic-appearing. HENT: Mouth/Throat: Mouth: Mucous membranes are moist. Pharynx: Oropharynx is clear. Eyes: Conjunctiva/sclera: Conjunctivae normal. Cardiovascular: Rate and Rhythm: Normal rate. Pulses: Normal pulses. Heart sounds: Normal heart sounds. Pulmonary: Effort: Pulmonary effort is normal. Breath sounds: Normal breath sounds. Abdominal: General: Bowel sounds are normal. Palpations: Abdomen is soft. Skin: General: Skin is warm and dry. Capillary Refill: Capillary refill takes less than 2 seconds. Neurological: Mental Status: She is alert. Mental status is at baseline. Motor: Weakness present. Psychiatric: Mood and Affect: Mood normal. Behavior: Behavior normal. Some elements from the note on 12/27/23 have not changed and have been copied from that note. Any changes in condition have been addressed and charted accordingly. POC discussed with appropriate parties and nursing staff. Electronically signed by Dilcia Carl APRN.STABLE HELPER documented in this encounterThe [facility] Telephone encounter Note * Telephone Encounter - Dwayne Wray - 01/03/2024 8:[address] Mccarty, Please see the below Prescient message and contact patient to advise within 72 hours. Dwayne Cline Supervisor Opening And Picking Dr. Mccarty- I am messaging you to see if it would be possible to get my appointment next week with you sometimearound my neuro appointment on instead of on Sunday. If it isn t possible that is fine I was just trying to limit my trips into [place] to one instead of two days in a row. Just let me know what you think about this possibility. Thanks for your time with this. See you next week. Chikis Tobar [facility]09-12-2024 History of Present illness Narrative* Dilcia Carl APRN.STABLE HELPER - 12/27/2023 3:38 PM EDT Images from the original note were not included. Connected Care Unit Progress Note Patient Name: Chikis Tobar Patient Facility: [facility] Admit Date 11/09/23 Level of Care: Skilled SNF Attending: Amelia Parisi D.O. Service Date: 12/27/2023 Code Status: Chief Complaint: Evaluation regarding hydrocephalus, meningitis ASSESSMENT AND PLAN ASSESSMENT/PLAN: 1. 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 denies SHANNON, dizziness or double/blurred vision at this time 8/2: No change in condition. Pt. participating in PT/OT, eating and drinking appropriately. No bowel or bladder issues. afebrile, non-toxic appearing. Pt.c/o BLE muscle cramps, Mag 1.9, muscle relaxer changed to methocarbamol 750mg po QID. Pt. has f/u with MD today to possibly hold anti-fungal due to muscle spasms that may be 2/2 anti-fungal. hemodynamically stable. No acute issues at this time. 11/19: No change in condition. Pt. participating in PT/OT as tolerated with BLE muscle spasms. Pt. states there is slight improvement with change in muscle relaxer and the muscle spasms. will attempt medrol dose pack therapy at this time and monitor blood glucose closely. eating and drinking appropriately. No bowel or bladder issues. Labs reviewed, hemodynamically stable. No acute issues at this time. 11/21: Hemodynamically stable, eating and drinking appropriately. Labs reviewed. participating in pt/ot, afebrile, non-toxic appearing. pt. refusing medrol dose pack at this time, pt. wants to wait onemore week of cessation of anti-fungal. no bowel or bladder issues at this time. No acute issues. 11/28: No change in condition. Pt. participating in PT/OT, eating and drinking appropriately. No bowel or bladder issues. afebrile, non-toxic appearing. pt. c/o continued BLE muscle spasms with pain, current regimen non-effective. will start medrol dose pack at this time, hemodynamically stable. No acute issues at this time. 12/05: Hemodynamically stable, eating and drinking appropriately. participating in pt/ot, denies pain at this time, afebrile, non-toxic appearing. pt. had f/u with neurosurgery with recommendations tochange muscle relaxer and f/u with neuro in [address] scan brain. no bowel or bladder issues at this time. No acute issues. 12/10: No change in condition. Pt. participating in PT/OT, eating and drinking appropriately. No bowel or bladder issues. afebrile, non-toxic appearing, Denies Cp, SOB, heart palpitations or dizziness. hemodynamically stable. No acute issues at this time. 12/12: Hemodynamically stable, eating and drinking appropriately. participating in pt/ot, denies pain at this time, afebrile, non-toxic appearing. pt. c/o continues BLE muscle spasms with pain, will start a prednisone taper at this time. no bowel or bladder issues at this time. No acute issues. 12/17: eating and drinking appropriately. Labs reviewed, BUN 39, Cr 0.6, GFR 103, CBC without leukocytosis. participating in pt/ot, pain improved with steroid taper, afebrile, non-toxic appearing. no bowel or bladder issues at this time. No acute issues. 12/19: Hemodynamically stable, eating and drinking appropriately. participating in pt/ot, pt. states the pain is improving with steroid use. Denies Cp, SOB, heart palpitations or dizziness. afebrile, non-toxic appearing. no bowel or bladder issues at this time. No acute issues. 12/24: No change in condition. Pt. participating in PT/OT with sight improvement, eating and drinking appropriately. No bowel or bladder issues. Labs reviewed, BUN 23, Cr 0.6, GFR 103, CBC without leukocytosis. Pt. denies SHANNON, dizziness or double/blurred vision. hemodynamically stable. No acute issues at this time. 12/26: Hemodynamically stable, eating and drinking appropriately. participating in PT/OT as tolerated with improvement. no bowel or bladder issues at this time. Pain improving to BLE. No acute issues. - prednisone taper, 60, 50, 40, 30, 20, 10, 5 then done - continue ASA 81mg po BID for DVT prophylaxis - continue pain control and muscle relaxer - continue posaconazole - continue to monitor CBC/CMP - continue to monitor Dilcia Carl Appointments for Next 60 Days Date Time Provider Location Dept Phone 12/27/2023 1:30 PM SHARAN DMOINGUEZ [facility] [phone] 01/09/2024 10:00 AM JAMIE MCCARTY [facility] [phone] 01/10/2024 10:20 AM [facility] 01/10/2024 11:00 AM AASHISH MONGE [facility] [phone] 01/10/2024 2:[address] 2 MAIN QB (I-STAT) [facility] [phone] 01/10/2024 3:00 PM MARLENE CORDERO S Bldg [phone] 01/11/2024 2:30 PM NOEL DANIELS F [phone] 01/11/2024 3:15 PM NOEL DANIELS F [phone] 02/06/2024 11:00 AM RUDDY GUPTA [phone] HPI: (Per discharge summary) 58-year-old female with PMHx signficant for T1DM cb/ DKA, urothelial carcinoma of the bladder s/p radical cystectomy and ileal conduit c/b SBO (Dec 2021), HTN, chronic sinusitis, asthma, persistent encephalopathy and hydrocephalus. 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 She was followed by ID at [facility] and was on posaconazole. She is s/p shunt externalization at [facility] (06/27/23) during abdominal surgery for SBO and eventual VPS explantation (07/10/23). She was o riginally scheduled for shunt reinternalization with Dr. Oconnor on 11/20/23. She fell due to leg spasms and presented to OSH ED and admitted on 10/07/23. Found to have L tibial fx s/[facility]amed[facility] (10[facility] She was then [place] [facility] [place]. She is s/p VPS reimplantation by Dr. Oconnor and Dr. Evans on 10/14. Intraoperative CSF cultures without growth. Plan to continue posaconazole at least through end of this year. She isto start asa bid on 10/24 for dvt ppx. Seen by [facility] for wounds as below - Coccyx : healed. -Left posterior heel: POA -Left anterior foot : Deep Tissue Pressure Injury, acquired While in the ARU, pt received physical therapy for range of motion, transfer training, endurance/ balance, fall prevention, and gait training with appropriate assistive devices, occupational therapy for activity of daily living/equipment/ functional transfer evaluation and training, and speech thera py for language evaluation and speech re-education. Team conferences were held to monitor progress and tailor program to patients needs. Patient had appropriate pain management, bowel management, sleep management, GI and DVT prophylaxis. Pt was stable throughout ARU course without major medical comp lication. Pt participated in all therapies and although with significant gradual improvement, would benefit from continuing skilled therapies and nursing at SNF prior to returning home. 10/23 stop robaxin, add zanaflex 4mg at bedtime and 2mg tid prn 10/27 zanaflex scheduled qid 10/28 d/w IM get f/u head CT d/t unresolved spasticity with pain 10/30 Shunt adjusted by Neurosurg from to 7 11/04 add gabapentin 300mg at bedtime Interval HPI: Pt. is alert, calm and cooperative during ROS and physical exam. There are no concerns for bowel issues. ileal conduit without complications, appropriate output without sediment or hematuria. Pt. is eating and drinking fluids appropriately. walker boot in place, denies pain at this time. pt. denies SHANNON, dizziness or double/blurred vision at this time. All labs and vital signs were reviewed. Pt. is participating in PT/OT without complications. Per nursing staff there are no acute changes to be addressed at this time. 11/15: No change in condition. Pt. participating in PT/OT, eating and drinking appropriately. No bowel or bladder issues. afebrile, non-toxic appearing. Pt.c/o BLE muscle cramps, Mag 1.9, muscle relaxer changed to methocarbamol 750mg po QID. Pt. has f/u with MD today to possibly hold anti-fungal due to muscle spasms that may be 2/2 anti-fungal. hemodynamically stable. No acute issues at this time. 11/19: No change in condition. Pt. participating in PT/OT as tolerated with BLE muscle spasms. Pt. states there is slight improvement with change in muscle relaxer and the muscle spasms. will attempt medrol dose pack therapy at this time and monitor blood glucose closely. eating and drinking appropriately. No bowel or bladder issues. Labs reviewed, hemodynamically stable. No acute issues at this time. 11/21: Hemodynamically stable, eating and drinking appropriately. Labs reviewed. participating in pt/ot, afebrile, non-toxic appearing. pt. refusing medrol dose pack at this time, pt. wants to wait onemore week of cessation of anti-fungal. no bowel or bladder issues at this time. No acute issues. 11/28: No change in condition. Pt. participating in PT/OT, eating and drinking appropriately. No bowel or bladder issues. afebrile, non-toxic appearing. pt. c/o continued BLE muscle spasms with pain, current regimen non-effective. will start medrol dose pack at this time, hemodynamically stable. No acute issues at this time. 12/05: Hemodynamically stable, eating and drinking appropriately. participating in pt/ot, denies pain at this time, afebrile, non-toxic appearing. pt. had f/u with neurosurgery with recommendations tochange muscle relaxer and f/u with neuro in [address] scan brain. no bowel or bladder issues at this time. No acute issues. 12/10: No change in condition. Pt. participating in PT/OT, eating and drinking appropriately. No bowel or bladder issues. afebrile, non-toxic appearing, Denies Cp, SOB, heart palpitations or dizziness. hemodynamically stable. No acute issues at this time. 12/12: Hemodynamically stable, eating and drinking appropriately. participating in pt/ot, denies pain at this time, afebrile, non-toxic appearing. pt. c/o continues BLE muscle spasms with pain, will start a prednisone taper at this time. no bowel or bladder issues at this time. No acute issues. 12/17: BP soft without dizziness, currently taking metoprolol BID, was taking once daily at home. Metoprolol decreased to once daily in am vs. BID. eating and drinking appropriately. Labs reviewed, BUN39, Cr 0.6, GFR 103, CBC without leukocytosis. participating in pt/ot, pain improved with steroid taper, afebrile, non-toxic appearing. no bowel or bladder issues at this time. No acute issues. 12/19: Hemodynamically stable, eating and drinking appropriately. participating in pt/ot, pt. states the pain is improving with steroid use. Denies Cp, SOB, heart palpitations or dizziness. afebrile, non-toxic appearing. no bowel or bladder issues at this time. No acute issues. 12/24: No change in condition. Pt. participating in PT/OT with sight improvement, eating and drinking appropriately. No bowel or bladder issues. Labs reviewed, BUN 23, Cr 0.6, GFR 103, CBC without leukocytosis. Pt. denies SHANNON, dizziness or double/blurred vision. hemodynamically stable. No acute issues at this time. 12/26: Hemodynamically stable, eating and drinking appropriately. participating in PT/OT as tolerated with improvement. no bowel or bladder issues at this time. Pain improving to BLE. No acute issues. PAST MEDICAL HISTORY Diagnosis Date Asthma 02/16/2021 Bladder cancer (HCC) 02/2021 urothelial carcinoma Diabetes mellitus type 1 (HCC) 04/13/2021 diagnosed at age 6 HTN (hypertension) 02/16/2021 Neoplasm of bladder 02/16/2021 Obesity 02/16/2021 Palpitations 02/16/2021 SUBJECTIVE: Review of Systems Constitutional: Positive for activity change and fatigue. Negative for fever. Respiratory: Negative. Cardiovascular: Negative. Gastrointestinal: Negative. Musculoskeletal: Positive for arthralgias. Neurological: Positive for weakness. Psychiatric/Behavioral: Negative. No reports of falls/injuries, changes in cognition/behaviors, or any uncontrolled pain exacerbations. Medications: Medications listed in Epic during SNF admission may not be current. Refer to facility record. Patient records, current medications, most recent labs, family/social history (unchanged) Reviewed.Refer to facility records. OBJECTIVE: Labs/diagnostics: reviewed Physical Exam: Physical Exam Constitutional: General: She is not in acute distress. Appearance: She is not toxic-appearing. HENT: Mouth/Throat: Mouth: Mucous membranes are moist. Pharynx: Oropharynx is clear. Eyes: Conjunctiva/sclera: Conjunctivae normal. Cardiovascular: Rate and Rhythm: Normal rate. Pulses: Normal pulses. Heart sounds: Normal heart sounds. Pulmonary: Effort: Pulmonary effort is normal. Breath sounds: Normal breath sounds. Abdominal: General: Bowel sounds are normal. Palpations: Abdomen is soft. Skin: General: Skin is warm and dry. Capillary Refill: Capillary refill takes less than 2 seconds. Neurological: Mental Status: She is alert. Mental status is at baseline. Motor: Weakness present. Psychiatric: Mood and Affect: Mood normal. Behavior: Behavior normal. Some elements from the note on 12/25/23 have not changed and have been copied from that note. Any changes in condition have been addressed and charted accordingly. POC discussed with appropriate parties and nursing staff. Electronically signed by Dilcia Carl APRN.STABLE HELPER documented in this encounterThe [facility]09-12-2024 History of Present illness Narrative* Sharan Dominguez APRN.MARIS - 12/27/2023 2:29 PM EDT Images from the original note were not included. [facility] PROVIDER PROGRAM - FOLLOW UP VISIT PATIENT NAME: Chikis Tobar SERVICE DATE: 12/27/[address]23 PLACE OF SERVICE FOR THIS VISIT[facility] Facility Name: [facility] Level of Care: Skilled Asked to see patient at the request of and in collaboration with Dr. Parisi for my opinion regardingpressure injury of the left heel. Requested to see patient today for wound assessment and treatment evaluation CHIEF COMPLAINT: Follow up wound care evaluation of pressure injury of the left heel. INTERVAL HISTORY Information provided by: Chart review and Patient 58 year old y/o female who presents with a wound Location: Left posterior heel Onset: POA Aggravating factors: Diabetes mellitus, Mechanical devices related, Positioning, and Pressure Wound etiology: Pressure Associated pain with wound: Yes Relieving factors for wound pain: Positioning Treatments: Current: Betadine, ABD, kerlix Remainder unchanged Future Appointments Date Time Provider Department Center 01/09/2024 10:00 AM Jamie Mccarty MD [facility] 01/10/2024 10:20 AM [facility] 01/10/2024 11:00 AM Aashish Monge PA-C [facility] 01/10/2024 2:[address] 2 MAIN QB (I-STAT) [facility] 01/10/2024 3:00 PM Marlene Cordero PA-C [facility] Mn S Bldg 01/11/2024 2:30 PM Noel Daniels MD [facility] 01/11/2024 3:15 PM Noel Daniels MD [facility] 02/06/2024 11:00 AM Ruddy Gupta MD [facility] 03/21/2024 11:00 AM Reggie Butler MD [facility] Mn S Bldg 09/16/2024 10:45 AM LAB MAIN Q2-1 LBQ2-1 Mn Q Bldg 09/16/2024 11:[address] 2 MAIN QB (I-STAT) [facility] IMPRESSION/RECOMMENDATIONS The patient's age, altered mobility and other co morbidities are likely to impact wound and skin integrity Additional impediments to healing Diabetic: Yes Anticoagulation: Aspirin Antibiotics: No Steroids: Prednisone (L89.620) Pressure injury of left heel, unstageable (HCC) (primary encounter diagnosis) Comment: Unstageable pressure injury of the posterior aspect of the left heel continues to display improvement, with decreased measurements at today's visit. Wound remains comprised of dry, firm eschar without lifting or drainage noted. Periwound remains dry and intact with some blanchable erythema. Will plan to continue betadine to the area. DP and PT pulses +2. Remains somewhat tender on exam. HPI: Patient s/p left tibia fracture with use of walking boot post-operatively, subsequent pressureinjury d/t mechanical device. Patient given OK per orthopedics to leave boot off to aide in wound healing and pressure reduction. Plan: -Monitor for any s/s of infection- notify STABLE HELPER/MD of any pertinent findings -Wound care orders as follows for bacteriostatic properties: Wound Care Order: - Cleanse wound and periwound skin with normal saline and gauze, gently pat dry. - Apply betadine liberally to wound and periwound - Cover with ABD and kerlix - Change dressing daily and PRN. (R53.81) Physical deconditioning Comment: Patient requires assistance with ADL's and mobility d/t recent left tibia fracture, hydrocephalus. Working with PT and OT. Plan: - Turn and reposition frequently - Frequent weight shifts when seated - Nutritional support as appropriate FOLLOW UP PLAN Weekly as needed SUBJECTIVE REVIEW: Information provided by: Patient and Facility nurse Review of Systems Constitutional: Negative for chills, diaphoresis and fever. HENT: Negative. Respiratory: Negative. Cardiovascular: Negative. Gastrointestinal: Negative. Genitourinary: + urostomy Musculoskeletal: Positive for arthralgias and gait problem. Skin: Positive for wound. Neurological: Positive for weakness (Generalized). Psychiatric/Behavioral: Negative Nutrition DIET: NCS (No Concentrated Sweets) diet, Regular texture, Regular/Thin consistency SUPPLEMENTS: Anuel APPETITE: fair MEDICATION REVIEW Medications listed in Epic during SNF admission may not be current. Refer to facility record Medications Reviewed per facility list done: Yes Allergies reviewed per facility list Prior chart notes reviewed SOCIAL HISTORY Tobacco Use Past: No Current: No OBJECTIVE Physical Exam Vitals and nursing note reviewed. Constitutional: General: She is not in acute distress. Appearance: She is well-groomed and normal weight. She is not ill-appearing or toxic-appearing. Comments: Pleasant middle aged female sitting upright in wheelchair, calm and cooperative. HENT: Head: Normocephalic and atraumatic. Nose: No congestion. Mouth/Throat: Mouth: Mucous membranes are moist. Pharynx: Oropharynx is clear. Cardiovascular: Rate and Rhythm: Normal rate. Pulses: Normal pulses. Pulmonary: Effort: Pulmonary effort is normal. No respiratory distress. Abdominal: General: Abdomen is flat. There is no distension. Palpations: Abdomen is soft. Musculoskeletal: General: Tenderness (LLE). Right lower leg: +1 edema. Left lower leg: +1 edema. Skin: General: Skin is warm and dry. Findings: Wound (See HPI) present. Neurological: Mental Status: She is alert and oriented to person, place, and time. Motor: Weakness present. Gait: Gait abnormal. Psychiatric: Attention and Perception: Attention normal. Mood and Affect: Mood and affect normal. Speech: Speech normal. Behavior: Behavior normal. Behavior is cooperative. WOUND ASSESSMENT Location: Left Posterior Heel Type: pressure injury Stage: Unstageable Exposed structure:None Progress: Stable- decreased measurements Wound measurements (cm): 2.4 x 2 x UTD Full thickness: N/A Tunneling/undermining: none Wound tissue color: 100% firm, dry eschar Periwound tissue: dry, intact, blanchable erythema Drainage: none Drainage odor: None ANCILLARY DATA REVIEWED Managed by facility. Counseled on wound prognosis and plan of care, Counseled patient, family or facility staff on woundhealing process. Counseled on treatment options, and Written wound care instructions left in facility. Visit billing based on time: No, visit will not be billed on time? I spent a total of 20 minutes on the date of the service which included preparing to see the patient, [id number] patient care, completing clinical documentation, reviewing separately obtained history, performing a medically appropriate examination, counseling and educating the patient/family/caregiver, and communicating with other HCPs (not separately reported). Joint visit made with Daniel Sandoval LPN. Plan of Care discussed with facility nursing staff, patient, and referring provider. Wound care was performed during visit. All documentation from previous visit of 12/20/2023 was copied and pasted, documentation has been reviewed and edited as necessary for today's visit on 12/27/2023. SIGNATURE: Sharan Dominguez APRN.STABLE HELPER,CWOCN PATIENT NAME: Chikis Tobar DATE: 12/27/2023 OFFICE #: [phone] PAGER/CELL: [phone] documented in this encounterThe [facility] System09-10-2024 History of Present illness Narrative* Dilcia Carl APRN.MARIS - 12/25/2023 1:07 PM EDT Images from the original note were not included. Connected Care Unit Progress Note Patient Name: Chikis Tobar Patient Facility: [facility] Admit Date 11/09/23 Level of Care: Skilled SNF Attending: Amelia Parisi D.O. Service Date: 12/25/2023 Code Status: Chief Complaint: Evaluation regarding hydrocephalus, meningitis ASSESSMENT AND PLAN ASSESSMENT/PLAN: 1. 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 denies SHANNON, dizziness or double/blurred vision at this time 8: No change in condition. Pt. participating in PT/OT, eating and drinking appropriately. No bowel or bladder issues. afebrile, non-toxic appearing. Pt.c/o BLE muscle cramps, Mag 1.9, muscle relaxer changed to methocarbamol 750mg po QID. Pt. has f/u with MD today to possibly hold anti-fungal due to muscle spasms that may be 2/2 anti-fungal. hemodynamically stable. No acute issues at this time. 11/19: No change in condition. Pt. participating in PT/OT as tolerated with BLE muscle spasms. Pt. states there is slight improvement with change in muscle relaxer and the muscle spasms. will attempt medrol dose pack therapy at this time and monitor blood glucose closely. eating and drinking appropriately. No bowel or bladder issues. Labs reviewed, hemodynamically stable. No acute issues at this time. 11/21: Hemodynamically stable, eating and drinking appropriately. Labs reviewed. participating in pt/ot, afebrile, non-toxic appearing. pt. refusing medrol dose pack at this time, pt. wants to wait onemore week of cessation of anti-fungal. no bowel or bladder issues at this time. No acute issues. 11/28: No change in condition. Pt. participating in PT/OT, eating and drinking appropriately. No bowel or bladder issues. afebrile, non-toxic appearing. pt. c/o continued BLE muscle spasms with pain, current regimen non-effective. will start medrol dose pack at this time, hemodynamically stable. No acute issues at this time. 12/05: Hemodynamically stable, eating and drinking appropriately. participating in pt/ot, denies pain at this time, afebrile, non-toxic appearing. pt. had f/u with neurosurgery with recommendations tochange muscle relaxer and f/u with neuro in [address] scan brain. no bowel or bladder issues at this time. No acute issues. 12/10: No change in condition. Pt. participating in PT/OT, eating and drinking appropriately. No bowel or bladder issues. afebrile, non-toxic appearing, Denies Cp, SOB, heart palpitations or dizziness. hemodynamically stable. No acute issues at this time. 12/12: Hemodynamically stable, eating and drinking appropriately. participating in pt/ot, denies pain at this time, afebrile, non-toxic appearing. pt. c/o continues BLE muscle spasms with pain, will start a prednisone taper at this time. no bowel or bladder issues at this time. No acute issues. 12/17: eating and drinking appropriately. Labs reviewed, BUN 39, Cr 0.6, GFR 103, CBC without leukocytosis. participating in pt/ot, pain improved with steroid taper, afebrile, non-toxic appearing. no bowel or bladder issues at this time. No acute issues. 12/19: Hemodynamically stable, eating and drinking appropriately. participating in pt/ot, pt. states the pain is improving with steroid use. Denies Cp, SOB, heart palpitations or dizziness. afebrile, non-toxic appearing. no bowel or bladder issues at this time. No acute issues. 12/24: No change in condition. Pt. participating in PT/OT with sight improvement, eating and drinking appropriately. No bowel or bladder issues. Labs reviewed, BUN 23, Cr 0.6, GFR 103, CBC without leukocytosis. Pt. denies SHANNON, dizziness or double/blurred vision. hemodynamically stable. No acute issues at this time. - prednisone taper, 60, 50, 40, 30, 20, 10, 5 then done - continue ASA 81mg po BID for DVT prophylaxis - continue pain control and muscle relaxer - continue posaconazole - continue to monitor CBC/CMP - continue to monitor Dilcia Carl Appointments for Next 60 Days Date Time Provider Location Dept Phone 01/09/2024 10:00 AM JAMIE MCCARTY [facility] [phone] 01/10/2024 10:20 AM [facility] 01/10/2024 11:00 AM AASHISH MONGE [facility] [phone] 01/10/2024 2:[address] 2 MAIN QB (I-STAT) [facility] [phone] 01/10/2024 3:00 PM MARLENE CORDERO S Bld[facility] [phone] 01/11/2024 2:30 PM NOEL DANIELS F [phone] 01/11/2024 3:15 PM NOEL DANIELS F [phone] 02/06/2024 11:00 AM RUDDY GUPTA [facility] [phone] HPI: (Per discharge summary) 58-year-old female with PMHx signficant for T1DM cb/ DKA, urothelial carcinoma of the bladder s/p radical cystectomy and ileal conduit c/b SBO (Dec 2021), HTN, chronic sinusitis, asthma, persistent encephalopathy and hydrocephalus. 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 She was followed by ID at [facility] and was on posaconazole. She is s/p shunt externalization at [facility] (06/27/23) during abdominal surgery for SBO and eventual VPS explantation (07/10/23). She was o riginally scheduled for shunt reinternalization with Dr. Oconnor on 11/20/23. She fell due to leg spasms and presented to OSH ED and admitted on 10/07/23. Found to have L tibial fx s/p intramedullary nailDr. Randallaleida [facility] (10[facility]). She was then [place] [facility] [place]. She is s/p VPS reimplantation by Dr. Oconnor and Dr. Evans on 10/14. Intraoperative CSF cultures without growth. Plan to continue posaconazole at least through end of this year. She isto start asa bid on 10/24 for dvt ppx. Seen by WOCN for wounds as below - Coccyx : healed. -Left posterior heel: POA -Left anterior foot : Deep Tissue Pressure Injury, acquired While in the ARU, pt received physical therapy for range of motion, transfer training, endurance/ balance, fall prevention, and gait training with appropriate assistive devices, occupational therapy for activity of daily living/equipment/ functional transfer evaluation and training, and speech thera py for language evaluation and speech re-education. Team conferences were held to monitor progress and tailor program to patients needs. Patient had appropriate pain management, bowel management, sleep management, GI and DVT prophylaxis. Pt was stable throughout ARU course without major medical comp lication. Pt participated in all therapies and although with significant gradual improvement, would benefit from continuing skilled therapies and nursing at SNF prior to returning home. 10/23 stop robaxin, add zanaflex 4mg at bedtime and 2mg tid prn 10/27 zanaflex scheduled qid 10/28 d/w IM get f/u head CT d/t unresolved spasticity with pain 10/30 Shunt adjusted by Neurosurg from to 7 11/04 add gabapentin 300mg at bedtime Interval HPI: Pt. is alert, calm and cooperative during ROS and physical exam. There are no concerns for bowel issues. ileal conduit without complications, appropriate output without sediment or hematuria. Pt. is eating and drinking fluids appropriately. walker boot in place, denies pain at this time. pt. denies SHANNON, dizziness or double/blurred vision at this time. All labs and vital signs were reviewed. Pt. is participating in PT/OT without complications. Per nursing staff there are no acute changes to be addressed at this time. 11/15: No change in condition. Pt. participating in PT/OT, eating and drinking appropriately. No bowel or bladder issues. afebrile, non-toxic appearing. Pt.c/o BLE muscle cramps, Mag 1.9, muscle relaxer changed to methocarbamol 750mg po QID. Pt. has f/u with MD today to possibly hold anti-fungal due to muscle spasms that may be 2/2 anti-fungal. hemodynamically stable. No acute issues at this time. 11/19: No change in condition. Pt. participating in PT/OT as tolerated with BLE muscle spasms. Pt. states there is slight improvement with change in muscle relaxer and the muscle spasms. will attempt medrol dose pack therapy at this time and monitor blood glucose closely. eating and drinking appropriately. No bowel or bladder issues. Labs reviewed, hemodynamically stable. No acute issues at this time. 11/21: Hemodynamically stable, eating and drinking appropriately. Labs reviewed. participating in pt/ot, afebrile, non-toxic appearing. pt. refusing medrol dose pack at this time, pt. wants to wait onemore week of cessation of anti-fungal. no bowel or bladder issues at this time. No acute issues. 11/28: No change in condition. Pt. participating in PT/OT, eating and drinking appropriately. No bowel or bladder issues. afebrile, non-toxic appearing. pt. c/o continued BLE muscle spasms with pain, current regimen non-effective. will start medrol dose pack at this time, hemodynamically stable. No acute issues at this time. 12/05: Hemodynamically stable, eating and drinking appropriately. participating in pt/ot, denies pain at this time, afebrile, non-toxic appearing. pt. had f/u with neurosurgery with recommendations tochange muscle relaxer and f/u with neuro in [address] scan brain. no bowel or bladder issues at this time. No acute issues. 12/10: No change in condition. Pt. participating in PT/OT, eating and drinking appropriately. No bowel or bladder issues. afebrile, non-toxic appearing, Denies Cp, SOB, heart palpitations or dizziness. hemodynamically stable. No acute issues at this time. 12/12: Hemodynamically stable, eating and drinking appropriately. participating in pt/ot, denies pain at this time, afebrile, non-toxic appearing. pt. c/o continues BLE muscle spasms with pain, will start a prednisone taper at this time. no bowel or bladder issues at this time. No acute issues. 12/17: BP soft without dizziness, currently taking metoprolol BID, was taking once daily at home. Metoprolol decreased to once daily in am vs. BID. eating and drinking appropriately. Labs reviewed, BUN39, Cr 0.6, GFR 103, CBC without leukocytosis. participating in pt/ot, pain improved with steroid taper, afebrile, non-toxic appearing. no bowel or bladder issues at this time. No acute issues. 12/19: Hemodynamically stable, eating and drinking appropriately. participating in pt/ot, pt. states the pain is improving with steroid use. Denies Cp, SOB, heart palpitations or dizziness. afebrile, non-toxic appearing. no bowel or bladder issues at this time. No acute issues. 12/24: No change in condition. Pt. participating in PT/OT with sight improvement, eating and drinking appropriately. No bowel or bladder issues. Labs reviewed, BUN 23, Cr 0.6, GFR 103, CBC without leukocytosis. Pt. denies SHANNON, dizziness or double/blurred vision. hemodynamically stable. No acute issues at this time. PAST MEDICAL HISTORY 02/16/2021: Asthma 02/2021: Bladder cancer (HCC) Comment: urothelial carcinoma 04/13/2021: Diabetes mellitus type 1 (HCC) Comment: diagnosed at age 6 02/16/2021: HTN (hypertension) 02/16/2021: Neoplasm of bladder 02/16/2021: Obesity 02/16/2021: Palpitations SUBJECTIVE: Review of Systems Constitutional: Positive for activity change and fatigue. Negative for fever. Respiratory: Negative. Cardiovascular: Negative. Gastrointestinal: Negative. Musculoskeletal: Positive for arthralgias. Neurological: Positive for weakness. Psychiatric/Behavioral: Negative. No reports of falls/injuries, changes in cognition/behaviors, or any uncontrolled pain exacerbations. Medications: Medications listed in Epic during SNF admission may not be current. Refer to facility record. Patient records, current medications, most recent labs, family/social history (unchanged) Reviewed.Refer to facility records. OBJECTIVE: Labs/diagnostics: reviewed Physical Exam: Physical Exam Constitutional: General: She is not in acute distress. Appearance: She is not toxic-appearing. HENT: Mouth/Throat: Mouth: Mucous membranes are moist. Pharynx: Oropharynx is clear. Eyes: Conjunctiva/sclera: Conjunctivae normal. Cardiovascular: Rate and Rhythm: Normal rate. Pulses: Normal pulses. Heart sounds: Normal heart sounds. Pulmonary: Effort: Pulmonary effort is normal. Breath sounds: Normal breath sounds. Abdominal: General: Bowel sounds are normal. Palpations: Abdomen is soft. Skin: General: Skin is warm and dry. Capillary Refill: Capillary refill takes less than 2 seconds. Neurological: Mental Status: She is alert. Mental status is at baseline. Motor: Weakness present. Psychiatric: Mood and Affect: Mood normal. Behavior: Behavior normal. Some elements from the note on 12/20/23 have not changed and have been copied from that note. Any changes in condition have been addressed and charted accordingly. POC discussed with appropriate parties and nursing staff. Electronically signed by Dilcia Carl APRN.STABLE HELPER documented in this encounterThe [facility]09-06-2024 History of Present illness Narrative* Jamie Mccarty MD - 12/21/2023 3:58 PM EDT Images from the original note were not included. INFECTIOUS DISEASES OUTPATIENT FOLLOW-UP NOTE SERVICE DATE: December 21, 2023 Last visit:November 16, 2023 INTERVAL HPI : HPI: 58 year old female with medical history of [...] performed and she was transferred to [facility]. She was found to have DKA. A CT head showed hydrocephalus with MRI on May 29 showing multiple enhancement in the anterior sabra, medulla, and in the spine at the level of C7-T3 and L1-S2. Multiple taps were performed and were unsuccessful. A 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 was placed and patient underwent a [...] lobes (8 mm). LFTs 08/16 normal . 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 was adjusted from 4 to 7 Posaconazole level 2.4 on 08/21/22 Developed a facial rash in September 2022, mainly the malar area, a few spots on the forehead. 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 She was seeing wound care at [facility] for her sacral area ulcer. Rx'd with [...] cytology. Continue surveillance imaging q 6 months. [place] remains in place. ID clinic 01/15/23, doing fairly well overall, tolerating posaconazole. Strength improving and ambulatory, using a cane PRN. No 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 issues. Balance has improved but still needs to work on it. Area of persistent numbness in the upper thoracic region which has not changed much, along with some areas of numbness on the lateral thighs, which has been present all along. Facial rash better, being treated as rosacea by PCP. Glucose well controlled. Plan 1 year of antifungals and then reassess withimaging. ID clinic 03/19/23: Seemed to have reached a plateau with her neuro recovery, with stable balance problems and various areas of sensory loss. Neuro exam showed abnormal Romberg (unable to stand feet together with eyes OPEN), balance deficits, some decreased sensation upper back region (around T5) and patchy areas both anterolateral thighs. Ambulatory with a cane, improving wt, and overall motor strength. Had a near fall in prior week without direct head trauma, probably due in part to chronic balance problems. Also had bilateral shoulder pains and receiving PT. Last MRI brain 07/07/22 (postop) showed FLAIR hyperintensity of trigeminal nerves, facial, and vestibulocochlear, and glossopharyngeal and vagal nerves (no significant contrast enhancement of cranial nerves though). MRI of cord 07/07/22 showed extensive leptomeningeal enhancement throughout the entire spinal canal and extending intothe brainstem and basilar cisterns. Plan for MRI of brain and spine, neurosurgical FU to evaluate shunt settings after MRI. Offered Orthopedics consult for bilateral shoulder pain, presumed rotator cuff ID clinic 05/10/23: MRI brain and spine yesterday with significant improvement in the extensive leptomeningeal enhancement (see below) from the brain stem to the cauda equina. The FLAIR hyperintensityinvolving multiple cranial nerves has resolved. Still some areas of loculation in the prepontine area and in ventral thoracic area (images below), but diffuse lepto and some pachymeningeal enhancement throughout is better. There is a persistent intramedullary T2/STIR hyperintense signal in the thoracic cord T2-T3 to T7-T8. numbness around both the knee areas in particular but also the thighs. This is not painful and she can still feel in the thigh regions as well as around both knees but it is d efinitely less than other areas. Has the sensation that the knees feel puffy but says they are not really puffy There is also an area of partial numbness on the upper back around the area of the incision that is similar; she can feel everything when touched there but the sensation is less than other areas of the back. This matches up with the MRI of the T spine. Admitted to [facility] 06/24-07/13/2023 Presented to [facility] 06/24 with c/f possible SBO. 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 NSGY maintained the externalized shunt at the clavicle via an EVD and the valve was adjusted from 7 to 8 to see if the patient would continue to remain shunt independent for a prolonged course. Following seven days of a clamped EVD, patient was deemed shunt independent and the VPSwas removed by Dr. Figueroa on 07/10/23. -Urology, Dr. Chambers, placed and managed a TOD drain that was removed prior to discharge. Bilateral ureteral stents to be removed 07/26/23 08/30/23 neurosurgery visit: Over the past 2 weeks Chikis has seen worsening in her ambulation. She continues to use a rolator but feels much more unbalanced and is starting to shuffle. No additional neurologic complaints 09/04/23 telehealth visit: she has fallen a few times in this time period. She was concerned that she was unable to get herself up off the floor on her own. 09/20/23 neurology visit -At the end of July, she developed weakness in her BLE. When she goes to turn to stand up, her legs will involuntarily flex and the hip and knee and dorsiflex at the foot. This also happens when sheis laying flat and therapists will have to help her straighten her legs. She has no control over this. It does hurt when this happens in her knee area. This has slowly been getting worse since July. The legs are also weak, R>L, and the right leg will drag when she walks. -On exam, patient has spasticity and triple flexion in BLE in addition to weakness and hyperreflexia. Findings are concerning for worsening hydrocephalus, especially given that her CT head in July showed larger ventricles compared to prior MRI -Imaging ordered but not performed yet presents today 10/04/23 to ID clinic for follow-up 10/04/23: ID clinic-- ongoing spasms in LE with tensing x 1+ month. Worsening LE weakness and spasms, no new numbness. Spasms in legs waking her up from sleep. Frequency increasing from every 2-3 days, to daily every hour or so. Worsening vision also, in July vision OD 20/20, and now 20/40 OD, and weaker on the left. Exam with long tract signs with upgoing plantars bilaterally, increased tone in LE; stable sensory deficits. We felt her symptoms were atypical from hydrocephalus, especially givenlack of any headache. She did report that the painful spasms in both legs started after the 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 was removed at [facility], so it seemed somehow related. The posaconazole level was therapeutic and thelast MRI of the brain and spinal cord showed significant improvement in the fungal infection. It seemed unlikely that her leg spasms were due to uncontrolled fungal infection. She did have some loosestools and we were considering electrolyte abnormalities as a cause of leg cramping. Plan was to continue posaconazole for another 6 months, repeat MRI of the cervical and thoracic spine in October 2023to help decide length of therapy of posaconazole. 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 She suffered a fall after an episode of leg spasms. Admitted to local hospital and dx'd with comminuted fracture of Left distal tibial bone. From there, she was transferred to [facility] She went to [place] 10/08/23 intramedullary nail placement to the Left tibia. CT head 10/08 with evidence of interval increased dilation of the ventricular systems suggestive communicating hydrocephalus with mildtransependymal edema Transferred to [facility]. Seen by ID Dr Dominic Pablo for ID clearance for VPS. Dr Reagan saeed had no evidence of ongoing fungal infection. S/P Ventriculo-atrial shunt (right occipital) 10/15/2023 (Dr Oconnor), Certas valve 6. CSF sent from OR 10/15/23 showed 0 TNC, RBC 14, pro 5, glucose 80. Cryptococcal antigen, fungal cultures negative. MRI C_T spine 10/18/23 showed unchanged loculated arachnoid collection along ventral lower cervical and upper thoracic spine, with cord displacement, no change from 05/09/23. Persistent abnormal intrameduallary cord signal immediately above and below displaced cord, down to T7, minimally improved. Stable LME and pachymeningeal intradural enhancement throughout the C-T and upper lumbar spine, no change. Postop changes T5-6 decompression. D/C'd to [facility] She was continued on posaconazole 300 mg/d. Seen by ID Dr Domingo on 10/26/23. Tolerating posaconazole, stable LFTs, continue same and FU with ID at [facility] Patient contacted me on MyChart on 10/31/23 that she was having ongoing leg spasms. She was on some new medications but were not working. Very difficult to walk with the spasms. She was told that muscle spasms can happen after extended use of posaconazole. On 11/01 I let her know that it was reasonable to stop the posaconazole for 2 weeks and see if her symptoms would improve (but was continued) Went to SNF 11/03/23, [facility]. Per [facility] notes she was stable, participating in PT/OT, eating and drinking appropriately. No bowel or bladder issues. afebrile, non-toxic appearing. Pt.c/o BLE muscle cramps, Mag 1.9, muscle relaxer changed to methocarbamol 750mg po QID. Started on gabapentin 11/04 ID clinic 8/2/24: still on the posaconazole (ie did not stop the medication). No improvement with ongoing LE painful spasms where both legs would flex involuntarily at the knees in a spasm. On Robaxin, tried gabapentin (did not help much). At night the spasms were the worst. Would start in her footand toes, then the spasm would go up her leg, and legs ended up flexed at the knee so that her feetwere back behind her. Thighs got so tight that they couldn't pry them apart. Better during the day but still would get some severe daytime episodes, such as one time during PT she was at the parallelbar and the legs curled up in a spasm, the feet went beneath her and she could not stand up. A few days beforehand, she had been able to use her upper body to get some weight onto her spasming feet and straighten them up. 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 The next day, therapy came and spasms started again. Some have theorized that the spasms were controlled by the anesthesia in the OR the day before. Then she went to [facility], and was able to take a few steps with the parallel bars but nothing like at [facility] on POD 1. Plan was to try a ketty system to pull her along when walking, but never did it. No SHANNON. Shunt 6--> 7. CTH done at rehab after the MRI on 10/18/23; told there was too much fluid being drained and adjusted to 7 (which was the setting of the previous shunt before it was removed at [facility]) Still had decreased sensation in both legs. Can still feel things in feet and legs but felt weird. Able to feel the ground below her. She was wearing a boot on the LLE. Within two days of the surgery on the leg, developed a deep bruise on the heel. Had necrotic tissue on heel and areas on top of foot where skin had rubbed off and raw. Said the boot was never inflated, and caused the skin breakdown. Seen by wound care 11/14 and saidmuch better, skin improving, heel necrosis was more scabs. D/C'd the posaconazole on 11/16/23, with plan to monitor the leg spasms and FU 2 weeks. Had consult with Neurology scheduled also. 11/20/23: plan was medrol dose pack for BLE spasms but pt declined, wanted to wait another week off posaconazole first. continued on methocarbamol 11/28: Ortho clinic; pt had been wt bearing but no walking at all with PT. Incision well healed (left tibia IMN). X rays showed healing distal tib-fib fracture compared to previous 10/25/23. Pressure wound noted on heel; removed boot due to pressure wound, use supportive shoe with WBAT. NSGY clinic: CTH 11/28 with small bilateral subdural hygromas, which may be due to over shunting. Adjusted Certas 7-->8, plan FU [address] (tried to add her on to ID clinic 11/28 but did not see message until later) SNF: started medrol dose pack 11/28 x 1 wk --> no improvement Consult with Dr Daniels in PM&R 12/04/23: on Robaxin without benefit, gabapentin; completing medrol dose pack. Able to walk with PT in the parallel bar but someone needs to stabilize her knees from going into flexion. She transfers using a slide board. Exam with motor weakness especially hip flexors MRC 1-2/5, and knee extension. Spasticity both hip adductors (Warren 2), knee flexors. Spasms seen RLE and LLE. Impaired light touch at T10, absent PP T10; impaired LT in LE bilaterally, absent PP in LE. 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 Approximate neurological level of injury T9. Recommended continuing PT/OT and wound care, contacting ID about restarting posaconazole, D/C robaxin since not helpful, D/C medrol, increase gabapentin 600 mg qHS, trial of baclofen instead of tizanidine due to low BP in office 103/60 . Trial of botox later No improvement in BLE muscle spasms. Posaconazole restarted 12/08/2312/12: continued pain with spasms. Prednisone taper 60, 50, 40, 30, 20, 10, 5 then done Some improvement in pain Currently (12/21/23) - at [facility] - Neurology consult earlier today, Dr Butler. She c/o severe leg edema, felt secondary to gabapentin (started 11/05/23). Exam with severely diminished lower extremity strength, normal tone throughout,normal reflexes. Recommended stopping gabapentin, proceed with Botox injections - she notes the edema in both LE has been much worse over past month or so; she will stop the gabapentin as advised - confirmed that she has been back on posaconazole since 12/07 - still very limited gains in PT/OT. Legs remain weak, R worse than L. R leg drags in therapy. Not walking. Spasms still mainly at night, but also at times during the day during therapy-- brushing across her skin can trigger the BLE spasms. - on prednisone taper; some improvement in the pain component of spasms - Problems with straightening left leg. Heel wound better; continues to see Wound Clinic (mobile); wound eschar being treated with betadine, ABD, Kerlix - Bowels moving better; having formed BMs - Urine-- doing OK. Previously when at rehab, one day noted small pieces of black thread in the urine. Sent picture to her urologist who thought they could be sutures. Thinking this could be dissolvable sutures they used on the ureter during surgery 06/2023 and now they are passing through the stoma. Only the one day-- has not seen any more threads MEDICATIONS: Current Outpatient Medications on File Prior to Visit Medication Sig cyanocobalamin (VITAMIN B-12) 1,000 mcg tab Take 1,000 mcg by mouth. gabapentin (NEURONTIN) 300 mg capsule Take 300 mg by mouth. glucagon 3 mg/actuation nasal spray (BAQSIMI) insulin lispro 100 unit/mL injection Inject 300 Units subcutaneously. Not currently on-- using insulin pump magnesium oxide (MAG-OX) 400 mg (241.3 mg magnesium) tablet Take 800 mg by mouth. ondansetron orally disintegrating (ZOFRAN ODT) 4 mg disintegrating tablet Take 4 mg by mouth every 6 hours as needed. DULCOLAX, BISACODYL, RECTAL by RECTAL route once daily as needed. lisinopril (ZESTRIL) 40 mg tablet Take 40 mg by mouth once daily. acetaminophen (TYLENOL) 650 mg suppository 650 mg by RECTAL route every 4 hours as needed for pain or fever (specify temp.). dextrose 40 % gel Take 15 g by mouth as needed. insulin aspart U-100 (NOVOLOG) 100 unit/mL Use via insulin pump Max daily dose 100 units, DX: E10.65 acetaminophen (TYLENOL) 325 mg tablet 2 tablets by ORAL/FEEDING TUBE route every 6 hours as needed for pain. aspirin, enteric coated (ADULT LOW DOSE ASPIRIN) 81 mg EC tablet Start ASA 81 mg BID on 10/24 Patient should start on October 25, 2023. metoprolol succinate ER (TOPROL XL) 100 mg Take 1 tablet by mouth every 12 hours at 6 am and [address] (NOXAFIL) 100 mg tablet Take 3 tablets by mouth once daily. senna-docusate (SENNA-S) 8.6-50 mg per tablet 1 tablet by ORAL/FEEDING TUBE route two times a day. methocarbamol (ROBAXIN) 500 mg tablet 1 tablet by ORAL/FEEDING TUBE route four times a day as needed. [DISCONTINUED] lactobacillus rhamnosus (CULTURELLE) 10 billion cell capsule Take 1 capsule by mouthonce daily. PHYSICAL EXAM BP 110/50 Pulse 60 Temp 36.7 C (98 F) (Temporal) Resp 16 SpO2 100% SKIN: no rosacea H: right occipital 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 palpable along its track and nontender. EYES: PERRL EOMI no scleral icterus, no conjunctivitis ENT: no oral lesions NECK: no meningismus RESPIRATORY: clear to auscultation CARDIOVASCULAR: S1, S2, no murmurs, no gallops, no rubs, no edema ABDOMINAL: soft, non-distended, non-tender. Ileal conduit stoma R side, pink Insulin pump on Left. MUSCULOSKELETAL: 2-3+ LE edema. Stiffness R shoulder with decreased ROM NEUROLOGICAL: alert, oriented, speech appropriate CRANIAL NERVES: Pupils: OD Right: 3 mm Reactive OS Left: 3 mm Reactive II Visual taylor: not tested III, IV, EOM full V Facial sensation normal to light touch VII Normal strength VIII Normal bilaterally to finger rub IX, X Normal, midline palatal rise XI Symmetric shrug, and head rotation XII Tongue midline, mobile Motor: UE BICEPS TRICEPS DELTS Payment Rep R 5/5 5/5 4/5 5/5 L 5/5 5/5 5/5 5/5 LE Hip Flex Knee Flex Knee Extend Plantarflex Dorsiflex EHL R 1/5 3/5 2/5 2/5 3/5 3/5 L 2/5 3/5 1/5 3/5 3 25 Knee flexion about 45 degrees. Prominent surgical scar left tibia, healed Sensory: light touch: decreased in high thoracic area on back (but able to perceive LT) Lateral thighs also with decreased LT (but able to correctly perceive) Reflexes: RIGHT LEFT Brachioradialis 2+ 2+ Biceps 2+ 2+ Triceps 2+ 2+ Knee 3+ 3+ Achilles 2+ not done Long Tract Signs: Babinski upgoing bilaterally Muscle tone: increased in LE No fasciculations or tremors noted. LABORATORIES Latest Ref Rng 11/05/2023 WBC 3.70 - 11.00 k/uL 4.86 RBC 3.90 - 5.20 m/uL 4.06 Hemoglobin 11.5 - 15.5 g/dL 11.4 (L) Hematocrit 36.0 - 46.0 % 36.2 MCV 80.0 - 100.0 fL 89.2 MCH 26.0 - 34.0 pg 28.1 MCHC 30.5 - 36.0 g/dL 31.5 RDW-CV 11.5 - 15.0 % 16.9 (H) Platelet Count 150 - 400 k/uL 359 MPV 9.0 - 12.7 fL 9.4 Neut% % 58.3 Abs Neut (ANC) 1.45 - 7.50 k/uL 2.83 Lymph% % 25.9 Abs Lymph 1.00 - 4.00 k/uL 1.26 Tama% % 9.9 Abs Tama <0.87 k/uL 0.48 Eosin% % 4.7 Abs Eosin <0.46 k/uL 0.23 Baso% % 1.0 Abs Baso <0.11 k/uL 0.05 Immature Gran % % 0.2 IMMATURE GRANS (ABS) <0.10 k/uL <0.03 NRBC /100 WBC 0.0 Absolute nRBC <0.01 k/uL <0.01 DTYPE Auto Protein, Total 6.3 - 8.0 g/dL 6.3 Albumin 3.9 - 4.9 g/dL 3.8 (L) Calcium 8.5 - 10.2 mg/dL 9.2 Bilirubin, Total 0.2 - 1.3 mg/dL 0.3 Alkaline Phosphatase 34 - 123 U/L 161 (H) AST 13 - 35 U/L 16 ALT 7 - 38 U/L 10 Glucose 74 - 99 mg/dL 94 BUN 7 - 21 mg/dL 19 Creatinine 0.58 - 0.96 mg/dL 0.62 Sodium 136 - 144 mmol/L 139 Potassium 3.7 - 5.1 mmol/L 4.3 Chloride 98 - 107 mmol/L 102 CO2 22 - 30 mmol/L 29 Anion Gap 8 - 15 mmol/L 8 eGFR >=60 mL/min/1.73m 104 Magnesium 1.7 - 2.3 mg/dL 2.3 Phosphorus 2.7 - 4.8 mg/dL 3.8 CRP <0.9 mg/dL <0.3 [facility] Reference Range & Units 06/28/22 14:58 07/02/22 12:42 10/15/23 10:59 CSF Tube Nbr Sterile Container Sterile Container Sterile Container Color, CSF Colorless Colorless Colorless Colorless Supernatant Color, CSF Colorless Not Indicated Not Indicated Not Indicated Clarity, CSF Clear Clear Clear Clear Supernatant Clarity, CSF Clear Not Indicated Not Indicated Not Indicated RBC, CSF 0 - 5 cells/uL 21 (H) 24 (H) 14 (H) Total Nucleated Cells, CSF 0 - 5 cells/uL 3 1 0 DIF TTL, CSF cells counted 100 100 7 Neut%, CSF 0 - 3 % 14 (H) 14 (H) Lymph%, CSF 50 - 90 % 98 (H) 80 71 Tama%, CSF 10 - 50 % 2 (L) 6 (L) Macro%, CSF <1 % 14 (H) Protein, CSF 15 - 45 mg/dL 36 5 (L) Glucose, CSF 40 - 70 mg/dL 106 (H) 58 80 (H) (H): Data is abnormally high (L): Data is abnormally low MICROBIOLOGY: CSF 10/15/23: Gram stain negative, routine culture negative Fungal culture negative, crypto antigen negative Nasal staph 10/10 neg 07/19/22 COVID PCR neg 07/08/22 CSF cryptococcal antigen negative, fungal culture negative 07/02 CSF culture 07/02 NG [place] fungal PCR PCR from biopsy tissue both negative ([facility]) 06/28 CSF (labelled lumbar puncture but is from EVD): MNGS negative 06/27 CSF (labelled lumbar puncture but is from EVD): No growth, Crypto antigen negative 06/26 OR cultures Dural/subdural itradural thoracic lesion Tissue: gram stain negative. NGTD Wound culture: gram stain negative. NGTD AFB smear no organsims. Fungal: smear: no fungus seen [place] bacterial, fungal and AFB PCRs: negative (entire [...] on the AFB or gram stain sections. RADIOLOGY MRI C-T spine 10/18/23: Unchanged loculated arachnoid collection along the ventral lower cervical and upper thoracic spine with posterior cervicothoracic cord displacement, and not significantly changed from 05/09/2023. Persistent abnormal intramedullary cord signal abnormality immediately above and more prominently below the dorsally displaced cord extending to the mid T7 level, minimally improved from 05/09/2023, as detailed. Grossly stable diffuse abnormal leptomeningeal and scattered nodular pachymeningeal intradural enhancement throughout the cervical, thoracic, and upper lumbar spine, not significantly changed in appearance from 05/09/2023 although improved when compared with more remote studies. No new or progressive pathologic enhancement. Stable postoperative changes of T5-T6 dorsal decompression. Multilevel cervicothoracic spondylosis without high-grade spinal canal or neuroforaminal stenosis. Cervical Anatomic Variant: None. Assume 7 cervical vertebrae with counting from the craniocervical junction. Anatomic Thoracic/Lumbar Variant: None. L4-5 is considered the level of the iliac crest and assume there are 5 lumbar-type vertebrae. MRI brain, C-T-L spine 05/09/23: Interval decreased size of the peripherally enhancing collection in the interpeduncular, prepontine and cerebellopontine angle cisterns compared to the prior MRI. 05/09/23: T1 fl3d ax 18, 64 MRI 07/07/22, T1 fl3d, 41, 116 Near complete resolution of leptomeningeal enhancement involving the prepontine cistern and cerebellopontine angle cisterns, along the surface of the sabra and medulla compared to prior exam. No new or progressive pathologic enhancement. 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 Ventricular interstitial edema compared to the prior exam. Right frontal approach ventriculostomy shunt catheter is present. Interval improvement in diffuse abnormal leptomeningeal and pachymeningeal intradural enhancement throughout the cervical, thoracic and lumbar spine compared to the prior MRI 07/07/2022 with residual decreased patchy enhancement in the thoracic and lumbar spine. Patchy residual enhancement along the cauda equina nerve roots and ventral thecal sac in the lumbar spine, improved. Persistent abnormal intramedullary T2/STIR hyperintense signal in the thoracic cord with slight increased caudal extension from T2-T3 to T7-T8 compared to prior exam. Persistent deformity and expansion of the cord at these levels. Unchanged loculated arachnoid collection along the ventral lower cervical and upper thoracic spine with displacement of the cervical thoracic cord compared to prior exam. 05/09/23 SAG T1 ASIF, 7, 8 T2 tirm sag bone 8,8 07/07/22 SAG T1 TSSE 43, 8 Postoperative findings of dorsal decompression at T5-T6 with involution of the previously seen postoperative collection in the laminectomy defect and resolution of mass effect. Unchanged chronic compression fracture of T5 without bony retropulsion or canal stenosis. No significant canal or foraminal stenoses in the cervical, thoracic or lumbar spine. Cervical Anatomic Variant: None. Assume 7 cervical vertebrae with counting from the craniocervical junction. Anatomic Thoracic/Lumbar Variant: None. L4-5 is considered the level of the iliac crest and assume there are 5 lumbar-type vertebrae. ASSESSMENT: 57 year old woman with history [...] in DKA - 05/29/22 MRI brain from [facility] with leptomeningeal enhancement, communicating hydrocephalus - 06/07/22 MRI spine with diffuse LMD throughout spinal cord and cauda equina with loculated CSF in anterior thecal sac at C7-T3 with posterior displacement of cord and cord compression. T4-9 intramedullary hyperintensity suggesting cord edema due to compression superiorly - Course complicated by unsuccessful LP attempts at [facility] then transferred to [facility] - s/p cisternal tap [...] with fungal hyphae confirmed on multiple sections. [place] PCR and cultures all negative, including the tissue block in its entirety sent for universal fungal PCR and negative - CSF 06/28/22 negative on Next Gen sequencing - posaconazole started 06/29/22 - s/p 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 on 07/10.and improving MS since then. - small subdural hygromas over frontal convexities on CT 08/16/22, shunt settings adjusted - facial rash in September 2022, mainly the malar area, a few spots on the forehead. Dx'd with rosacea by PCP and started on metronidazole gel, improved - sacral area ulcer, saw wound care at [facility]. Rx'd with medical honey gel and silicone [...] patchy sensory loss in thighs - near falls - MRI 05/10/23 with significant improvement in the extensive leptomeningeal enhancement from the brain stem to the cauda equina. The FLAIR hyperintensity involving multiple cranial nerves had resolved. Still some areas of loculation in the prepontine area and in ventral thoracic area, but diffuse lepto and some pachymeningeal enhancement throughout was better. 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 NSGY maintained the externalized shuntat the clavicle via an EVD and was the valve was adjusted from 7 to 8 to see if the patient would continue to remain shunt independent for a prolonged course. Following seven days of a clamped EVD, patient was deemed shunt independent and the VPS was removed by Dr. Figueroa on 07/09. Had ureteral stents, later removed - new onset bilateral LE cramps and spasms, starting 1 week postop removal of VPS. Cramps starting from toes and feet and ascending to thighs and groin, uncontrolled dorsiflexion in feet, knee and hip flexion. Every 2-3 days initially then multiple times daily - CT head 07/2023 with increased ventricles Neurology eval 09/20/23: spasticity and triple flexion in BLE in addition to weakness and hyperreflexia. Findings are concerning for worsening hydrocephalus especially with CTH showing increased ventricles - suffered a fall 09/2023 after an episode of leg spasms. Admitted to local hospital and dx'd with comminuted fracture of Left distal tibial bone. From there, she was transferred to [facility] She underwent intramedullary nail placement to the Left tibia on 10/08/2023. She also had a CT BRAIN WO CON on 10/08 with evidence of interval increased dilation of the ventricular systems suggestive communicating hydrocephalus with mild transependymal edema Transferred to [facility]. Seen by ID Dr Dominic Pablo for ID clearance for VPS. Dr Reagan saeed had no evidence of ongoing fungal infection. S/P VA shunt (right occipital) 10/15/2023 (Dr Oconnor),Certas valve 6. CSF sent from OR 10/15/23 showed 0 TNC, RBC 14, pro 5, glucose 80. Cryptococcal antigen, fungal cultures negative to date. MRI C-T spine 10/18/23 showed unchanged loculated arachnoid collection along ventral lower cervical and upper thoracic spine, with cord displacement, no change from 05/09/23. Persistent abnormal intrameduallary cord signal immediately above and below displaced cord, down to T7, minimally improved. Stable LME and pachymeningeal intradural enhancement throughout the C-T and upper lumbar spine, no change. Postop changes T5-6 decompression. D/C'd to [facility] She was continued on posaconazole 300 mg/d. Seen by ID Dr Domingo on 10/26/23. Tolerating posaconazole, stable LFTs, continue same and FU with ID at [facility]. Ongoing leg spasms, gabapentin and Robaxin not working. Labs negative including Mg, Phos, Ca Has had ongoing bilateral leg spasms since 07/2023, starting 1 week postop removal of VPS. Not better after placement of VA shunt 10/15/23. She had benign CSF with no pleocytosis 10/15/23. Fungal CSF culture again negative, with 0 TNCs in CSF MRI 10/18/23 showed no change in the 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 There is still persistent abnormal intrameduallary cord signal immediately above and below displaced cord, down to T7 but this is chronic for many months and unchanged. Similarly she has leptomeningeal enhancement and some intradural enhancement throughout the C-T and upper lumbar spine, but this also is now chronic and unchanged on recent MRI. 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 The reason why she became much worse in 07/2023 days after the 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 was removed in 06/2023 remains unclear-- she did not have the daily, disabling LE spasms prior to this, and her MRIs have been unchanged. PLAN: - continue posaconazole - check labs today, CBC, CMP, CRP - isavuconazole is an option also (given some degree of persistent leptomeningeal enhancement) - D/C gabapentin per Neurology, and monitor LE edema - plan for Botox - FU with me in 2-3 weeks, coordinated with others Jamie Mccarty MD SERVICE DATE: December 21, 2023 I spent a total of 60 minutes on the date of the service which included preparing to see the patient, review of multiple MRI scans, [id number] patient care, completing clinical documentation, obtaining and/or reviewing separately obtained history, performing a medically appropriate examination, counseling and educating the patient/family/caregiver, ordering medications, tests, or procedures, independently interpreting results (not separately reported), communicating results to the patient/family/caregiver, and care coordination (not separately reported) documented in [facility]The [facility] Nurse Note* Chel Fu MA - 12/21/2023 11:16 AM EDT Pt can not stand [facility] Nurse Note* Chel Fu MA - 12/21/2023 11:16 AM EDT Pt can not stand documented in this [facility]The [facility]24 Instructions* Patient Instructions* Reggie Butler MD - 12/21/2023 9:46 AM EDT It was a pleasure to see you today. Here is a reminder of the plan we made: 12/21/2023 Visit: Continue to work with Marlene for shunt adjustments, but this is likely optimized at the time Please try stopping gabapentin as this can sometimes cause leg swelling if this makes spasms worse you can resume the medication for now. In this case we can hold it after you've got the Botox Please proceed to get Botox injections Continue PT Follow up with Dr. Rosado or myself in 3 months documented in this encounterThe [facility]09-[facility]24 History of Present illness Narrative* Reggie Butler MD - 12/21/2023 9:30 AM EDT [facility] - NEW PATIENT EVALUATION Referring Provider: Marlene Cordero [id number] [address] [facility] [id number] Primary Care Provider: Kalli Simons MD [address] [place] [phone] Dear Marlene Cordero: Thank you for referring Ms. Tobar to our clinic today. As you know she is a 58 year old right-handed female who is seen in consultation for evaluation of hydrocephalus since May 2022 . She is seen . Subjective HISTORY OF PRESENT ILLNESS: Initial HPI Patient is referred from neurosurgery for communicating hydrocephalus and gait instability. Patient has a medical history of urothelial carcinoma status post radical cystectomy and ileal conduit in 2021, hypertension, type 1 diabetes, asthma. In April 2022 she was admitted for encephalopathy and was found to have DKA and was subsequently discharged to SNF. On May 27, 2022, the patient was found unresponsive and required CPR. She was found to have DKA again. CT of the head showed hydrocephalus with MRI on May 29 showing multiple enhancements in the anterior sabra, medulla, and in the spine at C7-T3 and L1-S2. Multiple taps were performed and were unsuccessful. A 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 was placed and the patient underwent a meningeal biopsy with pathology showing-a elements. CSF NexGen sequencing was negative. She was admitted to [facility] on June 25, 2023 for obstructed bowel. She had abdominal surgery and at the time the 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 was externalized. Prior to going into the hospital, she was walking with a cane or even without it. When she left the hospital, she was using a walker mainly for balance. She could stand up and get to the bathroom by herself. At the end of July, she developed weakness in her BLE. When she goes to turn to stand up, her legswill involuntarily flex and the hip and knee and dorsiflex at the foot. This also happens when she is laying flat and therapists will have to help her straighten her legs. She has no control over this. It does hurt when this happens in her knee area. This has slowly been getting worse since July. T he legs are also weak, R>L, and the right leg will drag when she walks. She cannot recall if similar symptoms happened when she first developed hydrocephalus as she was encephalopathic at the time, but she did not have these issues afterwards. She did not have any memory issues or urinary issues though she has a urostomy. No other neurologicsymptoms, except her right eye was 20/40 and was previously 20/20 when she went to the eye doctor recently. She saw Dr. Oconnor on September 03 who referred her to see us and ordered a CT head. CT is scheduled at the end of September. Shunt settings were turned down to 8 after last visit with Marlene. Since then is still not walking. Is having trouble with leg that was fractured and unable to straighten it completely. Has able to straighten leg in the recliner when they are completley upright, but at nighttime the left leg tends to go into spasm. Brushing across the skin can sometimes make things start. After surgery was able totake a few steps but this has since deteriorated. PT feels that progress is slow, but this is hard to notice. Questionnaires: In addition, the following activities of daily living that may be affected by tremors were evaluated: Speaking: Feeding: Not affected Bringing Liquids to Mouth: Not affected Hygiene: Not affected Dressing: Not affected Writing: Not affected Working: Number of falls in the Last Month: 0 Mood/Behavior Depression: PHQ-9 Score: 1 usually representing no significant (0-4) depression. Anxiety: NATALIIA-7 Total Score: 1 usually representing no significant (0-4) anxiety. Finally, the following table shows the patient's overall global physical and mental health using the PROMIS scale: PROMIS-10 Flowsheet Row Office Visit from 11/29/2023 in [facility] Most recent reading at 11/27/2023 8:00 AM Office Visit from 11/27/2023 in [facility] [place] Most recent reading at 11/27/2023 8:00 AM Global Physical Health T Score 34.9 34.9 Global Mental Health T Score 45.8 45.8 0-10 Standard Pain Scale 3 3 *PROMIS-10 scoring scale: mean = 50, over 50 is above average, under 50 is below average Review of Systems ALLERGIES Allergen Reactions Demeral [Meperidine] GI Upset Nausea, pt states room spins Flexeril [Cyclobenz* Hives Orphenadrine Other: See Comments, Hives, Rash Versed [Midazolam] Mental Status Change Current Outpatient Medications Medication Sig cyanocobalamin (VITAMIN B-12) 1,000 mcg tab Take 1,000 mcg by mouth. gabapentin (NEURONTIN) 300 mg capsule Take 300 mg by mouth. glucagon 3 mg/actuation nasal spray (BAQSIMI) insulin lispro 100 unit/mL injection Inject 300 Units subcutaneously. Not currently on-- using insulin pump magnesium oxide (MAG-OX) 400 mg (241.3 mg magnesium) tablet Take 800 mg by mouth. ondansetron orally disintegrating (ZOFRAN ODT) 4 mg disintegrating tablet Take 4 mg by mouth every 6 hours as needed. DULCOLAX, BISACODYL, RECTAL by RECTAL route once daily as needed. lisinopril (ZESTRIL) 40 mg tablet Take 40 mg by mouth once daily. acetaminophen (TYLENOL) 650 mg suppository 650 mg by RECTAL route every 4 hours as needed for pain or fever (specify temp.). dextrose 40 % gel Take 15 g by mouth as needed. insulin aspart U-100 (NOVOLOG) 100 unit/mL Use via insulin pump Max daily dose 100 units, DX: E10.65 acetaminophen (TYLENOL) 325 mg tablet 2 tablets by ORAL/FEEDING TUBE route every 6 hours as needed for pain. aspirin, enteric coated (ADULT LOW DOSE ASPIRIN) 81 mg EC tablet Start ASA 81 mg BID on 10/24 Patient should start on October 25, 2023. metoprolol succinate ER (TOPROL XL) 100 mg Take 1 tablet by mouth every 12 hours at 6 am and [address] (NOXAFIL) 100 mg tablet Take 3 tablets by mouth once daily. senna-docusate (SENNA-S) 8.6-50 mg per tablet 1 tablet by ORAL/FEEDING TUBE route two times a day. methocarbamol (ROBAXIN) 500 mg tablet 1 tablet by ORAL/FEEDING TUBE route four times a day as needed. No current facility-administered medications for this visit. Past Medical and Surgical History: has a past medical history of Asthma (02/16/2021), Bladder cancer (HCC) (02/2021), Diabetes mellitus type 1 (HCC) (04/13/2021), HTN (hypertension) (02/16/2021), Neoplasm of bladder (02/16/2021), Obesity (02/16/2021), and Palpitations (02/16/2021). has a past surgical history that includes past surgical history of; past surgical history of; past surgical history of (02/18/2021); cysto.panendo (05/25/2021); removal of bladder & nodes; vaginal hysterectomy; exploratory of abdomen (12/17/2021); and cystectomy w/bi pelvic lymphadenectomy (04/2021). Social History Tobacco Use Smoking status: Never Smokeless tobacco: Never Vaping Use Vaping status: Never Used Substance Use Topics Alcohol use: Not Currently Drug use: Never Objective Physical Examination: Vital Signs: BP 130/54 (BP Site: Right Arm, BP Position: Sitting, BP Cuff Size: Regular Adult) Pulse 75 [id number]% None for this encounter General: Awake, alert, interactive, no acute distress, good nutritional status, normal development,well-kept Neurological Exam Mental Status Awake, alert and oriented to person, place and time. Recent and remote memory are intact. Speech isnormal. Language is fluent with no aphasia. Cranial Nerves Cranial nerves normal unless stated otherwise. Motor Normal muscle bulk throughout. Strength is 5/5 in all four extremities except as noted. Severely diminished lower extremity strength Normal tone throughout. No upper extremity bradkinesia or tremor . Reflexes Right Left Brachioradialis 2+ 2+ Biceps 2+ 2+ Patellar 2+ 2+ Achilles 1+ 1+ Assessment Ms. 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 She developed progressive weakness and involuntary movements in BLE. On exam, patient had spasticity and triple flexion in BLE in addition to weakness and hyperreflexia. Findings were concerningfor worsening hydrocephalus, especially given that her CT head in July 2023 showed larger ventricles compared to prior MRI. MRI of neuraxis was also repeated to rule out repeat infection. Shunt was placed again. On subsequent examination the dystonia had largely improved. However she suffered a leg fracture which has made recovery more completed than anticipated. Also has severe lower extremity edema, which may be secondary to gabapentin. The following are the current problems noted and addressed during this visit: Other hydrocephalus (hcc) Plan 12/21/2023 Visit: Continue to work with Marlene for shunt adjustments, but this is likely optimized at the time Please try stopping gabapentin as this can sometimes cause leg swelling if this makes spasms worse you can resume the medication for now. In this case we can hold it after you've got the Botox Please proceed to get Botox injections Continue PT Follow up with Dr. Rosado or myself in 3 months Interested in clinical research? Not currently Thank you for allowing me to be part of the clinical care of this patient! I look forward to continued participation in the patient s care with you. Please do not hesitate to call with any questions. Sincerely, Reggie Butler MD Associate Staff Movement disorders [facility] documented in this encounterThe [facility]09-05-2024 History of Present illness Narrative* Dilcia Carl APRN.STABLE HELPER - 12/20/2023 6:27 PM EDT Images from the original note were not included. Connected Care Unit Progress Note Patient Name: Chikis Tobar Patient Facility: [facility] Admit Date 11/09/23 Level of Care: Skilled SNF Attending: Amelia Parisi D.O. Service Date: 12/20/2023 Code Status: Chief Complaint: Evaluation regarding hydrocephalus, meningitis ASSESSMENT AND PLAN ASSESSMENT/PLAN: 1. 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 denies SHANNON, dizziness or double/blurred vision at this time 11/15: No change in condition. Pt. participating in PT/OT, eating and drinking appropriately. No bowel or bladder issues. afebrile, non-toxic appearing. Pt.c/o BLE muscle cramps, Mag 1.9, muscle relaxer changed to methocarbamol 750mg po QID. Pt. has f/u with MD today to possibly hold anti-fungal due to muscle spasms that may be 2/2 anti-fungal. hemodynamically stable. No acute issues at this time. 11/19: No change in condition. Pt. participating in PT/OT as tolerated with BLE muscle spasms. Pt. states there is slight improvement with change in muscle relaxer and the muscle spasms. will attempt medrol dose pack therapy at this time and monitor blood glucose closely. eating and drinking appropriately. No bowel or bladder issues. Labs reviewed, hemodynamically stable. No acute issues at this time. 11/21: Hemodynamically stable, eating and drinking appropriately. Labs reviewed. participating in pt/ot, afebrile, non-toxic appearing. pt. refusing medrol dose pack at this time, pt. wants to wait onemore week of cessation of anti-fungal. no bowel or bladder issues at this time. No acute issues. 11/28: No change in condition. Pt. participating in PT/OT, eating and drinking appropriately. No bowel or bladder issues. afebrile, non-toxic appearing. pt. c/o continued BLE muscle spasms with pain, current regimen non-effective. will start medrol dose pack at this time, hemodynamically stable. No acute issues at this time. 12/05: Hemodynamically stable, eating and drinking appropriately. participating in pt/ot, denies pain at this time, afebrile, non-toxic appearing. pt. had f/u with neurosurgery with recommendations tochange muscle relaxer and f/u with neuro in [address] scan brain. no bowel or bladder issues at this time. No acute issues. 12/10: No change in condition. Pt. participating in PT/OT, eating and drinking appropriately. No bowel or bladder issues. afebrile, non-toxic appearing, Denies Cp, SOB, heart palpitations or dizziness. hemodynamically stable. No acute issues at this time. 12/12: Hemodynamically stable, eating and drinking appropriately. participating in pt/ot, denies pain at this time, afebrile, non-toxic appearing. pt. c/o continues BLE muscle spasms with pain, will start a prednisone taper at this time. no bowel or bladder issues at this time. No acute issues. 12/17: eating and drinking appropriately. Labs reviewed, BUN 39, Cr 0.6, GFR 103, CBC without leukocytosis. participating in pt/ot, pain improved with steroid taper, afebrile, non-toxic appearing. no bowel or bladder issues at this time. No acute issues. 12/19: Hemodynamically stable, eating and drinking appropriately. participating in pt/ot, pt. states the pain is improving with steroid use. Denies Cp, SOB, heart palpitations or dizziness. afebrile, non-toxic appearing. no bowel or bladder issues at this time. No acute issues. - prednisone taper, 60, 50, 40, 30, 20, 10, 5 then done - continue ASA 81mg po BID for DVT prophylaxis - continue pain control and muscle relaxer - continue posaconazole - continue to monitor CBC/CMP - continue to monitor Dilcia Carl Appointments for Next 60 Days Date Time Provider Location Dept Phone 12/20/2023 1:00 PM SHARAN DOMINGUEZ [facility] [phone] 12/21/2023 9:00 AM REGGIE BUTLER [facility] [phone] 01/09/2024 10:00 AM JAMIE MCCARTY [facility] [phone] 01/10/2024 10:20 AM [facility] 01/10/2024 11:00 AM AASHISH MONGE [facility] [phone] 01/10/2024 2:[address] 2 MAIN QB (I-STAT) [facility] [phone] 01/10/2024 3:00 PM MARLENE CORDERO [facility] [phone] 01/11/2024 2:30 PM NOEL DANIELS F [phone] 01/11/2024 3:15 PM NOEL DANIELS F [phone] 02/06/2024 11:00 AM RUDDY GUPTA [facility] [phone] HPI: (Per discharge summary) 58-year-old female with PMHx signficant for T1DM cb/ DKA, urothelial carcinoma of the bladder s/p radical cystectomy and ileal conduit c/b SBO (Dec 2021), HTN, chronic sinusitis, asthma, persistent encephalopathy and hydrocephalus. 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 She was followed by ID at [facility] and was on posaconazole. She is s/p shunt externalization at [facility] (06/27/23) during abdominal surgery for SBO and eventual VPS explantation (07/10/23). She was o riginally scheduled for shunt reinternalization with Dr. Oconnor on 11/20/23. She fell due to leg spasms and presented to OSH ED and admitted on 10/07/23. Found to have L tibial fx s/p intramed[facility] nailDr. [facility]ri [facility] (10/08[facility]). She was then [facility] [place] [facility] [place]. She is s/p VPS reimplantation by Dr. Oconnor and Dr. Evans on 10/14. Intraoperative CSF cultures without growth. Plan to continue posaconazole at least through end of this year. She isto start asa bid on 10/24 for dvt ppx. Seen by [facility] for wounds as below - Coccyx : healed. -Left posterior heel: POA -Left anterior foot : Deep Tissue Pressure Injury, acquired While in the ARU, pt received physical therapy for range of motion, transfer training, endurance/ balance, fall prevention, and gait training with appropriate assistive devices, occupational therapy for activity of daily living/equipment/ functional transfer evaluation and training, and speech thera py for language evaluation and speech re-education. Team conferences were held to monitor progress and tailor program to patients needs. Patient had appropriate pain management, bowel management, sleep management, GI and DVT prophylaxis. Pt was stable throughout ARU course without major medical comp lication. Pt participated in all therapies and although with significant gradual improvement, would benefit from continuing skilled therapies and nursing at SNF prior to returning home. 10/23 stop robaxin, add zanaflex 4mg at bedtime and 2mg tid prn 10/27 zanaflex scheduled qid 10/28 d/w IM get f/u head CT d/t unresolved spasticity with pain 10/30 Shunt adjusted by Neurosurg from 6 to 7 11/04 add gabapentin 300mg at bedtime Interval HPI: Pt. is alert, calm and cooperative during ROS and physical exam. There are no concerns for bowel issues. ileal conduit without complications, appropriate output without sediment or hematuria. Pt. is eating and drinking fluids appropriately. walker boot in place, denies pain at this time. pt. denies SHANNON, dizziness or double/blurred vision at this time. All labs and vital signs were reviewed. Pt. is participating in PT/OT without complications. Per nursing staff there are no acute changes to be addressed at this time. 8/2: No change in condition. Pt. participating in PT/OT, eating and drinking appropriately. No bowel or bladder issues. afebrile, non-toxic appearing. Pt.c/o BLE muscle cramps, Mag 1.9, muscle relaxer changed to methocarbamol 750mg po QID. Pt. has f/u with MD today to possibly hold anti-fungal due to muscle spasms that may be 2/2 anti-fungal. hemodynamically stable. No acute issues at this time. 8/6: No change in condition. Pt. participating in PT/OT as tolerated with BLE muscle spasms. Pt. states there is slight improvement with change in muscle relaxer and the muscle spasms. will attempt medrol dose pack therapy at this time and monitor blood glucose closely. eating and drinking appropriately. No bowel or bladder issues. Labs reviewed, hemodynamically stable. No acute issues at this time. 11/21: Hemodynamically stable, eating and drinking appropriately. Labs reviewed. participating in pt/ot, afebrile, non-toxic appearing. pt. refusing medrol dose pack at this time, pt. wants to wait onemore week of cessation of anti-fungal. no bowel or bladder issues at this time. No acute issues. 11/28: No change in condition. Pt. participating in PT/OT, eating and drinking appropriately. No bowel or bladder issues. afebrile, non-toxic appearing. pt. c/o continued BLE muscle spasms with pain, current regimen non-effective. will start medrol dose pack at this time, hemodynamically stable. No acute issues at this time. 12/05: Hemodynamically stable, eating and drinking appropriately. participating in pt/ot, denies pain at this time, afebrile, non-toxic appearing. pt. had f/u with neurosurgery with recommendations tochange muscle relaxer and f/u with neuro in [address] scan brain. no bowel or bladder issues at this time. No acute issues. 12/10: No change in condition. Pt. participating in PT/OT, eating and drinking appropriately. No bowel or bladder issues. afebrile, non-toxic appearing, Denies Cp, SOB, heart palpitations or dizziness. hemodynamically stable. No acute issues at this time. 12/12: Hemodynamically stable, eating and drinking appropriately. participating in pt/ot, denies pain at this time, afebrile, non-toxic appearing. pt. c/o continues BLE muscle spasms with pain, will start a prednisone taper at this time. no bowel or bladder issues at this time. No acute issues. 12/17: BP soft without dizziness, currently taking metoprolol BID, was taking once daily at home. Metoprolol decreased to once daily in am vs. BID. eating and drinking appropriately. Labs reviewed, BUN39, Cr 0.6, GFR 103, CBC without leukocytosis. participating in pt/ot, pain improved with steroid taper, afebrile, non-toxic appearing. no bowel or bladder issues at this time. No acute issues. 12/19: Hemodynamically stable, eating and drinking appropriately. participating in pt/ot, pt. states the pain is improving with steroid use. Denies Cp, SOB, heart palpitations or dizziness. afebrile, non-toxic appearing. no bowel or bladder issues at this time. No acute issues. PAST MEDICAL HISTORY 02/16/2021: Asthma 02/2021: Bladder cancer (HCC) Comment: urothelial carcinoma 04/13/2021: Diabetes mellitus type 1 (HCC) Comment: diagnosed at age 6 02/16/2021: HTN (hypertension) 02/16/2021: Neoplasm of bladder 02/16/2021: Obesity 02/16/2021: Palpitations SUBJECTIVE: Review of Systems Constitutional: Positive for activity change and fatigue. Negative for fever. Respiratory: Negative. Cardiovascular: Negative. Gastrointestinal: Negative. Musculoskeletal: Positive for arthralgias. Neurological: Positive for weakness. Psychiatric/Behavioral: Negative. No reports of falls/injuries, changes in cognition/behaviors, or any uncontrolled pain exacerbations. Medications: Medications listed in Epic during SNF admission may not be current. Refer to facility record. Patient records, current medications, most recent labs, family/social history (unchanged) Reviewed.Refer to facility records. OBJECTIVE: Labs/diagnostics: reviewed Physical Exam: Physical Exam Constitutional: General: She is not in acute distress. Appearance: She is not toxic-appearing. HENT: Mouth/Throat: Mouth: Mucous membranes are moist. Pharynx: Oropharynx is clear. Eyes: Conjunctiva/sclera: Conjunctivae normal. Cardiovascular: Rate and Rhythm: Normal rate. Pulses: Normal pulses. Heart sounds: Normal heart sounds. Pulmonary: Effort: Pulmonary effort is normal. Breath sounds: Normal breath sounds. Abdominal: General: Bowel sounds are normal. Palpations: Abdomen is soft. Skin: General: Skin is warm and dry. Capillary Refill: Capillary refill takes less than 2 seconds. Neurological: Mental Status: She is alert. Mental status is at baseline. Motor: Weakness present. Psychiatric: Mood and Affect: Mood normal. Behavior: Behavior normal. Some elements from the note on 12/18/23 have not changed and have been copied from that note. Any changes in condition have been addressed and charted accordingly. POC discussed with appropriate parties and nursing staff. Electronically signed by Dilcia Carl APRN.STABLE HELPER documented in this encounterThe [facility]09-05-2024 History of Present illness Narrative* Sharan Dominguez APRN.STABLE HELPER - 12/20/2023 5:44 AM EDT Images from the original note were not included. [facility] PROVIDER PROGRAM - FOLLOW UP VISIT PATIENT NAME: Chikis Tobar SERVICE DATE: 12/20/[address]23 PL[address] OF SERVICE FOR THIS VISIT: [facility] (POS [facility] Facility Name: [facility] Level of Care: Skilled Asked to see patient at the request of and in collaboration with Dr. Parisi for my opinion regardingpressure injury of the left heel. Requested to see patient today for wound assessment and treatment evaluation CHIEF COMPLAINT: Follow up wound care evaluation of pressure injury of the left heel. INTERVAL HISTORY Information provided by: Chart review and Patient 58 year old y/o female who presents with a wound Location: Left posterior heel Onset: POA Aggravating factors: Diabetes mellitus, Mechanical devices related, Positioning, and Pressure Wound etiology: Pressure Associated pain with wound: Yes Relieving factors for wound pain: Positioning Treatments: Current: Betadine, ABD, kerlix Remainder unchanged Future Appointments Date Time Provider Department Center 12/20/2023 1:00 PM Sharan Dominguez APRN.STABLE HELPER [facility] 12/21/2023 9:00 AM Reggie Butler MD N[facility]ld[facility] 01/09/2024 10:00 AM Jamie Mccarty MD INF[facility] Mn G dg 01/10/2024 10:20 AM XR [facility] 01/10/2024 11:00 AM Aashish Monge PA-C [facility] 01/10/2024 2:[address] 2 MAIN QB (I-STAT) [facility] Mn Q [facility]ld[facility] 01/10/2024 3:00 PM Marlene Cordero PA-C [facility] S Bld[facility] 01/11/2024 2:30 PM Noel Daniels MD [facility] 01/11/2024 3:15 PM Noel Daniels MD [facility] 02/06/2024 11:00 AM Ruddy Gupta MD ENDOAV Re[facility] 09/16/2024 10:45 AM LAB MAIN Q2-1 LBQ2-1 Mn Q Bldg 09/16/2024 11:[address] 2 MAIN QB (I-STAT) [facility] IMPRESSION/RECOMMENDATIONS The patient's age, altered mobility and other co morbidities are likely to impact wound and skin integrity Additional impediments to healing Diabetic: Yes Anticoagulation: Aspirin Antibiotics: No Steroids: Prednisone (L89.620) Pressure injury of left heel, unstageable (HCC) (primary encounter diagnosis) Comment: Slight decrease in length noted to unstageable pressure injury of the posterior aspect of the left heel at today's visit. Wound remains comprised of dry, firm eschar without lifting or drainage noted. Periwound remains dry and intact with some blanchable erythema. Will plan to continue betadine to the area. DP and PT pulses +2. Remains somewhat tender on exam. HPI: Patient s/p left tibia fracture with use of walking boot post-operatively, subsequent pressureinjury d/t mechanical device. Patient given OK per orthopedics to leave boot off to aide in wound healing and pressure reduction. Plan: -Monitor for any s/s of infection- notify STABLE HELPER/MD of any pertinent findings -Wound care orders as follows for bacteriostatic properties: Wound Care Order: - Cleanse wound and periwound skin with normal saline and gauze, gently pat dry. - Apply betadine liberally to wound and periwound - Cover with ABD and kerlix - Change dressing daily and PRN. (R53.81) Physical deconditioning Comment: Patient requires assistance with ADL's and mobility d/t recent left tibia fracture, hydrocephalus. Working with PT and OT. Plan: - Turn and reposition frequently - Frequent weight shifts when seated - Nutritional support as appropriate FOLLOW UP PLAN Weekly as needed SUBJECTIVE REVIEW: Information provided by: Patient and Facility nurse Review of Systems Constitutional: Negative for chills, diaphoresis and fever. HENT: Negative. Respiratory: Negative. Cardiovascular: Negative. Gastrointestinal: Negative. Genitourinary: + urostomy Musculoskeletal: Positive for arthralgias and gait problem. Skin: Positive for wound. Neurological: Positive for weakness (Generalized). Psychiatric/Behavioral: Negative Nutrition DIET: NCS (No Concentrated Sweets) diet, Regular texture, Regular/Thin consistency SUPPLEMENTS: Anuel APPETITE: fair MEDICATION REVIEW Medications listed in Epic during SNF admission may not be current. Refer to facility record Medications Reviewed per facility list done: Yes Allergies reviewed per facility list Prior chart notes reviewed SOCIAL HISTORY Tobacco Use Past: No Current: No OBJECTIVE Physical Exam Vitals and nursing note reviewed. Constitutional: General: She is not in acute distress. Appearance: She is well-groomed and normal weight. She is not ill-appearing or toxic-appearing. Comments: Pleasant middle aged female sitting upright in wheelchair, calm and cooperative. HENT: Head: Normocephalic and atraumatic. Nose: No congestion. Mouth/Throat: Mouth: Mucous membranes are moist. Pharynx: Oropharynx is clear. Cardiovascular: Rate and Rhythm: Normal rate. Pulses: Normal pulses. Pulmonary: Effort: Pulmonary effort is normal. No respiratory distress. Abdominal: General: Abdomen is flat. There is no distension. Palpations: Abdomen is soft. Musculoskeletal: General: Tenderness (LLE). Right lower leg: +1 edema. Left lower leg: +1 edema. Skin: General: Skin is warm and dry. Findings: Wound (See HPI) present. Neurological: Mental Status: She is alert and oriented to person, place, and time. Motor: Weakness present. Gait: Gait abnormal. Psychiatric: Attention and Perception: Attention normal. Mood and Affect: Mood and affect normal. Speech: Speech normal. Behavior: Behavior normal. Behavior is cooperative. WOUND ASSESSMENT Location: Left Posterior Heel Type: pressure injury Stage: Unstageable Exposed structure:None Progress: Stable- similar measurements Wound measurements (cm): 2.6 x 2.1 x UTD Full thickness: N/A Tunneling/undermining: none Wound tissue color: 100% firm, dry eschar Periwound tissue: dry, intact, blanchable erythema Drainage: none Drainage odor: None ANCILLARY DATA REVIEWED Managed by facility. Counseled on wound prognosis and plan of care, Counseled patient, family or facility staff on woundhealing process. Counseled on treatment options, and Written wound care instructions left in facility. Visit billing based on time: No, visit will not be billed on time? I spent a total of 20 minutes on the date of the service which included preparing to see the patient, [id number] patient care, completing clinical documentation, reviewing separately obtained history, performing a medically appropriate examination, counseling and educating the patient/family/caregiver, and communicating with other HCPs (not separately reported). Joint visit made with Daniel Sandoval LPN. Plan of Care discussed with facility nursing staff, patient, and referring provider. Wound care was performed during visit. All documentation from previous visit of 12/13/2023 was copied and pasted, documentation has been reviewed and edited as necessary for today's visit on 12/20/2023. SIGNATURE: Sharan Dominguez APRN.MARIS,GONZALEZ PATIENT NAME: Chikis Tobar DATE: 12/20/2023 OFFICE #: [phone] PAGER/CELL: [phone] documented in this encounterThe [facility] System09-03-2024 History of Present illness Narrative* Dilcia Carl APRN.MARIS - 12/18/2023 3:25 PM EDT Images from the original note were not included. Connected Care Unit Progress Note Patient Name: Chikis Tobar Patient Facility: [facility] Admit Date 11/09/23 Level of Care: Skilled SNF Attending: Amelia Parisi D.O. Service Date: 12/18/2023 Code Status: Chief Complaint: Evaluation regarding hydrocephalus, meningitis ASSESSMENT AND PLAN ASSESSMENT/PLAN: 1. 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 denies SHANNON, dizziness or double/blurred vision at this time 8/2: No change in condition. Pt. participating in PT/OT, eating and drinking appropriately. No bowel or bladder issues. afebrile, non-toxic appearing. Pt.c/o BLE muscle cramps, Mag 1.9, muscle relaxer changed to methocarbamol 750mg po QID. Pt. has f/u with MD today to possibly hold anti-fungal due to muscle spasms that may be 2/2 anti-fungal. hemodynamically stable. No acute issues at this time. 8/6: No change in condition. Pt. participating in PT/OT as tolerated with BLE muscle spasms. Pt. states there is slight improvement with change in muscle relaxer and the muscle spasms. will attempt medrol dose pack therapy at this time and monitor blood glucose closely. eating and drinking appropriately. No bowel or bladder issues. Labs reviewed, hemodynamically stable. No acute issues at this time. 11/21: Hemodynamically stable, eating and drinking appropriately. Labs reviewed. participating in pt/ot, afebrile, non-toxic appearing. pt. refusing medrol dose pack at this time, pt. wants to wait onemore week of cessation of anti-fungal. no bowel or bladder issues at this time. No acute issues. 11/28: No change in condition. Pt. participating in PT/OT, eating and drinking appropriately. No bowel or bladder issues. afebrile, non-toxic appearing. pt. c/o continued BLE muscle spasms with pain, current regimen non-effective. will start medrol dose pack at this time, hemodynamically stable. No acute issues at this time. 12/05: Hemodynamically stable, eating and drinking appropriately. participating in pt/ot, denies pain at this time, afebrile, non-toxic appearing. pt. had f/u with neurosurgery with recommendations tochange muscle relaxer and f/u with neuro in [address] scan brain. no bowel or bladder issues at this time. No acute issues. 12/10: No change in condition. Pt. participating in PT/OT, eating and drinking appropriately. No bowel or bladder issues. afebrile, non-toxic appearing, Denies Cp, SOB, heart palpitations or dizziness. hemodynamically stable. No acute issues at this time. 12/12: Hemodynamically stable, eating and drinking appropriately. participating in pt/ot, denies pain at this time, afebrile, non-toxic appearing. pt. c/o continues BLE muscle spasms with pain, will start a prednisone taper at this time. no bowel or bladder issues at this time. No acute issues. 12/17: eating and drinking appropriately. Labs reviewed, BUN 39, Cr 0.6, GFR 103, CBC without leukocytosis. participating in pt/ot, pain improved with steroid taper, afebrile, non-toxic appearing. no bowel or bladder issues at this time. No acute issues. - prednisone taper, 60, 50, 40, 30, 20, 10, 5 then done - continue ASA 81mg po BID for DVT prophylaxis - continue pain control and muscle relaxer - continue posaconazole - continue to monitor CBC/CMP - continue to monitor Essential hypertension BP soft without dizziness, currently taking metoprolol BID, was taking once daily at home Metoprolol decreased to once daily in am vs. BID - continue BB once daily - continue to monitor BP Dilcia Carl Appointments for Next 60 Days Date Time Provider Location Dept Phone 12/20/2023 1:00 PM SHARAN DOMINGUEZ [facility] [phone] 12/21/2023 9:00 AM REGGIE BUTLER [facility] [phone] 01/09/2024 10:00 AM JAMIE MCCARTY [facility] [phone] 01/10/2024 10:20 AM [facility]R [facility] 01/10/2024 11:00 AM AASHISH MONGE [facility] [phone] 01/10/2024 2:[address] 2 MAIN QB (I-STAT) [facility] [phone] 01/10/2024 3:00 PM MARLENE CORDERO [facility] [phone] 01/11/2024 2:30 PM NOEL DANIELS [facility] [phone] 01/11/2024 3:15 PM NEOL DANIELS [facility] [phone] 02/06/2024 11:00 AM RUDDY GUPTA [facility] [phone] HPI: (Per discharge summary) 58-year-old female with PMHx signficant for T1DM cb/ DKA, urothelial carcinoma of the bladder s/p radical cystectomy and ileal conduit c/b SBO (Dec 2021), HTN, chronic sinusitis, asthma, persistent encephalopathy and hydrocephalus. 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 She was followed by ID at [facility] and was on posaconazole. She is s/p shunt externalization at [facility] (06/27/23) during abdominal surgery for SBO and eventual VPS explantation (07/10/23). She was o riginally scheduled for shunt reinternalization with Dr. Oconnor on 11/20/23. She fell due to leg spasms and presented to OSH ED and admitted on 10/07/23. Found to have L tibial fx s/p [facility]amed[facility]. [facility] (10[facility]). She was then [place] [facility] [place]. She is s/p VPS reimplantation by Dr. Oconnor and Dr. Evans on 10/14. Intraoperative CSF cultures without growth. Plan to continue posaconazole at least through end of this year. She isto start asa bid on 10/24 for dvt ppx. Seen by WOCN for wounds as below - Coccyx : healed. -Left posterior heel: POA -Left anterior foot : Deep Tissue Pressure Injury, acquired While in the ARU, pt received physical therapy for range of motion, transfer training, endurance/ balance, fall prevention, and gait training with appropriate assistive devices, occupational therapy for activity of daily living/equipment/ functional transfer evaluation and training, and speech thera py for language evaluation and speech re-education. Team conferences were held to monitor progress and tailor program to patients needs. Patient had appropriate pain management, bowel management, sleep management, GI and DVT prophylaxis. Pt was stable throughout ARU course without major medical comp lication. Pt participated in all therapies and although with significant gradual improvement, would benefit from continuing skilled therapies and nursing at SNF prior to returning home. 10/23 stop robaxin, add zanaflex 4mg at bedtime and 2mg tid prn 10/27 zanaflex scheduled qid 10/28 d/w IM get f/u head CT d/t unresolved spasticity with pain 10/30 Shunt adjusted by Neurosurg from to 11/04 add gabapentin 300mg at bedtime Interval HPI: Pt. is alert, calm and cooperative during ROS and physical exam. There are no concerns for bowel issues. ileal conduit without complications, appropriate output without sediment or hematuria. Pt. is eating and drinking fluids appropriately. walker boot in place, denies pain at this time. pt. denies SHANNON, dizziness or double/blurred vision at this time. All labs and vital signs were reviewed. Pt. is participating in PT/OT without complications. Per nursing staff there are no acute changes to be addressed at this time. 11/15: No change in condition. Pt. participating in PT/OT, eating and drinking appropriately. No bowel or bladder issues. afebrile, non-toxic appearing. Pt.c/o BLE muscle cramps, Mag 1.9, muscle relaxer changed to methocarbamol 750mg po QID. Pt. has f/u with MD today to possibly hold anti-fungal due to muscle spasms that may be 2/2 anti-fungal. hemodynamically stable. No acute issues at this time. 11/19: No change in condition. Pt. participating in PT/OT as tolerated with BLE muscle spasms. Pt. states there is slight improvement with change in muscle relaxer and the muscle spasms. will attempt medrol dose pack therapy at this time and monitor blood glucose closely. eating and drinking appropriately. No bowel or bladder issues. Labs reviewed, hemodynamically stable. No acute issues at this time. 11/21: Hemodynamically stable, eating and drinking appropriately. Labs reviewed. participating in pt/ot, afebrile, non-toxic appearing. pt. refusing medrol dose pack at this time, pt. wants to wait onemore week of cessation of anti-fungal. no bowel or bladder issues at this time. No acute issues. 11/28: No change in condition. Pt. participating in PT/OT, eating and drinking appropriately. No bowel or bladder issues. afebrile, non-toxic appearing. pt. c/o continued BLE muscle spasms with pain, current regimen non-effective. will start medrol dose pack at this time, hemodynamically stable. No acute issues at this time. 12/05: Hemodynamically stable, eating and drinking appropriately. participating in pt/ot, denies pain at this time, afebrile, non-toxic appearing. pt. had f/u with neurosurgery with recommendations tochange muscle relaxer and f/u with neuro in [address] scan brain. no bowel or bladder issues at this time. No acute issues. 12/10: No change in condition. Pt. participating in PT/OT, eating and drinking appropriately. No bowel or bladder issues. afebrile, non-toxic appearing, Denies Cp, SOB, heart palpitations or dizziness. hemodynamically stable. No acute issues at this time. 12/12: Hemodynamically stable, eating and drinking appropriately. participating in pt/ot, denies pain at this time, afebrile, non-toxic appearing. pt. c/o continues BLE muscle spasms with pain, will start a prednisone taper at this time. no bowel or bladder issues at this time. No acute issues. 12/17: BP soft without dizziness, currently taking metoprolol BID, was taking once daily at home. Metoprolol decreased to once daily in am vs. BID. eating and drinking appropriately. Labs reviewed, BUN39, Cr 0.6, GFR 103, CBC without leukocytosis. participating in pt/ot, pain improved with steroid taper, afebrile, non-toxic appearing. no bowel or bladder issues at this time. No acute issues. PAST MEDICAL HISTORY 02/16/2021: Asthma 02/2021: Bladder cancer (HCC) Comment: urothelial carcinoma 04/13/2021: Diabetes mellitus type 1 (HCC) Comment: diagnosed at age 6 02/16/2021: HTN (hypertension) 02/16/2021: Neoplasm of bladder 02/16/2021: Obesity 02/16/2021: Palpitations SUBJECTIVE: Review of Systems Constitutional: Positive for activity change and fatigue. Negative for fever. Respiratory: Negative. Cardiovascular: Negative. Gastrointestinal: Negative. Musculoskeletal: Positive for arthralgias. Neurological: Positive for weakness. Psychiatric/Behavioral: Negative. No reports of falls/injuries, changes in cognition/behaviors, or any uncontrolled pain exacerbations. Medications: Medications listed in [facility] during SNF admission may not be current. Refer to facility record. Patient records, current medications, most recent labs, family/social history (unchanged) Reviewed.Refer to facility records. OBJECTIVE: Labs/diagnostics: reviewed Physical Exam: Physical Exam Constitutional: General: She is not in acute distress. Appearance: She is not toxic-appearing. HENT: Mouth/Throat: Mouth: Mucous membranes are moist. Pharynx: Oropharynx is clear. Eyes: Conjunctiva/sclera: Conjunctivae normal. Cardiovascular: Rate and Rhythm: Normal rate. Pulses: Normal pulses. Heart sounds: Normal heart sounds. Pulmonary: Effort: Pulmonary effort is normal. Breath sounds: Normal breath sounds. Abdominal: General: Bowel sounds are normal. Palpations: Abdomen is soft. Skin: General: Skin is warm and dry. Capillary Refill: Capillary refill takes less than 2 seconds. Neurological: Mental Status: She is alert. Mental status is at baseline. Motor: Weakness present. Psychiatric: Mood and Affect: Mood normal. Behavior: Behavior normal. Some elements from the note on 12/13/23 have not changed and have been copied from that note. Any changes in condition have been addressed and charted accordingly. POC discussed with appropriate parties and nursing staff. Electronically signed by Dilcia Carl APRN.CNP documented in this encounterThe [facility]08-30-2024 Telephone encounter Note * Telephone Encounter - Dawyne Wray - 12/14/2023 7:[address] Mccarty, Please see the below Prescient message and contact patient to advise within 72 hours. Dwayne Bernstein This has been a crazy week Dr Mccarty. I will check with my nurse and see if I can have them add the appointment with you at 10:30am. I will let your office know [facility]08-29-2024 History of Present illness Narrative* Dilcia Carl APRN.CNP - 12/13/2023 1:49 PM EDT Images from the original note were not included. Connected Care Unit Progress Note Patient Name: Chikis Tobar Patient Facility: [facility] Admit Date 11/09/23 Level of Care: Skilled SNF Attending: Amelia Parisi D.O. Service Date: 12/13/2023 Code Status: Chief Complaint: Evaluation regarding hydrocephalus, meningitis ASSESSMENT AND PLAN ASSESSMENT/PLAN: 1. 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 denies SHANNON, dizziness or double/blurred vision at this time 11/15: No change in condition. Pt. participating in PT/OT, eating and drinking appropriately. No bowel or bladder issues. afebrile, non-toxic appearing. Pt.c/o BLE muscle cramps, Mag 1.9, muscle relaxer changed to methocarbamol 750mg po QID. Pt. has f/u with MD today to possibly hold anti-fungal due to muscle spasms that may be 2/2 anti-fungal. hemodynamically stable. No acute issues at this time. 11/19: No change in condition. Pt. participating in PT/OT as tolerated with BLE muscle spasms. Pt. states there is slight improvement with change in muscle relaxer and the muscle spasms. will attempt medrol dose pack therapy at this time and monitor blood glucose closely. eating and drinking appropriately. No bowel or bladder issues. Labs reviewed, hemodynamically stable. No acute issues at this time. 11/21: Hemodynamically stable, eating and drinking appropriately. Labs reviewed. participating in pt/ot, afebrile, non-toxic appearing. pt. refusing medrol dose pack at this time, pt. wants to wait onemore week of cessation of anti-fungal. no bowel or bladder issues at this time. No acute issues. 11/28: No change in condition. Pt. participating in PT/OT, eating and drinking appropriately. No bowel or bladder issues. afebrile, non-toxic appearing. pt. c/o continued BLE muscle spasms with pain, current regimen non-effective. will start medrol dose pack at this time, hemodynamically stable. No acute issues at this time. 12/05: Hemodynamically stable, eating and drinking appropriately. participating in pt/ot, denies pain at this time, afebrile, non-toxic appearing. pt. had f/u with neurosurgery with recommendations tochange muscle relaxer and f/u with neuro in [address] scan brain. no bowel or bladder issues at this time. No acute issues. 12/10: No change in condition. Pt. participating in PT/OT, eating and drinking appropriately. No bowel or bladder issues. afebrile, non-toxic appearing, Denies Cp, SOB, heart palpitations or dizziness. hemodynamically stable. No acute issues at this time. 12/12: Hemodynamically stable, eating and drinking appropriately. participating in pt/ot, denies pain at this time, afebrile, non-toxic appearing. pt. c/o continues BLE muscle spasms with pain, will start a prednisone taper at this time. no bowel or bladder issues at this time. No acute issues. - prednisone taper, 60, 40, 20, 10 - continue ASA 81mg po BID for DVT prophylaxis - continue pain control and muscle relaxer - continue posaconazole - continue to monitor CBC/CMP - continue to monitor Dilcia Carl Appointments for Next 60 Days Date Time Provider Location Dept Phone 12/13/2023 12:30 PM SHARAN DOMINGUEZ [facility] [phone] 12/21/2023 9:00 AM REGGIE BUTLER [facility] S [facility] [phone] 01/09/2024 10:00 AM JAMIE MCCARTY [facility] [phone] 01/10/2024 10:20 AM XR [facility] 01/10/2024 11:00 AM AASHISH MON[facility] [phone] 01/10/2024 2:[address] 2 MAIN QB (I-STAT) Mn Q dg [phone] 01/10/2024 3:00 PM MARLENE CORDERO [facility] S [facility] [phone] 01/11/2024 2:30 PM NOEL DANIELS [facility] [phone] 01/11/2024 3:15 PM NOEL DANIELS [facility] [phone] 02/06/2024 11:00 AM RUDDY GUPTA [facility] [phone] HPI: (Per discharge summary) 58-year-old female with PMHx signficant for T1DM cb/ DKA, urothelial carcinoma of the bladder s/p radical cystectomy and ileal conduit c/b SBO (Dec 2021), HTN, chronic sinusitis, asthma, persistent encephalopathy and hydrocephalus. 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 She was followed by ID at [facility] and was on posaconazole. She is s/p shunt externalization at [facility] (06/27/23) during abdominal surgery for SBO and eventual VPS explantation (07/10/23). She was o riginally scheduled for shunt reinternalization with Dr. Oconnor on 11/20/23. She fell due to leg spasms and presented to OSH ED and admitted on 10/07/23. Found to have L tibial fx s/p intramedullary nailDr. Darleen at [facility] (10/08/23). She was then [place] [facility] [place]. She is s/p VPS reimplantation by Dr. Oconnor and Dr. Evans on 10/14. Intraoperative CSF cultures without growth. Plan to continue posaconazole at least through end of this year. She isto start asa bid on 10/24 for dvt ppx. Seen by WOCN for wounds as below - Coccyx : healed. -Left posterior heel: POA -Left anterior foot : Deep Tissue Pressure Injury, acquired While in the ARU, pt received physical therapy for range of motion, transfer training, endurance/ balance, fall prevention, and gait training with appropriate assistive devices, occupational therapy for activity of daily living/equipment/ functional transfer evaluation and training, and speech thera py for language evaluation and speech re-education. Team conferences were held to monitor progress and tailor program to patients needs. Patient had appropriate pain management, bowel management, sleep management, GI and DVT prophylaxis. Pt was stable throughout ARU course without major medical comp lication. Pt participated in all therapies and although with significant gradual improvement, would benefit from continuing skilled therapies and nursing at SNF prior to returning home. 10/23 stop robaxin, add zanaflex 4mg at bedtime and 2mg tid prn 10/27 zanaflex scheduled qid 10/28 d/w IM get f/u head CT d/t unresolved spasticity with pain 10/30 Shunt adjusted by Neurosurg from to 7 11/04 add gabapentin 300mg at bedtime Interval HPI: Pt. is alert, calm and cooperative during ROS and physical exam. There are no concerns for bowel issues. ileal conduit without complications, appropriate output without sediment or hematuria. Pt. is eating and drinking fluids appropriately. walker boot in place, denies pain at this time. pt. denies SHANNON, dizziness or double/blurred vision at this time. All labs and vital signs were reviewed. Pt. is participating in PT/OT without complications. Per nursing staff there are no acute changes to be addressed at this time. 11/15: No change in condition. Pt. participating in PT/OT, eating and drinking appropriately. No bowel or bladder issues. afebrile, non-toxic appearing. Pt.c/o BLE muscle cramps, Mag 1.9, muscle relaxer changed to methocarbamol 750mg po QID. Pt. has f/u with MD today to possibly hold anti-fungal due to muscle spasms that may be 2/2 anti-fungal. hemodynamically stable. No acute issues at this time. 11/19: No change in condition. Pt. participating in PT/OT as tolerated with BLE muscle spasms. Pt. states there is slight improvement with change in muscle relaxer and the muscle spasms. will attempt medrol dose pack therapy at this time and monitor blood glucose closely. eating and drinking appropriately. No bowel or bladder issues. Labs reviewed, hemodynamically stable. No acute issues at this time. 11/21: Hemodynamically stable, eating and drinking appropriately. Labs reviewed. participating in pt/ot, afebrile, non-toxic appearing. pt. refusing medrol dose pack at this time, pt. wants to wait onemore week of cessation of anti-fungal. no bowel or bladder issues at this time. No acute issues. 11/28: No change in condition. Pt. participating in PT/OT, eating and drinking appropriately. No bowel or bladder issues. afebrile, non-toxic appearing. pt. c/o continued BLE muscle spasms with pain, current regimen non-effective. will start medrol dose pack at this time, hemodynamically stable. No acute issues at this time. 12/05: Hemodynamically stable, eating and drinking appropriately. participating in pt/ot, denies pain at this time, afebrile, non-toxic appearing. pt. had f/u with neurosurgery with recommendations tochange muscle relaxer and f/u with neuro in [address] scan brain. no bowel or bladder issues at this time. No acute issues. 12/10: No change in condition. Pt. participating in PT/OT, eating and drinking appropriately. No bowel or bladder issues. afebrile, non-toxic appearing, Denies Cp, SOB, heart palpitations or dizziness. hemodynamically stable. No acute issues at this time. 12/12: Hemodynamically stable, eating and drinking appropriately. participating in pt/ot, denies pain at this time, afebrile, non-toxic appearing. pt. c/o continues BLE muscle spasms with pain, will start a prednisone taper at this time. no bowel or bladder issues at this time. No acute issues. PAST MEDICAL HISTORY 02/16/2021: Asthma 02/2021: Bladder cancer (HCC) Comment: urothelial carcinoma 04/13/2021: Diabetes mellitus type 1 (HCC) Comment: diagnosed at age 6 02/16/2021: HTN (hypertension) 02/16/2021: Neoplasm of bladder 02/16/2021: Obesity 02/16/2021: Palpitations SUBJECTIVE: Review of Systems Constitutional: Positive for activity change and fatigue. Negative for fever. Respiratory: Negative. Cardiovascular: Negative. Gastrointestinal: Negative. Musculoskeletal: Positive for arthralgias. Neurological: Positive for weakness. Psychiatric/Behavioral: Negative. No reports of falls/injuries, changes in cognition/behaviors, or any uncontrolled pain exacerbations. Medications: Medications listed in Epic during SNF admission may not be current. Refer to facility record. Patient records, current medications, most recent labs, family/social history (unchanged) Reviewed.Refer to facility records. OBJECTIVE: Labs/diagnostics: reviewed Physical Exam: Physical Exam Constitutional: General: She is not in acute distress. Appearance: She is not toxic-appearing. HENT: Mouth/Throat: Mouth: Mucous membranes are moist. Pharynx: Oropharynx is clear. Eyes: Conjunctiva/sclera: Conjunctivae normal. Cardiovascular: Rate and Rhythm: Normal rate. Pulses: Normal pulses. Heart sounds: Normal heart sounds. Pulmonary: Effort: Pulmonary effort is normal. Breath sounds: Normal breath sounds. Abdominal: General: Bowel sounds are normal. Palpations: Abdomen is soft. Skin: General: Skin is warm and dry. Capillary Refill: Capillary refill takes less than 2 seconds. Neurological: Mental Status: She is alert. Mental status is at baseline. Motor: Weakness present. Psychiatric: Mood and Affect: Mood normal. Behavior: Behavior normal. Some elements from the note on 12/11/23 have not changed and have been copied from that note. Any changes in condition have been addressed and charted accordingly. POC discussed with appropriate parties and nursing staff. Electronically signed by Dilcia Carl APRN.STABLE HELPER documented in this encounterThe [facility]08-29-2024 History of Present illness Narrative* Sharan Dominguez APRN.MAR[facility] - 12/13/2023 8:44 AM EDT Images from the original note were not included. [facility] PROVIDER PROGRAM - FOLLOW UP VISIT PATIENT NAME: Chikis Tobar SERVICE DATE: 12/13/[address] PL[address] OF SERVICE FOR THIS VISIT[facility] (POS [facility] Facility Name: [facility] Level of Care: Skilled Asked to see patient at the request of and in collaboration with Dr. Parisi for my opinion regardingpressure injury of the left heel. Requested to see patient today for wound assessment and treatment evaluation CHIEF COMPLAINT: Follow up wound care evaluation of pressure injury of the left heel. INTERVAL HISTORY Information provided by: Chart review and Patient 58 year old y/o female who presents with a wound Location: Left posterior heel Onset: POA Aggravating factors: Diabetes mellitus, Mechanical devices related, Positioning, and Pressure Wound etiology: Pressure Associated pain with wound: Yes Relieving factors for wound pain: Positioning Treatments: Current: Betadine, ABD, kerlix Remainder unchanged Future Appointments Date Time Provider Department Center 12/13/2023 12:30 PM Sharan Dominguez APRN.[facility] 12/21/2023 9:00 AM Reggie Butler MD NREUS2 [facility] 01/09/2024 10:00 AM Jamie Mccarty MD INFDMN [facility] 01/10/2024 10:20 AM XR [facility] 01/10/2024 11:00 AM Aashish Monge PA-C [facility] 01/10/2024 2:[address] 2 MAIN QB (I-STAT) RCTMN [facility]ld[facility] 01/10/2024 3:00 PM Marlene Cordero PA-C NREUS2 [facility] 01/11/2024 2:30 PM Noel Daniels MD Counts include 234 beds at the [facility] F 01/11/2024 3:15 PM Noel Daniels MD Counts include 234 beds at the [facility] F 02/06/2024 11:00 AM Ruddy Gupta MD ENDOAV Rej 09/16/2024 10:45 AM LAB MAIN Q2-1 LBQ2-1 Mn Q Bldg 09/16/2024 11:[address] 2 MAIN QB (I-STAT) [facility] IMPRESSION/RECOMMENDATIONS The patient's age, altered mobility and other co morbidities are likely to impact wound and skin integrity Additional impediments to healing Diabetic: Yes Anticoagulation: Aspirin Antibiotics: No Steroids: Prednisone (L89.620) Pressure injury of left heel, unstageable ([facility]) (primary encounter diagnosis) Comment: Unstageable pressure injury of the posterior aspect of the left heel with decreased measurements at today's visit. Wound remains comprised of dry, firm eschar without lifting or drainage noted. Periwound remains dry and intact with some blanchable erythema. Will plan to continue betadine to the area. DP and PT pulses +2. Less tender on exam as compared to previous visits. HPI: Patient s/p left tibia fracture with use of walking boot post-operatively, subsequent pressureinjury d/t mechanical device. Patient given OK per orthopedics to leave boot off to aide in wound healing and pressure reduction. Plan: -Monitor for any s/s of infection- notify STABLE HELPER/MD of any pertinent findings -Wound care orders as follows for bacteriostatic properties: Wound Care Order: - Cleanse wound and periwound skin with normal saline and gauze, gently pat dry. - Apply betadine liberally to wound and periwound - Cover with ABD and kerlix - Change dressing daily and PRN. (R53.81) Physical deconditioning Comment: Patient requires assistance with ADL's and mobility d/t recent left tibia fracture, hydrocephalus. Working with PT and OT. Plan: - Turn and reposition frequently - Frequent weight shifts when seated - Nutritional support as appropriate FOLLOW UP PLAN Weekly as needed SUBJECTIVE REVIEW: Information provided by: Patient and Facility nurse Review of Systems Constitutional: Negative for chills, diaphoresis and fever. HENT: Negative. Respiratory: Negative. Cardiovascular: Negative. Gastrointestinal: Negative. Genitourinary: + urostomy Musculoskeletal: Positive for arthralgias and gait problem. Skin: Positive for wound. Neurological: Positive for weakness (Generalized). Psychiatric/Behavioral: Negative Nutrition DIET: NCS (No Concentrated Sweets) diet, Regular texture, Regular/Thin consistency SUPPLEMENTS: Anuel APPETITE: fair MEDICATION REVIEW Medications listed in Epic during SNF admission may not be current. Refer to facility record Medications Reviewed per facility list done: Yes Allergies reviewed per facility list Prior chart notes reviewed SOCIAL HISTORY Tobacco Use Past: No Current: No OBJECTIVE Physical Exam Vitals and nursing note reviewed. Constitutional: General: She is not in acute distress. Appearance: She is well-groomed and normal weight. She is not ill-appearing or toxic-appearing. Comments: Pleasant middle aged female sitting upright in wheelchair, calm and cooperative. HENT: Head: Normocephalic and atraumatic. Nose: No congestion. Mouth/Throat: Mouth: Mucous membranes are moist. Pharynx: Oropharynx is clear. Cardiovascular: Rate and Rhythm: Normal rate. Pulses: Normal pulses. Pulmonary: Effort: Pulmonary effort is normal. No respiratory distress. Abdominal: General: Abdomen is flat. There is no distension. Palpations: Abdomen is soft. Musculoskeletal: General: Tenderness (LLE). Right lower leg: +1 edema. Left lower leg: +1 edema. Skin: General: Skin is warm and dry. Findings: Wound (See HPI) present. Neurological: Mental Status: She is alert and oriented to person, place, and time. Motor: Weakness present. Gait: Gait abnormal. Psychiatric: Attention and Perception: Attention normal. Mood and Affect: Mood and affect normal. Speech: Speech normal. Behavior: Behavior normal. Behavior is cooperative. WOUND ASSESSMENT Location: Left Posterior Heel Type: pressure injury Stage: Unstageable Exposed structure:None Progress: Improved- decreased measurements Wound measurements (cm): 2.7 x 2.1 x UTD Full thickness: N/A Tunneling/undermining: none Wound tissue color: 100% firm, dry eschar Periwound tissue: dry, intact, blanchable erythema Drainage: none Drainage odor: None ANCILLARY DATA REVIEWED Managed by facility. Counseled on wound prognosis and plan of care, Counseled patient, family or facility staff on woundhealing process. Counseled on treatment options, and Written wound care instructions left in facility. Visit billing based on time: No, visit will not be billed on time? I spent a total of 20 minutes on the date of the service which included preparing to see the patient, [id number] patient care, completing clinical documentation, reviewing separately obtained history, performing a medically appropriate examination, counseling and educating the patient/family/caregiver, and communicating with other HCPs (not separately reported). Joint visit made with Daniel Sandoval LPN. Plan of Care discussed with facility nursing staff, patient, and referring provider. Wound care was performed during visit. All documentation from previous visit of 12/05/2023 was copied and pasted, documentation has been reviewed and edited as necessary for today's visit on 12/13/2023. SIGNATURE: Sharan Dominguez APRN.GONZALEZ POLLOCK PATIENT NAME: Chikis Tobar DATE: December 13, 2023 OFFICE #: [id number] PAGER/CELL: [phone] documented in this encounterThe [facility]08-27-2024 History of Present illness Narrative* Dilcia Carl APRN.MARIS - 12/11/2023 2:08 PM EDT Images from the original note were not included. Connected Care Unit Progress Note Patient Name: Chikis Tobar Patient Facility: [facility] Admit Date 11/09/23 Level of Care: Skilled SNF Attending: Amelia Parisi D.O. Service Date: 12/11/2023 Code Status: Chief Complaint: Evaluation regarding hydrocephalus, meningitis ASSESSMENT AND PLAN ASSESSMENT/PLAN: 1. 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 denies SHANNON, dizziness or double/blurred vision at this time 11/15: No change in condition. Pt. participating in PT/OT, eating and drinking appropriately. No bowel or bladder issues. afebrile, non-toxic appearing. Pt.c/o BLE muscle cramps, Mag 1.9, muscle relaxer changed to methocarbamol 750mg po QID. Pt. has f/u with MD today to possibly hold anti-fungal due to muscle spasms that may be 2/2 anti-fungal. hemodynamically stable. No acute issues at this time. 11/19: No change in condition. Pt. participating in PT/OT as tolerated with BLE muscle spasms. Pt. states there is slight improvement with change in muscle relaxer and the muscle spasms. will attempt medrol dose pack therapy at this time and monitor blood glucose closely. eating and drinking appropriately. No bowel or bladder issues. Labs reviewed, hemodynamically stable. No acute issues at this time. 11/21: Hemodynamically stable, eating and drinking appropriately. Labs reviewed. participating in pt/ot, afebrile, non-toxic appearing. pt. refusing medrol dose pack at this time, pt. wants to wait onemore week of cessation of anti-fungal. no bowel or bladder issues at this time. No acute issues. 11/28: No change in condition. Pt. participating in PT/OT, eating and drinking appropriately. No bowel or bladder issues. afebrile, non-toxic appearing. pt. c/o continued BLE muscle spasms with pain, current regimen non-effective. will start medrol dose pack at this time, hemodynamically stable. No acute issues at this time. 12/05: Hemodynamically stable, eating and drinking appropriately. participating in pt/ot, denies pain at this time, afebrile, non-toxic appearing. pt. had f/u with neurosurgery with recommendations tochange muscle relaxer and f/u with neuro in [address] scan brain. no bowel or bladder issues at this time. No acute issues. 12/10: No change in condition. Pt. participating in PT/OT, eating and drinking appropriately. No bowel or bladder issues. afebrile, non-toxic appearing, Denies Cp, SOB, heart palpitations or dizziness. hemodynamically stable. No acute issues at this time. - continue ASA 81mg po BID for DVT prophylaxis - continue pain control and muscle relaxer - continue posaconazole - continue to monitor CBC/CMP - continue to monitor Dilcia Carl Appointments for Next 60 Days Date Time Provider Location Dept Phone 12/13/2023 12:30 PM SHARAN DOMINGUEZ [facility] [phone] 12/21/2023 9:00 AM REGGIE BUTLER [facility] [phone] 01/09/2024 10:00 AM JAMIE MCCARTY [facility] [phone] 01/10/2024 10:20 AM XR [facility] 01/10/2024 11:00 AM AASHISH MONGE [facility] [phone] 01/10/2024 2:[address] 2 MAIN QB (I-STAT) [facility] [phone] 01/10/2024 3:00 PM MARLENE CORDREO [facility] [phone] 01/11/2024 2:30 [place] [phone] 01/11/2024 3:15 PM NOEL DANIELS [facility] [phone] 02/06/2024 11:00 AM RUDDY GUPTA [phone] HPI: (Per discharge summary) 58-year-old female with PMHx signficant for T1DM cb/ DKA, urothelial carcinoma of the bladder s/p radical cystectomy and ileal conduit c/b SBO (Dec 2021), HTN, chronic sinusitis, asthma, persistent encephalopathy and hydrocephalus. 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 She was followed by ID at [facility] and was on posaconazole. She is s/p shunt externalization at [facility] (06/27/23) during abdominal surgery for SBO and eventual VPS explantation (07/10/23). She was o riginally scheduled for shunt reinternalization with Dr. Oconnor on 11/20/23. She fell due to leg spasms and presented to OSH ED and admitted on 10/07/23. Found to have L tibial fx s/[facility]amed[facility] (10[facility] She was then [place] [facility] [place]. She is s/p VPS reimplantation by Dr. Oconnor and Dr. Evans on 10/14. Intraoperative CSF cultures without growth. Plan to continue posaconazole at least through end of this year. She isto start asa bid on 10/24 for dvt ppx. Seen by [facility] for wounds as below - Coccyx : healed. -Left posterior heel: POA -Left anterior foot : Deep Tissue Pressure Injury, acquired While in the ARU, pt received physical therapy for range of motion, transfer training, endurance/ balance, fall prevention, and gait training with appropriate assistive devices, occupational therapy for activity of daily living/equipment/ functional transfer evaluation and training, and speech thera py for language evaluation and speech re-education. Team conferences were held to monitor progress and tailor program to patients needs. Patient had appropriate pain management, bowel management, sleep management, GI and DVT prophylaxis. Pt was stable throughout ARU course without major medical comp lication. Pt participated in all therapies and although with significant gradual improvement, would benefit from continuing skilled therapies and nursing at SNF prior to returning home. 10/23 stop robaxin, add zanaflex 4mg at bedtime and 2mg tid prn 10/27 zanaflex scheduled qid 10/28 d/w IM get f/u head CT d/t unresolved spasticity with pain 10/30 Shunt adjusted by Neurosurg from to 7 11/04 add gabapentin 300mg at bedtime Interval HPI: Pt. is alert, calm and cooperative during ROS and physical exam. There are no concerns for bowel issues. ileal conduit without complications, appropriate output without sediment or hematuria. Pt. is eating and drinking fluids appropriately. walker boot in place, denies pain at this time. pt. denies SHANNON, dizziness or double/blurred vision at this time. All labs and vital signs were reviewed. Pt. is participating in PT/OT without complications. Per nursing staff there are no acute changes to be addressed at this time. 11/15: No change in condition. Pt. participating in PT/OT, eating and drinking appropriately. No bowel or bladder issues. afebrile, non-toxic appearing. Pt.c/o BLE muscle cramps, Mag 1.9, muscle relaxer changed to methocarbamol 750mg po QID. Pt. has f/u with MD today to possibly hold anti-fungal due to muscle spasms that may be 2/2 anti-fungal. hemodynamically stable. No acute issues at this time. 11/19: No change in condition. Pt. participating in PT/OT as tolerated with BLE muscle spasms. Pt. states there is slight improvement with change in muscle relaxer and the muscle spasms. will attempt medrol dose pack therapy at this time and monitor blood glucose closely. eating and drinking appropriately. No bowel or bladder issues. Labs reviewed, hemodynamically stable. No acute issues at this time. 11/21: Hemodynamically stable, eating and drinking appropriately. Labs reviewed. participating in pt/ot, afebrile, non-toxic appearing. pt. refusing medrol dose pack at this time, pt. wants to wait onemore week of cessation of anti-fungal. no bowel or bladder issues at this time. No acute issues. 11/28: No change in condition. Pt. participating in PT/OT, eating and drinking appropriately. No bowel or bladder issues. afebrile, non-toxic appearing. pt. c/o continued BLE muscle spasms with pain, current regimen non-effective. will start medrol dose pack at this time, hemodynamically stable. No acute issues at this time. 12/05: Hemodynamically stable, eating and drinking appropriately. participating in pt/ot, denies pain at this time, afebrile, non-toxic appearing. pt. had f/u with neurosurgery with recommendations tochange muscle relaxer and f/u with neuro in [address] scan brain. no bowel or bladder issues at this time. No acute issues. 12/10: No change in condition. Pt. participating in PT/OT, eating and drinking appropriately. No bowel or bladder issues. afebrile, non-toxic appearing, Denies Cp, SOB, heart palpitations or dizziness. hemodynamically stable. No acute issues at this time. PAST MEDICAL HISTORY 02/16/2021: Asthma 02/2021: Bladder cancer (HCC) Comment: urothelial carcinoma 04/13/2021: Diabetes mellitus type 1 (HCC) Comment: diagnosed at age 6 02/16/2021: HTN (hypertension) 02/16/2021: Neoplasm of bladder 02/16/2021: Obesity 02/16/2021: Palpitations SUBJECTIVE: Review of Systems Constitutional: Positive for activity change and fatigue. Negative for fever. Respiratory: Negative. Cardiovascular: Negative. Gastrointestinal: Negative. Musculoskeletal: Positive for arthralgias. Neurological: Positive for weakness. Psychiatric/Behavioral: Negative. No reports of falls/injuries, changes in cognition/behaviors, or any uncontrolled pain exacerbations. Medications: Medications listed in Epic during SNF admission may not be current. Refer to facility record. Patient records, current medications, most recent labs, family/social history (unchanged) Reviewed.Refer to facility records. OBJECTIVE: Labs/diagnostics: reviewed Physical Exam: Physical Exam Constitutional: General: She is not in acute distress. Appearance: She is not toxic-appearing. HENT: Mouth/Throat: Mouth: Mucous membranes are moist. Pharynx: Oropharynx is clear. Eyes: Conjunctiva/sclera: Conjunctivae normal. Cardiovascular: Rate and Rhythm: Normal rate. Pulses: Normal pulses. Heart sounds: Normal heart sounds. Pulmonary: Effort: Pulmonary effort is normal. Breath sounds: Normal breath sounds. Abdominal: General: Bowel sounds are normal. Palpations: Abdomen is soft. Skin: General: Skin is warm and dry. Capillary Refill: Capillary refill takes less than 2 seconds. Neurological: Mental Status: She is alert. Mental status is at baseline. Motor: Weakness present. Psychiatric: Mood and Affect: Mood normal. Behavior: Behavior normal. Some elements from the note on 12/06/23 have not changed and have been copied from that note. Any changes in condition have been addressed and charted accordingly. POC discussed with appropriate parties and nursing staff. Electronically signed by Dilcia Carl APRN.CNP documented in this encounterThe [facility]08-26-2024 History of Present illness Narrative* Dilcia Carl APRN.CNP - 12/10/2023 12:26 PM EDT med refilled documented in this encounterThe [facility]08-22-2024 History of Present illness Narrative* Dilcia Carl APRN.STABLE HELPER - 12/06/2023 5:32 PM EDT Images from the original note were not included. Connected Care Unit Progress Note Patient Name: Chikis Tobar Patient Facility: [facility] Admit Date 11/09/23 Level of Care: Skilled SNF Attending: Amelia Parisi D.O. Service Date: 12/06/2023 Code Status: Chief Complaint: Evaluation regarding hydrocephalus, meningitis ASSESSMENT AND PLAN ASSESSMENT/PLAN: 1. 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 denies SHANNON, dizziness or double/blurred vision at this time 11/15: No change in condition. Pt. participating in PT/OT, eating and drinking appropriately. No bowel or bladder issues. afebrile, non-toxic appearing. Pt.c/o BLE muscle cramps, Mag 1.9, muscle relaxer changed to methocarbamol 750mg po QID. Pt. has f/u with MD today to possibly hold anti-fungal due to muscle spasms that may be 2/2 anti-fungal. hemodynamically stable. No acute issues at this time. 11/19: No change in condition. Pt. participating in PT/OT as tolerated with BLE muscle spasms. Pt. states there is slight improvement with change in muscle relaxer and the muscle spasms. will attempt medrol dose pack therapy at this time and monitor blood glucose closely. eating and drinking appropriately. No bowel or bladder issues. Labs reviewed, hemodynamically stable. No acute issues at this time. 11/21: Hemodynamically stable, eating and drinking appropriately. Labs reviewed. participating in pt/ot, afebrile, non-toxic appearing. pt. refusing medrol dose pack at this time, pt. wants to wait onemore week of cessation of anti-fungal. no bowel or bladder issues at this time. No acute issues. 11/28: No change in condition. Pt. participating in PT/OT, eating and drinking appropriately. No bowel or bladder issues. afebrile, non-toxic appearing. pt. c/o continued BLE muscle spasms with pain, current regimen non-effective. will start medrol dose pack at this time, hemodynamically stable. No acute issues at this time. 12/05: Hemodynamically stable, eating and drinking appropriately. participating in pt/ot, denies pain at this time, afebrile, non-toxic appearing. pt. had f/u with neurosurgery with recommendations tochange muscle relaxer and f/u with neuro in [address] scan brain. no bowel or bladder issues at this time. No acute issues. - continue ASA 81mg po BID for DVT prophylaxis - continue methocarbamol 750mg po QID - medrol dose pack - continue posaconazole - continue to monitor CBC/CMP - continue to monitor Dilcia Carl Appointments for Next 60 Days Date Time Provider Location Dept Phone 12/21/2023 9:00 AM REGGIE BUTLER Mn S [facility] [phone] 01/09/2024 10:00 AM JAMIE MCCARTY G Bldg [phone] 01/10/2024 10:20 AM [facility] 01/10/2024 11:00 AM AASHISH MONGE [facility] [phone] 01/10/2024 2:[address] 2 MAIN QB (I-STAT) Mn Q [facility] [phone] 01/10/2024 3:00 PM MARLENE CORDERO Mn S [facility] [phone] 01/11/2024 2:30 PM NOEL DANIELS F [phone] 01/11/2024 3:15 PM NOEL DANIELS F [phone] HPI: (Per discharge summary) 58-year-old female with PMHx signficant for T1DM cb/ DKA, urothelial carcinoma of the bladder s/p radical cystectomy and ileal conduit c/b SBO (Dec 2021), HTN, chronic sinusitis, asthma, persistent encephalopathy and hydrocephalus. 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 She was followed by ID at [facility] and was on posaconazole. She is s/p shunt externalization at [facility] (06/27/23) during abdominal surgery for SBO and eventual VPS explantation (07/10/23). She was o riginally scheduled for shunt reinternalization with Dr. Oconnor on 11/20/23. She fell due to leg spasms and presented to OSH ED and admitted on 10/07/23. Found to have L tibial fx s/p intramedullary nailDrGiancarlo Morejon at [facility] (10/08/23). She was then [place] [facility] [place]. She is s/p VPS reimplantation by Dr. Oconnor and Dr. Evans on 10/14. Intraoperative CSF cultures without growth. Plan to continue posaconazole at least through end of this year. She isto start asa bid on 10/24 for dvt ppx. Seen by WOCN for wounds as below - Coccyx : healed. -Left posterior heel: POA -Left anterior foot : Deep Tissue Pressure Injury, acquired While in the ARU, pt received physical therapy for range of motion, transfer training, endurance/ balance, fall prevention, and gait training with appropriate assistive devices, occupational therapy for activity of daily living/equipment/ functional transfer evaluation and training, and speech thera py for language evaluation and speech re-education. Team conferences were held to monitor progress and tailor program to patients needs. Patient had appropriate pain management, bowel management, sleep management, GI and DVT prophylaxis. Pt was stable throughout ARU course without major medical comp lication. Pt participated in all therapies and although with significant gradual improvement, would benefit from continuing skilled therapies and nursing at SNF prior to returning home. 10/23 stop robaxin, add zanaflex 4mg at bedtime and 2mg tid prn 10/27 zanaflex scheduled qid 10/28 d/w IM get f/u head CT d/t unresolved spasticity with pain 10/30 Shunt adjusted by Neurosurg from to 7 11/04 add gabapentin 300mg at bedtime Interval HPI: Pt. is alert, calm and cooperative during ROS and physical exam. There are no concerns for bowel issues. ileal conduit without complications, appropriate output without sediment or hematuria. Pt. is eating and drinking fluids appropriately. walker boot in place, denies pain at this time. pt. denies SHANNON, dizziness or double/blurred vision at this time. All labs and vital signs were reviewed. Pt. is participating in PT/OT without complications. Per nursing staff there are no acute changes to be addressed at this time. 11/15: No change in condition. Pt. participating in PT/OT, eating and drinking appropriately. No bowel or bladder issues. afebrile, non-toxic appearing. Pt.c/o BLE muscle cramps, Mag 1.9, muscle relaxer changed to methocarbamol 750mg po QID. Pt. has f/u with MD today to possibly hold anti-fungal due to muscle spasms that may be 2/2 anti-fungal. hemodynamically stable. No acute issues at this time. 11/19: No change in condition. Pt. participating in PT/OT as tolerated with BLE muscle spasms. Pt. states there is slight improvement with change in muscle relaxer and the muscle spasms. will attempt medrol dose pack therapy at this time and monitor blood glucose closely. eating and drinking appropriately. No bowel or bladder issues. Labs reviewed, hemodynamically stable. No acute issues at this time. 11/21: Hemodynamically stable, eating and drinking appropriately. Labs reviewed. participating in pt/ot, afebrile, non-toxic appearing. pt. refusing medrol dose pack at this time, pt. wants to wait onemore week of cessation of anti-fungal. no bowel or bladder issues at this time. No acute issues. 11/28: No change in condition. Pt. participating in PT/OT, eating and drinking appropriately. No bowel or bladder issues. afebrile, non-toxic appearing. pt. c/o continued BLE muscle spasms with pain, current regimen non-effective. will start medrol dose pack at this time, hemodynamically stable. No acute issues at this time. 12/05: Hemodynamically stable, eating and drinking appropriately. participating in pt/ot, denies pain at this time, afebrile, non-toxic appearing. pt. had f/u with neurosurgery with recommendations tochange muscle relaxer and f/u with neuro in [address] scan brain. no bowel or bladder issues at this time. No acute issues. PAST MEDICAL HISTORY 02/16/2021: Asthma 02/2021: Bladder cancer (HCC) Comment: urothelial carcinoma 04/13/2021: Diabetes mellitus type 1 (HCC) Comment: diagnosed at age 6 02/16/2021: HTN (hypertension) 02/16/2021: Neoplasm of bladder 02/16/2021: Obesity 02/16/2021: Palpitations SUBJECTIVE: Review of Systems Constitutional: Positive for activity change and fatigue. Negative for fever. Respiratory: Negative. Cardiovascular: Negative. Gastrointestinal: Negative. Musculoskeletal: Positive for arthralgias. Neurological: Positive for weakness. Psychiatric/Behavioral: Negative. No reports of falls/injuries, changes in cognition/behaviors, or any uncontrolled pain exacerbations. Medications: Medications listed in Epic during SNF admission may not be current. Refer to facility record. Patient records, current medications, most recent labs, family/social history (unchanged) Reviewed.Refer to facility records. OBJECTIVE: Labs/diagnostics: reviewed Physical Exam: Physical Exam Constitutional: General: She is not in acute distress. Appearance: She is not toxic-appearing. HENT: Mouth/Throat: Mouth: Mucous membranes are moist. Pharynx: Oropharynx is clear. Eyes: Conjunctiva/sclera: Conjunctivae normal. Cardiovascular: Rate and Rhythm: Normal rate. Pulses: Normal pulses. Heart sounds: Normal heart sounds. Pulmonary: Effort: Pulmonary effort is normal. Breath sounds: Normal breath sounds. Abdominal: General: Bowel sounds are normal. Palpations: Abdomen is soft. Skin: General: Skin is warm and dry. Capillary Refill: Capillary refill takes less than 2 seconds. Neurological: Mental Status: She is alert. Mental status is at baseline. Motor: Weakness present. Psychiatric: Mood and Affect: Mood normal. Behavior: Behavior normal. Some elements from the note on 11/29/23 have not changed and have been copied from that note. Any changes in condition have been addressed and charted accordingly. POC discussed with appropriate parties and nursing staff. Electronically signed by Dilcia Carl APRN.STABLE HELPER documented in this encounterThe [facility] System08-21-2024 History of Present illness Narrative* Sharan Dominguez APRN.MARIS - 12/05/2023 6:49 AM EDT Images from the original note were not included. [facility] PROVIDER PROGRAM - FOLLOW UP VISIT PATIENT NAME: Chikis Tobar SERVICE DATE: 12/05/[address] OF SERVICE FOR THIS VISIT: [facility] (POS [facility] Facility Name: [facility] Level of Care: Skilled Asked to see patient at the request of and in collaboration with Dr. Parisi for my opinion regardingpressure injury of the left heel. Requested to see patient today for wound assessment and treatment evaluation CHIEF COMPLAINT: Follow up wound care evaluation of deep tissue pressure injury of the left heel. INTERVAL HISTORY Information provided by: Chart review and Patient 58 year old y/o female who presents with a wound Location: Left posterior heel Onset: POA Aggravating factors: Diabetes mellitus, Mechanical devices related, Positioning, and Pressure Wound etiology: Pressure Associated pain with wound: Yes Relieving factors for wound pain: Positioning Treatments: Current: Betadine, ABD, kerlix Remainder unchanged Future Appointments Date Time Provider Department Center 12/05/2023 11:00 AM Sharan Dominguez APRN.STABLE HELPER [facility] 12/21/2023 9:00 AM Reggie Butler MD NREUS2 Mn S Bldg 01/09/2024 10:00 AM Jaime Mccarty MD INFDMN Mn G Bldg 01/10/2024 10:20 AM [facility]R [facility] 01/10/2024 11:00 AM Aashish Monge PA-C [facility] 01/10/2024 2:[address] 2 MAIN QB (I-STAT) RCTMN Mn Q Bldg 01/10/2024 3:00 PM Marlene Cordero PA-C NREUS2 Mn S Bldg 02/06/2024 11:00 AM Ruddy Gupta MD ENDOAV Rej 09/16/2024 10:45 AM LAB MAIN Q2-1 LBQ2-1 Mn Q Bldg 09/16/2024 11:[address] 2 MAIN QB (I-STAT) RCTMN Mn Q Bldg IMPRESSION/RECOMMENDATIONS The patient's age, altered mobility and other co morbidities are likely to impact wound and skin integrity Additional impediments to healing Diabetic: Yes Anticoagulation: Aspirin Antibiotics: No Steroids: Methylprednisolone (L89.620) Pressure injury of left heel, unstageable (HCC) (primary encounter diagnosis) Comment: Decreased measurements noted to unstageable pressure injury of the posterior aspect of theleft heel, POA to SNF. Wound less tender for patient today as compared to previous visit. Wound remains comprised of dry, firm eschar without lifting or drainage noted. Periwound remains dry and intact with some blanchable erythema. Will plan to continue betadine to the area. DP and PT pulses +2. Less tender on exam as compared to previous visits. HPI: Patient s/p left tibia fracture with use of walking boot post-operatively, subsequent pressureinjury d/t mechanical device. Patient given OK per orthopedics to leave boot off to aide in wound healing and pressure reduction. Plan: -Monitor for any s/s of infection- notify STABLE HELPER/MD of any pertinent findings -Wound care orders as follows for bacteriostatic properties: Wound Care Order: - Cleanse wound and periwound skin with normal saline and gauze, gently pat dry. - Apply betadine liberally to wound and periwound - Cover with ABD and kerlix - Change dressing daily and PRN. (R53.81) Physical deconditioning Comment: Patient requires assistance with ADL's and mobility d/t recent left tibia fracture, hydrocephalus. Working with PT and OT. Plan: - Turn and reposition frequently - Frequent weight shifts when seated - Nutritional support as appropriate FOLLOW UP PLAN Weekly as needed SUBJECTIVE REVIEW: Information provided by: Patient and Facility nurse Review of Systems Constitutional: Negative for chills, diaphoresis and fever. HENT: Negative. Respiratory: Negative. Cardiovascular: Negative. Gastrointestinal: Negative. Genitourinary: + urostomy Musculoskeletal: Positive for arthralgias and gait problem. Skin: Positive for wound. Neurological: Positive for weakness (Generalized). Psychiatric/Behavioral: Negative Nutrition DIET: NCS (No Concentrated Sweets) diet, Regular texture, Regular/Thin consistency SUPPLEMENTS: Anuel APPETITE: fair MEDICATION REVIEW Medications listed in Epic during SNF admission may not be current. Refer to facility record Medications Reviewed per facility list done: Yes Allergies reviewed per facility list Prior chart notes reviewed SOCIAL HISTORY Tobacco Use Past: No Current: No OBJECTIVE Physical Exam Vitals and nursing note reviewed. Constitutional: General: She is not in acute distress. Appearance: She is well-groomed and normal weight. She is not ill-appearing or toxic-appearing. Comments: Pleasant middle aged female sitting upright in wheelchair, calm and cooperative. HENT: Head: Normocephalic and atraumatic. Nose: No congestion. Mouth/Throat: Mouth: Mucous membranes are moist. Pharynx: Oropharynx is clear. Cardiovascular: Rate and Rhythm: Normal rate. Pulses: Normal pulses. Pulmonary: Effort: Pulmonary effort is normal. No respiratory distress. Abdominal: General: Abdomen is flat. There is no distension. Palpations: Abdomen is soft. Musculoskeletal: General: Tenderness (LLE). Right lower leg: No edema. Left lower leg: No edema. Skin: General: Skin is warm and dry. Findings: Wound (See HPI) present. Neurological: Mental Status: She is alert and oriented to person, place, and time. Motor: Weakness present. Gait: Gait abnormal. Psychiatric: Attention and Perception: Attention normal. Mood and Affect: Mood and affect normal. Speech: Speech normal. Behavior: Behavior normal. Behavior is cooperative. WOUND ASSESSMENT Location: Left Posterior Heel Type: pressure injury Stage: Unstageable Exposed structure:None Progress: Improved- decreased measurements Wound measurements (cm): 2.9 x 2.3 x UTD Full thickness: N/A Tunneling/undermining: none Wound tissue color: 100% firm, dry eschar Periwound tissue: dry, intact, blanchable erythema Drainage: none Drainage odor: None ANCILLARY DATA REVIEWED Managed by facility. Counseled on wound prognosis and plan of care, Counseled patient, family or facility staff on woundhealing process. Counseled on treatment options, and Written wound care instructions left in facility. Visit billing based on time: No, visit will not be billed on time? I spent a total of 20 minutes on the date of the service which included preparing to see the patient, [id number] patient care, completing clinical documentation, reviewing separately obtained history, performing a medically appropriate examination, counseling and educating the patient/family/caregiver, and communicating with other HCPs (not separately reported). Joint visit made with Ria Sandoval LPN. Plan of Care discussed with facility nursing staff, patient, and referring provider. Wound care was performed during visit. All documentation from previous visit of 11/29/2023 was copied and pasted, documentation has been reviewed and edited as necessary for today's visit on 12/05/2023. SIGNATURE: Sharan Dominguez APRN.GONZALEZ POLLOCK PATIENT NAME: Chikis Tobar DATE: December 05, 2023 OFFICE #: [phone] PAGER/CELL: [phone] documented in this encounterThe [facility]08-20-2024 History of Present illness Narrative* Dilcia Carl APRN.MARIS - 12/04/2023 2:47 PM EDT med refilled documented in this encounterThe [facility] System08-20-2024 Instructions* Patient Instructions* Noel Daniels MD - 12/04/2023 11:55 AM EDT Thank you very much for your visit! We will plan to see you in 4 weeks for initial injection visit. You were recommended to continue the following therapies today: - Occupational Therapy for right frozen shoulder - Physical Therapy for medical conditioning and mobility Medications: 1. Baclofen 10 mg tablets: increase the dose of baclofen as follows Morning Lunchtime Bedtime 5 mg 5 mg 5 mg for 3 days 5 mg 5 mg 10 mg for 3 days 5 mg 10 mg 10 mg for 3 days 10 mg 10 mg 10 mg for 3 days 10 mg 10 mg 20 mg maintenance dose Stop increasing if spasticity is controlled or if side effects occur. Do not stop baclofen abruptly, to avoid baclofen withdrawal. 2. Ok to stop Robaxin as it is not helpful. 3. Unclear role of steroids in spasticity management. Ok to d/c steroids unless started for different indication. 4. May increase bedtime dose of Gabapentin to 600 mg gradually after reaching maintenance dose of Baclofen. Other: - Continue regular turning in bed and timely pressure relief while sitting in/out of bed - Continue follow up with Wound care nurse - Continue daily range of motion and stretching exercises - Recommend consultation with rehab psychology - Please reach out to Infectious Disease provider to discuss resumption of anti- fungal medication Plan for spasticity management: You will be scheduled for injections of botulinum toxin A and phenol nerve block. Please read carefully the instructions below: BEFORE THE DAY OF THE INJECTIONS If you are on anticoagulant medication (blood thinner, such as warfarin or heparin), you will receive specific instructions before the injection visit. We may not be able to perform the procedure if these instructions have not been followed. If you are experiencing fever/flu like symptoms and/or receiving treatment with antibiotics, pleasecall and inform our office at [phone]. We may have to post-pone the injection in such situation. If required by your insurance provider, we will submit a pre-authorization request. If you receive a notification from of approval or denial from your insurance, please notify us as soon as possible.If your health insurance changes before the injection visit, please notify our office as soon as possible and provide the new information. ON THE DAY OF THE INJECTIONS Please make sure that you come with a caregiver if you need help with basic needs. There is no anesthesia or sedation given for the injections. The appointment usually lasts 45 minutes. AFTER THE INJECTIONS The skin around the site of injections should be monitored for a couple of days. If redness or swelling occur, the skin should be examined by a health wound care physician to rule out infection. If you experience pain in the muscles injected over the next few days, you can take Tylenol to control the pain (unless contra-indicated). PHENOL NERVE BLOCK INJECTIONS Spasticity in adults with conditions that affect the brain or spinal cord (such as stroke, traumatic brain injury, cerebral palsy, multiple sclerosis or spinal cord injuries) is very common. Rehabilitation doctors use phenol to relax tight (spastic or dystonic) muscles. Phenol blocks or reduces themessages sent from the brain and spinal cord to the muscles via nerves. Nerves have an insulation or coating to help them transmit messages quickly. Phenol is an injection that partially uncoats the nerves by protein denaturation (breaking down the protein structure in outer coating of the nerve). As result the messages travel more slowly and the involuntary muscle contractions that result from the nerve messages are not as strong, causing the muscles to relax. This is a temporary effect and the nerves recoat themselves, so the effect of the medicine wears off. Phenol is injected close to the nerve (perineural). A small stimulator and ultrasound are used to find the right place for the injection. Mild electrical impulses from a small battery-operated box stimulator is delivered to find the nerves. Most side effects are temporary. Phenol injections can cause pain, bruising, bleeding, soreness and swelling at the injection site. It can cause numbness in the area supplied by the particular injected nerve. Temporary nerve pain, which generally goes away in 2-3 weeks, can be treated with medications if needed. Use of unto-uto-opexiqn medication (such as Tylenol) and ice packs may be helpful after injections. Phenol injections work immediately, and caution should be taken with all regular activities until your body recognizes and adapts to the muscle relaxation. The area of the injections should be kept dry for 24 hours. After phenol injections, it is recommended to rest and gradually resume normal activity and stretching. Phenol typically takes effect immediately and usually lasts for 3-6 months but i t may last up to 10-12 months. Please call this clinic if you have any questions at [phone]. documented in this encounterThe [facility]08-20-2024 History of Present illness Narrative* Noel Daniels MD - 12/04/2023 11:00 AM EDT Images from the original note were not included. REFERRAL SOURCE: No referring provider defined for this encounter. FOLLOWED BY: Kalli Simons MD REASON FOR CONSULTATION: rehabilitation consult. 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 The patient was accompanied by self. Medical records [facility] were reviewed. Chikis Tobar is a 58 year old right-handed female with past medical history of T1DM cb/ DKA, urothelial carcinoma of the bladder s/p radical cystectomy and ileal conduit c/b SBO (Dec 2021), HTN, chronic sinusitis, asthma, fungal meningitis, myelitis and hydrocephalus status post GEOLOGICAL ENGINEERING TEACHER shunt plac ement June 2022, externalization on 06/25/2023, removal 07/10/2023 and reimplantation on 10/15/2023. Per chart review - patient was initially evaluated at [facility] in May 2021 after she was found unresponsive by her family. Initial workup showed DKA and hydrocephalus on head CT with concern of possible infectious process. MRI showed multiple enhancing areas in anterior sabra, medulla and spinal cord (C7-T3, L1-S2). She was transferred to [facility] on 06/15/2022 for further management. Intradural exploration biopsy with T5-T7 laminectomy and EVD placement performed on 06/26/2022 by neurosurgery. Biopsy was notable for fungal hyphae on GMS stain and she was started on posaconazole per infectious disease. GEOLOGICAL ENGINEERING TEACHER shunt placement performed on 07/10/[address] showing interval decrease. She was discharged to acute inpatient rehabilitation at [facility] on 07/21/22. She was discharged home with family on 08/01/2022. She presented to [facility] ER on 06/25/2023 and was diagnosed with bowel obstruction for which she was taken emergently to the OR for exploratory laparotomy. She had bilateral ureteral reimplantation and GEOLOGICAL ENGINEERING TE[employer]ER shunt externalization. GEOLOGICAL ENGINEERING TEACHER shunt was removed on 07/09. She was discharged home on p.o. diet on 07/14/2023. She was admitted at [facility] on 10/07/2023 for left distal tibial fracture after fall status post intramedullary nail followed by weightbearing as tolerated in left lower extremity boot. CT scan showed interval increase dilatation of the ventricular system and she was recommended to be transferred to the main campus for reimplantation of the shunt. She underwent elective right occipital ventricular-atrial shunt on 10/15/2023. Postoperative course notable for deep tissue injury left heel and coccygeal pressure injury. She was discharged to acute inpatient rehab at [facility] on 10/20/2023. Patient noted to have spasticity in lower extremity associated with pain. Robaxin was stopped and Zanaflex was recommended for spasticity and gabapentin for pain associated with spasticity. She was discharged to long term facility on 11/03/2023. Symptoms/Functional Limitations Related to Spasticity: Stiffness: Yes- both LE Spasms: Yes-flexor spasms resulting into hip flexion-adduction and knee flexion bilaterally While in supine position or after laying down Spasms are relieved after sitting upright in short sitting position Spasticity interferes with sleep: Yes- wakes up 3-4 times at night Spasticity interferes with function: Yes- difficulty in positioning, cleaning, dressing, mobility and ambulation Interferes participation in therapy SPASM SCALE: >1 but <10 spontaneous spasms/hr. Severe intensity Pain related to the purpose of the visit: No pain currently She experienced impaired mobility, diminished lower extremity sensation and imbalance 2 to 3 weeks after removal of GEOLOGICAL ENGINEERING TEACHER shunt. She was walking by dragging her foot at could not lift her legs up to it advance while walking. She has been unable to walk since left tibial fracture. She started noticing spasticity and spasms in both lower extremity which is increasing. She noted improvement in foot movement after shunt reimplantation surgery but denies any benefit/change in spasticity or spasms. She mentions little regression after discharge from [facility] and attributes it likely to increasespasms and spasticity in lower extremity. She is not sure if there is any weakness as spasms/facility is interfering involuntary movements. She remembers trial of a different muscle relaxant-Zanaflexwhile at [facility] but it was not continued at the current long term facility. She is unable to tell if she had any benefit with Zanaflex as it was recommended around date of discharge. Currently he is on Robaxin and denies any benefit. She also reports related to spasticity and currently ongabapentin 300 mg at bedtime and Medrol till 12/04. She reports the pain to be sharp, intense, throbbing ranging from 8-10/10. Pain occurs mainly at night with change of position to supine or inclined. She denies any benefit with the steroids and states that it is increasing her blood sugar instead. She denies any weakness in both upper extremity or trunk. She thinks that her sensation and movement are affected below level of waist. She is able to walk with PT in the parallel bar but someone needs to stabilize her knees from going into flexion. She transfers using a slide board. She is tolerating regular diet and denies any trouble swallowing. She reports stable hearing and vision. She continues to have some numbness in lower extremity but reports better sensory perception in anterior lower extremity as compared to posterior. She feels her thinking and memory to be good. She reports low mood and was tearful at times impaired mobility and due to increasing spasms/spasticity. She states that she is not going to give up and will work on getting better to be able to go back home. She has stable bowel and bladder function. She continues to use external collection bag for the ileal conduit. She reports regular well-formed bowel movements every day. She is taking senna at night which is helpful. She has as needed Dulcolax suppository Milk of magnesia and enema available but she hardly uses the as needed medications. She has a deep tissue injury over left heel which is improving and followed by the wound care nurse. She denies any other skin breakdown or pressure injury. At baseline, she was living independently in a ranch type house with 3 steps to get in from both the entrances. She has a walk-in shower, bedroom, kitchen and laundry on the same level. She was independent in ADLs and IADLs and was able to drive. She has family who lives nearby. Her nephew used to help her as needed. She is currently exploring options to build up a ramp. She is waiting to receive her own wheelchair. Of note, she discussed about temporarily holding of posaconazole with infectious disease who were okay to try it for couple of weeks. She denies any change in her spasms or pain and has reached out to infectious disease team for resumption of treatment. Patient Entered Data PROMIS No data to display Spasticity NRS No data to display Spasm Scale No data to display Global Impression of Change No data to display Review of Systems-negative except as mentioned above Review of Diagnostic Studies: MRI BRAIN and SPINE 05/09/23 IMPRESSION: Interval decreased size of the peripherally enhancing collection in the interpeduncular, prepontine and cerebellopontine angle cisterns compared to the prior MRI. Near complete resolution of leptomeningeal enhancement involving the prepontine cistern and cerebellopontine angle cisterns, along the surface of the sabra and medulla compared to prior exam. No new or progressive pathologic enhancement. 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 Ventricular interstitial edema compared to the prior exam. Right frontal approach ventriculostomy shunt catheter is present. Interval improvement in diffuse abnormal leptomeningeal and pachymeningeal intradural enhancement throughout the cervical, thoracic and lumbar spine compared to the prior MRI 07/07/2022 with residual decreased patchy enhancement in the thoracic and lumbar spine. Patchy residual enhancement along the cauda equina nerve roots and ventral thecal sac in the lumbar spine, improved. Persistent abnormal intramedullary T2/STIR hyperintense signal in the thoracic cord with slight increased caudal extension from T2-T3 to T7-T8 compared to prior exam. Persistent deformity and expansion of the cord at these levels. Unchanged loculated arachnoid collection along the ventral lower cervical and upper thoracic spine with displacement of the cervical thoracic cord compared to prior exam. Postoperative findings of dorsal decompression at T5-T6 with involution of the previously seen postoperative collection in the laminectomy defect and resolution of mass effect. Unchanged chronic compression fracture of T5 without bony retropulsion or canal stenosis. No significant canal or foraminal stenoses in the cervical, thoracic or lumbar spine. Cervical Anatomic Variant: None. Assume 7 cervical vertebrae with counting from the craniocervical junction. Anatomic Thoracic/Lumbar Variant: None. L4-5 is considered the level of the iliac crest and assume there are 5 lumbar-type vertebrae. 2. MRI cervical and thoracic spine 10/18/23 IMPRESSION: Unchanged loculated arachnoid collection along the ventral lower cervical and upper thoracic spine with posterior cervicothoracic cord displacement, and not significantly changed from 05/09/2023. Persistent abnormal intramedullary cord signal abnormality immediately above and more prominently below the dorsally displaced cord extending to the mid T7 level, minimally improved from 05/09/2023, as detailed. Grossly stable diffuse abnormal leptomeningeal and scattered nodular pachymeningeal intradural enhancement throughout the cervical, thoracic, and upper lumbar spine, not significantly changed in appearance from 05/09/2023 although improved when compared with more remote studies. No new or progressive pathologic enhancement. Stable postoperative changes of T5-T6 dorsal decompression. Multilevel cervicothoracic spondylosis without high-grade spinal canal or neuroforaminal stenosis. Cervical Anatomic Variant: None. Assume 7 cervical vertebrae with counting from the craniocervical junction. Anatomic Thoracic/Lumbar Variant: None. L4-5 is considered the level of the iliac crest and assume there are 5 lumbar-type vertebrae 3. CT Brain 11/28 IMPRESSION: Postsurgical changes with interval decrease in size of the ventricular system, but with small bilateral subdural hygromas, which may be due to over shunting. PAST MEDICAL HISTORY 02/16/2021: Asthma 02/2021: Bladder cancer (HCC) Comment: urothelial carcinoma 04/13/2021: Diabetes mellitus type 1 (HCC) Comment: diagnosed at age 6 02/16/2021: HTN (hypertension) 02/16/2021: Neoplasm of bladder 02/16/2021: Obesity 02/16/2021: Palpitations PAST SURGICAL HISTORY 04/2021: CYSTECTOMY W/BI PELVIC LYMPHADENECTOMY 05/25/2021: CYSTO.PANENDO 12/17/2021: EXPLORATORY OF ABDOMEN Comment: Reduction of small-bowel volvulus No date: PAST SURGICAL HISTORY OF Comment: right ovary removed No date: PAST SURGICAL HISTORY OF Comment: ORIF right ankle 02/18/2021: PAST SURGICAL HISTORY OF Comment: TURBT No date: REMOVAL OF BLADDER & NODES No date: VAGINAL HYSTERECTOMY Social History Tobacco Use Smoking status: Never Smokeless tobacco: Never Vaping Use Vaping status: Never Used Substance Use Topics Alcohol use: Not Currently Drug use: Never FAMILY HISTORY Problem Relation Age of Onset Anesthesia Problems No Family History Colon Cancer No Family History Aneurysm No Family History PHYSICAL EXAMINATION: BP 103/60 (BP Site: Left Arm, BP Position: Sitting, BP Cuff Size: Regular Adult) Pulse 81 Temp 36.7 C (98 F) (Temporal) Ht 167.6 cm (5' 5.98 ) Wt 69.9 kg (154 lb) BMI 24.87 kg/m General: The patient is a well-nourished, well groomed who appears stated age. HEAD: Normocephalic EYE: -Appearance: Sclera nonicteric, PERRLA ENT: no rhinorrhea, MMM Lung: breathing unlabored in room air Skin: skin turgor is normal. Healed midline incision over anterior abdomen present. GI/: Insulin pump present over left anterior abdomen present Ileal conduit with external collecting bag noted on right side draining clear urine. Musculoskeletal: range of motion of cervical spine within normal limits. No Tenderness in cervical paraspinal muscles, temporalis muscles, TMJ area. Extremity: no edema noted in extremities. Musculoskeletal: -Right shoulder stiffness with range restriction present -No joint swelling or effusion noted Neuro: The patient was alert and oriented Articulated speech with intact comprehension Able to provide treatment history Emotional lability present Cranial Nerves: Eye movements were full without nystagmus. Facial sensation was normal to light touch and pinprick. Muscles of mastication and facial expression moved normally. Hearing was intact to conversation. Normal phonation. Sternocleidomastoid and trapezius power were normal. There was no dysarthria. Strength Right Left Shoulder abduction 4 5 Elbow flexion 5 5 Elbow extension 5 5 Wrist extension 5 5 Hip flexion 1 2+ Knee flexion 3+ 3+ Knee extension 2+ 1 Plantarflexion 2+ 3+ Dorsiflexion 3+ 3+ Strength: Bilateral FDS-FDP 5/5 Bilateral abductor digiti minimi 5/5 Bilateral EPL 5/5 bilateral FPL 5/5 Right EHL-not tested Left EHL 1+/5 . Spasticity Right Left Shoulder 0 0 Elbow flexors 0 0 Elbow extensors 0 0 Wrist flexors 0 0 Wrist extensors 0 0 Finger flexors 0 0 Finger extensors 0 0 Hip adductors 2 2 Knee extensors 0. 0 Knee flexors 2 3 Plantarflexors 1 0 Modified Warren Scale 0 - No increase in tone 1 - Slight increase in tone (catch and release at end of ROM) 1+ - Slight increase in tone, manifested by a catch, followed by minimal resistance throughout remainder (less than half of ROM) 2 - Marked increase in tone through most of the ROM, but affected part(s) easily moved 3 - Considerable increase in tone; passive movement difficult 4 - Affected part(s) rigid in flexion or extension Unable to assess hip flexor spasticity in wheelchair Bilateral Rhea absent Bilateral upper extremity DTR 2+ Bilateral lower extremity DTR 3+. Spasms observed: RUE: no right upper extremity spasms LUE: no left upper extremity spasms RLE: right lower extremity spasms Flexor spasms during assessment and with change of position-knee flexion and hip adduction LLE: left lower extremity spasms Flexor spasms during assessment and with change of position-knee flexion and hip adduction Timed 25 foot walk: N/A Assistance required: wheelchair Cerebellar: There was no nystagmus, tremors or titubation. Normal coordination and fine movements in both hands. Sensory: Normal light touch and pinprick in both upper extremity Normal light touch and pinprick in T7-T8-T9 segments bilaterally. Impaired light touch at T10 bilaterally Absent pinprick at T10 and bilateral Impaired light touch in lower extremity bilaterally Absent pinprick in lower extremity bilaterally ASSESSMENT/PLAN: Chikis Tobar is a 58 year old right-handed female with past medical history of T1DM cb/ DKA, urothelial carcinoma of the bladder s/p radical cystectomy and ileal conduit c/b SBO (Dec 2021), HTN, chronic sinusitis, asthma, right frozen shoulder, fungal meningitis, myelitis and hydrocephalus st atus post initial GEOLOGICAL ENGINEERING TEACHER shunt placement June 2022 and reimplantation in 10/15/2023. Patient reports impaired mobility and functions after removal of the patient in June 2023 and reports minimal improvement in lower extremity function post shunt reimplantation. She has paraplegia with severe spasticityand flexor spasms which is limiting her functions and participation in therapies. She was seen in clinic today for spasticity management and post inpatient rehab discharge follow-up. 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 1. Chronic incomplete spastic paraplegia (HCC) - ICD9: 344.1, ICD10: G82.22 (primary diagnosis) 2. Fungal meningitis - ICD9: 117.9, 321.1, ICD10: G02 3. Myelitis (HCC) - ICD9: 323.9, ICD10: G04.91 4. Communicating hydrocephalus (HCC) - ICD9: 331.3, ICD10: G91.0 5. Spasm of muscle - ICD9: 728.85, ICD10: M62.838 6. Impaired mobility and activities of daily living - ICD9: V49.89, ICD10: Z74.09, Z78.9 -Patient with extensive evaluation and treatment for fungal meningitis, hydrocephalus and myelitis started in May 2021 status post GEOLOGICAL ENGINEERING TEACHER shunt placement. She has had impaired mobility and function after removal of shunt in June 2023 with some improvement in lower extremity movement post patient r eimplantation. Clinically she has incomplete spastic paraplegia due to extensive spinal cord involvement. Approximate neurological level of injury T9, unable to complete ISNSCSCI exam in clinic today. -Continue to follow-up with neurosurgery as directed. -Continue to follow-up with infectious disease as directed. Recommend reaching out to infectious disease provider to discuss resumption of antifungal medication. -Continue working with physical therapy and Occupational Therapy. -Recommend consultation with rehab psychology. -Continue follow-up with wound care nurse. Continue regular turning in bed and timely pressure-relief. -Continue current bowel regimen senna at bedtime. -Patient experiencing increase in spasticity over the last few months which is interfering in her functions & therapy participation. -Discussed multimodal treatment plan for spasticity management. Continue daily range of motion and stretching exercises. Medications: Would consider trial of baclofen instead of tizanidine given low blood pressure on exam today. 1. Baclofen 10 mg tablets: increase the dose of baclofen as follows Morning Lunchtime Bedtime 5 mg 5 mg 5 mg for 3 days 5 mg 5 mg 10 mg for 3 days 5 mg 10 mg 10 mg for 3 days 10 mg 10 mg 10 mg for 3 days 10 mg 10 mg 20 mg maintenance dose Stop increasing if spasticity is controlled or if side effects occur. Do not stop baclofen abruptly, to avoid baclofen withdrawal. 2. Ok to stop Robaxin as it is not helpful. 3. Unclear role of steroids in spasticity management. Ok to d/c steroids unless started for different indication. 4. May increase bedtime dose of Gabapentin to 600 mg gradually after reaching maintenance dose of Baclofen. -Given severe spasms and spasticity in both lower extremity, would recommend chemodenervation with botulinum toxin A . It would be appropriate to consider phenol neurolysis simultaneously for adequate dosing of botulinum toxin A for both hip and knee flexors. I discussed medication dosage, usage, goals of therapy, and side effects of botulinum toxin therapy. I discussed specific risks, benefits, personnel, and alternatives related to botulinum toxin injections. The concerns about generalized side effects after Botulinum toxin A injections were discussed during the visit. Patient education guide provided. I explained that the total dose injected, specific muscles injected and dose injected in each muscle, and frequency of injections, may vary over time depending on response to treatment.Explained to the patient that most benefit is noted and passive function after botulinum toxin therapyas compared to active function which is difficult to achieve I explained that BT therapy does not al ways allow improvement of function, even when it is effective on spasticity. Patient and/or family expressed understanding of the above and agreeable to the plan of Chemodenervation with Botulinum toxin A. Patient educational handout on phenol nerve block/neurolysis provided and discussed mechanism of action, side effects and expected results with the neurolysis which patient acknowledged. The goals of spasticity management are- -reduce lower extremity spasms -Reduce discomfort/pain associated with spasms -Improve participation in therapies -Improve positioning in bed, wheelchair -Improve mobility/transfers and ambulation Plan to follow-up in 4 weeks for initial botulinum toxin A injections for both hip and knee flexors, and phenol neurolysis/nerve block for bilateral obturator nerves. Initial pre-authorization Medication: Botox [id number] Dose (units every 90 days): 400 If initial pre-authorization; list treatments failed: PT/OT and Tizanidine CPT Codes: Limbs: 23735, 06141, 45196 and 68180 EMG guidance: 21428 Limb(s) / area(s) injected: Bilateral knee flexors Bilateral hip flexors Educational materials provided: Yes Checklist for botulinum toxin or intrathecal baclofen therapy Severe spinal deformity: no History of trauma to the spine: no History of spinal surgery: yes History of seizures: no Pacemaker: no Anticoagulation: no Aspirin Bleeding disorder: no Ability to provide consent: yes Allergy to lidocaine: no Allergy to betadine: no Transportation problems: yes I spent a total of 60 minutes on the date of the service which included preparing to see the patient, [id number] patient care, completing clinical documentation, performing a medically appropriate examination, counseling and educating the patient/family/caregiver, ordering medications, tests, or p rocedures and communicating results to the patient/family/caregiver. Noel Daniels MD Physical Medicine & Rehab [facility] documented in this [facility]The [facility] Telephone encounter Note * Telephone Encounter - Sheree Montez RN - 11/30/2023 10:24 AM EDT SPECIALTY CARE COORDINATION QUICK NOTE Called patient Patient identified by name and date of : Yes Reviewed plan to schedule appt for spasticity She is currently in rehab Nurse is not available to assist with scheduling Can reschedule if transportation is not available Agreed on 12/03 appointment at 11am with Dr Daniels; slot put on hold, page sent to add on Facility address given; phone # to call if needs to reschedule Reviewed other times available on 12/06 if needed she verbalized understanding and agrees with plan [facility] Work Phone: [phone] Miscellaneous Notes* Telephone Encounter - Sheree Montez RN - 11/30/2023 10:24 AM EDT SPECIALTY CARE COORDINATION QUICK NOTE Called patient Patient identified by name and date of : Yes Reviewed plan to schedule appt for spasticity She is currently in rehab Nurse is not available to assist with scheduling Can reschedule if transportation is not available Agreed on 12/03 appointment at 11am with Dr Daniels; slot put on hold, page sent to add on Facility address given; phone # to call if needs to reschedule Reviewed other times available on 12/06 if needed she verbalized understanding and agrees with plan * Telephone Encounter - Sheree Montez RN - 11/30/2023 10:23 AM EDT ----- Message from Melo Livingston MD sent at 11/29/2023 4:53 PM EDT ----- Aaliyah, can you ask the patient or family if [facility] is convenient or if [facility] preferred? Looks like my next opening is on 12/11/at 4 pm. [facility] has an opening tomorrow morning but it may be tight for them, after that it looks like he is booked solid. It would be ok to schedule with Molly on a day I'm around. Thanks! FB ----- Message ----- From: Marlene Cordero PA-C Sent: 11/29/2023 4:21 PM EDT To: Melo Livingston MD; [facility] Gibson MD [facility] Dr Livingston and Dr Gibson, Chikis is a very nice lady Dr Oconnor and I have been working with. She originally had a GEOLOGICAL ENGINEERING TEACHER shunt implanted for fungal meningitis and was doing great. Back in June, her shunt was removed at [facility] during emergent surgery for bowel obstruction. Once removed she experienced rapid decline, mostly caused by BLE spasticity and weakness. We were able to get the shunt reimplanted in September but she continues to experience severe spasms in the BLE which are keeping her from walking. To make matters worse, her ventricles are now collapsed with small hygromas so I have had to turn her shunt off. She is really struggling with these spasms and I was hoping one of you could see her sooner rather than later to help her get some relief. Thank you! Marlene documented in this encounterThe [facility]08-16-[facility]24 Telephone encounter Note * Telephone Encounter - Sheree Montez RN - 11/30/2023 10:23 AM EDT ----- Message from Melo Livingston MD sent at 11/29/2023 4:53 PM EDT ----- Aaliyah, can you ask the patient or family if [facility] is convenient or if [facility] preferred? Looks like my next opening is on at 4 pm. [facility] has an opening tomorrow morning but it may be tight for them, after that it looks like he is booked solid. It would be ok to schedule with Molly on a day I'm around. Thanks! FB ----- Message ----- From: Marlene Cordero PA-C Sent: 11/29/2023 4:21 PM EDT To: Melo Livingston MD; [facility] Gibson MD [facility] Dr Livingston and Dr Gibson, Chikis is a very nice lady Dr Oconnor and I have been working with. She originally had a GEOLOGICAL ENGINEERING TEACHER shunt implanted for fungal meningitis and was doing great. Back in June, her shunt was removed at [facility] during emergent surgery for bowel obstruction. Once removed she experienced rapid decline, mostly caused by BLE spasticity and weakness. We were able to get the shunt reimplanted in September but she continues to experience severe spasms in the BLE which are keeping her from walking. To make matters worse, her ventricles are now collapsed with small hygromas so I have had to turn her shunt off. She is really struggling with these spasms and I was hoping one of you could see her sooner rather than later to help her get some relief. Thank you! Marlene [facility]08-15-2024 History of Present illness Narrative* Marlene Cordero PA-C - 11/29/2023 4:00 PM EDT CC: GEOLOGICAL ENGINEERING TEACHER shunt f/u HPI: Mrs Chikis Tobar comes to clinic today for surgical f/u. 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 Chikis's shunt was previously removed at [facility] on 07/10/23 following surgery for bowel obstruction followed by worsening symptoms. At last visit, on 10/31/23, her right leg movement was improved but she continued to complain of BLE spasms. At last visit, CT brain showed slit like ventricles and her Certas valve was adjusted from 6 to 7. Chikis denies any major changes in symptoms since last visit. She continues to experience severe spasms in the BLE which have kept her from walking. She is still working with PT at rehab without much improvement. Focused Exam: Right frontal shunt site examined, [...] XII: Tongue protrusion full and midline Motor: minimal movement in BLE due to severe spasticity. Impression: Chikis Tobar is a pleasant 58 year old female with a history of communicating hydrocephalus. 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 Her shunt was re inserted on 10/11/23 with Certas valve. At last visit her CT brain showed slit like ventricles and her Certas valve was adjusted from 6 to 7. Since last visit, there have beenno major changes in symptoms. She continues to complains of severe BLE spasticity that restricts her from walking. She is only able to walk the parrellel bar at rehab for a short distance with support before spasms cause her to stop. CT brain today shows further reduction in ventricle size and small bilateral subdural hygromas. Discussed in detail possible benefits and risks of GEOLOGICAL ENGINEERING TEACHER shunt adjustment. After discussion with Chikis, she agreed to undergo shunt adjustment. Certas valve shunt was adjusted from 7 to 8. We discussed in detail the warning signs and symptoms of overdrainage as well as w hen to contact our office or present to the ED if concern is severe. Follow up in [address] brain. Consult and message sent to [facility] requesting appt Plan: Shunt information Shunt type: Certas Initial settin New settin Marlene Cordero PA-C documented in this encounterThe [facility] System08-15-2024 History of Present illness Narrative* Nikky Lino RT(R) - 11/29/2023 3:15 PM EDT Radiology Service Progress Note PATIENT NAME: Chikis Tobar DATE OF SERVICE: November 29, 2023 TIME: 3:01 PM PATIENT IDENTITY VERIFICATION COMPLETED USING TWO (2) IDENTIFIERS: Name and Date of confirmedby patient verbally and Name and Date of confirmed by identification band. FALL SCREENING: Has the patient had 2 falls in the last year or 1 fall with injury or currently using an Ambulatory Assistive Device (Walker, Cane, Wheelchair, Crutches, etc.)? Yes, Patient High Riskfor Falls What interventions were put in place to prevent falls during this visit? [place] Risk Wristband Applied and Offered Assistance with Transfers/Clothing PATIENT GENDER DATA: Female. status: : No status: NO. PATIENT RELEVANT IMPLANT DATA REVIEWED: Yes PATIENT PRESENTS WITH AN IMPLANTABLE OR ATTACHED AIRCRAFT DESIGN ENGINEER: No RADIOLOGY DEPARTMENT: CT; Exam(s) Completed: Brain PERIPHERAL IV DATA: Not applicable SIGNED BY: RT Jeffery(R) November 29, 2023 3:01 PM documented in this encounterThe Metrohealth System08-15-2024 History of Present illness Narrative* Sharan Dominguez APRN.STABLE HELPER - 11/29/2023 3:02 PM EDT Images from the original note were not included. [facility] PROVIDER PROGRAM - FOLLOW UP VISIT PATIENT NAME: Chikis Tobar SERVICE DATE: 11/29/[address] PL[address] OF SERVICE FOR THIS VISIT[facility]POS [facility] Facility Name: [facility] Level of Care: Skilled Asked to see patient at the request of and in collaboration with Dr. Parisi for my opinion regardingpressure injury of the left heel. Requested to see patient today for wound assessment and treatment evaluation CHIEF COMPLAINT: Follow up wound care evaluation of deep tissue pressure injury of the left heel. INTERVAL HISTORY Information provided by: Chart review and Patient 58 year old y/o female who presents with a wound Location: Left posterior heel Onset: POA Aggravating factors: Diabetes mellitus, Mechanical devices related, Positioning, and Pressure Wound etiology: Pressure Associated pain with wound: Yes Relieving factors for wound pain: Positioning Treatments: Current: Betadine, ABD, kerlix Remainder unchanged Future Appointments Date Time Provider Department Center 11/29/2023 3:[address] MAIN [facility] 11/29/2023 4:00 PM Marlene Cordero PA-C [facility] 12/21/2023 9:00 AM Reggie Butler MD [facility] 01/10/2024 10:20 AM XR [facility] 01/10/2024 11:00 AM Aashish Monge PA-C [facility] 02/06/2024 11:00 AM Ruddy Gupta MD ENDOAV Rej 09/16/2024 10:45 AM LAB MAIN Q2-1 LBQ2-1 Mn Q Bldg 09/16/2024 11:[address] 2 MAIN QB (I-STAT) RCTMN [facility] IMPRESSION/RECOMMENDATIONS The patient's age, altered mobility and other co morbidities are likely to impact wound and skin integrity Additional impediments to healing Diabetic: Yes Anticoagulation: Aspirin Antibiotics: No Steroids: No (L89.620) Pressure injury of left heel, unstageable (HCC) (primary encounter diagnosis) Comment: Unstageable pressure injury to the posterior aspect of the left heel, POA to SNF, with slight decrease in measurements noted. Patient given the ok per orthopedics to remove walking boot at this time to assist in healing of pressure injury. Wound less tender for patient today as compared toprevious visit. X-ray obtained at previous visit negative for osteomyelitis. Wound remains comprised of dry, firm eschar without lifting or drainage noted. Periwound remains dry and intact with some blanchable erythema. Will plan to continue betadine to the area. DP and PT pulses +2. HPI: Patient s/p left tibia fracture with use of walking boot post-operatively, subsequent pressureinjury d/t mechanical device. Plan: -Monitor for any s/s of infection- notify STABLE HELPER/MD of any pertinent findings -Wound care orders as follows for bacteriostatic properties: Wound Care Order: - Cleanse wound and periwound skin with normal saline and gauze, gently pat dry. - Apply betadine liberally to wound and periwound - Cover with ABD and kerlix - Change dressing daily and PRN. (R53.81) Physical deconditioning Comment: Patient requires assistance with ADL's and mobility d/t recent left tibia fracture, hydrocephalus. Working with PT and OT. Plan: - Turn and reposition frequently - Frequent weight shifts when seated - Nutritional support as appropriate FOLLOW UP PLAN Weekly as needed SUBJECTIVE REVIEW: Information provided by: Patient and Facility nurse Review of Systems Constitutional: Positive for activity change (Decreased). Negative for chills, diaphoresis and fever. HENT: Negative. Respiratory: Negative. Cardiovascular: Negative. Gastrointestinal: Negative. Genitourinary: + urostomy Musculoskeletal: Positive for arthralgias and gait problem. Skin: Positive for wound. Neurological: Positive for weakness (Generalized). Psychiatric/Behavioral: Negative Nutrition DIET: NCS (No Concentrated Sweets) diet, Regular texture, Regular/Thin consistency SUPPLEMENTS: Anuel APPETITE: fair MEDICATION REVIEW Medications listed in Epic during SNF admission may not be current. Refer to facility record Medications Reviewed per facility list done: Yes Allergies reviewed per facility list Prior chart notes reviewed SOCIAL HISTORY Tobacco Use Past: No Current: No OBJECTIVE Physical Exam Vitals and nursing note reviewed. Constitutional: General: She is not in acute distress. Appearance: She is well-groomed and normal weight. She is not ill-appearing or toxic-appearing. Comments: Pleasant middle aged female sitting upright in wheelchair, calm and cooperative. HENT: Head: Normocephalic and atraumatic. Nose: No congestion. Mouth/Throat: Mouth: Mucous membranes are moist. Pharynx: Oropharynx is clear. Cardiovascular: Rate and Rhythm: Normal rate. Pulses: Normal pulses. Pulmonary: Effort: Pulmonary effort is normal. No respiratory distress. Abdominal: General: Abdomen is flat. There is no distension. Palpations: Abdomen is soft. Musculoskeletal: General: Tenderness (LLE). Right lower leg: No edema. Left lower leg: No edema. Skin: General: Skin is warm and dry. Findings: Wound (See HPI) present. Neurological: Mental Status: She is alert and oriented to person, place, and time. Motor: Weakness present. Gait: Gait abnormal. Psychiatric: Attention and Perception: Attention normal. Mood and Affect: Mood and affect normal. Speech: Speech normal. Behavior: Behavior normal. Behavior is cooperative. WOUND ASSESSMENT Location: Left Posterior Heel Type: pressure injury Stage: Unstageable Exposed structure:None Progress: Stable- slight decrease in measurements Wound measurements (cm): 3.4 x 2.5 x UTD Full thickness: N/A Tunneling/undermining: none Wound tissue color: 100% firm, dry eschar Periwound tissue: dry, intact, blanchable erythema Drainage: none Drainage odor: None ANCILLARY DATA REVIEWED Managed by facility. Counseled on wound prognosis and plan of care, Counseled patient, family or facility staff on woundhealing process. Counseled on treatment options, and Written wound care instructions left in facility. Visit billing based on time: No, visit will not be billed on time? I spent a total of 20 minutes on the date of the service which included preparing to see the patient, [id number] patient care, completing clinical documentation, reviewing separately obtained history, performing a medically appropriate examination, counseling and educating the patient/family/caregiver, and communicating with other HCPs (not separately reported). Joint visit made with Daniel Sandoval LPN. Plan of Care discussed with facility nursing staff, patient, and referring provider. Wound care was performed during visit. All documentation from previous visit of 11/22/2023 was copied and pasted, documentation has been reviewed and edited as necessary for today's visit on 11/29/2023. SIGNATURE: Sharan Dominguez APRN.CNP, CWOCN PATIENT NAME: Chikis Tobar DATE: November 29, 2023 OFFICE #: [phone] PAGER/CELL: [phone] documented in this encounterThe [facility] System08-15-2024 History of Present illness Narrative* Dilcia Carl APRN.CNP - 11/29/2023 11:29 AM EDT Images from the original note were not included. Connected Care Unit Progress Note Patient Name: Chikis Tobar Patient Facility: [facility] Admit Date 11/09/23 Level of Care: Skilled SNF Attending: Amelia Parisi D.O. Service Date: 11/29/2023 Code Status: Chief Complaint: Evaluation regarding hydrocephalus, meningitis ASSESSMENT AND PLAN ASSESSMENT/PLAN: 1. 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 denies SHANNON, dizziness or double/blurred vision at this time 11/15: No change in condition. Pt. participating in PT/OT, eating and drinking appropriately. No bowel or bladder issues. afebrile, non-toxic appearing. Pt.c/o BLE muscle cramps, Mag 1.9, muscle relaxer changed to methocarbamol 750mg po QID. Pt. has f/u with MD today to possibly hold anti-fungal due to muscle spasms that may be 2/2 anti-fungal. hemodynamically stable. No acute issues at this time. 11/19: No change in condition. Pt. participating in PT/OT as tolerated with BLE muscle spasms. Pt. states there is slight improvement with change in muscle relaxer and the muscle spasms. will attempt medrol dose pack therapy at this time and monitor blood glucose closely. eating and drinking appropriately. No bowel or bladder issues. Labs reviewed, hemodynamically stable. No acute issues at this time. 11/21: Hemodynamically stable, eating and drinking appropriately. Labs reviewed. participating in pt/ot, afebrile, non-toxic appearing. pt. refusing medrol dose pack at this time, pt. wants to wait onemore week of cessation of anti-fungal. no bowel or bladder issues at this time. No acute issues. 11/28: No change in condition. Pt. participating in PT/OT, eating and drinking appropriately. No bowel or bladder issues. afebrile, non-toxic appearing. pt. c/o continued BLE muscle spasms with pain, current regimen non-effective. will start medrol dose pack at this time, hemodynamically stable. No acute issues at this time. - continue ASA 81mg po BID for DVT prophylaxis - continue methocarbamol 750mg po QID - medrol dose pack - continue posaconazole - continue to monitor CBC/CMP - continue to monitor Dilcia Carl Appointments for Next 60 Days Date Time Provider Location Dept Phone 11/29/2023 12:00 PM SHARAN DOMINGUEZ [facility] [phone] 11/29/2023 2:00 PM JAMIE MCCARTY [facility] [phone] 11/29/2023 3:[address] [facility] [phone] 11/29/2023 4:00 PM CONSUELO MARLENE [facility] [phone] 12/21/2023 9:00 AM SHWETAREGGIE YEN [facility] [phone] 01/10/2024 10:20 AM XR [facility] 01/10/2024 11:00 AM AASHISH MONGE [facility] [phone] HPI: (Per discharge summary) 58-year-old female with PMHx signficant for T1DM cb/ DKA, urothelial carcinoma of the bladder s/p radical cystectomy and ileal conduit c/b SBO (Dec 2021), HTN, chronic sinusitis, asthma, persistent encephalopathy and hydrocephalus. 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 She was followed by ID at [facility] and was on posaconazole. She is s/p shunt externalization at [facility] (06/27/23) during abdominal surgery for SBO and eventual VPS explantation (07/10/23). She was o riginally scheduled for shunt reinternalization with Dr. Oconnor on 11/20/23. She fell due to leg spasms and presented to OSH ED and admitted on 10/07/23. Found to have L tibial fx s/p [facility]amed[facility]. [facility] (10[facility]). She was then [place] [facility] [place]. She is s/p VPS reimplantation by Dr. Oconnor and Dr. Evans on 10/14. Intraoperative CSF cultures without growth. Plan to continue posaconazole at least through end of this year. She isto start asa bid on 10/24 for dvt ppx. Seen by WOCN for wounds as below - Coccyx : healed. -Left posterior heel: POA -Left anterior foot : Deep Tissue Pressure Injury, acquired While in the ARU, pt received physical therapy for range of motion, transfer training, endurance/ balance, fall prevention, and gait training with appropriate assistive devices, occupational therapy for activity of daily living/equipment/ functional transfer evaluation and training, and speech thera py for language evaluation and speech re-education. Team conferences were held to monitor progress and tailor program to patients needs. Patient had appropriate pain management, bowel management, sleep management, GI and DVT prophylaxis. Pt was stable throughout ARU course without major medical comp lication. Pt participated in all therapies and although with significant gradual improvement, would benefit from continuing skilled therapies and nursing at SNF prior to returning home. 10/23 stop robaxin, add zanaflex 4mg at bedtime and 2mg tid prn 10/27 zanaflex scheduled qid 10/28 d/w IM get f/u head CT d/t unresolved spasticity with pain 10/30 Shunt adjusted by Neurosurg from to 7 11/04 add gabapentin 300mg at bedtime Interval HPI: Pt. is alert, calm and cooperative during ROS and physical exam. There are no concerns for bowel issues. ileal conduit without complications, appropriate output without sediment or hematuria. Pt. is eating and drinking fluids appropriately. walker boot in place, denies pain at this time. pt. denies SHANNON, dizziness or double/blurred vision at this time. All labs and vital signs were reviewed. Pt. is participating in PT/OT without complications. Per nursing staff there are no acute changes to be addressed at this time. 8/2: No change in condition. Pt. participating in PT/OT, eating and drinking appropriately. No bowel or bladder issues. afebrile, non-toxic appearing. Pt.c/o BLE muscle cramps, Mag 1.9, muscle relaxer changed to methocarbamol 750mg po QID. Pt. has f/u with MD today to possibly hold anti-fungal due to muscle spasms that may be 2/2 anti-fungal. hemodynamically stable. No acute issues at this time. 8/6: No change in condition. Pt. participating in PT/OT as tolerated with BLE muscle spasms. Pt. states there is slight improvement with change in muscle relaxer and the muscle spasms. will attempt medrol dose pack therapy at this time and monitor blood glucose closely. eating and drinking appropriately. No bowel or bladder issues. Labs reviewed, hemodynamically stable. No acute issues at this time. 11/21: Hemodynamically stable, eating and drinking appropriately. Labs reviewed. participating in pt/ot, afebrile, non-toxic appearing. pt. refusing medrol dose pack at this time, pt. wants to wait onemore week of cessation of anti-fungal. no bowel or bladder issues at this time. No acute issues. 11/28: No change in condition. Pt. participating in PT/OT, eating and drinking appropriately. No bowel or bladder issues. afebrile, non-toxic appearing. pt. c/o continued BLE muscle spasms with pain, current regimen non-effective. will start medrol dose pack at this time, hemodynamically stable. No acute issues at this time. PAST MEDICAL HISTORY 02/16/2021: Asthma 02/2021: Bladder cancer (HCC) Comment: urothelial carcinoma 04/13/2021: Diabetes mellitus type 1 (HCC) Comment: diagnosed at age 6 02/16/2021: HTN (hypertension) 02/16/2021: Neoplasm of bladder 02/16/2021: Obesity 02/16/2021: Palpitations SUBJECTIVE: Review of Systems Constitutional: Positive for activity change and fatigue. Negative for fever. Respiratory: Negative. Cardiovascular: Negative. Gastrointestinal: Negative. Musculoskeletal: Positive for arthralgias. Neurological: Positive for weakness. Psychiatric/Behavioral: Negative. No reports of falls/injuries, changes in cognition/behaviors, or any uncontrolled pain exacerbations. Medications: Medications listed in [facility] during SNF admission may not be current. Refer to facility record. Patient records, current medications, most recent labs, family/social history (unchanged) Reviewed.Refer to facility records. OBJECTIVE: Labs/diagnostics: reviewed Physical Exam: Physical Exam Constitutional: General: She is not in acute distress. Appearance: She is not toxic-appearing. HENT: Mouth/Throat: Mouth: Mucous membranes are moist. Pharynx: Oropharynx is clear. Eyes: Conjunctiva/sclera: Conjunctivae normal. Cardiovascular: Rate and Rhythm: Normal rate. Pulses: Normal pulses. Heart sounds: Normal heart sounds. Pulmonary: Effort: Pulmonary effort is normal. Breath sounds: Normal breath sounds. Abdominal: General: Bowel sounds are normal. Palpations: Abdomen is soft. Skin: General: Skin is warm and dry. Capillary Refill: Capillary refill takes less than 2 seconds. Neurological: Mental Status: She is alert. Mental status is at baseline. Motor: Weakness present. Psychiatric: Mood and Affect: Mood normal. Behavior: Behavior normal. Some elements from the note on 11/22/23 have not changed and have been copied from that note. Any changes in condition have been addressed and charted accordingly. POC discussed with appropriate parties and nursing staff. Electronically signed by Dilcia Carl APRN.STABLE HELPER documented in this encounterThe [facility]08-13-2024 History of Present illness Narrative* Dilcia Carl APRN.CNP - 11/27/2023 12:14 PM EDT pain med refilled documented in this encounterThe [facility]health System08-13-2024 Instructions* Patient Instructions* Aashish Monge PA-C - 11/27/2023 9:38 AM EDT Wound care to left heel due to pressure ulcer. WBAT, ROMAT with PT. Ok to get up and work on gait training with PT. documented in this encounterThe [facility] System08-13-2024 History of Present illness Narrative* Aashish Monge PA-C - 11/27/2023 9:22 AM EDT Images from the original note were not included. Orthopaedic Surgery Clinic Established Visit Patient Date of : 1965 Date of Surgery: 10/08/2023 Procedure Performed: Left tibia IMN History: Patient presents to clinic 7 weeks postoperatively from the above procedure. She is doing okay today. She was at [facility] and is now at another SNF. She states that has been having an increase in the muscle spasms since she had her shunt replaced. She has been working with PT but states that she has not been walking at all with PT. She has done some weight bearing. Denies new numbness or tingling. Patient does have hx of neuropathy. Physical Exam: General: No acute distress, alert and oriented x3 and Awake and alert Left Lower Extremity: Skin:Incision well healed without any evidence of infection. No erythema, drainage or expressible discharge and Closed without ulcerations, lacerations, rashes or abrasions. Pressure wound to posterior heel Vascular: Foot warm and well perfused with brisk capillary refill and Palpable DP/PT pulse Neuro: Sensation intact in saphenous/sural/deep peroneal/superficial peroneal/tibial nerve distribution Musculoskeletal: No tenderness to palpation over fracture, ROM difficult to assess due to muscle spasms Imaging: I personally reviewed xrays of left tib/fib and discussed with patient: Demonstrate maintained fracture alignment with no interval displacement, intact hardware Assessment and Plan: Patient is a 58 year old female 7 weeks s/p Left tibia IMN -Patient is doing well postoperatively -Patient did not require a refill of pain medications today -Continue working with PT on gait training -Discussed removing boot at this time due to pressure wound to the heel -With WB discussed wearing a supportive shoe with ambulation -Recommend wound care to heel wound, advised to call office if wound gets worse -Weightbearing: Weight bearing as tolerated , Range of motion as tolerated, and Strengthening as tolerated -Follow up: 6-8 weeks with x-rays Aashish Monge PA-C documented in this encounterThe [facility] System08-13-2024 History of Present illness Narrative* Xavi Kecia, RT(R) - 11/27/2023 8:20 AM EDT Radiology Service Progress Note PATIENT NAME: Chikis Tobar DATE OF SERVICE: November 27, 2023 TIME: 8:59 AM PATIENT IDENTITY VERIFICATION COMPLETED USING TWO (2) IDENTIFIERS: Name and Date of confirmedby patient verbally. FALL SCREENING: Has the patient had 2 falls in the last year or 1 fall with injury or currently using an Ambulatory Assistive Device (Walker, Cane, Wheelchair, Crutches, etc.)? [facility] GENDER DATA: Female. status: : No status: NO. PATIENT RELEVANT IMPLANT DATA REVIEWED: Not Applicable PATIENT PRESENTS WITH AN IMPLANTABLE OR ATTACHED AIRCRAFT DESIGN ENGINEER: No RADIOLOGY DEPARTMENT: General X-ray: Exam(s) Completed: Lower Extremity X- Ray(s): Tibia Fibula, Left and Ankle, Left PERIPHERAL IV DATA: Not applicable SIGNED BY: Katiana Hurley RT(R) November 27, 2023 8:59 AM documented in this encounterThe [facility] System08-11-2024 History of Present illness Narrative* Mary Kay APRN.CNP - 11/25/2023 12:58 PM EDT error documented in this encounterThe [facility] System08-08-2024 History of Present illness Narrative* Dilcia Carl APRN.CNP - 11/22/2023 4:57 PM EDT Images from the original note were not included. Connected Care Unit Progress Note Patient Name: Chikis Tobar Patient Facility: [facility] Admit Date 11/09/23 Level of Care: Skilled SNF Attending: Amelia Parisi D.O. Service Date: 11/22/2023 Code Status: Chief Complaint: Evaluation regarding hydrocephalus, meningitis ASSESSMENT AND PLAN ASSESSMENT/PLAN: 1. 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 denies SHANNON, dizziness or double/blurred vision at this time 11/15: No change in condition. Pt. participating in PT/OT, eating and drinking appropriately. No bowel or bladder issues. afebrile, non-toxic appearing. Pt.c/o BLE muscle cramps, Mag 1.9, muscle relaxer changed to methocarbamol 750mg po QID. Pt. has f/u with today to possibly hold anti-fungal due to muscle spasms that may be 2/2 anti-fungal. hemodynamically stable. No acute issues at this time. 11/19: No change in condition. Pt. participating in PT/OT as tolerated with BLE muscle spasms. Pt. states there is slight improvement with change in muscle relaxer and the muscle spasms. will attempt medrol dose pack therapy at this time and monitor blood glucose closely. eating and drinking appropriately. No bowel or bladder issues. Labs reviewed, hemodynamically stable. No acute issues at this time. 11/21: Hemodynamically stable, eating and drinking appropriately. Labs reviewed. participating in pt/ot, afebrile, non-toxic appearing. pt. refusing medrol dose pack at this time, pt. wants to wait onemore week of cessation of anti-fungal. no bowel or bladder issues at this time. No acute issues. - continue ASA 81mg po BID for DVT prophylaxis - continue methocarbamol 750mg po QID - continue posaconazole - continue to monitor CBC/CMP - continue to monitor Dilcia Carl Appointments for Next 60 Days Date Time Provider Location Dept Phone 11/22/2023 12:00 PM SHARAN DOMINGUEZ [facility] [phone] 11/27/2023 8:20 AM XR [facility] 11/27/2023 9:20 AM [facility] [phone] 11/29/2023 3:[address] MAIN CA Mn Ca Bldg [phone] 11/29/2023 4:00 PM MARLENE CORDERO [facility] [phone] 12/21/2023 9:00 AM REGGIE BUTLER [facility] [phone] HPI: (Per discharge summary) 58-year-old female with PMHx signficant for T1DM cb/ DKA, urothelial carcinoma of the bladder s/p radical cystectomy and ileal conduit c/b SBO (Dec 2021), HTN, chronic sinusitis, asthma, persistent encephalopathy and hydrocephalus. 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 She was followed by ID at [facility] and was on posaconazole. She is s/p shunt externalization at [facility] (06/27/23) during abdominal surgery for SBO and eventual VPS explantation (07/10/23). She was o riginally scheduled for shunt reinternalization with Dr. Ocononr on 11/20/23. She fell due to leg spasms and presented to OSH ED and admitted on 10/07/23. Found to have L tibial fx s/p intramedullary nailDrGiancarlo Morejon at [facility] (10/08/23). She was then transferred [place] [facility] [place]. She is s/p VPS reimplantation by Dr. Oconnor and Dr. Evans on 10/14. Intraoperative CSF cultures without growth. Plan to continue posaconazole at least through end of this year. She isto start asa bid on 10/24 for dvt ppx. Seen by WOCN for wounds as below - Coccyx : healed. -Left posterior heel: POA -Left anterior foot : Deep Tissue Pressure Injury, acquired While in the ARU, pt received physical therapy for range of motion, transfer training, endurance/ balance, fall prevention, and gait training with appropriate assistive devices, occupational therapy for activity of daily living/equipment/ functional transfer evaluation and training, and speech thera py for language evaluation and speech re-education. Team conferences were held to monitor progress and tailor program to patients needs. Patient had appropriate pain management, bowel management, sleep management, GI and DVT prophylaxis. Pt was stable throughout ARU course without major medical comp lication. Pt participated in all therapies and although with significant gradual improvement, would benefit from continuing skilled therapies and nursing at SNF prior to returning home. 10/23 stop robaxin, add zanaflex 4mg at bedtime and 2mg tid prn 10/27 zanaflex scheduled qid 10/28 d/w IM get f/u head CT d/t unresolved spasticity with pain 10/30 Shunt adjusted by Neurosurg from to 7 11/04 add gabapentin 300mg at bedtime Interval HPI: Pt. is alert, calm and cooperative during ROS and physical exam. There are no concerns for bowel issues. ileal conduit without complications, appropriate output without sediment or hematuria. Pt. is eating and drinking fluids appropriately. walker boot in place, denies pain at this time. pt. denies SHANNON, dizziness or double/blurred vision at this time. All labs and vital signs were reviewed. Pt. is participating in PT/OT without complications. Per nursing staff there are no acute changes to be addressed at this time. 8/2: No change in condition. Pt. participating in PT/OT, eating and drinking appropriately. No bowel or bladder issues. afebrile, non-toxic appearing. Pt.c/o BLE muscle cramps, Mag 1.9, muscle relaxer changed to methocarbamol 750mg po QID. Pt. has f/u with MD today to possibly hold anti-fungal due to muscle spasms that may be 2/2 anti-fungal. hemodynamically stable. No acute issues at this time. 8: No change in condition. Pt. participating in PT/OT as tolerated with BLE muscle spasms. Pt. states there is slight improvement with change in muscle relaxer and the muscle spasms. will attempt medrol dose pack therapy at this time and monitor blood glucose closely. eating and drinking appropriately. No bowel or bladder issues. Labs reviewed, hemodynamically stable. No acute issues at this time. 88: Hemodynamically stable, eating and drinking appropriately. Labs reviewed. participating in pt/ot, afebrile, non-toxic appearing. pt. refusing medrol dose pack at this time, pt. wants to wait onemore week of cessation of anti-fungal. no bowel or bladder issues at this time. No acute issues. PAST MEDICAL HISTORY 02/16/2021: Asthma 02/2021: Bladder cancer (HCC) Comment: urothelial carcinoma 04/13/2021: Diabetes mellitus type 1 (HCC) Comment: diagnosed at age 6 02/16/2021: HTN (hypertension) 02/16/2021: Neoplasm of bladder 02/16/2021: Obesity 02/16/2021: Palpitations SUBJECTIVE: Review of Systems Constitutional: Positive for activity change and fatigue. Negative for fever. Respiratory: Negative. Cardiovascular: Negative. Gastrointestinal: Negative. Musculoskeletal: Positive for arthralgias. Neurological: Positive for weakness. Psychiatric/Behavioral: Negative. No reports of falls/injuries, changes in cognition/behaviors, or any uncontrolled pain exacerbations. Medications: Medications listed in Epic during SNF admission may not be current. Refer to facility record. Patient records, current medications, most recent labs, family/social history (unchanged) Reviewed.Refer to facility records. OBJECTIVE: Labs/diagnostics: reviewed Physical Exam: Physical Exam Constitutional: General: She is not in acute distress. Appearance: She is not toxic-appearing. HENT: Mouth/Throat: Mouth: Mucous membranes are moist. Pharynx: Oropharynx is clear. Eyes: Conjunctiva/sclera: Conjunctivae normal. Cardiovascular: Rate and Rhythm: Normal rate. Pulses: Normal pulses. Heart sounds: Normal heart sounds. Pulmonary: Effort: Pulmonary effort is normal. Breath sounds: Normal breath sounds. Abdominal: General: Bowel sounds are normal. Palpations: Abdomen is soft. Skin: General: Skin is warm and dry. Capillary Refill: Capillary refill takes less than 2 seconds. Neurological: Mental Status: She is alert. Mental status is at baseline. Motor: Weakness present. Psychiatric: Mood and Affect: Mood normal. Behavior: Behavior normal. Some elements from the note on 11/20/23 have not changed and have been copied from that note. Any changes in condition have been addressed and charted accordingly. POC discussed with appropriate parties and nursing staff. Electronically signed by Dilcia Carl APRN.STABLE HELPER documented in this encounterThe [facility] System08-08-2024 History of Present illness Narrative* Sharan Dominguez APRN.MARIS - 11/22/2023 8:43 AM EDT Images from the original note were not included. [facility] PROVIDER PROGRAM - FOLLOW UP VISIT PATIENT NAME: Chikis Tobar SERVICE DATE: 11/22/[address] PL[address] OF SERVICE FOR THIS VISIT[facility]POS [facility] Facility Name: [facility] Level of Care: Skilled Asked to see patient at the request of and in collaboration with Dr. Parisi for my opinion regardingpressure injury of the left heel. Requested to see patient today for wound assessment and treatment evaluation CHIEF COMPLAINT: Follow up wound care evaluation of deep tissue pressure injury of the left heel. INTERVAL HISTORY Information provided by: Chart review and Patient 58 year old y/o female who presents with a wound Location: Left posterior heel Onset: POA Aggravating factors: Diabetes mellitus, Mechanical devices related, Positioning, and Pressure Wound etiology: Pressure Associated pain with wound: Yes Relieving factors for wound pain: Positioning Treatments: Current: Betadine, ABD, kerlix Remainder unchanged Future Appointments Date Time Provider Department Center 11/22/2023 12:00 PM Sharan Dominguez APRN.STABLE HELPER [facility] 11/27/2023 8:20 AM XR [facility] 11/27/2023 9:20 AM Aashish Monge PA-C [facility] 11/29/2023 3:[address] MAIN CA RCTCAL Mn Ca Bldg 11/29/2023 4:00 PM Marlene Cordero PA-C NREUS[facility] Mn S Bldg 12/21/2023 9:00 AM Reggie Butler MD NREUS2 Mn S Bldg 02/06/2024 11:00 AM Ruddy Gupta MD ENDOAV Rej 09/16/2024 10:45 AM LAB MAIN Q2-1 LBQ2-1 Mn Q Bldg 09/16/2024 11:[address] 2 MAIN QB (I-STAT) RCTMN Mn Q Bldg IMPRESSION/RECOMMENDATIONS The patient's age, altered mobility and other co morbidities are likely to impact wound and skin integrity Additional impediments to healing Diabetic: Yes Anticoagulation: Aspirin Antibiotics: No Steroids: No (L89.620) Pressure injury of left heel, unstageable (HCC) (primary encounter diagnosis) Comment: Slight decrease in measurements noted to pressure injury to the posterior aspect of the left heel, POA to SNF. However, patient reports increased pain to the heel- will plan to obtain x-ray to rule out osteomyelitis or any other acute bony abnormality. Wound remains comprised of dry, firm eschar without lifting or drainage noted. Periwound remains dry and intact with some blanchable erythema. Will plan to continue betadine to the area. DP and PT pulses +2. HPI: Patient s/p left tibia fracture with use of walking boot, subsequent pressure injury d/t mechanical device. Plan: -Obtain X-ray of left foot with attention to heel- notify STABLE HELPER of results -Monitor for any s/s of infection- notify STABLE HELPER/MD of any pertinent findings -Wound care orders as follows for bacteriostatic properties: Wound Care Order: - Cleanse wound and periwound skin with normal saline and gauze, gently pat dry. - Apply betadine liberally to wound and periwound - Cover with ABD and kerlix - Change dressing daily and PRN. (R53.81) Physical deconditioning Comment: Patient requires assistance with ADL's and mobility d/t recent left tibia fracture, hydrocephalus. Working with PT and OT. WBAT to LLE. Walking boot in place to LLE. Plan: - Turn and reposition frequently - Frequent weight shifts when seated - Nutritional support as appropriate FOLLOW UP PLAN Weekly as needed SUBJECTIVE REVIEW: Information provided by: Patient and Facility nurse Review of Systems Constitutional: Positive for activity change (Decreased). Negative for chills, diaphoresis and fever. HENT: Negative. Respiratory: Negative. Cardiovascular: Negative. Gastrointestinal: Negative. Genitourinary: + urostomy Musculoskeletal: Positive for arthralgias and gait problem. Skin: Positive for wound. Neurological: Positive for weakness (Generalized). Psychiatric/Behavioral: Negative Nutrition DIET: NCS (No Concentrated Sweets) diet, Regular texture, Regular/Thin consistency SUPPLEMENTS: Anuel APPETITE: fair MEDICATION REVIEW Medications listed in Epic during SNF admission may not be current. Refer to facility record Medications Reviewed per facility list done: Yes Allergies reviewed per facility list Prior chart notes reviewed SOCIAL HISTORY Tobacco Use Past: No Current: No OBJECTIVE Physical Exam Vitals and nursing note reviewed. Constitutional: General: She is not in acute distress. Appearance: She is well-groomed and normal weight. She is not ill-appearing or toxic-appearing. Comments: Pleasant middle aged female sitting upright in wheelchair, calm and cooperative. HENT: Head: Normocephalic and atraumatic. Nose: No congestion. Mouth/Throat: Mouth: Mucous membranes are moist. Pharynx: Oropharynx is clear. Cardiovascular: Rate and Rhythm: Normal rate. Pulses: Normal pulses. Pulmonary: Effort: Pulmonary effort is normal. No respiratory distress. Abdominal: General: Abdomen is flat. There is no distension. Palpations: Abdomen is soft. Musculoskeletal: General: Tenderness (LLE) and signs of injury present. Right lower leg: No edema. Left lower leg: No edema. Comments: Walking boot to LLE. Skin: General: Skin is warm and dry. Findings: Wound (See HPI) present. Neurological: Mental Status: She is alert and oriented to person, place, and time. Motor: Weakness present. Gait: Gait abnormal. Psychiatric: Attention and Perception: Attention normal. Mood and Affect: Mood and affect normal. Speech: Speech normal. Behavior: Behavior normal. Behavior is cooperative. WOUND ASSESSMENT Location: Left Posterior Heel Type: pressure injury Stage: Unstageable Exposed structure:None Progress: Stable- slight decrease in measurements Wound measurements (cm): 3.6 x 2.6 x UTD Full thickness: N/A Tunneling/undermining: none Wound tissue color: 100% firm, dry eschar Periwound tissue: dry, intact, blanchable erythema Drainage: none Drainage odor: None ANCILLARY DATA REVIEWED Managed by facility. Counseled on wound prognosis and plan of care, Counseled patient, family or facility staff on woundhealing process. Counseled on treatment options, and Written wound care instructions left in facility. Visit billing based on time: No, visit will not be billed on time? I spent a total of 20 minutes on the date of the service which included preparing to see the patient, [id number] patient care, completing clinical documentation, reviewing separately obtained history, performing a medically appropriate examination, counseling and educating the patient/family/caregiver, and communicating with other HCPs (not separately reported). Joint visit made with Ria Sandoval LPN Plan of Care discussed with facility nursing staff, patient, and referring provider. Wound care was performed during visit. All documentation from previous visit of 11/15/2023 was copied and pasted, documentation has been reviewed and edited as necessary for today's visit on 11/22/2023. SIGNATURE: Sharan Dominguez APRN.GONZALEZ POLLOCK PATIENT NAME: Chikis Tobar DATE: November 22, 2023 OFFICE #: [phone] PAGER/CELL: [phone] documented in this encounterThe [facility] System08-06-2024 History of Present illness Narrative* Dilcia Carl APRN.STABLE HELPER - 11/20/2023 1:28 PM EDT Images from the original note were not included. Connected Care Unit Progress Note Patient Name: Chikis Tobar Patient Facility: [facility] Admit Date 11/09/23 Level of Care: Skilled SNF Attending: Amelia Parisi D.O. Service Date: 11/20/2023 Code Status: Chief Complaint: Evaluation regarding hydrocephalus, meningitis ASSESSMENT AND PLAN ASSESSMENT/PLAN: 1. 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 denies SHANNON, dizziness or double/blurred vision at this time 8: No change in condition. Pt. participating in PT/OT, eating and drinking appropriately. No bowel or bladder issues. afebrile, non-toxic appearing. Pt.c/o BLE muscle cramps, Mag 1.9, muscle relaxer changed to methocarbamol 750mg po QID. Pt. has f/u with MD today to possibly hold anti-fungal due to muscle spasms that may be 2/2 anti-fungal. hemodynamically stable. No acute issues at this time. 11/19: No change in condition. Pt. participating in PT/OT as tolerated with BLE muscle spasms. Pt. states there is slight improvement with change in muscle relaxer and the muscle spasms. will attempt medrol dose pack therapy at this time and monitor blood glucose closely. eating and drinking appropriately. No bowel or bladder issues. Labs reviewed, hemodynamically stable. No acute issues at this time. - medrol dose pack - continue ASA 81mg po BID for DVT prophylaxis - continue methocarbamol 750mg po QID - continue posaconazole - continue to monitor CBC/CMP - continue to monitor Dilcia Carl Appointments for Next 60 Days Date Time Provider Location Dept Phone 11/22/2023 12:00 PM SHARAN DOMINGUEZ [facility] [phone] 11/27/2023 8:20 AM [facility] 11/27/2023 9:20 AM [facility]GE Hosp [phone] 11/29/2023 3:[address] MAIN CA Mn Ca [facility] [phone] 11/29/2023 4:00 PM CONSUELO MARLENE Mn S Bldg [phone] 12/21/2023 9:00 AM REGGIE BUTLER Mn S Bldg [phone] HPI: (Per discharge summary) 58-year-old female with PMHx signficant for T1DM cb/ DKA, urothelial carcinoma of the bladder s/p radical cystectomy and ileal conduit c/b SBO (Dec 2021), HTN, chronic sinusitis, asthma, persistent encephalopathy and hydrocephalus. 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 She was followed by ID at [facility] and was on posaconazole. She is s/p shunt externalization at [facility] (06/27/23) during abdominal surgery for SBO and eventual VPS explantation (07/10/23). She was o riginally scheduled for shunt reinternalization with Dr. Oconnor on 11/20/23. She fell due to leg spasms and presented to OSH ED and admitted on 10/07/23. Found to have L tibial fx s/p intramedullary nailDr. Darleen at [facility] (10/08/23). She was then transferred [place] [facility] [place]. She is s/p VPS reimplantation by Dr. Oconnor and Dr. Evans on 10/14. Intraoperative CSF cultures without growth. Plan to continue posaconazole at least through end of this year. She isto start asa bid on 10/24 for dvt ppx. Seen by WOCN for wounds as below - Coccyx : healed. -Left posterior heel: POA -Left anterior foot : Deep Tissue Pressure Injury, acquired While in the ARU, pt received physical therapy for range of motion, transfer training, endurance/ balance, fall prevention, and gait training with appropriate assistive devices, occupational therapy for activity of daily living/equipment/ functional transfer evaluation and training, and speech thera harry for language evaluation and speech re-education. Team conferences were held to monitor progress and tailor program to patients needs. Patient had appropriate pain management, bowel management, sleep management, GI and DVT prophylaxis. Pt was stable throughout ARU course without major medical comp lication. Pt participated in all therapies and although with significant gradual improvement, would benefit from continuing skilled therapies and nursing at SNF prior to returning home. 10/23 stop robaxin, add zanaflex 4mg at bedtime and 2mg tid prn 10/27 zanaflex scheduled qid 10/28 d/w IM get f/u head CT d/t unresolved spasticity with pain 10/30 Shunt adjusted by Neurosurg from to 7 11/04 add gabapentin 300mg at bedtime Interval HPI: Pt. is alert, calm and cooperative during ROS and physical exam. There are no concerns for bowel issues. ileal conduit without complications, appropriate output without sediment or hematuria. Pt. is eating and drinking fluids appropriately. walker boot in place, denies pain at this time. pt. denies SHANNON, dizziness or double/blurred vision at this time. All labs and vital signs were reviewed. Pt. is participating in PT/OT without complications. Per nursing staff there are no acute changes to be addressed at this time. 8/: No change in condition. Pt. participating in PT/OT, eating and drinking appropriately. No bowel or bladder issues. afebrile, non-toxic appearing. Pt.c/o BLE muscle cramps, Mag 1.9, muscle relaxer changed to methocarbamol 750mg po QID. Pt. has f/u with MD today to possibly hold anti-fungal due to muscle spasms that may be 2/2 anti-fungal. hemodynamically stable. No acute issues at this time. 8/6: No change in condition. Pt. participating in PT/OT as tolerated with BLE muscle spasms. Pt. states there is slight improvement with change in muscle relaxer and the muscle spasms. will attempt medrol dose pack therapy at this time and monitor blood glucose closely. eating and drinking appropriately. No bowel or bladder issues. Labs reviewed, hemodynamically stable. No acute issues at this time. PAST MEDICAL HISTORY 02/16/2021: Asthma 02/2021: Bladder cancer (HCC) Comment: urothelial carcinoma 04/13/2021: Diabetes mellitus type 1 (HCC) Comment: diagnosed at age 6 02/16/2021: HTN (hypertension) 02/16/2021: Neoplasm of bladder 02/16/2021: Obesity 02/16/2021: Palpitations SUBJECTIVE: Review of Systems Constitutional: Positive for activity change and fatigue. Negative for fever. Respiratory: Negative. Cardiovascular: Negative. Gastrointestinal: Negative. Musculoskeletal: Positive for arthralgias. Neurological: Positive for weakness. Psychiatric/Behavioral: Negative. No reports of falls/injuries, changes in cognition/behaviors, or any uncontrolled pain exacerbations. Medications: Medications listed in Epic during SNF admission may not be current. Refer to facility record. Patient records, current medications, most recent labs, family/social history (unchanged) Reviewed.Refer to facility records. OBJECTIVE: Labs/diagnostics: reviewed Physical Exam: Physical Exam Constitutional: General: She is not in acute distress. Appearance: She is not toxic-appearing. HENT: Mouth/Throat: Mouth: Mucous membranes are moist. Pharynx: Oropharynx is clear. Eyes: Conjunctiva/sclera: Conjunctivae normal. Cardiovascular: Rate and Rhythm: Normal rate. Pulses: Normal pulses. Heart sounds: Normal heart sounds. Pulmonary: Effort: Pulmonary effort is normal. Breath sounds: Normal breath sounds. Abdominal: General: Bowel sounds are normal. Palpations: Abdomen is soft. Musculoskeletal: Comments: left walker boot Skin: General: Skin is warm and dry. Capillary Refill: Capillary refill takes less than 2 seconds. Neurological: Mental Status: She is alert. Mental status is at baseline. Motor: Weakness present. Psychiatric: Mood and Affect: Mood normal. Behavior: Behavior normal. Some elements from the note on 11/16/23 have not changed and have been copied from that note. Any changes in condition have been addressed and charted accordingly. POC discussed with appropriate parties and nursing staff. Electronically signed by Dilcia Carl APRN.STABLE HELPER documented in this encounterThe [facility]08-05-2024 History of Present illness Narrative* Dilcia Carl APRN.MARIS - 11/19/2023 12:25 PM EDT PDMP website checked and validated. All prescriptions have been APPROPRIATELY filled. No suspiciousactivity was identified. 11/19/2023 by Dilcia Carl APRN.STABLE HELPER documented in this encounterThe [facility]health System08-02-2024 Instructions* Patient Instructions* Jamie Mccarty MD - 11/16/2023 4:35 PM EDT INSTRUCTIONS FOR CHIKIS AMADOU AND HER MEDICAL TEAM AT [facility]: Please STOP the posaconazole I will schedule her for a neurology consultation for the leg cramps Jamie Mccarty MD documented in this encounterThe [facility] System08-02-2024 Nurse Note* Chel Fu MA - 11/16/2023 4:01 PM EDT Pt can not stand [facility]-02-[facility] Nurse Note* Chel Fu MA - 11/16/2023 4:01 PM EDT Pt can not stand documented in this encounterThe [facility]health System08-02-2024 History of Present illness Narrative* Jamie Mccarty MD - 11/16/2023 3:44 PM EDT Images from the original note were not included. INFECTIOUS DISEASES OUTPATIENT FOLLOW-UP NOTE SERVICE DATE: November 16, 2023 Last visit:10/04/2023 INTERVAL HPI : HPI: 58 year old female with medical history of [...] performed and she was transferred to [facility]. She was found to have DKA. A CT head showed hydrocephalus with MRI on May 29 showing multiple enhancement in the anterior sabra, medulla, and in the spine at the level of C7-T3 and L1-S2. Multiple taps were performed and were unsuccessful. A GEOLOGICAL ENGINEERING TEACHER shunt was placed and patient underwent a [...] lobes (8 mm). LFTs 08/16 normal . GEOLOGICAL ENGINEERING TEACHER shunt was adjusted from 4 to 7 Posaconazole level 2.4 on 08/21/22 Developed a facial rash in September 2022, mainly the malar area, a few spots on the forehead. 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 She was seeing wound care at [facility] for her sacral area ulcer. Rx'd with [...] cytology. Continue surveillance imaging q 6 months. [place] remains in place. ID clinic 01/15/23, doing fairly well overall, tolerating posaconazole. Strength improving and ambulatory, using a cane PRN. No GEOLOGICAL ENGINEERING TEACHER shunt issues. Balance has improved but still needs to work on it. Area of persistent numbness in the upper thoracic region which has not changed much, along with some areas of numbness on the lateral thighs, which has been present all along. Facial rash better, being treated as rosacea by PCP. Glucose well controlled. Plan 1 year of antifungals and then reassess withimaging. ID clinic 03/19/23: Seemed to have reached a plateau with her neuro recovery, with stable balance problems and various areas of sensory loss. Neuro exam showed abnormal Romberg (unable to stand feet together with eyes OPEN), balance deficits, some decreased sensation upper back region (around T5) and patchy areas both anterolateral thighs. Ambulatory with a cane, improving wt, and overall motor strength. Had a near fall in prior week without direct head trauma, probably due in part to chronic balance problems. Also had bilateral shoulder pains and receiving PT. Last MRI brain 07/07/22 (postop) showed FLAIR hyperintensity of trigeminal nerves, facial, and vestibulocochlear, and glossopharyngeal and vagal nerves (no significant contrast enhancement of cranial nerves though). MRI of cord 07/07/22 showed extensive leptomeningeal enhancement throughout the entire spinal canal and extending intothe brainstem and basilar cisterns. Plan for MRI of brain and spine, neurosurgical FU to evaluate shunt settings after MRI. Offered Orthopedics consult for bilateral shoulder pain, presumed rotator cuff ID clinic 05/10/23: MRI brain and spine yesterday with significant improvement in the extensive leptomeningeal enhancement (see below) from the brain stem to the cauda equina. The FLAIR hyperintensityinvolving multiple cranial nerves has resolved. Still some areas of loculation in the prepontine area and in ventral thoracic area (images below), but diffuse lepto and some pachymeningeal enhancement throughout is better. There is a persistent intramedullary T2/STIR hyperintense signal in the thoracic cord T2-T3 to T7-T8. numbness around both the knee areas in particular but also the thighs. This is not painful and she can still feel in the thigh regions as well as around both knees but it is d efinitely less than other areas. Has the sensation that the knees feel puffy but says they are not really puffy There is also an area of partial numbness on the upper back around the area of the incision that is similar; she can feel everything when touched there but the sensation is less than other areas of the back. This matches up with the MRI of the T spine. Admitted to [facility] 06/24-07/13/2023 Presented to [facility] 06/24 with c/f possible SBO. 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 NSGY maintained the externalized shunt at the clavicle via an EVD and was the valve was adjusted from 7 to 8 to see if the patient would continue to remain shunt independent for a prolonged course. Following seven days of a clamped EVD, patient was deemed shunt independent and theVPS was removed by Dr. Figueroa on 07/09. -Urology, Dr. Chambers, placed and managed a TOD drain that was removed prior to discharge. Bilateral ureteral stents to be removed 07/26/23 08/30/23 neurosurgery visit: Over the past 2 weeks Chikis has seen worsening in her ambulation. She continues to use a rolator but feels much more unbalanced and is starting to shuffle. No additional neurologic complaints 09/04/23 telehealth visit: she has fallen a few times in this time period. She was concerned that she was unable to get herself up off the floor on her own. 09/20/23 neurology visit -At the end of July, she developed weakness in her BLE. When she goes to turn to stand up, her legs will involuntarily flex and the hip and knee and dorsiflex at the foot. This also happens when sheis laying flat and therapists will have to help her straighten her legs. She has no control over this. It does hurt when this happens in her knee area. This has slowly been getting worse since July. The legs are also weak, R>L, and the right leg will drag when she walks. -On exam, patient has spasticity and triple flexion in BLE in addition to weakness and hyperreflexia. Findings are concerning for worsening hydrocephalus, especially given that her CT head in July showed larger ventricles compared to prior MRI -Imaging ordered but not performed yet presents today 10/04/23 to ID clinic for follow-up 10/04/23: ID clinic-- ongoing spasms in LE with tensing x 1+ month. Worsening LE weakness and spasms, no new numbness. Spasms in legs waking her up from sleep. Frequency increasing from every 2-3 days, to daily every hour or so. Worsening vision also, in July vision OD 20/20, and now 20/40 OD, and weaker on the left. Exam with long tract signs with upgoing plantars bilaterally, increased tone in LE; stable sensory deficits. We felt her symptoms were atypical from hydrocephalus, especially givenlack of any headache. She did report that the painful spasms in both legs started after the GEOLOGICAL ENGINEERING TEACHER shunt was removed at [facility], so it seemed somehow related. The posaconazole level was therapeutic and thelast MRI of the brain and spinal cord showed significant improvement in the fungal infection. It seemed unlikely that her leg spasms were due to uncontrolled fungal infection. She did have some loosestools and we were considering electrolyte abnormalities as a cause of leg cramping. Plan was to continue posaconazole for another 6 months, repeat MRI of the cervical and thoracic spine in October 2023to help decide length of therapy of posaconazole. 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 She suffered a fall after an episode of leg spasms. Admitted to local hospital and dx'd with comminuted fracture of Left distal tibial bone. From there, she was transferred to [facility] She underwent intramedullary nail placement to the Left tibia on 10/08/2023. She also had a CT BRAIN WO CON on 10/08 with evidence of interval increased dilation of the ventricular systems suggestive communicating hydrocephalus with mild transependymal edema Transferred to [facility]. Seen by ID Dr Dominic Pablo for ID clearance for VPS. Dr Reagan saeed had no evidence of ongoing fungal infection. 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 (right occipital) 10/15/2023 (Dr Oconnor),Certas valve 6. CSF sent from OR 10/15/23 showed 0 TNC, RBC 14, pro 5, glucose 80. Cryptococcal antigen, fungal cultures negative to date. MRI C_T spine 10/18/23 showed unchanged loculated arachnoid collection along ventral lower cervical and upper thoracic spine, with cord displacement, no change from 05/09/23. Persistent abnormal intrameduallary cord signal immediately above and below displaced cord, down to T7, minimally improved. Stable LME and pachymeningeal intradural enhancement throughout the C-T and upper lumbar spine, no change. Postop changes T5-6 decompression. D/C'd to [facility] She was continued on posaconazole 300 mg/d. Seen by ID Dr Domingo on 10/26/23. Tolerating posaconazole, stable LFTs, continue same and FU with ID at [facility] Patient contacted me on MyChart on 10/30 that she was having ongoing leg spasms. She was on some newmedications but were not working. Very difficult to walk with the spasms. She was told that muscle spasms can happen after extended use of posaconazole. On 11/01 I let her know that it was reasonable to stop the posaconazole for 2 weeks and see if her symptoms would improve. Plan was to see her in clinic today to assess if there was any improvement off posaconazole. Per [facility] notes (last was earlier today), she was stable, participating in PT/OT, eating and drinking appropriately. No bowel or bladder issues. afebrile, non-toxic appearing. Pt.c/o BLE muscle cramps, Mag 1.9, muscle relaxer changed to methocarbamol 750mg po QID. Currently: She has continued on the posaconazole (ie did not stop the medication). Feels the same, has ongoingLE painful spasms where both legs would flex involuntarily at the knees in a spasm. On Robaxin, tried gabapentin (did not help much). At night the spasms are the worst. Starts in her foot and toes, then the spasm goes up her leg, and legs end up flexed at the knee so that her feet are back behind her. Thighs get so tight that you can't pry them apart. During the day, it is better but still gets severe episodes, such as during PT when she is at the parallel bar the legs curl up in a spasm, the feet go beneath her and she cannot stand up. In the last few days, she has been able to use her upperbody to get some weight onto her spasming feet and straighten them up. The only time she was able to stand up on her feet was the day after the GEOLOGICAL ENGINEERING TEACHER shunt was reimplanted. The next day, therapy came and spasms started again. Some have theorized that the spasms were controlled by the anesthesia in the OR the day before. Then went to [facility], and was able to take a few steps with the parallel bars but nothing like at [facility] on POD [facility]. Plan was to try a ketty system to pull her along when walking, but never did it. No SHANNON. Shunt 6--> 7. CTH done at rehab after the MRI on 10/18/23; told there was too much fluid being drained and adjusted to 7 (which was the setting of the previous shunt before it was removed at [facility]) Still has decreased sensation in both legs. Can still feel things in feet and legs but feels weird.Can feel the ground Wearing a boot on the LLE. Within two days of the surgery on the leg, developed a deep bruise on the heel. Had necrotic tissue on heel and areas on top of foot where skin had rubbed off and raw. Saysthe boot was never inflated, and caused the skin breakdown. Seen by wound care yesterday and said much better, skin improving, heel necrosis is more scabs. Sees Ortho and Wound Care. We discussed issues regarding her discharge from rehab to another facility. Happened all of a sudden where she was just told she would be staying to see how she tolerated the gabapentin. Then found all her things were packed. Also c/o transporter going through her backpack. Had missing items and has been on the phone multiple times at rehab, still has not had this resolved. Situation now is not good; was getting therapy 3 hours/day at the first facility and now < 1 hour. Feels she could get more therapy as an outpatient with home PT. Frustrated by sequence of events, and inability to walk Bowels moving better; having formed BMs for the first time since surgery Urine-- doing OK. When at rehab, one day noted small pieces of black thread in the urine. Sent picture to her urologist who thought they could be sutures. Thinking this could be dissolvable sutures they used on the ureter during surgery 06/2023 and now they are passing through the stoma. Only the one day Frustrated by having 3 surgeries which she thinks could have been avoided MEDICATIONS: Current Outpatient Medications Medication Sig amLODIPine (NORVASC) 2.5 mg tablet Take by mouth once daily. dextrose 40 % gel Take 15 g by mouth as needed. insulin aspart U-100 (NOVOLOG) 100 unit/mL Use via insulin pump Max daily dose 100 units, DX: E10.65 polyethylene glycol 3350 17 gram packet Take 1 Packet by mouth once daily as needed. Dissolve dose in 4 - 8 ounces of liquid and take as directed. acetaminophen (TYLENOL) 325 mg tablet 2 tablets by ORAL/FEEDING TUBE route every 6 hours as needed for pain. aspirin, enteric coated (ADULT LOW DOSE ASPIRIN) 81 mg EC tablet Start ASA 81 mg BID on 10/24 Patient should start on October 25, 2023. lisinopril (ZESTRIL) 20 mg tablet 1 tablet by ORAL/FEEDING TUBE route once daily. metoprolol succinate ER (TOPROL XL) 100 mg Take 1 tablet by mouth every 12 hours at 6 am and [address] (NOXAFIL) 100 mg tablet Take 3 tablets by mouth once daily. senna-docusate (SENNA-S) 8.6-50 mg per tablet 1 tablet by ORAL/FEEDING TUBE route two times a day. methocarbamol (ROBAXIN) 500 mg tablet 1 tablet by ORAL/FEEDING TUBE route four times a day as needed. No current facility-administered medications for this visit. PHYSICAL EXAM BP 123/55 Pulse 79 Temp 36.7 C (98.1 F) (Temporal) Resp 16 SpO2 100% SKIN: no rosacea H: right occipital GEOLOGICAL ENGINEERING TEACHER shunt palpable along its track and nontender. Small heaped up scar, benign EYES: PERRL EOMI no scleral icterus, no conjunctivitis ENT: no oral lesions NECK: no meningismus RESPIRATORY: symmetrical chest expansion and respiratory effort, clear to auscultation CARDIOVASCULAR: S1, S2, no murmurs, no gallops, no rubs, no edema ABDOMINAL: soft, non-distended, non-tender. Ileal conduit stoma in place, pink and no [arastomal hernia [place] with clear urine MUSCULOSKELETAL: no joint effusions [...] BICEPS TRICEPS DELTS Wrist Ext Wrist Flex Payment Rep R 5/5 5/5 5/5 5/5 5/5 5/5 L 5/5 5/5 5/5 5/5 5/5 5/5 LE Hip Flex Knee Flex Knee Extend Plantarflex Dorsiflex EHL R 5/5 5/5 5/5 5/5 5/5 5/5 L 5/5 5/5 5/5 not tested not tested not tested Left LE in brace device. Knee flexion about 45 degrees. Prominent surgical scar left tibia, although healed Pronator drift: no pronator drift bilaterally Sensory: light touch: decreased in high thoracic area on back (but able to perceive LT) Lateral thighs also with decreased LT (but able to correctly perceive) Reflexes: RIGHT LEFT Brachioradialis 2+ 2+ Biceps 2+ 2+ Triceps 2+ 2+ Knee 3+ 3+ Achilles 2+ not done Long Tract Signs: Babinski upgoing bilaterally Muscle tone: increased in LE No fasciculations or tremors noted. Cerebellar: Finger nose finger: normal LABORATORIES Latest Ref Rn 11/05/2023 WBC 3.70 - 11.00 k/uL 4.86 RBC 3.90 - 5.20 m/uL 4.06 Hemoglobin 11.5 - 15.5 g/dL 11.4 (L) Hematocrit 36.0 - 46.0 % 36.2 MCV 80.0 - 100.0 fL 89.2 MCH 26.0 - 34.0 pg 28.1 MCHC 30.5 - 36.0 g/dL 31.5 RDW-CV 11.5 - 15.0 % 16.9 (H) Platelet Count 150 - 400 k/uL 359 MPV 9.0 - 12.7 fL 9.4 Neut% % 58.3 Abs Neut (ANC) 1.45 - 7.50 k/uL 2.83 Lymph% % 25.9 Abs Lymph 1.00 - 4.00 k/uL 1.26 Tama% % 9.9 Abs Tama <0.87 k/uL 0.48 Eosin% % 4.7 Abs Eosin <0.46 k/uL 0.23 Baso% % 1.0 Abs Baso <0.11 k/uL 0.05 Immature Gran % % 0.2 IMMATURE GRANS (ABS) <0.10 k/uL <0.03 NRBC /100 WBC 0.0 Absolute nRBC <0.01 k/uL <0.01 DTYPE Auto Protein, Total 6.3 - 8.0 g/dL 6.3 Albumin 3.9 - 4.9 g/dL 3.8 (L) Calcium 8.5 - 10.2 mg/dL 9.2 Bilirubin, Total 0.2 - 1.3 mg/dL 0.3 Alkaline Phosphatase 34 - 123 U/L 161 (H) AST 13 - 35 U/L 16 ALT 7 - 38 U/L 10 Glucose 74 - 99 mg/dL 94 BUN 7 - 21 mg/dL 19 Creatinine 0.58 - 0.96 mg/dL 0.62 Sodium 136 - 144 mmol/L 139 Potassium 3.7 - 5.1 mmol/L 4.3 Chloride 98 - 107 mmol/L 102 CO2 22 - 30 mmol/L 29 Anion Gap 8 - 15 mmol/L 8 eGFR >=60 mL/min/1.73m 104 Magnesium 1.7 - 2.3 mg/dL 2.3 Phosphorus 2.7 - 4.8 mg/dL 3.8 CRP <0.9 mg/dL <0.3 [facility] Reference Range & Units 06/28/22 14:58 07/02/22 12:42 10/15/23 10:59 CSF Tube Nbr Sterile Container Sterile Container Sterile Container Color, CSF Colorless Colorless Colorless Colorless Supernatant Color, CSF Colorless Not Indicated Not Indicated Not Indicated Clarity, CSF Clear Clear Clear Clear Supernatant Clarity, CSF Clear Not Indicated Not Indicated Not Indicated RBC, CSF 0 - 5 cells/uL 21 (H) 24 (H) 14 (H) Total Nucleated Cells, CSF 0 - 5 cells/uL 3 1 0 DIF TTL, CSF cells counted 100 100 7 Neut%, CSF 0 - 3 % 14 (H) 14 (H) Lymph%, CSF 50 - 90 % 98 (H) 80 71 Tama%, CSF 10 - 50 % 2 (L) 6 (L) Macro%, CSF <1 % 14 (H) Protein, CSF 15 - 45 mg/dL 36 5 (L) Glucose, CSF 40 - 70 mg/dL 106 (H) 58 80 (H) (H): Data is abnormally high (L): Data is abnormally low MICROBIOLOGY: CSF 10/15/23: Gram stain negative, routine culture negative x 5 days Fungal culture negative, crypto antigen negative Nasal staph 10/10 neg 07/19/22 COVID PCR neg 07/08/22 CSF cryptococcal antigen negative, fungal culture negative 07/02 CSF culture 07/02 NG [place] fungal PCR PCR from biopsy tissue both negative ([facility]) 06/28 CSF (labelled lumbar puncture but is from EVD): MNGS negative 06/27 CSF (labelled lumbar puncture but is from EVD): No growth, Crypto antigen negative 06/26 OR cultures Dural/subdural itradural thoracic lesion Tissue: gram stain negative. NGTD Wound culture: gram stain negative. NGTD AFB smear no organsims. Fungal: smear: no fungus seen [place] bacterial, fungal and AFB PCRs: negative (entire [...] on the AFB or gram stain sections. RADIOLOGY MRI C-T spine 10/18/23: Unchanged loculated arachnoid collection along the ventral lower cervical and upper thoracic spine with posterior cervicothoracic cord displacement, and not significantly changed from 05/09/2023. Persistent abnormal intramedullary cord signal abnormality immediately above and more prominently below the dorsally displaced cord extending to the mid T7 level, minimally improved from 05/09/2023, as detailed. Grossly stable diffuse abnormal leptomeningeal and scattered nodular pachymeningeal intradural enhancement throughout the cervical, thoracic, and upper lumbar spine, not significantly changed in appearance from 05/09/2023 although improved when compared with more remote studies. No new or progressive pathologic enhancement. Stable postoperative changes of T5-T6 dorsal decompression. Multilevel cervicothoracic spondylosis without high-grade spinal canal or neuroforaminal stenosis. Cervical Anatomic Variant: None. Assume 7 cervical vertebrae with counting from the craniocervical junction. Anatomic Thoracic/Lumbar Variant: None. L4-5 is considered the level of the iliac crest and assume there are 5 lumbar-type vertebrae. MRI brain, C-T-L spine 05/09/23: Interval decreased size of the peripherally enhancing collection in the interpeduncular, prepontine and cerebellopontine angle cisterns compared to the prior MRI. 05/09/23: T1 fl3d ax 18, 64 MRI 07/07/22, T1 fl3d, 41, 116 Near complete resolution of leptomeningeal enhancement involving the prepontine cistern and cerebellopontine angle cisterns, along the surface of the sabra and medulla compared to prior exam. No new or progressive pathologic enhancement. 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 Ventricular interstitial edema compared to the prior exam. Right frontal approach ventriculostomy shunt catheter is present. Interval improvement in diffuse abnormal leptomeningeal and pachymeningeal intradural enhancement throughout the cervical, thoracic and lumbar spine compared to the prior MRI 07/07/2022 with residual decreased patchy enhancement in the thoracic and lumbar spine. Patchy residual enhancement along the cauda equina nerve roots and ventral thecal sac in the lumbar spine, improved. Persistent abnormal intramedullary T2/STIR hyperintense signal in the thoracic cord with slight increased caudal extension from T2-T3 to T7-T8 compared to prior exam. Persistent deformity and expansion of the cord at these levels. Unchanged loculated arachnoid collection along the ventral lower cervical and upper thoracic spine with displacement of the cervical thoracic cord compared to prior exam. 05/09/23 SAG T1 ASIF, 7, 8 T2 tirm sag bone 8,8 07/07/22 SAG T1 TSSE 43, 8 Postoperative findings of dorsal decompression at T5-T6 with involution of the previously seen postoperative collection in the laminectomy defect and resolution of mass effect. Unchanged chronic compression fracture of T5 without bony retropulsion or canal stenosis. No significant canal or foraminal stenoses in the cervical, thoracic or lumbar spine. Cervical Anatomic Variant: None. Assume 7 cervical vertebrae with counting from the craniocervical junction. Anatomic Thoracic/Lumbar Variant: None. L4-5 is considered the level of the iliac crest and assume there are 5 lumbar-type vertebrae. ASSESSMENT: 57 year old woman with history [...] in DKA - 05/29/22 MRI brain from [facility] with leptomeningeal enhancement, communicating hydrocephalus - 06/07/22 MRI spine with diffuse LMD throughout spinal cord and cauda equina with loculated CSF in anterior thecal sac at C7-T3 with posterior displacement of cord and cord compression. T4-9 intramedullary hyperintensity suggesting cord edema due to compression superiorly - Course complicated by unsuccessful LP attempts at [facility] then transferred to [facility] - s/p cisternal tap [...] with fungal hyphae confirmed on multiple sections. [place] PCR and cultures all negative, including the tissue block in its entirety sent for universal fungal PCR and negative - CSF 06/28/22 negative on Next Gen sequencing - posaconazole started 06/29/22 - s/p GEOLOGICAL ENGINEERING TEACHER shunt on 07/10.and improving MS since then. - small subdural hygromas over frontal convexities on CT 08/16/22, shunt settings adjusted - facial rash in September 2022, mainly the malar area, a few spots on the forehead. Dx'd with rosacea by PCP and started on metronidazole gel, improved - sacral area ulcer, saw wound care at [facility]. Rx'd with medical honey gel and silicone [...] patchy sensory loss in thighs - near falls - MRI 05/10/23 with significant improvement in the extensive leptomeningeal enhancement from the brain stem to the cauda equina. The FLAIR hyperintensity involving multiple cranial nerves had resolved. Still some areas of loculation in the prepontine area and in ventral thoracic area, but diffuse lepto and some pachymeningeal enhancement throughout was better. 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 NSGY maintained the externalized shuntat the clavicle via an EVD and was the valve was adjusted from 7 to 8 to see if the patient would continue to remain shunt independent for a prolonged course. Following seven days of a clamped EVD, patient was deemed shunt independent and the VPS was removed by Dr. Figueroa on 07/09. Had ureteral stents, later removed - new onset bilateral LE cramps and spasms, starting 1 week postop removal of VPS. Cramps starting from toes and feet and ascending to thighs and groin, uncontrolled dorsiflexion in feet, knee and hip flexion. Every 2-3 days initially then multiple times daily - CT head 07/2023 with increased ventricles Neurology eval 09/20/23: spasticity and triple flexion in BLE in addition to weakness and hyperreflexia. Findings are concerning for worsening hydrocephalus especially with CTH showing increased ventricles - suffered a fall 09/2023 after an episode of leg spasms. Admitted to local hospital and dx'd with comminuted fracture of Left distal tibial bone. From there, she was transferred to [facility] She underwent intramedullary nail placement to the Left tibia on 10/08/2023. She also had a CT BRAIN WO CON on 10/08 with evidence of interval increased dilation of the ventricular systems suggestive communicating hydrocephalus with mild transependymal edema Transferred to [facility]. Seen by ID Dr Dominic Pablo for ID clearance for VPS. Dr Reagan saeed had no evidence of ongoing fungal infection. 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 (right occipital) 10/15/2023 (Dr Oconnor),Certas valve 6. CSF sent from OR 10/15/23 showed 0 TNC, RBC 14, pro 5, glucose 80. Cryptococcal antigen, fungal cultures negative to date. MRI C-T spine 10/18/23 showed unchanged loculated arachnoid collection along ventral lower cervical and upper thoracic spine, with cord displacement, no change from 05/09/23. Persistent abnormal intrameduallary cord signal immediately above and below displaced cord, down to T7, minimally improved. Stable LME and pachymeningeal intradural enhancement throughout the C-T and upper lumbar spine, no change. Postop changes T5-6 decompression. D/C'd to [facility] She was continued on posaconazole 300 mg/d. Seen by ID Dr Domingo on 10/26/23. Tolerating posaconazole, stable LFTs, continue same and FU with ID at [facility]. Ongoing leg spasms, gabapentin and Robaxin not working. Labs negative including Mg, Phos, Ca Etiology of the ongoing bilateral leg spasms unclear. 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 Last MRI 10/18/23 shows no change in the 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 ? if bilateral leg spasms are secondary to posaconazole. Muscle cramps have been reported, but the pattern of her intermittent, involuntary LE movements is unusual-- dorsiflexion at the feet, then painful triple flexion (hip, knee, ankle). Has long tract signs but no significant worsening on exam. She had benign CSF recently with no pleocytosis. Fungal CSF culture again negative, with 0 TNCs in CSF There is still persistent abnormal intrameduallary cord signal immediately above and below displaced cord, down to T7 but this is chronic for many months and unchanged. Similarly she has leptomeningeal enhancement and some intradural enhancement throughout the C-T and upper lumbar spine, but this also is now chronic and unchanged on recent MRI. CRP 0.5 on 11/01/23 Reasonably safe to trial her off posaconazole PLAN: - D/C posaconazole and reassess in a few weeks - recheck labs at that time (CRP, WSR, Fungitell) - if no better, may refer to [facility] for spasticity - isavuconazole is an option also (given some degree of contrast enhancement still) Jamie Mccarty MD November 16, 2023 I spent a total of 65 minutes on the date of the service which included preparing to see the patient, review of multiple MRI scans, [id number] patient care, completing clinical documentation, obtaining and/or reviewing separately obtained history, performing a medically appropriate examination, counseling and educating the patient/family/caregiver, ordering medications, tests, or procedures, independently interpreting results (not separately reported), communicating results to the patient/family/caregiver, and care coordination (not separately reported) documented in this encounterThe [facility] System08-02-2024 History of Present illness Narrative* Dilcia Carl APRN.[facility] - 11/16/2023 11:03 AM EDT Images from the original note were not included. Connected Care Unit Progress Note Patient Name: Chikis Tobar Patient Facility: [facility] Admit Date 11/09/23 Level of Care: Skilled SNF Attending: Amelia Parisi D.O. Service Date: 11/16/2023 Code Status: Chief Complaint: Evaluation regarding hydrocephalus, meningitis ASSESSMENT AND PLAN ASSESSMENT/PLAN: 1. 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 denies SHANNON, dizziness or double/blurred vision at this time 11/15: No change in condition. Pt. participating in PT/OT, eating and drinking appropriately. No bowel or bladder issues. afebrile, non-toxic appearing. Pt.c/o BLE muscle cramps, Mag 1.9, muscle relaxer changed to methocarbamol 750mg po QID. Pt. has f/u with MD today to possibly hold anti-fungal due to muscle spasms that may be 2/2 anti-fungal. hemodynamically stable. No acute issues at this time. - continue ASA 81mg po BID for DVT prophylaxis - continue methocarbamol 750mg po QID - continue posaconazole - continue to monitor CBC/CMP - continue to monitor Dilcia Carl Appointments for Next 60 Days Date Time Provider Location Dept Phone 11/16/2023 3:30 PM JAMIE MCCARTY [facility] [phone] 11/22/2023 1:[address] MAIN F30 (I-STAT) [facility] [phone] 11/27/2023 8:20 AM XR [facility] 11/27/2023 9:20 AM AASHISH MONGE [facility] [phone] 11/29/2023 3:[address] MAIN CA [facility] [phone] 11/29/2023 4:00 PM MARLENE CORDERO [facility] [phone] 12/21/2023 9:00 AM REGGIE BUTLER [facility] [phone] HPI: (Per discharge summary) 58-year-old female with PMHx signficant for T1DM cb/ DKA, urothelial carcinoma of the bladder s/p radical cystectomy and ileal conduit c/b SBO (Dec 2021), HTN, chronic sinusitis, asthma, persistent encephalopathy and hydrocephalus. 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 She was followed by ID at [facility] and was on posaconazole. She is s/p shunt externalization at [facility] (06/27/23) during abdominal surgery for SBO and eventual VPS explantation (07/10/23). She was o riginally scheduled for shunt reinternalization with Dr. Oconnor on 11/20/23. She fell due to leg spasms and presented to OSH ED and admitted on 10/07/23. Found to have L tibial fx s/p intramedullary nailDr. Randallri at [facility] (10/08[facility]23). She was then [place] [facility] [place]. She is s/p VPS reimplantation by Dr. Oconnor and Dr. Evans on 10/14. Intraoperative CSF cultures without growth. Plan to continue posaconazole at least through end of this year. She isto start asa bid on 10/24 for dvt ppx. Seen by WOCN for wounds as below - Coccyx : healed. -Left posterior heel: POA -Left anterior foot : Deep Tissue Pressure Injury, acquired While in the ARU, pt received physical therapy for range of motion, transfer training, endurance/ balance, fall prevention, and gait training with appropriate assistive devices, occupational therapy for activity of daily living/equipment/ functional transfer evaluation and training, and speech thera py for language evaluation and speech re-education. Team conferences were held to monitor progress and tailor program to patients needs. Patient had appropriate pain management, bowel management, sleep management, GI and DVT prophylaxis. Pt was stable throughout ARU course without major medical comp lication. Pt participated in all therapies and although with significant gradual improvement, would benefit from continuing skilled therapies and nursing at SNF prior to returning home. 10/23 stop robaxin, add zanaflex 4mg at bedtime and 2mg tid prn 10/27 zanaflex scheduled qid 10/28 d/w IM get f/u head CT d/t unresolved spasticity with pain 10/30 Shunt adjusted by Neurosurg from to 7 11/04 add gabapentin 300mg at bedtime Interval HPI: Pt. is alert, calm and cooperative during ROS and physical exam. There are no concerns for bowel issues. ileal conduit without complications, appropriate output without sediment or hematuria. Pt. is eating and drinking fluids appropriately. walker boot in place, denies pain at this time. pt. denies SHANNON, dizziness or double/blurred vision at this time. All labs and vital signs were reviewed. Pt. is participating in PT/OT without complications. Per nursing staff there are no acute changes to be addressed at this time. 11/15: No change in condition. Pt. participating in PT/OT, eating and drinking appropriately. No bowel or bladder issues. afebrile, non-toxic appearing. Pt.c/o BLE muscle cramps, Mag 1.9, muscle relaxer changed to methocarbamol 750mg po QID. Pt. has f/u with MD today to possibly hold anti-fungal due to muscle spasms that may be 2/2 anti-fungal. hemodynamically stable. No acute issues at this time. PAST MEDICAL HISTORY 02/16/2021: Asthma 02/2021: Bladder cancer (HCC) Comment: urothelial carcinoma 04/13/2021: Diabetes mellitus type 1 (HCC) Comment: diagnosed at age 6 02/16/2021: HTN (hypertension) 02/16/2021: Neoplasm of bladder 02/16/2021: Obesity 02/16/2021: Palpitations SUBJECTIVE: Review of Systems Constitutional: Positive for activity change and fatigue. Negative for fever. Respiratory: Negative. Cardiovascular: Negative. Gastrointestinal: Negative. Musculoskeletal: Positive for arthralgias. Neurological: Positive for weakness. Psychiatric/Behavioral: Negative. No reports of falls/injuries, changes in cognition/behaviors, or any uncontrolled pain exacerbations. Medications: Medications listed in Epic during SNF admission may not be current. Refer to facility record. Patient records, current medications, most recent labs, family/social history (unchanged) Reviewed.Refer to facility records. OBJECTIVE: Labs/diagnostics: reviewed Physical Exam: Physical Exam Constitutional: General: She is not in acute distress. Appearance: She is not toxic-appearing. HENT: Mouth/Throat: Mouth: Mucous membranes are moist. Pharynx: Oropharynx is clear. Eyes: Conjunctiva/sclera: Conjunctivae normal. Cardiovascular: Rate and Rhythm: Normal rate. Pulses: Normal pulses. Heart sounds: Normal heart sounds. Pulmonary: Effort: Pulmonary effort is normal. Breath sounds: Normal breath sounds. Abdominal: General: Bowel sounds are normal. Palpations: Abdomen is soft. Musculoskeletal: Comments: left walker boot Skin: General: Skin is warm and dry. Capillary Refill: Capillary refill takes less than 2 seconds. Neurological: Mental Status: She is alert. Mental status is at baseline. Motor: Weakness present. Psychiatric: Mood and Affect: Mood normal. Behavior: Behavior normal. Some elements from the note on 11/14/23 have not changed and have been copied from that note. Any changes in condition have been addressed and charted accordingly. POC discussed with appropriate parties and nursing staff. Electronically signed by Dilcia Carl APRN.[facility] documented in this encounterThe [facility] System08-01-2024 History of Present illness Narrative* Sharan Dominguez APRN.[facility] - 11/15/2023 6:31 AM EDT Images from the original note were not included. [facility] PROVIDER PROGRAM - FOLLOW UP VISIT PATIENT NAME: Chikis Tobar SERVICE DATE: 11/15/[address] OF SERVICE FOR THIS VISIT[facility] (POS [facility] Facility Name: [facility] Level of Care: Skilled Asked to see patient at the request of and in collaboration with Dr. Parisi for my opinion regardingpressure injury of the left heel. Requested to see patient today for wound assessment and treatment evaluation CHIEF COMPLAINT: Follow up wound care evaluation of deep tissue pressure injury of the left heel. INTERVAL HISTORY Information provided by: Chart review and Patient 58 year old y/o female who presents with a wound Location: Left posterior heel Onset: POA Aggravating factors: Diabetes mellitus, Mechanical devices related, Positioning, and Pressure Wound etiology: Pressure Associated pain with wound: Yes Relieving factors for wound pain: Positioning Treatments: Current: Betadine, ABD, kerlix Remainder unchanged Future Appointments Date Time Provider Department Center 11/15/2023 2:30 PM Sharan Dominguez APRN.[facility] 11/16/2023 2:30 PM Jamie Mccarty MD [facility] 11/22/2023 1:[address] MAIN F30 (I-STAT) [facility] 11/27/2023 8:20 AM XR [facility] 11/27/2023 9:20 AM Aashish Monge PA-C [facility] 11/29/2023 3:[address] MAIN CA RCTCAL [facility] 11/29/2023 4:00 PM Marlene Cordero PA-C N[facility]US[facility] 12/21/2023 9:00 AM Reggie Butler MD [facility] 02/06/2024 11:00 AM Ruddy Gupta MD ENDOAV Rej 09/16/2024 10:45 AM LAB MAIN Q2-1 LBQ2-1 [facility] 09/16/2024 11:[address] 2 MAIN QB (I-STAT) RCTMN [facility] IMPRESSION/RECOMMENDATIONS The patient's age, altered mobility and other co morbidities are likely to impact wound and skin integrity Additional impediments to healing Diabetic: Yes Anticoagulation: Aspirin Antibiotics: No Steroids: No (L89.620) Pressure injury of left heel, unstageable (HCC) (primary encounter diagnosis) Comment: Previously noted deep tissue pressure injury to the posterior aspect of the left heel, POAto SNF, has evolved into unstageable pressure injury. Wound with decreased measurements is now comprised of dry, firm eschar. Periwound is now dry and intact with some blanchable erythema. No drainage noted at this time. Will plan to continue betadine to the area. Remains somewhat tender on exam. HPI: Patient s/p left tibia fracture with use of walking boot. Plan: -Monitor for any s/s of infection- notify STABLE HELPER/MD of any pertinent findings -Wound care orders as follows: Wound Care Order: - Cleanse wound and periwound skin with normal saline and gauze, gently pat dry. - Apply betadine liberally to wound and periwound - Cover with ABD and kerlix - Change dressing daily and PRN. (R53.67) Physical deconditioning Comment: Patient requires assistance with ADL's and mobility d/t recent left tibia fracture, hydrocephalus. Working with PT and OT. WBAT to LLE. Walking boot in place to LLE. Plan: - Turn and reposition frequently - Frequent weight shifts when seated - Nutritional support as appropriate FOLLOW UP PLAN Weekly as needed SUBJECTIVE REVIEW: Information provided by: Patient and Facility nurse Review of Systems Constitutional: Positive for activity change (Decreased). Negative for chills, diaphoresis and fever. HENT: Negative. Respiratory: Negative. Cardiovascular: Negative. Gastrointestinal: Negative. Genitourinary: + urostomy Musculoskeletal: Positive for arthralgias and gait problem. Skin: Positive for wound. Neurological: Positive for weakness (Generalized). Psychiatric/Behavioral: Negative Nutrition DIET: NCS (No Concentrated Sweets) diet, Regular texture, Regular/Thin consistency SUPPLEMENTS: Anuel APPETITE: fair MEDICATION REVIEW Medications listed in Epic during SNF admission may not be current. Refer to facility record Medications Reviewed per facility list done: Yes Allergies reviewed per facility list Prior chart notes reviewed SOCIAL HISTORY Tobacco Use Past: No Current: No OBJECTIVE Physical Exam Vitals and nursing note reviewed. Constitutional: General: She is not in acute distress. Appearance: She is well-groomed and normal weight. She is not ill-appearing or toxic-appearing. Comments: Pleasant middle aged female sitting upright in wheelchair, calm and cooperative. HENT: Head: Normocephalic and atraumatic. Nose: No congestion. Mouth/Throat: Mouth: Mucous membranes are moist. Pharynx: Oropharynx is clear. Cardiovascular: Rate and Rhythm: Normal rate. Pulses: Normal pulses. Pulmonary: Effort: Pulmonary effort is normal. No respiratory distress. Abdominal: General: Abdomen is flat. There is no distension. Palpations: Abdomen is soft. Musculoskeletal: General: Tenderness (LLE) and signs of injury present. Right lower leg: No edema. Left lower leg: No edema. Comments: Walking boot to LLE. Skin: General: Skin is warm and dry. Findings: Wound (See HPI) present. Neurological: Mental Status: She is alert and oriented to person, place, and time. Motor: Weakness present. Gait: Gait abnormal. Psychiatric: Attention and Perception: Attention normal. Mood and Affect: Mood and affect normal. Speech: Speech normal. Behavior: Behavior normal. Behavior is cooperative. WOUND ASSESSMENT Location: Left Posterior Heel Type: pressure injury Stage: Unstageable Exposed structure:None Progress: Evolving- stable Wound measurements (cm): 3.8 x 2.7 x UTD Full thickness: N/A Tunneling/undermining: none Wound tissue color: 100% firm, dry eschar Periwound tissue: dry, intact, blanchable erythema Drainage: none Drainage odor: None ANCILLARY DATA REVIEWED Managed by facility. Counseled on wound prognosis and plan of care, Counseled patient, family or facility staff on woundhealing process. Counseled on treatment options, and Written wound care instructions left in facility. Visit billing based on time: No, visit will not be billed on time? I spent a total of 20 minutes on the date of the service which included preparing to see the patient, [id number] patient care, completing clinical documentation, reviewing separately obtained history, performing a medically appropriate examination, counseling and educating the patient/family/caregiver, and communicating with other HCPs (not separately reported). Joint visit made with Daniel Sandoval LPN Plan of Care discussed with facility nursing staff, patient, and referring provider. Wound care was performed during visit. All documentation from previous visit of 11/08/2023 was copied and pasted, documentation has been reviewed and edited as necessary for today's visit on 11/15/2023. SIGNATURE: Sharan Dominguez APRN.[facility] PATIENT NAME: Chikis Tobar DATE: November 15, 2023 OFFICE #: [id number] PAGER/CELL: [phone] documented in this encounterThe [facility]health System07-31-2024 History of Present illness Narrative* Dilcia Carl APRN.[facility] - 11/14/2023 3:39 PM EDT Images from the original note were not included. Connected Care Unit Progress Note Patient Name: Chikis Tobar Patient Facility: [facility] Admit Date 11/09/23 Level of Care: Skilled SNF Attending: Amelia Parisi D.O. Service Date: 11/14/2023 Code Status: Chief Complaint: Evaluation regarding hydrocephalus, meningitis, fracture, DM and CA ASSESSMENT AND PLAN ASSESSMENT/PLAN: 1. 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 denies SHANNON, dizziness or double/blurred vision at this time - continue ASA 81mg po BID for DVT prophylaxis - continue posaconazole - continue to monitor CBC/CMP - continue to monitor 3. Tibia/fibula fracture, left, closed, initial encounter - ICD9: 823.82, ICD10: S82.202A, S82.402A s/p intramedullary nail 10/08/23 without complications 11/13: walker boot in place, denies pain at this time, participating in pt/ot as tolerated - continue pt/ot - continue pain control 4. Diabetes mellitus type 1, controlled, without complications (HCC) - ICD9: 250.01, ICD10: E10.9 Controlled at this time - continue current regimen - continue to monitor BS 5. Malignant neoplasm of urinary bladder, unspecified site (HCC) - ICD9: 188.9, ICD10: C67.9 urothelial carcinoma of the bladder s/p radical cystectomy and ileal conduit 11/13: ileal conduit without complications, appropriate output without sediment or hematuria - continue to monitor output - continue to monitor Dilcia Carl Appointments for Next 60 Days Date Time Provider Location Dept Phone 11/15/2023 2:30 PM SHARAN DOMINGUEZ [facility] [phone] 11/16/2023 2:30 PM JAMIE MCCARTY [facility] [phone] 11/22/2023 1:[address] MAIN F30 (I-STAT) [facility] [phone] 11/27/2023 8:20 AM XR [facility] 11/27/2023 9:20 AM AASHISH MONGE [facility] [phone] 11/29/2023 3:[address] MAIN CA [facility] [phone] 11/29/2023 4:00 PM MARLENE CORDERO [facility] [phone] 12/21/2023 9:00 AM REGGIE BUTLER [facility] [phone] HPI: (Per discharge summary) 58-year-old female with PMHx signficant for T1DM cb/ DKA, urothelial carcinoma of the bladder s/p radical cystectomy and ileal conduit c/b SBO (Dec 2021), HTN, chronic sinusitis, asthma, persistent encephalopathy and hydrocephalus. 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 She was followed by ID at [facility] and was on posaconazole. She is s/p shunt externalization at [facility] (06/27/23) during abdominal surgery for SBO and eventual VPS explantation (07/10/23). She was o riginally scheduled for shunt reinternalization with Dr. Oconnor on 11/20/23. She fell due to leg spasms and presented to OSH ED and admitted on 10/07/23. Found to have L tibial fx s/p intramedullary nailDr. Darleen at [facility] (10/08/23). She was then transferred to [facility] [place]. She is s/p VPS reimplantation by Dr. Oconnor and Dr. Evans on 10/14. Intraoperative CSF cultures without growth. Plan to continue posaconazole at least through end of this year. She isto start asa bid on 10/24 for dvt ppx. Seen by WOCN for wounds as below - Coccyx : healed. -Left posterior heel: POA -Left anterior foot : Deep Tissue Pressure Injury, acquired While in the ARU, pt received physical therapy for range of motion, transfer training, endurance/ balance, fall prevention, and gait training with appropriate assistive devices, occupational therapy for activity of daily living/equipment/ functional transfer evaluation and training, and speech thera py for language evaluation and speech re-education. Team conferences were held to monitor progress and tailor program to patients needs. Patient had appropriate pain management, bowel management, sleep management, GI and DVT prophylaxis. Pt was stable throughout ARU course without major medical comp lication. Pt participated in all therapies and although with significant gradual improvement, would benefit from continuing skilled therapies and nursing at SNF prior to returning home. 10/23 stop robaxin, add zanaflex 4mg at bedtime and 2mg tid prn 10/27 zanaflex scheduled qid 10/28 d/w IM get f/u head CT d/t unresolved spasticity with pain 10/30 Shunt adjusted by Neurosurg from to 7 11/04 add gabapentin 300mg at bedtime Interval HPI: Pt. is alert, calm and cooperative during ROS and physical exam. There are no concerns for bowel issues. ileal conduit without complications, appropriate output without sediment or hematuria. Pt. is eating and drinking fluids appropriately. walker boot in place, denies pain at this time. pt. denies SHANNON, dizziness or double/blurred vision at this time. All labs and vital signs were reviewed. Pt. is participating in PT/OT without complications. Per nursing staff there are no acute changes to be addressed at this time. PAST MEDICAL HISTORY 02/16/2021: Asthma 02/2021: Bladder cancer (HCC) Comment: urothelial carcinoma 04/13/2021: Diabetes mellitus type 1 (HCC) Comment: diagnosed at age 6 02/16/2021: HTN (hypertension) 02/16/2021: Neoplasm of bladder 02/16/2021: Obesity 02/16/2021: Palpitations SUBJECTIVE: Review of Systems Constitutional: Positive for activity change and fatigue. Negative for fever. Respiratory: Negative. Cardiovascular: Negative. Gastrointestinal: Negative. Musculoskeletal: Positive for arthralgias. Neurological: Positive for weakness. Psychiatric/Behavioral: Negative. No reports of falls/injuries, changes in cognition/behaviors, or any uncontrolled pain exacerbations. Medications: Medications listed in Epic during SNF admission may not be current. Refer to facility record. Patient records, current medications, most recent labs, family/social history (unchanged) Reviewed.Refer to facility records. OBJECTIVE: Labs/diagnostics: reviewed Physical Exam: Physical Exam Constitutional: General: She is not in acute distress. Appearance: She is not toxic-appearing. HENT: Mouth/Throat: Mouth: Mucous membranes are moist. Pharynx: Oropharynx is clear. Eyes: Conjunctiva/sclera: Conjunctivae normal. Cardiovascular: Rate and Rhythm: Normal rate. Pulses: Normal pulses. Heart sounds: Normal heart sounds. Pulmonary: Effort: Pulmonary effort is normal. Breath sounds: Normal breath sounds. Abdominal: General: Bowel sounds are normal. Palpations: Abdomen is soft. Musculoskeletal: Comments: left walker boot Skin: General: Skin is warm and dry. Capillary Refill: Capillary refill takes less than 2 seconds. Neurological: Mental Status: She is alert. Mental status is at baseline. Motor: Weakness present. Psychiatric: Mood and Affect: Mood normal. Behavior: Behavior normal. POC discussed with appropriate parties and nursing staff. Electronically signed by Dilcia Carl APRN.STABLE HELPER documented in this encounterThe [facility] System07-25-2024 History and physical note * Amelia Parisi, DO - 11/08/2023 9:17 PM EDT Images from the original note were not included. Connected Care Unit History and Physical Facility: [facility] Level of Care: Skilled Admission Date: November 07, 2023 Prognosis: Rehab potential: Good I have reviewed the patient's recent hospital course and/or ED visit, including findings from pertinent diagnostic tests, discharge medications, and my assessment and plan with the patient at today svisit, and where applicable, with other persons listed here (None). Patient discussed with nursing staff at facility: Yes Time Based Billing Statement: The majority (>50%) of this visit was spent counseling and/or coordinating care for the patient regarding the above plan. Total time spent [id number] and/or counseling and coordinating care on the skilled care unit for patient was approximately 50 min Voice recognition software was used to create this note; inadvertent nitroglycerin supervisor errors may be present. SUBJECTIVE (HISTORY) Chief Complaint: weak HPI: This is a 58 year old female who [facility] 10[facility]-11/07/23 Summary of Rehab Course: content from discharge summary (copy/paste): HOSPITAL COURSE DURING INPATIENT REHAB: 58-year-old female with PMHx signficant for T1DM cb/ DKA, urothelial carcinoma of the bladder s/p radical cystectomy and ileal conduit c/b SBO (Dec 2021), HTN, chronic sinusitis, asthma, persistent encephalopathy and hydrocephalus. 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 She was followed by ID at [facility] and was on posaconazole. She is s/p shunt externalization at [facility] (06/27/23) during abdominal surgery for SBO and eventual VPS explantation (07/10/23). She was o riginally scheduled for shunt reinternalization with Dr. Oconnor on 11/20/23. She fell due to leg spasms and presented to OSH ED and admitted on 10/07/23. Found to have L tibial fx s/p intramedullary nailDrGiancarlo Morejon at [facility] (10/08/23). She was then [place] [facility] [place]. She is s/p VPS reimplantation by Dr. Oconnor and Dr. Evans on 10/14. Intraoperative CSF cultures without growth. Plan to continue posaconazole at least through end of this year. She isto start asa bid on 10/24 for dvt ppx. Seen by WOCN for wounds as below - Coccyx : healed. -Left posterior heel: POA -Left anterior foot : Deep Tissue Pressure Injury, acquired While in the ARU, pt received physical therapy for range of motion, transfer training, endurance/ balance, fall prevention, and gait training with appropriate assistive devices, occupational therapy for activity of daily living/equipment/ functional transfer evaluation and training, and speech thera py for language evaluation and speech re-education. Team conferences were held to monitor progress and tailor program to patients needs. Patient had appropriate pain management, bowel management, sleep management, GI and DVT prophylaxis. Pt was stable throughout ARU course without major medical comp lication. Pt participated in all therapies and although with significant gradual improvement, would benefit from continuing skilled therapies and nursing at SNF prior to returning home. 10/23 stop robaxin, add zanaflex 4mg at bedtime and 2mg tid prn 10/27 zanaflex scheduled qid 10/28 d/w IM get f/u head CT d/t unresolved spasticity with pain 10/30 Shunt adjusted by Neurosurg from to 7 11/04 add gabapentin 300mg at bedtime HTN/HLD -Monitor VS -Lisinopril, Metoprolol -11/05: BP has been on softer side. No tachycardia or sx, but possibly blunted by metoprolol. DC amlodipine, add parameters to Lisinopril. Note pt has 40mg ordered and was previously on 20 Lisinopril.Next step if needed to hold to back to 20mg Lisinopril. Make sure to take manual and clinically correlate. Encourage PO Hydration. 11/01 VSS 10/28 add Norvasc 10/24 increase Lisinopril DM1 -Insulin pump -Endocrinology consult Hx Urothelial CA of Bladder s/p Cystectomy w/ Ileal Conduit Hx SBO -Monitor output -Senna Past Medical History: PAST MEDICAL HISTORY Diagnosis Date Asthma 02/16/2021 Bladder cancer (HCC) 02/2021 urothelial carcinoma Diabetes mellitus type 1 (HCC) 04/13/2021 diagnosed at age 6 HTN (hypertension) 02/16/2021 Neoplasm of bladder 02/16/2021 Obesity 02/16/2021 Palpitations 02/16/2021 Past Surgical History: PAST SURGICAL HISTORY Procedure Laterality Date CYSTECTOMY W/BI PELVIC LYMPHADENECTOMY 04/2021 CYSTO.PANENDO 05/25/2021 EXPLORATORY OF ABDOMEN 12/17/2021 Reduction of small-bowel volvulus PAST SURGICAL HISTORY OF right ovary removed PAST SURGICAL HISTORY OF ORIF right ankle PAST SURGICAL HISTORY OF 02/18/2021 TURBT REMOVAL OF BLADDER & NODES VAGINAL HYSTERECTOMY Family History: FAMILY HISTORY Problem Relation Age of Onset Anesthesia Problems No Family History Colon Cancer No Family History Aneurysm No Family History Marital Status: Single. Social History: Social History Tobacco Use Smoking status: Never Smokeless tobacco: Never Vaping Use Vaping Use: Never used Substance Use Topics Alcohol use: Not Currently Drug use: Never Social History Social History Narrative Not on file Pre-Hospital Living Situation: . Functional Status: . Social History Social History Narrative Not on file Code Status: full Hospital Discharge Medications: oxyCODONE IR (ROXICODONE) 5 mg immediate release tablet Take 1 tablet by mouth every 6 hours as needed for up to 7 days. amLODIPine (NORVASC) 2.5 mg tablet Take by mouth once daily. dextrose 40 % gel Take 15 g by mouth as needed. insulin aspart U-100 (NOVOLOG) 100 unit/mL Use via insulin pump Max daily dose 100 units, DX: E10.65 polyethylene glycol 3350 17 gram packet Take 1 Packet by mouth once daily as needed. Dissolve dose in 4 - 8 ounces of liquid and take as directed. acetaminophen (TYLENOL) 325 mg tablet 2 tablets by ORAL/FEEDING TUBE route every 6 hours as needed for pain. aspirin, enteric coated (ADULT LOW DOSE ASPIRIN) 81 mg EC tablet Start ASA 81 mg BID on 10/24 Patient should start on October 25, 2023. lisinopril (ZESTRIL) 20 mg tablet 1 tablet by ORAL/FEEDING TUBE route once daily. metoprolol succinate ER (TOPROL XL) 100 mg Take 1 tablet by mouth every 12 hours at 6 am and [address] (NOXAFIL) 100 mg tablet Take 3 tablets by mouth once daily. senna-docusate (SENNA-S) 8.6-50 mg per tablet 1 tablet by ORAL/FEEDING TUBE route two times a day. methocarbamol (ROBAXIN) 500 mg tablet 1 tablet by ORAL/FEEDING TUBE route four times a day as needed. [DISCONTINUED] lactobacillus rhamnosus (CULTURELLE) 10 billion cell capsule Take 1 capsule by mouthonce daily. Allergies: ALLERGIES Allergen Reactions Demeral [Meperidine] GI Upset Nausea, pt states room spins Flexeril [Cyclobenz* Hives Versed [Midazolam] Mental Status Change Review of Systems: Home Oxygent Use: Review of Systems c/o leg spasms OBJECTIVE (EXAMINATION AND DATA) There were no vitals taken for this visit. Last Wt 10/19/23 : 70 kg (154 lb 5.2 oz) 10/10/23 : 55.3 kg (121 lb 14.6 oz) 10/04/23 : 55.3 kg (122 lb) 03/19/23 : 62.6 kg (138 lb) Physical Exam General appearance: NAD, weak Skin: kerlix left foot Head: Normocephalic, no masses, lesions, tenderness or abnormalities Eyes: Extraocular movements are intact. Ears: External ears normal Nose/Sinuses: Nares normal Oropharynx: lips normal Lungs: Lungs clear to auscultation. No wheezing, rhonchi, rales Heart: RRR without murmur, gallop, or rubs. Abdomen: Abdomen soft, non-tender. No masses, organomegaly urostomy Extremities:kerlix left foot Neuro: Gen weak Pertinent Labs and Imaging Results: CBC: BMP: Hemoglobin A1C (%) Date Value 10/07/2023 7.0 07/21/2022 8.3 04/13/2021 8.1 No results found for: TSH Vitamin D 25 Hydroxy (ng/mL) Date Value 10/10/2023 33.8 ] Diagnostic tests reviewed: Most recent labs and imaging results. A/P 58 yo F with hx of invasive bladder cancer for which she previously underwent robotic radical cystectomy (including left salpingo-oophorectomy, hysterectomy, anterior vaginectomy, vaginal reconstruction, and urethrectomy) , bilateral pelvic lymph node dissection, and intracorporeal ileal conduit urinary diversion 06/26/22 T5 intradural biopsy. path rare fungal hyphae Mgmt per IDJamie MD -Posaconazole 300 mg daily Current issues # weak Plan: PT/OT # communicating hydrocephalus 10/15/23 ventriculoatrial shunt # Left tibial shaft fracture and proximal fibula fracture 10/08/23 Procedure(s): Intramedullary nail of left tibia fracture Closed treatment of left proximal fibula Surgeon(s) and Role: * Daryl Morejon MD - Primary Plan: Activity per ortho # DM1 Has insulin pump # 06/26/22 T5 intradural biopsy. 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 Use subscriber ID: [email or web address] at website: [email or web address] [facility]07-25-2024 History and physical note* Amelia Parisi DO - 11/08/2023 9:17 PM EDT Images from the original note were not included. Connected Care Unit History and Physical Facility: [facility] Level of Care: Skilled Admission Date: November 07, 2023 Prognosis: Rehab potential: Good I have reviewed the patient's recent hospital course and/or ED visit, including findings from pertinent diagnostic tests, discharge medications, and my assessment and plan with the patient at today svisit, and where applicable, with other persons listed here (None). Patient discussed with nursing staff at facility: Yes Time Based Billing Statement: The majority (>50%) of this visit was spent counseling and/or coordinating care for the patient regarding the above plan. Total time spent [id number] and/or counseling and coordinating care on the skilled care unit for patient was approximately 50 min Voice recognition software was used to create this note; inadvertent nitroglycerin supervisor errors may be present. SUBJECTIVE (HISTORY) Chief Complaint: weak HPI: This is a 58 year old female who [facility] 10/20/23-11/07/23 Summary of Rehab Course: content from discharge summary (copy/paste): HOSPITAL COURSE DURING INPATIENT REHAB: 58-year-old female with PMHx signficant for T1DM cb/ DKA, urothelial carcinoma of the bladder s/p radical cystectomy and ileal conduit c/b SBO (Dec 2021), HTN, chronic sinusitis, asthma, persistent encephalopathy and hydrocephalus. 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 She was followed by ID at [facility] and was on posaconazole. She is s/p shunt externalization at [facility] (06/27/23) during abdominal surgery for SBO and eventual VPS explantation (07/10/23). She was o riginally scheduled for shunt reinternalization with Dr. Oconnor on 11/20/23. She fell due to leg spasms and presented to OSH ED and admitted on 10/07/23. Found to have L tibial fx s/p intramedullary nailDr. Randallri at [facility] (10/08/23). She was then transferred to [facility] [place]. She is s/p VPS reimplantation by Dr. Oconnor and Dr. Evans on 10/14. Intraoperative CSF cultures without growth. Plan to continue posaconazole at least through end of this year. She isto start asa bid on 10/24 for dvt ppx. Seen by WOCN for wounds as below - Coccyx : healed. -Left posterior heel: POA -Left anterior foot : Deep Tissue Pressure Injury, acquired While in the ARU, pt received physical therapy for range of motion, transfer training, endurance/ balance, fall prevention, and gait training with appropriate assistive devices, occupational therapy for activity of daily living/equipment/ functional transfer evaluation and training, and speech thera py for language evaluation and speech re-education. Team conferences were held to monitor progress and tailor program to patients needs. Patient had appropriate pain management, bowel management, sleep management, GI and DVT prophylaxis. Pt was stable throughout ARU course without major medical comp lication. Pt participated in all therapies and although with significant gradual improvement, would benefit from continuing skilled therapies and nursing at SNF prior to returning home. 10/23 stop robaxin, add zanaflex 4mg at bedtime and 2mg tid prn 10/27 zanaflex scheduled qid 10/28 d/w IM get f/u head CT d/t unresolved spasticity with pain 10/30 Shunt adjusted by Neurosurg from 6 to 7 11/04 add gabapentin 300mg at bedtime HTN/HLD -Monitor VS -Lisinopril, Metoprolol -11/05: BP has been on softer side. No tachycardia or sx, but possibly blunted by metoprolol. DC amlodipine, add parameters to Lisinopril. Note pt has 40mg ordered and was previously on 20 Lisinopril.Next step if needed to hold to back to 20mg Lisinopril. Make sure to take manual and clinically correlate. Encourage PO Hydration. 11/01 VSS 10/28 add Norvasc 10/24 increase Lisinopril DM1 -Insulin pump -Endocrinology consult Hx Urothelial CA of Bladder s/p Cystectomy w/ Ileal Conduit Hx SBO -Monitor output -Senna Past Medical History: PAST MEDICAL HISTORY Diagnosis Date Asthma 02/16/2021 Bladder cancer (HCC) 02/2021 urothelial carcinoma Diabetes mellitus type 1 (HCC) 04/13/2021 diagnosed at age 6 HTN (hypertension) 02/16/2021 Neoplasm of bladder 02/16/2021 Obesity 02/16/2021 Palpitations 02/16/2021 Past Surgical History: PAST SURGICAL HISTORY Procedure Laterality Date CYSTECTOMY W/BI PELVIC LYMPHADENECTOMY 04/2021 CYSTO.PANENDO 05/25/2021 EXPLORATORY OF ABDOMEN 12/17/2021 Reduction of small-bowel volvulus PAST SURGICAL HISTORY OF right ovary removed PAST SURGICAL HISTORY OF ORIF right ankle PAST SURGICAL HISTORY OF 02/18/2021 TURBT REMOVAL OF BLADDER & NODES VAGINAL HYSTERECTOMY Family History: FAMILY HISTORY Problem Relation Age of Onset Anesthesia Problems No Family History Colon Cancer No Family History Aneurysm No Family History Marital Status: Single. Social History: Social History Tobacco Use Smoking status: Never Smokeless tobacco: Never Vaping Use Vaping Use: Never used Substance Use Topics Alcohol use: Not Currently Drug use: Never Social History Social History Narrative Not on file Pre-Hospital Living Situation: . Functional Status: . Social History Social History Narrative Not on file Code Status: full Hospital Discharge Medications: oxyCODONE IR (ROXICODONE) 5 mg immediate release tablet Take 1 tablet by mouth every 6 hours as needed for up to 7 days. amLODIPine (NORVASC) 2.5 mg tablet Take by mouth once daily. dextrose 40 % gel Take 15 g by mouth as needed. insulin aspart U-100 (NOVOLOG) 100 unit/mL Use via insulin pump Max daily dose 100 units, DX: E10.65 polyethylene glycol 3350 17 gram packet Take 1 Packet by mouth once daily as needed. Dissolve dose in 4 - 8 ounces of liquid and take as directed. acetaminophen (TYLENOL) 325 mg tablet 2 tablets by ORAL/FEEDING TUBE route every 6 hours as needed for pain. aspirin, enteric coated (ADULT LOW DOSE ASPIRIN) 81 mg EC tablet Start ASA 81 mg BID on 10/24 Patient should start on October 25, 2023. lisinopril (ZESTRIL) 20 mg tablet 1 tablet by ORAL/FEEDING TUBE route once daily. metoprolol succinate ER (TOPROL XL) 100 mg Take 1 tablet by mouth every 12 hours at 6 am and [address] (NOXAFIL) 100 mg tablet Take 3 tablets by mouth once daily. senna-docusate (SENNA-S) 8.6-50 mg per tablet 1 tablet by ORAL/FEEDING TUBE route two times a day. methocarbamol (ROBAXIN) 500 mg tablet 1 tablet by ORAL/FEEDING TUBE route four times a day as needed. [DISCONTINUED] lactobacillus rhamnosus (CULTURELLE) 10 billion cell capsule Take 1 capsule by mouthonce daily. Allergies: ALLERGIES Allergen Reactions Demeral [Meperidine] GI Upset Nausea, pt states room spins Flexeril [Cyclobenz* Hives Versed [Midazolam] Mental Status Change Review of Systems: Home Oxygent Use: Review of Systems c/o leg spasms OBJECTIVE (EXAMINATION AND DATA) There were no vitals taken for this visit. Last Wt 10/19/23 : 70 kg (154 lb 5.2 oz) 10/10/23 : 55.3 kg (121 lb 14.6 oz) 10/04/23 : 55.3 kg (122 lb) 03/19/23 : 62.6 kg (138 lb) Physical Exam General appearance: NAD, weak Skin: kerlix left foot Head: Normocephalic, no masses, lesions, tenderness or abnormalities Eyes: Extraocular movements are intact. Ears: External ears normal Nose/Sinuses: Nares normal Oropharynx: lips normal Lungs: Lungs clear to auscultation. No wheezing, rhonchi, rales Heart: RRR without murmur, gallop, or rubs. Abdomen: Abdomen soft, non-tender. No masses, organomegaly urostomy Extremities:kerlix left foot Neuro: Gen weak Pertinent Labs and Imaging Results: CBC: BMP: Hemoglobin A1C (%) Date Value 10/07/2023 7.0 07/21/2022 8.3 04/13/2021 8.1 No results found for: TSH Vitamin D 25 Hydroxy (ng/mL) Date Value 10/10/2023 33.8 ] Diagnostic tests reviewed: Most recent labs and imaging results. A/P 58 yo F with hx of invasive bladder cancer for which she previously underwent robotic radical cystectomy (including left salpingo-oophorectomy, hysterectomy, anterior vaginectomy, vaginal reconstruction, and urethrectomy) , bilateral pelvic lymph node dissection, and intracorporeal ileal conduit urinary diversion 06/26/22 T5 intradural biopsy. path rare fungal hyphae Mgmt per IDJamie MD -Posaconazole 300 mg daily Current issues # weak Plan: PT/OT # communicating hydrocephalus 10/15/23 ventriculoatrial shunt # Left tibial shaft fracture and proximal fibula fracture 10/08/23 Procedure(s): Intramedullary nail of left tibia fracture Closed treatment of left proximal fibula Surgeon(s) and Role: * Daryl Morejon MD - Primary Plan: Activity per ortho # DM1 Has insulin pump # 06/26/22 T5 intradural biopsy. 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 Use subscriber ID: [email or web address] at website: [email or web address] documented in this encounterThe [facility] System07-25-2024 History of Present illness Narrative* Sharan Dominguez APRN.STABLE HELPER - 11/08/2023 3:53 PM EDT [facility] PROVIDER PROGRAM - NEW PATIENT CONSULTATION- SNF PATIENT NAME: Chikis Tobar SERVICE DATE: 11/08/[address] SERVICE FOR THIS VISIT: [facility] (POS [facility] Facility Name: [facility] Level of Care: Skilled Asked to see patient at the request of and in collaboration with Dr. Parisi for my opinion regardingpressure injuries of the left dorsal foot and left heel. My recommendations will be communicated through the shared medical record Program Participation Patient and /or caregiver instructed on wound care program Patient/caregiver consents to participate in the program. HISTORY OF PRESENTING PROBLEM Information provided by: Chart review, Patient, and Facility nurse Chikis Tobar is a 58 year old y/o female who presents for Wound Consult Location: Left dorsal foot, left posterior heel Onset: POA Aggravating factors: Diabetes mellitus, Mechanical devices related, Positioning, and Pressure Wound etiology: Pressure Associated pain with wound: Yes Relieving factors for wound pain: Positioning Treatments: Current: Polymem, DCD Recently in the hospital due to: Left tibia dx, hydrocephalus Wounds: POA to facility IMPRESSION/RECOMMENDATIONS The patient's age, altered mobility and other co morbidities are likely to impact wound and skin integrity Additional impediments to healing Diabetic: Yes Anticoagulation: Aspirin Antibiotics: No Steroids: No (L89.626) Pressure injury of deep tissue of left heel (primary encounter diagnosis)/ (R23.9) Maceration of periwound skin Comment: Consulted to evaluate deep tissue pressure injury to the posterior aspect of the left heel, POA to SNF, s/p left tibia fracture with use of walking boot. Upon exam, area is comprised of intradermal ecchymosis, soft and somewhat fluctuant. Periwound is macerated with some blanchable erythema. No open or draining area at this time. Will plan to initiate betadine to the area. Tender on exam. Plan: -Monitor for any s/s of infection- notify STABLE HELPER/MD of any pertinent findings -D/C previous wound care orders -Initiate wound care orders as follows to prevent infection and reduce maceration: Wound Care Order: - Cleanse wound and periwound skin with normal saline and gauze, gently pat dry. - Apply betadine liberally to DTI and periwound. - Cover with ABD and kerlix - Change dressing daily and PRN. (L89.896) Pressure injury of deep tissue of left foot Comment: Patient admitted to SNF with deep tissue pressure injury of the dorsal aspect of the left foot, s/p tibia fracture and walking boot placement. Upon exam, deep tissue pressure injury is resolved. Will plan to utilize skin prep and DCD in order to protect healed area from any friction/shearing from the walking boot. Plan: -May D/C previous wound care order -Apply skin prep liberally to left dorsal foot. Cover with ABD and kerlix. Change daily and PRN. (R53.81) Physical deconditioning Comment: Patient requires assistance with ADL's and mobility d/t recent left tibia fracture, hydrocephalus. Working with PT and OT. WBAT to LLE. Walking boot in place to LLE. Plan: - Turn and reposition frequently - Frequent weight shifts when seated - Nutritional support as appropriate SUBJECTIVE FAMILY HISTORY Problem Relation Age of Onset Anesthesia Problems No Family History Colon Cancer No Family History Aneurysm No Family History PAST MEDICAL HISTORY Diagnosis Date Asthma 02/16/2021 [...] Alcohol use: Not Currently Drug use: Never Future Appointments Date Time Provider Department Center 11/09/2023 1:15 PM Katiana Huang APRN.STABLE HELPER ENDOAV [facility] 11/16/2023 2:30 PM Jamie Mccarty MD [facility] Mn G Bldg 11/22/2023 1:[address] MAIN F30 (I-STAT) RCTMF Mn F Bldg 11/27/2023 8:20 AM XR [facility] 11/27/2023 9:20 AM Aashish Monge PA-C [facility] 11/29/2023 3:[address] MAIN CA RCTCAL Mn Ca Bldg 11/29/2023 4:00 PM Marlene Cordero PA-C NREUS2 Mn S Bldg 12/21/2023 9:00 AM Reggie Butler MD [facility] Mn S Bldg 09/16/2024 10:45 AM LAB MAIN Q2-1 LBQ2-1 Mn Q Bldg 09/16/2024 11:[address] 2 MAIN QB (I-STAT) RCTMN Mn Q Bldg FOLLOW UP PLAN Weekly as needed Information for ROS provided by Patient and Facility nurse REVIEW OF SYSTEMS Review of Systems Constitutional: Positive for activity change (Decreased). Negative for chills, diaphoresis and fever. HENT: Negative. Respiratory: Negative. Cardiovascular: Negative. Gastrointestinal: Negative. Genitourinary: + urostomy Musculoskeletal: Positive for arthralgias and gait problem. Skin: Positive for wound. Neurological: Positive for weakness (Generalized). Psychiatric/Behavioral: Negative. DIET: NCS (No Concentrated Sweets) diet, Regular texture, Regular/Thin consistency SUPPLEMENTS: Anuel APPETITE: fair MEDICATION REVIEW Medications listed in Epic during SNF admission may not be current. Refer to facility record Facility medication list reviewed: Yes Allergies Reviewed Prior chart notes reviewed OBJECTIVE PHYSICAL EXAM: Vital Signs: REVIEWED Physical Exam Vitals and nursing note reviewed. Constitutional: General: She is not in acute distress. Appearance: She is well-groomed and normal weight. She is not ill-appearing or toxic-appearing. Comments: Pleasant middle aged female sitting upright in wheelchair, calm and cooperative. HENT: Head: Normocephalic and atraumatic. Nose: No congestion. Mouth/Throat: Mouth: Mucous membranes are moist. Pharynx: Oropharynx is clear. Cardiovascular: Rate and Rhythm: Normal rate. Pulses: Normal pulses. Pulmonary: Effort: Pulmonary effort is normal. No respiratory distress. Abdominal: General: Abdomen is flat. There is no distension. Palpations: Abdomen is soft. Musculoskeletal: General: Tenderness (LLE) and signs of injury present. Right lower leg: No edema. Left lower leg: No edema. Comments: Walking boot to LLE. Skin: General: Skin is warm and dry. Findings: Wound (See HPI) present. Neurological: Mental Status: She is alert and oriented to person, place, and time. Motor: Weakness present. Gait: Gait abnormal. Psychiatric: Attention and Perception: Attention normal. Mood and Affect: Mood and affect normal. Speech: Speech normal. Behavior: Behavior normal. Behavior is cooperative. WOUND ASSESSMENT Location: Left Posterior Heel Type: pressure injury Stage: Deep tissue injury Exposed structure:None Progress: Initial visit Wound measurements (cm): 4.1 x 2.8 x 0 Full thickness: N/A Tunneling/undermining: none Wound tissue color: 100% intradermal ecchymosis Periwound tissue: macerated Drainage: none Drainage odor: N/A Location: Left Dorsal Foot Type: pressure injury Stage: Deep tissue injury Exposed structure:None Progress: Healed Wound measurements (cm): 0 x 0 x 0 Tunneling/undermining: none Wound tissue color: 100% epithelial Periwound tissue: dry, intact Drainage: None Drainage odor: None ANCILLARY DATA REVIEWED Managed by facility Albumin Date Value Ref Range Status 11/05/2023 3.8 (L) 3.9 - 4.9 g/dL Final Hemoglobin (g/dL) Date Value 11/05/2023 11.4 05/25/2021 10.6 Hematocrit (%) Date Value 11/05/2023 36.2 05/25/2021 31.6 WBC (k/uL) Date Value 11/05/2023 4.86 05/25/2021 12.30 Managed by facility. Counseled on wound prognosis and plan of care, Counseled patient, family or facility staff on woundhealing process. Counseled on treatment options, and Written wound care instructions left in facility. Visit billing based on time: No, visit will not be billed on time? I spent a total of 45 minutes on the date of the service which included preparing to see the patient, [id number] patient care, completing clinical documentation, reviewing separately obtained history, performing a medically appropriate examination, counseling and educating the patient/family/caregiver, and communicating with other HCPs (not separately reported). Joint visit made with Daniel Sandoval LPN Plan of Care discussed with facility nursing staff, patient, and referring provider. Mobile [facility] group to assume care for this condition unless otherwise heard back from the referring provider Wound care was performed during visit. SIGNATURE: Sharan Dominguez APRN.GONZALEZ POLLOCK PATIENT NAME: Chikis Tobar DATE: November 08, 2023 OFFICE #: [phone] PAGER/CONTACT #: [phone] documented in this encounterThe [facility]07-25-2024 Telephone encounter Note * Telephone Encounter - Madeleine Broderick - 11/08/2023 2:21 PM EDT Date Referral Received: 11/08/2023 Referral Source: [facility]07-25-2024 Miscellaneous Notes* Telephone Encounter - Madeleine Broderick - 11/08/2023 2:21 PM EDT Date Referral Received: 11/08/2023 Referral Source: [facility] documented in this encounterThe [facility]07-17-2024 History of Present illness Narrative* Marlene Cordero PA-C - 10/31/2023 1:17 PM EDT CC: GEOLOGICAL ENGINEERING TEACHER shunt f/u HPI: Mrs Chikis Tobar comes to clinic today for surgical f/u. She had a GEOLOGICAL ENGINEERING TEACHER shunt implanted on 10/11/23. Since surgery, Chikis reports improvement in the movement of her right leg. She does however, continue to experience intermittent spasms in the BLE which are limiting her movement. No new onset complaints at today's visit. She continues to work with PT at rehab. Focused Exam: Right frontal shunt site examined, [...] CN XII: Tongue protrusion full and midline Using wheel chair at today's visit Impression: Miss Chikis Tobar is a pleasant 58 year old female with a history of communicating hydrocephalus. 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 Her shunt was re inserted on 10/11/23 with Certas valve set to 6. Following surgery herright leg movement has improved. However, her activity is still greatly limited by BLE spasms whichare not controlled. She is using a wheel chair at today's visit and working with a rolator at rehab. CT brain shows shunt placement with slit like ventricles, no sign of hemorrhage. Image and plan discussed with Dr Oconnor. Discussed in detail possible benefits and risks of GEOLOGICAL ENGINEERING TEACHER shunt adjustment. After discussion with Chikis due to rapid reduction of ventricle, she would like to undergo shunt adjustment. Certas valve shunt was adjusted from 6 to 7. We discussed in detail the warning signs and symptoms of overdrainage as well as when to contact our office or present to the ED if concern is severe. Follow up in [address] brain Plan: Shunt information Shunt type: Certas Initial settin New settin Marlene Cordero PA-C documented in this encounterThe [facility] System07-15-2024 History of Present illness Narrative* Thierry Hills CT - 10/29/2023 3:30 PM EDT Radiology Service Progress Note PATIENT NAME: Chikis Tobar DATE OF SERVICE: October 29, 2023 TIME: 2:04 PM PATIENT IDENTITY VERIFICATION COMPLETED USING TWO (2) IDENTIFIERS: Name and Date of confirmedby patient verbally. FALL SCREENING: Has the patient had 2 falls in the last year or 1 fall with injury or currently using an Ambulatory Assistive Device (Walker, Cane, Wheelchair, Crutches, etc.)? Inpatient: Screened onfloor PATIENT GENDER DATA: Female. status: : No status: NO. PATIENT RELEVANT IMPLANT DATA REVIEWED: Not Applicable PATIENT PRESENTS WITH AN IMPLANTABLE OR ATTACHED AIRCRAFT DESIGN ENGINEER: No RADIOLOGY DEPARTMENT: CT; Exam(s) Completed: Brain PERIPHERAL IV DATA: Not applicable SIGNED BY: SERENITY CASTELLANOS October 29, 2023 2:04 PM documented in this encounterThe [facility] System07-15-2024 NoteHNO ID: [id number] Author: THIERRY HILLS CT Service: Radiology Author Type: Technologist Type: Progress Notes Filed: 10/29/2023 14:06 Note Text: Radiology Service Progress Note PATIENT NAME: Chikis Tobar DATE OF SERVICE: October 29, 2023 TIME: 2:04 PM PATIENT IDENTITY VERIFICATION COMPLETED USING TWO (2) IDENTIFIERS: Name and Date of confirmed by patient verbally. FALL SCREENING: Has the patient had 2 falls in the last year or 1 fall with injury or currently using an Ambulatory Assistive Device (Walker, Cane, Wheelchair, Crutches, etc.)? Inpatient: Screened on floor PATIENT GENDER DATA: Female. status: : No status: NO. PATIENT RELEVANT IMPLANT DATA REVIEWED: Not Applicable PATIENT PRESENTS WITH AN IMPLANTABLE OR ATTACHED AIRCRAFT DESIGN ENGINEER: No RADIOLOGY DEPARTMENT: CT; Exam(s) Completed: Brain PERIPHERAL IV DATA: Not applicable SIGNED BY: SERENITY CASTELLANOS October 29, 2023 2:04 [place] [id number] History of Present illness Narrative* Vamshi Spencer RN - 10/25/2023 12:19 PM EDT Name: Chikis Tobar October 25, 2023 Date of Surgery/Injury: 10/08/23 Procedure(s): Intramedullary nail of left tibia fracture, CPT 87788 Closed treatment of left proximal fibula, CPT 91223 Subjective:Patient presents today for post op splint/dressing change/removal and suture/staple removal. Patient reports: Doing well post operatively, pain is well controlled with current regimen, butshe is having muscle spasms which has made her unable to start walking, she'll follow up with neurosurgery in November. She is staying at a nursing facility/rehab and working with PT/OT. Objective: PHYSICAL EXAM: General:Alert, no distress, cooperative Left Lower Extremity: Skin: Incision/s healing well, sutures/lorna intact, edges well approximated, no erythremia, or other signs of infection Drainage: None Swelling mild with wrinkles present. Sutures/lorna removed today under the direction of Dr. Morejon. Vascular: left lower extremity warm with brisk cap refill. Neuro: Sensation intact in saphenous/sural/deep peroneal/superficial peroneal/tibial nerve distribution Musculoskeletal: No tenderness to palpation over fracture and Decreased motion secondary to pain Images: Imaging was obtained today and reviewed by Dr. Morejon Assessment and Plan: -Lorna/Sutures removed and Steri-Strips placed: Allow steri-strips to fall off on their own. -Ok to shower, pat incision area dry. No soaking/submerging -Physical/Occupational therapy: Continue PT/OT at nursing facility -Activity/Weightbearing: Weight bearing as tolerated in boot and ROMAT, she has skin breakdown on the top of her foot and heel- pad boot as needed, let us know if worsening -Follow up: 4-6 weeks with x-rays with Dr. Morejon or orthopedic trauma PA. Humza Spencer RN RN Post-Op Clinic oversight/resource Aashish Monge PA-C/Dr. Morejon documented in this encounterThe [facility] System07-11-2024 Instructions* Patient Instructions* Vamshi Spencer RN - 10/25/2023 12:16 PM EDT Continue PT/OT WBAT in a tall CAM boot. Pad heel/foot as needed Ok to remove for PT/OT and hygiene -Lorna/Sutures removed -Ok to shower, pat incision area dry. No soaking/submerging documented in this encounterThe [facility] System07-11-2024 History of Present illness Narrative* Kofi Meneses RT(R) - 10/25/2023 11:40 AM EDT Radiology Service Progress Note PATIENT NAME: Chikis Tobar DATE OF SERVICE: October 25, 2023 TIME: 11:59 AM PATIENT IDENTITY VERIFICATION COMPLETED USING TWO (2) IDENTIFIERS: Name and Date of confirmedby patient verbally. FALL SCREENING: Has the patient had 2 falls in the last year or 1 fall with injury or currently using an Ambulatory Assistive Device (Walker, Cane, Wheelchair, Crutches, etc.)? Inpatient: Screened onfloor PATIENT GENDER DATA: Female. status: : No status: NO. PATIENT RELEVANT IMPLANT DATA REVIEWED: Not Applicable PATIENT PRESENTS WITH AN IMPLANTABLE OR ATTACHED AIRCRAFT DESIGN ENGINEER: No RADIOLOGY DEPARTMENT: General X-ray: Exam(s) Completed: Lower Extremity X- Ray(s): Tibia Fibula, Left and Ankle, Left PERIPHERAL IV DATA: Not applicable SIGNED BY: RT Sanju(R) October 25, 2023 11:59 AM documented in this encounterThe [facility] System07-06-2024 History of Present illness Narrative* Cassidy Navarrete - 10/20/2023 4:24 PM EDT [facility] PRECERT [facility]. Precert approved through [facility]. For any additional questions regarding approvals, transport or care management needs, please contact the CM assigned to this patient in the Treatment Team. SIGNATURE: Cassidy Navarrete DATE: October 22, 2023 TIME: 9:54 AM documented in this encounterThe [facility] System06-22-2024 Telephone encounter Note * Telephone Encounter - Caro Bradley MD - 10/06/2023 3:51 PM EDT 68 years old female status post fall requested to be transferred from [facility] to [facility] for tibia/fibula fracture will need ortho PT/OT evaluation. [facility] Work Phone: [phone]) 935-276706-22-2024 Miscellaneous Notes* Telephone Encounter - Caro Bradley MD - 10/06/2023 3:51 PM EDT 68 years old female status post fall requested to be transferred from [facility] to [facility] for tibia/fibula fracture will need ortho PT/OT evaluation. documented in this encounterThe [facility]health System06-22-2024 Evaluation + Plan note Extracted from:Title:ED NoteAuthor:Venancio Jones, Tree HDate:10/06/23 1. Fall (W19.XXXA: Unspecifi ed fall, initial encounter) 2. Fracture of left tibia and fibula (S82.202A: Unspecified fracture of shaft of left tibia, initial encounter for closed fracture) 3. Unable to ambulate (R26.2: Difficulty in walking, not elsewhere classified) Unspecified fracture of shaft of left fibula, initial encounter for closed fracture (S82.402A: Unspecified fracture of shaft of left fibula, initial encounter for closed fracture) Orders: fentanyl, 50 microgram = 1 mL, Injection, IV Push, Once, Stop date 10/06/23 13:00:00 EDT, STAT, Start date 10/06/23 13:00:00 EDT, 10/06/23 13:00:00 EDT HYDROmorphone, 0.5 mg = 0.5 mL, Injection, IV Push, Once, Stop date 10/06/23 16:04:00 EDT, STAT, Start date 10/06/23 16:04:00 EDT, 10/06/23 16:04:00 EDT HYDROmorphone, 0.5 mg = 0.5 mL, Injection, IV Push, Once, Stop date 10/06/23 14:26:00 EDT, STAT, Start date 10/06/23 14:26:00 EDT, 10/06/23 14:26:00 EDT Transfer Patient to Ankle 3+ Views Left [facility]06-20-2024 History of Present illness Narrative* Dione Pepper RDMS - 10/04/2023 2:45 PM EDT Radiology Service Progress Note PATIENT NAME: Chikis Tobar DATE OF SERVICE: October 04, 2023 TIME: 3:26 PM PATIENT IDENTITY VERIFICATION COMPLETED USING TWO (2) IDENTIFIERS: Name and Date of confirmedby patient verbally and Name and Date of confirmed by identification band. FALL SCREENING: Has the patient had 2 falls in the last year or 1 fall with injury or currently using an Ambulatory Assistive Device (Walker, Cane, Wheelchair, Crutches, etc.)? Yes, Patient High Riskfor Falls What interventions were put in place to prevent falls during this visit? Non- Skid Socks Used, Yellow Falls Risk Wristband Applied, Offered Assistance with Transfers/Clothing, Instructed Patient to Remain Seated (Not on Exam Table) Until Exam, Increased Observations by Caregivers, and Escorted to/from Restroom PATIENT GENDER DATA: Female. status: : No status: NO. PATIENT RELEVANT IMPLANT DATA REVIEWED: Not Applicable PATIENT PRESENTS WITH AN IMPLANTABLE OR ATTACHED AIRCRAFT DESIGN ENGINEER: No RADIOLOGY DEPARTMENT: Ultrasound PERIPHERAL IV DATA: Not applicable SIGNED BY: Dione Pepper RDMS October 04, 2023 3:26 PM documented in this encounterThe [facility]06-20-2024 History of Present illness Narrative* Marlene Cordero PA-C - 10/04/2023 1:17 PM EDT CC: Communicating hydrocephalus HPI: Miss Chikis Tobar presents for wound check at VPS removal site. Chikis's shunt was removed at [facility] on 07/10/23 following surgery for bowel obstruction. Since surgery, she had noticed scabbing atthe incision site. Last week she felt the scab fall off and has not experienced any drainage, feveror signs of infection. Focused Exam: No erythema, edema, warmth, or drainage noted. Incision well approximated without evidence of wounddehiscence. Impression: Miss Chikis Tobar is a pleasant 58 year old female with a history of communicating hydrocephalus. Her GEOLOGICAL ENGINEERING TEACHER shunt was removed on 07/10/23 following laparotomy for bowel obstruction. She had continuedscabbing at incision site until last week when it fell off. Incision is now well healed without signs of infection. Chikis admits continued issues with ambulation without acute change. She met with ID team today and need for imaging discussed. Chikis is scheduled for shunt reimplantation on 11/20/23. Discussed in detail red flag symptoms and when to present to ED Marlene Cordero PA-C documented in this encounterThe [facility] System06-20-2024 History of Present illness Narrative* Mamadou Garcia MD - 10/04/2023 12:00 PM EDT Images from the original note were not included. INFECTIOUS DISEASES OUTPATIENT FOLLOW-UP NOTE SERVICE DATE: 10/04/2023 Last visit: 05/10/2023 INTERVAL HPI : HPI: 57 year old [...] performed and she was transferred to [facility]. She was found to have DKA. A CT head showed hydrocephalus with MRI on May 29 showing multiple enhancement in the anterior sabra, medulla, and in the spine at the level of C7-T3 and L1-S2. Multiple taps were performed and were unsuccessful. A GEOLOGICAL ENGINEERING TEACHER shunt was placed and patient underwent a [...] lobes (8 mm). LFTs 08/16 normal . GEOLOGICAL ENGINEERING TEACHER shunt was adjusted from 4 to 7 Posaconazole level 2.4 on 08/21/22 Developed a facial rash in September 2022, mainly the malar area, a few spots on the forehead. 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 She was seeing wound care at [facility] for her sacral area ulcer. Rx'd with [...] cytology. Continue surveillance imaging q 6 months. [place] remains in place. ID clinic 01/15/23, doing fairly well overall, tolerating posaconazole. Strength improving and ambulatory, using a cane PRN. No GEOLOGICAL ENGINEERING TEACHER shunt issues. Balance has improved but still needs to work on it. Area of persistent numbness in the upper thoracic region which has not changed much, along with some areas of numbness on the lateral thighs, which has been present all along. Facial rash better, being treated as rosacea by PCP. Glucose well controlled. Plan 1 year of antifungals and then reassess withimaging. ID clinic 03/19/23: Seemed to have reached a plateau with her neuro recovery, with stable balance problems and various areas of sensory loss. Neuro exam showed abnormal Romberg (unable to stand feet together with eyes OPEN), balance deficits, some decreased sensation upper back region (around T5) and patchy areas both anterolateral thighs. Ambulatory with a cane, improving wt, and overall motor strength. Had a near fall in prior week without direct head trauma, probably due in part to chronic balance problems. Also had bilateral shoulder pains and receiving PT. Last MRI brain 07/07/22 (postop) showed FLAIR hyperintensity of trigeminal nerves, facial, and vestibulocochlear, and glossopharyngeal and vagal nerves (no significant contrast enhancement of cranial nerves though). MRI of cord 07/07/22 showed extensive leptomeningeal enhancement throughout the entire spinal canal and extending intothe brainstem and basilar cisterns. Plan for MRI of brain and spine, neurosurgical FU to evaluate shunt settings after MRI. Offered Orthopedics consult for bilateral shoulder pain, presumed rotator cuff ID clinic 05/10/23: MRI brain and spine yesterday with significant improvement in the extensive leptomeningeal enhancement (see below) from the brain stem to the cauda equina. The FLAIR hyperintensityinvolving multiple cranial nerves has resolved. Still some areas of loculation in the prepontine area and in ventral thoracic area (images below), but diffuse lepto and some pachymeningeal enhancement throughout is better. There is a persistent intramedullary T2/STIR hyperintense signal in the thoracic cord T2-T3 to T7-T8. numbness around both the knee areas in particular but also the thighs. This is not painful and she can still feel in the thigh regions as well as around both knees but it is d efinitely less than other areas. Has the sensation that the knees feel puffy but says they are not really puffy There is also an area of partial numbness on the upper back around the area of the incision that is similar; she can feel everything when touched there but the sensation is less than other areas of the back. This matches up with the MRI of the T spine. Admitted to [facility] 06/24-07/13/2023 Presented to [facility] 06/24 with c/f possible SBO. 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 NSGY maintained the externalized shunt at the clavicle via an EVD and was the valve was adjusted from 7 to 8 to see if the patient would continue to remain shunt independent for a prolonged course. Following seven days of a clamped EVD, patient was deemed shunt independent and theVPS was removed by Dr. Figueroa on 07/09. -Urology, Dr. Chambers, placed and managed a TOD drain that was removed prior to discharge. Bilateral ureteral stents to be removed 07/26/23 08/30/23 neurosurgery visit: Over the past 2 weeks Chikis has seen worsening in her ambulation. She continues to use a rolator but feels much more unbalanced and is starting to shuffle. No additional neurologic complaints 09/04/23 telehealth visit: she has fallen a few times in this time period. She was concerned that she was unable to get herself up off the floor on her own. 09/20/23 neurology visit -At the end of July, she developed weakness in her BLE. When she goes to turn to stand up, her legs will involuntarily flex and the hip and knee and dorsiflex at the foot. This also happens when sheis laying flat and therapists will have to help her straighten her legs. She has no control over this. It does hurt when this happens in her knee area. This has slowly been getting worse since July. The legs are also weak, R>L, and the right leg will drag when she walks. -On exam, patient has spasticity and triple flexion in BLE in addition to weakness and hyperreflexia. Findings are concerning for worsening hydrocephalus, especially given that her CT head in July showed larger ventricles compared to prior MRI -Imaging ordered but not performed yet presents today 10/04/23 to ID clinic for follow-up US kidney/ureter Weakness started 2-3 after going home, initially trouble standing, then started having spasms with tensing (now for 1 month), more weakness and worsening spasms -no new numbness, -spasms will wake her up at sleep, now every hour or so, was 2-3 days per day July vision right eye was 20/20 now 20/40 R weaker L MEDICATIONS: Current Outpatient Medications Medication Sig NOXAFIL 100 mg tablet Take 3 tablets by mouth every afternoon. MAGNESIUM ORAL Take 400 mg by mouth once daily. (Patient not taking: Reported on 09/18/2023) metoprolol succinate ER (TOPROL XL) 100 mg Take 1 tablet by mouth every 12 hours 6am/6pm. insulin lispro (HUMALOG U-100 INSULIN) 100 unit/mL injection Inject 0-5 units subcutaneously at bedtime. <110 Give 0 units 111-150 Give 0 units 151-200 Give 1 unit 201-250 Give 2 units 251-300 Give 3 units 301-350 Give 4 units 351-400 Give 5 units >400 give 5units and notify provider. glucagon (BAQSIMI) 3 mg/actuation nasal spray Use 1 [place] in the nose as needed. acetaminophen (TYLENOL) 325 mg tablet Take 2 tablets by mouth every 6 hours as needed for pain. fexofenadine (ALESSIO) 180 mg tablet Take by mouth. PRN No current facility-administered medications for this visit. PHYSICAL EXAM PSYCHIATRIC: Oriented x 3, appropriate affect, SKIN: dried scab lesion on scalp without erythema or discharge H: no lesions. GEOLOGICAL ENGINEERING TEACHER shunt palpable along its track and nontender EYES: PERRL EOMI no scleral icterus, no conjunctivitis ENT: no oral lesions NECK: no meningismus RESPIRATORY: symmetrical chest expansion and respiratory effort, clear to auscultation CARDIOVASCULAR: S1, S2, no murmurs, no gallops, no rubs, no edema ABDOMINAL: soft, non-distended, non-tender. Ileal conduit stoma in place, pink and no [arastomal hernia MUSCULOSKELETAL: no joint effusions or swelling. EXTREMITIES: Within normal limits NEUROLOGICAL: alert, oriented, speech appropriate CRANIAL NERVES: Pupils: OD Right: 3 mm Reactive OS Left: 3 mm Reactive III, IV, EOM full V Facial sensation normal to light touch VII Normal strength VIII Normal bilaterally to finger rub IX, X Normal, midline palatal rise XI Symmetric shrug, and head rotation XII Tongue midline, mobile Motor: UE BICEPS TRICEPS DELTS Wrist Ext Wrist Flex Payment Rep R 5/5 5/5 5/5 5/5 5/5 5/5 L 5/5 5/5 5/5 5/5 5/5 5/5 LE Hip Flex Knee Flex Knee Extend Plantarflex Dorsiflex EHL R 5/5 5/5 5/5 5/5 5/5 5/5 L 5/5 5/5 5/5 5/5 5/5 5/5 Pronator drift: no pronator drift bilaterally Sensory: light touch: decreased in high thoracic area on back (but able to perceive LT), slight decreased sensation to bilateral legs (unable to distinguish sharp from soft) Lateral thighs also with decreased LT (but able to correctly perceive) Reflexes: RIGHT LEFT Brachioradialis 2+ 2+ Biceps 2+ 2+ Triceps 2+ 2+ Knee 3+ 3+ Achilles 1+ 1+ Long Tract Signs: + upgoing plantars bilaterally Muscle tone: increased tone in both legs No fasciculations or tremors noted. Gait not assessed LABORATORIES Latest Ref Rng 11/15/2022 02/20/2023 03/19/2023 05/10/2023 Posaconazole, Serum 0.7 - 3.9 ug/mL 3.4 3.1 3.7 2.7 MICROBIOLOGY: 07/19/22 COVID PCR neg 07/08/22 CSF cryptococcal antigen negative, fungal culture negative 07/02 CSF culture 07/02 NG [place] fungal PCR PCR from biopsy tissue both negative ([facility]) 06/28 CSF (labelled lumbar puncture but is from EVD): MNGS negative 06/27 CSF (labelled lumbar puncture but is from EVD): No growth, Crypto antigen negative 06/26 OR cultures Dural/subdural itradural thoracic lesion Tissue: gram stain negative. NGTD Wound culture: gram stain negative. NGTD AFB smear no organsims. Fungal: smear: no fungus seen [place] bacterial, fungal and AFB PCRs: negative (entire [...] on the AFB or gram stain sections. RADIOLOGY MRI brain, C-T-L spine 05/09/23: Interval decreased size of the peripherally enhancing collection in the interpeduncular, prepontine and cerebellopontine angle cisterns compared to the prior MRI. 05/09/23: T1 fl3d ax 18, 64 MRI 07/07/22, T1 fl3d, 41, 116 Near complete resolution of leptomeningeal enhancement involving the prepontine cistern and cerebellopontine angle cisterns, along the surface of the sabra and medulla compared to prior exam. No new or progressive pathologic enhancement. 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 Ventricular interstitial edema compared to the prior exam. Right frontal approach ventriculostomy shunt catheter is present. Interval improvement in diffuse abnormal leptomeningeal and pachymeningeal intradural enhancement throughout the cervical, thoracic and lumbar spine compared to the prior MRI 07/07/2022 with residual decreased patchy enhancement in the thoracic and lumbar spine. Patchy residual enhancement along the cauda equina nerve roots and ventral thecal sac in the lumbar spine, improved. Persistent abnormal intramedullary T2/STIR hyperintense signal in the thoracic cord with slight increased caudal extension from T2-T3 to T7-T8 compared to prior exam. Persistent deformity and expansion of the cord at these levels. Unchanged loculated arachnoid collection along the ventral lower cervical and upper thoracic spine with displacement of the cervical thoracic cord compared to prior exam. 05/09/23 SAG T1 ASIF, 7, 8 T2 tirm sag bone 8,8 07/07/22 SAG T1 TSSE 43, 8 Postoperative findings of dorsal decompression at T5-T6 with involution of the previously seen postoperative collection in the laminectomy defect and resolution of mass effect. Unchanged chronic compression fracture of T5 without bony retropulsion or canal stenosis. No significant canal or foraminal stenoses in the cervical, thoracic or lumbar spine. Cervical Anatomic Variant: None. Assume 7 cervical vertebrae with counting from the craniocervical junction. Anatomic Thoracic/Lumbar Variant: None. L4-5 is considered the level of the iliac crest and assume there are 5 lumbar-type vertebrae. ASSESSMENT: 57 year old woman with history [...] in DKA - 05/29/22 MRI brain from [facility] with leptomeningeal enhancement, communicating hydrocephalus - 06/07/22 MRI spine with diffuse LMD throughout spinal cord and cauda equina with loculated CSF in anterior thecal sac at C7-T3 with posterior displacement of cord and cord compression. T4-9 intramedullary hyperintensity suggesting cord edema due to compression superiorly - Course complicated by unsuccessful LP attempts at [facility] then transferred to [facility] - s/p cisternal tap [...] with fungal hyphae confirmed on multiple sections. [place] PCR and cultures all negative, including the tissue block in its entirety sent for universal fungal PCR and negative - CSF 06/28/22 negative on Next Gen sequencing - posaconazole started 06/29/22 - s/p GEOLOGICAL ENGINEERING TEACHER shunt on 07/10.and improving MS since then. - small subdural hygromas over frontal convexities on CT 08/16/22, shunt settings adjusted - facial rash in September 2022, mainly the malar area, a few spots on the forehead. Dx'd with rosacea by PCP and started on metronidazole gel, improved - sacral area ulcer, saw wound care at [facility]. Rx'd with medical honey gel and silicone [...] She continues on empiric oral posaconazole about 10+ months now (start 06/29/22) and is stable. MRI scan shows significant improvement in the leptomeningeal enhancement throughout the brainstem and entire cord. The area of enhancing fluid centered in the prepontine cistern is smaller. There is stillsome CSF loculation in the thoracic area ventrally with some cord displacement. This is at the level of the surgical site. There is a corresponding T2/FLAIR intramedullary signal in the cord at that level that probably is a chronic cord injury. Her neuro exam had improved, and seems to have plateaued over recent months. Has some chronic balance problems and various areas of sensory loss. Neuro exam shows abnormal Romberg (unable to stand feet together with eyes OPEN), balance deficits, some decreased sensation upper back region (around T5) and patchy areas both anterolateral thighs. MS is at baseline. She had been ambulatory with a canebefore her fall in late Mar 2023, improving wt, and overall motor strength. Had a set back with thefall and left patellar fracture, but is coming along with conservative therapy. She is on posaconazole which has broad anti-mold activity including mucorales (could not R/O Zygomycetes completely based on morphology, and multiple negative fungal cultures/PCR). Although morphologically the organisms looked more like aspergillus, even zygomycetes such as mucorales spp can be mistaken for aspergillus. Mucor has been a consideration since the infection started in the setting of DKA x 3. The downside of posaconazole is lower [employer] penetration than voriconazole, but voriconaole has no activity against mucor. Will continue with posaconazole, given clinical and MRI improvement. Her current symptoms are atypical and not what would be expected with just hydrocephalus given lackof headache. She reports lower extremity spasms, intermittently every day since the GEOLOGICAL ENGINEERING TEACHER shunt was removed at [facility]. Exam does not clearly show spasticity today but she does have mild hyperreflexia of lower extremity and plantars are upgoing. Posaconazole level is therapeutic and last MRI of brain and cord showed significant improvement of fungal infection; seems unlikely that her leg spasms are due to uncontrolled fungal infection at this time. Does report significant intermittent loose stools since bowel surgery and could have some electrolyte abnormalities which may explain cramping symptoms that could be mistaken for spasms PLAN: - Continue posaconazole 300 mg daily for another 6 months - will need another prior authorization - Will check CBC, CMP, Mag, Phos, posaconazole trough level, CRP, - Will plan on MRI cervical-thoracic spine only October 2023, to help decide length of therapy of posaconazole - Has CT imaging of head ordered for next week - FU 1-2 months Mamadou Garcia MD PGY-5 Infectious Disease fellow DATE: October 04, 2023 TIME: 11:52 AM Contact Information: pager [phone]+++++++++++++++++++++++++++++++++++++++++++++++++++++++++++++++++++++++++++++ INFECTIOUS DISEASES STAFF October 04, 2023 Details well outlined by Dr Garcia above. We saw the patient together and gordon elements confirmed. His note has been edited by me. I [...] concur. Changes, if any, are noted Jamie Mccarty MD, [facility], FACP Infectious Diseases Staff Section Neuro-ID October 04, 2023 I spent a total of 50 minutes on the date of the service, separate from teaching/education time, which included preparing to see the patient, review of records, review of relevant guidelines and medical literature to assist in medical decision making, [id number] patient care, completing clinical d ocumentation, obtaining and/or reviewing separately obtained history, performing a medically appropriate examination, counseling and educating the patient/family/caregiver, ordering medications, tests, or procedures, independently interpreting results (not separately reported), communicating results to the patient/family/caregiver, and care coordination (not separately reported) documented in this encounterThe [facility]06-06-2024 Telephone encounter Note * Telephone Encounter - Marlene Cordero PA-C - 09/20/2023 11:42 AM EDT Call to [place], All questions answered. Marlene Cordero PA-C [facility] Work Phone: 1(690) 817-205506-06-2024 Miscellaneous Notes* Telephone Encounter - Marlene Cordero PA-C - 09/20/2023 11:42 AM EDT Call to [place], All questions answered. Marlene Cordero PA-C documented in this encounterThe [facility] System06-05-2024 Telephone encounter Note * Telephone Encounter - Jamie Mccarty MD - 09/19/2023 6:38 PM EDT ID STAFF Spoke with patient Saw [facility] neuro for her leg flexion and gait problems. Told her they were concerned the fungal infection was back, and ordered MRI of brain and spine Pt says her current problems with the legs involuntarily flexing started about 2-3 weeks after the shunt was removed at [facility], and never had these symptoms when the fungal meningitis was active Note from Neuro pending Has been taking the posaconazole without problems She also notes scabs on the scalp and sutures still present where the GEOLOGICAL ENGINEERING TEACHER shunt was removed at [facility] Plan: - add on visit with me try 10/04/23 - has virtual visit with NSGY on 10/03-- will see if can be changed to in person - continue posaconazole Jamie Mccarty MD September 19, 2023 [facility]06-05-[facility]24 Miscellaneous Notes* Telephone Encounter - Jamie Mccarty MD - 09/19/2023 6:38 PM EDT ID STAFF Spoke with patient Saw [facility] neuro for her leg flexion and gait problems. Told her they were concerned the fungal infection was back, and ordered MRI of brain and spine Pt says her current problems with the legs involuntarily flexing started about 2-3 weeks after the shunt was removed at [facility], and never had these symptoms when the fungal meningitis was active Note from Neuro pending Has been taking the posaconazole without problems She also notes scabs on the scalp and sutures still present where the GEOLOGICAL ENGINEERING TEACHER shunt was removed at [facility] Plan: - add on visit with me try 10/04/23 - has virtual visit with NSGY on 10/03-- will see if can be changed to in person - continue posaconazole Jamie Mccarty MD September 19, 2023 documented in this encounterThe [facility] System06-04-2024 Instructions* Patient Instructions* Lex Ervin MD - 09/18/2023 9:16 AM EDT It was a pleasure to see you today. We addressed the following diagnoses: Other hydrocephalus (hcc) Hydrocephalus, adult (hcc) (primary encounter diagnosis) Meningitis, fungal Weakness of both lower extremities Spasticity My recommendations are as follows: 09/18/2023 Visit: Lower extremity weakness and spasticity - Get MRI brain and full spine to look for hydrocephalus vs infection We will let Marlene and Dr. Oconnro know our thoughts We will also send a message to Dr. Mccarty to let him know as well Continue to work with physical therapy Interested in clinical research? Not currently Movement Disorders Medication Schedule: Medications No follow-ups on file. If there are any concerns before your next visit, please call or you can send a message through [employer]. You can also now schedule and select appointments through [employer]. Lex Ervin MD documented in this encounterThe [facility] System06-04-2024 History of Present illness Narrative* Tonie Rosado MD - 09/18/2023 8:02 AM EDT [facility] - NEW PATIENT EVALUATION Referring Provider: Marlene Cordero [id number] [facility] [id number] Primary Care Provider: Kalli Simons MD [address] [facility] [id number] Dear Marlene Cordero: Thank you for referring Ms. Tobar to our clinic today. As you know she is a 58 year old right-handed female who is seen in consultation for evaluation of hydrocephalus since May 2022 . She is seen alone. Subjective HISTORY OF PRESENT ILLNESS: Initial HPI Patient is referred from neurosurgery for communicating hydrocephalus and gait instability. Patient has a medical history of urothelial carcinoma status post radical cystectomy and ileal conduit in 2021, hypertension, type 1 diabetes, asthma. In April 2022 she was admitted for encephalopathy and was found to have DKA and was subsequently discharged to SNF. On May 27, 2022, the patient was found unresponsive and required CPR. She was found to have DKA again. CT of the head showed hydrocephalus with MRI on May 29 showing multiple enhancements in the anterior sabra, medulla, and in the spine at C7-T3 and L1-S2. Multiple taps were performed and were unsuccessful. A GEOLOGICAL ENGINEERING TEACHER shunt was placed and the patient underwent a meningeal biopsy with pathology showing-a elements. CSF NexGen sequencing was negative. She was admitted to [facility] on June 25, 2023 for obstructed bowel. She had abdominal surgery and at the time the GEOLOGICAL ENGINEERING TEACHER shunt was externalized. Prior to going into the hospital, she was walking with a cane or even without it. When she left the hospital, she was using a walker mainly for balance. She could stand up and get to the bathroom by herself. At the end of July, she developed weakness in her BLE. When she goes to turn to stand up, her legswill involuntarily flex and the hip and knee and dorsiflex at the foot. This also happens when she is laying flat and therapists will have to help her straighten her legs. She has no control over this. It does hurt when this happens in her knee area. This has slowly been getting worse since July. T he legs are also weak, R>L, and the right leg will drag when she walks. She cannot recall if similar symptoms happened when she first developed hydrocephalus as she was encephalopathic at the time, but she did not have these issues afterwards. She did not have any memory issues or urinary issues though she has a urostomy. No other neurologicsymptoms, except her right eye was 20/40 and was previously 20/20 when she went to the eye doctor recently. She saw Dr. Oconnor on September 03 who referred her to see us and ordered a CT head. CT is scheduled at the end of September. Movement Disorders Medications Schedule - as of the start of the visit: Medications Questionnaires In addition, the following areas that may be affected by abnormal involuntary movements were evaluated: Daily activities Difficulties with eatin (none) Difficulties in dressing: Yes (slight) Difficulties with hygiene activities: 0 (none) Difficulties with handwritin (none) Difficulties with doing hobbies and other activities: Yes (severe) Difficulties turning in bed: Yes (slight) Difficulties getting out of bed, car or chair: Yes (mild) Tremors/Gait/Balance Shaking or tremors: 0 (none) Walking and balance problems: Yes (moderate) Number of falls in the Last Month: 3 Gait freezin (none) Autonomic/Pain Lightheadeness on standin (none) Urinary problems: 0 (none) Constipation problems: 0 (none) Pain and other sensations: Yes (mild) Speech/Swallowing Speech problems: 0 (none) Droolin (none) Chewing and swallowing problems: 0 (none) Sleep/Fatigue Sleep problems: Yes (slight) Daytime sleepiness: 0 (none) Fatigue: Yes (slight) Review of Systems ALLERGIES Allergen Reactions Demeral [Meperidine] GI Upset Nausea, pt states room spins Flexeril [Cyclobenz* Hives Versed [Midazolam] Mental Status Change Current Outpatient Medications Medication Sig NOXAFIL 100 mg tablet Take 3 tablets by mouth every afternoon. metoprolol succinate ER (TOPROL XL) 100 mg Take 1 tablet by mouth every 12 hours 6am/6pm. insulin lispro (HUMALOG U-100 INSULIN) 100 unit/mL injection Inject 0-5 units subcutaneously at bedtime. <110 Give 0 units 111-150 Give 0 units 151-200 Give 1 unit 201-250 Give 2 units 251-300 Give 3 units 301-350 Give 4 units 351-400 Give 5 units >400 give 5units and notify provider. glucagon (BAQSIMI) 3 mg/actuation nasal spray Use 1 [place] in the nose as needed. acetaminophen (TYLENOL) 325 mg tablet Take 2 tablets by mouth every 6 hours as needed for pain. fexofenadine (ALESSIO) 180 mg tablet Take by mouth. PRN MAGNESIUM ORAL Take 400 mg by mouth once daily. (Patient not taking: Reported on 09/18/2023) No current facility-administered medications for this visit. Past Medical and Surgical History: has a past medical history of Asthma (02/16/2021), Bladder cancer (HCC) (02/2021), Diabetes mellitus type 1 (HCC) (04/13/2021), HTN (hypertension) (02/16/2021), Neoplasm of bladder (02/16/2021), Obesity (02/16/2021), and Palpitations (02/16/2021). has a past surgical history that includes past surgical history of; past surgical history of; past surgical history of (02/18/2021); cysto.panendo (05/25/2021); removal of bladder & nodes; vaginal hysterectomy; exploratory of abdomen (12/17/2021); and cystectomy w/bi pelvic lymphadenectomy (04/2021). Social History Tobacco Use Smoking status: Never Smokeless tobacco: Never Vaping Use Vaping Use: Never used Substance Use Topics Alcohol use: Not Currently Drug use: Never Family History: family history is not on file. Objective Vital Signs: BP 113/50 (BP Site: Left Arm, BP Position: Sitting, BP Cuff Size: Regular Adult) Pulse 74 SpO2 99% Orthostatic Vitals: None for this encounter No LMP recorded. Patient has had a hysterectomy. There is no height or weight on file to calculate BMI. General Physical Examination: General: Awake, alert, interactive, no acute distress, good nutritional status, normal development,well-kept General Neurological Examination: Neurological Exam Mental Status Alert. Oriented to person, place and time. Cranial Nerves CN II: Right normal visual field. Left normal visual field. CN III, IV, : Extraocular movements intact bilaterally. No nystagmus. Normal smooth pursuit. CN V: Facial sensation is normal. CN VII: Full and symmetric facial movement. CN VIII: Hearing is normal. CN IX, X: Palate elevates symmetrically CN XI: Shoulder shrug strength is normal. CN XII: Tongue midline without atrophy or fasciculations. Motor Normal muscle bulk throughout. Increased muscle tone. Spasticity in LLE . The following abnormal movements were seen: Triple flexor posturing in BLE triggered by movement Spasm of right LE during exam. No pronator drift. Right Left Shoulder abduction 5 5 Elbow flexion 5 5 Elbow extension 5 5 Finger flexion 5 5 Hip flexion 4 4 Hip extension 5- 5- Knee flexion 4- 4 Knee extension 4 4 Plantarflexion 4+ 4+ Dorsiflexion 4- 4 Sensory Light touch abnormality: Diminished in BLE compared to upper extremities (baseline diminished sensation below mid thorax since meningitis). Reflexes Right Left Brachioradialis 2+ 2+ Biceps 2+ 2+ Patellar 3+ 3+ Achilles 2+ 2+ Right Plantar: upgoing Left Plantar: upgoing Right pathological reflexes: Rhea's absent. Tromner absent. Left pathological reflexes: Rhea's absent. Tromner absent. Coordination [id number], rapid alternating movements and [id number] normal bilaterally without dysmetria. Gait Casual gait: Wide stance. Reduced stride length. Spastic gait. Uses walker Spasms in legs upon standing Takes a few minutes to fully extend at hips and knee joints, but not able to full extend. Movement Disorders Scales Performed: NA Assessment and Plan: Assessment Ms. 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 She developed progressive weakness and involuntary movements in BLE. On exam, patienthas spasticity and triple flexion in BLE in addition to weakness and hyperreflexia. Findings are concerning for worsening hydrocephalus, especially given that her CT head in July showed larger ventricles compared to prior MRI. Another possibility is recurrent infection so we will get full neuro axis MRI to evaluate. The following are the current problems noted and addressed during this visit: Other hydrocephalus (hcc) Hydrocephalus, adult (hcc) (primary encounter diagnosis) Meningitis, fungal Weakness of both lower extremities Spasticity Plan 09/18/2023 Visit: Lower extremity weakness and spasticity - Get MRI brain and full spine to look for hydrocephalus vs infection We will let Marlene and Dr. Oconnor know our thoughts We will also send a message to Dr. Mccarty to let him know as well Continue to work with physical therapy Interested in clinical research? Not currently Updated Movement Disorders Medication Schedule: Medications Thank you for allowing me to be part of the clinical care of this patient! I look forward to continued participation in the patient s care with you. Please do not hesitate to call with any questions. Sincerely, Lex Ervin MD Movement Fellow STAFF NOTE: I have seen and evaluated the patient and discussed the case with the fellow. I agree with the assessment and plan as documented in the fellow s note. Any necessary changes made by me and note reflects my opinion. Tonie Rosado M.D. Clinical Heel Stainer, [facility] Medicine [facility] Staff, [facility] Neurological [place] [facility] Movement Disorders Section Medical Decision Making: Problems: Moderate: New problem with uncertain prognosis Data: Unique source(s) for external note(s) reviewed: 2 Unique test result(s) reviewed: 3+ Unique test(s) ordered: 3+ Medical Decision Making Level: 4 - Moderate documented in this encounterThe [facility]06-01-2024 History of Present illness Narrative* Zheng, September,N.STABLE HELPER - 02/01/2024 3:31 PM EDT Images from the original note were not included. Connected Care Unit Progress Note Patient Name: Chikis Tobar Patient Facility: [facility] Admit Date 11/09/2023 Level of Care: Skilled SNF Attending: Amelia Parisi D.O. Service Date: 02/01/2024 Code Status: Chief Complaint: Evaluation regarding mgmnt of acute and chronic conditions in skilled setting ASSESSMENT AND PLAN ASSESSMENT/PLAN: 1. Obstructive hydrocephalus (HCC) - ICD9: 331.4, ICD10: G91.1 (primary diagnosis) 2. 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 Unable to lift LLE. Pt spoke with Neuro Dr Vargas via phone during my visit. and reviewed same. Recently had pred taper. -c/w baclofen and oxycodone prn -c/w posaconazole -c/w PT/OT -f/u with Neuro and Physical Medicine and Rehab on 02/10 3. Bilateral lower extremity edema - ICD9: 782.3, ICD10: R60.0 Had been given lasix MWF x 7 days (01/07 - 01/14) and applied MARCIE hose with improvement. 01/16: Lasix changed to MWF 01/28: BLE edema returned but was non-pitting. Lasix changed from every other day to daily. 01/31: BLE with 2+ pitting edema (feet to thighs). Pt reports legs feel like concrete. In addition she has a Left heel wound which is wrapped with kerlix. She is unable to ambulate. Last ECHO was ~ 2019 per patient. Her Account Group Supervisor is in [place]. Has ileal conduit urinary diversion (radical cystectomy w/ creation of ileal conduit in 04/2021 for urothelial carcinoma). -c/w lasix 20 mg po daily + K -elevate legs when possible -c/w Lisinopril, Toprol, Lasix -Establish with a local battery assembler dry cell - may need echo [facility] Appointments for Next 60 Days Date Time Provider Location Dept Phone 02/06/2024 11:00 AM RUDDY GUPTA [phone] 02/11/2024 9:00 AM DARIEN STRICKLAND S Bldg [phone] 02/11/2024 3:30 PM NOEL DANIELS [facility] [phone] 02/14/2024 6:[address] [facility] [phone] 03/21/2024 11:00 AM REGGIE BUTLER [facility] S Bldg [phone] HPI: (Per DC Summary) 11/07/2023: admit: 10/20/2023 discharge 11/07/2023 58-year-old female with PMHx signficant for T1DM cb/ DKA, urothelial carcinoma of the bladder s/p radical cystectomy and ileal conduit c/b SBO (Dec 2021), HTN, chronic sinusitis, asthma, persistent encephalopathy and hydrocephalus. 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 She was followed by ID at [facility] and was on posaconazole. She is s/p shunt externalization at [facility] (06/27/23) during abdominal surgery for SBO and eventual VPS explantation (07/10/23). She was o riginally scheduled for shunt reinternalization with Dr. Oconnor on 11/20/23. She fell due to leg spasms and presented to OSH ED and admitted on 10/07/23. Found to have L tibial fx s/p intramedullary nailDr. Darleen at [facility] (10/08/23). She was then transferred to [facility] [place]. She is s/p VPS reimplantation by Dr. Oconnor and Dr. Evans on 10/14. Intraoperative CSF cultures without growth. Plan to continue posaconazole at least through end of this year. She isto start asa bid on 10/24 for dvt ppx. Seen by WOCN for wounds as below - Coccyx : healed. -Left posterior heel: POA -Left anterior foot : Deep Tissue Pressure Injury, acquired While in the ARU, pt received physical therapy for range of motion, transfer training, endurance/ balance, fall prevention, and gait training with appropriate assistive devices, occupational therapy for activity of daily living/equipment/ functional transfer evaluation and training, and speech thera py for language evaluation and speech re-education. Team conferences were held to monitor progress and tailor program to patients needs. Patient had appropriate pain management, bowel management, sleep management, GI and DVT prophylaxis. Pt was stable throughout ARU course without major medical comp lication. Pt participated in all therapies and although with significant gradual improvement, would benefit from continuing skilled therapies and nursing at SNF prior to returning home. 10/23 stop robaxin, add zanaflex 4mg at bedtime and 2mg tid prn 10/27 zanaflex scheduled qid 10/28 d/w IM get f/u head CT d/t unresolved spasticity with pain 10/30 Shunt adjusted by Neurosurg from 6 to 7 11/04 add gabapentin 300mg at bedtime Interval HPI: 02/01/2024: Examined patient in wheel chair in her room at [facility]. Pt is A&O x 3, pleasant and very good historian. C/o BLE spasms/tightness. Unable to lift LLE. Pt spoke with Neuro Dr Vargas via phone during my visit. and reviewed same. Recently had pred taper. On baclofen. Next Neuro andPhysical Medicine rehab appointemnts therese scheduled 02/10. Pt with BLE with 2+ pitting edema (feet to thighs). Pt reports legs feel like concrete. In additionshe has a Left heel wound which is wrapped with kerlix. She is unable to ambulate. Last ECHO was ~ 2019 per patient. Her Account Group Supervisor is in [place]. Recommend establish local battery assembler dry cell - may need ECHO. C/w Lasix daily, elevated legs. Wearing MARCIE hose on RLE. Has heel ulcer with kelrix dressing. Has ileal conduit with indwelling catheter, urine clear yellow with (expected) white sediment. PAST MEDICAL HISTORY Diagnosis Date Asthma 02/16/2021 Bladder cancer (HCC) 02/2021 urothelial carcinoma Diabetes mellitus type 1 (HCC) 04/13/2021 diagnosed at age 6 HTN (hypertension) 02/16/2021 Neoplasm of bladder 02/16/2021 Obesity 02/16/2021 Palpitations 02/16/2021 SUBJECTIVE: Review of Systems Constitutional: Positive for activity change. Negative for chills and fever. HENT: Negative. Eyes: Negative. Respiratory: Negative. Cardiovascular: Positive for palpitations and leg swelling. H/o arrythmia, on Toprol Gastrointestinal: Negative. Endocrine: Negative. Type 1 diabetes with insulin pump Genitourinary: H/o bladder (urothelial) cancer, s/p cystectomy with creation of ileal conduit urinary diversion. Indwelling trujillo via IC. Musculoskeletal: Positive for gait problem. BLE muscle spacticity/tightness due to hydrocephalus w/ GEOLOGICAL ENGINEERING TEACHER shunt Skin: Negative. Allergic/Immunologic: Negative. Neurological: Positive for weakness. Hematological: Negative. Psychiatric/Behavioral: Negative. Medications: Medications listed in [facility] during SNF admission may not be current. Refer to facility record. Patient records, current medications, most recent labs, family/social history (unchanged) Reviewed.Refer to facility records. OBJECTIVE: Labs/diagnostics: most recent labs (01/29) reviewed Vital Signs: reviewed Physical Exam: Physical Exam Vitals reviewed. Constitutional: General: She is not in acute distress. Appearance: She is not toxic-appearing. HENT: Head: Normocephalic. Right Ear: External ear normal. Left Ear: External ear normal. Nose: Nose normal. Mouth/Throat: Pharynx: Oropharynx is clear. Eyes: Conjunctiva/sclera: Conjunctivae normal. Cardiovascular: Rate and Rhythm: Normal rate. Pulses: Normal pulses. Pulmonary: Effort: Pulmonary effort is normal. Breath sounds: Normal breath sounds. Abdominal: General: There is no distension. Palpations: Abdomen is soft. Tenderness: There is no abdominal tenderness. Comments: Insulin pump Genitourinary: Comments: ileal conduit with indwelling trujillo, drains yellow urine with expected white sediment. Musculoskeletal: Cervical back: Normal range of motion. Right lower leg: Edema present. Left lower leg: Edema present. Comments: Muslce spacticity BLE, unable to lift LLE 2+ pitting BLE edema feet to thighs Skin: General: Skin is warm and dry. Capillary Refill: Capillary refill takes less than 2 seconds. Findings: Lesion present. Comments: L heel ulcer wrapped in kerlix, no surrounding erythema. Neurological: Mental Status: She is alert and oriented to person, place, and time. Motor: Weakness present. Gait: Gait abnormal. Comments: muscle tension/spacticity and fatigue BLE. Unable to ambulate. Psychiatric: Mood and Affect: Mood normal. Behavior: Behavior normal. Thought Content: Thought content normal. Judgment: Judgment normal. POC discussed with appropriate parties and nursing staff. Electronically signed by Fidelia Calzada APRN.MARIS documented in this encounterThe [facility] System06-01-2024 History of Present illness Narrative* Fidelia Calzada APRN.MARIS - 02/07/2024 9:46 PM EDT Images from the original note were not included. Connected Care Unit Progress Note Patient Name: Chikis Tobar Patient Facility: [facility] Admit Date 11/09/2023 Level of Care: Skilled SNF Attending: Amelia Parisi D.O. Service Date: 02/07/2024 Code Status: Chief Complaint: Evaluation regarding mgmnt of acute and chronic conditions in skilled setting ASSESSMENT AND PLAN ASSESSMENT/PLAN: 1. Obstructive hydrocephalus (HCC) - ICD9: 331.4, ICD10: G91.1 (primary diagnosis) 2. 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 Pt had worsening symptoms and ventricles had increased. s/p VPS reimplantation on 10/14, intraoperative CSF cultures without growth 01/31: C/o BLE spasms/tightness. Unable to lift LLE. Pt spoke with Neuro Dr Vargas via phone during my visit. and reviewed same. Recently had pred taper. 02/06: Continues to have BLE spasms, increased symptoms at night per patient. Being followed by Neuro at [facility] and recently had 1/2 dose of Botox. Currently managing spasms with Baclofen w/suboptimal control. Has Neurology video visit on 02/10 for re-evaluation of spasms. Being followed by ID, Dr Bradley, for antifungal. -c/w baclofen and oxycodone prn -c/w posaconazole -c/w PT/OT -f/u with Neuro and Physical Medicine and Rehab on 02/10 -f/u with ID as recommended 3. Bilateral lower extremity edema - ICD9: 782.3, ICD10: R60.0 Had been given lasix MWF x 7 days (01/07 - 01/14) and applied MARCIE hose with improvement. 01/16: Lasix changed to MWF 01/28: BLE edema returned but was non-pitting. Lasix changed from every other day to daily. 01/31: BLE with 2+ pitting edema (feet to thighs). Pt reports legs feel like concrete. In addition she has a Left heel wound which is wrapped with kerlix. She is unable to ambulate. Last ECHO was ~ 2019 per patient. Her Account Group Supervisor is in [place]. Has ileal conduit urinary diversion (radical cystectomy w/ creation of ileal conduit in 04/2021 for urothelial carcinoma). 02/06: No change. -c/w lasix 20 mg po daily + K -elevate legs when possible -c/w Lisinopril, Toprol, Lasix -Establish with a local battery assembler dry cell - may need echo [facility] Appointments for Next 60 Days Date Time Provider Location Dept Phone 02/07/2024 1:30 PM SHARAN DOMINGUEZ [facility] [phone] 02/11/2024 9:00 AM DARIEN STRICKLAND [facility] [phone] 02/11/2024 3:30 PM NOEL DANIELS [place] [facility] [phone] 02/14/2024 6:[address] [facility] [phone] 03/21/2024 11:00 AM REGGIE BUTLER [facility] S Bld[facility] [phone] HPI: (Per DC Summary) 11/07/2023: admit: 10/20/2023 discharge 11/07/2023 58-year-old female with PMHx signficant for T1DM cb/ DKA, urothelial carcinoma of the bladder s/p radical cystectomy and ileal conduit c/b SBO (Dec 2021), HTN, chronic sinusitis, asthma, persistent encephalopathy and hydrocephalus. 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 She was followed by ID at [facility] and was on posaconazole. She is s/p shunt externalization at [facility] (06/27/23) during abdominal surgery for SBO and eventual VPS explantation (07/10/23). She was o riginally scheduled for shunt reinternalization with Dr. Oconnor on 11/20/23. She fell due to leg spasms and presented to OSH ED and admitted on 10/07/23. Found to have L tibial fx s/p intramedullary nailDrGiancarlo Morejon at [facility] (10/08/23). She was then transferred to [facility] [place]re[place]. She is s/p VPS reimplantation by Dr. Oconnor and Dr. Evans on 10/14. Intraoperative CSF cultures without growth. Plan to continue posaconazole at least through end of this year. She isto start asa bid on 10/24 for dvt ppx. Seen by WOCN for wounds as below - Coccyx : healed. -Left posterior heel: POA -Left anterior foot : Deep Tissue Pressure Injury, acquired While in the ARU, pt received physical therapy for range of motion, transfer training, endurance/ balance, fall prevention, and gait training with appropriate assistive devices, occupational therapy for activity of daily living/equipment/ functional transfer evaluation and training, and speech thera py for language evaluation and speech re-education. Team conferences were held to monitor progress and tailor program to patients needs. Patient had appropriate pain management, bowel management, sleep management, GI and DVT prophylaxis. Pt was stable throughout ARU course without major medical comp lication. Pt participated in all therapies and although with significant gradual improvement, would benefit from continuing skilled therapies and nursing at SNF prior to returning home. 10/23 stop robaxin, add zanaflex 4mg at bedtime and 2mg tid prn 10/27 zanaflex scheduled qid 10/28 d/w IM get f/u head CT d/t unresolved spasticity with pain 10/30 Shunt adjusted by Neurosurg from 6 to 7 11/04 add gabapentin 300mg at bedtime Interval HPI: 02/01/2024: Examined patient in wheel chair in her room at [facility]. Pt is A&O x 3, pleasant and very good historian. C/o BLE spasms/tightness. Unable to lift LLE. Pt spoke with Neuro Dr Vargas via phone during my visit. and reviewed same. Recently had pred taper. On baclofen. Next Neuro andPhysical Medicine rehab appointemnts oare scheduled 02/10. Pt with BLE with 2+ pitting edema (feet to thighs). Pt reports legs feel like concrete. In additionshe has a Left heel wound which is wrapped with kerlix. She is unable to ambulate. Last ECHO was ~ 2019 per patient. Her Account Group Supervisor is in [place]. Recommend establish local battery assembler dry cell - may need ECHO. C/w Lasix daily, elevated legs. Wearing MARCIE hose on RLE. Has heel ulcer with kelrix dressing. Has ileal conduit with indwelling catheter, urine clear yellow with (expected) white sediment. 02/06: Examined patient in wheel chair in room at [facility]. A&O x 3. Endorses poorly controlled BLE spasms which are worse at night . She spoke with Neurology and is taking baclofen. She hasvideo visit with Neuro on 02/10. No fevers/chills. Working with therapy and involved in activities at [facility]. Tolerating diet, Ileal conduit patient with yellow urine with expected sediment. Good UOP. PAST MEDICAL HISTORY Diagnosis Date Asthma 02/16/2021 Bladder cancer (HCC) 02/2021 urothelial carcinoma Diabetes mellitus type 1 (HCC) 04/13/2021 diagnosed at age 6 Fracture of tibia 09/2023 HTN (hypertension) 02/16/2021 Meningitis 2022 Patient reported shunt placement (with subsequent removal and re-placement in September,) Neoplasm of bladder 02/16/2021 Obesity 02/16/2021 Palpitations 02/16/2021 SUBJECTIVE: Review of Systems Constitutional: Positive for activity change. Negative for chills and fever. HENT: Negative. Eyes: Negative. Respiratory: Negative. Cardiovascular: Positive for palpitations and leg swelling. H/o arrythmia, on Toprol Gastrointestinal: Negative. Endocrine: Negative. Type 1 diabetes with insulin pump Genitourinary: H/o bladder (urothelial) cancer, s/p cystectomy with creation of ileal conduit urinary diversion. Indwelling trujillo via IC. Musculoskeletal: Positive for gait problem. BLE muscle spacticity/tightness due to hydrocephalus w/ GEOLOGICAL ENGINEERING TEACHER shunt Skin: Negative. Allergic/Immunologic: Negative. Neurological: Positive for weakness. Hematological: Negative. Psychiatric/Behavioral: Negative. Medications: Medications listed in Epic during SNF admission may not be current. Refer to facility record. Patient records, current medications, most recent labs, family/social history (unchanged) Reviewed.Refer to facility records. OBJECTIVE: Labs/diagnostics: most recent labs (01/29) reviewed Vital Signs: vitals not documented for this encounter Physical Exam: Physical Exam Vitals reviewed. Constitutional: General: She is not in acute distress. Appearance: She is not toxic-appearing. HENT: Head: Normocephalic. Right Ear: External ear normal. Left Ear: External ear normal. Nose: Nose normal. Mouth/Throat: Pharynx: Oropharynx is clear. Eyes: Conjunctiva/sclera: Conjunctivae normal. Cardiovascular: Rate and Rhythm: Normal rate. Pulses: Normal pulses. Pulmonary: Effort: Pulmonary effort is normal. Breath sounds: Normal breath sounds. Abdominal: General: There is no distension. Palpations: Abdomen is soft. Tenderness: There is no abdominal tenderness. Comments: Insulin pump Genitourinary: Comments: ileal conduit with indwelling trujillo, drains yellow urine with expected white sediment. Musculoskeletal: Cervical back: Normal range of motion. Right lower leg: Edema present. Left lower leg: Edema present. Comments: Muslce spacticity BLE, unable to lift LLE 2+ pitting BLE edema feet to thighs Skin: General: Skin is warm and dry. Capillary Refill: Capillary refill takes less than 2 seconds. Findings: Lesion present. Comments: L heel ulcer wrapped in kerlix, no surrounding erythema. Neurological: Mental Status: She is alert and oriented to person, place, and time. Motor: Weakness present. Gait: Gait abnormal. Comments: muscle tension/spacticity and fatigue BLE. Unable to ambulate. Psychiatric: Mood and Affect: Mood normal. Behavior: Behavior normal. Thought Content: Thought content normal. Judgment: Judgment normal. Some elements copied from the note on 02/01/2024, the elements have been updated and all reflect current decision making from today, February 07, 2024 POC discussed with appropriate parties and nursing staff. Electronically signed by Fidelia Calzada APRN.MARIS documented in this encounterThe [facility] System06-01-2024 History of Present illness Narrative* Fidelia Calzada APRN.MARIS - 02/15/2024 6:32 PM EDT Images from the original note were not included. Connected Care Unit Discharge Summary SNF Connected Care Program [facility] [address], [address]) [place] [address] CONNECTED CARE DISCHARGE SUMMARY Service Date: 02/15/2024 Admission Date: 11/07/2023 Discharge Date: 02/15/2024 Facility: [facility] Level of Care: Skilled SNF Attending: Amelia Parisi D.O. Connected Care Primary Care Physician: Kalli Simons MD Principal Diagnosis: Obstructive hydrocephalus (hcc) (primary encounter diagnosis) Fungal meningitis S/p vp patient shunt Bilateral lower extremity edema Essential hypertension Diabetes mellitus type 1, controlled, without complications (hcc) Malignant neoplasm of urinary bladder, unspecified site (hcc) Subacute Course: Per DC Summary (11/07/2023): This is a 58-year-old female with PMHx signficant for T1DM cb/ DKA, urothelial carcinoma of the bladder s/p radical cystectomy and ileal conduit c/b SBO (Dec 2021), HTN, chronic sinusitis, asthma, persistent encephalopathy and hydrocephalus. 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 She was followed by ID at [facility] and was on posaconazole. She is s/p shunt externalization at [facility] (06/27/23) during abdominal surgery for SBO and eventual VPS explantation (07/10/23). She was originally scheduled for shunt reinternalization with Dr. Oconnor on 11/20/23. She fell due to leg spasms and presented to [facility] ED and admitted on 10/07/23. Found to have L tibial fx s/p intramedullary nail Dr. Morejon at [facility] (10/08/23). She was then transferred to [facility] for [place] reimplantation. She is s/p VPS reimplantation by Dr. Oconnor and Dr. Evans on 10/14. Intraoperative CSF cultures without growth. Plan to continueposaconazole at least through end of this year. Seen by WOCN for wounds as below - Coccyx : healed. -Left posterior heel: POA -Left anterior foot : Deep Tissue Pressure Injury, acquired Pt improved at Acute rehab however was recommended snf before returning home. She was followed with Neurology for shunt adjustments due to unresolved spacticity and pain. During SNF admission, patient's underlying comorbidities were managed appropriately while addressing any acute issues that were present. Pt participated in PT/OT without complications. No falls were reported during SNF admission. Any changes in condition or complications during admission were treated appropriately. She was treated w Robaxin and Gabapentin was started on 11/04 at snf for BLE spasms. She continued to f/u with outpatient Neuro for hydrocephalus with BLE weakness/ongoing disabling spacticity managed w/ Cert[employer] valve shunt adjustments. She developed ulcers from ortho bbot and was followed by Wound team. Was taken off posaconazole x 3 weeks on 11/16/23 to see if spasticity is a side effect. Started Medrol dose pack x 1 week on 11/28 w/ no improvement. 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 Robaxin and medrol were dc'd. Gabapentin was increased, started baclofen 10-10-20 mg. ID restarted posaconazole on 12/08/2023. Spasms not a side effect of the drug. Given pred taper on 12/12 with some improvement. Developed severe leg edema, thought to be due to gabapentin which was stopped by Neurology. Tried phenol nerve blocks for bilateral obterator nerve AND 1st trial of Botox injection 275 units on 01/11/2024 w/ some positive results for about 2 weeks. Given lasix 20 mg daily x 7 days (started 01/07) for BLE edema w/ some improvement by 01/09 and had minimal edema by end of Lasix therapy on 01/14. Also s/p nerve block. Edema recurred by 01/17. Started Lasix 20 mg po // and changed to daily on 01/28. May need referral to lymphedema clinic. Discharge on 01/22 was held. Since patient restarted on Lasix she was concerned about getting a repeat Echo (Last Echo was ~ 2019 w/ her Account Group Supervisor in [place]). Pt is on ASA, Lisinopril, Toprol, Lasix. Recommended that patient establishes with a local battery assembler dry cell . Echo was done ( ~ 02/04). Pt has made an appointment with Cardiology but couldn't get in until 05/29/2024. Pt states she will forward the ECHO to her Account Group Supervisor in [place] in the meantime. Was evaluated in ED on 02/06 due to blurred vision. Work up negative except for possible urine infection. Was treated in ED with Rocephin x 1 and Rx Bactrim x 7 days. Recommended outpatient f/u with neurosurgery for possible shunt adjustment. Was discharged from ED back to snf. Had neurosurgery f/u on 02/07: - out the shunt at 8 and f/u in 1 week for symptom changes. Had neurosurgery f/u on 02/12: Plan to follow-up in 1 month with repeat CTH. Refer to neuromuscular specialist for spasms in bilateral lower extremities not explained by hydrocephalus/shunt . Tests/Procedures: ECHO 02/04. routine labs Transitions of Care Critical Issues: Imaging follow-up: Yes, repeat CTH as per NSGY Lab Monitoring Needed: Yes, BMP within 1 week to monitor electrolytes. Specialists Follow-Up: Yes, : -f/u with Neurology on 03/18 -f/u with NSGY 04/10 -f/u with Cardiology 05/29 -f/u with Endo 07/01 FOLLOW - UP with PCP within 1 week from discharge. Discharge Physical Exam: Physical Exam Constitutional: General: She is not in acute distress. Appearance: She is not toxic-appearing. HENT: Head: Normocephalic. Right Ear: External ear normal. Left Ear: External ear normal. Nose: Nose normal. Mouth/Throat: Pharynx: Oropharynx is clear. Eyes: Conjunctiva/sclera: Conjunctivae normal. Cardiovascular: Rate and Rhythm: Normal rate. Pulses: Normal pulses. Pulmonary: Effort: Pulmonary effort is normal. Breath sounds: Normal breath sounds. Abdominal: General: There is no distension. Palpations: Abdomen is soft. Tenderness: There is no abdominal tenderness. Comments: Insulin pump Genitourinary: Comments: ileal conduit with indwelling trujillo, drains yellow urine with expected white sediment. Musculoskeletal: Cervical back: Normal range of motion. Right lower leg: Edema present. Left lower leg: Edema present. Comments: Muslce spacticity BLE, unable to lift LLE 2+ pitting BLE edema feet to thighs Skin: General: Skin is warm and dry. Capillary Refill: Capillary refill takes less than 2 seconds. Findings: Lesion present. Comments: L heel ulcer wrapped in kerlix, no surrounding erythema. Neurological: Mental Status: She is alert and oriented to person, place, and time. Motor: Weakness present. Gait: Gait abnormal. Comments: muscle tension/spacticity and fatigue BLE. Unable to ambulate. Psychiatric: Mood and Affect: Mood normal. Behavior: Behavior normal. Thought Content: Thought content normal. Judgment: Judgment normal. Discharge Condition: Improved Discharge Disposition: Home/Community Discharge Medications: sulfamethoxazole-trimethoprim (BACTRIM DS) 800-160 mg per tablet Take 1 tablet by mouth two times aday for 7 days. furosemide (LASIX) 20 mg tablet Take 20 mg by mouth once daily. oxyCODONE ir (OXYIR) 5 mg capsule Take 5 mg by mouth every 4 hours as needed for pain. baclofen 5 mg tablet Take 10 mg by mouth. 1 tablet in morning, 1 tablet in the afternoon, 2 tabletsat night. 1 tablet at bedtime PRN cyanocobalamin (VITAMIN B-12) 1,000 mcg tab Take 1,000 mcg by mouth. glucagon 3 mg/actuation nasal spray (BAQSIMI) ondansetron orally disintegrating (ZOFRAN ODT) 4 mg disintegrating tablet Take 4 mg by mouth every 6 hours as needed. DULCOLAX, BISACODYL, RECTAL by RECTAL route once daily as needed. lisinopril (ZESTRIL) 40 mg tablet Take 40 mg by mouth once daily. acetaminophen (TYLENOL) 650 mg suppository 650 mg by RECTAL route every 4 hours as needed for pain or fever (specify temp.). dextrose 40 % gel Take 15 g by mouth as needed. insulin aspart U-100 (NOVOLOG) 100 unit/mL Use via insulin pump Max daily dose 100 units, DX: E10.65 acetaminophen (TYLENOL) 325 mg tablet 2 tablets by ORAL/FEEDING TUBE route every 6 hours as needed for pain. aspirin, enteric coated (ADULT LOW DOSE ASPIRIN) 81 mg EC tablet Start ASA 81 mg BID on 10/24 Patient should start on October 25, 2023. metoprolol succinate ER (TOPROL XL) 100 mg Take 1 tablet by mouth every 12 hours at 6 am and [address] (NOXAFIL) 100 mg tablet Take 3 tablets by mouth once daily. senna-docusate (SENNA-S) 8.6-50 mg per tablet 1 tablet by ORAL/FEEDING TUBE route two times a day. [DISCONTINUED] lactobacillus rhamnosus (CULTURELLE) 10 billion cell capsule Take 1 capsule by mouthonce daily. Functional Status: Modified independent + [facility] Scheduled Future Appointments: Future Appointments Date Time Provider Department Center 03/18/2024 9:00 AM Shelbi Ramos MD NN[facility] Rej 03/21/2024 11:00 AM Reggie Butler MD N[facility] Mn S Bldg 04/10/2024 1:[address] 2 MAIN QB (I-STAT) [facility] Mn [facility] 04/10/2024 2:00 PM Marlene Cordero PA-C [facility] Mn S Bldg 05/29/2024 1:00 PM Ruthy Jesus MD [facility] 07/01/2024 4:00 PM Katiana Huang APRN.STABLE HELPER ENDOAV Rej 09/03/2024 2:40 PM Ruddy Gupta MD ENDOAV Rej 09/16/2024 10:45 AM LAB MAIN Q2-1 LBQ2-1 Mn Q Bldg 09/16/2024 11:[address] 2 MAIN QB (I-STAT) [facility] Mn Q Bldg Prior to discharge, staff to schedule follow up appointment for patient to see PCP within 7-10 daysof discharge. I spent <30 minutes in the visit, with more than 50% of the total gjqg-hj-lvqa time of the visitin counseling / coordination of care. Fidelia Calzada APRN.STABLE HELPER documented in this encounterThe [facility] System05-29-2024 Telephone encounter Note * Telephone Encounter - Yuridia Martinez RN - 09/12/2023 5:28 PM EDT Updated supply form faxed to [employer] as pt and I previously discussed. Fax confirmation received. [employer]: [facility]05-29-2024 Miscellaneous Notes* Telephone Encounter - Yuridia Martinez RN - 09/12/2023 5:28 PM EDT Updated supply form faxed to [employer] as pt and I previously discussed. Fax confirmation received. [employer]: * Telephone Encounter - Kcaie Pettit, PIPPA - 09/12/2023 10:59 AM EDT Patient would like to give number to her supply company [employer] [phone] Call back# [phone] Thank you, Kacie Pettit Coordinator II WOC nursing documented in this encounterThe [facility]health System05-29-2024 History of Present illness Narrative* Peterson Gonsalez MD - 09/12/2023 1:00 PM EDT [facility] ESTABLISHED PATIENT OFFICE VISIT REASON FOR VISIT: Follow up HPI 58 year old female presenting for follow-up of [...] (7Fr x 24cm JJ) 12/16/[address] Montez and myself. 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 Extensive work-up was performed, including multiple LPs, meningeal biopsy (positive for fungal hyphae), GEOLOGICAL ENGINEERING TEACHER shunt placement with clinical improvement with this an antifungal therapy. CT A/P w/IV contrast 06/15/2022 - [facility] CT Chest 06/15/2022 - [facility] CTU 12/25/2022 - New trace pelvic ascites. 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 Otherwise no evidence of intra- abdominal/pelvic metastases. CT Chest 12/25/2022 -Interval resolution of the previously noted centrilobular groundglass opacities. New patchy and streaky scarring/discoid atelectasis in the left lower lobe CTU 06/18/2023 - No evidence of new intra-abdominal/pelvic abnormalities Admitted at [facility] 06/25/2023 for SBO s/p ex lap, RONALD, bilateral ureteral reimplantation with stent placement (removed 07/26/2023). Had GEOLOGICAL ENGINEERING TEACHER shunt removed during admission and noticed balance issues, falls. Is scheduled to have shuntreplaced here in September. Walks with cane, unable to be as mobile as she would like. Feels function isdeclining. Saw stoma nursing today. Pouching without issue. PATHOLOGY: Ureter resection 12/17/2021: A. Ureter, right, [...] LABS: Creatinine Date Value Ref Range Status 05/10/2023 0.67 0.58 - 0.96 mg/dL Final 03/19/2023 0.64 0.58 - 0.96 mg/dL Final 02/20/2023 0.61 0.58 - 0.96 mg/dL Final 11/15/2022 0.59 0.58 - 0.96 mg/dL Final URINALYSIS: pH, Arterial Date Value Ref Range Status 01/09/2022 7.40 7.35 - 7.45 Final Specific [address], Ur Date Value Ref Range Status 06/12/2022 [...] 0-5 /HPF 0-5 /HPF Final IMAGING: CTU 06/18/2023: IMPRESSION: 1. No evidence of new intra-abdominal/pelvic abnormalities since 12/25/22. 2. Trace pelvic ascites, decreased. 3. Interval resolution of the previously noted wall enhancement of the ileal diversion. Consider interval follow-up or direct visualization. 4. Punctate nonobstructing left renal stones. ALLERGIES: ALLERGIES Allergen Reactions Demeral [Meperidine] GI Upset Nausea, pt states room spins Flexeril [Cyclobenz* Hives Versed [Midazolam] Mental Status Change MEDICATIONS: Current Outpatient Medications Medication Sig MAGNESIUM ORAL Take 400 mg by mouth once daily. NOXAFIL 100 mg tablet take 3 tablets by mouth every day posaconazole DR (NOXAFIL) 100 mg tablet (Patient not taking: Reported on 08/30/2023) metoprolol succinate ER (TOPROL XL) 100 mg Take 1 tablet by mouth every 12 hours 6am/6pm. calcium carbonate (TUMS) 500 mg chew Take 1 tablet by mouth three times daily as needed. (Patient not taking: Reported on 05/10/2023) insulin lispro (HUMALOG U-100 INSULIN) 100 unit/mL injection Inject 0-5 units subcutaneously at bedtime. <110 Give 0 units 111-150 Give 0 units 151-200 Give 1 unit 201-250 Give 2 units 251-300 Give 3 units 301-350 Give 4 units 351-400 Give 5 units >400 give 5units and notify provider. glucagon (BAQSIMI) 3 mg/actuation nasal spray Use 1 [place] in the nose as needed. acetaminophen (TYLENOL) 325 mg tablet Take 2 tablets by mouth every 6 hours as needed for pain. fexofenadine (ALESSIO) 180 mg tablet Take by mouth. PRN No current facility-administered medications for this visit. [...] ROS was reviewed and negative. 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 History of volvulus s/p ex lap, reduction of volvulus, and right ureteral reimplantation 12/16/2021. SBO s/p ex lap, RONALD, ureteral [facility]implantation at [facility] 06/26/2023. Schedule renal US and obtain recent blood work results. Plan on surveillance imaging and labs in 1 year with VV to follow. She is having worsening symptoms from hydrocephalus, I will reach out to her neuro team about this. I spent a total of 40 minutes on the date of the service which included preparing to see the patient, [id number] patient care, completing clinical documentation, and obtaining and/or reviewing separately obtained history. Visit complexity inherent to evaluation and management associated with medical care services that serve as the continuing focal point for all needed health care services and/or with medical care services that are part of ongoing care related to a patient s single, serious condition or a complex condition. By signing my name below, I, Hector [...] care. Peterson Gonsalez MD documented in this encounterThe [facility] System05-29-2024 Telephone encounter Note * Telephone Encounter - Kacie Pettit PCNA - 09/12/2023 10:59 AM EDT Patient would like to give number to her [employer] [phone] Call back# [phone] Thank you, Kacie Pettit Coordinator II WO nursing [facility]05-29-20[facility] History of Present illness Narrative* ForYuridia perry RN - 09/12/2023 10:01 AM EDT WO Nursing Consult Topic: WOC Consultation Note Outcome: Pt to A30 for appointment with WO Nursing. She has an established urostomy. She is here today for assessment and updated supply form. Per pt, pouching has been going well. She has been wearing her current system for quite a while and is very happy with it. She recently switched from [employer] to [facility] [employer] for supplies. She needs her supply form faxed to [facility]. Pt does not have contact information for [employer]. I requested she provide us with that information and we will be happy to fax her updated supply form to them. Pt will get their information when she gets home today and call [facility] Nursing office to provide it. Once we have the info we can fax the updated supply form. Pt verbalized understanding. Next Scheduled Visit: yearly and as needed Assessment: Stoma Type: End ileal conduit Diameter: 7/8 Location: RLQ Protrusion: Budded Mucosal condition and color: Red and moist Mucocutaneous junction Intact Peristomal Skin: Clear and intact Peristomal contour: Rounded Supportive Tissue: Soft Character of output: clear yellow urine Emptying frequency per day: varies Current pouching system: One-piece Coloplast SenSura Catrachito deep convex urostomy pouch Current wearing time: 3 days- seal completely intact, system is appropriate Recommendations: Skin Care: apply stoma powder and no-sting skin sealant as needed for skin irritation Pouching System: continue same Wear Time Goal: 3-4 days Time Increment: 45 minutes GEMA Milton, RN, CWOCN For non-emergent WO Nursing patient care needs - Please place a consult via Epic under ostomy . WOC Nurse Available Hours: M-F: [phone]; Weekends & Holidays: [phone] For emergent WO Nursing patient care needs - Page #[phone], during available hours only. * Yuridia Martinez RN - 09/12/2023 9:58 [place] [address] Patient: Chikis Tobar Patient Address: [address] [id number] Preferred Gender: female Date of : 1965 Type of Stoma: End Ileal Conduit Diagnosis: Bladder Cancer C76.9 OSTOMY SUPPLY ORDER FORM Adhesive Removers: ConvaTec Esenta Wipes #357151 30 day use - 2 Boxes Coloplast Catrachito One-Piece Urostomy Pouches: #88711 Pre-Cut 30 day use - 2 Boxes Misc. Accessories: Coloplast Elastic Barrier Strips # [id number] 30 day use - 2 Boxes Powder: ConvaTec Stomahesive # 59033 30 day use - As Needed Skin Sealant: 3M Cavilon No Sting, 50/Box #3342 30 day use - 1 Box Refills: 11 Attending Physician: Dr. Gonsalez: Office [phone] For immediate authorization, please contact the physician s office. [facility] Nurse: GEMA Milton, CWOCN SIGNATURE: Yuridia Martinez RN PATIENT NAME: Chikis Tobar DATE: September 12, 2023 TIME: 9:59 AM CONTACT #: [phone] documented in this encounterThe [facility] System05-23-2024 Telephone encounter Note * Telephone Encounter - Marlene Cordero PA-C - 09/06/2023 11:03 AM EDT Call to Chikis, We discussed plan for surgery and movement visit. She is aware she is scheduled for first availableand neurology team is attempting to get her in sooner. Marlene Cordero PA-C [facility]05-23-2024 Miscellaneous Notes* Telephone Encounter - Marlene Cordero PA-C - 09/06/2023 11:03 AM EDT Call to Chikis, We discussed plan for surgery and movement visit. She is aware she is scheduled for first availableand neurology team is attempting to get her in sooner. Marlene Cordero PA-C documented in this encounterThe [facility] System05-23-2024 Telephone encounter Note * Telephone Encounter - Marlene Cordero PA-C - 09/06/2023 11:02 AM EDT Call to Chikis, steven discussed in detail. Marlene Cordero PA-C [facility] Work Phone: 1(595) 375-296205-23-2024 Miscellaneous Notes* Telephone Encounter - Marlene Cordero PA-C - 09/06/2023 11:02 AM EDT Call to steven Lucio discussed in detail. Marlene Cordero PA-C documented in this encounterThe [facility] System05-23-2024 Telephone encounter Note * Telephone Encounter - Marlene Cordero PA-C - 09/06/2023 10:48 AM EDT Call to Chikis who agreed to plan for VPS on 11/20/23 with pre-ops on 10/31/23. She is aware that shecannot take blood thinners, aspirin, or NSAIDs within 7 days of surgery and vitamins/herbals [id number] days. All questions answered. She will have [facility] scanned into system. Discussed when to present to ED if necessary. Marlene Cordero PA-C [facility] Work Phone: [phone]) 447-405205-23-2024 Miscellaneous Notes* Telephone Encounter - Marlene Cordero PA-C - 09/06/2023 10:48 AM EDT Call to Chikis who agreed to plan for VPS on 11/20/23 with pre-ops on 10/31/23. She is aware that shecannot take blood thinners, aspirin, or NSAIDs within 7 days of surgery and vitamins/herbals [id number] days. All questions answered. She will have [facility] imaging scanned into system. Discussed when to present to ED if necessary. Marlene Cordero PA-C documented in this encounterThe [facility]health System05-21-2024 History of Present illness Narrative* Con Oconnor MD - 09/04/2023 10:30 AM EDT Chief Complaint: Communicating hydrocephalus History of Present Illness: Chikis Tobar is a 58 year old female with a past medical history of communicating hydrocephalus who is seen virtually in this [facility] emergency department health follow-up visit. Chikis was admitted at [facility] June 24 for obstructed bowel. She had abdominal surgery and at the time the shunt was externalized. It was determined at the outside hospital that the shunt could be removed and was not replaced. Recently, 2 weeks ago, she felt weakness in her legs. She has been in physical therapy. Despite this, she has fallen a few times in this time period. She was concerned that she was unable to get herself up off the floor on her own. She denies any memory decline or urinary issues (has urostomy). She h as some mild low back pain, but nothing down her legs. Diagnostic testing CT Head 07/08 report: stable shunted ventricular system with mild ventriculomegaly Assessment/Plan: Chikis Tobar is a 58 year old female with a recently removed shunt. She has complained of difficulty walking in the last few weeks with falls. Will plan to have her see movement disorder neurology, as well as evaluated in clinic for a wound check as she mentions she still has scabs over her cranial incision. We will also get a CTH to evaluate for enlarging ventricles. Plan for shunt implantation. Of note, she has a urostomy and had small bowel resection for obstruction, will need to consult general surgery. She is not currently on antibiotics. I have communicated my name and active licensure. The patient's identity and physical location wereverified at the time of this visit. Either the patient or their legal billing customer service representative has been informed of the risks and benefits of -- and alternatives to -- treatment through a remote evaluation andconsents to proceed with the evaluation remotely. I spent 30 minutes in this virtual distance health visit, with more than 50% of the total exlo-rr-sgxi time of the visit in counseling / coordinationof care. SIGNATURE: Con Oconnor MD DATE of SERVICE: September 04, 2023 documented in this encounterThe [facility] System05-20-2024 Telephone encounter Note * Telephone Encounter - Brooks Pierson - 09/03/2023 10:23 AM EDT Chikis called in and wanted to know what all she needs to sign on her paperwork. She is refaxing the paperwork. She said they are giving her a hard time. Chikis can be reached at [phone]. .me [facility]05-20-2024 Miscellaneous Notes* Telephone Encounter - Brooks Pierson - 09/03/2023 10:23 AM EDT Chikis called in and wanted to know what all she needs to sign on her paperwork. She is refaxing the paperwork. She said they are giving her a hard time. Chikis can be reached at [phone]. .me documented in this encounterThe [facility] System05-16-2024 History of Present illness Narrative* Marlene Cordero PA-C - 08/30/2023 10:00 AM EDT CC: GEOLOGICAL ENGINEERING TEACHER shunt f/u HPI: Mrs Chikis Tobar comes to clinic today for surgical f/u. Chikis was admitted from [facility] after being found unresponsive. CT brain showed hydrocephalus with MRI on 05/29/22 showing multiple enhancement in the anterior sabra, medulla, and in the spine at the level of see 7-T3 and L1-S2. She underwentEVD placement followed by Certas shunt set to 4 on 07/10/22. Meningeal biopsy was notable for fungalhyphae and she is being treated by ID. On 08/16/[address] brain showed decreased in ventricular size development of small subdural hygromas overlying the frontal lobes measuring up to 8 mm in maximal thickness and her shunt was adjusted from 4 to 7. She was last seen on where she was doing well with improvement of gait. On 06/27/23 she underwent laparotomy for bowel obstruction at [facility], during procedure her shunt was externalized. After 7 days trial of clamp without change in symptoms she was deemed shunt independent and her shunt was removed by Dr Figueroa on 07/10/23. Over the past 2 weeks Chikis has seen worseningin her ambulation. She continues to use a rolator but feels much more unbalanced and is starting toshuffle. No additional neurologic complaints. Is following with ID Focused Exam: Right frontal shunt site examined, [...] normal and without evidence of atrophy Cerebellar: shulffing gait with walker Impression: Mrs Chikis Tobar is a pleasant 57 year old female seen for hospital follow up. Chikis underwent GEOLOGICAL ENGINEERING TEACHER shunt placement on 07/10/22 as inpatient. 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 On 06/27/23 she underwent laparotomy for bowel obstruction at [facility], during procedure her shunt was externalized. After 7 days trial of clamp without change in symptoms she was deemed shunt independent and her shunt was removed by Dr Figueroa on 07/10/23. Chikis was doing well until 2 weeks ago when her walking regressed. She now feels off balance and has started to shuffle. CT brain from 08/08/23shows dilation of lateral ventricles compared to last brain scan at [facility] on 05/09/23. Discussed the need for evaluation by movement neurology team. Will repeat CT brain at that visit. Red flag symptomsdiscussed and when to present to ED. Will also discuss proceeding with shunt reimplantation with Dr Elvin Cordero PA-C documented in this encounterThe [facility] System05-14-2024 Telephone encounter Note * Telephone Encounter - Fiorella Jung RN - 08/28/2023 2:31 PM EDT Called and spoke with patient. Asked if she had received supplies from [employer] yet or if she decided to switch to [employer]. Asked because [employer] sent a fax over this morning for Dr. Chambers to sign for supplies. She said she is good with [employer] and asked us to get rid of the orders from [employer]. She said they have been very difficult to work with and she prefers not to work with them any more. She said she called and filed a complaint about them through her insurance company. She thanked me for calling her to clarify and didn't have any further questions. [id number] Miscellaneous Notes* Telephone Encounter - Fiorella Jung RN - 08/28/2023 2:31 PM EDT Called and spoke with patient. Asked if she had received supplies from [employer] yet or if she decided to switch to [employer]. Asked because [employer] sent a fax over this morning for Dr. Chambers to sign for supplies. She said she is good with [facility] and asked us to get rid of the orders from [employer]. She said they have been very difficult to work with and she prefers not to work with them any more. She said she called and filed a complaint about them through her insurance company. She thanked me for calling her to clarify and didn't have any further questions. documented in this [id number] Telephone encounter Note* Telephone Encounter - Nivia Dalton RN - 08/27/2023 4:30 PM EDT RN called patient regarding symptom concerns. Patient stated that since her 07/[address] Figueroa, she has been working with physical therapy. Recently, her PT noticed she was having a lot of lower extremity tremors and rigidity. Whenever she would lay down during her PT session, her knees seemed contracted and were unable to be straightened to lay her legs flat. She feels her balance and lower extremity weakness are worsening. She has had 2 falls in the last 2 weeks. Her PT recommended she be seen as soon as possible by any neurosurgeon as patient was unsure who to follow up with. I confirmed with patient that we just received her imaging and will have it uploaded in our system shortly.She was able to get into her original neurosurgeon's office this week on 08/29 for an appointment regarding her symptoms. I explained that I will make sure her CT scan is uploaded and will notify Dr. Figueroa of her concerns. I also recommended that if her outside NSGY provider would like to speak withus, that is fine as well. Patient stated understanding and appreciated phone call. [id number] Telephone encounter Note* Telephone Encounter - Nivia Dalton RN - 08/27/2023 4:30 PM EDT ----- Message from Maurilio Salvador sent at 08/27/2023 2:51 PM EDT ----- Richard, Patient calling in , states she never received any called from us ( which makes sense bc there was no option to leave a VM as documented) She is concerned with new symptoms she has been having She got a CT done at an [facility] Reports are uploaded in the chart & there was a power share order I see was placed in today. She said she has a follow up appt at [facility] because she was told to go with whoever can get Her in first. Can you please either call her to discuss symptoms, and please let me know when to scheduled her Thank you Maurilio ----- Message ----- From: Nivia Dalton RN Sent: 08/22/2023 11:46 AM EDT To: Maurilio Salvador Document what you've done and send a mychart message to have her call back. ----- Message ----- From: Maurilio Salvador Sent: 08/22/2023 10:46 AM EDT To: Nivia Dalton RN Patient called in and left a message on my VM She said she was calling to get an appt as she has been having some concerning symptoms and would like to be seen I tried to call her back a few times with no option to leave a VM. It just disconnects. What would you advise? Should this be documented? Or just keep trying? Or send a mychart message? Thanks [id number] Miscellaneous Notes* Telephone Encounter - Nivia Dalton RN - 08/27/2023 4:30 PM EDT RN called patient regarding symptom concerns. Patient stated that since her 07/[address] Figueroa, she has been working with physical therapy. Recently, her PT noticed she was having a lot of lower extremity tremors and rigidity. Whenever she would lay down during her PT session, her knees seemed contracted and were unable to be straightened to lay her legs flat. She feels her balance and lower extremity weakness are worsening. She has had 2 falls in the last 2 weeks. Her PT recommended she be seen as soon as possible by any neurosurgeon as patient was unsure who to follow up with. I confirmed with patient that we just received her imaging and will have it uploaded in our system shortly.She was able to get into her original neurosurgeon's office this week on 08/29 for an appointment regarding her symptoms. I explained that I will make sure her CT scan is uploaded and will notify Dr. Figueroa of her concerns. I also recommended that if her outside NSGY provider would like to speak withus, that is fine as well. Patient stated understanding and appreciated phone call. * Telephone Encounter - Nivia Dalton RN - 08/27/2023 4:30 PM EDT ----- Message from Maurilio Salvador sent at 08/27/2023 2:51 PM EDT ----- Richard, Patient calling in , states she never received any called from us ( which makes sense bc there was no option to leave a VM as documented) She is concerned with new symptoms she has been having She got a CT done at an [facility] Reports are uploaded in the chart & there was a power share order I see was placed in today. She said she has a follow up appt at [facility] because she was told to go with whoever can get Her in first. Can you please either call her to discuss symptoms, and please let me know when to scheduled her Thank you Maurilio ----- Message ----- From: Nivia Dalton RN Sent: 08/22/2023 11:46 AM EDT To: Maurilio Salvador Document what you've done and send a mychart message to have her call back. ----- Message ----- From: Maurilio Salvador Sent: 08/22/2023 10:46 AM EDT To: Nivia Dalton RN Patient called in and left a message on my VM She said she was calling to get an appt as she has been having some concerning symptoms and would like to be seen I tried to call her back a few times with no option to leave a VM. It just disconnects. What would you advise? Should this be documented? Or just keep trying? Or send a mychart message? Thanks documented in this [id number] Telephone encounter Note* Telephone Encounter - Fiorella Jung RN - 08/23/2023 9:48 AM EDT Spoke with Lucie. Order resent to [facility] yesterday, 08/22, as previous order was sent to [facility]. [id number] Miscellaneous Notes* Telephone Encounter - Fiorella Jung RN - 08/23/2023 9:48 AM EDT Spoke with Lucie. Order resent to [facility] yesterday, 08/22, as previous order was sent to [facility]. * Telephone Encounter - Noel Ramírez - 08/23/2023 8:21 AM EDT Wound ostomy nurse Jennifer Sandhu called to speak with the uro coordinator about this patient regarding some paperwork questions. Please call her back to speak with her, or Epic chat her. She would prefer the epic chat as she will be visiting patients soon. Thank you. [phone] documented in this [id number] Telephone encounter Note* Telephone Encounter - Maurilio Salvador - 08/23/2023 9:23 AM EDT 08/22/23 Purpose: Admin Coordinator Received VM from patient inquiring to schedule an appointment with Dr. Figueroa as she has newer some concerning symptoms Outcome: Coordinator tried to call patient back a few times with no option to leave a VM. It just disconnects. Plan: Will send a mychart message to inform patient and request return call [id number] Miscellaneous Notes* Telephone Encounter - Modesto Maurilio - 08/23/2023 9:23 AM EDT 08/22/23 Purpose: Admin Coordinator Received VM from patient inquiring to schedule an appointment with Dr. Figueroa as she has newer some concerning symptoms Outcome: Coordinator tried to call patient back a few times with no option to leave a VM. It just disconnects. Plan: Will send a VIRxSYS message to inform patient and request return call documented in this [id number] Telephone encounter Note* Telephone Encounter - Noel Ramírez - 08/23/2023 8:21 AM EDT Wound ostomy nurse Jennifer Sandhu called to speak with the uro coordinator about this patient regarding some paperwork questions. Please call her back to speak with her, or Epic chat her. She would prefer the epic chat as she will be visiting patients soon. Thank you. [phone] [id number] Telephone encounter Note* Telephone Encounter - Fiorella Jung RN - 08/22/2023 3:53 PM EDT Called and spoke with [facility]. Upon further review, pt's DME order was sent to [facility]. Order resent to [facility]. [id number] Miscellaneous Notes* Telephone Encounter - Fiorella Jung RN - 08/22/2023 3:53 PM EDT Called and spoke with [facility]. Upon further review, pt's DME order was sent to [facility]. Order resent to [facility]. * Telephone Encounter - Khoi Medina - 08/22/2023 1:13 PM EDT Another billing customer service representative form [facility] called to urge that the patient's prescription for ostomy supplies be signed and sent back to them. The patient's health plan is complaining that they haven't been signed, and neither [facility] nor the health plan have any orders or information associated with the patient's urologist at [facility] or ostomy/colorectal team at [facility]. The order that they have is the referral/order entered 07/30/23 (apparently under Jennifer Zamora RN). * Telephone Encounter - Noel Ramírez - 08/20/2023 1:38 PM EDT Paulette from [facility] is calling about out [facility]. They have an order for ostomy supplies for the patient however it has not been signed off on by a doctor. Please resubmit the order with the Drs approval on it. Thank you. [phone] documented in this [id number] Telephone encounter Note* Telephone Encounter - Khoi Medina - 08/22/2023 1:13 PM EDT Another billing customer service representative form [facility] called to urge that the patient's prescription for ostomy supplies be signed and sent back to them. The patient's health plan is complaining that they haven't been signed, and neither [facility] nor the health plan have any orders or information associated with the patient's urologist at [facility] or ostomy/colorectal team at [facility]. The order that they have is the referral/order entered 07/30/23 (apparently under Jennifer Zamora RN). [id number] Telephone encounter Note* Telephone Encounter - Noel Ramírez - 08/20/2023 1:38 PM EDT Paulette from [facility] is calling about out [facility]. They have an order for ostomy supplies for the patient however it has not been signed off on by a doctor. Please resubmit the order with the Drs approval on it. Thank you. [phone] [id number] History of Present illness Narrative* Aashish Monge PA-C - 08/14/2023 2:30 PM EDT Orthopaedic Surgery Clinic Established Visit Date of Injury: 04/11/24 Injury: Left patella fracture History: Patient presents to clinic 5 months from the above injury. She is doing okay today. She was recently admitted to [facility] for 3 weeks for health issues related to her bowls and brain shunt. Sheconsequently she was not able to do any PT for her knee while in the house. Denies numbness or tingling. Physical Exam: There were [...] in saphenous/sural/deep peroneal/superficial peroneal/tibial nerve distribution Musculoskeletal: No tenderness to palpation over fracture and Range of motion Knee 0-90 Imaging: I personally reviewed xrays and discussed with patient: Demonstrate maintained alignment no interval displacement, fracture line lightly visible on imaging Assessment and Plan: Patient is a 58 year old female 5 months s/p closed treatment of left patella fracture -Patient is progressing appropriately -Plan to continue closed, nonoperative treatment -Recommended Tylenol for pain control -Continue with PT to work on ROM of knee -Can wean out of knee brace -Weightbearing: Weight bearing as tolerated and Range of motion as tolerated -Follow up: 3 months with x-rays Aashish Monge PA-C documented in this encounterThe [facility]04-30-2024 History of Present illness Narrative* Carmen Barnes RT(R) - 08/14/2023 1:20 PM EDT Radiology Service Progress Note PATIENT NAME: Chikis Tobar DATE OF SERVICE: August 14, 2023 TIME: 12:51 PM PATIENT IDENTITY VERIFICATION COMPLETED USING TWO (2) IDENTIFIERS: Name and Date of confirmedby patient verbally and Name and Date of confirmed by identification band. FALL SCREENING: Has the patient had 2 falls in the last year or 1 fall with injury or currently using an Ambulatory Assistive Device (Walker, Cane, Wheelchair, Crutches, etc.)? Yes, Patient High Riskfor Falls What interventions were put in place to prevent falls during this visit? Yellow Falls Risk Wristband Applied and Offered Assistance with Transfers/Clothing PATIENT GENDER DATA: Female. status: : No status: NO. PATIENT RELEVANT IMPLANT DATA REVIEWED: Not Applicable PATIENT PRESENTS WITH AN IMPLANTABLE OR ATTACHED AIRCRAFT DESIGN ENGINEER: Yes Dexcom RADIOLOGY DEPARTMENT: General X-ray: Exam(s) Completed: Lower Extremity X- Ray(s): Knee, AP / LAT Left PERIPHERAL IV DATA: Not applicable SIGNED BY: RT Rocio(R) August 14, 2023 12:51 PM documented in this encounterThe [facility] System04-25-2024 Telephone encounter Note * Telephone Encounter - Dion Andujar RN - 08/09/2023 2:33 PM EDT Wound Ostomy Continence (WOC) Nursing Received phone call from Hilario of [employer] (Pt's insurance) stating that she had been working on trying to figure out the hold-up of patient receiving supplies from [facility]. Had planned for conference call with billing customer service representative from [employer] on 08/07 but no phone call ever received. Another phone call received from Hilario at 1420 on 08/08 stating that another DME company is able to accept pt's insurance and that Chikis gave permission for info to be sent there. DME order &most recent WOC note faxed to [facility] at . Confirmation received at 1430 eastern time. Will follow up with patient as needed. GEMA Krishnan RN, CWOCN' [id number] Miscellaneous Notes* Telephone Encounter - Dion Andujar RN - 08/09/2023 2:33 PM EDT Wound Ostomy Continence (WO) Nursing Received phone call from Hilario of [employer] (Pt's insurance) stating that she had been working on trying to figure out the hold-up of patient receiving supplies from [facility]. Had planned for conference call with billing customer service representative from [employer] on 08/07 but no phone call ever received. Another phone call received from Hilario at 1420 on 08/08 stating that another DME company is able to accept pt's insurance and that Chikis gave permission for info to be sent there. DME order &most recent WO note faxed to [facility] at . Confirmation received at 1430 eastern time. Will follow up with patient as needed. GEMA Krishnan RN, CWOCN' documented in this [id number] Telephone encounter Note* Telephone Encounter - Yuridia Martinez RN - 08/08/2023 4:56 PM EDT [facility] nursing returned patient message regarding: Pt needs an updated supply form and chart notes faxed to [facility]. Left Message: No- spoke directly to pt Information/Recommendations provided regarding: Pt has not been seen since 2021. Offered pt an appointment at [facility] nursing out-pt clinic for updated chart notes & supply form. She agreed to come in. Appointment scheduled for 08/21/23 at 8:15 am. All needs addressed. Time spent: 15 minutes GEMA Milton, RN, CWOCN For non-emergent WO Nursing patient care needs - Please place a consult via Epic under ostomy . WO Nurse Available Hours: M-F: [phone]; Weekends & Holidays: [phone] For emergent WO Nursing patient care needs - Page #[phone], during available hours only. [facility]04-24-2024 Miscellaneous Notes* Telephone Encounter - Yuridia Martinez RN - 08/08/2023 4:56 PM EDT [facility] nursing returned patient message regarding: Pt needs an updated supply form and chart notes faxed to [facility]. Left Message: No- spoke directly to pt Information/Recommendations provided regarding: Pt has not been seen since 2021. Offered pt an appointment at [facility] nursing out-pt clinic for updated chart notes & supply form. She agreed to come in. Appointment scheduled for 08/21/23 at 8:15 am. All needs addressed. Time spent: 15 minutes GEMA Milton, RN, CWOCN For non-emergent WO Nursing patient care needs - Please place a consult via Epic under ostomy . WO Nurse Available Hours: M-F: [phone]; Weekends & Holidays: [phone] For emergent WO Nursing patient care needs - Page #[phone], during available hours only. * Telephone Encounter - Kacie Pettit PCNA - 08/08/2023 2:56 PM EDT Patient would like to speak to a stoma nurse needs an updated scripts for supplies. Call back# [phone] Thank you, Kacie Pettit Coordinator II [facility] nursing documented in this encounterThe [facility]04-24-2024 Telephone encounter Note * Telephone Encounter - Kacie Pettit PCNA - 08/08/2023 2:56 PM EDT Patient would like to speak to a stoma nurse needs an updated scripts for supplies. Call back# [phone] Thank you, Kacie Pettit Coordinator II WOC nursing [facility]04-23-2024 Telephone encounter Note* Telephone Encounter - Dion Andujar RN - 08/07/2023 8:18 AM EDT Wound Ostomy Continence (WOC) Nursing Pt left VM on 08/05 stating the DME company still had not received her ostomy supply order. Called [facility] who confirmed no order was received despite multiple faxes being sent. Rep from the ostomy department stated she would talk to her supervisor lens generating to check on fax system and use a different number if needed. She also explained pt still needed to fill out assignment of benefits (AOB) beforesupplies are sent out. Called pt back in the afternoon (1530) and she stated her insurance company verified that the DME company received her order. Pt is still sorting out the AOB on her end as it was sent via snail mail but pt never received. Online option is available that pt is planning to fill out and return. GEMA Krishnan RN, CWOCN [id number] Miscellaneous Notes* Telephone Encounter - Dion Andujar RN - 08/07/2023 8:18 AM EDT Wound Ostomy Continence (WOC) Nursing Pt left VM on 08/05 stating the DME company still had not received her ostomy supply order. Called [facility] who confirmed no order was received despite multiple faxes being sent. Rep from the ostomy department stated she would talk to her supervisor lens generating to check on fax system and use a different number if needed. She also explained pt still needed to fill out assignment of benefits (AOB) beforesupplies are sent out. Called pt back in the afternoon (1530) and she stated her insurance company verified that the DME company received her order. Pt is still sorting out the AOB on her end as it was sent via snail mail but pt never received. Online option is available that pt is planning to fill out and return. GEMA Krishnan RN, CWOCN documented in this [id number] Telephone encounter Note* Telephone Encounter - Dion Andujar RN - 08/03/2023 8:05 AM EDT Wound Ostomy Continence (WOC) Nursing Pt called and left VM stating DME KODA, [facility], did not receive DME order and is unableto send supplies. Confirmed that DME order was placed 07/30/23 and faxed to correct provided number.Call placed to [employer] and left for ostomy department. Awaiting call back 1430 Addendum: Call placed to [facility] again who stated no DME order was received on the . Personally faxed order to [facility] who confirmed fax number was correct. Fax confirmation received 08/03/23 at 1438. Called pt to update her and recommend she call today or tomorrow to confirm they have her order and info correct. GEMA Krishnan RN, CWOCN [id number] Miscellaneous Notes* Telephone Encounter - Dino Andujar RN - 08/03/2023 8:05 AM EDT Wound Ostomy Continence (WOC) Nursing Pt called and left VM stating DME KODA, [facility], did not receive DME order and is unableto send supplies. Confirmed that DME order was placed 07/30/23 and faxed to correct provided number.Call placed to [employer] [employer] [facility] and left for ostomy department. Awaiting call back 1430 Addendum: Call placed to [facility] again who stated no DME order was received on the . Personally faxed order to [facility] who confirmed fax number was correct. Fax confirmation received a4 at 1438. Called pt to update her and recommend she call today or tomorrow to confirm they have her order and info correct. GEMA Krishnan RN, CWOCN documented in this [id number] Miscellaneous Notes* Telephone Encounter - Akila Yepez - 08/02/2023 9:15 AM EDT Contacted patient and scheduled an appointment with Aashish Monge PA-C and charan on 08/14/23. documented in this encounterThe [facility]04-15-2024 Telephone encounter Note * Telephone Encounter - Jennifer Sandhu RN - 07/30/2023 8:17 AM EDT Wound Ostomy Continence (WOC) Nursing Message received from patient that [employer] is OON for ostomy supply DME. She placed a callto her insurance and found that a company by the name of [facility] is in network andcan ship her supplies to her home. New DME order placed with request to send to [facility] Phone # and Fax # , she was able to start an account with them and her acct # is [id number]. Requested patient to call with any further issues. Jennifer LEAVITT, RN, CWOCN [id number] Miscellaneous Notes* Telephone Encounter - Jennifer Sandhu RN - 07/30/2023 8:17 AM EDT Wound Ostomy Continence (WOC) Nursing Message received from patient that [employer] is OON for ostomy supply DME. She placed a callto her insurance and found that a company by the name of [facility] is in network andcan ship her supplies to her home. New DME order placed with request to send to [facility] Phone # and Fax # , she was able to start an account with them and her acct # is [id number]. Requested patient to call with any further issues. Jennifer Sandhu MSN, RN, CWOCN documented in this [id number] History of Present illness Narrative* Arlene Chambers MD - 07/26/2023 4:23 PM EDT Images from the original note were not included. Division of Urology Established Patient Clinic Note Patient Name: Chikis Tobar Last seen in Urology: Most recent visit in Pediatric Urology was on 07/26/2023 with Arlene Chambers MD CC: Patient is here for : postoperative check HPI: Patient is s/p b/L uretal reimplantation to ileal conduit with b/L stent placement on 06/27/23. Thepatient underwent a laparotomy and bowel resection due to SBO on 06/27/23; her ureters were transected during the operation and required reimplantation. The patient has a history of urothelial carcinoma of the bladder and underwent radical cystectomy with ileal conduit 2021. The patient reports fatigue but feels she is recovering relatively well save for experiencing runny, frequent stools. Gen-surg recommended she supplement with fiber - patient has been using Metamucileach morning since then. Appetite is diminished but intact. No f/c/n/v. Patient reports she had some mild pain around incisional sites but pain resolved last week. Per patient, urine output is about 3,000 cc per day and urine is clear/light yellow with sedimentation from her stoma. RLQ stoma is patent and pink. Urine in stoma bag today is yoni yellow (patient reports she has not eaten or hydrated well today) with mucosal discharge from stoma. Current pain is 2/10 and mostly related to her L knee (L patella fracture Jun 2023). Current Outpatient Medications Medication Sig Dispense Refill diphenhydrAMINE-APAP, sleep, (Tylenol PM Extra Strength) 25-500 MG TABS Take 2 Tablets by mouth as needed for Pain (L knee). Pt reports she is taking Tylenol Extra Strength at night to help with pain insulin syringe-needle u-100 31g x 5/16 0.3 ml (TRUEplus Insulin Syringe) Use as directed 100 Each0 insulin glargine (LANTUS SOLOSTAR/BASAGLAR KWIKPEN) 100 UNIT/ML pen Inject 30 Units under the skin at bedtime. Keep on hand for emergency use 30 mL 0 insulin pen needle 31g x 5 mm [place] for Lantus solostar 100 Each 0 acetaminophen (TYLENOL) 325 mg tablet 2 Tablets by NG Tube route every 6 hours as needed for up to 14 days. Do NOT exceed 4 Grams acetaminophen daily from all sources 60 Tablet 0 tizanidine (ZANAFLEX) 4 MG tablet Take 1 Tablet by mouth 3 times daily as needed for up to 14 days.42 Tablet 0 naloxone 4 mg/0.1 mL nasal liquid Use 1 [place] in one nostril (alternate sides) as needed for Drug Overdose (and call 911). every 2-3 min, until assistance arrives. 2 Each 3 Posaconazole (NOXAFIL) [address] Take 3 Tablets by mouth daily. 42 Tablet senna (SENOKOT) 8.6 MG tablet Take 1 Tablet by mouth at bedtime as needed for Constipation for up to 14 days. 14 Tablet 0 insulin lispro (HumaLOG) 100 UNIT/ML injection Inject 300 Units into the pump. Draw up 3ml (300U) to fill insulin pump 10 mL 0 metoprolol (TOPROL-XL) 100 mg XL tablet Take 100 mg by mouth every 12 hours. 6am/6pm lisinopril (ZESTRIL) 20 MG tablet Take 20 mg by mouth daily. LACTOBACILLUS ORAL Take 1 Capsule by mouth daily. ipratropium (ATROVENT) 0.06 % nasal spray Use 2 Sprays in each nostril every 8 hours. No current facility-administered medications for this visit. No past medical history on file. No family history on file. Social History Socioeconomic History Marital status: Single Tobacco Use Smoking status: Never Smokeless tobacco: Never Social Determinants of Health Financial Resource Strain: Low Risk (07/12/2023) Overall Financial Resource Strain (CARDIA) Difficulty of Paying Living Expenses: Not very hard Food Insecurity: No Food Insecurity (07/12/2023) Hunger Vital Sign Worried About Running Out of Food in the Last Year: Never true Ran Out of Food in the Last Year: Never true Transportation Needs: No Transportation Needs (07/12/2023) PRAPARE - Transportation Lack of Transportation (Medical): No Lack of Transportation (Non-Medical): No Review of Systems: General: Negative for fever, chills, and night sweating. Gastrointestinal: Negative for nausea, vomiting, abdominal pain. Appetite intact, though reportedlylower than pre-hospitalization. Positive for diarrhea - pt reports runny, frequent Bms. 5-6/10 pelvic pain with some, not all, Bms. Musculoskeletal: L knee pain (2/10 on pain scale). Ambulating okay with walker. Psychiatric: Sleeping 6 hours/night - sleep has improved recently. Experienced sleep disturbance post-op due to frequent Bms. Physical Exam: There were no vitals taken for this visit. General appearance: Wnl nutrition, no deformities, healthy appearing Respiratory: NL effort, no retractions or purse-lip breathing Abdomen: Soft, nontender. Psych: Normal affect Genitourinary: Stoma patent and pink. Lab Data: Renal Function: Basic Metabolic Panel (Last 5 results in the past 3 years) Na K Cl CO2 Gap Glu BUN Cr Ca 07/13/23 0531 142 3.5 108 29 9 94 6 0.40 8.0 07/12/23 0049 141 3.7 106 27 12 66 8 0.49 8.2 07/11/23 0028 142 3.8 108 26 12 60 9 0.43 8.5 07/10/23 1217 141 4.2 108 24 13 221 13 0.47 8.4 07/10/23 0955 142 3.3 108 07/10/23 0955 >270 Pathology Data: 07/03/2023 5:07 PM - Aarti Reyes MD Component Case Report Surgical Pathology Report Case: [id number] Authorizing Provider: Brooks Martinez MD Collected: 06/27/2023 1617 Ordering Location: [facility] Main OR Received: 06/28/2023 0855 Pathologist: Aarti Reyes MD Specimens: A) - Small Bowel, small bowel B) - Bowel, cecum Final Diagnosis A. Small bowel, resection Sections of small bowel with transmural necrosis and acute inflammation, hemorrhage, epithelial sloughing and marked serosal adhesions. Margins of resection are viable with hemorrhage and serosal adhesions. B. Colon, cecum, resection Sections of large bowel with congestion, serosal acute inflammation and adhesions. Margins of resection are viable. . I certify that I personally conducted the diagnostic evaluation of the above specimen(s) and have rendered the final diagnosis(es). Clinical Information Gross Description A. Requisitioned as Small bowel . The specimen is received fresh in one container, labeled with the patient's name and medical recordnumber. Marked as small bowel . The specimen consists of a segment of small bowel measuring 20 cmin length and7.5 cm in circumference. The outer surface of the bowel is barrow-doty. The mucosal surface is green-doty and a 0.9 cm elevated, soft hemorrhagic area is identified located 2 cm from the 1st resection margin and 17 cm from the 2nd resection margin.. Sections: Head Of Quality A1. First resection margin ( 1) A2. Second resection margin (1) A3. Sections of bowel (2) A4-A5. Sections of elevated area to the bowel wall (1 each ) B. Requisitioned as cecum . The specimen is received fresh in one container, labeled with the patient's name and medical recordnumber. Marked as cecum . The specimen consists of the segment of large bowel measuring 11 cm in length and 10 cm circumference. The mucosal surface is pink -doty and is unremarkable for any lesions. Sections: Head Of Quality B1. Proximal resection margin (X) B2. Distal resection margin (X) B3 - B4.. Sections of full-thickness bowel (1 each ) Xochilt Correa MD Scans on Order [id number] Lab Result Document - Document on 07/03/2023 5:07 PM by Aarti Reyes MD Lab and Collection SPECIMEN FOR SURGICAL PATH (Order: [id number]) - 06/27/2023 Collection Information Specimen ID: 1 Tissue Small Bowel Collected: 06/27/2023 4:17 PM BROOKS MARTINEZ Received: 06/28/2023 8:51 AM Resulting Agency: [facility] [address] [place] [address] Specimen ID: 2 Tissue Bowel Collected: 06/27/2023 4:35 PM BROOKS MARTINEZ Received: 06/28/2023 8:51 AM Resulting Agency: [facility] [address] [place] [address] Last Urine Cytology: none found going back to 04/24/2015 Radiology Data: None Impression: 58 year old White female recovering well s/p b/L ureteral reimplantation to ileal conduit / to iatrogenic injury during recent resection of ischemic SB Plan: Bilateral ureteral stents to be removed today in office. Pt to f/u with [facility] urology for ongoing care. Instructed patient to call with any additional questions or concerns that arise. Teaching Physician Note: I saw and evaluated the patient. I personally obtained the gordon and critical portions of the historyand physical exam. I reviewed the resident's documentation and discussed the patient with the resident. I agree with the resident's medical decision making as documented in the resident's note. MD Arlene Gibson MD documented in this [id number] Instructions* Patient Instructions* Daniel Figueroa MD - 07/26/2023 11:41 AM EDT Please schedule CT head documented in this [id number] History of Present illness Narrative* Roman Thompson MTA - 07/26/2023 11:23 AM EDT Patient identfied by name and date of Pharmacy updated Vital signs taken Patent in exam room ready for MD * Daniel Figueroa MD - 07/26/2023 11:00 AM EDT [facility] Neurological Surgery post-op note: Chikis Tobar 58 year old female Postop visit s/p removal of R frontal GEOLOGICAL 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 Patient was taken to the OR with EGS on 06/26 for ex lap and found to have frankly necrotic bowel with unavoidable injury to bilateral ureters due to dense adhesive disease during the case forwhich urology placed b/L ureteral reimplantation, and contamination of the distal portion of the VPS for which NSGY externalized the catheter at the clavicle during the procedure. Patient underwent general anesthesia and recovered in PACU. When medically stable, patient was transferred to the SICU for close monitoring. Urology, Dr. Chambers, placed and managed a TOD drain that was removed prior to discharge. Patient to f/u OP for removal of the b/L stents and will be scheduled for f/u 2wks from discharge. EGS, Dr. Martinez, managed the patient post operatively following her SBO and the NGT was removed 06/30 and patient was voiding and stooling appropriately. NSGY maintained the externalized shunt at the clavicle via an EVD and was the valve was adjusted from 7 to 8 to see if the patient would continue to remain shunt independent for a prolonged course. Following seven days of a clamped EVD, patient was deemed shunt independent and the VPS was removed by Dr. Figueroa on 07/09. There were no intra-operative complications. Patient underwent general anesthesia and recovered in the ICU. When medically stable, patient was transferred to regular nursing floor. Patient evaluated by PT/OT who recommended discharge home. On day of discharge, patient was tolerating PO diet, pain controlled on oral medications, voiding, ambulating, and vitals stable. Patient being discharged home in stable condition. Review of Systems Constitutional: Negative. HENT: Negative. Eyes: Negative. Respiratory: Negative. Cardiovascular: Negative. Gastrointestinal: Negative. Genitourinary: Negative. Musculoskeletal: Negative. Skin: Negative. Neurological: Negative. Endo/Heme/Allergies: Negative. Psychiatric/Behavioral: Negative. Vitals: 07/26/23 1122 BP: 139/62 Pulse: 83 SpO2: 100% Physical Exam HENT: Head: Normocephalic. Mouth/Throat: Mouth: Mucous membranes are moist. Pharynx: Oropharynx is clear. Eyes: Extraocular Movements: Extraocular movements intact. Conjunctiva/sclera: Conjunctivae normal. Pupils: Pupils are equal, round, and reactive to light. Pulmonary: Effort: Pulmonary effort is normal. Musculoskeletal: General: Normal range of motion. Cervical back: Normal range of motion and neck supple. Skin: General: Skin is warm and dry. Neurological: General: No focal deficit present. Mental Status: She is alert and oriented to person, place, and time. Cranial Nerves: No cranial nerve deficit. Sensory: No sensory deficit. Motor: No weakness. Left knee brace R frontal cranial surgical incision and incision below R clavicle well healed No images are attached to the encounter. Chikis was seen today for suture removal. 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 Now shunt independent. Recovering well post surgery. Plan: CT head, will MyChart message with results No specific neurosurgical follow up Follow up as needed Daniel Figueroa MD MSc FRCSC FAANS Neurosurgeon Heel Stainer Department of Neurological Surgery [facility] Pager [phone] documented in this [id number] History of Present illness Narrative* Bradley Hernandez MD - 07/18/2023 3:09 PM EDT Images from the original note were not included. Progress Note: Postoperative Clinic Visit Chikis Tobar is a 58 year old female who presents to clinic after admission to the EGS service on 06/25/23. Hospital Course Ms. 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 Patient was taken to the OR with EGS on 06/26 for ex lap and found to have frankly necrotic bowel with unavoidable injury to bilateral ureters due to dense adhesive disease during the case forwhich urology placed b/L ureteral reimplantation, and contamination of the distal portion of the VPS for which NSGY externalized the catheter at the clavicle during the procedure. Patient underwent general anesthesia and recovered in PACU. When medically stable, patient was transferred to the SICU for close monitoring. Urology, Dr. Chambers, placed and managed a TOD drain that was removed prior to discharge. Patient to f/u OP for removal of the b/L stents and will be scheduled for f/u 2wks from discharge. EGS, Dr. Martinez, managed the patient post operatively following her SBO and the NGT was removed 06/30 and patient was voiding and stooling appropriately. NSGY maintained the externalized shunt at the clavicle via an EVD and was the valve was adjusted from 7 to 8 to see if the patient would continue to remain shunt independent for a prolonged course. Following seven days of a clamped EVD, patient was deemed shunt independent and the VPS was removed by Dr. Figueroa on 07/09. There were no intra-operative complications. Patient underwent general anesthesia and recovered in the ICU. When medically stable, patient was transferred to regular nursing floor. Patient evaluated by PT/OT who recommended discharge home. On day of discharge, patient was tolerating PO diet, pain controlled on oral medications, voiding, ambulating, and vitals stable. Patient being discharged home in stable condition. Follow-up plan at the time of discharge: 07/[address] Martinez 07/[address] Figueroa 07/[address] Chambers Today: Tolerating a diet. Pain is controlled. Denies nausea, vomiting The patient has the following complaints: Continues to have loose stools Physical Exam Patient in no distress Abdomen soft, non-distended, nontender, lorna in place, RLQ urostomy in place Incisions are clean/dry/intact A/P: - Patient doing well - Advised that her loose stools is common after having bowel surgery and having the ileocecal valveremoved. Explained that fiber supplements would help bulk her stool. - Followup appointments confirmed, follow up with her PCP, Neurosurgery, and Urology - Discussed pain regimen - no longer taking any - Discussed postoperative care including wound care as well as lifting restrictions and work restrictions. - Patient is cleared to return to work - No need to return to clinic unless new issues arise Bradley Hernandez MD * Kelly Lee RN - 07/18/2023 2:35 PM EDT Identification was verified by patient verbalizing her name and date of . documented in this encounterTHE Immunity Project SYSTEM Work Phone: [phone] [phone] Miscellaneous Notes* Telephone Encounter - Kacie Peterson HUC - 08/01/2023 9:44 AM EDT Prior authorization documentation Prior authorization process has been initiated for the following medication: Medication: Noxafil Dosage: [address] kunz Refills: 10 Provider: Bibiana The prior authorization has been: PENDED. [facility] GORDON: [id number] Insurance Company Name: [employer] Medicare Patient ID number: [id number] documented in this encounterCleveland [id number] Miscellaneous Notes* Telephone Encounter - Kacie Peterson HUC - 08/01/2023 10:21 AM EDT Attempted to call patient in regard to [employer] PAP form, vm is not set up. MC message sent * Telephone Encounter - Dwayne Wray - 07/31/2023 3:[address] Mccarty, Please see the below [employer] message and contact patient to advise within 72 hours. Dwayne Bernstein I spoke to [employer] today. They kept telling me in the last couple of months they needed a new script it isn t a new script they need they said today they need a new application for the program. I told them they should have told me that instead of continually telling me they needed a new script which they already have that. They told me the application will need to be filled out at the clinic and signed by you and me then faxed to them. If they would have given me the correct information when I first started asking them in May I wouldn t be feeling like we are dealing with this at the last minute. I am sorry for all of this confusion but I have tried to stay on top of things and this is the outcome. I will wait to hear back from you in regards to the new application. documented in this encounterThe [facility]03-29-2024 NoteThe [facility]03-29-2024 History of Present illness Narrative* Jennifer Sandhu RN - 07/13/2023 9:27 AM EDT Wound Ostomy Continence (WOC) Nursing Reason for visit: Ostomy Care RN Assigned to Patient During Consult: Estee Sood. Assessment/Findings: Patient requesting assistance with pouch change prior to anticipated dischargetoday. Patient is typically independent with care, however, WOC Nursing has offered assistance thisadmission. Ostomy order DME was also updated this admission. Pouch change completed successfully. Type of Stoma: Ileal Conduit Location: RLQ Pouching System Removed: Removed, from top to bottom, using adhesive remover wipes. Back of flange inspected to assess wear/fit. Stents Present: Two stents both noted to have urine droplets Stoma Measurement (inches): 1 Mucosa: Red/moist Mucocutaneous Juncture: Intact Peristomal Skin: clear and intact Abdominal Contour: Rounded, stoma sits in shallow clemente Peristomal Tissue: Soft Output: Light yellow urine with mucus shreds Protrusion: Budded Peristomal Skin Care: Peristomal skin cleansed using soap and water, then dried. Skin then dusted with stomahesive powder, excess powder dusted off. Pouching System Applied: Coloplast SenSura Beaver (Medium, 08/21 -1 08/29 ) Deep Convex MAXI Cut to Fit Urostomy Pouch #[id number], Brava moldable ring (4.2 mm) #[id number], Coloplast Brava U-shaped elastic barrierstrips #[id number], Coloplast gravity drainage bag #[id number] Deputy #[id number] Expected Wear Time: 3-4 days Total Time Spent with Patient: 25 minutes Plan for Next Visit: If patient remains admitted, pouch change will be due on July 16. The pouching described above was selected by a Certified Ostomy Nurse, specifically for this patient. If an alternative pouch is used for this patient without proper fitting, the chance of the pouch leaking could increase significantly, leading to issues with raquel-stomal skin integrity and future po uching difficulties. Therefore, it is important to make every effort to maintain the appropriate pouching system (or one that is comparable) in order to maintain a successful and adequate seal. Jennifer Sandhu MSN, RN, CWOCN Chelsie Barbour MSN, RN, CWOCN * Yuridia Barbour PA-C - 07/13/2023 6:41 AM EDT Images from the original note were not included. [facility] NEUROS[facility]GERY DAILY PROGRESS NOTE Overnight Events: No acute events overnight. Patient remained overnight due to lack of transport. Feeling well this morning. Ride planning to arrive around 8 AM. Patient feeling ready to go home today. O: Vital sign ranges over the past 24 hours (retrieved 07/13/2023 at 6:41 AM): Tmax (24 hours): 99 F (37.2 C) Pulse Av.7 Min: 77 Max: 87 Systolic (24hrs), Av , Min:153 , Max:175 Diastolic (24hrs), Av, Min:59, Max:67 MAP (mmHg) Av.3 mmHg Min: 85 mmHg Max: 93 mmHg Resp Av Min: 18 Max: 18 SpO2 Av % Min: 100 % Max: 100 % Intake/Output Summary (Last 24 hours) at 07/13/2023 0641 Last data filed at 07/13/2023 0500 Gross per 24 hour Intake 1400 ml Output 2400 ml Net -1000 ml Fingerstick Glucose Glucose 07/12/23 1150 82 Comment: Follow Protocol
Notified ALISTAIR KEY MD
07/12/23 0846 139 07/12/23 0746 82 Comment: Notified ALISTAIR KEY MD
Follow Protocol
LABS: CBC/PT/INR WBC RBC Hgb Hct MCV RDW Plt PT aPTT INR 07/13/23 0531 5.7 2.83 8.3 25.1 89 17.2 499 07/12/23 0049 7.2 3.19 9.0 28.3 89 18.0 595 07/11/23 0137 7.0 2.79 7.9 24.7 89 18.0 648 07/10/23 0955 7.9 24.6 07/10/23 0934 <7.0 18.3 WBC/Diff None Basic Metabolic Panel Na K Cl CO2 Gap Glu BUN Cr Ca Mg PO4 07/13/23 0531 142 3.5 108 29 9 94 6 0.40 8.0 07/12/23 0049 141 3.7 106 27 12 66 8 0.49 8.2 07/11/23 0028 142 3.8 108 26 12 60 9 0.43 8.5 07/10/23 1217 141 4.2 108 24 13 221 13 0.47 8.4 07/10/23 0955 142 3.3 108 07/10/23 0955 >270 07/10/23 0934 138 3.4 107 07/10/23 0934 257 Hepatic/Biliary/Pancreas None Cardiac None Arterial Blood Gases None CSF Culture None Urine Culture None Pyogen Culture None Blood Culture None Exam Oriented x3 PERRL, EOMI FS, TM Speech Intact BUE 5/5, no drift BLE 5/5, no drift SILT Wound: cranial incision c/d/i; right clavicle dressing c/d/I ASSESSMENT: 58 year old year old female PMH of T1DM cb/ DKA, urothelial carcinoma of the bladder s/p radical cystectomy and ileal conduit c/b SBO (Dec 2021), HTN, chronic sinusitis, asthma, persistent encephalopathy and hydrocephalus 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 NSGYconsulted by ACS in setting of patient requiring surgical intervention for SBO and need for possible OR availability to externalize VPS. Valve setting increased to 8 (07/01): 07/01 EVD clamped. Shunt dialed from 7 --> 8 (factory off setting). 07/04 CTH post clamping 72 hours showing stable ventricular size 07/09 s/p VPS complete explantation PLAN: NSGY Pain control ADAT, OOB IPCs, hold SQH thru POD3 Appreciate Endo recs re blood glucose Patient now has home insulin pump connected Urology and General surgery to document discharge instructions Plan for DC home today Please call anytime with questions or concerns. * Jennifer Sandhu RN - 07/12/2023 9:35 AM EDT Wound Ostomy Continence (WOC) Nursing Reason for visit: Needs assessment of established ostomate (ileal conduit) RN Assigned to Patient During Consult: Jennifer Dorman RN. Assessment/Findings: Patient alert and in bed upon arrival. She is well-established with her ostomy and is typically independent with care. WOC Nursing assisted patient during this acute care stay. Per record, patient isset to discharge today. Ostomy supplies/DME order updated during this admission. Patient desires tohave all of her DMEs provided by one company vs multiple DME providers. [employer] also offers diabetic supplies (and several other medical supplies), patient aware. Hard copy of DME order request provided to patient with [facility]'s telephone #. No further questions/concerns. Type of Stoma: Ileal Conduit Location: RLQ Mucosa, as visualized through pouch: Red/moist Peristomal Skin: Unable to assess, pouch not removed today Output: light yellow urine with mucus Pouching System in Place: Coloplast SenSura Beaver (Medium, 08/21 -1 08/29 ) Deep Convex MAXI Cut to Fit Urostomy Pouch #[id number], Brava moldable ring (4.2 mm) #[id number], Coloplast Brava U-shaped elastic barrier strips #[id number] Expected Wear Time: 3-4 days Extra ostomy supplies at bedside for home-going WOC team will continue to follow patient for ostomy care and education as appropriate. Plan for Next Visit: If patient remains admitted, WO Nursing will follow up 07/13/23 for routine ostomy care Jennifer Sandhu MSN, RN, CWOCN * Thi Lemus RN - 07/12/2023 9:21 AM EDT 07/12/23 0918 Assessment and Discharge Planning Evaluation READMISSION LESS THAN 30 DAYS No READMISSION RISK SCORE IS Rising Risk INTERVIEWED Patient;Chart Review COGNITIVE STATUS Oriented FUNCTIONAL STATUS PRIOR TO ADMISSION Ambulates with medical transcription editor (cane, walker, etc.) (uses walker) LIVING SITUATION Home Alone Number of Steps 2 Bedroom floor level 1 Bathroom Floor Level 1 ADMISSION INSURANCE Medicare Medicare HMO (comment) ([place] [employer]) Transportation to and/or from Appointments Family/Friend Provides Ride Home Oxygen No HOME HEALTH CARE PRIOR TO ADMISSION No Dialysis No DISCUSSSED WHAT HELP PATIENT WOULD NEED Yes SDOH Completed? Yes Reason for Readmisson Risk Score Cancer DX Case Management-Verified address, phone # and insurance with patient. Updated phone # in [employer]. Patient lives alone. Sister and nephew live next door and assist patient as needed. [facility] and will transport home at discharge. Patient independent in ostomy care. Will resume outpt PT after discharge. No case management needs identified. Thi Lemus RN [phone] * Concepción Carter PA-C - 07/12/2023 6:35 AM EDT Images from the original note were not included. [facility] NEUROSUR[facility]ERY DAILY PROGRESS NOTE Overnight Events: No acute events overnight O: Vital sign ranges over the past 24 hours (retrieved 07/12/2023 at 6:35 AM): Tmax (24 hours): 98.4 F (36.9 C) Pulse Av.4 Min: 76 Max: 83 Systolic (24hrs), Av , Min:134 , Max:158 Diastolic (24hrs), Av, Min:53, Max:66 MAP (mmHg) Av.4 mmHg Min: 73 mmHg Max: 91 mmHg Resp Av.1 Min: 15 Max: 18 SpO2 Av.9 % Min: 98 % Max: 100 % Intake/Output Summary (Last 24 hours) at 07/12/2023 0635 Last data filed at 07/12/2023 0500 Gross per 24 hour Intake 860 ml Output 2097 ml Net -1237 ml Fingerstick Glucose Glucose 07/11/23 2233 109 07/11/23 2155 77 07/11/23 2116 66 07/11/23 2051 58 07/11/23 1641 77 07/11/23 1152 93 07/11/23 0742 121 Comment: Notified ALISTAIR KEY MD
LABS: CBC/PT/INR WBC RBC Hgb Hct MCV RDW Plt PT aPTT INR 07/12/23 0049 7.2 3.19 9.0 28.3 89 18.0 595 07/11/23 0137 7.0 2.79 7.9 24.7 89 18.0 648 07/10/23 0955 7.9 24.6 07/10/23 0934 <7.0 18.3 07/10/23 0355 24 07/10/23 0355 0.96 07/10/23 0355 7.2 2.72 7.8 24.2 89 17.7 633 WBC/Diff None Basic Metabolic Panel Na K Cl CO2 Gap Glu BUN Cr Ca Mg PO4 07/12/23 0049 141 3.7 106 27 12 66 8 0.49 8.2 07/11/23 0028 142 3.8 108 26 12 60 9 0.43 8.5 07/10/23 1217 141 4.2 108 24 13 221 13 0.47 8.4 07/10/23 0955 142 3.3 108 07/10/23 0955 >270 07/10/23 0934 138 3.4 107 07/10/23 0934 257 07/10/23 0355 137 4.5 106 23 13 328 11 0.45 8.0 Hepatic/Biliary/Pancreas None Cardiac None Arterial Blood Gases None CSF Culture CSF culture 06/28/23 1508 No Growth Urine Culture None Pyogen Culture None Blood Culture None Exam Oriented x3 PERRL, EOMI FS, TM Speech Intact BUE 5/5, no drift BLE 5/5, no drift SILT Wound: cranial incision c/d/i; right clavicle dressing c/d/i ASSESSMENT: 58 year old year old female PMH of T1DM cb/ DKA, urothelial carcinoma of the bladder s/p radical cystectomy and ileal conduit c/b SBO (Dec 2021), HTN, chronic sinusitis, asthma, persistent encephalopathy and hydrocephalus 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 NSGYconsulted by ACS in setting of patient requiring surgical intervention for SBO and need for possible OR availability to externalize VPS. Valve setting increased to 8 (07/01): 07/01 EVD clamped. Shunt dialed from 7 --> 8 (factory off setting). 07/04 CTH post clamping 72 hours showing stable ventricular size 07/09 s/p VPS complete explantation PLAN: NSGY Pain control ADAT, OOB IPCs, hold SQH thru POD3 Appreciate Endo recs re blood glucose Needs homegoing recs Once cleared by endo, likely medically ready for dispo home Urology and General surgery to document discharge instructions Please call anytime with questions or concerns. Concepción Carter PA-C Neurosurgery Service Pager: [phone] 07/12/2023 - 6:35 AM * Minal Pedraza MD - 07/11/2023 3:19 PM EDT Images from the original note were not included. ENDOCRINOLOGY INPATIENT CONSULTATION Chikis Tobar 58 year old female DOA:06/25/2023 4:11 AM HPI: Chikis Tobar is a 58 year old female who is currently admitted with bowel obstruction and shuntreversal We have been consulted for management of DM Pt has a significant Hx of HTN, T1DM, asthma, meningitis s/p shunt, bladder cancer . Patient on T slim pump but not wearing it here. Out of charge. Could not look at setting. Does not know where spine nurse is From last endo note from [facility] in 03/2023 T1DM since age of 6 C/b DKA in past Basal 0.9/hour Carb ratio 1:9 1:40 sensitivity Prior to coming in BG was in good range per patient ( no hypo or hyperglycemia) GFR 112 A1c 7.4 in 03/2023 C-peptide on 09/16/2013 < 0.1 in care everywhere Subjective: feels better. Still has some pain. Ate dinner and breakfast. No nausea or vomiting. No past medical history on file. Past Surgical History: Procedure Laterality Date REVISION, SHUNT Right 07/10/2023 Procedure: Removal Of Right Frontal Approach Ventriculoperitoneal Shunt, Previously Externalized Below Right Clavicle; Surgeon: Daniel Figueroa MD; Location: [facility]OPER[facility]; Service: Neurosurgery Allergies Allergen Reactions Midazolam Hives and Other Demerol Hcl [Meperidine] Flexeril [Cyclobenzaprine] Orphenadrine Rash and Hives Current Facility-Administered Medications Medication Dose Route Frequency Last Rate Last Admin ceFAZolin (ANCEF) 2,000 mg in dextrose 50 mL ivpb 2,000 mg Intravenous Q8H Antibiotic 100 mL/hr at 07/11/23 0912 2,000 mg at 07/11/23 0912 lisinopril (ZESTRIL) tablet 20 mg Oral Daily 20 mg at 07/11/23 0913 insulin lispro (HumaLOG) 100 UNIT/ML injection 3-7 Units Subcutaneous 3x Daily AC 7 Units at 07/11/23 1320 insulin lispro (HumaLOG) 100 UNIT/ML injection 1-12 Units Subcutaneous 3x Daily AC insulin glargine (LANTUS SOLOSTAR/BASAGLAR KWIKPEN) 100 UNIT/ML PEN injection 30 Units SubcutaneousEvery morning 30 Units at 07/11/23 0913 naloxone (NARCAN) 0.4 MG/ML injection 0.4 mg Intravenous Push PRN psyllium (METAMUCIL) 25 % packet 1 Packet Oral 2x Daily 1 Packet at 07/08/23 1449 senna (SENOKOT) tablet 8.6 mg Oral At Bedtime PRN 8.6 mg at 07/10/23 2136 methocarbamol (ROBAXIN) tablet 500 mg Oral Every 8 hours 500 mg at 07/11/23 0913 acetaminophen (TYLENOL) tablet 650 mg NG Tube Q6H PRN 650 mg at 07/11/23 0512 oxyCODONE immediate release tablet 5 mg NG Tube Q6H PRN 5 mg at 07/11/23 1326 metoprolol (TOPROL-XL) 24 hour tablet 100 mg Oral Daily 100 mg at 07/11/23 0913 ondansetron (ZOFRAN) 4 MG/2ML injection 4 mg Intravenous Push Q6H PRN 4 mg at 07/11/23 1326 hydrophilic wound dressing (TRIAD) external paste Apply externally 2x Daily Given at 07/11/23 0925 Posaconazole (NOXAFIL) [address] TBEC 300 mg Oral Daily 300 mg at 07/11/23 1320 albuterol (PROVENTIL) (2.5 MG/3ML) 0.083% nebulizer solution 2.5 mg Nebulization Q6H PRN dextrose 10 % iv infusion 125 mL Intravenous PRN 999 mL/hr at 07/03/23 0122 125 mL at 07/03/23 0122 Or glucagon (GLUCAGEN) 1 MG injection 1 mg Subcutaneous PRN Or dextrose (GLUTOSE) 40 % oral gel 15 g of glucose Buccal PRN 15 g of glucose at 07/03/23 0100 Or dextrose (GLUTOSE) 40 % oral gel 30 g of glucose Buccal PRN No family history on file. Social History Socioeconomic History Marital status: Single Tobacco Use Smoking status: Never Smokeless tobacco: Never Social Determinants of Health Financial Resource Strain: Low Risk (06/16/2022) Received from [facility] Overall Financial Resource Strain (CARDIA) Difficulty of Paying Living Expenses: Not hard at all Food Insecurity: No Food Insecurity (06/16/2022) Received from [facility] Hunger Vital Sign Worried About Running Out of Food in the Last Year: Never true Ran Out of Food in the Last Year: Never true Transportation Needs: No Transportation Needs (06/16/2022) Received from [facility] PRAPARE - Transportation Lack of Transportation (Medical): No Lack of Transportation (Non-Medical): No PHYSICAL EXAMINATION: O: Vital signs reviewed BP 148/56 (BP Location: right arm) Pulse 77 Temp 98.4 F (36.9 C) (Oral) Resp 16 Ht 5' 6 (1.676 m) Wt 159 lb 6.3 oz (72.3 kg) SpO2 100% BMI 25.73 kg/m last BMI is undetermined because no height found Physical Exam Vitals reviewed. Constitutional: General: Not in acute distress. Appearance: Normal appearance. Not toxic-appearing. HENT: Head: Normocephalic and atraumatic. Eyes: Extraocular Movements: Extraocular movements intact. Cardiovascular: Rate and Rhythm: Normal rate and regular rhythm. Heart sounds: No murmur heard. Pulmonary: Effort: No respiratory distress. Breath sounds: No wheezing. Musculoskeletal: Right lower leg: No edema. Left lower leg: No edema. Skin: General: Skin is warm. Neurological: Mental Status: alert. Psychiatric: Mood and Affect: Mood normal. Behavior: Behavior normal. Thought Content: Thought content normal. Judgment: Judgment normal. LABS Hemoglobin A1c Date Value Ref Range Status 07/10/2023 6.6 (H) 4.0 - 5.6 % Final 03/19/2023 7.4 (H) 4.3 - 5.6 % Final Comment: [place] [employer] guidelines indicate that patients with HgbA1c in the range 5.7-6.4% are at increased risk for development of diabetes, and intervention by lifestyle modification may be beneficial. HgbA1c greater or equal to 6.5% is considered diagnostic of diabetes. 06/10/2022 8.6 (H) 4.3 - 5.6 % Final Comment: [place] [employer] guidelines indicate that patients with HgbA1c in the range 5.7-6.4% are at increased risk for development of diabetes, and intervention by lifestyle modification may be beneficial. HgbA1c greater or equal to 6.5% is considered diagnostic of diabetes. 04/13/2021 8.1 (H) 4.3 - 5.6 % Final Comment: [place] [employer] guidelines indicate that patients with HgbA1c in the range 5.7-6.4% are at increased risk for development of diabetes, and intervention by lifestyle modification may be beneficial. HgbA1c greater or equal to 6.5% is considered diagnostic of diabetes. Fingerstick Glucose (last 72 hours) (Last 10 results in the past 72 hours) Glucose 07/11/23 1152 93 07/11/23 0742 121 Comment: Notified ALISTAIR KEY MD
07/11/23 0350 126 07/11/23 0206 61 07/10/23 2137 71 07/10/23 1647 75 07/10/23 1137 233 07/10/23 1019 289 07/10/23 0920 374 Comment: Will Repeat Test
Notified ALISTAIR KEY MD
Follow Protocol
07/10/23 0858 400 CBC (last 3 years, up to 5 values) (Last 5 results in the past 3 years) WBC RBC Hgb Hct MCV RDW Plt 07/11/23 0137 7.0 2.79 7.9 24.7 89 18.0 648 07/10/23 0955 7.9 24.6 07/10/23 0934 <7.0 18.3 07/10/23 0355 7.2 2.72 7.8 24.2 89 17.7 633 07/09/23 0436 7.7 2.40 7.2 21.3 89 17.6 758 Basic Metabolic Panel (Last 5 results in the past 3 years) Na K Cl CO2 Gap Glu BUN Cr Ca 07/11/23 0028 142 3.8 108 26 12 60 9 0.43 8.5 07/10/23 1217 141 4.2 108 24 13 221 13 0.47 8.4 07/10/23 0955 142 3.3 108 07/10/23 0955 >270 07/10/23 0934 138 3.4 107 07/10/23 0934 257 07/10/23 0355 137 4.5 106 23 13 328 11 0.45 8.0 LFT's (last 3 years, up to 5 values) T Prot Albumin D Bili T Bili Alk Phos ALT AST 06/30/23 0544 4.9 2.9 0.31 1.5 60 12 7 Lipids (last 3 years, up to 5 values) Chol- esterol TG HDL LDL Chol / HDL LDL / HDL Non HDL 06/29/23 0357 199 No results found for: TSH No results found for: CPEPTIDE No results found for: NATALIIA ASSESSMENT: Chikis Tobar is a 58 year old female who is currently admitted with bowel obstruction and shuntreversal We have been consulted for management of DM Patient was on T slim pump but not wearing it here. Out of charge. Could not look at setting. Does not know where spine nurse is Last decadron on in OR 10mg From last endo note from [facility] in 03/2023 T1DM since age of 6 C/b DKA in past Basal 0.9/hour Carb ratio 1:9 1:40 sensitivity Prior to coming in BG was in good range per patient ( no hypo or hyperglycemia) GFR 112 A1c 7.4 in 03/2023 C-peptide on 09/16/2013 < 0.1 in care everywhere A1c now 6.6 \ Patient had low BG likely related to higher dosage of NPH and regular received on OR and documentedlater T1DM with hyperglycemia Recommendations: If patient is staying would do -Lantus = 30 units q 24 hours -Scheduled mealtime Humalog: Decrease to 6 units if eating full meal or 3 units if eating half meal - Change Corrective mealtime Humalog (only before meals, not to be used at bed time): 150 or less = No added Humalog. 151-190 = Add 1 units 191-230 = Add 2 units 231-270 = Add 3 units 271-310 = Add 4 units 311-350 = Add 5 units 351-390 = Add 6 units 391 or more = Add 7 units - Make sure patient is on 60g carb restricted diet - Accuchecks before meals and at bed time If patient is getting discharged tomorrow discussed with patient that we would recommend to ask someone to bring her supplies for pump and at 7 am connect her pump since her last lantus was at 9am today - If not possible to bring pump supplies tomorrow morning and pt receives lantus am, patient will have to wait 24h before being able to connect ipump Would send her with lantus pen in case of emergency with needles and syringes for the Humalog Discussed with patient that she needs a close follow up with her program director/morning show host Plan of care formulated with Dr. Zhane Weinstein DO Endocrinology Fellow Teaching note I saw and evaluated the patient with Dr. Weinstein. I personally obtained the gordon and critical portions of the history and physical exam. I reviewed documentation and discussed the patient with the fellow. I agree with the fellow's medical decision making as documented in Dr Weinstein's note. Dr. Minal Phelan Addendum on 07/12/2023: Reviewed her BG log. Very tightly controlled on lantus 30 units. Recommended lantus 26 units as emergency in case of pump failure. Patient is connected to pump now and will be discharged. Has emergency lantus pen, needles and syringes. Patient contacted her program director/morning show host to get an early appointment Communicated that with team via secure chat Discussed with dr. Zhane Weinstein DO Endocrinology Fellow I discussed the patient with Dr. Weinstein. I reviewed documentation and discussed the patient with the fellow. I agree with the fellow's medical decision making as documented in Dr Weinstein's Note. Dr. Minal Phelan * Isaías Hardin MD - 07/11/2023 6:37 AM EDT Images from the original note were not included. [facility] NEUROSURGERY DAILY PROGRESS NOTE Overnight Events: No acute events overnight POD1 Right Frontal Ventriculoperitoneal Shunt Externalization O: Vital sign ranges over the past 24 hours (retrieved 07/11/2023 at 6:37 AM): Tmax (24 hours): 99.1 F (37.3 C) Pulse Av.2 Min: 79 Max: 101 Systolic (24hrs), Av , Min:130 , Max:172 Diastolic (24hrs), Av, Min:50, Max:87 MAP (mmHg) Av.9 mmHg Min: 74 mmHg Max: 103 mmHg Resp Av.2 Min: 13 Max: 19 SpO2 Av.5 % Min: 96 % Max: 100 % Intake/Output Summary (Last 24 hours) at 07/11/2023 0637 Last data filed at 07/11/2023 0600 Gross per 24 hour Intake 1250 ml Output 2642 ml Net -1392 ml Fingerstick Glucose Glucose 07/11/23 0350 126 07/11/23 0206 61 07/10/23 2137 71 07/10/23 1647 75 07/10/23 1137 233 07/10/23 1019 289 07/10/23 0920 374 Comment: Will Repeat Test
Notified RN YESI LOPEZ
Follow Protocol
07/10/23 0858 400 07/10/23 0740 450 LABS: CBC/PT/INR WBC RBC Hgb Hct MCV RDW Plt PT aPTT INR 07/11/23 0137 7.0 2.79 7.9 24.7 89 18.0 648 07/10/23 0955 7.9 24.6 07/10/23 0934 <7.0 18.3 07/10/23 0355 24 07/10/23 0355 0.96 07/10/23 0355 7.2 2.72 7.8 24.2 89 17.7 633 07/09/23 0436 7.7 2.40 7.2 21.3 89 17.6 758 WBC/Diff None Basic Metabolic Panel Na K Cl CO2 Gap Glu BUN Cr Ca Mg PO4 07/11/23 0028 142 3.8 108 26 12 60 9 0.43 8.5 07/10/23 1217 141 4.2 108 24 13 221 13 0.47 8.4 07/10/23 0955 142 3.3 108 07/10/23 0955 >270 07/10/23 0934 138 3.4 107 07/10/23 0934 257 07/10/23 0355 137 4.5 106 23 13 328 11 0.45 8.0 07/09/23 0436 137 4.2 107 24 10 321 11 0.49 8.1 07/09/23 0436 2.7 Comment: Note updated reference ranges. 07/09/23435 1.7 Comment: Note updated reference ranges. Hepatic/Biliary/Pancreas None Cardiac None Arterial Blood Gases T Site Mode LPM FIO2 pH pCO2 pO2 Sat Base Ex HCO3- A-a 07/10/23 1208 Not Indicated Comment: room air Room Air 07/10/23 0955 18 07/10/23 0934 13 CSF Culture CSF culture 06/28/23 1508 No Growth Urine Culture None Pyogen Culture None Blood Culture None Exam Oriented x3 PERRL, EOMI FS, TM Speech Intact BUE 5/, no drift BLE /, no drift SILT Wound: cranial incision c/d/I; right clavicle dressing c/d/i ASSESSMENT: 58 year old year old female PMH of T1DM cb/ DKA, urothelial carcinoma of the bladder s/p radical cystectomy and ileal conduit c/b SBO (Dec 2021), HTN, chronic sinusitis, asthma, persistent encephalopathy and hydrocephalus 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 NSGYconsulted by ACS in setting of patient requiring surgical intervention for SBO and need for possible OR availability to externalize VPS. Valve setting increased to 8 (07/01): 07/01 EVD clamped. Shunt dialed from 7 --> 8 (factory off setting). 07/04 CTH post clamping 72 hours showing stable ventricular size 07/09 s/p VPS complete explantation PLAN: NSGY Pain control Perioperative abx ADAT, OOB IPCs, hold SQH thru POD3 Appreciate Endo recs re blood glucose Needs homegoing recs Once cleared by endo, likely medically ready for dispo home Please call anytime with questions or concerns. Isaías Hardin MD Neurological Surgery, PGY-2 Service Pager: [phone] 07/11/2023 - 6:38 AM * Jennifer Sandhu, RN - 07/10/2023 2:57 PM EDT Images from the original note were not included. Wound Ostomy Continence (WOC) Nursing Reason for visit: Ostomy Care RN Assigned to Patient During Consult: Nikhil Stearns RN . Assessment/Findings: Patient remains in the SICU. She is due for routine ostomy care of an established stoma (ureter reimplantation this admission). Typically she is independent with care, however, appreciates assistance while in the acute setting. The patient was seen shortly after return from surgery today. Stoma trujillo noted to have migrated out and to be sitting in the pouch-Urology paged and made aware, OK to leave out. Both stents seen with urine output as well as urine coming from the os.An updated ileal conduit DME order was placed during this admission (precut pouches). The patient'smidline remains 100% approximated. Pouch changed successfully at today's visit. Type of Stoma: Ileal Conduit Location: RLQ Pouching System Removed: Removed, from top to bottom, using adhesive remover wipes. Back of flange inspected to assess wear/fit. Seal well intact. Stents Present: Yes, both functioning with drips of urine, stoma trujillo noted to have migrated out-urology aware Stoma Measurement (inches): 1 Mucosa: Red/moist Mucocutaneous Juncture: intact Peristomal Skin: Clear and intact Abdominal Contour: Rounded, shallow depression from 3-9 o'clock Peristomal Tissue: Semi-soft Output: Clear urine with mucus shreds Protrusion: Budded Peristomal Skin Care: Peristomal skin cleansed using soap and water, then dried. Skin then dusted with stomahesive powder, excess powder dusted off. Pouching System Applied: Coloplast SenSura Beaver (Medium, 08/21 -1 08/29 ) Deep Convex MAXI Cut to Fit Urostomy Pouch #[id number], Brava moldable ring (4.2 mm) #[id number], Coloplast Brava U-shaped elastic barrierstrips #[id number] Expected Wear Time: 3-4 days Recommend GI soft diet (when solid food is deemed medically appropriate) for 4-6 weeks post-operatively. Please consider consulting Nutrition for further education and reinforcement. Supplies for 4 pouch changes (2 weeks) left at bedside for discharge/home-going. Updated DME order placed per patient request this admission. WOC team will continue to follow patient for ostomy care. Total Time Spent with Patient: 15 minutes Plan for Next Visit: Pouch change due on 07/13/23, if she remains admitted, per Urology, stents to remain in place Jennifer Sandhu MSN, RN, CWOCN Valentina MENDEZN, RN, CWOCN * Arian Rizo MD - 07/10/2023 10:43 AM EDT NEUROSURGERY POST-OPERATIVE NOTE Intval HPI: Patient is a 58 year old year old female POD #0 s/p Right Frontal Ventriculoperitoneal Shunt Externalization OBJECTIVE: Vitals: Vital sign ranges over the past 24 hours (retrieved 07/10/2023 at 10:43 AM): Tmax (24 hours): 99.1 F (37.3 C) Pulse Av.2 Min: 80 Max: 97 Systolic (24hrs), Av , Min:130 , Max:155 Diastolic (24hrs), Av, Min:54, Max:67 MAP (mmHg) Av.9 mmHg Min: 75 mmHg Max: 88 mmHg Resp Av.4 Min: 16 Max: 22 SpO2 Av.6 % Min: 97 % Max: 100 % In: 2391.3 (33.1 mL/kg) [P.O.:1900; I.V.:491.3 (0.3 mL/kg/hr)] Out: 2730 (37.8 mL/kg) [Urine:2730 (1.6 mL/kg/hr)] Net: -338.8 Weight: 72.3 kg Physical Exam: Waking up from anesthesia Oriented x3 PERRL, EOMI FS, TM Speech Intact BUE 5/5, no drift BLE 5/5, no drift SILT Wound: cranial incision c/d/I; right clavicle dressing c/d/i ASSESSMENT: 58 year old year old female PMH of T1DM cb/ DKA, urothelial carcinoma of the bladder s/p radical cystectomy and ileal conduit c/b SBO (Dec 2021), HTN, chronic sinusitis, asthma, persistent encephalopathy and hydrocephalus 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 NSGYconsulted by ACS in setting of patient requiring surgical intervention for SBO and need for possible OR availability to externalize VPS. Valve setting increased to 8 (07/01): 07/01 EVD clamped. Shunt dialed from 7 --> 8 (factory off setting). 07/04 CTH post clamping 72 hours showing stable ventricular size 07/09 s/p VPS complete explantation PLAN: Neuro as above, stable Pain control Return to SDU when meets PACU criteria Perioperative abx ADAT, OOB IPCs Endocrinology consult for management of hyperglycemia Arian Rizo MD Neurosurgery, Resident Pager: [phone] 07/10/2023 - 10:51 AM Please page the on-call pager after 6pm and on weekends * Nikhil Stearns RN - 07/10/2023 10:23 AM EDT 0745: Pt transported with this RN and [employer] P[employer]ER to Preop for scheduled surgery. VSS pt alert and oriented x4. 1137: Pt back from OR in room 413 on 5W. Pt alert and oriented x4, VSS. * Saige Dang DO - 07/10/2023 7:14 AM EDT Images from the original note were not included. TRAUMA ICU PROGRESS NOTE Patient seen and examined on 07/10/2023 Patient Name: Chikis Tobar Admission Date: 06/25/2023 INTERVAL HISTORY/EVENTS Background: Chikis Tobar is a 58 year old female with history of HTN, type 1 DM (on Insulin pump), asthma, fungal meningitis s/p VPS (on anti-fungals long-term), and bladder cancer s/p cystectomy and ileal conduit in 2021 who on presented on 06/24 with concern for closed loop small bowel obstruction s/p externalization of GEOLOGICAL ENGINEERING TEACHER shunt, EVD, exploratory laparotomy, bilateral ureteroileal reimplant, uretroenterostomy, RONALD, bowel resection on 06/26 (ischemic bowel was encountered and resected, complications included transection of ureters requiring intraoperative urology consult for reimplantation into ileal conduit, neurosurgery was also consulted intraoperatively for externalization given contamination ofVPS). Admitted to ICU for EVD monitoring. Hospital Course: 06/24-06/25: Admitted to EGS for SBO with initial nonop mgmt. 06/26: Taken to OR for EVD externalization, exlap and SBO with IC anastamosis and recon of urostomy. 06/27: Awaiting ROBF. 06/28: NGT removed with return of bowel function. 06/29-06/30: EVD with decreased outputs. 07/01: EVD clamping started. 319: Tolerating EVD clamping 07/04: CT scan in am stable - NSY planning on keeping EVD clamped until Sunday with possible removalTuesday 07/05: NAEO. OR planned for 07/09 with NSY for EVD removal. Floor status. 07/06:NAEON. Diet this AM. NPO at midnight for NSY OR on 07/09 07/07-07/08: NAEON. 07/09: Due for shunt removal in the OR this morning. 24 Hour Events: NAEO. Pain controlled. Continues to have multiple BM, becoming more well formed. OR for EVD removalthis morning. PHYSICAL EXAM Vital Signs: Vital sign ranges over the past 24 hours (retrieved 07/10/2023 at 7:14 AM): Tmax (24 hours): 98.4 F (36.9 C) Pulse Av Min: 87 Max: 112 Systolic (24hrs), Av , Min:134 , Max:155 Diastolic (24hrs), Av, Min:55, Max:67 MAP (mmHg) Av.1 mmHg Min: 77 mmHg Max: 88 mmHg Resp Av.4 Min: 18 Max: 22 SpO2 Av.9 % Min: 97 % Max: 100 % 24 Hour Input/Output In: 2391.3 (33.1 mL/kg) [P.O.:1900; I.V.:491.3 (0.3 mL/kg/hr)] Out: 2730 (37.8 mL/kg) [Urine:2730 (1.6 mL/kg/hr)] Net: -338.8 Weight: 72.3 kg Physical Exam: Constitutional: No distress. Neurological: No focal motor deficits. Cardiovascular: Regular rate and rhythm on tele. Pulmonary: Unlabored breathing on RA. Abdominal: Soft, non-distended, appropriately TTP, ileal conduit pink, TOD with serous output. Musculoskeletal: No edema. LABORATORY RESULTS (LAST 24 HOURS) CBC/PT/INR WBC RBC Hgb Hct MCV RDW Plt PT aPTT INR 07/10/23 0355 24 07/10/23 0355 0.96 07/10/23 0355 7.2 2.72 7.8 24.2 89 17.7 633 07/09/23435 7.7 2.40 7.2 21.3 89 17.6 758 07/08/23441 6.6 2.48 7.8 21.8 88 18.0 581 Basic Metabolic Panel Na K Cl CO2 Gap Glu BUN Cr Ca Mg PO4 07/10/23 0355 137 4.5 106 23 13 328 11 0.45 8.0 07/09/23435 137 4.2 107 24 10 321 11 0.49 8.1 07/09/23435 2.7 Comment: Note updated reference ranges. 07/09/23435 1.7 Comment: Note updated reference ranges. 07/08/23441 141 4.0 110 24 11 149 12 0.45 8.1 07/08/23441 3.6 Comment: Note updated reference ranges. 07/08/23441 1.4 Comment: Note updated reference ranges. Arterial Blood Gases None IMAGING RESULTS (PERSONALLY REVIEWED) CT Head without Contrast 07/08: Stable shunted ventricular system noted. 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), and bladder cancer s/p cystectomy and ileal conduit in 2021 who on presented on 06/24 with concern for closed loop small bowel obstruction s/p externalization of GEOLOGICAL ENGINEERING TEACHER shunt, EVD, exploratory laparotomy, bilateral ureteroileal reimplant, uretroenterostomy, RONALD, bowel resection on 06/26 Diagnosis: - Small bowel obstruction with bowel ischemia - Iatrogenic injury to bilateral ureters with ureteral reimplantation - GE[employer]INE[employer]ER shunt contamination - Externalization of GEOLOGICAL ENGINEERING TEACHER shunt PMHx: - HTN - Type 1 DM (on Insulin pump) - Asthma - 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) - Bladder cancer s/p cystectomy and ileal conduit in 2021 Plan Neurologic : -Fungal meningitis s/p VPS in the past on anti-fungals outpatient -S/p GEOLOGICAL ENGINEERING TEACHER shunt externalization by NSY on 06/26 -NSGY primary -Okay for RNF, q4h NC - Analgesia: PRN Tylenol & Oxycodone & Robaxin - NSGY following: EVD removed today Posaconazole 300mg PO daily for antifungal ppx - ID consulted for duration, 1 year possibly lifelong duration Respiratory Asthma history - Respiratory Automobile Washer Steam Protocol - Bronchopulmonary Hygiene - Incentive Spirometer - No acute resp concerns - PRN Albuterol for history of asthma Cardiovascular Hypertension - Continue home Metoprolol XL 100mg daily, Lisinopril 20mg Daily - PRN Hydralazine and Labetalol for SBP > 160 GI - Continue regular diet - Bowel regimen - Metamucil, Senna - PRN Zofran Renal/ Malignant tumor of urinary bladder - Measure I&O - Daily BMP, Mg, Phos -> replace as needed (Maintain K >4, Phos >3, Mg >2) - Urology following: Maintain b/L stents Okay for TOD drain and stoma trujillo removal just prior to d/c per urology Endo Type 1&2 DM - Hyperglycemic this morning prior to OR and had insulin drip during the OR which was d/c prior to patient returning to the floor - Repeat glucose in 200s. Given morning Lantus this afternoon which was held. - Endo consult per NSGY - Home insulin pump off (patient estimates total daily insulin at home at ~70units - Lantus 20 units - 25 units BID due to hyperglycemia - Sliding scale insulin ACHS Heme - Daily CBC - transfuse PRN ID History of fungal meningitis on chronic antifungals - Zosyn for 4 days post-op (ended 06/30) - Patient on meningitis prophylaxis outpatient with Posaconazole 300 mg PO MSK - Progressive mobility protocol - PT/OT -> Ok for home when medically cleared - Medicine consulted for co-management Prophylaxis: VTE - SCDs, Lovenox 50 BID antiXa level on 07/04 0.36 Tubes/Lines/Drain - EVD - Left abdominal TOD - Ileal conduit - Left arm PICC - PIVs CODE status: Full Code DISPO: Floor Status Follow Up: EGS Urology Neurosurgery Medicine Saige Dang DO Associated attestation - Chery Jenkins MD - 07/11/2023 9:15 PM EDT Teaching Physician Note: I saw and evaluated the patient. I personally obtained the gordon and critical portions of the historyand physical exam. I reviewed the resident's documentation and discussed the patient with the resident. I agree with the resident's medical decision making as documented in the resident's note. Chery Jenkins MD No further critical care needs. EVD removed. Glc ok off insulin gtt and endocrine on board per nsg request ICU team will s/o * Arian Rizo MD - 07/10/2023 6:32 AM EDT Images from the original note were not included. [facility] NEUROSURGERY DAILY PROGRESS NOTE Overnight Events NAEO NPO at [place] for OR today. Preop labs reviewed. O: Vital sign ranges over the past 24 hours (retrieved 07/09/2023 at 8:49 PM): Tmax (24 hours): 98.4 F (36.9 C) Pulse Av.3 Min: 88 Max: 112 Systolic (24hrs), Av , Min:139 , Max:167 Diastolic (24hrs), Av, Min:55, Max:67 MAP (mmHg) Av.1 mmHg Min: 77 mmHg Max: 91 mmHg Resp Av.9 Min: 18 Max: 27 SpO2 Av.6 % Min: 97 % Max: 100 % Intake/Output Summary (Last 24 hours) at 07/09/20232048 Last data filed at 07/09/20231999 Gross per 24 hour Intake 2600 ml Output 2850 ml Net -250 ml Fingerstick Glucose Glucose 07/09/23 1758 272 Comment: Notified RN YESI LOPEZ
07/09/23 1230 375 07/09/23 0804 393 07/08/23 2204 295 LABS: CBC/PT/INR WBC RBC Hgb Hct MCV RDW Plt PT aPTT INR 07/09/23 0436 7.7 2.40 7.2 21.3 89 17.6 758 07/08/232 6.6 2.48 7.8 21.8 88 18.0 581 07/07/237 7.5 2.83 8.0 24.8 88 18.0 639 WBC/Diff None Basic Metabolic Panel Na K Cl CO2 Gap Glu BUN Cr Ca Mg PO4 07/09/23435 137 4.2 107 24 10 321 11 0.49 8.1 07/09/236 2.7 Comment: Note updated reference ranges. 07/09/23435 1.7 Comment: Note updated reference ranges. 07/08/23441 141 4.0 110 24 11 149 12 0.45 8.1 07/08/23441 3.6 Comment: Note updated reference ranges. 07/08/23441 1.4 Comment: Note updated reference ranges. 07/07/23346 143 3.9 110 27 10 98 12 0.40 8.1 07/07/23346 3.4 Comment: Note updated reference ranges. 07/07/23346 1.5 Comment: Note updated reference ranges. Hepatic/Biliary/Pancreas None Cardiac None Arterial Blood Gases None CSF Culture CSF culture 06/28/23 1508 No Growth Urine Culture None Pyogen Culture None Blood Culture None Exam Neurologic Exam Awake, alert Ox3 PERRL EOMI Face symmetric, tongue midline BU 5/5, no drift RLE 5/5 LLE with fracture/splint, wiggles toes Sensation intact to light touch Dressing at clavicle c/d/I Shunt clamped A: 58 year old year old female PMH of T1DM cb/ DKA, urothelial carcinoma of the bladder s/p radical cystectomy and ileal conduit c/b SBO (Dec 2021), HTN, chronic sinusitis, asthma, persistent encephalopathy and hydrocephalus 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 NSGY consulted by ACS in setting of patient requiring surgical intervention for SBO and need for possible OR availability to externalize VPS. Valve setting increased to 8 (07/01): 07/01 EVD clamped. Shunt dialed from 7 --> 8 (factory off setting). 07/04 CTH post clamping 72 hours showing stable ventricular size P: -NSGY now primary, ok for RNF Q4 NC -OR plan for Today 07/09 for explant of hardware of VPS - posted, consented -EVD remains clamped at level of clavicle Please maintain clamping at two places No need to transduce ICPs -Pain control -Cont home metoprolol XL 100mg daily Will cont to monitor for HTN -Diet: NPO at [place] for OR today -Urology following for b/L stents TOD drains removed by Urology -Anemic Cont to monitor H&H Last transfused pRBC 07/04 for hgb of 7.1 -ID Cont posaconazole 300mg PO Plan is for at least 1 year of posaconazole, possibly followed by lifelong secondary prophylaxis No contraindications for shunt explant per discussion with ID staff PICC placed 06/27 -PT/OT Currently skilled for home Will require new evals after explant surgery -SCDs, hold LVX -Further plans pending OR course Please call anytime with questions or concerns. Arian Rizo MD Neurosurgery, Resident Pager: [phone] 07/10/2023 - 6:32 AM Please page the on-call pager after 6pm and on weekends * Chelsie Barbour, ALISTAIR - 07/09/2023 8:28 AM EDT Wound Ostomy Continence (WOC) Nursing Consult Reason for visit: Ostomy appliance seal check RN Assigned to Patient During Consult: Medina Jones, ALISTAIR. Assessment/Findings: Per primary RN, pouch seal assessed and found to remain intact at this time. Extra pouching supplies left at bedside. WOC team will continue to follow patient for ostomy care and education as appropriate. Plan for Next Visit: routine pouch change tomorrow Chelsie Barbour MSN, RN, CWOCN * Saige Dang DO - 07/09/2023 7:32 AM EDT Images from the original note were not included. 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 Admitted to ICU for EVD monitoring. Hospital Course: 06/24-06/25: Admitted to EGS for SBO with initial nonop mgmt. 06/26: Taken to OR for EVD externalization, exlap and SBO with IC anastamosis and recon of urostomy. 06/27: Awaiting ROBF. 06/28: NGT removed with return of bowel function. 06/29-06/30: EVD with decreased outputs. 07/01: EVD clamping started. 319: Tolerating EVD clamping 07/04: CT scan in am stable - NSY planning on keeping EVD clamped until Sunday with possible removalTday 07/05: NAEO. OR planned for 07/09 with NSY for EVD removal. Floor status. 07/06-.: NAEON. Diet this AM. NPO at midnight for NSY OR on 07/09 24 Hour Events: NAEO. Pain controlled. Continues to have multiple BM, becoming more well formed PHYSICAL EXAM Vital Signs: Vital sign ranges over the past 24 hours (retrieved 07/09/2023 at 7:32 AM): Tmax (24 hours): 98.4 F (36.9 C) Pulse Av.6 Min: 78 Max: 111 Systolic (24hrs), Av , Min:137 , Max:167 Diastolic (24hrs), Av, Min:59, Max:64 MAP (mmHg) Av mmHg Min: 81 mmHg Max: 91 mmHg Resp Av Min: 16 Max: 27 SpO2 Av.6 % Min: 97 % Max: 100 % 24 Hour Input/Output In: 1050 (14.5 mL/kg) [P.O.:950; I.V.:100 (0.1 mL/kg/hr)] Out: 2034 (28.1 mL/kg) [Urine:2034 (1.2 mL/kg/hr)] Net: -985 Weight: 72.3 kg Physical Exam: Constitutional: No distress. Neurological: No focal motor deficits. Cardiovascular: Regular rate and rhythm on tele. Pulmonary: Unlabored breathing on RA. Abdominal: Soft, non-distended, appropriately TTP, ileal conduit pink, TOD with serous output. Musculoskeletal: No edema. LABORATORY RESULTS (LAST 24 HOURS) CBC/PT/INR WBC RBC Hgb Hct MCV RDW Plt PT aPTT INR 07/09/23 0436 7.7 2.40 7.2 21.3 89 17.6 758 07/08/23 0442 6.6 2.48 7.8 21.8 88 18.0 581 07/07/23 0347 7.5 2.83 8.0 24.8 88 18.0 639 Basic Metabolic Panel Na K Cl CO2 Gap Glu BUN Cr Ca Mg PO4 07/09/23435 137 4.2 107 24 10 321 11 0.49 8.1 07/09/23435 2.7 Comment: Note updated reference ranges. 07/09/23435 1.7 Comment: Note updated reference ranges. 07/08/23441 141 4.0 110 24 11 149 12 0.45 8.1 07/08/23441 3.6 Comment: Note updated reference ranges. 07/08/23441 1.4 Comment: Note updated reference ranges. 07/07/23346 143 3.9 110 27 10 98 12 0.40 8.1 07/07/23346 3.4 Comment: Note updated reference ranges. 07/07/23346 1.5 Comment: Note updated reference ranges. Arterial Blood Gases None IMAGING RESULTS (PERSONALLY REVIEWED) CT Head without Contrast 07/08: Stable shunted ventricular system noted. 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), and bladder cancer s/p cystectomy and ileal conduit in 2021 who on presented on 06/24 with concern for closed loop small bowel obstruction s/p externalization of GEOLOGICAL ENGINEERING TEACHER shunt, EVD, exploratory laparotomy, bilateral ureteroileal reimplant, uretroenterostomy, RONALD, bowel resection on 06/26 Diagnosis: - Small bowel obstruction with bowel ischemia - Iatrogenic injury to bilateral ureters with ureteral reimplantation - GEOLOG[employer] ENGINEERING TE[employer]ER shunt contamination - Externalization of GEOLOGICAL ENGINEERING TEACHER shunt PMHx: - HTN - Type 1 DM (on Insulin pump) - Asthma - 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) - Bladder cancer s/p cystectomy and ileal conduit in 2021 Plan Neurologic : -Fungal meningitis s/p VPS in the past on anti-fungals outpatient -S/p GEOLOGICAL ENGINEERING TEACHER shunt externalization by NSY on 06/26 -NSGY primary -Okay for RNF, q4h NC - Analgesia: PRN Tylenol & Oxycodone & Robaxin - NSGY following: EVD clamped until Sunday, planned for OR removal Sunday (07/09) Posaconazole 300mg PO daily for antifungal ppx - ID consulted for duration, 1 year possibly lifelong duration Respiratory Asthma history - Respiratory Automobile Washer Steam Protocol - Bronchopulmonary Hygiene - Incentive Spirometer - No acute resp concerns - PRN Albuterol for history of asthma Cardiovascular Hypertension - Continue home Metoprolol XL 100mg daily, Lisinopril 20mg Daily - PRN Hydralazine and Labetalol for SBP > 160 GI - Continue regular diet. NPO at midnight for OR 07/10/23. - Bowel regimen - adding metamucil - PRN Zofran Renal/ Malignant tumor of urinary bladder - Measure I&O - Daily BMP, Mg, Phos -> replace as needed (Maintain K >4, Phos >3, Mg >2) - Urology following: Maintain b/L stents Okay for TOD drain and stoma trujillo removal just prior to d/c per urology Endo Type 1&2 DM - Home insulin pump off (patient estimates total daily insulin at home at ~70units - Lantus 20 units - 25 units BID due to hyperglycemia - Sliding scale insulin ACHS Heme - Daily CBC - transfuse PRN ID History of fungal meningitis on chronic antifungals - Zosyn for 4 days post-op (ended 06/30) - Patient on meningitis prophylaxis outpatient with Posaconazole 300 mg PO MSK - Progressive mobility protocol - PT/OT -> Ok for home when medically cleared - Medicine consulted for co-management Prophylaxis: VTE - SCDs, Lovenox 50 BID antiXa level on 07/04 0.36 Tubes/Lines/Drain - EVD - Left abdominal TOD - Ileal conduit - Left arm PICC - PIVs CODE status: Full Code DISPO: Floor Status Follow Up: EGS Urology Neurosurgery Medicine Saige Dang DO Associated attestation - Chery Jenkins MD - 07/09/2023 5:46 PM EDT Teaching Physician Note: I saw and evaluated the patient. I personally obtained the gordon and critical portions of the historyand physical exam. I reviewed the resident's documentation and discussed the patient with the resident. I agree with the resident's medical decision making as documented in the resident's note. Chery Jenkins MD Tolerated clamped EVD well. To OR tomorrow for removal of GEOLOGICAL ENGINEERING TEACHER shunt No critical care needs * Isaías Hardin MD - 07/09/2023 6:42 AM EDT Images from the original note were not included. [facility] NEUROSURGERY DAILY PROGRESS NOTE [facility], reviewed O: Vital sign ranges over the past 24 hours (retrieved 07/09/2023 at 6:42 AM): Tmax (24 hours): 98.4 F (36.9 C) Pulse Av.6 Min: 78 Max: 111 Systolic (24hrs), Av , Min:137 , Max:167 Diastolic (24hrs), Av, Min:59, Max:64 MAP (mmHg) Av mmHg Min: 81 mmHg Max: 91 mmHg Resp Av Min: 16 Max: 27 SpO2 Av.6 % Min: 97 % Max: 100 % Intake/Output Summary (Last 24 hours) at 07/09/2023 0642 Last data filed at 07/09/2023 0600 Gross per 24 hour Intake 100 ml Output 1935 ml Net -1835 ml Fingerstick Glucose Glucose 07/08/23 2204 295 07/08/23 1754 144 07/08/23 1753 141 07/08/23 1133 277 07/08/23 0736 232 LABS: CBC/PT/INR WBC RBC Hgb Hct MCV RDW Plt PT aPTT INR 07/09/23 0436 7.7 2.40 7.2 21.3 89 17.6 758 07/08/23 0442 6.6 2.48 7.8 21.8 88 18.0 581 07/07/23 0347 7.5 2.83 8.0 24.8 88 18.0 639 WBC/Diff None Basic Metabolic Panel Na K Cl CO2 Gap Glu BUN Cr Ca Mg PO4 07/09/23 0436 137 4.2 107 24 10 321 11 0.49 8.1 07/09/23 0436 2.7 Comment: Note updated reference ranges. 07/09/236 1.7 Comment: Note updated reference ranges. 07/08/23 0442 141 4.0 110 24 11 149 12 0.45 8.1 07/08/23 0442 3.6 Comment: Note updated reference ranges. 07/08/232 1.4 Comment: Note updated reference ranges. 07/07/23346 143 3.9 110 27 10 98 12 0.40 8.1 07/07/23 0347 3.4 Comment: Note updated reference ranges. 07/07/237 1.5 Comment: Note updated reference ranges. Hepatic/Biliary/Pancreas None Cardiac None Arterial Blood Gases None CSF Culture CSF culture 06/28/23 1508 No Growth Urine Culture Urine culture 06/25/23 1508 Positive Culture Report >100,000 CFU/ml Escherichia coli >100,000 CFU/ml Providencia rettgeri Pyogen Culture None Blood Culture None Exam Neurologic Exam Awake, alert Ox3 PERRL EOMI Face symmetric, tongue midline BU 5/5, no drift RLE 5/5 LLE with fracture/splint, wiggles toes Sensation intact to light touch Dressing at clavicle c/d/I Shunt clamped A: 58 year old year old female PMH of T1DM cb/ DKA, urothelial carcinoma of the bladder s/p radical cystectomy and ileal conduit c/b SBO (Dec 2021), HTN, chronic sinusitis, asthma, persistent encephalopathy and hydrocephalus 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 NSGY consulted by ACS in setting of patient requiring surgical intervention for SBO and need for possible OR availability to externalize VPS. Valve setting increased to 8 (07/01): 07/01 EVD clamped. Shunt dialed from 7 --> 8 (factory off setting). 07/04 CTH post clamping 72 hours showing stable ventricular size P: -NSGY now primary, ok for RNF Q4 NC -[facility] reviewed -OR plan for Tues 07/09 for explant of hardware of VPS - posted, consented -EVD remains clamped at level of clavicle Please maintain clamping at two places No need to transduce ICPs -Pain control -Cont home metoprolol XL 100mg daily Will cont to monitor for HTN -Diet: no restrictions per EGS NG tube orders with LIWS -Urology following for b/L stents TOD drains removed by Urology -Anemic Cont to monitor H&H Last transfused pRBC 07/04 for hgb of 7.1 -ID Cont posaconazole 300mg PO Plan is for at least 1 year of posaconazole, possibly followed by lifelong secondary prophylaxis No contraindications for shunt explant per discussion with ID staff -PT/OT Currently skilled for home Will require new evals after explant surgery -SCDs, on LVX (hold 07/09 at midnight) Please call anytime with questions or concerns. Isaías Hardin MD Neurological Surgery, PGY-2 Service Pager: [phone] 07/09/2023 - 6:42 AM * Richard Navarro PA-C - 07/08/2023 8:12 AM EDT Images from the original note were not included. [facility] NEUROSURGERY DAILY PROGRESS NOTE SUBJECTIVE: No acute events overnight. OBJECTIVE: Vitals: Vital sign ranges over the past 24 hours (retrieved 07/08/2023 at 8:13 AM): Tmax (24 hours): 98.5 F (36.9 C) Pulse Av.1 Min: 80 Max: 93 Systolic (24hrs), Av , Min:111 , Max:157 Diastolic (24hrs), Av, Min:44, Max:69 MAP (mmHg) Av.4 mmHg Min: 62 mmHg Max: 92 mmHg Resp Av.7 Min: 14 Max: 22 SpO2 Av.5 % Min: 98 % Max: 100 % In: 1780 (24.6 mL/kg) [P.O.:1780] Out: 2048 (28.3 mL/kg) [Urine:2048 (1.2 mL/kg/hr)] Net: -269 Weight: 72.3 kg Medications: magnesium sulfate 4,000 mg One Time Dose lisinopril 20 mg Daily insulin glargine 20 Units BID methocarbamol 500 mg Every 8 hours metoprolol 100 mg Daily enoxaparin 50 mg 2x Daily hydrophilic wound dressing 2x Daily Posaconazole 300 mg Daily insulin lispro 3-18 Units 4x Daily PC & HS senna 8.6 mg At Bedtime PRN acetaminophen 650 mg Q6H PRN oxyCODONE 5 mg Q6H PRN ondansetron 4 mg Q6H PRN albuterol 2.5 mg Q6H PRN labetalol 20 mg Q6H PRN hydrALAZINE 10 mg Q6H PRN dextrose iv for hypoglycemia orderable 125 mL PRN Or glucagon 1 mg PRN Or dextrose 15 g of glucose PRN Or dextrose 30 g of glucose PRN Labs: CBC/PT/INR WBC RBC Hgb Hct MCV RDW Plt PT aPTT INR 07/08/23441 6.6 2.48 7.8 21.8 88 18.0 581 07/07/23346 7.5 2.83 8.0 24.8 88 18.0 639 07/06/23130 9.4 3.17 8.9 27.9 88 18.9 671 07/05/23 1101 8.2 3.08 8.8 26.9 87 19.1 560 WBC/Diff None Basic Metabolic Panel Na K Cl CO2 Gap Glu BUN Cr Ca Mg PO4 07/08/23441 141 4.0 110 24 11 149 12 0.45 8.1 07/08/23441 3.6 Comment: Note updated reference ranges. 07/08/23441 1.4 Comment: Note updated reference ranges. 07/07/23346 143 3.9 110 27 10 98 12 0.40 8.1 07/07/23346 3.4 Comment: Note updated reference ranges. 07/07/23346 1.5 Comment: Note updated reference ranges. 07/06/23130 2.9 Comment: Note updated reference ranges. 07/06/23130 1.7 Comment: Note updated reference ranges. 07/06/23 0131 141 4.3 108 26 11 141 10 0.49 8.4 CSF Culture CSF culture 06/28/23 1508 No Growth Urine Culture Urine culture 06/25/23 1508 Positive Culture Report >100,000 CFU/ml Escherichia coli >100,000 CFU/ml Providencia rettgeri Pyogen Culture None Blood Culture None Sputum Culture None Physical Exam: Neurologic Exam Awake, alert Ox3 PERRL EOMI Face symmetric, tongue midline BU 5/5, no drift RLE 5/5 LLE with fracture/splint, wiggles toes Sensation intact to light touch Dressing at clavicle c/d/I Shunt patent A: 58 year old year old female PMH of T1DM cb/ DKA, urothelial carcinoma of the bladder s/p radical cystectomy and ileal conduit c/b SBO (Dec 2021), HTN, chronic sinusitis, asthma, persistent encephalopathy and hydrocephalus 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 NSGY consulted by ACS in setting of patient requiring surgical intervention for SBO and need for possible OR availability to externalize VPS. Valve setting increased to 8 (07/01): 07/01 EVD clamped. Shunt dialed from 7 --> 8 (factory off setting). 07/04 CTH post clamping 72 hours showing stable ventricular size P: -NSGY now primary, ok for RNF Q4 NC -rCTH Sunday morning, 07/08 AM Ordered -OR plan for 07/09 for explant of hardware of VPS - posted, consented -EVD remains clamped at level of clavicle Please maintain clamping at two places No need to transduce ICPs -Pain control -Cont home metoprolol XL 100mg daily Will cont to monitor for HTN -Diet: no restrictions per EGS NG tube orders with LIWS -Urology following for b/L stents TOD drains removed by Urology -Anemic Cont to monitor H&H Last transfused pRBC 07/04 for hgb of 7.1 -ID Cont posaconazole 300mg PO Plan is for at least 1 year of posaconazole, possibly followed by lifelong secondary prophylaxis No contraindications for shunt explant per discussion with ID staff -PT/OT Currently skilled for home Will require new evals after explant surgery -SCDs, on LVX, will transition to SQH (hold 07/09 at midnight) Richard Navarro PA-C Neurosurgery Pager: [phone] * Rihcard Navarro PA-C - 07/07/2023 9:11 AM EDT Images from the original note were not included. [facility] NEUROSURGERY DAILY PROGRESS NOTE SUBJECTIVE: No acute events overnight. OBJECTIVE: Vitals: Vital sign ranges over the past 24 hours (retrieved 07/07/2023 at 9:13 AM): Tmax (24 hours): 98.7 F (37.1 C) Pulse Av.4 Min: 74 Max: 97 Systolic (24hrs), Av , Min:139 , Max:176 Diastolic (24hrs), Av, Min:53, Max:69 MAP (mmHg) Av.8 mmHg Min: 81 mmHg Max: 93 mmHg Resp Av.6 Min: 14 Max: 27 SpO2 Av.6 % Min: 98 % Max: 100 % In: 1200 (16.6 mL/kg) [P.O.:1200] Out: 2700 (37.3 mL/kg) [Urine:2525 (1.5 mL/kg/hr); Drainage:175] Net: -1500 Weight: 72.3 kg Medications: lisinopril 20 mg Daily insulin glargine 20 Units BID methocarbamol 500 mg Every 8 hours metoprolol 100 mg Daily enoxaparin 50 mg 2x Daily hydrophilic wound dressing 2x Daily Posaconazole 300 mg Daily insulin lispro 3-18 Units 4x Daily PC & HS senna 8.6 mg At Bedtime PRN acetaminophen 650 mg Q6H PRN oxyCODONE 5 mg Q6H PRN ondansetron 4 mg Q6H PRN albuterol 2.5 mg Q6H PRN labetalol 20 mg Q6H PRN hydrALAZINE 10 mg Q6H PRN dextrose iv for hypoglycemia orderable 125 mL PRN Or glucagon 1 mg PRN Or dextrose 15 g of glucose PRN Or dextrose 30 g of glucose PRN Labs: CBC/PT/INR WBC RBC Hgb Hct MCV RDW Plt PT aPTT INR 07/07/23 0347 7.5 2.83 8.0 24.8 88 18.0 639 07/06/23 0131 9.4 3.17 8.9 27.9 88 18.9 671 07/05/23 1101 8.2 3.08 8.8 26.9 87 19.1 560 07/05/23 0249 7.3 2.43 7.1 22.1 91 15.6 507 07/05/23 0206 7.3 2.43 7.0 22.1 91 15.6 487 WBC/Diff None Basic Metabolic Panel Na K Cl CO2 Gap Glu BUN Cr Ca Mg PO4 07/07/23 034 143 3.9 110 27 10 98 12 0.40 8.1 07/07/23 0347 3.4 Comment: Note updated reference ranges. 07/07/23 034 1.5 Comment: Note updated reference ranges. 07/06/23130 2.9 Comment: Note updated reference ranges. 07/06/23130 1.7 Comment: Note updated reference ranges. 07/06/23130 141 4.3 108 26 11 141 10 0.49 8.4 07/05/23 0206 3.6 Comment: Note updated reference ranges. 07/05/23 0206 1.8 Comment: Note updated reference ranges. 07/05/23 020 143 4.2 111 28 8 68 11 0.40 7.8 CSF Culture CSF culture 06/28/23 1508 No Growth Urine Culture Urine culture 06/25/23 1508 Positive Culture Report >100,000 CFU/ml Escherichia coli >100,000 CFU/ml Providencia rettgeri Pyogen Culture None Blood Culture None Sputum Culture None Physical Exam: Neurologic Exam Awake, alert Ox3 PERRL EOMI Face symmetric, tongue midline BU 5/5, no drift RLE 5/5 LLE with fracture/splint, wiggles toes Sensation intact to light touch Dressing at clavicle c/d/I Shunt patent A: 58 year old year old female PMH of T1DM cb/ DKA, urothelial carcinoma of the bladder s/p radical cystectomy and ileal conduit c/b SBO (Dec 2021), HTN, chronic sinusitis, asthma, persistent encephalopathy and hydrocephalus 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 NSGY consulted by ACS in setting of patient requiring surgical intervention for SBO and need for possible OR availability to externalize VPS. Valve setting increased to 8 (07/01): 07/01 EVD clamped. Shunt dialed from 7 --> 8 (factory off setting). 07/04 CTH post clamping 72 hours showing stable ventricular size P: -NSGY now primary, ok for RNF Q4 NC -[facility] Sunday morning, 07/08 AM Ordered -OR plan for 07/09 for explant of hardware of VPS - posted, consented -EVD remains clamped at level of clavicle Please maintain clamping at two places No need to transduce ICPs -Pain control -Cont home metoprolol XL 100mg daily Will cont to monitor for HTN -Diet: no restrictions per EGS NG tube orders with LIWS -Urology following for b/L stents TOD drains removed by Urology -Anemic Cont to monitor H&H Last transfused pRBC 07/04 for hgb of 7.1 -ID Cont posaconazole 300mg PO Plan is for at least 1 year of posaconazole, possibly followed by lifelong secondary prophylaxis No contraindications for shunt explant per discussion with ID staff -PT/OT Currently skilled for home Will require new evals after explant surgery -SCDs, on LVX, will transition to H Richard Navarro PA-C Neurosurgery Pager: [phone] * Liat Guzmán MD - 07/07/2023 8:29 AM EDT Images from the original note were not included. 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 Admitted to ICU for EVD monitoring. Hospital Course: 06/24-06/25: Admitted to EGS for SBO with initial nonop mgmt. 06/26: Taken to OR for EVD externalization, exlap and SBO with IC anastamosis and recon of urostomy. 06/27: Awaiting ROBF. 06/28: NGT removed with return of bowel function. 06/29-06/30: EVD with decreased outputs. 07/01: EVD clamping started. 319: Tolerating EVD clamping 07/04: CT scan in am stable - NSY planning on keeping EVD clamped until Sunday with possible removalT07/05: NAEO. OR planned for 07/09 with NSY for EVD removal. Floor status 24 Hour Events: NAEO. Pain controlled. Doing well PHYSICAL EXAM Vital Signs: Vital sign ranges over the past 24 hours (retrieved 07/07/2023 at 8:29 AM): Tmax (24 hours): 98.7 F (37.1 C) Pulse Av.4 Min: 74 Max: 97 Systolic (24hrs), Av , Min:139 , Max:176 Diastolic (24hrs), Av, Min:53, Max:69 MAP (mmHg) Av.8 mmHg Min: 81 mmHg Max: 93 mmHg Resp Av.6 Min: 14 Max: 27 SpO2 Av.6 % Min: 98 % Max: 100 % 24 Hour Input/Output In: 1200 (16.6 mL/kg) [P.O.:1200] Out: 2700 (37.3 mL/kg) [Urine:2525 (1.5 mL/kg/hr); Drainage:175] Net: -1500 Weight: 72.3 kg Physical Exam: Constitutional: No distress. Neurological: No focal motor deficits. Cardiovascular: Regular rate and rhythm on tele. Pulmonary: Unlabored breathing on RA. Abdominal: Soft, non-distended, appropriately TTP, ileal conduit pink, TOD with serous output. Musculoskeletal: No edema. LABORATORY RESULTS (LAST 24 HOURS) CBC/PT/INR WBC RBC Hgb Hct MCV RDW Plt PT aPTT INR 07/07/23 0347 7.5 2.83 8.0 24.8 88 18.0 639 07/06/23 0131 9.4 3.17 8.9 27.9 88 18.9 671 07/05/23 1101 8.2 3.08 8.8 26.9 87 19.1 560 07/05/23 0249 7.3 2.43 7.1 22.1 91 15.6 507 07/05/23 0206 7.3 2.43 7.0 22.1 91 15.6 487 Basic Metabolic Panel Na K Cl CO2 Gap Glu BUN Cr Ca Mg PO4 07/07/23 0347 143 3.9 110 27 10 98 12 0.40 8.1 07/07/23346 3.4 Comment: Note updated reference ranges. 07/07/23346 1.5 Comment: Note updated reference ranges. 07/06/23130 2.9 Comment: Note updated reference ranges. 07/06/23130 1.7 Comment: Note updated reference ranges. 07/06/23130 141 4.3 108 26 11 141 10 0.49 8.4 07/05/23205 3.6 Comment: Note updated reference ranges. 07/05/23205 1.8 Comment: Note updated reference ranges. 07/05/23205 143 4.2 111 28 8 68 11 0.40 7.8 Arterial Blood Gases None IMAGING RESULTS (PERSONALLY REVIEWED) None today. 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), and bladder cancer s/p cystectomy and ileal conduit in 2021 who on presented on 06/24 with concern for closed loop small bowel obstruction s/p externalization of GEOLOGICAL ENGINEERING TEACHER shunt, EVD, exploratory laparotomy, bilateral ureteroileal reimplant, uretroenterostomy, RONALD, bowel resection on 06/26 Diagnosis: - Small bowel obstruction with bowel ischemia - Iatrogenic injury to bilateral ureters with ureteral reimplantation - GEOLOGICAL ENGINEERING TEACHER shunt contamination - Externalization of GEOLOGICAL ENGINEERING TEACHER shunt PMHx: - HTN - Type 1 DM (on Insulin pump) - Asthma - 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) - Bladder cancer s/p cystectomy and ileal conduit in 2021 Plan Neurologic - Analgesia: PRN Tylenol & Oxycodone - NSY following: EVD clamped until Sunday, posible OR removal Sunday per NSY Posaconazole 300mg PO daily for antifungal ppx - ID consulted for duration, 1 year possibly lifelong duration Respiratory - Respiratory Automobile Washer Steam Protocol - Bronchopulmonary Hygiene - Incentive Spirometer - No acute resp concerns - PRN Albuterol for history of asthma Cardiovascular - Continue home Metoprolol XL 100mg daily - PRN Hydralazine and Labetalol for SBP > 160 GI - Continue regular diet - Bowel regimen - PRN Zofran Renal/ - Measure I&O - Daily BMP, Mg, Phos -> replace as needed (Maintain K >4, Phos >3, Mg >2) - Urology following: Maintain b/L stents Okay for TOD drain and stoma trujillo removal just prior to d/c per urology Endo - Home insulin pump off (patient estimates total daily insulin at home at ~70units - Lantus 20 units BID due to lower sugars - pt withheld lantus yesterday and sugars became elevated - improved this morning after evening dose - Sliding scale insulin ACHS Heme - hg stable - Daily CBC - transfuse PRN ID - Zosyn for 4 days post-op (ended 06/30) - Patient on meningitis prophylaxis outpatient with Posaconazole 300 mg PO MSK - Progressive mobility protocol - PT/OT -> Ok for home when medically cleared - Medicine consulted for co-management Prophylaxis: VTE - SCDs, Lovenox 50 BID antiXa level on 07/04 0.36 Tubes/Lines/Drain - EVD - Left abdominal TOD - Ileal conduit - Left arm PICC - PIVs CODE status: Full Code DISPO: TICU Follow Up: EGS Urology Neurosurgery Medicine Fernando Willis MD Critical Care Provider Statement I saw and evaluated the patient. I personally obtained the gordon and critical portions of the historyand physical exam. I reviewed the resident's documentation and discussed the patient with the resident. I agree with the resident's medical decision making as documented in the resident's note. Critical care was necessary because of an illness or injury that acutely impaired one or more vitalorgans systems such that there was a high probability of imminent or life threatening deteriorationin the patient s condition. The following organ systems are involved: neuro, integument Critical care time was provided for 20 minutes by the attending physician. The time involved in theperformance of this care was exclusive of separately billable procedures, teaching time and treating other patients. This time was spent personally by the attending physician for the following activities: examination of patient, ordering and/or performing treatments, ordering and reviewing laboratory and radiographic studies, and if applicable, ventilatory management and blood gas interpretation. River Guzmán MD MPH ICU Attending * Ramon Sandy MD - 07/06/2023 6:41 PM EDT Images from the original note were not included. UROLOGY PROGRESS NOTE Subjective: Feels well. Physical Exam: Vital sign ranges over the past 24 hours (retrieved 07/06/2023 at 6:41 PM): Tmax (24 hours): 98.6 F (37 C) Pulse Av.5 Min: 74 Max: 97 Systolic (24hrs), Av , Min:124 , Max:176 Diastolic (24hrs), Av, Min:46, Max:64 MAP (mmHg) Av.3 mmHg Min: 68 mmHg Max: 93 mmHg Resp Av.4 Min: 13 Max: 26 SpO2 Av.4 % Min: 98 % Max: 100 % Gen: Alert, well developed, lying in bed HEENT: moist mucous membranes CV: RRR Pulm: Non labored on RA ABD: Soft, mildly distended, appropriately tender to palpation. No guarding/rebound. Midline incision c/d/I with lorna, TOD serous : stoma pink with 2 ureteral stents (L at an angle), urine clear yellow Neuro: No focal deficits, Ox3, appropriate Ext: no edema, warm and dry Psych: appropriate mood and behavior Ins and Outs: In: 958 (13.3 mL/kg) [P.O.:958] Out: 3300 (45.6 mL/kg) [Urine:3055 (1.8 mL/kg/hr); Drainage:245] Net: -234 Weight: 72.3 kg Date 07/06/23 0700 - 07/07/23 0659 Shift 3486-7321 2207-4287 6168-1406 24 Hour Total INTAKE P.O. 122 203 5878 Shift Total(mL/kg) 720(10) 480(6.6) 1200(16.6) OUTPUT Urine(mL/kg/hr) 835(1.4) 360 1195 Drainage 145 30 175 Shift Total(mL/kg) 980(13.6) 390(5.4) 1370(18.9) Weight (kg) 72.3 72.3 72.3 72.3 Medications: Scheduled lisinopril 20 mg Daily insulin glargine 20 Units BID methocarbamol 500 mg Every 8 hours metoprolol 100 mg Daily enoxaparin 50 mg 2x Daily hydrophilic wound dressing 2x Daily Posaconazole 300 mg Daily insulin lispro 3-18 Units 4x Daily PC & HS PRN senna 8.6 mg At Bedtime PRN acetaminophen 650 mg Q6H PRN oxyCODONE 5 mg Q6H PRN ondansetron 4 mg Q6H PRN albuterol 2.5 mg Q6H PRN labetalol 20 mg Q6H PRN hydrALAZINE 10 mg Q6H PRN dextrose iv for hypoglycemia orderable 125 mL PRN Or glucagon 1 mg PRN Or dextrose 15 g of glucose PRN Or dextrose 30 g of glucose PRN IV Labs: Basic Metabolic Panel Na K Cl CO2 Gap Glu BUN Cr Ca Mg PO4 07/06/23 013 2.9 Comment: Note updated reference ranges. 07/06/23 013 1.7 Comment: Note updated reference ranges. 07/06/23130 141 4.3 108 26 11 141 10 0.49 8.4 07/05/23 0206 3.6 Comment: Note updated reference ranges. 07/05/23 0206 1.8 Comment: Note updated reference ranges. 07/05/23 020 143 4.2 111 28 8 68 11 0.40 7.8 07/04/23 0516 141 3.8 115 23 7 115 10 0.39 7.0 07/04/23 0516 2.4 Comment: Note updated reference ranges. 07/04/23 0516 1.7 Comment: Note updated reference ranges. CBC/PT/INR WBC RBC Hgb Hct MCV RDW Plt PT aPTT INR 07/06/23130 9.4 3.17 8.9 27.9 88 18.9 671 07/05/23 1101 8.2 3.08 8.8 26.9 87 19.1 560 07/05/23 0249 7.3 2.43 7.1 22.1 91 15.6 507 07/05/23 0206 7.3 2.43 7.0 22.1 91 15.6 487 07/04/23 0709 10.3 3.05 9.1 28.1 92 15.9 503 07/04/23 0516 -- Comment: Contaminated,please resubmit. This is a corrected result. Previous result on 07/04/2023 at 05 EDT was 7.1 K/uL [C] -- Comment: Contaminated,please resubmit. This is a corrected result. Previous result on 07/04/2023 at 05 EDT was 2.25 M/uL [C] -- Comment: Contaminated,please resubmit. This is a corrected result. Previous result on 07/04/2023 at [facility] EDT was 6.8 g/dL [C] -- Comment: Contaminated,please resubmit. This is a corrected result. Previous result on 07/04/2023 at [facility] EDT was 20.7 % [C] -- Comment: Contaminated,please resubmit. This is a corrected result. Previous result on 07/04/2023 at [facility] EDT was 92 fL [C] -- Comment: Contaminated,please resubmit. This is a corrected result. Previous result on 07/04/2023 at 0538 EDT was 15.5 % [C] -- Comment: Contaminated,please resubmit. This is a corrected result. Previous result on 07/04/2023 at 05 EDT was 381 K/uL [C] [C] - Corrected Result WBC/Diff None Arterial Blood Gases None Hepatic/Biliary/Pancreas None Fingerstick Glucose (last 72 hours) (Last 10 results in the past 72 hours) Glucose 07/06/23 1657 281 07/06/23 1220 296 07/06/23 0759 72 07/05/23 2057 247 07/05/23 2056 250 Comment: Notified ALISTAIR KEY MD
07/05/23 1611 250 07/05/23 1610 249 07/05/23 1201 91 07/05/23 0800 95 07/05/23 0536 103 Cultures: Blood Culture None Urine Culture Urine culture 06/25/23 1508 Positive Culture Report >100,000 CFU/ml Escherichia coli >100,000 CFU/ml Providencia rettgeri Assessment/ Plan: Chikis Tobar is a 58 year old female with a history of micropapillary bladder ca s/p robotic RC/IC in 2021 at [facility], T1DM, 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 Presented to the ED 06/25 and was found to have a closed loop bowel obstruction. Now s/p XL, bowel resection w/ primary anastomosis, b/L ureteral reimplant on 06/26. 07/01 TOD Cr negative -TOD removed - will remove stoma trujillo just prior to discharge - Maintain b/L ureteral stents on discharge - WOCN consult for stoma care and supplies - Patient prefers to follow up with [facility] rather than [facility]. will arrange for urology follow-up in ~2 weeks and likely will remove ureteral stents at that time Patient d/w chief resident Dr. Jessica Sandy MD Urology PGY-2 Pager [phone] * Jennifer Sandhu RN - 07/06/2023 12:58 PM EDT Images from the original note were not included. Wound Ostomy Continence (WOC) Nursing Reason for visit: Ostomy Care RN Assigned to Patient During Consult: Alvin Patton, ALISTAIR. Assessment/Findings: Patient alert and OOB to chair, accepting of ileal conduit pouch change which is due today. She's an experienced ostomate (urostomy created in 2021 @ [facility]), needing assistance with hands-on care post-operatively, while she is recovering. Patient requesting assistance with updating DME order as the one she had previously on file with a DME company based out of [place] has . She uses a 1 pre-cut of the pouching system placed today (see below). The patient's left stentwas noted to have a steady trickle of urine, the right stent was very slow to drip, but urine was observed. There is also a stoma trujillo in place. Urine was also noted to be flowing around all the tubes via stoma. The pouching system was changed successfully at today's visit. The patient's midline remains 100% approximated with lorna with a small amount of crusting present. There is a TOD drain in the LLQ. Both the midline and TOD site were washed with soap and water at my visit today. Type of Stoma: Ileal Conduit Location: RLQ Pouching System Removed: Removed, from top to bottom, using adhesive remover wipes. Back of flange inspected to assess wear/fit. Minimal circumferential bloating noted. Stent/Trujillo Present: 2 stents and a stoma trujillo, all noted to have urine output Stoma Measurement (inches): Approximately 1 Mucosa: Red/moist Mucocutaneous Juncture: intact Peristomal Skin: Clear and intact Abdominal Contour: Rounded with slight concave depression from 3-9 o'clock Peristomal Tissue: Soft Output: Tea colored urine with mucus Protrusion: Budded Peristomal Skin Care: Peristomal skin cleansed using soap and water, then dried. Skin then dusted with stomahesive powder, excess powder dusted off. Pouching System Applied: Coloplast SenSura Beaver (Medium, up to 1-16 ) Deep Convex MAXI Cut to Fit Drainable Pouch #[id number], Brava moldable ring (4.2 mm) #[id number], Coloplast Brava U-shaped elastic barrier strips #[id number], to gravity drainage Expected Wear Time: 3-4 days Education Provided: n/a, patient is established and proficient with care Supplies for 4 pouch changes (2 weeks) left at bedside for discharge/home-going. New DME order placed. WOC team will continue to follow patient for ostomy care, as appropriate. Total Time Spent with Patient: 35 minutes Plan for Next Visit: Seal check 07/09/23. Pouch change due on 07/10/23. The pouching described above was selected by a Certified Ostomy Nurse, specifically for this patient. If an alternative pouch is used for this patient without proper fitting, the chance of the pouch leaking could increase significantly, leading to issues with raquel-stomal skin integrity and future po uching difficulties. Therefore, it is important to make every effort to maintain the appropriate pouching system (or one that is comparable) in order to maintain a successful and adequate seal. Jennifer Sandhu MSN, RN, CWOCN * Liat Guzmán MD - 07/06/2023 10:33 AM EDT Images from the original note were not included. 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 Admitted to ICU for EVD monitoring. Hospital Course: 06/24-06/25: Admitted to EGS for SBO with initial nonop mgmt. 06/26: Taken to OR for EVD externalization, exlap and SBO with IC anastamosis and recon of urostomy. 06/27: Awaiting ROBF. 06/28: NGT removed with return of bowel function. 06/29-06/30: EVD with decreased outputs. 07/01: EVD clamping started. 319: Tolerating EVD clamping 07/04: CT scan in am stable - NSY planning on keeping EVD clamped until Sunday with possible removalTuesday 07/05: NAEO. OR planned for 07/09 with NSY for EVD removal. Floor status 24 Hour Events: NAEON, pain controlled. Resting comfortable. Having bowel fxn, urine output appropriate PHYSICAL EXAM Vital Signs: Vital sign ranges over the past 24 hours (retrieved 07/06/2023 at 10:33 AM): Tmax (24 hours): 98.5 F (36.9 C) Pulse Av.2 Min: 74 Max: 90 Systolic (24hrs), Av , Min:124 , Max:158 Diastolic (24hrs), Av, Min:46, Max:68 MAP (mmHg) Av.9 mmHg Min: 68 mmHg Max: 90 mmHg Resp Av.9 Min: 13 Max: 26 SpO2 Av.4 % Min: 98 % Max: 100 % 24 Hour Input/Output In: 1186.5 (16.4 mL/kg) [P.O.:714; I.V.:150 (0.1 mL/kg/hr)] Out: 3470 (48 mL/kg) [Urine:3230 (1.9 mL/kg/hr); Drainage:240] Net: -2283.5 Weight: 72.3 kg Physical Exam: Constitutional: No distress. Neurological: No focal motor deficits. Cardiovascular: Regular rate and rhythm on tele. Pulmonary: Unlabored breathing on RA. Abdominal: Soft, non-distended, appropriately TTP, ileal conduit pink, TOD with serous output. Musculoskeletal: No edema. No change from 07/04 LABORATORY RESULTS (LAST 24 HOURS) CBC/PT/INR WBC RBC Hgb Hct MCV RDW Plt PT aPTT INR 07/06/23 0131 9.4 3.17 8.9 27.9 88 18.9 671 07/05/23 1101 8.2 3.08 8.8 26.9 87 19.1 560 07/05/23 0249 7.3 2.43 7.1 22.1 91 15.6 507 07/05/23 0206 7.3 2.43 7.0 22.1 91 15.6 487 07/04/23 0709 10.3 3.05 9.1 28.1 92 15.9 503 07/04/2316 -- Comment: Contaminated,please resubmit. This is a corrected result. Previous result on 07/04/2023 at 0538 EDT was 7.1 K/uL [C] -- Comment: Contaminated,please resubmit. This is a corrected result. Previous result on 07/04/2023 at 0538 EDT was 2.25 M/uL [C] -- Comment: Contaminated,please resubmit. This is a corrected result. Previous result on 07/04/2023 at 0538 EDT was 6.8 g/dL [C] -- Comment: Contaminated,please resubmit. This is a corrected result. Previous result on 07/04/2023 at 0538 EDT was 20.7 % [C] -- Comment: Contaminated,please resubmit. This is a corrected result. Previous result on 07/04/2023 at 0538 EDT was 92 fL [C] -- Comment: Contaminated,please resubmit. This is a corrected result. Previous result on 07/04/2023 at 0538 EDT was 15.5 % [C] -- Comment: Contaminated,please resubmit. This is a corrected result. Previous result on 07/04/2023 at 0538 EDT was 381 K/uL [C] [C] - Corrected Result Basic Metabolic Panel Na K Cl CO2 Gap Glu BUN Cr Ca Mg PO4 07/06/23130 2.9 Comment: Note updated reference ranges. 07/06/23130 1.7 Comment: Note updated reference ranges. 07/06/23130 141 4.3 108 26 11 141 10 0.49 8.4 07/05/23205 3.6 Comment: Note updated reference ranges. 07/05/23205 1.8 Comment: Note updated reference ranges. 07/05/23205 143 4.2 111 28 8 68 11 0.40 7.8 07/04/23515 141 3.8 115 23 7 115 10 0.39 7.0 07/04/23515 2.4 Comment: Note updated reference ranges. 07/04/23515 1.7 Comment: Note updated reference ranges. 07/03/23 1351 138 4.3 107 26 9 283 11 0.51 7.7 Arterial Blood Gases None IMAGING RESULTS (PERSONALLY REVIEWED) None today. 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), and bladder cancer s/p cystectomy and ileal conduit in 2021 who on presented on 06/24 with concern for closed loop small bowel obstruction s/p externalization of GEOLOGICAL ENGINEERING TEACHER shunt, EVD, exploratory laparotomy, bilateral ureteroileal reimplant, uretroenterostomy, RONALD, bowel resection on 06/26 Diagnosis: - Small bowel obstruction with bowel ischemia - Iatrogenic injury to bilateral ureters with ureteral reimplantation - GEOLOGICAL ENGINEERING TEACHER shunt contamination - Externalization of GEOLOGICAL ENGINEERING TEACHER shunt PMHx: - HTN - Type 1 DM (on Insulin pump) - Asthma - 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) - Bladder cancer s/p cystectomy and ileal conduit in 2021 Plan Neurologic - Analgesia: PRN Tylenol & Oxycodone - NSY following: EVD clamped until Sunday, posible OR removal Sunday per Posaconazole 300mg PO daily for antifungal ppx Respiratory - Respiratory Automobile Washer Steam Protocol - Bronchopulmonary Hygiene - Incentive Spirometer - No acute resp concerns - PRN Albuterol for history of asthma Cardiovascular - Continue home Metoprolol XL 100mg daily - PRN Hydralazine and Labetalol for SBP > 160 GI - Continue regular diet - Bowel regimen - PRN Zofran Renal/ - Measure I&O - Daily BMP, Mg, Phos -> replace as needed (Maintain K >4, Phos >3, Mg >2) - Urology following: Maintain b/L stents Okay for TOD drain and stoma trujillo removal just prior to d/c per urology Endo - Home insulin pump off (patient estimates total daily insulin at home at ~70units - Lantus 20 units BID due to lower sugars - pt withheld lantus yesterday and sugars became elevated - improved this morning after evening dose - Sliding scale insulin ACHS Heme - hg stable - Daily CBC - transfuse PRN ID - Zosyn for 4 days post-op (ended 06/30) - Patient on meningitis prophylaxis outpatient with Posaconazole 300 mg PO MSK - Progressive mobility protocol - PT/OT -> Ok for home when medically cleared Prophylaxis: VTE - SCDs, Lovenox 50 BID antiXa level on 07/04 0.36 Tubes/Lines/Drain - EVD - Left abdominal TOD - Ileal conduit - Left arm PICC - PIVs CODE status: Full Code DISPO: ok for floor transfer to NSY floor - NSY primary at this time given resolution of acute surgical needs minus EVD drain Follow Up: EGS Urology Neurosurgery Lam East DO Critical Care Provider Statement I saw and evaluated the patient. I personally obtained the gordon and critical portions of the historyand physical exam. I reviewed the resident's documentation and discussed the patient with the resident. I agree with the resident's medical decision making as documented in the resident's note. Critical care was necessary because of an illness or injury that acutely impaired one or more vitalorgans systems such that there was a high probability of imminent or life threatening deteriorationin the patient s condition. The following organ systems are involved: urologic, gi, neuro Critical care time was provided for 20 minutes by the attending physician. The time involved in theperformance of this care was exclusive of separately billable procedures, teaching time and treating other patients. This time was spent personally by the attending physician for the following activities: examination of patient, ordering and/or performing treatments, ordering and reviewing laboratory and radiographic studies, and if applicable, ventilatory management and blood gas interpretation. River Guzmán MD MPH ICU Attending * Arian Rizo MD - 07/06/2023 7:04 AM EDT Images from the original note were not included. [facility] NEUROSURGERY DAILY PROGRESS NOTE SUBJECTIVE: No acute events overnight. OBJECTIVE: Vital sign ranges over the past 24 hours (retrieved 07/06/2023 at 7:04 AM): Tmax (24 hours): 98.5 F (36.9 C) Pulse Av.4 Min: 74 Max: 90 Systolic (24hrs), Av , Min:124 , Max:163 Diastolic (24hrs), Av, Min:46, Max:68 MAP (mmHg) Av.1 mmHg Min: 68 mmHg Max: 92 mmHg Resp Av.9 Min: 13 Max: 26 SpO2 Av.3 % Min: 98 % Max: 100 % Intake/Output Summary (Last 24 hours) at 07/06/2023 0704 Last data filed at 07/06/2023 0700 Gross per 24 hour Intake 1186.5 ml Output 3470 ml Net -2283.5 ml Fingerstick Glucose Glucose 07/05/23 2057 247 07/05/23 2056 250 Comment: Notified RN YESI LOPEZ
07/05/23 1611 250 07/05/23 1610 249 07/05/23 1201 91 07/05/23 0800 95 LABS: CBC/PT/INR WBC RBC Hgb Hct MCV RDW Plt PT aPTT INR 07/06/23 0131 9.4 3.17 8.9 27.9 88 18.9 671 07/05/23 1101 8.2 3.08 8.8 26.9 87 19.1 560 07/05/23 0249 7.3 2.43 7.1 22.1 91 15.6 507 07/05/23 0206 7.3 2.43 7.0 22.1 91 15.6 487 07/04/23 0709 10.3 3.05 9.1 28.1 92 15.9 503 07/04/23 0516 -- Comment: Contaminated,please resubmit. This is a corrected result. Previous result on 07/04/2023 at 0538 EDT was 7.1 K/uL [C] -- Comment: Contaminated,please resubmit. This is a corrected result. Previous result on 07/04/2023 at 0538 EDT was 2.25 M/uL [C] -- Comment: Contaminated,please resubmit. This is a corrected result. Previous result on 07/04/2023 at 0538 EDT was 6.8 g/dL [C] -- Comment: Contaminated,please resubmit. This is a corrected result. Previous result on 07/04/2023 at 0538 EDT was 20.7 % [C] -- Comment: Contaminated,please resubmit. This is a corrected result. Previous result on 07/04/2023 at 0538 EDT was 92 fL [C] -- Comment: Contaminated,please resubmit. This is a corrected result. Previous result on 07/04/2023 at 0538 EDT was 15.5 % [C] -- Comment: Contaminated,please resubmit. This is a corrected result. Previous result on 07/04/2023 at 0538 EDT was 381 K/uL [C] [C] - Corrected Result WBC/Diff None Basic Metabolic Panel Na K Cl CO2 Gap Glu BUN Cr Ca Mg PO4 07/06/23 013 2.9 Comment: Note updated reference ranges. 07/06/23 0131 1.7 Comment: Note updated reference ranges. 07/06/23 013 141 4.3 108 26 11 141 10 0.49 8.4 07/05/23 0206 3.6 Comment: Note updated reference ranges. 07/05/23 0206 1.8 Comment: Note updated reference ranges. 07/05/23 0206 143 4.2 111 28 8 68 11 0.40 7.8 07/04/23 0516 141 3.8 115 23 7 115 10 0.39 7.0 07/04/23 0516 2.4 Comment: Note updated reference ranges. 07/04/23 0516 1.7 Comment: Note updated reference ranges. 07/03/23 1351 138 4.3 107 26 9 283 11 0.51 7.7 Hepatic/Biliary/Pancreas None Cardiac None Arterial Blood Gases None CSF Culture CSF culture 06/28/23 1508 No Growth Urine Culture Urine culture 06/25/23 1508 Positive Culture Report >100,000 CFU/ml Escherichia coli >100,000 CFU/ml Providencia rettgeri Pyogen Culture None Blood Culture None Exam Awake, alert Ox3 PERRL EOMI Face symmetric, tongue midline BU 5/5, no drift RLE 5/5 LLE with fracture/splint, wiggles toes Sensation intact to light touch Dressing at clavicle c/d/I Shunt patent A: 58 year old year old female PMH of T1DM cb/ DKA, urothelial carcinoma of the bladder s/p radical cystectomy and ileal conduit c/b SBO (Dec 2021), HTN, chronic sinusitis, asthma, persistent encephalopathy and hydrocephalus 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 NSGY consulted by ACS in setting of patient requiring surgical intervention for SBO and need for possible OR availability to externalize VPS. Valve setting increased to 8 (07/01): 07/01 EVD clamped. Shunt dialed from 7 --> 8 (factory off setting). 07/04 CTH post clamping 72 hours showing stable ventricular size P: -NSGY now primary, ok for RNF Q4 NC -[facility] Sunday morning, 07/08 AM Ordered -OR plan for 07/09 for explant of hardware of VPS - posted, consented -EVD remains clamped at level of clavicle Please maintain clamping at two places No need to transduce ICPs -Pain control -Cont home metoprolol XL 100mg daily Will cont to monitor for HTN -Diet: no restrictions per EGS NG tube orders with LIWS -Urology following for b/L stents Will consult today and review -Anemic Cont to monitor H&H Last transfused pRBC 07/04 for hgb of 7.1 -ID Cont posaconazole 300mg PO Will consult ID and delineate true duration -PT/OT Currently skilled for home Will require new evals after explant surgery -Will consult medicine today for co-management given multiple active issues -SCDs, on LVX, will transition to H Post-rounds addendum: - Will require lifelong posaconazole - No contraindication for shunt explantation per discussion with ID staff Please call anytime with questions or concerns. Arian Rizo MD Neurosurgery, Resident Pager: [phone] 07/06/2023 - 8:35 AM Please page the on-call pager after 6pm and on weekends + Isaías Hardin MD Neurological Surgery, PGY-2 Service Pager: [phone] 07/06/2023 - 7:06 AM * Elidia Berkowitz MD - 07/05/2023 4:54 PM EDT EGS Plan of Care Update Patient to be transferred to NSGY floor. No further EGS needs at this time. Will have patient follow up with Dr. Martinez the first or second week of July for post op follow up and staple removal. TOD drain to be managed by urology team. EGS will sign off at this time. Please call with any questions or concerns. Elidia Berkowitz MD * Liat Guzmán MD - 07/05/2023 10:48 AM EDT Images from the original note were not included. 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 Admitted to ICU for EVD monitoring. Hospital Course: 06/24-06/25: Admitted to EGS for SBO with initial nonop mgmt. 06/26: Taken to OR for EVD externalization, exlap and SBO with IC anastamosis and recon of urostomy. 06/27: Awaiting ROBF. 06/28: NGT removed with return of bowel function. 06/29-06/30: EVD with decreased outputs. 07/01: EVD clamping started. 319: Tolerating EVD clamping 07/04: CT scan in am stable - NSY planning on keeping EVD clamped until Sunday with possible removalt 24 Hour Events: NAEON, lower sugars this am, still having soft bms. Tolerating diet EVD clamp trial with stable head CT PHYSICAL EXAM Vital Signs: Vital sign ranges over the past 24 hours (retrieved 07/05/2023 at 10:48 AM): Tmax (24 hours): 98.8 F (37.1 C) Pulse Av.7 Min: 74 Max: 96 Systolic (24hrs), Av , Min:119 , Max:163 Diastolic (24hrs), Av, Min:46, Max:67 MAP (mmHg) Av.8 mmHg Min: 69 mmHg Max: 93 mmHg Resp Av.5 Min: 14 Max: 24 SpO2 Av.4 % Min: 98 % Max: 100 % 24 Hour Input/Output In: 834 (11.5 mL/kg) [P.O.:834] Out: 2825 (39.1 mL/kg) [Urine:2435 (1.4 mL/kg/hr); Drainage:390] Net: Weight: 72.3 kg Physical Exam: Constitutional: No distress. Neurological: No focal motor deficits. Cardiovascular: Regular rate and rhythm on tele. Pulmonary: Unlabored breathing on RA. Abdominal: Soft, non-distended, appropriately TTP, ileal conduit pink, TOD with serous output. Musculoskeletal: No edema. No change from 07/03 LABORATORY RESULTS (LAST 24 HOURS) CBC/PT/INR WBC RBC Hgb Hct MCV RDW Plt PT aPTT INR 07/05/23 0249 7.3 2.43 7.1 22.1 91 15.6 507 07/05/23 0206 7.3 2.43 7.0 22.1 91 15.6 487 07/04/23 0709 10.3 3.05 9.1 28.1 92 15.9 503 07/04/23 0516 -- Comment: Contaminated,please resubmit. This is a corrected result. Previous result on 07/04/2023 at [facility] EDT was 7.1 K/uL [C] -- Comment: Contaminated,please resubmit. This is a corrected result. Previous result on 07/04/2023 at [facility] EDT was 2.25 M/uL [C] -- Comment: Contaminated,please resubmit. This is a corrected result. Previous result on 07/04/2023 at [facility] EDT was 6.8 g/dL [C] -- Comment: Contaminated,please resubmit. This is a corrected result. Previous result on 07/04/2023 at [facility] EDT was 20.7 % [C] -- Comment: Contaminated,please resubmit. This is a corrected result. Previous result on 07/04/2023 at 05 EDT was 92 fL [C] -- Comment: Contaminated,please resubmit. This is a corrected result. Previous result on 07/04/2023 at [facility] EDT was 15.5 % [C] -- Comment: Contaminated,please resubmit. This is a corrected result. Previous result on 07/04/2023 at 05 EDT was 381 K/uL [C] 07/03/23 0153 10.1 2.52 7.5 22.8 91 14.6 347 [C] - Corrected Result Basic Metabolic Panel Na K Cl CO2 Gap Glu BUN Cr Ca Mg PO4 07/05/23205 3.6 Comment: Note updated reference ranges. 07/05/23205 1.8 Comment: Note updated reference ranges. 07/05/23205 143 4.2 111 28 8 68 11 0.40 7.8 07/04/23 0516 141 3.8 115 23 7 115 10 0.39 7.0 07/04/23 0516 2.4 Comment: Note updated reference ranges. 07/04/2316 1.7 Comment: Note updated reference ranges. 07/03/23 1351 138 4.3 107 26 9 283 11 0.51 7.7 07/03/23 0153 3.1 Comment: Note updated reference ranges. 07/03/23 0153 1.7 Comment: Note updated reference ranges. 07/03/23152 142 3.6 111 27 8 89 13 0.46 7.6 Arterial Blood Gases None IMAGING RESULTS (PERSONALLY REVIEWED) None today. 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), and bladder cancer s/p cystectomy and ileal conduit in 2021 who on presented on 06/24 with concern for closed loop small bowel obstruction s/p externalization of GE[employer]INE[employer]ING [employer]ER shunt, EVD, exploratory laparotomy, bilateral ureteroileal reimplant, uretroenterostomy, RONALD, bowel resection on 06/26 Diagnosis: - Small bowel obstruction with bowel ischemia - Iatrogenic injury to bilateral ureters with ureteral reimplantation - [employer]ER shunt contamination PMHx: - HTN - Type 1 DM (on Insulin pump) - Asthma - 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) - Bladder cancer s/p cystectomy and ileal conduit in 2021 Plan Neurologic - Analgesia: PRN Tylenol & Oxycodone - NSY following: EVD clamped until Sunday, possible OR removal Sunday per Y Posaconazole 300mg PO daily for antifungal ppx Respiratory - Respiratory [employer] Steam Protocol - Bronchopulmonary Hygiene - Incentive Spirometer - No acute resp concerns - PRN Albuterol for history of asthma Cardiovascular - Continue home Metoprolol XL 100mg daily - PRN Hydralazine and Labetalol for SBP > 160 GI - Continue regular diet - Bowel regimen - PRN Zofran Renal/ - Measure I&O - Daily BMP, Mg, Phos -> replace as needed (Maintain K >4, Phos >3, Mg >2) - Urology following: Maintain b/L stents Okay for TOD drain and stoma trujillo removal just prior to d/c Endo - Home insulin pump off (patient estimates total daily insulin at home at ~70units - Change Lantus 20 units BID due to lower sugars - Sliding scale insulin ACHS Heme - one unit of blood this am, post transfusion CBC pending - Daily CBC ID - Zosyn for 4 days post-op (ended 06/30) - Patient on meningitis prophylaxis outpatient with Posaconazole 300 mg PO MSK - Progressive mobility protocol - PT/OT -> Ok for home when medically cleared Prophylaxis: VTE - SCDs, Lovenox 50 BID antiXa level on 06/30 0.38 - repeat antixa level today Tubes/Lines/Drain - EVD - Left abdominal TOD - Ileal conduit - Left arm PICC - PIVs CODE status: Full Code DISPO: ICU given need for EVD Follow Up: EGS Urology Neurosurgery Lam East DO Critical Care Provider Statement I saw and evaluated the patient. I personally obtained the gordon and critical portions of the historyand physical exam. I reviewed the resident's documentation and discussed the patient with the resident. I agree with the resident's medical decision making as documented in the resident's note. Critical care was necessary because of an illness or injury that acutely impaired one or more vitalorgans systems such that there was a high probability of imminent or life threatening deteriorationin the patient s condition. The following organ systems are involved: neuro, urologic, gi Critical care time was provided for 20 minutes by the attending physician. The time involved in theperformance of this care was exclusive of separately billable procedures, teaching time and treating other patients. This time was spent personally by the attending physician for the following activities: examination of patient, ordering and/or performing treatments, ordering and reviewing laboratory and radiographic studies, and if applicable, ventilatory management and blood gas interpretation. River Guzmán MD MPH ICU Attending * Zarina Harrison PA-C - 07/05/2023 9:58 AM EDT Images from the original note were not included. [facility] SURGERY GENERAL INFORMATION EMERGENCY GENERAL SURGERY NOTE Patient Name: Chikis Tobar Admission Date: 06/25/2023 Patient seen and examined on 07/05/2023 INTERVAL HISTORY/EVENTS Background Narrative: Chikis Tobar is a 58 year old female with PMH of HTN, DM, Asthma, fungal meningitis and Bladdercancer s/p Cystectomy and ileal conduit in 2020. She is now presenting with small bowel obstruction. Patient had elevated lactate on presentation in the setting of minimal abdominal tenderness, appropriately downtrending after fluid resuscitation. Plan to Admit to EGS service on RNF. Hospital Course/Procedures: 06/24: admitted to EGS with concern for SBO possible closed loop 06/25: worsening abdominal pain. NGT placed. 06/26: leukocytosis. 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 Admittedto SICU post-operatively for EVD, neuro checks. 06/27: Improved symptomatically, no acute events 06/28: Passed gas. NGT removed. Started on clears. 06/29: Tolerated regular diet 06/30: JAIRO, minimal EVD output 07/01: JAIRO, EVD titrating 07/02: JAIRO 07/03: bowels functioning, EVDS clamped Events in last 24 hours: CT Head overnight with mild ventriculomegaly and stable [employer]INE[employer]ING TE[employer]ER shunt 1 unit pRBC this morning for hgb 7.0. Feels good this morning after sleeping some Having bowel movements, +flatus Tolerating diet without issue PHYSICAL EXAM Vitals: Vital sign ranges over the past 24 hours (retrieved 07/05/2023 at 10:01 AM): Tmax (24 hours): 98.8 F (37.1 C) Pulse Av.7 Min: 74 Max: 96 Systolic (24hrs), Av , Min:119 , Max:163 Diastolic (24hrs), Av, Min:46, Max:67 MAP (mmHg) Av.6 mmHg Min: 69 mmHg Max: 93 mmHg Resp Av.5 Min: 14 Max: 24 SpO2 Av.5 % Min: 98 % Max: 100 % 24 Hour Input/Output In: 834 (11.5 mL/kg) [P.O.:834] Out: 2825 (39.1 mL/kg) [Urine:2435 (1.4 mL/kg/hr); Drainage:390] Net: Weight: 72.3 kg Physical Exam: General: Reclined in bed, in NAD HEENT: normocephalic, GEOLOG[employer] ENGINEERING TE[employer]ER shunt catheter externalized at level of clavicle, clamped CV: Regular rate on monitor Pulm: Breathing comfortably on room air, symmetric chest rise Abdomen: Soft, minimally tender near incision, midline incision well approximated with lorna in place, TOD drain in RLQ with light yellow output, urostomy in LLQ with light yellow output MSK: FRANCHESKA independently NEURO: Clear speech, no focal deficits LABORATORY RESULTS (LAST 24 HOURS) CBC/PT/INR WBC RBC Hgb Hct MCV RDW Plt PT aPTT INR 07/05/23 0249 7.3 2.43 7.1 22.1 91 15.6 507 07/05/23 0206 7.3 2.43 7.0 22.1 91 15.6 487 Basic Metabolic Panel Na K Cl CO2 Gap Glu BUN Cr Ca Mg PO4 07/05/23 0206 3.6 Comment: Note updated reference ranges. 07/05/23 0206 1.8 Comment: Note updated reference ranges. 07/05/236 143 4.2 111 28 8 68 11 0.40 7.8 Arterial Blood Gases None IMAGING RESULTS - Last 24 hours (PERSONALLY REVIEWED) CT Head 07/04: FINDINGS: No mass or acute hemorrhage. No evidence of acute infarct. Mild ventriculomegaly is stable. There is a GEOLOGICAL ENGINEERING TEACHER shunt catheter from the right frontal approach with its tip in the right lateral ventricle. No significant interval change. The skull, paranasal sinuses and tympanomastoid cavities are normal. IMPRESSION: Mild ventriculomegaly and GEOLOG[employer] ENGINEERING TEACHER shunt are stable. DIAGNOSIS & PLAN Diagnoses: Bowel ischemia 2/2 small bowel closed loop obstruction s/p ex-lap, ileocecectomy, primary ileocolicanastomosis Bilateral ureteral transection to detorse bowel s/p ureteral reimplantation (urology) GEOLOGICAL ENGINEERING TEACHER shunt externalization (NSGY) Lactic acidosis (resolved) Assessment: 58F with hx bladder cancer s/p cystectomy and ileal conduit in 2020 ([facility]) admitted for si/sx concerning for small bowel obstruction, possibly secondary to closed loop. Lactic acidosis normalized however patient's gastric and bowel distention growing. NGT placed with some reliefon 06/25. Worsening leukocytosis 06/26, to OR for ex-lap, found to have necrotic bowel now s/p ileocecectomy, primary ileocolic anastomosis and unavoidable bilateral ureteral transection at insertion into neobladder/conduit in the process of detorsing bowel s/p ureteral reimplantation by urology. 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 Patient remains in SICU for EVD manag ement, remains stable, now with return of bowel function. Tolerating diet, good pain control. Plan - GEOLOG[employer] ENGINEERING TEACHER shunt and EVD management per neurosurgery. Recs to keep EVD clamped, monitoring over weekend, possible EVD removal early next week - Appreciate urology recs: maintain TOD drain, monitor urostomy outputs. - Regular diet - No activity restrictions - Completed 4d broad spectrum abx for necrotic bowel on 06/30, no need for ongoing abx from EGS perspective - Remainder per SICU - Appreciate SICU care Plan of care discussed with attending Surgeon, Dr. Stovall. Zarina Harrison PA-C Emergency General Surgery Please page: EGS ED/Consult Pager [phone] for new patients EGS Floor pager [phone] for established patients Associated attestation - Kyrie Stovall MD - 07/05/2023 2:18 PM EDT Images from the original note were not included. Teaching Physician Note: I saw and evaluated the patient. I personally obtained the gordon and critical portions of the historyand physical exam. I reviewed the resident's/STEVE's documentation and discussed the patient with theresident/STEVE. I agree with the medical decision making as documented in the resident's/STEVE's note, with the following addenda/exceptions: JAIRO Regular diet, tolerating well No surgical restrictions Recommend transfer to NSGY primary for management of EVD as there are no further acute general surgical issues remaining pertaining to her surgery - will discuss w/ NSGY team. Split/Shared Documentation I approve the management plan for this patient and take responsibility for the plan as documented. Independent Interpretation of Tests Performed by Another Physician/STEVE: I personally performed, reviewed, and interpreted labs, vitals, exam with findings of see above. Decisionmaking is mine. Kyrie Stovall MD Division of Trauma, Critical Care, Nieves, and Emergency General Surgery Department of Surgery [facility] [phone] * Isaías Hardin MD - 07/05/2023 6:41 AM EDT Images from the original note were not included. [facility] NEUROSURGERY DAILY PROGRESS NOTE SUBJECTIVE: Received 1u PRBC overnight for Hgb 7.0. [facility] obtained this am to assess ventricular size- stable. OBJECTIVE: Vitals: Vital sign ranges over the past 24 hours (retrieved 07/05/2023 at 6:41 AM): Tmax (24 hours): 98.8 F (37.1 C) Pulse Av.5 Min: 74 Max: 96 Systolic (24hrs), Av , Min:119 , Max:172 Diastolic (24hrs), Av, Min:46, Max:69 MAP (mmHg) Av.1 mmHg Min: 69 mmHg Max: 93 mmHg Resp Av.5 Min: 14 Max: 24 SpO2 Av.5 % Min: 98 % Max: 100 % In: 1434 (19.8 mL/kg) [P.O.:1434] Out: 2790 (38.6 mL/kg) [Urine:2430 (1.4 mL/kg/hr); Drainage:360] Net: -1356 Weight: 72.3 kg Medications: magnesium sulfate 2,000 mg One Time Dose calcium gluconate in NS 2,000 mg One Time Dose methocarbamol 500 mg Every 8 hours insulin glargine 25 Units BID senna 8.6 mg At Bedtime metoprolol 100 mg Daily enoxaparin 50 mg 2x Daily hydrophilic wound dressing 2x Daily Posaconazole 300 mg Daily insulin lispro 3-18 Units 4x Daily PC & HS acetaminophen 650 mg Q6H PRN oxyCODONE 5 mg Q6H PRN ondansetron 4 mg Q6H PRN albuterol 2.5 mg Q6H PRN labetalol 20 mg Q6H PRN hydrALAZINE 10 mg Q6H PRN dextrose iv for hypoglycemia orderable 125 mL PRN Or glucagon 1 mg PRN Or dextrose 15 g of glucose PRN Or dextrose 30 g of glucose PRN Labs: CBC/PT/INR WBC RBC Hgb Hct MCV RDW Plt PT aPTT INR 07/05/23 0249 7.3 2.43 7.1 22.1 91 15.6 507 07/05/23 0206 7.3 2.43 7.0 22.1 91 15.6 487 07/04/23 0709 10.3 3.05 9.1 28.1 92 15.9 503 07/04/23 0516 -- Comment: Contaminated,please resubmit. This is a corrected result. Previous result on 07/04/2023 at 05 EDT was 7.1 K/uL [C] -- Comment: Contaminated,please resubmit. This is a corrected result. Previous result on 07/04/2023 at 05 EDT was 2.25 M/uL [C] -- Comment: Contaminated,please resubmit. This is a corrected result. [facility] [facility] EDT was 6.8 g/dL [C] -- Comment: Contaminated,please resubmit. This is a corrected result. Previous result on 07/04/2023 at [facility] EDT was 20.7 % [C] -- Comment: Contaminated,please resubmit. This is a corrected result. Previous result on 07/04/2023 at [facility] EDT was 92 fL [C] -- Comment: Contaminated,please resubmit. This is a corrected result. Previous result on 07/04/2023 at 38 EDT was 15.5 % [C] -- Comment: Contaminated,please resubmit. This is a corrected result. Previous result on 07/04/2023 at [facility] EDT was 381 K/uL [C] 07/03/23 0153 10.1 2.52 7.5 22.8 91 14.6 347 [C] - Corrected Result WBC/Diff None Basic Metabolic Panel Na K Cl CO2 Gap Glu BUN Cr Ca Mg PO4 07/05/23205 3.6 Comment: Note updated reference ranges. 07/05/23205 1.8 Comment: Note updated reference ranges. 07/05/23205 143 4.2 111 28 8 68 11 0.40 7.8 07/04/2316 141 3.8 115 23 7 115 10 0.39 7.0 07/04/23515 2.4 Comment: Note updated reference ranges. 07/04/23 0516 1.7 Comment: Note updated reference ranges. 07/03/23 1351 138 4.3 107 26 9 283 11 0.51 7.7 07/03/23 0153 3.1 Comment: Note updated reference ranges. 07/03/23 0153 1.7 Comment: Note updated reference ranges. 07/03/23 0153 142 3.6 111 27 8 89 13 0.46 7.6 Hepatic/Biliary/Pancreas None Cardiac None Arterial Blood Gases None Fingerstick Glucose Glucose 07/05/23 0536 103 07/05/23 0440 71 07/04/23 2127 129 07/04/23 1740 308 07/04/23 0802 175 CSF Culture CSF culture 06/28/23 1508 No Growth Urine Culture Urine culture 06/25/23 1508 Positive Culture Report >100,000 CFU/ml Escherichia coli >100,000 CFU/ml Providencia rettgeri Pyogen Culture None Blood Culture None Sputum Culture None Physical Exam: Awake, alert Ox3 PERRL EOMI Face symmetric, tongue midline BU 5/5, no drift RLE 5/5 LLE with fracture/splint, wiggles toes Sensation intact to light touch Dressing at clavicle c/d/I Shunt patent A: Pt is a 58 year old year old female PMH of T1DM cb/ DKA, urothelial carcinoma of the bladder s/pradical cystectomy and ileal conduit c/b SBO (Dec 2021), HTN, chronic sinusitis, asthma, persistent encephalopathy and hydrocephalus 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 NSGY consulted by ACS in setting of patient requiring surgical intervention for SBO and need for possibleOR availability to externalize VPS. Valve setting increased to 8 (07/01): 07/01 EVD clamped. Shunt dialed from 7 --> 8 (factory off setting). 07/04 CTH post clamping 72 hours showing stable ventricular size P: -SICU under EGS -Keep EVD clamped at level of the clavicle. -rCTH stable - will monitor clinically over weekend and discuss removal of shunt system early next week -no need to tranduce ICP's -abx per general surgery -appreciate ID consult - please comment on fungal meningitis as approaching end of antifungal duration -PT/OT -CSF studies unremarkable. Culture NGTD. -NSGY to follow Isaías Hardin MD Neurological Surgery, PGY-2 Service Pager: [phone] 07/05/2023 - 6:42 AM * Keri Goodwin RN - 07/05/2023 2:06 AM EDT /LADARIUS Bauman notified of critical Hemoglobin value of 7.0. /LADARIUS Bauman read back critical results. New orders received. * Eva Mcgarry MD - 07/04/2023 5:54 PM EDT Images from the original note were not included. [facility] DIVISION OF ACUTE CARE SURGERY GENERAL INFORMATION EMERGENCY GENERAL SURGERY NOTE Patient Name: Chikis Tobar Admission Date: 06/25/2023 Patient seen and examined on 07/04/2023 INTERVAL HISTORY/EVENTS Background Narrative: Chikis Tobar is a 58 year old female with PMH of HTN, DM, Asthma, fungal meningitis and Bladdercancer s/p Cystectomy and ileal conduit in 2020. She is now presenting with small bowel obstruction. Patient had elevated lactate on presentation in the setting of minimal abdominal tenderness, appropriately downtrending after fluid resuscitation. Plan to Admit to EGS service on RNF. Hospital Course/Procedures: 06/24: admitted to EGS with concern for SBO possible closed loop 06/25: worsening abdominal pain. NGT placed. 06/26: leukocytosis. 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 Admittedto SICU post-operatively for EVD, neuro checks. 06/27: Improved symptomatically, no acute events 06/28: Passed gas. NGT removed. Started on clears. 06/29: Tolerated regular diet 06/30: JAIRO, minimal EVD output 07/01: JAIRO, EVD clamped 07/02: JAIRO Events in last 24 hours: No acute events overnight Reported mild increase in fatigue, occasional crampy abdominal pain, large BM. Overall feels good. Denied increased headache or dizziness TOD drain 320 (360) EVDS clamped PHYSICAL EXAM Vitals: Vital sign ranges over the past 24 hours (retrieved 07/04/2023 at 5:54 PM): Tmax (24 hours): 98.8 F (37.1 C) Pulse Av.6 Min: 80 Max: 94 Systolic (24hrs), Av , Min:118 , Max:172 Diastolic (24hrs), Av, Min:47, Max:87 MAP (mmHg) Av.7 mmHg Min: 67 mmHg Max: 105 mmHg Resp Av.5 Min: 14 Max: 24 SpO2 Av.4 % Min: 98 % Max: 100 % 24 Hour Input/Output In: 1138 (15.7 mL/kg) [P.O.:1138] Out: 2755 (38.1 mL/kg) [Urine:2360 (1.4 mL/kg/hr); Drainage:395] Net: -2320 Weight: 72.3 kg Physical Exam: General: resting comfortably in chair, NAD HEENT: normocephalic, [employer] shunt catheter externalized at level of clavicle, clamped CV: Not tachycardic, NSR on monitor Pulm: satting well on RA, chest rise symmetric, no increased WOB Abdomen: Soft, distended, appropriately tender near midline and drain insertion site, midline well approximated with lorna in place, no active drainage, no erythema, LLQ TOD with serous output, urostomy in RLQ with yellow urine output MSK: no peripheral edema, moving all 4 extremities purposefully NEURO: Clear speech, no focal deficits LABORATORY RESULTS (LAST 24 HOURS) CBC/PT/INR WBC RBC Hgb Hct MCV RDW Plt PT aPTT INR 07/04/23 0709 10.3 3.05 9.1 28.1 92 15.9 503 07/04/23 0516 -- Comment: Contaminated,please resubmit. This is a corrected result. Previous result on 07/04/2023 at [facility] EDT was 7.1 K/uL [C] -- Comment: Contaminated,please resubmit. This is a corrected result. Previous result on 07/04/2023 at [facility] EDT was 2.25 M/uL [C] -- Comment: Contaminated,please resubmit. This is a corrected result. Previous result on 07/04/2023 at [facility] EDT was 6.8 g/dL [C] -- Comment: Contaminated,please resubmit. This is a corrected result. Previous result on 07/04/2023 at [facility] EDT was 20.7 % [C] -- Comment: Contaminated,please resubmit. This is a corrected result. Previous result on 07/04/2023 at [facility] EDT was 92 fL [C] -- Comment: Contaminated,please resubmit. This is a corrected result. Previous result on 07/04/2023 at [facility] EDT was 15.5 % [C] -- Comment: Contaminated,please resubmit. This is a corrected result. Previous result on 07/04/2023 at 0538 EDT was 381 K/uL [C] [C] - Corrected Result Basic Metabolic Panel Na K Cl CO2 Gap Glu BUN Cr Ca Mg PO4 07/04/23 0516 141 3.8 115 23 7 115 10 0.39 7.0 07/04/23 0516 2.4 Comment: Note updated reference ranges. 07/04/23 0516 1.7 Comment: Note updated reference ranges. Arterial Blood Gases None IMAGING RESULTS - Last 24 hours (PERSONALLY REVIEWED) No new imaging this morning DIAGNOSIS & PLAN Diagnoses: Bowel ischemia 2/ small bowel closed loop obstruction s/p ex-lap, ileocecectomy, primary ileocolicanastomosis Bilateral ureteral transection to detorse bowel s/p ureteral reimplantation (urology) [employer]ER shunt externalization (NSGY) Lactic acidosis (resolved) Assessment: 58F with hx bladder cancer s/p cystectomy and ileal conduit in 2020 ([facility]) now presenting with si/sx concerning for small bowel obstruction, possibly secondary to closed loop. Lactic acidosis normalized however patient's gastric and bowel distention growing. NGT placed with somerelief on 06/25. Worsening leukocytosis 06/26, to OR for ex-lap, found to have necrotic bowel now s/pileocecectomy, primary ileocolic anastomosis and unavoidable bilateral ureteral transection at insertion into neobladder/conduit in the process of detorsing bowel s/p ureteral reimplantation by urology. 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 Patient remains in SICU for EVD management, remains stable, now with return of bowel function. Tolerating diet, good pain control. Plan - [employer]ER shunt and EVD management per neurosurgery. Awaiting final CSF culture results. Undergoing clamp trial. [facility] tomorrow AM - Appreciate urology recs: maintain TOD drain, monitor urostomy outputs. - Regular diet - No activity restrictions - Completed 4d broad spectrum abx for necrotic bowel on 06/30, no need for ongoing abx from EGS perspective - Remainder per SICU - Appreciate SICU care Plan of care discussed with attending Surgeon, Dr. Stovall. Eva Mcgarry MD Emergency General Surgery Please page: EGS ED/Consult Pager [phone] for new patients EGS Floor pager [phone] for established patients Associated attestation - Kyrie Stovall MD - 07/05/2023 2:14 PM EDT Images from the original note were not included. Teaching Physician Note: I saw and evaluated the patient. I personally obtained the gordon and critical portions of the historyand physical exam. I reviewed the resident's/STEVE's documentation and discussed the patient with theresident/STEVE. I agree with the medical decision making as documented in the resident's/STEVE's note, with the following addenda/exceptions: JAIRO EVD Clamp trial ongoing, CT planned 07/04 Continue diet Remainder of mgmt per NSGY Kyrie Stovall MD Division of Trauma, Critical Care, Nieves, and Emergency General Surgery Department of Surgery [facility] [phone] * Liat Guzmán MD - 07/04/2023 10:13 AM EDT Images from the original note were not included. 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 Admitted to ICU for EVD monitoring. Hospital Course: 06/24-06/25: Admitted to EGS for SBO with initial nonop mgmt. 06/26: Taken to OR for EVD externalization, exlap and SBO with IC anastamosis and recon of urostomy. 06/27: Awaiting ROBF. 06/28: NGT removed with return of bowel function. 06/29-06/30: EVD with decreased outputs. 07/01: EVD clamping started. 319: Tolerating EVD clamping. 24 Hour Events: NAEON, pain well-controlled, tolerating a diet, having bowel function. Tolerating EVD clamp trial. PHYSICAL EXAM Vital Signs: Vital sign ranges over the past 24 hours (retrieved 07/04/2023 at 10:13 AM): Tmax (24 hours): 98.7 F (37.1 C) Pulse Av Min: 80 Max: 101 Systolic (24hrs), Av , Min:118 , Max:172 Diastolic (24hrs), Av, Min:46, Max:87 MAP (mmHg) Av mmHg Min: 67 mmHg Max: 105 mmHg Resp Av.2 Min: 14 Max: 20 SpO2 Av.7 % Min: 83 % Max: 100 % 24 Hour Input/Output In: 1500 (20.7 mL/kg) [P.O.:1450; I.V.:50 (0 mL/kg/hr)] Out: 2270 (31.4 mL/kg) [Urine:1910 (1.1 mL/kg/hr); Drainage:360] Net: -770 Weight: 72.3 kg Physical Exam: Constitutional: No distress. Neurological: No focal motor deficits. Cardiovascular: Regular rate and rhythm on tele. Pulmonary: Unlabored breathing on RA. Abdominal: Soft, non-distended, appropriately TTP, ileal conduit pink, TOD with serous output. Musculoskeletal: No edema. LABORATORY RESULTS (LAST 24 HOURS) CBC/PT/INR WBC RBC Hgb Hct MCV RDW Plt PT aPTT INR 07/04/23 0709 10.3 3.05 9.1 28.1 92 15.9 503 07/04/23 0516 -- Comment: Contaminated,please resubmit. This is a corrected result. Previous result on 07/04/2023 at [facility] EDT was 7.1 K/uL [C] -- Comment: Contaminated,please resubmit. This is a corrected result. Previous result on 07/04/2023 at [facility] EDT was 2.25 M/uL [C] -- Comment: Contaminated,please resubmit. This is a corrected result. Previous result on 07/04/2023 at [facility] EDT was 6.8 g/dL [C] -- Comment: Contaminated,please resubmit. This is a corrected result. Previous result on 07/04/2023 at [facility] EDT was 20.7 % [C] -- Comment: Contaminated,please resubmit. This is a corrected result. Previous result on 07/04/2023 at [facility] EDT was 92 fL [C] -- Comment: Contaminated,please resubmit. This is a corrected result. Previous result on 07/04/2023 at [facility] EDT was 15.5 % [C] -- Comment: Contaminated,please resubmit. This is a corrected result. Previous result on 07/04/2023 at [facility] EDT was 381 K/uL [C] 07/03/23 0153 10.1 2.52 7.5 22.8 91 14.6 347 07/02/23 0302 11.1 2.82 7.9 25.2 89 15.3 304 [C] - Corrected Result Basic Metabolic Panel Na K Cl CO2 Gap Glu BUN Cr Ca Mg PO4 07/04/23 0516 141 3.8 115 23 7 115 10 0.39 7.0 07/04/23 0516 2.4 Comment: Note updated reference ranges. 07/04/23 0516 1.7 Comment: Note updated reference ranges. 07/03/23 1351 138 4.3 107 26 9 283 11 0.51 7.7 07/03/23 0153 3.1 Comment: Note updated reference ranges. 07/03/23 0153 1.7 Comment: Note updated reference ranges. 07/03/23 015 142 3.6 111 27 8 89 13 0.46 7.6 07/02/23 0302 3.6 Comment: Note updated reference ranges. 07/02/23301 1.8 Comment: Note updated reference ranges. 07/02/23301 144 3.7 109 29 10 97 15 0.49 8.0 07/01/23 1328 143 3.5 104 28 15 158 14 0.45 8.0 Arterial Blood Gases None IMAGING RESULTS (PERSONALLY REVIEWED) None today. 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), and bladder cancer s/p cystectomy and ileal conduit in 2021 who on presented on 06/24 with concern for closed loop small bowel obstruction s/p externalization of GE[employer]ERING TE[employer]ER shunt, EVD, exploratory laparotomy, bilateral ureteroileal reimplant, uretroenterostomy, RONALD, bowel resection on 06/26 Diagnosis: - Small bowel obstruction with bowel ischemia - Iatrogenic injury to bilateral ureters with ureteral reimplantation - [employer] shunt contamination PMHx: - HTN - Type 1 DM (on Insulin pump) - Asthma - 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) - Bladder cancer s/p cystectomy and ileal conduit in 2021 Plan Neurologic - Analgesia: PRN Tylenol & Oxycodone - NSY following: Keep EVD clamped for 72hours and then obtain a CT Head wo contrast on 07/04 Posaconazole 300mg PO daily for antifungal ppx Respiratory - Respiratory [employer] Steam Protocol - Bronchopulmonary Hygiene - Incentive Spirometer - No acute resp concerns - PRN Albuterol for history of asthma Cardiovascular - Continue home Metoprolol XL 100mg daily - PRN Hydralazine and Labetalol for SBP > 160 GI - Continue regular diet - Bowel regimen - PRN Zofran Renal/ - Measure I&O - Daily BMP, Mg, Phos -> replace as needed (Maintain K >4, Phos >3, Mg >2) - Urology following: Maintain b/L stents Okay for TOD drain and stoma trujillo removal just prior to d/c Endo - Home insulin pump off (patient estimates total daily insulin at home at ~70units - Continue Lantus 25 units BID - Sliding scale insulin ACHS Heme - No indication for transfusion at this time - Daily CBC ID - Zosyn for 4 days post-op (ended 06/30) - Patient on meningitis prophylaxis outpatient with Posaconazole 300 mg PO MSK - Progressive mobility protocol - PT/OT -> Ok for home when medically cleared Prophylaxis: VTE - SCDs, Lovenox 50 BID antiXa level on 06/30 0.38 Tubes/Lines/Drain - EVD - Left abdominal TOD - Ileal conduit - Left arm PICC - PIVs CODE status: Full Code DISPO: ICU given need for EVD Follow Up: EGS Urology Neurosurgery Nan Iverson MD Critical Care Provider Statement I saw and evaluated the patient. I personally obtained the gordon and critical portions of the historyand physical exam. I reviewed the resident's documentation and discussed the patient with the resident. I agree with the resident's medical decision making as documented in the resident's note. Critical care was necessary because of an illness or injury that acutely impaired one or more vitalorgans systems such that there was a high probability of imminent or life threatening deteriorationin the patient s condition. The following organ systems are involved: neuro, GI, immune Critical care time was provided for 20 minutes by the attending physician. The time involved in theperformance of this care was exclusive of separately billable procedures, teaching time and treating other patients. This time was spent personally by the attending physician for the following activities: examination of patient, ordering and/or performing treatments, ordering and reviewing laboratory and radiographic studies, and if applicable, ventilatory management and blood gas interpretation. River Guzmán MD MPH ICU Attending * Isaías Hardin MD - 07/04/2023 6:34 AM EDT Images from the original note were not included. [facility] NEUROSURGERY DAILY PROGRESS NOTE SUBJECTIVE: No overnight events OBJECTIVE: Vitals: Vital sign ranges over the past 24 hours (retrieved 07/04/2023 at 6:34 AM): Tmax (24 hours): 98.7 F (37.1 C) Pulse Av.3 Min: 79 Max: 101 Systolic (24hrs), Av , Min:118 , Max:163 Diastolic (24hrs), Av, Min:46, Max:87 MAP (mmHg) Av.9 mmHg Min: 67 mmHg Max: 105 mmHg Resp Av.1 Min: 12 Max: 20 SpO2 Av.7 % Min: 83 % Max: 100 % In: 1170 (16.2 mL/kg) [P.O.:1070; I.V.:100 (0.1 mL/kg/hr)] Out: 2290 (31.7 mL/kg) [Urine:1920 (1.1 mL/kg/hr); Drainage:370] Net: -1120 Weight: 72.3 kg Medications: potassium & sodium phosphates 1 Tablet 4x Daily PC & HS magnesium sulfate 4,000 mg One Time Dose methocarbamol 500 mg Every 8 hours insulin glargine 25 Units BID senna 8.6 mg At Bedtime metoprolol 100 mg Daily enoxaparin 50 mg 2x Daily hydrophilic wound dressing 2x Daily Posaconazole 300 mg Daily insulin lispro 3-18 Units 4x Daily PC & HS acetaminophen 650 mg Q6H PRN oxyCODONE 5 mg Q6H PRN ondansetron 4 mg Q6H PRN albuterol 2.5 mg Q6H PRN labetalol 20 mg Q6H PRN hydrALAZINE 10 mg Q6H PRN dextrose iv for hypoglycemia orderable 125 mL PRN Or glucagon 1 mg PRN Or dextrose 15 g of glucose PRN Or dextrose 30 g of glucose PRN Labs: CBC/PT/INR WBC RBC Hgb Hct MCV RDW Plt PT aPTT INR 07/04/23 0516 7.1 2.25 6.8 20.7 92 15.5 381 07/03/23 0153 10.1 2.52 7.5 22.8 91 14.6 347 07/02/23 0302 11.1 2.82 7.9 25.2 89 15.3 304 WBC/Diff None Basic Metabolic Panel Na K Cl CO2 Gap Glu BUN Cr Ca Mg PO4 07/04/23 0516 141 3.8 115 23 7 115 10 0.39 7.0 07/04/23 0516 2.4 Comment: Note updated reference ranges. 07/04/23 0516 1.7 Comment: Note updated reference ranges. 07/03/23 1351 138 4.3 107 26 9 283 11 0.51 7.7 07/03/23 0153 3.1 Comment: Note updated reference ranges. 07/03/23 0153 1.7 Comment: Note updated reference ranges. 07/03/23 0153 142 3.6 111 27 8 89 13 0.46 7.6 07/02/23 0302 3.6 Comment: Note updated reference ranges. 07/02/23 0302 1.8 Comment: Note updated reference ranges. 07/02/23 0302 144 3.7 109 29 10 97 15 0.49 8.0 07/01/23 1328 143 3.5 104 28 15 158 14 0.45 8.0 Hepatic/Biliary/Pancreas None Cardiac None Arterial Blood Gases None Fingerstick Glucose (Last 10 results in the past 24 hours) Glucose 07/04/23 0009 155 07/03/23 2134 133 07/03/23 2133 133 07/03/23 1832 81 07/03/23 1830 91 07/03/23 1316 301 07/03/23 1308 203 07/03/23 1305 409 07/03/23 0904 119 07/03/23 0748 65 CSF Culture CSF culture 03/14/24 1508 No Growth Urine Culture Urine culture 06/25/23 1508 Positive Culture Report >100,000 CFU/ml Escherichia coli >100,000 CFU/ml Providencia rettgeri Pyogen Culture None Blood Culture None Sputum Culture None Physical Exam: Awake, alert Ox3 PERRL EOMI Face symmetric, tongue midline BU 5/5, no drift RLE 5/5 LLE with fracture/splint, wiggles toes Sensation intact to light touch Dressing at clavicle c/d/I Shunt patent A: Pt is a 58 year old year old female PMH of T1DM cb/ DKA, urothelial carcinoma of the bladder s/pradical cystectomy and ileal conduit c/b SBO (Dec 2021), HTN, chronic sinusitis, asthma, persistent encephalopathy and hydrocephalus 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 NSGY consulted by ACS in setting of patient requiring surgical intervention for SBO and need for possibleOR availability to externalize VPS. Valve setting increased to 8 (07/01): P: -SICU under EGS -Keep EVD clamped at level of the clavicle. -please obtain CT Head wo contrast tomorrow 07/04 5AM -no need to tranduce ICP's -abx per general surgery -appreciate ID consult - please comment on fungal meningitis as approaching end of antifungal duration -PT/OT -CSF studies unremarkable. Culture NGTD. -NSGY to follow Isaías Hardin MD Neurological Surgery, PGY-2 Service Pager: [phone] 07/04/2023 - 6:34 AM * Katiana Ross RN - 07/04/2023 5:40 AM EDT LADARIUS Ambriz notified of critical Hemoglobin value of 6.8. LADARIUS Ambriz read back critical results. New orders received. Redraw CBC * Kimberly Traylor RN - 07/03/2023 1:10 PM EDT notified pt POCT glucose on one right hand is 409 and 203 on left hand; BMP sent. * Elidia Berkowitz MD - 07/03/2023 12:07 PM EDT Images from the original note were not included. [facility] OF ACUTE CARE SURGERY GENERAL INFORMATION EMERGENCY GENERAL SURGERY NOTE Patient Name: Chikis Tobar Admission Date: 06/25/2023 Patient seen and examined on 07/03/2023 INTERVAL HISTORY/EVENTS Background Narrative: Chikis Tobar is a 58 year old female with PMH of HTN, DM, Asthma, fungal meningitis and Bladdercancer s/p Cystectomy and ileal conduit in 2020. She is now presenting with small bowel obstruction. Patient had elevated lactate on presentation in the setting of minimal abdominal tenderness, appropriately downtrending after fluid resuscitation. Plan to Admit to EGS service on . Hospital Course/Procedures: 06/24: admitted to EGS with concern for SBO possible closed loop 06/25: worsening abdominal pain. NGT placed. 06/26: leukocytosis. 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 Admittedto SICU post-operatively for EVD, neuro checks. 06/27: Improved symptomatically, no acute events 06/28: Passed gas. NGT removed. Started on clears. 06/29: Tolerated regular diet 06/30: JAIRO, minimal EVD output Events in last 24 hours: No acute events overnight +BM TOD drain 360 (260) EVDS clamped (40) PHYSICAL EXAM Vitals: Vital sign ranges over the past 24 hours (retrieved 07/03/2023 at 12:08 PM): Tmax (24 hours): 98.2 F (36.8 C) Pulse Av.1 Min: 78 Max: 102 Systolic (24hrs), Av , Min:117 , Max:159 Diastolic (24hrs), Av, Min:49, Max:119 MAP (mmHg) Av.5 mmHg Min: 69 mmHg Max: 127 mmHg Resp Av Min: 12 Max: 23 SpO2 Av.6 % Min: 98 % Max: 100 % 24 Hour Input/Output In: 1240 (17.2 mL/kg) [P.O.:1190; I.V.:50 (0 mL/kg/hr)] Out: 2564 (35.5 mL/kg) [Urine:2204 (1.3 mL/kg/hr); Drainage:360] Net: -1324 Weight: 72.3 kg Physical Exam: General: resting comfortably in bed, NAD HEENT: normocephalic, 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 catheter externalized at level of clavicle, clamped CV: Not tachycardic, NSR on monitor Pulm: satting well on RA, chest rise symmetric, no increased WOB Abdomen: Soft, ND, appropriately tender near midline and drain insertion site, midline well approximated with lorna in place, no active drainage, no erythema, LLQ TOD with serous output, urostomy inRLQ with yellow urine output MSK: no peripheral edema, moving all 4 extremities purposefully NEURO: Clear speech, no focal deficits LABORATORY RESULTS (LAST 24 HOURS) CBC/PT/INR WBC RBC Hgb Hct MCV RDW Plt PT aPTT INR 07/03/23152 10.1 2.52 7.5 22.8 91 14.6 347 Basic Metabolic Panel Na K Cl CO2 Gap Glu BUN Cr Ca Mg PO4 07/03/23152 3.1 Comment: Note updated reference ranges. 07/03/23152 1.7 Comment: Note updated reference ranges. 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 Lactic acidosis normalized however patient's gastric and bowel distention growing. NGT placed with somerelief on 06/25. Worsening leukocytosis 06/26, to OR for ex-lap, found to have necrotic bowel now s/pileocecectomy, primary ileocolic anastomosis and unavoidable bilateral ureteral transection at insertion into neobladder/conduit in the process of detorsing bowel s/p ureteral reimplantation by urology. 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 Patient remains in SICU for EVD management, remains stable, now with return of bowel function. Tolerating diet, good pain control. Plan - GEOLOGICAL ENGINEERING TEACHER shunt and EVD management per neurosurgery. Awaiting final CSF culture results. Undergoing clamp trial. - Appreciate urology recs: maintain TOD drain, monitor urostomy outputs. - Regular diet - No activity restrictions - Completed 4d broad spectrum abx for necrotic bowel on 06/30, no need for ongoing abx from EGS perspective - Remainder per SICU - Appreciate SICU care Plan of care discussed with attending Surgeon, Dr. Stovall. Elidia Berkowitz MD Emergency General Surgery Please page: EGS ED/Consult Pager [phone] for new patients EGS Floor pager [phone] for established patients Associated attestation - Kyrie Stovall MD - 07/03/2023 6:00 PM EDT Images from the original note were not included. Teaching Physician Note: I saw and evaluated the patient. I personally obtained the gordon and critical portions of the historyand physical exam. I reviewed the resident's/STEVE's documentation and discussed the patient with theresident/STEVE. I agree with the medical decision making as documented in the resident's/STEVE's note, with the following addenda/exceptions: JAIRO EVD remains clamped per NSGY, planning for CTH 07/04 Continue diet as tolerate Kyrie Stovall MD Division of Trauma, Critical Care, N[place], and Emergency General Surgery Department of Surgery [facility] [phone] * Chelsie Barbour RN - 07/03/2023 11:10 AM EDT Wound Ostomy Continence (WOC) Nursing Consult Reason for visit: Ostomy Care RN Assigned to Patient During Consult: Kimberly Traylor, ALISTAIR. Assessment/Findings: Patient seen in the SICU, resting comfortably in recliner chair upon entering room. She is pleasantand accepting of ostomy care at this time. Patient reports no issues with pouch thus far, and pouchchanged today without issue. Type of Stoma: ileal conduit Location: RLQ Pouching System Removed: Removed, from top to bottom, using adhesive remover wipes. Back of flange inspected to assess wear/fit. Circumferentially bloated Tubes/drains Present: stoma trujillo and ureteral stents present Stoma Measurement (inches): 1 rounded Mucosa: pink and moist Mucocutaneous Juncture: intact Peristomal Skin: clear and intact Abdominal Contour: rounded with concave depression circumferentially surrounding stoma Peristomal Tissue: soft Output: pink tinged urine coming from stoma trujillo, clear yellow urine coming from bilateral stents Protrusion: slightly budded, buds more with convexity Peristomal Skin Care: Peristomal skin cleansed using soap and water, then dried. Skin then dusted with stomahesive powder, excess powder dusted off. Pouching System Applied: Coloplast SenSura Beaver (Medium, 08/21 -1 08/29 ) Deep Convex MAXI Cut to Fit Urostomy Pouch #[id number] with Brava moldable ring (4.2 mm) #[id number] and Brava U-shaped elastic barrier strips #[id number] Expected Wear Time: 3-4 days Education Provided: N/A Patient Response: N/A Recommend GI soft diet (when solid food is deemed medically appropriate) for 4-6 weeks post-operatively. Please consider consulting Nutrition for further education and reinforcement. Please encourage patient to read ostomy literature provided and to be hands-on with basic ostomy care (pouch emptying and tracking output as appropriate) Extra supplies were left at the bedside in a belongings bag marked with a bright green ostomy label. Please send with pt if/when transferred or discharged WOC team will continue to follow patient for ostomy care and education as appropriate. Total Time Spent with Patient: 20 minutes Plan for Next Visit: routine pouch change due Sunday07/06/23 The pouching described above was selected by a Certified Ostomy Nurse, specifically for this patient. If an alternative pouch is used for this patient without proper fitting, the chance of the pouch leaking could increase significantly, leading to issues with raquel-stomal skin integrity and future po uching difficulties. Therefore, it is important to make every effort to maintain the appropriate pouching system (or one that is comparable) in order to maintain a successful and adequate seal. Chelsie Barbour MSN, RN, CWOCN * Liat Guzmán MD - 07/03/2023 10:59 AM EDT Images from the original note were not included. 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 Admitted to ICU for EVD monitoring. Hospital Course: 06/24-06/25: Admitted to EGS for SBO with initial nonop mgmt. 06/26: Taken to OR for EVD externalization, exlap and SBO with IC anastamosis and recon of urostomy. 06/27: Awaiting ROBF. 06/28: NGT removed with return of bowel function. 06/29 -06/30: EVD with decreased outputs. 07/01: EVD clamping started. 24 Hour Events: NAEON, pain well-controlled, tolerating a diet, having bowel function. Tolerating EVD clamp trial. PHYSICAL EXAM Vital Signs: Vital sign ranges over the past 24 hours (retrieved 07/03/2023 at 10:59 AM): Tmax (24 hours): 98.2 F (36.8 C) Pulse Av.3 Min: 78 Max: 102 Systolic (24hrs), Av , Min:117 , Max:159 Diastolic (24hrs), Av, Min:49, Max:119 MAP (mmHg) Av.8 mmHg Min: 69 mmHg Max: 127 mmHg Resp Av.4 Min: 12 Max: 23 SpO2 Av.7 % Min: 98 % Max: 100 % 24 Hour Input/Output In: 1240 (17.2 mL/kg) [P.O.:1190; I.V.:50 (0 mL/kg/hr)] Out: 2564 (35.5 mL/kg) [Urine:2204 (1.3 mL/kg/hr); Drainage:360] Net: -1324 Weight: 72.3 kg Physical Exam: Constitutional: No distress. Neurological: No focal motor deficits. Cardiovascular: Regular rate and rhythm on tele. Pulmonary: Unlabored breathing on RA. Abdominal: Soft, non-distended, appropriately TTP, ileal conduit pink, TOD with serous output. Musculoskeletal: No edema. LABORATORY RESULTS (LAST 24 HOURS) CBC/PT/INR WBC RBC Hgb Hct MCV RDW Plt PT aPTT INR 07/03/23152 10.1 2.52 7.5 22.8 91 14.6 347 07/02/23301 11.1 2.82 7.9 25.2 89 15.3 304 07/01/23 0108 11.4 2.70 8.0 24.2 90 15.4 185 Basic Metabolic Panel Na K Cl CO2 Gap Glu BUN Cr Ca Mg PO4 07/03/23152 3.1 Comment: Note updated reference ranges. 07/03/23152 1.7 Comment: Note updated reference ranges. 07/03/23152 142 3.6 111 27 8 89 13 0.46 7.6 07/02/23301 3.6 Comment: Note updated reference ranges. 07/02/23301 1.8 Comment: Note updated reference ranges. 03/18/24 0302 144 3.7 109 29 10 97 15 0.49 8.0 07/01/23 1328 143 3.5 104 28 15 158 14 0.45 8.0 07/01/23107 3.1 Comment: Note updated reference ranges. 07/01/23 010 1.9 Comment: Note updated reference ranges. 07/01/23107 144 2.9 106 31 10 136 14 0.44 8.1 Arterial Blood Gases None IMAGING RESULTS (PERSONALLY REVIEWED) None today. 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), and bladder cancer s/p cystectomy and ileal conduit in 2021 who on presented on 06/24 with concern for closed loop small bowel obstruction s/p externalization of GEOLOGICAL ENGINEERING TEACHER shunt, EVD, exploratory laparotomy, bilateral ureteroileal reimplant, uretroenterostomy, RONALD, bowel resection on 06/26 Diagnosis: - Small bowel obstruction with bowel ischemia - Iatrogenic injury to bilateral ureters with ureteral reimplantation - GEOLOGICAL ENGINEERING TEACHER shunt contamination PMHx: - HTN - Type 1 DM (on Insulin pump) - Asthma - 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) - Bladder cancer s/p cystectomy and ileal conduit in 2021 Plan Neurologic - Analgesia: PRN Tylenol & Oxycodone - NSY following: Keep EVD clamped for 72hours and then obtain a CT Head wo contrast on 07/04 Posaconazole 300mg PO daily for antifungal ppx Respiratory - Respiratory Automobile [employer] Steam Protocol - Bronchopulmonary Hygiene - Incentive Spirometer - No acute resp concerns - PRN Albuterol for history of asthma Cardiovascular - Continue home Metoprolol XL 100mg daily - PRN Hydralazine and Labetalol for SBP > 160 GI - Continue regular diet - Bowel regimen - PRN Zofran Renal/ - Measure I&O - Daily BMP, Mg, Phos -> replace as needed (Maintain K >4, Phos >3, Mg >2) - Urology following: Maintain b/L stents Okay for TOD drain and stoma trujillo removal just prior to d/c Endo - Home insulin pump off (patient estimates total daily insulin at home at ~70units - Decrease 30 units of Lantus BID to 25 units of Lantus BID d/t hypoglycemia - Sliding scale insulin ACHS Heme - No indication for transfusion at this time - Daily CBC ID - Zosyn for 4 days post-op (ended 06/30) - Patient on meningitis prophylaxis outpatient with posaconazole 300 mg PO MSK - - Progressive mobility protocol - PT/OT -> ok for home when medically cleared Prophylaxis: VTE - SCDs, Lovenox 50 BID antiXa level on 06/30 0.38 Tubes/Lines/Drain - EVD - Left abdominal TOD - Ileal conduit - Left arm PICC - PIVs CODE status: Full Code DISPO: ICU given need for EVD Follow Up: EGS Urology Neurosurgery Nan Iverson MD Critical Care Provider Statement I saw and evaluated the patient. I personally obtained the gordon and critical portions of the historyand physical exam. I reviewed the resident's documentation and discussed the patient with the resident. I agree with the resident's medical decision making as documented in the resident's note. Critical care was necessary because of an illness or injury that acutely impaired one or more vitalorgans systems such that there was a high probability of imminent or life threatening deteriorationin the patient s condition. The following organ systems are involved: urologic, neuro, gi Critical care time was provided for 20 minutes by the attending physician. The time involved in theperformance of this care was exclusive of separately billable procedures, teaching time and treating other patients. This time was spent personally by the attending physician for the following activities: examination of patient, ordering and/or performing treatments, ordering and reviewing laboratory and radiographic studies, and if applicable, ventilatory management and blood gas interpretation. River Guzmán MD MPH ICU Attending * Marcelle, July, PROCUREMENT DIRECTOR-STABLE HELPER - 07/03/2023 7:05 AM EDT Images from the original note were not included. [facility] NEUROSURGERY DAILY PROGRESS NOTE SUBJECTIVE: Valve setting increased from 7 -> 8 yesterday No overnight events OBJECTIVE: Vitals: Vital sign ranges over the past 24 hours (retrieved 07/03/2023 at 7:05 AM): Tmax (24 hours): 98.5 F (36.9 C) Pulse Av Min: 78 Max: 102 Systolic (24hrs), Av , Min:117 , Max:159 Diastolic (24hrs), Av, Min:49, Max:119 MAP (mmHg) Av.7 mmHg Min: 69 mmHg Max: 127 mmHg Resp Av.6 Min: 13 Max: 23 SpO2 Av.7 % Min: 98 % Max: 100 % In: 1240 (17.2 mL/kg) [P.O.:1190; I.V.:50 (0 mL/kg/hr)] Out: 2364 (32.7 mL/kg) [Urine:2004 (1.2 mL/kg/hr); Drainage:360] Net: -1124 Weight: 72.3 kg Medications: magnesium sulfate 4,000 mg One Time Dose senna 8.6 mg At Bedtime insulin glargine 30 Units BID metoprolol 100 mg Daily enoxaparin 50 mg 2x Daily hydrophilic wound dressing 2x Daily Posaconazole 300 mg Daily insulin lispro 3-18 Units 4x Daily PC & HS oxyCODONE 2.5 mg Q4H PRN oxyCODONE 5 mg Q4H PRN acetaminophen 650 mg Q6H PRN ondansetron 4 mg Q6H PRN albuterol 2.5 mg Q6H PRN labetalol 20 mg Q6H PRN hydrALAZINE 10 mg Q6H PRN dextrose iv for hypoglycemia orderable 125 mL PRN Or glucagon 1 mg PRN Or dextrose 15 g of glucose PRN Or dextrose 30 g of glucose PRN Labs: CBC/PT/INR WBC RBC Hgb Hct MCV RDW Plt PT aPTT INR 07/03/23 0153 10.1 2.52 7.5 22.8 91 14.6 347 07/02/23 0302 11.1 2.82 7.9 25.2 89 15.3 304 07/01/23 0108 11.4 2.70 8.0 24.2 90 15.4 185 WBC/Diff None Basic Metabolic Panel Na K Cl CO2 Gap Glu BUN Cr Ca Mg PO4 07/03/23 0153 3.1 Comment: Note updated reference ranges. 07/03/23 0153 1.7 Comment: Note updated reference ranges. 07/03/23 0153 142 3.6 111 27 8 89 13 0.46 7.6 07/02/23 0302 3.6 Comment: Note updated reference ranges. 07/02/23 0302 1.8 Comment: Note updated reference ranges. 07/02/23 0302 144 3.7 109 29 10 97 15 0.49 8.0 07/01/23 1328 143 3.5 104 28 15 158 14 0.45 8.0 07/01/23 0108 3.1 Comment: Note updated reference ranges. 07/01/23 0108 1.9 Comment: Note updated reference ranges. 07/01/23 0108 144 2.9 106 31 10 136 14 0.44 8.1 Hepatic/Biliary/Pancreas None Cardiac None Arterial Blood Gases None Fingerstick Glucose Glucose 07/03/23 0333 96 07/03/23 0231 74 07/03/23 0136 124 07/03/23 0117 51 Comment: Result Not Confirmed
07/03/23 0058 51 Comment: Follow Protocol
07/02/23 2217 85 07/02/23 1830 189 07/02/23 1204 116 Comment: Notified ALISTAIR KEY MD
07/02/23 0903 75 CSF Culture CSF culture 06/28/23 1508 No growth to date, culture reincubated [P] [P] - Preliminary Result Urine Culture Urine culture 06/25/23 1508 Positive Culture Report >100,000 CFU/ml Escherichia coli >100,000 CFU/ml Providencia rettgeri Pyogen Culture None Blood Culture None Sputum Culture None Physical Exam: Awake, alert Ox3 PERRL EOMI Face symmetric, tongue midline BU 5/5, no drift RLE 5/5 LLE with fracture/splint, wiggles toes Sensation intact to light touch Dressing at clavicle c/d/I Shunt patent A: Pt is a 58 year old year old female PMH of T1DM cb/ DKA, urothelial carcinoma of the bladder s/pradical cystectomy and ileal conduit c/b SBO (Dec 2021), HTN, chronic sinusitis, asthma, persistent encephalopathy and hydrocephalus 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 NSGY consulted by ACS in setting of patient requiring surgical intervention for SBO and need for possibleOR availability to externalize VPS. Valve setting increased to 8 (07/01): P: -SICU under EGS -Keep EVD clamped at level of the clavicle. -Will keep patient clamped for 72hours and then obtain a CT Head wo contrast on 07/04 -no need to tranduce ICP's -abx per general surgery -appreciate ID consult - please comment on fungal meningitis as approaching end of antifungal duration -PT/OT -CSF studies unremarkable. Culture NGTD. -NSGY to follow Kacie LEAVITT, PROCUREMENT DIRECTOR-MARIS Neurosurgery [phone] * Val Lopez MD - 07/02/2023 6:14 PM EDT Images from the original note were not included. UROLOGY PROGRESS NOTE Subjective: Sitting in bed, feels achy and tired after working with PT. Otherwise feels well. Physical Exam: Vital sign ranges over the past 24 hours (retrieved 07/02/2023 at 6:14 PM): Tmax (24 hours): 98.7 F (37.1 C) Pulse Av.3 Min: 79 Max: 97 Systolic (24hrs), Av , Min:115 , Max:154 Diastolic (24hrs), Av, Min:42, Max:89 MAP (mmHg) Av.4 mmHg Min: 67 mmHg Max: 107 mmHg Resp Av.8 Min: 10 Max: 22 SpO2 Av.9 % Min: 97 % Max: 100 % Gen: Alert, well developed, lying in bed HEENT: moist mucous membranes CV: RRR Pulm: Non labored on RA ABD: Soft, mildly distended, appropriately tender to palpation. No guarding/rebound. Midline incision c/d/I with lorna, TOD serous : stoma pink with 2 ureteral stents (L at an angle), urine clear yellow Neuro: No focal deficits, Ox3, appropriate Ext: no edema, warm and dry Psych: appropriate mood and behavior Ins and Outs: In: 795 (11 mL/kg) [P.O.:645; I.V.:150 (0.1 mL/kg/hr)] Out: 2214 (30.6 mL/kg) [Urine:1900 (1.1 mL/kg/hr); Drainage:280] Net: -1419 Weight: 72.3 kg Date 07/02/23 0700 - 07/03/23 0659 Shift 1403-3376 9332-9062 9297-5831 24 Hour Total INTAKE Shift Total(mL/kg) OUTPUT Urine(mL/kg/hr) 815(1.4) 175 990 Drainage 100 100 Other 3 3 Shift Total(mL/kg) 918(12.7) 175(2.4) 1093(15.1) Weight (kg) 72.3 72.3 72.3 72.3 Medications: Scheduled senna 8.6 mg At Bedtime insulin glargine 30 Units BID metoprolol 100 mg Daily enoxaparin 50 mg 2x Daily hydrophilic wound dressing 2x Daily Posaconazole 300 mg Daily insulin lispro 3-18 Units 4x Daily PC & HS PRN oxyCODONE 2.5 mg Q4H PRN oxyCODONE 5 mg Q4H PRN acetaminophen 650 mg Q6H PRN ondansetron 4 mg Q6H PRN albuterol 2.5 mg Q6H PRN labetalol 20 mg Q6H PRN hydrALAZINE 10 mg Q6H PRN dextrose iv for hypoglycemia orderable 125 mL PRN Or glucagon 1 mg PRN Or dextrose 15 g of glucose PRN Or dextrose 30 g of glucose PRN IV Labs: Basic Metabolic Panel Na K Cl CO2 Gap Glu BUN Cr Ca Mg PO4 07/02/23 0302 3.6 Comment: Note updated reference ranges. 07/02/23 0302 1.8 Comment: Note updated reference ranges. 07/02/23 030 144 3.7 109 29 10 97 15 0.49 8.0 07/01/23 1328 143 3.5 104 28 15 158 14 0.45 8.0 07/01/23 0108 3.1 Comment: Note updated reference ranges. 07/01/23 0108 1.9 Comment: Note updated reference ranges. 07/01/23 0108 144 2.9 106 31 10 136 14 0.44 8.1 06/30/23 0544 151 3.1 112 30 12 128 15 0.44 7.8 06/30/23 0544 2.4 Comment: Note updated reference ranges. 06/30/23 0544 1.7 Comment: Note updated reference ranges. CBC/PT/INR WBC RBC Hgb Hct MCV RDW Plt PT aPTT INR 07/02/23 0302 11.1 2.82 7.9 25.2 89 15.3 304 07/01/23 0108 11.4 2.70 8.0 24.2 90 15.4 185 06/30/23 0544 10.3 2.71 8.1 24.4 90 16.3 150 WBC/Diff None Arterial Blood Gases None Hepatic/Biliary/Pancreas T Prot Albumin D Bili T Bili Alk Phos ALT AST Amylase Lipase 06/30/23 0544 4.9 2.9 0.31 1.5 60 12 7 Fingerstick Glucose (last 72 hours) (Last 10 results in the past 72 hours) Glucose 07/02/23 1204 116 Comment: Notified ALISTAIR KEY MD
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 Presented to the ED 06/25 and was found to have a closed loop bowel obstruction. Now s/p XL, bowel resection w/ primary anastomosis, b/L ureteral reimplant on 06/26. 07/01 TOD Cr negative - Maintain b/L ureteral stents - Strict I/Os, trend labs - OK for TOD drain and stoma trujillo removal just prior to d/c - WOCN consult for stoma care and supplies - Will continue to follow Patient d/w attending Dr. Yeimy Lopez MD Urology PGY-5 Team Pager [phone] * Chelsie Barbour RN - 07/02/2023 11:16 AM EDT Wound Ostomy Continence (WOC) Nursing Consult Reason for visit: Ostomy appliance seal check RN Assigned to Patient During Consult: Kimberly Traylor, ALISTAIR. Assessment/Findings: Pouch seal assessed and found to remain intact without evidence of excessive bloating or undermining. Provided patient with DME information. No further questions from patient at this time. Extra pouching supplies left at bedside. WOC team will continue to follow patient for ostomy care and education as appropriate. Plan for Next Visit: plan for pouch change tomorrow Chelsie Barbour MSN, RN, CWOCN * Zarina Harrison PA-C - 07/02/2023 8:33 AM EDT Images from the original note were not included. [facility] DIVISION OF ACUTE CARE SURGERY GENERAL INFORMATION EMERGENCY GENERAL SURGERY NOTE Patient Name: Chikis Tobar Admission Date: 06/25/2023 Patient seen and examined on 07/02/2023 INTERVAL HISTORY/EVENTS Background Narrative: Chiiks Tobar is a 58 year old female with PMH of HTN, DM, Asthma, fungal meningitis and Bladdercancer s/p Cystectomy and ileal conduit in 2020. She is now presenting with small bowel obstruction. Patient had elevated lactate on presentation in the setting of minimal abdominal tenderness, appropriately downtrending after fluid resuscitation. Plan to Admit to EGS service on . Hospital Course/Procedures: 06/24: admitted to EGS with concern for SBO possible closed loop 06/25: worsening abdominal pain. NGT placed. 06/26: leukocytosis. 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 Admittedto SICU post-operatively for EVD, neuro checks. 06/27: Improved symptomatically, no acute events 06/28: Passed gas. NGT removed. Started on clears. 06/29: Tolerated regular diet 06/30: JAIRO, minimal EVD output Events in last 24 hours: No acute events overnight Abdominal well controlled Tolerating regular diet EVDS clamped by Neurosurgery this morning TOD drain 260cc EVDS 40 cc PHYSICAL EXAM Vitals: Vital sign ranges over the past 24 hours (retrieved 07/02/2023 at 8:33 AM): Tmax (24 hours): 98.7 F (37.1 C) Pulse Av.9 Min: 79 Max: 99 Systolic (24hrs), Av , Min:115 , Max:172 Diastolic (24hrs), Av, Min:42, Max:89 MAP (mmHg) Av.3 mmHg Min: 67 mmHg Max: 107 mmHg Resp Av Min: 9 Max: 22 SpO2 Av % Min: 97 % Max: 100 % 24 Hour Input/Output In: 1020 (14.1 mL/kg) [P.O.:770; I.V.:250 (0.1 mL/kg/hr)] Out: 1815 (25.1 mL/kg) [Urine:1515 (0.9 mL/kg/hr); Drainage:260] Net: -795 Weight: 72.3 kg Physical Exam: General: Reclined in bed, in NAD, partially eaten breakfast tray at bedside HEENT: normocephalic, GEOLOGICAL ENGINEERING TEACHER shunt catheter externalized at level of clavicle, clamped CV: Not tachycardic, NSR on monitor Pulm: satting well on RA, chest rise symmetric, no increased WOB Abdomen: Soft, ND, appropriately tender near midline and drain insertion site, midline well approximated with lorna in place, no active drainage, no erythema, LLQ TOD with light yellow, blood tingedoutput, urostomy in RLQ with yellow urine output MSK: no peripheral edema, moving all 4 extremities purposefully NEURO: Clear speech, no focal deficits LABORATORY RESULTS (LAST 24 HOURS) CBC/PT/INR WBC RBC Hgb Hct MCV RDW Plt PT aPTT INR 07/02/23301 11.1 2.82 7.9 25.2 89 15.3 304 Basic Metabolic Panel Na K Cl CO2 Gap Glu BUN Cr Ca Mg PO4 07/02/23301 3.6 Comment: Note updated reference ranges. 07/02/23301 1.8 Comment: Note updated reference ranges. 07/02/23301 144 3.7 109 29 10 97 15 0.49 8.0 07/01/23 1328 143 3.5 104 28 15 158 14 0.45 8.0 Arterial Blood Gases None IMAGING RESULTS - Last 24 hours (PERSONALLY REVIEWED) No new imaging this morning DIAGNOSIS & PLAN Diagnoses: Bowel ischemia 2/2 small bowel closed loop obstruction s/p ex-lap, ileocecectomy, primary ileocolicanastomosis Bilateral ureteral transection to detorse bowel s/p ureteral reimplantation (urology) GEOLOGICAL ENGINEERING TEACHER shunt externalization (NSGY) Lactic acidosis (resolved) Assessment: 58F with hx bladder cancer s/p cystectomy and ileal conduit in 2020 ([facility]) now presenting with si/sx concerning for small bowel obstruction, possibly secondary to closed loop. Lactic acidosis normalized however patient's gastric and bowel distention growing. NGT placed with somerelief on 06/25. Worsening leukocytosis 06/26, to OR for ex-lap, found to have necrotic bowel now s/pileocecectomy, primary ileocolic anastomosis and unavoidable bilateral ureteral transection at insertion into neobladder/conduit in the process of detorsing bowel s/p ureteral reimplantation by urology. 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 Patient remains in SICU for EVD management, remains stable, now with return of bowel function. Tolerating diet, good pain control. Plan - GEOLOGICAL ENGINEERING TEACHER shunt and EVD management per neurosurgery. Awaiting final CSF culture results. Undergoing clamp trial 07/01. - Appreciate urology recs: maintain TOD drain, monitor urostomy outputs. - Regular diet - No activity restrictions - Completed 4d broad spectrum abx for necrotic bowel on 06/30, no need for ongoing abx from EGS perspective - Remainder per SICU - Appreciate SICU care Plan of care discussed with attending Surgeon, Dr. Stovall. Zarina Harrison PA-C Emergency General Surgery Please page: EGS ED/Consult Pager [phone] for new patients EGS Floor pager [phone] for established patients Associated attestation - Kyrie Stovall MD - 07/02/2023 2:40 PM EDT Images from the original note were not included. Teaching Physician Note: I saw and evaluated the patient. I personally obtained the gordon and critical portions of the historyand physical exam. I reviewed the resident's/STEVE's documentation and discussed the patient with theresident/STEVE. I agree with the medical decision making as documented in the resident's/STEVE's note, with the following addenda/exceptions: Tolerating diet Pain controlled EVD capped per NSGY, appreciate recs Continue diet as tolerated In SICU for neurochecks and management of EVD Split/Shared Documentation I approve the management plan for this patient and take responsibility for the plan as documented. Independent Interpretation of Tests Performed by Another Physician/STEVE: I personally performed, reviewed, and interpreted labs, exam with findings of see above. Decisionmaking is mine.. Kyrie Stovall MD Division of Trauma, Critical Care, Nieves, and Emergency General Surgery Department of Surgery [facility] [phone] * Liat Guzmán MD - 07/02/2023 8:10 AM EDT Images from the original note were not included. GENERAL INFORMATION TRAUMA ICU - STAFF NOTE Patient seen and examined on 07/02/2023 Patient Name: Chikis Tobar Admission Date: 06/25/2023 INTERVAL HISTORY/EVENTS Background: Chikis Tobar is a 58 year old female presenting to SICU POD #0 s/p externalization of GEOLOGICAL ENGINEERING TEACHER shunt,EVD, exploratory laparotomy, bilateral ureteroileal reimplant, uretroenterostomy, RONALD, bowel resection. Chikis Tobar is a 58 year old female with PMH of HTN, DM1 with DKA, Asthma, fungal meningitis and Bladder cancer s/p Cystectomy and ileal conduit in 2021. She presented on 06/24 with a small bowelobstruction and admitted to [facility]. Patient had elevated lactate on presentation in the setting of minimal abdominal tenderness, appropriately downtrending after fluid resuscitation. Patient had a benign abdominal exam, however given the increasing WBC count and imaging for SBO decision was made to take patient to operating room for exploratory laparotomy. Intraoperatively, ischemic bowel was encountered and resected. Complications included transection of ureters requiring intraoperative urology consult for reimplantation into ileal conduit. Given contamination of GEOLOGICAL ENGINEERING TEACHER shunt, neurosurgery was also consulted intraoperatively for externalization. Patient arrives to ICU in stable condition, breathing spontaneously. Requires EVD monitoring. High risk for clinical deterioration. Hospital Course: 06/24: admitted to [facility] for SBO 06/25: abdominal pain improved 3:13: N.G tube in place, pain controlled 06/27:post op day 1, EVD externalization, exlap and SBO with IC anastamosis and recon of urostomy 06/28: passing gas, nasograstric tube out 06/29: Tolerated diet, ambulated 06/30: NAEO. Bms are becoming more formed, pain controlled, EVD with decreased outputs 24 Hour Events: NAEO. Bms are becoming more formed, pain controlled, EVD with decreased outputs. Clamp trial of EVDplanned for today PHYSICAL EXAM Vital Signs: Vital sign ranges over the past 24 hours (retrieved 07/02/2023 at 8:10 AM): Tmax (24 hours): 98.7 F (37.1 C) Pulse Av.9 Min: 79 Max: 99 Systolic (24hrs), Av , Min:115 , Max:172 Diastolic (24hrs), Av, Min:42, Max:89 MAP (mmHg) Av.3 mmHg Min: 67 mmHg Max: 107 mmHg Resp Av Min: 9 Max: 22 SpO2 Av % Min: 97 % Max: 100 % 24 Hour Input/Output In: 1020 (14.1 mL/kg) [P.O.:770; I.V.:250 (0.1 mL/kg/hr)] Out: 1815 (25.1 mL/kg) [Urine:1515 (0.9 mL/kg/hr); Drainage:260] Net: -795 Weight: 72.3 kg Physical Exam: Constitutional: No distress. Lying in bed. Neurological: No focal motor deficits. GCS of 15. EVD drain at 0 with clear output. Cardiovascular: Regular rate and rhythm on tele Pulmonary: unlabored breathing on RA Abdominal: Soft. Non-distended. Appropriately TTP, yellow ileal conduit output. TOD with serous output (80 mL/24h) Musculoskeletal: No edema LABORATORY RESULTS (LAST 24 HOURS) CBC/PT/INR WBC RBC Hgb Hct MCV RDW Plt PT aPTT INR 07/02/23 030 11.1 2.82 7.9 25.2 89 15.3 304 07/01/23 0108 11.4 2.70 8.0 24.2 90 15.4 185 06/30/23 0544 10.3 2.71 8.1 24.4 90 16.3 150 Basic Metabolic Panel Na K Cl CO2 Gap Glu BUN Cr Ca Mg PO4 07/02/23 0302 3.6 Comment: Note updated reference ranges. 07/02/23 0302 1.8 Comment: Note updated reference ranges. 07/02/23 030 144 3.7 109 29 10 97 15 0.49 8.0 07/01/23 1328 143 3.5 104 28 15 158 14 0.45 8.0 07/01/23 0108 3.1 Comment: Note updated reference ranges. 07/01/238 1.9 Comment: Note updated reference ranges. 07/01/23107 144 2.9 106 31 10 136 14 0.44 8.1 06/30/23 0544 151 3.1 112 30 12 128 15 0.44 7.8 06/30/23 0544 2.4 Comment: Note updated reference ranges. 06/30/23 0544 1.7 Comment: Note updated reference ranges. 06/29/23 1304 153 5.8 116 27 16 309 24 0.59 8.0 Arterial Blood Gases None IMAGING RESULTS (PERSONALLY REVIEWED) ASSESSMENT & PLAN Chikis Tobar is a 58 year old female with PMH of HTN, DM1 with hx of DKA, Asthma, hx of hydrocephalus with GEOLOGICAL ENGINEERING TEACHER shunt complicated by fungal meningitis and urothelial carcinoma of the bladder s/p radical cystectomy and ileal conduit (Apr 2021). [facility] signs and symptomsconsistent with SBO. Pt was taken to the operatives suite on 06/26 for exploratory laparotomy, bowelresection, ileal conduit revision, and externalization of GEOLOGICAL ENGINEERING TEACHER shunt. Diagnosis: Small bowel obstruction Bowel ischemia Hydrocephalus with GEOLOGICAL ENGINEERING TEACHER shunt Type 1 Diabetes Iatrogenic injury to bilateral ureters Ureteral reimplantation, ileal conduit Hyperglycemia PMHx HTN, DM1, Asthma, hydrocephalus, fungal meningitis, urothelial carcinoma Plan Neurologic Analgesia: Tylenol 650mg q6hr, Oxycodone 2.5/5 prn q4 - minimal pain, wean as able NSY consult -Keep EVD clamped at level of the clavicle. Will adjust shunt to 8 today for clamp trial. -Will keep patient clamped for 72hours and then obtain a CT Head wo contrast on 07/04 (ordered) -no need to tranduce ICP's -CSF pending studies per NSG - posaconazole 300 mg PO daily for antifungal ppx Respiratory Respiratory Automobile Washer Steam Protocol Bronchopulmonary Hygiene Incentive Spirometer No acute resp concerns Cardiovascular Monitor Vitals q4hrs PO metoprolol XL 100 mg BID (home dose) Prn hydral and labetalol GI Diet: regular diet Will start senna today given stools are forming Renal/ Measure I&O Daily BMP, Mg, Phos. Replace as needed (Maintain K >4, Phos >3, Mg >2). Urology following: -Maintain stents -Left-sided abd TOD drain, check Cr prior to d/c - drain removal per EGS Endo Home insulin pump off Patient estimates total daily insulin at home at ~70units Continue 30 units of Lantus BID Sliding scale insulin ACHS Heme No indication for transfusion at this time. Daily CBC ID Zosyn for 4 days post-op (End: 06/30) Patient on meningitis prophylaxis outpatient with posaconazole 300 mg PO MSK - Progressive mobility protocol PT/OT - ok for home when medically cleared Prophylaxis: VTE - SCDs, Lovenox 50 BID antiXa level on 06/30 0.38 Tubes/Lines/Drain EVD Left abdominal TOD Ileal conduit Left arm PICC PIV x3 CODE status: Full Code DISPO: step down given need for EVD Follow Up: EGS Urology Neurosurgery Lam East DO Critical Care Provider Statement I saw and evaluated the patient. I personally obtained the gordon and critical portions of the historyand physical exam. I reviewed the resident's documentation and discussed the patient with the resident. I agree with the resident's medical decision making as documented in the resident's note. Critical care was necessary because of an illness or injury that acutely impaired one or more vitalorgans systems such that there was a high probability of imminent or life threatening deteriorationin the patient s condition. The following organ systems are involved: GI, neuro, immune Critical care time was provided for 20 minutes by the attending physician. The time involved in theperformance of this care was exclusive of separately billable procedures, teaching time and treating other patients. This time was spent personally by the attending physician for the following activities: examination of patient, ordering and/or performing treatments, ordering and reviewing laboratory and radiographic studies, and if applicable, ventilatory management and blood gas interpretation. River Guzmán MD MPH ICU Attending * Isaías Hardin MD - 07/02/2023 6:43 AM EDT Images from the original note were not included. [facility] NEUROSURGERY DAILY PROGRESS NOTE SUBJECTIVE: NAEO. EVD draining with no issues overnight. OBJECTIVE: Vitals: Vital sign ranges over the past 24 hours (retrieved 07/02/2023 at 6:43 AM): Tmax (24 hours): 98.7 F (37.1 C) Pulse Av Min: 79 Max: 99 Systolic (24hrs), Av , Min:115 , Max:172 Diastolic (24hrs), Av, Min:42, Max:103 MAP (mmHg) Av mmHg Min: 67 mmHg Max: 120 mmHg Resp Av.2 Min: 9 Max: 22 SpO2 Av % Min: 97 % Max: 100 % In: 1140 (15.8 mL/kg) [P.O.:790; I.V.:350 (0.2 mL/kg/hr)] Out: 1911 (26.4 mL/kg) [Urine:1600 (0.9 mL/kg/hr); Drainage:290] Net: -771 Weight: 72.3 kg Medications: potassium chloride 40 mEq One Time Dose magnesium sulfate 2,000 mg One Time Dose insulin glargine 30 Units BID metoprolol 100 mg Daily enoxaparin 50 mg 2x Daily hydrophilic wound dressing 2x Daily Posaconazole 300 mg Daily insulin lispro 3-18 Units 4x Daily PC & HS ondansetron 4 mg Q6H PRN albuterol 2.5 mg Q6H PRN labetalol 20 mg Q6H PRN hydrALAZINE 10 mg Q6H PRN oxyCODONE 5 mg Q4H PRN oxyCODONE 10 mg Q4H PRN acetaminophen 650 mg Q4H PRN dextrose iv for hypoglycemia orderable 125 mL PRN Or glucagon 1 mg PRN Or dextrose 15 g of glucose PRN Or dextrose 30 g of glucose PRN Labs: CBC/PT/INR WBC RBC Hgb Hct MCV RDW Plt PT aPTT INR 07/02/23301 11.1 2.82 7.9 25.2 89 15.3 304 07/01/23 0108 11.4 2.70 8.0 24.2 90 15.4 185 06/30/23 0544 10.3 2.71 8.1 24.4 90 16.3 150 WBC/Diff None Basic Metabolic Panel Na K Cl CO2 Gap Glu BUN Cr Ca Mg PO4 07/02/23301 3.6 Comment: Note updated reference ranges. 07/02/23 0302 1.8 Comment: Note updated reference ranges. 07/02/23 0302 144 3.7 109 29 10 97 15 0.49 8.0 07/01/23 1328 143 3.5 104 28 15 158 14 0.45 8.0 07/01/23 0108 3.1 Comment: Note updated reference ranges. 07/01/23 0108 1.9 Comment: Note updated reference ranges. 07/01/23 0108 144 2.9 106 31 10 136 14 0.44 8.1 06/30/23 0544 151 3.1 112 30 12 128 15 0.44 7.8 06/30/23 0544 2.4 Comment: Note updated reference ranges. 06/30/23 0544 1.7 Comment: Note updated reference ranges. 06/29/23 1304 153 5.8 116 27 16 309 24 0.59 8.0 Hepatic/Biliary/Pancreas T Prot Albumin D Bili T Bili Alk Phos ALT AST Amylase Lipase 06/30/23 0544 4.9 2.9 0.31 1.5 60 12 7 Cardiac None Arterial Blood Gases None Fingerstick Glucose Glucose 07/01/23 2257 177 07/01/23 2040 298 07/01/23 1736 227 07/01/23 1235 117 07/01/23 1115 72 07/01/23 0915 69 CSF Culture CSF culture 06/28/23 1508 No growth to date, culture reincubated [P] [P] - Preliminary Result Urine Culture Urine culture 06/25/23 1508 Positive Culture Report >100,000 CFU/ml Escherichia coli >100,000 CFU/ml Providencia rettgeri Pyogen Culture None Blood Culture None Sputum Culture None Physical Exam: Awake, alert Ox3 PERRL EOMI Face symmetric, tongue midline BU 5/5, no drift RLE 5/5 LLE with fracture/splint, wiggles toes Sensation intact to light touch Dressing at clavicle c/d/I Shunt patent A: Pt is a 58 year old year old female PMH of T1DM cb/ DKA, urothelial carcinoma of the bladder s/pradical cystectomy and ileal conduit c/b SBO (Dec 2021), HTN, chronic sinusitis, asthma, persistent encephalopathy and hydrocephalus 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 NSGY consulted by ACS in setting of patient requiring surgical intervention for SBO and need for possibleOR availability to externalize VPS. P: -SICU under EGS -Keep EVD clamped at level of the clavicle. Will adjust shunt to 8 today for clamp trial. -Will keep patient clamped for 72hours and then obtain a CT Head wo contrast on 07/04 -no need to tranduce ICP's -abx per general surgery -appreciate ID consult - please comment on fungal meningitis as approaching end of antifungal duration -PT/OT -CSF studies unremarkable. Culture NGTD. -NSGY to follow Isaías Hardin MD Neurological Surgery, PGY-2 Service Pager: [phone] 07/02/2023 - 6:43 AM * Jory Jaeger MD - 07/01/2023 10:42 AM EDT Images from the original note were not included. GENERAL INFORMATION TRAUMA ICU - STAFF NOTE Patient seen and examined on 07/01/2023 Patient Name: Chikis Tobar Admission Date: 06/25/2023 INTERVAL HISTORY/EVENTS Background: Chikis Tobar is a 58 year old female presenting to SICU POD #0 s/p externalization of GEOLOGICAL ENGINEERING TEACHER shunt,EVD, exploratory laparotomy, bilateral ureteroileal reimplant, uretroenterostomy, RONALD, bowel resection. Chikis Tobar is a 58 year old female with PMH of HTN, DM1 with DKA, Asthma, fungal meningitis and Bladder cancer s/p Cystectomy and ileal conduit in 2021. She presented on 06/24 with a small bowelobstruction and admitted to [facility]. Patient had elevated lactate on presentation in the setting of minimal abdominal tenderness, appropriately downtrending after fluid resuscitation. Patient had a benign abdominal exam, however given the increasing WBC count and imaging for SBO decision was made to take patient to operating room for exploratory laparotomy. Intraoperatively, ischemic bowel was encountered and resected. Complications included transection of ureters requiring intraoperative urology consult for reimplantation into ileal conduit. Given contamination of GEOLOGICAL ENGINEERING TEACHER shunt, neurosurgery was also consulted intraoperatively for externalization. Patient arrives to ICU in stable condition, breathing spontaneously. Requires EVD monitoring. High risk for clinical deterioration. Hospital Course: 06/24: admitted to [facility] for SBO 06/25: abdominal pain improved 3:13: N.G tube in place, pain controlled 06/27:post op day 1, EVD externalization, exlap and SBO with IC anastamosis and recon of urostomy 06/28: passing gas, nasograstric tube out 06/29: Tolerated diet, ambulated 24 Hour Events: No acute events overnight. Tolerating diet. Minimal EVD drainage. PHYSICAL EXAM Vital Signs: Vital sign ranges over the past 24 hours (retrieved 07/01/2023 at 10:42 AM): Tmax (24 hours): 98.5 F (36.9 C) Pulse Av.4 Min: 75 Max: 94 Systolic (24hrs), Av , Min:120 , Max:184 Diastolic (24hrs), Av, Min:52, Max:103 MAP (mmHg) Av.9 mmHg Min: 73 mmHg Max: 120 mmHg Resp Av.3 Min: 12 Max: 23 SpO2 Av.5 % Min: 96 % Max: 100 % 24 Hour Input/Output In: 1585 (21.9 mL/kg) [P.O.:935; I.V.:650 (0.4 mL/kg/hr)] Out: 3588 (49.6 mL/kg) [Urine:3235 (1.9 mL/kg/hr); Drainage:290] Net: Weight: 72.3 kg Physical Exam: Constitutional: No distress. Lying in bed. Neurological: No focal motor deficits. GCS of 15. EVD drain at 0 with clear output. Cardiovascular: Regular rate and rhythm. Pulmonary: Clear to auscultation bilaterally. No wheezing, rhonchi or rales. Abdominal: Soft. Non-distended. Appropriately TTP, yellow ileal conduit output. TOD with serosang output. Musculoskeletal: No edema. LABORATORY RESULTS (LAST 24 HOURS) CBC/PT/INR WBC RBC Hgb Hct MCV RDW Plt PT aPTT INR 07/01/23107 11.4 2.70 8.0 24.2 90 15.4 185 06/30/23 0544 10.3 2.71 8.1 24.4 90 16.3 150 06/29/237 10.6 2.97 9.0 26.5 89 16.4 149 Basic Metabolic Panel Na K Cl CO2 Gap Glu BUN Cr Ca Mg PO4 07/01/23107 3.1 Comment: Note updated reference ranges. 07/01/23107 1.9 Comment: Note updated reference ranges. 07/01/23107 144 2.9 106 31 10 136 14 0.44 8.1 06/30/2344 151 3.1 112 30 12 128 15 0.44 7.8 06/30/2344 2.4 Comment: Note updated reference ranges. 06/30/2344 1.7 Comment: Note updated reference ranges. 06/29/23 1304 153 5.8 116 27 16 309 24 0.59 8.0 06/29/237 2.3 Comment: Note updated reference ranges. 06/29/237 1.9 Comment: Note updated reference ranges. 06/29/23356 153 3.5 120 25 12 247 30 0.70 8.4 Arterial Blood Gases None IMAGING RESULTS (PERSONALLY REVIEWED) ASSESSMENT & PLAN Chikis Tobar is a 58 year old female with PMH of HTN, DM1 with hx of DKA, Asthma, hx of hydrocephalus with GEOLOGICAL ENGINEERING TEACHER shunt complicated by fungal meningitis and urothelial carcinoma of the bladder s/p radical cystectomy and ileal conduit (Apr 2021). [facility] signs and symptomsconsistent with SBO. Pt was taken to the operatives suite on 06/26 for exploratory laparotomy, bowelresection, ileal conduit revision, and externalization of GEOLOGICAL ENGINEERING TEACHER shunt. Diagnosis: Small bowel obstruction Bowel ischemia Hydrocephalus with GEOLOGICAL ENGINEERING TEACHER shunt Type 1 Diabetes Iatrogenic injury to bilateral ureters Ureteral reimplantation, ileal conduit Hyperglycemia PMHx HTN, DM1, Asthma, hydrocephalus, fungal meningitis, urothelial carcinoma Plan Neurologic Analgesia: Tylenol 650mg q6hr, Oxycodone 5/10 prn - minimal pain, wean as able NSY consult -Shunt externalized at the clavicle during ACS case as detailed in procedure note -Patino system to remain at 0 cm H2O -No need to transduce ICPs or adjust the patino system for drainage -CSF pending studies per NSG -NSG to follow for re-internalization of shunt vs removal: begin clamp trial on 07/01. - posaconazole 300 mg PO daily for antifungal ppx Respiratory Respiratory Automobile Washer Steam Protocol Bronchopulmonary Hygiene Incentive Spirometer No acute resp concerns Cardiovascular Monitor Vitals q4hrs Increase PO metoprolol XL from 50 BID to home dose of 100 mg BID Prn hydral and labetalol GI Diet: regular diet Holding bowel regimen due to copious liquid stools Monitor bms. If she continues to have diarrhea, will need to test for C diff Renal/ Measure I&O Daily BMP, Mg, Phos. Replace as needed (Maintain K >4, Phos >3, Mg >2). Hypokalemic. Repeat BMP in afternoon and replete again if needed. Urology following: -Maintain stents -Left-sided abd TOD drain, check Cr prior to d/c Endo Home insulin pump off Patient estimates total daily insulin at home at ~70units Continue 35 units of Lantus BID Sliding scale insulin ACHS Heme No indication for transfusion at this time. Daily CBC ID Zosyn for 4 days post-op (End: 06/30) Patient on meningitis prophylaxis outpatient with posaconazole 3000 mg PO MSK - Progressive mobility protocol PT/OT Prophylaxis: VTE - SCDs, Lovenox 50 BID, check antiXa level on 06/30 at 1am Tubes/Lines/Drain EVD Left abdominal TOD Ileal conduit Left arm PICC PIV x3 CODE status: Full Code DISPO: step down given need for EVD Follow Up: EGS Urology Neurosurgery Jory Jaeger MD Division of Trauma, Critical Care, Nieves, and Emergency General Surgery Department of Surgery [facility] [phone] * Eva Mcgarry MD - 07/01/2023 10:30 AM EDT Images from the original note were not included. [facility] DIVISION OF ACUTE CARE SURGERY GENERAL INFORMATION EMERGENCY GENERAL SURGERY NOTE Patient Name: Chikis Tobar Admission Date: 06/25/2023 Patient seen and examined on 07/02/2023 INTERVAL HISTORY/EVENTS Background Narrative: Chikis Tobar is a 58 year old female with PMH of HTN, DM, Asthma, fungal meningitis and Bladdercancer s/p Cystectomy and ileal conduit in 2020. She is now presenting with small bowel obstruction. Patient had elevated lactate on presentation in the setting of minimal abdominal tenderness, appropriately downtrending after fluid resuscitation. Plan to Admit to EGS service on RNF. Hospital Course/Procedures: 06/24: admitted to EGS with concern for SBO possible closed loop 06/25: worsening abdominal pain. NGT placed. 06/26: leukocytosis. 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 Admittedto SICU post-operatively for EVD, neuro checks. 06/27: Improved symptomatically, no acute events 06/28: Passed gas. NGT removed. Started on clears. 06/29: Tolerated regular diet Events in last 24 hours: No acute events overnight Patient feels good. Denied abdominal pain, n/v, fever, chills, malaise. Tolerating diet TOD 290 cc EVDS 56 PHYSICAL EXAM Vitals: Vital sign ranges over the past 24 hours (retrieved 07/02/2023 at 12:30 AM): Tmax (24 hours): 98.5 F (36.9 C) Pulse Av.3 Min: 75 Max: 99 Systolic (24hrs), Av , Min:120 , Max:172 Diastolic (24hrs), Av, Min:42, Max:103 MAP (mmHg) Av.7 mmHg Min: 67 mmHg Max: 120 mmHg Resp Av.8 Min: 9 Max: 22 SpO2 Av.9 % Min: 97 % Max: 100 % 24 Hour Input/Output In: 1140 (15.8 mL/kg) [P.O.:790; I.V.:350 (0.2 mL/kg/hr)] Out: 1911 (26.4 mL/kg) [Urine:1600 (0.9 mL/kg/hr); Drainage:290] Net: -771 Weight: 72.3 kg Physical Exam: General: resting bed comfortably, NAD HEENT: normocephalic, GEOLOGICAL ENGINEERING TEACHER shunt catheter externalized at level of clavicle, gauze overlying site, clean CV: Regular rate, normal sinus rhythm on telemetry Pulm: satting well on RA, chest rise symmetric, no increased WOB Abdomen: abdomen soft, minimally tender. midline incision well approximated with lorna. RLQ urostomy with urine in bag, LLQ TOD drain with serosanguinous output. MSK: no peripheral edema, moving all 4 extremities purposefully NEURO: GCS 15, no focal deficits LABORATORY RESULTS (LAST 24 HOURS) CBC/PT/INR WBC RBC Hgb Hct MCV RDW Plt PT aPTT INR 07/01/23 010 11.4 2.70 8.0 24.2 90 15.4 185 Basic Metabolic Panel Na K Cl CO2 Gap Glu BUN Cr Ca Mg PO4 07/01/23 1328 143 3.5 104 28 15 158 14 0.45 8.0 07/01/23 0108 3.1 Comment: Note updated reference ranges. 07/01/23107 1.9 Comment: Note updated reference ranges. 07/01/23107 144 2.9 106 31 10 136 14 0.44 8.1 Arterial Blood Gases None IMAGING RESULTS - Last 24 hours (PERSONALLY REVIEWED) No new imaging this morning DIAGNOSIS & PLAN Diagnoses: Bowel ischemia 2/2 small bowel closed loop obstruction s/p ex-lap, ileocecectomy, primary ileocolicanastomosis Bilateral ureteral transection to detorse bowel s/p ureteral reimplantation (urology) GEOLOGICAL ENGINEERING TEACHER shunt externalization (NSGY) Lactic acidosis (resolved) Assessment: 58F with hx bladder cancer s/p cystectomy and ileal conduit in 2020 ([facility]) now presenting with si/sx concerning for small bowel obstruction, possibly secondary to closed loop. Lactic acidosis normalized however patient's gastric and bowel distention growing. NGT placed with somerelief on 06/25. Worsening leukocytosis 06/26, to OR for ex-lap, found to have necrotic bowel now s/pileocecectomy, primary ileocolic anastomosis and unavoidable bilateral ureteral transection at insertion into neobladder/conduit in the process of detorsing bowel s/p ureteral reimplantation by urology. 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 Patient remains in SICU for EVD management, remains stable, now with return of bowel function. Plan - GEOLOGICAL ENGINEERING TEACHER shunt and EVD management per neurosurgery. Awaiting CSF culture results. - Appreciate urology recs: maintain TOD drain, monitor urostomy outputs. - Regular diet - No activity restrictions - 4d broad spectrum abx for necrotic bowel (Zosyn, end 06/30) - Remainder per SICU - Appreciate SICU care Plan of care discussed with attending Surgeon, Dr. Libia Mcgarry MD PGY1 Emergency General Surgery Team Consult pager: [phone] Floor pager: [phone] * Isaías Hardin MD - 07/01/2023 6:44 AM EDT Images from the original note were not included. [facility] NEUROSURGERY DAILY PROGRESS NOTE SUBJECTIVE: NAEO. EVD draining with no issues overnight. OBJECTIVE: Vitals: Vital sign ranges over the past 24 hours (retrieved 07/01/2023 at 6:44 AM): Tmax (24 hours): 98.5 F (36.9 C) Pulse Av.9 Min: 75 Max: 94 Systolic (24hrs), Av , Min:120 , Max:184 Diastolic (24hrs), Av, Min:52, Max:75 MAP (mmHg) Av.5 mmHg Min: 73 mmHg Max: 108 mmHg Resp Av.4 Min: 12 Max: 23 SpO2 Av % Min: 94 % Max: 100 % In: 1345 (18.6 mL/kg) [P.O.:745; I.V.:600 (0.3 mL/kg/hr)] Out: 3450 (47.7 mL/kg) [Urine:3135 (1.8 mL/kg/hr); Drainage:220] Net: -2104 Weight: 72.3 kg Medications: potassium chloride 40 mEq 2x Daily magnesium sulfate 2,000 mg One Time Dose potassium chloride SA 40 mEq One Time Dose insulin glargine 35 Units BID metoprolol 100 mg Daily enoxaparin 50 mg 2x Daily hydrophilic wound dressing 2x Daily Posaconazole 300 mg Daily insulin lispro 3-18 Units 4x Daily PC & HS piperacillin/tazobactam 4.5 g Every 8 hours ondansetron 4 mg Q6H PRN albuterol 2.5 mg Q6H PRN labetalol 20 mg Q6H PRN hydrALAZINE 10 mg Q6H PRN oxyCODONE 5 mg Q4H PRN oxyCODONE 10 mg Q4H PRN acetaminophen 650 mg Q4H PRN dextrose iv for hypoglycemia orderable 125 mL PRN Or glucagon 1 mg PRN Or dextrose 15 g of glucose PRN Or dextrose 30 g of glucose PRN Labs: CBC/PT/INR WBC RBC Hgb Hct MCV RDW Plt PT aPTT INR 07/01/23107 11.4 2.70 8.0 24.2 90 15.4 185 06/30/23543 10.3 2.71 8.1 24.4 90 16.3 150 06/29/23356 10.6 2.97 9.0 26.5 89 16.4 149 WBC/Diff None Basic Metabolic Panel Na K Cl CO2 Gap Glu BUN Cr Ca Mg PO4 07/01/23107 3.1 Comment: Note updated reference ranges. 07/01/23107 1.9 Comment: Note updated reference ranges. 07/01/23107 144 2.9 106 31 10 136 14 0.44 8.1 06/30/2344 151 3.1 112 30 12 128 15 0.44 7.8 06/30/2344 2.4 Comment: Note updated reference ranges. 06/30/23543 1.7 Comment: Note updated reference ranges. 06/29/23 1304 153 5.8 116 27 16 309 24 0.59 8.0 06/29/237 2.3 Comment: Note updated reference ranges. 03/15/24 0357 1.9 Comment: Note updated reference ranges. 06/29/23 0357 153 3.5 120 25 12 247 30 0.70 8.4 Hepatic/Biliary/Pancreas T Prot Albumin D Bili T Bili Alk Phos ALT AST Amylase Lipase 06/30/23 0544 4.9 2.9 0.31 1.5 60 12 7 Cardiac None Arterial Blood Gases None Fingerstick Glucose Glucose 06/30/23 2127 250 06/30/23 1831 199 06/30/23 1306 134 06/30/23 0814 114 CSF Culture CSF culture 06/28/23 1508 No growth to date, culture reincubated [P] [P] - Preliminary Result Urine Culture Urine culture 06/25/23 1508 Positive Culture Report >100,000 CFU/ml Escherichia coli >100,000 CFU/ml Providencia rettgeri Pyogen Culture None Blood Culture None Sputum Culture None Physical Exam: Awake, alert Ox3 PERRL EOMI Face symmetric, tongue midline BU 5/5, no drift RLE 5/5 LLE with fracture/splint, wiggles toes Sensation intact to light touch Dressing at clavicle c/d/I Shunt patent A: Pt is a 58 year old year old female PMH of T1DM cb/ DKA, urothelial carcinoma of the bladder s/pradical cystectomy and ileal conduit c/b SBO (Dec 2021), HTN, chronic sinusitis, asthma, persistent encephalopathy and hydrocephalus 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 NSGY consulted by ACS in setting of patient requiring surgical intervention for SBO and need for possibleOR availability to externalize VPS. P: -SICU under EGS -Keep EVD open at 0 at level of the clavicle. Will consider clamp trial on 07/01. -no need to tranduce ICP's -abx per general surgery -appreciate ID consult - please comment on fungal meningitis as approaching end of antifungal duration -PT/OT -CSF studies unremarkable. Culture NGTD. -NSGY to follow Isaías Hardin MD Neurological Surgery, PGY-2 Service Pager: [phone] 07/01/2023 - 6:44 AM * Jory Jaeger MD - 06/30/2023 9:39 AM EDT Images from the original note were not included. GENERAL INFORMATION TRAUMA ICU - STAFF NOTE Patient seen and examined on 06/30/2023 Patient Name: Chikis Tobar Admission Date: 06/25/2023 INTERVAL HISTORY/EVENTS Background: Chikis Tobar is a 58 year old female presenting to SICU POD #0 s/p externalization of GEOLOGICAL ENGINEERING TEACHER shunt,EVD, exploratory laparotomy, bilateral ureteroileal reimplant, uretroenterostomy, RONALD, bowel resection. Chikis Tobar is a 58 year old female with PMH of HTN, DM1 with DKA, Asthma, fungal meningitis and Bladder cancer s/p Cystectomy and ileal conduit in 2021. She presented on 06/24 with a small bowelobstruction and admitted to [facility]. Patient had elevated lactate on presentation in the setting of minimal abdominal tenderness, appropriately downtrending after fluid resuscitation. Patient had a benign abdominal exam, however given the increasing WBC count and imaging for SBO decision was made to take patient to operating room for exploratory laparotomy. Intraoperatively, ischemic bowel was encountered and resected. Complications included transection of ureters requiring intraoperative urology consult for reimplantation into ileal conduit. Given contamination of GEOLOGICAL ENGINEERING TEACHER shunt, neurosurgery was also consulted intraoperatively for externalization. Patient arrives to ICU in stable condition, breathing spontaneously. Requires EVD monitoring. High risk for clinical deterioration. Hospital Course: 06/24: admitted to [facility] for SBO 06/25: abdominal pain improved 3:13: N.G tube in place, pain controlled 06/27:post op day 1, EVD externalization, exlap and SBO with IC anastamosis and recon of urostomy 06/28: passing gas, nasograstric tube out 24 Hour Events: Drank 1.5 L of fluids, had emesis during the day, Told to cut back on drinking, no emesis since. Liquid BMs. Nausea has improved. PHYSICAL EXAM Vital Signs: Vital sign ranges over the past 24 hours (retrieved 06/30/2023 at 9:39 AM): Tmax (24 hours): 98.6 F (37 C) Pulse Av.4 Min: 78 Max: 97 Systolic (24hrs), Av , Min:151 , Max:182 Diastolic (24hrs), Av, Min:56, Max:75 MAP (mmHg) Av.3 mmHg Min: 83 mmHg Max: 102 mmHg Resp Av.1 Min: 12 Max: 23 SpO2 Av.5 % Min: 86 % Max: 99 % 24 Hour Input/Output In: 2211.7 (30.6 mL/kg) [P.O.:1050; I.V.:1161.7 (0.7 mL/kg/hr)] Out: 3874 (53.6 mL/kg) [Urine:3375 (1.9 mL/kg/hr); Drainage:395] Net: -1662.3 Weight: 72.3 kg Physical Exam: Constitutional: No distress. Lying in bed Neurological: No focal motor deficits. GCS of 15. GEOLOGICAL ENGINEERING TEACHER shunt externalized over right clavicle, clear CSF Cardiovascular: Regular rate and rhythm. Pulmonary: Clear to auscultation bilaterally. No wheezing, rhonchi or rales. Abdominal: Soft. Non-distended. Appropriately tender, midline incision c/d/I, covered by dressing, lorna in place. Left TOD drain with serosang output. Right ileal conduit with stents in place, copious yellow urine Musculoskeletal: No edema. LABORATORY RESULTS (LAST 24 HOURS) CBC/PT/INR WBC RBC Hgb Hct MCV RDW Plt PT aPTT INR 06/30/23 0544 10.3 2.71 8.1 24.4 90 16.3 150 06/29/23 0357 10.6 2.97 9.0 26.5 89 16.4 149 06/28/23242 11.9 2.81 8.2 24.9 89 16.7 137 06/27/232054 1.10 06/27/232054 10.9 2.84 8.7 25.9 91 16.1 128 06/27/23 1832 8.4 26.1 06/27/23 1727 9.4 29.0 06/27/23 1525 10.0 30.8 06/27/23 1431 9.7 30.0 Basic Metabolic Panel Na K Cl CO2 Gap Glu BUN Cr Ca Mg PO4 06/30/23543 151 3.1 112 30 12 128 15 0.44 7.8 06/30/23 0544 2.4 Comment: Note updated reference ranges. 06/30/2344 1.7 Comment: Note updated reference ranges. 06/29/23 1304 153 5.8 116 27 16 309 24 0.59 8.0 06/29/237 2.3 Comment: Note updated reference ranges. 06/29/23356 1.9 Comment: Note updated reference ranges. 06/29/23356 153 3.5 120 25 12 247 30 0.70 8.4 06/28/23242 2.6 Comment: Note updated reference ranges. 06/28/23242 2.5 Comment: Note updated reference ranges. 06/28/23242 149 4.0 118 19 16 240 40 1.03 7.9 06/27/232054 149 4.5 115 17 22 220 43 1.37 8.2 06/27/232054 4.1 Comment: Note updated reference ranges. 06/27/232054 2.5 Comment: Note updated reference ranges. 06/27/23 1832 178 06/27/23 1832 149 4.2 118 06/27/23 1727 170 06/27/23 1727 148 4.2 117 06/27/23 1525 141 06/27/23 1525 148 4.1 114 06/27/23 1431 140 06/27/23 1431 147 3.7 115 Arterial Blood Gases None IMAGING RESULTS (PERSONALLY REVIEWED) ASSESSMENT & PLAN Chikis Tobar is a 58 year old female with PMH of HTN, DM1 with hx of DKA, Asthma, hx of hydrocephalus with GEOLOGICAL ENGINEERING TEACHER shunt complicated by fungal meningitis and urothelial carcinoma of the bladder s/p radical cystectomy and ileal conduit (Apr 2021). [facility] with signs and symptomsconsistent with SBO. Pt was taken to the operatives suite on 06/26 for exploratory laparotomy, bowelresection, ileal conduit revision, and externalization of GEOLOGICAL ENGINEERING TEACHER shunt. Diagnosis: Small bowel obstruction Bowel ischemia Hydrocephalus with GEOLOGICAL ENGINEERING TEACHER shunt Type 1 Diabetes Iatrogenic injury to bilateral ureters Ureteral reimplantation, ileal conduit Hyperglycemia PMHx HTN, DM1, Asthma, hydrocephalus, fungal meningitis, urothelial carcinoma Plan Neurologic Analgesia: Tylenol 650mg q6hr, Oxycodone 5/10 prn - minimal pain, wean as able NSY consult -Shunt externalized at the clavicle during ACS case as detailed in procedure note -Patino system to remain at 0 cm H2O -No need to transduce ICPs or adjust the patino system for drainage -CSF pending studies per NSG -NSG to follow for re-internalization of shunt vs removal: likely will require clamp trial for several days - posaconazole 300 mg PO daily for antifungal ppx Respiratory Respiratory Automobile Washer Steam Protocol Bronchopulmonary Hygiene Incentive Spirometer No acute resp concerns Cardiovascular Monitor Vitals q4hrs Increase PO metoprolol XL from 50 BID to home dose of 100 mg BID Prn hydral and labetalol GI Diet: regular diet Holding BM due to copious liquid stools Monitor bms. If she continues to have diarrhea, will need to test for C diff Renal/ Measure I&O Daily BMP, Mg, Phos. Replace as needed (Maintain K >4, Phos >3, Mg >2). Hypokalemic, hypomagnesemic, hypophosphatemic. Urology following: -Maintain stents -Left-sided abd TOD drain, check Cr prior to d/c Stop daily lactate Endo Home insulin pump off Patient estimates total daily insulin at home at ~70units Increase from 30 units to 35 units of Lantus BID Sliding scale insulin ACHS Heme No indication for transfusion at this time. Daily CBC ID Zosyn for 4 days post-op (End: 06/30) Patient on meningitis prophylaxis outpatient with posaconazole 3000 mg PO MSK - Progressive mobility protocol PT/OT Prophylaxis: VTE - SCDs, Lovenox 50 BID, check antiXa level on 06/30 at 1am Tubes/Lines/Drain EVD Left abdominal TOD Ileal conduit Left arm PICC PIV x3 CODE status: Full Code DISPO: step down given need for EVD still Follow Up: EGS Urology Neurosurgery Jory Jaeger MD Division of Trauma, Critical Care, Nieves, and Emergency General Surgery Department of Surgery [facility] [phone] * Karsten Reza MD - 06/30/2023 9:14 AM EDT Images from the original note were not included. [facility] DIVISION OF ACUTE CARE SURGERY GENERAL INFORMATION EMERGENCY GENERAL SURGERY NOTE Patient Name: Chikis Tobar Admission Date: 06/25/2023 Patient seen and examined on 06/30/2023 INTERVAL HISTORY/EVENTS Background Narrative: Chikis Tobar is a 58 year old female with PMH of HTN, DM, Asthma, fungal meningitis and Bladdercancer s/p Cystectomy and ileal conduit in 2020. She is now presenting with small bowel obstruction. Patient had elevated lactate on presentation in the setting of minimal abdominal tenderness, appropriately downtrending after fluid resuscitation. Plan to Admit to EGS service on RNF. Hospital Course/Procedures: 06/24: admitted to EGS with concern for SBO possible closed loop 06/25: worsening abdominal pain. NGT placed. 06/26: leukocytosis. 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 Admittedto SICU post-operatively for EVD, neuro checks. 06/27: Improved symptomatically, no acute events 06/28: Passed gas. NGT removed. Started on clears. Events in last 24 hours: NAEON. Tolerating clears. Having a few loose bowel movements. In good spirits and expressing appreciation for all the care she is receiving from her multiple surgical teams. TOD 120 cc NGT 395 cc since OR PHYSICAL EXAM Vitals: Vital sign ranges over the past 24 hours (retrieved 06/30/2023 at 9:14 AM): Tmax (24 hours): 98.6 F (37 C) Pulse Av.4 Min: 78 Max: 97 Systolic (24hrs), Av , Min:151 , Max:182 Diastolic (24hrs), Av, Min:56, Max:75 MAP (mmHg) Av.3 mmHg Min: 83 mmHg Max: 102 mmHg Resp Av.1 Min: 12 Max: 23 SpO2 Av.5 % Min: 86 % Max: 99 % 24 Hour Input/Output In: 2211.7 (30.6 mL/kg) [P.O.:1050; I.V.:1161.7 (0.7 mL/kg/hr)] Out: 3874 (53.6 mL/kg) [Urine:3375 (1.9 mL/kg/hr); Drainage:395] Net: -1662.3 Weight: 72.3 kg Physical Exam: General: resting bed comfortably, no acute distress HEENT: normocephalic, atraumatic, GEOLOGICAL ENGINEERING TEACHER shunt catheter externalized at level of clavicle, gauze overlying site, clean CV: Regular rate, normal sinus rhythm on telemetry Pulm: satting well on RA, chest rise symmetric, no increased WOB Abdomen: abdomen remains soft, minimally tender around incision appropriate. midline incision well approximated with lorna. RLQ urostomy with urine in bag, LLQ TOD drain with serosanguinous output. MSK: no peripheral edema, moving all 4 extremities NEURO: GCS 15, no focal deficits LABORATORY RESULTS (LAST 24 HOURS) CBC/PT/INR WBC RBC Hgb Hct MCV RDW Plt PT aPTT INR 06/30/23 0544 10.3 2.71 8.1 24.4 90 16.3 150 Basic Metabolic Panel Na K Cl CO2 Gap Glu BUN Cr Ca Mg PO4 06/30/23 0544 151 3.1 112 30 12 128 15 0.44 7.8 06/30/23 0544 2.4 Comment: Note updated reference ranges. 06/30/23 0544 1.7 Comment: Note updated reference ranges. 06/29/23 1304 153 5.8 116 27 16 309 24 0.59 8.0 Arterial Blood Gases None IMAGING RESULTS - Last 24 hours (PERSONALLY REVIEWED) No new imaging this morning DIAGNOSIS & PLAN Diagnoses: Bowel ischemia 2/2 small bowel closed loop obstruction s/p ex-lap, ileocecectomy, primary ileocolicanastomosis Bilateral ureteral transection to detorse bowel s/p ureteral reimplantation (urology) GEOLOGICAL ENGINEERING TEACHER shunt externalization (NSGY) Lactic acidosis (resolved) Assessment: 58F with hx bladder cancer s/p cystectomy and ileal conduit in 2020 ([facility]) now presenting with si/sx concerning for small bowel obstruction, possibly secondary to closed loop. Lactic acidosis normalized however patient's gastric and bowel distention growing. NGT placed with somerelief on 06/25. Worsening leukocytosis 06/26, to OR for ex-lap, found to have necrotic bowel now s/pileocecectomy, primary ileocolic anastomosis and unavoidable bilateral ureteral transection at insertion into neobladder/conduit in the process of detorsing bowel s/p ureteral reimplantation by urology. 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 Patient remains in SICU for EVD management, remains stable, now with return of bowel function. Plan - GEOLOGICAL ENGINEERING TEACHER shunt and EVD management per neurosurgery. Awaiting CSF culture results. - Appreciate urology recs: maintain TOD drain, monitor urostomy outputs. - Regular diet - 4d broad spectrum abx for necrotic bowel (Zosyn, end 06/30) - Remainder per SICU Plan of care discussed with attending Surgeon, Dr. Libia Ohara MD PGY-4 Surgery Acute Care Surgery Chief Resident Department of Surgery [facility] [phone] ACS Consults [phone] ACS Floor Patients EGS/TRAUMA/ICU STAFF NOTE: I saw and evaluated the patient. I personally obtained the gordon and critical portions of the historyand physical exam. I reviewed the provider's documentation and discussed the patient with the provider. I agree with the provider's medical decision making as documented in the provider's note. I pers onally reviewed any images obtained in the last 24 hours of evaluation. Additional findings, impression, and plan: none Karsten Reza MD Emergency General Surgery Surgical Critical Care Trauma Surgery Pager: [phone] * Val Lopez MD - 06/30/2023 8:53 AM EDT Images from the original note were not included. UROLOGY PROGRESS NOTE Subjective: Has had several liquid BMs. NGT removed yesterday. No abdominal pain at rest. Physical Exam: Vital sign ranges over the past 24 hours (retrieved 06/30/2023 at 8:53 AM): Tmax (24 hours): 98.6 F (37 C) Pulse Av.5 Min: 78 Max: 97 Systolic (24hrs), Av , Min:151 , Max:182 Diastolic (24hrs), Av, Min:56, Max:75 MAP (mmHg) Av mmHg Min: 83 mmHg Max: 102 mmHg Resp Av.1 Min: 12 Max: 23 SpO2 Av.5 % Min: 86 % Max: 99 % Gen: Alert, well developed, lying in bed HEENT: moist mucous membranes CV: RRR Pulm: Non labored on RA ABD: Soft, mildly distended, appropriately tender to palpation. No guarding/rebound. Midline incision w/ minimal strikethrough on dressing, TOD w/ ss output : stoma pink with 2 ureteral stents (L at an angle), urine clear yellow Neuro: No focal deficits, Ox3, appropriate Ext: no edema, warm and dry Psych: appropriate mood and behavior Ins and Outs: In: 2211.7 (30.6 mL/kg) [P.O.:1050; I.V.:1161.7 (0.7 mL/kg/hr)] Out: 3874 (53.6 mL/kg) [Urine:3375 (1.9 mL/kg/hr); Drainage:395] Net: -1662.3 Weight: 72.3 kg Date 06/30/23 0700 - 07/01/23 0659 Shift 4361-1245 2916-6523 1560-1483 24 Hour Total INTAKE I.V.(mL/kg/hr) 100 100 Shift Total(mL/kg) 100(1.4) 100(1.4) OUTPUT Urine(mL/kg/hr) 110 110 Other 12 12 Shift Total(mL/kg) 122(1.7) 122(1.7) Weight (kg) 72.3 72.3 72.3 72.3 Medications: Scheduled potassium phosphate 15 mmol Q2H X 2 DOSES enoxaparin 50 mg 2x Daily hydrophilic wound dressing 2x Daily Posaconazole 300 mg Daily insulin lispro 3-18 Units 4x Daily PC & HS insulin glargine 30 Units BID metoprolol 50 mg Daily piperacillin/tazobactam 4.5 g Every 8 hours PRN ondansetron 4 mg Q6H PRN albuterol 2.5 mg Q6H PRN labetalol 20 mg Q6H PRN hydrALAZINE 10 mg Q6H PRN oxyCODONE 5 mg Q4H PRN oxyCODONE 10 mg Q4H PRN acetaminophen 650 mg Q4H PRN dextrose iv for hypoglycemia orderable 125 mL PRN Or glucagon 1 mg PRN Or dextrose 15 g of glucose PRN Or dextrose 30 g of glucose PRN IV Labs: Basic Metabolic Panel Na K Cl CO2 Gap Glu BUN Cr Ca Mg PO4 06/30/23 0544 151 3.1 112 30 12 128 15 0.44 7.8 06/30/23 0544 2.4 Comment: Note updated reference ranges. 06/30/23 0544 1.7 Comment: Note updated reference ranges. 06/29/23 1304 153 5.8 116 27 16 309 24 0.59 8.0 06/29/23 0357 2.3 Comment: Note updated reference ranges. 06/29/23 0357 1.9 Comment: Note updated reference ranges. 06/29/23 0357 153 3.5 120 25 12 247 30 0.70 8.4 06/28/23 0243 2.6 Comment: Note updated reference ranges. 06/28/23 0243 2.5 Comment: Note updated reference ranges. 06/28/23242 149 4.0 118 19 16 240 40 1.03 7.9 06/27/232054 149 4.5 115 17 22 220 43 1.37 8.2 06/27/232054 4.1 Comment: Note updated reference ranges. 06/27/232054 2.5 Comment: Note updated reference ranges. 06/27/23 1832 178 06/27/23 1832 149 4.2 118 06/27/23 1727 170 06/27/23 1727 148 4.2 117 06/27/23 1525 141 06/27/23 1525 148 4.1 114 06/27/23 1431 140 06/27/23 1431 147 3.7 115 CBC/PT/INR WBC RBC Hgb Hct MCV RDW Plt PT aPTT INR 06/30/23 0544 10.3 2.71 8.1 24.4 90 16.3 150 06/29/23 0357 10.6 2.97 9.0 26.5 89 16.4 149 06/28/23 0243 11.9 2.81 8.2 24.9 89 16.7 137 06/27/23 2055 1.10 06/27/23 2055 10.9 2.84 8.7 25.9 91 16.1 128 06/27/23 1832 8.4 26.1 06/27/23 1727 9.4 29.0 06/27/23 1525 10.0 30.8 06/27/23 1431 9.7 30.0 WBC/Diff None Arterial Blood Gases None Hepatic/Biliary/Pancreas T Prot Albumin D Bili T Bili Alk Phos ALT AST Amylase Lipase 06/30/23 0544 4.9 2.9 0.31 1.5 60 12 7 Fingerstick Glucose (last 72 hours) (Last 10 results in the past 72 hours) Glucose 06/30/23 0814 114 06/29/23 2224 223 Comment: Follow Protocol
06/29/23 1759 245 06/29/23 1311 252 06/29/23 0630 298 Comment: Follow Protocol
06/29/23 0020 296 06/28/23 1842 348 06/28/23 1137 267 06/28/23 0612 278 06/27/23 2347 261 Cultures: Blood Culture None Urine Culture Urine culture 06/25/23 1508 Positive Culture Report >100,000 CFU/ml Escherichia coli >100,000 CFU/ml Providencia rettgeri Assessment/ Plan: Chikis Tobar is a 58 year old female with a history of micropapillary bladder ca s/p robotic RC/IC in 2021 at [facility], T1DM, 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 Presented to the ED 06/25 and was found to have a closed loop bowel obstruction. Now s/p XL, bowel resection w/ primary anastomosis, b/L ureteral reimplant on 06/26. - Maintain b/L ureteral stents - Strict I/Os, trend labs - Maintain TOD drain, will need TOD Cr prior to d/c - WOCN consult for stoma care and supplies - Will continue to follow Patient d/w attending Dr. Yeimy Lopez MD Urology PGY-5 Team Pager [phone] * Isaías Hardin MD - 06/30/2023 7:06 AM EDT Images from the original note were not included. [facility] NEUROSURGERY DAILY PROGRESS NOTE SUBJECTIVE: NAEO. EVD draining with no issues overnight. OBJECTIVE: Vitals: Vital sign ranges over the past 24 hours (retrieved 06/30/2023 at 7:06 AM): Tmax (24 hours): 98.6 F (37 C) Pulse Av.2 Min: 78 Max: 97 Systolic (24hrs), Av , Min:151 , Max:177 Diastolic (24hrs), Av, Min:56, Max:125 MAP (mmHg) Av.6 mmHg Min: 83 mmHg Max: 134 mmHg Resp Av.5 Min: 12 Max: 25 SpO2 Av.4 % Min: 86 % Max: 99 % In: 2211.7 (30.6 mL/kg) [P.O.:1050; I.V.:1161.7 (0.7 mL/kg/hr)] Out: 3764 (52.1 mL/kg) [Urine:3265 (1.9 mL/kg/hr); Drainage:395] Net: -1552.3 Weight: 72.3 kg Medications: potassium phosphate 15 mmol Q2H X 2 DOSES enoxaparin 50 mg 2x Daily hydrophilic wound dressing 2x Daily Posaconazole 300 mg Daily insulin lispro 3-18 Units 4x Daily PC & HS insulin glargine 30 Units BID metoprolol 50 mg Daily piperacillin/tazobactam 4.5 g Every 8 hours ondansetron 4 mg Q6H PRN albuterol 2.5 mg Q6H PRN labetalol 20 mg Q6H PRN hydrALAZINE 10 mg Q6H PRN oxyCODONE 5 mg Q4H PRN oxyCODONE 10 mg Q4H PRN acetaminophen 650 mg Q4H PRN dextrose iv for hypoglycemia orderable 125 mL PRN Or glucagon 1 mg PRN Or dextrose 15 g of glucose PRN Or dextrose 30 g of glucose PRN Labs: CBC/PT/INR WBC RBC Hgb Hct MCV RDW Plt PT aPTT INR 06/30/23 0544 10.3 2.71 8.1 24.4 90 16.3 150 06/29/23 0357 10.6 2.97 9.0 26.5 89 16.4 149 06/28/23 024 11.9 2.81 8.2 24.9 89 16.7 137 06/27/232054 1.10 06/27/232054 10.9 2.84 8.7 25.9 91 16.1 128 06/27/23 1832 8.4 26.1 06/27/23 1727 9.4 29.0 06/27/23 1525 10.0 30.8 06/27/23 1431 9.7 30.0 WBC/Diff None Basic Metabolic Panel Na K Cl CO2 Gap Glu BUN Cr Ca Mg PO4 06/30/23 0544 151 3.1 112 30 12 128 15 0.44 7.8 06/30/23 0544 2.4 Comment: Note updated reference ranges. 06/30/23 0544 1.7 Comment: Note updated reference ranges. 06/29/23 1304 153 5.8 116 27 16 309 24 0.59 8.0 06/29/23 0357 2.3 Comment: Note updated reference ranges. 06/29/23 0357 1.9 Comment: Note updated reference ranges. 06/29/23356 153 3.5 120 25 12 247 30 0.70 8.4 06/28/23 0243 2.6 Comment: Note updated reference ranges. 06/28/23242 2.5 Comment: Note updated reference ranges. 06/28/23242 149 4.0 118 19 16 240 40 1.03 7.9 06/27/232054 149 4.5 115 17 22 220 43 1.37 8.2 06/27/232054 4.1 Comment: Note updated reference ranges. 06/27/232054 2.5 Comment: Note updated reference ranges. 06/27/23 1832 178 06/27/23 1832 149 4.2 118 06/27/23 1727 170 06/27/23 1727 148 4.2 117 06/27/23 1525 141 06/27/23 1525 148 4.1 114 06/27/23 1431 140 06/27/23 1431 147 3.7 115 Hepatic/Biliary/Pancreas T Prot Albumin D Bili T Bili Alk Phos ALT AST Amylase Lipase 06/30/23 0544 4.9 2.9 0.31 1.5 60 12 7 Cardiac None Arterial Blood Gases None Fingerstick Glucose Glucose 06/29/23 2224 223 Comment: Follow Protocol
06/29/23 1759 245 06/29/23 1311 252 CSF Culture CSF culture 06/28/23 1508 No growth to date, culture reincubated [P] [P] - Preliminary Result Urine Culture Urine culture 06/25/23 1508 Positive Culture Report >100,000 CFU/ml Escherichia coli >100,000 CFU/ml Providencia rettgeri Pyogen Culture None Blood Culture None Sputum Culture None Physical Exam: Awake, alert Ox3 PERRL EOMI Face symmetric, tongue midline BU 5/5, no drift RLE 5/5 LLE with fracture/splint, wiggles toes Sensation intact to light touch Dressing at clavicle c/d/I Shunt patent A: Pt is a 58 year old year old female PMH of T1DM cb/ DKA, urothelial carcinoma of the bladder s/pradical cystectomy and ileal conduit c/b SBO (Dec 2021), HTN, chronic sinusitis, asthma, persistent encephalopathy and hydrocephalus 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 NSGY consulted by ACS in setting of patient requiring surgical intervention for SBO and need for possibleOR availability to externalize VPS. P: -SICU under EGS -Keep EVD open at 0 at level of the clavicle -no need to tranduce ICP's -abx per general surgery -appreciate ID consult - please comment on fungal meningitis as approaching end of antifungal duration -PT/OT -CSF studies unremarkable. Culture pending. Will consider clamp trial on 07/01 pending further clinical course -NSGY to follow Isaías Hardin MD Neurological Surgery, PGY-2 Service Pager: [phone] 06/30/2023 - 7:07 AM * Bobbi Meléndez MD - 06/29/2023 3:53 PM EDT Images from the original note were not included. GENERAL INFORMATION SURGICAL ICU - STAFF NOTE Patient seen and examined on 06/29/2023 Patient Name: Chikis Tobar Admission Date: 06/25/2023 INTERVAL HISTORY/EVENTS Background: Chikis Tobar is a 58 year old female presenting to SICU POD #0 s/p externalization of GEOLOGICAL ENGINEERING TEACHER shunt,EVD, exploratory laparotomy, bilateral ureteroileal reimplant, uretroenterostomy, RONALD, bowel resection. Chikis Tobar is a 58 year old female with PMH of HTN, DM1 with DKA, Asthma, fungal meningitis and Bladder cancer s/p Cystectomy and ileal conduit in 2021. She presented on 06/24 with a small bowelobstruction and admitted to [facility]. Patient had elevated lactate on presentation in the setting of minimal abdominal tenderness, appropriately downtrending after fluid resuscitation. Patient had a benign abdominal exam, however given the increasing WBC count and imaging for SBO decision was made to take patient to operating room for exploratory laparotomy. Intraoperatively, ischemic bowel was encountered and resected. Complications included transection of ureters requiring intraoperative urology consult for reimplantation into ileal conduit. Given contamination of GEOLOGICAL ENGINEERING TEACHER shunt, neurosurgery was also consulted intraoperatively for externalization. Patient arrives to ICU in stable condition, breathing spontaneously. Requires EVD monitoring. High risk for clinical deterioration. Hospital Course: 06/24: admitted to [facility] for SBO 06/25: abdominal pain improved 3:13: N.G tube in place, pain controlled 06/27:post op day 1, EVD externalization, exlap and SBO with IC anastamosis and recon of urostomy 06/28: passing gas, nasograstric tube out 24 Hour Events: NAEO. Passing gas, EVD with minimal output, urostomy clearing up. TOD serosanguinous PHYSICAL EXAM Vital Signs: Vital sign ranges over the past 24 hours (retrieved 06/29/2023 at 3:53 PM): Tmax (24 hours): 99.1 F (37.3 C) Pulse Av.6 Min: 78 Max: 98 Systolic (24hrs), Av , Min:157 , Max:176 Diastolic (24hrs), Av, Min:59, Max:125 MAP (mmHg) Av.2 mmHg Min: 88 mmHg Max: 134 mmHg Resp Av.6 Min: 13 Max: 31 SpO2 Av.6 % Min: 93 % Max: 99 % 24 Hour Input/Output In: 3178.3 (44 mL/kg) [P.O.:400; I.V.:2693.3 (1.6 mL/kg/hr)] Out: 5263 (72.8 mL/kg) [Urine:4039 (2.3 mL/kg/hr); Drainage:1175] Net: -2083.7 Weight: 72.3 kg PHYSICAL EXAM Constituational: No distress. Alert and responsive Cardiovascular: Regular rate and rhythm on tele Pulmonary: unlabored breathing on RA Abdominal: Soft. Moderately distended, midline incision with dressing in place, urine stoma pink/healthy with urine in the bag, TOD drain s/s Musculoskeletal: No edema. Neurological: Alert, awake, and oriented x 3. Motor and sensory grossly intact. LABORATORY RESULTS (LAST 24 HOURS) CBC/PT/INR WBC RBC Hgb Hct MCV RDW Plt PT aPTT INR 06/29/23356 10.6 2.97 9.0 26.5 89 16.4 149 Basic Metabolic Panel Na K Cl CO2 Gap Glu BUN Cr Ca Mg PO4 06/29/23 1304 153 5.8 116 27 16 309 24 0.59 8.0 06/29/23 0357 2.3 Comment: Note updated reference ranges. 06/29/23356 1.9 Comment: Note updated reference ranges. 06/29/23356 153 3.5 120 25 12 247 30 0.70 8.4 Arterial Blood Gases None Fingerstick Glucose Glucose 06/29/23 1311 252 06/29/23 0630 298 Comment: Follow Protocol
06/29/23 0020 296 06/28/23 1842 348 IMAGING RESULTS (PERSONALLY REVIEWED) No new imaging ASSESSMENT & PLAN Chikis Tobar is a 58 year old female with PMH of HTN, DM1 with hx of DKA, Asthma, hx of hydrocephalus with GEOLOGICAL ENGINEERING TEACHER shunt complicated by fungal meningitis and urothelial carcinoma of the bladder s/p radical cystectomy and ileal conduit (Apr 2021). [facility] with signs and symptomsconsistent with SBO. Pt was taken to the operatives suite on 06/26 for exploratory laparotomy, bowelresection, ileal conduit revision, and externalization of GEOLOGICAL ENGINEERING TEACHER shunt. Diagnosis: Small bowel obstruction Bowel ischemia Hydrocephalus with GEOLOGICAL ENGINEERING TEACHER shunt Type 1 Diabetes Ureteral reimplantation, ileal conduit PMHx HTN, DM1, Asthma, hydrocephalus, fungal meningitis, urothelial carcinoma Plan Neurologic Analgesia: Tylenol 650mg q6hr, Oxycodone 2.5/5 prn, dilaudid prn - minimal pain, wean as able NSY consult -Shunt externalized at the clavicle during ACS case as detailed in procedure note -Patino system to remain at 0 cm H2O -No need to transduce ICPs or adjust the patino system for drainage -CSF pending studies per NSG -NSG to follow for re-internalization of shunt vs removal - posaconazole for antifungal ppx Respiratory Respiratory Automobile Washer Steam Protocol Bronchopulmonary Hygiene Incentive Spirometer No acute resp concerns Cardiovascular Monitor Vitals q4hrs PO metoprolol XL at 50 BID Prn hydral and labetalol GI Diet: nasogastric tube out, clears Bowel regimen when taking solid food Monitor bms Renal/ Measure I&O Daily BMP, Mg, Phos. Replace as needed (Maintain K >4, Phos >3, Mg >2) Urology following: -Maintain stents -Drain Cr prior to d/c Endo Home insulin pump off Patient estimates total daily insulin at home at ~70units 30u Lantus BID Sliding scale insulin q6hr - increased today AC/at bedtime sugar checks Heme No indication for transfusion at this time. Daily CBC ID Zosyn for 4 days post-op (End: 06/30) Patient on meningitis prophylaxis outpatient with posaconazole, will consult ID for possible IV alternative/further recs Posaconazole 300 every day MSK - Progressive mobility protocol PT/OT Prophylaxis: VTE - SCDs, Lovenox 40 BID (Fxa 06/28 1300 low at 0.17 - increased dose to 50 mg BID CODE status: Full Code DISPO: step down given need for EVD still Follow Up: EGS Urology Neurosurgery Lam [place] DO Teaching Physician Note: I saw and evaluated the patient. I personally obtained the gordon and critical portions of the historyand physical exam. I reviewed the resident's documentation and discussed the patient with the resident. I agree with the resident's medical decision making as documented in the resident's note. Bobbi Meléndez MD * Chelsie Barbour RN - 06/29/2023 1:13 PM EDT Images from the original note were not included. Wound Ostomy Continence (WOC) Nursing Consult Reason for visit: Ostomy Care RN Assigned to Patient During Consult: Speedy Gorman RN. Assessment/Findings: Patient seen in the SICU for ostomy care. WOC Nursing able to assist with transferring patient backto bed. Patient is pleasant and accepting of care, expresses gratitude with staff. She is able to discuss her current pouching systems well with WOC Nursing and reports having no issues with leaks orwith obtaining supplies, no acute concerns. Pouch changed without issue. Patient reports feeling comfortably and confident with ostomy care at home, does not require any additional ostomy education from WOC Nursing at this time, but she was made aware that our team will continue to follow her whileshe is hospitalized for any ostomy concerns she may have. She reports being notified that her current DME company will no longer be able to provide her supplies and that she is looking for a new DME.Will provide info to patient. 06/29/23 1300 Wound 06/27/231938 Abdomen Surgical - Incision Wound Occurence Date/Wound Occurence Time: 06/27/231938 Wound Location: Abdomen Primary Wound Type: Surgical - Incision Wound Types: Surgical - Incision Wound Image Wound Bed Intact Surrounding Tissue/Wound Edge WNL Drainage Scant;Serosanguineous Dressing Dressing changed;Wound cleansed;ABD pad Closure Lorna Type of Stoma: ileal conduit Location: RLQ Pouching System Removed: Removed, from top to bottom, using adhesive remover wipes. Back of flange inspected to assess wear/fit. Circumferentially bloated Tubes/drains Present: stoma trujillo and ureteral stents present Stoma Measurement (inches): 1 rounded Mucosa: pink and moist Mucocutaneous Juncture: intact Peristomal Skin: clear and intact Abdominal Contour: rounded with concave depression circumferentially surrounding stoma Peristomal Tissue: soft Output: pink tinged urine coming from stoma trujillo, clear yellow urine coming from bilateral stents Protrusion: slightly budded, buds more with convexity Peristomal Skin Care: Peristomal skin cleansed using soap and water, then dried. Skin then dusted with stomahesive powder, excess powder dusted off. Pouching System Applied: Coloplast SenSura Catrachito (Medium, 08/21 -1 08/29 ) Deep Convex MAXI Cut to Fit Urostomy Pouch #[id number] with Brava moldable ring (4.2 mm) #[id number] and Brava U-shaped elastic barrier strips #[id number] Expected Wear Time: 3-4 days Education Provided: N/A Patient Response: N/A Recommend GI soft diet (when solid food is deemed medically appropriate) for 4-6 weeks post-operatively. Please consider consulting Nutrition for further education and reinforcement. Please encourage patient to read ostomy literature provided and to be hands-on with basic ostomy care (pouch emptying and tracking output as appropriate) Extra supplies were left at the bedside in a belongings bag marked with a bright green ostomy label. Please send with pt if/when transferred or discharged WOC team will continue to follow patient for ostomy care and education as appropriate. Total Time Spent with Patient: 40 minutes Plan for Next Visit: seal check versus pouch change Saturday 07/01 The pouching described above was selected by a Certified Ostomy Nurse, specifically for this patient. If an alternative pouch is used for this patient without proper fitting, the chance of the pouch leaking could increase significantly, leading to issues with raquel-stomal skin integrity and future po uching difficulties. Therefore, it is important to make every effort to maintain the appropriate pouching system (or one that is comparable) in order to maintain a successful and adequate seal. Chelsie Barbour MSN, RN, CWOCN * Val Lopez MD - 06/29/2023 9:04 AM EDT Images from the original note were not included. UROLOGY PROGRESS NOTE Subjective: Patient passing flatus this AM. Feels well overall. Physical Exam: Vital sign ranges over the past 24 hours (retrieved 06/29/2023 at 9:04 AM): Tmax (24 hours): 99.1 F (37.3 C) Pulse Av.2 Min: 80 Max: 98 Systolic (24hrs), Av , Min:157 , Max:175 Diastolic (24hrs), Av, Min:60, Max:78 MAP (mmHg) Av.9 mmHg Min: 88 mmHg Max: 104 mmHg Resp Av.9 Min: 17 Max: 31 SpO2 Av.6 % Min: 91 % Max: 95 % Gen: Alert, well developed, lying in bed HEENT: moist mucous membranes, NGT in place CV: RRR Pulm: Non labored on RA ABD: Soft, mildly distended, appropriately tender to palpation. No guarding/rebound. Midline incision w/ minimal strikethrough on dressing, TOD w/ ss output : stoma pink with 2 ureteral stents (L at an angle), urine clear yellow Neuro: No focal deficits, Ox3, appropriate Ext: no edema, warm and dry Psych: appropriate mood and behavior Ins and Outs: In: 2885 (39.9 mL/kg) [I.V.:2800 (1.6 mL/kg/hr)] Out: 5357 (74.1 mL/kg) [Urine:3899 (2.2 mL/kg/hr); Drainage:1400] Net: -2472 Weight: 72.3 kg Date 06/29/23 0700 - 06/30/23 0659 Shift [id number] 3564-3237 0615-1103 24 Hour Total INTAKE Shift Total(mL/kg) OUTPUT Urine(mL/kg/hr) 425 425 Drainage 25 25 Other 7 7 Shift Total(mL/kg) 457(6.3) 457(6.3) Weight (kg) 72.3 72.3 72.3 72.3 Medications: Scheduled insulin lispro 3-18 Units Every 6 hours potassium phosphate 15 mmol Q2H X 2 DOSES insulin glargine 20 Units BID enoxaparin 40 mg 2x Daily piperacillin/tazobactam 4.5 g Every 8 hours metoprolol 5 mg Every 4 hours hydrophilic wound dressing 2x Daily PRN labetalol 20 mg Q6H PRN hydrALAZINE 10 mg Q6H PRN oxyCODONE 5 mg Q4H PRN oxyCODONE 10 mg Q4H PRN acetaminophen 650 mg Q4H PRN HYDROmorphone HCl PF 0.4 mg Q4H PRN ondansetron 4 mg Q6H PRN dextrose iv for hypoglycemia orderable 125 mL PRN Or glucagon 1 mg PRN Or dextrose 15 g of glucose PRN Or dextrose 30 g of glucose PRN IV lactated ringers 100 mL/hr at 06/29/23 0850 Labs: Basic Metabolic Panel Na K Cl CO2 Gap Glu BUN Cr Ca Mg PO4 06/29/23 0357 2.3 Comment: Note updated reference ranges. 06/29/23 035 1.9 Comment: Note updated reference ranges. 06/29/23356 153 3.5 120 25 12 247 30 0.70 8.4 06/28/23 0243 2.6 Comment: Note updated reference ranges. 06/28/23242 2.5 Comment: Note updated reference ranges. 06/28/23242 149 4.0 118 19 16 240 40 1.03 7.9 06/27/232054 149 4.5 115 17 22 220 43 1.37 8.2 06/27/232054 4.1 Comment: Note updated reference ranges. 06/27/232054 2.5 Comment: Note updated reference ranges. 06/27/23 1832 178 06/27/23 1832 149 4.2 118 06/27/23 1727 170 06/27/23 1727 148 4.2 117 06/27/23 1525 141 06/27/23 1525 148 4.1 114 06/27/23 1431 140 06/27/23 1431 147 3.7 115 06/27/23 0049 2.6 Comment: Note updated reference ranges. 06/27/2348 145 4.2 114 20 15 54 44 1.70 8.0 06/27/23 0049 3.6 Comment: Note updated reference ranges. CBC/PT/INR WBC RBC Hgb Hct MCV RDW Plt PT aPTT INR 06/29/237 10.6 2.97 9.0 26.5 89 16.4 149 06/28/23 0243 11.9 2.81 8.2 24.9 89 16.7 137 03/13/24 2055 1.10 06/27/232054 10.9 2.84 8.7 25.9 91 16.1 128 06/27/23 1832 8.4 26.1 06/27/23 1727 9.4 29.0 06/27/23 1525 10.0 30.8 06/27/23 1431 9.7 30.0 06/27/23 0049 16.8 3.43 10.3 30.1 88 16.3 140 WBC/Diff None Arterial Blood Gases None Hepatic/Biliary/Pancreas None Fingerstick Glucose (last 72 hours) (Last 10 results in the past 72 hours) Glucose 06/29/23 0630 298 Comment: Follow Protocol
06/29/23 0020 296 06/28/23 1842 348 06/28/23 1137 267 06/28/23 0612 278 06/27/23 2347 261 06/27/23 1211 116 06/27/23 1021 110 06/27/23 0910 124 06/27/23 0842 61 Cultures: Blood Culture None Urine Culture Urine culture 06/25/23 1508 Positive Culture Report >100,000 CFU/ml Escherichia coli >100,000 CFU/ml Providencia rettgeri Assessment/ Plan: Chikis Tobar is a 58 year old female with a history of micropapillary bladder ca s/p robotic RC/IC in 2021 at OSH, T1DM, 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 Presented to the ED 06/25 and was found to have a closed loop bowel obstruction. Now s/p XL, bowel resection w/ primary anastomosis, b/L ureteral reimplant on 06/26. - Maintain b/L ureteral stents - Strict I/Os, trend labs - Maintain TOD drain, will need TOD Cr prior to d/c - WOCN consult for stoma care and supplies - Will continue to follow Patient d/w attending Dr. Yeimy Lopez MD Urology PGY-5 Team Pager [phone] * Isaías Hardin MD - 06/29/2023 6:43 AM EDT Images from the original note were not included. [facility] NEUROSURGERY DAILY PROGRESS NOTE SUBJECTIVE: NAEO. EVD draining with no issues overnight. Initial CSF studies shows Pr 9/Glu 174/0 RBC/1 TNC; stain negative. OBJECTIVE: Vitals: Vital sign ranges over the past 24 hours (retrieved 06/29/2023 at 6:43 AM): Tmax (24 hours): 99.1 F (37.3 C) Pulse Av.7 Min: 80 Max: 100 Systolic (24hrs), Av , Min:157 , Max:175 Diastolic (24hrs), Av, Min:60, Max:78 MAP (mmHg) Av.9 mmHg Min: 88 mmHg Max: 104 mmHg Resp Av.4 Min: 16 Max: 31 SpO2 Av.5 % Min: 91 % Max: 95 % In: 3950 (54.6 mL/kg) [I.V.:3900 (2.2 mL/kg/hr)] Out: 4558 (63 mL/kg) [Urine:3299 (1.9 mL/kg/hr); Drainage:1205] Net: -608 Weight: 72.3 kg Medications: insulin lispro 2-20 Units Every 6 hours potassium phosphate 15 mmol Q2H X 2 DOSES insulin glargine 20 Units BID enoxaparin 40 mg 2x Daily piperacillin/tazobactam 4.5 g Every 8 hours metoprolol 5 mg Every 4 hours hydrophilic wound dressing 2x Daily lactated ringers 100 mL/hr at 06/29/23 0600 labetalol 20 mg Q6H PRN hydrALAZINE 10 mg Q6H PRN oxyCODONE 5 mg Q4H PRN oxyCODONE 10 mg Q4H PRN acetaminophen 650 mg Q4H PRN HYDROmorphone HCl PF 0.4 mg Q4H PRN ondansetron 4 mg Q6H PRN dextrose iv for hypoglycemia orderable 125 mL PRN Or glucagon 1 mg PRN Or dextrose 15 g of glucose PRN Or dextrose 30 g of glucose PRN Labs: CBC/PT/INR WBC RBC Hgb Hct MCV RDW Plt PT aPTT INR 06/29/23 0357 10.6 2.97 9.0 26.5 89 16.4 149 06/28/23 0243 11.9 2.81 8.2 24.9 89 16.7 137 06/27/232054 1.10 06/27/232054 10.9 2.84 8.7 25.9 91 16.1 128 06/27/23 1832 8.4 26.1 06/27/23 1727 9.4 29.0 06/27/23 1525 10.0 30.8 06/27/23 1431 9.7 30.0 06/27/23 0049 16.8 3.43 10.3 30.1 88 16.3 140 WBC/Diff None Basic Metabolic Panel Na K Cl CO2 Gap Glu BUN Cr Ca Mg PO4 06/29/23 035 2.3 Comment: Note updated reference ranges. 06/29/23356 1.9 Comment: Note updated reference ranges. 06/29/23356 153 3.5 120 25 12 247 30 0.70 8.4 06/28/23 0243 2.6 Comment: Note updated reference ranges. 06/28/23242 2.5 Comment: Note updated reference ranges. 06/28/23242 149 4.0 118 19 16 240 40 1.03 7.9 06/27/232054 149 4.5 115 17 22 220 43 1.37 8.2 06/27/232054 4.1 Comment: Note updated reference ranges. 06/27/232054 2.5 Comment: Note updated reference ranges. 06/27/23 1832 178 06/27/23 1832 149 4.2 118 06/27/23 1727 170 06/27/23 1727 148 4.2 117 06/27/23 1525 141 06/27/23 1525 148 4.1 114 06/27/23 1431 140 06/27/23 1431 147 3.7 115 06/27/23 0049 2.6 Comment: Note updated reference ranges. 06/27/239 145 4.2 114 20 15 54 44 1.70 8.0 06/27/23 0049 3.6 Comment: Note updated reference ranges. Hepatic/Biliary/Pancreas None Cardiac None Arterial Blood Gases None Fingerstick Glucose Glucose 06/29/23 0630 298 Comment: Follow Protocol
06/29/23 0020 296 06/28/23 1842 348 06/28/23 1137 267 CSF Culture None Urine Culture Urine culture 06/25/23 1508 Positive Culture Report >100,000 CFU/ml Escherichia coli >100,000 CFU/ml Providencia rettgeri Pyogen Culture None Blood Culture None Sputum Culture None Physical Exam: Awake, alert Ox3 PERRL EOMI Face symmetric, tongue midline BU 5/5, no drift RLE 5/5 LLE with fracture/splint, wiggles toes Sensation intact to light touch Dressing at clavicle c/d/I Shunt patent A: Pt is a 58 year old year old female PMH of T1DM cb/ DKA, urothelial carcinoma of the bladder s/pradical cystectomy and ileal conduit c/b SBO (Dec 2021), HTN, chronic sinusitis, asthma, persistent encephalopathy and hydrocephalus 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 NSGY consulted by ACS in setting of patient requiring surgical intervention for SBO and need for possibleOR availability to externalize VPS. P: -SICU under EGS -Keep EVD open at 0 at level of the clavicle - will discuss shunt plan today -no need to tranduce ICP's -abx per general surgery -recommend ID consult to comment on fungal meningitis as approaching end of antifungal duration -PT/OT -CSF studies unremarkable. Culture pending. Will discuss possible clamp of shunt today. -NSGY to follow Isaías Hardin MD Neurological Surgery, PGY-2 Service Pager: [phone] 06/29/2023 - 6:43 AM * Tati Wilks MD - 06/28/2023 9:26 AM EDT Images from the original note were not included. GENERAL INFORMATION SURGICAL ICU - STAFF NOTE Patient seen and examined on 06/28/2023 Patient Name: Chikis Tobar Admission Date: 06/25/2023 INTERVAL HISTORY/EVENTS Background: Chikis Tobar is a 58 year old female presenting to SICU POD #0 s/p externalization of GEOLOGICAL ENGINEERING TEACHER shunt,EVD, exploratory laparotomy, bilateral ureteroileal reimplant, uretroenterostomy, RONALD, bowel resection. Chikis Tobar is a 58 year old female with PMH of HTN, DM1 with DKA, Asthma, fungal meningitis and Bladder cancer s/p Cystectomy and ileal conduit in 2021. She presented on 06/24 with a small bowelobstruction and admitted to [facility]. Patient had elevated lactate on presentation in the setting of minimal abdominal tenderness, appropriately downtrending after fluid resuscitation. Patient had a benign abdominal exam, however given the increasing WBC count and imaging for SBO decision was made to take patient to operating room for exploratory laparotomy. Intraoperatively, ischemic bowel was encountered and resected. Complications included transection of ureters requiring intraoperative urology consult for reimplantation into ileal conduit. Given contamination of GEOLOGICAL ENGINEERING TEACHER shunt, neurosurgery was also consulted intraoperatively for externalization. Patient arrives to ICU in stable condition, breathing spontaneously. Requires EVD monitoring. High risk for clinical deterioration. Hospital Course: 06/24: admitted to EGS for SBO 06/25: abdominal pain improved 24 Hour Events: OR with EGS, Urology, NSG. SICU for monitoring post op. Pain controlled, awake alert. Bilious output from nasogastric tube. UO: 1465 Drains: TOD: 200 PHYSICAL EXAM Vital Signs: Vital sign ranges over the past 24 hours (retrieved 06/28/2023 at 9:26 AM): Tmax (24 hours): 99.3 F (37.4 C) Pulse Av.5 Min: 96 Max: 117 Systolic (24hrs), Av , Min:143 , Max:172 Diastolic (24hrs), Av, Min:54, Max:68 MAP (mmHg) Av.1 mmHg Min: 80 mmHg Max: 98 mmHg Resp Av.2 Min: 14 Max: 21 SpO2 Av.3 % Min: 91 % Max: 97 % 24 Hour Input/Output In: 5300 (73.3 mL/kg) [I.V.:5300 (3.1 mL/kg/hr)] Out: 2200 (30.4 mL/kg) [Urine:1465 (0.8 mL/kg/hr); Drainage:600] Net: 3100 Weight: 72.3 kg PHYSICAL EXAM Constituational: No distress. Cardiovascular: Regular rate and rhythm. Pulmonary: Clear to auscultation bilaterally. No wheezing, rhonchi or rales. Abdominal: Soft. Moderately distended, midline incision with dressing in place, urine stoma pink/healthy with urine in the bag, TOD drain s/s Musculoskeletal: No edema. Neurological: Alert, awake, and oriented x 3. Motor and sensory grossly intact. LABORATORY RESULTS (LAST 24 HOURS) CBC/PT/INR WBC RBC Hgb Hct MCV RDW Plt PT aPTT INR 06/28/23 0243 11.9 2.81 8.2 24.9 89 16.7 137 06/27/232054 1.10 06/27/232054 10.9 2.84 8.7 25.9 91 16.1 128 06/27/23 1832 8.4 26.1 06/27/23 1727 9.4 29.0 06/27/23 1525 10.0 30.8 06/27/23 1431 9.7 30.0 Basic Metabolic Panel Na K Cl CO2 Gap Glu BUN Cr Ca Mg PO4 06/28/23242 2.6 Comment: Note updated reference ranges. 06/28/23242 2.5 Comment: Note updated reference ranges. 06/28/23242 149 4.0 118 19 16 240 40 1.03 7.9 06/27/232054 149 4.5 115 17 22 220 43 1.37 8.2 06/27/232054 4.1 Comment: Note updated reference ranges. 06/27/232054 2.5 Comment: Note updated reference ranges. 06/27/23 1832 178 06/27/23 1832 149 4.2 118 06/27/23 1727 170 06/27/23 1727 148 4.2 117 06/27/23 1525 141 06/27/23 1525 148 4.1 114 06/27/23 1431 140 06/27/23 1431 147 3.7 115 Arterial Blood Gases T Site Mode LPM FIO2 pH pCO2 pO2 Sat Base Ex HCO3- A-a 06/27/23 1832 18 06/27/23 1832 7.343 33.0 135 97.8 -7.0 18 06/27/23 1727 19 06/27/23 1727 7.318 38.3 157 98.0 -6.0 19 06/27/23 1525 23 06/27/23 1525 7.335 43.4 109 96.7 -2.7 23 06/27/23 1431 22 06/27/23 1431 7.385 38.1 154 99.0 -1.9 22 Fingerstick Glucose Glucose 06/28/23 0612 278 06/27/23 2347 261 06/27/23 1211 116 06/27/23 1021 110 IMAGING RESULTS (PERSONALLY REVIEWED) No new imaging ASSESSMENT & PLAN Chikis Tobar is a 58 year old female with PMH of HTN, DM1 with hx of DKA, Asthma, hx of hydrocephalus with GEOLOGICAL ENGINEERING TEACHER shunt complicated by fungal meningitis and urothelial carcinoma of the bladder s/p radical cystectomy and ileal conduit (Apr 2021). [facility] with signs and symptomsconsistent with SBO. Pt was taken to the operatives suite on 06/26 for exploratory laparotomy, bowelresection, ileal conduit revision, and externalization of ileal conduit. Diagnosis: Small bowel obstruction Bowel ischemia Hydrocephalus with GEOLOGICAL ENGINEERING TEACHER shunt Type 1 Diabetes Ureteral reimplantation, ileal conduit PMHx HTN, DM1, Asthma, hydrocephalus, fungal meningitis, urothelial carcinoma Plan Neurologic Analgesia: Tylenol 650mg q6hr, Oxycodone 2.5/5 prn, NSY consult -Shunt externalized at the clavicle during ACS case as detailed in procedure note -Patino system to remain at 0 cm H2O -No need to transduce ICPs or adjust the patino system for drainage -CSF pending studies per NSG -NSG to follow for re-internalization of shunt vs removal Respiratory Respiratory Automobile Washer Steam Protocol Bronchopulmonary Hygiene Incentive Spirometer No acute resp concerns Cardiovascular Monitor Vitals q4hrs IV Metop 5mg q4H will keep IV given uncertain gut absorption GI Diet: NPO, ok for very small volume ice chips No Bowel Regimen NGT LIWS Renal/ LR @ 100 cc/hr Measure I&O Daily BMP, Mg, Phos. Replace as needed (Maintain K >4, Phos >3, Mg >2) Urology following: -Maintain stents -Drain Cr prior to d/c Endo Home insulin pump off Patient estimates total daily insulin at home at ~70units Will start 20u Lantus BID Sliding scale insulin q6hr Heme No indication for transfusion at this time. Daily CBC ID Zosyn for 4 days post-op (End: 06/30) Patient on meningitis prophylaxis outpatient with posaconazole, will consult ID for possible IV alternative/further recs MSK - Progressive mobility protocol PT/OT Prophylaxis: VTE - SCDs, Lovenox 40 BID (Fxa 06/28 1300) CODE status: Full Code DISPO: SICU Follow Up: EGS Urology Neurosurgery Benitez Gaviria MD Surgical Critical Care Fellow Teaching Physician Note: Patient seen and evaluated on 06/28/2023 I saw and evaluated the patient. I personally obtained the gordon and critical portions of the historyand physical exam, reviewed labs and CT scans/xrays if obtained. I reviewed the resident's documentation and discussed the patient with the resident. I agree with the resident's medical decision making as documented in the resident's note. Tati Wilks MD, FACS Division of Trauma, Critical Care, Nieves, and Emergency General Surgery Department of Surgery [facility] Pager [phone] * Val Lopez MD - 06/28/2023 8:54 AM EDT Images from the original note were not included. UROLOGY PROGRESS NOTE Subjective: No significant events overnight. Patient reports pain significantly improved. Physical Exam: Vital sign ranges over the past 24 hours (retrieved 06/28/2023 at 8:54 AM): Tmax (24 hours): 99.3 F (37.4 C) Pulse Av.5 Min: 96 Max: 117 Systolic (24hrs), Av , Min:143 , Max:172 Diastolic (24hrs), Av, Min:54, Max:68 MAP (mmHg) Av.1 mmHg Min: 80 mmHg Max: 98 mmHg Resp Av.2 Min: 14 Max: 21 SpO2 Av.3 % Min: 91 % Max: 97 % Gen: Alert, well developed, lying in bed HEENT: moist mucous membranes, NGT in place CV: RRR Pulm: Non labored on RA ABD: Soft, mildly distended, appropriately tender to palpation. No guarding/rebound. Midline incision w/ minimal strikethrough on dressing, TOD w/ ss output : stoma pink with 2 ureteral stents (L at an angle), urine clear pink Neuro: No focal deficits, Ox3, appropriate Ext: no edema, warm and dry Psych: appropriate mood and behavior Ins and Outs: In: 5300 (73.3 mL/kg) [I.V.:5300 (3.1 mL/kg/hr)] Out: 2200 (30.4 mL/kg) [Urine:1465 (0.8 mL/kg/hr); Drainage:600] Net: 3100 Weight: 72.3 kg Date 06/28/23 0700 - 06/29/23 0659 Shift 4120-5478 3941-9484 2080-7441 24 Hour Total INTAKE I.V.(mL/kg/hr) 100 100 Shift Total(mL/kg) 100(1.4) 100(1.4) OUTPUT Urine(mL/kg/hr) 410 410 Drainage 325 325 Shift Total(mL/kg) 735(10.2) 735(10.2) Weight (kg) 72.3 72.3 72.3 72.3 Medications: Scheduled sodium phosphate 15 mmol Q2H X 2 DOSES piperacillin/tazobactam 4.5 g Every 8 hours metoprolol 5 mg Every 4 hours insulin glargine 4 Units At Bedtime insulin lispro 2-12 Units q6h hydrophilic wound dressing 2x Daily heparin (porcine) 5,000 Units Every 8 hours PRN oxyCODONE 5 mg Q4H PRN oxyCODONE 10 mg Q4H PRN acetaminophen 650 mg Q4H PRN HYDROmorphone HCl PF 0.4 mg Q4H PRN ondansetron 4 mg Q6H PRN dextrose iv for hypoglycemia orderable 125 mL PRN Or glucagon 1 mg PRN Or dextrose 15 g of glucose PRN Or dextrose 30 g of glucose PRN IV lactated ringers 100 mL/hr at 06/28/23 0700 Labs: Basic Metabolic Panel Na K Cl CO2 Gap Glu BUN Cr Ca Mg PO4 06/28/23242 2.6 Comment: Note updated reference ranges. 06/28/23242 2.5 Comment: Note updated reference ranges. 06/28/23242 149 4.0 118 19 16 240 40 1.03 7.9 06/27/232054 149 4.5 115 17 22 220 43 1.37 8.2 06/27/232054 4.1 Comment: Note updated reference ranges. 06/27/232054 2.5 Comment: Note updated reference ranges. 06/27/23 1832 178 06/27/23 1832 149 4.2 118 06/27/23 1727 170 06/27/23 1727 148 4.2 117 06/27/23 1525 141 06/27/23 1525 148 4.1 114 06/27/23 1431 140 06/27/23 1431 147 3.7 115 06/27/23 0049 2.6 Comment: Note updated reference ranges. 06/27/23 0049 145 4.2 114 20 15 54 44 1.70 8.0 06/27/23 0049 3.6 Comment: Note updated reference ranges. 06/26/23 0055 4.2 Comment: Note updated reference ranges. 06/26/23 0055 1.4 Comment: Note updated reference ranges. 06/26/23 0055 140 5.4 110 23 12 191 49 2.16 7.9 06/25/23 1342 143 4.7 110 22 16 107 41 1.86 8.0 CBC/PT/INR WBC RBC Hgb Hct MCV RDW Plt PT aPTT INR 06/28/23 0243 11.9 2.81 8.2 24.9 89 16.7 137 06/27/23 2055 1.10 06/27/23 2055 10.9 2.84 8.7 25.9 91 16.1 128 06/27/23 1832 8.4 26.1 06/27/23 1727 9.4 29.0 06/27/23 1525 10.0 30.8 06/27/23 1431 9.7 30.0 06/27/23 0049 16.8 3.43 10.3 30.1 88 16.3 140 06/26/23 0055 11.6 3.71 11.1 33.1 89 16.0 135 06/25/23 1342 15.5 3.45 10.4 31.6 92 15.9 140 WBC/Diff Neutro% Segs% Bands% Lymphs% Monos% Eos% Basos% 06/25/23 1342 65.0 17 2.0 1.0 Arterial Blood Gases T Site Mode LPM FIO2 pH pCO2 pO2 Sat Base Ex HCO3- A-a 06/27/23 1832 18 06/27/23 1832 7.343 33.0 135 97.8 -7.0 18 06/27/23 1727 19 06/27/23 1727 7.318 38.3 157 98.0 -6.0 19 06/27/23 1525 23 06/27/23 1525 7.335 43.4 109 96.7 -2.7 23 06/27/23 1431 22 06/27/23 1431 7.385 38.1 154 99.0 -1.9 22 Hepatic/Biliary/Pancreas None Fingerstick Glucose (last 72 hours) (Last 10 results in the past 72 hours) Glucose 06/28/23 0612 278 06/27/23 2347 261 06/27/23 1211 116 06/27/23 1021 110 06/27/23 0910 124 06/27/23 0842 61 06/27/23 0314 107 06/27/23 0200 104 06/27/23 0132 59 06/26/23 1752 91 Cultures: Blood Culture None Urine Culture Urine culture 06/25/23 1508 Positive Culture Report [P] >100,000 CFU/ml Escherichia coli [P] >100,000 CFU/ml Providencia stuartii [P] [P] - Preliminary Result Assessment/ Plan: Chikis Tobar is a 58 year old female with a history of micropapillary bladder ca s/p robotic RC/IC in 2021 at OSH, T1DM, 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 Presented to the ED 06/25 and was found to have a closed loop bowel obstruction. Now s/p XL, bowel resection w/ primary anastomosis, b/L ureteral reimplant on 06/26. Stoma catheter placed today for maximal drainage - Maintain b/L ureteral stents - Strict I/Os, trend labs - Maintain TOD drain, will need TOD Cr prior to d/c - WOCN consult for stoma care and supplies - Will continue to follow Patient d/w attending Dr. Yeimy Lopez MD Urology PGY-5 Team Pager [phone] * Concepción Carter PA-C - 06/28/2023 6:36 AM EDT Images from the original note were not included. [facility] NEUROSURGERY DAILY PROGRESS NOTE SUBJECTIVE: POD 1 from ex lap with gen surg & shunt externalization OBJECTIVE: Vitals: Vital sign ranges over the past 24 hours (retrieved 06/28/2023 at 6:36 AM): Tmax (24 hours): 99.3 F (37.4 C) Pulse Av.2 Min: 96 Max: 117 Systolic (24hrs), Av , Min:143 , Max:156 Diastolic (24hrs), Av, Min:54, Max:67 MAP (mmHg) Av.7 mmHg Min: 80 mmHg Max: 93 mmHg Resp Av.2 Min: 14 Max: 21 SpO2 Av.6 % Min: 92 % Max: 97 % In: 3400 (47 mL/kg) [I.V.:3400 (2 mL/kg/hr)] Out: 1434 (19.8 mL/kg) [Urine:615 (0.4 mL/kg/hr); Drainage:700] Net: 1966 Weight: 72.3 kg Medications: piperacillin/tazobactam 4.5 g Every 8 hours metoprolol 5 mg Every 4 hours insulin glargine 4 Units At Bedtime insulin lispro 2-12 Units q6h hydrophilic wound dressing 2x Daily heparin (porcine) 5,000 Units Every 8 hours lactated ringers 100 mL/hr at 06/28/23 0700 oxyCODONE 5 mg Q4H PRN oxyCODONE 10 mg Q4H PRN acetaminophen 650 mg Q4H PRN HYDROmorphone HCl PF 0.4 mg Q4H PRN ondansetron 4 mg Q6H PRN dextrose iv for hypoglycemia orderable 125 mL PRN Or glucagon 1 mg PRN Or dextrose 15 g of glucose PRN Or dextrose 30 g of glucose PRN Labs: CBC/PT/INR WBC RBC Hgb Hct MCV RDW Plt PT aPTT INR 06/28/23 0243 11.9 2.81 8.2 24.9 89 16.7 137 06/27/23 2055 1.10 06/27/232054 10.9 2.84 8.7 25.9 91 16.1 128 06/27/23 1832 8.4 26.1 06/27/23 1727 9.4 29.0 06/27/23 1525 10.0 30.8 06/27/23 1431 9.7 30.0 06/27/23 0049 16.8 3.43 10.3 30.1 88 16.3 140 06/26/23 0055 11.6 3.71 11.1 33.1 89 16.0 135 06/25/23 1342 15.5 3.45 10.4 31.6 92 15.9 140 WBC/Diff Neutro% Segs% Bands% Lymphs% Monos% Eos% Basos% 06/25/23 1342 65.0 17 2.0 1.0 Basic Metabolic Panel Na K Cl CO2 Gap Glu BUN Cr Ca Mg PO4 06/28/23242 2.6 Comment: Note updated reference ranges. 06/28/23242 2.5 Comment: Note updated reference ranges. 06/28/23242 149 4.0 118 19 16 240 40 1.03 7.9 06/27/232054 149 4.5 115 17 22 220 43 1.37 8.2 06/27/232054 4.1 Comment: Note updated reference ranges. 06/27/232054 2.5 Comment: Note updated reference ranges. 06/27/23 1832 178 06/27/23 183 149 4.2 118 06/27/23 1727 170 06/27/23 1727 148 4.2 117 06/27/23 1525 141 06/27/23 1525 148 4.1 114 06/27/23 1431 140 06/27/23 1431 147 3.7 115 06/27/239 2.6 Comment: Note updated reference ranges. 06/27/2348 145 4.2 114 20 15 54 44 1.70 8.0 06/27/23 0049 3.6 Comment: Note updated reference ranges. 06/26/2354 4.2 Comment: Note updated reference ranges. 06/26/2354 1.4 Comment: Note updated reference ranges. 06/26/2354 140 5.4 110 23 12 191 49 2.16 7.9 06/25/23 1342 143 4.7 110 22 16 107 41 1.86 8.0 Hepatic/Biliary/Pancreas None Cardiac None Arterial Blood Gases T Site Mode LPM FIO2 pH pCO2 pO2 Sat Base Ex HCO3- A-a 06/27/23 1832 18 06/27/23 1832 7.343 33.0 135 97.8 -7.0 18 06/27/23 1727 19 06/27/23 1727 7.318 38.3 157 98.0 -6.0 19 06/27/23 1525 23 06/27/23 1525 7.335 43.4 109 96.7 -2.7 23 06/27/23 1431 22 06/27/23 1431 7.385 38.1 154 99.0 -1.9 22 Fingerstick Glucose Glucose 06/28/23 0612 278 06/27/23 2347 261 06/27/23 1211 116 06/27/23 1021 110 06/27/23 0910 124 06/27/23 0842 61 CSF Culture None Urine Culture Urine culture 06/25/23 1508 Positive Culture Report [P] >100,000 CFU/ml Escherichia coli [P] >100,000 CFU/ml Providencia stuartii [P] [P] - Preliminary Result Pyogen Culture None Blood Culture None Sputum Culture None Physical Exam: Awake, alert Ox3 PERRL EOMI Face symmetric, tongue midline BU 5/5, no drift RLE 5/5 LLE with fracture/splint, wiggles toes Sensation intact to light touch Dressing at clavicle c/d/I Shunt patent A: Pt is a 58 year old year old female PMH of T1DM cb/ DKA, urothelial carcinoma of the bladder s/pradical cystectomy and ileal conduit c/b SBO (Dec 2021), HTN, chronic sinusitis, asthma, persistent encephalopathy and hydrocephalus 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 NSGY consulted by ACS in setting of patient requiring surgical intervention for SBO and need for possibleOR availability to externalize VPS. P: -SICU under EGS -Keep EVD open at 0 at level of the clavicle -no need to tranduce ICP's -abx per general surgery -no need for intracranial imaging -PT/OT -will coordinate with EGS regarding timing and location of reinternalization -NSGY to follow Isaías Hardin MD Neurological Surgery, PGY-2 Service Pager: [phone] 06/28/2023 - 6:37 AM ### Addendum 06/28/23 0915 ### Please obtain a CTH wo to assess ventricular size. Concepción Carter PA-C Neurosurgery Service Pager: [phone] 06/28/2023 - 9:12 AM * Juan Chambers MD - 06/27/2023 11:16 PM EDT Postoperative Check S/P ex lap, small bowel resection, ileocecectomy, ureteroenterostomy, externalization of GEOLOGICAL ENGINEERING TEACHER shunt at clavicle Subjective Patient evaluated at the bedside postoperatively. Doing well. Pain well controlled, endorses betterthan prior to surgery. Does not endorse flatus yet. Minimal bilious output in NGT cannister. No nausea or emesis. Objective Vitals Recorded in This Encounter 06/27/20235 06/27/2023 2100 06/27/2023 2115 06/27/2023 2130 06/27/2023 2300 BP: 151/61 151/60 146/54 143/61 -- Pulse: 109 109 109 109 -- Resp: 16 16 16 16 -- SpO2: 96 % 96 % 96 % 97 % -- Pain Score: -- -- -- -- 2 -General - not appearing in distress, laying comfortably in bed -Neurologic - No obvious focal deficit, normal speech -Cardiovascular - tachcardia -Respiratory - no respiratory distress, symmetrical chest expansion, on room air -Abdomen - soft, mildly distended, appropriately tender to palpation around incisions. Midline incision with small dry strikethrough. -Skin/Pressure ulcers - warm and dry -Psychiatric - normal affect -Extremities - moves all extremities, no pitting edema Intake/Output Summary (Last 24 hours) at 06/27/2023 2316 Last data filed at 06/27/20232023 Gross per 24 hour Intake 3350 ml Output 1034 ml Net 2316 ml Assessment & Plan POD 0, continue current post op care. - Encourage IS use - No changes to pain regimen - TOD to bulb suction - NGT to MISTY Chambers MD Surgery Resident Department of Surgery [facility] * Jenny Borden RN - 06/27/2023 12:34 PM EDT Patient's dexcom and insulin machine is in family member's possession when patient went down to OR @1235 * Qasim Hamlin LSW - 06/27/2023 12:34 PM EDT Pt will potentially transfer to [facility] potentially after her OR 06/26 SW will continue to follow peripherally if needs arise ABDELRAHMAN Abdalla * Rivas Prasad MD - 06/27/2023 11:41 AM EDT Images from the original note were not included. Anesthesia Pre-Operative Evaluation Chikis Tobar 58 year old female For: LAPAROTOMY, EXPLORATORY 144 lbs 5' 6 last BMI is undetermined because no height found CHIEF COMPLAINT: Chief Complaint Patient presents with Abdominal pain Pt states abd pain for the past day, sent here from [place] for bowel obstruction, hx of bladder cancer and has nephrostomy tubes VITAL SIGNS: BP 156/67 (BP Location: right arm) Pulse 96 Temp 37.1 C (98.8 F) (Oral) Resp 16 Ht 5' 6 (1.676 m) Wt 144 lb (65.3 kg) SpO2 93% BMI 23.24 kg/m Glucose: 116 mg/dL NPO STATUS: NPO > 8 hours BLOOD PRODUCTS: Type and Screen ABO Rh Type (no units) Date Value 06/25/2023 A Positive Ab Screen Interp (no units) Date Value 06/25/2023 Negative No results found for: CROSSINT ALLERGIES: Midazolam, Demerol hcl [meperidine], Flexeril [cyclobenzaprine], and Orphenadrine S.T.O.P. SCORE: 1 SOCIAL HISTORY: has no history on file for drug use. MEDICAL HISTORY: No past medical history on file. SURGICAL HISTORY: No past surgical history on file. PROBLEM LIST: Patient Active Problem List: Small bowel obstruction (HCC) [K56.609] Per Epic: 06-27-2023: ..58 year old female with PMH of HTN, DM, Asthma, fungal meningitis and Bladder cancer s/p Cystectomy and ileal conduit in 2020. She is now presenting with small bowel obstruction. Patient had elevated lactate on presentation in the setting of minimal abdominal tenderness, appropriately downtrending after fluid resuscitation. Plan to Admit to EGS service on . Hospital Course/Procedures: 06/24: admitted to EGS with concern for SBO possible closed loop 06/25: worsening abdominal pain. NGT placed. .... 12-14-2022 Care Everywhere: ...Chikis was admitted from OSH after being found unresponsive. CT brain showed hydrocephalus with MRI on May 29 showing multiple enhancement in the anterior sabra, medulla, and in the spine at the level of see 7-T3 and L1-S2. She underwent EVD placement followed byCertas shunt set to 4 on 07/10/22. Meningeal biopsy was notable for fungal hyphae and she is being treated by ID. On 08/16/[address] brain showed decreased in ventricular size development of small subdural hygromas overlying the frontal lobes measuring up to 8 mm in maximal thickness and her shunt wasadjusted from 4 to 7. Since last visit Chikis has continued to do well. She admits stable gait andusing cane for safety. She does have a trujillo in place but denies new onset symptoms or acute worsening...... ANESTHESIA REVIEW OF SYSTEMS: Eyes/ENT: cataract, naso gastric tube. Teeth: Negative Pulmonary: never smoker. hx asthma. Acute respiratory failure.. Cardio-vascular: HTN, Venous insufficiency. Palpitations. 10-03-2022 Outside Echo: LVEF 60-65%. +LVH. chambers and valves nromal trace TR. G.I./ Hepatic: Small bowel obstruction. 2021 Reduction of small-bowel volvulus. Ileostomy. Renal/: 2021 MARLENA. Malignant tumor of urinary bladder. 2021 radical cystectomy and ileal conduit. left renal stones. Elevated creatinine. Neurological: Hydrocephalus. GEOLOGICAL ENGINEERING TEACHER shunt. 2022 Meningeal biopsy was notable for fungal hyphae. 2021 CYSTECTOMY W/BI PELVIC LYMPHADENECTOMY. Hysterectomy. EGD CORRECT MALROTATION VIA LYSIS OF DUODENAL BANDS / REDUCTION OF MIDGUT VOLVULUS. Some numbness from waist down since the 2022 spine surgery. Gynecological: right ovary removed. Hysterectomy. Psychiatric: Claustrophobia Musculoskeletal: ORIF right ankle. hx left patella fx. 2022 LAMINECTOMY FOR BIOPSY OF INTRASPINAL NEOPLASM, EXTRAMEDULLARY, THORACIC. Endocrine: Type 1 diabetes mellitus. Hx DKA. Hematologic: leukocytosis Constitutional: Pressure ulcer of sacral region. Rosacea. PREVIOUS ANESTHETIC EXPERIENCES AND INTUBATION HISTORY: No previous anesthetic complication 07-10-2022 outside facility IMPLANT SHUNT VENTRICULOPERITONEAL (Right: Brain) GA mac4 grade one. 07-07-2022 outside facility MRI SPINAL CANAL AND CONTENTS GA Frank grade one. 06-26-2022 outside facility LAMINECTOMY FOR BIOPSY OF INTRASPINAL NEOPLASM, EXTRAMEDULLARY, THORACICGA Frank grade one.. 01-13-2022 outside facility EGD IV sedation. 12-29-2021 outside facility EGD IV sedation. 12-26-2021 outside facility EGD IV sedation. 12-17-2021 outside facility EGD CORRECT MALROTATION VIA LYSIS OF DUODENAL BANDS / REDUCTION OF MIDGUTVOLVULUS GA mac4 grade one. 09-21-2021 outside facility EGD IV sedation. FAMILY HISTORY OF ANESTHETIC COMPLICATIONS: No PHYSICAL EXAM: Pulmonary: Chest clear to auscultation bilaterally Cardiovascular: RRR with S1S2 Neurologic: Awake, alert, oriented. Some numbness from waist down since the 2022 spine surgery. Extremities: left patella fx AIRWAY EXAM: Mallampati score: 2 TMD: Adequate Neck Extension/ Flexion: Adequate Mouth Opening: Adequate Dentition: Intact Micrognathia/Overbite: No PAIN ASSESSMENT: Severity: 2 LABORATORY DATA: CBC (last 3 years, up to 5 values) WBC RBC Hgb Hct MCV RDW Plt 06/27/2348 16.8 3.43 10.3 30.1 88 16.3 140 06/26/235 11.6 3.71 11.1 33.1 89 16.0 135 06/25/23 1342 15.5 3.45 10.4 31.6 92 15.9 140 06/25/23 0432 5.1 4.06 12.1 36.4 90 15.2 176 Basic Metabolic Panel Na K Cl CO2 Gap Glu BUN Cr Ca 06/27/2348 145 4.2 114 20 15 54 44 1.70 8.0 06/26/2354 140 5.4 110 23 12 191 49 2.16 7.9 06/25/23 1342 143 4.7 110 22 16 107 41 1.86 8.0 06/25/232 142 3.2 110 22 13 129 30 1.40 8.4 Basic Metabolic Panel Na K Cl CO2 Gap Glu BUN Cr Ca Mg PO4 06/27/2348 2.6 Comment: Note updated reference ranges. 06/27/2348 145 4.2 114 20 15 54 44 1.70 8.0 06/27/2348 3.6 Comment: Note updated reference ranges. 06/26/2354 4.2 Comment: Note updated reference ranges. 06/26/235 1.4 Comment: Note updated reference ranges. 06/26/2354 140 5.4 110 23 12 191 49 2.16 7.9 06/25/23 1342 143 4.7 110 22 16 107 41 1.86 8.0 06/25/23 0432 142 3.2 110 22 13 129 30 1.40 8.4 INR (no units) Date Value 06/25/2023 1.15 (H) Arterial Blood Gases None No result for BNP LFT's (last 3 years, up to 5 values) None CURRENT MEDICATIONS: Current Facility-Administered Medications Medication Dose Route Frequency Last Rate Last Admin lactated ringers iv infusion Intravenous Continuous piperacillin-tazobactam (ZOSYN) 2.25 g in dextrose 50 mL IVPB 2.25 g Intravenous Q6H Antibiotic [JUN Hold] dextrose 5 % and lactated ringers iv infusion Intravenous Continuous 100 mL/hr at 06/27/23 1000 New Bag at 06/27/23 1000 [JUN Hold] insulin glargine (LANTUS SOLOSTAR/BASAGLAR KWIKPEN) 100 UNIT/ML PEN injection 4 Units Subcutaneous At Bedtime [JUN Hold] insulin lispro (HumaLOG) 100 UNIT/ML injection 2-12 Units Subcutaneous q6h [JUN Hold] ondansetron (ZOFRAN-ODT) disintegrating tablet 4 mg Oral Q6H PRN 4 mg at 06/27/23 1135 [JUN Hold] hydrophilic wound dressing (TRIAD) external paste Apply externally 2x Daily Given at 06/27/23 0900 metoprolol (LOPRESSOR) 5 mg in dextrose 5 % 50 mL ivpb 5 mg Intravenous Every 4 hours 200 mL/hr at 06/27/23 0855 5 mg at 06/27/23 0855 [Jun] HYDROmorphone (DILAUDID) 0.2 MG/ML injection 0.3 mg 0.3 mg Intravenous Push Q4H PRN 0.3 mg at 06/27/23 1209 heparin (porcine) 5000 UNIT/0.5ML injection 5,000 Units Subcutaneous Every 8 hours 5,000 Units at 06/27/23 0609 [Jun] dextrose 10 % iv infusion 125 mL Intravenous PRN 999 mL/hr at 06/27/23 0851 125 mL at 06/27/23 0851 Or [JUN Hold] glucagon (GLUCAGEN) 1 MG injection 1 mg Subcutaneous PRN Or [JUN Hold] dextrose (GLUTOSE) 40 % oral gel 15 g of glucose Buccal PRN Or [JUN Hold] dextrose (GLUTOSE) 40 % oral gel 30 g of glucose Buccal PRN TESTS REVIEWED: CXRay: 06-26-2023: ...COMPARISON: Chest radiograph 06/25/2023 FINDINGS: Lines, tubes, and devices: Partial visualization of GEOLOGICAL ENGINEERING TEACHER shunt overlying the right chest. Lungs and pleura: Left lower lung zone opacities with blunting of the left costophrenic angle. No pneumothorax. There is pulmonary vascular congestion. Cardiomediastinal silhouette: Normal cardiomediastinal silhouette. Musculoskeletal: Unremarkable. IMPRESSION: Left lower lung zone opacities concerning for pneumonia with small volume left effusion. Mild pulmonary vascular congestion..... EK06-25-2023 sinus tach 116. ECHO: Last Echocardiogram: none found going back to 04/24/2015 No results found for this basename: LVEF Stress test date: Last StressTest: none found going back to 04/24/2015 ANESTHESIA PLAN: General anesthesia: ETT with medications possibly including but not limited to anxiolytics, narcotic analgesics, IV hypnotic anesthetics, neuromuscular blockers and inhalational anesthestics. Anesthetic Risks and Options Discussed: Yes Pain Management Plan: IV with medications possibly including but not limited to anxiolytics and narcotic analgesics. Patient agrees to the procedure and anesthesia plan: Yes ASA Class: 4 = A patient with severe systemic disease that is a constant threat to life. Procedure: Elective Interviewer signature: Rivas Prasad MD * Jenny Borden RN - 06/27/2023 8:48 AM EDT /LADARIUS mcgarry notified of critical Glucose value of 61. /LADARIUS mcgarry read back critical results.New orders received. Hypoglycemia protocol initiated. ~0916 recheck blood glucose. 124 D5LR cont. Fluids ordered * Valorie Perez RN - 06/27/2023 1:40 AM EDT 0130 RN notified by Nurse Wire Drawing Machine Tender that patient blood glucose was 60. Nurse Wire Drawing Machine Tender double checked blood glucose and it was 59. 0133 RN administered Dextrose per orders and notified MD Juan Chambers. RN will recheck blood glucoseafter administration of Dextrose. 0150 /LADARIUS Chambers notified of critical Glucose value of 54. /LADARIUS Jules read back critical results. New orders not received. 0200 Blood Glucose rechecked and it was 104. Will recheck in 1 hour post dextrose infusion per orders. * Valorie Perez RN - 06/26/2023 5:09 AM EDT 06/26/23 0432 Vital Signs SpO2 85 % MD Juan Chambers notified of O2. * Celina Guadalupe RN - 06/25/2023 10:29 PM EDT 06/25/23 2228 Glucose reading Glucose Reading 201 mg/dl Comments Home device- see communication order * Kemi Kearney MD - 06/25/2023 6:14 PM EDT Division of Trauma, Surgical Critical Care, EGS Ticket to Roll Note Provider Called Report To Dr. Kearney. EGS. 1700, who is the RUP. The patient is transferring from ED, room # 36, to Trauma [facility] 5E. room # 702-2. The patient was added to the Emergency General Surgery list. Kemi Kearney MD RUP = Receiving unit provider [facility] = Regular nursing floor * Kemi Kearney MD - 06/25/2023 5:24 PM EDT EGS team plan of care note: Chikis Tobar is a 58 year old female with PMH of HTN, DM, Asthma, fungal meningitis and Bladdercancer s/p Cystectomy and ileal conduit in 2020. She is now presenting with small bowel obstruction. Patient had elevated lactate in the setting of minimal abdominal tenderness, appropriately downtrending after fluid resuscitation. Plan to Admit to EGS service on RNF. Neurologic Analgesia: Dil 0.3 mg q4hr PRN Respiratory Respiratory Automobile Washer Steam Protocol Bronchopulmonary Hygiene Incentive Spirometer No acute resp concerns Cardiovascular Monitor Vitals q4hrs GI Diet: Strict NPO No Bowel Regimen Holding NGT for now. Insert NGT to LIWS if patient becomes nauseous and has emesis Possible SBFT in AM Renal/ D5 LR @ 150 cc/hr Measure I&O Daily BMP, Mg, Phos. Replace as needed (Maintain K >4, Phos >3, Mg >2) Trending lactate q6hrs Endo Sliding scale insulin, POCT q6hr in the setting of SBP Glargine 9 U at bedtime in the setting of NPO Heme No indication for transfusion at this time. Daily CBC ID No indication for antibiotics at this time. MSK - Progressive mobility protocol PT/OT Prophylaxis: VTE - SCDs and SQH Dispo: RNF, admit under EGS service Kemi Kearney MD Surgery Resident [facility] [phone] EGS Consults [phone] EGS Floor Patients * Blayne Ohara MD - 06/25/2023 12:21 PM EDT [facility] DIVISION OF ACUTE CARE SURGERY PLAN OF CARE UPDATE Name: Chikis Tobar 06/25/2023 12:21 PM Notified of increasing lactate. Patient awaiting transfer to [facility] for continuity of care. Abdomen soft, mild tenderness, no distention, no peritonitis. Patient has only received 2 doses of dilaudid inED, improves pain 10 to 1/10. Patient only received 1L LR bolus, has been vomiting yesterday, suspect overall patient remains under resuscitated. - NPO - Will continue to monitor - Bolus additional liter of LR - Repeat Lactate in 1 hour - Continue transfer to [facility] Patient seen and plan of care discussed with attending Surgeon, Dr. Pola Ohara MD PGY-4 Surgery Acute Care Surgery Chief Resident Department of Surgery [facility] [phone] ACS Consults [phone] ACS Floor Patients documented in this encounterTHE [facility] HOSPITALSoftoCoupon Work Phone: [phone] Miscellaneous Notes* Telephone Encounter - Marlene Cordero PA-C - 07/04/2023 8:26 AM EDT Call to Chikis, Her shunt is currently externalized and has not had change in symptoms. I discussed the situation with Dr Oconnor who agrees with [facility]'s plan. She will keep us updated and follow up as outpatient. Marlene Cordero PA-C documented in this encounterThe [facility] System03-14-2024 NotePhysical Therapy Note Attempted to see patient for re-evaluation, however patient to get PICC line. Will continue to follow. Cindi Perry, PT, DPT #[id number] [facility] HealthScintella Solutions [id number] NoteOCCUPATIONAL THERAPY Attempt to see patient for re-evaluation this date. Prior to mobilizing OOB, PICC team arrived for line placement. Will re-attempt to see patient at next appropriate opportunity. Cassidy Terrazas, OTR/LThe [facility]03-12-2024 Hospital Discharge instructions* Discharge Instructions* Kelsey Victoria PA-C - 06/26/2023 5:28 PM EDT NEUROLOGICAL SURGERY DISCHARGE INSTRUCTIONS C O N F I D E N T I A L I N F O R M A T I O N Chikis Tobar [id number] The following is a brief overview of your hospitalization. Some of the information contained on this summary may be confidential. This information should be kept in your records and should be shared with your regular doctor. Admission Date:06/25/2023 4:11 AM Discharge Date: 07/11/2023 Disposition: Home PRINCIPAL DIAGNOSIS (reason after study for this admission): Small Bowel Obstruction Other Diagnosis: Patient Active Hospital Problem List: Patient Active Problem List: Small bowel obstruction ([facility]) [K56.609] Physicians: Attending: General Surgery - Dr. Brooks Martinez Neurosurgery - Dr. Daniel Figueroa Urology - Dr. Arlene Chambers Operations performed while hospitalized: 06/27/23 Resection of ileum and cecum; Anastomosis of ileum and cecum; Transversus abdominis plane block (general surgery); reimplantation of ureters into the ileal conduit (urology); right sided ventriculoperitoneal shunt externalization at the clavicle (neurosurgery) 07/10/23 Removal of right frontal approach ventriculoperitoneal shunt, previously externalized belowthe right clavicle (neurosurgery) Additional findings: None Pending results: None Pain Control: Take your pain medications as prescribed as needed for breakthrough pain. These include narcotics, which can induce constipation. Please take docusate when taking narcotics to prevent constipation. Please be advised that opioids cause sedation and that you should not drive or operate d angerous machinery while taking opioids and should not mix with alcohol or other sedating drugs. There is a risk of respiratory, DIRECTOR PUBLIC depression and when medications are misused and opioids havepotential for addiction. Please take only as prescribed, store in a safe place, and dispose of extra medication appropriately. Ask your pharmacy for more details. Activity after Discharge: No heavy lifting, weight bearing as tolerated, no driving until mobility is returned to normal. Do not submerge wound(s) in standing water for 7 days after surgery (no tub bathing, swimming, or hot tubs). Do not lift, push or pull more than [address] for [address] or operate heavy machinery while taking narcotic pain medications as these medications can alter perception, impair judgement, and slow reaction times. Treatment/wound care: *call office for increased bleeding, pus, discharge from surgical site; fever >102F *any remaining sutures/lorna to be removed on follow-up appointment with BOARD MIXER TENDER or PA (or on POD#14 in Rehab if well healed) *cranial surgery: you MUST start daily hair/incision washing 3 days after surgery *pat dry gently, do not leave saturated; shower/running water only - NO bath, pool, hot-tub (no still/standing water) -okay to use shampoo; avoid hair-dryer, comb/brush over incision site; do not dye hair until discussed at follow-up appointment *no lotions or creams on or near incision site; leave uncovered (a very small amount of bacitracin may be used ONLY for excessive itchiness as incision heals; wash off & re-apply daily) *use an alcohol swab near the edges of the incision daily, however, DO NOT apply alcohol swab to the incision itself *If you are a smoker, this is the time to quit. Do not smoke from the time you find out you are having surgery. Smoking increases your healing time to nearly double that of a non smoker. Smoking alsoincreases the risk of complications and problems following surgery. Signs of Bleeding You could have some blood in your urine off and on over the next several weeks. Your urine will be light pink to yellow. Minor bleeding or drainage may occur from the surgical sites; however, excessive or consistent bleeding should be reported to your surgeon. Excessive bleeding is defined as bloodthat is dripping from wound, soaking you bandages, and is ketchup colored, thick with possible blood clots. Consistent is defined as bleeding that does not stop. Diet: Resume regular diet Follow-Up: -Please call the Dr. Figueroa's office T: [phone] to schedule follow up within 10-14 days post-op -Follow up with General Surgery on 07/18/23 at 2:45pm -Follow up with Dr. Chambers (Urology) on 07/26/23 at 1:40pm Additional Instructions: - please note - in case of emergency and your insulin pump stops working, your Lantus dose has dropped from 30U to 28U daily - do not take Aspirin or NSAIDs (i.e. Advil/Motrin/ibuprofen, Aleve/naproxen sodium, Celebrex/celecoxib, Mobic/meloxicam, diclofenac, nabumetone, etodolac, etc.), or Vitamin E, or Grant-3 fish oils until discussed at follow up appointment, as they can interfere with bleeding/clotting (and success of any bony fusion) - for any changes in neurological exam including, but not limited to: new or worsening seizures; changes in vision, speech, or swallowing; new weakness; loss of sensation; changes in memory; worsening balance; worsening headache; neck pain; bowel or bladder incontinence --> return to [facility] or go to your closest ER, and call your Neurosurgeon - You may call [phone] if you have questions or concerns after regular business hours and ask to be transferred to the neurosurgery resident on-call. - The two stents coming out of your stoma will be removed for you at your follow up appointment with Dr. Chambers (Urologic surgeon). Call [phone] option 1 during regular daytime business hours (8:00 am - 5:00 pm) and after 5:00 pm call [phone] and ask for the Urology resident with any questions or concerns. I have received a copy of the above instructions and understand them. I have received my personal belongings and/or valuables slip. SIGNED: Patient/Significant Other SIGNED: Registered Nurse Electronically SIGNED by: Dilcia Garcia PA-C Neurosurgery We value your opinion! If you receive a customer satisfaction survey about your hospital stay, please complete and return. We will use this information to improve our services. Please remember to discard old medication lists and to update your records with all healthcare providers and retail pharmacies. EMERGENCY GENERAL SURGERY DC INSTR Discharge Instructions: Date of admission: 06/25/2023 Date of discharge: Per Primary Team Follow up: - You will need to follow up with: - Dr. Martinez in clinic for post-operative follow-up on 07/18/23 at 2:45 PM. - Your family doctor regarding post-hospitalization care. - See below for information regarding contacting your primary care physician or establishing care at [facility] if you do not already have one. Activity and Weight Bearing: - You do not have any weight bearing limitations/restrictions. - Do not lift, push, pull, or drag anything heavier than 15 pounds for 4 weeks. - You may return to driving when your pain is controlled enough that you can turn at your waist from side to side. Do not drive if you have taken an opioid medication within the past 24 hours. Showering/Bathing: - Okay to shower daily -- allow soap and water to run down your incisions. Do not scrub the area. The surgical glue over the top of your incisions will start to flake, please allow this to flake off on its own over the next week. - If you cannot maintain your balance in the shower, then you should not shower. Sponge baths are the best way to maintain hygiene while you are healing. - To sponge bath, wet a washcloth with soapy water and gently wash body with the washcloth. Then use a dry washcloth to wipe off. - No submerging the wound in water (bathtubs) or pools until cleared by our office. Diet: - You do not have any dietary restrictions. However, following surgery, eating small, frequent meals of bland and soft foods can be easier to tolerate. Pain control: Per primary team Update your primary care physician or establish care: Please see your primary care physician at the next available appointment for follow up. Please call either on the day of your discharge, or the day after, to make the appointment. If you are followed by a managed care company or if your insurance requires, call your physician for authorization to be seen in a specialty clinic. If you do not have a primary physician please call [phone] for guidance on finding a [facility] provider. If you have questions or concerns, if your condition worsens or you develop new symptoms please call the [employer] Line at [phone]. documented in this encounterTHE [employer] Work Phone: [phone]) 259-364303-12-2024 History of Present illness Narrative* Peterson Gonsalez MD - 06/26/2023 10:20 AM EDT Appointment cancelled, patient currently admitted to hospital. documented in this encounterThe [facility]03-12-2024 Note06/25/232227 Glucose reading Glucose Reading 201 mg/dl Comments Home device- see communication orderThe [facility]03-08-2024 Miscellaneous Notes* Telephone Encounter - Lexie Askew - 06/22/2023 9:12 AM EST Patient has been identified by name and date of : Yes Last office visit in this department: 03/19/2023 RX INSTRUCTIONS: Patient aware RX will be sent to pharmacy. No need to notify patient. Patient phones requesting refills as follows: Requested Prescriptions Pending Prescriptions Disp Refills NOXAFIL 100 mg tablet [Pharmacy Med Name: NOXAFIL 100MG TAB] 90 tablet 10 Sig: take 3 tablets by mouth every day Please review and advise. Lexie Montgomery documented in this encounterThe [facility] System03-07-2024 Miscellaneous Notes* Addendum Note - Aashish Monge PA-C - 06/21/2023 4:23 PM ESTAddended by: AASHISH MONGE on: 06/21/2023 04:23 PM Modules accepted: Orders documented in this encounterThe [facility] System03-07-2024 History of Present illness Narrative* Aashish Monge PA-C - 06/21/2023 4:03 PM EST Orthopaedic Surgery Clinic Established Visit - VIRTUAL [...] She endorses a asleep feeling to the frontof her left leg from her abdomen to [...] spent on this encounter documented in this encounterThe [facility] System03-06-2024 History of Present illness Narrative* Cinthia Noyola - 06/20/2023 9:00 AM EST POPULATION HEALTH NAVIGATION OUTREACH Action/FYI RP Patient [...] 20, 2023 9:00 AM documented in this encounterThe [facility]03-04-2024 History of Present illness Narrative* Carolyn Echevarria RT(R) - 06/18/2023 10:00 AM EST Radiology Service Progress Note PATIENT NAME: Chikis Tobar DATE OF SERVICE: June 18, 2023 TIME: 10:43 AM PATIENT IDENTITY VERIFICATION COMPLETED USING TWO [...] PATIENT PRESENTS WITH AN IMPLANTABLE OR ATTACHED AIRCRAFT DESIGN ENGINEER: No RADIOLOGY DEPARTMENT: General X-ray: Exam(s) Completed: Lower Extremity X- Ray(s): Knee, AP / LAT Left PERIPHERAL IV DATA: Not applicable SIGNED BY: RT Lisa(R) June 18, 2023 10:43 AM documented in this encounterThe [facility]03-04-2024 History of Present illness Narrative* Marlena Anaya RN - 06/18/2023 9:15 AM EST Radiology Service Progress Note DATE OF SERVICE: June 18, 2023 TIME: 9:19 AM PATIENT WEIGHT: 148LBS PATIENT IDENTITY VERIFICATION COMPLETED USING TWO (2) STANDARD IDENTIFIERS: Name and Date of confirmed by patient verbally. FALL SCREENING: Has the patient had 2 falls in the last year or 1 fall with injury or currently using an Ambulatory Assistive Device (Walker, Cane, Wheelchair, Crutches, etc.)? No PATIENT GENDER DATA: Female. status: : No status: NO. ALLERGIES: Reviewed and unchanged CONTRAST ALLERGY: No EXAM: CT -CONTRAST INDUCED NEPHROPATHY RISK FACTORS: Not applicable CREATININE: Creatinine Date Value Ref Range Status 05/10/2023 0.67 0.58 - 0.96 mg/dL Final 03/19/2023 0.64 0.58 - 0.96 mg/dL Final 02/20/2023 0.61 0.58 - 0.96 mg/dL Final Estimated Glomerular Filtration Rate Date Value Ref Range Status 05/10/2023 103 >=60 mL/min/1.73m Final Comment: Estimated Glomerular Filtration Rate (eGFR) is calculated using the 2020 CKD-EPI creatinine equation. This equation utilizes serum creatinine, sex, and age as parameters. The creatinine assay has traceable calibration to isotope dilution- mass spectrometry. Refer to KDIGO guidelines for clinical interpretation. In patients with unstable renal function, e.g. those with acute kidney injury, the eGFRmay not accurately reflect actual GFR. eGFR- Date Value Ref Range Status 05/25/2021 >60 Final P.O.C.T. RESULTS: N/A June 18, 2023 TREATMENT: N/A IV SITE: Ambulatory: A peripheral IV was started in the Right antecubital site with a Angio cath: 20 gauge. IV SITE APPEARANCE: Clean,Dry and Intact SIGNATURE: Marlena Anaya RN PATIENT NAME: Chikis Tobar DATE: June 18, 2023 TIME: 9:19 AM * Carolyn Echevarria RT(R) - 06/18/2023 9:15 AM EST Radiology Service Progress Note PATIENT NAME: Chikis Tobar DATE OF SERVICE: June 18, 2023 TIME: 11:14 AM PATIENT IDENTITY VERIFICATION COMPLETED USING TWO (2) IDENTIFIERS: Name and Date of confirmedby patient verbally. FALL SCREENING: Has the patient had 2 falls in the last year or 1 fall with injury or currently using an Ambulatory Assistive Device (Walker, Cane, Wheelchair, Crutches, etc.)? No PATIENT GENDER DATA: Female. status: : No status: NO. PATIENT RELEVANT IMPLANT DATA REVIEWED: Yes PATIENT PRESENTS WITH AN IMPLANTABLE OR ATTACHED AIRCRAFT DESIGN ENGINEER: Yes Other RADIOLOGY DEPARTMENT: CT; Exam(s) Completed: Chest and Urogram PERIPHERAL IV DATA: Site assessment: Clean,Dry and Intact, Site disposition Discontinued SIGNED BY: RT Lisa(R) June 18, 2023 11:14 AM documented in this encounterThe [facility]02-12-2024 Evaluation note* Encounter Date Diagnosis Assessment Notes Treatment Notes Treatment Clinical Notes May, Nausea and vomiting in adult (IC D-10 - R11.2) Instructed on diet - bland diet - sips of water every 10min - small, frequent meals If pain increases, vomiting persists despite Zofran would recommend ER visit for IV fluids and lab/imaging procedures. May,Generalized abdominal pain (ICD-10 - R10.84)Nontender w/o bloating, guarding or rebound tenderness. Appears in no distress Diet instructions reviewed No XR necessary wo peritoneal symptoms May,Mild dehydration (ICD-10 - E86.0)Push fluids, but suggest sips of water every 10 minutes. Use Zofran every 6 hours as needed May,Type 1 diabetes mellitus with hyperglycemia (ICD-10 - E10.65) Increased risk of hyperglycemia and DKA. She is monitoring her BS w/ CGM and treatment w/ pump. She is very proficient in controlling her diabetes She has no s/s of DKA or intercurrent infection ER if unable to control BS or hydrate 4moms Other 01-25-2024 History of Present illness Narrative* Jamie Mccarty MD - 05/10/2023 10:15 PM EST Images from the original note were not included. INFECTIOUS DISEASES OUTPATIENT FOLLOW-UP NOTE SERVICE DATE: May 10, 2023 Last visit: March 19, 2023 INTERVAL HPI : HPI: 57 year old [...] performed and she was transferred to [facility]. She was found to have DKA. A CT head showed hydrocephalus with MRI on May 29 showing multiple enhancement in the anterior sabra, medulla, and in the spine at the level of C7-T3 and L1-S2. Multiple taps were performed and were unsuccessful. A GEOLOGICAL ENGINEERING TEACHER shunt was placed and patient underwent a [...] over the frontal lobes (8 mm). LFTs / normal . GEOLOGICAL ENGINEERING TEACHER shunt was adjusted from 4 to 7 Posaconazole level 2.4 on 08/21/22 Developed a facial rash in September 2022, mainly the malar area, a few spots on the forehead. 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 She was seeing wound care at [facility] for her sacral area ulcer. Rx'd with [...] cytology. Continue surveillance imaging q 6 months. [place] remains in place. ID clinic 01/15/23, doing fairly well overall, tolerating posaconazole. Strength improving and ambulatory, using a cane PRN. No GEOLOGICAL ENGINEERING TEACHER shunt issues. Balance has improved but still needs to work on it. Area of persistent numbness in the upper thoracic region which has not changed much, along with some areas of numbness on the lateral thighs, which has been present all along. Facial rash better, being treated as rosacea by PCP. Glucose well controlled. Plan 1 year of antifungals and then reassess withimaging. ID clinic 03/19/23: Seemed to have reached a plateau with her neuro recovery, with stable balance problems and various areas of sensory loss. Neuro exam showed abnormal Romberg (unable to stand feet together with eyes OPEN), balance deficits, some decreased sensation upper back region (around T5) and patchy areas both anterolateral thighs. Ambulatory with a cane, improving wt, and overall motor strength. Had a near fall in prior week without direct head trauma, probably due in part to chronic balance problems. Also had bilateral shoulder pains and receiving PT. Last MRI brain 07/07/22 (postop) showed FLAIR hyperintensity of trigeminal nerves, facial, and vestibulocochlear, and glossopharyngeal and vagal nerves (no significant contrast enhancement of cranial nerves though). MRI of cord 07/07/22 showed extensive leptomeningeal enhancement throughout the entire spinal canal and extending intothe brainstem and basilar cisterns. Plan for MRI of brain and spine, neurosurgical FU to evaluate shunt settings after MRI. Offered Orthopedics consult for bilateral shoulder pain, presumed rotator cuff Currently: Patient returns as requested. Had MRI brain and spine yesterday with significant improvement in the extensive leptomeningeal enhancement (see below) from the brain stem to the cauda equina. The FLAIR hyperintensity involving multiple cranial nerves has resolved. Still some areas of loculation in the prepontine area and in ventral thoracic area (images below), but diffuse lepto and some pachymeningeal enhancement throughout isbetter. There is a persistent intramedullary T2/STIR hyperintense signal in the thoracic cord T2-T3to T7-T8 Notes it was a long MRI procedure-- equivalent of 4 MRI sequences. Took an Ativan before hand whichhelped but started to wear off. Discussed how she would need a repeat MRI near the end of the course, but could be T spine area alone. Saw Neurosurgery today who checked shunt settings after MRI, no issues. Plan CT head 6 months. Fell around 04/11/23. Had been using a cane and was doing fine. Had multiple prior PT sessions. Left Leg suddenly went out under her and landed directly on her knee. Did not trip over anything. She had this complaint about the left leg before since she started therapy but had not had this serious of a fall before. The left leg was actually the stronger of her 2 legs. Immediately after the fall she was able to stand, but every time she took a step the left leg and knee gave out. Went to ED in [place], told she needed surgery. In the ED she was given crutches but pt said there was no way she could get around on crutches (since the left leg had been the stronger leg), and wanted a walker. [facility] to [facility] and after reviewing outside X rays told this could heal non-surgically. Dx'd with Left transverse patella fracture, and placed in a hinged knee brace, WBAT with brace locked in extension. Has appt with Ortho this afternoon. Has used Tylenol for pain, which has worked. Has N/V with percocet. Wt is increasing and at 142 lbs, appetite good. Previously her weight had been around 130 pounds. Prior to her cancer diagnosis and fungal meningitis she weighed around 195 pounds and at one point was down to 105 pounds. Discussed labs-- stable CBC, Scr, LFTs. Only abnormality has been HgA1C 7.7. She notes that before the infection, HgA1C between 6.5-6.8. In the last year DKA 3- 4x, and never had DKA in the past. She is type 1 DM and notes this says a lot about how well her parents took care of her as a child.. Has seen dictaphone transcriber in past 4 weeks, normal exam. Continues with numbness around both the knee areas in particular but also the thighs. This is not painful and she can still feel in the thigh regions as well as around both knees but it is definitelyless than other areas. Has the sensation that the knees feel puffy but says they are not really puffy There is also an area of partial numbness on the upper back around the area of the incision that is similar; she can feel everything when touched there but the sensation is less than other areas of the back. This matches up with the MRI of the T spine. Otherwise she is tolerating the posaconazole very well without any noticeable side effects. MEDICATIONS: Current Outpatient Medications Medication Sig posaconazole DR (NOXAFIL) 100 mg tablet Posaconazole (Noxafil) 300 mg Susp,Delayed Release For Recon Active 300 MG PO Daily August 08, 2022 12:00am (Patient not taking: Reported on 04/17/2023) metoprolol succinate ER (TOPROL XL) 100 mg Take 1 tablet by mouth every 12 hours 6am/6pm. posaconazole DR (NOXAFIL) 100 mg tablet Take 3 tablets by mouth once daily. pantoprazole DR (PROTONIX) 40 mg tablet Take 1 tablet by mouth DAILY (6 AM). calcium carbonate (TUMS) 500 mg chew Take 1 tablet by mouth three times daily as needed. (Patient not taking: Reported on 05/10/2023) insulin lispro (HUMALOG U-100 INSULIN) 100 unit/mL injection Inject 0-5 units subcutaneously at bedtime. <110 Give 0 units 111-150 Give 0 units 151-200 Give 1 unit 201-250 Give 2 units 251-300 Give 3 units 301-350 Give 4 units 351-400 Give 5 units >400 give 5units and notify provider. glucagon (BAQSIMI) 3 mg/actuation nasal spray Use 1 [place] in the nose as needed. acetaminophen (TYLENOL) 325 mg tablet Take 2 tablets by mouth every 6 hours as needed for pain. L.acid-L.casei-B.bif-B.mary beth-FOS (PROBIOTIC BLEND) 2 billion cell-50 mg cap Take 1 capsule by mouth once daily. (Patient not taking: Reported on 04/17/2023) fexofenadine (ALESSIO) 180 mg tablet Take by mouth. PRN ferrous sulfate 325 mg (65 mg iron) tablet Take 1 tablet by mouth every other day. (Patient not taking: Reported on 04/17/2023) No current facility-administered medications for this visit. PHYSICAL EXAM PSYCHIATRIC: looks well, ambulatory on her own. Oriented x 3, appropriate affect, SKIN: patchy brawny erythema on cheeks with some pink papules c/w rosacea, improved H: no lesions. GEOLOGICAL ENGINEERING TEACHER shunt palpable along its track and nontender EYES: PERRL EOMI no scleral icterus, no conjunctivitis ENT: no oral lesions NECK: no meningismus RESPIRATORY: symmetrical chest expansion and respiratory effort, clear to auscultation CARDIOVASCULAR: S1, S2, no murmurs, no gallops, no rubs, no edema ABDOMINAL: soft, non-distended, non-tender. Ileal conduit stoma in place, pink and no [arastomal hernia [place] with clear urine MUSCULOSKELETAL: no joint effusions [...] BICEPS TRICEPS DELTS Wrist Ext Wrist Flex Payment Rep R 5/5 5/5 5/5 5/5 5/5 5/5 [...] culture negative 07/02 CSF culture 07/02 NG [place] fungal PCR PCR from biopsy tissue both negative ([facility]) 06/28 CSF (labelled lumbar puncture but is from EVD): MNGS negative 06/27 CSF (labelled lumbar puncture but is from EVD): No growth, Crypto antigen negative 06/26 OR cultures Dural/subdural itradural thoracic lesion Tissue: gram stain negative. NGTD Wound culture: gram stain negative. NGTD AFB smear no organsims. Fungal: smear: no fungus seen [place] bacterial, fungal and AFB PCRs: negative (entire [...] on the AFB or gram stain sections. RADIOLOGY MRI brain, C-T-L spine 05/09/23: Interval decreased size of the peripherally enhancing collection in the interpeduncular, prepontine and cerebellopontine angle cisterns compared to the prior MRI. 05/09/23: T1 fl3d ax 18, 64 MRI 07/07/22, T1 fl3d, 41, 116 Near complete resolution of leptomeningeal enhancement involving the prepontine cistern and cerebellopontine angle cisterns, along the surface of the sabra and medulla compared to prior exam. No new or progressive pathologic enhancement. 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 Ventricular interstitial edema compared to the prior exam. Right frontal approach ventriculostomy shunt catheter is present. Interval improvement in diffuse abnormal leptomeningeal and pachymeningeal intradural enhancement throughout the cervical, thoracic and lumbar spine compared to the prior MRI 07/07/2022 with residual decreased patchy enhancement in the thoracic and lumbar spine. Patchy residual enhancement along the cauda equina nerve roots and ventral thecal sac in the lumbar spine, improved. Persistent abnormal intramedullary T2/STIR hyperintense signal in the thoracic cord with slight increased caudal extension from T2-T3 to T7-T8 compared to prior exam. Persistent deformity and expansion of the cord at these levels. Unchanged loculated arachnoid collection along the ventral lower cervical and upper thoracic spine with displacement of the cervical thoracic cord compared to prior exam. 05/09/23 SAG T1 ASIF, 7, 8 T2 tirm sag bone 8,8 07/07/22 SAG T1 TSSE 43, 8 Postoperative findings of dorsal decompression at T5-T6 with involution of the previously seen postoperative collection in the laminectomy defect and resolution of mass effect. Unchanged chronic compression fracture of T5 without bony retropulsion or canal stenosis. No significant canal or foraminal stenoses in the cervical, thoracic or lumbar spine. Cervical Anatomic Variant: None. Assume 7 cervical vertebrae with counting from the craniocervical junction. Anatomic Thoracic/Lumbar Variant: None. L4-5 is considered the level of the iliac crest and assume there are 5 lumbar-type vertebrae. ASSESSMENT: 57 year old woman with history [...] in DKA - 05/29/22 MRI brain from [facility] with leptomeningeal enhancement, communicating hydrocephalus - 06/07/22 MRI spine with diffuse LMD throughout spinal cord and cauda equina with loculated CSF in anterior thecal sac at C7-T3 with posterior displacement of cord and cord compression. T4-9 intramedullary hyperintensity suggesting cord edema due to compression superiorly - Course complicated by unsuccessful LP attempts at [facility] then transferred to [facility] - s/p cisternal tap 06/16/22 with limited [...] with fungal hyphae confirmed on multiple sections. [place] PCR and cultures all negative, including the tissue block in its entirety sent for universal fungal PCR and negative - CSF 06/28/22 negative on Next Gen sequencing - posaconazole started 06/29/22 - s/p GEOLOGICAL ENGINEERING TEACHER shunt on 07/10.and improving MS since then. - small subdural hygromas over frontal convexities on CT 08/16/22, shunt settings adjusted - facial rash in September 2022, mainly the malar area, a few spots on the forehead. Dx'd with rosacea by PCP and started on metronidazole gel, improved - sacral area ulcer, saw wound care at [facility]. Rx'd with medical honey gel and silicone [...] She continues on empiric oral posaconazole about 10+ months now (start 06/29/22) and is stable. MRI scan shows significant improvement in the leptomeningeal enhancement throughout the brainstem and entire cord. The area of enhancing fluid centered in the prepontine cistern is smaller. There is stillsome CSF loculation in the thoracic area ventrally with some cord displacement. This is at the level of the surgical site. There is a corresponding T2/FLAIR intramedullary signal in the cord at that level that probably is a chronic cord injury. Her neuro exam had improved, and seems to have plateaued over recent months. Has some chronic balance problems and various areas of sensory loss. Neuro exam shows abnormal Romberg (unable to stand feet together with eyes OPEN), balance deficits, some decreased sensation upper back region (around T5) and patchy areas both anterolateral thighs. MS is at baseline. She had been ambulatory with a canebefore her fall in late Mar 2023, improving wt, and overall motor strength. Had a set back with thefall and left patellar fracture, but is coming along with conservative therapy. She is on posaconazole which has broad anti-mold activity including mucorales (could not R/O Zygomycetes completely based on morphology, and multiple negative fungal cultures/PCR). Although morphologically the organisms looked more like aspergillus, even zygomycetes such as mucorales spp can be mistaken for aspergillus. Mucor has been a consideration since the infection started in the setting of DKA x 3. The downside of posaconazole is lower DIRECTOR PUBLIC penetration than voriconazole, but voriconaole has no activity against mucor. Will continue with posaconazole, given clinical and MRI improvement. PLAN: - Continue posaconazole 300 mg daily for another 6 months - will need another prior authorization - Will check CBC, CMP, posaconazole trough level, CRP, WSR - Will plan on MRI cervical-thoracic spine only October 2023, to help decide length of therapy of posaconazole - FU 2 months Jamie Mccarty MD May 10, 2023 I spent a total of 72 minutes on the date of the service which included preparing to see the patient, review of multiple MRI scans, [id number] patient care, completing clinical documentation, obtaining and/or reviewing separately obtained history, performing a medically appropriate examination, counseling and educating the patient/family/caregiver, ordering medications, tests, or procedures, independently interpreting results (not separately reported), communicating results to the patient/family/caregiver, and care coordination (not separately reported) documented in this encounterThe [facility] System01-10-2024 Evaluation note* Encounter Date Diagnosis Assessment Notes Treatment Notes Treatment Clinical Notes Apr, Closed nondisplaced transverse fracture of left patella with routine healing, subsequent encounter (ICD-10 - S82.035D) Continue wearing straight leg splint. WBAT w/ use of walker for stability. Fall precautions f/u Orthopedics - plan is conservative treatment Apr,laustrophobia (ICD-10 - F40.240)Ativan for MRI procedure Instructed to take one an hour prior to the procedure and repeat at time of procedure if needed. Apr,rimary hypertension (ICD-10 - I10)This patient is instructed to consume a healthy, low-fat, low-salt diet. They are also encouraged to continue exercise to achieve/maintain a normal BMI. Added Lisinopril 4moms Other [id number] History of Present illness Narrative* Jamie Mccarty MD - 03/19/2023 1:00 PM EST Images [...] performed and she was transferred to [facility]. She was found to have DKA. A CT head showed hydrocephalus with MRI on May 29 showing multiple enhancement in the anterior sabra, medulla, and in the spine at the level of C7-T3 and L1-S2. Multiple taps were performed and were unsuccessful. A GEOLOGICAL ENGINEERING TEACHER shunt was placed and patient underwent a [...] lobes (8 mm). LFTs 08/16 normal . GEOLOGICAL ENGINEERING TEACHER shunt was adjusted from 4 to 7 Posaconazole level 2.4 on 08/21/22 Developed a facial rash in September 2022, mainly the malar area, a few spots on the forehead. 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 She was seeing wound care at [facility] for her sacral area ulcer. Rx'd with [...] cytology. Continue surveillance imaging q 6 months. [place] remains in place. ID clinic 01/15/23, doing fairly well overall, tolerating posaconazole. Strength improving and ambulatory, using a cane PRN. No GEOLOGICAL ENGINEERING TEACHER shunt issues. Balance has improved but still [...] concerned that she may have disrupted her GEOLOGICAL ENGINEERING TEACHER shunt. She had no specific pain over [...] she has had a spike in sugars [id number] but generally has been well controlled using her insulin pump. She will be seeing endocrinologylater this week. States that she has not had a hemoglobin A1c drawn and will do so today. She has had no vision problems. Goes to the dictaphone transcriber every 3 months and has an appointment [...] (BAQSIMI) 3 mg/actuation nasal spray Use 1 [place] in the nose as needed. acetaminophen (TYLENOL) [...] papules c/w rosacea, improved H: no lesions. GEOLOGICAL ENGINEERING TEACHER shunt palpable along its track and nontender EYES: PERRL EOMI no scleral icterus, no conjunctivitis ENT: no oral lesions NECK: no meningismus RESPIRATORY: symmetrical chest expansion and respiratory effort, clear to auscultation CARDIOVASCULAR: S1, S2, no murmurs, no gallops, no rubs, no edema ABDOMINAL: soft, non-distended, non-tender. Ileal conduit stoma in place, pink and no [arastomal hernia [place] with clear urine MUSCULOSKELETAL: no joint effusions [...] BICEPS TRICEPS DELTS Wrist Ext Wrist Flex Payment Rep R 5/5 5/5 5/5 5/5 5/5 5/5 [...] culture negative 07/02 CSF culture 07/02 NG [place] fungal PCR PCR from biopsy tissue both negative ([facility]) 06/28 CSF (labelled lumbar puncture but is from EVD): MNGS negative 06/27 CSF (labelled lumbar puncture but is from EVD): No growth, Crypto antigen negative 06/26 OR cultures Dural/subdural itradural thoracic lesion Tissue: gram stain negative. NGTD Wound culture: gram stain negative. NGTD AFB smear no organsims. Fungal: smear: no fungus seen [place] bacterial, fungal and AFB PCRs: negative (entire [...] in DKA - 05/29/22 MRI brain from [facility] with leptomeningeal enhancement, communicating hydrocephalus - 06/07/22 MRI spine with diffuse LMD throughout spinal cord and cauda equina with loculated CSF in anterior thecal sac at C7-T3 with posterior displacement of cord and cord compression. T4-9 intramedullary hyperintensity suggesting cord edema due to compression superiorly - Course complicated by unsuccessful LP attempts at [facility] then transferred to [facility] - s/p cisternal tap [...] with fungal hyphae confirmed on multiple sections. [place] PCR and cultures all negative, including the tissue block in its entirety sent for universal fungal PCR and negative - CSF 06/28/22 negative on Next Gen sequencing - posaconazole started 06/29/22 - s/p GEOLOGICAL ENGINEERING TEACHER shunt on 07/10.and improving MS since then. - small subdural hygromas over frontal convexities on CT 08/16/22, shunt settings adjusted - facial rash in September 2022, mainly the malar area, a few spots on the forehead. Dx'd with rosacea by PCP and started on metronidazole gel, improved - sacral area ulcer, saw wound care at [facility]. Rx'd with medical honey gel and silicone [...] me know - FU 6 weeks Jamie Mccarty MD March 19, 2023 I spent a total of 65 minutes on the date of the service which included preparing to see the patient, [id number] patient care, completing clinical documentation, obtaining and/or reviewing separately obtained history, performing a medically appropriate examination, counseling and educating the pat ient/family/caregiver, ordering medications, tests, or procedures, communicating with other HCPs (not separately reported), independently interpreting results (not separately reported), communicatingresults to the patient/family/caregiver, and care coordination (not separately reported) documented in this encounterThe [facility] System12-01-2023 History general Narrative - Reported* Type Description Date Medical History DM 1 Medical HistoryOBESITYMedical HistoryASTHMAMedical HistoryLeft Patella Fx 03/2023Surgical HistoryORIF R ANKLE [id number] HistoryRIGHT OOPHERECTOMY FOR CYSTSurgical HistoryT5 intradural bx and placement of EV Surgical HistoryVP shunt placementHospitalization HistoryFOR SURGERIES 4moms Other 11-17-2023 Evaluation note* Encounter Date Diagnosis Assessment Notes Treatment Notes Treatment Clinical Notes Feb, Acute non-recurrent maxillary si nusitis (ICD-10 - J01.00) Will tx tody for [...] understanding and is agreeable to treatment plan. Feb,Laryngitis (ICD-10 - J04.0)Symptoms of laryngitis are most often caused by viruses. Salt water gargles may help with discomfort. TFollow up if symptoms persist or worsen. Patient verbalized understanding and agreement with treatment plan. 4moms Other 10-05-2023 Evaluation note* Encounter Date Diagnosis Assessment Notes Treatment Notes Treatment Clinical Notes Jan, Type 1 diabetes alysia itus with ketoacidosis without coma (ICD-10 - E10.10) [...] Microalbumin, Dilated eye exam and Foot exam [facility], subsequent (ICD-10 - Z00.00) [...] reviewed and amended by provider signed below. Jan,Elevated cholesterol (ICD-10 - E78.00)Instructed on diet and exercise with continued statin therapy.Discussed the beneficial effects of lo wering cholesterol in reducing the risk for cerebrovascular and cardiovascular disease. Jan,rimary hypertension (ICD-10 - I10)This patient is instructed to consume a healthy, low-fat, low-salt diet. They are also encouraged to continue exercise to achieve/maintain a normal BMI. Jan,astroesophageal reflux disease with esophagitis without hemorrhage (ICD-10 - K21.00)Diet instructions: Smaller portions, avoid eating and laying flat, avoid eating or drinking prior to bedtime. Weight loss. 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 Jan,Menopause (ICD-10 - Z78.0)Ca and Vit D supplements, Weight bearing exercises. Jan,Hordeolum externum of right lower eyelid (ICD-10 - H00.012)Warm compresses, gentle massage, begin antibiotics 4moms Other 10-02-2023 History of Present illness Narrative* Jamie Mccarty MD - 01/15/2023 1:32 PM EDT Images [...] performed and she was transferred to [facility]. She was found to have DKA. A CT head showed hydrocephalus with MRI on May 29 showing multiple enhancement in the anterior sabra, medulla, and in the spine at the level of C7-T3 and L1-S2. Multiple taps were performed and were unsuccessful. A GEOLOGICAL ENGINEERING TEACHER shunt was placed and patient underwent a [...] lobes (8 mm). LFTs 08/16 normal . GEOLOGICAL ENGINEERING TEACHER shunt was adjusted from 4 to 7 Posaconazole level 2.4 on 08/21/22 Developed a facial rash in September 2022, mainly the malar area, a few spots on the forehead. 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 She was seeing wound care at [facility] for her sacral area ulcer. Rx'd with [...] cytology. Continue surveillance imaging q 6 months. [place] remains in place. Currently: She continues to do well overall. Her strength is improving overall and she is ambulatory. Uses a cane for safety but also walks some without the cane. She has had no falls. No problems with her GEOLOGICAL ENGINEERING TEACHER shunt, and no tenderness over the shunt [...] have been well controlled. She sees a program director/morning show host locally for her type 1 diabetes MEDICATIONS: [...] (BAQSIMI) 3 mg/actuation nasal spray Use 1 [place] in the nose as needed. acetaminophen (TYLENOL) [...] dilated vessels, c/w rosacea H: no lesions. GEOLOGICAL ENGINEERING TEACHER shunt palpable along its track and nontender EYES: PERRL EOMI no scleral icterus, no conjunctivitis ENT: no oral lesions NECK: no meningismus RESPIRATORY: symmetrical chest expansion and respiratory effort, clear to auscultation CARDIOVASCULAR: S1, S2, no murmurs, no gallops, no rubs, no edema ABDOMINAL: soft, non-distended, non-tender. Ileal conduit stoma in place, pink and no [arastomal hernia [place] with clear urine MUSCULOSKELETAL: no joint effusions [...] BICEPS TRICEPS DELTS Wrist Ext Wrist Flex Payment Rep R 5/5 5/5 5/5 5/5 5/5 5/5 [...] Lymph 1.00 - 4.00 k/uL 0.88 (L) Tama% % 8.6 Abs Tama <0.87 k/uL 0.35 Eosin% % 1.0 Abs [...] 106 MICROBIOLOGY: 07/02 CSF culture 07/02 NG [place] fungal PCR PCR from biopsy tissue are both negative ([facility]) 06/28 CSF (labelled lumbar puncture but is from EVD): MNGS negative 06/27 CSF (labelled lumbar puncture but is from EVD): No growth, Crypto antigen negative 06/26 OR cultures Dural/subdural itradural thoracic lesion Tissue: gram stain negative. NGTD Wound culture: gram stain negative. NGTD AFB smear no organsims. Fungal: smear: no fungus seen [place] bacterial, fungal and AFB PCRs: negative (entire [...] in DKA - 05/29/22 MRI brain from [facility] with leptomeningeal enhancement, communicating hydrocephalus - 06/07/22 MRI spine with diffuse LMD throughout spinal cord and cauda equina with loculated CSF in anterior thecal sac at C7-T3 with posterior displacement of cord and cord compression. T4-9 intramedullary hyperintensity suggesting cord edema due to compression superiorly - Course complicated by unsuccessful LP attempts at [facility] then transferred to [facility] - s/p cisternal tap [...] with fungal hyphae confirmed on multiple sections. [place] PCR and cultures all negative, including the tissue block in its entirety sent for universal fungal PCR and negative - CSF 06/28/22 negative on Next Gen sequencing - posaconazole started 06/29/22 - s/p GEOLOGICAL ENGINEERING TEACHER shunt on 07/10.and improving MS since then. [...] per Urology - FU 2 months Jamie Mccarty MD January 15, 2023 documented in this encounterThe Metrohealth System09-27-2023 Miscellaneous Notes* Telephone Encounter - Zarina Norton RN - 01/10/2023 10:10 AM EDT Spoke with patient's medical supplier - [employer] ([phone]). They can only send 2 night time drainage bags per month due to patient's insurance coverage. Spoke with patient and relayed message to her. Offered options of this office will supply bags at her office visits if she needs them. Also aware that bags may be purchased on [employer]. documented in this encounterThe Metrohealth System09-26-2023 History of Present illness Narrative* Peterson Gonsalez MD - 01/09/2023 10:20 AM EDT [facility] ESTABLISHED PATIENT OFFICE [...] (7Fr x 24cm JJ) 12/16/[address] Montez and myself. 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 Seen 05/02/2022 where she reported continued weight loss (105 lbs down from 195 prior to surgery). Has seen a sap portal architect as well as PT. 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 Extensive work-up was performed, including multiple LPs, meningeal biopsy (positive for fungal hyphae), GEOLOGICAL ENGINEERING TEACHER shunt placement with clinical improvement with this [...] 01/09/2022 7.40 7.35 - 7.45 Final Specific Railroad, Ur Date Value Ref Range Status 06/12/2022 [...] (BAQSIMI) 3 mg/actuation nasal spray Use 1 [place] in the nose as needed. acetaminophen (TYLENOL) [...] which included preparing to see the patient, [id number] patient care, completing clinical documentation, and obtaining [...] care. Peterson Gonsalez MD documented in this encounterThe Metrohealth System09-11-2023 History of Present illness Narrative* Carolyn Echevarria, RT(R) - 12/25/2022 10:15 AM EDT Radiology Service Progress Note PATIENT NAME: Chikis Tobar DATE OF SERVICE: December 25, 2022 TIME: 10:56 AM PATIENT IDENTITY VERIFICATION COMPLETED USING TWO (2) IDENTIFIERS: Name and Date of confirmedby patient verbally. FALL SCREENING: Has the patient had 2 falls in the last year or 1 fall with injury or currently using an Ambulatory Assistive Device (Walker, Cane, Wheelchair, Crutches, etc.)? No PATIENT GENDER DATA: Male PATIENT RELEVANT IMPLANT DATA REVIEWED: Not Applicable RADIOLOGY DEPARTMENT: CT; Exam(s) Completed: Chest and Urogram PERIPHERAL IV DATA: Site assessment: Clean,Dry and Intact, Site disposition Discontinued SIGNED BY: RT Lisa(R) December 25, 2022 10:56 AM * Marlena Anaya RN - 12/25/2022 10:15 AM EDT Radiology Service Progress Note DATE OF SERVICE: December 25, 2022 TIME: 11:00 AM PATIENT WEIGHT: 120LBS PATIENT IDENTITY VERIFICATION COMPLETED USING TWO (2) STANDARD IDENTIFIERS: Name and Date of confirmed by patient verbally. FALL SCREENING: Has the patient had 2 falls in the last year or 1 fall with injury or currently using an Ambulatory Assistive Device (Walker, Cane, Wheelchair, Crutches, etc.)? No PATIENT GENDER DATA: Female. status: : No status: NO. ALLERGIES: Reviewed and unchanged CONTRAST ALLERGY: No EXAM: CT -CONTRAST INDUCED NEPHROPATHY RISK FACTORS: Not applicable CREATININE: Creatinine Date Value Ref Range Status 11/15/2022 0.59 0.58 - 0.96 mg/dL Final 08/21/2022 0.62 0.58 - 0.96 mg/dL Final 07/21/2022 0.43 (L) 0.58 - 0.96 mg/dL Final Estimated Glomerular Filtration Rate Date Value Ref Range Status 11/15/2022 106 >=60 mL/min/1.73m Final Comment: Estimated Glomerular Filtration Rate (eGFR) is calculated using the 2020 CKD-EPI creatinine equation. This equation utilizes serum creatinine, sex, and age as parameters. The creatinine assay has traceable calibration to isotope dilution- mass spectrometry. Refer to KDIGO guidelines for clinical interpretation. In patients with unstable renal function, e.g. those with acute kidney injury, the eGFRmay not accurately reflect actual GFR. eGFR- Date Value Ref Range Status 05/25/2021 >60 Final P.O.C.T. RESULTS: N/A December 25, 2022 TREATMENT: N/A IV SITE: Ambulatory: A peripheral IV was started in the Left antecubital site with a Angio cath: 20gauge. IV SITE APPEARANCE: Clean,Dry and Intact SIGNATURE: Marlena Anaya RN PATIENT NAME: Chikis Tobar DATE: December 25, 2022 TIME: 11:00 AM documented in this encounterThe Metrohealth System08-31-2023 History of Present illness Narrative* Marlene Cordero PA-C - 12/14/2022 2:00 PM EDT CC: GEOLOGICAL ENGINEERING TEACHER shunt f/u HPI: Mrs Chikis Tobar comes [...] cane for safety. She does have a trujillo in place but denies new onset symptoms [...] seen for hospital follow up. Chikis underwent GEOLOGICAL ENGINEERING TEACHER shunt placement on 07/10/22 as inpatient. Follow [...] she could take time off from treatment. Trujillo in place with no new onset neurologic symptoms or complaints. CT brain shows minimal interval decrease in size of ventricular system with slight decrease in size of small bifrontal convexity subdural hygromas. Warning signs discussed in detail. Plan for follow up with CT brain in 4-6 months Plan: Shunt information Shunt type: Certas Initial settin New settin Marlene Cordero PA-C documented in this encounterThe Metrohealth System08-02-2023 History of Present illness Narrative* Rudy Hanson RT(R) - 11/15/2022 10:15 AM EDT Radiology Service Progress Note PATIENT NAME: Chikis Tobar DATE OF SERVICE: November 15, 2022 TIME: 10:26 AM PATIENT IDENTITY VERIFICATION COMPLETED USING TWO [...] IV DATA: Not applicable SIGNED BY: RT Erich(R) November 15, 2022 10:26 AM documented in this encounterCleveland [id number] Instructions* Patient Instructions* Kim Lynch MD - 10/18/2022 10:45 AM EDT - Get blood work at your local [facility] lab , 1 hour before taking your posaconazole - See you in a few months documented in this encounterThe Metrohealth System07-05-2023 History of Present illness Narrative* Jamie Mccarty MD - 10/18/2022 10:00 AM EDT INFECTIOUS [...] performed and she was transferred to [facility]. She was found to have DKA. A CT head showed hydrocephalus with MRI on May 29 showing multiple enhancement in the anterior sbara, medulla, and in the spine at the level of C7-T3 and L1-S2. Multiple taps were performed and were unsuccessful. A GEOLOGICAL ENGINEERING TEACHER shunt was placed and patient underwent a [...] (BAQSIMI) 3 mg/actuation nasal spray Use 1 [place] in the nose as needed. acetaminophen (TYLENOL) [...] taps were performed and were unsuccessful. A GEOLOGICAL ENGINEERING TEACHER shunt was placed and patient underwent a meningeal biopsy which pathology showed hyphae elements. PCR sent over multiple tissue samples and CSF next gen sequencing was negative and was negative. She is statuspost GEOLOGICAL ENGINEERING TEACHER shunt placement. Started on Posaconazole for broad mold coverage. - Continue posaconazole 300 mg daily for at least a year - Check Lfts, and posa trough asked patient to get labs drawn 1 hour before sge takes posa in a local lab -aim for MRI 1 years after treatment - Follow up with Dr Mccarty in [address] Mccarty SIGNATURE: Kim Lynch MD PATIENT NAME: Chikis [...] concur. 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 They are also encouraged to continue exercise to achieve/maintain a normal BMI. Sep,Elevated cholesterol (ICD-10 - E78.00)Instructed on diet and exercise with continued statin therapy.Discussed the beneficial effects of lo wering cholesterol in reducing the risk for cerebrovascular and cardiovascular disease. Sep,Mass of upper outer quadrant of right breast (ICD-10 - N63.11)No palpable mass, no skin retraction or nipple discharge Sep,Moderate protein-calorie malnutrition (ICD-10 - E44.0)Appetite and weight improving. Continue healthy diet, protein supplements. Sep,Transitional cell carcinoma, bladder (ICD-10 - C67.9)No s/s recurrence. f/u Urology Sep,hronic venous insufficiency (ICD-10 - I87.2)Avoid salt and elevate lower extremities, support stockings, inspect legs and feet daily for blisters and ulcerations. Sep,Insulin long-term use (ICD-10 - Z79.4) Sep,Ileostomy in place (ICD-10 - Z93.2) 4moms Other 06-01-2023 History of Present illness Narrative* Nivia Aguilar [...] IV DATA: Not applicable SIGNED BY: RT Renetta(R) September 14, 2022 3:00 PM documented in this encounterThe Metrohealth System05-31-2023 Progress note Author Marjorie Headley [facility] September 13, 2022 8:40amNote Date/TimeMay 2022 8:40am[place] [address] Wound Center Provider Note Signed Patient: Chikis Tobar MR#: [id number] : 1965 Acct:[id number] Age/Sex: 57 / F Copies to: DO Marjorie Goins APRN~ HPI Date of Visit Date of Visit: Date of Service: 09/13/2022 Time of Service: 08:39 Narrative HPI: 08/08/22 Chikis is a 57 year old female presenting to [facility] wound care program for an initial visit [...] week appt, hope to be healed at thatvisit Subjective Pain Sacrum: Pain Intensity: 0 Wound/Ulcer History When did wound start?: May 2022 Mode of Arrival/ Curber: Family Assistive Device Used Today: Walker Lives with:: Multiple Family Members Appetite Description: Within Normal Limits Who helps w/ dressing change?: Family Why Do You Need Help?: Can't Reach Ulcer Smoking Status: Never smoker [facility] Medical History (Updated 08/08/22 @ 13:43 [...] pen (Lantus Solostar U-100 Insulin) 18 unit subcutHS 08/08/22 [History Confirmed 08/08/22] pantoprazole 40 mg [...] Pressure Ulcer/Injury Staging: Stage 3 Bed Appearance: [place] and Yellow Percent of Wound Bed Granulated/Red: 95 Percent of Devitalized: 5 Length (cm): 0.4 Width (cm): 0.3 Depth (cm): 0.1 CM Sq: 0.120 Surrounding Tissue Appearance: [place] Surrounding Tissue Temp: Warm Drainage Amount: Scant [...] <Electronically signed by STEVEN Headley> 09/13/22 0840 [facility] Work Phone: [phone]) 901-736405-12-2023 Evaluation note* Encounter Date Diagnosis Assessment Notes Treatment Notes Treatment Clinical Notes August, Palpitation (ICD-10 - R00.2) 4moms Other 05-12-2023 History of Present illness Narrative* Marlene Cordero PA-C - 08/25/2022 9:11 AM EDT CC: 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 f/u HPI: Mrs Chikis Tobar comes [...] settin Marlene Cordero PA-C documented in this encounterThe Metrohealth System05-10-2023 Progress note Author Marjorie Headley [facility] August 23, 2022 2:49pmNote Date/TimeMay 2022 2:49pm[place] [address] Wound Center Provider Note Signed Patient: Chikis Tobar MR#: [id number] : 1965 Acct:[id number] Age/Sex: 57 / F Copies to: Juliette Berumen,DO Marjorie Headley APRN~ HPI Date of Visit Date of Visit: Date of Service: 08/23/2022 Time of Service: 14:48 Narrative HPI: 08/08/22 Chikis is a 57 year old female presenting to [facility] wound care program for an initial visit [...] wound start?: May 2022 Mode of Arrival/ Curber: Family Assistive Device Used Today: Walker Lives with:: Multiple Family Members Appetite Description: Within Normal Limits Who helps w/ dressing change?: Family Why Do You Need Help?: Can't Reach Ulcer Smoking Status: Never smoker [facility] Medical History (Updated 08/08/22 @ 13:43 [...] pen (Lantus Solostar U-100 Insulin) 18 unit subcutHS 08/08/22 [History Confirmed 08/08/22] pantoprazole 40 mg [...] Pressure Ulcer/Injury Staging: Stage 3 Bed Appearance: [place] and Yellow Percent of Wound Bed Granulated/Red: 10 Percent of Devitalized: 90 Length (cm): 0.8 Width (cm): 0.8 Depth (cm): 0.1 CM Sq: 0.640 Surrounding Tissue Appearance: [place] Surrounding Tissue Temp: Warm Drainage Amount: Moderate [...] Signed By: <Electronically signed by STEVEN Headley> 08/23/221448 [facility] Work Phone: 1(513) 627-389705-10-2023 Miscellaneous Notes* Telephone Encounter - Marlene Cordero PA-C - 08/23/2022 10:00 AM EDT Call to Chikis to discuss hygroma on CT brain. She agreed to come for office visit on Sunday to reduce shunt setting tot 7. Marlene Cordero PA-C documented in this encounterThe Metrohealth System05-04-2023 Evaluation note* Encounter Date Diagnosis Assessment Notes Treatment Notes Treatment Clinical Notes August, Claustrophobia (ICD-10 - F40.240 ) 4moms Other 05-04-2023 Miscellaneous Notes* Telephone Encounter - Ami Lopez - 08/17/2022 10:12 AM EDT Patient called requesting a sedative medication for her to get her MRI done, states because she is claustrophobic. The pharmacy listed is where she's like her medication sent. Thank you, Ami Lopez documented in this encounterThe Metrohealth System05-03-2023 Evaluation note* Encounter Date Diagnosis Assessment Notes Treatment Notes Treatment Clinical Notes August, Mass of upper outer quadrant of right breast (ICD-10 - N63.11) 4moms Other 05-03-2023 History of Present illness Narrative* Peterson Gonsalez MD - 08/16/2022 12:45 PM EDT [facility] VIRTUAL VISIT REASON [...] (7Fr x 24cm JJ) 12/16/[address] Montez and myself. 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 Last seen 05/02/2022 where she reported continued weight loss (105 lbs down from 195 prior to surgery). Has seen a sap portal architect as well as PT. 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 Extensive work-up was performed, including multiple LPs, meningeal biopsy (positive for fungal hyphae), GEOLOGICAL ENGINEERING TEACHER shunt placement with clinical improvement with this [...] 01/09/2022 7.40 7.35 - 7.45 Final Specific Railroad, Ur Date Value Ref Range Status 06/12/2022 [...] (BAQSIMI) 3 mg/actuation nasal spray Use 1 [place] in the nose as needed. acetaminophen (TYLENOL) [...] which included preparing to see the patient, [id number] patient care, completing clinical documentation, counseling and educating the patient/family/caregiver, ordering medications, tests, or procedures, and communicating with other HCPs (not separately reported). I have communicated my name and active licensure. The patient's identity and physical location were verified at the time of this visit. Either the patient or their legal billing customer service representative has been informed of the risks and benefits of -- and alternatives to -- treatment througha remote evaluation and consents to proceed with the evaluation remotely. By signing my name below, I, Hector Fisher, attest that this documentation has been prepared under the direction and in the presence of Dr. Gonsalez Electronically signed, Hector Fisher Scribcarmine STAFF PHYSICIAN NOTE OF PERSONAL INVOLVEMENT IN CARE The above noted history, physical, assessment and plan were reviewed with the provider and criticalportions of the H&P were confirmed. I evaluated and examined the patient and agree with the plan above and provided direct supervision of the above provider during this patient's care. Peterson Gonsalez MD August 16, 2022 documented in this encounterThe Metrohealth System05-03-2023 History of Present illness Narrative* Carolyn Echevarria RT(R) - 08/16/2022 8:45 AM EDT Radiology Service Progress Note PATIENT NAME: Chikis Tobar DATE OF SERVICE: August 16, 2022 TIME: 9:00 AM PATIENT IDENTITY VERIFICATION COMPLETED USING TWO [...] IV DATA: Not applicable SIGNED BY: RT Lisa(R) August 16, 2022 9:00 AM documented in this encounterThe Metrohealth System04-28-2023 Evaluation note* Encounter Date Diagnosis Assessment Notes Treatment Notes Treatment Clinical Notes Jul, Type 1 diabetes mellitus with hy perglycemia (ICD-10 - E10.65) This patient is following [...] which are reviewed at the office visit. Jul,Elevated cholesterol (ICD-10 - E78.00)Instructed on diet and exercise with continued statin therapy.Discussed the beneficial effects of lo wering cholesterol in reducing the risk for cerebrovascular and cardiovascular disease. Jul,HTN (hypertension) (ICD-10 - I10)This patient is instructed to consume a healthy, low-fat, low-salt diet. They are also encouraged to continue exercise to achieve/maintain a normal BMI. 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 Continue systemic antifungal treatment No back pain noted No fever or chills Jul,Moderate protein-calorie malnutrition (ICD-10 - E44.0)Good appetite. Healthy high protein, fiber diet Jul,Hx of diabetes with ketoacidosis (ICD-10 - Z86.39)Close monitoring of home BS. Healthy diet Continue basal insulin along w/ meal time sliding scale coverage 4moms Other 04-25-2023 Progress note Author Marjorie Headley [facility] August 08, 2022 1:48pmNote Date/TimeApril 2022 1:48pm[place] [address] Wound Center Provider Note Signed Patient: Chikis Tobar MR#: [id number] : 1965 Acct:[id number] Age/Sex: 57 / F Copies to: DO Marjorie Goins, PROCUREMENT DIRECTOR~ HPI Date of Visit Date of Visit: Date of Service: 08/08/2022 Time of Service: 13:39 Narrative HPI: 08/08/22 Chikis is a 57 year old female presenting to [facility] wound care program for an initial visit [...] wound start?: May 2022 Mode of Arrival/ Curber: Family Assistive Device Used Today: Walker Lives with:: Multiple Family Members Appetite Description: Within Normal Limits Who helps w/ dressing change?: Family Why Do You Need Help?: Can't Reach Ulcer Smoking Status: Never smoker [facility] Medical History (Updated 08/08/22 @ 13:43 [...] pen (Lantus Solostar U-100 Insulin) 18 unit subcutHS 08/08/22 [History Confirmed 08/08/22] pantoprazole 40 mg [...] Pressure Ulcer/Injury Staging: Stage 3 Bed Appearance: [place] and Yellow Percent of Wound Bed Granulated/Red: 10 Percent of Devitalized: 90 Length (cm): 1.5 Width (cm): 1.1 Depth (cm): 0.1 CM Sq: 1.650 Surrounding Tissue Appearance: [place] Surrounding Tissue Temp: Warm Drainage Amount: Moderate [...] <Electronically signed by STEVEN Headley> 08/08/22 1348 [facility] Work Phone: 1(913) 281-466204-21-2023 Evaluation note* Encounter Date Diagnosis Assessment Notes Treatment Notes Treatment Clinical Notes Jul, Hyperglycemia due to type 1 diab etes mellitus (ICD-10 - E10.65) 4moms Other 03-02-2023 History general Narrative - Reported* Type Description Date Medical History DM 1 Medical HistoryOBESITYMedical HistoryASTHMASurgical HistoryORIF R ANKLE FRACTURE 2000Surgical HistoryRIGHT OOPHERECTOMY FOR CYSTSurgical HistoryT5 intradural bx and placement of EVSurgical HistoryVP shunt placement Hospitalization HistoryFOR SURGERIES 4moms Other 03-01-2023 History general Narrative - Reported* Type Description Date Medical History DM 1 Medical HistoryOBESITYMedical HistoryASTHMASurgical HistoryORIF R ANKLE FRACTURE 2000Surgical HistoryRIGHT OOPHERECTOMY FOR CYSTSurgical HistoryRight frontal ventriculostomy06/2022Hospitalization HistoryFOR SURGERIES 4moms Other 02-23-2023 Miscellaneous Notes* Telephone Encounter - Mik Zapata MD - 06/08/2022 11:21 AM EST Hospital Medicine Transfer Received page for transfer request from [facility] to [facility]: Chikis Tobar is 57 year old female who presented with DKA and found down. She was initially intubated and treated with insulin drip in the ICU and eventually transferred to the regular floor. While she was being worked up at [facility] she was seen to have thoracic and lumbar lesion suspicious for malignancy. 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 She was seen by oncology and neurology at [facility] recommended transfer to tertiary care facility for further evaluation management. She has history of bladder cancer and has urostomy. Case was discussed with our neurosurgeon Dr. Godwin who agreed to see the patient at [facility] but wanted patient to be admitted under [...] Zapata MD 11:21 AM documented in this encounterThe Metrohealth System02-09-2023 Evaluation note* Encounter Date Diagnosis Assessment Notes Treatment Notes Treatment Clinical Notes May, Type 1 diabetes mellitus with hy perglycemia (ICD-10 - E10.65) This patient is following [...] staying w/ ISS coverage and Basal insulin. May,HTN (hypertension) (ICD-10 - I10)This patient is instructed to consume a healthy, low-fat, low-salt diet. They are also encouraged to continue exercise to achieve/maintain a normal BMI. May,Transitional cell bladder cancer (ICD-10 - C67.9)No s/s recurrence. f/u Urology May,Elevated cholesterol (ICD-10 - E78.00)Diet and exercise with continued statin therapy. May,Weight loss (ICD-10 - R63.4)Supplements daily May,Ileostomy in place (ICD-10 - Z93.2) May,Insulin long-term use (ICD-10 - Z79.4) May,OtherDiet and exercise with continued statin therapy. 4moms Other 01-17-2023 History of Present illness Narrative* Peterson Gonsalez MD - 05/02/2022 1:40 PM EST [facility] ESTABLISHED PATIENT OFFICE [...] (7Fr x 24cm JJ) 12/16/[address] Montez and myself. Her post-op course was complicated [...] her with increased calorie intake. Has jose sap portal architect, but has not followed up yet. She has been doing PT ordered with Dr. Montez. She does upper and lower body PT [...] 01/09/2022 7.40 7.35 - 7.45 Final Specific Railroad, Ur Date Value Ref Range Status 01/09/2022 [...] care, willplace consult. She has seen a sap portal architect, recommend she follow up with them as well. Will refer to stoma nurses to assess issues with ostomy appliance. History of volvulus s/p ex lap, reduction of volvulus, and right ureteral reimplantation Still with ongoing weight loss despite no evidence of SBO on imaging, per my review no suggestion of SMA syndrome. I will review with Dr. Montez, she is working with nutrition to improve oral intake but she is severely cachectic and may require further nutritional support to address this. Follow up with [facility] in 3 months. Repeat imaging in one year. I spent a total of 40 minutes on the date of the service which included preparing to see the patient, [id number] patient care, and completing clinical documentation. By [...] MD May 02, 2022 documented in this encounterThe Metrohealth System11-28-2022 History of Present illness Narrative* Dion Montez MD - 03/13/2022 3:43 PM EST Patient [...] She understands and agrees with this plan. Dion Monetz MD documented in this encounterThe Metrohealth System11-28-2022 Nurse Note* Savanah Castro MA - 03/13/2022 1:07 PM EST What is the reason for your visit today? Established patient presents for post op. Who is your referring physician? Are you having poor oral intake? NO Have you had unintentional weight loss of 15 lbs/7 Kg in the last 3-6 months? NO documented in this encounterThe Metrohealth System10-28-2022 History of Present illness Narrative* Dion Montez MD - 02/10/2022 4:50 PM EDT Returns [...] Follow-up in 1 month to assess progress. Dion Montez MD documented in this encounterThe Metrohealth System10-24-2022 History of Present illness Narrative* Dion Montez MD - 02/06/2022 1:45 PM EDT Patient [...] Second, we will set up appointment with [facility] endocrinology for her at her request. We will arrange follow-up hopefully for tube removal when she begins to tolerate more solid food. Dion Montez MD documented in this encounterThe Metrohealth System10-18-2022 Miscellaneous Notes* Telephone Encounter - Katiana Whitmore RN - 01/31/2022 3:[address] Montez recommends patient eat protein shakes and GI [...] is a clog. Will discuss with Dr. Montez and call her back. * Telephone Encounter - Katiana Whitmore RN - 01/31/2022 10:48 AM EDT Attempted to call. No answer or voicemail. * Telephone Encounter - Thi Rodriges Pss - 01/31/2022 10:05 AM EDT Patient called and left message regarding non functioning feeding tube return call to [phone] documented in this encounterThe Metrohealth System10-18-2022 Miscellaneous Notes* Telephone Encounter - Shelbi Pérez - 01/31/2022 2:57 PM EDT Spoke with patient regarding appointments, patient confirmed all appointments documented in this encounterThe Metrohealth System10-17-2022 History of Present illness Narrative* Peterson Gonsalez MD - 01/30/2022 10:00 AM EDT [facility] ESTABLISHED PATIENT OFFICE [...] (7Fr x 24cm JJ) 12/16/[address] Montez and myself. Her post-op course was complicated [...] 01/09/2022 7.40 7.35 - 7.45 Final Specific Railroad, Ur Date Value Ref Range Status 01/09/2022 [...] abx prophylaxis administered prior. Follow-up with Dr. Montez this afternoon. Will coordinate surveillance imaging after discussing with Dr. Montez, planning for April. I spent a total of 30 minutes on the date of the service which included preparing to see the patient, leoq-md-ifwz patient care, completing clinical documentation, and communicating [...] MD January 30, 2022 documented in this encounterThe Metrohealth System10-17-2022 Nurse Note* Zarina Norton RN - 01/30/2022 9:53 AM EDT [facility] 1 GM IM per order prior to stent removal. . Ileal conduit Ostomy appliance removed. Stent is visible. Stoma cleansed with dry sterile gauze. Sterile field created. Dr Gonsalez in to remove stent. Patient tolerated well. New appliance applied and attached to drainage tubing. documented in this encounterThe Metrohealth System10-14-2022 Miscellaneous Notes* Telephone Encounter - Shelbi Pérez - 01/27/2022 9:27 AM EDT Spoke to patient, reminder call for appointment on 01/30, patient confirmed appointment Called patient back, she is able to come at 9:30 on 01/30 documented in this encounterThe Metrohealth System10-07-2022 Miscellaneous Notes* Telephone Encounter - Greyson Ramirez - 01/20/2022 2:20 PM EDT PATIENT INFORMATION Record ID: [id number] Patient Name: [facility]: [facility] [place]: [facility] [place] Attending: Dion Montez Center: General Surgery INSTRUCTIONS SN to remind patient of next upcoming appointment date, time, location All Clear SURVEY INFORMATION Medical/Nurse Coordinate Measuring Machine Programmer: Greyson Patel 1. Your discharge instructions are [...] symptoms? (Standard Question) No documented in this encounterThe Metrohealth System10-05-2022 Miscellaneous Notes* Telephone Encounter - Marlena Muñoz Sec - 01/18/2022 10:29 AM EDT Spoke to patient confirmed OV with Dr. Gonsalez on 01/30 at [facility] and also the office visit with Dr. Dion Montez to follow at 3:40 pm. documented in this encounterThe Metrohealth System09-25-2022 History and physical note Author Jayashree Watts [facility] January 08, 2022 7:27pmNote Date/TimeSept2021 3:58pm[place] [address] Hospitalist H&P Signed Patient: Chikis Tobar MR#: [id number] : 1965 Acct:[id number] Age/Sex: 56 / F Adm Date: 2 Loc: Room: [address] [place] [address] Type: ADM IN Attending Dr: Jayashree Watts [...] a bladder resection with ileal conduit at [facility]. Per family she is cured of her disease. 3 days ago the patient was discharged from [facility] where she had open laparotomy due to twisted bowel . She went home and her blood sugars was over 500. Patient does have underlying history of diabetes type 1 and has insulin pump. She went to [facility] where she was treated. It seems like the patient was admitted to the hospital. On Sunday which is yesterday she went back home. However she was quite weak, confused, agitated. To the family she complained of lower back pain and abdominal pain. No reported nausea nor vomiting. She has not had bowel movement for 4 days. No reported shortnessof breath or cough. She does have insulin [...] nondistended, ileal conduit noted, draining clear urine, howeverabdomen is diffusely tender without rigidity without rebound [...] % (Auto) 8.6 % (.) 01/08/22 04:15 Tama % (Auto) 7.2 % (.) 01/08/22 04:15 Eos % (Auto) 0.2 % (.) 01/08/22 04:15 Baso % (Auto) 0.8 % (.) 01/08/22 04:15 Neut # (Auto) 11.3 x10E3/uL (1.8-7.7) H 01/08/22 04:15 Lymph # (Auto) 1.2 x10E3/uL (1.00-4.8) 01/08/22 04:15 Tama # (Auto) 1.0 x10E3/uL (0.0-0.8) H 01/08/22 [...] pH 7.5 (5.0-9.0) 01/08/22 05:08 Ur Specific Railroad 1.011 (1.001-1.030) 01/08/22 05:08 Urine Protein 30 [...] ileal conduit performed in April [address] [facility] [address] scan showed right-sided ureteral stent associated with hydronephrosis. I am not sure if it is chronic. We will get in touch with [facility]. But her urinalysis looks without bacteria howevershe has positive leukocyte esterase and white blood cell counts will cover with antibiotic therapy.Urine cultures pending. 3. Status post recent abdominal surgery, but it seems like she had small bowel obstruction at [facility], discharged only [address] [...] was made to transfer the patient to [facility] for further care. For now await urine cultures. Continue with Invanz. Documented By: Jayashree Watts MD 01/08/22 1551 Signed By: <Electronically signed by Jayashree Watts MD> 01/08/221926 [facility] Work Phone: 1(456) 353-294409-08-2022 Miscellaneous Notes* Telephone Encounter - Shelbi Pérez - 12/22/2021 9:28 AM EDT Tried calling patient with date for cysto, voicemail box not set up, mailed appointment reminder documented in this encounterThe Metrohealth System09-07-2022 History of Past illness Narrative* ProblemNoted DateResolved IotcNmapzxjxwro42/07/202209/ Zhiwvxsmznhzuljtj60/07/202209/mall bowel nouxznkaehs54/02/2022 2documented as of this encounter (statuses as of 01/07/2022) [facility]09-02-2022 Miscellaneous Notes* Telephone Encounter - Peterson Gonsalez [...] I have recommended she presents to the [facility] emergency department immediately for evaluation. I have communicated with the [facility] ER physicians to discuss her case. I have also discussed her case with Dr. Ildefonso Montez of General Surgery. We will plan to obtain labs and repeat CT abdomen pelvis upon arrival to the emergency department, may require surgical intervention this evening which I explained to her. She expressed understanding and will head to ED now. Peterson Gonsalez MD documented in this encounterThe Metrohealth System09-02-2022 History of Past illness Narrative* ProblemNoted DateResolved DateSmall bowel ogplklucxsh76/02/2022 2documented as of this encounter (statuses as of 12/22/2021) [address]02-2022 History of Past illness Narrative* ProblemNoted Date Resolved DateSmall bowel cnladfwqbjs902documented as of this encounter (statuses as of 01/18/2022) [address]02-2022 History of Past illness Narrative* ProblemNoted Date Resolved DateSmall bowel zglzqtdktbd552documented as of this encounter (statuses as of 01/20/2022) [address]02-2022 History of Past illness Narrative* ProblemNoted Date Resolved DateSmall bowel rnlllwwnvix512documented as of this encounter (statuses as of 01/27/2022) [address]02-2022 History of Past illness Narrative* ProblemNoted Date Resolved DateSmall bowel mwjdntuniiq812documented as of this encounter (statuses as of 01/31/2022) [address]02-2022 History of Past illness Narrative* ProblemNoted Date Resolved DateSmall bowel rthcahhuzwy452documented as of this encounter (statuses as of 01/31/2022) [address]02-2022 History of Past illness Narrative* ProblemNoted Date Resolved DateSmall bowel meccgbxawwl102documented as of this encounter (statuses as of 01/31/2022) [address]02-2022 History of Past illness Narrative* ProblemNoted Date Resolved DateSmall bowel pxqxumnvtpt712documented as of this encounter (statuses as of 02/02/2022) [address]02-2022 History of Past illness Narrative* ProblemNoted Date Resolved DateSmall bowel djrbzqzbbmm222documented as of this encounter (statuses as of 02/06/2022) [address]02-2022 History of Past illness Narrative* ProblemNoted Date Resolved DateSmall bowel aummjenkehw782documented as of this encounter (statuses as of 02/10/2022) [address]02-2022 History of Past illness Narrative* ProblemNoted Date Resolved DateSmall bowel urabpjmdvth022documented as of this encounter (statuses as of 03/13/2022) [address]02-2022 History of Past illness Narrative* ProblemNoted Date Resolved DateSmall bowel zxqrziqpuqe692documented as of this encounter (statuses as of 05/03/2022) [address]02-2022 History of Past illness Narrative* ProblemNoted Date Resolved DateSmall bowel qsycwushrjq432documented as of this encounter (statuses as of 06/08/2022) [address]02-2022 History of Past illness Narrative* ProblemNoted Date Resolved DateSmall bowel czlgqnhqpqu41besity02/16/2021 06/11/2022 Last Assessment & Plan: Body mass index is 32.12 kg/m . documented as of this encounter (statuses as of 07/20/2022) [facility] of Past illness Narrative* ProblemNoted Date Resolved DateSmall bowel iyjnlyaltuo80/02/202209/0391Prmghzj88/03/2021 06/11/2022 Last Assessment & Plan: Body mass index is 32.12 kg/m . documented as of this encounter (statuses as of 07/20/2022) [address]02-2022 History of Past illness Narrative* ProblemNoted Date Resolved DateSmall bowel zwaocsthjxj09/02/202209/3423Tjszxar04/03/2021 06/11/2022 Last Assessment & Plan: Body mass index is 32.12 kg/m . documented as of this encounter (statuses as of 08/17/2022) [address]02-2022 History of Past illness Narrative* ProblemNoted Date Resolved DateSmall bowel pmrsexxsxyn062Obesity02/16/2021 06/11/2022 Last Assessment & Plan: Body mass index is 32.12 kg/m . documented as of this encounter (statuses as of 08/17/2022) [facility] of Past illness Narrative* ProblemNoted Date Resolved DateSmall bowel oaddjjebbjz57/02/202209/8569Cgvsrle80/03/2021 06/11/2022 Last Assessment & Plan: Body mass index is 32.12 kg/m . documented as of this encounter (statuses as of 08/23/2022) [facility] of Past illness Narrative* ProblemNoted Date Resolved DateSmall bowel dajjiczprxp94/02/202209/6455Ohkyzfk15/03/2021 06/11/2022 Last Assessment & Plan: Body mass index is 32.12 kg/m . documented as of this encounter (statuses as of 08/25/2022) [address]02-2022 History of Past illness Narrative* ProblemNoted Date Resolved DateSmall bowel gtninxtatqw78/02/202209/1361Xjramxg01/03/2021 06/11/2022 Last Assessment & Plan: Body mass index is 32.12 kg/m . documented as of this encounter (statuses as of 09/21/2022) [facility] of Past [facility] Narrative* ProblemNoted Date Diagnosed DateResolved DateSmall bowel whtycqfwpxw36/02/202209/2Obesity Last Assessment & Plan: Body mass index is 32.12 kg/m . documented as of this encounter (statuses as of 10/24/2022) [address]02-2022 History of Past illness Narrative* ProblemNoted Date Diagnosed DateResolved DateSmall bowel wowlwvuocsf90besity Last Assessment & Plan: Body mass index is 32.12 kg/m . documented as of this encounter (statuses as of 11/24/2022) [address]02-2022 History of Past illness Narrative* ProblemNoted Date Diagnosed DateResolved DateSmall bowel leidbpxygtd46/02/202209/besity 02/16/ Last Assessment & Plan: Body mass index is 32.12 kg/m . documented as of this encounter (statuses as of 12/15/2022) [address]02-2022 History of Past illness Narrative* ProblemNoted Date Diagnosed DateResolved DateSmall bowel tgvvlxszure31/02/202209//2Obesity Last Assessment & Plan: Body mass index is 32.12 kg/m . documented as of this encounter (statuses as of 01/10/2023) [address]02-2022 History of Past illness Narrative* ProblemNoted Date Diagnosed DateResolved DateSmall bowel swfknrrjcaj29/02/202209/2Obesity Last Assessment & Plan: Body mass index is 32.12 kg/m . documented as of this encounter (statuses as of 02/10/2023) [address]02-2022 History of Past illness Narrative* ProblemNoted Date Diagnosed DateResolved DateSmall bowel uuoalclxbtj512Obesity Last Assessment & Plan: Body mass index is 32.12 kg/m . documented as of this encounter (statuses as of 03/07/2023) [address]02-2022 History of Past illness Narrative* ProblemNoted Date Diagnosed DateResolved DateSmall bowel awjaapckngb97besity Last Assessment & Plan: Body mass index is 32.12 kg/m . documented as of this encounter (statuses as of 04/10/2023) [address]02-2022 History of Past illness Narrative* ProblemNoted Date Diagnosed DateResolved DateSmall bowel qoosrvqvueg992Obesity Last Assessment & Plan: Body mass index is 32.12 kg/m . documented as of this encounter (statuses as of 06/20/2023) [address]02-2022 History of Past illness Narrative* ProblemNoted Date Diagnosed DateResolved DateSmall bowel racafovhfxk85/02/202209//2Obesity Last Assessment & Plan: Body mass index is 32.12 kg/m . documented as of this encounter (statuses as of 06/21/2023) [address]02-2022 History of Past illness Narrative* ProblemNoted Date Diagnosed DateResolved DateSmall bowel teffgcynvyc48/02/202209/2Obesity Last Assessment & Plan: Body mass index is 32.12 kg/m . documented as of this encounter (statuses as of 06/27/2023) [address]02-2022 History of Past illness Narrative* ProblemNoted Date Diagnosed DateResolved DateSmall bowel gofmhvofsjj882Obesity Last Assessment & Plan: Body mass index is 32.12 kg/m . documented as of this encounter (statuses as of 06/29/2023) [address]02-2022 History of Past illness Narrative* ProblemNoted Date Diagnosed DateResolved DateSmall bowel agldelsvlsk092Obesity Last Assessment & Plan: Body mass index is 32.12 kg/m . documented as of this encounter (statuses as of 07/04/2023) [address]02-2022 History of Past illness Narrative* ProblemNoted Date Diagnosed DateResolved DateSmall bowel lbbrfbivdpd222Obesity Last Assessment & Plan: Body mass index is 32.12 kg/m . documented as of this encounter (statuses as of 08/01/2023) [address]02-2022 History of Past illness Narrative* ProblemNoted Date Diagnosed DateResolved DateSmall bowel oghpeveshcu54/2Obesity Last Assessment & Plan: Body mass index is 32.12 kg/m . documented as of this encounter (statuses as of 08/01/2023) [address]02-2022 History of Past illness Narrative* ProblemNoted Date Diagnosed DateResolved DateSmall bowel zrsphtbhorl842Obesity Last Assessment & Plan: Body mass index is 32.12 kg/m . documented as of this encounter (statuses as of 08/02/2023) [facility] Narrative* ProblemNoted Date Diagnosed DateResolved DateSmall bowel opkyhrkairg13/02/202209/besity / Last Assessment & Plan: Body mass index is 32.12 kg/m . documented as of this encounter (statuses as of 08/04/2023) [facility] Miscellaneous Notes* Telephone Encounter - Jovanna Caceres - 12/15/2021 4:24 PM EDT Peterson Gonsalez MD [address] [facility] [employer] This patient is scheduled to see me [...] Most are booking out documented in this encounterThe Metrohealth System08-31-2022 Miscellaneous Notes* Telephone Encounter - Peterson Gonsalez MD - 12/14/2021 7:27 PM EDT I contacted Chikis Tobar earlier today, after receiving a call regarding [...] will let meknow and immediately present to [facility] ED for admission and [...] SBO. Peterson Gonsalez MD documented in this encounterThe [facility]health System08-17-2022 History of Present illness Narrative* Peterson Gonsalez MD - 11/30/2021 3:15 PM EDT Appointment rescheduled documented in this encounterThe Metrohealth System07-18-2022 Miscellaneous Notes* Telephone Encounter - Peterson Gonsalez MD - 10/31/2021 11:37 AM EDT I contacted Chikis Tobar to review CT results, which show small pelvic fluid collection not amenable to percutaneous drainage, without evidence of pubic osteo. Given vaginal drainage, will start empiric Augmentin and she will give an update in 2 weeks. Peterson Gonsalez MD documented in this encounterThe Metrohealth System07-12-2022 History of Present illness Narrative* Colette Carver RN - 10/25/2021 12:15 PM EDT Radiology Service Progress Note DATE OF SERVICE: October 25, 2021 TIME: 12:26 PM PATIENT WEIGHT: 137 LBS PATIENT IDENTITY VERIFICATION COMPLETED USING TWO (2) STANDARD IDENTIFIERS: Name and Date of confirmed by patient verbally. FALL SCREENING: Has the patient had 2 falls in the last year or 1 fall with injury or currently using an Ambulatory Assistive Device (Walker, Cane, Wheelchair, Crutches, etc.)? No PATIENT GENDER DATA: Female. status: : No status: NO. ALLERGIES: Reviewed and unchanged CONTRAST ALLERGY: No EXAM: CT -CONTRAST INDUCED NEPHROPATHY RISK FACTORS: Diabetic: Yes. Current medication(s): Insulin Insulin Pump: YES Insulin Pump Removed: YES. Patient currently has insulin pump?: No. and Yes. CREATININE: Creatinine Date Value Ref Range Status 10/25/2021 0.68 0.58 - 0.96 mg/dL Final 05/25/2021 1.01 (H) 0.58 - 0.96 mg/dL Final 04/23/2021 0.88 0.58 - 0.96 mg/dL Final Estimated Glomerular Filtration Rate Date Value Ref Range Status 10/25/2021 103 >=60 mL/min/1.73m Final Comment: Estimated Glomerular Filtration Rate (eGFR) is calculated using the 2020 CKD-EPI creatinine equation. This equation utilizes serum creatinine, sex, and age as parameters. The creatinine assay has traceable calibration to isotope dilution- mass spectrometry. Refer to KDIGO guidelines for clinical interpretation. In patients with unstable renal function, e.g. those with acute kidney injury, the eGFRmay not accurately reflect actual GFR. eGFR- Date Value Ref Range Status 05/25/2021 >60 Final P.O.C.T. RESULTS: POC done: Yes, See Lab Tab October 25, 2021 TREATMENT: No Hydration needed. IV SITE: Ambulatory: A peripheral IV was started in the Right forearm with a Angio cath: 22 gauge. IV SITE APPEARANCE: Clean,Dry and Intact SIGNATURE: Colette Carver RN PATIENT NAME: Chikis Tobar DATE: October 25, 2021 TIME: 12:26 PM * Rudy Hanson, RT(R) - 10/25/2021 12:15 PM EDT Radiology Service Progress Note PATIENT NAME: Chikis Tobar DATE OF SERVICE: October 25, 2021 TIME: 12:41 PM PATIENT IDENTITY VERIFICATION COMPLETED USING TWO [...] Applicable RADIOLOGY DEPARTMENT: CT; Exam(s) Completed: Abdomen/Pelvis PERIPHERAL IV DATA: Site assessment: Clean,Dry and Intact, Site disposition Discontinued SIGNED BY: RT Erich(R) October 25, 2021 12:41 PM documented in this encounterThe Metrohealth System06-29-2022 Miscellaneous Notes* Telephone Encounter - Chelsie Barrow RN - 10/12/2021 10:06 AM EDT Please sign pending Cre order for Chikis Tobar [id number] for upcoming CT with contrast. Thank you. Chelsie Barrow RN documented in this encounterThe Metrohealth System06-28-2022 History of Present illness Narrative* Peterson Gonsalez MD - 10/11/2021 1:50 PM EDT [facility] ESTABLISHED PATIENT OFFICE [...] 04/20/2021 7.40 7.35 - 7.45 Final Specific Railroad, Ur Date Value Ref Range Status 04/13/2021 [...] MD October 11, 2021 documented in this encounterThe Metrohealth System06-24-2022 Miscellaneous Notes* Telephone Encounter - Chelsie Bridges [...] in November. Patient accepted 10/11/2021 150pm at [facility]. Updated Dr. Gonsalez. Chelsie Bridges RN * [...] concerned is the pain documented in this encounterThe Metrohealth System06-08-2022 Nurse Note* Cindy Magana RN - 09/21/2021 [...] In Department: AMBULATORY SURGERY documented in this encounterThe Metrohealth System06-08-2022 History and physical note * Myrna Mendez MD - 09/21/2021 2:15 PM EDT HISTORY AND PHYSICAL EXAMINATION SERVICE DATE: 09/21/2021 SERVICE TIME: 2:22 PM PRIMARY CARE PHYSICIAN: Kalli Simons MD Subjective CHIEF COMPLAINT: Nausea and colon [...] 2:22 PM PAGER/CONTACT #: documented in this encounterThe Metrohealth System05-10-2022 History of Present illness Narrative* Jose Schmid, PROCUREMENT DIRECTOR.STABLE HELPER - 08/23/2021 10:35 AM EDT DEPARTMENT OF [...] EGD pending results -Provided gastroparesis diet Jose Schmid APRN.CNP 08/23/2021 10:35 AM documented in this encounterThe Metrohealth System02-22-2022 History of Present illness Narrative* CHIKIS TOBAR is being seen for follow-up of a recent hospitalization for, type 1 diabetes. Dateof last HbA1c: 2/22/22 and results: 9.2%. * Current DM Regimen:. [...] with diet plan. * Diabetes Surveillance: Foot exam/traffic law attorney: 08/03/20. * Diabetes Complications: * Opthalmic: Has [...] apr 20 (stayed for 4 days at [facility]) - pt was not [...] this website for provider view at appointments QD-Knkiedruwzrow-MYT [address] Work Phone: 1(471) 221-823402-22-2022 History of Present illness Narrative* CHIKIS TOBAR is being seen for routine follow-up for, type 1 diabetes. Date of last HbA1c: 06/07/21 and results: 9.2%. * Current DM Regimen:. insulin. pump. CGM. compliant with current DM regimen. * Home Glucose Monitoring: * Source: tandem tconnect device downloaded, reviewed and scanned into chart. * Frequency of Testing: Testing done daily. Testing done with meals. * Compliant with home glucose monitoring. * Glucose Ranges: 76-380. * No recent hypoglycemic episodes. * Diet Plan: * Type of Diet: Carb counting * Patient is compliant with diet plan. * Diabetes Surveillance: Foot exam/traffic law attorney: 08/03/20. * Diabetes Complications: * Opthalmic: Has [...] apr 20 (stayed for 4 days at [facility]) - pt was not [...] and difficulty walking with pelvic fluid collection CZ-Vsnayjxzguusf-MAE [address] Work Phone: 1(610) 666-878412-01-2021 History of Present illness Narrative* Carolyn Echevarria, RT(R) - 03/16/2021 2:45 PM EST Radiology Service Progress Note PATIENT NAME: Chikis Tobar DATE OF SERVICE: March 16, 2021 TIME: 2:57 PM PATIENT IDENTITY VERIFICATION COMPLETED USING TWO [...] Not Applicable RADIOLOGY DEPARTMENT: CT; Exam(s) Completed: Chest PERIPHERAL IV DATA: Not applicable SIGNED BY: RT Lisa(R) March 16, 2021 2:57 PM documented in this encounterThe Metrohealth System11-03-2021 History of Past illness Narrative* ProblemNoted DateDiagnosed DateResolved CtfzGwvrjty91/03/2021 06/11/2022 Last Assessment & Plan: Body mass index is 32.12 kg/m . documented as of this encounter (statuses as of 11/25/2022) [facility] Miscellaneous Notes* Telephone Encounter - Flor De Jesus - 02/04/2021 12:18 PM EDT Attempted to reach patient by phone in chart to bring records to appointment with Dr. Gonsalez on 02/09/2021. No VM left as phone hangs up before a message can be left. Flor Luu Urology documented in this encounterThe Metrohealth System10-22-2021 Miscellaneous Notes* Telephone Encounter - Bree Briceno LPN - 02/04/2021 10:15 AM EDT Per staff message patient added to see Dr. Gonsalez Friday 02/09 at 8:30am Patient aware and will bring all records she has to appt. Flor Roberts is working on other records as well documented in this encounterThe Metrohealth System09-30-2021 NoteClinical Information Procedure: Endometrial biopsy Pre-operative diagnosis: [...] atrophic endometrial tissue with mild chronic inflammation. [id number] Katie Argueta MD (Electronically signed by) Verified: 01/17/21 15:11BOhio State Health SystemComment on above:Performed By: #### SPR #### [facility] (DEFAULT) [address] [place], [place] [id number] History of Present illness Narrative* CHIKIS TOBAR [...] with diet plan. * Diabetes Surveillance: Foot exam/traffic law attorney: 08/03/20. * Diabetes Complications: * Opthalmic: Has [...] update labs and continue current pump settings [facility] [employer] Work Phone: [phone]) 295-522304-20-2021 History of Present illness Narrative* CHIKIS TOBAR [...] with diet plan. * Diabetes Surveillance: Foot exam/traffic law attorney: 08/03/20. * Diabetes Complications: * Opthalmic: Has [...] apr 20 (stayed for 4 days at [facility]) - pt was not [...] current sugar reading as your bolus input [facility] [employer] [address] Work Phone: [phone]) [phone] History of Present illness Narrative* CHIKIS TOBAR [...] with diet plan. * Diabetes Surveillance: Foot exam/traffic law attorney: 08/03/20. * Diabetes Complications: * Opthalmic: Has [...] bx, we reviewed her pelvic US together [id number] Work Phone: Evaluation note* Diagnosis Encounter for screening for malignant neoplasm of colon- Primary Special screening for malignant neoplasms, colon Nausea and vomiting, unspecified vomiting type Early satiety Nausea Nausea alone [facility] Nausea and vomiting, unspecified vomiting type Encounter for screening for malignant neoplasm of colon Special screening for malignant neoplasms, colon [facility] Diagnosis History of bladder cancer- Primary Personal history of malignant neoplasm of bladder Abdominal pain, unspecified abdominal location [facility] Diagnosis Malignant neoplasm of urinary bladder, unspecified site (HCC)- Primary [facility] Diagnosis Malignant neoplasm of urinary bladder, unspecified site (HCC)- Primary Malignant neoplasm of urinary bladder, unspecified site (HCC) [facility] Diagnosis APPOINTMENT CANCELLED- Primary [facility] Diagnosis Small bowel obstruction (HCC)- Primary Unspecified intestinal obstruction [facility] Diagnosis Onset Date Resolution Status Abdominal pain acuteAltered mental statusacuteUnable to care for selfacute [facility] Work Phone: Evaluation note* Diagnosis History of bladder cancer- Primary Personal history of malignant neoplasm of bladder Malignant neoplasm of urinary bladder, unspecified site (HCC) [facility] Diagnosis Severe protein-calorie malnutrition (HCC)- Primary Other severe protein-calorie malnutrition S/P exploratory laparotomy Other postprocedural status [facility] Diagnosis S/P exploratory laparotomy- Primary Other postprocedural status Severe protein-calorie malnutrition (HCC) Other severe protein-calorie malnutrition [facility] Diagnosis S/P exploratory laparotomy- Primary Other postprocedural status Severe protein-calorie malnutrition (HCC) Other severe protein-calorie malnutrition Chronic low back pain without sciatica, unspecified back pain laterality [facility] Diagnosis History of bladder cancer- Primary Personal history of malignant neoplasm of bladder [facility] noteNo [employer] Other Evaluation note* Diagnosis Cervicalgia- Primary [facility]* Diagnosis Other hydrocephalus (HCC)- Primary [facility]* Diagnosis Malignant neoplasm of urinary bladder, unspecified site (HCC)- Primary Severe protein-calorie malnutrition (HCC) Other severe protein-calorie malnutrition Type 1 diabetes mellitus with unspecified complications (HCC) [facility]* Diagnosis Other hydrocephalus (HCC)- Primary Severe protein-calorie malnutrition (HCC) Other severe protein-calorie malnutrition [facility]* Diagnosis Other hydrocephalus (HCC)- Primary [facility]* Diagnosis Onset Date Resolution Status Bladder cancer chronicLimited mobilitychronicThin build in adultchronicType 1 diabetes mellitus chronicWalker as ambulation aidchronicPressure ulcer of sacral region, stage 3 resolved [facility] Work Phone: Evaluation [employer] Other evaluation note* Diagnosis Therapeutic drug monitoring- Primary Encounter for therapeutic drug monitoring Fungal meningitis Other and unspecified mycoses 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 Type 1 diabetes mellitus with unspecified complications (HCC) documented in this encounter [facility] note* Diagnosis Other hydrocephalus (HCC) [facility] Diagnosis Malignant neoplasm of urinary bladder, unspecified site (HCC) [facility]* Diagnosis Other hydrocephalus (HCC)- Primary documented in this encounter [facility] note* Diagnosis History of bladder cancer- Primary Personal history of malignant neoplasm of bladder [facility]* Diagnosis Fungal meningitis- Primary Other and unspecified mycoses Obstructive hydrocephalus (HCC) Obstructive hydrocephalus 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 Type 1 diabetes mellitus with unspecified complications (HCC) Myelitis (HCC) Unspecified cause of encephalitis, myelitis, and encephalomyelitis alf (current) use of antibiotics [facility]* Diagnosis Fungal meningitis- Primary Other and unspecified mycoses Acute pain of both shoulders Obstructive hydrocephalus (HCC) Obstructive hydrocephalus Therapeutic drug monitoring Encounter for therapeutic drug monitoring meterman (current) use of antibiotics 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 Type 1 diabetes mellitus with unspecified complications (HCC) Myelitis (HCC) Unspecified cause of encephalitis, myelitis, and encephalomyelitis documented in this encounter [facility] note* Diagnosis Closed nondisplaced transverse fracture of left patella, initial encounter- Primary documented in this encounter [facility] note* Diagnosis APPOINTMENT CANCELLED- Primary documented in this encounter [facility] noteNo assessment [facility] Work Phone: Evaluation note* Diagnosis 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 [facility] Diagnosis Intraoperative ureteral injury- Primary [facility] Diagnosis Onset Date Resolution Status HTN (hypertension) acuteNecrosis of intestineacuteTransitional cell bladder canceracuteType 1 diabetes mellituschronicEustachian tube dysfunctionacute [facility] Work Phone: Evaluation note* Diagnosis Fungal meningitis- Primary Other and unspecified mycoses 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 Type 1 diabetes mellitus with unspecified complications (HCC) alf (current) use of antibiotics 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 documented in this encounter [facility] note* Diagnosis Closed nondisplaced transverse fracture of left patella, initial encounter- Primary documented in this encounter [facility] note* Diagnosis Closed nondisplaced transverse fracture of left patella, initial encounter [facility] Diagnosis Intraoperative ureteral injury- Primary [facility] Diagnosis 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 [facility] Diagnosis 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) [facility] Diagnosis Other hydrocephalus (HCC)- Primary [facility]* Diagnosis 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 [facility]* Diagnosis 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 Screening for condition Screening for unspecified condition [facility]* Diagnosis Attention to urostomy (HCC)- Primary Attention to other artificial opening of urinary tract Attention to artificial opening of urinary tract (HCC) Attention to other artificial opening of urinary tract 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 [facility] Diagnosis History of bladder cancer- Primary Personal history of malignant neoplasm of bladder Severe protein-calorie malnutrition (HCC) Other severe protein-calorie malnutrition 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 [facility]* Diagnosis History of bladder cancer- Primary Personal history of malignant neoplasm of bladder 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 [facility]* Diagnosis Screening for genitourinary condition Screening for other and unspecified genitourinary condition 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 [facility] Diagnosis History of bladder cancer- Primary Personal history of malignant neoplasm of bladder 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 [facility]* Diagnosis Hydrocephalus, adult (HCC)- Primary Obstructive hydrocephalus Other hydrocephalus (HCC) Meningitis, fungal Other and unspecified mycoses Weakness of both lower extremities Spasticity Abnormal involuntary movements 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 [facility]* Diagnosis Onset Date Resolution Status HTN (hypertension) acuteNecrosis of intestineacuteTransitional cell bladder canceracuteType 1 diabetes mellituschronicEustachian tube dysfunctionacuteChronic venous insufficiencyacuteHTN (hypertension)acuteHydrocephalusacuteMuscle spasticity acuteType 1 diabetes mellitus with hyperglycemiaacute [facility] Work Phone: Evaluation note* Diagnosis Hydrocephalus, adult (HCC)- Primary Obstructive hydrocephalus 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 [facility]* Diagnosis History of bladder cancer Personal history of malignant neoplasm of bladder 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 [facility] Diagnosis Fungal meningitis- Primary Other and unspecified mycoses Muscle spasm of left lower extremity Muscle spasm of right lower extremity 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 meterman (current) use of antibiotics Therapeutic drug monitoring Encounter for therapeutic drug monitoring Type 1 diabetes mellitus with unspecified complications (HCC) 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 documented [facility]* Diagnosis Other hydrocephalus (HCC)- Primary [facility]* Diagnosis Tibia/fibula fracture, left, closed, initial encounter- Primary [facility] Diagnosis Tibia/fibula fracture, left, closed, initial encounter [facility] Diagnosis Other hydrocephalus (HCC)- Primary [facility]* Diagnosis Pressure injury of deep tissue of left heel- Primary Maceration of periwound skin Pressure injury of deep tissue of left foot Physical deconditioning Debility, unspecified [facility]* Diagnosis Weak- Primary Other malaise and fatigue Fracture Closed fracture of unspecified bone 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 [facility]* Diagnosis Obstructive hydrocephalus (HCC)- Primary Obstructive hydrocephalus Fungal meningitis Other and unspecified mycoses Tibia/fibula fracture, left, closed, initial encounter Diabetes mellitus type 1, controlled, without complications (HCC) Type I (juvenile type) diabetes mellitus without mention of complication, not stated as uncontrolled Malignant neoplasm of urinary bladder, unspecified site ([facility]) [facility]* Diagnosis Pressure injury of left heel, unstageable (HCC)- Primary Physical deconditioning Debility, unspecified [facility]* Diagnosis Obstructive hydrocephalus (HCC)- Primary Obstructive hydrocephalus Fungal meningitis Other and unspecified mycoses [facility] Diagnosis Obstructive hydrocephalus (HCC)- Primary Obstructive hydrocephalus [facility] Diagnosis Obstructive hydrocephalus (HCC)- Primary Obstructive hydrocephalus Fungal meningitis Other and unspecified mycoses [facility]* Diagnosis Obstructive hydrocephalus (HCC)- Primary Obstructive hydrocephalus Fungal meningitis Other and unspecified mycoses [facility]* Diagnosis Obstructive hydrocephalus (HCC) Obstructive hydrocephalus documented [facility] this [facility]* Diagnosis Tibia/fibula fracture, left, closed, initial encounter- Primary Severe protein-calorie malnutrition (HCC) Other severe protein-calorie malnutrition [facility]* Diagnosis Tibia/fibula fracture, left, closed, initial encounter [facility] Diagnosis Fungal meningitis- Primary Other and unspecified mycoses alf (current) use of antibiotics Muscle spasm of left lower extremity Myelitis (HCC) Unspecified cause of encephalitis, myelitis, and encephalomyelitis Muscle spasm of right lower extremity 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 [facility]* Diagnosis Pressure injury of left heel, unstageable (HCC)- Primary Physical deconditioning Debility, unspecified [facility]* Diagnosis Spasticity- Primary Abnormal involuntary movements Other hydrocephalus (HCC) [facility]* Diagnosis Other hydrocephalus (HCC) [facility]* Diagnosis Pre-op evaluation- Primary Preoperative examination, unspecified Neoplasm of bladder Neoplasm of unspecified nature of bladder Asthma, unspecified asthma severity, unspecified whether complicated, unspecified whether persistent Hypertension, unspecified type Palpitations Class 1 obesity with body mass index (BMI) of 31.0 to 31.9 in adult, unspecified obesity type, unspecified whether serious comorbidity present Pre-op evaluation- Primary Preoperative examination, unspecified Malignant neoplasm of urinary bladder, unspecified site (HCC) Class 1 obesity with body mass index (BMI) of 32.0 to 32.9 in adult, unspecified obesity type, unspecified whether serious comorbidity present Type 1 diabetes mellitus with other specified complication (HCC) Asthma, unspecified asthma severity, unspecified whether complicated, unspecified whether persistent Hypertension, unspecified type Palpitations Neoplasm of bladder Neoplasm of unspecified nature of bladder Hydrocephalus (HCC)- Primary Obstructive hydrocephalus 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 Type 1 diabetes mellitus with hyperglycemia (HCC) Type I (juvenile type) diabetes mellitus without mention of complication, not stated as uncontrolled Insulin pump in place Insulin pump status Recurrent falls Personal history of fall Tibia/fibula fracture, left, closed, initial encounter Dyslipidemia Other and unspecified hyperlipidemia Essential hypertension Unspecified essential hypertension Fungal meningitis Other and unspecified mycoses Pressure injury of left heel, stage 1 Deep tissue injury Pressure injury of coccygeal region, stage 2 (HCC) Preop exam for internal medicine Other specified pre-operative examination Pressure injury of deep tissue of left heel Alteration in self-care ability Debility, unspecified Impaired mobility Other ill-defined conditions Risk for falls Personal history of fall S/P exploratory laparotomy Other postprocedural status Pressure injury of deep tissue of left foot Long-term insulin use (HCC) Encounter for long-term (current) use of insulin Obstructive hydrocephalus (HCC) Obstructive hydrocephalus [facility] Diagnosis Pre-op evaluation- Primary Preoperative examination, unspecified Neoplasm of bladder Neoplasm of unspecified nature of bladder Asthma, unspecified asthma severity, unspecified whether complicated, unspecified whether persistent Hypertension, unspecified type Palpitations Class 1 obesity with body mass index (BMI) of 31.0 to 31.9 in adult, unspecified obesity type, unspecified whether serious comorbidity present Pre-op evaluation- Primary Preoperative examination, unspecified Malignant neoplasm of urinary bladder, unspecified site (HCC) Class 1 obesity with body mass index (BMI) of 32.0 to 32.9 in adult, unspecified obesity type, unspecified whether serious comorbidity present Type 1 diabetes mellitus with other specified complication (HCC) Asthma, unspecified asthma severity, unspecified whether complicated, unspecified whether persistent Hypertension, unspecified type Palpitations Neoplasm of bladder Neoplasm of unspecified nature of bladder Hydrocephalus (HCC)- Primary Obstructive hydrocephalus 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 Type 1 diabetes mellitus with hyperglycemia (HCC) Type I (juvenile type) diabetes mellitus without mention of complication, not stated as uncontrolled Insulin pump in place Insulin pump status Recurrent falls Personal history of fall Tibia/fibula fracture, left, closed, initial encounter Dyslipidemia Other and unspecified hyperlipidemia Essential hypertension Unspecified essential hypertension Fungal meningitis Other and unspecified mycoses Pressure injury of left heel, stage 1 Deep tissue injury Pressure injury of coccygeal region, stage 2 (HCC) Preop exam for internal medicine Other specified pre-operative examination Pressure injury of deep tissue of left heel Alteration in self-care ability Debility, unspecified Impaired mobility Other ill-defined conditions Risk for falls Personal history of fall S/P exploratory laparotomy Other postprocedural status Pressure injury of deep tissue of left foot Long-term insulin use (HCC) Encounter for long-term (current) use of insulin 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 Other and unspecified mycoses Myelitis (HCC) Unspecified cause of encephalitis, myelitis, and encephalomyelitis 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 Spasm of muscle Impaired mobility and activities of daily living Other ill-defined conditions [facility]* Diagnosis Pre-op evaluation- Primary Preoperative examination, unspecified Neoplasm of bladder Neoplasm of unspecified nature of bladder Asthma, unspecified asthma severity, unspecified whether complicated, unspecified whether persistent Hypertension, unspecified type Palpitations Class 1 obesity with body mass index (BMI) of 31.0 to 31.9 in adult, unspecified obesity type, unspecified whether serious comorbidity present Pre-op evaluation- Primary Preoperative examination, unspecified Malignant neoplasm of urinary bladder, unspecified site ([facility]) Class 1 obesity with body mass index (BMI) of 32.0 to 32.9 in adult, unspecified obesity type, unspecified whether serious comorbidity present Type 1 diabetes mellitus with other specified complication (HCC) Asthma, unspecified asthma severity, unspecified whether complicated, unspecified whether persistent Hypertension, unspecified type Palpitations Neoplasm of bladder Neoplasm of unspecified nature of bladder Hydrocephalus (HCC)- Primary Obstructive hydrocephalus 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 Type 1 diabetes mellitus with hyperglycemia (HCC) Type I (juvenile type) diabetes mellitus without mention of complication, not stated as uncontrolled Insulin pump in place Insulin pump status Recurrent falls Personal history of fall Tibia/fibula fracture, left, closed, initial encounter Dyslipidemia Other and unspecified hyperlipidemia Essential hypertension Unspecified essential hypertension Fungal meningitis Other and unspecified mycoses Pressure injury of left heel, stage 1 Deep tissue injury Pressure injury of coccygeal region, stage 2 (HCC) Preop exam for internal medicine Other specified pre-operative examination Pressure injury of deep tissue of left heel Alteration in self-care ability Debility, unspecified Impaired mobility Other ill-defined conditions Risk for falls Personal history of fall S/P exploratory laparotomy Other postprocedural status Pressure injury of deep tissue of left foot Long-term insulin use (HCC) Encounter for long-term (current) use of insulin OPENED IN ERROR- Primary To allow closing an encounter opened in error (used in [employer]) [facility]* Diagnosis Pre-op evaluation- Primary Preoperative examination, unspecified Neoplasm of bladder Neoplasm of unspecified nature of bladder Asthma, unspecified asthma severity, unspecified whether complicated, unspecified whether persistent Hypertension, unspecified type Palpitations Class 1 obesity with body mass index (BMI) of 31.0 to 31.9 in adult, unspecified obesity type, unspecified whether serious comorbidity present Pre-op evaluation- Primary Preoperative examination, unspecified Malignant neoplasm of urinary bladder, unspecified site (HCC) Class 1 obesity with body mass index (BMI) of 32.0 to 32.9 in adult, unspecified obesity type, unspecified whether serious comorbidity present Type 1 diabetes mellitus with other specified complication (HCC) Asthma, unspecified asthma severity, unspecified whether complicated, unspecified whether persistent Hypertension, unspecified type Palpitations Neoplasm of bladder Neoplasm of unspecified nature of bladder Hydrocephalus (HCC)- Primary Obstructive hydrocephalus 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 Type 1 diabetes mellitus with hyperglycemia ([facility]) Type I (juvenile type) diabetes mellitus without mention of complication, not stated as uncontrolled Insulin pump in place Insulin pump status Recurrent falls Personal history of fall Tibia/fibula fracture, left, closed, initial encounter Dyslipidemia Other and unspecified hyperlipidemia Essential hypertension Unspecified essential hypertension Fungal meningitis Other and unspecified mycoses Pressure injury of left heel, stage 1 Deep tissue injury Pressure injury of coccygeal region, stage 2 ([facility]) Preop exam for internal medicine Other specified pre-operative examination Pressure injury of deep tissue of left heel Alteration in self-care ability Debility, unspecified Impaired mobility Other ill-defined conditions Risk for falls Personal history of fall S/P exploratory laparotomy Other postprocedural status Pressure injury of deep tissue of left foot Long-term insulin use ([facility]) Encounter for long-term (current) use of insulin Pressure injury of left heel, unstageable ([facility])- Primary Physical deconditioning Debility, unspecified documented in this encounter [facility] note* Diagnosis Pre-op evaluation- Primary Preoperative examination, unspecified Neoplasm of bladder Neoplasm of unspecified nature of bladder Asthma, unspecified asthma severity, unspecified whether complicated, unspecified whether persistent Hypertension, unspecified type Palpitations Class 1 obesity with body mass index (BMI) of 31.0 to 31.9 in adult, unspecified obesity type, unspecified whether serious comorbidity present Pre-op evaluation- Primary Preoperative examination, unspecified Malignant neoplasm of urinary bladder, unspecified site (HCC) Class 1 obesity with body mass index (BMI) of 32.0 to 32.9 in adult, unspecified obesity type, unspecified whether serious comorbidity present Type 1 diabetes mellitus with other specified complication (HCC) Asthma, unspecified asthma severity, unspecified whether complicated, unspecified whether persistent Hypertension, unspecified type Palpitations Neoplasm of bladder Neoplasm of unspecified nature of bladder Hydrocephalus (HCC)- Primary Obstructive hydrocephalus 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 Type 1 diabetes mellitus with hyperglycemia (HCC) Type I (juvenile type) diabetes mellitus without mention of complication, not stated as uncontrolled Insulin pump in place Insulin pump status Recurrent falls Personal history of fall Tibia/fibula fracture, left, closed, initial encounter Dyslipidemia Other and unspecified hyperlipidemia Essential hypertension Unspecified essential hypertension Fungal meningitis Other and unspecified mycoses Pressure injury of left heel, stage 1 Deep tissue injury Pressure injury of coccygeal region, stage 2 (HCC) Preop exam for internal medicine Other specified pre-operative examination Pressure injury of deep tissue of left heel Alteration in self-care ability Debility, unspecified Impaired mobility Other ill-defined conditions Risk for falls Personal history of fall S/P exploratory laparotomy Other postprocedural status Pressure injury of deep tissue of left foot Long-term insulin use ([facility]) Encounter for long-term (current) use of insulin Obstructive hydrocephalus (HCC)- Primary Obstructive hydrocephalus Fungal meningitis Other and unspecified mycoses [facility] Diagnosis Pre-op evaluation- Primary Preoperative examination, unspecified Neoplasm of bladder Neoplasm of unspecified nature of bladder Asthma, unspecified asthma severity, unspecified whether complicated, unspecified whether persistent Hypertension, unspecified type Palpitations Class 1 obesity with body mass index (BMI) of 31.0 to 31.9 in adult, unspecified obesity type, unspecified whether serious comorbidity present Pre-op evaluation- Primary Preoperative examination, unspecified Malignant neoplasm of urinary bladder, unspecified site (HCC) Class 1 obesity with body mass index (BMI) of 32.0 to 32.9 in adult, unspecified obesity type, unspecified whether serious comorbidity present Type 1 diabetes mellitus with other specified complication (HCC) Asthma, unspecified asthma severity, unspecified whether complicated, unspecified whether persistent Hypertension, unspecified type Palpitations Neoplasm of bladder Neoplasm of unspecified nature of bladder Hydrocephalus (HCC)- Primary Obstructive hydrocephalus 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 Type 1 diabetes mellitus with hyperglycemia (HCC) Type I (juvenile type) diabetes mellitus without mention of complication, not stated as uncontrolled Insulin pump in place Insulin pump status Recurrent falls Personal history of fall Tibia/fibula fracture, left, closed, initial encounter Dyslipidemia Other and unspecified hyperlipidemia Essential hypertension Unspecified essential hypertension Fungal meningitis Other and unspecified mycoses Pressure injury of left heel, stage 1 Deep tissue injury Pressure injury of coccygeal region, stage 2 (HCC) Preop exam for internal medicine Other specified pre-operative examination Pressure injury of deep tissue of left heel Alteration in self-care ability Debility, unspecified Impaired mobility Other ill-defined conditions Risk for falls Personal history of fall S/P exploratory laparotomy Other postprocedural status Pressure injury of deep tissue of left foot Long-term insulin use (HCC) Encounter for long-term (current) use of insulin Obstructive hydrocephalus (HCC) Obstructive hydrocephalus [facility] Pre-op evaluation- Primary Preoperative examination, unspecified Neoplasm of bladder Neoplasm of unspecified nature of bladder Asthma, unspecified asthma severity, unspecified whether complicated, unspecified whether persistent Hypertension, unspecified type Palpitations Class 1 obesity with body mass index (BMI) of 31.0 to 31.9 in adult, unspecified obesity type, unspecified whether serious comorbidity present Pre-op evaluation- Primary Preoperative examination, unspecified Malignant neoplasm of urinary bladder, unspecified site (HCC) Class 1 obesity with body mass index (BMI) of 32.0 to 32.9 in adult, unspecified obesity type, unspecified whether serious comorbidity present Type 1 diabetes mellitus with other specified complication (HCC) Asthma, unspecified asthma severity, unspecified whether complicated, unspecified whether persistent Hypertension, unspecified type Palpitations Neoplasm of bladder Neoplasm of unspecified nature of bladder Hydrocephalus (HCC)- Primary Obstructive hydrocephalus 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 Type 1 diabetes mellitus with hyperglycemia (HCC) Type I (juvenile type) diabetes mellitus without mention of complication, not stated as uncontrolled Insulin pump in place Insulin pump status Recurrent falls Personal history of fall Tibia/fibula fracture, left, closed, initial encounter Dyslipidemia Other and unspecified hyperlipidemia Essential hypertension Unspecified essential hypertension Fungal meningitis Other and unspecified mycoses Pressure injury of left heel, stage 1 Deep tissue injury Pressure injury of coccygeal region, stage 2 (HCC) Preop exam for internal medicine Other specified pre-operative examination Pressure injury of deep tissue of left heel Alteration in self-care ability Debility, unspecified Impaired mobility Other ill-defined conditions Risk for falls Personal history of fall S/P exploratory laparotomy Other postprocedural status Pressure injury of deep tissue of left foot Long-term insulin use ([facility]) Encounter for long-term (current) use of insulin Obstructive hydrocephalus ([facility])- Primary Obstructive hydrocephalus Fungal meningitis Other and unspecified mycoses documented in this encounter [facility] note* Diagnosis Pre-op evaluation- Primary Preoperative examination, unspecified Neoplasm of bladder Neoplasm of unspecified nature of bladder Asthma, unspecified asthma severity, unspecified whether complicated, unspecified whether persistent Hypertension, unspecified type Palpitations Class 1 obesity with body mass index (BMI) of 31.0 to 31.9 in adult, unspecified obesity type, unspecified whether serious comorbidity present Pre-op evaluation- Primary Preoperative examination, unspecified Malignant neoplasm of urinary bladder, unspecified site ([facility]) Class 1 obesity with body mass index (BMI) of 32.0 to 32.9 in adult, unspecified obesity type, unspecified whether serious comorbidity present Type 1 diabetes mellitus with other specified complication ([facility]) Asthma, unspecified asthma severity, unspecified whether complicated, unspecified whether persistent Hypertension, unspecified type Palpitations Neoplasm of bladder Neoplasm of unspecified nature of bladder Hydrocephalus ([facility])- Primary Obstructive hydrocephalus 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 Type 1 diabetes mellitus with hyperglycemia ([facility]) Type I (juvenile type) diabetes mellitus without mention of complication, not stated as uncontrolled Insulin pump in place Insulin pump status Recurrent falls Personal history of fall Tibia/fibula fracture, left, closed, initial encounter Dyslipidemia Other and unspecified hyperlipidemia Essential hypertension Unspecified essential hypertension Fungal meningitis Other and unspecified mycoses Pressure injury of left heel, stage 1 Deep tissue injury Pressure injury of coccygeal region, stage 2 ([facility]) Preop exam for internal medicine Other specified pre-operative examination Pressure injury of deep tissue of left heel Alteration in self-care ability Debility, unspecified Impaired mobility Other ill-defined conditions Risk for falls Personal history of fall S/P exploratory laparotomy Other postprocedural status Pressure injury of deep tissue of left foot Long-term insulin use ([facility]) Encounter for long-term (current) use of insulin Obstructive hydrocephalus ([facility])- Primary Obstructive hydrocephalus Fungal meningitis Other and unspecified mycoses [facility] Pre-op [facility]- Primary Preoperative examination, unspecified Neoplasm of bladder Neoplasm of unspecified nature of bladder Asthma, unspecified asthma severity, unspecified whether complicated, unspecified whether persistent Hypertension, unspecified type Palpitations Class 1 obesity with body mass index (BMI) of 31.0 to 31.9 in adult, unspecified obesity type, unspecified whether serious comorbidity present Pre-op evaluation- Primary Preoperative examination, unspecified Malignant neoplasm of urinary bladder, unspecified site ([facility]) Class 1 obesity with body mass index (BMI) of 32.0 to 32.9 in adult, unspecified obesity type, unspecified whether serious comorbidity present Type 1 diabetes mellitus with other specified complication ([facility]) Asthma, unspecified asthma severity, unspecified whether complicated, unspecified whether persistent Hypertension, unspecified type Palpitations Neoplasm of bladder Neoplasm of unspecified nature of bladder Hydrocephalus ([facility])- Primary Obstructive hydrocephalus 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 Type 1 diabetes mellitus with hyperglycemia ([facility]) Type I (juvenile type) diabetes mellitus without mention of complication, not stated as uncontrolled Insulin pump in place Insulin pump status Recurrent falls Personal history of fall Tibia/fibula fracture, left, closed, initial encounter Dyslipidemia Other and unspecified hyperlipidemia Essential hypertension Unspecified essential hypertension Fungal meningitis Other and unspecified mycoses Pressure injury of left heel, stage 1 Deep tissue injury Pressure injury of coccygeal region, stage 2 ([facility]) Preop exam for internal medicine Other specified pre-operative examination Pressure injury of deep tissue of left heel Alteration in self-care ability Debility, unspecified Impaired mobility Other ill-defined conditions Risk for falls Personal history of fall S/P exploratory laparotomy Other postprocedural status Pressure injury of deep tissue of left foot Long-term insulin use ([facility]) Encounter for long-term (current) use of insulin Pressure injury of left heel, unstageable ([facility])- Primary Physical deconditioning Debility, unspecified documented in this encounter [facility] note* Diagnosis Pre-op evaluation- Primary Preoperative examination, unspecified Neoplasm of bladder Neoplasm of unspecified nature of bladder Asthma, unspecified asthma severity, unspecified whether complicated, unspecified whether persistent Hypertension, unspecified type Palpitations Class 1 obesity with body mass index (BMI) of 31.0 to 31.9 in adult, unspecified obesity type, unspecified whether serious comorbidity present Pre-op evaluation- Primary Preoperative examination, unspecified Malignant neoplasm of urinary bladder, unspecified site (HCC) Class 1 obesity with body mass index (BMI) of 32.0 to 32.9 in adult, unspecified obesity type, unspecified whether serious comorbidity present Type 1 diabetes mellitus with other specified complication (HCC) Asthma, unspecified asthma severity, unspecified whether complicated, unspecified whether persistent Hypertension, unspecified type Palpitations Neoplasm of bladder Neoplasm of unspecified nature of bladder Hydrocephalus (HCC)- Primary Obstructive hydrocephalus 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 Type 1 diabetes mellitus with hyperglycemia (HCC) Type I (juvenile type) diabetes mellitus without mention of complication, not stated as uncontrolled Insulin pump in place Insulin pump status Recurrent falls Personal history of fall Tibia/fibula fracture, left, closed, initial encounter Dyslipidemia Other and unspecified hyperlipidemia Essential hypertension Unspecified essential hypertension Fungal meningitis Other and unspecified mycoses Pressure injury of left heel, stage 1 Deep tissue injury Pressure injury of coccygeal region, stage 2 (HCC) Preop exam for internal medicine Other specified pre-operative examination Pressure injury of deep tissue of left heel Alteration in self-care ability Debility, unspecified Impaired mobility Other ill-defined conditions Risk for falls Personal history of fall S/P exploratory laparotomy Other postprocedural status Pressure injury of deep tissue of left foot Long-term insulin use ([facility]) Encounter for long-term (current) use of insulin Obstructive hydrocephalus (HCC)- Primary Obstructive hydrocephalus Fungal meningitis Other and unspecified mycoses Essential hypertension Unspecified essential hypertension [facility] Pre-op [facility]- Primary Preoperative examination, unspecified Neoplasm of bladder Neoplasm of unspecified nature of bladder Asthma, unspecified asthma severity, unspecified whether complicated, unspecified whether persistent Hypertension, unspecified type Palpitations Class 1 obesity with body mass index (BMI) of 31.0 to 31.9 in adult, unspecified obesity type, unspecified whether serious comorbidity present Pre-op evaluation- Primary Preoperative examination, unspecified Malignant neoplasm of urinary bladder, unspecified site (HCC) Class 1 obesity with body mass index (BMI) of 32.0 to 32.9 in adult, unspecified obesity type, unspecified whether serious comorbidity present Type 1 diabetes mellitus with other specified complication (HCC) Asthma, unspecified asthma severity, unspecified whether complicated, unspecified whether persistent Hypertension, unspecified type Palpitations Neoplasm of bladder Neoplasm of unspecified nature of bladder Hydrocephalus (HCC)- Primary Obstructive hydrocephalus 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 Type 1 diabetes mellitus with hyperglycemia (HCC) Type I (juvenile type) diabetes mellitus without mention of complication, not stated as uncontrolled Insulin pump in place Insulin pump status Recurrent falls Personal history of fall Tibia/fibula fracture, left, closed, initial encounter Dyslipidemia Other and unspecified hyperlipidemia Essential hypertension Unspecified essential hypertension Fungal meningitis Other and unspecified mycoses Pressure injury of left heel, stage 1 Deep tissue injury Pressure injury of coccygeal region, stage 2 (HCC) Preop exam for internal medicine Other specified pre-operative examination Pressure injury of deep tissue of left heel Alteration in self-care ability Debility, unspecified Impaired mobility Other ill-defined conditions Risk for falls Personal history of fall S/P exploratory laparotomy Other postprocedural status Pressure injury of deep tissue of left foot Long-term insulin use ([facility]) Encounter for long-term (current) use of insulin Pressure injury of left heel, unstageable ([facility])- Primary Physical deconditioning Debility, unspecified [facility] Diagnosis Pre-op evaluation- Primary Preoperative examination, unspecified Neoplasm of bladder Neoplasm of unspecified nature of bladder Asthma, unspecified asthma severity, unspecified whether complicated, unspecified whether persistent Hypertension, unspecified type Palpitations Class 1 obesity with body mass index (BMI) of 31.0 to 31.9 in adult, unspecified obesity type, unspecified whether serious comorbidity present Pre-op evaluation- Primary Preoperative examination, unspecified Malignant neoplasm of urinary bladder, unspecified site (HCC) Class 1 obesity with body mass index (BMI) of 32.0 to 32.9 in adult, unspecified obesity type, unspecified whether serious comorbidity present Type 1 diabetes mellitus with other specified complication (HCC) Asthma, unspecified asthma severity, unspecified whether complicated, unspecified whether persistent Hypertension, unspecified type Palpitations Neoplasm of bladder Neoplasm of unspecified nature of bladder Hydrocephalus (HCC)- Primary Obstructive hydrocephalus 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 Type 1 diabetes mellitus with hyperglycemia (HCC) Type I (juvenile type) diabetes mellitus without mention of complication, not stated as uncontrolled Insulin pump in place Insulin pump status Recurrent falls Personal history of fall Tibia/fibula fracture, left, closed, initial encounter Dyslipidemia Other and unspecified hyperlipidemia Essential hypertension Unspecified essential hypertension Fungal meningitis Other and unspecified mycoses Pressure injury of left heel, stage 1 Deep tissue injury Pressure injury of coccygeal region, stage 2 (HCC) Preop exam for internal medicine Other specified pre-operative examination Pressure injury of deep tissue of left heel Alteration in self-care ability Debility, unspecified Impaired mobility Other ill-defined conditions Risk for falls Personal history of fall S/P exploratory laparotomy Other postprocedural status Pressure injury of deep tissue of left foot Long-term insulin use (HCC) Encounter for long-term (current) use of insulin Obstructive hydrocephalus (HCC)- Primary Obstructive hydrocephalus Fungal meningitis Other and unspecified mycoses [facility] Diagnosis Pre-op evaluation- Primary Preoperative examination, unspecified Neoplasm of bladder Neoplasm of unspecified nature of bladder Asthma, unspecified asthma severity, unspecified whether complicated, unspecified whether persistent Hypertension, unspecified type Palpitations Class 1 obesity with body mass index (BMI) of 31.0 to 31.9 in adult, unspecified obesity type, unspecified whether serious comorbidity present Pre-op evaluation- Primary Preoperative examination, unspecified Malignant neoplasm of urinary bladder, unspecified site ([facility]) Class 1 obesity with body mass index (BMI) of 32.0 to 32.9 in adult, unspecified obesity type, unspecified whether serious comorbidity present Type 1 diabetes mellitus with other specified complication (HCC) Asthma, unspecified asthma severity, unspecified whether complicated, unspecified whether persistent Hypertension, unspecified type Palpitations Neoplasm of bladder Neoplasm of unspecified nature of bladder Hydrocephalus (HCC)- Primary Obstructive hydrocephalus 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 Type 1 diabetes mellitus with hyperglycemia (HCC) Type I (juvenile type) diabetes mellitus without mention of complication, not stated as uncontrolled Insulin pump in place Insulin pump status Recurrent falls Personal history of fall Tibia/fibula fracture, left, closed, initial encounter Dyslipidemia Other and unspecified hyperlipidemia Essential hypertension Unspecified essential hypertension Fungal meningitis Other and unspecified mycoses Pressure injury of left heel, stage 1 Deep tissue injury Pressure injury of coccygeal region, stage 2 (HCC) Preop exam for internal medicine Other specified pre-operative examination Pressure injury of deep tissue of left heel Alteration in self-care ability Debility, unspecified Impaired mobility Other ill-defined conditions Risk for falls Personal history of fall S/P exploratory laparotomy Other postprocedural status Pressure injury of deep tissue of left foot Long-term insulin use (HCC) Encounter for long-term (current) use of insulin Other hydrocephalus (HCC) [facility] Diagnosis Pre-op evaluation- Primary Preoperative examination, unspecified Neoplasm of bladder Neoplasm of unspecified nature of bladder Asthma, unspecified asthma severity, unspecified whether complicated, unspecified whether persistent Hypertension, unspecified type Palpitations Class 1 obesity with body mass index (BMI) of 31.0 to 31.9 in adult, unspecified obesity type, unspecified whether serious comorbidity present Pre-op evaluation- Primary Preoperative examination, unspecified Malignant neoplasm of urinary bladder, unspecified site (HCC) Class 1 obesity with body mass index (BMI) of 32.0 to 32.9 in adult, unspecified obesity type, unspecified whether serious comorbidity present Type 1 diabetes mellitus with other specified complication (HCC) Asthma, unspecified asthma severity, unspecified whether complicated, unspecified whether persistent Hypertension, unspecified type Palpitations Neoplasm of bladder Neoplasm of unspecified nature of bladder History of bladder cancer Personal history of malignant neoplasm of bladder 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 documented in this encounter [facility] note* Diagnosis Pre-op evaluation- Primary Preoperative examination, unspecified Neoplasm of bladder Neoplasm of unspecified nature of bladder Asthma, unspecified asthma severity, unspecified whether complicated, unspecified whether persistent Hypertension, unspecified type Palpitations Class 1 obesity with body mass index (BMI) of 31.0 to 31.9 in adult, unspecified obesity type, unspecified whether serious comorbidity present Pre-op evaluation- Primary Preoperative examination, unspecified Malignant neoplasm of urinary bladder, unspecified site (HCC) Class 1 obesity with body mass index (BMI) of 32.0 to 32.9 in adult, unspecified obesity type, unspecified whether serious comorbidity present Type 1 diabetes mellitus with other specified complication (HCC) Asthma, unspecified asthma severity, unspecified whether complicated, unspecified whether persistent Hypertension, unspecified type Palpitations Neoplasm of bladder Neoplasm of unspecified nature of bladder Cervicalgia 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 documented in this encounter [facility] note* Diagnosis Pre-op evaluation- Primary Preoperative examination, unspecified Neoplasm of bladder Neoplasm of unspecified nature of bladder Asthma, unspecified asthma severity, unspecified whether complicated, unspecified whether persistent Hypertension, unspecified type Palpitations Class 1 obesity with body mass index (BMI) of 31.0 to 31.9 in adult, unspecified obesity type, unspecified whether serious comorbidity present Pre-op evaluation- Primary Preoperative examination, unspecified Malignant neoplasm of urinary bladder, unspecified site (HCC) Class 1 obesity with body mass index (BMI) of 32.0 to 32.9 in adult, unspecified obesity type, unspecified whether serious comorbidity present Type 1 diabetes mellitus with other specified complication (HCC) Asthma, unspecified asthma severity, unspecified whether complicated, unspecified whether persistent Hypertension, unspecified type Palpitations Neoplasm of bladder Neoplasm of unspecified nature of bladder History of bladder cancer Personal history of malignant neoplasm of bladder 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 documented in this encounter [facility] note* Diagnosis Pre-op evaluation- Primary Preoperative examination, unspecified Neoplasm of bladder Neoplasm of unspecified nature of bladder Asthma, unspecified asthma severity, unspecified whether complicated, unspecified whether persistent Hypertension, unspecified type Palpitations Class 1 obesity with body mass index (BMI) of 31.0 to 31.9 in adult, unspecified obesity type, unspecified whether serious comorbidity present Pre-op evaluation- Primary Preoperative examination, unspecified Malignant neoplasm of urinary bladder, unspecified site (HCC) Class 1 obesity with body mass index (BMI) of 32.0 to 32.9 in adult, unspecified obesity type, unspecified whether serious comorbidity present Type 1 diabetes mellitus with other specified complication (HCC) Asthma, unspecified asthma severity, unspecified whether complicated, unspecified whether persistent Hypertension, unspecified type Palpitations Neoplasm of bladder Neoplasm of unspecified nature of bladder Other hydrocephalus (HCC) 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 documented in this encounter [facility] note* Diagnosis Pre-op evaluation- Primary Preoperative examination, unspecified Neoplasm of bladder Neoplasm of unspecified nature of bladder Asthma, unspecified asthma severity, unspecified whether complicated, unspecified whether persistent Hypertension, unspecified type Palpitations Class 1 obesity with body mass index (BMI) of 31.0 to 31.9 in adult, unspecified obesity type, unspecified whether serious comorbidity present Pre-op evaluation- Primary Preoperative examination, unspecified Malignant neoplasm of urinary bladder, unspecified site (HCC) Class 1 obesity with body mass index (BMI) of 32.0 to 32.9 in adult, unspecified obesity type, unspecified whether serious comorbidity present Type 1 diabetes mellitus with other specified complication (HCC) Asthma, unspecified asthma severity, unspecified whether complicated, unspecified whether persistent Hypertension, unspecified type Palpitations Neoplasm of bladder Neoplasm of unspecified nature of bladder Other hydrocephalus (HCC) 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 [facility]- Primary Preoperative examination, unspecified Neoplasm of bladder Neoplasm of unspecified nature of bladder Asthma, unspecified asthma severity, unspecified whether complicated, unspecified whether persistent Hypertension, unspecified type Palpitations Class 1 obesity with body mass index (BMI) of 31.0 to 31.9 in adult, unspecified obesity type, unspecified whether serious comorbidity present Pre-op evaluation- Primary Preoperative examination, unspecified Malignant neoplasm of urinary bladder, unspecified site (HCC) Class 1 obesity with body mass index (BMI) of 32.0 to 32.9 in adult, unspecified obesity type, unspecified whether serious comorbidity present Type 1 diabetes mellitus with other specified complication ([facility]) Asthma, unspecified asthma severity, unspecified whether complicated, unspecified whether persistent Hypertension, unspecified type Palpitations Neoplasm of bladder Neoplasm of unspecified nature of bladder Hydrocephalus (HCC)- Primary Obstructive hydrocephalus 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 Type 1 diabetes mellitus with hyperglycemia ([facility]) Type I (juvenile type) diabetes mellitus without mention of complication, not stated as uncontrolled Insulin pump in place Insulin pump status Recurrent falls Personal history of fall Tibia/fibula fracture, left, closed, initial encounter Dyslipidemia Other and unspecified hyperlipidemia Essential hypertension Unspecified essential hypertension Fungal meningitis Other and unspecified mycoses Pressure injury of left heel, stage 1 Deep tissue injury Pressure injury of coccygeal region, stage 2 ([facility]) Preop exam for internal medicine Other specified pre-operative examination Pressure injury of deep tissue of left heel Alteration in self-care ability Debility, unspecified Impaired mobility Other ill-defined conditions Risk for falls Personal history of fall S/P exploratory laparotomy Other postprocedural status Pressure injury of deep tissue of left foot Long-term insulin use ([facility]) Encounter for long-term (current) use of insulin Obstructive hydrocephalus ([facility])- Primary Obstructive hydrocephalus Fungal meningitis Other and unspecified mycoses [facility] Diagnosis Pre-op evaluation- Primary Preoperative examination, unspecified Neoplasm of bladder Neoplasm of unspecified nature of bladder Asthma, unspecified asthma severity, unspecified whether complicated, unspecified whether persistent Hypertension, unspecified type Palpitations Class 1 obesity with body mass index (BMI) of 31.0 to 31.9 in adult, unspecified obesity type, unspecified whether serious comorbidity present Pre-op evaluation- Primary Preoperative examination, unspecified Malignant neoplasm of urinary bladder, unspecified site (HCC) Class 1 obesity with body mass index (BMI) of 32.0 to 32.9 in adult, unspecified obesity type, unspecified whether serious comorbidity present Type 1 diabetes mellitus with other specified complication (HCC) Asthma, unspecified asthma severity, unspecified whether complicated, unspecified whether persistent Hypertension, unspecified type Palpitations Neoplasm of bladder Neoplasm of unspecified nature of bladder Hydrocephalus (HCC)- Primary Obstructive hydrocephalus 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 Type 1 diabetes mellitus with hyperglycemia (HCC) Type I (juvenile type) diabetes mellitus without mention of complication, not stated as uncontrolled Insulin pump in place Insulin pump status Recurrent falls Personal history of fall Tibia/fibula fracture, left, closed, initial encounter Dyslipidemia Other and unspecified hyperlipidemia Essential hypertension Unspecified essential hypertension Fungal meningitis Other and unspecified mycoses Pressure injury of left heel, stage 1 Deep tissue injury Pressure injury of coccygeal region, stage 2 (HCC) Preop exam for internal medicine Other specified pre-operative examination Pressure injury of deep tissue of left heel Alteration in self-care ability Debility, unspecified Impaired mobility Other ill-defined conditions Risk for falls Personal history of fall S/P exploratory laparotomy Other postprocedural status Pressure injury of deep tissue of left foot Long-term insulin use ([facility]) Encounter for long-term (current) use of insulin Myelitis (HCC)- Primary Unspecified cause of encephalitis, myelitis, and encephalomyelitis Invasive fungal infection alf (current) use of antibiotics Therapeutic drug monitoring Encounter for therapeutic drug monitoring Muscle spasm of right lower extremity Muscle spasm of left lower extremity NO SHOW 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 [facility] Pre-op evaluation- Primary Preoperative examination, unspecified Neoplasm of bladder Neoplasm of unspecified nature of bladder Asthma, unspecified asthma severity, unspecified whether complicated, unspecified whether persistent Hypertension, unspecified type Palpitations Class 1 obesity with body mass index (BMI) of 31.0 to 31.9 in adult, unspecified obesity type, unspecified whether serious comorbidity present Pre-op evaluation- Primary Preoperative examination, unspecified Malignant neoplasm of urinary bladder, unspecified site (HCC) Class 1 obesity with body mass index (BMI) of 32.0 to 32.9 in adult, unspecified obesity type, unspecified whether serious comorbidity present Type 1 diabetes mellitus with other specified complication (HCC) Asthma, unspecified asthma severity, unspecified whether complicated, unspecified whether persistent Hypertension, unspecified type Palpitations Neoplasm of bladder Neoplasm of unspecified nature of bladder Hydrocephalus (HCC)- Primary Obstructive hydrocephalus 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 Type 1 diabetes mellitus with hyperglycemia (HCC) Type I (juvenile type) diabetes mellitus without mention of complication, not stated as uncontrolled Insulin pump in place Insulin pump status Recurrent falls Personal history of fall Tibia/fibula fracture, left, closed, initial encounter Dyslipidemia Other and unspecified hyperlipidemia Essential hypertension Unspecified essential hypertension Fungal meningitis Other and unspecified mycoses Pressure injury of left heel, stage 1 Deep tissue injury Pressure injury of coccygeal region, stage 2 (HCC) Preop exam for internal medicine Other specified pre-operative examination Pressure injury of deep tissue of left heel Alteration in self-care ability Debility, unspecified Impaired mobility Other ill-defined conditions Risk for falls Personal history of fall S/P exploratory laparotomy Other postprocedural status Pressure injury of deep tissue of left foot Long-term insulin use (HCC) Encounter for long-term (current) use of insulin Tibia/fibula fracture, left, closed, initial encounter- Primary [facility] Diagnosis Pre-op evaluation- Primary Preoperative examination, unspecified Neoplasm of bladder Neoplasm of unspecified nature of bladder Asthma, unspecified asthma severity, unspecified whether complicated, unspecified whether persistent Hypertension, unspecified type Palpitations Class 1 obesity with body mass index (BMI) of 31.0 to 31.9 in adult, unspecified obesity type, unspecified whether serious comorbidity present Pre-op evaluation- Primary Preoperative examination, unspecified Malignant neoplasm of urinary bladder, unspecified site (HCC) Class 1 obesity with body mass index (BMI) of 32.0 to 32.9 in adult, unspecified obesity type, unspecified whether serious comorbidity present Type 1 diabetes mellitus with other specified complication (HCC) Asthma, unspecified asthma severity, unspecified whether complicated, unspecified whether persistent Hypertension, unspecified type Palpitations Neoplasm of bladder Neoplasm of unspecified nature of bladder Hydrocephalus (HCC)- Primary Obstructive hydrocephalus 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 Type 1 diabetes mellitus with hyperglycemia (HCC) Type I (juvenile type) diabetes mellitus without mention of complication, not stated as uncontrolled Insulin pump in place Insulin pump status Recurrent falls Personal history of fall Tibia/fibula fracture, left, closed, initial encounter Dyslipidemia Other and unspecified hyperlipidemia Essential hypertension Unspecified essential hypertension Fungal meningitis Other and unspecified mycoses Pressure injury of left heel, stage 1 Deep tissue injury Pressure injury of coccygeal region, stage 2 (HCC) Preop exam for internal medicine Other specified pre-operative examination Pressure injury of deep tissue of left heel Alteration in self-care ability Debility, unspecified Impaired mobility Other ill-defined conditions Risk for falls Personal history of fall S/P exploratory laparotomy Other postprocedural status Pressure injury of deep tissue of left foot Long-term insulin use ([facility]) Encounter for long-term (current) use of insulin Obstructive hydrocephalus ([facility])- Primary Obstructive hydrocephalus Fungal meningitis Other and unspecified mycoses [facility]* Diagnosis Pre-op evaluation- Primary Preoperative examination, unspecified Neoplasm of bladder Neoplasm of unspecified nature of bladder Asthma, unspecified asthma severity, unspecified whether complicated, unspecified whether persistent Hypertension, unspecified type Palpitations Class 1 obesity with body mass index (BMI) of 31.0 to 31.9 in adult, unspecified obesity type, unspecified whether serious comorbidity present Pre-op evaluation- Primary Preoperative examination, unspecified Malignant neoplasm of urinary bladder, unspecified site ([facility]) Class 1 obesity with body mass index (BMI) of 32.0 to 32.9 in adult, unspecified obesity type, unspecified whether serious comorbidity present Type 1 diabetes mellitus with other specified complication ([facility]) Asthma, unspecified asthma severity, unspecified whether complicated, unspecified whether persistent Hypertension, unspecified type Palpitations Neoplasm of bladder Neoplasm of unspecified nature of bladder Hydrocephalus ([facility])- Primary Obstructive hydrocephalus 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 Type 1 diabetes mellitus with hyperglycemia ([facility]) Type I (juvenile type) diabetes mellitus without mention of complication, not stated as uncontrolled Insulin pump in place Insulin pump status Recurrent falls Personal history of fall Tibia/fibula fracture, left, closed, initial encounter Dyslipidemia Other and unspecified hyperlipidemia Essential hypertension Unspecified essential hypertension Fungal meningitis Other and unspecified mycoses Pressure injury of left heel, stage 1 Deep tissue injury Pressure injury of coccygeal region, stage 2 (HCC) Preop exam for internal medicine Other specified pre-operative examination Pressure injury of deep tissue of left heel Alteration in self-care ability Debility, unspecified Impaired mobility Other ill-defined conditions Risk for falls Personal history of fall S/P exploratory laparotomy Other postprocedural status Pressure injury of deep tissue of left foot Long-term insulin use ([facility]) Encounter for long-term (current) use of insulin Pressure injury of left heel, unstageable (HCC)- Primary Physical deconditioning Debility, unspecified [facility] Diagnosis Pre-op evaluation- Primary Preoperative examination, unspecified Neoplasm of bladder Neoplasm of unspecified nature of bladder Asthma, unspecified asthma severity, unspecified whether complicated, unspecified whether persistent Hypertension, unspecified type Palpitations Class 1 obesity with body mass index (BMI) of 31.0 to 31.9 in adult, unspecified obesity type, unspecified whether serious comorbidity present Pre-op evaluation- Primary Preoperative examination, unspecified Malignant neoplasm of urinary bladder, unspecified site (HCC) Class 1 obesity with body mass index (BMI) of 32.0 to 32.9 in adult, unspecified obesity type, unspecified whether serious comorbidity present Type 1 diabetes mellitus with other specified complication (HCC) Asthma, unspecified asthma severity, unspecified whether complicated, unspecified whether persistent Hypertension, unspecified type Palpitations Neoplasm of bladder Neoplasm of unspecified nature of bladder Hydrocephalus (HCC)- Primary Obstructive hydrocephalus 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 Type 1 diabetes mellitus with hyperglycemia (HCC) Type I (juvenile type) diabetes mellitus without mention of complication, not stated as uncontrolled Insulin pump in place Insulin pump status Recurrent falls Personal history of fall Tibia/fibula fracture, left, closed, initial encounter Dyslipidemia Other and unspecified hyperlipidemia Essential hypertension Unspecified essential hypertension Fungal meningitis Other and unspecified mycoses Pressure injury of left heel, stage 1 Deep tissue injury Pressure injury of coccygeal region, stage 2 ([facility]) Preop exam for internal medicine Other specified pre-operative examination Pressure injury of deep tissue of left heel Alteration in self-care ability Debility, unspecified Impaired mobility Other ill-defined conditions Risk for falls Personal history of fall S/P exploratory laparotomy Other postprocedural status Pressure injury of deep tissue of left foot Long-term insulin use (HCC) Encounter for long-term (current) use of insulin Other hydrocephalus (HCC)- Primary [facility] Diagnosis Pre-op evaluation- Primary Preoperative examination, unspecified Neoplasm of bladder Neoplasm of unspecified nature of bladder Asthma, unspecified asthma severity, unspecified whether complicated, unspecified whether persistent Hypertension, unspecified type Palpitations Class 1 obesity with body mass index (BMI) of 31.0 to 31.9 in adult, unspecified obesity type, unspecified whether serious comorbidity present Pre-op evaluation- Primary Preoperative examination, unspecified Malignant neoplasm of urinary bladder, unspecified site (HCC) Class 1 obesity with body mass index (BMI) of 32.0 to 32.9 in adult, unspecified obesity type, unspecified whether serious comorbidity present Type 1 diabetes mellitus with other specified complication (HCC) Asthma, unspecified asthma severity, unspecified whether complicated, unspecified whether persistent Hypertension, unspecified type Palpitations Neoplasm of bladder Neoplasm of unspecified nature of bladder History of bladder cancer Personal history of malignant neoplasm of bladder Abdominal pain, unspecified abdominal location Malignant neoplasm of urinary bladder, unspecified site (HCC) 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 [facility] Diagnosis Pre-op evaluation- Primary Preoperative examination, unspecified Neoplasm of bladder Neoplasm of unspecified nature of bladder Asthma, unspecified asthma severity, unspecified whether complicated, unspecified whether persistent Hypertension, unspecified type Palpitations Class 1 obesity with body mass index (BMI) of 31.0 to 31.9 in adult, unspecified obesity type, unspecified whether serious comorbidity present Pre-op evaluation- Primary Preoperative examination, unspecified Malignant neoplasm of urinary bladder, unspecified site (HCC) Class 1 obesity with body mass index (BMI) of 32.0 to 32.9 in adult, unspecified obesity type, unspecified whether serious comorbidity present Type 1 diabetes mellitus with other specified complication (HCC) Asthma, unspecified asthma severity, unspecified whether complicated, unspecified whether persistent Hypertension, unspecified type Palpitations Neoplasm of bladder Neoplasm of unspecified nature of bladder Hydrocephalus (HCC)- Primary Obstructive hydrocephalus 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 Type 1 diabetes mellitus with hyperglycemia (HCC) Type I (juvenile type) diabetes mellitus without mention of complication, not stated as uncontrolled Insulin pump in place Insulin pump status Recurrent falls Personal history of fall Tibia/fibula fracture, left, closed, initial encounter Dyslipidemia Other and unspecified hyperlipidemia Essential hypertension Unspecified essential hypertension Fungal meningitis Other and unspecified mycoses Pressure injury of left heel, stage 1 Deep tissue injury Pressure injury of coccygeal region, stage 2 (HCC) Preop exam for internal medicine Other specified pre-operative examination Pressure injury of deep tissue of left heel Alteration in self-care ability Debility, unspecified Impaired mobility Other ill-defined conditions Risk for falls Personal history of fall S/P exploratory laparotomy Other postprocedural status Pressure injury of deep tissue of left foot Long-term insulin use (HCC) Encounter for long-term (current) use of insulin Other hydrocephalus (HCC) [facility] Diagnosis Pre-op evaluation- Primary Preoperative examination, unspecified Neoplasm of bladder Neoplasm of unspecified nature of bladder Asthma, unspecified asthma severity, unspecified whether complicated, unspecified whether persistent Hypertension, unspecified type Palpitations Class 1 obesity with body mass index (BMI) of 31.0 to 31.9 in adult, unspecified obesity type, unspecified whether serious comorbidity present Pre-op evaluation- Primary Preoperative examination, unspecified Malignant neoplasm of urinary bladder, unspecified site (HCC) Class 1 obesity with body mass index (BMI) of 32.0 to 32.9 in adult, unspecified obesity type, unspecified whether serious comorbidity present Type 1 diabetes mellitus with other specified complication (HCC) Asthma, unspecified asthma severity, unspecified whether complicated, unspecified whether persistent Hypertension, unspecified type Palpitations Neoplasm of bladder Neoplasm of unspecified nature of bladder Hydrocephalus (HCC)- Primary Obstructive hydrocephalus 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 Type 1 diabetes mellitus with hyperglycemia (HCC) Type I (juvenile type) diabetes mellitus without mention of complication, not stated as uncontrolled Insulin pump in place Insulin pump status Recurrent falls Personal history of fall Tibia/fibula fracture, left, closed, initial encounter Dyslipidemia Other and unspecified hyperlipidemia Essential hypertension Unspecified essential hypertension Fungal meningitis Other and unspecified mycoses Pressure injury of left heel, stage 1 Deep tissue injury Pressure injury of coccygeal region, stage 2 (HCC) Preop exam for internal medicine Other specified pre-operative examination Pressure injury of deep tissue of left heel Alteration in self-care ability Debility, unspecified Impaired mobility Other ill-defined conditions Risk for falls Personal history of fall S/P exploratory laparotomy Other postprocedural status Pressure injury of deep tissue of left foot Long-term insulin use (HCC) Encounter for long-term (current) use of insulin Tibia/fibula fracture, left, closed, initial encounter [facility] Diagnosis Pre-op evaluation- Primary Preoperative examination, unspecified Neoplasm of bladder Neoplasm of unspecified nature of bladder Asthma, unspecified asthma severity, unspecified whether complicated, unspecified whether persistent Hypertension, unspecified type Palpitations Class 1 obesity with body mass index (BMI) of 31.0 to 31.9 in adult, unspecified obesity type, unspecified whether serious comorbidity present Malignant neoplasm of urinary bladder, unspecified site (HCC) Pre-op evaluation- Primary Preoperative examination, unspecified Malignant neoplasm of urinary bladder, unspecified site (HCC) Class 1 obesity with body mass index (BMI) of 32.0 to 32.9 in adult, unspecified obesity type, unspecified whether serious comorbidity present Type 1 diabetes mellitus with other specified complication (HCC) Asthma, unspecified asthma severity, unspecified whether complicated, unspecified whether persistent Hypertension, unspecified type Palpitations Neoplasm of bladder Neoplasm of unspecified nature of bladder 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 documented in this encounter [facility] note* Diagnosis Pre-op evaluation- Primary Preoperative examination, unspecified Neoplasm of bladder Neoplasm of unspecified nature of bladder Asthma, unspecified asthma severity, unspecified whether complicated, unspecified whether persistent Hypertension, unspecified type Palpitations Class 1 obesity with body mass index (BMI) of 31.0 to 31.9 in adult, unspecified obesity type, unspecified whether serious comorbidity present Pre-op evaluation- Primary Preoperative examination, unspecified Malignant neoplasm of urinary bladder, unspecified site (HCC) Class 1 obesity with body mass index (BMI) of 32.0 to 32.9 in adult, unspecified obesity type, unspecified whether serious comorbidity present Type 1 diabetes mellitus with other specified complication (HCC) Asthma, unspecified asthma severity, unspecified whether complicated, unspecified whether persistent Hypertension, unspecified type Palpitations Neoplasm of bladder Neoplasm of unspecified nature of bladder Hydrocephalus (HCC)- Primary Obstructive hydrocephalus 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 Type 1 diabetes mellitus with hyperglycemia (HCC) Type I (juvenile type) diabetes mellitus without mention of complication, not stated as uncontrolled Insulin pump in place Insulin pump status Recurrent falls Personal history of fall Tibia/fibula fracture, left, closed, initial encounter Dyslipidemia Other and unspecified hyperlipidemia Essential hypertension Unspecified essential hypertension Fungal meningitis Other and unspecified mycoses Pressure injury of left heel, stage 1 Deep tissue injury Pressure injury of coccygeal region, stage 2 (HCC) Preop exam for internal medicine Other specified pre-operative examination Pressure injury of deep tissue of left heel Alteration in self-care ability Debility, unspecified Impaired mobility Other ill-defined conditions Risk for falls Personal history of fall S/P exploratory laparotomy Other postprocedural status Pressure injury of deep tissue of left foot Long-term insulin use (HCC) Encounter for long-term (current) use of insulin Obstructive hydrocephalus (HCC)- Primary Obstructive hydrocephalus Fungal meningitis Other and unspecified mycoses documented in this encounter [facility] note* Diagnosis Pre-op evaluation- Primary Preoperative examination, unspecified Neoplasm of bladder Neoplasm of unspecified nature of bladder Asthma, unspecified asthma severity, unspecified whether complicated, unspecified whether persistent Hypertension, unspecified type Palpitations Class 1 obesity with body mass index (BMI) of 31.0 to 31.9 in adult, unspecified obesity type, unspecified whether serious comorbidity present Pre-op evaluation- Primary Preoperative examination, unspecified Malignant neoplasm of urinary bladder, unspecified site ([facility]) Class 1 obesity with body mass index (BMI) of 32.0 to 32.9 in adult, unspecified obesity type, unspecified whether serious comorbidity present Type 1 diabetes mellitus with other specified complication ([facility]) Asthma, unspecified asthma severity, unspecified whether complicated, unspecified whether persistent Hypertension, unspecified type Palpitations Neoplasm of bladder Neoplasm of unspecified nature of bladder Hydrocephalus (HCC)- Primary Obstructive hydrocephalus 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 Type 1 diabetes mellitus with hyperglycemia ([facility]) Type I (juvenile type) diabetes mellitus without mention of complication, not stated as uncontrolled Insulin pump in place Insulin pump status Recurrent falls Personal history of fall Tibia/fibula fracture, left, closed, initial encounter Dyslipidemia Other and unspecified hyperlipidemia Essential hypertension Unspecified essential hypertension Fungal meningitis Other and unspecified mycoses Pressure injury of left heel, stage 1 Deep tissue injury Pressure injury of coccygeal region, stage 2 ([facility]) Preop exam for internal medicine Other specified pre-operative examination Pressure injury of deep tissue of left heel Alteration in self-care ability Debility, unspecified Impaired mobility Other ill-defined conditions Risk for falls Personal history of fall S/P exploratory laparotomy Other postprocedural status Pressure injury of deep tissue of left foot Long-term insulin use ([facility]) Encounter for long-term (current) use of insulin Obstructive hydrocephalus ([facility])- Primary Obstructive hydrocephalus Fungal meningitis Other and unspecified mycoses Essential hypertension Unspecified essential hypertension Tibia/fibula fracture, left, closed, initial encounter Diabetes mellitus type 1, controlled, without complications (HCC) Type I (juvenile type) diabetes mellitus without mention of complication, not stated as uncontrolled documented in this encounter [facility] note* Diagnosis Pre-op evaluation- Primary Preoperative examination, unspecified Neoplasm of bladder Neoplasm of unspecified nature of bladder Asthma, unspecified asthma severity, unspecified whether complicated, unspecified whether persistent Hypertension, unspecified type Palpitations Class 1 obesity with body mass index (BMI) of 31.0 to 31.9 in adult, unspecified obesity type, unspecified whether serious comorbidity present Pre-op evaluation- Primary Preoperative examination, unspecified Malignant neoplasm of urinary bladder, unspecified site (HCC) Class 1 obesity with body mass index (BMI) of 32.0 to 32.9 in adult, unspecified obesity type, unspecified whether serious comorbidity present Type 1 diabetes mellitus with other specified complication (HCC) Asthma, unspecified asthma severity, unspecified whether complicated, unspecified whether persistent Hypertension, unspecified type Palpitations Neoplasm of bladder Neoplasm of unspecified nature of bladder Hydrocephalus (HCC)- Primary Obstructive hydrocephalus 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 Type 1 diabetes mellitus with hyperglycemia (HCC) Type I (juvenile type) diabetes mellitus without mention of complication, not stated as uncontrolled Insulin pump in place Insulin pump status Recurrent falls Personal history of fall Tibia/fibula fracture, left, closed, initial encounter Dyslipidemia Other and unspecified hyperlipidemia Essential hypertension Unspecified essential hypertension Fungal meningitis Other and unspecified mycoses Pressure injury of left heel, stage 1 Deep tissue injury Pressure injury of coccygeal region, stage 2 ([facility]) Preop exam for internal medicine Other specified pre-operative examination Pressure injury of deep tissue of left heel Alteration in self-care ability Debility, unspecified Impaired mobility Other ill-defined conditions Risk for falls Personal history of fall S/P exploratory laparotomy Other postprocedural status Pressure injury of deep tissue of left foot Long-term insulin use ([facility]) Encounter for long-term (current) use of insulin Obstructive hydrocephalus (HCC)- Primary Obstructive hydrocephalus Fungal meningitis Other and unspecified [facility]coses [facility]- Primary Preoperative examination, unspecified Neoplasm of bladder Neoplasm of unspecified nature of bladder Asthma, unspecified asthma severity, unspecified whether complicated, unspecified whether persistent Hypertension, unspecified type Palpitations Class 1 obesity with body mass index (BMI) of 31.0 to 31.9 in adult, unspecified obesity type, unspecified whether serious comorbidity present Pre-op evaluation- Primary Preoperative examination, unspecified Malignant neoplasm of urinary bladder, unspecified site (HCC) Class 1 obesity with body mass index (BMI) of 32.0 to 32.9 in adult, unspecified obesity type, unspecified whether serious comorbidity present Type 1 diabetes mellitus with other specified complication (HCC) Asthma, unspecified asthma severity, unspecified whether complicated, unspecified whether persistent Hypertension, unspecified type Palpitations Neoplasm of bladder Neoplasm of unspecified nature of bladder Hydrocephalus (HCC)- Primary Obstructive hydrocephalus 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 Type 1 diabetes mellitus with hyperglycemia (HCC) Type I (juvenile type) diabetes mellitus without mention of complication, not stated as uncontrolled Insulin pump in place Insulin pump status Recurrent falls Personal history of fall Tibia/fibula fracture, left, closed, initial encounter Dyslipidemia Other and unspecified hyperlipidemia Essential hypertension Unspecified essential hypertension Fungal meningitis Other and unspecified mycoses Pressure injury of left heel, stage 1 Deep tissue injury Pressure injury of coccygeal region, stage 2 ([facility]) Preop exam for internal medicine Other specified pre-operative examination Pressure injury of deep tissue of left heel Alteration in self-care ability Debility, unspecified Impaired mobility Other ill-defined conditions Risk for falls Personal history of fall S/P exploratory laparotomy Other postprocedural status Pressure injury of deep tissue of left foot Long-term insulin use ([facility]) Encounter for long-term (current) use of insulin Pressure injury of left heel, unstageable ([facility])- Primary Physical deconditioning Debility, unspecified [facility] Pre-op evaluation- Primary Preoperative examination, unspecified Neoplasm of bladder Neoplasm of unspecified nature of bladder Asthma, unspecified asthma severity, unspecified whether complicated, unspecified whether persistent Hypertension, unspecified type Palpitations Class 1 obesity with body mass index (BMI) of 31.0 to 31.9 in adult, unspecified obesity type, unspecified whether serious comorbidity present Pre-op evaluation- Primary Preoperative examination, unspecified Malignant neoplasm of urinary bladder, unspecified site (HCC) Class 1 obesity with body mass index (BMI) of 32.0 to 32.9 in adult, unspecified obesity type, unspecified whether serious comorbidity present Type 1 diabetes mellitus with other specified complication (HCC) Asthma, unspecified asthma severity, unspecified whether complicated, unspecified whether persistent Hypertension, unspecified type Palpitations Neoplasm of bladder Neoplasm of unspecified nature of bladder Hydrocephalus (HCC)- Primary Obstructive hydrocephalus 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 Type 1 diabetes mellitus with hyperglycemia (HCC) Type I (juvenile type) diabetes mellitus without mention of complication, not stated as uncontrolled Insulin pump in place Insulin pump status Recurrent falls Personal history of fall Tibia/fibula fracture, left, closed, initial encounter Dyslipidemia Other and unspecified hyperlipidemia Essential hypertension Unspecified essential hypertension Fungal meningitis Other and unspecified mycoses Pressure injury of left heel, stage 1 Deep tissue injury Pressure injury of coccygeal region, stage 2 (HCC) Preop exam for internal medicine Other specified pre-operative examination Pressure injury of deep tissue of left heel Alteration in self-care ability Debility, unspecified Impaired mobility Other ill-defined conditions Risk for falls Personal history of fall S/P exploratory laparotomy Other postprocedural status Pressure injury of deep tissue of left foot Long-term insulin use ([facility]) Encounter for long-term (current) use of insulin Obstructive hydrocephalus (HCC)- Primary Obstructive hydrocephalus Fungal meningitis Other and unspecified mycoses [facility] Diagnosis Pre-op evaluation- Primary Preoperative examination, unspecified Neoplasm of bladder Neoplasm of unspecified nature of bladder Asthma, unspecified asthma severity, unspecified whether complicated, unspecified whether persistent Hypertension, unspecified type Palpitations Class 1 obesity with body mass index (BMI) of 31.0 to 31.9 in adult, unspecified obesity type, unspecified whether serious comorbidity present Pre-op evaluation- Primary Preoperative examination, unspecified Malignant neoplasm of urinary bladder, unspecified site (HCC) Class 1 obesity with body mass index (BMI) of 32.0 to 32.9 in adult, unspecified obesity type, unspecified whether serious comorbidity present Type 1 diabetes mellitus with other specified complication (HCC) Asthma, unspecified asthma severity, unspecified whether complicated, unspecified whether persistent Hypertension, unspecified type Palpitations Neoplasm of bladder Neoplasm of unspecified nature of bladder Hydrocephalus (HCC)- Primary Obstructive hydrocephalus 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 Type 1 diabetes mellitus with hyperglycemia (HCC) Type I (juvenile type) diabetes mellitus without mention of complication, not stated as uncontrolled Insulin pump in place Insulin pump status Recurrent falls Personal history of fall Tibia/fibula fracture, left, closed, initial encounter Dyslipidemia Other and unspecified hyperlipidemia Essential hypertension Unspecified essential hypertension Fungal meningitis Other and unspecified mycoses Pressure injury of left heel, stage 1 Deep tissue injury Pressure injury of coccygeal region, stage 2 (HCC) Preop exam for internal medicine Other specified pre-operative examination Pressure injury of deep tissue of left heel Alteration in self-care ability Debility, unspecified Impaired mobility Other ill-defined conditions Risk for falls Personal history of fall S/P exploratory laparotomy Other postprocedural status Pressure injury of deep tissue of left foot Long-term insulin use (HCC) Encounter for long-term (current) use of insulin Other hydrocephalus (HCC)- Primary [facility] Diagnosis Pre-op evaluation- Primary Preoperative examination, unspecified Neoplasm of bladder Neoplasm of unspecified nature of bladder Asthma, unspecified asthma severity, unspecified whether complicated, unspecified whether persistent Hypertension, unspecified type Palpitations Class 1 obesity with body mass index (BMI) of 31.0 to 31.9 in adult, unspecified obesity type, unspecified whether serious comorbidity present Pre-op evaluation- Primary Preoperative examination, unspecified Malignant neoplasm of urinary bladder, unspecified site ([facility]) Class 1 obesity with body mass index (BMI) of 32.0 to 32.9 in adult, unspecified obesity type, unspecified whether serious comorbidity present Type 1 diabetes mellitus with other specified complication ([facility]) Asthma, unspecified asthma severity, unspecified whether complicated, unspecified whether persistent Hypertension, unspecified type Palpitations Neoplasm of bladder Neoplasm of unspecified nature of bladder Hydrocephalus (HCC)- Primary Obstructive hydrocephalus 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 Type 1 diabetes mellitus with hyperglycemia ([facility]) Type I (juvenile type) diabetes mellitus without mention of complication, not stated as uncontrolled Insulin pump in place Insulin pump status Recurrent falls Personal history of fall Tibia/fibula fracture, left, closed, initial encounter Dyslipidemia Other and unspecified hyperlipidemia Essential hypertension Unspecified essential hypertension Fungal meningitis Other and unspecified mycoses Pressure injury of left heel, stage 1 Deep tissue injury Pressure injury of coccygeal region, stage 2 ([facility]) Preop exam for internal medicine Other specified pre-operative examination Pressure injury of deep tissue of left heel Alteration in self-care ability Debility, unspecified Impaired mobility Other ill-defined conditions Risk for falls Personal history of fall S/P exploratory laparotomy Other postprocedural status Pressure injury of deep tissue of left foot Long-term insulin use (HCC) Encounter for long-term (current) use of insulin Pressure injury of left heel, unstageable ([facility])- Primary Physical deconditioning Debility, unspecified documented in this encounter [facility] note* Diagnosis Pre-op evaluation- Primary Preoperative examination, unspecified Neoplasm of bladder Neoplasm of unspecified nature of bladder Asthma, unspecified asthma severity, unspecified whether complicated, unspecified whether persistent Hypertension, unspecified type Palpitations Class 1 obesity with body mass index (BMI) of 31.0 to 31.9 in adult, unspecified obesity type, unspecified whether serious comorbidity present Pre-op evaluation- Primary Preoperative examination, unspecified Malignant neoplasm of urinary bladder, unspecified site (HCC) Class 1 obesity with body mass index (BMI) of 32.0 to 32.9 in adult, unspecified obesity type, unspecified whether serious comorbidity present Type 1 diabetes mellitus with other specified complication (HCC) Asthma, unspecified asthma severity, unspecified whether complicated, unspecified whether persistent Hypertension, unspecified type Palpitations Neoplasm of bladder Neoplasm of unspecified nature of bladder Hydrocephalus (HCC)- Primary Obstructive hydrocephalus 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 Type 1 diabetes mellitus with hyperglycemia (HCC) Type I (juvenile type) diabetes mellitus without mention of complication, not stated as uncontrolled Insulin pump in place Insulin pump status Recurrent falls Personal history of fall Tibia/fibula fracture, left, closed, initial encounter Dyslipidemia Other and unspecified hyperlipidemia Essential hypertension Unspecified essential hypertension Fungal meningitis Other and unspecified mycoses Pressure injury of left heel, stage 1 Deep tissue injury Pressure injury of coccygeal region, stage 2 ([facility]) Preop exam for internal medicine Other specified pre-operative examination Pressure injury of deep tissue of left heel Alteration in self-care ability Debility, unspecified Impaired mobility Other ill-defined conditions Risk for falls Personal history of fall S/P exploratory laparotomy Other postprocedural status Pressure injury of deep tissue of left foot Long-term insulin use ([facility]) Encounter for long-term (current) use of insulin Obstructive hydrocephalus (HCC)- Primary Obstructive hydrocephalus Fungal meningitis Other and unspecified mycoses Bilateral lower extremity edema Edema [facility] Diagnosis Pre-op evaluation- Primary Preoperative examination, unspecified Neoplasm of bladder Neoplasm of unspecified nature of bladder Asthma, unspecified asthma severity, unspecified whether complicated, unspecified whether persistent Hypertension, unspecified type Palpitations Class 1 obesity with body mass index (BMI) of 31.0 to 31.9 in adult, unspecified obesity type, unspecified whether serious comorbidity present Pre-op evaluation- Primary Preoperative examination, unspecified Malignant neoplasm of urinary bladder, unspecified site (HCC) Class 1 obesity with body mass index (BMI) of 32.0 to 32.9 in adult, unspecified obesity type, unspecified whether serious comorbidity present Type 1 diabetes mellitus with other specified complication (HCC) Asthma, unspecified asthma severity, unspecified whether complicated, unspecified whether persistent Hypertension, unspecified type Palpitations Neoplasm of bladder Neoplasm of unspecified nature of bladder Hydrocephalus (HCC)- Primary Obstructive hydrocephalus 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 Type 1 diabetes mellitus with hyperglycemia (HCC) Type I (juvenile type) diabetes mellitus without mention of complication, not stated as uncontrolled Insulin pump in place Insulin pump status Recurrent falls Personal history of fall Tibia/fibula fracture, left, closed, initial encounter Dyslipidemia Other and unspecified hyperlipidemia Essential hypertension Unspecified essential hypertension Fungal meningitis Other and unspecified mycoses Pressure injury of left heel, stage 1 Deep tissue injury Pressure injury of coccygeal region, stage 2 (HCC) Preop exam for internal medicine Other specified pre-operative examination Pressure injury of deep tissue of left heel Alteration in self-care ability Debility, unspecified Impaired mobility Other ill-defined conditions Risk for falls Personal history of fall S/P exploratory laparotomy Other postprocedural status Pressure injury of deep tissue of left foot Long-term insulin use (HCC) Encounter for long-term (current) use of insulin Fungal meningitis- Primary Other and unspecified mycoses Myelitis (HCC) Unspecified cause of encephalitis, myelitis, and encephalomyelitis Invasive fungal infection Muscle spasm of left lower extremity 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 meterman (current) use of antibiotics 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 [facility] Diagnosis Pre-op evaluation- Primary Preoperative examination, unspecified Neoplasm of bladder Neoplasm of unspecified nature of bladder Asthma, unspecified asthma severity, unspecified whether complicated, unspecified whether persistent Hypertension, unspecified type Palpitations Class 1 obesity with body mass index (BMI) of 31.0 to 31.9 in adult, unspecified obesity type, unspecified whether serious comorbidity present Pre-op evaluation- Primary Preoperative examination, unspecified Malignant neoplasm of urinary bladder, unspecified site (HCC) Class 1 obesity with body mass index (BMI) of 32.0 to 32.9 in adult, unspecified obesity type, unspecified whether serious comorbidity present Type 1 diabetes mellitus with other specified complication (HCC) Asthma, unspecified asthma severity, unspecified whether complicated, unspecified whether persistent Hypertension, unspecified type Palpitations Neoplasm of bladder Neoplasm of unspecified nature of bladder Hydrocephalus (HCC)- Primary Obstructive hydrocephalus 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 Type 1 diabetes mellitus with hyperglycemia (HCC) Type I (juvenile type) diabetes mellitus without mention of complication, not stated as uncontrolled Insulin pump in place Insulin pump status Recurrent falls Personal history of fall Tibia/fibula fracture, left, closed, initial encounter Dyslipidemia Other and unspecified hyperlipidemia Essential hypertension Unspecified essential hypertension Fungal meningitis Other and unspecified mycoses Pressure injury of left heel, stage 1 Deep tissue injury Pressure injury of coccygeal region, stage 2 (HCC) Preop exam for internal medicine Other specified pre-operative examination Pressure injury of deep tissue of left heel Alteration in self-care ability Debility, unspecified Impaired mobility Other ill-defined conditions Risk for falls Personal history of fall S/P exploratory laparotomy Other postprocedural status Pressure injury of deep tissue of left foot Long-term insulin use (HCC) Encounter for long-term (current) use of insulin Fungal meningitis- Primary Other and unspecified mycoses [facility] Pre-[facility]- Primary Preoperative examination, unspecified Neoplasm of bladder Neoplasm of unspecified nature of bladder Asthma, unspecified asthma severity, unspecified whether complicated, unspecified whether persistent Hypertension, unspecified type Palpitations Class 1 obesity with body mass index (BMI) of 31.0 to 31.9 in adult, unspecified obesity type, unspecified whether serious comorbidity present Pre-op evaluation- Primary Preoperative examination, unspecified Malignant neoplasm of urinary bladder, unspecified site (HCC) Class 1 obesity with body mass index (BMI) of 32.0 to 32.9 in adult, unspecified obesity type, unspecified whether serious comorbidity present Type 1 diabetes mellitus with other specified complication (HCC) Asthma, unspecified asthma severity, unspecified whether complicated, unspecified whether persistent Hypertension, unspecified type Palpitations Neoplasm of bladder Neoplasm of unspecified nature of bladder Hydrocephalus (HCC)- Primary Obstructive hydrocephalus 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 Type 1 diabetes mellitus with hyperglycemia (HCC) Type I (juvenile type) diabetes mellitus without mention of complication, not stated as uncontrolled Insulin pump in place Insulin pump status Recurrent falls Personal history of fall Tibia/fibula fracture, left, closed, initial encounter Dyslipidemia Other and unspecified hyperlipidemia Essential hypertension Unspecified essential hypertension Fungal meningitis Other and unspecified mycoses Pressure injury of left heel, stage 1 Deep tissue injury Pressure injury of coccygeal region, stage 2 (HCC) Preop exam for internal medicine Other specified pre-operative examination Pressure injury of deep tissue of left heel Alteration in self-care ability Debility, unspecified Impaired mobility Other ill-defined conditions Risk for falls Personal history of fall S/P exploratory laparotomy Other postprocedural status Pressure injury of deep tissue of left foot Long-term insulin use (HCC) Encounter for long-term (current) use of insulin Controlled type 1 diabetes with neuropathy ([facility])- Primary Type I (juvenile type) diabetes mellitus with neurological manifestations, not stated as uncontrolled Elevated alkaline phosphatase level Other nonspecific abnormal serum enzyme levels Type 1 diabetes mellitus with hypoglycaemia (HCC) 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) Insulin pump status Insulin pump titration Fitting and adjustment of insulin pump [facility] Pre-op evaluation- Primary Preoperative examination, unspecified Neoplasm of bladder Neoplasm of unspecified nature of bladder Asthma, unspecified asthma severity, unspecified whether complicated, unspecified whether persistent Hypertension, unspecified type Palpitations Class 1 obesity with body mass index (BMI) of 31.0 to 31.9 in adult, unspecified obesity type, unspecified whether serious comorbidity present Pre-op evaluation- Primary Preoperative examination, unspecified Malignant neoplasm of urinary bladder, unspecified site ([facility]) Class 1 obesity with body mass index (BMI) of 32.0 to 32.9 in adult, unspecified obesity type, unspecified whether serious comorbidity present Type 1 diabetes mellitus with other specified complication (HCC) Asthma, unspecified asthma severity, unspecified whether complicated, unspecified whether persistent Hypertension, unspecified type Palpitations Neoplasm of bladder Neoplasm of unspecified nature of bladder Hydrocephalus (HCC)- Primary Obstructive hydrocephalus 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 Type 1 diabetes mellitus with hyperglycemia (HCC) Type I (juvenile type) diabetes mellitus without mention of complication, not stated as uncontrolled Insulin pump in place Insulin pump status Recurrent falls Personal history of fall Tibia/fibula fracture, left, closed, initial encounter Dyslipidemia Other and unspecified hyperlipidemia Essential hypertension Unspecified essential hypertension Fungal meningitis Other and unspecified mycoses Pressure injury of left heel, stage 1 Deep tissue injury Pressure injury of coccygeal region, stage 2 (HCC) Preop exam for internal medicine Other specified pre-operative examination Pressure injury of deep tissue of left heel Alteration in self-care ability Debility, unspecified Impaired mobility Other ill-defined conditions Risk for falls Personal history of fall S/P exploratory laparotomy Other postprocedural status Pressure injury of deep tissue of left foot Long-term insulin use (HCC) Encounter for long-term (current) use of insulin Obstructive hydrocephalus (HCC)- Primary Obstructive hydrocephalus Fungal meningitis Other and unspecified mycoses Bilateral lower extremity edema Edema Essential hypertension Unspecified essential hypertension Diabetes mellitus type 1, controlled, without complications (HCC) Type I (juvenile type) diabetes mellitus without mention of complication, not stated as uncontrolled Malignant neoplasm of urinary bladder, unspecified site (HCC) [facility] Diagnosis Pre-op evaluation- Primary Preoperative examination, unspecified Neoplasm of bladder Neoplasm of unspecified nature of bladder Asthma, unspecified asthma severity, unspecified whether complicated, unspecified whether persistent Hypertension, unspecified type Palpitations Class 1 obesity with body mass index (BMI) of 31.0 to 31.9 in adult, unspecified obesity type, unspecified whether serious comorbidity present Pre-op evaluation- Primary Preoperative examination, unspecified Malignant neoplasm of urinary bladder, unspecified site (HCC) Class 1 obesity with body mass index (BMI) of 32.0 to 32.9 in adult, unspecified obesity type, unspecified whether serious comorbidity present Type 1 diabetes mellitus with other specified complication (HCC) Asthma, unspecified asthma severity, unspecified whether complicated, unspecified whether persistent Hypertension, unspecified type Palpitations Neoplasm of bladder Neoplasm of unspecified nature of bladder Hydrocephalus (HCC)- Primary Obstructive hydrocephalus 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 Type 1 diabetes mellitus with hyperglycemia (HCC) Type I (juvenile type) diabetes mellitus without mention of complication, not stated as uncontrolled Insulin pump in place Insulin pump status Recurrent falls Personal history of fall Tibia/fibula fracture, left, closed, initial encounter Dyslipidemia Other and unspecified hyperlipidemia Essential hypertension Unspecified essential hypertension Fungal meningitis Other and unspecified mycoses Pressure injury of left heel, stage 1 Deep tissue injury Pressure injury of coccygeal region, stage 2 (HCC) Preop exam for internal medicine Other specified pre-operative examination Pressure injury of deep tissue of left heel Alteration in self-care ability Debility, unspecified Impaired mobility Other ill-defined conditions Risk for falls Personal history of fall S/P exploratory laparotomy Other postprocedural status Pressure injury of deep tissue of left foot Long-term insulin use (HCC) Encounter for long-term (current) use of insulin 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 Myelitis (HCC) Unspecified cause of encephalitis, myelitis, and encephalomyelitis Impaired mobility and activities of daily living Other ill-defined conditions documented in this encounter [facility] note* Diagnosis Pre-op evaluation- Primary Preoperative examination, unspecified Neoplasm of bladder Neoplasm of unspecified nature of bladder Asthma, unspecified asthma severity, unspecified whether complicated, unspecified whether persistent Hypertension, unspecified type Palpitations Class 1 obesity with body mass index (BMI) of 31.0 to 31.9 in adult, unspecified obesity type, unspecified whether serious comorbidity present Pre-op evaluation- Primary Preoperative examination, unspecified Malignant neoplasm of urinary bladder, unspecified site (HCC) Class 1 obesity with body mass index (BMI) of 32.0 to 32.9 in adult, unspecified obesity type, unspecified whether serious comorbidity present Type 1 diabetes mellitus with other specified complication (HCC) Asthma, unspecified asthma severity, unspecified whether complicated, unspecified whether persistent Hypertension, unspecified type Palpitations Neoplasm of bladder Neoplasm of unspecified nature of bladder Hydrocephalus (HCC)- Primary Obstructive hydrocephalus 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 Type 1 diabetes mellitus with hyperglycemia (HCC) Type I (juvenile type) diabetes mellitus without mention of complication, not stated as uncontrolled Insulin pump in place Insulin pump status Recurrent falls Personal history of fall Tibia/fibula fracture, left, closed, initial encounter Dyslipidemia Other and unspecified hyperlipidemia Essential hypertension Unspecified essential hypertension Fungal meningitis Other and unspecified mycoses Pressure injury of left heel, stage 1 Deep tissue injury Pressure injury of coccygeal region, stage 2 (HCC) Preop exam for internal medicine Other specified pre-operative examination Pressure injury of deep tissue of left heel Alteration in self-care ability Debility, unspecified Impaired mobility Other ill-defined conditions Risk for falls Personal history of fall S/P exploratory laparotomy Other postprocedural status Pressure injury of deep tissue of left foot Long-term insulin use ([facility]) Encounter for long-term (current) use of insulin 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 Myelitis (HCC) Unspecified cause of encephalitis, myelitis, and encephalomyelitis Impaired mobility and activities of daily living Other ill-defined conditions documented in this encounter [facility] note* Diagnosis Pre-op evaluation- Primary Preoperative examination, unspecified Neoplasm of bladder Neoplasm of unspecified nature of bladder Asthma, unspecified asthma severity, unspecified whether complicated, unspecified whether persistent Hypertension, unspecified type Palpitations Class 1 obesity with body mass index (BMI) of 31.0 to 31.9 in adult, unspecified obesity type, unspecified whether serious comorbidity present Pre-op evaluation- Primary Preoperative examination, unspecified Malignant neoplasm of urinary bladder, unspecified site (HCC) Class 1 obesity with body mass index (BMI) of 32.0 to 32.9 in adult, unspecified obesity type, unspecified whether serious comorbidity present Type 1 diabetes mellitus with other specified complication (HCC) Asthma, unspecified asthma severity, unspecified whether complicated, unspecified whether persistent Hypertension, unspecified type Palpitations Neoplasm of bladder Neoplasm of unspecified nature of bladder Hydrocephalus (HCC)- Primary Obstructive hydrocephalus 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 Type 1 diabetes mellitus with hyperglycemia (HCC) Type I (juvenile type) diabetes mellitus without mention of complication, not stated as uncontrolled Insulin pump in place Insulin pump status Recurrent falls Personal history of fall Tibia/fibula fracture, left, closed, initial encounter Dyslipidemia Other and unspecified hyperlipidemia Essential hypertension Unspecified essential hypertension Fungal meningitis Other and unspecified mycoses Pressure injury of left heel, stage 1 Deep tissue injury Pressure injury of coccygeal region, stage 2 (HCC) Preop exam for internal medicine Other specified pre-operative examination Pressure injury of deep tissue of left heel Alteration in self-care ability Debility, unspecified Impaired mobility Other ill-defined conditions Risk for falls Personal history of fall S/P exploratory laparotomy Other postprocedural status Pressure injury of deep tissue of left foot Long-term insulin use (HCC) Encounter for long-term (current) use of insulin 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 Myelitis (HCC) Unspecified cause of encephalitis, myelitis, and encephalomyelitis Impaired mobility and activities of daily living Other ill-defined conditions [facility] Diagnosis Pre-op evaluation- Primary Preoperative examination, unspecified Neoplasm of bladder Neoplasm of unspecified nature of bladder Asthma, unspecified asthma severity, unspecified whether complicated, unspecified whether persistent Hypertension, unspecified type Palpitations Class 1 obesity with body mass index (BMI) of 31.0 to 31.9 in adult, unspecified obesity type, unspecified whether serious comorbidity present Pre-op evaluation- Primary Preoperative examination, unspecified Malignant neoplasm of urinary bladder, unspecified site (HCC) Class 1 obesity with body mass index (BMI) of 32.0 to 32.9 in adult, unspecified obesity type, unspecified whether serious comorbidity present Type 1 diabetes mellitus with other specified complication (HCC) Asthma, unspecified asthma severity, unspecified whether complicated, unspecified whether persistent Hypertension, unspecified type Palpitations Neoplasm of bladder Neoplasm of unspecified nature of bladder Hydrocephalus (HCC)- Primary Obstructive hydrocephalus 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 Type 1 diabetes mellitus with hyperglycemia (HCC) Type I (juvenile type) diabetes mellitus without mention of complication, not stated as uncontrolled Insulin pump in place Insulin pump status Recurrent falls Personal history of fall Tibia/fibula fracture, left, closed, initial encounter Dyslipidemia Other and unspecified hyperlipidemia Essential hypertension Unspecified essential hypertension Fungal meningitis Other and unspecified mycoses Pressure injury of left heel, stage 1 Deep tissue injury Pressure injury of coccygeal region, stage 2 (HCC) Preop exam for internal medicine Other specified pre-operative examination Pressure injury of deep tissue of left heel Alteration in self-care ability Debility, unspecified Impaired mobility Other ill-defined conditions Risk for falls Personal history of fall S/P exploratory laparotomy Other postprocedural status Pressure injury of deep tissue of left foot Long-term insulin use (HCC) Encounter for long-term (current) use of insulin 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 Spasticity Abnormal involuntary movements [facility] Diagnosis Pre-op evaluation- Primary Preoperative examination, unspecified Neoplasm of bladder Neoplasm of unspecified nature of bladder Asthma, unspecified asthma severity, unspecified whether complicated, unspecified whether persistent Hypertension, unspecified type Palpitations Class 1 obesity with body mass index (BMI) of 31.0 to 31.9 in adult, unspecified obesity type, unspecified whether serious comorbidity present Pre-op evaluation- Primary Preoperative examination, unspecified Malignant neoplasm of urinary bladder, unspecified site (HCC) Class 1 obesity with body mass index (BMI) of 32.0 to 32.9 in adult, unspecified obesity type, unspecified whether serious comorbidity present Type 1 diabetes mellitus with other specified complication (HCC) Asthma, unspecified asthma severity, unspecified whether complicated, unspecified whether persistent Hypertension, unspecified type Palpitations Neoplasm of bladder Neoplasm of unspecified nature of bladder Hydrocephalus (HCC)- Primary Obstructive hydrocephalus 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 Type 1 diabetes mellitus with hyperglycemia (HCC) Type I (juvenile type) diabetes mellitus without mention of complication, not stated as uncontrolled Insulin pump in place Insulin pump status Recurrent falls Personal history of fall Tibia/fibula fracture, left, closed, initial encounter Dyslipidemia Other and unspecified hyperlipidemia Essential hypertension Unspecified essential hypertension Fungal meningitis Other and unspecified mycoses Pressure injury of left heel, stage 1 Deep tissue injury Pressure injury of coccygeal region, stage 2 (HCC) Preop exam for internal medicine Other specified pre-operative examination Pressure injury of deep tissue of left heel Alteration in self-care ability Debility, unspecified Impaired mobility Other ill-defined conditions Risk for falls Personal history of fall S/P exploratory laparotomy Other postprocedural status Pressure injury of deep tissue of left foot Long-term insulin use (HCC) Encounter for long-term (current) use of insulin 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 [facility] Diagnosis Pre-op evaluation- Primary Preoperative examination, unspecified Neoplasm of bladder Neoplasm of unspecified nature of bladder Asthma, unspecified asthma severity, unspecified whether complicated, unspecified whether persistent Hypertension, unspecified type Palpitations Class 1 obesity with body mass index (BMI) of 31.0 to 31.9 in adult, unspecified obesity type, unspecified whether serious comorbidity present Pre-op evaluation- Primary Preoperative examination, unspecified Malignant neoplasm of urinary bladder, unspecified site (HCC) Class 1 obesity with body mass index (BMI) of 32.0 to 32.9 in adult, unspecified obesity type, unspecified whether serious comorbidity present Type 1 diabetes mellitus with other specified complication (HCC) Asthma, unspecified asthma severity, unspecified whether complicated, unspecified whether persistent Hypertension, unspecified type Palpitations Neoplasm of bladder Neoplasm of unspecified nature of bladder Hydrocephalus (HCC)- Primary Obstructive hydrocephalus 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 Type 1 diabetes mellitus with hyperglycemia (HCC) Type I (juvenile type) diabetes mellitus without mention of complication, not stated as uncontrolled Insulin pump in place Insulin pump status Recurrent falls Personal history of fall Tibia/fibula fracture, left, closed, initial encounter Dyslipidemia Other and unspecified hyperlipidemia Essential hypertension Unspecified essential hypertension Fungal meningitis Other and unspecified mycoses Pressure injury of left heel, stage 1 Deep tissue injury Pressure injury of coccygeal region, stage 2 (HCC) Preop exam for internal medicine Other specified pre-operative examination Pressure injury of deep tissue of left heel Alteration in self-care ability Debility, unspecified Impaired mobility Other ill-defined conditions Risk for falls Personal history of fall S/P exploratory laparotomy Other postprocedural status Pressure injury of deep tissue of left foot Long-term insulin use (HCC) Encounter for long-term (current) use of insulin Obstructive hydrocephalus (HCC)- Primary Obstructive hydrocephalus Fungal meningitis Other and unspecified mycoses 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 Presence of cerebrospinal fluid drainage device Bilateral lower extremity edema Edema Essential hypertension Unspecified essential hypertension Diabetes mellitus type 1, controlled, without complications (HCC) Type I (juvenile type) diabetes mellitus without mention of complication, not stated as uncontrolled Malignant neoplasm of urinary bladder, unspecified site (HCC) documented in this encounter [facility] note* Diagnosis Pre-op evaluation- Primary Preoperative examination, unspecified Neoplasm of bladder Neoplasm of unspecified nature of bladder Asthma, unspecified asthma severity, unspecified whether complicated, unspecified whether persistent Hypertension, unspecified type Palpitations Class 1 obesity with body mass index (BMI) of 31.0 to 31.9 in adult, unspecified obesity type, unspecified whether serious comorbidity present Pre-op evaluation- Primary Preoperative examination, unspecified Malignant neoplasm of urinary bladder, unspecified site (HCC) Class 1 obesity with body mass index (BMI) of 32.0 to 32.9 in adult, unspecified obesity type, unspecified whether serious comorbidity present Type 1 diabetes mellitus with other specified complication (HCC) Asthma, unspecified asthma severity, unspecified whether complicated, unspecified whether persistent Hypertension, unspecified type Palpitations Neoplasm of bladder Neoplasm of unspecified nature of bladder Hydrocephalus (HCC)- Primary Obstructive hydrocephalus 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 Type 1 diabetes mellitus with hyperglycemia (HCC) Type I (juvenile type) diabetes mellitus without mention of complication, not stated as uncontrolled Insulin pump in place Insulin pump status Recurrent falls Personal history of fall Tibia/fibula fracture, left, closed, initial encounter Dyslipidemia Other and unspecified hyperlipidemia Essential hypertension Unspecified essential hypertension Fungal meningitis Other and unspecified mycoses Pressure injury of left heel, stage 1 Deep tissue injury Pressure injury of coccygeal region, stage 2 (HCC) Preop exam for internal medicine Other specified pre-operative examination Pressure injury of deep tissue of left heel Alteration in self-care ability Debility, unspecified Impaired mobility Other ill-defined conditions Risk for falls Personal history of fall S/P exploratory laparotomy Other postprocedural status Pressure injury of deep tissue of left foot Long-term insulin use (HCC) Encounter for long-term (current) use of insulin Ulcer of left foot, unspecified ulcer stage (HCC)- Primary [facility] Diagnosis Onset Date Resolution Status Admit Date Chronic venous insufficiency acuteNov2023 3:46pmHTN (hypertension)acuteNov2023 3:46pm HydrocephalusacuteNov2023 3:46pmTibia fractureacuteFebruary 25, 2024 3:46pmType 1 diabetes mellitus with hyperglycemiaacuteFebruary 25, 2024 3:46pmAcute sinus infectionnoneactiveFebruary 25, 2024 3:46pm [facility] Work Phone: Evaluation note* Diagnosis History of ileal conduit- Primary Small bowel obstruction (HCC) Unspecified intestinal obstruction documented in this encounter [facility] Work Phone: Evaluation note* Diagnosis Small bowel obstruction (HCC)- Primary Unspecified intestinal obstruction Generalized abdominal pain Abdominal pain, generalized Small bowel obstruction (HCC) Unspecified intestinal obstruction Nausea and vomiting, unspecified vomiting type History of ileal conduit Ureter injury, initial encounter Tachycardia, unspecified documented in this encounter [facility] Work Phone: Evaluation note* Diagnosis Small bowel obstruction (HCC)- Primary Unspecified intestinal obstruction documented in this encounter [facility] Work Phone: Evaluation note* Diagnosis Pre-op evaluation- Primary Preoperative examination, unspecified Neoplasm of bladder Neoplasm of unspecified nature of bladder Asthma, unspecified asthma severity, unspecified whether complicated, unspecified whether persistent Hypertension, unspecified type Palpitations Class 1 obesity with body mass index (BMI) of 31.0 to 31.9 in adult, unspecified obesity type, unspecified whether serious comorbidity present Pre-op evaluation- Primary Preoperative examination, unspecified Malignant neoplasm of urinary bladder, unspecified site (HCC) Class 1 obesity with body mass index (BMI) of 32.0 to 32.9 in adult, unspecified obesity type, unspecified whether serious comorbidity present Type 1 diabetes mellitus with other specified complication (HCC) Asthma, unspecified asthma severity, unspecified whether complicated, unspecified whether persistent Hypertension, unspecified type Palpitations Neoplasm of bladder Neoplasm of unspecified nature of bladder Hydrocephalus (HCC)- Primary Obstructive hydrocephalus 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 Type 1 diabetes mellitus with hyperglycemia (HCC) Type I (juvenile type) diabetes mellitus without mention of complication, not stated as uncontrolled Insulin pump in place Insulin pump status Recurrent falls Personal history of fall Tibia/fibula fracture, left, closed, initial encounter Dyslipidemia Other and unspecified hyperlipidemia Essential hypertension Unspecified essential hypertension Fungal meningitis Other and unspecified mycoses Pressure injury of left heel, stage 1 Deep tissue injury Pressure injury of coccygeal region, stage 2 (HCC) Preop exam for internal medicine Other specified pre-operative examination Pressure injury of deep tissue of left heel Alteration in self-care ability Debility, unspecified Impaired mobility Other ill-defined conditions Risk for falls Personal history of fall S/P exploratory laparotomy Other postprocedural status Pressure injury of deep tissue of left foot Long-term insulin use ([facility]) Encounter for long-term (current) use of insulin Spasticity Abnormal involuntary movements [facility] Pre-op evaluation- Primary Preoperative examination, unspecified Neoplasm of bladder Neoplasm of unspecified nature of bladder Asthma, unspecified asthma severity, unspecified whether complicated, unspecified whether persistent Hypertension, unspecified type Palpitations Class 1 obesity with body mass index (BMI) of 31.0 to 31.9 in adult, unspecified obesity type, unspecified whether serious comorbidity present Pre-op evaluation- Primary Preoperative examination, unspecified Malignant neoplasm of urinary bladder, unspecified site (HCC) Class 1 obesity with body mass index (BMI) of 32.0 to 32.9 in adult, unspecified obesity type, unspecified whether serious comorbidity present Type 1 diabetes mellitus with other specified complication (HCC) Asthma, unspecified asthma severity, unspecified whether complicated, unspecified whether persistent Hypertension, unspecified type Palpitations Neoplasm of bladder Neoplasm of unspecified nature of bladder Hydrocephalus (HCC)- Primary Obstructive hydrocephalus 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 Type 1 diabetes mellitus with hyperglycemia (HCC) Type I (juvenile type) diabetes mellitus without mention of complication, not stated as uncontrolled Insulin pump in place Insulin pump status Recurrent falls Personal history of fall Tibia/fibula fracture, left, closed, initial encounter Dyslipidemia Other and unspecified hyperlipidemia Essential hypertension Unspecified essential hypertension Fungal meningitis Other and unspecified mycoses Pressure injury of left heel, stage 1 Deep tissue injury Pressure injury of coccygeal region, stage 2 (HCC) Preop exam for internal medicine Other specified pre-operative examination Pressure injury of deep tissue of left heel Alteration in self-care ability Debility, unspecified Impaired mobility Other ill-defined conditions Risk for falls Personal history of fall S/P exploratory laparotomy Other postprocedural status Pressure injury of deep tissue of left foot Long-term insulin use (HCC) Encounter for long-term (current) use of insulin 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 Spasticity Abnormal involuntary movements [facility] Diagnosis Pre-op evaluation- Primary Preoperative examination, unspecified Neoplasm of bladder Neoplasm of unspecified nature of bladder Asthma, unspecified asthma severity, unspecified whether complicated, unspecified whether persistent Hypertension, unspecified type Palpitations Class 1 obesity with body mass index (BMI) of 31.0 to 31.9 in adult, unspecified obesity type, unspecified whether serious comorbidity present Pre-op evaluation- Primary Preoperative examination, unspecified Malignant neoplasm of urinary bladder, unspecified site (HCC) Class 1 obesity with body mass index (BMI) of 32.0 to 32.9 in adult, unspecified obesity type, unspecified whether serious comorbidity present Type 1 diabetes mellitus with other specified complication (HCC) Asthma, unspecified asthma severity, unspecified whether complicated, unspecified whether persistent Hypertension, unspecified type Palpitations Neoplasm of bladder Neoplasm of unspecified nature of bladder Hydrocephalus (HCC)- Primary Obstructive hydrocephalus 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 Type 1 diabetes mellitus with hyperglycemia (HCC) Type I (juvenile type) diabetes mellitus without mention of complication, not stated as uncontrolled Insulin pump in place Insulin pump status Recurrent falls Personal history of fall Tibia/fibula fracture, left, closed, initial encounter Dyslipidemia Other and unspecified hyperlipidemia Essential hypertension Unspecified essential hypertension Fungal meningitis Other and unspecified mycoses Pressure injury of left heel, stage 1 Deep tissue injury Pressure injury of coccygeal region, stage 2 (HCC) Preop exam for internal medicine Other specified pre-operative examination Pressure injury of deep tissue of left heel Alteration in self-care ability Debility, unspecified Impaired mobility Other ill-defined conditions Risk for falls Personal history of fall S/P exploratory laparotomy Other postprocedural status Pressure injury of deep tissue of left foot Long-term insulin use (HCC) Encounter for long-term (current) use of insulin Disturbance of skin sensation- Primary [facility] Diagnosis Pre-op evaluation- Primary Preoperative examination, unspecified Neoplasm of bladder Neoplasm of unspecified nature of bladder Asthma, unspecified asthma severity, unspecified whether complicated, unspecified whether persistent Hypertension, unspecified type Palpitations Class 1 obesity with body mass index (BMI) of 31.0 to 31.9 in adult, unspecified obesity type, unspecified whether serious comorbidity present Pre-op evaluation- Primary Preoperative examination, unspecified Malignant neoplasm of urinary bladder, unspecified site (HCC) Class 1 obesity with body mass index (BMI) of 32.0 to 32.9 in adult, unspecified obesity type, unspecified whether serious comorbidity present Type 1 diabetes mellitus with other specified complication (HCC) Asthma, unspecified asthma severity, unspecified whether complicated, unspecified whether persistent Hypertension, unspecified type Palpitations Neoplasm of bladder Neoplasm of unspecified nature of bladder Hydrocephalus (HCC)- Primary Obstructive hydrocephalus 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 Type 1 diabetes mellitus with hyperglycemia (HCC) Type I (juvenile type) diabetes mellitus without mention of complication, not stated as uncontrolled Insulin pump in place Insulin pump status Recurrent falls Personal history of fall Tibia/fibula fracture, left, closed, initial encounter Dyslipidemia Other and unspecified hyperlipidemia Essential hypertension Unspecified essential hypertension Fungal meningitis Other and unspecified mycoses Pressure injury of left heel, stage 1 Deep tissue injury Pressure injury of coccygeal region, stage 2 (HCC) Preop exam for internal medicine Other specified pre-operative examination Pressure injury of deep tissue of left heel Alteration in self-care ability Debility, unspecified Impaired mobility Other ill-defined conditions Risk for falls Personal history of fall S/P exploratory laparotomy Other postprocedural status Pressure injury of deep tissue of left foot Long-term insulin use (HCC) Encounter for long-term (current) use of insulin 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 [facility] Diagnosis Pre-op evaluation- Primary Preoperative examination, unspecified Neoplasm of bladder Neoplasm of unspecified nature of bladder Asthma, unspecified asthma severity, unspecified whether complicated, unspecified whether persistent Hypertension, unspecified type Palpitations Class 1 obesity with body mass index (BMI) of 31.0 to 31.9 in adult, unspecified obesity type, unspecified whether serious comorbidity present Pre-op evaluation- Primary Preoperative examination, unspecified Malignant neoplasm of urinary bladder, unspecified site (HCC) Class 1 obesity with body mass index (BMI) of 32.0 to 32.9 in adult, unspecified obesity type, unspecified whether serious comorbidity present Type 1 diabetes mellitus with other specified complication (HCC) Asthma, unspecified asthma severity, unspecified whether complicated, unspecified whether persistent Hypertension, unspecified type Palpitations Neoplasm of bladder Neoplasm of unspecified nature of bladder Hydrocephalus (HCC)- Primary Obstructive hydrocephalus 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 Type 1 diabetes mellitus with hyperglycemia (HCC) Type I (juvenile type) diabetes mellitus without mention of complication, not stated as uncontrolled Insulin pump in place Insulin pump status Recurrent falls Personal history of fall Tibia/fibula fracture, left, closed, initial encounter Dyslipidemia Other and unspecified hyperlipidemia Essential hypertension Unspecified essential hypertension Fungal meningitis Other and unspecified mycoses Pressure injury of left heel, stage 1 Deep tissue injury Pressure injury of coccygeal region, stage 2 (HCC) Preop exam for internal medicine Other specified pre-operative examination Pressure injury of deep tissue of left heel Alteration in self-care ability Debility, unspecified Impaired mobility Other ill-defined conditions Risk for falls Personal history of fall S/P exploratory laparotomy Other postprocedural status Pressure injury of deep tissue of left foot Long-term insulin use (HCC) Encounter for long-term (current) use of insulin Other hydrocephalus (HCC) [facility] Diagnosis Pre-op evaluation- Primary Preoperative examination, unspecified Neoplasm of bladder Neoplasm of unspecified nature of bladder Asthma, unspecified asthma severity, unspecified whether complicated, unspecified whether persistent Hypertension, unspecified type Palpitations Class 1 obesity with body mass index (BMI) of 31.0 to 31.9 in adult, unspecified obesity type, unspecified whether serious comorbidity present Pre-op evaluation- Primary Preoperative examination, unspecified Malignant neoplasm of urinary bladder, unspecified site (HCC) Class 1 obesity with body mass index (BMI) of 32.0 to 32.9 in adult, unspecified obesity type, unspecified whether serious comorbidity present Type 1 diabetes mellitus with other specified complication (HCC) Asthma, unspecified asthma severity, unspecified whether complicated, unspecified whether persistent Hypertension, unspecified type Palpitations Neoplasm of bladder Neoplasm of unspecified nature of bladder Hydrocephalus (HCC)- Primary Obstructive hydrocephalus 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 Type 1 diabetes mellitus with hyperglycemia (HCC) Type I (juvenile type) diabetes mellitus without mention of complication, not stated as uncontrolled Insulin pump in place Insulin pump status Recurrent falls Personal history of fall Tibia/fibula fracture, left, closed, initial encounter Dyslipidemia Other and unspecified hyperlipidemia Essential hypertension Unspecified essential hypertension Fungal meningitis Other and unspecified mycoses Pressure injury of left heel, stage 1 Deep tissue injury Pressure injury of coccygeal region, stage 2 (HCC) Preop exam for internal medicine Other specified pre-operative examination Pressure injury of deep tissue of left heel Alteration in self-care ability Debility, unspecified Impaired mobility Other ill-defined conditions Risk for falls Personal history of fall S/P exploratory laparotomy Other postprocedural status Pressure injury of deep tissue of left foot Long-term insulin use (HCC) Encounter for long-term (current) use of insulin 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 Spasm of muscle Myelitis ([facility]) Unspecified cause of encephalitis, myelitis, and encephalomyelitis Impaired mobility and activities of daily living Other ill-defined conditions [facility] Diagnosis Pre-op evaluation- Primary Preoperative examination, unspecified Neoplasm of bladder Neoplasm of unspecified nature of bladder Asthma, unspecified asthma severity, unspecified whether complicated, unspecified whether persistent Hypertension, unspecified type Palpitations Class 1 obesity with body mass index (BMI) of 31.0 to 31.9 in adult, unspecified obesity type, unspecified whether serious comorbidity present Pre-op evaluation- Primary Preoperative examination, unspecified Malignant neoplasm of urinary bladder, unspecified site ([facility]) Class 1 obesity with body mass index (BMI) of 32.0 to 32.9 in adult, unspecified obesity type, unspecified whether serious comorbidity present Type 1 diabetes mellitus with other specified complication (HCC) Asthma, unspecified asthma severity, unspecified whether complicated, unspecified whether persistent Hypertension, unspecified type Palpitations Neoplasm of bladder Neoplasm of unspecified nature of bladder Hydrocephalus ([facility])- Primary Obstructive hydrocephalus 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 Type 1 diabetes mellitus with hyperglycemia ([facility]) Type I (juvenile type) diabetes mellitus without mention of complication, not stated as uncontrolled Insulin pump in place Insulin pump status Recurrent falls Personal history of fall Tibia/fibula fracture, left, closed, initial encounter Dyslipidemia Other and unspecified hyperlipidemia Essential hypertension Unspecified essential hypertension Fungal meningitis Other and unspecified mycoses Pressure injury of left heel, stage 1 Deep tissue injury Pressure injury of coccygeal region, stage 2 (HCC) Preop exam for internal medicine Other specified pre-operative examination Pressure injury of deep tissue of left heel Alteration in self-care ability Debility, unspecified Impaired mobility Other ill-defined conditions Risk for falls Personal history of fall S/P exploratory laparotomy Other postprocedural status Pressure injury of deep tissue of left foot Long-term insulin use (HCC) Encounter for long-term (current) use of insulin Fungal meningitis- Primary Other and unspecified mycoses Invasive fungal infection 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 Type 1 diabetes mellitus with unspecified complications (HCC) alf (current) use of antibiotics Muscle spasm of left lower extremity Therapeutic drug monitoring Encounter for therapeutic drug monitoring [facility] Diagnosis Pre-op evaluation- Primary Preoperative examination, unspecified Neoplasm of bladder Neoplasm of unspecified nature of bladder Asthma, unspecified asthma severity, unspecified whether complicated, unspecified whether persistent Hypertension, unspecified type Palpitations Class 1 obesity with body mass index (BMI) of 31.0 to 31.9 in adult, unspecified obesity type, unspecified whether serious comorbidity present Pre-op evaluation- Primary Preoperative examination, unspecified Malignant neoplasm of urinary bladder, unspecified site ([facility]) Class 1 obesity with body mass index (BMI) of 32.0 to 32.9 in adult, unspecified obesity type, unspecified whether serious comorbidity present Type 1 diabetes mellitus with other specified complication (HCC) Asthma, unspecified asthma severity, unspecified whether complicated, unspecified whether persistent Hypertension, unspecified type Palpitations Neoplasm of bladder Neoplasm of unspecified nature of bladder Hydrocephalus (HCC)- Primary Obstructive hydrocephalus 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 Type 1 diabetes mellitus with hyperglycemia (HCC) Type I (juvenile type) diabetes mellitus without mention of complication, not stated as uncontrolled Insulin pump in place Insulin pump status Recurrent falls Personal history of fall Tibia/fibula fracture, left, closed, initial encounter Dyslipidemia Other and unspecified hyperlipidemia Essential hypertension Unspecified essential hypertension Fungal meningitis Other and unspecified mycoses Pressure injury of left heel, stage 1 Deep tissue injury Pressure injury of coccygeal region, stage 2 (HCC) Preop exam for internal medicine Other specified pre-operative examination Pressure injury of deep tissue of left heel Alteration in self-care ability Debility, unspecified Impaired mobility Other ill-defined conditions Risk for falls Personal history of fall S/P exploratory laparotomy Other postprocedural status Pressure injury of deep tissue of left foot Long-term insulin use (HCC) Encounter for long-term (current) use of insulin 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 Myelitis (HCC) Unspecified cause of encephalitis, myelitis, and encephalomyelitis Impaired mobility and activities of daily living Other ill-defined conditions [facility] Diagnosis Pre-op evaluation- Primary Preoperative examination, unspecified Neoplasm of bladder Neoplasm of unspecified nature of bladder Asthma, unspecified asthma severity, unspecified whether complicated, unspecified whether persistent Hypertension, unspecified type Palpitations Class 1 obesity with body mass index (BMI) of 31.0 to 31.9 in adult, unspecified obesity type, unspecified whether serious comorbidity present Pre-op evaluation- Primary Preoperative examination, unspecified Malignant neoplasm of urinary bladder, unspecified site (HCC) Class 1 obesity with body mass index (BMI) of 32.0 to 32.9 in adult, unspecified obesity type, unspecified whether serious comorbidity present Type 1 diabetes mellitus with other specified complication (HCC) Asthma, unspecified asthma severity, unspecified whether complicated, unspecified whether persistent Hypertension, unspecified type Palpitations Neoplasm of bladder Neoplasm of unspecified nature of bladder Hydrocephalus (HCC)- Primary Obstructive hydrocephalus 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 Type 1 diabetes mellitus with hyperglycemia (HCC) Type I (juvenile type) diabetes mellitus without mention of complication, not stated as uncontrolled Insulin pump in place Insulin pump status Recurrent falls Personal history of fall Tibia/fibula fracture, left, closed, initial encounter Dyslipidemia Other and unspecified hyperlipidemia Essential hypertension Unspecified essential hypertension Fungal meningitis Other and unspecified mycoses Pressure injury of left heel, stage 1 Deep tissue injury Pressure injury of coccygeal region, stage 2 (HCC) Preop exam for internal medicine Other specified pre-operative examination Pressure injury of deep tissue of left heel Alteration in self-care ability Debility, unspecified Impaired mobility Other ill-defined conditions Risk for falls Personal history of fall S/P exploratory laparotomy Other postprocedural status Pressure injury of deep tissue of left foot Long-term insulin use (HCC) Encounter for long-term (current) use of insulin Other hydrocephalus (HCC)- Primary [facility] Diagnosis Pre-op evaluation- Primary Preoperative examination, unspecified Neoplasm of bladder Neoplasm of unspecified nature of bladder Asthma, unspecified asthma severity, unspecified whether complicated, unspecified whether persistent Hypertension, unspecified type Palpitations Class 1 obesity with body mass index (BMI) of 31.0 to 31.9 in adult, unspecified obesity type, unspecified whether serious comorbidity present Pre-op evaluation- Primary Preoperative examination, unspecified Malignant neoplasm of urinary bladder, unspecified site (HCC) Class 1 obesity with body mass index (BMI) of 32.0 to 32.9 in adult, unspecified obesity type, unspecified whether serious comorbidity present Type 1 diabetes mellitus with other specified complication (HCC) Asthma, unspecified asthma severity, unspecified whether complicated, unspecified whether persistent Hypertension, unspecified type Palpitations Neoplasm of bladder Neoplasm of unspecified nature of bladder Hydrocephalus (HCC)- Primary Obstructive hydrocephalus 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 Type 1 diabetes mellitus with hyperglycemia (HCC) Type I (juvenile type) diabetes mellitus without mention of complication, not stated as uncontrolled Insulin pump in place Insulin pump status Recurrent falls Personal history of fall Tibia/fibula fracture, left, closed, initial encounter Dyslipidemia Other and unspecified hyperlipidemia Essential hypertension Unspecified essential hypertension Fungal meningitis Other and unspecified mycoses Pressure injury of left heel, stage 1 Deep tissue injury Pressure injury of coccygeal region, stage 2 (HCC) Preop exam for internal medicine Other specified pre-operative examination Pressure injury of deep tissue of left heel Alteration in self-care ability Debility, unspecified Impaired mobility Other ill-defined conditions Risk for falls Personal history of fall S/P exploratory laparotomy Other postprocedural status Pressure injury of deep tissue of left foot Long-term insulin use (HCC) Encounter for long-term (current) use of insulin Other hydrocephalus (HCC) [facility] Pre-op evaluation- Primary Preoperative examination, unspecified Neoplasm of bladder Neoplasm of unspecified nature of bladder Asthma, unspecified asthma severity, unspecified whether complicated, unspecified whether persistent (HCC) Hypertension, unspecified type Palpitations Class 1 obesity with body mass index (BMI) of 31.0 to 31.9 in adult, unspecified obesity type, unspecified whether serious comorbidity present Pre-op evaluation- Primary Preoperative examination, unspecified Malignant neoplasm of urinary bladder, unspecified site (HCC) Class 1 obesity with body mass index (BMI) of 32.0 to 32.9 in adult, unspecified obesity type, unspecified whether serious comorbidity present Type 1 diabetes mellitus with other specified complication (HCC) Asthma, unspecified asthma severity, unspecified whether complicated, unspecified whether persistent (HCC) Hypertension, unspecified type Palpitations Neoplasm of bladder Neoplasm of unspecified nature of bladder Hydrocephalus (HCC)- Primary Obstructive hydrocephalus 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 Type 1 diabetes mellitus with hyperglycemia (HCC) Type I (juvenile type) diabetes mellitus without mention of complication, not stated as uncontrolled Insulin pump in place Insulin pump status Recurrent falls Personal history of fall Tibia/fibula fracture, left, closed, initial encounter Dyslipidemia Other and unspecified hyperlipidemia Essential hypertension Unspecified essential hypertension Fungal meningitis (HCC) Other and unspecified mycoses Pressure injury of left heel, stage 1 Deep tissue injury Pressure injury of coccygeal region, stage 2 (HCC) Preop exam for internal medicine Other specified pre-operative examination Pressure injury of deep tissue of left heel Alteration in self-care ability Debility, unspecified Impaired mobility Other ill-defined conditions Risk for falls Personal history of fall S/P exploratory laparotomy Other postprocedural status Pressure injury of deep tissue of left foot Long-term insulin use (HCC) Encounter for long-term (current) use of insulin Other hydrocephalus (HCC)- [facility]- Primary Preoperative examination, unspecified Neoplasm of bladder Neoplasm of unspecified nature of bladder Asthma, unspecified asthma severity, unspecified whether complicated, unspecified whether persistent (HCC) Hypertension, unspecified type Palpitations Class 1 obesity with body mass index (BMI) of 31.0 to 31.9 in adult, unspecified obesity type, unspecified whether serious comorbidity present Pre-op evaluation- Primary Preoperative examination, unspecified Malignant neoplasm of urinary bladder, unspecified site (HCC) Class 1 obesity with body mass index (BMI) of 32.0 to 32.9 in adult, unspecified obesity type, unspecified whether serious comorbidity present Type 1 diabetes mellitus with other specified complication (HCC) Asthma, unspecified asthma severity, unspecified whether complicated, unspecified whether persistent (HCC) Hypertension, unspecified type Palpitations Neoplasm of bladder Neoplasm of unspecified nature of bladder Hydrocephalus (HCC)- Primary Obstructive hydrocephalus 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 Type 1 diabetes mellitus with hyperglycemia (HCC) Type I (juvenile type) diabetes mellitus without mention of complication, not stated as uncontrolled Insulin pump in place Insulin pump status Recurrent falls Personal history of fall Tibia/fibula fracture, left, closed, initial encounter Dyslipidemia Other and unspecified hyperlipidemia Essential hypertension Unspecified essential hypertension Fungal meningitis (HCC) Other and unspecified mycoses Pressure injury of left heel, stage 1 Deep tissue injury Pressure injury of coccygeal region, stage 2 (HCC) Preop exam for internal medicine Other specified pre-operative examination Pressure injury of deep tissue of left heel Alteration in self-care ability Debility, unspecified Impaired mobility Other ill-defined conditions Risk for falls Personal history of fall S/P exploratory laparotomy Other postprocedural status Pressure injury of deep tissue of left foot Long-term insulin use (HCC) Encounter for long-term (current) use of insulin 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 Myelitis (HCC) Unspecified cause of encephalitis, myelitis, and encephalomyelitis Impaired mobility and activities of daily living Other ill-defined conditions [facility] Pre-op evaluation- Primary Preoperative examination, unspecified Neoplasm of bladder Neoplasm of unspecified nature of bladder Asthma, unspecified asthma severity, unspecified whether complicated, unspecified whether persistent (HCC) Hypertension, unspecified type Palpitations Class 1 obesity with body mass index (BMI) of 31.0 to 31.9 in adult, unspecified obesity type, unspecified whether serious comorbidity present Pre-op evaluation- Primary Preoperative examination, unspecified Malignant neoplasm of urinary bladder, unspecified site (HCC) Class 1 obesity with body mass index (BMI) of 32.0 to 32.9 in adult, unspecified obesity type, unspecified whether serious comorbidity present Type 1 diabetes mellitus with other specified complication (HCC) Asthma, unspecified asthma severity, unspecified whether complicated, unspecified whether persistent (HCC) Hypertension, unspecified type Palpitations Neoplasm of bladder Neoplasm of unspecified nature of bladder Hydrocephalus (HCC)- Primary Obstructive hydrocephalus 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 Type 1 diabetes mellitus with hyperglycemia (HCC) Type I (juvenile type) diabetes mellitus without mention of complication, not stated as uncontrolled Insulin pump in place Insulin pump status Recurrent falls Personal history of fall Tibia/fibula fracture, left, closed, initial encounter Dyslipidemia Other and unspecified hyperlipidemia Essential hypertension Unspecified essential hypertension Fungal meningitis (HCC) Other and unspecified mycoses Pressure injury of left heel, stage 1 Deep tissue injury Pressure injury of coccygeal region, stage 2 (HCC) Preop exam for internal medicine Other specified pre-operative examination Pressure injury of deep tissue of left heel Alteration in self-care ability Debility, unspecified Impaired mobility Other ill-defined conditions Risk for falls Personal history of fall S/P exploratory laparotomy Other postprocedural status Pressure injury of deep tissue of left foot Long-term insulin use (HCC) Encounter for long-term (current) use of insulin Other hydrocephalus (HCC) [facility] Diagnosis Pre-op evaluation- Primary Preoperative examination, unspecified Neoplasm of bladder Neoplasm of unspecified nature of bladder Asthma, unspecified asthma severity, unspecified whether complicated, unspecified whether persistent (HCC) Hypertension, unspecified type Palpitations Class 1 obesity with body mass index (BMI) of 31.0 to 31.9 in adult, unspecified obesity type, unspecified whether serious comorbidity present Pre-op evaluation- Primary Preoperative examination, unspecified Malignant neoplasm of urinary bladder, unspecified site (HCC) Class 1 obesity with body mass index (BMI) of 32.0 to 32.9 in adult, unspecified obesity type, unspecified whether serious comorbidity present Type 1 diabetes mellitus with other specified complication (HCC) Asthma, unspecified asthma severity, unspecified whether complicated, unspecified whether persistent (HCC) Hypertension, unspecified type Palpitations Neoplasm of bladder Neoplasm of unspecified nature of bladder Hydrocephalus (HCC)- Primary Obstructive hydrocephalus 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 Type 1 diabetes mellitus with hyperglycemia (HCC) Type I (juvenile type) diabetes mellitus without mention of complication, not stated as uncontrolled Insulin pump in place Insulin pump status Recurrent falls Personal history of fall Tibia/fibula fracture, left, closed, initial encounter Dyslipidemia Other and unspecified hyperlipidemia Essential hypertension Unspecified essential hypertension Fungal meningitis (HCC) Other and unspecified mycoses Pressure injury of left heel, stage 1 Deep tissue injury Pressure injury of coccygeal region, stage 2 (HCC) Preop exam for internal medicine Other specified pre-operative examination Pressure injury of deep tissue of left heel Alteration in self-care ability Debility, unspecified Impaired mobility Other ill-defined conditions Risk for falls Personal history of fall S/P exploratory laparotomy Other postprocedural status Pressure injury of deep tissue of left foot Long-term insulin use (HCC) Encounter for long-term (current) use of insulin Other hydrocephalus (HCC)- Primary [facility] Diagnosis Pre-op evaluation- Primary Preoperative examination, unspecified Neoplasm of bladder Neoplasm of unspecified nature of bladder Asthma, unspecified asthma severity, unspecified whether complicated, unspecified whether persistent (HCC) Hypertension, unspecified type Palpitations Class 1 obesity with body mass index (BMI) of 31.0 to 31.9 in adult, unspecified obesity type, unspecified whether serious comorbidity present Pre-op evaluation- Primary Preoperative examination, unspecified Malignant neoplasm of urinary bladder, unspecified site (HCC) Class 1 obesity with body mass index (BMI) of 32.0 to 32.9 in adult, unspecified obesity type, unspecified whether serious comorbidity present Type 1 diabetes mellitus with other specified complication (HCC) Asthma, unspecified asthma severity, unspecified whether complicated, unspecified whether persistent (HCC) Hypertension, unspecified type Palpitations Neoplasm of bladder Neoplasm of unspecified nature of bladder 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 Type 1 diabetes mellitus with hyperglycemia (HCC) Type I (juvenile type) diabetes mellitus without mention of complication, not stated as uncontrolled Recurrent falls Personal history of fall Tibia/fibula fracture, left, closed, initial encounter Dyslipidemia Other and unspecified hyperlipidemia Pressure injury of left heel, stage 1 Deep tissue injury Pressure injury of coccygeal region, stage 2 (HCC) Preop exam for internal medicine Other specified pre-operative examination Pressure injury of deep tissue of left heel Alteration in self-care ability Debility, unspecified Impaired mobility Other ill-defined conditions Risk for falls Personal history of fall S/P exploratory laparotomy Other postprocedural status Pressure injury of deep tissue of left foot Long-term insulin use ([facility]) Encounter for long-term (current) use of insulin Tibia/fibula fracture, left, closed, initial encounter- Primary [facility] Diagnosis Pre-op evaluation- Primary Preoperative examination, unspecified Neoplasm of bladder Neoplasm of unspecified nature of bladder Asthma, unspecified asthma severity, unspecified whether complicated, unspecified whether persistent (HCC) Hypertension, unspecified type Palpitations Class 1 obesity with body mass index (BMI) of 31.0 to 31.9 in adult, unspecified obesity type, unspecified whether serious comorbidity present Pre-op evaluation- Primary Preoperative examination, unspecified Malignant neoplasm of urinary bladder, unspecified site (HCC) Class 1 obesity with body mass index (BMI) of 32.0 to 32.9 in adult, unspecified obesity type, unspecified whether serious comorbidity present Type 1 diabetes mellitus with other specified complication (HCC) Asthma, unspecified asthma severity, unspecified whether complicated, unspecified whether persistent (HCC) Hypertension, unspecified type Palpitations Neoplasm of bladder Neoplasm of unspecified nature of bladder 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 Type 1 diabetes mellitus with hyperglycemia (HCC) Type I (juvenile type) diabetes mellitus without mention of complication, not stated as uncontrolled Recurrent falls Personal history of fall Tibia/fibula fracture, left, closed, initial encounter Dyslipidemia Other and unspecified hyperlipidemia Pressure injury of left heel, stage 1 Deep tissue injury Pressure injury of coccygeal region, stage 2 (HCC) Preop exam for internal medicine Other specified pre-operative examination Pressure injury of deep tissue of left heel Alteration in self-care ability Debility, unspecified Impaired mobility Other ill-defined conditions Risk for falls Personal history of fall S/P exploratory laparotomy Other postprocedural status Pressure injury of deep tissue of left foot Long-term insulin use ([facility]) Encounter for long-term (current) use of insulin Closed fracture of distal end of left femur, unspecified fracture morphology, initial encounter ([facility])- [facility] Diagnosis Pre-op evaluation- Primary Preoperative examination, unspecified Neoplasm of bladder Neoplasm of unspecified nature of bladder Asthma, unspecified asthma severity, unspecified whether complicated, unspecified whether persistent (HCC) Hypertension, unspecified type Palpitations Class 1 obesity with body mass index (BMI) of 31.0 to 31.9 in adult, unspecified obesity type, unspecified whether serious comorbidity present Pre-op evaluation- Primary Preoperative examination, unspecified Malignant neoplasm of urinary bladder, unspecified site (HCC) Class 1 obesity with body mass index (BMI) of 32.0 to 32.9 in adult, unspecified obesity type, unspecified whether serious comorbidity present Type 1 diabetes mellitus with other specified complication (HCC) Asthma, unspecified asthma severity, unspecified whether complicated, unspecified whether persistent (HCC) Hypertension, unspecified type Palpitations Neoplasm of bladder Neoplasm of unspecified nature of bladder 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 Type 1 diabetes mellitus with hyperglycemia (HCC) Type I (juvenile type) diabetes mellitus without mention of complication, not stated as uncontrolled Recurrent falls Personal history of fall Tibia/fibula fracture, left, closed, initial encounter Dyslipidemia Other and unspecified hyperlipidemia Pressure injury of left heel, stage 1 Deep tissue injury Pressure injury of coccygeal region, stage 2 (HCC) Preop exam for internal medicine Other specified pre-operative examination Pressure injury of deep tissue of left heel Alteration in self-care ability Debility, unspecified Impaired mobility Other ill-defined conditions Risk for falls Personal history of fall S/P exploratory laparotomy Other postprocedural status Pressure injury of deep tissue of left foot Long-term insulin use (HCC) Encounter for long-term (current) use of insulin Tibia/fibula fracture, left, closed, initial encounter [facility] Diagnosis Pre-op evaluation- Primary Preoperative examination, unspecified Neoplasm of bladder Neoplasm of unspecified nature of bladder Asthma, unspecified asthma severity, unspecified whether complicated, unspecified whether persistent (HCC) Hypertension, unspecified type Palpitations Class 1 obesity with body mass index (BMI) of 31.0 to 31.9 in adult, unspecified obesity type, unspecified whether serious comorbidity present Pre-op evaluation- Primary Preoperative examination, unspecified Malignant neoplasm of urinary bladder, unspecified site (HCC) Class 1 obesity with body mass index (BMI) of 32.0 to 32.9 in adult, unspecified obesity type, unspecified whether serious comorbidity present Type 1 diabetes mellitus with other specified complication (HCC) Asthma, unspecified asthma severity, unspecified whether complicated, unspecified whether persistent (HCC) Hypertension, unspecified type Palpitations Neoplasm of bladder Neoplasm of unspecified nature of bladder 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 Type 1 diabetes mellitus with hyperglycemia (HCC) Type I (juvenile type) diabetes mellitus without mention of complication, not stated as uncontrolled Recurrent falls Personal history of fall Tibia/fibula fracture, left, closed, initial encounter Dyslipidemia Other and unspecified hyperlipidemia Pressure injury of left heel, stage 1 Deep tissue injury Pressure injury of coccygeal region, stage 2 (HCC) Preop exam for internal medicine Other specified pre-operative examination Pressure injury of deep tissue of left heel Alteration in self-care ability Debility, unspecified Impaired mobility Other ill-defined conditions Risk for falls Personal history of fall S/P exploratory laparotomy Other postprocedural status Pressure injury of deep tissue of left foot Long-term insulin use (HCC) Encounter for long-term (current) use of insulin Malignant neoplasm of urinary bladder, unspecified site (HCC)- [facility] Severe [facility]- Primary [facility]* Diagnosis Pre-op evaluation- Primary Preoperative examination, unspecified Neoplasm of bladder Neoplasm of unspecified nature of bladder Asthma, unspecified asthma severity, unspecified whether complicated, unspecified whether persistent (HCC) Hypertension, unspecified type Palpitations Class 1 obesity with body mass index (BMI) of 31.0 to 31.9 in adult, unspecified obesity type, unspecified whether serious comorbidity present Pre-op evaluation- Primary Preoperative examination, unspecified Malignant neoplasm of urinary bladder, unspecified site (HCC) Class 1 obesity with body mass index (BMI) of 32.0 to 32.9 in adult, unspecified obesity type, unspecified whether serious comorbidity present Type 1 diabetes mellitus with other specified complication (HCC) Asthma, unspecified asthma severity, unspecified whether complicated, unspecified whether persistent (HCC) Hypertension, unspecified type Palpitations Neoplasm of bladder Neoplasm of unspecified nature of bladder 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 Type 1 diabetes mellitus with hyperglycemia (HCC) Type I (juvenile type) diabetes mellitus without mention of complication, not stated as uncontrolled Recurrent falls Personal history of fall Tibia/fibula fracture, left, closed, initial encounter Dyslipidemia Other and unspecified hyperlipidemia Pressure injury of left heel, stage 1 Deep tissue injury Pressure injury of coccygeal region, stage 2 (HCC) Preop exam for internal medicine Other specified pre-operative examination Pressure injury of deep tissue of left heel Alteration in self-care ability Debility, unspecified Impaired mobility Other ill-defined conditions Risk for falls Personal history of fall S/P exploratory laparotomy Other postprocedural status Pressure injury of deep tissue of left foot Long-term insulin use ([facility]) Encounter for long-term (current) use of insulin History of bladder cancer Personal history of malignant neoplasm of bladder [facility] Diagnosis Pre-op evaluation- Primary Preoperative examination, unspecified Neoplasm of bladder Neoplasm of unspecified nature of bladder Asthma, unspecified asthma severity, unspecified whether complicated, unspecified whether persistent (HCC) Hypertension, unspecified type Palpitations Class 1 obesity with body mass index (BMI) of 31.0 to 31.9 in adult, unspecified obesity type, unspecified whether serious comorbidity present Pre-op evaluation- Primary Preoperative examination, unspecified Malignant neoplasm of urinary bladder, unspecified site (HCC) Class 1 obesity with body mass index (BMI) of 32.0 to 32.9 in adult, unspecified obesity type, unspecified whether serious comorbidity present Type 1 diabetes mellitus with other specified complication (HCC) Asthma, unspecified asthma severity, unspecified whether complicated, unspecified whether persistent (HCC) Hypertension, unspecified type Palpitations Neoplasm of bladder Neoplasm of unspecified nature of bladder 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 Type 1 diabetes mellitus with hyperglycemia (HCC) Type I (juvenile type) diabetes mellitus without mention of complication, not stated as uncontrolled Recurrent falls Personal history of fall Tibia/fibula fracture, left, closed, initial encounter Dyslipidemia Other and unspecified hyperlipidemia Pressure injury of left heel, stage 1 Deep tissue injury Pressure injury of coccygeal region, stage 2 (HCC) Preop exam for internal medicine Other specified pre-operative examination Pressure injury of deep tissue of left heel Alteration in self-care ability Debility, unspecified Impaired mobility Other ill-defined conditions Risk for falls Personal history of fall S/P exploratory laparotomy Other postprocedural status Pressure injury of deep tissue of left foot Long-term insulin use (HCC) Encounter for long-term (current) use of insulin Cervical stenosis of spinal canal- Primary Spinal stenosis in cervical region Other hydrocephalus (HCC) [facility] Diagnosis Pre-op evaluation- Primary Preoperative examination, unspecified Neoplasm of bladder Neoplasm of unspecified nature of bladder Asthma, unspecified asthma severity, unspecified whether complicated, unspecified whether persistent (HCC) Hypertension, unspecified type Palpitations Class 1 obesity with body mass index (BMI) of 31.0 to 31.9 in adult, unspecified obesity type, unspecified whether serious comorbidity present Pre-op evaluation- Primary Preoperative examination, unspecified Malignant neoplasm of urinary bladder, unspecified site (HCC) Class 1 obesity with body mass index (BMI) of 32.0 to 32.9 in adult, unspecified obesity type, unspecified whether serious comorbidity present Type 1 diabetes mellitus with other specified complication (HCC) Asthma, unspecified asthma severity, unspecified whether complicated, unspecified whether persistent (HCC) Hypertension, unspecified type Palpitations Neoplasm of bladder Neoplasm of unspecified nature of bladder 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 Type 1 diabetes mellitus with hyperglycemia (HCC) Type I (juvenile type) diabetes mellitus without mention of complication, not stated as uncontrolled Recurrent falls Personal history of fall Tibia/fibula fracture, left, closed, initial encounter Dyslipidemia Other and unspecified hyperlipidemia Pressure injury of left heel, stage 1 Deep tissue injury Pressure injury of coccygeal region, stage 2 (HCC) Preop exam for internal medicine Other specified pre-operative examination Pressure injury of deep tissue of left heel Alteration in self-care ability Debility, unspecified Impaired mobility Other ill-defined conditions Risk for falls Personal history of fall S/P exploratory laparotomy Other postprocedural status Pressure injury of deep tissue of left foot Long-term insulin use (HCC) Encounter for long-term (current) use of insulin History of bladder cancer- Primary Personal history of malignant neoplasm of bladder Hydronephrosis, unspecified hydronephrosis type Pulmonary nodule Solitary pulmonary nodule documented in this encounter [facility] note* Diagnosis Pre-op evaluation- Primary Preoperative examination, unspecified Neoplasm of bladder Neoplasm of unspecified nature of bladder Asthma, unspecified asthma severity, unspecified whether complicated, unspecified whether persistent (HCC) Hypertension, unspecified type Palpitations Class 1 obesity with body mass index (BMI) of 31.0 to 31.9 in adult, unspecified obesity type, unspecified whether serious comorbidity present Pre-op evaluation- Primary Preoperative examination, unspecified Malignant neoplasm of urinary bladder, unspecified site (HCC) Class 1 obesity with body mass index (BMI) of 32.0 to 32.9 in adult, unspecified obesity type, unspecified whether serious comorbidity present Type 1 diabetes mellitus with other specified complication (HCC) Asthma, unspecified asthma severity, unspecified whether complicated, unspecified whether persistent (HCC) Hypertension, unspecified type Palpitations Neoplasm of bladder Neoplasm of unspecified nature of bladder 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 Type 1 diabetes mellitus with hyperglycemia (HCC) Type I (juvenile type) diabetes mellitus without mention of complication, not stated as uncontrolled Recurrent falls Personal history of fall Tibia/fibula fracture, left, closed, initial encounter Dyslipidemia Other and unspecified hyperlipidemia Pressure injury of left heel, stage 1 Deep tissue injury Pressure injury of coccygeal region, stage 2 (HCC) Preop exam for internal medicine Other specified pre-operative examination Pressure injury of deep tissue of left heel Alteration in self-care ability Debility, unspecified Impaired mobility Other ill-defined conditions Risk for falls Personal history of fall S/P exploratory laparotomy Other postprocedural status Pressure injury of deep tissue of left foot Long-term insulin use (HCC) Encounter for long-term (current) use of insulin Cervical stenosis of spinal canal- Primary Spinal stenosis in cervical region Degeneration of cervical intervertebral disc 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 documented in this encounter [facility] note* Diagnosis Pre-op evaluation- Primary Preoperative examination, unspecified Neoplasm of bladder Neoplasm of unspecified nature of bladder Asthma, unspecified asthma severity, unspecified whether complicated, unspecified whether persistent (HCC) Hypertension, unspecified type Palpitations Class 1 obesity with body mass index (BMI) of 31.0 to 31.9 in adult, unspecified obesity type, unspecified whether serious comorbidity present Pre-op evaluation- Primary Preoperative examination, unspecified Malignant neoplasm of urinary bladder, unspecified site (HCC) Class 1 obesity with body mass index (BMI) of 32.0 to 32.9 in adult, unspecified obesity type, unspecified whether serious comorbidity present Type 1 diabetes mellitus with other specified complication (HCC) Asthma, unspecified asthma severity, unspecified whether complicated, unspecified whether persistent (HCC) Hypertension, unspecified type Palpitations Neoplasm of bladder Neoplasm of unspecified nature of bladder 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 Type 1 diabetes mellitus with hyperglycemia (HCC) Type I (juvenile type) diabetes mellitus without mention of complication, not stated as uncontrolled Recurrent falls Personal history of fall Tibia/fibula fracture, left, closed, initial encounter Dyslipidemia Other and unspecified hyperlipidemia Pressure injury of left heel, stage 1 Deep tissue injury Pressure injury of coccygeal region, stage 2 (HCC) Preop exam for internal medicine Other specified pre-operative examination Pressure injury of deep tissue of left heel Alteration in self-care ability Debility, unspecified Impaired mobility Other ill-defined conditions Risk for falls Personal history of fall S/P exploratory laparotomy Other postprocedural status Pressure injury of deep tissue of left foot Long-term insulin use (HCC) Encounter for long-term (current) use of insulin 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 Impaired mobility and activities of daily living Other ill-defined conditions Combined forms of age-related cataract of left eye- Primary Other and combined forms of senile cataract Combined forms of age-related cataract of right eye Other and combined forms of senile cataract [facility] Pre-op evaluation- Primary Preoperative examination, unspecified Neoplasm of bladder Neoplasm of unspecified nature of bladder Asthma, unspecified asthma severity, unspecified whether complicated, unspecified whether persistent (HCC) Hypertension, unspecified type Palpitations Class 1 obesity with body mass index (BMI) of 31.0 to 31.9 in adult, unspecified obesity type, unspecified whether serious comorbidity present Pre-op evaluation- Primary Preoperative examination, unspecified Malignant neoplasm of urinary bladder, unspecified site (HCC) Class 1 obesity with body mass index (BMI) of 32.0 to 32.9 in adult, unspecified obesity type, unspecified whether serious comorbidity present Type 1 diabetes mellitus with other specified complication (HCC) Asthma, unspecified asthma severity, unspecified whether complicated, unspecified whether persistent (HCC) Hypertension, unspecified type Palpitations Neoplasm of bladder Neoplasm of unspecified nature of bladder 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 Type 1 diabetes mellitus with hyperglycemia (HCC) Type I (juvenile type) diabetes mellitus without mention of complication, not stated as uncontrolled Recurrent falls Personal history of fall Tibia/fibula fracture, left, closed, initial encounter Dyslipidemia Other and unspecified hyperlipidemia Pressure injury of left heel, stage 1 Deep tissue injury Pressure injury of coccygeal region, stage 2 (HCC) Preop exam for internal medicine Other specified pre-operative examination Pressure injury of deep tissue of left heel Alteration in self-care ability Debility, unspecified Impaired mobility Other ill-defined conditions Risk for falls Personal history of fall S/P exploratory laparotomy Other postprocedural status Pressure injury of deep tissue of left foot Long-term insulin use (HCC) Encounter for long-term (current) use of insulin Cyst, arachnoid- Primary Cerebral cysts Combined forms of age-related cataract of left eye- Primary Other and combined forms of senile cataract Combined forms of age-related cataract of right eye Other and combined forms of senile cataract [facility] Diagnosis Pre-op evaluation- Primary Preoperative examination, unspecified Neoplasm of bladder Neoplasm of unspecified nature of bladder Asthma, unspecified asthma severity, unspecified whether complicated, unspecified whether persistent (HCC) Hypertension, unspecified type Palpitations Class 1 obesity with body mass index (BMI) of 31.0 to 31.9 in adult, unspecified obesity type, unspecified whether serious comorbidity present Pre-op evaluation- Primary Preoperative examination, unspecified Malignant neoplasm of urinary bladder, unspecified site (HCC) Class 1 obesity with body mass index (BMI) of 32.0 to 32.9 in adult, unspecified obesity type, unspecified whether serious comorbidity present Type 1 diabetes mellitus with other specified complication (HCC) Asthma, unspecified asthma severity, unspecified whether complicated, unspecified whether persistent (HCC) Hypertension, unspecified type Palpitations Neoplasm of bladder Neoplasm of unspecified nature of bladder 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 Type 1 diabetes mellitus with hyperglycemia (HCC) Type I (juvenile type) diabetes mellitus without mention of complication, not stated as uncontrolled Recurrent falls Personal history of fall Tibia/fibula fracture, left, closed, initial encounter Dyslipidemia Other and unspecified hyperlipidemia Pressure injury of left heel, stage 1 Deep tissue injury Pressure injury of coccygeal region, stage 2 (HCC) Preop exam for internal medicine Other specified pre-operative examination Pressure injury of deep tissue of left heel Alteration in self-care ability Debility, unspecified Impaired mobility Other ill-defined conditions Risk for falls Personal history of fall S/P exploratory laparotomy Other postprocedural status Pressure injury of deep tissue of left foot Long-term insulin use (HCC) Encounter for long-term (current) use of insulin Tibia/fibula fracture, left, closed, initial encounter Combined forms of age-related cataract of left eye- Primary Other and combined forms of senile cataract Combined forms of age-related cataract of right eye Other and combined forms of senile cataract [facility] Diagnosis Pre-op evaluation- Primary Preoperative examination, unspecified Neoplasm of bladder Neoplasm of unspecified nature of bladder Asthma, unspecified asthma severity, unspecified whether complicated, unspecified whether persistent (HCC) Hypertension, unspecified type Palpitations Class 1 obesity with body mass index (BMI) of 31.0 to 31.9 in adult, unspecified obesity type, unspecified whether serious comorbidity present Pre-op evaluation- Primary Preoperative examination, unspecified Malignant neoplasm of urinary bladder, unspecified site (HCC) Class 1 obesity with body mass index (BMI) of 32.0 to 32.9 in adult, unspecified obesity type, unspecified whether serious comorbidity present Type 1 diabetes mellitus with other specified complication (HCC) Asthma, unspecified asthma severity, unspecified whether complicated, unspecified whether persistent (HCC) Hypertension, unspecified type Palpitations Neoplasm of bladder Neoplasm of unspecified nature of bladder 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 Type 1 diabetes mellitus with hyperglycemia (HCC) Type I (juvenile type) diabetes mellitus without mention of complication, not stated as uncontrolled Recurrent falls Personal history of fall Tibia/fibula fracture, left, closed, initial encounter Dyslipidemia Other and unspecified hyperlipidemia Pressure injury of left heel, stage 1 Deep tissue injury Pressure injury of coccygeal region, stage 2 (HCC) Preop exam for internal medicine Other specified pre-operative examination Pressure injury of deep tissue of left heel Alteration in self-care ability Debility, unspecified Impaired mobility Other ill-defined conditions Risk for falls Personal history of fall S/P exploratory laparotomy Other postprocedural status Pressure injury of deep tissue of left foot Long-term insulin use (HCC) Encounter for long-term (current) use of insulin Closed fracture of distal end of left femur, unspecified fracture morphology, initial encounter (HCC)- Primary Combined forms of age-related cataract of left eye- Primary Other and combined forms of senile cataract Combined forms of age-related cataract of right eye Other and combined forms of senile cataract documented in this encounter [facility] note* Diagnosis Pre-op evaluation- Primary Preoperative examination, unspecified Neoplasm of bladder Neoplasm of unspecified nature of bladder Asthma, unspecified asthma severity, unspecified whether complicated, unspecified whether persistent (HCC) Hypertension, unspecified type Palpitations Class 1 obesity with body mass index (BMI) of 31.0 to 31.9 in adult, unspecified obesity type, unspecified whether serious comorbidity present Pre-op evaluation- Primary Preoperative examination, unspecified Malignant neoplasm of urinary bladder, unspecified site ([facility]) Class 1 obesity with body mass index (BMI) of 32.0 to 32.9 in adult, unspecified obesity type, unspecified whether serious comorbidity present Type 1 diabetes mellitus with other specified complication (HCC) Asthma, unspecified asthma severity, unspecified whether complicated, unspecified whether persistent (HCC) Hypertension, unspecified type Palpitations Neoplasm of bladder Neoplasm of unspecified nature of bladder 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 Type 1 diabetes mellitus with hyperglycemia (HCC) Type I (juvenile type) diabetes mellitus without mention of complication, not stated as uncontrolled Recurrent falls Personal history of fall Tibia/fibula fracture, left, closed, initial encounter Dyslipidemia Other and unspecified hyperlipidemia Pressure injury of left heel, stage 1 Deep tissue injury Pressure injury of coccygeal region, stage 2 (HCC) Preop exam for internal medicine Other specified pre-operative examination Pressure injury of deep tissue of left heel Alteration in self-care ability Debility, unspecified Impaired mobility Other ill-defined conditions Risk for falls Personal history of fall S/P exploratory laparotomy Other postprocedural status Pressure injury of deep tissue of left foot Long-term insulin use (HCC) Encounter for long-term (current) use of insulin Combined forms of age-related cataract of right eye- Primary Other and combined forms of senile cataract Combined forms of age-related cataract of left eye Other and combined forms of senile cataract Epiretinal membrane (ERM) of both eyes Posterior vitreous detachment of both eyes Vitreous degeneration 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, 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, right eye (HCC) Combined forms of age-related cataract of right eye Other and combined forms of senile cataract Combined forms of age-related cataract of left eye Other and combined forms of senile cataract [facility] N[facility]ative - Reported* Type Description Date Medical History DM 1 Medical HistoryOBESITYMedical HistoryASTHMASurgical HistoryORIF R ANKLE FRACTURE 2000Surgical HistoryRIGHT OOPHERECTOMY FOR CYSTHospitalization HistoryFOR SURGERIES CommercialTribe [facility] [employer] Other History general Narrative - [facility]NoGe[facility] [employer] Other History general Narrative - Reported* Type Description Date Medical History DM 1 Medical HistoryOBESITYMedical HistoryASTHMASurgical HistoryORIF R ANKLE FRACTURE 2000Surgical HistoryRIGHT OOPHERECTOMY FOR CYSTSurgical HistoryT5 intradural bx and placement of EVD3/2022Surgical HistoryVP shunt placement3.2022 Hospitalization HistoryFOR SURGERIES 4moms Other Hospital course Narrative No data available for this section [facility] No data available for this section [facility]Progress note Author Marjorie Headley [facility] September 28, 2022 1:43pmNote Date/TimeJun2022 1:43pm[place] [address] Wound Center Provider Note Signed Patient: Chikis Tobar MR#: [id number] : 1965 Acct:[id number] Age/Sex: 57 / F Copies to: DO Marjorie Goins, PROCUREMENT DIRECTOR~ HPI Date of Visit Date of Visit: Date of Service: 09/28/2022 Time of Service: 13:42 Narrative HPI: 08/08/22 Chikis is a 57 year old female presenting to [facility] wound care program for an initial visit [...] week appt, hope to be healed at thatvisit 09/28/22 healed today, protective bandage applied, aware to call with any future needs Subjective Pain Sacrum: Pain Intensity: 0 Wound/Ulcer History When did wound start?: May 2022 Mode of Arrival/ Curber: Family Assistive Device Used Today: Walker Lives with:: Multiple Family Members Appetite Description: Within Normal Limits Who helps w/ dressing change?: Family Why Do You Need Help?: Can't Reach Ulcer Smoking Status: Never smoker [facility] Medical History (Updated 09/28/22 @ 13:43 [...] pen (Lantus Solostar U-100 Insulin) 18 unit subcutHS 08/08/22 [History Confirmed 08/08/22] pantoprazole 40 mg [...] 0 CM Sq: 0.000 Surrounding Tissue Appearance: [place] Surrounding Tissue Temp: Warm Drainage Amount: None [...] By: <Electronically signed by STEVEN Headley> 09/28/22 1343 [facility] Work Phone: Progress note No data available for this section [facility] for referral (narrative)* Diagnostic Procedure Only (Routine) - Pending ReviewSpecialtyDiagnoses / Procedures Referred By ContactReferred To ContactMOLECULAR & FUNCTIONAL IMAGING Diagnoses Early satiety Nausea Procedures NM GASTRIC EMPTYING SOLID GASTRIC EMPTYING STUDY Jose Schmid APRN.STABLE HELPER [address] [place] [address] Molecular & Functional Imaging [address] [place] [address] Referral IDStatusReasonStart DateExpiration DateVisits RequestedVisits [id number] Review Auto-Generated Referral / * Outpatient Procedure (Routine) - AuthorizedSpecialtyDiagnoses / Procedures Referred By ContactReferred To [facility] Diagnoses Encounter for screening for malignant neoplasm of colon Procedures COLONOSCOPY SCREENING COLONOSCOPY FLX DX W/COLLJ SPEC WHEN PFRMD Jose Schmid APRN.CNP [phone] [place] [address] Referral IDStatusReasonStart DateExpiration DateVisits RequestedVisits [id number] Auto-Generated Referral * Outpatient Procedure (Routine) - AuthorizedSpecialtyDiagnoses / Procedures Referred By ContactReferred To [facility] Diagnoses Nausea and vomiting, unspecified vomiting type Procedures EGD DIAGNOSTIC ESOPHAGOGASTRODUODENOSCOPY TRANSORAL DIAGNOSTIC Jose Schmid APRN.CNP [address] [place] [address] [place] [address] Referral IDStatusReasonStart DateExpiration DateVisits RequestedVisits [id number] Auto-Generated Referral [facility] for referral (narrative)* Outpatient Procedure (Routine) - ClosedSpecialtyDiagnoses / ProceduresReferred By ContactReferred To [facility] Diagnoses Encounter for screening for malignant neoplasm of colon Procedures COLONOSCOPY SCREENING COLONOSCOPY FLX DX W/COLLJ SPEC WHEN PFRMD Jose Schmid APRN.STABLE HELPER [phone] [place] [id number] Referral IDStatusReasonStart DateExpiration DateVisits RequestedVisits [id number] Auto-Generated Referral * Outpatient Procedure (Routine) - ClosedSpecialtyDiagnoses / ProceduresReferred By ContactReferred To ContactHELEN [facility] [place] Diagnoses Nausea and vomiting, unspecified vomiting type Procedures EGD DIAGNOSTIC ESOPHAGOGASTRODUODENOSCOPY TRANSORAL DIAGNOSTIC Jose Schmid APRN.CNP [address] [phone] [facility] [place] [address] [place] [address] Referral IDStatusReasonStart DateExpiration DateVisits RequestedVisits [id number] Auto-Generated Referral [facility] for referral (narrative)* Diagnostic Procedure Only (Routine) - Pending ReviewSpecialtyDiagnoses / ProceduresReferred By Contact Referred To ContactXR IMAGING Diagnoses Small bowel obstruction (HCC) Procedures XR GI SMALL BOWEL FOLLOW-THRU RADIOLOGIC SMALL INTESTINE FOLLOW-THROUGH STUDY Peterson Gonsalez MD [address] [place] [address] Xr Imaging Referral IDStatusReasonStart DateExpiration DateVisits RequestedVisits [id number] Review Auto-Generated Referral * Diagnostic Procedure Only (Routine) - Pending ReviewSpecialtyDiagnoses / ProceduresReferred By ContactReferred To ContactXR IMAGING Diagnoses Small bowel obstruction (HCC) Procedures XR UPPER GI SINGLE CONTRAST RADIOLOGIC EXAM UPR GI TRC SINGLE CONTRAST STUDY Peterson Gonsalez MD [address] [place] [address] Xr Imaging Referral IDStatusReasonStart DateExpiration DateVisits RequestedVisits [id number] Review Auto-Generated Referral [facility] for referral (narrative)* Diagnostic Procedure Only (Routine) - AuthorizedSpecialtyDiagnoses / ProceduresReferred By Contact Referred To ContactXR IMAGING Diagnoses Closed nondisplaced transverse fracture of left patella, initial encounter Procedures XR KNEE LIMITED 2V AP/LAT LEFT RADIOLOGIC EXAMINATION KNEE 1/2 VIEWS Aashish Monge PA-C [address] [place] [address] Xr Imaging [place] [facility] Referral IDStatusReasonStart DateExpiration DateVisits RequestedVisits [id number] Auto-Generated Referral / [facility] for referral (narrative)* Diagnostic Procedure Only (Routine) - Pending ReviewSpecialtyDiagnoses / ProceduresReferred By Contact Referred To ContactUS IMAGING Diagnoses History of bladder cancer Procedures US KIDNEY/BLADDER US RETROPERITONEAL REAL TIME W/IMAGE COMPLETE Molly Hendrickson APRN.CNP [address] [place] [address] Us Imaging [place] [address] Referral IDStatusReasonStart DateExpiration DateVisits RequestedVisits [id number] Review Auto-Generated Referral / [facility] for referral (narrative)* Diagnostic Procedure Only (Routine) - New RequestSpecialtyDiagnoses / ProceduresReferred By Contact Referred To ContactXR IMAGING Diagnoses Tibia/fibula fracture, left, closed, initial encounter Procedures XR TIBIA FIBULA 2V AP/LAT LEFT RADIOLOGIC EXAMINATION TIBIA & FIBULA 2 VIEWS Aashish Monge PA-C [address] [place] [address] Xr Imaging [id number] Referral IDStatusReasonStart DateExpiration DateVisits RequestedVisits [id number] Request Auto-Generated Referral / [facility] for referral (narrative)* Outpatient Procedure (Routine) - New RequestSpecialtyDiagnoses / ProceduresReferred By ContactReferred To ContactNEUROLOGICAL INSTITUTE Diagnoses Spasticity Procedures EMG(NEURO/NI) NERVE CONDUCTION STUDIES 9-[place] [address] [address] [phone] [facility] [place] [address] [place] [address] Referral IDStatusSent[facility] DateExpiration DateVisits RequestedVisits [id number] Request Auto-Generated Referral [facility] for referral (narrative)No reason for referral information availableOhio State Health System Work Phone: [facility] Narrative* Outpatient Procedure (Routine) - ClosedSpecialtyDiagnoses / ProceduresReferred By ContactReferred To [facility] Diagnoses Encounter for screening for malignant neoplasm of colon Procedures COLONOSCOPY SCREENING COLONOSCOPY FLX DX W/COLLJ SPEC WHEN PFRMD Jose Schmid, PROCUREMENT DIRECTOR.STABLE HELPER [address] [place] [address] [facility] [place] [address] [place] [address] Referral IDStatusReasonStlake worth DateExpiration DateVisits RequestedVisits [id number] Auto-Generated Referral [facility] for visit Narrative* Diagnostic Procedure Only (Routine) - ClosedSpecialtyDiagnoses / ProceduresReferred By ContactReferred To Contact XR IMAGING Diagnoses Closed nondisplaced transverse fracture of left patella, initial encounter Procedures XR KNEE LIMITED 2V AP/LAT LEFT RADIOLOGIC EXAMINATION KNEE 1/2 VIEWS Aashish Monge PA-C [address] [place] [address] Xr Imaging [place] [address] Referral IDStatusReasonStlake worth DateExpiration DateVisits RequestedVisits [id number] Auto-Generated Referral / [facility] for visit Narrative* Diagnostic Procedure Only (Routine) - ClosedSpecialtyDiagnoses / ProceduresReferred By ContactReferred To Contact US IMAGING Diagnoses History of bladder cancer Procedures US KIDNEY/BLADDER US RETROPERITONEAL REAL TIME W/IMAGE COMPLETE Molly Hendrickson APRN.STABLE HELPER [address] [place] [address] Us Imaging [place] [address] Referral IDStatusReasonStlake worth DateExpiration DateVisits RequestedVisits [id number] Auto-Generated Referral / [facility] for visit Narrative* Diagnostic Procedure Only (Routine) - ClosedSpecialtyDiagnoses / ProceduresReferred By ContactReferred To Contact XR IMAGING Diagnoses Tibia/fibula fracture, left, closed, initial encounter Procedures XR TIBIA FIBULA 2V AP/LAT LEFT RADIOLOGIC EXAMINATION TIBIA & FIBULA 2 VIEWS Aashish Monge PA-C [address] [place] [address] Xr Imaging [place] [address] Referral IDStatusReasonStart DateExpiration DateVisits RequestedVisits [id number] Auto-Generated Referral / [facility] for visit Narrative* Diagnostic Procedure Only (Routine) - ClosedSpecialtyDiagnoses / ProceduresReferred By ContactReferred To Contact XR IMAGING Diagnoses Tibia/fibula fracture, left, closed, initial encounter Procedures XR TIBIA FIBULA 2V AP/LAT LEFT RADIOLOGIC EXAMINATION TIBIA & FIBULA 2 VIEWS Aashish Monge PA-C [address] [place] [address] Xr Imaging [place] [address] Referral IDStatusReasonStart DateExpiration DateVisits RequestedVisits [id number] Auto-Generated Referral / [facility] for visit Narrative* Diagnostic Procedure Only (Routine) - ClosedSpecialtyDiagnoses / ProceduresReferred By ContactReferred To Contact Radiology / RADIO MRI [facility] Diagnoses Cervicalgia MRI BRAIN WO/W IVCON MRI CERVICAL SPINE WO/W IVCON MRI LUMBAR SPINE PRE-OP LOCALIZATION W IVCON MRI THORACIC SPINE WO/W IVCON Cervicalgia [M54.2] Procedures MRI BRAIN BRAIN STEM W/O W/CONTRAST MATERIAL MRI SPINAL CANAL THORACIC W/O & W/CONTR MATRL MRI SPINAL CANAL CERVICAL W/O & W/CONTR MATRL UNLISTED MAGNETIC RESONANCE PROCED MRI WWO NEU1 B 300 aJmie Mccarty MD [address] [place] [address] Radio [facility] [address] [place] [address] Referral IDStatusReasonStlake worth DateExpiration DateVisits RequestedVisits [id number]/ [facility] for visit Narrative* Diagnostic Procedure Only (Routine) - ClosedSpecialtyDiagnoses / ProceduresReferred By ContactReferred To Contact XR IMAGING Diagnoses Tibia/fibula fracture, left, closed, initial encounter Procedures XR FEMUR GENERAL 2V AP/LAT LEFT RADIOLOGIC EXAMINATION FEMUR MINIMUM 2 [place] [address] [place] [address] Phone: tel: fax: XR IMAGING [place] [address] Referral IDStatus[facility] DateExpiration DateVisits RequestedVisits [id number] Auto-Generated Referral / [facility] for visit Narrative* Diagnostic Procedure Only (Routine) - ClosedSpecialtyDiagnoses / ProceduresReferred By ContactReferred To Contact XR IMAGING Diagnoses Tibia/fibula fracture, left, closed, initial encounter Procedures XR FEMUR GENERAL 2V AP/LAT LEFT RADIOLOGIC EXAMINATION FEMUR MINIMUM [address] [place] [address] [place] [address] Phone: tel: fax: XR IMAGING [id number] Referral IDStatusReasonStart DateExpiration DateVisits RequestedVisits [id number] Auto-Generated Referral [facility] Advance Directives No Advanced Directives Records FoundDocuments on File TypeDate RecordedPatient RepresentativeExplanationAdvance Directive(s)01/10/2022 11:16 AMDate ActivatedDate InactivatedComments06/15/2022 3:36 PM07/21/2022 4:41 PM QuestionAnswerCommentsFull Code Order Discussed With:* Patient Date ActivatedDate InactivatedComments06/11/2022 10:23 AM06/15/2022 8:59 AMQuestion AnswerCommentsFull Code Order Discussed With:* Patient TypeDate RecordedPatient RepresentativeExplanationAdvance Directives and Living WillPower of AttorneyTypeDate RecordedPatient RepresentativeExplanationAdvance Directive(s)03/22/2021 4:05 PMAdvance Directive(s)02/10/2021 2:40 PMMainTypeDate RecordedPatient RepresentativeExplanationAdvance Directive(s)03/22/2021 4:05 PM Advance Directive(s)02/10/2021 2:40 PMMain Advance Directive Response Recorded Date/ Time Advance Directives No June 28, 018 10:37am TypeDate RecordedPatient RepresentativeExplanationAdvance Directive(s)01/10/2022 11:16 AMCode StatusDate ActivatedDate InactivatedCommentsFull Code06/15/2022 3:36 PMFull Code Order Discussed With:PatientFull Code06/11/2022 10:23 AM06/15/2022 8:59 AMCode StatusDate ActivatedDate InactivatedCommentsFull Code06/15/2022 3:36 PM 07/21/2022 4:41 PMFull Code06/11/2022 10:23 AM06/15/2022 8:59 AMCode StatusDate ActivatedDate InactivatedCommentsFull Code06/15/2022 3:36 PM07/21/2022 4:41 PMCode StatusDate ActivatedDate InactivatedCommentsFull Code06/15/2022 3:36 PM07/21/2022 4:41 PMQuestionAnswerCommentsFull Code Order Discussed With:PatientCode Status Date ActivatedDate InactivatedCommentsFull Code06/11/2022 10:23 AM06/15/2022 8:59 AMQuestionAnswerCommentsFull Code Order Discussed With:PatientCode StatusDate ActivatedDate InactivatedCommentsFull Code06/15/2022 3:36 PM07/21/2022 4:41 PM QuestionAnswerCommentsFull Code Order Discussed With:PatientCode StatusDate ActivatedDate InactivatedCommentsFull Code06/11/2022 10:23 AM06/15/2022 8:59 AM QuestionAnswerCommentsFull Code Order Discussed With:PatientCode StatusDate ActivatedDate InactivatedCommentsFull Code06/25/2023 5:20 PM07/13/2023 12:31 PM QuestionAnswerCommentsDocumentation of decision process for this code status: Discussed with patient or surrogate. This is the code status chosen by the patient/surrogate.Code StatusDate ActivatedDate InactivatedCommentsFull Code 06/25/2023 5:20 PM07/13/2023 12:31 PMQuestionAnswerCommentsDocumentation of decision process for this code status:Discussed with patient or surrogate. This is the code status chosen by the patient/surrogate.Date ActivatedDate InactivatedComments06/15/2022 3:36 PM07/21/2022 4:41 PMQuestionAnswerCommentsFull Code Order Discussed With:* Patient Date ActivatedDate InactivatedComments06/11/2022 10:23 AM06/15/2022 8:59 AMQuestion AnswerCommentsFull Code Order Discussed With:* Patient Date ActivatedDate InactivatedComments10/12/2023 8:12 AMDate ActivatedDate InactivatedComments06/15/2022 3:36 PM07/21/2022 4:41 PMDate ActivatedDate InactivatedComments06/11/2022 10:23 AM06/15/2022 8:59 AMQuestionAnswerCommentsFull Code Order Discussed With:* Patient Date ActivatedDate InactivatedComments10/12/2023 8:12 AM10/20/2023 7:49 PMDate ActivatedDate InactivatedComments06/15/2022 3:36 PM07/21/2022 4:41 PMDate Activated Date InactivatedComments06/11/2022 10:23 AM06/15/2022 8:59 AMQuestionAnswerComments Full Code Order Discussed With:* Patient Date ActivatedDate InactivatedComments10/12/2023 8:12 AM10/20/2023 7:49 PMDate ActivatedDate InactivatedComments06/25/2023 5:20 PM07/13/2023 12:31 PMQuestion AnswerCommentsDocumentation of decision process for this code status:* Discussed with patient or surrogate. This is the code status chosen by the patient/surrogate. Advance Directive Response Recorded Date/ Time Advance Directives No June 28, 2 018 9:37am Code StatusDate ActivatedDate InactivatedCommentsFull Code06/25/2023 5:20 PM QuestionAnswerCommentsDocumentation of decision process for this code status: Discussed with patient or surrogate. This is the code status chosen by the patient/surrogate.Date ActivatedDate InactivatedComments08/22/2024 11:04 PMDate ActivatedDate InactivatedComments10/12/2023 8:12 AM10/20/2023 7:49 PMDate Activated Date InactivatedComments06/15/2022 3:36 PM07/21/2022 4:41 PMDate ActivatedDate InactivatedComments06/11/2022 10:23 AM06/15/2022 8:59 AMQuestionAnswerCommentsFull Code Order Discussed With:* Patient Date ActivatedDate InactivatedComments08/22/2024 11:04 PMDate ActivatedDate InactivatedComments10/12/2023 8:12 AM10/20/2023 7:49 PMDate ActivatedDate InactivatedComments06/15/2022 3:36 PM07/21/2022 4:41 PMDate ActivatedDate InactivatedComments06/11/2022 10:23 AM06/15/2022 8:59 AMQuestionAnswerCommentsFull Code Order Discussed With:* Patient Date ActivatedDate InactivatedComments08/22/2024 11:04 PM08/28/2024 8:50 PMDate ActivatedDate InactivatedComments08/22/2024 11:04 PM08/28/2024 8:50 PM Summary Purpose Family History No Family History Records Found Relationship Condition Age at Onset Recorded Date/T migue Not Specified Hypertension Unknown Relationship Condition Age at Onset Recorded Date/T migue father Unknown Heart diseaseUnknownNot SpecifiedHypertensionUnknown Relationship Condition Age at Onset Recorded Date/T migue father Unknown Heart diseaseUnknownmotherHypertensionUnknown Assessments Diagnosis Right wrist pain Pain in joint, forearm Chief Complaint f/u DM1f/u DM1f/u DM1f/u DM1f/u DM1 Medications Administered Section Medication OrderMAR ActionAction DateDoseRateSite dextrose 50% in water 25 g syringe 25 g, INTRAVENOUS, ONCE, 1 dose, On Sun09/21/21 at 1530, - NONCYTOTOXIC VESICANT - Given09/21/2021 3:15 PM EDT25 g NaCl 0.9% iv infusion INTRAVENOUS, X (ONE-STEP ONLY) CONTINUOUS PRN, Starting on Sun09/21/21 at 1515, Until Sun09/21/21 at 1515 New Bag/Syringe/Txgukf8209/21/2021 3:15 PM AWX026 mLMedication OrderMAR Action Action DateDoseRateSite cefTRIAXone 1 g intramuscular injection (ROCEPHIN) 1 g, INTRAMUSCULAR, ONCE (UP TO 30 DAYS AMB), 1 dose, On Sun01/30/22 at 0800, Please document the antimicrobial indication: Prophylaxis Given01/30/2022 9:52 AM EDT1 gButtocks, Left Reason for Referral SpecialtyDiagnoses / ProceduresReferred By ContactReferred To ContactCT IMAGING Diagnoses History of bladder cancer Abdominal pain, unspecified abdominal location Procedures CT ABD/PEL W IVCON CT ABD & PELVIS W/CONTRAST Peterson Gonsalez MD [address] [place] [address] Ct Imaging Referral IDStatusReasonStart DateExpiration DateVisits RequestedVisits [id number] Review Auto-Generated Referral [id number] / ProceduresReferred By ContactReferred To ContactCT IMAGING Diagnoses Malignant neoplasm of urinary bladder, unspecified site (HCC) Procedures CT UROGRAM WO/W IVCON CT ABD & PELVIS W/O CONTRST 1+ BODY REGNS Peterson Gonsalez MD [address] [place] [address] Ct Imaging Referral IDStatusReasonStart DateExpiration DateVisits RequestedVisits [id number] Review Auto-Generated Referral /[id number] / ProceduresReferred By ContactReferred To ContactCT IMAGING Diagnoses Malignant neoplasm of urinary bladder, unspecified site (HCC) Procedures CT CHEST W IVCON DIAGNOSTIC COMPUTED TOMOGRAPHY THORAX W/CONTRAST Peterson Gonsalez MD [address] [place] [address] Ct Imaging Referral IDStatusReasonStart DateExpiration DateVisits RequestedVisits [id number] Review Auto-Generated Referral 1Referral IDStatusReasonStart DateExpiration DateVisits RequestedVisits [id number] Review Auto-Generated Referral /[id number] / ProceduresReferred By ContactReferred To ContactREHAB AND SPORTS THERAPY INS Diagnoses Chronic low back pain without sciatica, unspecified back pain laterality Procedures CONSULT TO PHYSICAL THERAPY PHYSICAL THERAPY EVALUATION [place] [address] [place] [address] [facility] [place] [address] Referral IDStatusReasonStart DateExpiration DateVisits RequestedVisits [id number] Review Auto-Generated Referral [id number] / ProceduresReferred By ContactReferred To ContactCT IMAGING Diagnoses History of bladder cancer Procedures CT CHEST W IVCON DIAGNOSTIC COMPUTED TOMOGRAPHY THORAX W/CONTRAST Peterson Gonsalez MD [address] [place] [address] Ct Imaging Referral IDStatusReasonStart DateExpiration DateVisits RequestedVisits [id number] Review Auto-Generated Referral /[id number] / ProceduresReferred By ContactReferred To ContactCT IMAGING Diagnoses History of bladder cancer Procedures CT UROGRAM WO/W IVCON CT ABD & PELVIS W/O CONTRST 1+ BODY REGNS Peterson Gonsalez MD [address] [place] [address] Ct Imaging Referral IDStatusReasonStart DateExpiration DateVisits RequestedVisits [id number] Review Auto-Generated Referral [id number] / ProceduresReferred By ContactReferred To Contact Diagnoses History of bladder cancer Procedures CONSULT TO PALLIATIVE CARE OFFICE/OUTPATIENT [facility] MDM 60-74 MINUTES Peterson Gonsalez MD [address] [place] [address] Referral IDStatusReasonStart DateExpiration DateVisits RequestedVisits [id number] PCP Requested Referral [id number] / ProceduresReferred By ContactReferred To ContactMR IMAGING Diagnoses Cervicalgia Procedures MRI THORACIC SPINE WO/W IVCON MRI SPINAL CANAL THORACIC W/O & W/CONTR Jamie Miller [facility] [address] [facility] [facility] [place] [address] Mr Imaging Referral IDStatusReasonStart DateExpiration DateVisits RequestedVisits [id number] Review Auto-Generated Referral [id number] / ProceduresReferred By ContactReferred To ContactMR IMAGING Diagnoses Cervicalgia Procedures MRI CERVICAL SPINE WO/W IVCON MRI SPINAL CANAL CERVICAL W/O & W/CONTR Jamie Miller MD [address] [place] [address] Mr Imaging Referral IDStatusReasonStart DateExpiration DateVisits RequestedVisits [id number] Review Auto-Generated Referral /[id number] / ProceduresReferred By ContactReferred To ContactMR IMAGING Diagnoses Cervicalgia Procedures MRI BRAIN WO/W IVCON MRI BRAIN BRAIN STEM W/O W/CONTRAST MATERIAL Jamie Mccarty MD [address] [place] [address] Mr Imaging Referral IDStatusReasonStart DateExpiration DateVisits RequestedVisits [id number] Review Auto-Generated Referral [id number] / ProceduresReferred By ContactReferred To ContactCT IMAGING Diagnoses Other hydrocephalus (HCC) Procedures CT BRAIN WO IVCON CT HEAD/BRAIN W/O CONTRAST MATERIAL Con Oconnor MD [address] [place] [address] Ct Imaging Referral IDStatusReasonStart DateExpiration DateVisits RequestedVisits [id number] Review Auto-Generated Referral OON/Self Pay Override [id number] / ProceduresReferred By ContactReferred To ContactCT IMAGING Diagnoses Other hydrocephalus (HCC) Procedures CT BRAIN WO IVCON CT HEAD/BRAIN W/O CONTRAST MATERIAL Marlene Cordero PA-C [address] [place] [address] Ct Imaging Referral IDStatusReasonStart DateExpiration DateVisits RequestedVisits [id number] Review Auto-Generated Referral /[id number] IDStatusReasonStart DateExpiration DateVisits RequestedVisits [id number] Review Auto-Generated Referral /[id number] IDStatusReasonStart DateExpiration DateVisits RequestedVisits [id number] Auto-Generated Referral [id number] / ProceduresReferred By ContactReferred To ContactCT IMAGING Diagnoses Other hydrocephalus (HCC) Procedures CT BRAIN WO IVCON CT HEAD/BRAIN W/O CONTRAST MATERIAL Marlene Cordero PA-C [address] [place] [address] Ct Imaging [place] [address] Referral IDStatusReasonStart DateExpiration DateVisits RequestedVisits [id number] Review Auto-Generated Referral /[id number] / ProceduresReferred By ContactReferred To ContactCT IMAGING Diagnoses History of bladder cancer Procedures CT CHEST W IVCON DIAGNOSTIC COMPUTED TOMOGRAPHY THORAX W/CONTRAST Peterson Gonsalez MD [address] [place] [address] Ct Imaging [place] [address] Referral IDStatusReasonStart DateExpiration DateVisits RequestedVisits [id number] Review Auto-Generated Referral /[id number] / ProceduresReferred By ContactReferred To ContactCT IMAGING Diagnoses History of bladder cancer Procedures CT UROGRAM WO/W IVCON CT ABD & PELVIS W/O CONTRST 1+ BODY REGNS Peterson Gonsalez MD [address] [place] [address] Ct Imaging [place] [address] Referral IDStatusReasonStart DateExpiration DateVisits RequestedVisits [id number] Review Auto-Generated Referral /[id number] / ProceduresReferred By ContactReferred To ContactREHAB AND SPORTS THERAPY INS Diagnoses Closed nondisplaced transverse fracture of left patella, initial encounter Procedures CONSULT TO PHYSICAL THERAPY PHYSICAL THERAPY EVALUATION HIGH COMPLEX 45 MINS Aashish Monge PA-C [address] [place] [address] [facility] [place] [address] [place] [address] Referral IDStatusReasonStart DateExpiration DateVisits RequestedVisits [id number] Review Auto-Generated Referral /[id number] / ProceduresReferred By ContactReferred To ContactXR IMAGING Diagnoses Closed nondisplaced transverse fracture of left patella, initial encounter Procedures XR KNEE LIMITED 2V AP/LAT LEFT RADIOLOGIC EXAMINATION KNEE 1/2 VIEWS Aashish Monge PA-C [address] [place] [address] Xr Imaging [place] [address] Referral IDStatusReasonStlake worth DateExpiration DateVisits RequestedVisits [id number] Review Auto-Generated Referral [id number] / ProceduresReferred By ContactReferred To ContactRadiology Diagnoses 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) Procedures CT HEAD W/O CONTRAST Daniel Figueroa MD [address] [place] [address] [place] [address] [facility] CT SCAN Referral IDStatusReasonRenfrew DateExpiration DateVisits RequestedVisits [id number] [id number] / ProceduresReferred By ContactReferred To Contact Diagnoses Intraoperative ureteral injury Procedures DME SUPPLY OR ACCESSORY, NOS Arlene Chambers MD [address] [place] [address] [facility] [facility] [address] [place] [address] Referral IDStatusReasonRenfrew DateExpiration DateVisits RequestedVisits [id number] Continuity of Care [id number] / ProceduresReferred By ContactReferred To ContactRadiology Diagnoses 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) Procedures DOWNLOAD POWERSHARE IMAGES TO [facility] Neurosurgery [address] [place] [address] [facility] DIAGNOSTIC RADIOLOGY [address] [place] [address] [place] [address] Referral IDStatusReasonStart DateExpiration DateVisits RequestedVisits [id number] Review/[id number] / ProceduresReferred By ContactReferred To ContactRadiology Diagnoses 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) Procedures CT NEURO IMAGE IMPORT(LYNNETTE) DOWNLOAD POWERSHARE IMAGES TO Daniel Becerra MD [address] [facility] [place] [address] [facility] DIAGNOSTIC RADIOLOGY [address] [facility] [place] [address] Referral IDStatusReasonStart DateExpiration DateVisits RequestedVisits [id number]/13/20245/[id number] / Procedures Referred By ContactReferred To ContactNeurology Diagnoses Other hydrocephalus (HCC) Procedures CONSULT TO NEUROLOGY OFFICE/OUTPATIENT [facility] 60 MINUTES Marlene Cordero PA-C [address] [place] [address] Referral IDStatusReasonStart DateExpiration DateVisits RequestedVisits [id number] Review PCP Requested Referral /[id number] IDStatusReasonStart DateExpiration DateVisits RequestedVisits [id number] Review Auto-Generated Referral /[id number] / ProceduresReferred By ContactReferred To ContactCT IMAGING Diagnoses Communicating hydrocephalus (HCC) Procedures CT BRAIN STEREOLOCAL WO IVCON CT GUIDANCE STEREOTACTIC LOCALIZATION Marlene Cordero PA-C [address] [place] [id number] Imaging [place] [address] Referral IDStatusReasonStart DateExpiration DateVisits RequestedVisits [id number] Review Auto-Generated Referral /[id number] / ProceduresReferred By ContactReferred To Contact Diagnoses Communicating hydrocephalus (HCC) Procedures REFER TO PACC - PRE ANESTHESIA CONSULTATION CLINIC OFFICE/OUTPATIENT [facility]DM 60 MINUTES Marlene Cordero PA-C [address] [place] [id number] Referral IDStatusReasonStart DateExpiration DateVisits RequestedVisits [id number] Review PCP Requested Referral /[id number] / ProceduresReferred By ContactReferred To ContactMR IMAGING Diagnoses Communicating hydrocephalus (HCC) Procedures MRI BRAIN LOCALIZATION WO/W IVCON MRI BRAIN BRAIN STEM W/O W/CONTRAST MATERIAL Marlene Cordero PA-C [address] [place] [id number] Mr Imaging [place] [address] Referral IDStatusReasonStart DateExpiration DateVisits RequestedVisits [id number] Review Auto-Generated Referral /[id number] / ProceduresReferred By ContactReferred To [facility] Diagnoses Communicating hydrocephalus (HCC) Procedures ECG COMPLETE ECG ROUTINE ECG W/LEAST 12 LDS W/I&R Marlene Cordero PA-C [address] [place] [id number] [facility] [place] [address] [place] [address] Referral IDStatusReasonStart DateExpiration DateVisits RequestedVisits [id number] Review Auto-Generated Referral /[id number] / ProceduresReferred By ContactReferred To ContactCT IMAGING Diagnoses History of bladder cancer Procedures CT CHEST W IVCON DIAGNOSTIC COMPUTED TOMOGRAPHY THORAX W/CONTRAST Molly Hendrickson APRN.STABLE HELPER [address] [place] [address] Ct Imaging [place] [address] Referral IDStatusReasonStart DateExpiration DateVisits RequestedVisits [id number] Review Auto-Generated Referral /[id number] / ProceduresReferred By ContactReferred To ContactCT IMAGING Diagnoses History of bladder cancer Procedures CT UROGRAM WO/W IVCON CT ABD & PELVIS W/WO CONTRST 1+ BODY REGNS Molly Hendrickson APRN.STABLE HELPER [address] [place] [address] Ct Imaging [facility] Referral IDStatusReasonStart DateExpiration DateVisits RequestedVisits [id number] Review Auto-Generated Referral /[id number] / ProceduresReferred By ContactReferred To ContactUS IMAGING Diagnoses History of bladder cancer Procedures US KIDNEY/BLADDER US RETROPERITONEAL REAL TIME W/IMAGE COMPLETE Molly Hendrickson APRN.STABLE HELPER [address] [place] [address] Us Imaging [place] [address] Referral IDStatusReasonStart DateExpiration DateVisits RequestedVisits [id number] Review Auto-Generated Referral /[id number] / ProceduresReferred By ContactReferred To ContactMR IMAGING Diagnoses Hydrocephalus, adult (HCC) Meningitis, fungal Weakness of both lower extremities Spasticity Procedures MRI THORACIC SPINE WO/W IVCON MRI SPINAL CANAL THORACIC W/O & W/CONTR Tonie Abbott MD [address] [place] [address] Mr Imaging [place] [address] Referral IDStatusReasonStart DateExpiration DateVisits RequestedVisits [id number] Review Auto-Generated Referral [id number] / ProceduresReferred By ContactReferred To ContactMR IMAGING Diagnoses Hydrocephalus, adult (HCC) Meningitis, fungal Weakness of both lower extremities Spasticity Procedures MRI CERVICAL SPINE WO/W IVCON MRI SPINAL CANAL CERVICAL W/O & W/CONTR Tonie Abbott MD [address] [place] [id number] Mr Imaging [place] [address] Referral IDStatusReasonStart DateExpiration DateVisits RequestedVisits [id number] Review Auto-Generated Referral /[id number] / ProceduresReferred By ContactReferred To ContactMR IMAGING Diagnoses Benign intracranial hypertension Procedures MRI BRAIN WO/W IVCON MRI BRAIN BRAIN STEM W/O W/CONTRAST MATERIAL Tonie Rosado MD [address] [facility] [address] [place] [address] [place] [address] Referral IDStatusReasonStart DateExpiration DateVisits RequestedVisits [id number] Review Auto-Generated Referral /[id number] IDStatusReasonStart DateExpiration DateVisits RequestedVisits [id number] Review Auto-Generated Referral /[id number] IDStatusReasonStart DateExpiration DateVisits RequestedVisits [id number] Review PCP Requested Referral /[id number] IDStatusReasonStart DateExpiration DateVisits RequestedVisits [id number] Review Auto-Generated Referral /[id number] IDStatusReasonStart DateExpiration DateVisits RequestedVisits [id number] Review Auto-Generated Referral /[id number] / ProceduresReferred By ContactReferred To Contact Diagnoses Spasticity Procedures CONSULT TO [facility] OFFICE/OUTPATIENT [facility] 60 MINUTES Marlene Cordero PA-C [address] [place] [address] Referral IDStatusReasonStart DateExpiration DateVisits RequestedVisits [id number] Review PCP Requested Referral /[id number] IDStatusReasonStart DateExpiration DateVisits RequestedVisits [id number] Auto-Generated Referral /[id number] / ProceduresReferred By ContactReferred To Contact Diagnoses Other hydrocephalus (HCC) Procedures PROVIDER ORDERED FOLLOW UP OFFICE/OUTPATIENT [facility]DM 60 MINUTES Reggie Butler MD [address] [place] [address] Referral IDStatusReasonStart DateExpiration DateVisits RequestedVisits [id number] Review PCP Requested Referral 1Referral IDStatusReasonStart DateExpiration DateVisits RequestedVisits [id number] Auto-Generated Referral eferral IDStatusReasonStart DateExpiration DateVisits RequestedVisits [id number] Auto-Generated Referral [id number] / ProceduresReferred By ContactReferred To ContactMR IMAGING Diagnoses Cervicalgia Procedures MRI THORACIC SPINE WO/W IVCON MRI SPINAL CANAL THORACIC W/O & W/CONTR Jamie Miller [facility] [address] 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 to Postpone/Reschedule or Not Proceed [id number] / ProceduresReferred By ContactReferred To ContactMR IMAGING Diagnoses Cervicalgia Procedures MRI CERVICAL SPINE WO/W IVCON MRI SPINAL CANAL CERVICAL W/O & W/CONTR Jamie Miller MD [address] [place] [address] Mr Imaging [place] [address] Referral IDStatusReasonStart DateExpiration DateVisits RequestedVisits [id number] Auto-Generated Referral [id number] / ProceduresReferred By ContactReferred To ContactMR IMAGING Diagnoses Cervicalgia Procedures MRI BRAIN WO/W IVCON MRI BRAIN BRAIN STEM W/O W/CONTRAST MATERIAL Jamie Mccarty MD [address] [place] [address] Mr Imaging [place] [address] Referral IDStatusReasonStart DateExpiration DateVisits RequestedVisits [id number] Auto-Generated Referral /[id number] IDStatusReasonStart DateExpiration DateVisits RequestedVisits [id number] Auto-Generated Referral /[id number] IDStatusReasonStart DateExpiration DateVisits RequestedVisits [id number] Auto-Generated Referral /[id number] IDStatusReasonStart DateExpiration DateVisits RequestedVisits [id number] Auto-Generated Referral /[id number] / ProceduresReferred By ContactReferred To ContactCT IMAGING Diagnoses Other hydrocephalus (HCC) Procedures CT BRAIN WO IVCON CT HEAD/BRAIN W/O CONTRAST MATERIAL Con Oconnor MD [address] [place] [address] [address] Imaging [place] [address] Referral IDStatusReasonStart DateExpiration DateVisits RequestedVisits [id number] Auto-Generated Referral OON/Self Pay Override /[id number] IDStatusReasonStart DateExpiration DateVisits RequestedVisits [id number] Review Auto-Generated Referral /[id number] / ProceduresReferred By ContactReferred To ContactCT IMAGING Diagnoses History of bladder cancer Abdominal pain, unspecified abdominal location Procedures CT ABD/PEL W IVCON CT ABD & PELVIS W/CONTRAST Peterson Gonsalez MD [address] [place] [address] [address] Imaging [place] [address] Referral IDStatusReasonStart DateExpiration DateVisits RequestedVisits [id number] Auto-Generated Referral /[id number] IDStatusReasonStart DateExpiration DateVisits RequestedVisits [id number] Auto-Generated Referral /[id number] / ProceduresReferred By ContactReferred To ContactCT IMAGING Diagnoses Malignant neoplasm of urinary bladder, unspecified site (HCC) Procedures CT CHEST WO IVCON CAT SCAN OF CHEST Peterson Gonsalez MD [address] [place] [address] [address] Imaging [place] [address] Referral IDStatusReasonStart DateExpiration DateVisits RequestedVisits [id number] Auto-Generated Referral /[id number] IDStatusReasonStart DateExpiration DateVisits RequestedVisits [id number] Review Auto-Generated Referral /[id number] / ProceduresReferred By ContactReferred To ContactNeurology Diagnoses Spasticity Procedures CONSULT TO NEUROLOGY OFFICE/OUTPATIENT [facility] 60 MINUTES Marlene Cordero PA-C [address] [place] [address] Referral IDStatusReasonStart DateExpiration DateVisits RequestedVisits [id number] Review PCP Requested Referral /[id number] / ProceduresReferred By ContactReferred To ContactPodiatry Diagnoses Ulcer of left foot, unspecified ulcer stage (HCC) Procedures CONSULT TO PODIATRY OFFICE/OUTPATIENT [facility] 60 MINUTES Jamie Mccarty MD [address] [place] [address] Referral IDStatusReasonStart DateExpiration DateVisits RequestedVisits [id number] Review PCP Requested Referral 11/11/[id number] / ProceduresReferred By ContactReferred To Contact Diagnoses History of ileal conduit Procedures DME SUPPLY OR ACCESSORY, NOS Surgery General [address] [place], [place] [id number] [employer] [address] [place] [address] Referral IDStatusReasonStart DateExpiration DateVisits RequestedVisits [id number] Continuity of Care [id number] / ProceduresReferred By ContactReferred To Contact Diagnoses Small bowel obstruction (HCC) Kelsey Victoria PA-C [address] [facility] [place] [id number] Referral IDStatusReasonStart DateExpiration DateVisits RequestedVisits [id number]/28/20243/28/[id number] / Procedures Referred By ContactReferred To Contact Diagnoses Ureter injury, initial encounter Procedures URETEROLYSIS, W/WO REPOSITIONING, URETER, RETROPERITONEAL FIBROSIS Arlene Chambers MD [address] [place] [address] Referral IDStatusReasonStart DateExpiration DateVisits RequestedVisits [id number] [id number] / ProceduresReferred By ContactReferred To Contact Diagnoses History of ileal conduit Ureter injury, initial encounter Procedures URETEROENTEROSTOMY, DIRECT ANASTOMOSIS, URETER TO INTESTINE Arlene Chambers MD [address] [place] [address] Referral IDStatusReasonStart DateExpiration DateVisits RequestedVisits [id number] [id number] / ProceduresReferred By ContactReferred To Contact Diagnoses Communicating hydrocephalus (HCC) Spasticity Procedures PROVIDER ORDERED FOLLOW UP OFFICE/OUTPATIENT [facility] 60 MINUTES Reggie Butler MD [address] [place] [address] Referral IDStatusReasonStart DateExpiration DateVisits RequestedVisits [id number] Review PCP Requested Referral /[id number] IDStatusReasonStart DateExpiration DateVisits RequestedVisits [id number] Auto-Generated Referral / Chief Complaint and Reason for Visit Chief Complaint post surgery,abd rocio n Reason for Visit Abdominal pain Altered mental status Unable to care for self Chief Complaint Open Wound Reason for Visit Bladder cancer Limited mobility Thin build in adult Type 1 diabetes mellitus Walker as ambulation aid Pressure ulcer of sacral region, stage 3 Chief Complaint Open Wound r00.2Reason for VisitBladder cancer Limited mobility Thin build in adult Type 1 diabetes mellitus Walker as ambulation aid Pressure ulcer of sacral region, stage 3 Chief Complaint [facility] Chief Complaint [facility] F/[facility] LEFT EAR PAINReason for VisitHTN (hypertension) Necrosis of intestine Transitional cell bladder cancer Type 1 diabetes mellitus Eustachian tube dysfunction Chief Complaint [facility] F/U LEFT EAR PAIN spasms in leg, right sided sinus pressureReason for VisitHTN (hypertension) Necrosis of intestine Transitional cell bladder cancer Type 1 diabetes mellitus Eustachian tube dysfunction Chronic venous insufficiency HTN (hypertension) Hydrocephalus Muscle spasticity Type 1 diabetes mellitus with hyperglycemia Chief Complaint Admit Date Amb Documentation February 15, 2024 8 :28am SNF f/u February 25, 2024 3:46pm CC Adult Risk Stratification February 242023 3:49pm Reason for Visit Admit Date Chronic venous insufficiency February 242023 3:46pm HTN (hypertension) February 25, 2024 3:46pm Hydrocephalus February 25, 2024 3:46pm Tibia fracture February 25, 2024 3:46pm Type 1 diabetes mellitus with hyperglyce stella February 25, 2024 3:46pm Acute sinus infection February 24 3:46pm Chief Complaint Admit Date Amb Documentation February 15, 2024 8 :28am SNF f/u February 25, 2024 3:46pm CC Adult Risk Stratification February 242023 3:49pm lymphadema April 29, 2024 1 :15pm Reason for Visit Admit Date Chronic venous insufficiency February 242023 3:46pm Foot ulcer, left February 25, 2024 3:46pm HTN (hypertension) February 25, 2024 3:46pm Hydrocephalus February 25, 2024 3:46pm Tibia fracture February 25, 2024 3:46pm Type 1 diabetes mellitus with hyperglyce stella February 25, 2024 3:46pm Chronic venous insufficiency April 1:15pm Foot ulcer, left April 29, 2024 1 :15pm HTN (hypertension) April 29, 2024 1 :15pm Hydrocephalus April 29, 2024 1 :15pm Tibia fracture April 29, 2024 1 :15pm Transitional cell bladder cancer April 29, 2024 1:15pm Type 1 diabetes mellitus with hyperglyce stella April 29, 2024 1:15pm Chief Complaint Admit Date SNF f/u February 25, 2024 3:46pm CC Adult Risk Stratification February 242023 3:49pm lymphadema April 29, 2024 1 :15pm Open Wound May 20, 2024 2 :25pm possible stoma infection May 22, 2 025 11:55am Reason for Visit Admit Date Chronic venous insufficiency February 242023 3:46pm Foot ulcer, left February 25, 2024 3:46pm HTN (hypertension) February 25, 2024 3:46pm Hydrocephalus February 25, 2024 3:46pm Tibia fracture February 25, 2024 3:46pm Type 1 diabetes mellitus with hyperglyce stella February 25, 2024 3:46pm Chronic venous insufficiency April 1:15pm Foot ulcer, left April 29, 2024 1 :15pm HTN (hypertension) April 29, 2024 1 :15pm Hydrocephalus April 29, 2024 1 :15pm Transitional cell bladder cancer April 29, 2024 1:15pm Type 1 diabetes mellitus wit h diabetic peripheral angiopathy without gangrene April 29, 2024 1:15pm Type 1 diabetes mellitus with hyperglyce stella April 29, 2024 1:15pm Chronic venous insufficiency May 2:25pm Impaired mobility and ADLs May 20, 2024 2:25pm Lymphedema May 20, 2024 2 :25pm Pressure injury of left heel, unstageabl e May 20, 2024 2:25pm Type 1 diabetes mellitus May 20 025 2:25pm Chief Complaint Admit Date lymphadema April 29, 2024 1 :15pm Open Wound May 20, 2024 2 :25pm possible stoma infection May 22 025 11:55am L97.521 E10.65 E10.51 M79.89 May 272024 10:02am Reason for Visit Admit Date Chronic venous insufficiency April 1:15pm HTN (hypertension) April 29, 2024 1 :15pm Hydrocephalus April 29, 2024 1 :15pm Transitional cell bladder cancer April 29, 2024 1:15pm Type 1 diabetes mellitus wit h diabetic peripheral angiopathy without gangrene April 29, 2024 1:15pm Type 1 diabetes mellitus with hyperglyce stella April 29, 2024 1:15pm Foot ulcer, left April 29, 2024 1 :15pm Chronic venous insufficiency May 2:25pm Impaired mobility and ADLs May 20, 2024 2:25pm Lymphedema May 20, 2024 2 :25pm Pressure injury of left heel, unstageabl e May 20, 2024 2:25pm Type 1 diabetes mellitus May 20 025 2:25pm Abrasion of abdominal wall May 22, 2024 11:55am 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 May 11:55am Pressure injury of left heel, unstageabl e May 22, 2024 11:55am Spastic diplegia, acquired, lower extrem ity May 22, 2024 11:55am Chief Complaint Admit Date lymphadema April 29, 2024 1 :15pm possible stoma infection May 22 025 11:55am L97.521 E10.65 E10.51 M79.89 May 272024 10:02am Open Wound June 03, 2024 9:25am ref by Sharan Dominguez for PVD, chronic ulc er June 10, 2024 11:44am Reason for Visit Admit Date Chronic venous insufficiency April 1:15pm HTN (hypertension) April 29, 2024 1 :15pm Hydrocephalus April 29, 2024 1 :15pm Transitional cell bladder cancer April 29, 2024 1:15pm Type 1 diabetes mellitus wit h diabetic peripheral angiopathy without gangrene April 29, 2024 1:15pm Type 1 diabetes mellitus with hyperglyce stella April 29, 2024 1:15pm Foot ulcer, left April 29, 2024 1 :15pm Abrasion of abdominal wall May 22, 2024 11:55am 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 May 11:55am Pressure injury of left heel, unstageabl e May 22, 2024 11:55am Spastic diplegia, acquired, lower extrem ity May 22, 2024 11:55am Chronic venous insufficiency June 032024 9:25am Impaired mobility and ADLs May 9:25am Lymphedema June 03, 2024 9:25am Pressure injury of left heel, unstageabl e June 03, 2024 9:25am Type 1 diabetes mellitus June 03, 2024 9:25am Chief Complaint Admit Date lymphadema April 29, 2024 1 :15pm possible stoma infection May 22 11:55am L97.521 E10.65 E10.51 M79.89 May 272024 10:02am ref by Sharan Dominguez for PVD, chronic ulc er June 10, 2024 11:44am Open Wound June 19, 2024 3:20 pm loose stools and blood in stools June 202024 1:28pm Reason for Visit Admit Date Chronic venous insufficiency April 1:15pm HTN (hypertension) April 29, 2024 1 :15pm Hydrocephalus April 29, 2024 1 :15pm Transitional cell bladder cancer April 29, 2024 1:15pm Type 1 diabetes mellitus wit h diabetic peripheral angiopathy without gangrene April 29, 2024 1:15pm Type 1 diabetes mellitus with hyperglyce stella April 29, 2024 1:15pm Foot ulcer, left April 29, 2024 1 :15pm Abrasion of abdominal wall May 22, 2024 11:55am 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 May 11:55am Pressure injury of left heel, unstageabl e May 22, 2024 11:55am Spastic diplegia, acquired, lower extrem ity May 22, 2024 11:55am Peripheral artery disease June 10, 2024 11:44am Chronic venous insufficiency June 19, 2024 3:20pm Impaired mobility and ADLs June 19 3:20pm Lymphedema June 19, 2024 3:20 pm Peripheral artery disease June 19 3:20pm Pressure injury of left heel, stage 3 Ma rch 2024 3:20pm Pressure injury of left heel, unstageabl e June 19, 2024 3:20pm Type 1 diabetes mellitus June 19, 2024 3:20pm Diarrhea June 20, 2024 1:28 pm Rectal bleeding June 20, 2024 1:28 pm Spastic diplegia, acquired, lower extrem ity June 20, 2024 1:28pm Chief Complaint Admit Date lymphadema April 29, 2024 1 :15pm possible stoma infection May 22 11:55am L97.521 E10.65 E10.51 M79.89 May 272024 10:02am ref by Sharan Dominguez for PVD, chronic ulc er June 10, 2024 11:44am loose stools and blood in stools June 202024 1:28pm Open Wound July 03, 2024 1:0 1pm I73.9 I70.213 July 03, 2024 1:1 7pm Reason for Visit Admit Date Chronic venous insufficiency April 1:15pm HTN (hypertension) April 29, 2024 1 :15pm Hydrocephalus April 29, 2024 1 :15pm Transitional cell bladder cancer April 29, 2024 1:15pm Type 1 diabetes mellitus wit h diabetic peripheral angiopathy without gangrene April 29, 2024 1:15pm Type 1 diabetes mellitus with hyperglyce stella April 29, 2024 1:15pm Foot ulcer, left April 29, 2024 1 :15pm Abrasion of abdominal wall May 22, 2024 11:55am 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 May 11:55am Pressure injury of left heel, unstageabl e May 22, 2024 11:55am Spastic diplegia, acquired, lower extrem ity May 22, 2024 11:55am Peripheral artery disease June 10, 2024 11:44am Diarrhea June 20, 2024 1:28 pm Rectal bleeding June 20, 2024 1:28 pm Spastic diplegia, acquired, lower extrem ity June 20, 2024 1:28pm Chronic venous insufficiency July 03, 2024 1:01pm Impaired mobility and ADLs July 03 1:01pm Lymphedema July 03, 2024 1:0 1pm Peripheral artery disease July 03 1:01pm Pressure injury of left heel, stage 3 Ma rch 2024 1:01pm Pressure injury of left heel, unstageabl e July 03, 2024 1:01pm Type 1 diabetes mellitus July 03 1:01pm Chief Complaint Admit Date possible stoma infection May 22 11:55am L97.521 E10.65 E10.51 M79.89 May 272024 10:02am ref by Sharan Dominguez for PVD, chronic ulc er June 10, 2024 11:44am loose stools and blood in stools June 202024 1:28pm I73.9 I70.213 July 03, 2024 1:1 7pm Open Wound July 24, 2024 2:5 1pm Unknown July 28, 2024 3:4 3pm Amb Documentation July 29, 2024 2:2 7pm Reason for Visit Admit Date Abrasion of abdominal wall May 22, 2024 11:55am 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 May 11:55am Pressure injury of left heel, unstageabl e May 22, 2024 11:55am Spastic diplegia, acquired, lower extrem ity May 22, 2024 11:55am Peripheral artery disease June 10, 2024 11:44am Diarrhea June 20, 2024 1:28 pm Rectal bleeding June 20, 2024 1:28 pm Spastic diplegia, acquired, lower extrem ity June 20, 2024 1:28pm Chronic venous insufficiency July 24, 2024 2:51pm Impaired mobility and ADLs July 24 2:51pm Lymphedema July 24, 2024 2:5 1pm Peripheral artery disease July 24 2:51pm Pressure injury of left heel, stage 3 Ap ril 2024 2:51pm Pressure injury of left heel, unstageabl e July 24, 2024 2:51pm Type 1 diabetes mellitus July 24 2:51pm Wound infection July 24, 2024 2:5 1pm Chief Complaint Admit Date possible stoma infection May 22 025 11:55am L97.521 E10.65 E10.51 M79.89 May 272024 10:02am ref by Sharan Dominguez for PVD, chronic ulc er June 10, 2024 11:44am loose stools and blood in stools June 202024 1:28pm I73.9 I70.213 July 03, 2024 1:1 7pm Unknown July 28, 2024 3:4 3pm Amb Documentation July 29, 2024 2:2 7pm Open Wound July 31, 2024 11: 01am [facility] ER; nausea/vomiting August 05, 2024 2:07pm Reason for Visit Admit Date 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 May 11:55am Abrasion of abdominal wall May 22, 2024 11:55am Pressure injury of left heel, unstageabl e May 22, 2024 11:55am Spastic diplegia, acquired, lower extrem ity May 22, 2024 11:55am Peripheral artery disease June 10, 2024 11:44am Diarrhea June 20, 2024 1:28 pm Rectal bleeding June 20, 2024 1:28 pm Spastic diplegia, acquired, lower extrem ity June 20, 2024 1:28pm Chronic venous insufficiency July 31, 2024 11:01am Impaired mobility and ADLs July 31 025 11:01am Lymphedema July 31, 2024 11: 01am Peripheral artery disease July 31 11:01am Pressure injury of left heel, stage 3 Ap 2024 11:01am Wound infection July 31, 2024 11: 01am Pressure injury of left heel, unstageabl e July 31, 2024 11:01am Type 1 diabetes mellitus July 31 11:01am Chronic venous insufficiency August 05, 2024 2:07pm HTN (hypertension) August 05, 2024 2:0 7pm Hydrocephalus August 05, 2024 2:0 7pm Peripheral artery disease August 05 2:07pm Prerenal azotemia August 05, 2024 2:0 7pm Pressure injury of left heel, stage 3 Ap ril 2024 2:07pm Spastic hypertonia Kacie 22nd, 2025 2:0 7pm Transitional cell bladder cancer July 162024 2:07pm Type 1 diabetes mellitus wit h diabetic peripheral angiopathy without gangrene August 05, 2024 2:07pm Type 1 diabetes mellitus with hyperglyce stella August 05, 2024 2:07pm Chief Complaint Admit Date left heel sore November 19, 2024 10: 05am Reason for Visit Admit Date Chronic venous insufficiency November 19, 2024 10:05am Fracture, femur, distal November 19, 2024 10:05am HTN (hypertension) November 19, 2024 10: 05am Hydrocephalus November 19, 2024 10: 05am Multiple rib fractures November 19, 2024 10:05am Peripheral artery disease November 19 10:05am Pressure injury of left heel, stage 3 Au nae 2024 10:05am Spastic hypertonia November 19, 2024 10: 05am Transitional cell bladder cancer November 19, 2024 10:05am Type 1 diabetes mellitus wit h diabetic peripheral angiopathy without gangrene November 19, 2024 10:05am Type 1 diabetes mellitus with hyperglyce stella November 19, 2024 10:05am Vitamin B12 deficiency November 19, 2024 10:05am Chief Complaint Admit Date left heel sore November 19, 2024 10: 05am Open Wound December 10, 2024 11 :08am 1 week December 26, 2024 11:22am Reason for Visit Admit Date Chronic venous insufficiency November 19, 2024 10:05am Fracture, femur, distal November 19, 2024 10:05am HTN (hypertension) November 19, 2024 10: 05am Hydrocephalus November 19, 2024 10: 05am Multiple rib fractures November 19, 2024 10:05am Peripheral artery disease November 19 10:05am Pressure injury of left heel, stage 3 Au nae 2024 10:05am Spastic hypertonia November 19, 2024 10: 05am Transitional cell bladder cancer November 19, 2024 10:05am Type 1 diabetes mellitus wit h diabetic peripheral angiopathy without gangrene November 19, 2024 10:05am Type 1 diabetes mellitus with hyperglyce stella November 19, 2024 10:05am Vitamin B12 deficiency November 19, 2024 10:05am Chronic venous insufficiency November 11:08am Impaired mobility and ADLs December 10, 2024 11:08am Lymphedema December 10, 2024 11 :08am Pressure injury of left heel, stage 3 Au nae 2024 11:08am Type 1 diabetes mellitus wit h diabetic peripheral angiopathy without gangrene December 10, 2024 11:08am Chronic venous insufficiency December 152024 11:22am HTN (hypertension) December 26, 2024 11:22am Hydrocephalus December 26, 2024 11:22am Peripheral artery disease December 11:22am Pressure injury of left heel, stage 3 Se ptember 2024 11:22am Spastic hypertonia December 26, 2024 11:22am Type 1 diabetes mellitus wit h diabetic peripheral angiopathy without gangrene December 26, 2024 11:22am Type 1 diabetes mellitus with hyperglyce stella December 26, 2024 11:22am Chief Complaint Admit Date left heel sore November 19, 2024 10: 05am 1 week December 26, 2024 11:22am Open Wound December 31, 2024 11:04am Reason for Visit Admit Date Chronic venous insufficiency November 19, 2024 10:05am Fracture, femur, distal November 19, 2024 10:05am HTN (hypertension) November 19, 2024 10: 05am Hydrocephalus November 19, 2024 10: 05am Multiple rib fractures November 19, 2024 10:05am Peripheral artery disease November 19 10:05am Pressure injury of left heel, stage 3 Au nae 2024 10:05am Spastic hypertonia November 19, 2024 10: 05am Transitional cell bladder cancer November 19, 2024 10:05am Type 1 diabetes mellitus wit h diabetic peripheral angiopathy without gangrene November 19, 2024 10:05am Type 1 diabetes mellitus with hyperglyce stella November 19, 2024 10:05am Vitamin B12 deficiency November 19, 2024 10:05am Chronic venous insufficiency December 152024 11:22am HTN (hypertension) December 26, 2024 11:22am Hydrocephalus December 26, 2024 11:22am Peripheral artery disease December 11:22am Pressure injury of left heel, stage 1 Se ptember 2024 11:22am Spastic hypertonia December 26, 2024 11:22am Type 1 diabetes mellitus wit h diabetic peripheral angiopathy without gangrene December 26, 2024 11:22am Type 1 diabetes mellitus with hyperglyce stella December 26, 2024 11:22am Chronic venous insufficiency December 152024 11:04am Impaired mobility and ADLs December 11:04am Lymphedema December 31, 2024 11:04am Pressure injury of left heel, stage 3 Se ptember 2024 11:04am Type 1 diabetes mellitus wit h diabetic peripheral angiopathy without gangrene December 31, 2024 11:04am Health Concerns InfectionOnset DateLast IndicatedResolved TimeCOVID-19 Rule-Out12/16/2021/05/2021 9:50 PM EDTCOVID-19 Rule-Out/ 2:32 AM EDTInfectionOnset DateLast IndicatedResolved TimeCOVID-19 Rule-Out //08/2022 3:07 PM EDT Additional Source Comments INFORMATION SOURCE (unrecogn ized section and content) DATE CREATED AUTHOR 06/15/2019 [facility] DATE CREATED AUTHOR AUTHOR'S ORGANIZ ATION 02/12/2021 [facility] DATE CREATED AUTHOR AUTHOR'S ORGANIZ ATION 03/01/2022 [employer] DATE CREATED AUTHOR AUTHOR'S ORGANIZ ATION 06/09/2022 [facility] DATE CREATED AUTHOR AUTHOR'S ORGANIZ ATION 09/26/2022 [facility] DATE CREATED AUTHOR AUTHOR'S ORGANIZ ATION 12/19/2022 [facility] DATE CREATED AUTHOR AUTHOR'S ORGANIZ ATION 09/04/2023 [facility] DATE CREATED AUTHOR AUTHOR'S ORGANIZ ATION 10/12/2023 [facility] DATE CREATED AUTHOR AUTHOR'S ORGANIZ ATION 03/20/2024 [facility] DATE CREATED AUTHOR AUTHOR'S ORGANIZ ATION 09/19/2024 [facility] DATE CREATED AUTHOR AUTHOR'S ORGANIZ ATION 01/28/2025 [facility] DATE CREATED AUTHOR AUTHOR'S ORGANIZ ATION 02/13/2025 [facility] DATE CREATED AUTHOR AUTHOR'S ORGANIZ ATION 02/18/2025 [facility] Source Comments (unrecognize d section and content) In the event this informatio n is protected by the Federal Confidentiality of Alcohol and Drug Abuse Patient Records regulations: The Federal rules restrict any use of the information to criminally investigate or prosecute any alcohol or drug abuse patient.[facility] System[facility] the event this information is protected by the Federal Confidentiality of Alcohol and Drug Abuse Patient Records regulations: The Federal rules restrict any use of the information to criminally investigate or prosecute any alcohol or drug abuse patient.[facility] SystemIn the event this information is protected by the Federal Confidentiality of Alcohol and Drug Abuse Patient Records regulations: The Federal rules restrict any use of the information to criminally investigate or prosecute any alcohol or drug abuse patient.[facility] SystemIn the event this information is protected by the Federal Confidentiality of Alcohol and Drug Abuse Patient Records regulations: The Federal rules restrict any use of the information to criminally investigate or prosecute any alcohol or drug abuse patient.[facility] SystemIn the event this information is protected by the Federal Confidentiality of Alcohol and Drug Abuse Patient Records regulations: The Federal rules restrict any use of the information to criminally investigate or prosecute any alcohol or drug abuse patient.[facility] SystemIn the event this information is protected by the Federal Confidentiality of Alcohol and Drug Abuse Patient Records regulations: The Federal rules restrict any use of the information to criminally investigate or prosecute any alcohol or drug abuse patient.[facility] SystemIn the event this information is protected by the Federal Confidentiality of Alcohol and Drug Abuse Patient Records regulations: The Federal rules restrict any use of the information to criminally investigate or prosecute any alcohol or drug abuse patient.[facility] SystemIn the event this information is protected by the Federal Confidentiality of Alcohol and Drug Abuse Patient Records regulations: The Federal rules restrict any use of the information to criminally investigate or prosecute any alcohol or drug abuse patient.[facility] SystemIn the event this information is protected by the Federal Confidentiality of Alcohol and Drug Abuse Patient Records regulations: The Federal rules restrict any use of the information to criminally investigate or prosecute any alcohol or drug abuse patient.[facility] SystemIn the event this information is protected by the Federal Confidentiality of Alcohol and Drug Abuse Patient Records regulations: The Federal rules restrict any use of the information to criminally investigate or prosecute any alcohol or drug abuse patient.[facility] SystemIn the event this information is protected by the Federal Confidentiality of Alcohol and Drug Abuse Patient Records regulations: The Federal rules restrict any use of the information to criminally investigate or prosecute any alcohol or drug abuse patient.[facility] SystemIn the event this information is protected by the Federal Confidentiality of Alcohol and Drug Abuse Patient Records regulations: The Federal rules restrict any use of the information to criminally investigate or prosecute any alcohol or drug abuse patient.[facility] SystemIn the event this information is protected by the Federal Confidentiality of Alcohol and Drug Abuse Patient Records regulations: The Federal rules restrict any use of the information to criminally investigate or prosecute any alcohol or drug abuse patient.[facility] SystemIn the event this information is protected by the Federal Confidentiality of Alcohol and Drug Abuse Patient Records regulations: The Federal rules restrict any use of the information to criminally investigate or prosecute any alcohol or drug abuse patient.[facility] SystemIn the event this information is protected by the Federal Confidentiality of Alcohol and Drug Abuse Patient Records regulations: The Federal rules restrict any use of the information to criminally investigate or prosecute any alcohol or drug abuse patient.[facility] SystemIn the event this information is protected by the Federal Confidentiality of Alcohol and Drug Abuse Patient Records regulations: The Federal rules restrict any use of the information to criminally investigate or prosecute any alcohol or drug abuse patient.[facility] SystemIn the event this information is protected by the Federal Confidentiality of Alcohol and Drug Abuse Patient Records regulations: The Federal rules restrict any use of the information to criminally investigate or prosecute any alcohol or drug abuse patient.[facility] SystemIn the event this information is protected by the Federal Confidentiality of Alcohol and Drug Abuse Patient Records regulations: The Federal rules restrict any use of the information to criminally investigate or prosecute any alcohol or drug abuse patient.[facility]In the event this information is protected by the Federal Confidentiality of Alcohol and Drug Abuse Patient Records regulations: The Federal rules restrict any use of the information to criminally investigate or prosecute any alcohol or drug abuse patient.[facility]In the event this information is protected by the Federal Confidentiality of Alcohol and Drug Abuse Patient Records regulations: The Federal rules restrict any use of the information to criminally investigate or prosecute any alcohol or drug abuse patient.[facility]In the event this information is protected by the Federal Confidentiality of Alcohol and Drug Abuse Patient Records regulations: The Federal rules restrict any use of the information to criminally investigate or prosecute any alcohol or drug abuse patient.[facility]In the event this information is protected by the Federal Confidentiality of Alcohol and Drug Abuse Patient Records regulations: The Federal rules restrict any use of the information to criminally investigate or prosecute any alcohol or drug abuse patient.[facility]In the event this information is protected by the Federal Confidentiality of Alcohol and Drug Abuse Patient Records regulations: The Federal rules restrict any use of the information to criminally investigate or prosecute any alcohol or drug abuse patient.[facility]In the event this information is protected by the Federal Confidentiality of Alcohol and Drug Abuse Patient Records regulations: The Federal rules restrict any use of the information to criminally investigate or prosecute any alcohol or drug abuse patient.[facility]In the event this information is protected by the Federal Confidentiality of Alcohol and Drug Abuse Patient Records regulations: The Federal rules restrict any use of the information to criminally investigate or prosecute any alcohol or drug abuse patient.[facility]In the event this information is protected by the Federal Confidentiality of Alcohol and Drug Abuse Patient Records regulations: The Federal rules restrict any use of the information to criminally investigate or prosecute any alcohol or drug abuse patient.[facility]In the event this information is protected by the Federal Confidentiality of Alcohol and Drug Abuse Patient Records regulations: The Federal rules restrict any use of the information to criminally investigate or prosecute any alcohol or drug abuse patient.[facility]In the event this information is protected by the Federal Confidentiality of Alcohol and Drug Abuse Patient Records regulations: The Federal rules restrict any use of the information to criminally investigate or prosecute any alcohol or drug abuse patient.[facility]In the event this information is protected by the Federal Confidentiality of Alcohol and Drug Abuse Patient Records regulations: The Federal rules restrict any use of the information to criminally investigate or prosecute any alcohol or drug abuse patient.[facility]In the event this information is protected by the Federal Confidentiality of Alcohol and Drug Abuse Patient Records regulations: The Federal rules restrict any use of the information to criminally investigate or prosecute any alcohol or drug abuse patient.[facility]In the event this information is protected by the Federal Confidentiality of Alcohol and Drug Abuse Patient Records regulations: The Federal rules restrict any use of the information to criminally investigate or prosecute any alcohol or drug abuse patient.[facility]In the event this information is protected by the Federal Confidentiality of Alcohol and Drug Abuse Patient Records regulations: The Federal rules restrict any use of the information to criminally investigate or prosecute any alcohol or drug abuse patient.[facility]In the event this information is protected by the Federal Confidentiality of Alcohol and Drug Abuse Patient Records regulations: The Federal rules restrict any use of the information to criminally investigate or prosecute any alcohol or drug abuse patient.[facility]In the event this information is protected by the Federal Confidentiality of Alcohol and Drug Abuse Patient Records regulations: The Federal rules restrict any use of the information to criminally investigate or prosecute any alcohol or drug abuse patient.[facility]In the event this information is protected by the Federal Confidentiality of Alcohol and Drug Abuse Patient Records regulations: The Federal rules restrict any use of the information to criminally investigate or prosecute any alcohol or drug abuse patient.[facility]In the event this information is protected by the Federal Confidentiality of Alcohol and Drug Abuse Patient Records regulations: The Federal rules restrict any use of the information to criminally investigate or prosecute any alcohol or drug abuse patient.[facility]In the event this information is protected by the Federal Confidentiality of Alcohol and Drug Abuse Patient Records regulations: The Federal rules restrict any use of the information to criminally investigate or prosecute any alcohol or drug abuse patient.[facility]In the event this information is protected by the Federal Confidentiality of Alcohol and Drug Abuse Patient Records regulations: The Federal rules restrict any use of the information to criminally investigate or prosecute any alcohol or drug abuse patient.[facility]In the event this information is protected by the Federal Confidentiality of Alcohol and Drug Abuse Patient Records regulations: The Federal rules restrict any use of the information to criminally investigate or prosecute any alcohol or drug abuse patient.[facility]In the event this information is protected by the Federal Confidentiality of Alcohol and Drug Abuse Patient Records regulations: The Federal rules restrict any use of the information to criminally investigate or prosecute any alcohol or drug abuse patient.[facility]In the event this information is protected by the Federal Confidentiality of Alcohol and Drug Abuse Patient Records regulations: The Federal rules restrict any use of the information to criminally investigate or prosecute any alcohol or drug abuse patient.[facility]In the event this information is protected by the Federal Confidentiality of Alcohol and Drug Abuse Patient Records regulations: The Federal rules restrict any use of the information to criminally investigate or prosecute any alcohol or drug abuse patient.[facility]In the event this information is protected by the Federal Confidentiality of Alcohol and Drug Abuse Patient Records regulations: The Federal rules restrict any use of the information to criminally investigate or prosecute any alcohol or drug abuse patient.[facility]In the event this information is protected by the Federal Confidentiality of Alcohol and Drug Abuse Patient Records regulations: The Federal rules restrict any use of the information to criminally investigate or prosecute any alcohol or drug abuse patient.[facility]In the event this information is protected by the Federal Confidentiality of Alcohol and Drug Abuse Patient Records regulations: The Federal rules restrict any use of the information to criminally investigate or prosecute any alcohol or drug abuse patient.[facility]In the event this information is protected by the Federal Confidentiality of Alcohol and Drug Abuse Patient Records regulations: The Federal rules restrict any use of the information to criminally investigate or prosecute any alcohol or drug abuse patient.[facility]In the event this information is protected by the Federal Confidentiality of Alcohol and Drug Abuse Patient Records regulations: The Federal rules restrict any use of the information to criminally investigate or prosecute any alcohol or drug abuse patient.[facility]In the event this information is protected by the Federal Confidentiality of Alcohol and Drug Abuse Patient Records regulations: The Federal rules restrict any use of the information to criminally investigate or prosecute any alcohol or drug abuse patient.[facility]In the event this information is protected by the Federal Confidentiality of Alcohol and Drug Abuse Patient Records regulations: The Federal rules restrict any use of the information to criminally investigate or prosecute any alcohol or drug abuse patient.[facility]In the event this information is protected by the Federal Confidentiality of Alcohol and Drug Abuse Patient Records regulations: The Federal rules restrict any use of the information to criminally investigate or prosecute any alcohol or drug abuse patient.[facility]In the event this information is protected by the Federal Confidentiality of Alcohol and Drug Abuse Patient Records regulations: The Federal rules restrict any use of the information to criminally investigate or prosecute any alcohol or drug abuse patient.[facility]In the event this information is protected by the Federal Confidentiality of Alcohol and Drug Abuse Patient Records regulations: The Federal rules restrict any use of the information to criminally investigate or prosecute any alcohol or drug abuse patient.[facility]In the event this information is protected by the Federal Confidentiality of Alcohol and Drug Abuse Patient Records regulations: The Federal rules restrict any use of the information to criminally investigate or prosecute any alcohol or drug abuse patient.[facility]In the event this information is protected by the Federal Confidentiality of Alcohol and Drug Abuse Patient Records regulations: The Federal rules restrict any use of the information to criminally investigate or prosecute any alcohol or drug abuse patient.[facility]In the event this information is protected by the Federal Confidentiality of Alcohol and Drug Abuse Patient Records regulations: The Federal rules restrict any use of the information to criminally investigate or prosecute any alcohol or drug abuse patient.[facility]In the event this information is protected by the Federal Confidentiality of Alcohol and Drug Abuse Patient Records regulations: The Federal rules restrict any use of the information to criminally investigate or prosecute any alcohol or drug abuse patient.[facility]In the event this information is protected by the Federal Confidentiality of Alcohol and Drug Abuse Patient Records regulations: The Federal rules restrict any use of the information to criminally investigate or prosecute any alcohol or drug abuse patient.[facility]In the event this information is protected by the Federal Confidentiality of Alcohol and Drug Abuse Patient Records regulations: The Federal rules restrict any use of the information to criminally investigate or prosecute any alcohol or drug abuse patient.[facility]In the event this information is protected by the Federal Confidentiality of Alcohol and Drug Abuse Patient Records regulations: The Federal rules restrict any use of the information to criminally investigate or prosecute any alcohol or drug abuse patient.[facility]In the event this information is protected by the Federal Confidentiality of Alcohol and Drug Abuse Patient Records regulations: The Federal rules restrict any use of the information to criminally investigate or prosecute any alcohol or drug abuse patient.[facility]In the event this information is protected by the Federal Confidentiality of Alcohol and Drug Abuse Patient Records regulations: The Federal rules restrict any use of the information to criminally investigate or prosecute any alcohol or drug abuse patient.[facility]In the event this information is protected by the Federal Confidentiality of Alcohol and Drug Abuse Patient Records regulations: The Federal rules restrict any use of the information to criminally investigate or prosecute any alcohol or drug abuse patient.[facility]In the event this information is protected by the Federal Confidentiality of Alcohol and Drug Abuse Patient Records regulations: The Federal rules restrict any use of the information to criminally investigate or prosecute any alcohol or drug abuse patient.[facility]In the event this information is protected by the Federal Confidentiality of Alcohol and Drug Abuse Patient Records regulations: The Federal rules restrict any use of the information to criminally investigate or prosecute any alcohol or drug abuse patient.[facility]In the event this information is protected by the Federal Confidentiality of Alcohol and Drug Abuse Patient Records regulations: The Federal rules restrict any use of the information to criminally investigate or prosecute any alcohol or drug abuse patient.[facility]In the event this information is protected by the Federal Confidentiality of Alcohol and Drug Abuse Patient Records regulations: The Federal rules restrict any use of the information to criminally investigate or prosecute any alcohol or drug abuse patient.[facility]In the event this information is protected by the Federal Confidentiality of Alcohol and Drug Abuse Patient Records regulations: The Federal rules restrict any use of the information to criminally investigate or prosecute any alcohol or drug abuse patient.[facility]In the event this information is protected by the Federal Confidentiality of Alcohol and Drug Abuse Patient Records regulations: The Federal rules restrict any use of the information to criminally investigate or prosecute any alcohol or drug abuse patient.[facility]In the event this information is protected by the Federal Confidentiality of Alcohol and Drug Abuse Patient Records regulations: The Federal rules restrict any use of the information to criminally investigate or prosecute any alcohol or drug abuse patient.[facility]In the event this information is protected by the Federal Confidentiality of Alcohol and Drug Abuse Patient Records regulations: The Federal rules restrict any use of the information to criminally investigate or prosecute any alcohol or drug abuse patient.[facility]In the event this information is protected by the Federal Confidentiality of Alcohol and Drug Abuse Patient Records regulations: The Federal rules restrict any use of the information to criminally investigate or prosecute any alcohol or drug abuse patient.[facility]In the event this information is protected by the Federal Confidentiality of Alcohol and Drug Abuse Patient Records regulations: The Federal rules restrict any use of the information to criminally investigate or prosecute any alcohol or drug abuse patient.[facility]In the event this information is protected by the Federal Confidentiality of Alcohol and Drug Abuse Patient Records regulations: The Federal rules restrict any use of the information to criminally investigate or prosecute any alcohol or drug abuse patient.[facility]In the event this information is protected by the Federal Confidentiality of Alcohol and Drug Abuse Patient Records regulations: The Federal rules restrict any use of the information to criminally investigate or prosecute any alcohol or drug abuse patient.[facility]In the event this information is protected by the Federal Confidentiality of Alcohol and Drug Abuse Patient Records regulations: The Federal rules restrict any use of the information to criminally investigate or prosecute any alcohol or drug abuse patient.[facility]In the event this information is protected by the Federal Confidentiality of Alcohol and Drug Abuse Patient Records regulations: The Federal rules restrict any use of the information to criminally investigate or prosecute any alcohol or drug abuse patient.[facility]In the event this information is protected by the Federal Confidentiality of Alcohol and Drug Abuse Patient Records regulations: The Federal rules restrict any use of the information to criminally investigate or prosecute any alcohol or drug abuse patient.[facility]In the event this information is protected by the Federal Confidentiality of Alcohol and Drug Abuse Patient Records regulations: The Federal rules restrict any use of the information to criminally investigate or prosecute any alcohol or drug abuse patient.[facility]In the event this information is protected by the Federal Confidentiality of Alcohol and Drug Abuse Patient Records regulations: The Federal rules restrict any use of the information to criminally investigate or prosecute any alcohol or drug abuse patient.[facility]In the event this information is protected by the Federal Confidentiality of Alcohol and Drug Abuse Patient Records regulations: The Federal rules restrict any use of the information to criminally investigate or prosecute any alcohol or drug abuse patient.[facility]In the event this information is protected by the Federal Confidentiality of Alcohol and Drug Abuse Patient Records regulations: The Federal rules restrict any use of the information to criminally investigate or prosecute any alcohol or drug abuse patient.[facility]In the event this information is protected by the Federal Confidentiality of Alcohol and Drug Abuse Patient Records regulations: The Federal rules restrict any use of the information to criminally investigate or prosecute any alcohol or drug abuse patient.[facility]In the event this information is protected by the Federal Confidentiality of Alcohol and Drug Abuse Patient Records regulations: The Federal rules restrict any use of the information to criminally investigate or prosecute any alcohol or drug abuse patient.[facility]In the event this information is protected by the Federal Confidentiality of Alcohol and Drug Abuse Patient Records regulations: The Federal rules restrict any use of the information to criminally investigate or prosecute any alcohol or drug abuse patient.[facility]In the event this information is protected by the Federal Confidentiality of Alcohol and Drug Abuse Patient Records regulations: The Federal rules restrict any use of the information to criminally investigate or prosecute any alcohol or drug abuse patient.[facility]In the event this information is protected by the Federal Confidentiality of Alcohol and Drug Abuse Patient Records regulations: The Federal rules restrict any use of the information to criminally investigate or prosecute any alcohol or drug abuse patient.[facility]In the event this information is protected by the Federal Confidentiality of Alcohol and Drug Abuse Patient Records regulations: The Federal rules restrict any use of the information to criminally investigate or prosecute any alcohol or drug abuse patient.[facility]In the event this information is protected by the Federal Confidentiality of Alcohol and Drug Abuse Patient Records regulations: The Federal rules restrict any use of the information to criminally investigate or prosecute any alcohol or drug abuse patient.[facility]In the event this information is protected by the Federal Confidentiality of Alcohol and Drug Abuse Patient Records regulations: The Federal rules restrict any use of the information to criminally investigate or prosecute any alcohol or drug abuse patient.[facility]In the event this information is protected by the Federal Confidentiality of Alcohol and Drug Abuse Patient Records regulations: The Federal rules restrict any use of the information to criminally investigate or prosecute any alcohol or drug abuse patient.[facility]In the event this information is protected by the Federal Confidentiality of Alcohol and Drug Abuse Patient Records regulations: The Federal rules restrict any use of the information to criminally investigate or prosecute any alcohol or drug abuse patient.[facility]In the event this information is protected by the Federal Confidentiality of Alcohol and Drug Abuse Patient Records regulations: The Federal rules restrict any use of the information to criminally investigate or prosecute any alcohol or drug abuse patient.[facility]In the event this information is protected by the Federal Confidentiality of Alcohol and Drug Abuse Patient Records regulations: The Federal rules restrict any use of the information to criminally investigate or prosecute any alcohol or drug abuse patient.[facility]In the event this information is protected by the Federal Confidentiality of Alcohol and Drug Abuse Patient Records regulations: The Federal rules restrict any use of the information to criminally investigate or prosecute any alcohol or drug abuse patient.[facility]In the event this information is protected by the Federal Confidentiality of Alcohol and Drug Abuse Patient Records regulations: The Federal rules restrict any use of the information to criminally investigate or prosecute any alcohol or drug abuse patient.[facility] SystemIn the event this information is protected by the Federal Confidentiality of Alcohol and Drug Abuse Patient Records regulations: The Federal rules restrict any use of the information to criminally investigate or prosecute any alcohol or drug abuse patient.[facility] SystemIn the event this information is protected by the Federal Confidentiality of Alcohol and Drug Abuse Patient Records regulations: The Federal rules restrict any use of the information to criminally investigate or prosecute any alcohol or drug abuse patient.[facility] SystemIn the event this information is protected by the Federal Confidentiality of Alcohol and Drug Abuse Patient Records regulations: The Federal rules restrict any use of the information to criminally investigate or prosecute any alcohol or drug abuse patient.[facility] SystemIn the event this information is protected by the Federal Confidentiality of Alcohol and Drug Abuse Patient Records regulations: The Federal rules restrict any use of the information to criminally investigate or prosecute any alcohol or drug abuse patient.[facility] SystemIn the event this information is protected by the Federal Confidentiality of Alcohol and Drug Abuse Patient Records regulations: The Federal rules restrict any use of the information to criminally investigate or prosecute any alcohol or drug abuse patient.[facility] SystemIn the event this information is protected by the Federal Confidentiality of Alcohol and Drug Abuse Patient Records regulations: The Federal rules restrict any use of the information to criminally investigate or prosecute any alcohol or drug abuse patient.[facility]In the event this information is protected by the Federal Confidentiality of Alcohol and Drug Abuse Patient Records regulations: The Federal rules restrict any use of the information to criminally investigate or prosecute any alcohol or drug abuse patient.[facility] SystemIn the event this information is protected by the Federal Confidentiality of Alcohol and Drug Abuse Patient Records regulations: The Federal rules restrict any use of the information to criminally investigate or prosecute any alcohol or drug abuse patient.[facility] SystemIn the event this information is protected by the Federal Confidentiality of Alcohol and Drug Abuse Patient Records regulations: The Federal rules restrict any use of the information to criminally investigate or prosecute any alcohol or drug abuse patient.[facility]In the event this information is protected by the Federal Confidentiality of Alcohol and Drug Abuse Patient Records regulations: The Federal rules restrict any use of the information to criminally investigate or prosecute any alcohol or drug abuse patient.[facility]In the event this information is protected by the Federal Confidentiality of Alcohol and Drug Abuse Patient Records regulations: The Federal rules restrict any use of the information to criminally investigate or prosecute any alcohol or drug abuse patient.[facility]In the event this information is protected by the Federal Confidentiality of Alcohol and Drug Abuse Patient Records regulations: The Federal rules restrict any use of the information to criminally investigate or prosecute any alcohol or drug abuse patient.[facility]In the event this information is protected by the Federal Confidentiality of Alcohol and Drug Abuse Patient Records regulations: The Federal rules restrict any use of the information to criminally investigate or prosecute any alcohol or drug abuse patient.[facility]In the event this information is protected by the Federal Confidentiality of Alcohol and Drug Abuse Patient Records regulations: The Federal rules restrict any use of the information to criminally investigate or prosecute any alcohol or drug abuse patient.[facility]In the event this information is protected by the Federal Confidentiality of Alcohol and Drug Abuse Patient Records regulations: The Federal rules restrict any use of the information to criminally investigate or prosecute any alcohol or drug abuse patient.[facility] SystemIn the event this information is protected by the Federal Confidentiality of Alcohol and Drug Abuse Patient Records regulations: The Federal rules restrict any use of the information to criminally investigate or prosecute any alcohol or drug abuse patient.[facility]In the event this information is protected by the Federal Confidentiality of Alcohol and Drug Abuse Patient Records regulations: The Federal rules restrict any use of the information to criminally investigate or prosecute any alcohol or drug abuse patient.[facility]In the event this information is protected by the Federal Confidentiality of Alcohol and Drug Abuse Patient Records regulations: The Federal rules restrict any use of the information to criminally investigate or prosecute any alcohol or drug abuse patient.[facility]In the event this information is protected by the Federal Confidentiality of Alcohol and Drug Abuse Patient Records regulations: The Federal rules restrict any use of the information to criminally investigate or prosecute any alcohol or drug abuse patient.[facility] SystemIn the event this information is protected by the Federal Confidentiality of Alcohol and Drug Abuse Patient Records regulations: The Federal rules restrict any use of the information to criminally investigate or prosecute any alcohol or drug abuse patient.[facility]In the event this information is protected by the Federal Confidentiality of Alcohol and Drug Abuse Patient Records regulations: The Federal rules restrict any use of the information to criminally investigate or prosecute any alcohol or drug abuse patient.[facility]In the event this information is protected by the Federal Confidentiality of Alcohol and Drug Abuse Patient Records regulations: The Federal rules restrict any use of the information to criminally investigate or prosecute any alcohol or drug abuse patient.[facility]In the event this information is protected by the Federal Confidentiality of Alcohol and Drug Abuse Patient Records regulations: The Federal rules restrict any use of the information to criminally investigate or prosecute any alcohol or drug abuse patient.[facility]In the event this information is protected by the Federal Confidentiality of Alcohol and Drug Abuse Patient Records regulations: The Federal rules restrict any use of the information to criminally investigate or prosecute any alcohol or drug abuse patient.[facility]In the event this information is protected by the Federal Confidentiality of Alcohol and Drug Abuse Patient Records regulations: The Federal rules restrict any use of the information to criminally investigate or prosecute any alcohol or drug abuse patient.[facility]In the event this information is protected by the Federal Confidentiality of Alcohol and Drug Abuse Patient Records regulations: The Federal rules restrict any use of the information to criminally investigate or prosecute any alcohol or drug abuse patient.[facility] SystemIn the event this information is protected by the Federal Confidentiality of Alcohol and Drug Abuse Patient Records regulations: The Federal rules restrict any use of the information to criminally investigate or prosecute any alcohol or drug abuse patient.[facility]In the event this information is protected by the Federal Confidentiality of Alcohol and Drug Abuse Patient Records regulations: The Federal rules restrict any use of the information to criminally investigate or prosecute any alcohol or drug abuse patient.[facility]In the event this information is protected by the Federal Confidentiality of Alcohol and Drug Abuse Patient Records regulations: The Federal rules restrict any use of the information to criminally investigate or prosecute any alcohol or drug abuse patient.[facility] SystemIn the event this information is protected by the Federal Confidentiality of Alcohol and Drug Abuse Patient Records regulations: The Federal rules restrict any use of the information to criminally investigate or prosecute any alcohol or drug abuse patient.[facility]In the event this information is protected by the Federal Confidentiality of Alcohol and Drug Abuse Patient Records regulations: The Federal rules restrict any use of the information to criminally investigate or prosecute any alcohol or drug abuse patient.[facility]In the event this information is protected by the Federal Confidentiality of Alcohol and Drug Abuse Patient Records regulations: The Federal rules restrict any use of the information to criminally investigate or prosecute any alcohol or drug abuse patient.[facility] SystemIn the event this information is protected by the Federal Confidentiality of Alcohol and Drug Abuse Patient Records regulations: The Federal rules restrict any use of the information to criminally investigate or prosecute any alcohol or drug abuse patient.[facility]In the event this information is protected by the Federal Confidentiality of Alcohol and Drug Abuse Patient Records regulations: The Federal rules restrict any use of the information to criminally investigate or prosecute any alcohol or drug abuse patient.[facility]In the event this information is protected by the Federal Confidentiality of Alcohol and Drug Abuse Patient Records regulations: The Federal rules restrict any use of the information to criminally investigate or prosecute any alcohol or drug abuse patient.[facility]In the event this information is protected by the Federal Confidentiality of Alcohol and Drug Abuse Patient Records regulations: The Federal rules restrict any use of the information to criminally investigate or prosecute any alcohol or drug abuse patient.[facility]In the event this information is protected by the Federal Confidentiality of Alcohol and Drug Abuse Patient Records regulations: The Federal rules restrict any use of the information to criminally investigate or prosecute any alcohol or drug abuse patient.[facility]In the event this information is protected by the Federal Confidentiality of Alcohol and Drug Abuse Patient Records regulations: The Federal rules restrict any use of the information to criminally investigate or prosecute any alcohol or drug abuse patient.[facility]In the event this information is protected by the Federal Confidentiality of Alcohol and Drug Abuse Patient Records regulations: The Federal rules restrict any use of the information to criminally investigate or prosecute any alcohol or drug abuse patient.[facility]In the event this information is protected by the Federal Confidentiality of Alcohol and Drug Abuse Patient Records regulations: The Federal rules restrict any use of the information to criminally investigate or prosecute any alcohol or drug abuse patient.[facility]In the event this information is protected by the Federal Confidentiality of Alcohol and Drug Abuse Patient Records regulations: The Federal rules restrict any use of the information to criminally investigate or prosecute any alcohol or drug abuse patient.[facility]In the event this information is protected by the Federal Confidentiality of Alcohol and Drug Abuse Patient Records regulations: The Federal rules restrict any use of the information to criminally investigate or prosecute any alcohol or drug abuse patient.[facility]In the event this information is protected by the Federal Confidentiality of Alcohol and Drug Abuse Patient Records regulations: The Federal rules restrict any use of the information to criminally investigate or prosecute any alcohol or drug abuse patient.[facility]In the event this information is protected by the Federal Confidentiality of Alcohol and Drug Abuse Patient Records regulations: The Federal rules restrict any use of the information to criminally investigate or prosecute any alcohol or drug abuse patient.[facility]In the event this information is protected by the Federal Confidentiality of Alcohol and Drug Abuse Patient Records regulations: The Federal rules restrict any use of the information to criminally investigate or prosecute any alcohol or drug abuse patient.[facility]In the event this information is protected by the Federal Confidentiality of Alcohol and Drug Abuse Patient Records regulations: The Federal rules restrict any use of the information to criminally investigate or prosecute any alcohol or drug abuse patient.[facility]In the event this information is protected by the Federal Confidentiality of Alcohol and Drug Abuse Patient Records regulations: The Federal rules restrict any use of the information to criminally investigate or prosecute any alcohol or drug abuse patient.[facility]In the event this information is protected by the Federal Confidentiality of Alcohol and Drug Abuse Patient Records regulations: The Federal rules restrict any use of the information to criminally investigate or prosecute any alcohol or drug abuse patient.[facility]In the event this information is protected by the Federal Confidentiality of Alcohol and Drug Abuse Patient Records regulations: The Federal rules restrict any use of the information to criminally investigate or prosecute any alcohol or drug abuse patient.[facility]In the event this information is protected by the Federal Confidentiality of Alcohol and Drug Abuse Patient Records regulations: The Federal rules restrict any use of the information to criminally investigate or prosecute any alcohol or drug abuse patient.[facility]In the event this information is protected by the Federal Confidentiality of Alcohol and Drug Abuse Patient Records regulations: The Federal rules restrict any use of the information to criminally investigate or prosecute any alcohol or drug abuse patient.[facility]In the event this information is protected by the Federal Confidentiality of Alcohol and Drug Abuse Patient Records regulations: The Federal rules restrict any use of the information to criminally investigate or prosecute any alcohol or drug abuse patient.[facility]In the event this information is protected by the Federal Confidentiality of Alcohol and Drug Abuse Patient Records regulations: The Federal rules restrict any use of the information to criminally investigate or prosecute any alcohol or drug abuse patient.[facility]In the event this information is protected by the Federal Confidentiality of Alcohol and Drug Abuse Patient Records regulations: The Federal rules restrict any use of the information to criminally investigate or prosecute any alcohol or drug abuse patient.[facility]In the event this information is protected by the Federal Confidentiality of Alcohol and Drug Abuse Patient Records regulations: The Federal rules restrict any use of the information to criminally investigate or prosecute any alcohol or drug abuse patient.[facility]In the event this information is protected by the Federal Confidentiality of Alcohol and Drug Abuse Patient Records regulations: The Federal rules restrict any use of the information to criminally investigate or prosecute any alcohol or drug abuse patient.[facility]In the event this information is protected by the Federal Confidentiality of Alcohol and Drug Abuse Patient Records regulations: The Federal rules restrict any use of the information to criminally investigate or prosecute any alcohol or drug abuse patient.[facility]In the event this information is protected by the Federal Confidentiality of Alcohol and Drug Abuse Patient Records regulations: The Federal rules restrict any use of the information to criminally investigate or prosecute any alcohol or drug abuse patient.[facility]In the event this information is protected by the Federal Confidentiality of Alcohol and Drug Abuse Patient Records regulations: The Federal rules restrict any use of the information to criminally investigate or prosecute any alcohol or drug abuse patient.[facility]In the event this information is protected by the Federal Confidentiality of Alcohol and Drug Abuse Patient Records regulations: The Federal rules restrict any use of the information to criminally investigate or prosecute any alcohol or drug abuse patient.[facility]In the event this information is protected by the Federal Confidentiality of Alcohol and Drug Abuse Patient Records regulations: The Federal rules restrict any use of the information to criminally investigate or prosecute any alcohol or drug abuse patient.[facility]In the event this information is protected by the Federal Confidentiality of Alcohol and Drug Abuse Patient Records regulations: The Federal rules restrict any use of the information to criminally investigate or prosecute any alcohol or drug abuse patient.[facility]In the event this information is protected by the Federal Confidentiality of Alcohol and Drug Abuse Patient Records regulations: The Federal rules restrict any use of the information to criminally investigate or prosecute any alcohol or drug abuse patient.[facility]In the event this information is protected by the Federal Confidentiality of Alcohol and Drug Abuse Patient Records regulations: The Federal rules restrict any use of the information to criminally investigate or prosecute any alcohol or drug abuse patient.[facility]In the event this information is protected by the Federal Confidentiality of Alcohol and Drug Abuse Patient Records regulations: The Federal rules restrict any use of the information to criminally investigate or prosecute any alcohol or drug abuse patient.[facility]In the event this information is protected by the Federal Confidentiality of Alcohol and Drug Abuse Patient Records regulations: The Federal rules restrict any use of the information to criminally investigate or prosecute any alcohol or drug abuse patient.[facility]In the event this information is protected by the Federal Confidentiality of Alcohol and Drug Abuse Patient Records regulations: The Federal rules restrict any use of the information to criminally investigate or prosecute any alcohol or drug abuse patient.[facility]In the event this information is protected by the Federal Confidentiality of Alcohol and Drug Abuse Patient Records regulations: The Federal rules restrict any use of the information to criminally investigate or prosecute any alcohol or drug abuse patient.[facility]In the event this information is protected by the Federal Confidentiality of Alcohol and Drug Abuse Patient Records regulations: The Federal rules restrict any use of the information to criminally investigate or prosecute any alcohol or drug abuse patient.[facility]In the event this information is protected by the Federal Confidentiality of Alcohol and Drug Abuse Patient Records regulations: The Federal rules restrict any use of the information to criminally investigate or prosecute any alcohol or drug abuse patient.[facility]In the event this information is protected by the Federal Confidentiality of Alcohol and Drug Abuse Patient Records regulations: The Federal rules restrict any use of the information to criminally investigate or prosecute any alcohol or drug abuse patient.[facility]In the event this information is protected by the Federal Confidentiality of Alcohol and Drug Abuse Patient Records regulations: The Federal rules restrict any use of the information to criminally investigate or prosecute any alcohol or drug abuse patient.[facility]In the event this information is protected by the Federal Confidentiality of Alcohol and Drug Abuse Patient Records regulations: The Federal rules restrict any use of the information to criminally investigate or prosecute any alcohol or drug abuse patient.[facility]In the event this information is protected by the Federal Confidentiality of Alcohol and Drug Abuse Patient Records regulations: The Federal rules restrict any use of the information to criminally investigate or prosecute any alcohol or drug abuse patient.[facility]In the event this information is protected by the Federal Confidentiality of Alcohol and Drug Abuse Patient Records regulations: The Federal rules restrict any use of the information to criminally investigate or prosecute any alcohol or drug abuse patient.[facility]In the event this information is protected by the Federal Confidentiality of Alcohol and Drug Abuse Patient Records regulations: The Federal rules restrict any use of the information to criminally investigate or prosecute any alcohol or drug abuse patient.[facility]In the event this information is protected by the Federal Confidentiality of Alcohol and Drug Abuse Patient Records regulations: The Federal rules restrict any use of the information to criminally investigate or prosecute any alcohol or drug abuse patient.[facility]In the event this information is protected by the Federal Confidentiality of Alcohol and Drug Abuse Patient Records regulations: The Federal rules restrict any use of the information to criminally investigate or prosecute any alcohol or drug abuse patient.[facility]In the event this information is protected by the Federal Confidentiality of Alcohol and Drug Abuse Patient Records regulations: The Federal rules restrict any use of the information to criminally investigate or prosecute any alcohol or drug abuse patient.[facility]In the event this information is protected by the Federal Confidentiality of Alcohol and Drug Abuse Patient Records regulations: The Federal rules restrict any use of the information to criminally investigate or prosecute any alcohol or drug abuse patient.[facility]In the event this information is protected by the Federal Confidentiality of Alcohol and Drug Abuse Patient Records regulations: The Federal rules restrict any use of the information to criminally investigate or prosecute any alcohol or drug abuse patient.[facility]In the event this information is protected by the Federal Confidentiality of Alcohol and Drug Abuse Patient Records regulations: The Federal rules restrict any use of the information to criminally investigate or prosecute any alcohol or drug abuse patient.[facility]In the event this information is protected by the Federal Confidentiality of Alcohol and Drug Abuse Patient Records regulations: The Federal rules restrict any use of the information to criminally investigate or prosecute any alcohol or drug abuse patient.[facility]In the event this information is protected by the Federal Confidentiality of Alcohol and Drug Abuse Patient Records regulations: The Federal rules restrict any use of the information to criminally investigate or prosecute any alcohol or drug abuse patient.[facility]In the event this information is protected by the Federal Confidentiality of Alcohol and Drug Abuse Patient Records regulations: The Federal rules restrict any use of the information to criminally investigate or prosecute any alcohol or drug abuse patient.[facility]In the event this information is protected by the Federal Confidentiality of Alcohol and Drug Abuse Patient Records regulations: The Federal rules restrict any use of the information to criminally investigate or prosecute any alcohol or drug abuse patient.[facility] SystemIn the event this information is protected by the Federal Confidentiality of Alcohol and Drug Abuse Patient Records regulations: The Federal rules restrict any use of the information to criminally investigate or prosecute any alcohol or drug abuse patient.[facility] SystemIn the event this information is protected by the Federal Confidentiality of Alcohol and Drug Abuse Patient Records regulations: The Federal rules restrict any use of the information to criminally investigate or prosecute any alcohol or drug abuse patient.[facility] SystemIn the event this information is protected by the Federal Confidentiality of Alcohol and Drug Abuse Patient Records regulations: The Federal rules restrict any use of the information to criminally investigate or prosecute any alcohol or drug abuse patient.[facility] SystemIn the event this information is protected by the Federal Confidentiality of Alcohol and Drug Abuse Patient Records regulations: The Federal rules restrict any use of the information to criminally investigate or prosecute any alcohol or drug abuse patient.[facility] SystemIn the event this information is protected by the Federal Confidentiality of Alcohol and Drug Abuse Patient Records regulations: The Federal rules restrict any use of the information to criminally investigate or prosecute any alcohol or drug abuse patient.[facility] SystemIn the event this information is protected by the Federal Confidentiality of Alcohol and Drug Abuse Patient Records regulations: The Federal rules restrict any use of the information to criminally investigate or prosecute any alcohol or drug abuse patient.[facility] SystemIn the event this information is protected by the Federal Confidentiality of Alcohol and Drug Abuse Patient Records regulations: The Federal rules restrict any use of the information to criminally investigate or prosecute any alcohol or drug abuse patient.[facility] SystemIn the event this information is protected by the Federal Confidentiality of Alcohol and Drug Abuse Patient Records regulations: The Federal rules restrict any use of the information to criminally investigate or prosecute any alcohol or drug abuse patient.[facility] SystemIn the event this information is protected by the Federal Confidentiality of Alcohol and Drug Abuse Patient Records regulations: The Federal rules restrict any use of the information to criminally investigate or prosecute any alcohol or drug abuse patient.[facility] SystemIn the event this information is protected by the Federal Confidentiality of Alcohol and Drug Abuse Patient Records regulations: The Federal rules restrict any use of the information to criminally investigate or prosecute any alcohol or drug abuse patient.[facility] SystemIn the event this information is protected by the Federal Confidentiality of Alcohol and Drug Abuse Patient Records regulations: The Federal rules restrict any use of the information to criminally investigate or prosecute any alcohol or drug abuse patient.[facility] SystemIn the event this information is protected by the Federal Confidentiality of Alcohol and Drug Abuse Patient Records regulations: The Federal rules restrict any use of the information to criminally investigate or prosecute any alcohol or drug abuse patient.[facility] SystemIn the event this information is protected by the Federal Confidentiality of Alcohol and Drug Abuse Patient Records regulations: The Federal rules restrict any use of the information to criminally investigate or prosecute any alcohol or drug abuse patient.[facility] SystemIn the event this information is protected by the Federal Confidentiality of Alcohol and Drug Abuse Patient Records regulations: The Federal rules restrict any use of the information to criminally investigate or prosecute any alcohol or drug abuse patient.[facility] SystemIn the event this information is protected by the Federal Confidentiality of Alcohol and Drug Abuse Patient Records regulations: The Federal rules restrict any use of the information to criminally investigate or prosecute any alcohol or drug abuse patient.[facility] SystemIn the event this information is protected by the Federal Confidentiality of Alcohol and Drug Abuse Patient Records regulations: The Federal rules restrict any use of the information to criminally investigate or prosecute any alcohol or drug abuse patient.[facility] SystemIn the event this information is protected by the Federal Confidentiality of Alcohol and Drug Abuse Patient Records regulations: The Federal rules restrict any use of the information to criminally investigate or prosecute any alcohol or drug abuse patient.[facility] SystemIn the event this information is protected by the Federal Confidentiality of Alcohol and Drug Abuse Patient Records regulations: The Federal rules restrict any use of the information to criminally investigate or prosecute any alcohol or drug abuse patient.[facility] SystemIn the event this information is protected by the Federal Confidentiality of Alcohol and Drug Abuse Patient Records regulations: The Federal rules restrict any use of the information to criminally investigate or prosecute any alcohol or drug abuse patient.[facility] SystemIn the event this information is protected by the Federal Confidentiality of Alcohol and Drug Abuse Patient Records regulations: The Federal rules restrict any use of the information to criminally investigate or prosecute any alcohol or drug abuse patient.[facility] SystemIn the event this information is protected by the Federal Confidentiality of Alcohol and Drug Abuse Patient Records regulations: The Federal rules restrict any use of the information to criminally investigate or prosecute any alcohol or drug abuse patient.[facility] SystemIn the event this information is protected by the Federal Confidentiality of Alcohol and Drug Abuse Patient Records regulations: The Federal rules restrict any use of the information to criminally investigate or prosecute any alcohol or drug abuse patient.[facility] SystemIn the event this information is protected by the Federal Confidentiality of Alcohol and Drug Abuse Patient Records regulations: The Federal rules restrict any use of the information to criminally investigate or prosecute any alcohol or drug abuse patient.[facility] Reason for Visit (unrecogniz ed section and content) ReasonCommentsRadiology NMSpecialtyDiagnoses / ProceduresReferred By Contact Referred To ContactCT IMAGING Diagnoses Other hydrocephalus (HCC) Procedures CT BRAIN WO IVCON CT HEAD/BRAIN W/O CONTRAST MATERIAL Marlene Cordero PA-C [address] [place] [id number] [place] [address] Referral IDStatusReasonStlake worth DateExpiration DateVisits RequestedVisits [id number] Auto-Generated Referral /[id number]s PatientSpecialtyDiagnoses / ProceduresReferred By ContactReferred To ContactNEUROLOGICAL BUDDHIST Diagnoses NPH (normal pressure hydrocephalus) (HCC) Procedures Shunt Follow Up Marlene Cordero PA-C [address] [place] [address] [address] [place] [address] Referral IDStatusJulissaRenfrew DateExpiration DateVisits RequestedVisits [id number] Review OON/Self Pay Override /[id number]eQznbaeVngkfvizApaszcx Outside Medical RecordsReasonCommentsNausea & VomitingSpecialtyDiagnoses / Procedures Referred By ContactReferred To ContactGastroenterology Diagnoses Nausea and vomiting, unspecified vomiting type Procedures CONSULT TO GASTROENTEROLOGY OFFICE/OUTPATIENT [facility] 60-74 MINUTES Peterson Gonsalez MD [address] [place] [address] Referral IDStatusReasonRenfrew DateExpiration DateVisits RequestedVisits [id number] PCP Requested Referral /[id number] OrdersReasonCommentsResultsReasonComments Follow UpCT SCAN 3-51-89Cwjirshydrp CancelledReasonCommentsResultsPatient Update ReasonCommentsOrdersReasonCommentsPatient UpdateReasonCommentsAppointment ConfirmationReasonCommentsFollow Up Phone CallAll clearReasonCommentsEstablished PatientSpecialtyDiagnoses / ProceduresReferred By ContactReferred To Contact Urology / UROLOGY Diagnoses Malignant neoplasm of bladder, unspecified CYSTOSCOPY (via her ileal conduit) and stent removal Procedures CYSTOSCOPY AND TREATMENT [place] [address] [place] [address] Peterson Gonsalez MD [address] [place] [address] Referral IDStatusReasonStart DateExpiration DateVisits RequestedVisits [id number]/5/202212/602513ErjklkKudxxjudSbapeuz Question ReasonCommentsSooner appointment requestReasonCommentsPost OpReasonComments ReasonCommentsFollow UpSpecialtyDiagnoses / ProceduresReferred By Contact Referred To ContactUROLOGY Diagnoses Bladder cancer (HCC) Procedures OFFICE VISIT, EST PT., LEVEL 2 [place] [address] [place] [address] [facility] [address] [place] [id number] Referral IDStatusReasonStart DateExpiration DateVisits RequestedVisits [id number] OON/Self Pay Override /[id number]p PatientShunt follow upSpecialty Diagnoses / ProceduresReferred By ContactReferred To ContactINFECTIOUS DISEASES Diagnoses Fungal meningitis Procedures [facility]OSPITAL OUTPT [facility]IN[facility] VISIT fungal meningitis Jamie Mccarty MD [address] [place] [id number] [place] [address] Referral IDStatusReasonStart DateExpiration DateVisits RequestedVisits [id number] OON/Self Pay Override /[id number] / ProceduresReferred By ContactReferred To ContactCT IMAGING Diagnoses Other hydrocephalus (HCC) Procedures CT BRAIN WO IVCON CT HEAD/BRAIN W/O CONTRAST MATERIAL Marlene Cordero PA-C [address] [place] [address] Ct Imaging Referral IDStatusReasonStart DateExpiration DateVisits RequestedVisits [id number] Auto-Generated Referral /[id number] / ProceduresReferred By ContactReferred To ContactCT IMAGING Diagnoses Colitis Procedures CT ABDOMEN W IVCON CT ABDOMEN W/CONTRAST Peterson Gonsalez MD [address] [place] [address] Ct Imaging Referral IDStatusReasonStart DateExpiration DateVisits RequestedVisits [id number] Auto-Generated Referral Clearance Not Met - Admin/Space Systems Operations Craftsman/Director Advise to Postpone/Reschedule or Not Proceed /[id number]a PatientFollow upReasonComments Follow UpReasonCommentsUrinary supply problemReasonCommentsAppointment Cancelled ReasonCommentsRefill RequestReasonCommentssuture removalReasonCommentsInsurance AuthorizationNoxafilReasonCommentsStoma ConsultReasonCommentsFollow UpPt states that she fell on Sunday. Pt states that she has noticed that balance has been off for about a week. No pain. 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) Procedures CT NEURO IMAGE IMPORT(LYNNETTE) DOWNLOAD POWERSHARE IMAGES TO Daniel Becerra MD [address] [facility] [place] [address] [facility] DIAGNOSTIC RADIOLOGY [address] [place] [address] [place] [address] Referral IDStatusReasonStart DateExpiration DateVisits RequestedVisits [id number]/13/20245/[id number]e PatientF/u shunt checkReasonCommentsGait ProblemReasonCommentsFollow UpReasonCommentsNew PatientMovement Disorders and DBSSpecialtyDiagnoses / ProceduresReferred By ContactReferred To ContactNeurology / CARDIOLOGY Diagnoses Other hydrocephalus (HCC) Procedures CONSULT TO NEUROLOGY OFFICE/OUTPATIENT [facility] 60 MINUTES Marlene Cordero PA-C [address] [place] [address] [facility] [address] [place] [id number] Referral IDStatusReasonStart DateExpiration DateVisits RequestedVisits [id number] PCP Requested Referral 999ReasonOnset DateCommentsHospital Fndfxjamn47/22/2024Reason CommentsPost OpReasonCommentsEstablished PatientCT follow upSpecialtyDiagnoses / ProceduresReferred By ContactReferred To Contact [address] [address] Referral IDStatusReasonStart DateExpiration DateVisits RequestedVisits [id number] Request/4ReasonCommentsInitial ConsultWound ConsultReasonCommentsPost OpSx :10/08/23Referral IDStatusReasonStart Date Expiration DateVisits RequestedVisits [id number] Auto-Generated Referral /[id number] EVALReasonCommentsNew PatientNEW NI MEDICAL - Other hydrocephalus (HCC) [G91.8]SpecialtyDiagnoses / Procedures Referred By ContactReferred To ContactNeurology / NEUROLOGICAL BUDDHIST Diagnoses Other hydrocephalus (HCC) Procedures CONSULT TO NEUROLOGY OFFICE/OUTPATIENT [facility] 60 MINUTES Marlene Cordero PA-C [address] [place] [address] Reggie Butler MD [address] [place] [address] Referral IDStatusReasonStart DateExpiration DateVisits RequestedVisits [id number] PCP Requested Referral /[id number] Gen RMPSpecialtyDiagnoses / Procedures Referred By ContactReferred To ContactXR IMAGING Diagnoses Closed nondisplaced transverse fracture of left patella, initial encounter Procedures XR KNEE LIMITED 2V AP/LAT LEFT RADIOLOGIC EXAMINATION KNEE 1/2 VIEWS Aashish Monge PA-C [address] [place] [address] [address] [place] [address] Referral IDStatusReasonStart DateExpiration DateVisits RequestedVisits [id number] Auto-Generated Referral /[id number] CTSpecialtyDiagnoses / Procedures Referred By ContactReferred To ContactCT IMAGING Diagnoses History of bladder cancer Procedures CT UROGRAM WO/W IVCON CT ABD & PELVIS W/O CONTRST 1+ BODY Peterson Zaldivar MD [address] [place] [address] [address] [place] [address] Referral IDStatusReasonStart DateExpiration DateVisits RequestedVisits [id number] Auto-Generated Referral /[id number] IDStatusReasonStart DateExpiration DateVisits RequestedVisits [id number] Auto-Generated Referral /[id number] CTSpecialtyDiagnoses / Procedures Referred By ContactReferred To ContactCT IMAGING Diagnoses Other hydrocephalus (HCC) Procedures CT BRAIN WO IVCON CT HEAD/BRAIN W/O CONTRAST MATERIAL Con Oconnor MD [address] [place] [address] [place] [address] Referral IDStatusReasonStart DateExpiration DateVisits RequestedVisits [id number] Auto-Generated Referral OON/Self Pay Override /[id number] NMSpecialtyDiagnoses / Procedures Referred By ContactReferred To ContactCT IMAGING Diagnoses History of bladder cancer Abdominal pain, unspecified abdominal location Procedures CT ABD/PEL W IVCON CT ABD & PELVIS W/CONTRAST Peterson Gonsalez MD [address] [place] [address] [address] [place] [address] Referral IDStatusReasonStart DateExpiration DateVisits RequestedVisits [id number] Auto-Generated Referral /[id number] IDStatusReasonStart DateExpiration DateVisits RequestedVisits [id number] Auto-Generated Referral /[id number] / ProceduresReferred By ContactReferred To ContactCT IMAGING Diagnoses Malignant neoplasm of urinary bladder, unspecified site (HCC) Procedures CT CHEST WO IVCON CAT SCAN OF CHEST Peterson Gonsalez MD [address] [place] [address] [address] [place] [address] Referral IDStatusReasonStlake worth DateExpiration DateVisits RequestedVisits [id number] Auto-Generated Referral /[id number] Dependent Diabetes MellitusReason CommentsBotox InjectionSpecialtyDiagnoses / ProceduresReferred By Contact Referred To ContactPhysical Medicine and Rehab / PHYSICAL MEDICINE AND REHAB Diagnoses Chronic incomplete spastic paraplegia (HCC) Spasm of muscle Procedures BOTULINUM TOXIN A PER 1 UNIT INITIAL J0585 - BOTULINUM TOXIN A 400 UNITS EVERY 90 DAYS x 1 YEAR FOR SPASTICITY 93250 - CHEMODENERV 1 EXTREMITY 1-4 53125 - CHEMODENERV ADDL EXTREM 1-4 Noel Thompson MD [address] [place] [address] Noel Daniels MD [address] [place] [address] Referral IDStatusReasonRenfrew DateExpiration DateVisits RequestedVisits [id number] Patient Cleared - Admin/Space Systems Operations Craftsman/Director advise to proceed or did not respond [id number]Mrodmt injections.Specialty Diagnoses / ProceduresReferred By ContactReferred To ContactPhysical Medicine and Rehab / PHYSICAL MEDICINE AND REHAB Diagnoses PHENOL Procedures INJECTION PHENOL Self Noel Daniels MD [address] [place] [address] Referral IDStatusasonRenfrew DateExpiration DateVisits RequestedVisits [id number]/27/202412/26/701487NfceatUymelqxtCtpnfbglpve Patient Follow UpReasonCommentsEstablished PatientReasonCommentsAbdominal painPt states abd pain for the past day, sent here from [place] for bowel obstruction, hx of bladder cancer and has nephrostomy tubesSpecialtyDiagnoses / ProceduresReferred By ContactReferred To ContactEmergency Medicine Diagnoses Unspecified intestinal obstruction, unspecified as to partial versus complete obstruction (HCC) closed loop bowel obstruction Procedures NO [facility] [place] [address] Phone: [phone] [facility] [place] [address] Phone: [phone] Referral IDStatusReasonRenfrew DateExpiration DateVisits RequestedVisits [id number] follow-upAbdominal surgeryReason CommentsNew Patient EvaluationNew PatientConsultPt c/o muscle spasms to both legs. Per patient they are very intense.FallPer patient she came off the edge of the bed in the morning. No injury.SpecialtyDiagnoses / ProceduresReferred By ContactReferred To ContactNeurology Diagnoses Spasticity Procedures CONSULT TO NEUROLOGY OFFICE/OUTPATIENT [facility] 60 MINUTES Marlene Cordero PA-C [address] [place] [id number] [place] [address] Referral IDStatus[facility] DateExpiration DateVisits RequestedVisits [id number] PCP Requested Referral [id number] UpReasonCommentsRequest to be scheduled for next Botox injection.ReasonCommentsEstablished PatientOther hydrocephalusReferral IDStatusReasonStart DateExpiration DateVisits Requested Visits [id number] Auto-Generated Referral /[id number] UpReasonCommentsNerve BlockSpecialty Diagnoses / ProceduresReferred By ContactReferred To ContactCT IMAGING Diagnoses Other hydrocephalus (HCC) Procedures CT BRAIN WO IVCON CT HEAD/BRAIN W/O CONTRAST MATERIAL Marlene Cordero PA-C [address] [place] [address] Phone: tel: fax: [facility] [place] [address] Ref[facility] DateExpiration DateVisits RequestedVisits [id number] Auto-Generated Referral [id number] / ProceduresReferred By ContactReferred To ContactPhysical Medicine and Rehab / PHYSICAL MEDICINE AND REHAB Diagnoses Chronic incomplete spastic paraplegia (HCC) Spasm of muscle Procedures BOTULINUM TOXIN A PER 1 UNIT RENEWAL - new insurance J0585 - BOTULINUM TOXIN A 400 UNITS EVERY 90 DAYS x 1 YEAR FOR SPASTICITY 58899 - CHEMODENERV 1 EXTREMITY 1-4 82025 - CHEMODENERV ADDL EXTREM 1-4 Noel Thompson MD [address] [place] [address] Phone: tel: fax: Noel Daniels MD [address] [place] [address] Phone: tel: fax: Referral IDStatusReasonStart DateExpiration DateVisits RequestedVisits [id number]/12/202512/31/22111155Mpxlaxhx IDStatusReasonStart DateExpiration DateVisits RequestedVisits [id number] Auto-Generated Referral [id number] UpdateEdwardsReasonOnset DateComments 08/22/2024ReasonCommentsAppointmentPatient still in the hospital, scheduled Hip Fracture Liaison Consult Appointment with on 10/09 at 12:00PM. Sent My chart message and mailed out reminderReasonCommentsRadiology CTSpecialty Diagnoses / ProceduresReferred By ContactReferred To ContactCT IMAGING Diagnoses History of bladder cancer Procedures CT UROGRAM WO/W IVCON CT ABD & PELVIS W/WO CONTRST 1+ BODY Molly Bradley APRN.STABLE HELPER [address] [place] [address] Phone: tel: fax: [place] [facility] [place] [address] Referral IDStatusReasonStart DateExpiration DateVisits RequestedVisits [id number] Auto-Generated Referral [id number]y PatientCT Follow upReasonComments New PatientSpecialtyDiagnoses / ProceduresReferred By ContactReferred To Contact SPINE Diagnoses Cervical stenosis of spinal canal Procedures CONSULT TO SPINE SURGERY OFFICE/OUTPATIENT [facility] 60 MINUTES Marlene Cordero PA-C [address] [place] [address] Phone: tel: fax: [facility] [place] [address] [place] [address] Phone: tel: Referral IDStatusReasonStart DateExpiration DateVisits RequestedVisits [id number] PCP Requested Referral [id number] CommunicationPatient Question ReasonCommentsMedication AuthorizationCresembaReasonCommentsCataract Evaluation Care Teams (unrecognized sec tion and content) Team Status: Active Member Role Status Dates Juliette Berumen DO Primary Care Provider Active Team Status: Inactive Member Role Status Dates Juliette Berumen DO Primary Care Provider Active Start: November 19, 2024 End: November 19enarnaldo Berumen , DOAttending ProviderActiveStart: November 19, 2024 End: November 19, 2024 Team Status: Inactive Member Role Status Dates Juliette Berumen DO Primary Care Provider Active Start: December 26, 2024 End: December 26enarnaldo Berumen , DOAttending ProviderActiveStart: December 26, 2024 End: December 26, 2024 Team Status: Inactive Member Role Status Dates Juliette Berumen DO Primary Care Provider Active Start: December 31, 2024 End: December 31, 2024Rashid Lyn ProviderActiveStart: December 31, 2024 End: December 31, 2024 Team Status: Active Member Role Status Dates Juliette Berumen DO Primary Care Provider Active Start: August 22, 2024 Maurilio Huynh , DOAttending ProviderActiveStart: August 22, 2024 Team Status: Active Member Role Status Dates Juliette Berumen DO Primary Care Provider Active Start: August 23, 2024 Outside ProviderAttending ProviderActiveStart: August 23, 2024 Team Status: Active Member Role Status Dates Juliette Berumen DO Primary Care Provider Active Start: August 24, 2024 Outside ProviderAttending ProviderActiveStart: August 24, 2024 Team Status: Active Member Role Status Dates Juliette Berumen DO Primary Care Provider Active Start: August 25, 2024 Outside ProviderAttending ProviderActiveStart: August 25, 2024 Team Status: Active Member Role Status Dates Juliette Berumen DO Primary Care Provider Active Start: August 26, 2024 Outside ProviderAttending ProviderActiveStart: August 26, 2024 Team Status: Active Member Role Status Dates Juliette Berumen DO Primary Care Provider Active Start: August 27, 2024 Veronica Rodriguez , MDAttending ProviderActiveStart: August 27, 2024 Team Status: Active Member Role Status Dates Juliette Berumen DO Primary Care Provider Active Start: August 28, 2024 Outside ProviderAttending ProviderActiveStart: August 28, 2024 Team Status: Active Member Role Status Dates Juliette Berumen DO Primary Care Provider Active Start: October 02, 2024 Molly E Madhavi , BOARD MIXER TENDER-CAttending ProviderActiveStart: October 02, 2024 Team Status: Inactive Member Role Status Dates Juliette Berumen DO Primary Care Provide r, Attending Provider Active Start: May 22, 2024 End: May 22, 2024 Team Status: Inactive Member Role Status Dates Juliette Berumen DO Primary Care Provide r, Attending Provider Active Start: May 27, 2024 End: May 27, 2024 Team Status: Inactive Member Role Status Dates Juliette Berumen DO Primary Care Provider Active Start: June 10, 2024 End: June 10, 2024Arabella Devi ProviderActiveStart: June 10, 2024 End: June 10, 2024 Team Status: Inactive Member Role Status Joshua Berumen DO Primary Care Provide r, Attending Provider Active Start: June 20, 2024 End: June 20, 2024 Team Status: Active Member Role Status Joshua Berumen DO Primary Care Provider Active Start: July 02, 2024 Jamie Aiken ProviderActiveStart: July 02, 2024 Team Status: Inactive Member Role Status Joshua Berumen DO Primary Care Provider Active Start: July 03, 2024 End: July 03, 2024Arabella Devi ProviderActiveStart: July 03, 2024 End: July 03, 2024 Team Status: Active Member Role Status Joshua Berumen DO Primary Care Provider Active Start: July 28, 2024 Arabella Darden ProviderActiveStart: July 28, 2024 Team Status: Inactive Member Role Status Dates Vladimir Rios MD Attending Provider Active Start : July 28, 2024 End: July 28, 2024 Team Status: Active Member Role Status Dates Merlene Turcios CMA Attending Provider Active Start: July 29, 2024 Team Status: Active Member Role Status Dates Juliette Berumen DO Primary Care Provider Active Start: July 31, 2024 Rashid Lyn ProviderActiveStart: July 31, 2024 Team Status: Inactive Member Role Status Dates Juliette Berumen DO Primary Care Provide r, Attending Provider Active Start: August 05, 2024 End: August 05, 2024 Team Status: Active Member Role Status Dates Juliette Berumen DO Primary Care Provider Active Start: March 05, 2024 Ese Frost ProviderActiveStart: March 05, 2024 Team Status: Active Member Role Status Dates Juliette Berumen DO Primary Care Provide r, Attending Provider Active Start: March 18, 2024 Team Status: Active Member Role Status Dates Juliette Berumen DO Primary Care Provider Active Start: April 10, 2024 Jamie Nelli ProviderActiveStart: April 10, 2024 Team Status: Inactive Member Role Status Dates Juliette Berumen DO Primary Care Provide r, Attending Provider Active Start: April 29, 2024 End: April 29, 2024 Team Status: Active Member Role Status Dates Juliette Berumen DO Primary Care Provider Active Start: May 20, 2024 Rashid Lyn ProviderActiveStart: May 20, 2024 Team Status: Inactive Member Role Status Dates Juliette Berumen DO Primary Care Provide r, Attending Provider Active Start: February 25, 2024 End: February 25, 2024 Team Status: Active Member Role Status Dates Juliette Berumen DO Primary Care Provide r, Attending Provider Active Start: February 25, 2024 Team Status: Active Member Role Status Dates Juliette Berumen DO Primary Care Provider Active Start: December 21, 2023 Jamie Nelli ProviderActiveStart: December 21, 2023 Team Status: Active Member Role Status Dates Juliette Berumen DO Primary Care Provider Active Start: February 07, 2024 Kalli Simons MDAttending ProviderActiveStart: February 07, 2024 Team Status: Active Member Role Status Dates Juliette Berumen DO Primary Care Provider Active Start: February 08, 2024 Kalli Simons MDAttending ProviderActiveStart: February 08, 2024 Team Status: Active Member Role Status Dates Juliette Berumen DO Primary Care Provider Active Start: February 15, 2024 Merlene Turcios CMAAttelena ProviderActiveStart: February 15, 2024 Team Status: Inactive Member Role Status Dates Juliette Berumen DO Primary Care Provide r, Attending Provider Active Start: July 17, 2023 End: July 17, 2023 Team Status: Inactive Member Role Status Dates Juliette Berumen DO Primary Care Provider Active Start: August 01, 2023 End: August 01, 2023Shelbi Lopez APRN NP-CAttending ProviderActive Start: August 01, 2023 End: August 01, 2023 Team Status: Active Member Role Status Dates Juliette Berumen DO Primary Care Provide r, Attending Provider Active Start: August 23, 2023 Team Status: Inactive Member Role Status Dates Juliette Berumen DO Primary Care Provide r, Attending Provider Active Start: September 25, 2023 End: September 25, 2023 Team Status: Active Member Role Status Dates Juliette Berumen DO Primary Care Provider Active Start: June 24, 2023 Kalli Simons MDAttelena ProviderActiveStart: June 24, 2023 Team Status: Inactive Member Role Status Dates Juliette Berumen DO Primary Care Provider Active Marjorie Headley APRNAtambika ProviderActiveTeam MemberRelationshipSpecialtyStart DateEnd Date Kalli Simons MD [address] [place] [facility] [address] PCP - GeneralFamily Dddjpgvf98/28/21Team MemberRelationshipSpecialtyStart Date End Date Kalli Simons MD [address] [place] [facility] [place] [address] PCP - GeneralFamily Lunpqxky62/28/21Team MemberRelationshipSpecialtyStart Date End Date Kalli Simons MD [address] [place] [place] [address] PCP - GeneralFamily Ohncuraq02/28/21Team MemberRelationshipSpecialtyStart Date End Date Kalli Simons MD [address] [place] [place] [address] PCP - GeneralFamily Cklvbpgl48/28/21Team MemberRelationshipSpecialtyStart Date End Date Kalli Simons MD [address] [place] [place] [address] PCP - GeneralFamily Ndkzfdjy70/28/21Team MemberRelationshipSpecialtyStart Date End Date Kalli Simons MD [address] [place] [place] [address] PCP - GeneralFamily Fauqorop94/28/21Team MemberRelationshipSpecialtyStart Date End Date Kalli Simons MD [address] [place] [place] [address] PCP - GeneralFamily Iuypbats27/28/21Team MemberRelationshipSpecialtyStart Date End Date Kalli Simons MD [address] [place] [place] [address] PCP - GeneralFamily Aszaczdc51/28/21Team MemberRelationshipSpecialtyStart Date End Date Kalli Simons MD [address] [place] [place] [address] PCP - GeneralFamily Ivlzbqcv99/28/21Team MemberRelationshipSpecialtyStart Date End Date Kalli Simons MD [address] [place] [place] [address] PCP - GeneralFamily Mkhhwrvx89/28/21Team MemberRelationshipSpecialtyStart Date End Date Kalli Simons MD [address] [place] [facility] [place] [address] PCP - GeneralFamily Gayozoiz39/28/21 Team Status: Inactive Member Role Status Dates Juliette Berumen , Primary Care Provider Active Raul Montez MDEmergency ProviderActiveRuta Mac , MDAdmit Provider, Attending ProviderActiveTeam MemberRelationshipSpecialtyStart DateEnd Date Kalli Simons MD [address] [place] [place] [address] PCP - GeneralFamily Gfemxkny59/28/21Team MemberRelationshipSpecialtyStart Date End Date Kalli Simons MD [address] [place] [place] [address] PCP - GeneralFamily Ueosvvyu71/28/21Team MemberRelationshipSpecialtyStart Date End Date Kalli Simons MD [address] [place] [place] [address] PCP - GeneralFamily Chvqqmuw61/28/21Team MemberRelationshipSpecialtyStart Date End Date Kalli Simons MD [address] [place] [place] [address] PCP - GeneralFamily Suonlacf53/28/21Team MemberRelationshipSpecialtyStart Date End Date Kalli Simons MD [address] [place] [place] [address] PCP - GeneralFamily Sknkmhwu99/28/21Team MemberRelationshipSpecialtyStart Date End Date Kalli Simons MD [address] [place] [place] [address] PCP - GeneralFamily Chfjeruw85/28/21Team MemberRelationshipSpecialtyStart Date End Date Kalli Simons MD [address] [place] [place] [address] PCP - GeneralFamily Ibfyzzen21/28/21Team MemberRelationshipSpecialtyStart Date End Date Kalli Simons MD [address] [place] [place] [place] [address] PCP - GeneralFamily Yerdutzh65/28/21Team MemberRelationshipSpecialtyStart Date End Date Kalli Simons MD [address] [place] [place] [address] PCP - GeneralFamily Adjclyqj64/28/21Team MemberRelationshipSpecialtyStart Date End Date Kalli Simons MD [address] [place] [place] [address] PCP - GeneralFamily Dqsqrwxa47/28/21Team MemberRelationshipSpecialtyStart Date End Date Kalli Simons MD [address] [place] [place] [address] PCP - GeneralFamily Pngsowic60/28/21Team MemberRelationshipSpecialtyStart Date End Date Kalli Simons MD [address] [place] [place] [address] PCP - GeneralFamily Kmywutlq24/28/21 [employer]06/17/22Team MemberRelationshipSpecialtyStart DateEnd Date Kalli Simons MD [address] [place] [facility] [place] [address] PCP - GeneralFamily Lfltinuy44/28/21 [employer]06/17/22Team MemberRelationshipSpecialtyStart DateEnd Date Kalli Simons MD [address] [place] [facility] [place] [address] PCP - GeneralFamily Gohduqac91/28/21 [employer]06/17/22Team MemberRelationshipSpecialtyStart DateEnd Date Kalli Simons MD [address] [place] [place] [address] PCP - GeneralFamily Mwzrzqmg61/28/21 [employer]06/17/22Team MemberRelationshipSpecialtyStart DateEnd Kalli Simons MD [address] [place] [place] [address] PCP - GeneralFamily Ixlmgbfj07/28/21 [employer]06/17/22Team MemberRelationshipSpecialtyStart DateEnd Date Kalli Simons MD [address] [place] [place] [place] [address] PCP - GeneralFamily Pjdfdxiy94/28/21 [employer]06/17/22Team MemberRelationshipSpecialtyStart DateEnd Date Kalli Simons MD [address] [place] [place] [address] PCP - GeneralFamily Bqimxqbb55/28/21 [employer]06/17/22 Team Status: Inactive Member Role Status Joshua Berumen DO Primary Care Provider, Attending Tasha roman Active Team MemberRelationshipSpecialtyStart DateEnd Kalli Simons MD [address] [place] [place] [address] PCP - GeneralFamily Bygksvyb58/28/21 [employer]06/17/22Team MemberRelationshipSpecialtyStart DateEnd Date Kalli Simons MD [address] [place] [place] [address] PCP - GeneralFamily Uikbymqq58/28/21 [employer]06/17/22Team MemberRelationshipSpecialtyStart DateEnd Date Kalli Simons MD [address] [facility] [place] [address] PCP - GeneralFamily Fczjrbtp95/28/21Team MemberRelationshipSpecialtyStart Date End Date Kalli Simons MD [address] [facility] [place] [address] PCP - GeneralFamily Zaeduyql31/28/21 [employer]06/17/22Team MemberRelationshipSpecialtyStart DateEnd Date Kalli Simons MD [address] [place] [place] [address] PCP - GeneralFamily Ecezyujv48/28/21 [employer]06/17/22Team MemberRelationshipSpecialtyStart DateEnd Date Kalli Simons MD [address] [place] [place] [address] PCP - GeneralFamily Jdhbkpmg72/28/21 [employer]06/17/22Team MemberRelationshipSpecialtyStart DateEnd Date Kalli Simons MD [address] [facility] [place] [address] PCP - GeneralFamily Abxoztxp32/28/21 [employer]06/17/22Team MemberRelationshipSpecialtyStart DateEnd Date Kalli Simons MD [address] [facility] [place] [address] PCP - GeneralFamily Pcdkqryf21/28/21 [employer]06/17/22Team MemberRelationshipSpecialtyStart DateEnd Date Kalli Simons MD [address] [place] [facility] [place] [address] PCP - GeneralFamily Czhndhfw56/28/21 [employer]06/17/22Team MemberRelationshipSpecialtyStart DateEnd Date Kalli Simons MD [address] [place] [place] [place] [address] PCP - GeneralFamily Qylaqpin62/28/21 [employer]06/17/22Te MemberRelationshipSpecialtyStart DateEnd Date Kalli Simons MD [address] [place] [place] [place] [address] PCP - GeneralFamily Gvdnkime72/28/21 [employer]06/17/22Te MemberRelationshipSpecialtyStart DateEnd Date Kalli Simons MD [address] [place] [place] [place] [address] PCP - GeneralFamily Lewjnmcw44/28/21 [employer]06/17/22Team MemberRelationshipSpecialtyStart DateEnd Date Kalli Simons MD [address] [place] [place] [address] PCP - GeneralFamily Ncennhju88/28/21 [employer]06/17/22 Team Status: Inactive Member Role Status Dates Juliette Berumen DO Attending Provider Active Sta rt: April 25, 2023 End: April 25, 2023Team MemberRelationshipSpecialtyStart DateEnd Date Kalli Simons MD [address] [place] [place] [place] [address] PCP - GeneralFamily Zsxhojuo06/28/21 [employer]06/17/22Team MemberRelationshipSpecialtyStart DateEnd Date Kalli Simons MD [address] [place] [place] [address] PCP - GeneralFamily Zaikyubn10/28/21 [employer]06/17/22Team MemberRelationshipSpecialtyStart DateEnd Date Kalli Simons MD [address] [place] [place] [address] PCP - GeneralFamily Glejskhf79/28/21 [employer]06/17/22Team MemberRelationshipSpecialtyStart DateEnd Date Kalli Simons MD [address] [place] [place] [address] PCP - GeneralFamily Hkvttpxf23/28/21 [employer]06/17/22Team MemberRelationshipSpecialtyStart DateEnd Date Arlene Chambers MD [address] [place] [address] PhysicianUrology08/18/23 Daniel Figueroa MD [address] [place] [address] [place] [address] PhysicianNeurosurgery08/18/23Team MemberRelationshipSpecialtyStart End Arlene Chambers MD [address] [place] [address] PhysicianUrology08/18/23 Daniel Figueroa MD [address] [place] [address] [place] [address] PhysicianNeurosurgery08/18/23Team MemberRelationshipSpecialtyStart End Arlene Chambers MD [address] [place] [address] PhysicianUrology08/18/23 Daniel Figueroa MD [address] [place] [address] [place] [address] PhysicianNeurosurgery08/18/23Team MemberRelationshipSpecialtyStart End Arlene Chambers MD [address] [place] [address] PhysicianUrology08/18/23 Daniel Figueroa MD [address] [place] [address] [place] [address] PhysicianNeurosurgery08/18/23Team MemberRelationshipSpecialtyStart DateEnd Date Arlene Chambers MD [address] [place] [address] PhysicianUrology08/18/23 Daniel Figueroa MD [address] [facility] [place] [address] PhysicianNeurosurgery08/18/23Team MemberRelationshipSpecialtyStart DateEnd Date Arlene Chambers MD [address] [place] [address] PhysicianUrology08/18/23 Daniel Figueroa MD [address] [place] [address] PhysicianNeurosurgery08/18/23Team MemberRelationshipSpecialtyStart DateEnd Date Kalli Simons MD [address] [place] [address] PCP - GeneralFamily Thcyuxcv23/28/21 [employer]06/17/22 MemberRelationshipSpecialtyStart DateEnd Date Kalli Simons MD [address] [place] [address] PCP - GeneralFamily Nbvgttdw03/28/21 [employer]06/17/22Team MemberRelationshipSpecialtyStart DateEnd Date Kalli Simons MD [address] [place] [address] PCP - GeneralFamily Uvqpcowk04/28/21 [employer]06/17/22Te MemberRelationshipSpecialtyStart DateEnd Kalli Simons MD [address] [place] [place] [address] PCP - GeneralFamily Fcbhxpcu67/28/21 [employer]06/17/22Team MemberRelationshipSpecialtyStart DateEnd Date Kalli Simons MD [address] [place] [place] [address] PCP - GeneralFamily Fmrrflvv70/28/21 [employer]06/17/22Te MemberRelationshipSpecialtyStart DateEnd Date Kalli Simons MD [address] [place] [facility] [place] [address] PCP - GeneralFamily Gokxqnhi94/28/21 [employer]06/17/22Te MemberRelationshipSpecialtyStart DateEnd Date Kalli Simons MD [address] [place] [place] [address] PCP - GeneralFamily Bdsfgjov43/28/21 [employer]06/17/22Te MemberRelationshipSpecialtyStart DateEnd Date Kalli Simons MD [address] [place] [facility] [place] [address] PCP - GeneralFamily Aztxttwy70/28/21 [employer]06/17/22Te MemberRelationshipSpecialtyStart DateEnd Date Kalli Simons MD [address] [facility] [place] [address] PCP - GeneralFamily Hwgneeeu03/28/21 [employer]06/17/22Team MemberRelationshipSpecialtyStart DateEnd Date Kalli Simons MD [address] [place] [place] [address] PCP - GeneralFamily Ymygabbe86/28/21 [employer]06/17/22Te MemberRelationshipSpecialtyStart DateEnd Date Kalli Simons MD [address] [place] [place] [address] PCP - GeneralFamily Gsojrzsb40/28/21 [employer]06/17/22Team MemberRelationshipSpecialtyStart DateEnd Date Kalli Simons MD [address] [place] [place] [place] [address] PCP - GeneralFamily Orxugaal32/28/21 [employer]06/17/22Team MemberRelationshipSpecialtyStart DateEnd Date Kalli Simons MD [address] [place] [place] [place] [address] PCP - GeneralFamily Vsokvzld82/28/21 [employer]06/17/22Te MemberRelationshipSpecialtyStart DateEnd Date Kalli Simons MD [address] [place] [place] [address] PCP - GeneralFamily Wbxgkrot90/28/21 [employer]06/17/22Team MemberRelationshipSpecialtyStart DateEnd Date Kalli Simons MD [address] [place] [place] [address] PCP - GeneralFamily Vsejishv79/28/21 [employer]06/17/22Te MemberRelationshipSpecialtyStart DateEnd Date Kalli Simons MD [address] [place] [place] [place] [address] PCP - GeneralFamily Cluyihff54/28/21 [employer]06/17/22Te MemberRelationshipSpecialtyStart DateEnd Date Kalli Simons MD [address] [place] [place] [address] PCP - GeneralFamily Sionsemh13/28/21 [employer]06/17/22Team MemberRelationshipSpecialtyStart DateEnd Date Kalli Simons MD [address] [place] [place] [address] PCP - GeneralFamily Ocmsaugl20/28/21 [employer]3/4/23Team MemberRelationshipSpecialtyStart DateEnd Date Kalli Simons MD [address] [facility] [place] [address] PCP - GeneralFamily Cwbkzvbo95/28/21 [employer]06/17/22 MemberRelationshipSpecialtyStart DateEnd Date Kalli Simons MD [address] [facility] [place] [address] PCP - GeneralFamily Yoxnqpvk55/28/21 [employer]06/17/22 MemberRelationshipSpecialtyStart DateEnd Date Kalli Simons MD [address] [facility] [place] [address] PCP - GeneralFamily Dtcljfvl57/28/21 [employer]06/17/22 MemberRelationshipSpecialtyStart DateEnd Date Kalli Simons MD [address] [place] [place] [address] PCP - GeneralFamily Ojvzcznh17/28/21 [employer]06/17/22Te MemberRelationshipSpecialtyStart DateEnd Date Kalli Simons MD [address] [facility] [place] [address] PCP - GeneralFamily Rufwdawf93/28/21 [employer]3/4/23Team MemberRelationshipSpecialtyStart DateEnd Date Kalli Simons MD [address] [place] [place] [place] [address] PCP - GeneralFamily Wfjkcmpi88/28/21 [employer]06/17/22 MemberRelationshipSpecialtyStart DateEnd Date Kalli Simons MD [address] [place] [place] [address] PCP - GeneralFamily Txbrezjk50/28/21 [employer]06/17/22 MemberRelationshipSpecialtyStart DateEnd Date Kalli Simons MD [address] [place] [place] [address] PCP - GeneralFamily Fgsjybea83/28/21 [employer]06/17/22 MemberRelationshipSpecialtyStart DateEnd Date Kalli Simons MD [address] [place] [place] [address] PCP - GeneralFamily Jowedcgg11/28/21 [employer]06/17/22Te MemberRelationshipSpecialtyStart DateEnd Date Kalli Simons MD [address] [place] [place] [address] PCP - GeneralFamily Ifkgyckl72/28/21 [employer]06/17/22Team MemberRelationshipSpecialtyStart DateEnd Date Kalli Simons MD [address] [place] [place] [address] PCP - GeneralFamily Hvhlnjxv92/28/21 [employer]06/17/22Te MemberRelationshipSpecialtyStart DateEnd Date Kalli Simons MD [address] [place] [place] [address] PCP - GeneralFamily Xfzyqors01/28/21 [employer]06/17/22Te MemberRelationshipSpecialtyStart DateEnd Date Kalli Simons MD [address] [place] [place] [address] PCP - GeneralFamily Vdcvteub20/28/21 [employer]06/17/22Te MemberRelationshipSpecialtyStart DateEnd Date Kalli Simons MD [address] [place] [address] PCP - GeneralFamily Avhqwcsw06/28/21 [employer]06/17/22Te MemberRelationshipSpecialtyStart DateEnd Date Kalli Simons MD [address] [place] [place] [address] PCP - GeneralFamily Hqvppbfa07/28/21 [employer]06/17/22Team MemberRelationshipSpecialtyStart DateEnd Date Kalli Simons MD [address] [place] [place] [address] PCP - GeneralFamily Hbzlobpw83/28/21 [employer]06/17/22Team MemberRelationshipSpecialtyStart DateEnd Date Kalli Simons MD [address] [place] [place] [address] PCP - GeneralFamily Weyqkvaj59/28/21 [employer]06/17/22Te MemberRelationshipSpecialtyStart DateEnd Date Kalli Simons MD [address] [place] [place] [address] PCP - GeneralFamily Mmlnushb41/28/21 [employer]06/17/22Te MemberRelationshipSpecialtyStart DateEnd Date Kalli Simons MD [address] [place] [address] PCP - GeneralFamily Woknbhfe19/28/21 [employer]06/17/22Team MemberRelationshipSpecialtyStart DateEnd Date Kalli Simons MD [address] [place] [place] [place] [address] PCP - GeneralFamily Swtkyuao90/28/21 [employer]06/17/22Team MemberRelationshipSpecialtyStart DateEnd Date Kalli Simons MD [address] [facility] [place] [address] PCP - GeneralFamily Udjokera47/28/21 [employer]06/17/22Team MemberRelationshipSpecialtyStart DateEnd Date Kalli Simons MD [address] [place] [place] [address] PCP - GeneralFamily Qsmdsbiq74/28/21 [employer]06/17/22Team MemberRelationshipSpecialtyStart DateEnd Date Kalli Simons MD [address] [place] [address] PCP - GeneralFamily Jkaqsnbg54/28/21 [employer]06/17/22Team MemberRelationshipSpecialtyStart DateEnd Date Kalli Simons MD [address] [place] [place] [address] PCP - GeneralFamily Ijcwsdkh69/28/21 [employer]06/17/22Team MemberRelationshipSpecialtyStart DateEnd Date Kalli Simons MD [address] [place] [place] [address] PCP - GeneralFamily Xbeekglm37/28/21 [employer]06/17/22Team MemberRelationshipSpecialtyStart DateEnd Date Kalli Simons MD [address] [place] [place] [address] PCP - GeneralFamily Zitlaret36/28/21 [employer]06/17/22Te MemberRelationshipSpecialtyStart DateEnd Date Kalli Simons MD [address] [place] [place] [address] PCP - GeneralFamily Qxmsdjsd88/28/21 [employer]06/17/22Team MemberRelationshipSpecialtyStart DateEnd Date Kalli Simons MD [address] [place] [place] [address] PCP - GeneralFamily Wprkplhf48/28/21 [employer]06/17/22Te MemberRelationshipSpecialtyStart DateEnd Date Kalli Simons MD [address] [facility] [place] [phone] PCP - GeneralFamily Vnruwrrq44/28/21 [employer]/17/22Team MemberRelationshipSpecialtyStart DateEnd Date Kalli Simons MD [address] [place] [facility] [place] [address] PCP - GeneralFamily Adoqiqiu57/28/21 [employer]/17/22Team MemberRelationshipSpecialtyStart DateEnd Date Kalli Simons MD [address] [place] [facility] [place] [address] PCP - GeneralFamily Sjojmucl29/28/21 [employer]/17/22Team MemberRelationshipSpecialtyStart DateEnd Date Kalli Simons MD [address] [place] [facility] [place] [address] PCP - GeneralFamily Nyfyhgyd67/28/21 [employer]/17/22Team MemberRelationshipSpecialtyStart DateEnd Date Kalli Simons MD [address] [place] [facility] [place] [address] PCP - GeneralFamily Bdcdilja78/28/21Team MemberRelationshipSpecialtyStart Date End Date Kalli Simons MD [address] [place] [address] PCP - GeneralFamily Igtripce46/28/21 [employer]/17/22Team MemberRelationshipSpecialtyStart DateEnd Date Kalli Simons MD [address] [place] [address] PCP - GeneralFamily Fhqlmcjc38/28/21Team MemberRelationshipSpecialtyStart Date End Date Kalli Simons MD [address] [place] [place] [address] PCP - GeneralFamily Fthxeari41/28/21 [employer]/17/22Team MemberRelationshipSpecialtyStart DateEnd Date Kalli Simons MD [address] [place] [place] [address] PCP - GeneralFamily Vmaixreo55/28/21 [employer]/17/22Team MemberRelationshipSpecialtyStart DateEnd Date Kalli Simons MD [address] [place] [facility] [place] [address] PCP - GeneralFamily Wowoxetp79/28/21 [employer]06/17/22Team MemberRelationshipSpecialtyStart DateEnd Date Kalli Simons MD [address] [place] [address] PCP - GeneralFamily Gzlssmva95/28/21 [employer]06/17/22Te MemberRelationshipSpecialtyStart DateEnd Date Kalli Simons MD [address] [place] [address] PCP - GeneralFamily Kuygwhhd78/28/21 [employer]/17/22Team MemberRelationshipSpecialtyStart DateEnd Date Kalli Simons MD [address] [place] [address] PCP - GeneralFamily Cyekplsr65/28/21 [employer]06/17/22Team MemberRelationshipSpecialtyStart DateEnd Date Kalli Simons MD [address] [facility] [place] [address] PCP - GeneralFamily Ymzkrpws49/28/21 [employer]06/17/22Te MemberRelationshipSpecialtyStart DateEnd Date Kalli Simons MD [address] [facility] [place] [address] PCP - GeneralFamily Uuyfucfp94/28/21 [employer]/17/22Te MemberRelationshipSpecialtyStart DateEnd Date Kalli Simons MD [address] [place] [facility] [place] [address] PCP - GeneralFamily Vozcdweo20/28/21 [employer]06/17/22Te MemberRelationshipSpecialtyStart DateEnd Date Kalli Simons MD [address] [place] [address] PCP - GeneralFamily Rerueeuu12/28/21 [employer]06/17/22Te MemberRelationshipSpecialtyStart DateEnd Date Kalli Simons MD [address] [place] [address] PCP - GeneralFamily Rikvpmxq29/28/21 [employer]/17/22Team MemberRelationshipSpecialtyStart DateEnd Date Kalli Simons MD [address] [place] [address] PCP - GeneralFamily Zjtjkwuj58/28/21 [employer]/17/22Team MemberRelationshipSpecialtyStart DateEnd Date Kalli Simons MD [address] [place] [address] PCP - GeneralFamily Vdivqaht37/28/21 [employer]06/17/22Team MemberRelationshipSpecialtyStart DateEnd Date Kalli Simons MD [address] [place] [address] PCP - GeneralFamily Mofnlyrf99/28/21 [employer]/17/22Team MemberRelationshipSpecialtyStart DateEnd Date Kalli Simons MD [address] [place] [facility] [place] [place] [address] PCP - GeneralFamily Moyahqnk60/28/21 [employer]06/17/22 Team Status: Active Member Role Status Dates Juliette Berumen DO Primary Care Provider Active Start: June 03, 2024 Rashid Lyn ProviderActiveStart: June 03, 2024 Team MemberRelationshipSpecialtyStart DateEnd Date Kalli Simons MD [address] [place] [facility] [place] [address] PCP - GeneralFamily Bzzuvhhq38/28/21 [employer]/17/22 Team Status: Active Member Role Status Dates Juliette Berumen DO Primary Care Provider Active Start: June 19, 2024 Rashid Lyn ProviderActiveStart: June 19, 2024 Team MemberRelationshipSpecialtyStart DateEnd Date Kalli Simons MD [address] [place] [facility] [place] [address] PCP - GeneralFamily Unpqlwpv51/28/21 [employer]/17/22 Team Status: Active Member Role Status Dates Juliette Berumen DO Primary Care Provider Active Start: July 03, 2024 Rashid Lyn ProviderActiveStart: July 03, 2024 Team Status: Active Member Role Status Dates Juliette Berumen DO Primary Care Provider Active Start: July 24, 2024 Rashid Lyn ProviderActiveStart: July 24, 2024 Team MemberRelationshipSpecialtyStart DateEnd Date Kalli Simons MD [address] [place] [facility] [place] [address] PCP - GeneralFamily Deujsaxc96/28/21 [employer]06/17/22Team MemberRelationshipSpecialtyStart DateEnd Date Kalli Simons MD [address] [place] [address] PCP - GeneralFamily Rpkurovu49/28/21 [employer]06/17/22Team MemberRelationshipSpecialtyStart DateEnd Date Kalli Simons MD [address] [place] [place] [address] PCP - GeneralFamily Kebuijqu20/28/21 [employer]06/17/22Team MemberRelationshipSpecialtyStart DateEnd Date Kalli Simons MD [address] [place] [address] PCP - GeneralFamily Tdrozwmx00/28/21 [employer]06/17/22 Team Status: Active Member Role Status Dates Juliette Berumen DO Primary Care Provider Active Start: December 10, 2024 Rashid Lyn ProviderActiveStart: December 10, 2024 Goals (unrecognized section and content) Goals may be documented in a n alternate section Scheduled Active and Recently Administ ered Medications (unrecognized section and content) Medication Order07/10//// alteplase (CATHFLO ACTIVASE) 2 MG injection (COMPLETED) 2 mg, Flush Catheter, ONCE, 1 dose, On Sun07/13/23 at 0300 * 0311 (Given - Provider: Molly Martinez RN) ceFAZolin (ANCEF) 2,000 mg in dextrose 50 mL ivpb (COMPLETED) 2,000 mg, Intravenous, EVERY 8 HOURS ANTIBIOTIC, 2 doses, First dose on Sun07/11/23 at 0800, Last dose on Sun07/11/23 at 1400 * 0912 (IV New Bag - Provider: Whitney Shah RN) * 1727 (IV New Bag - Provider: Jennifer Dorman, ALISTAIR) hydrophilic wound dressing (TRIAD) external paste Apply externally, 2 TIMES DAILY, First dose (after last modification) on Sun06/29/23 at 2100, UntilDiscontinued * 0925 (Given - Provider: Whitney Shah RN) * 2111 (Given - Provider: Nabil Noguera RN) * 0824 (Given - Provider: Jennifer Dorman, ALISTAIR) * 2100 (Given - Provider: Molly Martinez RN) * 0900 (Given - Provider: Estee Sood) * 2100 (Due) insulin glargine (LANTUS SOLOSTAR/BASAGLAR KWIKPEN) 100 UNIT/ML PEN injection (CANCELED) 30 Units, Subcutaneous, EVERY MORNING, First dose (after last modification) on Sun07/11/23 at 0900,Until Discontinued * 0913 (Given - Provider: Whitney Shah RN) insulin lispro (HumaLOG) 100 UNIT/ML injection (CANCELED) 3-7 Units, Subcutaneous, 3 TIMES DAILY BEFORE MEALS, First dose on Sun07/10/23 at 1700, Until Discontinued * 0912 (Given - Provider: Whitney Shah RN - Comment: 121, pt ate full meal) * 1320 (Given - Provider: Whitney Shah RN - Comment: 93, pt ate full meal) insulin lispro (HumaLOG) 100 UNIT/ML injection (CANCELED) 3-6 Units, Subcutaneous, 3 TIMES DAILY BEFORE MEALS, First dose (after last modification) on Sun07/11/23 at 1700, Until Discontinued * 1836 (Given - Provider: Jennifer Dorman RN - Comment: Pt ate 100% of meal) insulin lispro (HumaLOG) 100 UNIT/ML injection (COMPLETED) 6 Units, Subcutaneous, ONCE, 1 dose, On Sun07/12/23 at 0930 * 0846 (Given - Provider: Jennifer Dorman RN) lisinopril (ZESTRIL) tablet 20 mg, Oral, DAILY, First dose on Sun07/11/23 at 0900, Until Discontinued * 0913 (Given - Provider: Whitney Shah RN) * 0822 (Given - Provider: Jennifer Dorman RN) * 0920 (Given - Provider: Estee Sood) methocarbamol (ROBAXIN) tablet 500 mg, Oral, EVERY 8 HOURS, First dose on Sun07/04/23 at 0730, Until Discontinued * 0010 (Given - Provider: Leonor Pineda RN) * 0913 (Given - Provider: Whitney Shah RN) * 1727 (Given - Provider: Jennifer Dorman RN) * 2330 (Given - Provider: Nabil Noguera RN) * 0620 (Given - Provider: Nabil Noguera RN) * 1356 (Given - Provider: Jennifer Dorman RN) * 1530 (Hold/Not Given - Provider: Jennifer Dorman, RN - Reason: Previously Administered) * 2330 (Hold/Not Given - Provider: Molly Martinez RN - Reason: Patient sleeping) * 0920 (Given - Provider: Estee Sood) * 1530 (Due) * 2330 (Due) metoprolol (TOPROL-XL) 24 hour tablet 100 mg, Oral, DAILY, First dose (after last modification) on Sun07/01/23 at 0900, Until Discontinued * 0913 (Given - Provider: Whitney Shah RN) * 0822 (Given - Provider: Jennifer Dorman RN) * 0920 (Given - Provider: Estee Sood) Posaconazole (NOXAFIL) 100 MG tablet [facility] 300 mg, Oral, DAILY, First dose on Sun06/29/23 at 1230, Until Discontinued * 1320 (Given - Provider: Whitney Shah RN) * 1008 (Given - Provider: Jennifer Dorman RN) * 0918 (Given - Provider: Estee Sood) psyllium (METAMUCIL) 25 % packet 1 Packet, Oral, 2 TIMES DAILY, First dose on Sun07/08/23 at 1400, Until Discontinued * 0900 (Hold/Not Given - Provider: Whitney Shah RN - Reason: Patient refused) * 2100 (Hold/Not Given - Provider: Nabil Noguera RN - Reason: Patient refused) * 0900 (Hold/Not Given - Provider: Jennifer Dorman RN - Reason: Patient refused) * 2100 (Hold/Not Given - Provider: Molly Martinez RN - Reason: Patient refused) * 0918 (Given - Provider: Estee Sood) * 2100 (Due) Medication Order// insulin pump from home Starting on Sun07/12/23 at 0830, Insulin Type (in pump): insulin aspart (NOVOLOG), Patient or responsible caregiver may maintain, in conjection with ordering provider: Yes, Use previous home settings * 0830 (Due) Medication Order07/10/// acetaminophen (TYLENOL) tablet 650 mg, NG Tube, EVERY 6 HOURS PRN, Starting on Sun07/03/23 at 1145, Until Discontinued, Mild Pain (pain score 1,2,3), Moderate Pain (pain score 4,5,6) * 0512 (Given - Provider: Leonor Pineda, ALISTAIR) albuterol (PROVENTIL) (2.5 MG/3ML) 0.083% nebulizer solution 2.5 mg, Nebulization, EVERY 6 HOURS PRN, Starting on Sun06/29/23 at 1119, Until Discontinued, Shortness of Breath, Wheezing dextrose (GLUTOSE) 40 % oral gel(Linked Group 1) 15 g of glucose, Buccal, PRN, Starting on Sun06/25/23 at 1721, Until Discontinued, blood glucose between 50 - 69 mg/dL, and with no IV access, alert and able to swallow. * 1545 (Given - Provider: Jennifer Dorman RN - Comment: patient BS 68. Patient is alert and oriented. Patient ate but request dextrose.) dextrose (GLUTOSE) 40 % oral gel(Linked Group 1) 30 g of glucose, Buccal, PRN, Starting on Sun06/25/23 at 1721, Until Discontinued, blood glucose of49mg/dL or less, and with no IV access, alert and able to swallow. * 1545 (See Alternative - Provider: Jennifer Dorman RN) dextrose 10 % iv infusion(Linked Group 1) 125 mL, Intravenous, at 999 mL/hr, PRN, Starting on Sun06/25/23 at 1721, Until Discontinued, For blood glucose less than 70 mg/dL, with IV access and with loss of consciousness or unable to swallow or NPO * 1545 (See Alternative - Provider: Jennifer Dorman, ALISTAIR) glucagon (GLUCAGEN) 1 MG injection(Linked Group 1) 1 mg, Subcutaneous, PRN, Starting on Sun06/25/23 at 1721, Until Discontinued, For blood glucose less than 70 mg/dL and with no IV access with loss of consciousness or alert and unable to swallow. * 1545 (See Alternative - Provider: Jennifer Dorman RN) naloxone (NARCAN) 0.4 MG/ML injection 0.4 mg, Intravenous Push, PRN, Starting on Sun07/10/23 at 1201, Until Discontinued, Respiratory Rate Less Than 8 for adults and less than 12 for Peds or for suspected overdose, PACU Now ondansetron (ZOFRAN) 4 MG/2ML injection 4 mg, Intravenous Push, EVERY 6 HOURS PRN, Starting on Sun06/29/23 at 1959, Until Discontinued * 1326 (Given - Provider: Whitney Shah, ALISTAIR) oxyCODONE immediate release tablet 5 mg, NG Tube, EVERY 6 HOURS PRN, Starting on Sun07/03/23 at 1200, Until Discontinued, Severe Pain (pain score 7,8,9,10) * 0512 (Given - Provider: Leonor Pineda RN) * 1326 (Given - Provider: Whitney Shah RN) * 2041 (Given - Provider: Nabil Noguera RN) senna (SENOKOT) tablet 8.6 mg, Oral, AT BEDTIME PRN, Starting on Sun07/06/23 at 1400, Until Discontinued, Constipation Order Group 1: dextrose 10 % iv infusionJump to med 125 mL, Intravenous, at 999 mL/hr, PRN, Starting on Sun06/25/23 at 1721, Until Discontinued, For blood glucose less than 70 mg/dL, with IV access and with loss of consciousness or unable to swallow or NPO Or glucagon (GLUCAGEN) 1 MG injectionJump to med 1 mg, Subcutaneous, PRN, Starting on Sun06/25/23 at 1721, Until Discontinued, For blood glucose less than 70 mg/dL and with no IV access with loss of consciousness or alert and unable to swallow. Or dextrose (GLUTOSE) 40 % oral gelJump to med 15 g of glucose, Buccal, PRN, Starting on Sun06/25/23 at 1721, Until Discontinued, blood glucose between 50 - 69 mg/dL, and with no IV access, alert and able to swallow. Or dextrose (GLUTOSE) 40 % oral gelJump to med 30 g of glucose, Buccal, PRN, Starting on Sun06/25/23 at 1721, Until Discontinued, blood glucose of49mg/dL or less, and with no IV access, alert and able to swallow. FOR RECORDS PERTAINING TO PATIENTS WHO ARE [...] BE BASED ON THE PRIMARY CLINICAL RECORDS. [facility] [employer] [facility]. provides no warranty or guarantee of the accuracy or completeness of information in this document.
[2025-02-23] MEDS: OXYCODONE HCL/ACETAMINOPHEN 5MG/325MG 1 TAB PO (17:17)
== END 2025-02-23 17:31 | disposition home or self-care (01) ==
PROVIDERS: Emergency Provider Student in an Organized Health Care Education/Training Program; PCP Internal Medicine
DX: S63.501A Unspecified sprain of right wrist, initial encounter (principal); V49.59XA Passenger injured in collision with other motor vehicles in traffic accident, initial encounter
CPT/HCPCS: 73110; 99283

== ENCOUNTER 2025-03-04 20:22 | Emergency (ER) | payer MEDICARE, SELFPAY ==
--- OUTSIDE RECORDS SUMMARY | 2025-02-17 09:00 | XMS_ITS | Encounter Summary ---
Author Organization [facility] Address [address] [place] [address] Care Team Providers Care Post Commander Name Role Phone Oliva Simons MD Primary Care Provider [phone] Source Comments In the event this information is protected by the Federal Confidentiality of Alcohol and Drug AbusePatient Records regulations: The Federal rules restrict any use of the information to criminally investigate or prosecute any alcohol or drug abuse patient.[facility] Reason for Visit * Diagnostic Procedure Only (Routine) - ClosedSpecialtyDiagnoses / Procedures Referred By ContactReferred To ContactXR IMAGING Diagnoses Closed fracture of distal end of left femur, unspecified fracture morphology, initial encounter (HCC) Procedures XR FEMUR GENERAL 2V AP/LAT LEFT RADIOLOGIC EXAMINATION FEMUR MINIMUM [place] [address] [place] [address] Phone: tel: fax: [place] [address] Referral IDStatusReasonStart DateExpiration DateVisits RequestedVisits [id number] Auto-Generated Referral / Encounter Details DateTypeDepartmentCare Team (Latest Contact Info)Xasdalqasct91/04/2025 9:00 AM EST - 02/17/2025 11:59 PM ESTHospital Encounter Radiology [address] [place] [address] Closed fracture of distal end of left femur, unspecified fracture morphology, initial encounter ([facility]) [S72.402A] Discharge Disposition: Home Social History Tobacco UseTypesPacks/DayYears UsedDateSmoking Tobacco: NeverSmokeless Tobacco: NeverAlcohol UseStandard Drinks/WeekCommentsNot Currently0 (1 standard drink = 0.6 oz pure alcohol)[facility] UtilitiesAnswerDate RecordedIn the past 12 months has the electric, gas, oil, or water company threatened to shut off services in your home?No08/25/2024Overall Financial Resource Strain (CARDIA)AnswerDate Recorded How hard is it for you to pay for the very basics like food, housing, medical care, and heating?Not hard at all06/16/2022HQ-2AnswerDate RecordedPHQ-2 score0 10/22/2024Hunger Vital SignAnswerDate RecordedWithin the past 12 months, you worried that your food would run out before you got the money to buymore.Never true08/25/2024Within the past 12 months, the food you bought just didn't last and you didn't have money to get more.Never true08/25/2024PRAPARE - TransportationAnswerDate RecordedIn the past 12 months, has lack of transportation kept you from medical appointments or from getting medications?No 08/25/2024In the past 12 months, has lack of transportation kept you from meetings, work, or from getting things needed for daily living?No08/25/2024 Housing Stability Vital SignAnswerDate RecordedIn the last 12 months, was there a time when you were not able to pay the mortgage or rent on time?No10/12/2023 Number of Places Lived in the Last YearNot on file10/12/2023In the last 12 months, was there a time when you did not have a steady place to sleep or slept in raleighelter (including now)?No10/12/2023Housing Stability Vital SignAnswerDate RecordedIn the last 12 months, was there a time when you were not able to pay the mortgage or rent on time?No08/25/2024Number of Times Moved in the Last Year Not on file08/25/2024t any time in the past 12 months, were you homeless or living in a halfway (including now)?Yes08/25/2024UDIT-CAnswerDate RecordedQ1: How often do you have a drink containing alcohol?Never02/12/2025Q2: How many drinks containing alcohol do you have on a typical day when you are drinking? Patient does not drink02/12/2025Q3: How often do you have six or more drinks on one occasion?Never02/12/2025rea Deprivation IndexAnswerDate RecordedNational Score (1-100), lower number is lower wkiq988701/09/2024State Score (1-10), lower number is lower hesi369ata from: https://www.neighborhoodatlas.[facility].edu/. Last address used for dug[address]af[address]bel[address]01/09/2024CommentsNoSex and Gender InformationValueDate RecordedSex Assigned at BirthNot on fileLegal SexFemale 03/17/2012 7:33 AM ESTGender IdentityNot on fileSexual OrientationNot on file documented as of this encounter Functional Status * Are you deaf or do you have serious difficulty hearing?AnswerDate of QicaudzshkNqckteBa19/15/2025 11:29 AM Nivia Peña RN * Are you blind or do you have serious difficulty seeing, even when wearing glasses?AnswerDate of RwmklabydqMpsfcdNs24/15/2025 11:29 AM Nivia Peña RN * Do you have serious difficulty walking or climbing stairs?AnswerDate of XtpgebrxllEuxqfmGzt32/15/2025 11:29 AM Nivia Peña RN * Do you have difficulty dressing or bathing?AnswerDate of AssessmentAuthorNo 08/28/2024 11:29 AM Nivia Peña RN * Because of a physical, mental, or emotional condition, do you have difficulty doing errands alone such as visiting a doctor's office or shopping?AnswerDate of IcjeohwnhgOsnskpTqt46/15/2025 11:29 AM Nivia Peña RN documented as of this encounter Mental Status * Because of a physical, mental, or emotional condition, do you have serious difficulty concentrating, remembering, or making decisions?AnswerEntry Date WrfgwyPj63/15/2025 11:29 AM Nivia Peña RN documented in this encounter Medications at Time of Discharge MedicationSigDispense QuantityRefillsLast FilledStart DateEnd Date posaconazole DR (NOXAFIL) 100 mg tablet Indications:Fungal meningitis (HCC)Take 3 tablets by mouth once daily. 270 tablet doxycycline hyclate (VIBRAMYCIN) 100 mg capsule Take 1 capsule by mouth once daily.12/27/2024 metoprolol tartrate, short acting, (LOPRESSOR) 50 mg tablet Take 50 mg by mouth two times a day.12/25/2024 metroNIDAZOLE (METROGEL) 0.75 % Topical Gel Apply 0.75 % to affected area as needed.12/28/2024 ondansetron (ZOFRAN) 4 mg tablet Take 4 mg by mouth as needed.11/16/2024 ofloxacin (OCUFLOX) 0.3 % ophthalmic solution One drop in the OPERATIVE EYE only four times a day starting the day before surgery 10 mL isavuconazonium sulfate (CRESEMBA) 186 mg capsule Take 2 capsules by mouth as directed. Take two (2) capsules by mouth every 8 hours for 6 doses, then two (2) capsules per day. 180 capsule baclofen 10 mg tablet Take 10 mg by mouth three times a day. 15cu-[id number]-[id number] DOCUSATE SODIUM PO Take 100 mg by mouth once daily. FAMOTIDINE PO Take by mouth. polyethylene glycol 1450 MW, NF, BASE A, powd cholecalciferol, vitamin D3, (VITAMIN D3 PO) Take by mouth. acetaminophen (TYLENOL) 325 mg tablet Take 2 tablets by mouth every 6 hours as needed for pain.08/28/2024 aspirin, enteric coated (ADULT LOW DOSE ASPIRIN) 81 mg EC tablet Take 1 tablet by mouth two times a day for 28 days, THEN 1 tablet two times a day. 60 tablet 512/12/2024 metoprolol succinate ER (TOPROL XL) 100 mg Take 0.5 tablets by mouth two times a day. 90 tablet 08/28/2024 lisinopril (ZESTRIL) 5 mg tablet Take 1 tablet by mouth once daily. 30 tablet 08/28/2024 bumetanide (BUMEX) 1 mg tablet Take 1 tablet by mouth every 12 hours.03/12/2024 cyanocobalamin (VITAMIN B-12) 1,000 mcg tab Take 1,000 mcg by mouth.11/07/2023 glucagon 3 mg/actuation nasal spray (BAQSIMI) 04/29/2019 ondansetron orally disintegrating (ZOFRAN ODT) 4 mg disintegrating tablet Take 4 mg by mouth every 6 hours as needed.11/07/2023 DULCOLAX, BISACODYL, RECTAL by RECTAL route once daily as needed. dextrose 40 % gel Take 15 g by mouth as needed. insulin aspart U-100 (NOVOLOG) 100 unit/mL Use via insulin pump Max daily dose 100 units, DX: E10.65074documented as of this encounter Progress Notes * Silvino Leach RT(R) - 02/17/2025 9:00 AM EST Radiology Service Progress Note PATIENT NAME: Khadijah Borges DATE OF SERVICE: February 17, 2025 TIME: 9:17 AM PATIENT IDENTITY VERIFICATION COMPLETED USING TWO (2) IDENTIFIERS: Name and Date of confirmedby patient verbally. FALL SCREENING: Has the patient had 2 falls in the last year or 1 fall with injury or currently using an Ambulatory Assistive Device (Walker, Cane, Wheelchair, Crutches, etc.)? No PATIENT GENDER DATA: Assigned female at . status: : No status:NO. PATIENT RELEVANT IMPLANT DATA REVIEWED: Yes PATIENT PRESENTS WITH AN IMPLANTABLE OR ATTACHED ACADEMIC HOSPITALIST: No RADIOLOGY DEPARTMENT: General X-ray: Exam(s) Completed: Lower Extremity X- Ray(s): Femur, Left PERIPHERAL IV DATA: Not applicable SIGNED BY: RT Luis(R) February 17, 2025 9:17 AM documented in this encounter Plan of Treatment DateTypeDepartmentCare Team (Latest Contact Info)Wmwvlcaxsjf34/20/2025 2:20 PM ESTPAT Pre Anesthesia [address] [place] [address] 1, Pacc Kirkman [address] [facility] [address] CATARACT SURGERY RIGHT THEN LEFT QDSLKX4303/05/2025 3:00 PM ESTOffice Visit OPHT Ophthalmology [address] [facility] [place] [address] CATARACT SURGERY RIGHT THEN LEFT MGXZVV6203/18/2025 8:50 AM ESTHospital Encounter Ambulatory Surgery [address] [facility] [place] [address] Astrid Gaxiola MD [address] [place] [address] Combined forms of age-related cataract of right eye [H25.811]03/18/2025 8:50 AM EST - 03/18/2025 9:25 AM ESTSurgery Ambulatory Surgery [address] [facility] [place] [address] Astrid Gaxiola MD [address] [place] [address] PHACOEMULSIFICATION CATARACT IMPLANT INTRAOCULAR LENS W/O ENDOSCOPIC OETMGWAYVODKBOXRECAGW20/10/2025 9:05 AM ESTHospital Encounter Ambulatory Surgery [address] [place] [address] Astrid Gaxiola MD [address] [place] [address] Combined forms of age-related cataract of left eye [H25.812]03/25/2025 9:05 AM EST - 03/25/2025 9:40 AM ESTSurgery Ambulatory Surgery [address] [facility] [place] [address] Astrid Gaxiola MD [address] [place] [address] PHACOEMULSIFICATION CATARACT ANTERIOR IMPLANT INTRAOCULAR LENS W/O ENDOSCOPIC POQNWGOBJCMFYBCGRZSTD34/18/2025 9:30 AM ESTOffice Visit [facility] [address] [place] [address] Susanna Carranza PA-C [address] [place] [address] Next available New fajcbnc5505/05/2025 12:00 PM [facility]rology [address] [address] Chente Phillip MD [address] [place] [address] 6 month vv - h/o bladder cancer per cc chart05/07/2025 1:00 PM ESTOffice Visit OPHT Ophthalmology [address] [place] [address] Ulisses Kauffman MD [address] [place], [place] [id number] [facility] [address] [address] *NEW, PRE OP CLEAR PER ELIJAH, T1 PDR, DFE/OCT/OCT-A OPTOS OU r/s from 02/1205/12/2025 1:00 PM ESTOffice Visit Rehab Medicine [facility] [address] [place] [address] Noel Daniels MD [address] [place] [address] botox05/14/2025 10:15 AM ESTOffice Visit [facility] [address] [place] [address] [place] [address] [facility] [place] [address] Next available New patientNamePriorityAssociated DiagnosesDate/Time PHACOEMULSIFICATION CATARACT IMPLANT INTRAOCULAR LENS W/O ENDOSCOPIC CYCLOPHOTOCOAGULATION Combined forms of age-related cataract of right eye 03/18/2025 8:50 AM ESTOPHTHALMIC BIOMETRY BY PARTIAL COHERENCE INTERFEROMETRY W/INTRAOCULAR LENS POWER CALCULATION Combined forms of age-related cataract of right eye 03/18/2025 8:50 AM ESTPHACOEMULSIFICATION CATARACT ANTERIOR IMPLANT INTRAOCULAR LENS W/O ENDOSCOPIC CYCLOPHOTOCOAGULATION Combined forms of age-related cataract of left eye 03/25/2025 9:05 AM ESTOPHTHALMIC BIOMETRY BY PARTIAL COHERENCE INTERFEROMETRY W/INTRAOCULAR LENS POWER CALCULATION Combined forms of age-related cataract of left eye 03/25/2025 9:05 AM ESTdocumented as of this encounter Goals GoalPatient Goal TypeAssociated ProblemsRecent ProgressPatient-Stated?Author Autogenerated Goal Care PlanAutogenerated ProblemNoChey Botello Autogenerated Goal Care PlanAutogenerated Chey Orellana Ddocumented as of this encounter Procedures Procedure NamePriorityDate/TimeAssociated DiagnosisCommentsXR FEMUR GENERAL 2V AP/LAT NLJXPxjtflj35/04/2025 9:27 AM EST Closed fracture of distal end of left femur, unspecified fracture morphology, initial encounter ([facility]) documented in this encounter Results * XR FEMUR GENERAL 2V AP/LAT LEFT (02/17/2025 9:27 AM EST)Anatomical Region LateralityModalityFemurOtherSpecimen (Source)Anatomical Location / Laterality Collection Method / VolumeCollection TimeReceived Time02/17/2025 9:27 AM EST Impressions 02/23/2025 9:21 AM EST IMPRESSION: Healed left distal femur fracture status post open reduction internal fixation. Public Policy Coordinator: SUMA ?? Transcribe Date/Time: Feb 23 2025 ??9:18A Dictated by : LIAT ANDUJAR MD This examination was interpreted and the report reviewed and electronically signed by: LIAT ANDUJAR MD on Feb 23 2025 ??9:19AM ??EST Narrative 02/23/2025 9:21 AM EST * * *Final Report* * * DATE OF EXAM: Feb?2024 ??9:27AM ?? FGX ?? 5332 ??- ??XR FEMUR 2V AP/LAT LT ??/ PROCEDURE REASON: Closed fracture of distal end of left femur, unspecified fracture morphology, in ? * * * * Physician Interpretation * * * * EXAMINATION / TECHNIQUE: ??XR FEMUR 2V AP/LAT LT PATIENT/TECHNOLOGIST PROVIDED HISTORY: ?? fracture CLINICAL INFORMATION ( PROVIDED BY ORDERING CLINICIAN) : ??Closed fracture of distal end of left femur, unspecified fracture morphology, initial encounter ([facility]) COMPARISON: 12/11/2024 RESULT: No acute fracture or dislocation. Healed left distal femur fracture status post open reduction internal fixation with a long intramedullary vanessa and proximal and distal interlocking screws. Hardware is intact. Diffuse osteopenia. Left hip joint space is maintained. Left acetabular osteophytes. Mild to moderate left sacroiliac joint osteoarthritis. Solid osseous fusion across the pubic symphysis. Left knee osteoarthritis, most pronounced in the patellofemoral compartment. Incompletely assessed left tibial fixation hardware. Atherosclerotic vessel calcifications. Procedure Note Provider, [facility] [place] - 02/23/2025 * * *Final Report* * * DATE OF EXAM: Feb 17 2025 9:27AM FGX 5332 - XR FEMUR 2V AP/LAT LT / PROCEDURE REASON: Closed fracture of distal end of left femur, unspecified fracture morphology, in * * * * Physician Interpretation * * * * EXAMINATION / TECHNIQUE: XR FEMUR 2V AP/LAT LT PATIENT/TECHNOLOGIST PROVIDED HISTORY: fracture CLINICAL INFORMATION ( PROVIDED BY ORDERING CLINICIAN) : Closed fracture of distal end of left femur, unspecified fracture morphology, initial encounter ([facility]) COMPARISON: 12/11/2024 RESULT: No acute fracture or dislocation. Healed left distal femur fracture status post open reduction internal fixation with a long intramedullary vanessa and proximal and distal interlocking screws. Hardware is intact. Diffuse osteopenia. Left hip joint space is maintained. Left acetabular osteophytes. Mild to moderate left sacroiliac joint osteoarthritis. Solid osseous fusion across the pubic symphysis. Left knee osteoarthritis, most pronounced in the patellofemoral compartment. Incompletely assessed left tibial fixation hardware. Atherosclerotic vessel calcifications. IMPRESSION IMPRESSION: Healed left distal femur fracture status post open reduction internal fixation. Public Policy Coordinator: SUMA Transcribe Date/Time: Feb 23 2025 9:18A Dictated by : LIAT ANDUJAR MD This examination was interpreted and the report reviewed and electronically signed by: LIAT ANDUJAR MD on Feb 23 2025 9:19AM EST Authorizing ProviderResult TypeResult StatusAnojasmine Pereirari MDRAD-PAMAFinal Result documented in this encounter Visit Diagnoses Diagnosis Closed fracture of distal end of left femur, unspecified fracture morphology, initial encounter (HCC) Combined forms of age-related cataract of right eye Other and combined forms of senile cataract Combined forms of age-related cataract of left eye Other and combined forms of senile cataract documented in this encounter Additional Health Concerns Active ProblemsNoted DateDiagnosed DateAutogenerated Dtgkjxx9112/23/2024 Autogenerated Eflowzt3412/23/2024documented as of this encounter Care Teams Team MemberRelationshipSpecialtyStart DateEnd Date Oliva Simons MD [address] [place] [address] PCP - GeneralFamily Xayhufxg34/28/21 [employer]06/17/22documented as of this encounter
--- OUTSIDE RECORDS SUMMARY | 2025-02-27 04:13 | XMS_ITS | Continuity of Care Document ---
Author Organization 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 Name Role Phone Ramon Poole DO Primary Care Provider Ramon Poole DO Attending Provider [phone] Raquel South APRN Attending Provider Care Teams Patient Care Team Team Status: Active Member Role/Relationship Status Dates Ramon Poole DO Primary Care Provider Active Visit Care Team Team Status: Inactive Member Role/Relationship Status Dates Ramon Poole DO Primary Care Provider Active Start: December 26, 2024 End: December 26Ese Silvestre ProviderActiveStart: December 26, 2024 End: December 26, 2024 Visit Care Team Team Status: Inactive Member Role/Relationship Status Dates Ramon Poole DO Primary Care Provider Active Start: December 31, 2024 End: December 31, 2024Rashid Lyn ProviderActiveStart: December 31, 2024 End: December 31, 2024 Patient Care Team Team Status: Inactive Member Role/Relationship Status Dates Ramon Poole DO Primary Care Provider Active Start: February 27, 2025 End: February 27Ese Silvestre ProviderActiveStart: February 27, 2025 End: February 27, 2025 Chief Complaint and Reason for Visit Chief Complaint Admit Date 1 week December 26, 2024 11:22am Open Wound December 31, 2024 11:04am ER (TBH) f/u February 27, 2025 8:40am Reason for Visit Admit Date Chronic venous insufficiency December 152024 11:22am HTN [...] angiopathy without gangrene December 31, 2024 11:04am Avulsion fracture of bone February 27, 2025 8:40am Fracture of ulna, closed February 27, 2025 8:40am UTI (urinary tract infection) February 142024 8:40am Allergies, Adverse Reactions, Alerts Allergen Type Severity Reaction Last Updated Verified Status cyclobenzaprine Allergy Unknown Rash, hives February 27, 2025 8:43am Yes Active meperidine Allergy Unknown Dizziness, rash February 27, 2025 8:43am Yes Active orphenadrine Allergy Unknown hives February 8:43am Yes Active midazolam Allergy Unknown Agitated February 27, 2025 8:43am Yes Active Social History Smoking Status Status Start Date End Date Date of Observa tion Never smoked tobacco (finding) December 31, 2024 11:23am Observation Status Observation Response Date of Response Legal Sex Female (finding) Sex Assigned At BirthFemaleFebruary 1965 Family History Relationship Condition Age at Onset Recorded Date/T migue father Unknown Heart diseaseUnknownmotherHypertensionUnknown Problems Active Problems Problem Diagnosis/Recorded Date Onset Date Status C omments Prerenal azotemia July 31, 2024 8:54pm Unknown Activ e Pressure injury of left heel, stage 1September 2024 4:11pmUnknownActive Pressure injury of left heel, stage 3February 2024 2:42pmUnknownActive Medicare annual wellness visit, subsequentOctober 2023 11:56amUnknownActive 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February 2024 12:47pmUnknownActiveScreening mammogram for breast cancerOctober 2023 11:59amUnknownActiveAge-related nuclear cataract of both eyesApril 2023 1:00pmUnknownActiveType 1 diabetes mellitus with hyperglycemiaJune 2023 9:17pmUnknownActiveImpaired mobility and ADLsJanuary 2024 2:40pmUnknownActiveType 1 diabetes mellitus with diabetic peripheral angiopathy without gangreneJanuary 2024 9:53pmUnknown ActiveMultiple rib fracturesJuly 2024 5:08pmUnknownActiveLeft 3,4 and 6 Fracture of ulna, closedNovember 2024 9:08amUnknownActiveWound infection July 24, 2024 2:20pmUnknownActiveVitamin B12 deficiencyApril 2023 1:00pm UnknownActiveDiarrheaMarch 2024 1:57pmUnknownActiveHydrocephalusApril 2023 1:00pmUnknownActiveLymphedemaJanuary 2024 2:40pmUnknownActiveSpastic hypertoniaApril 2024 9:01pmUnknownActiveFracture, femur, distalMay 2024 3:54pmMay, 2025ActiveRectal bleedingMarch 2024 1:57pmUnknownActive Peripheral artery diseaseFebruary 2024 1:19pmUnknownActiveAvulsion fracture of boneNovember 2024 9:07amUnknownActiveChronic venous insufficiencyApril 2023 1:00pmUnknownActiveTransitional cell bladder cancer July 16, 2023 1:00pmUnknownActiveCystectomy Apr, 2021HTN (hypertension)July 16, 2023 1:00pmUnknownActiveInactive/Resolved Problems Problem Diagnosis/Recorded Date Onset Date Status C omments MARLENA (acute kidney injury) April 30, 2021 3:48pm Unknown Resolved Proble m List clean-up per request of Phys. EHR Cmte Thoracic spine tumor June 04, 2022 8:45am Unknown Resolved Probl em List clean-up per request of Phys. EHR Cmte Thin build in adult August 08, 2022 12:43pm Unknown Re solved Pressure ulcer of sacral region, stage 3April 2022 12:41pmUnknownResolved DKA (diabetic ketoacidosis)June 06, 2021 4:12pmUnknownResolvedProblem List clean-up per request of Phys. EHR CmteAcute respiratory failureFebruary 2022 3:49pmUnknownResolvedProblem List clean-up per request of Phys. EHR Cmte Unable to care for selfSeptember 2021 9:51amUnknownResolvedProblem List clean-up per request of Phys. EHR CmteHistory of ileal conduitJanuary 2021 12:02xl6447RublwfiyLgbklTrtacui 2021 12:51pmUnknownResolvedProblem List clean-up per request of Phys. EHR CmteAbsolute hypovolemiaJanuary 2021 3:48pmUnknownResolvedProblem List clean-up per request of Phys. EHR CmteSeizure June 04, 2022 8:45amUnknownResolvedProblem List clean-up per request of Phys. EHR CmteAbnormal MRI of headFebruary 2022 8:45amUnknownResolved Diffuse meningeal enhancement brain, cervical, thoracic and lumbar spineProblem List clean-up per request of Phys. EHR CmteSepsisFebruary 2021 4:13pm UnknownResolvedProblem List clean-up per request of Phys. EHR CmteAltered mental statusSeptember 2021 9:51amUnknownResolvedProblem List clean-up per request of Phys. EHR CmteAbdominal painJanuary 2021 2:03amUnknownResolved Problem List clean-up per request of Phys. EHR CmteAcute hyperkalemiaJanuary 2021 3:48pmUnknownResolvedProblem List clean-up per request of Phys. EHR CmteLactic acid acidosisFebruary 2021 4:13pmUnknownResolvedProblem List clean-up per request of Phys. EHR Cmte Medications Medication Status Dose Units Route Directions Qty Days Refills S tart Date Stop Date End Date Reason(s) Instructions Adherence Fluticasone Propionate 50 mcg/actuation spray,suspensi on Discontinued 0 .ROUTE.VSLHEAN629Bwk 14th, 2024 8:46amAugust 2024 9:27amDysfunction of eustachian tube Unspecified Eustachian tube disorder, unspecified earUSE 1 SPRAY IN EACH NOSTRIL TWICE A DAYFurosemide 20 mg ihcrpoDaezjxxqnxje97JMDMXslfx792Jmeptlha 15th, 2024 12:00amNoveer 2023 12:12pmFurosemide 20 mg dalurtSkzncigdbzac85ITVQTnnax xfarj600Uuwkdxfe 25th, 2024 12:11pm[facility]20[facility] 1:03pmFurosemide 20 mg bzaohrXbopycrdujhv81RHUXNwtfh giliv91029ItsfnyevMarch 10, 2024 1:03pmNovencompass health rehabilitation [facility] 2023 5:10pmInsulin Aspart U-100 100 unit/mL solutionActive0.ROUTE.ZHGYESA1418 March 11, 2024 8:39amUSE IN INSULIN PUMP DAILYComplies with drug therapy Bumetanide 1 mg rtmunpUkmtdiquvkbi5BAYXAisqz uqyoa07640Taiphmdc 26th, 2024 12:00amNovember 2023 2:17pmBumetanide 1 mg qsejcjSqorwaqlieiy9FBTARwrxx yxpls66164Jzksxexk 27th, 2024 2:17pmDecember 2023 10:15pmPotassium Chloride 10 mEq capsule, extended hbbulxiAvbvkedolcwy16TFVIHDdnsm62611Hloomgzh 19th, 2024 12:00amDecember 2023 12:50pmMetoprolol Succinate (Toprol Xl) 100 mg tablet extended release 24 kwEvjzmraqbqdc739OOWBGjfgb pnpux184339Wdartvry 2023 8:52pmDecemb2023 12:50pmLisinopril 40 mg tabletDiscontinued 40MGPODailyDecember 2023 12:00amDecember 2023 12:50pmPotassium Chloride 10 mEq capsule, extended ptuixywRoqzmkkijlsn91PVWLMBarwlEnvcgtsw 2023 12:00amDecember 2023 12:49pmBaclofen 10 mg iduvzkKtgzejfhijnl61RFHV Twice ycfhf560YzuwxiohApril 04, 2024 12:00amDecember 2023 12:50pmMetoprolol Succinate (Toprol Xl) 100 mg tablet extended release 24 vuZajsvgksfaxh250ETOL Twice hmuzy463691Lsctcxtj 20th, 2024 12:49pmJuly 2024 7:43pmPotassium Chloride 10 mEq capsule, extended maymujoDhckshrdwusq42VVFSWJyxzu97152Ggrtnxeu 20th, 2024 12:49pmAugust 2024 9:29amBaclofen 10 mg irenfcRerspylzdqzd68QWIR Twice vztkn189272Auihmund 20th, 2024 12:50pmFebruary 2024 12:08pmLisinopril 40 mg frqohxDpwrfvccroab09ROPVRqxzd61107Ecnpkbpw 2023 12:50pmAugust 2024 9:29amBumetanide 1 mg tabletActive0.ROUTE.EFAYMEN6205Rbrczkln 30th, 2024 10:15pmTake 1 tablet by mouth twice dailyComplies with drug therapyWheelchair (W/C) unitDiscontinued0.Zfekr03Loafs 2024 11:00pmApril 2024 8:54am Ataxia Acquired spastic diplegia of lower extremities Hydrocephalus Ataxia, unspecified Paraplegia, unspecified Obstructive hydrocephalusSuperstand [facility] Hospitalechair Model [facility]-2 Half-Power [facility] Code: Z6706Pnvmeusuiq (W/C) unitDiscontinued0.Zbwkg88Bjuws 2024 8:53amApril 2024 8:55amAtaxia Acquired spastic diplegia of lower extremities Hydrocephalus Ataxia, unspecified Paraplegia, unspecified Obstructive hydrocephalusSuperstand [facility] System[facility]-2 Half-Power [facility] Code: D2821Vdxdbqkpgs (W/C) unitDiscontinued0.Xkztn34Ygqzr 2024 8:55amApril 2024 8:57amAtaxia Acquired spastic diplegia of lower extremities Hydrocephalus Ataxia, unspecified Paraplegia, unspecified Obstructive hydrocephalusSuperstand 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 Model [facility]-2 Half-Power [facility] Code: [id number]-Eekkxbwlvoud (Bactrim Ds) 800-160 mg tablet Rqodtviswoxl8NDJVTFerdi tdehp0088Mmrul 2024 11:00pmAugust 2024 9:30am Metoprolol Succinate 100 mg tablet extended release 24 hrDiscontinued0.ROUTE .NYHPKQS1678Nlpm 2024 7:43pmAugust 2024 9:31amTake 1 tablet by mouth twice dailyDoxycycline Hyclate 100 mg axbsvrxYjcqmdwkglkh801CZAWPscpr pwpfz24657 December 17, 2024 11:00pmSeptember 2024 11:01amLisinopril 40 mg tablet Vcwiwjlrmwtl03KRWIBqjnxSrrdewl 2024 11:00pmOctober 2024 8:03am Lisinopril 40 mg nkfpyuUytjsg98HUBYZpqxg10250Mbfjplh 2024 8:03amComplies with drug therapyVancomycin 125 mg kauotxmSqgavxltbilq033ASIIZ0F68065Shzwxoyp 2021 12:00amApril 2022 12:29pmDoxycycline Hyclate 100 mg tablet Opapnsylloly164VDAEMrcrj gwulo16804Bnfxtnk 21st, 2025 12:00amFebruary 2024 2:28pmDoxycycline Hyclate 100 mg hzynhykSkxxojmhetvn234URLWSqvuv viyly05711Hnuse 2024 11:00pmApril 2024 1:29pmCiprofloxacin Hcl 500 mg tablet Gegwuwrbcmsh227EAJXJpjsz dailyAugust 2024 11:00pmAugust 2024 10:11am Cephalexin Hcl 500 mg npzfqnHxwlubktkwwx435IXJYHaaqy times dailyAugust 2024 11:00pmAugust 2024 10:11amMetformin 500 mg xprgfzSvxrildlszcf234HXBP DailyJanuary 2021 12:00amFebruary 2021 1:30pmOn Hold: resume when you are tolerating a normal dietSulfamethoxazole-Trimethoprim 800-160 mg tablet Qkmcocydmrga4JGSQHUvcvhXcokmqr 2021 12:00amFebruary 2021 1:30pm Acetaminophen 500 mg zuuaogLgxoxmlwyspi6002ZERZOcogh 6 hours as needed for Pain April 30, 2021 12:00amApril 2022 12:28pmOndansetron 8 mg tablet,ejkieotmnavtztIhisdwxxmcjl2PMUPVhgqn 8 hoursJanuary 2021 12:00am August 08, 2022 12:29pmInsulin Aspart U-100 (Novolog U-100 Insulin Aspart) 100 unit/mL solutionDiscontinued0.ROUTE.COMPLEXJanuary 2021 12:00amNovember 2023 8:39ampatient has insulin pumpDocusate Sodium 100 mg capsule Pzajvuavgdqy103IDHKGntxp dailyJanuary 2021 12:00amApril 2022 12:28pm Ibuprofen 600 mg viibdgVvlqevsfqivs152TXDKVmemg 6 hours as needed for Pain April 30, 2021 12:00amApril 2022 12:28pmEnalapril Maleate (Vasotec) 20 mg NnkscqTfabtagtzphg07JGRIJdcgeOjpeynh 2021 12:00amApril 2022 12:28pmMetoprolol Succinate (Toprol Xl) 100 mg Tablet Extended Release 24 Hr Dobtpgphlabb429UYQNMglmc dailyJanuary 2021 12:00amDecember 2023 8:53pmTizanidine 4 mg CydyaoYtujllqdpsms3YOAMR2E as needed for muscle pain/spasm 300Apruary 2021 12:00amFebruary 2021 3:51pmOxycodone-Acetaminophen 5-325 mg UrctrpDbhddsvzikle0QNKYLG9O as needed for breakthrough pain, zyrvcc7492 May 05pril 2022 12:29pmAbdominal pain Unspecified abdominal painMetoclopramide Hcl (Reglan) 10 mg haprtrShcuotlqxaiy13 XXPHZ4L as needed for rstrcc2071Yjyggwd 2021 12:00amApril 2022 12:28pmOndansetron Hcl 8 mg duknkoPesmsmhmuibc4FNLNO8J8651Zrhakap 2021 12:00amFebruary 2021 1:30pmsevere nauseaMagnesium Hydroxide (Milk Of Magnesia) 400 mg/5 mL brfassiwydUsoldirtxcsd98LILODsgk times daily as needed for gacxlnhtzjlx2795Vdyikiq 2021 12:00amApril 2022 12:28pmInsulin Glargine (Lantus Solostar U-100 Insulin) 100 unit/mL (3 mL) insulin pen Fwgjeuyvajdw43TYDGKTOPJFUzponifLlncp 2022 11:00pmApril 2023 1:04pm Sennosides (Senokot) 8.6 mg TabletDiscontinued8.6MGPODaily as needed for ConstipationApril 2022 11:00pmApril 2023 1:04pmBacitracin 500 unit/gram XdgrfndhEbflmaymogth5XOKYILHLWRCRBKgopdHrowr 2022 11:00pmApril 2023 1:05pmPantoprazole (Protonix) 40 mg Tablet,Delayed Release (Dr/Ec) Fcyxaqspvopq67XRQZIxnxhLmksl 2022 11:00pmApril 2023 1:04pmFerrous Sulfate (Iron) 325 mg (65 mg iron) DhxxhlHsembgclpxnu746ZBBSTxaktQhjzr 2022 11:00pmAugust 2024 9:27amCholecalciferol (Vitamin D3) (Vitamin D3) 50 mcg (2,000 unit) OilvkhsFxffmqiryunr63AFBIEOqgjlGtkqj 2022 11:00pmApril 2023 1:04pmPosaconazole (Noxafil) 300 mg Susp,Delayed Release For Recon Rolvvokbrudj345MNVPCgoarDqmnh 2022 11:00pmApril 2023 1:05pm Posaconazole (Noxafil) 300 mg susp,delayed release for hlpwuHzkied480EWMZLyird July 16, 2023 1:04pmComplies with drug therapyFluticasone Propionate (Flonase Allergy Relief) 50 mcg/actuation spray,rovovtqitlBqbwkglvspwo0XNZMXICCLZLKHWC Twice urrmo18629Omunf 2023 11:00pmMay 2023 8:46amDysfunction of eustachian tube Unspecified Eustachian tube disorder, unspecified earadminister into each nostrilAmitriptyline 10 mg vbdcmhJgfhxtdlodau28HJYFYephp at uapztwu54246Ueffhgfs 2023 12:00amAugust 2024 9:24amHydrocortisone 2.5 % cream with perineal gaacihcsqlJmrejr3IKXJQOYF8-5 TIMES PER DAY as needed for uzumuyyoeae17 100March 2024 12:00amComplies with drug therapyLevofloxacin 250 mg tablet Kxmghj710BPZBGjewt340Jbghxken 14th, 2025 12:00amComplies with drug therapy Acetaminophen 325 mg icilmgPibijz652BHEJZqdaz 6 hoursMar 2023 11:00pm Complies with drug therapyFexofenadine 180 mg essicjEqtkdzfckndy845TYUXBjxhu as needed for allergy symptomsMar 2023 11:00pmAugust 2024 9:27am1 tablet Swallow whole with water; do not take with fruit juicesGlucagon 3 mg/actuation spray,non-wvassmvMemrymupsqra4XYBNXKHJJJBXLjijkQooqk 2023 11:00pmAugust 2024 9:27amIpratropium [address] 42 mcg (0.06 %) spray,non-dptgisvOcqejewpjpmx3COGDRZKMKGANMBBFrtya times dailyChildren[facility] 2023 11:00pmAugust 2024 9:28amLisinopril 20 mg znuxhbIhcrqpaodqcl49OVMYVyzcu July 15, 2023 11:00pmDecember 2023 10:05amLorazepam 0.5 mg tablet Discontinued0.5MGPOChildren'S Hospital Of [facility] 2023 11:00pmApril 2024 10:29am1 - 2 tablets Orally before MRIMeloxicam 15 mg cecsgtWxkdqqyboqfl31ZHGKDkxgoPhzop 2023 11:00pmApril 2023 1:46pmAmoxicillin-Pot Clavulanate 875-125 mg tablet Xiomiyvduxvi9QQSNNVfgvz 12 siejs7231Rnvk 2023 11:00pmJanuary 2024 1:17pmMupirocin Calcium 2 % khghiGefwdhviyjpz9IDNZEDXBSLCTSEjrje gmemn60040 May 22, 2024 12:00amMarch 2024 12:07pmHydrocodone-Acetaminophen 10- 325 mg rhkhmrZjtsda2ENNTXUumsi 4 hours as needed for lztl6Irtcpr 2024 11:00pmComplies with drug therapyBaclofen 10 mg afimmpMgseyk09TRTDKiiwrYgwoel 2024 11:00pm1 tablet BID for spasms, 2 tablets QHS for spasmsComplies with drug therapyDocusate Sodium (Colace) 100 mg kifpwmaErcwxf774GRQLSrksySdzrtn 2024 11:00pmComplies with drug therapyBumetanide 1 mg cvboyyIehaerrhordb1XBEN Twice dailyAugust 2024 11:00pmAugust 2024 7:06amAspirin 81 mg tablet Qtwutp45ROALNffdsFfutyy 2024 11:00pmComplies with drug therapyLactobacillus Acidophilus vyvunosCxawws27OFAPLfcugWrefbr 2024 11:00pmComplies with drug therapyOndansetron Hcl 4 mg umksfjKrygkn3NXJHXbbsw 6 hoursAugust 2024 11:00pmComplies with drug therapyMetoprolol Succinate 100 mg tablet extended release 24 scHuihbh65EJZMVzeha dailyAugust 2024 9:29amComplies with drug therapyMetronidazole 0.75 % gdjJbllzrvlgvmt8FRYAEMLBVQQRNAebbsNrlbbh 2024 11:00pmAugust 2024 10:12amPolyethylene Glycol powderDiscontinuedEACH MISCELLANEAugust 2024 11:00pmAugust 2024 7:08amCholecalciferol (Vitamin D3) 25 mcg (1,000 unit) arawgnbTnuieb18LQKWCZwkpaClupcy 2024 11:00pmComplies with drug therapyDoxycycline Hyclate 100 mg bvjcxmfZdxxjy144VHGI Ssqfm81859Wredagecg 12th, 2025 11:00amComplies with drug therapy Immunizations Immunization Event Date Not Given Reason Dose Number Manager Sterile Processing Lot Number Reason(s) Given Vaccine Information Statement (VIS) Detail Administration Location COVID-19 mRNA-1273 (Moderna) May 10, 2020 COVID-19 mRNA-1273 (Moderna)June 11OVID-19 mRNA-1273 (Moderna) February 21, 2021Influenza, seasonal, injectable, pfSeptember 2024 [id number] [facility] HospitalQuadrivalent InfluenzaOctober 2022 Vital Signs Vital Reading Result Reference Range Collection Date/Time Height 66 [in_i] December 26, 2024 10:30amHeart Rate86 /fcq82-634Ocrzzeuws 12th, 2025 10:30am Respiratory rate12 /gkx76-36Kriiepcfl 12th, 2025 10:30amBP Ezxbhhye688 mm[Hg] 100-140September 2024 10:30amBP Irgzgmksl50 mm[Hg]60-100September 2024 10:68kdRpgikf48 [in_i]December 31, 2024 10:43lhQvaavt62.57 kgSeptember 2024 10:23amBody Uptbtpwbliq67.7 [degF]97.6-99.0September 2024 10:04amHeart Rate73 /nwi26-827Aoaybegnd 2024 10:04amRespiratory rate18 /mqq74-04Ijhmaexmo 2024 10:04amBP Nggmzlxb261 mm[Hg]100-140September 2024 10:04amBP Scfgpslht04 mm[Hg]60-100September 2024 10:04amBMI (Body Mass Index)25.8 kg/b2Eeontullk 2024 10:89dkXdjxqh90 [in_i]February 27, 2025 8:51awVbersr93.66 kgNovember 2024 8:48amHeart Wove642 /wor39-357 February 27, 2025 8:48amRespiratory rate12 /ynn88-67FejnvzccFebruary 27, 2025 8:48am BP Apmbkbqq547 mm[Hg]100-140February 27, 2025 8:48amBP Ypgrtzknk45 mm[Hg] 60-100February 27, 2025 8:48amBMI (Body Mass Index)25.4 kg/g8Umgoyeml2024 8:48am Advance Directives Advance Directive Response Recorded Date/ Time Advance Directives No June 28 9:37am Insurance Providers Guarantor Khadijah Borges Address [address] [place] [id number] Info.Home Phone: Coverage Status Update:2024 Payer Group Member ID Coverage Type Subscriber Relationship to Subscriber Effective Date Expiration Date Medicare [id number] L Phillips Id: [id number] [address] [place] [id number] Home Phone: Email: Declined 8.16.19SelfHumana [facility] [id number] Borges Id: [id number] [address] [place] [id number] Home Phone: Email: Declined 8.16.19SelfUnited [facility] PFFS Id: [id number] L Phillips Id: [id number] [address] [place] [id number] Home Phone: Email: Declined 8.16.19SelfParamount Elite [facility] [id number] L Phillips Id: [id number] [address] [place] [id number] Home Phone: Email: Declined 8.16.19SelfRegular Auto/Liability [id number] Borges Id: [id number] [address] [facility] [address] Home Phone: Email: Declined 6.32.84Self Encounters Encounter Location(s) Arrival/Admit Date Discharge/Departure Date Discharge/Departure Disposition Provider(s) Departed Physician/ Provider Office Visit -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 February 27, 2025 8:40am February 27, 2025 9:12am Discharged to home care or self care (routine discharge) Ramon Poole DO Recent Diagnosis Onset Date Admit Date Chronic venous insufficiency Unknown Dec 11:22am HTN (hypertension) Unknown December 11:22am Hydrocephalus Unknown December 26, 2024 11:22am Peripheral artery disease Unknown 2024 11:22am Pressure injury of left heel, stage 1 Unknown December 26, 2024 11:22am Spastic hypertonia Unknown December 11:22am Type 1 diabetes mellitus wit h diabetic peripheral angiopathy without gangrene Unknown December 26, 2024 11:22am Type 1 diabetes mellitus with hyperglycemia Unkn own December 26, 2024 11:22am Chronic venous insufficiency Unknown Dec 11:04am Impaired mobility and ADLs Unknown 2024 11:04am Lymphedema Unknown December 31, 2024 11:04am Pressure injury of left heel, stage 3 Unknown December 31, 2024 11:04am Type 1 diabetes mellitus wit h diabetic peripheral angiopathy without gangrene Unknown December 31, 2024 11:04am Avulsion fracture of bone Unknown Novemb er 2024 8:40am Fracture of ulna, closed Unknown Novembe r 2024 8:40am UTI (urinary tract infection) Unknown No vember 2024 8:40am Assessments Diagnosis Onset Date Resolution Status Admit Date Chronic venous insufficiency acuteSeptember 2024 11:22amHTN (hypertension)acuteSept2024 11:22amHydrocephalusacuteSept2024 11:22amPeripheral artery disease acuteSept2024 11:22amPressure injury of left heel, stage 1acute December 26, 2024 11:22amSpastic hypertoniaacuteSept2024 11:22am Type 1 diabetes mellitus with diabetic peripheral angiopathy without gangrene acuteSept2024 11:22amType 1 diabetes mellitus with hyperglycemia acuteSept2024 11:22amChronic venous insufficiencyacuteSept2024 11:04amImpaired mobility and ADLsacuteSeptember 2024 11:04am LymphedemaacuteSept2024 11:04amPressure injury of left heel, stage 3 acuteSept2024 11:04amType 1 diabetes mellitus with diabetic peripheral angiopathy without gangreneacuteSeptember 2024 11:04amAvulsion fracture of boneacuteNov2024 8:40amFracture of ulna, closedacute February 27, 2025 8:40amUTI (urinary tract infection)noneactiveFebruary 27, 2025 8:40am Plan of Treatment Author Ramon Poole [facility] HospitalAuthoredSept2024 4:12pmI have instructed this patient to consume a healthy, low-fat, low-salt diet. I have also encouraged them to continue exercise with weight loss to achieve/maintain a BMI < 30. I have instructed this patient on the correct procedure for obtaining home BP measurements:? - rest for 5 minutes w/o talking. - positioned w/ feet on floor and arms supported. - average best 2/3 readings w/ goal < 135/85. - update office w/ home readings in 2 weeks. Continue Lisinopril without interruption I have instructed this patient to follow a comprehensive diabetic treatment plan. I have also instructed them to check their feet daily for calluses and nonhealing ulcers. I have instructed them to have a yearly dilated eye examination. I have reviewed their treatment goals: SBP less than 130, LDL less than 100, FBS less than 140, A1C less than 7%. I have instructed them to maintain a home BS log and bring the results to each of their office visits for review. I have explained the importance of routine monitoring of their A1C, Microalbumin and Lipids. I have explained the benefits of well controlled diabetes in preventing micro and macrovascular complications. Continue Insulin Aspart without interruption Check A1C Sedentary lifestyle, wheelchair dependent. B/L TBI 0.5 - 05/2024 Calcified arterial rodríguez artificially elevated segmental pressures. CTA: 06/2024 1. Distal bilateral lower extremity soft tissue swelling. No definite occlusion is seen involving the major vessels of the lower extremities. 2. No acute intra-abdominal process. Inspect feet daily for cuts and calluses. Consider ASA and Statin therapy CT brain pending. f/u Neurology Fall precautions, encouraged to use walker at all times. Increased lower extremity spasticity. - continue PT/OT for ROM exercises, strengthening exercises, balance therapy, gait training and proper use of assistive device Secondary to fungal meningitis, complicated by hydrocephalus. s/p FIELD RECORDER shunt placement CT brain w/o hydrocephalus - 07/2024 Continue aggressive therapy to improve MRADL. Therapy recommended a standing wheelchair to improve safety w/ standing from sitting position and to remove pressure from sacrum. I have instructed this patient to avoid salt and elevate their lower extremities. I have also recommended use of support stockings. I instructed them to inspect their legs and feet daily for blisters and ulcerations. Complicated by sedentary lifestyle, wheelchair confinement and h/o left Tib-Fib fracture. Venous US: negative for DVT - 05/2024 Restarted diuretic once N/V resolved While holding diuretic, her lower extremity edema increased significantly. Nonhealing left heel ulceration. ASCVD risk include HTN, T1DM and HLD. TBI 0.5 CTA: 06/2024 1. Distal bilateral lower extremity soft tissue swelling. No definite occlusion is seen involving the major vessels of the lower extremities. 2. No acute intra-abdominal process. Initially a stage III pressure injury. Compromised peripheral circulation delayed healing. Now close to completely healed w/o erythema, bleeding or d/c. f/u [facility]ound [facility] Future Tests Future scheduled test information is unavailable Pending Tests Pending diagnostic test information is unavailable Future Visits Future appointment information is unavailable Future Procedures Future procedure information is unavailable Future Medications Future medication information is unavailable Patient Instructions Patient instructions are unavailable
[2025-03-04] VITALS (12 sets, daily range): BP systolic 73–132; BP diastolic 45–85; PULSE 108–113; TEMP 36.7–37.2; O2SAT 92–100; BMI 27.4
--- OUTSIDE RECORDS SUMMARY | 2025-03-04 08:37 | XMS_ITS | Encounter Summary ---
Author Organization [facility] Address [address] [place] [address] Care Team Providers Care Gemologist Name Role Phone Oliva Simons MD Primary Care Provider [phone] Source Comments In the event this information is protected by the Federal Confidentiality of Alcohol and Drug AbusePatient Records regulations: The Federal rules restrict any use of the information to criminally investigate or prosecute any alcohol or drug abuse patient.[facility] Reason for Visit * MRI/CT (Urgent) - ClosedSpecialtyDiagnoses / ProceduresReferred By Contact Referred To ContactMR IMAGING Diagnoses Syringomyelia and syringobulbia (HCC) Procedures MRI THORACIC SPINE WO IVCON MRI SPINAL CANAL THORAC[place] [address] [place] [address] Phone: tel: fax: [place] [address] Referral IDStatusReasonStart DateExpiration DateVisits RequestedVisits [id number] Auto-Generated Referral Encounter Details DateTypeDepartmentCare Team (Latest Contact Info)Fmsbyxmzdyd04/19/2025 8:37 AM ESTHospital Encounter MRI Q [address] [address] Social History Tobacco UseTypesPacks/DayYears UsedDateSmoking Tobacco: NeverSmokeless Tobacco: NeverAlcohol UseStandard Drinks/WeekCommentsNot Currently0 (1 standard drink = 0.6 oz pure alcohol)[facility] UtilitiesAnswerDate RecordedIn the past 12 months has [...] steady place to sleep or slept in [place] (including now)?10/12/2023Housing Stability Vital SignAnswerDate RecordedIn the last 12 months, was there a time when you were not able to pay the mortgage or rent on time?No08/25/2024Number of Times Moved in the Last Year Not on file08/25/2024t any time in the past 12 months, were you homeless or living in a retirement (including now)?Yes08/25/2024UDIT-CAnswerDate RecordedQ1: How often do you have a drink containing alcohol?Never03/04/2025Q2: How many drinks containing alcohol do you have on a typical day when you are drinking? Patient does not drink03/04/2025Q3: How often do you have six or more drinks on one occasion?Never03/04/2025rea Deprivation IndexAnswerDate RecordedNational Score (1-100), lower number is lower xuvu821401/09/2024State Score (1-10), lower number is lower zkzx900ata from: https://www.neighborhoodatlas.medicine.[facility].edu/. Last address used for [address]/09/2024CommentsNoSex and Gender InformationValueDate RecordedSex Assigned at BirthNot on fileLegal SexFemale 03/17/2012 7:33 AM ESTGender IdentityNot on fileSexual OrientationNot on file documented as of this encounter Functional Status * AUDIT-C ScoreAnswerDate of YebbkhhdznHfdfcn102/19/2025 1:55 PM Savannah Bridges MA * QuestionAnswerDate of AssessmentAuthorQ1: How often do you have a drink containing alcohol?Never03/04/2025 1:55 PM Savannah Bridges MAQ2: How many drinks containing alcohol do you have on a typical day when you are drinking? Patient does not drink03/04/2025 1:55 PM Savannah Bridges MAQ3: How often do you have six or more drinks on one occasion?Never03/04/2025 1:55 PM Savannah Mar MA * Are you deaf or do you have serious difficulty hearing?AnswerDate of CzaiesitcqGbdxxbWw55/15/2025 11:29 AM Nivia Peña RN * Are you blind or do you have serious difficulty seeing, even when wearing glasses?AnswerDate of AortccusluEeypmkBw33/15/2025 11:29 AM Nivia Peña RN * Do you have serious difficulty walking or climbing stairs?AnswerDate of VylnquotgxMavuigXti96/15/2025 11:29 AM Nivia Peña RN * Do you have difficulty dressing or bathing?AnswerDate of AssessmentAuthorNo 08/28/2024 11:29 AM Nivia Peña RN * Because of a physical, mental, or emotional condition, do you have difficulty doing errands alone such as visiting a doctor's office or shopping?AnswerDate of YcngmhcdyvDdeqngZui12/15/2025 11:29 AM Nivia Peña RN documented as of this encounter Mental Status * Because of a physical, mental, or emotional condition, do you have serious difficulty concentrating, remembering, or making decisions?AnswerEntry Date MljrjrQm94/15/2025 11:29 AM Nivia Peña RN documented in this encounter Progress Notes * Angie Sosa MRI Tech - 03/04/2025 8:40 AM EST Radiology Service Progress Note PATIENT NAME: Khadijah Borges DATE OF SERVICE: March 04, 2025 TIME: 11:24 AM PATIENT IDENTITY VERIFICATION COMPLETED USING TWO [...] Help if Needed, Offered Assistance with Transfers/Clothing, and Instructed Patient to Remain Seated (Not on Exam Table) Until Exam PATIENT GENDER DATA: Assigned female at . status: : No status:NO. PATIENT RELEVANT IMPLANT DATA REVIEWED: Yes PATIENT PRESENTS WITH AN IMPLANTABLE OR ATTACHED BULLARD OPERATOR: No RADIOLOGY DEPARTMENT: MR; Exam(s) Completed: Spine: Cervical spine and Thoracic spine. Anesthesia: No. Aromatherapy Administered: No PERIPHERAL IV DATA: Not applicable SIGNED BY: YANCI Sharp March 04, 2025 11:24 AM documented in this encounter Plan of Treatment DateTypeDepartmentCare Team (Latest Contact Info)Ualvehghlzn14/20/2025 2:20 PM ESTPAT Pre Anesthesia [address] [place] [address] 1, Pacc [place] [address] [facility] [place] [address] CATARACT SURGERY RIGHT THEN LEFT JHWGQE5903/05/2025 3:00 PM ESTOffice Visit [facility] Ophthalmology [address] [place] [address] CATARACT SURGERY RIGHT THEN LEFT LIQZJU2803/18/2025 8:50 AM ESTHospital Encounter Ambulatory Surgery [address] [place] [address] Astrid Gaxiola MD [address] [facility] [place] [address] Combined forms of age-related cataract of right eye [H25.811]03/18/2025 8:50 AM EST - 03/18/2025 9:25 AM ESTSurgery Ambulatory Surgery [address] [facility] [place] [address] Astrid Gaxiola MD [address] [facility] [place] [address] PHACOEMULSIFICATION CATARACT IMPLANT INTRAOCULAR LENS W/O ENDOSCOPIC JXCSUDINECCIDTXZNMVVU54/10/2025 9:05 AM ESTHospital Encounter Ambulatory Surgery [address] [facility] [place] [address] Astrid Gaxiola MD [address] [facility] [address] [facility] [place] [address] Combined forms of age-related cataract of left eye [H25.812]03/25/2025 9:05 AM EST - 03/25/2025 9:40 AM ESTSurgery Ambulatory Surgery [address] [facility] [place] [address] Astrid Gaxiola MD [address] [place] [address] PHACOEMULSIFICATION CATARACT ANTERIOR IMPLANT INTRAOCULAR LENS W/O ENDOSCOPIC ZBDHQDIIXFTEGBQLZZEOJ29/18/2025 9:30 AM ESTOffice Visit [facility] [address] [place] [address] Susanna Carranza PA-C [address] [place] [address] Next available New mlybogx0705/05/2025 12:00 PM [facility]rology [address] [address] Chente Phillip MD [address] [place] [address] 6 month vv - h/o bladder cancer per cc chart05/07/2025 1:00 PM ESTOffice Visit [facility] Ophthalmology [address] [place] [address] Ulisses Kauffman MD [address] [place], [place] [id number] [facility] [address] [address] *NEW, PRE OP CLEAR PER ELIJAH, T1 PDR, DFE/OCT/OCT-A OPTOS OU r/s from 02/1205/12/2025 1:00 PM ESTOffice Visit Rehab Medicine [facility] [address] [place] [address] Noel Daniels MD [address] [place] [address] botox05/14/2025 10:15 AM ESTOffice Visit [facility] [address] [place] [address] [place] [address] [place] [address] Next available New patientNamePriorityAssociated DiagnosesDate/Time PHACOEMULSIFICATION CATARACT [...] TypeAssociated ProblemsRecent ProgressPatient-Stated?Author Autogenerated Goal Care PlanAutogenerated Chey Orellana Autogenerated Goal Care PlanAutogenerated Chey Orellana Ddocumented as of this encounter Procedures Procedure NamePriorityDate/TimeAssociated DiagnosisCommentsGLUCOSE, BLOOD (POC) Keeoyiq2803/04/2025 12:52 PM EST documented in this encounter Results * (ABNORMAL) GLUCOSE, BLOOD (POC) (03/04/2025 12:52 PM EST)ComponentValueRef RangeTest MethodAnalysis TimePerformed AtPathologist SignatureGlucose, Point of Gogr194(A)74 - 99 mg/dLUniversity Hospitals Portage Medical CenterComment: Location:[facility], [address] [place] [address], [facility] The Accu-Chek Inform II glucose meter has not been approved for testing on patients receiving intensive medical intervention or therapy and results from this point of care glucose test should not be used for patient management decisions in these cases. ??Inaccurate results may also occur from other interfering factors, such as N-acetylcysteine (blood concentrations of greater than 5mg/dL), galactose, extremes of hematocrit (<10 or >65), or high doses of ascorbic acid (vitamin C) greater than 3mg/dL. ??Consider alternate testing mechanisms (e.g. core lab, blood gas instrument) in the above situations. Specimen (Source)Anatomical Location / LateralityCollection Method / Volume Collection TimeReceived Time03/04/2025 12:52 PM EST Narrative Authorizing ProviderResult TypeResult StatusCcf ProviderPOC TESTINGFinal Result Performing OrganizationAddressCity/State/ZIP CodePhone Number [facility] POINT OF CARE [address] documented in this encounter Visit Diagnoses Not on filedocumented in this encounter Additional Health Concerns Active ProblemsNoted DateDiagnosed DateAutogenerated Jfqihxt3312/23/2024 Autogenerated Etnhfbc3712/23/2024documented as of this encounter Care Teams Team MemberRelationshipSpecialtyStart DateEnd Date Oliva Simons MD [address] [place] [address] PCP - GeneralFamily Iluomtve18/28/21 [employer] [facility] [employer]06/17/22documented as of this encounter
--- OUTSIDE RECORDS SUMMARY | 2025-03-04 08:39 | XMS_ITS | Encounter Summary ---
Author Organization [facility] Address [address] [place] [address] Care Team Providers Care [place] Name Role Phone Oliva Simons MD Primary Care Provider [phone] Source Comments In the event this information is protected by the Federal Confidentiality of Alcohol and Drug AbusePatient Records regulations: The Federal rules restrict any use of the information to criminally investigate or prosecute any alcohol or drug abuse patient.[facility] Reason for Referral * MRI/CT (Urgent) - ClosedSpecialtyDiagnoses / ProceduresReferred By Contact Referred To ContactMR IMAGING Diagnoses Syringomyelia and syringobulbia (HCC) Procedures MRI THORACIC SPINE WO IVCON MRI SPINAL CANAL THORACIC W/[place] [address] [place] [address] Phone: tel: fax: [place] [address] Referral IDStatusReasonStart DateExpiration DateVisits RequestedVisits [id number] Auto-Generated Referral * MRI/CT (Routine) - ClosedSpecialtyDiagnoses / ProceduresReferred By Contact Referred To ContactMR IMAGING Diagnoses Syringomyelia and syringobulbia (HCC) Procedures MRI CERVICAL SPINE WO IVCON MRI SPINAL CANAL [place]ERV[place] [address] [place] [address] Phone: tel: fax: MR IMAGING [facility] Referral IDStatusReasonStart DateExpiration DateVisits RequestedVisits [id number] Auto-Generated Referral Reason for Visit * MRI/CT (Urgent) - ClosedSpecialtyDiagnoses / ProceduresReferred By Contact Referred To ContactMR IMAGING Diagnoses Syringomyelia and syringobulbia (HCC) Procedures MRI THORACIC SPINE WO IVCON MRI SPINAL CANAL [place]ACIC [place] [address] [place] [address] Phone: tel: fax: MR IMAGING [facility] Referral IDStatusReasonStart DateExpiration DateVisits RequestedVisits [id number] Auto-Generated Referral Encounter Details DateTypeDepartmentCare Team (Latest Contact Info)Wjzqajgecfv81/19/2025 8:39 AM ESTHospital Encounter MRI Q [address] [place] [id number] Syringomyelia and syringobulbia (HCC) [G95.0] Social History Tobacco UseTypesPacks/DayYears UsedDateSmoking Tobacco: NeverSmokeless Tobacco: NeverAlcohol UseStandard Drinks/WeekCommentsNot Currently0 (1 standard drink = 0.6 oz pure alcohol)C UtilitiesAnswerDate RecordedIn the past 12 months has [...] steady place to sleep or slept in [place] (including now)?No10/12/2023Housing Stability Vital SignAnswerDate RecordedIn the last 12 months, was there a time when you were not able to pay the mortgage or rent on time?No08/25/2024Number of Times Moved in the Last Year Not on file08/25/2024t any time in the past 12 months, were you homeless or living in a detention (including now)?Yes08/25/2024UDIT-CAnswerDate RecordedQ1: How often do you have a drink containing alcohol?Never03/04/2025Q2: How many drinks containing alcohol do you have on a typical day when you are drinking? Patient does not drink03/04/2025Q3: How often do you have six or more drinks on one occasion?Never03/04/2025rea Deprivation IndexAnswerDate RecordedNational Score (1-100), lower number is lower [id number] Score (1-10), lower number is lower [id number] from: https://www.neighborhoodatlas.[facility].edu/. Last address used for [id number] 01/09/2024CommentsNoSex and Gender InformationValueDate RecordedSex Assigned at BirthNot on fileLegal SexFemale 03/17/2012 7:33 AM ESTGender IdentityNot on fileSexual OrientationNot on file documented as of this encounter Functional Status * AUDIT-C ScoreAnswerDate of YmhxjrvmlzAycbpn985/19/2025 1:55 PM Savannah Bridges MA * QuestionAnswerDate of AssessmentAuthorQ1: How often do you have a drink containing alcohol?Never03/04/2025 1:55 PM Savannah Bridges, MARTÍNQ2: How many drinks containing alcohol do you have on a typical day when you are drinking? Patient does not drink03/04/2025 1:55 PM Savannah Bridges, MARTÍNQ3: How often do you have six or more drinks on one occasion?Never03/04/2025 1:55 PM Savannah Mar MA * Are you deaf or do you have serious difficulty hearing?AnswerDate of EhtuayqkgwPrcsipKt01/15/2025 11:29 AM Nivia Peña RN * Are you blind or do you have serious difficulty seeing, even when wearing glasses?AnswerDate of MuggphtewkJqrrlnSo46/15/2025 11:29 AM Nivia Peña RN * Do you have serious difficulty walking or climbing stairs?AnswerDate of BkswvkrvhtMapixhYxl56/15/2025 11:29 AM Nivia Peña RN * Do you have difficulty dressing or bathing?AnswerDate of AssessmentAuthorNo 08/28/2024 11:29 AM Nivia Peña RN * Because of a physical, mental, or emotional condition, do you have difficulty doing errands alone such as visiting a doctor's office or shopping?AnswerDate of TdhekaguodFonwwkBan05/15/2025 11:29 AM Nivia Peña RN documented as of this encounter Mental Status * Because of a physical, mental, or emotional condition, do you have serious difficulty concentrating, remembering, or making decisions?AnswerEntry Date IdcfjaFq24/15/2025 11:29 AM Nivia Peña RN documented in this encounter Plan of Treatment DateTypeDepartmentCare Team (Latest Contact Info)Pnwtihbfmdp07/20/2025 2:20 PM ESTPAT Pre Anesthesia [address] [place] [place] [address] 1, Pacc [place] [address] [facility] [place] [address] CATARACT SURGERY RIGHT THEN LEFT MXQKNC8203/05/2025 3:00 PM ESTOffice Visit OPHT Ophthalmology [address] [place] [address] CATARACT SURGERY RIGHT THEN LEFT NEZQGZ3003/18/2025 8:50 AM ESTHospital Encounter Ambulatory Surgery [address] [facility] [place] [address] Astrid Gaxiola MD [address] [facility] [address] [place] [address] Combined forms of age-related cataract of right eye [H25.811]03/18/2025 8:50 AM EST - 03/18/2025 9:25 AM ESTSurgery Ambulatory Surgery [address] [facility] [place] [address] Astrid Gaxiola MD [address] [facility] [place] [address] PHACOEMULSIFICATION CATARACT IMPLANT INTRAOCULAR LENS W/O ENDOSCOPIC GWRNMPSXPRYKDLWOIDBVO87/10/2025 9:05 AM ESTHospital Encounter Ambulatory Surgery [address] [facility] [place] [address] Astrid Gaxiola MD [address] [facility] [place] [address] Combined forms of age-related cataract of left eye [H25.812]03/25/2025 9:05 AM EST - 03/25/2025 9:40 AM ESTSurgery Ambulatory Surgery [address] [place] [address] Astrid Gaxiola MD [address] [place] [address] PHACOEMULSIFICATION CATARACT ANTERIOR IMPLANT INTRAOCULAR LENS W/O ENDOSCOPIC GNFUERDDGSVCJMGLISPBN52/18/2025 9:30 AM ESTOffice Visit Pending Sale To [facility] [address] [place] [address] Susanna Carranza PAGianlucaC [address] [place] [address] Next available New xiedssg0205/05/2025 12:00 PM [facility]rology [address] [address] Chente Phillip MD [address] [place] [address] 6 month vv - h/o bladder cancer per cc chart05/07/2025 1:00 PM ESTOffice Visit OPHT Ophthalmology [address] [place] [address] Ulisses Kauffman MD [address] [place] [address] Diagnostics, [facility] [address] [address] *NEW, PRE OP CLEAR PER ELIJAH, T1 PDR, DFE/OCT/OCT-A OPTOS OU r/s from 02/1205/12/2025 1:00 PM ESTOffice Visit Rehab Medicine [facility] [address] [place] [address] Noel Daniels MD [address] [place] [address] botox01 10:15 AM ESTOffice Visit Pending Sale To [facility] [address] [place] [address] [place] [address] [place] [address] Next available New patientNamePriorityAssociated DiagnosesDate/Time PHACOEMULSIFICATION CATARACT [...] TypeAssociated ProblemsRecent ProgressPatient-Stated?Author Autogenerated Goal Care PlanAutogenerated ProblemNoZelekChey Autogenerated Goal Care PlanAutogenerated ProblemNoZelekChey Ddocumented as of this encounter Procedures Procedure NamePriorityDate/TimeAssociated DiagnosisCommentsMRI THORACIC SPINE WO KUHWOLcuqohe37/19/2025 12:24 PM EST Syringomyelia and syringobulbia (HCC) MRI CERVICAL SPINE WO NZNGMYdwlnbf53/19/2025 12:24 PM EST Syringomyelia and syringobulbia (HCC) documented in this encounter Results * MRI THORACIC SPINE WO IVCON (03/04/2025 12:24 PM EST)Anatomical Region LateralityModalityT-spineMagnetic ResonanceSpecimen (Source)Anatomical Location / LateralityCollection Method / VolumeCollection TimeReceived Time 03/04/2025 12:24 PM EST Impressions 03/04/2025 2:47 PM EST IMPRESSION: 1. ??GROSSLY STABLE LOCULATED COLLECTION VENTRAL TO THE CERVICOTHORACIC CORD WITH ASSOCIATED MASS EFFECT AND ASSOCIATED INTRINSIC CORD SIGNAL ABNORMALITY. 2. ??STATUS POST T5-T6 LAMINECTOMY. 3. ??STABLE MILD DEGENERATIVE CHANGES OF THE CERVICAL AND THORACIC SPINE WITHOUT HIGH-GRADE CANAL OR FORAMINAL NARROWING. Cervical Anatomic Variant: ??None. ??Assume 7 cervical vertebrae with counting from the craniocervical junction. Anatomic Thoracic/Lumbar Variant: None. ??L4-5 is considered the level of the iliac crest and assume there are 5 lumbar-type vertebrae. 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: PSCB ?? Transcribe Date/Time: Mar 04 2025 12:28P Dictated by : RASHID HAAS MD This examination was interpreted and the report reviewed and electronically signed by: MILTON THEODORE MD on Mar 04 2025 ??2:45PM ??EST Narrative 03/04/2025 2:47 PM EST * * *Final Report* * * DATE OF EXAM: Mar 04 2025 12:24PM ?? QBM ?? 0325 ??- ??MRI THORACIC SPINE WO IVCON ??/ PROCEDURE REASON: Syringomyelia and syringobulbia (HCC) ? 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 ??Imaging for reevaluation. TECHNIQUE: Routine cervical and thoracic spine MR protocol without gadolinium. ??MQ: ??MRCTWO_3 COMPARISON: MRI cervical spine 08/26/2024, MRI thoracic and cervical spines on 10/18/2023 and 05/09/2023 RESULT: CERVICAL: Counting reference: ??Craniocervical junction. ?? Anatomic Variants: ??None. Localizer images: ??No additional findings. Alignment: ?? Straightening of normal cervical lordosis with minimal reversal centered at C4. Craniocervical junction: ?Craniocervical junction is normal. Cord: ??Redemonstrated ventral intradural, extramedullary collection along the cervicothoracic spine spanning approximately C6-C7 to T2-T3, not significantly changed compared to last exam completely visualized on 10/18/2023. ??There is unchanged localized mass effect on the ventral cord with associated ventral cord flattening spanning these levels. ??Grossly stable mild STIR/T2 hyperintense intrinsic cord signal abnormality extending from C5-C6 inferiorly to the thoracic cord. 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 ??No evidence of pathologic marrow infiltration. ??No evidence of prior fracture. Cervical soft tissues: ?The paraspinal soft tissues are within normal limits. C2-C3: Canal and foramina are patent. C3-C4: Canal and foramina are patent. C4-C5: Posterior disc osteophyte complex, facet/uncovertebral arthropathy results in mild canal narrowing without significant foraminal narrowing. C5-C6: Posterior disc osteophyte complex, facet/uncovertebral arthropathy result in mild canal narrowing without significant foraminal narrowing. C6-C7: Posterior disc osteophyte complex with superimposed right paracentral disc protrusion and facet/uncovertebral arthropathy results in rightward ventral cord abutment without significant canal narrowing or foraminal narrowing. C7-T1: Canal and foramina are patent. THORACIC: Counting reference: ??Craniocervical and lumbosacral junctions ??For the purposes of this report, ??L4-5 is considered the level of the iliac crest and assume there are 5 lumbar-type vertebrae. ??Anatomic variant: ??None. Localizer images: ??T2 hyperintense right inferior presumed hepatic cyst. ?? T2 hyperintense presumed renal cysts. Postoperative changes: Status post T5-T6 laminectomy. Alignment: ?? Alignment is anatomic. ??Multilevel disc space height loss. ?? Multilevel Schmorl's nodes. Cord: ??Redemonstrated ventral intradural, extra medullary collection along the cervical thoracic spine standing C6-C7 to T2-T3, not significantly changed compared to 10/18/2023. ??There is associated localized mass effect on the ventral cord with flattening and standing at these levels. ??Grossly stable substantial STIR/T2 hyperintense intrinsic cord signal abnormality extending to T7-T8. Bone marrow signal/fracture: ?No evidence of pathologic marrow infiltration. ??Mild chronic superior endplate compression deformity of T5 (approximately 10% height loss). ??No evidence of prior fracture. Thoracic soft tissues: ?Postoperative changes in the dorsal soft tissue at T5-T6. Canal and foramina: ?? Mild degenerative changes without significant canal or foraminal narrowing. Procedure Note Provider, [facility] - 03/04/2025 * * *Final Report* * * DATE OF EXAM: Mar 04 2025 12:24PM QBM 0325 - MRI THORACIC SPINE WO IVCON / PROCEDURE REASON: Syringomyelia and syringobulbia (HCC) * * * * Physician Interpretation * * * * EXAMINATION: MRI THORACIC SPINE WO IVCON, MRI CERVICAL SPINE WO IVCON CLINICAL HISTORY: Bladder cancer diagnosed in April 2021 status post cystectomy, communicating hydrocephalus status post SENIOR CLINICIAN shunt placement, loculated arachnoid collection along the central lower cervical/upper thoracic with associated intrinsic cord signal abnormality. Imaging for reevaluation. TECHNIQUE: Routine cervical and thoracic spine MR protocol without gadolinium. MQ: MRCTWO_3 COMPARISON: MRI cervical spine 08/26/2024, MRI thoracic and cervical spines on 10/18/2023 and 05/09/2023 RESULT: CERVICAL: Counting reference: Craniocervical junction. Anatomic Variants:None. Localizer images: No additional findings. Alignment: Straightening of normal cervical lordosis with minimal reversal centered at C4. Craniocervical junction: Craniocervical junction is normal. Cord: Redemonstrated ventral intradural, extramedullary collection along the cervicothoracic spine spanning approximately C6-C7 to T2-T3, not significantly changed compared to last exam completely visualized on 10/18/2023. There is unchanged localized mass effect on the ventral cord with associated ventral cord flattening spanning these levels. Grossly stable mild STIR/T2 hyperintense intrinsic cord signal abnormality extending from C5-C6 inferiorly to the thoracic cord. 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 No evidence of pathologic marrow infiltration. No evidence of prior fracture. Cervical soft tissues: The paraspinal soft tissues are within normal limits. C2-C3: Canal and foramina are patent. C3-C4: Canal and foramina are patent. C4-C5: Posterior disc osteophyte complex, facet/uncovertebral arthropathy results in mild canal narrowing without significant foraminal narrowing. C5-C6: Posterior disc osteophyte complex, facet/uncovertebral arthropathy result in mild canal narrowing without significant foraminal narrowing. C6-C7: Posterior disc osteophyte complex with superimposed right paracentral disc protrusion and facet/uncovertebral arthropathy results in rightward ventral cord abutment without significant canal narrowing or foraminal narrowing. C7-T1: Canal and foramina are patent. THORACIC: Counting reference: Craniocervical and lumbosacral junctions For the purposes of this report, L4-5 is considered the level of the iliac crest and assume there are 5 lumbar-type vertebrae. Anatomic variant: None. Localizer images: T2 hyperintense right inferior presumed hepatic cyst. T2 hyperintense presumed renal cysts. Postoperative changes: Status post T5-T6 laminectomy. Alignment: Alignment is anatomic. Multilevel disc space height loss. Multilevel Schmorl's nodes. Cord: Redemonstrated ventral intradural, extra medullary collection along the cervical thoracic spine standing C6-C7 to T2-T3, not significantly changed compared to 10/18/2023. There is associated localized mass effect on the ventral cord with flattening and standing at these levels. Grossly stable substantial STIR/T2 hyperintense intrinsic cord signal abnormality extending to T7-T8. Bone marrow signal/fracture: No evidence of pathologic marrow infiltration. Mild chronic superior endplate compression deformity of T5 (approximately 10% height loss). No evidence of prior fracture. Thoracic soft tissues: Postoperative changes in the dorsal soft tissue at T5-T6. Canal and foramina: Mild degenerative changes without significant canal or foraminal narrowing. IMPRESSION IMPRESSION: 1. GROSSLY STABLE LOCULATED COLLECTION VENTRAL TO THE CERVICOTHORACIC CORD WITH ASSOCIATED MASS EFFECT AND ASSOCIATED INTRINSIC CORD SIGNAL ABNORMALITY. 2. STATUS POST T5-T6 LAMINECTOMY. 3. STABLE MILD DEGENERATIVE CHANGES OF THE CERVICAL AND THORACIC SPINE WITHOUT HIGH-GRADE CANAL OR FORAMINAL NARROWING. Cervical Anatomic Variant: None. Assume 7 cervical vertebrae with counting from the craniocervical junction. Anatomic Thoracic/Lumbar Variant: None. L4-5 is considered the level of the iliac crest and assume there are 5 lumbar-type vertebrae. 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: SUMA Transcribe Date/Time: Mar 04 2025 12:28P Dictated by : RASHID HAAS MD This examination was interpreted and the report reviewed and electronically signed by: MILTON THEODORE MD on Mar 04 2025 2:45PM EST Authorizing ProviderResult TypeResult StatusSarel Roque Barksdale [facility] Final Result * MRI CERVICAL SPINE WO IVCON (03/04/2025 12:24 PM EST)Anatomical Region LateralityModalityC-spineMagnetic ResonanceSpecimen (Source)Anatomical Location / LateralityCollection Method / VolumeCollection TimeReceived Time 03/04/2025 12:24 PM EST Impressions 03/04/2025 2:47 PM EST IMPRESSION: 1. ??GROSSLY STABLE LOCULATED COLLECTION VENTRAL TO THE CERVICOTHORACIC CORD WITH ASSOCIATED MASS EFFECT AND ASSOCIATED INTRINSIC CORD SIGNAL ABNORMALITY. 2. ??STATUS POST T5-T6 LAMINECTOMY. 3. ??STABLE MILD DEGENERATIVE CHANGES OF THE CERVICAL AND THORACIC SPINE WITHOUT HIGH-GRADE CANAL OR FORAMINAL NARROWING. Cervical Anatomic Variant: ??None. ??Assume 7 cervical vertebrae with counting from the craniocervical junction. Anatomic Thoracic/Lumbar Variant: None. ??L4-5 is considered the level of the iliac crest and assume there are 5 lumbar-type vertebrae. 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: PSCB ?? Transcribe Date/Time: Mar 04 2025 12:28P Dictated by : RASHID HAAS MD This examination was interpreted and the report reviewed and electronically signed by: MILTON THEODORE MD on Mar 04 2025 ??2:45PM ??EST Narrative 03/04/2025 2:47 PM EST * * *Final Report* * * DATE OF EXAM: Mar 04 2025 12:24PM ?? QBM ?? [id number] ??- ??MRI CERVICAL SPINE WO IVCON ??/ PROCEDURE REASON: Syringomyelia and syringobulbia (HCC) ? 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 ??Imaging for reevaluation. TECHNIQUE: Routine cervical and thoracic spine MR protocol without gadolinium. ??MQ: ??MRCTWO_3 COMPARISON: MRI cervical spine 08/26/2024, MRI thoracic and cervical spines on 10/18/2023 and 05/09/2023 RESULT: CERVICAL: Counting reference: ??Craniocervical junction. ?? Anatomic Variants: ??None. Localizer images: ??No additional findings. Alignment: ?? Straightening of normal cervical lordosis with minimal reversal centered at C4. Craniocervical junction: ?Craniocervical junction is normal. Cord: ??Redemonstrated ventral intradural, extramedullary collection along the cervicothoracic spine spanning approximately C6-C7 to T2-T3, not significantly changed compared to last exam completely visualized on 10/18/2023. ??There is unchanged localized mass effect on the ventral cord with associated ventral cord flattening spanning these levels. ??Grossly stable mild STIR/T2 hyperintense intrinsic cord signal abnormality extending from C5-C6 inferiorly to the thoracic cord. 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 ??No evidence of pathologic marrow infiltration. ??No evidence of prior fracture. Cervical soft tissues: ?The paraspinal soft tissues are within normal limits. C2-C3: Canal and foramina are patent. C3-C4: Canal and foramina are patent. C4-C5: Posterior disc osteophyte complex, facet/uncovertebral arthropathy results in mild canal narrowing without significant foraminal narrowing. C5-C6: Posterior disc osteophyte complex, facet/uncovertebral arthropathy result in mild canal narrowing without significant foraminal narrowing. C6-C7: Posterior disc osteophyte complex with superimposed right paracentral disc protrusion and facet/uncovertebral arthropathy results in rightward ventral cord abutment without significant canal narrowing or foraminal narrowing. C7-T1: Canal and foramina are patent. THORACIC: Counting reference: ??Craniocervical and lumbosacral junctions ??For the purposes of this report, ??L4-5 is considered the level of the iliac crest and assume there are 5 lumbar-type vertebrae. ??Anatomic variant: ??None. Localizer images: ??T2 hyperintense right inferior presumed hepatic cyst. ?? T2 hyperintense presumed renal cysts. Postoperative changes: Status post T5-T6 laminectomy. Alignment: ?? Alignment is anatomic. ??Multilevel disc space height loss. ?? Multilevel Schmorl's nodes. Cord: ??Redemonstrated ventral intradural, extra medullary collection along the cervical thoracic spine standing C6-C7 to T2-T3, not significantly changed compared to 10/18/2023. ??There is associated localized mass effect on the ventral cord with flattening and standing at these levels. ??Grossly stable substantial STIR/T2 hyperintense intrinsic cord signal abnormality extending to T7-T8. Bone marrow signal/fracture: ?No evidence of pathologic marrow infiltration. ??Mild chronic superior endplate compression deformity of T5 (approximately 10% height loss). ??No evidence of prior fracture. Thoracic soft tissues: ?Postoperative changes in the dorsal soft tissue at T5-T6. Canal and foramina: ?? Mild degenerative changes without significant canal or foraminal narrowing. Procedure Note Provider, [facility] - 03/04/2025 * * *Final Report* * * DATE OF EXAM: Mar 04 2025 12:24PM BM [id number] - MRI CERVICAL SPINE WO IVCON / PROCEDURE REASON: Syringomyelia and syringobulbia (HCC) * * * * Physician Interpretation * * * * EXAMINATION: MRI THORACIC SPINE WO IVCON, MRI CERVICAL SPINE WO IVCON CLINICAL HISTORY: Bladder cancer diagnosed in April 2021 status post cystectomy, communicating hydrocephalus status post SENIOR CLINICIAN shunt placement, loculated arachnoid collection along the central lower cervical/upper thoracic with associated intrinsic cord signal abnormality. Imaging for reevaluation. TECHNIQUE: Routine cervical and thoracic spine MR protocol without gadolinium. MQ: MRCTWO_3 COMPARISON: MRI cervical spine 08/26/2024, MRI thoracic and cervical spines on 10/18/2023 and 05/09/2023 RESULT: CERVICAL: Counting reference: Craniocervical junction. Anatomic Variants:None. Localizer images: No additional findings. Alignment: Straightening of normal cervical lordosis with minimal reversal centered at C4. Craniocervical junction: Craniocervical junction is normal. Cord: Redemonstrated ventral intradural, extramedullary collection along the cervicothoracic spine spanning approximately C6-C7 to T2-T3, not significantly changed compared to last exam completely visualized on 10/18/2023. There is unchanged localized mass effect on the ventral cord with associated ventral cord flattening spanning these levels. Grossly stable mild STIR/T2 hyperintense intrinsic cord signal abnormality extending from C5-C6 inferiorly to the thoracic cord. 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 No evidence of pathologic marrow infiltration. No evidence of prior fracture. Cervical soft tissues: The paraspinal soft tissues are within normal limits. C2-C3: Canal and foramina are patent. C3-C4: Canal and foramina are patent. C4-C5: Posterior disc osteophyte complex, facet/uncovertebral arthropathy results in mild canal narrowing without significant foraminal narrowing. C5-C6: Posterior disc osteophyte complex, facet/uncovertebral arthropathy result in mild canal narrowing without significant foraminal narrowing. C6-C7: Posterior disc osteophyte complex with superimposed right paracentral disc protrusion and facet/uncovertebral arthropathy results in rightward ventral cord abutment without significant canal narrowing or foraminal narrowing. C7-T1: Canal and foramina are patent. THORACIC: Counting reference: Craniocervical and lumbosacral junctions For the purposes of this report, L4-5 is considered the level of the iliac crest and assume there are 5 lumbar-type vertebrae. Anatomic variant: None. Localizer images: T2 hyperintense right inferior presumed hepatic cyst. T2 hyperintense presumed renal cysts. Postoperative changes: Status post T5-T6 laminectomy. Alignment: Alignment is anatomic. Multilevel disc space height loss. Multilevel Schmorl's nodes. Cord: Redemonstrated ventral intradural, extra medullary collection along the cervical thoracic spine standing C6-C7 to T2-T3, not significantly changed compared to 10/18/2023. There is associated localized mass effect on the ventral cord with flattening and standing at these levels. Grossly stable substantial STIR/T2 hyperintense intrinsic cord signal abnormality extending to T7-T8. Bone marrow signal/fracture: No evidence of pathologic marrow infiltration. Mild chronic superior endplate compression deformity of T5 (approximately 10% height loss). No evidence of prior fracture. Thoracic soft tissues: Postoperative changes in the dorsal soft tissue at T5-T6. Canal and foramina: Mild degenerative changes without significant canal or foraminal narrowing. IMPRESSION IMPRESSION: 1. GROSSLY STABLE LOCULATED COLLECTION VENTRAL TO THE CERVICOTHORACIC CORD WITH ASSOCIATED MASS EFFECT AND ASSOCIATED INTRINSIC CORD SIGNAL ABNORMALITY. 2. STATUS POST T5-T6 LAMINECTOMY. 3. STABLE MILD DEGENERATIVE CHANGES OF THE CERVICAL AND THORACIC SPINE WITHOUT HIGH-GRADE CANAL OR FORAMINAL NARROWING. Cervical Anatomic Variant: None. Assume 7 cervical vertebrae with counting from the craniocervical junction. Anatomic Thoracic/Lumbar Variant: None. L4-5 is considered the level of the iliac crest and assume there are 5 lumbar-type vertebrae. 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: [employer] Transcribe Date/Time: Mar 04 2025 12:28P Dictated by : RASHID HAAS MD This examination was interpreted and the report reviewed and electronically signed by: MILTON THEODORE MD on Mar 04 2025 2:45PM EST Authorizing ProviderResult TypeResult StatusSarel Roque Barksdale [facility] Final Result documented in this encounter Visit Diagnoses Diagnosis Syringomyelia and syringobulbia (HCC) Syringomyelia and syringobulbia Combined forms of age-related cataract of right eye Other and combined forms of senile cataract Combined forms of age-related cataract of left eye Other and combined forms of senile cataract documented in this encounter Additional Health Concerns Active ProblemsNoted DateDiagnosed DateAutogenerated Vyjricv8912/23/2024 Autogenerated Cczkyfw6012/23/2024documented as of this encounter Care Teams Team MemberRelationshipSpecialtyStart DateEnd Date Oliva Simons MD [address] [place] [address] PCP - GeneralFamily Wgoabtkn62/28/21 [place] [employer] Community Resource06/17/22documented as of this encounter
--- OUTSIDE RECORDS SUMMARY | 2025-03-04 08:39 | XMS_ITS | Encounter Summary ---
Author Organization [facility] Address [address] [place] [address] Care Team Providers Care Spring Coiler Hand Name Role Phone Oliva Simons MD Primary Care Provider [phone] Source Comments In the event this information is protected by the Federal Confidentiality of Alcohol and Drug AbusePatient Records regulations: The Federal rules restrict any use of the information to criminally investigate or prosecute any alcohol or drug abuse patient.[facility] Reason for Visit * MRI/CT (Urgent) - ClosedSpecialtyDiagnoses / ProceduresReferred By Contact Referred To ContactMR IMAGING Diagnoses Syringomyelia and syringobulbia (HCC) Procedures MRI THORACIC SPINE WO IVCON MRI SPINAL CANAL THORAC[place] [address] [place] [address] Phone: tel: fax: [place] [address] Referral IDStatusReasonStart DateExpiration DateVisits RequestedVisits [id number] Auto-Generated Referral Encounter Details DateTypeDepartmentCare Team (Latest Contact Info)Jljfrzzmlxf23/19/2025 8:39 AM ESTHospital Encounter MRI Q [address] [address] Social History Tobacco UseTypesPacks/DayYears UsedDateSmoking Tobacco: NeverSmokeless Tobacco: NeverAlcohol UseStandard Drinks/WeekCommentsNot Currently0 (1 standard drink = 0.6 oz pure alcohol)[facility] UtilitiesAnswerDate RecordedIn the past 12 months has [...] steady place to sleep or slept in [place] (including now)?10/12/2023Housing Stability Vital SignAnswerDate RecordedIn the last 12 months, was there a time when you were not able to pay the mortgage or rent on time?No08/25/2024Number of Times Moved in the Last Year Not on file08/25/2024t any time in the past 12 months, were you homeless or living in a mcfp (including now)?Yes08/25/2024UDIT-CAnswerDate RecordedQ1: How often do you have a drink containing alcohol?Never03/04/2025Q2: How many drinks containing alcohol do you have on a typical day when you are drinking? Patient does not drink03/04/2025Q3: How often do you have six or more drinks on one occasion?Never03/04/2025rea Deprivation IndexAnswerDate RecordedNational Score (1-100), lower number is lower wkof470801/09/2024State Score (1-10), lower number is lower nmsp275ata from: https://www.neighborhoodatlas.medicine.[facility].edu/. Last address used for [address]/09/2024CommentsNoSex and Gender InformationValueDate RecordedSex Assigned at BirthNot on fileLegal SexFemale 03/17/2012 7:33 AM ESTGender IdentityNot on fileSexual OrientationNot on file documented as of this encounter Functional Status * AUDIT-C ScoreAnswerDate of XuvgpkcrbiLsvqwy294/19/2025 1:55 PM Savannah Bridges MA * QuestionAnswerDate [...] do you have serious difficulty hearing?AnswerDate of XyleujuttpOjilfvVb57/15/2025 11:29 AM Nivia Peña RN * Are you blind or do you have serious difficulty seeing, even when wearing glasses?AnswerDate of GaqtrlijlpUynznwEc18/15/2025 11:29 AM Nivia Peña RN * Do you have serious difficulty walking or climbing stairs?AnswerDate of HwwayprjolFxfhaeDek01/15/2025 11:29 AM Nivia Peña RN * Do you have difficulty dressing or bathing?AnswerDate of AssessmentAuthorNo 08/28/2024 11:29 AM Nivia Peña RN * Because of a physical, mental, or emotional condition, do you have difficulty doing errands alone such as visiting a doctor's office or shopping?AnswerDate of JfgqxlucrhLbvghpMrf36/15/2025 11:29 AM Nivia Peña RN documented as of this encounter Mental Status * Because of a physical, mental, or emotional condition, do you have serious difficulty concentrating, remembering, or making decisions?AnswerEntry Date XjpxdwDo73/15/2025 11:29 AM Nivia Peña RN documented in this encounter Plan of Treatment DateTypeDepartmentCare Team (Latest Contact Info)Vrzthfrutjg13/20/2025 2:20 PM ESTPAT Pre Anesthesia [address] [place] [address] 1, Pacc [place] [address] [place] [address] CATARACT SURGERY RIGHT THEN LEFT LYFFUU4003/05/2025 3:00 PM ESTOffice Visit OPHT Ophthalmology [address] [place] [address] CATARACT SURGERY RIGHT THEN LEFT HIIAGJ1703/18/2025 8:50 AM ESTHospital Encounter Ambulatory Surgery [address] [place] [address] Astrid Gaxiola MD [address] [place] [address] Combined forms of age-related cataract of right eye [H25.811]03/18/2025 8:50 AM EST - 03/18/2025 9:25 AM ESTSurgery Ambulatory Surgery [address] [place] [address] Astrid Gaxiola MD [address] [place] [place] [address] PHACOEMULSIFICATION CATARACT IMPLANT INTRAOCULAR LENS W/O ENDOSCOPIC MYEHCXAQEMYNSXMYVPIGQ98/10/2025 9:05 AM ESTHospital Encounter Ambulatory Surgery [address] [facility] [place] [address] Astrid Gaxiola MD [address] [place] [address] Combined forms of age-related cataract of left eye [H25.812]03/25/2025 9:05 AM EST - 03/25/2025 9:40 AM ESTSurgery Ambulatory Surgery [address] [place] [address] Astrid Gaxiola MD [address] [facility] [place] [address] PHACOEMULSIFICATION CATARACT ANTERIOR IMPLANT INTRAOCULAR LENS W/O ENDOSCOPIC VMRKJCSRVPUGINWVKZEAY93/18/2025 9:30 AM ESTOffice Visit [facility] [address] [place] [address] Susanna Carranza PAGianlucaC [address] [place] [address] Next available New kwzeocl0905/05/2025 12:00 PM [facility] Urology [address] [address] Chente Phillip MD [address] [place] [address] 6 month vv - h/o bladder cancer per cc chart05/07/2025 1:00 PM ESTOffice Visit [facility] Ophthalmology [address] [place] [address] Ulisses Kauffman MD [address] [place] [address] Diagnostics, [facility] [address] [address] *NEW, PRE OP CLEAR PER ELIJAH, T1 PDR, DFE/OCT/OCT-A OPTOS OU r/s from 02/1205/12/2025 1:00 PM ESTOffice Visit Rehab Medicine [facility] [address] [place] [address] Noel Daniels MD [address], [place] [address] botox05/14/2025 10:15 AM ESTOffice Visit [facility] [address] [place] [address] [place] [address] [place] [address] Next available New patientNamePriorityAssociated DiagnosesDate/Time PHACOEMULSIFICATION CATARACT [...] Chey Orellana Ddocumented as of this encounter Visit Diagnoses Not on filedocumented in this encounter Additional Health Concerns Active ProblemsNoted DateDiagnosed DateAutogenerated Easgezy8712/23/2024 Autogenerated Wpbuhqv7012/23/2024documented as of this encounter Care Teams Team MemberRelationshipSpecialtyStart DateEnd Date Oliva Simons MD [address] [place] [address] PCP - GeneralFamily Xvblgjfw90/28/21 [place] [employer] Ralf Community Resource06/17/22documented as of this encounter
--- OUTSIDE RECORDS SUMMARY | 2025-03-04 11:45 | XMS_ITS | Encounter Summary ---
Author Organization [facility] Address [facility] [place] [address] Care Team Providers Care Software Security Architect Name Role Phone Oliva Simons MD Primary Care Provider [phone] Source Comments In the event this information is protected by the Federal Confidentiality of Alcohol and Drug AbusePatient Records regulations: The Federal rules restrict any use of the information to criminally investigate or prosecute any alcohol or drug abuse patient.[facility] Reason for Visit * ReasonCommentsEstablished Patient Encounter Details DateTypeDepartmentCare Team (Latest Contact Info)Sugwmbmdkdl34/19/2025 11:45 AM ESTOffice Visit [facility] [address] [place] [address] Susanna Carranza PA-C [address] [place] [address] Syringomyelia and syringobulbia (HCC) (Primary Dx) Social History Tobacco UseTypesPacks/DayYears UsedDateSmoking Tobacco: NeverSmokeless Tobacco: NeverAlcohol UseStandard Drinks/WeekCommentsNot Currently0 (1 standard drink = 0.6 oz pure alcohol)[facility] UtilitiesAnswerDate RecordedIn the past 12 [...] steady place to sleep or slept in [facility] (including now)?No10/12/2023Housing Stability Vital SignAnswerDate RecordedIn the last 12 months, was there a time when you were not able to pay the mortgage or rent on time?No08/25/2024Number of Times Moved in the Last Year Not on file08/25/2024t any time in the past 12 months, were you homeless or living in a chcf (including now)?Yes08/25/2024UDIT-CAnswerDate RecordedQ1: How often do you have a drink containing alcohol?Never03/04/2025Q2: How many drinks containing alcohol do you have on a typical day when you are drinking? Patient does not drink03/04/2025Q3: How often do you have six or more drinks on one occasion?Never03/04/2025rea Deprivation IndexAnswerDate RecordedNational Score (1-100), lower number is lower vlqq557101/09/2024State Score (1-10), lower number is lower qdmv181ata from: https://www.neighborhoodatlas.[facility].edu/. Last address used for [address]/09/[address]24CommentsNoSex and Gender InformationValueDate RecordedSex Assigned at BirthNot on fileLegal SexFemale 03/17/2012 7:33 AM ESTGender IdentityNot on fileSexual OrientationNot on file documented as of this encounter Last Filed Vital Signs Vital SignReadingTime TakenCommentsBlood Thhbfhsh343/5503/04/2025 1:56 PM EST provider lxnznmfiFvafu70453/19/2025 1:56 PM ESTprovider sjhlwhmsYhqwaconaib20.6 ??C (99.6 ??F)03/04/2025 1:56 PM ESTprovider notifiedRespiratory Rate18 03/04/2025 1:56 PM ESTOxygen Kumfcjyfen67%03/04/2025 1:56 PM ESTInhaled Oxygen Concentration--Weight--Height--Body Mass Index--documented in this encounter Functional Status * AUDIT-C ScoreAnswerDate of JvlbdcquhbAcreln019/19/2025 1:55 PM Savannah Bridges MA * QuestionAnswerDate [...] do you have serious difficulty hearing?AnswerDate of EhyrwybksiJosbqkUw60/15/2025 11:29 AM Nivia Peña RN * Are you blind or do you have serious difficulty seeing, even when wearing glasses?AnswerDate of XenhbkaulvUlbakwVl56/15/2025 11:29 AM Nivia Peña RN * Do you have serious difficulty walking or climbing stairs?AnswerDate of FbxzhoeyfeOfyyiqCti52/15/2025 11:29 AM Nivia Peña RN * Do you have difficulty dressing or bathing?AnswerDate of AssessmentAuthorNo 08/28/2024 11:29 AM Nivia Peña RN * Because of a physical, mental, or emotional condition, do you have difficulty doing errands alone such as visiting a doctor's office or shopping?AnswerDate of LtmdvhxobuFkukknQve28/15/2025 11:29 AM Nivia Peña RN documented as of this encounter Mental Status * Because of a physical, mental, or emotional condition, do you have serious difficulty concentrating, remembering, or making decisions?AnswerEntry Date MzhpnwNc59/15/2025 11:29 AM Nivia Peña RN documented in this encounter Progress Notes * Susanna Carranza PA-C - 03/04/2025 2:14 PM EST Here for shunt adjustment after MRI. Susanna Carranza PA-C * Savannah Fisher MA - 03/04/2025 1:59 PM EST Additional intake questions: Has the patient had fever, nausea, vomiting, diarrhea, constipation, fatigue for > 1 week? Yes, nausea and Provider Notified Does the patient have a decreased appetite? Yes Does patient want to see a Shovel Handle Assembler? No (yes to any of above refer patient to schedulers for dietitian appointment) ) Does patient have any new or increased numbness or tingling of extremities? No Is patient interested in fertility information? No Does patient need any prescription refills? No Does patient have an advanced directive in place? Yes, copies are in Epic Electronically Signed By: Savannah Fisher MA documented in this encounter Plan of Treatment DateTypeDepartmentCare Team (Latest Contact Info)Ovjhznzarxq61/20/2025 2:20 PM ESTPAT Pre Anesthesia [address] [place] [address] 1, Pacc [place] [address] [place] [address] CATARACT SURGERY RIGHT THEN LEFT APVLEM9803/05/2025 3:00 PM ESTOffice Visit [facility]HT Ophthalmology [address] [place] [address] CATARACT SURGERY RIGHT THEN LEFT DODZVU5603/18/2025 8:50 AM ESTHospital Encounter Ambulatory Surgery [address] [place] [address] Astrid Gaxiola MD [address] [facility] [place] [place] [address] Combined forms of age-related cataract of right eye [H25.811]03/18/2025 8:50 AM EST - 03/18/2025 9:25 AM ESTSurgery Ambulatory Surgery [address] [place] [address] Astrid Gaxiola MD [address] [facility] [place] [address] PHACOEMULSIFICATION CATARACT IMPLANT INTRAOCULAR LENS W/O ENDOSCOPIC RAMSDJPKPICIZETGGYGWJ97/10/2025 9:05 AM ESTHospital Encounter Ambulatory Surgery [address] [facility] [place] [address] Astrid Gaxiola MD [address] [facility] [place] [address] Combined forms of age-related cataract of left eye [H25.812]03/25/2025 9:05 AM EST - 03/25/2025 9:40 AM ESTSurgery Ambulatory Surgery [address] [facility] [place] [address] Astrid Gaxiola MD [address] [place] [address] PHACOEMULSIFICATION CATARACT ANTERIOR IMPLANT INTRAOCULAR LENS W/O ENDOSCOPIC QUSGXWZGKZFEZKGLPYCQS28/18/2025 9:30 AM ESTOffice Visit [facility] [place] [address] [place] [address] Susanna Carranza, PA-C [address] [place] [address] Next available New scgcclq1005/05/2025 12:00 PM [facility] Urology [address] [address] Chente Phillip MD [address] [place] [address] 6 month vv - h/o bladder cancer per cc chart05/07/2025 1:00 PM ESTOffice Visit [facility] Ophthalmology [address] [place] [address] Ulisses Kauffman MD [address] [place], [place] [id number] Diagnostics, [facility] [address] [address] *NEW, PRE OP CLEAR PER ELIJAH, T1 PDR, DFE/OCT/OCT-A OPTOS OU r/s from 02/1205/12/2025 1:00 PM ESTOffice Visit Rehab Medicine [facility] [address] [place] [address] Noel Daniels MD [address] [place] [address] botox05/14/2025 10:15 AM ESTOffice Visit [facility] [place] [address] [place] [address] [place] [address] [place] [address] Next available New patientNamePriorityAssociated DiagnosesDate/Time PHACOEMULSIFICATION CATARACT [...] ProgressPatient-Stated?Author Autogenerated Goal Care PlanAutogenerated Chey Orellana D Autogenerated Goal Care PlanAutogenerated Chey Orellana Ddocumented as of this encounter Visit Diagnoses Diagnosis Syringomyelia and syringobulbia (HCC)- Primary Syringomyelia and syringobulbia Combined forms of age-related cataract of right eye Other and combined forms of senile cataract Combined forms of age-related cataract of left eye Other and combined forms of senile cataract documented in this encounter Additional Health Concerns Active ProblemsNoted DateDiagnosed DateAutogenerated Cqajfqj6612/23/2024 Autogenerated Wrllfli5212/23/2024documented as of this encounter Care Teams Team MemberRelationshipSpecialtyStart DateEnd Date Oliva Simons MD [address] [place] [address] PCP - GeneralFamily Yidunaeq10/28/21 [place] [employer] Ralf Community Resource06/17/22documented as of this encounter
--- NOTE | 2025-03-04 21:22 | CT_ITS ---
[address] [address] Patient Name: CHIKIS TOBAR MRN: [id number] date: 1965 Sex: F Assigned Patient Location: ER Current Patient Location: ED.[facility] Accession/Order Number: [id number] Exam Date: 03/04/2025 22:00 Report Date: 03/04/2025 22:44 At the request of: MAURILIO ARIAS MD Procedure: CT abdomen pelvis w con CT Abdomen and Pelvis withcontrast TECHNIQUE: Axial imaging with 2-D reconstruction. The CT exam was performed using one or more the following dose reduction techniques: Automated exposure control, adjustment of the MA and/or Kv according to patient size, or use of the iterative reconstruction technique. COMPARISON: 06/24/2023 History: Abdominal pain. Nausea and vomiting for 3 days LIMITATIONS: None LOWER THORAX mild atelectasis. Small hiatal hernia. LIVER: Unremarkable GALLBLADDER: No gallbladder abnormality identified. BILE DUCTS: No dilatation SPLEEN: Unremarkable PANCREAS: Atrophic changes. ADRENAL GLANDS: Unremarkable KIDNEYS:Ileal conduit. No obstruction or nephrolithiasis. AORTA: No abdominal aortic aneurysm identified. RETROPERITONEUM: No significant retroperitoneal abnormalities identified. MESENTERY:Unremarkable STOMACH:Unremarkable SMALL BOWEL: The small bowel loops are nondistended. APPENDIX: The appendix is normal. COLON: Unremarkable REPRODUCTIVE SYSTEM: Reproductive structures are unremarkable. PNEUMOPERITONEUM: None PERITONEAL FLUID:None BONY STRUCTURES: Unremarkable ABDOMINAL WALL: Fat-containing midline ventral wall hernia. CT/CT abdomen pelvis w con IMPRESSION: No focal inflammatory changes. No bowel obstruction. Impression dictated by: Chip Flores M.D. 03/04/2025 10:44 PM Dictation Location: [employer] Electronically authenticated by: [id number] Y Date: 03/04/2025 22:44
--- NOTE | 2025-03-04 21:24 | PC.NURSE ---
Pt reports no BM for 4 days and h/o twisted bowel. Pt has a urostomy and reports only having 400mls urine output since last night. pt states she was at the [facility] for an appt today and her Bp was 60's / 30's with low grade fevers and was sent home from her appt. Pt has a right wrist fracture from last wk and has an appt with orhto tomorrow. Pt states she has a DOCKMASTER shunt and has been vomiting for 3 days.
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
[2025-03-04 21:51] LABS: Hematocrit 34.2 % (36.0-48.0); Hemoglobin 11.7 g/dL (12.0-16.0); Mean Corpuscular HGB Conc 34.2 g/dL (29.9-35.2); Mean Corpuscular Hemoglobin 30.2 pg (26.7-34.0); Mean Corpuscular Volume 88.4 fL (81.0-99.0); Platelet Count 237 10^3/uL (150-450); Red Blood Count 3.87 10^6/uL (4.20-5.40); White Blood Count 23.1 10^3/uL (4.0-11.0)
[2025-03-04] MEDS: 0.9 % SODIUM CHLORIDE 1,779 ML 593 ML IV (21:59)
--- OUTSIDE RECORDS SUMMARY | 2025-03-04 22:03 | XMS_ITS | Encounter Summary ---
Author Organization [facility] Address [address] [place] [id number] Care Team Providers Care Surgical Aides Teacher Name Role Phone Oliva Simons MD Primary Care Provider [phone] Source Comments In the event this information is protected by the Federal Confidentiality of Alcohol and Drug AbusePatient Records regulations: The Federal rules restrict any use of the information to criminally investigate or prosecute any alcohol or drug abuse patient.[facility] Encounter Details DateTypeDepartmentCare Team (Latest Contact Info)Wuqwqemgfdg29/17/2025 [place] [address] Provider, [facility] MRI Screening Questionnaire Completion Required Social History Tobacco UseTypesPacks/DayYears UsedDateSmoking Tobacco: NeverSmokeless Tobacco: NeverAlcohol UseStandard Drinks/WeekCommentsNot Currently0 (1 standard drink = 0.6 oz pure alcohol)[facility] UtilitiesAnswerDate RecordedIn the past 12 months has the [employer], gas, oil, or water [employer] threatened to shut off services in your home?No08/25/2024Overall Financial Resource Strain (CARDIA)AnswerDate Recorded How hard is it for you to pay for the very basics like food, housing, medical care, and heating?Not hard at all3PHQ-2AnswerDate RecordedPHQ-2 score0 10/22/2024Hunger Vital SignAnswerDate RecordedWithin the [...] steady place to sleep or slept in [facility] (including now)?No10/12/2023Housing Stability Vital SignAnswerDate RecordedIn the last 12 months, was there a time when you were not able to pay the mortgage or rent on time?No08/25/2024Number of Times Moved in the Last Year Not on file08/25/2024t any time in the past 12 months, were you homeless or living in a intermediate (including now)?Yes08/25/2024UDIT-CAnswerDate RecordedQ1: How often do you have a drink containing alcohol?Never03/04/2025Q2: How many drinks containing alcohol do you have on a typical day when you are drinking? Patient does not drink03/04/2025Q3: How often do you have six or more drinks on one occasion?Never03/04/2025rea Deprivation IndexAnswerDate RecordedNational Score (1-100), lower number is lower irbn936201/09/2024State Score (1-10), lower number is lower xzis307ata from: https://www.neighborhoodatlas.medicine.[facility]/. Last address used for [id number]CommentsNoSex and Gender InformationValueDate RecordedSex Assigned at BirthNot on fileLegal SexFemale 03/17/2012 7:33 AM ESTGender IdentityNot on fileSexual OrientationNot on file documented as of this encounter Functional Status * AUDIT-C ScoreAnswerDate of YgrnmnmiruHguetx354/19/2025 1:55 PM Savannah Bridges MA * QuestionAnswerDate [...] do you have serious difficulty hearing?AnswerDate of OglkpjdumoGloxzjLq16/15/2025 11:29 AM Nivia Peña RN * Are you blind or do you have serious difficulty seeing, even when wearing glasses?AnswerDate of ViaqkfachyZdgxzgYz73/15/2025 11:29 AM Nivia Peña RN * Do you have serious difficulty walking or climbing stairs?AnswerDate of KhpiiajgznFnybnpJlf14/15/2025 11:29 AM Nivia Peña RN * Do you have difficulty dressing or bathing?AnswerDate of AssessmentAuthorNo 08/28/2024 11:29 AM Nivia Peña RN * Because of a physical, mental, or emotional condition, do you have difficulty doing errands alone such as visiting a doctor's office or shopping?AnswerDate of NjwjojffyvBedtrlCqp41/15/2025 11:29 AM Nivia Peña RN documented as of this encounter Mental Status * Because of a physical, mental, or emotional condition, do you have serious difficulty concentrating, remembering, or making decisions?AnswerEntry Date PwjhcoMi20/15/2025 11:29 AM Nivia Peña RN documented in this encounter Plan of Treatment DateTypeDepartmentCare Team (Latest Contact Info)Wxmxqxxyydl41/20/2025 2:20 PM ESTPAT Pre Anesthesia [address] [place] [address] 1, Pacc Owen [address] [place] [address] CATARACT SURGERY RIGHT THEN LEFT QVTWGH1803/05/2025 3:00 PM ESTOffice Visit [facility] Ophthalmology [address] [place] [address] CATARACT SURGERY RIGHT THEN LEFT EKWSIT8403/18/2025 8:50 AM ESTHospital Encounter Ambulatory Surgery [address] [place] [address] Astrid Gaxiola MD [address] [place] [address] Combined forms of age-related cataract of right eye [H25.811]03/18/2025 8:50 AM EST - 03/18/2025 9:25 AM ESTSurgery Ambulatory Surgery [address] [place] [address] Astrid Gaxiola MD [address] [place] [address] PHACOEMULSIFICATION CATARACT IMPLANT INTRAOCULAR LENS W/O ENDOSCOPIC PMIJQPWYDJPKELZROUVTI05/10/2025 9:05 AM ESTHospital Encounter Ambulatory Surgery [address] [place] [address] Astrid Gaxiola MD [address] [place] [address] Combined forms of age-related cataract of left eye [H25.812]03/25/2025 9:05 AM EST - 03/25/2025 9:40 AM ESTSurgery Ambulatory Surgery [address] [place] [address] Astrid Gaxiola MD [address] [place] [address] PHACOEMULSIFICATION CATARACT ANTERIOR IMPLANT INTRAOCULAR LENS W/O ENDOSCOPIC PVGMPISSYFWYZBDCKFTWR54/18/2025 9:30 AM ESTOffice Visit [facility] [place] [address] [place] [address] Susanna Carranza PA-C [address] [place] [address] Next available New lxldupx0605/05/2025 12:[address] [facility] Urology [address] [address] Chente Phillip MD [address] [place] [address] 6 month vv - h/o bladder cancer per cc chart05/07/2025 1:00 PM ESTOffice Visit [facility] Ophthalmology [address] [place] [address] Ulisses Kauffman MD [address] [place] [address] Diagnostics[facility] [address] [address] *NEW, PRE OP CLEAR PER ELIJAH, T1 PDR, DFE/OCT/OCT-A OPTOS OU r/s from 02/1205/12/2025 1:00 PM ESTOffice Visit Rehab Medicine [facility] [address] [place] [address] Noel Daniels MD [address] [place] [address] botox05/14/2025 10:15 AM ESTOffice Visit [facility] [place] [address] [place] [address] [place] [address] [place] [address] Next available New patientNamePriorityAssociated DiagnosesDate/Time PHACOEMULSIFICATION CATARACT [...] TypeAssociated ProblemsRecent ProgressPatient-Stated?Author Autogenerated Goal Care PlanAutogenerated ProblemNoZelek, Chey D Autogenerated Goal Care PlanAutogenerated ProblemNoZelek, Chye Ddocumented as of this encounter Visit Diagnoses Not on filedocumented in this encounter Additional Health Concerns Active ProblemsNoted DateDiagnosed DateAutogenerated Sqtadrg0112/23/2024 Autogenerated Dbaovex8312/23/2024documented as of this encounter Care Teams Team MemberRelationshipSpecialtyStart DateEnd Date Oliva Simons MD [address] [place] [address] PCP - GeneralFamily Ilgghoiu96/28/21 [employer] [place] [facility]06/17/22documented as of this encounter
--- OUTSIDE RECORDS SUMMARY | 2025-03-04 22:03 | XMS_ITS | Encounter Summary ---
Author Organization [facility] Address [facility] [place] [address] Care Team Providers Care Head Tennis Coach Name Role Phone Oliva Simons MD Primary Care Provider [phone] Source Comments In the event this information is protected by the Federal Confidentiality of Alcohol and Drug AbusePatient Records regulations: The Federal rules restrict any use of the information to criminally investigate or prosecute any alcohol or drug abuse patient.[facility] Encounter Details DateTypeDepartmentCare Team (Latest Contact Info)Vmcyvsypcsg90/19/2025Procedure [facility] [address] [phone] Susanna Carranza PA-C [address] [place] [address] Social History Tobacco UseTypesPacks/DayYears UsedDateSmoking Tobacco: NeverSmokeless Tobacco: NeverAlcohol UseStandard Drinks/WeekCommentsNot Currently0 (1 standard drink = 0.6 oz pure alcohol)[facility] UtilitiesAnswerDate RecordedIn the past 12 months has the electric, gas, oil, or water [place] threatened to shut off services in your [...] steady place to sleep or slept in [place] (including now)?No10/12/2023Housing Stability Vital SignAnswerDate RecordedIn the last 12 months, was there a time when you were not able to pay the mortgage or rent on time?No08/25/2024Number of Times Moved in the Last Year Not on file08/25/2024t any time in the past 12 months, were you homeless or living in a residential (including now)?Yes08/25/2024UDIT-CAnswerDate RecordedQ1: How often do you have a drink containing alcohol?Never03/04/2025Q2: How many drinks containing alcohol do you have on a typical day when you are drinking? Patient does not drink03/04/2025Q3: How often do you have six or more drinks on one occasion?Never03/04/2025rea Deprivation IndexAnswerDate RecordedNational Score (1-100), lower number is lower [id number] Score (1-10), lower number is lower slod3344Data from: https://www.neighborhoodatlas.medicine.[facility].edu/. Last address used for [address]4CommentsNoSex and Gender InformationValueDate RecordedSex Assigned at BirthNot on fileLegal SexFemale 03/17/2012 7:33 AM ESTGender IdentityNot on fileSexual OrientationNot on file documented as of this encounter Functional Status * AUDIT-C ScoreAnswerDate of QsbfbkqivkGmbjbt333/19/2025 1:55 PM Savannah Bridges MA * QuestionAnswerDate [...] do you have serious difficulty hearing?AnswerDate of BdddmorgryUcrxfsHe95/15/2025 11:29 AM Nivia Peña RN * Are you blind or do you have serious difficulty seeing, even when wearing glasses?AnswerDate of IvyndpbzcnQxbmtwOq61/15/2025 11:29 AM Nivia Peña RN * Do you have serious difficulty walking or climbing stairs?AnswerDate of ZjcjpbubkpSnciomVqz08/15/2025 11:29 AM Nivia Peña RN * Do you have difficulty dressing or bathing?AnswerDate of AssessmentAuthorNo 08/28/2024 11:29 AM Nivia Peña RN * Because of a physical, mental, or emotional condition, do you have difficulty doing errands alone such as visiting a doctor's office or shopping?AnswerDate of RprcjthiqhQzziwgLhu61/15/2025 11:29 AM Nivia Peña RN documented as of this encounter Mental Status * Because of a physical, mental, or emotional condition, do you have serious difficulty concentrating, remembering, or making decisions?AnswerEntry Date SrgpwjBx41/15/2025 11:29 AM Nivia Peña RN documented in this encounter Progress Notes * Susanna Carranza PA-C - 03/04/2025 2:15 PM EST PROGRAMMABLE SHUNT CHANGE CC: shunt adjustment after mri HPI: INFORMED CONSENT Khadijah Borges [id number] Procedure: Shunt reprogramming The risks, benefits and anticipated outcomes of the procedure, the risks and benefits of the alternatives to the procedure and the roles and tasks of the personnel to be involved were discussed with the patient and the patient consents to the procedure and agrees to proceed. I verify that I personally obtained Khadijah Borges's consent. Susanna Carranza PA-C March 04, 2025 2:15 PM Shunt Location: R occipital Valve Type: Certas Current Valve Setting: Certas: uknown Valve Adjusted/New Setting: Certas: 8 Magnetic confirmation received with operating systems programmer Patient tolerated procedure well without any complications. Susanna Carranza PA-C [facility] March 04, 2025 2:15 PM documented in this encounter Plan of Treatment DateTypeDepartmentCare Team (Latest Contact Info)Ocdrxtpbhsy55/20/2025 2:20 PM ESTPAT Pre Anesthesia [address] [place] [address] 1, Pacc [place] [address] [facility] [place] [address] CATARACT SURGERY RIGHT THEN LEFT WSXVTE0903/05/2025 3:00 PM ESTOffice Visit OPHT Ophthalmology [address] [place] [address] CATARACT SURGERY RIGHT THEN LEFT ENAFHK3903/18/2025 8:50 AM ESTHospital Encounter Ambulatory Surgery [address] [place] [address] Astrid Gaxiola MD [address] [place] [address] Combined forms of age-related cataract of right eye [H25.811]03/18/2025 8:50 AM EST - 03/18/2025 9:25 AM ESTSurgery Ambulatory Surgery [address] [place] [address] Astrid Gaxiola MD [address] [facility] [place] [address] PHACOEMULSIFICATION CATARACT IMPLANT INTRAOCULAR LENS W/O ENDOSCOPIC IOCZCNHXFCFXLTUOAUQFO04/10/2025 9:05 AM ESTHospital Encounter Ambulatory Surgery [address] [place] [address] Astrid Gaxiola MD [address] [facility] [place] [address] Combined forms of age-related cataract of left eye [H25.812]03/25/2025 9:05 AM EST - 03/25/2025 9:40 AM ESTSurgery Ambulatory Surgery [address] [place] [address] Astrid Gaxiola MD [address] [facility] [address] PHACOEMULSIFICATION CATARACT ANTERIOR IMPLANT INTRAOCULAR LENS W/O ENDOSCOPIC DMFCQKWKYONLZUMFICIUI17/18/2025 9:30 AM ESTOffice Visit [facility] [address] [place] [address] Susanna Carranza PA-C [address] [place] [address] Next available New psznojx3405/05/2025 12:00 PM [facility] Urology [address] [address] Chente Phillip MD [address]658 [place] [address] 6 month vv - h/o bladder cancer per cc chart05/07/2025 1:00 PM ESTOffice Visit OPHT Ophthalmology [address] [place] [address] Ulisses Kauffman MD [address] [place] [address] Diagnostics, [facility] [address] [address] *NEW, PRE OP CLEAR PER ELIJAH, T1 PDR, DFE/OCT/OCT-A OPTOS OU r/s from 02/1205/12/2025 1:00 PM ESTOffice Visit Rehab Medicine [facility] [address] [place] [address] Noel Daniels MD [address] [place] [address] botox05/14/2025 10:15 AM ESTOffice Visit [facility] [address] [place] [address] [place] [address] [place] [address] Next available New patientNamePriorityAssociated DiagnosesDate/Time PHACOEMULSIFICATION CATARACT [...] as of this encounter Visit Diagnoses Diagnosis Cyst, arachnoid- Primary 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
--- OUTSIDE RECORDS SUMMARY | 2025-03-04 22:03 | XMS_ITS | Clinical Summary ---
Author Organization [facility] Address [address] [place] [address] Phone Care Team Providers Care Monitoring Tech Name Role Phone Unavailable Primary Care Provider Unavailabl e Social History Tobacco UseTypesPacks/DayYears UsedDateSmoking Tobacco: Never Assessed CommentsUnknownSex and Gender InformationValueDate RecordedSex Assigned at Not on fileLegal XqkMvdglc49/26/2022 10:23 AM ESTGender IdentityNot on file Sexual OrientationNot on file Last Filed Vital Signs Vital SignReadingTime TakenCommentsBlood Gdhleijl358/7307 3:05 PM EDT Eyugj7892/12/2022 3:05 PM EDTTemperature--Respiratory Rate--Oxygen Bpceyxnnfr31% 10/25/2021 3:05 PM EDTInhaled Oxygen Concentration--Iacwgk16.5 kg (140 lb) 10/25/2021 3:05 PM HCABrvuas249.6 cm (5' 6 )10/25/2021 3:05 PM EDTBody Mass Index22.607 3:05 PM EDT Plan of Treatment Health MaintenanceDue DateLast DoneCommentsCT Hrlrguzqaeva91/14/1967Colonoscopy 1966Colorectal Cancer Rdipvhojr78/14/1967FIT-DNA (Cologuard)1966FIT 1966HIV Rskhmukgo27/14/1967Lipid Panel1966 1914Twbgxitkuxguh15/14/1967TSH Level1966Yearly Adult Pughjwxm13/14/1967MMR Vaccines (1 of 1 - Standard series)1967Hepatitis C Dnwuxarfx42/14/1985Hepatitis B Vaccines (1 of 3 - 19+ 3-dose series)1985Cervical Cancer Hrbnuwwoq41/14/1988HPV/Cotest 1987Pap Smear1987DTaP/Tdap/Td Vaccines (1 - Tdap)1988Mammogram 2006Pneumococcal [...]
--- OUTSIDE RECORDS SUMMARY | 2025-03-04 22:03 | XMS_ITS | Encounter Summary ---
Author Organization [facility] Address [address] [place] [address] Care Team Providers Care Pressroom Worker Name Role Phone Oliva Simons MD Primary Care Provider [phone] Source Comments In the event this information is protected by the Federal Confidentiality of Alcohol and Drug AbusePatient Records regulations: The Federal rules restrict any use of the information to criminally investigate or prosecute any alcohol or drug abuse patient.[facility] Reason for Visit * ReasonCommentsRadiology Pre Procedure Instructions Encounter Details DateTypeDepartmentCare Team (Latest Contact Info)Zorzdwggjwo49/18/2025Telephone MRI Q [address] [id number] Rosa Parra, housing quality standard inspector Pre Procedure Instructions Social History Tobacco UseTypesPacks/DayYears UsedDateSmoking Tobacco: NeverSmokeless Tobacco: NeverAlcohol UseStandard Drinks/WeekCommentsNot Currently0 (1 standard drink = 0.6 oz pure alcohol)[facility] UtilitiesAnswerDate RecordedIn the past 12 months [...] steady place to sleep or slept in [facility] (including now)?No10/12/2023Housing Stability Vital SignAnswerDate RecordedIn the last 12 months, was there a time when you were not able to pay the mortgage or rent on time?No08/25/2024Number of Times Moved in the Last Year Not on file08/25/2024t any time in the past 12 months, were you homeless or living in a [place] [facility] (including now)?Yes08/25/2024UDIT-CAnswerDate RecordedQ1: How often do you have a drink containing alcohol?Never03/04/2025Q2: How many drinks containing alcohol do you have on a typical day when you are drinking? Patient does not drink03/04/2025Q3: How often do you have six or more drinks on one occasion?Never03/04/2025rea Deprivation IndexAnswerDate RecordedNational Score (1-100), lower number is lower qsun023901/09/2024State Score (1-10), lower number is lower recp235ata from: https://www.neighborhoodatlas.[facility].edu/. Last address used for [address]/09/2024CommentsNoSex and Gender InformationValueDate RecordedSex Assigned at BirthNot on fileLegal SexFemale 03/17/2012 7:33 AM ESTGender IdentityNot on fileSexual OrientationNot on file documented as of this encounter Functional Status * Are you deaf or do you have serious difficulty hearing?AnswerDate of CmrtyvqqepLpkawyHt82/15/2025 11:29 AM Nivia Peña RN * Are you blind or do you have serious difficulty seeing, even when wearing glasses?AnswerDate of HkmtkybktvAfhyipMf00/15/2025 11:29 AM Nivia Peña RN * Do you have serious difficulty walking or climbing stairs?AnswerDate of YoqglagmcvPvlarqMni02/15/2025 11:29 AM Nivia Peña RN * Do you have difficulty dressing or bathing?AnswerDate of AssessmentAuthorNo 08/28/2024 11:29 AM Nivia Peña RN * Because of a physical, mental, or emotional condition, do you have difficulty doing errands alone such as visiting a doctor's office or shopping?AnswerDate of PtqjwhcrvxUxsxrzGkn96/15/2025 11:29 AM Nivia Peña RN documented as of this encounter Mental Status * Because of a physical, mental, or emotional condition, do you have serious difficulty concentrating, remembering, or making decisions?AnswerEntry Date JbjevtTi58/15/2025 11:29 AM Nivia Peña RN documented in this encounter Miscellaneous Notes * Telephone Encounter - Rosa Parra RN - 03/03/2025 1:09 PM EST Radiology Service Pre Anesthesia Telephone Call PATIENT NAME: Khadijah Borges DATE OF CALL: March 03, 2025 TIME: 1:09 PM Called the patient to remind them they will need to have a driver license examiner with them for their MRI with anxiolysis tomorrow 03/04, pt. States she will have a driver license examiner and that she hasn't been able to drive for a few years now. All questions were answered and a call back number was provided. SIGNED BY: Rosa Parra RN March 03, 2025 1:09 PM documented in this encounter Plan of Treatment DateTypeDepartmentCare Team (Latest Contact Info)Mcmgeudhnzq04/20/2025 2:20 PM ESTPAT Pre Anesthesia [address] [place] [address] 1, Pacc [place] [address] [place] [address] CATARACT SURGERY RIGHT THEN LEFT EUIGZM1303/05/2025 3:00 PM ESTOffice Visit OPHT Ophthalmology [address] [place] [address] CATARACT SURGERY RIGHT THEN LEFT KJRYKW7703/18/2025 8:50 AM ESTHospital Encounter Ambulatory Surgery [address] [place] [address] Astrid Gaxiola MD [address] [facility] [address] [facility] [place] [address] Combined forms of age-related cataract of right eye [H25.811]03/18/2025 8:50 AM EST - 03/18/2025 9:25 AM ESTSurgery Ambulatory Surgery [address] [facility] [place] [address] Astrid Gaxiola MD [address] [facility] [address] [facility] [place] [address] PHACOEMULSIFICATION CATARACT IMPLANT INTRAOCULAR LENS W/O ENDOSCOPIC YWQQWFNXJPXKVVTAUTXLU86/10/2025 9:05 AM ESTHospital Encounter Ambulatory Surgery [address] [place] [address] Astrid Gaxiola MD [address] [facility] [address] [facility] [place] [address] Combined forms of age-related cataract of left eye [H25.812]03/25/2025 9:05 AM EST - 03/25/2025 9:40 AM ESTSurgery Ambulatory Surgery [address] [place] [address] Astrid Gaxiola MD [address] [place] [address] PHACOEMULSIFICATION CATARACT ANTERIOR IMPLANT INTRAOCULAR LENS W/O ENDOSCOPIC IUEIHRDKCOHFTDJNZGWRL42/18/2025 9:30 AM ESTOffice Visit [facility] [address] [place] [address] Susanna Carranza PA-C [address] [place] [address] Next available New fydxfkv7705/05/2025 12:00 PM [facility] Urology [address] [address] Chente Phillip MD [address] [place] [address] 6 month vv - h/o bladder cancer per cc chart05/07/2025 1:00 PM ESTOffice Visit OPHT Ophthalmology [address] [place] [address] Ulisses Kauffman MD [address] [place] [address] Diagnostics, [facility] [address] [address] *NEW, PRE OP CLEAR PER ELIJAH, T1 PDR, DFE/OCT/OCT-A OPTOS OU r/s from 02/1205/12/2025 1:00 PM ESTOffice Visit Rehab Medicine [facility] [address] [place] [address] Noel Daniels MD [address] [place] [address] botox05/14/2025 10:15 AM ESTOffice Visit [facility] [address] [place] [address] [place] [address] [place] [address] Next available New patientNamePriorityAssociated DiagnosesDate/Time PHACOEMULSIFICATION CATARACT [...] Chey D Autogenerated Goal Care PlanAutogenerated ProblemNoZelek, Chey Ddocumented as of this encounter Visit Diagnoses Not on filedocumented in this encounter Additional Health Concerns Active ProblemsNoted DateDiagnosed DateAutogenerated Ngnxqxa6212/23/2024 Autogenerated Vecdppu6112/23/2024documented as of this encounter Care Teams Team MemberRelationshipSpecialtyStart DateEnd Date Oliva Simons MD [address] [place] [address] PCP - GeneralFamily Wwdhmoew47/28/21 [employer] Ralf Community Resource06/17/22documented as of this encounter
--- OUTSIDE RECORDS SUMMARY | 2025-03-04 22:03 | XMS_ITS | Encounter Summary ---
Author Organization [facility] Address [address] [place] [address] Care Team Providers Care Second Hand Paper Machine Name Role Phone Oliva Simons MD Primary Care Provider [phone] Source Comments In the event this information is protected by the Federal Confidentiality of Alcohol and Drug AbusePatient Records regulations: The Federal rules restrict any use of the information to criminally investigate or prosecute any alcohol or drug abuse patient.[facility] Encounter Details DateTypeDepartmentCare Team (Latest Contact Info)Ipbpwurxvlo30/19/2025Travel Social History Tobacco UseTypesPacks/DayYears UsedDateSmoking Tobacco: NeverSmokeless Tobacco: NeverAlcohol UseStandard Drinks/WeekCommentsNot Currently0 (1 standard drink = 0.6 oz pure alcohol)[facility] UtilitiesAnswerDate RecordedIn the past 12 [...] steady place to sleep or slept in [facility] (including now)?No10/12/2023Housing Stability Vital SignAnswerDate RecordedIn the last 12 months, was there a time when you were not able to pay the mortgage or rent on time?No08/25/2024Number of Times Moved in the Last Year Not on file08/25/2024t any time in the past 12 months, were you homeless or living in a senior living (including now)?Yes08/25/2024UDIT-CAnswerDate RecordedQ1: How often do you have a drink containing alcohol?Never03/04/2025Q2: How many drinks containing alcohol do you have on a typical day when you are drinking? Patient does not drink03/04/2025Q3: How often do you have six or more drinks on one occasion?Never03/04/2025rea Deprivation IndexAnswerDate RecordedNational Score (1-100), lower number is lower lndt622301/09/2024State Score (1-10), lower number is lower eixs767ata from: https://www.neighborhoodatlas.medicine.[facility].edu/. Last address used for [address] 4CommentsNoSex and Gender InformationValueDate RecordedSex Assigned at BirthNot on fileLegal SexFemale 03/17/2012 7:33 AM ESTGender IdentityNot on fileSexual OrientationNot on file documented as of this encounter Functional Status * AUDIT-C ScoreAnswerDate of FtkjygtqcdKisvsa403/19/2025 1:55 PM Savannah Bridges MA * QuestionAnswerDate [...] do you have serious difficulty hearing?AnswerDate of RpcquwnvyyJpazwwXa13/15/2025 11:29 AM Nivia Peña RN * Are you blind or do you have serious difficulty seeing, even when wearing glasses?AnswerDate of MazarxvdkkFgwhlpJy50/15/2025 11:29 AM Nivia Peña RN * Do you have serious difficulty walking or climbing stairs?AnswerDate of KdqrimmpykVurbhkYdh75/15/2025 11:29 AM Nivia Peña RN * Do you have difficulty dressing or bathing?AnswerDate of AssessmentAuthorNo 08/28/2024 11:29 AM Nivia Peña RN * Because of a physical, mental, or emotional condition, do you have difficulty doing errands alone such as visiting a doctor's office or shopping?AnswerDate of LjnmxwomgsNivfqfJek94/15/2025 11:29 AM Nivia Peña RN documented as of this encounter Mental Status * Because of a physical, mental, or emotional condition, do you have serious difficulty concentrating, remembering, or making decisions?AnswerEntry Date SfouieSv03/15/2025 11:29 AM Nivia Peña RN documented in this encounter Plan of Treatment DateTypeDepartmentCare Team (Latest Contact Info)Wkgqtdkkpbn42/20/2025 2:20 PM ESTPAT Pre Anesthesia [address] [place] [address] 1, Pacc [place] [address] [place] [address] CATARACT SURGERY RIGHT THEN LEFT WPJIEA7303/05/2025 3:00 PM ESTOffice Visit OPHT Ophthalmology [address] [place] [address] CATARACT SURGERY RIGHT THEN LEFT BBEURI7703/18/2025 8:50 AM ESTHospital Encounter Ambulatory Surgery [address] [place] [address] Astrid Gaxiola MD [address] [facility] [place] [address] Combined forms of age-related cataract of right eye [H25.811]03/18/2025 8:50 AM EST - 03/18/2025 9:25 AM ESTSurgery Ambulatory Surgery [address] [place] [address] Astrid Gaxiola MD [address] [facility] [place] [address] PHACOEMULSIFICATION CATARACT IMPLANT INTRAOCULAR LENS W/O ENDOSCOPIC LDGPAZRLHSTJJCIRZJFJS59/10/2025 9:05 AM ESTHospital Encounter Ambulatory Surgery [address] [place] [address] Astrid Gaxiola MD [address] [facility] [place] [address] Combined forms of age-related cataract of left eye [H25.812]03/25/2025 9:05 AM EST - 03/25/2025 9:40 AM ESTSurgery Ambulatory Surgery [address] [place] [address] Astrid Gaxiola MD [address] [facility] [place] [address] PHACOEMULSIFICATION CATARACT ANTERIOR IMPLANT INTRAOCULAR LENS W/O ENDOSCOPIC PLBPQSYUJYNTJDZXBODGV75/18/2025 9:30 AM ESTOffice Visit [facility] [address] [place] [address] Susanna Carranza PA-C [address] [place] [address] Next available New zibfmsm4605/05/2025 12:00 PM [facility] Urology [address] [address] Chente Phillip MD [address]00 [place] [address] 6 month vv - h/o bladder cancer per cc chart05/07/2025 1:00 PM ESTOffice Visit OPHT Ophthalmology 57[address] [place] [address] Ulisses Kauffman MD [address] [place] [address] Diagnostics, [facility] [address] [address] *NEW, PRE OP CLEAR PER ELIJAH, T1 PDR, DFE/OCT/OCT-A OPTOS OU r/s from 02/1205/12/2025 1:00 PM ESTOffice Visit Rehab Medicine [facility] [address] [place] [address] Noel Daniels MD [address] [place] [address] botox05/14/2025 10:15 AM ESTOffice Visit [facility] [address] [place] [address] [place] [address] [place] [address] Next available New patientNamePriorityAssociated DiagnosesDate/Time PHACOEMULSIFICATION CATARACT [...] ProgressPatient-Stated?Author Autogenerated Goal Care PlanAutogenerated ProblemNoZelek, Chey Bryan Autogenerated Goal Care PlanAutogenerated ProblemNoZelek, Chey Ddocumented as of this encounter Visit Diagnoses Not on filedocumented in this encounter Additional Health Concerns Active ProblemsNoted DateDiagnosed DateAutogenerated Ejaakac3012/23/2024 Autogenerated Liweueq9212/23/2024documented as of this encounter Care Teams Team MemberRelationshipSpecialtyStart DateEnd Date Oliva Simons MD [address] [place] [phone] PCP - GeneralFamily Wrsmfdrz55/28/21 [employer] Ralf Community Resource06/17/22documented as of this encounter
--- OUTSIDE RECORDS SUMMARY | 2025-03-04 22:03 | XMS_ITS | Clinical Summary ---
Author Organization [facility] Address [address] [place] [address] Care Team Providers Care Restorer Lace And Textiles Name Role Phone Unavailable Primary Care Provider Unavailabl e Social History Tobacco UseTypesPacks/DayYears UsedDateSmoking Tobacco: Never Assessed CommentsUnknownSex and Gender InformationValueDate RecordedSex Assigned at Not on fileLegal SyzTacmws54/15/2023 6:44 PM EDTGender IdentityNot on fileSexual OrientationNot on file Plan of Treatment Not on file Insurance
--- OUTSIDE RECORDS SUMMARY | 2025-03-04 22:03 | XMS_ITS | Clinical Summary ---
Author Organization [facility] Address [address] [place] [address] Care Team Providers Care Salad Bar Clerk Name Role Phone Unavailable Primary Care Provider Unavailabl e Social History Tobacco UseTypesPacks/DayYears UsedDateSmoking Tobacco: Never Assessed CommentsUnknownSex and Gender InformationValueDate RecordedSex Assigned at Not on fileLegal NbeKvgyjy63/29/2022 10:15 PM EDTGender IdentityNot on file Sexual OrientationNot on file Plan of Treatment Health MaintenanceDue DateLast DoneCommentsCT Hspypbwksujy40/14/1967Colonoscopy 1966Colorectal Cancer Ykqdxbbue44/14/1967FIT-DNA1966FIT1966 FOBT1966Medicare Annual Wellness (AWV)1966 4940Nfmchcrjlsqks91/14/1967 Depression Stbiddznh94/14/1979Hepatitis B Vaccines (1 of 3 - 19+ 3-dose series) 1985Pap Smear1987Adult Rmovhdz8305/30/1988Cervical Cancer Screening 1996HPV/Luwyfj0905/30/19960099Qpjfrrhmu58/14/2007Zoster Vaccines (1 of 2) 2016Influenza Vaccine (#1)2024HIB [...]
--- OUTSIDE RECORDS SUMMARY | 2025-03-04 22:03 | XMS_ITS | Clinical Summary ---
Author Organization [facility] Address [address] [place] [address] Care Team Providers Care Lap Checker Name Role Phone Oliva Simons MD Primary Care Provider [phone] Allergies Active AllergyReactionsCriticalityNoted DateCommentsMeperidineGI UpsetMedium 02/09/2021 Nausea, pt states room spins SafzrxmdowgykxrXhqcxVmwlpk93/27/2021OrphenadrineOther: See Comments,Hives,Rash Xwsykk6509/30/2015MidazolamMental Status XsjdpkQovqgs81/05/2021 Medications MedicationSigDispense QuantityRefillsLast FilledStart DateEnd DateStatus insulin aspart U-100 (NOVOLOG) 100 unit/mL Use via insulin pump Max daily dose 100 units, DX: E10.6507ctive dextrose 40 % gel Take 15 g by mouth as needed.Active cyanocobalamin (VITAMIN B-12) 1,000 mcg tab Take 1,000 mcg by mouth.11/07/2023ctive glucagon 3 mg/actuation nasal spray (BAQSIMI) 04/29/2019Active ondansetron orally disintegrating (ZOFRAN ODT) 4 mg disintegrating tablet Take 4 mg by mouth every 6 hours as needed.11/07/2023ctive DULCOLAX, BISACODYL, RECTAL by RECTAL route once daily as needed.Active bumetanide (BUMEX) 1 mg tablet Take 1 tablet by mouth every 12 hours.03/12/2024ctive acetaminophen (TYLENOL) 325 mg tablet Take 2 tablets by mouth every 6 hours as needed for pain.5Active aspirin, enteric coated (ADULT LOW DOSE ASPIRIN) 81 mg EC tablet Take 1 tablet by mouth two times a day for 28 days, THEN 1 tablet two times a day. 60 tablet /5Active metoprolol succinate ER (TOPROL XL) 100 mg Take 0.5 tablets by mouth two times a day. 90 tablet 5Active lisinopril (ZESTRIL) 5 mg tablet Take 1 tablet by mouth once daily. 30 tablet 5Active DOCUSATE SODIUM PO Take 100 mg by mouth once daily.Active FAMOTIDINE PO Take by mouth.Active polyethylene glycol 1450 MW, NF, BASE A, powd Active cholecalciferol, vitamin D3, (VITAMIN D3 PO) Take by mouth.Active baclofen 10 mg tablet Take 10 mg by mouth three times a day. [id number] isavuconazonium sulfate (CRESEMBA) 186 mg capsule Take 2 capsules by mouth as directed. Take two (2) capsules by mouth every 8 hours for 6 doses, then two (2) capsules per day. 180 capsule 5Active Additional Information Patient not taking.Reason: Other, Reported on 03/04/2025 ofloxacin (OCUFLOX) 0.3 % ophthalmic solution One drop in the OPERATIVE EYE only four times a day starting the day before surgery 10 mL 5Active doxycycline hyclate (VIBRAMYCIN) 100 mg capsule Take 1 capsule by mouth once daily.5Active metoprolol tartrate, short acting, (LOPRESSOR) 50 mg tablet Take 50 mg by mouth two times a day.5Active metroNIDAZOLE (METROGEL) 0.75 % Topical Gel Apply 0.75 % to affected area as needed.5Active ondansetron (ZOFRAN) 4 mg tablet Take 4 mg by mouth as needed.5Active posaconazole DR (NOXAFIL) 100 mg tablet Indications:Fungal meningitis (HCC)Take 3 tablets by mouth once daily. 270 tablet /6Active lactobacillus rhamnosus (CULTURELLE) 10 billion cell capsule Take 1 capsule by mouth once daily. 30 capsule /iscontinued Active Problems ProblemNoted DateDiagnosed DateCombined forms of age-related cataract of left eye12/23/2024ombined forms of age-related cataract of right eye12/23/2024 Posterior vitreous detachment of both eyes12/23/2024Epiretinal membrane (ERM) of both eyes12/23/2024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, left eye12/23/2024Type 1 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, right eye12/23/2024Postoperative pain08/25/2024Vitamin D uhzhmunkap21/12/2025Pain due to /12/2025Labile blood ngsuksi8408/24/2024KI (acute kidney injury)08/23/2024ilateral edema of lower nsgcvbnfe21/10/2025Non healing left heel wound08/23/2024losed fracture of distal end of left femur, unspecified fracture morphology, initial encounter 08/22/2024Elevated alkaline phosphatase level02/06/2024Type 1 diabetes mellitus with hgpltpmuoxdnj20/23/2024Insulin pump bolgxgkyq86/23/2024Long-term insulin use10/22/2023ressure injury of deep tissue of left foot10/17/2023eep tissue abegji2910/12/2023 Assessment & Plan (10/20/2023 11:14 AM EDT): Of left heel Appreciate wound care recs Assessment & Plan (10/19/2023 10:22 AM EDT): Of left heel Appreciate wound care recs Assessment & Plan (10/18/2023 12:37 PM EDT): Of left heel Appreciate wound care recs Assessment & Plan (10/17/2023 7:51 AM EDT): Of left heel Appreciate wound care recs Assessment & Plan (10/16/2023 12:39 PM EDT): Of left heel Appreciate wound care recs Assessment & Plan (10/12/2023 9:39 AM EDT): Of left heel Appreciate wound care recs Pressure injury of deep tissue of left heel10/12/2023 Assessment & Plan (10/20/2023 11:14 AM EDT): Per wound recs Assessment & Plan (10/19/2023 10:25 AM EDT): Per wound recs Assessment & Plan (10/18/2023 12:40 PM EDT): Per wound recs Assessment & Plan (10/17/2023 7:52 AM EDT): Per wound recs Alteration in self-care pspaufb0210/12/2023 Assessment & Plan (10/20/2023 11:14 AM EDT): Right leg weakness which is improving s/p shunt placement but not at functional baseline Assessment & Plan (10/19/2023 10:22 AM EDT): Right leg weakness which is improving s/p shunt placement but not at functional baseline Assessment & Plan (10/18/2023 12:37 PM EDT): Right leg weakness which is improving s/p shunt placement but not at functional baseline Impaired lhucouwr18/28/2024 Assessment & Plan (10/20/2023 11:14 AM EDT): Right leg weakness secondary to hydrocephalus Left tibial fracture due to fall at home- boot in place s/p fixation repair Assessment & Plan (10/19/2023 10:24 AM EDT): Right leg weakness secondary to hydrocephalus Left tibial fracture due to fall at home- boot in place s/p fixation repair Assessment & Plan (10/18/2023 12:40 PM EDT): Right leg weakness secondary to hydrocephalus Left tibial fracture due to fall at home- boot in place s/p fixation repair Risk for falls10/12/2023S/P exploratory /28/2024Hydrocephalus 10/11/2023 Assessment & Plan (10/20/2023 11:14 AM EDT): S/p Right occipital ventriculo-atrial shunt (Certas at 6) by Dr. Oconnor on 10/15/2023 Post-operative CT brain w/o contrast and cxr complete Ok to shower and wash hair Urostomy in place Left boot in place Transfer to [facility] POD#2 Upper and lower extremity ultrasound negative for DVT Continue pain regimen: tylenol and oxycodone Bowel regimen in place PMR recommending AR as well PT OT assessments for dispo planning- Plan for AR Pending tahira MD acceptance to initiate precert for patient Medically ready for discharge at this time Assessment & Plan (10/19/2023 10:24 AM EDT): S/p Right occipital ventriculo-atrial shunt (Certas at 6) by Dr. Oconnor on 10/15/2023 Post-operative CT brain w/o contrast and cxr complete Ok to shower and wash hair Urostomy in place Left boot in place Transfer to [facility] POD#2 Upper and lower extremity ultrasound negative for DVT Continue pain regimen: tylenol and oxycodone Bowel regimen in place PMR recommending AR as well PT OT assessments for dispo planning- Plan for AR Pending tahira MD acceptance to initiate precert for patient Medically ready for discharge at this time Assessment & Plan (10/18/2023 12:40 PM EDT): S/p Right occipital ventriculo-atrial shunt (Certas at 6) by Dr. Oconnor on 10/15/2023 Post-[address] brain w/o contrast and cxr complete Ok to shower and wash hair Urostomy in place Left boot in place Transfer to [facility] POD#2 Upper and lower extremity ultrasound negative for DVT Continue pain regimen: tylenol and oxycodone Bowel regimen in place PMR recommending AR as well PT OT assessments for dispo planning- Plan for AR Pending tahira MD acceptance to initiate precert for patient Medically ready for discharge at this time Assessment & Plan (10/17/2023 7:50 AM EDT): Admitted for planned shunt reimplantation Plan for OR Sunday with NSGY and gen surg assist Appreciate medicine for clearance MRI brain localization complete Needs CT brain with fids Sunday PT OT assessments for dispo planning- Plan for AR Dispo 1-2 days post shunt surgery Assessment & Plan (10/16/2023 12:39 PM EDT): Admitted for planned shunt reimplantation Plan for OR Sunday with NSGY and gen surg assist Appreciate medicine for clearance MRI brain localization complete Needs CT brain with fids Sunday PT OT assessments for dispo planning Dispo 1-2 days post shunt surgery Assessment & Plan (10/12/2023 9:47 AM EDT): Admitted for planned shunt reimplantation Plan for OR Sunday with NSGY and gen surg assist Appreciate medicine for clearance MRI brain localization complete Needs CT brain with fids Sunday PT OT assessments for dispo planning Dispo 1-2 days post shunt surgery Type 1 diabetes mellitus with vbqjnbrooblmt64/27/2024 Assessment & Plan (10/20/2023 11:14 AM EDT): With insulin pump in place Endocrine consulted Ok to continue with home insulin pump if BG is controlled If pump is removed, see endo note for recs for lantus + SSI Assessment & Plan (10/19/2023 10:25 AM EDT): With insulin pump in place Endocrine consulted Ok to continue with home insulin pump if BG is controlled If pump is removed, see endo note for recs for lantus + SSI Assessment & Plan (10/18/2023 12:41 PM EDT): With insulin pump in place Endocrine consulted Ok to continue with home insulin pump if BG is controlled If pump is removed, see endo note for recs for lantus + SSI Assessment & Plan (10/17/2023 7:51 AM EDT): With insulin pump in place Endocrine consulted Ok to continue with home insulin pump if BG is controlled If pump is removed, see endo note for recs for lantus + SSI Assessment & Plan (10/16/2023 12:39 PM EDT): With insulin pump in place Endocrine consulted Ok to continue with home insulin pump if BG is controlled If pump is removed, see endo note for recs for lantus + SSI Assessment & Plan (10/12/2023 9:41 AM EDT): With insulin pump in place Endocrine consulted Ok to continue with home insulin pump if BG is controlled If pump is removed, see endo note for recs for lantus + SSI Insulin pump in place10/11/2023 Assessment & Plan (10/20/2023 11:14 AM EDT): See DM POC Endo following for settings Assessment & Plan (10/19/2023 10:25 AM EDT): See DM POC Endo following for settings Assessment & Plan (10/18/2023 12:40 PM EDT): See DM POC Endo following for settings Assessment & Plan (10/17/2023 7:51 AM EDT): See DM POC Endo following for settings Assessment & Plan (10/16/2023 12:39 PM EDT): See DM POC Assessment & Plan (10/12/2023 9:42 AM EDT): See DM POC Recurrent falls10/11/2023 Assessment & Plan (10/20/2023 11:14 AM EDT): PT recs Appreciate acute rehab referral Assessment & Plan (10/19/2023 10:25 AM EDT): PT recs Appreciate acute rehab referral Assessment & Plan (10/18/2023 12:41 PM EDT): PT recs Appreciate acute rehab referral Assessment & Plan (10/17/2023 7:51 AM EDT): PT recs Assessment & Plan (10/16/2023 12:39 PM EDT): PT recs ABLA (acute blood loss anemia)10/09/2023Tibia/fibula fracture, left, closed, initial ivjpxrrks43/23/2024 Assessment & Plan (10/20/2023 11:14 AM EDT): LEFT tibial IMN for tibial shaft fx by Dr. Morejon on 10/08/23 at [facility] Ortho consult WBAT per ortho assessment PT OT assessments Pain control Boot immobilizer in place Assessment & Plan (10/19/2023 10:25 AM EDT): LEFT tibial IMN for tibial shaft fx by Dr. Morejon on 10/08/23 at [facility] Ortho consult WBAT per ortho assessment PT OT assessments Pain control Boot immobilizer in place Assessment & Plan (10/18/2023 12:41 PM EDT): LEFT tibial IMN for tibial shaft fx by Dr. Morejon on 10/08/23 at [facility] Ortho consult WBAT per ortho assessment PT OT assessments Pain control Boot immobilizer in place Assessment & Plan (10/17/2023 7:47 AM EDT): LEFT tibial IMN for tibial shaft fx by Dr. Morejon on 10/08/23 at [facility] Ortho consult WBAT per ortho assessment PT OT assessments Pain control Boot immobilizer in place Assessment & Plan (10/16/2023 12:39 PM EDT): LEFT tibial IMN for tibial shaft fx by Dr. Morejon on 10/08/23 at [facility] Ortho consult WBAT per ortho assessment PT OT assessments Pain control Boot immobilizer in place Assessment & Plan (10/12/2023 9:42 AM EDT): LEFT tibial IMN for tibial shaft fx by Dr. 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 Continues with empiric posconazole 300m daily Appreciate ID consult Cleared for shunt from ID perspective Routine cervical/ thoracic MRI for follow up per ID recs. 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 Continues with empiric posconazole 300m daily Appreciate ID consult Cleared for shunt from ID perspective Routine cervical/ thoracic MRI for follow up per ID recs. 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 Continues with empiric posconazole 300m daily Appreciate ID consult Cleared for shunt from ID perspective Routine cervical/ thoracic MRI for follow up per ID recs. Gait wyogvthpxel96/23/2024ommunicating fyoqrwdooupam24/22/2024Unstageable pressure ulcer of sacral zytabk1706/16/2022Spinal cord mass06/15/2022Lesion of lumbar spine06/10/2022hronic low back pain without fnvuxytq92/28/2022 Esjknoyxbdmalo37/26/1520Vxeikhdeayvi48/22/9554Gfidbudzrmhoik44/22/2022 Dudyjnrjefz97/07/9660Tkjkymdpltyhodurl28/07/2022evere protein-calorie elnvxoihjrkq68/06/2022Malignant neoplasm of urinary gsucvja4504/20/2021Neoplasm of jkomiwg8502/16/2021 Assessment & Plan (04/13/2021 12:59 PM EST): S/p TURBT 02/18/21. Assessment & Plan (02/16/2021 10:27 AM EDT): -Scheduled for Surgery Trmbfs7002/16/2021 Assessment & Plan (04/13/2021 12:44 PM EST): On albuterol nebulizer. Patient has had increase in asthma symptoms of cough and SOB since she found out she needed surgery3 weeks ago. She has been using albuterol twice per day. Denies productive cough. Lungs CTA bilaterally on exam, SpO2 99% on room air. Assessment & Plan (02/16/2021 10:31 AM EDT): -stable, uses rescue inhaler/nebulizer worse during the summer/allergy season -hasn't needed rescue inhaler in over a month -admits to chronic cough that has been present since her late 20s, has not worsened recently -denies shortness of breath, lungs CTA, SpO2 100% on room air Essential nsbfduaratgj14/03/2021 Assessment & Plan (10/20/2023 11:14 AM EDT): Monitoring SBP, goal <160 Continue home lisinopril 20mg daily Assessment & Plan (10/19/2023 10:24 AM EDT): Monitoring SBP, goal <160 Continue home lisinopril 20mg daily Assessment & Plan (10/18/2023 12:37 PM EDT): Monitoring SBP, goal <160 Continue home lisinopril 20mg daily Assessment & Plan (10/17/2023 7:47 AM EDT): Monitoring SBP, goal <160 Continue home lisinopril 20mg daily Assessment & Plan (10/16/2023 12:39 PM EDT): Monitoring SBP, goal <160 Continue home lisinopril 20mg daily Assessment & Plan (10/12/2023 9:47 AM EDT): Monitoring SBP, goal <160 Continue home lisinopril 20mg daily Assessment & Plan (04/13/2021 12:58 PM EST): On rx. BP elevated today, 160/80 manually. Patient states she is anxious about surgery. Home BP has been 130s/70s-80s. States she was originally put on rx for kidney protection due to diabetes. Assessment & Plan (02/16/2021 10:32 AM EDT): -BP elevated today in office, patient states she is very anxious regarding this surgery -at home BP 120/60 -per patient originally started on medications for more of a kidney protection with diabetes history Kwiuezauzqaz84/03/2021 Assessment & Plan (04/13/2021 12:57 PM EST): Stable, on metoprolol. Has had some palpitations recently, thinks it may be correlated with anxiety. Denies associated chest pain or SOB. RRR on exam today. Assessment & Plan (02/16/2021 10:33 AM EDT): -stable on beta dianna -last echo 12/2018 -denies current symptoms, EKG pending Type 1 diabetes mellitus without retinopathy Assessment & Plan (04/18/2021 9:49 AM EST): Stable, on metformin and insulin pump. FBS 120-140s. HgA1C 8.1 on 04/13/21. Follows with veterinary medicine doctor at . Resolved Problems ProblemNoted DateDiagnosed DateResolved DatePressure injury of left heel, stage //ressure injury of coccygeal region, stage 10/17/2023 Assessment & Plan (10/17/2023 7:51 AM EDT): Off loading Wound care team consult Assessment & Plan (10/16/2023 12:39 PM EDT): Off loading Wound care team consult Assessment & Plan (10/12/2023 9:40 AM EDT): Off loading Wound care team consult Preop exam for internal hzhkibfw09/28//4480Bwhuxslwpyvu35/23/2024 10/18/2023Small bowel pbovfxcftfz04/02/202209/6165Qdomrnx81/03/202102/ Assessment & Plan (04/13/2021 12:37 PM EST): Body mass index is 32.12 kg/m??. Assessment & Plan (02/16/2021 10:33 AM EDT): -Body mass index is 31.25 kg/m??. Encounters DateTypeDepartmentCare OwfxLoyngnkepli20/19/2025 11:45 AM ESTOffice Visit Replaced By [facility] [address] [id number] Susanna Carranza PA-C Syringomyelia and syringobulbia (HCC) (Primary Dx)03/04/2025 8:39 AM ESTHospital Encounter MRI Q [address] [address] 03/04/2025 8:39 AM ESTHospital Encounter MRI Q [address] [address] Syringomyelia and syringobulbia (HCC) [G95.0]03/04/2025 8:37 AM ESTHospital Encounter MRI Q [address] [address] 03/04/2025Procedure Replaced By [facility] [address] [address] Susanna Carranza PA-C 03/04/20251479Hpffft66/18/2025Telephone MRI Q [address] [address] Rosa Parra RN Radiology Pre Procedure Niwycktnsdja23/17/2025 [place] [address] Provider, [facility] MRI Screening Questionnaire Completion Jhloibvw20/04/2025 10:00 AM ESTOffice Visit Orthopaedics [place] [id number] [place] [address] Catalina Monge PA-C Closed fracture of distal end of left femur, unspecified fracture morphology, initial encounter (HCC) (Primary Dx)02/17/2025 9:00 AM EST - 02/17/2025 11:59 PM ESTHospital Encounter Radiology [id number] [place] [phone] Closed fracture of distal end of left femur, unspecified fracture morphology, initial encounter (HCC) [S72.402A] Discharge Disposition: Home02/12/2025 9:30 AM EDTOffice Visit Replaced By [facility] [address] [address] Payton Barksdale MD Syringomyelia and syringobulbia (HCC) (Primary Dx)02/12/20251774Bwehnf75/28/2025 Orders Only Ophthalmology [address] [place] [address] Epiretinal membrane (ERM) of both eyes (Primary Dx); 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, left eye (HCC); Type 1 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, right eye (HCC)02/09/2025Telephone Replaced By [facility] [place] [address] [place] [address] Susanna Carranza PA-C Vfnvlbjrtxk83/08/2025 Get Medical Advice Infectious Disease [address] [id number] Jamie Mccarty MD Avguzoc7301/21/2025Refill Infectious Disease [address] [place] [address] Jamie Mccarty MD Refill Swipfuw7601/09/2025 1:00 PM EDTOffice Visit Rehab Medicine [facility] [address] [place] [address] Noel Daniels MD Chronic incomplete spastic paraplegia (HCC) (Primary Dx); Spasm of muscle; Impaired mobility and activities of daily living; Myelitis (HCC)01/09/20259374Gpzedi74/24/2025 Patient [facility] [address] [place] [address] Astrid Gaxiola MD Surgery with Dr. Gaxiola12/23/2024 2:30 PM EDTOffice Visit [facility] Ophthalmology [address] [place] [address] Astrid Gaxiola MD Diagnostics, Eye Tech And Combined forms of age-related cataract of right eye (Primary Dx); Combined forms of age-related cataract of left eye; Epiretinal membrane (ERM) of both eyes; Posterior vitreous detachment of both eyes; 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, left eye (HCC); Type 1 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, right eye (HCC)12/12/2024 Patient [facility] [address] [place] [address] Jamie Mccarty MD New hlxefhqhti06/29/2025 Patient [facility] [place] [address] [phone] Siri Poon PSS Scheduled /29/2025Telephone Infectious Disease [address] [phone] Jamie Mccarty MD Medication Authorization (Cresemba)12/12/2024Orders Only [facility] [address] [place] [address] Jamie Mccarty MD 12/11/2024 10:00 AM EDTOffice Visit Orthopaedics [place] [address] [facility] [address] Juliann Morejon MD Closed fracture of distal end of left femur, unspecified fracture morphology, initial encounter (HCC) (Primary Dx)12/11/2024 9:38 AM EDT - 12/11/2024 11:59 PM EDTHospital Encounter Radiology [address] [place] [id number] Tibia/fibula fracture, left, closed, initial encounter [S82.202A, S82.402A] Discharge Disposition: Home12/11/2024Telephone Replaced By [facility] [address] [place] [address] Susanna Carranza PA-C 12/08/2024 1:[facility] [address] [phone] Noel Daniels MD Chronic incomplete spastic paraplegia (HCC) (Primary Dx); Spasm of muscle; Impaired mobility and activities of daily rlhona9812/08/20241403Tqejjw33/20/2025 Get Medical Advice Infectious Disease [address] [place] [address] Jamie Mccarty MD R/T Noxafilfrom Last 3 Months Immunizations ImmunizationAdministration DatesNext DueCOD original vaccine, full dose, monovalent (MODERNA)02/21/2021influenza (IIV3) vaccine, age 6 mo - 64 yr, trivalent (AFLURIA, FLULAVAL, FLUVIRIN, FLUZONE)01/17/2021influenza (IIV4) vaccine, age 6 mo - 64 yr, quadrivalent, PF (AFLURIA, FLUARIX, FLULAVAL, FLUZONE)04/26/2017,04/21/2016influenza (ccIIV4) vaccine, age 6+ mo, quadrivalent (FLUCELVAX)12/26/2018,12/25/2017novel influenza (G6S3-50) vaccine, PF02/25/2009 pneumococcal polysaccharide (PPV23) vaccine, 23 valent (PNEUMOVAX 23)02/19/2021, 09/28/2005 Family History Medical HistoryRelationCommentsCataractFatherCataractMotherAnesthesia ProblemsNo Family HistoryAneurysmNo Family HistoryColon CancerNo Family HistoryRelation StatusCommentsFatherMother Social History Tobacco UseTypesPacks/DayYears UsedDateSmoking Tobacco: NeverSmokeless Tobacco: Never Tobacco Cessation:Counseling Given: Not Answered Alcohol UseStandard Drinks/WeekCommentsNot Currently0 (1 standard drink = 0.6 oz pure alcohol)[facility] UtilitiesAnswerDate RecordedIn the past 12 [...] steady place to sleep or slept in [place] (including now)?No10/12/2023Housing Stability Vital SignAnswerDate RecordedIn the last 12 months, was there a time when you were not able to pay the mortgage or rent on time?No08/25/2024Number of Times Moved in the Last Year Not on file08/25/2024t any time in the past 12 months, were you homeless or living in a long term (including now)?Yes08/25/2024UDIT-CAnswerDate RecordedQ1: How often do you have a drink containing alcohol?Never03/04/2025Q2: How many drinks containing alcohol do you have on a typical day when you are drinking? Patient does not drink03/04/2025Q3: How often do you have six or more drinks on one occasion?Never03/04/2025rea Deprivation IndexAnswerDate RecordedNational Score (1-100), lower number is lower xutg989001/09/2024State Score (1-10), lower number is lower nesa889ata from: https://www.neighborhoodatlas.[facility].[place] [facility].edu/. Last address used for r[address]01/09/2024CommentsNoSex and Gender InformationValueDate RecordedSex Assigned at BirthNot on fileLegal SexFemale 03/17/2012 7:33 AM ESTGender IdentityNot on fileSexual OrientationNot on file Last Filed Vital Signs Vital SignReadingTime TakenCommentsBlood Dteinfme376/5503/04/2025 1:56 PM EST provider jpnvittnQeqlr09332/19/2025 1:56 PM ESTprovider efldxnejLuqojzbwvam22.6 ??C (99.6 ??F)03/04/2025 1:56 PM ESTprovider notifiedRespiratory Rate18 03/04/2025 1:56 PM ESTOxygen Cxyzphfdkh66%03/04/2025 1:56 PM ESTInhaled Oxygen Concentration--Xgrqco82 kg (172 lb)01/09/2025 12:44 PM RWHYdnzec501.6 cm (5' 6 ) 01/09/2025 12:44 PM EDTBody Mass Index27.7609 12:44 PM EDT Plan of Treatment DateTypeDepartmentCare Team (Latest Contact Info)Skuibheboxj66/20/2025 2:20 PM ESTPAT Pre Anesthesia [address] [place] [address] 1, Pacc [place] [address] [place] [address] CATARACT SURGERY RIGHT THEN LEFT OQBMYM5603/05/2025 3:00 PM ESTOffice Visit OPHT Ophthalmology [address] [place] [address] CATARACT SURGERY RIGHT THEN LEFT RYKLEU9903/18/2025 8:50 AM ESTHospital Encounter Ambulatory Surgery [address] [place] [address] Astrid Gaxiola MD [address] [facility] [place] [address] Combined forms of age-related cataract of right eye [H25.811]03/18/2025 8:50 AM EST - 03/18/2025 9:25 AM ESTSurgery Ambulatory Surgery [address] [place] [address] Astrid Gaxiola MD [address] [facility] [place] [address] PHACOEMULSIFICATION CATARACT IMPLANT INTRAOCULAR LENS W/O ENDOSCOPIC WWQTIDQOWRFKJAMJUSUPS68/10/2025 9:05 AM ESTHospital Encounter Ambulatory Surgery [address] [place] [address] Astrid Gaxiola MD [address] [facility] [place] [address] Combined forms of age-related cataract of left eye [H25.812]03/25/2025 9:05 AM EST - 03/25/2025 9:40 AM ESTSurgery Ambulatory Surgery [address] [place] [address] Astrid Gaxiola MD [address] [facility] [place] [address] PHACOEMULSIFICATION CATARACT ANTERIOR IMPLANT INTRAOCULAR LENS W/O ENDOSCOPIC NPPNINRPMYUMVLDBXBJAM19/18/2025 9:30 AM ESTOffice Visit [facility] [address] [place] [address] Susanna Carranza PA-C [address] [place] [address] Next available New dhmstgz3805/05/2025 12:[address] [facility] Urology [address] [address] Chente Phillip MD [address] [place] [address] 6 month vv - h/o bladder cancer per cc chart05/07/2025 1:00 PM ESTOffice Visit OPHT Ophthalmology [address] [place] [address] Ulisses Kauffman MD [address] [place] [address] Diagnostics, [facility] [address] [address] *NEW, PRE OP CLEAR PER ELIJAH, T1 PDR, DFE/OCT/OCT-A OPTOS OU r/s from 02/1205/12/2025 1:00 PM ESTOffice Visit Rehab Medicine [facility] [address] [place] [address] Noel Daniels MD [address] [place] [address] botox05/14/2025 10:15 AM ESTOffice Visit [facility] [address] [place] [address] [place] [address] [place] [address] Next available New patientNamePriorityAssociated DiagnosesDate/Time PHACOEMULSIFICATION CATARACT [...] cataract of left eye 03/25/2025 9:05 AM ESTHealth MaintenanceDue DateLast DoneCommentsUrine Albumin:Creatinine Ratio1976Annual PCP Team Chronic Disease Visit 1984Anxiety Oniipxefe90/14/1985Depression Txgwxogaa92/14/1985HIV Screening 1984Hepatitis C Oltfzysxg43/14/1985DTaP,Tdap,Td Vaccine (1 - Tdap) 1985Hepatitis B Vaccine (1 of 3 - 19+ 3-dose series)1985Cervical Cancer Ksuvntrob44/14/1988Mammogram Udywnsokw22/14/2007CT Fjfxlkhbieqs52/14/2012 Cologuard (FIT-DNA)2011Fecal Occult Blood05/30/20119880Iawlpemlxmqti93/14/2012 Shingrix Vaccine (1 of 2)2016Pneumococcal Vaccine: 50+ (2 of 2 - PCV) /09/2020, 09/28/2005Diabetic Foot Exam/06/2020Medicare Advantage Annual Wellness Visit5Covid-19 Vaccine ( season) /, 03/08/2021, 02/21/2021, Additional history nuqbzjEnU5Q /, 08/29/2024, 08/29/2024, Additional history existsLDL Xbxnsjvbjqm73/03/195039/4Dilated Retinal Exam/12/2024 Dxajvzrjmgp41/08/203206/2Colorectal Cancer Yatlkwtre07/08/2032Influenza RuajehlWymbawvhy84/12/2025, 01/18/2023, 01/17/2021, Additional history exists Goals GoalPatient Goal TypeAssociated ProblemsRecent ProgressPatient-Stated?Author Autogenerated Goal Care PlanAutogenerated ProblemChey Crenshaw Autogenerated Goal Care PlanAutogenerated ProblemChey Crenshaw Medical Devices ImplantedTypeAreaManufacturerDevice IdentifierShelf Expiration DateModel / Serial / LotSet External Drainage 35cm 1.5mm 3-15cm Catheter Inner Lumen Depth Jeremias - [id number] Implanted:Qty: [facility] - Cranial [id number] / / [id number]:SiliconeKit Catheter 120cm Peritoneal Ventricular Shunt Codman Bactiseal 14cm - [id number] Implanted:Qty: 1 on 07/10/2022 at [facility]: Head - Cranial [id number] / / [id number]:Silicone Matrix-NonmetallicCatheter Drainage 120cm Peritoneal Codman Bactiseal Barium Silicone Sterile - [id number] Implanted:Qty: 1 on 10/15/2023 [facility] Head - Cranial [id number] / / [id number] Holter [place]ham 6mm Plastic Base 15cm Shunt Ventricular Catheter - [id number] Implanted:Qty: 1 on 07/10/2022 at [facility]: Head - Cranial [id number] / / [id number]:SiliconeReservoir Shunt 15cm Csf Ventricular Catheter Base Codman Holter Rickham - [id number] Implanted:Qty: 1 [facility] - Cranial [employer]06/13/[id number] / / [id number] T2 8mm 4mm End Insertion Arthrodesis Nail Sterile Ankle - [id number] Implanted:Qty: 1 [facility] - Femur JUAN GCCHHQ51/28/[id number] / / [id number] Alpha Tibial Nail 11mm X 330mm Implanted:Qty: 1 on 10/08/2023 [facility] Bone - TibiaSTRYKER [id number] / / [id number] Femoral Retrograde [id number] Implanted:Qty: 1 on 08/23/2024 by [facility]n [facility]: Bone - SupknYKKKOWL12/30/[id number] / / [id number] Screw 5x45mm - [id number] Implanted:Qty: 1 on 10/08/2023 at [facility] BCVOLOVETVZ7064- 5045S / / [id number] Locking Screw 5mm X 47mm Implanted:Qty: 1 [facility] - Tibia SZVCUGW47/31/[id number] / / [id number] Locking Screw 5mm X 37mm Sterile Implanted:Qty: 2 on [facility]/20[facility] Bone - Tibia QNEKFIE98/31/[id number] / / [id number] Locking Screw 5mm X 40mm Sterile Implanted:Qty: 1 on 10/08/2023 [facility] Bone - Tibia VJSKJFR61/31/[id number] / / [id number] Locking Screw 5x85mm Implanted:Qty: 1 on 08/23/2024 by Juliann [facility]jon MD at [facility] ScrewLeft: Bone - PougaWYXVHGW68/30/[id number] / / [id number] Locking Screw 5x60mm - [id number] Implanted:Qty: 1 on 08/23/2024 by Juliann [facility]jon MD at [facility] ScrewLeft: Bone - ZkmozDFIFIIU40//[id number] / / [id number] Screw 5x35mm - [id number] Implanted:Qty: 1 on 08/23/2024 [facility]: Bone - Femur JUAN NZXGECHXFDR82//[id number] / / [id number] Screw 5x32mm - [id number] Implanted:Qty: 1 on 08/23/2024 [facility]: Bone - Femur JUAN CDWJATVSJXT50/31/[id number] / / [id number] Locking Screw 5x75mm - [id number] Implanted:Qty: 1 on 08/23/2024 by Juliann [facility] MD at [facility] ScrewLeft: Bone - UznwgMGYPTUT93/31/[id number] / / [id number] Locking Screw 5x65mm - [id number] Implanted:Qty: 1 on 08/23/2024 [facility] - NqarwROWCBIH32/31/58881539-1765B / / [id number] Valve Inline Small Valve W/Siphonguard Implanted:Qty: 1 on [facility]/20[facility]unt[facility]: Head - Cranial [employer]536452-9397LH / / [id number] Inlay [place] 8fr Taper Hoh Green Polymer Phreecoat 30cm Ureteral - [id number] Implanted:Qty: 1 on 04/20/2021 [facility]entLeft: UreterBARD MEDICAL HTSYLDVZ94/22/[id number] / / [id number] Inlay [place] 8fr Taper Hoh Green Polymer Phreecoat 30cm Ureteral - [id number] Implanted:Qty: 1 on 04/20/2021 [facility]entRight: UreterBARD MEDICAL PFRUFLOO48/22/[id number] / / [id number] Inlay [place] 7fr Taper Hoh Green Polymer Phreecoat 24cm Ureteral - [id number] Implanted:Qty: 1 on 12[facility]17/20[facility] St[facility]Right: Ureter RANDELL DZEAEYZEJ29/23/[id number] / / [id number] Valve Inline Small Valve W/Siphonguard Implanted:Qty: 1 [facility]10/20[facility] Rehabilitation[facility]Right: Head - Cranial [employer]04/15/222478-7930YB / / [id number]:Codman Certas Plus Programmable Valve 1.5/ 3T 2000 Gauss Programmable Valve Inline Small Valve W/Siphonguard Implanted:Qty: 1 on 10/15/2023 [facility] RehabilitationValveRight: Head - Cranial [employer]07/14/595848-8330DO / / [id number] Procedures Procedure NamePriorityDate/TimeAssociated DiagnosisCommentsGLUCOSE, BLOOD (POC) Jztipge5203/04/2025 12:52 PM EST MRI THORACIC SPINE WO ADDJZZnsdfle13/19/2025 12:24 PM EST Syringomyelia and syringobulbia (HCC) MRI CERVICAL SPINE WO PDGTKNlgzmgc23/19/2025 12:24 PM EST Syringomyelia and syringobulbia (HCC) XR FEMUR GENERAL 2V AP/LAT LZEKHruxyfx01/04/2025 9:27 AM EST Closed fracture of distal end of left femur, unspecified fracture morphology, initial encounter (HCC) XR FEMUR GENERAL 2V AP/LAT CCQQGkgoezt09/28/2025 1:39 PM EDT Tibia/fibula fracture, left, closed, initial encounter LIPID PANEL, TSEJUZWAybbivf56/03/2024 10:45 AM EST 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) HEMOGLOBIN A1C (POC)Rcoulsz7802/06/2024 11:23 AM EDT 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) COLONOSCOPY TTTJZIOMFTebgzke71/08/2022 2:48 PM EDT Encounter for screening for malignant neoplasm of colon from Last 3 Months or Most Recently Relevant to Health Maintenance Results * (ABNORMAL) GLUCOSE, BLOOD (POC) (03/04/2025 12:52 PM EST)ComponentValueRef RangeTest MethodAnalysis TimePerformed AtPathologist SignatureGlucose, Point of Rutb789(A)74 - 99 mg/dLCleveland Clinic Children'S Hospital For RehabilitationComment: Location:[facility], [address] [place] [address], [facility] The Accu-Chek Inform II glucose meter has [...] ProviderPOC TESTINGFinal Result Performing OrganizationAddressCity/State/ZIP CodePhone Number [facility] POINT OF CARE [address] * MRI THORACIC SPINE WO IVCON (03/04/2025 [...] and assume there are 5 lumbar-type vertebrae. Event Staff Member: SUMA ?? Transcribe Date/Time: Mar 04 2025 12:28P [...] status post cystectomy, ??communicating hydrocephalus status post VICE PRESIDENT CLIENT SERVICES shunt placement, loculated arachnoid collection along the [...] canal or foraminal narrowing. Procedure Note Provider, [facility] [place] - 03/04/2025 * * *Final Report* * [...] status post cystectomy, communicating hydrocephalus status post VICE PRESIDENT CLIENT SERVICES shunt placement, loculated arachnoid collection along the [...] and assume there are 5 lumbar-type vertebrae. Event Staff Member: PSCB Transcribe Date/Time: Mar 04 2025 12:28P Dictated by : RASHID HAAS MD This examination was interpreted and the report reviewed and electronically signed by: MILTON THEODORE MD on Mar 04 2025 2:45PM EST Authorizing ProviderResult TypeResult StatusSarel Roque Mckenziemichelle MDMRI-PAMA Final Result * MRI CERVICAL SPINE WO [...] and assume there are 5 lumbar-type vertebrae. Event Staff Member: SUMA ?? Transcribe Date/Time: Mar 04 2025 12:28P [...] status post cystectomy, ??communicating hydrocephalus status post VICE PRESIDENT CLIENT SERVICES shunt placement, loculated arachnoid collection along the [...] canal or foraminal narrowing. Procedure Note Provider, [facility] [place] - 03/04/2025 * * *Final Report* * * DATE OF EXAM: Mar 04 2025 12:24PM QBM [id number] - MRI CERVICAL SPINE WO IVCON / PROCEDURE REASON: Syringomyelia and syringobulbia (HCC) * * * * Physician Interpretation * * * * EXAMINATION: MRI THORACIC SPINE WO IVCON, MRI CERVICAL SPINE WO IVCON CLINICAL HISTORY: Bladder cancer diagnosed in April 2021 status post cystectomy, communicating hydrocephalus status post VICE PRESIDENT CLIENT SERVICES shunt placement, loculated arachnoid collection along the [...] and assume there are 5 lumbar-type vertebrae. Event Staff Member: SUMA Transcribe Date/Time: Mar 04 2025 12:28P Dictated by : RASHID HAAS MD This examination was interpreted and the report reviewed and electronically signed by: MILTON THEODORE MD on Mar 04 2025 2:45PM EST Authorizing ProviderResult TypeResult StatusSarel Roque Barksdale MDMRI-PAMA Final Result * XR FEMUR GENERAL 2V AP/LAT LEFT (02/17/2025 9:27 AM EST)Anatomical Region LateralityModalityFemurOtherSpecimen (Source)Anatomical Location / Laterality Collection Method / VolumeCollection TimeReceived Time02/17/2025 9:27 AM EST Impressions 02/23/2025 9:21 AM EST IMPRESSION: Healed left distal femur fracture status post open reduction internal fixation. Event Staff Member: SUMA ?? Transcribe Date/Time: Feb 23 2025 [...] left femur, unspecified fracture morphology, initial encounter ([facility]) COMPARISON: 12/11/2024 RESULT: No acute fracture or [...] hardware. Atherosclerotic vessel calcifications. Procedure Note Provider, [facility] [place] - 02/23/2025 * * *Final Report* * [...] left femur, unspecified fracture morphology, initial encounter ([facility]) COMPARISON: 12/11/2024 RESULT: No acute fracture or [...] fracture status post open reduction internal fixation. Event Staff Member: SUMA Transcribe Date/Time: Feb 23 2025 9:18A Dictated by : LIAT ANDUJAR MD This examination was interpreted and the report reviewed and electronically signed by: LIAT ANDUJAR MD on Feb 23 2025 9:19AM EST Authorizing ProviderResult TypeResult StatusAnoscottaixa Darleen MDRAD-PAMAFinal Result * XR FEMUR GENERAL 2V AP/LAT LEFT (12/11/2024 1:39 PM EDT)Anatomical Region LateralityModalityFemurOtherSpecimen (Source)Anatomical Location / Laterality Collection Method / VolumeCollection TimeReceived Time12/11/2024 1:39 PM EDT Impressions 12/16/2024 2:36 PM EDT IMPRESSION: Status post ORIF of a femur fracture with vanessa and screws and no interval change in alignment or evidence of hardware failure. Event Staff Member: SUMA ?? Transcribe Date/Time: Dec ??2024 ??2:31P Dictated by : ENOC DODSON MD This examination was interpreted and the report reviewed and electronically signed by: ENOC DODSON MD on Dec ??2024 ??2:33PM ??EST Narrative 12/16/2024 2:36 PM EDT * * *Final Report* * * DATE OF EXAM: Dec 11 2024 ??1:39PM ?? FGX ?? 5332 ??- ??XR FEMUR 2V AP/LAT LT ??/ PROCEDURE REASON: multiple diagnoses ? * * * * Physician Interpretation * * * * CLINICAL: ??FRACTURE TECHNIQUE: AP AND LATERAL VIEWS OF THE LEFT FEMUR COMPARISON: 08/12/2024 RESULT: Intramedullary vanessa is seen in the distal femur. ??There is evidence of prior ORIF of the tibia. ??Tricompartmental narrowing is present in the visualized knee. Procedure Note Provider, [facility] - 12/16/2024 * * *Final Report* * * DATE OF EXAM: Dec 11 2024 1:39PM FGX 5332 - XR FEMUR 2V AP/LAT LT / PROCEDURE REASON: multiple diagnoses * * * * Physician Interpretation * * * * CLINICAL: FRACTURE TECHNIQUE: AP AND LATERAL VIEWS OF THE LEFT FEMUR COMPARISON: 08/12/2024 RESULT: Intramedullary vanessa is seen in the distal femur. There is evidence of prior ORIF of the tibia. Tricompartmental narrowing is present in the visualized knee. IMPRESSION IMPRESSION: Status post ORIF of a femur fracture with vanessa and screws and no interval change in alignment or evidence of hardware failure. Event Staff Member: PSCB Transcribe Date/Time: Dec 16 2024 2:31P Dictated by : ENOC DODSON MD This examination was interpreted and the report reviewed and electronically signed by: ENOC DODSON MD on Dec 16 2024 2:33PM EST Authorizing ProviderResult TypeResult StatusAnoscottaixa Escobedoyoly MDRAD-PAMAFinal Result * LIPID PANEL BASIC (03/18/2024 10:45 AM EST)ComponentValueRef RangeTest Method Analysis TimePerformed AtPathologist SignatureCholesterol, Fcrby473<200 mg/dL 03/18/2024 12:38 PM [facility] LABORATORYComment: <200 mg/dL, Desirable 200-239 mg/dL, Borderline high >239 mg/dL, High Zexeadgwhsct38<150 mg/dL03/18/2024 12:38 PM [facility] LABORATORYComment: <150 mg/dL, Normal 150-199 mg/dL, Borderline high 200-499 mg/dL, High >499 mg/dL, Very high HDL Dtskhrtzbrp99>39 mg/dL03/18/2024 12:38 PM [facility] Comment: 40-59 mg/dL, Acceptable >59 mg/dL, High: Negative risk factor for coronary heart disease <40 mg/dL, Low: Positive risk factor for coronary heart disease Non HDL Ldvsdehhimz38<130 mg/dL03/18/2024 12:38 PM [facility] Comment: <130 mg/dL, Optimal 130-159 mg/dL, Near optimal/above optimal 160-189 mg/dL, Borderline high 190-219 mg/dL, High >219 mg/dL, Very high Secondary prevention optimal non HDL Cholesterol levels are recommended to be <100 mg/dL Fasting Xjbz21gja66/03/2024 12:38 PM [facility] LABORATORYVLDL Cholesterol 17<30 mg/dL03/18/2024 12:38 PM [facility] LABORATORYTC:HDL Ratio2.19<5.10 03/18/2024 12:38 [facility] LABORATORYLDL Cholesterol, Fvdetyldbi78<100 mg/dL03/18/2024 12:38 PM [facility] LABORATORYComment: <100 mg/dL, Optimal 100-129 mg/dL, Near optimal/above optimal 130-159 mg/dL, Borderline high 160-189 mg/dL, High >189 mg/dL, Very high Secondary prevention optimal LDL Cholesterol levels are recommended to be < 70 mg/dL LDL:HDL Ratio0.92<2.5403/18/2024 12:38 PM [facility] LABORATORYComment: Reference: 1. National Cholesterol Education Program ATP III Guideline At-A-Glance Quick Desk Reference: National Heart, Lung, and Blood [place]. National Institutes of Health. 2001: NIH Publication No. 01-3305. 2. An International Atherosclerosis Society position paper: global recommendations for the management of dyslipidemia: executive summary, Atherosclerosis. 2014: 232(2):410-413. Specimen (Source)Anatomical Location / LateralityCollection Method / Volume Collection TimeReceived TimeBloodBLOOD SPECIMEN / UnknownVenipuncture / Unknown 03/18/2024 10:45 AM EST03/18/2024 10:46 AM EST Narrative Authorizing ProviderResult TypeResult StatusRuddy Gupta MDLABORATORYFinal ResultPerforming OrganizationAddressCity/State/ZIP CodePhone Number [facility] [address] [facility] [address] [place] [address], [place] * (ABNORMAL) HEMOGLOBIN A1C (POC) (02/06/2024 11:23 AM EDT)ComponentValueRef RangeTest MethodAnalysis TimePerformed AtPathologist SignatureHemoglobin A1C (POCT)6.6(A)4.3 - 5.6 %[facility] SystemComment: Location:[facility], [address], [place], [place], [address] Point of care (POC) Hemoglobin A1c (HGBA1C) testing is intended to assess glucose control and provide a management tool for patients known to have diabetes and their healthcare providers. ??Target HGBA1C levels may depend on specific clinical circumstances. ??POC HGBA1C is not intended for use as a diagnostic or screening test; laboratory-based testing should be used for diagnostic purposes. ??The following information is supplemental and may not be applicable to specific diabetes management situations: ??The POC device aviation manager provides a normal range of 4.2% to 6.5% for the HGBA1C POC test. However, the [place] [employer] ??guidelines indicate that patients with HGBA1C in the range of 5.7% to 6.4% are at increased risk for development of diabetes and that intervention by lifestyle modification may be beneficial. ??A HGBA1C level greater than or equal to 6.5% is considered diagnostic of diabetes, pending confirmatory testing. ??Use of HGBA1C testing to evaluate glucose control may not be appropriate for patients with hemoglobin variants or other conditions (e.g. anemia) that alter red blood cell lifespan. Specimen (Source)Anatomical Location / LateralityCollection Method / Volume Collection TimeReceived TimeBLOOD SPECIMEN / Kpbditq4102/06/2024 11:23 AM EDT Narrative Authorizing ProviderResult TypeResult Deana Gupta MDPOC TESTINGFinal ResultPerforming OrganizationAddressCity/State/ZIP CodePhone Number [facility] POINT OF CARE [facility] [address] [place], [place] * COLONOSCOPY SCREENING (09/21/2021 2:48 PM EDT)Anatomical RegionLaterality ModalityOtherSpecimen (Source)Anatomical Location / LateralityCollection Method / VolumeCollection TimeReceived Time09/21/2021 2:48 PM EDT Narrative 09/21/2021 3:09 PM EDT [facility] Gastrointestinal Endoscopy Patient Name: Khadijah Tobar Procedure Date: 09/21/2021 2:48 PM Date of : 1965 Admit Type: Outpatient Age: 56 Room: [facility] Gender: Female Note Status: Finalized Attending MD: Ishmael Mendez MD Procedure: ? Colonoscopy Indications: ? Screening for colorectal malignant neoplasm Providers: ? Ishmael Mendez MD Patient Profile: ? This is a 56 year old female. Refer to note in ? patient chart for documentation of history and ? physical. Last Colonoscopy: none. The patient's first ? colonoscopy is today. Referring Physician: Jose Galicia (postie) Flora (Referring MD) Medicines: ? Monitored Anesthesia Care Complications: ? No immediate complications. Requesting Provider: Procedure: ? Pre-Anesthesia Assessment: ? - Prior to the procedure, a History and Physical was ? performed, and patient medications and allergies were ? reviewed. The patient's tolerance of previous ? anesthesia was also reviewed. The risks and benefits ? of the procedure and the sedation options and risks ? were discussed with the patient. All questions were ? answered, and informed consent was obtained. Prior ? Anticoagulants: The patient has taken no previous ? anticoagulant or antiplatelet agents. ASA Grade ? Assessment: III - A patient with severe systemic ? disease. After reviewing the risks and benefits, the ? patient was deemed in satisfactory condition to ? undergo the procedure. ? After I obtained informed consent, the scope was ? passed under direct vision. Throughout the procedure, ? the patient's blood pressure, pulse, and oxygen ? saturations were monitored continuously. The ? Colonoscope was introduced through the anus and ? advanced to the cecum, identified by appendiceal ? orifice and ileocecal valve. I was present and ? participated during the entire procedure, including ? non-gordon portions, and during the administration and ? monitoring of Moderate Sedation. The colonoscopy was ? somewhat difficult due to significant looping. ? Successful completion of the procedure was aided by ? withdrawing and reinserting the scope, straightening ? and shortening the scope to obtain bowel loop ? reduction and using scope torsion. The patient ? tolerated the procedure well. The quality of the ? bowel preparation was adequate. The quality of the ? bowel preparation was evaluated using the BBPS ? (Sidney Bowel Preparation Scale) with scores of: ? Right Colon = 2 (minor amount of residual staining, ? small fragments of stool and/or opaque liquid, but ? mucosa seen well), Transverse Colon = 3 (entire ? mucosa seen well with no residual staining, small ? fragments of stool or opaque liquid) and Left Colon = ? 3 (entire mucosa seen well with no residual staining, ? small fragments of stool or opaque liquid). The total ? BBPS score equals 8. Scope Withdrawal Time: 0 hours 11 minutes 8 seconds Findings: ? The perianal and digital rectal examinations were normal. ? The colon (entire examined portion) appeared normal. ? Internal hemorrhoids were found during retroflexion. The hemorrhoids ? were Grade I (internal hemorrhoids that do not prolapse). Impression: ?- The entire examined colon is normal. ? - Internal hemorrhoids. ? - No specimens collected. Recommendation: ?- Repeat colonoscopy with pediatric scope in 10 years ? for surveillance. ? - Discharge patient to home (ambulatory). ? - Resume previous diet today. ? - Continue present medications. Procedure Code(s): ?? --- Professional --- ? 02394, Colonoscopy, flexible; diagnostic, including ? collection of specimen(s) by brushing or washing, ? when performed (separate procedure) Diagnosis Code(s): ?? --- Professional --- ? Z12.11, Encounter for screening for malignant ? neoplasm of colon ? K64.0, First degree hemorrhoids CPT copyright 2019 [employer]. All rights reserved. The codes documented in this report are preliminary and upon industrial maintenance tech review may be revised to meet current compliance requirements. Scope In: 2:48:56 PM Scope Out: 3:03:55 PM MD Ishmael Rosario MD 09/21/2021 3:06:45 PM This report has been signed electronically by Ishmael Mendez MD Number of Addenda: 0 Note Initiated On: 09/21/2021 2:48 PM Estimated Blood Loss: ? Estimated blood loss: none. Authorizing ProviderResult TypeResult StatusBryn Grayson Orellana LICENSED PSYCHIATRIC TECHNICIAN.CNPDIGESTIVE DISEASEFinal Result from Last 3 Months or Most Recently Relevant to Health Maintenance Additional Health Concerns Active ProblemsNoted DateDiagnosed DateAutogenerated Xtkptit9212/23/2024 Autogenerated Ecaheid4012/23/2024 Insurance * Guarantor: [facility], CorporateAccount TypeRelation to Patient Date of BirthPhoneBilling AddressCorporateOther [address] [place] [address] Mail Code [id number] [place] [address] Advance Directives TypeDate RecordedPatient RepresentativeExplanationAdvance Directive(s)01/10/2022 11:16 AM * Full Code (Latest Code Status on File) Date ActivatedDate InactivatedComments08/22/2024 11:04 PM08/28/2024 8:50 PMQuestion AnswerCommentsFull Code Order Discussed With:* Patient * Full Code Date ActivatedDate InactivatedComments10/12/2023 8:12 AM10/20/2023 7:49 PMQuestion AnswerCommentsFull Code Order Discussed With:* Patient * Full Code Date ActivatedDate InactivatedComments06/15/2022 3:36 PM07/21/2022 4:41 PMQuestion AnswerCommentsFull Code Order Discussed With:* Patient * Full Code Date ActivatedDate InactivatedComments06/11/2022 10:23 AM06/15/2022 8:59 AMQuestion AnswerCommentsFull Code Order Discussed With:* Patient Care Teams Team MemberRelationshipSpecialtyStart DateEnd Date Oliva Simons MD [address] [place] [address] PCP - GeneralFamily Ntjsivlf42/28/21 [place] [employer] NEFTALY [place] [facility]06/17/22
--- OUTSIDE RECORDS SUMMARY | 2025-03-04 22:04 | XMS_ITS | Clinical Summary ---
Author Organization [facility] Address [address] [facility] [place] [address] Care Team Providers Care Computer Specialist Name Role Phone Arlene Gaffney MD Unavailable [phone] Daniel August MD Unavailable Source Comments The following information is NOT included in Care Everywhere downloads:Psychiatric notes, ECG results, Cardiac Rehab notes, Pulmonary Function notes, data from [employer] (includes but not limited toPregnancy data,audiograms, eye exams, pre-surgical evaluation notes, well-child exam data).[facility] Allergies Active AllergyReactionsCriticalityNoted XhnsFyedxgccKlzczbzouw88/11/2024 Bjunoepcejgdkda97/11/2024MidazolamHives,UjvsvQemsno33/05/2021OrphenadrineRash, Hives05/12/2022 Medications MedicationSigDispense QuantityRefillsLast FilledStart DateEnd DateStatus [...] 4 mg/0.1 mL nasal liquid Use 1 [place] in one nostril (alternate sides) as needed [...] insulin pen needle 31g x 5 mm [place] for Lantus solostar 100 Each 07/12/2023 9:17 [...] DateHydrocephalus in diseases classified elsewhere 07/13/2023Small bowel npjexrhkfvo11/11/2024 Immunizations ImmunizationAdministration DatesNext DueInfluenza, Injectable, MDCK, Quadrivalent, Preservative (ERP=169)12/26/2018,12/25/2017Influenza, injectable, quadrivalent, preservative free (MRV=572)04/26/2017Influenza, injectable, trivalent, preservative (PUM=044)01/17/2021Influenza, novel J0I6-99, injectable, preservative-free (HLO=545)02/25/2009Pneumococcal polysaccharide 23 Valent (PPSV23) (CVX=33)02/19/2021,09/28/2005TST, unspecified formulation (CVX=98) 05/12/2022 Social History Tobacco UseTypesPacks/DayYears UsedDateSmoking Tobacco: NeverSmokeless Tobacco: Never Tobacco Cessation:Counseling Given: Not Answered [facility] UtilitiesAnswerDate RecordedIn the past 12 months has the [employer], gas, oil, or water company threatened to [...] RecordedIn the past 12 months has the [employer], gas, oil, or water company threatened to shut off services in your home?No07/12/2023CommentsNoSex and Gender InformationValueDate RecordedSex Assigned at BirthNot on fileLegal ZmlHodzgq57/11/2024 2:10 AM EDTGender IdentityNot on fileSexual OrientationNot on file Last Filed Vital Signs Vital SignReadingTime TakenCommentsBlood Whfalrwp070/6204 11:22 AM EDT Yrafq5179 11:22 AM CHOCqdlnslqqhf10.9 ??C (98.4 ??F)07/13/2023 5:47 AM EDTRespiratory Ined334007/13/2023 5:47 AM EDTOxygen Qxqkbxyrfw250%07/26/2023 11:22 AM EDTInhaled Oxygen Concentration--Kqqziy74.3 kg (159 lb 6.3 oz)06/27/2023 8:33 PM HYFLthdzs813.6 cm (5' 6 )06/27/2023 8:33 PM EDTBody Mass Index25.7306/27/2023 8:33 PM EDT Plan of Treatment Health MaintenanceDue DateLast BbwoYfuvgzqmSqahyaotllj01/14/1967Foot Exam 1966Eye Exam1966Lipid Mspvctr4605/31/1966Urine Protein (microalbumin) 1966HIV Test1981Hepatitis C Boithtvd11/14/1985Tdap Baofmns2205/30/1984 Hepatitis A (HAV) Vaccine (optional start 19+ years)1985Hepatitis B (HBV) Vaccine (1 of 3 - 19+ 3-dose series)1985Pap Smear1987Annual Wellness Visit (G0438)04/16/19991796Ewpvgmyqbhc38/14/2007CRC Khvcauwcr79/14/2012Cologuard (Stool DNA)2011FIT2011Shingles (RZV) Vaccine (1 of 2)2016 [...] Jayshree Escalona MD at INPATIENT DEPARTMENTS ConnectorRight: MukmDlazcl68/31/[id number] / / [id number]pigecEzorjv IdentifierShelf Expiration DateModel / Serial / LotStent 7 X 90 Ureteral Single-J [id number] - [id number] Implanted:Qty: 1 on 06/27/2023 by Arlene Gaffney MD at INPATIENT DEPARTMENTS Explanted:Qty: 1 on 07/19/2023 by Darnell Wallace [employer] [id number] / / [id number] Procedures Procedure NamePriorityDate/TimeAssociated DiagnosisCommentsBASIC METABOLIC PANEL STAT07/13/2023 5:31 AM EDT HEMOGLOBIN A1CLab Add-On07/10/2023 3:55 AM EDT from Last 3 Months or Most Recently Relevant to Health Maintenance Results * (ABNORMAL) BASIC METABOLIC PANEL (07/13/2023 5:31 AM EDT)ComponentValueRef RangeTest MethodAnalysis TimePerformed AtPathologist OqifuejtaAnjyasz3279 - 109 mg/dL07/13/2023 5:56 AM EDTM PATHOLOGY GWGIKODPRPHdjskt794292 - 145 mmol/L07/13/2023 5:56 AM EDTM PATHOLOGY LABORATORYPotassium3.53.5 - 5.0 mmol/L07/13/2023 5:56 AM EDTM PATHOLOGY LABORATORYCarbon Qqigpgq5112 - 31 mmol/L07/13/2023 5:56 AM EDTM PATHOLOGY UHGHGXSYQGKzimsrbk885(H)98 - 107 mmol/L07/13/2023 5:56 AM [facility] PATHOLOGY LABORATORYBlood Urea Nitrogen6(L)7 - 25 mg/dL07/13/2023 5:56 AM [facility] PATHOLOGY LABORATORYCreatinine0.40(L)0.60 - 1.20 mg/dL07/13/2023 5:56 AM [facility] PATHOLOGY LABORATORYCalcium8.0(L)8.6 - 10.3 mg/dL07/13/2023 5:56 AM [facility] PATHOLOGY LABORATORYAnion Gap9(L)10 - 20 07/13/2023 5:56 AM [facility] PATHOLOGY LABORATORYEstimated GFR (CKD-EPI)115>=60 mL/min/1.32cvm9807/13/2023 5:56 AM [facility] PATHOLOGY LABORATORYComment: 2020 CKD EPI Equation using [...] Med 1 Vol. 385 Issue 19 Pages 8074-9008 Specimen (Source)Anatomical Location / LateralityCollection Method / Volume Collection TimeReceived TimeBloodBLOOD SPECIMEN / UnknownVenipuncture / Unknown 07/13/2023 5:31 AM EDT07/13/2023 5:34 AM EDT Narrative Authorizing ProviderResult TypeResult StatusAli Christel LU[facility] GENERAL LABFinal ResultPerforming OrganizationAddressCity/State/ZIP CodePhone Number [facility] [address] [place] [address] * (ABNORMAL) HEMOGLOBIN A1C (07/10/2023 3:55 AM EDT)ComponentValueRef RangeTest MethodAnalysis TimePerformed AtPathologist SignatureHemoglobin A1c6.6(H)4.0 - 5.6 %07/10/2023 9:11 PM [facility] PATHOLOGY LABORATORYEstimated Avg Chfbypk289kq/dL07/10/2023 9:11 PM [facility] PATHOLOGY LABORATORYSpecimen (Source)Anatomical Location / LateralityCollection Method / VolumeCollection TimeReceived TimeBloodBLOOD SPECIMEN / UnknownVenipuncture / Jskxffj8507/10/2023 3:55 AM EDT07/10/2023 4:34 AM EDT Narrative Authorizing ProviderResult TypeResult StatusSandy Baghdy DO98 GENERAL LABFinal ResultPerforming OrganizationAddressCity/State/ZIP CodePhone Number [facility] [address] from Last 3 Months or Most Recently Relevant to Health Maintenance Insurance * Guarantor: Maranda Borges TypeRelation to PatientDate of BirthPhone Billing AddressPersonal/LhhhcqXvhi94/14/1966 [facility] [place] [address] Advance Directives * Full Code (Latest Code Status on File) Date ActivatedDate InactivatedComments06/25/2023 5:20 PM07/13/2023 12:31 PM QuestionAnswerCommentsDocumentation of decision process for this code status:* Discussed with patient or surrogate.?? This is the code status chosen by the patient/surrogate. Care Teams Team MemberRelationshipSpecialtyStart DateEnd Date Arlene Gaffney MD [address] [place] [address] PhysicianUrology08/18/23 Daniel August MD [address] [place] [address] [place] [address] PhysicianNeurosurgery08/18/23
--- OUTSIDE RECORDS SUMMARY | 2025-03-04 22:04 | XMS_ITS | Clinical Summary ---
Author Organization [facility] Address [address], [address] [place] [address] Care Team Providers Care Rodding Machine Tender Name Role Phone Oliva Simons MD Primary Care Provider [phone] Allergies Active AllergyReactionsCriticalityNoted DateCommentsCyclobenzaprineHives 07/21/20225928MdqtecjayhIubglddndzawdw26/07/1473QulnrqclsBjkew76/07/2023Orphenadrine Hives09/27/2022 Medications MedicationSigDispense QuantityRefillsLast FilledStart DateEnd DateStatus [...] with esophagitis 09/09/2024Poor control type I diabetes qhjlcbve15/16/2025hronic meningitis 08/29/2024History of raamyvalfxtjm76/16/2025History of recent fall08/29/2024 Absence of both cervix and uterus, hmmwkjse59/08/2025Dependence on wheelchair 08/21/2024Pain in right leg05/17/2024Unsteadiness on feet05/17/2024Pain of left lower /01/2025Pressure injury of sacral region, stage Small bowel dqedwmgjyww90/11/2024Fungal hukszttnl77/10/2023Fungal meningitis 07/24/2022Impaired mobility and activities of daily living dt NTSCI07/23/2022 Fnayctebkhefiw53/09/2023Severe protein-calorie vdlzhhgjobpi57/08/2023Spinal cord mass06/15/2022Lesion of lumbar spine06/10/2022cute and chronic respiratory failure, unspecified whether with hypoxia or odyahowamhv15/11/2023olostomy in place05/23/2022Iron deficiency qhuxeb0205/23/20225012Cuzsuv88/07/2023ognitive communication qfsbwet4005/12/2022Hydrocephalus, /27/2023Insomnia, dhlmkjipssp29/25/2023iabetic ketoacidosis without coma05/10/2022obalamin wrncujcrqk45/04/2023Vitamin D xuqahzmoir39/04/8406Rivhuvqoomvsqp88/26/2022 Nsriksresusoag68/22/8763Awdktdljxhox49/22/4320Zbztxqzizuy94/07/2022 Ojihjnrvnmsmhxra88/07/2022nxiety disorder, ecgoeyxbmxh59/25/2022Low back pain, loorfwfgtxy84/25/2022besity, dhpywwkcdry56/25/2022Malignant neoplasm of bladder, grrancambxn32/24/2022Essential (primary) vxfukvljmgtk81/23/2022sthma 02/16/2021 Overview (07/23/2022): Last Assessment & Plan: [...] DateDiagnosed DateResolved DatePoor control type I diabetes bhdxpfky80 Family History Medical HistoryRelationNameCommentsStrokeFatherHigh Blood PressureMotherOther MotherRelationNameStatusCommentsFatherMother Social History Tobacco UseTypesPacks/DayYears UsedDateSmoking Tobacco: NeverSmokeless Tobacco: Never Tobacco Cessation:Counseling Given: Yes Alcohol UseStandard Drinks/WeekCommentsNever0 (1 standard drink = 0.6 oz pure alcohol)[facility] UtilitiesAnswerDate RecordedIn the past 12 months has the [employer], oil, or water [employer] threatened to shut off services in your [...] homeless or living in a residential (including now)?Yes08/29/2024Food Insecurity AnswerDate RecordedWithin the past 12 months, you worried that your food would run out before you got the money to buymore.Within the past 12 months, the food you bought just didn't last and you didn't have money to get more.Interpersonal Safety Domain Source: IP Abuse ScreeningAnswerDate RecordedPhysical unxocYgcipq20/15/2025Verbal gaoydZtssgk18/15/2025Emotional qklzzRztagg44/15/2025Financial kitoiWjcirq36/15/2025Sexual yxtgqApdvxl17/15/2025 EducationAnswerDate RecordedWhat is the highest level of school you have completed or the highest degree you have received?Associate degree: occupational, technical, or vocational irkykvd3709/09/2024CommentsUnknown Sex and Gender InformationValueDate RecordedSex Assigned at BirthNot on file Legal RbmWhcqsi91/10/2013 11:24 AM ESTGender IdentityNot on fileSexual OrientationNot on fileOccupationIndustryJob Start DateJob End DateNot on fileNot on fileNot on fileNot on file Last Filed Vital Signs Vital SignReadingTime TakenCommentsBlood Fugpispb812/5306/08/2024 8:09 AM EDT Zrcrl4694 8:09 AM SIDZonunujafou81.8 ??C (98.2 ??F)09/18/2024 8:09 AM EDTRespiratory Gsri4402 8:09 AM EDTOxygen Fxidqldfqm34%09/18/2024 8:09 AM EDTInhaled Oxygen Concentration--Pvfaez58.2 kg (187 lb 14.4 oz)09/14/2024 6:15 AM NXEBpkopt886.6 cm (5' 6 )08/28/2024 11:30 PM EDTBody Mass Index30.33 08/28/2024 11:30 PM EDT Plan of Treatment Health MaintenanceDue DateLast DoneCommentsDiabetic foot exam1976Lipids 1976Depression Kcgsfl1505/30/1978HIV aumgcu2305/30/1981Diabetic Alb to Cr ratio (uACR) test1984Diabetic retinal exam1984Hepatitis C screen 1984DTaP/Tdap/Td vaccine (1 - Tdap)1985Hepatitis B vaccine (1 of 3 - 19+ 3-dose series)1985Breast cancer dddhvo1505/30/20060205Kbfmirjmwbj51/14/2012 Colorectal Cancer Fbufol9205/30/2011FIT/FOBT: Average risk2011Fecal-DNA (Cologuard): Average risk2011Sigmoidoscopy/CT vgmdjkrnzozr32/14/2012 Shingles vaccine (1 of 2)2016Pneumococcal 50+ years Vaccine (2 of 2 - PCV) 302/, 02/19/2021, 09/28/2005nnual Wellness Visit (Medicare Advantage)04/16/2024Flu vaccine (#1)0/08/2022, 01/14/2022, 01/17/2021, Additional history existsCOVID-19 Vaccine ( season) 505/, 03/08/2021, 02/21/2021, Additional history olpurrP6Z test (Diabetic or Prediabetic)/, 08/29/2024, 07/21/2022, Additional history existsGFR test (Diabetes, CKD 3-4, OR last GFR 15-59) /08/2024, 09/15/2024, 09/11/2024, Additional history exists Pneumococcal 0-49 years YgrajpkCydwblbpcnoq13/28/2022, 02/19/2021, 09/28/2005 Hepatitis A vaccineAged OutNo longer [...] topic Procedures Procedure NamePriorityDate/TimeAssociated DiagnosisCommentsBASIC METABOLIC PANEL Nknnqoj9709/18/2024 4:56 AM EDT HEMOGLOBIN M3EIlzyfzx19/16/2025 5:08 AM EDT from Last 3 Months or Most Recently Relevant to Health Maintenance Results * (ABNORMAL) Basic Metabolic Panel (09/18/2024 4:56 AM EDT)ComponentValueRef RangeTest MethodAnalysis TimePerformed AtPathologist XsmdvzrkoIodpcz945097 - 144 mEq/L09/18/2024 5:29 AM [facility] LABPotassium4.73.4 - 4.9 mEq/L09/18/2024 5:29 AM [facility] UGWEnadjfox00172 - 107 mEq/L09/18/2024 5:29 AM [facility] WIHAU72037 - 31 mEq/L09/18/2024 5:29 AM [facility] LABAnion Gap99 - 15 mEq/L09/18/2024 5:29 AM [facility] CMIOyqjigi897(H)70 - 99 mg/dL09/18/2024 5:29 AM [facility] BXWIWZ22(H)6 - 20 mg/dL09/18/2024 5:29 AM [facility] LABCreatinine0.900.50 - 0.90 mg/dL09/18/2024 5:29 AM [facility] LABEst, Sue Filt Rate74.0>60009/18/2024 5:29 AM [facility] LABComment: Pediatric calculator link https://www.kidney.org/professionals/kdoqi/gfr_calculatorped Effective Jan [...] secretion. Calcium8.58.5 - 9.9 mg/dL09/18/2024 5:29 AM [facility] Specimen (Source)Anatomical Location / LateralityCollection Method / Volume Collection TimeReceived Time09/18/2024 4:56 AM EDT09/18/2024 5:18 AM EDT Narrative Authorizing ProviderResult TypeResult StatusMark Marie MDCHEMISTRY ORDERABLES Final ResultPerforming OrganizationAddressCity/State/ZIP CodePhone Number [facility] [address] [place] [id number], [facility] [phone] * (ABNORMAL) Hemoglobin A1c (08/29/2024 5:08 AM EDT)ComponentValueRef RangeTest MethodAnalysis TimePerformed AtPathologist SignatureHemoglobin A1C7.0(H)4.0 - 6.0 %08/29/2024 4:48 PM EDSELECT [facility] LABORATORIESEstimated Avg Hsgjnqz661mt/dL 08/29/2024 4:48 PM EDSELECT MEDICAL SPECIALTY [facility]OSPITAL [facility]-FAIR[facility] LABORATORIESComment: The ADA and AACC recommend providing the estimated average glucose result to permit better patient understanding of their HBA1c result. Performed at [facility] [employer], [address] [place] [id number] . Specimen (Source)Anatomical Location / LateralityCollection Method / Volume Collection TimeReceived TimeBloodBLOOD SPECIMEN / Atnqbli4808/29/2024 5:08 AM EDT 08/29/2024 5:27 AM EDT Narrative Authorizing ProviderResult TypeResult StatusHeather Scullin DOCHEMISTRY ORDERABLESFinal ResultPerforming OrganizationAddressCity/State/ZIP CodePhone Number [facility] [address] [place] [address], [facility] [phone] [facility] [address] [place] [address], [facility] [phone] from Last 3 Months or Most Recently [...] DateEnd Date Oliva Simons MD [address] [place] [address] [facility] - Sthpotw09/16/13
--- OUTSIDE RECORDS SUMMARY | 2025-03-04 22:09 | XMS_ITS | CCD ---
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 Name Role Phone Omestella Nayely Unavailable Unavailable Unavailable Unavailable Unavailable Unavailable Unavailable Unavailable Kalli Simons Primary Care Provider [phone] KALLI SIMONS Primary Care Unavailable KALLI SIMONS Referring Unavailable MACI VILLASENOR Referring Unavailable KALLI SIMONS Primary Care Unavailable KALLI SIMONS Primary Care Unavailable KALLI SIMONS Referring Unavailable Omestella, Nayely Unavailable Unavailable Unavailable Unavailable Zarina Mejia Primary Care Provider Kalli Simons MD Primary Care Provider [phone] Kalli Simons MD Primary Care Provider Kalli Simons MD Primary Care Provider DO Juliette Berumen Primary Care Provider MD Raul Montez Emergency Provider MD Jayashree Watts Admit Provider [phone] MD Jayashree Watts Attending Provider Kalli Simons MD Primary Care Provider Juliette Berumen Unavailable YAMEL ., DR CLARE [...] AKOSUA Consulting Unavailable RAGHAV, MARIANELA Admitting Unavailable RONAK, DR KALLI Lou Primary Care Unavailable RAGHAV, [...] Unavailable DO Juliette Berumen Primary Care Provider STEVEN Headley Attending Provider [phone] Kalli Simons Unavailable DO Juliette Berumen Attending Provider [phone] Deandra Roth Primary Care Unavailable Deandra Roth Primary Care Unavailable QUEENIE VILLASENOR Attending Un available Shelbi Lopez Unavailable Unavailable Primary Care Provider UnavailKalli Mcmullen MD Primary Care Provider Arlene Chambers MD Unavailable Daniel Figueroa MD Unavailable HO, BROOKS Admitting [...] Attending Unavailable KALLI SIMONS Primary Care Physician [phone] Tree Craft Attending Unavailable Unavailable Primary Care [...] Care Provider Sharan Dominguez APRN Attending Provider [phone] Juliette Berumen DO Primary Care Provider Juliette Berumen DO Attending Provider Sharan Dominguez APRN Attending Provider Sharan Dominguez APRN Attending Provider Chip Hagen MD Attending Provider [phone] Sharan Dominguez APRN Attending Provider Vladimir Rios MD Attending Provider Sharan Dominguez APRN Attending Provider SCSAPNA CONCEPCIÓN Admitting Unavailable CONCEPCIÓN WAGNER Attending Unavailable SIMONS, KALLI Primary Care Unavailable ALY GUAMAN Consulting Unavailable RAMONITA PARKS Consulting Unavailable SINAN KRISHNAMURTHY Consulting Unavailable Unavailable Primary Care Provider UnavailJuliette Casillas DO Primary Care Provider Maurilio Huynh DO Attending Provider Provider, Outside Attending Provider Unavailable Veronica Rodriguez MD Attending Provider [phone] Madhavi ROUGH PLANER TENDER-CMolly Attending Provider Juliette Berumen DO Attending [...] Primary Care Unavailable Chip Hagen Admitting Unavailable Chip Hagen Attending Unavailable RONAK, KALLI E Primary Care Unavailable DANIELS, NOEL Referring Unavailable LISBETH DANIELSA Attending Unavailable SIMONS, KALLI E Primary Care Unavailable PETERSON GONSALEZ Attending Unavailable SIMONS, KALLI E Primary Care Unavailable LISBETH DANIELSA Attending Unavailable SIMONS, KALLI E Primary Care Unavailable DUSTY DANIELSEYA Attending Unavailable DANIELS, NOEL Referring Unavailable NASEEM BARKSDALE Attending Unavaila ASTRID Robertson Referring Unavailable SIMONS, KALLI E Primary Care Unavailable SIMONS, KALLI E Primary Care Unavailable LISBETH DANIELSA Attending Unavailable DANIELS, NOEL Referring Unavailable SIMONS, KALLI E Primary Care Unavailable SCHWIETERMAN, MARLENE Attending Unavailable ISMARCEL AGOSTOS Referring Unavailable SIMONS, KALLI E Primary Care Unavailable SIMONS, KALLI E Primary Care Unavailable BIANCA LITTLE Attending Unavailable SCHWIETERMAN, MARLENE Referring Unavailable ASTRID NAVA Attending Unavailable SIMONS, KALLI E Primary Care Unavailable SIMONS, KALLI E Primary Care Unavailable LISBETH DANIELSA Attending Unavailable DANIELS, NOEL Referring Unavailable SIMONS, KALLI E Primary Care Unavailable JAMIE MCCARTY Attending Unavailable CARO BRADLEY Referring Unavailable ISJAMIE [...] KALLI E Primary Care Unavailable PADUBIDRI, ANOKHA G Referring Unavailable SIMONS, KALLI E Primary Care Unavailable PADUBIDRI, ANOKHA G Attending Unavailable SIMONS, KALLI E Primary Care Unavailable PADUBIDRI, ANOKHA G Referring Unavailable SIMONS, KALLI E Primary Care Unavailable JUANA MAURILIO CHRISTOPHER Referring Unavailable SIMONS, KALLI E Primary Care Unavailable TAWANA LEIGH Admitting Unavailable CARO BRADLEY Attending Unavailable PADUBIDRI, ANOKHA G Consulting Unavailable AASHISH MONGE Attending Unavailable PADUBIDRI, ANOKHA G Referring Unavailable KALLI SIMONS Primary Care Unavailable DARYL MOREJON Referring Unavailable KALLI SIMONS Primary Care Unavailable Unavailable Unavailable Unavailable Allergies Allergy ClassificationReported Allergen(s)Allergy TypeDate of OnsetReaction(s) FacilityBenzodiazepines (2 sources)MidazolamDrug Wcouczh13-80-8021Ffgcar Status ChangeMer[facility] cyclobenzaprine (3 sources)cyclobenzaprine; Translations: [Flexeril]Drug Ksgpgvm71-78-6908Jhrgt WQ-Bsdcxzsifehnh-PPX [place] [address] Work Phone: opioid Agonists (3 sources)Meperidine; Translations: [Demerol SOLN]Drug Diwslvn29-42-0719RA UpsetMercy Health [facility] Hospital Work Phone: Orphenadrine (1 source)Orphenadrine; Translations: [Norflex]Drug AllergyRas RW-Oibcjpmivaitl-AOP [place] [address] Work Phone: (20 sources)cyclobenzaprine; Translations: [Flexeril]Drug Ahzbpci09-89-1468kzpymTol[facility] (20 sources)Meperidine; Translations: [Demerol SOLN]Drug Inbzqhq26-05-6062HT Upset, [facility] (20 sources)Orphenadrine; Translations: [Norflex][facility]rug [facility]ergyMer[facility] (20 sources)cyclobenzaprine; Translations: [CYCLOBENZAPRINE]Drug Allergy 97-56-5867GhpkoHxxxprsbd Clinic (20 sources)Midazolam; Translations: [MIDAZOLAM]Drug Poucybc96-97-1218Uyhbfg Status Change, Hives, OtherMer[facility] (20 sources)Meperidine; Translations: [MEPERIDINE]Drug Ijchafc70-91-2894 Dizziness, Dizziness, rashFirOhioHealth Grove City [facility] (2 sources)Meperidine; Translations: [Demerol]Drug Ipgzrey23-11-9487[facility]Main [facility] (1 source)MidazolamDrug AllergyMain Campus Medical Center Repository (20 sources)Orphenadrine; Translations: [ORPHENADRINE]Drug Vnczirj31-23-0862 [facility] Repository (20 sources)OrphenadrineDrug Eqnkgmj82-65-0260Tklq, Hives, Other: See Comments [facility] (1 source)No Known Medication Allergies; Translations: [No Known Medication Allergies]Propensity to adverse reactions (disorder)[facility] Repository (1 source)cyclobenzaprineDrug Bwexvlg10-07-2946VezbzdbutUniversity [facility]als [facility] Repository (1 source)MidazolamDrug Hfwqdcq67-04-6420TmewwlvoaUniversity Hospitals [facility] Repository (1 source)OrphenadrineDrug Cqpgmbv00-11-2951QyadhiembUniversity Hospitals [facility] Repository Medications Current Medications MedicationDrug Class(es)DatesSig (Normalized)Sig (Original)acetaminophen 325 mg oral tablet (20 sources)Start: 85-30-5559nmpq 2 tablets by mouth every six hours as needed acetaminophen (TYLENOL) 325 mg tablet Take 2 tablets by mouth every 6 hours as needed for pain. 08/28/2024 ActiveStart: 51-09-4968sdsi 2 tablets enteral route every six hours as neededacetaminophen (TYLENOL) 325 mg tablet 2 tablets by ORAL/FEEDING TUBE route every 6 hours as needed for pain. 10/20/2023 Suspended Start: 67-54-7198wcil 1 tablet by mouth every six hoursAcetaminophen 325 mg tablet Active 325 MG PO Every 6 hours July 16, 2023 12:00am Complies with drug therapyStart: 07-12-2023 End: 71-04-6603nqabblsnupfym (TYLENOL) 325 mg tablet 2 Tablets by [...] Pain (pain score 4,5,6) Start: 06-27-2023 End: 01-88-2120463 mg, NG Tube, EVERY 4 HOURS PRN, Starting on Sun06/27/23 at 2055, Until Sun07/02/23 at 0818, Mild Pain (pain score 1,2,3)Start: 06-15-2022 End: 83-46-8010fydr 2 tablets by mouth every six hours as neededacetaminophen (TYLENOL) 325 mg tablet Take 2 tablets by mouth every 6 hours as needed for pain. 06/15/2022 10/20/2023 DiscontinuedStart: 89-91-7870mkou 2 tablets by mouth every six hours as neededacetaminophen (TYLENOL) 325 mg tablet Take 2 tablets by mouth every 6 hours as needed for pain. 0 12/30/2021 ActiveStart: 04-30-2021 End: 28-64-2230vcgp 2 tablets by mouth every six hours as needed for pain Acetaminophen 500 mg tablet Discontinued 1000 MG PO Every 6 hours as needed for Pain April 30, 2021 1:00am August 08, 2022 1:28pmStart: 04-30-2021 End: 99-77-9807xkfp 1000 mg by mouth every six hoursAcetaminophen Discontinued 1000 MG PO Every 6 hours April 30, 2021 1:00am August 08, 2022 1:28pmStart: 02-19-2021 End: 91-29-5002arbm 2 tablets by mouth every six hours [...] 10 mg oral tablet (9 sources)Opioid AgonistStart: 16-41-3382dzmr 1 tablet by mouth every four hours as needed for painHydrocodone-Acetaminophen 10-325 mg tablet Active 1 TAB PO Every 4 hours as needed for pain November 19, 2024 12:00am Complies with drug therapyStart: 09-26-2024 End: 69-43-3620zxdi 1 tablet by mouth every four hours as neededHYDROcodone- Acetaminophen (NORCO) 10-325 mg per tablet Take 1 tablet by mouth every 4 hours as needed. 09/26/2024 10/26/2024 ActiveStart: 55-14-4271NUVESBN 5 MG-500 MG TAB as necessary 0 04/25/2005 ActiveComment on above:as necessaryaspirin 81 mg oral tablet (20 sources)Platelet Aggregation Inhibitor, Nonsteroidal Anti-inflammatory Drug Start: 84-65-2003tqls 1 tablet by mouth once dailyAspirin 81 mg tablet Active 81 MG PO Daily November 19, 2024 12:00am Complies with drug therapyStart: 10-25-2023 End: 80-80-1337vgtx 1 tablet by mouth twice daily, then take 1 tablet by mouth twice dailyaspirin, enteric coated (ADULT LOW DOSE ASPIRIN) 81 mg EC tablet Take 1 tablet by mouth two times aday for 28 days, THEN 1 tablet two times a day. 60 tablet 08/28/2024 03/24/2025 ActiveStart: 02-18-2021 End: 20-74-3040rsxs 1 tablet by mouth every twenty-four hoursaspirin 325 mg tablet Take 1 tablet by mouth q 24 HR. You may stop that Aspirin 81mg and resume theAspirin 325mg 10 days after surgery if your urine is clear. 02/18/2021 06/14/2022 DiscontinuedStart: 99-12-1818qkfi 1 tablet by mouth once dailyAspirin 325 MG Oral Tablet TAKE TABLET Daily Quantity: 0 Refills: 0 Ordered: 18-Feb-2019 DO Start : 18-Feb-2019 ActiveStart: 87-18-1440VIMLRCJ 81 MG TAB Take one (1) tablet daily . 0 04/25/2005 Active End: 37-55-4732idam 1 tablet by mouth once dailyaspirin, enteric [...] mg oral tablet (20 sources)gamma-Aminobutyric Acid-ergic AgonistStart: 35-96-1101sghr 1 tablet by mouth twice daily for muscle spasms and muscle spasms, then take 2 tablets by mouth once daily at bedtime for muscle spasms and muscle spasmsBaclofen 10 mg tablet Active 10 MG PO Daily November 19, 2024 12:00am 1 tablet BID for spasms, 2 tablets QHS for spasms Complies with drug therapyStart: 08-12-2024 End: 46-67-8101vrpe 1 tablet by mouth twice daily, then take 2 tablets by mouth once daily at bedtimebaclofen 10 mg tablet Take 1 tablet by mouth two times a day AND 2 tablets daily at bedtime. 120 tablet 2 08/12/2024 11/10/2024 Active Start: 04-04-2024 End: 31-20-1887oevk 1 tablet by mouth twice dailyBaclofen 10 mg tablet Discontinued 10 MG PO Twice daily 180 90 April 04, 2024 1:50pm May 222024 1:08pm End: 65-03-4493wsgycixt 10 mg tablet Take 10 mg by mouth three times a day. 89ky-58on-90vw Active End: 36-56-0372yepo 1 tablet by mouth twice dailybaclofen 5 [...] ophthalmic solution (1 source)Diagnostic DyeStart: 12-23-2024 End: 38-00-6539ethjyummgme-benoxinate 0.3-0.4 % 1 drop (FLURESS)cholecalciferol 0.025 mg oral capsule (20 sources)Vitamin DStart: 76-11-5168iqob 1 capsule by mouth once daily Cholecalciferol (Vitamin D3) 25 mcg (1,000 unit) capsule Active 25 MCG PO Daily November 19, 2024 12:00am Complies with drug therapyStart: 08-08-2022 End: 20-12-2985wrix 1 capsule by mouth once dailyCholecalciferol (Vitamin D3) (Vitamin D3) 50 mcg (2,000 unit) Capsule Discontinued 50 MCG PO Daily August 08, 2022 12:00am July 16, 2023 2:04pmcholecalciferol, vitamin D3, (VITAMIN D3 PO) (13 sources)cholecalciferol, vitamin D3, (VITAMIN D3 PO) Take by mouth. Active docusate sodium 100 mg oral capsule (20 sources)Start: 17-06-9437bppz 1 capsule by mouth once dailyDocusate Sodium (Colace) 100 mg capsule Active 100 MG PO Daily November 19, 2024 12:00am Complies with drug therapyStart: 04-30-2021 End: 97-44-0110mjkg 1 capsule by mouth twice dailyDocusate Sodium 100 mg capsule Discontinued 100 MG PO Twice daily April 30, 2021 1:00am August 08, 2022 1:28pmStart: 02-19-2021 End: 14-65-0439khfv 1 capsule by mouth twice dailydocusate sodium (COLACE) 100 mg capsule Take 1 capsule by mouth twice daily. 60 capsule 02/19/2021 03/21/2021 Expiredtake 100 mg by mouth once dailyDOCUSATE SODIUM PO Take 100 mg by mouth once daily. Activedocusate sodium 50 mg / sennosides, correction 8.6 mg oral tablet (20 sources)Start: 34-94-4853dewo 1 tablet by mouth twice dailysenna-docusate (SENNA-S) 8.6-50 mg per tablet 1 tablet by ORAL/FEEDING TUBE route two times a day. 10/20/2023 ActiveStart: 34-85-3686dkvx 1 tablet by mouth twice dailysenna- docusate (SENNA-S) 8.6-50 mg per tablet Take 1 tablet by mouth two times a day. 0 10/10/2023 Suspendeddoxycycline hyclate 100 mg oral capsule (19 sources)Tetracycline-class DrugStart: 24-36-4586rwsw 1 capsule by mouth once dailyDoxycycline Hyclate 100 mg capsule Active 100 MG PO Daily December 26, 2024 12:00pm Complies with drug therapyStart: 12-18-2024 End: 91-56-6007gvxj 1 capsule by mouth twice dailyDoxycycline Hyclate 100 mg capsule Discontinued 100 MG PO Twice daily 02 02December 18, 2024 12:00am December 26, 2024 12:01pmStart: 07-16-2024 End: 97-05-7779rvao 1 capsule by mouth twice dailyDoxycycline Hyclate 100 mg capsule Discontinued 100 MG PO Twice daily July 16, 2024 12:00amApril 2024 2:29pmStart: 05-06-2024 End: 19-28-4135yjvj 1 tablet by mouth twice dailyDoxycycline Hyclate 100 mg tablet Discontinued 100 MG PO Twice daily 02 02May 06, 2024 1:00am May 20, 2024 3:28pmDrug or medicament (substance) (2 sources)Start: 41-76-8593Omtjgxes on [facility] 07/12/23 at 0830 Insulin Type (in pump): insulin aspart (NOVOLOG) Patient or responsible caregiver may maintain, in conjection with ordering provider: Yes Use previous home settingsStart: 37-12-5334QERFTZFL, BISACODYL, RECTAL (20 sources)DULCOLAX, BISACODYL, RECTAL by RECTAL route once daily as needed. SuspendedDULCOLAX, BISACODYL, RECTAL by RECTAL route once daily as needed. Activeenteric contrast (will be provided with radiology test) (4 sources)Start: 11-30-2021 End: 94-02-4986whmemco contrast (will be provided with radiology test) Indications: Pelvic and perineal pain For CT PELVIS W IVCON order Administer, As Directed One Time Only, via Oral, Rectal, both Oral and Rectal, Enteric Tube, Stoma or Indwelling Catheter, Enteric Contrast as designated per enteric contrast guidelines 1 Each 0 11/30/2021 12/01/2021 ActiveStart: 11-30-2021 End: 78-48-3030leztbhd contrast (will be provided with radiology test) For CT PELVIS W IVCON order Administer, As Directed One Time Only, via Oral, Rectal, both Oral and Rectal, Enteric Tube, Stoma or Indwelling Catheter, Enteric Contrast as designated per enteric contrast guidelines 1 Each 0 11/30/2021 12/01/2021 ActiveStart: 10-11-2021 End: 35-70-5961dwxjisl contrast (will be provided with radiology test) [...] Activehydrocortisone 25 mg/ml topical cream (7 sources)CorticosteroidStart: 46-60-9610Ehbzbmvckjejju 2.5 % cream with perineal applicator Active 1 APPLIC IA 2-4 TIMES PER DAY as needed for hemorrhoids 12 02June 20, 2024 1:00am Complies with drug therapyhydrophilic wound dressing (TRIAD) PSTE external paste (1 source)Start: 18-73-7200yvekwywlyvx wound dressing (TRIAD) PSTE external paste Apply externally 2 times daily. 0 06/26/2023ctiveInsulin Aspart U-100 100 unit/mL solution (8 sources)Start: 90-49-0961Gvwgunt Aspart U-100 100 unit/mL solution Active 0 .ROUTE .COMPLEX March 11, 2024 9:39am USE IN INSULIN PUMP DAILYStart: 15-48-5537Oyszjfm Aspart U-100 100 unit/mL solution Active 0 .ROUTE .COMPLEX March 11, 2024 8:39am USE IN INSULIN PUMP DAILY3 ml insulin glargine 100 unt/ml pen injector (20 sources)Insulin AnalogStart: 51-13-4719olvsbyc glargine (LANTUS SOLOSTAR/BASAGLAR KWIKPEN) 100 UNIT/ML pen Inject 30 Units under the skin at bedtime. Keep on hand for emergency use 30 mL 07/12/2023 ActiveStart: 07-10-2023 5 Units, Subcutaneous, Once, 1 dose, On Sun07/10/23 at 1400Start: 07-09-2023 End: 65-23-0845gwfyyc 25 [IU] by subcutaneous injection twice daily25 Units, Subcutaneous, 2 times daily, First dose (after last modification) on Sun07/09/23 at 0900,Until DiscontinuedStart: 07-05-2023 End: 42-99-1047uiatkr 20 [IU] by subcutaneous injection twice daily20 Units, Subcutaneous, 2 times daily, First dose (after last modification) on Sun07/05/23 at 2100,Until DiscontinuedStart: 07-03-2023 End: 17-31-1810tchbhh 25 [IU] by subcutaneous injection twice daily25 Units, Subcutaneous, 2 times daily, First dose (after last modification) on Sun07/03/23 at 2100,Until DiscontinuedStart: 07-01-2023 End: 56-00-9774gwhlvb 30 [IU] by subcutaneous injection twice daily30 Units, Subcutaneous, 2 times daily, First dose (after last modification) on Sun07/01/23 at 2100,Until DiscontinuedStart: 06-30-2023 End: 01-09-9083shusmz 35 [IU] by subcutaneous injection twice daily35 Units, Subcutaneous, 2 times daily, First dose (after last modification) on Sun06/30/23 at 2100,Until DiscontinuedStart: 06-29-2023 End: 49-24-4597ehnazb 30 [IU] by subcutaneous injection twice daily30 Units, Subcutaneous, 2 times daily, First dose (after last modification) on Sun06/29/23 at 2100,Until DiscontinuedStart: 06-28-2023 End: 38-18-2652tldrwx 20 [IU] by subcutaneous injection twice daily20 Units, Subcutaneous, 2 times daily, First dose (after last modification) on Alejandra 06/28/23 at 1130,Until DiscontinuedStart: 06-27-2023 End: 17-83-0051gteysc 4 [IU] by subcutaneous injection at bedtime4 Units, Subcutaneous, AT BEDTIME, First dose (after last modification) on Sun06/27/23 at 2200, Until DiscontinuedStart: 06-26-2023 End: 21-32-6514gcvelu 30 [IU] by subcutaneous injection once daily in the nujhjnx84 Units, Subcutaneous, EVERY MORNING, First dose (after last modification) on Sun07/11/23 at 0900,Until DiscontinuedStart: 64-38-5985xmwqju 9 [IU] by subcutaneous injection at bedtimeinsulin glargine (LANTUS SOLOSTAR/BASAGLAR KWIKPEN) 100 UNIT/ML pen Inject 9 Units under the skin at bedtime. 15 mL 5 06/26/2023 ActiveStart: 08-08-2022 End: 28-07-2608Kijxvfi Glargine (Lantus Solostar U-100 Insulin) 100 unit/mL (3 mL) insulin pen Discontinued 18 UNIT SUBCUT Bedtime August 08, 2022 12:00am July 16, 2023 2:04pmStart: 07-20-2022 End: 76-18-9280yijgtg 18 [IU] by subcutaneous injection once daily at bedtime insulin glargine 100 unit/mL (3 mL) Inject 18 Units subcutaneously daily at bedtime. 6 mL 07/20/2022 01/15/2023 DiscontinuedStart: 07-20-2022 End: 62-53-7572glvewd 18 [IU] by subcutaneous injection once daily at bedtime insulin glargine 100 unit/mL (3 mL) Inject 18 Units subcutaneously daily at bedtime. 6 mL 0 07/20/2022 01/15/2023 DiscontinuedStart: 06-15-2022 End: 58-07-4929nhnvjoo glargine (LANTUS SOLOSTAR, BASAGLAR KWIKPEN) 100 unit/mL (3 mL) Inject 17 Units subcutaneously every morning. 15 mL 0 06/15/2022 07/20/2022 DiscontinuedStart: 01-14-2022 End: 40-01-4053yqiwdy 25 [IU] by subcutaneous injection once daily in the morninginsulin glargine (LANTUS) 100 unit/mL injection Inject 25 Units subcutaneously every morning. 10 mL0 01/14/2022 ActiveStart: 91-40-1448xeofrs 15 [IU] by subcutaneous injection every twelve hours, then inject 100 [IU] by subcutaneous injectionLantus SoloStar 100 UNIT/ML Subcutaneous Solution Pen- injector INJECT, subcutaneously, 15 UNITS every 12 hours Quantity: 3 Refills: 5 Omoregie PA-C, Nayely Start : 18-Feb-2019 Active 3 ML PenStart: 10-94-0736cakkkq 14 [IU] by subcutaneous injection every twelve hours, then inject 100 [IU] by subcutaneous injectionBasaglar KwikPen 100 UNIT/ML Subcutaneous Solution Pen- injector please inject 14 units every 12 hours Quantity: 3 Refills: 5 Omoregie PA-C, Nayely Start : 18-Feb-2019 Active 3 ML PenComment on above:Inject 25 Units subcutaneously every morning.Inject 17 Units subcutaneously every morning. Inject 18 Units subcutaneously daily at bedtime.insulin aspart, human 100 unt/ml injectable solution (20 sources)Insulin AnalogStart: 76-59-5578Lyyqbwa Aspart U-100 100 unit/mL solution Active 0 .ROUTE .COMPLEX March 11, 2024 9:39am USE IN INSULIN PUMP DAILY Complies with drug therapyStart: 63-15-4473zwayjtl aspart U-100 (NOVOLOG) 100 unit/mL Use via insulin pump Max daily dose 100 units, DX: E10.65 10/20/2023 ActiveStart: 04-30-2021 End: 23-36-5186Kfrcwuw Aspart U-100 (Novolog U-100 Insulin Aspart) 100 unit/mL solution Discontinued 0 .ROUTE .COMPLEX April 30, 2021 1:00am March 11, 2024 9:39am patient has insulin pumpStart: 12-06-2020 End: 25-02-8203IDSGNRD U-100 INSULIN ASPART 100 unit/mL 12/06/2020 01/14/2022 DiscontinuedStart: 77-16-7587YkbgPJP 100 UNIT/ML Subcutaneous Solution USE DIRECTED IN INSULIN PUMP. USE UP TO A MAXIMUM OF 70 UNITS DAILY Quantity: 60 Refills: 3 Ordered: 01-Feb-2021 Omestella HIGHTOWER Nayely Start : 30-Sep-2020 ActiveStart: 29-16-3631qajrua 70 [IU] by subcutaneous injection onceNovoLOG 100 UNIT/ML Subcutaneous Solution USE DIRECTED PER PUMP, UP TO 70 UNITS A DAY Quantity: 6 Refills: 3 Ordered: 27-Apr-2020 Carmenestella HIGHTOWER Nayely Start : 29-Apr-2019 ActiveStart: 80-17-4800brzkbj 50 [IU] by subcutaneous injection once NovoLOG [...] mg oral capsule (3 sources)Start: 12-12-2024 End: 56-25-3684maesdxphqyyzlar sulfate (CRESEMBA) 186 mg capsule Take 2 capsules by mouth as directed. Take two (2) capsules by mouth every 8 hours for 6 doses, then two (2) capsules per day. 180 capsule 2 12/12/2024 03/12/2025 Activeiv contrast (will be provided with radiology test) (20 sources)Start: 09-12-2024 End: 97-62-0794bt contrast (will be provided with radiology test) [...] 1 each 09/12/2024 09/13/2024 ActiveStart: 09-12-2024 End: 21-17-1782vk contrast (will be provided with radiology test) [...] 1 each 09/12/2024 09/13/2024 ActiveStart: 09-18-2023 End: 31-27-9593wjbcco 1 dose intravenously onceiv contrast (will be [...] Each 0 09/18/2023 09/19/2023 ExpiredStart: 09-18-2023 End: 94-06-0326ad contrast (will be provided with radiology test) [...] Each 0 09/18/2023 09/19/2023 ExpiredStart: 09-18-2023 End: 44-88-3364dxorzs 1 dose intravenously onceiv contrast (will be [...] Each 0 09/18/2023 09/19/2023 ExpiredStart: 09-18-2023 End: 67-84-2231bi contrast (will be provided with radiology test) [...] Each 0 09/18/2023 09/19/2023 ExpiredStart: 09-18-2023 End: 69-10-2759fdrwkd 1 dose intravenously onceiv contrast (will be [...] Each 0 09/18/2023 09/19/2023 ActiveStart: 09-18-2023 End: 32-32-9167ui contrast (will be provided with radiology test) [...] Each 0 09/18/2023 09/19/2023 ActiveStart: 09-18-2023 End: 37-34-3427zsxcgw 1 dose intravenously onceiv contrast (will be [...] Each 0 09/18/2023 09/19/2023 ActiveStart: 09-18-2023 End: 10-79-0957ln contrast (will be provided with radiology test) [...] Each 0 09/18/2023 09/19/2023 ActiveStart: 09-12-2023 End: 31-55-4926rs contrast (will be provided with radiology test) [...] Each 0 09/12/2023 09/13/2023 ExpiredStart: 09-12-2023 End: 91-03-0042dl contrast (will be provided with radiology test) [...] Each 0 09/12/2023 09/13/2023 ExpiredStart: 09-12-2023 End: 20-26-6851lu contrast (will be provided with radiology test) [...] Each 0 09/12/2023 09/13/2023 ActiveStart: 09-12-2023 End: 08-29-6573zp contrast (will be provided with radiology test) [...] Each 0 09/12/2023 09/13/2023 ActiveStart: 09-06-2023 End: 14-53-0416uzwvre 1 dose intravenously onceiv contrast (will be [...] Each 0 09/06/2023 09/07/2023 ActiveStart: 01-09-2023 End: 14-31-5466jb contrast (will be provided with radiology test) [...] Each 0 01/09/2023 01/10/2023 ActiveStart: 01-09-2023 End: 52-94-3263dx contrast (will be provided with radiology test) [...] Each 0 01/09/2023 01/10/2023 ActiveStart: 07-19-2022 End: 82-52-0094gellqm 1 dose intravenously onceiv contrast (will be [...] Each 0 07/19/2022 07/20/2022 ActiveStart: 07-19-2022 End: 11-32-7691fn contrast (will be provided with radiology test) [...] Each 0 07/19/2022 07/20/2022 ActiveStart: 07-19-2022 End: 36-67-0464id contrast (will be provided with radiology test) [...] Each 0 07/19/2022 07/20/2022 ActiveStart: 07-19-2022 End: 71-25-9180vbonjh 1 dose intravenously onceiv contrast (will be [...] Each 0 07/19/2022 07/20/2022 ActiveStart: 05-02-2022 End: 06-72-7290jb contrast (will be provided with radiology test) [...] Each 0 05/02/2022 05/03/2022 ActiveStart: 05-02-2022 End: 24-46-9631wj contrast (will be provided with radiology test) [...] Each 0 05/02/2022 05/03/2022 ActiveStart: 01-31-2022 End: 42-83-4919lc contrast (will be provided with radiology test) [...] 0 01/31/2022 02/01/2022 Active Start: 11-30-2021 End: 39-70-6589cs contrast (will be provided with radiology test) [...] Each 0 11/30/2021 12/01/2021 ActiveStart: 11-30-2021 End: 51-93-6894dc contrast (will be provided with radiology test) [...] 0 11/30/2021 12/01/2021 Active Start: 11-30-2021 End: 63-05-5654jd contrast (will be provided with radiology test) [...] 0 11/30/2021 12/01/2021 Active Start: 10-11-2021 End: 00-10-6184vi contrast (will be provided with radiology test) [...] MRcontrast administration guidelines link. Lactobacillus (16 sources)Start: 70-98-9270dwbr 1 capsule by mouth once dailyLACTOBACILLUS ORAL Take 1 Capsule by mouth daily. 06/15/2022 ActiveStart: 99-93-8270zqvs 1 capsule by mouth once dailyLACTOBACILLUS ORAL Take 1 Capsule by mouth daily. 0 06/15/2022 ActiveStart: 29-59-9026ebjj 1 capsule by mouth once daily LACTOBACILLUS ORAL Take 1 Capsule by mouth daily. 0 06/15/2022 Suspended lactobacillus acidophilus [id number] unt oral capsule (3 sources)Start: 93-04-0425xolq 1 capsule by mouth once dailyLactobacillus Acidophilus capsule Active 10 MG PO Daily November 19, 2024 12:00am Complies with drugtherapyStart: 82-95-9298wtjp 1 capsule by mouth once dailyLactobacillus Acidophilus capsule Active 10 MG PO Daily November 19, 2024 12:00am Complies with drugtherapylisinopril 40 mg oral tablet (20 sources)Angiotensin Converting Enzyme InhibitorStart: 01-20-2025 End: 38-47-9233ghlr 1 tablet by mouth once dailyStart: 08-28-2024 End: 59-32-6112wcqc 1 tablet by mouth once dailylisinopril (ZESTRIL) 5 mg tablet Take 1 tablet by mouth once daily. 30 tablet 08/28/2024 ActiveStart: 04-04-2024 End: 33-43-4485dszj 1 tablet by mouth once dailyLisinopril 40 mg tablet Discontinued 40 MG PO Daily 90 90 April 04, 2024 1:50pm November 19, 2024 10:29amStart: 10-21-2023 End: 26-12-9276bdlw 1 tablet by mouth once dailylisinopril (ZESTRIL) 20 mg tablet 1 tablet by ORAL/FEEDING TUBE route once daily. 10/21/2023 12/04/2023 Discontinued (Other)Start: 07-16-2023 End: 60-32-1921vear 1 tablet by mouth once dailyLisinopril 20 mg tablet Discontinued 20 MG PO Daily July 16, 2023 12:00am April 04, 2024 11:05am Start: 03-21-2023 End: 38-46-1607sdej 20 mg by mouth once daily20 mg, Oral, DAILY, First dose on Sun07/06/23 at 1100, Until Veuqmdnnqzxp04 hr metoprolol succinate 100 mg extended release oral tablet (20 sources)beta-Adrenergic BlockerStart: 93-29-0069xyuz 2 tablets by mouth twice dailyMetoprolol Succinate 100 mg tablet extended release 24 hr Active 50 MG PO Twice daily November 19, 2024 10:29am Complies with drug therapyStart: 11-04-2024 End: 30-22-1750hehp 1 tablet by mouth twice dailyMetoprolol Succinate 100 mg tablet extended release 24 hr Discontinued 0 .ROUTE .COMPLEX 180 November 04, 2024 8:43pm November 19, 2024 10:31am Take 1 tablet by mouth twice dailyStart: 56-30-8003udvq 0.5 tablet by mouth twice dailymetoprolol succinate ER (TOPROL XL) 100 mg Take 0.5 tablets by mouth two times a day. 90 tablet 08/28/2024 ActiveStart: 81-26-8713nfye 100 mg by mouth once mg, Oral, DAILY, First dose (after last modification) on Sun07/01/23 at 0900, Until DiscontinuedStart: 06-29-2023 End: 32-32-8315omhq 50 mg by mouth once daily50 mg, Oral, DAILY, First dose on Sun06/29/23 at 1200, Until DiscontinuedStart: 06-28-2023 End: 23-30-2158kcrz 5 mg intravenously every four hours5 mg, Intravenous Push, EVERY 4 HOURS, First dose on Sun06/28/23 at 0000, Until DiscontinuedStart: 10-21-2022 End: 02-88-3287fjuk 1 tablet by mouth every twelve hours in the morning, then take 6 tablets by mouth in the eveningmetoprolol succinate ER (TOPROL XL) 100 mg Take 1 tablet by mouth every 12 hours at 6 am and 6 pm. 10/20/2023 Suspended Start: 07-28-2022 End: 90-89-8382sxgk 1 tablet by mouth twice dailymetoprolol tartrate, short acting, (LOPRESSOR) 50 mg tablet Take 1 tablet by mouth two times a day. 07/28/2022 12/04/2023 Discontinued (Duplicate Entry)Start: 07-20-2022 End: 26-68-2211xmjl 1 tablet by mouth every twelve hoursmetoprolol tartrate, short acting, (LOPRESSOR) 50 mg tablet Take 1 tablet by mouth every 12 hours. 60 tablet 07/20/2022 01/15/2023 DiscontinuedStart: 02-18-2019 End: 88-16-3412ssec 1 tablet by mouth twice dailyMetoprolol Succinate (Toprol Xl) 100 mg Tablet Extended Release 24 Hr Discontinued 100 MG PO Twice daily April 30, 2021 1:00am April 03, 2024 9:53pmStart: 02-18-2019 End: 20-09-4782izdh 100 mg by mouth every twelve hoursmetoprolol succinate ER (TOPROL XL) 100 mg Take 100 mg by mouth q 12 HR. 02/18/2019 06/14/2022 Disco ntinuedStart: 04-25-2005 End: 36-44-4447FSFWEQ XL 50 MG 24 HR TAB Take one(1) tablet daily. 0 04/25/2005 04/23/2021 DiscontinuedComment on above:Take one(1) tablet daily.Take 100 mg by mouth q 12 HR.Take 1 tablet by mouth q 12 HR.Take 1 tablet by mouth every 12 hours.Take 1 tablet by mouth every 12 hours 6am/6pm.naloxone hydrochloride 40 mg/ml nasal spray (17 sources)Opioid AntagonistStart: 00-02-5320lkbnmkeu 4 mg/0.1 mL nasal liquid Use 1 [place] in one nostril (alternate sides) as needed for Drug Overdose (and call 911). every 2-3 min, until assistance arrives. 2 Each 07/12/2023 Active Start: 54-47-9602Bfxgg: .4 mg, Intravenous Push, PRN, Starting on Sun07/10/23 at 1201, Until Discontinued, Respiratory Rate Less Than 8 for adults and less than 12 for Peds or for suspected overdose, PACU Nowofloxacin 3 mg/ml ophthalmic solution (1 source)Quinolone AntimicrobialStart: 15-59-2526grca 1 drop(s) into the eye(s) four times dailyofloxacin (OCUFLOX) 0.3 % ophthalmic solution One drop in the OPERATIVE EYE only four times a day starting the day before surgery 10 mL 1 12/23/2024 Activeondansetron 4 mg oral tablet (20 sources)Serotonin-3 Receptor AntagonistStart: 35-08-4907rhfi 1 tablet by mouth every six hoursOndansetron Hcl 4 mg tablet Active 4 MG PO Every 6 hours November 19, 2024 12:00am Complies with drug therapyStart: 94-27-8514ebbm 1 tablet by mouth every six hours as neededondansetron orally disintegrating (ZOFRAN ODT) 4 mg disintegrating tablet Take 4 mg by mouth every 6 hours as needed. 11/07/2023 ActiveStart: 67-52-1805nsqe 4 mg intravenously every six hours as needed4 mg, Intravenous Push, EVERY 6 HOURS PRN, Starting on Sun06/29/23 at 1959, Until DiscontinuedStart: 06-26-2023 End: 73-51-1053Lfbsv: 06-25-2023 End: 30-23-7827mrnv 4 mg intravenously every six hours as needed for nausea4 mg, Intravenous Push, EVERY 6 HOURS PRN, Starting on Sun06/25/23 at 0415, Until Sun06/25/23 at 1823, Nausea, VomitingStart: 51-03-8016bltq 1 tablet by mouth every six hours [...] 20 tablet 0 01/06/2022 ActiveStart: 05-05-2021 End: 42-51-3185bqhp 1 tablet by mouth every eight hoursOndansetron Hcl 8 mg tablet Discontinued 8 MG PO Q8H 15 May 05, 2021 1:00am June 10, 2:30pmStart: 04-30-2021 End: 30-12-1016kqbx 1 tablet by mouth every eight hoursOndansetron 8 mg tablet,disintegrating Discontinued 8 MG PO Every 8 hours April 30, 2021 1:00amApril 2022 1:29pmComment on above:Take 1 tablet by mouth every 8 hours as needed for nausea/vomiting.oxyCODONE hydrochloride 5 mg oral tablet (20 sources)Opioid AgonistStart: 11-19-2023 End: 93-63-8937bphg 1 tablet by mouth every four hours as neededoxyCODONE IR (ROXICODONE) 5 mg immediate release tablet Indications: Obstructive hydrocephalus (HCC) Take 1-2 tablets by mouth every 4 hours as needed for pain for up to 7 days. 42 tablet 12/10/2023 12/17/2023 ActiveStart: 11-07-2023 End: 26-06-9597aarc 1 tablet by mouth every six hours as needed for pain and painoxyCODONE IR (ROXICODONE) 5 mg immediate release tablet Indications: Pain Take 1 tablet by mouth every 6 hours as needed for up to 7 days. 28 tablet 0 11/07/2023 11/14/2023 ActiveStart: 10-20-2023 End: 61-32-5226czfp 5-10 mg enteral route every six hours as neededoxyCODONE IR (ROXICODONE) 5 mg immediate release tablet 1-2 tablets by ORAL/FEEDING TUBE route every 6 hours as needed for up to 5 days. 0 10/20/2023 10/25/2023 Active Start: 07-12-2023 End: 25-64-8786qkbQHYEQU 5 MG immediate release tablet 1 Tablet by NG Tube route every 6 hours as needed for up to7 days. 28 Tablet 0 07/12/2023 07/19/2023 ActiveStart: mg, NG Tube, EVERY 6 HOURS PRN, Starting on Sun07/03/23 at 1200, Until Discontinued, Severe Pain (pain score 7,8,9,10)Start: 07-02-2023 End: .5 mg, NG Tube, EVERY 4 HOURS PRN, Starting on Sun07/02/23 at 0817, Until Sun07/03/23 at 1146, Moderate Pain (pain score 4,5,6)Start: 06-27-2023 End: 83-62-699139 mg, NG Tube, EVERY 4 HOURS PRN, Starting on Sun06/27/23 at 2055, Until Sun07/02/23 at 0818, Severe Pain (pain score 7,8,9,10)Start: 06-27-2023 End: 45 mg, NG Tube, EVERY 4 HOURS PRN, Starting on Sun07/02/23 at 0818, Until Sun07/03/23 at 1146, Severe Pain (pain score 7,8,9,10)Start: 41-09-4193ueir 1 tablet by mouth every eight hours [...] water, 6%,, ccf, (2 sources)Start: 04-15-2024 End: 34-55-7023qdhcqt in water, 6%,, ccf, 10 mL by perineural injection route one time only for 1 dose. 10 mL 04/15/2024 04/16/2024 ActiveStart: 12-06-2023 End: 22-10-2534ncnrpq in water, 6%,, ccf, Use 10 mL by perineural injection route one time only for 1 dose. 10 mL 12/06/2023 12/06/2023 Activephenylephrine hydrochloride 25 mg/ml ophthalmic solution (1 source)alpha-1 Adrenergic AgonistStart: 12-23-2024 End: 19-42-9811ZFSCIWtybvqoh 2.5 % 1 drop (AK-DILATE, LUIS-SYNEPHRINE) polyethylene glycol 1450 MW, NF, BASE A, powd (13 sources)polyethylene glycol 1450 MW, NF, BASE A, powd ActivePosaconazole (Noxafil) 300 mg susp,delayed release for recon (12 sources)Start: 52-11-3850chcy 300 mg by mouth once dailyPosaconazole (Noxafil) 300 mg susp,delayed release for recon Active 300 MG PO Daily July 1541:04pmStart: 41-36-0040yzhd 300 mg by mouth once dailyPosaconazole (Noxafil) 300 mg susp,delayed release for recon Active 300 MG PO Daily July 1542:04pmprednisoLONE 5 mg oral tablet (3 sources)Corticosteroid End: 10-02-7026obxz 1 tablet by mouth once dailyprednisoLONE 5 mg tab Take 5 mg by mouth once daily. For 5 days as per list from facility 01/18/2024 Active Probiotic Blend (16 sources)Probiotic Blend Activesennosides, correction 8.6 mg oral tablet (20 sources)Start: 07-02-2023 End: 22-25-8548tiuk 1 tablet by mouth at bedtime as needed for constipationsenna (SENOKOT) 8.6 MG tablet Take 1 Tablet by mouth at bedtime as needed for Constipation for up to 14 days. 14 Tablet 0 07/12/2023 07/26/2023 ActiveStart: 08-08-2022 End: 23-73-5335swxm 1 tablet by mouth once daily as needed for constipation Sennosides (Senokot) 8.6 mg Tablet Discontinued 8.6 MG PO Daily as needed for Constipation August 08, 2022 12:00am July 16, 2023 2:04pmStart: 07-20-2022 End: 19-51-1128hxhs 1 tablet by mouth twice dailysenna (SENOKOT) [...] mL 0 09/12/2023 09/12/2023 ExpiredStart: 07-10-2023 End: 88-29-2053Cbajwbcsbsu, at 75 mL/hr, CONTINUOUS, Starting on Sun07/10/23 at 0000, Until Sun07/10/23 at 1307Start: 01-09-2023 End: 67-45-2791eplcle 1 dose intravenously once0.9 % sodium chloride (NACL 0.9%) infusion Indications: History of bladder cancer Inject 5-30 mL/hrintravenously one time only for 1 dose. Administer at rate defined per CT contrast administration specifications. To be provided with radiology test. 1 Each 0 01/09/2023 01/09/2023 ExpiredStart: 05-02-2022 End: 39-99-7707zgjkwo 1 dose intravenously once0.9 % sodium chloride (NACL 0.9%) infusion Indications: History of bladder cancer Inject 5-30 mL/hrintravenously one time only for 1 dose. Administer at rate defined per CT contrast administration specifications. To be provided with radiology test. 1 Each 0 05/02/2022 05/02/2022 ExpiredStart: 01-31-2022 End: 63-13-3885kmkdhg 1 dose intravenously once0.9 % sodium chloride (NACL 0.9%) infusion Indications: Malignant neoplasm of urinary bladder, unspecified site (HCC) Inject 5-30 mL/hr intravenously one time only for 1 dose. Administer at rate defined per CT contrast administration specifications. To be provided with radiology test. 1 Each 0 01/31/2022 01/31/2022 ActiveStart: 01-06-2022 End: 43-58-7179znnx 1 tablet by mouth three times dailysodium chloride 1 gram tab Take 1 tablet by mouth three times daily for 7 days. 21 tablet 0 01/06/2022 01/13/2022 ActiveStart: 11-30-2021 End: 24-58-8433bdcyxk 1 dose intravenously once0.9 % sodium chloride [...] 100 mg/ml ophthalmic solution (6 sources)Sulfonamide AntibacterialStart: 77-57-2189tnqu 2 drop(s) into the eye(s) four times dailySulfacetamide Sodium 10 % 2 drops Ophthalmic qid for 7 days Jan, ActiveStart: 92-09-7541ozqh 2 drop(s) into the eye(s) four times dailySulfacetamide Sodium 10 % 2 drops Ophthalmic qid for 7 days Jan, ActivetiZANidine 4 mg oral tablet (20 sources)Central alpha-2 Adrenergic AgonistStart: 07-12-2023 End: 95-69-3636iurd 1 tablet by mouth three times daily as neededtizanidine (ZANAFLEX) 4 MG tablet Take 1 Tablet by mouth 3 times daily as needed for up to 14 days.42 Tablet 0 07/12/2023 07/26/2023 ActiveStart: 05-05-2021 End: 56-34-9493thnh 1 tablet by mouth every eight hours as needed for pain Tizanidine 4 mg Tablet Discontinued 4 MG PO Q8H as needed for muscle pain/spasm May 05, 2021 1:00am June 06, 2021 4:51pmtropicamide 10 mg/ml ophthalmic solution (1 source)AnticholinergicStart: 12-23-2024 End: 43-06-7620lbprhaggpuu 1 % 1 drop (MYDRIACYL)vitamin b12 1 mg oral tablet (20 sources)Vitamin A83Gkzdd: 90-89-9819yntizflkasivwf (VITAMIN B-12) 1,000 mcg tab Take 1,000 mcg by mouth. 11/07/2023 ActiveWheelchair (W/C) unit (16 sources)Start: 24-78-9850Dgyacvkbcn (W/C) unit Active 0 .Route 1 July 31, 2024 9:57am What's On Foodie-2 Half-Power [facility] Code: [id number]: 07-31-2024 End: 35-54-4034Gnppbznftu (W/C) unit Discontinued 0 .Route 1 July 31, 2024 9:55am July 31, 2024 9:57am What's On Foodie-2 Half-Power [facility] Code: [id number]: 07-31-2024 End: 79-63-9146Nkukjwuouo (W/C) unit Discontinued 0 .Route 1 July 31, 2024 9:53am July 31, 2024 9:55am Superstand llechair Model HPS-2 Half-Power [facility] Code: [id number]: 07-31-2024 End: 94-47-1993Stwvndhxaq (W/C) unit Discontinued 0 .Route 1 July 31, 2024 12:00am July 31, 2024 9:54am Superstand llechair Model HPS-2 Half-Power [facility] Code: K0013 (1 source)Start: 07-12-2023 (1 source)Start: 07-12-2023 Completed/Discontinued Medications MedicationDrug Class(es)DatesSig (Normalized)Sig (Original)Accu-Chek Nadia In Vitro Solution (2 sources)Start: 27-29-3447Shvj-Chek Nadia In Vitro Solution USE DIRECTED. Quantity: 1 Refills: 3 Omoregie PA-C, Nayely Start : 21-Mar-2019 ActiveAccu-Chek Nadia Plus w/Device Kit (2 sources)Start: 06-02-2498Mgon-Chek Nadia Plus w/Device Kit USE DIRECTED. Quantity: 1 Refills: 0 Omoregie PA-C, Nayely Start : 21-Mar-2019 Active acetaminophen 325 mg / oxyCODONE hydrochloride 5 mg oral tablet (18 sources)Opioid AgonistStart: 05-05-2021 End: 37-10-6226tdgg 1 tablet by mouth every six hours as needed for pain Oxycodone-Acetaminophen 5-325 mg Tablet Discontinued 1 TAB PO Q6H as needed for breakthrough pain, severe 20 May 05, 2021 August 08, 2022 1:29pm albuterol 0.83 mg/ml inhalation solution (20 sources)beta2-Adrenergic AgonistStart: .5 mg, Nebulization, EVERY 6 HOURS PRN, Starting on Sun06/29/23 at 1119, Until Discontinued, Shortness of Breath, WheezingStart: 04-25-2005 End: 52-16-4713CGRFIJVNQ 90 MCG/ACTUATION AEROSOL INHALER Use as directed four(4) times daily. 0 04/25/2005 06/15/2022 DiscontinuedComment on above:Use as directed four(4) times daily.2 ml amisulpride 2.5 mg/ml injection (1 source)Start: 07-10-2023 End: 90-29-2863zikw 1 dose intravenously once10 mg, Intravenous Push, ONCE, 1 dose, On Sun07/10/23 at 0900, PACU Nowamitriptyline hydrochloride 10 mg oral tablet (12 sources)Tricyclic AntidepressantStart: 02-25-2024 End: 75-39-4701vwip 1 tablet by mouth once daily at bedtimeAmitriptyline 10 mg tablet Discontinued 10 MG PO Daily at bedtime February 25, 2024 1:00am A ugust 2024 10:24amamLODIPine 2.5 mg oral tablet (20 sources)Dihydropyridine Calcium Channel Dianna End: 07-65-0575rzLWUCBodq (NORVASC) 2.5 mg tablet Take by mouth once daily. 12/04/2023 Discontinued (Other)amoxicillin 875 mg / clavulanate 125 mg oral tablet (19 sources)Penicillin-class AntibacterialStart: 09-25-2023 End: 46-98-4489ofzl 1 tablet by mouth every twelve hoursAmoxicillin-Pot Clavulanate 875-125 mg tablet Discontinued 1 TAB PO Every 12 hours 10 September 25, 2023 12:00am April 29, 2024 2:17pmStart: 17-74-4452svwk 1 tablet by mouth every twelve hoursAmoxicillin-Pot Clavulanate 875-125 MG 1 tablet Orally every 12 hrs for 10 days Feb, ActiveStart: 10-31-2021 End: 92-04-7978kklr 1 tablet by mouth twice dailyamoxicillin-clavulanic acid (AUGMENTIN) 875-125 mg per tablet Take 1 tablet by mouth twice daily for 14 days. 28 tablet 0 10/31/2021 11/14/2021 ActiveComment on above:Take 1 tablet by mouth twice daily for 14 days.atorvastatin 10 mg oral tablet (8 sources)HMG-CoA Reductase InhibitorStart: 12-45-3640ycwq 1 tablet by mouth every twenty-four hoursAtorvastatin Calcium 10 MG 1 tablet Orally Once a day May, Not-Takingbacitracin 0.5 unt/mg topical ointment (20 sources)Start: 08-08-2022 End: 82-58-8226Bfstmslbvc 500 unit/gram Ointment Discontinued 1 APPLIC TOPICAL Daily August 08, 2022 12:00am July 16, 2023 2:05pmStart: 07-20-2022 End: 51-54-8944lkqthiadec 500 unit/gram ointment Apply to affected area twice daily. 28 g 07/20/2022 09/18/2022 End: 41-37-7070ormzfgridi 500 unit/gram pack Apply 1 application to affected area every 24 hours. 0 10/07/2023 DiscontinuedBacitracin 500 UNIT/GM 1 application into the lower eyelid of affected eye Ophthalmic Once a day Active Comment on above:Apply to affected area twice daily.Baqsimi Two Pack 3 MG/DOSE Nasal Powder (1 source)Start: 83-39-9690Tsdxviu Two Pack 3 MG/DOSE Nasal Powder Please use as directed for emergent low hypoglycemia Quantity: 1 Refills: 3 Kimberlyn HIGHTOWER, Nayely Start : 29-Apr-2019 Activeonabotulinumtoxina 100 unt injection (6 sources)Acetylcholine Release InhibitorStart: 07-22-2024 End: 96-24-6337jqswikoskkfo toxin type A 350 Units injection (BOTOX)Start: 07-22-2024 End: 74-22-5604865 Units, INTRAMUSCULAR, ONCE (UP TO 30 DAYS AMB), 1 dose, On Sun07/22/24 at 1630, REFRIGERATE - Pharmaceutical Waste: Lab Pack -Start: 04-15-2024 End: 66-11-6709piwgoyjdpukw toxin type A 400 Units injection (BOTOX)Start: 04-15-2024 End: Units, INTRAMUSCULAR, ONCE (UP TO 30 DAYS AMB), 1 dose, On Sun04/15/24 at 1300, REFRIGERATE - Pharmaceutical Waste: Lab Pack -Start: 01-11-2024 End: 38-02-0692jfoztbvusrlx toxin type A 275 Units injection (BOTOX)Start: 01-11-2024 End: 69-73-8892434 Units, INTRAMUSCULAR, ONCE (UP TO 30 DAYS AMB), 1 dose, On Sun01/11/24 at 1800, REFRIGERATE - Pharmaceutical Waste: Lab Pack -bumetanide 1 mg oral tablet (20 sources)Loop DiureticStart: 11-19-2024 End: 17-00-4185otur 1 tablet by mouth twice dailyBumetanide 1 mg tablet Discontinued 1 MG PO Twice daily November 19, 2024 12:00am November 26, 2024 8 :06amStart: 98-53-7758pbia 1 tablet by mouth twice dailyBumetanide 1 mg tablet Active 0 .ROUTE .COMPLEX April 14, 2024 11:15pm Take 1 tablet by mouth twice daily Complies with drug therapyStart: 20-48-1438agst 1 tablet by mouth every twelve hoursbumetanide (BUMEX) 1 mg tablet Take 1 tablet by mouth every 12 hours. 03/12/2024 ActiveStart: 03-11-2024 End: 11-90-7382omgm 1 tablet by mouth twice dailyBumetanide 1 mg tablet Discontinued 1 MG PO Twice daily 60 30 March 12, 2024 3:17pm April 14, 2024 11:15pmcalcium carbonate 500 mg chewable tablet (20 sources)Start: 07-20-2022 End: 36-53-8035vqub 500 mg by mouth every eight hours [...] meq/ml injectable solution (2 sources)Start: 06-27-2023 End: 78-64-2764Diliqktdnbt, at 100 mL/hr, CONTINUOUS, Starting on Sun06/27/23 at 1000, Until Sun06/27/23 at 2058Start: 06-25-2023 End: 05-84-6644Usftwuixqze, at 150 mL/hr, CONTINUOUS, Starting on Sun06/25/23 at 1224, Until Sun06/26/23 at 0532calcium chloride 0.0014 meq/ml / potassium chloride 0.004 meq/ml / sodium chloride 0.103 meq/ml / sodium lactate 0.028 meq/ml injectable solution (9 sources)Start: 06-29-2023 End: 46-47-8169Mtwhejebpsc, at 100 mL/hr, CONTINUOUS, Starting on Sun06/29/23 at 1230, Until Sun06/29/23 at 1517Start: 06-27-2023 End: 42-86-5325wgua 1 dose intravenously every hour1,000 mL, at 999 mL/hr, Intravenous, FLUID BOLUS, 1 dose, On Sun06/27/23 at 2330Start: 06-26-2023 End: 31-88-6041Jsshj: 06-25-2023 End: 63-04-1023Gzgzznanksj, at 100 mL/hr, CONTINUOUS, Starting on Sun06/27/23 at 2130, Until Sun06/29/23 at 8787229 ml calcium gluconate 20 mg/ml injection (1 source)Start: 07-05-2023 End: ,000 mg, Intravenous, ONCE, 1 dose, On Sun07/05/23 at 0700, at 100 mL/hrceFAZolin 2000 mg injection (1 source)Cephalosporin AntibacterialStart: 07-11-2023 End: ,000 mg, Intravenous, EVERY 8 HOURS ANTIBIOTIC, 2 doses, First dose on Sun07/11/23 at 0800, Last dose on Sun07/11/23 at 1400cefTRIAXone 1000 mg injection (1 source)Cephalosporin AntibacterialStart: 01-30-2022 End: 82-06-9232nsgEJHSEfrt 1 g intramuscular injection (ROCEPHIN)cephalexin 500 mg oral tablet (2 sources)Cephalosporin AntibacterialStart: 11-26-2024 End: 24-07-7347vqhn 1 tablet by mouth three times dailyCephalexin Hcl 500 mg tablet Discontinued 500 MG PO Three times daily November 26, 2024 12:00am December 10, 2024 11:11amciprofloxacin 500 mg oral tablet (10 sources)Quinolone AntimicrobialStart: 11-26-2024 End: 66-28-0165qtab 1 tablet by mouth twice dailyCiprofloxacin Hcl 500 mg tablet Discontinued 500 MG PO Twice daily November 26, 2024 12:00am 2024 11:11amStart: 76-55-0634Skakaukpsavqv HCl 0.3 % 1 application into the lower eyelid of affected eye Ophthalmic tid for 5 day(s) Sep, Not-Taking/PRN Start: 11-43-1117Yelzdpnretmsh HCl 0.3 % 1 application into the lower eyelid of affected eye Ophthalmic tid for 5 day(s) Sep, Not-TakingStart: 02-02-7462itydqtwlgz sodium 0.01 mg/mg topical gel (20 sources)Nonsteroidal Anti-inflammatory DrugStart: 07-20-2022 End: 08-25-7407xzayf 2 g topically every six hours as [...] (20 sources)Angiotensin Converting Enzyme InhibitorStart: 02-18-2019 End: 58-52-1505gldk 1 tablet by mouth once dailyEnalapril Maleate (Vasotec) 20 mg Tablet Discontinued 20 MG PO Daily April 30, 2021 1:00am August 08, 2022 1:28pmStart: 02-18-2019 End: 66-97-9644stvc 1 tablet by mouth every twenty-four hoursenalapril (VASOTEC) 20 mg tablet Take 20 mg by mouth q 24 HR. 02/18/2019 01/04/2022 Discontinued Start: 04-25-2005 End: 79-07-6283QRWSZEG 10 MG TAB Take one(1) tablet daily. 0 04/25/2005 04/23/2021 DiscontinuedComment on above:Take one(1) tablet daily.Take 20 mg by mouth q 24 HR.0.6 ml enoxaparin sodium 100 mg/ml prefilled syringe (2 sources)Low Molecular Weight HeparinStart: 06-29-2023 End: 67-05-720563 mg, Subcutaneous, 2 TIMES DAILY, 21 doses, First dose (after last modification) on Sun06/29/23 at 2100, Last dose on Sun07/09/23 at 2100 Start: 06-28-2023 End: 17-63-6501tcnftt 40 mg by subcutaneous injection twice daily40 mg, Subcutaneous, 2 TIMES DAILY, First dose on Sun06/28/23 at 1100, Until Discontinuedergocalciferol 1.25 mg oral capsule (15 sources)Provitamin D2 CompoundStart: 95-43-5037oxlo 1 capsule by mouth every weekVitamin D (Ergocalciferol) 1.25 MG (03140 UT) Oral Capsule TAKE ONE CAPSULE BY MOUTH ONE TIME PER WEEK Quantity: 12 Refills: 1 Ordered: 04-Aug-2020 Nayely Villasenor PA-C Start : 04-Aug-2020 Activeescitalopram 10 mg oral tablet (2 sources)Serotonin Reuptake InhibitorStart: 72-33-0901GKMLVAC 10 MG TAB Take one(1) tablet daily. 0 04/25/2005 ActiveComment on above:Take one(1) tablet daily.ferrous sulfate 325 mg oral tablet (20 sources)Start: 08-08-2022 End: 70-51-5939rvec 1 tablet by mouth once dailyFerrous Sulfate (Iron) 325 mg (65 mg iron) Tablet Discontinued 325 MG PO Daily August 08, 2022 12:00am November 19, 2024 10:27amStart: 06-16-2022 End: 43-62-3204tvmu 1 tablet by mouth every other dayferrous [...] tablet (20 sources)Histamine-1 Receptor AntagonistStart: 04-25-2005 End: 04-62-9437ekkg 1 tablet by mouth once daily as neededFexofenadine 180 mg tablet Discontinued 180 MG PO Daily as needed for allergy symptoms July 15 12:00am November 19, 2024 10:27am 1 tablet Swallow whole with water; do not take with fruit juicesComment on above:Take one(1) tablet daily.Take by mouth. PRN fluticasone propionate 0.05 mg/actuat metered dose nasal spray (20 sources)CorticosteroidStart: 08-28-2023 End: 33-43-6019vddq 1 spray(s) nasal route twice dailyFluticasone Propionate 50 mcg/actuation spray,suspension Discontinued 0 .ROUTE .COMPLEX August 28, 2023 9:46am November 19, 2024 10:27am USE 1 SPRAY IN EACH NOSTRIL TWICE A DAYStart: 08-01-2023 End: 14-26-1912xrpp 1 spray(s) nasal route twice dailyFluticasone Propionate (Flonase Allergy Relief) 50 mcg/actuation spray,suspension Discontinued 1 SPRAY INTRANASAL Twice daily August 01, 2023 12:00am August 28, 2023 9:46am administer into eachnostrilfluticasone / salmeterol (8 sources)Corticosteroid, beta2-Adrenergic AgonistAdvair Diskus 250/50 250/50 1 puff Inhalation as directed Not-TakingAdvair Diskus 250/50 250/50 1 puff Inhalation as directed ActiveFLUTICASONE PROPION-SALMETEROL INHALATION (4 sources) End: 58-63-2484YQNSHSSGPMI PROPION-SALMETEROL INHALATION Inhale 1 Puff as instructed as needed. 0 10/07/2023 DiscontinuedFLUTICASONE PROPION-SALMETEROL INHALATION Inhale 1 Puff as instructed as needed. 0 Activefurosemide 20 mg oral tablet (20 sources)Loop DiureticStart: 03-10-2024 End: 74-45-0465uesh 1 tablet by mouth twice dailyFurosemide 20 mg tablet Discontinued 20 MG PO Twice daily 60 March 10, 2024 2:03pm 2023 6:10pmStart: 02-29-2024 End: 60-15-1628idoo 1 tablet by mouth once dailyFurosemide 20 mg tablet Discontinued 20 MG PO Daily February 29, 2024 1:00am March 10, 2024 1:12pmgabapentin 300 mg oral capsule (20 sources)Anti-epileptic AgentStart: 11-07-2023 End: 96-32-6643ociyktmapf (NEURONTIN) 300 mg capsule Take 300 mg by mouth. 11/07/2023 01/11/2024 Discontinued (Course of therapy completed)glucagon 3 mg nasal powder (20 sources)Antihypoglycemic AgentStart: 07-16-2023 End: 80-15-4393Pthymhnx 3 mg/actuation spray,non-aerosol Discontinued 3 MG INTRANASAL Daily July 16, 2023 12:00am November 19, 2024 10:27amStart: 06-15-2022 End: 80-82-8969srdqkzgi (BAQSIMI) 3 mg/actuation nasal spray Use 1 [place] in the nose as needed. 06/15/2022 10/07/2023 DiscontinuedStart: 04-29-2019 End: 03-95-6606rbjnuxkv 3 mg/actuation nasal spray (BAQSIMI) 04/29/2019 Active Start: 27-56-0406Xuvmnki Two Pack 3 MG/DOSE Nasal Powder Please use as directed for emergent low hypoglycemia Quantity: 1 Refills: 3 Ordered: 21-Jun-2021 Nayely Villasenor PA-C Start : 29-Apr-2019 ActiveComment on above:Use in the nose as needed.Use 1 [place] in the nose as needed.1 ml heparin sodium, porcine 5000 unt/ml injection (4 sources)Unfractionated Heparin, Anti-coagulantStart: 93-20-4328vckajw 1 mL by subcutaneous injection every twelve hoursheparin 5,000 unit/mL injection Inject 1 mL subcutaneously every 12 hours. To be held before surgery as per [facility] team 0 10/11/2023 SuspendedStart: 06-25-2023 End: ml hydrALAZINE hydrochloride 20 mg/ml injection (1 source)Arteriolar VasodilatorStart: 06-28-2023 End: 36-23-4972oktv 10 mg intravenously every six hours as uhwggi83 mg, Intravenous Push, EVERY 6 HOURS PRN, Starting on Alejandra 06/28/23 at 2016, Until 07/09/23 at 1110, Other, SBP >1601 ml HYDROmorphone hydrochloride 1 mg/ml cartridge (8 sources)Opioid AgonistStart: 07-10-2023 End: .5 mg, Intravenous Push, PACU EVERY 15 MIN PRN X 4 DOSES, 4 doses, Starting on Sun07/10/23 at 0822, Until Sun07/10/23 at 1134, Severe Pain (pain score 7,8,9,10), PACU NowStart: 06-27-2023 End: 19-92-2721cspu 0.4 mg intravenously every four hours as needed for pain0.4 mg, Intravenous Push, EVERY 4 HOURS PRN, Starting on Sun06/27/23 at 205, Until Sun06/29/23 at 205, Breakthrough PainStart: 06-26-2023 End: 44-09-2396Myght: 06-25-2023 End: .3 mg, Intravenous Push, EVERY 4 HOURS PRN, Starting on Sun06/25/23 at 1822, Until Sun06/27/23 at 182, Moderate Pain (pain score 4,5,6), Severe Pain (pain score 7,8,9,10)Start: 06-25-2023 End: mg, Intravenous Push, STAT, 1 dose, On Sun06/25/23 at 1511 Start: 06-25-2023 End: mg, Intravenous Push, STAT, 1 dose, On Sun06/25/23 at 1032 Start: 06-25-2023 End: 98-59-3196rstg 0.5 mg intravenously once0.5 mg, Intravenous Push, ONCE, 1 dose, On Sun06/25/23 at 0511ibuprofen 600 mg oral tablet (20 sources)Nonsteroidal Anti-inflammatory DrugStart: 04-30-2021 End: 71-18-7942Jitxfikko 600 mg tablet Discontinued 800 MG PO Every 6 hours as needed for Pain April 30, 2021 1:00am August 08, 2022 1:28pmStart: 04-30-2021 End: 16-03-9162xrgc 800 mg by mouth every six hoursIbuprofen Discontinued 800 MG PO Every 6 hours April 30, 2021 1:00am August 08, 2022 1:28pmStart: 04-25-2005 End: 21-16-3892KTUAPO 800 MG TAB as necessary 0 04/25/2005 04/13/2021 Discontinuedtake 1 tablet by mouth three times daily as neededMotrin 800 MG 1 tablet prn Orally Three times a day Not-TakingComment on above:as necessary Insulin Aspart U-100 (Novolog U-100 Insulin Aspart) 100 unit/mL solution (15 sources)Start: 04-30-2021 End: 34-00-2782Bboqkqd Aspart U-100 (Novolog U-100 Insulin Aspart) 100 unit/mL solution Discontinued 0 .ROUTE .[facility] April 30, 2021 1:00am March 11, 2024 9:39am patient has insulin pumpStart: 04-30-2021 End: 66-05-6974Xjhxgch Aspart U-100 (Novolog U-100 Insulin Aspart) 100 unit/mL solution Discontinued 0 .ROUTE .[facility] April 30, 2021 12:00am March 11, 2024 8:39am patient has insulin pumpStart: 91-28-3066Jpohgaq Aspart U-100 (Novolog U-100 Insulin Aspart) 100 unit/mL solution Active 0 .ROUTE .[facility] 2021 12:00am patient has insulin pumpStart: 03-03-6172Plnsihl Aspart U-100 (Novolog U-100 Insulin Aspart) 100 unit/mL solution Active 0 .ROUTE .[facility] April 30, 2021 1:00am patient has insulin pumpinsulin detemir 100 unt/ml injectable solution (8 sources)Insulin AnalogStart: 30-50-7804Xecrmvr 100 UNIT/ML as directed Subcutaneous May, Not-Takinginsulin lispro 100 unt/ml injectable solution (20 sources)Insulin AnalogStart: 07-12-2023 End: 68-19-1196injoewc lispro 100 unit/mL injection Inject 300 Units subcutaneously. Not currently on-- using insulin pump 07/12/2023 02/06/2024 Discontinued (Discontinued by another Health Care Provider)Start: Units, Subcutaneous, ONCE, 1 dose, On Alejandra 07/12/23 at 0930Start: 07-10-2023 End: 66-40-6704wlrxhz 3-6 [IU] by subcutaneous injection three times daily before mealtime3-6 Units, Subcutaneous, 3 TIMES DAILY BEFORE MEALS, First dose (after last modification) on Sun07/11/23 at 1700, Until DiscontinuedStart: 06-29-2023 End: 78-16-2049wvcvgi 3-18 [IU] by subcutaneous injection four times daily after mealtime3-18 Units, Subcutaneous, 4 TIMES DAILY AFTER MEALS & AT BEDTIME, First dose (after last modification) on Sun06/29/23 at 1300, Until DiscontinuedStart: 06-26-2023 End: 64-97-5871rxvbaku lispro (HumaLOG) 100 UNIT/ML injection Inject 300 Units into the pump. Draw up 3ml (300U) to fill insulin pump 10 mL 0 07/12/2023 Active Start: 06-26-2023 End: 86-48-9057rmmgqk 2-12 [IU] by subcutaneous injection every six hours2-12 Units, Subcutaneous, Every 6 hours, First dose (after last modification) on Sun06/26/23 at 1800, Until DiscontinuedStart: 07-20-2022 End: 43-39-5137punduaq lispro (HUMALOG U-100 INSULIN) 100 unit/mL injection Inject 0-8 units subcutaneously 3 times daily before meals. Patient to carb count 1 unit per 9 g of carbs 10 mL 1 07/20/2022 03/19/2023 DiscontinuedStart: 07-20-2022 End: 42-83-2826xqkgeja lispro (HUMALOG U-100 INSULIN) 100 unit/mL injection [...] unt/ml injectable solution (1 source)InsulinStart: 07-10-2023 End: 79-06-0688cxccco 1 dose by subcutaneous injection once12 Units, Subcutaneous, ONCE, 1 dose, On Sun07/10/23 at 0900Start: 07-10-2023 End: 53-82-6641yuzyry 1 dose by subcutaneous injection once12 Units, Subcutaneous, ONCE, 1 dose, On Sun07/10/23 at 0900ipratropium bromide 0.042 mg/actuat metered dose nasal spray (20 sources)AnticholinergicStart: 07-16-2023 End: 92-60-3819Wbtofceabmi [place] 42 mcg (0.06 %) spray,non-aerosol Discontinued 2 SPRAY INTRANASAL Three times daily July 16, 2023 12:00am November 19, 2024 10:28amStart: 04-25-2005 End: 85-16-8518RCLVRSLDRBI BROMIDE 0.06 % NASAL SPRAY AEROSOL Use in the nose. 0 04/25/2005 06/14/2022 Discontinuedtake 2 spray(s) nasal route every eight hours ipratropium (ATROVENT) 0.06 % nasal spray Use 2 Sprays in each nostril every 8 hours. Activetake 2 spray(s) nasal route three times dailyIpratropium [place] 0.06 % 2 sprays in each nostril Nasally Three times a day Activetake 2 spray(s) nasal route three times dailyIpratropium [place] 0.06 % 2 sprays in each nostril Nasally Three times a day ActiveComment on above:Take one(1) tablet four (4) times daily.Use in the nose. L.acid-L.casei-B.bif-B.mary beth-FOS (PROBIOTIC BLEND) 2 billion cell-50 mg cap (20 sources)Start: 06-15-2022 End: 75-92-3714thaq 1 capsule by mouth once dailyL.acid-L.casei-B.bif-B.mary beth-FOS (PROBIOTIC BLEND) 2 billion cell-50 mg cap Take 1 capsule by mouth once daily. 100 capsule 06/15/2022 06/26/2023 DiscontinuedStart: 06-15-2022 End: 51-20-0082cedv 1 capsule by mouth once dailyL.acid-L.casei-B.bif-B.mary beth-FOS (PROBIOTIC BLEND) 2 billion cell-50 mg cap Take 1 capsule by mouth once daily. 100 capsule 0 06/15/2022 06/26/2023 DiscontinuedStart: 32-67-2074hqro 1 capsule by mouth once dailyL.acid-L.casei-B.bif-B.mary beth-FOS (PROBIOTIC BLEND) 2 billion cell-50 mg cap Take 1 capsule by mouth once daily. 100 capsule 0 06/15/2022 ActiveStart: 37-02-1638xbmq 1 capsule by mouth once daily L.acid-L.casei-B.bif-B.mary beth-FOS (PROBIOTIC BLEND) 2 billion cell-50 mg cap Take 1 capsule by mouth once daily. 100 capsule 0 06/15/2022 SuspendedStart: 47-38-6539kmkt 1 capsule by mouth once dailyL.acid-L.casei-B.bif-B.mary beth-FOS (PROBIOTIC BLEND) 2 billion cell-50 mg cap Take 1 capsule by mouth once daily. 100 capsule 0 01/06/2022 ActiveComment on above:Take 1 capsule by mouth once daily.labetalol hydrochloride 5 mg/ml injectable solution (1 source)beta-Adrenergic BlockerStart: 06-29-2023 End: 27-07-4320ncpb 20 mg intravenously every six hours as zqqxwe13 mg, Intravenous Push, EVERY 6 HOURS PRN, Starting on Sun06/29/23 at 0257, Until Sun07/09/23 at 1110, SBP >170lidocaine hydrochloride 20 mg/ml mucous membrane topical solution (2 sources)Antiarrhythmic, Amide Local AnestheticStart: 05-78-1004MJNYYNQHD VISCOUS 2 % MUCOSAL SOLN as necessary 0 04/25/2005 ActiveComment on above:as necessaryLORazepam 0.5 mg oral tablet (20 sources)BenzodiazepineStart: 07-16-2023 End: 92-65-6513Dpaecxtuf 0.5 mg tablet Discontinued 0.5 MG PO July 16, 2023 12:00am August 08, 2024 11:29am 1 -2 tablets Orally before MRIStart: 04-25-2023 LORazepam 0.5 MG 1 - 2 tablets Orally before MRI for 1 days Apr, Active Start: 20-50-7274PJFywwval 0.5 MG 1-2 PO Orally Once a day before MRI for 1 days August, ActiveMagnesium (20 sources) End: 78-73-7037ttlx 400 mg by mouth once dailyMAGNESIUM ORAL Take 400 mg by mouth once daily. 0 10/07/2023 Discontinuedtake 400 mg by mouth once daily MAGNESIUM ORAL Take 400 mg by mouth once daily. 0 Activemagnesium hydroxide 80 mg/ml oral suspension (18 sources)Start: 05-05-2021 End: 27-39-1787smya 1 mL by mouth four times daily as needed for constipation Magnesium Hydroxide (Milk Of Magnesia) 400 mg/5 mL suspension Discontinued 10 ML PO Four times daily as needed for constipation 355 May 05, 2021 1:00am August 08, 2022 1:28pmStart: 05-05-2021 End: 07-68-5818qshe 1 mL by mouth four times daily as needed for constipation Magnesium Hydroxide (Milk Of Magnesia) 400 mg/5 mL suspension Discontinued 10 ML PO Four times daily as needed for constipation 355 May 05, 2021 1:00am August 08, 2022 1:28pmStart: 05-05-2021 End: 74-22-9777yqle 1 mL by mouth four times daily as needed for constipation Magnesium Hydroxide (Milk Of Magnesia) 400 mg/5 mL suspension Discontinued 10 ML PO Four times daily as needed for constipation 355 May 05, 2021 12:00am August 08, 2022 12:28pmStart: 05-05-2021 End: 56-06-5682zulb 1 mL by mouth four times dailyMagnesium Hydroxide (Milk Of Magnesia) 400 mg/5 mL suspension Discontinued 10 ML PO Four times daily 355 May 05, 2021 1:00am August 08, 2022 1:28pmStart: 90-34-7006voqu 1 mL by mouth four times dailyMagnesium Hydroxide (Milk Of Magnesia) 400 mg/5 mL suspension Active 10 ML PO Four times daily 355 May 05, 2021 1:00am magnesium oxide 400 mg oral tablet (20 sources)Start: 11-07-2023 End: 62-80-2590rvgagsqwv oxide (MAG-OX) 400 mg (241.3 mg magnesium) tablet Take 800 mg by mouth. 11/07/2023 01/11/2024 Discontinued (Other)100 ml magnesium sulfate 40 mg/ml injection (7 sources)Start: 07-08-2023 End: ,000 mg, Intravenous, ONCE, 1 dose, On Sun07/08/23 at 0730Start: 07-05-2023 End: g (2,000 mg), Intravenous, ONCE, 1 dose, On Alejandra 07/05/23 at 0700 Start: 07-01-2023 End: g (2,000 mg), Intravenous, ONCE, 1 dose, On Sun07/03/23 at 1030 Start: 06-26-2023 End: ,000 mg, Intravenous, ONCE, 1 dose, On Sun06/26/23 at 0630 meloxicam 15 mg oral tablet (16 sources)Nonsteroidal Anti-inflammatory DrugStart: 07-16-2023 End: 42-65-6786npyx 1 tablet by mouth once dailyMeloxicam 15 mg tablet Discontinued 15 MG PO Daily July 16, 2023 12:00am July 17, 2023 2:46pmStart: 71-73-9830usno 1 tablet by mouth every twenty-four hoursMeloxicam 15 MG 1 tablet Orally Once a day for 30 days Apr, ActivemetFORMIN hydrochloride 500 mg oral tablet (20 sources)BiguanideStart: 02-18-2019 End: 74-43-9330tybj 1 tablet by mouth once dailyMetformin 500 mg tablet Discontinued 500 MG PO Daily April 30, 2021 1:00am June 10, 2021 2 :30pm On Hold: resume when you are tolerating a normal dietStart: 26-49-3935gjvk 1 tablet by mouth every twenty-four hoursmetFORMIN HCl ER 500 MG 1 tablet with evening meal Orally Once a day May, Not-TakingComment on above:Take 500 mg by mouth once daily.methocarbamol 500 mg oral tablet (20 sources)Muscle RelaxantStart: 10-20-2023 End: 20-32-9613crsb 1 tablet enteral route every six hours as needed methocarbamol (ROBAXIN) 500 mg tablet 1 tablet by ORAL/FEEDING TUBE route four times a day as needed. 10/20/2023 02/06/2024 DiscontinuedStart: 13-96-1317alsb 500 mg by mouth every eight eurke634 mg, Oral, EVERY 8 HOURS, First dose on Sun07/04/23 at 0730, Until DiscontinuedStart: 07-04-2023 End: 78-07-6833ymok 1 dose by mouth gxlr159 mg, Oral, Once, 1 dose, On Sun07/04/23 at 75722 ml metoclopramide 5 mg/ml prefilled syringe (19 sources)Dopamine-2 Receptor AntagonistStart: 06-25-2023 End: mg, Intravenous Push, STAT, 1 dose, On Sun06/25/23 at 0511 Start: 05-05-2021 End: 86-46-8584oqey 1 tablet by mouth every six hours as needed for nausea Metoclopramide Hcl (Reglan) 10 mg tablet Discontinued 10 MG PO Q6H as needed for nausea 02 09May 05, 2021 1:00am August 08, 2022 1:28pmmetroNIDAZOLE 0.0075 mg/mg topical gel (11 sources)Nitroimidazole AntimicrobialStart: 11-19-2024 End: 46-90-3971Rbukvlegaldqz 0.75 % gel Discontinued 1 APPLIC TOPICAL Daily November 19, 2024 12:00am December 10, 2024 11:12amStart: 91-88-9972irpxfNFIXNADX 0.75 % 1 application Externally Twice a day for 10 days Sep, Not-Taking/PRNStart: 45-49-5621hfdjdgfwcvj 10 mg oral tablet (2 sources)Leukotriene Receptor AntagonistStart: 98-39-8229SJDJGNCHE 10 MG TAB Take one(1) tablet daily. 0 04/25/2005 ActiveComment on above:Take one(1) tablet daily.MULTIVITAMIN ORAL (14 sources) End: 74-30-9938BTQKETIEDCVG ORAL Take by mouth. 01/14/2022 Discontinued MULTIVITAMIN ORAL Take by mouth. 0 SuspendedMULTIVITAMIN ORAL Take by mouth. 0 ActiveComment on above:Take by mouth.mupirocin 20 mg/ml topical cream (10 sources)RNA Synthetase Inhibitor AntibacterialStart: 05-22-2024 End: 51-28-2917Zmuovnqtk Calcium 2 % cream Discontinued 1 APPLIC TOPICAL Twice daily 15 May 22, 2024 1:00am July 03, 2024 1:07pmStart: 05-22-2024 End: 23-09-8289Lfkpujymv Calcium 2 % cream Discontinued 1 APPLIC TOPICAL Twice daily 15 May 22, 2024 1:00am July 03, 2024 1:07pmStart: 05-22-2024 Mupirocin Calcium 2 % cream Active 1 APPLIC TOPICAL Twice daily 15 May 22, 2024 1:00amStart: 24-47-7452Meoqahllh Calcium 2 % cream Active 1 APPLIC TOPICAL Twice daily 15 May 22, 2024 12:00amNovoLOG 100 UNIT/ML SOLN (2 sources)Start: 48-00-9196QkogDGJ 100 UNIT/ML SOLN USE DIRECTED IN INSULIN PUMP. USE UP TO A MAXIMUM OF 70 UNITS DAILY Quantity: 60 Refills: 3 Ordered: 01-Feb-2021 Nayely Villasenor PA-C Start : 30-Sep-2020 Activenutritional supplements 0.07 gram-1.5 kcal/mL liqd (12 sources)Start: 47-62-7065norjdpoufck supplements 0.07 gram-1.5 kcal/mL liqd 50 mL/hr by FEEDING TUBE route every 24 hours. Water flush of 100 ml of water every 6 hours with tube feeds. Flush corpak ever 6 hours with 20ml of water 67611 mL 0 01/12/2022 ActiveStart: 01-12-2022 End: 47-95-0459fwqkcfelcwl supplements 0.07 gram-1.5 kcal/mL liqd 50 mL/hr by FEEDING TUBE route every 24 hours. Water flush of 100 ml of water every 6 hours with tube feeds. Flush corpak ever 6 hours with 20ml of water 44546 mL 0 01/12/2022 02/11/2022 ActiveStart: 01-03-2022 End: 28-09-5471rhtcmtumxiq supplements 0.07 gram-1.5 kcal/mL liqd 50 mL/hr by FEEDING TUBE route every 24 hours. 50ml/hr for 24 hours continuous. Water flush 50ml every 6 hours. 75503 mL 0 01/03/2022 02/02/2022 ActiveComment on above:50 [...] capsule (20 sources)Proton Pump InhibitorStart: 08-23-2021 End: 79-23-4645dwak 1 capsule by mouth once dailyomeprazole (PRILOSEC) 40 mg capsule Take 1 capsule by mouth once daily. 90 capsule 08/23/2021 06/14/2022 DiscontinuedComment on above:Take 1 capsule by mouth once daily.oxybutynin chloride 5 mg oral tablet (1 source)Cholinergic Muscarinic AntagonistStart: 02-19-2021 End: 64-77-2344vzcc 1 tablet by mouth every eight hours as neededoxybutynin (DITROPAN) 5 mg tablet Take 1 tablet by mouth every 8 hours as needed for bladder urgency (frequency related to spasm) for up to 5 days. 9 tablet 02/19/2021 04/13/2021 Discontinuedpantoprazole 40 mg delayed release oral tablet (20 sources)Proton Pump InhibitorStart: 07-20-2022 End: 48-42-7021qqvz 1 tablet by mouth once dailyPantoprazole (Protonix) 40 mg Tablet,Delayed Release (Dr/Ec) Discontinued 40 MG PO Daily August 08, 2022 12:00am July 16, 2023 2:04pmComment on above:Take 1 tablet by mouth DAILY (6 AM).phenol in water (6%) (ccf) 10 mL (11 sources)Start: 04-22-2024 End: 89-73-5285mmberz in water (6%) (ccf) 10 mLStart: 04-22-2024 End: mL, perineural injection, ONCE, 1 dose, On Sun04/22/24 at 0800, Environmental Hazardous Drug: Useappropriate PPE.Start: 01-11-2024 End: 64-15-7848civse 1 dose topically once10 mL, TOPICAL, ONCE, 1 dose, On Sun01/11/24 at 1000, Environmental Hazardous Drug: Use appropriatePPE.Start: 01-11-2024 End: 62-97-1417qsbjdd in water (6%) (ccf) 10 mLStart: 01-11-2024 End: 30-30-8630fyegbh in water (6%) (ccf) 10 mLpiperacillin 4000 mg / tazobactam 500 mg injection (4 sources)Penicillin-class Antibacterial, beta Lactamase InhibitorStart: 06-28-2023 End: ,500 mg (4.5 g), Intravenous, EVERY 8 HOURS, 12 doses, First dose (after last modification) on Sun06/28/23 at 0300, Last dose on 07/01/23 at 1900, at 25 mL/hrStart: 06-26-2023 End: 91-95-2684Getqa: 39-25-4201txdztsynumwr-tazobactam in D5W (ZOSYN) 3,375 mg iv piggyback Inject 50 mL intravenously. 2000 mL 0 06/26/2023 ActiveStart: 06-25-2023 End: 43,375 mg (3.375 g), Intravenous, EVERY 6 HOURS ANTIBIOTIC, First dose on 06/25/23 at 1307, UntilDiscontinued, at 100 mL/hrpolyethylene glycol 3350 98823 mg powder for oral solution (20 sources)Osmotic LaxativeStart: 10-10-2023 End: 82-20-8166royuucdllngr glycol 3350 17 gram packet Take 1 Packet by mouth once daily as needed. Dissolve dose in 4 - 8 ounces of liquid and take as directed. 10/20/2023 12/04/2023 Discontinued (Discontinued by Patient)Start: 07-20-2022 End: 79-88-0634juprccptiiii glycol 3350 17 gram packet Take 1 [...] as directed.Polyethylene Glycols (3 sources)Start: 11-19-2024 End: 40-59-3672Uoabbizjodea Glycol powder Discontinued EACH MISCELLANE November 19, 2024 12:00am November 26, 2024 8:08amStart: 22-03-8673Tognqmwqyzin Glycol powder Active EACH MISCELLANE November 19, 2024 12:00am Complies with drug therap yposaconazole 100 mg delayed release oral tablet (20 sources)Azole AntifungalStart: 08-29-2024 End: 22-20-7152ludp 3 tablets by mouth once dailyposaconazole DR (NOXAFIL) 100 mg tablet Take 3 tablets by mouth once daily. 08/29/2024 12/12/2024 Discontinued Start: 10-21-2023 End: 56-77-7333hqxf 3 tablets by mouth once dailyposaconazole DR (NOXAFIL) 100 mg tablet Take 3 tablets by mouth once daily. 10/21/2023 08/22/2024 Discontinued Start: 55-73-7139pqcr 300 mg by mouth once dailyPosaconazole (Noxafil) 300 mg susp,delayed release for recon Active 300 MG PO Daily July 1542:04pm Complies with drug therapyStart: 18-25-9946fifu 300 mg by mouth once fqiez166 mg, Oral, DAILY, First dose on Sun06/29/23 at 1230, Until DiscontinuedStart: 08-08-2022 End: 93-48-4044rqaxqqzzdcty DR (NOXAFIL) 100 mg tablet 08/08/2022 09/16/2023 Discontinued (Course of therapy completed)Start: 08-08-2022 End: 39-78-7921aoyk 300 mg by mouth once dailyPosaconazole (Noxafil) 300 mg Susp,Delayed Release For Recon Discontinued 300 MG PO Daily August 08, 2022 12:00am July 16, 2023 2:05pmStart: 07-20-2022 End: 63-26-5917ygaz 3 tablets by mouth once dailyPosaconazole (NOXAFIL) [...] Release For Recon (14 sources)Start: 08-08-2022 End: 27-61-6794iyyf 300 mg by mouth once dailyPosaconazole (Noxafil) 300 mg Susp,Delayed Release For Recon Discontinued 300 MG PO Daily August 07, 2022 11:00pm July 16, 2023 1:05pmStart: 08-08-2022 End: 82-51-0392xgwi 300 mg by mouth once dailyPosaconazole (Noxafil) 300 mg Susp,Delayed Release For Recon Discontinued 300 MG PO Daily August 08, 2022 12:00am July 16, 2023 2:05pmStart: 40-38-3827mnla 300 mg by mouth once daily Posaconazole (Noxafil) 300 mg Susp,Delayed Release For Recon Active 300 MG PO Daily August 08, 2022 12:00ampotassium chloride 10 meq extended release oral capsule (20 sources)Start: 04-03-2024 End: 22-14-1536cttr 1 capsule by mouth once dailyPotassium Chloride 10 mEq capsule, extended release Discontinued 10 MEQ PO Daily 90 90 April 04, 2024 1:49pm November 19, 2024 10:29amStart: 07-02-2023 End: 16-57-4895qirj 1 dose by mouth once40 mEq, Oral, ONCE, 1 dose, On Sun07/02/23 at 0700Start: 07-01-2023 End: 49-33-795164 mEq, Oral, 2 TIMES DAILY, 2 doses, First dose on 07/01/23 at 0700, Last dose on 07/01/23 at 2100potassium phosphate 155 mg / sodium phosphate, dibasic 852 mg / sodium phosphate, monobasic 130 mg oral tablet (1 source)Start: 07-04-2023 End: 68-16-5057riqb 1 tablet by mouth four times daily after mealtime1 Tablet, Oral, 4 TIMES DAILY AFTER MEALS & AT BEDTIME, 4 doses, First dose on Sun07/04/23 at 0900, Last dose on Sun07/04/23 at 065914 hr scopolamine 0.0139 mg/hr transdermal system (20 sources)AnticholinergicStart: 05-25-2021 End: 29-49-8426ndnlvnyqnol (TRANSDERM-SCOP) patch 1.5 mg/72 hr (1 mg over 3 days) Apply 1 Patch as directed every 72 hours. 5 Patch 1 05/25/2021 06/14/2022 DiscontinuedComment on above:Apply 1 Patch as directed every 72 hours.Sennosides (Senokot) 8.6 mg Tablet (14 sources)Start: 08-08-2022 End: 88-65-2693hpkq 1 tablet by mouth once daily as needed for constipation Sennosides (Senokot) 8.6 mg Tablet Discontinued 8.6 MG PO Daily as needed for Constipation August 08, 2022 12:00am July 16, 2023 2:04pmStart: 08-08-2022 End: 36-93-5843ndmr 1 tablet by mouth once daily as needed for constipation Sennosides (Senokot) 8.6 mg Tablet Discontinued 8.6 MG PO Daily as needed for Constipation August 07, 2022 11:00pm July 16, 2023 1:04pmStart: 08-08-2022 End: 16-07-5217tvpa 1 tablet by mouth once dailySennosides (Senokot) 8.6 mg Tablet Discontinued 8.6 MG PO Daily August 08, 2022 12:00am July 2:04pmStart: 33-25-8412xpyr 1 tablet by mouth once dailySennosides (Senokot) 8.6 mg Tablet Active 8.6 MG PO Daily August 08, 2022 12:00amSLIDING SCALE 1 LISPRO INSULIN (2 sources)Start: 04-24-6535KRCVFDD SCALE 1 LISPRO INSULIN as directed 0 04/25/2005 ActiveComment on above:as directedsulfamethoxazole 800 mg / trimethoprim 160 mg oral tablet (20 sources)Dihydrofolate Reductase Inhibitor Antibacterial, Sulfonamide AntimicrobialStart: 08-12-2024 End: 36-40-0999irua 1 tablet by mouth twice dailySulfamethoxazole-Trimethoprim (Bactrim Ds) 800-160 mg tablet Discontinued 1 TAB PO Twice daily 14 7April 2024 12:00am November 19, 2024 10:30amStart: 02-08-2024 End: 23-72-0887icap 1 tablet by mouth twice dailysulfamethoxazole-trimethoprim (BACTRIM DS) 800-160 mg per tablet Take 1 tablet by mouth two times aday for 7 days. 14 tablet 02/08/2024 02/15/2024 ExpiredStart: 78-93-7398qkpf 1 tablet by mouth once dailysulfamethoxazole-trimethoprim (BACTRIM DS,SEPTRA DS) 800-160 mg per tablet Take 1 tablet by mouth once daily. 45 tablet 0 01/06/2022 Active Start: 04-30-2021 End: 95-29-1481jxjv 1 tablet by mouth once dailySulfamethoxazole-Trimethoprim 800-160 mg tablet Discontinued 1 TAB PO Daily April 30, 2021 1:00am June 10, 2021 2:30pmComment on above:Take 1 tablet by mouth once daily.SUMAtriptan 100 mg oral tablet (2 sources)Serotonin-1b and Serotonin-1d Receptor AgonistStart: 04-25-2005 IMITREX 100 MG TAB as necessary 0 04/25/2005 ActiveComment on above:as necessary vancomycin 125 mg oral capsule (18 sources)Glycopeptide AntibacterialStart: 06-10-2021 End: 82-13-7885jahb 1 capsule by mouth every six hoursVancomycin [...] Sun07/08/23 at 1400, Until Discontinued (3 sources)Start: 45-28-2556Twgbe externally, 2 TIMES DAILY, First dose (after last modification) on Sun06/29/23 at 2100, UntilDiscontinuedStart: 06-26-2023 End: 98-62-0886Wtcwz: 06-26-2023 End: 88-28-0187Prxhn externally, 2 TIMES DAILY, First dose on [...] (20 sources)Abdominal pain; Translations: [Unspecified abdominal pain]Onset: 41-47-7687YktovdkdJcnavtl on above:Problem List clean-up per request of Phys. EHR CmteAcute and unspecified renal failure (20 sources)Injury of kidney; Translations: [Acute kidney failure, unspecified] Onset: 945385-77-3996GflqszmaJzizyht on above:Problem List clean-up per request of Phys. EHR CmteAdministrative/social admission (20 sources)Other reduced mobility; Translations: [Reduced mobility]Onset: 67-01-4182HghatymfVeggdsj disorders (16 sources)Claustrophobia; Translations: [Claustrophobia]ChronicAsthma (20 sources)Asthma; Translations: [Unspecified asthma, uncomplicated]Onset: 435119-07-8743ErienraHwacdlqeu-fjcwrdf, conduct, and disruptive behavior disorders (12 sources)Thin build in adult; Translations: [Other symptoms and signs involving appearance and behavior]56-95-3814BfidiwwbVronxwxtr and vision defects (1 source)Unspecified visual disturbance; Translations: [Vision changes]Onset: 84-09-5188LdadncvjSnlpla of bladder (20 sources)Malignant tumor of urinary bladder; Translations: [Malignant neoplasm of bladder, unspecified]Onset: 974641-09-4107SypastdKhnidxw on above:Cystectomy Apr,ancer of other urinary organs (7 sources)Malignant epithelial neoplasm; Translations: [Malignant neoplasm of urinary organ, unspecified]ChronicCataract (20 sources)Bilateral age-related nuclear cataracts; Translations: [Age-related nuclear cataract, bilateral]Onset: 717758-25-0651MzmrukkIbwkjco ulcer of skin (20 sources)Ulcer of back; Translations: [Pressure ulcer of sacral region, unstageable]Onset: 06-16-2022 Resolved: 868960-67-2483WzdufvgTebabfpkaiplm of surgical procedures or medical care (3 sources)Complication of surgical procedure; Translations: [Other intraoperative complications of genitourinary system]Onset: 291589-83-5275 EpisodicDiabetes mellitus with complications (20 sources)Type 1 diabetes mellitus uncontrolled; Translations: [Diabetes with other specified manifestations,type I [juvenile type], uncontrolled]Onset: 509475-08-4588LkyfoyaSqxwrjx on above:Problem List clean-up per request of Phys. EHR CmteDiabetes mellitus without complication (20 sources)Type 1 diabetes mellitus; Translations: [Type 1 diabetes mellitus without complications]Onset: 533305-35-5525FxhtqvhK Codes: Fall (1 source)Fall; Translations: [Unspecified fall, initial encounter]Onset: 03-71-3001CbiusgjvYrhzliqhcdvo (except that caused by tuberculosis or sexually transmitted disease) (13 sources)Myelitis; Translations: [Myelitis, unspecified]Onset: 01-09-2025 15-84-8333CumcocnbSpwpvjev; convulsions (17 sources)Seizure; Translations: [Unspecified convulsions]84-63-2487Mtbuyfuj Comment on above:Problem List clean-up per request of Phys. EHR CmteEsophageal disorders (6 sources)Gastro-esophageal reflux disease with esophagitis; Translations: [Gastroesophageal reflux disease with esophagitis without hemorrhage]Chronic Essential hypertension (20 sources)Hypertensive disorder; Translations: [Essential (primary) hypertension]Onset: 711416-65-2636GwefgobMrwvp and electrolyte disorders (20 sources)Hypokalemia; Translations: [Hypokalemia]Onset: 914748-88-9894 EpisodicComment on above:Problem List clean-up per request of Phys. EHR Cmte Gastrointestinal hemorrhage (11 sources)Rectal hemorrhage; Translations: [Hemorrhage of anus and rectum] 61-09-2916AeykkyhlGtvuufyhpfbny symptoms and ill-defined conditions (3 sources)Other artificial openings of urinary tract status; Translations: [Finding of urological device]Onset: 071952-52-3215MlvwphhOdbgrakklihzz symptoms and ill-defined conditions (8 sources)Dysuria; Translations: [Dysuria]Onset: 09-24-6730Bbmgyzjd Inflammation; infection of eye (except that caused by tuberculosis or sexually transmitteddisease) (2 sources)Unspecified acute conjunctivitis, right eye; Translations: [Hordeolum externum right lower eyelid]EpisodicIntestinal obstruction without hernia (20 sources)Small bowel obstruction; Translations: [Unspecified intestinal obstruction, unspecified as to partial versus complete obstruction]Onset: 12-16-2021 Resolved: 18-80-7079MztzobsfWtgjmqp on above:Problem List clean-up per request of Phys. EHR CmteMalaise and fatigue (19 sources)Weakness; Translations: [Other malaise]Onset: 16-52-0527Gnjjopek Mycoses (20 sources)Unspecified mycosis; Translations: [Obstructive hydrocephalus]Onset: 148871-65-8895SrpkccjsTxeihamtq of unspecified nature or uncertain behavior (20 sources)Neoplasm of bladder; Translations: [Neoplasm of unspecified behavior of bladder]Onset: 995654-51-0944HxadtgsiHfhhpkk on above:Problem List clean-up per request of Phys. EHR CmteNonmalignant breast conditions (11 sources)Unspecified lump in the right breast, upper outer quadrant; Translations: [Lump in upper outer quadrant of right breast]EpisodicNutritional deficiencies (20 sources)Vitamin D deficiency; Translations: [Unspecified vitamin D deficiency]Onset: 320060-24-7361PpncynfPuqtmmeqcfb deficiencies (20 sources)Cobalamin deficiency; Translations: [Deficiency of other specified B group vitamins]Onset: 505573-99-7075GtspesrwPuzjz aftercare (8 sources)Long-term current use of antibiotic; Translations: [shelter (current) use of antibiotics]73-82-8487NzzlkpwaCbjur connective tissue disease (1 source)Other symptoms and signs involving the musculoskeletal system; Translations: [Other musculoskeletalsymptoms referable to limbs]09-18-2023 EpisodicOther connective tissue disease (15 sources)Spasticity; Translations: [Cramp and spasm]42-37-6449DgmurwgeJchhb connective tissue disease (3 sources)Other muscle spasm; Translations: [Spasm of muscle]Onset: 01-09-2025 43-37-9145MtternlwOymxo connective tissue disease (16 sources)Spasm; Translations: [Other muscle spasm]84-05-2813UtgvwlugJnzzh diseases of veins and lymphatics (12 sources)Lymphedema; Translations: [Lymphedema, not elsewhere classified] 41-38-0427BglwddxGrehp diseases of veins and lymphatics (7 sources)Lymphedema, not elsewhere classified; Translations: [Other lymphedema]94-58-4913SsauzruErdtq diseases of veins and lymphatics (20 sources)Peripheral venous insufficiency; Translations: [Venous insufficiency (chronic) (peripheral)]95-60-3094HvrzuxtaWohre diseases of veins and lymphatics (19 sources)Venous insufficiency (chronic) (peripheral); Translations: [Venous (peripheral) insufficiency, unspecified]EpisodicOther eye disorders (2 sources)Bilateral posterior vitreous detachment; Translations: [Vitreous degeneration, bilateral]Onset: 022607-67-9527RxcocjwTromf eye disorders (1 source)Vitreous degeneration, bilateral; Translations: [Posterior vitreous detachment of both eyes]Onset: 89-88-6572AzoyjtvRluqi fractures (6 sources)Fracture of multiple ribs ; Translations: [Multiple fractures of ribs, unspecified side, initial encounter for closed fracture]53-47-5343Vfcdtkzk Comment on above:Left 3,4 and 6Other gastrointestinal disorders (20 sources)Ileostomy present; Translations: [Ileostomy status]ChronicOther gastrointestinal disorders (3 sources)Ileostomy statusChronicOther gastrointestinal disorders (1 source)Colostomy status; Translations: [COLOSTOMY STATUS]Onset: 05-23-2022 ChronicOther gastrointestinal disorders (7 sources)Diarrhea; Translations: [Diarrhea, unspecified]85-46-3128Wjdjhqpw Other gastrointestinal disorders (4 sources)Diarrhea, unspecified; Translations: [Diarrhea]74-51-1474Lnuwdduw Other inflammatory condition of skin (8 sources)Rosacea; Translations: [Rosacea, unspecified]ChronicOther inflammatory condition of skin (1 source)Rosacea, unspecifiedChronicOther injuries and conditions due to external causes (1 source)Fracture of bone; Translations: [Other injury of unspecified body region, initial encounter]13-70-9760GcdmrdjwFexcd injuries and conditions due to external causes (5 sources)Local infection of wound; Translations: [Other injury of unspecified body region, initial encounter]42-12-7381DroxicitYeaus injuries and conditions due to external causes (2 sources)Other injury of unspecified body region, initial encounter; Translations: [Posttraumatic wound infection not elsewhere classified]07-24-2024 EpisodicOther liver diseases (1 source)Abnormal levels of other serum enzymes; Translations: [Elevated alkaline phosphatase level]Onset: 09-38-0823MxflyyvxJeimy lower respiratory disease (2 sources)Nodule of lung; Translations: [Solitary pulmonary nodule]10-15-2024 EpisodicOther nervous system disorders (6 sources)Metabolic encephalopathy; Translations: [Metabolic encephalopathy] 28-78-5705WffxufcOzvic nervous system disorders (20 sources)Hydrocephalus; Translations: [Hydrocephalus, unspecified]Onset: 13-70-6054RcrdrsbGhkpz nervous system disorders (20 sources)Intraspinal space-occupying lesion; Translations: [Other specified diseases of spinal cord]Onset: 979817-32-6125OzqtsiwRrlsx nervous system disorders (14 sources)Hydrocephalus, unspecified; Translations: [Obstructive hydrocephalus]Onset: 85-08-0982IhowzsfFeqoq nervous system disorders (1 source)Other specified diseases of spinal cordChronicOther nervous system disorders (1 source)(Idiopathic) normal pressure hydrocephalus; Translations: [IDIOPATH NORMAL PRESS HYDROCEPHALUS]Onset: 16-48-0212AywdrglMzyxq nervous system disorders (20 sources)Obstructive hydrocephalus; Translations: [Obstructive hydrocephalus] 98-79-7431MxvlsxwQjdvi nervous system disorders (20 sources)Communicating hydrocephalus; Translations: [Communicating hydrocephalus]Onset: 525552-43-3352YijbphgRdgue nervous system disorders (1 source)Hydrocephalus in diseases classified elsewhere; Translations: [Hydrocephalus in diseases classifiedelsewhere]Onset: 32-76-7913XqwnweuBanhs nervous system disorders (1 source)Walking disability; Translations: [Difficulty in walking, not elsewhere classified]Onset: 24-58-2409UafxzfmNhjxk nervous system disorders (1 source)Ventriculoperitoneal shunt in situ; Translations: [Presence of cerebrospinal fluid drainage device]24-11-2516PrukufkCtsym nervous system disorders (1 source)Cerebral degeneration in diseases classified elsewhereOnset: 315019-26-5503AjmclxhBdqus nervous system disorders (1 source)Presence of cerebrospinal fluid drainage device; Translations: [Hydrocephalus managed with PSYCH NURSE shunt(HCC)]Onset: 04-83-7310KneyawcYbeeg nervous system disorders (1 source)Arachnoid cyst; Translations: [Cerebral cysts]72-71-4735VrrjvhzXpntz nervous system disorders (1 source)Syringomyelia and syringobulbia; Translations: [Syringomyelia and syringobulbia (HCC)]Onset: 23-83-1328XerfdimMpkca nervous system disorders (1 source)Communicating hydrocephalus; Translations: [Communicating hydrocephalus (HCC)]Onset: 54-70-2941EgxtervVcjkn nervous system disorders (1 source)Other hydrocephalus; Translations: [Other hydrocephalus (HCC)]Onset: 24-57-1270NxumryoYzfte nervous system disorders (1 source)Skin sensation disturbance; Translations: [Unspecified disturbances of skin sensation]30-43-5365CeisnaosDhluz non-traumatic joint disorders (1 source)Shoulder pain; Translations: [Pain in right shoulder]03-19-2023 EpisodicOther non-traumatic joint disorders (1 source)Pain of right wrist; Translations: [Right wrist pain]Other nutritional; endocrine; and metabolic disorders (20 sources)Body mass index 30+ - obesity; Translations: [Body Mass Index 30.0- 30.9, adult]ChronicOther nutritional; endocrine; and metabolic disorders (20 sources)Hypophosphatemia; Translations: [Other disorders of phosphorus metabolism]Onset: 768687-69-7088HqrkxayKlpbf nutritional; endocrine; and metabolic disorders (20 sources)Hypomagnesemia; Translations: [Hypomagnesemia]Onset: 01-05-2022 66-35-6470KwmaimpJsgyu nutritional; endocrine; and metabolic disorders (1 source)Abnormal [...] of periwound skin; Translations: [Unspecified skin changes] 57-25-1424OdyqwsgsHapmz upper respiratory infections (3 sources)Acute maxillary sinusitis, unspecified; Translations: [Acute laryngitis]EpisodicOtitis media and related conditions (4 sources)Dysfunction of eustachian tube; Translations: [Unspecified Eustachian tube disorder, unspecified ear]68-32-8184NlludcvjSbtxfhvpl (20 sources)Chronic paraplegia; Translations: [Paraplegia, incomplete]Onset: 628498-01-5138FdeqjaeKpohyjlbgk and visceral atherosclerosis (20 sources)Peripheral vascular disease, unspecified; Translations: [Peripheral arterial disease]Onset: 239953-70-4435DrfxsewVtyfugzprg and visceral atherosclerosis (12 sources)Disorder of intestine; Translations: [Acute infarction of intestine, part and extent unspecified]64-64-6811NyqszaviYbhzdgez codes; unclassified (7 sources)Dependence on other enabling machines and devices; Translations: [Walker as ambulation aid]21-15-5192KotbtsnEvuiqdxu codes; unclassified (1 source)Early satiety; Translations: [Early satiety]EpisodicResidual codes; unclassified (18 sources)Unable to perform personal care activity; Translations: [Other specified health status]69-31-2253RfvwofowOicvvzw on above:Problem List clean-up per request of Phys. EHR CmteResidual codes; unclassified (18 sources)Altered mental status; Translations: [Altered mental status, unspecified]98-26-2968EnhjfufvQneodfv on above:Problem List clean-up per request of Phys. EHR CmteResidual codes; unclassified (5 sources)Other specified health status; Translations: [Other specified conditions influencing health status]Onset: 620040-18-5979OocnrkvqDncwnxbm codes; unclassified (1 source)Asymptomatic menopausal stateEpisodicResidual codes; unclassified (6 sources)Sedentary lifestyle; Translations: [Other specified personal risk factors, not elsewhere classified]42-32-4177WkistmrsHpwdapwx codes; unclassified (1 source)Severe pain; Translations: [Pain, unspecified]78-97-2252Rpbilrvx Respiratory failure; insufficiency; arrest (adult) (17 sources)Acute respiratory failure; Translations: [Acute respiratory failure, unspecified whether with hypoxia or hypercapnia]23-33-7485QxftxxuhDkdfjhl on above:Problem List clean-up per request of Phys. EHR CmteRetinal detachments; defects; vascular occlusion; and retinopathy (3 sources)Bilateral epiretinal membrane of eyes; Translations: [Puckering of macula, bilateral]Onset: 346792-16-9220OzdzailSctlttvhwq (except in labor) (19 sources)Sepsis; Translations: [Sepsis, unspecified organism]Onset: 003713-97-9498WqiwryduHdnaobm on above:Problem List clean-up per request of Phys. EHR CmteSpondylosis; intervertebral disc disorders; other back problems (2 sources)Degeneration of cervical intervertebral disc; Translations: [Other cervical disc degeneration, unspecified cervical region]Onset: 10-22-2024 08-84-8355JgalyytFvqlxqwgfpt injury; contusion (11 sources)Abrasion of abdominal wall, initial encounter; Translations: [Abrasion of abdominal wall]05-16-0971QspllnfmHbafkvtaseij (2 sources)APPOINTMENT CANCELLEDUnclassified (1 source)CONTACT W/AND (SUSP) EXPOS COVID-19; Translations: [CONTACT W/AND (SUSP) EXPOS COVID-19]Onset: 84-54-0222Ylqcmenbdafd (1 source)ACIDOSIS UNSPECIFIED; Translations: [ACIDOSIS UNSPECIFIED]Onset: 31-61-8593Scgbnjttbjpa (2 sources)LOW BACK PAIN, UNSPECIFIED; Translations: [LOW BACK PAIN, UNSPECIFIED]Onset: 77-68-1098Cyxgitxgflok (7 sources)Thin build in adult; Translations: [Thin build in adult]08-08-2022 Unclassified (1 source)OPENED IN FURKC16-79-9081Jqrioiypslbd (1 source)NO HPHY79-49-3421Jztywygvkqpn (2 sources)Autogenerated ProblemOnset: 786832-94-0206Ffcodzy tract infections (2 sources)Urinary tract infection, site not specified; Translations: [UTI SITE NOT SPECIFIED]Onset: 03-60-6550NyeycmefLadsm infection (1 source)COVID-19; Translations: [COVID-19]Onset: 03-17-2022 Past or Other Problems Problem ClassificationProblemDateDocumented DateEpisodic/ChronicAcute posthemorrhagic anemia (20 sources)Anemia following acute postoperative blood loss; Translations: [Acute posthemorrhagic anemia]Onset: 616670-15-7909NvctapxmJzuvbqncs infection; unspecified site (1 source)Proteus (mirabilis) (morganii) as the cause of diseases classified elsewhere; Translations: [PROTEUS CAUSE OF DZ CLASS ELSW]Onset: 04-19-2022 EpisodicCancer of bladder (17 sources)H/O: malignant neoplasm; Translations: [Personal history of malignant neoplasm of bladder]Onset: 47-49-8031WbuqdicnDqihktf dysrhythmias (20 sources)Palpitations; Translations: [Palpitations]Onset: 02-16-2021 94-83-6119NwsiqremWrkl; stupor; and brain damage (3 sources)Unspecified coma; Translations: [UNSPECIFIED COMA]Onset: 05-27-2022 EpisodicCrushing injury or internal injury (1 source)Injury to ureter, without mention of open wound into mpgdak61-96-3419 EpisodicDeficiency and other anemia (1 source)Iron deficiency anemia, unspecified; Translations: [IRON DEFICIENCY ANEMIA UNSPECIFIED]Onset: 23-30-0343MdahngkmPwbzvsbq mellitus without complication (20 sources)Insulin pump present; Translations: [Hyperglycemia]Onset: 2022 47-56-1320YfsahyimDjnfvjdbq of lipid metabolism (20 sources)Hyperlipidemia; Translations: [Hyperlipidemia, unspecified]Onset: 10-07-2023 Resolved: 81-21-4733FhxtqgkY Codes: Struck by; against (1 source)Striking against other object with subsequent fall, initial encounter; Translations: [STRIK AGNST OTH OBJ SBSQT FALL INIT]Onset: 60-64-7939Obajdmcq Esophageal disorders (1 source)Esophageal disordersFracture of lower limb (20 sources)Nondisplaced transverse fracture of left patella, subsequent encounter for closed fracture with routine healing; Translations: [Closed fracture patella, transverse ]Onset: 56-83-8229LqaatkvcCydqfeugza (except that caused by tuberculosis or sexually transmitted disease) (20 sources)Meningitis, unspecified; Translations: [Fungal meningitis]Onset: 93-56-1520MasbarpqMtnnpa and vomiting (6 sources)Nausea and vomiting; Translations: [Nausea with vomiting, unspecified]Onset: 22-96-7027HaorkgrcJoed wounds of extremities (20 sources)Impaired wound healing; Translations: [Unspecified open wound, left foot, initial encounter]Onset: 273921-38-1813AwmrvaxfSgxot aftercare (20 sources)Long-term current use of insulin; Translations: [Long-term (current) use of insulin]Onset: 908419-88-2945JgffyvhkNxcxq aftercare (3 sources)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; 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: [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]Onset: 39-85-4661JcbfhdlfDjwvd aftercare (1 source)Other prison (current) drug therapy; Translations: [OTH SKILLED NURSING CURRENT DRUG THERAPY]Onset: 71-39-6723FxsizzxzXikuj bone disease and musculoskeletal deformities (20 sources)Lesion of lumbar spine; Translations: [Disorder of bone, unspecified]Onset: 225486-99-4858RrtbybgvXgkik connective tissue disease (20 sources)Recurrent falls ; Translations: [Repeated falls]Onset: 10-11-2023 87-45-7682GuyufsdlKutmu connective tissue disease (2 sources)Cramp and spasm; Translations: [Spasticity]Onset: 58-60-8979Xbywzrqm Other connective tissue disease (1 source)Pain in left foot; Translations: [Pain in left foot]Onset: 05-27-2024 EpisodicOther connective tissue disease (1 source)Other specified soft tissue disorders; Translations: [Other specified soft tissue disorders]Onset: 89-12-8272SemdckvjMkwme diseases of kidney and ureters (20 sources)Hydronephrosis; Translations: [Unspecified hydronephrosis]Onset: 455987-71-7563BwqjynfpYeojz diseases of kidney and ureters (1 source)Unspecified hydronephrosis; Translations: [Hydronephrosis, unspecified hydronephrosis type]Onset: 48-43-0391JabwurieYvxcn injuries and conditions due to external causes (20 sources)Soft tissue injury; Translations: [Other injury of unspecified body region, initial encounter]Onset: 750282-88-6482WyrapvotXnfpt injuries and conditions due to external causes (20 sources)At risk for falls ; Translations: [History of falling]Onset: 479364-03-8232PcoyzctwBcoom injuries and conditions due to external causes (20 sources)Fracture pain; Translations: [Other injury of unspecified body region, initial encounter]Onset: 067815-08-8270ZohcvxpeVqphc liver diseases (20 sources)Alkaline phosphatase raised; Translations: [Abnormal levels of other serum enzymes]Onset: 246635-15-9658TkvnyhhdWaliu lower respiratory disease (1 source)Shortness of breath; Translations: [SHORTNESS OF BREATH]Onset: 09-51-0435AwmkmracIdikj lower respiratory disease (1 source)Solitary pulmonary nodule; Translations: [Pulmonary nodule]Onset: 39-47-6563RrnpjtyaMxdhw nervous system disorders (20 sources)Abnormal gait; Translations: [Unspecified abnormalities of gait and mobility]Onset: 625336-08-1484MinaiblsQkjte nervous system disorders (20 sources)Postoperative pain ; Translations: [Other acute postprocedural pain] Onset: 434584-19-4465VktdmnofHgzyy nutritional; endocrine; and metabolic disorders (20 sources)Obesity; Translations: [Obesity, unspecified]Onset: 02-16-2021 Resolved: 247145-80-9266WxueyzzWguqu nutritional; endocrine; and metabolic disorders (1 source)Body mass index (BMI) 19.9 or less, adult; Translations: [BODY MASS INDEX 19.9 OR LESS ADULT]Onset: 68-73-6016JgqorozyAcmgzidw codes; unclassified (3 sources)Altered mental status, unspecified; Translations: [Altered mental status]Onset: 874111-66-0571VktmlezkYnikamku codes; unclassified (1 source)Other specified postprocedural states; Translations: [OTH SPECIFIED POSTPROCEDURAL STATES]Onset: 47-30-5903IabgvbolQttgorbx codes; unclassified (1 source)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; Translations: [ACQ ABSENCE OTH PARTS URINARY TRACT]Onset: 99-08-0052RlmzuzcyAlofrwda codes; unclassified (20 sources)Finding of activity of daily living; Translations: [Other general symptoms and signs]Onset: 306256-50-1762TmbpyojhXfbifppn codes; unclassified (20 sources)Bilateral lower limb edema; Translations: [Localized edema]Onset: 309630-24-1680TxqesvvaAqtblrqx codes; unclassified (2 sources)Other postprocedural ealwnj29-08-4433LedhjzeeBsesctgihuu; intervertebral disc disorders; other back problems (20 sources)Chronic low back pain; Translations: [Chronic low back pain without sciatica, unspecified back painlaterality]Onset: 92-39-9008VcqzezeaLawqvui and strains (1 source)Strain of muscle, fascia and tendon of lower back, initial encounter; Translations: [STRAIN MUSC FASC TENDON LW BACK INT]Onset: 27-63-7149Ihqjshog Unclassified (4 sources)Long-term current use of insulin; Translations: [Insulin long-term use]Unclassified (1 source)LOW BACK PAIN, UNSPECIFIED; Translations: [LOW BACK PAIN, UNSPECIFIED] Onset: 76-17-2339Oijaeyfwugzo (1 source)Closed fracture of distal end of left papku36-52-9487ZVQHGSH: Highlighted row has not occurred!Residual codes; unclassified (3 sources)DiseaseEpisodic Results Test NameValueInterpretationReference RangeFacilityCNOVon 38-54-6932HZFZXqmtby Visit (ORFWHP) CHIKIS TOBAR ([id number]) 1965 F Date Time Provider Department 02/17/25 10:00 AM AASHISH MONGE ORFWHP During your [...] Aashish Monge PA-C Referring Provider: DARYL MOREJON [[id number]] Allergies As of Date: 02/17/2025 Noted Allergy [...] left femur, unspecified fracture morphology, initial encounter ([facility]) [S72.402Y] Prescriptions as of 02/17/2025 - posaconazole DR [...] mg by mouth three times a day. 14hn-63ge-79py - DOCUSATE SODIUM PO Take 100 mg [...] as needed. - dextrose (more content not included)...[facility]XR FEMUR 2V AP/LAT LTon 94-44-0810TX FEMUR 2V AP/LAT LT* * *Final Report* [...] left femur, unspecified fracture morphology, initial encounter ([facility]) COMPARISON: 12/11/2024 RESULT: No acute fracture or dislocation. Healed left distal femur fracture status post open reduction internal fixation with a long intramedullary kathleen and proximal and distal interlocking screws. Hardware is intact. Diffuse osteopenia. Left hip joint space is maintained. Left acetabular osteophytes. Mild to moderate left sacroiliac joint osteoarthritis. Solid osseous fusion across the pubic symphysis. Left knee osteoarthritis, most pronounced in the patellofemoral compartment. Incompletely assessed left tibial fixation hardware. Atherosclerotic vessel calcifications. IMPRESSION: Healed left distal femur fracture status post open reduction internal fixation. Printed Circuit Board Assembler: SUMA Transcribe Date/Time: Feb 23 2025 9:18A Dictated by : LIAT ANDUJAR MD This examination was interpreted and the report reviewed and electronically signed by: LIAT ANDUJAR MD on Feb 23 2025 9:19AM EST [id number] River General Hospital 79-34-3371BBIFXwuevw Visit (NSCAMN) CHIKIS TOBAR ([id number]) 1965 F Date Time Provider Department 02/12/25 9:30 AM NASEEM [facility] During your visit today, we recorded the following information about you: Temperature Pulse Respiration Blood pressure 98 degrees 74/minute 19/minute 114/49 Naseem Barksdale MD 02/12/2025 11:30 AM Signed Subjective Chikiscarmine Tobar is a 59 year old female with 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 Per [facility] recent neurology note from Marlene CRISTINA: Her PSYCH NURSE shunt was removed on 07/10/23 following laparotomy [...] in detail possible benefits and risks of PSYCH NURSE shunt adjustment. After discussion with Chikis, she [...] mass on her spine and ventriculomegaly. A PSYCH NURSE shunt was placed. She later developed a [...] No Does patient want to see a Rn Stars? No (yes to any of above refer [...] completed. Please call the imaging schedulers at [phone] Referring Provider: ASTRID NAVA [[id number]] Allergies As of Date: 02/12/2025 Noted Allergy [...] syringobulbia (HCC) [G95.0] Order(s):MRI CERVICAL SPINE WO DONNA [[id number]] Order #: [id number] SHAYAN (more content not included)...NormalSelect Medical Specialty Hospital - Columbus SouthCNPNon 69-35-5259ZCKY Telephone (NSCAMN) CHIKIS TOBAR ([id number]) 1965 F Date Time Provider Department 02/09/25 [facility] During your visit today, we recorded the following information about you: Nivia Perez 02/09/2025 9:06 AM Signed General Call Caller : Pt Contact Reason for Call : Pt called requesting an earlier appt due to concerns about possible nerve damage and suspected fluid accumulation on the spine. Patient requesting return call ? Yes Jaguar Gallardo, RN 02/10/2025 11:04 AM Signed Called patient [...] mg by mouth three times a day. 88xc-00sj-14fj - DOCUSATE SODIUM PO Take 100 mg [...] Recurrent falls [R29.6] 10/10 (more content not included)...NormalTriHealth Bethesda Butler Hospitalon 71-59-0084IHFXKeiyjt Visit (RBMT) CHIKIS TOBAR ([id number]) 1965 F Date Time Provider Department 01/09/25 1:00 PM [facility] During your visit today, we recorded the [...] fungal meningitis, myelitis and hydrocephalus status post PSYCH NURSE shunt placement June 2022, externalization on 06/25/2023, removal 07/10/2023 and reimplantation on 10/15/2023. Patient experienced impaired mobility and ADLs after removal of shunt and noted minimal improvement in lower extremity function post shunt reimplantation. She was evaluated in [facility] spasticity clinic initially on 12/04/2023 for paraplegia and associated severe spasticity and flexor spasms. She was discharged home from [facility] rehab facility on 02/15/2024. She lives on [...] of right foot. She was admitted to [facility] from 08/22/24-08/29/24 for Left femur fracture s/p surgical fixation. She was discharged to acute inpatient rehab at [facility]. Subsequently she went to a SNF where she didn't get a chance to work with rehab therapy satisfactorily. She is getting PT 2/week. She will at the facility till next week. -Most recent [facility] visit: 12/08/24 -Most recent botulinum toxin injection: [...] with intact comprehen (more content not included)...Normal UK Healthcareon 01-54-0993BLFPXhgvzfcht (INFDMN) CHIKIS TOBAR ([id number]) 1965 F Date Time Provider Department 12/12/24 JAMIE MCCARTY During your visit today, we recorded the following information about you: Clare Lin HUC 12/12/2024 12:43 PM Signed Prior authorization documentation Prior authorization process has been initiated for the following medication: Medication: Cresemba Dosage: 186mg Refills: 2 Provider: Bibiana The prior authorization has been: PENDED. (Gordon: [id number]) JONNIE Rx #: [id number] Insurance Company Name: [employer] Patient ID number: [id number] Pharmacy Name: [facility] Telephone number: [phone] Clare Lin HUC 12/12/2024 2:49 PM Signed [...] Fully Assessed Reason for Visit: Medication Authorization [1699] Cmt: Cresemba Prescriptions as of 12/12/2024 - isavuconazonium sulfate (CRESEMBA) 186 mg capsule Take 2 capsules by mouth as directed. Take two (2) capsules by mouth every 8 hours for 6 doses, then two (2) capsules per day. - baclofen 10 mg tablet Take 10 mg by mouth three times a day. 76lh-31or-27hl - DOCUSATE SODIUM PO Take 100 mg [...] injury of deep tissue (more content not included)...NormalUpper Valley Medical CenterOVon 69-24-2921ZZOOSuvezg Visit (ORFWHP) CHIKIS TOBAR ([id number]) 1965 F Date Time Provider Department 12/11/24 [...] left femur, unspecified fracture morphology, initial encounter ([facility]) [S72.402A] Order(s):XR FEMUR GENERAL 2V AP/LAT LEFT [[id number]] Order #: [id number] FUTURE Prescriptions as of 12/12/2024 - isavuconazonium sulfate (CRESEMBA) 186 mg capsule Take 2 capsules by mouth as directed. Take two (2) capsules by mouth every 8 hours for 6 doses, then two (2) capsules per day. - baclofen 10 mg tablet Take 10 mg by mouth three times a day. 27kj-77ku-69pf - DOCUSATE SODIUM PO Take 100 mg [...] without sciatica [M54.50,*1 (more content not included)... [facility] 70-10-2443PEUNWzjovpjoa (NSCAMN) CHIKIS TOBAR ([id number]) 1965 F Date Time Provider Department 12/11/24 SUSANNA CARRANZA NSCAMN During your visit today, we recorded the following information about you: Susanna Carranza PA-C 12/11/2024 1:27 PM Signed Next available New patient Susanna Tere AND Dr. Barksdale ([place] appt about 4 weeks after my appt [...] mg by mouth three times a day. 55ap-50eg-90yv - DOCUSATE SODIUM PO Take 100 mg [...] [R60.0] 08/23/2024 Non heali (more content not included)...NormalSelect Medical Specialty Hospital - Columbus SouthXR FEMUR 2V AP/LAT LTon 99-76-6119MI FEMUR 2V AP/LAT LT* * *Final Report* [...] in alignment or evidence of hardware failure. Printed Circuit Board Assembler: SUMA Transcribe Date/Time: Dec 16 2024 2:31P Dictated by : ENOC DODSON MD This examination was interpreted and the report reviewed and electronically signed by: ENOC DODSON MD on Dec 16 2024 2:33PM EST [id number] Hospital 75-71-0155FZYTHpenxrlsx (EMQ) CHIKIS TOBAR ([id number]) 1965 F Date Time Provider Department 11/28/24 RUDDY GUPTA EMHumberto During your visit today, we recorded the following information about you: Kaylene Godinez 11/28/2024 1:42 PM Addendum Yaneth the nurse with [facility] is calling Ruddy Gupta MD today with concern regarding Patient Question and requesting OV notes and insulin rate be sent to them to continue care for the patient while in the facility Fax insulin rate and notes to [phone] Patient has been identified by name and birthdate. Duration of symptoms: N/A Person calling: Caregiver Call: [phone] Was an appointment scheduled: No Closing statement: Results or non-symptom based questions: Thank you for calling [facility], your call will be returned within the [...] for Visit: Electronic Communication [890] Patient Question [5687] Prescriptions as of 12/02/2024 - DOCUSATE SODIUM [...] exam for internal medicine (more content not included)...NormalTr[facility]ull [facility] 46-12-3788LVTBJsppar Visit (INFDMN) CHIKIS TOBAR ([id number]) 1965 F Date Time Provider Department 10/22/24 4:00 PM JAMIE MCCARTY INFFERCHO During your visit today, we recorded the [...] was performed and she was transferred to [facility]. She was found to have DKA. A CT head showed hydrocephalus with MRI on May 29, 2022 showing multiple areas of enhancement in the anterior sabra, medulla, and in the spine at the level of C7-T3 and L1-S2. Multiple taps were performed and were unsuccessful. A PSYCH NURSE shunt was placed and patient underwent a [...] lobes (8 mm). LFTs 08/16 normal . PSYCH NURSE shunt was adjusted from 4 to 7 Posaconazole level 2.4 on 08/21/22 Developed a facial rash in September 2022, mainly the malar area, a few spots on the forehead. Dx'd with rosacea by PCP and started on metronidazole gel. She was seeing wound care at [facility] for her sacral area ulcer. Rx'd [...] and ambulatory, using a cane PRN. No PSYCH NURSE shunt issues. Balance has improved but still [...] sensory loss. Neuro exam (more content not included)...NormalSelect Medical Specialty Hospital - Columbus SouthCNOVOffice Visit (SPNMMN) CHIKIS TOBAR ([id number]) 1965 F Date Time Provider Department 10/22/24 3:00 PM BIANCA LITTLE SPUTMN During your visit today, we recorded the [...] of tibia 09/2023 HTN (more content not included)...NormalTrumbull Memorial Hospital 39-87-1770MEJGPmbtng Visit (NREUS2) CHIKIS TOBAR ([id number]) 1965 F Date Time Provider Department 10/09/24 2:00 PM MARLENE CORDERO NREUS2 During your visit today, we recorded the following information about you: Pulse Blood pressure 75/minute 120/49 Marlene Cordero PA-C 10/09/2024 1:55 PM Signed Recording using [employer] software for draft documentation of the visit was discussed with the patient/authorized policy services representative; all questions welcomed and answered. 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 Chikis's shunt was previously removed at [facility] on 07/10/23 following surgery for bowel obstruction [...] with a history of communicating hydrocephalus. Her PSYCH NURSE shunt was removed on 07/10/23 following laparotomy [...] Marlene Cordero PA-C Referring Provider: MARLENE CORDERO [[id number]] Allergies As of Date: 10/09/2024 Noted Allergy [...] hydrocephalus (HCC) [G91.8] Order(s):CONSULT TO SPINE SURGERY [[id number]] Order #: [id number]: [address] BRAIN WO IVCON [[id number]] Order #: [id number] FUTURE Prescriptions as of 10/09/2024 - DOCUSATE [...] (ZESTRIL) 5 mg ta (more content not included)...NormalSelect Medical Specialty Hospital - Columbus SouthCobalamin (Vitamin B12) [Mass/Vol]on 10-44-3154Iqmphxnopluklk and review of laboratory resultsNormalCleveland Dayton VA Medical CenterVITAMIN B12on 35-66-3138Izjqxfdqm (Vitamin B12) [Mass/Vol]449 pg/mL232 - 1245 pg/mL [facility] metabolic 2000 panelOrdered By: Severo Gilmore on 10-02-2024 Anion gap [Moles/Vol]10 mmol/L8 - 15 mmol/LCleveland ClinicCalcium [Mass/Vol] 10.1 mg/dL8.5 - 10.2 mg/dLElma ClinicChloride [Moles/Vol]104 mmol/L98 - 107 mmol/LCleveland ClinicCO2 [Moles/Vol]28 mmol/L22 - 30 mmol/LCleveland Clinic Creatinine [Mass/Vol]0.75 mg/dL0.58 - 0.96 mg/dLMercy Health – The Jewish HospitalGFR/1.73 sq M.predicted among non-blacks MDRD (S/P/Bld) [Vol rate/Area]92 mL/min/{1.73_m2}- PINFClevelBlanchard Valley Health SystemComment on above:Estimated Glomerular Filtration Rate (eGFR) is calculated using the 2020 CKD-EPI creatinine equation. This equation utilizes serum creatinine, sex, and age as parameters. The creatinine assay has traceable calibration to isotope dilution-mass spectrometry. Refer to KDIGO guidelines for clinical interpretation. In patients with unstable renal function, e.g. those with acute kidney injury, the eGFRmay not accurately reflect actual GFR.Glucose [Mass/Vol]114 mg/cNFtuj54 - 99 mg/dLMercy Health – The Jewish HospitalComment on above:The [place] Diabetes Association (ADA) provides guidance for cutoff [...] Standards of Medical Care in Diabetes 2016, [place] [employer] Association. Diabetes Care. 2016.39(Suppl 1). Interpretation and review of laboratory resultsAbnormalCleveland ClinicPotassium [Moles/Vol]4.6 mmol/L3.7 - 5.1 mmol/LCleveland ClinicSodium [Moles/Vol]142 mmol/L136 - 144 mmol/LCsheltering arms hospital ClinicUrea nitrogen [Mass/Vol]29 mg/dLHigh7 - 21 mg/dLSelect Medical Specialty Hospital [facility] metabolic 2000 panelon 10-02-2024 Anion gap [Moles/Vol]10 mmol/LNormal8-15[facility] on above:Order Comment: Specimen Type: BLOOD SPECIMENOrdering Facility: [facility] Address:[address] [place], [place] [address]Performed By: #### 35028-1 ####[facility] LABCLIA [id number] [place], [place] [address]Tmugeey [Mass/Vol]10.1 mg/dLNormal8.5-10.2CHarrison Community Hospital on above:Order Comment: Specimen Type: BLOOD SPECIMENOrdering Facility: [facility] Address:[address] [place], [place] [address]Performed By: #### 12457-3 ####[facility] LABCLIA [id number] [place], [place] [address]Ygmdifgl [Moles/Vol]104 mmol/FBwtfrv20-790OafrcmtvdKettering Memorial Hospital on above: Order Comment: Specimen Type: BLOOD SPECIMENOrdering Facility: [facility] Address:[address] [place], [place] [address]Performed By: #### 70501- 2 ####[facility] LABCLIA [id number] [place], [place] [address]YY0 [Moles/Vol]28 mmol/BBhckqj01-82AzvjfcepkKettering [facility] Hospital on above:Order Comment: Specimen Type: BLOOD SPECIMENOrdering Facility: [facility] Address:[address] [place], [place] [address]Performed By: #### 91213-0 ####[facility] LABCLIA [id number] [place], [place] [address]Cnzunzeisf [Mass/Vol]0.75 mg/dL Normal0.58-0.96[facility] on above:Order Comment: Specimen Type: BLOOD SPECIMENOrdering Facility: [facility] Address:[address] [place] [address]Eobdntunb By: #### 07097-8 ####[facility] LABCLIA [id number] [place], [place] [address]Sunvjpedxm and Glomerular filtration rate.predicted panel (S/P/Bld)92 mL/min/1.73m???Normal>=60[facility] on above:Order Comment: Specimen Type: BLOOD SPECIMENOrdering Facility: [facility] Address:[address] [place] [address]Jdfsss Comment: Estimated Glomerular Filtration Rate (eGFR) is [...] not accurately reflect actual GFR.Performed By: #### 25877-2 ####[facility] LABCLIA [id number] [place], [place] [address]Qjdzhxw [Mass/Vol]114 mg/eDKtpy46-51AiynhetkoKettering Memorial Hospital on above:Order Comment: Specimen Type: BLOOD SPECIMENOrdering Facility: [facility] Address:[address] [place] [address]Rllybd Comment: The [place] Diabetes Association (ADA) provides guidance for cutoff [...] Standards of Medical Care in Diabetes 2016, [place] Diabetes Association. Diabetes Care. 2016.39(Suppl 1).Performed By: #### 75667-6 ####[facility] LABCLIA [id number] [place], [place] [address]Oupgjaotr [Moles/Vol]4.6 mmol/LNormal3.7-5.1CHarrison Community Hospital on above:Order Comment: Specimen Type: BLOOD SPECIMENOrdering Facility: [facility] Address:[address] [place], [place] [address]Performed By: #### 95177-0 ####[facility] LABCLIA [id number] [place], [place] [address]Mcbsbl [Moles/Vol]142 mmol/KGqzifj134-672UykyrypfaKettering Memorial Hospital on above: Order Comment: Specimen Type: BLOOD SPECIMENOrdering Facility: [facility] Address:[address] [place], [place] [address]Performed By: #### 83755- 2 ####[facility] LABCLIA [id number] [place], [place] [address]Xiig nitrogen [Mass/Vol]29 mg/dLHigh7-21[facility] on above:Order Comment: Specimen Type: BLOOD SPECIMENOrdering Facility: [facility] Address:[address] [place], [place] [address]Performed By: #### 26009-7 ####[facility] LABIA [id number] [place], [place] [address]TM CHEST W IVCONon 63-41-4946QL CHEST W IVCON* * *Final Report* * * DATE OF EXAM: Oct 02 2024 2:29PM [facility] 0539 - CT CHEST W IVCON / [...] abdomen and pelvis will be reported separately. Automotive Drivability Technician (topogram) images: No additional findings. IMPRESSION: 1. [...] any questions regarding this interpretation, please call [phone]. If you are unable to reach us at the number above, please feel free to contact [facility] eRadiology at [phone]. [id number]. John of God Hospital Kidney WO and W contrast [place] 15-35-9376GARTDEWCCH: No recurrent urinary tract mass or abdominopelvic [...] any questions regarding this interpretation, please call [phone]. If you are unable to reach us at the number above, please feel free to contact [facility] eRadiology at [phone].DIVISION OF RADIOLOGY* * *Final Report* * * DATE OF EXAM: Oct 02 2024 2:29PM [facility] 0560 - CT UROGRAM WO/W IVCON / [...] images: No additional findings. DIVISION OF RADIOLOGYProvider, [facility] [place] - 10/02/2024 * * *Final Report* * * DATE OF EXAM: Oct 02 2024 2:29PM [facility] 0560 - CT UROGRAM WO/W IVCON / [...] any questions regarding this interpretation, please call [phone]. If you are unable to reach us at the number above, please feel free to contact [facility] at [phone]. [facility] HospitalRadiology Study observation (narrative)[facility] Kidney WO and W contrast IVOrdered By: Ccf Provider on 92-58-3205Qykligvoh [facility] UROGRAM WO/W IVCONon 40-96-8955LC UROGRAM WO/W IVCON* * *Final Report* * * DATE OF EXAM: Oct 02 2024 2:29PM [facility] 0560 - CT UROGRAM WO/W IVCON / [...] any questions regarding this interpretation, please call [phone]. If you are unable to reach us at the number above, please feel free to contact [facility] eRadiology at [phone]. [id number] Medical Specialty Hospital - Columbus SouthLaboratory - Chemistry and Chemistry - challengeOrdered By: Molly Hendrickson on 76-40-9504Omixore [Mass/Vol]10.1 mg/dL8.5-10.2FPremier Health Miami Valley Hospital NorthChloride [Moles/Vol]104 mmol/L 98-107[facility] Medical CenterCO2 [Moles/Vol]28 mmol/Z92-90BxswlpemiUniversity Hospitals Tripoint Medical CenterCobalamin (Vitamin B12) [Mass/Vol]449 pg/aR524-5721 [facility] Medical CenterCreatinine [Mass/Vol]0.75 mg/dL0.58-0.96 [facility] Medical CenterGlucose [Mass/Vol]114 mg/tOYywv73-93HmomcaikbUniversity Hospitals Tripoint Medical CenterComment on above:The [place] Diabetes Association (ADA) provides guidance for cutoff [...] diabetes.Reference: Standardsof Medical Care in Diabetes 2016, [place] Diabetes Association. Diabetes Care. 2016.39(Suppl 1).Potassium [Moles/Vol]4.6 mmol/L 3.7-5.1FUniversity Hospitals Geauga Medical Centerodium [Moles/Vol]142 mmol/M042-142 [facility] Medical CenterUrea nitrogen [Mass/Vol]29 mg/dLHigh7-21 [facility] Medical CenterNo Panel InformationOrdered By: Molly Hendrickson on 27-98-0952Xxqkyjhbx GFR (CKD-EPI)92 mL/min/1.73m???>=60[facility] Medical CenterComment on above:Estimated Glomerular Filtration Rate [...] anion gap determinationOrdered By: Molly Hendrickson on 35-56-6527Mxrtg gap [Moles/Vol]10 mmol/L8-15[facility] Medical CenterVit B12 SerPl-mCnc on 14-91-8148Stjjyejct (Vitamin B12) [Mass/Vol]449 pg/kKJxwbhb568-5927Mxuryjnzr Clinic ClevelandComment on above:Order Comment: Specimen Type: BLOOD SPECIMENOrdering Facility: [facility] Address:[address] [place], [place] [address]Performed By: #### 2132-9 ####[facility] LABCLIA [id number] [address] [address] [facility] PULASKIBaselect specialty hospital Metabolic Panelon 69-66-7101Wfjwp gap [Moles/Vol]9 mmol/LNormal9-15 [facility] HospitalComment on above:Performed By: #### PGLU #### [facility] [address] [place] [address] Vnxzcwx [Mass/Vol]8.5 mg/dLNormal8.5-9.9[facility] HospitalComment on above:Performed By: #### PGLU #### [facility] [address] [place] [address] Bjazrvum [Moles/Vol]103 mmol/QOcljzb22-578FsrxpGunnison Valley HospitalComment on above:Performed By: #### PGLU #### [facility] [address] [place] [address] WJ1 [Moles/Vol]27 mmol/RKyzsfr07-10JttxrGunnison Valley Hospital Comment on above:Performed By: #### PGLU #### [facility] [address] [place] [address] Dhngbttumh [Mass/Vol]0.90 mg/dLNormal0.50-0.90G[facility] Valley HospitalComment on above:Performed By: #### PGLU #### [facility] [address] [place] [address] BYS15.0Normal>60[facility] HospitalComment on above:Result Comment: Pediatric calculator link [...] renal tubular secretion.Performed By: #### PGLU #### [facility] [address] [place] [address] Knxhzxc [Mass/Vol]135 mg/dLCritically esfb20-95SomftUCHealth Highlands Ranch HospitalComment on above:Performed By: #### PGLU #### [facility] [address] [place] [address] Dwzwiepxh [Moles/Vol]4.7 mmol/LNormal3.4-4.9[facility] HospitalComment on above:Performed By: #### PGLU #### [facility] [address] [place] [address] Beyubo [Moles/Vol]139 mmol/QJkmczd947-178YtwilGunnison Valley HospitalComment on above:Performed By: #### PGLU #### [facility] [address] [place] [address] Auyp nitrogen [Mass/Vol]32 mg/dLCritically high6-20[facility] HospitalComment on above:Performed By: #### PGLU #### [facility] [address] [place] [address] EZZ With Platelet and Differentialon 92-27-9094Qkghmcifd (Bld) [#/Vol]0.0 10*3/uLNormal0.0-0.2MUCHealth Highlands Ranch HospitalComment on above: Performed By: #### CBCWD #### [facility] [address] [place] [address] Lliwzfmix/100 WBC (Bld)0.4 %NormalGunnison Valley Hospital Comment on above:Performed By: #### CBCWD #### [facility] [address] [place] [address] Xzmrmlxpzbr (Bld) [#/Vol]0.1 10*3/uLNormal0.0-0.7Gunnison Valley HospitalComment on above:Performed By: #### CBCWD #### [facility] [address] [place] [address] Trmdrbptesl/100 WBC (Bld)2.3 %[facility] Comment on above:Performed By: #### CBCWD #### [facility] [address] [place] [address] Rzroqrteksy distribution width (RBC) [Ratio]14.8 %Critically high 11.5-14.5G[facility] Valley HospitalComment on above:Performed By: #### CBCWD #### [facility] [address] [place] [address] Rjtdvgovib (Bld) [Volume fraction]30.2 %Low37.0-47.0G[facility] Valley HospitalComment on above:Performed By: #### CBCWD #### [facility] [address] [place] [address] Mqxnsjtynw (Bld) [Mass/Vol]9.6 g/dLLow12.0-16.0G[facility] Valley HospitalComment on above:Performed By: #### CBCWD #### [facility] [address] [place] [address] Tvcmcjmnejv (Bld) [#/Vol]1.0 10*3/uLNormal1.0-4.8[facility] HospitalComment on above:Performed By: #### CBCWD #### [facility] [address] [place] [address] Ifwxyouhlzg/100 WBC (Bld)21.8 %[facility] Comment on above:Performed By: #### CBCWD #### [facility] [address] [place] [address] HWD (RBC) [Entitic mass]30.0 rrGengiv89.0-31.3MUCHealth Highlands Ranch HospitalComment on above:Performed By: #### CBCWD #### [facility] [address] [place] [address] PSCK07.8 %Low33.0-37.0G[facility] Valley HospitalComment on above: Performed By: #### CBCWD #### [facility] [address] [place] [address] FVT (RBC) [Entitic vol]94.4 qLWsgpyj48.4-94.8G[facility] HospitalComment on above:Performed By: #### CBCWD #### [facility] [address] [place] [address] Orwvwnkor (Bld) [#/Vol]0.5 10*3/uLNormal0.2-0.8[facility] Valley HospitalComment on above:Performed By: #### CBCWD #### [facility] [address] [place] [address] Kkenanmti/100 WBC (Bld)11.3 %[facility] Comment on above:Performed By: #### CBCWD #### [facility] [address] [place] [address] Icklknwhslr (Bld) [#/Vol]3.0 10*3/uLNormal1.4-6.5G[facility] HospitalComment on above:Performed By: #### CBCWD #### [facility] [address] [place] [address] Wvgjohtazdo/100 WBC (Bld)63.8 %[facility] Comment on above:Performed By: #### CBCWD #### [facility] [address] [place] [address] Wguzzqgxh (Bld) [#/Vol]361 10*3/mGDkajmu686-490BtwwbGunnison Valley HospitalComment on above:Performed By: #### CBCWD #### [facility] [address] [place] [address] ZXI (Bld) [#/Vol]3.20 10*6/uLLow4.20-5.40G[facility] Valley HospitalComment on above:Performed By: #### CBCWD #### [facility] [address] [place] [address] AWA (Bld) [#/Vol]4.8 10*3/uLNormal4.8-10.8G[facility] Valley HospitalComment on above:Performed By: #### CBCWD #### [facility] [address] [place] [address] RHXC Glucoseon 34-81-7634Xluskca [Mass/Vol]91 mg/uKKdcxcr44-88SfovhUCHealth Highlands Ranch HospitalComment on above:Performed By: #### PGLU #### [facility] [address] [place] [address] XGV Performed onREGIONS HOSPITALU-Gunnison Valley HospitalComment on above:Performed By: #### PGLU #### [facility] [address] [place] [address] Gcjmvep [Mass/Vol]165 mg/dLCritically nqno31-44Pgsmp[address] [place], [place] [address]Comment on above:Performed By: #### PGLU #### [facility] [address] [place] [address] VDR Performed onREGIONS HOSPITALUPoudre Valley HospitalComment on above:Performed By: #### PGLU #### [facility] [address] [place] [address] GADT Glucoseon 17-10-9328Qzdsclx [Mass/Vol]150 mg/dLCritically high 70-99MUCHealth Highlands Ranch HospitalComment on above:Performed By: #### CBCWD #### [facility] [address] [place] [address] UPN Performed [facility] Medical CenterUPoudre Valley HospitalComment on above:Performed By: #### CBCWD #### [facility] [address] [place] [address] Igqgqrk [Mass/Vol]109 mg/dLCritically rntc74-72Kahck[address] [place], [place] [address]Comment on above:Performed By: #### PGLU #### [facility] [address] [place] [address] GDL Performed onLutheran Medical CenterComment on above:Performed By: #### PGLU #### [facility] [address] [place] [address] Rbkhybh [Mass/Vol]186 mg/dLCritically gsnl96-18Nxotw[address] [place], [place] [address]Comment on above:Performed By: #### PGLU #### [facility] [address] [place] [address] VKQ Performed onLutheran Medical CenterComment on above:Performed By: #### PGLU #### [facility] [address] [place] [address] Zfguimw [Mass/Vol]89 mg/vBTbugwd94-31Oqrmk[address] Comment on above:Performed By: #### PGLU #### [facility] [address] [place] [address] [facility] CenterComment on above:Performed By: #### PGLU #### [facility] [address] [place] [address] DYKO Glucoseon 10-81-2134Wzcmrep [Mass/Vol]115 mg/dLCritically high 70-[address] [place], [place] [address]Comment on above:Performed By: #### PGLU #### [facility] [address] [place] [address] [facility] Medical CenterComment on above:Performed By: #### PGLU #### [facility] [address] [place] [address] Wfuteco [Mass/Vol]123 mg/dLCritically dbav69-70Bgoqq[address] [place], [place] [address]Comment on above:Performed By: #### PGLU #### [facility] [address] [place] [address] [facility] Medical CenterComment on above:Performed By: #### PGLU #### [facility] [address] [place] [address] Oshphqw [Mass/Vol]137 mg/dLCritically zbst39-21Fadcy[address] [place], [place] [address]Comment on above:Performed By: #### PGLU #### [facility] [address] [place] [address] [facility] Medical CenterComment on above:Performed By: #### PGLU #### [facility] [address] [place] [address] Bxovdgb [Mass/Vol]137 mg/dLCritically qimm25-34Yxqnb[address] [place], [place] [address]Comment on above:Performed By: #### PGLU #### [facility] [address] [place] [address] [facility] Medical CenterComment on above:Performed By: #### PGLU #### [facility] [address] [place] [address] Sobxyqtfo susceptibility panel by [facility] [id number] susceptibility panel DANA (Isol)ORDER#: [id number] ORDERED BY: CONCEPCIÓN WAGNER SOURCE: Urine Clean Catch COLLECTED: 09/15/24 15:17 ANTIBIOTICS AT [facility].: RECEIVED : 09/15/24 15:17 Culture, Urine FINAL 09/17/24 22:27 Performed at [address] [address] ([phone] Proteus mirabilis 50 TO 100,000 CFU/ML P. [...] pneumoniae, and P. mirabilis S=SUSCEPTIBLE I=INTERMEDIATE R=RESISTANT NormalGunnison Valley HospitalComment on above:Performed By: #### PGLU #### [facility] [address] [place] [address] Jkzcl Metabolic Panelon 59-52-0274Cahoe gap [Moles/Vol]6 mmol/LLow 12-29G[facility] Valley HospitalComment on above:Performed By: #### PGLU #### [facility] [address] [place] [address] Bmqlhhp [Mass/Vol]8.9 mg/dLNormal8.5-9.9G[facility] Valley HospitalComment on above:Performed By: #### PGLU #### [facility] [address] [place] [address] Snvxsuuv [Moles/Vol]104 mmol/SIvgvcy97-379ZhccgGunnison Valley HospitalComment on above:Performed By: #### PGLU #### [facility] [address] [place] [address] FI7 [Moles/Vol]28 mmol/ZWbwtih05-11SmpzeGunnison Valley Hospital Comment on above:Performed By: #### PGLU #### [facility] [address] [place] [address] Noimtkdixf [Mass/Vol]0.53 mg/dLNormal0.50-0.90G[facility] Valley HospitalComment on above:Performed By: #### PGLU #### [facility] [address] [place] [address] SJA>90.0Normal>60G[facility] Valley HospitalComment on above: Result Comment: Pediatric calculator [...] renal tubular secretion.Performed By: #### PGLU #### [facility] [address] [place] [address] Xsihqyd [Mass/Vol]118 mg/dLCritically lmdu38-31NmhtuUCHealth Highlands Ranch HospitalComment on above:Performed By: #### PGLU #### [facility] [address] [place] [address] Thiyoyqhs [Moles/Vol]4.3 mmol/LNormal3.4-4.9G[facility] HospitalComment on above:Performed By: #### PGLU #### [facility] [address] [place] [address] Sxuppn [Moles/Vol]138 mmol/CEjnwfx870-330TvzptGunnison Valley HospitalComment on above:Performed By: #### PGLU #### [facility] [address] [place] [address] Wbgc nitrogen [Mass/Vol]28 mg/dLCritically high6-20G[facility] HospitalComment on above:Performed By: #### PGLU #### [facility] [address] [place] [address] CZU With Platelet and Differentialon 90-11-6285Lordsjkee (Bld) [#/Vol]0.0 10*3/uLNormal0.0-0.2MUCHealth Highlands Ranch HospitalComment on above: Performed By: #### CBCWD #### [facility] [address] [place] [address] Yrvwjwbkr/100 WBC (Bld)0.5 %[facility] Comment on above:Performed By: #### CBCWD #### [facility] [address] [place] [address] Ptmdrysntqn (Bld) [#/Vol]0.1 10*3/uLNormal0.0-0.7[facility] HospitalComment on above:Performed By: #### CBCWD #### [facility] [address] [place] [address] Vpozalxnacg/100 WBC (Bld)2.5 %[facility] Comment on above:Performed By: #### CBCWD #### [facility] [address] [place] [address] Wmaoftqudde distribution width (RBC) [Ratio]14.8 %Critically high 11.5-14.5G[facility] HospitalComment on above:Performed By: #### CBCWD #### [facility] [address] [place] [address] Oodxywgkbr (Bld) [Volume fraction]31.7 %Low37.0-47.0[facility] HospitalComment on above:Performed By: #### CBCWD #### [facility] [address] [place] [address] Irajqgxhrm (Bld) [Mass/Vol]9.9 g/dLLow12.0-16.0[facility] HospitalComment on above:Performed By: #### CBCWD #### [facility] [address] [place] [address] Gdnrzgnxvyw (Bld) [#/Vol]1.0 10*3/uLNormal1.0-4.8[facility] HospitalComment on above:Performed By: #### CBCWD #### [facility] [address] [place] [address] Snhekkvbxgr/100 WBC (Bld)23.1 %NormalGunnison Valley Hospital Comment on above:Performed By: #### CBCWD #### [facility] [address] [place] [address] QVW (RBC) [Entitic mass]29.6 heSgjtyr79.0-31.3MUCHealth Highlands Ranch HospitalComment on above:Performed By: #### CBCWD #### [facility] [address] [place] [address] XXYA05.2 %Low33.0-37.0[facility] HospitalComment on above: Performed By: #### CBCWD #### [facility] [address] [place] [address] LHB (RBC) [Entitic vol]94.9 fLCritically high79.4-94.8[facility] HospitalComment on above:Performed By: #### CBCWD #### [facility] [address] [place] [address] Uqililiku (Bld) [#/Vol]0.5 10*3/uLNormal0.2-0.8[facility] HospitalComment on above:Performed By: #### CBCWD #### [facility] [address] [place] [address] Nzwrwehdo/100 WBC (Bld)11.1 %[facility] Comment on above:Performed By: #### CBCWD #### [facility] [address] [place] [address] Qdbvrpfnuap (Bld) [#/Vol]2.7 10*3/uLNormal1.4-6.5[facility] HospitalComment on above:Performed By: #### CBCWD #### [facility] [address] [place] [address] Rqzgnwqoblp/100 WBC (Bld)62.6 %[facility] Comment on above:Performed By: #### CBCWD #### [facility] [address] [place] [address] Imruclavz (Bld) [#/Vol]412 10*3/uLCritically pamu188-131PmqqpGunnison Valley HospitalComment on above:Performed By: #### CBCWD #### [facility] [address] [place] [address] QZC (Bld) [#/Vol]3.34 10*6/uLLow4.20-5.40[facility] HospitalComment on above:Performed By: #### CBCWD #### [facility] [address] [place] [address] SFS (Bld) [#/Vol]4.3 10*3/uLLow4.8-10.8[facility] Comment on above:Performed By: #### CBCWD #### [facility] [address] [place] [address] Pfuzkmg, Urineon 08-74-7389Uqkrnrc, UrineORDER#: [id number] ORDERED BY: CONCEPCIÓN WAGNER SOURCE: Urine Clean Catch COLLECTED: 09/15/24 15:17 ANTIBIOTICS AT [facility].: RECEIVED : 09/15/24 15:17 Culture, Urine PRELIM 09/16/24 23:14 [place] [address] Proteus mirabilis 50 TO 100,000 CFU/[facility] CampusComment on above: Performed By: #### PGLU #### [facility] [address] [place] [address] HZAN Glucoseon 88-34-6978Crbiwgd [Mass/Vol]103 mg/dLCritically high 70-[address] [place], [place] [address]Comment on above:Performed By: #### CBCWD #### [facility] [address] [place] [address] [facility] CenterComment on above:Performed By: #### CBCWD #### [facility] [address] [place] [address] Xeiuhmo [Mass/Vol]140 mg/dLCritically guez49-02Alvzc86 [address] StreetComment on above:Performed By: #### CBCWD #### [facility] [address] [place] [address] [facility] CenterComment on above:Performed By: #### CBCWD #### [facility] [address] [place] [address] Kspfgch [Mass/Vol]134 mg/dLCritically yjgh02-71Ajpoe[address] [place], [place] [address]Comment on above:Performed By: #### PGLU #### [facility] [address] [place] [address] [facility] CenterComment on above:Performed By: #### PGLU #### [facility] [address] [place] [address] Ibtajmg [Mass/Vol]122 mg/dLCritically qdue66-18BlmhmUCHealth Highlands Ranch HospitalComment on above:Performed By: #### PGLU #### [facility] [address] [place] [address] OEO Performed onACCU-CHEKNAdventHealth PorterComment on above:Performed By: #### PGLU #### [facility] [address] [place] [address] Oepyfoychy, reflex to cultureon 38-79-5987Mkgxe Reflexed to Culture YesUniversity of Colorado HospitalComment on above:Performed By: #### CBCWD #### [facility] [address] [place] [address] Oxkfzlnjn Ql (U)[facility] Comment on above:Performed By: #### CBCWD #### [facility] [address] [place] [address] Uvunrlm (U)ClearNoalCAdventHealth PorterComment on above:Performed By: #### CBCWD #### [facility] [address] [place] [address] Xvawv (U)YellowNoalStraw/YellGunnison Valley HospitalComment on above:Performed By: #### CBCWD #### [facility] [address] [place] [address] Lfbgmiq Ql (U)[facility] Comment on above:Performed By: #### CBCWD #### [facility] [address] [place] [address] Yrrrijpfkg Ql (U)SMALLAbStony Brook University Hospital Comment on above:Performed By: #### CBCWD #### [facility] [address] [place] [address] Njmahnl Ql (U)[facility] Comment on above:Performed By: #### CBCWD #### [facility] [address] [place] [address] Qidtaiiqm esterase Test strip Ql (U)SMALLAbnormalNegUCHealth Greeley HospitalComment on above:Performed By: #### CBCWD #### [facility] [address] [place] [address] Afjtodh Ql (U)NegativeNormalNegUCHealth Greeley Hospital Comment on above:Performed By: #### CBCWD #### [facility] [address] [place] [address] uD (U)7.5 [pH]Normal5.0-9.0[facility] HospitalComment on above:Performed By: #### CBCWD #### [facility] [address] [place] [address] Ynuolgg Ql (U)NegativeNormalNegUCHealth Greeley Hospital Comment on above:Performed By: #### CBCWD #### [facility] [address] [place] [address] Xzswyjjr gravity (U) [Rel density]1.167Diquoy5.005-1.03G[facility] HospitalComment on above:Performed By: #### CBCWD #### [facility] [address] [place] [address] Dqhusuizxyra Qn (U)0.2 {Ancelmo'U}/dLNormal< 2.0[facility] HospitalComment on above:Performed By: #### CBCWD #### [facility] [address] [place] [address] [employer]ude [employer] 35-01-3816Smoqyted LM.HPF (Urine sed) [#/Area] NegativeNormalNegUCHealth Greeley HospitalComment on above:Performed By: #### PGLU #### [facility] [address] [place] [address] Pxhcm Epithelial Cells Ijji1-7Syshiv9-2EooejGunnison Valley Hospital Comment on above:Performed By: #### PGLU #### [facility] [address] [place] [address] Xfuqa Hyaline Casts Uorw2-7Qpnziz6-5Ijntr[address] [place] [address] Comment on above:Performed By: #### PGLU #### [facility] [address] [place] [address] Mdysa RBC Ltiy14-16Cjvkhtqm5-8Bkbra[address] [place], [place] [address]Comment on above:Performed By: #### PGLU #### [facility] [address] [place] [address] Ptwkk WBC Ejct32-12Lxrrwqeb5-8Gntbv[address] [place], [place] [address]Comment on above:Performed By: #### PGLU #### [facility] [address] [place] [address] SUSO Glucoseon 23-29-3896Wlknljs [Mass/Vol]103 mg/dLCritically high 70-99MUCHealth Highlands Ranch HospitalComment on above:Performed By: #### CBCWD #### [facility] [address] [place] [address] RJD Performed onLutheran Medical CenterComment on above:Performed By: #### CBCWD #### [facility] [address] [place] [address] Ejmrxqh [Mass/Vol]146 mg/dLCritically zkzp68-05HlkjqUCHealth Highlands Ranch HospitalComment on above:Performed By: #### PGLU #### [facility] [address] [place] [address] BWE Performed onREGIONS HOSPITALUPoudre Valley HospitalComment on above:Performed By: #### PGLU #### [facility] [address] [place] [address] Lcwhdvn [Mass/Vol]156 mg/dLCritically unoe51-33PhabmUCHealth Highlands Ranch HospitalComment on above:Performed By: #### PGLU #### [facility] [address] [place] [address] KFX Performed onLutheran Medical CenterComment on above:Performed By: #### PGLU #### [facility] [address] [place] [address] Aakhvye [Mass/Vol]113 mg/dLCritically arwx54-73Zssfh[address] [place], [place] [address]Comment on above:Performed By: #### PGLU #### [facility] [address] [place] [address] EVP Performed onREGIONS HOSPITALU-Gunnison Valley HospitalComment on above:Performed By: #### PGLU #### [facility] [address] [place] [address] BLKT Glucoseon 78-94-0934Zbbdkez [Mass/Vol]151 mg/dLCritically high 70-[address] [place], [place] [address]Comment on above:Performed By: #### PGLU #### [facility] [address] [place] [address] LLG Performed onREGIONS HOSPITALU-Gunn[facility] Valley HospitalComment on above:Performed By: #### PGLU #### [facility] [address] [place] [address] Goxnldx [Mass/Vol]111 mg/dLCritically nbaw00-39Cghnw[address] [place], [place] [address]Comment on above:Performed By: #### PGLU #### [facility] [address] [place] [address] ZQL Performed onLutheran Medical CenterComment on above:Performed By: #### PGLU #### [facility] [address] [place] [address] QUUAib 02-56-4760VNVNLtdzniapj (HEMTSA) CHIKIS TOBAR ([id number]) 1965 F Date Time Provider Department 09/12/24 [...] 1 diabetes mellitus with (more content not included)...Normal[facility] Glucoseon 50-20-2234Dgalxgz [Mass/Vol]146 mg/dLCritically opka48-31YcjnyUCHealth Highlands Ranch HospitalComment on above:Performed By: #### CBCWD #### [facility] [address] [place] [address] VHI Performed onREGIONS HOSPITALU-Gunn[facility] Valley HospitalComment on above:Performed By: #### CBCWD #### [facility] [address] [place] [address] Luyacyy [Mass/Vol]122 mg/dLCritically niwf44-80ZdhemUCHealth Highlands Ranch HospitalComment on above:Performed By: #### PGLU #### [facility] [address] [place] [address] MVJ Performed onLutheran Medical CenterComment on above:Performed By: #### PGLU #### [facility] [address] [place] [address] Iuovlti [Mass/Vol]114 mg/dLCritically mgjb06-86ViuwcUCHealth Highlands Ranch HospitalComment on above:Performed By: #### CBCWD #### [facility] [address] [place] [address] PIJ Performed onREGIONS HOSPITALU-Gunn[facility] Valley HospitalComment on above:Performed By: #### CBCWD #### [facility] [address] [place] [address] Kaqmjab [Mass/Vol]108 mg/dLCritically foql28-62AgqiwUCHealth Highlands Ranch HospitalComment on above:Performed By: #### PGLU #### [facility] [address] [place] [address] QBT Performed onREGIONS HOSPITALUPoudre Valley HospitalComment on above:Performed By: #### PGLU #### [facility] [address] [place] [address] Kyurj Metabolic Panelon 27-14-6023Nmenw gap [Moles/Vol]8 mmol/LLow 9-15G[facility] HospitalComment on above:Performed By: #### PGLU #### [facility] [address] [place] [address] Dnypqun [Mass/Vol]8.5 mg/dLNormal8.5-9.9[facility] HospitalComment on above:Performed By: #### PGLU #### [facility] [address] [place] [address] Jtmvgnsi [Moles/Vol]103 mmol/NOaxeir62-091NlishGunnison Valley HospitalComment on above:Performed By: #### PGLU #### [facility] [address] [place] [address] SH0 [Moles/Vol]29 mmol/BJuraxn98-85YspxmGunnison Valley Hospital Comment on above:Performed By: #### PGLU #### [facility] [address] [place] [address] Ljklxvzaff [Mass/Vol]0.52 mg/dLNormal0.50-0.90G[facility] HospitalComment on above:Performed By: #### PGLU #### [facility] [address] [place] [address] IWD>90.0Normal>60G[facility] HospitalComment on above: Result Comment: Pediatric calculator [...] renal tubular secretion.Performed By: #### PGLU #### [facility] [address] [place] [address] Wafeesp [Mass/Vol]108 mg/dLCritically kllc73-01AurmfUCHealth Highlands Ranch HospitalComment on above:Performed By: #### PGLU #### [facility] [address] [place] [address] Blbkkicgs [Moles/Vol]4.3 mmol/LNormal3.4-4.9[facility] HospitalComment on above:Performed By: #### PGLU #### [facility] [address] [place] [address] Amrzyo [Moles/Vol]140 mmol/SHdqwaa353-491IqmusGunnison Valley HospitalComment on above:Performed By: #### PGLU #### [facility] [address] [place] [address] Lkhb nitrogen [Mass/Vol]23 mg/dLCritically high6-20[facility] HospitalComment on above:Performed By: #### PGLU #### [facility] [address] [place] [address] ADZ With Platelet and Differentialon 03-90-5715Ultumlelp (Bld) [#/Vol]0.0 10*3/uLNormal0.0-0.2MUCHealth Highlands Ranch HospitalComment on above: Performed By: #### CBCWD #### [facility] [address] [place] [address] Umphjpycg/100 WBC (Bld)0.2 %[facility] Comment on above:Performed By: #### CBCWD #### [facility] [address] [place] [address] Xjpihzucdnx (Bld) [#/Vol]0.2 10*3/uLNormal0.0-0.7G[facility] HospitalComment on above:Performed By: #### CBCWD #### [facility] [address] [place] [address] Tcyjhmtfknl/100 WBC (Bld)3.6 %[facility] Comment on above:Performed By: #### CBCWD #### [facility] [address] [place] [address] Ryfwnssfsqp distribution width (RBC) [Ratio]15.9 %Critically high 11.5-14.5G[facility] HospitalComment on above:Performed By: #### CBCWD #### [facility] [address] [place] [address] Avwkuizctr (Bld) [Volume fraction]28.8 %Low37.0-47.0Gunnison Valley HospitalComment on above:Performed By: #### CBCWD #### [facility] [address] [place] [address] Nwxzmopooq (Bld) [Mass/Vol]8.9 g/dLLow12.0-16.0[facility] HospitalComment on above:Performed By: #### CBCWD #### [facility] [address] [place] [address] Lfjtwikfyrf (Bld) [#/Vol]1.2 10*3/uLNormal1.0-4.8[facility] HospitalComment on above:Performed By: #### CBCWD #### [facility] [address] [place] [address] Bfcnljtnifb/100 WBC (Bld)29.4 %[facility] Comment on above:Performed By: #### CBCWD #### [facility] [address] [place] [address] TWX (RBC) [Entitic mass]29.5 ufLljmic57.0-31.3MUCHealth Highlands Ranch HospitalComment on above:Performed By: #### CBCWD #### [facility] [address] [place] [address] FAIS95.9 %Low33.0-37.0[facility] HospitalComment on above: Performed By: #### CBCWD #### [facility] [address] [place] [address] XGU (RBC) [Entitic vol]95.4 fLCritically high79.4-94.8[facility] HospitalComment on above:Performed By: #### CBCWD #### [facility] [address] [place] [address] Mhetcexrb (Bld) [#/Vol]0.5 10*3/uLNormal0.2-0.8[facility] HospitalComment on above:Performed By: #### CBCWD #### [facility] [address] [place] [address] Dyhhcmrmr/100 WBC (Bld)12.9 %[facility] Comment on above:Performed By: #### CBCWD #### [facility] [address] [place] [address] Absfybsjqmu (Bld) [#/Vol]2.3 10*3/uLNormal1.4-6.5[facility] HospitalComment on above:Performed By: #### CBCWD #### [facility] [address] [place] [address] Msrkceiwwfb/100 WBC (Bld)53.7 %NormalGunnison Valley Hospital Comment on above:Performed By: #### CBCWD #### [facility] [address] [place] [address] Qmlgaytxu (Bld) [#/Vol]432 10*3/uLCritically htsq882-478SukzvGunnison Valley HospitalComment on above:Performed By: #### CBCWD #### [facility] [address] [place] [address] EBC (Bld) [#/Vol]3.02 10*6/uLLow4.20-5.40[facility] HospitalComment on above:Performed By: #### CBCWD #### [facility] [address] [place] [address] MQM (Bld) [#/Vol]4.2 10*3/uLLow4.8-10.8[facility] Comment on above:Performed By: #### CBCWD #### [facility] [address] [place] [address] WGUMAAOeh 32-85-7653FYCCYZGNnbgk Visit (ORFWHP) CHIKIS TOBAR ([id number]) 1965 F Date Time Provider Department 09/11/24 9:30 AM VAMSHI SPENCER ORFWHP During your visit today, we recorded the following information about you: Vamshi Spencer, RN 09/11/2024 10:52 AM Signed Name: Chikis Tobar September 11, 2024 Date of Surgery/Injury: 08/23/24 Procedure(s): 1) left femur intramedullary nail, CPT 80698 Subjective: Patient presents today for post op splint/dressing change/removal and suture/staple removal. Patient reports: Doing well post operatively, pain is well controlled with current regimen. Patient has been WBAT to the operative extremity since surgery, but still not walking. She ss staying at an acute rehab ([facility] Objective: PHYSICAL EXAM: General:Alert, no distress, cooperative [...] RN RN Post-Op Clinic oversight/resource Aashish Monge PA-C/Humza Walden-Val Lou RN 09/11/2024 10:37 AM Signed MD Aashish Wilson PA-C Sarah Solarz, RN Orthopedic Trauma Surgery Appointments Direct Office DVT Prevention: Finish remaining aspirin for a total of 30 days from surgery. Incision Care: Conway/sutures were removed today, if Steri-Strips were placed [...] left femur, unspecified fracture morphology, initial encounter ([facility]) [S72.402A] Prescriptions as of 09/11/2024 - acetaminophen (TYLENOL) [...] every 12 hours. - (more content not included)...[facility] Glucose [Mass/Vol]95 mg/rFSdmndh46-03XqiubUCHealth Highlands Ranch HospitalComment on above:Performed By: #### PGLU #### [facility] [address] [place] [address] [facility] CenterComment on above:Performed By: #### PGLU #### [facility] [address] [place] [address] Jjgioly [Mass/Vol]121 mg/dLCritically ijcm76-65Klvka[address] [place], [place] [address]Comment on above:Performed By: #### CBCWD #### [facility] [address] [place] [address] [facility] CenterComment on above:Performed By: #### CBCWD #### [facility] [address] [place] [address] Ovsffgj [Mass/Vol]121 mg/dLCritically tvhc12-88HyamwUCHealth Highlands Ranch HospitalComment on above:Performed By: #### CBCWD #### [facility] [address] [place] [address] [facility] Medical CenterComment on above:Performed By: #### CBCWD #### [facility] [address] [place] [address] Alpcbko [Mass/Vol]124 mg/dLCritically varm57-07GthkiUCHealth Highlands Ranch HospitalComment on above:Performed By: #### CBCWD #### [facility] [address] [place] [address] [facility] Medical CenterComment on above:Performed By: #### CBCWD #### [facility] [address] [place] [address] FB FEMUR 2V AP/LAT LTon [id number] FEMUR 2V AP/LAT LT* * *Final Report* [...] changes versus fracture in the inferior patella. 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[employer] Transcribe Date/Time: Sep 15 2024 7:18A Dictated by : LIAT ANDUJAR MD This examination was interpreted and the report reviewed and electronically signed by: LIAT ANDUJAR MD on Sep 15 2024 7:22AM EST [id number] monica's home HospitalPOVA Glucoseon 41-04-7186Wsqbtno [Mass/Vol]153 mg/dLCritically xszh99-52Kwclz[address] [place], [place] [address]Comment on above:Performed By: #### PGLU #### [facility] [address] [place] [address] TCM Performed onACCUPoudre Valley HospitalComment on above:Performed By: #### PGLU #### [facility] [address] [place] [address] Xkinyek [Mass/Vol]189 mg/dLCritically ccvl96-66Iwlxg[address] [place], [place] [address]Comment on above:Performed By: #### PGLU #### [facility] [address] [place] [address] ZKO Performed onREGIONS HOSPITALU-Gunnison Valley HospitalComment on above:Performed By: #### PGLU #### [facility] [address] [place] [address] Bzdhpzq [Mass/Vol]166 mg/dLCritically yuev78-32Uxrpw[address] [place], [place] [address]Comment on above:Performed By: #### CBCWD #### [facility] [address] [place] [address] CBH Performed onREGIONS HOSPITALU-G[facility] Valley HospitalComment on above:Performed By: #### CBCWD #### [facility] [address] [place] [address] Ghbllnb [Mass/Vol]260 mg/dLCritically kwdf22-35Vvcen[address] [place], [place] [address]Comment on above:Performed By: #### PGLU #### [facility] [address] [place] [address] KNR Performed onLutheran Medical CenterComment on above:Performed By: #### PGLU #### [facility] [address] [place] [address] BPOY Glucoseon 10-08-2555Qtpnjbe [Mass/Vol]275 mg/dLCritically high 70-[address] [place], [place] [address]Comment on above:Performed By: #### PGLU #### [facility] [address] [place] [address] [facility] Medical CenterComment on above:Performed By: #### PGLU #### [facility] [address] [place] [address] Jtpfuoi [Mass/Vol]213 mg/dLCritically bsod80-78JoxlvUCHealth Highlands Ranch HospitalComment on above:Performed By: #### CBCWD #### [facility] [address] [place] [address] BNT Performed onLutheran Medical CenterComment on above:Performed By: #### CBCWD #### [facility] [address] [place] [address] Lvhdjmq [Mass/Vol]221 mg/dLCritically wxmh75-05YailpUCHealth Highlands Ranch HospitalComment on above:Performed By: #### PGLU #### [facility] [address] [place] [address] [facility] Medical CenterComment on above:Performed By: #### PGLU #### [facility] [address] [place] [address] Nazhrfo [Mass/Vol]159 mg/dLCritically pelo59-22RoardUCHealth Highlands Ranch HospitalComment on above:Performed By: #### PGLU #### [facility] [address] [place] [address] [facility] Medical CenterComment on above:Performed By: #### PGLU #### [facility] [address] [place] [address] Cxbrk Metabolic Panelon 50-76-2351Lynlz gap [Moles/Vol]7 mmol/LLow -15[facility] Valley HospitalComment on above:Order Comment: Collection has been rescheduled by CADE at 09/08/2024 06:01 Reason:Collected used plabels Performed By: #### PGLU #### [facility] [address] [place] [address] Orwjdza [Mass/Vol]8.5 mg/dLNormal8.5-9.9[facility] HospitalComment on above:Order Comment: Collection has been rescheduled by CADE at 09/08/2024 06:01 Reason:Collected used plabelsPerformed By: #### PGLU #### [facility] [address] [place] [address] Rgepbyph [Moles/Vol]102 mmol/IGdqnmb04-467KozxyGunnison Valley HospitalComment on above:Order Comment: Collection has been rescheduled by CADE at 09/08/2024 06:01 Reason:Collected used plabelsPerformed By: #### PGLU #### [facility] [address] [place] [address] GV3 [Moles/Vol]29 mmol/BFejhau03-09BtycdGunnison [facility] Hospital Comment on above:Order Comment: Collection has been rescheduled by CADE at 09/08/2024 06:01 Reason:Collected used plabelsPerformed By: #### PGLU #### [facility] [address] [place] [address] Umbbarmlnh [Mass/Vol]0.49 mg/dLLow0.50-0.90[facility] HospitalComment on above:Order Comment: Collection has been rescheduled by CADE at 09/08/2024 06:01 Reason:Collected used plabelsPerformed By: #### PGLU #### [facility] [address] [place] [address] TDF>90.0Normal>60[facility] HospitalComment on above:Order Comment: Collection has been rescheduled by JOSÉ MIGUELGA at 09/08/2024 06:01 Reason:Collected used plabelsResult Comment: [...] renal tubular secretion.Performed By: #### PGLU #### [facility] [address] [address] Xmfucxy [Mass/Vol]94 mg/nDQzrppq00-93FkdlkUCHealth Highlands Ranch Hospital Comment on above:Order Comment: Collection has been rescheduled by CADE at 09/08/2024 06:01 Reason:Collected used plabelsPerformed By: #### PGLU #### [facility] [address] [place] [address] Ofcrhcmal [Moles/Vol]4.3 mmol/LNormal3.4-4.9[facility] HospitalComment on above:Order Comment: Collection has been rescheduled by JOSÉ MIGUELGA at 09/08/2024 06:01 Reason:Collected used plabelsPerformed By: #### PGLU #### [facility] [address] [place] [address] Xkqnxk [Moles/Vol]138 mmol/BAypymq442-642QluqsGunnison Valley HospitalComment on above:Order Comment: Collection has been rescheduled by CADE at 09/08/2024 06:01 Reason:Collected used plabelsPerformed By: #### PGLU #### [facility] [address] [place] [address] Wscb nitrogen [Mass/Vol]22 mg/dLCritically high6-20[facility] HospitalComment on above:Order Comment: Collection has been rescheduled by JOSÉ MIGUELGA at 09/08/2024 06:01 Reason:Collected used plabelsPerformed By: #### PGLU #### [facility] [address] [place] [address] NMF With Platelet and Differentialon 99-00-4783Ectvzyjxq (Bld) [#/Vol]0.0 10*3/uLNormal0.0-0.2MUCHealth Highlands Ranch HospitalComment on above: Order Comment: Collection has been rescheduled by CADE at 09/08/2024 06:01 Reason:Collected used plabelsPerformed By: #### PGLU #### [facility] [address] [place] [address] Nvvnruerv/100 WBC (Bld)0.5 %[facility] Comment on above:Order Comment: Collection has been rescheduled by CADE at 09/08/2024 06:01 Reason:Collected used plabelsPerformed By: #### PGLU #### [facility] [address] [place] [address] Vlpdrmbuodm (Bld) [#/Vol]0.2 10*3/uLNormal0.0-0.7[facility] HospitalComment on above:Order Comment: Collection has been rescheduled by CADE at 09/08/2024 06:01 Reason:Collected used plabelsPerformed By: #### PGLU #### [facility] [address] [place] [address] Ikrvtmdvwdu/100 WBC (Bld)3.6 %[facility] Comment on above:Order Comment: Collection has been rescheduled by CADE at 09/08/2024 06:01 Reason:Collected used plabelsPerformed By: #### PGLU #### [facility] [address] [place] [address] Kslxnrgiyhp distribution width (RBC) [Ratio]16.3 %Critically high 11.5-14.5[facility] HospitalComment on above:Order Comment: Collection has been rescheduled by CADE at 09/08/2024 06:01 Reason:Collected used plabels Performed By: #### PGLU #### [facility] [address] [place] [address] Ogwhomqhra (Bld) [Volume fraction]28.1 %Low37.0-47.0[facility] HospitalComment on above:Order Comment: Collection has been rescheduled by CADE at 09/08/2024 06:01 Reason:Collected used plabelsPerformed By: #### PGLU #### [facility] [address] [place] [address] Dutpwlfopz (Bld) [Mass/Vol]8.8 g/dLLow12.0-16.0[facility] HospitalComment on above:Order Comment: Collection has been rescheduled by CADE at 09/08/2024 06:01 Reason:Collected used plabelsPerformed By: #### PGLU #### [facility] [address] [place] [address] Nbbgfqrcttd (Bld) [#/Vol]0.9 10*3/uLLow1.0-4.8[facility] HospitalComment on above:Order Comment: Collection has been rescheduled by CADE at 09/08/2024 06:01 Reason:Collected used plabelsPerformed By: #### PGLU #### [facility] [address] [place] [address] Autmbsqpxcq/100 WBC (Bld)20.4 %NormalGunnison Valley Hospital Comment on above:Order Comment: Collection has been rescheduled by CADE at 09/08/2024 06:01 Reason:Collected used plabelsPerformed By: #### PGLU #### [facility] [address] [place] [address] NYV (RBC) [Entitic mass]30.0 crYvpiru54.0-31.3MUCHealth Highlands Ranch HospitalComment on above:Order Comment: Collection has been rescheduled by CADE at 09/08/2024 06:01 Reason:Collected used plabelsPerformed By: #### PGLU #### [facility] [address] [place] [address] KXCA13.3 %Low33.0-37.0[facility] HospitalComment on above: Order Comment: Collection has been rescheduled by CADE at 09/08/2024 06:01 Reason:Collected used plabelsPerformed By: #### PGLU #### [facility] [address] [place] [address] MPH (RBC) [Entitic vol]95.9 fLCritically high79.4-94.8[facility] HospitalComment on above:Order Comment: Collection has been rescheduled by DAMGA at 09/08/2024 06:01 Reason:Collected used plabelsPerformed By: #### PGLU #### [facility] [address] [place] [address] Wfgtblrwb (Bld) [#/Vol]0.5 10*3/uLNormal0.2-0.8[facility] HospitalComment on above:Order Comment: Collection has been rescheduled by DAMGA at 09/08/2024 06:01 Reason:Collected used plabelsPerformed By: #### PGLU #### [facility] [address] [place] [address] Clvapbsra/100 WBC (Bld)10.7 %[facility] Comment on above:Order Comment: Collection has been rescheduled by DAMGA at 09/08/2024 06:01 Reason:Collected used plabelsPerformed By: #### PGLU #### [facility] [address] [address] Dqosbzhktlw (Bld) [#/Vol]2.7 10*3/uLNormal1.4-6.5[facility] HospitalComment on above:Order Comment: Collection has been rescheduled by DAMGA at 09/08/2024 06:01 Reason:Collected used plabelsPerformed By: #### PGLU #### [facility] [address] [address] Afhtqnrzrkj/100 WBC (Bld)64.3 %[facility] Comment on above:Order Comment: Collection has been rescheduled by DAMGA at 09/08/2024 06:01 Reason:Collected used plabelsPerformed By: #### PGLU #### [facility] [address] [place] [address] Yeshhgtvw (Bld) [#/Vol]490 10*3/uLCritically urzx305-284YcpaeGunnison Valley HospitalComment on above:Order Comment: Collection has been rescheduled by DAMGA at 09/08/2024 06:01 Reason:Collected used plabelsPerformed By: #### PGLU #### [facility] [address] [place] [address] FMW (Bld) [#/Vol]2.93 10*6/uLLow4.20-5.40[facility] HospitalComment on above:Order Comment: Collection has been rescheduled by CADE at 09/08/2024 06:01 Reason:Collected used plabelsPerformed By: #### PGLU #### [facility] [address] [place] [address] EOZ (Bld) [#/Vol]4.2 10*3/uLLow4.8-10.8[facility] Comment on above:Order Comment: Collection has been rescheduled by CADE at 09/08/2024 06:01 Reason:Collected used plabelsPerformed By: #### PGLU #### [facility] [address] [place] [address] YXYS Glucoseon 36-72-4358Vnhjonb [Mass/Vol]215 mg/dLCritically high 70-[address] [place], [place] [address]Comment on above:Performed By: #### PGLU #### [facility] [address] [place] [address] XPO Performed onLutheran Medical CenterComment on above:Performed By: #### PGLU #### [facility] [address] [place] [address] Qdcwjgv [Mass/Vol]186 mg/dLCritically loof91-53NxuehUCHealth Highlands Ranch HospitalComment on above:Performed By: #### PGLU #### [facility] [address] [place] [address] OEQ Performed onLutheran Medical CenterComment on above:Performed By: #### PGLU #### [facility] [address] [place] [address] Lsozwbw [Mass/Vol]121 mg/dLCritically kdqq70-38Ypflc[address] [place], [place] [address]Comment on above:Performed By: #### PGLU #### [facility] [address] [place] [address] [facility] Medical CenterComment on above:Performed By: #### PGLU #### [facility] [address] [place] [address] Xdmfnha [Mass/Vol]91 mg/lQCaxosd61-61Tzjsq[address] Comment on above:Performed By: #### PGLU #### [facility] [address] [place] [address] [facility] Medical CenterComment on above:Performed By: #### PGLU #### [facility] [address] [place] [address] OXHP Glucoseon 72-28-5391Rvexugk [Mass/Vol]150 mg/dLCritically high 70-[address] [place], [place] [address]Comment on above:Performed By: #### CBCWD #### [facility] [address] [place] [address] [facility] Medical CenterComment on above:Performed By: #### CBCWD #### [facility] [address] [place] [address] Mybmbmx [Mass/Vol]88 mg/uGVcbnfz26-66Fffre[address] Comment on above:Performed By: #### PGLU #### [facility] [address] [place] [address] [facility] CenterComment on above:Performed By: #### PGLU #### [facility] [address] [place] [address] Msipzwn [Mass/Vol]154 mg/dLCritically pamk78-75CcyxxUCHealth Highlands Ranch HospitalComment on above:Performed By: #### PGLU #### [facility] [address] [place] [address] XNV Performed onLutheran Medical CenterComment on above:Performed By: #### PGLU #### [facility] [address] [place] [address] Ilmxdod [Mass/Vol]105 mg/dLCritically uywc46-71WdehcUCHealth Highlands Ranch HospitalComment on above:Performed By: #### PGLU #### [facility] [address] [place] [address] WIS Performed onLOMA LINDA UNIVERS[facility]-G[facility] Valley HospitalComment on above:Performed By: #### PGLU #### [facility] [address] [place] [address] BZTY Glucoseon 62-13-3162Dgodwwm [Mass/Vol]123 mg/dLCritically high 70-99MUCHealth Highlands Ranch HospitalComment on above:Performed By: #### PGLU #### [facility] [address] [place] [address] XYV Performed onLutheran Medical CenterComment on above:Performed By: #### PGLU #### [facility] [address] [place] [address] Cnbroog [Mass/Vol]137 mg/dLCritically xwpc13-49DrsqgUCHealth Highlands Ranch HospitalComment on above:Performed By: #### PGLU #### [facility] [address] [place] [address] XFB Performed onLutheran Medical CenterComment on above:Performed By: #### PGLU #### [facility] [address] [place] [address] Nqkgfsx [Mass/Vol]175 mg/dLCritically zycs09-55YciubUCHealth Highlands Ranch HospitalComment on above:Performed By: #### PGLU #### [facility] [address] [place] [address] POB Performed onREGIONS HOSPITALU-J.W. RU[facility] HOSPITALormalMercy Regional Medical CenterComment on above:Performed By: #### PGLU #### [facility] [address] [place] [address] Txexacp [Mass/Vol]81 mg/aHAkcqto74-95Lwqzu[address] [place] [address] Comment on above:Performed By: #### PGLU #### [facility] [address] [place] [address] HZK Performed onLutheran Medical CenterComment on above:Performed By: #### PGLU #### [facility] [address] [place] [address] OKJD Glucoseon 75-97-8156Yxsmbhx [Mass/Vol]193 mg/dLCritically high 70-[address] [place], [place] [address]Comment on above:Performed By: #### PGLU #### [facility] [address] [place] [address] [facility] Medical CenterComment on above:Performed By: #### PGLU #### [facility] [address] [place] [address] Zlhynal [Mass/Vol]359 mg/dLCritically tbil19-26Evezp[address] [place], [place] [address]Comment on above:Performed By: #### PGLU #### [facility] [address] [place] [address] [facility] Medical CenterComment on above:Result Comment: Notified RN or MDPerformed By: #### PGLU #### [facility] [address] [place] [address] Rxwixvq [Mass/Vol]294 mg/dLCritically dlwe02-87Mhwlo[address] [place], [place] [address]Comment on above:Performed By: #### PGLU #### [facility] [address] [place] [address] [facility] Medical CenterComment on above:Performed By: #### PGLU #### [facility] [address] [place] [address] Zkbdkqs [Mass/Vol]246 mg/dLCritically myjv98-47SwfvhUCHealth Highlands Ranch HospitalComment on above:Performed By: #### PGLU #### [facility] [address] [place] [address] QXI Performed onLutheran Medical CenterComment on above:Performed By: #### PGLU #### [facility] [address] [place] [address] Uedywre [Mass/Vol]111 mg/dLCritically sedt31-16PprhwUCHealth Highlands Ranch HospitalComment on above:Performed By: #### PGLU #### [facility] [address] [place] [address] UWN Performed onLutheran Medical CenterComment on above:Performed By: #### PGLU #### [facility] [address] [place] [address] [place] Metabolic Panelon 82-89-3639Iaais gap [Moles/Vol]8 mmol/LLow 9-15[facility] HospitalComment on above:Performed By: #### PGLU #### [facility] [address] [place] [address] Ukfrcjz [Mass/Vol]8.7 mg/dLNormal8.5-9.9[facility] HospitalComment on above:Performed By: #### PGLU #### [facility] [address] [place] [address] Ddmannzg [Moles/Vol]107 mmol/CFccwsu19-411GxcytGunnison Valley HospitalComment on above:Performed By: #### PGLU #### [facility] [address] [place] [address] MN7 [Moles/Vol]24 mmol/IKmchdv14-27HbvjrGunnison Valley Hospital Comment on above:Performed By: #### PGLU #### [facility] [address] [place] [address] Iawctlzhlx [Mass/Vol]0.45 mg/dLLow0.50-0.90[facility] HospitalComment on above:Performed By: #### PGLU #### [facility] [address] [place] [address] GCD>90.0Normal>60[facility] HospitalComment on above: Result Comment: Pediatric calculator [...] renal tubular secretion.Performed By: #### PGLU #### [facility] [address] [place] [address] Sxbermv [Mass/Vol]115 mg/dLCritically xvvz75-58LeaobUCHealth Highlands Ranch HospitalComment on above:Performed By: #### PGLU #### [facility] [address] [place] [address] Tktghgbll [Moles/Vol]4.5 mmol/LNormal3.4-4.9[facility] HospitalComment on above:Performed By: #### PGLU #### [facility] [address] [place] [address] Hnpkwn [Moles/Vol]139 mmol/JHgqtue679-132WjmbzGunnison Valley HospitalComment on above:Performed By: #### PGLU #### [facility] [address] [place] [address] Yknq nitrogen [Mass/Vol]13 mg/dLNormal6-20[facility] HospitalComment on above:Performed By: #### PGLU #### [facility] [address] [place] [address] LVG With Platelet and Differentialon 37-07-2448Gdghzbfjn (Bld) [#/Vol]0.0 10*3/uLNormal0.0-0.2MUCHealth Highlands Ranch HospitalComment on above: Performed By: #### PGLU #### [facility] [address] [place] [address] Onopdghtt/100 WBC (Bld)0.5 %[facility] Comment on above:Performed By: #### PGLU #### [facility] [address] [place] [address] Zmzlwrmobhz (Bld) [#/Vol]0.1 10*3/uLNormal0.0-0.7[facility] HospitalComment on above:Performed By: #### PGLU #### [facility] [address] [place] [address] Xkgtklqcbsj/100 WBC (Bld)2.8 %[facility] Comment on above:Performed By: #### PGLU #### [facility] [address] [place] [address] Mxtibmuhzjb distribution width (RBC) [Ratio]16.1 %Critically high 11.5-14.5[facility] HospitalComment on above:Performed By: #### PGLU #### [facility] [address] [place] [address] Bsjdjncxut (Bld) [Volume fraction]27.0 %Low37.0-47.0[facility] HospitalComment on above:Performed By: #### PGLU #### [facility] [address] [place] [address] Enkgsfaynb (Bld) [Mass/Vol]8.5 g/dLLow12.0-16.0[facility] HospitalComment on above:Performed By: #### PGLU #### [facility] [address] [place] [address] Hsxiqrqyqwz (Bld) [#/Vol]0.9 10*3/uLLow1.0-4.8[facility] HospitalComment on above:Performed By: #### PGLU #### [facility] [address] [place] [address] Rhubtcyeefp/100 WBC (Bld)24.3 %[facility] Comment on above:Performed By: #### PGLU #### [facility] [address] [place] [address] RDY (RBC) [Entitic mass]30.0 iyJebviu12.0-31.3MUCHealth Highlands Ranch HospitalComment on above:Performed By: #### PGLU #### [facility] [address] [place] [address] JJCZ47.5 %Low33.0-37.0[facility] HospitalComment on above: Performed By: #### PGLU #### [facility] [address] [place] [address] HXG (RBC) [Entitic vol]95.4 fLCritically high79.4-94.8[facility] HospitalComment on above:Performed By: #### PGLU #### [facility] [address] [place] [address] Bpehzhhde (Bld) [#/Vol]0.4 10*3/uLNormal0.2-0.8[facility] HospitalComment on above:Performed By: #### PGLU #### [facility] [address] [place] [address] Vyhiqtwwf/100 WBC (Bld)10.3 %[facility] Comment on above:Performed By: #### PGLU #### [facility] [address] [address] Hvxbjhsslms (Bld) [#/Vol]2.4 10*3/uLNormal1.4-6.5[facility] HospitalComment on above:Performed By: #### PGLU #### [facility] [address] [place] [address] Wetsjxzgmnh/100 WBC (Bld)61.6 %NormalGunnison Valley Hospital Comment on above:Performed By: #### PGLU #### [facility] [address] [place] [address] Cogipevbq (Bld) [#/Vol]517 10*3/uLCritically isia356-604AeozaGunnison Valley HospitalComment on above:Performed By: #### PGLU #### [facility] [address] [place] [address] VKJ (Bld) [#/Vol]2.83 10*6/uLLow4.20-5.40[facility] HospitalComment on above:Performed By: #### PGLU #### [facility] [address] [place] [address] EIT (Bld) [#/Vol]3.9 10*3/uLLow4.8-10.8[facility] Comment on above:Performed By: #### PGLU #### [facility] [address] [place] [address] OHDO Glucoseon 86-07-4679Tmhwcvu [Mass/Vol]243 mg/dLCritically high 70-99MUCHealth Highlands Ranch HospitalComment on above:Performed By: #### PGLU #### [facility] [address] [place] [address] MIH Performed onREGIONS HOSPITALU-Gunnison Valley HospitalComment on above:Performed By: #### PGLU #### [facility] [address] [place] [address] Zfvmexj [Mass/Vol]279 mg/dLCritically ukwr99-20JuyiaUCHealth Highlands Ranch HospitalComment on above:Performed By: #### PGLU #### [facility] [address] [place] [address] [facility] CenterComment on above:Performed By: #### PGLU #### [facility] [address] [place] [address] Lqcfcuz [Mass/Vol]222 mg/dLCritically qjkp46-43Lilxk[address] [place], [place] [address]Comment on above:Performed By: #### PGLU #### [facility] [address] [place] [address] [facility] Medical CenterComment on above:Performed By: #### PGLU #### [facility] [address] [place] [address] Rtonquq [Mass/Vol]132 mg/dLCritically onbu25-52Ssdkf[address] [place], [place] [address]Comment on above:Performed By: #### PGLU #### [facility] [address] [place] [address] [facility]Corwin Medical CenterComment on above:Performed By: #### PGLU #### [facility] [address] [place] [address] Sxqlj Occult Blood EIAon 96-17-8327Gwlhn Occult Blood EIAORDER#: [id number] ORDERED BY: ALY GUAMAN SOURCE: Stool COLLECTED: 09/03/24 09:00 ANTIBIOTICS AT [facility].: RECEIVED : 09/03/24 09:15 Fecal Occult Blood EIA FINAL 09/03/24 09:30 Negative Normal Range:NegativeUniversity of Colorado HospitalComment on above: Performed By: #### PGLU #### [facility] [address] [place] [address] SSOP Glucoseon 52-74-1380Vddcwil [Mass/Vol]138 mg/dLCritically high 70-[address] [place], [place] [address]Comment on above:Performed By: #### PGLU #### [facility] [address] [place] [address] [facility] Medical CenterComment on above:Performed By: #### PGLU #### [facility] [address] [place] [address] Yumlnrb [Mass/Vol]105 mg/dLCritically efkl69-99Gdtjn[address] [place], [place] [address]Comment on above:Performed By: #### PGLU #### [facility] [address] [place] [address] [facility] Medical CenterComment on above:Performed By: #### PGLU #### [facility] [address] [place] [address] Hrqhjef [Mass/Vol]84 mg/xNKtpymi84-23Vpbwh[address] [place] [address] Comment on above:Performed By: #### PGLU #### [facility] [address] [place] [address] [facility]win Medical CenterComment on above:Performed By: #### PGLU #### [facility] [address] [place] [address] IDCW Miscellaneous test 189-21-5978Rkwpjqxpzmmpt Test 1SEE [facility] County Memorial HospitalComment on above:Order Comment: Specimen cancelled [...] developed and its performance characteristics determined by [facility]. It has not been cleared or approved by the [place] Food and Drug Administration. This test was performed in a CLIA certified laboratory and is intended for clinical purposes. Performed By: [facility] [address] [place] [address] Blow Moulding Machine Operator: Vasquez Gomez MD, PhD CLIA Number: [id number] By: #### CBCWD #### [facility] [address] [place] [address] V54/Folate Panelon 11-46-1537Krcbgxvgr (Vitamin B12) [Mass/Vol]606 pg/gJTnvjdq664-9673LyjicGunnison Valley HospitalFolic Acid11.1 ng/mLNormal 4.8-24.2MUCHealth Highlands Ranch HospitalComment on above:Result Comment: Performed at [facility], [address] [place] [address] .Ferritinon 06-15-2955Perdtfcl [Mass/Vol]183 ng/mLCritically high 15-150G[facility] HospitalComment on above:Result Comment: FERRITIN Reference Ranges: Adult Males 20 - 60 years: 30 - 400 ng/mL Adult females 17 - 60 years: 13 - 150 ng/mL Adults greater than 60 years: no established reference range Pediatrics: no established reference range Performed at [facility], [address] [place] [address] .Iron Binding Capon 09-02-2024% Fe Sproeaftpx43 %Zli74-52MvevuGunnison Valley HospitalIron [Mass/Vol]40 ug/jJEmvwkb10-131YjuvpGunnison Valley HospitalTotal Fe Binding Dcv754 ug/qMCoojav658-605BtgtxG[facility] Hospital Unbound Fe Bind Mjf396 ug/xKIybtwh664-173HdgstGunnison Valley HospitalComment on above:Result Comment: Performed at [facility], [address] [place] [address] .POCT Glucoseon 35-14-8924Nebuxps [Mass/Vol]69 mg/hBCyq72-48TnexwUCHealth Highlands Ranch HospitalComment on above:Performed By: #### PGLU #### [facility] [address] [place] [address] TGS Performed onLutheran Medical CenterComment on above:Performed By: #### PGLU #### [facility] [address] [place] [address] Qrexczj [Mass/Vol]138 mg/dLCritically sbda08-86CsfqpUCHealth Highlands Ranch HospitalComment on above:Performed By: #### PGLU #### [facility] [address] [place] [address] IJZ Performed onLutheran Medical CenterComment on above:Performed By: #### PGLU #### [facility] [address] [place] [address] Szwzdoq [Mass/Vol]150 mg/dLCritically mydk39-49OgvfiUCHealth Highlands Ranch HospitalComment on above:Performed By: #### PGLU #### [facility] [address] [place] [address] EDG Performed onREGIONS HOSPITALUPoudre Valley HospitalComment on above:Performed By: #### PGLU #### [facility] [address] [place] [address] Vqvwutl [Mass/Vol]143 mg/dLCritically wgxa43-13UgvlzUCHealth Highlands Ranch HospitalComment on above:Performed By: #### PGLU #### [facility] [address] [place] [address] NSG Performed onLutheran Medical CenterComment on above:Performed By: #### PGLU #### [facility] [address] [place] [address] Hvhzuxb [Mass/Vol]332 mg/dLCritically tucr64-23YoeksUCHealth Highlands Ranch HospitalComment on above:Performed By: #### PGLU #### [facility] [address] [place] [address] EGZ Performed onACCU-CHEKNormalGunnison Valley HospitalComment on above:Performed By: #### PGLU #### [facility] [address] [place] [address] Aotjd Metabolic Panelon 04-42-5257Hlmhp gap [Moles/Vol]8 mmol/LLow 9-15[facility] HospitalComment on above:Performed By: #### PGLU #### [facility] [address] [place] [address] Stkkhvv [Mass/Vol]8.4 mg/dLLow8.5-9.9[facility] Comment on above:Performed By: #### PGLU #### [facility] [address] [place] [address] Rwxeobtn [Moles/Vol]107 mmol/RHqozhm96-464TbfouGunnison Valley HospitalComment on above:Performed By: #### PGLU #### [facility] [address] [place] [address] MJ6 [Moles/Vol]23 mmol/FMrazsi69-01PxvfiGunnison Valley Hospital Comment on above:Performed By: #### PGLU #### [facility] [address] [place] [address] Elsbusodix [Mass/Vol]0.56 mg/dLNormal0.50-0.90[facility] HospitalComment on above:Performed By: #### PGLU #### [facility] [address] [place] [address] PNJ>90.0Normal>60[facility] HospitalComment on above: Result Comment: Pediatric calculator [...] renal tubular secretion.Performed By: #### PGLU #### [facility] [address] [place] [address] Sxeyhit [Mass/Vol]107 mg/dLCritically qbiy53-76LhggiUCHealth Highlands Ranch HospitalComment on above:Performed By: #### PGLU #### [facility] [address] [place] [address] Tiihlqwth [Moles/Vol]4.7 mmol/LNormal3.4-4.9[facility] HospitalComment on above:Performed By: #### PGLU #### [facility] [address] [place] [address] Wvmwpk [Moles/Vol]138 mmol/KFlxfws706-006VodneGunnison Valley HospitalComment on above:Performed By: #### PGLU #### [facility] [address] [place] [address] Vdyi nitrogen [Mass/Vol]18 mg/dLNormal6-20[facility] HospitalComment on above:Performed By: #### PGLU #### [facility] [address] [place] [address] CUL With Platelet and Differentialon 35-53-6528Ftxpxjoeb (Bld) [#/Vol]0.0 10*3/uLNormal0.0-0.2MUCHealth Highlands Ranch HospitalComment on above: Performed By: #### PGLU #### [facility] [address] [place] [address] Olnxlwrct/100 WBC (Bld)0.4 %NormalGunnison Valley Hospital Comment on above:Performed By: #### PGLU #### [facility] [address] [place] [address] Kpdqqpnqzho (Bld) [#/Vol]0.1 10*3/uLNormal0.0-0.7[facility] HospitalComment on above:Performed By: #### PGLU #### [facility] [address] [place] [address] Flrdofixrfg/100 WBC (Bld)2.8 %[facility] Comment on above:Performed By: #### PGLU #### [facility] [address] [place] [address] Wmvxfofzzcc distribution width (RBC) [Ratio]16.1 %Critically high 11.5-14.5[facility] HospitalComment on above:Performed By: #### PGLU #### [facility] [address] [place] [address] Zmlwvkzbwm (Bld) [Volume fraction]24.2 %Low37.0-47.0[facility] HospitalComment on above:Performed By: #### PGLU #### [facility] [address] [place] [address] Sghfkrllys (Bld) [Mass/Vol]7.7 g/dLLow12.0-16.0[facility] HospitalComment on above:Performed By: #### PGLU #### [facility] [address] [place] [address] Eircmbuksbq (Bld) [#/Vol]1.0 10*3/uLNormal1.0-4.8[facility] HospitalComment on above:Performed By: #### PGLU #### [facility] [address] [place] [address] Tdfavvwhqtz/100 WBC (Bld)19.8 %[facility] Comment on above:Performed By: #### PGLU #### [facility] [address] [place] [address] DKJ (RBC) [Entitic mass]30.2 svVzudtb37.0-31.3MUCHealth Highlands Ranch HospitalComment on above:Performed By: #### PGLU #### [facility] [address] [place] [address] HCUL86.8 %Low33.0-37.0[facility] HospitalComment on above: Performed By: #### PGLU #### [facility] [address] [place] [address] RTG (RBC) [Entitic vol]94.9 fLCritically high79.4-94.8[facility] HospitalComment on above:Performed By: #### PGLU #### [facility] [address] [place] [address] Zbglexciq (Bld) [#/Vol]0.5 10*3/uLNormal0.2-0.8[facility] HospitalComment on above:Performed By: #### PGLU #### [facility] [address] [place] [address] Gssxdeyqf/100 WBC (Bld)9.3 %[facility] Comment on above:Performed By: #### PGLU #### [facility] [address] [place] [address] Nkxxttcxlzv (Bld) [#/Vol]3.4 10*3/uLNormal1.4-6.5[facility] HospitalComment on above:Performed By: #### PGLU #### [facility] [address] [place] [address] Gdigrgmpmwy/100 WBC (Bld)66.7 %[facility] Comment on above:Performed By: #### PGLU #### [facility] [address] [place] [address] Hefrakdht (Bld) [#/Vol]374 10*3/xMAeiqsd864-814XdomxGunnison Valley HospitalComment on above:Performed By: #### PGLU #### [facility] [address] [place] [address] BZA (Bld) [#/Vol]2.55 10*6/uLLow4.20-5.40[facility] HospitalComment on above:Performed By: #### PGLU #### [facility] [address] [place] [address] QRY (Bld) [#/Vol]5.1 10*3/uLNormal4.8-10.8[facility] HospitalComment on above:Performed By: #### PGLU #### [facility] [address] [place] [address] RWVO Glucoseon 84-51-7689Dgaevmk [Mass/Vol]479 mg/dLCritically high 70-[address] [place], [place] [address]Comment on above:Performed By: #### PGLU #### [facility] [address] [place] [address] [facility] Medical CenterComment on above:Result Comment: Sliding ScalePerformed By: #### PGLU #### [facility] [address] [address] Iejuglw [Mass/Vol]581 mg/dLCritically tdxq98-73Xcalh[address] [place], [place] [address]Comment on above:Performed By: #### PGLU #### [facility] [address] [place] [address] [facility] Medical CenterComment on above:Result Comment: Notified RN or MDPerformed By: #### PGLU #### [facility] [address] [place] [address] Zbcrdwq [Mass/Vol]140 mg/dLCritically pnxe31-20Bngch[address] [place], [place] [address]Comment on above:Performed By: #### PGLU #### [facility] [address] [place] [address] [facility] CenterComment on above:Performed By: #### PGLU #### [facility] [address] [place] [address] Nwynhzz [Mass/Vol]224 mg/dLCritically jngy74-77BmwqvUCHealth Highlands Ranch HospitalComment on above:Performed By: #### PGLU #### [facility] [address] [place] [address] TTA Performed onREGIONS HOSPITALU-Gunnison Valley HospitalComment on above:Performed By: #### PGLU #### [facility] [address] [place] [address] Whnojku [Mass/Vol]97 mg/xSZifirm70-17Znduj[address] [place] [address] Comment on above:Performed By: #### PGLU #### [facility] [address] [place] [address] MUY Performed onREGIONS HOSPITALU-Gunnison Valley HospitalComment on above:Performed By: #### PGLU #### [facility] [address] [place] [address] XOWS Glucoseon 34-00-5721Hvhsgyb [Mass/Vol]188 mg/dLCritically high 70-[address] [place], [place] [address]Comment on above:Performed By: #### PGLU #### [facility] [address] [place] [address] ZDN Performed onREGIONS HOSPITALU-Gunnison Valley HospitalComment on above:Performed By: #### PGLU #### [facility] [address] [place] [address] Gytaztg [Mass/Vol]163 mg/dLCritically lwbv59-75Vffsm[address] [place], [place] [address]Comment on above:Performed By: #### PGLU #### [facility] [address] [place] [address] AGQ Performed onREGIONS HOSPITALUPoudre Valley HospitalComment on above:Performed By: #### PGLU #### [facility] [address] [place] [address] Bvypegi [Mass/Vol]139 mg/dLCritically ivpp57-64McoynUCHealth Highlands Ranch HospitalComment on above:Performed By: #### PGLU #### [facility] [address] [place] [address] QWH Performed onREGIONS HOSPITALUPoudre Valley HospitalComment on above:Performed By: #### PGLU #### [facility] [address] [place] [address] Qxckxoe [Mass/Vol]90 mg/kLZtvqbr15-51Vkzxp[address] [place] [address] Comment on above:Performed By: #### PGLU #### [facility] [address] [place] [address] YLS Performed onACCU-CHEKNAdventHealth PorterComment on above:Performed By: #### PGLU #### [facility] [address] [place] [address] Crigvyiia susceptibility panel DANA (Isol)on 16-49-8604Txiuoblcp susceptibility panel Disk diffusion (KB) (Isol)ORDER#: [id number] ORDERED BY: CONCEPCIÓN WAGNER SOURCE: Urine Voided Urine COLLECTED: 08/30/24 11:14 ANTIBIOTICS AT [facility].: RECEIVED : 08/30/24 11:14 Culture, Urine FINAL 09/02/24 15:25 Performed at [place] [id number] ([phone] Proteus mirabilis >100,000 CFU/ML Identification by MALDI-TOF Enterobacter cloacae complex >100,000 CFU/ML Identification by MALDI-TOF E. cloacae complex ANTIBIOTICS DANA Interp KB ZoneKB Interp Ceftriaxone S Gentamicin <=1 S Levofloxacin 1 I Nitrofurantoin 128 R Piperacillin/Tazobactam 8 S Trimethoprim/Sulfamethoxazole <=20 S S=SUSCEPTIBLE I=INTERMEDIATE R=RESISTANT NormalGunnison Valley HospitalComment on above:Performed By: #### [id number] #### [facility] [address] [place] [address] Xhcrbkexj susceptibility panel by MICon 93-22-4480Qtkkjmpwg susceptibility panel DANA (Isol)ORDER#: [id number] ORDERED BY: CONCEPCIÓN WAGNER SOURCE: Urine Voided Urine COLLECTED: 08/30/24 11:14 ANTIBIOTICS AT [facility].: RECEIVED : 08/30/24 11:14 Culture, Urine PRELIM 09/02/24 11:41 Performed at [address] [address] ([phone] Proteus mirabilis >100,000 CFU/ML Identification by MALDI-TOF Enterobacter cloacae complex >100,000 CFU/ML Identification by MALDI-TOF E. cloacae complex ANTIBIOTICS DANA Interp Gentamicin <=1 S Levofloxacin 1 I Nitrofurantoin 128 R Piperacillin/Tazobactam 8 S Trimethoprim/Sulfamethoxazole <=20 S S=SUSCEPTIBLE I=INTERMEDIATE R=RESISTANT [facility] HospitalComment on above:Performed By: #### [id number] #### [facility] [address] [facility] [address] Kxfpxre, Urineon 02-88-3323Mgsssma, UrineORDER#: [id number] ORDERED BY: CONCEPCIÓN WAGNER SOURCE: Urine Voided Urine COLLECTED: 08/30/24 11:14 ANTIBIOTICS AT [facility].: RECEIVED : 08/30/24 11:14 Culture, Urine PRELIM 09/01/24 17:28 Performed at [address] [address] ([phone] Proteus mirabilis >100,000 CFU/ML Identification by MALDI-TOF Enterobacter cloacae complex >100,000 CFU/ML Identification by MALDI-TOFNoMedical Center of the RockiesComment on above: Performed By: #### PGLU #### [facility] [address] [facility] [id number] [phone] A1Con 84-90-3965Okaqtfy [Mass/Vol]151 mg/dLNoMedical Center of the RockiesComment on above:Order Comment: Collection has been rescheduled by JOHN at 08/29/2024 14:17 Reason:Patient not in room until around 14:45Result Comment: The ADA and AACC recommend providing the estimated average glucose result to permit better patient understanding of their HBA1c result. Performed at [facility], [address] [place] [address] .HbA1c (Bld) [Mass fraction]6.9 %Critically high4.0-6.0G[facility] Valley HospitalComment on above:Order Comment: Collection has been rescheduled by JOHN at 08/29/2024 14:17 Reason:Patient not in room until around 14:45POCT Glucoseon 44-76-0320Znvsglm [Mass/Vol]97 mg/yGVstwml95-35Yyukx[address] [place], [place] [address]Comment on above:Performed By: #### PGLU #### [facility] [address] [place] [address] [facility] Medical CenterComment on above:Performed By: #### PGLU #### [facility] [address] [place] [address] Ddwvbva [Mass/Vol]104 mg/dLCritically jvzd03-03Nieni[address] [place], [place] [address]Comment on above:Performed By: #### PGLU #### [facility] [address] [place] [address] [facility] Medical CenterComment on above:Performed By: #### PGLU #### [facility] [address] [place] [address] Cupkwoq [Mass/Vol]271 mg/dLCritically imsk97-35KmvfhUCHealth Highlands Ranch HospitalComment on above:Performed By: #### PGLU #### [facility] [address] [place] [address] [facility] Medical CenterComment on above:Performed By: #### PGLU #### [facility] [address] [place] [address] Dlyfpvw [Mass/Vol]224 mg/dLCritically egzc33-18BtxokUCHealth Highlands Ranch HospitalComment on above:Performed By: #### CBCWD #### [facility] [address] [place] [address] AQD Performed onACCU-CHEPresbyterian/St. Luke's Medical CenterComment on above:Performed By: #### CBCWD #### [facility] [address] [place] [address] Zbfwlnvgoc, reflex to microscopicon 26-09-3894Jujhtgywa Ql (U) NegativeBellevue Women's HospitalComment on above:Performed By: #### CBCWD #### [facility] [address] [place] [address] Eblaxhn (U)CLOUDYAbnSt. Anthony HospitalComment on above:Performed By: #### CBCWD #### [facility] [address] [place] [address] Zlacd (U)YellowNoalStraw/YellGunnison Valley HospitalComment on above:Performed By: #### CBCWD #### [facility] [address] [place] [address] Qjgbszu Ql (U)[facility] Comment on above:Performed By: #### CBCWD #### [facility] [address] [place] [address] Qhevrxplue Ql (U)[facility] Comment on above:Performed By: #### CBCWD #### [facility] [address] [place] [address] Sdmwhxv Ql (U)[facility] Comment on above:Performed By: #### CBCWD #### [facility] [address] [place] [address] Pwbzhlgen esterase Test strip Ql (U)MODERATEAbnoUCHealth Greeley HospitalComment on above:Performed By: #### CBCWD #### [facility] [address] [place] [address] Uwyxlzg Ql (U)NegativeNormalNegUCHealth Greeley Hospital Comment on above:Performed By: #### CBCWD #### [facility] [address] [place] [address] yO (U)7.5 [pH]Normal5.0-9.0[facility] HospitalComment on above:Performed By: #### CBCWD #### [facility] [address] [place] [address] Hsobvqg Ql (U)TRACEAbnormalNegUCHealth Greeley Hospital Comment on above:Performed By: #### CBCWD #### [facility] [address] [place] [address] Ufumnncp gravity (U) [Rel density]1.223Qklrlp1.005-1.03[facility] HospitalComment on above:Performed By: #### CBCWD #### [facility] [address] [place] [address] Tuwxvsjnskyu Qn (U)0.2 {Ancelmo'U}/dLNormal< 2.0[facility] HospitalComment on above:Performed By: #### CBCWD #### [facility] [address] [place] [address] Dowxu Microscopicon 16-35-8620Swvaickd LM Nom (Urine sed)1+ Triple PhosAbnormalNone SeenGunnison Valley HospitalComment on above:Performed By: #### PGLU #### [facility] [address] [place] [address] Hydtcsbkzf cells LM Ql (Urine sed)0-2NormalGunnison Valley HospitalComment on above:Performed By: #### PGLU #### [facility] [address] [place] [address] Qeuuglc casts LM Ql (Urine sed)7-4Polvyw6-1ZajsyGunnison Valley HospitalComment on above:Performed By: #### PGLU #### [facility] [address] [place] [address] Tfren Amorphous1+NormalGunnison Valley HospitalComment on above:Performed By: #### PGLU #### [facility] [address] [place] [address] Arurf BacteriaFEWAbnormalNegativeGunnison Valley Hospital Comment on above:Performed By: #### PGLU #### [facility] [address] [place] [address] Sujht MucousPresentNormalNone SeenGunnison Valley Hospital Comment on above:Performed By: #### PGLU #### [facility] [address] [place] [address] Dqete TZF0-9Dvomak3-2ZowqaUCHealth Highlands Ranch HospitalComment on above: Performed By: #### PGLU #### [facility] [address] [place] [address] Cvqyi KSZ98-50Qjzdnusw5-8FymdtGunnison Valley HospitalComment on above:Performed By: #### PGLU #### [facility] [address] [place] [address] TCHY Miscellaneous test 1on 45-61-8142Myvcspg [id number] [facility] HospitalComment on above:Order Comment: Specimen cancelled by COURT, at 16:49 08/29/2024. DuplicatePerformed By: #### CBCWD #### [facility] [address] [place] [address] Luttqnk Lbtpbo0524940WrhsteBqdwnDenver SpringsComment on above:Performed By: #### PGLU #### [facility] [address] [place] [address] Yqrbe Metabolic Panelon 85-10-5966Qibqz gap [Moles/Vol]12 mmol/L Normal9-[address] [place], [place] [address]Comment on above:Order Comment: Collection has been rescheduled by JOHN at 08/29/2024 14:17 Reason:Patient not in room until around 14:45Performed By: #### CBCWD #### [facility] [address] [place] [address] Xooqpga [Mass/Vol]8.9 mg/dLNormal8.5-9.9[facility] HospitalComment on above:Order Comment: Collection has been rescheduled by JOHN at 08/29/2024 14:17 Reason:Patient not in room until around 14:45Performed By: #### CBCWD #### [facility] [address] [place] [address] Czcdxqxa [Moles/Vol]101 mmol/AAzecql15-002EoustGunnison Valley HospitalComment on above:Order Comment: Collection has been rescheduled by JOHN at 08/29/2024 14:17 Reason:Patient not in room until around 14:45Performed By: #### CBCWD #### [facility] [address] [place] [address] ME3 [Moles/Vol]23 mmol/ZDfxfef13-40NwazcGunnison Valley Hospital Comment on above:Order Comment: Collection has been rescheduled by JOHN at 08/29/2024 14:17 Reason:Patient not in room until around 14:45Performed By: #### CBCWD #### [facility] [address] [place] [address] Abvgdwnyjy [Mass/Vol]0.75 mg/dLNormal0.50-0.90[facility] HospitalComment on above:Order Comment: Collection has been rescheduled by JOHN at 08/29/2024 14:17 Reason:Patient not in room until around 14:45Performed By: #### CBCWD #### [facility] [address] [place] [address] RHQ>90.0Normal>60[facility] HospitalComment on above:Order Comment: Collection has been [...] renal tubular secretion.Performed By: #### CBCWD #### [facility] [address] [place] [address] Enwqiyc [Mass/Vol]106 mg/dLCritically oami76-15AyzvvUCHealth Highlands Ranch HospitalComment on above:Order Comment: Collection has been rescheduled by JOHN at 08/29/2024 14:17 Reason:Patient not in room until around 14:45 Performed By: #### CBCWD #### [facility] [address] [place] [address] Uofswnovf [Moles/Vol]4.5 mmol/LNormal3.4-4.9[facility] HospitalComment on above:Order Comment: Collection has been rescheduled by JOHN at 08/29/2024 14:17 Reason:Patient not in room until around 14:45Performed By: #### CBCWD #### [facility] [address] [place] [address] Jsbhdo [Moles/Vol]136 mmol/ZZnoiic925-071InpoxGunnison Valley HospitalComment on above:Order Comment: Collection has been rescheduled by JOHN at 08/29/2024 14:17 Reason:Patient not in room until around 14:45Performed By: #### CBCWD #### [facility] [address] [place] [address] Anso nitrogen [Mass/Vol]20 mg/dLNormal6-20[facility] HospitalComment on above:Order Comment: Collection has been rescheduled by JOHN at 08/29/2024 14:17 Reason:Patient not in room until around 14:45Performed By: #### CBCWD #### [facility] [address] [place] [address] [place] A1Con 96-14-9467Bkttscl [Mass/Vol]154 mg/dLNormDenver SpringsComment on above:Result Comment: The ADA and AACC recommend providing the estimated average glucose result to permit better patient understanding of their HBA1c result. Performed at [facility], [address] [place] [address] .HbA1c (Bld) [Mass fraction]7.0 %Critically high4.0-6.0[facility] HospitalPOCT Glucoseon 66-61-9820Bewmrab [Mass/Vol]114 mg/dL Critically tmxl93-56Nvxpu[address] [place], [place] [address]Comment on above:Performed By: #### PGLU #### [facility] [address] [place] [address] [facility] Medical CenterComment on above:Performed By: #### PGLU #### [facility] [address] [place] [address] Ettjtdl [Mass/Vol]156 mg/dLCritically bayv19-42Gjmem[address] [place], [place] [address]Comment on above:Performed By: #### CBCWD #### [facility] [address] [place] [address] [facility] Medical CenterComment on above:Performed By: #### CBCWD #### [facility] [address] [place] [address] Jpvcuwm [Mass/Vol]212 mg/dLCritically ilqr52-17Adhzj[address] [place], [place] [address]Comment on above:Performed By: #### PGLU #### [facility] [address] [place] [address] [facility] Medical CenterComment on above:Performed By: #### PGLU #### [facility] [address] [place] [address] Ioslcyr [Mass/Vol]129 mg/dLCritically glhn50-91IkrokUCHealth Highlands Ranch HospitalComment on above:Performed By: #### PGLU #### [facility] [address] [place] [address] DRG Performed onLutheran Medical CenterComment on above:Performed By: #### PGLU #### [facility] [address] [place] [address] HMHHKW HEALTH 17-19-8544AOVFGV [facility]OSPITALO ID: [id number] Author: AKOSUA RODARTE RT(R) Service: Radiology Author [...] PATIENT PRESENTS WITH AN IMPLANTABLE OR ATTACHED SUPERINTENDENT CEMETERY: No RADIOLOGY DEPARTMENT: General X-ray: Exam(s) Completed: Chest X-Ray Spine X-Ray(s): Cervical LAT Skull X-Ray PERIPHERAL IV DATA: Not applicable SIGNED BY: RT Christophe(R) August 28, 2024 2:58 PMNormalFairselect medical specialty hospital - cincinnati HospitalBas Metab 2000 Pnl SerPlon 08-28-2024 Calcium [Mass/Vol]8.9 mg/dLNormal8.5-10.2FPremier Health Miami [facility] Comment on above:Order Comment: Specimen Type: BLOOD SPECIMEN Ordering Facility: [facility] Address: [address] [place] [address]Qgdrwgqkq By: #### 62563-1 #### [facility] CLIA [id number] [place] [address] [place] OF AMERICAChloride [Moles/Vol]105 mmol/LNormal 98-107[facility] Medical CenterComment on above:Order Comment: Specimen Type: BLOOD SPECIMEN Ordering Facility: [facility] Address: [address] [place], [place] [address]Performed By: #### 48026-9 #### [facility] CLIA [id number] [address] [place] [address] [place] OF AMERICACO2 [Moles/Vol]22 mmol/IQxutbd35-10 [facility] Medical CenterComment on above:Order Comment: Specimen Type: BLOOD SPECIMEN Ordering Facility: [facility] Address: [address] [place], [place] [address]Performed By: #### 46254-1 #### [facility] CLIA [id number] [place] [address] [place] OF AMERICACreatinine [Mass/Vol]0.55 mg/dLLow 0.58-0.96[facility] Medical CenterComment on above:Order Comment: Specimen Type: BLOOD SPECIMEN Ordering Facility: [facility] Address: [address] [place], [place] [address]Performed By: #### 59084-4 #### [facility] CLIA [id number] [address] [place] [address] [place] OF AMERICAGlucose [Mass/Vol]124 mg/bJKfde20-20 [facility] Medical CenterComment on above:The [place] Diabetes Association (ADA) provides guidance for cutoff [...] diabetes.Reference: Standardsof Medical Care in Diabetes 2016, [place] [employer] Association. Diabetes Care. 2016.39(Suppl 1). Order Comment: Specimen Type: BLOOD SPECIMEN Ordering Facility: [facility] Address: [address] [place], [place] [address]Result Comment: The [place] Diabetes Association (ADA) provides guidance for cutoff [...] Standards of Medical Care in Diabetes 2016, [employer] Diabetes Association. Diabetes Care. 2016.39(Suppl 1).Performed By: #### 00886-1 #### [facility] CLIA [id number] [address] [place] [address] [place] OF AMERICAPotassium [Moles/Vol]4.2 mmol/L Normal3.7-5.1FPremier Health Miami Valley Hospital NorthComment on above:Order Comment: Specimen Type: BLOOD SPECIMEN Ordering Facility: [facility] Address: [address] [place], [place] [address]Performed By: #### 79588-6 #### [facility] CLIA [id number] [address] [place] [address] [place] AMERICASodium [Moles/Vol]137 mmol/LNormal 136-144[facility] Medical CenterComment on above:Order Comment: Specimen Type: BLOOD SPECIMEN Ordering Facility: [facility] Address: [address] [place], [place] [address]Performed By: #### 03771-2 #### [facility] CLIA [id number] [address] [place] [address] [place] AMERICAUrea nitrogen [Mass/Vol]20 mg/dL Normal7-21[facility] Medical CenterComment on above:Order Comment: Specimen Type: BLOOD SPECIMEN Ordering Facility: [facility] Address: [address] [place], [place] [address]Performed By: #### 55876-5 #### [facility] CLIA [id number] [address] [place] [address] [place] OF AMERICABasic metabolic 2000 panelon 65-84-8978Tuybszvesr and Glomerular filtration rate.predicted panel (S/P/Bld)106 mL/min/1.73m???Normal>=60FaHillcrest HospitalComment on above:Order Comment: Specimen Type: BLOOD SPECIMEN Ordering Facility: [facility] Address: [address] [place], [place] [address]Result Comment: Estimated Glomerular Filtration Rate (eGFR) is [...] not accurately reflect actual GFR.Performed By: #### 12708-2 #### [facility] CLIA [id number] [address] [place], [place] [address]CB panel Auto (Bld)on 82-31-3364ICQ (Bld) [#/Vol]7.22 10*3/uLNormal3.70-11.00[facility] CenterComment on above: Order Comment: Specimen Type: BLOOD SPECIMEN Ordering Facility: [facility] Address: [address] [place], [place] [address]Performed By: #### 04795-7 #### [facility] CLIA [id number] [address] [place], [place] [address]CNDSon 73-58-7439TYZITWN ID: [id number] Author: CARO BRADLEY MD Service: Hospital Medicine [...] left femur, unspecified fracture morphology, initial encounter ([facility]) Yes Postoperative pain Unknown Vitamin D deficiency Unknown Pain due to fracture Unknown Labile blood glucose Unknown MARLENA (acute kidney injury) Yes Bilateral edema of lower extremity Yes Non healing left heel wound Yes Hydrocephalus ([facility]) Yes Insulin pump in place Yes ABLA (acute blood loss anemia) Yes 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 She presents with a fall from wheelchair, and is admitted with left distal femur fracture with partial impaction. # Closed fracture of distal end of left femur, unspecified fracture morphology, initial encounter ([facility]) Presented with pain at the left knee/thigh after sustaining a mechanical fall from her wheelchair. X-ray at OSH: acute transverse and oblique fractures of distal left femoral metaphysis with partial impaction of the fracture components and slight lateral displacement of distal fracture component up to 6 mm. Transferred to [facility] for orthopedic evaluation. Left lower extremity is [...] hydrocephalus as a result. Initially had the PSYCH NURSE shunt which was replaced with a VA [...] by neurosurgery team after MRI # Asthma (HCC) Stable, physical examination showing good bilateral air entry without added sounds, patient maintaining O2 sat at target on room air. Plan: - Preoperative chest x-ray - Incentive spirometry # Bilateral edema of lower extremity # Essential hypertension # Palpitations Plan: - Hold [employer] ARCHITECT lisinopril will resume after surgery when BP will allow - Hold [employer]CH[employer] bumetanide resume after surgery on discharge - (more content not included)...[facility] 08-28-2024 CONSULT [facility] ID: [id number] Author: VERONICA RODRIGUEZ MD Service: Infectious Disease [...] had [facility] shunt placement on 10/15/2023, in [facility].. FALL at home--> femur fracture-- 08/23--s/p OR--Daryl [...] . [facility] reviewed. brain-mri [...] heard. Abdomen: Soft (more content not included)...NormalSaint [facility]'S Medical Center Erythrocyte distribution width [Ratio] by Automated counton 08-28-2024 Erythrocyte distribution width (RBC) [Ratio]15.0 %Ptorqi18.5-15.0[facility] Medical CenterComment on above:Order Comment: Specimen Type: BLOOD SPECIMEN Ordering Facility: [facility] Address: [address] [place], [place] [address]Performed By: #### 32496-8 #### [facility] CLIA [id number] [address] [place] [address] [place] OF AMERICAErythrocytes [#/volume] in Blood by Automated counton 77-68-4183HRK (Bld) [#/Vol]2.76 10*6/uLLow3.90-5.20[facility] Medical CenterComment on above:Order Comment: Specimen Type: BLOOD SPECIMEN Ordering Facility: [facility] Address: [address] [place], [place] [address]Performed By: #### 36290-9 #### [facility] CLIA [id number] [address] [place] [address] [place] OF AMERICAHematocrit [Volume Fraction] of Blood by Automated counton 59-94-7739Dgtrewpcqb (Bld) [Volume fraction]25.4 %Low 36.0-46.0[facility] Medical CenterComment on above:Order Comment: Specimen Type: BLOOD SPECIMEN Ordering Facility: [facility] Address: [address] [place], [place] [address]Performed By: #### 42520-0 #### [facility] CLIA [id number] [address] [place] [address] [place] AMERICAHemoglobin [Mass/volume] in Bloodon 17-70-4270Eubzxzncmy (Bld) [Mass/Vol]8.2 g/dLLow11.5-15.5FPremier Health Miami Valley Hospital NorthComment on above:Order Comment: Specimen Type: BLOOD SPECIMEN Ordering Facility: [facility] Address: [address] [place], [place] [address]Performed By: #### 42889-5 #### [facility] CLIA [id number] [address] [place] [address] [place] [facility] CHILDREN'S HOSPITALLeukocytes [#/volume] corrected for nucleated erythrocytes in Blood by Automated counon 78-86-9122GQP corrected for nucl RBC Auto (Bld) [#/Vol]7.22 k/uL3.70-11.00[facility] MCH [Entitic mass] by Automated counton 85-39-3765MHA (RBC) [Entitic mass]29.7 jhGsccih31.0-34.0[facility] Medical CenterComment on above:Order Comment: Specimen Type: BLOOD SPECIMEN Ordering Facility: [facility] Address: [address] [place], [place] [address]Performed By: #### 76606-8 #### [facility] [place] [id number] [address] [place] [address] STATES OF [facility] MEDICAL CENTERMCHC [Mass/volume] by Automated counton 97-70-3103UAMM (RBC) [Mass/Vol]32.3 g/aOOgxuvo29.5-36.0[facility] CenterComment on above:Order Comment: Specimen Type: BLOOD SPECIMEN Ordering Facility: [facility] Address: [address] [place], [place] [address]Performed By: #### 15358-0 #### [facility] [place] [id number] [place] [address] [place] OF AMERICAMCV [Entitic volume] by Automated counton 83-29-6942XCR (RBC) [Entitic vol]92.0 rWLmuxyw80.0-100.0[facility] Medical CenterComment on above:Order Comment: Specimen Type: BLOOD SPECIMEN Ordering Facility: [facility] Address: [address] [place], [place] [address]Performed By: #### 58795-8 #### [facility] [place] [id number] [address] [address]UR[address] PROGon 22-45-9321FAQGQHW PROGHNO ID: [id number] Author: NIVIA FLORES RN Service: Nursing Author Type: Registered Nurse Type: Nursing Progress Note Filed: 08/28/2024 17:45 Note Text: Daily Note Pt given discharge paperwork and sent with all belongings. Called [facility] and gave report to oncoming RN. Pt left in her own wheelchair and transported via her Nephew's wheelchair accessible van.NormalSaint Elizabeth'S Medical CenterNo Panel Informationon 81-36-0115Dhxskhmpr GFR (CKD-EPI)106 mL/min/1.73m???>=60[facility] CenterComment on above:Estimated Glomerular Filtration Rate [...] [#/volume] in Blood by Automated count on 68-51-9095Gcqpwmefa RBC (Bld) [#/Vol]10*3/uLNormal<0.01[facility] Medical CenterComment on above:Order Comment: Specimen Type: BLOOD SPECIMEN Ordering Facility: [facility] Address: [address] [place], [place] [address]Performed By: #### 60895-0 #### [facility] [place] [id number] [address] [place] [address] [place] AMERICAPOCT Glucoseon 98-86-7330Aiyfaen [Mass/Vol]278 mg/dLCritically fgsf02-69Jmyhd [facility] Methodist HospitalComment on above:Performed By: #### CBCWD #### [facility] [address] [facility] [address] RFW Performed onREGIONS HOSPITALUPoudre Valley HospitalComment on above:Performed By: #### CBCWD #### [facility] [address] [facility] [address] Ywedbzru mean volume [Entitic volume] in Blood by Automated counton 76-90-2746Sogrdzfv mean volume (Bld) [Entitic vol]9.7 fLNormal9.0-12.7FPremier Health Miami Valley Hospital NorthComment on above:Order Comment: Specimen Type: BLOOD SPECIMEN Ordering Facility: [facility] Address: [address] [place], [place] [address]Performed By: #### 70068-0 #### [facility] CLIA [id number] [address] [place] [address] [place] AMERICAPlatelets [#/volume] in Blood by Automated counton 90-56-9581Rrhwlvgvx (Bld) [#/Vol]289 10*3/tFChzbak630-409 [facility] CenterComment on above:Order Comment: Specimen Type: BLOOD SPECIMEN Ordering Facility: [facility] Address: [address] [place], [place] [address]Performed By: #### 71245-2 #### [facility] CLIA [id number] [address] [place] [address] [place] AMERICASerum or plasma anion gap determinationon 10-75-9384Ucjuf gap [Moles/Vol]10 mmol/LNormal-15[facility] Medical CenterComment on above:Order Comment: Specimen Type: BLOOD SPECIMEN Ordering Facility: [facility] Address: [address] [place], [place] [address]Performed By: #### 25084-6 #### [facility] CLIA [id number] [address] [place] [address] [place] OF AMERICATHERAPY NTon 67-91-5960ERPDFPM NTHNO ID: [id number] Author: KATLYN ACOSTA, PT Service: Physical Therapy Author Type: Physical Therapist Type: Therapy (PT/OT/Speech/Resp) Filed: 08/28/2024 11:02 Note Text: Physical Therapy Treatment Summary SERVICE DATE: 08/28/2024 SERVICE TIME: 1036 to 1059 ROOM: [place] [address] PT 6 Clicks Score: 9 DISCHARGE RECOMMENDATIONS [...] History: T1DM cb/ DKA, communication hydrocephalus s/p PSYCH NURSE shunt (To [facility] 07/10/2022), urothelial carcinoma of the bladder s/p radical cystectomy and ileal conduit (04/2021) c/b SBO s/p ex lap, reduction of volvulus (12/2021) f/b recurrent SBO s/p ex lap, resection of necrotic bowel c/b bilateral ureteral injury and contamination of PSYCH NURSE shunt s/p reimplantation of bilateral ureters and externalization of PSYCH NURSE shunt (07/10/2023) with eventual removal of PSYCH NURSE shunt. ORIF R ankle HOME LIVING Patient [...] meal prep and laundry w/c level using anesthesiologist and critical care. Has groceries delivered. SUBJECTIVE Pt was pleasant and agreeable to PT session. THERAPY DIAGNOSIS Reduced mobility-other TREATMENT INTERVENTIONS Therapeutic Exercise (54191), Therapeutic Activity (18241) Timed Code Treatment (minutes): 23 Skilled Treatment [...] Tobar DATE: August 28, 2024 TIME: 11:02 [facility] -NBon 74-47-2814RC VA SHUNT SERIES -NB* * *Final Report* * * DATE OF EXAM: Aug 28 2024 2:59PM FVX 5623 - XR VA SHUNT SERIES -NB / PROCEDURE REASON: Check shunt settings * * * * Physician Interpretation * * * * EXAMINATION: SHUNT SERIES Exam Date/Time: 08/28/2024 2:59 PM Indication: Check shunt settings M: XCP_4 Comparison: Shunt study dated 02/09/2024, 10/15/2023, 06/20/2022 RESULT: PSYCH NURSE shunt catheter: Skull: There is right frontal [...] SHUNT. NO SIGNIFICANT INTERVAL CHANGE SINCE 02/07/2024. 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B Transcribe Date/Time: Aug 28 2024 4:31P Dictated by : JAYDEN MALHOTRA MD This examination was interpreted and the report reviewed and electronically signed by: JAYDEN MALHOTRA MD on Aug 28 2024 4:36PM EST [id number] Hospital(1,3)-V-I-AQCETErc 08-27-2024(1,3) B-D GLUCAN<31Normal<60[facility]'S Medical CenterComment on above:Order Comment: Specimen Type: BLOOD SPECIMEN Ordering Facility: [facility] Address: [address] [place], [place] [address]Performed By: #### 96951-8, 84552-4 #### [facility] CLIA [id number] [address] [place] [address] [place](1,3) B-D GLUCAN QUALNegativeNormal NegativeSaint Elizabeth'S Medical CenterComment on above:Order Comment: Specimen Type: BLOOD SPECIMEN Ordering Facility: [facility] Address: [address] [place], [place] [address]Performed By: #### 64802-5, 24984-5 #### [facility] CLIA [id number] [address] [place] [address] [place] AMERICABas Metab 2000 Pnl SerPlon 83-04-7825Nkzukhw [Mass/Vol]8.8 mg/dLNormal8.5-10.2FPremier Health Miami Valley Hospital NorthComment on above:Order Comment: Specimen Type: BLOOD SPECIMEN Ordering Facility: [facility] Address: [address] [place], [place] [address]Performed By: #### 71434-0 #### [facility] CLIA [id number] [address] [place] [address] [place] AMERICAChloride [Moles/Vol]107 mmol/LNormal 98-107[facility] Medical CenterComment on above:Order Comment: Specimen Type: BLOOD SPECIMEN Ordering Facility: [facility] Address: [address] [place], [place] [address]Performed By: #### 00501-7 #### [facility] CLIA [id number] [address] [place] [address] [place] AMERICACO2 [Moles/Vol]21 mmol/TBgl23-59 [facility] CenterComment on above:Order Comment: Specimen Type: BLOOD SPECIMEN Ordering Facility: [facility] Address: [address] [place], [place] [address]Performed By: #### 66847-8 #### [facility] CLIA [id number] [address] [place] [address] [place] AMERICACreatinine [Mass/Vol]0.52 mg/dLLow 0.58-0.96[facility] Medical CenterComment on above:Order Comment: Specimen Type: BLOOD SPECIMEN Ordering Facility: [facility] Address: [address] [place] [address] 15423Vnbfcwtiu By: #### 56694-3 #### [facility] CLIA [id number] [address] [place] [address] [place] AMERICAGlucose [Mass/Vol]193 mg/fDTbvk79-25 [facility] CenterComment on above:The [place] Diabetes Association (ADA) provides guidance for cutoff [...] diabetes.Reference: Standardsof Medical Care in Diabetes 2016, [employer] Diabetes [employer]. Diabetes Care. 2016.39(Suppl 1). Order Comment: Specimen Type: BLOOD SPECIMEN Ordering Facility: [facility] Address: [address] [place], [place] [address]Result Comment: The [employer] Diabetes Association (ADA) provides guidance for cutoff [...] Standards of Medical Care in Diabetes 2016, [employer] Diabetes Association. Diabetes Care. 2016.39(Suppl 1).Performed By: #### 15478-4 #### [facility] CLIA [id number] [address] [place] [address] [place] AMERICAPotassium [Moles/Vol]4.6 mmol/L Normal3.7-5.1FPremier Health Miami Valley Hospital NorthComment on above:Order Comment: Specimen Type: BLOOD SPECIMEN Ordering Facility: [facility] Address: [address] [place], [place] [address]Performed By: #### 81094-6 #### [facility] CLIA [id number] [address] [place] [address] [place] AMERICASodium [Moles/Vol]138 mmol/LNormal 136-144[facility] Medical CenterComment on above:Order Comment: Specimen Type: BLOOD SPECIMEN Ordering Facility: [facility] Address: [address] [place], [place] [address]Performed By: #### 44633-4 #### [facility] CLIA [id number] [place] [address] [place] AMERICAUrea nitrogen [Mass/Vol]18 mg/dL Normal7-21[facility] Medical CenterComment on above:Order Comment: Specimen Type: BLOOD SPECIMEN Ordering Facility: [facility] Address: [address] [place], [place] [address]Performed By: #### 55721-7 #### [facility] CLIA [id number] [address] [place] [address] [place] AMERICABaselect specialty hospital metabolic 2000 panelon 27-85-5996Sbapxhmmdf and Glomerular filtration rate.predicted panel (S/P/Bld)108 mL/min/1.73m???Normal>=60[facility] Medical CenterComment on above:Order Comment: Specimen Type: BLOOD SPECIMEN Ordering Facility: [facility] Address: [address] [place], [place] [address]Result Comment: Estimated Glomerular Filtration Rate (eGFR) is [...] not accurately reflect actual GFR.Performed By: #### 85697-8 #### [facility] CLIA [id number] [place] [address] [place] AMERICACRITTEND[facility] panel Auto (Bld)on 15-69-7883ESM (Bld) [#/Vol]6.06 10*3/uLNormal3.70-11.00[facility] HospitalComment on above: Order Comment: Specimen Type: BLOOD SPECIMEN Ordering Facility: [facility] Address: [address] [place], [place] [address]Performed By: #### 61715-2 #### [facility] CLIA [id number] [address]CONS[address] PROGon 57-77-0358NTYCGGO PROGHNO ID: [id number] Author: VERONICA RODRIGUEZ MD Service: Infectious Disease [...] [facility], [facility].. FALL at home--> femur fracture-- 08/23--s/p [...] nontender. Bowel sounds presen (more content not included)...NormalEdward P. Boland [facility] Medical Centerl-mCncon 21-95-2703DNO [Mass/Vol]4.1 mg/dLHigh<0.9[facility]S Medical CenterComment on above:Order Comment: Specimen Type: BLOOD SPECIMEN Ordering Facility: [facility] Address: [address] [place], [place] [address]Performed By: #### 19237-9 #### [facility] [id number] [address] [place] [address] [place] AMERICAErythrocyte distribution width [Ratio] by Automated counton 79-27-2493Nhfgklefjxs distribution width (RBC) [Ratio]14.9 %Nlvqrk66.5-15.0[facility] CenterComment on above: Order Comment: Specimen Type: BLOOD SPECIMEN Ordering Facility: [facility] Address: [address] [place], [place] [address]Performed By: #### 23171-6 #### [facility] [place] [id number] [address] [place] [address] [place] AMERICAErythrocytes [#/volume] in Blood by Automated counton 77-47-0334AML (Bld) [#/Vol]2.67 10*6/uLLow3.90-5.20[facility] CenterComment on above:Order Comment: Specimen Type: BLOOD SPECIMEN Ordering Facility: [facility] Address: [address] [place], [place] [address]Performed By: #### 80592-8 #### [facility] [id number] [address] [place] [address] [place] AMERICAHematocrit [Volume Fraction] of Blood by Automated counton 85-27-1585Cozzfdrgue (Bld) [Volume fraction]24.4 %Low 36.0-46.0[facility] CenterComment on above:Order Comment: Specimen Type: BLOOD SPECIMEN Ordering Facility: [facility] Address: [address] [place], [place] [address]Performed By: #### 12879-8 #### [facility] [id number] [address] [place] [address] [place] AMERICAHemoglobin [Mass/volume] in Bloodon 04-58-0160Hpjvwzwpij (Bld) [Mass/Vol]8.1 g/dLLow11.5-15.5FPremier Health Miami Valley Hospital NorthComment on above:Order Comment: Specimen Type: BLOOD SPECIMEN Ordering Facility: [facility] Address: [address] [place], [place] [address]Performed By: #### 33109-4 #### [facility] [place] [id number] [address] [place] [address] [place] AMERICALeukocytes [#/volume] corrected for nucleated erythrocytes in Blood by Automated counon 03-52-4894PFD corrected for nucl RBC Auto (Bld) [#/Vol]6.06 k/uL3.70-11.00[facility] MCH [Entitic mass] by Automated counton 13-61-5559EPE (RBC) [Entitic mass]30.3 feSkefkv11.0-34.0[facility] Medical CenterComment on above:Order Comment: Specimen Type: BLOOD SPECIMEN Ordering Facility: [facility] Address: [address] [place], [place] [address]Performed By: #### 85747-0 #### [facility] CLIA [id number] [address] [place], [place] [address]MCHC [Mass/volume] by Automated counton 01-49-0677PNPG (RBC) [Mass/Vol]33.2 g/pEVgamol88.5-36.0[facility] CenterComment on above:Order Comment: Specimen Type: BLOOD SPECIMEN Ordering Facility: [facility] Address: [address] [place], [place] [address]Performed By: #### 30466-4 #### [facility] [place] [id number] [address] [place], [place] [address]MCV [Entitic volume] by Automated counton 57-46-3708NUI (RBC) [Entitic vol]91.4 dICjcbxu87.0-100.0[facility] CenterComment on above:Order Comment: Specimen Type: BLOOD SPECIMEN Ordering Facility: [facility] Address: [address] [place], [place] [address]Performed By: #### 83663-1 #### [facility] IA [id number] [address] [place] [address] Panel Informationon 08-27-2024 Beta-(1,3)-D-Glucan QualitativeNegativeNegativeUniversity Hospitals Tripoint Medical Center Beta-(1,3)-D-Glucan Quantitative<31 pg/mL<60[facility] CenterC- Reactive Protein, Quantitative4.1 mg/dLHigh<0.9[facility] Estimated GFR (CKD-EPI)108 mL/min/1.73m???>=60[facility] Comment on above:Estimated Glomerular Filtration Rate (eGFR) [...] erythrocytes [#/volume] in Blood by Automated counton 63-90-6345Mbzobkpnx RBC (Bld) [#/Vol]10*3/uLNormal<0.01[facility] CenterComment on above:Order Comment: Specimen Type: BLOOD SPECIMEN Ordering Facility: [facility] Address: [address] [place], [place] [address]Performed By: #### 28776-5 #### [facility] CLIA [id number] [address] [place] [address] [place] AMERICAPlatelet mean volume [Entitic volume] in Blood by Automated counton 39-85-0203Bjstjplw mean volume (Bld) [Entitic vol]9.8 fLNormal9.0-12.7FPremier Health Miami Valley Hospital NorthComment on above:Order Comment: Specimen Type: BLOOD SPECIMEN Ordering Facility: [facility] Address: [address] [place], [place] [address]Performed By: #### 42590-8 #### [facility] CLIA [id number] [address] [place] [address] [place] AMERICAPlatelets [#/volume] in Blood by Automated counton 29-25-7337Oalcezhgm (Bld) [#/Vol]236 10*3/fXVopjik231-678 [facility] CenterComment on above:Order Comment: Specimen Type: BLOOD SPECIMEN Ordering Facility: [facility] Address: [address] [place], [place] [address]Performed By: #### 15427-0 #### [facility] CLIA [id number] [address] [place] [address] [place] AMERICASerum or plasma anion gap determinationon 80-53-4171Erlmv gap [Moles/Vol]10 mmol/LNormal8-15[facility] CenterComment on above:Order Comment: Specimen Type: BLOOD SPECIMEN Ordering Facility: [facility] Address: [place], [place] [address]Performed By: #### 82444-8 #### [facility] CLIA [id number] [address] [place] [address] [place] AMERICATHERAPY NTon 68-99-4339YHTXQPS NTHNO ID: [id number] Author: KEVIN PITTS, OT/L Service: Occupational Therapy Author Type: Occupational Therapist Type: Therapy (PT/OT/Speech/Resp) Filed: 08/27/2024 13:55 Note Text: Occupational Therapy Treatment Summary SERVICE DATE: 08/27/2024 SERVICE TIME: 1243 to 1321 ROOM: [place] [address] OT 6 Clicks Score: 16 DISCHARGE RECOMMENDATIONS [...] History: T1DM cb/ DKA, communication hydrocephalus s/p PSYCH NURSE shunt (To [facility] 07/10/2022), urothelial carcinoma of the bladder s/p radical cystectomy and ileal conduit (04/2021) c/b SBO s/p ex lap, reduction of volvulus (12/2021) f/b recurrent SBO s/p ex lap, resection of necrotic bowel c/b bilateral ureteral injury and contamination of PSYCH NURSE shunt s/p reimplantation of bilateral ureters and externalization of PSYCH NURSE shunt (07/10/2023) with eventual removal of PSYCH NURSE shunt. ORIF R ankle HOME LIVING Patient [...] meal prep and laundry w/c level using anesthesiologist and critical care. Has groceries delivered. Baseline Cognition: Oriented to place, Oriented to self, Oriented to time SUBJECTIVE Patient receptive and agreeable to OT tx tasks. COGNITION Responsiveness: Alert Follows Commands: 3-step Commands THERAPY DIAGNOSIS Reduced mobility-other, Decreased activities of daily living (ADL), Unsteadiness on feet, Difficulty walking-musculoskeletal TREATMENT INTERVENTIONS Self Senior Care Management (74448) Timed Code Treatment (minutes): 38 Skilled Treatment Time (minutes): 38 TRAINING AND EDUCATION PROVIDED Bed Mobility, Discharge Planning, Functional Mobility Involving ADLs, Grooming Tasks, Positioning, Sitting Balance to Improve [place] with ADLs/Self-Care, Upper Extremity Dressing, Upper Extremity [...] Sit to Stand Transfe (more content not included)...[facility] NTHNO ID: [id number] Author: KATLYN ACOSTA, PT Service: Physical Therapy Author Type: Physical Therapist Type: Therapy (PT/OT/Speech/Resp) Filed: 08/27/2024 11:38 Note Text: Physical Therapy Treatment Summary SERVICE DATE: 08/27/2024 SERVICE TIME: 1110 to 1133 ROOM: [place] [address] PT 6 Clicks Score: 9 DISCHARGE RECOMMENDATIONS [...] History: T1DM cb/ DKA, communication hydrocephalus s/p PSYCH NURSE shunt (To [facility] 07/10/2022), urothelial carcinoma of the bladder s/p radical cystectomy and ileal conduit (04/2021) c/b SBO s/p ex lap, reduction of volvulus (12/2021) f/b recurrent SBO s/p ex lap, resection of necrotic bowel c/b bilateral ureteral injury and contamination of PSYCH NURSE shunt s/p reimplantation of bilateral ureters and externalization of PSYCH NURSE shunt (07/10/2023) with eventual removal of PSYCH NURSE shunt. ORIF R ankle HOME LIVING Patient [...] meal prep and laundry w/c level using anesthesiologist and critical care. Has groceries delivered. SUBJECTIVE Pt was pleasant and agreeable to PT session. THERAPY DIAGNOSIS Reduced mobility-other TREATMENT INTERVENTIONS Therapeutic Exercise (75672), Therapeutic Activity (42870) Timed Code Treatment (minutes): 23 Skilled Treatment [...] Tobar DATE: August 27, 2024 TIME: 11:38 [facility] 16-73-1161VFTFZB HEALTHHNO ID: [id number] Author: DION WAYNE RT(R) Service: Radiology Author Type: Technologist Type: [...] PATIENT PRESENTS WITH AN IMPLANTABLE OR ATTACHED SUPERINTENDENT CEMETERY: Yes Other codman shunt 1.5/3t conditional RADIOLOGY DEPARTMENT: MR; Exam(s) Completed: Head: Routine Brain Spine: Cervical spine. Lavender Administered: No PERIPHERAL IV DATA: Inpatient: see LDA documentation SIGNED BY: Dion Wayne RT(R) August 26, 2024 7:44 PMNormalFairview HospitalBas Metab 2000 Pnl SerPlon 08-26-2024 Calcium [Mass/Vol]8.5 mg/dLNormal8.5-10.2FPremier Health [facility] North Comment on above:Order Comment: Specimen Type: BLOOD SPECIMEN [facility] Facility[facility] Address: [address] [place], [place] [address]Performed By: #### 46221-1, 39018-4 #### [facility] CLIA [id number] [address] [place] [address] [place] AMERICAChloride [Moles/Vol]106 mmol/LNormal 98-107[facility] CenterComment on above:Order Comment: Specimen Type: BLOOD SPECIMEN Ordering Facility: [facility] Address: [address] [place], [place] [address]Performed By: #### 00352-3, 66028-0 #### [facility] CLIA [id number] [address] [place] [address] [place] AMERICACO2 [Moles/Vol]21 mmol/QGwc58-27 [facility] CenterComment on above:Order Comment: Specimen Type: BLOOD SPECIMEN Ordering Facility: [facility] Address: [address] [place], [place] [address]Performed By: #### 26586-4, 88141-6 #### [facility] CLIA [id number] [address] [place] [address] [place] AMERICACreatinine [Mass/Vol]0.56 mg/dLLow 0.58-0.96[facility] Medical CenterComment on above:Order Comment: Specimen Type: BLOOD SPECIMEN Order[facility] Facility: [facility] Address: [address] [place], [place] [address]Performed By: #### 10213-6, 44268-2 #### [facility] CLIA [id number] [address] [place] [address] [place] AMERICAGlucose [Mass/Vol]107 mg/jJCada13-49 [facility] CenterComment on above:The [place] Diabetes Association (ADA) provides guidance for cutoff [...] diabetes.Reference: Standardsof Medical Care in Diabetes 2016, [place] Diabetes Association. Diabetes Care. 2016.39(Suppl 1). Order Comment: Specimen Type: BLOOD SPECIMEN Ordering Facility[facility] Address: [address] [place], [place] [address]Result Comment: The [place] Diabetes Association (ADA) provides guidance for cutoff [...] Standards of Medical Care in Diabetes 2016, [place] Diabetes [employer]. Diabetes Care. 2016.39(Suppl 1).Performed By: #### 58542-9, 14722-4 #### [facility] CLIA [id number] [address] [place] [address] [place] AMERICAPotassium [Moles/Vol]4.3 mmol/L Normal3.7-5.1FPremier Health Miami Valley Hospital NorthComment on above:Order Comment: Specimen Type: BLOOD SPECIMEN Ordering Facility[facility] Address: [address] [place], [place] [address]Performed By: #### 46234-9, 06058-3 #### [facility] CLIA [id number] [address] [place] [id number] [place] AMERICASodium [Moles/Vol]137 mmol/LNormal 136-144[facility] CenterComment on above:Order Comment: Specimen Type: BLOOD SPECIMEN Ordering Facility[facility] Address: [address] [place], [place] [address]Performed By: #### 72217-9, 97426-1 #### [facility] CLIA [id number] [address] [place] [address] [place] AMERICAUrea nitrogen [Mass/Vol]23 mg/dLHigh 7-21[facility] CenterComment on above:Order Comment: Specimen Type: BLOOD SPECIMEN Ordering Facility[facility] Address: [address] [place], [place] [address]Performed By: #### 72629-9, 92643-5 #### [facility] CLIA [id number] [address] [place], [place] [address]Baselect [facility] hospital metabolic 2000 panelon 83-05-1003Ejbnrbohhl and Glomerular filtration rate.predicted panel (S/P/Bld)106 mL/min/1.73m???Normal>=60[facility] CenterComment on above:Order Comment: Specimen Type: BLOOD SPECIMEN Order[facility] Facility: [facility] Address: [address] [place], [place] [address]Result Comment: Estimated Glomerular Filtration Rate (eGFR) is [...] not accurately reflect actual GFR.Performed By: #### 45115-1, 60529-6 #### [facility] CLIA [id number] STATES OF [facility] panel Auto (Bld)on 05-89-4412WZA (Bld) [#/Vol]6.95 10*3/uLNormal3.70-11.00[facility] Medical CenterComment on above: Order Comment: Specimen Type: BLOOD SPECIMEN Order[facility] Facility[facility] Address: [address] [place], [place] [address]Performed By: #### 76649-2, 26411-7 #### [facility] CLIA [id number] [address] PROGon 77-00-6821AKCLGVL PROGHNO ID: [id number] Author: VERONICA RODRIGUEZ MD Service: Infectious Disease [...] [facility] on [facility], [facility].. FALL at home--> femur fracture-- 08/23--s/p [...] extremities, not a (more content not included)... NormalSaint Elizabeth'S Medical CenterErythrocyte distribution width [Ratio] by Automated count on 62-58-2501Fcfeyufobal distribution width (RBC) [Ratio]14.6 %Qdqowk63.5-15.0 [facility] CenterComment on above:Order Comment: Specimen Type: BLOOD SPECIMEN Ordering Facility[facility] Address: [address] [place], [place] [address]Performed By: #### 33997-7, 58070-9 #### [facility] SERVICESIA [id number] [address] [place] [address] [place] AMERICAErythrocytes [#/volume] in Blood by Automated counton 01-72-8078NEF (Bld) [#/Vol]2.63 10*6/uLLow3.90-5.20[facility] CenterComment on above:Order Comment: Specimen Type: BLOOD SPECIMEN Order[facility] Facility[facility] Address: [address] [place], [place] [address]Performed By: #### 86485-2, 35030-3 #### [facility] CLIA [id number] [address] [place] [address] [place] AMERICAHematocrit [Volume Fraction] of Blood by Automated counton 52-25-2547Ezqfklxdfe (Bld) [Volume fraction]23.9 %Low 36.0-46.0[facility] Medical CenterComment on above:Order Comment: Specimen Type: BLOOD SPECIMEN Ordering Facility: [facility] Address: [address] [place], [place] [address]Performed By: #### 27613-1, 21045-0 #### [facility] CLIA [id number] [address] [place] [address] [place] AMERICAHemoglobin [Mass/volume] in Bloodon 57-31-5264Ksypyuphhy (Bld) [Mass/Vol]7.7 g/dLLow11.5-15.5FPremier Health Miami Valley Hospital NorthComment on above:Order Comment: Specimen Type: BLOOD SPECIMEN Ordering Facility: [facility] Address: [address] [place], [place] [address]Performed By: #### 62191-6, 01930-5 #### [facility] CLIA [id number] [address] [place] [address] [place] AMERICALaboratory - Chemistry and Chemistry - challengeon 54-95-7219Jmsctburf Ql (U)NegativeNegativeUniversity Hospitals Tripoint Medical CenterGlucose (U) [Mass/Vol]NegativeTrace, NegativeUniversity Hospitals Tripoint Medical CenterKetones Ql (U)NegativeNegative, TraceUniversity Hospitals Tripoint Medical CenterpH (U)5.5 [pH]5.0-8.0Adams County Hospitalpecific gravity (U) [Rel density]1.0291.005-1.030[facility] Medical CenterLaboratory - Specimen informationon 95-29-6781Jsuphonidb (U)TurbidAbnormalClearFPremier Health Miami Valley Hospital NorthColor (U)YellowYellowUniversity Hospitals Tripoint Medical Center Laboratory - Urinalysison 50-89-4661Ouxfouebi esterase Test strip Ql (U)Negative Negative, 25 Giorgio/uLUniversity Hospitals Tripoint Medical CenterNitrite Ql (U)Negative NegativeUniversity Hospitals Tripoint Medical CenterProtein Ql (U)1+AbnormalTrace, Negative [facility] Medical CenterLeukocytes [#/volume] corrected for nucleated erythrocytes in Blood by Automated counon 05-13-0290HYB corrected for nucl RBC Auto (Bld) [#/Vol]6.95 k/uL3.70-11.00[facility] Medical CenterMCH [Entitic mass] by Automated counton 49-16-5013[place] (RBC) [Entitic mass]29.3 pg Abjzeh34.0-34.0[facility] Medical CenterComment on above:Order Comment: Specimen Type: BLOOD SPECIMEN Ordering Facility[facility] Address: [address] [place], [place] [address]Performed By: #### 59963-1, 25130-5 #### [facility] CLIA [id number] [address] [place] [address] [place] AMERICAMCHC [Mass/volume] by Automated counton 19-61-7476YXHL (RBC) [Mass/Vol]32.2 g/nNKkrynq29.5-36.0[facility] Medical CenterComment on above:Order Comment: Specimen Type: BLOOD SPECIMEN Order[facility] Facility[facility] Address: [address] [place], [place] [address]Performed By: #### 48998-0, 26226-7 #### [facility] CLIA [id number] [address] [place] [address] [place] AMERICAMCV [Entitic volume] by Automated counton 21-98-8207FXF (RBC) [Entitic vol]90.9 jXUhwjls37.0-100.0[facility] Medical CenterComment on above:Order Comment: Specimen Type: BLOOD SPECIMEN Ordering Facility: [facility] Address: [address] [place], [place] [address]Performed By: #### 15276-9, 43196-1 #### [facility] [id number] [address] [place] [address] [place] AMERICAMRI BRAIN WO/W IVCONon 21-89-2697DJT BRAIN WO/W IVCON* * *Final Report* * * DATE OF EXAM: Aug 26 2024 8:04PM ALAINA 0295 - MRI BRAIN WO/W IVCON / [...] and signal intensity. No pathologic intradural enhancement. 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 No pathologic intradural enhancement. [employer]ed Circuit Board Assembler: [facility] Transcribe Date/Time: Aug 26 2024 8:06P Dictated by : VALERIA PATHAK MD This examination was interpreted and the report reviewed and electronically signed by: VALERIA PATHAK MD on Aug 26 2024 8:22PM EST [id number] [facility]ar[facility] Informationon 08-26-2024 Urine Occult BloodNegativeNegative, TraceUniversity Hospitals Tripoint Medical CenterUrine RBC0-3 /HPF0-3 /HPFUniversity Hospitals Tripoint Medical CenterUrine Squamous Epithelial CellsFew [HPF][facility] Medical CenterUrine UrobilinogenNormalNormal [facility] Medical CenterUrine WBC6-10 /HPFAbnormal0-5 /HPFUniversity Hospitals Tripoint Medical CenterEstimated GFR (CKD-EPI)106 mL/min/1.73m???>=60[facility] Tripoint Medical CenterComment on above:Estimated Glomerular Filtration Rate [...] [#/volume] in Blood by Automated count on 76-48-6713Yqimjqzfy RBC (Bld) [#/Vol]0.02 10*3/uLHigh<0.01University Hospitals Tripoint Medical CenterComment on above:Order Comment: Specimen Type: BLOOD SPECIMEN Ordering Facility: [facility] Address: [address] [place], [place] [address]Performed By: #### 48165-9, 86321-2 #### [facility] CLIA [id number] [address] [place] [address] [place] AMERICAPlatelet mean volume [Entitic volume] in Blood by Automated counton 14-07-7827Zhssnpqe mean volume (Bld) [Entitic vol]9.7 fLNormal9.0-12.7FPremier Health Miami Valley Hospital NorthComment on above:Order Comment: Specimen Type: BLOOD SPECIMEN [facility]ing Facility: [facility] Address: [address] [place], [place] [address]Performed By: #### 88866-7, 66985-3 #### [facility] CLIA [id number] [address] [place] [address] [place] AMERICAPlatelets [#/volume] in Blood by Automated counton 91-29-6413Iisaurtjl (Bld) [#/Vol]236 10*3/cCLuozih731-990 [facility] Medical CenterComment on above:Order Comment: Specimen Type: BLOOD SPECIMEN Ordering Facility: [facility] Address: [address] [place], [place] [address]Performed By: #### 33444-6, 50076-1 #### [facility] CLIA [id number] [address] [place] [address] [place] AMERICASerum or plasma anion gap determinationon 81-23-5714Ckbal gap [Moles/Vol]10 mmol/LNormal8-15[facility]point Medical CenterComment on above:Order Comment: Specimen Type: BLOOD SPECIMEN Ordering Facility: [facility] Address: [place], [place] [address]Performed By: #### 31981-3, 74350-2 #### [facility] CLIA [id number] [address] [place], [place] [address]THERAPY NTon 27-75-5712KSZSDGY NTHNO ID: [id number] Author: KATLYN ACOSTA, PT Service: Physical Therapy Author Type: Physical Therapist Type: Therapy (PT/OT/Speech/Resp) Filed: 08/26/2024 15:04 Note Text: PHYSICAL THERAPY MISSED VISIT SERVICE DATE: 08/26/2024 SERVICE TIME: 1452 ROOM: [place] [address] Patient not seen due to Patient Not Available. SIGNATURE: Katlyn Acosta PT PATIENT NAME: Chikis Tobar DATE: August 26, 2024 TIME: 3:04 [facility] HospitalTHER[facility] NTHNO ID: [id number] Author: DILCIA CASH OTR/L Service: Occupational Therapy Author Type: Occupational Therapist Type: Therapy (PT/OT/Speech/Resp) Filed: 08/26/2024 09:49 Note Text: Occupational Therapy Treatment Summary SERVICE DATE: 08/26/2024 SERVICE TIME: 0910 to 0940 ROOM: [place] [address] OT 6 Clicks Score: 16 DISCHARGE RECOMMENDATIONS [...] History: T1DM cb/ DKA, communication hydrocephalus s/p PSYCH NURSE shunt (To [facility] 07/10/2022), urothelial carcinoma of the bladder s/p radical cystectomy and ileal conduit (04/2021) c/b SBO s/p ex lap, reduction of volvulus (12/2021) f/b recurrent SBO s/p ex lap, resection of necrotic bowel c/b bilateral ureteral injury and contamination of PSYCH NURSE shunt s/p reimplantation of bilateral ureters and externalization of PSYCH NURSE shunt (07/10/2023) with eventual removal of PSYCH NURSE shunt. ORIF R ankle HOME LIVING Patient [...] meal prep and laundry w/c level using [employer] anesthesiologist and critical care. Has groceries delivered. Baseline Cognition: Oriented to place, Oriented to self, Oriented to time SUBJECTIVE It was hard to slide on the board. I usually wear pants at home. COGNITION Responsiveness: Alert Follows Commands: 3-step Commands THERAPY DIAGNOSIS Decreased activities of daily living (ADL) TREATMENT INTERVENTIONS Self Senior Care Management (04026) Timed Code Treatment (minutes): 25 Skilled Treatment Time (minutes): 25 TRAINING AND EDUCATION PROVIDED Bed Mobility, Discharge Planning, Functional Mobility Involving ADLs, Grooming Tasks, Positioning, Sitting Balance to Improve [place] with ADLs/Self-Care, Upper Extremity Dressing, Upper Extremity [...] Arevalo/Marquita PATIENT NAME: Chikis Tobar DATE: August 26, 2024 TIME: 9:49 AMNormalPine Plains HospitalUrinalysis complete panel (U)on 08-26-2024 Bilirubin Ql (U)NegativeNormalNegativePine Plains HospitalComment on above:Order Comment: Specimen Type: BLOOD SPECIMEN Ordering Facility: [facility] Address: [address] [place], [place] [address]Performed By: #### 40511-4, 40456-9 #### [facility] CLIA [id number] [address] [place] [address] [place] AMERICAClarity (Unsp spec)TurbidAbnormal ClearSaint Elizabeth'S Medical CenterComment on above:Order Comment: Specimen Type: BLOOD SPECIMEN Ordering Facility: [facility] Address: [address] [place], [place] [address]Performed By: #### 77951-9, 42268-2 #### [facility] CLIA [id number] [address] [place] [address] [place] AMERICAColor (U)YellowNormalYellowPine Plains HospitalComment on above:Order Comment: Specimen Type: BLOOD SPECIMEN Ordering Facility: [facility] Address: [address] [place], [place] [address]Performed By: #### 53604-2, 70602-6 #### [facility] CLIA [id number] [address] [place] [address] [place] AMERICAEpithelial cells LM.HPF (Urine sed) [#/Area]FewNormalFairview HospitalComment on above:Order Comment: Specimen Type: BLOOD SPECIMEN Ordering Facility: [facility] Address: [address] [place], [place] [address]Performed By: #### 66873-6, 74961-7 #### [facility] CLIA [id number] [address] [place] [address] [place] AMERICAGlucose Test strip (U) [Mass/Vol] NegativeNormalTrace, NegativeFairview HospitalComment on above:Order Comment: Specimen Type: BLOOD SPECIMEN Ordering Facility: [facility] Address: [address] [place], [place] [address]Performed By: #### 97333-6, 33993-8 #### [facility] CLIA [id number] [address] [place] [address] [place] AMERICAHemoglobin Ql (U)NegativeNormal Negative, TraceFairselect medical specialty hospital - cincinnati HospitalComment on above:Order Comment: Specimen Type: BLOOD SPECIMEN Ordering Facility: [facility] Address: [address] [place], [place] [address]Performed By: #### 45279-9, 93758-2 #### [facility] CLIA [id number] [address] [place] [address] [place] AMERICAKetones Ql (U)NegativeNormal Negative, TraceFairselect medical specialty hospital - cincinnati HospitalComment on above:Order Comment: Specimen Type: BLOOD SPECIMEN Ordering Facility: [facility] Address: [address] [place], [place] [address]Performed By: #### 91091-3, 95732-1 #### [facility] CLIA [id number] [address] [place] [address] [place] AMERICALeukocyte esterase Test strip Ql (U) NegativeNormalNegative, 25 Giorgio/uLFairview HospitalComment on above:Order Comment: Specimen Type: BLOOD SPECIMEN Ordering Facility: [facility] Address: [address] [place], [place] [address]Performed By: #### 04924-5, 02172-8 #### [facility] CLIA [id number] [address] [place] [address] [place] AMERICANitrite Ql (U)NegativeNormalNegative Pine Plains HospitalComment on above:Order Comment: Specimen Type: BLOOD SPECIMEN Ordering Facility: [facility] Address: [address] [place], [place] [address]Performed By: #### 58015-5, 61010-2 #### [facility] CLIA [id number] [address] [place] [address] STATES [facility]DREN'S HOSPITALpH (U)5.5 [pH]Normal5.0-8.0Fasaint monica's home HospitalComment on above:Order Comment: Specimen Type: BLOOD SPECIMEN Ordering Facility: [facility] Address: [address] [place], [place] [address]Performed By: #### 90522-2, 79575-2 #### [facility] CLIA [id number] [address] [place] [address] STATES [facility]EN'S HOSPITALProtein (U) [Mass/Vol]1+Abnormal Trace, NegativeFasaint monica's home HospitalComment on above:Order Comment: Specimen Type: BLOOD SPECIMEN Ordering Facility: [facility] Address: [address] [place], [place] [address]Performed By: #### 71174-3, 45197-9 #### [facility] CLIA [id number] [address] [place], [place] [address]RB LM.HPF (Urine sed) [#/Area]0-3 /HPFNormal0-3 /HPFFasaint monica's home HospitalComment on above:Order Comment: Specimen Type: BLOOD SPECIMEN Ordering Facility: [facility] Address: [address] [place], [place] [address]Performed By: #### 70106-6, 64379-2 #### [facility] CLIA [id number] [address] [place] [address] STATES OF AMERICASpecific gravity (U) [Rel density] 1.437Eauzlp8.005-1.030Fasaint monica's home HospitalComment on above:Order Comment: Specimen Type: BLOOD SPECIMEN Ordering Facility: [facility] Address: [address] [place], [place] [address]Performed By: #### 37316-8, 73164-2 #### [facility] CLIA [id number] [place] [address] [place] AMERICAUrobilinogen Ql (U)NormalNormal NormalPine Plains HospitalComment on above:Order Comment: Specimen Type: BLOOD SPECIMEN Ordering Facility: [facility] Address: [address] [place], [place] [address]Performed By: #### 65833-2, 01307-8 #### [facility] CLIA [id number] [address] [place] [address] [place] AMERICAWBC LM.HPF (Urine sed) [#/Area]6-10 /HPFAbnormal0-5 /HPFFasaint monica's home HospitalComment on above:Order Comment: Specimen Type: BLOOD SPECIMEN Ordering Facility: [facility] Address: [address] [place], [place] [address]Performed By: #### 43422-3, 55558-1 #### [facility] CLIA [id number] [address] [place] [address] [place] AMERICABacteria Wnd Culton 08-25-2024 Bacteria identified Cx Nom (Wound)ORGANISM ID: 2 Rare skin mariano GRAM STAIN: No organisms seen No Polymorphonuclear LeukocytesNoWalden Behavioral Care HospitalComment on above:Performed By: #### 6462-6 ####[facility] [id number] [place] [address] [place] AMERICABas Metab 2000 Pnl SerPlon 56-62-6487Rxhjrrd [Mass/Vol]8.3 mg/dLLow8.5-10.2FPremier Health Miami Valley Hospital NorthComment on above:Order Comment: Specimen Type: BLOOD SPECIMEN Ordering Facility[facility] Address: [address] [place], [place] [address]Performed By: #### 57868-8, 80216-7 #### [facility] CLIA [id number] [address] [place] [address] [place] AMERICAChloride [Moles/Vol]108 mmol/LHigh 98-107[facility] Medical CenterComment on above:Order Comment: Specimen Type: BLOOD SPECIMEN Ordering Facility: [facility] Address: [address] [place], [place] [address]Performed By: #### 61556-9, 98767-1 #### [facility] CLIA [id number] [address] [place] [address] [place] AMERICACO2 [Moles/Vol]18 mmol/LZfp69-92 [facility] CenterComment on above:Order Comment: Specimen Type: BLOOD SPECIMEN Ordering Facility: [facility] Address: [address] [place], [place] [address]Performed By: #### 12586-5, 90753-3 #### [facility] CLIA [id number] [address] [place] [address] [place] AMERICACreatinine [Mass/Vol]0.72 mg/dL Normal0.58-0.96[facility] Medical CenterComment on above:Order Comment: Specimen Type: BLOOD SPECIMEN Order[facility] Facility: [facility] Address: [address] [place], [place] [address]Performed By: #### 81062-2, 59855-0 #### [facility] CLIA [id number] [address] [place] [address] [place] AMERICAGlucose [Mass/Vol]273 mg/eJFzzb99-98 [facility] CenterComment on above:The [place] Diabetes Association (ADA) provides guidance for cutoff [...] diabetes.Reference: Standardsof Medical Care in Diabetes 2016, [place] Diabetes Association. Diabetes Care. 2016.39(Suppl 1). Order Comment: Specimen Type: BLOOD SPECIMEN Order[facility] Address: [address] [place], [place] [address]Result Comment: The [place] Diabetes Association (ADA) provides guidance for cutoff [...] Standards of Medical Care in Diabetes 2016, [place] Diabetes Association. Diabetes Care. 2016.39(Suppl 1).Performed By: #### 35116-5, 91034-2 #### [facility] CLIA [id number] [address] [place] [address] [place] AMERICAPotassium [Moles/Vol]4.8 mmol/L Normal3.7-5.1FPremier Health Miami Valley Hospital NorthComment on above:Order Comment: Specimen Type: BLOOD SPECIMEN Ordering Facility: [facility] Address: [address] [place], [place] [address]Performed By: #### 47144-1, 15756-3 #### [facility] CLIA [id number] [address] [place] [address] [place] AMERICASodium [Moles/Vol]135 mmol/LLow 136-144[facility] Medical CenterComment on above:Order Comment: Specimen Type: BLOOD SPECIMEN Order[facility] Address: [address] [place], [place] [address]Performed By: #### 70014-4, 16647-8 #### [facility] CLIA [id number] [address] [place] [address] [place] AMERICAUrea nitrogen [Mass/Vol]30 mg/dLHigh 7-21[facility] CenterComment on above:Order Comment: Specimen Type: BLOOD SPECIMEN [facility] Address: [address] [place], [place] [address]Performed By: #### 26139-7, 88027-2 #### [facility] CLIA [id number] [address] [place] [id number] [facility] HOSPITALBaselect specialty hospital metabolic 2000 panelon 75-79-5105Leanxiteoo and Glomerular filtration rate.predicted panel (S/P/Bld)97 mL/min/1.73m???Normal>=60FaHillcrest HospitalComment on above:Order Comment: Specimen Type: BLOOD SPECIMEN Order[facility] Facility[facility] Address: [address] [place], [place] [address]Result Comment: Estimated Glomerular Filtration Rate (eGFR) is [...] not accurately reflect actual GFR.Performed By: #### 43322-1, 72206-4 #### [facility] [place] CLIA [id number] [address] panel Auto (Bld)on 44-98-0106NUJ (Bld) [#/Vol]6.44 10*3/uLNormal3.70-11.00FaHillcrest HospitalComment on above: Order Comment: Specimen Type: BLOOD SPECIMEN [facility] Address: [address] [place], [place] [address]Performed By: #### 82920-1 #### [facility] CLIA [id number] [address] [address]CNPNon 79-84-8523EDLKJvisgplbu (FVPK1B) CHIKIS TOBAR ([id number]) 1965 F Date Time Provider Department 08/25/24 [...] Change Date Reviewed: 08/25/2024 Reviewed by: Humza Fall RN - Fully Assessed Reason for Visit: Appointment [...] injury [T14.8XXA] 10/12/2023 Pre (more content not included)...[facility] 08-25-2024 CONSULTHNO ID: [id number] Author: LUCIEN BLACKMON RN Service: ? Author [...] Pressure Injury Stage Stage 3 Site Assessment Blanca Raquel-Wound Assessment Moist Shape irregular Wound Length [...] Moisture management, Redistribution surf (more content not included)...[facility] 52-98-7078RFWCOJJ PROGHNO ID: [id number] Author: VERONICA RODRIGUEZ MD Service: Infectious Disease [...] [facility], in [facility].. FALL at home--> femur fracture-- 08/23--s/p OR--Daryl [...] 4.1 08/22/2024 Veronica Rodriguez MD 08/25/2024 8:48 [facility] ID: [id number] Author: KIM DEE MD Service: Endocrinology Author [...] 26 (was 41) Rivas Wilks M.D [facility] Internal Medicine Inpatient PROGRESS NOTE PATIENT NAME: Chikis Tobar SERVICE DATE: 08/25/2024 SERVICE TIME: 10:40 AM HOSPITAL DAY: 3 PRIMARY CARE PHYSICIAN: Kalli Simons MD CODE STATUS: Code Status: Full Code Days: [id number], please page Kim Dee MD for patient issues either through SmashChart or Group [employer]. Nights: [phone], please page [facility] night coverage pager [phone] for Team 1,2 AND3. Impression: Chikis Tobar [...] -1600 ml Labs/Data: CBC: Recent Labs 08/25/2444808/24/24 0500 08/23/2443708/22/24 2342 WBC 6.44 7.05 6.15 6.71 HB 7.6* 8.0* 9.6* 10.7* PLT 202 243 271 297 MCV 91.2 90.2 90.4 92.0 RDWCV 14.9 15.2* 15.4* 15.4* COAG: Recent Labs 08/22/24 2342 APTT 29.1 INR <0.9* BMP: Recent Labs 08/25/2444808/24/24 0500 08/23/2443708/22/24 2342 GLUC 273* 267* 147* 133* NA 135* 138 141 143 K 4.8 4.8 4.9 4.7 CHLOR 108* 106 114* 116* CO2 18* 20* 17* 16* ANION 9 12 10 11 BUN 30* 30* 44* 51* CREAT 0.72 0.79 0.65 0.67 CHEM: Recent Labs 08/25/2444808/24/24 0500 08/23/2443708/22/24 2342 CA 8.3* 8.8 9.0 9.2 MG [...] 2 mg injecti (more content not included)...NormalSaint Elizabeth'S Medical Center Erythrocyte distribution width [Ratio] by Automated counton 08-25-2024 Erythrocyte distribution width (RBC) [Ratio]14.9 %Gsrpfn30.5-15.0[facility] CenterComment on above:Order Comment: Specimen Type: BLOOD SPECIMEN [facility] Facility[facility] Address: [address] [place], [place] [address]Performed By: #### 89382-5 #### [facility] CLIA [id number] [address] [place] [address] [place] AMERICAErythrocytes [#/volume] in Blood by Automated counton 34-12-6887GIW (Bld) [#/Vol]2.62 10*6/uLLow3.90-5.20[facility] CenterComment on above:Order Comment: Specimen Type: BLOOD SPECIMEN [facility] Address: [address] [place], [place] [address]Performed By: #### 79271-6 #### [facility] CLIA [id number] [address] [place] [id number] [place] OF AMERICAHematocrit [Volume Fraction] of Blood by Automated counton 32-90-5198Ycuaptptrj (Bld) [Volume fraction]23.9 %Low 36.0-46.0[facility] Medical CenterComment on above:Order Comment: Specimen Type: BLOOD SPECIMEN [facility] Address: [address] [place], [place] [address]Performed By: #### 55800-4 #### [facility] IA [id number] [address] [place] [address] [place] AMERICAHemoglobin [Mass/volume] in Bloodon 23-72-9608Zlogbvnzzg (Bld) [Mass/Vol]7.6 g/dLLow11.5-15.5FPremier Health Miami Valley Hospital NorthComment on above:Order Comment: Specimen Type: BLOOD SPECIMEN [facility] Address: [address] [place], [place] [address]Performed By: #### 96715-2 #### [facility] IA [id number] [address] [place] [address] [place] AMERICALeukocytes [#/volume] corrected for nucleated erythrocytes in Blood by Automated counon 72-19-6519RBF corrected for nucl RBC Auto (Bld) [#/Vol]6.44 k/uL3.70-11.00[facility] MCH [Entitic mass] by Automated counton 75-46-1111SAW (RBC) [Entitic mass]29.0 kmIivtwg78.0-34.0[facility] CenterComment on above:Order Comment: Specimen Type: BLOOD SPECIMEN [facility] Address: [address] [place], [place] [address]Performed By: #### 69601-8 #### [facility] CLIA [id number] [address] [place], [place] [address] [place] AMERICAMCHC [Mass/volume] by Automated counton 78-68-5762IKPI (RBC) [Mass/Vol]31.8 g/qSWxugup19.5-36.0[facility] CenterComment on above:Order Comment: Specimen Type: BLOOD SPECIMEN [facility] Address: [address] [place], [place] [address]Performed By: #### 20707-4 #### [facility] CLIA [id number] [address] [place] [address] [place] AMERICAMCV [Entitic volume] by Automated counton 14-82-8236PXJ (RBC) [Entitic vol]91.2 oXTrszto69.0-100.0[facility] CenterComment on above:Order Comment: Specimen Type: BLOOD SPECIMEN Ordering Facility[facility] Address: [address] [place], [place] [address]Performed By: #### 36502-0 #### [facility] CLIA [id number] [address] [place] [address] [place] [facility] Panel Informationon 08-25-2024 Estimated GFR (CKD-EPI)97 mL/min/1.73m???>=60[facility] Comment on above:Estimated Glomerular Filtration Rate (eGFR) [...] erythrocytes [#/volume] in Blood by Automated counton 65-04-3199Vujvvebir RBC (Bld) [#/Vol]10*3/uLNormal<0.01[facility] CenterComment on above:Order Comment: Specimen Type: BLOOD SPECIMEN [facility] Address: [address] [place], [place] [address]Performed By: #### 00856-1 #### [facility] CLIA [id number] [address] [place] [address] [place] AMERICAPlatelet mean volume [Entitic volume] in Blood by Automated counton 96-91-7966Pvxdrkoq mean volume (Bld) [Entitic vol]10.0 fLNormal9.0-12.7FPremier Health Miami Valley Hospital NorthComment on above:Order Comment: Specimen Type: BLOOD SPECIMEN Order[facility] Facility[facility] Address: [address] [place], [place] [address]Performed By: #### 71172-8 #### [facility] CLIA [id number] [address] [place] [address] [place] AMERICAPlatelets [#/volume] in Blood by Automated counton 45-25-2311Kfvsykxjk (Bld) [#/Vol]202 10*3/cMWsefak573-304 [facility] CenterComment on above:Order Comment: Specimen Type: BLOOD SPECIMEN [facility] Facility[facility] Address: [address] [place], [place] [address]Performed By: #### 36595-5 #### [facility] CLIA [id number] [address] [place] [address] [place] AMERICASerum or plasma anion gap determinationon 84-99-6325Uccjv gap [Moles/Vol]9 mmol/LNormal8-15[facility] CenterComment on above:Order Comment: Specimen Type: BLOOD SPECIMEN [facility] Facility[facility] Address: [address] [place], [place] [address]Performed By: #### 09288-7, 33844-3 #### [facility] CLIA [id number] [address] [place] [address] [place] AMERICATHERAPY NTon 05-88-0010VLAQAYM NTHNO ID: [id number] Author: KATLYN ACOSTA, PT Service: Physical Therapy Author Type: Physical Therapist Type: Therapy (PT/OT/Speech/Resp) Filed: 08/25/2024 11:18 Note Text: Physical Therapy Treatment Summary SERVICE DATE: 08/25/2024 SERVICE TIME: 1030 to 1113 ROOM: [place] [address] PT 6 Clicks Score: 9 DISCHARGE RECOMMENDATIONS [...] History: T1DM cb/ DKA, communication hydrocephalus s/p PSYCH NURSE shunt (To [facility] 07/10/2022), urothelial carcinoma of the bladder s/p radical cystectomy and ileal conduit (04/2021) c/b SBO s/p ex lap, reduction of volvulus (12/2021) f/b recurrent SBO s/p ex lap, resection of necrotic bowel c/b bilateral ureteral injury and contamination of PSYCH NURSE shunt s/p reimplantation of bilateral ureters and externalization of PSYCH NURSE shunt (07/10/2023) with eventual removal of PSYCH NURSE shunt. ORIF R ankle HOME LIVING Patient [...] meal prep and laundry w/c level using anesthesiologist and critical care. Has groceries delivered. SUBJECTIVE Pt was pleasant and agreeable to PT session. THERAPY DIAGNOSIS Reduced mobility-other TREATMENT INTERVENTIONS Therapeutic Activity (19679) Timed Code Treatment (minutes): 38 Skilled Treatment [...] Tobar DATE: August 25, 2024 TIME: 11:18 [facility] NTHNO ID: [id number] Author: DILCIA CASH OTR/Marquita Service: Occupational Therapy Author Type: Occupational Therapist Type: Therapy (PT/OT/Speech/Resp) Filed: 08/25/2024 10:48 Note Text: OCCUPATIONAL THERAPY MISSED VISIT SERVICE DATE: 08/25/2024 SERVICE TIME: 1039 ROOM: [place] [address] Patient not seen due to Patient Not Available. PT working with pt. Will continue OT per POC SIGNATURE: VERO Arevalo/Marquita PATIENT NAME: Chikis Tobar DATE: August 25, 2024 TIME: 10:48 [facility] [id number] HEALTHHNO ID: [id number] Author: CINDI KIRBY Tech Service: Radiology Author Type: Therapist Phys Type: Allied Health Filed: 08/24/2024 13:33 Note [...] PATIENT PRESENTS WITH AN IMPLANTABLE OR ATTACHED SUPERINTENDENT CEMETERY: No RADIOLOGY DEPARTMENT: CT; Exam(s) Completed: Chest PERIPHERAL IV DATA: Inpatient: see LDA documentation SIGNED BY: Hazel Aguilar August 24, 2024 1:33 [facility] Metab 2000 Pnl SerPlon 08-24-2024 Calcium [Mass/Vol]8.8 mg/dLNormal8.5-10.2FPremier Health Miami Valley Hospital [facility] Comment on above:Order Comment: Specimen Type: BLOOD SPECIMENOrdering Facility: [facility] Address:[address] [place] [address] Performed By: #### 65409-7 ####[facility] LABORATORYCLIA [id number] [place] [id number] [place] AMERICAChloride [Moles/Vol]106 mmol/L Imaeup20-505QfspudypmUniversity Hospitals Tripoint Medical CenterComment on above:Order Comment: Specimen Type: BLOOD SPECIMENOrdering Facility: [facility] Address:[address] [place], [place] [address]Performed By: #### 09170-4 ####[facility] LABORATORYCLIA [id number] [place] [address] [place] AMERICACO2 [Moles/Vol]20 mmol/VFjy36-97ShetjloabUniversity Hospitals Tripoint Medical CenterComment on above:Order Comment: Specimen Type: BLOOD SPECIMENOrdering Facility: [facility] Address:[address] [place], [place] [address]Performed By: #### 50239-7 ####TOY LABORATORYCLIA [id number] [place] [address] [place] Creatinine [Mass/Vol]0.79 mg/dLNormal0.58-0.96[facility] Comment on above:Order Comment: Specimen Type: BLOOD SPECIMENOrdering Facility: [facility] Address:[address] [place] [address] Performed By: #### 58734-2 ####[facility] LABORATORYCLIA [id number] [place] [id number] [place] AMERICAGlucose [Mass/Vol]267 mg/dL Zuyo50-62ZmoyrttlhUniversity Hospitals Tripoint Medical CenterComment on above:The [place] Diabetes Association (ADA) provides guidance for cutoff [...] diabetes.Reference: Standardsof Medical Care in Diabetes 2016, [place] Diabetes Association. Diabetes Care. 2016.39(Suppl 1). Order Comment: Specimen Type: BLOOD SPECIMENOrdering Facility: [facility] Address:[address] [place], [place] [address]Result Comment: The [place] Diabetes Association (ADA) provides guidance for cutoff values for fast ing glucose and random glucose. The ADA defines [...] Standards of Medical Care in Diabetes 2016, [place] Diabetes Association. Diabetes Care. 2016.39(Suppl 1).Performed By: #### 74941-8 ####TOY LABORATORYCLIA [id number] [place] [address] [place] AMERICAPotassium [Moles/Vol]4.8 mmol/LNormal3.7-5.1FPremier Health Miami Valley Hospital NorthComment on above:Order Comment: Specimen Type: BLOOD SPECIMENOrdering Facility: [facility] Address:[address] [place] [id number] By: #### 70052-7 ####TOY LABORATORYCLIA [id number] [place] [id number] [place] AMERICASodium [Moles/Vol]138 mmol/SPlzkok328-139GlzjbgrswUniversity Hospitals Tripoint Medical CenterComment on above:Order Comment: Specimen Type: BLOOD SPECIMENOrdering Facility: [facility] Address:[address] [id number] By: #### 27702-2 ####TOY LABORATORYCLIA [id number] [place] [address] [place] AMERICAUrea nitrogen [Mass/Vol]30 mg/dLDavis Memorial Hospital7-21University Hospitals Tripoint Medical CenterComment on above:Order Comment: Specimen Type: BLOOD SPECIMENOrdering Facility: [facility] Address:[address] [place], [place] [address]Performed By: #### 28698-4 ####TOY LABORATORYCLIA [id number] [place] [id number] [facility] metabolic 2000 panelon 24-57-9525Mcujdehlcx and Glomerular filtration rate.predicted panel (S/P/Bld)87 mL/min/1.73m???Normal>=60FaHillcrest Hospital Comment on above:Order Comment: Specimen Type: BLOOD SPECIMENOrdering Facility: [facility] Address:[address] [place], [place] [address]Result Comment: Estimated Glomerular Filtration Rate (eGFR) is calculated using the 2020 CKD-EPI creatinine equation. This equation utilizes serum creatinine, sex, and age as parameters. The creatinine assay has traceable calibration to isotope dilution-mass spectrometry. Refer to KDIGO guidelines for clinical interpretation. In patients with unstable renal function, e.g. those with acute kidney injury, the eGFR may not accurately reflect actual GFR.Performed By: #### 02000-2 ####TOY LABORATORYCLIA [id number] [address] EVANS [address]ETCB panel Auto (Bld)on 34-55-3204QBV (Bld) [#/Vol] 7.05 10*3/uLNormal3.70-11.00Saint [facility]S Medical CenterComment on above:Order Comment: Specimen Type: BLOOD SPECIMEN [facility] Address: [address] [place], [place] [address]Performed By: #### 81152-7 #### [facility] CLIA [id number] [address]CONSULTon 14-77-3214OSGBQIFTDL ID: [id number] Author: ISIS JACKSON DO Service: Endocrinology Author [...] once daily.Disp: Rfl: acetaminophen (TYLENOL) 650 mg otefvfxdhtk666 mg by RECTAL route every 4 hours [...] q 6 H PRN (more content not included)...[facility] 08-24-2024 CONSULT PROGHNO ID: [id number] Author: VERONICA RODRIGUEZ MD Service: Infectious Disease [...] had [facility] shunt placement on 10/15/2023, in [facility].. FALL at home--> femur fracture-- 08/23--s/p OR--Daryl [...] 4.1 08/22/2024 Veronica Rodriguez MD 08/24/2024 8:57 [facility] ID: [id number] Author: JULIAN FIELDS MD Service: Orthopaedic Surgery [...] Fields MD [facility] PGY-4 , Pager [phone] If after 5pm or before 6am, or if urgent, please page the orthopaedic on-call resident at: [phone] for [facility] patients [phone] for [facility] patients [address] for [facility] patients [address] for [facility] patientsNormalSaint Elizabeth'S Medical CenterCT CHEST WO IVCONon 45-52-9532GQ CHEST WO IVCON* * *Final Report* * [...] lobe series 4 image 89 and another policy services representative nodule in the right middle lobe [...] in the gallbladder. Tiny left renal stone. Printed Circuit Board Assembler: SUMA Transcribe Date/Time: Aug 25 2024 8:47A Dictated by : BRADLEY MAN MD This examination was interpreted and the report reviewed and electronically signed by: BRADLEY MAN MD on Aug 25 2024 8:56AM EST [id number] Elizabeth'S Medical CenterErythrocyte distribution width [Ratio] by Automated counton 49-75-3652Bhxckxafpyz distribution width (RBC) [Ratio]15.2 %High11.5-15.0University Hospitals Tripoint Medical CenterComment on above: Order Comment: Specimen Type: BLOOD SPECIMEN [facility] Address: [address] [place], [place] [address]Performed By: #### 20214-4 #### [facility] [place] [id number] [address] [place] [address] [place] AMERICAErythrocytes [#/volume] in Blood by Automated counton 86-24-5225STA (Bld) [#/Vol]2.75 10*6/uLLow3.90-5.20[facility] Medical CenterComment on above:Order Comment: Specimen Type: BLOOD SPECIMEN [facility] Address: [address] [place], [place] [address]Performed By: #### 06405-2 #### [facility] HOSPITALIA [id number] [address] [place] [address] [place] AMERICAHematocrit [Volume Fraction] of Blood by Automated counton 95-00-0318Adkxwwfdhq (Bld) [Volume fraction]24.8 %Low 36.0-46.0[facility] Hospitals Tripoint Medical CenterComment on above:Order Comment: Specimen Type: BLOOD SPECIMEN [facility] Address: [address] [place], [place] [address]Performed By: #### 43887-3 #### TO[facility] HOSPITALIA [id number] [address] [place] [address] [place] AMERICAHemoglobin [Mass/volume] in Bloodon 80-00-2563Aqluumjuaz (Bld) [Mass/Vol]8.0 g/dLLow11.5-15.5FPremier Health Miami Valley Hospital NorthComment on above:Order Comment: Specimen Type: BLOOD SPECIMEN [facility] Address: [address] [place], [place] [address]Performed By: #### 51167-5 #### [facility] [place] [id number] [address] [place] [address] [place] AMERICALeukocytes [#/volume] corrected for nucleated erythrocytes in Blood by Automated counon 04-65-1267AQH corrected for nucl RBC Auto (Bld) [#/Vol]7.05 k/uL3.70-11.00[facility] MCH [Entitic mass] by Automated counton 30-72-0948GHF (RBC) [Entitic mass]29.1 ehEsckgm17.0-34.0[facility] Medical CenterComment on above:Order Comment: Specimen Type: BLOOD SPECIMEN [facility] Address: [address] [place], [place] [address]Performed By: #### 07070-0 #### [facility] CLIA [id number] [address] [place], [place] [address]MCHC [Mass/volume] by Automated counton 78-34-8484MWAL (RBC) [Mass/Vol]32.3 g/cKAcdoul70.5-36.0[facility] Medical CenterComment on above:Order Comment: Specimen Type: BLOOD SPECIMEN [facility] Address: [address] [place], [place] [address]Performed By: #### 29586-9 #### [facility] IA [id number] [address] [place], [place] [address]MCV [Entitic volume] by Automated counton 78-05-4644FBU (RBC) [Entitic vol]90.2 pBTinegu89.0-100.0[facility] Medical CenterComment on above:Order Comment: Specimen Type: BLOOD SPECIMEN [facility] Address: [address] [place], [place] [address]Performed By: #### 60955-5 #### [facility] IA [id number] [address] [place] [address] Panel Informationon 08-24-2024 Estimated GFR (CKD-EPI)87 mL/min/1.73m???>=60[facility] Comment on above:Estimated Glomerular Filtration Rate (eGFR) [...] erythrocytes [#/volume] in Blood by Automated counton 82-49-8500Dvminbdea RBC (Bld) [#/Vol]10*3/uLNormal<0.01[facility] Medical CenterComment on above:Order Comment: Specimen Type: BLOOD SPECIMEN [facility] Address: [address] [place], [place] [address]Performed By: #### 66107-0 #### [facility] CLIA [id number] [place] [address] [place] AMERICAPlatelet mean volume [Entitic volume] in Blood by Automated counton 42-42-9312Ikdswyug mean volume (Bld) [Entitic vol]9.6 fLNormal9.0-12.7FPremier Health Miami Valley Hospital NorthComment on above:Order Comment: Specimen Type: BLOOD SPECIMEN [facility] Address: [address] [place], [place] [address]Performed By: #### 54394-8 #### [facility] CLIA [id number] [address] [place] [address] [place] AMERICAPlatelets [#/volume] in Blood by Automated counton 42-39-2377Nyzolvfjq (Bld) [#/Vol]243 10*3/lHWdrpzn527-728 [facility] CenterComment on above:Order Comment: Specimen Type: BLOOD SPECIMEN [facility] Address: [address] [place], [place] [address]Performed By: #### 20848-2 #### [facility] CLIA [id number] [address] [place] [address] [place] AMERICASerum or plasma anion gap determinationon 03-04-8207Vrtnc gap [Moles/Vol]12 mmol/LNormal8-15[facility] Medical CenterComment on above:Order Comment: Specimen Type: BLOOD SPECIMENOrdering Facility: [facility] Address:[address] [place], [place] [address]Performed By: #### 92193-2 ####[facility] [id number] [address] STATES OF [facility] MEDICAL CENTERTHERAPY NTon 89-80-5482PPKZRZU NTHNO ID: [id number] Author: KATLYN ACOSTA, PT Service: Physical Therapy Author Type: Physical Therapist Type: Therapy (PT/OT/Speech/Resp) Filed: 08/24/2024 11:46 Note Text: Physical Therapy Evaluation Summary SERVICE DATE: 08/24/2024 SERVICE TIME: 1110 to 1138 ROOM: [place] [address] PT 6 Clicks Score: 9 DISCHARGE RECOMMENDATIONS [...] History: T1DM cb/ DKA, communication hydrocephalus s/p PSYCH NURSE shunt (To [place] 07/10/2022), urothelial carcinoma of the bladder s/p radical cystectomy and ileal conduit (04/2021) c/b SBO s/p ex lap, reduction of volvulus (12/2021) f/b recurrent SBO s/p ex lap, resection of necrotic bowel c/b bilateral ureteral injury and contamination of PSYCH NURSE shunt s/p reimplantation of bilateral ureters and externalization of PSYCH NURSE shunt (07/10/2023) with eventual removal of PSYCH NURSE shunt. ORIF R ankle HOME LIVING Patient [...] meal prep and laundry w/c level using anesthesiologist and critical care. Has groceries delivered. SUBJECTIVE Pt was pleasant and agreeable to PT session. THERAPY DIAGNOSIS Reduced mobility-other TREATMENT INTERVENTIONS Evaluation, Therapeutic Activity (95182) Timed Code Treatment (minutes): 8 Skilled Treatment [...] Tobar DATE: August 24, 2024 TIME: 11:46 [facility] ID: [id number] Author: DILCIA CASH OTR/Marquita Service: Occupational Therapy Author Type: Occupational Therapist Type: Therapy (PT/OT/Speech/Resp) Filed: 08/24/2024 08:53 Note Text: Occupational Therapy Evaluation Summary SERVICE DATE: 08/24/2024 SERVICE TIME: 0747 to 0838 ROOM: [place] [address] OT 6 Clicks Score: 15 DISCHARGE RECOMMENDATIONS [...] History: T1DM cb/ DKA, communication hydrocephalus s/p PSYCH NURSE shunt ([facility] To 07/10/2022), urothelial carcinoma of the bladder s/p radical cystectomy and ileal conduit (04/2021) c/b SBO s/p ex lap, reduction of volvulus (12/2021) f/b recurrent SBO s/p ex lap, resection of necrotic bowel c/b bilateral ureteral injury and contamination of PSYCH NURSE shunt s/p reimplantation of bilateral ureters and externalization of PSYCH NURSE shunt (07/10/2023) with eventual removal of PSYCH NURSE shunt. ORIF R ankle HOME LIVING Patient [...] meal prep and laundry w/c level using anesthesiologist and critical care. Has groceries delivered. Baseline Cognition: Oriented to place, Oriented to self, Oriented to time SUBJECTIVE I used a sliding board at home and a platform walker in therapy COGNITION Responsiveness: Alert Follows Commands: 3-step Commands THERAPY DIAGNOSIS Decreased activities of daily living (ADL) TREATMENT INTERVENTIONS Evaluation, Self Senior Care Management (91648) Timed Code Treatment (minutes): 30 Skilled Treatment Time (minutes): 45 TRAINING AND EDUCATION PROVIDED Bed Mobility, Benefits of In-Hospital Mobility, Functional Mobility Involving ADLs, Positioning, Safety/Judgment, Precautions/Restrictions, Standing Balance to Improve [place] with ADLs/Self-Care, Sitting Balance to Improve [place] with ADLs/Self-Care, Transfer - Sit to Stand [...] Arevalo PATIENT NAME: Chikis Tobar DATE: August 24, 2024 TIME: 8:53 AMNormalSaint Elizabeth'S Medical Center25([place])D3 [facility] 99-45-439305- hydroxyvitamin D3 [Mass/Vol]20.4 ng/mLLow31.0-80.0Saint [facility] Medical CenterComment on above:Order Comment: Specimen Type: BLOOD SPECIMEN [facility] Address: [address] [place], [place] [address]Result Comment: Classification of 25 [place] Vitamin D status: Deficiency/Insufficiency: < or = 30 ng/ml. Sufficiency/Optimal Levels: 31-80 ng/mL Toxicity: > 100 ng/mL. Test performed by chemiluminescent immunoassay.Performed By: #### 72649-1, 46015-2 #### [facility] CLIA [id number] [address] [place] [address] 84-34-1861IUPQMW HEALTHHNO ID: [id number] Author: SHELBI STORM RT(R) Service: Radiology Author Type: Technologist Type: [...] PATIENT PRESENTS WITH AN IMPLANTABLE OR ATTACHED SUPERINTENDENT CEMETERY: No RADIOLOGY DEPARTMENT: General X-ray: Exam(s) Completed: Chest X-Ray PERIPHERAL IV DATA: Not applicable SIGNED BY: Shelbi Storm RT(R) August 23, 2024 8:09 [facility] ID: [id number] Author: AKILA GOLD CT Service: ? Author Type: Therapist Phys Type: Allied Health Filed: 08/23/2024 08:04 Note [...] PATIENT PRESENTS WITH AN IMPLANTABLE OR ATTACHED SUPERINTENDENT CEMETERY: No RADIOLOGY DEPARTMENT: CT; Exam(s) Completed: left knee PERIPHERAL IV DATA: Not applicable SIGNED BY: SERENITY De La Garza August 23, 2024 8:03 [facility] ID: [id number] Author: CARMEN BARNES, RT(R) Service: ? Author Type: Technologist Type: [...] PATIENT PRESENTS WITH AN IMPLANTABLE OR ATTACHED SUPERINTENDENT CEMETERY: No RADIOLOGY DEPARTMENT: General X-ray: Exam(s) Completed: Lower Extremity X-Ray(s): Femur, Left and Knee, AP / LAT Left PERIPHERAL IV DATA: Not applicable SIGNED BY: RT Rocio(R) August 23, 2024 1:14 [facility] POSTPROC EVALon 85-27-6534MEWK POSTPROC EVALHNO ID: [id number] Author: BEN HERNANDEZ MD Service: Anesthesiology Author Type: Anesthesiologist Type: Anesthesia Postprocedure Evaluation Filed: 08/23/2024 15:24 Note Text: POST ANESTHESIA EVALUATION NOTE : 1965 Procedure Summary Date: 08/23/24 Room / Location: OR07 / [facility] OR Anesthesia Start: 1306 Anesthesia Stop: 1521 Procedure: INSERTION NAIL / KATHLEEN INTRAMEDULLARY OPEN [...] August 23, 2024 TIME: 3:24 PM CSN: [id number] Medical Center PRE-OPon 81-20-7372FBEZ PRE-OPHNO ID: [id number] Author: BEN HERNANDEZ MD Service: Anesthesiology Author Type: Anesthesiologist Type: Anesthesia Preprocedure Evaluation Filed: 08/23/2024 13:00 Note Text: ANESTHESIOLOGY DAY OF SURGERY NOTE : 1965 Procedure Information Date/Time: 08/23/24 1300 Procedure: INSERTION NAIL / KATHLEEN INTRAMEDULLARY OPEN REDUCTION FEMUR (Left: Leg above knee) Location: OR07 / [facility] OR Surgeons: Daryl Morejon [...] and consent discussed: yes. Patient / Responsible Constitution Party agrees to proceed: yes Patient / [...] 100 unit/mL Use (more content not included)... NormalFairview Va HospitalBa Metab 1999 Pnl SerPlon 42-97-1925Lpwfrdv [Mass/Vol] 9.0 mg/dLNormal8.5-10.2FPremier Health Miami Valley Hospital NorthComment on above:Order Comment: Specimen Type: BLOOD SPECIMEN [facility] Address: [address] [id number] By: #### 90882-8, 77164-8 #### [facility] CLIA [id number] [place] [address] [place] AMERICAChloride [Moles/Vol]114 mmol/LHigh 98-107[facility] Medical CenterComment on above:Order Comment: Specimen Type: BLOOD SPECIMEN [facility] Address: [address] [place], [place] [address]Performed By: #### 54149-9, 23496-8 #### [facility] CLIA [id number] [address] [place] [id number] [place] AMERICACO2 [Moles/Vol]17 mmol/NHad31-96 [facility] Medical CenterComment on above:Order Comment: Specimen Type: BLOOD SPECIMEN [facility] Address: [address] [place], [place] [address]Performed By: #### 27434-4, 91281-3 #### [facility] CLIA [id number] [address] [place] [address] [place] AMERICACreatinine [Mass/Vol]0.65 mg/dL Normal0.58-0.96[facility] Tri[facility] Medical CenterComment on above:Order Comment: Specimen Type: BLOOD SPECIMEN [facility] Address: [address] [place], [place] [address]Performed By: #### 22122-6, 00172-2 #### [facility] CLIA [id number] [address] [place] [address] [place] AMERICAGlucose [Mass/Vol]147 mg/iELfso72-29 [facility] Medical CenterComment on above:The [place] Diabetes Association (ADA) provides guidance for cutoff [...] diabetes.Reference: Standardsof Medical Care in Diabetes 2016, [place] Diabetes Association. Diabetes Care. 2016.39(Suppl 1). Order Comment: Specimen Type: BLOOD SPECIMEN [facility] Address: [address] [place], [place] [address]Result Comment: The [place] Diabetes Association (ADA) provides guidance for cutoff [...] Standards of Medical Care in Diabetes 2016, [place] Diabetes Association. Diabetes Care. 2016.39(Suppl 1).Performed By: #### 72952-9, 17876-6 #### [facility] CLIA [id number] [address] [place] [address] [place] AMERICAPotassium [Moles/Vol]4.9 mmol/L Normal3.7-5.1FPremier Health Miami Valley Hospital NorthComment on above:Order Comment: Specimen Type: BLOOD SPECIMEN [facility] Address: [address] [place], [place] [address]Performed By: #### 01807-9, 47808-9 #### [facility] CLIA [id number] [address] [place] [address] [place] AMERICASodium [Moles/Vol]141 mmol/LNormal 136-144[facility] Medical CenterComment on above:Order Comment: Specimen Type: BLOOD SPECIMEN [facility] Address: [address] [place], [place] [address]Performed By: #### 98432-3, 98049-5 #### [facility] CLIA [id number] [address] [place] [address] [place] AMERICAUrea nitrogen [Mass/Vol]44 mg/dLHigh 7-21[facility] Medical CenterComment on above:Order Comment: Specimen Type: BLOOD SPECIMEN [facility] Address: [address] [place], [place] [address]Performed By: #### 08493-7, 50228-8 #### [facility] CLIA [id number] [address] [place] [address] metabolic 2000 panelon 46-53-5497Jhxvtmlrkd and Glomerular filtration rate.predicted panel (S/P/Bld)102 mL/min/1.73m???Normal>=60FaBellevue Hospitalment on above:Order Comment: Specimen Type: BLOOD SPECIMEN [facility] Address: [address] [place], [place] [address]Result Comment: Estimated Glomerular Filtration Rate (eGFR) is [...] not accurately reflect actual GFR.Performed By: #### 05082-4, 07571-6 #### [facility] CLIA [id number] [address] [place] [address] panel Auto (Bld)on 04-15-1806UNZ (Bld) [#/Vol]6.15 10*3/uLNormal3.70-11.00FaHillcrest HospitalComment on above: Order Comment: Specimen Type: BLOOD SPECIMEN [facility] Address: [address] [place], [place] [address]Performed By: #### 32578-6 #### [facility] CLIA [id number] [address] [place], [place] [address]CONSULT PROGon 81-09-9970QLAMOAW PROGHNO ID: [id number] Author: VERONICA RODRIGUEZ MD Service: Infectious Disease [...] had [facility] shunt placement on 10/15/2023, in [facility].. FALL at home--> femur fracture-- 08/23--s/p OR--Daryl [...] 4.1 08/22/2024 Veronica Rodriguez MD 08/23/2024 9:01 [facility] ID: [id number] Author: JULIAN FIELDS MD Service: Orthopaedic Surgery Author Type: Resident Type: Consult Progress Note Filed: 08/23/2024 09:25 Note Text: Inpatient Progress Note Orthopaedic Surgery Assessment 59 year old female with complex history including L tibia shaft fracture (s/p IMN 10/07 Dr. 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 2. Left knee degenerative changes. Printed Circuit Board Assembler: SUMA Transcribe Date/Time: Aug 23 2024 8:49A Dictated by : DIAMOND HICKMAN MD This examination was interpreted and the report reviewed and electronically signed by: DIAMOND HICKMAN MD on Aug 23 2024 8:56AM EST [id number] Elizabeth'S Medical CenterECG COMPLETEon [id number] COMPLETEVentricular Rate : 109 BPM Atrial Rate : 109 BPM P-R Interval : 172 ms QRS Duration : 79 ms Q-T Interval : 335 ms QTC Calculation(Bazett) : 452 ms Calculated P Oklee : 58 degrees Calculated R Oklee : 18 degrees Calculated T Oklee : 22 degrees Sinus tachycardia Otherwise Normal ECG Confirmed by BETTE LOPEZ, NELLIE ([id number]) on 09/04/2024 4:11:58 PM NAME : CHIKIS TOBAR PID : [id number] : 1965 Gender : Female Race : ORD : [id number] Procedure Date : Aug 23 2024 03:50:10 Edit Date : Sep 04 2024 16:12:04 Diagnosis: Sinus tachycardia Otherwise Normal ECG Confirmed by NELLIE AMOS MD ([id number]) on 09/04/2024 4:11:58 PM Test Reason : Arrhythmia Location : 400 : FVEKG 324 Overread By : NELLIE AMOS MD Edited By : NELLIE AMOS MD Referred By : MAURILIO HUYNH Acquired by : [id number] Children's HospitalErythrocyte distribution width [Ratio] by Automated counton 51-70-2427Iqfclcmdrwd distribution width (RBC) [Ratio]15.4 %High11.5-15.0[facility] CenterComment on above: Order Comment: Specimen Type: BLOOD SPECIMEN Ordering Facility: [facility] Address: [address] [place], [place] [address]Performed By: #### 30835-5 #### [facility] CLIA [id number] [address] [place] [address] [place] OF AMERICAErythrocytes [#/volume] in Blood by Automated counton 60-02-2881PMF (Bld) [#/Vol]3.32 10*6/uLLow3.90-5.20[facility] CenterComment on above:Order Comment: Specimen Type: BLOOD SPECIMEN Ordering Facility: [facility] Address: [address] [place], [place] [address]Performed By: #### 89396-7 #### [facility] CLIA [id number] [address] [place] [address] [place] AMERICAHematocrit [Volume Fraction] of Blood by Automated counton 85-56-3281Xggtxjxxgn (Bld) [Volume fraction]30.0 %Low 36.0-46.0[facility] CenterComment on above:Order Comment: Specimen Type: BLOOD SPECIMEN Ordering Facility: [facility] Address: [address] [place], [place] [address]Performed By: #### 55596-4 #### [facility] CLIA [id number] [address] [place] [id number] [place] AMERICAHemoglobin [Mass/volume] in Bloodon 22-35-2690Hyviigifhi (Bld) [Mass/Vol]9.6 g/dLLow11.5-15.5FPremier Health Miami Valley Hospital NorthComment on above:Order Comment: Specimen Type: BLOOD SPECIMEN Ordering Facility: [facility] Address: [address] [place], [place] [address]Performed By: #### 39804-4 #### [facility] CLIA [id number] [address] [place] [id number] [place] OF AMERICALaboratory - Chemistry and Chemistry - challengeon 84-44-0188Dkckliyui Ql (U)NegativeNegativeUniversity Hospitals Tripoint Medical CenterGlucose (U) [Mass/Vol]NegativeTrace, NegativeUniversity Hospitals Tripoint Medical CenterKetones Ql (U)NegativeNegative, TraceUniversity Hospitals Tripoint Medical CenterpH (U)8.0 [pH]5.0-8.0Ad[facility] County Hospitalpecific gravity (U) [Rel density]1.0141.005-1.030[facility] CenterLaboratory - Specimen informationon 10-19-3751Zmejijqpvh (U)TurbidAbnormalClearFPremier Health Miami Valley Hospital NorthColor (U)Light YellowYellowUniversity Hospitals Tripoint Medical CenterLaboratory - Urinalysison 14-82-1405Rehycueep esterase Test strip Ql (U)75 Giorgio/uLAbnormalNegative, 25 Giorgio/uLUniversity Hospitals Tripoint Medical CenterNitrite Ql (U) 2+AbnormalNegativeUniversity Hospitals Tripoint Medical CenterProtein Ql (U)NegativeTrace, NegativeUniversity Hospitals Tripoint Medical CenterLeukocytes [#/volume] corrected for nucleated erythrocytes in Blood by Automated counon 10-16-2344ISD corrected for nucl RBC Auto (Bld) [#/Vol]6.15 k/uL3.70-11.00[facility] MCH [Entitic mass] by Automated counton 53-94-3210TCK (RBC) [Entitic mass]28.9 wnZuflsa01.0-34.0[facility] CenterComment on above:Order Comment: Specimen Type: BLOOD SPECIMEN Ordering Facility: [facility] Address: [address] [place], [place] [address]Performed By: #### 05988-8 #### [facility] [place] [id number] [address] [place] [address] [place] [facility] MED[facility] CENTERMCHC [Mass/volume] by Automated counton 23-31-0156ZBBB (RBC) [Mass/Vol]32.0 g/rMLuqvjk12.5-36.0[facility] CenterComment on above:Order Comment: Specimen Type: BLOOD SPECIMEN Ordering Facility: [facility] Address: [address] [place], [place] [address]Performed By: #### 19779-5 #### [facility] [place] [id number] [address] [place], [place] [address]MCV [Entitic volume] by Automated counton 40-04-8267SGV (RBC) [Entitic vol]90.4 bXSydcjn62.0-100.0[facility] CenterComment on above:Order Comment: Specimen Type: BLOOD SPECIMEN Ordering Facility: [facility] Address: [address] [place], [place] [address]Performed By: #### 75365-2 #### [facility] IA [id number] [address] [place] [address] Panel Informationon - Hydroxy Vitamin D Total20.4 ng/mLLow31.0-80.0[facility] Comment on above:Classification of 25 [place] Vitamin D status: Deficiency/Insufficiency: < or = 30 ng/ml.Sufficiency/Optimal Levels: 31-80 ng/mLToxicity: > 100 ng/mL. Test performed by chemiluminescent immunoassay. Estimated GFR (CKD-EPI)102 mL/min/1.73m???>=60[facility] Comment on above:Estimated Glomerular Filtration Rate (eGFR) [...] not accurately reflect actual GFR.Posaconazole Level <0.2 ug/mLLow0.7-3.9[facility] CenterComment on above:Ranges are based on trough draw at steady-state concentration.Therapeutic: >0.9 ug/mLProphylactic: >0.6 ug/mLToxic: >3.9 ug/mLThe therapeutic, prophylactic, and toxic ranges were based on the 2016 Infectious Disease Society of [place]'s (IDSA) Clinical Practice Guidelines for the Management of Aspergillosis and Candidiasis and consultation from [facility]'s Department of Infectious Disease.Reference ranges and high/low indicator flags are provided as general guidelines only. The treating physician must determine appropriate target levels/dosing based on the specific clinical situation.This test was developed, and its performance characteristics determined by the [facility] Department of Pathology and Laboratory Medicine. It has not been cleared or approved by the FDA.The [facility] Department of Pathology and Laboratory Medicine is regulated under CLIA as qualified to perform high-complexity testing. This test is used for clinical purposes. It should not beregarded as investigational or for research.Staphylococcus aureus (PCR)(LAB)Not detectedNot DetectedUniversity Hospitals Tripoint Medical CenterUrine Occult BloodNegativeNegative, TraceUniversity Hospitals Tripoint Medical CenterUrine RBC0-3 /HPF0-3 /HPFUniversity Hospitals Tripoint Medical CenterUrine Triple Phosphate CrystalsFew [HPF]AbnormalNone Seen [facility] Medical CenterUrine UrobilinogenNormalNormalUniversity Hospitals Tripoint Medical CenterUrine WBC6-10 /HPFAbnormal0-5 /HPFUniversity Hospitals Tripoint Medical CenterNucleated erythrocytes [#/volume] in Blood by Automated counton 22-60-0462Lnbrtmgby RBC (Bld) [#/Vol]10*3/uLNormal<0.01[facility] CenterComment on above:Order Comment: Specimen Type: BLOOD SPECIMEN [facility]ing [facility]: [facility] Address: [address] [place], [place] [address]Performed By: #### 29523-9 #### [facility] CLIA [id number] [place] [address] STATES OF AMERICAOPERATIVE NOon 80-14-4577RAXQFLSXN NOHNO ID: [id number] Author: DARYL MOREJON MD Service: Orthopaedic Surgery Author Type: Physician Type: Operative Report Filed: 08/23/2024 15:19 Note Text: Orthopaedic Surgery Operative Report Patient Name: Chikis Tobar Surgery Date: August 23, 2024 LOG ID: [id number] Surgeon(s) and Keypuncher(s): Surgeons and Role: * Daryl Morejon MD - Primary * Julian Fields MD - Resident - Assisting No Additional Staff I was present for all critical portions of the case and immediately available for the entirety of the case. Surgical Staff: Director Of Retail Analytics: Sherry Fritz RN Store Receiver: Khoi Charles RT(R) Scrub Person: Karina Rivera ST; Lidya Shelton ST Preop Diagnosis: left supracondylar distal femur fracture Postop Diagnosis: Same as preop diagnosis Procedure(s): 1) left femur intramedullary nail, CPT 81583 Anesthesia: General Estimated Blood Loss: 100ml Incision [...] Implant Name Type Inv. Item Serial No. Clothes Shaker L (more content not included)...NormalFaHillcrest HospitalPOSACONAZOLE, SERUMon 31-19-5345Sdxhctxmrerv [Mass/Vol]<0.2Low0.7-3.9Saint [facility]'S Medical CenterComment on above:Order Comment: Specimen Type: BLOOD SPECIMEN Ordering Facility: [facility] Address: [address] [place], [place] [address]Result Comment: Ranges are based on trough draw at steady-state concentration. Therapeutic: >0.9 ug/mL Prophylactic: >0.6 ug/mL Toxic: >3.9 ug/mL The therapeutic, prophylactic, and toxic ranges were based on the 2016 Infectious Disease Society of [place]'s (IDSA) Clinical Practice Guidelines for the Management of Aspergillosis and Candidiasis and consultation from [facility]'s Department of Infectious Disease. Reference ranges and high/low indicator flags are provided as general guidelines only. The treatingphysician must determine appropriate target levels/dosing based on the specific clinical situation. This test was developed, and its performance characteristics determined by the [facility] Department of Pathology and Laboratory Medicine. It has not been cleared or approved by the FDA. The [facility] Department of Pathology and Laboratory Medicine is regulated under CLIA as qualified to perform high-complexity testing. This test is used for clinical purposes. It should not be regarded as investigational or for research.Performed By: #### 98738-7 #### [facility] CLIA [id number] [address] [place] [address] [place] AMERICAPlatelet mean volume [Entitic volume] in Blood by Automated counton 04-29-8328Zgqwpztc mean volume (Bld) [Entitic vol]9.4 fLNormal9.0-12.7FPremier Health Miami Valley Hospital NorthComment on above:Order Comment: Specimen Type: BLOOD SPECIMEN Ordering Facility: [facility] Address: [address] [place], [place] [address]Performed By: #### 25092-4 #### [facility] CLIA [id number] [address] [place] [address] [place] AMERICAPlatelets [#/volume] in Blood by Automated counton 79-17-4061Bauloedcn (Bld) [#/Vol]271 10*3/lULgkjwp191-559 [facility] CenterComment on above:Order Comment: Specimen Type: BLOOD SPECIMEN Ordering Facility: [facility] Address: [address] [place], [place] [address]Performed By: #### 56222-3 #### [facility] CLIA [id number] [address] [place] [address] [place] OF AMERICASTAPHYLOCOCCUS AUREUS AND MRSA SCREEN, PCR, NASALon 08-23-2024S. aureus and MRSA panel LOUISE+probe (Nose)Not detectedNormalNot DetectedSaint Elizabeth'S Medical CenterComment on above:Order Comment: Specimen Type: BLOOD SPECIMEN Ordering Facility: [facility] Address: [address] [place], [place] [address]Performed By: #### 83403-2 #### [facility] CLIA [id number] [address] [place] [address] [place] AMERICASerum or plasma anion gap determinationon 41-74-3111Behes gap [Moles/Vol]10 mmol/LNormal8-15[facility] CenterComment on above:Order Comment: Specimen Type: BLOOD SPECIMEN Ordering Facility: [facility] Address: [address] [place], [place] [address]Performed By: #### 84817-1, 05979-7 #### [facility] CLIA [id number] [address] [place], [place] [id number] [place] AMERICATHERAPY NTon 52-90-8891DBYBIKM NTHNO ID: [id number] Author: AFSHIN JOSEPH OTR/L Service: Occupational Therapy Author Type: Occupational Therapist Type: Therapy (PT/OT/Speech/Resp) Filed: 08/23/2024 10:09 Note Text: OCCUPATIONAL THERAPY MISSED VISIT SERVICE DATE: 08/23/2024 SERVICE TIME: 1009 ROOM: [place] [id number] Patient not seen due to Clinical Appropriateness. Patient going to OR today. SIGNATURE: YESENIA Tong PATIENT NAME: Chikis Tobar DATE: August 23, 2024 TIME: 10:09 AMNormalFairselect medical specialty hospital - cincinnati HospitalURINALYSIS, REFLEX MICROSCOPICon 08-23-2024 Bilirubin Ql (U)NegativeNormalNegativePine Plains HospitalComment on above:Order Comment: Specimen Type: BLOOD SPECIMEN Ordering Facility: [facility] Address: [address] [place], [place] [address]Performed By: #### 07334-2 #### [facility] CLIA [id number] [address] [place] [address] [place] AMERICAClarity (Unsp spec)TurbidAbnormal ClearPine Plains HospitalComment on above:Order Comment: Specimen Type: BLOOD SPECIMEN Ordering Facility: [facility] Address: [address] [place], [place] [address]Performed By: #### 80565-0 #### [facility] CLIA [id number] [address] [place] [address] [place] AMERICAColor (U)Light YellowNormalYellow [facility] Plains HospitalComment on above:Order Comment: Specimen Type: BLOOD SPECIMEN Ordering Facility: [facility] Address: [address] [place], [place] [address]Performed By: #### 10860-9 #### [facility] CLIA [id number] [address] [place] [address] [place] AMERICAGlucose Test strip (U) [Mass/Vol] NegativeNormalTrace, NegativeFairselect medical specialty hospital - cincinnati HospitalComment on above:Order Comment: Specimen Type: BLOOD SPECIMEN Ordering Facility: [facility] Address: [address] [place], [place] [address]Performed By: #### 20217-0 #### [facility] CLIA [id number] [address] [place] [address] [place] AMERICAHemoglobin Ql (U)NegativeNormal Negative, TraceFasaint monica's home HospitalComment on above:Order Comment: Specimen Type: BLOOD SPECIMEN Ordering Facility: [facility] Address: [address] [place], [place] [address]Performed By: #### 83918-1 #### [facility] CLIA [id number] [address] [place] [address] [place] AMERICAKetones Ql (U)NegativeNormal Negative, TraceFasaint monica's home HospitalComment on above:Order Comment: Specimen Type: BLOOD SPECIMEN Order[facility] Facility: [facility] Address: [address] [place], [place] [address]Performed By: #### 34361-2 #### [facility] CLIA [id number] [address] [place] [address] [place] AMERICALeukocyte esterase Test strip Ql (U) 75 Giorgio/uLAbnormalNegative, 25 Giorgio/uLFairselect medical specialty hospital - cincinnati HospitalComment on above:Order Comment: Specimen Type: BLOOD SPECIMEN Ordering Facility: [facility] Address: [address] [place], [place] [address]Performed By: #### 03690-1 #### [facility] CLIA [id number] [address] [place] [address] [place] AMERICANitrite Ql (U)2+AbnormalNegative Pine Plains HospitalComment on above:Order Comment: Specimen Type: BLOOD SPECIMEN Ordering Facility: [facility] Address: [address] [place], [place] [address]Performed By: #### 28231-4 #### [facility] CLIA [id number] [address] [place] [address] [place] AMERICApH (U)8.0 [pH]Normal5.0-8.0P[facility] HospitalComment on above:Order Comment: Specimen Type: BLOOD SPECIMEN Ordering Facility: [facility] Address: [address] [place], [place] [address]Performed By: #### 82896-2 #### [facility] CLIA [id number] [address] [place] [address] [place] AMERICAProtein (U) [Mass/Vol]NegativeNormal Trace, NegativePine Plains HospitalComment on above:Order Comment: Specimen Type: BLOOD SPECIMEN Ordering Facility: [facility] Address: [address] [place], [place] [address]Performed By: #### 59383-2 #### [facility] CLIA [id number] [address] [place] [address] [place] AMERICARBC LM.HPF (Urine sed) [#/Area]0-3 /HPFNormal0-3 /HPFPine Plains HospitalComment on above:Order Comment: Specimen Type: BLOOD SPECIMEN Order[facility] Facility[facility] Address: [address] [place], [place] [address]Performed By: #### 02977-0 #### [facility] CLIA [id number] [address] [place] [address] [place] AMERICASpecific gravity (U) [Rel density] 1.124Nlozlh2.005-1.030P[facility] Plains HospitalComment on above:Order Comment: Specimen Type: BLOOD SPECIMEN Ordering Facility: [facility] Address: [address] [place], [place] [address]Performed By: #### 57095-2 #### [facility] CLIA [id number] [address] [place] [address] OF [facility] MEDICAL CENTERTriple phosphate crystals LM.HPF (Urine sed) [#/Area]FewAbnormalNone SeenPine Plains HospitalComment on above:Order Comment: Specimen Type: BLOOD SPECIMEN Ordering Facility[facility] Address: [address] [place], [place] [address]Performed By: #### 60971-2 #### [facility] CLIA [id number] [address] [place] [address] STATES [facility] CHILDREN'S HOSPITALUrobilinogen Ql (U)NormalNormal NormalPine Plains HospitalComment on above:Order Comment: Specimen Type: BLOOD SPECIMEN Ordering Facility: [facility] Address: [address] [place], [place] [address]Performed By: #### 19548-2 #### [facility] CLIA [id number] [address] [place] [address] [place] AMERICAWBC LM.HPF (Urine sed) [#/Area]6-10 /HPFAbnormal0-5 /HPFPine Plains HospitalComment on above:Order Comment: Specimen Type: BLOOD SPECIMEN [facility] Address: [address] [place], [place] [address]Performed By: #### 46485-5 #### [facility]ITAL[facility] [id number] [address] [place] [address] [place] AMERICAXR CHEST 1V FRONTALon 78-91-4811BN CHEST 1V FRONTAL* * *Final Report* * [...] be communicated with the ordering provider via [employer] staff message by [employer] within 2 business days of report finalization. Printed Circuit Board Assembler: SUMA Transcribe Date/Time: Aug 23 2024 8:11A Dictated by : CHERELLE GARCIA MD This examination was interpreted and the report reviewed and electronically signed by: CHERELLE GARCIA MD on Aug 23 2024 8:14AM EST [id number] ACTIONABLEInvalid Interpretation CodeFaHillcrest HospitalXR FEMUR 2V AP/LAT LTon 54-46-0450IJ FEMUR 2V AP/LAT LT* * *Final Report* [...] IMPRESSION: Please see operative note for details Printed Circuit Board Assembler: SUMA Transcribe Date/Time: Aug 23 2024 3:48P Dictated by : CHERELLE GARCIA MD This examination was interpreted and the report reviewed and electronically signed by: CHERELLE GARCIA MD on Aug 23 2024 3:51PM EST [id number] Joseph's HospitalXR FEMUR 2V AP/LAT LT* * *Final [...] of the distal femur above the condyles. Printed Circuit Board Assembler: [employer] Transcribe Date/Time: Aug 23 2024 2:15A Dictated by : JULIANA HALL MD This examination was interpreted and the report reviewed and electronically signed by: JULIANA HALL MD on Aug 23 2024 2:17AM EST [id number] HospitalXR KNEE 2V AP/LAT LTon 72-28-6541LC KNEE 2V AP/LAT LT* * *Final Report* [...] of the distal femur above the condyles. 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B Transcribe Date/Time: Aug 23 2024 2:15A Dictated by : JULIANA HALL MD This examination was interpreted and the report reviewed and electronically signed by: JULIANA HALL MD on Aug 23 2024 2:17AM EST [id number] Elizabeth'S Medical CenterActivated partial thromboplastin time (aPTT) in platelet poor plasma by coagulation aon 15-00-6222iRCU Coag (PPP) [Time]29.1 iQecftc20.0-32.4FPremier Health Miami Valley Hospital NorthComment on above: Order Comment: Specimen Type: BLOOD SPECIMEN [facility] Facility[facility] Address: [address] [place], [place] [address]Performed By: #### 00975-6, 99432-6 #### [facility] CLIA [id number] [address] [place] [address] [place] AMERICABas Metab 2000 Pnl SerPlon 57-02-2922Zgmidxe [Mass/Vol]9.2 mg/dLNormal8.5-10.2FPremier Health Miami Valley Hospital NorthComment on above:Order Comment: Specimen Type: BLOOD SPECIMEN [facility] Address: [address] [place], [place] [address]Performed By: #### 47373-6 #### [facility] CLIA [id number] [address] [place] [address] [place] AMERICAChloride [Moles/Vol]116 mmol/LHigh 98-107[facility] CenterComment on above:Order Comment: Specimen Type: BLOOD SPECIMEN [facility] Address: [address] [place], [place] [address]Performed By: #### 41699-8 #### [facility] CLIA [id number] [address] [place] [address] [place] AMERICACO2 [Moles/Vol]16 mmol/THyq95-63 [facility] CenterComment on above:Order Comment: Specimen Type: BLOOD SPECIMEN [facility] Facility[facility] Address: [address] [place], [place] [address]Performed By: #### 98600-4 #### [facility] CLIA [id number] [place] [address] [place] AMERICACreatinine [Mass/Vol]0.67 mg/dL Normal0.58-0.96[facility] Medical CenterComment on above:Order Comment: Specimen Type: BLOOD SPECIMEN Order[facility] Facility[facility] Address: [address] [place], [place] [address]Performed By: #### 05126-7 #### [facility] CLIA [id number] [place] [address] [place] AMERICAGlucose [Mass/Vol]133 mg/rOFyyl54-29 [facility] CenterComment on above:The [place] Diabetes Association (ADA) provides guidance for cutoff [...] diabetes.Reference: Standardsof Medical Care in Diabetes 2016, [place] Diabetes Association. Diabetes Care. 2016.39(Suppl 1). Order Comment: Specimen Type: BLOOD SPECIMEN Ordering Facility[facility] Address: [address] [place], [place] [address]Result Comment: The [place] Diabetes Association (ADA) provides guidance for cutoff [...] Standards of Medical Care in Diabetes 2016, [place] Diabetes Association. Diabetes Care. 2016.39(Suppl 1).Performed By: #### 12581-8 #### [facility] CLIA [id number] [address] [place] [address] [place] AMERICAPotassium [Moles/Vol]4.7 mmol/L Normal3.7-5.1FPremier Health Miami Valley Hospital NorthComment on above:Order Comment: Specimen Type: BLOOD SPECIMEN Order[facility] Facility[facility] Address: [address] [place], [place] [address]Performed By: #### 19014-8 #### [facility] CLIA [id number] [address] [place] [address] [place] AMERICASodium [Moles/Vol]143 mmol/LNormal 136-144[facility] CenterComment on above:Order Comment: Specimen Type: BLOOD SPECIMEN Ordering Facility: [facility] Address: [address] [place], [place] [address]Performed By: #### 30593-5 #### [facility] CLIA [id number] [address] [place] [address] [place] AMERICAUrea nitrogen [Mass/Vol]51 mg/dLHigh 7-21[facility] CenterComment on above:Order Comment: Specimen Type: BLOOD SPECIMEN Ordering Facility: [facility] Address: [address] [place], [place] [address]Performed By: #### 05896-3 #### [facility] CLIA [id number] [address] [place] [address] [place] AMERICABasic metabolic 2000 panelon 24-50-5187Tdvcfaewzc and Glomerular filtration rate.predicted panel (S/P/Bld)101 mL/min/1.73m???Normal>=60FaHillcrest HospitalComment on above:Order Comment: Specimen Type: BLOOD SPECIMEN Order[facility] Address: [address] [place] [place] [id number] Comment: Estimated Glomerular Filtration Rate (eGFR) is [...] not accurately reflect actual GFR.Performed By: #### 32680-6 #### [facility] CLIA [id number] [address] [place] [address] [place] OF AMERICABasophils Auto (Bld) [#/Vol]on 56-74-8778Gbjlaxpis (Bld) [#/Vol]0.1 10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 Granulocyte # (Auto)0.06 10 3/uLHigh0.00-0.03[facility] Medical CenterPlatelet mean volume Auto (Bld) [Entitic vol]on 43-80-7604Ffxylywy mean volume (Bld) [Entitic vol]Platelet mean volume [Entitic volume] in Blood by Automated count9.5-13.5FPremier Health Miami Valley Hospital NorthPlatelets Auto (Bld) [#/Vol]on 04-57-0260Ikiknbmpo (Bld) [#/Vol]Platelets [#/volume] in Blood by Automated kfgba998-465FdzyoyeljUniversity Hospitals Tripoint Medical CenterRBC Auto (Bld) [#/Vol]on 19-62-4535FID (Bld) [#/Vol]Erythrocytes [#/volume] in Blood by Automated countLow4.20-5.40Adams County Hospitalerum or plasma albumin/globulin mass ratioon 94-27-6347Mdhopuy/Globulin [Mass ratio]Serum or plasma albumin/globulin mass ratioAdams County Hospitalerum or plasma anion gap determinationon 42-19-8215Rerux gap [Moles/Vol]Serum or plasma anion gap determinationUniversity Hospitals Tripoint Medical CenterUrine Cultureon 99-51-1398Larlrybe identified Cx Nom (U)ORGANISM: Proteus mirabilis (O:PROMIR) Lydia Count >100,000 Aerobic DANA Charge (NMIC56) SUSCEPTIBILITY [...] RESISTANT TO ALL B-LACTAM DRUGS. PERFORMED BY: [place] [address] PATHOLOGIST BRAKE LINING DRILLER LANETTE KATZ M.D.[facility] Physician GroupComment on above: Performed By: #### CUU #### [address] Brooks StreetUrine cultureOrdered By: Vladimir Rios on 55-62-5044Nxrwbsde identified Cx Nom (U)AbnormalUniversity Hospitals Tripoint Medical CenterCNOVon 07-22-2024 CNOVOffice Visit ([facility] CH[facility]IS TOBAR ([id number]) 1965 F Date Time Provider Department 07/22/24 3:15 PM [facility]EL [facility] During your visit today, we recorded [...] fungal meningitis, myelitis and hydrocephalus status post PSYCH NURSE shunt placement June 2022, externalization on 06/25/2023, removal 07/10/2023 and reimplantation on 10/15/2023. Patient experienced impaired mobility and ADLs after removal of shunt and noted minimal improvement in lower extremity function post shunt reimplantation. She was evaluated in [facility] spastic[facility] initially on 12/04/2023 for paraplegia and associated severe spasticity and flexor spasms. She was discharged home from [facility] rehab facility on 02/15/2024. 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 Chikis's shunt was previously removed at [facility] on 07/10/23 following surgery for bowel obstruction [...] with a history of communicating hydrocephalus. Her PSYCH NURSE shunt was removed on 07/10/23 following laparotomy [...] in detail possible benefits and risks of PSYCH NURSE shunt adjustment. After discussion with Chikis, she [...] hydrocephalus (HCC) [G91.8] Order(s):CT BRAIN WO IVCON [[id number]] Order #: [id number] FUTURE Prescriptions as of 07/17/2024 - baclofen [...] Start ASA 81 mg (more content not included)...NormalSelect Medical Specialty [facility] Aerobic Cultureon 55-78-2663Dqibbmd CultureORGANISM: Methicillin Resis Staph Aureus (O:MRSA) Quantity [...] RESISTANT TO ALL B-LACTAM DRUGS. PERFORMED BY: [place] [address] [place] [address] PATHOLOGIST BRAKE LINING DRILLER LANETTE KATZ M.D.[facility] Physician GroupComment on above: Performed By: #### AERC #### [facility] [address] [place] [address] USAAnaerobic cultureOrdered By: Sharan Dominguez on 07-14-2024 Bacteria identified Anaer cx Nom (Unsp spec)Anaerobic cultureUniversity Hospitals Tripoint Medical CenterBacteria identified Aer cx Nom (Unsp spec)Ordered By: Sharan Dominguez on 66-45-9983Jfovsno CultureAbnormalUniversity Hospitals Tripoint Medical CenterGram stain microscopyOrdered By: Sharan Dominguez on 58-89-6890Dslvyeyqros observation Gram stain Nom (Unsp spec)Gram stain microscopyUniversity Hospitals Tripoint Medical CenterCNPN on 92-42-1569FODYBcbbwtkvb (NREUS2) CHIKIS TOBAR ([id number]) 1965 F Date Time Provider Department 07/03/24 [...] Call back number provided. Marlene Cordero PA-C [facility] 07/07/2024 9:37 AM Signed Pt returned Marlene's call and first available w/him is late July. Pt's aware Marlene's OOO this week and thought may be he could see her sooner than late July for follow up visit - [phone]. Raul Griggs PA-C 07/07/2024 1:54 PM Signed [...] self-care ability [R68.89] (more content not included)...Normal [facility] angio abd aorta runoffon 48-93-5124IH angio abd aorta runoffREGIONAL MEDICAL C[facility] Main [place] [address] [place] [address] CT Scan Report Signed Patient: Chikis Tobar MR#: [id number] : 1965 Acct:[id number] Age/Sex: 59 / F ADM Date: 07/03/24 Loc: CT Room: Type: [facility] Attending Dr: Chip Hagen MD Copies to: Chip Hagen MD Ordering Provider: Chip Hagen MD Date of Service: 07/03/24 CT/CT angio abd aorta runoff: I70.213 - Atherosclerosis of [place] arteries of extremiti... CTA abdomen, pelvis, and [...] stenosis or occlusion. Mild calcification involving the binding machine operator branches without occlusion. Left SFA demonstrates mild [...] stenosis or occlusion. Mild calcification involving the binding machine operator branches without occlusion. Right SFA demonstrates mild [...] Jones Jr., D.OGiancarlo07/03/2024 3:41 PM Dictation Location: RADIO-PC-22 Transcribed By: YAMILET 07/03/24 1541 Dictated By: Afshin Jones Jr, 07/03/24 1531 Signed By: 07/03/24 1541YiselFormerly [facility](1,3)-W-D-XWGLWQpt 07-02-2024 (1,3) B-D GLUCAN<31Normal<60[facility] on above:Order Comment: Specimen Type: BLOOD SPECIMENOrdering Facility: [facility] Address:[address] [place], [place] [address]Performed By: #### BDGLUC ####[facility] LABCLIA [id number] [facility] [id number] [place] [address] [place](1,3) B-D GLUCAN QUALNegative NormalNegativeKettering [facility] Hospital on above:Order Comment: Specimen Type: BLOOD SPECIMENOrdering Facility: [facility] Address:[address] [place], [place] [address]Performed By: #### BDGLUC ####[facility] LABCLIA [id number] [facility] HOSPITALSVFYTXOYVRT44MZYCJVQLI, [place] [address] [place] AMERICABasophils Auto (Bld) [#/Vol]on 13-33-7375Dsfwnudyt (Bld) [#/Vol]Automated basophil count<0.11[facility] Basophils/100 WBC Auto (Bld)on 12-41-3381Ggixlnkkj/100 WBC (Bld)Automated basophil %[facility] CenterBlood manual differential comment interpretation narrativeon 55-57-6189Yqhjmm differential comment Reymundo (Bld) [Interp]Blood manual differential comment interpretation narrativeUniversity Hospitals Tripoint Medical CenterCBC W Auto Differential panel (Bld)on 08-57-1258Nvzwizove (Bld) [#/Vol]0.04 10*3/uLNormal<0.11CHarrison [facility] Hospital on above: Order Comment: Specimen Type: BLOOD SPECIMENOrdering Facility: [facility] Address:[address] [place], [place] [address]Performed By: #### 28907- 8 ####[facility] LABCLIA [id number] [place] [address] [place] AMERICABasophils/100 WBC (Bld)0.6 % NormalKettering Memorial Hospital on above:Order Comment: Specimen Type: BLOOD SPECIMENOrdering Facility: [facility] Address:[address] [place], [place] [address]Performed By: #### 36965-5 ####[facility] LABCLIA [id number] [address], [place] [address] [place] AMERICADifferential cell count method Nom (Bld)AutoNormalCHarrison Community Hospital on above:Order Comment: Specimen Type: BLOOD SPECIMENOrdering Facility: [facility] Address:[address] [place], [place] [address]Performed By: #### 81292-1 ####[facility] LABIA [id number] [place] [address] [place] AMERICAEosinophils (Bld) [#/Vol]0.10 10*3/uLNormal<0.46[facility] on above:Order Comment: Specimen Type: BLOOD SPECIMENOrdering Facility: [facility] Address:[address] [place], [place] [address]Performed By: #### 18670-0 ####[facility] LABIA [id number] [address], [place] [address] [place] Eosinophils/100 WBC (Bld)1.4 %NormalKettering Memorial Hospital on above: Order Comment: Specimen Type: BLOOD SPECIMENOrdering Facility: [facility] Address:[address] [place], [place] [address]Performed By: #### 21198- 8 ####[facility] LABIA [id number] [place] [address] [place] AMERICAErythrocyte distribution width (RBC) [Ratio]14.4 %Xgowxx18.5-15.0[facility] on above: Order Comment: Specimen Type: BLOOD SPECIMENOrdering Facility: [facility] Address:[address] [place], [place] [address]Performed By: #### 86522- 8 ####[facility] LABIA [id number] [place] [address] [place] AMERICAHematocrit (Bld) [Volume fraction]40.5 %Iixzdo11.0-46.0[facility] on above:Order Comment: Specimen Type: BLOOD SPECIMENOrdering Facility: [facility] Address:[address] [place], [place] [address]Performed By: #### 86170- 8 ####[facility] [id number] [place] [address] [place] AMERICAHemoglobin (Bld) [Mass/Vol]13.0 g/lXSwpysp89.5-15.5CHarrison Community Hospital on above:Order Comment: Specimen Type: BLOOD SPECIMENOrdering Facility: [facility] Address:[address] [place], [place] [address]Performed By: #### 44394-2 ####[facility] [id number] [place] [address] [place] AMERICAImmature granulocytes (Bld) [#/Vol]0.03 10*3/uLNormal<0.10[facility] on above:Order Comment: Specimen Type: BLOOD SPECIMENOrdering Facility: [facility] Address:[address] [place], [place] [address]Performed By: #### 18457- 8 ####[facility] [id number] [place] [address] [place] AMERICAImmature granulocytes/100 WBC (Bld)0.4 %NormalKettering Memorial Hospital on above:Order Comment: Specimen Type: BLOOD SPECIMENOrdering Facility: [facility] Address:[address] [place], [place] [address]Performed By: #### 89672-4 ####[facility] LAB[facility] [id number] [place] [address] [place] AMERICALymphocytes (Bld) [#/Vol]1.12 10*3/uLNormal1.00-4.00[facility] on above:Order Comment: Specimen Type: BLOOD SPECIMENOrdering Facility: [facility] Address:[address] [place], [place] [address]Performed By: #### 42392-1 ####[facility] [id number] [place] [address] [place] AMERICALymphocytes/100 WBC (Bld)16.2 % NormalKettering Memorial Hospital on above:Order Comment: Specimen Type: BLOOD SPECIMENOrdering Facility: [facility] Address:[address] [place], [place] [address]Performed By: #### 34551-8 ####[facility] [id number] [place] [address] [place] AMERICAMCH (RBC) [Entitic mass]29.0 nnWwhohp09.0-34.0[facility] on above:Order Comment: Specimen Type: BLOOD SPECIMENOrdering Facility: [facility] Address:[address] [place], [place] [address]Performed By: #### 76340-1 ####[facility] [id number] [place] [address] [place] MCHC (RBC) [Mass/Vol]32.1 g/tNZwzsnd08.5-36.0[facility] on above:Order Comment: Specimen Type: BLOOD SPECIMENOrdering Facility: [facility] Address:[address] [place] [address] Performed By: #### 53488-9 ####[facility] LABWASHINGTON [facility] [id number] [place] [address] [place] MCV (RBC) [Entitic vol]90.2 qEFdfcmf62.0-100.0[facility] on above:Order Comment: Specimen Type: BLOOD SPECIMENOrdering Facility: [facility] Address:[address] [place] [address] Performed By: #### 64217-8 ####[facility] LABCLIA [id number] [place] [address] [place] Monocytes (Bld) [#/Vol]0.68 10*3/uLNormal<0.87[facility] on above:Order Comment: Specimen Type: BLOOD SPECIMENOrdering Facility: [facility] Address:[address] [place] [address] Performed By: #### 91315-1 ####[facility] [id number] [place] [address] [place] Monocytes/100 WBC (Bld)9.8 %NormalKettering Memorial Hospital on above: Order Comment: Specimen Type: BLOOD SPECIMENOrdering Facility: [facility] Address:[address] [place], [place] [address]Performed By: #### 19873- 8 ####[facility] LABCLIA [id number] [place] [address] [place] AMERICANeutrophils (Bld) [#/Vol]4.94 10*3/uLNormal1.45-7.50[facility] on above:Order Comment: Specimen Type: BLOOD SPECIMENOrdering Facility: [facility] Address:[address] [place], [place] [address]Performed By: #### 98806-5 ####[facility] [id number] [place] [address] [place] AMERICANeutrophils/100 WBC (Bld)71.6 % NormalKettering Memorial Hospital on above:Order Comment: Specimen Type: BLOOD SPECIMENOrdering Facility: [facility] Address:[address] [place], [place] [address]Performed By: #### 49583-8 ####[facility] LABCL[facility] [id number] [place] [address] [place] AMERICANucleated RBC (Bld) [#/Vol]10*3/uLNormal<0.01[facility] on above:Order Comment: Specimen Type: BLOOD SPECIMENOrdering Facility: [facility] Address:[address] [place], [place] [address]Performed By: #### 68190-0 ####[facility] [id number] [place] [address] [place] Nucleated RBC/100 WBC (Bld) [Ratio]0.0 /100 WBCNormalCUniversity Hospitals Elyria Medical Center Comment on above:Order Comment: Specimen Type: BLOOD SPECIMENOrdering Facility: [facility] Address:[address] [place] [address] Performed By: #### 84660-3 ####[facility] [id number] [place] [address] [place] Platelet mean volume (Bld) [Entitic vol]9.4 fLNormal9.0-12.7CHarrison Community Hospital on above:Order Comment: Specimen Type: BLOOD SPECIMENOrdering Facility: [facility] Address:[address] [place], [place] [address]Performed By: #### 81454-2 ####[facility] [id number] [place] [address] [place] Platelets (Bld) [#/Vol]324 10*3/iFBlzigs628-502HbfynuvwyKettering Memorial Hospital on above:Order Comment: Specimen Type: BLOOD SPECIMENOrdering Facility: [facility] Address:[address] [place] [address] Performed By: #### 85042-9 ####[facility] [id number] [place] [address] [facility] RBC (Bld) [#/Vol]4.49 10*6/uLNormal3.90-5.20[facility] on above:Order Comment: Specimen Type: BLOOD SPECIMENOrdering Facility: [facility] Address:[address] [place], [place] [address]Performed By: #### 68440-0 ####[facility] [id number] [address] ROSS STREETWBC (Bld) [#/Vol]6.91 10*3/uLNormal3.70-11.00[facility] on above:Order Comment: Specimen Type: BLOOD SPECIMENOrdering Facility: [facility] Address:[address] [place], [place] [address]Performed By: #### 99883-4 ####[facility] LAB[facility] [id number] [address]ETCNOVon 11-25-5202YPRATbdieg Visit (INFDMN) CHIKIS TOBAR ([id number]) 1965 F Date Time Provider Department 07/02/24 [...] was performed and she was transferred to [facility]. She was found to have DKA. A CT head showed hydrocephalus with MRI on May 29, 2022 showing multiple areas of enhancement in the anterior sabra, medulla, and in the spine at the level of C7-T3 and L1-S2. Multiple taps were performed and were unsuccessful. A PSYCH NURSE shunt was placed and patient underwent a [...] lobes (8 mm). LFTs 08/16 normal . PSYCH NURSE shunt was adjusted from 4 to 7 Posaconazole level 2.4 on 08/21/22 Developed a facial rash in September 2022, mainly the malar area, a few spots on the forehead. Dx'd with rosacea by PCP and started on metronidazole gel. She was [facility] at [facility] for her sacral area ulcer. Rx'd [...] and ambulatory, using a cane PRN. No PSYCH NURSE shunt issues. Balance has improved but still [...] Neuro exam showed abno (more content not included)...NormalSelect Medical Specialty Hospital - Columbus SouthCR SerPl-mCncon 71-18-5745JZU [Mass/Vol]mg/LNormal<0.9CUniversity Hospitals Elyria Medical Center Comment on above:Order Comment: Specimen Type: BLOOD SPECIMENOrdering Facility: [facility] Address:[address] [place] [address] Performed By: #### 1987-08, ####[facility] LABCL[facility] [id number] [address] [address] [place] Comprehensive metabolic 2000 panelon 62-80-9205Hxtszun [Mass/Vol]4.2 g/dLNormal 3.9-4.9CHarrison [facility] Hospital on above:Order Comment: Specimen Type: BLOOD SPECIMENOrdering Facility: [facility] Address:[address] [place], [place] [address]Performed By: #### 1987-08, ####[facility] LABCLIA [id number] [address] [address] [place] AMERICAALP [Catalytic activity/Vol]136 U/VCild71-656IccjygghvKettering Memorial Hospital on above:Order Comment: Specimen Type: BLOOD SPECIMENOrdering Facility: [facility] Address:[address] [place], [place] [address]Performed By: #### 1987-08, ####[facility] [id number] [address] [address] [place] AMERICAALT [Catalytic activity/Vol]11 U/LNormal7-38[facility] on above:Order Comment: Specimen Type: BLOOD SPECIMENOrdering Facility: [facility] Address:[address] [place], [place] [address]Performed By: #### 1987-08, ####[facility] [id number] [address] [address] [place] Anion gap [Moles/Vol]12 mmol/LNormal8-15[facility] on above:Order Comment: Specimen Type: BLOOD SPECIMENOrdering Facility: [facility] Address:[address] [place], [place] [address]Performed By: #### ####[facility] LABCLIA [id number] [facility]ALK [place] [id number] [place] AMERICAAST [Catalytic activity/Vol]15 U/VFssjyh57-83TzmtesjfnKettering Memorial Hospital on above:Order Comment: Specimen Type: BLOOD SPECIMENOrdering Facility: [facility] Address:[address] [place], [place] [address]Performed By: #### ####[facility] LABCLIA [id number] [facility] [place]ES[place] [id number] [place] AMERICABilirubin [Mass/Vol]0.4 mg/dLNormal0.2-1.3CHarrison [facility] Hospital on above:Order Comment: Specimen Type: BLOOD SPECIMENOrdering Facility: [facility] Address:[address] [place], [place] [address]Performed By: #### ####[facility] [id number] [place] [address] [place] AMERICACalcium [Mass/Vol]10.3 mg/dLHigh 8.5-10.2CHarrison Community Hospital on above:Order Comment: Specimen Type: BLOOD SPECIMENOrdering Facility: [facility] Address:[address] [place], [place] [address]Performed By: #### ####[facility] [id number] [facility] CHARLOTTEK [place] [id number] [place] AMERICAChloride [Moles/Vol]103 mmol/SMyhshh64-017 [facility] on above:Order Comment: Specimen Type: BLOOD SPECIMENOrdering Facility: [facility] Address:[address] [place], [place] [address]Performed By: #### ####[facility] [id number] [place] [id number] [place] AMERICACO2 [Moles/Vol]27 mmol/HIzspwd88-31BtbelafdhSelect Medical Specialty Hospital [facility] Comment on above:Order Comment: Specimen Type: BLOOD SPECIMENOrdering Facility: [facility] Address:[address] [place] [address] Performed By: #### ####[facility] [id number] [address] [address] [place] Creatinine [Mass/Vol]0.76 mg/dLNormal0.58-0.96[facility] on above:Order Comment: Specimen Type: BLOOD SPECIMENOrdering Facility: [facility] Address:[address] [place], [place] [address] Performed By: #### ####[facility] LABW[facility] [id number] [place] [id number] [place] Creatinine and Glomerular filtration rate.predicted panel (S/P/Bld)91 mL/min/1.73m???Normal>=60[facility] on above:Order Comment: Specimen Type: BLOOD SPECIMENOrdering Facility: [facility] Address:[address] [place], [place] [address]Result Comment: Estimated Glomerular Filtration Rate (eGFR) is [...] not accurately reflect actual GFR.Performed By: #### ####[facility] [id number] [address] [address] [place] STATES OF AMERICAGlucose [Mass/Vol]134 mg/dLHigh 74-99[facility] on above:Order Comment: Specimen Type: BLOOD SPECIMENOrdering Facility: [facility] Address:[address] [place], [place] [id number] Comment: The [place] Diabetes Association (ADA) provides guidance for cutoff [...] Standards of Medical Care in Diabetes 2016, [place] Diabetes Association. Diabetes Care. 2016.39(Suppl 1).Performed By: #### 1986-08, ####[facility] [id number] [place] [address] [place] OF AMERICAPotassium [Moles/Vol]4.6 mmol/L Normal3.7-5.1CH[facility] on above:Order Comment: Specimen Type: BLOOD SPECIMENOrdering Facility: [facility] Address:[address] [place], [place] [address]Performed By: #### ####[facility] [id number] [place] [id number] [place] AMERICAProtein [Mass/Vol]7.3 g/dLNormal6.3-8.0[facility] on above:Order Comment: Specimen Type: BLOOD SPECIMENOrdering Facility: [facility] Address:[address] [place], [place] [address]Performed By: #### ####[facility] [id number] [place] [id number] [place] OF AMERICASodium [Moles/Vol]142 mmol/QVrjiud520-110QrxehowlfKettering Memorial Hospital on above:Order Comment: Specimen Type: BLOOD SPECIMENOrdering Facility: [facility] Address:[address] [place], [place] [address]Performed By: #### 1986-08, ####[facility] LABCLIA [id number] [place] [address] [place] AMERICAUrea nitrogen [Mass/Vol]24 mg/dLHigh7-21[facility] on above:Order Comment: Specimen Type: BLOOD SPECIMENOrdering Facility: [facility] Address:[address] [place] [address] Performed By: #### 1986-08, ####[facility] LABCLIA [id number] [place] [address] [place] Eosinophils/100 WBC Auto (Bld)on 82-90-3502Tmiadkfaobp/100 WBC (Bld)Automated eosinophil %[facility] CenterErythrocyte distribution width Auto (RBC) [Ratio]on 19-23-3611Qsgcdriojuf distribution width (RBC) [Ratio] Erythrocyte distribution width [Ratio] by Automated count11.5-15.0[facility] Medical CenterHematocrit Auto (Bld) [Volume fraction]on 07-02-2024 Hematocrit (Bld) [Volume fraction]Hematocrit [Volume Fraction] of Blood by Automated count36.0-46.0[facility] CenterHemoglobin [Mass/volume] in Bloodon 70-02-0112Ujypwfqflp (Bld) [Mass/Vol]Hemoglobin [Mass/volume] in Blood11.5-15.5FPremier Health Miami Valley Hospital NorthLaboratory - Chemistry and Chemistry - challengeon 94-08-1258Vuunjzf [Mass/Vol]4.2 g/dL 3.9-4.9[facility] CenterALP [Catalytic activity/Vol]136 U/LHigh 34-123[facility] CenterALT [Catalytic activity/Vol]11 U/L7-38 [facility] CenterAST [Catalytic activity/Vol]15 U/L13-35 [facility] CenterBilirubin [Mass/Vol]0.4 mg/dL0.2-1.3FPremier Health Miami Valley Hospital NorthCalcium [Mass/Vol]10.3 mg/dLHigh8.5-10.2[facility] CenterChloride [Moles/Vol]103 mmol/B48-140VriglqhjlUniversity Hospitals Tripoint Medical CenterCO2 [Moles/Vol]27 mmol/W91-04EeokmpyktUniversity Hospitals Tripoint Medical Center Creatinine [Mass/Vol]0.76 mg/dL0.58-0.96[facility] CenterGlucose [Mass/Vol]134 mg/nOVzht55-35ZqvhsayyeUniversity Hospitals Tripoint Medical CenterComment on above: The [place] Diabetes Association (ADA) provides guidance for cutoff [...] diabetes.Reference: Standardsof Medical Care in Diabetes 2016, [place] Diabetes Association. Diabetes Care. 2016.39(Suppl 1).Potassium [Moles/Vol]4.6 mmol/L3.7-5.1FUniversity Hospitals Geauga Medical Centerodium [Moles/Vol]142 mmol/Y891-002SfbfioprqUniversity Hospitals Tripoint Medical CenterUrea nitrogen [Mass/Vol]24 mg/dLHigh7-21[facility] Laboratory - Hematology and Cell countson 20-00-7030Vxixdkenmya (Bld) [#/Vol] 0.10 10*3/uL<0.46[facility] CenterImmature granulocytes (Bld) [#/Vol]0.03 10*3/uL<0.10[facility] CenterImmature granulocytes/100 WBC (Bld)0.4 %[facility] CenterLeukocytes [#/volume] corrected for nucleated erythrocytes in Blood by Automated counon 92-65-8884HRZ corrected for nucl RBC Auto (Bld) [#/Vol]Leukocytes [#/volume] corrected for nucleated erythrocytes in Blood by Automated coun3.70-11.00 [facility] Medical CenterLymphocytes Auto (Bld) [#/Vol]on 07-02-2024 Lymphocytes (Bld) [#/Vol]Lymphocytes [#/volume] in Blood by Automated count 1.00-4.00[facility] CenterLymphocytes/100 WBC Auto (Bld)on 81-67-8366Yxwxexwzcou/100 WBC (Bld)Lymphocytes/100 leukocytes in Blood by Automated countSelect Medical Cleveland Clinic Rehabilitation Hospital, BeachwoodH Auto (RBC) [Entitic mass]on 78-24-1214VIP (RBC) [Entitic mass]MCH [Entitic mass] by Automated count26.0-34.0 [facility] CenterMCHC Auto (RBC) [Mass/Vol]on 35-31-0532GHXJ (RBC) [Mass/Vol]MCHC [Mass/volume] by Automated count30.5-36.0[facility], BeachwoodV Auto (RBC) [Entitic vol]on 11-13-9254TZN (RBC) [Entitic vol] MCV [Entitic volume] by Automated count80.0-100.0[facility] CenterMonocytes Auto (Bld) [#/Vol]on 49-81-8307Ruamjqjej (Bld) [#/Vol]Automated blood monocyte count<0.87[facility] CenterMonocytes/100 WBC Auto (Bld)on 01-61-1343Sdurxnbmy/100 WBC (Bld)Automated monocyte %[facility] CenterNeutrophils Auto (Bld) [#/Vol]on 18-55-6177Kpgripslttg (Bld) [#/Vol]Neutrophils [#/volume] in Blood by Automated count1.45-7.50[facility] CenterNeutrophils/100 WBC Auto (Bld)on 07-02-2024 Neutrophils/100 WBC (Bld)Automated neutrophil %[facility] No Panel Informationon 08-11-4514Upea-(1,3)-D-Glucan QualitativeNegativeNegative [facility] CenterBeta-(1,3)-D-Glucan Quantitative<31 pg/mL<60 [facility] CenterC-Reactive Protein, Quantitative<0.3 mg/dL<0.9 [facility] CenterEstimated GFR (CKD-EPI)91 mL/min/1.73m???>=60 [facility] CenterComment on above:Estimated Glomerular Filtration Rate (eGFR) is calculated using the 2020 CKD-EPI creatinine equation. This equation utilizes serum creatinine, sex, and age as parameters. The creatinine assay has traceable calibration to isotope dilution-mass spectrometry. Refer to KDIGO guidelines for clinical interpretation. In patients with unstable renal function, e.g. those with acute kidney injury, the eGFRmay not accurately reflect actual GFR.Posaconazole Level3.0 ug/mL0.7-3.9[facility] CenterComment on above:Ranges are based on trough draw at steady-state concentration.Therapeutic: >0.9 ug/mLProphylactic: >0.6 ug/mLToxic: >3.9 ug/mLThe therapeutic, prophylactic, and toxic ranges were based on the 2016 Infectious Disease Society of [place]'s (IDSA) Clinical Practice Guidelines for the Management of Aspergillosis and Candidiasis and consultation from [facility]'s Department of InfectiousDisease.Reference ranges and high/low indicator flags are provided as general guidelines only. The treating physician must determine appropriate target levels/dosing based on the specific clinical situation.This test was developed, and its performance characteristics determined by the [facility] Department of Pathology and Laboratory Medicine. It has not been cleared or approved by the FDA.The [facility] Department of Pathology and Laboratory Medicine is regulated under CLIA as qual ified to perform high-complexity testing. This test is used for clinical purposes. It should not beregarded as investigational or for research.Nucleated RBC Auto (Bld) [#/Vol]on 98-89-4825Qbiqzvgoe RBC (Bld) [#/Vol]Nucleated erythrocytes [#/volume] in Blood by Automated count<0.01[facility] CenterNucleated erythrocytes [Presence] in Blood by Automated counton 86-04-7187Pndekiyfw RBC Auto Ql (Bld)Nucleated erythrocytes [Presence] in Blood by Automated countUniversity Hospitals Tripoint Medical CenterPOSACONAZOLE, SERUMon 71-18-7981Yqectpnfmzqb [Mass/Vol]3.0 ug/mLNormal0.7-3.9CHarrison [facility] on above:Order Comment: Specimen Type: BLOOD SPECIMENOrdering Facility: [facility] Address:[address] [place] [address] [place], [place] [address]Egmmnd Comment: Ranges are based on trough draw at steady-state concentration. Therapeutic: >0.9 ug/mL Prophylactic: >0.6 ug/mL Toxic: >3.9 ug/mL The therapeutic, prophylactic, and toxic ranges were based on the 2016 Infectious Disease Society of [place]'s (IDSA) Clinical Practice Guidelines for the Management of Aspergillosis and Candidiasis and consultation from [facility]'s Department of Infectious Disease. Reference ranges and high/low indicator flags are provided as general guidelines only. The treatingphysician must determine appropriate target levels/dosing based on the specific clinical situation. This test was developed, and its performance characteristics determined by the [facility] Department of Pathology and Laboratory Medicine. It has not been cleared or approved by the FDA. The [facility] Department of Pathology and Laboratory Medicine is regulated under CLIA as qualified to perform high-complexity testing. This test is used for clinical purposes. It should not be regarded as investigational or for research.Performed By: #### POSACN ####[facility] LABCLIA [id number] [place] [address] [place] AMERICAPlatelet mean volume Auto (Bld) [Entitic vol]on 87-25-5694Snsllgtx mean volume (Bld) [Entitic vol]Platelet mean volume [Entitic volume] in Blood by Automated count9.0-12.7FPremier Health Miami Valley Hospital NorthPlatelets Auto (Bld) [#/Vol]on 61-95-5313Zfgxbarum (Bld) [#/Vol] Platelets [#/volume] in Blood by Automated iuynf494-928DjylufbxeUniversity Hospitals Tripoint Medical CenterProtein [Mass/volume] in Serum or Plasmaon 83-31-2197Ghvgicn [Mass/Vol]Protein [Mass/volume] in Serum or Plasma6.3-8.0[facility] Medical CenterRBC Auto (Bld) [#/Vol]on 44-98-7735DEI (Bld) [#/Vol]Erythrocytes [#/volume] in Blood by Automated count3.90-5.20[facility] Serum or plasma anion gap determinationon 11-74-9814Zrmuc gap [Moles/Vol]Serum or plasma anion gap determination8-15[facility] CenterCT BRAIN WO IVCONon 74-28-8496SN BRAIN WO IVCON* * *Final Report* * * DATE OF EXAM: Jul 01 2024 2:16PM [facility] 0504 - CT BRAIN WO IVCON / [...] any questions regarding this interpretation, please call [phone]. If you are unable to reach us at the number above, please feel free to contact [facility] eRadiology at [phone]. [id number]. John of God Hospital Head WO contraston 26-05-8071TEPPLVGXJN: Compared to head CT performed 04/10/2024, there [...] any questions regarding this interpretation, please call [phone]. If you are unable to reach us at the number above, please feel free to contact [facility] eRadiology at [phone].DIVISION OF RADIOLOGY* * *Final Report* * * DATE OF EXAM: Jul 01 2024 2:16PM [facility] 0504 - CT BRAIN WO IVCON / [...] soft tissues are unremarkable. DIVISION OF RADIOLOGYProvider, [facility] [place] - 07/01/2024 * * *Final Report* * * DATE OF EXAM: Jul 01 2024 2:16PM [facility] 0504 - CT BRAIN WO IVCON / [...] any questions regarding this interpretation, please call [phone]. If you are unable to reach us at the number above, please feel free to contact [facility] at [phone]. [facility] HospitalRadiology Study observation (narrative)[facility] Head WO contrastOrdered By: Ccf Provider on 11-03-7132Enctpodqz ClinicBasophils Auto (Bld) [#/Vol]on 26-49-1068Elfldqjhk (Bld) [#/Vol]Automated basophil count0.0-0.1 [facility] CenterBasophils/100 WBC Auto (Bld)on 06-20-2024 Basophils/100 WBC (Bld)Automated basophil %0.2-2.0[facility] CenterEosinophils/100 WBC Auto (Bld)on 99-94-3242Ncomfpiegbp/100 WBC (Bld) Automated eosinophil %0.9-7.0[facility] CenterErythrocyte distribution width Auto (RBC) [Ratio]on 20-86-4494Txbzrdytxwh distribution width (RBC) [Ratio]Erythrocyte distribution width [Ratio] by Automated count11.0-15.0 [facility] CenterEstimated glomerular filtration rate (GFR) non- Americanon 62-90-0648XOX/1.73 sq M.predicted among non-blacks MDRD (S/P/Bld) [Vol rate/Area]Estimated glomerular filtration rate (GFR) non->=60 mL/min/1.73m 2FPremier Health Miami Valley Hospital NorthHematocrit Auto (Bld) [Volume fraction]on 14-48-0842Qpiodhndel (Bld) [Volume fraction]Hematocrit [Volume Fraction] of Blood by Automated count36.0-48.0[facility] Medical CenterHemoglobin [Mass/volume] in Bloodon 94-10-8649Ddfhtqjegj (Bld) [Mass/Vol] Hemoglobin [Mass/volume] in Blood12.0-16.0[facility] Laboratory - Chemistry and Chemistry - challengeon 74-99-5166Ripdoow [Mass/Vol] 9.4 mg/dL8.5-10.1FPremier Health Miami Valley Hospital NorthChloride [Moles/Vol]107 mmol/L 98-107[facility] CenterCO2 [Moles/Vol]28.0 mmol/L21.0-32.0 [facility] CenterCreatinine [Mass/Vol]0.75 mg/dL0.55-1.02 [facility] CenterGFR/1.73 sq M.predicted MDRD (S/P/Bld) [Vol rate/Area]mL/min/{1.73_m2}>=60 mL/min/1.73m 2FPremier Health Miami Valley Hospital North Glucose [Mass/Vol]89 mg/bS59-265QnrsxjvxlUniversity Hospitals Tripoint Medical CenterPotassium [Moles/Vol]3.6 mmol/L3.5-5.1FUniversity Hospitals Geauga Medical Centerodium [Moles/Vol] 143 mmol/Q336-055IinlahdelUniversity Hospitals Tripoint Medical CenterUrea nitrogen [Mass/Vol]32.0 mg/dLHigh7.0-18.0[facility] CenterUrea nitrogen/Creatinine [Mass ratio]42.7 mg/mgUniversity Hospitals Tripoint Medical CenterLaboratory - Hematology and Cell countson 14-54-4711Hyybahiz granulocytes/100 WBC (Bld)0.3 %0.0-0.5FPremier Health Miami Valley Hospital NorthLeukocytes [#/volume] corrected for nucleated erythrocytes in Blood by Automated counon 10-89-2267HVJ corrected for nucl RBC Auto (Bld) [#/Vol]Leukocytes [#/volume] corrected for nucleated erythrocytes in Blood by Automated coun4.0-11.0[facility] Medical CenterLymphocytes Auto (Bld) [#/Vol]on 62-15-5441Tmjaipuqtfl (Bld) [#/Vol]Lymphocytes [#/volume] in Blood by Automated countLow1.2-3.8[facility] Lymphocytes/100 WBC Auto (Bld)on 37-12-7384Ajdypktuvjm/100 WBC (Bld) Lymphocytes/100 leukocytes in Blood by Automated xsaysCil46.5-60.0[facility], BeachwoodH Auto (RBC) [Entitic mass]on 54-90-9102YVB (RBC) [Entitic mass]MCH [Entitic mass] by Automated count26.7-34.0[facility], BeachwoodHC Auto (RBC) [Mass/Vol]on 73-74-8058RBUE (RBC) [Mass/Vol]MCHC [Mass/volume] by Automated count29.9-35.2FPremier Health Miami Valley Hospital NorthMCV Auto (RBC) [Entitic vol]on 81-37-0338UWN (RBC) [Entitic vol]MCV [Entitic volume] by Automated count81.0-99.0[facility] Medical CenterMonocytes Auto (Bld) [#/Vol]on 32-42-0280Daqlyrzut (Bld) [#/Vol]Automated blood monocyte count0.3-0.8 [facility] CenterMonocytes/100 WBC Auto (Bld)on 06-20-2024 Monocytes/100 WBC (Bld)Automated monocyte %1.7-12.0[facility] Medical CenterNeutrophils Auto (Bld) [#/Vol]on 12-98-1116Txomropiksr (Bld) [#/Vol] Neutrophils [#/volume] in Blood by Automated count1.4-6.5FPremier Health Miami Valley Hospital NorthNeutrophils/100 WBC Auto (Bld)on 20-42-7756Kvvdbqgvqef/100 WBC (Bld)Automated neutrophil %43.0-75.0[facility] CenterNo Panel Informationon 74-92-8009Gcaxontzrbm difficile (PCR)(LAB)NegativeUniversity Hospitals Tripoint Medical CenterEosinophils # (Auto)0.1 10 3/uL0.0-0.7FPremier Health Miami Valley Hospital NorthImmature Granulocyte # (Auto)0.02 10 3/uL0.00-0.03[facility] Medical CenterPlatelet mean volume Auto (Bld) [Entitic vol]on 68-95-2791Mrsuzisu mean volume (Bld) [Entitic vol]Platelet mean volume [Entitic volume] in Blood by Automated countLow9.5-13.5FPremier Health Miami Valley Hospital North Platelets Auto (Bld) [#/Vol]on 28-69-0933Zkcyvyjsa (Bld) [#/Vol]Platelets [#/volume] in Blood by Automated rexgy634-045UyakpxkxzUniversity Hospitals Tripoint Medical Center RBC Auto (Bld) [#/Vol]on 85-48-8655OLP (Bld) [#/Vol]Erythrocytes [#/volume] in Blood by Automated countLow4.20-5.40Adams County Hospitalerum or plasma anion gap determinationon 38-69-5525Bprtg gap [Moles/Vol]Serum or plasma anion gap determinationUniversity Hospitals Tripoint Medical CenterUS arterial pvr rest LE on 96-89-6920HA arterial pvr rest [facility] [place] [address] Ultrasound Report Signed Patient: Chikis Tobar MR#: [id number] : 1965 Acct:[id number] Age/Sex: 58 / F ADM Date: 05/27/24 Loc: Room: Type: [facility] Attending Dr: Juliette Berumen DO Ordering Provider: Juliette Berumen DO Date of Service: 05/27/24 US/US arterial pvr rest LE: 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 Copies to: Juliette Berumen DO Bilateral lower [...] Chip Hagen M.D.05/27/2024 4:11 PM Dictation Location[facility]ITALDOCC[facility] Tech: Chelsie Serra Transcribed By: YAMILET 05/27/24 1611 Dictated By: Chip Hagen MD 05/27/24 1608 Signed By: 05/27/24 1611[facility] Physician GroupUS venous duplex LE Critical access hospital 06-92-4066FZ venous duplex LE [facility] Main [place] [address] [place] [address] Ultrasound Report Signed Patient: Chikis Tobar MR#: [id number] : 1965 Acct:[id number] Age/Sex: 58 / F ADM Date: 05/27/24 Loc: Room: Type: [facility] Attending Dr: Juliette Berumen DO Ordering Provider: [...] Chip Hagen M.D.05/27/2024 4:08 PM Dictation Location: [id number] Tech: Nikky Nova Transcribed By: YAMILET 05/27/24 1608 Dictated By: Chip Hagen MD 05/27/24 1607 Signed By: 05/27/24 1608U[facility] Physician GroupX-ray reportOrdered By: Chip Flores on 04-18-6215Ngmlx reportFIRLIMA CITY H[facility]ITAL Main [address] [address] XRay Report Signed Patient: Chikis Tobar MR#: [id number] : 1965 Acct:[id number] Age/Sex: 58 / F ADM Date: 5 Loc: UL Room: Type: REG CLI Attending Dr: Juliette [...] Chip Flores M.D.05/27/2024 3:09 PM Dictation Location: [place] [address] Transcribed By: [facility] 05/27/24 1509 Dictated By: Chip Flores DO 05/27/24 1506 Signed By: 05/27/24 1509 [facility] CenterXR foot LT min 3V*on 03-67-9151EE foot LT min 3V*[facility] Main [address] [address] XRay Report Signed Patient: Chikis Tobar MR#: [id number] : 1965 Acct:[id number] Age/Sex: 58 / F ADM Date: 05/27/24 Loc: UL Room: Type: REG CLI Attending Dr: Juliette [...] Chip Flores M.D.05/27/2024 3:09 PM Dictation Location: RADIO-PC-16 Transcribed By: [facility] 05/27/24 1509 Dictated By: hCip Flores DO 05/27/24 1506 Signed By: 05/27/24 1509[facility] Physician GroupAerobic Cultureon 05-06-2024 Aerobic CultureORGANISM: Methicillin [...] RESISTANT TO ALL B-LACTAM DRUGS. PERFORMED BY: [address] [place] [address] PATHOLOGIST BRAKE LINING DRILLER LANETTE KATZ M.D.[facility] Physician GroupComment on above: Performed By: #### AERC #### [facility] [address] [place] [address] USAAnaerobic cultureOrdered By: Sharan Dominguez on 05-06-2024 Bacteria identified Anaer cx Nom (Unsp spec)Anaerobic cultureUniversity Hospitals Tripoint Medical CenterBacteria identified Anaer cx Nom (Unsp spec)Anaerobic culture [facility] Medical CenterBacteria identified Aer cx Nom (Unsp spec) Ordered By: Sharan Dominguez on 47-78-5803Iplhvze CultureAbnormAdams County HospitalAerobic CultureAbnoMartin Memorial HospitalGram stain microscopyOrdered By: Sharan Dominguez on 23-23-4021Kplrlqeakki observation Gram stain Nom (Unsp spec)Gram stain microscopyUniversity Hospitals Tripoint Medical Center Microscopic observation Gram stain Nom (Unsp spec)Gram stain microscopyUniversity Hospitals Tripoint Medical CenterCNOVon 18-84-1107MTUVBodhvv Visit ([facility]BAR ([id number]) 1965 F Date Time Provider Department 04/22/24 1:45 PM [facility] During your visit today, we recorded [...] skin should be examined by a health landcare officer if changes persist or infection is suspected. [...] with pharmacy. Please contact our office via iRule or by phone at [phone] with any questions or concerns. 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 Patient experienced impaired mobility and functions after removal of shunt and noted minimal improvement in lower extremity function post shunt reimplantation. She was evaluated in [facility] spastic[facility] initially on 12/04/2023 for paraplegia and associated severe spasticity and flexor spasms. [facility]. 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 Patient experienced impaired mobility and functions after removal of shunt and noted minimal improvement in lower extremity function post shunt reimplantation. She was evaluated in [facility] spasticity clinic initially on 12/04/2023 for paraplegia and associated severe spasticity and flexor spasms. She was discharged home from [facility] rehab facility on 02/15/2024. She received initial [...] activities or working with therapies. [facility] Worked with [facility] therapies. Feels that [...] Knee flexion 3+ 3+ (more content not included)...NormalSelect Medical Specialty Hospital - [facility] SouthPOSACONAZOLE, SERUMOrdered By: Kierra Evans on 04-11-2024 Interpretation and review of laboratory resultsNormalClevelfrye regional medical center Clinic Posaconazole [Mass/Vol]2.8 ug/mL0.7 - 3.9 ug/mLCleveland ClinicComment on above: Ranges are based on trough draw at steady-state concentration. Therapeutic: >0.9 ug/mL Prophylactic: >0.6 ug/mL Toxic: >3.9 ug/mL The therapeutic, prophylactic, and toxic ranges were based on the 2016 Infectious Disease Society of [place]'s (IDSA) Clinical Practice Guidelines for the Management of Aspergillosis and Candidiasis and consultation from [facility]'s Department of Infectious Disease. Reference ranges and high/low indicator flags are provided as general guidelines only. The treatingphysician must determine appropriate target levels/dosing based on the specific clinical situation. This test was developed, and its performance characteristics determined by the [facility] Department of Pathology and Laboratory Medicine. It has not been cleared or approved by the FDA. The [facility] Department of Pathology and Laboratory Medicine is regulated under CLIA as qualified to perform high-complexity testing. This test is used for clinical purposes. It should not be regarded as investigational or for research. [facility] HospitalBasophils Auto (Bld) [#/Vol]on 24-13-3985Pnnulzmvg (Bld) [#/Vol] Automated basophil count<0.11[facility] CenterBasophils/100 WBC Auto (Bld)on 68-84-7080Gnmrcwuro/100 WBC (Bld)Automated basophil %[facility] Medical CenterBlood manual differential comment interpretation narrativeon 10-89-1691Aviwid differential comment Reymundo (Bld) [Interp]Blood manual differential comment interpretation narrativeUniversity Hospitals Tripoint Medical Center C-REACTIVE PROTEINon 68-66-7484TJS [Mass/Vol]mg/dLNINF - 0.9 mg/dLKettering Health Behavioral Medical Center W Auto Differential panel (Bld)on 23-18-0627Tgunyxfkf (Bld) [#/Vol] 0.04 10*3/uLNINFMercy Health – The Jewish HospitalBasophils/100 WBC (Bld)0.8 %[facility] Differential cell count method Nom (Bld)AutoCleveland ClinicEosinophils (Bld) [#/Vol]0.11 10*3/uLNINFMercy Health – The Jewish HospitalEosinophils/100 WBC (Bld)2.2 %[facility] HospitalErythrocyte distribution width (RBC) [Ratio]14.0 %11.5 - 15.0 %[facility] HospitalHematocrit (Bld) [Volume fraction]37.4 %36.0 - 46.0 %[facility] Hemoglobin (Bld) [Mass/Vol]11.9 g/dL11.5 - 15.5 g/dLMercy Health – The Jewish HospitalImmature granulocytes (Bld) [#/Vol]NINFCRegency Hospital ToledoImmaholzer medical center – jackson granulocytes/100 WBC (Bld)0.4 %[facility] HospitalLymphocytes (Bld) [#/Vol]1.03 10*3/[facility] Lymphocytes/100 WBC (Bld)20.8 %[facility] HospitalH (RBC) [Entitic mass]29.8 pg 26.0 - 34.0 pgCCleveland Clinic Union HospitalHC (RBC) [Mass/Vol]31.8 g/dL30.5 - 36.0 g/dL [facility] Union HospitalV (RBC) [Entitic vol]93.5 fL80.0 - 100.0 fLCRegency Hospital Toledo Monocytes (Bld) [#/Vol]0.46 10*3/NIPomerene HospitalMonocytes/100 WBC (Bld) 9.3 %[facility] HospitalNeutrophils (Bld) [#/Vol]3.30 10*3/[facility] Neutrophils/100 WBC (Bld)66.5 %[facility] HospitalNucleated RBC (Bld) [#/Vol]NINF [facility] HospitalNucleated RBC/100 WBC (Bld) [Ratio]0.0 %/100 WBCMercy Health – [facility] Hospital Platelet mean volume (Bld) [Entitic vol]9.3 fL9.0 - 12.7 fLCRegency Hospital Toledo Platelets (Bld) [#/Vol]338 10*3/[facility] Medical CenterRBC (Bld) [#/Vol]4.00 10*6/uL 3.90 - 5.20 m/[facility] Medical CenterWBC (Bld) [#/Vol]4.96 10*3/uLCleAvita Health System Bucyrus HospitalBasophils (Bld) [#/Vol]0.04 10*3/uLNormal<0.11CHarrison Community Hospital on above:Order Comment: Specimen Type: BLOOD SPECIMENOrdering Facility: [facility] Address:[address] [place], [place] [address]Performed By: #### 95238-3 ####[facility] LABCLIA [id number] [place] [address] [place] Basophils/100 WBC (Bld)0.8 %[facility] on above: Order Comment: Specimen Type: BLOOD SPECIMENOrdering Facility: [facility] Address:[address] [place], [place] [address]Performed By: #### 33849- 8 ####[facility] LABCLIA [id number] [place] [address] [place] AMERICADifferential cell count method Nom (Bld)AutoNormalClevelProtestant Deaconess Hospital on above:Order Comment: Specimen Type: BLOOD SPECIMENOrdering Facility: [facility] Address:[address] [place], [place] [address]Performed By: #### 09365-3 ####[facility] LABCL[facility] [id number] [place] [address] [place] AMERICAEosinophils (Bld) [#/Vol]0.11 10*3/uLNormal<0.46[facility] on above:Order Comment: Specimen Type: BLOOD SPECIMENOrdering Facility: [facility] Address:[address] [place], [place] [address]Performed By: #### 63661-5 ####[facility] LABCLIA [id number] [place] [address] [place] AMERICAEosinophils/100 WBC (Bld)2.2 % NormalKettering Memorial Hospital on above:Order Comment: Specimen Type: BLOOD SPECIMENOrdering Facility: [facility] Address:[address] [place], [place] [address]Performed By: #### 62275-6 ####[facility] LABIA [id number] [place] [address] [place] AMERICAErythrocyte distribution width (RBC) [Ratio]14.0 %Normal 11.5-15.0[facility] on above:Order Comment: Specimen Type: BLOOD SPECIMENOrdering Facility: [facility] Address:[address] [place], [place] [address]Performed By: #### 04864-6 ####[facility] [id number] [place] [address] [place] AMERICAHematocrit (Bld) [Volume fraction]37.4 %Sdjbnr77.0-46.0 [facility] SouthComment on above:Order Comment: Specimen Type: BLOOD SPECIMENOrdering Facility: [facility] Address:[address] [place], [place] [address]Performed By: #### 22843-6 ####[facility] [id number] [place] [address] [place] AMERICAHemoglobin (Bld) [Mass/Vol]11.9 g/xJExmzop35.5-15.5CHarrison Community Hospital on above:Order Comment: Specimen Type: BLOOD SPECIMENOrdering Facility: [facility] Address:[address] [place], [place] [address]Performed By: #### 98087-7 ####[facility] LABIA [id number] [place] [address] [place] Immature granulocytes (Bld) [#/Vol]10*3/uLNormal<0.10[facility] Comment on above:Order Comment: Specimen Type: BLOOD SPECIMENOrdering Facility: [facility] Address:[address] [place] [address] Performed By: #### 50285-6 ####[facility] LABIA [id number] [place] [address] [place] Immature granulocytes/100 WBC (Bld)0.4 %NormalKettering Memorial Hospital on above:Order Comment: Specimen Type: BLOOD SPECIMENOrdering Facility: [facility] Address:[address] [place] [address] Performed By: #### 88562-6 ####[facility] LABCL[facility] [id number] [place] [address] [place] Lymphocytes (Bld) [#/Vol]1.03 10*3/uLNormal1.00-4.00[facility] Comment on above:Order Comment: Specimen Type: BLOOD SPECIMENOrdering Facility: [facility] Address:[address] [place] [address] Performed By: #### 44919-3 ####[facility] LABCL[facility] [id number] [address] [place] Lymphocytes/100 WBC (Bld)20.8 %NormalKettering Memorial Hospital on above: Order Comment: Specimen Type: BLOOD SPECIMENOrdering Facility: [facility] Address:[address] [place], [place] [address]Performed By: #### 64437- 8 ####[facility] LABCLIA [id number] [address] (RBC) [Entitic mass]29.8 pg Xmtree29.0-34.0[facility] on above:Order Comment: Specimen Type: BLOOD SPECIMENOrdering Facility: [facility] Address:[address] [place], [place] [address]Performed By: #### 46311-1 ####[facility] LABCLIA [id number] [address] STATES OF [facility] (RBC) [Mass/Vol]31.8 g/dL Oucuvc37.5-36.0[facility] on above:Order Comment: Specimen Type: BLOOD SPECIMENOrdering Facility: [facility] Address:[address] [place], [place] [address]Performed By: #### 27692-3 ####[facility] LABIA [id number] [place] [address] [place] AMERICAMCV (RBC) [Entitic vol]93.5 fL Ujyzxy69.0-100.0[facility] on above:Order Comment: Specimen Type: BLOOD SPECIMENOrdering Facility: [facility] Address:[address] [place], [place] [address]Performed By: #### 98513-7 ####[facility] LABIA [id number] [place] [address] [place] AMERICAMonocytes (Bld) [#/Vol]0.46 10*3/uLNormal<0.87[facility] on above:Order Comment: Specimen Type: BLOOD SPECIMENOrdering Facility: [facility] Address:[address] [place], [place] [address]Performed By: #### 51857-6 ####[facility] LABIA [id number] [place] [address] [place] AMERICAMonocytes/100 WBC (Bld)9.3 % NormalKettering Memorial Hospital on above:Order Comment: Specimen Type: BLOOD SPECIMENOrdering Facility: [facility] Address:[address] [place], [place] [address]Performed By: #### 14763-1 ####[facility] LABCL[facility] [id number] [place] [address] [place] AMERICANeutrophils (Bld) [#/Vol]3.30 10*3/uLNormal1.45-7.50[facility] on above:Order Comment: Specimen Type: BLOOD SPECIMENOrdering Facility: [facility] Address:[address] [place], [place] [address]Performed By: #### 52590-5 ####[facility] LAB[facility] [id number] [place] [address] [place] AMERICANeutrophils/100 WBC (Bld)66.5 %NormalKettering Memorial Hospital on above:Order Comment: Specimen Type: BLOOD SPECIMENOrdering Facility: [facility] Address:[address] [place] [address] Performed By: #### 19451-9 ####[facility] LABCL[facility] [id number] [place] [address] [place] Nucleated RBC (Bld) [#/Vol]10*3/uLNormal<0.01[facility] on above:Order Comment: Specimen Type: BLOOD SPECIMENOrdering Facility: [facility] Address:[address] [place] [address] Performed By: #### 20923-4 ####[facility] LABCL[facility] [id number] [place] [address] [place] Nucleated RBC/100 WBC (Bld) [Ratio]0.0 /100 WBCNormalCUniversity Hospitals [facility]ria Medical Center Comment on above:Order Comment: Specimen Type: BLOOD SPECIMENOrdering Facility: [facility] Address:[address] [place] [address] Performed By: #### 21160-9 ####[facility] [id number] [place] [address] [place] Platelet mean volume (Bld) [Entitic vol]9.3 fLNormal9.0-12.7CHarrison Community Hospital on above:Order Comment: Specimen Type: BLOOD SPECIMENOrdering Facility: [facility] Address:[address] [place], [place] [address]Performed By: #### 41162-9 ####[facility] LABCL[facility] [id number] [place] [address] [place] Platelets (Bld) [#/Vol]338 10*3/bYDymtxl409-216Daesthcgo Clinic ClevelandComment on above:Order Comment: Specimen Type: BLOOD SPECIMENOrdering Facility: [facility] Address:[address] [place] [address] Performed By: #### 04021-2 ####[facility] LABCL[facility] [id number] [place] [address] [place] RBC (Bld) [#/Vol]4.00 10*6/uLNormal3.90-5.20[facility] on above:Order Comment: Specimen Type: BLOOD SPECIMENOrdering Facility: [facility] Address:[address] [place], [place] [address]Performed By: #### 72303-1 ####[facility] LAB[facility] [id number] [place] [address] [place] AMERICAWBC (Bld) [#/Vol]4.96 10*3/uLNormal3.70-11.00[facility] on above:Order Comment: Specimen Type: BLOOD SPECIMENOrdering Facility: [facility] Address:[address] [place], [place] [address]Performed By: #### 80210-8 ####[facility] LABIA [id number] [address] OF [facility] MEDICAL CENTERCNOVon 97-87-3622ZWVUCqvgeu Visit (NREUS2) CHIKIS TOBAR ([id number]) 1965 F Date Time Provider Department 04/10/24 2:00 PM MARLENE CORDERO NREUS2 During your visit today, we recorded the following information about you: Pulse Blood pressure 97/minute 120/61 Marlene Cordero PA-C 04/10/2024 2:16 PM Signed CC: PSYCH NURSE shunt f/u HPI: Mrs Chikis Tobar is a 58 year old female with 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 Chikis's shunt was previously removed at [facility] on 07/10/23 following surgery for bowel obstruction [...] with a history of communicating hydrocephalus. Her PSYCH NURSE shunt was removed on 07/10/23 following laparotomy [...] type: Certas Initial settin New settin Marlene Schwieterman PA-C Schwieterman, Marlene, PA-C 04/11/2024 7:13 AM Signed Addended by: MARLENE CORDERO on: 04/11/2024 07:13 AM Modules accepted: Orders Referring Provider: MARLENE CORDERO [[id number]] Allergies As of Date: 04/10/2024 Noted Allergy [...] Diagnosis:Other hydrocephalus (HCC) [G91.8] Order(s):CT BRAIN WO DONNA [[id number]] Order #: [id number] FUTURE Prescriptions as of 04/11/2024 - bumetanide [...] EC tablet Start A (more content not included)...NormalUpper Valley Medical CenterOVOffice Visit (INFDMN) CHIKIS TOBAR ([id number]) 1965 F Date Time Provider Department 04/10/24 12:30 PM JAMIE MCCARTY INFN During your visit today, we recorded the [...] was performed and she was transferred to [facility]. She was found to have DKA. A CT head showed hydrocephalus with MRI on May 29 showing multiple enhancement in the anterior sabra, medulla, and in the spine at the level of C7-T3 and L1-S2. Multiple taps were performed and were unsuccessful. A PSYCH NURSE shunt was placed and patient underwent a [...] lobes (8 mm). LFTs 08/16 normal . PSYCH NURSE shunt was adjusted from 4 to 7 Posaconazole level 2.4 on 08/21/22 Developed a facial rash in September 2022, mainly the malar area, a few spots on the forehead. Dx'd with rosacea by PCP and started on metronidazole gel. She was seeing wound care at [facility] for her sacral area ulcer. Rx'd [...] and ambulatory, using a cane PRN. No PSYCH NURSE shunt issues. Balance has improved but still [...] Neuro exam showed abnormal (more content not included)...NormalSelect [facility] CRP SerPl-mCncon 39-39-0923LZQ [Mass/Vol]mg/LNormal<0.9[facility] Unc Health CaldwellComment on above:Order Comment: Specimen Type: BLOOD SPECIMENOrdering Facility: [facility] Address:[address] [place] [address] [place], [place] [address]Performed By: #### 31593-5, 1987-08 ####[facility] LABCLIA [id number] [facility] [id number] [place] [address] [place] AMERICACRP [Mass/Vol]on 50-89-1845Tivjbmuljtzvmb and review of laboratory resultsNormalCleveland St[facility] BRAIN WO IVCONon 31-10-9376KZ BRAIN WO IVCON* * *Final Report* * * DATE OF EXAM: Apr 10 2024 1:12PM [facility] [place] - [place] BRAIN WO IVCON / PROCEDURE REASON: Other hydrocephalus (HCC) * * * * Physician Interpretation * * * * EXAMINATION: CT BRAIN WO IVCON CLINICAL HISTORY: Other hydrocephalus (HCC). PSYCH NURSE shunt reimplanted on 10/11/23. TECHNIQUE: Serial axial [...] 01/10/2024, with ventriculostomy catheter unchanged in position. Printed Circuit Board Assembler: SUMA Transcribe Date/Time: Apr 10 2024 1:26P Dictated by : DION ORTIZ MD This examination was interpreted and the report reviewed and electronically signed by: VASQUEZ VEGA MD on Apr 10 2024 1:57PM EST [id number]. John of God Hospital Head WO contraston 47-65-8101LPZSYMPCKA: Increased caliber of ventricular system compared to 02/07/2024, now comparable to 01/10/2024, with ventriculostomy catheter unchanged in position. Printed Circuit Board Assembler: SUMA Transcribe Date/Time: Apr 10 2024 1:26P Dictated by : DION ORTIZ MD This examination was interpreted and the report reviewed and electronically signed by: VASQUEZ VEGA MD on Apr 10 2024 1:57PM [facility] DIVISION OF RADIOLOGY* * *Final Report* * * DATE OF EXAM: Apr 10 2024 1:12PM [facility] [place] - CT BRAIN WO IVCON / PROCEDURE REASON: Other hydrocephalus (HCC) * * * * Physician Interpretation * * * * EXAMINATION: CT BRAIN WO IVCON CLINICAL HISTORY: Other hydrocephalus (HCC). PSYCH NURSE shunt reimplanted on 10/11/23. TECHNIQUE: Serial axial [...] soft tissues are unremarkable. DIVISION OF RADIOLOGYProvider, [facility] [place] - 04/10/2024 * * *Final Report* * * DATE OF EXAM: Apr 10 2024 1:12PM [facility] [place] [facility] - CT BRAIN WO IVCON / PROCEDURE REASON: Other hydrocephalus (HCC) * * * * Physician Interpretation * * * * EXAMINATION: CT BRAIN WO IVCON CLINICAL HISTORY: Other hydrocephalus (HCC). PSYCH NURSE shunt reimplanted on 10/11/23. TECHNIQUE: Serial axial [...] 01/10/2024, with ventriculostomy catheter unchanged in position. 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B Transcribe Date/Time: Apr 10 2024 1:26P Dictated by : DION ORTIZ MD This examination was interpreted and the report reviewed and electronically signed by: VASQUEZ VEGA MD on Apr 10 2024 1:57PM EST [facility] HospitalRadiology Study observation (narrative)[facility] HospitalCT Head WO contrastOrdered By: Ccf Provider on 71-93-8973Bsithnkfu ClinicComprehensive metabolic 2000 panelon 32-62-2620Jhzigwy [Mass/Vol]4.0 g/dL3.9 - 4.9 g/dL Elma ClinicALP [Catalytic activity/Vol]185 U/LHigh34 - 123 U/LCleveland ClinicALT [Catalytic activity/Vol]15 U/L7 - 38 U/LCleveland ClinicAnion gap [Moles/Vol]12 mmol/L8 - 15 mmol/LCleveland ClinicAST [Catalytic activity/Vol]19 U/L13 - 35 U/LCleveland ClinicBilirubin [Mass/Vol]0.3 mg/dL0.2 - 1.3 mg/dL [facility] HospitalCalcium [Mass/Vol]9.6 mg/dL8.5 - 10.2 mg/dLMercy Health – [facility] Hospital Chloride [Moles/Vol]104 mmol/L98 - 107 mmol/LCleveland ClinicCO2 [Moles/Vol]27 mmol/L22 - 30 mmol/LCleveland ClinicCreatinine [Mass/Vol]0.69 mg/dL0.58 - 0.96 mg/dLMercy Health – The Jewish HospitalGFR/1.73 sq M.predicted among non-blacks MDRD (S/P/Bld) [Vol [...] eGFRmay not accurately reflect actual GFR.Glucose [Mass/Vol]106 mg/yLHdth28 - 99 mg/dLDayton Children's Hospital on above:The [place] Diabetes Association (ADA) provides guidance for cutoff [...] Standards of Medical Care in Diabetes 2016, [place] Diabetes Association. Diabetes Care. 2016.39(Suppl 1). Interpretation and review of laboratory resultsAbnormalCleveland ClinicPotassium [Moles/Vol]4.1 mmol/L3.7 - 5.1 mmol/LClevelfrye regional medical center ClinicProtein [Mass/Vol]6.8 g/dL 6.3 - 8.0 g/dLSt. Mary's Medical Center, Ironton Campusodium [Moles/Vol]143 mmol/L136 - 144 mmol/L [facility] HospitalUrea nitrogen [Mass/Vol]17 mg/dL7 - 21 mg/dLMercy Health – [facility] Hospital Albumin [Mass/Vol]4.0 g/dLNormal3.9-4.9CHarrison Community Hospital on above:Order Comment: Specimen Type: BLOOD SPECIMENOrdering Facility: [facility] Address:[address] [place], [place] [address]Performed By: #### 11594-51987-08 ####[facility] LABCLIA [id number] [place] [address] [place] AMERICAALP [Catalytic activity/Vol]185 U/TKesw33-185PzchezsbwKettering Memorial Hospital on above:Order Comment: Specimen Type: BLOOD SPECIMENOrdering Facility: [facility] Address:[address] [place], [place] [address]Performed By: #### 97863- 81987-08 ####[facility] LABCLIA [id number] [address] [place] [id number] [place] AMERICAALT [Catalytic activity/Vol]15 U/LNormal7-38[facility] on above:Order Comment: Specimen Type: BLOOD SPECIMENOrdering Facility: [facility] Address:[address] [place], [place] [address]Performed By: #### 78679- 8, 1987-08 ####[facility] LABCLIA [id number] [facility] PHOENIXLID AV ENST[address] [place] [address] [place] AMERICAAnion gap [Moles/Vol]12 mmol/LNormal8-15[facility] on above:Order Comment: Specimen Type: BLOOD SPECIMENOrdering Facility: [facility] Address:[address] [place], [place] [address]Performed By: #### 93706-7, 1987-08 ####[facility] LABCLIA [id number] [place] [address] [place] AMERICAAST [Catalytic activity/Vol]19 U/NPbkulr50-65TxwkafhxkKettering Memorial Hospital on above:Order Comment: Specimen Type: BLOOD SPECIMENOrdering Facility: [facility] Address:[address] [place], [place] [address]Performed By: #### 45606-3, 1987-08 ####[facility] LABCLIA [id number] [place] [address] [place] AMERICABilirubin [Mass/Vol]0.3 mg/dLNormal0.2-1.3 [facility] on above:Order Comment: Specimen Type: BLOOD SPECIMENOrdering Facility: [facility] Address:[address] [place], [place] [address]Performed By: #### 96849-4, 1987-08 ####[facility] LABCL[facility] [id number] [place] [address] [place] AMERICACalcium [Mass/Vol]9.6 mg/dLNormal8.5-10.2CHarrison Community Hospital on above:Order Comment: Specimen Type: BLOOD SPECIMENOrdering Facility: [facility] Address:[address] [place], [place] [address]Performed By: #### 66870-6, 1987-08 ####[facility] LABCLIA [id number] [facility] PHOENIXLID AVENUEVENCOR HOSPITALK [address] [address] [place] AMERICAChloride [Moles/Vol]104 mmol/OZwbqmk85-488WkkmudpgdSelect Medical Specialty [facility] Comment on above:Order Comment: Specimen Type: BLOOD SPECIMENOrdering Facility: [facility] Address:[address] [place], [place] [address] Performed By: #### 02429-9, 1987-08 ####[facility] LABCL[facility] [id number] [place] [address] [place] CO2 [Moles/Vol]27 mmol/ENobqch82-88LkrvvfrypKettering Memorial Hospital on above: Order Comment: Specimen Type: BLOOD SPECIMENOrdering Facility: [facility] Address:[address] [place], [place] [address]Performed By: #### 71964- 8, 1987-08 ####[facility] LABCL[facility] [id number] [facility] PHOENIXLID AV ENST[address] [place] [address] [place] AMERICACreatinine [Mass/Vol] 0.69 mg/dLNormal0.58-0.96[facility] SouthComascension macomb[facility] on above:Order Comment: Specimen Type: BLOOD SPECIMENOrdering Facility: [facility] Address:[address] [place], [place] [address]Performed By: #### 83459- 8, 1987-08 ####[facility] LABCL[facility] [id number] [facility] [place] [address] [place] AMERICACreatinine and Glomerular filtration rate.predicted panel (S/P/Bld)101 mL/min/1.73m???Normal >=60[facility] on above:Order Comment: Specimen Type: BLOOD SPECIMENOrdering Facility: [facility] Address:[address] [place], [place] [address]Result Comment: Estimated Glomerular Filtration Rate (eGFR) is calculated using the 2020 CKD-EPI creatinine equation. This equation utilizes serum creatinine, sex, and age as parameters. The creatinine assay has traceable calibration to isotope dilution-mass spectrometry. Refer to KDIGO guidelines for clinical interpretation. In patients with unstable renal function, e.g. those with acute kidney injury, the eGFR may not accurately reflect actual GFR.Performed By: #### 10549-3, 1987-08 ####[facility] LABCL[facility] [id number] [place] [address] [place] AMERICAGlucose [Mass/Vol]106 mg/mAAldj99-20VrpvmiiivSelect Medical Specialty [facility] Comment on above:Order Comment: Specimen Type: BLOOD SPECIMENOrdering Facility: [facility] Address:[address] [place], [place] [address]Result Comment: The [place] Diabetes Association (ADA) provides guidance for cutoff [...] Standards of Medical Care in Diabetes 2016, [place] Diabetes Association. Diabetes Care. 2016.39(Suppl 1).Performed By: #### 66942-1, 1987-08 ####[facility] LABIA [id number] [place] [id number] [place] AMERICAPotassium [Moles/Vol]4.1 mmol/L Normal3.7-5.1CUniversity Hospitals Elyria Medical CenterComment on above:Order Comment: Specimen Type: BLOOD SPECIMENOrdering Facility: [facility] Address:[address] [place], [place] [address]Performed By: #### 08782-1, 1987-08 ####[facility] LABIA [id number] [place] [address] [place] AMERICAProtein [Mass/Vol]6.8 g/dLNormal6.3-8.0[facility] [facility] SouthComment on above:Order Comment: Specimen Type: BLOOD SPECIMENOrdering Facility: [facility] Address:[address] [place], [place] [address]Performed By: #### 58806-1, 1987-08 ####[facility] [id number] [place] [address] [place] AMERICASodium [Moles/Vol]143 mmol/DVuxypv095-115VfuunqoamSelect Medical Specialty Hospital - [facility] SouthComascension [facility] on above:Order Comment: Specimen Type: BLOOD SPECIMENOrdering Facility: [facility] Address:[address] [place], [place] [address]Performed By: #### 32959-7, 1987-08 ####[facility] [id number] [place] [address] [place] AMERICAUrea nitrogen [Mass/Vol]17 mg/dLNormal7-21[facility] Comment on above:Order Comment: Specimen Type: BLOOD SPECIMENOrdering Facility: [facility] Address:[address] [place] [address] Performed By: #### 42000-8, 1987-08 ####[facility] [id number] [place] [address] [place] Eosinophils/100 WBC Auto (Bld)on 01-99-7729Zipkmaemglo/100 WBC (Bld)Automated eosinophil %[facility] CenterErythrocyte distribution width Auto (RBC) [Ratio]on 30-48-2251Ycaldyzogge distribution width (RBC) [Ratio] Erythrocyte distribution width [Ratio] by Automated count11.5-15.0[facility] Medical CenterHematocrit Auto (Bld) [Volume fraction]on 04-10-2024 Hematocrit (Bld) [Volume fraction]Hematocrit [Volume Fraction] of Blood by Automated count36.0-46.0[facility] CenterHemoglobin [Mass/volume] in Bloodon 14-46-0661Eohowjfbkn (Bld) [Mass/Vol]Hemoglobin [Mass/volume] in Blood11.5-15.5FPremier Health Miami Valley Hospital NorthLaboratory - Chemistry and Chemistry - challengeon 27-73-2180Ijmjcvh [Mass/Vol]4.0 g/dL 3.9-4.9[facility] CenterALP [Catalytic activity/Vol]185 U/LHigh 34-123[facility] CenterALT [Catalytic activity/Vol]15 U/L7-38 [facility] CenterAST [Catalytic activity/Vol]19 U/L13-35 [facility] CenterBilirubin [Mass/Vol]0.3 mg/dL0.2-1.3FPremier Health Miami Valley Hospital NorthCalcium [Mass/Vol]9.6 mg/dL8.5-10.2FPremier Health Miami Valley Hospital NorthChloride [Moles/Vol]104 mmol/K31-437YpelpctviUniversity Hospitals Tripoint Medical CenterCO2 [Moles/Vol]27 mmol/P57-84GjaaycwjhUniversity Hospitals Tripoint Medical CenterCreatinine [Mass/Vol]0.69 mg/dL0.58-0.96[facility] CenterGlucose [Mass/Vol] 106 mg/yARqxx76-82KsvriwjyvUniversity Hospitals Tripoint Medical CenterComment on above:The [place] Diabetes Association (ADA) provides guidance for cutoff [...] diabetes.Reference: Standardsof Medical Care in Diabetes 2016, [place] Diabetes Association. Diabetes Care. 2016.39(Suppl 1). Potassium [Moles/Vol]4.1 mmol/L3.7-5.1FUniversity Hospitals Geauga Medical Centerodium [Moles/Vol]143 mmol/Y684-700VmdpgxwhhUniversity Hospitals Tripoint Medical CenterUrea nitrogen [Mass/Vol]17 mg/dL7-[facility] CenterLaboratory - Hematology and Cell countson 25-32-5871Mpfwejertmh (Bld) [#/Vol]0.11 10*3/uL<0.46[facility] CenterImmature granulocytes/100 WBC (Bld)0.4 %[facility] CenterLeukocytes [#/volume] corrected for nucleated erythrocytes in Blood by Automated counon 09-34-7941BPF corrected for nucl RBC Auto (Bld) [#/Vol]Leukocytes [#/volume] corrected for nucleated erythrocytes in Blood by Automated coun3.70-11.00[facility] CenterLymphocytes Auto (Bld) [#/Vol]on 88-68-7618Lzkibruqafo (Bld) [#/Vol]Lymphocytes [#/volume] in Blood by Automated count1.00-4.00[facility] Lymphocytes/100 WBC Auto (Bld)on 47-40-4115Hjvrszuixrq/100 WBC (Bld) Lymphocytes/100 leukocytes in Blood by Automated countSelect Medical Cleveland Clinic Rehabilitation Hospital, BeachwoodH Auto (RBC) [Entitic mass]on 15-39-0576XFF (RBC) [Entitic mass]MCH [Entitic mass] by Automated count26.0-34.0[facility] CenterMCHC Auto (RBC) [Mass/Vol]on 24-40-8479MJVV (RBC) [Mass/Vol]MCHC [Mass/volume] by Automated count30.5-36.0[facility] CenterMCV Auto (RBC) [Entitic vol]on 38-59-3265CMR (RBC) [Entitic vol]MCV [Entitic volume] by Automated count 80.0-100.0[facility] CenterMonocytes Auto (Bld) [#/Vol]on 54-01-1545Nscviusav (Bld) [#/Vol]Automated blood monocyte count<0.87[facility] CenterMonocytes/100 WBC Auto (Bld)on 55-53-7569Ukfsnnhdg/100 WBC (Bld)Automated monocyte %[facility] CenterNeutrophils Auto (Bld) [#/Vol]on 34-90-4680Wkggwpdhjrl (Bld) [#/Vol]Neutrophils [#/volume] in Blood by Automated count1.45-7.50[facility] Neutrophils/100 WBC Auto (Bld)on 31-20-5636Bivrrmowffk/100 WBC (Bld)Automated neutrophil %[facility] CenterNo Panel Informationon 04-10-2024 [facility] HospitalC-Reactive Protein, Quantitative<0.3 mg/dL<0.9[facility] CenterEstimated GFR (CKD-EPI)101 mL/min/1.73m???>=60[facility] CenterComment on above:Estimated Glomerular Filtration Rate [...] reflect actual GFR. Immature Granulocyte # (Auto)<0.03 k/uL<0.10[facility] Posaconazole Level2.8 ug/mL0.7-3.9[facility] CenterComment on above:Ranges are based on trough draw at steady-state concentration.Therapeutic: >0.9 ug/mLProphylactic: >0.6 ug/mLToxic: >3.9 ug/mLThe therapeutic, prophylactic, and toxic ranges were based on the 2016 Infectious Disease Society of [place]'s (IDSA) Clinical Practice Guidelines for the Management of Aspergillosis and Candidiasis and consultation from [facility]'s Department of InfectiousDisease.Reference ranges and high/low indicator flags are provided as general guidelines only. The treating physician must determine appropriate target levels/dosing based on the specific clinical situation.This test was developed, and its performance characteristics determined by the [facility] Department of Pathology and Laboratory Medicine. It has not been cleared or approved by the FDA.The [facility] Department of Pathology and Laboratory Medicine is regulated under CLIA as qualified to perform high- complexity testing. This test is used for clinical purposes. It should not be regarded as investigational or for research.Nucleated RBC Auto (Bld) [#/Vol]on 24-31-6163Zbvngdgfx RBC (Bld) [#/Vol]Nucleated erythrocytes [#/volume] in Blood by Automated count<0.01[facility] CenterNucleated erythrocytes [Presence] in Blood by Automated counton 02-90-8342Zgehdciiw RBC Auto Ql (Bld) Nucleated erythrocytes [Presence] in Blood by Automated countUniversity Hospitals Tripoint Medical CenterPOSACONAZOLE, SERUMon 28-22-2891Gzdgcodtyjdj [Mass/Vol]2.8 ug/mL Normal0.7-3.9CHarrison Community Hospital on above:Order Comment: Specimen Type: BLOOD SPECIMENOrdering Facility: [facility] Address:[address] [place], [place] [address]Result Comment: Ranges are based on trough draw at steady-state concentration. Therapeutic: >0.9 ug/mL Prophylactic: >0.6 ug/mL Toxic: >3.9 ug/mL The therapeutic, prophylactic, and toxic ranges were based on the 2016 Infectious Disease Society of [place]'s (IDSA) Clinical Practice Guidelines for the Management of Aspergillosis and Candidiasis and consultation from [facility]'s Department of Infectious Disease. Reference ranges and high/low indicator flags are provided as general guidelines only. The treatingphysician must determine appropriate target levels/dosing based on the specific clinical situation. This test was developed, and its performance characteristics determined by the [facility] Department of Pathology and Laboratory Medicine. It has not been cleared or approved by the FDA. The [facility] Department of Pathology and Laboratory Medicine is regulated under CLIA as qualified to perform high-complexity testing. This test is used for clinical purposes. It should not be regarded as investigational or for research.Performed By: #### POSACN ####[facility] LABCL[facility] [id number] [facility] [id number] [place] [address] [place] AMERICAPlatelet mean volume Auto (Bld) [Entitic vol]on 65-06-9682Erjtgjpc mean volume (Bld) [Entitic vol]Platelet mean volume [Entitic volume] in Blood by Automated count9.0-12.7FPremier Health Miami Valley Hospital NorthPlatelets Auto (Bld) [#/Vol]on 23-84-7976Wiqodjnwd (Bld) [#/Vol] Platelets [#/volume] in Blood by Automated ocnlp080-646MlxlosynpUniversity Hospitals Tripoint Medical CenterProtein [Mass/volume] in Serum or Plasmaon 51-02-4147Ktwxozs [Mass/Vol]Protein [Mass/volume] in Serum or Plasma6.3-8.0[facility] Medical CenterRBC Auto (Bld) [#/Vol]on 68-80-0493GPY (Bld) [#/Vol]Erythrocytes [#/volume] in Blood by Automated count3.90-5.20[facility] Serum or plasma anion gap determinationon 01-31-4882Bdiys gap [Moles/Vol]Serum or plasma anion gap determination8-15[facility] Medical CenterCNPNon 37-17-2961FRYWGshbdhoha (REMS31) CHIKIS TOBAR ([id number]) 1965 F Date Time Provider Department 04/04/24 NOEL DANIELS REMS31 During your visit today, we recorded the following information about you: Leonarda Rae 04/04/2024 4:21 PM Signed Patient [facility]; Last [facility] visit on 01/11/24. Ms. Tobar was supposed [...] okay to schedule her? Please advise. Sheree Montez RN 04/04/2024 5:00 PM Addendum Seen 01/11/24 for last injections [employer] is approved till 04/15/24 SPECIALTY [facility] [...] exam for internal medicine (more content not included)...NormalTrumbull Memorial Hospital 20-69-1001KSXKIqmllj Visit (NREUS2) CHIKIS TOBAR ([id number]) 1965 F Date Time Provider Department 03/21/24 11:00 AM REGGIE BUTLER NREUS2 During your visit today, we recorded the following information about you: Pulse Blood pressure 86/minute 135/54 Reggie Butler MD 03/21/2024 1:29 PM Signed [facility] - FOLLOW UP EVALUATION Kalli Simons MD [address] [place] [phone] Dear Kalli Simons MD: I had the [...] Dr. Rosado or myself in 3 months [place] immediate relief of muscle spasms that wore [...] Row Office Visit from 03/21/2024 in [facility] Visit from 11/29/2023 in [facility] T Score 39.8 34.9 [...] bradkinesia or tremor. Reflexe (more content not included)...NormalUniversity Hospitals [facility] SerPl-cCncon 04-35-9601EGX [Catalytic activity/Vol]159 U/DAyjr25-750SahjqdehyUniversity Hospitals Tripoint Medical CenterComment on above:Order Comment: Specimen Type: BLOOD SPECIMENOrdering Facility: [facility] Address:[address] [place], [place] [address]Performed By: #### 6768-6 ####[facility] LABCL[facility] [id number] [facility]TEPDPBNWBNRZI73[place]QQ[place] [address] [facility] CENTERCNOVon 24-38-2119DURVFgfdzd Visit ([facility]) CHIKIS TOBAR ([id number]) 1965 F Date Time Provider Department 03/18/24 9:00 AM SHELBI RAMOS [facility] During your visit today, we recorded [...] bowel in Jun 2023. She went to [facility], there was no bed in , transferred to [facility] for bowel obstruction. She had surgery (small [...] day 1 post op. Spasms recurred in rehab([facility]), she can move her feet/toes but could not ambulate, can take steps with parallel bars(L >R, has more difficulty with RLE). She was able to ambulate with platform walker upon discharge(02/15/24). She had home PT upon discharge but not enough hence lost what she has gained. She was in [place] [facility] on 02/07/24, had 'dizzy' - wavy [...] needed for pain. aspiri (more content not included)...NormalSelect Medical Specialty Hospital - [facility] SouthCholesterol in LDL Calc [Mass/Vol]on 58-20-4902Uohkunezgaz in LDL [Mass/Vol]Cholesterol in LDL [Mass/volume] in Serum or Plasma by calculation<100[facility] CenterComment on above:<100 mg/dL, Optimal 100-129 mg/dL, Near optimal/above optimal 130-159 mg/dL, Borderline high 160-189 mg/dL, High>189 mg/dL, Very highSecondary prevention optimal LDL Cholesterol levels are recom mended to be < 70 mg/dLCholesterol in VLDL Calc [Mass/Vol]on 03-18-2024 Cholesterol in VLDL [Mass/Vol]Cholesterol in VLDL [Mass/volume] in Serum or Plasma by calculation<30[facility] CenterCobalamin (Vitamin B12) [Mass/Vol]on 10-16-1178Cexwaijlejgbcl and review of laboratory resultsNormal [facility] Metab 2000 Pnl SerPlon 06-50-7302Mtfakqp [Mass/Vol]3.9 g/dL3.9-4.9[facility] CenterComment on above:Order Comment: Specimen Type: BLOOD SPECIMEN [facility] Address: [address] [place], [place] [address]Performed By: #### 3016-3, 41653-7, 14428-3 #### [facility] CLIA [id number] [address] [place] [address] [place] AMERICAALT [Catalytic activity/Vol]15 U/L7-38 [facility] CenterComment on above:Order Comment: Specimen Type: BLOOD SPECIMEN [facility] Address: [address] [place], [place] [address]Performed By: #### 3016-3, 50106-0, 58173-2 #### [facility] CLIA [id number] [place] [address] [place] AMERICAAST [Catalytic activity/Vol]18 U/L13-35 [facility] Medical CenterComment on above:Order Comment: Specimen Type: BLOOD SPECIMEN [facility] Address: [address] [place], [place] [address]Performed By: #### 3016-3, 46727-9, 64807-0 #### [facility] CLIA [id number] [address] [place] [address] [place] AMERICABilirubin [Mass/Vol]0.5 mg/dL0.2-1.3 [facility] CenterComment on above:Order Comment: Specimen Type: BLOOD SPECIMEN [facility] Address: [address] [place], [place] [address]Performed By: #### 3016-3, 15969-3, 45551-1 #### [facility] CLIA [id number] [address] [place] [address] [place] AMERICACalcium [Mass/Vol]9.0 mg/dL8.5-10.2 [facility] CenterComment on above:Order Comment: Specimen Type: BLOOD SPECIMEN [facility] Address: [address] [place], [place] [address]Svygjocby By: #### 3016-3, 42503-5, 55109-7 #### [facility] CLIA [id number] [address] [place] [address] [place] AMERICAChloride [Moles/Vol]100 mmol/L98-107 [facility] CenterComment on above:Order Comment: Specimen Type: BLOOD SPECIMEN [facility] Address: [address] [place] [address]Ytgjgkooi By: #### 3016-3, 54176-5, 53945-1 #### [facility] CLIA [id number] [address] [place] [address] [place] AMERICACO2 [Moles/Vol]31 mmol/FXqbp76-21 [facility] CenterComment on above:Order Comment: Specimen Type: BLOOD SPECIMEN [facility] Address: [address] [place] [address]Blhjjkgvz By: #### 3016-3, 69461-6, 77541-7 #### [facility] CLIA [id number] [address] [place] [address] [place] AMERICACreatinine [Mass/Vol]0.62 mg/dL0.58-0.96 [facility] CenterComment on above:Order Comment: Specimen Type: BLOOD SPECIMEN [facility] Address: [address] [place] [address]Pvchvhpwr By: #### 3016-3, 60010-1, 84037-0 #### [facility] CLIA [id number] [address] [place] [address] [place] AMERICAGlucose [Mass/Vol]203 mg/aFZvem44-35 [facility] CenterComment on above:Order Comment: Specimen Type: BLOOD SPECIMEN [facility] Address: [address] [place] [address]Nhzkab Comment: The [place] Diabetes Association (ADA) provides guidance for cutoff [...] Standards of Medical Care in Diabetes 2016, [place] Diabetes Association. Diabetes Care. 2016.39(Suppl 1).Performed By: #### 3016-3, 39334-9, 04826-6 #### [facility] CLIA [id number] [address] [place] [address] [place] AMERICAThe [place] Diabetes Association (ADA) provides guidance for cutoff [...] diabetes.Reference: Standardsof Medical Care in Diabetes 2016, [place] Diabetes Association. Diabetes Care. 2016.39(Suppl 1).Potassium [Moles/Vol]3.6 mmol/LLow 3.7-5.1FPremier Health Miami Valley Hospital NorthComment on above:Order Comment: Specimen Type: BLOOD SPECIMEN [facility] Address: [address] [place], [place] [address]Dlyhlafcu By: #### 3016-3, 79701-9, 57096-7 #### [facility] CLIA [id number] [address] [place] [address] [place] STATES OF AMERICASodium [Moles/Vol]141 mmol/R537-561 [facility] CenterComment on above:Order Comment: Specimen Type: BLOOD SPECIMEN [facility] Address: [address] [place], [place] [address]Xarbeqqep By: #### 3016-3, 86986-7, 20109-4 #### [facility] CLIA [id number] [address] [place] [address] [place] AMERICAUrea nitrogen [Mass/Vol]10 mg/dL7-21 [facility] CenterComment on above:Order Comment: Specimen Type: BLOOD SPECIMEN [facility] Address: [address] [place] [address]Xgcqofhtw By: #### 3016-3, 78596-8, 60565-9 #### [facility] CLIA [id number] [address] [place] [address] [place] AMERICAComprehensive metabolic 2000 panelon 36-07-7463LZS [Catalytic activity/Vol]147 U/JRpyn01-149Ppig HospitalComment on above:Order Comment: Specimen Type: BLOOD SPECIMEN [facility] Address: [address] [place] [address]Bphviltpg By: #### 3016-3, 68513-7, 14054-0 #### [facility] IA [id number] [address] [place] [address] [place] AMERICAAnion gap [Moles/Vol]10 mmol/LNormal8-15 [facility] HospitalComment on above:Order Comment: Specimen Type: BLOOD SPECIMEN [facility] Address: [address] [place], [place] [address]Performed By: #### 3016-3, 22806-0, 23817-0 #### [facility] CLIA [id number] [address] [place] [address] [place] AMERICACreatinine and Glomerular filtration rate.predicted panel (S/P/Bld)104 mL/min/1.73m???Normal>=60Cold [facility] HospitalComment on above:Order Comment: Specimen Type: BLOOD SPECIMEN [facility] Address: [address] [place], [place] [address]Result Comment: Estimated Glomerular Filtration Rate (eGFR) is [...] accurately reflect actual GFR.Performed By: #### 3016-3, 63219-2, 01186-1 #### [facility] CLIA [id number] [address] [place] [address] [place] AMERICAProtein [Mass/Vol]6.7 g/dLNormal6.3-8.0 [facility] HospitalComment on above:Order Comment: Specimen Type: BLOOD SPECIMEN [facility] Address: [address] [place], [place] [address]Performed By: #### 3016-3, 48557-2, 31548-7 #### [facility] CLIA [id number] [address] [place] [address] [place] AMERICAIMMUNOGLOBULINS,IGG,IGA,IGMon 03-18-2024 IgA [Mass/Vol]177 mg/sLTvsghs74-921Anqd HospitalComment on above:Order Comment: Specimen Type: BLOOD SPECIMENOrdering Facility: [facility] Address:[address] [place], [place] [address]Performed By: #### SERIMM ####[facility] LABCLIA [id number] [facility] [id number] [place] [address] [place] AMERICAIgG [Mass/Vol]745 mg/dLNormal 700-1600Avon HospitalComment on above:Order Comment: Specimen Type: BLOOD SPECIMENOrdering Facility: [facility] Address:[address] [place], [place] [address]Performed By: #### SERIMM ####[facility] LABCLIA [id number] [address] [address] [place] AMERICAIgM [Mass/Vol]101 mg/oCWuypkw89-429Rbkb HospitalComment on above:Order Comment: Specimen Type: BLOOD SPECIMENOrdering Facility: [facility] Address:[address] [place] [place], [place] [address]Performed By: #### SERIMM ####[facility] LABCLIA [id number] ALEJANDRO MANDUJANO H90WBRACJDSZELIZABETH VIL[place] [address] [place] AMERICAIgA [Mass/volume] in Serum or Plasmaon 58-19-5159WkG [Mass/Vol]IgA [Mass/volume] in Serum or Pqbxui85-598 [facility] CenterIgG [Mass/volume] in Serum or Plasmaon 50-80-4897AjX [Mass/Vol]IgG [Mass/volume] in Serum or Nqpupx037-9342VtuhcppukUniversity Hospitals Tripoint Medical CenterIgM [Mass/volume] in Serum or Plasmaon 77-87-2828SdN [Mass/Vol]IgM [Mass/volume] in Serum or Spzofl37-988SoyjeuonoUniversity Hospitals Tripoint Medical CenterImmunoglobulin light chains.kappa.free [Mass/volume] in Serumon 03-18-2024 Immunoglobulin light chains.kappa.free (S) [Mass/Vol]Immunoglobulin light chains.kappa.free [Mass/volume] in Serum3.3-19.4FPremier Health Miami Valley Hospital NorthComment on above:Rarely, increased serum free light chains levels may not be detected or accurately quantified due to prozone phenomenon or in high viscosity samples using this immunoturbidimetric assay. Correlation with other laboratory results and clinical findings is recommended. The [place] Free Light Chain was performed using the Binding Site Optilite immunoturbidimetric method. Result obtained with different assay methods or kits cannot be used interchangeably.Immunoglobulin light chains.kappa.free/Immunoglobulin light chains.lambda.free [Peyman 15-74-2512Ldewyonxkaouof light chains.kappa.free/Immunoglobulin light chains.lambda.free (S) [Mass ratio] Immunoglobulin light chains.kappa.free/Immunoglobulin light chains.lambda.free [Mass0.26-1.65[facility] Medical CenterImmunoglobulin light chains.lambda.free [Mass/volume] in Serum or Plasmaon 08-41-5449Jtsvtitoquvtws light chains.lambda.free [Mass/Vol]Immunoglobulin light chains.lambda.free [Mass/volume] in Serum or Plasma5.7-26.3FPremier Health Miami Valley Hospital NorthComment on above:Rarely, increased serum free light chains [...] or kits cannot be used interchangeably. KAPPA/MCDUFFIE,FREE,SERon 75-92-6122Nyedonbnyrxybn light chains.kappa.free (S) [Mass/Vol]13.5 mg/LNormal3.3-19.4Avon HospitalComment on above:Order Comment: Specimen Type: BLOOD SPECIMEN [facility] Address: [address] [place], [place] [address]Result Comment: Rarely, increased serum free light chains levels may not be detected or accurately quantified due to prozone phenomenon or in high viscosity samples using this immunoturbidimetric assay. Correlation with other laboratory results and clinical findings is recommended. The [place] Free Light Chain was performed using the Binding Site Optilite immunoturbidimetric method. Result obtained with different assay methods or kits cannot be used interchangeably.Performed By: #### KLFRS #### [facility] CLIA [id number] [address] [place] [address] [place] AMERICAImmunoglobulin light chains.kappa/Immunoglobulin light chains.lambda (S) [Mass ratio]1.30Normal 0.26-1.65Avon HospitalComment on above:Order Comment: Specimen Type: BLOOD SPECIMEN [facility] Address: [address] [place], [place] [address]Performed By: #### KLFRS #### [facility] CLIA [id number] [address] [place] [address] [place] AMERICAImmunoglobulin light chains.lambda.free [Mass/Vol]10.4 mg/LNormal5.7-26.3Avon HospitalComment on above:Order Comment: Specimen Type: BLOOD SPECIMEN [facility] Address: [address] [place], [place] [address]Result Comment: Rarely, increased serum free light chains [...] be used interchangeably.Performed By: #### KLFRS #### [facility] CLIA [id number] [address] [place], [place] [address]K [id number]ETLaboratory - Hematology and Cell countson 54-86-1827Uxjybnedyrv/100 WBC (Bld)0.0 %0.0-24.2FPremier Health Miami Valley Hospital NorthLipid 1996 Pnl SerPlon 43-87-8777Juxpyjjtldr [Mass/Vol]136 mg/dL <200[facility] Medical CenterComment on above:Order Comment: Specimen Type: BLOOD SPECIMENOrdering Facility: [facility] Address:[address] [place], [place] [address]Result Comment: <200 mg/dL, Desirable 200-239 mg/dL, Borderline high >239 mg/dL, HighPerformed By: #### 3016-3, 29141-3, 99372-4 ####[facility]ENTERIA [id number] [place] [address] [place] [facility]<200 mg/dL, Desirable 200-239 mg/dL, Borderline high>239 mg/dL, HighCholesterol in HDL [Mass/Vol]62 mg/dL>39[facility] Comment on above:Order Comment: Specimen Type: BLOOD SPECIMENOrdering Facility: [facility] Address:[address] [place], [place] [address]Uekngd Comment: 40-59 mg/dL, Acceptable >59 mg/dL, High: Negative risk factor for coronary heart disease <40 mg/dL, Low: Positive risk factor for coronary heart diseasePerformed By: #### 3016-3, 87741-2, 73988-0 ####[facility]ORYCLIA [id number] [place] [address] [place] QYJZQKZ38-81 mg/dL, Acceptable>59 mg/dL, High: Negative risk factor for coronary heart disease<40 mg/dL, Low: Positive risk factor for coronary heart diseaseTriglyceride [Mass/Vol]87 mg/dL<150[facility] CenterComment on above:Order Comment: Specimen Type: BLOOD SPECIMENOrdering Facility: [facility] Address:[address] [place], [place] [address]Iewtil Comment: <150 mg/dL, Normal 150-199 mg/dL, Borderline high 200-499 mg/dL, High >499 mg/dL, Very highPerformed By: #### 3016-3, 56474-5, 20766-4 ####[facility]ATORYCLIA [id number] [facility] [place] [address] [place]<150 mg/dL, Normal 150-199 mg/dL, Borderline high 200- 499 mg/dL, High>499 mg/dL, Very highLipid 1996 panelon 50-26-4220Bscdkkvtcqu in LDL [Mass/Vol]57 mg/dLNormal<100[facility] HospitalComment on above:Order Comment: Specimen Type: BLOOD SPECIMENOrdering Facility: [facility] Address:[address] [place] [address]Bviloa Comment: <100 mg/dL, Optimal 100-129 mg/dL, Near optimal/above optimal 130-159 mg/dL, Borderline high 160-189 mg/dL, High >189 mg/dL, Very high Secondary prevention optimal LDL Cholesterol levels are recommended to be < 70 mg/dLPerformed By: #### 3016-3, 19613-8, 10446-4 ####[facility]ORYCLIA [id number] [place] [address] [place] AMERICACholesterol in LDL/Cholesterol in HDL [Mass ratio]0.92 {ratio} Normal<2.54Avon HospitalComment on above:Order Comment: Specimen Type: BLOOD SPECIMENOrdering Facility: [facility] Address:[address] [place] [address]Mfuyka Comment: Reference: 1. National Cholesterol Education Program ATP III Guideline At-A-Glance Quick Desk Reference: National Heart, Lung, and Blood [place]. National Institutes of Health. 2001: NIH Publication No. 01-3305. 2. An International Atherosclerosis Society position paper: global recommendations for the management of dyslipidemia: executive summary, Atherosclerosis. 2014: 232(2):410-413.Performed By: #### 3016-3, 55491-5, 17379- ####[facility]ORYCLIA [id number] [place] [address] [place] AMERICACholesterol in VLDL [Mass/Vol]17 mg/dLNormal<30 [facility] HospitalComment on above:Order Comment: Specimen Type: BLOOD SPECIMENOrdering Facility: [facility] Address:[address] [place], [place] [address]Performed By: #### 3016-3, 68159-6, 34523-3 ####[facility]ATORYCLIA [id number] [place] [address] [place] AMERICACholesterol non HDL [Mass/Vol]74 mg/dLNormal<130[facility] Comment on above:Order Comment: Specimen Type: BLOOD SPECIMENOrdering Facility: [facility] Address:[address] [place], [place] [address]Result Comment: <130 mg/dL, Optimal 130-159 mg/dL, Near optimal/above optimal 160-189 mg/dL, Borderline high 190-219 mg/dL, High >219 mg/dL, Very high Secondary prevention optimal non HDL Cholesterol levels are recommended to be <100 mg/dLPerformed By: #### 3016-3, 61869-8, 77164-4 ####[facility]ATORYCLIA [id number] [place] [address] [place] AMERICACholesterol.total/Cholesterol in HDL [Mass ratio]2.19 {ratio} Normal<5.10Avon HospitalComment on above:Order Comment: Specimen Type: BLOOD SPECIMENOrdering Facility: [facility] Address:[address] [place], [place] [address]Performed By: #### 3016-3, 58068-1, 62889-7 ####[facility]ORYCLIA [id number] [place] [address] [place] AMERICAFASTING TIME13 hrsNormTeton Valley Hospitalvon Va HospitalComment on above:Order Comment: Specimen Type: BLOOD SPECIMENOrdering Facility: [facility] Address:[address] [place], [place] [address]Performed By: #### 3016- 3, 12707-4, 59175-8 ####[facility]ORYCLIA [id number] [place] [id number] [place] [facility] MED[facility] CENTERMethylmalonate SerPl-sCncon 29-90-2126Irsyfdmzvmqovv [Moles/Vol]0.20 umol/LNormal<=0.40[facility] HospitalComment on above:Order Comment: Specimen Type: BLOOD SPECIMENOrdering Facility: [facility] Address:[address] [place], [place] [address]Result Comment: This test was developed, and its performance characteristics determined by the [facility] Department of Pathology and Laboratory Medicine. It has not been cleared or approved bythe FDA. The [facility] Department of Pathology and Laboratory Medicine is regulated under CLIA as qualified to perform high-complexity testing. This test is used for clinical purposes. It should not be regarded as investigational or for research.Performed By: #### 89934-1 ####[facility] LABCLIA [id number] [address] STREETo Panel Informationon 90-65-5185Zqekf Monoclonal InterpretationUniversity Hospitals Tripoint Medical CenterUrine Monoclonal ProteinAbnormalNo M protein is identified.[facility] Medical CenterUrine Monoclonal Staff ReviewReviewed by Qian Hogan M.D.[facility] Medical CenterAlkaline Phosphatase Iso-Bone %22.8 %10.7-68.3FPremier Health Miami Valley Hospital NorthAlkaline Phosphatase Iso-Liver %77.2 %26.0-86.2FPremier Health Miami Valley Hospital NorthEstimated GFR (CKD-EPI)104 mL/min/1.73m???>=60[facility] Medical CenterComment on above:Estimated Glomerular Filtration Rate (eGFR) is calculated using the 2020 CKD-EPI creatinine equation. This equation utilizes serum creatinine, sex, and age as parameters. The creatinine assay has traceable calibration to isotope dilution-mass spectrometry. Refer to KDIGO guidelines for clinical interpretation. In patients with unstable renal function, e.g. those with acute kidney injury, the eGFRmay not accurately reflect actual GFR.Fasting Yxwmit32 hrsUniversity Hospitals Tripoint Medical Center Leuk/Lymph Sign Pathologist (Misc)Reviewed by Qian Hogan M.D.[facility] Medical CenterNon-HDL Yrdnqyjsnsj57 mg/dL<130[facility] Medical CenterComment on above:<130 mg/dL, Optimal 130-159 mg/dL, Near optimal/above optimal 160-189 mg/dL, Borderline high 190-219 mg/dL, High>219 mg/dL, Very highSecondary prevention optimal non HDL Cholesterol levels are recommended to be <100 mg/dLPosaconazole Level2.5 ug/mL0.7-3.9[facility] Comment on above:Ranges are based on trough draw at steady-state concentration.Therapeutic: >0.9 ug/mLProphylactic: >0.6 ug/mLToxic: >3.9 ug/mLThe therapeutic, prophylactic, and toxic ranges were based on the 2016 Infectious Disease Society of [place]'s (IDSA) Clinical Practice Guidelines for the Management of Aspergillosis and Candidiasis and consultation from [facility]'s Department of InfectiousDisease.Reference ranges and high/low indicator flags are provided as general guidelines only. The treating physician must determine appropriate target levels/dosing based on the specific clinical sit uation.This test was developed, and its performance characteristics determined by the [facility] Department of Pathology and Laboratory Medicine. It has not been cleared or approved by the FDA.The [facility] Department of Pathology and Laboratory Medicine is regulated under CLIA as qualified to perform high-complexity testing. This test is used for clinical purposes. It should not beregarded as investigational or for research.Serum ImmunofixationNo M protein is identified.No M protein is identified.[facility] Tri[facility] Medical CenterPOSACONAZOLE, SERUMon 46-57-4770Bdckufdhvohm [Mass/Vol]2.5 ug/mLNormal 0.7-3.9Avon HospitalComment on above:Order Comment: Specimen Type: BLOOD SPECIMENOrdering Facility: [facility] Address:[address] [place] [id number] Comment: Ranges are based on trough draw at steady- state concentration. Therapeutic: >0.9 ug/mL Prophylactic: >0.6 ug/mL Toxic: >3.9 ug/mL The therapeutic, prophylactic, and toxic ranges were based on the 2016 Infectious Disease Society of [place]'s (IDSA) Clinical Practice Guidelines for the Management of Aspergillosis and Candidiasis and consultation from [facility]'s Department of Infectious Disease. Reference ranges and high/low indicator flags are provided as general guidelines only. The treatingphysician must determine appropriate target levels/dosing based on the specific clinical situation. This test was developed, and its performance characteristics determined by the [facility] Department of Pathology and Laboratory Medicine. It has not been cleared or approved by the FDA. The [facility] Department of Pathology and Laboratory Medicine is regulated under CLIA as qualified to perform high-complexity testing. This test is used for clinical purposes. It should not be regarded as investigational or for research.Performed By: #### POSACN ####[facility] LABCLIA [id number] [place] [id number] [place] AMERICAProtein [Mass/volume] in Serum or Plasmaon 25-25-3462Rrmpiqw [Mass/Vol]Protein [Mass/volume] in Serum or Plasma 6.3-8.0[facility] Hospitalerum or plasma anion gap determination on 02-10-7458Sewei gap [Moles/Vol]Serum or plasma anion gap determination8-15 [facility] Hospitalerum or plasma bone alkaline phosphatase/total alkaline phosphatase ratioon 39-54-9177ONZ Bone [Catalytic fraction]Serum or plasma bone alkaline phosphatase/total alkaline phosphatase ratio12.9-52.6 [facility] Hospitalerum or plasma intestinal alkaline phosphatase/total alkaline phosphatase ratio (mega 84-16-2425NWG Intest [Catalytic fraction]Serum or plasma intestinal alkaline phosphatase/total alkaline phosphatase ratio (cat0.0-16.3FUniversity Hospitals Geauga Medical Centererum or plasma methylmalonate measurement (moles/volume)on 55-23-8548Fijprdxzmvdcfj [Moles/Vol]Serum or plasma methylmalonate measurement (moles/volume)<=0.40 [facility] CenterComment on above:This test was developed, and its performance characteristics determined by the [facility] Department of Pathology and Laboratory Medicine. It has not been cleared or approved by the FDA. The [facility] Department of Pathology and Laboratory Medicine is regulated under CLIA as qualified to perform high-complexity testing. This test is used for clinical purposes. It should not be regarded as investigational or for research.Serum or plasma total cholesterol/high density lipoprotein (HDL) cholesterol mass kuldip 24-59-6226Oolxbzbsogh.total/Cholesterol in HDL [Mass ratio]Serum or plasma total cholesterol/high density lipoprotein (HDL) cholesterol mass rat<5.10[facility] Medical CenterTSH SerPl-aCncon 13-10-9694ZIK Qn1.110 m[IU]/L0.270-4.200[facility] Medical CenterComment on above:Order Comment: Specimen Type: BLOOD SPECIMEN [facility] Address: [address] [place], [place] [address]Performed By: #### 3016-3, 02582-4, 18591-9 #### [facility] CLIA [id number] [address] [place] [address] [place] AMERICATotal alkaline phosphatase measurement with isoenzyme panelon 36-90-0223TFQ Iso PnlTotal alkaline phosphatase measurement with isoenzyme yyagaDehz70.0-69.3FPremier Health Miami Valley Hospital North VITAMIN B12on 43-87-9446Aopgpgakl (Vitamin B12) [Mass/Vol]555 pg/mL232 - 1245 pg/mLCleveland ClinicVit B12 SerPl-mCncon 66-76-1745Cjtigxtmg (Vitamin B12) [Mass/Vol]555 pg/kW279-6992FrowdeizcUniversity Hospitals Tripoint Medical CenterComment on above: Order Comment: Specimen Type: BLOOD SPECIMEN [facility] Address: [address] [place], [place] [address]Performed By: #### 2132-9 #### [facility] CLIA [id number] [address] [place] [address] [place] AMERICABasophils Auto (Bld) [#/Vol]on 03-05-2024 Basophils (Bld) [#/Vol]Automated basophil count0.0-0.1FPremier Health Miami Valley Hospital NorthBasophils/100 WBC Auto (Bld)on 93-55-6923Gvcgrvlum/100 WBC (Bld)Automated basophil %0.2-2.0[facility] Medical CenterEosinophils/100 WBC Auto (Bld)on 47-08-2827Bxfmqgdzwce/100 WBC (Bld)Automated eosinophil %0.9-7.0 [facility] CenterErythrocyte distribution width Auto (RBC) [Ratio]on 99-31-6608Zcdqbowoflx distribution width (RBC) [Ratio]Erythrocyte distribution width [Ratio] by Automated count11.0-15.0[facility] CenterEstimated glomerular filtration rate (GFR) non- Americanon 02-42-8306XGN/1.73 sq M.predicted among non-blacks MDRD (S/P/Bld) [Vol rate/Area]Estimated glomerular filtration rate (GFR) non->=60 mL/min/1.73m 2FPremier Health Miami Valley Hospital NorthGlobulin Calc (S) [Mass/Vol]on 18-12-3968Ybjqblxv (S) [Mass/Vol]Serum globulin measurement by calculation (mass/volume)[facility] Medical CenterHematocrit Auto (Bld) [Volume fraction]on 38-41-3366Imjbrpzpmi (Bld) [Volume fraction]Hematocrit [Volume Fraction] of Blood by Automated bjndyAal29.0-48.0[facility] Medical CenterHemoglobin [Mass/volume] in Bloodon 72-57-7594Sugrfxzsta (Bld) [Mass/Vol] Hemoglobin [Mass/volume] in XfjscWhh12.0-16.0[facility] Laboratory - Chemistry and Chemistry - challengeon 85-88-1247Egmagsj [Mass/Vol] 3.1 g/dLLow3.4-5.0[facility] Medical CenterALP [Catalytic activity/Vol] 111 U/R84-293FrdcqzzcrUniversity Hospitals Tripoint Medical CenterALT [Catalytic activity/Vol]25 U/L 14-59[facility] CenterAST [Catalytic activity/Vol]22 U/L15-37 [facility] Medical CenterBilirubin [Mass/Vol]0.3 mg/dL0.2-1.0[facility] CenterCalcium [Mass/Vol]8.9 mg/dL8.5-10.1FPremier Health Miami Valley Hospital NorthChloride [Moles/Vol]107 mmol/U05-020KastbppfiUniversity Hospitals Tripoint Medical CenterCO2 [Moles/Vol]32.5 mmol/LHigh21.0-32.0[facility] Creatinine [Mass/Vol]0.74 mg/dL0.55-1.02[facility] GFR/1.73 sq M.predicted MDRD (S/P/Bld) [Vol rate/Area]mL/min/{1.73_m2}>=60 mL/min/1.73m 2FPremier Health Miami Valley Hospital NorthGlucose [Mass/Vol]76 mg/mS28-480 [facility] CenterNatriuretic peptide B (Bld) [Mass/Vol]189.0 pg/mL<=900.0[facility] Medical CenterPotassium [Moles/Vol]3.8 mmol/L 3.5-5.1FPremier Health Miami Valley Hospital NorthProtein [Mass/Vol]6.3 g/dLLow6.4-8.2 [facility] Hospitalodium [Moles/Vol]147 mmol/QFtwg423-281 [facility] CenterUrea nitrogen [Mass/Vol]20.0 mg/dLHigh7.0-18.0 [facility] CenterUrea nitrogen/Creatinine [Mass ratio]27.0 mg/mg [facility] CenterLaboratory - Hematology and Cell countson 38-97-6482Vcyouudq granulocytes/100 WBC (Bld)0.2 %0.0-0.5FPremier Health Miami Valley Hospital NorthLeukocytes [#/volume] corrected for nucleated erythrocytes in Blood by Automated counon 43-22-9991PFU corrected for nucl RBC Auto (Bld) [#/Vol]Leukocytes [#/volume] corrected for nucleated erythrocytes in Blood by Automated coun4.0-11.0[facility] Medical CenterLymphocytes Auto (Bld) [#/Vol]on 93-85-9317Wyjkpdcvsff (Bld) [#/Vol]Lymphocytes [#/volume] in Blood by Automated countLow1.2-3.8[facility] Medical CenterLymphocytes/100 WBC Auto (Bld)on 74-79-2520Hikdvudhzjd/100 WBC (Bld)Lymphocytes/100 leukocytes in Blood by Automated kajogLqi99.5-60.0[facility], BeachwoodH Auto (RBC) [Entitic mass]on 50-88-9679OIU (RBC) [Entitic mass]MCH [Entitic mass] by Automated count26.7-34.0[facility] Medical CenterMCHC Auto (RBC) [Mass/Vol]on 79-88-2701BVLZ (RBC) [Mass/Vol]MCHC [Mass/volume] by Automated count29.9-35.2FPremier Health Miami Valley Hospital NorthMCV Auto (RBC) [Entitic vol]on 57-65-4322DUL (RBC) [Entitic vol]MCV [Entitic volume] by Automated count 81.0-99.0[facility] Medical CenterMonocytes Auto (Bld) [#/Vol]on 77-49-5099Ofhtlkitj (Bld) [#/Vol]Automated blood monocyte count0.3-0.8[facility] Medical CenterMonocytes/100 WBC Auto (Bld)on 84-05-9042Mvytgbbbt/100 WBC (Bld)Automated monocyte %1.7-12.0[facility] Neutrophils Auto (Bld) [#/Vol]on 52-05-9677Kvdjwblkohh (Bld) [#/Vol]Neutrophils [#/volume] in Blood by Automated count1.4-6.5FPremier Health Miami Valley Hospital North Neutrophils/100 WBC Auto (Bld)on 91-62-3157Cpykypevxlc/100 WBC (Bld)Automated neutrophil %43.0-75.0[facility] CenterNo Panel Informationon 69-97-2325Gwzkwhluesf # (Auto)0.1 10 3/uL0.0-0.7FPremier Health Miami Valley Hospital NorthImmature Granulocyte # (Auto)0.01 10 3/uL0.00-0.03[facility] Medical CenterPlatelet mean volume Auto (Bld) [Entitic vol]on 31-59-2101Qswcpdfl mean volume (Bld) [Entitic vol]Platelet mean volume [Entitic volume] in Blood by Automated countLow9.5-13.5FPremier Health Miami Valley Hospital NorthPlatelets Auto (Bld) [#/Vol]on 92-55-0678Woeuxrszi (Bld) [#/Vol]Platelets [#/volume] in Blood by Automated oynht370-743VkdbbzwoqUniversity Hospitals Tripoint Medical CenterRBC Auto (Bld) [#/Vol]on 04-80-8880PJE (Bld) [#/Vol]Erythrocytes [#/volume] in Blood by Automated count Low4.20-5.40[facility] Hospitalerum or plasma albumin/globulin mass ratioon 16-29-3756Dumqctt/Globulin [Mass ratio]Serum or plasma albumin/globulin mass ratioAdams County Hospitalerum or plasma anion gap determinationon 01-79-0298Mljnd gap [Moles/Vol]Serum or plasma anion gap determinationSheltering Arms Hospital NOTEon 72-30-3828AZ NOTEHNO ID: [id number] Author: TERI ROSS RN Service: ? Author Type: Registered Nurse Type: ED Notes Filed: 02/08/2024 04:28 Note Text: Report given to MM.. Pt stable and [facility] in stret[facility] HospitalED NOTEHNO ID: [id number] Author: TERI ROSS RN Service: ? Author Type: Registered Nurse Type: ED Notes Filed: 02/08/2024 03:08 Note Text: Report called back to facility. Updated nurse of transport eta.NormalUniversity Of Utah HospitalHIGH SENSITIVITY TROPONIN T (SECOND)on 02-67-1143Bzszdkfi T.cardiac High sensitivity method [Mass/Vol]12 ng/LHigh<12Avon HospitalComment on above:Order Comment: Specimen Type: BLOOD SPECIMEN [facility] Address: [address] [place], [place] [address]Assgenpcx By: #### [id number] #### [facility] CLIA [id number] [address] [place] [address] [place] [facility] MEDICAL CENTERHIGH SENSITIVITY TROPONIN T (THIRD) 3 HRS AFTER INITIALon 64-59-7774Hkntudnj T.cardiac High sensitivity method [Mass/Vol] 12 ng/LHigh<12Avon HospitalComment on above:Order Comment: Specimen Type: BLOOD SPECIMENOrdering Facility: [facility] Address:[address] [place], [place] [address]Performed By: #### [id number] ####[facility]ATORYIA [id number] [place] [address] [place] AMERICANo Panel Informationon 35-58-4938Hrjteezi T Hi Sens Cardiac Aadfyweq83 ng/LHigh<12 [facility] Medical CenterBasophils Auto (Bld) [#/Vol]on 02-07-2024 Basophils (Bld) [#/Vol]Automated basophil count<0.11[facility] CenterBasophils/100 WBC Auto (Bld)on 77-33-5942Uwsaucsac/100 WBC (Bld)Automated basophil %[facility] CenterBlood manual differential comment interpretation narrativeon 52-81-1227Kkuifx differential comment Reymundo (Bld) [Interp]Blood manual differential comment interpretation narrativeUniversity Hospitals Tripoint Medical CenterCBC W Auto Differential panel (Bld)on 60-29-7708Ldywimnrk (Bld) [#/Vol]0.04 10*3/uLNormal<0.11Avon HospitalComment on above:Order Comment: Specimen Type: BLOOD SPECIMENOrdering Facility: [facility] Address:[address] [place], [place] [address]Performed By: #### 82875- 8 ####[facility] CENTERIA [id number] [place] [address] [place] AMERICABasophils/100 WBC (Bld)0.8 %[facility] Comment on above:Order Comment: Specimen Type: BLOOD SPECIMENOrdering Facility: [facility] Address:[address] [place] [address] Performed By: #### 86310-6 ####[facility]ENTERIA [id number] [place] [address] [place] AMERICADifferential cell count method Nom (Bld)AutoNormalAvon HospitalComment on above:Order Comment: Specimen Type: BLOOD SPECIMENOrdering Facility: [facility] Address:[address] [place], [place] [address]Performed By: #### 58487-5 ####[facility]ATORYIA [id number] [place] [address] [place] AMERICAEosinophils (Bld) [#/Vol]0.11 10*3/uLNormal<0.46Av HospitalComment on above:Order Comment: Specimen Type: BLOOD SPECIMENOrdering Facility: [facility] Address:[address] [place], [place] [address]Performed By: #### 25436-1 ####[facility] CENTERIA [id number] [place] [address] [place] AMERICAEosinophils/100 WBC (Bld)2.3 %NormalAv HospitalComment on above:Order Comment: Specimen Type: BLOOD SPECIMENOrdering Facility: [facility] Address:[address] [place], [place] [address]Performed By: #### 13214-1 ####[facility] CENTERIA [id number] [place] [address] [place] AMERICAErythrocyte distribution width (RBC) [Ratio]16.1 %High11.5-15.0 [facility] HospitalComment on above:Order Comment: Specimen Type: BLOOD SPECIMENOrdering Facility: [facility] Address:[address] [place], [place] [address]Performed By: #### 42117-6 ####[facility]ENTERIA [id number] [place] [address] [place] Hematocrit (Bld) [Volume fraction]39.2 %Gmxluk57.0-46.0[facility] HospitalComment on above:Order Comment: Specimen Type: BLOOD SPECIMENOrdering Facility: [facility] Address:[address] [place], [place] [address]Performed By: #### 73541-5 ####[facility]ENTERIA [id number] [place] [address] [place] AMERICAHemoglobin (Bld) [Mass/Vol]12.5 g/dL Cxfkso46.5-15.5Avon HospitalComment on above:Order Comment: Specimen Type: BLOOD SPECIMENOrdering Facility: [facility] Address:[address] [place], [place] [address]Performed By: #### 73990-9 ####[facility]ENTERIA [id number] [place] [address] [place] Immature granulocytes (Bld) [#/Vol]0.03 10*3/uLNormal<0.10Avon HospitalComment on above:Order Comment: Specimen Type: BLOOD SPECIMENOrdering Facility: [facility] Address:[address] [place] [address] Performed By: #### 44849-1 ####[facility] CENTERIA [id number] [place] [address] [place] OF AMERICAImmature granulocytes/100 WBC (Bld)0.6 %NormalAv HospitalComment on above:Order Comment: Specimen Type: BLOOD SPECIMENOrdering Facility: [facility] Address:[address] [place], [place] [address]Performed By: #### 44500- 8 ####[facility] CENTERIA [id number] [place] [id number] [place] OF AMERICALymphocytes (Bld) [#/Vol]1.37 10*3/uLNormal 1.00-4.00Avon HospitalComment on above:Order Comment: Specimen Type: BLOOD SPECIMENOrdering Facility: [facility] Address:[address] [place], [place] [address]Performed By: #### 19121-9 ####[facility] CENTERIA [id number] [place] [address] [place] Lymphocytes/100 WBC (Bld)28.8 %NormalAv HospitalComment on above:Order Comment: Specimen Type: BLOOD SPECIMENOrdering Facility: [facility] Address:[address] [place], [place] [address]Performed By: #### 67153- 8 ####[facility]ATORYIA [id number] [place] [address] [facility] (RBC) [Entitic mass]29.6 imNdhosh34.0-34.0 [facility] Bay HospitalComment on above:Order Comment: Specimen Type: BLOOD SPECIMENOrdering Facility: [facility] Address:[address] [place], [place] [address]Performed By: #### 59770-9 ####[facility]ORATORYCLIA [id number] [place] [address] [place] MCHC (RBC) [Mass/Vol]31.9 g/yEWgyxrp65.5-36.0Cold Bay HospitalComment on above:Order Comment: Specimen Type: BLOOD SPECIMENOrdering Facility: [facility] Address:[address] [place], [place] [address]Performed By: #### 22640- 8 ####[facility]ENTERIA [id number] [place] [address] [facility]ERV (RBC) [Entitic vol]92.9 yGSvwqtx34.0-100.0 [facility] Bay HospitalComment on above:Order Comment: Specimen Type: BLOOD SPECIMENOrdering Facility: [facility] Address:[address] [place], [place] [address]Performed By: #### 60783-4 ####[facility] [id number] [place] [address] [place] Monocytes (Bld) [#/Vol]0.55 10*3/uLNormal<0.87Av HospitalComment on above: Order Comment: Specimen Type: BLOOD SPECIMENOrdering Facility: [facility] Address:[address] [place], [place] [address]Performed By: #### 45226- 8 ####[facility]ENTERIA [id number] [place] [id number] [facility]OSPITALMonocytes/100 WBC (Bld)11.6 %NormalAv HospitalComment on above:Order Comment: Specimen Type: BLOOD SPECIMENOrdering Facility: [facility] Address:[address] [place], [place] [address]Performed By: #### 75923-5 ####[facility]ORATORYIA [id number] [place] [address] [place] AMERICANeutrophils (Bld) [#/Vol]2.65 10*3/uLNormal1.45-7.50Avon HospitalComment on above:Order Comment: Specimen Type: BLOOD SPECIMENOrdering Facility: [facility] Address:[address] [place], [place] [address]Performed By: #### 73976-1 ####[facility]ENTERIA [id number] [place] [address] [place] AMERICANeutrophils/100 WBC (Bld)55.9 %NormalAv Hospital Comment on above:Order Comment: Specimen Type: BLOOD SPECIMENOrdering Facility: [facility] Address:[address] [place] [address] Performed By: #### 43837-7 ####[facility] [id number] [place] [address] [place] AMERICANucleated RBC (Bld) [#/Vol]10*3/uLNormal<0.01Av HospitalComment on above:Order Comment: Specimen Type: BLOOD SPECIMENOrdering Facility: [facility] Address:[address] [place], [place] [address]Performed By: #### 83759-9 ####[facility]ENTERIA [id number] [place] [address] [place] AMERICANucleated RBC/100 WBC (Bld) [Ratio]0.0 /100 WBCNormalAvon HospitalComment on above:Order Comment: Specimen Type: BLOOD SPECIMENOrdering Facility: [facility] Address:[address] [place], [place] [address]Performed By: #### 29713-7 ####[facility]ENTERIA [id number] [place] [address] [place] AMERICAPlatelet mean volume (Bld) [Entitic vol]9.0 fLNormal9.0-12.7Avon HospitalComment on above: Order Comment: Specimen Type: BLOOD SPECIMENOrdering Facility: [facility] Address:[address] [place] [address]Lpgqqhxlv By: #### 17984- 8 ####[facility] LABORATORYCLIA [id number] [place] [address] [facility]OSPITALPlatebrigham and women[facility] (d) [#/Vol]274 10*3/mTIcjdgh118-865 [facility] Bay HospitalComment on above:Order Comment: Specimen Type: BLOOD SPECIMENOrdering Facility: [facility] Address:[address] [place], [place] [address]Performed By: #### 19010-7 ####[facility]ENTERIA [id number] [place] [address] [facility] ([facility]) [#/Vol]4.22 10*6/uLNormal3.90-5.20Cold Bay HospitalComment on above:Order Comment: Specimen Type: BLOOD SPECIMENOrdering Facility: [facility] Address:[address] [place], [place] [address]Performed By: #### 85953- 8 ####[facility] CENTERIA [id number] [place] [address] [facility] ([facility]) [#/Vol]4.75 10*3/uLNormal3.70-11.00 [facility] Bay HospitalComment on above:Order Comment: Specimen Type: BLOOD SPECIMENOrdering Facility: [facility] Address:[address] [place], [place] [address]Performed By: #### 48640-1 ####[facility] LABORATORYIA [id number] [place] [address] [facility]OSPITALCT BRAIN WO IVCONon 84-03-4784JT BRAIN WO IVCON* * *Final Report* * * DATE OF EXAM: Feb 07 2024 11:42PM [facility] 0504 - CT BRAIN WO IVCON [...] seen. The skull base shows some osteopenia. Automotive Drivability Technician (topogram) images: Non-diagnostic. IMPRESSION: Brain CT shows no evidence of acute intracranial bleeding or of a sizable/large acute brain parenchymal abnormality. Shunted ventricles with interval significant size reduction, now with areas of slitlike appearance (which should be correlated clinically to exclude over shunting). No hydrocephalus. Mild chronic brain parenchymal changes and other details as above. Printed Circuit Board Assembler: SUMA Transcribe Date/Time: Feb 08 2024 1:06A Dictated by : ADELINA VILLA MD This examination was interpreted and the report reviewed and electronically signed by: ADELINA VILLA MD on Feb 08 2024 1:13AM EST [id number] Medical CenterComprehensive metabolic 2000 panelon 05-60-0247Fnsehdp [Mass/Vol]4.1 g/dLNormal3.9-4.9Avon HospitalComment on above: Order Comment: Specimen Type: BLOOD SPECIMEN [facility] Address: [address] [place], [place] [address]Performed By: #### 78063-1, 89144-7 #### [facility] CLIA [id number] [address] [place] [address] [place] AMERICAALP [Catalytic activity/Vol]141 U/LHigh 34-123Av HospitalComment on above:Order Comment: Specimen Type: BLOOD SPECIMEN [facility] Address: [address] [place], [place] [address]Performed By: #### 13577-3, 03107-7 #### [facility] CLIA [id number] [address] [place] [address] [place] AMERICAALT [Catalytic activity/Vol]19 U/LNormal 7-38Av HospitalComment on above:Order Comment: Specimen Type: BLOOD SPECIMEN [facility] Address: [address] [place], [place] [address]Performed By: #### 41580-8, 20132-1 #### [facility] CLIA [id number] [address] [place] [address] [place] AMERICAAnion gap [Moles/Vol]9 mmol/LNormal8-15 [facility] Bay HospitalComment on above:Order Comment: Specimen Type: BLOOD SPECIMEN [facility] Address: [address] [place], [place] [address]Performed By: #### 73903-2, #### [facility] CLIA [id number] [address] [place] [address] [place] AMERICAAST [Catalytic activity/Vol]14 U/LNormal 13-35Av HospitalComment on above:Order Comment: Specimen Type: BLOOD SPECIMEN [facility] Address: [address] [place], [place] [address]Performed By: #### 96115-5, #### [facility] CLIA [id number] [address] [place] [address] [place] AMERICABilirubin [Mass/Vol]0.2 mg/dLNormal 0.2-1.3Avo HospitalComment on above:Order Comment: Specimen Type: BLOOD SPECIMEN [facility] Address: [address] [place], [place] [address]Performed By: #### 19457-1, #### [facility] CLIA [id number] [address] [place] [address] [place] AMERICACalcium [Mass/Vol]9.5 mg/dLNormal8.5-10.2 [facility] Bay HospitalComment on above:Order Comment: Specimen Type: BLOOD SPECIMEN [facility] Address: [address] [place] [address]Lvuushjzh By: #### 63007-7, #### [facility] CLIA [id number] [address] [place] [address] [place] AMERICAChloride [Moles/Vol]104 mmol/LNormal 98-107Av HospitalComment on above:Order Comment: Specimen Type: BLOOD SPECIMEN [facility] Address: [address] [place], [place] [address]Performed By: #### 24811-4, #### [facility] CLIA [id number] [address] [place] [address] [place] AMERICACO2 [Moles/Vol]30 mmol/DAgzvny82-42Fnoa HospitalComment on above:Order Comment: Specimen Type: BLOOD SPECIMEN [facility] Address: [address] [place], [place] [address]Performed By: #### 11308-3, #### [facility] CLIA [id number] [address] [place] [address] [place] AMERICACreatinine [Mass/Vol]0.71 mg/dLNormal 0.58-0.96Av HospitalComment on above:Order Comment: Specimen Type: BLOOD SPECIMEN [facility] Address: [address] [place], [place] [address]Performed By: #### 03021-5, #### [facility] CLIA [id number] [address] [place] [address] [place] AMERICACreatinine and Glomerular filtration rate.predicted panel (S/P/Bld)99 mL/min/1.73m???Normal>=60Av HospitalComment on above:Order Comment: Specimen Type: BLOOD SPECIMEN [facility] Address: [address] [place], [place] [address]Result Comment: Estimated Glomerular Filtration Rate (eGFR) is [...] not accurately reflect actual GFR.Performed By: #### 75641-9, 04591-9 #### [facility] CLIA [id number] [address] [place] [address] [place] AMERICAGlucose [Mass/Vol]102 mg/gXVesx17-39Dasz HospitalComment on above:Order Comment: Specimen Type: BLOOD SPECIMEN [facility] Address: [address] [place] [address]Ulqjsd Comment: The [place] Diabetes Association (ADA) provides guidance for cutoff [...] Standards of Medical Care in Diabetes 2016, [place] Diabetes Association. Diabetes Care. 2016.39(Suppl 1).Performed By: #### 47054-5, #### [facility] CLIA [id number] [address] [place] [address] [place] AMERICAPotassium [Moles/Vol]3.9 mmol/LNormal 3.7-5.1Ainspira medical center woodbury HospitalComment on above:Order Comment: Specimen Type: BLOOD SPECIMEN [facility] Address: [address] [place] [address]Dtlcpzfxe By: #### 48994-3, #### [facility] CLIA [id number] [address] [place] [address] [place] AMERICAProtein [Mass/Vol]6.7 g/dLNormal6.3-8.0 [facility] Bay HospitalComment on above:Order Comment: Specimen Type: BLOOD SPECIMEN [facility] Address: [address] [place] [address]Ocyzzwxtd By: #### 90305-5, #### [facility] CLIA [id number] [address] [place] [address] [place] AMERICASodium [Moles/Vol]143 mmol/CFcxyml297-335 [facility] HospitalComment on above:Order Comment: Specimen Type: BLOOD SPECIMEN [facility] Address: [address] [place], [place] [address]Uzhgzjqri By: #### 00630-5, 17265-5 #### [facility] CLIA [id number] [address] [place] [address] [place] AMERICAUrea nitrogen [Mass/Vol]26 mg/dLHigh7-21 [facility] HospitalComment on above:Order Comment: Specimen Type: BLOOD SPECIMEN [facility] Address: [address] [place] [address]Bjsdybhps By: #### 52981-6, 66230-9 #### [facility] CLIA [id number] [address] [place] [address] [place] AMERICAECG COMPLETEon 61-92-7892DQH COMPLETE Ventricular Rate : 85 BPM Atrial Rate : 85 BPM P-R Interval : 148 ms QRS Duration : 125 ms Q-T Interval : 385 ms QTC Calculation(Bazett) : 458 ms Calculated P Oklee : 68 degrees Calculated R Oklee : 43 degrees Calculated T Oklee : 44 degrees Sinus rhythm Nonspecific intraventricular conduction delay Abnormal ECG no stemi 2311 Confirmed by SPENCER MONTGOMERY DO ([id number]), editor managing director DENYS CHIN (1941) on 02/08/2024 10:58:08 AM NAME : CHIKIS TOBAR PID : [id number] : 1965 Gender : Female Race : ORD : [id number] Procedure Date : Feb 07 2024 23:01:42 Edit Date : Feb 08 2024 10:58:13 Diagnosis: Sinus rhythm Nonspecific intraventricular conduction delay Abnormal ECG no stemi 2311 Confirmed by SPENCER MONTGOMERY DO ([id number]), editor managing director DENYS CHIN (1941) on 02/08/2024 10:58:08 AM Test Reason : Chest Pain Location : 302 : ED AVED-10 Overread By : SPENCER MONTGOMERY DO Edited By : DENYS CHIN Referred By : , Acquired by : [id number],NormalAvon HospitalED NOTEon 76-86-5899ZQ NOTEHNO ID: [id number] Author: LUIZ MEANS RN Service: Emergency Medicine Author Type: Registered Nurse Type: ED Notes Filed: 02/07/2024 22:45 Note Text: Patient presents to ED via EMS for evaluation of dizziness and bilateral vision changes starting around 2144. Patient at [facility] for rehab post shunt surgery and LT leg fracture. Hx of vertigo but states this seems different. BS 110. EECBEy6EnbqxdTftw HospitalED NOTEHNO ID: [id number] Author: TERI ROSS RN Service: ? Author Type: Registered Nurse Type: ED Notes Filed: 02/07/2024 22:41 Note Text: Bed: ED-10 Expected date: Expected time: Means of arrival: [facility]ED PR[facility] NOTEon 54-19-4854RL PROV NOTEHNO ID: [id number] Author: SPENCER MONTGOMERY DO Service: Emergency Medicine Author Type: Physician Type: ED Provider Notes Filed: 02/08/2024 03:03 Note Text: ED Provider Note Patient Name: Chikis Tobar : 1965 SERVICE DATE: 02/07/24 History Patient presents with: Dizziness: LKW 2144 HPI Chikis Tobar is a 58 F with hx bladder ca s/p IC, vertigo, T1DM, obstructive hydro s/p PSYCH NURSE shunt presents from IP rehab for L [...] Auto (Bld)on 02-07-2024 Eosinophils/100 WBC (Bld)Automated eosinophil %[facility] Erythrocyte distribution width Auto (RBC) [Ratio]on 18-11-1898Giwxfmqsguk distribution width (RBC) [Ratio]Erythrocyte distribution width [Ratio] by Automated qjewxWeyp09.5-15.0[facility] Medical CenterHIGH SENSITIVITY TROPONIN T (INITIAL)on 92-44-0897Glvblqrj T.cardiac High sensitivity method [Mass/Vol]11 ng/LNormal<12Avon HospitalComment on above:Order Comment: Specimen Type: BLOOD SPECIMENOrdering Facility: [facility] Address:[address] [place], [place] [address]Ehwbqqctb By: #### [id number] ####[facility]ORYCLIA [id number] [place] [address] [place] AMERICAHematocrit Auto (Bld) [Volume fraction]on 77-91-9300Nbqtxlyxku (Bld) [Volume fraction]Hematocrit [Volume Fraction] of Blood by Automated count 36.0-46.0[facility] Medical CenterHemoglobin [Mass/volume] in Bloodon 48-80-6320Gsemedjqtq (Bld) [Mass/Vol]Hemoglobin [Mass/volume] in Blood11.5-15.5 [facility] CenterLaboratory - Chemistry and Chemistry - challengeon 10-56-5159Gukztykcj Ql (U)NegativeNegativeUniversity Hospitals Tripoint Medical CenterGlucose (U) [Mass/Vol]NegativeTrace, NegativeUniversity Hospitals Tripoint Medical CenterKetones Ql (U)NegativeNegative, TraceUniversity Hospitals Tripoint Medical CenterpH (U)8.5 [pH]High5.0-8.0[facility] County Hospitalpecific gravity (U) [Rel density]1.0161.005-1.030[facility] CenterAlbumin [Mass/Vol]4.1 g/dL3.9-4.9[facility] Medical CenterALP [Catalytic activity/Vol]141 U/L Resc40-646QhfnsdepoUniversity Hospitals Tripoint Medical CenterALT [Catalytic activity/Vol]19 U/L 7-38[facility] CenterAST [Catalytic activity/Vol]14 U/L13-35 [facility] Medical CenterBilirubin [Mass/Vol]0.2 mg/dL0.2-1.3FPremier Health Miami Valley Hospital NorthCalcium [Mass/Vol]9.5 mg/dL8.5-10.2FPremier Health Miami Valley Hospital NorthChloride [Moles/Vol]104 mmol/I81-565JnqyynjguUniversity Hospitals Tripoint Medical CenterCO2 [Moles/Vol]30 mmol/Z62-72IqizsjjalUniversity Hospitals Tripoint Medical CenterCreatinine [Mass/Vol]0.71 mg/dL0.58-0.96[facility] Medical CenterGlucose [Mass/Vol] 102 mg/aAAdzm35-85PechgezhmUniversity Hospitals Tripoint Medical CenterComment on above:The [place] Diabetes Association (ADA) provides guidance for cutoff [...] diabetes.Reference: Standardsof Medical Care in Diabetes 2016, [place] Diabetes Association. Diabetes Care. 2016.39(Suppl 1). Magnesium [Mass/Vol]2.0 mg/dL1.7-2.3FPremier Health Miami Valley Hospital NorthPotassium [Moles/Vol]3.9 mmol/L3.7-5.1FUniversity Hospitals Geauga Medical Centerodium [Moles/Vol] 143 mmol/Q623-447LxwiztfujUniversity Hospitals Tripoint Medical CenterUrea nitrogen [Mass/Vol]26 mg/dLHigh7-21[facility] CenterLaboratory - Hematology and Cell countson 15-97-9470Vrrpziekmxv (Bld) [#/Vol]0.11 10*3/uL<0.46[facility] Medical CenterImmature granulocytes (Bld) [#/Vol]0.03 10*3/uL<0.10[facility] Medical CenterImhiture granulocytes/100 WBC (Bld)0.6 %[facility] CenterLaboratory - Microbiology and Antimicrobial susceptibilityon 65-62-5765VQUL-CoV-2 (COVID-19) RNA LOUISE+probe Ql (Unsp spec)Not detectedUniversity Hospitals Tripoint Medical CenterLaboratory - Specimen informationon 06-80-7410Napwdfmiga (U)TurbidAbnormalClearFPremier Health Miami Valley Hospital North Color (U)Light OrangeAbnormalyellowUniversity Hospitals Tripoint Medical CenterLaboratory - Urinalysison 65-21-8619Ffgbvlpuf esterase Test strip Ql (U)250 Giorgio/uLAbnormal Negative, 25 Giorgio/uLUniversity Hospitals Tripoint Medical CenterNitrite Ql (U)1+Abnormal NegativeUniversity Hospitals Tripoint Medical CenterProtein Ql (U)1+AbnormalTrace, Negative [facility] CenterLeukocytes [#/volume] corrected for nucleated erythrocytes in Blood by Automated counon 98-87-1684XPG corrected for nucl RBC Auto (Bld) [#/Vol]Leukocytes [#/volume] corrected for nucleated erythrocytes in Blood by Automated coun3.70-11.00[facility] Medical CenterLymphocytes Auto (Bld) [#/Vol]on 12-16-6866Njrujonhrie (Bld) [#/Vol]Lymphocytes [#/volume] in Blood by Automated count1.00-4.00[facility] Lymphocytes/100 WBC Auto (Bld)on 41-96-3669Jipiadrxbkl/100 WBC (Bld) Lymphocytes/100 leukocytes in Blood by Automated countSelect Medical Cleveland Clinic Rehabilitation Hospital, BeachwoodH Auto (RBC) [Entitic mass]on 35-08-2897YRF (RBC) [Entitic mass]MCH [Entitic mass] by Automated count26.0-34.0[facility], BeachwoodHC Auto (RBC) [Mass/Vol]on 71-78-7773GAZC (RBC) [Mass/Vol]MCHC [Mass/volume] by Automated count30.5-36.0[facility] Medical CenterMCV Auto (RBC) [Entitic vol]on 58-23-3934BNK (RBC) [Entitic vol]MCV [Entitic volume] by Automated count 80.0-100.0[facility] Medical CenterMagnesium SerPl-mCncon 02-07-2024 Magnesium [Mass/Vol]2.0 mg/dLNormal1.7-2.3Avon HospitalComment on above:Order Comment: Specimen Type: BLOOD SPECIMEN [facility] Address: [address] [place], [place] [address]Performed By: #### 48039-9, 06668-5 #### [facility] CLIA [id number] [address] [place] [address] [place] AMERICAMonocytes Auto (Bld) [#/Vol]on 02-07-2024 Monocytes (Bld) [#/Vol]Automated blood monocyte count<0.87[facility] Medical CenterMonocytes/100 WBC Auto (Bld)on 63-72-7455Tfybelphu/100 WBC (Bld) Automated monocyte %[facility] Medical CenterNeutrophils Auto (Bld) [#/Vol]on 43-98-2147Tcxpgcetypw (Bld) [#/Vol]Neutrophils [#/volume] in Blood by Automated count1.45-7.50[facility] Medical CenterNeutrophils/100 WBC Auto (Bld)on 46-33-9600Epyadyvwzhj/100 WBC (Bld)Automated neutrophil %[facility] CenterNo Panel Informationon 29-78-8420Iccnm BacteriaRare [HPF] AbnormalNone [facility], Edwin ShawUrine Calcium Oxalate Crystals Few [HPF]AbnormalNone [facility], Edwin ShawUrine Occult Blood NegativeNegative, TraceUniversity Hospitals Tripoint Medical CenterUrine RBC6-10 /HPF Abnormal0-3 /HPFUniversity Hospitals Tripoint Medical CenterUrine Squamous Epithelial Cells Few [HPF]AbnormalNone [facility], Edwin ShawUrine Urobilinogen NormalNormalUniversity Hospitals Tripoint Medical CenterUrine WBC>25 /HPFAbnormal0-5 /HPF [facility] Medical CenterUrine Yeast (Budding)Few [HPF]AbnormalNone Seen [facility] Medical CenterEstimated GFR (CKD-EPI)99 mL/min/1.73m???>=60 [facility] Medical CenterComment on above:Estimated Glomerular Filtration Rate [...] reflect actual GFR.Troponin T Hi Sens Cardiac Udbbjinj15 ng/L<12 [facility] Medical CenterMiscellaneous Test CommentSee commentUniversity Hospitals Tripoint Medical CenterComment on above:Specimen Source: [id number] - - - [id number] RBC Auto (Bld) [#/Vol]on 04-31-8577Vajpxvikn RBC (Bld) [#/Vol]Nucleated erythrocytes [#/volume] in Blood by Automated count<0.01 [facility] Medical CenterNucleated erythrocytes [Presence] in Blood by Automated counton 27-98-7670Quipljomb RBC Auto Ql (Bld)Nucleated erythrocytes [Presence] in Blood by Automated countUniversity Hospitals Tripoint Medical CenterPlatelet mean volume Auto (Bld) [Entitic vol]on 41-40-3161Hbxdcdrv mean volume (Bld) [Entitic vol]Platelet mean volume [Entitic volume] in Blood by Automated count 9.0-12.7FPremier Health Miami Valley Hospital NorthPlatelets Auto (Bld) [#/Vol]on 67-36-9568Ehttnfauf (Bld) [#/Vol]Platelets [#/volume] in Blood by Automated eodoa267-512GnxzhewxqUniversity Hospitals Tripoint Medical CenterProtein [Mass/volume] in Serum or Plasmaon 78-19-8749Tleklcf [Mass/Vol]Protein [Mass/volume] in Serum or Plasma 6.3-8.0[facility] Medical CenterRBC Auto (Bld) [#/Vol]on 58-40-3954IEF (Bld) [#/Vol]Erythrocytes [#/volume] in Blood by Automated count3.90-5.20 Adams County Hospitalerum or plasma anion gap determinationon 45-39-6416Qoxsu gap [Moles/Vol]Serum or plasma anion gap determination8-15 [facility] CenterUrinalysis complete panel (U)on 02-07-2024 Bacteria LM.HPF (Urine sed) [#/Area]RareAbnormalNone SeenCold Bay HospitalComment on above:Order Comment: Specimen Type: URINE SPECIMENOrdering Facility: [facility] Address:[address] [place], [place] [address]Performed By: #### 42858-8 ####[facility] [id number] [place], [place] [address] [place] [address] LABIA [id number] [place] [address] [place] [facility] MEDICAL CENTERBilirubin Ql (U)NegativeNormalNegativeCold Bay HospitalComment on above:Order Comment: Specimen Type: URINE SPECIMENOrdering Facility: [facility] Address:[address] [place], [place] [address]Performed By: #### 66009- 8 ####[facility] [id number] [place] [address] [facility] LABCLIA [id number] [place] [address] [place] CALCIUM OXALATE CRYSTALS (UA)FewAbnormalNone SeenCold Bay HospitalComment on above: Order Comment: Specimen Type: URINE SPECIMENOrdering Facility: [facility] Address:[address] [place], [place] [address]Performed By: #### 60122- 8 ####[facility] [id number] [place] [address] [facility] LABCLIA [id number] [address] [place] Clarity (Unsp spec)TurbidAbnormalClearAvon HospitalComment on above:Order Comment: Specimen Type: URINE SPECIMENOrdering Facility: [facility] Address:[address] [place], [place] [address]Performed By: #### 20961- 8 ####[facility] [id number] [place], [place] [address] [place] [address] LABCLIA [id number] [address] [place] Color (U)Light OrangeAbnormalyArnot Ogden Medical Center HospitalComment on above:Order Comment: Specimen Type: URINE SPECIMENOrdering Facility: [facility] Address:[address] [place], [place] [address]Performed By: #### 58202-4 ####[facility] [id number] [place] [address] [facility] LABCLIA [id number] [address] STATES OF [facility] MEDICAL CENTEREpithelial cells LM.HPF (Urine sed) [#/Area]FewAbnormalNone SeenCold Bay HospitalComment on above:Order Comment: Specimen Type: URINE SPECIMENOrdering Facility: [facility] Address:[address] [place], [place] [address]Performed By: #### 50308-5 ####[facility] [id number] [place] [address] [facility] LABCLIA [id number] [address] [address] [place] OF AMERICAGlucose Test strip (U) [Mass/Vol]NegativeNormalTrace, NegativeAvon HospitalComment on above:Order Comment: Specimen Type: URINE SPECIMENOrdering Facility: [facility] Address:[address] [place], [place] [address]Performed By: #### 93673-2 ####[facility] [id number] [place] [address] [facility] LABCLIA [id number] [address] [address] [place] OF AMERICAHemoglobin Ql (U)NegativeNormalNegative, TraceAv HospitalComment on above:Order Comment: Specimen Type: URINE SPECIMENOrdering Facility: [facility] Address:[address] [place], [place] [address]Performed By: #### 80502-1 ####[facility] [id number] [place] [address] [facility] LABCLIA [id number] [place] [id number] [place] [facility] MED[facility] CENTERKetones Ql (U)NegativeNormalNegative, TraceCold Bay Hospital Comment on above:Order Comment: Specimen Type: URINE SPECIMENOrdering Facility: [facility] Address:[address] [place] [address] Performed By: #### 02508-5 ####[facility] [id number] [place] [address] [facility] LABCLIA [id number] [address] [address] [place] AMERICALeukocyte esterase Test strip Ql (U)250 Giorgio/uLAbnormal Negative, 25 Giorgio/uLAvon HospitalComment on above:Order Comment: Specimen Type: URINE SPECIMENOrdering Facility: [facility] Address:[address] [place], [place] [address]Performed By: #### 45120-5 ####[facility] [id number] [place], [place] [address] [place] [address] LABCLIA [id number] [address] [address] [place] AMERICANitrite Ql (U)1+Abnormal NegativeAvon HospitalComment on above:Order Comment: Specimen Type: URINE SPECIMENOrdering Facility: [facility] Address:[address] [place], [place] [address]Performed By: #### 66485-5 ####[facility] CENTERIA [id number] [place], [place] [address] [place] [address] LABCLIA [id number] [place] [address] [place] AMERICApH (U)8.5 [pH]High5.0-8.0Avon HospitalComment on above:Order Comment: Specimen Type: URINE SPECIMENOrdering Facility: [facility] Address:[address] [place], [place] [address]Performed By: #### 40966-0 ####[facility] [id number] [place], [place] [address] [place] [address] LABCLIA [id number] [address] [address] [place] AMERICAProtein (U) [Mass/Vol]1+AbnormalTrace, NegativeAvon HospitalComment on above:Order Comment: Specimen Type: URINE SPECIMENOrdering Facility: [facility] Address:[address] [place], [place] [address]Performed By: #### 48740-6 ####[facility] [id number] [place] [address] [facility] LABCLIA [id number] [id number] [place] [address] LM.HPF (Urine sed) [#/Area]6-10 /HPFAbnormal0-3 /HPF Cold Bay HospitalComment on above:Order Comment: Specimen Type: URINE SPECIMENOrdering Facility: [facility] Address:[address] [place], [place] [address]Performed By: #### 77139-0 ####[facility] [id number] [place] [address] [facility] LABCLIA [id number] [facility]D AVENUEVENCOR HOSPITALK [address] OF [facility] MEDICAL CENTERSpecific gravity (U) [Rel density]1.276Jbsrjl5.005-1.030Av HospitalComment on above:Order Comment: Specimen Type: URINE SPECIMENOrdering Facility: [facility] Address:[address] [place], [place] [address]Performed By: #### 00318-1 ####[facility] [id number] [place], [place] [address] [place] [address] LABCLIA [id number] [address]ETUrobilinogen Ql (U)NormalNormalNormalAvon HospitalComment on above:Order Comment: Specimen Type: URINE SPECIMENOrdering Facility: [facility] Address:[address] [place], [place] [address]Performed By: #### 69633-5 ####[facility] [id number] [place] [address] [facility] LABCLIA [id number] [facility] UEDESK [address]ETWBC LM.HPF (Urine sed) [#/Area]/[HPF]Abnormal0-5 /HPFAv HospitalComment on above:Order Comment: Specimen Type: URINE SPECIMENOrdering Facility: [facility] Address:[address] [place], [place] [address]Performed By: #### 55217-2 ####[facility] [id number] [address] LABCLIA [id number] [place] [address] [place] AMERICAYeast.budding LM.HPF (Urine sed) [#/Area]FewAbnormalDeyanirae SeenUniversity Of Utah HospitalComment on above: Order Comment: Specimen Type: URINE SPECIMENOrdering Facility: [facility] Address:[address] [place], [place] [address]Performed By: #### 44676- 8 ####[facility] CENTERIA [id number] [address] LABCLIA [id number] [place] [address] [place] Urinalysis complete pnl Uron 66-79-4882Cnerodrdkz complete panel (U)COLOR: Light [place] CLARITY: Turbid GLUCOSE, URINE: Negative BILIRUBIN, URINE: [...] co llection technique or straight catheterization for???urine???collection.Normal [facility] HospitalComment on above:Order Comment: Specimen Type: URINE SPECIMENOrdering Facility: [facility] Address:[facility] [place], [place] [address]Performed By: #### 70033-8 ####[facility] CENTERIA [id number] [place], [place] [address] [place] [address] LABIA [id number] [place] [address] [address] [place] OF AMERICAXR PSYCH NURSE SHUNT SERIES 5V -NBon 48-77-4605WC PSYCH NURSE SHUNT SERIES 5V -NB* * *Final Report* * * DATE OF EXAM: Feb 07 2024 11:36PM VHX 5696 - XR PSYCH NURSE SHUNT SERIES 5V -NB / PROCEDURE REASON: Nausea and Vomiting * * * * Physician Interpretation * * * * EXAMINATION: XR PSYCH NURSE SHUNT SERIES 5V -NB CLINICAL HISTORY: Nausea and Vomiting, Headache or mental status change Technique: XR PSYCH NURSE SHUNT SERIES 5V -NB Comparison: 10/15/2023 RESULT: Right occipital approach PSYCH NURSE shunt catheter. Tip projects over midline, unchanged. [...] Unchanged position of the right occipital approach PSYCH NURSE shunt. 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Leslie Transcribe Date/Time: Feb 08 2024 3:26A Dictated by : DILCIA LARIOS MD This examination was interpreted and the report reviewed and electronically signed by: DILCIA LARIOS MD on Feb 08 2024 3:31AM EST [id number] Bay HospitalHEMOGLOBIN A1C (POC)on 73-76-6308XhF4b (Bld) [Mass fraction]6.6 %Abnormal4.3 - 5.6 %[facility] Jewish HospitalComment on above: Location:[facility], [address] [place] [address], [facility] Point of care (POC) Hemoglobin A1c (HGBA1C) [...] specific diabetes management situations: The POC device mental health associate provides a normal range of 4.2% to 6.5% for the HGBA1C POC test. However, the [place] Diabetes [employer] guidelines indicate that patients with [...] lifespan. Interpretation and review of laboratory resultsAbnormalCleveland Dayton VA Medical CenterCT Head WO contraston 09-45-4306Itfhsjmti Study observation (narrative) [facility] HospitalIMPRESSION: Increased caliber of the lateral and third ventricles from 11/29/2023 with otherwise unchanged positioning of the ventriculostomy catheter. Printed Circuit Board Assembler: SUMA Transcribe Date/Time: Jan 10 2024 1:10P Dictated by : CARMEL GRULLON DO This examination was interpreted and the report reviewed and electronically signed by: CARMEL GRULLON DO on Jan 10 2024 1:14PM [facility] DIVISION OF RADIOLOGY* * *Final Report* * * DATE OF EXAM: Jan 10 2024 1:08PM [facility] [place] BRAIN WO IVCON / [...] catheter tubing is intact. DIVISION OF RADIOLOGYProvider, [facility] [place] - 01/10/2024 * * *Final Report* * * DATE OF EXAM: Jan 10 2024 1:08PM [facility] - CT BRAIN WO IVCON / [...] otherwise unchanged positioning of the ventriculostomy catheter. Printed Circuit Board Assembler: SUMA Transcribe Date/Time: Jan 10 2024 1:10P Dictated by : CARMEL GRULLON DO This examination was interpreted and the report reviewed and electronically signed by: CARMEL GRULLON DO on Jan 10 2024 1:14PM EST [facility] Head WO contrastOrdered By: Ccf Provider on 01-10-2024 [facility] HospitalC-REACTIVE PROTEINon 89-85-2233OXG [Mass/Vol]mg/dLNINF - 0.9 mg/dLElma ClinicCRP [Mass/Vol]on 15-87-6876Kayqwtvfufkvex and review of laboratory resultsNormalCleveland ClinicComprehensive metabolic 2000 panelon 56-98-4387Cyzukkp [Mass/Vol]3.8 g/dLLow3.9 - 4.9 g/dLElma ClinicALP [Catalytic activity/Vol]201 U/LHigh34 - 123 U/LCleveland ClinicALT [Catalytic activity/Vol]32 U/L7 - 38 U/LCleveland ClinicAnion gap [Moles/Vol]11 mmol/L8 - 15 mmol/LCleveland ClinicAST [Catalytic activity/Vol]19 U/L13 - 35 U/LCleveland ClinicBilirubin [Mass/Vol]0.2 mg/dL0.2 - 1.3 mg/dLElma ClinicCalcium [Mass/Vol]8.9 mg/dL8.5 - 10.2 mg/dLElma ClinicChloride [Moles/Vol]101 mmol/L98 - 107 mmol/LCleveland ClinicCO2 [Moles/Vol]28 mmol/L22 - 30 mmol/L Elma ClinicCreatinine [Mass/Vol]0.56 mg/dLLow0.58 - 0.96 mg/dLElma ClinicGFR/1.73 sq M.predicted among non-blacks MDRD (S/P/Bld) [Vol rate/Area]107 mL/min/{1.73_m2}- PINFCleveland ClinicComment on above:Estimated Glomerular Filtration Rate (eGFR) is calculated using the 2020 CKD-EPI creatinine equation. This equation utilizes serum creatinine, sex, and age as parameters. The creatinine assay has traceable calibration to isotope dilution-mass spectrometry. Refer to KDIGO guidelines for clinical interpretation. In patients with unstable renal function, e.g. those with acute kidney injury, the eGFRmay not accurately reflect actual GFR.Glucose [Mass/Vol]149 mg/iRQpkt47 - 99 mg/dL [facility] HospitalComment on above:The [place] Diabetes Association (ADA) provides guidance for cutoff [...] Standards of Medical Care in Diabetes 2016, [place] [employer]. Diabetes Care. 2016.39(Suppl 1). Interpretation and review of laboratory resultsAbnormalCleveland ClinicPotassium [Moles/Vol]3.9 mmol/L3.7 - 5.1 mmol/LCleveland ClinicProtein [Mass/Vol]6.1 g/dL Low6.3 - 8.0 g/dLElma ClinicSodium [Moles/Vol]140 mmol/L136 - 144 mmol/L [facility] HospitalUrea nitrogen [Mass/Vol]25 mg/dLHigh7 - 21 mg/dLMercy Health – The Jewish Hospital No Panel Informationon 10-97-3777Bpxteegad ClinicBasophils Auto (Bld) [#/Vol]on 23-45-5894Nguojwnrg (Bld) [#/Vol]Automated basophil count<0.11[facility] CenterBasophils/100 WBC Auto (Bld)on 26-46-7701Ugemocucq/100 WBC (Bld) Automated basophil %[facility] Medical CenterBlood manual differential comment interpretation narrativeon 96-22-7116Wnroyj differential comment Reymundo (Bld) [Interp]Blood manual differential comment interpretation narrative [facility] CenterCBC W Auto Differential panel (Bld)on 01-07-3563Vlmmymshf (Bld) [#/Vol]0.03 10*3/uLNINFMercy Health – The Jewish HospitalBasophils/100 WBC (Bld)0.4 %[facility] HospitalDifferential cell count method Nom (Bld)Auto [facility] HospitalEosinophils (Bld) [#/Vol]0.14 10*3/uLNINFMercy Health – The Jewish Hospital Eosinophils/100 WBC (Bld)1.8 %[facility] HospitalErythrocyte distribution width (RBC) [Ratio]15.5 %High11.5 - 15.0 %[facility] HospitalHematocrit (Bld) [Volume fraction]37.5 %36.0 - 46.0 %[facility] HospitalHemoglobin (Bld) [Mass/Vol]11.7 g/dL 11.5 - 15.5 g/dLMercy Health – The Jewish HospitalImmature granulocytes (Bld) [#/Vol]0.09 10*3/uL NINFCRegency Hospital ToledoImmature granulocytes/100 WBC (Bld)1.2 %[facility] Interpretation and review of laboratory resultsAbnormalCRegency Hospital Toledo Lymphocytes (Bld) [#/Vol]1.89 10*3/uLMercy Health – The Jewish HospitalLymphocytes/100 WBC (Bld) 24.9 %[facility] Union HospitalH (RBC) [Entitic mass]29.0 pg26.0 - 34.0 pgClevelMunicipal Hospital and Granite ManorHC (RBC) [Mass/Vol]31.2 g/dL30.5 - 36.0 g/dLCleveland Clinic Union HospitalV (RBC) [Entitic vol]93.1 fL80.0 - 100.0 fLClevelBlanchard Valley Health SystemMonocytes (Bld) [#/Vol]0.51 10*3/uLNINFMercy Health – The Jewish HospitalMonocytes/100 WBC (Bld)6.7 %[facility] Neutrophils (Bld) [#/Vol]4.93 10*3/uLMercy Health – The Jewish HospitalNeutrophils/100 WBC (Bld) 65.0 %[facility] HospitalNucleated RBC (Bld) [#/Vol]NINFClevelBlanchard Valley Health SystemNucleated RBC/100 WBC (Bld) [Ratio]0.0 %/100 WBCMercy Health – The Jewish HospitalPlatelet mean volume (Bld) [Entitic vol]9.0 fL9.0 - 12.7 fLClevelfrye regional medical center ClinicPlatelets (Bld) [#/Vol]331 10*3/uLMercy Health – The Jewish HospitalRBC (Bld) [#/Vol]4.03 10*6/uL3.90 - 5.20 m/[facility] Medical CenterWBC (Bld) [#/Vol]7.59 10*3/[facility] Eosinophils/100 WBC Auto (Bld)on 73-83-9373Mjeqwekhiie/100 WBC (Bld)Automated eosinophil %[facility] Medical CenterErythrocyte distribution width Auto (RBC) [Ratio]on 49-65-6115Lodlijbjbzr distribution width (RBC) [Ratio] Erythrocyte distribution width [Ratio] by Automated cotxxMhcd33.5-15.0[facility] Medical CenterHematocrit Auto (Bld) [Volume fraction]on 12-21-2023 Hematocrit (Bld) [Volume fraction]Hematocrit [Volume Fraction] of Blood by Automated count36.0-46.0[facility] Medical CenterHemoglobin [Mass/volume] in Bloodon 93-04-7229Tqzamlgwxr (Bld) [Mass/Vol]Hemoglobin [Mass/volume] in Blood11.5-15.5FPremier Health Miami Valley Hospital NorthLaboratory - Chemistry and Chemistry - challengeon 37-16-9651Wdbwpcj [Mass/Vol]3.8 g/dLLow 3.9-4.9[facility] Medical CenterALP [Catalytic activity/Vol]201 U/LHigh 34-123[facility] CenterALT [Catalytic activity/Vol]32 U/L7-38 [facility] CenterAST [Catalytic activity/Vol]19 U/L13-35 [facility] CenterBilirubin [Mass/Vol]0.2 mg/dL0.2-1.3FPremier Health Miami Valley Hospital NorthCalcium [Mass/Vol]8.9 mg/dL8.5-10.2FPremier Health Miami Valley Hospital NorthChloride [Moles/Vol]101 mmol/Y05-610TggzdakwxUniversity Hospitals Tripoint Medical CenterCO2 [Moles/Vol]28 mmol/N05-36LvhrqdhhkUniversity Hospitals Tripoint Medical CenterCreatinine [Mass/Vol]0.56 mg/dLLow0.58-0.96[facility] Medical CenterGlucose [Mass/Vol]149 mg/wAUbfs82-95YcsecbmcyUniversity Hospitals Tripoint Medical CenterComment on above: The [place] Diabetes Association (ADA) provides guidance for cutoff [...] diabetes.Reference: Standardsof Medical Care in Diabetes 2016, [place] Diabetes Association. Diabetes Care. 2016.39(Suppl 1).Potassium [Moles/Vol]3.9 mmol/L3.7-5.1FUniversity Hospitals Geauga Medical Centerodium [Moles/Vol]140 mmol/U335-576UsmbhznxjUniversity Hospitals Tripoint Medical CenterUrea nitrogen [Mass/Vol]25 mg/dLHigh7-21[facility] Laboratory - Hematology and Cell countson 04-41-6114Znwdtoeacor (Bld) [#/Vol] 0.14 10*3/uL<0.46[facility] Medical CenterImmature granulocytes (Bld) [#/Vol]0.09 10*3/uL<0.10[facility] CenterImphelps health granulocytes/100 WBC (Bld)1.2 %[facility] Medical CenterLeukocytes [#/volume] corrected for nucleated erythrocytes in Blood by Automated counon 80-82-7947YAF corrected for nucl RBC Auto (Bld) [#/Vol]Leukocytes [#/volume] corrected for nucleated erythrocytes in Blood by Automated coun3.70-11.00 [facility] Medical CenterLymphocytes Auto (Bld) [#/Vol]on 12-21-2023 Lymphocytes (Bld) [#/Vol]Lymphocytes [#/volume] in Blood by Automated count 1.00-4.00[facility] Medical CenterLymphocytes/100 WBC Auto (Bld)on 47-50-7661Jucgbantwte/100 WBC (Bld)Lymphocytes/100 leukocytes in Blood by Automated countSelect Medical Cleveland Clinic Rehabilitation Hospital, BeachwoodH Auto (RBC) [Entitic mass]on 78-41-3073NTV (RBC) [Entitic mass]MCH [Entitic mass] by Automated count26.0-34.0 [facility], BeachwoodHC Auto (RBC) [Mass/Vol]on 47-79-2434RBKA (RBC) [Mass/Vol]MCHC [Mass/volume] by Automated count30.5-36.0[facility] Medical CenterMCV Auto (RBC) [Entitic vol]on 40-31-4153MBY (RBC) [Entitic vol] MCV [Entitic volume] by Automated count80.0-100.0[facility] Medical CenterMonocytes Auto (Bld) [#/Vol]on 45-05-0113Ibdytmsbk (Bld) [#/Vol]Automated blood monocyte count<0.87[facility] CenterMonocytes/100 WBC Auto (Bld)on 51-27-1119Zpinhshmw/100 WBC (Bld)Automated monocyte %[facility] Medical CenterNeutrophils Auto (Bld) [#/Vol]on 34-65-8103Aeoiqljqoaf (Bld) [#/Vol]Neutrophils [#/volume] in Blood by Automated count1.45-7.50[facility] Medical CenterNeutrophils/100 WBC Auto (Bld)on 12-21-2023 Neutrophils/100 WBC (Bld)Automated neutrophil %[facility] No Panel Informationon 47-55-0555Q-Reactive Protein, Quantitative<0.3 mg/dL<0.9 [facility] CenterEstimated GFR (CKD-EPI)107 mL/min/1.73m???>=60 [facility] CenterComment on above:Estimated Glomerular Filtration Rate [...] [#/Vol]Nucleated erythrocytes [#/volume] in Blood by Automated count<0.01[facility] Medical CenterNucleated erythrocytes [Presence] in Blood by Automated counton 33-04-4538Etjsaqooy RBC Auto Ql (Bld) Nucleated erythrocytes [Presence] in Blood by Automated countUniversity Hospitals Tripoint Medical CenterPlatelet mean volume Auto (Bld) [Entitic vol]on 44-26-8803Lkxrgkng mean volume (Bld) [Entitic vol]Platelet mean volume [Entitic volume] in Blood by Automated count9.0-12.7FPremier Health Miami Valley Hospital NorthPlatelets Auto (Bld) [#/Vol]on 04-25-0041Eiocixulf (Bld) [#/Vol]Platelets [#/volume] in Blood by Automated -975TgoyrxfbdUniversity Hospitals Tripoint Medical CenterProtein [Mass/volume] in Serum or Plasmaon 58-99-8647Sgrqexq [Mass/Vol]Protein [Mass/volume] in Serum or PlasmaLow6.3-8.0[facility] Medical CenterRBC Auto (Bld) [#/Vol]on 68-70-0703EJJ (Bld) [#/Vol]Erythrocytes [#/volume] in Blood by Automated count 3.90-5.20Adams County Hospitalerum or plasma anion gap determinationon 86-76-7097Pdldx gap [Moles/Vol]Serum or plasma anion gap determination-15[facility] CenterCT Head WO contraston 11-79-9412XVOWWCDOAI: Postsurgical changes with interval decrease in size of the ventricular system, but with small bilateral subdural hygromas, which may be due to over shunting. COMMUNICATION: Communicated with MARLENE CORDERO on 11/29/2023 3:19 PM via verbal communication. Printed Circuit Board Assembler: SUMA Transcribe Date/Time: Nov 29 2023 3:13P Dictated by : VASQUEZ VEGA MD This examination was interpreted and the report reviewed and electronically signed by: VASQUEZ VEGA MD on Nov 29 2023 3:19PM [facility] DIVISION OF RADIOLOGY* * *Final Report* * [...] soft tissues are unremarkable. DIVISION OF RADIOLOGYProvider, [facility] [place] - 11/29/2023 * * *Final Report* * * DATE OF EXAM: Nov 29 2023 3:11PM [facility] 0504 - CT BRAIN WO IVCON [...] on 11/29/2023 3:19 PM via verbal communication. Printed Circuit Board Assembler: SUMA Transcribe Date/Time: Nov 29 2023 3:13P Dictated by : VASQUEZ VEGA MD This examination was interpreted and the report reviewed and electronically signed by: VASQUEZ VEGA MD on Nov 29 2023 3:19PM EST [facility] HospitalRadiology Study observation (narrative)[facility] HospitalCT Head WO contrastOrdered By: Ccf Provider on 39-23-0985Hnudnvqna [facility] And ClinicC-REACTIVE PROTEINon 02-23-5472CGX [Mass/Vol]mg/dLNINF - 0.9 mg/dLMercy Health – The Jewish HospitalCBC W Auto Differential panel (Bld)on 45-02-2466Tuwtnkoao (Bld) [#/Vol]0.05 10*3/uL NINFCleveland ClinicBasophils/100 WBC (Bld)1.0 %[facility] HospitalDifferential cell count method Nom (Bld)AutoCleveland ClinicEosinophils (Bld) [#/Vol]0.23 10*3/uLNINFMercy Health – The Jewish HospitalEosinophils/100 WBC (Bld)4.7 %[facility] Erythrocyte distribution width (RBC) [Ratio]16.9 %High11.5 - 15.0 %[facility] HospitalHematocrit (Bld) [Volume fraction]36.2 %36.0 - 46.0 %[facility] Hemoglobin (Bld) [Mass/Vol]11.4 g/dLLow11.5 - 15.5 g/dLMercy Health – The Jewish HospitalImmature granulocytes (Bld) [#/Vol]NINFCRegency Hospital ToledoImmature granulocytes/100 WBC (Bld)0.2 %[facility] HospitalInterpretation and review of laboratory results AbnormalMercy Health – The Jewish HospitalLymphocytes (Bld) [#/Vol]1.26 10*3/uLMercy Health – The Jewish Hospital Lymphocytes/100 WBC (Bld)25.9 %[facility] HospitalH (RBC) [Entitic mass]28.1 pg 26.0 - 34.0 pgClevelMunicipal Hospital and Granite ManorHC (RBC) [Mass/Vol]31.5 g/dL30.5 - 36.0 g/dL [facility] Union HospitalV (RBC) [Entitic vol]89.2 fL80.0 - 100.0 fLCRegency Hospital Toledo Monocytes (Bld) [#/Vol]0.48 10*3/NINFMercy Health – The Jewish HospitalMonocytes/100 WBC (Bld) 9.9 %[facility] HospitalNeutrophils (Bld) [#/Vol]2.83 10*3/[facility] Neutrophils/100 WBC (Bld)58.3 %[facility] HospitalNucleated RBC (Bld) [#/Vol]NINF [facility] HospitalNucleated RBC/100 WBC (Bld) [Ratio]0.0 %/100 WBCMercy Health – The Jewish Hospital Platelet mean volume (Bld) [Entitic vol]9.4 fL9.0 - 12.7 [facility] Platelets (Bld) [#/Vol]359 10*3/uLMercy Health – The Jewish HospitalRBC (Bld) [#/Vol]4.06 10*6/uL 3.90 - 5.20 m/[facility] Medical CenterWBC (Bld) [#/Vol]4.86 10*3/[facility] CenterComprehensive metabolic 2000 panelon 73-48-3137Mjoovfu [Mass/Vol]3.8 g/dLLow3.9 - 4.9 g/dLElma ClinicALP [Catalytic activity/Vol] 161 U/LHigh34 - 123 U/LClevelfrye regional medical center ClinicALT [Catalytic activity/Vol]10 U/L7 - 38 U/LCleveland ClinicAnion gap [Moles/Vol]8 mmol/L8 - 15 mmol/LCleveland ClinicAST [Catalytic activity/Vol]16 U/L13 - 35 U/LCleveland ClinicBilirubin [Mass/Vol] 0.3 mg/dL0.2 - 1.3 mg/dLCleriverview health institute ClinicCalcium [Mass/Vol]9.2 mg/dL8.5 - 10.2 mg/dLCleriverview health institute ClinicChloride [Moles/Vol]102 mmol/L98 - 107 mmol/LCleveland ClinicCO2 [Moles/Vol]29 mmol/L22 - 30 mmol/LCleveland ClinicCreatinine [Mass/Vol]0.62 mg/dL0.58 - 0.96 mg/dLCleriverview health institute ClinicGFR/1.73 sq M.predicted among non-blacks MDRD (S/P/Bld) [Vol rate/Area]104 mL/min/{1.73_m2}- PINF [facility] HospitalComment on above:Estimated Glomerular Filtration Rate (eGFR) [...] reflect actual GFR.Glucose [Mass/Vol]94 mg/dL74 - 99 mg/dLDayton Children's Hospital on above:The [place] Diabetes Association (ADA) provides guidance for cutoff [...] Standards of Medical Care in Diabetes 2016, [place] [employer]. Diabetes Care. 2016.39(Suppl 1). Interpretation and review of laboratory resultsAbnormalCleveland ClinicPotassium [Moles/Vol]4.3 mmol/L3.7 - 5.1 mmol/LCsheltering arms hospital ClinicProtein [Mass/Vol]6.3 g/dL 6.3 - 8.0 g/dLSt. [facility] Campusodium [Moles/Vol]139 mmol/L136 - 144 mmol/L [facility] HospitalUrea nitrogen [Mass/Vol]19 mg/dL7 - 21 mg/dLMercy Health – [facility] MAGNESIUMon [id number] [Mass/Vol]2.3 mg/dL1.7 - 2.3 mg/dLMercy Health – The Jewish HospitalNo Panel Informationon 19-14-0708Pwfdtyoylbwrhz and review of laboratory resultsNormalCMercy Health Anderson HospitalPHOSPHORUS INORGANICon 11-05-2023 Phosphate [Mass/Vol]3.8 mg/dL2.7 - 4.8 mg/dLMercy Hospital-REACTIVE PROTEINon [id number] [Mass/Vol]0.5 mg/dLNINF - 0.9 mg/dLMercy Health – The Jewish HospitalCBC W Auto Differential panel (Bld)on [id number] (Bld) [#/Vol]NINFCRegency Hospital Toledo Basophils/100 WBC (Bld)0.3 %[facility] HospitalDifferential cell count method Nom (Bld)AutoCleveland ClinicEosinophils (Bld) [#/Vol]0.28 10*3/uLNINFMercy Health – The Jewish HospitalEosinophils/100 WBC (Bld)4.5 %[facility] HospitalErythrocyte distribution width (RBC) [Ratio]17.0 %High11.5 - 15.0 %[facility] HospitalHematocrit (Bld) [Volume fraction]32.9 %Low36.0 - 46.0 %[facility] HospitalHemoglobin (Bld) [Mass/Vol]10.2 g/dLLow11.5 - 15.5 g/dLMercy Health – The Jewish HospitalImmature granulocytes (Bld) [#/Vol]NINFClevelBlanchard Valley Health SystemImmature granulocytes/100 WBC (Bld)0.3 % [facility] HospitalInterpretation and review of laboratory resultsAbnormalClevelBlanchard Valley Health SystemLymphocytes (Bld) [#/Vol]1.06 10*3/uLCleTriHealth Bethesda North HospitalLymphocytes/100 WBC (Bld)17.1 %[facility] HospitalH (RBC) [Entitic mass]27.7 pg26.0 - 34.0 pg [facility] Union HospitalHC (RBC) [Mass/Vol]31.0 g/dL30.5 - 36.0 g/dLMercy Health – [facility] MCV (RBC) [Entitic vol]89.4 fL80.0 - 100.0 fLCsheltering arms hospital ClinicMonocytes (Bld) [#/Vol]0.61 10*3/uLNINFMercy Health – The Jewish HospitalMonocytes/100 WBC (Bld)9.8 %[facility] HospitalNeutrophils (Bld) [#/Vol]4.22 10*3/uLMercy Health – The Jewish HospitalNeutrophils/100 WBC (Bld)68.0 %[facility] HospitalNucleated RBC (Bld) [#/Vol]NINFCRegency Hospital Toledo Nucleated RBC/100 WBC (Bld) [Ratio]0.0 %/100 WBCMercy Health – The Jewish HospitalPlatelet mean volume (Bld) [Entitic vol]9.7 fL9.0 - 12.7 fLCRegency Hospital ToledoPlatelets (Bld) [#/Vol]299 10*3/uLMercy Health – The Jewish HospitalRBC (Bld) [#/Vol]3.68 10*6/uLLow3.90 - 5.20 m/[facility] Medical CenterWBC (Bld) [#/Vol]6.21 10*3/uLOhioHealth Pickerington [facility] ClinicCobalamin (Vitamin B12) [Mass/Vol]on 15-54-5270Kkjplkapmhwevr and review of laboratory resultsAbnormalCleveland ClinicComprehensive metabolic 2000 panel on 89-16-2375Ukpkuru [Mass/Vol]3.4 g/dLLow3.9 - 4.9 g/dLElma ClinicALP [Catalytic activity/Vol]174 U/LHigh34 - 123 U/LCleveland ClinicALT [Catalytic activity/Vol]9 U/L7 - 38 U/LCleveland ClinicAnion gap [Moles/Vol]8 mmol/L8 - 15 mmol/LCleveland ClinicAST [Catalytic activity/Vol]12 U/LLow13 - 35 U/LCleveland ClinicBilirubin [Mass/Vol]0.2 mg/dL0.2 - 1.3 mg/dLElma ClinicCalcium [Mass/Vol]8.8 mg/dL8.5 - 10.2 mg/dLElma ClinicChloride [Moles/Vol]104 mmol/L98 - 107 mmol/LCleveland ClinicCO2 [Moles/Vol]27 mmol/L22 - 30 mmol/L [facility] HospitalCreatinine [Mass/Vol]0.67 mg/dL0.58 - 0.96 mg/dLMercy Health – [facility] GFR/1.73 sq M.predicted among non-blacks MDRD (S/P/Bld) [Vol rate/Area]102 mL/min/{1.73_m2}- PINFCRegency Hospital ToledoComment on above:Estimated Glomerular Filtration Rate (eGFR) is calculated using the 2020 CKD-EPI creatinine equation. This equation utilizes serum creatinine, sex, and age as parameters. The creatinine assay has traceable calibration to isotope dilution-mass spectrometry. Refer to KDIGO guidelines for clinical interpretation. In patients with unstable renal function, e.g. those with acute kidney injury, the eGFRmay not accurately reflect actual GFR.Glucose [Mass/Vol]151 mg/pROvkx16 - 99 mg/dL [facility] HospitalComment on above:The [place] Diabetes Association (ADA) provides guidance for cutoff [...] Standards of Medical Care in Diabetes 2016, [place] [employer]. Diabetes Care. 2016.39(Suppl 1). Interpretation and review of laboratory resultsAbnormalCleveland ClinicPotassium [Moles/Vol]4.7 mmol/L3.7 - 5.1 mmol/LCleveland ClinicProtein [Mass/Vol]6.0 g/dL Low6.3 - 8.0 g/dLElma ClinicSodium [Moles/Vol]139 mmol/L136 - 144 mmol/L [facility] HospitalUrea nitrogen [Mass/Vol]21 mg/dL7 - 21 mg/dLMercy Health – [facility] Hospital FOLATE, SERUMon 42-22-2258Qurwde [Mass/Vol]8.3 ng/mL4.7 - PINF ng/mLCleveland ClinicFolate [Mass/Vol]on 88-14-8317Mwijcccoohshzh and review of laboratory resultsNormalCleveland ClinicIron and Iron binding capacity panelon 11-01-2023 Interpretation and review of laboratory resultsAbnormalCleveland ClinicIron [Mass/Vol]33 ug/dLLow41 - 186 ug/dLMercy Health – The Jewish HospitalIron binding capacity [Mass/Vol]340 ug/dL232 - 386 ug/dLMercy Health – The Jewish HospitalIron/TIBC [Molar ratio]9.7 % Low20.0 - 55.0 %[facility] HospitalMAGNESIUMon 41-40-8487Xbdvwmcwg [Mass/Vol]2.0 mg/dL1.7 - 2.3 mg/dLMercy Health – The Jewish HospitalNo Panel Informationon [id number] ClinicInterpretation and review of laboratory resultsNormal Protestant HospitalPHOSPHORUS INORGANICon 75-07-6936Wmkoguios [Mass/Vol]3.1 mg/dL2.7 - 4.8 mg/dLMercy Health – The Jewish HospitalVITAMIN B12on 11-01-2023 Cobalamin (Vitamin B12) [Mass/Vol]200 pg/dOXuf384 - 1245 pg/mLCleveland Fairmont Hospital And ClinicC- REACTIVE PROTEINon 41-79-7269SBL [Mass/Vol]0.3 mg/dLNINF - 0.9 mg/dLMercy Health – The Jewish HospitalCBC W Auto Differential panel (Bld)on 01-58-4294Mpscjzhsh (Bld) [#/Vol] 0.03 10*3/uLNINFMercy Health – The Jewish HospitalBasophils/100 WBC (Bld)0.5 %[facility] Differential cell count method Nom (Bld)AutoCleveland ClinicEosinophils (Bld) [#/Vol]0.18 10*3/uLNINFMercy Health – The Jewish HospitalEosinophils/100 WBC (Bld)3.2 %[facility] HospitalErythrocyte distribution width (RBC) [Ratio]17.5 %High11.5 - 15.0 % [facility] HospitalHematocrit (Bld) [Volume fraction]33.6 %Low36.0 - 46.0 % [facility] HospitalHemoglobin (Bld) [Mass/Vol]10.5 g/dLLow11.5 - 15.5 g/dLMercy Health – The Jewish HospitalImmature granulocytes (Bld) [#/Vol]0.09 10*3/uLNIPomerene Hospital Immature granulocytes/100 WBC (Bld)1.6 %[facility] HospitalInterpretation and review of laboratory resultsAbnormalCRegency Hospital ToledoLymphocytes (Bld) [#/Vol] 1.09 10*3/uLMercy Health – The Jewish HospitalLymphocytes/100 WBC (Bld)19.5 %[facility] HospitalH (RBC) [Entitic mass]27.6 pg26.0 - 34.0 pgCCleveland Clinic Union HospitalHC (RBC) [Mass/Vol] 31.3 g/dL30.5 - 36.0 g/dLCleveland Clinic Union HospitalV (RBC) [Entitic vol]88.4 fL80.0 - 100.0 fLCsheltering arms hospital ClinicMonocytes (Bld) [#/Vol]0.52 10*3/uLNIPomerene Hospital Monocytes/100 WBC (Bld)9.3 %[facility] HospitalNeutrophils (Bld) [#/Vol]3.68 10*3/[facility] CenterNeutrophils/100 WBC (Bld)65.9 %[facility] HospitalNucleated RBC (Bld) [#/Vol]NINFClevelBlanchard Valley Health SystemNucleated RBC/100 WBC (Bld) [Ratio]0.0 % /100 WBCMercy Health – The Jewish HospitalPlatelet mean volume (Bld) [Entitic vol]9.6 fL9.0 - 12.7 fLCsheltering arms hospital ClinicPlatelets (Bld) [#/Vol]345 10*3/[facility] Medical CenterRBC (Bld) [#/Vol]3.80 10*6/uLLow3.90 - 5.20 m/[facility] Medical CenterWBC (Bld) [#/Vol]5.59 10*3/[facility] LimaCT BRAIN WO IVCONon [id number] BRAIN WO IVCON* * *Final Report* * * DATE OF EXAM: Oct 29 2023 2:09PM [facility] 0504 - CT BRAIN WO IVCON [...] INTERVAL IMPROVEMENT OF VENTRICULAR SIZE SINCE 10/15/2023. 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 [employer]ed [employer] Board Assembler: [facility] Transcribe Date/Time: Oct 29 2023 3:34P Dictated by : JAYDEN MALHOTRA MD This examination was interpreted and the report reviewed and electronically signed by: JAYDEN MALHOTRA MD on Oct 29 2023 3:41PM EST [facility] HospitalRadiology Study observation (narrative)[facility] Head WO contrastOrdered By: Ccf Provider on [id number] ClinicComprehensive metabolic 2000 panelon 65-39-5420Zgiahpn [Mass/Vol]3.6 g/dLLow3.9 - 4.9 g/dL [facility] ClinicALP [Catalytic activity/Vol]181 U/LHigh34 - 123 U/LCleveland ClinicALT [Catalytic activity/Vol]9 U/L7 - 38 U/LCleveland ClinicAnion gap [Moles/Vol]9 mmol/L8 - 15 mmol/LCleveland ClinicAST [Catalytic activity/Vol]11 U/LLow13 - 35 U/LCleveland ClinicBilirubin [Mass/Vol]0.3 mg/dL0.2 - 1.3 mg/dL [facility] ClinicCalcium [Mass/Vol]8.9 mg/dL8.5 - 10.2 mg/dLMercy Health – [facility] Chloride [Moles/Vol]104 mmol/L98 - 107 mmol/LCleveland ClinicCO2 [Moles/Vol]28 mmol/L22 - 30 mmol/LCleveland ClinicCreatinine [Mass/Vol]0.60 mg/dL0.58 - 0.96 mg/dLMercy Health – The Jewish HospitalGFR/1.73 sq M.predicted among non-blacks MDRD (S/P/Bld) [Vol rate/Area]105 mL/min/{1.73_m2}- PINFClevelfrye regional medical center ClinicComment on above: Estimated Glomerular Filtration Rate [...] eGFRmay not accurately reflect actual GFR.Glucose [Mass/Vol]100 mg/iWLpoq76 - 99 mg/dLMercy Health – The Jewish HospitalComment on above:The [place] Diabetes Association (ADA) provides guidance for cutoff [...] Standards of Medical Care in Diabetes 2016, [place] [employer]. Diabetes Care. 2016.39(Suppl 1). Interpretation and review of laboratory resultsAbnormalCleveland ClinicPotassium [Moles/Vol]4.2 mmol/L3.7 - 5.1 mmol/LCleveland ClinicProtein [Mass/Vol]6.0 g/dL Low6.3 - 8.0 g/dLSt. Mary's Medical [facility], [facility] Campusodium [Moles/Vol]141 mmol/L136 - 144 mmol/L [facility] HospitalUrea nitrogen [Mass/Vol]15 mg/dL7 - 21 mg/dLMercy Health – [facility] MAGNESIUMon [id number] [Mass/Vol]2.1 mg/dL1.7 - 2.3 mg/dLMercy Health – The Jewish HospitalNo Panel Informationon [id number] and review of laboratory resultsNormalCMercy Health Anderson HospitalPHOSPHORUS INORGANICon 10-29-2023 Phosphate [Mass/Vol]3.5 mg/dL2.7 - 4.8 mg/dLMercy Hospital-REACTIVE PROTEINon [id number] [Mass/Vol]mg/dLNINF - 0.9 mg/dLMercy Health – The Jewish HospitalCBC W Auto Differential panel (Bld)on [id number] (Bld) [#/Vol]0.03 10*3/uLNINF [facility] HospitalBasophils/100 WBC (Bld)0.5 %[facility] HospitalDifferential cell count method Nom (Bld)AutoCleveland ClinicEosinophils (Bld) [#/Vol]0.12 10*3/uL NINFCleveland ClinicEosinophils/100 WBC (Bld)2.2 %[facility] HospitalErythrocyte distribution width (RBC) [Ratio]17.8 %High11.5 - 15.0 %[facility] Hematocrit (Bld) [Volume fraction]32.6 %Low36.0 - 46.0 %[facility] Hemoglobin (Bld) [Mass/Vol]10.1 g/dLLow11.5 - 15.5 g/dLMercy Health – The Jewish HospitalImmature granulocytes (Bld) [#/Vol]0.03 10*3/uLNINFMercy Health – The Jewish HospitalImmature granulocytes/100 WBC (Bld)0.5 %[facility] HospitalInterpretation and review of laboratory resultsAbnormalCleveland ClinicLymphocytes (Bld) [#/Vol]0.93 10*3/uL LowMercy Health – The Jewish HospitalLymphocytes/100 WBC (Bld)16.9 %[facility] HospitalH (RBC) [Entitic mass]27.6 pg26.0 - 34.0 pgClevelMunicipal Hospital and Granite ManorHC (RBC) [Mass/Vol]31.0 g/dL30.5 - 36.0 g/dLCleveland Clinic Union HospitalV (RBC) [Entitic vol]89.1 fL80.0 - 100.0 fLCsheltering arms hospital ClinicMonocytes (Bld) [#/Vol]0.48 10*3/uLNINFMercy Health – [facility] Monocytes/100 WBC (Bld)8.7 %[facility] HospitalNeutrophils (Bld) [#/Vol]3.91 10*3/uLMercy Health – The Jewish HospitalNeutrophils/100 WBC (Bld)71.2 %[facility] HospitalNucleated RBC (Bld) [#/Vol]NINFClevelBlanchard Valley Health SystemNucleated RBC/100 WBC (Bld) [Ratio]0.0 % /100 WBCMercy Health – The Jewish HospitalPlatelet mean volume (Bld) [Entitic vol]8.9 fLLow9.0 - 12.7 fLCsheltering arms hospital ClinicPlatelets (Bld) [#/Vol]476 10*3/uLHighMercy Health – The Jewish HospitalRBC (Bld) [#/Vol]3.66 10*6/uLLow3.90 - 5.20 m/uLMercy Health – The Jewish HospitalWBC (Bld) [#/Vol] 5.50 10*3/uLProtestant HospitalComprehensive metabolic 2000 panelon [id number] [Mass/Vol]3.6 g/dLLow3.9 - 4.9 g/dLElma ClinicALP [Catalytic activity/Vol]195 U/LHigh34 - 123 U/LCleveland ClinicALT [Catalytic activity/Vol]10 U/L7 - 38 U/LCleveland ClinicAnion gap [Moles/Vol]11 mmol/L8 - 15 mmol/LCleveland ClinicAST [Catalytic activity/Vol]12 U/LLow13 - 35 U/L [facility] HospitalBilirubin [Mass/Vol]0.3 mg/dL0.2 - 1.3 mg/dLMercy Health – [facility] Calcium [Mass/Vol]8.9 mg/dL8.5 - 10.2 mg/dLMercy Health – The Jewish HospitalChloride [Moles/Vol] 104 mmol/L98 - 107 mmol/LCleveland ClinicCO2 [Moles/Vol]27 mmol/L22 - 30 mmol/L [facility] HospitalCreatinine [Mass/Vol]0.62 mg/dL0.58 - 0.96 mg/dLMercy Health – [facility] GFR/1.73 sq M.predicted among non-blacks MDRD (S/P/Bld) [Vol rate/Area]104 mL/min/{1.73_m2}- PINFCRegency Hospital ToledoComment on above:Estimated Glomerular Filtration Rate (eGFR) is calculated using the 2020 CKD-EPI creatinine equation. This equation utilizes serum creatinine, sex, and age as parameters. The creatinine assay has traceable calibration to isotope dilution-mass spectrometry. Refer to KDIGO guidelines for clinical interpretation. In patients with unstable renal function, e.g. those with acute kidney injury, the eGFRmay not accurately reflect actual GFR.Glucose [Mass/Vol]106 mg/nQQrem74 - 99 mg/dL [facility] HospitalComment on above:The [place] Diabetes Association (ADA) provides guidance for cutoff [...] Standards of Medical Care in Diabetes 2016, [place] [employer]. Diabetes Care. 2016.39(Suppl 1). Interpretation and review of laboratory resultsAbnormalCleveland ClinicPotassium [Moles/Vol]4.0 mmol/L3.7 - 5.1 mmol/LCleveland ClinicProtein [Mass/Vol]6.1 g/dL Low6.3 - 8.0 g/dLElma ClinicSodium [Moles/Vol]142 mmol/L136 - 144 mmol/L [facility] HospitalUrea nitrogen [Mass/Vol]15 mg/dL7 - 21 mg/dLCleveland Clinic MAGNESIUMon [id number] [Mass/Vol]2.0 mg/dL1.7 - 2.3 mg/dLMercy Health – The Jewish HospitalNo Panel Informationon 28-48-3052Dhhaztradakphx and review of laboratory resultsNormalCleveland [facility] Medical CenterPHOSPHORUS INORGANICon 10-25-2023 Phosphate [Mass/Vol]3.3 mg/dL2.7 - 4.8 mg/dLMercy Health – The Jewish HospitalBasic metabolic 2000 panelon 69-55-1786Bsamm gap [Moles/Vol]7 mmol/LLow8 - 15 mmol/LCleveland [facility] Calcium [Mass/Vol]8.7 mg/dL8.5 - 10.2 mg/dLMercy Health – The Jewish HospitalChloride [Moles/Vol] 105 mmol/L98 - 107 mmol/LCleveland [facility] ClinicCO2 [Moles/Vol]29 mmol/L22 - 30 mmol/L [facility] HospitalCreatinine [Mass/Vol]0.59 mg/dL0.58 - 0.96 mg/dLMercy Health – [facility] GFR/1.73 sq M.predicted among non-blacks MDRD (S/P/Bld) [Vol rate/Area]105 mL/min/{1.73_m2}- PINFCRegency Hospital ToledoComment on above:Estimated Glomerular Filtration Rate (eGFR) is [...] actual GFR.Glucose [Mass/Vol]97 mg/dL74 - 99 mg/dL [facility] HospitalComment on above:The [place] Diabetes Association (ADA) provides guidance for cutoff [...] Standards of Medical Care in Diabetes 2016, [place] Diabetes Association. Diabetes Care. 2016.39(Suppl 1). Interpretation and review of laboratory resultsAbnormalCleveland ClinicPotassium [Moles/Vol]3.8 mmol/L3.7 - 5.1 mmol/LCleveland ClinicSodium [Moles/Vol]141 mmol/L136 - 144 mmol/LCleveland ClinicUrea nitrogen [Mass/Vol]11 mg/dL7 - 21 mg/dLKettering Health Behavioral Medical Center W Auto Differential panel (Bld)on [id number] (Bld) [#/Vol]0.03 10*3/uLNIPomerene HospitalBasophils/100 WBC (Bld)0.5 % [facility] HospitalDifferential cell count method Nom (Bld)AutoCleveland [facility] Eosinophils (Bld) [#/Vol]0.24 10*3/uLNINFMercy Health – The Jewish HospitalEosinophils/100 WBC (Bld)4.1 %[facility] HospitalErythrocyte distribution width (RBC) [Ratio]17.8 %High 11.5 - 15.0 %[facility] HospitalHematocrit (Bld) [Volume fraction]31.6 %Low36.0 - 46.0 %[facility] HospitalHemoglobin (Bld) [Mass/Vol]9.8 g/dLLow11.5 - 15.5 g/dL [facility] HospitalImmature granulocytes (Bld) [#/Vol]0.03 10*3/uLNIPomerene HospitalImmature granulocytes/100 WBC (Bld)0.5 %[facility] HospitalInterpretation and review of laboratory resultsAbnormalCsheltering arms hospital ClinicLymphocytes (Bld) [#/Vol] 1.11 10*3/uLMercy Health – The Jewish HospitalLymphocytes/100 WBC (Bld)19.2 %[facility] HospitalMCH (RBC) [Entitic mass]27.7 pg26.0 - 34.0 pgCleveland [facility] Hospital And ClinicMCHC (RBC) [Mass/Vol] 31.0 g/dL30.5 - 36.0 g/dLCleveland Clinic Union HospitalV (RBC) [Entitic vol]89.3 fL80.0 - 100.0 fLCleveland [facility]mont Hospital And ClinicMonocytes (Bld) [#/Vol]0.54 10*3/uLNINFMercy Health – [facility] Monocytes/100 WBC (Bld)9.3 %[facility] HospitalNeutrophils (Bld) [#/Vol]3.84 10*3/uLMercy Health – The Jewish HospitalNeutrophils/100 WBC (Bld)66.4 %[facility] HospitalNucleated RBC (Bld) [#/Vol]NINFCRegency Hospital ToledoNucleated RBC/100 WBC (Bld) [Ratio]0.0 % /100 WBCMercy Health – The Jewish HospitalPlatelet mean volume (Bld) [Entitic vol]8.8 fLLow9.0 - 12.7 fLCRegency Hospital ToledoPlatelets (Bld) [#/Vol]548 10*3/uLHighMercy Health – The Jewish HospitalRBC (Bld) [#/Vol]3.54 10*6/uLLow3.90 - 5.20 m/[facility] Medical CenterWBC (Bld) [#/Vol] 5.79 10*3/uLProtestant HospitalMAGNESIUMon 95-02-6424Arppqiqnd [Mass/Vol]1.9 mg/dL1.7 - 2.3 mg/dLMercy Health – The Jewish HospitalNo Panel Informationon [id number] and review of laboratory resultsNormalCUpper Valley Medical CenterPHOSPHORUS INORGANICon 39-58-7581Hdogguskv [Mass/Vol]3.0 mg/dL 2.7 - 4.8 mg/dLMercy Health – The Jewish HospitalCoding Summary.on [id number] Summary. FYBUZfcn14BMp3dPp+PGhlYWQ+EE4JDHFgD61efXZbvK5iF5JTPTnARhgxWUBCIRwWRoLzbrCqJS1nhU NjZXJu [file] [id number] (more content not included)...[facility] Clinical Summaryon [id number] Clinical Summary [address] [address] ED Clinical Summary Person Information Name: CHIKIS TOBAR[place] Age: 58 Years : 1965 Sex: Female Language: Georgian PCP: KALLI SIMONS MD Marital Status: Single [...] 10/07/2023 00:15:45 10/07/2023 00:15:45 10/07/2023 00:15:45 ADDRESS: [address] [place] [address] [address] [place] [phone] PHYS DOC NOTES: MEDICAL INFORMATION: Prescriptions Given: PATIENT EDUCATION INFORMATION: Instructions: Follow up: DIAGNOSIS: 1:Fall; 2:Fracture of left tibia and fibula; 3:Unable to ambulate; Unspecified fracture of shaft ofleft fibula, initial encounter for closed fractureNormal [facility] Medical CenterED Patient Education Noteon [id number] Patient Education NoteNormalTrinity Health System [facility] Medical CenterED Patient Summaryon [id number] Patient Summary [address] [address] Patient Discharge Instructions Person Information Name: CHIKIS TOBAR Age: 58 Years Arrival Date: 10/06/2023 11:39:45 Discharge Diagnosis: 1:Fall; 2:Fracture of left tibia and fibula; 3:Unable to ambulate; Unspecifiedfracture of shaft of left fibula, initial encounter for closed fracture Primary Care Physician: KALLI SIMONS MD Provider Information Primary Provider: Tree Craft M.D. Advanced Childcare Worker:None The exam and treatment you received in the Emergency Department were for an urgent problem and are not intended as complete care. It is important that you follow up with a doctor, nurse practitioner,or physician?s advertising sales assistant for ongoing care. If your symptoms [...] opioids can be used to help relieve ugldakyr-co-tjrhhy pain and are often prescribed following a [...] your community drug take- back program or Mtime mail-back program, or flush them down the toilet, following guidance from the Food and Drug Administration (www.fda.gov/Drugs/ResourcesForYou). ? Visit www.cdc.gov/drugoverdose to learn about the risks of opioids abuse and overdose. ? If you believe you may be struggling with addiction, tell your health landcare officer and ask for guidance or call SAMHSA?S National Helpline at 3-978-511-HELP. v Source: US Department of Health and Human Se (more content not included)... [facility]EM[facility] Documentationon [id number] Documentation Please click on link to see report [id number]a2PVHxFQ5XnDVO2PnE 2Md4FYErpBTw4KZMqWK6 IP9stYDGiQYT1Vt7UzO4eUFMukrCwSBRVL81vTtfdNpYzJHedSPUiHDR4IQmNRy2dZCUzGGEzOFVxERS gICAgICAgICAgICAgICA gICAgICAgICAgICAgICAgICAgICAgICAgICAgICAgICAgICAgICAgICAgICAgICAgDQplbmRvYmoNCg0 GjMMaEo9SZVgkJsXMTnJ uAKEcQPYvXaZaHFBwVGYvhg9CHSJgHRHrFXD4EQVpKTRdNIKpNZvdJVAiDFPsUUr5VURtVLSbTR4IOwX tXGXkBTM4RGCyFDVdQMA wrv4QNUGyFCFzTZo3MPErPRCyIBXmWMddVIEcFKDwEdRrZDQtKJWlPW3FCyUjDESjIQEyJKFuVLBgEEL efo8HMKLmTMTaOvIjJDR wJOGgPAYnHWqvLDZyRZNhJRJ4MNDnLCFpOG9XJrIcMLTsLIM0BxOaQXCbPWOfck1VAGWeSUKyFeqzUAL wMDAwMCBuDQowMDAwMDA yGGd0PHQcXRRoLT0EJgVyFYYrBKA4QzBpTOOaXSQrxq7QGRVdPMUyNyFrCgIxFKNrDNSmUXtnGKOlJEQ rYVV3IQMxZRZkGH6IPbN zNRLvIKSyERLyTVLhQXBijt3EVQKxFGTkFHY1PYIsWVLuJVLzCGoxBFZnYMD2LvJ8MRJqTFSmCR8THlG eGZNvOGU1KkWjKFNlZRQ qpe8EPKJiROQfSHIvGoOcTFTzXOTbNNwqMLJiNEE0YSE0ZNDtDZHrTS5TDvMcNQLaMXL4LBPbAWZnLZU niu6UILQvEVElJCW8XSM bNUUlFCHuBVnkMXSgLEQ7VbE2FVKiCRKhXV1QBtObIONeKZj1UFzlATWpXUVbnt7YaQChtBmosh3QAFt CQ4gKZMp2IUHzKOWPUtM WNtFiJvAvV3P6NjzCYMoMSNKnJAsMKNb+LqhVQCC4NoMJYVkEHJa6VAIJPBhGZXNcIjC6UnBsTPb1Se1 jSj9RnwE8MYG2USGpFrs wWw4dgSWoEZYiASQBG8YryvWfJAQLK2AnxEIeTUDdD1GGDPQ6Eg77ElzylQyMFSL3SBKEWHqdUX8PBhb ZOcHuSKctOm22I4AYz6K 5AvUwZ6RKtPhOqkFYZJvjO0pFhGJ6v9mfoEkOhUKRdUgtDUuAuicYsvVGHLutTYFNyR24ifuLX6IbJNp 4J2OQLv8KZAthWjVodM5 VeUzrKFE5eO2nRXSCBMhZBsmeWU8JAIQQAUj4MKz+PiAgICAgICAgICAgICAgICAgICAgICAgICAgICA gICAgICAgICAgICAgICA gICAgICAgICAgICAgICAgICAgICAgICAgICAgICAgICAgICAgICAgICAgICAgICAgICAgICAgICAgICA gICAgICAgICAgICAgICA gICAgICAgICAgICAgICAgICAgICAgICAgICAgICAgICAgICAgICAgICAgICAgICAgICAgICAgICAgICA gICAgICAgICAgICAgICA gICAgICAgICAgICAgICAgICAgICAgICAgICAgICAgICAgICAgICAgICAgICAgICAgICAgICAgICAgICA gICAgICAgICAgICAgICA gICAgICAgICAgICAgICAgICAgICAgICAgICAgICAgICAgICAgICAgICAgICAgICAgICAgICAgICAgICA gICAgICAgICAgICAgICA gICAgICAgICAgICAgICAgICAgICAgICAgICAgICAgICAgICAgICAgICAgICAgICAgICAgICAgICAgICA gICAgICAgICAgICAgICA tUECjHPKoRS0Vw3OyrxR8wjSgZMsrIDnoGLVJSb7FXVzcWRQeDU9zcv4MKWsJQ47ckODwRHAyEWK0WMG fGjhtV9DsbeAovVfgjsD nAkIkXFKQWh1HfDTZXCipT8J2yXtpIUIpXFKrDWPRQv5XIOrlZA3aGXOyURDjQe7fQNvvRPIzPOGdTZN yEBFCLk6NvSXmLL7ZTIF dsJ2fAd5+BMggbsTjRfvOAg1SGAsqXOJeFcpHKjc2Ej3VxUb8GKNoS2WxOEOjLLCxj8CiOf8ECG7jxJb iJBCvZn0JLQi2Uf7+DQp acMOqZZ7ZRdniS5WmCXApOWSiMVNm6XERvVRxOFDyXWCHXWQaun2U3CvDlMTkuycWpTMWMDIdRFrEN3n 2NoEsM2Y0zInTHHQCS3U 5BdEYMUOkO6TReOvVsN9YqTnD+KAE5eAdPuUyOPeJCONQsF2ep9RMAmWRFgBDDHpHpamQxw3E3EArkoH FWG0KPf1PGO3lq8VwHMD vYZpihyByRmeZNe5XWeEjIREqIshAWtd7Ks1Mc744SS40umRwFqgrGYIQOVpwPXJblHVQp5glUdCpSRB 3MQLsUyqaRNxjTFPnLI7 3SBY1TCYmSfliCvFlg4FrL7XgCWo5Ca6KM1UxBFQ2QQz1Rb1TDZPcRgPyHSCdJFZVPo9MIl6DA6R0iLI cZ6FeR2KRQd2JMvIeAP3 tyl7DKKwjRRSvXR0gxm4ETNtSK8JWx9biKxGrQWB3GBQnWvcjSCefLufezGQuYL4TeDB5KWKdI85eYNi vZFDmS8CtVOk9Rj8KNMH bnCIgFJHrJMkPS4zFQazgZ0KzVNdFF1pmGgV6FDT7KPOtPyy+Pgo+FsejW5MfnRjlASNaEp3ejRxlHYv jBWUpAK1xxqBtzWj+Pg0 Pa1JnZICmDFe5tTSC9CJy6JPmFUWgIBM7NPCeybIERVar1SpLdSMcIjOyaUZxR9spXUEh96bOMGXtXqg Yu3qbEcLg1TsQKL+XK5C VofBoRdEbew0TYTkfeoFcaJVwYB2QEsRgFB4lcx3DRYriJwEyBJ2juk3PPQvGZ9NSAV9Wg5AmCQaHM7V WBPCCB8bHKXKRX3qBWFO BK0fJOTKOF49MYGQHC2PSSUWqkKXAC7LoCTDILr9SBnAsSD9rjk6DMBmfFdQeEM1akd5YDEcUQ8MYTK8 Wu5RrAOcES5UwHJDWVf1 WTtKtID1yvy4YYYssRGFaUK4dzm1EQFhTL4CRPU4Ph5DbSZwKW7ZIESIED9fCWPZEQ6uSMGHAO5dLVNQ LZ25RATOYR0JSYEDnoKK DW7ZeBSEQHz4AMrIfIJ4rtn5TSYztGCBaBW1slb4XQSpQO0Oel0GSn803AA0IITVRC6FjA940ejmakq5 oq0IHUFJlrCTEWTqiPPR nO5RxOXHxmFNyhvIrHCmvRwFdJOLgWi5RkiGvBMrcRjEnXKCwxiJeeCfgDLyfR8XlnEptRVXtLVzySMS RZ0RvFN7lC33yNFNwWBO jWGTNE3H4fZKxL8WkzjHLBx3XFzFkZU8itd6BBRkzDbTpUG6ajb0IWXhHJ5Ptv6OTo702EC8LZKCHO1Y hD521kzcgdt1go0TRDRB clHCHYMpvJ8wZR2xnuHVnSG2xloJ8DOksK7HaMRIjbupuGMheKH27eJD4OMgpHvQipDG1tyygZKMoe2T lRMedI0NwaIaqkIEpqUA wCj4+Hg1FQCENf6oKTS2rbMUhNDUjrpFlvZhIR1DKCRWIY8PktrJVQAHhprtabI1eATP6YTLnGwnmI7M caVsnWOTzI5kFZu8lzBJ 8jPWhLq2FtIVrDJ5Yf419Ib4NPHivZVwuTSQkRE2xFEj5Oj3AKt5DSiCfPP3qvn9RCLitFoHmOT0psc2 DDNqSN4AwN6AmrZX2VoQ gUWQ2UERVK7IlgBgjmHjaaPF2WRDzIpb4PWzPZ6Lsn1GbmtWfDhVkPsQ5Ioq4Yo3BpUGnrlHlNMkqJb6 seOXXf8zfFq3qSJJnTFw 3NNAdJGgnTT41OQekRvZ8VQKnAbSdXKLjAOVuKP7yELX0AG2SB4KfxbEOyYbcJwGeGMPvLDAWP3VeskO EBT7wZE7BITSLQ0GnP25 7njxdpp1tv0ILLMFcuWZCSNghAZBojAatQH6kzCKfGOtmI9ShwUXuXfQmVDzeDCjGF7X8pFIfV3FbtnM VGFWlusdzwB3kWr1+DQp jdrGyTucYIl5TClsaCTNbAipDJtl8Dy2DnGg0AFJtH5EvAHDkHBPkc6RkMl2DOB3vaWutVcW4Hs0+DQp mfHSfRQ4WSjryNKXLvtI bFZV7ZgVF7YOOzZI2wVIGPdWS/CVfA1TliOowmgZPqvdXlGHFocKBhyY7m3KMcBsEjVHTO+9+Up1Q1px wOtxV2BvyVwyNHMoz9ty rXg8E0EfVHBA0xKHDcmFIQblQd254Ouq/7V9HLrz9LEpj8+ZELwpvy5for5vpxdGDD4sNkgIw3EJAT+d sedE0obJ9v+O9Ccs+eu6 Uy2NVV0nXguTlWqZgHDxUQzCAMA5UZ0H5MHYw/36Vwx191y54VCgTpbOfFKFODNkNVDa5wACvfH3itC5 SHv/y7s8/oyytKOmJcmu ahNVOPdDJxJxlqrJqs0wRjfZ/UPFEHQgsSrJLsh/JLsl+5PyZ5nx1o51sKgjg4qhbjWwl8yyio71LVMq q894ngo5pL47qqn8DKbV rILN3yaVbvZ5GCV7ec7ZuXGaBDcU9FOFxr3YfOGg9OFpvIxYeBDAdlqNnX1xAAIcMRqtGi4JelKYdMhG 6YTLLYFcbWZOjU7JvOOH gySNzpePiEQdoYLLeEFGoYk2LayFeDAxuIkFiWLTbusRywYhfGVjcT4YvdAwsFWBuGAzfUIRZC7GbSC2 xX63oXSHiBbLyFQBTF7J 3rCYlI0OmdyELQh4PUiYdHH0tot7DIDgiYRSqFH9jwl1PRXkYM6Wls0CJd694WR3MK4lPPSQxJ463aae msg5gp8QQPUYWT4GEBBW 1p3LmtUiqWp7nILzGX57cKWZsaE0bLEuNFZZnlSn0lMiVM4WlX2unlUQ6YGoYCC (more content not included)...[facility] HospitalEMS DocumentationPlease click on link to see reportNewark HospitalComment on above:Result Comment: Missing Attachment - attachment exceeds size limitation [email or web address].pdf Can be viewed in source systemTransfer Documentson 10-07-2023 Transfer [id number]#1.00TIFFNewark HospitalConsent for Treatmenton 01-92-3977Rfsqhes for Treatment [id number]#1.00TIFTriHealth Noteon 36-15-8357KV NoteDrGiancarlo Nevarez in Neuro. Surgery accepted this patient to [facility]. Await bed assignment. Upon accepting patient, Dr. Nevarez advised Dr. Craft that they had beds available at [place], but they haven't been able to assign one as of 1729. RNA559LbrejtNjkvpa Leopoldo Medical CenterED Note-Physicianon [id number] Note-PhysicianBasic Information Time Seen: Venancio JonesTree 10/06/2023 11:41 Chief Complaint patient presents with left ankle pain after falling on this afternoon d/t knee muscle spasm. denieshitting head, LOC or use of blood thinner History of Present Illness The patient is a 58-year-old female past medical history of hydrocephalus status post PSYCH NURSE shunt placed in May 2022 at [facility] and removed in June at [facility], bladder cancer status post bladder removal with [...] weak since the shunt was removed from [facility] and the good leg for her supporting [...] and Complexity of Problems Differential Diagnosis: [] [facility] Data External documents reviewed: [] My [...] normal pressure hydrocephalus. She has had her PSYCH NURSE shunt removed from [facility] and she is on process getting a new PSYCH NURSE shunt at [facility]. The patient states she has weakness on the right leg and cramps on both legs since the shunt was removed and that is what caused her to fall down today. Initially the case was discussed with Dr. Cantor who recommends patient can be transferred to [facility] since the patient is requesting to be transferredto [facility]. He defers the decision and recommendations per the orthopedic doctor at [facility]. The transfer center has discussed the case with Dr. Reyes who has recommended that patient can go to the ER at [facility] and splint can be placed and [...] is no any urgent need for the PSYCH NURSE shunt to be placed and he recommends that her fracture be taken care of first. The patient has been at [facility] and she is okay with being transferred to [facility]. The case was discussed with Dr. Bradley the hospitalist from [facility] who accepted patient for transfer. The patient received multiple doses of pain medication in the emergency room. The care of the patient was transitio (more content not included)...[facility] Comment on above:Result Comment: Electronically Signed By: Tree Craft M.D..tatianna\Date and Time Signed: 10/05/2417:57 EDTPre-Arrival Noteon [id number]- Arrival NotePre-Arrival Summary Name: , [facility] Current Date: 10/06/2023 11:40:57 EDT Gender: Female Date of : Age: 58 Pre-Arrival Type: EMS ETA: 10/06/2023 11:57:00 EDT Primary Care Physician: Presenting Problem: fall, possible ankle fracture Pre-Arrival User: Sindi Pablo RN Referring Source: Location: [place] Completion Date/Time: 10/06/2023 11:27:00 [facility] Emergency Department Pre-Hospital Report Form Vital Signs: Pre-Hospital Report: Treatment in Route: Response to Treatment: Misc. Issues:[facility] HospitalXR Ankle 3+ Views Lefton 32-20-2835CQ Ankle 3+ Views LeftExam Date/Time: 10/06/2023 12:18 [...] ANT Technologist: CLAUDIO Technical Comments Radiation Dose: Ka,r in mGy = . DAP = .NormalFisher Thomas B. Finan CenterCYTOLOGY NON-GYNOrdered By: Arabella Teixeira on [id number] REPORT DETAIL z4cckDNqZLQunOIoMXTkEPuvfgHgYKAmwVVvH4LeyntaMPzoVV7fVL0slWdmdGPmeDLgMPYpFhGsf4op c677pYUyq9qsTTHZkace fBj9vBkgU33gt8N5YbixJ4vmNILaODuufpIaxbF9ENQnfXCkOBs4JRHwiCMtbbPlVsCjNIOofRTyqZX6 KBCbVP2grocpDPfpRLnf RREsdsH0NZQuyCPoY8DiHVXzSA2ovlvvCTL6NBioPMWtVRA1MgKeWPLwd9Nsaym6PnWscMWpHUpjsHYq nbzojyUePYQbMD5bGGF6 NWVhOjRbDkCkXVNzIpKlNTIGWZngUDQfcTZuBHgzYZA0zWCmzcfxQsSvXIqaceGnRVLfajNioSFaJzTk mnulPU1hikFaNGP7qfNg DZSxVUZ8DLDmU4jsebypVLskFXFvSPBeLTBvh8obU1wldTRcOFTjb12xtLPgMJLoy5SmrPpjyzOwYDTs UxEMmp4pFEEeu6DnrZFR mBN8JXXrDUWpIYtoZYNaakVkc7lqjmEsIB89rLZ2wUahVDVsm5AyYZlyTYHyjWCjFA3sC55dXDQZxpWf OKHCOQG3MDRkut08jBTa KCLqr4KmsTzcrlIckBCkO7GuYzxtQATmFkHrCZFdSKcqLV2hYMA8QwLsLyI8WzcyHUDbui05vGPopDte EWByF3AgWDPaiKKsIBOtItLtrDRoLJEzzyerSAP0[facility] Work Phone: comment on above:Edited results: Previously reported on 09/13/2023 at 1:32 PM EDT.Case ReportMedical Cytology Report Case: [id number] Authorizing Provider: Molly Hendrickson APRN.[employer] Collected: 09/12/2023 01:59 PM Ordering Location: Urology Received: 09/12/2023 04:06 PM Pathologist: Arabella Teixeira MD Specimen: Urine, Midstream [facility] Work Phone: clinical History m5fbeKOtYYQzt1izDDPhwRNgOwClTlUkJhUpAhi1HHEvpjM8Kbq1WEUyYGitbQ7yFOYnZOvzP5bmfxXe jDFqCBAvSDi0gZ1imRvgtZ0aKiRjMwUxEIDqlKVfZPCkEKHrfaYbxqfbEKShmG==Wrilbpkcr Clinic Work Phone: FINAL DIAGNOSIS y1hkpQEdJJTakBYrGZHxLJuinfXzNYHgzBNrY5ExrjiuTKfpCI7iFN0ctPuqwYLhqMAgBNTgSfRea7fj y798fMGlb0ogAOBEburz dOz7cUkmI61xb7U8CjmjV7jvFSMcEUiqYVMpILqooGJzOKsxsyLySCrwdaIfeyMwJzg1ICY9QTy7MXQi cGVydzEyMjQwXHBhcGVy dCO4STGxBW6xntrqEvTeQB5uyqmxYkIdAZ0rirv2IbMxHL2onssqDnSzRAhgDKZiejv1YaSiXe8liMId xFvmYSnoM8zxgU2oWvC0 NHjfA6nksW9dBCq6QVnxAPYzuKB6jpspWSquUOLtthU8oikuAFolXFWlyZR5ycheHZmbKYJgNwU1bhds MFxwYXJkXHBsYWluXGJc CbRrQsrlLzXoWGBbIUIveJ6vKQMJaIFvbLBxBA9teOJwICCzPOJzGHYvLXRUAQjqvYt2MYBer8EssIgd fZ4swxLqNFJ2dl73yPHm sPOuQVLrrgRahi7mIZ3aoIBvCKCgORZbICVxGCCkkIHnRPQkOSOhZGEznwdlYqJbmVKxSADtWREnHIwq YIVtaTDrHOGiXrqjUTXnJjFbK7TfSUFggr1=[facility] Work Phone: Gross Description p9jkaGXrIIWukOONKBQ5FETrJK9akQpsnLp2zZllBIPdlyE3lRJkYFawv6bkIPJ5g9bidxTSInhuOBGv CV7rYFniWXGuGD7qMrCu VMQkLuUdINXhtTGrfuZjYcHcNSDfzIWxkMG4PXHvWR7esxkhFHzwDCmnRGBjbpQ4IRDzlWNtY3UjQJBv RW9uxoifNXX3HIBIHyhh Qb0bcUSibLqfEiRrTlKkBRKcIFUnGPRmc0tlmbAExkqirNp5eS4VQMPnE1EwIQ7Wr0enWNFhyXJpGJE0 FQqzk1scKEkiPSL8XUXv ADFkGMEeZE4AYgEmIIK4BCCoWgN7RvI7EMh2IHYIIWNsTFH0LTT8KgTdPNt9NTjlCIepxBNxEFKfPBRr FJFpNYuqzoL6f0wkIZHf gHLlJCB0MOnai0brFEsuDSS6FXSzThUiNHOwCN4LFhHhUJU2AAFjAaQ3WzQ7OJb2MOTOLiRbDbIrWMK5 ACQ2PcZuFIl1TNy2OOwM BpEyIfp3SxN9DoF9VdM6NSP9AgBrRUApKwYeSBHyKKXcZSqstXXuDA5btCkdYXEpYE0RQGSfRIynQIHg PrTcWE1hEONclyZrVU9y HDS2jcVtiLgeyUYsqOyxKXFcSDazpLZgULCFGdxzxMLgjgfdoTQtbCgiwwKpBJVctGMNVUO8CI4hOERN BzydlLJtCKUqYPr1AATu YuGbbBYqzORnbIqhXtsdlQR2JKclIwobqJ7bwMHLYQKHVhuGVveyzmIiPW1DAVLGIpGVRX67SKYiXvM8 jBX2PO93MIEvQQVerJPd GHbbJ389bMN9dSupAkjmvJO7KVqgMplycZ9mdRAQFHGJZhrRVrxmkvPrWH0TKILGXM7PuRS3QGspONpq wRB5x2poiTWfo7l1HLee LAS3vGjcfVZlkyhxeYEbzAabrhKfLXDofZTtaEZhoEtkFoawuGE5WNhhQaxkwX9phPDYEWIDArrWCnpy lbVrGO4WRMNWLpDPLR34 NEZsEyP7eHC5Qc83PHXyRHYvdUPdOKtkQ914tKWzlM23c2ordQEzDVdvOvqidLXrrvH5SWwEDYBCTZwM YmHxCB8lJXoJD7VAFtH4 WSIbEdC9jKS1Yu31ZWTkALFmbUWjFCydW452BQNtIFvtUOe2vjWfLYJyHzMbGVebnq13PLU7u8wiiWPe LWjeVbrblSLbskJ4FUcX UFNYVHuLEmZrXR1uIRpSE8QZZWqROqvtALI6LHn2H4gduYqzZcxjuaNytCVuSuFZvT9jpGGiEZuyYsgu aXU0PFsxTzhdyM1nkMDD IGEMUlkBEvzcrjCuEH5OEGERPJ8TvNS7UTvdQPnmbUA4n7jxvYGdh3y9QCjjSQX9cMmtpTRftewzvFNy aFxmczIyICBccHJvdGVj lKypXdfkuYT7UBzbPbvyqI4duZCTCNUEMpuBNllafcWlIH9YQPQVLcFDSS02PYWjFiJeyMN3UR28EPWq XXUmcLNqXZymY930l4i0 uHNrRQE4mXBzNBV2WZSeVUxzn9zwBLXlYRldm3QgWAyDNLBCHC6QHS9qnOG7WLwCSAPWSLjdWKI6HwB9 FWn5zNkoAkujlqLkhQGq KzBKeX8enFwuiS4fvNOjW8okItFdVjSmTXHczWSpvKWqvHumGtcqvJD4DValHsamrG1jaCFMYAEUWesC SduvtcObUW1IRVVMZrHE PH22OZU6WMu6qML6LZ14TTMsFQCwrDYmVPovE615INkxeqDoIBV6ACDeNLyfu5miNKSgOJesx3AbEWqW GGUMIO7NLA3miTR8VIbE HEZQPOgwOOAfHdx9LFl4wDviCxmjhhDvlDUfUdAAyK1nbGoshZ8avHHjZ6llXkLjWtPytIWmzOAjEYOb XHBhciANClxzYTMwXGVw hXFYr0LyIECNBiz2SSXWULKOZVeLRT3ENAHVRBLPBZ2JKZdGRrApJVA7KZR5HH8bIrM8NStiRLbfXUUg JdV4LFaoXJejVYHbPINp QjQutUC9EP7wZXGuGmt3AK1rXDRKOQZYMTbRHB1EWSTTRBJYTM1OAxEaU9bCVXLNPaEbOWOIRUSFDIYr YiPBSK7kQ8gMNEUMJnYx MPYHLOUSRZZhDR8CPXOOSRRWVY2ABTJNS41JARCHAZCJK6ANJ3pFVMPyc7XKQKHXJQt0ELOuHbG9TX4w SYzOY1nHAjxuFWT2ERKu tXPqp17IZMAFYTUANmN5JJxcMYl1HBn4DWPYDQnKPTJEMqA8AEbgVWp1ILi6KLRXFWQECFMKEjrdQOQq NzdcfSBQTEFDRUhPTERF Ub1VINOIVRSIJP2LUaDqL7VMLX1LQf1SRNLYNMDUEX6HNWbYEvBpU6WKLB9RLy1JOKGNEIWDTL3PWsFw AUSDY9HKPoVJL0vtEWXH ETCPSZDwRkLIOA0jBUPQSA1NHSDXGAYKV67WTHQSCMJRH6DCXF9KCASdABLmxYVRGHY7TQ6oSYarYTRu A1ShB3CtvmQ7c5avzLeww4OexDFuEX4nhHZyNE4LQGNatzMsEQmxflOeAHd2Fzbmxmzsa Clinic Work Phone: Performing Lab n5lrvOJpCNUmf2wiDAYotIJmPeTuGmJpUoEwPtdipEIkXVtrsmDlMVeacfVgYDZvEuwzdlxbTUAiMAM6 zcRbPIScPLC6GQX5KdPp h5H0FRWoLuUyGKIqCJ1qmDykTBRjQF6hMTXnD6bxaJ8hhwj2LiTvSMChWqG0XEUdqpP7Xnx3APQmMWav l5wgr4YqPJNpHTg6fZbr VvFoVPLaq8jhgdJcZgFqTKNdHXXjILJuaWEpX211r1wda2jbmdKhnEE0JJKjIHS4IOogtdJgabI2YYrd jIPzRkH8NEyaqsJmTNpz diGjdlOmIpa4UOIbF932GDY2kSljw3jpAZY5DDIiZUOlMhPdQi8xsTEbN241IKFgDHBOCRJnvWv0CXId psBcghJaxHTQn699Z498 n3abVJWarmQttZeAadmsv8xpX649FZPpoSAyjxKkQtJrEVUcoSFqxIJ6RFXrEF4oelvvKAtuHIlcDIBi etT5BYIffAEdJ8WfZBBi AL9pbplvFTQ0FPsxLGXdJNG5NfUyNVPfn6Fanyq4NnFhyk9hfi56OJG6x3UdgWwwWFN7ZXU7XbKrAd5c xKXeXXUgWC7yEnWqqUSp RLPyrf06qDunADogliRjhZ9lQyLiBXJvvIMcVQTjAY3dtGPzDBKlzO7fcvgiFYCoJtGjocnqDEBifJmp liDoRy7voNpoLQQ3VIlx X1jguO1tUkL8TUhiL5yaxX7kKHl5ITtzaFQ3NZQfbN9sAX9znylut3goQLaoMKyfEFNcgfM2ifR6YTAb sELtL2WsoB9dINSiOA3h gxnrt9rbKBX7VZunMJEtWKU6DhPvJSQha1Lqcjw9XgUra0GksDQkWRzoZ63ju274ARQunkDmS7mgmVDt blxwbGFpblxmMFxmczI0 WWGmJGRyDBccQJApEQOnAaVpcZAeTqUiJpWvgLyedTlrOJaiMuGiFSWgSHsnI3weIeDeAlAwLjXLKKQd rvmwMKckQ08xoH1gDX83 BFRpiYWeyPXceY7fkU4vpKC0NTHbvsGodteiGbVyPOOmv3BlWGUiFXWgP5jltmElAY6aMOAbiZ8pUmlx OTUwMCBFdWNsaWQgQXZl JAJQrJY2PNqfjiUcF7zcEVXyUMGlCZPNESlJFeZnWeJwMpK0ZVr2OCOsyl02e3bogPYpMKJcjALiScZg UTOgECWwb0vwAHVrmUJk QbTtDpLoKiPjXqyfyZWoERZbWsHrd9uaq617tZOyh2afHAAeEmG8qZDgWITgnZNlW035CPJxXKmcv4ev n3MfIAQebFNdd5E1PHCH jcaraQb3rSpyH25sz3S8GbpsO1vrQZBfYDBwG2ReYM3lRTXtLxt9MGS7LHU5EWRpYNDfL5HlGC0dZCTv cMJdIZj4g5bleEuzKKXp BXT5d3zhPFjqsdItJJ0ouj5jqMb4j7yoobCqAJSbAWHckQPCTNAuL3VjqSffGx1xfJb2nBrjAppfGDM0 Qee7YJ5ibm34smx0tXhv WTAjnprvEhA0CItjLXBlxjdkYLo9AYcmOZQbnUO3PKEjgBLeG6DnORjpZP0ndrf9BJL9EHucYEYdBuC9 NDBcaGVhZGVyeTcyMFxm o797WZS7TvWgYR0xJ1Kxh0U3eD1moAYbEXVpjCWyKpKlJALmto4lhYJbFDffp1PcECN2hwA0xFMihTFy IDSmNY14Xhoor5NuDtdr z6TsY92gqSN5AVvxf6tvLB7iVzN4dhCeOOlai3ncjQ4tJiS2AHixJG9cEH1lHBAfeR1cullsUJUxKwKj qokdDKOitUfogsSxOu0s oKzgAQV3SOuzZ5caaF4fFdT5YJesB7xndK3xGVe1HOvnsNI9NEHkxX3uBJ4oprcuh9jpEIqvDVjyHKWg pkR1thYaHIWwlAPdT7Gu rG3jYWHkWQ6srrnfq8xxNBQ8UUvxYBZqZRN7HzJrKJNyk0Ylgxm2QuViy9QdvJChIYwxR02ft178NWSp obZeO0pjjTEddmspwITu ozlmRDtlhoA4WJPaFOThOVnbGFFaAJEdFwUnsCThXxOdPhOxqCswqGvqKPlbBzRxRFPjDKwjA3eaXzPd XtXbGKTPqAJuyc9tfPsv LCxocDLhnWCtqNX7kQ9xWHNmltXdcd7uHQGyhREKbZZ9CUldayTiF1gaascrFNL9ZJMqNVY3R7kiOFZA dmUsIENsZXZlbGFuZCBP HKM4MNC0UWKzXWJROJCjVCK2VPE4EOGkBNSqfIGtPBYjvpwlSXLnUXEkJQrnFZPyYKIgXcBhuDztrX0n DgGkMxBvGFltOG1lJKRx M8ycaSIeSWRfWPZyT8zzJmOxlE1tuTyiMEzhItMhNpAeHBcksHLweSUOQINhgaR2h5R5HAuzzPKhsxqr MVxmczIwXGxhbmcxMDMz DDcnF5shPpYyISBssKpzLDrls0EiNNFsAIYiZrAdLUvpNOY4b4T9OLktjOPoabBYHtGANI4ocUXmmbay FG8GEskdrLUohrvwSKll tyVoUSdvayqkKGLzXUyeL0uwEkYeFHHbtDxoYQuqj3PfWNZoIBGiIhUriJYrmZ4=[facility] Phone[facility] Phone: Telephone Encounteron [phone] Authentication Interface Message TextNormMarketRiders SystemTranscription Authentication Interface Message TextNormMarketRiders SystemTelephone Encounteron [phone] Authentication Interface Message TextNormal The CareDoxroXeros SystemTranscription Authentication Interface Message TextNormal The CareDoxroXeros SystemEstimated glomerular filtration rate (GFR) non- Americanon 31-84-1796COX/1.73 sq M.predicted among non-blacks MDRD (S/P/Bld) [Vol rate/Area]mL/min/{1.73_m2}>=60[facility] CenterLaboratory - Chemistry and Chemistry - challengeon 21-91-0998Fdscsmb [Mass/Vol]9.3 mg/dL 8.5-10.1FPremier Health Miami Valley Hospital NorthChloride [Moles/Vol]109 mmol/L98-107 [facility] CenterCO2 [Moles/Vol]27.6 mmol/L21.0-32.0[facility] CenterCreatinine [Mass/Vol]0.65 mg/dL0.55-1.02[facility] CenterGFR/1.73 sq M.predicted MDRD (S/P/Bld) [Vol rate/Area] mL/min/{1.73_m2}>=60[facility] CenterGlucose [Mass/Vol]69 mg/dL 74-106[facility] CenterMagnesium [Mass/Vol]1.9 mg/dL1.8-2.4 [facility] CenterPotassium [Moles/Vol]3.8 mmol/L3.5-5.1FUniversity Hospitals Geauga Medical Centerodium [Moles/Vol]145 mmol/W839-030InwblevdoUniversity Hospitals Tripoint Medical CenterUrea nitrogen [Mass/Vol]20.0 mg/dL7.0-18.0[facility] Medical CenterUrea nitrogen/Creatinine [Mass ratio]30.8 mg/mgAdams County Hospitalerum or plasma anion gap determinationon 23-35-1783Lqjwf gap [Moles/Vol]12.2 mmol/LFPremier Health Miami Valley Hospital NorthTelephone Encounteron [phone] Authentication Interface Message TextSpoke with Lucie. Order resent to [facility] yesterday, 08/22, as previous order was sent to [facility].OneCubicleTranscription Authentication Interface Message TextOneCubicleTranscription Authentication Interface Message TextNoElite Education Media GroupTelephone Encounteron [phone] Authentication Interface Message TextCalled and spoke with [facility]. Upon further review, pt's DME order was sent to [facility]. Order resent to [facility].[employer] Authentication Interface Message TextInnoPath Software System Telephone Encounteron [phone] Authentication Interface Message TextMichelle from [facility] is calling about out mutual patient. They have an order for ostomy supplies for the patient however it has not been signed off on by a doctor. Please resubmit the order with the Drs approval on it. Thank you. [phone] MetroHealth SystemTelephone Encounteron 08-09-2023 [employer] Authentication Interface Message TextNoElixir [employer] System Telephone Encounteron [phone] Authentication Interface Message TextNormalThe Metro[facility] SystemTelephone Encounteron [phone] Authentication Interface Message TextNormalThe [facility] SystemTelephone Encounteron [phone] Authentication Interface Message TextNormal The [facility] SystemPatient Instructionson [phone] Authentication Interface Message TextPlease schedule CT headNormChildren's Hospital of Richmond at VCUroHealth SystemProgress Noteson 22-74-3147Behvhxdabdgbw Authentication Interface Message TextNormUniversity Hospitals [facility] Medical Centere [facility] SystemTranscription Authentication Interface Message TextPatient identfied by name and date of Pharmacy updated Vital signs taken Patent in exam room ready for MDEllenville Regional HospitalroHealth SystemStudent Noteon [phone] Authentication Interface Message TextNormalThe [facility] HospitalroHealth SystemTranscription Authentication Interface Message TextNormalThe [facility] HospitalroHealth SystemProgress Noteson 28-27-6555Hmwekuohaawnt Authentication Interface Message TextNormalThe [facility] SystemTranscription Authentication Interface Message TextIdentification was verified by patient verbalizing her name and date of .NormalThe [facility] SystemBASIC METABOLIC PANELon 21-03-1255Uduny gap [Moles/Vol]9 mmol/DMys12-02Nul [facility] SystemComment on above:Performed By: #### CH8 ####[facility] PATHOLOGY [address] [place] [address], [phone] [Mass/Vol]8.0 mg/dLLow8.6-10.3The [facility] SystemComment on above:Performed By: #### CH8 ####S PATHOLOGY NV[address]JDHQABT87[address] [place], [address]Dgtdwzcz [Moles/Vol]108 mmol/ZLedv57-726Qyx [facility] SystemComment on above:Performed By: #### CH8 ####S PATHOLOGY WSVYFDMTAY6952 [place], [address]AX7 [Moles/Vol]29 mmol/ZTlrpga38-03Zgv [facility] SystemComment on above:Performed By: #### CH8 ####S PATHOLOGY ZHIUMITJMP0496 [place], [address]Lkiitadpdn [Mass/Vol]0.40 mg/dLLow0.60-1.20The [facility]ro[facility] System Comment on above:Performed By: #### CH8 ####[facility] PATHOLOGY DX[address] [place] [address], [address]YGYVAOYRV GFR (CKD-EPI)115 mL/min/1.73sqmNormal>=60The [facility] SystemComment on above:Result Comment: 2020 CKD EPI [...] Inclusion of Race in Diagnosing Kidney Disease. [place] Journal of Kidney Diseases 2021;79(2):268-88.e1.2. N Engl J Med 1 Vol. 385 Issue 19 Pages 7326-2120Performed By: #### CH8 ####[facility] PATHOLOGY GDAKALOPJV2995 [place], [address]Btlfspk [Mass/Vol]94 mg/sZTgubqa47-029 The [facility] SystemComment on above:Performed By: #### CH8 ####[facility] PATHOLOGY [address] [place] [address], [address]Lbrajdjrw [Moles/Vol] 3.5 mmol/LNormal3.5-5.0The [facility] SystemComment on above:Performed By: #### CH8 ####[facility] PATHOLOGY HIHLZUOMKZ0321 [place], [place], Sodium [Moles/Vol]142 mmol/IUcpjmv298-336Nfh [facility] SystemComment on above: Performed By: #### CH8 ####[facility] PATHOLOGY [address] [place] [address], [address]Lgdw nitrogen [Mass/Vol]6 mg/dLLow7-25The [facility] SystemComment on above:Performed By: #### CH8 ####[facility] PATH[facility] HKYJKXMDFM5635 [place], [address]Nyahj metabolic 2000 panelon 59-56-1569Inusg gap [Moles/Vol]9 mmol/LLow10 - 20[facility] [...] [facility] SYSTEMTHE [facility]ALTH SYSTEMCBC panel Auto (Bld)on 59-98-2621Jcxqnjthkbk distribution width (RBC) [Ratio]17.2 %High11.5 - 14.5 [...] 11.2 fL THE [facility]ALTH SYSTEMPlatelets (Bld) [#/Vol]499 10*3/nZKdtp511 - 400 K/uLTHE METROHEALTH SYSTEMRBC (Bld) [#/Vol]2.83 10*6/uLLowTHE METROHEALTH SYSTEMWBC (Bld) [#/Vol]5.7 10*3/uL4.5 - 11.5 K/uLTHE [facility]RO[facility]ALTH SYSTEMTHE [facility]ALTH SYSTEMCOMPLETE BLOOD COUNTon 32-84-4535Noothoxiqpu distribution width (RBC) [Ratio]17.2 %High11.5-14.5The [facility] HospitalroHealth SystemComment on above:Performed By: #### CBC ####S PATHOLOGY [address] [place] [address], [address]Prdwzjqimv (Bld) [Volume fraction]25.1 %Low36.0-46.0The [facility] HospitalroHealth SystemComment on above:Performed By: #### CBC ####S PATHOLOGY USFCKEMNSZ[address] [place] [address], [address]Oglngzpaxx (Bld) [Mass/Vol]8.3 g/dLLow 12.0-15.0The [facility] HospitalroHealth SystemComment on above:Performed By: #### CBC ####S PATHOLOGY [address]QSW[address] [place] [address], [address]RCN (RBC) [Entitic mass]29.4 qbKreavs16.0-34.0The [facility] HospitalroHealth SystemComment on above: Performed By: #### CBC ####S PATHOLOGY TIFTFFWNCL8467 [place], [address]FFFW (RBC) [Mass/Vol]33.1 g/zMRbesib13.0-35.9The [facility] HospitalroHealth SystemComment on above:Performed By: #### CBC ####S PATHOLOGY [address]JPK[address] [place] [address], [address]XGK (RBC) [Entitic vol] 89 xIDcwgnv92-669Aue [facility] HospitalroHealth SystemComment on above:Performed By: #### CBC ####S PATHOLOGY HEOVPMOYJD7273 [place], [place], Platelet mean volume (Bld) [Entitic vol]6.8 fLLow7.5-11.2The [facility] Comment on above:Performed By: #### CBC ####S PATHOLOGY RLTHIFMAUT0618 [place], [address]Gvtxhiiqw (Bld) [#/Vol]499 10*3/uLHigh 150-400The [facility] SystemComment on above:Performed By: #### CBC ####S PATHOLOGY EIQJARWFDX7054 [place], [address]CSX (Bld) [#/Vol]2.83 10*6/uLLow4.00-5.20The [facility] SystemComment on above:Performed By: #### CBC ####S PATHOLOGY JWTGAUFVOA9558 [place], [address]LQL (Bld) [#/Vol]5.7 10*3/uLNormal4.5-11.5The [facility] Comment on above:Performed By: #### CBC ####[facility]T [facility] FISNALRAWB4509 [place], [address]Mmsw Plan Noteon 07-13-2023 [employer] Authentication Interface Message TextGuthrie [facility] GLUCOSE, FINGERSTICK-IN OFFICEon 23-25-0912Qmfuuvn [Mass/Vol]117 mg/oVSgmm83-666 [facility] SystemComment on above:Result Comment: Notified ALISTAIR KEY MD Performed By: #### [id number] ####NURSING GLUCOSE AWVCNTK6759 [place], [place], [address]Nwftesx [Mass/Vol]117 mg/uDZmqb68 - 110 mg/dLTHE [facility] SYSTEMInterpretation and review of laboratory resultsAbnoLutheran HospitalTHE [facility] SYSTEMProgress Noteson 47-43-5812Xbecvitivupyf Authentication Interface Message TextNoUniversity Hospitals Elyria [facility] Center SystemTranscription Authentication Interface Message TextNoUniversity Hospitals Elyria Medical Center SystemBASIC METABOLIC PANELon 67-44-8302Huffi gap [Moles/Vol]12 mmol/JUkbgmb77-98Ogx [facility] SystemComment on above:Performed By: #### CH8 ####S PATHOLOGY ZODOTEQSPV5795 [place], [address]Qybeetz [Mass/Vol]8.2 mg/dLLow8.6-10.3 The [facility] SystemComment on above:Performed By: #### CH8 ####[facility] PATHOLOGY WACZHPFNLS9596 [place], [address]Cwpcjrvn [Moles/Vol]106 mmol/FZqrmtp68-708Fzk [facility] SystemComment on above:Performed By: #### CH8 ####[facility] PATHOLOGY HUSENMAGST6387 [place], [address]EQ3 [Moles/Vol]27 mmol/RDllqvr51-54Mic [facility] SystemComment on above:Performed By: #### CH8 ####[facility] PATHOLOGY BAUKYDMCMW5607 [place], [address]Ajdozkwcui [Mass/Vol]0.49 mg/dLLow0.60-1.20The [facility] Comment on above:Performed By: #### CH8 ####[facility] PATHOLOGY RRNAOTYPEQ3471 [place], [address]AHPUNEMDJ GFR (CKD-EPI)110 mL/min/1.73sqmNormal>=60The [facility] SystemComment on above:Result Comment: 2020 CKD EPI [...] Inclusion of Race in Diagnosing Kidney Disease. [place] Journal of Kidney Diseases 202;79(2):268-88.e1.2. N Engl J Med 1 Vol. 385 Issue 19 Pages 5791-3866Performed By: #### CH8 ####S PATHOLOGY EIBOTJLOXF0925 [place], [address]Vlveklg [Mass/Vol]66 mg/eMIpu14-832Jpq [facility] SystemComment on above:Performed By: #### CH8 ####S PATHOLOGY SWXFGFPHVP7689 [place], [address]Iouytjrty [Moles/Vol] 3.7 mmol/LNormal3.5-5.0The [facility] SystemComment on above:Performed By: #### CH8 ####[facility] PATHOLOGY UDEQBXXKOE0843 [place], Sodium [Moles/Vol]141 mmol/QUufjxt880-156Chi [facility] HospitalroHealth SystemComment on above: Performed By: #### CH8 ####[facility] PATHOLOGY RULGCOHZVS[address] [place] [address], [address]Kajp nitrogen [Mass/Vol]8 mg/dLNormal7-25The [facility] HospitalroHealth SystemComment on above:Performed By: #### CH8 ####[facility] PATHOLOGY AVMJHYQAXM[address] [place] [address], [address]Xmdcj metabolic 2000 panelon 70-49-5867Ynijh gap [Moles/Vol]12 mmol/L10 - 20THE [facility] [...] [facility]ALTH SYSTEMTHE [facility]ALTH SYSTEMCBC panel Auto (Bld)on 91-51-8586Scgaxkiftwp distribution width (RBC) [Ratio]18.0 %High11.5 - 14.5 %THE [facility] SYSTEMHematocrit (Bld) [Volume fraction]28.3 %Low36.0 - 46.0 %THE [facility] SYSTEMHemoglobin (Bld) [Mass/Vol]9.0 g/dLLow12.0 - 15.0 g/dLTHE METROOHIOHEALTH PICKERINGTON [facility] SYSTEMInterpretation and review of laboratory resultsAbnormalTHCAPE FEAR VALLEY BLADEN COUNTY HOSPITALROOHIOHEALTH PICKERINGTON METHODIST HOSPITAL SYSTEMMCH (RBC) [Entitic mass]28.1 pg26.0 - 34.0 pgTHE METROHEALTH SYSTEMMCHC (RBC) [Mass/Vol]31.7 g/dL Low32.0 - 35.9 g/dLTHE METROOHIOHEALTH PICKERINGTON METHODIST HOSPITAL SYSTEMMCV (RBC) [Entitic vol]89 fL80 - 100 fL THE [facility]ALTH SYSTEMPlatelet mean volume (Bld) [Entitic vol]7.0 fLLow7.5 - 11.2 fLTHE [facility]ROHEALTH SYSTEMPlatelets (Bld) [#/Vol]595 10*3/bKJjiu831 - 400 K/uLTHE [facility]ROHEALTH SYSTEMRBC (Bld) [#/Vol]3.19 10*6/uLLowTHE [facility] WBC (Bld) [#/Vol]7.2 10*3/uL4.5 - 11.5 K/uLTHE [facility]ALTH SYSTEMTHE METROOHIOHEALTH PICKERINGTON METHODIST HOSPITAL SYSTEMCOMPLETE BLOOD COUNTon 10-10-7571Ythhrerpmjf distribution width (RBC) [Ratio]18.0 %High11.5-14.5The [facility] HospitalroSelect Medical [facility]ty [facility] SystemComment on above:Performed By: #### CBC ####S PATHOLOGY VKZODYTPJK3878 [place], [address]Ielqxeanat (Bld) [Volume fraction]28.3 %Low36.0-46.0The [facility] HospitalroSelect Medical Specialty [facility] SystemComment on above:Performed By: #### CBC ####S PATHOLOGY GNMLREZWFT6347 [place], [address]Jknseqgjvx (Bld) [Mass/Vol]9.0 g/dLLow 12.0-15.0The [facility] HospitalroHealth SystemComment on above:Performed By: #### CBC ####[facility] PATHOLOGY IWDQQCOJOV8445 [place], [address]CUU (RBC) [Entitic mass]28.1 bwGabfij28.0-34.0The [facility] HospitalroHealth SystemComment on above: Performed By: #### CBC ####[facility] PATHOLOGY WTLYSXUKJG[address] [place] [address], [address]GGTX (RBC) [Mass/Vol]31.7 g/dLLow32.0-35.9The [facility] HospitalroHealth SystemComment on above:Performed By: #### CBC ####[facility] PATHOLOGY ULVZOVDJTZ64[address] [place] [address], [address]OOX (RBC) [Entitic vol] 89 nGDdiqcf28-154Jhp [facility] SystemComment on above:Performed By: #### CBC ####[facility] PATHOLOGY TDLJHARDRA[address] [place] [address], Platelet mean volume (Bld) [Entitic vol]7.0 fLLow7.5-11.2The [facility] HospitalroSelect [facility] System Comment on above:Performed By: #### CBC ####[facility] PATHOLOGY QIOKHANKJO85[address] [place] [address], [address]Chkylremi (Bld) [#/Vol]595 10*3/uLHigh 150-400The [facility] SystemComment on above:Performed By: #### CBC ####[facility] PATHOLOGY DXZKAFAZRA[address] [place] [address], [address]SIN (Bld) [#/Vol]3.19 10*6/uLLow4.00-5.20The [facility] SystemComment on above:Performed By: #### CBC ####[facility] PATHOLOGY QLIFFKDSIV5[address] [place] [address], [address]QCU (Bld) [#/Vol]7.2 10*3/uLNormal4.5-11.5The [facility] Comment on above:Performed By: #### CBC ####[facility] PATHOLOGY XDURIONOCH[address] [place] [address], [address]Amcr Plan Noteon 07-12-2023 [employer] Authentication Interface Message TextNormalThe [facility] [employer] Authentication Interface Message TextNormalThe [facility] Consultson 28-49-7377Ilxyjaancczqj Authentication Interface Message TextNormal The [facility] SystemTranscription Authentication Interface Message TextNormal The [facility] SystemGLUCOSE, FINGERSTICK-IN OFFICEon 87-35-1377Nhdzews [Mass/Vol]82 mg/lLGdyyqf48-493Ekd [facility] SystemComment on above:Result Comment: Follow ProtocolPerformed By: #### 87922 ####NURSING GLUCOSE GULJHRW4509 [place], [place], [address]Jiqkzsd [Mass/Vol]82 mg/dL68 - 110 mg/dL THE [facility] SYSTEMInterpretation and review of laboratory resultsNormCarilion New River Valley Medical CenterROHEALTH SYSTEMTHE [facility]ALTH SYSTEMGlucose [Mass/Vol]139 mg/jRTjlm47-642Blb [facility] HospitalroHealth SystemComment on above:Performed By: #### 78049 ####NURSING GLUCOSE LQRDYLZ5226 [place], [place], [address]Vxwhnho [Mass/Vol]82 mg/dL Afeoia80-924Crq [facility] SystemComment on above:Result Comment: Notified ALISTAIR KEY MDPerformed By: #### 30017 ####NURSING GLUCOSE LDYAIGQ6996 [place], [place], [address]Rtbbxcp [Mass/Vol]139 mg/yQWfkl11 - 110 mg/dLTHE [facility] SYSTEMInterpretation and review of laboratory resultsAbnormOhioHealth Mansfield HospitalE [facility] NETWORKROHEALTH SYSTEMTHE [facility]ALTH SYSTEMGlucose [Mass/Vol]82 mg/dL68 - 110 mg/dL THE [facility] SYSTEMInterpretation and review of laboratory resultsNormOhioHealth Mansfield HospitalE [facility] NETWORKROHEALTH SYSTEMTHE METRO[facility]ALTH SYSTEMGlucose [Mass/Vol]109 mg/aJVczubi70-990 The [facility] SystemComment on above:Performed By: #### 78741 ####NURSING GLUCOSE KPEDDNE4347 [place], [place], [address]Rafkdwlo Noteson 37-35-1577Sivpakmscnfoi Authentication Interface Message TextNormalThe [facility] SystemTranscription Authentication Interface Message TextNormalThe [facility] SystemTranscription Authentication Interface Message TextNormalThe [facility] SystemBASIC METABOLIC PANELon 68-32-0447Rzcoe gap [Moles/Vol]12 mmol/EVjxvhb97-05Iqt [facility] SystemComment on above:Performed By: #### CH8 ####S PATHOLOGY SOYEDJBMHE3884 [place], [address] Calcium [Mass/Vol]8.5 mg/dLLow8.6-10.3The [facility] SystemComment on above: Performed By: #### CH8 ####S PATHOLOGY IRTUHSFRND2924 [place], [address]Jcyymfht [Moles/Vol]108 mmol/YMhow65-649Pvx [facility] SystemComment on above:Performed By: #### CH8 ####S PATHOLOGY ZERVIPKSQX0669 [place], [address]VB4 [Moles/Vol]26 mmol/OGcyofu54-97Gla [facility] SystemComment on above:Performed By: #### CH8 ####S PATHOLOGY YXHFTSODRQ2193 [place], Creatinine [Mass/Vol]0.43 mg/dLLow0.60-1.20The [facility] SystemComment on above:Performed By: #### CH8 ####[facility] PATHOLOGY BYVWUHUHEH6214 [place], [address]EVTNZZBQR GFR (CKD-EPI)113 mL/min/1.73sqmNormal >=60The [facility] SystemComment on above:Result Comment: 2020 CKD EPI [...] Inclusion of Race in Diagnosing Kidney Disease. [place] Journal of Kidney Diseases 202;79(2):26 8-88.e1.2. N Engl J Med 1 Vol. 385 Issue 19 Pages 6941-1749Performed By: #### CH8 ####S PATHOLOGY TYFUBDXYAE2476 [place], Glucose [Mass/Vol]60 mg/cDTmi52-344Bdh [facility] SystemComment on above: Performed By: #### CH8 ####S PATHOLOGY VNOYBJLHLH6567 [place], [address]Osohtllcd [Moles/Vol]3.8 mmol/LNormal3.5-5.0The [facility] SystemComment on above:Performed By: #### CH8 ####[facility] PATHOLOGY AKRYMIENZZ5273 [place], [address]Conavi [Moles/Vol]142 mmol/EAxnafu167-259Ncx [facility] HospitalroHealth SystemComment on above:Performed By: #### CH8 ####[facility] PATHOLOGY BNPRCKITNV5298 [place], [address]Bfqy nitrogen [Mass/Vol]9 mg/dLNormal7-25The [facility] HospitalroHealth SystemComment on above: Performed By: #### CH8 ####[facility] PATHOLOGY IBJHXYGHFD7022 [place], [address]Bszmv metabolic 2000 panelon 65-47-3741Cjpxn gap [Moles/Vol]12 mmol/L10 - 20THE [facility] Work Phone: Calcium [Mass/Vol]8.5 mg/dLLow8.6 - 10.3 mg/dLTHE [facility] Work Phone: Chloride [Moles/Vol]108 mmol/LHigh98 - 107 mmol/LTHE [facility] Work Phone: CO2 [Moles/Vol]26 mmol/L21 - 31 mmol/LTHE [facility] Work Phone: Creatinine [Mass/Vol]0.43 mg/dLLow0.60 - 1.20 mg/dLTHE [facility] Work Phone: GFR/1.73 sq M.predicted CKD-EPI (S/P/Bld) [Vol rate/Area]113- PINFTHE [facility] Work Phone: Glucose [Mass/Vol]60 mg/dLLow74 - 109 mg/dLTHE [employer] SYSTEM Work Phone: Interpretation and review of laboratory results AbnormalTHE [employer] SYSTEM Work Phone: Potassium [Moles/Vol]3.8 mmol/L3.5 - 5.0 mmol/LTHE [facility] Work Phone: Sodium [Moles/Vol]142 mmol/L136 - 145 mmol/LTHE [facility] Work Phone: Urea nitrogen [Mass/Vol]9 mg/dL7 - 25 mg/dLTHE [employer] SYSTEM Work Phone: THE [employer] SYSTEM Work Phone: CBC panel Auto (Bld)on 61-39-2847Vhslplxwsaj distribution width (RBC) [Ratio]18.0 %High11.5 - 14.5 %[facility] Hematocrit (Bld) [Volume fraction]24.7 %Low36.0 - 46.0 %[facility] Hemoglobin (Bld) [Mass/Vol]7.9 g/dLLow12.0 - 15.0 g/dLTHE METROOPNET [employer], [employer] SYSTEM Interpretation and review of laboratory resultsAbnormalTHE [facility]ROHEALTH SYSTEMMCH (RBC) [Entitic mass]28.4 pg26.0 - 34.0 pgTHE METROHEALTH SYSTEMMCHC (RBC) [Mass/Vol]32.1 g/dL32.0 - 35.9 g/dLTHE [facility]ALTH SYSTEMMCV (RBC) [Entitic vol] 89 fL80 - 100 fLTHE [facility]ALTH SYSTEMPlatelet mean volume (Bld) [Entitic vol] 6.8 fLLow7.5 - 11.2 fLTHE [facility]ALTH SYSTEMPlatelets (Bld) [#/Vol]648 10*3/uL Btqq533 - 400 K/uLTHE [facility]ALTH SYSTEMRBC (Bld) [#/Vol]2.79 10*6/uLLowTHE [facility]RO[facility]ALTH SYSTEMWBC (Bld) [#/Vol]7.0 10*3/uL4.5 - 11.5 K/uLTHE [facility] SYSTEMTHE [facility] NETWORKROHEALTH SYSTEMCOMPLETE BLOOD COUNTon 95-74-8596Gipfghyajmm distribution width (RBC) [Ratio]18.0 %High11.5-14.5The [facility] HospitalHealth SystemComment on above:Performed By: #### CBC ####[facility] PATHOLOGY YVTPSXEFCD[address] [place] [address], [address]Wezhmujlhi (Bld) [Volume fraction]24.7 %Low 36.0-46.0The [facility] HospitalHealth SystemComment on above:Performed By: #### CBC ####[facility] PATHOLOGY REZNNLWOFQ[address] [place] [address], [address]Pqvyrckqwa (Bld) [Mass/Vol]7.9 g/dLLow12.0-15.0The [facility] HospitalHealth SystemComment on above: Performed By: #### CBC ####[facility] PATHOLOGY MGLWJGNLPD[address] [place] [address], [address]PMO (RBC) [Entitic mass]28.4 evUosbck44.0-34.0The [facility] HospitalHealth SystemComment on above:Performed By: #### CBC ####[facility] PATHOLOGY KVIANYMLHL[address] [place] [address], [address]ZHRR (RBC) [Mass/Vol] 32.1 g/vBVvrzra98.0-35.9The [facility] SystemComment on above:Performed By: #### CBC ####[facility] PATHOLOGY EUGDRQHTYU[address] [place] [address], [address]APN (RBC) [Entitic vol]89 vKCntbkx43-752Nce [facility] SystemComment on above:Performed By: #### CBC ####[facility] PATHOLOGY GRAXFYVPWZ[address] [place] [address], [address]Sxjcpmre mean volume (Bld) [Entitic vol]6.8 fLLow 7.5-11.2The [facility] SystemComment on above:Performed By: #### CBC ####[facility] PATHOLOGY RWRMYXKNQU9[address] [place] [address], [address]Bvdbgvbia (Bld) [#/Vol]648 10*3/lFNptr218-477Rpk [facility] SystemComment on above: Performed By: #### CBC ####S PATHOLOGY YFDRDZXAWR1194 [place], [address]BEJ (Bld) [#/Vol]2.79 10*6/uLLow4.00-5.20The [facility] SystemComment on above:Performed By: #### CBC ####[facility] PATH[facility] GLFZPRWHKG3183 [place], [address]PLX (Bld) [#/Vol]7.0 10*3/uLNormal4.5-11.5The [facility] SystemComment on above:Performed By: #### CBC ####S PATHOLOGY FVOSFFLCPY9523 [place], Consultson 26-06-2907Qbzslxiqeisry Authentication Interface Message TextNormal The [facility] HospitalroHealth SystemTranscription Authentication Interface Message TextNormal The [facility] HospitalroHealth SystemGLUCOSE, FINGERSTICK-IN OFFICEon 76-53-0879Jxeizbj [Mass/Vol]77 mg/xGUlzxbe41-312Olp [facility] HospitalroHealth SystemComment on above:Performed By: #### 26746 ####NURSING GLUCOSE SUAVFDZ8696 [place], [place], [address]Glbyemh [Mass/Vol]66 mg/cSIic40-666Aol [facility] SystemComment on above: Performed By: #### 37889 ####NURSING GLUCOSE MVOKHKM1665 [place], [place], [address]Lnfoluc [Mass/Vol]58 mg/cWYsn35-147Rib [facility] SystemComment on above:Performed By: #### 45454 ####NURSING GLUCOSE IAAEEZM9597 [place], [place], [address]Axfpvan [Mass/Vol]109 mg/dL68 - 110 mg/dL THE [facility] SYSTEMInterpretation and review of laboratory resultsNormalTHE [facility]ALTH SYSTEMTHE [facility]ALTH SYSTEMGlucose [Mass/Vol]77 mg/dL68 - 110 mg/dL THE [facility] SYSTEMInterpretation and review of laboratory resultsNormalTHE [facility] NETWORKROHEALTH SYSTEMTHE [facility]ALTH SYSTEMGlucose [Mass/Vol]66 mg/dLLow68 - 110 mg/dLTHE [facility] SYSTEMInterpretation and review of laboratory results AbnormalTHE [facility]ALTH SYSTEMTHE [facility]ALTH SYSTEMGlucose [Mass/Vol]58 mg/dL Low68 - 110 mg/dLTHE [facility] SYSTEMInterpretation and review of laboratory resultsAbnormOhioHealth Mansfield HospitalE [facility] NETWORKROHEALTH SYSTEMTHE [facility]ALTH SYSTEMGlucose [Mass/Vol]77 mg/qWQjqxsp86-094Dmm [facility] HospitalroHealth SystemComment on above:Performed By: #### 04713 ####NURSING GLUCOSE PGGSWUU4295 [place], [place], [address]Rihaxqf [Mass/Vol]77 mg/dL68 - 110 mg/dLTHE [facility]ALTH SYSTEMGlucose [Mass/Vol]93 mg/dL Rxxntd39-939UHV [facility] NETWORKROHEALTH SYSTEMComment on above:Performed By: #### 64760 ####NURSING GLUCOSE TSNCXLW[address] [place] [address], [address]Xdywasn [Mass/Vol]121 mg/qHFjep21-315Exs [facility] HospitalroHealth SystemComment on above:Result Comment: Notified ALISTAIR KEY MDPerformed By: #### 92181 ####NURSING GLUCOSE FYVFBHG[address] [place] [address], [address]Sqvbsev [Mass/Vol]121 mg/dLHigh 68 - 110 mg/dLTHE [facility] SYSTEMInterpretation and review of laboratory resultsAbnoAtrium Health Wake Forest Baptist Medical CenterROFOUR WINDS PSYCHIATRIC HOSPITALTHE [facility] NETWORKROHEALTH SYSTEMGlucose [Mass/Vol]126 mg/xNBblx18-348Gal [facility] HospitalroHealth SystemComment on above:Performed By: #### 26290 ####NURSING GLUCOSE HWPXIPT5820 [place], [place], [address]Pclwrqp [Mass/Vol]61 mg/pLPky29-702Stq [facility] HospitalroHealth SystemComment on above:Performed By: #### 22759 ####NURSING GLUCOSE ANLRIRO6261 [place], [address] Glucose [Mass/Vol]126 mg/lMTjjg24 - 110 mg/dLTHE [facility] Interpretation and review of laboratory resultsAbnoAtrium Health Wake Forest Baptist Medical CenterROOHIOHEALTH PICKERINGTON METHODIST [facility]ITAL SYSTEMTHE [facility]ALTH SYSTEMGlucose [Mass/Vol]61 mg/dLLow68 - 110 mg/dLTHE [facility] SYSTEMInterpretation and review of laboratory resultsAbnoSt. Francis Hospital SYSTEMTHE [facility] NETWORKROOHIOHEALTH PICKERINGTON METHODIST HOSPITAL SYSTEMLACTIC ACIDon 06-90-8974DA LACT0.8 mmol/LNormal 0.5-1.6The [facility] SystemComment on above:Performed By: #### LACT ####[facility] PATHOLOG[facility] MBUPOIVABM[address] [place] [address], [address] Interpretation and review of laboratory resultsNoSt. Francis Hospital SYSTEM Work Phone: Lactate [Moles/Vol]0.8 mmol/L0.5 - 1.6 mmol/LTHE [facility] NETWORKROHEALTH SYSTEM Work Phone: THE [facility] NETWORKRO[facility]ALTH SYSTEM Work Phone: No Panel Informationon 05-62-5563Dicxnhllemeqnf and review of laboratory resultsNoUC Health SYSTEM Progress Noteson 04-66-7293Qptkunzmmdlcn Authentication Interface Message Text NormalThe [facility] HospitalroHealth SystemTranscription Authentication Interface Message Text NormalThe Huntington HospitalroHealth SystemTranscription Authentication Interface Message Text NormalThe [facility] HospitalroSelect Medical Specialty [facility] SystemAnesthesia Postprocedure Evaluationon 07-10-2023 [employer] Authentication Interface Message TextNoAtrium Health Wake Forest BaptistroHealth System Anesthesia Transfer Of Careon 96-70-4800Gryxeawumgftu Authentication Interface Message TextNoUniversity Hospitals [facility] SystemTranscription Authentication Interface Message TextNoAtrium Health Wake Forest BaptistroHealth SystemB-HYDROXYBUTYRATEon 07-10-2023 B-HYDROXYBUTYRATE1.13 mmol/LHigh0.02-0.27The [facility] SystemComment on above: Order Comment: Reference Range: Normal: 0.02 - 0.27 mmol/L Ketosis: > 0.30 mmol/L Possible Ketoacidosis: > 0.50 mmol/LNote updated reference ranges. Performed By: #### BHY, CH8 ####[facility] PATHOLOGY MFFSXEBRVD6092 [place], [address]Rigu hydroxybutyrate [Moles/Vol]1.13 mmol/LHigh 0.02 - 0.27 mmol/LTHE [facility] SYSTEMInterpretation and review of laboratory resultsAbnoSt. Francis Hospital SYSTEMTHE [facility] SYSTEMTHE [facility] [address] HOSPITALBASIC METABOLIC PANELon 20-31-5804Uvjkq gap [Moles/Vol]13 mmol/LNormal 10-20The [facility] SystemComment on above:Performed By: #### DEYA, HUBER8 ####S PATHOLOGY CVTUAWNDNR6157 [place], [address]Txfsmss [Mass/Vol]8.4 mg/dLLow8.6-10.3The [facility] SystemComment on above:Performed By: #### DEYA, HUBER8 ####S PATHOLOGY NYECSNEMAX1789 [place], [address]Erttitfq [Moles/Vol]108 mmol/RFqpn41-050Fcf [facility] Comment on above:Performed By: #### DEYA, HUBER8 ####S PATHOLOGY CJMANDPRRZ0335 [place], [address]MC9 [Moles/Vol]24 mmol/NAsxidq08-81Zop [facility] SystemComment on above:Performed By: #### DEYA, HUBER8 ####S PATHOLOGY DADDYLBDDC3728 [place], [address]Svtrlhocrd [Mass/Vol]0.47 mg/dLLow0.60-1.20The [facility] SystemComment on above:Performed By: #### DEYA, HUBER8 ####S PATHOLOGY KOFDVAHOZY8627 [place], [address]FHGBLYQYJ GFR (CKD-EPI)111 mL/min/1.73sqmNormal>=60The [facility] SystemComment on above:Result Comment: 2020 CKD EPI [...] Inclusion of Race in Diagnosing Kidney Disease. [place] Journal of Kidney Diseases 2021;79(2):268-88.e1.2. N Engl J Med 1 Vol. 385 Issue 19 Pages 8997-7271Performed By: #### DEYA, HUBER8 ####S PATHOLOGY ZJVOYBRQFF7094 [place], [address]Ptrvlvi [Mass/Vol]221 mg/bXSjmj84-499Ngs [facility] HospitalroHealth SystemComment on above:Performed By: #### DEYA, HUBER8 ####S PATHOLOGY YOEOIVKTDI5261 [place], Potassium [Moles/Vol]4.2 mmol/LNormal3.5-5.0The [facility] HospitalroHealth SystemComment on above:Performed By: #### DEYA, HUBER8 ####S PATHOLOGY VOWMCIGZNP5041 [place], [address]Lxvalp [Moles/Vol]141 mmol/CQeflsw099-360Iim [facility] HospitalroHealth SystemComment on above:Performed By: #### DEYA, HUBER8 ####[facility] PATHOLOGY ELHASZDQQD6497 [place], [address]Idru nitrogen [Mass/Vol]13 mg/dLNormal7-25The [facility] HospitalroHealth SystemComment on above:Performed By: #### DEYA, HUBER8 ####S PATHOLOGY OOXGAAGTCE1479 [place], [address]Cnzqy gap [Moles/Vol]13 mmol/RBggvtr93-25Ald [facility] HospitalroHealth SystemComment on above:Performed By: #### CH8 ####S PATHOLOGY BYLNOOAXAC7409 [place], [address]Oiexbts [Mass/Vol]8.0 mg/dLLow8.6-10.3The [facility] SystemComment on above:Performed By: #### CH8 ####S PATHOLOGY OMZQDBYJSJ0678 [place], [address]Ahljsnzy [Moles/Vol]106 mmol/CBnojvg43-433Lyy [facility] HospitalroHealth SystemComment on above:Performed By: #### CH8 ####S PATHOLOGY LHGVZHHAEU0321 [place], [address]PY7 [Moles/Vol]23 mmol/TWqztkd73-36Jyy [facility] SystemComment on above:Performed By: #### CH8 ####[facility] PATHOLOGY PWCXQVVUSH5480 [place], [address]Bppnhgswkx [Mass/Vol]0.45 mg/dLLow0.60-1.20The [facility]ro[facility] System Comment on above:Performed By: #### CH8 ####[facility] PATHOLOGY MAWSKIROGK4283 [place], [address]BMFUGHXKJ GFR (CKD-EPI)112 mL/min/1.73sqmNormal>=60The [facility] SystemComment on above:Result Comment: 2020 CKD EPI [...] Inclusion of Race in Diagnosing Kidney Disease. [place] Journal of Kidney Diseases 2021;79(2):268-88.e1.2. N Engl J Med 1 Vol. 385 Issue 19 Pages 1973-3920Performed By: #### CH8 ####[facility] PATHOLOGY HBFVPFEIHZ0623 [place], [address]Gbcjbsz [Mass/Vol]328 mg/zANihx66-578 [facility] SystemComment on above:Performed By: #### CH8 ####[facility] PATHOLOGY [id number] [place], [address]Beixhzdql [Moles/Vol] 4.5 mmol/LNormal3.5-5.0[facility] SystemComment on above:Performed By: #### CH8 ####[facility] PATHOLOGY [id number] [place], [place], Sodium [Moles/Vol]137 mmol/ENozgyg619-505Shk [facility]ro[facility] SystemComment on above: Performed By: #### CH8 ####S PATHOLOGY [id number] [place], [address]Bewo nitrogen [Mass/Vol]11 mg/dLNormal7-25[facility] SystemComment on above:Performed By: #### CH8 ####[facility] PATHOLOGY [id number] [place], [address]PIGKH GAS, VENOUSon [id number] ABEV-0.6 mmol/LNormal-2.0-3.0The [facility] HospitalroHealth SystemComment on above:Performed By: #### CR BGV ####[facility] PATHOLOGY VTANGYBDTN[address] [place] [address], [address]GY VCM2Y91 mmol/XZoewyt20-43Adp [facility] Comment on above:Performed By: #### CR BGV ####[facility] PATHOLOGY UZTKHNFSPD[address] [place] [address], [address]KJ PHV7.010Ujhrbq3.320-7.430The [facility] HospitalHealth SystemComment on above:Performed By: #### CR BGV ####[facility] PATHOLOGY MISJNIBEUH[address] [place] [address], [address]QL IVNT988.5 mm Hg Bvzblc27.0-51.0The [facility] HospitalroHealth SystemComment on above:Performed By: #### CR BGV ####[facility] PATHOLOGY LIZATOHTXF[address] [place] [address], [address]JG GKI874 mm RaAjhlel55-80Shv [facility] HospitalHealth SystemComment on above:Performed By: #### CR BGV ####[facility] PATHOLOGY RVAPOOBXGA[address] [place] [address], [phone] (CATEGORY)Room AirNoUniversity Hospitals Elyria Medical Center SystemComment on above: Performed By: #### CR BGV ####[facility] PATHOLOGY FOVIMRIWSJ[address] [place] [address], [address]BSQREoz IndicatedGuthrie Cortland Medical Center System Comment on above:Result Comment: room airPerformed By: #### CR BGV ####[facility] PATHOLOGY UDDRJVNFLZ[address] [place] [address], [address]Klfdzn saturation in Blood76.6 %Kukmqe07.0-80.0The [facility] SystemComment on above: Performed By: #### CR BGV ####[facility] PATHOLOGY VBDTOFOGPM[address] [place] [address], [address]Oljo excess Calc (BldV) [Moles/Vol]-0.6000 mmol/L- 2.0 - [...] Work Phone: pH (BldV)7.372 [pH]7.320 - 7.430[facility] Work Phone: [facility] Work Phone: CR ABEV-8.1 mmol/LLow-2.0-3.0The [facility] Comment on above:Performed By: #### CR BGV, CR GLU, LACT, CR ICA, CR LYTES, CR COOX ####[facility] PATHOLOGY FDCYULSSIM9126IdnaiCorqys[address] [place] [address], CR EWY9P15 mmol/GPzh64-66Iqe MetroXeros SystemComment on above:Performed By: #### CR BGV, CR GLU, LACT, CR ICA, CR LYTES, CR COOX ####[facility] PATHOLOGY MOGOXBYDWW9719IsteyLkqjac[address] [place] [address], [address]HR PHV7.248Low 7.320-7.430The [facility] HospitalroXeros SystemComment on above:Performed By: #### CR BGV, CR GLU, LACT, CR ICA, CR LYTES, CR COOX ####[facility] PATHOLOGY NFZVYFSZUP6910KgqasDuhglu[address] [place] [address], [address]FD NCVY644.9 mm ZkCrhgqz45.0-51.0The [facility] HospitalHealth SystemComment on above:Performed By: #### CR BGV, CR GLU, LACT, CR ICA, CR LYTES, CR COOX ####[facility] PATHOLOGY HZNZRRFDZA7849TagieVwsfij[address] [place] [address], [address]OU PQV215 mm LaYrtj65-29Mpm [facility] SystemComment on above: Performed By: #### CR BGV, CR GLU, LACT, CR ICA, CR LYTES, CR COOX ####[facility] PATHOLOGY AUHYFRPCVI7938KdxnoOmxdqf[address] [place] [address], [address]Zpohxy saturation in Blood87.2 %High70.0-80.0The [facility] SystemComment on above: Performed By: #### CR BGV, CR GLU, LACT, CR ICA, CR LYTES, CR COOX ####[facility] PATHOLOGY QYEGFCCOYB0212JnafeYjasxu[address] [place] [address], [address]YR ABEV-13.4 mmol/LLow-2.0-3.0The [facility] SystemComment on above:Performed By: #### CR GLU, CR LYTES, CR COOX, CR BGV, CR ICA, LACT ####[facility] PATHOLOGY XAGITDPPLP[address] [place] [address], 29[address]EL EMZ7Q63 mmol/DZtl34-07Kub [facility] SystemComment on above:Performed By: #### CR GLU, CR LYTES, CR COOX, CR BGV, CR ICA, LACT ####[facility] PATHOLOGY MWMDVOYTDH4436OxdbeHlcggp[address] [place] [address], [address]WS PHV7.647Nbq0.320-7.430The [facility] Comment on above:Performed By: #### CR GLU, CR LYTES, CR COOX, CR BGV, CR ICA, LACT ####[facility] PATHOLOGY RYZCYZMVXG9042KgmayFtnavr[address] [place] [address], CR WSTK862.5 mm HgLow41.0-51.0The [facility] SystemComment on above:Performed By: #### CR GLU, CR LYTES, CR COOX, CR BGV, CR ICA, LACT ####[facility] PATHOLOGY XRYVANGSIH5003JtsyfBycgwe[address] [place] [address], [address]KM SJS849 mm DxZpyp19-22 The [facility] SystemComment on above:Performed By: #### CR GLU, CR LYTES, CR COOX, CR BGV, CR ICA, LACT ####[facility] PATHOLOGY XNYGOWRQGI5164EalwmJuujpe[address] [place] [address], [address]Mjiyhn saturation in Blood86.3 %High70.0-80.0The [facility] SystemComment on above:Performed By: #### CR GLU, CR LYTES, CR COOX, CR BGV, CR ICA, LACT ####S PATHOLOGY HCHSBTOVVZ4451MsvirUharnf[address] [place] [address], [address]Sdeg excess Calc (BldV) [Moles/Vol]-8.1000 mmol/L Low-2.0 - [...] BLOOD GAS, VENOUSOrdered By: Chip Wade on 32-53-4025Ycmq excess Calc (BldV) [Moles/Vol]-13.78922 mmol/LLow-2.0 - 3.0 mmol/LTHE [facility]ALTH SYSTEMCO2 (BldV) [Partial pressure]30.5 mm[Hg]LowTHE [facility]RO[facility]ALTH SYSTEMHCO3 (Bld) [Moles/Vol]13 mmol/LLow21 - 28 mmol/LTHE [facility] SYSTEMInterpretation and review of laboratory resultsAbAngel Medical Center [facility] SYSTEMOxygen (BldV) [Partial pressure]62 mm[Hg]HighTHE [facility]RO[facility]ALTH SYSTEMOxygen saturation in Venous blood86.3 %High70.0 - 80.0 %THE [facility] SYSTEMpH (BldV)7.238 [pH]Low7.320 - 7.430THE [facility] SYSTEMSCCI H[facility]RO[facility]ALTH SYSTEMBasic 1999 panelOrdered By: Mali Pompa on 07-10-2023 Anion gap [Moles/Vol]13 mmol/L10 - 20THE [facility] SYSTEMCalcium [Mass/Vol]8.4 mg/dLLow8.6 - 10.3 mg/dLTHE [facility]ALTH SYSTEMChloride [Moles/Vol]108 mmol/L High98 - 107 mmol/LTHE [facility] SYSTEMCO2 [Moles/Vol]24 mmol/L21 - 31 mmol/L [facility] SYSTEMCreatinine [Mass/Vol]0.47 mg/dLLow0.60 - 1.20 mg/dLTHE [facility]ALTH SYSTEMGFR/1.73 sq M.predicted CKD-EPI (S/P/Bld) [Vol rate/Area]111- PINFTHE [facility] SYSTEMGlucose [Mass/Vol]221 mg/xLZjof31 - 109 mg/dLTHE [facility] SYSTEMInterpretation and review of laboratory resultsAbnoAtrium Health Wake Forest Baptist Medical CenterROHEALTH SYSTEMPotassium [Moles/Vol]4.2 mmol/L3.5 - 5.0 mmol/LTHE [facility] SYSTEMSodium [Moles/Vol]141 mmol/L136 - 145 mmol/LTHE [facility] SYSTEMUrea nitrogen [Mass/Vol]13 mg/dL7 - 25 mg/dLTHE [facility] SYSTEMTHE [facility]ALTH SYSTEMBasic metabolic 1999 panelon [id number] gap [Moles/Vol]13 mmol/L10 - 20THE [facility] SYSTEMCalcium [Mass/Vol]8.0 mg/dLLow8.6 - 10.3 mg/dLTHE [facility] SYSTEMChloride [Moles/Vol]106 mmol/L98 - 107 mmol/LTHE [facility] SYSTEMCO2 [Moles/Vol]23 mmol/L21 - 31 mmol/LTHE [facility] SYSTEMCreatinine [Mass/Vol]0.45 mg/dLLow0.60 - 1.20 mg/dLTHE [facility] SYSTEMGFR/1.73 sq M.predicted CKD-EPI (S/P/Bld) [Vol rate/Area]112- PINFTHE [facility] Glucose [Mass/Vol]328 mg/cCBwuo18 - 109 mg/dLTHE [facility]WORKRO[facility] SYSTEM Interpretation and review of laboratory resultsAbnormalTHE [facility]RO[facility] Potassium [Moles/Vol]4.5 mmol/L3.5 - 5.0 mmol/LTHE [facility] SYSTEMSodium [Moles/Vol]137 mmol/L136 - 145 mmol/LTHE [facility] SYSTEMUrea nitrogen [Mass/Vol]11 mg/dL7 - 25 mg/dLTHE [facility] SYSTEMTHE [facility] CALCIUM, IONIZEDon [id number] ICA1.24 mmol/LNormal1.15-1.33The [facility] SystemComment on above:Result Comment: This test was developed, and its performance characteristics determined by the Department of Pathology of The [facility]. It has not been cleared or approved by the FDA. This test is used for clinical purposes only.Performed By: #### CR BGV, CR GLU, LACT, CR ICA, CR LYTES, CR COOX ####[facility] PATHOLOGY WWYZKQEJAO9534EkzefLjygzd[address] [place] [address], [address]IF ICA1.15 mmol/LNormal1.15-1.33The [facility] SystemComment on above:Result Comment: This test was developed, and its performance characteristics determined by the Department of Pathology of The [facility]. It has not been cleared or approved by the FDA. This test is used for clinical purposes only.Performed By: #### CR GLU, CR LYTES, CR COOX, CR BGV, CR ICA, LACT ####[facility] PATHOLOGY ULGJZGQBSO0268TaljvFzmipn[address] [place] [address], [address]Gqmrskv.ionized (Bld) [Moles/Vol]1.24 mmol/L1.15 - 1.33 mmol/LTHE ST. [facility] HEALTH SYSTEMOPNET Technologies, Inc[employer] SYSTEM Work Phone: Interpretation and review of laboratory resultsNormal THE [facility] SYSTEMOPNET Technologies, Inc. SYSTEM Work Phone: THE [employer] SYSTEM Work Phone: Calcium.ionized (Bld) [Moles/Vol]1.15 mmol/L1.15 - 1.33 mmol/LTHE [facility] Work Phone: Interpretation and review of laboratory resultsNormal [facility] Work Phone: [facility] Work Phone: CBC panel Auto (Bld)on [id number] distribution width (RBC) [Ratio]17.7 %High11.5 - 14.5 %[facility] Hematocrit (Bld) [Volume fraction]24.2 %Low36.0 - 46.0 %[facility] Hemoglobin (Bld) [Mass/Vol]7.8 g/dLLow12.0 - 15.0 g/dLTHE [facility] Interpretation and review of laboratory resultsAbnormalTHE [facility]RO[facility]ALTH SYSTEMMCH (RBC) [Entitic mass]28.7 pg26.0 - 34.0 pgTHE METROHEALTH SYSTEMMCHC (RBC) [Mass/Vol]32.3 g/dL32.0 - 35.9 g/dLTHE [facility]RO[facility]ALTH SYSTEMMCV (RBC) [Entitic vol] 89 fL80 - 100 fLTHE METROHEALTH SYSTEMPlatelet mean volume (Bld) [Entitic vol] 7.3 fLLow7.5 - 11.2 fLTHE METROHEALTH SYSTEMPlatelets (Bld) [#/Vol]633 10*3/uL Dugg299 - 400 K/uLTHE [facility]RO[facility]ALTH SYSTEMRBC (Bld) [#/Vol]2.72 10*6/uLLowTHE [facility]RO[facility]ALTH SYSTEMWBC (Bld) [#/Vol]7.2 10*3/uL4.5 - 11.5 K/uLTHE [facility] SYSTEMTHE [facility]ALTH SYSTEMCO-OXIMETERon 92-28-4715EMONXXQLCULSGSFRN5.0 %High 0.5-1.5The [facility] SystemComment on above:Performed By: #### CR BGV, CR GLU, LACT, CR ICA, CR LYTES, CR COOX ####[facility] PATHOLOGY TQYCPROPNA1270NxxuyOolexb[address] [place] [address], [address]PP HBMET0.8 %Normal0.0-1.5The [facility] Comment on above:Performed By: #### CR BGV, CR GLU, LACT, CR ICA, CR LYTES, CR COOX ####[facility] PATHOLOGY TGIVQONMNE1326NsgnsOzjpke[address] [place] [address], Hematocrit (Bld) [Volume fraction]24.6 %Low38.0-46.0The [facility]ro[facility] Comment on above:Performed By: #### CR BGV, CR GLU, LACT, CR ICA, CR LYTES, CR COOX ####[facility] PATHOLOGY SYSCIEYDMC8372CzkygDebpky[address] [place] [address], Hemoglobin (Bld) [Mass/Vol]7.9 g/dLLow12.0-16.0The [facility] SystemComment on above:Performed By: #### CR BGV, CR GLU, LACT, CR ICA, CR LYTES, CR COOX ####[facility] PATHOLOGY NVNNWYQRPE8834EkqsbDksbej[address] [place] [address], [address]DZIROEXYULRRT 84.8 %Low94.0-98.0The [facility] SystemComment on above:Performed By: #### CR BGV, CR GLU, LACT, CR ICA, CR LYTES, CR COOX ####[facility] PATHOLOGY JXIBDHOXJR[address] [place] [address], [address]AZYMXSMDPHVZJZGDG3.4 %Normal0.5-1.5The [facility] SystemComment on above:Performed By: #### CR GLU, CR LYTES, CR COOX, CR BGV, CR ICA, LACT ####[facility] PATHOLOGY ITQHRTMYZA1053UjzsjUqywxd[address] [place] [address], [address]NY HBMET2.2 %High0.0-1.5The [facility] Comment on above:Performed By: #### CR GLU, CR LYTES, CR COOX, CR BGV, CR ICA, LACT ####[facility] PATHOLOGY IMGHLOPBCP9493UgbvqZaakgn[address] [place] [address], Hematocrit (Bld) [Volume fraction]18.3 %Critically low38.0-46.0The [facility] SystemComment on above:Performed By: #### CR GLU, CR LYTES, CR COOX, CR BGV, CR ICA, LACT ####[facility] PATHOLOGY SOOXAVGSTT9948SuzmhWmbsrc[address] [place] [address], [address]Dsaolnjasw (Bld) [Mass/Vol]g/dLCritically low12.0-16.0The [facility] HospitalGoojetHealth SystemComment on above:Performed By: #### CR GLU, CR LYTES, CR COOX, CR BGV, CR ICA, LACT ####[facility] PATHOLOGY GZTHJCGBYN7471HqaxuLyhpyq[address] [place] [address], [address]ZRTFHCFGISCNI89.2 %Low94.0-98.0The [facility] HospitalroHealth SystemComment on above: Performed By: #### CR GLU, CR LYTES, CR COOX, CR BGV, CR ICA, LACT ####[facility] PATHOLOGY OYPJJBEIQZ8284EbamfYbzhva[address] [place] [address], Carboxyhemoglobin (BldA) [Mass fraction]2.0 %High0.5 - 1.5 %THE [employer] SYSTEM Work Phone: Hematocrit (BldA) [Volume fraction]24.6 %Low38.0 - 46.0 %THE [employer] SYSTEM Work Phone: [phone] (Bld) [Mass/Vol]7.9 g/dLLow12.0 - 16.0 g/dL THE [employer] SYSTEM Work Phone: Methemoglobin (BldA) [Mass fraction]0.8 %0.0 - 1.5 % THE [employer] SYSTEM Work Phone: Oxyhemoglobin (BldA) [Mass fraction]84.8 %Low94.0 - 98.0 %THE [employer] SYSTEM Work Phone: Carboxyhemoglobin (BldA) [Mass fraction]1.4 %0.5 - 1.5 %THE [employer] SYSTEM Work Phone: Hematocrit (BldA) [Volume fraction]18.3 %Critically low38.0 - 46.0 %THE [employer] SYSTEM Work Phone: [phone] (Bld) [Mass/Vol]g/dLCritically low12.0 - 16.0 g/dLTHE [employer] SYSTEM Work Phone: Interpretation and review of laboratory results AbnormalTHE [employer] SYSTEM Work Phone: Methemoglobin (BldA) [Mass fraction]2.2 %High0.0 - 1.5 %THE [employer] SYSTEM Work Phone: Oxyhemoglobin (BldA) [Mass fraction]83.2 %Low94.0 - 98.0 %THE [employer] SYSTEM Work Phone: THE [employer] SYSTEM Work Phone: COMPLETE BLOOD COUNTon 93-11-4569Pqspkpcwhil distribution width (RBC) [Ratio]17.7 %High11.5-14.5The [facility] HospitalWorkCast SystemComment on above:Performed By: #### CBC ####[facility] PATHOLOGY DIVJYZIETG[address] [place] [address], #### HB A1C ####[facility] PATHOLOGY LABORATORY [address] [place] [address], [address]Yjeruwnbeh (Bld) [Volume fraction]24.2 %Low36.0-46.0The [facility] HospitalXeros SystemComment on above: Performed By: #### CBC ####[facility] PATHOLOGY VACATBZGJV[address] [place] [address], #### HB A1C ####[facility] PATH[facility]ORATORY [address] [place] [address], [address]Tabwcyduzn (Bld) [Mass/Vol]7.8 g/dLLow12.0-15.0The [facility] SystemComment on above:Performed By: #### CBC ####[facility] PATHOLOGY CCWQUQZFBJ4914[address] [place] [address], #### HB A1C ####[facility] PATH[facility] LABORATORY [address] [place], [place], [address]TVY (RBC) [Entitic mass]28.7 pg Lvcchw01.0-34.0The [facility] SystemComment on above:Performed By: #### CBC ####[facility] PATHOLOGY EQDVKWZXVJ[address] [place] [address], [place], #### HB A1C ####[facility] PATHOLOG[facility] LABORATORY [address], [place], [address]MWYJ (RBC) [Mass/Vol]32.3 g/eJInmmvz32.0-35.9 The [facility] SystemComment on above:Performed By: #### CBC ####[facility] PATHOLOGY VCQPCGTTHC[address] [place] [address], #### HB A1C ####[facility] PATHOLOG[facility] LABORATORY [address] [place], [place], [address]HKW (RBC) [Entitic vol]89 hUMebrbm11-543Ozv [facility] HospitalroHealth SystemComment on above:Performed By: #### CBC ####[facility] PATHOLOGY DRYHZVLKVJ[address] [place] [address], #### HB A1C ####[facility] PATHOLOG[facility] LABORATORY [address] [place], [place], [address]Nsunfghu mean volume (Bld) [Entitic vol]7.3 fLLow7.5-11.2The [facility] HospitalroHealth SystemComment on above: Performed By: #### CBC ####[facility] PATHOLOGY ILHAYOYEBP[address] [place] [address], #### HB A1C ####[facility] PATHOLOG[facility] LABORATORY [address] [place], [place], [address]Fxogztwav (Bld) [#/Vol]633 10*3/uZWbya421-193Hyn [facility] HospitalroHealth SystemComment on above:Performed By: #### CBC ####[facility] PATHOLOGY XAQIFKSKEG[address] [place] [address], #### HB A1C ####[facility] PATHOLOGY LABORATORY [address] [place], [place], [address]ABM (Bld) [#/Vol]2.72 10*6/uLLow 4.00-5.20The [facility] SystemComment on above:Performed By: #### CBC ####[facility] PATHOLOGY GFEPCWPVGD[address] [place] [address], #### HB A1C ####[facility] PATHOLOGY LABORATORY [address] [place], [place], [address]URY (Bld) [#/Vol]7.2 10*3/uLNormal4.5-11.5The [facility] SystemComment on above:Performed By: #### CBC ####[facility] PATHOLOGY WDYBXHFLWL[address] [place] [address], #### HB A1C ####[facility] PATH[facility] LABORATORY [address] [place], [place], [address]Oiir Plan Noteon [id number] Authentication Interface Message TextNoUniversity Hospitals Elyria Medical Center SystemConsultson [id number] Authentication Interface Message TextNoUniversity Hospitals Elyria Medical Center SystemTranscription Authentication Interface Message TextGuthrie Cort[facility] Medical Center SystemDiabetes tracking panelOrdered By: Karthikeyan Christopher on 88-04-4434Zpgpfpo glucose Estimated from glycated hemoglobin (Bld) [Mass/Vol]143 mg/dLTHE [facility] FHXWRRPpV9d (Bld) [Mass fraction]6.6 % High4.0 - 5.6 %THE [facility] SYSTEMInterpretation and review of laboratory resultsAbnoSt. Francis Hospital SYSTEMTHE [facility] SYSTEMELECTROLYTESon 78-41-1092Svwzkqbv [Moles/Vol]108 mmol/ZYopg79-516Opf [facility] SystemComment on above:Performed By: #### CR BGV, CR GLU, LACT, CR ICA, CR LYTES, CR COOX ####[facility] PATHOLOGY VHLAJLVHCP3584LmgzeJleypu[address] [place] [address], [address]QEZ3 (Bld) [Moles/Vol]18 mmol/SOtz99-06Qjw [facility] SystemComment on above: Performed By: #### CR BGV, CR GLU, LACT, CR ICA, CR LYTES, CR COOX ####[facility] PATHOLOGY IQSCQBXWPW0310KxkreXzfrtj[address] [place] [address], [address]Dsyvgwxqr [Moles/Vol]3.3 mmol/LLow3.5-5.0The [facility] SystemComment on above:Performed By: #### CR BGV, CR GLU, LACT, CR ICA, CR LYTES, CR COOX ####[facility] PATHOLOGY VTKZLXZIXY0133EgrkoDziqec[address] [place] [address], [address]Ygegew [Moles/Vol]142 mmol/RZvsgcd470-313Nep [facility] SystemComment on above:Performed By: #### CR BGV, CR GLU, LACT, CR ICA, CR LYTES, CR COOX ####[facility] PATHOLOGY AINJEHTLNA[address] [place] [address], [address]Sezhrvlx [Moles/Vol]107 mmol/LNormal 98-107The [facility] SystemComment on above:Performed By: #### CR GLU, CR LYTES, CR COOX, CR BGV, CR ICA, LACT ####[facility] PATHOLOGY EAOXFNIISQ7385CepjcKcbipl[address] [place] [address], [address]FGZ1 (Bld) [Moles/Vol]13 mmol/SPxf66-10Cfg [facility] SystemComment on above:Performed By: #### CR GLU, CR LYTES, CR COOX, CR BGV, CR ICA, LACT ####[facility] PATHOLOGY EDYEWMKUFM1696BdzdvUkhqlc[address] [place] [address], [address]Sapdrccij [Moles/Vol]3.4 mmol/LLow3.5-5.0The [facility] SystemComment on above:Performed By: #### CR GLU, CR LYTES, CR COOX, CR BGV, CR ICA, LACT ####[facility] PATHOLOGY VFAXSTSKMD8282WyrjmGmxrko[address] [place] [address], [address]Ghgfrq [Moles/Vol]138 mmol/SVivzus322-707Unn [facility] SystemComment on above:Performed By: #### CR GLU, CR LYTES, CR COOX, CR BGV, CR ICA, LACT ####[facility] PATHOLOGY FTFQNVZLHO0616BzethSsewxr[address] [place] [address], [address]Oovqknum [Moles/Vol]108 mmol/LHigh98 - 107 mmol/L [facility]WORK[facility] [employer] SYSTEM Work Phone: HCO3 (Bld) [Moles/Vol]18 mmol/LLow21 - 28 mmol/LTHE [facility]WORKROOP[facility] SYSTEM Work Phone: Interpretation and review of laboratory results AbnormalTHE [facility] NETWORKROOPNET [facility] SYSTEM Work Phone: Potassium [Moles/Vol]3.3 mmol/LLow3.5 - [...] [facility] Work Phone: GLUCOSE, FINGERSTICK-IN OFFICEon 55-02-5310Pberhsg [Mass/Vol]71 mg/mEWpxpvv61-912Erk [facility] SystemComment on above:Performed By: #### [address]5825 ####NURSING GLUCOSE WHRWDYO5027 [place], [place], [address]Czpbofi [Mass/Vol]71 mg/dL68 - 110 mg/dLTHE [facility] Interpretation and review of laboratory resultsNormCarilion New River Valley Medical CenterROHEALTH SYSTEMTHE [facility]ALTH SYSTEMGlucose [Mass/Vol]75 mg/iUEqvbsb59-370Xaa [facility] Comment on above:Performed By: #### [id number] ####NURSING GLUCOSE HEOVQGI12[address] [place], [place], [address]Upgcxpc [Mass/Vol]75 mg/dL68 - 110 mg/dLTHE [facility] SYSTEMInterpretation and review of laboratory resultsNormalTHE [facility] SYSTEMTHE [facility]ALTH SYSTEMGlucose [Mass/Vol]233 mg/xWAakd22-057Nlf [facility] HospitalroHealth SystemComment on above:Performed By: #### [id number] ####NURSING GLUCOSE VNKFFUI1567 [place], [place], [address]Biudjge [Mass/Vol]289 mg/dL Eknf87-009Huj [facility] HospitalroSelect [facility] SystemComment on above:Performed By: #### 77825 ####NURSING GLUCOSE QMIOOWF6945 [place], [place], [address]Sxbpmti [Mass/Vol]233 mg/bZOozy44 - 110 mg/dLTHE [facility] SYSTEMInterpretation and review of laboratory resultsAbnoAtrium Health Wake Forest Baptist Medical CenterROHEALTH SYSTEMTHE [facility] Glucose [Mass/Vol]374 mg/jNUvde99-721Fuv [facility] HospitalroHealth SystemComment on above: Result Comment: Will Repeat TestNotified ALISTAIR KEY MDPerformed By: #### [id number] ####NURSING GLUCOSE [id number] [place], [place], [address]Dzqxroj [Mass/Vol]400 mg/oXDuuk79-831Vov [facility] HospitalroHealth SystemComment on above:Performed By: #### [id number] ####NURSING GLUCOSE [id number] [place], [place], [address]Jwnamyr [Mass/Vol]289 mg/hQDxgt41 - 110 mg/dLTHE [facility]RO[facility] SYSTEM Interpretation and review of laboratory resultsAbGrand Lake Joint Township District Memorial HospitalROHEALTH SYSTEMGlucose [Mass/Vol]450 mg/bMEsrg30-854Hjq [facility] Hospitalro[facility] System Comment on above:Performed By: #### [id number] ####NURSING GLUCOSE [id number] [place], [place], [address]Ytugokx [Mass/Vol]374 mg/wFOupp80 - 110 mg/dLTHE METROHEALTH SYSTEMInterpretation and review of laboratory results AbnormalTHE UNIVERS[facility] NETWORKROHEALTH SYSTEMTHE METROHEALTH SYSTEMGlucose [Mass/Vol]400 mg/dL High68 - 110 mg/dLTHE METROHEALTH SYSTEMInterpretation and review of laboratory resultsAbnormCarilion New River Valley Medical CenterROOHIOHEALTH [facility] SYSTEMTHE [facility] NETWORKROHEALTH SYSTEMGlucose [Mass/Vol]450 mg/vJYeou48 - 110 mg/dLTHE METROHEALTH SYSTEMInterpretation and review of laboratory resultsAbnoAtrium Health Wake Forest Baptist Medical CenterROOHIOHEALTH [facility]ICKER[facility]IST [facility]ITAL SYSTEMTHE [facility] NETWORKROHEALTH SYSTEMGlucose [Mass/Vol]313 mg/sPBmbx96-305Izm [facility] HospitalroHealth SystemComment on above:Performed By: #### [id number] ####NURSING GLUCOSE [id number] [place] [address], [address]MJASJCD, WHOLE BLOODon [id number] GLU> [id number] [facility] HospitalHealth SystemComment on above:Performed By: #### CR BGV, CR GLU, LACT, CR ICA, CR LYTES, CR COOX ####[facility] PATHOLOGY [id number] [place] [address], [id number] VTX254 mg/bVFxjr46-262Epf [facility] SystemComment on above: Performed By: #### CR GLU, CR LYTES, CR COOX, CR BGV, CR ICA, LACT ####[facility] PATHOLOGY [id number] [place] [address], [address]Ngduevc [Mass/Vol]mg/bQNrip98 - 105 mg/dLTHE [facility] Work Phone: Glucose [Mass/Vol]257 mg/eLKohe24 - 105 mg/dLTHE [facility] Work Phone: Interpretation and review of laboratory results AbnormalTHE [facility] Work Phone: [facility] Work Phone: H AND Grayson [phone] Authentication Interface Message TextNoUniversity Hospitals Elyria Medical Center SystemHEMOGLOBIN A1Con 07-10-2023 Glucose [Mass/Vol]143 mg/dLNoUniversity Hospitals Elyria Medical Center SystemComment on above: Performed By: #### CBC ####[facility] PATHOLOGY RPWVWDNITA4368 [place], [place], #### HB A1C ####[facility] PATHOLOGY LABORATORY [address] [place], [place], [address]ReB5x (Bld) [Mass fraction]6.6 %High4.0-5.6The [facility] SystemComment on above:Performed By: #### CBC ####[facility] PATHOLOGY RMLYCJBFXQ[address] [place] [address], #### HB A1C ####S [facility] PATHOLOGY LABORATORY [address] [place], [place], [address]MNWSSU ACIDon 97-41-1574LX LACT4.2 mmol/LCritically high0.5-1.6The [facility] SystemComment on above:Performed By: #### CR BGV, CR GLU, LACT, CR ICA, CR LYTES, CR COOX ####S PATHOLOGY GLLXTMWMUE4625PnkbvW[address]piw[address] [place] [address], [address]PV LACT> 10.0Critically high0.5-1.6The [facility] SystemComment on above:Performed By: #### CR GLU, CR LYTES, CR COOX, CR BGV, CR ICA, LACT ####[facility] PATHOLOGY AVRTPOZBWN0917YynkbLpmede[address] [place] [address], [address]Abfnecpzqfoeps and review of laboratory results AbnormalTHE [facility] Work Phone: Lactate [Moles/Vol]4.2 mmol/LCritically high0.5 - 1.6 mmol/LTHE [facility] Work Phone: [facility] Work Phone: Interpretation and review of laboratory results AbnormalTHE [facility] Work Phone: Lactate [Moles/Vol]mmol/LCritically high0.5 - 1.6 mmol/LTHE [facility] Work Phone: [facility] Work Phone: No Panel Informationon 71-67-4101Ilcclibgwottrw and review of laboratory resultsAbnormalTHE [facility] Work Phone: [facility] Work Phone: THE METROOP[employer] SYSTEMOP Noteon 07-10-2023 Foundation [employer]ger Authentication Interface Message TextNoGlenbeigh Hospitale [facility] HospitalroHealth System PARTIAL THROMBOPLASTIN TIMEon 98-53-3987lZNQ Coag (Bld) [Time]24 oWhv48-25Mvw [facility] SystemComment on above:Performed By: #### APTT, PT ####[facility] PATHOLOGY TCLNNWBNDI5055 [place], [address]vDZU Coag (Bld) [Time] 24 sLowTHE METROHEALTH SYSTEMInterpretation and review of laboratory results AbnormalTHE METROHEALTH SYSTEMPROTHROMBIN TIME AND INRon 36-20-7007VPE Coag (PPP) [Relative time]0.96 {INR}Normal0.90-1.10The [facility] HospitalroHealth SystemComment on above:Performed By: #### APTT, PT ####[facility] PATH[facility] IIBSCZJEHS[address] [place] [address], [address]IN Coag (PPP) [Time]10.8 sNormal9.7-12.9The [facility] HospitalroHealth SystemComment on above:Performed By: #### APTT, PT ####S PATHOLOGY IHNYDXUAOA[address] [place] [address], [address]KPG Coag (PPP) [Relative time]0.96 {INR}0.90 - 1.10THE [facility]WORKRO[facility]ALTH SYSTEMInterpretation and review of laboratory resultsNormalTHE [facility] NETWORKROOHIOHEALTH PICKERINGTON [facility] SYSTEMPT Coag (PPP) [Time]10.8 sTHE [facility] NETWORKROOHIOHEALTH PICKER[facility] SYSTEMProgress Noteson 34-79-7663Jlnimojrfynge Authentication Interface Message TextNoAtrium Health Wake Forest BaptistroHealth SystemTranscription Authentication Interface Message TextNoAtrium Health Wake Forest BaptistroHealth SystemTranscription Authentication Interface Message [id number]: Pt transported with this RN and FACILITIES MANAGEMENT EXECUTIVE to Preop for scheduled surgery. VSS pt alert and oriented x4. 1137: Pt back from OR in room 413 on 5W. Pt alert and oriented x4, VSS.NormalThe [facility] HospitalroHealth SystemTranscription Authentication Interface Message TextNormChildren's Hospital of Richmond at VCUroHealth SystemTranscription Authentication Interface Message TextNoAtrium Health Wake Forest BaptistroHealth SystemAnesthesia Preprocedure Evaluationon 89-83-1984Pcizpqoqpapqp Authentication Interface Message TextNormChildren's Hospital of Richmond at VCUroHealth SystemBASIC METABOLIC PANELon 36-71-1394Gmhbr gap [Moles/Vol]10 mmol/MBljqqo89-42Nwd [facility] HospitalroHealth SystemComment on above:Performed By: #### MG, PHOS, CH8 ####[facility] PATH[facility]Y UZIGAQJDOU[address] [place] [address], [address]Ruttjxw [Mass/Vol]8.1 mg/dLLow8.6-10.3The [facility] HospitalroHealth SystemComment on above:Performed By: #### BILL JAUREGUI CH8 ####[facility] PATHOLOGY YSSQOKSCSU6551 [place], [place], [address]Chloride [Moles/Vol]107 mmol/BQfxfth47-809Jcl [facility] HospitalroHealth SystemComment on above:Performed By: #### BILL JAUREGUI CH8 ####[facility] PATHOLOGY FEIZGWYEMH7082 [place], [address]NA1 [Moles/Vol]24 mmol/WZhfwqv42-56Xtt [facility] HospitalroHealth SystemComment on above:Performed By: #### BILL JAUREGUI CH8 ####[facility] PATHOLOGY XDFWIMWIYS2032 [place], [address]Qunsfpzzqt [Mass/Vol]0.49 mg/dLLow0.60-1.20The [facility] SystemComment on above:Performed By: #### BILL JAUREGUI CH8 ####S PATHOLOGY VMJKBPVWLP4413 [place], [address]NLYFBSEPG GFR (CKD-EPI)110 mL/min/1.73sqmNormal >=60The [facility] SystemComment on above:Result Comment: 2020 CKD EPI [...] Inclusion of Race in Diagnosing Kidney Disease. [place] Journal of Kidney Diseases 2021;79(2):26 8-88.e1.2. N Engl J Med 1 Vol. 385 Issue 19 Pages 1758-7949Performed By: #### BILL JAUREGUI CH8 ####[facility] PATHOLOGY RAVYZFDBWE4816 [place], [address]Etuutcg [Mass/Vol]321 mg/lFUwhn57-900Cdv [facility] SystemComment on above:Performed By: #### BILL JAUREGUI CH8 ####[facility] PATHOLOGY CCGTMUBJGG0972 [place], [address]Soksznqls [Moles/Vol]4.2 mmol/LNormal 3.5-5.0The [facility] HospitalroHealth SystemComment on above:Performed By: #### BILL JAUREGUI CH8 ####[facility] PATHOLOGY ZCXAWSGNWY7336 [place], [place], Sodium [Moles/Vol]137 mmol/DHyklpk317-443Vru [facility] HospitalroHealth SystemComment on above: Performed By: #### BILL JAUREGUI CH8 ####[facility] PATHOLOGY HPTNGVNTWD2044 [place], [address]Rszy nitrogen [Mass/Vol]11 mg/dLNormal7-25The [facility] HospitalroHealth SystemComment on above:Performed By: #### BILL JAUREGUI CH8 ####S PATHOLOGY HWAKUBXUYP7475 [place], [address]Snwua metabolic 2000 panelOrdered By: Toya Solis on 17-14-0941Ysmhd gap [Moles/Vol]10 mmol/L10 - 20THE [facility]ALTH SYSTEMCalcium [Mass/Vol]8.1 mg/dLLow 8.6 - 10.3 mg/dLTHE METROHEALTH SYSTEMChloride [Moles/Vol]107 mmol/L98 - 107 mmol/LTHE [facility]ALTH SYSTEMCO2 [Moles/Vol]24 mmol/L21 - 31 mmol/LTHE [facility] SYSTEMCreatinine [Mass/Vol]0.49 mg/dLLow0.60 - 1.20 mg/dLTHE [facility]ROHEALTH SYSTEMGFR/1.73 sq M.predicted CKD-EPI (S/P/Bld) [Vol rate/Area]110- PINFTHE METRO[facility]ALTH SYSTEMGlucose [Mass/Vol]321 mg/xCDgrs37 - 109 mg/dLTHE [facility]ALTH SYSTEMInterpretation and review of laboratory resultsAbnormalTHE [facility]RO[facility]ALTH SYSTEMPotassium [Moles/Vol]4.2 mmol/L3.5 - 5.0 mmol/LTHE [facility] SYSTEMSodium [Moles/Vol]137 mmol/L136 - 145 mmol/LTHE [facility]ALTH SYSTEMUrea nitrogen [Mass/Vol]11 mg/dL7 - 25 mg/dLTHE Vis[employer] SYSTEMTHE Suninfo InformationBlood Attestationon 12-50-4886Azvmhujuzedwf Authentication Interface Message TextNormalThe Home LeasingCBC panel Auto (Bld)on 07-09-2023 Erythrocyte distribution width (RBC) [Ratio]17.6 %High11.5 - 14.5 %THE [employer] SYSTEM Work Phone: Hematocrit (Bld) [Volume fraction]21.3 %Low36.0 - 46.0 %THE [employer] Work Phone: Hemoglobin (Bld) [Mass/Vol]7.2 g/dLLow12.0 - 15.0 g/dL THE [employer] Work Phone: Interpretation and review of laboratory results AbnormalTHE [employer] Work Phone: MCH (RBC) [Entitic mass]29.9 pg26.0 - 34.0 pgTHE [employer] SYSTEM Work Phone: MCHC (RBC) [Mass/Vol]33.8 g/dL32.0 - 35.9 g/dLTHE [employer] SYSTEM Work Phone: MCV (RBC) [Entitic vol]89 fL80 - 100 fLTHE [employer] SYSTEM Work Phone: Platelet mean volume (Bld) [Entitic vol]7.1 fLLow7.5 - 11.2 Community HealthHE [facility] SYSTEM Work Phone: Platelets (Bld) [#/Vol]758 10*3/aXYrhm368 - 400 K/uL THE [employer] SYSTEM Work Phone: RBC (Bld) [#/Vol]2.40 10*6/uLLowTHE [employer] SYSTEM Work Phone: WBC (Bld) [#/Vol]7.7 10*3/uL4.5 - 11.5 K/uLTHE [employer] SYSTEM Work Phone: [facility] SYSTEM Work Phone: COMPLETE BLOOD COUNTon 23-07-0106Kiirplwiuyu distribution width (RBC) [Ratio]17.6 %High11.5-14.5The [facility] HospitalHealth SystemComment on above:Performed By: #### CBC ####[facility] PATHOLOGY OCUBPFYSXR[address] [place] [address], [address]Mwecgnlxnl (Bld) [Volume fraction]21.3 %Low 36.0-46.0The [facility] HospitalroHealth SystemComment on above:Performed By: #### CBC ####[facility] PATHOLOGY WUOPTDPOSV[address] [place] [address], [address]Qrorgrwuna (Bld) [Mass/Vol]7.2 g/dLLow12.0-15.0The [facility] HospitalHealth SystemComment on above: Performed By: #### CBC ####[facility] PATHOLOGY AVLNGYZTTA980[address] [place] [address], [address]MJX (RBC) [Entitic mass]29.9 ycAijuzi79.0-34.0The [facility] HospitalHealth SystemComment on above:Performed By: #### CBC ####[facility] PATHOLOGY RQFHTPIDVO64[address] [place] [address], [address]YRKZ (RBC) [Mass/Vol] 33.8 g/oANcicof23.0-35.9The [facility] SystemComment on above:Performed By: #### CBC ####[facility] PATHOLOGY IIUDITYWKL357[address] [place] [address], [address]OMQ (RBC) [Entitic vol]89 fGNdgcyy98-703Kvl [facility] SystemComment on above:Performed By: #### CBC ####[facility] PATHOLOGY JTUOYVARRD[address] [place] [address], [address]Cgcwtdyv mean volume (Bld) [Entitic vol]7.1 fLLow 7.5-11.2The [facility] HospitalHealth SystemComment on above:Performed By: #### CBC ####[facility] PATHOLOGY QFPRSAWTAW[address] [place] [address], [address]Lsejnehlf (Bld) [#/Vol]758 10*3/iJNtzj082-868Oqa [facility] SystemComment on above: Performed By: #### CBC ####S PATHOLOGY OUTSTFATCS8789 [place], [address]HSB (Bld) [#/Vol]2.40 10*6/uLLow4.00-5.20The [facility] SystemComment on above:Performed By: #### CBC ####[facility] PATHOLOGY KLOZMYLHSW8935 [place], [address]ONW (Bld) [#/Vol]7.7 10*3/uLNormal4.5-11.5The [facility] SystemComment on above:Performed By: #### CBC ####[facility] PATHOLOGY ISBSJEYNEA2459 [place], [place], [place] HEAD W/O CONTRASTon 89-42-3484DY HEAD W/O CONTRASTNormalThe CareDoxroXeros SystemCT Head WO contraston 32-87-3129CT JZA5804.5 (mGy.cm)[facility] Work Phone: CT SeriesHeadTHE [facility] Work Phone: CTDI VOL67.5 (mGy)[facility] Work Phone: PHANTOM TYPEIEC Head Dosimetry PhantomTHE [facility] Work Phone: RADIOLOGYTHE [facility] Work Phone: THE [employer]RO[facility] SYSTEM Work Phone: Radiology Study observation (narrative)[facility] Work Phone: Consultson [phone] Authentication Interface Message TextPhysical Therapy Attempted to see pt this PM for treatment, pt politely declined participation due to just walking w/staff and wants to rest. Scheduled for EVD removal 07/09 per chart. Will continue to follow. Estee Maya, PTNormAshtabula County Medical Center CareDoxroXeros SystemTranscription Authentication Interface Message TextNormAshtabula County Medical Center CareDoxroXeros SystemTranscription Authentication Interface Message TextxNormUniversity Hospitals Geneva Medical CenterSquid FacilroXeros SystemGLUCOSE, FINGERSTICK-IN OFFICEon 32-68-8159Ubbvsyu [Mass/Vol]313 mg/vFJfnz60 - 110 mg/dLTHE [facility] NETWORKROOHIOHEALTH PICKERINGTON METHODIST [facility]ITAL SYSTEMInterpretation and review of laboratory resultsAbnoSt. Francis Hospital SYSTEMTHE METROOHIOHEALTH PICKERINGTON METHODIST HOSPITAL SYSTEMGlucose [Mass/Vol]272 mg/nEKxck93-163Fht [facility] HospitalroSelect [facility] SystemComment on above:Result Comment: Notified ALISTAIR KEY MDPerformed By: #### 19606 ####NURSING GLUCOSE TJKZEEC[address] [place] [address], [address] Glucose [Mass/Vol]272 mg/kAXfwz06 - 110 mg/dLTHE [facility] NETWORKROOHIOHEALTH PICKERINGTON [facility] SYSTEM Interpretation and review of laboratory resultsAbnoLutheran HospitalTHE [facility] NETWORKROOHIOHEALTH PICKERINGTON [facility]ITAL SYSTEMGlucose [Mass/Vol]375 mg/bJHpfe88-103Qkc [facility] Comment on above:Performed By: #### [id number] ####NURSING GLUCOSE JOCGVRR[address] [place] [address], [address]Upkejrq [Mass/Vol]375 mg/cBPngx31 - 110 mg/dLTHE [facility] NETWORKROOHIOHEALTH PICKERINGTON [facility] SYSTEMInterpretation and review of laboratory results AbnormalTHE [facility] SYSTEMTHE [facility] NETWORKROOHIOHEALTH PICKERINGTON [facility] SYSTEMGlucose [Mass/Vol]393 mg/dL Ywgt60-761Pfb [facility] SystemComment on above:Performed By: #### 81033 ####NURSING GLUCOSE PIQCTBH[address] [place] [address], [address]Tjqztxd [Mass/Vol]393 mg/fKYuao01 - 110 mg/dLTHE [facility] NETWORKROOHIOHEALTH PICKERINGTON [facility]ITAL SYSTEMInterpretation and review of laboratory resultsAbKindred HealthcareTHE [facility] NETWORKROOHIOHEALTH [facility] SYSTEM Glucose [Mass/Vol]295 mg/iABdjo53-567Rjc [facility] SystemComment on above: Performed By: #### [id number] ####NURSING GLUCOSE MLTBWKG3803 [place], [place], [address]Viqygemcsa - Blood bankon 62-81-8772SOU and Rh group Nom (Bld)Blood group A Rh(D) positiveTHE [facility] SYSTEMMAGNESIUMon 16-11-6602Rdbpzmgpz [Mass/Vol]1.7 mg/dLLow1.9-2.7The [facility] SystemComment on above:Result Comment: Note updated reference ranges.Performed By: #### BILL JAUREGUI CH8 ####[facility] PATH[facility] TEPAYPYAAH1158 [place], [place], [address] Interpretation and review of laboratory resultsAbnormCarilion New River Valley Medical CenterROHEALTH SYSTEMMagnesium [Mass/Vol]1.7 mg/dLLow1.9 - 2.7 mg/dLTHE [facility] SYSTEMNo Panel Informationon 52-55-6902ATQ [facility]ALTH SYSTEMPHOSPHORUSon 07-09-2023 Phosphate [Mass/Vol]2.7 mg/dLNormal2.5-5.0The [facility] HospitalroHealth SystemComment on above:Result Comment: Note updated reference ranges.Performed By: #### BILL JAUREGUI CH8 ####[facility] PATH[facility] UVMOBZZCIK3734 [place], [address] Interpretation and review of laboratory resultsNormCarilion New River Valley Medical CenterROHEALTH SYSTEM Phosphate [Mass/Vol]2.7 mg/dL2.5 - 5.0 mg/dLTHE [facility] NETWORKROOHIOHEALTH PICKERINGTON METHODIST HOSPITAL SYSTEMProgress Notes on 96-73-3561Ydzwptfkllbvp Authentication Interface Message TextNoAtrium Health Wake Forest BaptistroHealth SystemTranscription Authentication Interface Message TextNoAtrium Health Wake Forest BaptistroHealth SystemTranscription Authentication Interface Message TextNoAtrium Health Wake Forest BaptistroHealth SystemRED BLOOD CELL UNIT STATUSon 61-25-2551Qvozh Product Code [id number] [facility]ALTH SYSTEMBlood Product DescriptionRed Blood CellsTHE METROHEALTH SYSTEMBlood product unit Nom (BPU) [ID][id number] [facility]ALTH SYSTEMBlood Product Unit [id number] METROOHIOHEALTH PICKERINGTON METHODIST HOSPITAL SYSTEMMajor crossmatch [Interp] Compatible (E)THE [facility]ALTH SYSTEMStatusTransfusedTHE [facility] NETWORKROHEALTH SYSTEMTHE [facility] NETWORKROOHIOHEALTH PICKERINGTON METHODIST HOSPITAL SYSTEMTYPE AND SCREENon 44-27-3008JZD and Rh group Nom (Bld)Blood group A Rh(D) positiveNoAtrium Health Wake Forest BaptistroSelect Medical Specialty Hospital - [facility] SystemComment on above:Performed By: #### TS ####[facility] PATHOLOGY BOXLSGGUXQ[address] [place] [address], [address]ZLEW INTNegativeNoAtrium Health Wake Forest BaptistroSelect Medical Specialty Hospital - [facility] SystemComment on above:Performed By: #### TS ####[facility] PATHOLOGY BBGPQXBTHI2141 [place], [address]Nxffq group antibody screen QlNegativeTHE UNIVERS[facility] OF [facility] NETWORKROOHIOHEALTH PICKERINGTON METHODIST HOSPITAL SYSTEMTHE [facility] NETWORKROOHIOHEALTH PICKERINGTON METHODIST HOSPITAL SYSTEMBASIC METABOLIC PANELon 93-32-7735Gcgmq gap [Moles/Vol]11 mmol/WZlzjdb62-75Gxd [facility] HospitalHealth SystemComment on above:Performed By: #### MG RADHIKA, PHOS ####[facility] PATHOLOGY ZVXQSZFLTU3047 [place], [place], [address] Calcium [Mass/Vol]8.1 mg/dLLow8.6-10.3The [facility] HospitalroHealth SystemComment on above:Performed By: #### RADHIKA MG, PHOS ####[facility] PATHOLOGY ZJJODJVJSL8319 [place], [address]Kakyapop [Moles/Vol]110 mmol/LHigh 98-107The [facility] SystemComment on above:Performed By: #### RADHIKA MG, VENKATS ####S PATHOLOGY FKOTOYRMEM3288 [place], [address]KP2 [Moles/Vol]24 mmol/DIiqivx30-91Pmu [facility] SystemComment on above:Performed By: #### RADHIKA MG, PHOS ####[facility] PATHOLOGY CFTDZNFZBV1879 [place], [address]Jijybygzpc [Mass/Vol]0.45 mg/dLLow0.60-1.20The [facility] HospitalHealth SystemComment on above:Performed By: #### RADHIKA MG, PHOS ####S PATHOLOGY WHQVOCQCYJ7609 [place], [address]YDWVPRWLP GFR (CKD-EPI)112 mL/min/1.73sqmNormal>=60The [facility] SystemComment on above: Result Comment: 2020 CKD [...] Inclusion of Race in Diagnosing Kidney Disease. Afghan Journal of Kidney Diseases 202;79(2):268-88.e1.2. N Engl J Med 1 Vol. 385 Issue 19 Pages 8542-3035Performed By: #### MG GARRIDO PHOS ####[facility] PATHOLOGY DVUZGUMDQY8862 [place], [address]Wlbrszd [Mass/Vol]149 mg/tZXvrm00-217Map [facility] HospitalroHealth SystemComment on above:Performed By: #### MG RADHIKA, BILL ####S PATHOLOGY AXZUDIZGQA1434 [place], [place], [address]Potassium [Moles/Vol]4.0 mmol/LNormal3.5-5.0The [facility] Comment on above:Performed By: ###MG MARIE, BILL ####S PATHOLOGY OZMKXQTSSL3459 [place], [address]Stmhgy [Moles/Vol]141 mmol/HUkfvwd772-471Ezi [facility] HospitalroHealth SystemComment on above:Performed By: ###MG MARIE, BILL ####S PATHOLOGY USWSRZUOVA3304 [place], [address]Nsht nitrogen [Mass/Vol]12 mg/dLNormal7-25The [facility] Comment on above:Performed By: ###MG MARIE, BILL ####S PATHOLOGY JJZXWIMKLQ6690 [place], [address]Huhxx metabolic 2000 panelon 20-09-7341Fjzbc gap [Moles/Vol]11 mmol/L10 - 20THE [facility] Calcium [Mass/Vol]8.1 mg/dLLow8.6 - 10.3 mg/dLTHE [facility]ALTH SYSTEMChloride [Moles/Vol]110 mmol/LHigh98 - 107 mmol/LTHE [facility]ALTH SYSTEMCO2 [Moles/Vol]24 mmol/L21 - 31 mmol/LTHE [facility] SYSTEMCreatinine [Mass/Vol]0.45 mg/dLLow0.60 - 1.20 mg/dLTHE [facility]ALTH SYSTEMGFR/1.73 sq M.predicted CKD-EPI (S/P/Bld) [Vol rate/Area]112- PINFTHE [facility]ALTH SYSTEMGlucose [Mass/Vol]149 mg/vRNbui53 - 109 mg/dLTHE [facility]ALTH SYSTEMPotassium [Moles/Vol]4.0 mmol/L3.5 - 5.0 mmol/L THE [facility] SYSTEMSodium [Moles/Vol]141 mmol/L136 - 145 mmol/LTHE [facility]ALTH SYSTEMUrea nitrogen [Mass/Vol]12 mg/dL7 - 25 mg/dLTHE [facility]ALTH SYSTEMCBC panel Auto (Bld)on 37-84-5669Bmsvxlovqno distribution width (RBC) [Ratio]18.0 %High11.5 - 14.5 [...] - 11.2 fLTHE METROHEALTH SYSTEMPlatelets (Bld) [#/Vol]581 10*3/tDTkig124 - 400 K/uLTHE [facility]RO[facility]ALTH SYSTEMRBC (Bld) [#/Vol]2.48 10*6/uLLowTHE METROHEALTH SYSTEMWBC (Bld) [#/Vol]6.6 10*3/uL4.5 - 11.5 K/uLTHE [facility]ALTH SYSTEMTHE [facility]ALTH SYSTEMCOMPLETE BLOOD COUNTon 56-22-7698Ngajsgxqntp distribution width (RBC) [Ratio]18.0 %High11.5-14.5The [facility] SystemComment on above:Performed By: #### CBC ####[facility] PATHOLOGY AKWPJCRJVH9740 [place], [address]Mfggfbjact (Bld) [Volume fraction]21.8 %Low36.0-46.0The [facility] SystemComment on above:Performed By: #### CBC ####[facility] PATHOLOGY XIZSTYNITM[address] [place] [address], [address]Oueursmfyw (Bld) [Mass/Vol]7.8 g/dLLow 12.0-15.0The [facility] SystemComment on above:Performed By: #### CBC ####[facility] PATHOLOGY MIUOLOKHDT[address] [place] [address], [address]KJT (RBC) [Entitic mass]31.5 wpHulwpd45.0-34.0The [facility] SystemComment on above: Performed By: #### CBC ####[facility] PATHOLOGY MONOARISMK[address] [place] [address], [address]BCKD (RBC) [Mass/Vol]35.9 g/jJEdwzab89.0-35.9The [facility] SystemComment on above:Performed By: #### CBC ####[facility] PATHOLOGY LGHRTKVJMM[address] [place] [address], [address]HLH (RBC) [Entitic vol] 88 dDAnaygu40-210Biy [facility] SystemComment on above:Performed By: #### CBC ####[facility] PATHOLOGY FZWFTMFFUP[address] [place] [address], Platelet mean volume (Bld) [Entitic vol]7.1 fLLow7.5-11.2The [facility] Comment on above:Performed By: #### CBC ####[facility] PATHOLOGY ZRFVFVSXHP[address] [place] [address], [address]Pwfijtovv (Bld) [#/Vol]581 10*3/uLHigh 150-400The [facility] SystemComment on above:Performed By: #### CBC ####[facility] PATHOLOGY KLPXUWQJLV[address] [place] [address], [address]WOY (Bld) [#/Vol]2.48 10*6/uLLow4.00-5.20The [facility] SystemComment on above:Performed By: #### CBC ####S PATHOLOGY YIZTIZRFEQ1399 [place], [address]ZVG (Bld) [#/Vol]6.6 10*3/uLNormal4.5-11.5The [facility]ro[facility] System Comment on above:Performed By: #### CBC ####[facility] PATHOLOGY EHMZFYMWLC7494 [place], [address]TATUERY, FINGERSTICK-IN OFFICEon 88-02-6758Vdotxvr [Mass/Vol]295 mg/gESyau82 - 110 mg/dLTHE [facility] Interpretation and review of laboratory resultsAbUnited Memorial Medical CenterROHEALTH SYSTEMTHE METRO[facility]ALTH SYSTEMGlucose [Mass/Vol]144 mg/sXDeob69-095Ezy [facility] Comment on above:Performed By: #### 76540 ####NURSING GLUCOSE OUSUCKK[address] [place] [address], [address]Rrzgwqz [Mass/Vol]141 mg/wFPzdg01-877Pwn [facility] HospitalroHealth SystemComment on above:Performed By: #### 28565 ####NURSING GLUCOSE IZYCZVP[address] [place] [address], [address]Nafzlwm [Mass/Vol]141 mg/dLHigh 68 - 110 mg/dLTHE [facility]ALTH SYSTEMGlucose [Mass/Vol]144 mg/uTJgzv62 - 110 mg/dLTHE [facility] SYSTEMGlucose [Mass/Vol]277 mg/dSJrwv57-602Smi [facility] HospitalroHealth SystemComment on above:Performed By: #### 64137 ####NURSING GLUCOSE HWCONWK[address] [place] [address], [address]Guljafj [Mass/Vol]277 mg/hUStca62 - 110 mg/dLTHE [facility] SYSTEMInterpretation and review of laboratory results AbnormalTHE [facility]RO[facility]ALTH SYSTEMTHE [facility]ALTH SYSTEMGlucose [Mass/Vol]232 mg/dL Nppu15-917Alt [facility] SystemComment on above:Performed By: #### 47350 ####NURSING GLUCOSE UFTUHWQ[address] [place] [address], [address]Qqpjdxs [Mass/Vol]232 mg/bTOjwx02 - 110 mg/dLTHE [facility] SYSTEMInterpretation and review of laboratory resultsAbnoAtrium Health Wake Forest Baptist Medical CenterROOHIOHEALTH PICK[facility] SYSTEMTHE [facility] Glucose [Mass/Vol]170 mg/[id number] [facility] SystemComment on above: Performed By: #### [id number] ####NURSING GLUCOSE [id number] [place] [address], [id number] [id number] [Mass/Vol]1.4 mg/dLLow 1.9-2.7The [facility] SystemComment on above:Result Comment: Note updated reference ranges.Performed By: #### MG GARRIDO PHOS ####[facility] [id number] [place] [address], [id number] [Mass/Vol]1.4 mg/dLLow1.9 - 2.7 mg/dLTHE [facility] SYSTEMNo Panel Informationon 07-08-2023 Interpretation and review of laboratory resultsAbnoLutheran HospitalTHE [facility] SYSTEMInterpretation and review of laboratory resultsAbnoLutheran HospitalTHE [facility] SYSTEMPHOSPHORUSon 50-94-2559Hwassjebw [Mass/Vol]3.6 mg/dLNormal2.5-5.0The [facility] SystemComment on above:Result Comment: Note updated reference ranges.Performed By: #### MG GARRIDO PHOS ####[facility] PATH[facility] JHTCMIRJWA[address] [place] [address], [address] Interpretation and review of laboratory resultsNoSt. Francis Hospital SYSTEM Phosphate [Mass/Vol]3.6 mg/dL2.5 - 5.0 mg/dLTHE [facility] SYSTEMProgress Notes on 26-72-8860Lfgdirpufityx Authentication Interface Message TextNoUniversity Hospitals [facility] SystemTranscription Authentication Interface Message TextNoUniversity Hospitals [facility] SystemBASIC METABOLIC PANELon 61-08-9527Boctg gap [Moles/Vol]10 mmol/GNspkea49-37Faq [facility] SystemComment on above:Performed By: #### BILL JAUREGUI, RADHIKA ####[facility] PATHOLOG[facility] DJEFVDKNSA[address] [place] [address], [phone] [Mass/Vol]8.1 mg/dLLow8.6-10.3The [facility] SystemComment on above:Performed By: #### BILL JAUREGUI CH8 ####[facility] PATHOLOGY DZWIGNUPEW6426 [place], [address]Uqzwizuw [Moles/Vol]110 mmol/LHigh 98-107The [facility] HospitalroHealth SystemComment on above:Performed By: #### BILL JAUREGUI CH8 ####[facility] PATHOLOGY UUBIJQIGYK5333 [place], [address]KL3 [Moles/Vol]27 mmol/QDxyrxm51-35Wnp [facility] HospitalroHealth SystemComment on above:Performed By: #### BILL JAUREGUI CH8 ####[facility] PATHOLOGY NUIJIYELFC4601 [place], [address]Fsadbojwnz [Mass/Vol]0.40 mg/dLLow0.60-1.20The [facility] SystemComment on above:Performed By: #### BILL JAUREGUI CH8 ####[facility] PATHOLOGY ZLNIWHOEHP0580 [place], [address]ZDNOBBJOZ GFR (CKD-EPI)115 mL/min/1.73sqmNormal>=60The [facility] SystemComment on above: Result Comment: 2020 CKD EPI Equation using Creatinine without RaceComment: Estimated glomerular filtration rate (eGFR) is calculated without a race coefficient. Values should be interpreted in the context of the patient's full clinical presentation.Reference:1. Cooper C, Lvi M, Karyn VILCHIS, et al.. A Unifying Approach for GFR Estimation: Recommendations of the NKF-ASN Task Force on Reassessing the Inclusion of Race in Diagnosing Kidney Disease. [place] Journal of Kidney Diseases 202;79(2):268-88.e1.2. N Engl J Med 2020 Vol. 385 Issue 19 Pages [phone] By: #### BILL JAUREGUI CH8 ####[facility] PATH[facility] FZACPZBNPE4985 [place], [address]Ebrsmii [Mass/Vol]98 mg/dYZwokvk90-998Vhq [facility] SystemComment on above:Performed By: #### BILL JAUREGUI CH8 ####[facility] PATHOLOG[facility] KSKACZPSAW8579 [place], [place], 44 [address]Potassium [Moles/Vol]3.9 mmol/LNormal3.5-5.0The [facility] Comment on above:Performed By: #### BILL JAUREGUI CH8 ####[facility] WBKALFNRHE8209 [place], [address]Bwefhe [Moles/Vol]143 mmol/QTjnhnm081-165Wrj [facility] SystemComment on above:Performed By: #### BILL JAUREGUI CH8 ####[facility] SGVTESIBMP3234 [place], [place], 44 Urea nitrogen [Mass/Vol]12 mg/dLNormal7-25The [facility] SystemComment on above:Performed By: #### BILL JAUREGUI CH8 ####[facility] PATH[facility] QCHLDWZKHG4500 [place], [address]Bopui metabolic 2000 panelon 46-89-2416Qeoiv gap [Moles/Vol]10 mmol/L10 - 20THE [facility] SYSTEMCalcium [...] 25 mg/dLTHE [facility]RO[facility]ALTH SYSTEMCBC panel Auto (Bld)on 02-37-4898Znkuzwtcvwk distribution width (RBC) [Ratio]18.0 % High11.5 - 14.5 %THE [facility] SYSTEMHematocrit (Bld) [Volume fraction]24.8 % Low36.0 - 46.0 %THE [facility] SYSTEMHemoglobin (Bld) [Mass/Vol]8.0 g/dLLow12.0 - 15.0 g/dLTHE METROOHIOHEALTH [facility]ICKER[facility] SYSTEMInterpretation and review of laboratory resultsAbnormalTHE [facility] NETWORKROOHIOHEALTH PICKERINGTON METHODIST HOSPITAL SYSTEMMCH (RBC) [Entitic mass]28.4 pg26.0 - 34.0 pgTHE METROHEALTH SYSTEMMCHC (RBC) [Mass/Vol]32.4 g/dL32.0 - 35.9 g/dLTHE METROOHIOHEALTH PICKERINGTON METHODIST HOSPITAL SYSTEMMCV (RBC) [Entitic vol]88 fL80 - 100 fLTHE [facility] SYSTEM Platelet mean volume (Bld) [Entitic vol]7.1 fLLow7.5 - 11.2 fLTHE METRO[facility]ALTH SYSTEMPlatelets (Bld) [#/Vol]639 10*3/yXGjhe241 - 400 K/uLTHE METROOHIOHEALTH PICKERINGTON METHODIST [facility] SYSTEM RBC (Bld) [#/Vol]2.83 10*6/uLLowTHE [facility]RO[facility]ALTH SYSTEMWBC (Bld) [#/Vol]7.5 10*3/uL4.5 - 11.5 K/uLTHE [facility]ALTH SYSTEMTHE [facility] NETWORKROHEALTH SYSTEMCOMPLETE BLOOD COUNTon 26-07-9666Ankzlgipjyi distribution width (RBC) [Ratio]18.0 %High 11.5-14.5The [facility] HospitalroSelect [facility] SystemComment on above:Performed By: #### CBC ####S PATHOLOGY HNFNAKMFNT[address] [place] [address], [address]Fptxpjvkfz (Bld) [Volume fraction]24.8 %Low36.0-46.0The [facility] SystemComment on above: Performed By: #### CBC ####S PATHOLOGY SXSVPQOGHD[address] [place] [address], [address]Mqundswthh (Bld) [Mass/Vol]8.0 g/dLLow12.0-15.0The [facility] SystemComment on above:Performed By: #### CBC ####S PATHOLOGY SPDXKJCVOL[address] [place] [address], [address]NDM (RBC) [Entitic mass]28.4 qlEtddyv19.0-34.0The [facility] HospitalroHealth SystemComment on above:Performed By: #### CBC ####[facility] PATHOLOGY WOLTOOEZCN[address] [place] [address], [address]ZYDL (RBC) [Mass/Vol]32.4 g/wOYezfwu59.0-35.9The [facility] System Comment on above:Performed By: #### CBC ####[facility] PATHOLOGY LMNZMXDCTA9[address] [place] [address], [address]PEH (RBC) [Entitic vol]88 fLNormal 80-100The [facility] HospitalroHealth SystemComment on above:Performed By: #### CBC ####[facility] PATHOLOGY HJIXKZNTKR[address] [place] [address], [address]Vwmtkiuy mean volume (Bld) [Entitic vol]7.1 fLLow7.5-11.2The [facility] HospitalroHealth SystemComment on above:Performed By: #### CBC ####[facility] PATHOLOGY YBOAKHOTOV[address] [place] [address], [address]Nvdjteoth (Bld) [#/Vol]639 10*3/vYUgqi756-896Bwg [facility] HospitalHealth SystemComment on above:Performed By: #### CBC ####[facility] PATHOLOGY UZBKUEGICD[address] [place] [address], [address]GVT (Bld) [#/Vol]2.83 10*6/uLLow4.00-5.20The [facility] HospitalHealth SystemComment on above:Performed By: #### CBC ####[facility] PATHOLOGY XGMCZNEDEC[address] [place] [address], [address]LAY (Bld) [#/Vol]7.5 10*3/uLNormal4.5-11.5The [facility] HospitalroHealth SystemComment on above: Performed By: #### CBC ####[facility] PATHOLOGY IMWBTLAHTV[address] [place] [address], [address]MEDYMDQ, FINGERSTICK-IN OFFICEon 01-95-4132Qbovthd [Mass/Vol]170 mg/zEYyul14 - 110 mg/dLTHE [facility] NETWORKROOHIOHEALTH PICKERINGTON METHODIST [facility]OS[facility]ITAL SYSTEMInterpretation and review of laboratory resultsAbGrand Lake Joint Township District Memorial HospitalROOHIOHEALTH PICKERINGTON [facility] SYSTEM Glucose [Mass/Vol]152 mg/gOIcae79-403Evg [facility] SystemComment on above: Result Comment: Notified ALISTAIR KEY MDPerformed By: #### [id number] ####NURSING GLUCOSE BVZWMNG[address] [place] [address], [address]Lfvxroc [Mass/Vol]152 mg/dLHigh 68 - 110 mg/dLTHE [facility] NETWORKROOHIOHEALTH PICKERINGTON [facility] SYSTEMInterpretation and review of laboratory resultsAbnoSt. Francis Hospital SYSTEMTHE [facility] NETWORKROHEALTH SYSTEMGlucose [Mass/Vol]217 mg/dGDjve08-898Crb [facility] SystemComment on above:Result Comment: Notified ALISTAIR KEY MDPerformed By: #### [id number] ####NURSING GLUCOSE IUFHXIB[address] [place] [address], [address]Exunzep [Mass/Vol]217 mg/wLVmeu26 - 110 mg/dLTHE [facility] SYSTEMInterpretation and review of laboratory resultsAbnoLutheran HospitalTHE UN[facility] NETWORKROOHIOHEALTH PICKERINGTON METHODIST [facility]OSPITAL SYSTEMGlucose [Mass/Vol]105 mg/bLAulchy70-779 The [facility] SystemComment on above:Performed By: #### [id number] ####NURSING GLUCOSE SSEEFZG[address] [place] [address], 173[address]Zaithta [Mass/Vol]105 mg/dL68 - 110 mg/dLTHE [facility] SYSTEMInterpretation and review of laboratory resultsNoUC Health SYSTEMGlucose [Mass/Vol]253 mg/dNLjry56-228Env [facility] SystemComment on above:Performed By: #### [id number] ####NURSING GLUCOSE LOAWVTR[address] [place] [address], 21692BPGSTHHOJcy 30-40-2852Doaxnfbpc [Mass/Vol]1.5 mg/dLLow1.9-2.7The [facility] SystemComment on above:Result Comment: Note updated reference ranges.Performed By: #### MG, PHOS, CH8 ####[facility] PATHOLOGY UAXZUCEFHA[address] [place] [address], [phone] [Mass/Vol]1.5 mg/dLLow1.9 - 2.7 mg/dLTHE [facility] SYSTEMNo Panel Informationon 76-19-2714Ewsmukqutomini and review of laboratory results AbnormalTHE [facility] SYSTEMTHE [facility] NETWORKROOHIOHEALTH PICKERINGTON METHODIST HOSPITAL SYSTEMPHOSPHORUSon 07-07-2023 Phosphate [Mass/Vol]3.4 mg/dLNormal2.5-5.0The [facility] SystemComment on above:Result Comment: Note updated reference ranges.Performed By: #### MG, PHOS, CH8 ####[facility] PATHOLOGY QPPMTOWPQK7067 [place], Interpretation and review of laboratory resultsNormalTHKETTERING HEALTH PREBLE SYSTEM Phosphate [Mass/Vol]3.4 mg/dL2.5 - 5.0 mg/dLTHE [facility] SYSTEMProgress Notes on 06-02-2129Mmrghsxcaumjz Authentication Interface Message TextNoUniversity Hospitals [facility] SystemTranscription Authentication Interface Message TextNoUniversity Hospitals [facility] SystemBASIC METABOLIC PANELon 87-43-3399Mexcd gap [Moles/Vol]11 mmol/AQaoytx18-43Bwr [facility] SystemComment on above:Performed By: #### CH8, PHOS, MG ####[facility] PATHOLOGY RWKFWANXBT8146 [place], [place], 44 109-[address]Calcium [Mass/Vol]8.4 mg/dLLow8.6-10.3The [facility] SystemComment on above:Performed By: #### CH8, PHOS, MG ####[facility] PATHOLOGY PEYULRPTBL5096 [place], [address]Noqvneto [Moles/Vol]108 mmol/LHigh 98-107The [facility] SystemComment on above:Performed By: #### CH8, PHOS, MG ####[facility] PATHOLOGY BJISTDHSET6850 [place], [address]LL7 [Moles/Vol]26 mmol/RBytsfx22-15Pnp [facility] SystemComment on above:Performed By: #### CH8, PHOS, MG ####[facility] PATHOLOGY CSGIOOVSSJ2501 [place], [address]Kuzbvqaujf [Mass/Vol]0.49 mg/dLLow0.60-1.20The [facility] SystemComment on above:Performed By: #### BILL GARRIDO MG ####[facility]eth[facility] PATHOLOGY ZGINVUAGYW9047 [place], [address]CXKVXUEQI GFR (CKD-EPI)110 mL/min/1.73sqmNormal>=60The [facility] SystemComment on above: Result Comment: 2020 CKD [...] Inclusion of Race in Diagnosing Kidney Disease. [place] Journal of Kidney Diseases 2021;79(2):268-88.e1.2. N Engl J Med 2020 Vol. 385 Issue 19 Pages 8237-7929Performed By: #### BILL GARRIDO MG ####[facility] BVRHCJHIYK9420 [place], [address]Rbwzcxz [Mass/Vol]141 mg/zFZyri54-439Cnk [facility] SystemComment on above:Performed By: ###BILL SALAZAR MG ####[facility] TUPVCTZBGG8005 [place], [place], 44 Potassium [Moles/Vol]4.3 mmol/LNormal3.5-5.0The [facility] Comment on above:Performed By: ###BILL SALAZAR MG ####[facility] PATHOLOGY JBJPAYLQLG5233 [place], [address]Ixvjcd [Moles/Vol]141 mmol/JIyqphi265-145Hbr [facility] SystemComment on above:Performed By: ###BILL SALAZAR MG ####[facility] PATHOLOGY SGFUFFFBOE8145 [place], [address]Ghsb nitrogen [Mass/Vol]10 mg/dLNormal7-25The [facility] Comment on above:Performed By: ###BILL SALAZAR MG ####[facility] PATHOLOGY REGTNNAZFY0169 [place], [address]Harkn metabolic 2000 panelon 83-68-6868Whmih gap [Moles/Vol]11 mmol/L10 - 20THE [facility] Calcium [Mass/Vol]8.4 mg/dLLow8.6 - 10.3 mg/dLTHE [facility] SYSTEMChloride [Moles/Vol]108 mmol/LHigh98 - 107 mmol/LTHE [facility] SYSTEMCO2 [Moles/Vol]26 mmol/L21 - 31 mmol/LTHE [facility] SYSTEMCreatinine [Mass/Vol]0.49 mg/dLLow0.60 - 1.20 mg/dLTHE [facility] SYSTEMGFR/1.73 sq M.predicted CKD-EPI (S/P/Bld) [Vol rate/Area]110- PINFTHE [facility]ALTH SYSTEMGlucose [Mass/Vol]141 mg/lZJrzc15 - 109 mg/dLTHE [facility] SYSTEMPotassium [Moles/Vol]4.3 mmol/L3.5 - 5.0 mmol/L THE [facility] SYSTEMSodium [Moles/Vol]141 mmol/L136 - 145 mmol/LTHE [facility] SYSTEMUrea nitrogen [Mass/Vol]10 mg/dL7 - 25 mg/dLTHE [facility] SYSTEMCBC panel Auto (Bld)on 35-79-1417Pjoffkgfzlo distribution width (RBC) [Ratio]18.9 %High11.5 - 14.5 [...] - 11.2 fLTHE METROHEALTH SYSTEMPlatelets (Bld) [#/Vol]671 10*3/aOWdxo019 - 400 K/uLTHE UN[facility] NETWORKROHEALTH SYSTEM RBC (Bld) [#/Vol]3.17 10*6/uLLowTHE UN[facility] NETWORKROHEALTH SYSTEMWBC (Bld) [#/Vol]9.4 10*3/uL4.5 - 11.5 K/uLTHE [facility] SYSTEMTHE [facility]ALTH SYSTEMCOMPLETE BLOOD COUNTon 19-21-3005Pebsjbqmuav distribution width (RBC) [Ratio]18.9 %High 11.5-14.5The [facility] SystemComment on above:Performed By: #### CBC ####[facility] PATHOLOGY VFLUVXKJCK[address] [place] [address], [address]Tshztpniji (Bld) [Volume fraction]27.9 %Low36.0-46.0The [facility] SystemComment on above: Performed By: #### CBC ####[facility] PATHOLOGY JYTXDGUXHT[address] [place] [address], [address]Zpwxyzehba (Bld) [Mass/Vol]8.9 g/dLLow12.0-15.0The [facility] SystemComment on above:Performed By: #### CBC ####[facility] PATHOLOGY YZVARZISEP[address] [place] [address], [address]QOT (RBC) [Entitic mass]28.2 pjBmsnwq21.0-34.0The [facility] SystemComment on above:Performed By: #### CBC ####[facility] PATHOLOGY XAZLKACIWL[address] [place] [address], [address]FXQK (RBC) [Mass/Vol]32.1 g/rHWqowrc92.0-35.9The [facility] Comment on above:Performed By: #### CBC ####[facility] PATHOLOGY FPCAVQWEXX[address] [place] [address], [address]SIY (RBC) [Entitic vol]88 fLNormal 80-100The [facility] SystemComment on above:Performed By: #### CBC ####[facility] PATHOLOGY FHRZAKYJOM[address] [place] [address], [address]Vvwjdkpo mean volume (Bld) [Entitic vol]7.6 fLNormal7.5-11.2The [facility] HospitalroHealth SystemComment on above:Performed By: #### CBC ####S PATHOLOGY DSFFZHLRMJ8177 [place], [address]Qkibphrec (Bld) [#/Vol]671 10*3/tCUvil996-934Trq [facility] HospitalroHealth SystemComment on above:Performed By: #### CBC ####S PATHOLOGY TKYSJCDOUW45[address] [place] [address], [address]AGA (Bld) [#/Vol]3.17 10*6/uLLow4.00-5.20The [facility] HospitalroHealth SystemComment on above:Performed By: #### CBC ####S PATHOLOGY WMNBMNMOGB[address] [place] [address], [address]VWH (Bld) [#/Vol]9.4 10*3/uLNormal4.5-11.5The [facility] HospitalHealth SystemComment on above: Performed By: #### CBC ####[facility] PATHOLOGY KMWEPUCBVW[address] [place] [address], [address]Wldk Plan Noteon 63-88-7551Yiufcvyixhksr Authentication Interface Message TextNoUniversity Hospit[facility] SystemConsultson 40-59-1423Wnunimufmsnan Authentication Interface Message TextNoUniversity [facility] SystemTranscription Authentication Interface Message TextNoUniversity [facility] SystemTranscription Authentication Interface Message TextNoAt[facility] Health Wake Forest BaptistroSelect [facility] SystemGLUCOSE, FINGERSTICK-IN OFFICEon 24-20-6422Qomwuvd [Mass/Vol] 253 mg/rBQfnd82 - 110 mg/dLTHE [facility]ALTH SYSTEMInterpretation and review of laboratory resultsAbnoSt. Francis Hospital SYSTEMSCCI [facility]OS[facility] SYSTEMGlucose [Mass/Vol]281 mg/vDXmuz45-117Uff [facility] SystemComment on above:Performed By: #### [id number] ####[facility] GLUCOSE ELFOCLB4679 [place], [place], [address]Biomzpm [Mass/Vol]281 mg/cEGwdv88 - 110 mg/dLTHE [facility] Interpretation and review of laboratory resultsAbnoSt. Francis Hospital SYSTEMTHE UN[facility] NETWORKROHEALTH SYSTEMGlucose [Mass/Vol]296 mg/oYWfar75-259Tfn [facility] Comment on above:Performed By: #### 81564 ####NURSING GLUCOSE UYDGZEJ[address] [place] [address], [address]Snptehy [Mass/Vol]296 mg/wMVnmc04 - 110 mg/dLTHE UN[facility] NETWORKROHEALTH SYSTEMInterpretation and review of laboratory results AbnormalTHE [facility] NETWORKROHEALTH SYSTEMTHE [facility] NETWORKROOHIOHEALTH PICKERINGTON METHODIST [facility]OSPITAL SYSTEMGlucose [Mass/Vol]72 mg/dL Nbawwe40-339Paq [facility] SystemComment on above:Performed By: #### 55850 ####NURSING GLUCOSE KHXVOIZ[address] [place] [address], [address]Aloeokj [Mass/Vol]72 mg/dL68 - 110 mg/dLTHE [facility] SYSTEMInterpretation and review of laboratory resultsNoLutheran HospitalTHE [facility] SYSTEMMAGNESIUM on 25-55-0227Nqtnjsjeg [Mass/Vol]1.7 mg/dLLow1.9-2.7The [facility] Comment on above:Result Comment: Note updated reference ranges.Performed By: #### CH8, PHOS, MG ####[facility] PATHOLOGY AVNKPMNNVJ[address] [place] [address], [address]Vochegqux [Mass/Vol]1.7 mg/dLLow1.9 - 2.7 mg/dLTHE [facility] SYSTEMNo Panel Informationon 43-96-4715Pfknglbcofeplj and review of laboratory resultsAbnoLutheran HospitalTHE UN[facility] NETWORKROOHIOHEALTH PICKERINGTON METHODIST HOSPITAL SYSTEMPHOSPHORUSon 60-72-6330Quyhmnner [Mass/Vol]2.9 mg/dLNormal2.5-5.0The [facility] Comment on above:Result Comment: Note updated reference ranges.Performed By: #### CH8, PHOS, MG ####[facility] PATHOLOGY OLCTVRUXUW[address] [place] [address], [address]Aasycupxmoqjxm and review of laboratory resultsNoSt. Francis Hospital SYSTEMPhosphate [Mass/Vol]2.9 mg/dL2.5 - 5.0 mg/dLTHE [facility] SYSTEMProgress Noteson 64-93-7631Vasvsdvxnfidm Authentication Interface Message TextNoUniversity [facility] SystemTranscription Authentication Interface Message TextNo[facility] SystemTranscription Authentication Interface Message TextNo[facility] SystemTranscription Authentication Interface Message TextNoUniversity [facility] SystemANTI FXA-LMW HEPARINon 11-40-9181UUIR FXA-LMW HEPARIN ASSAY0.36 IU/mLNormalThe [facility] SystemComment on above:Order Comment: The recommended therapeutic range for treatment of thrombosis with Low Molecular Weight Heparin is 0.5 - 1.0 IU/mLThe recommended range for VTE prophylaxis with Low Molecular Weight Heparin is 0.2 - 0.4 IU/mL.Performed By: #### JOAN ####S PATHOLOGY DBRSIMMVVZ[address] [place] [address], [address]LRU Heparin Chromogenic method Qn (PPP)0.36IU/mLTHE [facility] SYSTEMTHE [facility] SYSTEMBASIC METABOLIC PANELon 07-05-2023 Anion gap [Moles/Vol]8 mmol/AGsi83-96Dhx [facility] SystemComment on above: Performed By: #### BILL JAUREGUI CH8 ####[facility] PATHOLOGY YCQIYBLNGG[address] [place] [address], [address]Lhiabkn [Mass/Vol]7.8 mg/dLLow8.6-10.3The [facility] SystemComment on above:Performed By: #### BILL JAUREGUI, HUBER8 ####[facility] PATHOLOGY WTKJLZBASA3731 [place], [address]Bloeyzfu [Moles/Vol]111 mmol/IKjan58-128Ibq [facility] SystemComment on above:Performed By: #### BILL JAUREGUI, RADHIKA ####[facility] PATHOLOGY VEFIYFCJGZ8389 [place], [address]KS6 [Moles/Vol]28 mmol/VYguidn69-32Mrv [facility] SystemComment on above:Performed By: #### BILL JAUREGUI, HUBER8 ####[facility] PATHOLOGY EXSQYFTBTQ3952 [place], [address]Oltjshfqyu [Mass/Vol] 0.40 mg/dLLow0.60-1.20The [facility] SystemComment on above:Performed By: #### BILL JAUREGUI CH8 ####[facility] KEBAMWHGGR1213 [place], [address]GNDNLERIG GFR (CKD-EPI)115 mL/min/1.73sqmNormal>=60The [facility] SystemComment on above:Result Comment: 2020 CKD EPI [...] Inclusion of Race in Diagnosing Kidney Disease. [place] Journal of Kidney Diseases 2021;79(2):268-88.e1.2. N Engl J Med 1 Vol. 385 Issue 19 Pages 5142-2885Performed By: #### BILL JAUREGUI CH8 ####[facility] EAXRDIVFFX6144 [place], [address]Fifpqqt [Mass/Vol]68 mg/yYAny14-075Hkd [facility] SystemComment on above:Performed By: #### BILL JAUREGUI CH8 ####[facility] VMXNOEXBIL9701 [place], [address]Mhbtvrryo [Moles/Vol]4.2 mmol/LNormal3.5-5.0The [facility] Comment on above:Performed By: #### BILL JAUREGUI CH8 ####[facility] QFHOSQDOFJ3525 [place], [address]Yfqzzn [Moles/Vol]143 mmol/IVvjdnk814-945Anx [facility] SystemComment on above:Performed By: #### BILL JAUREGUI CH8 ####[facility] KQUWSMGIXN4158 [place], [place], Urea nitrogen [Mass/Vol]11 mg/dLNormal7-25The [facility] SystemComment on above:Performed By: #### BILL JAUREGUI CH8 ####[facility] YMFCKSQINE4693 [place], [address]Fswyx metabolic 2000 panelon 12-41-9424Bemrx gap [Moles/Vol]8 mmol/LLow10 - 20THE [facility] SYSTEMCalcium [...] nitrogen [Mass/Vol]11 mg/dL7 - 25 mg/dLTHE [facility]RO[facility]ALTH SYSTEMCBC panel Auto (Bld)on 30-90-8017Pacdwhpoewz distribution width (RBC) [Ratio]19.1 % High11.5 - 14.5 %[facility] Work Phone: Hematocrit (Bld) [Volume fraction]26.9 %Low36.0 - 46.0 %[facility] Work Phone: Hemoglobin (Bld) [Mass/Vol]8.8 g/dLLow12.0 - 15.0 g/dL [facility] Work Phone: Interpretation and review of laboratory results AbnormalTHE [facility] Work Phone: MCH (RBC) [Entitic mass]28.7 pg26.0 - 34.0 pgTHE [facility] Work Phone: MCHC (RBC) [Mass/Vol]32.8 g/dL32.0 - 35.9 g/dLTHE [facility] Work Phone: [phone] (RBC) [Entitic vol]87 fL80 - 100 fLTHE [facility] Work Phone: [phone] mean volume (Bld) [Entitic vol]7.8 fL7.5 - 11.2 fLTHE [facility] Work Phone: [phone] (Bld) [#/Vol]560 10*3/mBRsgx313 - 400 K/uL THE [facility] Work Phone: [phone] (Bld) [#/Vol]3.08 10*6/uLLowTHE [facility] Work Phone: [phone] (Bld) [#/Vol]8.2 10*3/uL4.5 - 11.5 K/uLTHE [facility] Work Phone: [phone] [facility] Work Phone: [phone] distribution width (RBC) [Ratio]15.6 %High 11.5 - 14.5 %THE [facility] Work Phone: [phone] (Bld) [Volume fraction]22.1 %Low36.0 - 46.0 %[facility] Work Phone: [phone] (Bld) [Mass/Vol]7.1 g/dLLow12.0 - 15.0 g/dL [facility] Work Phone: [phone] and review of laboratory results AbnormalTHE [facility] Work Phone: [phone] (RBC) [Entitic mass]29.4 pg26.0 - 34.0 pgTHE [facility] Work Phone: [phone] (RBC) [Mass/Vol]32.3 g/dL32.0 - 35.9 g/dLTHE [facility] Work Phone: [phone] (RBC) [Entitic vol]91 fL80 - 100 fLTHE [facility] Work Phone: [phone] mean volume (Bld) [Entitic vol]7.8 fL7.5 - 11.2 fLTHE [facility] Work Phone: Platelets (Bld) [#/Vol]507 10*3/bBGnkv087 - 400 K/uL [facility] Work Phone: RBC (Bld) [#/Vol]2.43 10*6/uLLowTHE [facility] Work Phone: WBC (Bld) [#/Vol]7.3 10*3/uL4.5 - 11.5 K/uLTHE [facility] Work Phone: [facility] Work Phone: CBC panel Auto (Bld)Ordered By: Molly Abbott on [phone] distribution width (RBC) [Ratio]15.6 %High11.5 - 14.5 [...] - 11.2 fLTHE METROHEALTH SYSTEMPlatelets (Bld) [#/Vol]487 10*3/wFStxx351 - 400 K/uLTHE [facility] RBC (Bld) [#/Vol]2.43 10*6/uLLowTHE METROHEALTH SYSTEMWBC (Bld) [#/Vol]7.3 10*3/uL4.5 - 11.5 K/uLTHE [facility] NETWORKROHEALTH SYSTEMTHE [facility] NETWORKROHEALTH SYSTEMCOMPLETE BLOOD COUNTon 81-22-9535Gwjckthbgpz distribution width (RBC) [Ratio]19.1 %High 11.5-14.5The [facility] SystemComment on above:Performed By: #### CBC ####[facility] PATHOLOGY YYKKYTPAPB[address] [place] [address], [address]Snvrjlsjxr (Bld) [Volume fraction]26.9 %Low36.0-46.0The [facility] SystemComment on above: Performed By: #### CBC ####[facility] PATHOLOGY AQPEZSNSBR[address] [place] [address], [address]Ycrlmfhisq (Bld) [Mass/Vol]8.8 g/dLLow12.0-15.0The [facility] SystemComment on above:Performed By: #### CBC ####[facility] PATHOLOGY KMNNZHDGOS[address] [place] [address], [address]QTW (RBC) [Entitic mass]28.7 tiMshfzu21.0-34.0The [facility] SystemComment on above:Performed By: #### CBC ####[facility] PATHOLOGY CBZJNNKLAW[address] [place] [address], [address]SYUU (RBC) [Mass/Vol]32.8 g/jUAckrlj79.0-35.9The [facility] Comment on above:Performed By: #### CBC ####[facility] PATHOLOGY VFGJGQFRKS[address] [place] [address], [address]NQW (RBC) [Entitic vol]87 fLNormal 80-100The [facility] SystemComment on above:Performed By: #### CBC ####[facility] PATHOLOGY XDTQSSMBZQ[address] [place] [address], [address]Hpylldeo mean volume (Bld) [Entitic vol]7.8 fLNormal7.5-11.2The [facility] SystemComment on above:Performed By: #### CBC ####[facility] PATHOLOGY FNNEIZODPZ[address] [place] [address], [address]Mklqrruim (Bld) [#/Vol]560 10*3/hFJrod429-120Hdr [facility] HospitalroHealth SystemComment on above:Performed By: #### CBC ####[facility] PATHOLOGY GOSGTWIAEP[address] [place] [address], [address]NTA (Bld) [#/Vol]3.08 10*6/uLLow4.00-5.20The [facility] HospitalroHealth SystemComment on above:Performed By: #### CBC ####[facility] PATHOLOGY GYZYIXCNAA[address] [place] [address], [address]XLP (Bld) [#/Vol]8.2 10*3/uLNormal4.5-11.5The [facility] HospitalroHealth SystemComment on above: Performed By: #### CBC ####[facility] PATHOLOGY JEUMVWQAQR[address] [place] [address], [address]Arefzjjuien distribution width (RBC) [Ratio]15.6 % High11.5-14.5The [facility] HospitalHealth SystemComment on above:Performed By: #### CBC ####[facility] PATHOLOGY UMEEXWGMGY[address] [place] [address], Hematocrit (Bld) [Volume fraction]22.1 %Low36.0-46.0The [facility] Comment on above:Performed By: #### CBC ####[facility] PATHOLOGY EBQLQSSMLZ3[address] [place] [address], [address]Tjpoudjxnx (Bld) [Mass/Vol]7.1 g/dLLow 12.0-15.0The [facility] HospitalHealth SystemComment on above:Performed By: #### CBC ####[facility] PATHOLOGY MAMFGKFUJC[address] [place] [address], [address]GPT (RBC) [Entitic mass]29.4 dlCwkrfh12.0-34.0The [facility] HospitalroSelect [facility] SystemComment on above: Performed By: #### CBC ####[facility] PATHOLOGY WUUMNJLCQC[address] [place] [address], [address]BLEX (RBC) [Mass/Vol]32.3 g/kVUrmwak49.0-35.9The [facility] SystemComment on above:Performed By: #### CBC ####[facility] PATHOLOGY XVDRQPFAPC7924[address] [place] [address], [address]CVM (RBC) [Entitic vol] 91 uKBpadnc16-857Vfx [facility] HospitalroHealth SystemComment on above:Performed By: #### CBC ####[facility] PATHOLOGY FMRVSJDLET[address] [place] [address], Platelet mean volume (Bld) [Entitic vol]7.8 fLNormal7.5-11.2The [facility] HospitalroHealth SystemComment on above:Performed By: #### CBC ####[facility] PATHOLOGY RODBAMCIDN[address] [place] [address], [address]Twxszakbx (Bld) [#/Vol]507 10*3/uLHigh 150-400The [facility] HospitalroHealth SystemComment on above:Performed By: #### CBC ####[facility] PATHOLOGY ULCDVEXXLF[address] [place] [address], [address]ZTP (Bld) [#/Vol]2.43 10*6/uLLow4.00-5.20The [facility] HospitalroHealth SystemComment on above:Performed By: #### CBC ####[facility] PATHOLOGY OGEVLHPSOX[address] [place] [address], [address]DYZ (Bld) [#/Vol]7.3 10*3/uLNormal4.5-11.5The [facility] Comment on above:Performed By: #### CBC ####[facility] PATHOLOGY CRKTTJYGHQ743[address] [place] [address], [address]Ofrgrqyvwdc distribution width (RBC) [Ratio]15.6 %High11.5-14.5The [facility] HospitalroHealth SystemComment on above:Performed By: #### CBC ####[facility] PATHOLOGY OYKAKPJYXW5475[address] [place] [address], [address]Zivljrqxxc (Bld) [Volume fraction]22.1 %Low36.0-46.0The [facility] HospitalroHealth SystemComment on above:Performed By: #### CBC ####[facility] PATHOLOGY BHXKPFTPWD[address] [place] [address], [address]Buhksliglr (Bld) [Mass/Vol]7.0 g/dL Critically low12.0-15.0The [facility] HospitalroHealth SystemComment on above:Performed By: #### CBC ####[facility] PATHOLOGY ACBPJNFMSN4781 [place], [place], MCH (RBC) [Entitic mass]28.9 lpXoioam99.0-34.0The [facility] HospitalroHealth SystemComment on above:Performed By: #### CBC ####[facility] PATHOLOGY WFURHWUYQZ2699 [place], [address]WXMA (RBC) [Mass/Vol]31.7 g/dLLow32.0-35.9The [facility] HospitalroHealth SystemComment on above:Performed By: #### CBC ####[facility] PATHOLOGY ZGHFGTBNNZ94[address] [place] [address], [address]JTB (RBC) [Entitic vol] 91 kNPnrvne63-916Rcm [facility] HospitalHealth SystemComment on above:Performed By: #### CBC ####[facility] PATHOLOGY ZHNFBQNPIC50[address] [place] [address], Platelet mean volume (Bld) [Entitic vol]7.5 fLNormal7.5-11.2The [facility] SystemComment on above:Performed By: #### CBC ####[facility] PATHOLOGY CMKIBOYYCU648[address] [place] [address], [address]Xcquidbpy (Bld) [#/Vol]487 10*3/uLHigh 150-400The [facility] SystemComment on above:Performed By: #### CBC ####[facility] PATHOLOGY MCXHASILXM[address] [place] [address], [address]IQO (Bld) [#/Vol]2.43 10*6/uLLow4.00-5.20The [facility] SystemComment on above:Performed By: #### CBC ####[facility] PATHOLOGY YBVZNKTRPH[address] [place] [address], [address]YLN (Bld) [#/Vol]7.3 10*3/uLNormal4.5-11.5The [facility] Comment on above:Performed By: #### CBC ####[facility] PATHOLOGY HRCTXJSNAT[address] [place] [address], [address]EF HEAD W/O CONTRASTon 62-65-3342FZ HEAD W/O CONTRASTNormalThe [facility] SystemCT Head WO contrastOrdered By: Alfonzo Hernandez on 80-52-0605BE DAS9040.5 (mGy.cm)[facility] Work Phone: cT SeriesHeadTHE [facility] Work Phone: cTDI VOL62.0 (mGy)[facility] Work Phone: PHANTOM TYPEIEC Head Dosimetry PhantomTHE [facility] Work Phone: [facility] Work Phone: IT Head WO contraston 36-07-3746VVLMNLTNFLNH [facility] Work Phone: Radiology Study observation (narrative)[facility] Work Phone: Care Plan Noteon 51-92-8718Yaqyuhfveokqa Authentication Interface Message TextNormalThe [facility] SystemConsultson 08-62-2225Zrocoxakdcbjg Authentication Interface Message TextNormalThe [facility] SystemGLUCOSE, FINGERSTICK-IN OFFICEon 52-68-5974Abbstzh [Mass/Vol] 247 mg/mAHgnu60-678Vxt [facility] SystemComment on above:Performed By: #### [id number] ####NURSING GLUCOSE ZGKNCQO5240 [place], [address] Glucose [Mass/Vol]250 mg/iGZydj73-331Eij [facility] SystemComment on above: Result Comment: Notified ALISTAIR KEY MDPerformed By: #### [id number] ####NURSING GLUCOSE DCDJTRD5943 [place], [place], [address]Pgbfliv [Mass/Vol]250 mg/dLHigh 68 - 110 mg/dLTHE [facility]RO[facility]ALTH SYSTEMGlucose [Mass/Vol]247 mg/bDVwty58 - 110 mg/dLTHE [facility] SYSTEMGlucose [Mass/Vol]250 mg/kKLykl68-532Sel [facility] SystemComment on above:Performed By: #### 50933 ####NURSING GLUCOSE EDOVSFR9160 [place], [place], [address]Yatccei [Mass/Vol]249 mg/sHIpgq76-192Ixz [facility] SystemComment on above:Performed By: #### 22798 ####NURSING GLUCOSE LANPLXL9752 [place], [place], [address]Mqcpize [Mass/Vol]249 mg/dLHigh 68 - 110 mg/dLTHE [facility]ALTH SYSTEMGlucose [Mass/Vol]250 mg/rHIbeu32 - 110 mg/dLTHE [facility] SYSTEMGlucose [Mass/Vol]91 mg/wCNxpovg72-830Nsd [facility] SystemComment on above:Performed By: #### 41649 ####NURSING GLUCOSE VVKTQPF8651 [place], [place], [address]Awqeega [Mass/Vol]91 mg/dL68 - 110 mg/dL THE [facility] SYSTEMInterpretation and review of laboratory resultsNormCarilion New River Valley Medical CenterROOHIOHEALTH PICKER[facility]ITAL SYSTEMTHE [facility] SYSTEMGlucose [Mass/Vol]95 mg/aWWzozbl58-919 THE [facility] SYSTEMComment on above:Performed By: #### 81274 ####NURSING GLUCOSE NKHXHXZ[address] [place] [address], [address]Eakuafeodwnejl and review of laboratory resultsNormCarilion New River Valley Medical CenterROOHIOHEALTH PICKERINGTON [facility]IST [facility]PITAL SYSTEMTHE [facility] Glucose [Mass/Vol]103 mg/lODaxrcm85-698Tmu [facility] SystemComment on above: Performed By: #### [id number] ####NURSING GLUCOSE EDDJNPB2719 [place], [place], [address]Wqnmunr [Mass/Vol]71 mg/wYKwfrdt12-955Izb [facility] HospitalroHealth SystemComment on above:Performed By: #### 58741 ####NURSING GLUCOSE DRYXUWF[address] [place] [address], [address]Vawwntj [Mass/Vol]103 mg/dL68 - 110 mg/dL THE [facility] SYSTEMInterpretation and review of laboratory resultsNormCarilion New River Valley Medical CenterROOHIOHEALTH [facility]ITAL SYSTEMTHE [facility] SYSTEMGlucose [Mass/Vol]71 mg/dL68 - 110 mg/dL THE [facility] SYSTEMInterpretation and review of laboratory resultsNormCarilion New River Valley Medical CenterROHEALTH SYSTEMTHE [facility] NETWORKROOHIOHEALTH PICKER[facility]ITAL SYSTEMLaboratory - Blood bankon 72-91-3978GPK and Rh group Nom (Bld)Blood group A Rh(D) positiveTHE [facility] MAGNESIUMon 82-41-6152Chukaulem [Mass/Vol]1.8 mg/dLLow1.9-2.7The [facility] HospitalHealth SystemComment on above:Result Comment: Note updated reference ranges.Performed By: #### BILL JAUREGUI CH8 ####[facility] PATH[facility] SEZONVPBVN4961 [place], [address]Jbjvktgiy [Mass/Vol]1.8 mg/dLLow1.9 - 2.7 mg/dLTHE [facility] SYSTEMNo Panel Informationon 35-79-9432Zhxonticsnvhvv and review of laboratory resultsAbnoLutheran HospitalTHE [facility] NETWORKROOHIOHEALTH P[facility] SYSTEM Interpretation and review of laboratory resultsAbnoSt. Francis Hospital SYSTEMTHE [facility] NETWORKROOHIOHEALTH PICK[facility] SYSTEMInterpretation and review of laboratory resultsAbKindred HealthcareTHE [facility] SYSTEMNo Panel InformationOrdered By: Oralia Moreira on 62-74-8767LAO [facility] NETWORKROOHIOHEALTH PICKERINGTON METHODIST HOSPITAL SYSTEMPHOSPHORUSon 61-56-7258Upfunucyq [Mass/Vol]3.6 mg/dLNormal2.5-5.0The [facility] SystemComment on above:Result Comment: Note updated reference ranges.Performed By: #### BILL JAUREGUI CH8 ####[facility] PATH[facility] DMTMAWSXSF[address] [place] [address], Interpretation and review of laboratory resultsNoSt. Francis Hospital SYSTEM Phosphate [Mass/Vol]3.6 mg/dL2.5 - 5.0 mg/dLTHE [facility] SYSTEMProgress Notes on 32-30-4643Fvpcuuoikpxsd Authentication Interface Message TextNoUniversity [facility]als [facility] SystemTranscription Authentication Interface Message TextNoUniversity [facility] SystemTranscription Authentication Interface Message TextNoUniversity [facility] SystemTranscription Authentication Interface Message TextNoUniversity Hospitals [facility] SystemTranscription Authentication Interface Message /LADARIUS Bauman notified of critical Hemoglobin value of 7.0. /LADARIUS Bauman read back critical results. New orders received.NormalThe [facility] SystemRED BLOOD CELL COMPONENTon [id number] ORDER ITEMProduct status info to followGuthrie Cortland Medical Center SystemComment on above:Performed By: #### RBO ####S PATHOLOGY KVAWTPAJVI1288 [place], [address]UR Order ItemProduct status info to followTHE [facility]ITAL SYSTEMTHE [facility] SYSTEMRED BLOOD CELL UNIT STATUSon [id number] PRODUCT [id number] [facility] Comment on above:Performed By: #### RBU ####S PATHOLOGY KWQGPSKKXI[address] [place] [address], [address]AFSCZ PRODUCT DESCRIPTIONRed Blood CellsNoUniversity Hospitals Elyria Medical Center SystemComment on above:Performed By: #### RBU ####[facility] PATHOLOGY GNNUJWRSLS[address] [place] [address], [address]UGSKP PRODUCT STATUSTransfusedNormalThe [facility] SystemComment on above:Performed By: #### RBU ####[facility] PATHOLOGY HCHOANVTFF[address] [place] [address], [address]DYMBA PRODUCT UNIT [id number] [facility] Comment on above:Performed By: #### RBU ####[facility] PATHOLOGY KHJIWRKNIU[address] [place] [address], [address]QDUUP PRODUCT UNIT [id number] Cortland Medical Center SystemComment on above:Result Comment: A PosPerformed By: #### RBU ####[facility] PATHOLOGY FEXWKYCYYL64[address] [place] [address], CROSSMATCH INTERPRETATIONCompatible (E)NormalCherrington Hospital SystemComment on above:Performed By: #### RBU ####[facility] PATHOLOGY SYBHVMCKIC[address] [place] [address], [address]HEPE AND SCREENon 81-88-3935NRY and Rh group Nom (Bld)Blood group A Rh(D) positiveGuthrie Cortland Medical Center SystemComment on above: Performed By: #### TS ####[facility] PATHOLOGY NXJZKIQCDO[address] [place] [address], [address]ANTX INTNegativeThe Jewish Hospital Comment on above:Performed By: #### TS ####[facility] PATHOLOGY NNUBCLWGQE18[address] [place] [address], [address]Txutk group antibody screen QlNegative THE [facility] SYSTEMTHE METROOPNET Technologies, Inc. SYSTEMTreatment Plan Noteon 07-05-2023 [employer] Authentication Interface Message TextNormalThe Huntington HospitalroXeros System BASIC METABOLIC PANELon 96-98-6813Ggvoi gap [Moles/Vol]7 mmol/DMnc98-39Qnw [facility] HospitalroHealth SystemComment on above:Performed By: #### MG BILL, CH8 ####[facility] PATH[facility] JFRBMHTDED0711 [place], [address]Jbrnqso [Mass/Vol]7.0 mg/dLLow8.6-10.3The [facility] SystemComment on above:Performed By: #### MG BILL, CH8 ####[facility] PATH[facility] CRUXENPMDL6782 [place], [address]Cqvprsyk [Moles/Vol]115 mmol/HWgsa65-887Rwo [facility] HospitalroHealth SystemComment on above:Performed By: #### MG BILL, CH8 ####[facility] PATHOLOGY FXMJEKGTJG3064 [place], [address]BV5 [Moles/Vol]23 mmol/OOxirks93-68Zta [facility] HospitalroHealth SystemComment on above:Performed By: #### MG BILL, CH8 ####[facility] PATHOLOGY WRXDIYJUGJ3514 [place], [address]Osqffnrngt [Mass/Vol]0.39 mg/dLLow0.60-1.20The [facility] HospitalroHealth SystemComment on above:Performed By: #### BILL MG, CH8 ####[facility] PATHOLOGY ESVDSMKDNL8750 [place], [address]DKWQPLFKP GFR (CKD-EPI)116 mL/min/1.73sqmNormal>=60The [facility] HospitalHealth SystemComment on above: Result Comment: 2020 CKD [...] Inclusion of Race in Diagnosing Kidney Disease. [place] Journal of Kidney Diseases 202;79(2):268-88.e1.2. N Engl J Med 1 Vol. 385 Issue 19 Pages 3213-2299Performed By: #### MG BILL, HUBER8 ####[facility] PATH[facility] CQFRVQUJEB6954 [place], [address]Nqglgip [Mass/Vol]115 mg/tQEhzk18-608Lic [facility] HospitalroSelect Medical [facility]ty [facility] SystemComment on above:Performed By: #### MG BILL, CH8 ####[facility] PATH[facility]Y JZZBCCUDQA8220 [place], [place], [address]Potassium [Moles/Vol]3.8 mmol/LNormal3.5-5.0The [facility] HospitalroXeros System Comment on above:Performed By: #### MG BILL, HUBER8 ####[facility] PATHOLOGY IXXCYTAQQV5827 [place], [address]Zxarwa [Moles/Vol]141 mmol/HNkdhhv441-694Svp [facility] Community HospitalXeros SystemComment on above:Performed By: #### MG BILL, CH8 ####[facility] PATHOLOGY QRECMFJLBT0212 [place], [address]Lmlq nitrogen [Mass/Vol]10 mg/dLNormal7-25The [facility]ro[facility] System Comment on above:Performed By: #### MG BILL, CH8 ####[facility] PATHOLOGY OJPFHJRBDF4751 [place], [address]Spfmy metabolic 2000 panelon 25-44-1945Sjojv gap [Moles/Vol]7 mmol/LLow10 - 20THE [facility] NETWORKROHEALTH SYSTEM Work Phone: Calcium [Mass/Vol]7.0 mg/dLLow8.6 - 10.3 mg/dLTHE [facility] Work Phone: Chloride [Moles/Vol]115 mmol/LHigh98 - 107 mmol/LTHE [facility] Work Phone: CO2 [Moles/Vol]23 mmol/L21 - 31 mmol/LTHE [facility] Work Phone: Creatinine [Mass/Vol]0.39 mg/dLLow0.60 - 1.20 mg/dLTHE [facility] Work Phone: GFR/1.73 sq M.predicted CKD-EPI (S/P/Bld) [Vol rate/Area]116- PINFTHE [facility] Work Phone: Glucose [Mass/Vol]115 mg/gKNnfn33 - 109 mg/dLTHE [facility] Work Phone: Interpretation and review of laboratory results AbnormalTHE [facility] Work Phone: Potassium [Moles/Vol]3.8 mmol/L3.5 - 5.0 mmol/LTHE [facility] Work Phone: Sodium [Moles/Vol]141 mmol/L136 - 145 mmol/LTHE [facility] Work Phone: Urea nitrogen [Mass/Vol]10 mg/dL7 - 25 mg/dLTHE [facility] Work Phone: [facility] Work Phone: CBC panel Auto (Bld)Ordered By: Clare Currie on 93-55-0146Tallbxkljhj distribution width (RBC) [Ratio][facility] Hematocrit (Bld) [Volume fraction][facility] SYSTEMHemoglobin (Bld) [Mass/Vol][facility] SYSTEMMCH (RBC) [Entitic mass][facility] MCHC (RBC) [Mass/Vol][facility] SYSTEMMCV (RBC) [Entitic vol][facility] SYSTEMPlatelet mean volume (Bld) [Entitic vol][facility] Platelets (Bld) [#/Vol][facility] SYSTEMRBC (Bld) [#/Vol]THE [facility] SYSTEMWBC (Bld) [#/Vol][facility] SYSTEMTHE [facility] SYSTEMCBC panel Auto (Bld)on 27-98-6924Vxyepwugqnf distribution width (RBC) [Ratio]15.9 %High 11.5 - 14.5 %[facility] Work Phone: Hematocrit (Bld) [Volume fraction]28.1 %Low36.0 - 46.0 %THE [employer] [facility] Work Phone: Hemoglobin (Bld) [Mass/Vol]9.1 g/dLLow12.0 - 15.0 g/dL THE [employer] [facility] Work Phone: Interpretation and review of laboratory results AbnormalTHE [employer] [facility] Work Phone: MCH (RBC) [Entitic mass]29.9 pg26.0 - 34.0 pgTHE [employer] [facility] Work Phone: MCHC (RBC) [Mass/Vol]32.3 g/dL32.0 - 35.9 g/dLTHE [employer] Work Phone: [phone] (RBC) [Entitic vol]92 fL80 - 100 fLTHE [employer] SYSTEM Work Phone: Platelet mean volume (Bld) [Entitic vol]8.0 fL7.5 - 11.2 fLTHE [employer] [facility] Work Phone: Platelets (Bld) [#/Vol]503 10*3/mBGgkk263 - 400 K/uL THE [employer] [facility] Work Phone: RBC (Bld) [#/Vol]3.05 10*6/uLLowTHE [employer] [facility] Work Phone: WBC (Bld) [#/Vol]10.3 10*3/uL4.5 - 11.5 K/uLTHE [employer] [facility] Work Phone: THE [employer] [facility] Work Phone: COMPLETE BLOOD COUNTon 30-94-8560Soawadvkgix distribution width (RBC) [Ratio]15.9 %High11.5-14.5The [employer] SystemComment on above:Performed By: #### CBC ####[facility] PATHOLOGY TRTWJHZRBL7098 [place], [address]Urnkkbirmy (Bld) [Volume fraction]28.1 %Low 36.0-46.0The [facility] HospitalroHealth SystemComment on above:Performed By: #### CBC ####[facility] PATHOLOGY EZOJOCWNBE[address] [place] [address], [address]Xmvrnzgpyd (Bld) [Mass/Vol]9.1 g/dLLow12.0-15.0The [facility] HospitalroHealth SystemComment on above: Performed By: #### CBC ####[facility] PATHOLOGY FCCOVTHBMO[address] [place] [address], [address]THN (RBC) [Entitic mass]29.9 oqSpivsx30.0-34.0The [facility] HospitalHealth SystemComment on above:Performed By: #### CBC ####[facility] PATHOLOGY QKIUCZTOZB[address] [place] [address], [address]HYAX (RBC) [Mass/Vol] 32.3 g/zKGtmbau61.0-35.9The [facility] HospitalHealth SystemComment on above:Performed By: #### CBC ####[facility] PATHOLOGY ZVZUCAVIIY46[address] [place] [address], [address]UZO (RBC) [Entitic vol]92 eHImtbgn79-342Ksq [facility] HospitalHealth SystemComment on above:Performed By: #### CBC ####[facility] PATHOLOGY NCZGKTBMTM[address] [place] [address], [address]Rdiurbiz mean volume (Bld) [Entitic vol]8.0 fL Normal7.5-11.2The [facility] HospitalHealth SystemComment on above:Performed By: #### CBC ####[facility] PATHOLOGY SGCDTTRFQV[address] [place] [address], Platelets (Bld) [#/Vol]503 10*3/xMYyxw955-695Jrn [facility] HospitalHealth SystemComment on above:Performed By: #### CBC ####[facility] PATHOLOGY AMRHHJWZNC[address] [place] [address], [address]IHH (Bld) [#/Vol]3.05 10*6/uLLow4.00-5.20The [facility] HospitalHealth SystemComment on above:Performed By: #### CBC ####[facility] PATHOLOG[facility] ETZTJUUKER[address] [place] [address], [address]YLD (Bld) [#/Vol]10.3 10*3/uLNormal4.5-11.5The [facility] SystemComment on above:Performed By: #### CBC ####S PATHOLOGY IBNTTPKZQA[address] [place] [address], RMXBujgza22.0-46.0The [facility] HospitalHealth SystemComment on above:Result Comment: Contaminated,please resubmit.This is a corrected result. Previous result on 07/04/2023 at [facility] EDT was 20.7 %Performed By: #### CBC ####S PATHOLOGY TGHYVIRVTW[address] [place] [address], [address]AJLFtscln13.0-15.0The [facility] SystemComment on above:Result Comment: Contaminated,please resubmit.This is a corrected result. Previous result on 07/04/2023 at [facility] EDT was 6.8 g/dLPerformed By: #### CBC ####S PATHOLOGY NRGINCWKBL[address] [place] [address], [address]VMYDortji80.0-34.0The [facility] HospitalHealth SystemComment on above:Result Comment: Contaminated,please resubmit.This is a corrected result. Previous result on 07/04/2023 at [facility] EDT was 30.1 pgPerformed By: #### CBC ####S PATHOLOGY GJYQCBNWIZ[address] [place] [address], [address]OTJK Arxvic18.0-35.9The [facility] SystemComment on above:Result Comment: Contaminated,please resubmit.This is a corrected result. Previous result on 07/04/2023 at [facility] EDT was 32.8 g/dLPerformed By: #### CBC ####S PATHOLOGY ACDQHGGVHO[address] [place] [address], [id number] SystemComment on above:Result Comment: Contaminated,please resubmit.This is a corrected result. Previous result on 07/04/2023 at [facility] EDT was 92 fLPerformed By: #### CBC ####S PATHOLOGY [id number] [place], [id number] [facility] SystemComment on above:Result Comment: Contaminated,please resubmit.This is a corrected result. Previous result on 07/04/2023 at [facility] EDT was 8.3 fLPerformed By: #### CBC ####S PATHOLOGY [id number] [place] [address], [id number] [facility] SystemComment on above:Result Comment: Contaminated,please resubmit.This is a corrected result. Previous result on 07/04/2023 at [facility] EDT was 381 K/uLPerformed By: #### CBC ####S PATHOLOGY TLFQXEQQGG[address] [place] [address], [address]VXPDdnmxx9.00-5.20The [facility] SystemComment on above:Result Comment: Contaminated,please resubmit.This is a corrected result. Previous result on 07/04/2023 at [facility] EDT was 2.25 M/uLPerformed By: #### CBC ####S PATHOLOGY SZRRFSLGVC[address] [place] [address], [address]TYJ-DCPyysxu77.5-14.5[facility] Comment on above:Result Comment: Contaminated,please resubmit.This is a corrected result. Previous result on 07/04/2023 at [facility] EDT was 15.5 %Performed By: #### CBC ####S PATHOLOGY DEXXRAHHRQ[address] [place] [address], [address]RWYXixsjz3.5-11.5The [facility] SystemComment on above:Result Comment: Contaminated,please resubmit.This is a corrected result. Previous result on 07/04/2023 at [facility] EDT was 7.1 K/uLPerformed By: #### CBC ####S PATHOLOGY OQJHACPMLO[address] [place] [address], [address]Gksstynrtc 22-92-2634Uuzbvkjriwgoi Authentication Interface Message TextNoUniversity [facility]als [facility] SystemTranscription Authentication Interface Message TextNoUniversity [facility]als [facility] SystemTranscription Authentication Interface Message TextNoUniversity Hospitals [facility] SystemGLUCOSE, FINGERSTICK-IN OFFICEon 21-58-9267Ncmywmu [Mass/Vol] 129 mg/hBTyfi14-147Ocp [facility] SystemComment on above:Performed By: #### [id number] ####NURSING GLUCOSE JPNCPYJ[address] [place] [address], [address] Glucose [Mass/Vol]129 mg/fNFpbq29 - 110 mg/dLTHE [facility] NETWORKROOHIOHEALTH [facility] SYSTEM Interpretation and review of laboratory resultsAbnoLutheran HospitalTHE [facility] NETWORKROOHIOHEALTH [facility] SYSTEMGlucose [Mass/Vol]308 mg/zRRsoy73-315Spi [facility] Comment on above:Performed By: #### [id number] ####NURSING GLUCOSE UJRFCKF[address] [place] [address], 00802Ptytljb [Mass/Vol]308 mg/pQXbqh67 - 110 mg/dLTHE [facility] NETWORKROOHIOHEALTH P[facility] SYSTEMInterpretation and review of laboratory results AbnormalTHE [facility] SYSTEMTHE [facility] NETWORKROOHIOHEALTH P[facility]ITAL SYSTEMGlucose [Mass/Vol]175 mg/dL Szlo15-972Kst [facility] SystemComment on above:Performed By: #### 06174 ####NURSING GLUCOSE JWRCDMM[address] [place] [address], 08534Djixzib [Mass/Vol]175 mg/oCSnps64 - 110 mg/dLTHE [facility] NETWORKROOHIOHEALTH [facility] SYSTEMInterpretation and review of laboratory resultsAbGrand Lake Joint Township District Memorial HospitalROOHIOHEALTH [facility] SYSTEM Glucose [Mass/Vol]155 mg/hPPknl10-350Lsa [facility] SystemComment on above: Performed By: #### [id number] ####NURSING GLUCOSE BBVADYC[address] [place] [address], 57185Nagygmk [Mass/Vol]155 mg/tSXpma71 - 110 mg/dLTHE [facility] NETWORKROOHIOHEALTH [facility] SYSTEMInterpretation and review of laboratory resultsAbnoLutheran HospitalTHE [facility] SYSTEMMAGNESIUMon 33-63-4636Dlwazabwg [Mass/Vol]1.7 mg/dLLow1.9-2.7The [facility] SystemComment on above:Result Comment: Note updated reference ranges.Performed By: #### PHOS, MG, CH8 ####[facility] PATHOLOGY EOWTSBZSKN[address] [place] [address], [address]Pwdidoszp [Mass/Vol]1.7 mg/dLLow1.9 - 2.7 mg/dLTHE WILSON [address]RE[address] HOSPITALNo Panel Information on 84-35-9709Lhaulktgvnascx and review of laboratory resultsAbKettering Health Greene Memorial SYSTEMPHOSPHORUSon 47-68-2987Zbvetslrc [Mass/Vol]2.4 mg/dLLow2.5-5.0The [facility] SystemComment on above:Result Comment: Note updated reference ranges.Performed By: #### PHOS, MG, CH8 ####S PATHOLOGY ZYNCGIBDQL[address] [place] [address], [address]Rccbcnric [Mass/Vol]2.4 mg/dLLow2.5 - 5.0 mg/dLTHE [facility] SYSTEMProgress Noteson 43-09-0463Erxdhjkahklgq Authentication Interface Message TextGuthrie [facility] SystemTranscription Authentication Interface Message TextGuthrie Cort[facility] SystemTranscription Authentication Interface Message TextThe Jewish HospitalTranscription Authentication Interface Message Rickey Ambriz notified of critical Hemoglobin value of 6.8. LADARIUS Ambriz read back critical results. New orders received. Redraw CBCNoAvita Health System Ontario HospitalRED BLOOD CELL COMPONENTon [id number] ORDER ITEMProduct status info to followThe Jewish HospitalComment on above:Performed By: #### RBO ####S PATHOLOGY TYBJTCPDFP[address] [place] [address], [address]DW Order ItemProduct status info to followREGENCY HOSPITAL CLEVELAND WESTBASIC METABOLIC PANELon 88-38-9493Fhirm gap [Moles/Vol]9 mmol/MEcr18-00Lxu [facility] SystemComment on above:Performed By: #### CH8 ####[facility]HS PATHOLOGY RCJSRBJQFR[address]65[address] [place] [address], [address]Prsdekr [Mass/Vol]7.7 mg/dLLow8.6-10.3The [facility] SystemComment on above:Performed By: #### CH8 ####S PATHOLOGY BMEKMNCGNU[address] [place] [address], [place], [address]Azwbdmgx [Moles/Vol]107 mmol/VCteoaf42-433Hxj [facility] HospitalroSelect [facility] SystemComment on above:Performed By: #### CH8 ####[facility] PATHOLOGY WUXCUKXSOQ4677 [place], [address]JL4 [Moles/Vol]26 mmol/XSsjkwm78-21Wah [facility] SystemComment on above:Performed By: #### CH8 ####[facility] PATHOLOGY DNEOQCOXKH1950 [place], [place], Creatinine [Mass/Vol]0.51 mg/dLLow0.60-1.20The [facility] SystemComment on above:Performed By: #### CH8 ####[facility] PATHOLOGY LWGMVRXKKY[address] [place] [address], [address]MVESLKJCW GFR (CKD-EPI)109 mL/min/1.73sqmNormal >=60The [facility] SystemComment on above:Result Comment: 2020 CKD EPI [...] Inclusion of Race in Diagnosing Kidney Disease. [place] Journal of Kidney Diseases 2021;79(2):26 8-88.e1.2. N Engl J Med 2020 Vol. 385 Issue 19 Pages 6109-2116Performed By: #### CH8 ####S PATHOLOGY XUAQFDQBPS0304 [place], [place], Glucose [Mass/Vol]283 mg/xYJmvu99-235Hvb [facility] SystemComment on above: Performed By: #### CH8 ####S PATHOLOGY MIQJNLHYUB7730 [place], [address]Leidafdpo [Moles/Vol]4.3 mmol/LNormal3.5-5.0The [facility] SystemComment on above:Performed By: #### CH8 ####S PATHOLOGY DPMLWIDXGH9164 [place], [address]Lerymz [Moles/Vol]138 mmol/NSehqcb905-638Tpw [facility] HospitalroHealth SystemComment on above:Performed By: #### HUBER8 ####S PATHOLOGY KKHUBHIKFS[address] [place] [address], [address]Maaq nitrogen [Mass/Vol]11 mg/dLNormal7-25The [facility] SystemComment on above: Performed By: #### HUBER8 ####S PATHOLOGY EMEIMVLFXY7[address] [place] [address], [address]Euogj gap [Moles/Vol]8 mmol/PUjq70-40Qta [facility] HospitalHealth SystemComment on above:Performed By: #### MG GARRIDO PHOS ####MHS PATHOLOGY TEZGVGTLUT[address] [place] [address], [address]Spamedo [Mass/Vol]7.6 mg/dLLow8.6-10.3The [facility] HospitalroHealth SystemComment on above:Performed By: #### MG GARRIDO PHOS ####S PATHOLOGY CBMRPYGRHE42[address] [place] [address], [address]Sxenkxgg [Moles/Vol]111 mmol/IWhbs33-158Epj [facility] HospitalroHealth SystemComment on above:Performed By: #### MG GARRIDO PHOS ####S PATHOLOGY ZTYJEGCKRF[address] [place] [address], [address]BT1 [Moles/Vol]27 mmol/HQbopys97-26Gde [facility] HospitalroHealth SystemComment on above:Performed By: #### MG GARRIDO PHOS ####S PATHOLOGY PNHKZJRRSR[address] [place] [address], [address]Oazzpmccxh [Mass/Vol]0.46 mg/dLLow0.60-1.20The [facility] HospitalHealth SystemComment on above:Performed By: #### MG GARRIDO PHOS ####[facility]HS PATHOLOGY YIKBEQVZUD[address] [place] [address], [address]JVRYASYNR GFR (CKD-EPI)112 mL/min/1.73sqmNormal>=60The [facility] HospitalHealth SystemComment on above: Result Comment: 2020 CKD [...] Inclusion of Race in Diagnosing Kidney Disease. [place] Journal of Kidney Diseases 2021;79(2):268-88.e1.2. N Engl J Med 1 Vol. 385 Issue 19 Pages 4655-6277Performed By: #### HUBER8 MG, PHOS ####MHS PATHOLOGY WERGWECWGS2623 [place], [address]Lucbyvq [Mass/Vol]89 mg/zPDggnnf65-501Rmt [facility] HospitalroHealth SystemComment on above:Performed By: #### RADHIKA MG, PHOS ####MHS PATHOLOGY TDJJGBHITQ2532 [place], [place], [address]Potassium [Moles/Vol]3.6 mmol/LNormal3.5-5.0The [facility] HospitalroHealth System Comment on above:Performed By: #### RADHIKA MG, PHOS ####MHS PATHOLOGY YUCHGFLQES6827 [place], [address]Lgdjtv [Moles/Vol]142 mmol/NVdmllf059-145Qbm [facility] HospitalroHealth SystemComment on above:Performed By: #### RADHIKA MG, PHOS ####MHS PATHOLOGY THMNKCZUVX9919 [place], [address]Fqtl nitrogen [Mass/Vol]13 mg/dLNormal7-25The [facility] Comment on above:Performed By: #### RADHIKA MG, PHOS ####MHS PATHOLOGY JXKIHSCYCO7882 [place], [address]Tahbr metabolic 2000 panelOrdered By: Ankit Holland on 72-00-9130Itkxl gap [Moles/Vol]9 mmol/LLow 10 - 20THE [facility] SYSTEMCalcium [Mass/Vol]7.7 mg/dLLow8.6 - 10.3 mg/dLTHE METROHEALTH SYSTEMChloride [Moles/Vol]107 mmol/L98 - 107 mmol/LTHE [facility]RO[facility]ALTH SYSTEMCO2 [Moles/Vol]26 mmol/L21 - 31 mmol/LTHE [facility] SYSTEMCreatinine [Mass/Vol]0.51 mg/dLLow0.60 - 1.20 mg/dLTHE METROHEALTH SYSTEMGFR/1.73 sq M.predicted CKD-EPI (S/P/Bld) [Vol rate/Area]109- PINFTHE METRO[facility]ALTH SYSTEM Glucose [Mass/Vol]283 mg/cVBcfn00 - 109 mg/dLTHE [facility] Interpretation and review of laboratory resultsAbnormalTHE [facility] SYSTEM Potassium [Moles/Vol]4.3 mmol/L3.5 - 5.0 mmol/LTHE [facility]ALTH SYSTEMSodium [Moles/Vol]138 mmol/L136 - 145 mmol/LTHE [facility]ALTH SYSTEMUrea nitrogen [Mass/Vol]11 mg/dL7 - 25 mg/dLTHE [facility]ALTH SYSTEMTHE [facility]ALTH SYSTEMBasic metabolic 2000 panelon 65-61-1755Bmxax gap [Moles/Vol]8 mmol/LLow10 - 20THE [facility]ALTH SYSTEMCalcium [...] 25 mg/dLTHE METROHEALTH SYSTEMCBC panel Auto (Bld)on 97-89-2218Tywsuxdfrsd distribution width (RBC) [Ratio]14.6 %High11.5 - 14.5 %THE METROHEALTH SYSTEMHematocrit (Bld) [Volume fraction]22.8 %Low36.0 - 46.0 %THE METROOHIOHEALTH PICKERINGTON METHODIST HOSPITAL SYSTEMHemoglobin (Bld) [Mass/Vol] 7.5 g/dLLow12.0 - 15.0 g/dLTHE [facility] NETWORKROOHIOHEALTH PICKERINGTON [facility]IST [facility]ITAL SYSTEMInterpretation and review of laboratory resultsAbnormalTHE [facility] NETWORKROOHIOHEALTH PICKERINGTON METHODIST HOSPITAL SYSTEMMCH (RBC) [Entitic mass]29.9 pg 26.0 - 34.0 pgTHE METROHEALTH SYSTEMMCHC (RBC) [Mass/Vol]33.1 g/dL32.0 - 35.9 g/dLTHE METROOHIOHEALTH PICKERINGTON METHODIST HOSPITAL SYSTEMMCV (RBC) [Entitic vol]91 fL80 - 100 fLTHE METROHEALTH SYSTEMPlatelet mean volume (Bld) [Entitic vol]9.2 fL7.5 - 11.2 fLTHE METROHEALTH SYSTEMPlatelets (Bld) [#/Vol]347 10*3/uL150 - 400 K/uLTHE METROHEALTH SYSTEMRBC (Bld) [#/Vol]2.52 10*6/uLLowTHE METROHEALTH SYSTEMWBC (Bld) [#/Vol]10.1 10*3/uL 4.5 - 11.5 K/uLTHE [facility]ALTH SYSTEMTHE [facility] NETWORKROOHIOHEALTH PICKERINGTON [facility]IST [facility]OSPITAL SYSTEMCOMPLETE BLOOD COUNT on 08-57-2490Iahziuepagk distribution width (RBC) [Ratio]14.6 %High11.5-14.5The [facility] HospitalroSelect Medical Specialty [facility] SystemComment on above:Performed By: #### CBC ####S PATHOLOGY BCGLYMGIUV7[address] [place] [address], [address]Ikedqtqoey (Bld) [Volume fraction]22.8 %Low36.0-46.0The [facility] SystemComment on above: Performed By: #### CBC ####S PATHOLOGY DMAEFEFPHO[address] [place] [address], [address]Ilbbbxhtrw (Bld) [Mass/Vol]7.5 g/dLLow12.0-15.0The [facility] SystemComment on above:Performed By: #### CBC ####[facility] PATHOLOGY XXHXDFPJIJ2643 [place], [address]DLU (RBC) [Entitic mass]29.9 qgRjuhfm42.0-34.0The [facility] HospitalroHealth SystemComment on above:Performed By: #### CBC ####[facility] PATHOLOGY MVYZRCNUAT[address] [place] [address], [address]EAMX (RBC) [Mass/Vol]33.1 g/cZIbzxuz65.0-35.9The [facility] Hospitalro[facility] System Comment on above:Performed By: #### CBC ####[facility] PATHOLOGY JPMEWNJFPC[address] [place] [address], [address]MBB (RBC) [Entitic vol]91 fLNormal 80-100The [facility] HospitalHealth SystemComment on above:Performed By: #### CBC ####[facility] PATHOLOGY ZKDEJKDIPN[address] [place] [address], [address]Cxxmvwgo mean volume (Bld) [Entitic vol]9.2 fLNormal7.5-11.2The [facility] HospitalroHealth SystemComment on above:Performed By: #### CBC ####[facility] PATHOLOGY ZEYJMHYMZC[address] [place] [address], [address]Jkkubghsi (Bld) [#/Vol]347 10*3/lQQdsyiz182-420Abv [facility] SystemComment on above:Performed By: #### CBC ####[facility] PATHOLOGY MUSHXCJQKF[address] [place] [address], [address]CYG (Bld) [#/Vol]2.52 10*6/uLLow4.00-5.20The [facility] HospitalHealth SystemComment on above:Performed By: #### CBC ####[facility] PATHOLOGY IEVARANNCL9[address] [place] [address], [address]RBX (Bld) [#/Vol]10.1 10*3/uLNormal4.5-11.5The [facility] HospitalHealth SystemComment on above: Performed By: #### CBC ####[facility] PATHOLOGY EYJQQJSONY[address] [place] [address], [address]XTFKOKQ, CSF/GRAM STAINOrdered By: Arianna Burkett on 70-38-3250Xnzensnj identified Cx Nom (CSF)No GrowthTHE [facility] SYSTEM Microscopic observation Gram stain Nom (Unsp spec)This Gram Stain was performed on a Cytocentrifuged specimen.THE [facility]ROHEALTH SYSTEMMicroscopic observation Gram stain Nom (Unsp spec)No Polymorphonuclear Leukocytes seenTHE [facility] Microscopic observation Gram stain Nom (Unsp spec)No Squamous Epithelial Cells seenTHE METROHEALTH SYSTEMMicroscopic observation Gram stain Nom (Unsp spec)No organisms seenTHE [facility]RO[facility]ALTH SYSTEMTHE METROOHIOHEALTH PICKERINGTON METHODIST [facility]OSPITAL SYSTEMCare Plan Noteon 73-51-1683Pumguccjfeobg Authentication Interface Message TextNormalThe MetroHealth SystemConsultson 27-95-4089Vnzkxuzttriaf Authentication Interface Message TextNormChildren's Hospital of Richmond at VCUroHealth SystemGLUCOSE, FINGERSTICK-IN OFFICEon 32-42-3907Hybebrt [Mass/Vol]133 mg/cJFfqv07-822Kaj [facility] SystemComment on above:Performed By: #### 88316 ####NURSING GLUCOSE UCBPLLU3478 [place], [place], [address]Wqgvhcn [Mass/Vol]133 mg/sMPkii77-915Bag [facility] SystemComment on above:Performed By: #### 97319 ####NURSING GLUCOSE VCNEPOO4327 [place], [place], [address]Qfonbcg [Mass/Vol]81 mg/bXQotnfa23-872Lgr [facility] SystemComment on above:Performed By: #### 33138 ####NURSING GLUCOSE QETALQD0614 [place], [place], [address]Nuxlvxh [Mass/Vol]91 mg/dL Nvzceg55-506Wnr [facility] SystemComment on above:Performed By: #### 03150 ####NURSING GLUCOSE FGWDYTF8139 [place], [place], [address]Caobast [Mass/Vol]91 mg/dL68 - 110 mg/dLTHE METROHEALTH SYSTEMGlucose [Mass/Vol]81 mg/dL 68 - 110 mg/dLTHE METROHEALTH SYSTEMGlucose [Mass/Vol]301 mg/uLKnyo64-109Wjx [facility] SystemComment on above:Performed By: #### 67514 ####NURSING GLUCOSE HLXJDZP9935 [place], [place], [address]Qlisdha [Mass/Vol]203 mg/dLHigh 68-110The [facility] SystemComment on above:Performed By: #### 91248 ####NURSING GLUCOSE IMZYQKP3890 [place], [place], [address]Yzwavra [Mass/Vol]409 mg/sFIxhv63-210Ags [facility] SystemComment on above:Performed By: #### 95975 ####NURSING GLUCOSE HRTEYHA[address] [place] [address], [address]Ghrcjrx [Mass/Vol]301 mg/nZKwtn98 - 110 mg/dLTHE [facility] Interpretation and review of laboratory resultsAbnormalTHE [facility] NETWORKROHEALTH SYSTEMTHE METRO[facility]ALTH SYSTEMGlucose [Mass/Vol]409 mg/fUNodv52 - 110 mg/dLTHE [facility]ALTH SYSTEMGlucose [Mass/Vol]203 mg/tDQyql27 - 110 mg/dLTHE [facility]ALTH SYSTEMGlucose [Mass/Vol]119 mg/yHStno85-777Nqn [facility] SystemComment on above:Performed By: #### 50916 ####NURSING GLUCOSE GLXWPYC1230 [place], [place], [address]Lbcbbyh [Mass/Vol]65 mg/rOEtv38-429Vap [facility] SystemComment on above: Performed By: #### 58211 ####NURSING GLUCOSE LWDWLMB[address] [place] [address], [address]Kzomjyi [Mass/Vol]119 mg/pCQnke97 - 110 mg/dLTHE [facility]ALTH SYSTEMInterpretation and review of laboratory resultsAbnormalTHE [facility] NETWORKROHEALTH SYSTEMTHE [facility]ALTH SYSTEMGlucose [Mass/Vol]65 mg/dLLow68 - 110 mg/dLTHE [facility] SYSTEMInterpretation and review of laboratory results AbnormalTHE METROHEALTH SYSTEMTHE METROHEALTH SYSTEMGlucose [Mass/Vol]96 mg/dL Goeykj27-504Ccv [facility] SystemComment on above:Performed By: #### 71443 ####NURSING GLUCOSE UUWKNLB4097 [place], [place], [address]Hauklsu [Mass/Vol]74 mg/rWPhdfii71-349Mdn [facility] HospitalroHealth SystemComment on above:Performed By: #### 63053 ####NURSING GLUCOSE XMFPVKN[address] [place] [address], [address]Jbcvnvw [Mass/Vol]96 mg/dL68 - 110 mg/dLTHE [facility] NETWORKROOHIOHEALTH P[facility] SYSTEM Interpretation and review of laboratory resultsNoSt. Francis Hospital SYSTEMTHE [facility] NETWORKROOHIOHEALTH PICKER[facility]ITAL SYSTEMGlucose [Mass/Vol]124 mg/kMXcuk34-442Vsw [facility] HospitalroSelect [facility] System Comment on above:Performed By: #### 55471 ####NURSING GLUCOSE IXUUHEU7556 [place], [place], [address]Frtocun [Mass/Vol]51 mg/dLCritically low 68-110The [facility] SystemComment on above:Result Comment: Result Not ConfirmedPerformed By: #### 30409 ####NURSING GLUCOSE VVOVOMP0135 [place], [place], [address]Xuhqago [Mass/Vol]51 mg/dLCritically dje64-633Dhj [facility] SystemComment on above:Result Comment: Follow ProtocolPerformed By: #### 29929 ####NURSING GLUCOSE PTTFDNA78[address] [place] [address], [address] Glucose [Mass/Vol]74 mg/dL68 - 110 mg/dLTHE [facility] NETWORKROOHIOHEALTH PICKERINGTON [facility]IST [facility]OSPITAL SYSTEMInterpretation and review of laboratory resultsNoSt. Francis Hospital SYSTEMNEW ENGLAND REHABILITATION HOSPITAL AT DANVERSROOHIOHEALTH P[facility]ER[facility] SYSTEM Glucose [Mass/Vol]124 mg/nDJlkr75 - 110 mg/dLTHE [facility] NETWORKROOHIOHEALTH [facility] SYSTEM Interpretation and review of laboratory resultsAbnoWooster Community HospitalROOHIOHEALTH PICK[facility]INGTON [facility]ITAL SYSTEMGlucose [Mass/Vol]51 mg/dLCritically low68 - 110 mg/dLTHE [facility] NETWORKROOHIOHEALTH [facility] SYSTEMInterpretation and review of laboratory resultsAbnoSt. Francis Hospital SYSTEMNEW ENGLAND REHABILITATION HOSPITAL AT DANVERSROOHIOHEALTH P[facility]IST [facility]ITAL SYSTEMGlucose [Mass/Vol]51 mg/dLCritically low 68 - 110 mg/dLTHE [facility] NETWORKROOHIOHEALTH [facility] SYSTEMInterpretation and review of laboratory resultsAbnormOhio Valley Surgical Hospital SYSTEMNEW ENGLAND REHABILITATION HOSPITAL AT DANVERSROOHIOHEALTH P[facility]ITAL SYSTEMGlucose [Mass/Vol]85 mg/fARzzbsi12-907Rls [facility] SystemComment on above:Performed By: #### 48895 ####NURSING GLUCOSE LDJUDGI1168 [place], [place], [address]WHQUQOYS TOP TUBE, BLOODon 96-84-6464Dkxte TubeDoneTHE [facility] SYSTEMLaboratory - Chemistry and Chemistry - challengeon 06-76-1519Xvnypja [Mass/Vol]133 mg/lPSowc65 - 110 mg/dLTHE [facility] NETWORKROHEALTH SYSTEMMAGNESIUMon 80-50-9072Rqvfbdtuf [Mass/Vol]1.7 mg/dLLow1.9-2.7The [facility] SystemComment on above:Result Comment: Note updated reference ranges.Performed By: #### CH8, MG, PHOS ####MHS PATHOLOGY WBFXPKCMVE4672 [place], [place], [address]Magnesium [Mass/Vol]1.7 mg/dLLow1.9 - 2.7 mg/dLTHE [facility] SYSTEMNo Panel Informationon 32-38-1515Kwpyqqhwdwpstl and review of laboratory results AbnormalTHE [facility] SYSTEMTHE [facility] NETWORKROOHIOHEALTH PICKERINGTON METHODIST [facility]ITAL SYSTEMInterpretation and review of laboratory resultsNoUC Health SYSTEM Interpretation and review of laboratory resultsAbnoLutheran HospitalTHE [facility] NETWORKROHEALTH SYSTEMInterpretation and review of laboratory resultsAbnoLutheran HospitalTHE [facility] SYSTEMPHOSPHORUSon 71-89-0921Rjpikmoor [Mass/Vol]3.1 mg/dLNormal2.5-5.0The [facility] SystemComment on above:Result Comment: Note updated reference ranges.Performed By: #### CH8, MG, PHOS ####[facility] PATHOLOGY PMJKMQGUPA2037 [place], [address] Interpretation and review of laboratory resultsNoSt. Francis Hospital SYSTEM Phosphate [Mass/Vol]3.1 mg/dL2.5 - 5.0 mg/dLTHE [facility] SYSTEMProgress Notes on 90-13-4071Dwkcwefkvsssn Authentication Interface Message TextMD notified pt POCT glucose on one right hand is 409 and 203 on left hand; BMP sent.NormalThe [facility] SystemTranscription Authentication Interface Message TextNormTogus VA Medical Center SystemTranscription Authentication Interface Message TextNoUniversity [facility] SystemTranscription Authentication Interface Message TextNoUniversity [facility] SystemTranscription Authentication Interface Message TextNoUniversity Hospitals [facility] SystemSPECIMEN FOR SURGICAL PATHOrdered By: Aarti Reyes on [phone] ReportTHE G[facility]ION COMM[facility]OSPITAL SYSTEM Work Phone: Final Diagnosis w3ectJVwTHLxo5ozXOEvhWSzRcVgPjZvLhQqVggcqDBoWKokpvLyNWrzoSydIVJ7KRNnNE8trIqmlPa1 jCpiTXUchaU4hLUzIJyr c3jvZOC0n4egnnvoPQCmFYxfOv2vlJDwwYzfRyBfPSMsJJn7xR83BZFubN0meCFrNHz6MKSxhASaubWh MzXpFEBphQLtvEN1TJTy IF4sxbxfZLftZZizWPLfxoE1NOUzfXRlW4CiFRFgGW3jprrmNLA5ALuyOCZaXTE7DxLoDZErt2Bypvx9 MjBccGFyZFxwbGFpblxi MGAdCiJeBL3wYcAuIRuqWJZwd5LkPGLvRFXhL7Hsw76dZJCfvasuWGmcJSRoY7MmbTgfrkCbp4Ogi91b jGyyHj14GOiwl0h8xJQ7 wrJsg134nuMbUS2xH2Ill0sqOUQaESZdC4D2MZDjybTmJS7zAPAhy51lOKakvH3cgtzgE0OtKKAhiLYm EQsoIUgap2przLsbtE8u OPWxHAZeICWnBFCfu9Msw9WdjUKlVDzte7ksbnYtDRMwwfUALUSgiD9qZJ2qMJNtf8MtuVkevyUrdaLk dmlhYmxlIHdpdGggaGVt c5BnpSZxKVKnzgRap8Kne6GlgCLuNCgai9rinrPzPTZvkujaUNCtEnQMVoNmU10ph90xXWJhS3LaOVCj KANtW9Ywu33hTLKbikav BRfjRGFhM3CueGdgvyGqf4VubWQvA3YzSp34TNkie6m8pIEty41lLHI7gL4eKGObKXLgz2FaHFSpiVIf LAgqJqojoQ9ocSmflaVj okDjULOtUNVgb29iUztaHBPdKTVvZ3uoavShWiPtBAPeQ6Exp32nMDZxXXFzQJSvCN0mEADpghmtNCT3 s1vfbXEdMQQqqWGoWgLp IRYtNARxh4ytPERywRTnUdOtYtQyHhStZuczxAZbNCZxXcIoc6ebf517oBFdc8yySMIkImS5dDKgFNQt vCJiI671PAFzFZysq3ud k8FfRVWlbWZzw1W4IEGSjrrwkDh3iUdlM32gh8Y6FxtzP3rdJXLeYAPgO4SoXF9hGWJcHtk5ODJ2RTH3 PVMzRXm0PKvgRBQeBSCq Yyl6OKt3GFrdagGkVMeuapTocvEeVct9CMDtY050UQD3mEkau6ygGZV2PXIdEFHwQfWnCz2wnNDvV875 YYRxDGGRQVGbvOk8ITCt woYpfqJoyOCGa767Y677c1krNDGqmaXorOfPmqikp0kkJ008PBQknBUyynJzAoFiFULavYQetPQ2KOAb ME6yavwlEUknHCbhCPYp zgS1ABSknOAeQ2XxUGOzGR6rotagVTY9VFjoOGVjOJR1ImUqBGPol4Vtkfd4VyEwol9gpb93ZJM9s8Re wHffGQK0ASH8UlJgTb8t kUJsIAJvUJ5cTbKxfNCvPYZuwz65yEekPIhabmBypB7gNaOmRWBecZYjCSSfUY3iwTGnMPIysB5khxsm XHBnYnJkcmhlYWRccGdi brUiMo3nrPynTHJ8UEurN1jbrI4iUuX3EWyvO7fxbI7uPDq6HKmsyET2MEGdaU8nSJ0voumsx0alTYol NBytMPOnjdQ3isP8VBGj oIMaF7CwkW2vGBFeMU8okgfny3lmOUG5JIrpXAYwEUN9FsOjUOEqx5Bhvnm2HrMey7QgiISoXStpF33g u028ILBlzmIoF1okqKNf wwgftRFudxwxWKjdpnC8AKBkHSOxBUenQSBcWWViOgNdsRCbUtTeGuRppUnukAsoEPkkXmCzJHViIIyb H1flXwJjVeEhIklvGTNr cJiqmK8ySuPbQaRmMYemXV9aXZRyM7heuGBsRYGkMFNdF8pwHwJkiL5nkYucDGmbcoDbXXGdMST9xn5m aFYdwVr3KVJkL57wGWNB mQQdNsdeEATawTOaYBsotYGaCYNyNV2QHF5yTZArDlE7FdWzPdEgDPDujflcNRXpyWraaQ6iNmMtAyIi JMqhSR4gQMOxI4qhiTCb ZVLgEIQlN0ihQrWhxN2fgSzcKIziPcDzBjAfEWowBGsqW5WrhJombTK9zHK0ZUbxhJSdo53fWYcapPIu a49bjSA5IZZcmDziCCGm XRdxj3I6sPNjOYAwjKDneYokycVoBbV8aKHhQBNgpjVzp1HmG8xsBY8xmzkmBC2hFXmhefToheLdSDJv ZWQgdGhlIGZpbmFsIGRp TFjfp6VskhpcsfzzVJfauLHkgudnMEphwfAtLRqvtgbxVETnBHjxJ8lvExArFNQlnAcfRShqn0CnKGAr JQDkGkTskEFsMZEvbu78TXU ST. LAWRENCE HEALTH SYSTEMOPNET Technologies, Inc[employer] SYSTEM Work Phone: Gross Description f0gkhVNsCPSucKEyIMIpV3fqqbQhGNGqgHUhI1ZfucpvOHyyYY8tVB7kdMrkqNTunDWjOEUkUiFta5xy j348tYKwb6mmQJDCespw nIf3eJrnP07bi0N0QyxaJ95kySPaTJB8BUNnQOKehAMzOOIjOHL2ZNJzyLVrQ2nvXUWoPS3wokovIUnm ZKmsKHRjsHO6AVRqiOLv K8NhIOTgGJogAZSdktp3KkJzAv9hwJZxlAzsMXniOBCvMWUqCGdmRYAoXnOjMQItNG9oHeJmfDoyzGBp s23sQJNidjLuPAYGwMFp wYFtr8ftgCMpMYAmjxkgNNHtILkhEBWqGRNfnLJtCWkyYBVdK0OfooZbKBDeymPzoPTnshBgrkJwY41h dGFpbmVyLCBsYWJlbGVk LTppiZjytSpvZKZxhQhjvxHcnqGbCB3kCUJeKXYzUQBfL8IyQWQaJ18zZTKsnA6wBEMyID5ahwjcWTPd vcRpKYYnVDtqECOny7Ff Lv1uEUkxULVbZZKutXNkFYEhcpXon7IrVH7qZBKdQNJbA66fviPxr7Dhy94ieVwfZp37KNecwVQci7Wq aN0xTWRbLGWcACldCDwa wju4zKUvVL6sEf86SFJtYAjbLCJkahY7vLPgcnSeO7HzYUBRyKOds4G5WUJuz9OwWrSgCCFuMxZ3bZMy Lr89ZIyiiMRgF5MudY24 CF3iTFQMnQOnfODwt5YgpYUwoIVqUREpOGIzlhMmctGphh55QH9mLI6bHVTaBY87PLIsLPAnKCZfwSYg TETkw79iaUYaKA4ivcWb MHkfYdQmbeQgCXsrULhoEL99eFWlHMPstM7kXZEfMOWsOPScJZCxt15bqLrjMKLuoYFdXIHvW2Lcj93b jAXnY6tqEGJkRCJsXiJh qCBiif1dOSAvMABvutTpfgTdAHX4kK8jWC3qfxqojn3dWNYexkeeIOUrQ1NccJltbmD2LIHzVeWpjtHf UX04DSEdjsImwACeUHIf hyRmTYAsHWCYzOKygXFiAIUjX7Otp87mnYJiG5xlSGqkZZfviKZwJZOVVr0qQPVsI17xCBTcVUOhR9Aa o22clNUeG5yhDGapUHgm AOBmFOUxGcMjD2KzpVpdkmIfm0TdCt39IJdaDXYtTZVqgoJcQSUiEQQsCLJWSJB7xL6igtUbDxNfeVH1 YXRlZCBhcmVhIHRvIHRo RUFnu4vogQV7EUvzBMnbNIQtX5dvAEsxZCWnpGTbNOXwevNAQyLTZZQ8hMUheJeyitQfQQLqBXJnX4Fs lP1lPxmkEZHmeQRrLKUy GVTgaPLhcX5meyFsadWdNBQoyJJmNDBrIbNjd4eziN7lq51oISDyyaPwdT9rsahtfULgKOuoXIU2lYLv IWSiWUZrLNDxDA60N7Ro skOkXEPqwgDeeTTemPMpcZUpTGMfplTiqbUfZgXrZcFGTFHaOVIsNLQeCfFlKYD9rQKlGBYcTKYqvMJo wQ5wjgOvj90liDG6axHr AiVohNzfQCAmE80acgUiy4RpNMvhngwpBCJox1OwFO2uCMZ4ggnvVlMgQNUivVTvdyLfHC2lfWmjEK1d MRHdRAPsPKOybwN3mRXt jeLxB0NiUXFmBEMkjIBid3NlIJJ0oqMjP5GgfCWumNvyugLiqHLeGUTqHUGpndO4lgHcaLFkk6IilFXx Zy7mXIZoeHLaGJMjl90f OzvbVDFxwTKrTIFhX1Bdf82bZvMpMUMkdAHoh7UoaBT2kZAvYPLesboxUWPzOBLSWV8rCNPze5qriLVg SJEdl8CdqDecucWnQIKk eH0rZDjzNNXmqmEuQYGgLyXzIQmpnNAlIUDlz0FxgPsxhhHhQAMiaE6pSZxjHMXwojWyPGUnMS2vZdYw JuQuN5YdeUepwyLqt5El YeDacW95sIdcd96lb4QdJh40LMsmQNdiQUMdW2eoRRgoKNRpeGAjWLLoC3EcpgCdUQk2BAtvIZIwpPSe XHBhcmRccGFyfQ==THE [employer] SYSTEM Work Phone: THE [employer] SYSTEM Work Phone: BASIC METABOLIC PANELon 44-90-1341Vblsn gap [Moles/Vol]10 mmol/RUchokm87-16Agf [facility] HospitalXeros SystemComment on above:Performed By: #### RADHIKA JAUREGUI PHOS ####[facility] PATHOLOGY MCENTDVMZI3858 [place], [address]Znfkvrr [Mass/Vol]8.0 mg/dLLow8.6-10.3The [facility] HospitalWorkCast SystemComment on above:Performed By: #### RADHIKA JAUREGUI PHOSangeetha ####[facility] PATHOLOGY WTCPGYUWMF5452 [place], [address]Twuhlvpy [Moles/Vol]109 mmol/QWvpp50-598Kge [facility] HospitalXeros SystemComment on above:Performed By: #### MG, CH8, PHOS ####[facility] PATHOLOGY FHURZTUKOP0303 [place], [address]LX3 [Moles/Vol]29 mmol/PPhuwbt48-46Buy [facility] HospitalHealth SystemComment on above:Performed By: #### RADHIKA JAUREGUI, PHOS ####[facility] PATHOLOGY NUFCQWMIZN8112 [place], [address]Hgnbccnsls [Mass/Vol] 0.49 mg/dLLow0.60-1.20The [facility]Pro[facility]ant Hospital SystemComment on above:Performed By: #### RADHIKA JAUREGUI, PHOS ####[facility] PATHOLOGY RESQQBWUIK1370 [place], [address]BRVRWOCUH GFR (CKD-EPI)110 mL/min/1.73sqmNormal>=60The [facility] SystemComment on above:Result Comment: 2020 CKD EPI [...] Inclusion of Race in Diagnosing Kidney Disease. [place] Journal of Kidney Diseases 2021;79(2):268-88.e1.2. N Engl J Med 1 Vol. 385 Issue 19 Pages 7325-9425Performed By: #### RADHIKA JAUREGUI, VENKATS ####[facility] PATHOLOGY LNZFYWEJWB0096 [place], [address]Gaulauk [Mass/Vol]97 mg/kRJmjblq65-683Oht [facility] SystemComment on above:Performed By: #### RADHIKA JAUREGUI, PHOS ####[facility] PATHOLOGY DHQEFAWMHW4700 [place], [address]Ybipcjehh [Moles/Vol]3.7 mmol/LNormal3.5-5.0The [facility] SystemComment on above:Performed By: #### RADHIKA JAUREGUI, PHOS ####[facility] PATHOLOGY NVTJLSASKR1947 [place], [address]Rgdakw [Moles/Vol]144 mmol/TSpfqav718-884Sus [facility] SystemComment on above: Performed By: #### RADHIKA JAUREGUI, PHOS ####[facility] PATHOLOGY LJLBCIEMLR1332 [place], [address]Wzkb nitrogen [Mass/Vol]15 mg/dLNormal7-25The [facility] SystemComment on above:Performed By: #### RADHIKA JAUREGUI, PHOS ####[facility] PATHOLOGY ZFAPCRGXNQ8676 [place], [address]Ydsmx metabolic 2000 panelon 82-31-9098Imisb gap [Moles/Vol]10 mmol/L10 - 20THE [facility] SYSTEMCalcium [Mass/Vol]8.0 mg/dLLow8.6 - 10.3 mg/dLTHE [facility] SYSTEMChloride [Moles/Vol]109 mmol/LHigh98 - 107 mmol/LTHE [facility] SYSTEMCO2 [Moles/Vol]29 mmol/L21 - 31 mmol/LTHE [facility] SYSTEMCreatinine [Mass/Vol] 0.49 mg/dLLow0.60 - 1.20 mg/dLTHE [facility]RO[facility]ALTH SYSTEMGFR/1.73 sq M.predicted CKD- EPI (S/P/Bld) [Vol rate/Area]110- PINFTHE [facility]RO[facility]ALTH SYSTEMGlucose [Mass/Vol]97 mg/dL74 - 109 mg/dLTHE [facility] SYSTEMPotassium [Moles/Vol]3.7 mmol/L3.5 - 5.0 mmol/LTHE [facility] SYSTEMSodium [Moles/Vol]144 mmol/L136 - 145 mmol/LTHE [facility] SYSTEMUrea nitrogen [Mass/Vol]15 mg/dL7 - 25 mg/dLTHE [facility] SYSTEMCBC panel Auto (Bld)on 65-84-1364Jdjaevajzpo distribution width (RBC) [Ratio]15.3 %High11.5 - 14.5 %[facility] Work Phone: Hematocrit (Bld) [Volume fraction]25.2 %Low36.0 - 46.0 %[facility] Work Phone: Hemoglobin (Bld) [Mass/Vol]7.9 g/dLLow12.0 - 15.0 g/dL THE [employer] SYSTEM Work Phone: Interpretation and review of laboratory results AbnormalTHE [employer] SYSTEM Work Phone: MCH (RBC) [Entitic mass]28.2 pg26.0 - 34.0 pgTHE [employer] SYSTEM Work Phone: MCHC (RBC) [Mass/Vol]31.5 g/dLLow32.0 - 35.9 g/dLTHE [employer] SYSTEM Work Phone: MCV (RBC) [Entitic vol]89 fL80 - 100 fLTHE [employer] SYSTEM Work Phone: Platelet mean volume (Bld) [Entitic vol]8.6 fL7.5 - 11.2 fLTHE [employer] SYSTEM Work Phone: Platelets (Bld) [#/Vol]304 10*3/uL150 - 400 K/uLTHE [employer] SYSTEM Work Phone: RBC (Bld) [#/Vol]2.82 10*6/uLLowTHE [employer] SYSTEM Work Phone: WBC (Bld) [#/Vol]11.1 10*3/uL4.5 - 11.5 K/uLTHE [employer] SYSTEM Work Phone: THE [employer] SYSTEM Work Phone: COMPLETE BLOOD COUNTon 21-51-9104Rkvahspbikv distribution width (RBC) [Ratio]15.3 %High11.5-14.5The [employer] SystemComment on above:Performed By: #### CBC ####[facility] PATHOLOG[facility] BJTHKPXXCW[address] [place] [address], [address]Htvlbqwulg (Bld) [Volume fraction]25.2 %Low 36.0-46.0The [employer] SystemComment on above:Performed By: #### CBC ####[facility] PATHOLOGY ONMRKESJHG[address] [place] [address], [address]Jopfehfboj (Bld) [Mass/Vol]7.9 g/dLLow12.0-15.0The [facility] HospitalroHealth SystemComment on above: Performed By: #### CBC ####[facility] PATHOLOGY MFBORSOJRT[address] [place] [address], [address]WQS (RBC) [Entitic mass]28.2 rcIrzntt26.0-34.0The [facility] HospitalroHealth SystemComment on above:Performed By: #### CBC ####[facility] PATHOLOGY YJJEWUFLFO[address] [place] [address], [address]HSWM (RBC) [Mass/Vol] 31.5 g/dLLow32.0-35.9The [facility] HospitalroHealth SystemComment on above:Performed By: #### CBC ####[facility] PATHOLOGY EWBMIVCEXT[address] [place] [address], MCV (RBC) [Entitic vol]89 aRNcuetr59-490Ljv [facility] HospitalHealth SystemComment on above: Performed By: #### CBC ####[facility] PATHOLOGY VLQHTXBXKL[address] [place] [address], [address]Wisdudsg mean volume (Bld) [Entitic vol]8.6 fL Normal7.5-11.2The [facility] HospitalHealth SystemComment on above:Performed By: #### CBC ####[facility] PATHOLOGY BOQTHCBFJU[address] [place] [address], Platelets (Bld) [#/Vol]304 10*3/zAVomsgd406-832Eev [facility] HospitalroHealth SystemComment on above:Performed By: #### CBC ####[facility] PATHOLOGY VWVELQXLRA[address] [place] [address], [address]WUY (Bld) [#/Vol]2.82 10*6/uLLow4.00-5.20The [facility] HospitalHealth SystemComment on above:Performed By: #### CBC ####[facility] PATHOLOGY HCZTCAXPUS[address] [place] [address], [address]CSN (Bld) [#/Vol]11.1 10*3/uLNormal4.5-11.5The [facility] HospitalroHealth SystemComment on above:Performed By: #### CBC ####[facility] PATHOLOGY GYDGYUSYSC9529 [place], [place], CREATININE, BODY FLUIDon 09-28-3043Skxaobapth [Mass/Vol]0.40 mg/dLNoUniversity Hospitals Elyria Medical Center SystemComment on above:Result Comment: This test was developed, and its performance characteristics determined by the Department of Pathology of The [facility]. It has not been cleared or approved by the FDA. This test is used for clinical purposes only.Performed By: #### CRTF ####S PATHOLOGY GEFUZAGPCW4022 [place], [address]Alyokwkbdq (Body fld) [Mass/Vol]0.40 mg/dLTHE [facility] SYSTEMNEW ENGLAND REHABIL[facility]ATION HOSPITAL AT DANVERSROOHIOHEALTH PICKERINGTON [facility] SYSTEMCare Plan Noteon 58-06-9711Qhqqifkbpllcl Authentication Interface Message TextNoUniversity Hospitals Elyria Medical Center SystemConsultson [phone] Authentication Interface Message TextNoUniversity Hospitals Elyria [facility] Center SystemTranscription Authentication Interface Message TextNoUniversity Hospitals Elyria Medical Center SystemGLUCOSE, FINGERSTICK-IN OFFICEon 71-68-2786Nteppap [Mass/Vol]85 mg/dL68 - 110 mg/dLTHE [facility] NETWORKROHEALTH SYSTEM Interpretation and review of laboratory resultsNormCarilion New River Valley Medical CenterROOHIOHEALTH PICKERINGTON METHODIST HOSPITAL SYSTEMTHE [facility]ALTH SYSTEMGlucose [Mass/Vol]189 mg/jQQwrk08-023Xwc [facility] Hospitalro[facility] System Comment on above:Performed By: #### [id number] ####NURSING GLUCOSE QSKVUFP4095 [place], [place], [address]Amrmstz [Mass/Vol]189 mg/uWSsgw37 - 110 mg/dLTHE METRO[facility]ALTH SYSTEMInterpretation and review of laboratory results AbnormalTHE [facility] NETWORKROHEALTH SYSTEMTHE METRO[facility]ALTH SYSTEMGlucose [Mass/Vol]116 mg/dL Vwcw87-227Tao [facility] HospitalroHealth SystemComment on above:Result Comment: Notified ALISTAIR KEY MDPerformed By: #### [id number] ####NURSING GLUCOSE VGPCTVU5309 [place], [place], [address]Jbrpcrd [Mass/Vol]116 mg/aJOxpn07 - 110 mg/dLTHE [facility] NETWORKROHEALTH SYSTEMInterpretation and review of laboratory resultsAbnormCarilion New River Valley Medical CenterROHEALTH SYSTEMTHE METROHEALTH SYSTEMGlucose [Mass/Vol]75 mg/tJIunqua34-726 The [facility] SystemComment on above:Performed By: #### [id number] ####NURSING GLUCOSE SSJONWS[address] [place] [address], [address]Chezpwl [Mass/Vol]75 mg/dL68 - 110 mg/dLTHE [facility] NETWORKROOHIOHEALTH PICK[facility]ITAL SYSTEMInterpretation and review of laboratory resultsNormalTHE [facility] SYSTEMTHE [facility] NETWORKROOHIOHEALTH PICKER[facility]ITAL SYSTEMGlucose [Mass/Vol]177 mg/pNKagt71-096Ygq [facility] SystemComment on above:Performed By: #### [id number] ####NURSING GLUCOSE ORRQMNC[address] [place] [address], [address]SIQUBEEVLhk 49-60-0140Gnrlqxwep [Mass/Vol]1.8 mg/dLLow1.9-2.7The [facility] SystemComment on above:Result Comment: Note updated reference ranges.Performed By: #### MGRADHIKA, PHOSangeetha ####[facility] PATHOLOGY CFFHFOUXXM[address] [place] [address], 44 [address]1997Magnesium [Mass/Vol]1.8 mg/dLLow1.9 - 2.7 mg/dLTHE [facility] SYSTEMNo Panel Informationon 96-62-4861Ojgzyihvjwsraj and review of laboratory results AbnormalTHE [facility] SYSTEMTHE [facility] NETWORKROOHIOHEALTH PICKERINGTON METHODIST HOSPITAL SYSTEMPHOSPHORUSon 07-02-2023 Phosphate [Mass/Vol]3.6 mg/dLNormal2.5-5.0The [facility] SystemComment on above:Result Comment: Note updated reference ranges.Performed By: #### MG, CH8, PHOS ####[facility] PATHOLOGY SJPQMVUXYR[address] [place] [address], [address] Interpretation and review of laboratory resultsNormOhio Valley Surgical Hospital SYSTEM Phosphate [Mass/Vol]3.6 mg/dL2.5 - 5.0 mg/dLTHE [facility] SYSTEMProcedureson 46-44-0711Rxyakuhpnwuem Authentication Interface Message TextNormTogus [facility] SystemProgress Noteson 22-57-9804Kibwyotkaipzj Authentication Interface Message TextNormTogus [facility] SystemTranscription Authentication Interface Message TextNormTogus [facility] SystemTranscription Authentication Interface Message TextNoUniversity Hospitals E[facility] SystemTranscription Authentication Interface Message TextNormalThe [facility] HospitalXeros SystemTranscription Authentication Interface Message TextNormUniversity Hospitals Geneva Medical Centere [facility] HospitalroXeros SystemXR SKULL PA+LATERAL 2 VIEWSon 46-74-0776IX SKULL PA+LATERAL 2 VIEWSNormalThe Huntington HospitalroXeros SystemXR Skull PA and Right lateral and Left lateralon 65-51-0553VUKOYFXMBKQQ [facility]640 [facility] SYSTEM Work Phone: Radiology Study observation (narrative)THE [employer] SYSTEM Work Phone: XR Skull PA and Right lateral and Left lateralOrdered By: Myrna [place] on 45-04-2268PPN [facility]640 [facility] SYSTEM Work Phone: ANTI FXA-LMW HEPARINon 20-43-9700VFIK FXA-LMW HEPARIN ASSAY0.38 IU/mLNormalThe [facility] SystemComment on above:Order Comment: The recommended therapeutic range for treatment of thrombosis with Low Molecular Weight Heparin is 0.5 - 1.0 IU/mLThe recommended range for VTE prophylaxis with Low Molecular Weight Heparin is 0.2 - 0.4 IU/mL.Performed By: #### JOAN ####[facility] PATHOLOGY TKVOZDTFFX[address] [place] [address], [address]HEU Heparin Chromogenic method Qn (PPP)0.38IU/mLTHE [facility] NETWORKROOHIOHEALTH PICKERINGTON [facility]IST [facility]OSPITAL SYSTEMTHE [facility] NETWORKROHEALTH SYSTEM THE [facility] NETWORKROOPNET Technologies, Inc. SYSTEMBASIC METABOLIC PANELon 92-85-9171Nwdgg gap [Moles/Vol]15 mmol/EMdmyzo53-02Rjy [facility] SystemComment on above:Performed By: #### CH8 ####S PATHOLOGY AWMSXFQQGG6476 [place], [place], Calcium [Mass/Vol]8.0 mg/dLLow8.6-10.3The [facility] SystemComment on above: Performed By: #### CH8 ####[facility] PATHOLOGY HZSTDNNEAW9690 [place], [address]Cjspylvo [Moles/Vol]104 mmol/RBshzjt27-138Dbf [facility] SystemComment on above:Performed By: #### CH8 ####S PATHOLOGY RFNMLNMUDW[address] [place] [address], [address]UO0 [Moles/Vol]28 mmol/SRiguqq76-96Hil [facility] HospitalroHealth SystemComment on above:Performed By: #### CH8 ####S PATHOLOGY XNRFNRIKVB3020 [place], [place], Creatinine [Mass/Vol]0.45 mg/dLLow0.60-1.20The [facility] HospitalroHealth SystemComment on above:Performed By: #### CH8 ####[facility] PATHOLOGY YODANUEJBN8145 [place], [address]LTNELZIQT GFR (CKD-EPI)112 mL/min/1.73sqmNormal >=60The [facility] SystemComment on above:Result Comment: 2020 CKD EPI [...] Inclusion of Race in Diagnosing Kidney Disease. [place] Journal of Kidney Diseases 2021;79(2):26 8-88.e1.2. N Engl J Med 1 Vol. 385 Issue 19 Pages 2421-5284Performed By: #### CH8 ####[facility] PATHOLOGY LJMZFVUXQA0884 [place], Glucose [Mass/Vol]158 mg/hOIofq67-192Ate [facility] HospitalroSelect Medical [facility] SystemComment on above: Performed By: #### CH8 ####[facility] PATHOLOGY MZIAFLEERG6833 [place], [address]Ppdojiwir [Moles/Vol]3.5 mmol/LNormal3.5-5.0The [facility] HospitalroSelect Medical Specialty [facility] SystemComment on above:Performed By: #### CH8 ####S PATHOLOGY IOGEXRCYUT7388 [place], [address]Ajblvb [Moles/Vol]143 mmol/LCyyvqo377-291Cpz [facility] HospitalroHealth SystemComment on above:Performed By: #### CH8 ####S PATHOLOGY OLSTPVMVFO5311 [place], [address]Jeuq nitrogen [Mass/Vol]14 mg/dLNormal7-25The [facility] SystemComment on above: Performed By: #### RADHIKA ####S PATHOLOGY IWQTAETBHA[address] [place] [address], [address]Nyjhb gap [Moles/Vol]10 mmol/VOgotzp89-90Ycb [facility] SystemComment on above:Performed By: #### MG GARRIDO PHOS ####S PATHOLOGY MZEGLVPAVO6323 [place], [address]Ajwmybl [Mass/Vol]8.1 mg/dLLow8.6-10.3The [facility] SystemComment on above:Performed By: #### MG GARRIDO PHOS ####S PATHOLOGY MURCFTEYXK7692 [place], [address]Qxznmrlo [Moles/Vol]106 mmol/OTnwjvd32-386Wdg [facility] HospitalroHealth SystemComment on above:Performed By: #### MG GARRIDO PHOS ####S PATHOLOGY BXSKJANKTP2430 [place], [address]UH6 [Moles/Vol]31 mmol/FCwetyz83-97Qdc [facility] SystemComment on above:Performed By: #### MG GARRIDO PHOS ####S PATHOLOGY MGOAYXMMOZ8475 [place], [address]Uehjnbymsp [Mass/Vol]0.44 mg/dLLow0.60-1.20The [facility] HospitalroHealth SystemComment on above:Performed By: #### MG GARRIDO PHOS ####S PATHOLOGY LCEUHTPIKO8607 [place], [address]ZGROUHTCN GFR (CKD-EPI)113 mL/min/1.73sqmNormal>=60The [facility] HospitalroHealth SystemComment on above: Result Comment: 2020 CKD [...] Inclusion of Race in Diagnosing Kidney Disease. [place] Journal of Kidney Diseases 202;79(2):268-88.e1.2. N Engl J Med 1 Vol. 385 Issue 19 Pages 8346-4697Performed By: #### MG RADHIKA, BILL ####[facility] PATHOLOGY FJMVCLKZUH3779 [place], [address]Janqxcq [Mass/Vol]136 mg/zLAnfj53-955Soe [facility] SystemComment on above:Performed By: #### MG RADHIKA, BILL ####[facility] PATHOLOGY SLPSVCYBDL1050 [place], [place], [address] Potassium [Moles/Vol]2.9 mmol/LLow3.5-5.0The [facility] SystemComment on above:Performed By: #### MG RADHIKA, BILL ####[facility] PATHOLOGY XCFFRSBCTM7255 [place], [address]Wxdphi [Moles/Vol]144 mmol/LNormal 136-145The [facility] SystemComment on above:Performed By: #### MG RADHIKA, PHOS ####[facility] PATHOLOGY YYYUMQHIPN6415 [place], [address]Zlzw nitrogen [Mass/Vol]14 mg/dLNormal7-25The [facility] SystemComment on above: Performed By: #### MG RADHIKA, VENKATS ####[facility] PATHOLOGY OWGBHRLOTS3057 [place], [address]Ghbeq metabolic 2000 panelon 67-02-4270Sregt gap [Moles/Vol]15 mmol/L10 - 20THE METRO[facility]ALTH SYSTEMCalcium [Mass/Vol]8.0 mg/dLLow 8.6 - 10.3 mg/dLTHE [facility]RO[facility]ALTH SYSTEMChloride [Moles/Vol]104 mmol/L98 - 107 mmol/LTHE [facility]RO[facility]ALTH SYSTEMCO2 [Moles/Vol]28 mmol/L21 - 31 mmol/LTHE [facility] SYSTEMCreatinine [Mass/Vol]0.45 mg/dLLow0.60 - 1.20 mg/dLTHE METRO[facility]ALTH SYSTEMGFR/1.73 sq M.predicted CKD-EPI (S/P/Bld) [Vol rate/Area]112- PINFTHE METRO[facility]ALTH SYSTEMGlucose [Mass/Vol]158 mg/oVJofk55 - 109 mg/dLTHE [facility] SYSTEMInterpretation and review of laboratory resultsAbAngel Medical Center METROHEALTH SYSTEMPotassium [Moles/Vol]3.5 mmol/L3.5 - 5.0 mmol/LTHE [...] [Vol rate/Area] 113- PINFTHE [facility]ALTH SYSTEMGlucose [Mass/Vol]136 mg/yOIdqb67 - 109 mg/dLTHE [facility] SYSTEMInterpretation and review of laboratory resultsAbAngel Medical Center METROHEALTH SYSTEMPotassium [Moles/Vol]2.9 mmol/LLow3.5 - 5.0 mmol/LTHE [facility] SYSTEMSodium [Moles/Vol]144 mmol/L136 - 145 mmol/LTHE [facility] SYSTEMUrea nitrogen [Mass/Vol]14 mg/dL7 - 25 mg/dLTHE [facility]RO[facility]ALTH SYSTEMCBC panel Auto (Bld)on 22-40-7289Utivlnxnnip distribution width (RBC) [Ratio]15.4 % High11.5 - 14.5 %THE METROHEALTH SYSTEMHematocrit (Bld) [Volume fraction]24.2 % Low36.0 - 46.0 %THE [facility]ALTH SYSTEMHemoglobin (Bld) [Mass/Vol]8.0 g/dLLow12.0 - 15.0 g/dLTHE [facility] NETWORKROOHIOHEALTH PICKERINGTON METHODIST [facility]OSPITAL SYSTEMInterpretation and review of laboratory resultsAbnormalTHE WILSON STREET HOSPITALMCH (RBC) [Entitic mass]29.6 pg26.0 - 34.0 pgTHE [facility] NETWORKROOHIOHEALTH PICKERINGTON METHODIST HOSPITAL SYSTEMMCHC (RBC) [Mass/Vol]33.1 g/dL32.0 - 35.9 g/dLTHE W[address]RE[address] HOSPITALMCV (RBC) [Entitic vol]90 fL80 - 100 fLTUNIVERSITY HOSPITALROOHIOHEALTH PICKERINGTON [facility]IST [facility]ITAL SYSTEM Platelet mean volume (Bld) [Entitic vol]9.3 fL7.5 - 11.2 fLTUNIVERSITY HOSPITALROOHIOHEALTH PICKERINGTON METHODIST HOSPITAL SYSTEMPlatelets (Bld) [#/Vol]185 10*3/uL150 - 400 K/uLTHE [facility] NETWORKROOHIOHEALTH PICKERINGTON METHODIST HOSPITAL SYSTEMRBC (Bld) [#/Vol]2.70 10*6/uLLowTHE [facility] NETWORKROOHIOHEALTH PICKERINGTON METHODIST HOSPITAL SYSTEMWBC (Bld) [#/Vol]11.4 10*3/uL 4.5 - 11.5 K/uLTHE [facility] NETWORKROOHIOHEALTH PICKERINGTON METHODIST HOSPITAL SYSTEMTHE [facility] SYSTEMCOMPLETE BLOOD COUNT on 56-60-2014Dyckixjenoo distribution width (RBC) [Ratio]15.4 %High11.5-14.5The [facility] SystemComment on above:Performed By: #### CBC ####[facility] PATHOLOGY YREXZTUCUG[address] [place] [address], [address]Kfzrrfxtgq (Bld) [Volume fraction]24.2 %Low36.0-46.0[facility] SystemComment on above: Performed By: #### CBC ####S PATHOLOGY [address] [place] [address], [phone] (Bld) [Mass/Vol]8.0 g/dLLow12.0-15.0[facility] SystemComment on above:Performed By: #### CBC ####S PATHOLOGY [address] [place] [address], [phone] (RBC) [Entitic mass]29.6 obMhmwaf92.0-34.0[facility] SystemComment on above:Performed By: #### CBC ####S PATHOLOGY [address]AEZNT[address] [place] [address], [phone] (RBC) [Mass/Vol]33.1 g/iCVuqzci97.0-35.9[facility] Comment on above:Performed By: #### CBC ####[facility] PATHOLOGY EDIRVDHBFR[address] [place] [address], [phone] (RBC) [Entitic vol]90 fLNormal 80-100The [facility] SystemComment on above:Performed By: #### CBC ####[facility] PATHOLOGY [address]URTNS[address] [place] [address], [phone] mean volume (Bld) [Entitic vol]9.3 fLNormal7.5-11.2The [facility] SystemComment on above:Performed By: #### CBC ####[facility] PATHOLOGY VHAABCHKGO[address] [place] [address], [phone] (Bld) [#/Vol]185 10*3/eBBoraqd485-548Psb [facility] SystemComment on above:Performed By: #### CBC ####[facility] PATHOLOGY YKHLJSUILD[address] [place] [address], [phone] (Bld) [#/Vol]2.70 10*6/uLLow4.00-5.20The [facility]ro[facility] SystemComment on above:Performed By: #### CBC ####[facility] PATHOLOGY M[address]KWPATTA[address] [place] [address], [phone] (Bld) [#/Vol]11.4 10*3/uLNormal4.5-11.5The [facility] SystemComment on above: Performed By: #### CBC ####[facility] PATHOLOGY [address]QFOB[address] [place] [address], [phone] Plan Noteon 11-79-2457Frtwtytllstbw Authentication Interface Message TextNormalThe [facility] HospitalroHealth SystemConsultson [id number] Authentication Interface Message TextNormUniversity Hospitals Geneva Medical Centere [facility] HospitalroSelect [facility] SystemGLUCOSE, FINGERSTICK-IN OFFICEon [phone] [Mass/Vol] 177 mg/zAQuqp96 - 110 mg/dLTHE UNIVERSITY OF [facility] HEALTH NETWORKROHEALTH SYSTEMInterpretation and review of laboratory resultsAbnormCarilion New River Valley Medical CenterROHEALTH SYSTEMTHE METROHEALTH SYSTEMGlucose [Mass/Vol]298 mg/nWSujc61-280Cip [facility]ro[facility] SystemComment on above:Performed By: #### [id number] ####NURSING GLUCOSE KIADFJQ3119 [place], [place], [address]Gvngqbi [Mass/Vol]298 mg/zXKmay41 - 110 mg/dLTHE [facility] SYSTEM Interpretation and review of laboratory resultsAbnormCarilion New River Valley Medical CenterROHEALTH SYSTEMTHE METROHEALTH SYSTEMGlucose [Mass/Vol]227 mg/jDFknf99-815Rok [facility] Comment on above:Performed By: #### [id number] ####NURSING GLUCOSE DRTFCLO7052 [place], [place], [address]Bluqote [Mass/Vol]227 mg/tGFrmo60 - 110 mg/dLTHE UNIVERSITY OF VER[facility] HEALTH NETWORKROHEALTH SYSTEMInterpretation and review of laboratory results AbnormalTHE UNIVERSITY [facility] NETWORKROOHIOHEALTH PICKERINGTON METHODIST [facility]PITAL SYSTEMTHE [facility] NETWORKROHEALTH SYSTEMGlucose [Mass/Vol]117 mg/dL Tmfl21-259Mjb [facility] HospitalroHealth SystemComment on above:Performed By: #### [id number] ####NURSING GLUCOSE YLYXYPI0199 [place], [place], [address]Gctzphw [Mass/Vol]72 mg/zVUuguog27-809Tww [facility] HospitalroHealth SystemComment on above:Performed By: #### [id number] ####NURSING GLUCOSE OOALAIF[address] [place] [address], [address]Cdkjitr [Mass/Vol]117 mg/pIRczq52 - 110 mg/dLTHE [facility] NETWORKROHEALTH SYSTEM Interpretation and review of laboratory resultsAbnormCarilion New River Valley Medical CenterROHEALTH SYSTEMTHE METROHEALTH SYSTEMGlucose [Mass/Vol]72 mg/dL68 - 110 mg/dLTHE METROHEALTH SYSTEMInterpretation and review of laboratory resultsNormCarilion New River Valley Medical CenterROHEALTH SYSTEMTHE METROHEALTH SYSTEMGlucose [Mass/Vol]69 mg/eLWadoer80-450Xej [facility] HospitalroSelect [facility] SystemComment on above:Performed By: #### [id number] ####NURSING GLUCOSE CZAIIJN8059 [place], [place], [address]Nufhwml [Mass/Vol]69 mg/dL68 - 110 mg/dLTHE METROHEALTH SYSTEMInterpretation and review of laboratory results NormalTHE [facility] SYSTEMTHE METROHEALTH SYSTEMMAGNESIUMon 07-01-2023 Magnesium [Mass/Vol]1.9 mg/dLNormal1.9-2.7The [facility] SystemComment on above:Result Comment: Note updated reference ranges.Performed By: #### CH8, MG, PHOS ####[facility] PATHOLOGY UUXYMXBTJH5184 [place], [address] Magnesium [Mass/Vol]1.9 mg/dL1.9 - 2.7 mg/dLTHE [facility] SYSTEMNo Panel Informationon 43-93-6788Jagnhxvxvgpbkc and review of laboratory resultsNormMercy Health St. Elizabeth Boardman HospitalTHE [facility]OSPITAL SYSTEMPHOSPHORUSon 07-80-4805Mlobhvdcc [Mass/Vol]3.1 mg/dLNormal2.5-5.0The [facility] SystemComment on above:Result Comment: Note updated reference ranges.Performed By: #### RADHIKA, MG, PHOS ####[facility] PATHOLOGY FJJOFDHUEJ1889 [place], [address]Hwpmxqgjt [Mass/Vol]3.1 mg/dL2.5 - 5.0 mg/dLTHE [facility] SYSTEMProgress Noteson 54-51-1671Hoibtdzemhlza Authentication Interface Message TextNoUniversity Hospitals [facility] SystemTranscription Authentication Interface Message TextGuthrie Cort[facility] SystemTranscription Authentication Interface Message TextGuthrie [facility] Center SystemBASIC METABOLIC PANELon 30-84-0996Zrkyf gap [Moles/Vol]12 mmol/AFmjkgc25-46Dfx [facility] SystemComment on above:Performed By: #### PHOS, CH8, HEPATIC, MG ####[facility] PATHOLOGY HDDYEXCEES9776 [place], [address]Qceidqd [Mass/Vol]7.8 mg/dLLow8.6-10.3The [facility] Comment on above:Performed By: #### PHOS, CH8, HEPATIC, MG ####[facility] PATHOLOGY GSLKKSYBAX2521 [place], [address]Dogpalmr [Moles/Vol]112 mmol/WLzli67-047Frc [facility] SystemComment on above:Performed By: #### PHOSangeetha, CH8, HEPATIC, MG ####[facility] PATHOLOGY KHFYGEKRHB9003 [place], [address]SE9 [Moles/Vol]30 mmol/RWabgki05-65Oho [facility] SystemComment on above:Performed By: #### PHOSangeetha CH8, HEPATIC, MG ####[facility] PATHOLOGY VOODJNIIOP6573 [place], [address]Vcixcwqosy [Mass/Vol] 0.44 mg/dLLow0.60-1.20The [facility] SystemComment on above:Performed By: #### PHOSangeetha CH8, HEPATIC, MG ####[facility] PATHOLOGY YKYXIEAIVA0425 [place], [address]LOOXHEZPD GFR (CKD-EPI)113 mL/min/1.73sqmNormal >=60The [facility] SystemComment on above:Result Comment: 2020 CKD EPI [...] Inclusion of Race in Diagnosing Kidney Disease. [place] Journal of Kidney Diseases 2021;79(2):26 8-88.e1.2. N Engl J Med 1 Vol. 385 Issue 19 Pages 4953-9581Performed By: #### PHOS, CH8, HEPATIC, MG ####[facility] PATHOLOGY MLNROALTGG2179 [place], [address]Rrxnfws [Mass/Vol]128 mg/gFZjxr48-011Tla [facility] SystemComment on above:Performed By: #### PHOS, CH8, HEPATIC, MG ####[facility] PATHOLOGY GNVZEMIJHP1330 [place], [place], Potassium [Moles/Vol]3.1 mmol/LLow3.5-5.0The [facility] SystemComment on above: Performed By: #### PHOS, CH8, HEPATIC, MG ####[facility] PATHOLOGY QEOHIWBZTH2560 [place], [address]Zryjkk [Moles/Vol]151 mmol/LHigh 136-145The [facility] SystemComment on above:Performed By: #### HUBER KHAN8, HEPATIC, MG ####S PATHOLOGY PDRBAHVLMR4787 [place], [address]Igou nitrogen [Mass/Vol]15 mg/dLNormal7-25The [facility]ro[facility] System Comment on above:Performed By: #### RADHIKA KHAN, HEPATIC, MG ####S PATHOLOGY RVUZKLNJOA4570 [place], [address]Ftmui metabolic 2000 panelOrdered By: Eva Thomas on 51-14-0567Hocbb gap [Moles/Vol]12 mmol/L10 - 20THE METROHEALTH SYSTEMCalcium [Mass/Vol]7.8 mg/dLLow8.6 - 10.3 mg/dLTHE METRO[facility]ALTH SYSTEMChloride [Moles/Vol]112 mmol/LHigh98 - 107 mmol/LTHE METRO[facility]ALTH SYSTEMCO2 [Moles/Vol]30 mmol/L21 - 31 mmol/LTHE [facility] SYSTEM Creatinine [Mass/Vol]0.44 mg/dLLow0.60 - 1.20 mg/dLTHE [facility] GFR/1.73 sq M.predicted CKD-EPI (S/P/Bld) [Vol rate/Area]113- PINFTHE METROHEALTH SYSTEMGlucose [Mass/Vol]128 mg/wSWocm13 - 109 mg/dLTHE METRO[facility]ALTH SYSTEMInterpretation and review of laboratory resultsAbnormalTHE METROHEALTH SYSTEMPotassium [Moles/Vol]3.1 mmol/LLow3.5 - 5.0 mmol/LTHE [facility] Sodium [Moles/Vol]151 mmol/LZwgj989 - 145 mmol/LTHE METRO[facility]ALTH SYSTEMUrea nitrogen [Mass/Vol]15 mg/dL7 - 25 mg/dLTHE METROHEALTH SYSTEMTHE METROHEALTH SYSTEMCBC panel Auto (Bld)on 43-59-5599Mckqprdfged distribution width (RBC) [Ratio]16.3 %High11.5 - 14.5 %THE METROHEALTH SYSTEMHematocrit (Bld) [Volume fraction]24.4 %Low36.0 - 46.0 %THE [facility] NETWORKROHEALTH SYSTEMHemoglobin (Bld) [Mass/Vol] 8.1 g/dLLow12.0 - 15.0 g/dLTHE [facility] NETWORKROOHIOHEALTH PICKERINGTON METHODIST [facility]OSPITAL SYSTEMInterpretation and review of laboratory resultsAbnormalTHE [facility] SYSTEMMCH (RBC) [Entitic mass]29.7 pg 26.0 - 34.0 pgTHE METROHEALTH SYSTEMMCHC (RBC) [Mass/Vol]33.0 g/dL32.0 - 35.9 g/dLTHE METROOHIOHEALTH PICKERINGTON METHODIST HOSPITAL SYSTEMMCV (RBC) [Entitic vol]90 fL80 - 100 fLTHE METROHEALTH SYSTEMPlatelet mean volume (Bld) [Entitic vol]8.9 fL7.5 - 11.2 fLTHE METROHEALTH SYSTEMPlatelets (Bld) [#/Vol]150 10*3/uL150 - 400 K/uLTHE METROHEALTH SYSTEMRBC (Bld) [#/Vol]2.71 10*6/uLLowTHE METROHEALTH SYSTEMWBC (Bld) [#/Vol]10.3 10*3/uL 4.5 - 11.5 K/uLTHE METROHEALTH SYSTEMTHE [facility] NETWORKROOHIOHEALTH PICKERINGTON METHODIST HOSPITAL SYSTEMCOMPLETE BLOOD COUNT on 81-65-6099Nesayfoxjbf distribution width (RBC) [Ratio]16.3 %High11.5-14.5The [facility] HospitalroHealth SystemComment on above:Performed By: #### CBC ####S PATHOLOGY RVIDNRKPPK[address] [place] [address], [address]Aiwghwbmpp (Bld) [Volume fraction]24.4 %Low36.0-46.0The [facility] SystemComment on above: Performed By: #### CBC ####[facility] PATHOLOGY ERBDAERZVP9789 [place], [address]Hhiusxielm (Bld) [Mass/Vol]8.1 g/dLLow12.0-15.0The [facility] SystemComment on above:Performed By: #### CBC ####[facility] PATHOLOGY SLYFKIIQHI[address] [place] [address], [address]FLB (RBC) [Entitic mass]29.7 dsIlndbr66.0-34.0The [facility] HospitalHealth SystemComment on above:Performed By: #### CBC ####[facility] PATHOLOGY LJWTFHBWEZ8322 [place], [address]LLUO (RBC) [Mass/Vol]33.0 g/oMOaiigx69.0-35.9The [facility] System Comment on above:Performed By: #### CBC ####[facility] PATHOLOGY EIPWRKKFUS[address] [place] [address], [address]EEA (RBC) [Entitic vol]90 fLNormal 80-100The [facility] HospitalHealth SystemComment on above:Performed By: #### CBC ####[facility] PATHOLOGY UDHROFCGME[address] [place] [address], [address]Wvgkptsx mean volume (Bld) [Entitic vol]8.9 fLNormal7.5-11.2The [facility] HospitalHealth SystemComment on above:Performed By: #### CBC ####[facility] PATHOLOGY RMPUMFHLEM[address] [place] [address], [address]Clgddaort (Bld) [#/Vol]150 10*3/qAIavnrz105-340Jtc [facility] SystemComment on above:Performed By: #### CBC ####[facility] PATHOLOGY DFHRCRCEOH[address] [place] [address], [address]WAS (Bld) [#/Vol]2.71 10*6/uLLow4.00-5.20The [facility] SystemComment on above:Performed By: #### CBC ####[facility] PATHOLOGY YKFYGCMDCU[address] [place] [address], [address]FDC (Bld) [#/Vol]10.3 10*3/uLNormal4.5-11.5The [facility] SystemComment on above: Performed By: #### CBC ####[facility] PATHOLOGY UUCCKADAGK[address] [place] [address], [address]YCORGUL, FINGERSTICK-IN OFFICEon 04-85-9833Pmshhzv [Mass/Vol]250 mg/gOUrvi30-154Frq [facility] SystemComment on above:Performed By: #### [id number] ####NURSING GLUCOSE EVUGZDM[address] [place] [address], [address]Hdxqxux [Mass/Vol]250 mg/zWDrut48 - 110 mg/dLTHE [facility] NETWORKROHEALTH SYSTEM Interpretation and review of laboratory resultsAbnormCarilion New River Valley Medical CenterROOHIOHEALTH PICKERINGTON METHODIST HOSPITAL SYSTEMTHE METROHEALTH SYSTEMGlucose [Mass/Vol]199 mg/xSFfci15-749Mek [facility] HospitalroSelect [facility] System Comment on above:Performed By: #### [id number] ####NURSING GLUCOSE UNUJURH6149 [place], [place], [address]Qxtqdpw [Mass/Vol]199 mg/mTMgwl64 - 110 mg/dLTHE [facility] NETWORKROHEALTH SYSTEMInterpretation and review of laboratory results AbnormalTHE [facility] NETWORKROOHIOHEALTH PICKERINGTON METHODIST HOSPITAL SYSTEMTHE METROHEALTH SYSTEMGlucose [Mass/Vol]134 mg/dL Evuo33-041Yqv [facility] SystemComment on above:Performed By: #### [id number] ####NURSING GLUCOSE CHAZTML[address] [place] [address], [address]Hopuvgq [Mass/Vol]134 mg/rHVpyw62 - 110 mg/dLTHE [facility] NETWORKROOHIOHEALTH PICKERINGTON [facility]ITAL SYSTEMInterpretation and review of laboratory resultsAbnormOhioHealth Mansfield HospitalE [facility] HOSPITALTHE [facility] NETWORKROHEALTH SYSTEM Glucose [Mass/Vol]114 mg/lJGisz84-778Oek [facility] SystemComment on above: Performed By: #### [id number] ####NURSING GLUCOSE HZAARUQ[address] [place] [address], [address]Zmigipx [Mass/Vol]114 mg/dEOlyo38 - 110 mg/dLTHE [facility] NETWORKROOHIOHEALTH PICK[facility]INGTON [facility]IST [facility]ITAL SYSTEMInterpretation and review of laboratory resultsAbnormMercy Health St. Elizabeth Boardman HospitalTHE [facility] NETWORKROHEALTH SYSTEMGlucose [Mass/Vol]223 mg/oQBkyu65-201Koa [facility] SystemComment on above:Result Comment: Follow ProtocolPerformed By: #### [id number] ####NURSING GLUCOSE CWLSVEJ3020 [place], [place], [address]IIUHMJZ FUNCTION PANELon 51-85-4031Tnxgbjy [Mass/Vol]2.9 g/dLLow3.5-5.7The [facility] SystemComment on above:Order Comment: Note updated reference ranges. Performed By: #### PHOS, CH8, HEPATIC, MG ####[facility] PATHOLOGY RNFODHCFGR8750 [place], [address]EPC53 IU/WOrlwaf74-484Plo [facility] SystemComment on above:Order Comment: Note updated reference ranges.Performed By: #### PHOS, CH8, HEPATIC, MG ####[facility] PATHOLOGY MLFQWFNAOV[address] [place] [address], [address]NZI [Catalytic activity/Vol]12 U/LNormal7-52The [facility] SystemComment on above:Order Comment: Note updated reference ranges. Performed By: #### PHOS, CH8, HEPATIC, MG ####S PATHOLOGY HPJAQHANUV[address] [place] [address], [address]QXG [Catalytic activity/Vol]7 U/LLow 13-39The [facility] SystemComment on above:Order Comment: Note updated reference ranges.Performed By: #### PHOS, CH8, HEPATIC, MG ####S PATHOLOGY MBPFQLXIRR[address] [place] [address], [address]Tcyfkwfvb [Mass/Vol]1.5 mg/dLHigh0.3-1.0The [facility] HospitalHealth SystemComment on above:Order Comment: Note updated reference ranges.Performed By: #### PHOS, CH8, HEPATIC, MG ####S PATHOLOGY GAGQVZTTWW[address] [place] [address], Bilirubin.direct [Mass/Vol]0.31 mg/dLHigh0.03-0.18The [facility] SystemComment on above:Order Comment: Note updated reference ranges.Performed By: #### PHOS, CH8, HEPATIC, MG ####S PATHOLOGY KUNBRLBNCF[address] [place] [address], [address]Zlldnoe [Mass/Vol]4.9 g/dLLow6.0-8.3The [facility] HospitalHealth SystemComment on above:Order Comment: Note updated reference ranges.Performed By: #### PHOS, CH8, HEPATIC, MG ####[facility] PATHOLOGY JWNPKBEHYN[address] [place] [address], [address]Srbzmuo [Mass/Vol]2.9 g/dLLow3.5 - 5.7 g/dLTHE [facility] NETWORKROHEALTH SYSTEM ALP [Catalytic activity/Vol]60 U/LTHE [facility] NETWORKROHEALTH SYSTEMALT [Catalytic activity/Vol]12 U/LTHE METROHEALTH SYSTEMAST [Catalytic activity/Vol]7 U/LLowTHE [facility] SYSTEMBilirubin [Mass/Vol]1.5 mg/dLHigh0.3 - 1.0 mg/dLTHE [facility] SYSTEMBilirubin.direct [Mass/Vol]0.31 mg/dLHigh0.03 - 0.18 mg/dLTHE [facility] SYSTEMProtein [Mass/Vol]4.9 g/dLLow6.0 - 8.3 g/dLTHE [address] HOSPITALTHE [facility]OS[facility]ITAL SYSTEMLACTIC ACIDon 19-45-3427GN LACT0.7 mmol/LNormal 0.5-1.6The [facility] SystemComment on above:Performed By: #### LACT ####[facility] PATHOLOGY VICTKBLDAE[address] [place] [address], Interpretation and review of laboratory resultsNoLutheran Hospital Work Phone: Lactate [Moles/Vol]0.7 mmol/L0.5 - 1.6 mmol/LTHE [facility] Work Phone: [facility] Work Phone: MAGNESIUMon 40-54-4601Ociqtoxmf [Mass/Vol]1.7 mg/dLLow 1.9-2.7The [facility] SystemComment on above:Result Comment: Note updated reference ranges.Performed By: #### PHOS, CH8, HEPATIC, MG ####[facility] PATHOLOGY TQNFCWAYKZ[address] [place] [address], [address]Jlpmbpvyh [Mass/Vol]1.7 mg/dLLow1.9 - 2.7 mg/dLTHE [facility] SYSTEMNo Panel Informationon 06-30-2023 Interpretation and review of laboratory resultsAbnoLutheran HospitalTHE [facility]OSPITAL SYSTEMPHOSPHORUSon 66-40-7750Qlrmsionu [Mass/Vol]2.4 mg/dLLow 2.5-5.0The [facility] SystemComment on above:Result Comment: Note updated reference ranges.Performed By: #### PHOS, CH8, HEPATIC, MG ####[facility] PATHOLOGY UZDRVSNZKZ[address] [place] [address], [address]Gszdsydvh [Mass/Vol]2.4 mg/dLLow2.5 - 5.0 mg/dLTHE [facility] NETWORKROOHIOHEALTH PICKERINGTON METHODIST [facility]OSPITAL SYSTEMProgress Noteson 06-30-2023 Foundation [employer]ger Authentication Interface Message TextNoUniversity [facility] System Foundation Digger Authentication Interface Message TextNoUniversity [facility] System Foundation Digger Authentication Interface Message TextNoUniversity [facility] System Foundation Digger Authentication Interface Message TextGuthrie [facility] System ANTI FXA-LMW HEPARINon 51-64-7833OYIU FXA-LMW HEPARIN ASSAY0.17 IU/mLNormalThe [facility] SystemComment on above:Order Comment: The recommended therapeutic range for treatment of thrombosis with Low Molecular Weight Heparin is 0.5 - 1.0 IU/mLThe recommended range for VTE prophylaxis with Low Molecular Weight Hep rubén is 0.2 - 0.4 IU/mL.Performed By: #### JOAN ####[facility] PATHOLOGY AGSLYMGLJO[address] [place] [address], [address]BRI Heparin Chromogenic method Qn (PPP)0.17IU/mLTHE [facility] NETWORKROOHIOHEALTH PICKERINGTON METHODIST [facility]OSPITAL SYSTEMTHE [facility] NETWORKROOHIOHEALTH P[facility]ITAL SYSTEMTHE [facility] SYSTEM BASIC METABOLIC PANELon 55-83-3902Rmkge gap [Moles/Vol]16 mmol/RUfvzes49-57Yii [facility] SystemComment on above:Performed By: #### CH8 ####[facility] PATHOLOGY CPNGZMXZOB[address] [place] [address], [address]Rbsqkwa [Mass/Vol]8.0 mg/dLLow8.6-10.3The [facility] SystemComment on above:Performed By: #### CH8 ####[facility] PATHOLOGY ONUCCHQWUU83[address] [place] [address], Chloride [Moles/Vol]116 mmol/GKmwm13-081Vmv [facility] SystemComment on above: Performed By: #### CH8 ####[facility] PATHOLOGY YALTONIZHX[address] [place] [address], [address]FV3 [Moles/Vol]27 mmol/AHnyiip63-85Xcg [facility] SystemComment on above:Performed By: #### CH8 ####[facility] PATHOLOGY NMEPQTAICU[address] [place] [address], [address]Vytyzwzqtp [Mass/Vol]0.59 mg/dLLow 0.60-1.20The [facility] HospitalroHealth SystemComment on above:Performed By: #### CH8 ####[facility] PATHOLOGY VZOABMAPHQ4758 [place], [address]SITQZZSZU GFR (CKD-EPI)105 mL/min/1.73sqmNormal>=60The [facility] HospitalroHealth SystemComment on above: Result Comment: 2020 CKD [...] Inclusion of Race in Diagnosing Kidney Disease. [place] Journal of Kidney Diseases 2021;79(2):268-88.e1.2. N Engl J Med 1 Vol. 385 Issue 19 Pages 6091-4920Performed By: #### CH8 ####[facility] PATHOLOGY GPZVMTGEPH5690 [place], [address]Btehvsj [Mass/Vol]309 mg/nHUqyt40-886 The [facility] HospitalHealth SystemComment on above:Performed By: #### CH8 ####[facility] PATHOLOGY SQFTACAKSE7958 [place], [address]Xhcpkmazi [Moles/Vol] 5.8 mmol/LHigh3.5-5.0The [facility] HospitalroHealth SystemComment on above:Performed By: #### CH8 ####[facility] PATHOLOGY RVADWGENIV3978 [place], Sodium [Moles/Vol]153 mmol/BVton139-411Sua [facility] HospitalroHealth SystemComment on above: Performed By: #### CH8 ####[facility] PATHOLOGY ECGMMCYHRL0005 [place], [address]Oiua nitrogen [Mass/Vol]24 mg/dLNormal7-25The [facility] HospitalroHealth SystemComment on above:Performed By: #### CH8 ####[facility] PATHOLOGY ZXOSWLQDIB4963 [place], [address]Gqllx gap [Moles/Vol]12 mmol/ZPcxouj59-29Rpa [facility] HospitalroHealth SystemComment on above:Performed By: #### CH8, MG, TRIG, PHOS ####S PATHOLOGY QSZNXUFDOK9258 [place], [address]Jbsignj [Mass/Vol]8.4 mg/dLLow8.6-10.3The [facility] HospitalroHealth SystemComment on above:Performed By: #### CH8, MG, TRIG, PHOS ####[facility] PATHOLOGY ORBFHOPBFX6721 [place], [address]Nshdcazs [Moles/Vol]120 mmol/LHigh 98-107The [facility] HospitalroHealth SystemComment on above:Performed By: #### CH8, MG, TRIG, PHOS ####[facility] PATHOLOGY XZJTICCWUH4204 [place], [place], CO2 [Moles/Vol]25 mmol/OZzwvrk32-82Sun [facility] HospitalroHealth SystemComment on above: Performed By: #### CH8, MG, TRIG, PHOS ####S PATHOLOGY MSSDPXYMNK1640 [place], [address]Fowszqmvjm [Mass/Vol]0.70 mg/dLNormal 0.60-1.20The [facility] HospitalHealth SystemComment on above:Performed By: #### CH8, MG, TRIG, PHOS ####S PATHOLOGY NCUAEGFIGJ5034 [place], [address]CGOBABINQ GFR (CKD-EPI)101 mL/min/1.73sqmNormal>=60The [facility] SystemComment on above:Result Comment: 2020 CKD EPI [...] Inclusion of Race in Diagnosing Kidney Disease. [place] Journal of Kidney Diseases 202;79(2):268-88.e1.2. N Engl J Med 1 Vol. 385 Issue 19 Pages 1735-5962Performed By: #### HUBER8, MG, TRIG, PHOS ####[facility] PATHOLOGY JBQZANXZDM2052 [place], [address]Bnkrkwq [Mass/Vol]247 mg/fOKauq78-204Jtw [facility] HospitalroHealth SystemComment on above:Performed By: #### RADHIKA, MG, TRIG, PHOS ####[facility] PATHOLOGY VUATPYKOZS7356 [place], [address]Bjonknxsv [Moles/Vol]3.5 mmol/LNormal3.5-5.0The [facility] HospitalroHealth SystemComment on above:Performed By: #### RADHIKA, MG, TRIG, PHOS ####[facility] PATHOLOGY OEQQPLXQPC2366 [place], [address]Oivuhm [Moles/Vol]153 mmol/OJajt015-811Vta [facility] HospitalroSelect Medical Specialty [facility] SystemComment on above: Performed By: #### RADHIKA, MG, TRIG, PHOS ####[facility] PATHOLOGY YHGAZVPXRD0925 [place], [address]Hocz nitrogen [Mass/Vol]30 mg/dLHigh 7-25The [facility] HospitalroHealth SystemComment on above:Performed By: #### RADHIKA, MG, TRIG, PHOS ####[facility] PATHOLOGY CFQSDEAKOM9214 [place], [place], Basic metabolic 2000 panelOrdered By: River Amb[place] on 36-51-7200Pvhrc gap [Moles/Vol]16 mmol/L10 - 20THE METRO[facility]ALTH SYSTEMCalcium [Mass/Vol]8.0 mg/dLLow 8.6 - 10.3 mg/dLTHE [facility]RO[facility]ALTH SYSTEMChloride [Moles/Vol]116 mmol/LHigh98 - 107 mmol/LTHE [facility]RO[facility]ALTH SYSTEMCO2 [Moles/Vol]27 mmol/L21 - 31 mmol/LTHE [facility] SYSTEMCreatinine [Mass/Vol]0.59 mg/dLLow0.60 - 1.20 mg/dLTHE METROHEALTH SYSTEMGFR/1.73 sq M.predicted CKD-EPI (S/P/Bld) [Vol rate/Area]105- PINFTHE METROHEALTH SYSTEMGlucose [Mass/Vol]309 mg/rKAyrx95 - 109 mg/dLTHE [facility] SYSTEMInterpretation and review of laboratory resultsAbnormalTHE [facility]RO[facility]ALTH SYSTEMPotassium [Moles/Vol]5.8 mmol/LHigh3.5 - 5.0 mmol/LTHE [facility] SYSTEMSodium [Moles/Vol]153 mmol/RMrzz062 - 145 mmol/LTHE [facility]ALTH SYSTEMUrea nitrogen [Mass/Vol]24 mg/dL7 - 25 mg/dLTHE [facility]ALTH SYSTEMTHE METRO[facility]ALTH SYSTEMBasic metabolic 2000 panelon 54-42-5884Pupnc gap [Moles/Vol]12 mmol/L10 - 20THE [facility] SYSTEMCalcium [Mass/Vol]8.4 mg/dLLow 8.6 - 10.3 mg/dLTHE [facility] SYSTEMChloride [Moles/Vol]120 mmol/LHigh98 - 107 mmol/LTHE [facility] SYSTEMCO2 [Moles/Vol]25 mmol/L21 - 31 mmol/LTHE [facility] SYSTEMCreatinine [Mass/Vol]0.70 mg/dL0.60 - 1.20 mg/dLTHE [facility]RO[facility]ALTH SYSTEMGFR/1.73 sq M.predicted CKD-EPI (S/P/Bld) [Vol rate/Area]101- PINFTHE METRO[facility]ALTH SYSTEMGlucose [Mass/Vol]247 mg/fLQjfd07 - 109 mg/dLTHE [facility] SYSTEMPotassium [Moles/Vol]3.5 mmol/L3.5 - 5.0 mmol/LTHE [facility] SYSTEMSodium [Moles/Vol]153 mmol/ORolp819 - 145 mmol/LTHE [facility] SYSTEM Urea nitrogen [Mass/Vol]30 mg/dLHigh7 - 25 mg/dLTHE [facility]RO[facility]ALTH SYSTEMCBC panel Auto (Bld)on 91-22-2643Bawvodrftvp distribution width (RBC) [Ratio]16.4 %High 11.5 - 14.5 %THE METRO[facility]ALTH SYSTEMHematocrit (Bld) [Volume fraction]26.5 %Low 36.0 - 46.0 %THE [facility] SYSTEMHemoglobin (Bld) [Mass/Vol]9.0 g/dLLow12.0 - 15.0 g/dLTHE [facility]ALTH SYSTEMInterpretation and review of laboratory results AbnormalTHE METROHEALTH SYSTEMMCH (RBC) [Entitic mass]30.1 pg26.0 - 34.0 pgTHE [facility] NETWORKROOHIOHEALTH PICKERINGTON METHODIST HOSPITAL SYSTEMMCHC (RBC) [Mass/Vol]33.8 g/dL32.0 - 35.9 g/dLTHE [facility] NETWORKROOHIOHEALTH PICKERINGTON METHODIST HOSPITAL SYSTEMMCV (RBC) [Entitic vol]89 fL80 - 100 fLTHE [facility] NETWORKROHEALTH SYSTEMPlatelet mean volume (Bld) [Entitic vol]9.5 fL7.5 - 11.2 fLTHE METROHEALTH SYSTEMPlatelets (Bld) [#/Vol]149 10*3/zAVwe962 - 400 K/uLTHE UNIVERSITY OF [facility] NETWORKROOHIOHEALTH PICKER[facility] METHODIST HOSPITAL SYSTEMRBC (Bld) [#/Vol] 2.97 10*6/uLLowTHE UN[facility] NETWORKROHEALTH SYSTEMWBC (Bld) [#/Vol]10.6 10*3/uL4.5 - 11.5 K/uLTHE UN[facility]ERSITY [facility] NETWORKROOHIOHEALTH [facility]ITAL SYSTEMTHE [facility] SYSTEMCOMPLETE BLOOD COUNTon [id number] distribution width (RBC) [Ratio]16.4 %High11.5-14.5The [facility] SystemComment on above:Performed By: #### CBC ####S PATHOLOGY [id number] [place] [address], [id number] (Bld) [Volume fraction]26.5 %Low36.0-46.0The [facility] SystemComment on above: Performed By: #### CBC ####S PATHOLOGY [id number] [place], [id number] (Bld) [Mass/Vol]9.0 g/dLLow12.0-15.0The [facility] SystemComment on above:Performed By: #### CBC ####S PATHOLOGY [id number] [place], [id number] (RBC) [Entitic mass]30.1 mmAitono43.0-34.0The [facility] SystemComment on above:Performed By: #### CBC ####S PATHOLOGY [id number] [place] [address], [id number] (RBC) [Mass/Vol]33.8 g/tZOvsglt33.0-35.9[facility] Comment on above:Performed By: #### CBC ####[facility] PATHOLOGY PLXVIRPYZH7229 [place], [address]KUT (RBC) [Entitic vol]89 fLNormal 80-100The [facility] HospitalroHealth SystemComment on above:Performed By: #### CBC ####[facility] PATHOLOGY MIMMGUODUM[address] [place] [address], [address]Xcdcztgs mean volume (Bld) [Entitic vol]9.5 fLNormal7.5-11.2The [facility] HospitalroHealth SystemComment on above:Performed By: #### CBC ####[facility] PATHOLOGY KYIQZUEHRT[address] [place] [address], [address]Quycgmwwe (Bld) [#/Vol]149 10*3/fKAkq620-873Kgr [facility] HospitalHealth SystemComment on above:Performed By: #### CBC ####[facility] PATHOLOGY AYPJEXECJT[address] [place] [address], [address]CNY (Bld) [#/Vol]2.97 10*6/uLLow4.00-5.20The [facility] HospitalroHealth SystemComment on above:Performed By: #### CBC ####[facility] PATHOLOGY PGKKKRLVJT[address] [place] [address], [address]FWF (Bld) [#/Vol]10.6 10*3/uLNormal4.5-11.5The [facility] HospitalroHealth SystemComment on above: Performed By: #### CBC ####[facility] PATHOLOGY ZTOPRMJDQQ[address] [place] [address], [address]Vkylxjgrgk 50-28-1947Zjjdzrqeihspw Authentication Interface Message TextNormChildren's Hospital of Richmond at VCUroHealth SystemTranscription Authentication Interface Message TextNoAtrium Health Wake Forest BaptistroHealth SystemTranscription Authentication Interface Message TextNoAtrium Health Wake Forest BaptistroHealth SystemTranscription Authentication Interface Message TextNoAtrium Health Wake Forest BaptistroHealth SystemGLUCOSE, FINGERSTICK-IN OFFICE on 10-58-6278Xlanrqd [Mass/Vol]223 mg/rBRvpm76 - 110 mg/dLTHE [facility] NETWORKROHEALTH SYSTEM Interpretation and review of laboratory resultsAbnoSt. Francis Hospital SYSTEMTHE METROHEALTH SYSTEMGlucose [Mass/Vol]245 mg/pOMplo91-636Qte [facility] HospitalroSelect [facility] System Comment on above:Performed By: #### 00401 ####NURSING GLUCOSE LICJHXD[address] [place] [address], 390[address]Dijlbvq [Mass/Vol]245 mg/aIKxvy36 - 110 mg/dLTHE METROHEALTH SYSTEMInterpretation and review of laboratory results AbnormalTHE [facility] NETWORKROHEALTH SYSTEMTHE [facility] NETWORKROHEALTH SYSTEMGlucose [Mass/Vol]252 mg/dL Ppzj29-748Ays [facility] HospitalroSelect Medical Specialty [facility] SystemComment on above:Performed By: #### 19906 ####NURSING GLUCOSE VENKDVR[address] [place] [address], 55828Nfewvdn [Mass/Vol]252 mg/zLUrho62 - 110 mg/dLTHE [facility] NETWORKROOHIOHEALTH PICKER[facility] SYSTEMInterpretation and review of laboratory resultsAbnoLutheran HospitalTHE [facility] NETWORKROOHIOHEALTH [facility] SYSTEM Glucose [Mass/Vol]298 mg/eIOhqo79-690Tpx [facility] SystemComment on above: Result Comment: Follow ProtocolPerformed By: #### [id number] ####NURSING GLUCOSE VQSJSXD[address] [place] [address], 576[address]Gtaqniq [Mass/Vol]298 mg/dLHigh 68 - 110 mg/dLTHE [facility] NETWORKROOHIOHEALTH PICKERINGTON [facility]ITAL SYSTEMInterpretation and review of laboratory resultsAbnoLutheran HospitalTHE [facility] NETWORKROOHIOHEALTH P[facility]ER[facility]ITAL SYSTEMGlucose [Mass/Vol]296 mg/fXSuuy41-341Sbc [facility] SystemComment on above:Performed By: #### [id number] ####NURSING GLUCOSE UUSFOTE[address] [place] [address], 39669Lwwvzpx [Mass/Vol]296 mg/hCGwnr19 - 110 mg/dLTHE [facility] NETWORKROOHIOHEALTH [facility] SYSTEMInterpretation and review of laboratory resultsAbnoWooster Community HospitalROOHIOHEALTH P[facility]ER[facility] SYSTEM LACTIC ACIDon 62-93-1722OF LACT1.2 mmol/LNormal0.5-1.6The [facility] System Comment on above:Performed By: #### LACT ####[facility] PATHOLOGY MESNWTSPNY[address] [place] [address], [address]RWKBIL ACIDOrdered By: Lilly Swenson on 15-46-4597Zersrprmqgqjcd and review of laboratory resultsNoSt. Francis Hospital SYSTEMLactate [Moles/Vol]1.2 mmol/L0.5 - 1.6 mmol/LTHE [facility] SYSTEMTHE [facility] SYSTEMMAGNESIUMon 79-78-9407Ldtbdtgfr [Mass/Vol]1.9 mg/dL Normal1.9-2.7The [facility] SystemComment on above:Result Comment: Note updated reference ranges.Performed By: #### CH8, MG, TRIG, PHOS ####[facility] PATHOLOGY NKKICPLRCU9121 [place], [address]Tsglonkaratquy and review of laboratory resultsNoLutheran HospitalMagnesium [Mass/Vol]1.9 mg/dL1.9 - 2.7 mg/dLTHE WIL[facility] HOSPITALNo Panel Informationon 06-29-2023 Interpretation and review of laboratory resultsAbnoSelect Medical OhioHealth Rehabilitation HospitalPHOSPHORUSon 59-44-3053Wbydzmekl [Mass/Vol]2.3 mg/dLLow 2.5-5.0The [facility] SystemComment on above:Result Comment: Note updated reference ranges.Performed By: #### CH8, MG, TRIG, PHOS ####[facility] PATHOLOGY IUBLPOQQVR6392 [place], [address]Ryztwevdi [Mass/Vol]2.3 mg/dLLow2.5 - 5.0 mg/dLTHE WILSON STREET HOSPITALProgress Noteson 06-29-2023 Foundation [employer]ger Authentication Interface Message TextNo[facility] System Foundation [employer]ger Authentication Interface Message TextNo[facility] System Foundation Digger Authentication Interface Message TextNo[facility] System Foundation Digger Authentication Interface Message TextNo[facility] System Foundation Digger Authentication Interface Message TextNoUniversity [facility] System TRIGLYCERIDESon 10-10-4195Sbbmtibvoruj [Mass/Vol]199 mg/dLHigh<151The [facility] SystemComment on above:Performed By: #### CH8, MG, TRIG, PHOS ####[facility] PATHOLOGY RKIYBETMPQ8395 [place], [place], Interpretation and review of laboratory resultsAbLong Island Community Hospital SYSTEM Triglyceride [Mass/Vol]199 mg/dLHighNINF - 151 mg/dLTHE PROTESTANT HOSPITALBASIC METABOLIC PANELon 85-05-8712Dtapu gap [Moles/Vol]16 mmol/DMtzasl80-65Fzt [facility] SystemComment on above:Performed By: #### VENKAT GARRIDOS, MG ####[facility] PATHOLOGY EXMBAWDDIM8823 [place], [place], [address]Calcium [Mass/Vol]7.9 mg/dLLow8.6-10.3The [facility] SystemComment on above:Performed By: #### CH8, PHOS, MG ####[facility] PATHOLOGY FXEXAMHYIQ7608 [place], [address]Ktmtlrsi [Moles/Vol]118 mmol/LHigh 98-107The [facility] SystemComment on above:Performed By: #### RADHIKA PHOS, MG ####[facility] PATHOLOGY IMIVIENOGT3406 [place], [address]NQ9 [Moles/Vol]19 mmol/DUoi03-75Maz [facility] SystemComment on above:Performed By: #### RADHIKA, PHOS, MG ####[facility] PATHOLOGY PERSSDMMMC5725 [place], [address]Zzfgzqzumx [Mass/Vol]1.03 mg/dLNormal0.60-1.20The [facility] SystemComment on above:Performed By: #### RADHIKA PHOS, MG ####[facility] PATHOLOGY FZIKNGIJAS2937 [place], [address]IDBVQAIEO GFR (CKD-EPI) 63 mL/min/1.73sqmNormal>=60The [facility] SystemComment on above:Result Comment: 2020 CKD EPI [...] Inclusion of Race in Diagnosing Kidney Disease. Afghan Journal of Kidney Diseases 202;79(2):268-88.e1.2. N Engl J Med 2021 Vol. 385 Issue 19 Pages 1374-5266Performed By: ###BILL SALAZAR MG ####[facility] PATHOLOGY PACEISMGXV9896 [place], [address]Tftsnas [Mass/Vol]240 mg/tZMtvk02-700 The [facility] SystemComment on above:Performed By: ###BILL SALAZAR MG ####[facility] PATHOLOGY SPPHZWWECP8359 [place], [address]Alrfeqmqn [Moles/Vol]4.0 mmol/LNormal3.5-5.0The [facility] SystemComment on above: Performed By: #### BILL GARRIDO MG ####[facility] PATHOLOGY RCHNFREZRS9468 [place], [address]Udissl [Moles/Vol]149 mmol/HTjfa828-143Etr [facility] HospitalroHealth SystemComment on above:Performed By: ###BILL SALAZAR MG ####[facility] PATHOLOGY VPPTWKVFZH9975 [place], [address]Gqcw nitrogen [Mass/Vol]40 mg/dLHigh7-25The [facility] SystemComment on above:Performed By: ###BILL SALAZAR MG ####[facility] PATHOLOGY MODDGXCRUT8636 [place], [address]Vrpue metabolic 2000 panelon 18-65-2677Ktmzt gap [Moles/Vol]16 mmol/L10 - 20THE [facility] SYSTEMCalcium [Mass/Vol]7.9 mg/dLLow8.6 - 10.3 mg/dLTHE [facility] SYSTEMChloride [Moles/Vol]118 mmol/LHigh98 - 107 mmol/LTHE [facility] SYSTEMCO2 [Moles/Vol]19 mmol/LLow21 - 31 mmol/LTHE [facility] SYSTEMCreatinine [Mass/Vol]1.03 mg/dL0.60 - 1.20 mg/dLTHE [facility] GFR/1.73 sq M.predicted CKD-EPI (S/P/Bld) [Vol rate/Area]63- PINFTHE METROHEALTH SYSTEMGlucose [Mass/Vol]240 mg/eBPdsc49 - 109 mg/dLTHE [facility] Interpretation and review of laboratory resultsAbnormalTHE [facility] Potassium [Moles/Vol]4.0 mmol/L3.5 - 5.0 mmol/LTHE [facility] SYSTEMSodium [Moles/Vol]149 mmol/HQucd900 - 145 mmol/LTHE [facility] SYSTEMUrea nitrogen [Mass/Vol]40 mg/dLHigh7 - 25 mg/dLTHE METRO[facility]ALTH SYSTEMCBC panel Auto (Bld)on 48-81-0906Apzpyqmpmkd distribution width (RBC) [Ratio]16.7 %High11.5 - 14.5 %THE [facility]RO[facility]ALTH SYSTEMHematocrit (Bld) [Volume fraction]24.9 %Low36.0 - 46.0 %THE [facility] SYSTEMHemoglobin (Bld) [Mass/Vol]8.2 g/dLLow12.0 - 15.0 g/dLTHE METROHEALTH SYSTEMMCH (RBC) [Entitic mass]29.1 pg26.0 - 34.0 pgTHE METROHEALTH SYSTEMMCHC (RBC) [Mass/Vol]32.7 g/dL32.0 - 35.9 g/dLTHE METROHEALTH SYSTEMMCV (RBC) [Entitic vol]89 fL80 - 100 fLTHE METROHEALTH SYSTEMPlatelets (Bld) [#/Vol] 137 10*3/eXYzl827 - 400 K/uLTHE METROHEALTH SYSTEMRBC (Bld) [#/Vol]2.81 10*6/uL LowTHE METROHEALTH SYSTEMWBC (Bld) [#/Vol]11.9 10*3/uLHigh4.5 - 11.5 K/uLTHE METROHEALTH SYSTEMCOMPLETE BLOOD COUNTon 44-62-4949Gwzqjvouvui distribution width (RBC) [Ratio]16.7 %High11.5-14.5The [facility] SystemComment on above: Performed By: #### CBC ####S PATHOLOGY RUHZWYYGXP4386 [place], [address]Mzvvvuqazc (Bld) [Volume fraction]24.9 %Low 36.0-46.0The [facility] HospitalroHealth SystemComment on above:Performed By: #### CBC ####S PATHOLOGY RUGUHRLACS2297 [place], [address]Nnpveuaowp (Bld) [Mass/Vol]8.2 g/dLLow12.0-15.0The [facility] HospitalHealth SystemComment on above: Performed By: #### CBC ####[facility] PATHOLOGY RWTMWRYYWY9341 [place], [address]DUW (RBC) [Entitic mass]29.1 nbJhcjex59.0-34.0The [facility] HospitalroHealth SystemComment on above:Performed By: #### CBC ####[facility] PATHOLOGY IRMQGHBPWE[address] [place] [address], [address]WPUO (RBC) [Mass/Vol] 32.7 g/zFHmolbk56.0-35.9The [facility] HospitalHealth SystemComment on above:Performed By: #### CBC ####[facility] PATHOLOGY EIKMHLWGBJ[address] [place] [address], [address]UPV (RBC) [Entitic vol]89 oEKqiuqf54-017Rxd [facility] HospitalHealth SystemComment on above:Performed By: #### CBC ####[facility] PATHOLOGY FXONFURAXJ[address] [place] [address], [address]Rinaeyqd mean volume (Bld) [Entitic vol]8.7 fL Normal7.5-11.2The [facility] HospitalHealth SystemComment on above:Performed By: #### CBC ####[facility] PATHOLOGY EVARZXTMYD3450[address] [place] [address], Platelets (Bld) [#/Vol]137 10*3/zRMlw026-566Zjz [facility] HospitalHealth SystemComment on above:Performed By: #### CBC ####[facility] PATHOLOGY LJSJVXNHOW04[address] [place] [address], [address]PKC (Bld) [#/Vol]2.81 10*6/uLLow4.00-5.20The [facility] SystemComment on above:Performed By: #### CBC ####[facility] PATHOLOGY LCXUHACDCA[address] [place] [address], [address]XYZ (Bld) [#/Vol]11.9 10*3/uLHigh4.5-11.5The [facility] SystemComment on above:Performed By: #### CBC ####S PATHOLOGY CRSFQQUNVY[address] [place] [address], [address]EPC CELL COUNTOrdered By: Salvador Napier on 74-95-6270Oxrunff (U)ClearJOINT TOWNSHIP DISTRICT MEM[facility]IAL [facility]PITAL SYSTEMColor (U)ColorlessJOINT TOWNSHIP DISTRICT MEMORIAL HOSPITAL SYSTEMRBC Manual cnt (CSF) [#/Vol]/uL0 - 5 /uLTHE [facility] SYSTEMSupernatantColorlessJOINT TOWNSHIP DISTRICT MEMORIAL [facility]OS[facility]ITAL SYSTEMTube #1 THE [facility] SYSTEMWBC (CSF) [#/Vol]1 /uL0 - 5 /uLTHE [facility] SYSTEMTHE [facility] SYSTEMCSF CELL COUNTon 03-00-7467Hieerpq (U)ClearNoUniversity Hospitals Elyria Medical Center SystemComment on above:Order Comment: TNC (Total Nucleated Count) consists of WBC and lining cells.Performed By: #### CSFCOTREVOR DOEF ####S PATHOLOGY UJCJJSHVVC[address] [place] [address], [address]Oyhpa (U) ColorlessGuthrie Cortland Medical Center SystemComment on above:Order Comment: TNC (Total Nucleated Count) consists of WBC and lining cells.Performed By: #### CSFCOTREVOR DOEF ####S PATHOLOGY HYNCEQZLUK[address] [place] [address], [address]ECQ COUNT< 9Jobsyh2-8Msl [facility] SystemComment on above:Order Comment: TNC (Total Nucleated Count) consists of WBC and lining cells.Performed By: #### CSFCOHARRIS DOECSF ####S PATHOLOGY BSKPIOCCWP[address] [place] [address], [address]GMCWFTLYTFKJlpbiqabpOrlhogZhw [facility] Comment on above:Order Comment: TNC (Total Nucleated Count) consists of WBC and lining cells.Performed By: #### CSFCOHARRIS DOECSF ####S PATHOLOGY EPUZAYWJYF[address] [place] [address], [address]ZMNB #1NormalCherrington Hospital SystemComment on above:Order Comment: TNC (Total Nucleated Count) consists of WBC and lining cells.Performed By: #### CSFCOUNT, HAMILTON ####[facility] PATHOLOGY UDUUEOIXEK4162 [place], [address]LQJ (Bld) [#/Vol]0.001 10*3/uLNormal0-5The [facility] SystemComment on above:Order Comment: TNC (Total Nucleated Count) consists of WBC and lining cells.Performed By: #### HAMILTON HENDERSON ####[facility] PATHOLOGY SJFIBYMALZ7354 [place], [address]YHP DIFFERENTIALon 70-25-2263Saxfy Counted Total (Bld) [#]8 {cells}THE [employer] SYSTEM Work Phone: [phone]/100 WBC (CSF)88 %THE METROOPNET [employer], [employer] SYSTEM Work Phone: [phone]+Macrophages/100 WBC (CSF)13 %THE [employer] SYSTEM Work Phone: [phone] COUNTED TOTAL # IN MHNBE9KxwslmWbe MetroXeros SystemComment on above:Performed By: #### CSFCOHAMILTON DOE ####[facility] PATHOLOGY UANMYNPWGZ7431 [place], [address]ESLNW, SDCTMCDIKRN77 % NormalThe [facility] SystemComment on above:Performed By: #### CSFCOHAMILTON DOE ####[facility] PATHOLOGY LRXKHSYIKQ8065 [place], [address]XYTRR, MONOCYTES/ITFNSYTUHWH77 %NormalThe [facility] HospitalroHealth SystemComment on above:Performed By: #### CSFCOHAMILTON DOE ####[facility] PATHOLOGY PBOTSIFUNK1552 [place], [address]ZZ HEAD W/O CONTRASTon 03-77-9705LA HEAD W/O CONTRASTNormalThe [facility] SystemCT Head WO contrastOrdered By: Estee Doss on 01-11-1804YV OKE875.9 (mGy.cm)THE [employer] SYSTEM Work Phone: [phone] SeriesTopogram,HEAD WOTHE [employer] SYSTEM Work Phone: [phone] VOL0.10 (mGy),36.37 (mGy)THE [facility] Work Phone: PHANTOM TYPEIEC Head Dosimetry Phantom,IEC Head Dosimetry PhantomTHE [employer] SYSTEM Work Phone: THE [employer] SYSTEM Work Phone: cT Head WO contraston 03-08-1525YMNIVTDWQIOI [employer] SYSTEM Work Phone: Radiology Study observation (narrative)THE [employer] SYSTEM Work Phone: CULTURE, CSF/GRAM STAINon 92-05-9185QCSIXGM, CSF/GRAM STAINC CSF: No Growth GRAM STAIN: This Gram Stain was performed on a Cytocentrifuged specimen. No Polymorphonuclear Leukocytes seen No Squamous Epithelial Cells seen No organisms seenNormalThe [facility] Community HospitalXeros SystemComment on above:Performed By: #### C CSF ####[facility] Vtkbomevl[address] [place], [place]Care Plan Noteon 93-79-5125Mxrssqewwjrgv Authentication Interface Message TextNormal The [facility] HospitalWorkCast SystemConsultson 53-38-6665Vsdgijvquvacf Authentication Interface Message TextNormSintecMediae Huntington HospitalWorkCast SystemTranscription Authentication Interface Message TextNoOn license of UNC Medical CenterXeros SystemFUNGAL CULTURE AND SADIQ PREPon 60-60-7656FZCDQV CULTURE AND SADIQ PREPC FUNGUS: No Growth SADIQ KARYN: No Yeast Or Fungal Elements SeenNormTogus VA Medical Center SystemComment on above: Performed By: #### C FUNGUS ####[facility] Ykrjonbbc17[address] [place], [place]GLUCOSE, CSFon 13-77-9600Lsufaig (CSF) [Mass/Vol]174 mg/sIJyqb92 - 70 mg/dLTHE [facility]WORK640 [facility] SYSTEM Work Phone: GLU QGN664 mg/uMKkng02-91Tww [facility] SystemComment on above:Order Comment: Note updated reference ranges.Performed By: #### TP CSF, GLU CSF ####[facility] PATHOLOGY HEUQYDFORZ8814 [place], [address]CVRFJID, FINGERSTICK-IN OFFICEon 69-57-0410Hjwzmyj [Mass/Vol]348 mg/dL Icue46-774Mqf [facility] HospitalroHealth SystemComment on above:Performed By: #### 50915 ####NURSING GLUCOSE JNKUWMM[address] [place] [address], [address]Fwyoxce [Mass/Vol]348 mg/bIYilc80 - 110 mg/dLTHE [facility]ALTH SYSTEMInterpretation and review of laboratory resultsAbnoAtrium Health Wake Forest Baptist Medical CenterROHEALTH SYSTEMTHE [facility] Glucose [Mass/Vol]267 mg/sYQgle78-561Zuw [facility] SystemComment on above: Performed By: #### 83941 ####NURSING GLUCOSE CSIKNXD[address] [place] [address], [address]Haorkdx [Mass/Vol]267 mg/eIAswm54 - 110 mg/dLTHE [facility] NETWORKROOHIOHEALTH PICKERINGTON [facility]IST [facility]ITAL SYSTEMInterpretation and review of laboratory resultsAbnoAtrium Health Wake Forest Baptist Medical CenterROOHIOHEALTH PICKERINGTON METHODIST HOSPITAL SYSTEMTHE [facility] SYSTEMGlucose [Mass/Vol]278 mg/gOVlys50-095Iws [facility] HospitalroHealth SystemComment on above:Performed By: #### 89332 ####NURSING GLUCOSE OEALLCJ[address] [place] [address], [address]Ajpsjio [Mass/Vol]278 mg/dL High68 - 110 mg/dLTHE [facility]ALTH SYSTEMInterpretation and review of laboratory resultsAbnormCarilion New River Valley Medical CenterROHEALTH SYSTEMTHE [facility]RO[facility]ALTH SYSTEMGlucose [Mass/Vol]261 mg/wBNdwx89-310Hay [facility] HospitalroHealth SystemComment on above:Performed By: #### 34868 ####NURSING GLUCOSE GWGBLKI[address] [place] [address], [address]E AND Grayson 30-33-8187Jcuyqsecdeihn Authentication Interface Message TextNoUniversity Hospitals Elyria Medical Center SystemLACTIC ACIDon 97-22-3911LK LACT0.9 mmol/LNormal0.5-1.6The [facility] HospitalHealth SystemComment on above:Performed By: #### LACT ####S PATHOLOGY DXSRAHLDSL[address] [place] [address], [address]NV LACT1.2 mmol/LNormal 0.5-1.6The [facility] SystemComment on above:Performed By: #### LACT ####S PATHOLOGY QFFPNJCJHM[address] [place] [address], [address]RMIYFAFPYro 54-21-7034Cedbwozmo [Mass/Vol]2.5 mg/dLNormal1.9-2.7The [facility] System Comment on above:Result Comment: Note updated reference ranges.Performed By: #### CH8, PHOS, MG ####[facility] PATHOLOGY HFBQGPUNBC4940 [place], [address]Sqprjlire [Mass/Vol]2.5 mg/dL1.9 - 2.7 mg/dLTHE [facility] No Panel InformationOrdered By: Salvador Napier on 04-85-7623LXC [facility] SYSTEMNo Panel Informationon 58-74-5080Jvrhypuexspmuc and review of laboratory resultsAbnoSt. Francis Hospital SYSTEM Work Phone: THE [facility] NETWORKROOHIOHEALTH PICKERINGTON METHODIST [facility]ITAL SYSTEM Work Phone: [facility] Work Phone: Interpretation and review of laboratory resultsNormal THE [facility] SYSTEMTHE [facility] SYSTEMPHOSPHORUSon 40-81-3502Fhdgrvmke [Mass/Vol]2.6 mg/dLNormal2.5-5.0The [facility] SystemComment on above:Result Comment: Note updated reference ranges.Performed By: #### CH8, PHOS, MG ####[facility] PATHOLOGY OFODIGRRJN3197 [place], [address]Eukmqitwk [Mass/Vol]2.6 mg/dL2.5 - 5.0 mg/dLTHE [facility] SYSTEMPost-Procedure Noteon 83-00-1661Croaplonfaqif Authentication Interface Message TextNoUniversity Hospitals E[facility] Medical Center SystemProcedureson 33-66-4111Zytinshdrlwrs Authentication Interface Message TextNoUniversity Hospitals [facility] SystemProgress Noteson 21-86-5342Bgtemnxtbalzg Authentication Interface Message TextNoUniversity Hospitals [facility] SystemTranscription Authentication Interface Message TextNoUniversity [facility] SystemTranscription Authentication Interface Message TextNoUniversity [facility] SystemTranscription Authentication Interface Message TextNoUniversity [facility]als [facility] SystemTranscription Authentication Interface Message TextNoUniversity Hospitals [facility] Center SystemTOTAL PROTEIN, CSFon 70-12-0633Ohaahnv (CSF) [Mass/Vol]9.0 mg/dLLow15 - 45 mg/dLTHE [facility] NETWORKROOPNET Technologies, Inc. SYSTEM Work Phone: TP CSF9.0 mg/jJUnu63-97Xpb [facility] SystemComment on above:Order Comment: Note updated reference ranges.Performed By: #### TP CSF, GLU CSF ####[facility] PATHOLOGY ANSYRSAJSN6953 [place], [address]Jftdcsypn Plan Noteon 36-43-0267Qaoznqwppjrhh Authentication Interface Message TextNormHillcrest HospitalXeros SystemURINE CULTUREOrdered By: Carolyn Lara on 50-48-8003Kmnhmjnh identified Cx Nom (U)PositiveAbnoCleveland Clinic Akron GeneralE [facility] NETWORKROOHIOHEALTH PICKERINGTON METHODIST [facility]OSPITAL SYSTEMBacteria identified Cx Nom (U)>100,000 CFU/ml Escherichia coliTHE [facility] NETWORKROHEALTH SYSTEMBacteria identified Cx Nom (U)>100,000 CFU/ml Providencia rettgeriTHE [facility] NETWORKROHEALTH SYSTEMInterpretation and review of laboratory results AbnormalTHE [facility] NETWORKROOHIOHEALTH PICKERINGTON METHODIST HOSPITAL SYSTEMTHE [facility] NETWORKROHEALTH SYSTEMAnesthesia Postprocedure Evaluationon 79-82-2802Qinytsvslwhxf Authentication Interface Message TextNormal The [facility] HospitalroHealth SystemAnesthesia Preprocedure Evaluationon 06-27-2023 [employer] Authentication Interface Message TextNormUniversity Hospitals Geneva Medical Centere Huntington HospitalroXeros System Anesthesia Transfer Of Careon 82-57-4174Xzqoxptilndyt Authentication Interface Message TextNormUniversity Hospitals Geneva Medical Centere Huntington HospitalroXeros SystemBASIC METABOLIC PANELon 55-99-4557Pnzon gap [Moles/Vol]22 mmol/ZAyit83-69Rmi [facility] SystemComment on above: Performed By: #### MG PHOS, CH8 ####[facility] PATHOLOGY LJKAHFSXQR0718 [place], [address]Dooctoc [Mass/Vol]8.2 mg/dLLow8.6-10.3The [facility] HospitalHealth SystemComment on above:Performed By: #### MG PHOS, CH8 ####[facility] PATHOLOGY IREWYTCSJV5757 [place], [address]Abjfwukk [Moles/Vol]115 mmol/QXhfo12-614Ayk [facility] SystemComment on above:Performed By: #### MG PHOS, CH8 ####[facility] PATHOLOGY CKKILNHJUD7804 [place], [address]DG7 [Moles/Vol]17 mmol/QLfr61-29Eym [facility] SystemComment on above:Performed By: #### BILL JAUREGUI CH8 ####[facility] PATHOLOGY TCBOSJTECC4951 [place], [address]Lvyregjdir [Mass/Vol] 1.37 mg/dLHigh0.60-1.20The [facility] SystemComment on above:Performed By: #### BILL JAUREGUI CH8 ####S PATHOLOGY CVBYJJPGHW2508 [place], [address]IWHORULYP GFR (CKD-EPI)45 mL/min/1.73sqmLow>=60The [facility] System Comment on above:Result Comment: 2020 CKD [...] Inclusion of Race in Diagnosing Kidney Disease. [place] Journal of Kidney Diseases 202;79(2):268-88.e1.2. N Engl J Med 1 Vol. 385 Issue 19 Pages 9370-0932Performed By: #### BILL JAUREGUI CH8 ####[facility] PATHOLOG[facility] KEJREHZHYS7089 [place], [address]Xpfkfph [Mass/Vol]220 mg/wHIcmm00-664Hzj [facility] SystemComment on above:Performed By: #### BILL JAUREGUI CH8 ####[facility] AUVSKZLAWV9687 [place], [place], [address]Potassium [Moles/Vol]4.5 mmol/LNormal3.5-5.0The [facility] Comment on above:Performed By: #### BILL JAUREGUI CH8 ####[facility] RNWKYIBISX2268 [place], [address]Jqzssg [Moles/Vol]149 mmol/RRnyh490-518Bcr [facility] SystemComment on above:Performed By: #### BILL JAUREGUI CH8 ####[facility] ILBFFRLWAL8475 [place], [place], [address] Urea nitrogen [Mass/Vol]43 mg/dLHigh7-25The [facility] SystemComment on above:Performed By: #### BILL JAUREGUI CH8 ####[facility] TNYBDTDZZW[address] [place] [address], [address]Tbgzd gap [Moles/Vol]15 mmol/LNormal 10-20The [facility]ro[facility] SystemComment on above:Performed By: #### RADHIKA KHAN, ####[facility] JFMYBCGTXK[address] [place] [address], Calcium [Mass/Vol]8.0 mg/dLLow8.6-10.3The [facility]ro[facility] SystemComment on above: Performed By: #### RADHIKA KHAN, ####[facility] XIZHAYNHBD[address] [place] [address], [address]Etwmpktp [Moles/Vol]114 mmol/WLnfn14-726Pma [facility] SystemComment on above:Performed By: #### RADHIKA KHAN, MG ####[facility] HAGPYBMTCF5941 [place], [address]UY7 [Moles/Vol]20 mmol/CCig37-89Jvh [facility] SystemComment on above:Performed By: #### RADHIKA KHAN, MG ####[facility] AXQJMBUNKX[address] [place] [address], [address]Wvqesshrpe [Mass/Vol]1.70 mg/dLHigh0.60-1.20The [facility]ro[facility] SystemComment on above:Performed By: #### RADHIKA KHAN, MG ####[facility] DOTRSUYQGM[address]33[address] [place] [address], [address]XWQOKZABY GFR (CKD-EPI) 35 mL/min/1.73sqmLow>=60The [facility]ro[facility] SystemComment on above:Result Comment: 2020 CKD [...] Inclusion of Race in Diagnosing Kidney Disease. [place] Journal of Kidney Diseases 2021;79(2):268-88.e1.2. N Engl J Med 1 Vol. 385 Issue 19 Pages 8680-1779Performed By: #### RADHIKA KHAN, MG ####[facility] MIYDZKGFDJ3149 [place], [address]Hwmdiyy [Mass/Vol]54 mg/dLCritically dfg58-779Zpq [facility] SystemComment on above:Performed By: #### RADHIKA KHAN, MG ####S PATHOLOGY LSJLWBWUAO3529 [place], [place], Potassium [Moles/Vol]4.2 mmol/LNormal3.5-5.0The [facility]ro[facility] SystemComment on above:Performed By: #### RADHIKA KHAN, MG ####S PATHOLOGY DHHXYUBPXI3520 [place], [address]Kuwiwq [Moles/Vol]145 mmol/LNormal 136-145The [facility] SystemComment on above:Performed By: #### RADHIKA KHAN, MG ####S PATHOLOGY OEGSCGDXXB9630 [place], [address]Cujd nitrogen [Mass/Vol]44 mg/dLHigh7-25The [facility]ro[facility] SystemComment on above: Performed By: #### RADHIKA KHAN, MG ####S PATHOLOGY RIQHOUSRMQ4326 [place], [address]WRCLE GAS, ARTERIALon 61-42-6451BQ YA-7.0 mmol/L Low-2.0-3.0The [facility] SystemComment on above:Performed By: #### CR GLU, CR ICA, LACT, CR BGA, CR COOX, CR LYTES ####[facility] HHZUJQYYFB7901[place], [address]SD TLV860.0 mm HgLow35.0-45.0The [facility] HospitalroHealth SystemComment on above:Performed By: #### CR GLU, CR ICA, LACT, CR BGA, CR COOX, CR LYTES ####[facility] PATHOLOGY YMSFLTFQCB8492KnhnpRroroz[address] [place] [address], [address]HL PHA7.458Twg6.350-7.450The [facility] HospitalroHealth SystemComment on above: Performed By: #### CR GLU, CR ICA, LACT, CR BGA, CR COOX, CR LYTES ####[facility] PATHOLOGY AEAQJRNNQN6166PpsuvEyydlu[address] [place] [address], [address]SP RF2976 mm LbLmkc89-398Cyi [facility]ro[facility] SystemComment on above:Performed By: #### CR GLU, CR ICA, LACT, CR BGA, CR COOX, CR LYTES ####[facility] PATHOLOGY TLNLOWSXGV7427[address] [place] [address], [address]XGS7 (Bld) [Moles/Vol]18 mmol/LLow 21-28The [facility] Hospital[facility] SystemComment on above:Performed By: #### CR GLU, CR ICA, LACT, CR BGA, CR COOX, CR LYTES ####[facility] PATHOLOGY GTXSIIRUHM2786NjewwLqkixe[address] [place] [address], [address]Bjrpez saturation in Blood97.8 %Oqcshv71.0-99.0The [facility] SystemComment on above:Performed By: #### CR GLU, CR ICA, LACT, CR BGA, CR COOX, CR LYTES ####[facility] PATHOLOGY YAGIVGWPAZ7420GrubtFpgwxs[address] [place] [address], [address]CW YA-6.0 mmol/LLow-2.0-3.0The [facility] Comment on above:Performed By: #### CR COOX, CR LYTES, LACT, CR BGA, CR GLU, CR ICA ####[facility] PATHOLOGY ZGGTFLJOZN7589SuntmNixhyd[address] [place] [address], [address]WC ZFT851.3 mm IjSdbkvl82.0-45.0The [facility]ro[facility] SystemComment on above:Performed By: #### CR COOX, CR LYTES, LACT, CR BGA, CR GLU, CR ICA ####[facility] PATHOLOGY YBDJQUHTTT9552GfampYsntsd[address] [place] [address], [address]LK PHA7.318Low 7.350-7.450The [facility] SystemComment on above:Performed By: #### CR COOX, CR LYTES, LACT, CR BGA, CR GLU, CR ICA ####[facility] PATHOLOGY CEVKNCYVUL4735ChoguLlibeb[address] [place] [address], [address]TM HS0345 mm AnSbxj19-369Nne [facility] Comment on above:Performed By: #### CR COOX, CR LYTES, LACT, CR BGA, CR GLU, CR ICA ####[facility] PATHOLOGY ADBQJHGENH4288IdgujWlzcuc[address] [place] [address], HCO3 (Bld) [Moles/Vol]19 mmol/PZle99-94Pea [facility] SystemComment on above: Performed By: #### CR COOX, CR LYTES, LACT, CR BGA, CR GLU, CR ICA ####[facility] PATHOLOGY GBHGMJTUQN3501TsomaGbunbk[address] [place] [address], [address]Pzgtzx saturation in Blood98.0 %Vuhtfq06.0-99.0The [facility] SystemComment on above: Performed By: #### CR COOX, CR LYTES, LACT, CR BGA, CR GLU, CR ICA ####[facility] PATHOLOGY IMKGIVGMXL5387KuradXzzzkb[address] [place] [address], [address]WX YA-2.7 mmol/LLow-2.0-3.0The [facility]ro[facility] SystemComment on above:Performed By: #### CR BGA, LACT, CR GLU, CR COOX, CR LYTES, CR ICA ####[facility] PATHOLOGY DQDXRCYPPL[address] [place] [address], [address]BI PVQ705.4 mm OlXclxgy36.0-45.0The [facility] SystemComment on above:Performed By: #### CR BGA, LACT, CR GLU, CR COOX, CR LYTES, CR ICA ####[facility] PATHOLOGY AWRZBMVIQU6819ZhkveNxalpz[address] [place] [address], [address]YS PHA7.379Zxe6.350-7.450The [facility] Comment on above:Performed By: #### CR BGA, LACT, CR GLU, CR COOX, CR LYTES, CR ICA ####[facility] PATHOLOGY VEFPVMDDMK7209NhuykWewaww[address] [place] [address], [address]RD NI9378 mm IlXjwy53-277Jra [facility] SystemComment on above:Performed By: #### CR BGA, LACT, CR GLU, CR COOX, CR LYTES, CR ICA ####[facility] PATHOLOGY JBHZCSUZJA1216XtbqlQwimfq[address] [place] [address], [address]ITC8 (Bld) [Moles/Vol]23 mmol/OHkghei09-09Aqg [facility] SystemComment on above:Performed By: #### CR BGA, LACT, CR GLU, CR COOX, CR LYTES, CR ICA ####[facility] PATHOLOGY BFOWEPRSWK[address] [place] [address], [address]Xpuymm saturation in Blood96.7 %Normal 95.0-99.0The [facility] SystemComment on above:Performed By: #### CR BGA, LACT, CR GLU, CR COOX, CR LYTES, CR ICA ####[facility] PATHOLOGY HHBQHDQMAL3876RswumFcyglh[address] [place] [address], [address]UP YA-1.9 mmol/LNormal-2.0-3.0The [facility] SystemComment on above:Performed By: #### CR COOX, CR LYTES, LACT, CR ICA, CR BGA, CR GLU ####[facility] PATHOLOGY YSQBSTJAJE5724FycmvKkntjd[address] [place] [address], [address]CZ JLL939.1 mm KcWxgkna74.0-45.0The [facility] SystemComment on above:Performed By: #### CR COOX, CR LYTES, LACT, CR ICA, CR BGA, CR GLU ####[facility] PATHOLOGY PTGEJNMIHE3162MmpviRqjrtc[address] [place] [address], [address]HK PHA7.385 Normal7.350-7.450The [facility] SystemComment on above:Performed By: #### CR COOX, CR LYTES, LACT, CR ICA, CR BGA, CR GLU ####[facility] PATHOLOGY LRXENUALVR7090[address] [place] [address], [address]UR IG6138 mm HhVdbx77-370Yxd [facility] SystemComment on above:Performed By: #### CR COOX, CR LYTES, LACT, CR ICA, CR BGA, CR GLU ####[facility] PATHOLOGY PPVHLQQLZT3879QjfytLfdthf[address] [place] [address], [address]OTN5 (Bld) [Moles/Vol]22 mmol/ZEbxfbq20-39Gfd [facility] SystemComment on above:Performed By: #### CR COOX, CR LYTES, LACT, CR ICA, CR BGA, CR GLU ####[facility] PATHOLOGY MEOUTIKNSF1396ElzmeYrdidg[address] [place] [address], [address]Sejhvo saturation in Blood99.0 %Cyygli24.0-99.0The [facility] SystemComment on above:Performed By: #### CR COOX, CR LYTES, LACT, CR ICA, CR BGA, CR GLU ####[facility] PATHOLOGY XLAIBBJRXL1980XpvayQaquge[address] [place] [address], [address]Dwjpp Attestationon 56-23-7215Srlufglhamrwb Authentication Interface Message TextNormalThe [facility] SystemCALCIUM, IONIZEDon 65-40-8832VN ICA1.15 mmol/LNormal1.15-1.33The [facility] Comment on above:Result Comment: This test was developed, and its performance characteristics determined by the Department of Pathology of The [facility]. It has not been cleared or approved by the FDA. This test is used for clinical purposes only.Performed By: #### CR GLU, CR ICA, LACT, CR BGA, CR COOX, CR LYTES ####[facility] PATHOLOGY SDKFXSPBNQ6442CvvoaHmmqhk[address] [place] [address], [address]ZZ ICA1.09 mmol/LLow1.15-1.33The [facility] SystemComment on above: Result Comment: This test was developed, and its performance characteristics determined by the Department of Pathology of [facility]. It has not been cleared or approved by the FDA. This test is used for clinical purposes only.Performed By: #### CR COOX, CR LYTES, LACT, CR BGA, CR GLU, CR ICA ####[facility] PATHOLOGY CLOCKQIQSG9850AkrgzPglvhj[address] [place] [address], [address]JC ICA1.15 mmol/LNormal1.15-1.33The [facility] SystemComment on above:Result Comment: This test was developed, and its performance characteristics determined by the [facility] of [facility]. It has not been cleared or approved by the FDA. This test is used for clinical purposes only.Performed By: #### CR BGA, LACT, CR GLU, CR COOX, CR LYTES, CR ICA ####[facility] PATHOLOGY SZRLWFFUVH7934NeatgCehylr[address] [place] [address], [address]IX ICA1.17 mmol/LNormal 1.15-1.33The [facility] SystemComment on above:Result Comment: This test was developed, and its performance characteristics determined by the Department of Pathology of [facility]. It has not been cleared or approved by the FDA. This test is used for clinical purposes only.Performed By: #### CR COOX, CR LYTES, LACT, CR ICA, CR BGA, CR GLU ####[facility] PATHOLOGY OEERGLGXGD7639DvvlvKspsol[address] [place] [address], [address]QW-IEUARMCHkx 15-00-6024YHUYEYONXZQIIVQWF8.0 % High0.5-1.5The [facility] SystemComment on above:Performed By: #### CR GLU, CR ICA, LACT, CR BGA, CR COOX, CR LYTES ####[facility] PATHOLOGY FGPYEHJLSF6970IhapiEkgevw[address] [place] [address], [address]UH HBMET2.0 %High0.0-1.5The [facility] Comment on above:Performed By: #### CR GLU, CR ICA, LACT, CR BGA, CR COOX, CR LYTES ####[facility] PATHOLOGY AZSLEGXHAU4016QblzyAysmlj[address] [place] [address], Hematocrit (Bld) [Volume fraction]26.1 %Low38.0-46.0The [facility] Comment on above:Performed By: #### CR GLU, CR ICA, LACT, CR BGA, CR COOX, CR LYTES ####[facility] PATHOLOG[facility] NBZXRBYFNO1976NxjghBcdegy[address] [place] [address], Hemoglobin (Bld) [Mass/Vol]8.4 g/dLLow12.0-16.0The [facility] SystemComment on above:Performed By: #### CR GLU, CR ICA, LACT, CR BGA, CR COOX, CR LYTES ####[facility] PATHOLOG[facility] HCYNAABWYU7076JoqscZpjibn[address] [place] [address], [address]LZQUEEVUMWNBW 93.9 %Low94.0-98.0The [facility] SystemComment on above:Performed By: #### CR GLU, CR ICA, LACT, CR BGA, CR COOX, CR LYTES ####[facility] PATHOLOGY CEIMTDYLWJ8544[address] [place] [address], [address]BQALZZMGEWBFXKTMU0.9 %High0.5-1.5The [facility] SystemComment on above:Performed By: #### CR COOX, CR LYTES, LACT, CR BGA, CR GLU, CR ICA ####[facility] PATHOLOGY YADBBESIOV2390EvklmKkgltt[address] [place] [address], [address]WY HBMET2.0 %High0.0-1.5The [facility] Comment on above:Performed By: #### CR COOX, CR LYTES, LACT, CR BGA, CR GLU, CR ICA ####[facility] PATHOLOGY DEATOQQNBP0083ExoonNbprnm[address] [place] [address], Hematocrit (Bld) [Volume fraction]29.0 %Low38.0-46.0The [facility] Comment on above:Performed By: #### CR COOX, CR LYTES, LACT, CR BGA, CR GLU, CR ICA ####[facility] PATHOLOGY DXMYVZGUIY4998JqmvjYivyyb[address] [place] [address], Hemoglobin (Bld) [Mass/Vol]9.4 g/dLLow12.0-16.0The [facility] SystemComment on above:Performed By: #### CR COOX, CR LYTES, LACT, CR BGA, CR GLU, CR ICA ####[facility] PATHOLOGY ZBBPXZVCXU4714CykxbVopmvh[address] [place] [address], [address]UKKMVETBXYTFT 94.2 %Fxrqot06.0-98.0The [facility] SystemComment on above:Performed By: #### CR COOX, CR LYTES, LACT, CR BGA, CR GLU, CR ICA ####[facility] PATHOLOGY NEMZIAECSM[address] [place] [address], [address]YTZHROEYARRFIZYEC1.7 %High0.5-1.5The [facility]roHealth SystemComment on above:Performed By: #### CR BGA, LACT, CR GLU, CR COOX, CR LYTES, CR ICA ####[facility] PATHOLOGY MDWHBOJKGY4248ZcmevCjwvsh[address] [place] [address], [address]BH HBMET1.7 %High0.0-1.5The [facility] Comment on above:Performed By: #### CR BGA, LACT, CR GLU, CR COOX, CR LYTES, CR ICA ####[facility] PATHOLOGY WKSUUHFFYI3877ZwfomUttxui[address] [place] [address], Hematocrit (Bld) [Volume fraction]30.8 %Low38.0-46.0The [facility] Comment on above:Performed By: #### CR BGA, LACT, CR GLU, CR COOX, CR LYTES, CR ICA ####[facility] PATHOLOG[facility] KCYXEOQDVB2880OmdwgLnpboa[address] [place] [address], Hemoglobin (Bld) [Mass/Vol]10.0 g/dLLow12.0-16.0The [facility]ro[facility] SystemComment on above:Performed By: #### CR BGA, LACT, CR GLU, CR COOX, CR LYTES, CR ICA ####[facility] PATHOLOGY XNVOXPYHTI1451BkhkrNhnend[address] [place] [address], ILGDKVIXSFBMI02.4 %Low94.0-98.0The [facility] Hospital[facility] SystemComment on above:Performed By: #### CR BGA, LACT, CR GLU, CR COOX, CR LYTES, CR ICA ####[facility] PATHOLOGY SZVTQJIPMB4406DwilbCyxdty[address] [place] [address], [address]SRXOJKTBQFMXRLFLF5.1 % High0.5-1.5The [facility]ro[facility] SystemComment on above:Performed By: #### CR COOX, CR LYTES, LACT, CR ICA, CR BGA, CR GLU ####[facility] PATHOLOGY ZZAFMMPVMY2617WikoqGfrjka[address] [place] [address], [address]HT HBMET1.1 %Normal0.0-1.5The [facility] Comment on above:Performed By: #### CR COOX, CR LYTES, LACT, CR ICA, CR BGA, CR GLU ####[facility] PATHOLOG[facility] YLNAXFSFMQ9689BrmyjZugwzo[address] [place] [address], Hematocrit (Bld) [Volume fraction]30.0 %Low38.0-46.0The [facility] Comment on above:Performed By: #### CR COOX, CR LYTES, LACT, CR ICA, CR BGA, CR GLU ####[facility] PATHOLOG[facility] ZZKQFOMVLX5689EhstuVowcfb[address] [place] [address], Hemoglobin (Bld) [Mass/Vol]9.7 g/dLLow12.0-16.0The [facility] SystemComment on above:Performed By: #### CR COOX, CR LYTES, LACT, CR ICA, CR BGA, CR GLU ####[facility] PATHOLOGY OTLVFMHNBQ2029FjwmoNlmtvu[address] [place] [address], [address]HRFTNWXSAHIWT 95.8 %Xcsfet85.0-98.0The [facility] SystemComment on above:Performed By: #### CR COOX, CR LYTES, LACT, CR ICA, CR BGA, CR GLU ####[facility] PATHOLOGY BMWCPPZOUX9359[address] [place] [address], [address]QEFRYHHX BLOOD COUNTon 06-27-2023 Erythrocyte distribution width (RBC) [Ratio]16.1 %High11.5-14.5The [facility] SystemComment on above:Performed By: #### CBC ####[facility] PATHOLOGY JYEBWUSVEU[address] [place] [address], [address]Kcenqmkcdv (Bld) [Volume fraction]25.9 %Low36.0-46.0The [facility] SystemComment on above:Performed By: #### CBC ####[facility] PATHOLOGY GFBDAQUELR5790[address] [place] [address], Hemoglobin (Bld) [Mass/Vol]8.7 g/dLLow12.0-15.0The [facility] SystemComment on above:Performed By: #### CBC ####[facility] PATHOLOGY CPMAORJOXP913[address] [place] [address], [address]VOG (RBC) [Entitic mass]30.6 ibMuxfhc16.0-34.0The [facility]roHealth SystemComment on above:Performed By: #### CBC ####[facility] PATHOLOG[facility] ZBPBGGERBC[address] [place] [address], [address]QBZD (RBC) [Mass/Vol] 33.5 g/lJYmjqvy27.0-35.9The [facility]roHealth SystemComment on above:Performed By: #### CBC ####[facility] PATHOLOGY RRBUFSPKAV2332[address] [place] [address], [address]FQY (RBC) [Entitic vol]91 oOGdfhyr26-723Aoh [facility]roHealth SystemComment on above:Performed By: #### CBC ####[facility] PATHOLOG[facility] KMTODUDXJY8[address] [place] [address], [address]Jvwdfllt mean volume (Bld) [Entitic vol]9.3 fL Normal7.5-11.2The [facility]roHealth SystemComment on above:Performed By: #### CBC ####[facility] PATHOLOGY MGWHOWFMSS[address]33[address] [place] [address], Platelets (Bld) [#/Vol]128 10*3/lSGac509-516Qbx [facility]ro[facility] SystemComment on above:Performed By: #### CBC ####[facility] PATHOLOGY XXDFRXTLGU[address] [place] [address], [address]GXF (Bld) [#/Vol]2.84 10*6/uLLow4.00-5.20The [facility] HospitalroHealth SystemComment on above:Performed By: #### CBC ####[facility] PATHOLOGY BDETHXNOHO5065[address] [place] [address], [address]WMC (Bld) [#/Vol]10.9 10*3/uLNormal4.5-11.5The [facility]roHealth SystemComment on above:Performed By: #### CBC ####[facility] PATHOLOGY KQNOIMNSXB[address] [place] [address], Erythrocyte distribution width (RBC) [Ratio]16.3 %High11.5-14.5The [facility]roHealth SystemComment on above:Performed By: #### CBC ####[facility] PATHOLOGY UJFUUEFPRP[address] [place] [address], [address]Zliewnqlgt (Bld) [Volume fraction]30.1 %Low36.0-46.0The [facility] Hospital[facility] SystemComment on above:Performed By: #### CBC ####[facility] PATHOLOG[facility] FFGOVDRSUA[address] [place] [address], Hemoglobin (Bld) [Mass/Vol]10.3 g/dLLow12.0-15.0The [facility] HospitalHealth SystemComment on above:Performed By: #### CBC ####[facility] PATHOLOGY RTDSVKHOJK[address] [place] [address], [address]PAW (RBC) [Entitic mass]29.9 bwQbutor77.0-34.0The [facility] HospitalHealth SystemComment on above:Performed By: #### CBC ####[facility] PATHOLOG[facility] CHYODCRPOX[address] [place] [address], [address]GJSG (RBC) [Mass/Vol] 34.1 g/xKBmpugr32.0-35.9The [facility] HospitalHealth SystemComment on above:Performed By: #### CBC ####[facility] PATHOLOGY EPFSWCYEXB[address]36[address] [place] [address], [address]ORQ (RBC) [Entitic vol]88 kBJhpwqt67-470Xoa [facility] HospitalHealth SystemComment on above:Performed By: #### CBC ####[facility] PATHOLOG[facility] HFDHGNZPGI72[address] [place] [address], [address]Wafsxvqq mean volume (Bld) [Entitic vol]8.9 fL Normal7.5-11.2The [facility] HospitalHealth SystemComment on above:Performed By: #### CBC ####[facility] PATHOLOG[facility] ACPDTTPEAC[address] [place] [address], Platelets (Bld) [#/Vol]140 10*3/mEPtb441-216Ejt [facility] HospitalHealth SystemComment on above:Performed By: #### CBC ####[facility] PATHOLOGY DSRIZSUIPQ[address] [place] [address], [address]VUW (Bld) [#/Vol]3.43 10*6/uLLow4.00-5.20The [facility] Hospital[facility] SystemComment on above:Performed By: #### CBC ####[facility] PATHOLOG[facility] LWTYHTIBTZ4[address] [place] [address], [address]FUD (Bld) [#/Vol]16.8 10*3/uLHigh4.5-11.5The [facility] SystemComment on above:Performed By: #### CBC ####[facility] [id number] [place] [address], [phone] Plan Noteon [id number] Authentication Interface Message TextNormal The [facility] SystemConsultson [id number] Authentication Interface Message TextNoUniversity [facility]als [facility] SystemTranscription Authentication Interface Message TextPHYSICAL THERAPY Tx Session deferred this date as Patient is currently off floor in OR for exploratory laparotomy, possible bowel resection. Will f/u next date Molly Wang, PT, MPT (B) [phone] *Secure [facility] with [facility] SystemELECTROLYTESon 06-27-2023 Chloride [Moles/Vol]118 mmol/NRsfi73-792Aot [facility] SystemComment on above: Performed By: #### CR GLU, CR ICA, LACT, CR BGA, CR COOX, CR LYTES ####[facility] [id number] [place] [address], [phone] [Moles/Vol]4.2 mmol/LNormal3.5-5.0The [facility] SystemComment on above: Performed By: #### CR GLU, CR ICA, LACT, CR BGA, CR COOX, CR LYTES ####[facility] [id number] [place] [address], [id number] [Moles/Vol]149 mmol/UGmsq383-444Bpx [facility] SystemComment on above:Performed By: #### CR GLU, CR ICA, LACT, CR BGA, CR COOX, CR LYTES ####[facility] [id number] [place] [address], [phone] [Moles/Vol]117 mmol/UKoef82-985Ngn [facility] SystemComment on above:Performed By: #### CR COOX, CR LYTES, LACT, CR BGA, CR GLU, CR ICA ####[facility] [id number] [place] [address], [phone] [Moles/Vol]4.2 mmol/LNormal 3.5-5.0The [facility] Hospital[facility] SystemComment on above:Performed By: #### CR COOX, CR LYTES, LACT, CR BGA, CR GLU, CR ICA ####[facility] [id number] [place] [address], [phone] [Moles/Vol]148 mmol/ZYhnx724-509Cwx [facility] SystemComment on above:Performed By: #### CR COOX, CR LYTES, LACT, CR BGA, CR GLU, CR ICA ####[facility] [id number] [place] [address], [phone] [Moles/Vol]114 mmol/TBmhf89-119Mag [facility] SystemComment on above:Performed By: #### CR BGA, LACT, CR GLU, CR COOX, CR LYTES, CR ICA ####[facility] PATHOLOGY OGBUQWYESE2796OdryuLvyohk[address] [place] [address], [address]Ohpiakvhr [Moles/Vol]4.1 mmol/LNormal3.5-5.0The [facility] SystemComment on above:Performed By: #### CR BGA, LACT, CR GLU, CR COOX, CR LYTES, CR ICA ####[facility] PATHOLOGY SESHQFELZQ4290MhouiSbwzhg[address] [place] [address], [address]Odetna [Moles/Vol]148 mmol/SPkfc936-205Env [facility] SystemComment on above:Performed By: #### CR BGA, LACT, CR GLU, CR COOX, CR LYTES, CR ICA ####[facility] PATHOLOGY BUMTFAWHRO1206HfgtpAycrvn[address] [place] [address], [address]Dmmyfjol [Moles/Vol]115 mmol/OXsaq91-043Jdc [facility] SystemComment on above:Performed By: #### CR COOX, CR LYTES, LACT, CR ICA, CR BGA, CR GLU ####[facility] PATHOLOGY HYLWTBGJAP1661FaoetSddteb[address] [place] [address], [address]Lxdusbmqx [Moles/Vol]3.7 mmol/LNormal3.5-5.0The [facility] HospitalroHealth SystemComment on above:Performed By: #### CR COOX, CR LYTES, LACT, CR ICA, CR BGA, CR GLU ####S PATHOLOGY IDLLVMQKRI8069FyfmaMxkuye[address] [place] [address], [address]Ittrca [Moles/Vol]147 mmol/GRvba736-506Auy [facility] SystemComment on above:Performed By: #### CR COOX, CR LYTES, LACT, CR ICA, CR BGA, CR GLU ####[facility] PATHOLOGY BUIWKXXZJG0661ZacbrNnnnoz[address] [place] [address], [address]EJCFFYV, FINGERSTICK-IN OFFICEon 03-06-4854Zylbrwp [Mass/Vol]116 mg/gTUhxe98-547Adc [facility]ro[facility] SystemComment on above:Performed By: #### 25997 ####NURSING GLUCOSE NNRIXJP4064 [place], [place], [address]Rcgzjgs [Mass/Vol]110 mg/lPDmxpcu09-707Mft [facility] SystemComment on above:Performed By: #### 46505 ####NURSING GLUCOSE LYASVYA6851 [place], [place], [address]Nglihme [Mass/Vol]124 mg/pBRuad98-144Xdn [facility] SystemComment on above:Performed By: #### 95794 ####NURSING GLUCOSE AEIDOBJ0904 [place], [place], [address]Csyepsu [Mass/Vol]61 mg/iKPyr98-168Zaq [facility]ro[facility] SystemComment on above:Performed By: #### 46677 ####NURSING GLUCOSE NDWILZY7072 [place], [place], [address]Lxwnrzg [Mass/Vol]107 mg/dL Ybxxgo65-011Zac [facility] SystemComment on above:Performed By: #### 16925 ####NURSING GLUCOSE PDPGBEM2036 [place], [place], [address]Jvwgyet [Mass/Vol]104 mg/xKGblfew32-751Din [facility] SystemComment on above:Performed By: #### 57507 ####NURSING GLUCOSE PRGWRRL7270 [place], [place], [address]Ouzujao [Mass/Vol]59 mg/nEFij99-212Rop [facility] SystemComment on above: Performed By: #### 47119 ####NURSING GLUCOSE BQHVUBV[address] [place] [address], [address]IZRADNN, WHOLE BLOODon 05-09-0800BN NDA067 mg/dLHigh 70-105The [facility] SystemComment on above:Performed By: #### CR GLU, CR ICA, LACT, CR BGA, CR COOX, CR LYTES ####[facility] PATHOLOGY RMDCSWPYJP5649WzombNzjjmm[address] [place] [address], [address]XA CMV060 mg/sBNixw15-441Vgq [facility] Comment on above:Performed By: #### CR COOX, CR LYTES, LACT, CR BGA, CR GLU, CR ICA ####[facility] PATHOLOGY FKEWZBNGWC3423IlcyzOqfzfp[address] [place] [address], [address]JR YRP584 mg/zCIolc44-049Lto [facility] SystemComment on above:Performed By: #### CR BGA, LACT, CR GLU, CR COOX, CR LYTES, CR ICA ####[facility] PATHOLOGY ZPHUABPAYA2146BoqtpKakixm[address] [place] [address], [address]QF HXK879 mg/dLHigh 70-105The [facility] SystemComment on above:Performed By: #### CR COOX, CR LYTES, LACT, CR ICA, CR BGA, CR GLU ####[facility] PATHOLOGY IUBCLFUIPW3690QrgijKdvqlj[address] [place] [address], [address]I AND Grayson 07-13-8356Cxufqasexcnzs Authentication Interface Message TextNoUniversity [facility] SystemTranscription Authentication Interface Message TextNoUniversity [facility]als [facility] SystemLACTIC ACIDon 13-20-2908XC LACT0.9 mmol/LNormal0.5-1.6The [facility] SystemComment on above:Performed By: #### CR GLU, CR ICA, LACT, CR BGA, CR COOX, CR LYTES ####[facility] PATHOLOGY USSYGTWHWS6590XctnkWxjsgv[address] [place] [address], [address]ML LACT0.9 mmol/LNormal 0.5-1.6The [facility] SystemComment on above:Performed By: #### CR COOX, CR LYTES, LACT, CR BGA, CR GLU, CR ICA ####[facility] PATHOLOGY NZEVGXQGYR7960PcsbnWdgyhp[address] [place] [address], [address]MP LACT1.0 mmol/LNormal0.5-1.6The [facility] SystemComment on above:Performed By: #### CR BGA, LACT, CR GLU, CR COOX, CR LYTES, CR ICA ####[facility] PATHOLOGY KRPMAATQHU3441YfrleDfjfuw[address] [place] [address], [address]EL LACT0.8 mmol/LNormal0.5-1.6The [facility] SystemComment on above: Performed By: #### CR COOX, CR LYTES, LACT, CR ICA, CR BGA, CR GLU ####[facility] PATHOLOGY RFKYFZDHVL6617EuszcLefcnj[address] [place] [address], [address]WR LACT1.5 mmol/LNormal0.5-1.6The [facility] SystemComment on above:Performed By: #### LACT ####[facility] PATHOLOGY HCJWWRHYGB99[address] [place] [address], MAGNESIUMon 34-34-3175Xyppdaach [Mass/Vol]2.5 mg/dLNormal1.9-2.7The [facility] SystemComment on above:Result Comment: Note updated reference ranges.Performed By: #### MG, PHOS, CH8 ####S PATHOLOGY YVDDZYNLQM7339[address] [place] [address], [address]Ocladkqza [Mass/Vol]2.6 mg/dLNormal1.9-2.7The [facility] SystemComment on above:Result Comment: Note updated reference ranges.Performed By: #### PHOS, CH8, MG ####S PATHOLOGY DFXPILHQXZ0927[address] [place] [address], [address]TR Noteon 18-53-3360Pdmlggdvzmbjs Authentication Interface Message TextG[facility]rie [facility] SystemOR Nursingon 35-92-3918Zcggelmwrhkzy Authentication Interface Message TextReport given to Angella Escudero RN 1950: let 5 yamile SAINZ know patient was on the way [facility] PHOSPHORUSon 35-66-5870Gliafxomw [Mass/Vol]4.1 mg/dLNormal2.5-5.0The [facility] SystemComment on above:Result Comment: Note updated reference ranges.Performed By: #### MGBILL, RADHIKA ####[facility] UDNWSKNBSL1636 [place], [address]Kartgddvc [Mass/Vol]3.6 mg/dLNormal2.5-5.0The [facility] SystemComment on above:Result Comment: Note updated reference ranges.Performed By: #### RADHIKA KHAN, MG ####[facility] PATH[facility] TNPHWTMNSS1042 [place], [address]YAVINOFFMAB TIME AND INRon 06-27-2023 INR Coag (PPP) [Relative time]1.10 {INR}Normal0.90-1.10The [facility] Comment on above:Performed By: #### PT ####S PATHOLOGY BWLRYZODMS9[address] [place] [address], [address]KN Coag (PPP) [Time]12.3 sNormal 9.7-12.9The [facility] SystemComment on above:Performed By: #### PT ####S PATHOLOGY OEVQHNWCDB[address]50[address] [place] [address], [address]Mxzbeeniuvda 28-85-9326Kcbzezhjexhes Authentication Interface Message TextG[facility] SystemProgress Noteson 65-76-4026Mteepmflicymg Authentication Interface Message TextPatient's dexcom and insulin machine is in family member's possession when [place] went down to [place] @[address] [place] [address] SystemTranscription Authentication Interface Message TextPt [facility] potentially [facility] after her [facility] 06/26 SW will continue to follow peripherally if needs arise Qasim Hamlin [facility] SystemTranscription Authentication Interface Message TextG[facility] SystemTranscription Authentication Interface Message TextG[facility] SystemTranscription Authentication Interface Message /LADARIUS mcgarry notified of critical Glucose value of 61. /LADARIUS mcgarry read back critical results. New orders received. Hypoglycemia protocol initiated. ~0916 recheck blood glucose. 124 D5LR cont. Fluids orderedNoUniversity Hospitals Elyria Medical [facility] SystemTranscription Authentication Interface Message TextNoUniversity Hospitals [facility] SystemRED BLOOD CELL COMPONENTon 17-15-6918HY ORDER ITEMProduct status info to followGuthrie Cortland Medical Center SystemComment on above:Performed By: #### RBO ####S PATHOLOGY VPSDQBVKKF[address] [place] [address], [address]AUF BLOOD CELL UNIT STATUSon 14-11-8175HZIIZ PRODUCT MANUQ5890P43XtntjuFqu [facility] SystemComment on above:Performed By: #### RBU ####[facility] PATHOLOGY OEHSRGBMXT[address] [place] [address], [address]DJNSB PRODUCT DESCRIPTIONRed Blood CellsNoUniversity Hospitals Elyria Medical Center SystemComment on above:Performed By: #### RBU ####[facility] PATHOLOGY VOGKGQJJFJ5339[address] [place] [address], [address]BXLKP PRODUCT STATUS Returned to d BnkNormalCherrington Hospital SystemComment on above:Performed By: #### RBU ####[facility] PATHOLOGY POXMPAEQJF2618[address] [place] [address], [address]SXSTC PRODUCT UNIT [id number] [facility] Comment on above:Performed By: #### RBU ####[facility] PATHOLOGY RRMEIAKKOR698[address] [place] [address], [address]JCVLI PRODUCT UNIT [id number] NormalCherrington Hospital SystemComment on above:Performed By: #### RBU ####[facility] PATHOLOGY RICXVVPTVI148[address] [place] [address], [address]PRQMH PRODUCT UNIT [id number] Hospitals Elyria Medical Center SystemComment on above:Result Comment: A Pos Performed By: #### RBU ####S PATHOLOGY OZFBPCVIRQ3879[address] [place] [address], [address]HFFHMYUZNT INTERPRETATIONCompatible (E)NormalCherrington Hospital SystemComment on above:Performed By: #### RBU ####[facility] PATHOLOGY QYJEFXSATO9[address] [place] [address], [address]IO ABDOMEN AP 1 VIEWon 03-19-2980GE ABDOMEN AP 1 VIEWNormWyandot Memorial HospitalBASIC METABOLIC PANEL on 94-69-5578Pisji gap [Moles/Vol]12 mmol/RReaeza29-87Bpu [facility] Comment on above:Performed By: #### CH8, MG, PHOS ####[facility] PATH[facility] NHRTVTEWGX3082 [place], [address]Izqalek [Mass/Vol]7.9 mg/dLLow8.6-10.3The [facility] SystemComment on above:Performed By: #### CH8, MG, PHOS ####[facility] PATH[facility] XQABUKTNUS4912 [place], [place], [address]Chloride [Moles/Vol]110 mmol/EEixl35-593Cre [facility] SystemComment on above:Performed By: #### CH8, MG, PHOS ####[facility] TWIUKRWZLX9908 [place], [address]FH1 [Moles/Vol]23 mmol/NKxtzwl32-95Ayn [facility] SystemComment on above:Performed By: #### CH8, MG, PHOS ####[facility] VWRQNFCLTG5251 [place], [address]Emoywzkxrv [Mass/Vol]2.16 mg/dLHigh0.60-1.20The [facility] SystemComment on above: Performed By: #### CH8, MG, PHOS ####[facility] IVJVMXZAWT9931 [place], [address]YHFFAAEUW GFR (CKD-EPI)26 mL/min/1.73sqmLow>=60The [facility] SystemComment on above:Result Comment: 2020 CKD EPI [...] Inclusion of Race in Diagnosing Kidney Disease. [place] Journal of Kidney Diseases 2021;79(2):268-88.e1.2. N Engl J Med 2020 Vol. 385 Issue 19 Pages 173-1743Performed By: #### MG GARRIDO PHOS ####S PATHOLOGY IKHQRPSWPH8446 [place], Glucose [Mass/Vol]191 mg/pQIdvg72-539Tjx [facility] HospitalHealth SystemComment on above: Performed By: #### MG GARRIDO PHOS ####S PATHOLOGY WRHSXBLMSM9078 [place], [address]Ftthdsukg [Moles/Vol]5.4 mmol/LHigh3.5-5.0The [facility] HospitalroHealth SystemComment on above:Performed By: #### MG GARRIDO PHOS ####[facility] PATHOLOGY RTDTSINKTS6865 [place], [address]Yfmrye [Moles/Vol]140 mmol/TGgfpes487-637Rsm [facility] HospitalHealth SystemComment on above: Performed By: #### MG GARRIDO PHOS ####[facility] PATHOLOGY HSDZNRASTE[address] [place] [address], [address]Qjiw nitrogen [Mass/Vol]49 mg/dLHigh7-25The [facility] HospitalHealth SystemComment on above:Performed By: #### MG GARRIDO PHOS ####[facility] PATHOLOGY XYJFLIAVTN1064[address] [place] [address], [address]LBPLOTPC BLOOD COUNTon 18-72-1887Qwudyxqdxbv distribution width (RBC) [Ratio]16.0 %High 11.5-14.5The [facility] HospitalHealth SystemComment on above:Performed By: #### CBC ####S PATHOLOGY PAMMWMUYZS4194 [place], [address]Bngcuyaozr (Bld) [Volume fraction]33.1 %Low36.0-46.0The [facility] HospitalHealth SystemComment on above: Performed By: #### CBC ####S PATHOLOGY MHIEEGYORR604[address] [place] [address], [address]Aictcvuzyc (Bld) [Mass/Vol]11.1 g/dLLow12.0-15.0 The [facility] HospitalHealth SystemComment on above:Performed By: #### CBC ####[facility] PATH[facility] SLCHZFPUYX4293 [place], [address]TOV (RBC) [Entitic mass]29.9 dpOihhgs79.0-34.0The [facility] HospitalroHealth SystemComment on above:Performed By: #### CBC ####[facility] PATHOLOGY CFMLBWYKVG744[address] [place] [address], [address]UAWA (RBC) [Mass/Vol]33.5 g/nTZjcidn26.0-35.9The [facility] Comment on above:Performed By: #### CBC ####[facility] PATHOLOGY PNTOAAEROH936[address] [place] [address], [address]DJJ (RBC) [Entitic vol]89 fLNormal 80-100The [facility] SystemComment on above:Performed By: #### CBC ####[facility] PATHOLOGY FPLLNPHYYV933[address] [place] [address], [address]Zrmxkweh mean volume (Bld) [Entitic vol]9.1 fLNormal7.5-11.2The [facility] HospitalHealth SystemComment on above:Performed By: #### CBC ####[facility] PATHOLOGY UROOXNNSWJ072[address] [place] [address], [address]Dgrkztsek (Bld) [#/Vol]135 10*3/zZVpd858-479Lib [facility] SystemComment on above:Performed By: #### CBC ####[facility] PATHOLOGY IHPVUCVEFM2849[address] [place] [address], [address]ROB (Bld) [#/Vol]3.71 10*6/uLLow4.00-5.20The [facility] HospitalroHealth SystemComment on above:Performed By: #### CBC ####[facility] PATHOLOGY ZJXSTQWPLE313[address] [place] [address], [address]QCP (Bld) [#/Vol]11.6 10*3/uLHigh4.5-11.5The [facility] SystemComment on above: Performed By: #### CBC ####[facility] PATHOLOGY QCVVPYCSHD049[address] [place] [address], [address]Eykp Plan Noteon 36-18-1423Qbyngqswkxowe Authentication Interface Message TextNormalThe [facility] SystemConsultson 36-63-3084Vzswfwqaiklsx Authentication Interface Message TextNormTogus [facility] SystemTranscription Authentication Interface Message TextNoUniversity Hospitals [facility] SystemGLUCOSE, FINGERSTICK-IN OFFICEon 01-99-8094Nllupxl [Mass/Vol] 91 mg/iIViecgd09-215Fvh [facility] SystemComment on above:Performed By: #### 84987 ####NURSING GLUCOSE NPXFKIC[address] [place] [address], [address] LACTIC ACIDon 21-87-3088LW LACT1.4 mmol/LNormal0.5-1.6The [facility] Comment on above:Performed By: #### LACT ####[facility] PATH[facility] XYNLLRLOQJ8[address] [place] [address], [address]OT LACT1.9 mmol/LHigh0.5-1.6The [facility] SystemComment on above:Performed By: #### LACT ####[facility] IPZDHNMNME0211[address] [place] [address], [address]IONPKWWMDeb 06-26-2023 Magnesium [Mass/Vol]1.4 mg/dLLow1.9-2.7The [facility] SystemComment on above: Result Comment: Note updated reference ranges.Performed By: #### CH8, MG, PHOS ####[facility] BUWWXRPDYP4410 [place], PHOSPHORUSon 64-14-6423Upngjpfhd [Mass/Vol]4.2 mg/dLNormal2.5-5.0The [facility] SystemComment on above:Result Comment: Note updated reference ranges.Performed By: #### CH8, MG, PHOS ####[facility] PATH[facility] ORUAKTPXVY359[address] [place] [address], [address]Iogtxhvo Noteson 83-53-1877Zqnnrowjckfma Authentication Interface Message TextNoUniversity [facility] SystemTranscription Authentication Interface Message TextNoUniversity [facility] SystemTranscription Authentication Interface Message Text06/26/23 0432 Vital Signs SpO2 85 % MD Juan Chambers notified of O2.NormalThe [facility] HospitalroHealth SystemXR ABDOMEN AP 1 VIEWon 95-09-6372JT ABDOMEN AP 1 VIEWNormalThe [facility] HospitalroHealth SystemXR ABDOMEN AP 1 VIEW NormalThe [facility] SystemXR CHEST AP OR PA 1 VIEWon 87-84-3548TX CHEST AP OR PA 1 VIEWNormalThe [facility] HospitalroHealth SystemABO RH TYPEon 07-04-4640UWK and Rh group Nom (Bld)Blood group A Rh(D) positiveNormUniversity Hospitals Geneva Medical Centere [facility] SystemComment on above:Performed By: #### ABORH ####[facility] PATHOLOGY VXPWOKSYSA95[address] [place] [address], [address]QNFOG METABOLIC PANELon 33-34-8262Grkox gap [Moles/Vol]16 mmol/LUvqzho87-76Tcc [facility] SystemComment on above:Performed By: #### CH8 ####[facility] PATHOLOGY UMZXUPDATK734[address] [place] [address], [address]Cgyfbzx [Mass/Vol]8.0 mg/dLLow8.6-10.3The [facility] SystemComment on above:Performed By: #### CH8 ####[facility] PATHOLOGY MZHMNDMIFP9734[address] [place] [address], [address]Eoquzrbb [Moles/Vol]110 mmol/TOmvd73-625Kqi [facility] SystemComment on above:Performed By: #### CH8 ####[facility] PATHOLOGY QFFAKGAEYP[address] [place] [address], [address]TB2 [Moles/Vol]22 mmol/WJnjudg79-51Tky [facility] SystemComment on above:Performed By: #### CH8 ####[facility] PATHOLOGY USLVIWDWEP3315[address] [place] [address], Creatinine [Mass/Vol]1.86 mg/dLHigh0.60-1.20The [facility] SystemComment on above:Performed By: #### CH8 ####[facility] PATHOLOGY VPGTSUFOIJ6915[address] [place] [address], [address]NDSWWEVVB GFR (CKD-EPI)31 mL/min/1.73sqmLow>=60The [facility] SystemComment on above:Result Comment: 2020 CKD EPI [...] Inclusion of Race in Diagnosing Kidney Disease. [place] Journal of Kidney Diseases 2021;79(2):268-88.e1.2. N Engl J Med 1 Vol. 385 Issue 19 Pages 5248-4364Performed By: #### CH8 ####S PATHOLOGY WTDRPIDUNO6720 [place], [address]Uvuckbu [Mass/Vol]107 mg/fRIcclqb32-899Gia [facility] SystemComment on above:Performed By: #### CH8 ####[facility] PATHOLOGY PHZHAEIZZM2528 [place], [address]Ltvkbguvr [Moles/Vol]4.7 mmol/LNormal3.5-5.0The [facility] Comment on above:Performed By: #### CH8 ####S PATHOLOGY HHOXWWEMKQ0161 [place], [address]Ivbmrp [Moles/Vol]143 mmol/LNormal 136-145The [facility] HospitalroHealth SystemComment on above:Performed By: #### CH8 ####S PATHOLOGY VOEKOMGALR5967 [place], [address]Qjdb nitrogen [Mass/Vol]41 mg/dLHigh7-25The [facility] Hospitalro[facility] SystemComment on above:Performed By: #### CH8 ####S PATHOLOGY UJIFKAYTVK7910 [place], [address]Quppq gap [Moles/Vol]13 mmol/CFeqkfy37-64Cax [facility] SystemComment on above:Performed By: #### CH8 ####S PATHOLOGY CZJQLCJPXO6127 [place], [address]Ipvygxp [Mass/Vol]8.4 mg/dLLow8.6-10.3The [facility] SystemComment on above:Performed By: #### CH8 ####S PATHOLOGY RMAXNQZQPN2962 [place], [address]Fanoonen [Moles/Vol]110 mmol/TRdci14-832Mog [facility]ro[facility] SystemComment on above:Performed By: #### CH8 ####S PATHOLOGY HCFMUPODPZ5664 [place], [address]DC2 [Moles/Vol]22 mmol/TMdjcrs28-36Wtf [facility] Hospitalro[facility] SystemComment on above:Performed By: #### CH8 ####S PATHOLOGY YXITIYVCNF4517 [place], [address]Flvviwpvjq [Mass/Vol]1.40 mg/dLHigh0.60-1.20The [facility] Comment on above:Performed By: #### CH8 ####[facility] PATHOLOGY QHFQZXGOZN5709 [place], [address]HKGGLOLOK GFR (CKD-EPI)44 mL/min/1.73sqmLow>=60The [facility] SystemComment on above:Result Comment: 2020 CKD EPI Equation using Creatinine without RaceComment: Estimated glomerular david tration rate (eGFR) is calculated without a race coefficient. Values should be interpreted in the context of the patient's full clinical presentation.Reference:1. Cooper C, Bakarime M, Karyn DC, et al.. A Unifying Approach for GFR Estimation: Recommendations of the NKF-ASN Task Force on Reassessing the Inclusion of Race in Diagnosing Kidney Disease. [place] Journal of Kidney Diseases 2021;79(2):268-88.e1.2. N Engl J Med 1 Vol. 385 Issue 19 Pages 0090-3491Performed By: #### CH8 ####S PATHOLOGY AUFEPJPENH6587 [place], [address]Pavbrht [Mass/Vol]129 mg/iSKwdm91-753 The [facility] SystemComment on above:Performed By: #### CH8 ####[facility] HRJNEBNJCJ2416 [place], [address]Vxvetcqdo [Moles/Vol] 3.2 mmol/LLow3.5-5.0The [facility] SystemComment on above:Performed By: #### CH8 ####S PATHOLOGY GXKIRPAAHD4388 [place], Sodium [Moles/Vol]142 mmol/PWmdveb623-070Jxt [facility]roHealth SystemComment on above: Performed By: #### CH8 ####S PATHOLOGY HMSRBXDETW7430 [place], [address]Eizg nitrogen [Mass/Vol]30 mg/dLHigh7-25The [facility] HospitalHealth SystemComment on above:Performed By: #### HUBER8 ####[facility] PATHOLOGY DOHZGWWUMJ7276 [place], [address]MQP WITH DIFFERENTIALon 62-24-3916Jqogjnjauyz distribution width (RBC) [Ratio]15.9 %High11.5-14.5The [facility] HospitalHealth SystemComment on above:Performed By: ###HARRIS MCDONNELL ####S PATHOLOGY GSKJRNMFNT3301 [place], [address]Gxekmnflxm (Bld) [Volume fraction]31.6 %Low36.0-46.0The [facility] HospitalHealth SystemComment on above: Performed By: ###HARRIS MCDONNELL ####[facility] PATHOLOGY JHZVDXLKNI3557 [place], [address]Fkzlrvrmjv (Bld) [Mass/Vol]10.4 g/dLLow12.0-15.0 The [facility] SystemComment on above:Performed By: #### HARRIS POSEY ####[facility] PATHOLOGY TXWLQGZIIT5752 [place], [address]CGS (RBC) [Entitic mass]30.2 roSjzwao07.0-34.0The [facility] HospitalHealth SystemComment on above: Performed By: #### HARRIS POSEY ####[facility] PATHOLOGY BUIQDIMAKF8186 [place], [address]XXUQ (RBC) [Mass/Vol]32.9 g/tWLcwpvr34.0-35.9The [facility] SystemComment on above:Performed By: ###HARRIS MCDONNELL ####[facility] PATHOLOGY CQWTSTRQNW[address] [place] [address], [address]VUN (RBC) [Entitic vol]92 yZGjinpj80-784Fin [facility] Hospitalro[facility] SystemComment on above:Performed By: #### HARRIS POSEY ####[facility] ROWADJQMTV[address] [place] [address], [id number] DISTRIBUTION CGRXT69Eytg<=20The [facility] SystemComment on above:Performed By: #### HARRIS POSEY ####[facility] PATHOLOGY ILEYLZTPUM[address] [place] [address], [id number] mean volume (Bld) [Entitic vol]9.0 fLNormal7.5-11.2The [facility] SystemComment on above:Performed By: #### HARRIS POSEY ####[facility] BGFOSKOMIB[address] [place] [address], [id number] (Bld) [#/Vol]140 10*3/uLLow 150-400The [facility] HospitalroHealth SystemComment on above:Performed By: #### HARRIS POSEY ####[facility] PATHOLOGY DIVQKHYJOA[address] [place] [address], [address]IUO (Bld) [#/Vol]3.45 10*6/uLLow4.00-5.20The [facility] SystemComment on above: Performed By: ###HARRIS MCDONNELL ####[facility] PATHOLOGY UKONVKMUCI[address] [place] [address], [address]VZW (Bld) [#/Vol]15.5 10*3/uLHigh4.5-11.5The [facility] HospitalroHealth SystemComment on above:Performed By: #### HARRIS POSEY ####S PATHOLOGY EQFDWBHPSZ[address] [place] [address], [address]Ehffewhmgyi distribution width (RBC) [Ratio]15.2 %High11.5-14.5The Metro[facility] SystemComment on above:Performed By: ###HARRIS MCDONNELL ####[facility] PATHOLOGY RIAFVXDSJA[address] [place] [address], [address]Viushihqtf (Bld) [Volume fraction]36.4 %Vagcbe67.0-46.0The [facility] HospitalroHealth SystemComment on above:Performed By: #### HARRIS POSEY ####S PATHOLOGY ZGLQUAPJVT6117 [place], [address]Vmtupzhpmt (Bld) [Mass/Vol]12.1 g/mTMdbift91.0-15.0The [facility] SystemComment on above:Performed By: #### HARRIS POSEY ####[facility] PATHOLOGY ZFQWYKORBR[address] [place] [address], [address]POA (RBC) [Entitic mass]29.7 ssQkgapj53.0-34.0The [facility] HospitalroHealth SystemComment on above:Performed By: #### HARRIS POSEY ####[facility] PATHOLOGY MFMFLKCASF[address] [place] [address], [address]MSAR (RBC) [Mass/Vol]33.1 g/cHAaatpn14.0-35.9The [facility] HospitalroHealth SystemComment on above:Performed By: #### HARRIS POSEY ####[facility] PATHOLOGY DEYFHWCAJH[address] [place] [address], [address]ANX (RBC) [Entitic vol] 90 fYAsrjfw31-168Zbe [facility] HospitalroHealth SystemComment on above:Performed By: ###HARRIS MCDONNELL ####[facility] PATHOLOGY ZHXMXNUHIY[address] [place] [address], [address]Pbmssnot mean volume (Bld) [Entitic vol]8.1 fLNormal7.5-11.2The [facility] HospitalroHealth SystemComment on above:Performed By: ###HARRIS MCDONNELL ####[facility] PATHOLOGY WXOFPVATXS[address] [place] [address], [address]Mcmxjeesr (Bld) [#/Vol]176 10*3/jPLixlhy410-666Leb [facility] HospitalroHealth SystemComment on above: Performed By: ###HARRIS MCDONNELL ####[facility] PATHOLOGY OALATZUMFC[address] [place] [address], [address]HXM (Bld) [#/Vol]4.06 10*6/uLNormal4.00-5.20The [facility] SystemComment on above:Performed By: ###HARRIS MCDONNELL ####S PATHOLOGY TABEGXGEOV5253 [place], [address]PXH (Bld) [#/Vol]5.1 10*3/uLNormal4.5-11.5The [facility] SystemComment on above:Performed By: #### HARRIS POSEY ####S PATHOLOGY OICDCCDLXQ7653 [place], [address]Keyd Plan Noteon 53-50-0212Kibvalvvnyzhl Authentication Interface Message TextNoUniversity [facility]als [facility] SystemED Noteson 10-62-6289Nxkzaxznoltty Authentication Interface Message Text.. Dr ROMAN notified of critical LACTATE value of 3.3. Hard copy of results given to .[facility] SystemTranscription Authentication Interface Message CandyDrGiancarlo BONE notified of critical LACTATE value of 5.6. Hard copy of results given to Dr. TABARES. [facility] SystemTranscription Authentication Interface Message CandyDrGiancarlo VASQUES notified of critical LACTATE value of 3.5. Hard copy of results given to Dr. Ulises VASQUES. [facility] SystemED Provider Noteson 06-25-2023 [employer]ger Authentication Interface Message TextNo[facility] System Foundation [employer]ger Authentication Interface Message TextNo[facility] System Foundation Digger Authentication Interface Message TextNo[facility] System Foundation Digger Authentication Interface Message TextNoAt[facility] Health Wake Forest BaptistroSelect Medical [facility] SystemH AND [place] [phone] Authentication Interface Message TextNoUniversity [facility] SystemLACTATE WITH REPEAT EDon 65-85-4324NA LACT3.3 mmol/LCritically high0.5-1.6The [facility] SystemComment on above:Performed By: #### LACTREPEAT ####[facility] PATHOLOGY EVWAVORTSZ[address] [place] [address], [address]VJ LACT3.5 mmol/LCritically high0.5-1.6The [facility] SystemComment on above: Performed By: #### LACTREPEAT ####[facility] PATHOLOGY TRNGTMANYO[address] [place] [address], [address]TQKRMB ACIDon 98-37-4803RX LACT5.6 mmol/L Critically high0.5-1.6The [facility] SystemComment on above:Performed By: #### LACT ####[facility] PATHOLOGY LENBPAKOAB[address] [place] [address], MANUAL DIFF AND MORPHon 32-66-6383GAXRLTJZBKOOUwjopdKubudhHgj [facility] Comment on above:Performed By: ###HARRIS MCDONNELL ####S PATHOLOGY PMEXYRIWGN[address] [place] [address], [address]GLVQL % BY MANUAL COUNT 17 %High<=10The [facility] SystemComment on above:Performed By: ###HARRIS MCDONNELL ####[facility] PATHOLOGY EKQDIIEGGN[address] [place] [address], 4 BANDS ABS BY MANUAL COUNT2.64 K/uLHigh<0.01The [facility] Comment on above:Performed By: ###HARRIS MCDONNELL ####[facility] PATHOLOGY ZDAQISAEAZ[address] [place] [address], [address]HXHIH COUNTED TOTAL # IN [id number] [place], [place] [id number] on above:Performed By: ###HARRIS MCDONNELL ####S PATHOLOGY TQWPEJKEOG[address] [place] [address], [address]NSMUUEPCSIF % BY MANUAL COUNT2.0 %Low24.0-44.0The [facility] Comment on above:Performed By: ###HARRIS MCDONNELL ####S PATHOLOGY KXWYONSSVO9865[address] [place] [address], [address]LRCRXZZSBVQ ABS BY MANUAL COUNT0.31 K/uLLow1.00-4.80The [facility] SystemComment on above: Performed By: ###HARRIS MCDONNELL ####S PATHOLOGY KDPVZOYYNQ[address]80[address] [place] [address], [address]ELOFQMZYHVARJV % BY MANUAL COUNT8 %High<0The [facility] SystemComment on above:Performed By: ###HARRIS MCDONNELL ####S PATHOLOGY JXYGFYDKII509[address] [place] [address], METAMYELOCYTES ABS BY MANUAL COUNT1.24 K/uLHigh<0.01The [facility] Comment on above:Performed By: ###HARRIS MCDONNELL ####[facility] PATHOLOGY XCZVTDXPGT[address] [place] [address], [address]ZPJRSMAWT % BY MANUAL COUNT1.0 %Low2.0-11.0The [facility] SystemComment on above:Performed By: ###HARRIS MCDONNELL ####[facility] PATHOLOGY YLQAJYSRAY8[address] [place] [address], [address]LXCMLZJPE ABS BY MANUAL COUNT0.16 K/uLLow0.20-1.00The [facility] SystemComment on above:Performed By: ###HARRIS MCDONNELL ####[facility] PATHOLOGY FSLTZXLPGH[address] [place] [address], [address]KMNOBKYIHE % BY MANUAL COUNT7 %High<0The [facility] SystemComment on above:Performed By: ###HARRIS MCDONNELL ####[facility] PATHOLOGY GPFLIXBAPY[address]11[address] [place] [address], 4 MYELOCYTES ABS BY MANUAL COUNT1.09 K/uLHigh<0.01The [facility] Comment on above:Performed By: ###HARRIS MCDONNELL ####[facility] PATHOLOGY ZDFQYSJTVX[address] [place] [address], [address]YHTPMJSFKKJ % BY MANUAL COUNT65.0 %Pokbuv69.0-76.0The [facility] SystemComment on above:Performed By: ###HARRIS MCDONNELL ####S PATHOLOGY HRMYZGNNHF39[address] [place] [address], [address]FRUHSFFBGBM ABS BY MANUAL COUNT10.08 K/uLHigh1.50-8.00The [facility] SystemComment on above:Performed By: ###HARRIS MCDONNELL ####S PATHOLOGY EHFBRTWDAE[address] [place] [address], [address]BXYPWTLQXUFxe NormalThe [facility] SystemComment on above:Performed By: ###HARRIS MCDONNELL ####S PATHOLOGY YQCPLBLFGK495[address] [place] [address], [address]VNTPN % BY MANUAL COUNT4 %Normal<=10The [facility] SystemComment on above:Performed By: #### HARRIS POSEY ####S PATHOLOGY ZJJTLLFATV41977[address] [place] [address], [address]AKZNQ ABS BY MANUAL COUNT0.20 K/uLHigh<0.01The [facility] SystemComment on above:Performed By: #### HARRIS POSEY ####S PATHOLOGY BBHSPBFOJL[address] [place] [address], [address]NPGBG COUNTED TOTAL # IN [id number] [place] [address] SystemComment on above:Performed By: #### HARRIS POSEY ####S PATHOLOGY FSNAEXWNRH0932[address] [place] [address], [address]FKXZVVPRONS % BY MANUAL COUNT7.0 %Low24.0-44.0The [facility] SystemComment on above:Performed By: #### HARRIS POSEY ####S PATHOLOGY PWXPVRQNZN[address]04[address] [place] [address], [address]OTLCWXZOOGL ABS BY MANUAL COUNT0.36 K/uLLow1.00-4.80The [facility] SystemComment on above: Performed By: #### HARRIS POSEY ####S PATHOLOGY NTDRIFFGXJ[address] [place] [address], [address]QLEQEIXIOJY % BY MANUAL COUNT89.0 %High31.0-76.0 The [facility] SystemComment on above:Performed By: #### HARRIS POSEY ####S PATHOLOGY ZIKUFQNOZT[address]89[address] [place] [address], [address]OELJRRWNNVK ABS BY MANUAL COUNT4.54 K/uLNormal1.50-8.00The [facility] SystemComment on above:Performed By: #### HARRIS POSEY ####S PATHOLOGY XYRPIDPWCC[address] [place] [address], [address]ALRGZJPDJYPgqSgdfzkZqp [facility] SystemComment on above:Performed By: #### HARRIS POSEY ####S PATHOLOGY ZBQOUMEQGA304[address] [place] [address], [address]SMJLXZCXOLKYWPdunaj NormalThe [facility] SystemComment on above:Performed By: #### MD TATYIFF ####[facility] PATHOLOGY LFLQSPYDWC[address] [place] [address], PARTIAL THROMBOPLASTIN TIMEon 28-30-6305pKAF Coag (Bld) [Time]25 hFhvljn83-68Tmu [facility] SystemComment on above:Performed By: #### APTT, PT ####[facility] PATHOLOGY BSWYOHQGXJ2235[address] [place] [address], [address]ZKVXQRITOKX TIME AND INRon 77-03-7577TIN Coag (PPP) [Relative time]1.15 {INR}High0.90-1.10 The [facility] SystemComment on above:Performed By: #### APTT, PT ####[facility] PATHOLOGY WEBFTYQUBX[address] [place] [address], [address]ND Coag (PPP) [Time]12.9 sNormal9.7-12.9The [facility] SystemComment on above:Performed By: #### APTT, PT ####[facility] PATHOLOGY DEEKYIMYNF[address] [place] [address], [address]Ikjpgioh Noteson 69-34-3387Jtxamzpbdocfj Authentication Interface Message TextNo[facility] SystemTranscription Authentication Interface Message TextNo[facility] SystemTranscription Authentication Interface Message TextNoUniversity [facility] SystemTYPE AND SCREENon 02-93-3657GMI and Rh group Nom (Bld)Blood group A Rh(D) positiveNormTogus VA Medical Center SystemComment on above:Performed By: #### TS ####[facility] PATHOLOGY XFYZBSLIYD9027[address] [place] [address], [address]ODM and Rh group Nom (Bld)No Previous Results NormalThe [facility] SystemComment on above:Performed By: #### TS ####S PATHOLOGY HZUFGDAGDL0833[address] [place] [address], [address]VPJX INT NegativeNormTogus VA Medical Center SystemComment on above:Performed By: #### TS ####[facility] PATHOLOGY YTPFKKBXVY[address] [place] [address], URINALYSIS WITH REFLEX CULTURE PERFORMABLEon 32-28-0556Qgcnzuw Ql (U)Negative NormalNegativeThe [facility] SystemComment on above:Order Comment: A negative leukocyte [...] UTI around 50%)Performed By: #### C URINE ####[facility] Pltjzknnw[address] [place], [place] [address]#### urinalysiswcul ####[facility] PATHOLOGY [address], [address]Fxyhjav (U) [Mass/Vol]100 mg/dLAbnormalNegativeThe [facility] Comment on above:Order Comment: A negative [...] UTI around 50%)Performed By: #### C URINE ####[facility] Myfmijonq[address] [place], [place] [address]#### urinalysiswcul ####[facility] PATHOLOGY LHGJQZLGWS096[address] [place] [address], [address]KKEDEGGU GWKWBWSLTD9-3Fslrci6-82Wpy [facility] SystemComment on above:Order Comment: A negative leukocyte [...] UTI around 50%)Performed By: #### C URINE ####[facility] Mbvamlgef[address] [place], [place]#### urinalysiswcul ####S PATHOLOGY MBVMCBPFLB[address] [place] [address], [address]JZUFYU PHOSPHATE CRYSTALSModerateNormalThTrumbull Regional Medical Center SystemComment on above:Order Comment: A [...] UTI around 50%)Performed By: #### C URINE ####[address]#### urinalysiswcul ####[facility] PATHOLOGY YPFELOPHZA6970[address] [place] [address], [address]B APPEARTurbidNormalClearCherrington Hospital SystemComment on above:Order Comment: A negative [...] UTI around 50%)Performed By: #### C URINE ####[facility] Wclrvvcil[address] [place], [place] [address]#### urinalysiswcul ####S PATHOLOGY NGXDKBECXN411[address] [place] [address], [address]T BILINegativeNormalNegativeThe [facility] SystemComment on above:Order Comment: A negative leukocyte [...] UTI around 50%)Performed By: #### C URINE ####[facility] Qxzdlkcgv[address] [place], [place] [address]#### urinalysiswcul ####[facility] PATHOLOGY GSXLMVSITK514674 [place] [address], [address]C BLOODSmallAbnormalNegativeThe [facility] SystemComment on above:Order Comment: A negative leukocyte [...] UTI around 50%)Performed By: #### C URINE ####[facility] Hukyvmdtq[address] [place], [place] [address]#### urinalysiswcul ####[facility] PATHOLOGY PXWDWBKGIE0734[address] [place] [address], [address]L COLORLight OrangeNormalColorlessThe [facility] SystemComment on above:Order Comment: A negative leukocyte [...] UTI around 50%)Performed By: #### C URINE ####[facility] Enhrtztbi[address] [place], [place]#### urinalysiswcul ####[facility] PATHOLOGY IGKKLLTOMS[address] [place] [address], [address]E KETONENegativeNormalNegativeCherrington Hospital SystemComment on above:Order Comment: A negative [...] UTI around 50%)Performed By: #### C URINE ####[facility] Dnailmuap[address] [place], [place] [address]#### urinalysiswcul ####[facility] PATHOLOGY URMCKBNVZL2085[address] [place] [address], [address]V LEUKPositiveAbnormalNegativeThe [facility] SystemComment on above:Order Comment: A negative leukocyte [...] testing for pyuria.Performed By: #### C URINE ####[facility] Rhjxdlqll[address] [place], [place] [address]#### urinalysiswcul ####[facility] PATHOLOGY OGBJNZMFOF4642 [place], [address]X MUCOUSPresentNormalThe [facility] SystemComment on above:Order Comment: A negative leukocyte [...] UTI around 50%)Performed By: #### C URINE ####[facility] Sdwdhppmw[address] [place], [place] [address]#### urinalysiswcul ####[facility] PATHOLOGY PGRXURHYUA0799[address] [place] [address], [address]Z NITRITENegativeNormalNegativeThe [facility] SystemComment on above: Order Comment: A negative [...] UTI around 50%)Performed By: #### C URINE ####[facility] Fkzxqpfug[address] [place], [place] [address]#### urinalysiswcul ####[facility] PATHOLOGY YFQTBCYDVD1924[address] [place] [address], [address]A PH8.5High5.0-8.0The [facility] SystemComment on above:Order Comment: A negative leukocyte [...] UTI around 50%)Performed By: #### C URINE ####[facility] [address]lsctwvpr[address] [place], [place]#### urinalysiswcul ####[facility] PATHOLOGY KRSSUQLZDB[address] [place] [address], DGD40-12Vkcmvjij0-6Irn [facility] SystemComment on above:Order Comment: A negative leukocyte [...] UTI around 50%)Performed By: #### C URINE ####[address]#### urinalysiswcul ####[facility] PATHOLOGY NMSJZPMRGB[address] [place] [address], [address]C SG1.028Normal<=1.030The [facility] SystemComment on above:Order Comment: A negative leukocyte [...] UTI around 50%)Performed By: #### C URINE ####[facility] Khrpohrvk[address] [place], [place] [address]#### urinalysiswcul ####S PATHOLOGY CJJNSUPDXB[address] [place] [address], [address]J UROBILINegativeNormalNegativeThe [facility] SystemComment on above: Order Comment: A negative [...] UTI around 50%)Performed By: #### C URINE ####[facility] Qgtmiganb06[address] [place], [place] [address]#### urinalysiswcul ####[facility] PATHOLOGY PQPCXQHYPO[address] [place] [address], [address]F DGE11-76Lexodxpi9-7Iqg [facility] SystemComment on above:Order Comment: A negative leukocyte [...] UTI around 50%)Performed By: #### C URINE ####[facility] Qazenpqog9[address] [place], [place] [address]#### urinalysiswcul ####S PATHOLOGY RTYIAPODWJ563[address] [place] [address], [address]ZFGLZ CULTUREon 00-10-0263Zffbqvys identified Cx Nom (U)C URINE: Positive Culture Report ESCHERICHIA COLI >100,000 CFU/ml Escherichia coli PROVIDENCIA RETTGERI >100,000 CFU/ml Providencia rettgeriNormalThe [facility] SystemComment on above:Order Comment: THIS IS A PRELIMINARY REPORT. Final results will follow. Results of the preliminary report may be modified as additional information becomes available.Performed By: #### C URINE ####[facility] Baxmvbuqq[address] [place], [place]#### urinalysiswcul ####S PATHOLOGY LFKIXSCUYR4334 [place], [address]KNXLcndifWmr [facility] SystemComment on above:Order Comment: THIS IS A PRELIMINARY REPORT. Final results will follow. Results of the preliminary report may be modified as additional information becomes available.Performed By: #### C URINE ####[facility] Asuoqbmyq[address] [place], [place] [address]#### urinalysiswcul ####[facility] PATHOLOGY ANFTGZMLYV39037[address] [place] [address], [address]AG CHEST AP OR PA 1 VIEWon 30-37-2132PQ CHEST AP OR PA 1 VIEWGuthrie [facility]land Medical Center SystemAutomated epithelial cells count in urine sediment (number/area)on 55-89-6123Hepevdpymb cells Auto (Urine sed) [#/Area]NONE SEEN #/LPFNONE/RAREUniversity Hospitals Tripoint Medical CenterAutomated leukocytes count in urine sediment (number/area)on 15-50-4086DHV Auto (Urine sed) [#/Area]0-2 #/HPF 0-2FPremier Health Miami Valley Hospital NorthAutomated urine specific gravity by refractometryon 32-10-7838Rvlfxijt gravity Refractometry automated (U) [Rel density]1.0101.005-1.025[facility] Medical CenterBasophils Auto (Bld) [#/Vol]on 50-34-2307Dhfjlwwnw (Bld) [#/Vol]0.0 10 3/uL0.0-0.1FPremier Health Miami Valley Hospital NorthBasophils/100 WBC Auto (Bld)on 05-87-5571Zqmuuadjy/100 WBC (Bld) 0.2 %0.2-2.0[facility] Medical CenterBilirubin Auto test strip (U) [Mass/Vol]on 97-21-1276Dvuydphyg (U) [Mass/Vol]NegativeNEGATIVEUniversity Hospitals Tripoint Medical CenterCast typing in urine sediment by light microscopyon 12-03-3427Qrofw LM Nom (Urine sed)NONE SEEN #/LPFNONE SEENUniversity Hospitals Tripoint Medical CenterColor Auto (U)on 05-06-1144Hfxkp (U)LT. YELLOWYELLOWUniversity Hospitals Tripoint Medical CenterEosinophils/100 WBC Auto (Bld)on 06-24-2023 Eosinophils/100 WBC (Bld)0.0 %0.9-7.0[facility] Erythrocyte distribution width Auto (RBC) [Ratio]on 99-85-5372Xqdtzyatfpa distribution width (RBC) [Ratio]14.5 %11.0-15.0[facility] Estimated glomerular filtration rate (GFR) non- Americanon 06-24-2023 GFR/1.73 sq M.predicted among non-blacks MDRD (S/P/Bld) [Vol rate/Area] mL/min/{1.73_m2}>=60[facility] Medical CenterGlobulin Calc (S) [Mass/Vol]on 01-99-4431Loewupse (S) [Mass/Vol]3.8 g/dLUniversity Hospitals Tripoint Medical CenterHematocrit Auto (Bld) [Volume fraction]on 37-06-9433Vjgiltblci (Bld) [Volume fraction]41.0 %36.0-48.0[facility] Medical CenterHemoglobin [Mass/volume] in Bloodon 74-75-7811Suyzixmkks (Bld) [Mass/Vol]13.3 g/dL12.0-16.0 [facility] Medical CenterKetones Auto test strip (U) [Mass/Vol]on 58-91-2226Znwrtwq (U) [Mass/Vol]NegativeNEGATIVEUniversity Hospitals Tripoint Medical CenterLaboratory - Chemistry and Chemistry - challengeon 32-43-8275Ddagscp [Mass/Vol]3.9 g/dL3.4-5.0[facility] Medical CenterALP [Catalytic activity/Vol]96 U/O76-323FriegwkulUniversity Hospitals Tripoint Medical CenterALT [Catalytic activity/Vol]24 U/P90-88GulwrwexnUniversity Hospitals Tripoint Medical CenterAST [Catalytic activity/Vol]18 U/B12-20NebatwmlvUniversity Hospitals Tripoint Medical CenterBilirubin [Mass/Vol]0.7 mg/dL0.2-1.0[facility] Medical CenterCalcium [Mass/Vol]9.3 mg/dL 8.5-10.1FPremier Health Miami Valley Hospital NorthChloride [Moles/Vol]104 mmol/L98-107 [facility] Medical CenterCO2 [Moles/Vol]24.2 mmol/L21.0-32.0[facility] Medical CenterCreatinine [Mass/Vol]0.94 mg/dL0.55-1.02[facility] Medical CenterGFR/1.73 sq M.predicted MDRD (S/P/Bld) [Vol rate/Area] mL/min/{1.73_m2}>=60[facility] Medical CenterGlucose [Mass/Vol]208 mg/dL 74-106[facility] Medical CenterLactate [Moles/Vol]1.7 mmol/L0.4-2.0 [facility] Medical CenterLipase [Catalytic activity/Vol]12.0 U/L 16.0-77.0[facility] Medical CenterPotassium [Moles/Vol]3.8 mmol/L3.5-5.1 [facility] Medical CenterProtein [Mass/Vol]7.7 g/dL6.4-8.2FUniversity Hospitals Geauga Medical Centerodium [Moles/Vol]140 mmol/K867-498NcbnyolmfUniversity Hospitals Tripoint Medical CenterUrea nitrogen [Mass/Vol]23.0 mg/dL7.0-18.0[facility] Medical CenterUrea nitrogen/Creatinine [Mass ratio]24.5 mg/mgUniversity Hospitals Tripoint Medical CenterLaboratory - Hematology and Cell countson 64-70-7172Vykxsgpf granulocytes/100 WBC (Bld)0.3 %0.0-0.5FPremier Health Miami Valley Hospital North Laboratory - Microbiology and Antimicrobial susceptibilityOrdered By: Kalli Simons on 51-07-6001Mkvhqnkp identified Cx Nom (U)[facility] Tri[facility] Medical CenterLeukocytes [#/volume] corrected for nucleated erythrocytes in Blood by Automated counon 21-00-8920CVF corrected for nucl RBC Auto (Bld) [#/Vol]8.8 10 3/uL4.0-11.0[facility] Medical CenterLymphocytes Auto (Bld) [#/Vol]on 53-16-6194Wfeiezhyfml (Bld) [#/Vol]0.3 10 3/uL1.2-3.8[facility] Tri[facility] Medical CenterLymphocytes/100 WBC Auto (Bld)on 09-33-4290Wwdfvwdfsih/100 WBC (Bld)3.6 % 20.5-60.0[facility], BeachwoodH Auto (RBC) [Entitic mass]on 31-48-2872VBS (RBC) [Entitic mass]29.6 pg26.7-34.0[facility] Tri[facility] Medical CenterMCHC Auto (RBC) [Mass/Vol]on 13-78-3260WFJF (RBC) [Mass/Vol]32.4 g/dL 29.9-35.2FPremier Health Miami Valley Hospital NorthMCV Auto (RBC) [Entitic vol]on 95-26-9036UGZ (RBC) [Entitic vol]91.1 fL81.0-99.0[facility] Medical CenterMonocytes Auto (Bld) [#/Vol]on 13-72-9147Vaurhtuvr (Bld) [#/Vol]0.2 10 3/uL0.3-0.8[facility] Medical CenterMonocytes/100 WBC Auto (Bld)on 22-55-2090Lzxydvsyd/100 WBC (Bld)2.5 %1.7-12.0[facility] Mucus LM Ql (Urine sed)on 92-18-6642Hgjsj Ql (Urine sed)NONE SEENNONE SEEN [facility] Medical CenterNeutrophils Auto (Bld) [#/Vol]on 06-24-2023 Neutrophils (Bld) [#/Vol]8.2 10 3/uL1.4-6.5FPremier Health Miami Valley Hospital North Neutrophils/100 WBC Auto (Bld)on 07-51-7763Enxmiljqbar/100 WBC (Bld)93.4 % 43.0-75.0[facility] Medical CenterNo Panel Informationon 33-25-7091Maxqc Culture ReflexedYECleveland Clinic Fairview HospitalUrine Microscopic ReviewYESamaritan HospitalEosinophils # (Auto)0.0 10 3/uL0.0-0.7FPremier Health Miami Valley [facility] NorthImmature Granulocyte # (Auto)0.03 10 3/uL0.00-0.03 [facility] CenterTroponin I High Sensitivity9.9 pg/mL4.0-51.3 [facility] CenterComment on above:CUT-OFF POINTS HAVE BEEN ESTABLISHED BASED [...] INFORMATION.Platelet mean volume Auto (Bld) [Entitic vol]on 53-62-0355Qlgocfrh mean volume (Bld) [Entitic vol]9.7 fL9.5-13.5FPremier Health Miami Valley Hospital NorthPlatelets Auto (Bld) [#/Vol] on 32-19-4945Quhszjspq (Bld) [#/Vol]265 10 3/eM409-789HuxnuetrtUniversity Hospitals Tripoint Medical CenterProtein Auto test strip (U) [Mass/Vol]on 11-98-8219Zvpbzkt (U) [Mass/Vol] 100 mg/dLNEG/TRACEUniversity Hospitals Tripoint Medical CenterRBC Auto (Bld) [#/Vol]on 93-94-3289FTH (Bld) [#/Vol]4.50 10 6/uL4.20-5.40Ad[facility] County Hospitalerum or plasma albumin/globulin mass ratioon 90-78-6994Evdfxzr/Globulin [Mass ratio]1.0 {ratio}[facility] County Hospitalerum or plasma anion gap determinationon 96-51-8851Rfdlv gap [Moles/Vol]15.6 mmol/LFUniversity Hospitals Geauga Medical Centerpecific gravity Auto test strip (U) [Rel density]on 06-24-2023 Specific gravity (U) [Rel density]CLEARCLEMetroHealth Main Campus Medical Center Urine bacteria detection by automated methodon 61-75-3588Jobqgywx Auto Ql (U) LARGE #/HPFNONE SEENUniversity Hospitals Tripoint Medical CenterUrine glucose measurement by test strip (mass/volume)on 61-67-2035Jpongck Test strip (U) [Mass/Vol] NegativeNEGATIVEUniversity Hospitals Tripoint Medical CenterUrine hemoglobin detection by automated test stripon 33-08-6526Tbacsiyqjg Auto test strip Ql (U)MODERATE NEGATIVEUniversity Hospitals Tripoint Medical CenterUrine nitrite detection by automated test stripon 03-05-2196Sodazbs Auto test strip Ql (U)TRACENEGATIVEUniversity Hospitals Tripoint Medical CenterNitrite Auto test strip Ql (U)NegativeNEGATIVEUniversity Hospitals Tripoint Medical CenterUrine sediment crystal identification by light microscopy on 89-94-5992Ubvrwvjm LM Nom (Urine sed)None Seen #/HPFNone SeenUniversity Hospitals Tripoint Medical CenterUrine sediment leukocyte count by microscopy (number/high power field)on 56-24-7710GPD LM.HPF (Urine sed) [#/Area]5-10 #/HPFNONE SEEN [facility] CenterUrobilinogen Auto test strip (U) [Mass/Vol]on 32-92-5542Ucuejtsmhgjz Qn (U)0.2 {Ancelmo'U}/dL0.2-1.0[facility] CenterpH Auto test strip (U)on 29-99-9916zV (U)8.5 [pH]5.0-9.0[facility] CenterCT Chest W contrast [place] 27-87-8111VHJAEDLSMP: 1. Indeterminate borderline mediastinal and right hilar [...] any questions regarding this interpretation, please call [phone]. If you are unable to reach us at the number above, please feel free to contact [facility] at [phone].DIVISION OF RADIOLOGY* * *Final Report* * * DATE OF EXAM: Jun 18 2023 10:25AM [facility] 0539 - CT CHEST W IVCON / [...] RESULT: Limitations: None. Lines, tubes, and devices: PSYCH NURSE shunt tubing is noted in the right [...] CT scan report for the abdomen findings. Automotive Drivability Technician (topogram) images: No additional findings. DIVISION OF RADIOLOGYProvider, [facility] [place] - 06/18/2023 * * *Final Report* * * DATE OF EXAM: Jun 18 2023 10:25AM [facility] 0539 - CT CHEST W IVCON / [...] RESULT: Limitations: None. Lines, tubes, and devices: PSYCH NURSE shunt tubing is noted in the right [...] CT scan report for the abdomen findings. Automotive Drivability Technician (topogram) images: No additional findings. IMPRESSION IMPRESSION: [...] any questions regarding this interpretation, please call [phone]. If you are unable to reach us at the number above, please feel free to contact [facility] eRadiology at [phone]. [facility] Kidney WO and W contrast [place] 51-23-7770DPFNGUJJLL: 1. No evidence of new intra-abdominal/pelvic abnormalities [...] any questions regarding this interpretation, please call [phone]. If you are unable to reach us at the number above, please feel free to contact [facility] eRadiology at [phone].DIVISION OF RADIOLOGY* * *Final Report* * * DATE OF EXAM: Jun 18 2023 10:25AM [facility] 0560 - CT UROGRAM WO/W IVCON / [...] pelvic ascites, decreased. The tip of the PSYCH NURSE shunt shunt is adjacent to the sacrum. [...] chest CT performed will be reported separately. Automotive Drivability Technician (topogram) images: No additional findings. DIVISION OF RADIOLOGYProvider, [facility] [place] - 06/18/2023 * * *Final Report* * * DATE OF EXAM: Jun 18 2023 10:25AM [facility] 0560 - CT UROGRAM WO/W IVCON / [...] pelvic ascites, decreased. The tip of the PSYCH NURSE shunt shunt is adjacent to the sacrum. [...] chest CT performed will be reported separately. Automotive Drivability Technician (topogram) images: No additional findings. IMPRESSION IMPRESSION: [...] any questions regarding this interpretation, please call [phone]. If you are unable to reach us at the number above, please feel free to contact [facility] eRadiology at [phone]. [facility] Panel InformationOrdered By: Cc Provider on 06-18-2023 [facility] Panel Informationon 10-77-9385Iumtwckst Study observation (narrative)[facility] HospitalXR Knee - left AP and Lateralon 71-58-1596NWHATCJCRD: 1. Nondisplaced fracture of the patella with [...] any questions regarding this interpretation, please call [phone]. If you are unable to reach us at the number above, please feel free to contact [facility] eRadiology at [phone].DIVISION OF RADIOLOGY* * *Final Report* * * [...] trace joint fluid present DIVISION OF RADIOLOGYProvider, [facility] [place] - 06/18/2023 * * *Final Report* * [...] any questions regarding this interpretation, please call [phone]. If you are unable to reach us at the number above, please feel free to contact [facility] eRadiology at [phone]. [facility] HospitalXR Knee - left AP and LateralOrdered By: Ccf Provider on 86-62-4070Mtlqoylfc ClinicPOSACONAZOLE, SERUMon 69-06-3341Jzcbyupjlyuy [Mass/Vol]2.7 ug/mL0.7 - 3.9 ug/mLCleveland Fairmont Hospital And ClinicC-REACTIVE PROTEIN (CRP)on 16-23-4284OMJ [Mass/Vol]1.7 mg/dLHigh<0.9 mg/dLMercy Health – The Jewish HospitalCB W Auto Differential panel (Bld)on 12-91-6073Kamhratwd (Bld) [#/Vol]0.04 10*3/uL<0.11 k/uLMercy Health – The Jewish HospitalBasophils/100 WBC (Bld)0.6 %[facility] HospitalDifferential cell count method Nom (Bld)AutoCleveland ClinicEosinophils (Bld) [#/Vol]0.08 10*3/uL<0.46 k/uLMercy Health – The Jewish HospitalEosinophils/100 WBC (Bld)1.2 %[facility] Erythrocyte distribution width (RBC) [Ratio]14.5 %11.5 - 15.0 %[facility] Hematocrit (Bld) [Volume fraction]38.2 %36.0 - 46.0 %[facility] HospitalHemoglobin (Bld) [Mass/Vol]12.1 g/dL11.5 - 15.5 g/dLMercy Health – The Jewish HospitalImmature granulocytes (Bld) [#/Vol]<0.10 k/uLMercy Health – The Jewish HospitalImmature granulocytes/100 WBC (Bld)0.2 % [facility] HospitalLymphocytes (Bld) [#/Vol]1.25 10*3/uL1.00 - 4.00 k/uLMercy Health – The Jewish HospitalLymphocytes/100 WBC (Bld)19.4 %[facility] Union HospitalH (RBC) [Entitic mass] 29.4 pg26.0 - 34.0 pgClevelMunicipal Hospital and Granite ManorHC (RBC) [Mass/Vol]31.7 g/dL30.5 - 36.0 g/dLCleveland Clinic Union HospitalV (RBC) [Entitic vol]92.9 fL80.0 - 100.0 fLCleveland ClinicMonocytes (Bld) [#/Vol]0.83 10*3/uL<0.87 k/uLMercy Health – The Jewish HospitalMonocytes/100 WBC (Bld)12.9 %[facility] HospitalNeutrophils (Bld) [#/Vol]4.24 10*3/uL1.45 - 7.50 k/uLMercy Health – The Jewish HospitalNeutrophils/100 WBC (Bld)65.7 %[facility] HospitalNucleated RBC (Bld) [#/Vol]<0.01 k/[facility] Medical CenterNucleated RBC/100 WBC (Bld) [Ratio] 0.0 /100 WBCMercy Health – The Jewish HospitalPlatelet mean volume (Bld) [Entitic vol]9.9 fL9.0 - 12.7 fLClevelfrye regional medical center ClinicPlatelets (Bld) [#/Vol]318 10*3/uL150 - 400 k/uLMercy Health – The Jewish HospitalRBC (Bld) [#/Vol]4.11 10*6/uL3.90 - 5.20 m/uLMercy Health – The Jewish HospitalWBC (Bld) [#/Vol]6.45 10*3/uL3.70 - 11.00 k/uLMercy Health – The Jewish HospitalComprehensive metabolic 2000 panelon 06-11-1624Myqlasf [Mass/Vol]4.3 g/dL3.9 - 4.9 g/dLElma ClinicALP [Catalytic activity/Vol]105 U/L34 - 123 U/LCleveland ClinicALT [Catalytic activity/Vol]20 U/L7 - 38 U/LCleveland ClinicAnion gap [Moles/Vol]11 mmol/L9 - 18 mmol/LCleveland ClinicAST [Catalytic activity/Vol]21 U/L13 - 35 U/LCleveland ClinicBilirubin [Mass/Vol]0.4 mg/dL0.2 - 1.3 mg/dLElma ClinicCalcium [Mass/Vol]10.0 mg/dL8.5 - 10.2 mg/dLElma ClinicChloride [Moles/Vol]104 mmol/L97 - 105 mmol/LCleveland ClinicCO2 [Moles/Vol]28 mmol/L22 - 30 mmol/L [facility] HospitalCreatinine [Mass/Vol]0.67 mg/dL0.58 - 0.96 mg/dLMercy Health – [facility] Estimated Glomerular Filtration Sizb649 mL/min/1.73m>=60 mL/min/1.73mCleveland ClinicGlucose [Mass/Vol]137 mg/wJMbyc43 - 99 mg/dLMercy Health – The Jewish HospitalPotassium [Moles/Vol]4.2 mmol/L3.7 - 5.1 mmol/LCleveland ClinicProtein [Mass/Vol]7.0 g/dL 6.3 - 8.0 g/dLElma ClinicSodium [Moles/Vol]143 mmol/L136 - 144 mmol/L [facility] HospitalUrea nitrogen [Mass/Vol]24 mg/dLHigh7 - 21 mg/dLMercy Health – [facility] Hospital MR Brain WO and W contrast [place] 05-09-2023* * *Final Report* * * DATE OF EXAM: May 09 2023 3:10PM [facility] 0295 - MRI BRAIN WO/W IVCON / [...] juncti (more content not included)...DIVISION OF RADIOLOGYProvider, [facility] [place] - 05/09/2023 * * *Final Report* * * DATE OF EXAM: May 09 2023 3:10PM [facility] 0295 - MRI BRAIN WO/W IVCON / [...] not obtained. Counting refere (more content not included)...[facility] Cervical spine WO and W contrast [place] 05-09-2023* * *Final Report* * * DATE OF EXAM: May 09 2023 3:44PM [facility] 0298 - MRI CERVICAL SPINE [...] Craniocervic (more content not included)...DIVISION OF RADIOLOGYProvider, [facility] [place] - 05/09/2023 * * *Final Report* * * DATE OF EXAM: May 09 2023 3:44PM [facility] 0298 - MRI CERVICAL SPINE [...] were not obtained. Counti (more content not included)...[facility] Lumbar spine W contrast Rem[place] 05-09-2023* * *Final Report* * * DATE OF EXAM: May 09 2023 3:42PM [facility] 0134 - MRI L-SPINE PREOP LOCAL W [...] Craniocerv (more content not included)...DIVISION OF RADIOLOGYProvider, [facility] [place] - 05/09/2023 * * *Final Report* * * DATE OF EXAM: May 09 2023 3:42PM [facility] 0134 - MRI L-SPINE PREOP LOCAL W [...] were not obtained. Coun (more content not included)...[facility] Thoracic spine WO and W contrast [place] 05-09-2023* * *Final Report* * * DATE OF EXAM: May 09 2023 3:44PM LN 0326 - MRI THORACIC SPINE WO/W IVCON [...] Craniocervic (more content not included)...DIVISION OF RADIOLOGYProvider, [facility] [place] - 05/09/2023 * * *Final Report* * [...] were not obtained. Counti (more content not included)...[facility] Informationon 04-44-3329QIGDPVPILA: Interval decreased size of the peripherally enhancing [...] and assume there are 5 lumbar-type vertebrae. Printed Circuit Board Assembler: SUMA Transcribe Date/Time: May 09 2023 4:27P Dictated by : AKANKSHA CHAUDHARY MD This examination was interpreted and the report reviewed and electronically signed by: AKANKSHA CHAUDHARY MD on May 09 2023 5:31PM EST DIVISION OF RADIOLOGYRadiology Study observation (narrative)[facility] ClinicNo Panel InformationOrdered By: Ccf Provider on 49-73-6034Ixflamjff Clinic POSACONAZOLE, SERUMon 88-82-3631Peciunpigiuz [Mass/Vol]3.7 ug/mL0.7 - 3.9 ug/mL [facility]-REACTIVE PROTEIN (CRP)on 27-60-6028DPN [Mass/Vol]<0.9 mg/dL [facility] W Auto Differential panel (Bld)on 94-92-4781Awbbphcdw (Bld) [#/Vol]0.03 10*3/uL<0.11 k/uLMercy Health – The Jewish HospitalBasophils/100 WBC (Bld)0.7 % [facility] HospitalDifferential cell count method Nom (Bld)AutoClevelBlanchard Valley Health System Eosinophils (Bld) [#/Vol]0.08 10*3/uL<0.46 k/uLCleTriHealth Bethesda North HospitalEosinophils/100 WBC (Bld)1.8 %[facility] HospitalErythrocyte distribution width (RBC) [Ratio]13.9 % 11.5 - 15.0 %[facility] HospitalHematocrit (Bld) [Volume fraction]38.4 %36.0 - 46.0 %[facility] HospitalHemoglobin (Bld) [Mass/Vol]12.1 g/dL11.5 - 15.5 g/dLMercy Health – The Jewish HospitalImmature granulocytes (Bld) [#/Vol]<0.10 k/uLMercy Health – The Jewish HospitalImmature granulocytes/100 WBC (Bld)0.2 %[facility] HospitalLymphocytes (Bld) [#/Vol]1.03 10*3/uL1.00 - 4.00 k/uLMercy Health – The Jewish HospitalLymphocytes/100 WBC (Bld)23.1 %[facility] HospitalH (RBC) [Entitic mass]29.4 pg26.0 - 34.0 pgClevelMunicipal Hospital and Granite ManorHC (RBC) [Mass/Vol]31.5 g/dL30.5 - 36.0 g/dLCleveland Clinic Union HospitalV (RBC) [Entitic vol]93.2 fL80.0 - 100.0 fLCleveland ClinicMonocytes (Bld) [#/Vol]0.44 10*3/uL<0.87 k/uL [facility] HospitalMonocytes/100 WBC (Bld)9.9 %[facility] HospitalNeutrophils (Bld) [#/Vol]2.86 10*3/uL1.45 - 7.50 k/uLMercy Health – The Jewish HospitalNeutrophils/100 WBC (Bld)64.3 %[facility] HospitalNucleated RBC (Bld) [#/Vol]<0.01 k/uLMercy Health – The Jewish HospitalNucleated RBC/100 WBC (Bld) [Ratio]0.0 /100 WBCMercy Health – The Jewish HospitalPlatelet mean volume (Bld) [Entitic vol]10.0 fL9.0 - 12.7 fLCleveland ClinicPlatelets (Bld) [#/Vol]325 10*3/uL150 - 400 k/uLElma ClinicRBC (Bld) [#/Vol]4.12 10*6/uL3.90 - 5.20 m/uLMercy Health – The Jewish HospitalWBC (Bld) [#/Vol]4.45 10*3/uL3.70 - 11.00 k/uLMercy Health – The Jewish HospitalComprehensive metabolic 2000 panelon 42-49-4946Adihhrs [Mass/Vol]4.1 g/dL 3.9 - 4.9 g/dLElma ClinicALP [Catalytic activity/Vol]90 U/L34 - 123 U/L Elma ClinicALT [Catalytic activity/Vol]19 U/L7 - 38 U/LCmccullough-hyde memorial hospitaland [facility] Anion gap [Moles/Vol]8 mmol/LLow9 - 18 mmol/LCleveland ClinicAST [Catalytic activity/Vol]19 U/L13 - 35 U/LCleveland ClinicBilirubin [Mass/Vol]0.4 mg/dL0.2 - 1.3 mg/dLElma ClinicCalcium [Mass/Vol]9.5 mg/dL8.5 - 10.2 mg/dLElma ClinicChloride [Moles/Vol]105 mmol/L97 - 105 mmol/LCleveland ClinicCO2 [Moles/Vol]29 mmol/L22 - 30 mmol/LCleveland ClinicCreatinine [Mass/Vol]0.64 mg/dL0.58 - 0.96 mg/dLMercy Health – The Jewish HospitalEstimated Glomerular Filtration Cfhv908 mL/min/1.73m>=60 mL/min/1.73mCleveland [facility] ClinicGlucose [Mass/Vol]143 mg/fIFlbs66 - 99 mg/dLMercy Health – The Jewish HospitalPotassium [Moles/Vol]4.0 mmol/L3.7 - 5.1 mmol/L Elma ClinicProtein [Mass/Vol]6.6 g/dL6.3 - 8.0 g/dLSt. Mary's Medical Center, Ironton Campusodium [Moles/Vol]142 mmol/L136 - 144 mmol/LCleveland ClinicUrea nitrogen [Mass/Vol]16 mg/dL7 - 21 mg/dLMercy Health – The Jewish HospitalESR Westergren method (Bld) [Velocity]on 87-15-7632PYD (Bld) [Velocity]8 mm/h0 - 20 mm/hrMercy Health – The Jewish HospitalHbA1c (Bld)on 67-89-8319Psmdsvu glucose Estimated from glycated hemoglobin (Bld) [Mass/Vol]166 mg/dLMercy Health – The Jewish HospitalHbA1c (Bld) [Mass fraction]7.4 %High4.3 - 5.6 %[facility] HospitalCT Chest W contrast [place] 70-68-0187AYXQNYLOCL: 1. Interval resolution of the previously noted [...] any questions regarding this interpretation, please call [phone]. If you are unable to reach us at the number above, please feel free to contact [facility] eRadiology at [phone].DIVISION OF RADIOLOGY* * *Final Report* * * DATE OF EXAM: Dec 25 2022 10:58AM [facility] 0539 - CT CHEST W IVCON / [...] RESULT: Limitations: None. Lines, tubes, and devices: PSYCH NURSE shunt tubing is noted in the right [...] CT scan report for the abdomen findings. Automotive Drivability Technician (topogram) images: No additional findings. DIVISION OF RADIOLOGYProvider, [facility] [place] - 12/25/2022 * * *Final Report* * * DATE OF EXAM: Dec 25 2022 10:58AM [facility] 0539 - CT CHEST W IVCON / [...] RESULT: Limitations: None. Lines, tubes, and devices: PSYCH NURSE shunt tubing is noted in the right [...] CT scan report for the abdomen findings. Automotive Drivability Technician (topogram) images: No additional findings. IMPRESSION IMPRESSION: [...] any questions regarding this interpretation, please call [phone]. If you are unable to reach us at the number above, please feel free to contact [facility] eRadiology at [phone]. [facility] HospitalCT Kidney WO and W contrast [place] 71-07-9971OFGIRCIOKE: 1. New trace pelvic ascites. 2. 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 Consider interval follow-up or direct visualization. 3. Otherwise no evidence of intra-abdominal/pelvic metastases. 4. Punctate nonobstructing left renal stones. Transcribe Date/Time: Dec 25 2022 4:42P Dictated by: ALEKASNDR KRUEGER MD This examination was interpreted and the report reviewed and electronically signed by: ALEKSANDR KRUEGER MD on Dec 25 2022 10:00PM EST Thank you for allowing us to participate in the care of your patient. Should there be any questions regarding this interpretation, please call [phone]. If you are unable to reach us at the number above, please feel free to contact [facility] eRadiology at [phone].DIVISION OF RADIOLOGY* * *Final Report* * * DATE OF EXAM: Dec 25 2022 10:58AM [facility] 0560 - CT UROGRAM WO/W IVCON / [...] trace pelvic ascites. Interval placement of a PSYCH NURSE shunt shunt is noted with the tip [...] chest CT performed will be reported separately. Automotive Drivability Technician (topogram) images: No additional findings. DIVISION OF RADIOLOGYProvider, [facility] [place] - 12/25/2022 * * *Final Report* * * DATE OF EXAM: Dec 25 2022 10:58AM [facility] 0560 - CT UROGRAM WO/W IVCON / [...] trace pelvic ascites. Interval placement of a PSYCH NURSE shunt shunt is noted with the tip [...] chest CT performed will be reported separately. Automotive Drivability Technician (topogram) images: No additional findings. IMPRESSION IMPRESSION: [...] any questions regarding this interpretation, please call [phone]. If you are unable to reach us at the number above, please feel free to contact [facility] at [phone]. [facility] Panel InformationOrdered By: Ccf Provider on 12-25-2022 [facility] Panel Informationon 15-11-1162Wdhyzcnav Study observation (narrative)[facility] HospitalCT Head WO contraston 80-01-8804VBAGUSQJRZ: 1. RIGHT frontal approach ventriculostomy shunt catheter [...] any questions regarding this interpretation, please call [phone]. If you are unable to reach us at the number above, please feel free to contact [facility] at [phone].DIVISION OF RADIOLOGY* * *Final Report* * * DATE OF EXAM: Nov 15 2022 10:28AM [facility] 0504 - CT BRAIN WO IVCON / [...] soft tissues are unremarkable. DIVISION OF RADIOLOGYProvider, [facility] [place] - 11/15/2022 * * *Final Report* * * DATE OF EXAM: Nov 15 2022 10:28AM [facility] 0504 - CT BRAIN WO IVCON / [...] any questions regarding this interpretation, please call [phone]. If you are unable to reach us at the number above, please feel free to contact [facility] eRadiology at [phone]. [facility] HospitalRadiology Study observation (narrative)[facility] Head WO contrastOrdered By: Ccf Provider on 78-92-1056Hnjsxsrkw ClinicCT BRAIN WO IVCONon 26-40-7313Mkakyxbpn [facility] ClinicCT Head WO contraston 11-37-0158KLDXECYZLN: Right frontal ventricular catheter remains in place [...] any questions regarding this interpretation, please call [phone]. If you are unable to reach us at the number above, please feel free to contact [facility] eRadiology at [phone].DIVISION OF RADIOLOGY* * *Final Report* * * DATE OF EXAM: Aug 16 2022 8:59AM [facility] 0504 - CT BRAIN WO IVCON / [...] mastoids are well aerated. DIVISION OF RADIOLOGYProvider, [facility] [place] - 08/16/2022 * * *Final Report* * * DATE OF EXAM: Aug 16 2022 8:59AM [facility] 0504 - CT BRAIN WO IVCON / [...] any questions regarding this interpretation, please call [phone]. If you are unable to reach us at the number above, please feel free to contact [facility] eRadiology at [phone]. [facility] HospitalRadiology Study observation (narrative)[facility] Head WO contrastOrdered By: Cc Provider on 76-84-8981Dhcdiulgu ClinicCNPNon 98-45-3380CXQIXnnqfewvm (MEPRAD) CHIKIS TOBAR ([id number]) 1965 F Date Time Provider Department 06/08/22 MIK ZAPATA During your visit today, we recorded the following information about you: Mik Zapata MD 06/08/2022 11:25 AM Signed Hospital Medicine Transfer Received page for transfer request from [facility] to [facility]: Chikis Tobar is 57 year old female who presented with DKA and found down. She was initially intubated and treated with insulin drip in the ICU and eventually transferred to the regular floor. While she was being worked up at [facility] she was seen to have thoracic and lumbar lesion suspicious for malignancy. 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 She was seen by oncology and neurology at [facility] recommended transfer to tertiary care facility for further evaluation management. She has history of bladder cancer and has urostomy. Case was discussed with our neurosurgeon Dr. Godwin who agreed to see the patient at [place] but wanted patient to be admitted under [...] Assessed Reason for Visit: Hospital To Hospital [[id number]] Prescriptions as of 06/08/2022 - insulin aspart [...] (more content not included)...NormalMedina HospitalBLOOD GASES BTYon MODEVENTILATORTrinity Health SystemComment on above:Performed By: #### ABG ####[facility] [address] [place], [place] [address]Dr.Grace LeeENS TESTPositiveTrinity Health SystemComment on above:Performed By: #### ABG ####[facility] [address] [place], [place] [address]Dr.Grace BestBase excess Calc (Bld) [Moles/Vol]- 18.55242 mmol/LCritically low-2.0-2.0The [facility]c Medical CenterComment on above: Performed By: #### ABG ####[facility] [address] [place], [place] [address]Dr.Grace BestBIPAP Kindred Hospital DaytonComment on above:Performed By: #### ABG ####[facility] [address] [place], [place] [address]Dr.Grace BestCPAPTrinity Health SystemComment on above:Performed By: #### ABG ####[facility] [address] [place], [place] [address]Dr.Grace BestFIO20.21 % NormalThe Uc Medical CenterComment on above:Performed By: #### ABG ####[facility] [address] [place], [place] [address]Dr.Grace ChangHCO3 (Bld) [Moles/Vol]10.7 mmol/LCritically low22.0-26.0The [facility] Medical CenterComment on above:Performed By: #### ABG ####[facility] [address] [place] [address]Dr.Roxannega BestLPMNormalMain Campus Medical CenterComment on above:Performed By: #### ABG ####[facility] [address] [place] [address]Dr.Grace BestMINUTE URQITR91 LNormalThe Mcbee HospitalComment on above:Performed By: #### ABG ####[facility] Qpntzbjgfh[address] [place], [place] [address]Dr.Grace BestOxygen (Bld) [Partial pressure]108.0 mm[Hg]Critically high80.0-100.0The [facility] Comment on above:Performed By: #### ABG ####[facility] Pneoaqaxcj[address] [place], [place] [address]Dr.Grace BestOxygen saturation in Blood97.0 %Urnpcy17.0-100.0The [facility] CenterComment on above:Performed By: #### ABG ####[facility] Jhpultyejb37[address] [place], [place] [address]Dr. Grace BestPCO230.3 mmHgCritically low35.0-45.0The [facility] CenterComment on above:Performed By: #### ABG ####[facility] Skxtwrznnc6847[address] [place], [place] [address]Dr.Grace BestZdxygYACH0JjpzjpXfoTrinity Health SystemComment on above:Performed By: #### ABG ####[facility] Pkwggxpwch0944[address] [place], [place] [address]Dr.Grace BestpH (Bld)7.157 [pH]Critically low 7.350-7.450The [facility] CenterComment on above:Performed By: #### ABG ####[facility] Lviaryrzcj9[address] [place], [place] [address]Dr. Grace BestPIPNormalThe [facility] CenterComment on above:Performed By: #### ABG ####[facility] Eiwzinnsmg5256[address] [place], [place] [address]Dr. Grace BestPSNoMercy Health Defiance Hospital HospitalComment on above:Performed By: #### ABG ####[facility] Oqzjusjblm224[address] [place] [address]Dr. Grace BestPUNCTURE SITELRTrinity Health SystemComment on above:Performed By: #### ABG ####[facility] Jmzuktqbhu5165 [place] [address]Dr.Roxannega GxpcvKNUW16 bpmTrinity Health SystemComment on above: Performed By: #### ABG ####[facility] Bqswpypocz1154 [place] [address]Dr.Yiga ChangVENT MODEAC/VCTrinity Health SystemComment on above:Performed By: #### ABG ####[facility] Arclclrnsx4240 [place] [address]Dr.Roxannega BestRyajjQT605 MLNormal [facility] CenterComascension [facility] on above:Performed By: #### ABG ####[facility] Vnklnrftqm2802 [place] [address]Dr.Roxannega Chang02 MODEVENTILATORTrinity Health SystemComascension [facility] on above:Performed By: #### ABG ####[facility] Fhoxytkrmt8505 [place] [address]Dr. Roxannega NasirALLENS TESTPositiveMercy Health St. Rita's Medical [facility] on above: Performed By: #### ABG ####[facility] Vgsyevvvhw8277 [place] [address]Dr.Grace NasirBase excess Calc (Bld) [Moles/Vol]- 28.87559 mmol/LCritically low-2.0-2.0The [facility] on above: Performed By: #### ABG ####[facility] Edmysmkqcm3260 [place] [address]Dr.Roxannega BestBIPAP PRESSURETrinity Health SystemComascension [facility] on above:Performed By: #### ABG ####[facility] Ecckzmmnza3231 [place] [address]Dr.Roxannehospital [facility] NasirCPAPTrinity Health SystemComment on above:Performed By: #### ABG ####[facility] Mwijwjovrc0712 [place] [address]Dr.Grace BestFIO240.00 % NormalThe [facility] CenterComment on above:Performed By: #### ABG ####[facility] Nyjleisjjf37[address] [place], [place] [address]Dr.Grace BestHCO3 (Bld) [Moles/Vol]5.9 mmol/LCritically low22.0-26.0The [facility] HospitalComment on above:Performed By: #### ABG ####[facility] Ajhyqbszwc332[address] [place], [place] [address]Dr.Roxannega BestLPMNormalThe [facility]bee HospitalComment on above:Performed By: #### ABG ####[facility] Dbtqalcjnm8776[address] [place], [place] [address]Dr.Grace BestMINUTE [facility] Comment on above:Performed By: #### ABG ####[facility] Hossilluus[address] [place], [place] [address]Dr.Grace NasirOxygen (Bld) [Partial pressure]131.0 mm[Hg]Critically high80.0-100.0The [facility] CenterComment on above:Performed By: #### ABG ####[facility] Axywuyyzsh025[address] [place], [place] [address]Dr.Roxannega NasirOxygen saturation in Blood95.3 %Normal 95.0-100.0The [facility] CenterComment on above:Performed By: #### ABG ####[facility] Qnuaaihyoz8[address] [place], [place] [address]Dr. Roxannega BestScvluABM925.1 gzRbMqbyvd01.0-45.0The [facility] CenterComment on above: Performed By: #### ABG ####[facility] Hcbxeajigv4697[address] [place], [place] [address]Dr.Grace BestRrrraETEU5LvhuehEno[address] [place], [place] [address]Comment on above:Performed By: #### ABG ####[facility] Oyecofrteq3476[address] [place], [place] [address]Dr.Grace BestpH (Bld)6.823 [pH]Critically low 7.350-7.450The [facility] CenterComment on above:Performed By: #### ABG ####[facility] Auglaumcgb1844 [place] [address]Dr. Roxannega ChangPIPNormalThe [facility] CenterComment on above:Performed By: #### ABG ####[facility] Fsegdmenrk9491 [place] [address]Dr. Roxannega [facility] Youngstown HospitalComment on above:Performed By: #### ABG ####[facility] Nnhbjioqde1736 [place] [address]Dr. Roxannega ChangPUNCTURE SITEGerman HospitalComment on above:Performed By: #### ABG ####[facility] Nakgssvpne[address]25[address] [place], [place] [address]Dr.Grace BestRATE16 [facility] Parma Medical CenterComment on above: Performed By: #### ABG ####[facility] Zuxcrvxrhm[address] [place], [place] [address]Dr.Grace BestVENT MODEAC/[facility] John Medical CenterComment on above:Performed By: #### ABG ####[facility] Oqnicaetim[address] [place], [place] [address]Dr.Roxannega BxuvjOU463 MLNormal The [facility] CenterComascension mac[facility] on above:Performed By: #### ABG ####[facility] Eqvxtbounh[address] [place], [place] [address]Dr.Grace BestBNPon 35-87-2868Cafrltbgcxv peptide B (Bld) [Mass/Vol]611.0 pg/mLNormal<=900.0The [facility] CenterComascension [facility] on above:Performed By: #### BMP, CMADM, TSH, BNP ####[facility] Hehgfcirfi654[address] [place], [place] [address]Dr. Grace BestCARDIAC ALY ADMITon 56-43-1550KI [Catalytic activity/Vol]98 U/L Pucgds24-705Off [facility] CenterComment on above:Performed By: #### BMP, CMADM, TSH, BNP ####[facility] Ktqzrgvbpx6974 [place] [address]Dr. Grace BestCK.MB [Mass/Vol]1.93 ng/mLNormal<=3.60The [facility] Comment on above:Performed By: #### BMP, CMADM, TSH, BNP ####[facility] Txxnkyznxb2978 [place] [address]Dr. Grace BestLbnamGHVVIE388.3 pg/mLCritically high4.0-51.3The [facility] CenterComment on above:Result Comment: CUT-OFF POINTS HAVE BEEN ESTABLISHED BASED ON THE FOURTH UNIVERSAL DEFINITIONS OF MYOCARDIALINFARCTION. THE UPPER REFERENCE LIMIT (URL) OF TROPONIN, DEFINED THE 99TH PERCENTILE OFcTnI DISTRIBUTION IN A REFERENCE POPULATION, HAS BEEN CONFIRMED THE DECISION THRESHOLDFOR ME DIAGNOSIS. Performed By: #### BMP, CMADM, TSH, BNP ####[facility] Usrkxtcmcf1690[address] [place], [place] [address]Dr. Grace GszgjASJ301 ng/mLCritically high 9-82The [facility] CenterComment on above:Performed By: #### BMP, CMADM, TSH, BNP ####[facility] Hnwsbwzzlp3937 [place] [address]Dr. Grace BestCBC AUTO DIFFon 52-92-0141AXHS #0.1 103/ulNormal0.0-0.1The [facility] CenterComment on above:Performed By: #### CBC ####[facility] Rcgtgoqpbi185[address] [place], [place] [address]Dr.Roxannega ChangBasophils/100 WBC (Bld)0.5 %Normal0.2-2.0The [facility] CenterComment on above:Performed By: #### CBC ####[facility] Ibksjsller2764[address] [place], [place] [address]Dr.Yilan ChangEO #0.0 103/ulNormal0.0-0.7The [facility] CenterComment on above:Performed By: #### CBC ####[facility] Lzbkiwhnsp3459[address] [place], [place] [address]Dr.Grace ChangEosinophils/100 WBC (Bld)0.1 %Critically low0.9-7.0[facility] CenterComment on above:Performed By: #### CBC ####[facility] Jfxyuaacww316[address] [place], [place] [address]Dr. Grace ChangErythrocyte distribution width (RBC) [Ratio]17.0 %Critically high 11.0-15.0The [facility] HospitalComment on above:Performed By: #### CBC ####[facility] Glvliqaydm794[address] [place], [place] [address]Dr. Roxannega ChangHematocrit (Bld) [Volume fraction]45.6 %Xudzdx44.0-48.0The [facility] CenterComment on above:Performed By: #### CBC ####[facility] Cjmqnarpbv1990[address] [place], [place] [address]Dr.Grace ChangHemoglobin (Bld) [Mass/Vol]12.9 g/yGFmakku28.0-16.0The [facility] CenterComment on above: Performed By: #### CBC ####[facility] Fmjqdjeckx708[address] [place], [place] [address]Dr.Grace ChangIG #0.43 10e3/ulCritically high0.00-0.03 The [facility] CenterComment on above:Performed By: #### CBC ####[facility] Expuhwacyj0840[address] [place], [place] [address]Dr.Roxannega ChangIG % 2.4 %Critically high0.0-0.5The [facility] CenterComment on above:Performed By: #### CBC ####[facility] Mnezpbeypj1290[address] [place], [place] [address]Dr.Roxannega ChangLYMPH #2.9 103/ulNormal1.2-3.8The [facility] CenterComment on above:Performed By: #### CBC ####[facility] Prwsxctafz7078[address] [place], [place] [address]Dr.Roxannega ChangLymphocytes/100 WBC (Bld)16.1 % Critically low20.5-60.0The [facility] CenterComment on above:Performed By: #### CBC ####[facility] Orhxtttayh[address] [place], [place] [address]Dr. Grace BestMANUAL DIFF REQNONormalThe Mcbee HospitalComment on above: Performed By: #### CBC ####[facility] Oqgypzffmk360[address] [place], [place] [address]Dr.Grace BestH (RBC) [Entitic mass]30.4 pgNormal 26.7-34.0The [facility] HospitalComment on above:Performed By: #### CBC ####[facility] Aybcyylvwx3350[address] [place], [place] [address]Dr. Grace BestHC (RBC) [Mass/Vol]28.3 g/dLCritically low29.9-35.2The [facility] CenterComment on above:Result Comment: 1+ hypochromasiaPerformed By: #### CBC ####[facility] Laesucjwdf69[address] [place], [place] [address]Dr. Grace BestV (RBC) [Entitic vol]107.5 fLCritically high81.0-99.0The [facility] CenterComment on above:Result Comment: 1+ macrocytosisPerformed By: #### CBC ####[facility] Glsnmsmikj5586[address] [place], [place] [address]Dr. Grace NasirMONO #0.6 103/ulNormal0.3-0.8The [facility] CenterComment on above: Performed By: #### CBC ####[facility] Yviqpjivbd455[address] [place], [place] [address]Dr.Roxannega BestMonocytes/100 WBC (Bld)3.1 %Normal 1.7-12.0The [facility] CenterComment on above:Performed By: #### CBC ####[facility] Ofgclvqcva7[address] [place], [place] [address]Dr. Grace NasirNEUT #14.1 103/ulCritically high1.4-6.5The [facility] HospitalComment on above:Performed By: #### CBC ####[facility] Ppkbpobbev30[address] [place], [place] [address]Dr.Roxannega BestNeutrophils/100 WBC (Bld)77.8 % Critically high43.0-75.0The [facility] CenterComment on above:Performed By: #### CBC ####[facility] Vdnhtgqozi9737 [place] [address]Dr. Grace BestPlatelet mean volume (Bld) [Entitic vol]9.6 fLNormal9.5-13.5The [facility] CenterComment on above:Performed By: #### CBC ####[facility] Cgqjjesqxj[address] [place], [place] [address]Dr.Grace BestPLT607 103/ul Critically aral830-744Fus [facility] CenterComment on above:Performed By: #### CBC ####[facility] Kdtsaodftu3686[address] [place], [place] [address]Dr. Grace BestRBC4.24 106/ulNormal4.20-5.40The [facility] on above: Performed By: #### CBC ####[facility] Tgblzaeyhe7475[address] [place], [place] [address]Dr.Grace BestWBC18.2 103/ulCritically high4.0-11.0The [facility] CenterComascension [facility] on above:Performed By: #### CBC ####[facility] Uxjgyqfhbl7[address] [place], [place] [address]Dr.Grace BestCT CSPINE WO CONon 48-36-8367KL CSPINE WO CONNormalMain Campus Medical CenterCT STROKE HEAD WOon 70-08-3307AH STROKE HEAD WONormalMain Campus Medical CenterCULTURE BLOODon 05-27-2022 Microscopic examination of blood, cultureCulture Observations: NO GROWTH AT 5 DAYS.NormalThe [facility] CenterComment on above:Performed By: #### BLDCX2 ####[facility] Cfuvhhqdvk7056[address] [place], [place] [address]Dr. Grace BestPerformed By: #### BLDCX1 ####[facility] Ztzmikexuy[address] [place], [place] [address]Dr. Grace BestCovid-19 PCR (CVDTBH)on 53-45-5459JMIX-CoV-2 (COVID-19) RNA LOUISE+probe Ql (Unsp spec)Not detectedNormalNOT DETECTEDThe Mcbee HospitalComment on above:Result Comment: When diagnostic testing is [...] for this test is supported by the Social Worker Assistant of Health and Human Service's declaration that [...] no longer be used).Performed By: #### CVDTB ####[facility] Tljxfhoanh[address] [place] [address]t. Roxannelan ChangER URINE PROFILEon 07-94-4549Mrspsaazj Ql (U)NegativeNormal NEGATIVEMain Campus Medical CenterComment on above:Performed By: #### SIMÓN MCDANIEL ####[facility] Ugziyqstna9414 [place], [place]Dr. Yilan ChangClarity (U)CLEARNormalCLEARMain Campus Medical CenterComment on above: Performed By: ###SIMÓN SHARP ####[facility] Jgoebbnjvq[address] [place], [place] [id number]. Yilan ChangColor (U)LT. YELLOWNormalYELLOWMain Campus Medical CenterComment on above:Performed By: #### SIMÓN MCDANIEL ####[facility] Yscchrvdyv[address] [place], [place] [id number]. Grace ChangERUAHD A micrscopic examination will be performed if indicated.NormalMain Campus Medical CenterComment on above:Performed By: #### SIMÓN MCDANIEL ####[facility] Rnfpfnwies[address] [place], [place] [address]Dr. Yilan ChangGlucose Ql (U) 1000 mg/dlAbnormalNEGATIVEThe [facility] CenterComment on above:Performed By: #### SIMÓN MCDANIEL ####[facility] Fheyespwod8494 [place] [id number]. Yilan ChangHemoglobin Ql (U)SMALLAbnormalNEGATIVEThe [facility] CenterComment on above:Performed By: #### SIMÓN MCDANIEL ####[facility] Ascjvsbsoy7172 [place] [phone]. Yilan ChangKetones Ql (U) 40 mg/dlAbnormalNEGATIVEThe [facility] CenterComment on above:Performed By: #### SIMÓN MCDANIEL ####[facility] Puejpkagez[address] [place], [place] [address]Dr. Yilan ChangLEUKOCYTESNegativeNormalNEGATIVEMain Campus Medical CenterComment on above:Performed By: #### SIMÓN MCDANIEL ####[facility] Xeirphcuax[address] [place], [place] [address]Dr. Yilan ChangNitrite Ql (U)NegativeNormal NEGATIVEMain Campus Medical CenterComment on above:Performed By: #### SIMÓN MCDANIEL ####[facility] Mbaolegxtp[address] [place], [place] [address]Dr. Yilan ChangpH (U)6.0 [pH]Normal5-9Main Campus Medical CenterComment on above: Performed By: #### SIMÓN MCDANIEL ####[facility] Bxzvtbwfhn5852 [place] [phone]. Yilan ChangProtein (U) [Mass/Vol]30 mg/dLAbnormal NEGATIVE/ TRACEThe [facility] CenterComment on above:Performed By: #### SIMÓN MCDANIEL ####[facility] Lrskrjsoor[address] [place], [place] [address]Dr. Yilan ChangSPEC GRAVITY1.343Yznixd1.005-<=1.025The [facility] Comment on above:Performed By: #### SIMÓN MCDANIEL ####[facility] Aznbhfcord5065 [place], [place]Dr. Roxannega NasirUR MICRO IND INDICATEDNoKettering Health Main CampusComment on above:Performed By: #### SIMÓN MCDANIEL ####[facility] Cqtnzlggvu4208 [place] [address]Dr. Grace ChangUrobilinogen Qn (U)0.2 {Ancelmo'U}/dLNormal0.2 - 1.0The [facility] CenterComment on above:Performed By: #### DEL MCDANIELRO ####[facility] Vseulxxzqv[address] [place], [place] [address]Dr. Grace Best LACTATE/LACTIC ACIDon 22-60-5887Tsotzas [Moles/Vol]8.6 mmol/LCritically high 0.4-1.9[facility] Campus Medical CenterComment on above:Performed By: #### LACT ####[facility] Sxdlucdrpn47[address] [place], [place] [address]Dr. Grace ChangPOINT OF CARE GLUCOSEon 47-46-0959KCDIPUW>600Critically huwd20-851Mfr [facility] CenterComment on above:Result Comment: Result Not ConfirmedPerformed By: #### POCGLUC ####[facility] Zkzulbdcuq7[address] [place], [place] [address]Dr. Grace NasirPROF CHEM 8 (BAS METB)on 28-34-0768Bewph gap [Moles/Vol]45.0 mmol/LNormalThe [facility] CenterComment on above:Performed By: #### BMP, CMADM, TSH, BNP ####[facility] Dmuojixqgn64[address] [place], [place] [address]Dr. Grace ChangCalcium [Mass/Vol]10.7 mg/dLCritically high8.5-10.1The [facility] CenterComment on above:Performed By: #### BMP, CMADM, TSH, BNP ####[facility] Nnxfksidkk6224 [place] [address]Dr. Grace ChangChloride [Moles/Vol]96 mmol/LCritically uad41-218Xuf [facility] CenterComment on above:Performed By: #### BMP, CMADM, TSH, BNP ####[facility] Ncynsucxzx6071 [place] [address]Dr. Yilan ChangCO2 [Moles/Vol]mmol/LCritically low21.0-32.0The [facility] Comment on above:Performed By: #### BMP, CMADM, TSH, BNP ####[facility] Waraautsps9969 [place] [address]Dr. Yilan ChangCreatinine [Mass/Vol]1.57 mg/dLCritically high0.55-1.02The [facility] CenterComment on above:Performed By: #### BMP, CMADM, TSH, BNP ####[facility] Gkddzqdoyi5076 [place] [address]Dr. Yilan ChangEGFR-AF GYXPSYXQ37 mL/min/1.14g6Tgxiajftwt low>=60The [facility] CenterComment on above: Performed By: #### BMP, CMADM, TSH, BNP ####[facility] Hyzdtyjwno[address] [place], [place] [address]Dr. Yilan ChangEGFR-NON AF ZUGVLIVO26 mL/min/1.19i9Ofbvzjsylo low>=60The [facility] CenterComment on above:Performed By: #### BMP, CMADM, TSH, BNP ####[facility] Alkpxscaqv5480 [place] [address]Dr. Yilan ChangGlucose [Mass/Vol]1210 mg/dLCritically wjoh52-073Pnz [facility] CenterComment on above:Performed By: #### BMP, CMADM, TSH, BNP ####[facility] Kuzghdbjfb25[address] [place], [place] [address]Dr. Yilan ChangPotassium [Moles/Vol]4.8 mmol/LNormal3.5-5.1The [facility] CenterComment on above:Performed By: #### BMP, CMADM, TSH, BNP ####[facility] Tymsbbmouy[address] [place], [place] [address]Dr. Yilan Best Sodium [Moles/Vol]140 mmol/BKwnquy347-604Pvc [facility] CenterComment on above: Performed By: #### BMP, CMADM, TSH, BNP ####[facility] Wqdtgvsnhx3421 [place] [address]Dr. Grace ChangUrea nitrogen [Mass/Vol]45.0 mg/dLCritically high7.0-18.0[facility] [place] on above:Performed By: #### BMP, CMADM, TSH, BNP ####[facility] Zobcozwbve4701 [place] [address]Dr. Grace ChangUrea nitrogen/Creatinine [Mass ratio] 28.7 mg/mgNoKettering Health Main CampusComment on above:Performed By: #### BMP, CMADM, TSH, BNP ####[facility] Ralouzwlrl4592 [place] [address]Dr. Grace BestPROTIMEon 16-23-6170PZQ Coag (PPP) [Relative time]0.94 {INR}NormalThe [facility] CenterComment on above:Performed By: #### PTT, PT ####[facility] Vsqtkdhzeg[address] [place], [place] [address]Dr. Grace BestINR GUIDELINESSEE BELOWTrinity Health SystemComment on above: Result Comment: DESIRED INR: 2.0 - 3.0 CONDITIONS NOT LISTED BELOW 2.5 - 3.5 FOR PROSTHETIC HEART VALVE REPLACEMENT 2.5 - 3.5 RECURRENT THROMBOSISPerformed By: #### PTT, PT ####[facility] Ivikycegob[address] [place], [place] [address]Dr. Grace ChangPT Coag (PPP) [Time]10.0 sNormal9.0-11.6The [facility] CenterComment on above:Performed By: #### PTT, PT ####[facility] Ldzrbxfnkr64[address] [place], [place] [address]Dr. Grace BestPTTon 02-12-2448zCQD Coag (Bld) [Time]32.1 pNxiscc19.3-36.2The [facility] Comment on above:Performed By: #### PTT, PT ####[facility] Vvvlkdrasr[address] [place], [place] [address]Dr. Grace BestTSHon 38-99-0111LLA8.373 uIU/mLNormal0.358-3.740The [facility] CenterComment on above:Performed By: #### BMP, CMADM, TSH, BNP ####[facility] Ccqcznalci0364 [place] [address]Dr. Grace BestURINE MICROSCOPIC ONLYon 05-27-2022 BACTERIANONE SEENNormalNONE SEENMain Campus Medical CenterComment on above:Performed By: #### VIOLETA UMICRO ####[facility] Cvohqtqumx6489 [place] [address]Dr. Grace BestBacteria identified Cx Nom (U)NOT INDICATEDNormalThNewark HospitalComment on above:Performed By: #### VIOLETA ICRO ####[facility] Vttursqzux4842 [place] [address]Dr. Grace ChangCASTNONE SEENNormalNONE SEENMain Campus Medical CenterComment on above:Performed By: #### TOM MCDANIELICRO ####[facility] Askehjjkco8989 [place] [address]Dr. Grace BestCrystals LM Nom (Urine sed)NONE SEENNormalNONE SEENMain Campus Medical CenterComment on above:Performed By: #### TOM MCDANIELICRO ####[facility] Xwfxaagsle9210 [place] [address]Dr. Grace ChangEpithelial cells LM Ql (Urine sed)RARENormalNONE SEEN /RARE The [facility] CenterComment on above:Performed By: #### VIOLETA UMICRO ####[facility] Azvflhowln0097 [place] [address]Dr. Grace ChangMUCOUSNONE SEENNormalNONE SEENMain Campus Medical CenterComascension [facility] on above: Performed By: #### VIOLETA UMICRO ####[facility] Waltbrfzjr2146 [place] [address]Dr. Grace BestRBCNONE SEENAbnormal0-2The [facility] CenterComment on above:Performed By: #### VIOLETA UMICRO ####[facility] Xmoqajueiw8721 [place] [address]Dr. Yilan ChangWBC0-2Abnormal NONE SEENThe [facility] CenterComment on above:Performed By: #### SIMÓN MCDANIEL ####[facility] Jonqynsfsy[address] [place], [place] [id number]. Yilan ChangXR CHEST 1 Von 42-67-5697RU CHEST 1 VNormalThe [facility] CenterXR CHEST 1 VNormalMain Campus Medical CenterXR PELVIS 1_2 VIEWSon 52-38-5625MD PELVIS 1_2 VIEWSNormalThe [facility] CenterCBC AUTO DIFFon 79-36-7057BPSQ #0.0 103/ul Normal0.0-0.1The [facility] CenterComment on above:Performed By: #### CBC ####[facility] Hcsisdjjeb8[address] [place], [place] [address]Dr. Yilan ChangBasophils/100 WBC (Bld)0.1 %Critically low0.2-2.0The [facility] CenterComment on above:Performed By: #### CBC ####[facility] Lnlxbauajd72[address] [place], [place] [address]Dr.Yilan ChangEO #0.0 103/ul Normal0.0-0.7The [facility] CenterComment on above:Performed By: #### CBC ####[facility] Cdkqjfwnri[address] [place], [place] [address]Dr. Yilan ChangEosinophils/100 WBC (Bld)0.3 %Critically low0.9-7.0The [facility] CenterComment on above:Performed By: #### CBC ####[facility] Tcbwpxmlgz70[address] [place], [place] [address]Dr.Yilan ChangErythrocyte distribution width (RBC) [Ratio]16.1 %Critically high11.0-15.0The [facility] CenterComment on above:Performed By: #### CBC ####[facility] Rwtczhvocd[address] [place], [place] [address]Dr.Yilan ChangHematocrit (Bld) [Volume fraction]39.0 %Vbedfy42.0-48.0The [facility] CenterComment on above:Performed By: #### CBC ####[facility] Sciluelbui9437 [place] [address]Dr.Grace ChangHemoglobin (Bld) [Mass/Vol]11.7 g/dL Critically low12.0-16.0The [facility] CenterComment on above:Performed By: #### CBC ####[facility] Knhysdtdqs[address] [place], [place] [address]Dr. Roxannelan ChangIG #0.03 10e3/ulNormal0.00-0.03The [facility] CenterComment on above: Performed By: #### CBC ####[facility] Agqpxdhxej87[address] [place], [place] [address]Dr.Grace ChangIG %0.4 %Normal0.0-0.5The [facility] CenterComment on above:Performed By: #### CBC ####[facility] Asjjfdvgss[address] [place], [place] [address]Dr.Grace ChangLYMPH #1.3 103/ulNormal1.2-3.8The [facility] CenterComment on above:Performed By: #### CBC ####[facility] Opivixhkce17[address] [place], [place] [address]Dr. Grace BestLymphocytes/100 WBC (Bld)18.7 %Critically low20.5-60.0The [facility] CenterComment on above:Performed By: #### CBC ####[facility] Nhqkvxuadn[address] [place], [place] [address]Dr.Grace BestMANUAL DIFF REQ NONormalThe [facility] CenterComment on above:Performed By: #### CBC ####[facility] Ocbkimwzry[address] [place], [place] [address]Dr. Grace NasirMCH (RBC) [Entitic mass]28.7 iwPadmoj13.7-34.0The [facility] Comment on above:Performed By: #### CBC ####[facility] [address]kvdtaolyb[address] [place], [place] [address]Dr.Grace NasirMCHC (RBC) [Mass/Vol]30.0 g/dL Xhrywu29.9-35.2The [facility] CenterComment on above:Performed By: #### CBC ####[facility] [address] [place] [address]Dr. Grace BestMCV (RBC) [Entitic vol]95.8 pXBjpxzn24.0-99.0[facility] Comment on above:Performed By: #### CBC ####[facility] [address] [place], [place] [address]Dr.Grace BestMONO #0.5 103/ulNormal0.3-0.8 [facility] CenterComment on above:Performed By: #### CBC ####[facility] [address] [place], [place] [address]Dr.Grace Best Monocytes/100 WBC (Bld)7.5 %Normal1.7-12.0The [facility] CenterComment on above: Performed By: #### CBC ####[facility] [id number] [place], [place] [address]Dr.Grace NasirNEUT #5.2 103/ulNormal1.4-6.5The [facility] Medical CenterComment on above:Performed By: #### CBC ####[facility] Ztogaymujy[address] [place], [place] [address]Dr.Grace BestNeutrophils/100 WBC (Bld)73.0 %Tpmgzj94.0-75.0The [facility] Systemment on above:Performed By: #### CBC ####[facility] Jfjafegvvk[address] [place], [place] [address]Dr.Grace BestPlatelet mean volume (Bld) [Entitic vol]9.9 fLNormal9.5-13.5 The [facility] CenterComment on above:Performed By: #### CBC ####[facility] Gtujpepgoq[address] [place], [place] [address]Dr.Roxannega VnfaiRSK786 103/qyApjxla728-694Fgb [facility] CenterComment on above:Performed By: #### CBC ####[facility] Upsyqxqbwf64[address] [place], [place] [address]Dr. Grace BestRBC4.07 106/ulCritically low4.20-5.40The [facility] HospitalComment on above:Performed By: #### CBC ####[facility] Aydquueapf[address] [place], [place] [address]Dr.Grace ChangWBC7.1 103/ulNormal4.0-11.0The [facility] CenterComment on above:Performed By: #### CBC ####[facility] Duoyteidol[address] [place], [place] [address]Dr.Grace BestPOINT OF CARE GLUCOSEon 68-09-2309Crpqgbs [Mass/Vol]370 mg/dLCritically daiu01-013Tpu [facility] CenterComment on above:Performed By: #### POCGLUC ####[facility] Uswtgfrral3[address] [place], [place] [address]Dr. Grace ChangGlucose [Mass/Vol]305 mg/dLCritically lneb15-996Jhq [facility] CenterComment on above: Performed By: #### POCGLUC ####[facility] Zmscncstsl4[address] [place], [place] [address]Dr. Grace ChangPROF 14(COMP METB)on 84-41-3302Ubcxvqd [Mass/Vol]2.2 g/dLCritically low3.4-5.0The [facility] CenterComment on above: Performed By: #### CMP ####[facility] Xgminnscri6[address] [place], [place] [address]Dr.Grace ChangAlbumin/Globulin [Mass ratio]0.7 {ratio} NormalThe [facility] Medical CenterComment on above:Performed By: #### CMP ####[facility] Sjpzzubkjw1716[address] [place], [place] [address]Dr.Roxannelan ChangALP [Catalytic activity/Vol]78 U/XScnoms41-361Pog [facility] CenterComment on above: Performed By: #### CMP ####[facility] Hapjtofljb3420[address] [place], [place] [address]Dr.Roxannelan ChangALT [Catalytic activity/Vol]49 U/LNormal 14-59The [facility] CenterComment on above:Performed By: #### CMP ####[facility] Kcrjfezpib0[address] [place], [place] [address]Dr.Yilan ChangAnion gap [Moles/Vol]9.7 mmol/LNormalThe [facility] CenterComment on above:Performed By: #### CMP ####[facility] Yjqrublowj8040[address] [place], [place] [address]Dr.Yiga ChangAST [Catalytic activity/Vol]47 U/LCritically dqqh11-20Mko [facility] CenterComment on above:Performed By: #### CMP ####[facility] Nbpziblgpr7[address] [place], [place] [address]Dr.Yiga ChangBilirubin [Mass/Vol]0.4 mg/dLNormal0.2-1.0The [facility] CenterComment on above:Performed By: #### CMP ####[facility] Eelkckcwnn7[address] [place], [place] [address]Dr.Yilan ChangCalcium [Mass/Vol]8.6 mg/dLNormal8.5-10.1The [facility] CenterComment on above:Performed By: #### CMP ####[facility] Lsmljclztd[address] [place], [place] [address]Dr.Yilan ChangChloride [Moles/Vol]101 mmol/MRrgqhe39-073Pwj [facility] CenterComment on above:Performed By: #### CMP ####[facility] Omtbhnuuiv[address] [place], [place] [address]Dr.Yilan ChangCO2 [Moles/Vol]26.3 mmol/VLmauhe44.0-32.0The [facility] CenterComment on above:Performed By: #### CMP ####[facility] Uxypiynvyd8697[address] [place], [place] [address]Dr.Yilan ChangCreatinine [Mass/Vol]0.54 mg/dLCritically low0.55-1.02The [facility] CenterComment on above:Performed By: #### CMP ####[facility] Vbofjxnkzw104[address] [place], [place] [address]Dr.Yilan ChangEGFR-AF EGYPTIAN>60Normal>=60The [facility] CenterComment on above:Performed By: #### CMP ####[facility] Cwgwbavjyf8309[address] [place], [place] [address]Dr.Yilan ChangEGFR-NON AF EGYPTIAN>60Normal>=60The [facility] CenterComment on above:Performed By: #### CMP ####[facility] Hsqpbdhojp[address] [place], [place] [address]Dr. Roxannelan ChangGlobulin (S) [Mass/Vol]3.0 g/dLNormHenry County HospitalComment on above:Performed By: #### CMP ####[facility] Kuvasnecaz1734[address] [place], [place] [address]Dr.Yilan ChangGlucose [Mass/Vol]284 mg/dLCritically rogc86-990Tyx [facility] CenterComment on above:Performed By: #### CMP ####[facility] Kuvghanoxb7540[address] [place], [place] [address]Dr. Yilan ChangPotassium [Moles/Vol]4.0 mmol/LNormal3.5-5.1The [facility] Comment on above:Performed By: #### CMP ####[facility] Ckwxqhgptt436[address] [place], [place] [address]Dr.Yilan ChangProtein [Mass/Vol]5.2 g/dL Critically low6.4-8.2The [facility] CenterComment on above:Performed By: #### CMP ####[facility] Ypjfysftxm[address] [place], [place] [address]Dr. Yilan ChangSodium [Moles/Vol]133 mmol/LCritically qjv598-056Xgn [facility] CenterComment on above:Performed By: #### CMP ####[facility] Junqyohudc338[address] [place], [place] [address]Dr.Yilan ChangUrea nitrogen [Mass/Vol]20.0 mg/dLCritically high7.0-18.0The [facility] CenterComment on above:Performed By: #### CMP ####[facility] Dfnfmbllub1639[address] [place], [place] [address]Dr.Yilan ChangUrea nitrogen/Creatinine [Mass ratio] 37.0 mg/mgNormalThNewark HospitalComment on above:Performed By: #### CMP ####[facility] Ktvjfdesap644[address] [place], [place] [address]Dr. Yilan ChangCBC AUTO DIFFon 51-84-2193CICG #0.0 103/ulNormal0.0-0.1The [facility] CenterComment on above:Performed By: #### CBC ####[facility] Mbdqtqywbr[address] [place], [place] [address]Dr.Grace ChangBasophils/100 WBC (Bld)0.2 %Normal0.2-2.0The [facility] CenterComment on above:Performed By: #### CBC ####[facility] Gubkquvxgh5905[address] [place], [place] [address]Dr.Yilan ChangEO #0.0 103/ulNormal0.0-0.7The [facility] CenterComment on above:Performed By: #### CBC ####[facility] Prkfpqtvtk1866[address] [place], [place] [address]Dr.Grace ChangEosinophils/100 WBC (Bld)0.0 %Critically low0.9-7.0The [facility] CenterComment on above:Performed By: #### CBC ####[facility] Yfnrzdrkhc5426[address] [place], [place] [address]Dr. Grace ChangErythrocyte distribution width (RBC) [Ratio]16.4 %Critically high 11.0-15.0The [facility] CenterComment on above:Performed By: #### CBC ####[facility] Uqqjxpvxtl8[address] [place], [place] [address]Dr. Grace ChangHematocrit (Bld) [Volume fraction]35.6 %Critically low36.0-48.0The [facility] CenterComment on above:Performed By: #### CBC ####[facility] Oxfjlmklzi7438[address] [place], [place] [address]Dr.Grace ChangHemoglobin (Bld) [Mass/Vol]11.0 g/dLCritically low12.0-16.0The [facility] CenterComment on above:Performed By: #### CBC ####[facility] Guljqlhfld9704[address] [place], [place] [address]Dr.Grace ChangIG #0.03 10e3/ulNormal0.00-0.03The [facility] HospitalComment on above:Performed By: #### CBC ####[facility] [address] [place] [address]Dr.Grace BestIG %0.4 %Normal 0.0-0.5The [facility] CenterComment on above:Performed By: #### CBC ####[facility] [address]dsad[address] [place] [address]Dr.Grace BestLYMPH #0.9 103/ulCritically low1.2-3.8The [facility] CenterComment on above:Performed By: #### CBC ####[facility] Cpigwqdigz2906[address] [place], [place] [address]Dr.Grace BestLymphocytes/100 WBC (Bld)11.5 %Critically low20.5-60.0 The [facility] CenterComment on above:Performed By: #### CBC ####[facility] Tstvxwedai[address] [place], [place] [address]Dr.Grace BestMANUAL DIFF REQNONormalThe [facility] CenterComment on above:Performed By: #### CBC ####[facility] Dewofrtyii[address] [place], [place] [address]Dr. Grace BestAR[facility] (RBC) [Entitic mass]29.4 zbAelqnz52.7-34.0[facility] Comment on above:Performed By: #### CBC ####[facility] Sgrvpbzwyr[address] [place], [place] [address]Dr.Grace BestHC (RBC) [Mass/Vol]30.9 g/dL Jvseqx88.9-35.2[facility] CenterComment on above:Performed By: #### CBC ####[facility] Iwbjqkmftq797[address] [place], [place] [address]Dr. Grace BestV (RBC) [Entitic vol]95.2 mJDnnnzo40.0-99.0[facility] Comment on above:Performed By: #### CBC ####[facility] Pbdskvwclv4301[address] [place], [place] [address]Dr.Grace BestMONO #0.6 103/ulNormal0.3-0.8 The [facility] CenterComment on above:Performed By: #### CBC ####[facility] Kyqptyzkzl9915[address] [place], [place] [address]Dr.Grace Best Monocytes/100 WBC (Bld)7.0 %Normal1.7-12.0The [facility] CenterComment on above: Performed By: #### CBC ####[facility] Asaprqxatq3117[address] [place], [place] [address]Dr.Grace BestNEUT #6.5 103/ulNormal1.4-6.5The [facility] CenterComment on above:Performed By: #### CBC ####[facility] Fzpelcnjax4205[address] [place], [place] [address]Dr.Grace BestNeutrophils/100 WBC (Bld)80.9 %Critically high43.0-75.0The [facility] CenterComment on above: Performed By: #### CBC ####[facility] Sgymzefdpx9427[address] [place], [place] [address]Dr.Grace BestPlatelet mean volume (Bld) [Entitic vol] 9.9 fLNormal9.5-13.5The [facility] CenterComment on above:Performed By: #### CBC ####[facility] Owztsrqzee5535[address] [place], [place] [address]Dr. Grace MpgnpXDM382 103/vpLxvkjo343-329Rfy [facility] CenterComment on above: Performed By: #### CBC ####[facility] Tixnnxothk[address] [place], [place] [address]Dr.Grace ChangRBC3.74 106/ulCritically low4.20-5.40The [facility] CenterComment on above:Performed By: #### CBC ####[facility] Jxcjesrfzu3656[address] [place], [place] [address]Dr.Grace BestWBC8.0 103/ul Normal4.0-11.0The [facility] CenterComment on above:Performed By: #### CBC ####[facility] Khkfxdsrdr6216[address] [place], [place] [address]Dr. Grace BestCULTURE URINEon 40-99-6105MZLHFLW URINENormalThe [facility] Comment on above:Performed By: #### URCX ####[facility] [address] [place] [address]Dr. Grace ChangPOINT OF CARE GLUCOSEon 22-25-9246Vgkpvbx [Mass/Vol]214 mg/dLCritically zfjf12-880JywMain Campus Medical Center Comment on above:Performed By: #### POCGLUC ####[facility] Dhyvgmbehz0114[address] [place], [place] [address]Dr. Roxannelan ChangGlucose [Mass/Vol]163 mg/dL Critically zhfd75-556BhvMain Campus Medical CenterComment on above:Performed By: #### POCGLUC ####[facility] Fsesmpejfe1957[address] [place], [place] [address]Dr. Yilan ChangGlucose [Mass/Vol]370 mg/dLCritically ewwy61-780QlgMain Campus Medical CenterComment on above:Performed By: #### POCGLUC ####[facility] Lqdxoyhomf9984[address] [place], [place] [address]Dr. Grace ChangGlucose [Mass/Vol]434 mg/dLCritically inii54-563QdbMain Campus Medical CenterComment on above: Performed By: #### POCGLUC ####[facility] Tqcggouyoi4407[address] [place], [place] [address]Dr. Roxannelan ChangPROF 14(COMP METB)on 41-58-9291Fdgpsjg [Mass/Vol]2.6 g/dLCritically low3.4-5.0[facility] CenterComment on above: Performed By: #### CMP ####[facility] Vyorvfazta60[address] [place], [place] [address]Dr.Roxannelan ChangAlbumin/Globulin [Mass ratio]0.8 {ratio} NormalThe [facility] CenterComment on above:Performed By: #### CMP ####[facility] Acsgfmbyac7038[address] [place], [place] [address]Dr.Roxannelan ChangALP [Catalytic activity/Vol]75 U/TBogzdh62-041PvdMain Campus Medical CenterComment on above: Performed By: #### CMP ####[facility] Hjqtbbrnwo[address] [place], [place] [address]Dr.Yilan ChangALT [Catalytic activity/Vol]37 U/LNormal 14-59The [facility] CenterComment on above:Performed By: #### CMP ####[facility] Xthfkqswbc6685[address] [place], [place] [address]Dr.Yilan ChangAnion gap [Moles/Vol]15.7 mmol/LNormalThe [facility] CenterComment on above:Performed By: #### CMP ####[facility] Nkyohknyri864[address] [place], [place] [address]Dr.Yilan ChangAST [Catalytic activity/Vol]28 U/FQicajj43-54Dna [facility] CenterComment on above:Performed By: #### CMP ####[facility] Tyvpgcdcrf926[address] [place], [place] [address]Dr.Yilan ChangBilirubin [Mass/Vol]0.6 mg/dLNormal0.2-1.0The [facility] CenterComment on above:Performed By: #### CMP ####[facility] Zvmasdaxzf9080[address] [place], [place] [address]Dr.Yilan ChangCalcium [Mass/Vol]8.5 mg/dLNormal8.5-10.1The [facility] CenterComment on above:Performed By: #### CMP ####[facility] Rpfdoplueg4775[address] [place], [place] [address]Dr.Yilan ChangChloride [Moles/Vol]99 mmol/PRuwofk11-799Wdj [facility] CenterComment on above:Performed By: #### CMP ####[facility] Jlrhudmreg4987[address] [place], [place] [address]Dr.Yilan ChangCO2 [Moles/Vol]21.9 mmol/OJfcnax46.0-32.0The [facility] CenterComment on above:Performed By: #### CMP ####[facility] Scndksdlsc6485[address] [place], [place] [address]Dr.Yilan ChangCreatinine [Mass/Vol]0.58 mg/dLNormal0.55-1.02The [facility] CenterComment on above: Performed By: #### CMP ####[facility] [address] [place] [address]Dr.Yilan ChangEGFR-AF EGYPTIAN>60Normal>=60The [facility] CenterComment on above:Performed By: #### CMP ####[facility] Kcpdlckjwp3484[address] [place], [place] [address]Dr.Yilan ChangEGFR-NON AF EGYPTIAN>60Normal>=60The [facility] CenterComment on above:Performed By: #### CMP ####[facility] Vqaipobjbd7[address] [place], [place] [address]Dr. Yilan ChangGlobulin (S) [Mass/Vol]3.3 g/dLNormalThe [facility] CenterComment on above:Performed By: #### CMP ####[facility] Xsjwhkdspr9407[address] [place], [place] [address]Dr.Yilan ChangGlucose [Mass/Vol]457 mg/dLCritically ejjf23-154Gcd [facility] CenterComment on above:Performed By: #### CMP ####[facility] Vtnroylpkk3986[address] [place], [place] [address]Dr. Yilan ChangPotassium [Moles/Vol]3.6 mmol/LNormal3.5-5.1The [facility] Comment on above:Performed By: #### CMP ####[facility] Abpalvuvyz1637[address] [place], [place] [address]Dr.Yilan ChangProtein [Mass/Vol]5.9 g/dL Critically low6.4-8.2The [facility] CenterComment on above:Performed By: #### CMP ####[facility] Oiqpxetbed[address] [place], [place] [address]Dr. Yilan ChangSodium [Moles/Vol]133 mmol/LCritically pyd679-720Fni [facility] CenterComment on above:Performed By: #### CMP ####[facility] Xkxhzhfgby[address] [place], [place] [address]Dr.Yilan ChangUrea nitrogen [Mass/Vol]24.0 mg/dLCritically high7.0-18.0The [facility] CenterComment on above:Performed By: #### CMP ####[facility] Nngaenoouu3947[address] [place], [place] [address]Dr.Roxannega ChangUrea nitrogen/Creatinine [Mass ratio] 41.4 mg/mgNormalThe [facility] CenterComment on above:Performed By: #### CMP ####[facility] Lkmadohlyj32[address] [place], [place] [address]Dr. Grace ChangAMMONIAon 03-67-8342Shqjztg (P) [Moles/Vol]19 umol/HYvxgfh82-47Mwc [facility] CenterComment on above:Performed By: #### AMM ####[facility] Vojaesxxtj647[address] [place], [place] [address]Dr.Grace ChangBNPon 69-18-1838Sstmkpegaik peptide B (Bld) [Mass/Vol]359.0 pg/mLNormal<=900.0The [facility] CenterComment on above:Performed By: #### BNP, CMP ####[facility] Lqsfyxyuhi[address] [place], [place] [address]Dr. Grace ChangCBC AUTO DIFFon 02-72-7162RJSH #0.0 103/ulNormal0.0-0.1The [facility] CenterComment on above:Performed By: #### CBC ####[facility] Bpfyuibibv8187[address] [place], [place] [address]Dr.Roxannega ChangBasophils/100 WBC (Bld)0.1 %Critically low0.2-2.0The [facility] CenterComment on above:Performed By: #### CBC ####[facility] Vvaofsccva[address] [place], [place] [address]Dr. Yilan ChangEO #0.0 103/ulNormal0.0-0.7The [facility] CenterComment on above: Performed By: #### CBC ####[facility] Zukqvaddtv8467[address] [place], [place] [address]Dr.Roxannelan ChangEosinophils/100 WBC (Bld)0.1 %Critically low0.9-7.0The [facility] CenterComment on above:Performed By: #### CBC ####[facility] Bbauofinnk7920[address] [place], [place] [address]Dr. Yilan ChangErythrocyte distribution width (RBC) [Ratio]16.2 %Critically high 11.0-15.0The [facility] CenterComment on above:Performed By: #### CBC ####[facility] [address]szln[address] [place] [address]Dr. Grace ChangHematocrit (Bld) [Volume fraction]32.6 %Critically low36.0-48.0The [facility] CenterComment on above:Performed By: #### CBC ####[facility] Lwaibsxoqi7[address] [place], [place] [address]Dr.Roxannega ChangHemoglobin (Bld) [Mass/Vol]10.5 g/dLCritically low12.0-16.0The [facility] CenterComment on above:Performed By: #### CBC ####[facility] Bctuerewen35[address] [place], [place] [address]Dr.Grace ChangIG #0.04 10e3/ulCritically high0.00-0.03 The [facility] CenterComment on above:Performed By: #### CBC ####[facility] Vyrrnrsyxx[address] [place], [place] [address]Dr.Roxannega ChangIG % 0.4 %Normal0.0-0.5The [facility] CenterComment on above:Performed By: #### CBC ####[facility] Azprrcyske4625[address] [place], [place] [address]Dr. Grace ChangLYMPH #1.1 103/ulCritically low1.2-3.8The [facility] CenterComment on above:Performed By: #### CBC ####[facility] Ncihjefdwi[address] [place], [place] [address]Dr.Grace ChangLymphocytes/100 WBC (Bld)12.7 % Critically low20.5-60.0The [facility] CenterComment on above:Performed By: #### CBC ####[facility] Pmrqolcubb45[address] [place], [place] [address]Dr. Roxannega ChangMANUAL DIFF REQNONormalThe [facility] CenterComment on above: Performed By: #### CBC ####[facility] [address]felym[address] [place] [address]Dr.Grace BestH (RBC) [Entitic mass]29.2 pgNormal 26.7-34.0The [facility] CenterComment on above:Performed By: #### CBC ####[facility] Othgxwymex35[address] [place], [place] [address]Dr. Grace BestHC (RBC) [Mass/Vol]32.2 g/xFZlgxuh46.9-35.2The [facility] Comment on above:Performed By: #### CBC ####[facility] Yduijxjlpj26[address] [place], [place] [address]Dr.Grace NasirV (RBC) [Entitic vol]90.6 fL Tykdud53.0-99.0The [facility] CenterComment on above:Performed By: #### CBC ####[facility] Fbzasgdilz7825[address] [place], [place] [address]Dr. Roxannega BestMONO #0.5 103/ulNormal0.3-0.8The [facility] CenterComment on above: Performed By: #### CBC ####[facility] Zptzpmrcmj[address] [place], [place] [address]Dr.Roxannega BestMonocytes/100 WBC (Bld)5.6 %Normal 1.7-12.0The [facility] CenterComment on above:Performed By: #### CBC ####[facility] Cckhuysqdu5737[address] [place], [place] [address]Dr. Grace NasirNEUT #7.2 103/ulCritically high1.4-6.5The [facility] CenterComment on above:Performed By: #### CBC ####[facility] Pwxvwhnziz[address] [place], [place] [address]Dr.Grace NasirNeutrophils/100 WBC (Bld)81.1 % Critically high43.0-75.0The [facility] CenterComment on above:Performed By: #### CBC ####[facility] Wwogwigiwu5514[address] [place], [place] [address]Dr. Roxannega BestPlatelet mean volume (Bld) [Entitic vol]9.3 fLCritically low9.5-13.5 The [facility] CenterCom[facility] on above:Performed By: #### CBC ####[facility] [address] [place] [address]Dr.Grace NeyhfQBK788 103/pzPgdeex865-097Gax [facility] CenterComment on above:Performed By: #### CBC ####[facility] Z[address]kevgpht[address] [place] [address]Dr. Grace ChangRBC3.60 106/ulCritically low4.20-5.40The [facility] CenterComment on above:Performed By: #### CBC ####[facility] [address]jhqjeo[address] [place] [address]Dr.Grace ChangWBC8.9 103/ulNormal4.0-11.0The [facility] CenterCom[facility] on above:Performed By: #### CBC ####[facility] Kbreoiaxxt[address] [place], [place] [address]Dr.Roxannega ChangCRPon 12-32-0617CTN4.7 mg/dLNormal<=1.0[facility] CenterCom[facility] on above:Performed By: #### CRP ####[facility] Tcuvqrsxjf[address] [place], [place] [address]Dr.Grace BestMRI BRAIN WO CONon 31-49-1234WGU BRAIN WO CONNormalMain Campus Medical CenterPOINT OF CARE GLUCOSEon 93-94-1760Rhubcbx [Mass/Vol]324 mg/dL Critically gcyq88-981OpmMain Campus Medical CenterComasc[facility] on above:Performed By: #### POCGLUC ####[facility] E[address]efccarry[address] [place] [address]Dr. Grace ChangGlucose [Mass/Vol]243 mg/dLCritically dmma94-629BjcMain Campus Medical CenterComasc[facility] on above:Performed By: #### POCGLUC ####[facility] Egijrtqfaz[address] [place], [place] [address]Dr. Roxannega ChangPROF 14(COMP METB)on 08-14-6834Idqyold [Mass/Vol]2.3 g/dLCritically low3.4-5.0The [facility] CenterCom[facility] on above:Performed By: #### BNP, CMP ####[facility] Ibcfpngdyp[address] [place] [address]Dr. Grace Best Albumin/Globulin [Mass ratio]0.8 {ratio}NormalThe [facility] CenterComment on above:Performed By: #### BNP, CMP ####[facility] Z[address]fythdhti[address] [place] [address]Dr. Grace ChangALP [Catalytic activity/Vol]73 U/L Nslklm70-853Ghr [facility] CenterComment on above:Performed By: #### BNP, CMP ####[facility] Cfnexnmcrs[address] [place], [place] [address]Dr. Roxannega BestALT [Catalytic activity/Vol]13 U/LCritically gkg77-07Itl [facility] CenterComment on above:Performed By: #### BNP, CMP ####[facility] Yropcsxpvu[address]19[address] [place], [place] [address]Dr. Grace NasirAnion gap [Moles/Vol]11.6 mmol/LNormalThe [facility] CenterComment on above:Performed By: #### BNP, CMP ####[facility] Rguomiwmic26[address] [place], [place] [address]Dr. Grace ChangAST [Catalytic activity/Vol]8 U/LCritically ljn54-24Wyt [facility] CenterComment on above:Performed By: #### BNP, CMP ####[facility] Rnhzjtxknx[address] [place], [place] [address]Dr. Roxannega Best Bilirubin [Mass/Vol]0.7 mg/dLNormal0.2-1.0The [facility] CenterComment on above: Performed By: #### BNP, CMP ####[facility] Llyeodezla[address] [place], [place] [address]Dr. Roxannega ChangCalcium [Mass/Vol]8.5 mg/dLNormal 8.5-10.1The [facility] CenterComment on above:Performed By: #### BNP, CMP ####[facility] Tifqpheupm[address] [place], [place] [address]Dr. Roxannega ChangChloride [Moles/Vol]104 mmol/UFvgoya71-417Ken [facility] Comment on above:Performed By: #### BNP, CMP ####[facility] Rwcsktaxad[address] [place], [place] [address]Dr. Yilan ChangCO2 [Moles/Vol]20.5 mmol/LCritically low21.0-32.0The [facility] CenterComment on above:Performed By: #### BNP, CMP ####[facility] Bxjjurxhvs[address] [place], [place] [address]Dr. Yilan ChangCreatinine [Mass/Vol]0.55 mg/dLNormal 0.55-1.02The [facility] CenterComment on above:Performed By: #### BNP, CMP ####[facility] [address]zpphbyywd[address] [place], [place] [address]Dr. Yilan ChangEGFR-AF EGYPTIAN>60Normal>=60The [facility] CenterComment on above: Performed By: #### BNP, CMP ####[facility] Kafhoqsryz[address] [place], [place] [address]Dr. Yilan ChangEGFR-NON AF EGYPTIAN>60Normal>=60The [facility] CenterComment on above:Performed By: #### BNP, CMP ####[facility] [id number] [place], [place] [address]Dr. Yilan Best Globulin (S) [Mass/Vol]2.8 g/dLNormalThe [facility] CenterComment on above: Performed By: #### BNP, CMP ####[facility] [id number] [place], [place] [address]Dr. Yilan ChangGlucose [Mass/Vol]194 mg/dLCritically [id number] [facility] CenterComment on above:Performed By: #### BNP, CMP ####[facility] [id number] [place], [place] [address]Dr. Yilan ChangPotassium [Moles/Vol]3.1 mmol/LCritically low3.5-5.1The [facility] CenterComment on above:Performed By: #### BNP, CMP ####[facility] [id number] [place], [place] [address]Dr. Yilan ChangProtein [Mass/Vol]5.1 g/dLCritically low6.4-8.2The [facility] CenterComment on above: Performed By: #### BNP, CMP ####[facility] [id number] [place], [place] [address]Dr. Yilan ChangSodium [Moles/Vol]133 mmol/LCritically [id number] [facility] CenterComment on above:Performed By: #### BNP, CMP ####[facility] [id number] [place], [place] [address]Dr. Yilan ChangUrea nitrogen [Mass/Vol]30.0 mg/dLCritically high7.0-18.0The [facility] CenterComment on above:Performed By: #### BNP, CMP ####[facility] [address] [place], [place] [address]Dr. Yilan ChangUrea nitrogen/Creatinine [Mass ratio]54.5 mg/mgNormalThe [facility] CenterComment on above:Performed By: #### BNP, CMP ####[facility] Rbmzzkzbwe[address] [place], [place] [address]Dr. Yilan ChangSED RATE WESTERGRENon 01-86-9351ZPL RATE22 mm/hrNormal<=30The [facility] CenterComasc[facility] on above:Performed By: #### SEDR ####[facility] Zrqpovbpvg40[address] [place], [place] [address]Dr. Yiga ChangVIT B12 AND FOLATEon 91-76-7751Modeseehw (Vitamin B12) [Mass/Vol]387.0 pg/cFLptvxy965.0-986.0The [facility] CenterComment on above: Performed By: #### B12FOL ####[facility] Ladjektxkw[address] [place], [place] [address]Dr. Yilan ChangFOLATE9.70 ng/mLNormal8.60-58.90The [facility] CenterComment on above:Performed By: #### B12FOL ####[facility] Qbjqqciqsk[address] [place], [place] [address]Dr. Yilan ChangBNPon 43-92-5091Bdpmblvslcw peptide B (Bld) [Mass/Vol]289.0 pg/mLNormal<=900.0The [facility] CenterComment on above:Performed By: #### BNP, CMP ####[facility] Elyawdbwsi[address] [place], [place] [address]Dr. Grace ChangCBC AUTO DIFFon 64-42-2296JSNR #0.0 103/ulNormal0.0-0.1The [facility] CenterComment on above:Performed By: #### CBC ####[facility] Ctguqcjufa[address] [place], [place] [address]Dr.Yilan ChangBasophils/100 WBC (Bld)0.1 %Critically low0.2-2.0The [facility] CenterComment on above:Performed By: #### CBC ####[facility] Cjfdtiqquj[address] [place], [place] [address]Dr. Yilan ChangEO #0.0 103/ulNormal0.0-0.7The [facility] CenterComment on above: Performed By: #### CBC ####[facility] Oujeeqrguh15[address] [place], [place] [address]Dr.Yilan ChangEosinophils/100 WBC (Bld)0.0 %Critically low0.9-7.0The [facility] CenterComment on above:Performed By: #### CBC ####[facility] Frojutmxkx64[address] [place], [place] [address]Dr. Roxannelan ChangErythrocyte distribution width (RBC) [Ratio]16.7 %Critically high 11.0-15.0The [facility] CenterComment on above:Performed By: #### CBC ####[facility] Hlhzrwawes[address] [place], [place] [address]Dr. Grace ChangHematocrit (Bld) [Volume fraction]34.9 %Critically low36.0-48.0The [facility] CenterComment on above:Performed By: #### CBC ####[facility] Ufxzunnahw[address] [place], [place] [address]Dr.Grace ChangHemoglobin (Bld) [Mass/Vol]11.3 g/dLCritically low12.0-16.0The [facility] CenterComment on above:Performed By: #### CBC ####[facility] [address] [place] [address]Dr.Grace BestIG #0.07 10e3/ulCritically high0.00-0.03 The [facility] CenterComment on above:Performed By: #### CBC ####[facility] [address]ud[address] [place] [address]Dr.Grace BestIG % 0.7 %Critically high0.0-0.5The [facility] CenterComment on above:Performed By: #### CBC ####[facility] S[address]kpcywaz[address] [place] [address]Dr.Grace NasirLYMPH #0.7 103/ulCritically low1.2-3.8The [facility] Comment on above:Performed By: #### CBC ####[facility] Ldkapziuql67[address] [place], [place] [address]Dr.Roxannega BestLymphocytes/100 WBC (Bld)6.6 % Critically low20.5-60.0[facility] CenterComment on above:Performed By: #### CBC ####[facility] Uyoanlxtxt7[address] [place], [place] [address]Dr. Grace BestMANUAL DIFF REQNONormalThe [facility] CenterComment on above: Performed By: #### CBC ####[facility] Khhjzwshhs[address] [place], [place] [address]Dr.Grace BestH (RBC) [Entitic mass]29.2 pgNormal 26.7-34.0[facility] CenterComment on above:Performed By: #### CBC ####[facility] Iuuxsmwiaa25[address] [place], [place] [address]Dr. Grace BestHC (RBC) [Mass/Vol]32.4 g/uPRqjied16.9-35.2[facility] Comment on above:Performed By: #### CBC ####[facility] Vafydgzfms[address] [place], [place] [address]Dr.Grace BestV (RBC) [Entitic vol]90.2 fL Qokmxc18.0-99.0The [facility] CenterComment on above:Performed By: #### CBC ####[facility] Bqwfhekzqd7[address] [place], [place] [address]Dr. Grace BestMONO #0.5 103/ulNormal0.3-0.8The [facility] CenterComment on above: Performed By: #### CBC ####[facility] Uluujlppsd24[address] [place], [place] [address]Dr.Grace ChangMonocytes/100 WBC (Bld)4.5 %Normal 1.7-12.0The [facility] CenterComment on above:Performed By: #### CBC ####[facility] Ynbxzhgeja6[address] [place], [place] [address]Dr. Grace BestNEUT #9.5 103/ulCritically high1.4-6.5The [facility] CenterComment on above:Performed By: #### CBC ####[facility] Auqtcvxyxg0435[address] [place], [place] [address]Dr.Grace ChangNeutrophils/100 WBC (Bld)88.1 % Critically high43.0-75.0The [facility] HospitalComment on above:Performed By: #### CBC ####[facility] Ehcjpcwtzx1237[address] [place], [place] [address]Dr. Grace BestPlatelet mean volume (Bld) [Entitic vol]9.6 fLNormal9.5-13.5The [facility] CenterComment on above:Performed By: #### CBC ####[facility] Akvyyvdsbe6025[address] [place], [place] [address]Dr.Grace VpkfcKTF338 103/ul Ysadme929-313Jvz [facility] HospitalComment on above:Performed By: #### CBC ####[facility] Ichrdncwkc[address] [place], [place] [address]Dr. Grace BestRBC3.87 106/ulCritically low4.20-5.40The [facility] CenterComment on above:Performed By: #### CBC ####[facility] Xsmaqcorrx[address] [place], [place] [address]Dr.Roxannelan UnoygVCT88.7 103/ulNormal4.0-11.0[facility] CenterComment on above:Performed By: #### CBC ####[facility] On[address] [place] [address]Dr.Grace BestOCC BLD IMMUNOASSAYon 32-44-4579KKNFUJ BLOODNegativeNormalNEGATIVEMain Campus Medical Center Comment on above:Performed By: #### OBIA ####[facility] Rvredcveuy[address] [place], [place] [address]Dr. Grace ChangPOINT OF CARE GLUCOSEon 57-47-8266Farunsq [Mass/Vol]362 mg/dLCritically kduy91-150RjzMain Campus Medical Center Comment on above:Performed By: #### POCGLUC ####[facility] Ljcygwqqut74[address] [place], [place] [address]Dr. Grace ChangGlucose [Mass/Vol]523 mg/dL Critically cnwq43-535JsvMain Campus Medical CenterComment on above:Result Comment: Previously ConfirmedPerformed By: #### POCGLUC ####[facility] Zxffxtzhvm[address] [place], [place] [address]Dr. Grace ChangGlucose [Mass/Vol]374 mg/dLCritically nqzd75-074JspMain Campus Medical CenterComment on above: Performed By: #### POCGLUC ####[facility] Flzlirteaw4[address] [place], [place] [address]Dr. Grace ChangPROF 14(COMP METB)on 04-00-2595Navugzk [Mass/Vol]3.0 g/dLCritically low3.4-5.0[facility] CenterComment on above: Performed By: #### BNP, CMP ####[facility] Jeotjsdjrz8664[address] [place], [place] [address]Dr. Grace ChangAlbumin/Globulin [Mass ratio]0.9 {ratio}NormalThe [facility] Medical CenterComment on above:Performed By: #### BNP, CMP ####[facility] Umeikrtkkk[address] [place], [place] [address]Dr. Grace ChangALP [Catalytic activity/Vol]98 U/BTezjey28-479RxwMain Campus Medical Center Comment on above:Performed By: #### BNP, CMP ####[facility] Ztwuinenri[address] [place] [address]Dr. Yilan ChangALT [Catalytic activity/Vol]15 U/CLwxzkz85-87Yyq [facility] CenterComment on above:Performed By: #### BNP, CMP ####[facility] Ywcvwaohnf49[address] [place] [address]Dr. Yilan ChangAnion gap [Moles/Vol]26.0 mmol/LNormalThe [facility] CenterComment on above:Performed By: #### BNP, CMP ####[facility] Ikjidrnjqw[address] [place], [place] [address]Dr. Yilan ChangAST [Catalytic activity/Vol]8 U/LCritically wpc63-96Uir [facility] CenterComment on above: Performed By: #### BNP, CMP ####[facility] Dkpjuoxawd1419[address] [place], [place] [address]Dr. Yilan ChangBilirubin [Mass/Vol]1.2 mg/dLCritically high0.2-1.0The [facility] CenterComment on above:Performed By: #### BNP, CMP ####[facility] Oudoklxded[address]26[address] [place], [place] [address]Dr. Yilan ChangCalcium [Mass/Vol]9.3 mg/dLNormal8.5-10.1The [facility] CenterComment on above:Performed By: #### BNP, CMP ####[facility] Dnstzjapum[address] [place], [place] [address]Dr. Yilan ChangChloride [Moles/Vol]100 mmol/L Wkalvh55-764Xav [facility] CenterComment on above:Performed By: #### BNP, CMP ####[facility] Bbvoukhwyb[address] [place], [place] [address]Dr. Yilan ChangCO2 [Moles/Vol]12.4 mmol/LCritically low21.0-32.0The [facility] CenterComment on above:Performed By: #### BNP, CMP ####[facility] Fxncwfbtor[address] [place], [place] [address]Dr. Yilan ChangCreatinine [Mass/Vol]0.89 mg/dLNormal0.55-1.02The [facility] HospitalComment on above: Performed By: #### BNP, CMP ####[facility] Gilxjtxkzw[address] [place], [place] [address]Dr. Yilan ChangEGFR-AF EGYPTIAN>60Normal>=60The [facility] CenterComment on above:Performed By: #### BNP, CMP ####[facility] Ufyxgejwlr[address] [place], [place] [address]Dr. Yilan ChangEGFR- NON AF EGYPTIAN>60Normal>=60The [facility] HospitalComment on above:Performed By: #### BNP, CMP ####[facility] Arhcfroocr[address]25[address] [place], [place] [address]Dr. Yilan ChangGlobulin (S) [Mass/Vol]3.4 g/dLNormalThe [facility] CenterCom[facility] on above:Performed By: #### BNP, CMP ####[facility] Exsulqbrxw[address] [place], [place] [address]Dr. Yilan ChangGlucose [Mass/Vol]544 mg/dLCritically zrxl77-921TppMain Campus Medical CenterComasc[facility] on above: Performed By: #### BNP, CMP ####[facility] Tzaazjqmuf[address] [place], [place] [address]Dr. Yilan ChangPotassium [Moles/Vol]4.4 mmol/LNormal 3.5-5.1The [facility] CenterCom[facility] on above:Performed By: #### BNP, CMP ####[facility] Jdfrkcshfx9[address] [place], [place] [address]Dr. Yilan ChangProtein [Mass/Vol]6.4 g/dLNormal6.4-8.2The [facility] CenterComment on above:Performed By: #### BNP, CMP ####[facility] Lmtiopbaht[address] [place], [place] [address]Dr. Yilan ChangSodium [Moles/Vol]134 mmol/L Critically upu272-075Joe [facility] CenterCom[facility] on above:Performed By: #### BNP, CMP ####[facility] Cxzyusnmen2664[address] [place], [place] [address]Dr. Yilan ChangUrea nitrogen [Mass/Vol]26.0 mg/dLCritically high7.0-18.0The [facility] CenterComment on above:Performed By: #### BNP, CMP ####[facility] [address]ibc[address] [place] [address]Dr. Roxannega NasirUrea nitrogen/Creatinine [Mass ratio]29.2 mg/mgNormalThe [facility] CenterComment on above:Performed By: #### BNP, CMP ####[facility] El[address]xlkqdl[address] [place] [address]Dr. Roxannega ChangACETONE SERUMon 13-96-8276HVNMPBZ NegativeNormalNEGATIVEThe [facility] CenterComment on above:Performed By: #### ACETON ####[facility] Dakcipddre[address] [place], [place] [address]Dr. Grace ChangBNPon 45-48-7537Vzlwjkyigug peptide B (Bld) [Mass/Vol]169.0 pg/mLNormal<=900.0The [facility] CenterComment on above:Performed By: #### CMP, BNP, CMADM ####[facility] W[address]aitzove[address] [place] [address]Dr. Grace BestCARDIAC ALY 3-6on 75-66-1358BH [Catalytic activity/Vol]23 U/LCritically yxd77-356Kcz [facility] CenterComment on above:Performed By: #### CMREP ####[facility] Ddohzlrxnc[address] [place], [place] [address]Dr. Grace BestCK.MB [Mass/Vol]ng/mLNormal<=3.60The [facility] Comment on above:Performed By: #### CMREP ####[facility] Yzfdpkdpxe[address] [place], [place] [address]Dr. Grace NasirHSTROP8.7 pg/mLNormal4.0-51.3 The [facility] CenterComment on above:Result Comment: CUT-OFF POINTS HAVE BEEN ESTABLISHED BASED ON THE FOURTH UNIVERSAL DEFINITIONS OF MYOCARDIALINFARCTION. THE UPPER REFERENCE LIMIT (URL) OF TROPONIN, DEFINED THE 99TH PERCENTILE OFcT nI DISTRIBUTION IN A REFERENCE POPULATION, HAS BEEN CONFIRMED THE DECISION THRESHOLDFOR ME DIAGNOSIS.Performed By: #### CMREP ####[facility] [address] [place] [id number]. Grace BestLILIAM [Catalytic activity/Vol]24 U/LCritically cak21-907GuoMain Campus Medical CenterComment on above: Performed By: #### CMREP ####[facility] Thluobtunt[address] [place] [address]Dr. Grace Karrie.MB [Mass/Vol]ng/mLNormal<=3.60The [facility] CenterComment on above:Performed By: #### CMREP ####[facility] Lvpgqzqpma47[address] [place] [address]Dr. Grace CisnerosTROP8.8 pg/mLNormal4.0-51.3The [facility] CenterComment on above:Result Comment: CUT-OFF POINTS HAVE BEEN ESTABLISHED BASED ON THE FOURTH UNIVERSAL DEFINITIONS OF MY OCARDIALINFARCTION. THE UPPER REFERENCE LIMIT (URL) OF TROPONIN, DEFINED THE 99TH PERCENTILE OFcTnI DISTRIBUTION IN A REFERENCE POPULATION, HAS BEEN CONFIRMED THE DECISION THRESHOLDFOR ME DIAGNOSIS.Performed By: #### CMREP ####[facility] Radrxcqjvl38[address] [place] [address]Dr. Grace Rafael ALY ADMITon 28-72-6711LW [Catalytic activity/Vol]32 U/L Hhsjop02-782Jqn [facility] CenterComment on above:Performed By: #### CMP, BNP, CMADM ####[facility] [address]qtnyids[address] [place] [address]Dr. Grace Yoon.MB [Mass/Vol]ng/mLNormal<=3.60The [facility] Comment on above:Performed By: #### CMP, BNP, CMADM ####[facility] Tenbkawhko[address] [place] [address]Dr. Grace BestHSTROP7.3 pg/mLNormal4.0-51.3The [facility] on above:Result Comment: CUT-OFF POINTS HAVE BEEN ESTABLISHED BASED ON THE FOURTH UNIVERSAL DEFINITIONS OF MY OCARDIALINFARCTION. THE UPPER REFERENCE LIMIT (URL) OF TROPONIN, DEFINED THE 99TH PERCENTILE OFcTnI DISTRIBUTION IN A REFERENCE POPULATION, HAS BEEN CONFIRMED THE DECISION THRESHOLDFOR ME DIAGNOSIS.Performed By: #### CMP, BNP, CMADM ####[facility] M[address]najsmn28[address] [place] [address]Dr. Yilan SlfojCZW30 ng/mLNormal9-82The [facility] CenterComment on above: Performed By: #### CMP, BNP, CMADM ####[facility] Hqrngpaxpu68[address] [place] [address]Dr. Yilan ChangCBC W MANUAL DIFFon 05-08-2022 ANISOCYTOSISSLIGHTNormalThNewark HospitalComment on above:Performed By: #### CBCMAN ####[facility] Azscgaivks[address] [place], [place] [address]Dr. Yilan ChangATYPICAL LYMPH #NormalMain Campus Medical CenterComment on above: Performed By: #### CBCARIAN ####[facility] [address]vjtzklmt[address] [place], [place] [address]Dr. Yilan ChangATYPICAL LYMPH %NormalThe [facility] CenterComment on above:Performed By: #### CBCMAN ####[facility] Hfdyeotmgh[address] [place], [place] [address]Dr. Yilan ChangBAND #Normal 0.0-0.3The [facility] CenterComment on above:Performed By: #### CBCMAN ####[facility] Zmfnuaprdm[address] [place], [place] [address]Dr. Yilan ChangBAND %Normal0-5The [facility] CenterComment on above:Performed By: #### CBCMAN ####[facility] Ailynhwgwl80[address] [place], [place] [address]Dr. Yilan ChangBASOM #0.00 103/ulNormal0.00-0.10The [facility] Comment on above:Performed By: #### CBCMAN ####[facility] Lrjhadpjkq[address] [place], [place] [address]Dr. Yilan ChangBASOM %0.0 %Critically low 0.2-2.0[facility] CenterComment on above:Performed By: #### CBCMAN ####[facility] Wpquonlvlr[address] [place], [place] [address]Dr. Yilan ChangBLAST #NormalThe [facility] CenterComment on above:Performed By: #### CBCMAN ####[facility] Unwvlzcvua9[address] [place] [address]Dr. Yilan ChangBLAST %NormalThe [facility] CenterComment on above:Performed By: #### CBCMAN ####[facility] Eaflmsgjtv[address] [place], [place] [address]Dr. Yilan ChangCORRECTED WBCNormal4.0-11.0The [facility] CenterComment on above:Performed By: #### CBCMAN ####[facility] Lpondrhrzb[address] [place], [place] [address]Dr. Yilan ChangEOS #0.00 103/ulNormal0.00-0.70The [facility] CenterComment on above:Performed By: #### CBCMAN ####[facility] Ywmixsjudq[address] [place], [place] [address]Dr. Yilan ChangEOS% 0.0 %Critically low0.9-7.0The [facility] CenterComment on above:Performed By: #### CBCMAN ####[facility] Mxnruhxnpq06[address] [place], [place] [address]Dr. Yilan ApqwrUKU17.1 %Popaav77.0-48.0The [facility] CenterComment on above:Performed By: #### CBCMAN ####[facility] Vzdcxvuqky[address] [place], [place] [address]Dr. Yilan IkeaqFOZ88.1 g/qlLhqphw06.0-16.0The [facility] CenterComment on above:Performed By: #### CBCMAN ####[facility] Jarqqiuyvr65[address] [place], [place] [address]Dr. Yilan ChangLYMPHM #1.09 103/ulCritically low1.20-3.80The [facility] CenterComment on above:Performed By: #### CBCMAN ####[facility] Hcpmtmhwga[address] [place], [place] [address]Dr. Yilan ChangLYMPHM%11.0 %Critically low20.5-60.0The [facility] Comment on above:Performed By: #### CBCMAN ####[facility] [address]racwawn[address] [place] [id number]. Yilan QtfufABP17.0 qsMmobrg71.7-34.0The [facility] CenterComment on above:Performed By: #### ALL ####[facility] Tfodnazdgf56[address] [place] [address]Dr. Yilan ChangMCHC 34.3 g/eyXmhidw31.9-35.2The [facility] CenterComment on above:Performed By: #### CBCARIAN ####[facility] Lyqhiiobkk0[address] [place] [address]Dr. Yilan GqdmtFSL56.4 yLUbhxpg40.0-99.0The [facility] CenterComment on above:Performed By: #### CBCARIAN ####[facility] Yfyuzniged[address] [place], [place] [address]Dr. Yilan ChangMETAMYELOCYTE #NormalThe [facility] CenterComment on above:Performed By: #### ALL ####[facility] Udsyloqlvo[address] [place], [place] [address]Dr. Yilan ChangMETAMYELOCYTE %NormalThe [facility] CenterComment on above:Performed By: #### CBCARIAN ####[facility] Lmqbfegfiu[address] [place], [place] [address]Dr. Yilan ChangMONOM#0.40 103/ulNormal0.30-0.80The [facility] CenterComment on above:Performed By: #### CBCARIAN ####[facility] Mupvbvtgws[address] [place], [place] [address]Dr. Yilan ChangMONOM%4.0 %Normal1.7-12.0The [facility] CenterComment on above:Performed By: #### CBCARIAN ####[facility] Crazcrslqb68[address] [place], [place] [address]Dr. Yilan ChangMPV8.8 fL Critically low9.5-13.5The [facility] CenterComment on above:Performed By: #### ALL ####[facility] Jmukfnykyi[address] [place], [place] [address]Dr. Yilan ChangMYELOCYTE #NormalThe [facility] CenterComment on above: Performed By: #### CBCARIAN ####[facility] H[address]fgbrvdmi[address] [place] [id number]. Yilan ChangMYELOCYTE %NormalThe [facility] Comment on above:Performed By: #### CBCARIAN ####[facility] Fzwhdhnoru7[address] [place] [address]Dr. Yilan ChangNRBCNormalThe [facility] CenterComment on above:Performed By: #### CBCARIAN ####[facility] Qnwtapkxcd59[address] [place] [address]Dr. Yilan NtmloLMM959 103/ul Cgakhz102-644Xyj [facility] CenterComment on above:Performed By: #### ALL ####[facility] Qvjtbfmdbn[address] [place], [place] [address]Dr. Yilan ChangRBC4.87 106/ulNormal4.20-5.40The [facility] CenterComment on above: Performed By: #### ALL ####[facility] Pwpxgdkbfd[address] [place], [place] [address]Dr. Yilan QvhncDGW94.2 %Critically high11.0-15.0The [facility] CenterComment on above:Performed By: #### ALL ####[facility] Bundimofuo[address] [place], [place] [address]Dr. Roxannelan ChangSEG # 8.41 103/ulCritically high1.40-6.50The [facility] CenterComment on above: Performed By: #### ALL ####[facility] Jtyoiuowgd[address] [place], [place] [address]Dr. Yilan ChangSEG %85.0 %Critically high43.0-75.0The [facility] CenterComment on above:Performed By: #### CBCARIAN ####[facility] Cesujcfevq[address] [place], [place] [address]Dr. Yilan ChangWBC 9.9 103/ulNormal4.0-11.0The [facility] CenterComment on above:Performed By: #### CBCARIAN ####[facility] Rcxsouvhbq[address] [place], [place] [address]Dr. Grace BestCT HEAD WO CONon 20-06-8035HW HEAD WO CONNormalBerger Hospital HospitalCULTURE BLOODon 30-65-2355Nvmvipxcpix examination of blood, culture Culture Observations: NO GROWTH AT 5 DAYS.NormalMain Campus Medical CenterComment on above:Performed By: #### BLDCX2 ####[facility] Ihpbajveci[address] [place], [place] [address]Dr. Roxannelan ChangMicroscopic examination of blood, cultureCulture Observations: NO GROWTH AT 5 DAYS.NormalMain Campus Medical CenterComment on above:Performed By: #### BLDCX1 ####[facility] Afauylatht[address] [place], [place] [address]Dr. Roxannega ChangMicroscopic examination of blood, cultureCulture Observations: NO GROWTH AT 5 DAYS.NormalMain Campus Medical CenterComment on above:Performed By: #### BLDCX1 ####[facility] Gtvmlsajvw[address] [place], [place] [address]Dr. Roxannega NasirCovid-19 PCR (CVDTB)on 28-53-5200RQQM-CoV-2 (COVID-19) RNA LOUISE+probe Ql (Unsp spec)Not detectedNormalNOT DETECTEDMain Campus Medical Center Comment on above:Result Comment: When [...] for this test is supported by the Social Worker Assistant of Health and Human Service's declaration that [...] no longer be used).Performed By: #### CVDTBH ####[facility] Lzvgdxmifh[address] [place] [address]Dr. Roxannega BestD-DIMERon 32-73-2240T-DIMER0.38 mg/L FEUNormal<=0.59[facility] on above: Performed By: #### DDIM ####[facility] Eqaqruhfeo22[address] [place] [address]Dr. Yiga ChangD-DIMER COMMENTSSEE [facility] HospitalCom[facility] on above:Result Comment: Increases in D-Dimer [...] stress, and generalized hospitalization.Performed By: #### DDIM ####[facility] I[address]akjfnex[address] [place], [place] [address]Dr. Grace ChangDRUG SCREEN RAPID (URINE)on 41-09-7963IYQTztoycxpNpclpvYBKDFGCTTpb [facility]Com[facility] on above:Performed By: #### VIOLETA GR DRUGRPD ####[facility] Jeaylsmnky[address] [place] [address]Dr. Grace ChangBARNegativeNormalNEGATIVEMain Campus Medical CenterComascension [facility] on above: Performed By: #### VIOLETA GR DRUGRPD ####[facility] Uyjagpghrx[address] [place], [place] [address]Dr. Grace ChangBUPNegativeNormalNEGATIVEMain Campus Medical CenterComascension [facility] on above:Performed By: #### VIOLETA GR DRUGRPD ####[facility] Uyrphyambl[address] [place], [place] [address]Dr. Grace ChangBZONegativeNormalNEGATIVESelect [facility] [place] on above: Performed By: #### VIOLETA GR DRUGRPD ####[facility] Hovzrxdefr[address] [place], [place] [address]Dr. Grace BestCOCNegativeNormalNEGATIVEMain Campus Medical CenterComment on above:Performed By: #### TEVIN GRR, DRUGRPD ####[facility] Brirmdaooo[address] [place], [place] [address]Dr. Grace BestCUT-NORRIST[facility] HOSPITALE [facility] HospitalComment on above:Result Comment: AMP (Amphetamine): 500ng/mL, BAR (Barbituates): 200 ng/mL, BZO (Benzodiazepines): 150 ng/mL, BUP (Buprenorphine): 10 ng/mL, MATTHEW (Cocaine): 150 ng/mL, mAMP (Methamphetamine): 500 ng/mL, MTD (Methadone): 200 ng/mL, OPI (Opiates): 100 ng/mL, OXY (Oxycodone): 100 ng/mL, PCP (Phencyclidine): 25 ng/mL, PPX (Propoxyphene): 300 ng/mL, THC (Cannabinoids): 50 ng/mL, TCA (Trycyclic Antidepressants): 300 ng/mLPerformed By: #### TEVIN GRR, DRUGRPD ####[facility] [address]zahrwvn[address] [place], [place] [address]Dr. Grace BestDRUG CUT HEADERDRUG CLASS TEST SYSTEM CUT-OFF CONCENTRATIONS ARE FOLLOWS:Normal The [facility] CenterComascension [facility] on above:Performed By: #### TEVIN GRR, DRUGRPD ####[facility] [address]mcxrwkpth[address] [place], [place] [address]Dr. Grace BestmAMPNegativeNormalNEGATIVEMain Campus Medical CenterComment on above: Performed By: #### TEVIN GRR, DRUGRPD ####[facility] [address]ojhvsq[address] [place], [place] [address]Dr. Grace BestMTDNegativeNormalNEGATIVEMain Campus Medical CenterComment on above:Performed By: #### UMICZOË ERUR, DRUGRPD ####[facility] [id number] [place], [place] [address]Dr. Grace BestOPINegativeNormalNEGATIVEThe Mcbee HospitalComment on above: Performed By: #### UMICRO, ERUR, DRUGRPD ####[facility] [address] [address]Dr. Yilan ChangOXYNegativeNormalNEGATIVEBerger Hospital HospitalComment on above:Performed By: #### UMICRO, ERUR, DRUGRPD ####[facility] [address] [address]Dr. Yilan ChangPCPNegativeNormalNEGATIVEBerger Hospital HospitalComment on above: Performed By: #### UMICRO, ERUR, DRUGRPD ####[facility] [id number] [place], [place] [address]Dr. Yilan ChangPPXNegativeNormalNEGATIVEMain Campus Medical CenterComment on above:Performed By: #### UMICRO, ERUR, DRUGRPD ####[facility] [id number] [place], [place] [address]Dr. Yilan ChangTCANegativeNormalNEGATIVEMain Campus Medical CenterComment on above: Performed By: #### UMICRO, ERUR, DRUGRPD ####[facility] [address]wkd[address]nf[address] [place], [place] [address]Dr. Grace ChangTHCNegativeNormalNEGATIVEMain Campus Medical CenterComment on above:Performed By: #### UMICRO, ERUR, DRUGRPD ####[facility] Xyhdksqqbl[address] [place], [place] [address]Dr. Yilan ChangER URINE PROFILEon 57-48-6843Aotawsnyv Ql (U)NegativeNormalNEGATIVE [facility] CenterComment on above:Performed By: #### UMICRO, ERUR, DRUGRPD ####[facility] Hwpmxaucae[address] [place], [place] [address]Dr. Yilan ChangClarity (U)CLEARNormalCLEARBerger Hospital HospitalComment on above: Performed By: #### UMICRO, ERUR, DRUGRPD ####[facility] Axxjigqpoe6[address] [place], [place] [address]Dr. Yilan ChangColor (U)LT. YELLOWNormal YELLOWBerger Hospital HospitalComment on above:Performed By: #### VIOLETA GR, DRUGRPD ####[facility] Ucvbpkxmah[address] [place], [place] [address]Dr. Yilan ChangERUAHDA micrscopic examination will be performed if indicated.NormalThe Mcbee HospitalComment on above:Performed By: #### TEVIN GRR, DRUGRPD ####[facility] Gdjktglfzt[address] [place], [place] [address]Dr. Yilan ChangGlucose Ql (U)>1000AbnormalNEGATIVEMain Campus Medical CenterComment on above:Performed By: #### VIOLETA GR, DRUGRPD ####[facility] Ykaplwgumz90[address] [place], [place] [address]Dr. Yilan Best Hemoglobin Ql (U)TRACE-INTACTAbnormalNEGATIVEMain Campus Medical CenterComment on above:Performed By: #### VIOLETA GR, DRUGRPD ####[facility] Tgvgqqsmdd[address] [place], [place] [address]Dr. Yilan ChangKetones Ql (U) TRACEAbnormalNEGATIVEMain Campus Medical CenterComment on above:Performed By: #### TEVIN GRR, DRUGRPD ####[facility] Xtcfeafwpw[address] [place], [place] [address]Dr. Yilan ChangLEUKOCYTESMODERATEAbnormalNEGATIVEMain Campus Medical CenterComment on above:Performed By: #### TEVIN GRR, DRUGRPD ####[facility] Rozalcusft4[address] [place], [place] [address]Dr. Yilan ChangNitrite Ql (U)NegativeNormalNEGATIVEMain Campus Medical CenterComment on above:Performed By: #### TEVIN GRR, DRUGRPD ####[facility] Sqjbxwlavr[address] [place], [place] [address]Dr. Yilan ChangpH (U)8.5 [pH] Normal5-9[facility] CenterComment on above:Performed By: #### TEVIN GRR, DRUGRPD ####[facility] [address] [place] [address]Dr. Grace BestSPEC GRAVITY1.966Pyiwbl5.005-<=1.025The [facility] Comment on above:Performed By: #### VIOLETA GR, DRUGRPD ####[facility] [address]qfrgc[address] [place] [address]Dr. Grace BestUA PROTEIN NegativeNormalNEGATIVE/ TRACEThe [facility] CenterComment on above:Performed By: #### VIOLETA GR, DRUGRPD ####[facility] Pmrecdklyt[address] [place], [place] [address]Dr. Roxannega NasirUR MICRO INDINDICATEDNoKettering Health Main CampusComment on above:Performed By: #### VIOLETA GR, DRUGRPD ####[facility] Rnroosiyna[address] [place], [place] [address]Dr. Grace Best Urobilinogen Qn (U)0.2 {Ancelmo'U}/dLNormal0.2 - 1.0[facility] CenterComment on above:Performed By: #### VIOLETA GR DRUGRPD ####[facility] Ucjklxyyxr69[address] [place], [place] [address]Dr. Grace BsetINFLUENZA A AND B AGon 33-69-9957IBCRMMAQXKVVO [facility] HospitalComment on above:Result Comment: Negative for Flu A protein angiten. Infection due to Flu A cannot be ruled out. FluA angiten in the sample may be below the detection limit of the test.Performed By: #### INFLUAB ####[facility] Jdpsutdhko[address] [place], [place] [address]Dr. Roxannega ChangINFLUBNEGHSEE [facility] HospitalCom[facility] on above:Result Comment: Negative for Flu B protein antigen. Infection due to Flu B cannot be ruled out. FluB antigen in the sample may be below the detection limit of the test.Performed By: #### INFLUAB ####[facility] Ccazbfenwp8[address] [place], [place] [address]Dr. Yilan ChangINFLUENZA A AGNegativeNormalNEGATIVE SEE COMMENTThe [facility] CenterComment on above:Performed By: #### INFLUAB ####[facility] Puqetlgcdd[address] [place], [place] [address]Dr. Grace NasirINFLUENZA B AG NegativeNormalNEGATIVE SEE COMMENTThe [facility] CenterComment on above: Performed By: #### INFLUAB ####[facility] Avxeqknymk[address] [place], [place] [address]Dr. Yilan ChangLACTATE/LACTIC ACIDon 17-52-6803Pvptuuz [Moles/Vol]1.9 mmol/LNormal0.4-1.9The [facility] CenterComment on above: Performed By: #### LACT ####[facility] Iesmmkdbdd[address] [place], [place] [address]Dr. Yilan ChangLactate [Moles/Vol]1.0 mmol/LNormal 0.4-1.9The [facility] CenterComment on above:Performed By: #### LACT ####[facility] Sgfiggflom[address] [place], [place] [address]Dr. Roxannega ChangLactate [Moles/Vol]5.3 mmol/LCritically high0.4-1.9The [facility] CenterComascension [facility] on above:Performed By: #### LACT ####[facility] Itgpafvyyp[address] [place], [place] [address]Dr. Grace NasriPH VENOUS BLOODon 08-62-9970HUP6 DQUCGG80.9 mmHgCritically low40.0-52.0The [facility] CenterComment on above:Performed By: #### PHVEN ####[facility] Mezueckdrg7[address] [place], [place] [address]Dr. Roxannelan ChangpH VENOUS7.359 Normal7.330-7.430The [facility] CenterComment on above:Performed By: #### PHVEN ####[facility] Bjidxyzmvs8[address] [place], [place] [address]Dr. Grace ChangPOINT OF CARE GLUCOSEon 95-48-7239Niyreaa [Mass/Vol]268 mg/dL Critically uktk51-757Orz [facility] CenterComment on above:Result Comment: Will Repeat TestPerformed By: #### POCGLUC ####[facility] Q[address]wiizlef[address] [place] [address]Dr. Grace BestGlucose [Mass/Vol]493 mg/dL Critically kpcr08-900Veh [facility] CenterComment on above:Performed By: #### POCGLUC ####[facility] Qsidtmmktn[address] [place] [address]Dr. Grace ChangGlucose [Mass/Vol]356 mg/dLCritically cypj43-279Pzv [facility] CenterComment on above:Performed By: #### POCGLUC ####[facility] Myeinjqtrg45[address] [place] [address]Dr. Grace ChangPROF 14(COMP METB)on 39-23-0136Yunffvd [Mass/Vol]3.8 g/dLNormal3.4-5.0[facility] Comment on above:Performed By: #### CMP, BNP, CMADM ####[facility] Raczrcxvbu97[address] [place], [place] [address]Dr. Roxannega Best Albumin/Globulin [Mass ratio]0.9 {ratio}NormalMain Campus Medical CenterComment on above:Performed By: #### CMP, BNP, CMADM ####[facility] Mbqwwfycnh7[address] [place], [place] [address]Dr. Grace BestALP [Catalytic activity/Vol] 119 U/LCritically fcxr00-229Pyo [facility] CenterComment on above:Performed By: #### CMP, BNP, CMADM ####[facility] [address]ordtsscp[address] [place] [address]Dr. Grace ChangALT [Catalytic activity/Vol]18 U/L Blzhvl52-24Hgo [facility] CenterComment on above:Performed By: #### CMP, BNP, CMADM ####[facility] Izyfiqzkss30[address] [place], [place] [address]Dr. Grace BestAnion gap [Moles/Vol]19.0 mmol/LNormalThe [facility] Comment on above:Performed By: #### CMP, BNP, CMADM ####[facility] Wklxkxyakn92[address] [place], [place] [address]Dr. Yilan ChangAST [Catalytic activity/Vol]13 U/LCritically ljn29-59Zxc [facility] on above: Performed By: #### CMP, BNP, CMADM ####[facility] Xtvssukjxz[address] [place] [address]Dr. Yilan ChangBilirubin [Mass/Vol]0.8 mg/dL Normal0.2-1.0The [facility] on above:Performed By: #### CMP, BNP, CMADM ####[facility] Ifnfbxceou[address] [place] [address]Dr. Yilan ChangCalcium [Mass/Vol]9.9 mg/dLNormal8.5-10.1The [facility] on above:Performed By: #### CMP, BNP, CMADM ####[facility] [address]jvqutvv[address] [place] [address]Dr. Yilan Best Chloride [Moles/Vol]97 mmol/LCritically pbw73-660Nje [facility] on above:Performed By: #### CMP, BNP, CMADM ####[facility] Evugzatewv4[address] [place] [address]Dr. Yilan ChangCO2 [Moles/Vol]18.7 mmol/L Critically low21.0-32.0The [facility] on above:Performed By: #### CMP, BNP, CMADM ####[facility] Anvdtbxypx[address] [place], [place] [address]Dr. Yilan ChangCreatinine [Mass/Vol]0.85 mg/dLNormal0.55-1.02The [facility] on above:Performed By: #### CMP, BNP, CMADM ####[facility] Jhlzitfnzc32[address] [place], [place] [address]Dr. Yilan ChangEGFR-AF EGYPTIAN>60Normal>=60The [facility] on above: Performed By: #### CMP, BNP, CMADM ####[facility] Fexssowbpd0067[address] [place], [place] [address]Dr. Yilan ChangEGFR-NON AF EGYPTIAN>60Normal>=60 The [facility] HospitalComment on above:Performed By: #### CMP, BNP, CMADM ####[facility] Hnoexsmjzu9470[address] [place], [place] [address]Dr. Yilan ChangGlobulin (S) [Mass/Vol]4.1 g/dLNormHenry County HospitalComment on above:Performed By: #### CMP, BNP, CMADM ####[facility] Wrqddpdlod[address] [place], [place] [address]Dr. Yilan ChangGlucose [Mass/Vol]322 mg/dL Critically eoim96-887Prl [facility] CenterComasc[facility] on above:Performed By: #### CMP, BNP, CMADM ####[facility] Psnyrhxhrq9786[address] [place], [place] [address]Dr. Yilan ChangPotassium [Moles/Vol]3.7 mmol/LNormal3.5-5.1The [facility] CenterComment on above:Performed By: #### CMP, BNP, CMADM ####[facility] Jkqttcqbyn7[address] [place], [place] [address]Dr. Yilan ChangProtein [Mass/Vol]7.9 g/dLNormal6.4-8.2[facility] CenterComment on above:Performed By: #### CMP, BNP, CMADM ####[facility] Seuyqcjrsl[address] [place], [place] [address]Dr. Yilan ChangSodium [Moles/Vol]131 mmol/L Critically spe631-009Tox [facility] CenterComasc[facility] on above:Performed By: #### CMP, BNP, CMADM ####[facility] Qsxxaeolru[address] [place], [place] [address]Dr. Yilan ChangUrea nitrogen [Mass/Vol]22.0 mg/dLCritically high 7.0-18.0The [facility] CenterComment on above:Performed By: #### CMP, BNP, CMADM ####[facility] Uogyqufsmo[address] [place], [place] [address]Dr. Yilan ChangUrea nitrogen/Creatinine [Mass ratio]25.9 mg/mgNoKettering Health Main CampusComment on above:Performed By: #### CMP, BNP, CMADM ####[facility] G[address]nbjwu[address] [place] [address]Dr. Grace Best PROTIMEon 64-91-7232AHL Coag (PPP) [Relative time]{INR}NormalThe [facility] CenterComment on above:Performed By: #### PTT, PT ####[facility] Jacmcjfxid60[address] [place] [address]Dr. Grace BestINR GUIDELINES SEE BELOWNormalThe [facility] CenterComment on above:Result Comment: DESIRED INR: 2.0 - 3.0 CONDITIONS NOT LISTED BELOW 2.5 - 3.5 FOR PROSTHETIC HEART VALVE REPLACEMENT 2.5 - 3.5 RECURRENT THROMBOSISPerformed By: #### PTT, PT ####[facility] Rqgkavttks[address] [place], [place] [address]Dr. Grace BestPT Coag (PPP) [Time]9.3 sNormal9.0-11.6The [facility] CenterComment on above:Performed By: #### PTT, PT ####[facility] Xvojdesqci12[address] [place], [place] [address]Dr. Grace BestPTTon 07-76-7623eBSR Coag (Bld) [Time]29.6 uMnwtps42.3-36.2The [facility] CenterComment on above:Performed By: #### PTT, PT ####[facility] Yennwwoxla[address] [place], [place] [address]Dr. Grace BestTSHon 82-25-2081DKJ1.894 uIU/mLNormal0.358-3.740The [facility] CenterComment on above:Performed By: #### TSH ####[facility] Tycnmpgddm[address] [place], [place] [address]Dr.Grace BestURINE MICROSCOPIC ONLYon 03-45-5106VOAQMHGMN CRYSTALSRARENormalMain Campus Medical Center Comment on above:Performed By: #### SIMÓN, ERUR, DRUGRPD ####[facility] Rxbmzwyssq65[address] [place], [place] [address]Dr. Grace BestBACTERIATRACE AbnormalNONE SEENThe [facility] CenterComment on above:Performed By: #### SIMÓN ERUR, DRUGRPD ####[facility] [address]ah[address] [place] [address]Dr. Grace BestBacteria identified Cx Nom (U)INDICATED NormalThe [facility] CenterComascension [facility] on above:Performed By: #### UMICRO, ERUR, DRUGRPD ####[facility] R[address]osbynnc[address] [place] [address]Dr. Grace BestCA OX CRYSTALSRARENormalThe [facility] CenterComment on above:Performed By: #### SIMÓN, ERUR, DRUGRPD ####[facility] Yevuvuxunp[address] [place] [address]Dr. Grace BestCASTNONE SEEN NormalNONE SEENMain Campus Medical CenterComascension [facility] on above:Performed By: #### SIMÓN ERUR, DRUGRPD ####[facility] Wpobeyivmf[address] [place], [place] [address]Dr. Grace BestCrystals LM Nom (Urine sed)SEENAbnormalNONE SEENThe [facility] CenterComment on above:Performed By: #### SIMÓN ERUR, DRUGRPD ####[facility] Xhfnlvzods[address] [place], [place] [address]Dr. Grace ChangEpithelial cells LM Ql (Urine sed)NONE SEENNormalNONE SEEN /RAREThe [facility] on above:Performed By: #### TEVIN GRR, DRUGRPD ####[facility] Fjgmdjcgrt[address] [place], [place] [address]Dr. Grace BestMUCOUSNONE SEENNormalNONE SEENSelect Medical Specialty [facility] [place] on above: Performed By: #### SIMÓN ERUR, DRUGRPD ####[facility] Btidacthai8[address] [place], [place] [address]Dr. Grace BestGahgfBVP4-9Bbfofs0-7Kam [facility] on above:Performed By: #### UMICRO, ERUR, DRUGRPD ####[facility] Gtnbmiwjwu[address] [place], [place] [address]Dr. Grace Best TRIPLE PHOS CRYSTALSFEWNormalThe Mcbee HospitalComment on above:Performed By: #### VIOLETA GR, DRUGRPD ####[facility] [address]vbtdtyoqe[address] [place] [address]Dr. Yilan ChangWBC5-10AbnormalNONE SEENThe [facility] CenterComment on above:Performed By: #### VIOLETA GR, DRUGRPD ####[facility] Ftvpcuhotg49[address] [place] [address]Dr. Yilan ChangXR CHEST 1 Von 70-11-4059AC CHEST 1 VNormalProvidence Hospital AUTO DIFFon 17-81-1628SUUU #0.0 103/ulNormal0.0-0.1The [facility] CenterComment on above: Performed By: #### CBC ####[facility] Ebodybpscc90[address] [place], [place] [address]Dr.Grace ChangBasophils/100 WBC (Bld)0.4 %Normal 0.2-2.0The [facility] CenterComment on above:Performed By: #### CBC ####[facility] Txgfdwtrvh06[address] [place], [place] [address]Dr.Yilan ChangEO # 0.1 103/ulNormal0.0-0.7The [facility] CenterComment on above:Performed By: #### CBC ####[facility] Zhzkbkjpya75[address] [place], [place] [address]Dr. Grace ChangEosinophils/100 WBC (Bld)1.0 %Normal0.9-7.0The [facility] Comment on above:Performed By: #### CBC ####[facility] Ukfoqczggm[address] [place], [place] [address]Dr.Grace ChangErythrocyte distribution width (RBC) [Ratio]14.1 %Wzuttu20.0-15.0The [facility] CenterComment on above: Performed By: #### CBC ####[facility] Zgvpbscqcd[address] [place], [place] [address]Dr.Grace ChangHematocrit (Bld) [Volume fraction]31.2 % Critically low36.0-48.0The [facility] CenterComment on above:Performed By: #### CBC ####[facility] Amflpvpgzo8850[address] [place], [place] [address]Dr. Grace NasirHemoglobin (Bld) [Mass/Vol]10.5 g/dLCritically low12.0-16.0The [facility] CenterComment on above:Performed By: #### CBC ####[facility] Dqwkterhqq5407[address] [place], [place] [address]Dr.Grace ChangIG #0.01 10e3/ulNormal0.00-0.03The [facility] CenterComment on above:Performed By: #### CBC ####[facility] Icdggazozu069[address] [place], [place] [address]Dr. Grace BestIG %0.2 %Normal0.0-0.5The [facility] CenterComment on above:Performed By: #### CBC ####[facility] Twmwtxvpbv0026[address] [place], [place] [address]Dr.Grace BestLYMPH #1.8 103/ulNormal1.2-3.8The [facility] Comment on above:Performed By: #### CBC ####[facility] Xvlpsaoesz5[address] [place], [place] [address]Dr.Grace BestLymphocytes/100 WBC (Bld)33.5 %Ikfmfp80.5-60.0The [facility] CenterComment on above:Performed By: #### CBC ####[facility] Wzfqfpbzlf[address] [place], [place] [address]Dr. Grace BestMANUAL DIFF REQNONormalThe [facility] CenterComment on above: Performed By: #### CBC ####[facility] Vqusbkwwuu3674[address] [place], [place] [address]Dr.Grace BestARNOT [facility] (RBC) [Entitic mass]29.1 pgNormal 26.7-34.0The [facility] CenterComment on above:Performed By: #### CBC ####[facility] Pnyvismyxc67[address] [place], [place] [address]Dr. Grace BestBERTRAND CH[facility] (RBC) [Mass/Vol]33.7 g/uTLcwllu76.9-35.2The [facility] Comment on above:Performed By: #### CBC ####[facility] Kezmtteanb26[address] [place], [place] [address]Dr.Grace BestMCV (RBC) [Entitic vol]86.4 fL Ldlypj69.0-99.0The [facility] CenterComment on above:Performed By: #### CBC ####[facility] Eltherhfub0699[address] [place], [place] [address]Dr. Grace BestMONO #0.3 103/ulNormal0.3-0.8The Mc[facility] HospitalComment on above: Performed By: #### CBC ####[facility] Gxfsmaewax[address] [place], [place] [address]Dr.Grace ChangMonocytes/100 WBC (Bld)6.3 %Normal 1.7-12.0The [facility] CenterComment on above:Performed By: #### CBC ####[facility] Siumjjakxw295[address] [place], [place] [address]Dr. Grace BestNEUT #3.1 103/ulNormal1.4-6.5The [facility] HospitalComment on above: Performed By: #### CBC ####[facility] Guwlneamwo5870[address] [place], [place] [address]Dr.Grace ChangNeutrophils/100 WBC (Bld)58.6 %Normal 43.0-75.0The [facility] CenterComment on above:Performed By: #### CBC ####[facility] Xrafsfswwt8138[address] [place], [place] [address]Dr. Grace BestPlatelet mean volume (Bld) [Entitic vol]8.6 fLCritically low9.5-13.5 The [facility] CenterComment on above:Performed By: #### CBC ####[facility] Vofyhavvdc50[address] [place], [place] [address]Dr.Grace NaofaCBP154 103/dhSzfwnc188-764Zci [facility] CenterComment on above:Performed By: #### CBC ####[facility] Jdjqyaqitb06[address] [place], [place] [address]Dr. Yilan ChangRBC3.61 106/ulCritically low4.20-5.40The [facility] CenterComment on above:Performed By: #### CBC ####[facility] [address]pcudfnq[address] [place] [address]Dr.Grace ChangWBC5.3 103/ulNormal4.0-11.0The [facility] CenterComment on above:Performed By: #### CBC ####[facility] Oojekfcgex[address] [place], [place] [address]Dr.Grace ChangCULTURE URINEon 01-41-2774TEMOLPR URINENormalThe [facility] CenterComment on above:Performed By: #### URCX ####[facility] Kkqfuvgwoy[address] [place], [place] [address]Dr. Grace ChangPOINT OF CARE GLUCOSEon 81-06-2477Fsrdnjf [Mass/Vol]473 mg/dLCritically rtjx07-048Gfc [facility] CenterComment on above:Performed By: #### POCGLUC ####[facility] Jjbfyzffzh[address] [place], [place] [address]Dr. Grace ChangPROF 14(COMP METB)on 14-00-6779Ylwyvdw [Mass/Vol]2.3 g/dL Critically low3.4-5.0The [facility] CenterComment on above:Performed By: #### CMP ####[facility] Cfztuakzhz[address] [place], [place] [address]Dr. Grace BestAlbumin/Globulin [Mass ratio]0.7 {ratio}NormalThe [facility] Comment on above:Performed By: #### CMP ####[facility] Ewyvomsjdp[address] [place], [place] [address]Dr.Grace ChangALP [Catalytic activity/Vol]71 U/IJtiwpa07-446Rka [facility] CenterComment on above:Performed By: #### CMP ####[facility] Arknvfqcar8320[address] [place], [place] [address]Dr. Roxannelan ChangALT [Catalytic activity/Vol]12 U/LCritically gjo73-37Who [facility] CenterComment on above:Performed By: #### CMP ####[facility] Gcvtrveqyw[address] [place] [id number].Yilan ChangAnion gap [Moles/Vol]9.1 mmol/LNormalThe [facility] CenterComment on above:Performed By: #### CMP ####[facility] Trhauhjrmt7[address] [place], [place] [address]Dr.Yilan ChangAST [Catalytic activity/Vol]10 U/LCritically juk70-02Mhr [facility] CenterComment on above:Performed By: #### CMP ####[facility] Mvbsoiycep01[address] [place], [place] [address]Dr.Yilan ChangBilirubin [Mass/Vol]0.2 mg/dLNormal0.2-1.0The [facility] CenterComment on above:Performed By: #### CMP ####[facility] Pbsppsrnnw[address] [place], [place] [address]Dr.Yilan ChangCalcium [Mass/Vol]8.1 mg/dLCritically low8.5-10.1The [facility] CenterComment on above:Performed By: #### CMP ####[facility] Ymcvqgexuw19[address] [place], [place] [address]Dr.Yilan ChangChloride [Moles/Vol]104 mmol/CKhigts28-075Myt [facility] CenterComment on above:Performed By: #### CMP ####[facility] Flbhgypnwm77[address] [place], [place] [address]Dr.Yilan ChangCO2 [Moles/Vol]24.5 mmol/GQvrhig18.0-32.0The [facility] CenterComment on above:Performed By: #### CMP ####[facility] Ykdottcuze8[address] [place], [place] [address]Dr.Yilan ChangCreatinine [Mass/Vol]0.50 mg/dLCritically low0.55-1.02The [facility] CenterComment on above:Performed By: #### CMP ####[facility] Jgrhrdssim8[address] [place], [place] [address]Dr.Yilan ChangEGFR-AF EGYPTIAN>60Normal>=60The [facility] CenterComment on above:Performed By: #### CMP ####[facility] Gqwawarywm[address] [place] [id number].Yilan ChangEGFR-NON AF EGYPTIAN>60Normal>=60The [facility] CenterComment on above:Performed By: #### CMP ####[facility] Segprzwhla[address] [place] [id number]. Yilan ChangGlobulin (S) [Mass/Vol]3.1 g/dLNormalThNewark HospitalComment on above:Performed By: #### CMP ####[facility] Dsxygfyayk[address] [place], [place] [address]Dr.Yilan ChangGlucose [Mass/Vol]322 mg/dLCritically awmd03-501Gqi [facility] CenterComment on above:Performed By: #### CMP ####[facility] Qhrdxwuuww9[address] [place] [address]Dr. Yilan ChangPotassium [Moles/Vol]3.6 mmol/LNormal3.5-5.1The [facility] Comment on above:Performed By: #### CMP ####[facility] Ekwjjfrfcb[address] [place], [place] [address]Dr.Yilan ChangProtein [Mass/Vol]5.4 g/dL Critically low6.4-8.2The [facility] CenterComment on above:Performed By: #### CMP ####[facility] Klwjcgjqad[address] [place], [place] [address]Dr. Yilan ChangSodium [Moles/Vol]134 mmol/LCritically nbp048-824Cmj [facility] CenterComment on above:Performed By: #### CMP ####[facility] Vjhpxmozga[address] [place], [place] [address]Dr.Yilan ChangUrea nitrogen [Mass/Vol]18.0 mg/dLNormal7.0-18.0The [facility] CenterComment on above: Performed By: #### CMP ####[facility] R[address]jrjxyppd67[address] [place], [place] [address]Dr.Yilan ChangUrea nitrogen/Creatinine [Mass ratio] 36.0 mg/mgNormalThe [facility] CenterComment on above:Performed By: #### CMP ####[facility] Ctlokupxie[address] [place], [place] [address]Dr. Grace BestCBC AUTO DIFFon 72-14-7758AXZU #0.0 103/ulNormal0.0-0.1The [facility] CenterComment on above:Performed By: #### CBC ####[facility] Fhimseupcv[address] [place], [place] [address]Dr.Grace ChangBasophils/100 WBC (Bld)0.2 %Normal0.2-2.0The [facility] HospitalComment on above:Performed By: #### CBC ####[facility] Sujlpkvbpj40[address] [place], [place] [address]Dr.Yilan ChangEO #0.0 103/ulNormal0.0-0.7The [facility] CenterComment on above:Performed By: #### CBC ####[facility] Trhvvlngii138[address] [place], [place] [address]Dr.Grace ChangEosinophils/100 WBC (Bld)0.2 %Critically low0.9-7.0The [facility] CenterComment on above:Performed By: #### CBC ####[facility] Dkmtpapptq9[address] [place], [place] [address]Dr. Grace ChangErythrocyte distribution width (RBC) [Ratio]14.4 %Rjkarf20.0-15.0The [facility] CenterComment on above:Performed By: #### CBC ####[facility] Gphijcxfji[address] [place], [place] [address]Dr.Grace ChangHematocrit (Bld) [Volume fraction]31.9 %Critically low36.0-48.0The [facility] CenterComment on above:Performed By: #### CBC ####[facility] [id number] [place], [place] [address]Dr.Grace ChangHemoglobin (Bld) [Mass/Vol]10.6 g/dL Critically low12.0-16.0The [facility] CenterComment on above:Performed By: #### CBC ####[facility] [id number] [place], [place] [address]Dr. Grace ChangIG #0.03 10e3/ulNormal0.00-0.03The [facility] CenterComment on above: Performed By: #### CBC ####[facility] [address] [address]DrGiancarloGrace BestIG %0.3 %Normal0.0-0.5The [facility] CenterComment on above:Performed By: #### CBC ####[facility] [address] [place], [place] [address]Dr.Grace BestST. CATHERINE OF SIENA MEDICAL CENTERH #1.9 103/ulNormal1.2-3.8The [facility] CenterComment on above:Performed By: #### CBC ####[facility] [id number] [place], [place] [address]DrGiancarlo Grace Kotharihocytes/100 WBC (Bld)19.1 %Critically low20.5-60.0The [facility] CenterComment on above:Performed By: #### CBC ####[facility] [id number] [place], [place] [address]Dr.Grace eBstSELECT MEDICAL SPECIALTY [facility] - [place] DIFF REQ NONormalThe Uc Medical CenterComment on above:Performed By: #### CBC ####[facility] Pyfbnjjiml[address] [place], [place] [address]DrGiancarlo Roxannega BestARNOT OGDEN [facility] (RBC) [Entitic mass]29.0 mzBodydc17.7-34.0[facility] Comment on above:Performed By: #### CBC ####[facility] Grrkueaziw[address] [place], [place] [address]Dr.Grace NasirBERTRAND CHAFFEE [facility] (RBC) [Mass/Vol]33.2 g/dL Zsiwif67.9-35.2The [facility] CenterComment on above:Performed By: #### CBC ####[facility] Dwfmxllztj[address] [place], [place] [address]DrGiancarlo Roxannega BestCLAREMORE [facility] [place] ([place]BC) [Entitic vol]87.2 lMEpmzrb23.0-99.0The [facility] Comment on above:Performed By: #### CBC ####[facility] Wzoeyhrpsn06[address] [place], [place] [address]Dr.Grace BestMONO #0.5 103/ulNormal0.3-0.8 The [facility] CenterComment on above:Performed By: #### CBC ####[facility] R[address]imou[address] [place] [address]Dr.Grace Best Monocytes/100 WBC (Bld)4.6 %Normal1.7-12.0The [facility] CenterComment on above: Performed By: #### CBC ####[facility] Baupemflrg6337[address] [place], [place] [address]Dr.Grace BestNEUT #7.4 103/ulCritically high1.4-6.5 The [facility] CenterComment on above:Performed By: #### CBC ####[facility] Sxfykbhlji6650[address] [place], [place] [address]Dr.Grace Best Neutrophils/100 WBC (Bld)75.6 %Critically high43.0-75.0The [facility] Comment on above:Performed By: #### CBC ####[facility] Eynxfsqccr1939[address] [place], [place] [address]Dr.Grace BestPlatelet mean volume (Bld) [Entitic vol]8.4 fLCritically low9.5-13.5The [facility] CenterComment on above: Performed By: #### CBC ####[facility] Oejllehmlg1889[address] [place], [place] [address]Dr.Grace BgwuxPOS627 103/abUwoxdb939-392Xqy [facility] CenterComment on above:Performed By: #### CBC ####[facility] Lwogljcigw6265[address] [place], [place] [address]Dr.Grace BestRBC3.66 106/ul Critically low4.20-5.40The [facility] CenterComment on above:Performed By: #### CBC ####[facility] Eakqoxzvlx1499[address] [place], [place] [address]Dr. Roxannelan ChangWBC9.8 103/ulNormal4.0-11.0The [facility] CenterComment on above: Performed By: #### CBC ####[facility] Jitfecnhxz2824[address] [place], [place] [address]Dr.Grace BestPOINT OF CARE GLUCOSEon 03-31-2022 Glucose [Mass/Vol]387 mg/dLCritically hkay83-086Bix [facility] CenterComment on above:Performed By: #### POCGLUC ####[facility] [address]wdswniv[address] [place] [address]Dr. Grace ChangPROF 14(COMP METB)on 32-51-5589Ppvyxnu [Mass/Vol]2.7 g/dLCritically low3.4-5.0The [facility] HospitalComment on above: Performed By: #### CMP ####[facility] Hixeccmgoi0564[address] [place], [place] [address]Dr.Grace ChangAlbumin/Globulin [Mass ratio]0.8 {ratio} NormalThe [facility] Medical CenterComment on above:Performed By: #### CMP ####[facility] Ajgtmzhtig4855[address] [place], [place] [address]Dr.Grace ChangALP [Catalytic activity/Vol]75 U/UFxgnip08-254Ajx [facility] CenterComment on above: Performed By: #### CMP ####[facility] Hinumytduh3456[address] [place], [place] [address]Dr.Grace ChangALT [Catalytic activity/Vol]11 U/L Critically auw78-99Lzb [facility] CenterComment on above:Performed By: #### CMP ####[facility] Jcahvrnpaq1712[address] [place], [place] [address]Dr. Grace BestAnion gap [Moles/Vol]12.7 mmol/LNormalThe [facility] CenterComment on above:Performed By: #### CMP ####[facility] Cmfwqetccy4656[address] [place], [place] [address]Dr.Grace ChangAST [Catalytic activity/Vol]10 U/L Critically hsy97-78Ppe [facility] CenterComment on above:Performed By: #### CMP ####[facility] Tiqqijoosw7075[address] [place], [place] [address]Dr. Grace ChangBilirubin [Mass/Vol]0.4 mg/dLNormal0.2-1.0The [facility] Comment on above:Performed By: #### CMP ####[facility] Tacbvlidxg[address] [place] [address]Dr.Yilan ChangCalcium [Mass/Vol]8.2 mg/dL Critically low8.5-10.1The [facility] CenterComment on above:Performed By: #### CMP ####[facility] Tfmcvenzuj76[address] [place] [address]Dr. Yilan ChangChloride [Moles/Vol]102 mmol/ZBujrvx12-541Mmk [facility] Comment on above:Performed By: #### CMP ####[facility] Ovfisqlrpq9067[address] [place], [place] [address]Dr.Yilan ChangCO2 [Moles/Vol]24.8 mmol/L Qzvock09.0-32.0The [facility] CenterComment on above:Performed By: #### CMP ####[facility] Kknelviaej9744[address] [place], [place] [address]Dr. Yilan ChangCreatinine [Mass/Vol]0.46 mg/dLCritically low0.55-1.02The [facility] CenterComment on above:Performed By: #### CMP ####[facility] Mapjsucnaf5844[address] [place], [place] [address]Dr.Yilan ChangEGFR-AF EGYPTIAN>60Normal>=60The [facility] CenterComment on above:Performed By: #### CMP ####[facility] Kfwvstisrj1310[address] [place], [place] [address]Dr. Yilan ChangEGFR-NON AF EGYPTIAN>60Normal>=60The [facility] CenterComment on above:Performed By: #### CMP ####[facility] Rhoafsjmyj7678[address] [place], [place] [address]Dr.Yilan ChangGlobulin (S) [Mass/Vol]3.2 g/dLNormalThe [facility] CenterComment on above:Performed By: #### CMP ####[facility] Nphlgvlwur8634[address] [place], [place] [address]Dr.Yilan ChangGlucose [Mass/Vol]177 mg/dLCritically ctzl81-320Trw [facility] CenterComment on above: Performed By: #### CMP ####[facility] Sgbbrpvjpy32[address] [place] [address]Dr.Grace ChangPotassium [Moles/Vol]3.5 mmol/LNormal 3.5-5.1The [facility] CenterComment on above:Performed By: #### CMP ####[facility] Qlezfvungk006[address] [place], [place] [address]Dr.Grace Best Protein [Mass/Vol]5.9 g/dLCritically low6.4-8.2The [facility] CenterComment on above:Performed By: #### CMP ####[facility] Lokycceleh339[address] [place], [place] [address]Dr.Grace ChangSodium [Moles/Vol]136 mmol/LNormal 136-145The [facility] CenterComment on above:Performed By: #### CMP ####[facility] Blxerbzizf948[address] [place], [place] [address]Dr.Grace ChangUrea nitrogen [Mass/Vol]10.0 mg/dLNormal7.0-18.0The [facility] CenterComment on above:Performed By: #### CMP ####[facility] Kwfozupmij9838[address] [place], [place] [address]Dr.Roxannelan ChangUrea nitrogen/Creatinine [Mass ratio] 21.7 mg/mgNormalThe [facility] CenterComasc[facility] on above:Performed By: #### CMP ####[facility] Fkpxhkjzzu4516[address] [place], [place] [address]Dr. Grace BestCBC AUTO DIFFon 34-20-9659KFDE #0.0 103/ulNormal0.0-0.1The [facility] CenterComasc[facility] on above:Performed By: #### CBC ####[facility] Zelzdpegsu8985[address] [place], [place] [address]Dr.Roxannelan ChangBasophils/100 WBC (Bld)0.3 %Normal0.2-2.0The [facility] CenterComment on above:Performed By: #### CBC ####[facility] Jnnnbprbfk1850[address] [place], [place] [address]Dr.Yilan ChangEO #0.0 103/ulNormal0.0-0.7The [facility] CenterComment on above:Performed By: #### CBC ####[facility] Egmyhyrpob0965[address] [place], [place] [address]Dr.Yilan ChangEosinophils/100 WBC (Bld)0.2 %Critically low0.9-7.0The [facility] CenterComment on above:Performed By: #### CBC ####[facility] Depegrnyek634[address] [place], [place] [address]Dr. Roxannelan ChangErythrocyte distribution width (RBC) [Ratio]14.6 %Fmzhoy22.0-15.0The [facility] CenterComment on above:Performed By: #### CBC ####[facility] Fgswixzver5130[address] [place], [place] [address]Dr.Grace ChangHematocrit (Bld) [Volume fraction]34.8 %Critically low36.0-48.0The [facility] CenterComment on above:Performed By: #### CBC ####[facility] Cahkmyugll5716[address] [place], [place] [address]Dr.Grace ChangHemoglobin (Bld) [Mass/Vol]11.0 g/dL Critically low12.0-16.0The [facility] CenterComment on above:Result Comment: fluids givenPerformed By: #### CBC ####[facility] Dovswtjckf4946[address] [place], [place] [address]Dr.Yilan ChangIG #0.01 10e3/ulNormal0.00-0.03The [facility] CenterComment on above:Performed By: #### CBC ####[facility] Zfleawijhe0769[address] [place], [place] [address]Dr.Roxannelan ChangIG %0.2 %Normal 0.0-0.5The [facility] CenterComment on above:Performed By: #### CBC ####[facility] Jgzcqyfnvx439[address] [place], [place] [address]Dr.Yilan ChangLYMPH #1.2 103/ulNormal1.2-3.8The [facility] CenterComment on above:Performed By: #### CBC ####[facility] Kqgfcsubko[address] [place] [address].Grace BestLymphocytes/100 WBC (Bld)21.4 %Cagxvq18.5-60.0The [facility] CenterComment on above:Performed By: #### CBC ####[facility] [address]viyskr[address] [place] [address]Dr.Grace BestMANUAL DIFF REQ NONormalThe [facility] CenterComment on above:Performed By: #### CBC ####[facility] Gflnoarold8538[address] [place], [place] [address]Dr. Grace BestH (RBC) [Entitic mass]28.6 ivYvjksg78.7-34.0The [facility] Comment on above:Performed By: #### CBC ####[facility] Pyzsoufzgd8465[address] [place], [place] [address]Dr.Grace BestHC (RBC) [Mass/Vol]31.6 g/dL Aifbrk79.9-35.2The [facility] CenterComment on above:Performed By: #### CBC ####[facility] Nhkarwokxo089[address] [place], [place] [address]Dr. Grace BestV (RBC) [Entitic vol]90.6 vPCbgpjl30.0-99.0The [facility] Comment on above:Performed By: #### CBC ####[facility] Pcavudgkju8378[address] [place], [place] [address]Dr.Grace BestMONO #0.5 103/ulNormal0.3-0.8 The [facility] CenterComment on above:Performed By: #### CBC ####[facility] Vxrxyxfvxf1539[address] [place], [place] [address]Dr.Grace Best Monocytes/100 WBC (Bld)9.0 %Normal1.7-12.0The [facility] CenterComment on above: Performed By: #### CBC ####[facility] Qfjrrzhfqh9549[address] [place], [place] [address]Dr.Grace BestNEUT #4.0 103/ulNormal1.4-6.5The [facility] CenterComment on above:Performed By: #### CBC ####[facility] Qvizfkkumk29[address] [place] [address]Dr.Grace BestNeutrophils/100 WBC (Bld)68.9 %Nqkrni92.0-75.0The [facility] CenterComment on above:Performed By: #### CBC ####[facility] Twgaaeajyu6595[address] [place], [place] [address]Dr.Grace BestPlatelet mean volume (Bld) [Entitic vol]8.5 fLCritically low 9.5-13.5The [facility] CenterComment on above:Performed By: #### CBC ####[facility] Ehqscwvqom0508[address] [place], [place] [address]Dr. Grace ZbiuhPTS972 103/zhQvlxmc932-769Yxa [facility] CenterComment on above: Performed By: #### CBC ####[facility] Xufguuaaoz8[address] [place], [place] [address]Dr.Roxannega NasirRBC3.84 106/ulCritically low4.20-5.40The [facility] CenterComment on above:Performed By: #### CBC ####[facility] Ophywucvdi2565[address] [place], [place] [address]Dr.Grace BestWBC5.8 103/ul Normal4.0-11.0The [facility] CenterComment on above:Performed By: #### CBC ####[facility] Dhexfvaymf908[address] [place], [place] [address]Dr. Grace BestLACTATE/LACTIC ACIDon 25-03-8629Qbddwzl [Moles/Vol]6.0 mmol/L Critically high0.4-1.9The [facility] CenterComment on above:Performed By: #### LACT ####[facility] Ypclrmfoxp238[address] [place], [place] [address]Dr. Roxannega BestMAGNESIUMon 33-92-7567Gmkrgfbtn [Mass/Vol]2.2 mg/dLNormal 1.8-2.4The [facility] CenterComment on above:Performed By: #### MG, T4 ####[facility] Amnwvdqglg915[address] [place], [place] [address]Dr. Yilan [facility] GLUCOSEon 55-86-2160Tsaqhnl [Mass/Vol]269 mg/dL Critically dhgy91-917Byu [facility] CenterComment on above:Performed By: #### POCGLUC ####[facility] Gydggehwnu0626[address] [place], [place] [address]Dr. Yilan ChangGlucose [Mass/Vol]349 mg/dLCritically fssv82-697Wri [facility] CenterComment on above:Performed By: #### POCGLUC ####[facility] Sfabzxkfln6667[address] [place], [place] [address]Dr. Yilan ChangGlucose [Mass/Vol]472 mg/dLCritically trhr30-555Ifk [facility] CenterComment on above: Performed By: #### POCGLUC ####[facility] Aesusahgjr340[address] [place], [place] [address]Dr. Yilan ChangPROF 14(COMP METB)on 81-38-9194Mcywsgw [Mass/Vol]2.8 g/dLCritically low3.4-5.0The [facility] CenterComment on above: Performed By: #### CMP ####[facility] Mtwnbtrlki5389[address] [place], [place] [address]Dr.Yilan ChangAlbumin/Globulin [Mass ratio]0.8 {ratio} NormalThe [facility] CenterComasc[facility] on above:Performed By: #### CMP ####[facility] Myjywcihig9776[address] [place], [place] [address]Dr.Yilan ChangALP [Catalytic activity/Vol]87 U/ZOacuxu92-447Wec [facility] CenterComment on above: Performed By: #### CMP ####[facility] Zmrwpwrrxo109[address] [place], [place] [address]Dr.Yilan ChangALT [Catalytic activity/Vol]11 U/L Critically hin81-05Clh [facility] CenterComment on above:Performed By: #### CMP ####[facility] Fyesyjxlme2770[address] [place], [place] [address]Dr. Yilan ChangAnion gap [Moles/Vol]13.5 mmol/LNormalThe [facility] CenterComment on above:Performed By: #### CMP ####[facility] Cfqfqbfvec[address] [place] [address]Dr.Yilan ChangAST [Catalytic activity/Vol]9 U/L Critically wyw07-22Crn [facility] on above:Performed By: #### CMP ####[facility] Zxcmbjzirm8395[address] [place], [place] [address]Dr. Yilan ChangBilirubin [Mass/Vol]0.1 mg/dLCritically low0.2-1.0The [facility] CenterComment on above:Performed By: #### CMP ####[facility] Myebqiszsw1129[address] [place], [place] [address]Dr.Yilan ChangCalcium [Mass/Vol]8.9 mg/dLNormal8.5-10.1The [facility] CenterCom[facility] on above:Performed By: #### CMP ####[facility] Adfquaqgxm2196[address] [place], [place] [address]Dr.Yilan ChangChloride [Moles/Vol]118 mmol/LCritically ffog89-012Lfk [facility] CenterCom[facility] on above:Performed By: #### CMP ####[facility] Hnadfxvitq6845[address] [place], [place] [address]Dr.Yilan ChangCO2 [Moles/Vol] 22.1 mmol/IKdwtbi01.0-32.0The [facility] CenterCom[facility] on above:Performed By: #### CMP ####[facility] Kdpgqiqgxi46112[address] [place], [place] [address]Dr.Yilan ChangCreatinine [Mass/Vol]0.63 mg/dLNormal0.55-1.02The [facility] CenterCom[facility] on above:Performed By: #### CMP ####[facility] Xgmpheboca7465[address] [place], [place] [address]Dr.Yilan ChangEGFR-AF EGYPTIAN>60Normal>=60The [facility] CenterComment on above:Performed By: #### CMP ####[facility] Gluorybuex727[address] [place], [place] [address]Dr. Yilan ChangEGFR-NON AF EGYPTIAN>60Normal>=60The [facility] CenterComment on above:Performed By: #### CMP ####[facility] Izikfcpdbz85232[address] [place], [place] [address]Dr.Yilan ChangGlobulin (S) [Mass/Vol]3.6 g/dLNormHenry County HospitalComment on above:Performed By: #### CMP ####[facility] Beljvtdgkn3625[address] [place], [place] [address]Dr.Yilan ChangGlucose [Mass/Vol]222 mg/dLCritically lixo93-613Xrn [facility] CenterComment on above: Performed By: #### CMP ####[facility] Iedebgxwaw2379[address] [place], [place] [address]Dr.Yilan ChangPotassium [Moles/Vol]5.3 mmol/L Critically high3.5-5.1The [facility] CenterComment on above:Performed By: #### CMP ####[facility] Jikpwspauj898[address] [place], [place] [address]Dr. Yilan ChangProtein [Mass/Vol]6.4 g/dLNormal6.4-8.2The [facility] CenterComment on above:Performed By: #### CMP ####[facility] Ubgocetoeh560[address] [place], [place] [address]Dr.Yilan ChangSodium [Moles/Vol]151 mmol/LCritically opvy015-813Tvg [facility] CenterComment on above:Performed By: #### CMP ####[facility] Xvmumnedrt[address] [place], [place] [address]Dr. Yilan ChangUrea nitrogen [Mass/Vol]19.0 mg/dLCritically high7.0-18.0The [facility] CenterComment on above:Performed By: #### CMP ####[facility] Leytwafhav[address] [place], [place] [address]Dr.Yilan ChangUrea nitrogen/Creatinine [Mass ratio]30.1 mg/mgNoKettering Health Main CampusComascension [facility] on above:Performed By: #### CMP ####[facility] Ddvklallti5107[address] [place], [place] [address]Dr.Yilan UcrhxD6sn 26-01-6028J4 [Mass/Vol]8.20 ug/dL Normal4.80-13.90The [facility] CenterComment on above:Performed By: #### MG, T4 ####[facility] Wxaxltukmq0019[address] [place], [place] [address]Dr. Yilan ChangACETONE SERUMon 02-70-7475SSLEWHVSpqlatumKwadplWMGVTMHMRzs [facility] CenterComment on above:Performed By: #### ACETON ####[facility] Ledbvfxmjn989[address] [place], [place] [address]Dr. Yilan ChangAMMONIAon 76-27-3039Ollytkh (P) [Moles/Vol]10 umol/LCritically fbc63-83Uig [facility] CenterComment on above:Performed By: #### AMM ####[facility] Jcjfpnucdg0040[address] [place], [place] [address]Dr.Yilan ChangCBC AUTO DIFFon 75-06-6327AYKH #0.0 103/ulNormal0.0-0.1The [facility] Systemment on above: Performed By: #### CBC ####[facility] Yocngjkgny5946[address] [place], [place] [address]Dr.Yilan ChangBasophils/100 WBC (Bld)0.2 %Normal 0.2-2.0The [facility] CenterComment on above:Performed By: #### CBC ####[facility] Azpclsyijh9801[address] [place], [place] [address]Dr.Yilan ChangEO # 0.0 103/ulNormal0.0-0.7The [facility] Systemment on above:Performed By: #### CBC ####[facility] Cdiqjmevvh8045[address] [place], [place] [address]Dr. Yilan ChangEosinophils/100 WBC (Bld)0.0 %Critically low0.9-7.0The [facility] CenterComment on above:Performed By: #### CBC ####[facility] Qplxvmpyxy4186[address] [place], [place] [address]Dr.Yilan ChangErythrocyte distribution width (RBC) [Ratio]14.6 %Nnjwyw15.0-15.0The [facility] Comment on above:Performed By: #### CBC ####[facility] Osrvyvbube[address] [place], [place] [address]Dr.Grace ChangHematocrit (Bld) [Volume fraction]41.4 %Qyfmyi53.0-48.0The [facility] CenterComment on above:Performed By: #### CBC ####[facility] Hnunihully6888[address] [place], [place] [address]Dr.Grace ChangHemoglobin (Bld) [Mass/Vol]13.4 g/xNLlcukt77.0-16.0The [facility] HospitalComment on above:Performed By: #### CBC ####[facility] Ilhwzewtqq9967[address] [place], [place] [address]Dr.Yilan ChangIG #0.01 10e3/ulNormal0.00-0.03The [facility] CenterComment on above:Performed By: #### CBC ####[facility] Lafujsorce9849[address] [place], [place] [address]Dr. Roxannelan ChangIG %0.2 %Normal0.0-0.5The [facility] CenterComment on above:Performed By: #### CBC ####[facility] Dixyltthyw7939[address] [place], [place] [address]Dr.Roxannega ChangLYMPH #0.5 103/ulCritically low1.2-3.8The [facility] CenterComment on above:Performed By: #### CBC ####[facility] Tovyfiaqiw7215[address] [place], [place] [address]Dr.Roxannega BestLymphocytes/100 WBC (Bld)8.9 %Critically low20.5-60.0The [facility] CenterComment on above: Performed By: #### CBC ####[facility] Ukyjbpnslq2913[address] [place], [place] [address]Dr.Roxannelan ChangMANUAL DIFF REQNONormalThe [facility] CenterComment on above:Performed By: #### CBC ####[facility] Mzsxqxpvge37[address] [place], [place] [address]Dr.Grace BestMCH (RBC) [Entitic mass]28.8 zrZwgeci98.7-34.0The [facility] HospitalComment on above: Performed By: #### CBC ####[facility] [address]paet[address] [place] [address]Dr.Grace NasirMCHC (RBC) [Mass/Vol]32.4 g/dLNormal 29.9-35.2The [facility] CenterComment on above:Performed By: #### CBC ####[facility] Ouvxhggjsi[address] [place] [address]Dr. Grace BestMCV (RBC) [Entitic vol]88.8 sQCxgeaz77.0-99.0The [facility] Comment on above:Performed By: #### CBC ####[facility] Zekwgrhoya55[address] [place], [place] [address]Dr.Grace BestMONO #0.2 103/ulCritically low 0.3-0.8The [facility] CenterComment on above:Performed By: #### CBC ####[facility] Zpwmgrsdtk6518[address] [place], [place] [address]Dr.Grace Best Monocytes/100 WBC (Bld)3.2 %Normal1.7-12.0The [facility] CenterComment on above: Performed By: #### CBC ####[facility] Zqnoieatki[address] [place], [place] [address]Dr.Grace BestNEUT #4.9 103/ulNormal1.4-6.5The [facility] CenterComment on above:Performed By: #### CBC ####[facility] Eaaneshqzs5187[address] [place], [place] [address]Dr.Grace BestNeutrophils/100 WBC (Bld)87.5 %Critically high43.0-75.0The [facility] HospitalComment on above: Performed By: #### CBC ####[facility] Jiowlvscqu[address] [place], [place] [address]Dr.Grace BestPlatelet mean volume (Bld) [Entitic vol] 9.0 fLCritically low9.5-13.5The [facility] CenterComment on above:Performed By: #### CBC ####[facility] Ukepnbjihr7935[address] [place], [place] [address]Dr.Grace BestPLT544 103/ulCritically cwhz856-092Jpe [facility] Comment on above:Performed By: #### CBC ####[facility] [address]xz[address]ndlfy[address] [place] [id number].Grace BestRBC4.66 106/ulNormal4.20-5.40 The [facility] CenterComment on above:Performed By: #### CBC ####[facility] Rrkhegpmpa9[address] [place] [address]Dr.Grace BestWBC5.6 103/ulNormal4.0-11.0The [facility] CenterComment on above:Performed By: #### CBC ####[facility] [address]nghbdr[address] [place] [id number]. Grace NasirCT STROKE HEAD WOon 27-55-9441RH STROKE HEAD WONormalThe [facility] CenterCULTURE BLOODon 85-53-9724Miwnekqfdin examination of blood, culture Culture Observations: NO GROWTH AT 5 DAYS.NormalThe [facility] CenterComment on above:Performed By: #### BLDCX2 ####[facility] Fcjxcnxqgh[address] [place] [id number]. Grace BestMicroscopic examination of blood, cultureCulture Observations: NO GROWTH AT 5 DAYS.NormalMain Campus Medical CenterComment on above:Performed By: #### BLDCX1 ####[facility] [address]xf[address]jfljf[address] [place] [id number]. Grace BestCovid-19 PCR (CVDTBH)on 98-62-4267ICFG-CoV-2 (COVID-19) RNA LOUISE+probe Ql (Unsp spec)Not detectedNormalNOT DETECTEDMain Campus Medical Center Comment on above:Result Comment: When [...] for this test is supported by the Social Worker Assistant of Health and Human Service's declaration that [...] no longer be used).Performed By: #### CVDTBH ####[facility] Jpgbucozni[address] [place] [address]Dr. Grace BestDRUG SCREEN RAPID (URINE)on 76-65-3858DSTWaoscriyFshmueWHOFFVVYDna [facility] HospitalComment on above:Performed By: #### VIOLETA GR DRUGRPD ####[facility] Trpsdswopa[address] [place], [place] [address]Dr. Grace BestBARNegative NormalNEGATIVEMain Campus Medical CenterComment on above:Performed By: #### VIOLETA GR DRUGRPD ####[facility] Mrufpirngj[address] [place], [place] [address]Dr. Grace ChangBUPNegativeNormalNEGATIVEMain Campus Medical CenterComment on above:Performed By: #### VIOLETA GR DRUGRPD ####[facility] Lkldkmxzwn[address] [place], [place] [address]Dr. Grace BestBZONegative NormalNEGATIVEMain Campus Medical CenterComment on above:Performed By: #### VIOLETA GR DRUGRPD ####[facility] Skpnitlkwv[address] [place], [place] [address]Dr. Grace ChangCOCNegativeNormalNEGATIVEBerger Hospital HospitalComment on above:Performed By: #### VIOLETA GR DRUGRPD ####[facility] Zbgaddvwqq[address] [place], [place] [address]Dr. Grace BestCUT-OFFSSEE [facility] Children's HospitalComment on above:Result Comment: AMP (Amphetamine): 500ng/mL, BAR (Barbituates): 200 ng/mL, BZO (Benzodiazepines): 15 0 ng/mL, BUP (Buprenorphine): 10 ng/mL, MATTHEW (Cocaine): 150 ng/mL, mAMP (Methamphetamine): 500 ng/mL, MTD (Methadone): 200 ng/mL, OPI (Opiates): 100 ng/mL, OXY (Oxycodone): 100 ng/mL, PCP (Phencyclidine): 25 ng/mL, PPX (Propoxyphene): 300 ng/mL, THC (Cannabinoids): 50 ng/mL, TCA (Trycyclic Antidepressants): 300 ng/mLPerformed By: #### UMICRO, ERUR, DRUGRPD ####[facility] [id number] [place], [place] [address]Dr. Grace BestDRUG CUT HEADERDRUG CLASS TEST SYSTEM CUT-OFF CONCENTRATIONS ARE FOLLOWS:NormalMain Campus Medical CenterComment on above:Performed By: #### UMICRO ERUR, DRUGRPD ####[facility] [id number] [place], [place] [address]Dr. Grace BestmAMPNegativeNormalNEGATIVEMain Campus Medical CenterComment on above: Performed By: #### UMICRO, ERUR, DRUGRPD ####[facility] [id number] [place], [place] [address]Dr. Grace BestMTDNegativeNormalNEGATIVEMain Campus Medical CenterComment on above:Performed By: #### UMICRO, ERUR, DRUGRPD ####[facility] [id number] [place], [place] [address]Dr. Grace BestOPINegativeNormalNEGATIVEMain Campus Medical CenterComment on above: Performed By: #### UMICRO, ERUR, DRUGRPD ####[facility] [id number] [place], [place] [address]Dr. Grace ChangOXYNegativeNormalNEGATIVEBerger Hospital HospitalComment on above:Performed By: #### UMICRO, ERUR, DRUGRPD ####[facility] [address] [place], [place] [address]Dr. Grace BestPCPNegativeNormalNEGATIVEMain Campus Medical CenterComment on above: Performed By: #### UMICRO, ERUR, DRUGRPD ####[facility] [address] [place] [address]Dr. Yilan ChangPPXNegativeNormalNEGATIVEMain Campus Medical CenterComment on above:Performed By: #### TEVIN GRR, DRUGRPD ####[facility] E[address]kvuyljj[address] [place] [address]Dr. Yilan ChangTCANegativeNormalNEGATIVEMain Campus Medical CenterComment on above: Performed By: #### TEVIN GRR, DRUGRPD ####[facility] Tdakgvkain[address] [place] [address]Dr. Yilan ChangTHCNegativeNormalNEGATIVEMain Campus Medical CenterComment on above:Performed By: #### TEVIN GRR, DRUGRPD ####[facility] Wbpfzrwzzk[address] [place] [address]Dr. Yilan ChangER URINE PROFILEon 66-69-8222Zofjubavf Ql (U)NegativeNormalNEGATIVE The [facility] Medical CenterComment on above:Performed By: #### TEVIN GRR, DRUGRPD ####[facility] Rlnogcbbdb[address] [place], [place] [address]Dr. Yilan ChangClarity (U)SL CLOUDYAbnormalCLEARThe [facility] CenterComascension [facility] on above:Performed By: #### TEVIN GRR, DRUGRPD ####[facility] [address]xvuivwfhv[address] [place], [place] [address]Dr. Yilan ChangColor (U)LT. YELLOWNormalYELLOWMain Campus Medical CenterComment on above:Performed By: #### TEVIN GRR, DRUGRPD ####[facility] [address]lqtypvut[address] [place], [place] [address]Dr. Yilan ChangERUAHDA micrscopic examination will be performed if indicated.NormalThe [facility] Medical CenterComment on above:Performed By: #### SIMÓN ERUR, DRUGRPD ####[facility] [address]uwhwmjdrv[address] [place], [place] [address]Dr. Yilan ChangGlucose Ql (U)>1000AbnormalNEGATIVEThe [facility] HospitalComment on above:Performed By: #### UMICRO, ERUR, DRUGRPD ####[facility] [address]atnqn[address] [place] [address]Dr. Yilan ChangHemoglobin Ql (U)TRACE-INTACTAbnormalNEGATIVEThe [facility] Comment on above:Performed By: #### UMICRO, ERUR, DRUGRPD ####[facility] Pihsnebnwi[address] [place] [address]Dr. Yilan ChangKetones Ql (U) NegativeNormalNEGATIVEBerger Hospital HospitalComment on above:Performed By: #### UMICRO, ERUR, DRUGRPD ####[facility] Ierursqrlk[address] [place], [place] [address]Dr. Grace BestLEUKOCYTESMODERATEAbnormalNEGATIVEThe [facility] HospitalComment on above:Performed By: #### UMICRO, ERUR, DRUGRPD ####[facility] Zsgqtbbjda[address] [place], [place] [address]Dr. Grace NasirNitrite Ql (U)PositiveAbnormalNEGATIVEBerger Hospital HospitalComment on above:Performed By: #### UMICZOË ERUR, DRUGRPD ####[facility] Facaiauxyp[address] [place], [place] [address]Dr. Roxannega ChangpH (U)[pH] Abnormal5-9The [facility] CenterComment on above:Performed By: #### UMICRO, ERUR, DRUGRPD ####[facility] Qxegpbztew[address] [place], [place] [address]Dr. Grace NasirSPEC GRAVITY1.789Kwyity2.005-<=1.025The [facility] HospitalComment on above:Performed By: #### UMICRO, ERUR, DRUGRPD ####[facility] Onnlmitixk[address] [place], [place] [address]Dr. Grace BestUA PROTEINNegativeNormalNEGATIVE/ TRACEThe [facility]bee HospitalComment on above: Performed By: #### UMICRO, ERUR, DRUGRPD ####[facility] O[address]jwrggew[address] [place] [address]Dr. Grace NasirUR MICRO INDINDICATEDNormal The [facility] CenterComment on above:Performed By: #### VIOLETA GR DRUGRPD ####[facility] Awsnegndlb[address] [place], [place] [address]Dr. Grace BestUrobilinogen Qn (U)0.2 {Ancelmo'U}/dLNormal0.2 - 1.0The [facility] CenterComment on above:Performed By: #### VIOLETA GR DRUGRPD ####[facility] Dbpefoqeqr[address] [place] [address]Dr. Roxannega Best LACTATE/LACTIC ACIDon 04-91-7204Eqhjdnq [Moles/Vol]3.6 mmol/LCritically high 0.4-1.9The [facility] CenterComment on above:Performed By: #### LACT ####[facility] Ykwkyhtfmm[address] [place], [place] [address]Dr. Roxannega NasirLIPASEon 07-30-5175Rwlupd [Catalytic activity/Vol]209.0 U/LNormal 73.0-393.0The [facility] CenterComment on above:Performed By: #### TSH, LIPA, HSTROPN, CMP ####[facility] Qnclmukmlw[address] [place], [place] [address]Dr. Grace BestPH VENOUS BLOODon 52-18-0241UHA4 JNILGO53.8 mmHgCritically low40.0-52.0The [facility] CenterComment on above:Performed By: #### PHVEN ####[facility] Znngvseytq[address] [place], [place] [address]Dr. Grace BestpH VENOUS7.688Ilvmao6.330-7.430The [facility] CenterComment on above: Performed By: #### PHVEN ####[facility] Cobjonhtfz[address] [place], [place] [address]Dr. Grace NasirPOINT OF CARE GLUCOSEon 03-29-2022 POCGLUC>600Critically khym72-862Pgm [facility] CenterComment on above:Result Comment: Result Not ConfirmedPerformed By: #### POCGLUC ####[facility] [address]vdnws[address] [place] [address]Dr. Yilan ChangPROF 14(COMP METB)on 44-84-5128Aoxxhad [Mass/Vol]3.8 g/dLNormal3.4-5.0[facility] Comment on above:Performed By: #### TSH, LIPA, HSTROPN, CMP ####[facility] Ns[address]qyvsje[address] [place] [address]Dr. Yilan Best Albumin/Globulin [Mass ratio]0.9 {ratio}NormalThe [facility] CenterComment on above:Performed By: #### TSH, LIPA, HSTROPN, CMP ####[facility] Uncnbcvnmt0[address] [place], [place] [address]Dr. Yilan ChangALP [Catalytic activity/Vol]112 U/XXkdmtr12-164Gwz [facility] CenterComment on above:Performed By: #### TSH, LIPA, HSTROPN, CMP ####[facility] Jbmpatrckr[address] [place] [address]Dr. Yilan ChangALT [Catalytic activity/Vol]16 U/L Mhlzuf17-46Eup [facility] CenterComment on above:Performed By: #### TSH, LIPA, HSTROPN, CMP ####[facility] Ehysmeespb[address] [place] [address]Dr. Yilan ChangAnion gap [Moles/Vol]18.6 mmol/LNormalThe [facility] Comment on above:Performed By: #### TSH, LIPA, HSTROPN, CMP ####[facility] S[address]wvcsuk23[address] [place] [address]Dr. Yilan ChangAST [Catalytic activity/Vol]12 U/LCritically aoc76-12Gzg [facility] CenterComment on above:Performed By: #### TSH, LIPA, HSTROPN, CMP ####[facility] Yitphchptk[address] [place], [place] [address]Dr. Yilan ChangBilirubin [Mass/Vol]0.3 mg/dLNormal0.2-1.0The [facility] CenterComment on above:Performed By: #### TSH, LIPA, HSTROPN, CMP ####[facility] Tyexdjfstj[address] [place] [address]Dr. Yilan ChangCalcium [Mass/Vol]9.6 mg/dLNormal 8.5-10.1The [facility] CenterComment on above:Performed By: #### TSH, LIPA, HSTROPN, CMP ####[facility] Qnbkewuwwz[address] [place], [place] [address]Dr. Yilan ChangChloride [Moles/Vol]100 mmol/EKzbinx43-998Xcg [facility] CenterComasc[facility] on above:Performed By: #### TSH, LIPA, HSTROPN, CMP ####[facility] Qplzamntod69[address] [place], [place] [address]Dr. Yilan ChangCO2 [Moles/Vol]21.7 mmol/BUxeqfm83.0-32.0The [facility] Systemment on above: Performed By: #### TSH, LIPA, HSTROPN, CMP ####[facility] Edhppgchpy[address] [place], [place] [address]Dr. Yilan ChangCreatinine [Mass/Vol]1.08 mg/dLCritically high0.55-1.02The [facility] on above:Performed By: #### TSH, LIPA, HSTROPN, CMP ####[facility] Myffbjsblf65[address] [place], [place] [address]Dr. Yilan ChangEGFR-AF YQPXCADQ24 mL/min/1.91w0Aaudlk >=60The [facility] on above:Performed By: #### TSH, LIPA, HSTROPN, CMP ####[facility] Igwjxqqevo26[address] [place], [place] [address]Dr. Yilan ChangEGFR-NON AF ESKHQBWP89 mL/min/1.09x2Tqxgtakovc low>=60The [facility] on above:Performed By: #### TSH, LIPA, HSTROPN, CMP ####[facility] Lviqqyarwz[address] [place], [place] [address]Dr. Yilan ChangGlobulin (S) [Mass/Vol]4.3 g/dLNormHenry County HospitalComment on above:Performed By: #### TSH, LIPA, HSTROPN, CMP ####[facility] Azeobjjqux[address] [place] [address]Dr. Yilan ChangGLUC>500 Critically bhne78-715Dub [facility] CenterComment on above:Performed By: #### TSH, LIPA, HSTROPN, CMP ####[facility] Rzmevujmln[address] [place], [place] [address]Dr. Yilan ChangPotassium [Moles/Vol]4.3 mmol/LNormal 3.5-5.1The [facility] CenterComment on above:Performed By: #### TSH, LIPA, HSTROPN, CMP ####[facility] Ztugxunkcy[address] [place], [place] [address]Dr. Yilan ChangProtein [Mass/Vol]8.1 g/dLNormal6.4-8.2The [facility] CenterComment on above:Performed By: #### TSH, LIPA, HSTROPN, CMP ####[facility] Xwscibrhvp[address] [place], [place] [address]Dr. Yilan Best Sodium [Moles/Vol]136 mmol/VYqwrfv939-970Sgx [facility] CenterComasc[facility] on above: Performed By: #### TSH, LIPA, HSTROPN, CMP ####[facility] Zcvshzihja06[address] [place], [place] [address]Dr. Yilan ChangUrea nitrogen [Mass/Vol]28.0 mg/dLCritically high7.0-18.0The [facility] CenterComment on above:Performed By: #### TSH, LIPA, HSTROPN, CMP ####[facility] Mcviekddas0[address] [place], [place] [address]Dr. Yilan ChangUrea nitrogen/Creatinine [Mass ratio] 25.9 mg/mgNoKettering Health Main CampusComascension [facility] on above:Performed By: #### TSH, LIPA, HSTROPN, CMP ####[facility] Sgbqbyehvy[address] [place], [place] [address]Dr. Yilan ChangPROTIMEon 62-12-9235SXE Coag (PPP) [Relative time]{INR}NormalThe [facility] CenterComment on above:Performed By: #### PT, PTT ####[facility] Xrkqxzctfe[address] [place] [address]Dr. Grace Valenzuela GUIDELINESSEE BELOWNormalThNewark HospitalComment on above: Result Comment: DESIRED INR: 2.0 - 3.0 CONDITIONS NOT LISTED BELOW 2.5 - 3.5 FOR PROSTHETIC HEART VALVE REPLACEMENT 2.5 - 3.5 RECURRENT THROMBOSISPerformed By: #### PT, PTT ####[facility] Cohiikykeh[address] [place] [address]Dr. Grace BestPT Coag (PPP) [Time]9.8 sNormal9.0-11.6The [facility] Comment on above:Performed By: #### PT, PTT ####[facility] Yzbglbqdcw[address] [place], [place] [address]Dr. Grace Monroe 05-03-3405rFNW Coag (Bld) [Time]22.2 sCritically low22.3-36.2[facility] Campus Medical CenterComment on above: Performed By: #### PT, PTT ####[facility] Cegtudfghq[address] [place], [place] [address]Dr. Grace Lepe, HIGH SENSITIVITYon 03-29-2022 HSTROP8.7 pg/mLNormal4.0-51.3The [facility] CenterComment on above:Result Comment: CUT-OFF POINTS HAVE BEEN ESTABLISHED BASED ON THE FOURTH UNIVERSAL DEFINITIONS OF MYOCARDIALINFARCTION. THE UPPER REFERENCE LIMIT (URL) OF TROPONIN, DEFINED THE 99TH PERCENTILE OFcTnI DISTRIBUTION IN A REFERENCE POPULATION, HAS BEEN CONFIRMED THE DECISION THRESHOLDFOR ME DIAGNOSIS. Performed By: #### TSH, LIPA, HSTROPN, CMP ####[facility] Weijgwkakl[address] [place], [place] [address]Dr. Grace NogueraHomiladis 50-58-5988BQM4.435 uIU/mLNormal0.358-3.740The [facility] CenterComment on above:Performed By: #### TSH, LIPA, HSTROPN, CMP ####[facility] Migikwimqk[address] [place] [address]Dr. Grace BestURINE MICROSCOPIC ONLYon 03-29-2022 BACTERIASMALLAbnormalNONE SEENThe [facility] on above:Performed By: #### TEVIN GRR, DRUGRPD ####[facility] Nvuhtahlos[address] [place] [address]Dr. Grace BestBacteria identified Cx Nom (U)INDICATED NormalThe [facility] CenterComment on above:Performed By: #### SIMÓN ERUR, DRUGRPD ####[facility] Enzwzqnsjy[address] [place] [address]Dr. Grace BestCASTNONE SEENNormalNONE SEENThe [facility] on above:Performed By: #### TEVIN GRR, DRUGRPD ####[facility] V[address]jxaxcdk[address] [place] [address]Dr. Grace BestCrystals LM Nom (Urine sed)SEENAbnormalNONE SEENThe [facility] on above: Performed By: #### TEVIN GRR, DRUGRPD ####[facility] Gzomscmkci[address] [place] [address]Dr. Grace ChangEpithelial cells LM Ql (Urine sed)FEWAbnormalNONE SEEN /RAREThe [facility] on above:Performed By: #### TEVIN GRR, DRUGRPD ####[facility] Ylfewcxdsy[address] [place] [address]Dr. Grace BestMUCOUSTRACEAbnormalNONE SEENThe [facility] on above:Performed By: #### TEVIN GRR, DRUGRPD ####[facility] Eqovryakzd[address] [place], [place] [address]Dr. Grace BestXdtkvXHS6-5Qgtteg2-4Tif [facility] Systemment on above:Performed By: #### UMABHAY ERUR, DRUGRPD ####[facility] Qsyarchlqr57[address] [place] [address]Dr. Grace BestWBC5-10AbnormalNONE SEENThe [facility] HospitalComment on above:Performed By: #### TEVIN GRR, DRUGRPD ####[facility] Lxihyfjwty[address] [place], [place] [address]Dr. Yilan ChangXR CHEST 1 Von 64-37-7533FS CHEST 1 VNormalProvidence Hospital AUTO DIFFon 38-34-0888RXXD #0.0 103/ulNormal0.0-0.1The [facility] HospitalComment on above: Performed By: #### CBC ####[facility] Lmlodmqhno4[address] [place], [place] [address]Dr.Yilan ChangBasophils/100 WBC (Bld)0.1 %Critically low0.2-2.0The [facility] CenterComment on above:Performed By: #### CBC ####[facility] Jjtwwdqcrc[address] [place], [place] [address]Dr. Yilan ChangEO #0.0 103/ulNormal0.0-0.7The [facility] CenterComment on above: Performed By: #### CBC ####[facility] Ftwdbeztcg7[address] [place], [place] [address]Dr.Yilan ChangEosinophils/100 WBC (Bld)0.0 %Critically low0.9-7.0The [facility] CenterComasc[facility] on above:Performed By: #### CBC ####[facility] Oehfbmfpgu[address] [place], [place] [address]Dr. Yilan ChangErythrocyte distribution width (RBC) [Ratio]14.5 %Ngcnou91.0-15.0The [facility] CenterComment on above:Performed By: #### CBC ####[facility] Uilpcfcblm[address] [place], [place] [address]Dr.Roxannelan ChangHematocrit (Bld) [Volume fraction]34.0 %Critically low36.0-48.0The [facility] CenterComment on above:Performed By: #### CBC ####[facility] Bwqjowyork[address] [place], [place] [address]Dr.Grace ChangHemoglobin (Bld) [Mass/Vol]11.0 g/dL Critically low12.0-16.0The [facility] CenterComment on above:Performed By: #### CBC ####[facility] Assdmrwbms62[address] [place], [place] [address]Dr. Roxannega BestIG #0.02 10e3/ulNormal0.00-0.03The [facility] CenterComment on above: Performed By: #### CBC ####[facility] Gppxevknly24[address] [place] [address]Dr.Grace BestIG %0.2 %Normal0.0-0.5The [facility] HospitalComment on above:Performed By: #### CBC ####[facility] Aaxijrxvzf43[address] [place], [place] [address]Dr.Grace BestLYMPH #0.7 103/ulCritically low1.2-3.8The [facility] HospitalComment on above:Performed By: #### CBC ####[facility] Oxjauynnfy[address] [place], [place] [address]Dr.Grace BestBertamphocytes/100 WBC (Bld)9.2 %Critically low20.5-60.0The [facility] CenterComment on above:Performed By: #### CBC ####[facility] Yxfiaxxuxg2[address] [place], [place] [address]Dr.Grace BestMANUAL DIFF REQ NONormalThe [facility] CenterComment on above:Performed By: #### CBC ####[facility] Aoaqzudrlp24[address] [place], [place] [address]Dr. Grace BestARNOT [facility] (RBC) [Entitic mass]29.6 jbYmhbrg43.7-34.0The [facility] Comment on above:Performed By: #### CBC ####[facility] Colbbewquu8[address] [place], [place] [address]Dr.Grace BestHC (RBC) [Mass/Vol]32.4 g/dL Otgusc48.9-35.2The [facility] CenterComment on above:Performed By: #### CBC ####[facility] Bqfhkadvjc85[address] [place], [place] [address]Dr. Grace BestV (RBC) [Entitic vol]91.4 uLMqnyoz79.0-99.0The [facility] Comment on above:Performed By: #### CBC ####[facility] Ytiigxlwnx74[address] [place], [place] [address]Dr.Grace BestMONO #0.6 103/ulNormal0.3-0.8 The [facility] CenterComment on above:Performed By: #### CBC ####[facility] Mcovxiwuxy55[address] [place], [place] [address]Dr.Grace Best Monocytes/100 WBC (Bld)7.2 %Normal1.7-12.0The [facility] CenterComment on above: Performed By: #### CBC ####[facility] Pgbluxfnys[address] [place], [place] [address]Dr.Grace BestNEUT #6.7 103/ulCritically high1.4-6.5 The [facility] CenterComment on above:Performed By: #### CBC ####[facility] Vgvsfzovkl[address] [place], [place] [address]Dr.Grace Best Neutrophils/100 WBC (Bld)83.3 %Critically high43.0-75.0The [facility] Comment on above:Performed By: #### CBC ####[facility] Vduaophdpa[address] [place], [place] [address]Dr.Grace BestPlatelet mean volume (Bld) [Entitic vol]8.8 fLCritically low9.5-13.5The [facility] CenterComment on above: Performed By: #### CBC ####[facility] Zwxdumnlbt[address] [place], [place] [address]Dr.Grace BestPLT370 103/ubWarmns110-054Fht [facility] CenterComment on above:Performed By: #### CBC ####[facility] Uhlltitrar0[address] [place], [place] [address]Dr.Grace BestRBC3.72 106/ul Critically low4.20-5.40The [facility] CenterComment on above:Performed By: #### CBC ####[facility] Fhcqohexzg[address] [place], [place] [address]Dr. Yilan ChangWBC8.0 103/ulNormal4.0-11.0The [facility] CenterComment on above: Performed By: #### CBC ####[facility] Aesbueutyh[address] [place], [place] [address]Dr.Yilan ChangBASO #0.0 103/ulNormal0.0-0.1The [facility] CenterComment on above:Performed By: #### CBC ####[facility] Ziwqcmnkax6[address] [place], [place] [address]Dr.Yilan ChangBasophils/100 WBC (Bld)0.2 %Normal0.2-2.0The [facility] CenterComment on above:Performed By: #### CBC ####[facility] Cemznswwjs[address] [place], [place] [address]Dr.Yilan ChangEO #0.0 103/ulNormal0.0-0.7The [facility] CenterComment on above:Performed By: #### CBC ####[facility] Wlbvagatgu[address] [place], [place] [address]Dr.Yilan ChangEosinophils/100 WBC (Bld)0.0 %Critically low0.9-7.0The [facility] CenterComment on above:Performed By: #### CBC ####[facility] Lhfqlrsuyz[address] [place], [place] [address]Dr. Grace ChangErythrocyte distribution width (RBC) [Ratio]14.4 %Jrjmsm30.0-15.0The [facility] CenterComment on above:Performed By: #### CBC ####[facility] L[address]bjbpwhg[address] [place], [place] [address]Dr.Roxannega ChangHematocrit (Bld) [Volume fraction]39.4 %Fkjuxb74.0-48.0The [facility] CenterComment on above:Performed By: #### CBC ####[facility] Kwfspsqdhh[address] [place], [place] [address]Dr.Roxannega ChangHemoglobin (Bld) [Mass/Vol]12.9 g/dL Ckhbcy07.0-16.0The [facility] CenterComment on above:Performed By: #### CBC ####[facility] Xhxacnedet[address] [place] [address]Dr. Grace ChangIG #0.03 10e3/ulNormal0.00-0.03The [facility] CenterComment on above: Performed By: #### CBC ####[facility] Ywnhymrwdx24[address] [place] [address]Dr.Grace ChangIG %0.3 %Normal0.0-0.5The [facility] CenterComment on above:Performed By: #### CBC ####[facility] Wbcrdlgxcd6421 [place] [address]Dr.Grace BestLYMPH #0.8 103/ulCritically low1.2-3.8The [facility] CenterComment on above:Performed By: #### CBC ####[facility] Wsztfzabrf70[address] [place] [address]Dr.Grace BestLymphocytes/100 WBC (Bld)7.7 %Critically low20.5-60.0The [facility] CenterComment on above:Performed By: #### CBC ####[facility] Zwygxacoqi5[address] [place] [address]Dr.Grace BestMANUAL DIFF REQ NONormalThe [facility] CenterComment on above:Performed By: #### CBC ####[facility] Buwsjjkwxv65[address] [place] [address]Dr. Grace BestARNOT [facility] (RBC) [Entitic mass]29.3 buQnzuga75.7-34.0The [facility] Comment on above:Performed By: #### CBC ####[facility] Mxrtcikpkm0[address] [place], [place] [address]Dr.Grace BestHC (RBC) [Mass/Vol]32.7 g/dL Lynzad33.9-35.2The [facility] CenterComment on above:Performed By: #### CBC ####[facility] Gejwnwxets[address] [place], [place] [address]Dr. Grace BestV (RBC) [Entitic vol]89.3 lTKgzbsi44.0-99.0The [facility] Comment on above:Performed By: #### CBC ####[facility] Hpdeckoddn34[address] [place] [address]Dr.Grace BestMONO #0.5 103/ulNormal0.3-0.8 The [facility] CenterComment on above:Performed By: #### CBC ####[facility] Vttwdabihh53[address] [place] [address]Dr.Grace Best Monocytes/100 WBC (Bld)5.3 %Normal1.7-12.0The [facility] CenterComment on above: Performed By: #### CBC ####[facility] Uxogsieyqh[address] [place], [place] [address]Dr.Grace BestNEUT #8.6 103/ulCritically high1.4-6.5 The [facility] CenterComment on above:Performed By: #### CBC ####[facility] Jcbaxdoyrv[address] [place], [place] [address]Dr.Grace Best Neutrophils/100 WBC (Bld)86.5 %Critically high43.0-75.0The [facility] Comment on above:Performed By: #### CBC ####[facility] Vuwqumqeuy[address] [place], [place] [address]Dr.Grace BestPlatelet mean volume (Bld) [Entitic vol]8.6 fLCritically low9.5-13.5The [facility] CenterComment on above: Performed By: #### CBC ####[facility] Rxrrlglzlv[address] [place], [place] [address]Dr.Grace UdaqnSBK759 103/ulCritically mcam989-255Yqe [facility] CenterComment on above:Performed By: #### CBC ####[facility] Vjfzffrjcm[address] [place], [place] [address]Dr.Grace BestRBC4.41 106/ul Normal4.20-5.40The [facility] CenterComment on above:Performed By: #### CBC ####[facility] Unifnsbqhm[address] [place], [place] [address]Dr. Grace DqgyfNKS13.0 103/ulNormal4.0-11.0The [facility] HospitalComment on above: Performed By: #### CBC ####[facility] Nhrjweyxqr[address] [place] [address]Dr.Grace BestCovid-19 PCR (CVDTB)on 03-09-2022 SARS-CoV-2 (COVID-19) RNA LOUISE+probe Ql (Unsp spec)DetectedCritically abnormalNOT DETECTEDThe [facility] CenterComment on above:Result Comment: This test is not yet approved or cleared by the [place] FDA. When there are no FDA-approved or cleared tests available, and other criteria are met, FDA can make tests available under an emergency access mechanism called an Emergency Use Authorization (EUA). The EUA for this test is supported by the Social Worker Assistant of Health and Human Service's declaration that [...] mayno longer be used).Performed By: #### CVDTBH ####[facility] [address]tncwmdiqi[address] [place], [place] [address]Dr. Grace [facility] GLUCOSEon 79-80-9691Dpehaiq [Mass/Vol]429 mg/dLCritically pwzl63-745JwhMain Campus Medical CenterComascension [facility] on above:Performed By: #### POCGLUC ####[facility] X[address]fawqcok[address] [place], [place] [address]Dr. Grace ChangGlucose [Mass/Vol]447 mg/dLCritically rucz66-759RsiMain Campus Medical CenterComascension [facility] on above:Performed By: #### POCGLUC ####[facility] [address]qvvrsiea[address] [place], [place] [address]Dr. RoxanneAshley Regional Medical Center Glucose [Mass/Vol]169 mg/dLCritically ynqu48-695WysSelect Medical Specialty Hospital [facility] [place] on above:Performed By: #### POCGLUC ####[facility] [address]vjswf[address] [place], [place] [address]Dr. RoxanneAshley Regional Medical CenterGlucose [Mass/Vol]150 mg/dLCritically bwnk00-692Irn [facility] HospitalComment on above:Performed By: #### POCGLUC ####[facility] Hbkrqptetu[address] [place] [address]Dr. Yilan ChangGlucose [Mass/Vol]149 mg/dLCritically clzn96-634KulMain Campus Medical Center Comment on above:Performed By: #### POCGLUC ####[facility] Fpcytuljvr25[address] [place] [address]Dr. Yilan ChangGlucose [Mass/Vol]65 mg/dL Critically [id number] [facility] CenterComment on above:Performed By: #### POCGLUC ####[facility] [address] [place] [address]Dr. Yilan ChangPROF 14(COMP METB)on [id number] [Mass/Vol]3.3 g/dL Critically low3.4-5.0The [facility] CenterComment on above:Performed By: #### CMP ####[facility] [address] [place], [place] [address]Dr. Yilan ChangAlbumin/Globulin [Mass ratio]0.9 {ratio}NormalMain Campus Medical Center Comment on above:Performed By: #### CMP ####[facility] [address] [place], [place] [address]Dr.Yilan ChangALP [Catalytic activity/Vol]79 U/MYfoqas31-721Wfk [facility] CenterComment on above:Performed By: #### CMP ####[facility] [address] [place], [place] [address]Dr. Yilan ChangALT [Catalytic activity/Vol]16 U/WCzhyfm02-65Xld [facility] Comment on above:Performed By: #### CMP ####[facility] [id number] [place], [place] [address]Dr.Yilan ChangAnion gap [Moles/Vol]6.9 mmol/LNormalThe [facility] CenterComment on above:Performed By: #### CMP ####[facility] [address]tf[address] [place], [place] [address]Dr. Yilan ChangAST [Catalytic activity/Vol]10 U/LCritically dcj53-46Rut [facility] CenterComment on above:Performed By: #### CMP ####[facility] [address] [place] [address]Dr.Yilan ChangBilirubin [Mass/Vol]0.4 mg/dLNormal0.2-1.0The [facility]c Medical CenterComment on above:Performed By: #### CMP ####[facility] Ggfcnumvsm6[address] [place], [place] [address]Dr.Yilan ChangCalcium [Mass/Vol]8.8 mg/dLNormal8.5-10.1The [facility] CenterComment on above:Performed By: #### CMP ####[facility] Htmbyqncsx0[address] [place], [place] [address]Dr.Yilan ChangChloride [Moles/Vol]99 mmol/WTbbhgo55-327Kfc [facility] CenterCom[facility] on above:Performed By: #### CMP ####[facility] Ibuemnvdpg283[address] [place], [place] [address]Dr.Yilan ChangCO2 [Moles/Vol]33.0 mmol/LCritically high21.0-32.0The [facility] CenterComment on above:Performed By: #### CMP ####[facility] Pfqcxywrsa2849[address] [place], [place] [address]Dr.Yilan ChangCreatinine [Mass/Vol]0.63 mg/dLNormal0.55-1.02The [facility] CenterComment on above: Performed By: #### CMP ####[facility] Ozpclzcaxf8332[address] [place], [place] [address]Dr.Yilan ChangEGFR-AF EGYPTIAN>60Normal>=60The [facility] CenterComment on above:Performed By: #### CMP ####[facility] Bfkhdhrpri9926[address] [place], [place] [address]Dr.Yilan ChangEGFR-NON AF EGYPTIAN>60Normal>=60The [facility] CenterComment on above:Performed By: #### CMP ####[facility] Bumjnxgmru6798[address] [place], [place] [address]Dr. Yilan ChangGlobulin (S) [Mass/Vol]3.6 g/dLNormalThe [facility] CenterComment on above:Performed By: #### CMP ####[facility] Eqbwqbjugx88[address] [place] [id number].Yilan ChangGlucose [Mass/Vol]355 mg/dLCritically xcxo91-356Awu [facility] CenterComment on above:Performed By: #### CMP ####[facility] Jgjcxzvuus7[address] [place] [address]Dr. Yilan ChangPotassium [Moles/Vol]3.9 mmol/LNormal3.5-5.1The [facility] Comment on above:Performed By: #### CMP ####[facility] Pyuphbtpav[address] [place], [place] [address]Dr.Yilan ChangProtein [Mass/Vol]6.9 g/dL Normal6.4-8.2The [facility] CenterComment on above:Performed By: #### CMP ####[facility] Qwtepthgga1185[address] [place], [place] [address]Dr. Yilan ChangSodium [Moles/Vol]135 mmol/LCritically tgi693-869Qyp [facility] CenterComment on above:Performed By: #### CMP ####[facility] Hujamwfnjg4470[address] [place], [place] [address]Dr.Yilan ChangUrea nitrogen [Mass/Vol]14.0 mg/dLNormal7.0-18.0The [facility] CenterComment on above: Performed By: #### CMP ####[facility] W[address]igzzsmiq4[address] [place] [address]Dr.Yilan ChangUrea nitrogen/Creatinine [Mass ratio] 22.2 mg/mgNormalThNewark HospitalComment on above:Performed By: #### CMP ####[facility] Xuvgjrogxy[address] [place], [place] [id number]. Yilan ChangAlbumin [Mass/Vol]4.0 g/dLNormal3.4-5.0The [facility] CenterComment on above:Performed By: #### CMP ####[facility] Gqbjzucmrv[address] [place], [place] [id number].Yilan ChangAlbumin/Globulin [Mass ratio]0.9 {ratio} NormalThe [facility] Medical CenterComment on above:Performed By: #### CMP ####[facility] Femmscbbew2554 [place] [address]Dr.Yilan ChangALP [Catalytic activity/Vol]100 U/ZLfnvoq31-937Byi [facility] CenterComment on above:Performed By: #### CMP ####[facility] Whepkvnbdh0294 [place] [id number].Yilan ChangALT [Catalytic activity/Vol]19 U/LNormal 14-59The [facility] CenterComment on above:Performed By: #### CMP ####[facility] Rpvefyfryi7[address] [place], [place] [address]Dr.Yilan ChangAnion gap [Moles/Vol]9.8 mmol/LNormalThe [facility] CenterComment on above:Performed By: #### CMP ####[facility] Vxcwhgfhno697[address] [place], [place] [address]Dr.Yilan ChangAST [Catalytic activity/Vol]12 U/LCritically uuz57-52Urc [facility] CenterComment on above:Performed By: #### CMP ####[facility] Wkzxdtzugj50[address] [place], [place] [address]Dr.Yilan ChangBilirubin [Mass/Vol]0.4 mg/dLNormal0.2-1.0The [facility] CenterCom[facility] on above:Performed By: #### CMP ####[facility] Dhcexptgac3625[address] [place], [place] [address]Dr.Yilan ChangCalcium [Mass/Vol]9.9 mg/dLNormal8.5-10.1The [facility] CenterComment on above:Performed By: #### CMP ####[facility] Cpxkhhxakn3195[address] [place], [place] [address]Dr.Yilan ChangChloride [Moles/Vol]97 mmol/LCritically iav74-385Kks [facility] CenterComment on above: Performed By: #### CMP ####[facility] Hhuenunqhm1624[address] [place], [place] [address]Dr.Yilan ChangCO2 [Moles/Vol]36.3 mmol/LCritically high21.0-32.0The [facility] CenterComment on above:Performed By: #### CMP ####[facility] Dnzcsxvmll9[address] [place] [address]Dr. Yilan ChangCreatinine [Mass/Vol]0.64 mg/dLNormal0.55-1.02[facility] Comment on above:Performed By: #### CMP ####[facility] Ogveuvjypw9813 [place] [address]Dr.Yilan ChangEGFR-AF EGYPTIAN>60Normal>=60 The [facility] Medical CenterComment on above:Performed By: #### CMP ####[facility] Vpvdebemzw145[address] [place], [place] [address]Dr.Yilan ChangEGFR- NON AF EGYPTIAN>60Normal>=60[facility] CenterComment on above:Performed By: #### CMP ####[facility] Tdeuztmgjy9229[address] [place], [place] [address]Dr.Yilan ChangGlobulin (S) [Mass/Vol]4.3 g/dLNormalThNewark Hospital Comment on above:Performed By: #### CMP ####[facility] Bzxtrlvjwx3577[address] [place], [place] [address]Dr.Yilan ChangGlucose [Mass/Vol]72 mg/dL Critically drp64-973CfdMain Campus Medical CenterComasc[facility] on above:Performed By: #### CMP ####[facility] Xchgmxgecj475[address] [place], [place] [address]Dr. Yilan ChangPotassium [Moles/Vol]3.1 mmol/LCritically low3.5-5.1The [facility] CenterComment on above:Performed By: #### CMP ####[facility] Rxngjdzqdg49112[address] [place], [place] [address]Dr.Yilan ChangProtein [Mass/Vol]8.3 g/dLCritically high6.4-8.2The [facility] CenterComment on above: Performed By: #### CMP ####[facility] Kcbwrqgpyb8286[address] [place], [place] [address]Dr.Yilan ChangSodium [Moles/Vol]140 mmol/LNormal 136-145The [facility] CenterComment on above:Performed By: #### CMP ####[facility] Frixwyqdhq67[address] [place], [place] [address]Dr.Yilan ChangUrea nitrogen [Mass/Vol]21.0 mg/dLCritically high7.0-18.0The [facility] CenterComment on above:Performed By: #### CMP ####[facility] Iutmkwfxpo137[address] [place], [place] [address]Dr.Yilan ChangUrea nitrogen/Creatinine [Mass ratio] 32.8 mg/mgNoKettering Health Main CampusComment on above:Performed By: #### CMP ####[facility] Kstmlrvfbf3518[address] [place], [place] [address]Dr. Yilan ChangXR ABD FLAT UP_PA Raz 12-76-5425ST ABD FLAT UP_PA [facility]Follow [facility] ([facility])on 26-90-0599Cxjsas Up (Endocrinology) No report was sentNormalUWarren State Hospital AUTO DIFFon 80-79-4965WNHN #0.0 103/ul Normal0.0-0.1The [facility] CenterComment on above:Performed By: #### CBC ####[facility] Pandalyqoi0360[address] [place], [place] [address]Dr. Yilan ChangBasophils/100 WBC (Bld)0.5 %Normal0.2-2.0The [facility] CenterComment on above:Performed By: #### CBC ####[facility] Vxhhhugfet228[address] [place], [place] [address]Dr.Yilan ChangEO #0.0 103/ulNormal0.0-0.7The [facility] CenterComment on above:Performed By: #### CBC ####[facility] Iwzsadesjo2274[address] [place], [place] [address]Dr.Yilan ChangEosinophils/100 WBC (Bld)0.3 %Critically low0.9-7.0The [facility] CenterComment on above: Performed By: #### CBC ####[facility] Oerwkfkwdy809[address] [place], [place] [address]Dr.Yilan ChangErythrocyte distribution width (RBC) [Ratio]14.4 %Pughei84.0-15.0The [facility] CenterComment on above:Performed By: #### CBC ####[facility] Fthiywgrol7231 [place] [address]Dr.Grace ChangHematocrit (Bld) [Volume fraction]31.4 %Critically low 36.0-48.0The [facility] CenterComment on above:Performed By: #### CBC ####[facility] Tzzxdnezqy4599[address] [place], [place] [address]Dr. Grace ChangHemoglobin (Bld) [Mass/Vol]10.4 g/dLCritically low12.0-16.0The [facility] CenterComment on above:Performed By: #### CBC ####[facility] Gagiglqadt156[address] [place], [place] [address]Dr.Yilan ChangIG #0.01 10e3/ulNormal0.00-0.03The [facility] CenterComment on above:Performed By: #### CBC ####[facility] Dvficmpwvp7616[address] [place], [place] [address]Dr. Grace ChangIG %0.1 %Normal0.0-0.5The [facility] CenterComment on above:Performed By: #### CBC ####[facility] Lqzmdbprvv727[address] [place], [place] [address]Dr.Grace ChangLYMPH #1.3 103/ulNormal1.2-3.8The [facility] Comment on above:Performed By: #### CBC ####[facility] Dtvhcpplle6644[address] [place], [place] [address]Dr.Grace ChangLymphocytes/100 WBC (Bld)17.9 %Critically low20.5-60.0The [facility] CenterComment on above:Performed By: #### CBC ####[facility] Fepngutmmc4155[address] [place], [place] [address]Dr.Roxannelan ChangMANUAL DIFF REQNONormalThe [facility] CenterComment on above: Performed By: #### CBC ####[facility] Tsgqgrqsjn[address] [place], [place] [address]Dr.Grace BestH (RBC) [Entitic mass]29.5 pgNormal 26.7-34.0The [facility] CenterComment on above:Performed By: #### CBC ####[facility] Oujxlcvpdw495[address] [place] [address]Dr. Grace BestHC (RBC) [Mass/Vol]33.1 g/fLXxaasx91.9-35.2The [facility] Comment on above:Performed By: #### CBC ####[facility] Paqkgesbaf247[address] [place], [place] [address]Dr.Grace BestMCV (RBC) [Entitic vol]89.0 fL Zynlto09.0-99.0The [facility] CenterComment on above:Performed By: #### CBC ####[facility] Wdtwjojnjj6058[address] [place], [place] [address]Dr. Grace NasirMONO #0.6 103/ulNormal0.3-0.8The [facility] CenterComment on above: Performed By: #### CBC ####[facility] Ffqgignqhd350[address] [place], [place] [address]Dr.Garce BestMonocytes/100 WBC (Bld)7.7 %Normal 1.7-12.0The [facility] CenterComment on above:Performed By: #### CBC ####[facility] Hcqhxkybhf4448[address] [place], [place] [address]Dr. Grace BestNEUT #5.4 103/ulNormal1.4-6.5The [facility] CenterComment on above: Performed By: #### CBC ####[facility] Qwyuoieodk1099[address] [place], [place] [address]Dr.Grace ChangNeutrophils/100 WBC (Bld)73.5 %Normal 43.0-75.0The [facility] CenterComment on above:Performed By: #### CBC ####[facility] Izemwulxxt468[address] [place], [place] [address]Dr. Grace BestPlatelet mean volume (Bld) [Entitic vol]8.9 fLCritically low9.5-13.5 The [facility] HospitalComment on above:Performed By: #### CBC ####[facility] Nntxcuizov53[address] [place] [address]Dr.Grace HkougOKS039 103/ulCritically jkzd189-246Eny [facility] CenterComment on above:Performed By: #### CBC ####[facility] Pvqnvjkfyl8193 [place] [address]Dr.Grace ChangRBC3.53 106/ulCritically low4.20-5.40[facility] Comment on above:Performed By: #### CBC ####[facility] Gfsusdsjwz0280 [place] [address]Dr.Grace ChangWBC7.4 103/ulNormal4.0-11.0The [facility] CenterComment on above:Performed By: #### CBC ####[facility] Udhjznpclg423[address] [place], [place] [address]Dr.Grace ChangCT ABD/PELV W CONon 22-97-2059HP ABD/PELV W CONNormalThe [facility] CenterPROF 14(COMP METB)on 44-39-2582Brlxoxa [Mass/Vol]3.1 g/dLCritically low3.4-5.0The [facility] Comment on above:Performed By: #### CMP ####[facility] Tqfksxzqgz0644[address] [place], [place] [address]Dr.Grace ChangAlbumin/Globulin [Mass ratio] 0.8 {ratio}NormalThe [facility] CenterComment on above:Performed By: #### CMP ####[facility] Ahanmuwhzq13[address] [place] [address]Dr. Roxannelan ChangALP [Catalytic activity/Vol]95 U/ABrtwxr05-996Bgw [facility] Comment on above:Performed By: #### CMP ####[facility] Gyoyzkyynq8896[address] [place], [place] [address]Dr.Yilan ChangALT [Catalytic activity/Vol]12 U/LCritically yxq40-95Lob [facility] CenterComment on above:Performed By: #### CMP ####[facility] Cbxommnyru1915[address] [place], [place] [address]Dr. Yilan ChangAnion gap [Moles/Vol]8.8 mmol/LNormalThe [facility] CenterComment on above:Performed By: #### CMP ####[facility] Rzfpmefuih529[address] [place], [place] [address]Dr.Yilan ChangAST [Catalytic activity/Vol]7 U/L Critically uzr23-06Jyu [facility] CenterComment on above:Performed By: #### CMP ####[facility] Ltxkhwxytt0098[address] [place], [place] [address]Dr. Yilan ChangBilirubin [Mass/Vol]0.2 mg/dLNormal0.2-1.0The [facility] Comment on above:Performed By: #### CMP ####[facility] Wcgpgwaqrl170[address] [place], [place] [address]Dr.Yilan ChangCalcium [Mass/Vol]8.5 mg/dL Normal8.5-10.1The [facility] CenterComment on above:Performed By: #### CMP ####[facility] Etaoilbqig1212[address] [place], [place] [address]Dr. Yilan ChangChloride [Moles/Vol]96 mmol/LCritically zuf13-074Ikc [facility] CenterComment on above:Performed By: #### CMP ####[facility] Enluhyxhzu2577[address] [place], [place] [address]Dr.Yilan ChangCO2 [Moles/Vol] 24.8 mmol/DCyuryk99.0-32.0The [facility] CenterComment on above:Performed By: #### CMP ####[facility] Ewecaboqdj8867[address] [place], [place] [address]Dr.Yilan ChangCreatinine [Mass/Vol]0.63 mg/dLNormal0.55-1.02The [facility] CenterComment on above:Performed By: #### CMP ####[facility] Wqqhbxfyea5788[address] [place], [place] [address]Dr.Yilan ChangEGFR-AF EGYPTIAN>60Normal>=60The [facility] CenterComment on above:Performed By: #### CMP ####[facility] Jfsyzvaxdt6050[address] [place], [place] [address]Dr. Yilan ChangEGFR-NON AF EGYPTIAN>60Normal>=60The [facility] CenterComment on above:Performed By: #### CMP ####[facility] Xlshycbhre7344[address] [place], [place] [address]Dr.Grace ChangGlobulin (S) [Mass/Vol]3.7 g/dLNormalThe [facility] CenterComment on above:Performed By: #### CMP ####[facility] Rgrndulymz7549[address] [place], [place] [address]Dr.Yilan ChangGlucose [Mass/Vol]201 mg/dLCritically ralr40-337Wgv [facility] CenterComment on above: Performed By: #### CMP ####[facility] Fspzkigphh774[address] [place], [place] [address]Dr.Roxannelan ChangPotassium [Moles/Vol]3.6 mmol/LNormal 3.5-5.1The [facility] CenterComment on above:Performed By: #### CMP ####[facility] Bkbeutncpr344[address] [place], [place] [address]Dr.Grace Best Protein [Mass/Vol]6.8 g/dLNormal6.4-8.2The [facility] CenterComment on above: Performed By: #### CMP ####[facility] Txjjtwvcrk7377[address] [place], [place] [address]Dr.Yilan ChangSodium [Moles/Vol]126 mmol/LCritically yel569-360Svr [facility] CenterComment on above:Performed By: #### CMP ####[facility] Nyrbzjuggs8228[address] [place], [place] [address]Dr. Yilan ChangUrea nitrogen [Mass/Vol]19.0 mg/dLCritically high7.0-18.0The [facility] CenterComment on above:Performed By: #### CMP ####[facility] Hpszhvpzer8349[address] [place], [place] [address]Dr.Yilan ChangUrea nitrogen/Creatinine [Mass ratio]30.2 mg/mgNormalThe [facility] CenterComment on above:Performed By: #### CMP ####[facility] Mngxuirruy5220[address] [place], [place] [address]Dr.Grace BestPROTIMEon 96-90-5945DZL Coag (PPP) [Relative time]0.96 {INR}NormalMain Campus Medical CenterComment on above:Performed By: #### PTT, PT ####[facility] Ypvvwburlu9574[address] [place], [place] [address]Dr Grace BestINR GUIDELINESSEE [facility] Comment on above:Result Comment: DESIRED INR: 2.0 - 3.0 CONDITIONS NOT LISTED BELOW 2.5 - 3.5 FOR PROSTHETIC HEART VALVE REPLACEMENT 2.5 - 3.5 RECURRENT THROMBOSISPerformed By: #### PTT, PT ####[facility] Ibcivcjyla8650[address] [place], [place] [address]Dr Roxannega BestPT Coag (PPP) [Time]10.4 sNormal 9.0-11.6The [facility] CenterComment on above:Performed By: #### PTT, PT ####[facility] Lgkydqvyee037[address] [place], [place] [address]Dr. Roxannega BestPTTon 17-11-8949rWWS Coag (Bld) [Time]29.7 wRqyroh92.3-36.2[facility] CenterComment on above:Performed By: #### PTT, PT ####[facility] Qfljypaden4706[address] [place], [place] [address]Dr. Roxannega NasirCBC AUTO DIFFon 20-12-8762MOUB #0.1 103/ulNormal0.0-0.1The [facility] CenterComment on above:Performed By: #### CBC ####[facility] Mmrbrfznyx2101[address] [place], [place] [address]Dr.Roxannega NasirBasophils/100 WBC (Bld)0.7 %Normal 0.2-2.0The [facility] CenterComment on above:Performed By: #### CBC ####[facility] Pyoamlsomc8205[address] [place], [place] [address]Dr.Grace ChangEO # 0.1 103/ulNormal0.0-0.7The [facility] CenterComment on above:Performed By: #### CBC ####[facility] Smchtpyfgn24[address] [place] [address]Dr. Yiga ChangEosinophils/100 WBC (Bld)1.3 %Normal0.9-7.0The [facility] Comment on above:Performed By: #### CBC ####[facility] Qbnykhgrwf26[address] [place], [place] [address]Dr.Yilan ChangErythrocyte distribution width (RBC) [Ratio]17.5 %Critically high11.0-15.0The [facility] CenterComment on above:Performed By: #### CBC ####[facility] Hbsgvbwkdf0557[address] [place], [place] [address]Dr.Yilan ChangHematocrit (Bld) [Volume fraction]32.7 % Critically low36.0-48.0The [facility] CenterComment on above:Performed By: #### CBC ####[facility] Tvanpcisit27[address] [place], [place] [address]Dr. Grace ChangHemoglobin (Bld) [Mass/Vol]10.3 g/dLCritically low12.0-16.0The [facility] CenterComment on above:Performed By: #### CBC ####[facility] Wjfxoxciwk1416[address] [place], [place] [address]Dr.Yilan ChangIG #0.03 10e3/ulNormal0.00-0.03The [facility] CenterComment on above:Performed By: #### CBC ####[facility] Lqrhsaykzx8835[address] [place], [place] [address]Dr. Yilan ChangIG %0.4 %Normal0.0-0.5The [facility] CenterComment on above:Performed By: #### CBC ####[facility] Gealmmuzff1436[address] [place], [place] [address]Dr.Yilan ChangLYMPH #1.2 103/ulNormal1.2-3.8The [facility] Comment on above:Performed By: #### CBC ####[facility] Tgeqlncjdy6778[address] [place], [place] [address]Dr.Yilan ChangLymphocytes/100 WBC (Bld)15.8 %Critically low20.5-60.0The [facility] CenterComment on above:Performed By: #### CBC ####[facility] Tavqocexhz4[address] [place] [address]Dr.Grace BestMANUAL DIFF REQNONormalThe [facility] CenterComment on above: Performed By: #### CBC ####[facility] Prwhjtiobk9610[address] [place], [place] [address]Dr.Grace BestH (RBC) [Entitic mass]30.0 pgNormal 26.7-34.0The [facility] HospitalComment on above:Performed By: #### CBC ####[facility] Btvynspyao5398[address] [place], [place] [address]Dr. Grace BestHC (RBC) [Mass/Vol]31.5 g/xHVscwrx23.9-35.2The [facility] Comment on above:Performed By: #### CBC ####[facility] Dykmhlzino7368[address] [place], [place] [address]Dr.Grace BestV (RBC) [Entitic vol]95.3 fL Drwtng30.0-99.0The [facility] CenterComment on above:Performed By: #### CBC ####[facility] Cozadkckiq443[address] [place], [place] [address]Dr. Grace BestMONO #0.6 103/ulNormal0.3-0.8The [facility] CenterComment on above: Performed By: #### CBC ####[facility] Dykdgdtnln4444[address] [place], [place] [address]Dr.Grace BestMonocytes/100 WBC (Bld)7.5 %Normal 1.7-12.0The [facility] CenterComment on above:Performed By: #### CBC ####[facility] Qrqdrfclfb96[address] [place], [place] [address]DrGiancarlo BestNEUT #5.6 103/ulNormal1.4-6.5The [facility] CenterComment on above: Performed By: #### CBC ####[facility] Btpvelmzfb7848[address] [place], [place] [address]Dr.Grace BestNeutrophils/100 WBC (Bld)74.3 %Normal 43.0-75.0The [facility] CenterComment on above:Performed By: #### CBC ####[facility] Kbfcmmojog2629[address] [place], [place] [address]Dr. Grace BestPlatelet mean volume (Bld) [Entitic vol]8.2 fLCritically low9.5-13.5 The [facility] CenterComment on above:Performed By: #### CBC ####[facility] Nmijyyhpgn8374[address] [place], [place] [address]Dr.Grace BestPLT647 103/ulCritically qpey824-600Zqz [facility] CenterComment on above:Performed By: #### CBC ####[facility] Tgwkdusacg523[address] [place], [place] [address]Dr.Grace BestRBC3.43 106/ulCritically low4.20-5.40The [facility] Comment on above:Performed By: #### CBC ####[facility] Vtzoynslar0314[address] [place], [place] [address]Dr.Grace BestWBC7.6 103/ulNormal4.0-11.0The [facility] CenterComment on above:Performed By: #### CBC ####[facility] Xorkhcecbk3116[address] [place], [place] [address]Dr.Grace BestCRPon 57-70-6445VLB4.6 mg/dLCritically high<=1.0The [facility] CenterComment on above: Performed By: #### BMP, CRP ####[facility] Mflyolkkvs959[address] [place], [place] [address]Dr. Grace ChangCT CSPINE WO CONon 62-21-6862XQ CSPINE WO CONNormalMain Campus Medical CenterCT LSPINE WO CONon 89-01-5507VA LSPINE WO CON NormalThe [facility] CenterCT TSPINE WO CONon 78-50-9250NC TSPINE WO CONNormal The [facility] CenterPROF CHEM 8 (BAS METB)on 02-57-1391Jnghp gap [Moles/Vol] 10.9 mmol/LNormalThe [facility] CenterComment on above:Performed By: #### BMP, CRP ####[facility] [address]pxvpbhq[address] [place] [address]Dr. Yilan ChangCalcium [Mass/Vol]9.2 mg/dLNormal8.5-10.1The [facility] Comment on above:Performed By: #### BMP, CRP ####[facility] Hywwdbudgn[address] [place] [address]Dr. Yilan ChangChloride [Moles/Vol]100 mmol/NVnwmzm69-765Jwk [facility] CenterComment on above:Performed By: #### BMP, CRP ####[facility] Iarzgnbzib[address] [place], [place] [address]Dr. Yilan ChangCO2 [Moles/Vol]27.3 mmol/LNormal 21.0-32.0The [facility] CenterComment on above:Performed By: #### BMP, CRP ####[facility] Zolgdcescm1264[address] [place], [place] [address]Dr. Yilan ChangCreatinine [Mass/Vol]0.68 mg/dLNormal0.55-1.02The [facility] Comment on above:Performed By: #### BMP, CRP ####[facility] Zzxszmkpzn[address] [place], [place] [address]Dr. Yilan ChangEGFR-AF EGYPTIAN>60Normal>=60The [facility] CenterComment on above:Performed By: #### BMP, CRP ####[facility] Regmtmlzsl[address] [place], [place] [address]Dr. Yilan ChangEGFR-NON AF EGYPTIAN>60Normal>=60The [facility] Comment on above:Performed By: #### BMP, CRP ####[facility] Igkiqtpjnw[address] [place], [place] [address]Dr. Yilan ChangGlucose [Mass/Vol]85 mg/rQOjcmgo77-179Oex [facility] CenterComment on above:Performed By: #### BMP, CRP ####[facility] Qymkzeqmfn[address] [place], [place] [address]Dr. Yilan ChangPotassium [Moles/Vol]4.2 mmol/LNormal3.5-5.1The [facility] CenterComment on above:Performed By: #### BMP, CRP ####[facility] [address]jozkb[address] [place] [id number]. Yilan Best Sodium [Moles/Vol]134 mmol/LCritically grn514-603Kmm [facility] CenterComment on above:Performed By: #### BMP, CRP ####[facility] Qkewpjlfwq0485 [place] [id number]. Yilan ChangUrea nitrogen [Mass/Vol]17.0 mg/dL Normal7.0-18.0The [facility] CenterComment on above:Performed By: #### BMP, CRP ####[facility] Odpjxvxold6[address] [place] [id number]. Yilan ChangUrea nitrogen/Creatinine [Mass ratio]25.0 mg/mgNormalThe [facility] CenterComment on above:Performed By: #### BMP, CRP ####[facility] Utnquacecj6[address] [place] [id number]. Yilan ChangSED RATE WESTERGRENon 66-55-9264QJG RATE78 mm/hrCritically high<=30[facility] Comment on above:Performed By: #### SEDR ####[facility] [address] [place] [id number]. Yilan ChangAutomated erythrocytes count in urine sediment (number/area)Ordered By: Nirav Huerta on 13-14-1632GFI Auto (Urine sed) [#/Area]3-4 [HPF]0-4FPremier Health Miami [facility] Hospital NorthAutomated leukocytes count in urine sediment (number/area)Ordered By: Nirav Huerta on 11-21-3517CDP Auto (Urine sed) [#/Area]10-19 [HPF]0-4FPremier Health Miami Valley Hospital NorthBasophils Auto (Bld) [#/Vol]Ordered By: Nirav Huerta on 01-08-2022 Basophils (Bld) [#/Vol]0.1 10*3/uL0.0-0.2FPremier Health Miami [facility] North Basophils/100 WBC Auto (Bld)Ordered By: Nirav Huerta on 33-24-5129Eubvuedvn/100 WBC (Bld)0.8 %.[facility] CenterBeta-hydroxybutyric acid measurementOrdered By: Jayashree Watts on 70-07-1349Bssq hydroxybutyrate [Mass/Vol]8.19 mmol/L0.05-0.27[facility] CenterBilirubin Test strip Ql (U)Ordered By: Nirav Huerta on 84-91-4289Svhtmbyqg Ql (U)Negative NegativeUniversity Hospitals Tripoint Medical CenterBlood hemoglobin measurement (mass/volume)Ordered By: Nirav Huerta on 64-04-7678Fdcegzcwhn (Bld) [Mass/Vol] 9.0 g/dL11.8-15.4FPremier Health Miami Valley Hospital NorthBlood leukocytes automated count (number/volume)Ordered By: Nirav Huerta on 12-04-6564RAR (Bld) [#/Vol] 13.6 10*3/uL4.5-11.0[facility] CenterBody fluid albumin measurement (mass/volume)Ordered By: Nirav Huerta on 00-16-7603Hslluxh (Body fld) [Mass/Vol]2.9 g/dL3.2-5.5FPremier Health Miami Valley Hospital NorthCOVID-19 Positive/NegativeOrdered By: Raul Montez on 90-53-2964UYJI-CoV-2 (COVID-19) N gene LOUISE+probe Ql (Resp)NegativeNegativeUniversity Hospitals Tripoint Medical CenterComment on above:Testing for SARS-CoV-2 by RT-PCR This test was developed and its performance characteristics determined by [employer] ([employer]) and validated at the [facility]. This test has not been FDA cleared [...] terminated or revoked sooner.COVID-19 SOFIAOrdered By: Nirav Huerta on 40-96-6585TGCL-CoV+SARS-CoV-2 (COVID-19) Ag IA.rapid Ql (Resp)NegativeNegative [facility] CenterComment on above:This is a duplicate Nina SARS Antigen (NAPOLEON) result to be used for statistical tracking purpose only.Color Auto (U)Ordered By: Nirav Huerta on 27-82-1454Svsnq (U)YellowYellowUniversity Hospitals Tripoint Medical CenterCreatinine and Glomerular filtration rate.predicted panel (S/P/Bld)Ordered By: Jayashree Watts on 26-89-9051Yezehspplu [Mass/Vol]0.90 mg/dL0.44-1.03[facility] CenterComment on above:Delta: 1.41 on 01/08/22-1631Eosinophils Auto (Bld) [#/Vol]Ordered By: Nirav Huerta on 27-34-3817Wmuytmztozs (Bld) [#/Vol]0.0 10*3/uL0.0-0.45[facility] CenterEosinophils/100 WBC Auto (Bld)Ordered By: Nirav Huerta on 01-08-2022 Eosinophils/100 WBC (Bld)0.2 %.[facility] CenterErythrocyte distribution width Auto (RBC) [Ratio]Ordered By: Nirav Huerta on 01-08-2022 Erythrocyte distribution width (RBC) [Ratio]17.4 %11.9-15.3FPremier Health Miami Valley Hospital NorthEstimated glomerular filtration rate (GFR) non- Ordered By: Jayashree Watts on 71-34-0587HWP/1.73 sq M.predicted among non- blacks MDRD (S/P/Bld) [Vol rate/Area]> 60 mL/MinUniversity Hospitals Tripoint Medical CenterGlobulin Calc (S) [Mass/Vol]Ordered By: Nirav Huerta on 01-08-2022 Globulin (S) [Mass/Vol]3.6 g/dLUniversity Hospitals Tripoint Medical CenterGlucose Glucometer (BldC) [Mass/Vol]Ordered By: Jayashree Watts on 60-97-6358Rkmvvtg [Mass/Vol]224 mg/dLUniversity Hospitals Tripoint Medical CenterComment on above:Random Glucose Reference Range is dependent on time and content of last meal. Glucose of more than 200 mg/dL in a nonstressed, ambulatory subject supports the diagnosis of Diabetes Mellitus.HCG ( test) IA.rapid Ql (U)Ordered By: Jayashree Watts on 58-67-1062USH ( test) Ql (U)NegativeUniversity Hospitals Tripoint Medical CenterHematocrit Auto (Bld) [Volume fraction]Ordered By: Nirav Huerta on 06-82-2803Ybdwxkdhvm (Bld) [Volume fraction]28.3 %34.0-46.4FPremier Health Miami Valley Hospital NorthKetones Auto test strip (U) [Mass/Vol]Ordered By: Nirav Huerta on 54-91-1561Lqvsenq (U) [Mass/Vol]TraceNegativeUniversity Hospitals Tripoint Medical CenterLaboratory - Chemistry and Chemistry - challengeOrdered By: Jayashree Watts on 17-15-1864Rzynzxgrh [Mass/Vol]2.1 mg/dL1.6-2.6FPremier Health Miami Valley Hospital NorthCO2 [Moles/Vol]8.4 mmol/L24.0-29.0[facility] CenterHCO3 (Bld) [Moles/Vol]7.6 mmol/L23.0-29.0[facility] Laboratory - Chemistry and Chemistry - challengeOrdered By: Nirav Huerta on 40-65-9136Kolxcr [Catalytic activity/Vol]20.0 U/P89-56YebiwwnirUniversity Hospitals Tripoint Medical CenterLaboratory - Hematology and Cell countsOrdered By: Nirav Huerta on 64-59-6523Qitselbzk RBC/100 WBC (Bld) [Ratio]0.0 %0-0.5FPremier Health Miami Valley Hospital NorthLaboratory - UrinalysisOrdered By: Nirav Huerta on 01-08-2022 Hyaline casts LM Ql (Urine sed)0-8 [LPF]0-8[facility] Lymphocytes Auto (Bld) [#/Vol]Ordered By: Nirav Huerta on 16-21-4542Mubsldppnan (Bld) [#/Vol]1.2 10*3/uL1.00-4.8[facility] Lymphocytes/100 WBC Auto (Bld)Ordered By: Nirav Huerta on 01-08-2022 Lymphocytes/100 WBC (Bld)8.6 %.[facility] BeachwoodH Auto (RBC) [Entitic mass]Ordered By: Nirav Huerta on 13-96-6856EOK (RBC) [Entitic mass] 28.2 pg24.7-34.3FPremier Health Miami Valley Hospital NorthMCHC Auto (RBC) [Mass/Vol] Ordered By: Nirav Huerta on 32-48-4744FBOR (RBC) [Mass/Vol]31.8 g/dL32.0-35.0 [facility] CenterMCV Auto (RBC) [Entitic vol]Ordered By: Nirav Huerta on 51-55-5988ZFC (RBC) [Entitic vol]88.5 dA70-483VecvuxbfbUniversity Hospitals Tripoint Medical CenterMonocytes Auto (Bld) [#/Vol]Ordered By: Nirav Huerta on 44-99-5670Zwvvgfplw (Bld) [#/Vol]1.0 10*3/uL0.0-0.8[facility] CenterMonocytes/100 WBC Auto (Bld)Ordered By: Nirav Huerta on 01-08-2022 Monocytes/100 WBC (Bld)7.2 %.[facility] CenterNeutrophils Auto (Bld) [#/Vol]Ordered By: Nirav Huerta on 71-19-9895Ffbolqviami (Bld) [#/Vol] 11.3 10*3/uL1.8-7.7FPremier Health Miami Valley Hospital NorthNeutrophils/100 WBC Auto (Bld)Ordered By: Nirav Huerta on 42-36-0760Wwieijngukm/100 WBC (Bld)83.2 %. [facility] CenterNitrite Test strip Ql (U)Ordered By: Nirav Huerta on 36-92-6161Tcbfect Ql (U)NegativeNegativeUniversity Hospitals Tripoint Medical CenterNo Panel InformationOrdered By: Jayashree Watts on 14-68-1290Wiczjqsfp GFR ()> 60 mL/MinUniversity Hospitals Tripoint Medical CenterComment on above: GFR estimated reference range: According to KDOQI guidelines, <60 ml/min/1.73m2 is sufficient todiagnose a patient with chronic kidney disease.Pharmacy Creatinine Clearance (Chem62.10[facility] CenterBlood Gas Critical ValueSee commentUniversity Hospitals Tripoint Medical CenterComment on above: Critical Value called on: 01/08/2022 at 15:42Blood Gas Sample SiteVenous [facility] CenterFiO2Na %[facility] Medical CenterVenous Blood Base Excess-20.2 mmol/L-3.0-3.0[facility] CenterVenous Blood Oxygen Content3.1 mmol/L6.6-9.7FPremier Health Miami Valley Hospital NorthVenous Blood Oxygen Xrbazjtbim42.7 %73.0-76.0[facility] Medical CenterVenous Blood Partial Pressure CO224.5 mm[Hg]38.0-50.0[facility] Venous Blood Partial Pressure O234.6 mm[Hg]35.0-45.0[facility] Medical CenterVenous Blood pH7.117.32-7.43[facility] CenterNo Panel InformationOrdered By: Nirav Huerta on 20-31-0556Xehkbgj Glucose #2 Comment Cleaned meterUniversity Hospitals Tripoint Medical CenterBedside Glucose CommentSee comment [facility] CenterComment on above:Glu2: WILL NOTIFY DR/RNSARS Antigen (LFIA)[facility] CenterPhosphate [Mass/volume] in Serum or PlasmaOrdered By: Nirav Huerta on 36-64-3449Gaoekzuvf [Mass/Vol]2.7 mg/dL 2.5-4.6FPremier Health Miami Valley Hospital NorthPlatelet mean volume Auto (Bld) [Entitic vol]Ordered By: Nirav Huerta on 68-33-4086Paqtqixq mean volume (Bld) [Entitic vol]7.0 fL6.3-10.7FPremier Health Miami Valley Hospital NorthPlatelets Auto (Bld) [#/Vol] Ordered By: Nirav Huerta on 21-19-7934Pdklaeesg (Bld) [#/Vol]751 10*3/sM587-638 [facility] CenterProtein Auto test strip (U) [Mass/Vol]Ordered By: Nirav Huerta on 41-89-9765Gpteqwk (U) [Mass/Vol]30 mg/dLNegativeUniversity Hospitals Tripoint Medical CenterProtein [Mass/volume] in Serum or PlasmaOrdered By: Nirav Huerta on 90-49-9028Doenlii [Mass/Vol]6.5 g/dL6.1-7.9[facility] CenterRBC Auto (Bld) [#/Vol]Ordered By: Nirav Huerta on 94-76-9359AVX (Bld) [#/Vol]3.19 10*6/uL3.60-5.00Ad[facility] County Hospitalerum or plasma alanine aminotransferase measurement without P-5'-P (enzymatic activi Ordered By: Nirav Huerta on 60-02-0848DBX No additional P-5'-P [Catalytic activity/Vol]19 U/K90-05LmzoaohbaAdams County Hospitalerum or plasma albumin/globulin mass ratioOrdered By: Nirav Huerta on 01-08-2022 Albumin/Globulin [Mass ratio]0.8 {ratio}[facility] Hospitalerum or plasma alkaline phosphatase measurement (enzymatic activity/volume)Ordered By: Nirav Huerta on 59-29-7933WGN [Catalytic activity/Vol]92 U/Q39-97UyxpptkbbAdams County Hospitalerum or plasma anion gap determinationOrdered By: Jayashree Watts on 86-98-7065Lbmwv gap [Moles/Vol]12.3 mmol/L6.0-15.0[facility] Hospitalerum or plasma aspartate aminotransferase measurement (enzymatic activity/volume)Ordered By: Nirav Huerta on 59-62-5333UVQ [Catalytic activity/Vol]17 U/Y21-34VkfrhnjjdAdams County Hospitalerum or plasma calcium measurement (mass/volume)Ordered By: Jayashree Watts on 01-08-2022 Calcium [Mass/Vol]8.7 mg/dL8.2-10.2FUniversity Hospitals Geauga Medical Centererum or plasma chloride measurement (moles/volume)Ordered By: Jayashree Watts on 74-63-4132Kxgwueac [Moles/Vol]113 mmol/P20-463RvahjyfowUniversity Hospitals Tripoint Medical Center Serum or plasma glucose measurement (mass/volume)Ordered By: Jayashree Watts on 72-77-8007Znhqzli [Mass/Vol]267 mg/iE66-085RlbvxnxwgUniversity Hospitals Tripoint Medical Center Comment on above:Delta: 823 on 01/08/22 ADA recommended reference range Random Glucose Reference Range is dependent on time and content of last meal. Glucose of more than 200 mg/dL in a nonstressed, ambulatory subject supports the diagnosis of Diabetes Mellitus.Serum or plasma potassium measurement (moles/volume)Ordered By: Jayashree Watts on 27-21-1008Antuqofua [Moles/Vol]4.1 mmol/L3.5-5.1FUniversity Hospitals Geauga Medical Centererum or plasma sodium measurement (moles/volume)Ordered By: Jayashree Watts on 24-26-0151Zvbcio [Moles/Vol]140 mmol/G189-737FozhosmqjUniversity Hospitals Tripoint Medical CenterComment on above:Delta: 132 on 01/08/22erum or plasma total bilirubin measurement (mass/volume)Ordered By: Nirav Huerta on 34-60-3028Admlncusi [Mass/Vol]0.6 mg/dL0.3-1.2FUniversity Hospitals Geauga Medical Centererum or plasma total carbon dioxide measurement (moles/volume)Ordered By: Jayashree Watts on 47-43-5342MB6 [Moles/Vol]18.8 mmol/L22.0-30.0[facility] Hospitalerum or plasma urea nitrogen measurement (mass/volume)Ordered By: Jayashree Watts on 69-83-7488Livo nitrogen [Mass/Vol]18 mg/dL9-23Ad[facility] County Hospitalpecific gravity Auto test strip (U) [Rel density]Ordered By: Nirav Huerta on 75-50-5223Qzxusufi gravity (U) [Rel density]1.0111.001-1.030[facility] Squamous epithelial cells detection in urine sediment by light microscopyOrdered By: Nirav Huerta on 16-41-7833Whbsgmvptr cells.squamous LM Ql (Urine sed)0-1 [HPF]0-2FPremier Health Miami Valley Hospital NorthUrine bacteria detection by automated methodOrdered By: Nirav Huerta on 33-97-7001Ulraewvx Auto Ql (U)None seenNone SeenUniversity Hospitals Tripoint Medical CenterUrine clarity by refractometry automated Ordered By: Nirav Huerta on 06-35-2784Mzuvnrc Refractometry automated (U)Turbid ClearUniversity Hospitals Tripoint Medical CenterUrine glucose measurement by automated test strip (mass/volume)Ordered By: Nirav Huerta on 44-96-8518Ztyawsn Auto test strip (U) [Mass/Vol]Normal mg/dLNormAdams County HospitalUrine hemoglobin detection by automated test stripOrdered By: Nirav Huerta on 17-42-0350Pkbqiornzp Auto test strip Ql (U)TraceNegativeUniversity Hospitals Tripoint Medical CenterUrine lactic acid measurementOrdered By: Nirav Huerta on 84-44-6886Iflqqbi (U) [Moles/Vol]0.9 mmol/L0.5-2.2FPremier Health Miami Valley Hospital NorthUrine leukocyte esterase detection by automated test stripOrdered By: Nirav Huerta on 30-09-3927Mzhvcigkb esterase Auto test strip Ql (U)4+Negative [facility] CenterUrobilinogen Auto test strip (U) [Mass/Vol] Ordered By: Nirav Huerta on 49-40-3595Rumnwujlgoos (U) [Mass/Vol]Normal mg/dL NormalUniversity Hospitals Tripoint Medical CenterpH Auto test strip (U)Ordered By: Nirav Huerta on 99-81-9119hK (U)7.5 [pH]5.0-9.0[facility] ACETONE SERUMon 23-23-0332BXUJYNXDKFRPZactxkpzCODGNXUPWoz [facility] Comment on above:Performed By: #### ACETON ####[facility] [address] [place], [place] [address]DrGiancarlo Camaerna GASES BTYon 01-07-2022 02 [facility] [place] OK[facility] CITYOOCleveland Clinic FoundationComment on above:Performed By: #### ABG ####[facility] Cqhuudyoph[address] [place], [place] [address]DrGiancarlo LeeENS TESTPositiveTrinity Health SystemComment on above: Performed By: #### ABG ####[facility] Uauyjprtlp[address] [place], [place] [address]Dr.Yilan ChangBase excess Calc (Bld) [Moles/Vol]- 8.1000 mmol/LCritically low-2.0-2.0The [facility] CenterComment on above: Performed By: #### ABG ####[facility] [address] [place] [address]Dr.Grace BestBIPAP Kindred Hospital DaytonComment on above:Performed By: #### ABG ####[facility] Vrxemlwsue[address] [place], [place] [address]Dr.Grace BestCPAPSelect Medical Specialty Hospital - Columbus South HospitalComment on above:Performed By: #### ABG ####[facility] [address]wrrpvnhd39[address] [place], [place] [address]Dr.Grace BestOnjxfOOT7XadgvtCrdTrinity Health SystemComment on above:Performed By: #### ABG ####[facility] Eogfitbbdk[address] [place], [place] [address]Dr.Grace BestHCO3 (Bld) [Moles/Vol]18.5 mmol/LCritically low22.0-26.0The [facility] CenterComment on above:Performed By: #### ABG ####[facility] [address]glqfibdc[address] [place], [place] [address]Dr.Grace BestLPMNormalThe [facility] CenterComment on above:Performed By: #### ABG ####[facility] [address]ovmaowjw[address] [place], [place] [address]Dr.Grace BestMINUTE VOLUMETrinity Health System Comment on above:Performed By: #### ABG ####[facility] Kkceyrckmt[address] [place], [place] [address]Dr.Grace ChangOxygen (Bld) [Partial pressure]110.0 mm[Hg]Critically high80.0-100.0The [facility] CenterComment on above:Performed By: #### ABG ####[facility] Gzwckxxhfl6[address] [place], [place] [address]Dr.Grace BestOxygen saturation in Blood97.0 %Normal 95.0-100.0The [facility] CenterComment on above:Performed By: #### ABG ####[facility] [address] [place] [address]Dr. Grace BestPCO232.0 mmHgCritically low35.0-45.0[facility] CenterComment on above:Performed By: #### ABG ####[facility] [address]awitkjmt[address] [place] [address]Dr.Roxannehospital [facility] ChangPEEPSelect Medical Specialty Hospital - Columbus South HospitalComment on above:Performed By: #### ABG ####[facility] Fq[address]bbvqzx[address] [place] [address]Dr.Grace BestpH (Bld)7.347 [pH]Critically low 7.350-7.450The [facility] CenterComment on above:Performed By: #### ABG ####[facility] Tshzblhumv[address] [place], [place] [address]Dr. Roxannega BestPIPNormalMain Campus Medical CenterComment on above:Performed By: #### ABG ####[facility] Exxtbzcxvn[address] [place], [place] [address]Dr. Adena Pike Medical CenterComment on above:Performed By: #### ABG ####[facility] Zeekkbwguf[address] [place], [place] [address]Dr. Roxannega BestPUNCTURE [facility] HospitalComascension [facility] on above:Performed By: #### ABG ####[facility] Hbhwocxoan[address] [place], [place] [address]Dr.Roxannega BestRATENormalMain Campus Medical CenterComment on above:Performed By: #### ABG ####[facility] [address]ecvqvtvgk[address] [place], [place] [address]Dr.ga ChangVENT MODETrinity Health SystemComment on above: Performed By: #### ABG ####[facility] Ugiqehrrot[address] [place], [place] [address]Dr.[facility] for Rehabilitation HospitalComment on above:Performed By: #### ABG ####[facility] Czlveaqecb[address] [place], [place] [address]Dr.Grace LU 3-6on 90-76-1851FU [Catalytic activity/Vol]21 U/LCritically wxy62-210FzmMain Campus Medical CenterComment on above:Performed By: #### CMREP ####[facility] [address] [place] [address]DrGiancarlo Yoon.MB [Mass/Vol]1.01 ng/mLNormal<=3.60 The [facility] CenterComment on above:Performed By: #### CMREP ####[facility] [address]yyv[address] [place] [address]Dr. Grace Best HSTROP9.1 pg/mLNormal4.0-51.3The [facility] CenterComment on above:Result Comment: CUT-OFF POINTS HAVE BEEN ESTABLISHED BASED ON THE FOURTH UNIVERSAL DEFINITIONS OF MYOCARDIALINFARCTION. THE UPPER REFERENCE LIMIT (URL) OF TROPONIN, DEFINED THE 99TH PERCENTILE OFcTnI DISTRIBUTION IN A REFERENCE POPULATION, HAS BEEN CONFIRMED THE DECISION THRESHOLDFOR ME DIAGNOSIS. Performed By: #### CMREP ####[facility] C[address]vmeourj[address] [place], [place] [address]Dr. Grace Yoon [Catalytic activity/Vol]16 U/L Critically dme86-725KbzMain Campus Medical CenterComment on above:Performed By: #### CMREP ####[facility] Tnsakniqdb[address] [place], [place] [address]Dr. Grace Yoon.MB [Mass/Vol]0.87 ng/mLNormal<=3.60[facility] Comment on above:Performed By: #### CMREP ####[facility] Ptohlneklp[address] [place], [place] [address]Dr. Grace BestHSTROP8.7 pg/mLNormal4.0-51.3 [facility] on above:Result Comment: CUT-OFF POINTS HAVE BEEN ESTABLISHED BASED ON THE FOURTH UNIVERSAL DEFINITIONS OF MYOCARDIALINFARCTION. THE UPPER REFERENCE LIMIT (URL) OF TROPONIN, DEFINED THE 99TH PERCENTILE OFcT nI DISTRIBUTION IN A REFERENCE POPULATION, HAS BEEN CONFIRMED THE DECISION THRESHOLDFOR ME DIAGNOSIS.Performed By: #### CMREP ####[facility] Riafdoumsj[address] [place], [place] [address]Dr. Grace BestBONIDIAC ALY ADMITon 52-53-5751UZ [Catalytic activity/Vol]30 U/RJhtlqy99-921Inz [facility] CenterComment on above:Performed By: #### CMADM ####[facility] Ctrcbihjoj[address] [place] [address]Dr. Grace BestCK.MB [Mass/Vol]0.83 ng/mLNormal<=3.60The [facility] CenterComment on above:Performed By: #### CMADM ####[facility] Yhdkjcljaj[address] [place], [place] [address]Dr. Grace BestHSTROP8.2 pg/mLNormal4.0-51.3The [facility] Comment on above:Result Comment: CUT-OFF POINTS HAVE BEEN ESTABLISHED BASED ON THE FOURTH UNIVERSAL DEFINITIONS OF MYOCARDIALINFARCTION. THE UPPER REFERENCE LIMIT (URL) OF TROPONIN, DEFINED THE 99TH PERCENTILE OFcTnI DISTRIBUTION IN A REFERENCE POPULATION, HAS BEEN CONFIRMED THE DECISION THRESHOLDFOR ME DIAGNO SIS.Performed By: #### CMADM ####[facility] Ygtogpllmk[address] [place], [place] [address]Dr. Grace BestMYO19 ng/mLNormal9-82The [facility] CenterComment on above:Performed By: #### CMADM ####[facility] Asnchbsjuo0[address] [place], [place] [address]Dr. Roxannega BestCBC W MANUAL DIFFon 72-44-1822FDVNLPKF LYMPH #NormalThe [facility] CenterComment on above: Performed By: #### CBCMAN ####[facility] [address]zifebjzw[address] [place], [place] [address]Dr. Roxannega ChangATYPICAL LYMPH %NormalThe [facility] CenterComment on above:Performed By: #### CBCMAN ####[facility] Vjqvcrmaom[address] [place], [place] [address]Dr. Grace BestBAND #0.1 103/ulNormal0.0-0.3The [facility] CenterComment on above:Performed By: #### CBCMAN ####[facility] Lwywqizhbo[address] [place], [place] [address]Dr. Yilan ChangBAND %1 %Normal0-5The [facility] HospitalComment on above: Performed By: #### CBCMAN ####[facility] Aowridbkjq[address] [place], [place] [address]Dr. Yilan ChangBASOM #0.00 103/ulNormal0.00-0.10The [facility] HospitalComment on above:Performed By: #### CBCMAN ####[facility] [address]cexqne[address] [place] [address]Dr. Yilan ChangBASOM %0.0 %Critically low0.2-2.0The [facility] HospitalComment on above:Performed By: #### CBCMAN ####[facility] Pwinadjglw[address] [place], [place] [address]Dr. Yilan ChangBLAST #NormalThe [facility] HospitalComment on above:Performed By: #### CBCMAN ####[facility] Vawkyqsfpg[address] [place], [place] [address]Dr. Yilan ChangBLAST %NormalThe [facility] HospitalComment on above: Performed By: #### CBCMAN ####[facility] Aouiyoruwp[address] [place], [place] [address]Dr. Yilan ChangCORRECTED WBCNormal4.0-11.0The [facility] CenterComment on above:Performed By: #### CBCMAN ####[facility] Uumydevbms[address] [place], [place] [address]Dr. Yilan ChangEOS #0.00 103/ulNormal0.00-0.70The [facility] HospitalComment on above:Performed By: #### CBCMAN ####[facility] Ibauehjhkt6[address] [place], [place] [address]Dr. Yilan ChangEOS%0.0 %Critically low0.9-7.0The [facility] HospitalComment on above:Performed By: #### CBCMAN ####[facility] Yzlkwctuot[address] [place], [place] [address]Dr. Yilan WduzeWEP43.3 %Critically low36.0-48.0 The [facility] HospitalComment on above:Performed By: #### CBCMAN ####[facility] Ph[address]qfpemg[address] [place] [address]Dr. Grace BestHGB 10.2 g/dlCritically low12.0-16.0The [facility] CenterComment on above:Performed By: #### CBCARIAN ####[facility] [address]ssxbw[address] [place] [address]Dr. Grace BestLYMPHM #0.26 103/ulCritically low1.20-3.80The [facility] HospitalComment on above:Performed By: #### CBCARIAN ####[facility] Huoiytevog[address] [place], [place] [address]Dr. Grace BestLYMPHM%2.0 % Critically low20.5-60.0The [facility] CenterComment on above:Performed By: #### CBCARIAN ####[facility] Zbiyfqshnw[address] [place], [place] [address]Dr. Grace BestMCH28.9 ijMwudjs54.7-34.0The [facility] CenterComment on above:Performed By: #### CBCARIAN ####[facility] Guyjjbkuki[address] [place], [place] [address]Dr. Grace BestMCHC31.6 g/tnPxqsxo27.9-35.2The [facility] CenterComment on above:Performed By: #### CBCARIAN ####[facility] Djoyimwvsb[address] [place], [place] [address]Dr. Grace BestMCV 91.5 dXAyrugv84.0-99.0The [facility] CenterComment on above:Performed By: #### CBCARIAN ####[facility] X[address]ajhqfpc[address] [place], [place] [address]Dr. Roxannelan ChangMETAMYELOCYTE #NormalThe [facility] CenterComment on above: Performed By: #### CBCARIAN ####[facility] Yrureqjaba[address] [place], [place] [address]Dr. Yilan ChangMETAMYELOCYTE %NormalThe [facility] CenterComment on above:Performed By: #### CBCARIAN ####[facility] Oggfpgjdog7[address] [place], [place] [address]Dr. Roxannelan ChangMONOM#0.26 103/ulCritically low0.30-0.80The [facility] CenterComment on above:Performed By: #### CBCARIAN ####[facility] [address]scbww[address] [place] [address]Dr. Grace BestMONOM%2.0 %Normal1.7-12.0The [facility] CenterComment on above:Performed By: #### CBCARIAN ####[facility] R[address]zaswz69[address] [place] [address]Dr. Yiga ChangMPV9.3 fLCritically low9.5-13.5The [facility] CenterComment on above:Performed By: #### CBCARIAN ####[facility] Ftpskmjoag[address] [place], [place] [address]Dr. Grace Best MYELOCYTE #NormalThe [facility] CenterComment on above:Performed By: #### CBCARIAN ####[facility] [address]rcqhfsi[address] [place], [place] [address]Dr. Grace ChangMYELOCYTE %NormalThe [facility] CenterComment on above:Performed By: #### CBCARIAN ####[facility] [address]jynouoor[address] [place], [place] [address]Dr. Grace ChangNRBCNormalThe [facility] CenterComment on above:Performed By: #### ALL ####[facility] [address]cyjxvi[address] [place], [place] [address]Dr. Grace LhqyeJOX827 103/ulCritically dmbc219-241Vfv [facility] CenterComment on above:Result Comment: NOT PLT CLUMPING OBSERVEDPerformed By: #### CBCARIAN ####[facility] [address]qtye[address] [place], [place] [address]Dr. Grace ChangRBC3.53 106/ulCritically low4.20-5.40[facility] Comment on above:Performed By: #### CBCARIAN ####[facility] X[address]ovrbov[address] [place], [place] [address]Dr. Grace BestRDW16.8 %Critically high 11.0-15.0The [facility] CenterComment on above:Performed By: #### CBCARIAN ####[facility] [address]rajq[address] [place], [place] [address]Ws. Grace RahmanG #12.16 103/ulCritically high1.40-6.50The [facility] CenterComment on above:Performed By: #### DLARIAN ####[facility] [address]zx[address] [place], [place] [address]Hj. Grace RahmanG %95.0 %Critically high 43.0-75.0The [facility] CenterComment on above:Performed By: #### DLARIAN ####[facility] Rnphsfsbjb7507 [place], [place] [address]Lb. Grace BestWBC12.8 103/ulCritically high4.0-11.0The Uc Medical CenterComment on above:Performed By: #### DLARIAN ####[facility] Ezhxouewwg[address] [place], [place] [address]Zc. Grace BestCovid-19 PCR (CVDTBH)on 01-07-2022 SARS-CoV-2 (COVID-19) RNA LOUISE+probe Ql (Unsp spec)Not detectedNormalNOT DETECTED The [facility]c Medical CenterComment on above:Result Comment: When diagnostic testing is [...] for this test is supported by the Social Worker Assistant of Health and Human Service's declaration that [...] no longer be used).Performed By: #### CVDTBH ####[facility] [address] [place] [id number]. Grace ChangLACTATE/LACTIC ACIDon 03-16-5554Undcuge [Moles/Vol]5.0 mmol/L Critically high0.4-1.9The [facility]c Medical CenterComment on above:Performed By: #### LACT ####[facility] [address]lc[address] [place] [address]Dr. Grace NasirPOINT OF CARE GLUCOSEon 14-98-3218Psnmnci [Mass/Vol]302 mg/dLCritically dlvw00-654Cav [facility] CenterComment on above:Performed By: #### POCGLUC ####[facility] [address] [place], [place] [address]Dr. Grace ChangGlucose [Mass/Vol]311 mg/dLCritically xbxa48-350Pxp [facility] CenterComment on above:Performed By: #### POCGLUC ####[facility] Eacqe[address] [place], [place] [address]Dr. Grace Best Glucose [Mass/Vol]273 mg/dLCritically ijgy72-888Gng [facility] CenterComment on above:Performed By: #### POCGLUC ####[facility] Cxpcufhevp[address] [place], [place] [address]Dr. Grace ChangGlucose [Mass/Vol]404 mg/dLCritically namw27-714Gkh [facility] CenterComment on above:Performed By: #### POCGLUC ####[facility] [address]sw[address] [place], [place] [address]Dr. Grace NasirPOCGLUC>600Critically avki15-857Fos [facility] CenterComment on above:Result Comment: Lab Draw OrderedPerformed By: #### POCGLUC ####[facility] Vtvdeepjfx[address] [place], [place] [address]Dr. Graec BestPROF 14(COMP METB)on 30-49-1994Ryadcjr [Mass/Vol]2.8 g/dLCritically low3.4-5.0The [facility] CenterComascension [facility] on above:Performed By: #### CMP ####[facility] Juqnhsqpby[address] [place], [place] [address]Dr.Grace Best Albumin/Globulin [Mass ratio]0.6 {ratio}NormalThe [facility]c Medical CenterComment on above:Performed By: #### CMP ####[facility] [address] [place] [address]Dr.Yilan ChangALP [Catalytic activity/Vol]132 U/L Critically yyhu27-314Gii [facility] Medical CenterComment on above:Performed By: #### CMP ####[facility] [address] [place] [address]Dr. Yilan ChangALT [Catalytic activity/Vol]24 U/KRjmmkk63-98Eqp [facility] Comment on above:Performed By: #### CMP ####[facility] Swalmbcuhb[address] [place], [place] [address]Dr.Yilan ChangAnion gap [Moles/Vol]25.7 mmol/LNormalThe [facility] Medical CenterComment on above:Performed By: #### CMP ####[facility] Qlhdwcianc[address] [place], [place] [address]Dr. Yilan ChangAST [Catalytic activity/Vol]12 U/LCritically pda07-71Ttp [facility] Medical CenterComment on above:Performed By: #### CMP ####[facility] Momsexqboz[address] [place], [place] [address]Dr.Yilan ChangBilirubin [Mass/Vol]0.6 mg/dLNormal0.2-1.0The [facility] Medical CenterComment on above:Performed By: #### CMP ####[facility] [address]qbqoesdi[address] [place], [place] [address]Dr.Yilan ChangCalcium [Mass/Vol]9.1 mg/dLNormal8.5-10.1The [facility] Medical CenterComment on above:Performed By: #### CMP ####[facility] S[address]yirbvq[address] [place], [place] [address]Dr.Yilan ChangChloride [Moles/Vol]89 mmol/LCritically uwk54-659Mqm [facility] CenterComment on above: Performed By: #### CMP ####[facility] Fbvklzfonz[address] [place], [place] [address]Dr.Yilan ChangCO2 [Moles/Vol]14.2 mmol/LCritically low 21.0-32.0The [facility] Medical CenterComment on above:Performed By: #### CMP ####[facility] [address] [place] [id number]. Yilan ChangCreatinine [Mass/Vol]1.33 mg/dLCritically high0.55-1.02The [facility] Medical CenterComment on above:Performed By: #### CMP ####[facility] [address]rod[address] [place] [address]Dr.Yilan ChangEGFR-AF CQVGGFPR04 mL/min/1.50d4Uxqzhqxlva low>=60The [facility] Medical CenterComment on above: Performed By: #### CMP ####[facility] [address]rew[address] [place] [address]Dr.Yilan ChangEGFR-NON AF TDJMHESQ32 mL/min/1.73m2 Critically low>=60The [facility] Medical CenterComment on above:Performed By: #### CMP ####[facility] Baiapvrggo[address] [place], [place] [address]Dr. Yilan ChangGlobulin (S) [Mass/Vol]4.6 g/dLNormalThe [facility] Medical CenterComment on above:Performed By: #### CMP ####[facility] Rdqrldiooj[address] [place], [place] [address]Dr.Yilan ChangGlucose [Mass/Vol]826 mg/dLCritically geja07-525Jwg [facility] CenterComment on above:Performed By: #### CMP ####[facility] K[address]zhkrfxg[address] [place], [place] [address]Dr. Yilan ChangPotassium [Moles/Vol]4.9 mmol/LNormal3.5-5.1The [facility] Comment on above:Performed By: #### CMP ####[facility] Lq[address]swiwp[address] [place], [place] [address]Dr.Yilan ChangProtein [Mass/Vol]7.4 g/dL Normal6.4-8.2The [facility] Medical CenterComment on above:Performed By: #### CMP ####[facility] Hxtpcrpoej4[address] [place], [place] [address]Dr. Yilan ChangSodium [Moles/Vol]124 mmol/LCritically nux988-376Xbf [facility] CenterComment on above:Performed By: #### CMP ####[facility] Lrxguvnjed[address] [place], [place] [address]Dr.Grace ChangUrea nitrogen [Mass/Vol]28.0 mg/dLCritically high7.0-18.0The [facility] Medical CenterComment on above:Performed By: #### CMP ####[facility] Xwkpauzuxv[address] [place], [place] [address]Dr.Roxannelan ChangUrea nitrogen/Creatinine [Mass ratio] 21.1 mg/mgNormalThe [facility] Medical CenterComment on above:Performed By: #### CMP ####[facility] Mnozspfvfw6[address] [place], [place] [address]Dr. Grace ChangPROF CHEM 8 (BAS METB)on 52-64-5988Aebbh gap [Moles/Vol]11.0 mmol/L NormalThe [facility] Medical CenterComment on above:Performed By: #### BMP ####[facility] Xqiassaceh[address] [place], [place] [address]Dr.Grace Best Calcium [Mass/Vol]8.4 mg/dLCritically low8.5-10.1The [facility] Medical CenterComment on above:Performed By: #### BMP ####[facility] Nch[address]zxepv[address] [place], [place] [address]Dr.Yilan ChangChloride [Moles/Vol]101 mmol/LNormal 98-107The [facility] Medical CenterComment on above:Performed By: #### BMP ####[facility] Tslshslwgj[address] [place], [place] [address]Dr.Yilan ChangCO2 [Moles/Vol]24.4 mmol/MIfazgf68.0-32.0The [facility] Medical CenterComment on above: Performed By: #### BMP ####[facility] Wfufcogdzl[address] [place], [place] [address]Dr.Roxannelan ChangCreatinine [Mass/Vol]0.87 mg/dLNormal 0.55-1.02The [facility] Medical CenterComment on above:Performed By: #### BMP ####[facility] Fmorvmtuyo[address] [place], [place] [address]Dr. Yilan ChangEGFR-AF EGYPTIAN>60Normal>=60The [facility] Medical CenterComment on above: Performed By: #### BMP ####[facility] Lnzafrztco[address] [place], [place] [address]Dr.Yilan ChangEGFR-NON AF EGYPTIAN>60Normal>=60The [facility] Medical CenterComment on above:Performed By: #### BMP ####[facility] Ruxtpqekrb[address] [place], [place] [address]Dr.Yilan ChangGlucose [Mass/Vol]293 mg/dLCritically jcky97-713Gym [facility] Medical CenterComment on above: Performed By: #### BMP ####[facility] Cvdynzrffw[address] [place], [place] [address]Dr.Yilan ChangPotassium [Moles/Vol]4.4 mmol/LNormal 3.5-5.1The [facility] Medical CenterComment on above:Performed By: #### BMP ####[facility] Zsmzzjkoda[address] [place], [place] [address]Dr.Yilan Best Sodium [Moles/Vol]132 mmol/LCritically qsu793-835Wgt [facility] Medical CenterComment on above:Performed By: #### BMP ####[facility] [address]iucb[address] [place], [place] [address]Dr.Yilan ChangUrea nitrogen [Mass/Vol]25.0 mg/dL Critically high7.0-18.0The [facility] Medical CenterComment on above:Performed By: #### BMP ####[facility] Hpenveluuq[address] [place], [place] [address]Dr. Yilan ChangUrea nitrogen/Creatinine [Mass ratio]28.7 mg/mgNormalThe [facility] Medical CenterComment on above:Performed By: #### BMP ####[facility] [address]frgjhruxa[address] [place], [place] [address]Dr.Yiga ChangPROTIMEon 80-83-4780PBL Coag (PPP) [Relative time]0.93 {INR}NormalThe [facility] Comment on above:Performed By: #### PT, PTT ####[facility] [address] [place], [place] [address]Dr. Grace BestINR GUIDELINESSEE BELOWNormal The [facility]c Medical CenterComment on above:Result Comment: DESIRED INR: 2.0 - 3.0 CONDITIONS NOT LISTED BELOW 2.5 - 3.5 FOR PROSTHETIC HEART VALVE REPLACEMENT 2.5 - 3.5 RECURRENT THROMBOSISPerformed By: #### PT, PTT ####[facility] [address] [place] [address]DrGiancarlo Grace BestPT Coag (PPP) [Time]10.1 sNormal9.0-11.6The [facility] Medical CenterComment on above:Performed By: #### PT, PTT ####[facility] [address]clax[address] [place] [address]DrGiancarlo Grace NasirPTTon 78-64-2853qKVH Coag (Bld) [Time]26.2 kEydeyi17.3-36.2 [facility] CenterComment on above:Performed By: #### PT, PTT ####[facility] [address] [place] [address]Dr. Grace BestXR CHEST 1 Von 93-81-8470MP CHEST 1 VNormalThe [facility] Medical CenterCREATININE BLD Ordered By: Severo Gilmore on 62-82-5812Cnmnlozdaz [Mass/Vol]0.68 mg/dL0.58 - 0.96 mg/dLMercy Health – The Jewish HospitalGFR/1.73 sq M.predicted among non-blacks MDRD (S/P/Bld) [Vol rate/Area]103 mL/min/{1.73_m2}- PINHarrison Community HospitalComment on above: Estimated Glomerular Filtration [...] reflect actual GFR.Interpretation and review of laboratory resultsNormalCmccullough-hyde memorial hospitaland [facility] CenterCT Abdomen and Pelvis W contrast IVOrdered By: Ccf Provider on 25-84-0864Kxrdvebgikxvmm and review of laboratory resultsAbnormalCleveland ClinicRadiology ResultACTIONABLEAbnormal [facility] HospitalComment on above:This report contains an incidental or [...] contact your provider for the next steps. [facility] HospitalCT Abdomen and Pelvis W contrast [place] 49-35-8575AYUKDNFUBM: 1. Persistent indeterminate 2.3 x 1.5 cm [...] be communicated with the ordering provider via [employer] staff message or phone message by Imaging Support Services within 2 business days of report finalization. Algorithms for management of incidental imaging findings can be found on the [facility] Intranet Sharepoint site at: http://spo.[facility].org/documentation/mychartlinks/Managing%20Incidental%20Findi ngs%20at%20Imaging/Forms/AllItems.aspx Transcribe Date/Time: Oct 25 2021 5:36P Dictated by: ALEKSANDR KRUEGER MD This examination was interpreted and the report reviewed and electronically signed by: ALEKSANDR KRUEGER MD on Oct 25 2021 5:51PM EST Thank you for allowing us to participate in the care of your patient. Should there be any questions regarding this interpretation, please call [phone]. If you are unable to reach us at the number above, please feel free to contact [facility] eRadiology at [phone]. ZZZ_DO_NOT_USE_DIVISION OF RADIOLOGY* * *Final Report* * * DATE OF EXAM: Oct 25 2021 1:10PM [facility] 0530 - CT ABD/PEL W IVCON / [...] osseous abnormalities. Lower thorax: No focal consolidation. Automotive Drivability Technician (topogram) images: No additional findings. ZZZ_DO_NOT_USE_DIVISION OF RADIOLOGYProvider, [facility] [place] - 10/25/2021 * * *Final Report* * * DATE OF EXAM: Oct 25 2021 1:10PM [facility] 0530 - CT ABD/PEL W IVCON / [...] osseous abnormalities. Lower thorax: No focal consolidation. Automotive Drivability Technician (topogram) images: No additional findings. IMPRESSION IMPRESSION: [...] be communicated with the ordering provider via [employer] staff message or phone message by Imaging Support Services within 2 business days of report finalization. Algorithms for management of incidental imaging findings can be found on the [facility] Intranet Sharepoint site at: http://spo.[email or web address]/documentation/mychartlinks/Managing%20Incidental%20Findi ngs%20at%20Imaging/Forms/AllItems.aspx Transcribe Date/Time: Oct 25 2021 5:36P Dictated by: ALEKSANDR KRUEGER MD This examination was interpreted and the report reviewed and electronically signed by: ALEKSANDR KRUEGER MD on Oct 25 2021 5:51PM EST Thank you for allowing us to participate in the care of your patient. Should there be any questions regarding this interpretation, please call [phone]. If you are unable to reach us at the number above, please feel free to contact [facility] eRadiology at [phone]. [facility]iology Study observation (narrative)[facility] HospitalFoow Up (Endocrinology)on 12-52-5609Zudqul Up (Endocrinology)Diagnoses/Problems Assessed Insulin long-term use (V58.67) (Z79.4) Uncontrolled type 1 diabetes mellitus with hyperglycemia (250.83,790.29) (E10.65) Insulin pump status (V45.85) (Z96.41) Orders Uncontrolled type 1 diabetes mellitus with hyperglycemia Hemoglobin A1C; Status:Active; Requested for:[id number]; Perform:Lab Services - Lab To Draw (Blood Test); Due:01Vtx0613;Ordered; For:Uncontrolled type 1 diabetes mellitus with hyperglycemia; [...] current DM regimen. Home Glucose Monitoring: Source: [employer] tconnect device downloaded, reviewed and scanned into chart. Frequency of Testing: Testing done daily. Testing done with meals. Compliant with home glucose monitoring. Glucose Ranges: 76-380. No recent hypoglycemic episodes. Diet Plan: Type of Diet: Carb counting Patient is compliant with diet plan. 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 Diabetes Complications: Opthalmic: Has eye complications [...] apr 20 (stayed for 4 days at [facility]) - pt was not permitted to wear [...] emot (more content not included)...NormalUH TouchworksTobacco Screening.on 91-37-4857Gdjv risk assessmenta) No falls within the last awsaET-Tgsfdhtajdovy-URT Swarm Work Phone: Tobacco use status CPHSb) EwCD-Wyzgbxqdiqryj-HDS Swarm Work Phone: cOLONOSCOPY SCREENINGon 04-51-5743Gzqjelolw ClinicEGD DIAGNOSTICon 09-78-5221Phfcgaxqj ClinicGLUCOSE, BLOOD (POC)on 27-26-4960Hhqlfmo [Mass/Vol]65 mg/dL74 - 99 mg/dLMercy Health – The Jewish HospitalFollow Up (Endocrinology)on 09-49-9290Ndwswp Up (Endocrinology)Diagnoses/Problems Assessed Uncontrolled type 1 diabetes [...] hyperglycemia; CAL = N; Verified Transmission to [facility]; Last Updated By: System, Box; 06/21/2021 7:19:06 PM Patient Discussion/Summary Thank you [...] from use of her tandem tslim with [employer] software download. she continues to have [...] compliant with diet plan. 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 Diabetes Complications: Opthalmic: Has eye complications [...] apr 20 (stayed for 4 days at [facility]) - pt was not permitted to wear [...] risk assessmenta) No falls within the last ifmoXY-Xnnxfoaeexcpk-HNN [employer] 1600 Work Phone: Tobacco use status CPHSb) [facility] Swarm Work Phone: cT Chest WO contraston 00-09-3517YPNXSAOVVH: 1. Multiple bilateral pulmonary nodules measuring up [...] any questions regarding this interpretation, please call [phone]. If you are unable to reach us at the number above, please feel free to contact [facility] at [phone].DIVISION OF RADIOLOGY* * *Final Report* * * DATE OF EXAM: Mar 16 2021 2:58PM [facility] 0541 - CT CHEST WO IVCON / [...] No abnormality in the imaged upper abdomen. Automotive Drivability Technician (topogram) images: No additional findings. DIVISION OF RADIOLOGYProvider, [facility] [place] - 03/16/2021 * * *Final Report* * * DATE OF EXAM: Mar 16 2021 2:58PM [facility] 0541 - CT CHEST WO IVCON / [...] No abnormality in the imaged upper abdomen. Automotive Drivability Technician (topogram) images: No additional findings. IMPRESSION IMPRESSION: [...] any questions regarding this interpretation, please call [phone]. If you are unable to reach us at the number above, please feel free to contact [facility] eRadiology at [phone]. [facility] HospitalRadiology Study observation (narrative)[facility] Chest WO contrastOrdered By: Ccf Provider on 37-96-6180Rfxoxwjcw ClinicTobacco Screening.on 77-66-3515Bvew risk assessmenta) No falls within the last year FM-Dvsxchczgf-Cqltbyjj 2300 Work Phone: [phone] use status CPHSb) NoSE-Shwkcpdbyi-Bapmurmd 2300 Work Phone: [phone]-Gynecology Office/Clinic Noteon 75-18-5030Pzfykunbzw Office/Clinic NoteChief Complaint New pt. Establishing care, [...] traction and following with a neurologist in [place]. She is trying to avoid surgery. PMH: Type 1 DM, on insulin pump. She follows with endocrinology in [place]. Review of Systems Head Migraines: No Headaches: [...] on separately billable se (more content not included)...[facility] Hospital - DublinVitamin D 25 OHon 06-14-2019 Vitamin D 25 OH25.8 ng/mLLow30.0-100.0Protestant HospitalComment on above: Result Comment: Reference Range: Vitamin D status Range Deficiency <20 ng/mL Mild Deficiency 20-30 ng/mL Sufficiency 30-100 ng/mL Toxicity >100 ng/mLPerformed By: #### GLYHGB #### [facility] [address] [place] [address] Tunneller: Con Fernández MD #### VD25 #### [facility] HospitalSynchronized [address] [place] [address] Tunneller: Terrell Merida MDHemoglobin A1Con 29-53-5997JoH7v (Bld) [Mass fraction]10.5 %High4.8-5.9Protestant HospitalComment on above:Performed By: #### GLYHGB #### [facility] [address] [facility] [place] [address] Tunneller: Con Fernández MD #### VD25 #### [facility] [employer] [address] [place] [address] Tunneller: Terrell Merida MDHbA1c (Bld) [Mass fraction]255 mg/dLNormGeorgetown Behavioral HospitalComascension [facility] hospital on above:Result Comment: The ADA and AACC recommend providing the estimated average glucose result to permit better patient understanding of their HBA1c result.Performed By: #### GLYHGB #### [facility] [address] [place] [place] [address] Tunneller: Con Fernández MD #### VD25 #### [facility] [address] [place], [place] [address] Tunneller: Terrell Merida MDGlucose [Mass/Vol]255 mg/dLTyler, [place] Comment on above:The ADA and AACC recommend providing the estimated average glucose result to permit better patient understanding of their HBA1c result. HbA1c (Bld) [Mass fraction]10.5 %High4.8 - 5.9 %[place], [place] Interpretation and review of laboratory resultsAbnormalT[place], [place] Vitamin D 25 Hydroxyon 27-01-9057Widmlmonhuynzf and review of laboratory results AbnormalTyler, KYVit D, 25-Guktiic66.8 ng/mLLow30 - 100 ng/mLTyler, KYComment on above: Reference Range: Vitamin D status Range Deficiency <20 ng/mL Mild Deficiency 20-30 ng/mL Sufficiency 30-100 ng/mL Toxicity >100 ng/mL XR WRIST RIGHT (MIN 3 VIEWS)on 11-73-7974GB WRIST RIGHT (MIN 3 VIEWS)EXAM: XR WRIST RIGHT (MIN THREE VIEWS) HISTORY: M25.531, right wrist pain, 54-year-old female. COMPARISON: None. TECHNIQUE: Four views right wrist including ulnar deviated scaphoid view. FINDINGS: There is no significant degenerative change for age. No fracture or dislocation. IMPRESSION: Negative right wrist. Interpreted by: Dayday Rodríguez Jr., MD Signed by: Dayday Rodríguez Jr., MD 06/13/19 Final resultNormGeorgetown Behavioral HospitalNegative right wrist.[place], KYEXAM: XR WRIST RIGHT (MIN THREE VIEWS) HISTORY: M25.531, right wrist pain, 54-year-old female. COMPARISON: None. TECHNIQUE: Four views right wrist including ulnar deviated scaphoid view. FINDINGS: There is no significant degenerative change for age. No fracture or dislocation.[facility] LimaAnna Mhpn Incoming Radiant Results From [employer] - 06/13/2019 3:03 PM EST EXAM: XR WRIST RIGHT (MIN THREE VIEWS) HISTORY: M25.531, right wrist pain, 54-year-old female. COMPARISON: None. TECHNIQUE: Four views right wrist including ulnar deviated scaphoid view. FINDINGS: There is no significant degenerative change for age. No fracture or dislocation. IMPRESSION: Negative right wrist. [facility]ima, KYHemoglobin A1Con 90-44-6482EtS3s (Bld) [Mass fraction]269 {MG/DL}LU-Duhxlmehqqlrx-HdgehyhWesson Women'S Hospital Work Phone: HbA1c (Bld) [Mass fraction]11.0 % [facility] Work Phone: comment on above:Diagnosis of Diabetes-Adults Non- Diabetic: < or = 5.6% Increased risk for developing diabetes: 5.7-6.4% Diagnostic of diabetes: > or = 6.5%. Monitoring of Diabetes Age (y) Therapeutic Goal (%) Adults: >18 <7.0 Pediatrics: 13-18 <7.5 7-12 <8.0 0- 6 7.5-8.5 [place] [employer]. Diabetes Care 33(S1), Apr 2009.Metabolic Panelon 08-86-5701Tdncx gap [Moles/Vol]11 mmol/L10 - 91AF-Ebojjrbcuggka-BjucdefSaint John Of God Hospital Work Phone: calcium [Mass/Vol]9.6 mg/dL8.6 - 10.6 ZT-Njmzxqxuftnlp-DnnmjuqSaint [facility] Of God Hospital Work Phone: chloride [Moles/Vol]102 mmol/L98 - 107 AG-Lmsxybdgnxadt-HnaviciSaint John Of God Hospital Work Phone: cO2 [Moles/Vol]30 mmol/L21 - 32 MD-Dhucgiysiurbv-ShbnxtqWesson Women'S Hospital Work Phone: creatinine [Mass/Vol]0.73 mg/dLSee Below [facility] Work Phone: comment on above:Reference Range: 0.50 - 1.05Glucose [Mass/Vol]320 mg/dLabove high rszdzcaok49 - 15GF-Lwdgppmdmucij-JbidnkbSaint John Of God Hospital Work Phone: Potassium [Moles/Vol]4.1 mmol/L3.5 - 5.3 SJ-Rvxapnxiavhow-BjnbofiSaint John Of God Hospital Work Phone: Sodium [Moles/Vol]139 mmol/L136 - 145 XS-Xzjrhmxrlimzu-SiizmbeSaint [facility] Of God Hospital Work Phone: Urea nitrogen [Mass/Vol]16 mg/dL6 - 23 JZ-Rqhczgxlwcvtm-MijkamkSaint John Of God Hospital Work Phone: Otheron 02-18-2019>60>25DS-Jvjxjimvzoccr-PbkjgolSaint John Of God Hospital Work Phone: comment on above:CALCULATIONS OF ESTIMATED GFR ARE PERFORMED USING THE MDRD STUDY EQUATION FOR THE IDMS-TRACEABLE CREATININE METHODS. CLIN CHEM 2007;53:766-72 Vital Signs Date TimeVital SignValuePerforming NuipisphwHqksdqqc28-19-2535 11:23-0400Body zbdhiw183.64 cmBenjamin momondo DO Work Phone: [facility]09-17-2025 11:23-0400 Body mass index (BMI) [Ratio]25.8 kg/e3Rxrjybtj Ball DO Work Phone: [facility]09-17-2025 11:23-0400 Body haipzd45.57 kgBenjarussell county medical center Ball DO Work Phone: [facility]09-17-2025 11:04-0400 Body qjlxujbtjfh21.7 [degF]Juliette momondo DO Work Phone: [facility]09-17-2025 11:04-0400 Diastolic blood dvafgkdl91 mm[Hg]Juliette momondo DO Work Phone: [facility]09-17-2025 11:04-0400 Heart rate73 /minBenjamin Ball DO Work Phone: [facility]09-17-2025 11:04-0400 Respiratory rate18 /minBenjamin Ball DO Work Phone: [phone])[address] [place], [place] 2068909-17-2025 11:04-0400 Systolic blood rqdahqko839 mm[Hg]Juliette Ball DO Work Phone: [phone])[address] [place], [place] 2068909-12-2025 11:30-0400 Body lbjbyl628.64 cmBenjamin Ball DO Work Phone: [phone])[address] [place], [place] 2068909-12-2025 11:30-0400 Diastolic blood ueyyezgb61 mm[Hg]Juliette Ball DO Work Phone: [phone])[address] [place], [place] 2068909-12-2025 11:30-0400 Heart rate86 /minBenjamin Ball DO Work Phone: [phone])[address] [place], [place] 2068909-12-2025 11:30-0400 Respiratory rate12 /minBenjamin Ball DO Work Phone: [phone])[address] [place], [place] 2068909-12-2025 11:30-0400 Systolic blood rlqljsyj907 mm[Hg]Juliette Ball DO Work Phone: [phone])[address] [place], [place] 2068908-27-2025 11:22-0400 Body .64 cmBenjamin Ball DO Work Phone: [phone])[address] [place], [place] 2068908-27-2025 11:22-0400 Body mass index (BMI) [Ratio]25.8 kg/y2Mokudmsx Ball DO Work Phone: [phone])[address] [place], [place] 2068908-27-2025 11:22-0400 Body .57 kgBenjamin Ball DO Work Phone: [phone])[address] [place], [place] 2068908-27-2025 11:09-0400 Body yboyvfeavwr87.4 [degF]Juliette Ball DO Work Phone: [phone])[address] [place], [place] 2068908-27-2025 11:09-0400 Diastolic blood mnsaeqth79 mm[Hg]Juliette Ball DO Work Phone: [phone])[address] [place], [place] 2068908-27-2025 11:09-0400 Heart rate77 /minBenjamin Ball DO Work Phone: [phone]08-27-2025 11:09-0400 Respiratory rate18 /minBenjamin Ball DO Work Phone: [phone]08-27-2025 11:09-0400 Systolic blood utdrvszw202 mm[Hg]Juliette Ball DO Work Phone: 1(658)457-[address] [place], [place] 5775408-06-2025 10:15-0400 Body gaykvr955.64 cmBenjamin Ball DO Work Phone: 1(259)965-[address] [place], [place] 5775408-06-2025 10:15-0400 Diastolic blood tjqobocm28 mm[Hg]Juliette Ball DO Work Phone: 1(525)372-[address] [place], [place] 5775408-06-2025 10:15-0400 Heart rate82 /minBenjamin Ball DO Work Phone: 1(201)069-[address] [place], [place] 5775408-06-2025 10:15-0400 Respiratory rate12 /minBenjamin Ball DO Work Phone: 1(937)995-[address] [place], [place] 5775408-06-2025 10:15-0400 Systolic blood mm[Hg]Juliette Ball DO Work Phone: 1(539)151-[address] [place], [place] 5775407-09-2025 14:10-0400 Body .6 cmVcarleen Little PA-C Work Phone: [facility]07-09-2025 14:10-0400Body mass index (BMI) [Ratio]27.76 kg/k3ZzriebwwBianca Little PA-C Work Phone: [facility]07-09-2025 14:10-0400Body .02 kgBianca Little PA-C Work Phone: [facility]07-09-2025 14:10-0400Diastolic blood yxjsioqy46 mm[Hg]Bianca Little PA-C Work Phone: [facility]07-09-2025 14:10-0400Heart rate80 /min Bianca Little PA-C Work Phone: [facility]07-09-2025 14:10-1990NuO7% (BldA) [Mass fraction]97 %Bianca Little PA-C Work Phone: [phone]07-09-2025 14:10-0400Systolic blood rtdejbxt006 mm[Hg]Bianca Little PA-C Work Phone: [phone]06-26-2025 13:12-0400Diastolic blood ugpvwpni29 mm[Hg]Marlene Schwieterman PA-C Work Phone: [phone] Hospital ToledoNowqga12-82-5586 13:12-0400Heart rate75 /min Marlene Schwieterman PA-C Work Phone: [phone] Hospital ToledoEddyxw65-79-2043 13:12-9211VzT2% (BldA) [Mass fraction]97 %Marlene Schwieterman PA-C Work Phone: [phone] Hospital ToledoYhacby34-96-1553 13:12-0400Systolic blood ixjoskla463 mm[Hg]Marlene Schwieterman PA-C Work Phone: [phone] Hospital ToledoZyrvih55-03-5007 14:34-0400Body .64 cmBenjamin Ball DO Work Phone: [facility]04-22-2025 14:34-0400 Body mass index (BMI) [Ratio]23.8 kg/h2Gsmpkauk Ball DO Work Phone: [facility]04-22-2025 14:34-0400 Body agbdpx70.13 kgBenjamin Ball DO Work Phone: [facility]04-22-2025 14:34-0400 Diastolic blood aggwedxe19 mm[Hg]Juliette Ball DO Work Phone: [facility]04-22-2025 14:34-0400 Heart rate89 /minBenjamin Ball DO Work Phone: [facility]04-22-2025 14:34-0400 Respiratory rate12 /minBenjamin Ball DO Work Phone: [facility]04-22-2025 14:34-0400 Systolic blood mm[Hg]Juliette Ball DO Work Phone: [facility]04-18-2025 08:57-0400 Body rzyeqd850.1 cmCaleb Schwieterman PA-C Work Phone: [phone] Hospital ToledoZjlmgs17-75-9900 08:57-0400Body mass index (BMI) [Ratio]24.63 kg/e8Ulwwr Schwieterman PA-C Work Phone: [phone] Hospital ToledoNkzcxy21-54-9392 08:57-0400Body dglrza33.13 kgCaleb Schwieterman PA-C Work Phone: [phone] Hospital ToledoLprfml14-02-0855 08:57-0400Diastolic blood mm[Hg]Marlene Schwieterman PA-C Work Phone: [phone] Hospital ToledoJbudoh43-61-8860 08:57-0400Heart rate77 /min Marlene Schwieterman PA-C Work Phone: [phone] Hospital ToledoBmmfqp92-67-3293 08:57-2993SyI4% (BldA) [Mass fraction]99 %Marlene Schwieterman PA-C Work Phone: [phone] Hospital ToledoXazhbw94-87-4363 08:57-0400Systolic blood ggcpauel616 mm[Hg]Marlene Schwieterman PA-C Work Phone: [phone] [address]-17-2025 11:25-0400Body .64 cmBenjamin Ball DO Work Phone: [facility]04-17-2025 11:25-0400 Body mass index (BMI) [Ratio]23.8 kg/m8Iprntzio Ball DO Work Phone: [facility]04-17-2025 11:25-0400 Body .13 kgBenjamin Ball DO Work Phone: [phone]04-17-2025 11:03-0400 Body uwhmpwaleqx35 [degF]Juliette Ball DO Work Phone: 1(500)[facility] [place], [place] 5775404-17-2025 11:03-0400 Diastolic blood rsazkvxz09 mm[Hg]Juliette Ball DO Work Phone: 1419)[facility] [place], [place] 5775404-17-2025 11:03-0400 Heart rate79 /minBenjamin Ball DO Work Phone: [phone])542-[address] [place], [place] 5775404-17-2025 11:03-0400 Respiratory rate18 /minBenjamin Ball DO Work Phone: 1(043)[address] [place], [place] 2068904-17-2025 11:03-0400 Systolic blood osatcomm793 mm[Hg]Juliette Ball DO Work Phone: 1(367)[address] [place], [place] 2068904-10-2025 15:23-0400 Body fqqanw193.64 cmBenjamin Ball DO Work Phone: 1(182)[address] [place], [place] 2068904-10-2025 15:23-0400 Body mass index (BMI) [Ratio]23.8 kg/r0Olonnfhc Ball DO Work Phone: 1(488)[address] [place], [place] 2068904-10-2025 15:23-0400 Body wdgddo65.13 kgBenjamin Ball DO Work Phone: 1(572)[address] [place], [place] 2068904-10-2025 14:54-0400 Body nlllswpsgga66.7 [degF]Juliette Ball DO Work Phone: 1(403)[facility] [place], [place] 5775404-10-2025 14:54-0400 Diastolic blood xbneenec88 mm[Hg]Juliette Ball DO Work Phone: 1(987)[facility] [place], [place] 5775404-10-2025 14:54-0400 Heart rate90 /minBenjamin Ball DO Work Phone: 1(599)[facility] [place], [place] 5775404-10-2025 14:54-0400 Respiratory rate18 /minBenjamin Ball DO Work Phone: [facility]04-10-2025 14:54-0400 Systolic blood qgveewjf515 mm[Hg]Juliette Ball DO Work Phone: [facility]04-08-2025 15:21-0400 Body ehthkvaxips013.09 [degF]Noel Daniels MD Work Phone: [phone]04-08-2025 15:21-0400Diastolic blood xckesxqa27 mm[Hg]Noel Daniels MD Work Phone: [phone]04-08-2025 15:21-0400Heart rate81 /min Noel Daniels MD Work Phone: [phone]04-08-2025 15:21-5612PeE5% (BldA) [Mass fraction]98 %Noel Daniels MD Work Phone: [phone]04-08-2025 15:21-0400Systolic blood kuxajcqt520 mm[Hg]Noel Daniels MD Work Phone: [phone]04-03-2025 12:45-0400Diastolic blood mm[Hg]Marlene Schwieterman PA-C Work Phone: [phone] Hospital ToledoFeuibn33-08-2290 12:45-0400Heart rate65 /min Marlene Schwieterman PA-C Work Phone: [phone] Hospital ToledoYyiieg17-98-4972 12:45-4430NrK2% (BldA) [Mass fraction]99 %Marlene Schwieterman PA-C Work Phone: [phone] Hospital ToledoGmyjfw63-65-9772 12:45-0400Systolic blood zudnujzr902 mm[Hg]Marlene Schwieterman PA-C Work Phone: [phone] Hospital ToledoJswdjz31-09-3816 13:09-0400Body ctsilk289.64 cmBenjamin Ball DO Work Phone: [facility]03-20-2025 13:09-0400 Body mass index (BMI) [Ratio]23.8 kg/a8Xohcjduy Ball DO Work Phone: 1(293)[address] [place], [place] 2068903-20-2025 13:09-0400 Body mnsdox38.13 kgBenjamin Ball DO Work Phone: 1419)[address] [place], [place] 2068903-20-2025 13:01-0400 Body byufnxoswqa17.9 [degF]Juliette Ball DO Work Phone: [address] [place], [place] 2068903-20-2025 13:01-0400 Diastolic blood mm[Hg]Juliette Ball DO Work Phone: 1419)[address] [place], [place] 2068903-20-2025 13:01-0400 Heart rate78 /minBenjamin Ball DO Work Phone: 1419)[address] [place], [place] 2068903-20-2025 13:01-0400 Respiratory rate20 /minBenjamin Ball DO Work Phone: 1(363)[address] [place], [place] 2068903-20-2025 13:01-0400 Systolic blood qnptcrti726 mm[Hg]Juliette Ball DO Work Phone: 1(145)[address] [place], [place] 2068903-07-2025 13:37-0500 Body quaijl504.64 cmBenjamin Ball DO Work Phone: 1(994)[address] [place], [place] 2068903-07-2025 13:37-0500 Body mass index (BMI) [Ratio]23.8 kg/b9Zfctgwoc Ball DO Work Phone: 1(050)[address] [place], [place] 2068903-07-2025 13:37-0500 Body kxsxwu81.13 kgBenjamin Ball DO Work Phone: [address] [place], [place] 2068903-07-2025 13:37-0500 Diastolic blood gmjfqidv79 mm[Hg]Juliette Ball DO Work Phone: 1(224)[address] [place], [place] 2068903-07-2025 13:37-0500 Heart rate79 /minBenjamin Ball DO Work Phone: 1(059)[address] [place], [place] 2068903-07-2025 13:37-0500 Respiratory rate12 /minBenjamin Ball DO Work Phone: 1(931)[address] [place], [place] 2068903-07-2025 13:37-0500 Systolic blood viydvdsv447 mm[Hg]Juliette Ball DO Work Phone: 1419)[address] [place], [place] 2068903-06-2025 15:41-0500 Body qtwmdy865.64 cmBenjamin Ball DO Work Phone: 1419)[address] [place], [place] 2068903-06-2025 15:41-0500 Body mass index (BMI) [Ratio]23.8 kg/w9Bddoeoew Ball DO Work Phone: 1419)[address] [place], [place] 2068903-06-2025 15:41-0500 Body akjabc67.13 kgBenjamin Ball DO Work Phone: 1(057)[address] [place], [place] 2068903-06-2025 15:23-0500 Body .7 [degF]Juliette Ball DO Work Phone: 1(843)[address] [place], [place] 2068903-06-2025 15:23-0500 Diastolic blood vhldajap01 mm[Hg]Juliette Ball DO Work Phone: 1(119)[address] [place], [place] 2068903-06-2025 15:23-0500 Heart rate81 /minBenjamin Ball DO Work Phone: 1(346)[address] [place], [place] 2068903-06-2025 15:23-0500 Respiratory rate16 /minBenjamin Ball DO Work Phone: 1(097)[address] [place], [place] 2068903-06-2025 15:23-0500 Systolic blood xdubauqi767 mm[Hg]Juliette Ball DO Work Phone: 1419)[address] [place], [place] 2068902-25-2025 11:51-0500 Body dionnhswegr50.2 [degF]Juliette Ball DO Work Phone: 1419)[facility] [place], [place] 5775402-25-2025 11:51-0500 Diastolic blood ttbxdejt59 mm[Hg]Juliette Ball DO Work Phone: 1419)[facility] [place], [place] 5775402-25-2025 11:51-0500 Heart rate82 /minBenjamin Ball DO Work Phone: 1419)[facility] [place], [place] 5775402-25-2025 11:51-0500 Respiratory rate16 /minBenjamin Ball DO Work Phone: 1419)[address] [place], [place] 2068902-25-2025 11:51-0500 SaO2% (BldA) [Mass fraction]98 %Juliette Ball DO Work Phone: 1419)[facility] [place], [place] 5775402-25-2025 11:51-0500 Systolic blood ynbrzbmj634 mm[Hg]Juliette Ball DO Work Phone: 1419)[address] [place], [place] 2068902-18-2025 09:46-0500 Body .64 cmBenjamin Ball DO Work Phone: 1419)[address] [place], [place] 2068902-18-2025 09:46-0500 Body mass index (BMI) [Ratio]23.8 kg/i5Nzgmytqg Ball DO Work Phone: 1(568)[address] [place], [place] 2068902-18-2025 09:46-0500 Body fxgfeo01.13 kgBenjamin Ball DO Work Phone: 1(607)[address] [place], [place] 2068902-18-2025 09:27-0500 Body hwxieowuxin79.6 [degF]Juliette Ball DO Work Phone: 1(494)[address] [place], [place] 2068902-18-2025 09:27-0500 Diastolic blood vtygwepq46 mm[Hg]Juliette Ball DO Work Phone: 1(969)[address] [place], [place] 2068902-18-2025 09:27-0500 Heart rate71 /minBenjamin Ball DO Work Phone: 1419)[facility] [place], [place] 5775402-18-2025 09:27-0500 Respiratory rate18 /minBenjamin Ball DO Work Phone: 1(365)[address] [place], [place] 2068902-18-2025 09:27-0500 Systolic blood pqceduyl068 mm[Hg]Juliette Ball DO Work Phone: 1419)[address] [place], [place] 2068902-06-2025 12:07-0500 Body nusuxp497.64 cmBenjamin Ball DO Work Phone: 1(149)208-[address] [place], [place] 5775402-06-2025 12:07-0500 Body mass index (BMI) [Ratio]23.8 kg/z7Vkpkbibr Ball DO Work Phone: 1(390)[address] [place], [place] 2068902-06-2025 12:07-0500 Body njywpl68.13 kgBenjamin Ball DO Work Phone: 1(911)[address] [place], [place] 2068902-06-2025 12:07-0500 Diastolic blood xhhficff74 mm[Hg]Juliette Ball DO Work Phone: 1(543)[address] [place], [place] 2068902-06-2025 12:07-0500 Heart rate97 /minBenjamin Ball DO Work Phone: 1(254)[address] [place], [place] 2068902-06-2025 12:07-0500 Systolic blood robvkumj131 mm[Hg]Juliette Ball DO Work Phone: 1(048)[address] [place], [place] 2068902-04-2025 14:44-0500 Body aohcgg380.64 cmBenjamin Ball DO Work Phone: 1(140)[address] [place], [place] 2068902-04-2025 14:44-0500 Body mass index (BMI) [Ratio]23.8 kg/s2Xfkfbwzs Ball DO Work Phone: 1(630)[address] [place], [place] 2068902-04-2025 14:44-0500 Body pijlfy66.13 kgBenjamin Ball DO Work Phone: 1(026)[address] [place], [place] 2068902-04-2025 14:25-0500 Body hgrqiijthmp77.4 [degF]Juliette Ball DO Work Phone: 1(176)[address] [place], [place] 2068902-04-2025 14:25-0500 Diastolic blood mm[Hg]Juliette Ball DO Work Phone: 1(182)[facility] [place], [place] 5775402-04-2025 14:25-0500 Heart rate79 /minBenjamin Ball DO Work Phone: 1(163)[address] [place], [place] 2068902-04-2025 14:25-0500 Respiratory rate16 /minBenjamin Ball DO Work Phone: [facility]02-04-2025 14:25-0500 Systolic blood srazihpk811 mm[Hg]Juliette Ball DO Work Phone: [facility]01-14-2025 13:20-0500 Body rnwhha629.64 cmUniversity [facility]als [facility]01-14-2025 13:20-0500 Diastolic blood buithgti58 mm[Hg][facility]01-14-2025 13:20-0500Heart rate73 /[facility]01-14-2025 13:20-0500Respiratory rate12 /[facility]01-14-2025 13:20-0500Systolic blood sxjvjicn392 mm[Hg][facility] 04-22-2024 13:28-0500Body duhtzjfshql83.91 [degF]Noel Daniels MD Work Phone: [facility]01-07-2025 13:28-0500Diastolic blood umxrzrxp99 mm[Hg]Noel Daniels MD Work Phone: [facility]01-07-2025 13:28-0500Heart rate75 /min Noel Daniels MD Work Phone: [facility]01-07-2025 13:28-0500Systolic blood onkgfuww215 mm[Hg]Noel Daniels MD Work Phone: [facility]12-31-2024 11:44-0500Body temperature 99.5 [degF]Noel Daniels MD Work Phone: [facility]12-31-2024 11:44-0500Diastolic blood mm[Hg]Noel Daniels MD Work Phone: [facility]12-31-2024 11:44-0500Heart rate75 /min Noel Daniels MD Work Phone: [facility]12-31-2024 11:44-0500Systolic blood mm[Hg]Noel Daniels MD Work Phone: [facility]12-26-2024 13:32-0500Diastolic blood mm[Hg]Marlene Schwieterman PA-C Work Phone: [phone] Hospital ToledoAewpun30-79-5983 13:32-0500Heart rate97 /min Marlene Schwieterman PA-C Work Phone: [phone] Hospital ToledoGncbqu02-70-3121 13:32-4967NoR6% (BldA) [Mass fraction]96 %Marlene Schwieterman PA-C Work Phone: 1)[phone] Hospital ToledoUotovp91-42-8000 13:32-0500Systolic blood mm[Hg]Marlene Schwieterman PA-C Work Phone: [phone] Hospital ToledoBzmabe46-48-7425 12:08-0500Body temperature 98.8 [degF]Jamie Mccarty MD Work Phone: 1)[phone] Hospital ToledoVlnrbj96-68-7663 12:08-0500Diastolic blood sygmwquj56 mm[Hg]Jamie Mccarty MD Work Phone: 1)[phone] Hospital ToledoXvymdc06-76-2292 12:08-0500Heart rate97 /min Jamie Mccarty MD Work Phone: [phone])[phone] Hospital ToledoStpdnn38-32-4572 12:08-0500Respiratory rate 18 /minJamie Mccarty MD Work Phone: [phone] Hospital ToledoTswjwq41-19-3466 12:08-0377SyD7% (BldA) [Mass fraction]96 %Jamie Mccarty MD Work Phone: [phone])996-6560DRegency Hospital ToledoGertok16-60-3681 12:08-0500Systolic blood hmawxnuc871 mm[Hg]Jamie Mccarty MD Work Phone: [phone] [address]-06-2024 10:57-0500Diastolic blood mmfawzxx72 mm[Hg]Reggie Butler MD Work Phone: [place] [address]-06-2024 10:57-0500Heart rate86 /min Reggie Butler MD Work Phone: [facility]12-06-2024 10:57-6954OoW2% (BldA) [Mass fraction]100 %Reggie Butler MD Work Phone: [facility]12-06-2024 10:57-0500Systolic blood rkoumqpm136 mm[Hg]Reggie Butler MD Work Phone: [facility]12-03-2024 09:10-0500Diastolic blood mm[Hg]Shelbi Ramos MD Work Phone: [facility]12-03-2024 09:10-0500Heart rate75 /min Shelbi Ramos MD Work Phone: [facility]12-03-2024 09:10-0500Systolic blood ybswauwx341 mm[Hg]Shelbi Ramos MD Work Phone: [facility]11-11-2024 16:02-0500Body elpeib435.64 cmUniversity [facility]11-11-2024 16:02-0500Body mass index (BMI) [Ratio]23.8 kg/r1EluwtszkkUniversity Hospitals [facility]11-11-2024 16:02-0500Body hhtiot56.13 kgUniversity [facility]als [facility]11-11-2024 16:02-0500Diastolic blood umweafwv23 mm[Hg][facility]11-11-2024 16:02-0500 Heart rate86 /[facility]11-11-2024 16:02-0500 Respiratory rate12 /[facility]11-11-2024 16:02-0500 Systolic blood tqeozuqb077 mm[Hg][facility]10-30-2024 09:49-0400Body vlaahm833.1 cmRpaz Oconnor MD Work Phone: [facility]10-30-2024 09:49-0400Body mass index (BMI) [Ratio]24.63 kg/b8HwfzjufCon Oconnor MD Work Phone: [facility]10-30-2024 09:49-0400Body nuwqfh84.13 kgCon Oconnor MD Work Phone: [facility]10-30-2024 09:49-0400Diastolic blood bwqtgwwe53 mm[Hg]Con Oconnor MD Work Phone: [facility]10-30-2024 09:49-0400Heart rate79 /min Con Oconnor MD Work Phone: [phone]10-30-2024 09:49-5170YgZ4% (BldA) [Mass fraction]100 %Con Oconnor MD Work Phone: [facility]10-30-2024 09:49-0400Systolic blood lgpqqasm008 mm[Hg]Con Oconnor MD Work Phone: [facility]10-25-2024 14:54-0400Diastolic blood burwzpti28 mm[Hg]Con Oconnor MD Work Phone: [facility]10-25-2024 14:54-0400Heart rate89 /min Con Oconnor MD Work Phone: [facility]10-25-2024 14:54-7316XzN6% (BldA) [Mass fraction]98 %Con Oconnor MD Work Phone: [facility]10-25-2024 14:54-0400Systolic blood miwrfmly873 mm[Hg]Con Oconnor MD Work Phone: [phone]10-23-2024 11:18-0400Body mass index (BMI) [Ratio]24.63 kg/e3FrbtqlRuddy Gupta MD Work Phone: [facility]10-23-2024 11:18-0400Body vobtlo50.13 kgRuddy Gupta MD Work Phone: [facility] HospitalComment on above:patient reported 02-06-2024 11:18-0400Diastolic blood skvcqbit75 mm[Hg]Ruddy Gupta MD Work Phone: [facility]10-23-2024 11:18-0400Heart rate74 /min Ruddy Gupta MD Work Phone: [phone]10-23-2024 11:18-0400Systolic blood jnszacou903 mm[Hg]Ruddy Gupta MD Work Phone: [phone]09-27-2024 14:39-0400Body kwcymo544.1 Wili Daniels MD Work Phone: [phone] [address]-27-2024 14:39-0400Body mass index (BMI) [Ratio]24.63 kg/e8FftfbNoel Daniels MD Work Phone: [phone] [address]-27-2024 14:39-0400Body pidfpa79.13 kgNoel Daniels MD Work Phone: [phone] [address]-27-2024 14:39-0400Diastolic blood aeljcyyo41 mm[Hg]Noel Daniels MD Work Phone: 1)[phone] [address]-27-2024 14:39-0400Heart rate61 /min Noel Daniels MD Work Phone: [phone] [address]-27-2024 14:39-1404HpQ3% (BldA) [Mass fraction]100 %Noel Daniels MD Work Phone: [phone]09-27-2024 14:39-0400Systolic blood gisqsyen932 mm[Hg]Noel Daniels MD Work Phone: [phone]09-26-2024 15:15-0400Body mass index (BMI) [Ratio]24.87 kg/m2IvgbziJamie Mccarty MD Work Phone: [phone])711-8889WRegency Hospital ToledoFyzrnf94-97-6765 15:15-0400Body temperature 97.59 [degF]Jamie Mccarty MD Work Phone: [phone] [address]-26-2024 15:15-0400Body ynwkod39.85 kgJamie Mccarty MD Work Phone: [phone] [place] [address]-26-2024 15:15-0400Diastolic blood kctbytaj50 mm[Hg]Jamie Mccarty MD Work Phone: [phone])[phone] Hospital ToledoQuzwmd23-16-7693 15:15-0400Heart rate68 /min Jamie Mccarty MD Work Phone: [phone])805-4541GRegency Hospital ToledoMlrwmy98-43-6015 15:15-0400Respiratory rate 18 /minJamie Mccarty MD Work Phone: [phone] Hospital ToledoEzozxz62-67-2146 15:15-6297IjP2% (BldA) [Mass fraction]97 %Jamie Mccarty MD Work Phone: [phone])981-8672ERegency Hospital ToledoRkzfyf75-71-9032 15:15-0400Systolic blood drebzgsc091 mm[Hg]Jamie Mccarty MD Work Phone: [phone])[phone] Hospital ToledoCojktm03-20-1988 09:00-0400Respiratory rate 16 /minSharan Dominguez APRN.[employer] Work Phone: [phone]09-06-2024 11:17-0400Body temperature 98.01 [degF]Jamie Mccarty MD Work Phone: [phone])[phone] Hospital ToledoTjbrbi06-81-3816 11:17-0400Diastolic blood duinkydn27 mm[Hg]Jamie Mccarty MD Work Phone: [phone])[phone] Hospital ToledoIhctti70-27-4338 11:17-0400Heart rate60 /min Jamie Mccarty MD Work Phone: [phone] Hospital ToledoRjiylp32-71-2113 11:17-0400Respiratory rate 16 /minJamie Mccarty MD Work Phone: [phone])[phone] Hospital ToledoBfcwzy03-45-8508 11:17-9691MwB4% (BldA) [Mass fraction]100 %Jamie Mccarty MD Work Phone: [phone])761-4218BRegency Hospital ToledoXcrojw81-50-0375 11:17-0400Systolic blood dzesfhcb294 mm[Hg]Jamie Mccarty MD Work Phone: [phone])077-6976RRegency Hospital ToledoIeeahm67-53-1365 09:21-0400Diastolic blood ghqsjbwo40 mm[Hg]Reggie Butler MD Work Phone: [phone]09-06-2024 09:21-0400Heart rate75 /min Reggie Butler MD Work Phone: [phone]09-06-2024 09:21-4106TkL7% (BldA) [Mass fraction]98 %Reggie Butler MD Work Phone: [phone]09-06-2024 09:21-0400Systolic blood zehqlusq463 mm[Hg]Reggie Butler MD Work Phone: [phone]08-20-2024 10:40-0400Body amyuhd200.6 cmAshakira Daniels MD Work Phone: [phone]08-20-2024 10:40-0400Body mass index (BMI) [Ratio]24.87 kg/s7MsnanNoel Daniels MD Work Phone: [phone]08-20-2024 10:40-0400Body temperature 98.01 [degF]Noel Daniels MD Work Phone: [phone]08-20-2024 10:40-0400Body .85 kgNoel Daniels MD Work Phone: [phone]08-20-2024 10:40-0400Diastolic blood noljnrzc28 mm[Hg]Noel Daniels MD Work Phone: [phone]08-20-2024 10:40-0400Heart rate81 /min Noel Daniels MD Work Phone: [phone]08-20-2024 10:40-0400Systolic blood ofjttvjz877 mm[Hg]Noel Daniels MD Work Phone: [phone]08-02-2024 16:01-0400Body temperature 98.1 [degF]Jamie Mccarty MD Work Phone: [phone]79-33-1661 16:01-0400Diastolic blood mm[Hg]Jamie Mccarty MD Work Phone: [phone] Didbmh39-88-0885 16:01-0400Heart rate79 /min Jamie Mccarty MD Work Phone: [place] Mkjioe50-60-6820 16:01-0400Respiratory rate 16 /minJamie Mccarty MD Work Phone: [phone] Oasizs74-19-1539 16:01-8779ZvE0% (BldA) [Mass fraction]100 %Jamie Mccarty MD Work Phone: [phone] Khrkkb26-60-8132 16:01-0400Systolic blood ubxiejuy301 mm[Hg]Jamie Mccarty MD Work Phone: [facility] Zldlyr44-47-4459 12:43-0400Diastolic blood wnlmnyui13 mm[Hg]Marlene Schwieterman PA-C Work Phone: [phone] [facility] Sahlva70-75-6206 12:43-0400Heart rate66 /min Marlene Schwieterman PA-C Work Phone: [phone]and Hyiaku63-77-9553 12:43-1522IrQ1% (BldA) [Mass fraction]99 %Marlene Schwieterman PA-C Work Phone: [phone] Svcuym83-66-2516 12:43-0400Systolic blood qizriyos193 mm[Hg]Marlene Schwieterman PA-C Work Phone: [phone] Ooaoko15-71-1126 23:45-0400Hourly Rounding [facility] HospitalComment on above:Result Comment: [facility] here for transport. Report given to the medic.10-06-2023 23:45-0400Hourly RoundingC[facility] Clinic Lutheran HospitalComment on above:Result Comment: Patient transferred to [facility] via [facility].10-06-2023 23:00-0400Diastolic blood fjwcazhf96 mm[Hg][facility]06-22-2024 23:00-0400Heart rate77 /minC[facility]06-22-2024 23:00-0400Hourly [facility]ingC[facility]06-22-2024 23:00-0400Mean blood mm[Hg][facility]06-22-2024 23:00-7543CsU6% (BldA) [Mass fraction]99 %[facility]06-22-2024 23:00-0400Systolic blood pressure 126 mm[Hg][facility]06-22-2024 22:00-0400 Diastolic blood dujntduv96 mm[Hg][facility] 10-06-2023 22:00-0400Heart rate76 /minC[facility]06-22-2024 22:00-0400Mean blood scvkuvie53 mm[Hg][facility]06-22-2024 22:00-0400Respiratory rate16 /[facility]06-22-2024 22:00-5161EzC9% (BldA) [Mass fraction]98 %[facility]06-22-2024 22:00-0400Systolic blood mihftpgx183 mm[Hg][facility]06-22-2024 21:00-0400Diastolic blood lyjdtekh38 mm[Hg][facility]06-22-2024 21:00-0400Heart rate69 /minC[facility]06-22-2024 21:00-0400Mean blood mm[Hg][facility]06-22-2024 21:00-0400Respiratory rate18 /min[facility]06-22-2024 21:00-7087JnK3% (BldA) [Mass fraction]97 %[facility]06-22-2024 21:00-0400Systolic blood mafhlxgf951 mm[Hg][facility]06-22-2024 20:00-0400Respiratory rate20 /[facility] 10-06-2023 11:41-0400Body yeuueifkbdf11.78 [degF][facility]06-22-2024 11:41-0400Heart rate87 /minC[facility]06-20-2024 12:08-0400Body mass index (BMI) [Ratio]19.69 kg/m2 Jamie Mccarty MD Work Phone: [facility]Reg[facility] ToledoMrmlke51-70-5041 12:08-0400Body temperature 98.1 [degF]Jamie Mccarty MD Work Phone: [facility] ToledoOngnxn53-76-1127 12:08-0400Body .34 kgJamie Mccarty MD Work Phone: [facility] ToledoQfnozt42-60-7755 12:08-0400Diastolic blood dyipdffh40 mm[Hg]Jamie Mccarty MD Work Phone: [facility] ClinicComment on above:Provider is aware 10-04-2023 12:08-0400Heart rate70 /minJamie Mccarty MD Work Phone: [facility] ToledoJhmobz40-98-6523 12:08-0400Respiratory rate 16 /minJamie Mccarty MD Work Phone: [facility] ToledoNihrui25-09-4513 12:08-3487WiU1% (BldA) [Mass fraction]98 %Jamie Mccarty MD Work Phone: [facility] ToledoEhtdcx16-25-6003 12:08-0400Systolic blood grsemjfa42 mm[Hg]Jamie Mccarty MD Work Phone: [facility] ClinicComment on above:Provider is aware 09-25-2023 15:18-0400Body zgkbhy968.64 cm[facility] 09-25-2023 15:18-0400Body mass index (BMI) [Ratio]22.4 kg/v0ZmtywlovhUniversity Hospitals [facility]06-11-2024 15:18-0400Body ooydzd56.04 kgUniversity [facility]06-11-2024 15:18-0400Diastolic blood frodxrgj11 mm[Hg][facility]06-11-2024 15:18-0400Heart rate78 /[facility]06-11-2024 15:18-0400Respiratory rate12 /[facility]06-11-2024 15:18-0400Systolic blood fjmhesty885 mm[Hg][facility]06-04-2024 08:12-0400Diastolic blood zwytkkhg99 mm[Hg]Tonie Rosado MD Work Phone: [facility]06-04-2024 08:12-0400Heart rate74 /min Tonie Rosado MD Work Phone: [facility]06-04-2024 08:12-7058RuF9% (BldA) [Mass fraction]99 %Tonie Rosado MD Work Phone: [facility]06-04-2024 08:12-0400Systolic blood aphosxgl395 mm[Hg]Tonie Rosado MD Work Phone: [facility]05-29-2024 13:21-0400Body udpdwk410.6 cmPeterson Gonsalez MD Work Phone: [facility] ToledoKvsejg50-59-0662 09:59-0400Diastolic blood rpyimjzu94 mm[Hg]Marlene Cordero PA-C Work Phone: [facility] ToledoSieksv60-63-4041 09:59-0400Heart rate68 /min Marlene Cordero PA-C Work Phone: [facility] ToledoNkbqkn14-02-2006 09:59-1491EqY3% (BldA) [Mass fraction]99 %Marlene Cordero PA-C Work Phone: [facility] ToledoOmeltt61-48-1290 09:59-0400Systolic blood lxsgvxuu306 mm[Hg]Marlene Cordero PA-C Work Phone: c[facility] ToledoVulxdu46-57-3689 13:12-0400Body rtekwn613.64 cmUniversity [facility]04-17-2024 13:12-0400Body mass index (BMI) [Ratio]21.3 kg/a1BtpvsbfpyUniversity Hospitals [facility]04-17-2024 13:12-0400Body uulaqz22.87 kgUniversity Hospitals [facility]04-17-2024 13:12-0400Diastolic blood lyydiylv59 mm[Hg][facility]04-17-2024 13:12-0400 Heart rate86 /minUniversity Hospitals [facility] Center04-17-2024 13:12-0058DtI3% (BldA) [Mass fraction]98 %[facility]04-17-2024 13:12-0400 Systolic blood ddbyvvyq810 mm[Hg][facility]04-11-2024 11:22-0400Diastolic blood iholconx85 mm[Hg]Daniel Figueroa MD Work Phone: [phone]iXfjdal62-79-8797 11:22-0400Heart rate83 /Giovanna Figueroa MD Work Phone: [phone]7423TcogvArrcpx23-39-3110 11:22-1531MlY8% (BldA) [Mass fraction]100 %Daniel Figueroa MD Work Phone: [phone]fRomuli27-54-3836 11:22-0400Systolic blood gvjtiedl175 mm[Hg]Daniel Figueroa MD Work Phone: [phone]iWzwvgr70-84-5348 14:16-0400Body .64 cm [facility]04-02-2024 14:16-0400Body mass index (BMI) [Ratio]22.5 kg/b2ObavucvzcUniversity Hospitals [facility]point Medical Center04-02-2024 14:16-0400Body pxalyy48.27 kgUniversity [facility]als [facility]04-02-2024 14:16-0400Diastolic blood psmpytye79 mm[Hg][facility]04-02-2024 14:16-0400 Heart rate80 /[facility]04-02-2024 14:16-0400 Respiratory rate12 /[facility]04-02-2024 14:16-0400 Systolic blood xfagkygv656 mm[Hg][facility]03-29-2024 07:47-0400Diastolic blood xjoxwzrd87 mm[Hg]Carmel Roldan MD Other Phone: [facility] KPRFQS16-12-2569 07:47-0400Systolic blood hrwdfipk357 mm[Hg]Carmel Roldan MD Other Phone: [facility] DVCWPE01-10-7763 05:47-0400Body bnlminnlwxn38.4 [degF]Carmel Roldan MD Other Phone: [facility] IZMFYA11-64-6857 05:47-0400Heart rate 87 /minMatthew Jamar LOPEZ Other Phone: [facility] ELDKIL10-94-3396 05:47-0400 Respiratory rate18 /minMatthew Jamar LOPEZ Other Phone: [facility] KZLEIP19-07-5989 05:47-4583HgQ9% (BldA) [Mass fraction]100 %Carmel Roldan MD Other Phone: [facility] FFYEEJ22-14-0110 20:33-0400Body .6 cmMattedyta Roldan MD Other Phone: [facility] KJYGVV30-71-9053 20:33-0400Body mass index (BMI) [Ratio]25.73 kg/t4Fsdxptlhari Roldan MD Other Phone: [facility] VRHOIQ70-59-2202 20:33-0400Body htonhk62.3 kgMattedyta Roldan MD Other Phone: [facility] DQPDQS58-61-0834 11:30-0500Body octzeh410.64 cmBenjamin Ball Other [employer] Other 02-12-2024 11:30-0500Body mass index (BMI) [Ratio] 23.08 kg/f9Debizvyu Ball Other [employer] Other 02-12-2024 11:30-0500Body icvcdh94.86 kgBenjamin Ball Other [employer] Other 02-12-2024 11:30-0500Diastolic blood ohqhsony14 mm[Hg] Juliette Ball Other [facility] [employer] Other 02-12-2024 11:30-0500Respiratory rate12 /minBenjamin Ball Other [facility] [employer] Other 02-12-2024 11:30-0500Systolic blood mm[Hg] Juliette Ball Other [facility] [employer] Other 01-10-2024 11:00-0500Body uwgetz583.64 cmBenjamin Ball Other [facility]01-10-2024 11:00-0500 Body mass index (BMI) [Ratio]23.24 kg/r3Sogoanvr Ball Other [employer] Other 01-10-2024 11:00-0500Body elplxs96.32 kgBenjamin Ball Other [facility] [employer] Other 01-10-2024 11:00-0500Body .31 kgUniversity [facility]als [facility]01-10-2024 11:00-0500Diastolic blood pogfygfl72 mm[Hg] Juliette Ball Other [address] [place], [place] [address]01-10-2024 11:00-0500 Respiratory rate12 /minBenarnaldo Berumen Other [facility] [employer] Other 01-10-2024 11:00-0500Systolic blood pvirwnzt806 mm[Hg] Juliette Berumen Other [facility]12-04-2023 13:00-0500 Body blmmqskfoib23.01 [degF]Jamie Mccarty MD Work Phone: [facility] ToledoPsseaf11-16-5556 13:00-0500Body ztoccn76.6 kgJamie Mccarty MD Work Phone: [facility] ToledoOlfhzc51-36-6484 13:00-0500Diastolic blood kpjibbxu08 mm[Hg]Jamie Mccarty MD Work Phone: [facility] ToledoRkxbeu56-06-0482 13:00-0500Heart rate69 /min Jamie Mccarty MD Work Phone: [facility] ToledoBihwxo04-73-1109 13:00-0500Respiratory rate 18 /minJamie Mccarty MD Work Phone: [facility] ToledoFrftni97-11-4271 13:00-9389IcN7% (BldA) [Mass fraction]98 %Jamie Mccarty MD Work Phone: [facility] ToledoXgucii14-21-3830 13:00-0500Systolic blood ruqgvrgf519 mm[Hg]Jamie Mccarty MD Work Phone: [facility] ToledoVzjudp20-19-4405 10:45-0500Body azgcaq167.64 cmJekaykay Gutiérrezrbacher Other [place] [employer] Other 11-17-2023 10:45-0500Body mass index (BMI) [Ratio]23.4 kg/e4Lhztsupe Rohrbacher Other [facility] [employer] Other 11-17-2023 10:45-0500Body lvvdqsxibec99.5 [degF] Shelbi Rittertammi Other [employer] Other 11-17-2023 10:45-0500Body dqingm83.77 kgShelbi Saabrandy Other [employer] Other 11-17-2023 10:45-0500Diastolic blood nnsqjgui28 mm[Hg] Shelbi Gutiérrezmarcia Other [employer] Other 11-17-2023 10:45-9814StS2% (BldA) [Mass fraction]98 % Shelbi Saabrandy Other [employer] Other 11-17-2023 10:45-0500Systolic blood egvdjdzc329 mm[Hg] Shelbi Rittertammi Other [employer] Other 10-05-2023 10:30-0400Body cjpbip957.64 cmBenjamin Ball Other [employer] Other 10-05-2023 10:30-0400Body mass index (BMI) [Ratio] 22.17 kg/a7Udlrgeqe Ball Other [employer] Other 10-05-2023 10:30-0400Body pmyzgf65.32 kgBenjamin Ball Other [employer] Other 10-05-2023 10:30-0400Diastolic blood ljeibmjd69 mm[Hg] Juliette Ball Other [employer] Other 10-05-2023 10:30-0400Respiratory rate12 /minBenjamin Ball Other [facility] [employer] Other 10-05-2023 10:30-0400Systolic blood lmisgadz892 mm[Hg] Juliette Berumen Other [place] [employer] Other 10-02-2023 13:00-0400Body llqbfnrjimi64.01 [degF] Jamie Mccarty MD Work Phone: [phone] Hospital ToledoAascaw22-41-9471 13:00-0400Body .78 kgJamie Mccarty MD Work Phone: [phone] Hospital ToledoRqnsvc57-01-3913 13:00-0400Diastolic blood hwytbvpr08 mm[Hg]Jamie Mccarty MD Work Phone: [phone] Hospital ToledoEjupmo85-11-1888 13:00-0400Heart rate69 /min Jamie Mccarty MD Work Phone: [phone] Hospital ToledoBnaykv27-28-1367 13:00-0400Respiratory rate 18 /minJamie Mccarty MD Work Phone: [phone] Hospital ToledoCpihai52-50-9067 13:00-9396PpY9% (BldA) [Mass fraction]98 %Jamie Mccarty MD Work Phone: [phone] Hospital ToledoAelfcg04-75-0779 13:00-0400Systolic blood pxqosxgn349 mm[Hg]Jamie Mccarty MD Work Phone: [phone] Hospital ToledoZeshia06-35-1685 10:12-0400Body temperature 97.9 [degF]Peterson Gonsalez MD Work Phone: [phone] Qyhnyk86-41-4918 10:12-0400Body wyysag20.15 kgPeterson Gonsalez MD Work Phone: [phone] Valley Health SystemElrylc97-21-7889 10:12-0400Diastolic blood bsxvihhm51 mm[Hg]Peterson Gonsalez MD Work Phone: [phone] memorial hospitaland Cbdutc88-95-6471 10:12-0400Heart rate71 /min Peterson Gonsalez MD Work Phone: [phone] Hospital ToledoBvhwzm36-18-5679 10:12-0400Systolic blood rgvzijvt089 mm[Hg]Peterson Gonsalez MD Work Phone: [phone]-hyde memorial hospitaland Jidpts50-19-0583 13:40-0400Diastolic blood vbzthdoh24 mm[Hg]Marlene Schwieterman PA-C Work Phone: [phone] Hospital ToledoAxaqlj42-83-0903 13:40-0400Heart rate72 /min Marlene Schwieterman PA-C Work Phone: [phone] hospitaland Zlcqct46-06-0924 13:40-3258BmC1% (BldA) [Mass fraction]98 %Marlene Schwieterman PA-C Work Phone: [phone] Hospital ToledoUjizvz66-10-6889 13:40-0400Systolic blood mm[Hg]Marlene Schwieterman PA-C Work Phone: [phone] Hospital ToledoVpcvdz88-03-1173 10:09-0400Body temperature 98.1 [degF]Jamie Mccarty MD Work Phone: [phone] Hospital ToledoYybagf20-05-0200 10:09-0400Body lymubp97.25 kgJamie Mccarty MD Work Phone: [phone] Hospital ToledoGijroc13-72-1001 10:090400Diastolic blood ignmuocx21 mm[Hg]Jamie Mccarty MD Work Phone: [phone] Hospital ToledoYdpour87-98-1798 10:09-0400Heart rate79 /min Jamie Mccarty MD Work Phone: [phone] Hospital ToledoEwasjj42-58-9592 10:09-0400Respiratory rate 18 /minJamie Mccarty MD Work Phone: [phone] Hospital ToledoXrfbbw95-23-4010 10:09-8461NiC3% (BldA) [Mass fraction]96 %Jamie Mccarty MD Work Phone: [phone] Hospital ToledoVtbszl82-07-3244 10:09-0400Systolic blood mm[Hg]Jamie Mccarty MD Work Phone: cReg[facility] ToledoHjomoc99-94-0888 13:43-0400Body enehek726.64 cmDO Juliette Ball Work Phone: [facility]06-15-2023 13:43-0400 Body mass index (BMI) [Ratio]17.1 kg/m2DO Juliette Ball Work Phone: [phone]06-15-2023 13:43-0400 Body xyipan03.08 kgDO Juliette Ball Work Phone: [phone]06-15-2023 13:35-0400 Body aswamxsdwff29.9 [degF]DO Juliette Ball Work Phone: [phone]06-15-2023 13:35-0400 Diastolic blood uxmscsdr50 mm[Hg]DO Juliette Ball Work Phone: [phone]06-15-2023 13:35-0400 Heart rate76 /minDO Juliette Ball Work Phone: [phone]06-15-2023 13:35-0400 Respiratory rate18 /minDO Juliette Ball Work Phone: [phone]06-15-2023 13:35-0400 Systolic blood fqukjpsw397 mm[Hg]DO Juliette Ball Work Phone: [phone]06-13-2023 11:45-0400 Body gomofr085.64 cmKalli Simons Other [place] [employer] Other 06-13-2023 11:45-0400Body mass index (BMI) [Ratio]4.68 kg/t2StojohKalli Simons Other [place] [employer] Other 06-13-2023 11:45-0400Body pdgdoh89.15 kgKalli Simons Other [place] [employer] Other 06-13-2023 11:45-0400Diastolic blood mnqfhges28 mm[Hg] Kalli Ronak Other [facility] [employer] Other 06-13-2023 11:45-0400Systolic blood tmxzofte636 mm[Hg] Kalli Ronak Other [place] [employer] Other 06-08-2023 10:09-0400Body aeroll161.6 cmCaleb Schwieterman PA-C Work Phone: [phone] hospitaland Abzqyu58-54-7614 10:09-0400Body jmwekv07.25 kgCaleb Schwieterman PA-C Work Phone: [phone] memorial hospitaland Bunkec97-95-0938 10:09-0400Diastolic blood hvgxleok14 mm[Hg]Marlene Schwieterman PA-C Work Phone: [phone]-hyde memorial hospitaland Lvgdrt70-71-9974 10:09-0400Heart rate77 /min Marlene Schwieterman PA-C Work Phone: [phone]-hyde memorial hospitaland Gfhdgf74-83-5559 10:09-0759IqR5% (BldA) [Mass fraction]99 %Marlene Schwieterman PA-C Work Phone: [phone]-hyde memorial hospitaland Hjykam62-69-5663 10:09-0400Systolic blood yrvkcmkd565 mm[Hg]Marlene Schwieterman PA-C Work Phone: [phone]-hyde memorial hospitaland Tzqesw89-66-5050 10:30-0400Body yhufqu673.64 cmBenjamin Ball Other [facility] [employer] Other 06-02-2023 10:30-0400Body mass index (BMI) [Ratio] 20.11 kg/l8Mwathalh Ball Other [facility] [employer] Other 06-02-2023 10:30-0400Body ehtppw96.52 kgBenjamin Ball Other [employer] Other 06-02-2023 10:30-0400Diastolic blood rgocegqq17 mm[Hg] Juliette Ball Other [employer] Other 06-02-2023 10:30-0400Respiratory rate12 /minBenjamin Ball Other [employer] Other 06-02-2023 10:30-0400Systolic blood pjntnyol659 mm[Hg] Juliette Ball Other [employer] Other 05-12-2023 09:07-0400Diastolic blood tmtplavt77 mm[Hg] Marlene Schwieterman PA-C Work Phone: cReg[facility] ToledoQcuqjr96-50-5293 09:07-0400Heart rate86 /min Marlene Schwieterman PA-C Work Phone: c[facility] ToledoJnddsa27-02-2626 09:07-0710KqC4% (BldA) [Mass fraction]96 %Marlene Schwieterman PA-C Work Phone: cReg[facility] ToledoHvkede45-11-9480 09:07-0400Systolic blood dmqobmom937 mm[Hg]Marlene Schwieterman PA-C Work Phone: cReg[facility] ToledoFmahot67-22-4775 11:30-0400Body huwjpi379.64 cmBenjamin Ball Other [employer] Other 04-28-2023 11:30-0400Body mass index (BMI) [Ratio] 18.53 kg/b0Ssbpyzyr Ball Other [employer] Other 04-28-2023 11:30-0400Body rcxaif35.07 kgBenjamin Ball Other [employer] Other 04-28-2023 11:30-0400Diastolic blood psxryxzi87 mm[Hg] Juliette Berumen Other [place] [employer] Other 04-28-2023 11:30-0400Respiratory rate12 /evensBenarnaldo Berumen Other [place] [employer] Other 04-28-2023 11:30-0400Systolic blood vedlkjvl911 mm[Hg] Juliette Berumen Other [place] [employer] Other 01-17-2023 13:36-0500Body ktobkx32.17 kgPeterson Gonsalez MD Work Phone: c[facility] ToledoYfnuly70-07-5229 13:36-0500Diastolic blood mm[Hg]Peterson Gonsalez MD Work Phone: cReg[facility] ToledoDlaxhs04-71-6552 13:36-0500Heart hmuu538 /Sirisha Gonsalez MD Work Phone: c[facility] ToledoQlsvxw78-08-9765 13:36-0500Respiratory rate 15 /Sirisha Gonsalez MD Work Phone: c[facility] ToledoPserje49-78-1666 13:36-0500Systolic blood sbqffitx445 mm[Hg]Peterson Gonsalez MD Work Phone: c[facility] ToledoQkbrha16-02-9901 13:08-0500Body quvwuh786.6 Yeny Montez MD Work Phone: [place] [address]-28-2022 13:08-0500Body temperature 96.91 [degF]Dion Montez MD Work Phone: [place] [address]-28-2022 13:08-0500Body .43 kgDion Montez MD Work Phone: [place] [address]-28-2022 13:08-0500Diastolic blood ygvwxppv45 mm[Hg]Dion Montez MD Work Phone: [facility]11-28-2022 13:08-0500Heart yebd470 /Patricia Montez MD Work Phone: [facility]11-28-2022 13:08-6061YbR0% (BldA) [Mass fraction]100 %Dion Montez MD Work Phone: [facility]11-28-2022 13:08-0500Systolic blood oykidgvv158 mm[Hg]Dion Montez MD Work Phone: [facility]10-17-2022 09:35-0400Body temperature 97.9 [degF]Peterson Gonsalez MD Work Phone: c[facility] ToledoLjejve39-99-5078 09:35-0400Body .43 kgPeterson Gonsalez MD Work Phone: [phone] Hospital ToledoQkdhio47-26-9394 09:35-0400Diastolic blood xaywuhvw11 mm[Hg]Peterson Gonsalez MD Work Phone: [phone] Hospital ToledoKcykxn66-62-6331 09:35-0400Heart igwu832 /Sirisha Gonsalez MD Work Phone: [phone] Hospital ToledoJhfwbc40-71-7451 09:35-0400Respiratory rate 14 /Sirisha Gonsalez MD Work Phone: [phone] Hospital ToledoSbdrwa58-72-8968 09:35-0400Systolic blood ymbtizel741 mm[Hg]Peterson Gonsalez MD Work Phone: [phone] Hospital ToledoDqohcr38-20-6864 23:00-0400Diastolic blood krfomyjh17 mm[Hg]DO Juliette Berumen Work Phone: [facility]09-25-2022 23:00-0400 Heart rate98 /Anna Berumen Work Phone: [facility]09-25-2022 23:00-0400 Respiratory rate20 /Anna Berumen Work Phone: [facility]09-25-2022 23:00-0400 SaO2% (BldA) [Mass fraction]95 %DO Unfold Work Phone: [facility]09-25-2022 23:00-0400 Systolic blood ybebsemh974 mm[Hg]DO Unfold Work Phone: [facility]09-25-2022 20:00-0400 Body acwuthepvdo79.9 [degF]DO Unfold Work Phone: [facility]09-25-2022 12:50-0400 Body huitjy746.64 cmDO Unfold Work Phone: [facility]09-25-2022 12:50-0400 Body xncito25.7 kgDO Unfold Work Phone: [facility]07-12-2022 15:05-0400 Body ugxrzs656.64 cmCaitlin Omoregie PA-C Work Phone: [phone]-Xdpwtbyreuunp-[facility] [place] [address] Work Phone: [phone] 15:05-0400Body mass index (BMI) [Ratio]22.6 kg/o4Bvuojte Omoregie PA-C Work Phone: [phone]-Elfgqadhaljgf-[facility] [place] [address] Work Phone: [phone] 15:05-0400Body surface area Derived from formula1.72 p6Glyviab Omoregie PA-C Work Phone: [phone]-Jnegvfrsewlzh-[facility] [place] [address] Work Phone: [phone] 15:05-0400Body qonihs62.5 kgCaitlin Omoregie PA-C Work Phone: [phone]-Yxobzhtxhofvb-[facility] [place] [address] Work Phone: [phone] 15:05-0400Diastolic blood pajeylyp05 mm[Hg] Nayely Omoregie PA-C Work Phone: [phone]-Efhdnpglsobfr-[facility] [place] [address] Work Phone: [phone] 15:05-0400Heart rate72 /minCaitlin Omoregie PA-C Work Phone: [phone]-Smrykyavogzsl-[facility] [place] [address] Work Phone: [phone] 15:05-8609CaH4% (BldA) [Mass fraction]98 % Nayely Omoregie PA-C Work Phone: [phone]-Ncumvynoplzue-[facility] [address] Work Phone: [phone] 15:05-0400Systolic blood djpgudov048 mm[Hg] Nayely Omoregie PA-C Work Phone: [phone]-Mhfatwcfqlacb-[facility] [place] [address] Work Phone: [phone] 15:05-83768 1Caitlin Omoregie PA-C Work Phone: [phone]-SioktghflnkebD[facility] [place] [address] Work Phone: [phone] on above:VbtgScuoy27-79-6497 14:03-0400Body ualohrybdab79.39 [degF]Peterson Gonsalez MD Work Phone: [phone] Amrodc18-84-7558 14:03-0400Body jfclom27.69 kgPeterson Gonsalez MD Work Phone: [phone] Nbcsyx53-50-9389 14:03-0400Diastolic blood pzkjaalx37 mm[Hg]Peterson Gonsalez MD Work Phone: [phone] Orumun02-56-8137 14:03-0400Heart rate94 /min Peterson Gonsalez MD Work Phone: [phone] Pznyfk68-60-0560 14:03-0400Respiratory rate 15 /minPeterson Gonsalez MD Work Phone: [phone] Ulrfvb55-98-5075 14:03-0400Systolic blood txwwunps799 mm[Hg]Peterson Gonsalez MD Work Phone: [phone] [place], [place] 4142506-08-2022 15:30-0400Diastolic blood qwejnbly26 mm[Hg]Myrna Mendez MD Work Phone: [facility] [facility]06-08-2022 15:30-0400Heart rate96 /min Myrna Mendez MD Work Phone: [facility]06-08-2022 15:30-0400Respiratory rate 22 /minMyrna Mendez MD Work Phone: [facility]06-08-2022 15:30-3446YiJ8% (BldA) [Mass fraction]100 %Myrna Mendez MD Work Phone: [facility]06-08-2022 15:30-0400Systolic blood mm[Hg]Myrna Mendez MD Work Phone: [facility]06-08-2022 14:04-0400Body .6 cmMyrna Mendez MD Work Phone: [facility]06-08-2022 14:04-0400Body odckqd38.04 kgMyrna Mendez MD Work Phone: [facility]05-10-2022 10:36-0400Body dxvtdy19.04 kgBryn Reyna BACK UP SCAN COORDINATOR.SUPERVISOR NET MAKING Work Phone: [facility]05-10-2022 10:36-0400Diastolic blood wfaxbryv96 mm[Hg]Jose Reyna BACK UP SCAN COORDINATOR.SUPERVISOR NET MAKING Work Phone: [facility]05-10-2022 10:36-0400Heart bbvj914 /minBryn Reyna BACK UP SCAN COORDINATOR.SUPERVISOR NET MAKING Work Phone: [facility]05-10-2022 10:36-0400Systolic blood ixfeipsa709 mm[Hg]Jose Reyna BACK UP SCAN COORDINATOR.SUPERVISOR NET MAKING Work Phone: [facility]03-08-2022 15:33-0500Body rrbiwf170.64 Tomasz Villasenor PA-C Work Phone: [phone]-Louklxjxqjabf-[facility] [address] [address] Work Phone: [phone] 15:33-0500Body mass index (BMI) [Ratio] 26.32 kg/i4Xmlcspl Omoregie PA-C Work Phone: [phone]-Ybhfuzuphhqhb-[facility] [place] [address] Work Phone: [phone] 15:33-0500Body surface area Derived from formula1.83 g8Wbokwfw Omoregie PA-C Work Phone: [phone]-Zeqglfavcjdnd-[facility] [address] Work Phone: [phone] 15:33-0500Body yganic42.96 kgCaitlin Omoregie PA-C Work Phone: [phone]-Wqjykajnlwykq-[facility] [place] [address] Work Phone: [phone] 15:33-0500Diastolic blood kgauowgi12 mm[Hg] Nayely Omoregie PA-C Work Phone: [phone]-Ulqftgffplpdo-[facility] [address] Work Phone: [phone] 15:33-0500Heart rate94 /minCaitlin Omoregie PA-C Work Phone: [phone]-Kwltstuhyurcj-[facility] [place] [address] Work Phone: [phone] 15:33-1716ClW3% (BldA) [Mass fraction]100 % Nayely Omoregie PA-C Work Phone: [phone]-Hdeusezsqfoxt-[facility] [place] [address] Work Phone: [phone] 15:33-0500Systolic blood mygomkbb569 mm[Hg] Nayely Omoregie PA-C Work Phone: [phone]-Hblmfjmrvnshs-[facility] [address] Work Phone: [phone]21 15:26-0400Body mass index (BMI) [Ratio] 30.86 kg/q0Iksguyl Omoregie PA-C Work Phone: [phone]-Evgrqmfydz-[place] [address] Work Phone: [phone] 15:26-0400Body surface area Derived from formula1.96 v3Gzmbeoz Omoregie PA-C Work Phone: [phone]-Ifsuubccvi-[place] [address] Work Phone: [phone] 15:26-0400Body izjgip31.72 kgCaitlin Omoregie PA-C Work Phone: [phone]-Edewphgeor-[place] [address] Work Phone: [phone] 15:26-0400Diastolic blood pdvyznxf29 mm[Hg] Nayely Omoregie PA-C Work Phone: [phone]-Wvpjvpehep-[place] [address] Work Phone: [phone] 15:26-0400Heart rate70 /minCaitlin Omoregie PA-C Work Phone: [phone]-Jdzcygjftm-[place] [address] Work Phone: [phone] 15:26-0123FjE2% (BldA) [Mass fraction]98 % Nayely Omoregie PA-C Work Phone: [phone]-Diqurkxwap-[place] [address] Work Phone: [phone] 15:26-0400Systolic blood fbypvbea718 mm[Hg] Nayely Omoregie PA-C Work Phone: [phone]-Ekxauppvjs-[place] [address] Work Phone: [phone] 17:26-0500BMI (Body Mass Index)30.39 kg/m2 Nayely PvftwuueQS-Thryzaustoktz-Aaxyyht [facility] Work Phone: 1([phone] 424-705111-05-2019 17:26-0500Body rbfbty44.42 kgCaitlin XoqwxhdaQS-Ngebbesuqodpb-Bqltdmv [facility] Work Phone: [phone] 17:26-0500BP Opybgjjqm23 mm[Hg]Nayely TrojivubLB-Ofgavsakuepse-Xzqrgfx [facility] Work Phone: comment on above:Location: LUE; Position: Sitting 02-18-2019 17:26-0500BP Woumfrzx198 mm[Hg]Nayely Omoregie NO-Kbaqhzmjfrlxs-Zzqduku [facility] Work Phone: comxmcq on above:Location: LUE; Position: Sitting 02-18-2019 17:26-0500BSA (Body Surface Area)1.95 a4Emcemyv Omoregie IE-Jmxuzbuxbxhyo-[facility]spzbvn[facility] Work Phone: [phone] 17:26-3243Lkkiej753.64 cmCaitlin oregie WS-Rfmisulwwonnh-Arqgqol [facility] Work Phone: [phone] 17:26-0500Pulse (Heart Rate)68 /minAzitlin XcfddwlyIU-Lvxvrbegwulto-Pmylyyq [facility] Work Phone: [phone] 17:26-0500Pulse Hgupcymq995 %Nayely KlfwelooNQ-Bfdlqfmesucao-Rwejgfo [facility] Work Phone: [phone] 17:26-0500Respiratory Rate16 /minCaitlin HvtbmtbdBX-Kgfcikexfwqlf-Pifvnky [facility] Work Phone: Encounters Encounter DateEncounter TypeCare ProviderFacilityStart: 02-17-2025 End: 06-45-4852udkxbqijubEJIUMCTV SEYBERTFacility:[facility]Start: 02-12-2025 End: 92-53-9062jkjmnefwfuKPNJG ANIBAL BARKSDALEFacility:[facility]art: 01-09-2025 End: 13-68-8620irxkubmsynATJNZV E BRAUNFacility:[facility]: 12-31-2024 End: 69-60-9161lpdzaftjdlRoxmgbis Ball DO Work Phone: [facility] Work Phone: Start: 12-31-2024 End: 38-00-3468Czcgbfdyox KyleSharan Brannon Galicia BACK UP SCAN COORDINATOR-Wound [facility] [place] Work Phone: Start: 12-26-2024 End: 01-95-7821bnjwxibcrdLgpjlxyu Ball DO Work Phone: [facility] Work Phone: Start: 12-26-2024 End: 55-26-4980Vutvupn encounter procedureBenmartaevens Berumen DO-[facility] Work Phone: Start: 12-23-2024 End: 46-63-6307Elvxogh encounter procedureAstrid Nava MD Work Phone: OphthalmologyComment [...] macular edema, right eye (HCC)Start: 12-23-2024 End: 24-56-5785ytfjyeziyfJBWCS A MORLEYFacility:[facility] HospitalStart: 12-12-2024 End: 21-82-9461Nqltrs Silvia Mccarty MD Work Phone: [facility] HOSPComment on above:Medication Authorization (Cresemba)Start: 12-11-2024 End: 79-40-2847Hjdcxdbiz encounterSrob Carranza PA-C Work Phone: [facility] CenterStart: 12-11-2024 End: 09-99-7113Iriuume encounter Bart Morejon MD Work Phone: Orthopaedics ElmaComment on above:Closed fracture of distal end of left femur, unspecified fracture morphology, initial encounter (HCC) (Primary Dx)Start: 12-11-2024 End: 36-65-2370skpjbgohpdOBUSBWBernice MOREJONFacility:[facility] HospitalStart: 12-11-2024 End: 81-77-5502Sngnlskuwy hospital visit by physicianXr [facility] Work Phone: RadiologyComment on above:Tibia/fibula fracture, left, closed, initial encounter [S82.202A, S82.402A]Start: 45-39-9118Zwhxtvmiri KyleSharan Brannon Galicia BACK UP SCAN COORDINATOR-Wound Care [place] Work Phone: Start: 12-08-2024 End: 05-66-7465Vplrlqsxttxe consultation with patientNoel Daniels MD Work Phone: PHYSICAL MEDICINE & REHABStart: 12-08-2024 End: 66-32-1039qwysbhqaaaZmghu Joshi MD Work Phone: PHYSICAL MEDICINE & REHABComment on above:Chronic incomplete spastic paraplegia (HCC) (Primary Dx); Spasm of muscle; Impaired mobility and activities of daily livingStart: 11-29-2024 End: 36-18-3699qqqgxhrufzVqguwmph Samuel PA-C Work Phone: [facility] InstituteStart: 11-29-2024 End: 98-10-0469Lqarxx-up encounterBianca Little PA-C Work Phone: Spine InstituteComment on above:R/T follow upStart: 11-28-2024 End: 35-10-7107Pzmfobiew encounterRuddy Gupta MD Work Phone: Endocrinology & Metabolic InstituteComment on above: Electronic Communication; Patient QuestionStart: 11-19-2024 End: 21-85-7416vsapbacpftGzphmsoj Ball DO Work Phone: [facility] Work Phone: Start: 11-19-2024 End: 57-08-5746Iscjejz encounter procedureBenjamin Ball DO-[facility] Work Phone: Start: 11-04-2024 End: 78-30-3434zzbneqbnwfSaypuloi Samuel PA-C Work Phone: [facility] InstituteComment on above:R/T My VisitStart: 10-22-2024 End: 68-94-1824kbziebmlewKFXXAL E BRAUNFacility:[facility]: 10-22-2024 End: 59-78-2407Asdzkte encounter procedureBianca Little PA-C Work Phone: [facility] InstituteComment on above:Cervical stenosis of spinal canal (Primary Dx); Degeneration of cervical intervertebral disc; Communicating hydrocephalus (HCC)Start: 10-22-2024 End: 86-33-6077emxwiseditCNDTUE E BRAUNFacility:[facility]: 10-15-2024 End: 01-87-7483Gefpjhzwvmdj consultation with Kim Gonsalez MD Work Phone: UrologyStart: 10-15-2024 End: 59-32-2110yjdrxammvxUusl Almassi MD Work Phone: UrologyComment on above:History of bladder cancer (Primary Dx); Hydronephrosis, unspecified hydronephrosis type; Pulmonary noduleStart: 10-09-2024 End: 17-42-3280Cediixn encounter procedureMarlene Cordero PA-C Work Phone: Neurological RestorationComment on above:Cervical stenosis of spinal canal (Primary Dx); Other hydrocephalus (HCC)Start: 10-09-2024 End: 58-50-8681epcmrspttcORWMOS E BRAUNFacility:[facility]: 05-25-8962Oss-patient / Non-visitNicole E Dennison ROUGH PLANER TENDER-C-[facility] Work Phone: Start: 93-10-1152tlvnbprrelUEMUAY MADHAVI Facility:[facility]: 10-02-2024 End: 61-20-0178Gpbetxthlc hospital visit by physicianArrival Time Radiology Work Phone: Radiology Pet CTComment on above:History of bladder cancer [Z85.51]Start: 09-26-2024 End: 79-07-6206Zvdhgxqry encounterClare Pedraza ROUGH PLANER TENDER Work Phone: NOMS CI FMStart: 09-12-2024 End: 95-70-6051Jffsep OnlyMolly Hendrickson APRN.SUPERVISOR NET MAKING Work Phone: UrologyComment on above:Malignant neoplasm of urinary bladder, unspecified site (HCC) (Primary Dx)Radiology CTStart: 09-11-2024 End: 00-80-0931Bdrjdwf evaluation of patient and reportSClaudia Spencer RN Work Phone: Orthopaedics ClevelandComment on above:Closed fracture of distal end of left femur, unspecified fracture morphology, initial encounter (HCC) (Primary Dx)Start: 09-11-2024 End: 18-16-1469vymwwoughqJFEIZP E BRAUNFacility:[facility] Hospitaltart: 09-11-2024 End: 08-57-8319Ixsdgpxvwl hospital visit by physicianXr Orth[facility] Work Phone: RadiologyComment on above:Tibia/fibula fracture, left, closed, initial encounter [S82.202A, S82.402A]Start: 08-28-2024 End: 57-63-2556Planaxihwy and management of inpatientHEATHER Lutheran Medical Centertart: 86-50-3334Snl-patient / Non-visitOutside Provider- [facility] Work Phone: Start: 08-27-2024 End: 45-85-8404Mzwkpk Rafael Morejon MD Work Phone: Orthopaedics ClevelandComment on above:Tibia/fibula fracture, left, closed, initial encounter (Primary Dx)Start: 65-90-0704Hrl- patient / Non-visitVeronica Rodriguez MD-[facility] Work Phone: Start: 19-18-4454Hmk-patient / Non-visitOutside Provider-[facility] Work Phone: Start: 08-25-2024 End: 73-62-7725Dbwouzesl encounterJennifer Morton APRN.CNS Work Phone: [facility] BL8VCmtedmf on above:Appointment (Patient still in the hospital, scheduled Hip Fracture Liaison Consult Appointment with on 10/09 at 12:00PM. Sent My chart message and mailed out reminder)Start: 14-92-1576Wwn-patient / Non-visitOutside Provider-[facility] Work Phone: Start: 08-47-9914Zvx-patient / Non-visitOutside Provider-[facility] Work Phone: Start: 15-66-6977Zxo-patient / Non-visitOutside Provider-[facility] Work Phone: Start: 08-22-2024 End: 28-23-4692Jqpzmzvogr and management of inpatientMELHECTOR HUYNH [facility]: 08-22-2024 End: 82-86-2400Slmrvrkqy encounterPhil Thomas MD Work Phone: Provider AdultComment on above:Hospital To Hospital Start: 88-71-5544Nxj-patient / Non-visitMelissa Shey Huynh DO-[facility] Work Phone: Start: 08-21-2024 End: 16-78-7853Rliphmurr encounterRuddy Gputa MD Work Phone: EndocrinologyComment on above:Patient Update (Garcia) Start: 08-20-2024 End: 63-07-1115oveorlkzftXreiinwn BallFacility:[facility] Start: 08-11-2024 End: 63-38-8327dzqtalslndGjtto Joshi MD Work Phone: [facility] FHCComment on above: Baclofen scriptNoxafilStart: 08-05-2024 End: 40-43-2747gdyqthbftaNhpzhphc Ball DO Work Phone: [facility] Work Phone: Start: 08-05-2024 End: 39-51-7822Gfnaeeo encounter procedureBenjamin Ball DO Work Phone: [facility] Work Phone: Start: 08-01-2024 End: 43-18-7424Irdpvwl encounter procedureCaleleslie Cordero PA-C Work Phone: Neurological RestorationComment on above:Other hydrocephalus (HCC) (Primary Dx)Start: 08-01-2024 End: 03-08-2618txcghpvngnPRVKX SCHWIETERMANFacility:[facility] Start: 57-63-1790bsrfwnxsadIEUPK SCHWOUR LADY OF MERCY HOSPITALERMANFacility:[facility] Start: 07-31-2024 End: 40-45-8172Uwddxgdxxs hospital visit by physicianArrival Time Radiology Work Phone: Radiology Pet CTComment on above:Other hydrocephalus (HCC) [G91.8]Start: 79-12-6666Tzmwytnhla RecurringBenjamin Ball DO Work Phone: [facility]ound [facility] [place] Work Phone: Start: 26-76-3438Dql-patient / Non-visitBenjamin Ball DO Work Phone: [facility] Work Phone: Start: 07-28-2024 End: 79-60-2783xfrlkeuriaQungydpa Ball DO Work Phone: [facility] Work Phone: Start: 07-28-2024 End: 93-47-3173Yntjzawm ReferredBenjamin Ball DO Work Phone: [facility]-LAB Path Spec [place] HospStart: 53-97-0751Vkp-patient / Non-visitBenjamin Ball DO Work Phone: [facility] Work Phone: Start: 07-27-2024 End: 17-04-8942pesdcbcjamXpuqk Consuelo PA-C Work Phone: Neurological RestorationComment on above:ShuntStart: 39-01-5727Qjbaiikzax RecurringBenjamin Ball DO Work Phone: [facility]-Wound [facility] [place] Work Phone: Start: 07-22-2024 End: 08-68-5308tfbwnwtytiXJTEYK Carmine SIMONSFacility:[facility] HospitalStart: 07-22-2024 End: 91-18-3655Uftaayz encounter procedureNoel Daniels MD Work Phone: [facility] FHCComment on above: Chronic incomplete spastic paraplegia (HCC) (Primary Dx); Spasm of muscle; Myelitis (HCC); Impaired mobility and activities of daily livingStart: 07-17-2024 End: 48-09-9448heybuaesggUPCCZG E BRAUNFacility:[facility] HospitalStart: 07-17-2024 End: 33-34-4230Amiblvg encounter procedureCaleb Consuelo PA-C Work Phone: Neurological RestorationComment on above:Other hydrocephalus (HCC) (Primary Dx)Start: 07-03-2024 End: 68-52-6640Vuxzglfnp encounterCaleb Consuelo PA-C Work Phone: Neurological RestorationStart: 07-03-2024 End: 17-24-2123Jshmuxr encounter procedureBenjamin Ball DO Work Phone: [facility]-CT Scan [place] Work Phone: Start: 07-03-2024 End: 35-64-4476haycofxzomSgotaqxo Ball DO Work Phone: [facility] Work Phone: Start: 61-45-3299Yxtmwemppq RecurringBenjamin Ball DO Work Phone: [facility]-Wound Care [place] Work Phone: Start: 62-42-3784Pzs-patient / Non-visitBenarnaldo Berumen DO Work Phone: [facility] Work Phone: Start: 07-02-2024 End: 37-51-3778hakgxijfmdAKVEZP ISADAFacility:[facility]: 07-02-2024 End: 83-57-7455gzquknwtfsTWACYU ISADAFacility:[facility]: 07-01-2024 End: 24-49-6463iwqotqdhkzVEBRB CONSUELOFacility:[facility] Start: 07-01-2024 End: 17-32-7368Eiqbzggard hospital visit by physicianArrival Time Radiology Work Phone: Radiology Pet CTComment on above:Other hydrocephalus (HCC) [G91.8]Start: 06-20-2024 End: 98-49-3851ahaujqupsxIvnnewqn Ball DO Work Phone: [facility] Work Phone: Start: 06-20-2024 End: 13-62-4670Sxtszim encounter procedureBenjamin Ball DO Work Phone: [facility] Work Phone: Start: 24-72-7336Lqqspyghyi RecurringBenjamin Ball DO Work Phone: [facility]-Wound Care [place] Work Phone: Start: 06-18-2024 End: 18-16-4087ekcjrcijqaCnkzmJered Cordero PA-C Work Phone: Neurological RestorationComment on above:ShuntStart: 06-10-2024 End: 15-02-3313cnryucahkbPtutubhv Ball DO Work Phone: [facility] Work Phone: Start: 06-10-2024 End: 51-07-1547Jejnkwj encounter procedureBenjamin Ball DO Work Phone: [facility] GroupCarolinaeast [facility] Work Phone: Start: 09-55-7028Yradoywcip RecurringBenjamin Ball DO Work Phone: [facility]ound [facility] [place] Work Phone: Start: 05-27-2024 End: 08-55-3502Zkmdluw encounter procedureBenjamin Ball DO Work Phone: [facility]-Ultrasound Main [place] Work Phone: Start: 05-27-2024 End: 50-46-0828whoffjgzwuRovgbrhn Ball DO Work Phone: [facility] Work Phone: Start: 05-26-2024 End: 43-85-5228yztoqpigcdNadlz Consuelo PA-C Work Phone: Neurological RestorationComment on above:ShuntStart: 05-22-2024 End: 94-89-2787xttizafyjuBzlwvtso Ball DO Work Phone: [facility] Work Phone: Start: 05-22-2024 End: 78-55-4348Qctajve encounter procedureBenjamin Ball DO Work Phone: [facility] Work Phone: Start: 04-76-8229Woaihnpwom RecurringBenjamin Ball DO Work Phone: [facility]-Wound [facility] [place] Work Phone: Start: 05-09-2024 End: 13-85-3660vfeppeysitNurrg Schwdebierman PA-C Work Phone: Neurological RestorationComment on above:Shunt questionStart: 04-29-2024 End: 89-65-4573pmqehzayozTjvmkavysMer[facility] Work Phone: Start: 04-29-2024 End: 49-90-6612Uzypbpl encounter procedureToni Physician Group-[facility] Work Phone: Start: 04-22-2024 End: 58-36-8758vngctmplokRREXNZ E BRAUNFacility:[facility]: 04-22-2024 End: 71-93-7965Qoubeua encounter procedureNoel Daniels MD Work Phone: [facility] FHCComment on above: Chronic incomplete spastic paraplegia (HCC) (Primary Dx); Spasm of muscle; Myelitis (HCC); Impaired mobility and activities of daily livingStart: 04-15-2024 End: 72-25-4537nithczrcphKARHSN E BRAUNFacility:[facility]: 04-15-2024 End: 98-45-7402Whgtxyq encounter procedureNoel Daniels MD Work Phone: [facility] FHCComment on above: Chronic incomplete spastic paraplegia (HCC) (Primary Dx); Spasm of muscle; Myelitis (HCC); Impaired mobility and activities of daily livingStart: 81-57-9900Nli-patient / Non-visitToni Physician Group-[facility] Work Phone: Start: 04-10-2024 End: 82-02-7733Npwigqabzf hospital visit by physicianCt 2 Main Qb (I-Stat) RadiologyComment on above:Other hydrocephalus (HCC) [G91.8]Start: 04-10-2024 End: 95-60-6926izzbqglhorQGZWN SCHWIETERMANFacility:[facility] Start: 04-10-2024 End: 35-44-0315Qowvyai encounter procedureMarlene Cordero PA-C Work Phone: Neurological RestorationComment on above:Communicating hydrocephalus (HCC) (Primary Dx)Fungal meningitis (Primary Dx); Invasive fungal infection; Spinal cord mass (HCC); Communicating hydrocephalus (HCC); Type 1 diabetes mellitus with unspecified complications (HCC); 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; Muscle spasm of left lower extremity; Therapeutic drug monitoringStart: 04-04-2024 End: 33-90-6544Opedoylnc encounterNoel Daniels MD Work Phone: Rehab MedicineComment on above:Request to be scheduled for next Botox injection.Start: 03-24-2024 End: 23-76-1485Xibfhe Rebecca Ramos MD Work Phone: NeurologyComment on above:Disturbance of skin sensation (Primary Dx)Start: 03-21-2024 End: 71-37-0048ssiervfmjgNUXQ A SHUAIBFacility:[facility]: 03-21-2024 End: 97-54-2786Qhssqj outpatient visit 25 minutesReggie Butler MD Work Phone: Neurological RestorationComment on above:Communicating hydrocephalus (HCC) (Primary Dx); SpasticityStart: 78-34-7771Iyg-patient / Non-visitFirnewports Physician GroupEast [facility] Work Phone: Start: 03-18-2024 End: 31-59-7316khpmgsfwxvRUPFRSHA C UIFacility:[facility] Centertart: 03-18-2024 End: 91-85-5354Acpnymq encounter procedureShelbi Ramos MD Work Phone: NeurologyComment on above:SpasticityStart: 03-05-2024 Non-patient / Non-visitFirelands Physician Group-[facility] Work Phone: Start: 18-76-0952Jur-patient / Non-visitFirelands Physician Group-[facility] Work Phone: Start: 02-25-2024 End: 71-54-7566Vyqiivy encounter procedureOsmanyclinch valley medical center Physician Group-[facility] Work Phone: Start: 02-25-2024 End: 95-28-3179Azlhgj Silvia Mccarty MD Work Phone: Infectious DiseaseComment on above:Ulcer of left foot, unspecified ulcer stage (HCC) (Primary Dx)Podiatry ApptStart: 02-15-2024 End: 15-62-1847gympqdpynxBxto Mack APRN.SUPERVISOR NET MAKING Work Phone: Connected CareComment on above:Obstructive hydrocephalus (HCC) (Primary Dx); Fungal meningitis; S/P PSYCH NURSE shunt; Bilateral lower extremity edema; Essential hypertension; Diabetes mellitus type 1, controlled, without complications (HCC); Malignant neoplasm of urinary bladder, unspecified site (HCC)Start: 02-15-2024 End: 51-97-3143Ovtxcrrpnyda consultation with Julia Calzada APRN.CNP Work Phone: Connected CareStart: 15-03-4776Qjz-patient / Non-visit [facility] Physician [facility] Work Phone: Start: 02-13-2024 End: 80-45-1462Ndpuwdp encounter procedureCon Oconnor MD Work Phone: Neurological RestorationComment on above:Communicating hydrocephalus (HCC) (Primary Dx)Start: 02-11-2024 End: 63-12-9411gogsykkcgiXrdij Joshi MD Work Phone: PHYSICAL MEDICINE & REHABComment on above:Chronic incomplete spastic paraplegia (HCC) (Primary Dx); Spasm of muscle; Myelitis (HCC); Impaired mobility and activities of daily livingStart: 02-11-2024 End: 64-07-5801Wkroglmnwapz consultation with Luis Daniels MD Work Phone: PHYSICAL MEDICINE & REHABStart: 02-08-2024 End: 71-67-2121kzmukpyptxEbxxtJered Cordero PA-C Work Phone: Neurological RestorationComment on above:ShuntStart: 02-08-2024 End: 07-02-6393Ejrsvub encounter procedureCon Oconnor MD Work Phone: Neurological RestorationComment on above:Communicating hydrocephalus (HCC) (Primary Dx); SpasticityStart: 74-68-9491Xyp-patient / Non-visitFormerly [facility] Phys[facility] GroupEast [facility] Work Phone: Start: 72-29-0751Qbu-patient / Non-visitFormerly [facility] Work Phone: Start: 02-07-2024 End: 11-66-4337Zggftuqgg department patient visitMARCIA E BRAUNFacility:[facility] HospitalStart: 02-07-2024 End: 34-97-3155tquazqnegaDjwhe Molnar APRN.SUPERVISOR NET MAKING Work Phone: Wound OstomyComment on above:Pressure injury of left heel, unstageable (HCC) (Primary Dx); Physical deconditioningObstructive hydrocephalus (HCC) (Primary Dx); Fungal meningitis; Bilateral lower extremity edema; Essential hypertension; Diabetes mellitus type 1, controlled, without complications (HCC); Malignant neoplasm of urinary bladder, unspecified site (HCC)Start: 02-07-2024 End: 71-28-0711Oqywzokjimjm consultation with Marnie Dominguez APRN.SUPERVISOR NET MAKING Work Phone: Wound OstomyStart: 02-06-2024 End: 29-62-3500Ihomcta encounter Cornelio Gupta MD Work Phone: EndocrinologyComment on above: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) (Primary Dx); Elevated alkaline phosphatase level; Type 1 diabetes mellitus with hypoglycaemia (HCC); 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); Insulin pump status; Insulin pump titrationStart: 02-05-2024 End: 06-56-5072Wcvksdzyl encounterJamie Mccarty MD Work Phone: Infectious DiseaseStart: 02-04-2024 End: 68-30-0362Hudpva OnlyJamie Mccarty MD Work Phone: INFD HOSPComment on above:Fungal meningitis (Primary Dx)Start: 02-01-2024 End: 02-64-1848bjmdseegogJkckFlower Calzada APRN.CNP Work Phone: Connected CareComment on above:Obstructive hydrocephalus (HCC) (Primary Dx); Fungal meningitis; Bilateral lower extremity edemaStart: 02-01-2024 End: 85-36-9551Rbkqosjcjxuk consultation with Julia Calzada APRN.CNP Work Phone: Connected CareStart: 01-31-2024 End: 67-38-1634clivtwtnvdAvewtChristian Dominguez APRN.SUPERVISOR NET MAKING Work Phone: Wound OstomyComment on above:Pressure injury of left heel, unstageable (HCC) (Primary Dx); Physical deconditioningStart: 01-31-2024 End: 48-66-2495Pzmibxlamfsx consultation with Marnie Dominguez APRN.SUPERVISOR NET MAKING Work Phone: Wound OstomyStart: 01-30-2024 End: 44-40-8010TjaiibGautam Cordero PA-C Work Phone: Neurological RestorationComment on above:Other hydrocephalus (HCC) (Primary Dx)Start: 01-29-2024 End: 86-48-7861rsjpuftrkvZmpqceay Newman APRN.MARIS Work Phone: Connected CareComment on above:Obstructive hydrocephalus (HCC) (Primary Dx); Fungal meningitisStart: 01-29-2024 End: 66-50-6744Ztojxceiyqgb consultation with Maria Elena Carl APRN.CNP Work Phone: Connected CareStart: 01-24-2024 End: 17-38-5299ihylgthtopCxronuvx Newman APRN.SUPERVISOR NET MAKING Work Phone: Connected CareComment on above:Obstructive hydrocephalus (HCC) (Primary Dx); Fungal meningitisPressure injury of left heel, unstageable (HCC) (Primary Dx); Physical deconditioningStart: 01-24-2024 End: 93-96-1110Bkxnqsdcerus consultation with Maria Elena Carl APRN.MARIS Work Phone: Connected CareStart: 01-22-2024 End: 63-37-6927kiqrgdxqnmEfhzlmda Newman APRN.[facility] Work Phone: Connected CareComment on above:Obstructive hydrocephalus (HCC) (Primary Dx); Fungal meningitis; Essential hypertension; Tibia/fibula fracture, left, closed, initial encounter; Diabetes mellitus type 1, controlled, without complications (HCC)Start: 01-22-2024 End: 57-28-5302Oeaimmjnunfb consultation with Maria Elena Carl APRN.SUPERVISOR NET MAKING Work Phone: Connected CareStart: 41-60-6648Iiuavyh encounter procedureAdams County Hospitaltart: 01-17-2024 End: 40-41-6969bypvvriemnUyvjniss Newman APRN.[facility] Work Phone: Connected CareComment on above:Obstructive hydrocephalus (HCC) (Primary Dx); Fungal meningitisStart: 01-17-2024 End: 51-95-2765Zmudemwaankz consultation with Maria Elena Carl APRN.SUPERVISOR NET MAKING Work Phone: Connected CareStart: 01-15-2024 End: 16-73-3410lgpmgkefamWjcxkexa Newman APRN.[facility] Work Phone: Connected CareComment on above:Obstructive hydrocephalus (HCC) (Primary Dx); Fungal meningitisStart: 01-15-2024 End: 42-40-7377Bawjqfnmywsc consultation with Maria Elena Carl APRN.SUPERVISOR NET MAKING Work Phone: Connected CareStart: 01-11-2024 End: 27-22-0305Ticsnql encounter procedureNoel Daniels MD Work Phone: [facility] FHCComment on above: Chronic incomplete spastic paraplegia (HCC) (Primary Dx); Spasm of muscle; Myelitis (HCC); Impaired mobility and activities of daily livingStart: 01-10-2024 End: 02-53-2759Skqyyyotjf hospital visit by physicianCt [address] Q[address] (I-Stat) RadiologyComment on above:Other hydrocephalus (HCC) [G91.8]Start: 01-10-2024 End: 28-79-5352znjnuaqntzIuicadaxErica Carl APRN.CNP Work Phone: Connected CareComment on above:Obstructive hydrocephalus (HCC) (Primary Dx); Fungal meningitisPressure injury of left heel, unstageable (HCC) (Primary Dx); Physical deconditioningStart: 01-10-2024 End: 61-13-6494Ggomvskryyeg consultation with Maria Elena Carl APRN.MARIS Work Phone: Connected CareStart: 01-10-2024 End: 72-80-4298Lkzuldj encounter Eli Monge PA-C Work Phone: Orthopaedics ClevelandComment on above:Tibia/fibula fracture, left, closed, initial encounter (Primary Dx)Other hydrocephalus (HCC) (Primary Dx)Fungal meningitis (Primary Dx); Myelitis (HCC); Invasive fungal infection; Muscle spasm of left lower extremity; Spinal cord mass (HCC); shelter (current) use of antibiotics; Communicating hydrocephalus (HCC)Start: 01-10-2024 End: 75-59-5348Ixjqmxropc [facility] Comment on above:Tibia/fibula fracture, left, closed, initial encounter [S82.202A, S82.402A]Start: 01-08-2024 End: 11-68-7025iyyhokslizMazpgousErica Carl APRN.CNP Work Phone: Connected CareComment on above:Obstructive hydrocephalus (HCC) (Primary Dx); Fungal meningitisStart: 01-08-2024 End: 96-71-1014Vacxkchxzkka consultation with Maria Elena Carl APRN.CNP Work Phone: Connected CareStart: 01-03-2024 End: 92-03-4755zzogiehmcxNpoqamhgErica Carl APRN.CNP Work Phone: Connected CareComment on above:Obstructive hydrocephalus (HCC) (Primary Dx); Fungal meningitisStart: 01-03-2024 End: 24-07-6991Npvuyavofyve consultation with Maria Elena Carl APRN.CNP Work Phone: Connected CareStart: 12-27-2023 End: 01-93-6595xrkcuxfsorFsfnlChristian Dominguez APRN.[facility] Work Phone: Wound OstomyComment on above:Pressure injury of left heel, unstageable (HCC) (Primary Dx); Physical deconditioningObstructive hydrocephalus (HCC) (Primary Dx); Fungal meningitisStart: 12-27-2023 End: 02-56-5242Tyfoesjmtawn consultation with Marnie Dominguez APRN.SUPERVISOR NET MAKING Work Phone: Wound OstomyStart: 12-25-2023 End: 00-62-2836ijkhimzwuaKvckggyyCata Carl APRN.[facility] Work Phone: Connected CareComment on above:Obstructive hydrocephalus (HCC) (Primary Dx); Fungal meningitisStart: 12-25-2023 End: 60-14-0939Mnzzmsoccynp consultation with Maria Elena Carl APRN.[facility] Work Phone: Connected CareStart: 12-21-2023 End: 27-63-9321Qutyagv encounter procedureJamie Mccarty MD Work Phone: Infectious DiseaseComment on above:Myelitis (HCC) (Primary Dx); Invasive fungal infection; 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 Work Phone: Start: 12-21-2023 End: 83-32-1552Wwzwpu outpatient visit 40 minutesUmar Audrey Butler MD Work Phone: Neurological RestorationComment on above:Other hydrocephalus (HCC)Start: 12-20-2023 End: 84-89-8266sveqkuddipThyxcChristian Dominguez APRN.[facility] Work Phone: Wound OstomyComment on above:Pressure injury of left heel, unstageable (HCC) (Primary Dx); Physical deconditioningObstructive hydrocephalus (HCC) (Primary Dx); Fungal meningitisStart: 12-20-2023 End: 63-27-4380Kurqwxejjfck consultation with Marnie Dominguez APRN.CNP Work Phone: Wound OstomyStart: 12-18-2023 End: 12-50-7582xyfifcivmvIfovtzsb Newman APRN.SUPERVISOR NET MAKING Work Phone: Connected CareComment on above:Obstructive hydrocephalus (HCC) (Primary Dx); Fungal meningitis; Essential hypertensionStart: 12-18-2023 End: 02-20-7343Cvkvveycwemw consultation with Maria Elena Carl APRN.MARIS Work Phone: Connected CareStart: 12-13-2023 End: 72-66-9347pwhxzobfxzAeqwhjuh Newman APRN.SUPERVISOR NET MAKING Work Phone: Connected CareComment on above:Obstructive hydrocephalus (HCC) (Primary Dx); Fungal meningitisPressure injury of left heel, unstageable (HCC) (Primary Dx); Physical deconditioningStart: 12-13-2023 End: 25-56-6818Rptfwahgyztx consultation with Maria Elena Carl APRN.MARIS Work Phone: Connected CareStart: 12-11-2023 End: 15-84-0724pixiwkwtnkRpfbtvkp Newman APRN.SUPERVISOR NET MAKING Work Phone: Connected CareComment on above:Obstructive hydrocephalus (HCC) (Primary Dx); Fungal meningitisStart: 12-11-2023 End: 36-40-9696Ldmeangryeks consultation with Maria Elena Carl APRN.CNP Work Phone: Connected CareStart: 12-10-2023 End: 04-12-4599Chscmn Ari Carl APRN.CNP Work Phone: Connected CareComment on above:Obstructive hydrocephalus (HCC)Start: 12-08-2023 End: 60-93-5781Cfnoae Silvia Mccarty MD Work Phone: INFD HOSPStart: 12-06-2023 End: 23-07-9303fdqwushrsqEdkakqkh Newman APRN.[facility] Work Phone: Connected CareComment on above:Obstructive hydrocephalus (HCC) (Primary Dx); Fungal meningitisStart: 12-06-2023 End: 13-80-0647Venhosdrexzk consultation with Maria Elena Carl APRN.SUPERVISOR NET MAKING Work Phone: Connected CareStart: 12-05-2023 End: 51-92-9924whrhfrhdykRucjx Molnar APRN.[facility] Work Phone: Wound OstomyComment on above:Pressure injury of left heel, unstageable (HCC) (Primary Dx); Physical deconditioningStart: 12-05-2023 End: 92-01-3948Uvkmxisfjgom consultation with Marnie Dominguez APRN.[facility] Work Phone: Wound OstomyStart: 12-04-2023 End: 54-97-2158Aawsoq Ari Carl APRN.[facility] Work Phone: Connected CareComment on above:Obstructive hydrocephalus (HCC)Chronic incomplete spastic paraplegia (HCC) (Primary Dx); Fungal meningitis; Myelitis (HCC); Communicating hydrocephalus (HCC); Spasm of muscle; Impaired mobility and activities of daily livingOPENED IN ERROR (Primary Dx) Start: 12-03-2023 End: 84-79-2664ojuzioithiPlfcgq Isada MD Work Phone: Infectious DiseaseComment on above:NoxafilStart: 12-02-2023 End: 93-64-4162Qwpgsc encounterArlene Chambers MD Work Phone: [facility]HealthStart: 91-07-5535Ihcwoqyyn encounterNoel Daniels MD Work Phone: [facility] FHCComment on above: AppointmentStart: 11-29-2023 End: 49-16-8668Zhhonjy encounter Austyn Cordero PA-C Work Phone: Neurological RestorationComment on above:Spasticity (Primary Dx); Other hydrocephalus (HCC)Start: 11-29-2023 End: 59-30-4235Yvgepkajmz hospital visit by physicianSerenity Marin Work Phone: RadiologyComment on above:Other hydrocephalus (HCC) [G91.8]Start: 11-29-2023 End: 62-64-4261oppzyxccubQrqjeffc Newman APRN.CNP Work Phone: Connected CareComment on above:Obstructive hydrocephalus (HCC) (Primary Dx); Fungal meningitisPressure injury of left heel, unstageable (HCC) (Primary Dx); Physical deconditioningStart: 11-29-2023 End: 78-42-2136Dkobpcitnpbm consultation with Demarphoebe Siddhartha SOUTH Work Phone: Connected CareStart: 11-27-2023 End: 77-02-9176Lmtdkja encounter procedureAashish Monge PA-C Work Phone: Orthopaedics ClevelandComment on above:Tibia/fibula fracture, left, closed, initial encounter (Primary Dx); Severe protein-calorie malnutrition (HCC)Obstructive hydrocephalus (HCC)Start: 11-27-2023 End: 12-11-7797Xnkollbskh hospital visit by physicianAda [facility]Rad[facility] Comment on above:Tibia/fibula fracture, left, closed, initial encounter [S82.202A, S82.402A]Start: 16-30-1087MhvmoaGautam Kay APRN.CNP Work Phone: connected CareComment on above:Obstructive hydrocephalus (HCC)Start: 11-22-2023 End: 27-64-7587lumgcnvwgdIkwquChristian Dominguez APRN.SUPERVISOR NET MAKING Work Phone: Wound OstomyComment on above:Pressure injury of left heel, unstageable (HCC) (Primary Dx); Physical deconditioningObstructive hydrocephalus (HCC) (Primary Dx); Fungal meningitisStart: 11-22-2023 End: 06-76-2935Icqhewjrtbly consultation with Marnie Dominguez APRN.CNP Work Phone: Wound OstomyStart: 46-38-4882amcimttmtvQxdnyyirCata Carl APRN.MARIS Work Phone: Connected CareComment on above:Obstructive hydrocephalus (HCC) (Primary Dx); Fungal meningitisStart: 94-62-8205Pcffswffwkpv consultation with Maria Elena Carl APRN.MARIS Work Phone: Connected CareStart: 01-09-9057Ocjqam Ari Carl APRN.SUPERVISOR NET MAKING Work Phone: Connected CareComment on above:Obstructive hydrocephalus (HCC) (Primary Dx)Start: 11-16-2023 End: 24-69-2651Duaajbg encounter procedureJamie Mccarty MD Work Phone: Infectious DiseaseComment on above:Fungal meningitis (Primary Dx); shelter (current) use of antibiotics; Muscle spasm of left lower extremity; Myelitis (HCC); Muscle spasm of right lower extremity; Communicating hydrocephalus (HCC); Spinal cord mass (HCC)Start: 56-35-7003dyjlcvxbudJkalrbmnCata Carl APRN.MARIS Work Phone: Connected CareComment on above:Obstructive hydrocephalus (HCC) (Primary Dx); Fungal meningitisStart: 50-20-0960Pkpvtsiufeoy consultation with Maria Elena Carl APRN.CNP Work Phone: Connected CareStart: 11-15-2023 End: 39-23-8836jysgmltrnsFfjxqChristian Dominguez APRN.CNP Work Phone: Wound OstomyComment on above:Pressure injury of left heel, unstageable (HCC) (Primary Dx); Physical deconditioningStart: 11-15-2023 End: 48-32-1858Sppaokavfess consultation with Marnie Dominguez APRN.CNP Work Phone: Wound OstomyStart: 31-07-5457otmslggxswYnapwzttCata Carl APRN.CNP Work Phone: Connected CareComment on above:Obstructive hydrocephalus (HCC) (Primary Dx); Fungal meningitis; Tibia/fibula fracture, left, closed, initial encounter; Diabetes mellitus type 1, controlled, without complications (HCC); Malignant neoplasm of urinary bladder, unspecified site (HCC)Start: 11-14-2023 Telemedicine consultation with Maria Elena Carl APRN.CNP Work Phone: Connected CareStart: 11-08-2023 End: 74-21-0175xttqckjtmdDlfrsHugo Dominguez APRN.CNP Work Phone: Wound OstomyComment on above:Pressure injury of deep tissue of left heel (Primary Dx); Maceration of periwound skin; Pressure injury of deep tissue of left foot; Physical deconditioningWeak (Primary Dx); Fracture; Communicating hydrocephalus (HCC)Start: 11-08-2023 End: 10-21-3251Iohwmarvzzbm consultation with Marnie Dominguez APRN.CNP Work Phone: Wound OstomyStart: 66-50-1547Fzikhgygn encounterSharan Dominguez APRN.CNP Work Phone: Wound OstomyComment on above:Initial Consult (Wound Consult)Start: 10-31-2023 End: 61-03-4242Sefsahe encounter Austyn Cordero PA-C Work Phone: Neurological RestorationComment on above:Other hydrocephalus (HCC) (Primary Dx)Start: 99-63-3123pavsoxmamhVUJMFC E BRAUN [facility]: 10-29-2023 End: 67-61-7281Kmiftfumzz hospital visit by physicianCt [facility] ([facility]) Work Phone: [facility] Radiology CT ScanStart: 10-25-2023 End: 29-36-6262Ubifujb evaluation of patient and reportSClaudia Spencer RN Work Phone: Orthopaedics ClevelandComment on above:Tibia/fibula fracture, left, closed, initial encounter (Primary Dx)Start: 10-25-2023 End: 23-69-2607Byspjyzept hospital visit by Jennifer [facility] Comment on above:Tibia/fibula fracture, left, closed, initial encounter [S82.202A, S82.402A]Start: 10-20-2023 End: 40-51-8796Nbtnhqrpts hospital visit by Bridgett Connell DO Work Phone: [facility] AVONStart: 78-32-1167Edwsxn OnlyMarlene Cordero PA-C Work Phone: Neurological RestorationComment on above:Other hydrocephalus (HCC) (Primary Dx)Start: 10-12-2023 End: 38-39-6758Wtyrbjf encounter statusMarlene Cordero PA-C Work Phone: [facility]Start: 59-51-5301Uaoqzadsl encounter Caro Bradley MD Work Phone: [facility] Provider AdultComment on above:Hospital Admission Start: 10-06-2023 End: 52-63-5201Mklkcvmxt department [facility]AC[facility] Start: 10-04-2023 End: 50-32-7766Glxfvmzxuk hospital visit by Jordan [facility]ager [facility] Work Phone: RadiologyComment on above:History of bladder cancer [Z85.51]Start: 10-04-2023 End: 17-81-7451Ysjffoc encounter procedureMarlene Cordero PA-C Work Phone: Neurological RestorationComment on above: Hydrocephalus, adult (HCC) (Primary Dx)Fungal meningitis (Primary Dx); Muscle spasm of left lower extremity; Muscle spasm of right lower extremity; Communicating hydrocephalus (HCC); shelter (current) use of antibiotics; Therapeutic drug monitoring; Type 1 diabetes mellitus with unspecified complications (HCC); Spinal cord mass (HCC)Start: 09-25-2023 End: 76-54-3118whevngsmcoPgqhziaywFirelands Regional Medical Center Work Phone: Start: 09-25-2023 End: 79-61-6252Cgvojfs encounter procedureToni Physician Group-[facility] Work Phone: Start: 60-80-2225Hzxems OnlyNicole Dennison BACK UP SCAN COORDINATOR.SUPERVISOR NET MAKING Work Phone: UrologyComment on above:History of bladder cancer (Primary Dx)R/T appointment yesterdayStart: 09-18-2023 End: 65-91-6367Qfpjwzm encounter procedureTonie Rosado MD Work Phone: Neurological RestorationComment on above: Hydrocephalus, adult (HCC) (Primary Dx); Other hydrocephalus (HCC); Meningitis, fungal; Weakness of both lower extremities; SpasticityStart: 96-31-2732Thsazu Silvia Mccarty MD Work Phone: Infectious DiseaseStart: 71-45-5881Rgomot OnlyNicole Dennison BACK UP SCAN COORDINATOR.SUPERVISOR NET MAKING Work Phone: UrologyComment on above:History of bladder cancer (Primary Dx)Start: 48-78-3564nrfnvulbrkCeca Almassi MD Work Phone: UrologyStart: 94-49-8111Xyxcojqly encounterStoma Therapy Work Phone: HOSP STOMAComment on above:Stoma ConsultStart: 09-12-2023 End: 50-77-2017Hiqtfut encounter procedurePeterson Gonsalez MD Work Phone: UrologyComment on above:History of bladder cancer (Primary Dx); Severe protein-calorie malnutrition (HCC)Start: 09-12-2023 End: 44-49-0769Psmnumq evaluation of patient and reportStoma Therapy Work Phone: Colorectal SurgeryComment on above:Attention to urostomy (HCC) (Primary Dx); Attention to artificial opening of urinary tract (HCC)Start: 09-06-2023 ambulatoryCon Oconnor MD Work Phone: Neurological RestorationStart: 06-14-7576Pglpsqv encounter procedureMarlene Cordero PA-C Work Phone: Neurological RestorationComment on above:R/T appointment with movement specialistStart: 98-67-4523Qworoecsn encounterCaleleslie Cordero PA-C Work Phone: Neurological RestorationComment on above:Patient UpdateStart: 09-04-2023 End: 19-18-2322jgexybktloYmkrybf A Rammo MD Work Phone: Neurological RestorationComment on above:Communicating hydrocephalus (HCC) (Primary Dx)Start: 09-04-2023 End: 24-48-9962Gqcvvtwjjocr consultation with Sandhya Oconnor MD Work Phone: Neurological RestorationStart: 76-76-0879Gxhfheale encounterJamie Mccarty MD Work Phone: Infectious DiseaseStart: 56-72-9372bmdpcnzwhoRqnid Schwieterman PA-C Work Phone: Neurological RestorationComment on above:CT scanStart: 08-30-2023 End: 88-53-2017Hudukfk encounter procedureMarlene Cordero PA-C Work Phone: Neurological RestorationComment on above:Other hydrocephalus (HCC) (Primary Dx)Start: 35-36-2257Pgfqtiejp encounterAnna Erich RNMetroSelect Medical Specialty [facility] Urologic SurgeryStart: 08-28-2023 End: 58-12-2014gkyybbmulgJFUBC REDDYFacility:METROHealthStart: 08-28-2023 End: 52-48-0608Qjaqwdkpxk hospital visit by physicianCarilion [facility] Medical CenterimageMetProtestant Hospital RadiologyComment on above: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 Clare Hospital Professional Co Work Phone: Start: 94-00-7082Lopyqlydx to same day surgery center Daniel Figueroa MD Work Phone: [facility] NeurosurgeryComment on above:CT scanStart: 18-60-1607D-mail encounter from Shira Figueroa MD Work Phone: [facility]Pro[facility] NeurosurgeryStart: 53-06-9609Dyspbfebv encounterCarshonda Chambers MD Work Phone: [facility]Pro[facility] Urologic SurgeryStart: 08-14-2023 End: 74-25-5911Ubvbcuf encounter procedureAashish Monge PA-C Work Phone: Orthopaedics ClevelandComment on above:Closed nondisplaced transverse fracture of left patella, initial encounter (Primary Dx) Start: 08-14-2023 End: 31-72-6295Bdwpbfquqi hospital visit by physicianHahnemann HospitalRadiology Comment on above:Closed nondisplaced transverse fracture of left patella, initial encounter [S82.035A]Start: 84-53-8834Oasyhjfzt encounterAndmargret Andujar RNMetroSelect Medical Special[facility] Surgery GeneralStart: 87-13-5549Pipphiiaa encounterStoma Therapy Work Phone: HOSP STOMAComment on above:Stoma ConsultStart: 78-74-5322Vhdfconew encounterAndmargret Andujar RNMetroHealth Surgery GeneralStart: 27-77-3799Pxcqljcqc encounterAndmargret Andujar RNMetroHealth Surgery GeneralStart: 08-01-2023 End: 92-16-9334mbkhikxhkmXddnbdim Seybert PA-C Work Phone: [facility] Work Phone: Comment on above:Left patellaStart: 08-01-2023 Telephone encounterJamie Mccarty MD Work Phone: Infectious DiseaseComment on above:Insurance Authorization; NoxafilStart: 08-01-2023 End: 70-75-8646Oifpcgh encounter procedureToni Physician GroupThe Jewish Hospital Work Phone: Start: 63-83-5415trbhkkzspdCortcn Isada MD Work Phone: Infectious DiseaseComment on above:Noxifil through [employer]Start: 09-02-6121Xlwuzosqc encounterJennifer Sandhu RNHuntington HospitalroSelect Medical Specialty [facility] Surgery GeneralStart: 07-26-2023 End: 97-60-3962lgmsozrsqsRZKNKVY PROVIDERFacility:METROHealthStart: 07-26-2023 End: 13-89-8202vernekdqroNPAKG REDDYFacility:METROHealthStart: 07-26-2023 End: 84-19-9254Lovbkbj encounter Luciana Figueroa MD Work Phone: MetProtestant Hospital NeurosurgeryComment on above: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)Intraoperative ureteral injury (Primary Dx) Start: 07-18-2023 End: 97-67-4089olebeiesekUPBTIJA PROVIDERFacility:METROHealthStart: 07-18-2023 End: 84-81-1967Gugfrm outpatient visit 15 minutesAcute [facility] Acute Care SurgeryComment on above:Small bowel obstruction (HCC) (Primary Dx)Start: 07-17-2023 End: 94-61-5777ztvmuleeodBprhlyrmiMercy Health West Hospital Work Phone: Start: 07-17-2023 End: 55-38-4808Gqllnop encounter procedureFormerly [facility] Physician GroupThe Jewish Hospital Work Phone: Start: 23-72-4465Bnbatrineu and management of inpatientVANESSA HOFacility:METROHealthStart: 60-07-4560Oencjqitd encounter Jennifer Sandhu RNMarietta Osteopathic Clinic Surgery GeneralStart: 23-99-6559Atczzmdkgy and management of inpatientVANESSA HOFacility:METROHealthStart: 50-37-3441uelxuiliov Marlene Cordero PA-C Work Phone: Neurological RestorationComment on above:AV Shunt Start: 75-81-1901Bxwxrxxcrk and management of inpatientVANESSA HO Facility:METROHealthStart: 04-70-1183Pmrtudlxyw and management of inpatient [place] HOFacility:METROHealthStart: 55-26-2308Mryqopzwuq and management of inpatientVANESSA HOFacility:METROHealthStart: 41-56-9219Byapdlsaxw and management of inpatientVANESSA HOFacility:METROHealthStart: 06-26-2023 End: 41-22-1060Nphhbce encounter procedurePeterson Gonsalez MD Work Phone: UrologyComment on above:APPOINTMENT CANCELLED (Primary Dx)Start: 06-25-2023 End: 42-36-0919oporrqcqpgYODFMDB PROVIDERFacility:HealthStart: 06-25-2023 Emergency department patient visitKEVIN LEWISFacility:HealthStart: 06-25-2023 End: 32-02-2084Svvxtywnva and management of inpatientMattedyta Roldan MD Other Phone: [place]Cl[place] [address] EastStart: 48-52-9795Hlz-patient / Non-visitFirelands Physician GroupSt. Clare Hospital Professional Co Work Phone: Start: 06-21-2023 End: 55-41-7975clxufgabzoAnobfqldRobert Monge PA-C Work Phone: Orthopaedics ClevelandComment on above:Closed nondisplaced transverse fracture of left patella, initial encounter (Primary Dx) Start: 06-21-2023 End: 61-13-9813Wvfesszoynul consultation with Miguel Monge PA-C Work Phone: [facility] HOSPITALStart: 37-95-1539WuwsbzBfhpqf Isada MD Work Phone: Infectious DiseaseComment on above:Refill Request Start: 43-98-3595oxrrhwjfvlPq Pcp APRNNavigate Clinic EnterpriseStart: 06-18-2023 End: 41-78-0809Clzjhbqvxb hospital visit by physicianGeneral Francesco Jay Mc Work Phone: RadiologyComment on above:Closed nondisplaced transverse fracture of left patella, initial encounter [S82.035N]History of bladder cancer [Z85.51]Start: 05-28-2023 End: 33-50-6358ojdavxqjeiCgbxzlwk Ball Other noMedical [employer] Other Start: 03-82-9652Npekxx outpatient visit 15 minutes Juliette BerumenEscobar [facility] [facility]Start: 05-10[facility]2023 End: 95-09-4322Unmezhx encounter procedureJamie Mccarty MD Work Phone: Infectious DiseaseComment on above:Fungal meningitis (Primary Dx); Spinal cord mass (HCC); Type 1 diabetes mellitus with unspecified complications (HCC); shelter (current) use of antibiotics; Communicating hydrocephalus (HCC)Start: 05-09-2023 End: 17-05-4138Menfkssiwz hospital visit by physicianchristiane [facility] Miriam (1.5t) Work Phone: RadiologyComment on above:Cervicalgia [M54.2]Start: 04-25-2023 End: 23-87-9754rngccshofdGankhcvs Ball Other [employer] Other Start: 88-45-7403Xfzyyh outpatient visit [address] [facility]Start: 04-25-2023 End: 99-42-5632Uofigxm encounter procedureToni Harvey [facility] Work Phone: Start: 04-12-2023 End: 36-19-4856qyejminvzpLdvmvffb Ball Other no[employer] Other Start: 66-99-6073Tpqhqsfed encounterBemiladisevens BerumenEscobar Berumen [facility] ClinicStart: 03-19-2023 End: 52-02-3861Bfygdnx encounter procedureJamie Mccarty MD Work Phone: Infectious DiseaseComment on above:Fungal meningitis (Primary Dx); Acute pain of both shoulders; Obstructive hydrocephalus (HCC); Therapeutic drug monitoring; shelter (current) use of antibiotics; Spinal cord mass (HCC); Type 1 diabetes mellitus with unspecified complications (HCC); Myelitis (HCC)Start: 03-02-2023 End: 77-46-5849wvycgrstwtYjjrenbq Rohrbacher Other [employer] Other Start: 27-10-2015Hjytbq outpatient visit 15 minutes [facility]: 01-21[facility]2023 End: 39-02-7559yztjjubcoaXxilcizn Ball Other no[employer] Other Start: 14-87-3348Xwrixljih encounterBemiladisarnaldo [facility] ClinicStart: 01-18-2023 End: 45-46-0933dcxvcsytvmVglyxrpm Ball Other [employer] Other Start: 32-52-5748Fpludir encounter procedureBemiladisarnaldo [facility] ClinicStart: 01-15-2023 End: 57-31-7718Tmtaabx encounter procedureJamie Mccarty MD Work Phone: Infectious DiseaseComment on above:Fungal meningitis (Primary Dx); Obstructive hydrocephalus (HCC); Spinal cord mass (HCC); Type 1 diabetes mellitus with unspecified complications (HCC); Myelitis (HCC); shelter (current) use of antibioticsStart: 35-15-4181Owmqzitlf encounterAmy Gallup RNUrologyComment on above:Urinary supply problemStart: 01-09-2023 End: 00-29-7958Ydcrqwa encounter procedurePeterson Gonsalez MD Work Phone: UrologyComment on above:History of bladder cancer (Primary Dx)Start: 01-02-2023 End: 18-69-9137dfusmtrdiyLqinxadg Ball Other [employer] Other Start: 80-87-8592Rhdzpbiwr encounterBemiladisarnaldo [facility] Northeasttart: 12-25-2022 End: 50-46-8585Qehoepuyag hospital visit by physicianArrival Time Radiology Work Phone: Radiology Pet CTComment on above:History of bladder cancer [Z85.51]Start: 12-14-2022 End: 41-17-5983Hcatnoc encounter Austyn Cordero PA-C Work Phone: Neurological RestorationComment on above:Other hydrocephalus (HCC) (Primary Dx)Start: 11-15-2022 End: 19-76-3650Csmiybpjzc hospital visit by physicianArrival Time Radiology Work Phone: Radiology Pet CTComment on above:Other hydrocephalus (HCC) [G91.8]Start: 10-18-2022 End: 32-38-5857Dsiycoe encounter procedureJamie Mccarty MD Work Phone: Infectious DiseaseComment on above:Therapeutic drug monitoring (Primary Dx); Fungal meningitis; Spinal cord mass (HCC); Type 1 diabetes mellitus with unspecified complications (HCC)Start: 10-03-2022 End: 21-45-5115qggliqakhaOZ Juliette Berumen Work Phone: [facility] Work Phone: Start: 10-03-2022 End: 65-27-6758Fmtbpys encounter procedureDO Segovia Jamaica Work Phone: [facility]-Electrodiagnostics Work Phone: Start: 72-29-3061bxxmefjhreWbjwwzf D Danese Facility:[id number]: 09-28-2022 End: 44-18-5520tpciwmiodsNS Juliette Jamaica Work Phone: [facility] Work Phone: Start: 09-28-2022 End: 32-85-8547Ocykppilea Recurring Juliette Berumen Work Phone: [facility] [place] Work Phone: Start: 09-26-2022 End: 50-44-1593joovkkldlqRkywwe Braun Other [employer] Other Start: 25-46-8223Ffobwg outpatient visit 15 minutes Kalli [facility] ClinicStart: 09-21-2022 End: 06-02-4989Owedfsn encounter procedureMarlene Cordero PA-C Work Phone: Neurological RestorationComment on above:Other hydrocephalus (HCC) (Primary Dx)Start: 09-15-2022 End: 51-15-3903rapnlrppcbFryjxjvo Ball Other [employer] Other Start: 50-52-8694Lstjaf outpatient visit 25 minutes Juliette [facility] ClinicStart: 09-14-2022 End: 83-46-1997Vacmuxtgkf [facility]iam Work Phone: RadiologyComment on above:Other hydrocephalus (HCC) [G91.8]Start: 08-25-2022 End: 16-53-1505igyxficadsQbipdcow Ball Other [employer] Other Start: 12-91-9626Ncbqevysw encounterChrisarnaldo [facility] ClinicStart: 08-25-2022 End: 88-04-5790Ryvhhxh encounter procedureMarlene Cordero PA-C Work Phone: Neurological RestorationComment on above:Other hydrocephalus (HCC) (Primary Dx); Severe protein-calorie malnutrition (HCC)Start: 48-04-7265Yarwawykb encounter Marlene Cordero PA-C Work Phone: Neurological RestorationComment on above:Patient UpdateStart: 08-17-2022 End: 85-62-6522uqwpoytavhHpkbkgbf Ball Other [employer] Other Start: 60-37-2461Hulixkwgf encounterJamie Mccarty MD Work Phone: Infectious DiseaseComment on above:Patient Question Start: 08-16-2022 End: 70-96-5053wtdiblapwxEmeetmpl Ball Other [employer] Other Start: 28-73-2092Yejdcuqwm encounterBenjamin BallANGELYG [facility] ClinicStart: 08-16-2022 End: 72-26-3645Gnvxvjvyc therapyPeterson Gonsalez MD Work Phone: UrologyComment on above:Malignant neoplasm of urinary bladder, unspecified site (HCC) (Primary Dx); Severe protein-calorie malnutrition (HCC); Type 1 diabetes mellitus with unspecified complications (HCC)Start: 08-16-2022 End: 17-48-1514Ijquyalaqrzd consultation with Kim Gonsalez MD Work Phone: [facility] MAINStart: 08-16-2022 End: 96-01-4268Zhrexkhdlw hospital visit by physicianArrival Time Radiology Work Phone: Radiology Pet CTComment on above:Other hydrocephalus (HCC) [G91.8]Start: 08-11-2022 End: 41-31-0531wxpbuaiinkYpwzgwpq Ball Other [employer] Other Start: 35-30-3663Cjuati outpatient visit 25 minutes Juliette JamaicaFPG [facility] ClinicStart: 46-37-9002praypyyympXE DOCTOR [facility] Facility:O2Antgf: 08-07-2022 End: 03-14-6158mkjltlakvsEwqyndko Ball Other [employer] Other Start: 06-69-7864Mkznhdgsx encounterBenjamin BallFPG [facility] ClinicStart: 08-04-2022 End: 60-75-4894mpqbgsukwxIotivapg Ball Other [employer] Other Start: 92-63-8602Ugpguxqzr encounterBenjamin BallFPG [facility] Medical ClinicStart: 07-25-2022 End: 45-67-0165rsjyxggagjFmovkwld Ball Other nort [employer] Other Start: 96-39-9671Zaqonaiyy encounterBenjamin BallFPG Ball Medical ClinicStart: 97-83-5565Yjcnjl Perla Campos MD Work Phone: Endovascular CenterComment on above:Other hydrocephalus (HCC) (Primary Dx)Start: 92-55-3703Vzygxk Silvia Mccarty MD Work Phone: INFD HOSPComment on above:Cervicalgia (Primary Dx) Start: 07-14-2022 End: 67-15-5463cakefgarkcWbulbpck Ball Other [facility] [employer] Other Start: 43-53-5977Cdldzppxu encounterBenjamin BallFPG [facility] ClinicStart: 06-28-2022 End: 45-50-7422pthwahprddEgdtkjpz Ball Other [facility] [employer] Other Start: 92-57-1826Uyvzzfsuv encounterBenjamin BallFPG [facility] ClinicStart: 56-73-5100Izzfghsvd encounterMik Zapata MD Work Phone: me Provider AdultComment on above:Hospital To Hospital Start: 05-27-2022 End: 03-51-2606oqtkbsrrrgOEEWOD LOMBARDIFacility:L7Funzv: 05-25-2022 End: 69-20-8267uagqpkorpoXaroeneb Ball Other no[employer] Other Start: 46-42-9907Tqgkfjl facility discharge management 30 minutesBenjamin BallBellevue Care CenterStart: 05-21-2022 End: 26-39-0831zmfaarbrdaVftgipav Ball Other [facility] [employer] Other Start: 28-29-8545Ddkeidtpu encounterBejosue [facility] ClinicStart: 05-15-2022 End: 27-37-5948pahzdygbmaDrvcmefv Ball Other [facility] [employer] Other Start: 55-29-9455Mpivwhurz encounterJuliette [facility] ClinicStart: 05-08-2022 End: 66-46-0304Zeszsrjcap and management of inpatientDR GAURI JOY .Facility:H1 Start: 05-02-2022 End: 47-93-6173Wmsnxfl encounter Sindy Gonsalez MD Work Phone: UrologyComment on above:History of bladder cancer (Primary Dx)Start: 04-16-2022 End: 27-90-6504bquvmemuofOF JULIETTE BERUMENFacility:E9Esfdz: 03-29-2022 End: 02-61-9397Fruoogknip and management of inpatientDR CLARE Carmine YAMEL . Facility:G6Hzisr: 03-22-2022 End: 72-09-9051rplwzqvpttVI JULIETTE BALLFacility:T3Iybcl: 03-13-2022 End: 34-96-2897Mlggfmd encounter Kiera Montez MD Work Phone: General SurgeryComment on above:S/P exploratory laparotomy (Primary Dx); Severe protein-calorie malnutrition (HCC); Chronic low back pain without sciatica, unspecified back pain lateralityStart: 03-09-2022 End: 91-09-3451hniaggdqkzTA ALYCE WASHINGTONRFacility:T0Xwtnm: 02-24-2022 End: 29-28-4486rrbmvijbziUP ALY MONTEZFacility:B0Btgoj: 02-10-2022 End: 70-63-2051Oypzadi encounter Kiera Montez MD Work Phone: General SurgeryComment on above:S/P exploratory laparotomy (Primary Dx); Severe protein-calorie malnutrition (HCC)Start: 01-31-2022 End: 81-04-1487aujxztnxceLV JULIETTE BERUMENFacility:G2Lfzqc: 48-39-2602Nguivdynb encounterPeterson Gonsalez MD Work Phone: UrologyComment on above:AppointmentPatient Question Start: 01-30-2022 End: 88-15-1877Nncpzsn encounter Kiera Montez MD Work Phone: General SurgeryComment on above:Severe protein-calorie malnutrition (HCC) (Primary Dx); S/P exploratory laparotomyStart: 01-30-2022 End: 42-28-2801Tdpnahe encounter procedurePeterson Gonsalez MD Work Phone: UrologyComment on above:History of bladder cancer (Primary Dx); Malignant neoplasm of urinary bladder, unspecified site (HCC)Start: 01-27-2022 Telephone encounterPeterson Gonsalez MD Work Phone: UrologyComment on above:AppointmentStart: 01-23-2022 ambulatoryRosskiesha RothFacility:9346Start: 81-84-2372Jmgmnuqwq encounter Kalli Simons MD Work Phone: [phone] InstituteComment on above:Follow Up Phone Call (All clear )Start: 59-93-2658Iplojnzno encounterPeterson Gonsalez MD Work Phone: UrologyComment on above:Appointment ConfirmationStart: 01-08-2022 End: 48-90-7703Unswuddcui and management of inpatientDO Juliette [place] Work Phone: [facility] [place] [facility] Start: 01-07-2022 End: 72-87-3030Swcnag Andres Kruger MD Work Phone: General SurgeryStart: 72-18-6164Salwjmoip encounter Peterson Gonsalez MD Work Phone: UrologyComment on above:AppointmentStart: 65-01-0642Ep RenewalCaitlin Kimberlyn HIGHTOWER Work Phone: [phone]-Mrhkhrkxletjz-[facility] [employer] [address] Work Phone: start: 04-37-5969Whhonqdwf encounterPeterson Gonsalez MD Work Phone: UrologyComment on above:Patient UpdateStart: 76-36-0291Qciavnwnz encounterPeterson Gonsalez MD Work Phone: UrologyComment on above:OrdersStart: 12-14-2021 Telephone encounterPeterson Gonsalez MD Work Phone: UrologyComment on above:Results; Patient UpdateStart: 12-01-2021 End: 51-01-3300Zumcehomjf hospital visit by physicianCt Prep [facility] LoraRadiology Comment on above:Canceled (CC cx: Equipment, Prep, Appropriateness)Start: 11-30-2021 End: 78-06-1338Eqmifk Meme Gonsalez MD Work Phone: UrologyComment on above:Malignant neoplasm of urinary bladder, unspecified site (HCC) (Primary Dx)APPOINTMENT CANCELLED (Primary Dx) Start: 35-07-0169Qcknev Meme Gonsalez MD Work Phone: UrologyComment on above:ResultsStart: 03-68-6753Fiwpvv outpatient visit 25 minutesCaitlin Kimberlyn HIGHTOWER Work Phone: [phone]-ZkaofqwqsjmgpDUNC[facility] [employer] [address] Work Phone: start: 10-25-2021 End: 50-55-0262Dtbgybzfvb hospital visit by physicianArrival Time Radiology Work Phone: Radiology Pet CTComment on above:History of bladder cancer [Z85.51]Start: 60-79-1288Rsbswiahc encounterChelsie Barrow RNRadiology Pet CTComment on above:Lab OrdersStart: 10-11-2021 End: 52-98-2592Wefrnqo encounter Sindy Gonsalez MD Work Phone: UrologyComment on above:History of bladder cancer (Primary Dx); Abdominal pain, unspecified abdominal locationStart: 48-67-7156Lunicsbys encounterPeterson Gonsalez MD Work Phone: UrologyComment on above:Sooner appointment request Start: 09-21-2021 End: 11-84-2069Srudrjhomf hospital visit by Cathryn Mendez MD Work Phone: Ambulatory SurgeryComment on above:Nausea and vomiting, unspecified vomiting type [R11.2]Start: 08-23-2021 End: 31-12-9068Rdlrnsu encounter procedureJose Schmid APRN.SUPERVISOR NET MAKING Work Phone: GastroenterologyComment on above:Encounter for screening for malignant neoplasm of colon (Primary Dx); Nausea and vomiting, unspecified vomiting type; Early satiety; NauseaStart: 39-25-3466Zfqtmm outpatient visit 25 minutesCaitlin Omoregie PA-C Work Phone: [phone]-Valksmlaxyfpv-[facility] [address] Work Phone: start: 47-39-8877Wlbkwdl encounter procedureCaitlin Omoregie PA-C Work Phone: [phone]-Hirmydjyvpmxr-[facility] [employer] [address] Work Phone: start: 03-16-2021 End: 64-23-3708Fkfxbthsrq hospital visit by physicianArrival Time Radiology Work Phone: Radiology Pet CTComment on above:Malignant neoplasm of urinary bladder, unspecified site (HCC) [C67.9]Start: 02-04-2021 End: 77-14-8363Nlreqgykg Sofi Gonsalez MD Work Phone: UrologyComment on above:AppointmentRequest Outside Medical RecordsStart: 48-13-2040Eetxhi outpatient visit 25 minutesCaitlin Omoregie PA-C Work Phone: [phone]-Wrswwswzedqle-[facility] [place] [address] Work Phone: start: 06-91-9479Qssbusk encounter procedureCaitlin Omoregie PA-C Work Phone: [phone]-Jqnkfhrrai-[address] Work Phone: Start: 31-85-8774VJRJJAqyymqz Kimberlyn HIGHTOWER Work Phone: [phone]-Xyhqnmtqgokqp-[facility] [address] Work Phone: start: 24-78-6722Igtjnda encounter procedureCaitlin NkxcmtjqBF-Dyjghkhrwwfca-JOW [address] Work Phone: start: 06-13-2019 End: 51-85-4216Stvxbfx encounter procedureVETERANS HEALTH AD[facility]IST[facility] PHOENIXCIMercy [facility] Start: 06-13-2019 End: 06-86-0284Ywlfaisgrx hospital visit by physicianLuther Austin WHZ LaboratoryComment on above:Right wrist painStart: 56-49-4976Zssnskw encounter procedureCaitlin ImjzljnpER-Qbzhevegphtxs-HHQ [place] [address] Work Phone: start: 37-13-8589Eadjaob encounter procedureCaitlin IjclcufrQK-Acvllowmokwev-HLE [place] [address] Work Phone: Procedures DateProcedureProcedure DetailPerforming ClinicianStart: 92-06-0494Mhuhrj-up visitFollow UpMARIELLE SEYBERTStart: 63-80-6747Ejfjdu-up visitFollow UpCARLOS ISADAStart: 17-96-5246Uv abdomen & pelvis w/o contrst 1/> body reNicole Dennison BACK UP SCAN COORDINATOR.SUPERVISOR NET MAKING Work Phone: Start: 06-88-1867Pgnoi metabolic panel calcium total Molly Dennison BACK UP SCAN COORDINATOR.SUPERVISOR NET MAKING Work Phone: Start: 72-78-6709Fbnxqfwt screenMARCIA BRAUNComment on above:Order Comment: Specimen Type: BLOOD SPECIMENOrdering Facility: [facility] Address:[address] [id number] By: #### TSCRandy ####TOY BLOOD BANKCLIA [id number] [address] AMERICAStart: 50-46-4268Nx head/brain w/o contrast materialMarlene CRISTINA-Clemencia Work Phone: Start: 67-17-7296Woxom cultureBenjamin Ball DO Work Phone: Start: 01-87-6958Lsgmhax microbial cultureBenjamin Ball DO Work Phone: Start: 84-86-4175Uqftdcajz microbial cultureBenjamin Ball DO Work Phone: Start: 54-04-6311Eyed stain microscopyBenjamin Ball DO Work Phone: Start: 33-65-1815DA of abdominal aorta with contrast Juliette Ball DO Work Phone: Start: 17-37-1115Pq head/brain w/o contrast material Marlene CRISTINA-Clemencia Work Phone: Start: 61-65-8021Iwmrli scan of lower limb veins Juliette Ball DO Work Phone: Start: 75-23-9685Yabnx volume recorder pneumoplethysmographyBenjamin Ball DO Work Phone: Start: 64-27-4190E-ray of left footBenjamin Ball DO Work Phone: Start: 30-34-0277Qpgqgmk microbial cultureBenjamin Ball DO Work Phone: Start: 90-26-7446Gxadtzqme microbial cultureBenjamin Ball DO Work Phone: Start: 60-16-0500Zxno stain microscopyBenjamin Ball DO Work Phone: Start: 53-81-4066Rt head/brain w/o contrast material Marlene Cordero PA-C Work Phone: Start: 77-41-4321Yhqwhyalet A1c/Hemoglobin.total in BloodRuddy Gupta MD Work Phone: Start: 00-52-8310Td head/brain w/o contrast material Marlene Cordero PA-C Work Phone: Start: 65-46-9111Wm head/brain w/o contrast material Marlene Consuelo HIGHTOWER Work Phone: Start: 61-19-2558Jvkdg count complete auto&auto difrntl wbcAguila Giraldo MD Work Phone: Start: 70-29-6283O-reactive proteinSbhargav Sr BACK UP SCAN COORDINATOR.SUPERVISOR NET MAKING Work Phone: Start: 76-23-8154Qywij count complete auto&auto difrntl Mery Giraldo MD Work Phone: Start: 74-51-6590W-reactive proteinSbhargav Sr BACK UP SCAN COORDINATOR.SUPERVISOR NET MAKING Work Phone: Start: 00-18-2552So head/brain w/o contrast material Melva-Leonarda MorrisonStart: 58-84-0083Uvhhb count complete auto&auto difrntl wbc Aguila Giraldo MD Work Phone: Start: 61-37-6633T-reactive proteinSbhargav Sr BACK UP SCAN COORDINATOR.SUPERVISOR NET MAKING Work Phone: Start: 61-50-4816Vtgbj count complete auto&auto difrntl Mery Giraldo MD Work Phone: Start: 73-59-8954N-reactive proteinSbhargav Sr BACK UP SCAN COORDINATOR.SUPERVISOR NET MAKING Work Phone: Start: 77-93-9087Kpcuc metabolic panel calcium total Aguila Giraldo MD Work Phone: Start: 10-12-2023H/O: surgeryS/P exploratory laparotomyCaleb Consuelo HIGHTOWER Work Phone: Start: 85-08-5047PHMWGUCP NON-GYNNicole Madhavi BACK UP SCAN COORDINATOR.SUPERVISOR NET MAKING Work Phone: Start: 29-31-3666Nueojqpdr Comparison study - date and timeDcyn Figueroa MD Work Phone: Start: 60-89-9886Cftuavw blood reagent stripDeven Figueroa MD Other Phone: Start: 38-97-5554Scqru count complete automatedAli Christel LOPEZ Other Phone: Start: 41-89-1839Elgcndi blood reagent stripDaniel Figueroa MD Other Phone: Start: 07-12-2023 End: 80-04-2863Jpdguje blood reagent stripDaniel Figueroa MD Other Phone: Start: 28-77-2748Xqrpo count complete automatedAli Christel LOPEZ Other Phone: Start: 07-11-2023 End: 35-82-7133Nreiime blood reagent stripDaniel Figueroa MD Other Phone: Start: 07-11-2023 End: 57-16-4395Axuloox blood reagent stripDaniel Figueroa MD Other Phone: Start: 56-58-4261Gudirtn blood reagent stripDaniel Figueroa MD Other Phone: Start: 08-25-3218Vghmfuf blood reagent stripDaniel Figueroa MD Other Phone: Start: 59-18-2350Xbsbkkd blood reagent stripDaniel Figueroa MD Other Phone: Start: 21-04-3532Herbqcl blood reagent stripDaniel Figueroa MD Other Phone: Start: 07-11-2023 End: 76-00-8920Xlfry count complete automatedAli Christel LOPEZ Other Phone: Start: 24-78-8398Zyyhc of lactateAditya Sallie LOPEZ Other Phone: Start: 41-89-5572Ixnbttj blood reagent stripDaniel Figueroa MD Other Phone: Start: 05-64-5245Acgwcqk blood reagent stripDaniel Figueroa MD Other Phone: Start: 17-52-0894Xkrtd gases any combination ph pco2 po2 co2 puc7EnzjxmpSaige Dang DO Other Phone: start: 07-10-2023 End: 62-36-7653Mvyyxhw blood reagent stripDaniel Figueroa MD Other Phone: Start: 07-10-2023 End: 38-68-0691Baavx of lactateDiann Nguyen MD Other Phone: [phone]: 07-10-2023 End: 32-80-2634Joyqc gases any combination ph pco2 po2 co2 qqi4Muqj Patrick LOPEZ Other Phone: Start: 07-10-2023 End: 42-86-3209Rkpczvyzfmcitwzvg measurementDiann Nguyen MD Other Phone: Start: 07-10-2023 End: 45-00-7363UCFPBHIU, SHUNTDaniel Figueroa MD Other Phone: [phone]: 94-81-7190Lgwxsck blood reagent stripDaniel Figueroa MD Other Phone: Start: 52-47-1115Lzjqlbwspx glycosylated v9hKqpqvKalli Weinstein DO Other Phone: [phone]: 39-84-8563Nqcyzql blood reagent stripDaniel Figueroa MD Other Phone: Start: 33-83-3425Vvvfukn blood reagent stripDaniel Figueroa MD Other Phone: Start: 72-36-4085Gmqvhdh blood reagent stripDnaiel Figueroa MD Other Phone: Start: 85-30-2493Hcewq typing, ABO, Rho(D) and RBC antibody screeningIsaías Hardin MD Other Phone: [phone]: 45-74-3389Xecnojr blood reagent stripDaniel Figueroa MD Other Phone: Start: 45-44-6231Lqocd of Lazaro Kearney MD Other Phone: Start: 19-46-3284Fe head/brain w/o contrast material Richard Navarro PA-C Other Phone: [phone]: 41-37-7986Ymflkfn blood reagent stripDaniel Figureoa MD Other Phone: [phone]: 07-08-2023 End: 73-03-0655Wzdgzpq blood reagent stripDaniel Figueroa MD Other Phone: [phone]: 88-38-1181Rshyxpv blood reagent stripDaniel Figueroa MD Other Phone: [phone]: 87-16-2943Delhign blood reagent stripDaniel Figueroa MD Other Phone: [phone]: 30-43-1949Ttnoh of Lazaro Kearney MD Other Phone: [phone]: 96-59-6860Dnpcqlw blood reagent stripDaniel Figueroa MD Other Phone: [phone]: 59-80-6464Weuaebu blood reagent stripDaniel Figueroa MD Other Phone: [phone]: 82-56-3407Wtzbijv blood reagent stripDaniel Figueroa MD Other Phone: [phone]: 07-08-3396Dyqixdk blood reagent stripDaniel Figueroa MD Other Phone: Start: 14-89-5555Hshlz of Lazaro Kearney MD Other Phone: [phone]: 99-39-2612Kebdoxe blood reagent stripDaniel Figueroa MD Other Phone: [phone]: 92-04-3573Qepfqaj blood reagent stripDaniel Figueroa MD Other Phone: [phone]: 91-67-2270Nizxwdj blood reagent stripDaniel Figueroa MD Other Phone: [phone]: 25-55-0552Lelgsae blood reagent stripDaniel Figueroa MD Other Phone: [phone]: 00-08-7988Ffawi of Lazaro Kearney MD Other Phone: [phone]: 07-05-2023 End: 25-75-9248Wokbvly blood reagent stripDaniel Figueroa MD Other Phone: [phone]: 07-05-2023 End: 89-40-0912Sksteax blood reagent stripDaniel Figueroa MD Other Phone: [phone]: 07-05-2023 End: 27-50-7353Fhugw count complete automatedJacob Cruzito DO Other Phone: [phone]: 07-05-2023 End: 90-04-8550Vontwzhgdmx of packed red blood cellsBreanna Bauman MD Other Phone: [phone]: 89-54-3644Ns head/brain w/o contrast material Nan Iverson MD Other Phone: [phone]: 07-05-2023 End: 13-25-7408Jhfddoi blood reagent stripKyrie Stovall MD Other Phone: [phone]: 71-35-3618Yfxlv typing, ABO, Rho(D) and RBC antibody screeningBreanna Bauman MD Other Phone: start: 54-73-7796ZGX leukocytes reducedBreanna Bauman MD Other Phone: start: 87-67-0798GGL BLOOD CELL UNIT STATUSBreanna Bauman MD Other Phone: Qtart: 07-05-2023 End: 78-36-2389Rlggh of magnesiumKemi Kearney MD Other Phone: [phone]: 13-74-2586Qakojhf blood reagent stripPablair Stovall MD Other Phone: [phone]: 26-49-2362Uinlntl blood reagent stripKyrie Sotvall MD Other Phone: start: 07-04-2023 End: 05-81-6432Wxjop count complete automatedNan Iverson MD Other Phone: start: 40-34-2923RGC BLOOD CELL COMPONENTNan Iverson MD Other Phone: start: 48-60-6142Uvxmf of Lazaro Kearney MD Other Phone: Start: 22-67-0330Puzchcx blood reagent stripKyrie Stovall MD Other Phone: [phone]: 07-03-2023 End: 31-33-4876Ijswjiq blood reagent Rina Stovall MD Other Phone: [phone]: 07-03-2023 End: 05-90-3233Eqvdmqn blood reagent stripKyrie Stovall MD Other Phone: [phone]: 88-83-2486XNKCS TUBEKyrie Stovall MD Other Phone: start: 15-18-4219HZDUKOXJ TOP TUBE, BLOODKyrie Stovall MD Other Phone: [phone]: 07-03-2023 End: 24-90-0816Pubhqlv blood reagent stripKyrie Stovall MD Other Phone: start: 34-46-4607Zqektcv blood reagent stripKyrie Stovall MD Other Phone: start: 47-71-9158Cjkuhcg blood reagent stripKyrie Stovall MD Other Phone: start: 36-25-4763Ygxdgie blood reagent Rina Stovall MD Other Phone: [phone]: 07-03-2023 End: 95-07-7446Rmdzi of Lazaro Kearney MD Other Phone: Start: 01-52-4528Kgosxlm blood reagent stripKyrie Stovall MD Other Phone: start: 47-76-2417Salvqje blood reagent stripKyrie Stovall MD Other Phone: start: 79-87-9709Vnhbceasxp examination skull 4/> viewsJacob Cruzito DO Other Phone: [phone]: 70-49-9514Wkacltz blood reagent stripPatrick Maluso MD Other Phone: [phone]: 07-02-2023 End: 02-34-1376Wvebokc blood reagent Rina Stovall MD Other Phone: [phone]: 74-21-3451Uklmd of Lazaro Kearney MD Other Phone: [phone]: 09-97-9290Fzmoyth blood reagent stripBrooks Martinez MD Other Phone: Dtart: 69-96-5463Ebaueyo blood reagent stripVankelly Martinez MD Other Phone: [phone]: 31-47-5009Erffawm blood reagent stripVankelly Martinez MD Other Phone: [phone]: 07-01-2023 End: 66-67-2682Uipuaop blood reagent stripVankelly Martinez MD Other Phone: [phone]: 55-39-0428Yluupok blood reagent stripBrooks Martinez MD Other Phone: [phone]: 07-01-4512Zwkmtki blood reagent stripBrooks Martinez MD Other Phone: [phone]: 35-64-0486Hxnbw of Lazaro Kearney MD Other Phone: [phone]: 51-29-6056Bppirbb blood reagent stripBrooks Martinez MD Other Phone: [phone]: 21-02-4094Nlreysg blood reagent stripBrooks Martinez MD Other Phone: [phone]: 72-71-3663Myvhfke blood reagent stripVankelly Martinez MD Other Phone: [phone]: 26-42-7981Dkrymam blood reagent stripBrooks Martinez MD Other Phone: [phone]: 80-73-5996Zycnm of Fang Kearney MD Other Phone: [phone]: 82-43-2346Ajrenyz function Addis Gaviria MD Other Phone: [phone]: 80-68-7688Lcoizos blood reagent Nathan Martinez MD Other Phone: [phone]: 42-26-5665Gabenbn blood reagent Nathan Martinez MD Other Phone: [phone]: 06-29-2023 End: 57-84-3943Osrumgp blood reagent Nathan Martinez MD Other Phone: [phone]: 00-48-4512Wwvyszo blood reagent Nathan Martinez MD Other Phone: [phone]: 05-19-7591Etkan of Fang Kearney MD Other Phone: [phone]: 74-09-0952Bgmuuno blood reagent stripBrooks Martinez MD Other Phone: [phone]: 90-13-8962Idvpizo blood reagent Nathan Martinez MD Other Phone: [phone]: 71-92-9012Hhio count misc body fluids w/differential countHeather Wirtz PA-C Other Phone: [phone]: 06-28-2023 End: 79-04-8162Iub bact xcpt urine blood/stool aerobic isolHeather Wirtz PA-C Other Phone: [phone]: 33-83-5675Xtlbfsb body fluid other than blood Concepción Wirtz PA-C Other Phone: [phone]: 26-43-3955TX PICC INSERT ADULT RN (LYNNETTE)Lam East DO Other Phone: [phone]: 13-16-5316Ge head/brain w/o contrast material Concepción Wirtz PA-C Other Phone: [phone]: 68-53-1254Minsjtw blood reagent Nathan Martinez MD Other Phone: [phone]: 14-40-9243Vbeyhaa blood reagent Nathan Martinez MD Other Phone: [phone]: 66-30-8242Xzart of Fang Kearney MD Other Phone: Start: 06-27-2023 End: 45-23-5128Sflbh of Ethel Bauman MD Other Phone: start: 51-57-3197Qrlkg of Andre Bauman MD Other Phone: start: 04-56-3804Ubqnx of lactateJonathan Chrissy CAA Other Phone: Start: 89-74-3154Yozht gases any combination ph pco2 po2 co2 uxl5Cgcfqhdl Chrissy CAA Other Phone: Start: 83-26-1947Vxvwmjtdaaabcddru measurement Vasquez Chrissy CAA Other Phone: Start: 81-67-2063Duxbn of lactateJonathan Chrissy CAA Other Phone: Start: 48-78-4209Gllnv gases any combination ph pco2 po2 co2 fcu4Hgwxgimi Chrissy CAA Other Phone: Start: 99-02-8164Mbtkctttrrvkvwucj measurement Vasquez Chrissy CAA Other Phone: Start: 51-65-9368Gzlap v surg pathology gross&microscopic examBrooks Martinez MD Other Phone: start: 91-75-5225BEO BLOOD CELL COMPONENTRivas Prasad MD Other Phone: Start: 97-95-9104HFP BLOOD CELL UNIT STATUSRivas Prasad MD Other Phone: Start: 06-27-2023 End: 96-73-3722Nnmav of lactateAlexandra Kwit-Christ CAA Other Phone: Start: 06-27-2023 End: 92-17-6431Ysefs gases any combination ph pco2 po2 co2 psb4Vgzmhpoim Kwit- Christ CAA Other Phone: Start: 06-27-2023 End: 75-74-9198Dezuewfpfbfmttolb measurementAlexandra Kwit-Christ CAA Other Phone: Start: 81-92-8136Eediivz blood reagent stripBrooks Martinez MD Other Phone: start: 96-90-4162Aaqpyzf blood reagent stripBrooks Martinez MD Other Phone: start: 06-27-2023 End: 95-30-1262Cpouegn blood reagent stripBrooks Martinez MD Other Phone: start: 14-84-8321Wbgergcsln exam abdomen 1 viewShanda Brown MD Other Phone: Start: 63-76-4033Bgzkfni blood reagent stripBrooks Martinez MD Other Phone: start: 06-27-2023 End: 69-85-9727Ojfpc of Fang Kearney MD Other Phone: Start: 64-33-7674Eqhzdrk blood reagent stripBrooks Martinez MD Other Phone: start: 35-04-4604Gkkorrrtdq exam abdomen 1 viewKemi Kearney MD Other Phone: Start: 38-64-7311Lobguiebht exam abdomen 1 view Eva Mcgarry MD Other Phone: Start: 65-78-8412Xevbz of Montse Mcgarry MD Other Phone: Start: 31-70-4696Ouhbibuotu exam chest single Hank Kearney MD Other Phone: Start: 06-26-2023 End: 89-22-6585Iyqzs of Fang Kearney MD Other Phone: Start: 62-62-4401Zdkkt cultureTang Suarez MD Other Phone: Start: 77-79-5552Ejfls dip stick/tablet rgnt auto w/o microscopyTang Suarez MD Other Phone: Start: 66-24-0064Rpeqd count smear mcrscp w/mnl difrntl wbc countJason Kleppel MD Other Phone: Start: 76-60-6070Emagh of Michaelle Suarez MD Other Phone: Start: 96-03-0148Lffhh of Michaelle Suarez MD Other Phone: Start: 45-11-4856Izrnmeruxw exam chest single view John Huang MD Other Phone: Start: 21-57-2687Dtacv typing serologic aboJohn Huang MD Other Phone: Start: 08-36-5593Rqpflhywg Comparison study - date and timeJohn Huang MD Other Phone: Start: 85-27-6739Azf routine ecg w/least 12 lds trcg only w/o i&rBlalori Huang MD Other Phone: Start: 82-54-4294Dahrf typing, ABO, Rho(D) and RBC antibody screeningJohn Huang MD Other Phone: Start: 73-31-0515Hjajukyoaxihix time partial plasma/whole bloodJohn Huang MD Other Phone: Start: 76-55-9855Ffjbrynx identified in Urine by CultureStart: 89-99-7774Mxnjrmagmp examination knee 1/2 Angie Monge PA-C Work Phone: Start: 96-52-5142Ge abdomen & pelvis w/o contrst 1/> body Ed Gonsalez MD Work Phone: Start: 61-60-8748Bw thorax w/contrast Harpal Gonsalez MD Work Phone: Start: 05-09-2023 End: 47-18-9513Xzoehmox magnetic resonance procedureJamie Mccarty MD Work Phone: Start: 41-40-9528Kc abdomen & pelvis w/o contrst 1/> body Ed Gonsalez MD Work Phone: Start: 09-09-0213Sc thorax w/contrast Harpal Gonsalez MD Work Phone: Start: 10-23-9395Kq head/brain w/o contrast material Marlene Cordero PA-C Work Phone: [phone]: 79-64-8086Dr head/brain w/o contrast material Marlene Cordero PA-C Work Phone: [phone]: 20-36-8087Et head/brain w/o contrast material Maris Campos MD Work Phone: Start: 86-53-1186TY of head without contrastDO Juliette Berumen Work Phone: Start: 05-81-8066Wlqphpmd tomography of abdomen and pelvis with contrastDO Juliette Berumen Work Phone: Start: 37-41-6463Ox abdomen & pelvis w/contrast Harpal Gonsalez MD Work Phone: Start: 86-00-8026ZBMOBKTQQQ Jodie Gonsalez MD Work Phone: Start: 65-99-6730Hsbh bld gluc mntr dev cleared fda spec home useMyrna Mendez MD Work Phone: Start: 84-56-9029Vgxbl ca scrn not hi rsk indJose Weldonantis BACK UP SCAN COORDINATOR.SUPERVISOR NET MAKING Work Phone: Start: 95-99-3112Uxwryidryokawitqhgqmftvajs transoral diagnosticJose Langstons BACK UP SCAN COORDINATOR.SUPERVISOR NET MAKING Work Phone: Start: 32-52-4527EultnawfyjuMgdrq Lisi MD Work Phone: Start: 04-16-2021H/O: surgeryHistory of ileal conduit Start: 67-17-9564Yt thorax w/o contrast Harpal Gonsalez MD Work Phone: Start: 69-57-5675Gswxk wrist complete minimum 3 views KALLI SIMONSStart: hydroxy includes fractions if performedMARMELE BRAUNStart: 16-05-8767Seguewhbgb glycosylated s8rVXYUQX [facility]ENTERStart: 06-13-2019 Radex wrist complete minimum 3 viewsKalli Simons Work Phone: Start: hydroxy includes fractions if performedCailin L. Omoregie Work Phone: Start: 81-10-0301Hbhvjttlxi glycosylated u3nPrbgfs L. Omoregie Work Phone: H/O: surgeryS/P exploratory laparotomyDion Montez MD Work Phone: H/O: surgeryS/P exploratory laparotomyDion Montez MD Work Phone: H/O: surgeryS/P exploratory laparotomyDion Montez MD Work Phone: H/O: surgeryHistory of ileal conduitDO Unfold Work Phone: SARS Antigen (LFIA)DO Unfold Work Phone: Urine cultureDO Unfold Work Phone: Plan of Treatment DateCare ActivityDetailAuthorStart: 38-13-0270LjagaoakjsfHPIIPUQLKAVYygdmxjko ClinicStart: 10-17-7855WPGNONBPHH CANCER SCREENINGCOLORECTAL CANCER SCREENING [facility] Camp[facility]art: 26-40-9591Dxihkirgl for malignant neoplasm of colon [facility] Campustart: 12-23-2025 End: 94-99-0594XAIFF ONLY - DIAGNOSTIC OU (BOTH EYES)ASCAN ONLY - DIAGNOSTIC OU (BOTH EYES) OPHT Imaging Routine Combined forms of age-related cataract of right eye Combined forms of age-related cataract of left eye Expected: 12/23/2025, Expires: 06/16/2026[facility] HospitalComment on above:Expected: 12/23/2025, Expires: 06/16/2026Start: 68-27-7589Agdbsmsj screeningDilated Retinal Exam [facility] [place] Campustart: 12-23-2025 End: 07-83-7772JGP BIOMETRY W/ IOL CALC OU (BOTH EYES)IOL BIOMETRY W/ IOL CALC OU (BOTH EYES) OPHT Imaging Routine Combined forms of age-related cataractof right eye Combined forms of age-related cataract of left eye Expected: 12/23/2025, Expires: 06/16/2026[facility] HospitalComment on above:Expected: 12/23/2025, Expires: 06/16/2026Start: 70-02-1050WG Controlled (<130/80)BP Controlled (<130/80)[facility] [place] Camp[facility]art: 83-26-3303NP Controlled (<130/80)BP Controlled (<130/80)[facility] [place] [facility]: 78-26-8239GG Controlled (<130/80)BP Controlled (<130/80)[facility] [place] Camp[facility]: 05-14-2025 End: 02-29-4407Ggzetfm encounter /29/2026 10:15 AM EST Office Visit [facility] Tumor [place] [address] [place] [address] [place] [address] [place] [address] [facility] Comment on above:Next available New patientStart: 05-05-2025 End: 11-84-0961huxwseakvf23/20/2026 12:00 PM EST [facility] Urology [address] [address] Peterson Gonsalez MD [address] [place] [address] 6 monthvv - h/o bladder cancer per cc chartUrologyComment on above:6 month vv - h/o bladder cancer per cc chartStart: 69-22-0495XK Controlled (<130/80)BP Controlled (<130/80)[facility] [place] Campustart: 04-17-2025 End: 76-29-5593NX Chest WO contrastCT CHEST WO IVCON Radiology Routine History of bladder cancer Pulmonary nodule Expected: 04/17/2025, Expires: 11/14/2025 [facility] HospitalComment on above:Expected: 04/17/2025, Expires: 11/14/2025Start: 04-17-2025 End: 74-63-1621LW Kidney - bilateral and Urinary bladderUS KIDNEY/BLADDER Radiology Routine Hydronephrosis, unspecified hydronephrosis type Expected: 04/17/2025, Expires: 11/14/2025[facility] Work Phone: comment on above:Expected: 04/17/2025, Expires: 11/14/2025Start: 09-85-4254TG Controlled (<130/80)BP Controlled (<130/80) [facility] [place] Campustart: 04-02-2025 End: 36-57-3200Pzpqnwt encounter hfgtrnrii27/18/2025 9:30 AM EST Office Visit [facility] Brain Tumor [place] [address] [place] [address] Susanna Carranza PA-C [address] [place], [place] [id number] Next [facility] Tumor [place]ardComment on above:Next available New patientStart: 98-97-5301Nuxkoitgn B surface antibody levelLDL CholesterolSt. Mary's Medical Center, [place] Campustart: 03-10-2025 End: 25-34-4384Tsacscf encounter ahlzkwkec78/25/2025 11:40 AM EST Office Visit [facility] [address] [place] [address] Aashish Monge PA-C [address] [place] [address] Return in about 3 months (around 03/13/2025).Check out comments:Please schedule follow-up with Aashish Monge PA-C [facility]edicOur Lady of Mercy HospitalComment on above:Return in about 3 months (around 03/13/2025).Check out comments:Please schedule follow-up with Aashish Monge PA-C Start: 56-52-4108Vbakjrayxo A1c asersqqnhzlQsN6TSfrqcvhac ClinicStart: 32-77-9408AV Controlled (<130/80)BP Controlled (<130/80)[facility] [place] [facility]: 02-12-2025 End: 91-30-2856Xxmyegs encounter zbylzfbxu29/30/2025 12:30 PM EDT Office Visit OPHT Ophthalmology [address] [place] [address] Ulisses Kauffman MD [address] [place] [address] Diagn[facility] [address] [address] retina consultOphthalmologyComment on above:retina consultStart: 29-47-8975CA Controlled (<130/80)BP Controlled (<130/80)[facility] [place] Campustart: 01-28-2025 End: 06-34-0679Jvjhxinwr to same day surgery voxfrx1201/28/2025 9:40 AM EDT - 01/28/2025 10:15 AM EDT Surgery Ambulatory Surgery [address] [place] [address] Astrid Nava MD [address] [facility] [place] [address] PHACOEMULSIFICATION CATARACT ANTERIOR IMPLANT INTRAOCULAR LENS W/O ENDOSCOPIC CYCLOPHOTOCOAGULATION Ambulatory SurgeryComment on above:PHACOEMULSIFICATION CATARACT ANTERIOR IMPLANT INTRAOCULAR LENS W/O ENDOSCOPIC CYCLOPHOTOCOAGULATIONStart: 01-28-2025 End: 31-86-4706Qof bmtry prtl coher intrfrmtry io lens pwr calOPHTHALMIC BIOMETRY BY PARTIAL COHERENCE INTERFEROMETRY W/INTRAOCULAR LENS POWER CALCULATION Combined forms of age-related cataract of left eye 01/28/2025 9:40 AM EDTMC ASC LORAINStart: 63-98-6147Rmckuphqpd hospital visit by physician 01/28/2025 9:40 AM EDT Hospital Encounter Ambulatory Surgery [address] [place] [address] Astrid Nava MD [address] [facility] [place] [address] Combined forms of age- related cataract of left eye [H25.812]Ambulatory SurgeryComment on above: Combined forms of age-related cataract of left eye [H25.812]Start: 01-28-2025 End: 50-45-3437Eigybi [facility] rmvl insj io lens prosth w/o ecpPHACOEMULSIFICATION CATARACT ANTERIOR IMPLANT INTRAOCULAR LENS W/O ENDOSCOPIC CYCLOPHOTOCOAGULATION Combined forms of age-related cataract of left eye 01/28/2025 9:40 [facility] [place]AINStart: 01-14-2025 End: 98-81-0134Hvuvdwyoi to same day surgery uouvsj5301/14/2025 12:55 PM EDT - 01/14/2025 1:30 PM EDT Surgery Ambulatory Surgery [address] [place] [address] Astrid Nava MD [address] [facility] [place] [address] PHACOEMULSIFICATION CATARACT IMPLANT INTRAOCULAR LENS W/O ENDOSCOPICCYCLOPHOTOCOAGULATIONAmbulatory Surgery Comment on above:PHACOEMULSIFICATION CATARACT IMPLANT INTRAOCULAR LENS W/O ENDOSCOPIC CYCLOPHOTOCOAGULATIONStart: 01-14-2025 End: 88-49-0939Lqw bmtry prtl coher intrfrmtry io lens pwr calOPHTHALMIC BIOMETRY BY PARTIAL COHERENCE INTERFEROMETRY W/INTRAOCULAR LENS POWER CALCULATION Combined forms of age-related cataract of right eye 01/14/2025 12:55 PM [facility] ASC [place]AINStart: 38-96-2976Zheollxhxf hospital visit by physician 01/14/2025 12:55 PM EDT Hospital Encounter Ambulatory Surgery [address] [place] [address] Astrid Nava MD [address] [facility] [place] [address] 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 [H25.811]Ambulatory SurgeryComment on above: Combined forms of age-related cataract of right eye [H25.811]Start: 01-14-2025 End: 37-04-4891Eivnpd ctrc rmvl insj io lens prosth w/o ecpPHACOEMULSIFICATION CATARACT IMPLANT INTRAOCULAR LENS W/O ENDOSCOPIC CYCLOPHOTOCOAGULATION Combined forms of age-related cataract of right eye 01/14/2025 12:55 PM EDTMC ASC [place] Start: 68-65-2567CZ Controlled (<130/80)BP Controlled (<130/80)[facility] Start: 01-06-2025 End: 94-25-0177Yuuupay encounter oawsryreg21/23/2025 3:00 PM EDT Office Visit OPHT Ophthalmology [address] [place] [address] CATARACT SURGERY RIGHT THEN LEFT MORLEYOphthalmologyComment on above:CATARACT SURGERY RIGHT THEN LEFT MORLEYStart: 01-06-2025 End: 94-31-7492Lixyapvks to same day surgery rfjaga2401/06/2025 2:20 PM EDT PAT Pre Anesthesia [address] [place] [address] 1, Pacc [place] [address] [place] [address] CATARACT SURGERY RIGHT THENLEFT MORLEYPre AnesthesiaComment on above:CATARACT SURGERY RIGHT THEN LEFT MORLEYStart: 12-26-2024 End: 27-18-2630Yenkcqv encounter hgptdmbuj66/12/2025 2:30 PM EDT Office Visit Rehab Medicine [facility] [address] [place] [address] Noel Daniels MD [address] [place] [address] BOTOXRehab Medicine [facility] Medical Centeromment on above:BOTOXStart: 12-23-2024 End: 81-62-9130Lximrgz encounter ainhlrjhn87/09/2025 2:30 PM EDT Office Visit OPHT Ophthalmology [address] [place] [address] Astrid Nava MD [address] [place] [address] CAT EVAL (referral scanned)OphthalmologyComment on above:CAT EVAL (referral scanned)Start: 36-78-1158MH Controlled (<130/80)BP Controlled (<130/80)[facility] Camp[facility]art: 12-16-2024 End: 40-71-1648Pndjnby encounter fsljohlst95/02/2025 1:45 PM EDT Office Visit Rehab [facility] [address] [place] [address] Noel Daniels MD [address] [place], [place] [id number] BOTOXRehab [facility] Johnson Hospitalomment on above:BOTOXStart: 27-89-1548Hchtgxqoj vaccinationMer[facility] Health [facility] Start: 12-11-2024 End: 68-44-9880Bvkzduv encounter procedureRadiologyComment on above:Left femur XRPost op Left femur Sx 08/23/24XR FEMUR GENERAL 2V AP/LAT LEFT[xr then room] Start: 12-04-2024 End: 49-69-4414cwxogoelfb69/21/2025 5:00 PM EDT Distance Health Neurology [facility] [address] [place] [address] Ani Centeno PA-C [address] [place], [place] [id number] Talk about spasticityNeurology [facility] Trophy Clubomment on above:Talk about spasticityStart: 20-89-1689AY Controlled (<130/80)BP Controlled (<130/80)[facility] Campustart: 30-00-1144QI Controlled (<130/80)BP Controlled (<130/80)[facility]art: 11-11-2024 End: 91-48-3384Sgokhdu encounter lbicakpre93/29/2025 2:30 PM EDT Office Visit Rehab [facility] [address] [place] [address] Noel Daniels MD [address] [place] [address] [place], [place] [id number] BOTOXRehab [facility] FHCComment on above:BOTOXStart: 05-85-0422NW Controlled (<130/80)BP Controlled (<130/80)[facility] Campustart: 10-29-2024 End: 32-80-4475Jnrecjw encounter dpmoojisj18/16/2025 10:30 AM EDT Office Visit Infectious Disease [address] [id number] Jamie Mccarty MD [address] [place] [address] fungal meningitis follow upInfectious DiseaseComment on above:fungal meningitis follow upStart: 10-28-2024 End: 27-52-9865Pcavrli encounter wmbyzgrmp16/15/2025 1:45 PM EDT [facility] [address] [place] [address] Noel Daniels MD [address] [place] [address] botoxHca [facility] Healthcare [facility]roe FHCComment on above:botoxStart: 10-22-2024 End: 50-46-8869Ronkzjj encounter upqsyweon49/09/2025 3:00 PM EDT Office Visit [facility] [address] [place] [address] Bianca Little PA-C [address] [place] [address] Cervical stenosis of spinal canal [M48.02][facility] Comment on above:Cervical stenosis of spinal canal [M48.02]Start: 10-15-2024 End: 87-26-7006Wsgamy-up /02/2025 12:20 PM EDT [facility] Urology [address] [address] Peterson Gonsalez MD [address] [place], [place] [id number] Follow-upUrologyComment on above:Follow-upStart: 10-14-2024 End: 99-62-5943Boygfsj encounter procedureRadiologyComment on above:Left femur XRPost op Left femur Sx 08/23/24[XR prior] Post op Left femur Sx 08/23/24Start: 10-09-2024 End: 06-48-3261Aavmtuz encounter procedureRadiologyComment on above:Other hydrocephalus ([facility]) [G91.8]CT Follow upClosed fracture of distal end of left femur, unspecified fracture morphology, initial encounter ([facility]) [S72.402A]Start: 98-08-2102QC Controlled (<130/80)BP Controlled (<130/80)[facility]: 09-23-2024 End: 07-48-7011Yytbfd-up /10/2025 8:00 AM EDT [facility] Urology [address] [address] Peterson Gonsalez MD [address] [place] [address] Follow-up UrologyComment on above:Follow-upStart: 81-75-3189HP Controlled (<130/80)BP Controlled (<130/80)[facility]art: 09-17-2024 End: 84-61-7889Qfmhtxq encounter rpdftefis99/04/2025 9:30 AM EDT Office Visit Infectious Disease [address] [place] [address] Jamie Mccarty MD [address] [place] [address] fungal meningitis follow upInfectious DiseaseComment on above:fungal meningitis follow upStart: 09-16-2024 End: 14-37-0116vekuznkrpp97/03/2025 10:45 AM EDT Results Only Main [place] [facility] [address] [address] LabsMain [place] Q2- 1 Draw StationComment on above:LabsStart: 09-16-2024 End: 73-22-3865Yfrigul encounter procedureRadiologyComment on above:CTU - CT Chest LM to confirm that CT scans have been moved from main [place] to [place], CT-U & CT chest & labs- need new orders. Orders will be more than 1 year old day of scanStart: 09-11-2024 End: 62-56-2007Eanvr metabolic 2000 panel - Serum or PlasmaBASIC METABOLIC PANEL Lab Routine History of bladder cancer Expected: 09/11/2024 (Approximate), Expi res: 12/11/2024leveland ClinicComment on above:Expected: 09/11/2024 (Approximate), Expires: 12/11/2024Start: 09-11-2024 End: 33-07-5793Zozeyowen (Vitamin B12) [Mass/volume] in Serum or PlasmaVITAMIN B12 Lab Routine History of bladder cancer Expected: 09/11/2024 (Approximate), Expires: 12/11/2024[facility] ClinicComment on above:Expected: 09/11/2024 (Approximate), Expires: 12/11/2024Start: 09-11-2024 End: 15-38-3256FWHHNULZHZ BLDCREATININE BLD Lab Routine History of bladder cancer Expected: 09/11/2024 (Approximate), Expires: 12/11/2024[facility] Comment on above:Expected: 09/11/2024 (Approximate), Expires: 12/11/2024Start: 09-11-2024 End: 15-04-5889AC Chest W contrast IVCT CHEST W IVCON Radiology Routine History of bladder cancer Expected: 09/11/2024 (Approximate), Expires: 10/11/2024 [facility] HospitalComment on above:Expected: 09/11/2024 (Approximate), Expires: 10/11/2024Start: 09-11-2024 End: 72-54-9446GO Kidney WO and W contrast IVCT UROGRAM WO/W IVCON Radiology Routine History of bladder cancer Expected: 09/11/2024 (Approximate), Expires: 10/11/2024[facility] ClinicComment on above:Expected: 09/11/2024 (Approximate), Expires: 10/11/2024Start: 09-11-2024 End: 79-78-1222YE Kidney - bilateral and Urinary bladderUS KIDNEY/BLADDER Radiology Routine History of bladder cancer Expected: 09/11/2024 (Approximate), Expires: 10/11/2024[facility] Work Phone: comment on above:Expected: 09/11/2024 (Approximate), Expires: 10/11/2024Start: 09-11-2024 End: 34-87-1786Pmbxymm evaluation of patient and iwauaa3409/11/2024 9:30 AM EDT Nurse Visit Orthopa[facility]ics [place] [address] [place] [address] [phone] [place] [address] [place] [address] Post op Left femur Sx 08/23/24Orthopaedics ElmaComment on above:Post op Left femur Sx 08/23/24Start: 09-11-2024 End: 07-75-0341Vrahhho encounter yhiligxrd01/29/2025 8:20 AM EDT Appointment Radiology [address] [place] [address] Left femur XRRadiologyComment on above:Left femur XRStart: 09-09-2024 End: 23-95-3587Nyszirf encounter procedureOphthalmologyComment on above:cataract eval (referral scanned)Start: 09-03-2024 End: 51-30-8839Tydggpa encounter iuosjaxbu59/21/2025 2:40 PM EDT Office Visit Endocrinology [address] [facility] [place] [address] [address] Ruddy Gupta MD [address] [place] [address] 6 month follow upEndocrinologyComment on above:6 month follow upStart: 54-06-6926Jxmiitujkj A1c brwsphtqyznPyL1VClhhzzdsy ClinicStart: 08-01-2024 End: 53-91-6330Iwlwtvt encounter sxrnytpye06/18/2025 9:00 AM EDT Office Visit Neurological Sikh [address] [place] [address] Marlene Cordero PA-C [address] [place] [address] Shunt change per Winter Cordero okay to double book Neurological RestorationComment on above:Shunt change per Winter Valentinedebithanh okay to double bookStart: 07-31-2024 End: 21-92-0625Vjinhwv encounter comeirmyl55/17/2025 1:45 PM EDT Appointment Radiology Pet CT [address] [place] [address] [place] [address] CT Brain Radiology Pet CTComment on above:CT BrainStart: 51-36-0963Hiqvc cultureAdams County Hospitaltart: 94-04-0499Paupmjay identified in Urine by Culture Urine [facility] Rehabilitationtart: 07-28-2024 End: 54-35-2574Dwcgmx-up lrmzsdunc47/14/2025 1:00 PM EDT [facility] Neurological Sikh [address] [place], [place] [phone] Reggie Butler MD [address] [place] [address] follow upNeurological RestorationComment on above:follow upStart: 07-22-2024 End: 06-62-4534Bknydub encounter ignugatin53/08/2025 3:15 PM EDT Office Visit Rehab [facility] [address] [place] [address] Noel Daniels MD [address] [place] [address] BOTOXRehab Medicine [facility] HospitalCComment on above:BOTOXStart: 07-15-2024 End: 82-42-5207Vacnxzn encounter wotwsotuo13/01/2025 2:30 PM EDT Office Visit Rehab [facility] [address] [place] [address] Noel Daniels MD [address] [place], [place] [phone] BotoxRehab Medicine [facility] Medical Centeromment on above:BotoxStart: 59-60-5334Fwwwuzfrtz measurementMetroHealth Start: 49-02-7721Aaikcrfeyh measurementBasic Metabolic PanelTHE GALION COMMUNITY HOSPITAL SYSTEMStart: 07-02-2024 End: 63-66-3631Hxrvrjq encounter skqmsuvxv19/19/2025 9:30 AM EDT Office Visit Infectious Disease [address] [place] [address] Jamie Mccarty MD [address], [place] [phone] fungal meningitisInfectious DiseaseComment on above:fungal meningitisStart: 07-01-2024 End: 69-97-9382Eibpnny encounter wuphgymay05/18/2025 4:00 PM EDT Office Visit Endocrinology [address] [place] [address] Katiana Huang APRN.SUPERVISOR NET MAKING [address] [place] [address] 3 month follow upEndocrinologyComment on above:3 month follow upStart: 06-18-2024 End: 28-82-6976Rubweub encounter gfaidfbjl04/05/2025 1:00 PM EST Office Visit Infectious Disease [address] [place] [address] Jamie Mccarty MD [address] [place] [address] fungal meningitisInfectious DiseaseComment on above:fungal meningitisStart: 05-29-2024 End: 20-29-0691Oicvqsv encounter /13/2025 1:00 PM EST Office Visit Cardiology [address] [facility] [place] [address] Ruthy Jesus MD [address] [facility] [place] [address] Transfering Care from a Administrative Law Judge in [place] for PalpitationsCardiologyComment on above:Transfering Care from a Administrative Law Judge in [place] for PalpitationsStart: 17-95-2019BC Controlled (<130/80)BP Controlled (<130/80)[facility] Campustart: 04-24-2024 End: 44-93-6402RQQICHPCYP PROT UR W/INTERPMONOCLONAL PROT UR W/INTERP Lab Routine Disturbance of skin sensation Expected: 04/24/2024, Expires: 07/24/2024 [facility] Work Phone: Comment on above:Expected: 04/24/2024, Expires: 07/24/2024Start: 04-22-2024 End: 22-21-4746Qqpipar encounter oypiaymoy91/07/2025 1:45 PM EST [facility] [address] [place] [address] Noel Daniels MD [address] [place] [phone] NERVE BLOCK - [place] per providerGrace Medical CenterCComment on above:NERVE BLOCK - [place] per provider Start: 01-01-2025[facility] Annual Wellness VisitMedicare [facility] Annual Wellness VisitSt. Mary's [facility], [place] Campustart: 04-15-2024 End: 61-86-3646Altxzrc encounter lcfqynmtn71/31/2024 11:45 AM EST [facility] [address] [place] [address] Noel Daniels MD [address] [place], [place] [phone] BotoxAlvin J. Siteman Cancer Centerab [facility] – DentonCComment on above:BotoxStart: 04-10-2024 End: 99-68-6312Ijsgsbu encounter procedureRadiologyComment on above:Other hydrocephalusStart: 61-73-6070Drxoeejmtd A1c gvtxapeinvnEuC7PKagtijsby Clinic Start: 03-21-2024 End: 00-55-6966Onxjpzt encounter fryklctae39/06/2024 11:00 AM EST Office Visit Neurological Sikh [address] [place] [address] Reggie Butler MD [address] [place] [address] Follow upNeurological RestorationComment on above:Follow up Start: 03-18-2024 End: 40-69-9606Jstinmhbcdmwow [Moles/volume] in Serum or PlasmaVan Wert County Hospital Work Phone: Comment on above:Expected: 03/18/2024, Expires: 06/17/2024Start: 03-18-2024 End: 78-52-9747SXCFNQPSNE PROT UR W/INTERPCleveland ClinicComment on above: Expected: 03/18/2024, Expires: 06/17/2024Start: 03-18-2024 End: 32-37-6236KTGOKMJWDH PROTEIN, SERUM (BLOOD)[facility] HospitalComment on above:Expected: 03/18/2024, Expires: 06/17/2024Start: 03-18-2024 End: 09-06-7679Tccgtzo encounter hooharbqm20/03/2024 9:00 AM EST Office Visit Neurology [address] [place] [address] [place] [address] [place] [address] SpasticityNeurologyComment on above:SpasticityStart: 02-14-2024 End: 73-01-0889Duavbnz encounter bvlguhryd80/31/2024 6:00 PM EDT Appointment [facility] Rad[place] Scan [address] [place] [address] Other hydrocephalus (HCC) [G91.8][facility] Radiology CT Scan Comment on above:Other hydrocephalus (HCC) [G91.8]Start: 02-13-2024 End: 46-90-9066Eajohme encounter procedureNeurological RestorationComment on above:added per Marlene CorderoStart: 02-11-2024 End: 51-17-2602Qccunm-up thrcqiktk92/28/2024 3:30 PM EDT [facility] PHYSICAL MEDICINE & REHAB [address] [address] Noel Daniels MD [address] [place] [address] Follow up from injecPHYSICAL MEDICINE & REHABComment on above:Follow up from injecStart: 02-11-2024 End: 45-08-8681Gshlghx encounter yfxjdkkcs59/28/2024 9:00 AM EDT Office Visit Neurological Sikh [address] [place] [address] Darien Strickland PA-C [address] [place] [address] Follow up / Increase muscle spasmsNeurological Sikh Comment on above:Follow up / Increase muscle spasmsStart: 02-06-2024 End: 24-65-8892OGD PHOS ISOENZYM BLALK PHOS ISOENZYM BL Lab Routine 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) Elevated alkalinephosphatase level Expected: 02/06/2024, Expires: 05/07/2024[facility] Work Phone: Comment on above:Expected: 02/06/2024, Expires: 05/07/2024Start: 02-06-2024 End: 34-45-4368Yopivvwbhxkbv metabolic 2000 panel - Serum or PlasmaCOMPREHENSIVE METABOLIC PANEL Lab Routine 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) Expected: 02/06/2024, Expires: 05/07/2024leveland ClinicComment on above: Expected: 02/06/2024, Expires: 05/07/2024Start: 02-06-2024 End: 77-59-1850Cjwgi 1996 panel - Serum or PlasmaLIPID PANEL BASIC Lab Routine 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) Expected: 02/06/2024, Expires: 05/07/2024leveland ClinicComment on above:Expected: 02/06/2024, Expires: 05/07/2024Start: 02-06-2024 End: 94-13-7606RGKDQGCMHENB, SERUMPOSACONAZOLE, SERUM Lab Routine Fungal meningitis Expected: 02/06/2024, Expires: 05/07/2024[facility] hospitaland [facility] Work Phone: comment on above:Expected: 02/06/2024, Expires: 05/07/2024Start: 02-06-2024 End: 28-98-6165Fulgulmusxl [Units/volume] in Serum or PlasmaTHYROID STIMULATING HORMONE Lab Routine 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) Expected: 1 , Expires: 05/07/2024[facility]frye [facility] medical center ClinicComment on above:Expected: 02/06/2024, Expires: 05/07/2024Start: 02-06-2024 End: 00-82-4636Havffsd encounter aeaijulsl19/23/2024 11:00 AM EDT Office Visit Endocrinology [address] [facility] [address] Ruddy Gupta MD [address] [place] [address] hospital discharge follow up; diabetesEndocrinologyComment on above: hospital discharge follow up; diabetesStart: 01-31-2024 End: 09-30-3829zehblcutpw87/17/2024 9:30 AM EDT Mobile Visit Wound Ostomy [address] [place] [address] Sharan Dominguez APRN.SUPERVISOR NET MAKING [address] [place] [address] Wound assessment [place] OaksWound OstomyComment on above:Wound assessment [place] OaksStart: 32-37-4815Pfkufjheq vaccinationInfluenza Vaccine (#1)[facility] Start: 01-11-2024 End: 46-77-3659Idnvjad encounter procedureResolute Health Hospital Comment on above:BOTOXPHENOL INJECPHENOLStart: 01-10-2024 End: 41-45-7969Eggrxbc encounter vptseoonc59/26/2024 3:30 PM EDT Office Visit Infectious Disease [address] [place] [address] Jamie Mccarty MD [address] [place] [address] fungal OFFICE SUPPORT SPECIALIST infectionInfectious DiseaseComment on above:fungal OFFICE SUPPORT SPECIALIST infection Start: 36-86-8126Hnyghfwehb A1c measurementMetroHealthStart: 01-10-2024 End: 59-95-0082ogodwfpkug76/26/2024 12:00 PM EDT Mobile Visit Wound Ostomy [address] [place] [address] Sharan Dominguez APRN.SUPERVISOR NET MAKING [address] [place] [address] Wound assessment Carine Navaound OstomyComment on above:Wound assessment [place] OaksStart: 01-10-2024 End: 24-50-7665Nspjene encounter procedureRadiologyComment on above:RC ECPOST OP 10/08/23 - LEFT TIBIAOther hydrocephalus (HCC) [G91.8]Follow upStart: 01-09-2024 End: 73-60-1218Ckfsbfy encounter liboaqkjx19/25/2024 10:00 AM EDT Office Visit Infectious Disease [address] [place] [address] Jamie Mccarty MD [address] [place] [address] fungal OFFICE SUPPORT SPECIALIST infectionInfectious DiseaseComment on above:fungal OFFICE SUPPORT SPECIALIST infectionStart: 01-03-2024 End: 03-60-3641ezvzeygkzr77/19/2024 1:00 PM EDT Mobile Visit Wound Ostomy [address] [place] [address] Sharan Dominguez APRN.SUPERVISOR NET MAKING [address] [place] [address] Wound assessment Cold Bay Oakound OstomyComment on above:Wound assessment [place] Oaktart: 12-21-2023 End: 95-38-6542Jvxkhwo encounter hvzajvgdd80/06/2024 9:00 AM EDT Office Visit Neurological Sikh [address] [place] [address] Reggie Butler MD [address] [place], [place] [phone] Other hydrocephalus (HCC) [G91.8]Neurological Sikh Comment on above:Other hydrocephalus (HCC) [G91.8]Start: 12-20-2023 End: 30-40-0277nteorkhbqv14/05/2024 1:00 PM EDT Mobile Visit Wound Ostomy [address] [place] [address] Sharan Dominguez, STEVEN.SUPERVISOR NET MAKING [address] [place] [address] Wound assessment Cold Baysruthi Navaound OstomyComment on above:Wound assessment [facility]rt: 23-79-5428Tvvcd-19 Vaccine ( season)Covid-19 Vaccine ( season)[facility] Campustart: 61-85-9309Btiiz-19 Vaccine ( season)Covid-19 Vaccine ( season)[facility] Campustart: 12-16-2023 Influenza vaccinationInfluenza Vaccine (#1)[facility] Campustart: 12-13-2023 End: 78-63-3730wgmvgetkyv69/29/2024 12:30 PM EDT Mobile Visit Wound Ostomy [address] [place] [address] Sharan Dominguez, STEVEN.SUPERVISOR NET MAKING [address] [place] [address] Wound assessment Carine Oakound OstomyComment on above:Wound assessment Carine Oaktart: 12-05-2023 End: 79-73-2765wswajofyws02/21/2024 11:00 AM EDT Mobile Visit Wound Ostomy [address] [place] [address] Sharan Dominguez APRN.SUPERVISOR NET MAKING [address] [place] [address] Wound assessment Carine Brandyound OstomyComment on above:Wound assessment [place] OaksStart: 12-04-2023 End: 83-11-3312Pyydncv encounter itdyzstru18/20/2024 11:00 AM EDT Office Visit Rehab Medicine [facility] [address] [place], [place] [address] Noel Daniels MD [address] [place] [address] New evalRehab Medicine [facility] FHCComment on above:New evalStart: 11-29-2023 End: 50-39-7641Phzblmv encounter procedureRadiologyComment on above:Other hydrocephalus (HCC) [G91.8]Follow upStart: 11-27-2023 End: 40-69-3695Ixmszqg encounter procedureRadiologyComment on above:XR TIBIA FIBULA 2V AP/LAT LEFTPOST OP 10/08/23 - LEFT TIBIAStart: 11-22-2023 End: 43-39-3457Cxhyxen encounter procedureRadiologyComment on above:Other hydrocephalus (HCC) [G91.8]Ct follow upStart: 11-22-2023 End: 14-54-7196rkojwxgvgr43/08/2024 12:00 PM EDT Mobile Visit Wound Ostomy [address] [place] [address] Sharan Dominguez APRN.SUPERVISOR NET MAKING [address] [place] [address] Wound assessment [place] OakMiguelangelound OstomyComment on above:Wound assessment [place] OaksStart: 11-20-2023 End: 42-39-2037Ibwynigkd to same day surgery iwdxyi8111/20/2023 11:30 AM EDT - 11/20/2023 3:00 PM EDT Surgery Admitting [address] [place] [address] Con Oconnor MD [address] [place] [address] IMPLANT SHUNT VENTRICULOPERITONEALAdmittingComment on above: IMPLANT SHUNT VENTRICULOPERITONEALStart: 11-20-2023 End: 31-13-3371Usod shunt sploufzpab-rexndulcy-wqycglq terminusIMPLANT SHUNT VENTRICULOPERITONEAL Communicating hydrocephalus (HCC) 11/20/2023 11:30 AM EDMED[facility] MAIN PAVILIONStart: 11-20-2023 End: 28-97-2675Eagw insertion tunneled intraperitoneal catheterLAPAROSCOPIC INSERTION OF INTRAPERITONEAL CANNULA OR CATHETER, PERMANENT Communicating hydrocephalus (HCC) 11/20/2023 11:30 AM EDMED[facility] C[facility]IN PAVILIONStart: 11-20-2023 Subsequent hospital visit by physicianAdmittingComment on above: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]Start: 11-19-2023 End: 14-62-5697Rrapyvu encounter procedureNeurological RestorationComment on above:fiducial placementpre op brain localization SURG planningStart: 11-16-2023 End: 11-51-4628Izritxw encounter procedureInfectious DiseaseComment on above: Fungal Meningitis Follow UpStart: 11-15-2023 End: 10-67-4615kbwvsncugh79/01/2024 2:30 PM EDT Mobile Visit Wound Ostomy [address] [place] [address] Sharan Dominguez, STEVEN.SUPERVISOR NET MAKING [address] [place] [address] Wound assessment Cold Bay OaksWound OstomyComment on above:Wound assessment Carine OaksStart: 11-13-2023 End: 17-80-8205Aoxgkjm encounter /30/2024 2:30 PM EDT Office Visit Orthopaedics [place] [address] [place] [address] Aashish Monge PA-C [address] [place] [address] Follow Up- Left KneeOrthopaedics ElmaComment on above:Follow Up- Left KneeStart: 11-13-2023 End: 42-72-4386Zdatfpc encounter fnealsmbl40/30/2024 1:20 PM EDT Appointment Radiology [address] [place] [address] left Knee XRRadiologyComment on above:left Knee XRStart: 11-09-2023 End: 91-75-2870Tlwpmrp encounter jaiidkpie11/26/2024 1:15 PM EDT Office Visit Endocrinology [address] [place] [address] Katiana Huang, BACK UP SCAN COORDINATOR.SUPERVISOR NET MAKING [address] [place] [address] hospital discharge follow up; diabetesEndocrinologyComment on above:hospital discharge follow up; diabetesStart: 11-07-2023 End: 99-35-2445Gzqgomf encounter nkuyfackm89/24/2024 1:45 PM EDT Office Visit Endocrinology [address] [place] [address] Katiana Huang, BACK UP SCAN COORDINATOR.SUPERVISOR NET MAKING [address] [place] [address] hospital discharge follow up; diabetesEndocrinologyComment on above:hospital discharge follow up; diabetesStart: 10-31-2023 End: 24-54-9356xgewuptcogZyeluqmpjtTjuswqh on above:pre op ekgpre opStart: 10-31-2023 End: 02-34-4516Feaglko encounter trlgvoxka59/17/2024 12:30 PM EDT Office Visit Neurological Sikh [address] [place] [address] Marlene Cordero PA-C [address] [place] [address] CT Follow UpNeurological RestorationComment on above: CT Follow UpStart: 10-31-2023 End: 52-50-3866Exqearctfe mbcigemzvgdw86/17/2024 11:20 AM EDT PAT Pre Anesthesia [address] [place] [address] 9, [address] [place] [address] pre opPre AnesthesiaComment on above:pre opStart: 10-31-2023 End: 28-53-6242Bckieyk encounter procedureMRI QComment on above: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]preopStart: 10-31-2023 End: 56-66-7072Evapfff encounter shpjfikoc27/17/2024 8:30 AM EDT Office Visit Neurological Sikh [address] [place] [address] Con Oconnor MD [address] [place] [address] pre op per CalebNeurological RestorationComment on above:pre op per CalebStart: 10-31-2023 End: 86-92-6097Iksphmu encounter procedureNeurological RestorationComment on above:Movement Disorders and DBSeducation per CalebStart: 10-25-2023 End: 59-12-9704Uunfhxu evaluation of patient and bftera6710/25/2023 1:00 PM EDT Nurse Visit [facility]ed[facility] [place] [address] [facility] [place] [address] [place] [address] [place] [address] POST OP 10/08/23 - LEFT TIBIAOrthopaedics ElmaComment on above:POST OP 10/08/23 - LEFT TIBIAStart: 10-25-2023 End: 34-57-6455Uvgllpk encounter pcxrdbbco21/11/2024 11:40 AM EDT Appointment Radiology [address] [place] [address] XR TIBIA FIBULA 2V AP/LAT LEFT RadiologyComment on above:XR TIBIA FIBULA 2V AP/LAT LEFTStart: 10-23-2023 End: 42-07-7036Stqnjtq encounter mmlkkbgji25/09/2024 12:40 PM EDT Appointment Radiology [address] [facility] [place] [address] Yaceomnemqbpn, adult (HCC) [G91.9]RadiologyComment on above:Hydrocephalus, adult (HCC) [G91.9] Start: 10-11-2023 End: 53-91-2203Rtkwdxh encounter procedureRadiology Pet CTComment on above:ct brain wolabsStart: 10-04-2023 End: 01-03-2024 reactive protein [Mass/volume] in Serum or PlasmaC-REACTIVE PROTEIN Lab Routine Fungal meningitis Expected: 10/04/2023, Expires: 01/03/2024 [facility] HospitalComment on above:Expected: 10/04/2023, Expires: 01/03/2024Start: 10-04-2023 End: 99-80-5166DBL W Auto Differential panel - BloodCOMPLETE BLOOD COUNT AND DIFFERENTIAL Lab Routine Fungal meningitis Expected: 10/04/2023, Expires: 0 01/03/2024[facility] ClinicComment on above:Expected: 10/04/2023, Expires: 01/03/2024Start: 10-04-2023 End: 01-29-3896Rqahtgxhpuvey metabolic 2000 panel - Serum or PlasmaCOMPREHENSIVE METABOLIC PANEL Lab Routine Fungal meningitis Expected: 10/04/2023, Expires: 01/03/2024[facility] ClinicComment on above:Expected: 10/04/2023, Expires: 01/03/2024Start: 10-04-2023 End: 91-21-7467Boqtywwwy [Mass/volume] in Serum or PlasmaMAGNESIUM Lab Routine Fungal meningitis Expected: 10/04/2023, Expires: 01/03/2024[facility] Comment on above:Expected: 10/04/2023, Expires: 01/03/2024Start: 10-04-2023 End: 14-39-7650Mlglvwykn [Mass/volume] in Serum or PlasmaPHOSPHORUS INORGANIC Lab Routine Fungal meningitis Expected: 10/04/2023, Expires: 01/03/2024[facility] ClinicComment on above:Expected: 10/04/2023, Expires: 01/03/2024Start: 10-04-2023 End: 28-03-6354WEVNIIOTYYHQ, SERUMPOSACONAZOLE, SERUM Lab Routine Fungal meningitis Expected: 10/04/2023, Expires: 01/03/2024[facility] Work Phone: comment on above:Expected: 10/04/2023, Expires: 01/03/2024Start: 10-04-2023 End: 90-36-1879eubqclksgy08/20/2024 1:00 PM EDT [facility] Neurological Sikh [address] [place] [phone] Marlene Cordero PA-C [address] [place] [address] wound checkNeurological RestorationComment on above:wound checkStart: 10-04-2023 End: 72-34-9138Amiisfk encounter tymvvmcyi99/20/2024 1:00 PM EDT Office Visit Neurological Sikh [address] [place] [address] Marlene Cordero PA-C [address] [place] [address] wound checkNeurological RestorationComment on above: wound checkStart: 10-02-2023 End: 22-35-1987Qobfnct encounter ioryvbglv07/18/2024 1:30 PM EDT Appointment [facility] Radiology Ultrasound [address] [place] [address] [facility] Radiology UltrasoundComment on above:KUBStart: 10-01-2023 End: 47-23-8462Qrfczij encounter duuznfeml01/17/2024 1:30 PM EDT Office Visit [facility] Neurosurgery [address] [place] [address] Daniel Figueroa MD [address] [facility] [place] [address] [facility] NeurosurgeryStart: 40-91-4311DG CONTROLLED (<130/80)BP CONTROLLED (<130/80)[facility] Campustart: 09-19-2023 End: 32-62-7763Eqube metabolic 2000 panel - Serum or PlasmaBASIC METABOLIC PANEL Lab Routine History of bladder cancer Expected: 09/19/2023 (Approximate), Expi res: 12/19/2023[facility] Work Phone: comment on above:Expected: 09/19/2023 (Approximate), Expires: 12/19/2023Start: 99-45-6341Fnpicpsbjx A1c measurementMer[facility] Health [facility] Hospital Start: 09-18-2023 End: 14-49-1124Ixxxiby encounter tvflrhetd44/04/2024 8:00 AM EDT Office Visit Neurological Sikh [address] [place] [address] Tonie Rosado MD [address] [place] [phone] Movement Disorders and DBSNeurological Sikh Comment on above:Movement Disorders and DBSStart: 09-13-2023 End: 85-69-7524Lpucypj encounter bvqjjvmfi89/30/2024 2:15 PM EDT Appointment Radiology Pet CT [address] [place] [address] [place] [address] ct brain wo Radiology Pet CTComment on above:ct brain woStart: 09-12-2023 End: 08-14-6558Cguuauk encounter knatheevx23/29/2024 1:00 PM EDT Office Visit Urology [address] [address] Peterson Gonsalez MD [address] [place], [place] [phone] 6MO with CTUrologyComment on above:6MO with CTStart: 09-12-2023 End: 88-81-3239Rjwtqvf evaluation of patient and hrzoba0109/12/2023 8:15 AM EDT Nurse Visit Colorectal Surgery [address] [address] Therapy, [place] [address] [place] [address] updated supply formColorectal SurgeryComment on above:updated supply formStart: 09-06-2023 End: 73-12-7798rFRI in Platelet poor plasma by Coagulation assayACTIVATED PARTIAL THROMBOPLASTIN TIME Lab Routine Screening for condition Expected: 09/06/2023, Expires: 12/06/2023[facility] Work Phone: comment on above:Expected: 09/06/2023, Expires: 12/06/2023Start: 09-06-2023 End: 28-99-6495Mcmtu metabolic 2000 panel - Serum or PlasmaBASIC METABOLIC PANEL Lab Routine Communicating hydrocephalus (HCC) Expected: 09/06/2023, Expires: 0 12/06/2023[facility] ClinicComment on above:Expected: 09/06/2023, Expires: 12/06/2023Start: 09-06-2023 End: 85-04-2489SBL W Auto Differential panel - BloodCOMPLETE BLOOD COUNT AND DIFFERENTIAL Lab Routine Communicating hydrocephalus (HCC) Expected: 09/06/2023, Expires: 12/06/2023[facility] ClinicComment on above:Expected: 09/06/2023, Expires: 12/06/2023Start: 09-06-2023 End: 40-19-8500VULCARZ BLOOD TYPECONFIRM BLOOD TYPE Blood Bank Routine Communicating hydrocephalus (HCC) Expected: 09/06/2023, Expires: 12/06/2023 [facility] HospitalComment on above:Expected: 09/06/2023, Expires: 12/06/2023Start: 09-06-2023 End: 28-85-2335MD panel - Platelet poor plasma by Coagulation assayPROTHROMBIN TIME Lab Routine Screening for condition Expected: 09/06/2023, Expires: 12/06/2023leveland ClinicComment on above:Expected: 09/06/2023, Expires: 12/06/2023Start: 09-06-2023 End: 81-05-6811GTRHTFSQAWIDKF AUREUS & MRSA SCREEN, PCR, NASALSTAPHYLOCOCCUS AUREUS & MRSA SCREEN, PCR, NASAL Lab Routine Communicating hydrocephalus (HCC) Expected: 09/06/2023, Expires: 12/06/2023[facility] ClinicComment on above: Expected: 09/06/2023, Expires: 12/06/2023Start: 09-06-2023 End: 96-70-6853TGXH AND SCREEN,30 DAYTYPE AND SCREEN,30 DAY Blood Bank Routine Communicating hydrocephalus (HCC) Expected: 09/06/2023, Expires: 12/06/2023 [facility] HospitalComment on above:Expected: 09/06/2023, Expires: 12/06/2023Start: 09-06-2023 End: 46-42-5854Qifbphvirv complete panel - UrineURINALYSIS WITH MICROSCOPIC, REFLEX CULTURE Lab Routine Communicating hydrocephalus (HCC) Expected: 09/06/2023, Expires: 12/06/2023[facility] ClinicComment on above:Expected: 09/06/2023, Expires: 12/06/2023Start: 08-27-2023 End: [id number] POWERSHARE IMAGES TO EPICDOWNLOAD POWERSHARE IMAGES TO EPIC Imaging Routine 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) Expected: 08/27/2023, Expires: 08/26/2024[facility] [employer] Work Phone: Comment on above:Expected: 08/27/2023, Expires: 08/26/2024Start: 08-21-2023 End: [id number] evaluation of patient and ylwjru3008/21/2023 9:15 AM EDT Nurse Visit Colorectal Surgery [address] [id number] [phone] Therapy, [facility] [address] [place], [place] [id number] updated supply formColorectal SurgeryComment on above:updated supply formStart: 08-14-2023 End: 18-70-8579Tmhrdpf encounter mscwelqll23/30/2024 2:30 PM EDT Office Visit Orthopaedics [place] [address] [place] [address] Aashish Monge PA-C [address] [place] [address] LEFT KNEE FOLLOW UPOrthopaedics [facility]iverview health instituteComment on above:LEFT KNEE FOLLOW UPStart: 08-14-2023 End: 01-80-1161Vmxfhgb encounter wamzzkyqn13/30/2024 1:20 PM EDT Appointment Radiology [address] [phone] XR KNEE LIMITED 2V AP/LAT LEFT RadiologyComment on above:XR KNEE LIMITED 2V AP/LAT LEFTStart: 08-09-2023 End: 21-73-8705TG Head WO contrastCT HEAD W/O CONTRAST Imaging Routine 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) Expected: 08/09/2023 (Approximate), Expires: 07/25/2024[facility] [employer] Work Phone: Comment on above:Expected: 08/09/2023 (Approximate), Expires: 07/25/2024Start: 07-26-2023 End: 28-37-7726xdvzahxghcDvmgxJaasmt NeurosurgeryStart: 07-26-2023 End: 69-83-6232Biiatwc encounter procedureMetProtestant Hospital NeurosurgeryStart: 07-18-2023 End: 17-04-2233kgcqdmcvnuYyagoTvghmy Acute Care SurgeryStart: 07-18-2023 End: 54-40-1392Qjsvmzp encounter zwmjakwoi34/03/2024 2:45 PM EDT Office Visit [facility] Acute Care Surgery [address] [id number] JuqncVsdwtw Acute Care SurgeryStart: 07-10-2023 End: 63-41-4608Ho abdomen & pelvis w/o contrst 1/> body reCT UROGRAM WO/W IVCON Radiology Routine History of bladder cancer Expected: 07/10/2023, Expires: [facility] Work Phone: comment on above:Expected: 07/10/2023, Expires: 02/08/2024Start: 07-10-2023 End: 44-54-6093Tluogjxbtf and management of rttlcaviw18/26/2024 8:30 AM EDT - 07/10/2023 11:46 AM EDT Surgery [facility] [address] [place] [address] Daniel Figueroa MD [address] [facility] [address] REVISION, SHUNTMetroHealth Main ORComment on above: REVISION, SHUNTStart: 07-10-2023 End: 52-73-3410OATDTRVQ, SHUNTREVISION, SHUNT Routine scheduled Small bowel obstruction (HCC) 07/10/2023 8:30 AM EDTTHE [employer] Work Phone: Start: 05-02-2023 End: 38-59-6985Sj abdomen & pelvis w/o contrst 1/> body reCT UROGRAM WO/W IVCON Radiology Routine History of bladder cancer Expected: 05/02/2023, Expires: [facility] Work Phone: comment on above:Expected: 05/02/2023, Expires: 06/01/2023Start: 05-02-2023 End: 85-95-3645WE CHEST W IVCONCT CHEST W IVCON Radiology Routine History of bladder cancer Expected: 05/02/2023, Expires: 06/01/2023[facility] Work Phone: comment on above:Expected: 05/02/2023, Expires: 06/01/2023Start: 61-56-3205Kyjcpilptl AssessmentDepression AssessmentSt. [facility], [place] Campustart: 01-15-2023 End: 57-91-5138FOD W Auto Differential panel - BloodCBC + DIFF Lab Routine Fungal meningitis Expected: 01/15/2023, Expires: 03/17/2023[facility] Work Phone: comment on above:Expected: 01/15/2023, Expires: 03/17/2023Start: 01-15-2023 End: 03-88-3066Nslbeeqravgtz metabolic 2000 panel - Serum or PlasmaCOMP METABOLIC PANEL Lab Routine Fungal meningitis Expected: 01/15/2023, Expires: 03/17/2023[facility] Work Phone: comcrtg on above:Expected: 01/15/2023, Expires: 03/17/2023Start: 01-15-2023 End: 94-63-7116IVIDXRMBNBRP, SERUMPOSACONAZOLE, SERUM Lab Routine Fungal meningitis Expected: 01/15/2023, Expires: 03/17/2023[facility] Work Phone: comegmo on above:Expected: 01/15/2023, Expires: 03/17/2023Start: 58-42-0228OVUAT-19 Vaccine ()COVID-19 Vaccine ()[facility] ClinicStart: 44-28-4330Rofab-19 Vaccine ()Covid-19 Vaccine ()[facility] [place] Campustart: 12-15-2022 Influenza vaccinationSt. Mary's [facility], [place] Campustart: 57-12-8876EJUJO[facility] Start: 36-85-4938Mmdfczuooi A1c/Hemoglobin.total in LihyvZPA5RBmhybgyra Clinic Start: 10-18-2022 End: 16-86-4415IGV W Auto Differential panel - BloodCBC + DIFF Lab Routine Therapeutic drug monitoring Expected: 10/18/2022, Expires: 12/18/2022[facility] Work Phone: comypix on above:Expected: 10/18/2022, Expires: 12/18/2022Start: 10-18-2022 End: 50-03-9510Jfrfpiractgqo metabolic 2000 panel - Serum or PlasmaCOMP METABOLIC PANEL Lab Routine Therapeutic drug monitoring Expected: 10/18/2022, Expires: 12/18/2022[facility] Work Phone: comwppa on above:Expected: 10/18/2022, Expires: 12/18/2022Start: 10-18-2022 End: 19-86-3171IOTXWZUFHPUT, SERUMPOSACONAZOLE, SERUM Lab Routine Therapeutic drug monitoring Expected: 10/18/2022, Expires: 12/18/2022[facility] Work Phone: comment on above:Expected: 10/18/2022, Expires: 12/18/2022Start: 84-86-9409QwsadrlnydwWDYRZPEWYOXTtcrqgmjy ClinicStart: 79-31-2354DESYZBADLQ CANCER SCREENINGCOLORECTAL CANCER SCREENINGMercy Health – [facility] Jewish [facility] Start: 62-50-4192Clhscwvrzv A1c/Hemoglobin.total in HobmaYTQ3ZCjykaavsg Clinic Start: 08-18-2022 End: 94-61-4497Lbs brain brain stem w/o w/contrast materialMRI BRAIN WO/W IVCON Radiology Routine Cervicalgia Expected: 08/18/2022, Expires: 08/18/2023[facility] Work Phone: comment on above:Expected: 08/18/2022, Expires: 08/18/2023Start: 08-18-2022 End: 98-82-0331Pup spinal canal thoracic w/o & w/contr matrlMRI THORACIC SPINE WO/W IVCON Radiology Routine Cervicalgia Expected: 08/18/2022, Expires: 08/18/2023[facility] Work Phone: comment on above:Expected: 08/18/2022, Expires: 08/18/2023Start: 08-03-2022 End: 39-44-5435CI BRAIN WO IVCONCT BRAIN WO IVCON Radiology Routine Other hydrocephalus (HCC) Expected: 08/03/2022 (Approximate), Expires: 08/19/2023 [facility] Work Phone: Comment on above:Expected: 08/03/2022 (Approximate), Expires: 08/19/2023Start: 04-86-3882MQHKOALN SCREENDIABETES SCREENSt. Mary's Medical Center, [place] Campustart: 50-83-5392Iviiqlkrzmez vaccinationSt. Mary's Medical Center, [place] Campustart: 06-13-2022 Pneumococcal Vaccine: 50+ (2 of 2 - PCV)Pneumococcal Vaccine: 50+ (2 of 2 - PCV) [facility] [place] Campustart: 04-16-2022 End: 83-61-8431Ph abdomen & pelvis w/o contrst 1/> body reCT UROGRAM WO/W IVCON Radiology Routine Malignant neoplasm of urinary bladder, unspecified site (HCC) Expected: 04/16/2022, Expires: 03/02/2023[facility] Work Phone: comment on above:Expected: 04/16/2022, Expires: 03/02/2023Start: 04-16-2022 End: 23-87-6196YM CHEST W IVCONCT CHEST W IVCON Radiology Routine Malignant neoplasm of urinary bladder, unspecified site (HCC) Expected: 04/16/2022, Expires: 03/02/2023[facility] Work Phone: comment on above:Expected: 04/16/2022, Expires: 03/02/2023Start: 68-65-7535CHGQKEXEIQ ASSESSMENTDEPRESSION ASSESSMENTCleFlower Hospitaltart: comp foot exam completedDIABETIC FOOT EXAMSt. Mary's Medical [facility], [place] Campustart: 03-89-4939Rzzicggd foot examinationDiabetic Foot ExamSt. Mary's Medical [facility], [place] Campustart: 95-65-7258BNR, Provider: Nayely Villasenor, Status: Pen, Time: 2:00 PMFUV, Provider: Nayely Villasenor, Status: Pen, Time: 2:00 PM UJ-Uzaymywcccsoe-TJA [place] [address] Work Phone: start: 56-07-5473PLUNDDYLTAPN (2 - PCV)PNEUMOCOCCAL (2 - PCV)[facility] [place] Campustart: 31-88-1373Tkoecmepzoxh vaccinationMercy Health – [facility] Jewish Hospital Start: 26-48-7775Mvyrvtxwynei Vaccine: 50+ (2 of 2 - PCV)Pneumococcal Vaccine: 50+ (2 of 2 - PCV)[facility] [place] Campustart: 97-91-7340LJZ [facility] SYSTEMStart: 01-31-2022 End: 32-40-5488Kaforzfta (Vitamin B12) [Mass/volume] in Serum or PlasmaVITAMIN B12 BLOOD Lab Routine Malignant neoplasm of urinary bladder, unspecified site (HCC) Expected: 01/31/2022, Expires: 04/02/2022[facility] Work Phone: comment on above:Expected: 01/31/2022, Expires: 04/02/2022tart: 01-31-2022 End: 66-92-6450Ndefhproyrnkz metabolic 2000 panel - Serum or PlasmaCOMP METABOLIC PANEL Lab Routine Malignant neoplasm of urinary bladder, unspecified site (HCC) Expected: 01/31/2022, Expires: 04/02/2022[facility] Work Phone: comment on above:Expected: 01/31/2022, Expires: 04/02/2022tart: 26-82-8544GNX, Provider: Nayely Villasenor, Status: Pen, Time: 11:20 AMFUV, Provider: Nayely Villasenor, Status: Pen, Time: 11:20 AM XN-Curaubkitvkua-QWV [place] [address] Work Phone: start: 78-96-7538BqkatnteqJ.W. [facility] Work Phone: Start: 29-92-1835AacmwplniJ.W. [facility] Work Phone: Start: 49-87-8320Itawatgqpk procedureJ.W. [facility] Work Phone: Start: 97-69-8814Pwtfjgfv therapy procedureJ.W. [facility] Work Phone: Start: 45-14-7525Qhgbfixi to occupational therapist [facility] Work Phone: Start: 59-49-3034Efptsebu admissionJ.W. [facility] Work Phone: Start: 92-31-4002RoqzdmmmuJ.W. [facility] Work Phone: Start: 45-07-7220Xbqgsnqai vaccinationINFLUENZA (#1) [facility] [place] Campustart: 11-08-2021 End: 37-80-7694ARVHXMRGHP BLDCREATININE BLD Lab Routine Malignant neoplasm of urinary bladder, unspecified site (HCC) Expected: 11/08/2021, Expires: 01/08/2022[facility] Work Phone: comment on above:Expected: 11/08/2021, Expires: 01/08/2022tart: 03-08-2285AXO, Provider: Nayely Villasenor, Status: Ru, Time: 3:00 PMFUV, Provider: Nayely Villasenor, Status: Ru, Time: 3:00 PM EN-Lkouyecqmbmkh-DLA [place] [address] Work Phone: start: 69-43-7225LQTGO-19 VACCINE (5 - Booster for Moderna series)COVID-19 VACCINE (5 - Booster for Moderna series)[facility] Start: 09-20-7700TRPBT-19 VACCINE (6 - Booster for Moderna series)COVID-19 VACCINE (6 - Booster for Moderna series)[facility] [place] Campustart: 66-89-5044FPBFF- 19 VACCINE (6 - Moderna series)COVID-19 VACCINE (6 - Moderna series)[facility] [place] Campustart: 43-42-8065Nncser wellness visitMetroHealthStart: 07-12-2021 Hemoglobin A1c/Hemoglobin.total in NcgrqAJS6EAxhlmaziq ClinicStart: 07-06-2021 COVID-19 VACCINE (4 - Booster for Moderna series)COVID-19 VACCINE (4 - Booster for Moderna series)[facility] [place] Campustart: 06-77-4946YIX, Provider: Nayely Villasenor, Status: Ru, Time: 1:00 PMFUV, Provider: Nayely Villasenor, Status: Ru, Time: 1:00 SHSU-Tuwpvnqomf-[address] Work Phone: Start: 87-62-3237VBDFNJIHQZ ASSESSMENTDEPRESSION ASSESSMENTSt. [facility] [place] Campustart: 69-53-5180Btttzssni vaccinationINFLUENZA (#1) [facility] [place] Campustart: 94-25-7489OUJ, Provider: Nayely Villasenor, Status: Ru, Time: 1:20 PMFUV, Provider: Nayely Villasenor, Status: Ru, Time: 1:20 PM ZD-Tpysyaqhdlcly-UVC [place] [address] Work Phone: start: 26-04-3248P7K test (Diabetic or Prediabetic)A1C test (Diabetic or Prediabetic)[facility] [place]Start: 19-79-4119Bqhhue Wellness Visit (AWV)Annual Wellness Visit (AWV)[place], [place]Stthe[place]: 76-97-0748Fwruyfkmz vaccinationFlu vaccine (#1)[place], [place]Start: 79-28-4820Aaxmlk cancer screenBreast cancer screenTyler, KYStart: 87-88-7106Kgezo cancer screen colonoscopyColon cancer screen colonoscopyTyler, KYStart: 23-30-9904Oshobiqh (RZV) Vaccine (1 of 2)MetroHealthStart: 32-39-5790Rigwqtpt Vaccine (1 of 2)Shingles Vaccine (1 of 2)[place] Start: 05-40-7348YPPJCZJI VACCINE (1 of 2)SHINGRIX VACCINE (1 of 2)[facility] [place] Campustart: 39-75-6196QYJWZTOYS (FIT-DNA)COLOGUARD (FIT-DNA)[facility] Start: 89-37-9481NoyxkkulxnxJZGGWRMHYFCQddzxmfro ClinicStart: 2011 COLORECTAL CANCER SCREENINGCOLORECTAL CANCER SCREENINGSt. [facility] [place] Campustart: 89-34-4120ID COLONOGRAPHYCT COLONOGRAPHYSt. Mary's Medical Center, [place] Campustart: 38-05-0246EODMU OCCULT BLOODFECAL OCCULT BLOODSt. Mary's Medical [facility], [place] Campustart: 16-73-0383NAMGS SCREENLIPID SCREENSt. Mary's [facility], [place] Campustart: 86-44-5857Yuwnywogq for malignant neoplasm of colonSt. Mary's [facility], [place] Campustart: 58-46-8354TMOSBTVXLKIERQMFIYVJYKEDLFTkckyluva Clinic Start: 19-63-3981Pkcnk screenLipid screenT[place], KYStart: 2006 MammographySt. Mary's [facility], [place] Campustart: 93-66-9318Rxecvolfa for malignant neoplasm of breastSt. Mary's [facility], [place] Campustart: 21-67-4116OJV TESTINGHPV TESTINGMercy Health – [facility] Hospital Start: 09-82-9416Msbrzruue for malignant neoplasm of cervixHPV TestingSt. Mary's Medical Center, [place] Campustart: 65-69-7506Kfgzkrxy cancer screenCervical cancer screenT[place], KYStart: 51-53-6911DGY TESTINGPAP TESTINGSt. Mary's [facility], [place] Campustart: 1987 Screening for malignant neoplasm of cervixSt. Mary's Medical [facility], [place] Campustart: 1985 Hepatitis A (HAV) Vaccine (optional start 19+ years)Hepatitis A (HAV) Vaccine (optional start 19+ years)[facility]roHealthStart: 79-60-3417LLFGLYGDU B (1 of 3 - Risk 3-dose series)HEPATITIS B (1 of 3 - Risk 3-dose series)[facility] [place]art: 04-80-2258Ojifzxadb B vaccinationHepatitis B (HBV) Vaccine (1 of 3 - 19+ 3-dose series)[facility]HealthStart: 50-28-7042Haxjllrab B Vaccine (1 of 3 - 19+ 3-dose series)Hepatitis B Vaccine (1 of 3 - 19+ 3-dose series)[facility] [place]: 47-29-9527KZJDKYMB VACCINE (1 of 2)SHINGRIX VACCINE (1 of 2)[facility] Start: 06-65-6731Ncmpm microalbumin profileSt. Mary's Medical Center, [place] Campustart: 18-49-3434TJR [facility] SYSTEMStart: 81-99-2679APGNCL PCP TEAM CHRONIC DISEASE VISITANNUAL PCP TEAM CHRONIC DISEASE VISITSt. Mary's Medical [facility], [place] Campustart: 89-27-8480Yebdwrm Screening Anxiety ScreeningSt. Mary's Medical Center, [place] Campustart: 07-91-2433CB CONTROLLED (<130/80)BP CONTROLLED (<130/80)[facility] [place] Campustart: 15-97-4612Grreypwgsi Screening Depression ScreeningSt. Mary's Medical [facility], [place] Campustart: 13-42-1671Hhwmiyif microalbuminuria testDiabetic microalbuminuria testT[place], KYStart: 11-92-9622Cdjliiclw B surface antibody levelLDL CHOLESTEROLSt. Mary's Medical Center, [place] Campustart: 1984 HEPATITIS C SCREENINGHEPATITIS C SCREENINGSt. [facility], [place] Campustart: 1984 Hepatitis C screeningSt. Mary's [facility], [place] Campustart: 12-31-3799ISS SCREENINGHIV SCREENING [facility] [place] Campustart: 87-19-0634APX screeningHIV ScreeningMercy Health – [facility] Start: 50-73-2802YIGTSNKOBLDDOAEHAHHSMlqiwpzkv ClinicStart: 90-09-1506Xtwjixt + diphtheria + acellular pertussis vaccine (product)MetroHealthStart: 1981 HIV screenHIV screenOhioHealth Dublin Methodist Hospital: 78-31-3025LJI screening MetroHealthStart: 78-76-4335Xmdnd depression screening assessmentDEPRESSION SCREENINGSt. Mary's [facility], [place] Campustart: 93-67-2458EUOGG-19 VACCINE (1)COVID-19 VACCINE (1)[facility] [place] [facility]: 70-59-8630NTjW/Tdap/Td vaccine (1 - Tdap)DTaP/Tdap/Td vaccine (1 - Tdap)[facility]: 1976[object Object]Diabetic foot examOhioHealth Dublin Methodist Hospital: 81-09-9152Imscqvuy retinal examDiabetic retinal examOhioHealth Dublin Methodist Hospital: 90-82-6095Nvcivowu screeningDilated Retinal ExamCleFlower Hospitaltart: 09-78-5140Irvubqios B screeningURINE ALBUMIN:CREATININE RATIOSt. Mary's [facility], [place] Campustart: 42-05-8287Exsrmmgsi C antibody, confirmatory testDILATED RETINAL EXAMSt. Mary[facility], [place] Campustart: 84-81-3812Agmbx screenLipid screenOhioHealth Dublin [facility] Hospital: 30-36-4818Ciyybuoa screening MetroSelect [facility] CincinnatiStart: 89-57-9195Bvqwd panelMetroSelect Medical Specialty Hospital - CincinnatiStart: 49-82-5631Qxoxm screening for proteinMetroSelect Medical Specialty Hospital - CincinnatiStart: 51-21-4456Mekmffjr foot examination MetroHealthStart: 03-59-5936SQCNFHPNK B (1 of 3 - 3-dose series)HEPATITIS B (1 of 3 - 3-dose series)[facility] [place] [facility]: 74-37-2135Urrltvoqk B vaccination MetroHealthStart: 50-39-8857Oawfscqsq B Vaccine (1 of 3 - 3-dose series) Hepatitis B Vaccine (1 of 3 - 3-dose series)[facility] [place] [facility]: 1966 Screening for malignant neoplasm of colonMetroHealthBacteria identified in Blood by [facility] HospitalBacteria identified in Urine by [facility] Work Phone: Basic metabolic 1999 panel - Serum or PlasmaTHE [facility] Work Phone: CBC panel - Blood by Automated countTHE [facility] Work Phone: Comprehensive metabolic 1999 panel - Serum or Plasma [facility] End: 90-31-1507ACQRBTU TOPOGRAPHY PENTACAM OU (BOTH EYES)CORNEAL TOPOGRAPHY PENTACAM OU (BOTH EYES) OPHT Imaging Routine Combined forms of age-related cataract of left eye Combined forms of age-related cataract of right eye 1 Occurrences starting 11/13/2024 until 05/07/2026[facility] HospitalComment on above:1 Occurrences starting 11/13/2024 until 05/07/2026Crtj shunt ygikwtkptn-oxnllgqgz-rqvpgkd terminusIMPLANT SHUNT VENTRICULOPERITONEAL Communicating hydrocephalus (HCC)[facility] End: 90-33-3363Wv abdomen & pelvis w/contrast materialCT ABD/PEL W IVCON Radiology Routine History of bladder cancer Abdominal pain, unspecified abdominal location 1 Occurrences starting 10/11/[address] [place] [address] Work Phone: comment on above:1 Occurrences starting 10/11/2021 until 11/10/2022 End: 21-49-6295Rg abdomen & pelvis w/o contrst 1/> body reCT UROGRAM WO/W IVCON Radiology Routine Malignant neoplasm of urinary bladder, unspecified site (HCC) 1 Occurrences starting 11/30/[address] [place] [address] Work Phone: comment on above:1 Occurrences starting 11/30/2021 until 12/30/2022 End: 27-39-2304WP BRAIN WO IVCONCT BRAIN WO IVCON Radiology Routine Other hydrocephalus (HCC) 1 Occurrences starting 08/25/[address] [place] [address] Work Phone: comment on above:1 Occurrences starting 08/25/2022 until 09/24/2023 End: 15-76-5284LG BRAIN WO IVCONCT BRAIN WO IVCON Radiology Routine Other hydrocephalus (HCC) 1 Occurrences starting 09/21/[address] [place] [address] Work Phone: comment on above:1 Occurrences starting 09/21/2022 until 10/21/2023 End: 85-33-1829WT BRAIN WO IVCONCT BRAIN WO IVCON Radiology Routine Other hydrocephalus (HCC) 1 Occurrences starting 12/14/[address] [place] [address] Work Phone: comment on above:1 Occurrences starting 12/14/2022 until 01/13/2024 End: 71-21-6413HG Chest W contrast IVCT CHEST W IVCON Radiology Routine Malignant neoplasm of urinary bladder, unspecified site (HCC) 1 Occurrences starting 09/12/2024 until 6Cmccullough[facility] memorial hospitaland ClinicComment on above:1 Occurrences starting 09/12/2024 until 6CT Chest W contrast IVCT CHEST W IVCON Radiology Routine History of bladder cancer 10/02/2024 2:29 PM EDT [facility] Work Phone: End: 84-70-4014NW CHEST W IVCONCT CHEST W IVCON Radiology Routine History of bladder cancer 1 Occurrences starting 01/09/2023 until 02/08/2024[facility] Work Phone: comment on above:1 Occurrences starting 01/09/2023 until 02/08/2024 End: 49-83-2495HA Guidance for stereotactic biopsy of Head-- WO contrastCT BRAIN STEREOLOCAL WO IVCON Radiology Routine Communicating hydrocephalus (HCC) 1 Occurrences starting 09/06/2023 until 5Csheltering arms hospital ClinicComment on above:1 Occurrences starting 09/06/2023 until 10/05/2024 End: 76-80-6501IU Head WO contrastCT BRAIN WO IVCON Radiology Routine Other hydrocephalus (HCC) 1 Occurrences starting 08/30/[address] [place] [address] Work Phone: Comment on above:1 Occurrences starting 08/30/2023 until 09/28/2024 End: 90-25-8057QM Head WO contrastCT BRAIN WO IVCON Radiology Routine Other hydrocephalus (HCC) 1 Occurrences starting 10/19/[address] [place] [address] Work Phone: Comment on above:1 Occurrences starting 10/19/2023 until 11/17/2024 End: 40-63-5695NO Head WO contrastCT BRAIN WO IVCON Radiology Routine Other hydrocephalus (HCC) 1 Occurrences starting 10/31/[address] [place] [address] Work Phone: Comment on above:1 Occurrences starting 10/31/2023 until 11/29/2024 End: 22-30-5364UO Head WO contrastCT BRAIN WO IVCON Radiology Routine Other hydrocephalus (HCC) 1 Occurrences starting 11/29/[address] [place] [address] Work Phone: comment on above:1 Occurrences starting 11/29/2023 until 12/28/2024 End: 67-51-6822QG Head WO contrastCT BRAIN WO IVCON Radiology Routine Other hydrocephalus (HCC) 1 Occurrences starting 01/10/[address] [place] [address] Work Phone: comment on above:1 Occurrences starting 01/10/2024 until 02/08/2025 End: 81-44-8235AT Head WO contrastCT BRAIN WO IVCON Radiology Routine Other hydrocephalus (HCC) 1 Occurrences starting 01/30/[address] [place] [address] Work Phone: comment on above:1 Occurrences starting 01/30/2024 until 02/28/2025 End: 36-83-2097TX Head WO contrastCT BRAIN WO IVCON Radiology Routine Other hydrocephalus (HCC) 1 Occurrences starting 06/18/[address] [place] [address] Work Phone: comment on above:1 Occurrences starting 06/18/2024 until 07/18/2025 End: 61-57-0970ME Head WO contrastCT BRAIN WO IVCON Radiology Routine Other hydrocephalus (HCC) 1 Occurrences starting 07/17/[address] [place] [address] Work Phone: comment on above:1 Occurrences starting 07/17/2024 until 08/16/2025 End: 08-06-5563WB Head WO contrastCT BRAIN WO IVCON Radiology Routine Other hydrocephalus (HCC) 1 Occurrences starting 08/01/[address] [place] [address] Work Phone: comnboa on above:1 Occurrences starting 08/01/2024 until 08/31/2025 End: 13-62-9255DK Head WO contrastCT BRAIN WO IVCON Radiology Routine Other hydrocephalus (HCC) 1 Occurrences starting 10/09/2024 until 11/08/2025[facility] Work Phone: comment on above:1 Occurrences starting 10/09/2024 until 11/08/2025 End: 01-98-2283CQ Kidney WO and W contrast IVCT UROGRAM WO/W IVCON Radiology Routine Malignant neoplasm of urinary bladder, unspecified site (HCC) 1 Occurrences starting 09/12/2024 until 10/12/2025[facility] Work Phone: comment on above:1 Occurrences starting 09/12/2024 until 10/12/2025T Unspecified body regionUniversity Hospitals Tripoint Medical Center Culture fngi mold/yeast prsmptv oth xcpt bloodTHE UNIVERSITY [facility]ONT [facility] NETWORK640 [employer] SYSTEM Work Phone: CYTOLOGY NON-GYNCYTOLOGY NON-CASKET COVERER Lab Routine History of bladder cancer Ordered: 01/09/2023[facility] Work Phone: comment on above:Ordered: 01/09/2023 End: 21-37-7112GYC COMPLETEECG COMPLETE ECG Routine Communicating hydrocephalus (HCC) 1 Occurrences starting 09/06/2023 until 09/05/2024[facility]edoComment on above:1 Occurrences starting 09/06/2023 until 09/05/2024 End: 11-25-4330JTO DIAGNOSTICEGD DIAGNOSTIC Endoscopy Routine Nausea and vomiting, unspecified vomiting type 1 Occurrences starting 08/23/2021 until 08/23/2022[facility] Work Phone: Comment on above:1 Occurrences starting 08/23/2021 until 08/23/2022 End: 64-82-7872IBN(NEURO/NI)EMG(NEURO/NI) EMG Routine Spasticity 1 Occurrences starting 03/18/2024 until 5CRegency Hospital ToledoComment on above:1 Occurrences starting 03/18/2024 until 03/18/2025 End: 73-26-2254Efsbsez emptying imaging studyNM GASTRIC EMPTYING SOLID Radiology Routine Early satiety Nausea 1 Occurrences starting 08/23/2021 until 09/22/2022 [facility] Work Phone: Comment on above:1 Occurrences starting 08/23/2021 until 09/22/2022Laps insertion tunneled intraperitoneal catheterLAPAROSCOPIC INSERTION OF INTRAPERITONEAL CANNULA OR CATHETER, PERMANENT Communicating hydrocephalus (HCC)[facility] End: 98-84-1357BR Brain WO and W contrast IVMRI BRAIN WO/W IVCON Radiology Routine 1 Occurrences starting 09/18/2023 until 10/17/2024[facility] Work Phone: Comment on above:1 Occurrences starting 09/18/2023 until 10/17/2024 End: 74-51-4974GC Cervical spine WO and W contrast IVMRI CERVICAL SPINE WO/W IVCON Radiology Routine Hydrocephalus, adult (HCC) Meningitis, fungal Weakness of both lower extremities Spasticity 1 Occurrences starting 09/18/2023 until 10/17/2024[facility] ClinicComment on above:1 Occurrences starting 09/18/2023 until 10/17/2024 End: 71-27-0661RW Guidance for stereotactic localization of Brain-- WO and W contrast IVMRI BRAIN LOCALIZATION WO/W IVCON Radiology Routine Communicating hydrocephalus (HCC) 1 Occurrencesstarting 09/06/2023 until 10/05/2024[facility] ClinicComment on above:1 Occurrences starting 09/06/2023 until 10/05/2024 End: 13-46-9295VR Lumbar spine W contrast IVMRI LUMBAR SPINE PRE-OP LOCALIZATION W IVCON Radiology Routine Hydrocephalus, adult (HCC) Meningitis, fungal Weakness of both lower extremities Spasticity 1 Occurrences starting 09/18/2023 until 10/17/2024[facility] ClinicComment on above:1 Occurrences starting 09/18/2023 until 10/17/2024 End: 53-32-7552BA Thoracic spine WO and W contrast IVMRI THORACIC SPINE WO/W IVCON Radiology Routine Hydrocephalus, adult (HCC) Meningitis, fungal Weakness of both lower extremities Spasticity 1 Occurrences starting 09/18/2023 until 5[place] ClinicComment on above:1 Occurrences starting 09/18/2023 until 10/17/2024 End: 02-59-2048Kjg spinal canal cervical w/o & w/contr matrlMRI CERVICAL SPINE WO/W IVCON Radiology Routine Cervicalgia 1 Occurrences starting 07/19/2022 until 4C[facility] Work Phone: Comment on above:1 Occurrences starting 07/19/2022 until 08/18/2023 End: 54-94-1677KMF MACULA CIRRUS OU (BOTH EYES)OCT MACULA CIRRUS OU (BOTH EYES) OPHT Imaging Routine Combined forms of age-related cataract of left eye Combined forms of age-related cataract of right eye 1 Occurrences starting 11/13/2024 until 05/07/2026[facility] Work Phone: Comment on above:1 Occurrences starting 11/13/2024 until 05/07/2026Pulse volume recorder pneumoplethysmographyUniversity Hospitals Tripoint Medical CenterREFER FOR ADMIT INTERVIEWREFER FOR ADMIT INTERVIEW Procedures Routine Communicating hydrocephalus (HCC) Ordered: 09/06/2023[facility] Comment on above:Ordered: 09/06/2023 End: 68-29-2425Brzfzplpr colonoscopyCOLONOSCOPY SCREENING Endoscopy Routine Encounter for screening for malignant neoplasm of colon 1 Occurrences starting 08/23/2021 until 08/23/2022[facility] Work Phone: Comment on above:1 Occurrences starting 08/23/2021 until 08/23/2022 End: 11-77-7720Obascrtm magnetic resonance procedureMRI LUMBAR SPINE PRE-OP LOCALIZATION W IVCON Radiology Routine Cervicalgia 1 Occurrences starting until [address] [place] [address] Work Phone: comment on above:1 Occurrences starting 07/19/2022 until 08/18/2023Ureteroenterostomy anast ureter intestineTHE [employer] Work Phone: Ureterolysis w/worpsg ureter retroperit fibrosisTHE [employer] Work Phone: URINALYSIS, REFLEX MICROSCOPICURINALYSIS, REFLEX MICROSCOPIC Lab Routine Screening for genitourinary condition Ordered: 09/12/2023[facility] Work Phone: comment on above:Ordered: 09/12/2023 End: 63-59-4576Usysn test visual color cmprsn methsTHE [facility] [employer] Work Phone: End: 93-09-5008HY Kidney - bilateral and Urinary bladderUS KIDNEY/BLADDER Radiology Routine History of bladder cancer 1 Occurrences starting 09/14/2023 until 5C[facility] Work Phone: comment on above:1 Occurrences starting 09/14/2023 until 10/13/2024US Kidney - bilateral and Urinary bladderUS KIDNEY/BLADDER Radiology Routine History of bladder cancer 10/04/2023 3:25 PM [facility] Work Phone: US Lower extremity vein - bilateralUniversity Hospitals Tripoint Medical CenterXR Ankle - left AP and Lateral and obliqueXR ANKLE GENERAL 3V AP/LAT/OBL LEFT Radiology Routine Tibia/fibula fracture, left, closed, initial e ncounter 10/25/2023 12:01 PM [facility] and Lateral and obliqueXR ANKLE GENERAL 3V AP/LAT/OBL LEFT Radiology Routine Tibia/fibula fracture, left, closed, initial encounter 11/27/2023 9:01 AM [facility] End: 58-95-1312UZ Femur - left AP and LateralXR FEMUR GENERAL 2V AP/LAT LEFT Radiology Routine Tibia/fibula fracture, left, closed, initial encounter 1 Occurrences starting 08/27/[address] [place] [address] Work Phone: comment on above:1 Occurrences starting 08/27/2024 until 09/26/2025XR Femur - left AP and LateralXR FEMUR GENERAL 2V AP/LAT LEFT Radiology Routine Tibia/fibula fracture, left, closed, initial encounter 09/11/2024 11:00 AM [facility] Work Phone: End: 96-52-2580QX Femur - left AP and LateralXR FEMUR GENERAL 2V AP/LAT LEFT Radiology Routine Closed fracture of distal end of left femur, unspecified fracture morphology, initial encounter ([facility]) 1 Occurrences starting 12/11/[address] [place] [address] Work Phone: comxklg on above:1 Occurrences starting 12/11/2024 until 01/10/2026 End: 44-68-2917OV GI SMALL BOWEL FOLLOW-THRUXR GI SMALL BOWEL FOLLOW-THRU Radiology Routine Small bowel obstruction ([facility]) 1 Occurrences starting 12/14/[address] [place] [address] Work Phone: comment on above:1 Occurrences starting 12/14/2021 until 01/13/2023 End: 89-25-2574BN Knee - left AP and LateralXR KNEE LIMITED 2V AP/LAT LEFT Radiology Routine Closed nondisplaced transverse fracture of left patella, initial encounter 1 Occurrences starting 06/21/[address] [place] [address] Work Phone: Comment on above:1 Occurrences starting 06/21/2023 until 07/20/2024 End: 14-34-5458VM Knee - left AP and LateralXR KNEE LIMITED 2V AP/LAT LEFT Radiology Routine Closed nondisplaced transverse fracture of left patella, initial encounter 1 Occurrences starting 08/14/[address] [place] [address] Work Phone: Comment on above:1 Occurrences starting 08/14/2023 until 09/12/2024XR Knee - left AP and LateralXR KNEE LIMITED 2V AP/LAT LEFT Radiology Routine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 removed at recommendation of a neurologist at [facility], then replaced at [facility] & she has had R sided [...] Astrid Nava MD 12/23/24 [facility] Telephone encounter Note * Telephone Encounter - Clare Lin HUC - 12/12/2024 2:48 PM EDT Images from the original note were not included. DEEPAK Maloney [facility]08-29-2025 Miscellaneous Notes* Telephone Encounter - Clare Lin [...] been: PENDED. (Gordon: [id number]) JONNIE Rx #: [id number] Insurance Company Name: [employer] Patient ID number: [id number] Pharmacy Name: [facility] Telephone number: [phone] documented in this encounterMer[facility]08-29-2025 Telephone encounter Note * Telephone Encounter - Clare Lin HUC - 12/12/2024 12:40 PM EDT Prior authorization documentation Prior authorization process has been initiated for the following medication: Medication: Cresemba Dosage: 186mg Refills: 2 Provider: Bibiana The prior authorization has been: PENDED. (Gordon: BMEQVYEF) JONNIE Rx #: [id number] Insurance Company Name: [employer] Patient ID number: [id number] Pharmacy Name: [facility] Telephone number: [phone] [facility]08-28-2025 Telephone encounter Note* Telephone Encounter - Susanna Carranza PA-C - 12/11/2024 1:25 PM EDT Next available New patient Susanna Carranza AND Dr. Barksdale (Shamir appt about 4 weeks after my appt bc I am likely going to order more testing for her. No imaging. Spinal Arachnoid cyst, LE weakness [facility]08-28-2025 Miscellaneous Notes* Telephone Encounter - Susanna Carranza PA-C - 12/11/2024 1:25 PM EDT Next available New patient Susanna Carranza AND Dr. Barksdale (Vorster appt about 4 weeks after my appt bc I am likely going to order more testing for her. No imaging. Spinal Arachnoid cyst, LE weakness documented in this encounterMercy [facility]08-28-2025 NoteHNO ID: [id number] Author: DARYL MOREJON MD Service: ? Author [...] months Daryl Morejon MD [facility]opaedic Tra[facility] SurgerySaint [facility] [id number] History of Present illness Narrative* Daryl Morejon [...] MD Orthopaedic Trauma Surgery documented in this encounterMercy [facility]08-28-2025 History of Present illness Narrative* Charleen Moore RT(R) - 12/11/2024 9:40 AM EDT Radiology [...] PATIENT PRESENTS WITH AN IMPLANTABLE OR ATTACHED SUPERINTENDENT CEMETERY: No RADIOLOGY DEPARTMENT: General X-ray: Exam(s) Completed: Lower Extremity X- Ray(s): Femur, Left PERIPHERAL IV DATA: Not applicable SIGNED BY: RT Rabia(Randy) December 11, 2024 1:40 PM documented in this encounterMercy [facility]08-28-2025 NoteHNO ID: [id number] Author: CHARLEEN MOORE RT(Randy) Service: Radiology Author Type: Therapist Phys Type: Progress Notes Filed: 12/11/2024 13:40 Note [...] PATIENT PRESENTS WITH AN IMPLANTABLE OR ATTACHED SUPERINTENDENT CEMETERY: No RADIOLOGY DEPARTMENT: General X-ray: Exam(s) Completed: Lower Extremity X-Ray(s): Femur, Left PERIPHERAL IV DATA: Not applicable SIGNED BY: RT Rabia(Randy) December 11, 2024 1:40 [facility]08-27-2025 Progress note Author Sharan Dominguez [facility] CenterNote Date/TimeAugust 2024 11:22am [place] [address] Wound Center Provider Note Signed Patient: Chikis Tobar MR#: [id number] : 1965 Acct:[id number] Age/Sex: 59 / F Copies to: DO Sharan Goins APRN~ HPI Date of Visit Date of Visit: Date of Service: 12/10/2024 Time of Service: 11:20 Narrative HPI: 11/26/2024-[facility] wound center forevaluation and treatment of 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 This pressure injury has beenpresent for several months. We had previously been treating Chikis until she fell out of her wheelchair and sustained a distal femur fracture, and was subsequently transferred to [facility]. Upon discharge from there she was discharged to an SNF in [facility] andis now currently at an SNF in [facility]. Patient was recently evaluated by her [...] just below the knee. We will see Chkiis back in our office in 2 weeks. [...] alginate silver, bordered foam. Nursing staff at [facility] will continue to perform the dressing changes. We will see Chikis back in our office in 2 to 3 weeks. Subjective Pain Left Heel: Pain Intensity: 0 Wound/Ulcer History Mode of Arrival/ Air Brakes Inspector: Facility vehicle Assistive Device Used Today: Wheelchair Lives with:: Care/Nursing Facility Who helps w/ dressing change?: Nursing Facility Why Do You Need Help?: Can't Reach Ulcer, Limited mobility and Taxing effort to leave home Smoking Status: Never smoker [facility] Medical History Multiple rib fractures Left 3,4 [...] List clean-up per request of Phys. [facility] Asthma Problem List clean-up per request of Phys. [facility] Diabetes Problem List clean-up per request of Phys. [facility] Bladder cancer Problem List clean-up per request of Phys. [facility] Surgical History Fracture, femur, distal (~08/22/24) History [...] List clean-up per request of Phys. [facility] Family History Father Heart disease Mother Hypertension [...] topical cream with perineal applicator 1 applic IA BID-QID PRN hemorrhoids 10 days #30 grams [...] Stage 3 Bed Appearance: Beefy Red and Blanca Percent of Wound Bed Granulated/Red: 100 Percent [...] 12 Dictated By: Sharan Dominguez APRN DD/ 1120 Signed By: <Electronically signed by STEVEN Dominguez> 12/10/24 1122 [facility] Work Phone: 1(332) 990-400308-27-2025 [place] [id number] Wound Center Provider Note Signed Patient: Chikis Tobar MR#: [id number] : 1965 Acct:[id number] Age/Sex: 59 / F Copies to: DO Sharan Goins APRN~ HPI Date of Visit Date of Visit: Date of Service: 12/10/2024 Time of Service: 11:20 Narrative HPI: 11/26/2024-[facility] wound center forevaluation and treatment of 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 This pressure injury has beenpresent for several months. We had previously been treating Chikis until she fell out of her wheelchair and sustained a distal femur fracture, and was subsequently transferred to [facility]. Upon discharge from there she was discharged to an SNF in [facility] andis now currently at an SNF in [facility]. Patient was recently evaluated by her [...] alginate silver, bordered foam. Nursing staff at [facility] will continue to perform the dressing changes. We will see Chikis rooney in our office in 2 to 3 weeks. Subjective Pain Left Heel: Pain Intensity: 0 Wound/Ulcer History Mode of Arrival/ Air Brakes Inspector: Facility vehicle Assistive Device Used Today: Wheelchair Lives with:: Care/Nursing Facility Who helps w/ dressing change?: Nursing Facility Why Do You Need Help?: Can't Reach Ulcer, Limited mobility and Taxing effort to leave home Smoking Status: Never smoker [facility] Medical History Multiple rib fractures Left 3,4 [...] List clean-up per request of Phys. [facility] Surgical History Fracture, femur, distal (~08/22/24) History [...] Problem List clean-up per request of Phys. [facility] Family History Father Heart disease Mother [...] topical cream with perineal applicator 1 applic IA BID-QID PRN hemorrhoids 10 days #30 grams [...] Stage 3 Bed Appearance: Beefy Red and Blanca Percent of Wound Bed Granulated/Red: 100 Percent [...] Sharan Dominguez APRN DD/ 19 Signed By: 12/10/24 1122 [facility]08-25-2025 NoteHNO ID: [id number] Author: NEOL DANIELS MD Service: ? Author Type: Physician Type: Progress Notes Filed: 12/10/2024 11:40 Note Text: [facility] VIRTUAL FOLLOW UP APPOINTMENT I have communicated my name and active licensure. The patient's identity and physical location were verified at the time of this visit. 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 Patient experienced impaired mobility and ADLs after removal of shunt and noted minimal improvement in lower extremity function post shunt reimplantation. She was evaluated in [facility] spasticity clinic initially on 12/04/2023 for paraplegia and associated severe spasticity and flexor spasms. She was discharged home from [facility] rehab facility on 02/15/2024. She lives on [...] spasms and stiffness. She was admitted to [facility] from 08/22/24-08/29/24 for Left femur fracture s/p surgical fixation. She was discharged to acute inpatient rehab at [facility]. Subsequently she went to a SNF [...] meningitis, myelitis and hydrocephalus status post initial PSYCH NURSE shunt placement June 2022 and reimplantation in 10/15/2023. She has paraplegia with severe spasticity and flexor spasms which is limiting her functions and part (more content not included)...[facility]08-25-2025 History of Present illness Narrative* Noel Daniels MD - 12/08/2024 12:58 PM EDT Images from the original note were not included. [facility] VIRTUAL FOLLOW UP APPOINTMENT I have communicated my name and active licensure. The patient's identity and physical location wereverified at the time of this visit. Either the patient or their legal policy services representative has been informed of the risks [...] fungal meningitis, myelitis and hydrocephalus status post PSYCH NURSE shunt plac ement June 2022, externalization on 06/25/2023, removal 07/10/2023 and reimplantation on 10/15/2023. Patient experienced impaired mobility and ADLs after removal of shunt and noted minimal improvement in lower extremity function post shunt reimplantation. She was evaluated in [facility] initially on 12/04/2023 for paraplegia and associated severe spasticity and flexor spasms. She was discharged home from [facility] rehab facility on 02/15/2024. She lives on [...] spasms and stiffness. She was admitted to [facility] from 08/22/24-08/29/24 for Left femur fracture s/p surgical fixation.She was discharged to acute inpatient rehab at [facility]. Subsequently she went to a SNF [...] myelitis and hydrocephalus st atus post initial PSYCH NURSE shunt placement June 2022 and reimplantation in [...] Noel Daniels MD Physical Medicine & Rehab [facility] documented in this encounterMer[facility]08-19-2025 Telephone encounter Note * Telephone Encounter - Glory Pedraza RN - 12/02/2024 10:10 AM EDT Faxed last office visit notes and circled the insulin basal rate from the notes. Confirmation received. [facility]08-19-2025 Miscellaneous Notes* Telephone Encounter - Glory Pedraza [...] facility Fax insulin rate and notes to [phone] Patient has been identified by name and birthdate. Duration of symptoms: N/A Person calling: Caregiver Call: [phone] Was an appointment scheduled: No Closing statement: Results or non-symptom based questions: Thank you for calling [facility], your call will be returned within the next business day. Kaylene Godinez documented in this encounterMercy Health [facility]08-18-2025 Telephone encounter Note * Telephone Encounter - Ria Trujillo RN - 12/01/2024 2:54 PM EDT Forwarding to provider [facility]08-18-2025 Miscellaneous Notes* Telephone Encounter - Ria Trujillo RN - 12/01/2024 2:54 PM EDT Forwarding to provider documented in this encounterMercy [facility]08-15-2025 Telephone encounter Note * Telephone Encounter - Kaylene Godinez - 11/28/2024 1:39 PM EDT Yaneth the nurse with [facility] is calling Ruddy Gupta MD today with concern regarding Patient Question and requesting OV notes and insulin rate be sent to them to continue care for the patient while in the facility Fax insulin rate and notes to [phone] Patient has been identified by name and birthdate. Duration of symptoms: N/A Person calling: Caregiver Call: [phone] Was an appointment scheduled: No Closing statement: Results or non-symptom based questions: Thank you for calling [facility], your call will be returned within the next business day. 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 This pressure injury has beenpresent for several months. We had previously been treating Chikis until she fell out of her wheelchair and sustained a distal femur fracture, and was subsequently transferred to [facility]. Upon discharge from there she was discharged to an SNF in [facility] andis now currently at an SNF in [facility]. Patient was recently evaluated by her [...] Description: Intermittent Wound/Ulcer History Mode of Arrival/ Air Brakes Inspector: Facility vehicle Assistive Device Used Today: Wheelchair Lives with:: Care/Nursing Facility Who helps w/ dressing change?: Nursing Facility Why Do You Need Help?: Can't Reach Ulcer, Limited mobility and Taxing effort to leave home Smoking Status: Never smoker [facility] Medical History Multiple rib fractures Left 3,4 [...] Problem [facility] clean[facility] clean[facility] Diabetes Problem List clean-up per request of [facility] Bladder cancer Problem List clean-up [facility] of [facility] Surgical History Fracture, femur, distal (~08/22/24) [...] Problem List clean-up per request of Phys. [facility] Family History Father Heart disease Mother Hypertension [...] topical cream with perineal applicator 1 applic IA BID-QID PRN hemorrhoids 10 days #30 grams [...] Stage 3 Bed Appearance: Beefy Red and Blanca Percent of Wound Bed Granulated/Red: 100 Percent [...] <Electronically signed by STEVEN Dominguez> 11/26/24 0812 [facility] Work Phone: 1(826) 905-396608-13-2025 [place] [address] Wound Center Provider Note Signed Patient: Chikis Tobar MR#: [id number] : 1965 Acct:[id number] Age/Sex: 59 / F Copies to: DO Sharan Goins APRN~ HPI Date of Visit Date of Visit: Date of Service: 11/26/2024 Time of Service: 08:06 Narrative HPI: 11/26/2024-[facility] wound center forevaluation and treatment of 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 This pressure injury has beenpresent for several months. We had previously been treating Chikis until she fell out of her wheelchair and sustained a distal femur fracture, and [facility] [facility]. Upon discharge from there she was discharged to an SNF in [facility] andis now currently at an SNF in [facility]. Patient was recently evaluated by her [...] Description: Intermittent Wound/Ulcer History Mode of Arrival/ Air Brakes Inspector: Facility vehicle Assistive Device Used Today: Wheelchair Lives with:: Care/Nursing Facility Who helps w/ dressing change?: Nursing Facility Why Do You Need Help?: Can't Reach Ulcer, Limited mobility and Taxing effort to leave home Smoking Status: Never smoker [facility] Medical History Multiple rib fractures Left 3,4 [...] Problem List clean-up per request of Phys. [facility] Diabetes Problem List clean-up per request of Phys. [facility] Bladder cancer Problem List clean-up per request of Phys. [facility] Surgical History Fracture, femur, distal (~08/22/24) History [...] Problem List clean-up per request of Phys. [facility] Family History Father Heart disease Mother Hypertension [...] topical cream with perineal applicator 1 applic IA BID-QID PRN hemorrhoids 10 days #30 grams [...] Stage 3 Bed Appearance: Beefy Red and Blanca Percent of Wound Bed Granulated/Red: 100 Percent [...] Sharan Dominguez APRN DD/ 5 Signed By: 11/26/24811 [facility]08-06-2025 Evaluation note* Diagnosis Onset Date Resolution Status Admit Date Chronic venous insufficiency acuteAugust 2024 10:05amFracture, femur, distalMay, 5acuteAugust 2024 10:05amHTN (hypertension)acuteAugust 2024 10:05amHydrocephalusacute [employer] 2024 10:05amMultiple rib fracturesacuteAugust 2024 10:05am Peripheral artery diseaseacuteAugust 2024 10:05amPressure injury of left heel, stage 3acuteAugust 2024 10:05amSpastic hypertoniaacuteAugust 2024 10:05amTransitional cell bladder canceracuteAugust 2024 10:05amType 1 diabetes mellitus with diabetic peripheral angiopathy without gangreneacute [employer] 2024 10:05amType 1 diabetes mellitus with hyperglycemiaacuteAugust [...] 1 diabetes mellitus with hyperglycemiaacuteSeptember 2024 11:22am [facility] Work Phone: 1(550) 710-168808-06-2025 Evaluation note* Diagnosis Onset Date Resolution Status Admit Date Chronic venous insufficiency acuteAugust 2024 10:05amFracture, femur, distalMay, 2025acuteAugust 2024 10:05amHTN (hypertension)acuteAugust 2024 10:05amHydrocephalusacute [employer] 2024 10:05amMultiple rib fracturesacuteAugust 2024 10:05am Peripheral artery diseaseacuteAugust 2024 10:05amPressure injury of left heel, stage 3acuteAugust 2024 10:05amSpastic hypertoniaacuteAugust 2024 10:05amTransitional cell bladder canceracuteAugust 2024 10:05amType 1 diabetes mellitus with diabetic peripheral angiopathy without gangreneacute November 19, 2024 10:05amType 1 diabetes mellitus with hyperglycemiaacuteAugust 2024 10:05amVitamin B12 deficiencyacuteAugust 2024 10:05amChronic venous insufficiencyacuteSeptember 2024 11:22amHTN (hypertension)acute December 26, 2024 11:22amHydrocephalusacuteSeptember 2024 11:22am Peripheral artery diseaseacuteSeptember 2024 11:22amPressure injury of left heel, stage 1acuteSeptember 2024 11:22amSpastic hypertoniaacute December 26, 2024 11:22amType 1 diabetes mellitus with diabetic peripheral angiopathy without gangreneacuteSept2024 11:22amType 1 diabetes mellitus with hyperglycemiaacuteSeptember 2024 11:22amChronic venous insufficiencyacuteSeptember 2024 11:04amImpaired mobility and ADLsacute December 31, 2024 11:04amLymphedemaacuteSeptember 2024 11:04amPressure injury of left heel, stage 3acuteSeptember 2024 11:04amType 1 diabetes mellitus with diabetic peripheral angiopathy without gangreneacuteSeptember 2024 11:04am [facility] Work Phone: 1(534) 391-232407-23-2025 Telephone encounter Note* Telephone Encounter - Ria Trujillo RN - 11/05/2024 10:02 AM EDT Forwarding to provider [facility]07-23-2025 Miscellaneous Notes* Telephone Encounter - Ria Trujillo RN - 11/05/2024 10:02 AM EDT Forwarding to provider documented in this encounterMer[facility]-2025 NoteHNO ID: [id number] Author: JAMIE MCCARTY MD Service: ? Author [...] was performed and she was transferred to [facility]. She was found to have DKA. A CT head showed hydrocephalus with MRI on May 29, 2022 showing multiple areas of enhancement in the anterior sabra, medulla, and in the spine at the level of C7-T3 and L1-S2. Multiple taps were performed and were unsuccessful. A PSYCH NURSE shunt was placed and patient underwent a [...] lobes (8 mm). LFTs 08/16 normal . PSYCH NURSE shunt was adjusted from 4 to 7 Posaconazole level 2.4 on 08/21/22 Developed a facial rash in September 2022, mainly the malar area, a few spots on the forehead. Dx'd with rosacea by PCP and started on metronidazole gel. She was seeing wound care at [facility] for her sacral area ulcer. Rx'd [...] and ambulatory, using a cane PRN. No PSYCH NURSE shunt issues. Balance has improved but still [...] prior week without d (more content not included)...[facility]07-09-2025 NoteHNO ID: [id number] Author: BIANCA LITTLE PA-C Service: ? Author Type: Physician Keypuncher Type: Progress Notes Filed: 12/10/2024 11:03 Note [...] 02/16/2021 Palpitations 02/16/2021 Past Surgical History: PAST BBOO (more content not included)...[facility]07-09-2025 History of Present illness Narrative* Bianca Little [...] - Low Bianca Little PA-C Recording using [employer] software for draft documentation of the visit was discussed with the patient/authorized policy services representative; all questions welcomed and answered. Patient/authorized policy services representative agreed to proceed documented in this encounterMer[facility]07-02-2025 History of Present illness Narrative* Peterson Gonsalez MD - 10/15/2024 12:20 PM EDT [facility] VIRTUAL VISIT REASON [...] LPs, meningeal biopsy (positive for fungal hyphae), PSYCH NURSE shunt placement with clinical improvement with this [...] evidence of new intra-abdominal/pelvic abnormalities Admitted at [facility] 06/25/2023 for SBO s/p ex lap, RONALD, bilateral ureteral reimplantation with stent placement (removed 07/26/2023). Underwent PSYCH NURSE shunt replacement 10/11/2023. Reported initial improvement but [...] 01/09/2022 7.40 7.35 - 7.45 Final Specific [place], Ur Date Value Ref Range Status 08/26/2024 [...] s/p ex lap, [facility] Hydronephrosis Pulmonary nodules Reviewed imaging, hydronephrosis [...] months with CT chest and renal US. IJenny, performed data extraction and record review under the direction of Dr. Gonsalez. Electronically signed, Yenifer Ellisone STAFF PHYSICIAN NOTE OF PERSONAL INVOLVEMENT IN [...] visit. Either the patient or their legal policy services representative has been informed of the risks [...] serious condition or a complex condition. Peterson Gonsalez MD Medical Decision Making: Problems: Moderate: 1+ chronic illnesses with change Data: Unique test result(s) reviewed: 2 Unique test(s) ordered: 1 Risk: Low: Low risk from testing/treatment Medical Decision Making Level: 4 - Moderate documented in this encounterMercy [facility]07-02-2025 NoteHNO ID: [id number] Author: PETERSON GONSALEZ MD Service: ? Author Type: Physician Type: Progress Notes Filed: 10/15/2024 13:03 Note Text: [facility] VIRTUAL VISIT REASON [...] LPs, meningeal biopsy (positive for fungal hyphae), PSYCH NURSE shunt placement with clinical improvement with this [...] evidence of new intra-abdominal/pelvic abnormalities Admitted at [facility] 06/25/2023 for SBO s/p ex lap, RONALD, bilateral ureteral reimplantation with stent placement (removed 07/26/2023). Underwent PSYCH NURSE shunt replacement 10/11/2023. Reported initial improvement but [...] 01/09/2022 7.40 7.35 - 7.45 Final Specific [place], [place] Date Value Ref Range Status 08/26/2024 [...] New moderate right hydrour (more content not included)...[facility]06-26-2025 NoteHNO ID: [id number] Author: MARLENE CORDERO PA-C Service: ? Author Type: Physician Keypuncher Type: Progress Notes Filed: 10/09/2024 13:55 Note Text: Recording using [employer] software for draft documentation of the visit was discussed with the patient/authorized policy services representative; all questions welcomed and answered. 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 Chikis's shunt was previously removed at [facility] on 07/10/23 following surgery for bowel obstruction [...] with a history of communicating hydrocephalus. Her PSYCH NURSE shunt was removed on 07/10/23 following laparotomy [...] type: Certas Initial settin New settin [facility] History of Present illness Narrative* Marlene Cordero PA-C - 10/09/2024 1:18 PM EDT Recording using ambient icix software for draft documentation of the visit was discussed with the patient/authorized policy services representative; all questions welcomed and answered. 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 Chikis's shunt was previously removed at [facility] on 07/10/23 following surgery for bowel obstruction [...] with a history of communicating hydrocephalus. Her PSYCH NURSE shunt was removed on 07/10/23 following laparotomy [...] settin Marlene Cordero PA-C documented in this encounterMercy Health [facility]06-19-2025 History of Present illness Narrative* Carolyn Echevarria RT(R) - 10/02/2024 1:45 PM EDT Radiology [...] PATIENT PRESENTS WITH AN IMPLANTABLE OR ATTACHED SUPERINTENDENT CEMETERY: No RADIOLOGY DEPARTMENT: CT; Exam(s) Completed: Chest and Urogram PERIPHERAL IV DATA: Site assessment: Clean,Dry and Intact, Site disposition Discontinued SIGNED BY: RT Lisa(R) October 02, 2024 1:35 PM * Marlena [...] 2024 TIME: 2:03 PM documented in this encounterMercy Health [facility]06-19-2025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 myelitis and hydrocephalus st atus post initial PSYCH NURSE shunt placement June 2022 and reimplantation in [...] Noel Daniels MD Physical Medicine & Rehab [facility] documented in this encounterMercy Health – The [facility]12-26-2024 NoteHNO ID: [id number] Author: MARLENE CORDERO PA-C Service: ? 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 Chikis's shunt was previously removed at [facility] on 07/10/23 following surgery for bowel obstruction [...] with a history of communicating hydrocephalus. 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 Chikis's shunt was previously removed at [facility] on 07/10/23 following surgery for bowel obstruction [...] with a history of communicating hydrocephalus. Her PSYCH NURSE shunt was removed on 07/10/23 following laparotomy [...] settin Marlene Cordero PA-C documented in this encounterMercy Health – The [facility]12-26-2024 History of Present illness Narrative* Michelle Wood [...] PATIENT PRESENTS WITH AN IMPLANTABLE OR ATTACHED SUPERINTENDENT CEMETERY: No RADIOLOGY DEPARTMENT: CT; Exam(s) Completed: Brain PERIPHERAL IV DATA: Not applicable SIGNED BY: LISY Post) April 10, 2024 12:53 PM documented in this encounterMercy Health – The [facility] Hospital12-26-2024 NoteHNO ID: [id number] Author: MICHELLE WOOD RT (R) Service: Radiology Author Type: Therapist Phys Type: Progress Notes Filed: 04/10/2024 12:54 Note [...] PATIENT PRESENTS WITH AN IMPLANTABLE OR ATTACHED SUPERINTENDENT CEMETERY: No RADIOLOGY DEPARTMENT: CT; Exam(s) Completed: Brain PERIPHERAL IV DATA: Not applicable SIGNED BY: LISY Post) April 10, 2024 12:53 [facility]12-26-2024 NoteHNO ID: [id number] Author: JAMIE MCCARTY MD Service: ? Author [...] was performed and she was transferred to [facility]. She was found to have DKA. A CT head showed hydrocephalus with MRI on May 29 showing multiple enhancement in the anterior sabra, medulla, and in the spine at the level of C7-T3 and L1-S2. Multiple taps were performed and were unsuccessful. A PSYCH NURSE shunt was placed and patient underwent a [...] lobes (8 mm). LFTs 08/16 normal . PSYCH NURSE shunt was adjusted from 4 to 7 Posaconazole level 2.4 on 08/21/22 Developed a facial rash in September 2022, mainly the malar area, a few spots on the forehead. Dx'd with rosacea by PCP and started on metronidazole gel. She was seeing wound care at [facility] for her sacral area ulcer. Rx'd [...] and ambulatory, using a cane PRN. No PSYCH NURSE shunt issues. Balance has improved but still [...] prior week without dire (more content not included)...[facility]12-26-2024 History of Present illness Narrative* Jamie Mccarty [...] was performed and she was transferred to [facility]. She was found to have DKA. A CT head showed hydrocephalus with MRI on May 29 showing multiple enhancement in the anterior sabra, medulla, and in the spine at the level of C7-T3 and L1-S2. Multiple taps were performed and were unsuccessful. A PSYCH NURSE shunt was placed and patient underwent a [...] lobes (8 mm). LFTs 08/16 normal . PSYCH NURSE shunt was adjusted from 4 to 7 Posaconazole level 2.4 on 08/21/22 Developed a facial rash in September 2022, mainly the malar area, a few spots on the forehead. 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 She was seeing wound care at [facility] for her sacral area ulcer. Rx'd [...] and ambulatory, using a cane PRN. No PSYCH NURSE shunt issues. Balance has improved but still [...] MRI of the T spine. Admitted to [facility] 06/24-07/13/2023 Presented to [facility] 06/24 with c/f possible SBO. Patient was [...] spasms in both legs started after the PSYCH NURSE shunt was removed at [facility], so it seemed somehow related. The posaconazole [...] help decide length of therapy of posaconazole. PSYCH NURSE shunt replacement was being planned for November2023. She suffered a fall after an episode of leg spasms. Admitted to local hospital and dx'd with comminuted fracture of Left distal tibial bone. From there, she was transferred to [facility] She went to [place] 10/08/23 intramedullary nail placement to the Left tibia. CT head 10/08 with evidence of interval increased dilation of the ventricular systems suggestive communicating hydrocephalus with mildtransependymal edema Transferred to [facility]. Seen by ID Dr Dominic Pablo for [...] continue same and FU with ID at [facility] Patient contacted me on MyChart on 10/31/23 [...] her feet was the day after the PSYCH NURSE shunt was reimplanted (10/16/23). The next day, therapy came and spasms started again. Some have theorized that the spasms were controlled by the anesthesia in the OR the day before. Then she went to [facility], and was able to take a few steps with the parallel bars but nothing like at [facility] on POD [address]. Plan was to try a ketty system to pull her along when walking, but never did it. No SHANNON. Shunt 6--> 7. CTH done at rehab after the MRI on 10/18/23; told there was too much fluid being drained and adjusted to 7 (which was the setting of the previous shunt before it was removed at [facility]) Still had decreased sensation in both legs. [...] in pain ID clinic 12/21/23-- was at [facility]. Saw Neurology same day, Dr Butler. She [...] with Botox ID clinic 01/10/24-- still at [facility], on prednisone taper and baclofen. Pain had [...] hygroma resolved.Certas valve shunt was adjusted from to. Plan was for Botox the next day for spasms, continue off the gabapentin and monitor LE edema, and continue posaconazole-- ? isavuconazole a consideration depending on clinical course and next MRIs, given some degree of persistent leptomeningeal enhancement. D/C d home from [facility]. Some delay in getting the dressings changed over Left heel which were being changed daily at [facility]. When [facility] nurse changed dressing after 5 days, there was some drainage. She sent me a photo of the left heel 02/19/24 on MyChart: Advised her to see Wire Technician-- she made appt to see Podiatry in [place]. Underwent office debridement and she sent me FU photo 03/17/24: Currently (04/10/24) - was discharged home from [facility] 02/14. Getting outpatient PT and OT, says [...] 2024 - notes that one time at [facility] the staff had withheld the noxafil because [...] 96% SKIN: no rosacea H: right occipital PSYCH NURSE shunt palpable along its track and nontender. [...] Fraction 0.0 - 16.3 U/L 0.0 Result (UMPA) No M protein is identified. A poorly [...] gammopathy. Clinical correlation is necessary. Staff Review ([facility]) Reviewed by Qian Hogan M.D. IgG 700 - 1,600 mg/dL 745 IgA 70 - 400 mg/dL 177 IgM 40 - 230 mg/dL 101 [place] Free, Serum 3.3 - 19.4 mg/L 13.5 Lambda Free, Serum 5.7 - 26.3 mg/L 10.4 K/L Ratio, Serum 0.26 - 1.65 1.30 MPA Result No M protein is identified. No M protein is identified. Staff Review ([facility]) Reviewed by Qian Hogan M.D. Posaconazole, Serum 0.7 - 3.9 ug/mL 2.5 TSH 0.270 - 4.200 mIU/L 1.110 Vitamin B12 232 - 1,245 pg/mL 555 Methylmalonic Acid <=0.40 umol/L 0.[address] [facility] Reference Range & Units 06/28/22 14:58 [...] - 90 % 98 (H) 80 71 [place]%, CSF 10 - 50 % 2 (L) [...] culture negative 07/02 CSF culture 07/02 NG Pruden fungal PCR PCR from biopsy tissue both negative ([facility]) 06/28 CSF (labelled lumbar puncture but is from EVD): MNGS negative 06/27 CSF (labelled lumbar puncture but is from EVD): No growth, Crypto antigen negative 06/26 OR cultures Dural/subdural itradural thoracic lesion Tissue: gram stain negative. NGTD Wound culture: gram stain negative. NGTD AFB smear no organsims. Fungal: smear: no fungus seen Pruden bacterial, fungal and AFB PCRs: negative (entire [...] DKA - 05/29/22 MRI brain from [facility] with leptomeningeal enhancement, communicating hydrocephalus - 06/07/22 MRI spine with diffuse LMD throughout spinal cord and cauda equina with loculated CSF in anterior thecal sac at C7-T3 with posterior displacement of cord and cord compression. T4-9 intramedullary hyperintensity suggesting cord edema due to compression superiorly - Course complicated by unsuccessful LP attempts at [facility] then transferred to [facility] - s/p cisternal tap 06/16/22 with limited [...] with fungal hyphae confirmed on multiple sections. Pruden PCR and cultures all negative, including the tissue block in its entirety sent for universal fungal PCR and negative - CSF 06/28/22 negative on Next Gen sequencing - posaconazole started 06/29/22 - s/p PSYCH NURSE shunt on 07/10.and improving MS since then. - small subdural hygromas over frontal convexities on CT 08/16/22, shunt settings adjusted - facial rash in September 2022, mainly the malar area, a few spots on the forehead. Dx'd with rosacea by PCP and started on metronidazole gel, improved - sacral area ulcer, saw wound care at Formerly [facility]. Rx'd with medical honey gel and [...] From there, she was transferred to [facility] She underwent intramedullary nail placement to the Left tibia on 10/08/2023. 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 Seen by ID Dr Dominic Pablo for [...] continue same and FU with ID at [facility]. Ongoing leg spasms, gabapentin and Robaxin not [...] in 07/2023 a few days after the PSYCH NURSE shunt was removed in 06/2023 remains unclear-- [...] the patient, review of multiple MRI scans, egcf-aw-ydgj patient care, completing clinical documentation, obtaining and/or reviewing separately obtained history, performing a medically appropriate examination, counseling and educating the patient/family/caregiver, ordering medications, tests, or procedures, independently interpreting results (not separately reported), communicating results to the patient/family/caregiver, and care coordination (not separately reported) documented in this encounterMercy [facility]12-20-2024 Telephone encounter Note * Telephone Encounter - [...] and agrees with plan No further concerns [facility] Work Phone: [phone] Miscellaneous Notes* Telephone Encounter - Sheree Montez [...] 04/04/2024 4:13 PM EST [facility] Last f visit on 01/11/24. [...] to schedule her? Pleaseadvise. documented in this encounterMercy Health – [facility]12-20-2024 Telephone encounter Note * Telephone Encounter - Leonarda Rae - 04/04/2024 4:13 PM EST [facility]; Last f visit on 01/11/24. [...] Is it okay to schedule her? Pleaseadvise. [facility]12-06-2024 Instructions* Patient Instructions* Reggie Butler MD - 03/21/2024 11:27 AM EST It was a pleasure to see you today. Here is a reminder of the plan we made: 03/21/2024 Visit: Consider retrial of gabapentin Continue aggressive PT and OT Continue Botox injections Consider [facility] Follow up in 4 months virtually documented in this encounterMercy Health – The [facility]12-06-2024 NoteHNO ID: [id number] Author: REGGIE BUTLER MD Service: ? Author Type: Physician Type: Progress Notes Filed: 03/21/2024 13:29 Note Text: [facility] - FOLLOW UP EVALUATION Kalli Simons MD [address] [address] Dear Kalli Simons MD: I had the [...] Dr. Rosado or myself in 3 months [place] immediate relief of muscle spasms that wore [...] Row Office Visit from 03/21/2024 in [facility] Office Visit from 11/29/2023 in [facility] T Score 39.8 34.9 [...] meningitis in May 2022 c/b hydrocephalus s/p PSYCH NURSE shunt and sub (more content not included)...[facility]12-06-2024 History of Present illness Narrative* Reggie Butler MD - 03/21/2024 11:11 AM EST [facility] - FOLLOW UP EVALUATION Kalli Simons MD [facility] [address] Dear Kalli Simons MD: I had the [...] Dr. Rosado or myself in 3 months [place] immediate relief of muscle spasms that wore [...] Row Office Visit from 03/21/2024 in [facility] Office Visit from 11/29/2023 in [facility] T Score 39.8 34.9 [...] meningitis in May 2022 c/b hydrocephalus s/p PSYCH NURSE shunt and subsequent removal in June 2023 after a bowel obstruction at [facility]. She developed progressive weakness and involuntary movements [...] Associate Staff Movement disorders Center of [facility] documented in this encounterMercy Health – The Jewish Hospital12-03-2024 NoteCholesterol Ratio (LDL/HDL)March 18, 2024 10:45am0.92<2.54Reference:1. National Cholesterol Education Program ATP III Guideline At-A-Glance Quick Desk Reference: National Heart, Lung, and Blood [place]. National Institutes of Health. 2000: NIH PublicationNo. 3305.2. An International Atherosclerosis Society position paper: global recommendations for the management of dyslipidemia: executive summary, Atherosclerosis. 2014: 232(2):410-413.[facility] Comment on above:Reference:1. National Cholesterol Education Program ATP III Guideline At-A-Glance Quick Desk Reference: National Heart, Lung, and Blood [place]. National Institutes of Health. 2001: [facility] PublicationNo. 330.2. An International Atherosclerosis Society position paper: global recommendations for the management of dyslipidemia: executive summary, Atherosclerosis. 2014: 232(2):410-413.03-18-2024 NoteCholesterol Ratio (LDL/HDL)March 18, 2024 10:45am0.92<2.54Reference:1. National Cholesterol Education Program ATP III Guideline At-A-Glance Quick Desk Reference: National Heart, Lung, and Blood [place]. National Institutes of Health. 2001: [facility] PublicationNo. 3305.2. An International Atherosclerosis Society position paper: global recommendations for the management of dyslipidemia: executive summary, Atherosclerosis. 2014: 232(2):410-413.[facility] CenterComment on above:Reference:1. National Cholesterol Education Program ATP III Guideline At-A-Glance Quick Desk Reference: National Heart, Lung, and Blood [place]. National Institutes of Health. 2001: NIH PublicationNo. 3305.2. An International Atherosclerosis Society position paper: global recommendations for the management of dyslipidemia: executive summary, Atherosclerosis. 2014: 232(2):410413. 03-18-2024 NoteCholesterol Ratio (LDL/HDL)March 18, 2024 10:45am0.92<2.54 Reference:1. National Cholesterol Education Program ATP III Guideline At-A-Glance Quick Desk Reference: National Heart, Lung, and Blood [place]. National Institutes of Health. 2001: NIH PublicationNo. -3305.2. An International Atherosclerosis Society position paper: global recommendations for the management of dyslipidemia: executive summary, Atherosclerosis. 2014: 232(2):410-413.[facility] CenterComment on above:Reference:1. National Cholesterol Education Program ATP III Guideline At-A-Glance Quick Desk Reference: National Heart, Lung, and Blood [place]. National Institutes of Health. 2001: NIH PublicationNo. 3305.2. An International Atherosclerosis Society position paper: global recommendations for the management of dyslipidemia: executive summary, Atherosclerosis. 2014: 232(2):410-413. 03-18-2024 NoteCholesterol Ratio (LDL/HDL)March 18, 2024 10:45am0.92<2.54 Reference:1. National Cholesterol Education Program ATP III Guideline At-A-Glance Quick Desk Reference: National Heart, Lung, and Blood [place]. National Institutes of Health. 2001: NIH PublicationNo. -3305.2. An International Atherosclerosis Society position paper: global recommendations for the management of dyslipidemia: executive summary, Atherosclerosis. 2014: 232(2):410-413.[facility] CenterComment on above:Reference:1. National Cholesterol Education Program ATP III Guideline At-A-Glance Quick Desk Reference: National Heart, Lung, and Blood W[place]. National Institutes of Health. 2001: NIH PublicationNo. 3305.2. An International Atherosclerosis Society position paper: global recommendations for the management of dyslipidemia: executive summary, Atherosclerosis. 2014: 232(2):410-413. 03-18-2024 History of Present illness Narrative* Shelbi [...] bowel in Jun 2023. She went to [facility], there was no bed in , transferred to [facility] for bowel obstruction. She had surgery (small [...] day 1 post op. Spasms recurred in rehab([facility]), she can move her feet/toes but could not ambulate, can take steps with parallel bars(L >R, has more difficulty with RLE). She was able to ambulate with platform walker upon discharge(02/15/24). She had home PT upon discharge but not enough hence lost what she has gained. She was in [place] [facility] on 02/07/24, had 'dizzy' - wavy [...] Abs Lymph 1.00 - 4.00 k/uL 1.37 Glasscock% % 11.6 Abs Glasscock <0.87 k/uL 0.55 Eosin% % 2.3 Abs [...] 5/5 Wrist Ext 5/5 5/5 Wrist Flex /5 5/5 Finger Ext /5 5/5 FDI /5 5/5 ADM 5/5 5/5 APB /5 5/5 FDP 2,3 5/5 5/5 FDP 4,5 5/5 5/5 FPL / 5/5 Hip Flexors 4+/5 5/5 *- hard to control from spasms Knee Extensors 5 5/5 Knee Flexors / 5/5 Ankle DF 3-4/5 * 4/5* Ankle PF /5 5/5 Toe Flexion 0-1/5 * 0-1/5* Toe [...] which included preparing to see the patient, xqwr-hu-yjjh patient care, completing clinical documentation, obtaining and/or [...] of clinic note to: 1. Chikis Tobar [id number] [facility] [address] 2. Marlene Cordero [id number] [address] [facility] [address] documented in this encounterMercy Health – The [facility]12-03-2024 NoteHNO ID: [id number] Author: SHELBI RAMOS MD Service: ? Author Type: Physician Type: Progress Notes Filed: 03/18/2024 10:22 Note Text: Neurology Clinic - March 18, 2024 Reason for visit: Ms. Toabr is referred by Marlene Cordero for my [...] bowel in Jun 2023. She went to [facility], there was no bed in , transferred to [facility] for bowel obstruction. She had surgery (small [...] day 1 post op. Spasms recurred in rehab([facility]), she can move her feet/toes but could [...] and 6 pm. posacon (more content not included)...[facility]11-11-2024 Evaluation note* Diagnosis Onset Date Resolution Status Admit Date Chronic venous insufficiency acuteNovember 2023 3:46pmFoot ulcer, leftacuteNovember 2023 3:46pm HTN (hypertension)acuteNovember 2023 3:46pmHydrocephalusacuteNovember 2023 3:46pmTibia fractureacuteNovember 2023 3:46pmType 1 diabetes mellitus with hyperglycemiaacuteNovember 2023 3:46pmChronic venous insufficiencyacuteJanuary 2024 1:15pmFoot ulcer, leftacuteJanuary 2024 1:15pmHTN (hypertension)acuteJanuary 2024 1:15pmHydrocephalusacute April 29, 2024 1:15pmTibia fractureacuteJanuary 2024 1:15pm Transitional cell bladder canceracuteJanuary 2024 1:15pmType 1 diabetes mellitus with hyperglycemiaacuteJanuary 2024 1:15pm [facility] Work Phone: 1(288) 576-731811-11-2024 Evaluation note* Diagnosis Onset Date Resolution Status Admit Date Chronic venous insufficiency acuteNovember 2023 3:46pmFoot ulcer, leftacuteNovember 2023 3:46pm HTN (hypertension)acuteNovember 2023 3:46pmHydrocephalusacuteNovember 2023 3:46pmTibia fractureacuteNovember 2023 3:46pmType 1 diabetes mellitus with hyperglycemiaacuteNovember 2023 3:46pmChronic venous insufficiencyacuteApruary 2024 1:15pmFoot ulcer, leftacuteJanuary 2024 1:15pmHTN (hypertension)acuteJanuary 2024 1:15pmHydrocephalusacute April 29, 2024 1:15pmTransitional cell bladder canceracuteJanuary 2024 1:15pmType 1 diabetes mellitus with diabetic peripheral angiopathy without gangreneacuteApruary 2024 1:15pmType 1 diabetes mellitus with hyperglycemiaacuteJanuary 2024 1:15pmChronic venous insufficiencyacute May 20, 2024 2:25pmImpaired mobility and ADLsacuteFebruary 2024 2:25pmLymphedemaacuteFebruary 2024 2:25pmPressure injury of left heel, unstageableacuteFebruary 2024 2:25pmType 1 diabetes mellitusacuteFebruary 2024 2:25pm [facility] Work Phone: 1(762) 463-252911-01-2024 NoteHNO ID: [id number] Author: ZHENG September,.SUPERVISOR NET MAKING Service: ? Author Type: Nurse Practitioner Type: Progress Notes Filed: 02/15/2024 21:48 Note Text: Connected Care Unit Discharge Summary SNF Connected Care Program [facility] [address], [address]) [place] [address] CONNECTED CARE DISCHARGE SUMMARY Service Date: 02/15/2024 Admission Date: 11/07/2023 Discharge Date: 02/15/2024 Facility: [facility] Level of Care: Skilled SNF Attending: Amelia Parisi D.O. Connected Care Primary Care Physician: Kalli Simons MD Principal Diagnosis: Obstructive hydrocephalus (hcc) (primary encounter diagnosis) Fungal meningitis S/p svp shunt Bilateral lower extremity edema Essential hypertension [...] L1-S2 spinal levels and underwent Certas RF PSYCH NURSE shunt with meningeal biopsy showing fungal hyphae elements. She was followed by ID at [facility] and was on posaconazole. She is s/p shunt externalization at [facility] (06/27/23) during abdominal surgery for SBO and eventual VPS explantation (07/10/23). She was originally scheduled for shunt reinternalization with Dr. Oconnor on 11/20/23. She fell due to leg spasms and presented to OSH ED and admitted on 10/07/23. Found to have L tibial fx s/p intramedullary nail Dr. Morejon at [facility] (10/08/23). She was then transferred to [facility] for shunt reimplantation. She is s/pVPS reimplantation [...] (Last Echo was ~ 2019 w/ her Administrative Law Judge in [place]). Pt is on ASA, Lisinopril, Toprol, Lasix. Recommended that patient establishes with a local advertising sales assistant . Echo was done ( ~ 02/04). Pt has made an appointment with Cardiology but couldn't get in until 05/29/2024. Pt states she will forward the ECHO to her Administrative Law Judge in [place] in the meantime. Was evaluated in ED on 02/06 due to blurred vision. Work up negative except for possible urine infection. Was treated in ED with Rocephin x 1 (more content not included)...[facility]10-30-2024 History of Present illness Narrative* Con Oconnor [...] with more than 50% of the total kdeq-zz-alog time of the visit in counseling / coordination of care. SIGNATURE: Con Oconnor MD DATE of SERVICE: February 13, 2024 documented in this encounterMercy Health [facility]10-28-2024 Instructions* Patient Instructions* Noel Daniels MD - [...] change in position Medications - Continue Baclofen [id number] and 10mg PRN dose of Baclofen at bedtime. Please contact our office via iRule or by phone at [phone] with any questions or concerns. If your health insurance changes before the next injections, please contact our office at [phone] as soon as possible so we can submit a new pre- authorization if needed. Please note that we may not be able to perform the injections if your insurance changes and the treatment is not pre-authorized. documented in this encounterMercy Health – The Jewish Hospital10-28-2024 History of Present illness Narrative* Noel Daniels MD - 02/11/2024 3:30 PM EDT Images from the original note were not included. PM&R VIRTUAL FOLLOW UP APPOINTMENT I have communicated my name and active licensure. The patient's identity and physical location wereverified at the time of this visit. Either the patient or their legal policy services representative has been informed of the risks [...] fungal meningitis, myelitis and hydrocephalus status post PSYCH NURSE shunt plac ement June 2022, externalization on 06/25/2023, removal 07/10/2023 and reimplantation on 10/15/2023. Patient experienced impaired mobility and functions after removal of shunt and noted minimal improvement in lower extremity function post shunt reimplantation. She was evaluated in PM&R spasticity clinic initially on 12/04/2023 for paraplegia and associated severe spasticity and flexor spasms. Sheis currently at residential facility. She received initial botulinum toxin A [...] myelitis and hydrocephalus st atus post initial PSYCH NURSE shunt placement June 2022 and reimplantation in [...] diagnosis) (M62.838) Spasm of muscle (G04.91) Myelitis ([facility]) (Z74.09, Z78.9) Impaired mobility and activities of [...] pressure relief when changing position Continue Baclofen [id number]. Ok to give 10mg PRN dose of Baclofen at bedtime. Explained to patient that phenol nerve block can be repeated once the effect starts to wean off andthere is no need to wait for 3 months. Patient will contact office when effect of phenol nerve block wears of. Time spent with patient: 30 mins Noel Daniels MD Physical Medicine & Rehab [facility] documented in this encounterMercy Health – The Jewish Hospital10-25-2024 History of Present illness Narrative* Con Oconnor MD - 02/08/2024 2:53 PM EDT CC: PSYCH NURSE shunt f/u HPI: Mrs Chikis Tobar comes to clinic today for surgical f/u. She had a PSYCH NURSE shunt reimplanted on 10/11/23. Chikis's shunt was previously removed at [facility] on 07/10/23 following surgery for bowel obstruction [...] with more than 50% of the total pogb-hf-ofhk time of the visit in counseling / coordination of care. SIGNATURE: Con Oconnor MD DATE of SERVICE: February 12, 2024 documented in this encounterMercy Health – The Jewish Hospital10-25-2024 Telephone encounter Note * Telephone Encounter - Marlene Cordero PA-C - 02/08/2024 11:50 AM EDT Call to Chikis, She will present for shunt adjustment today. Marlene Cordero PA-C [facility] Work Phone: [phone]) 709-525410-25-2024 Miscellaneous Notes* Telephone Encounter - Marlene Cordero PA-C - 02/08/2024 11:50 AM EDT Call to Chikis, She will present for shunt adjustment today. Marlene Cordero PA-C documented in this encounterMercy Health – The Jewish Hospital10-24-2024 NoteHNO ID: [id number] Author: KHANH ANDUJAR RT(Randy) Service: ? Author [...] PATIENT PRESENTS WITH AN IMPLANTABLE OR ATTACHED SUPERINTENDENT CEMETERY: No RADIOLOGY DEPARTMENT: General X-ray: Exam(s) Completed: Skull X-Ray- 5V SHUNT SERIES PERIPHERAL IV DATA: Not applicable SIGNED BY: RT Epifanio(R) February 07, 2024 11:31 [facility] [id number] SrapLTWH-NME-4 (AGENT OF COVID- 19) RNA: Not detected INFLUENZA A RNA: Not detected INFLUENZA B RNA: Not detected RESPIRATORY SYNCYTIAL VIRUS (RSV) RNA: Not detectedCold Bay HospitalComment on above:Performed By: #### [id number] ####[facility] LABORATORYCLIA [id number] [place] [address] [facility]10-24-2024 NoteHNO ID: [id number] Author: KHANH ANDUJAR RT(Randy) Service: ? Author [...] PATIENT PRESENTS WITH AN IMPLANTABLE OR ATTACHED SUPERINTENDENT CEMETERY: No RADIOLOGY DEPARTMENT: General X-ray: Exam(s) Completed: Skull X-Ray- 5 VIEW SHUNT SERIES PERIPHERAL IV DATA: Not applicable SIGNED BY: RT Epifanio(Randy) February 07, 2024 10:57 [facility] [id number] History of Present illness Narrative* Sharan Dominguez APRN.SUPERVISOR NET MAKING - 02/07/2024 4:44 PM EDT Images from the original note were not included. [facility] PROVIDER PROGRAM - FOLLOW UP VISIT PATIENT NAME: Chikis Tobar SERVICE DATE: 02/07/[address]24 PL[address] OF SERVICE FOR THIS VISIT: Shelter Facility ([address]), Facility Name: [facility] Level of Care: Skilled Asked to see [...] Bldg 02/11/2024 3:30 PM Noel Daniels MD [facility] 02/14/2024 6:[address] [facility] (I-STAT) AVXRCT [facility] 03/21/2024 11:00 AM Reggie Butler MD NREUS2 Mn S Bldg 04/10/2024 1:[address] 2 MAIN QB (I-STAT) RCTMN Mn Q Bldg 04/10/2024 2:00 PM Marlene Cordero PA-C NREUS2 Mn S Bldg 05/29/2024 1:00 PM Ruthy Jesus MD [facility] Miriam 07/01/2024 4:00 PM Katiana Huang APRN.SUPERVISOR NET MAKING ENDOAV Rej 09/03/2024 2:40 PM Ruddy Gupta [...] -Monitor for any s/s of infection- notify SUPERVISOR NET MAKING/MD of any pertinent findings -Continue current wound [...] which included preparing to see the patient, oabe-kg-epoz patient care, completing clinical documentation, reviewing separately [...] NAME: Chikis Tobar DATE: 02/07/2024 OFFICE #: [phone] PAGER/CELL: [phone] documented in this encounterMercy Health – The Jewish Hospital10-23-2024 Nurse Note* Jennifer Banerjee RN - 02/06/2024 11:34 AM EDT Images from the original note were not included. [facility]10-23-[facility] Nurse Note* Jennifer Banerjee RN - 02/06/2024 11:34 AM EDT Images from the original note were not included. documented in this encounterMercy Health – The Jewish Hospital10-23-2024 History of Present illness Narrative* Ruddy Gupta [...] and in 6 months with me . SIGNATURE Ruddy Gupta MD February 06, 2024 documented in this encounterMercy Health – The Jewish Hospital10-22-2024 Telephone encounter Note * Telephone Encounter - Kacie Peterson HUC - 02/05/2024 9:42 AM EDT Jamie Mccarty MD [place], April [facility] July Can you call pt and see if she can get morning blood work this week Wd 02/05 around 8 AM. This is a posaconazole level If she takes her posaconazole normally in the morning she should hold off on taking the posaconazole until after the blood work is done. She has appt with NSGY at 8:30 AM that day thanks [facility]10-22-2024 Miscellaneous Notes* Telephone Encounter - Kacie Peterson HUC - 02/05/2024 9:42 AM EDT Jamie Mccarty MD [place], April [facility] July Can you call pt and [...] AM that day thanks documented in this encounterMercy Health – The Jewish Hospital10-17-2024 History of Present illness Narrative* Sharan Dominguez APRN.[facility] - 01/31/2024 1:52 PM EDT Images from the original note were not included. [facility] PROVIDER PROGRAM - FOLLOW UP VISIT PATIENT NAME: Chikis Tobar SERVICE DATE: 01/31/[address]24 PLACE OF SERVICE FOR THIS VISIT: Shelter Facility ([address]), Facility Name: [facility] Level of Care: Skilled Asked to see [...] Rej 02/11/2024 3:30 PM Noel Daniels MD [facility] 02/14/2024 6:[address] [facility] [...] heel, unstageable (HCC) (primary encounter diagnosis) Comment: No change in [...] -Monitor for any s/s of infection- notify SUPERVISOR NET MAKING/MD of any pertinent findings -D/C previous wound [...] which included preparing to see the patient, anlc-bl-oroh patient care, completing clinical documentation, reviewing separately [...] today's visit on 01/31/2024. SIGNATURE: Sharan Dominguez APRN.[facility]ALE[facility] POLLOCK PATIENT NAME: Chikis Tobar DATE: 01/31/2024 OFFICE #: [phone] PAGER/CELL: [phone] documented in this encounterMercy Health – The Jewish Hospital10-15-2024 History of Present illness Narrative* Dilcia Carl APRN.[facility] - 01/29/2024 11:56 AM EDT Images from the original note were not included. Connected Care Unit Progress Note Patient Name: Chikis Tobar Patient Facility: [facility] Admit Date 11/09/23 Level of [...] appropriately. Labs reviewed, BUN 21, Cr 0.5, TRV038. Non-pitting BLE edema present, marcie hose non-effective, [...] Dept Phone 01/31/2024 9:30 AM SHARAN DOMINGUEZ [facility] [phone] 02/06/2024 11:00 AM RUDDY GUPTA [phone] 02/11/2024 3:30 PM NOEL DANIELS [facility] [phone] 03/21/2024 11:00 AM REGGIE BUTLER Bldg [phone] HPI: (Per discharge summary) 58-year-old female with [...] L1-S2 spinal levels and underwent Certas RF PSYCH NURSE shunt with meningeal biopsy showing fungal hyphae elements. She was followed by ID at [facility] and was on posaconazole. She is s/p shunt externalization at [facility] (06/27/23) during abdominal surgery for SBO and eventual VPS explantation (07/10/23). She was o riginally scheduled for shunt reinternalization with Dr. Oconnor on 11/20/23. She fell due to leg spasms and presented to OSH ED and admitted on 10/07/23. Found to have L tibial fx s/p intramedullary nailDr. Darleen at [facility] (10/08/23). She was then transferred to [facility] for shuntreimplantation. She is s/p VPS reimplantation [...] appropriately. Labs reviewed, BUN 21, Cr 0.5, [id number]. Non-pitting BLE edema present, marcie hose non-effective, [...] nursing staff. Electronically signed by Dilcia Carl APRN.SUPERVISOR NET MAKING documented in this encounterMercy Health – The Jewish Hospital10-10-2024 History of Present illness Narrative* Sharan Dominguez APRN.SUPERVISOR NET MAKING - 01/24/2024 5:25 PM EDT Images from the original note were not included. [facility] PROVIDER PROGRAM - FOLLOW UP VISIT PATIENT NAME: Chikis Tobar SERVICE DATE: 01/24/[address] PL[address] OF SERVICE FOR THIS VISIT: Shelter Facility (POS [address]), Facility Name: [facility] Level of Care: Skilled Asked to see [...] Mn Q Bldg 04/10/2024 2:00 PM Marlene oCrdero PA-C NREUS2 Mn S Bldg 09/16/2024 10:45 [...] -Monitor for any s/s of infection- notify SUPERVISOR NET MAKING/MD of any pertinent findings -Wound care orders [...] which included preparing to see the patient, [id number]-[id number] patient care, completing clinical documentation, reviewing separately [...] NAME: Chikis Tobar DATE: 01/24/2024 OFFICE #: [phone] PAGER/CELL: [phone] documented in this encounterCleveland [id number] History of Present illness Narrative* Dilcia Carl APRN.SUPERVISOR NET MAKING - 01/24/2024 4:55 PM EDT Images from [...] appropriately. Labs reviewed, BUN 21, Cr 0.5, [id number]. Non-pitting BLE edema present, marcie hose non-effective, [...] No acute issues. - lasix 20mg po M// for edema - prednisone taper, 60, 50, 40, 30, 20, 10, 5 then done - continue ASA 81mg po BID for DVT prophylaxis - continue pain control and muscle relaxer - continue posaconazole - continue to monitor CBC/CMP - continue to monitor Dilcia Carl Appointments for Next 60 Days Date Time Provider Location Dept Phone 01/24/2024 1:30 PM SHARAN DOMINGUEZ [facility] [phone] 02/06/2024 11:00 AM RUDDY GUPTA [facility] [phone] 03/21/2024 11:00 AM REGGIE BUTLER [facility] [phone] HPI: (Per discharge summary) 58-year-old female with [...] L1-S2 spinal levels and underwent Certas RF PSYCH NURSE shunt with meningeal biopsy showing fungal hyphae elements. She was followed by ID at [facility] and was on posaconazole. She is s/p shunt externalization at [facility] (06/27/23) during abdominal surgery for SBO and eventual VPS explantation (07/10/23). She was o riginally scheduled for shunt reinternalization with Dr. Oconnor on 11/20/23. She fell due to leg spasms and presented to OSH ED and admitted on 10/07/23. Found to have L tibial fx s/p intramedullary nailDr. Darleen at [facility] (10/08/23). She was then transferred to [facility] [place]. She is s/p VPS reimplantation [...] appropriately. Labs reviewed, BUN 21, Cr 0.5, [id number]. Non-pitting BLE edema present, marcie hose non-effective, [...] by Dilcia Carl APRN.CNP documented in this encounterMercy [facility]10-08-2024 History of Present illness Narrative* Dilcia Carl APRN.MARIS - 01/22/2024 10:40 AM EDT Images from the original note were not included. Connected Care Unit Discharge Summary SNF Connected Care Program [facility] [address] [place] [address], [address] ([address]) [place] [address] CONNECTED CARE DISCHARGE SUMMARY Service Date: 01/22/2024 Admission Date: 11/09/23 Discharge Date: 01/23/24 Facility: [facility] Level of Care: Skilled SNF Attending: [...] Discharge Condition: Improved Discharge Disposition: Home with C, PT/OT and nursing needs Discharge Medications: cyanocobalamin [...] mouthonce daily. Functional Status: Modified independent + [facility] Scheduled Future Appointments: Future Appointments Date Time [...] with more than 50% of the total [id number]-xi-jwdm time of thevisit in counseling / coordination of care. Dilcia Carl APRN.MARIS documented in this encounterMercy Health – The Jewish Hospital10-03-2024 History of Present illness Narrative* Dilcia Carl APRN.CNP - 01/17/2024 12:20 PM EDT Images from the original note were not included. Connected Care Unit Progress Note Patient Name: Chikis Tobar Patient Facility: [facility] Admit Date 11/09/23 Level of Care: Skilled SNF Attending: Amelia Parisi D.O. Service Date: 01/17/2024 Code Status: FC Chief Complaint: Evaluation regarding hydrocephalus, meningitis ASSESSMENT [...] appropriately. Labs reviewed, BUN 21, Cr 0.5, [id number]. Non-pitting BLE edema present, marcie hose non-effective, [...] Dept Phone 01/17/2024 11:30 AM SHARAN DOMINGUEZ [facility] [phone] 02/06/2024 11:00 AM RUDDY GUPTA [phone] HPI: (Per discharge summary) 58-year-old female with [...] L1-S2 spinal levels and underwent Certas RF PSYCH NURSE shunt with meningeal biopsy showing fungal hyphae elements. She was followed by ID at [facility] and was on posaconazole. She is s/p shunt externalization at [facility] (06/27/23) during abdominal surgery for SBO and eventual VPS explantation (07/10/23). She was o riginally scheduled for shunt reinternalization with Dr. Oconnor on 11/20/23. She fell due to leg spasms and presented to OSH ED and admitted on 10/07/23. Found to have L tibial fx s/p intramedullary nailDr. Darleen at [facility] (10/08/23). She was then transferred to [facility] for shuntreimplantation. She is s/p VPS reimplantation [...] appropriately. Labs reviewed, BUN 21, Cr 0.5, [id number]. Non-pitting BLE edema present, marcie hose non-effective, [...] by Dilcia Carl APRN.MARIS documented in this encounterMercy Health – [facility]10-01-2024 History of Present illness Narrative* Dilcia Carl APRN.MARIS - 01/15/2024 3:56 PM EDT Images from the original note were not included. Connected Care Unit Progress Note Patient Name: Chikis Tobar Patient Facility: [facility] Admit Date 11/09/23 Level of [...] appropriately. Labs reviewed, BUN 21, Cr 0.5, [id number]. Non-pitting BLE edema present, marcie hose non-effective, [...] Dept Phone 02/06/2024 11:00 AM RUDDY GUPTA [facility] [phone] HPI: (Per discharge summary) 58-year-old female with [...] L1-S2 spinal levels and underwent Certas RF PSYCH NURSE shunt with meningeal biopsy showing fungal hyphae elements. She was followed by ID at [facility] and was on posaconazole. She is s/p shunt externalization at [facility] (06/27/23) during abdominal surgery for SBO and eventual VPS explantation (07/10/23). She was o riginally scheduled for shunt reinternalization with Dr. Oconnor on 11/20/23. She fell due to leg spasms and presented to OSH ED and admitted on 10/07/23. Found to have L tibial fx s/p intramedullary nailDrGiancarlo Morejon at [facility] (10/08/23). She was then transferred to [facility] for shuntreimplantation. She is s/p VPS reimplantation [...] changes to be addressed at this time. /: No change in condition. Pt. participating in [...] issues at this time. No acute issues. 9/3: BP soft without dizziness, currently taking metoprolol [...] appropriately. Labs reviewed, BUN 21, Cr 0.5, [id number]. Non-pitting BLE edema present, marcie hose non-effective, [...] stable. No acute issues at this time. 10/1: Hemodynamically stable, eating and drinking appropriately. participating [...] nursing staff. 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 Patient experienced impaired mobility and functions after removal of shunt and noted minimal improvement in lower extremity function post shunt reimplantation. She was evaluated in PM&R spasticity clinic initially on 12/04/2023 for paraplegia and associated severe spasticity and flexor spasms. Sheis currently at residential facility. She reports to clinic today for [...] 01/11/2024 Clinician(s) performing the injections: Noel Daniels Keypuncher: Concepción Gutierrez LPN; Sheree Hernandez RN The patient was positioned Supine on exam table. Procedure: Phenol Neurolysis- Obturator Nerve Antiseptic preparation: betadine and alchohol Anesthesia (cutaneous): No Medication Injected: Phenol in water (6%) LOT#: [id number] EXP: 03/02/24 Site prepared with aseptic precaution. [...] myelitis and hydrocephalus st atus post initial PSYCH NURSE shunt placement June 2022 and reimplantation in [...] Noel Daniels MD Physical Medicine & Rehab [facility] documented in this encounterMercy Health – The Jewish Hospital09-27-2024 Instructions* Patient Instructions* Noel Daniels MD - 01/11/2024 4:11 PM EDT You have received Anterior Obturator Nerve Block with Phenol today for lower extremity spasticity. Monitor the skin around the site of injections for any changes like redness, swelling, pain for at least a couple of days. The skin should be examined by a health landcare officer if changes persist or infection is suspected. [...] change in position Medications - Continue Baclofen [id number] - Ok to give 10mg PRN dose of Baclofen at bedtime. - Ok to stop Robaxin as it is not helpful. - Unclear role of steroids in spasticity management. Ok to d/c steroids unless started for different indication. Please contact our office via iRule or by phone at [phone] with any questions or concerns. If your health insurance changes before the next injections, please contact our office at [phone] as soon as possible so we can submit a new pre- authorization if needed. Please note that we may not be able to perform the injections if your insurance changes and the treatment is not pre-authorized. documented in this encounterMercy Health [facility]09-27-2024 Instructions* Patient Instructions* Noel Daniels MD - 01/11/2024 3:27 PM EDT You have received botulinum toxin A (Botox) injections today for lower extremity spasticity. Monitor the skin around the site of injections for any changes like redness, swelling, pain for at least acouple of days. The skin should be examined by a health landcare officer if changes persist or infection is suspected. [...] change in position Medications - Continue Baclofen [id number] - Ok to give 10mg PRN dose of Baclofen at bedtime. - Ok to stop Robaxin as it is not helpful. - Unclear role of steroids in spasticity management. Ok to d/c steroids unless started for different indication. Please contact our office via iRule or by phone at [phone] with any questions or concerns. If your health insurance changes before the next injections, please contact our office at [phone] as soon as possible so we can submit a new pre- authorization if needed. Please note that we may not be able to perform the injections if your insurance changes and the treatment is not pre-authorized. 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 Patient experienced impaired mobility and functions after removal of shunt and noted minimal improvement in lower extremity function post shunt reimplantation. She was evaluated in PM&R spasticity clinic initially on 12/04/2023 for paraplegia and associated severe spasticity and flexor spasms. Sheis currently at residential facility. She reports to clinic today for [...] 01/11/2024 Clinician(s) performing the injections: Noel Daniels Keypuncher: Concepción Gutierrez LPN; Sheree Hernandez RN The [...] myelitis and hydrocephalus st atus post initial PSYCH NURSE shunt placement June 2022 and reimplantation in [...] pressure relief when changing position Continue Baclofen [id number]. Ok to give 10mg PRN dose of Baclofen at bedtime. Ok to stop Robaxin as it is not helpful with spasms. Unclear role of steroids in spasticity management. Ok to d/c steroids unless started for different indication. Follow up with PM&R/Neurorehab STEVE in 4 weeks for post-injection assessment. Time spent with patient: 45 mins Noel Daniels MD Physical Medicine & Rehab [facility] documented in this encounterMercy Health – The Jewish Hospital09-26-2024 History of Present illness Narrative* Jamie Mccarty [...] was performed and she was transferred to [facility]. She was found to have DKA. A CT head showed hydrocephalus with MRI on May 29 showing multiple enhancement in the anterior sabra, medulla, and in the spine at the level of C7-T3 and L1-S2. Multiple taps were performed and were unsuccessful. A PSYCH NURSE shunt was placed and patient underwent a [...] lobes (8 mm). LFTs 08/16 normal . PSYCH NURSE shunt was adjusted from 4 to 7 Posaconazole level 2.4 on 08/21/22 Developed a facial rash in September 2022, mainly the malar area, a few spots on the forehead. 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 She was seeing wound care at [facility] for her sacral area ulcer. Rx'd [...] and ambulatory, using a cane PRN. No PSYCH NURSE shunt issues. Balance has improved but still [...] MRI of the T spine. Admitted to [facility] 06/24-07/13/2023 Presented to [facility] 06/24 with c/f possible SBO. Patient was [...] spasms in both legs started after the PSYCH NURSE shunt was removed at [facility], so it seemed somehow related. The posaconazole [...] help decide length of therapy of posaconazole. PSYCH NURSE shunt replacement was being planned for November2023. She suffered a fall after an episode of leg spasms. Admitted to local hospital and dx'd with comminuted fracture of Left distal tibial bone. From there, she was transferred to [facility] She went to [place] 10/08/23 intramedullary nail placement to the Left tibia. CT head 10/08 with evidence of interval increased dilation of the ventricular systems suggestive communicating hydrocephalus with mildtransependymal edema Transferred to [facility]. Seen by ID Dr Dominic Pablo for [...] continue same and FU with ID at [facility] Patient contacted me on MyChart on 10/31/23 [...] her feet was the day after the PSYCH NURSE shunt was reimplanted (10/16/23). The next day, therapy came and spasms started again. Some have theorized that the spasms were controlled by the anesthesia in the OR the day before. Then she went to [facility], and was able to take a few steps with the parallel bars but nothing like at [facility] on POD [address]. Plan was to try a ketty system to pull her along when walking, but never did it. No SHANNON. Shunt 6--> 7. CTH done at rehab after the MRI on 10/18/23; told there was too much fluid being drained and adjusted to 7 (which was the setting of the previous shunt before it was removed at [facility]) Still had decreased sensation in both legs. [...] in pain ID clinic 12/21/23-- was at [facility]. Saw Neurology same day, Dr Butler. She [...] with Botox CURRENTLY: (01/10/24) - remains at [facility] - on prednisone taper; continues on baclofen - pain has improved some and participating more in PT/OT, per patient and per Gerontology notes at [facility]. Legs getting a little stronger. Using parallel [...] slit likeventricles have relaxed and hygroma resolved, PSYCH NURSE shunt catheter in place and no acute [...] kg/m SKIN: no rosacea H: right occipital PSYCH NURSE shunt palpable along its track and nontender. [...] midline, mobile Motor: UE BICEPS TRICEPS DELTS Artist Mannequin Coloring R 5/5 5/5 4/5 5/5 L 5/5 5/5 5/5 5/5 LE Hip Flex Knee Flex Knee Extend Plantarflex Dorsiflex EHL R 1/5 3+/5 3+/5 2/5 3/5 not done L 2/5 3/5 1/ 3/5 3/5 2/5 Knee flexion about 45 [...] Lymph 1.00 - 4.00 k/uL 1.26 1.89 Glasscock% % 9.9 6.7 Abs Glasscock <0.87 k/uL 0.48 0.51 Eosin% % 4.7 [...] mg/dL 3.8 CRP <0.9 mg/dL <0.[address] <[address] [facility] Reference Range & Units 06/28/22 14:58 03/19/23 12:42 10/15/23 10:59 CSF Tube Nbr Sterile [...] - 90 % 98 (H) 80 71 Glasscock%, CSF 10 - 50 % 2 (L) [...] culture negative 07/02 CSF culture 07/02 NG Pruden fungal PCR PCR from biopsy tissue both negative ([facility]) 06/28 CSF (labelled lumbar puncture but is from EVD): MNGS negative 06/27 CSF (labelled lumbar puncture but is from EVD): No growth, Crypto antigen negative 06/26 OR cultures Dural/subdural itradural thoracic lesion Tissue: gram stain negative. NGTD Wound culture: gram stain negative. NGTD AFB smear no organsims. Fungal: smear: no fungus seen Pruden bacterial, fungal and AFB PCRs: negative (entire [...] DKA - 05/29/22 MRI brain from [facility] with leptomeningeal enhancement, communicating hydrocephalus - 06/07/22 MRI spine with diffuse LMD throughout spinal cord and cauda equina with loculated CSF in anterior thecal sac at C7-T3 with posterior displacement of cord and cord compression. T4-9 intramedullary hyperintensity suggesting cord edema due to compression superiorly - Course complicated by unsuccessful LP attempts at [facility] then transferred to [facility] - s/p cisternal tap 06/16/22 with limited [...] with fungal hyphae confirmed on multiple sections. Pruden PCR and cultures all negative, including the tissue block in its entirety sent for universal fungal PCR and negative - CSF 06/28/22 negative on Next Gen sequencing - posaconazole started 06/29/22 - s/p PSYCH NURSE shunt on 07/10.and improving MS since then. - small subdural hygromas over frontal convexities on CT 08/16/22, shunt settings adjusted - facial rash in September 2022, mainly the malar area, a few spots on the forehead. Dx'd with rosacea by PCP and started on metronidazole gel, improved - sacral area ulcer, saw wound care at [facility]. Rx'd with medical honey gel and [...] an episode of leg spasms. Admitted to [facility] and dx'd with comminuted fracture of Left distal tibial bone. From there, she was transferred to [facility] She underwent intramedullary nail placement to the Left tibia on 10/08/2023. 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 Seen by ID Dr Dominic Pablo for [...] continue same and FU with ID at [facility]. Ongoing leg spasms, gabapentin and Robaxin not [...] in 07/2023 a few days after the PSYCH NURSE shunt was removed in 06/2023 remains unclear-- [...] the patient, review of multiple MRI scans, [id number] patient care, completing clinical documentation, obtaining and/or reviewing separately obtained history, performing a medically appropriate examination, counseling and educating the patient/family/caregiver, ordering medications, tests, or procedures, independently interpreting results (not separately reported), communicating results to the patient/family/caregiver, and care coordination (not separately reported) documented in this encounterMercy Health – The Jewish Hospital09-26-2024 History of Present illness Narrative* Dilcia Carl APRN.SUPERVISOR NET MAKING - 01/10/2024 2:43 PM EDT Images from [...] appropriately. Labs reviewed, BUN 21, Cr 0.5, [id number]. Non-pitting BLE edema present, marcie hose non-effective, [...] Provider Location Dept Phone 01/10/2024 10:20 AM [facility] 01/10/2024 11:00 AM AASHISH MONGE [facility] [phone] 01/10/2024 12:00 PM SHARAN DOMINGUEZ [facility] [phone] 01/10/2024 2:[address] 2 MAIN QB (I-STAT) Mn Q [facility] [phone] 01/10/2024 3:00 PM MARLENE CORDERO Mn S Bl [phone] 01/10/2024 3:30 PM JAMIE MCCARTY Mn G [facility] [phone] 01/11/2024 2:30 PM NOEL DANIELS [place] [facility] [phone] 01/11/2024 3:15 PM NOEL DANIELS [place] [facility] [phone] 02/06/2024 11:00 AM RUDDY GUPTA [phone] HPI: (Per discharge summary) 58-year-old female with [...] L1-S2 spinal levels and underwent Certas RF PSYCH NURSE shunt with meningeal biopsy showing fungal hyphae elements. She was followed by ID at [facility] and was on posaconazole. She is s/p shunt externalization at [facility] (06/27/23) during abdominal surgery for SBO and eventual VPS explantation (07/10/23). She was o riginally scheduled for shunt reinternalization with Dr. Oconnor on 11/20/23. She fell due to leg spasms and presented to OSH ED and admitted on 10/07/23. Found to have L tibial fx s/p intramedullary nailDr. Darleen at [facility] (10/08/23). She was then transferred to [facility] for shuntreimplantation. She is s/p VPS reimplantation [...] appropriately. Labs reviewed, BUN 21, Cr 0.5, [id number]. Non-pitting BLE edema present, marcie hose non-effective, [...] and nursing staff. Electronically signed by Dilcia aCrl APRN.SUPERVISOR NET MAKING documented in this encounterMercy Health – The Jewish Hospital09-26-2024 History of Present illness Narrative* Marlene Cordero PA-C - 01/10/2024 2:30 PM EDT CC: PSYCH NURSE shunt f/u HPI: Mrs Chikis Tobar comes to clinic today for surgical f/u. She had a PSYCH NURSE shunt reimplanted on 10/11/23. Chikis's shunt was previously removed at [facility] on 07/10/23 following surgery for bowel obstruction [...] like ventricles have relaxed and hygroma resolved, PSYCH NURSE shunt catheter in place and no acute abnormalities. Discussed in detail possible benefits and risks of PSYCH NURSE shunt adjustment. After discussion with Chikis, she [...] settin Marlene Cordero PA-C documented in this encounterMercy Health – The Jewish Hospital09-26-2024 History of Present illness Narrative* Michelle Wood RT(R) - 01/10/2024 2:00 PM EDT Radiology Service [...] PATIENT PRESENTS WITH AN IMPLANTABLE OR ATTACHED SUPERINTENDENT CEMETERY: Yes Dexcom RADIOLOGY DEPARTMENT: CT; Exam(s) Completed: Brain PERIPHERAL IV DATA: Not applicable SIGNED BY: RT Sejal(R) January 10, 2024 1:02 PM documented in this encounterMercy Health – The Jewish Hospital09-26-2024 History of Present illness Narrative* Aashish Monge [...] x-rays Aashish Monge PA-C documented in this encounterMercy Health – The Jewish Hospital09-26-2024 History of Present illness Narrative* Sharan Dominguez APRN.MARIS - 01/10/2024 10:59 AM EDT Images from the original note were not included. [facility] PROVIDER PROGRAM - FOLLOW UP VISIT PATIENT NAME: Chikis Tobar SERVICE DATE: 01/10/[address]24 PL[address] OF SERVICE FOR THIS VISIT: Shelter Facility (POS [address]), Facility Name: [facility] Level of Care: Skilled Asked to see [...] Department Center 01/10/2024 12:00 PM Sharan Dominguez APRN.MARIS [facility] Independ 01/10/2024 2:[address] 2 MAIN QB (I-STAT) RCTMN Mn Q Bldg 01/10/2024 3:00 PM Marlene Cordero PA-C NREUS2 Mn S Bldg 01/10/2024 3:30 PM Jamie Mccarty MD INFDMN Mn G dg 01/11/2024 2:30 PM Noel Daniels MD [facility] F 01/11/2024 3:15 PM Noel Daniels MD [facility] F 02/06/2024 11:00 AM Ruddy Gupta MD [...] -Monitor for any s/s of infection- notify SUPERVISOR NET MAKING/MD of any pertinent findings -Wound care orders [...] which included preparing to see the patient, qyyr-ry-ujpr patient care, completing clinical documentation, reviewing separately [...] today's visit on 01/10/2024. SIGNATURE: Sharan Dominguez APRN.GONZALEZ POLLOCK PATIENT NAME: Chikis Tobar DATE: 01/10/2024 OFFICE #: [phone] PAGER/CELL: [phone] documented in this encounterMercy Health – The Jewish Hospital09-26-2024 History of Present illness Narrative* Reed Suh [...] etc.)? Inpatient: Screened onfloor PATIENT GENDER DATA: Male PATIENT RELEVANT IMPLANT DATA REVIEWED: Not Applicable PATIENT PRESENTS WITH AN IMPLANTABLE OR ATTACHED SUPERINTENDENT CEMETERY: No RADIOLOGY DEPARTMENT: General X-ray: Exam(s) Completed: Lower Extremity X- Ray(s): Tibia Fibula, Left PERIPHERAL IV DATA: Not applicable SIGNED BY: RT Ирина(Randy) January 10, 2024 10:26 AM documented in this encounterMercy Health – The Jewish Hospital09-24-2024 History of Present illness Narrative* Dilcia Carl APRN.CNP - 01/08/2024 2:33 PM EDT Images from the original note were not included. Connected Care Unit Progress Note Patient Name: Chikis Tobar Patient Facility: [facility] Facility Admit Date 11/09/23 Level of Care: [...] appropriately. Labs reviewed, BUN 21, Cr 0.5, PFW991. Non-pitting BLE edema present, marcie hose non-effective, [...] 10:00 AM JAMIE MCCARTY Mn G [facility] [phone] 01/10/2024 10:20 AM [facility] H[facility] 01/10/2024 11:00 AM AASHISH MONGE Hosp [phone] 01/10/2024 12:00 PM SHARAN DOMINGUEZ [facility] [phone] 01/10/2024 2:[address] 2 MAIN QB (I-STAT) Mn Q [facility] [phone] 01/10/2024 3:00 PM MARLENE CORDERO Mn S [facility] [phone] 01/11/2024 2:30 PM NOEL DANIELS [place] [facility] [phone] 01/11/2024 3:15 PM NOEL DANIELS [place] [facility] [phone] 02/06/2024 11:00 AM RUDDY GUPTA [phone] HPI: (Per discharge summary) 58-year-old female with [...] L1-S2 spinal levels and underwent Certas RF PSYCH NURSE shunt with meningeal biopsy showing fungal hyphae elements. She was followed by ID at [facility] and was on posaconazole. She is s/p shunt externalization at [facility] (06/27/23) during abdominal surgery for SBO and eventual VPS explantation (07/10/23). She was o riginally scheduled for shunt reinternalization with Dr. Oconnor on 11/20/23. She fell due to leg spasms and presented to OSH ED and admitted on 10/07/23. Found to have L tibial fx s/p intramedullary nailDr. Darleen at [facility] (10/08/23). She was then transferred to [facility] for shuntreimplantation. She is s/p VPS reimplantation [...] appropriately. Labs reviewed, BUN 21, Cr 0.5, UPL937. Non-pitting BLE edema present, marcie hose non-effective, [...] uncontrolled pain exacerbations. Medications: Medications listed in [facility] during SNF admission may not be current. [...] nursing staff. Electronically signed by Dilcia Carl APRN.SUPERVISOR NET MAKING documented in this encounterMercy Health – The Jewish Hospital09-24-2024 Telephone encounter Note * Telephone Encounter - Son Zhao Asst, Dwayne - 01/08/2024 2:[address] Mccarty, Please see the below iRule message and contact patient to advise within 72 hours. Dwayne Bernstein I decided I will just keep my appointment scheduled for tomorrow morning since I haven t heard backfrom your office. Thanks for trying to change it. I will see Dr Mccarty tomorrow morning Thanks Chikis Tobar [facility]09-24-2024 Miscellaneous Notes* Telephone Encounter - Son Bernstein, Dwayne - 01/08/2024 2:[address] Mccarty, Please see the below iRule message and contact patient to advise within 72 hours. Dwayne Bernstein I decided I will just keep my appointment scheduled for tomorrow morning since I haven t heard backfrom your office. Thanks for trying to change it. I will see Dr Mccarty tomorrow morning Thanks Chikis Tobar * Telephone Encounter - Son Bottom Ironer, Dwayne - 01/03/2024 8:[address] Mccarty, Please see the below iRule message and contact patient to advise within 72 hours. Dwayne Mccarty- I am messaging you to see if it would be possible to get my appointment next week with you sometimearound my neuro appointment on instead of on Sunday. If it isn t possible that is fine I was just trying to limit my trips into [place] to one instead of two days in a row. Just let me know what you think about this possibility. Thanks for your time with this. See you next week. Chikis Tobar * Telephone Encounter - Dwayne Wray - 12/14/2023 7:[address] Mccarty, Please see the below iRule message and contact patient to advise within 72 hours. Dwayne Bernstein This has been a crazy week Dr Mccarty. I will check with my nurse and see if I can have them add the appointment with you at 10:30am. I will let your office know documented in this encounterMercy Health – The Jewish Hospital09-19-2024 History of Present illness Narrative* Dilcia Carl APRN.CNP - 01/03/2024 2:23 PM EDT Images from the original note were not included. Connected Care Unit Progress Note Patient Name: Chikis Tobar Patient Facility: [facility] Facility Admit Date 11/09/23 Level of [...] Dept Phone 01/09/2024 10:00 AM JAMIE MCCARTY G [facility] [phone] 01/10/2024 10:20 AM [facility] Fv Hosp 01/10/2024 11:00 AM AASHISH MONGE Fv Hosp [phone] 01/10/2024 2:[address] 2 MAIN QB (I-STAT) [place] Q [facility] [phone] 01/10/2024 3:00 PM MARLENE CORDERO S [facility] [phone] 01/11/2024 2:30 PM NOEL DANIELS F [phone] 01/11/2024 3:15 PM NOEL DANIELS F [phone] 02/06/2024 11:00 AM RUDDY GUPTA [phone] HPI: (Per discharge summary) 58-year-old female with [...] L1-S2 spinal levels and underwent Certas RF PSYCH NURSE shunt with meningeal biopsy showing fungal hyphae elements. She was followed by ID at [facility] and was on posaconazole. She is s/p shunt externalization at [facility] (06/27/23) during abdominal surgery for SBO and eventual VPS explantation (07/10/23). She was o riginally scheduled for shunt reinternalization with Dr. Oconnor on 11/20/23. She fell due to leg spasms and presented to OSH ED and admitted on 10/07/23. Found to have L tibial fx s/p intramedullary nailDrGiancarlo Morejon at [facility] (10/08/23). She was then transferred to [facility] [place] for shuntreimplantation. She is s/p VPS reimplantation [...] by Dilcia Carl APRN.CNP documented in this encounterMercy Health – The Jewish Hospital09-19-2024 Telephone encounter Note * Telephone Encounter - Dwayne Wray - 01/03/2024 8:[address] Mccarty, Please see the below iRule message and contact patient to advise within 72 hours. Dwayne Cline Bottom Ironerraul Mcacrty- I am messaging you to see if it would be possible to get my appointment next week with you sometimearound my neuro appointment on instead of on Sunday. If it isn t possible that is fine I was just trying to limit my trips into [place] to one instead of two days in a row. Just let me know what you think about this possibility. Thanks for your time with this. See you next week. Chikis Tobar [facility]09-12-2024 History of Present illness Narrative* Dilcia Carl APRN.CNP - 12/27/2023 3:38 PM EDT Images from the original note were not included. Connected Care Unit Progress Note Patient Name: Chikis Tobar Patient Facility: [facility] Admit Date 11/09/23 Level of [...] Location Dept Phone 12/27/2023 1:30 PM SHARAN DOMINGUEZ [facility] [phone] 01/09/2024 10:00 AM JAMIE MCCARTY G [facility] [phone] 01/10/2024 10:20 AM [facility] 01/10/2024 11:00 AM AASHISH MONGE Fv Hosp [phone] 01/10/2024 2:[address] 2 MAIN QB (I-STAT) [place] Q [facility] [phone] 01/10/2024 3:00 PM MARLENE CORDERO S [facility] [phone] 01/11/2024 2:30 PM NOEL DANIELS F [phone] 01/11/2024 3:15 PM NOEL DANIELS [phone] 02/06/2024 11:00 AM RUDDY GUPTA [phone] HPI: (Per discharge summary) 58-year-old female with [...] L1-S2 spinal levels and underwent Certas RF PSYCH NURSE shunt with meningeal biopsy showing fungal hyphae elements. She was followed by ID at [facility] and was on posaconazole. She is s/p shunt externalization at [facility] (06/27/23) during abdominal surgery for SBO and eventual VPS explantation (07/10/23). She was o riginally scheduled for shunt reinternalization with Dr. Oconnor on 11/20/23. She fell due to leg spasms and presented to OSH ED and admitted on 10/07/23. Found to have L tibial fx s/p intramedullary nailDr. Randallri at [facility] (10/08/23). She was then transferred to [facility] [place] for shuntreimplantation. She is s/p VPS reimplantation [...] nursing staff. Electronically signed by Dilcia Carl APRN.SUPERVISOR NET MAKING documented in this encounterMercy Health – The Jewish Hospital09-12-2024 History of Present illness Narrative* Sharan Dominguez APRN.MARIS - 12/27/2023 2:29 PM EDT Images from the original note were not included. MOBILE C PROVIDER PROGRAM - FOLLOW UP VISIT PATIENT NAME: Chikis Tobar SERVICE DATE: 12/27/[address] PL[address] OF SERVICE FOR THIS VISIT: Shelter Facility (POS 31), Facility Name: [facility] Level of Care: Skilled Asked to see [...] Bldg 01/11/2024 2:30 PM Noel Daniels MD [facility] 01/11/2024 3:15 PM Noel Daniels MD [facility] 02/06/2024 11:00 AM Ruddy Gupta MD [...] -Monitor for any s/s of infection- notify SUPERVISOR NET MAKING/MD of any pertinent findings -Wound care orders [...] which included preparing to see the patient, eihi-re-mepd patient care, completing clinical documentation, reviewing separately [...] today's visit on 12/27/2023. SIGNATURE: Sharan Dominguez APRN.GONZALEZ POLLOCK PATIENT NAME: Chikis Tobar DATE: 12/27/2023 OFFICE #: [phone] PAGER/CELL: [phone] documented in this encounterMercy Health – The Jewish Hospital09-10-2024 History of Present illness Narrative* Dilcia Carl APRN.CNP - 12/25/2023 1:07 PM EDT Images from the original note were not included. Connected Care Unit Progress Note Patient Name: Chikis Tobar Patient Facility: [facility] Admit Date 11/09/23 Level of [...] Dept Phone 01/09/2024 10:00 AM JAMIE MCCARTY G [facility] [phone] 01/10/2024 10:20 AM [facility] 01/10/2024 11:00 AM AASHISH MONGE Fv Hosp [phone] 01/10/2024 2:[address] 2 MAIN QB (I-STAT) Mn Q [facility] [phone] 01/10/2024 3:00 PM MARLENE CODRERO S [facility] [phone] 01/11/2024 2:30 PM NOEL DANIELS F [phone] 01/11/2024 3:15 PM NOEL DANIELS F [phone] 02/06/2024 11:00 AM RUDDY GUPTA [phone] HPI: (Per discharge summary) 58-year-old female with [...] L1-S2 spinal levels and underwent Certas RF PSYCH NURSE shunt with meningeal biopsy showing fungal hyphae elements. She was followed by ID at [facility] and was on posaconazole. She is s/p shunt externalization at [facility] (06/27/23) during abdominal surgery for SBO and eventual VPS explantation (07/10/23). She was o riginally scheduled for shunt reinternalization with Dr. Oconnor on 11/20/23. She fell due to leg spasms and presented to OSH ED and admitted on 10/07/23. Found to have L tibial fx s/p intramedullary nailDr. Darleen at [facility] (10/08/23). She was then transferred to [facility] for shuntreimplantation. She is s/p VPS reimplantation [...] nursing staff. Electronically signed by Dilcia Carl APRN.SUPERVISOR NET MAKING documented in this encounterMercy Health – The Jewish Hospital09-06-2024 History of Present illness Narrative* Jamie Mccarty [...] was performed and she was transferred to [facility]. She was found to have DKA. A CT head showed hydrocephalus with MRI on May 29 showing multiple enhancement in the anterior sabra, medulla, and in the spine at the level of C7-T3 and L1-S2. Multiple taps were performed and were unsuccessful. A PSYCH NURSE shunt was placed and patient underwent a [...] lobes (8 mm). LFTs 08/16 normal . PSYCH NURSE shunt was adjusted from 4 to 7 Posaconazole level 2.4 on 08/21/22 Developed a facial rash in September 2022, mainly the malar area, a few spots on the forehead. 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 She was seeing wound care at [facility] for her sacral area ulcer. Rx'd [...] and ambulatory, using a cane PRN. No PSYCH NURSE shunt issues. Balance has improved but still [...] MRI of the T spine. Admitted to [facility] 06/24-07/13/2023 Presented to [facility] 06/24 with c/f possible SBO. Patient was [...] spasms in both legs started after the PSYCH NURSE shunt was removed at [facility], so it seemed somehow related. The posaconazole [...] help decide length of therapy of posaconazole. PSYCH NURSE shunt replacement was being planned for November2023. She suffered a fall after an episode of leg spasms. Admitted to local hospital and dx'd with comminuted fracture of Left distal tibial bone. From there, she was transferred to [facility] She went to [place] 10/08/23 intramedullary nail placement to the Left tibia. CT head 10/08 with evidence of interval increased dilation of the ventricular systems suggestive communicating hydrocephalus with mildtransependymal edema Transferred to [facility]. Seen by ID Dr Dominic Pablo for [...] continue same and FU with ID at [facility] Patient contacted me on MyChart on 10/31/23 [...] her feet was the day after the PSYCH NURSE shunt was reimplanted (10/16/23). The next day, therapy came and spasms started again. Some have theorized that the spasms were controlled by the anesthesia in the OR the day before. Then she went to [facility], and was able to take a few steps with the parallel bars but nothing like at [facility] on POD 1. Plan was to try a ketty system to pull her along when walking, but never did it. No SHANNON. Shunt 6--> 7. CTH done at rehab after the MRI on 10/18/23; told there was too much fluid being drained and adjusted to 7 (which was the setting of the previous shunt before it was removed at [facility]) Still had decreased sensation in both legs. [...] improvement in pain Currently (12/21/23) - at [facility] - Neurology consult earlier today, Dr Butler. [...] 100% SKIN: no rosacea H: right occipital PSYCH NURSE shunt palpable along its track and nontender. [...] midline, mobile Motor: UE BICEPS TRICEPS DELTS Artist Mannequin Coloring R 5/5 5/5 4/5 5/5 L 5/5 5/5 5/5 5/5 LE Hip Flex Knee Flex Knee Extend Plantarflex Dorsiflex EHL R 1/5 3/5 2/5 2/5 3/5 3/5 L 2/5 3/5 /5 3/5 3/5 2/5 Knee flexion about 45 [...] fasciculations or tremors noted. LABORATORIES Latest Ref [facility] 11/05/2023 WBC 3.70 - 11.00 k/uL 4.86 [...] Abs Lymph 1.00 - 4.00 k/uL 1.26 Glasscock% % 9.9 Abs Glasscock <0.87 k/uL 0.48 Eosin% % 4.7 Abs [...] 4.8 mg/dL 3.8 CRP <0.9 mg/dL <0.[address] [facility] Reference Range & Units 06/28/22 14:58 [...] - 90 % 98 (H) 80 71 Glasscock%, CSF 10 - 50 % 2 (L) [...] culture negative 07/02 CSF culture 07/02 NG Pruden fungal PCR PCR from biopsy tissue both negative ([facility]) 06/28 CSF (labelled lumbar puncture but is from EVD): MNGS negative 06/27 CSF (labelled lumbar puncture but is from EVD): No growth, Crypto antigen negative 06/26 OR cultures Dural/subdural itradural thoracic lesion Tissue: gram stain negative. NGTD Wound culture: gram stain negative. NGTD AFB smear no organsims. Fungal: smear: no fungus seen Pruden bacterial, fungal and AFB PCRs: negative (entire [...] DKA - 05/29/22 MRI brain from [facility] with leptomeningeal enhancement, communicating hydrocephalus - 06/07/22 MRI spine with diffuse LMD throughout spinal cord and cauda equina with loculated CSF in anterior thecal sac at C7-T3 with posterior displacement of cord and cord compression. T4-9 intramedullary hyperintensity suggesting cord edema due to compression superiorly - Course complicated by unsuccessful LP attempts at [facility] then transferred to [facility] - s/p cisternal tap 06/16/22 with limited [...] with fungal hyphae confirmed on multiple sections. Pruden PCR and cultures all negative, including the tissue block in its entirety sent for universal fungal PCR and negative - CSF 06/28/22 negative on Next Gen sequencing - posaconazole started 06/29/22 - s/p PSYCH NURSE shunt on 07/10.and improving MS since then. - small subdural hygromas over frontal convexities on CT 08/16/22, shunt settings adjusted - facial rash in September 2022, mainly the malar area, a few spots on the forehead. Dx'd with rosacea by PCP and started on metronidazole gel, improved - sacral area ulcer, saw wound care at [facility]. Rx'd with medical honey gel and [...] From there, she was transferred to [facility] She underwent intramedullary nail placement to the Left tibia on 10/08/2023. 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 Seen by ID Dr Dominic Pablo for [...] continue same and FU with ID at [facility]. Ongoing leg spasms, gabapentin and Robaxin not [...] much worse in 07/2023 days after the PSYCH NURSE shunt was removed in 06/2023 remains unclear-- [...] the patient, review of multiple MRI scans, [id number] patient care, completing clinical documentation, obtaining and/or reviewing separately obtained history, performing a medically appropriate examination, counseling and educating the patient/family/caregiver, ordering medications, tests, or procedures, independently interpreting results (not separately reported), communicating results to the patient/family/caregiver, and care coordination (not separately reported) documented in this encounterMercy Health – The Jewish Hospital09-06-2024 Nurse Note* Chel Fu MA - 12/21/2023 11:16 AM EDT Pt can not stand [facility]09-06-20[facility] Nurse Note* Chel Fu MA - 12/21/2023 11:16 AM EDT Pt can not stand documented in this encounterMercy Health – The Jewish Hospital09-06-2024 Instructions* Patient Instructions* Reggie Butler MD - [...] injections Continue PT Follow up with Dr. Roasdo or myself in 3 months documented in this encounterMercy Health – The Jewish Hospital09-06-2024 History of Present illness Narrative* Reggie Butler MD - 12/21/2023 9:30 AM EDT [facility] - NEW PATIENT EVALUATION Referring Provider: Marlene Cordero [id number] [address] [facility] [id number] Primary Care Provider: Kalli Simons MD [address] [place] [phone] Dear Marlene Cordero: Thank you for referring [...] taps were performed and were unsuccessful. A PSYCH NURSE shunt was placed and the patient underwent a meningeal biopsy with pathology showing-a elements. CSF NexGen sequencing was negative. She was admitted to [facility] on June 25, 2023 for obstructed bowel. She had abdominal surgery and at the time the PSYCH NURSE shunt was externalized. Prior to going into [...] Row Office Visit from 11/29/2023 in Neurological [facility] Most recent reading at 11/27/2023 8:00 AM Office Visit from 11/27/2023 in Orthopaedics [place] Most recent reading at 11/27/2023 8:00 AM [...] BP Cuff Size: Regular Adult) Pulse 75 EuU557% None for this encounter General: Awake, alert, [...] meningitis in May 2022 c/b hydrocephalus s/p PSYCH NURSE shunt and subsequent removal in June 2023 after a bowel obstruction at [facility]. She developed progressive weakness and involuntary movements [...] Associate Staff [facility] documented in this encounterMercy Health – The Jewish Hospital09-05-2024 History of Present illness Narrative* Dilcia Carl APRN.SUPERVISOR NET MAKING - 12/20/2023 6:27 PM EDT Images from [...] Dept Phone 12/20/2023 1:00 PM SHARAN DOMINGUEZ [facility] [phone] 12/21/2023 9:00 AM SHWETAREGGIE YEN Mn S Bldg [phone] 01/09/2024 10:00 AM JAMIE MCCARTY Mn G Bldg [phone] 01/10/2024 10:20 AM [facility] 01/10/2024 11:00 AM MIRANDATRISTIN CHATMANELLE Hosp [phone] 01/10/2024 2:[address] 2 MAIN QB (I-STAT) Mn Q Bldg [phone] 01/10/2024 3:00 PM MARLENE CORDERO Mn S Bldg [phone] 01/11/2024 2:30 PM NOEL DANIELS [place] [facility] [phone] 01/11/2024 3:15 PM NOEL DANIELS [place] [facility] [phone] 02/06/2024 11:00 AM RUDDY GUPTA [facility] [phone] HPI: (Per discharge summary) 58-year-old female with [...] L1-S2 spinal levels and underwent Certas RF PSYCH NURSE shunt with meningeal biopsy showing fungal hyphae elements. She was followed by ID at [facility] and was on posaconazole. She is s/p shunt externalization at [facility] (06/27/23) during abdominal surgery for SBO and eventual VPS explantation (07/10/23). She was o riginally scheduled for shunt reinternalization with Dr. Oconnor on 11/20/23. She fell due to leg spasms and presented to OSH ED and admitted on 10/07/23. Found to have L tibial fx s/p intramedullary nailDrGiancarlo Morejon at [facility] (10/08/23). She was then transferred to [facility] for shuntreimplantation. She is s/p VPS reimplantation [...] uncontrolled pain exacerbations. Medications: Medications listed in [facility] during SNF admission may not be current. [...] by Dilcia Carl APRN.MARIS documented in this encounterMercy Health – The Jewish Hospital09-05-2024 History of Present illness Narrative* Sharan Dominguez APRN.MARIS - 12/20/2023 5:44 AM EDT Images from the original note were not included. MOBILE [facility] PROVIDER PROGRAM - FOLLOW UP VISIT PATIENT NAME: Chikis Tobar SERVICE DATE: 12/20/[address]23 PLACE OF SERVICE FOR THIS VISIT: Shelter Facility (POS 31), Facility Name: [facility] Level of Care: Skilled Asked to see [...] Department Center 12/20/2023 1:00 PM Sharan Dominguez APRN.MARIS [facility] ITC Independ [...] Bldg 01/11/2024 2:30 PM Noel Daniels MD [facility] F 01/11/2024 3:15 PM Noel Daniels MD [facility] F 02/06/2024 11:00 AM Ruddy Gupta MD [...] (L89.620) Pressure injury of left heel, unstageable ([facility]) (primary encounter diagnosis) Comment: Slight decrease in [...] -Monitor for any s/s of infection- notify SUPERVISOR NET MAKING/MD of any pertinent findings -Wound care orders [...] APPETITE: fair MEDICATION REVIEW Medications listed in [facility] during SNF admission may not be current. [...] which included preparing to see the patient, [id number] patient care, completing clinical documentation, reviewing separately [...] today's visit on 12/20/2023. SIGNATURE: Sharan Dominguez APRN.CNP, CWOCN PATIENT NAME: Chikis Tobar DATE: 12/20/2023 OFFICE #: [phone] PAGER/CELL: [phone] documented in this encounterMercy Health – The Jewish Hospital09-03-2024 History of Present illness Narrative* Dilcia Carl APRN.CNP - 12/18/2023 3:25 PM EDT Images from the original note were not included. Connected Care Unit Progress Note Patient Name: Chikis Tobar Patient Facility: [facility] Shelter Facility Admit Date 11/09/23 Level of Care: [...] Dept Phone 12/20/2023 1:00 PM SHARAN DOMINGUEZ [facility] [phone] 12/21/2023 9:00 AM REGGIE BUTLER Mn S [facility] [phone] 01/09/2024 10:00 AM JAMIE MCCARTY Mn G [facility] [phone] 01/10/2024 10:20 AM [facility] 01/10/2024 11:00 AM AASHISH MONGE [facility] [phone] 01/10/2024 2:[address] 2 MAIN QB (I-STAT) Mn Q [facility] [phone] 01/10/2024 3:00 PM MARLENE CORDERO Mn S [facility] [phone] 01/11/2024 2:30 PM NOEL DANIELS F [phone] 01/11/2024 3:15 PM NOEL DANIELS F [phone] 02/06/2024 11:00 AM RUDDY GUPTA [phone] HPI: (Per discharge summary) 58-year-old female with [...] L1-S2 spinal levels and underwent Certas RF PSYCH NURSE shunt with meningeal biopsy showing fungal hyphae elements. She was followed by ID at [facility] and was on posaconazole. She is s/p shunt externalization at [facility] (06/27/23) during abdominal surgery for SBO and eventual VPS explantation (07/10/23). She was o riginally scheduled for shunt reinternalization with Dr. Oconnor on 11/20/23. She fell due to leg spasms and presented to OSH ED and admitted on 10/07/23. Found to have L tibial fx s/p intramedullary nailDrGiancarlo Morejon at [facility] (10/08/23). She was then transferred to [facility] for shuntreimplantation. She is s/p VPS reimplantation [...] stable. No acute issues at this time. 8/22: Hemodynamically stable, eating and drinking appropriately. participating [...] by Dilcia Carl APRN.MARIS documented in this encounterMercy Health – The [facility]08-30-2024 Telephone encounter Note * Telephone Encounter - Dwayne Wray - 12/14/2023 7:[address] Mccarty, Please see the below MyChart message and contact patient to advise within 72 hours. Dwayne Bernstein This has been a crazy week Dr Mccarty. I will check with my nurse and see if I can have them add the appointment with you at 10:30am. I will let your office know [facility]08-29-2024 History of Present illness Narrative* Dilcia Carl APRN.CNP - 12/13/2023 1:49 PM EDT Images from the original note were not included. Connected Care Unit Progress Note Patient Name: Chikis Tobar Patient Facility: [facility] Facility Admit Date 11/09/23 Level of [...] Dept Phone 12/13/2023 12:30 PM SHARAN DOMINGUEZ [facility] [phone] 12/21/2023 9:00 AM REGGIE BUTLER Mn S [facility] [phone] 01/09/2024 10:00 AM JAMIE MCCARTY Mn G [facility] [phone] 01/10/2024 10:20 AM [facility]R [facility] 01/10/2024 11:00 AM AASHISH MONGE [facility] [phone] 01/10/2024 2:[address] 2 MAIN QB (I-STAT) [place] [facility] [phone] 01/10/2024 3:00 PM MARLENE CORDERO Mn S [facility] [phone] 01/11/2024 2:30 PM NOEL DANIELS F [phone] 01/11/2024 3:15 PM NOEL DANIELS F [phone] 02/06/2024 11:00 AM RUDDY GUPTA Rej [phone] HPI: (Per discharge summary) 58-year-old female with [...] L1-S2 spinal levels and underwent Certas RF PSYCH NURSE shunt with meningeal biopsy showing fungal hyphae elements. She was followed by ID at [facility] and was on posaconazole. She is s/p shunt externalization at [facility] (06/27/23) during abdominal surgery for SBO and eventual VPS explantation (07/10/23). She was o riginally scheduled for shunt reinternalization with Dr. Oconnor on 11/20/23. She fell due to leg spasms and presented to OSH ED and admitted on 10/07/23. Found to have L tibial fx s/p intramedullary nailDr. Darleen at [facility] (10/08/23). She was then transferred to [facility] [place]untreim[place]. She is s/p VPS reimplantation [...] by Dilcia Carl APRN.MARIS documented in this encounterMercy Health – The Jewish Hospital08-29-2024 History of Present illness Narrative* Sharan Dominguez APRN.CNP - 12/13/2023 8:44 AM EDT Images from the original note were not included. [facility] PROVIDER PROGRAM - FOLLOW UP VISIT PATIENT NAME: Chikis Tobar SERVICE DATE: 12/13/[address]23 PL[address] OF SERVICE FOR THIS VISIT: Shelter Facility (POS 31), Facility Name: [facility] Level of Care: Skilled Asked to see [...] Department Center 12/13/2023 12:30 PM Sharan Dominguez APRN.CNP [facility] 12/21/2023 9:00 AM Reggie Butler MD NREUS2 Mn S Bldg 01/09/2024 10:00 AM Jamie Mccarty MD INFDMN Mn G Bldg 01/10/2024 10:20 AM [facility]R [facility] 01/10/2024 11:00 AM Aashish Monge PA-C ORFWHP [facility] 01/10/2024 2:[address] 2 MAIN QB (I-STAT) RCTMN Mn Q Bldg 01/10/2024 3:00 PM Marlene Cordero PA-C NREUS2 Mn S Bldg 01/11/2024 2:30 PM Noel Daniels MD [facility] 01/11/2024 3:15 PM Noel Daniels MD [facility] 02/06/2024 11:00 AM Ruddy Gupta MD [...] (L89.620) Pressure injury of left heel, unstageable ([facility]) (primary encounter diagnosis) Comment: Unstageable pressure injury [...] -Monitor for any s/s of infection- notify SUPERVISOR NET MAKING/MD of any pertinent findings -Wound care orders [...] which included preparing to see the patient, dznh-si-tutr patient care, completing clinical documentation, reviewing separately [...] today's visit on 12/13/2023. SIGNATURE: Sharan Dominguez APRN.CNP, CWOCN PATIENT NAME: Chikis Tobar DATE: December 13, 2023 OFFICE #: [phone] PAGER/CELL: [phone] documented in this encounterMercy Health – The Jewish Hospital08-27-2024 History of Present illness Narrative* Dilcia Carl APRN.CNP - 12/11/2023 2:08 PM EDT Images from [...] Dept Phone 12/13/2023 12:30 PM SHARAN DOMINGUEZ [facility] [phone] 12/21/2023 9:00 AM REGGIE BUTELR Mn S Bldg [phone] 01/09/2024 10:00 AM JAMIE MCCARTY Mn G Bldg [phone] 01/10/2024 10:20 AM XR [facility] 01/10/2024 11:00 AM AASHISH MONGE Hosp [phone] 01/10/2024 2:[address] 2 MAIN QB (I-STAT) Mn Q Bldg [phone] 01/10/2024 3:00 PM MARLENE CORDERO Mn S Bldg [phone] 01/11/2024 2:30 PM NOEL DANIELS [place] [facility] [phone] 01/11/2024 3:15 PM NOEL DANIELS [place] [facility] [phone] 02/06/2024 11:00 AM RUDDY GUPTA [facility] [phone] HPI: (Per discharge summary) 58-year-old female with [...] L1-S2 spinal levels and underwent Certas RF PSYCH NURSE shunt with meningeal biopsy showing fungal hyphae elements. She was followed by ID at [facility] and was on posaconazole. She is s/p shunt externalization at [facility] (06/27/23) during abdominal surgery for SBO and eventual VPS explantation (07/10/23). She was o riginally scheduled for shunt reinternalization with Dr. Oconnor on 11/20/23. She fell due to leg spasms and presented to OSH ED and admitted on 10/07/23. Found to have L tibial fx s/p intramedullary nailDr. Darleen at [facility] (10/08/23). She was then transferred to [facility] for shuntreimplantation. She is s/p VPS reimplantation [...] uncontrolled pain exacerbations. Medications: Medications listed in [facility] during SNF admission may not be current. [...] nursing staff. Electronically signed by Dilcia Carl APRN.SUPERVISOR NET MAKING documented in this encounterMercy Health – The Jewish Hospital08-26-2024 History of Present illness Narrative* Dilcia Carl APRN.CNP - 12/10/2023 12:26 PM EDT med refilled documented in this encounterMercy Health – The Jewish Hospital08-22-2024 History of Present illness Narrative* Dilcia Carl APRN.CNP - 12/06/2023 5:32 PM EDT Images from [...] 9:00 AM REGGIE BUTLER Mn S [facility] [phone] 01/09/2024 10:00 AM JAMIE MCCARTY G Bl [phone] 01/10/2024 10:20 AM XR [facility] 01/10/2024 11:00 AM AASHISH MONGE [facility] [phone] 01/10/2024 2:[address] 2 MAIN QB (I-STAT) Mn Q Bldg [phone] 01/10/2024 3:00 PM MARLENE CORDERO S Bl [phone] 01/11/2024 2:30 PM NOEL DANIELS F [phone] 01/11/2024 3:15 PM NOEL DANIELS [phone] HPI: (Per discharge summary) 58-year-old female with [...] L1-S2 spinal levels and underwent Certas RF PSYCH NURSE shunt with meningeal biopsy showing fungal hyphae elements. She was followed by ID at [facility] and was on posaconazole. She is s/p shunt externalization at [facility] (06/27/23) during abdominal surgery for SBO and eventual VPS explantation (07/10/23). She was o riginally scheduled for shunt reinternalization with Dr. Oconnor on 11/20/23. She fell due to leg spasms and presented to OSH ED and admitted on 10/07/23. Found to have L tibial fx s/p intramedullary nailDr. Darleen at [facility] (10/08/23). She was then transferred to [facility] [place] for shuntreimplantation. She is s/p VPS reimplantation [...] uncontrolled pain exacerbations. Medications: Medications listed in [facility] during SNF admission may not be current. [...] by Dilcia Carl APRN.MARIS documented in this encounterMercy Health – The Jewish Hospital08-21-2024 History of Present illness Narrative* Sharan Dominguez APRN.MARIS - 12/05/2023 6:49 AM EDT Images from the original note were not included. [facility] PROVIDER PROGRAM - FOLLOW UP VISIT PATIENT NAME: Chikis Tobar SERVICE DATE: 12/05/[address]23 PLACE OF SERVICE FOR THIS VISIT: Shelter Facility (POS 31), Facility Name: [facility] Level of Care: Skilled Asked to see [...] Department Center 12/05/2023 11:00 AM Sharan Dominguez APRN.SUPERVISOR NET MAKING [facility] 12/21/2023 9:00 AM Reggie Butler MD NREUS2 Mn S Bldg 01/09/2024 10:00 AM Jamie Mccarty MD INFDMN Mn G Bldg 01/10/2024 10:20 AM XR [facility] RGFV [facility] H[facility] 01/10/2024 11:00 AM Aashish Mogne PA-C ORFWHP [facility] Hosp 01/10/2024 2:00 PM [...] (L89.620) Pressure injury of left heel, unstageable ([facility]) (primary encounter diagnosis) Comment: Decreased measurements noted [...] -Monitor for any s/s of infection- notify SUPERVISOR NET MAKING/MD of any pertinent findings -Wound care orders [...] which included preparing to see the patient, zpmz-ja-tglh patient care, completing clinical documentation, reviewing separately obtained history, performing a medically appropriate examination, counseling and educating the patient/family/caregiver, and communicating with other HCPs (not separately reported). Joint visit made with iRa Sandoval LPN. Plan of Care discussed with facility nursing staff, patient, and referring provider. Wound care was performed during visit. All documentation from previous visit of 11/29/2023 was copied and pasted, documentation has been reviewed and edited as necessary for today's visit on 12/05/2023. SIGNATURE: Sharan Dominguez APRN.GONZALEZ POLLOCK PATIENT NAME: Chikis Tobar DATE: December 05, 2023 OFFICE #: [phone] PAGER/CELL: [phone] documented in this encounterMercy Health – The Jewish Hospital08-20-2024 History of Present illness Narrative* Dilcia Carl APRN.MARIS - 12/04/2023 2:47 PM EDT med refilled documented in this encounterMercy Health – The Jewish Hospital08-20-2024 Instructions* Patient Instructions* Noel Daniels MD - [...] antibiotics, pleasecall and inform our office at [phone]. We may have to post-pone the injection [...] skin should be examined by a health landcare officer to rule out infection. If you experience [...] treated with medications if needed. Use of anez-jbo-fhfjlst medication (such as Tylenol) and ice packs [...] clinic if you have any questions at [phone]. documented in this encounterMercy Health – The Jewish Hospital08-20-2024 History of Present illness Narrative* Noel Daniels [...] was accompanied by self. Medical records from [facility] were reviewed. Chikis Tobar is a 58 year old right-handed female with past medical history of T1DM cb/ DKA, urothelial carcinoma of the bladder s/p radical cystectomy and ileal conduit c/b SBO (Dec 2021), HTN, chronic sinusitis, asthma, fungal meningitis, myelitis and hydrocephalus status post PSYCH NURSE shunt plac ement June 2022, externalization on 06/25/2023, removal 07/10/2023 and reimplantation on 10/15/2023. Per chart review - patient was initially evaluated at [facility] in May 2021 after she was found unresponsive by her family. Initial workup showed DKA and hydrocephalus on head CT with concern of possible infectious process. MRI showed multiple enhancing areas in anterior sabra, medulla and spinal cord (C7-T3, L1-S2). She was transferred to [facility] on 06/15/2022 for further management. Intradural exploration biopsy with T5-T7 laminectomy and EVD placement performed on 06/26/2022 by neurosurgery. Biopsy was notable for fungal hyphae on GMS stain and she was started on posaconazole per infectious disease. PSYCH NURSE shunt placement performed on 07/10/[address] showing interval decrease. She was discharged to acute inpatient rehabilitation at [facility] on 07/21/22. She was discharged home with family on 08/01/2022. She presented to [facility] ER on 06/25/2023 and was diagnosed with bowel obstruction for which she was taken emergently to the OR for exploratory laparotomy. She had bilateral ureteral reimplantation and PSYCH NURSE shunt externalization. PSYCH NURSE shunt was removed on 07/09. She was discharged home on p.o. diet on 07/14/2023. She was admitted at [facility] on 10/07/2023 for left distal tibial fracture [...] was discharged to acute inpatient rehab at [facility] on 10/20/2023. Patient noted to have spasticity in lower extremity associated with pain. Robaxin was stopped and Zanaflex was recommended for spasticity and gabapentin for pain associated with spasticity. She was discharged to residential facility on 11/03/2023. Symptoms/Functional Limitations Related to [...] 2 to 3 weeks after removal of PSYCH NURSE shunt. She was walking by dragging her [...] She mentions little regression after discharge from [place] [facility] and attributes it likely to increasespasms and spasticity in lower extremity. She is not sure if there is any weakness as spasms/facility is interfering involuntary movements. She remembers [facility] a [facility] but it was not continued at the current residential facility. She is unable to tell if [...] angle cisterns, along the surface of the asbra and medulla compared to prior exam. No [...] myelitis and hydrocephalus st atus post initial PSYCH NURSE shunt placement June 2022 and reimplantation in [...] myelitis started in May 2021 status post PSYCH NURSE shunt placement. She has had impaired mobility [...] failed: PT/OT and Tizanidine CPT Codes: Limbs: 25966, 64042, 68912 and 12741 EMG guidance: 03294 Limb(s) / area(s) injected: Bilateral knee flexors [...] which included preparing to see the patient, exqw-ms-koxn patient care, completing clinical documentation, performing a medically appropriate examination, counseling and educating the patient/family/caregiver, ordering medications, tests, or p rocedures and communicating results to the patient/family/caregiver. Noel Daniels MD Physical Medicine & Rehab [facility] documented in this encounterMercy Health – The Jewish Hospital08-16-2024 Telephone encounter Note * Telephone Encounter - [...] she verbalized understanding and agrees with plan [facility] Work Phone: [phone] Miscellaneous Notes* Telephone Encounter - Sheree Montez [...] you ask the patient or family if [facility] is convenient or if [facility]? Looks like my next opening [...] To: Melo Livingston MD; Ten Gibson MD [facility] Dr Livingston and Dr Gibson Chikis is a very nice lady Dr Oconnor and I have been working with. She originally had a PSYCH NURSE shunt implanted for fungal meningitis and was doing great. Back in June, her shunt was removed at [facility] during emergent surgery for bowel obstruction. Once [...] relief. Thank you! Marlene documented in this encounterMercy Health – The Jewish Hospital08-16-2024 Telephone encounter Note * Telephone Encounter - Sheree Montez RN - 11/30/2023 10:23 AM EDT ----- Message from Melo Livingston MD sent at 11/29/2023 4:53 PM EDT ----- Aaliyah, can you ask the patient or family if [facility] is convenient or if [place] is preferred? Looks like my next opening [...] To: Melo Livingston MD; Ten Gibson MD [facility] Dr Livingston and Dr Gibson, Chikis is a very nice lady Dr Oconnor and I have been working with. She originally had a PSYCH NURSE shunt implanted for fungal meningitis and was doing great. Back in June, her shunt was removed at [facility] during emergent surgery for bowel obstruction. Once [...] her get some relief. Thank you! Marlene [facility]08-15-2024 History of Present illness Narrative* Marlene Cordero PA-C - 11/29/2023 4:00 PM EDT CC: PSYCH NURSE shunt f/u HPI: Mrs Chikis Tobar comes to clinic today for surgical f/u. She had a PSYCH NURSE shunt reimplanted on 10/11/23. Chikis's shunt was previously removed at [facility] on 07/10/23 following surgery for bowel obstruction [...] with a history of communicating hydrocephalus. Her PSYCH NURSE shunt was removed on 07/10/23 following laparotomy [...] in detail possible benefits and risks of PSYCH NURSE shunt adjustment. After discussion with Chikis, she agreed to undergo shunt adjustment. Certas valve shunt was adjusted from 7 to 8. We discussed in detail the warning signs and symptoms of overdrainage as well as w hen to contact our office or present to the ED if concern is severe. Follow up in [address] brain. Consult and message sent to [facility] requesting appt Plan: Shunt information Shunt type: Certas Initial settin New settin Marlene Cordero PA-C documented in this encounterMercy Health – The Jewish Hospital08-15-2024 History of Present illness Narrative* Nikky Lino [...] PATIENT PRESENTS WITH AN IMPLANTABLE OR ATTACHED SUPERINTENDENT CEMETERY: No RADIOLOGY DEPARTMENT: CT; Exam(s) Completed: Brain PERIPHERAL IV DATA: Not applicable SIGNED BY: RT Jeffery(R) November 29, 2023 3:01 PM documented in this encounterMercy Health – The Jewish Hospital08-15-2024 History of Present illness Narrative* Sharan Dominguez APRN.SUPERVISOR NET MAKING - 11/29/2023 3:02 PM EDT Images from the original note were not included. [facility] PROVIDER PROGRAM - FOLLOW UP VISIT PATIENT NAME: Chikis Tobar SERVICE DATE: 11/29/[address] PL[address] OF SERVICE FOR THIS VISIT: Shelter Facility (POS 31), Facility Name: [facility] Level of Care: Skilled Asked to see [...] -Monitor for any s/s of infection- notify SUPERVISOR NET MAKING/MD of any pertinent findings -Wound care orders [...] which included preparing to see the patient, fkgg-wi-ewey patient care, completing clinical documentation, reviewing separately [...] today's visit on 11/29/2023. SIGNATURE: Sharan Dominguez APRN.MARIS,GONZALEZ PATIENT NAME: Chikis Tobar DATE: November 29, 2023 OFFICE #: [phone] PAGER/CELL: [phone] documented in this encounterMercy Health – The Jewish Hospital08-15-2024 History of Present illness Narrative* Dilcia Carl APRN.SUPERVISOR NET MAKING - 11/29/2023 11:29 AM EDT Images from [...] Dept Phone 11/29/2023 12:00 PM SHARAN DOMINGUEZ [facility] [phone] 11/29/2023 2:00 PM JAMIE MCCARTY Mn G Bldg [phone] 11/29/2023 3:[address] MAIN CA Mn Ca Bldg [phone] 11/29/2023 4:00 PM MARLENE CORDERO Mn S Bldg [phone] 12/21/2023 9:00 AM REGGIE BUTLER Mn S Bldg [phone] 01/10/2024 10:20 AM XR [facility] Hosp 01/10/2024 11:00 AM AASHISH MONGE Hosp [phone] HPI: (Per discharge summary) 58-year-old female with [...] L1-S2 spinal levels and underwent Certas RF PSYCH NURSE shunt with meningeal biopsy showing fungal hyphae elements. She was followed by ID at [facility] and was on posaconazole. She is s/p shunt externalization at [facility] (06/27/23) during abdominal surgery for SBO and eventual VPS explantation (07/10/23). She was o riginally scheduled for shunt reinternalization with Dr. Oconnor on 11/20/23. She fell due to leg spasms and presented to OSH ED and admitted on 10/07/23. Found to have L tibial fx s/p intramedullary nailDrGiancarlo Morejon at [facility] (10/08/23). She was then transferred to [facility] for shuntreimplantation. She is s/p VPS reimplantation [...] changes to be addressed at this time. /: No change in condition. Pt. participating in [...] nursing staff. Electronically signed by Dilcia Carl APRN.SUPERVISOR NET MAKING documented in this encounterMercy Health – The Jewish Hospital08-13-2024 History of Present illness Narrative* Dilcia Carl APRN.CNP - 11/27/2023 12:14 PM EDT pain med refilled documented in this [facility]08-13-2024 Instructions* Patient Instructions* Aashish Monge PA-C - 11/27/2023 9:38 AM EDT Wound care to left heel due to pressure ulcer. WBAT, ROMAT with PT. Ok to get up and work on gait training with PT. documented in this encounterMercy Health – The Jewish Hospital08-13-2024 History of Present illness Narrative* Aashish Monge PA-C - 11/27/2023 9:22 AM EDT Images from the original note were not included. Orthopaedic Surgery Clinic Established Visit Patient Date of : 1965 Date of Surgery: 10/08/2023 Procedure Performed: Left tibia IMN History: Patient presents to clinic 7 weeks postoperatively from the above procedure. She is doing okay today. She was at [facility] and is now at another SNF. She [...] x-rays Aashish Monge PA-C documented in this encounterMercy Health – The Jewish Hospital08-13-2024 History of Present illness Narrative* Katiana Hurley RT(R) - 11/27/2023 8:20 AM EDT Radiology [...] (Walker, Cane, Wheelchair, Crutches, etc.)? [facility] GEND[facility] DATA: Female. status: : No status: NO. PATIENT RELEVANT IMPLANT DATA REVIEWED: Not Applicable PATIENT PRESENTS WITH AN IMPLANTABLE OR ATTACHED SUPERINTENDENT CEMETERY: No RADIOLOGY DEPARTMENT: General X-ray: Exam(s) Completed: Lower Extremity X- Ray(s): Tibia Fibula, Left and Ankle, Left PERIPHERAL IV DATA: Not applicable SIGNED BY: RT Erendira(R) November 27, 2023 8:59 AM documented in this encounterMercy Health – The Jewish Hospital08-11-2024 History of Present illness Narrative* Mary Kay APRN.CNP - 11/25/2023 12:58 PM EDT error documented in this encounterMercy Health – The Jewish Hospital08-08-2024 History of Present illness Narrative* Dilcia Carl APRN.CNP - 11/22/2023 4:57 PM EDT Images from the original note were not included. Connected Care Unit Progress Note Patient Name: Chikis Tobar Patient Facility: [facility] Admit Date 11/09/23 Level of [...] Dept Phone 11/22/2023 12:00 PM SHARAN DOMINGUEZ [facility] [phone] 11/27/2023 8:20 AM XR [facility] H[facility] 11/27/2023 9:20 AM AASHISH MONGE [facility] Hosp [phone] 11/29/2023 3:[address] MAIN CA Mn Ca Bldg [phone] 11/29/2023 4:00 PM MARLENE CORDERO Mn S [facility] [phone] 12/21/2023 9:00 AM REGGIE BUTLER Bldg [phone] HPI: (Per discharge summary) 58-year-old female with [...] L1-S2 spinal levels and underwent Certas RF PSYCH NURSE shunt with meningeal biopsy showing fungal hyphae elements. She was followed by ID at [facility] and was on posaconazole. She is s/p shunt externalization at [facility] (06/27/23) during abdominal surgery for SBO and eventual VPS explantation (07/10/23). She was o riginally scheduled for shunt reinternalization with Dr. Oconnor on 11/20/23. She fell due to leg spasms and presented to OSH ED and admitted on 10/07/23. Found to have L tibial fx s/p intramedullary nailDr. Darleen at [facility] (10/08/23). She was then transferred to [facility] [place] for shuntreimplantation. She is s/p VPS reimplantation [...] nursing staff. Electronically signed by Dilcia Carl APRN.SUPERVISOR NET MAKING documented in this encounterMercy Health – The Jewish Hospital08-08-2024 History of Present illness Narrative* Sharan Dominguez APRN.MARIS - 11/22/2023 8:43 AM EDT Images from the original note were not included. [facility] PROVIDER PROGRAM - FOLLOW UP VISIT PATIENT NAME: Chikis Tobar SERVICE DATE: 11/22/[address]23 PLACE OF SERVICE FOR THIS VISIT: Shelter Facility (POS 31), Facility Name: [facility] Level of Care: Skilled Asked to see [...] Department Center 11/22/2023 12:00 PM Sharan Dominguez APRN.SUPERVISOR NET MAKING [facility] 11/27/2023 8:20 AM XR [facility] 11/27/2023 9:20 AM Aashish Monge PA-C ORFWHP [...] left foot with attention to heel- notify SUPERVISOR NET MAKING of results -Monitor for any s/s of infection- notify SUPERVISOR NET MAKING/MD of any pertinent findings -Wound care orders [...] which included preparing to see the patient, [id number] patient care, completing clinical documentation, reviewing separately [...] today's visit on 11/22/2023. SIGNATURE: Sharan Dominguez APRN.SUPERVISOR NET MAKING,CWOCN PATIENT NAME: Chikis Tobar DATE: November 22, 2023 OFFICE #: [phone] PAGER/CELL: [phone] documented in this encounterMercy Health [facility]08-06-2024 History of Present illness Narrative* Dilcia Carl APRN.CNP - 11/20/2023 1:28 PM EDT Images from [...] Dept Phone 11/22/2023 12:00 PM SHARAN DOMINGUEZ [facility] [phone] 11/27/2023 8:20 AM XR [facility] 11/27/2023 9:20 AM [facility]ATHLEENAASHISH [facility] [phone] 11/29/2023 3:[address] MAIN CA Mn Ca Bldg [phone] 11/29/2023 4:00 PM MARLENE CORDERO Mn S Bldg [phone] 12/21/2023 9:00 AM REGGIE BUTLER Mn S Bldg [phone] HPI: (Per discharge summary) 58-year-old female with [...] L1-S2 spinal levels and underwent Certas RF PSYCH NURSE shunt with meningeal biopsy showing fungal hyphae elements. She was followed by ID at [facility] and was on posaconazole. She is s/p shunt externalization at [facility] (06/27/23) during abdominal surgery for SBO and eventual VPS explantation (07/10/23). She was o riginally scheduled for shunt reinternalization with Dr. Oconnor on 11/20/23. She fell due to leg spasms and presented to OSH ED and admitted on 10/07/23. Found to have L tibial fx s/p intramedullary nailDr. Noelleidri at [facility] (10/08/23). She was then transferred to [facility] for shuntreimplantation. She is s/p VPS reimplantation [...] nursing staff. Electronically signed by Dilcia Carl APRN.SUPERVISOR NET MAKING documented in this encounterMercy Health – The Jewish Hospital08-05-2024 History of Present illness Narrative* Dilcia Carl APRN.CNP - 11/19/2023 12:25 PM EDT PDMP website checked and validated. All prescriptions have been APPROPRIATELY filled. No suspiciousactivity was identified. 11/19/2023 by Dilcia Carl APRN.SUPERVISOR NET MAKING documented in this encounterMercy Health – The Jewish Hospital08-02-2024 Instructions* Patient Instructions* Jamie Mccarty MD - 11/16/2023 4:35 PM EDT INSTRUCTIONS FOR CHIKIS AMADOU AND HER MEDICAL TEAM AT [facility]: Please STOP the posaconazole I will schedule her for a neurology consultation for the leg cramps Jamie Mccarty MD documented in this encounterMercy Health – The Jewish Hospital08-02-2024 Nurse Note* Chel Fu MA - 11/16/2023 4:01 PM EDT Pt can not stand [facility]08-02-2024 Nurse Note* Chel Fu MA - 11/16/2023 4:01 PM EDT Pt can not stand documented in this encounterMercy Health – The Jewish Hospital08-02-2024 History of Present illness Narrative* Jamie Mccarty [...] was performed and she was transferred to [facility]. She was found to have DKA. A CT head showed hydrocephalus with MRI on May 29 showing multiple enhancement in the anterior sabra, medulla, and in the spine at the level of C7-T3 and L1-S2. Multiple taps were performed and were unsuccessful. A PSYCH NURSE shunt was placed and patient underwent a [...] lobes (8 mm). LFTs 08/16 normal . PSYCH NURSE shunt was adjusted from 4 to 7 Posaconazole level 2.4 on 08/21/22 Developed a facial rash in September 2022, mainly the malar area, a few spots on the forehead. 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 She was seeing wound care at [facility] for her sacral area ulcer. Rx'd [...] and ambulatory, using a cane PRN. No PSYCH NURSE shunt issues. Balance has improved but still [...] MRI of the T spine. Admitted to [facility] 06/24-07/13/2023 Presented to [facility] 06/24 with c/f possible SBO. Patient was [...] spasms in both legs started after the PSYCH NURSE shunt was removed at [facility], so it seemed somehow related. The posaconazole [...] help decide length of therapy of posaconazole. PSYCH NURSE shunt replacement was being planned for November2023. She suffered a fall after an episode of leg spasms. Admitted to local hospital and dx'd with comminuted fracture of Left distal tibial bone. From there, she was transferred to [facility] She underwent intramedullary nail placement to the Left tibia on 10/08/2023. 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 Seen by ID Dr Dominic Pablo for ID clearance for VPS. Dr Reagan saeed had no evidence of ongoing fungal infection. S/P PSYCH NURSE shunt (right occipital) 10/15/2023 (Dr Oconnor),Certas valve [...] continue same and FU with ID at [facility] Patient contacted me on MyChart on 10/30 [...] there was any improvement off posaconazole. Per [facility] notes (last was earlier today), she was [...] her feet was the day after the PSYCH NURSE shunt was reimplanted. The next day, therapy came and spasms started again. Some have theorized that the spasms were controlled by the anesthesia in the OR the day before. Then went to [facility], and was able to take a few steps with the parallel bars but nothing like at [facility] on POD 1. Plan was to try a ketty system to pull her along when walking, but never did it. No SHANNON. Shunt 6--> 7. CTH done at rehab after the MRI on 10/18/23; told there was too much fluid being drained and adjusted to 7 (which was the setting of the previous shunt before it was removed at [facility]) Still has decreased sensation in both legs. [...] 100% SKIN: no rosacea H: right occipital PSYCH NURSE shunt palpable along its track and nontender. [...] BICEPS TRICEPS DELTS Wrist Ext Wrist Flex Artist Mannequin Coloring R 5/5 5/5 5/5 5/5 5/5 5/5 [...] Finger nose finger: normal LABORATORIES Latest Ref Rng 11/05/2023 WBC 3.70 [...] Abs Lymph 1.00 - 4.00 k/uL 1.26 Glasscock% % 9.9 Abs Glasscock <0.87 k/uL 0.48 Eosin% % 4.7 Abs [...] 4.8 mg/dL 3.8 CRP <0.9 mg/dL <0.3 Latest Reference Range & Units 06/28/22 [...] - 90 % 98 (H) 80 71 Glasscock%, CSF 10 - 50 % 2 (L) [...] culture negative 07/02 CSF culture 07/02 NG Pruden fungal PCR PCR from biopsy tissue both negative ([facility]) 06/28 CSF (labelled lumbar puncture but is from EVD): MNGS negative 06/27 CSF (labelled lumbar puncture but is from EVD): No growth, Crypto antigen negative 06/26 OR cultures Dural/subdural itradural thoracic lesion Tissue: gram stain negative. NGTD Wound culture: gram stain negative. NGTD AFB smear no organsims. Fungal: smear: no fungus seen Pruden bacterial, fungal and AFB PCRs: negative (entire [...] DKA - 05/29/22 MRI brain from [facility] with leptomeningeal enhancement, communicating hydrocephalus - 06/07/22 MRI spine with diffuse LMD throughout spinal cord and cauda equina with loculated CSF in anterior thecal sac at C7-T3 with posterior displacement of cord and cord compression. T4-9 intramedullary hyperintensity suggesting cord edema due to compression superiorly - Course complicated by unsuccessful LP attempts at [facility] then transferred to [facility] - s/p cisternal tap 06/16/22 with limited [...] with fungal hyphae confirmed on multiple sections. Pruden PCR and cultures all negative, including the tissue block in its entirety sent for universal fungal PCR and negative - CSF 06/28/22 negative on Next Gen sequencing - posaconazole started 06/29/22 - s/p PSYCH NURSE shunt on 07/10.and improving MS since then. - small subdural hygromas over frontal convexities on CT 08/16/22, shunt settings adjusted - facial rash in September 2022, mainly the malar area, a few spots on the forehead. Dx'd with rosacea by PCP and started on metronidazole gel, improved - sacral area ulcer, saw wound care at [facility]. Rx'd with medical honey gel and [...] From there, she was transferred to [facility] She underwent intramedullary nail placement to the Left tibia on 10/08/2023. 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 Seen by ID Dr Dominic Pablo for ID clearance for VPS. Dr Reagan saeed had no evidence of ongoing fungal infection. S/P PSYCH NURSE shunt (right occipital) 10/15/2023 (Dr Oconnor),Certas valve [...] continue same and FU with ID at [facility]. Ongoing leg spasms, gabapentin and Robaxin not working. Labs negative including Mg, Phos, Ca Etiology of the ongoing bilateral leg spasms unclear. Not better after placement of PSYCH NURSE shunt 10/15/23. Last MRI 10/18/23 shows no [...] - if no better, may refer to [facility] for spasticity - isavuconazole is an option also (given some degree of contrast enhancement still) Jamie Mccarty MD November 16, 2023 I spent a total of 65 minutes on the date of the service which included preparing to see the patient, review of multiple MRI scans, [id number]-[id number] patient care, completing clinical documentation, obtaining and/or reviewing separately obtained history, performing a medically appropriate examination, counseling and educating the patient/family/caregiver, ordering medications, tests, or procedures, independently interpreting results (not separately reported), communicating results to the patient/family/caregiver, and care coordination (not separately reported) documented in this encounterMercy Health – The Jewish Hospital08-02-2024 History of Present illness Narrative* Dilcia Carl APRN.SUPERVISOR NET MAKING - 11/16/2023 11:03 AM EDT Images from [...] Dept Phone 11/16/2023 3:30 PM JAMIE MCCARTY G Bldg [phone] 11/22/2023 1:[address] MAIN F30 (I-STAT) Mn F Bldg [phone] 11/27/2023 8:20 AM XR [facility] 11/27/2023 9:20 AM AASHISH MONGE [facility] H[facility] [phone] 11/29/2023 3:[address] MAIN CA Mn Ca Bldg [phone] 11/29/2023 4:00 PM MARLENE CORDERO Mn S Bldg [phone] 12/21/2023 9:00 AM REGGIE BUTLER Mn S Bldg [phone] HPI: (Per discharge summary) 58-year-old female with [...] L1-S2 spinal levels and underwent Certas RF PSYCH NURSE shunt with meningeal biopsy showing fungal hyphae elements. She was followed by ID at [facility] and was on posaconazole. She is s/p shunt externalization at [facility] (06/27/23) during abdominal surgery for SBO and eventual VPS explantation (07/10/23). She was o riginally scheduled for shunt reinternalization with Dr. Oconnor on 11/20/23. She fell due to leg spasms and presented to OSH ED and admitted on 10/07/23. Found to have L tibial fx s/p intramedullary nailDr. Darleen at [facility] (10/08/23). She was then transferred to [facility] for shuntreimplantation. She is s/p VPS reimplantation [...] nursing staff. Electronically signed by Dilcia Carl APRN.SUPERVISOR NET MAKING documented in this encounterMercy Health – The Jewish Hospital08-01-2024 History of Present illness Narrative* Sharan Dominguez APRN.MARIS - 11/15/2023 6:31 AM EDT Images from the original note were not included. [facility] PROVIDER PROGRAM - FOLLOW UP VISIT PATIENT NAME: Chikis Tobar SERVICE DATE: 11/15/[address] PL[address] OF SERVICE FOR THIS VISIT: Shelter Facility (POS [address]), Facility Name: [facility] Level of Care: Skilled Asked to see [...] RGFV Fv Hosp 11/27/2023 9:20 AM Aashish Moneg PA-C [facility] H[facility] 11/29/2023 3:15 PM [...] -Monitor for any s/s of infection- notify SUPERVISOR NET MAKING/MD of any pertinent findings -Wound care orders [...] which included preparing to see the patient, [id number] patient care, completing clinical documentation, reviewing separately [...] Tobar DATE: November 15, 2023 OFFICE #: [phone] PAGER/CELL: [phone] documented in this encounterMercy Health – The Jewish Hospital07-31-2024 History of Present illness Narrative* Dilcia Calr APRN.CNP - 11/14/2023 3:39 PM EDT Images from the original note were not included. Connected Care Unit Progress Note Patient Name: Chikis Tobar Patient Facility: [facility] Facility Admit Date 11/09/23 Level of [...] Dept Phone 11/15/2023 2:30 PM SHARAN DOMINGUEZ [facility] [phone] 11/16/2023 2:30 PM JAMIE MCCARTY G Bldg [phone] 11/22/2023 1:[address] MAIN F30 (I-STAT) Mn F Bldg [phone] 11/27/2023 8:20 AM XR [facility] 11/27/2023 9:20 AM AASHISH MONGE [facility] H[facility] [phone] 11/29/2023 3:[address] MAIN CA Mn Ca Bldg [phone] 11/29/2023 4:00 PM MARLENE CORDERO Mn S Bldg [phone] 12/21/2023 9:00 AM REGGIE BUTLER Mn S Bldg [phone] HPI: (Per discharge summary) 58-year-old female with [...] L1-S2 spinal levels and underwent Certas RF PSYCH NURSE shunt with meningeal biopsy showing fungal hyphae elements. She was followed by ID at [facility] and was on posaconazole. She is s/p shunt externalization at [facility] (06/27/23) during abdominal surgery for SBO and eventual VPS explantation (07/10/23). She was o riginally scheduled for shunt reinternalization with Dr. Oconnor on 11/20/23. She fell due to leg spasms and presented to OSH ED and admitted on 10/07/23. Found to have L tibial fx s/p intramedullary nailDrGiancarlo Morejon at [facility] (10/08/23). She was then transferred to [facility] for shuntreimplantation. She is s/p VPS reimplantation [...] nursing staff. Electronically signed by Dilcia Carl APRN.SUPERVISOR NET MAKING documented in this encounterMercy Health – The Jewish Hospital07-25-2024 History and physical note * Amelia Parisi, - 11/08/2023 9:17 PM EDT Images from [...] regarding the above plan. Total time spent pjxu-rj-vswt and/or counseling and coordinating care on the skilled care unit for patient was approximately 50 min Voice recognition software was used to create this note; inadvertent visual education teacher errors may be present. SUBJECTIVE (HISTORY) Chief Complaint: weak HPI: This is a 58 year old female who [facility]-11/07/23 Summary of Rehab Course: content [...] L1-S2 spinal levels and underwent Certas RF PSYCH NURSE shunt with meningeal biopsy showing fungal hyphae elements. She was followed by ID at [facility] and was on posaconazole. She is s/p shunt externalization at [facility] (06/27/23) during abdominal surgery for SBO and eventual VPS explantation (07/10/23). She was o riginally scheduled for shunt reinternalization with Dr. Oconnor on 11/20/23. She fell due to leg spasms and presented to OSH ED and admitted on 10/07/23. Found to have L tibial fx s/p intramedullary nailDr. Darleen at [facility] (10/08/23). She was then transferred to [facility] for shuntreimplantation. She is s/p VPS reimplantation [...] Jamie REMY MD -Posaconazole 300 mg daily Current issues [...] 6AM, Weekends, & Holidays, page nurse practitioner air carrier operations inspector. Use subscriber ID: [email or web address] at website: [email or web address] [facility]07-25-2024 History and physical note* Amelia Parisi DO [...] regarding the above plan. Total time spent [id number] and/or counseling and coordinating care on the skilled care unit for patient was approximately 50 min Voice recognition software was used to create this note; inadvertent visual education teacher errors may be present. SUBJECTIVE (HISTORY) Chief Complaint: weak HPI: This is a 58 year old female who [facility]-11/07/23 Summary of Rehab Course: content [...] L1-S2 spinal levels and underwent Certas RF PSYCH NURSE shunt with meningeal biopsy showing fungal hyphae elements. She was followed by ID at [facility] and was on posaconazole. She is s/p shunt externalization at [facility] (06/27/23) during abdominal surgery for SBO and eventual VPS explantation (07/10/23). She was o riginally scheduled for shunt reinternalization with Dr. Oconnor on 11/20/23. She fell due to leg spasms and presented to OSH ED and admitted on 10/07/23. Found to have L tibial fx s/p intramedullary nailDr. Randallri at [facility] (10/08/23). She was then transferred to [facility] [place] shuntreim[place]. She is s/p VPS reimplantation [...] biopsy. path rare fungal hyphae Mgmt per ID, Jamie Mccarty MD -Posaconazole 300 mg daily Current issues [...] biopsy. path rare fungal hyphae Mgmt per ID, Jamie Mccarty MD -Posaconazole 300 mg daily # muscle spasms Plan: Increase zanaflex Monitor # HTN Plan: Monitor On lisinopril Metoprolol # wounds Wound care following SIGNATURE: Amelia Parisi DO PATIENT : Chikis Tobar DATE: November 08 2023 TIME: Provider Coverage: Weekdays 6PM to 6AM, Weekends, & Holidays, page nurse practitioner air carrier operations inspector. Use subscriber ID: [email or web address] at website: [email or web address] documented in this encounterMercy Health – The Jewish Hospital07-25-2024 History of Present illness Narrative* Sharan Dominguez APRN.SUPERVISOR NET MAKING - 11/08/2023 3:[address] [facility] PROVIDER PROGRAM - NEW PATIENT CONSULTATION- SNF PATIENT NAME: Chikis Tobar SERVICE DATE: 11/08/[address] PL[address] OF SERVICE FOR THIS VISIT: Shelter Facility (POS [address]), Facility Name: [facility] Level of Care: Skilled Asked to see [...] -Monitor for any s/s of infection- notify SUPERVISOR NET MAKING/MD of any pertinent findings -D/C previous wound care orders -Initiate wound care orders as follows to prevent infection and reduce maceration: Wound Care Order: - Cleanse wound and periwound skin with normal saline and gauze, gently pat dry. - Apply betadine liberally to DTI and periwound. - Cover with ABD and kerlix - Change dressing daily and PRN. (L89.216) Pressure injury of deep tissue of left [...] Department Center 11/09/2023 1:15 PM Katiana Huang APRN.SUPERVISOR NET MAKING ENDOAV Rej 11/16/2023 2:30 PM Jamie Mccarty [...] APPETITE: fair MEDICATION REVIEW Medications listed in [facility] during SNF admission may not be current. [...] which included preparing to see the patient, haje-lm-anak patient care, completing clinical documentation, reviewing separately obtained history, performing a medically appropriate examination, counseling and educating the patient/family/caregiver, and communicating with other HCPs (not separately reported). Joint visit made with Daniel Sandoval LPN Plan of Care discussed with facility nursing staff, patient, and referring provider. Mobile WOC group to assume care for this condition unless otherwise heard back from the referring provider Wound care was performed during visit. SIGNATURE: Sharan Dominguez APRN.GONZALEZ POLLOCK PATIENT NAME: Chikis Tobar DATE: November 08, 2023 OFFICE #: PAGER/CONTACT #: [phone] documented in this encounterMercy Health – The Jewish Hospital07-25-2024 Telephone encounter Note * Telephone Encounter - Madeleine Broderick - 11/08/2023 2:21 PM EDT Date Referral Received: 11/08/2023 Referral Source: [facility]07-25-2024 Miscellaneous Notes* Telephone Encounter - Madeleine Broderick - 11/08/2023 2:21 PM EDT Date Referral Received: 11/08/2023 Referral Source: SNF [facility] documented in this encounterMercy Health – The Jewish Hospital07-17-2024 History of Present illness Narrative* Marlene Cordero PA-C - 10/31/2023 1:17 PM EDT CC: PSYCH NURSE shunt f/u HPI: Mrs Chikis Tobar comes to clinic today for surgical f/u. She had a PSYCH NURSE shunt implanted on 10/11/23. Since surgery, Chikis [...] with a history of communicating hydrocephalus. Her PSYCH NURSE shunt was removed on 07/10/23 following laparotomy [...] in detail possible benefits and risks of PSYCH NURSE shunt adjustment. After discussion with Chikis due [...] settin Marlene Cordero PA-C documented in this encounterMercy Health – The Jewish Hospital07-15-2024 History of Present illness Narrative* Th[place] [...] PATIENT PRESENTS WITH AN IMPLANTABLE OR ATTACHED SUPERINTENDENT CEMETERY: No RADIOLOGY DEPARTMENT: CT; Exam(s) Completed: Brain PERIPHERAL IV DATA: Not applicable SIGNED BY: SERENITY CASTELLANOS October 29, 2023 2:04 PM documented in this encounterMercy Health – The Jewish Hospital07-15-2024 NoteHNO ID: [id number] Author: THIERRY HILL[place] CT Service: Radiology Author [...] PATIENT PRESENTS WITH AN IMPLANTABLE OR ATTACHED SUPERINTENDENT CEMETERY: No RADIOLOGY DEPARTMENT: CT; Exam(s) Completed: Brain PERIPHERAL IV DATA: Not applicable SIGNED BY: SERENITY CASTELLANOS October 29, 2023 2:04 [id number] History of Present illness Narrative* Vamshi Spencer RN - 10/25/2023 12:19 PM EDT Name: Chikis Tobar October 25, 2023 Date of Surgery/Injury: 10/08/23 Procedure(s): Intramedullary nail of left tibia fracture, CPT 65208 Closed treatment of left proximal fibula, CPT 99323 Subjective:Patient presents today for post op splint/dressing [...] reviewed by Dr. Morejon Assessment and Plan: -[place]/Sutures removed and Steri-Strips placed: Allow steri-strips to [...] Aashish Monge PA-C/Dr. Morejon documented in this encounterMercy Health – The Jewish Hospital07-11-2024 Instructions* Patient Instructions* Vamshi Spencer RN - 10/25/2023 12:16 PM EDT Continue PT/OT WBAT in a tall CAM boot. Pad heel/foot as needed Ok to remove for PT/OT and hygiene -Lorna/Sutures removed -Ok to shower, pat incision area dry. No soaking/submerging documented in this encounterMercy Health – The Jewish Hospital07-11-2024 History of Present illness Narrative* Kofi Meneses [...] PATIENT PRESENTS WITH AN IMPLANTABLE OR ATTACHED SUPERINTENDENT CEMETERY: No RADIOLOGY DEPARTMENT: General X-ray: Exam(s) Completed: Lower Extremity X- Ray(s): Tibia Fibula, Left and Ankle, Left PERIPHERAL IV DATA: Not applicable SIGNED BY: RT Sanju(R) October 25, 2023 11:59 AM documented in this encounterMercy Health – The Jewish Hospital07-06-2024 History of Present illness Narrative* Cassidy Navarrete - 10/20/2023 4:24 PM EDT [facility] PRECERT NOTE [facility]. Precert approved through unk. For any additional questions regarding approvals, transport or care management needs, please contact the CM assigned to this patient in the Treatment Team. SIGNATURE: Cassidy Navarrete DATE: October 22, 2023 TIME: 9:54 AM documented in this encounterMercy Health – The Jewish Hospital06-22-2024 Telephone encounter Note * Telephone Encounter - Caro Bradley MD - 10/06/2023 3:51 PM EDT 68 years old female status post fall requested to be transferred from [facility] to [place] for tibia/fibula fracture will need ortho PT/OT evaluation. [facility] Work Phone: 1(341) 299-737806-22-2024 Miscellaneous Notes* Telephone Encounter - Caro Bradley MD - 10/06/2023 3:51 PM EDT 68 years old female status post fall requested to be transferred from [facility] to [place] for tibia/fibula fracture will need ortho PT/OT evaluation. documented in this encounterMercy Health – The Jewish [facility] Evaluation + Plan note Extracted from:Title:ED NoteAuthor:Venancio [...] EDT, 10/06/23 14:26:00 EDT Transfer Patient to XR Ankle 3+ Views Left [facility]06-20-2024 History of Present illness Narrative* [...] PATIENT PRESENTS WITH AN IMPLANTABLE OR ATTACHED SUPERINTENDENT CEMETERY: No RADIOLOGY DEPARTMENT: Ultrasound PERIPHERAL IV DATA: Not applicable SIGNED BY: Dione Pepper RDMS October 04, 2023 3:26 PM documented in this encounterMercy Health [facility]06-20-[facility]24 History of Present illness Narrative* Marlene Cordero PA-C - 10/04/2023 1:17 PM EDT CC: Communicating hydrocephalus HPI: Miss Chikis Tobar presents for wound check at VPS removal site. Chikis's shunt was removed at [facility] on 07/10/23 following surgery for bowel obstruction. [...] with a history of communicating hydrocephalus. Her PSYCH NURSE shunt was removed on 07/10/23 following laparotomy [...] ED Marlene Cordero PA-C documented in this encounterMercy Health – The Jewish Hospital06-20-2024 History of Present illness Narrative* Mamadou Garcia [...] was performed and she was transferred to [facility]. She was found to have DKA. A CT head showed hydrocephalus with MRI on May 29 showing multiple enhancement in the anterior sabra, medulla, and in the spine at the level of C7-T3 and L1-S2. Multiple taps were performed and were unsuccessful. A PSYCH NURSE shunt was placed and patient underwent a [...] lobes (8 mm). LFTs 08/16 normal . PSYCH NURSE shunt was adjusted from 4 to 7 Posaconazole level 2.4 on 08/21/22 Developed a facial rash in September 2022, mainly the malar area, a few spots on the forehead. 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 She was seeing wound care at [facility] for her sacral area ulcer. Rx'd [...] and ambulatory, using a cane PRN. No PSYCH NURSE shunt issues. Balance has improved but still [...] MRI of the T spine. Admitted to [facility] 06/24-07/13/2023 Presented to [facility] 06/24 with c/f possible SBO. Patient was [...] (BAQSIMI) 3 mg/actuation nasal spray Use 1 Calumet in the nose as needed. acetaminophen (TYLENOL) 325 mg tablet Take 2 tablets by mouth every 6 hours as needed for pain. fexofenadine (ALESSIO) 180 mg tablet Take by mouth. PRN No current facility-administered medications for this visit. PHYSICAL EXAM PSYCHIATRIC: Oriented x 3, appropriate affect, SKIN: dried scab lesion on scalp without erythema or discharge H: no lesions. PSYCH NURSE shunt palpable along its track and nontender [...] BICEPS TRICEPS DELTS Wrist Ext Wrist Flex Artist Mannequin Coloring R 5/5 5/5 5/5 5/5 5/5 5/5 [...] culture negative 07/02 CSF culture 07/02 NG Pruden fungal PCR PCR from biopsy tissue both negative ([facility]) 06/28 CSF (labelled lumbar puncture but is from EVD): MNGS negative 06/27 CSF (labelled lumbar puncture but is from EVD): No growth, Crypto antigen negative 06/26 OR cultures Dural/subdural itradural thoracic lesion Tissue: gram stain negative. NGTD Wound culture: gram stain negative. NGTD AFB smear no organsims. Fungal: smear: no fungus seen Pruden bacterial, fungal and AFB PCRs: negative (entire [...] DKA - 05/29/22 MRI brain from [facility] with leptomeningeal enhancement, communicating hydrocephalus - 06/07/22 MRI spine with diffuse LMD throughout spinal cord and cauda equina with loculated CSF in anterior thecal sac at C7-T3 with posterior displacement of cord and cord compression. T4-9 intramedullary hyperintensity suggesting cord edema due to compression superiorly - Course complicated by unsuccessful LP attempts at [facility] then transferred to [facility] - s/p cisternal tap 06/16/22 with limited [...] with fungal hyphae confirmed on multiple sections. Pruden PCR and cultures all negative, including the tissue block in its entirety sent for universal fungal PCR and negative - CSF 06/28/22 negative on Next Gen sequencing - posaconazole started 06/29/22 - s/p PSYCH NURSE shunt on 07/10.and improving MS since then. - small subdural hygromas over frontal convexities on CT 08/16/22, shunt settings adjusted - facial rash in September 2022, mainly the malar area, a few spots on the forehead. Dx'd with rosacea by PCP and started on metronidazole gel, improved - sacral area ulcer, saw wound care at [facility]. Rx'd with medical honey gel and [...] 3. The downside of posaconazole is lower OFFICE SUPPORT SPECIALIST penetration than voriconazole, but voriconaole has no activity against mucor. Will continue with posaconazole, given clinical and MRI improvement. Her current symptoms are atypical and not what would be expected with just hydrocephalus given lackof headache. She reports lower extremity spasms, intermittently every day since the PSYCH NURSE shunt was removed at [facility]. Exam does not clearly show spasticity today [...] if any, are noted Jamie Mccarty MD, [facility] Infectious Diseases Staff Section Neuro-ID October 04, 2023 I spent a total of 50 minutes on the date of the service, separate from teaching/education time, which included preparing to see the patient, review of records, review of relevant guidelines and medical literature to assist in medical decision making, [id number] patient care, completing clinical d ocumentation, obtaining and/or reviewing separately obtained history, performing a medically appropriate examination, counseling and educating the patient/family/caregiver, ordering medications, tests, or procedures, independently interpreting results (not separately reported), communicating results to the patient/family/caregiver, and care coordination (not separately reported) documented in this encounterMercy Health – The [facility] Hospital06-06-2024 Telephone encounter Note * Telephone Encounter - Marlene Cordero PA-C - 09/20/2023 11:42 AM EDT Call to Chikis, All questions answered. Marlene Cordero PA-C [facility] Work Phone: [phone]) 373-911606-06-2024 Miscellaneous Notes* Telephone Encounter - Marlene Cordero PA-C - 09/20/2023 11:42 AM EDT Call to Chikis, All questions answered. Marlene Cordero PA-C documented in this encounterMercy Health – The [facility] Hospital06-05-2024 Telephone encounter Note * Telephone Encounter - Jamie Mccarty MD - 09/19/2023 6:38 PM EDT ID STAFF Spoke with patient Saw [facility] neuro for her leg flexion and gait problems. Told her they were concerned the fungal infection was back, and ordered MRI of brain and spine Pt says her current problems with the legs involuntarily flexing started about 2-3 weeks [facility], and never had these symptoms when the fungal meningitis was active Note from Neuro pending Has been taking the posaconazole without problems She also notes scabs on the scalp and sutures still present where the [facility] Plan: - add on visit with me try 10/04/23 - has virtual visit with NSGY on 10/03-- will see if can be changed to in person - continue posaconazole Jamie Mccarty MD September 19, 2023 [facility]06-05-2024 Miscellaneous Notes* Telephone Encounter - Jamie Mccarty [...] weeks after the shunt was removed at [facility], and never had these symptoms when the fungal meningitis was active Note from Neuro pending Has been taking the posaconazole without problems She also notes scabs on the scalp and sutures still present where the PS[facility]CH NURSE sh[place] [facility] Plan: - add on visit with me try 10/04/23 - has virtual visit with NSGY on 10/03-- will see if can be changed to in person - continue posaconazole Jamie Mccarty MD September 19, 2023 documented in this encounterMercy Health – [facility] Hospital06-04-2024 Instructions* Patient Instructions* Lex Ervin MD - [...] or you can send a message through [employer]. You can also now schedule and select appointments through [employer]. Lex Ervin MD documented in this encounterMercy Health – The [facility] Hospital06-04-2024 History of Present illness Narrative* Tonie Rosado MD - 09/18/2023 8:02 AM EDT [facility] - NEW PATIENT EVALUATION Referring Provider: Marlene Cordero [id number] [address] [facility] [id number] Primary Care Provider: Kalli Simons MD [address] [place] [phone] Dear Marlene Cordero: Thank you for referring [...] taps were performed and were unsuccessful. A PSYCH NURSE shunt was placed and the patient underwent a meningeal biopsy with pathology showing-a elements. CSF NexGen sequencing was negative. She was admitted to [facility] on June 25, 2023 for obstructed bowel. She had abdominal surgery and at the time the PSYCH NURSE shunt was externalized. Prior to going into [...] (BAQSIMI) 3 mg/actuation nasal spray Use 1 Calumet in the nose as needed. acetaminophen (TYLENOL) [...] pathological reflexes: Rhea's absent. Tromner absent. Coordination Zfkeiy-eb-kyzg, rapid alternating movements and fmkd-ep-[id number] normal bilaterally without dysmetria. Gait Casual gait: [...] meningitis in May 2022 c/b hydrocephalus s/p PSYCH NURSE shunt and subsequent removal in June 2023 after a bowel obstruction at [facility]. She developed progressive weakness and involuntary movements [...] reflects my opinion. Tonie Rosado M.D. Clinical Academic Director, [facility] [employer] [facility] Staff, [facility] Neurological [place] Department of Neurology [facility] Section Medical Decision Making: Problems: Moderate: New problem with uncertain prognosis Data: Unique source(s) for external note(s) reviewed: 2 Unique test result(s) reviewed: 3+ Unique test(s) ordered: 3+ Medical Decision Making Level: 4 - Moderate documented in this encounterMercy Health – The Jewish Hospital06-01-2024 History of Present illness Narrative* Zheng, September, BACK UP SCAN COORDINATOR.SUPERVISOR NET MAKING - 02/01/2024 3:31 PM EDT Images from the original note were not included. Connected Care Unit Progress Note Patient Name: Chikis Tobar Patient Facility[facility] Admit Date 11/09/2023 Level of Care: [...] ECHO was ~ 2019 per patient. Her Administrative Law Judge is in [place]. Has ileal conduit urinary diversion (radical cystectomy w/ creation of ileal conduit in 04/2021 for urothelial carcinoma). -c/w lasix 20 mg po daily + K -elevate legs when possible -c/w Lisinopril, Toprol, Lasix -Establish with a local advertising sales assistant - may need echo September Appointments for Next 60 Days Date Time Provider Location Dept Phone 02/06/2024 11:00 AM RUDDY GUPTA [phone] 02/11/2024 9:00 AM DARIEN STRICKLAND [facility] [phone] 02/11/2024 3:30 PM NOEL DANIELS [facility] [phone] 02/14/2024 6:[address] [facility] [phone] 03/21/2024 11:00 AM REGGIE BUTLER [facility] [phone] HPI: (Per DC Summary) 11/07/2023: admit: 10/20/2023 [...] L1-S2 spinal levels and underwent Certas RF PSYCH NURSE shunt with meningeal biopsy showing fungal hyphae elements. She was followed by ID at [facility] and was on posaconazole. She is s/p shunt externalization at [facility] (06/27/23) during abdominal surgery for SBO and eventual VPS explantation (07/10/23). She was o riginally scheduled for shunt reinternalization with Dr. Oconnor on 11/20/23. She fell due to leg spasms and presented to OSH ED and admitted on 10/07/23. Found to have L tibial fx s/p intramedullary nailDr. Randallri at [facility] (10/08/23). She was then transferred to [facility] for shuntreimplantation. She is s/p VPS reimplantation by Dr. Oconnro and Dr. Evans on 10/14. Intraoperative CSF [...] functional transfer evaluation and training, and speech theraudrey mcdonald for language evaluation and speech re-education. Team [...] in wheel chair in her room at [facility]. Pt is A&O x 3, pleasant and very good historian. C/o BLE spasms/tightness. Unable to lift LLE. Pt spoke with Neuro Dr Vargas via phone during my visit. and reviewed same. Recently had pred taper. On baclofen. Next Neuro andPhysical Medicine rehab appointemnts [place] scheduled 02/10. Pt with BLE with 2+ pitting edema (feet to thighs). Pt reports legs feel like concrete. In additionshe has a Left heel wound which is wrapped with kerlix. She is unable to ambulate. Last ECHO was ~ 2020 per patient. Her Administrative Law Judge is in [place]. Recommend establish local advertising sales assistant - may need ECHO. C/w Lasix daily, [...] BLE muscle spacticity/tightness due to hydrocephalus w/ PSYCH NURSE shunt Skin: Negative. Allergic/Immunologic: Negative. Neurological: Positive [...] nursing staff. Electronically signed by Fidelia Calzada APRN.SUPERVISOR NET MAKING documented in this encounterMercy Health – The Jewish Hospital06-01-2024 History of Present illness Narrative* Fidelia Calzada APRN.SUPERVISOR NET MAKING - 02/07/2024 9:46 PM EDT Images from the original note were not included. Connected Care Unit Progress Note Patient Name: Chikis Tobar Patient Facility: [facility] Facility Admit Date 11/09/2023 Level of Care: Skilled SNF Attending: Amelia Parisi D.O. Service Date: 02/07/2024 Code Status: Chief Complaint: Evaluation regarding mgmnt of acute and chronic conditions in skilled setting ASSESSMENT AND PLAN ASSESSMENT/PLAN: 1. 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 Pt had worsening symptoms and ventricles had increased. s/p VPS reimplantation on 10/14, intraoperative CSF cultures without growth 01/31: C/o BLE spasms/tightness. Unable to lift LLE. Pt spoke with Neuro Dr Vargas via phone during my visit. and reviewed same. Recently had pred taper. 02/06: Continues to have BLE spasms, increased symptoms at night per patient. Being followed by Neuro at [facility] and recently had 1/2 dose of Botox. [...] ECHO was ~ 2019 per patient. Her Administrative Law Judge is in [place]. Has ileal conduit urinary diversion (radical cystectomy w/ creation of ileal conduit in 04/2021 for urothelial carcinoma). 02/06: No change. -c/w lasix 20 mg po daily + K -elevate legs when possible -c/w Lisinopril, Toprol, Lasix -Establish with a local advertising sales assistant - may need echo September Appointments for Next 60 Days Date Time Provider Location Dept Phone 02/07/2024 1:30 PM SHARAN DOMINGUEZ [facility] [phone] 02/11/2024 9:00 AM DARIEN STRICKLAND [facility] [phone] 02/11/2024 3:30 PM NOEL DANIELS [facility] [phone] 02/14/2024 6:[address] [facility] [phone] 03/21/2024 11:00 AM REGGIE BUTLER [facility] [phone] HPI: (Per DC Summary) 11/07/2023: admit: 10/20/2023 [...] L1-S2 spinal levels and underwent Certas RF PSYCH NURSE shunt with meningeal biopsy showing fungal hyphae elements. She was followed by ID at [facility] and was on posaconazole. She is s/p shunt externalization at [facility] (06/27/23) during abdominal surgery for SBO and eventual VPS explantation (07/10/23). She was o riginally scheduled for shunt reinternalization with Dr. Oconnor on 11/20/23. She fell due to leg spasms and presented to [facility] ED and admitted on 10/07/23. Found to have L tibial fx s/p intramedullary nailDrGiancarlo Morejon at [facility] (10/08/23). She was then transferred to [facility] for shuntreimplantation. She is s/p VPS reimplantation [...] in wheel chair in her room at [facility]. Pt is A&O x 3, pleasant and very good historian. C/o BLE spasms/tightness. Unable to lift LLE. Pt spoke with Neuro Dr Vargas via phone during my visit. and reviewed same. Recently had pred taper. On baclofen. Next Neuro andPhysical Medicine rehab appointemnts [place] scheduled 02/10. Pt with BLE with 2+ pitting edema (feet to thighs). Pt reports legs feel like concrete. In additionshe has a Left heel wound which is wrapped with kerlix. She is unable to ambulate. Last ECHO was ~ 2019 per patient. Her Administrative Law Judge is in [place]. Recommend establish local advertising sales assistant - may need ECHO. C/w Lasix daily, elevated legs. Wearing MARCIE hose on RLE. Has heel ulcer with kelrix dressing. Has ileal conduit with indwelling catheter, urine clear yellow with (expected) white sediment. 02/06: Examined patient in wheel chair in room at [facility]. A&O x 3. Endorses poorly controlled BLE spasms which are worse at night . She spoke with Neurology and is taking baclofen. She hasvideo visit with Neuro on 02/10. No fevers/chills. Working with therapy and involved in activities at . Tolerating diet, Ileal conduit patient with yellow [...] BLE muscle spacticity/tightness due to hydrocephalus w/ PSYCH NURSE shunt Skin: Negative. Allergic/Immunologic: Negative. Neurological: Positive [...] by Fidelia Calzada APRN.MARIS documented in this encounterMercy Health – The Jewish Hospital06-01-2024 History of Present illness Narrative* Fidelia Calzada APRN.MARIS - 02/15/2024 6:32 PM EDT Images from the original note were not included. Connected Care Unit Discharge Summary SNF Connected Care Program [facility] [address], [address]) [place] [address] CONNECTED CARE DISCHARGE SUMMARY Service Date: 02/15/2024 Admission Date: 11/07/2023 Discharge Date: 02/15/2024 Facility: [facility] Level of Care: Skilled SNF Attending: Amelia Parisi D.O. Connected Care Primary Care Physician: Kalli Simons MD Principal Diagnosis: Obstructive hydrocephalus (hcc) (primary encounter diagnosis) Fungal meningitis S/p svp shunt Bilateral lower extremity edema Essential hypertension [...] L1-S2 spinal levels and underwent Certas RF PSYCH NURSE shunt with meningeal biopsy showing fungal hyphae elements. She was followed by ID at [facility] and was on posaconazole. She is s/p shunt externalization at [facility] (06/27/23) during abdominal surgery for SBO and eventual VPS explantation (07/10/23). She was originally scheduled for shunt reinternalization with Dr. Oconnor on 11/20/23. She fell due to leg spasms and presented to OSH ED and admitted on 10/07/23. Found to have L tibial fx s/p intramedullary nail Dr. Morejon at [facility] (10/08/23). She was then transferred to [facility] for shunt reimplantation. She is s/p VPS [...] by 01/17. Started Lasix 20 mg po / and changed to daily on 01/28. May need referral to lymphedema clinic. Discharge on 01/22 was held. Since patient restarted on Lasix she was concerned about getting a repeat Echo (Last Echo was ~ 2019 w/ her Administrative Law Judge in [place]). Pt is on ASA, Lisinopril, Toprol, Lasix. Recommended that patient establishes with a local advertising sales assistant . Echo was done ( ~ 02/04). Pt has made an appointment with Cardiology but couldn't get in until 05/29/2024. Pt states she will forward the ECHO to her Administrative Law Judge in [place] in the meantime. Was evaluated in ED [...] mouthonce daily. Functional Status: Modified independent + [facility] Scheduled Future Appointments: Future Appointments Date Time Provider Department Center 03/18/2024 9:00 AM [facility] 03/21/2024 11:00 AM Reggie Butler MD [facility] 04/10/2024 1:[address] 2 MAIN QB (I-STAT) [facility] 04/10/2024 2:00 PM Marlene Cordero PA-C [facility] 05/29/2024 1:00 PM Ruthy Jesus MD [facility] [place] 07/01/2024 4:00 PM Katiana Huang APRN.SUPERVISOR NET MAKING ENDOAV Rej 09/03/2024 2:40 PM Ruddy Gupta [...] with more than 50% of the total urvc-ca-hrcf time of the visitin counseling / coordination of care. Fidelia Calzada APRN.SUPERVISOR NET MAKING documented in this encounterMercy Health – The Jewish Hospital05-29-2024 Telephone encounter Note * Telephone Encounter - Yuridia Martinez RN - 09/12/2023 5:28 PM EDT Updated supply form faxed to [employer] as pt and I previously discussed. Fax confirmation received. [employer]: [facility]05-29-2024 Miscellaneous Notes* Telephone Encounter - Yuridia Martinez RN - 09/12/2023 5:28 PM EDT Updated supply form faxed to [employer] as pt and I previously discussed. Fax confirmation received. [employer]: * Telephone Encounter - Kacie Pettit PCNA - 09/12/2023 10:59 AM EDT Patient would like to give number to her supply [employer] [phone] Call back# [phone] Thank you, Kacie Pettit Coordinator II [facility] nursing documented in this encounterMercy Health – The Jewish Hospital05-29-2024 History of Present illness Narrative* Peterson Gonsalez MD - 09/12/2023 1:00 PM EDT [facility] ESTABLISHED PATIENT OFFICE [...] LPs, meningeal biopsy (positive for fungal hyphae), PSYCH NURSE shunt placement with clinical improvement with this [...] evidence of new intra-abdominal/pelvic abnormalities Admitted at [facility] 06/25/2023 for SBO s/p ex lap, RONALD, bilateral ureteral reimplantation with stent placement (removed 07/26/2023). Had PSYCH NURSE shunt removed during admission and noticed balance [...] 01/09/2022 7.40 7.35 - 7.45 Final Specific [place], Ur Date Value Ref Range Status 06/12/2022 [...] (BAQSIMI) 3 mg/actuation nasal spray Use 1 Calumet in the nose as needed. acetaminophen (TYLENOL) [...] s/p ex lap, RONALD, [facility]. Schedule renal US and obtain recent blood work results. Plan on surveillance imaging and labs in 1 year with VV to follow. She is having worsening symptoms from hydrocephalus, I will reach out to her neuro team about this. I spent a total of 40 minutes on the date of the service which included preparing to see the patient, [id number] patient care, completing clinical documentation, and obtaining [...] the above provider during this patient's care. Peetrson Gonsalez MD documented in this encounterMercy Health – The Jewish Hospital05-29-2024 Telephone encounter Note * Telephone Encounter - WilverJuly, - 09/12/2023 10:59 AM EDT Patient would like to give number to her supply company [employer] [phone] Call back# [phone] Thank you, Kacie Pettit Coordinator II [facility] nursing [facility]05-29-2024 History of Present illness Narrative* Yuridia Martinez RN - 09/12/2023 10:01 AM EDT WOC Nursing Consult Topic: WOC Consultation Note Outcome: Pt to A30 for appointment with WO Nursing. She has an established urostomy. She is here today for assessment and updated supply form. Per pt, pouching has been going well. She has been wearing her current system for quite a while and is very happy with it. She recently switched from [employer] to [employer] for supplies. She needs her supply form faxed to [facility]. Pt does not have contact information for [employer]. I requested she provide us with that information and we will be happy to fax her updated supply form to them. Pt will get their information when she gets home today and call WO Nursing office to provide it. Once we [...] varies Current pouching system: One-piece [employer]oplast [employer] [place] deep convex urostomy pouch Current wearing time: [...] ostomy . WOC Nurse Available Hours: M-F: 2300-0071; Weekends & Holidays: [phone] [facility] Nursing patient care needs - Page #[phone], during available hours only. * Yuridia Martinez RN - 09/12/2023 9:58 AM EDT [facility] [place] [id number] Patient: Chikis Tobar Patient Address: [address] [place] [address] [address] [facility] [address] Preferred Gender: female Date of : 1965 Type of Stoma: End Ileal Conduit Diagnosis: Bladder Cancer C76.9 OSTOMY SUPPLY ORDER FORM Adhesive Removers: [employer] Esenta Wipes #436147 30 day use - 2 Boxes Coloplast [place] One-Piece Urostomy Pouches: #88410 Pre-Cut 30 day use - 2 Boxes Misc. Accessories: Coloplast Elastic Barrier Strips # 207646 30 day use - 2 Boxes Powder: ConvaTec Stomahesive # 86243 30 day use - As Needed Skin Sealant: 3M Cavilon No Sting, 50/Box #3342 30 day use - 1 Box Refills: 11 Attending Physician: Dr. Gonsalez: Office [phone] For immediate authorization, please contact the physician s office. [facility] Nurse: GEMA Milton, CWOCN SIGNATURE: Yuridia Martinez RN PATIENT NAME: Chikis Tobar DATE: September 12, 2023 TIME: 9:59 AM CONTACT #: [phone] documented in this encounterMer[facility] Telephone encounter Note * Telephone Encounter - Marlene Cordero PA-C - 09/06/2023 11:03 AM EDT Call to Chikis, We discussed plan for surgery and movement visit. She is aware she is scheduled for first availableand neurology team is attempting to get her in sooner. Marlene Cordero PA-C [facility]05-23-2024 Miscellaneous Notes* Telephone Encounter - Marlene Cordero PA-C - 09/06/2023 11:03 AM EDT Call to Chikis, We discussed plan for surgery and movement visit. She is aware she is scheduled for first availableand neurology team is attempting to get her in sooner. Marlene Cordero PA-C documented in this encounterMercy [facility]05-23-2024 Telephone encounter Note * Telephone Encounter - Marlene Cordero PA-C - 09/06/2023 11:02 AM EDT Call to Chikis, steven discussed in detail. Marlene Cordero PA-C [facility] Work Phone: 1(936) 858-177605-23-2024 Miscellaneous Notes* Telephone Encounter - Marlene Cordero PA-C - 09/06/2023 11:02 AM EDT Call to Chikis, steven discussed in detail. Marlene Cordero PA-C documented in this encounterMercy Health [facility]05-23-2024 Telephone encounter Note * Telephone Encounter - Marlene Cordero PA-C - 09/06/2023 10:48 AM EDT Call to Chikis who agreed to plan for VPS on 11/20/23 with pre-ops on 10/31/23. She is aware that shecannot take blood thinners, aspirin, or NSAIDs within 7 days of surgery and vitamins/herbals [id number] days. All questions answered. She will have [facility] scanned into system. Discussed when to present to ED if necessary. Marlene Cordero PA-C [facility] Work Phone: 1(542) 960-867205-23-2024 Miscellaneous Notes* Telephone Encounter - Marlene Cordero PA-C - 09/06/2023 10:48 AM EDT Call to Chikis who agreed to plan for VPS on 11/20/23 with pre-ops on 10/31/23. She is aware that shecannot take blood thinners, aspirin, or NSAIDs within 7 days of surgery and vitamins/herbals [id number] days. All questions answered. [facility]. Discussed when to present to ED if necessary. Marlene Cordero PA-C documented in this encounterMercy Health [facility]05-21-2024 History of Present illness Narrative* Con Oconnor MD - 09/04/2023 10:30 AM EDT Chief Complaint: Communicating hydrocephalus History of Present Illness: Chikis Tobar is a 58 year old female with a past medical history of communicating hydrocephalus who is seen virtually in this distance health follow-up visit. Chikis was admitted at [facility] June 24 for obstructed bowel. She had [...] visit. Either the patient or their legal policy services representative has been informed of the risks and benefits of -- and alternatives to -- treatment through a remote evaluation andconsents to proceed with the evaluation remotely. I spent 30 minutes in this virtual distance health visit, with more than 50% of the total eipr-zn-rioo time of the visit in counseling / coordinationof care. SIGNATURE: Con Oconnor MD DATE of SERVICE: September 04, 2023 documented in this encounterMercy Health [facility]05-20-2024 Telephone encounter Note * Telephone Encounter - Brooks Pierson - 09/03/2023 10:23 AM EDT Chikis called in and wanted to know what all she needs to sign on her paperwork. She is refaxing the paperwork. She said they are giving her a hard time. Chikis can be reached at [phone]. .me [facility]05-20-2024 Miscellaneous Notes* Telephone Encounter - Brooks Pierson - 09/03/2023 10:23 AM EDT Chikis called in and wanted to know what all she needs to sign on her paperwork. She is refaxing the paperwork. She said they are giving her a hard time. Chikis can be reached at [phone]. .me documented in this encounterMercy Health [facility]05-16-2024 History of Present illness Narrative* Marlene Cordero PA-C - 08/30/2023 10:00 AM EDT CC: PSYCH NURSE shunt f/u HPI: Mrs Chikis Tobar comes [...] she underwent laparotomy for bowel obstruction at [facility], during procedure her shunt was externalized. After [...] seen for hospital follow up. Chikis underwent PSYCH NURSE shunt placement on 07/10/22 as inpatient. 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 On 06/27/23 she underwent laparotomy for bowel obstruction at [facility], during procedure her shunt was externalized. After [...] ventricles compared to last brain scan at [facility] on 05/09/23. Discussed the need for evaluation by movement neurology team. Will repeat CT brain at that visit. Red flag symptomsdiscussed and when to present to ED. Will also discuss proceeding with shunt reimplantation with Dr Elvin Cordero PA-C documented in this encounterMercy Health [facility]05-14-2024 Telephone encounter Note * Telephone Encounter - Fiorella Jung RN - 08/28/2023 2:31 PM EDT Called and spoke with patient. Asked if she had received supplies from [employer] yet or if she decided to switch to [facility]. Asked because [employer] sent a fax over this morning for Dr. Chambers to sign for supplies. She said she is good with [employer] and asked us to get rid of the orders from [employer]. She said they have been very difficult to work with and she prefers not to work with them any more. She said she called and filed a complaint about them through her insurance company. She thanked me for calling her to clarify and didn't have any further questions. [id number] Miscellaneous Notes* Telephone Encounter - Fiorella Jung RN - 08/28/2023 2:31 PM EDT Called and spoke with patient. Asked if she had received supplies from [employer] yet or if she decided to switch to [employer]. Asked because [employer] sent a fax over this morning for Dr. Chambers to sign for supplies. She said she is good with [employer] and asked us to get rid of the orders from [employer]. She said they have been very difficult to work with and she prefers not to work with them any more. She said she called and filed a complaint about them through her insurance company. She thanked me for calling her to clarify and didn't have any further questions. documented in this [id number] Telephone encounter Note* Telephone Encounter - Nivia [...] Patient stated understanding and appreciated phone call. [id number] Telephone encounter Note* Telephone Encounter - Nivia [...] she has a follow up appt at [facility] because she was told to go with [...] trying? Or send a mychart message? Thanks [id number] Miscellaneous Notes* Telephone Encounter - Nivia Dalton [...] she has a follow up appt at [facility] because she was told to go with whoever can get Her in first. Can you please either call her to discuss symptoms, and please let me know when to scheduled her Thank you Maurilio ----- Message ----- From: Nivia Dalton, RN Sent: 08/22/2023 11:46 AM EDT To: [...] a mychart message? Thanks documented in this [id number] Telephone encounter Note* Telephone Encounter - Fiorella Jung RN - 08/23/2023 9:48 AM EDT Spoke with Lucie. Order resent to [facility] yesterday, 08/22, as previous order was sent to [facility]. [id number] Miscellaneous Notes* Telephone Encounter - Fiorella Jung RN - 08/23/2023 9:48 AM EDT Spoke with Lucie. Order resent to [facility] yesterday, 08/22, as previous order was [...] will be visiting patients soon. Thank you. [phone] documented in this [id number] Telephone encounter Note* Telephone Encounter - Maurilio Salvador - 08/23/2023 9:23 AM EDT 08/22/23 Purpose: Admin Coordinator Received VM from patient inquiring to schedule an appointment with Dr. Figueroa as she has newer some concerning symptoms Outcome: Coordinator tried to call patient back a few times with no option to leave a VM. It just disconnects. Plan: Will send a TellMihart message to inform patient and request return call [id number] Miscellaneous Notes* Telephone Encounter - Maurilio Salvador - 08/23/2023 9:23 AM EDT 08/22/23 Purpose: Admin Coordinator Received VM from patient inquiring to schedule an appointment with Dr. Figueroa as she has newer some concerning symptoms Outcome: Coordinator tried to call patient back a few times with no option to leave a VM. It just disconnects. Plan: Will send a TellMihart message to inform patient and request return call documented in this [id number] Telephone encounter Note* Telephone Encounter - Noel Ramírez - 08/23/2023 8:21 AM EDT Wound ostomy nurse Jennifer Sandhu called to speak with the uro coordinator about this patient regarding some paperwork questions. Please call her back to speak with her, or Epic chat her. She would prefer the epic chat as she will be visiting patients soon. Thank you. [phone] [id number] Telephone encounter Note* Telephone Encounter - Fiorella Jung RN - 08/22/2023 3:53 PM EDT Called and spoke with [facility]. Upon further review, pt's DME order was sent to [facility]. Order resent to [facility]. [id number] Miscellaneous Notes* Telephone Encounter - Fiorella Jung RN - 08/22/2023 3:53 PM EDT Called and spoke with [facility]. Upon further review, pt's DME order was sent to [facility]. Order resent to [facility]. * Telephone Encounter - Khoi Medina - 08/22/2023 1:13 PM EDT Another policy services representative form [facility] called to urge that the patient's prescription for ostomy supplies be signed and sent back to them. The patient's health plan is complaining that they haven't been signed, and neither [facility] nor the health plan have any orders or information associated with the patient's urologist at [facility] or ostomy/colorectal team at [facility]. The order that they have is the referral/order entered 07/30/23 (apparently under Jennifer Zamora RN). * Telephone Encounter - Noel Ramírez - 08/20/2023 1:38 PM EDT Paulette from [facility] is calling about out mutual patient. They have an order for ostomy supplies for the patient however it has not been signed off on by a doctor. Please resubmit the order with the Drs approval on it. Thank you. [phone] documented in this [id number] Telephone encounter Note* Telephone Encounter - Khoi Medina - 08/22/2023 1:13 PM EDT Another policy services representative form [facility] called to urge that the patient's prescription for ostomy supplies be signed and sent back to them. The patient's health plan is complaining that they haven't been signed, and neither [facility] nor the health plan have any orders or information associated with the patient's urologist at [facility] or ostomy/colorectal team at [facility]. The order that they have is the referral/order entered 07/30/23 (apparently under Jennifer Zamora RN). [id number] Telephone encounter Note* Telephone Encounter - Noel Ramírez - 08/20/2023 1:38 PM EDT Paulette from [facility] is calling about out mutual patient. They have an order for ostomy supplies for the patient however it has not been signed off on by a doctor. Please resubmit the order with the Drs approval on it. Thank you. [phone] [id number] History of Present illness Narrative* Aashish Monge PA-C - 08/14/2023 2:30 PM EDT Orthopaedic Surgery Clinic Established Visit Date of Injury: 04/11/24 Injury: Left patella fracture History: Patient presents to clinic 5 months from the above injury. She is doing okay today. She was recently admitted to [facility] for 3 weeks for health issues related [...] -Follow up: 3 months with x-rays Aashish Mnoge PA-C documented in this encounterMercy [facility]04-30-2024 History of Present illness Narrative* Carmen Barnes [...] PATIENT PRESENTS WITH AN IMPLANTABLE OR ATTACHED SUPERINTENDENT CEMETERY: Yes [facility] RADIOLOGY DEPARTMENT: General X-ray: Exam(s) Completed: Lower Extremity X- Ray(s): Knee, AP / LAT Left PERIPHERAL IV DATA: Not applicable SIGNED BY: RT Rocio(R) August 14, 2023 12:51 PM documented in this encounterMercy Health [facility]04-25-2024 Telephone encounter Note * Telephone Encounter - Dion Andujar RN - 08/09/2023 2:33 PM EDT Wound Ostomy Continence (WOC) Nursing Received phone call from [employer] (Pt's insurance) stating that she had been working on trying to figure out the hold-up of patient receiving supplies from [facility]. Had planned for conference call with policy services representative from [employer] on 08/07 but no phone call ever received. Another phone call received from [employer] at 1420 on 08/08 stating that another DME company is able to accept pt's insurance and that Chikis gave permission for info to be sent there. DME order &most recent WOC note faxed to [facility] at . Confirmation received at 1430 eastern time. Will follow up with patient as needed. GEMA Krishnan RN, CWOCN' [id number] Miscellaneous Notes* Telephone Encounter - Dion Andujar RN - 08/09/2023 2:33 PM EDT Wound Ostomy Continence (WOC) Nursing Received phone call from [employer] (Pt's insurance) stating that she had been working on trying to figure out the hold-up of patient receiving supplies from [facility]. Had planned for conference call with policy services representative from [employer] on 08/07 but no phone call ever received. Another phone call received from [employer] at 1420 on 08/08 stating that another [employer] company is able to accept pt's insurance and that Chikis gave permission for info to be sent there. DME order &most recent WOC note faxed to [facility] at . Confirmation received at 1430 eastern time. Will follow up with patient as needed. GEMA Krishnan RN, CWOCN' documented in this [id number] Telephone encounter Note* Telephone Encounter - Yuridia Martinez RN - 08/08/2023 4:56 PM EDT WOC nursing returned patient message regarding: Pt needs an updated supply form and chart notes faxed to [facility]. Left Message: No- spoke directly to pt Information/Recommendations provided regarding: Pt has not been seen since 2021. Offered pt an appointment at [facility] nursing out-pt clinic for updated chart notes & supply form. She agreed to come in. Appointment scheduled for 08/21/23 at 8:15 am. All needs addressed. Time spent: 15 minutes GEMA Milton, RN, CWOCN For non-emergent [facility] Nursing patient care needs - Please place a consult via Epic under ostomy . [facility] Nurse Available Hours: M-F: [phone]; Weekends & Holidays: [phone] [facility] Nursing patient care needs - Page #[phone], during available hours only. [facility]04-24-[facility] Miscellaneous Notes* Telephone Encounter - Yuridia Martinez RN - 08/08/2023 4:[address] [facility] nursing returned patient message regarding: Pt needs an updated supply form and chart notes faxed to [facility] [employer]. Left Message: No- spoke directly to pt Information/Recommendations provided regarding: Pt has not been seen since 2021. Offered pt an appointment at [facility] nursing out-pt clinic for updated chart notes & supply form. She agreed to come in. Appointment scheduled for 08/21/23 at 8:15 am. All needs addressed. Time spent: 15 minutes GEMA Milton, RN, CWOCN For non-emergent [facility] Nursing patient care needs - Please place a consult via Epic under ostomy . [facility] Nurse Available Hours: M-F: [phone]; Weekends & Holidays: [phone] [facility] Nursing patient care needs - Page #[phone], during available hours only. * Telephone Encounter - Kacie Pettit PCNA - 08/08/2023 2:56 PM EDT Patient would like to speak to a stoma nurse needs an updated scripts for supplies. Call back# [phone] Thank you, Kacie Pettit Coordinator II [facility] nursing documented in this encounterMercy Health [facility]04-24-2024 Telephone encounter Note * Telephone Encounter - Kacie PettitPIPPA - 08/08/2023 2:56 PM EDT Patient would like to speak to a stoma nurse needs an updated scripts for supplies. Call back# [phone] Thank you, Kacie Pettit Coordinator II [facility] nursing [facility]04-23-[facility] Telephone encounter Note* Telephone Encounter - Dion Andujar RN - 08/07/2023 8:18 AM EDT Wound Ostomy Continence (WOC) Nursing Pt left VM on 08/05 stating the DME company still had not received her ostomy supply order. Called [facility] who confirmed no order was received despite multiple faxes being sent. Rep from the ostomy department stated she would talk to her network control supervisor to check on fax system and use [...] is planning to fill out and return. ANDREA KrishnanN RN, CWOCN [id number] Miscellaneous Notes* Telephone Encounter - Dion Andujar, RN - 08/07/2023 8:18 AM EDT Wound Ostomy Continence (WOC) Nursing Pt left VM on 08/05 stating the DME company still had not received her ostomy supply order. Called [facility] [employer] who confirmed no order was received despite multiple faxes being sent. Rep from the ostomy department stated she would talk to her network control supervisor to check on fax system and use [...] GEMA Krishnan RN, CWOCN documented in this [id number] Telephone encounter Note* Telephone Encounter - Dion Andujar RN - 08/03/2023 8:05 AM EDT Wound Ostomy Continence (WOC) Nursing Pt called and left VM stating [employer], did not receive DME order and is unableto send supplies. Confirmed that DME order was placed 07/30/23 and faxed to correct provided number.Call placed to [employer] and left for ostomy department. Awaiting call [...] they have her order and info correct. GEAM Krishnan RN, CWOCN [id number] Miscellaneous Notes* Telephone Encounter - Dion Andujar RN - 08/03/2023 8:05 AM EDT Wound Ostomy Continence (WOC) Nursing Pt called and left VM stating [employer] [employer], did not receive DME order and is unableto send supplies. Confirmed that DME order was placed 07/30/23 and faxed to correct provided number.Call placed to [employer] company and VM left for ostomy department. Awaiting call back 1430 Addendum: Call placed to [employer] [facility] again who stated no DME order was received on the . Personally faxed order to [employer] who confirmed fax number was correct. Fax confirmation received 08/03/23 at 1438. Called pt to update her and recommend she call today or tomorrow to confirm they have her order and info correct. ANDREA KrishnanN RN, CWOCN documented in this [id number] Miscellaneous Notes* Telephone Encounter - Akila Yepez - 08/02/2023 9:15 AM EDT Contacted patient and scheduled an appointment with Aashish Monge PA-C and charan on 08/14/23. documented in this encounterMercy Health [facility]04-15-2024 Telephone encounter Note * Telephone Encounter - Jennifer Sandhu RN - 07/30/2023 8:17 AM EDT Wound Ostomy Continence (WOC) Nursing Message received from patient that [facility] is OON for ostomy supply DME. She placed a callto her insurance and found that a company by the name of [employer] is in network andcan ship her supplies to her home. New DME order placed with request to send to [employer] Phone # and Fax # , she was able to start an account with them and her acct # is [id number]. Requested patient to call with any further issues. Jennifer Sandhu MSN, RN, CWOCN [id number] Miscellaneous Notes* Telephone Encounter - Jennifer Sandhu RN - 07/30/2023 8:17 AM EDT Wound Ostomy Continence (WOC) Nursing Message received from patient that [employer] is OON for ostomy supply DME. She placed a callto her insurance and found that a company by the name of [employer] is in network andcan ship her supplies to her home. New DME order placed with request to send to [employer] Phone # and Fax # , she was able to start an account with them and her acct # is [id number]. Requested patient to call with any further issues. Jennifer Sandhu MSN, RN, CWOCN documented in this [id number] History of Present illness Narrative* Arlene Chambers [...] insulin pen needle 31g x 5 mm [place] for Lantus solostar 100 Each 0 acetaminophen [...] 4 mg/0.1 mL nasal liquid Use 1 [place] in one nostril (alternate sides) as needed [...] Component Case Report Surgical Pathology Report Case: [id number] Authorizing Provider: Brooks Martinez MD Collected: 06/27/2023 1617 Ordering Location: [facility] Main OR Received: 06/28/2023 0851 Pathologist: Aarti Reyes MD Specimens: A) - [...] cm from the 2nd resection margin.. Sections: [employer] A1. First resection margin ( 1) A2. [...] and is unremarkable for any lesions. Sections: [employer] B1. Proximal resection margin (X) B2. Distal resection margin (X) B3 - B4.. Sections of full-thickness bowel (1 each ) Xochilt Correa MD Scans on Order [id number] Lab Result Document - Document on 07/03/2023 5:07 PM by Aarti Reyes MD Lab and Collection SPECIMEN FOR SURGICAL PATH (Order: [id number]) - 06/27/2023 Collection Information Specimen ID: 1 Tissue Small Bowel Collected: 06/27/2023 4:17 PM [email or web address] Received: 06/28/2023 8:51 AM Resulting Agency: [facility] [address] [facility] [id number] Specimen ID: 2 Tissue Bowel Collected: 06/27/2023 4:35 PM BROOKS MARTINEZ Received: 06/28/2023 8:51 AM Resulting Agency: [facility] [address] [place] [id number] Last Urine Cytology: none found going back to 04/24/2015 Radiology Data: None Impression: 58 year old White female recovering well s/p b/L ureteral reimplantation to ileal conduit 05/18 to iatrogenic injury during recent resection of [...] MD Arlene Gibson MD documented in this [id number] Instructions* Patient Instructions* Daniel Figueroa MD - 07/26/2023 11:41 AM EDT Please schedule CT head documented in this [id number] History of Present illness Narrative* Roman Thompson MTA - 07/26/2023 11:23 AM EDT Patient identfied by name and date of Pharmacy updated Vital signs taken Patent in exam room ready for MD * Daniel Figueroa MD - 07/26/2023 11:00 AM EDT [facility] Neurological Surgery post-op note: Chikis Tobar 58 year old female Postop visit s/p removal of R frontal PSYCH NURSE shunt on 07/10/23 HPI Managed with VPS [...] spinal levels and now s/p Certas RF PSYCH NURSE shunt (set at 7) with meningeal biopsy showing fungal hyphae elements followed by ID OP at [facility] on posaconazole who [facility] [facility] with c/f possible SBO. 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 Now shunt independent. Recovering well post surgery. Plan: CT head, will MyChart message with results No specific neurosurgical follow up Follow up as needed Daniel Figueroa MD MSc FRCSC FAANS Neurosurgeon Academic Director Department of Neurological Surgery [facility] [employer] [facility] Pager [phone] documented in this [id number] History of Present illness Narrative* Bradley Hernandez [...] spinal levels and now s/p Certas RF PSYCH NURSE shunt (set at 7) with meningeal biopsy showing fungal hyphae elements followed [facility] who presents to [facility] 06/24 with c/f possible SBO. Patient was [...] date of . documented in this encounterTHE VisitorsCafe SYSTEM Work Phone: 1(190) 415-863704-01-2024 Miscellaneous Notes* Telephone Encounter - Kacie Peterson HUC - 08/01/2023 9:44 AM EDT Prior authorization documentation Prior authorization process has been initiated for the following medication: Medication: Noxafil Dosage: [address] kunz Refills: 10 Provider: Bibiana The prior authorization has been: PENDED. [facility]: [id number] Insurance Company Name: [employer] Patient ID number: [id number] documented in [facility] Miscellaneous Notes* Telephone Encounter - Kacie Peterson HUC - 08/01/2023 10:21 AM EDT Attempted to call patient in regard to [facility] PAP form, vm is not set up. MC message sent * Telephone Encounter - Dwayne Wray - 07/31/2023 3:[address] Mccarty, Please see the below iRule message and contact patient to advise within 72 hours. Dwayne Bernstein I spoke to [email or web address] today. They kept telling me in the [...] to the new application. documented in this encounterMer[facility]03-29-2024 NoteThe [facility] History of Present illness Narrative* Jennifer Sandhu, RN - 07/13/2023 9:27 AM EDT Wound [...] Pouching System Applied: Coloplast SenSura [place] (Medium, 58 -1 16 ) Deep Convex MAXI Cut to Fit Urostomy Pouch #[id number], Brava moldable ring (4.2 mm) #[id number], Coloplast Brava U-shaped elastic barrierstrips #[id number], Coloplast gravity drainage bag #[id number] with bed [employer] #[id number] Expected Wear Time: 3-4 days Total [...] from the original note were not included. [facility] NEUROS[facility]GERY DAILY PROGRESS NOTE Overnight Events: No [...] PERRL, EOMI FS, TM Speech Intact BUE /, no drift BLE 08/18, no drift SILT Wound: cranial incision c/d/i; [...] spinal levels and now s/p Certas RF PSYCH NURSE shunt (set at 7) with meningeal biopsy [...] ostomy and is typically independent with care. WO Nursing assisted patient during this acute care stay. Per record, patient isset to discharge today. Ostomy supplies/DME order updated during this admission. Patient desires tohave all of her DMEs provided by one company vs multiple DME providers. [facility] also offers diabetic supplies (and several other medical supplies), patient aware. Hard copy of DME order request provided to patient with [employer] [facility]'s telephone #. No further questions/concerns. Type of Stoma: Ileal Conduit Location: RLQ Mucosa, as visualized through pouch: Red/moist Peristomal Skin: Unable to assess, pouch not removed today Output: light yellow urine with mucus Pouching System in Place: Coloplast SenSura [place] (Medium, 8 -1 16 ) Deep Convex MAXI Cut to Fit Urostomy Pouch #[id number], Brava moldable ring (4.2 mm) #[id number], Coloplast Brava U-shaped elastic barrier strips #[id number] Expected Wear Time: 3-4 days Extra ostomy supplies at bedside for home-going WOC team will continue to follow patient for ostomy care and education as appropriate. Plan for Next Visit: If patient remains admitted, [facility] Nursing will follow up 07/13/23 for routine ostomy care Jennifer LEAVITT, RN, CWOCN * Thi Lemus RN - 07/12/2023 9:21 AM EDT 07/12/23 0918 Assessment and Discharge Planning Evaluation READMISSION LESS THAN 30 DAYS No READMISSION RISK SCORE IS Rising Risk INTERVIEWED Patient;Chart Review COGNITIVE STATUS Oriented FUNCTIONAL STATUS PRIOR TO ADMISSION Ambulates with medical lab technician (cane, walker, etc.) (uses walker) LIVING SITUATION Home Alone Number of Steps 2 Bedroom floor level 1 Bathroom Floor Level 1 ADMISSION INSURANCE Medicare Medicare HMO (comment) ([employer]) Transportation to and/or from Appointments Family/Friend Provides Ride Home Oxygen No HOME HEALTH CARE PRIOR TO ADMISSION No Dialysis No DISCUSSSED WHAT HELP PATIENT WOULD NEED Yes SDOH Completed? Yes Reason for Readmisson Risk Score Cancer DX Case Management-Verified address, phone # and insurance with patient. Updated phone # in [employer]. Patient lives alone. Sister and nephew live next door and assist patient as needed. [facility] at [facility]. Patient independent in ostomy care. Will resume outpt PT after discharge. No case management needs identified. Thi Lemus RN [phone] * Concepción Carter PA-C - 07/12/2023 6:35 AM EDT Images from the original note were not included. [facility] NEUROSURGERY DAILY PROGRESS NOTE Overnight Events: No [...] 1152 93 07/11/23 0742 121 Comment: Notified RN YESI LOPEZ
LABS: CBC/PT/INR WBC RBC Hgb Hct MCV [...] spinal levels and now s/p Certas RF PSYCH NURSE shunt (set at 7) with meningeal biopsy [...] concerns. Concepción Carter PA-C Neurosurgery Service Pager: [phone] 07/12/2023 - 6:35 AM * Minal Pedraza [...] look at setting. 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 not know where area safety manager is From last endo note from [facility] [...] 07/11/23 0925 Posaconazole (NOXAFIL) 100 MG tablet TBEC 300 mg Oral Daily 300 mg [...] Resource Strain: Low Risk (06/16/2022) [facility] Overall Financial Resource Strain (CARDIA) Difficulty of Paying Living Expenses: Not hard at all Food Insecurity: No Food Insecurity (06/16/2022) Re[facility] Hunger Vital Sign Worried About Running Out of Food in the Last Year: Never true Ran Out of Food in the Last Year: Never true Transportation Needs: No Transportation Needs (06/16/2022) Re[facility] from [facility] PRAPARE - Transportation Lack of Transportation (Medical): [...] (H) 4.3 - 5.6 % Final Comment: [place] [employer] guidelines indicate that patients with HgbA1c in the range 5.7-6.4% are at increased risk for development of diabetes, and intervention by lifestyle modification may be beneficial. HgbA1c greater or equal to 6.5% is considered diagnostic of diabetes. 06/10/2022 8.6 (H) 4.3 - 5.6 % Final Comment: [place] [employer] guidelines indicate that patients with HgbA1c in the range 5.7-6.4% are at increased risk for development of diabetes, and intervention by lifestyle modification may be beneficial. HgbA1c greater or equal to 6.5% is considered diagnostic of diabetes. 04/13/2021 8.1 (H) 4.3 - 5.6 % Final Comment: [place] [employer] guidelines indicate that patients with [...] look at setting. 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 Zhane [...] pen, needles and syringes. Patient contacted her cane piler to get an early appointment Communicated that [...] from the original note were not included. [facility] NEUROS[facility]GERY DAILY PROGRESS NOTE Overnight Events: No [...] KEY MD
Follow Protocol
07/10/23 0858 400 07/10/23 0740 [...] 0436 2.7 Comment: Note updated reference ranges. 07/09/23 0436 1.7 Comment: Note updated reference ranges. Hepatic/Biliary/Pancreas [...] spinal levels and now s/p Certas RF PSYCH NURSE shunt (set at 7) with meningeal biopsy showing fungal hyphae elements followed by ID OP at [facility] on posaconazole who presents to [facility] 06/24 with c/f possible SBO. NSGYconsulted by ACS in setting of patient requiring surgical intervention for SBO and need for possible OR availability to externalize VPS. Valve setting increased to 8 (07/01): 3/18 EVD clamped. Shunt dialed from 7 --> [...] Hardin MD Neurological Surgery, PGY-2 Service Pager: [phone] 07/11/2023 - 6:38 AM * Jennifer Sandhu RN - 07/10/2023 2:57 PM EDT Images [...] Pouching System Applied: Coloplast SenSura [place] (Medium, 58 -1 16 ) Deep Convex MAXI Cut to Fit Urostomy Pouch #[id number], Brava moldable ring (4.2 mm) #[id number], Coloplast Brava U-shaped elastic barrierstrips #[id number] Expected Wear Time: 3-4 days Recommend GI [...] place Jennifer Sandhu MSN, RN, CWOCN Valentina James BSN, RN, CWOCN * Arian Rizo MD - [...] spinal levels and now s/p Certas RF PSYCH NURSE shunt (set at 7) with meningeal biopsy [...] hyperglycemia Arian Rizo MD Neurosurgery, Resident Pager: [phone] 07/10/2023 - 10:51 AM Please page the on-call pager after 6pm and on weekends * Nikhil Stearns RN - 07/10/2023 10:23 AM EDT 0745: Pt transported with this RN and FACILITIES MANAGEMENT EXECUTIVE to Preop for scheduled surgery. VSS pt [...] loop small bowel obstruction s/p externalization of PSYCH NURSE shunt, EVD, exploratory laparotomy, bilateral ureteroileal reimplant, [...] and recon of urostomy. 06/27: Awaiting ROBF. 15: NGT removed with return of bowel function. [...] INR 07/10/23 0355 24 07/10/23 0355 0.96 07/10/23354 7.2 2.72 7.8 24.2 89 17.7 633 07/09/23435 7.7 2.40 7.2 21.3 89 17.6 758 07/08/23441 6.6 2.48 7.8 21.8 88 18.0 581 Basic Metabolic Panel Na K Cl CO2 Gap Glu BUN Cr Ca Mg PO4 07/10/23354 137 4.5 106 23 13 328 11 [...] loop small bowel obstruction s/p externalization of PSYCH NURSE shunt, EVD, exploratory laparotomy, bilateral ureteroileal reimplant, uretroenterostomy, RONALD, bowel resection on 06/26 Diagnosis: - Small bowel obstruction with bowel ischemia - Iatrogenic injury to bilateral ureters with ureteral reimplantation - PSYCH NURSE shunt contamination - Externalization of PSYCH NURSE shunt PMHx: - HTN - Type 1 DM (on Insulin pump) - Asthma - 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 [facility] NEUROSURGERY DAILY PROGRESS NOTE Overnight Events NAEO NPO at NM for OR today. Preop labs reviewed. O: [...] Hct MCV RDW Plt PT aPTT INR 07/09/23435 7.7 2.40 7.2 21.3 89 17.6 [...] 110 24 11 149 12 0.45 8.1 07/08/232 3.6 Comment: Note updated reference ranges. 07/08/23441 1.4 Comment: Note updated reference ranges. 07/07/23346 143 3.9 110 27 10 98 12 0.40 8.1 07/07/237 3.4 Comment: Note updated reference ranges. 07/07/237 [...] spinal levels and now s/p Certas RF PSYCH NURSE shunt (set at 7) with meningeal biopsy showing fungal hyphae elements followed by ID OP at [facility] on posaconazole who presents to [facility] 06/24 with c/f possible SBO. NSGY consulted [...] to monitor for HTN -Diet: NPO at NM for OR today -Urology following for b/L [...] concerns. Arian Rizo MD Neurosurgery, Resident Pager: [phone] 07/10/2023 - 6:32 AM Please page the on-call pager after 6pm and on weekends * Chelsie Barbour RN - 07/09/2023 8:28 AM EDT Wound Ostomy [...] Next Visit: routine pouch change tomorrow Chelsie LEAVITT, RN, CWOCN * Saige Dang, - 07/09/2023 7:32 AM EDT Images from [...] loop small bowel obstruction s/p externalization of PSYCH NURSE shunt, EVD, exploratory laparotomy, bilateral ureteroileal reimplant, [...] Hct MCV RDW Plt PT aPTT INR 07/09/23435 7.7 2.40 7.2 21.3 89 17.6 [...] loop small bowel obstruction s/p externalization of PSYCH NURSE shunt, EVD, exploratory laparotomy, bilateral ureteroileal reimplant, uretroenterostomy, RONALD, bowel resection on 06/26 Diagnosis: - Small bowel obstruction with bowel ischemia - Iatrogenic injury to bilateral ureters with ureteral reimplantation - PSYCH NURSE shunt contamination - Externalization of PSYCH NURSE shunt PMHx: - HTN - Type 1 DM (on Insulin pump) - Asthma - 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) - Bladder cancer s/p cystectomy and ileal conduit in 2021 Plan Neurologic : -Fungal meningitis s/p VPS in the past on anti-fungals outpatient -S/p PSYCH NURSE shunt externalization by NSY on 06/26 -NSGY primary -Okay for RNF, q4h NC - Analgesia: PRN Tylenol & Oxycodone & Robaxin - NSGY following: EVD clamped until Sunday, planned for OR removal Sunday (07/09) Posaconazole 300mg PO daily for antifungal ppx - ID consulted for duration, 1 year possibly lifelong duration Respiratory Asthma history - Respiratory Filler Spreader Protocol - Bronchopulmonary Hygiene - Incentive Spirometer [...] well. To OR tomorrow for removal of PSYCH NURSE shunt No critical care needs * Isaías Hardin MD - 07/09/2023 6:42 AM EDT Images from the original note were not included. [facility] NEUROSURGERY DAILY PROGRESS NOTE Overnight Events [facility] completed, reviewed O: Vital sign ranges over [...] Hct MCV RDW Plt PT aPTT INR 07/09/23435 7.7 2.40 7.2 21.3 89 17.6 [...] 110 27 10 98 12 0.40 8.1 07/07/237 3.4 Comment: Note updated reference ranges. 07/07/237 [...] spinal levels and now s/p Certas RF PSYCH NURSE shunt (set at 7) with meningeal biopsy [...] -NSGY now primary, ok for RNF Q4 [place] -[facility] reviewed -OR plan for Tues 07/09 for [...] Hardin MD Neurological Surgery, PGY-2 Service Pager: [phone] 07/09/2023 - 6:42 AM * Richard Navarro PA-C - 07/08/2023 8:12 AM EDT Images from the original note were not included. [facility] NEUROSURGERY DAILY PROGRESS NOTE SUBJECTIVE: No acute [...] Min: 98 % Max: 100 % In: 1779 (24.6 mL/kg) [P.O.:1780] Out: 2048 (28.3 mL/kg) [...] Hct MCV RDW Plt PT aPTT INR 07/08/23 0442 6.6 2.48 7.8 21.8 88 18.0 581 07/07/23 0347 7.5 2.83 8.0 24.8 88 18.0 639 07/06/23 0131 9.4 3.17 8.9 27.9 88 18.9 671 07/05/23 1101 8.2 3.08 8.8 26.9 87 19.1 560 WBC/Diff None Basic Metabolic Panel Na K Cl CO2 Gap Glu BUN Cr Ca Mg PO4 07/08/23 0442 141 4.0 110 24 11 149 12 0.45 8.1 07/08/23 0442 3.6 Comment: Note updated reference ranges. 07/08/23 0442 1.4 Comment: Note updated reference ranges. 07/07/23 0347 143 3.9 110 27 10 98 12 0.40 8.1 07/07/23 0347 3.4 Comment: Note updated reference ranges. 07/07/23 0347 1.5 Comment: Note updated reference ranges. 07/06/23 0131 2.9 Comment: Note updated reference ranges. 07/06/23 [...] spinal levels and now s/p Certas RF PSYCH NURSE shunt (set at 7) with meningeal biopsy [...] now primary, ok for RNF Q4 [place] -[facility] Sunday morning, 07/08 AM Ordered -OR plan [...] at midnight) Richard Navarro PA-C Neurosurgery Pager: [phone] * Richard Navarro PA-C - 07/07/2023 9:11 AM EDT Images from the original note were not included. [facility] NEUROSURGERY DAILY PROGRESS NOTE SUBJECTIVE: No acute [...] Hct MCV RDW Plt PT aPTT INR 07/07/23346 7.5 2.83 8.0 24.8 88 18.0 639 07/06/23 0131 9.4 3.17 8.9 27.9 88 18.9 671 07/05/23 1101 8.2 3.08 8.8 26.9 87 19.1 560 07/05/23 0249 7.3 2.43 7.1 22.1 91 15.6 507 07/05/23 0206 7.3 2.43 7.0 22.1 91 15.6 487 WBC/Diff None Basic Metabolic Panel Na K Cl CO2 Gap Glu BUN Cr Ca Mg PO4 07/07/23346 143 3.9 110 27 10 98 12 0.40 8.1 07/07/237 3.4 Comment: Note updated reference ranges. 07/07/23346 1.5 Comment: Note updated reference ranges. 07/06/23130 2.9 Comment: Note updated reference ranges. 07/06/23130 1.7 Comment: Note updated reference ranges. 07/06/23130 141 4.3 108 26 11 141 10 0.49 8.4 07/05/23 0206 3.6 Comment: Note updated reference ranges. 07/05/23 0206 1.8 Comment: Note updated reference ranges. 07/05/23205 [...] spinal levels and now s/p Certas RF PSYCH NURSE shunt (set at 7) with meningeal biopsy showing fungal hyphae elements followed by ID OP at [facility] on posaconazole who presents to [facility] 06/24 with c/f possible SBO. NSGY consulted [...] now primary, ok for RNF Q4 [place] -[facility] Sunday morning, 07/08 AM Ordered -OR plan [...] to H Richard Navarro PA-C Neurosurgery Pager: [phone] * Liat Guzmán MD - 07/07/2023 8:29 [...] loop small bowel obstruction s/p externalization of PSYCH NURSE shunt, EVD, exploratory laparotomy, bilateral ureteroileal reimplant, [...] Gap Glu BUN Cr Ca Mg PO4 07/07/23346 143 3.9 110 27 10 98 [...] loop small bowel obstruction s/p externalization of PSYCH NURSE shunt, EVD, exploratory laparotomy, bilateral ureteroileal reimplant, uretroenterostomy, RONALD, bowel resection on 06/26 Diagnosis: - Small bowel obstruction with bowel ischemia - Iatrogenic injury to bilateral ureters with ureteral reimplantation - PSYCH NURSE shunt contamination - Externalization of PSYCH NURSE shunt PMHx: - HTN - Type 1 [...] year possibly lifelong duration Respiratory - Respiratory Filler Spreader Protocol - Bronchopulmonary Hygiene - Incentive Spirometer [...] status: Full Code DISPO: TICU Follow Up: S Urology Neurosurgery Medicine Fernando Willis MD Critical [...] (45.6 mL/kg) [Urine:3055 (1.8 mL/kg/hr); Drainage:245] Net: -2342 Weight: 72.3 kg Date 07/06/23 0700 - 07/07/23 0659 Shift 0556-5156 1805-3700 1822-8228 24 Hour Total INTAKE P.O. 258 248 7830 Shift Total(mL/kg) 720(10) 480(6.6) 1200(16.6) OUTPUT Urine(mL/kg/hr) [...] 115 23 7 115 10 0.39 7.0 07/04/2316 2.4 Comment: Note updated reference ranges. 07/04/23 [...] corrected result. Previous result on 07/04/2023 at [facility] EDT was 7.1 K/uL [C] -- Comment: Contaminated,please resubmit. This is a corrected result. Previous result on 07/04/2023 at [facility] EDT was 2.25 M/uL [C] -- Comment: Contaminated,please resubmit. This is a corrected result. Previous result on 07/04/2023 at [facility] EDT was 6.8 g/dL [C] -- Comment: Contaminated,please resubmit. This is a corrected result. Previous result on 07/04/2023 at [facility] EDT was 20.7 % [C] -- Comment: Contaminated,please resubmit. This is a corrected result. Previous result on 07/04/2023 at [facility] EDT was 92 fL [C] -- Comment: Contaminated,please resubmit. This is a corrected result. Previous result on 07/04/2023 at [facility] EDT was 15.5 % [C] -- Comment: Contaminated,please resubmit. This is a corrected result. Previous result on 07/04/2023 at [facility] EDT was 381 K/uL [C] [C] - [...] 2021 at OSH, T1DM, fungal meningitis s/p PSYCH NURSE shunt. Presented to the ED 06/25 and [...] Dr. Jessica Sandy MD Urology PGY-2 Pager [phone] * Jennifer Sandhu RN - 07/06/2023 12:58 PM EDT Images from the original note were not included. Wound Ostomy Continence (WOC) Nursing Reason for visit: Ostomy Care RN Assigned to Patient During Consult: Alvin Patton RN. Assessment/Findings: Patient alert and OOB to chair, accepting of ileal conduit pouch change which is due today. She's an experienced ostomate (urostomy created in 2021 @ [facility]), needing assistance with hands-on care post-operatively, while [...] dusted off. Pouching System Applied: Coloplast SenSura [place] (Medium, up to 1-5/16 ) Deep Convex MAXI Cut to Fit Drainable Pouch #[id number], Brava moldable ring (4.2 mm) #[id number], Coloplast Brava U-shaped elastic barrier strips #[id number], to gravity drainage Expected Wear Time: 3-4 [...] loop small bowel obstruction s/p externalization of PSYCH NURSE shunt, EVD, exploratory laparotomy, bilateral ureteroileal reimplant, [...] corrected result. Previous result on 07/04/2023 at [facility] EDT was 7.1 K/uL [C] -- Comment: Contaminated,please resubmit. This is a corrected result. Previous result on 07/04/2023 at [facility] EDT was 2.25 M/uL [C] -- Comment: Contaminated,please resubmit. This is a corrected result. Previous result on 07/04/2023 at [facility] EDT was 6.8 g/dL [C] -- Comment: Contaminated,please resubmit. This is a corrected result. Previous result on 07/04/2023 at [facility] EDT was 20.7 % [C] -- Comment: Contaminated,please resubmit. This is a corrected result. Previous result on 07/04/2023 at [facility] EDT was 92 fL [C] -- Comment: Contaminated,please resubmit. This is a corrected result. 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 [facility] NEUROS[facility]GERY DAILY PROGRESS NOTE SUBJECTIVE: No acute [...] 0206 3.6 Comment: Note updated reference ranges. 07/05/23205 1.8 Comment: Note updated reference ranges. 07/05/23205 143 4.2 111 28 8 68 11 0.40 7.8 07/04/23 0516 141 3.8 115 23 7 115 10 0.39 7.0 07/04/2316 2.4 Comment: Note updated reference ranges. 07/04/23515 [...] spinal levels and now s/p Certas RF PSYCH NURSE shunt (set at 7) with meningeal biopsy [...] -NSGY now primary, ok for RNF Q4 [place] -[facility] Sunday morning, 07/08 AM Ordered -OR plan [...] issues -SCDs, on LVX, will transition to SQH Post-rounds addendum: - Will require lifelong posaconazole - No contraindication for shunt explantation per discussion with ID staff Please call anytime with questions or concerns. Arian Rizo MD Neurosurgery, Resident Pager: [phone] 07/06/2023 - 8:35 AM Please page the on-call pager after 6pm and on weekends + Isaías Hardin MD Neurological Surgery, PGY-2 Service Pager: [phone] 07/06/2023 - 7:06 AM * Elidia Berkowitz [...] loop small bowel obstruction s/p externalization of PSYCH NURSE shunt, EVD, exploratory laparotomy, bilateral ureteroileal reimplant, [...] corrected result. Previous result on 07/04/2023 at [facility] EDT was 6.8 g/dL [C] -- Comment: Contaminated,please resubmit. This is a corrected result. Previous result on 07/04/2023 at 05 EDT was 20.7 % [C] -- Comment: Contaminated,please resubmit. This is a corrected result. Previous result on 07/04/2023 at [facility] EDT was 92 fL [C] -- Comment: Contaminated,please resubmit. This is a corrected result. Previous result on 07/04/2023 at 0538 EDT was 15.5 % [C] -- Comment: Contaminated,please resubmit. This is a corrected result. 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 [facility] DIVISION OF ACUTE CARE SURGERY GENERAL INFORMATION [...] transection to detorse bowel, ureteral reimplantation (uro), PSYCH NURSE shunt externalization (NSGY). Admittedto SICU post-operatively for EVD, neuro checks. 06/27: Improved symptomatically, no acute events 06/28: Passed gas. NGT removed. Started on clears. 06/29: Tolerated regular diet 06/30: JAIRO, minimal EVD output 07/01: JAIRO, EVD titrating 07/02: JAIRO 07/03: bowels functioning, EVDS clamped Events in last 24 hours: CT Head overnight with mild ventriculomegaly and stable PSYCH NURSE shunt 1 unit pRBC this morning for [...] Reclined in bed, in NAD HEENT: normocephalic, PSYCH NURSE shunt catheter externalized at level of clavicle, [...] Mild ventriculomegaly is stable. There is a PSYCH NURSE shunt catheter from the right frontal approach with its tip in the right lateral ventricle. No significant interval change. The skull, paranasal sinuses and tympanomastoid cavities are normal. IMPRESSION: Mild ventriculomegaly and PSYCH NURSE shunt are stable. DIAGNOSIS & PLAN Diagnoses: Bowel ischemia 2/2 small bowel closed loop obstruction s/p ex-lap, ileocecectomy, primary ileocolicanastomosis Bilateral ureteral transection to detorse bowel s/p ureteral reimplantation (urology) PSYCH NURSE shunt externalization (NSGY) Lactic acidosis (resolved) Assessment: 58F with hx bladder cancer s/p cystectomy and ileal conduit in 2020 ([facility]) admitted for si/sx concerning for small bowel [...] detorsing bowel s/p ureteral reimplantation by urology. PSYCH NURSE shunt externalization by NSGY for intraabdominal contamination. Patient remains in SICU for EVD manag ement, remains stable, now with return of bowel function. Tolerating diet, good pain control. Plan - PSYCH NURSE shunt and EVD management per neurosurgery. Recs [...] General Surgery Please page: EGS ED/Consult Pager [phone] for new patients EGS Floor pager [phone] for established patients Associated attestation - Kyrie [...] well No surgical restrictions Recommend transfer to [facility] primary for management of EVD as there [...] and Emergency General Surgery Department of Surgery [facility] [phone] * Isaías Hardin MD - 07/05/2023 6:41 AM EDT Images from the original note were not included. [facility] NEUROSURGERY DAILY PROGRESS NOTE SUBJECTIVE: Received 1u PRBC overnight for Hgb 7.0. CTH obtained this am to assess ventricular size- [...] corrected result. Previous result on 07/04/2023 at [facility] EDT was 7.1 K/uL [C] -- Comment: Contaminated,please resubmit. This is a corrected result. Previous result on 07/04/2023 at [facility] EDT was 2.25 M/uL [C] -- Comment: Contaminated,please resubmit. This is a corrected result. Previous result on 07/04/2023 at [facility] EDT was 6.8 g/dL [C] -- Comment: Contaminated,please resubmit. This is a corrected result. Previous result on 07/04/2023 at [facility] EDT was 20.7 % [C] -- Comment: Contaminated,please resubmit. This is a corrected result. Previous result on 07/04/2023 at 05 EDT was 92 fL [C] -- Comment: Contaminated,please resubmit. This is a corrected result. Previous result on 07/04/2023 at [facility] EDT was 15.5 % [C] -- Comment: [...] spinal levels and now s/p Certas RF PSYCH NURSE shunt (set at 7) with meningeal biopsy showing fungal hyphae elements followed [facility] ID OP [facility] on [facility]acon[facility] who presents to [facility] 06/24 with c/f possible SBO. NSGY consulted [...] Hardin MD Neurological Surgery, PGY-2 Service Pager: [phone] 07/05/2023 - 6:42 AM * Keri Goodwin RN - 07/05/2023 2:06 AM EDT /LADARIUS Bauman notified of critical Hemoglobin value of 7.0. /LADARIUS Bauman read back critical results. New orders received. * Eva Mcgarry MD - 07/04/2023 5:54 PM EDT Images from the original note were not included. [facility] DIVISION OF ACUTE CARE SURGERY GENERAL INFORMATION [...] transection to detorse bowel, ureteral reimplantation (uro), PSYCH NURSE shunt externalization (NSGY). Admittedto SICU post-operatively for [...] (38.1 mL/kg) [Urine:2360 (1.4 mL/kg/hr); Drainage:395] Net: -1617 Weight: 72.3 kg Physical Exam: General: resting comfortably in chair, NAD HEENT: normocephalic, PSYCH NURSE shunt catheter externalized at level of clavicle, [...] corrected result. Previous result on 07/04/2023 at [facility] EDT was 6.8 g/dL [C] -- Comment: Contaminated,please resubmit. This is a corrected result. Previous result on 07/04/2023 at [facility] EDT was 20.7 % [C] -- Comment: [...] to detorse bowel s/p ureteral reimplantation (urology) PSYCH NURSE shunt externalization (NSGY) Lactic acidosis (resolved) Assessment: 58F with hx bladder cancer s/p cystectomy and ileal conduit in 2020 ([facility]) now presenting with si/sx concerning for [...] detorsing bowel s/p ureteral reimplantation by urology. PSYCH NURSE shunt externalization by NSGY for intraabdominal contamination. Patient remains in SICU for EVD management, remains stable, now with return of bowel function. Tolerating diet, good pain control. Plan - PSYCH NURSE shunt and EVD management per neurosurgery. Awaiting final CSF culture results. Undergoing clamp trial. CTH tomorrow AM - Appreciate urology recs: maintain [...] General Surgery Please page: EGS ED/Consult Pager [phone] for new patients EGS Floor pager [phone] for established patients Associated attestation - Kyrie [...] and Emergency General Surgery Department of Surgery [facility] [phone] * Liat Guzmán MD - 07/04/2023 10:13 [...] loop small bowel obstruction s/p externalization of PSYCH NURSE shunt, EVD, exploratory laparotomy, bilateral ureteroileal reimplant, [...] corrected result. Previous result on 07/04/2023 at [facility] EDT was 7.1 K/uL [C] -- Comment: Contaminated,please resubmit. This is a corrected result. Previous result on 07/04/2023 at [facility] EDT was 2.25 M/uL [C] -- Comment: Contaminated,please resubmit. This is a corrected result. Previous result on 07/04/2023 at [facility] EDT was 6.8 g/dL [C] -- Comment: Contaminated,please resubmit. This is a corrected result. Previous result on 07/04/2023 at [facility] EDT was 20.7 % [C] -- Comment: Contaminated,please resubmit. This is a corrected result. Previous result on 07/04/2023 at [facility] EDT was 92 fL [C] -- Comment: Contaminated,please resubmit. This is a corrected result. Previous result on 07/04/2023 at [facility] EDT was 15.5 % [C] -- Comment: Contaminated,please resubmit. This is a corrected result. Previous result on 07/04/2023 at 0538 EDT was 381 K/uL [C] 07/03/23152 10.1 2.52 7.5 22.8 91 14.6 347 07/02/23301 11.1 2.82 7.9 25.2 89 15.3 304 [C] - Corrected Result Basic Metabolic Panel Na K Cl CO2 Gap Glu BUN Cr Ca Mg PO4 07/04/23 0516 141 3.8 115 23 7 115 10 0.39 7.0 07/04/23 0516 2.4 Comment: Note updated reference ranges. 07/04/23515 1.7 Comment: Note updated reference ranges. 07/03/23 1351 138 4.3 107 26 9 283 11 0.51 7.7 07/03/23152 3.1 Comment: Note updated reference ranges. 07/03/23152 1.7 Comment: Note updated reference ranges. 07/03/23152 142 3.6 111 27 8 89 13 0.46 7.6 07/02/232 3.6 Comment: Note updated reference ranges. 07/02/23301 [...] loop small bowel obstruction s/p externalization of PSYCH NURSE shunt, EVD, exploratory laparotomy, bilateral ureteroileal reimplant, uretroenterostomy, RONALD, bowel resection on 06/26 Diagnosis: - Small bowel obstruction with bowel ischemia - Iatrogenic injury to bilateral ureters with ureteral reimplantation - PSYCH NURSE shunt contamination PMHx: - HTN - Type [...] daily for antifungal ppx Respiratory - Respiratory Filler Spreader Protocol - Bronchopulmonary Hygiene - Incentive Spirometer [...] from the original note were not included. [facility] NEUROSURGERY DAILY PROGRESS NOTE SUBJECTIVE: No overnight [...] 07/03/23 0748 65 CSF Culture CSF culture 06/28/23 1508 No [...] spinal levels and now s/p Certas RF PSYCH NURSE shunt (set at 7) with meningeal biopsy showing fungal hyphae elements followed by ID OP at [facility] on posaconazole who presents to [facility] 06/24 with c/f possible SBO. NSGY consulted [...] Hardin MD Neurological Surgery, PGY-2 Service Pager: [phone] 07/04/2023 - 6:34 AM * Katiana Ross, RN - 07/04/2023 5:40 AM EDT LADARIUS [...] from the original note were not included. [facility] DIVISION OF ACUTE CARE SURGERY GENERAL INFORMATION [...] on RNF. Hospital Course/Procedures: 06/24: admitted to [facility] with concern for SBO possible closed loop 06/25: worsening abdominal pain. NGT placed. 06/26: leukocytosis. OR for ex-lap SBR for frankly necrotic bowel, unavoidable bilateral ureteral transection to detorse bowel, ureteral reimplantation (uro), PSYCH NURSE shunt externalization (NSGY). Admittedto SICU post-operatively for [...] resting comfortably in bed, NAD HEENT: normocephalic, PSYCH NURSE shunt catheter externalized at level of clavicle, [...] to detorse bowel s/p ureteral reimplantation (urology) PSYCH NURSE shunt externalization (NSGY) Lactic acidosis (resolved) Assessment: 58F with hx bladder cancer s/p cystectomy and ileal conduit in 2020 ([facility]) now presenting with si/sx concerning for [...] detorsing bowel s/p ureteral reimplantation by urology. PSYCH NURSE shunt externalization by NSGY for intraabdominal contamination. Patient remains in SICU for EVD management, remains stable, now with return of bowel function. Tolerating diet, good pain control. Plan - PSYCH NURSE shunt and EVD management per neurosurgery. Awaiting [...] General Surgery Please page: EGS ED/Consult Pager [phone] for new patients EGS Floor pager [phone] for established patients Associated attestation - Kyrie [...] and Emergency General Surgery Department of Surgery [facility] [phone] * Chelsie Barbour RN - 07/03/2023 11:10 AM EDT Wound Ostomy Continence (WOC) Nursing Consult Reason for visit: Ostomy Care RN Assigned to Patient During Consult: Kimberly Traylor RN. Assessment/Findings: Patient seen in the SICU, resting [...] Convex MAXI Cut to Fit Urostomy Pouch #[id number] with Brava moldable ring (4.2 mm) #[id number] and Brava U-shaped elastic barrier strips #[id number] Expected Wear Time: 3-4 days Education Provided: [...] loop small bowel obstruction s/p externalization of PSYCH NURSE shunt, EVD, exploratory laparotomy, bilateral ureteroileal reimplant, [...] loop small bowel obstruction s/p externalization of PSYCH NURSE shunt, EVD, exploratory laparotomy, bilateral ureteroileal reimplant, uretroenterostomy, RONALD, bowel resection on 06/26 Diagnosis: - Small bowel obstruction with bowel ischemia - Iatrogenic injury to bilateral ureters with ureteral reimplantation - PSYCH NURSE shunt contamination PMHx: - HTN - Type [...] daily for antifungal ppx Respiratory - Respiratory Filler Spreader Protocol - Bronchopulmonary Hygiene - Incentive Spirometer [...] River Guzmán MD MPH ICU Attending * MarcelleJuly,N-SUPERVISOR NET MAKING - 07/03/2023 7:05 AM EDT Images from the original note were not included. [facility] NEUROSURGERY DAILY PROGRESS NOTE SUBJECTIVE: Valve setting [...] spinal levels and now s/p Certas RF PSYCH NURSE shunt (set at 7) with meningeal biopsy showing fungal hyphae elements followed by ID OP at [facility] on posaconazole who presents to [facility] 06/24 with c/f possible SBO. NSGY consulted [...] Culture NGTD. -NSGY to follow Kacie LEAVITT, BACK UP SCAN COORDINATOR-SUPERVISOR NET MAKING Neurosurgery [phone] * Val Lopez MD - 07/02/2023 6:14 [...] Date 07/02/23 0700 - 07/03/23 0659 Shift [id number] 9958-9813 1246-1329 24 Hour Total INTAKE Shift Total(mL/kg) OUTPUT [...] hours) Glucose 07/02/23 1204 116 Comment: Notified RN YESI LOPEZ
07/02/23 0903 75 07/01/23 2257 177 07/01/23 [...] 2021 at OSH, T1DM, fungal meningitis s/p PSYCH NURSE shunt. Presented to the ED 06/25 and [...] Yeimy Lopez MD Urology PGY-5 Team Pager [phone] * Chelsie Barbour, RN - 07/02/2023 11:16 AM EDT Wound Ostomy Continence (WOC) Nursing Consult Reason for visit: Ostomy appliance seal check RN Assigned to Patient During Consult: Kimberly Traylor RN. Assessment/Findings: Pouch seal assessed and found to [...] from the original note were not included. [facility] OF ACUTE CARE SURGERY GENERAL INFORMATION EMERGENCY [...] transection to detorse bowel, ureteral reimplantation (uro), PSYCH NURSE shunt externalization (NSGY). Admittedto SICU post-operatively for [...] eaten breakfast tray at bedside HEENT: normocephalic, PSYCH NURSE shunt catheter externalized at level of clavicle, [...] 07/02/23301 1.8 Comment: Note updated reference ranges. 07/02/23 [...] to detorse bowel s/p ureteral reimplantation (urology) PSYCH NURSE shunt externalization (NSGY) Lactic acidosis (resolved) Assessment: 58F with hx bladder cancer s/p cystectomy and ileal conduit in 2020 ([facility]) now presenting with si/sx concerning for [...] detorsing bowel s/p ureteral reimplantation by urology. PSYCH NURSE shunt externalization by NSGY for intraabdominal contamination. Patient remains in SICU for EVD management, remains stable, now with return of bowel function. Tolerating diet, good pain control. Plan - PSYCH NURSE shunt and EVD management per neurosurgery. Awaiting [...] General Surgery Please page: EGS ED/Consult Pager [phone] for new patients EGS Floor pager [phone] for established patients Associated attestation - Kyrie [...] and Emergency General Surgery Department of Surgery [facility] [phone] * Liat Guzmán MD - 07/02/2023 8:10 AM EDT Images from the original note were not included. GENERAL INFORMATION TRAUMA ICU - STAFF NOTE Patient seen and examined on 07/02/2023 Patient Name: Chikis Tobar Admission Date: 06/25/2023 INTERVAL HISTORY/EVENTS Background: Chikis Tobar is a 58 year old female presenting to SICU POD #0 s/p externalization of PSYCH NURSE shunt,EVD, exploratory laparotomy, bilateral ureteroileal reimplant, uretroenterostomy, RONALD, bowel resection. Chikis Tobar is a 58 year old female with PMH of HTN, DM1 with DKA, Asthma, fungal meningitis and Bladder cancer s/p Cystectomy and ileal conduit in 2021. She presented on 06/24 with a small bowelobstruction and admitted to [facility]. Patient had elevated lactate on presentation [...] reimplantation into ileal conduit. Given contamination of PSYCH NURSE shunt, neurosurgery was also consulted intraoperatively for externalization. Patient arrives to ICU in stable condition, breathing spontaneously. Requires EVD monitoring. High risk for clinical deterioration. Hospital Course: 06/24: admitted to [facility] for SBO 12: abdominal pain improved 3:13: N.G tube in place, pain controlled 314:post op day 1, EVD externalization, exlap and SBO with IC anastamosis and recon of urostomy 15: passing gas, nasograstric tube out 06/29: Tolerated [...] 11.1 2.82 7.9 25.2 89 15.3 304 07/01/23107 11.4 2.70 8.0 24.2 90 15.4 [...] 07/01/23107 3.1 Comment: Note updated reference ranges. 03/17/24 0108 1.9 Comment: Note updated reference ranges. [...] of DKA, Asthma, hx of hydrocephalus with PSYCH NURSE shunt complicated by fungal meningitis and urothelial carcinoma of the bladder s/p radical cystectomy and ileal conduit (Apr 2021). [facility] with signs and symptomsconsistent with SBO. Pt was taken to the operatives suite on 06/26 for exploratory laparotomy, bowelresection, ileal conduit revision, and externalization of PSYCH NURSE shunt. Diagnosis: Small bowel obstruction Bowel ischemia Hydrocephalus with PSYCH NURSE shunt Type 1 Diabetes Iatrogenic injury to [...] PO daily for antifungal ppx Respiratory Respiratory Filler Spreader Protocol Bronchopulmonary Hygiene Incentive Spirometer No acute [...] from the original note were not included. [facility] NEUROSURGERY DAILY PROGRESS NOTE SUBJECTIVE: NAEO. EVD [...] spinal levels and now s/p Certas RF PSYCH NURSE shunt (set at 7) with meningeal biopsy showing fungal hyphae elements followed by ID OP at [facility] on posaconazole who presents to [facility] 06/24 with c/f possible SBO. NSGY consulted [...] Hardin MD Neurological Surgery, PGY-2 Service Pager: [phone] 07/02/2023 - 6:43 AM * Jory Jaeger MD - 07/01/2023 10:42 AM EDT Images from the original note were not included. GENERAL INFORMATION TRAUMA ICU - STAFF NOTE Patient seen and examined on 07/01/2023 Patient Name: Chikis Tobar Admission Date: 06/25/2023 INTERVAL HISTORY/EVENTS Background: Chikis Tobar is a 58 year old female presenting to SICU POD #0 s/p externalization of PSYCH NURSE shunt,EVD, exploratory laparotomy, bilateral ureteroileal reimplant, uretroenterostomy, RONALD, bowel resection. Chikis Tobar is a 58 year old female with PMH of HTN, DM1 with DKA, Asthma, fungal meningitis and Bladder cancer s/p Cystectomy and ileal conduit in 2021. She presented on 06/24 with a small bowelobstruction and admitted to [facility]. Patient had elevated lactate on presentation [...] reimplantation into ileal conduit. Given contamination of PSYCH NURSE shunt, neurosurgery was also consulted intraoperatively for externalization. Patient arrives to ICU in stable condition, breathing spontaneously. Requires EVD monitoring. High risk for clinical deterioration. Hospital Course: 06/24: admitted to EGS for SBO 312: abdominal pain improved 3:13: N.G tube in place, pain controlled 14:post op day 1, EVD externalization, exlap and SBO with IC anastamosis and recon of urostomy 315: passing gas, nasograstric tube out 06/29: Tolerated [...] 106 31 10 136 14 0.44 8.1 06/30/23543 151 3.1 112 30 12 128 15 0.44 7.8 06/30/23543 2.4 Comment: Note updated reference ranges. 06/30/2344 1.7 Comment: Note updated reference ranges. 06/29/23 1304 153 5.8 116 27 16 309 24 0.59 8.0 06/29/23 035 2.3 Comment: Note updated reference ranges. 06/29/23 0357 1.9 Comment: Note updated reference ranges. 06/29/23356 153 3.5 120 25 12 247 30 0.70 8.4 Arterial Blood Gases None IMAGING RESULTS (PERSONALLY REVIEWED) ASSESSMENT & PLAN Chikis Tobar is a 58 year old female with PMH of HTN, DM1 with hx of DKA, Asthma, hx of hydrocephalus with PSYCH NURSE shunt complicated by fungal meningitis and urothelial carcinoma of the bladder s/p radical cystectomy and ileal conduit (Apr 2021). She presented to [facility] with signs and symptomsconsistent with SBO. Pt was taken to the operatives suite on 06/26 for exploratory laparotomy, bowelresection, ileal conduit revision, and externalization of PSYCH NURSE shunt. Diagnosis: Small bowel obstruction Bowel ischemia Hydrocephalus with PSYCH NURSE shunt Type 1 Diabetes Iatrogenic injury to [...] PO daily for antifungal ppx Respiratory Respiratory Filler Spreader Protocol Bronchopulmonary Hygiene Incentive Spirometer No acute [...] and Emergency General Surgery Department of Surgery [facility] [phone] * Eva Mcgarry MD - 07/01/2023 10:30 AM EDT Images from the original note were not included. [facility] DIVISION OF ACUTE CARE SURGERY GENERAL INFORMATION [...] transection to detorse bowel, ureteral reimplantation (uro), PSYCH NURSE shunt externalization (NSGY). Admittedto SICU post-operatively for [...] (15.8 mL/kg) [P.O.:790; I.V.:350 (0.2 mL/kg/hr)] Out: 191 (26.4 mL/kg) [Urine:1600 (0.9 mL/kg/hr); Drainage:290] Net: -771 Weight: 72.3 kg Physical Exam: General: resting bed comfortably, NAD HEENT: normocephalic, PSYCH NURSE shunt catheter externalized at level of clavicle, [...] to detorse bowel s/p ureteral reimplantation (urology) PSYCH NURSE shunt externalization (NSGY) Lactic acidosis (resolved) Assessment: 58F with hx bladder cancer s/p cystectomy and ileal conduit in 2020 ([facility]) now presenting with si/sx concerning for [...] detorsing bowel s/p ureteral reimplantation by urology. PSYCH NURSE shunt externalization by NSGY for intraabdominal contamination. Patient remains in SICU for EVD management, remains stable, now with return of bowel function. Plan - PSYCH NURSE shunt and EVD management per neurosurgery. Awaiting [...] PGY1 Emergency General Surgery Team Consult pager: [phone] Floor pager: [phone] * Isaías Hardin MD - 07/01/2023 6:44 AM EDT Images from the original note were not included. [facility] NEUROSURGERY DAILY PROGRESS NOTE SUBJECTIVE: NAEO. EVD [...] spinal levels and now s/p Certas RF PSYCH NURSE shunt (set at 7) with meningeal biopsy showing fungal hyphae elements followed by ID OP at [facility] on posaconazole who presents to [facility] 06/24 with c/f possible SBO. NSGY consulted [...] Hardin MD Neurological Surgery, PGY-2 Service Pager: [phone] 07/01/2023 - 6:44 AM * Jory Jaeger MD - 06/30/2023 9:39 AM EDT Images from the original note were not included. GENERAL INFORMATION TRAUMA ICU - STAFF NOTE Patient seen and examined on 06/30/2023 Patient Name: Chikis Tobar Admission Date: 06/25/2023 INTERVAL HISTORY/EVENTS Background: Chikis Tobar is a 58 year old female presenting to SICU POD #0 s/p externalization of PSYCH NURSE shunt,EVD, exploratory laparotomy, bilateral ureteroileal reimplant, uretroenterostomy, RONALD, bowel resection. Chikis Tobar is a 58 year old female with PMH of HTN, DM1 with DKA, Asthma, fungal meningitis and Bladder cancer s/p Cystectomy and ileal conduit in 2021. She presented on 06/24 with a small bowelobstruction and admitted to [facility]. Patient had elevated lactate on presentation [...] reimplantation into ileal conduit. Given contamination of PSYCH NURSE shunt, neurosurgery was also consulted intraoperatively for externalization. Patient arrives to ICU in stable condition, breathing spontaneously. Requires EVD monitoring. High risk for clinical deterioration. Hospital Course: 06/24: admitted to [facility] for SBO 06/25: abdominal pain [...] No focal motor deficits. GCS of 15. PSYCH NURSE shunt externalized over right clavicle, clear CSF [...] Hct MCV RDW Plt PT aPTT INR 06/30/2344 10.3 2.71 8.1 24.4 90 16.3 150 [...] Gap Glu BUN Cr Ca Mg PO4 06/30/2344 151 3.1 112 30 12 128 15 0.44 7.8 06/30/23 0544 2.4 Comment: Note updated reference ranges. 06/30/23543 1.7 Comment: Note updated reference ranges. 06/29/23 1304 153 5.8 116 27 16 309 24 0.59 8.0 06/29/237 2.3 Comment: Note updated reference ranges. 06/29/23356 1.9 Comment: Note updated reference ranges. 03/15/24 0357 153 3.5 120 25 12 247 [...] of DKA, Asthma, hx of hydrocephalus with PSYCH NURSE shunt complicated by fungal meningitis and urothelial carcinoma of the bladder s/p radical cystectomy and ileal conduit (Apr 2021). She [facility] with signs and symptomsconsistent with SBO. Pt was taken to the operatives suite on 06/26 for exploratory laparotomy, bowelresection, ileal conduit revision, and externalization of PSYCH NURSE shunt. Diagnosis: Small bowel obstruction Bowel ischemia Hydrocephalus with PSYCH NURSE shunt Type 1 Diabetes Iatrogenic injury to [...] PO daily for antifungal ppx Respiratory Respiratory Filler Spreader Protocol Bronchopulmonary Hygiene Incentive Spirometer No acute [...] and Emergency General Surgery Department of Surgery [facility] [phone] * Karsten Reza MD - 06/30/2023 9:14 AM EDT Images from the original note were not included. [facility] DIVISION OF ACUTE CARE SURGERY GENERAL INFORMATION [...] transection to detorse bowel, ureteral reimplantation (uro), PSYCH NURSE shunt externalization (NSGY). Admittedto SICU post-operatively for [...] comfortably, no acute distress HEENT: normocephalic, atraumatic, PSYCH NURSE shunt catheter externalized at level of clavicle, [...] to detorse bowel s/p ureteral reimplantation (urology) PSYCH NURSE shunt externalization (NSGY) Lactic acidosis (resolved) Assessment: 58F with hx bladder cancer s/p cystectomy and ileal conduit in 2020 ([facility]) now presenting with si/sx concerning for [...] detorsing bowel s/p ureteral reimplantation by urology. PSYCH NURSE shunt externalization by NSGY for intraabdominal contamination. Patient remains in SICU for EVD management, remains stable, now with return of bowel function. Plan - PSYCH NURSE shunt and EVD management per neurosurgery. Awaiting CSF culture results. - Appreciate urology recs: maintain TOD drain, monitor urostomy outputs. - Regular diet - 4d broad spectrum abx for necrotic bowel (Zosyn, end 06/30) - Remainder per SICU Plan of care discussed with attending Surgeon, Dr. Libia Ohara MD PGY-4 Surgery Acute Care Surgery Chief Resident Department of Surgery [facility] [phone] ACS Consults [phone] ACS Floor Patients EGS/TRAUMA/ICU STAFF NOTE: I [...] Surgery Surgical Critical Care Trauma Surgery Pager: [phone] * Val Lopez MD - 06/30/2023 8:53 [...] Date 06/30/23 0700 - 07/01/23 0659 Shift [id number] 9626-3842 8831-5663 24 Hour Total INTAKE I.V.(mL/kg/hr) 100 100 [...] Glu BUN Cr Ca Mg PO4 06/30/23 05 151 3.1 112 30 12 128 15 0.44 7.8 06/30/23 0544 2.4 Comment: Note updated reference ranges. 06/30/23543 1.7 Comment: Note updated reference ranges. 06/29/23 1304 153 5.8 116 27 16 309 24 0.59 8.0 06/29/237 2.3 Comment: Note updated reference ranges. 06/29/23356 1.9 Comment: Note updated reference ranges. 06/29/23356 153 3.5 120 25 12 247 30 0.70 8.4 06/28/233 2.6 Comment: Note updated reference ranges. 06/28/23242 2.5 Comment: Note updated reference ranges. 03/14/24 0243 149 4.0 118 19 16 240 40 [...] 2021 at OSH, T1DM, fungal meningitis s/p PSYCH NURSE shunt. Presented to the ED 06/25 and [...] Yeimy Lopez MD Urology PGY-5 Team Pager [phone] * Isaías Hardin MD - 06/30/2023 7:06 AM EDT Images from the original note were not included. [facility] NEUROSURGERY DAILY PROGRESS NOTE SUBJECTIVE: NAEO. EVD [...] spinal levels and now s/p Certas RF PSYCH NURSE shunt (set at 7) with meningeal biopsy showing fungal hyphae elements followed by ID OP at [facility] on posaconazole who presents to [facility] 06/24 with c/f possible SBO. NSGY consulted [...] Hardin MD Neurological Surgery, PGY-2 Service Pager: [phone] 06/30/2023 - 7:07 AM * Bobbi Meléndez MD - 06/29/2023 3:53 PM EDT Images from the original note were not included. GENERAL INFORMATION SURGICAL ICU - STAFF NOTE Patient seen and examined on 06/29/2023 Patient Name: Chikis Tobar Admission Date: 06/25/2023 INTERVAL HISTORY/EVENTS Background: Chikis Tobar is a 58 year old female presenting to SICU POD #0 s/p externalization of PSYCH NURSE shunt,EVD, exploratory laparotomy, bilateral ureteroileal reimplant, uretroenterostomy, RONALD, bowel resection. Chikis Tobar is a 58 year old female with PMH of HTN, DM1 with DKA, Asthma, fungal meningitis and Bladder cancer s/p Cystectomy and ileal conduit in 2021. She presented on 06/24 with a small bowelobstruction and admitted to [facility]. Patient had elevated lactate on presentation [...] reimplantation into ileal conduit. Given contamination of PSYCH NURSE shunt, neurosurgery was also consulted intraoperatively for externalization. Patient arrives to ICU in stable condition, breathing spontaneously. Requires EVD monitoring. High risk for clinical deterioration. Hospital Course: 06/24: admitted to [facility] for SBO 06/25: abdominal pain improved 3:13: N.G tube in place, pain controlled 14:post op day 1, EVD externalization, exlap and [...] 116 27 16 309 24 0.59 8.0 06/29/23356 2.3 Comment: Note updated reference ranges. 06/29/23356 [...] of DKA, Asthma, hx of hydrocephalus with PSYCH NURSE shunt complicated by fungal meningitis and urothelial carcinoma of the bladder s/p radical cystectomy and ileal conduit (Apr 2021). She presented [facility] with signs and symptomsconsistent with SBO. Pt was taken to the operatives suite on 06/26 for exploratory laparotomy, bowelresection, ileal conduit revision, and externalization of PSYCH NURSE shunt. Diagnosis: Small bowel obstruction Bowel ischemia Hydrocephalus with PSYCH NURSE shunt Type 1 Diabetes Ureteral reimplantation, ileal [...] - posaconazole for antifungal ppx Respiratory Respiratory Filler Spreader Protocol Bronchopulmonary Hygiene Incentive Spirometer No acute [...] Scant;Serosanguineous Dressing Dressing changed;Wound cleansed;ABD pad Closure [place] Type of Stoma: ileal conduit Location: RLQ [...] Convex MAXI Cut to Fit Urostomy Pouch #[id number] with Brava moldable ring (4.2 mm) #[id number] and Brava U-shaped elastic barrier strips #[id number] Expected Wear Time: 3-4 days Education Provided: [...] Date 06/29/23 0700 - 06/30/23 0659 Shift [id number] 3721-0062 1584-4981 24 Hour Total INTAKE Shift Total(mL/kg) OUTPUT [...] 2.6 Comment: Note updated reference ranges. 06/27/23 004 145 4.2 114 20 15 54 44 1.70 8.0 06/27/23 0049 3.6 Comment: Note updated reference ranges. CBC/PT/INR WBC RBC Hgb Hct MCV RDW Plt PT aPTT INR 06/29/23 0357 10.6 2.97 9.0 26.5 89 16.4 149 06/28/23 0243 11.9 2.81 8.2 24.9 89 16.7 137 06/27/23 205 1.10 06/27/232054 10.9 2.84 8.7 25.9 91 [...] 2021 at OSH, T1DM, fungal meningitis s/p PSYCH NURSE shunt. Presented to the ED 06/25 and [...] Yeimy Lopez MD Urology PGY-5 Team Pager [phone] * Isaías Hardin MD - 06/29/2023 6:43 AM EDT Images from the original note were not included. [facility] NEUROSURGERY DAILY PROGRESS NOTE SUBJECTIVE: NAEO. EVD [...] Gap Glu BUN Cr Ca Mg PO4 06/29/23356 2.3 Comment: Note updated reference ranges. 06/29/23356 [...] spinal levels and now s/p Certas RF PSYCH NURSE shunt (set at 7) with meningeal biopsy [...] Hardin MD Neurological Surgery, PGY-2 Service Pager: [phone] 06/29/2023 - 6:43 AM * Tati Wilks MD - 06/28/2023 9:26 AM EDT Images from the original note were not included. GENERAL INFORMATION SURGICAL ICU - STAFF NOTE Patient seen and examined on 06/28/2023 Patient Name: Chikis Tobar Admission Date: 06/25/2023 INTERVAL HISTORY/EVENTS Background: Chikis Tobar is a 58 year old female presenting to SICU POD #0 s/p externalization of PSYCH NURSE shunt,EVD, exploratory laparotomy, bilateral ureteroileal reimplant, uretroenterostomy, RONALD, bowel resection. Chikis Tobar is a 58 year old female with PMH of HTN, DM1 with DKA, Asthma, fungal meningitis and Bladder cancer s/p Cystectomy and ileal conduit in 2021. She presented on 06/24 with a small bowelobstruction and admitted to [facility]. Patient had elevated lactate on presentation [...] reimplantation into ileal conduit. Given contamination of PSYCH NURSE shunt, neurosurgery was also consulted intraoperatively for externalization. Patient arrives to ICU in stable condition, breathing spontaneously. Requires EVD monitoring. High risk for clinical deterioration. Hospital Course: 06/24: admitted to [facility] for SBO 06/25: abdominal pain improved 24 [...] Hct MCV RDW Plt PT aPTT INR 06/28/23242 11.9 2.81 8.2 24.9 89 16.7 137 06/27/232054 1.10 06/27/232054 10.9 2.84 8.7 25.9 91 16.1 128 06/27/23 183 8.4 26.1 06/27/23 172 9.4 29.0 06/27/23 1525 10.0 30.8 06/27/23 143 9.7 30.0 Basic Metabolic Panel Na K [...] 06/27/232054 2.5 Comment: Note updated reference ranges. 06/27/231831 178 06/27/231831 149 4.2 118 06/27/23 1727 170 06/27/23 1727 148 4.2 117 06/27/23 1525 141 06/27/23 1525 148 4.1 114 06/27/23 1431 140 06/27/23 143 147 3.7 115 Arterial Blood Gases T [...] of DKA, Asthma, hx of hydrocephalus with PSYCH NURSE shunt complicated by fungal meningitis and urothelial carcinoma of the bladder s/p radical cystectomy and ileal conduit (Apr 2021). She presented to [facility] with signs and symptomsconsistent with SBO. Pt was taken to the operatives suite on 06/26 for exploratory laparotomy, bowelresection, ileal conduit revision, and externalization of ileal conduit. Diagnosis: Small bowel obstruction Bowel ischemia Hydrocephalus with PSYCH NURSE shunt Type 1 Diabetes Ureteral reimplantation, ileal [...] re-internalization of shunt vs removal Respiratory Respiratory Filler Spreader Protocol Bronchopulmonary Hygiene Incentive Spirometer No acute [...] and Emergency General Surgery Department of Surgery [facility] Pager [phone] * Val Lopez MD - 06/28/2023 8:54 [...] Date 06/28/23 0700 - 06/29/23 0659 Shift [id number] 0703-1124 7891-0889 24 Hour Total INTAKE I.V.(mL/kg/hr) 100 100 [...] Gap Glu BUN Cr Ca Mg PO4 06/28/23 0243 2.6 Comment: Note updated reference ranges. 06/28/23 024 2.5 Comment: Note updated reference ranges. 06/28/23242 [...] 0055 1.4 Comment: Note updated reference ranges. 06/26/2354 140 5.4 110 23 12 191 49 2.16 7.9 06/25/23 1342 143 4.7 110 22 16 107 41 1.86 8.0 CBC/PT/INR WBC RBC Hgb Hct MCV RDW Plt PT aPTT INR 06/28/23242 11.9 2.81 8.2 24.9 89 16.7 [...] 2021 at OSH, T1DM, fungal meningitis s/p PSYCH NURSE shunt. Presented to the ED 06/25 and [...] Yeimy Lopez MD Urology PGY-5 Team Pager [phone] * Concepción Carter PA-C - 06/28/2023 6:36 AM EDT Images from the original note were not included. [facility] NEUROSURGERY DAILY PROGRESS NOTE SUBJECTIVE: POD 1 [...] Hct MCV RDW Plt PT aPTT INR 06/28/23242 11.9 2.81 8.2 24.9 89 16.7 137 06/27/232054 1.10 06/27/232054 10.9 2.84 8.7 25.9 91 16.1 128 06/27/23 1832 8.4 26.1 06/27/23 1727 9.4 29.0 06/27/23 1525 10.0 30.8 06/27/23 1431 9.7 30.0 06/27/23 0049 16.8 3.43 10.3 30.1 88 16.3 140 06/26/23 005 11.6 3.71 11.1 33.1 89 16.0 135 [...] 06/27/2348 3.6 Comment: Note updated reference ranges. 03/12/24 0055 4.2 Comment: Note updated reference ranges. [...] spinal levels and now s/p Certas RF PSYCH NURSE shunt (set at 7) with meningeal biopsy showing fungal hyphae elements followed by ID OP at [facility] on posaconazole who presents to [facility] 06/24 with c/f possible SBO. NSGY consulted [...] Hardin MD Neurological Surgery, PGY-2 Service Pager: [phone] 06/28/2023 - 6:37 AM ### Addendum 06/28/23 0915 ### Please obtain a CTH wo to assess ventricular size. Concepción Carter PA-C Neurosurgery Service Pager: [phone] 06/28/2023 - 9:12 AM * Juan Chambers MD - 06/27/2023 11:16 PM EDT Postoperative Check S/P ex lap, small bowel resection, ileocecectomy, ureteroenterostomy, externalization of PSYCH NURSE shunt at clavicle Subjective Patient evaluated at the bedside postoperatively. Doing well. Pain well controlled, endorses betterthan prior to surgery. Does not endorse flatus yet. Minimal bilious output in NGT cannister. No nausea or emesis. Objective Vitals Recorded in This Encounter 06/27/2023 2045 06/27/2023 2100 06/27/2023 2115 06/27/2023 2130 06/27/2023 [...] Chambers MD Surgery Resident Department of Surgery [facility] * Jenny Borden RN - [...] for the past day, sent here from [place] for bowel obstruction, hx of bladder cancer [...] pain. NGT placed. .... 12-14-2022 Care Everywhere: ..Jalyn was admitted from OSH after being found [...] left renal stones. Elevated creatinine. Neurological: Hydrocephalus. PSYCH NURSE shunt. 2022 Meningeal biopsy was notable for [...] 16.8 3.43 10.3 30.1 88 16.3 140 06/26/2354 11.6 3.71 11.1 33.1 89 16.0 135 [...] 114 20 15 54 44 1.70 8.0 06/27/239 3.6 Comment: Note updated reference ranges. 06/26/23 005 4.2 Comment: Note updated reference ranges. 06/26/2354 1.4 Comment: Note updated reference ranges. 03/12/24 0055 140 5.4 110 23 12 191 [...] 06/27/23 1000 New Bag at 06/27/23 1000 [Jun] insulin glargine (LANTUS SOLOSTAR/BASAGLAR KWIKPEN) 100 UNIT/ML [...] 06/27/23 0855 5 mg at 06/27/23 0855 [JUN Hold] HYDROmorphone (DILAUDID) 0.2 MG/ML injection 0.3 mg 0.3 mg Intravenous Push Q4H PRN 0.3 mg at 06/27/23 1209 heparin (porcine) 5000 UNIT/0.5ML injection 5,000 Units Subcutaneous Every 8 hours 5,000 Units at 06/27/23 0609 [JUN Hold] dextrose 10 % iv infusion 125 mL Intravenous PRN 999 mL/hr at 06/27/23 0851 125 mL at 06/27/23 0851 Or [JUN Hold] glucagon (GLUCAGEN) 1 MG injection 1 mg Subcutaneous PRN Or [JUN Hold] dextrose (GLUTOSE) 40 % oral gel 15 g of glucose Buccal PRN Or [MAR Hold] dextrose (GLUTOSE) 40 % oral gel 30 g of glucose Buccal PRN TESTS REVIEWED: CXRay: 06-26-2023: ...COMPARISON: Chest radiograph 06/25/2023 FINDINGS: Lines, tubes, and devices: Partial visualization of PSYCH NURSE shunt overlying the right chest. Lungs and [...] Borden RN - 06/27/2023 8:[address]LIP mcgarry notified of critical Glucose value of 61. Dr./LIP mcgarry read back critical results.New orders received. Hypoglycemia protocol initiated. ~0916 recheck blood glucose. 124 D5LR cont. Fluids ordered * Valorie Perez RN - 06/27/2023 1:40 AM EDT 0130 RN notified by Nurse [employer] Officer that patient blood glucose was 60. Nurse [employer] Officer double checked blood glucose and it was 59. 0133 RN administered Dextrose per orders and notified MD Juan Chambers. RN will recheck blood glucoseafter administration of Dextrose. 0150 /LADARIUS Chambers notified of critical Glucose value of 54. Dr./LIP Juan Jules read back critical results. New orders [...] Provider Called Report To Dr. Kearney. EGS. [id number], who is the RUP. The patient is transferring from ED, room # 36, to Trauma RNF 5E. room # 702-2. The patient was added to the Emergency General Surgery list. Kemi Keraney MD RUP = Receiving unit provider RNF = Regular nursing floor * Kemi Kearney [...] Dil 0.3 mg q4hr PRN Respiratory Respiratory Filler Spreader Protocol Bronchopulmonary Hygiene Incentive Spirometer No acute [...] EGS service Kemi Kearney MD Surgery Resident [facility] [phone] EGS Consults [phone] EGS Floor Patients * Blayne Ohara MD - 06/25/2023 12:21 PM EDT [facility] DIVISION OF ACUTE CARE SURGERY PLAN OF CARE UPDATE Name: Chikis Tobar 06/25/2023 12:21 PM Notified of increasing lactate. Patient awaiting transfer to F for continuity of care. Abdomen soft, mild tenderness, no distention, no peritonitis. Patient has only received 2 doses of dilaudid inED, improves pain 10 to 04/25. Patient only received 1L LR bolus, has been vomiting yesterday, suspect overall patient remains under resuscitated. - NPO - Will continue to monitor - Bolus additional liter of LR - Repeat Lactate in 1 hour - Continue transfer to [facility] Patient seen and plan of care discussed with attending Surgeon, Dr. Juan Ohara MD PGY-4 Surgery Acute Care Surgery Chief Resident Department of Surgery [facility] [phone] ACS Consults [phone] ACS Floor Patients documented in this encounterTHE UNIVERSITY OF VERMONT HEALTH NETWORKAffinnova Work Phone: [phone] Miscellaneous Notes* Telephone Encounter - Marlene Cordero PA-C - 07/04/2023 8:26 AM EDT Call to Chikis, Her shunt is currently externalized and has not had change in symptoms. I discussed the situation with Dr Oconnor who agrees with Jesse's plan. She will keep us updated and follow up as outpatient. Marlene Cordero PA-C documented in this encounterMercy Health [facility]03-14-2024 NotePhysical Therapy Note Attempted to see patient for re-evaluation, however patient to get PICC line. Will continue to follow. Cindi Perry, PT, DPT #[id number] Huntington [id number] NoteOCCUPATIONAL THERAPY Attempt to see patient for re-evaluation this date. Prior to mobilizing OOB, PICC team arrived for line placement. Will re-attempt to see patient at next appropriate opportunity. Cassidy Terrazas, OTR/LThe Henderson County Community HospitalXeros [id number] Hospital Discharge instructions* Discharge Instructions* Kelsey Victoria PA-C - 06/26/2023 5:28 PM EDT NEUROLOGICAL SURGERY DISCHARGE INSTRUCTIONS C O N F I D E N T I A L I N F O R M A T I O N Chikis Tobar [id number] The following is a brief overview of [...] Patient Active Problem List: Small bowel obstruction ([facility]) [K56.609] Physicians: Attending: General Surgery - Dr. [...] drugs. There is a risk of respiratory, OFFICE SUPPORT SPECIALIST depression and when medications are misused and [...] to be removed on follow-up appointment with ROUGH PLANER TENDER or PA (or on POD#14 in [...] -Please call the Dr. Figueroa's office T: [phone] to schedule follow up within 10-14 days [...] nabumetone, etodolac, etc.), or Vitamin E, or Kenner-3 fish oils until discussed at follow up appointment, as they can interfere with bleeding/clotting (and success of any bony fusion) - for any changes in neurological exam including, but not limited to: new or worsening seizures; changes in vision, speech, or swallowing; new weakness; loss of sensation; changes in memory; worsening balance; worsening headache; neck pain; bowel or bladder incontinence --> return to [facility] or go to your closest ER, and call your Neurosurgeon - You may call [phone] if you have questions or concerns after regular business hours and ask to be transferred to the neurosurgery resident on-call. - The two stents coming out of your stoma will be removed for you at your follow up appointment with Dr. Chambers (Urologic surgeon). Call [phone] option 1 during regular daytime business hours (8:00 am - 5:00 pm) and after 5:00 pm call [phone] and ask for the Urology resident with [...] primary care physician or establishing care at [facility] if you do not already have one. [...] not have a primary physician please call [phone] for guidance on finding a [facility] provider. If you have questions or concerns, if your condition worsens or you develop new symptoms please call the [employer] Line at [phone]. documented in this encounterTHE [employer] SYSTEM Work Phone: 1(946) 518-377803-12-2024 History of Present illness Narrative* Peterson Gonsalez MD - 06/26/2023 10:20 AM EDT Appointment cancelled, patient currently admitted to hospital. documented in this encounterMercy Health – The [facility]03-12-2024 Note06/25/238 Glucose reading Glucose Reading 201 mg/dl Comments Home device- see communication orderThe [facility] Community HospitalXeros [id number] Miscellaneous Notes* Telephone Encounter - Lexie Askew [...] and advise. Lexie Montgomery documented in this encounterMercy Health – The Jewish Hospital03-07-2024 Miscellaneous Notes* Addendum Note - Aashish Monge PA-C - 06/21/2023 4:23 PM ESTAddended by: AASHISH MONGE on: 06/21/2023 04:23 PM Modules accepted: Orders documented in this encounterMercy Health – The [facility]03-07-2024 History of Present illness Narrative* Aashish Monge [...] spent on this encounter documented in this encounterMercy Health – The Jewish Hospital03-06-2024 History of Present illness Narrative* Cinthia Noyola - 06/20/2023 9:00 AM EST POPULATION HEALTH NAVIGATION OUTREACH Action/I RP Patient Outreach: Spoke with patient to [...] 20, 2023 9:00 AM documented in this encounterMercy Health – The Jewish Hospital03-04-2024 History of Present illness Narrative* Carolyn Echevarria [...] PATIENT PRESENTS WITH AN IMPLANTABLE OR ATTACHED SUPERINTENDENT CEMETERY: No RADIOLOGY DEPARTMENT: General X-ray: Exam(s) Completed: Lower Extremity X- Ray(s): Knee, AP / LAT Left PERIPHERAL IV DATA: Not applicable SIGNED BY: RT Lisa(R) June 18, 2023 10:43 AM documented in this encounterMercy Health – The Jewish Hospital03-04-2024 History of Present illness Narrative* Marlena Anaya [...] PATIENT PRESENTS WITH AN IMPLANTABLE OR ATTACHED SUPERINTENDENT CEMETERY: Yes Other RADIOLOGY DEPARTMENT: CT; Exam(s) Completed: Chest and Urogram PERIPHERAL IV DATA: Site assessment: Clean,Dry and Intact, Site disposition Discontinued SIGNED BY: RT Lisa(R) June 18, 2023 11:14 AM documented in this encounterMercy Health – The [facility] Hospital02-12-2024 Evaluation note* Encounter Date Diagnosis Assessment Notes [...] if unable to control BS or hydrate [employer] Other 01-25-2024 History of Present illness Narrative* [...] was performed and she was transferred to [facility]. She was found to have DKA. A CT head showed hydrocephalus with MRI on May 29 showing multiple enhancement in the anterior sabra, medulla, and in the spine at the level of C7-T3 and L1-S2. Multiple taps were performed and were unsuccessful. A PSYCH NURSE shunt was placed and patient underwent a meningeal biopsy which pathology showed hyphae elements. PCR sentover multiple tissue samples and CSF next gen sequencing was negative and was negative. She was started on posaconazole to cover molds. While taylro can present with pseudohyphae, it did not grow, which concerns for other molds rather than yeast CT 08/16/2022 Relative normalization of ventricular caliber with resolved asymmetric slit like appearance of the right lateral ventricle with shunt in place since 08/16/2022. Small subdural hygromas over the frontal lobes (8 mm). LFTs 08/16 normal . PSYCH NURSE shunt was adjusted from 4 to 7 Posaconazole level 2.4 on 08/21/22 Developed a facial rash in September 2022, mainly the malar area, a few spots on the forehead. 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 She was seeing wound care at [facility] for her sacral area ulcer. Rx'd [...] and ambulatory, using a cane PRN. No PSYCH NURSE shunt issues. Balance has improved but still [...] knee gave out. Went to ED in [place], told she needed surgery. In the ED she was given crutches but pt said there was no way she could get around on crutches (since the left leg had been the stronger leg), and wanted a walker. [place]went [place] and after reviewing outside X rays told [...] of her as a child.. Has seen per diem interpreter in past 4 weeks, normal exam. Continues [...] (BAQSIMI) 3 mg/actuation nasal spray Use 1 [place] in the nose as needed. acetaminophen (TYLENOL) [...] papules c/w rosacea, improved H: no lesions. PSYCH NURSE shunt palpable along its track and nontender [...] BICEPS TRICEPS DELTS Wrist Ext Wrist Flex Artist Mannequin Coloring R 5/5 5/5 5/5 5/5 5/5 5/5 [...] culture negative 07/02 CSF culture 07/02 NG Pruden fungal PCR PCR from biopsy tissue both negative ([facility]) 06/28 CSF (labelled lumbar puncture but is from EVD): MNGS negative 06/27 CSF (labelled lumbar puncture but is from EVD): No growth, Crypto antigen negative 06/26 OR cultures Dural/subdural itradural thoracic lesion Tissue: gram stain negative. NGTD Wound culture: gram stain negative. NGTD AFB smear no organsims. Fungal: smear: no fungus seen Pruden bacterial, fungal and AFB PCRs: negative (entire [...] DKA - 05/29/22 MRI brain from [facility] with leptomeningeal enhancement, communicating hydrocephalus - 06/07/22 MRI spine with diffuse LMD throughout spinal cord and cauda equina with loculated CSF in anterior thecal sac at C7-T3 with posterior displacement of cord and cord compression. T4-9 intramedullary hyperintensity suggesting cord edema due to compression superiorly - Course complicated by unsuccessful LP attempts at [facility] then transferred to [facility] - s/p cisternal tap 06/16/22 with limited [...] with fungal hyphae confirmed on multiple sections. Pruden PCR and cultures all negative, including the tissue block in its entirety sent for universal fungal PCR and negative - CSF 06/28/22 negative on Next Gen sequencing - posaconazole started 06/29/22 - s/p PSYCH NURSE shunt on 07/10.and improving MS since then. - small subdural hygromas over frontal convexities on CT 08/16/22, shunt settings adjusted - facial rash in September 2022, mainly the malar area, a few spots on the forehead. Dx'd with rosacea by PCP and started on metronidazole gel, improved - sacral area ulcer, saw wound care at [facility]. Rx'd with medical honey gel and [...] 3. The downside of posaconazole is lower OFFICE SUPPORT SPECIALIST penetration than voriconazole, but voriconaole has no [...] the patient, review of multiple MRI scans, [id number] patient care, completing clinical documentation, obtaining and/or reviewing separately obtained history, performing a medically appropriate examination, counseling and educating the patient/family/caregiver, ordering medications, tests, or procedures, independently interpreting results (not separately reported), communicating results to the patient/family/caregiver, and care coordination (not separately reported) documented in this encounterMercy Health [facility]01-10-2024 Evaluation note* Encounter Date Diagnosis Assessment Notes [...] to achieve/maintain a normal BMI. Added Lisinopril [facility] Other [id number] History of Present illness Narrative* Jamie Mccarty [...] was performed and she was transferred to [facility]. She was found to have DKA. A CT head showed hydrocephalus with MRI on May 29 showing multiple enhancement in the anterior sabra, medulla, and in the spine at the level of C7-T3 and L1-S2. Multiple taps were performed and were unsuccessful. A PSYCH NURSE shunt was placed and patient underwent a [...] lobes (8 mm). LFTs 08/16 normal . PSYCH NURSE shunt was adjusted from 4 to 7 Posaconazole level 2.4 on 08/21/22 Developed a facial rash in September 2022, mainly the malar area, a few spots on the forehead. 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 She was seeing wound care at [facility] for her sacral area ulcer. Rx'd [...] and ambulatory, using a cane PRN. No PSYCH NURSE shunt issues. Balance has improved but still [...] concerned that she may have disrupted her PSYCH NURSE shunt. She had no specific pain over [...] she has had a spike in sugars but generally has been well controlled using her insulin pump. She will be seeing endocrinologylater this week. States that she has not had a hemoglobin A1c drawn and will do so today. She has had no vision problems. Goes to the per diem interpreter every 3 months and has an appointment [...] (BAQSIMI) 3 mg/actuation nasal spray Use 1 Calumet in the nose as needed. acetaminophen (TYLENOL) [...] papules c/w rosacea, improved H: no lesions. PSYCH NURSE shunt palpable along its track and nontender [...] BICEPS TRICEPS DELTS Wrist Ext Wrist Flex Artist Mannequin Coloring R 5/5 5/5 5/5 5/5 5/5 5/5 [...] culture negative 07/02 CSF culture 07/02 NG Pruden fungal PCR PCR from biopsy tissue both negative ([facility]) 06/28 CSF (labelled lumbar puncture but is from EVD): MNGS negative 06/27 CSF (labelled lumbar puncture but is from EVD): No growth, Crypto antigen negative 06/26 OR cultures Dural/subdural itradural thoracic lesion Tissue: gram stain negative. NGTD Wound culture: gram stain negative. NGTD AFB smear no organsims. Fungal: smear: no fungus seen Pruden bacterial, fungal and AFB PCRs: negative (entire [...] DKA - 05/29/22 MRI brain from [facility] with leptomeningeal enhancement, communicating hydrocephalus - 06/07/22 MRI spine with diffuse LMD throughout spinal cord and cauda equina with loculated CSF in anterior thecal sac at C7-T3 with posterior displacement of cord and cord compression. T4-9 intramedullary hyperintensity suggesting cord edema due to compression superiorly - Course complicated by unsuccessful LP attempts at [facility] then transferred to [facility] - s/p cisternal tap 06/16/22 with limited [...] with fungal hyphae confirmed on multiple sections. Pruden PCR and cultures all negative, including the tissue block in its entirety sent for universal fungal PCR and negative - CSF 06/28/22 negative on Next Gen sequencing - posaconazole started 06/29/22 - s/p PSYCH NURSE shunt on 07/10.and improving MS since then. - small subdural hygromas over frontal convexities on CT 08/16/22, shunt settings adjusted - facial rash in September 2022, mainly the malar area, a few spots on the forehead. Dx'd with rosacea by PCP and started on metronidazole gel, improved - sacral area ulcer, saw wound care at [facility]. Rx'd with medical honey gel and [...] which included preparing to see the patient, [id number] patient care, completing clinical documentation, obtaining and/or reviewing separately obtained history, performing a medically appropriate examination, counseling and educating the pat ient/family/caregiver, ordering medications, tests, or procedures, communicating with other HCPs (not separately reported), independently interpreting results (not separately reported), communicatingresults to the patient/family/caregiver, and care coordination (not separately reported) documented in this encounterMercy Health [facility] Jewish [facility]12-01-2023 History general Narrative - Reported* Type Description Date Medical History DM 1 Medical HistoryOBESITYMedical HistoryASTHMAMedical HistoryLeft Patella Fx 03/2023Surgical HistoryORIF R ANKLE [id number] HistoryRIGHT OOPHERECTOMY FOR CYSTSurgical HistoryT5 intradural bx and placement of EV Surgical HistoryVP shunt placement.2022Hospitalization HistoryFOR SURGERIES [facility] Other 11-17-2023 Evaluation note* Encounter Date Diagnosis [...] verbalized understanding and agreement with treatment plan. [facility] Other 10-05-2023 Evaluation note* Encounter Date Diagnosis [...] Microalbumin, Dilated eye exam and Foot exam Jan,Medicare annual wellness visit, subsequent (ICD-10 - Z00.00) [...] - H00.012)Warm compresses, gentle massage, begin antibiotics [facility] Other 10-02-2023 History of Present illness Narrative* [...] was performed and she was transferred to [facility]. She was found to have DKA. A CT head showed hydrocephalus with MRI on May 29 showing multiple enhancement in the anterior sabra, medulla, and in the spine at the level of C7-T3 and L1-S2. Multiple taps were performed and were unsuccessful. A PSYCH NURSE shunt was placed and patient underwent a [...] lobes (8 mm). LFTs 08/16 normal . PSYCH NURSE shunt was adjusted from 4 to 7 Posaconazole level 2.4 on 08/21/22 Developed a facial rash in September 2022, mainly the malar area, a few spots on the forehead. 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 She was seeing wound care at [facility] for her sacral area ulcer. Rx'd [...] had no falls. No problems with her PSYCH NURSE shunt, and no tenderness over the shunt [...] have been well controlled. She sees a cane piler locally for her type 1 diabetes MEDICATIONS: [...] (BAQSIMI) 3 mg/actuation nasal spray Use 1 Calumet in the nose as needed. acetaminophen (TYLENOL) [...] dilated vessels, c/w rosacea H: no lesions. PSYCH NURSE shunt palpable along its track and nontender [...] BICEPS TRICEPS DELTS Wrist Ext Wrist Flex Artist Mannequin Coloring R 5/5 5/5 5/5 5/5 5/5 5/5 L 5/5 5/5 5/5 5/5 5/5 5/5 LE Hip Flex Knee Flex Knee Extend Plantarflex Dorsiflex EHL R 5/5 5/5 5/5 5/5 5/5 5/5 L 5/5 5/5 5/5 5 5 5 Pronator drift: no pronator drift bilaterally Sensory: [...] Lymph 1.00 - 4.00 k/uL 0.88 (L) Glasscock% % 8.6 Abs Glasscock <0.87 k/uL 0.35 Eosin% % 1.0 Abs [...] 106 MICROBIOLOGY: 07/02 CSF culture 07/02 NG Pruden fungal PCR PCR from biopsy tissue are both negative ([facility]) 06/28 CSF (labelled lumbar puncture but is from EVD): MNGS negative 06/27 CSF (labelled lumbar puncture but is from EVD): No growth, Crypto antigen negative 06/26 OR cultures Dural/subdural itradural thoracic lesion Tissue: gram stain negative. NGTD Wound culture: gram stain negative. NGTD AFB smear no organsims. Fungal: smear: no fungus seen Pruden bacterial, fungal and AFB PCRs: negative (entire [...] DKA - 05/29/22 MRI brain from [facility] with leptomeningeal enhancement, communicating hydrocephalus - 06/07/22 MRI spine with diffuse LMD throughout spinal cord and cauda equina with loculated CSF in anterior thecal sac at C7-T3 with posterior displacement of cord and cord compression. T4-9 intramedullary hyperintensity suggesting cord edema due to compression superiorly - Course complicated by unsuccessful LP attempts at [facility] then transferred to [facility] - s/p cisternal tap 06/16/22 with limited [...] with fungal hyphae confirmed on multiple sections. Pruden PCR and cultures all negative, including the tissue block in its entirety sent for universal fungal PCR and negative - CSF 06/28/22 negative on Next Gen sequencing - posaconazole started 06/29/22 - s/p PSYCH NURSE shunt on 07/10.and improving MS since then. [...] MD January 15, 2023 documented in this encounterMercy Health [facility] Hospital09-27-2023 Miscellaneous Notes* Telephone Encounter - Zarina Norton RN - 01/10/2023 10:10 AM EDT Spoke with patient's medical supplier - [employer] ([phone]). They can only send 2 night time drainage bags per month due to patient's insurance coverage. Spoke with patient and relayed message to her. Offered options of this office will supply bags at her office visits if she needs them. Also aware that bags may be purchased on [employer]. documented in this encounterMercy Health – The Jewish Hospital09-26-2023 History of Present illness Narrative* Peterson Gonsalez MD - 01/09/2023 10:20 AM EDT [facility] ESTABLISHED PATIENT OFFICE [...] (7Fr x 24cm JJ) 12/16/[address] Mnotez and myself. 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 Seen 05/02/2022 where she reported continued weight loss (105 lbs down from 195 prior to surgery). Has seen a screener operator as well as PT. 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 Extensive work-up was performed, including multiple LPs, meningeal biopsy (positive for fungal hyphae), PSYCH NURSE shunt placement with clinical improvement with this [...] 01/09/2022 7.40 7.35 - 7.45 Final Specific [place], [place] Date Value Ref Range Status 06/12/2022 [...] (BAQSIMI) 3 mg/actuation nasal spray Use 1 Calumet in the nose as needed. acetaminophen (TYLENOL) [...] which included preparing to see the patient, [id number] patient care, completing clinical documentation, and obtaining [...] care. Peterson Gonsalez MD documented in this encounterMercy Health [facility] The Jewish Hospital09-11-2023 History of Present illness Narrative* Carolyn Echevarria, [...] 2022 TIME: 11:00 AM documented in this encounterMercy Health – The Jewish Hospital08-31-2023 History of Present illness Narrative* Marlene Cordero PA-C - 12/14/2022 2:00 PM EDT CC: PSYCH NURSE shunt f/u HPI: Mrs Chikis Tobar comes [...] seen for hospital follow up. Chikis underwent PSYCH NURSE shunt placement on 07/10/22 as inpatient. Follow [...] settin Marlene Cordero PA-C documented in this encounterMercy Health – The Jewish Hospital08-02-2023 History of Present illness Narrative* Ian Hanson, RT(R) - 11/15/2022 10:15 AM EDT Radiology [...] 15, 2022 10:26 AM documented in this encounterMercy Health – The Jewish Hospital07-05-2023 Instructions* Patient Instructions* Kim Lynch MD - 10/18/2022 10:45 AM EDT - Get blood work at your local [facility] lab , 1 hour before taking your posaconazole - See you in a few months documented in this encounterMercy Health – The Jewish Hospital07-05-2023 History of Present illness Narrative* Jamie Mccarty [...] was performed and she was transferred to [facility]. She was found to have DKA. A CT head showed hydrocephalus with MRI on May 29 showing multiple enhancement in the anterior sabra, medulla, and in the spine at the level of C7-T3 and L1-S2. Multiple taps were performed and were unsuccessful. A PSYCH NURSE shunt was placed and patient underwent a [...] (BAQSIMI) 3 mg/actuation nasal spray Use 1 Calumet in the nose as needed. acetaminophen (TYLENOL) [...] taps were performed and were unsuccessful. A PSYCH NURSE shunt was placed and patient underwent a meningeal biopsy which pathology showed hyphae elements. PCR sent over multiple tissue samples and CSF next gen sequencing was negative and was negative. She is statuspost PSYCH NURSE shunt placement. Started on Posaconazole for broad [...] MD October 18, 2022 documented in this encounterMercy Health – The Jewish Hospital06-08-2023 History of Present illness Narrative* Marlene Cordero PA-C - 09/21/2022 10:21 AM EDT CC: PSYCH NURSE shunt f/u HPI: Mrs Chikis Tobar comes [...] settin Marlene Cordero PA-C documented in this encounterMercy Health – The Jewish Hospital06-02-2023 Evaluation note* Encounter Date Diagnosis Assessment Notes [...] Z79.4) Sep,Ileostomy in place (ICD-10 - Z93.2) [facility] Other 06-01-2023 History of Present illness Narrative* [...] 14, 2022 3:00 PM documented in this encounterMercy Health – The Jewish Hospital05-31-2023 Progress note Author Marjorie Headley [facility] September 13, 2022 8:40amNote Date/TimeMay 2022 8:40amDras[place] [address] Wound Center Provider Note Signed Patient: Chikis Tobar MR#: [id number] : 1965 Acct:[id number] Age/Sex: 57 / F Copies to: Juliette Berumen,DO Marjorie Headley APRN~ HPI Date of Visit Date of Visit: Date of Service: 09/13/2022 Time of Service: 08:39 Narrative HPI: 08/08/22 Chikis is a 57 year old female presenting to [facility] wound care program for an initial [...] wound start?: May 2022 Mode of Arrival/ Air Brakes Inspector: Family Assistive Device Used Today: Walker Lives with:: Multiple Family Members Appetite Description: Within Normal Limits Who helps w/ dressing change?: Family Why Do You Need Help?: Can't Reach Ulcer Smoking Status: Never smoker [facility] Medical History (Updated 08/08/22 @ 13:43 by [...] Pressure Ulcer/Injury Staging: Stage 3 Bed Appearance: Blanca and Yellow Percent of Wound Bed Granulated/Red: 95 Percent of Devitalized: 5 Length (cm): 0.4 Width (cm): 0.3 Depth (cm): 0.1 CM Sq: 0.120 Surrounding Tissue Appearance: Blanca Surrounding Tissue Temp: Warm Drainage Amount: Scant [...] 12 Dictated By: Marjorie Headley APRN DD/ 8 Signed By: <Electronically signed by STEVEN Headley> 09/13/22839 [facility] Work Phone: 1(956) 740-775805-12-2023 Evaluation note* Encounter Date Diagnosis Assessment Notes Treatment Notes Treatment Clinical Notes August, Palpitation (ICD-10 - R00.2) [facility] Other 05-12-2023 History of Present illness Narrative* Marlene Cordero PA-C - 08/25/2022 9:11 AM EDT CC: PSYCH NURSE shunt f/u HPI: Mrs Chikis Tobar comes to clinic today for surgical f/u. Chikis was admitted from [facility] after being found unresponsive. CT brain showed hydrocephalus with MRI on February 13 showing multiple enhancement in the anterior sabra, [...] type: Certas Initial settin New settin Marlene Schwieterman PA-C documented in this encounterMercy Health – The Jewish Hospital05-10-2023 Progress note Author Marjorie Headley [facility] August 23, 2022 2:49pmNote Date/TimeMay 2022 2:49pmDras[place] [address] Wound Center Provider Note Signed Patient: Chikis Tobar MR#: [id number] : 1965 Acct:[id number] Age/Sex: 57 / F Copies to: Juliette Berumen,DO Marjorie Headley APRN~ HPI Date of Visit Date of Visit: Date of Service: 08/23/2022 Time of Service: 14:48 Narrative HPI: 08/08/22 Chikis is a 57 year old female presenting to [facility] wound care program for an initial [...] wound start?: May 2022 Mode of Arrival/ Air Brakes Inspector: Family Assistive Device Used Today: Walker Lives with:: Multiple Family Members Appetite Description: Within Normal Limits Who helps w/ dressing change?: Family Why Do You Need Help?: Can't Reach Ulcer Smoking Status: Never smoker [facility] Medical History (Updated 08/08/22 @ 13:43 by [...] Pressure Ulcer/Injury Staging: Stage 3 Bed Appearance: Blanca and Yellow Percent of Wound Bed Granulated/Red: 10 Percent of Devitalized: 90 Length (cm): 0.8 Width (cm): 0.8 Depth (cm): 0.1 CM Sq: 0.640 Surrounding Tissue Appearance: Blanca Surrounding Tissue Temp: Warm Drainage Amount: Moderate [...] 11 Dictated By: Marjorie Headley APRN DD/ 1448 Signed By: <Electronically signed by STEVEN Headley> 08/23/22 1449 [facility] Work Phone: [phone]) 182-467705-10-2023 Miscellaneous Notes* Telephone Encounter - Marlene Cordeor PA-C - 08/23/2022 10:00 AM EDT Call to Chikis to discuss hygroma on CT brain. She agreed to come for office visit on Sunday to reduce shunt setting tot 7. Marlene Cordero PA-C documented in this encounterMercy Health – The Jewish Hospital05-04-2023 Evaluation note* Encounter Date Diagnosis Assessment Notes Treatment Notes Treatment Clinical Notes August, Claustrophobia (ICD-10 - F40.240 ) [place] [employer] Other 05-04-2023 Miscellaneous Notes* Telephone Encounter - Ami Lopez - 08/17/2022 10:12 AM EDT Patient called requesting a sedative medication for her to get her MRI done, states because she is claustrophobic. The pharmacy listed is where she's like her medication sent. Thank you, Ami Lopez documented in this encounterMercy Health – The Jewish Hospital05-03-2023 Evaluation note* Encounter Date Diagnosis Assessment Notes Treatment Notes Treatment Clinical Notes August, Mass of upper outer quadrant of right breast (ICD-10 - N63.11) [facility] [employer] Other 05-03-2023 History of Present illness Narrative* Peterson Gonsalez MD - 08/16/2022 12:45 PM EDT [facility] VIRTUAL VISIT REASON [...] 195 prior to surgery). Has seen a screener operator as well as PT. 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 Extensive work-up was performed, including multiple LPs, meningeal biopsy (positive for fungal hyphae), PSYCH NURSE shunt placement with clinical improvement with this [...] 01/09/2022 7.40 7.35 - 7.45 Final Specific [place], [place] Date Value Ref Range Status 06/12/2022 [...] (BAQSIMI) 3 mg/actuation nasal spray Use 1 Calumet in the nose as needed. acetaminophen (TYLENOL) [...] which included preparing to see the patient, [id number] patient care, completing clinical documentation, counseling and educating the patient/family/caregiver, ordering medications, tests, or procedures, and communicating with other HCPs (not separately reported). I have communicated my name and active licensure. The patient's identity and physical location were verified at the time of this visit. Either the patient or their legal policy services representative has been informed of the risks [...] MD August 16, 2022 documented in this encounterMercy Health – The Jewish Hospital05-03-2023 History of Present illness Narrative* Carolyn Echevarria [...] 16, 2022 9:00 AM documented in this encounterMercy Health – The Jewish Hospital04-28-2023 Evaluation note* Encounter Date Diagnosis Assessment [...] achieve/maintain a normal BMI. Jul,Hydrocephalus (ICD-10 - G91.9)PSYCH NURSE shunt in place and functional No headache, [...] along w/ meal time sliding scale coverage [facility] Other 04-25-2023 Progress note Author Marjorie Headley [facility] August 08, 2022 1:48pmNote Date/TimeApril 2022 1:48pm[place]ras[place] [address] Wound Center Provider Note Signed Patient: Chikis Tobar MR#: [id number] : 1965 Acct:[id number] Age/Sex: 57 / F Copies to: DO Marjorie Goins, BACK UP SCAN COORDINATOR~ HPI Date of Visit Date of Visit: Date of Service: 08/08/2022 Time of Service: 13:39 Narrative HPI: 08/08/22 Chikis is a 57 year old female presenting to [facility] wound care program for an initial [...] wound start?: May 2022 Mode of Arrival/ Air Brakes Inspector: Family Assistive Device Used Today: Walker Lives with:: Multiple Family Members Appetite Description: Within Normal Limits Who helps w/ dressing change?: Family Why Do You Need Help?: Can't Reach Ulcer Smoking Status: Never smoker [facility] Medical History (Updated 08/08/22 @ 13:43 by [...] Pressure Ulcer/Injury Staging: Stage 3 Bed Appearance: Blanca and Yellow Percent of Wound Bed Granulated/Red: 10 Percent of Devitalized: 90 Length (cm): 1.5 Width (cm): 1.1 Depth (cm): 0.1 CM Sq: 1.650 Surrounding Tissue Appearance: Blanca Surrounding Tissue Temp: Warm Drainage Amount: Moderate [...] <Electronically signed by STEVEN Headley> 08/08/22 1348 [facility] Work Phone: [phone]) 727-602704-21-2023 Evaluation note* Encounter Date Diagnosis Assessment Notes Treatment Notes Treatment Clinical Notes Jul, Hyperglycemia due to type 1 diab etes mellitus (ICD-10 - E10.65) [facility] Other 03-02-2023 History general Narrative - Reported* Type Description Date Medical History DM 1 Medical HistoryOBESITYMedical HistoryASTHMASurgical HistoryORIF R ANKLE FRACTURE 2000Surgical HistoryRIGHT OOPHERECTOMY FOR CYSTSurgical HistoryT5 intradural bx and placement of EV/2022Surgical HistoryVP shunt placement Hospitalization HistoryFOR SURGERIES [facility] Other 03-01-2023 History general Narrative - Reported* Type Description Date Medical History DM 1 Medical HistoryOBESITYMedical HistoryASTHMASurgical HistoryORIF R ANKLE FRACTURE 2000Surgical HistoryRIGHT OOPHERECTOMY FOR CYSTSurgical HistoryRight frontal ventriculostomy06/2022Hospitalization HistoryFOR SURGERIES [facility] Other 02-23-2023 Miscellaneous Notes* Telephone Encounter - Mik Zapata MD - 06/08/2022 11:21 AM EST Hospital Medicine Transfer Received page for transfer request from [facility] to [facility]: Chikis Tobar is 57 year old female who presented with DKA and found down. She was initially intubated and treated with insulin drip in the ICU and eventually transferred to the regular floor. While she was being worked up at [facility] she was seen to have thoracic and lumbar lesion suspicious for malignancy. 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 She was seen by oncology and neurology at [facility] recommended transfer to tertiary care facility for further evaluation management. She has history of bladder cancer and has urostomy. Case was discussed with our neurosurgeon Dr. Godwin who agreed to see the patient at [place] but wanted patient to be admitted under [...] Zapata MD 11:21 AM documented in this encounterMercy Health – The Jewish Hospital02-09-2023 Evaluation note* Encounter Date Diagnosis Assessment Notes [...] May,OtherDiet and exercise with continued statin therapy. [facility] Other 01-17-2023 History of Present illness Narrative* Peterson Gonsalez MD - 05/02/2022 1:40 PM EST [facility] ESTABLISHED PATIENT OFFICE [...] her with increased calorie intake. Has jose screener operator, but has not followed up yet. She [...] 01/09/2022 7.40 7.35 - 7.45 Final Specific [place], [place] Date Value Ref Range Status 01/09/2022 [...] care, willplace consult. She has seen a screener operator, recommend she follow up with them as [...] which included preparing to see the patient, [id number] patient care, and completing clinical documentation. By signing my name below, I, Hector Fisher, attest that this documentation has been prepared under the direction and in the presence of Dr. Gonsalez Electronically signed, Birgit Hoangibcarmine STAFF PHYSICIAN NOTE OF PERSONAL INVOLVEMENT IN CARE The above noted history, physical, assessment and plan were reviewed with the provider and criticalportions of the H&P were confirmed. I evaluated and examined the patient and agree with the plan above and provided direct supervision of the above provider during this patient's care. Peterson Gonsalez MD May 02, 2022 documented in this encounterMercy Health – The Jewish Hospital11-28-2022 History of Present illness Narrative* Dion Montez [...] understands and agrees with this plan. Dion Montez MD documented in this encounterMercy Health [facility]11-28-2022 Nurse Note* Savanah Castro MA - 03/13/2022 1:07 PM EST What is the reason for your visit today? Established patient presents for post op. Who is your referring physician? Are you having poor oral intake? NO Have you had unintentional weight loss of 15 lbs/7 Kg in the last 3-6 months? NO documented in this encounterMercy Health [facility]10-28-2022 History of Present illness Narrative* Dion Montez [...] progress. Dion Montez MD documented in this encounterMercy Health – [facility]10-24-2022 History of Present illness Narrative* Dion Montez [...] Second, we will set up appointment with [facility] endocrinology for her at her request. We will arrange follow-up hopefully for tube removal when she begins to tolerate more solid food. Dion Montez MD documented in this encounterMercy Health – [facility]10-18-2022 Miscellaneous Notes* Telephone Encounter - Katiana Whitmore [...] or voicemail. * Telephone Encounter - Thi Pereira - 01/31/2022 10:05 AM EDT Patient called and left message regarding non functioning feeding tube return call to [phone] documented in this encounterMercy Health – [facility]10-18-2022 Miscellaneous Notes* Telephone Encounter - Shelbi Pérez - 01/31/2022 2:57 PM EDT Spoke with patient regarding appointments, patient confirmed all appointments documented in this encounterMercy Health [facility]10-17-2022 History of Present illness Narrative* Peterson Gonsalez MD - 01/30/2022 10:00 AM EDT [facility] ESTABLISHED PATIENT OFFICE [...] 01/09/2022 7.40 7.35 - 7.45 Final Specific [place], Ur Date Value Ref Range Status 01/09/2022 [...] which included preparing to see the patient, bsny-yt-icbh patient care, completing clinical documentation, and communicating [...] MD January 30, 2022 documented in this encounterMercy Health [facility]10-17-2022 Nurse Note* Zarina Norton RN - 01/30/2022 9:53 AM EDT Rocaephin 1 GM IM per order prior to stent removal. . Ileal conduit Ostomy appliance removed. Stent is visible. Stoma cleansed with dry sterile gauze. Sterile field created. Dr Gonsalez in to remove stent. Patient tolerated well. New appliance applied and attached to drainage tubing. documented in this encounterMercy Health [facility]10-14-2022 Miscellaneous Notes* Telephone Encounter - Shelbi Pérez - 01/27/2022 9:27 AM EDT Spoke to patient, reminder call for appointment on 01/30, patient confirmed appointment Called patient back, she is able to come at 9:30 on 01/30 documented in this encounterMercy Health [facility]10-07-2022 Miscellaneous Notes* Telephone Encounter - Greyson Ramirez - 01/20/2022 2:20 PM EDT PATIENT INFORMATION Record ID: [id number] Patient Name: [facility]: [place]: [facility] [place] Attending: Dion Montez Center: General Surgery INSTRUCTIONS SN to remind patient of next upcoming appointment date, time, location All Clear SURVEY INFORMATION Medical/Nurse Keypuncher: Greyson Patel 1. Your discharge instructions are [...] symptoms? (Standard Question) No documented in this encounterMercy Health – [facility]10-05-2022 Miscellaneous Notes* Telephone Encounter - Marlena Manzanares - 01/18/2022 10:29 AM EDT Spoke to patient confirmed OV with Dr. Gonsalez on 01/30 at [facility] and also the office visit with Dr. Dion Montez to follow at 3:40 pm. documented in this encounterMercy Health – The [facility] Hospital09-25-2022 History and physical note Author Jayashree Watts [facility] January 08, 2022 7:27pmNote Date/TimeSept2021 3:58pm[place] [address] Hospitalist H&P Signed Patient: Chikis Tobar MR#: [id number] : 1965 Acct:[id number] Age/Sex: 56 / F Adm Date: 2 Loc: Room: [address] [place] [address] Type: ADM IN Attending Dr: Jayashree Watts [...] a bladder resection with ileal conduit at [facility]. Per family she is cured of her disease. 3 days ago the patient was discharged from [facility] where she had open laparotomy due to twisted bowel . She went home and her blood sugars was over 500. Patient does have underlying history of diabetes type 1 and has insulin pump. She went to [facility] where she was treated. It seems like [...] % (Auto) 8.6 % (.) 01/08/22 04:15 [place] % (Auto) 7.2 % (.) 01/08/22 04:15 Eos % (Auto) 0.2 % (.) 01/08/22 04:15 Baso % (Auto) 0.8 % (.) 01/08/22 04:15 Neut # (Auto) 11.3 x10E3/uL (1.8-7.7) H 01/08/22 04:15 Lymph # (Auto) 1.2 x10E3/uL (1.00-4.8) 01/08/22 04:15 [place] # (Auto) 1.0 x10E3/uL (0.0-0.8) H 01/08/22 [...] pH 7.5 (5.0-9.0) 01/08/22 05:08 Ur Specific [place] 1.011 (1.001-1.030) 01/08/22 05:08 Urine Protein 30 [...] ileal conduit performed in April 2021 at [facility] CT scan showed right-sided ureteral stent associated with hydronephrosis. I am not sure if it is chronic. We will get in touch with [facility]. But her urinalysis looks without bacteria howevershe has positive leukocyte esterase and white blood cell counts will cover with antibiotic therapy.Urine cultures pending. 3. Status post recent abdominal surgery, but it seems like she had small bowel obstruction at [facility], discharged only [address] [...] was made to transfer the patient to [facility] for further care. For now await urine cultures. Continue with Invanz. Documented By: Jayashree Watts MD 01/08/22 8808 Signed By: <Electronically signed by Jayashree Watts MD> 01/08/22 140 [facility] Work Phone: 1(974) 394-474809-08-2022 Miscellaneous Notes* Telephone Encounter - Shelbi Pérez - 12/22/2021 9:28 AM EDT Tried calling patient with date for cysto, voicemail box not set up, mailed appointment reminder documented in this encounterMercy Health – [facility] Hospital09-07-2022 History of Past illness Narrative* ProblemNoted DateResolved KwnwOpxzbehpkzw67/07/202209/ Zcxbdwzsainazpmbc15/07/202209/mall bowel evhvwlkffgd92/02/2022 2documented as of this encounter (statuses as of 01/07/2022) [facility]09-02-2022 Miscellaneous Notes* Telephone Encounter - Peterson Gonsalez MD - 12/16/2021 7:19 PM EDT I contacted Chikis Juárez Amadou to follow-up after speaking with her earlier [...] I have recommended she presents to the [place] emergency department immediately for evaluation. I have communicated with the [place] ER physicians to discuss her case. I have also discussed her case with Dr. Ildefonso Montez of General Surgery. We will plan to obtain labs and repeat CT abdomen pelvis upon arrival to the emergency department, may require surgical intervention this evening which I explained to her. She expressed understanding and will head to ED now. Peterson Gonsalez MD documented in this encounterMercy Health [facility]09-02-2022 History of Past illness Narrative* ProblemNoted DateResolved DateSmall bowel lhxlpigwdrz41/02/2022 2documented as of this encounter (statuses as of 12/22/2021) [address]02-2022 History of Past illness Narrative* ProblemNoted Date Resolved DateSmall bowel vumavsolwgg482documented as of this encounter (statuses as of 01/18/2022) [place] [address]-02-2022 History of Past illness Narrative* ProblemNoted Date Resolved DateSmall bowel nhmottvgizr022documented as of this encounter (statuses as of 01/20/2022) [place] [address]22 History of Past illness Narrative* ProblemNoted Date Resolved DateSmall bowel fhuldkibark642documented as of this encounter (statuses as of 01/27/2022) [address]02-2022 History of Past illness Narrative* ProblemNoted Date Resolved DateSmall bowel thsrvhwjyqe212documented as of this encounter (statuses as of 01/31/2022) [address]02-2022 History of Past illness Narrative* ProblemNoted Date Resolved DateSmall bowel qghyayvgojn842documented as of this encounter (statuses as of 01/31/2022) [address]02-2022 History of Past illness Narrative* ProblemNoted Date Resolved DateSmall bowel iygxfimwaeu352documented as of this encounter (statuses as of 01/31/2022) [address]02-2022 History of Past illness Narrative* ProblemNoted Date Resolved DateSmall bowel figeipkxasx002documented as of this encounter (statuses as of 02/02/2022) [address]02-2022 History of Past illness Narrative* ProblemNoted Date Resolved DateSmall bowel jdohgyluxdv002documented as of this encounter (statuses as of 02/06/2022) [address]02-2022 History of Past illness Narrative* ProblemNoted Date Resolved DateSmall bowel lajmiydscjt592documented as of this encounter (statuses as of 02/10/2022) [address]02-2022 History of Past illness Narrative* ProblemNoted Date Resolved DateSmall bowel oecxrjayhao812documented as of this encounter (statuses as of 03/13/2022) [address]02-2022 History of Past illness Narrative* ProblemNoted Date Resolved DateSmall bowel pjaiftttgco152documented as of this encounter (statuses as of 05/03/2022) [address]02-2022 History of Past illness Narrative* ProblemNoted Date Resolved DateSmall bowel wkctdnryizk252documented as of this encounter (statuses as of 06/08/2022) [facility] History of Past illness Narrative* ProblemNoted Date Resolved DateSmall bowel zvzrubtlbic85/02/202209/5799Jedbqzq75/03/2021 06/11/2022 Last Assessment & Plan: Body mass index is 32.12 kg/m . documented as of this encounter (statuses as of 07/20/2022) [address]02-2022 History of Past illness Narrative* ProblemNoted Date Resolved DateSmall bowel xbkuaesiryo04/02/202209/2367Uimrqtk03/03/2021 06/11/2022 Last Assessment & Plan: Body mass index is 32.12 kg/m . documented as of this encounter (statuses as of 07/20/2022) [address]02-2022 History of Past illness Narrative* ProblemNoted Date Resolved DateSmall bowel wstsqdmxagp802Obesity02/16/2021 06/11/2022 Last Assessment & Plan: Body mass index is 32.12 kg/m . documented as of this encounter (statuses as of 08/17/2022) [facility] History of Past illness Narrative* ProblemNoted Date Resolved DateSmall bowel ewaqmclnhkl26/02/202209/1449Isuhrcv17/03/2021 06/11/2022 Last Assessment & Plan: Body mass index is 32.12 kg/m . documented as of this encounter (statuses as of 08/17/2022) [address]02-2022 History of Past illness Narrative* ProblemNoted Date Resolved DateSmall bowel vetoeoomqvp48/02/202209//9683Hzvhyng50/03/2021 06/11/2022 Last Assessment & Plan: Body mass index is 32.12 kg/m . documented as of this encounter (statuses as of 08/23/2022) [address]02-2022 History of Past illness Narrative* ProblemNoted Date Resolved DateSmall bowel oxnlruxdbvd02/02/202209//2316Kafjlhq23/03/2021 06/11/2022 Last Assessment & Plan: Body mass index is 32.12 kg/m . documented as of this encounter (statuses as of 08/25/2022) [facility] of Past illness Narrative* ProblemNoted Date Resolved DateSmall bowel lmrsklpkpel42/02/202209/1860Eendtpc17/03/2021 06/11/2022 Last Assessment & Plan: Body mass index is 32.12 kg/m . documented as of this encounter (statuses as of 09/21/2022) [facility] History of Past illness Narrative* ProblemNoted Date Diagnosed DateResolved DateSmall bowel gudmukyfvuz49/02/202209/besity Last Assessment & Plan: Body mass index is 32.12 kg/m . documented as of this encounter (statuses as of 10/24/2022) [facility] History of Past illness Narrative* ProblemNoted Date Diagnosed DateResolved DateSmall bowel yprtifpdyvh51/02/202209/besity Last Assessment & Plan: Body mass index is 32.12 kg/m . documented as of this encounter (statuses as of 11/24/2022) [address]02-2022 History of Past illness Narrative* ProblemNoted Date Diagnosed DateResolved DateSmall bowel vuyddclfxca36/02/202209/2Obesity Last Assessment & Plan: Body mass index is 32.12 kg/m . documented as of this encounter (statuses as of 12/15/2022) [address]02-2022 History of Past illness Narrative* ProblemNoted Date Diagnosed DateResolved DateSmall bowel pccxrgacumt88/02/202209/besity Last Assessment & Plan: Body mass index is 32.12 kg/m . documented as of this encounter (statuses as of 01/10/2023) [facility] of Past illness Narrative* ProblemNoted Date Diagnosed DateResolved DateSmall bowel flwwchbiihz35/02/202209/besity Last Assessment & Plan: Body mass index is 32.12 kg/m . documented as of this encounter (statuses as of 02/10/2023) [address]02-2022 History of Past illness Narrative* ProblemNoted Date Diagnosed DateResolved DateSmall bowel cthosslfrzx53/02/202209/besity Last Assessment & Plan: Body mass index is 32.12 kg/m . documented as of this encounter (statuses as of 03/07/2023) [address]02-2022 History of Past illness Narrative* ProblemNoted Date Diagnosed DateResolved DateSmall bowel qenhijsjdgr91/02/202209/besity Last Assessment & Plan: Body mass index is 32.12 kg/m . documented as of this encounter (statuses as of 04/10/2023) [address]02-2022 History of Past illness Narrative* ProblemNoted Date Diagnosed DateResolved DateSmall bowel vjqpeadcnju77/02/202209/2Obesity Last Assessment & Plan: Body mass index is 32.12 kg/m . documented as of this encounter (statuses as of 06/20/2023) [address]02-2022 History of Past illness Narrative* ProblemNoted Date Diagnosed DateResolved DateSmall bowel itqcmxvmwts112Obesity Last Assessment & Plan: Body mass index is 32.12 kg/m . documented as of this encounter (statuses as of 06/21/2023) [address]02-2022 History of Past illness Narrative* ProblemNoted Date Diagnosed DateResolved DateSmall bowel zgkjbpifpup992Obesity Last Assessment & Plan: Body mass index is 32.12 kg/m . documented as of this encounter (statuses as of 06/27/2023) [address]02-2022 History of Past illness Narrative* ProblemNoted Date Diagnosed DateResolved DateSmall bowel qvdomwopccl74besity Last Assessment & Plan: Body mass index is 32.12 kg/m . documented as of this encounter (statuses as of 06/29/2023) [address]02-2022 History of Past illness Narrative* ProblemNoted Date Diagnosed DateResolved DateSmall bowel suflmflwiak402Obesity Last Assessment & Plan: Body mass index is 32.12 kg/m . documented as of this encounter (statuses as of 07/04/2023) [address]02-2022 History of Past illness Narrative* ProblemNoted Date Diagnosed DateResolved DateSmall bowel zcfznyiozop80/2Obesity Last Assessment & Plan: Body mass index is 32.12 kg/m . documented as of this encounter (statuses as of 08/01/2023) [address]02-2022 History of Past illness Narrative* ProblemNoted Date Diagnosed DateResolved DateSmall bowel fdebetsnanq70/02/202209/2Obesity Last Assessment & Plan: Body mass index is 32.12 kg/m . documented as of this encounter (statuses as of 08/01/2023) [facility] of Past illness Narrative* ProblemNoted Date Diagnosed DateResolved DateSmall bowel oqigzfwccgs22/02/202209/2Obesity Last Assessment & Plan: Body mass index is 32.12 kg/m . documented as of this encounter (statuses as of 08/02/2023) [facility] History of Past illness Narrative* ProblemNoted Date Diagnosed DateResolved DateSmall bowel elaryfkevpx92/02/202209/2Obesity 02/16// Last Assessment & Plan: Body mass index is 32.12 kg/m . documented as of this encounter (statuses as of 08/04/2023) [facility] Miscellaneous Notes* Telephone Encounter - Jovanna Caceres - 12/15/2021 4:24 PM EDT Peterson Gonsalez MD P Avw Urol Senior Technical Analyst This patient is scheduled to see me [...] Most are booking out documented in this encounterMercy Health [facility]08-31-2022 Miscellaneous Notes* Telephone Encounter - Peterson Gonsalez [...] will let meknow and immediately present to [facility] ED for admission and further management. If [...] SBO. Peterson Gonsalez MD documented in this encounterMercy Health – [facility]08-17-2022 History of Present illness Narrative* Peterson Gonsalez MD - 11/30/2021 3:15 PM EDT Appointment rescheduled documented in this encounterMercy Health – The [facility] Hospital07-18-2022 Miscellaneous Notes* Telephone Encounter - Peterson Gonsalez MD - 10/31/2021 11:37 AM EDT I contacted Chikis Tobar to review CT results, which show small pelvic fluid collection not amenable to percutaneous drainage, without evidence of pubic osteo. Given vaginal drainage, will start empiric Augmentin and she will give an update in 2 weeks. Peterson Gonsalez MD documented in this encounterMercy Health – [facility]07-12-2022 History of Present illness Narrative* Colette Carver [...] October 25, 2021 TIME: 12:26 PM * Ian Hanson, RT(R) - 10/25/2021 12:15 PM EDT [...] 25, 2021 12:41 PM documented in this encounterMercy Health – [facility] Hospital06-29-2022 Miscellaneous Notes* Telephone Encounter - Chelsie Barrow RN - 10/12/2021 10:06 AM EDT Please sign pending Cre order for Chikis Tobar [id number] for upcoming CT with contrast. Thank you. 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 Ureteral stent removed 05/25/21. She contacted ar 06/15/21 reporting ongoing intermittent nausea and vomiting [...] 04/20/2021 7.40 7.35 - 7.45 Final Specific [place], Ur Date Value Ref Range Status 04/13/2021 [...] MD October 11, 2021 documented in this encounterMercy Health [facility] Hospital06-24-2022 Miscellaneous Notes* Telephone Encounter - Chelsie Bridges [...] in November. Patient accepted 10/11/2021 150pm at [facility]. Updated Dr. Gnosalez. Chelsie Bridges RN * Telephone Encounter - [...] concerned is the pain documented in this encounterMercy Health – The [facility] Hospital06-08-2022 Nurse Note* Cindy Magana RN - 09/21/2021 [...] In Department: AMBULATORY SURGERY documented in this encounterMercy Health – The [facility] Hospital06-08-2022 History and physical note * Myrna Mendez [...] 2:22 PM PAGER/CONTACT #: documented in this encounterMercy Health – The [facility] Hospital05-10-2022 History of Present illness Narrative* Jose Schmid, BACK UP SCAN COORDINATOR.SUPERVISOR NET MAKING - 08/23/2021 10:35 AM EDT DEPARTMENT OF [...] APRN.CNP 08/23/2021 10:35 AM documented in this encounterMercy Health – The Jewish Hospital02-22-2022 History of Present illness Narrative* CHIKIS TOBAR [...] with diet plan. * Diabetes Surveillance: Foot exam/basin cleaner: 08/03/20. * Diabetes Complications: * Opthalmic: Has [...] apr 20 (stayed for 4 days at [facility]) - pt was not permitted to wear [...] this website for provider view at appointments VO-Gxhfwkmqfkdas-KRF [address] Work Phone: 1(392) 994-718502-22-2022 History of Present illness Narrative* CHIKIS TOBAR [...] with diet plan. * Diabetes Surveillance: Foot exam/basin cleaner: 08/03/20. * Diabetes Complications: * Opthalmic: Has [...] apr 20 (stayed for 4 days at [facility]) - pt was not permitted to wear [...] and difficulty walking with pelvic fluid collection XM-Obvtlicyzqohu-UTR [address] Work Phone: 1(383) 662-166712-01-2021 History of Present illness Narrative* Carolyn Echevarria RT(R) - 03/16/2021 2:45 PM EST Radiology [...] 16, 2021 2:57 PM documented in this encounterMercy Health – The [facility] Hospital11-03-2021 History of Past illness Narrative* ProblemNoted DateDiagnosed DateResolved CrleJnclnbj51/03/2021 06/11/2022 Last Assessment & Plan: Body mass index is 32.12 kg/m . documented as of this encounter (statuses as of 11/25/2022) [facility]-22-[facility] Miscellaneous Notes* Telephone Encounter - Flor De Jesus - 02/04/2021 12:18 PM EDT Attempted to reach patient by phone in chart to bring records to appointment with Dr. Gonsalez on 02/09/2021. No VM left as phone hangs up before a message can be left. Flor Luu Urology documented in this encounterMercy Health – The Jewish Hospital10-22-2021 Miscellaneous Notes* Telephone Encounter - Bree Briceno LPN - 02/04/2021 10:15 AM EDT Per staff message patient added to see Dr. Gonsalez Friday 02/09 at 8:30am Patient aware and will bring all records she has to appt. Flor Roberts is working on other records as well documented in this encounterMercy Health – The [facility] Hospital09-30-2021 NoteClinical Information Procedure: Endometrial biopsy Pre-operative diagnosis: [...] atrophic endometrial tissue with mild chronic inflammation. [id number] Katie Argueta MD (Electronically signed by) Verified: 01/17/21 15:11BMorrow County HospitalComment on above:Performed By: #### SPR #### [facility] (DEFAULT) [address] [place], [place] [id number] History of Present illness Narrative* CHIKIS TOBAR [...] with diet plan. * Diabetes Surveillance: Foot exam/basin cleaner: 08/03/20. * Diabetes Complications: * Opthalmic: Has [...] update labs and continue current pump settings ST-Nrvvmlldrgdyl-W[facility] [address] Work Phone: 1(787) 953-231304-20-2021 History of Present illness Narrative* CHIKIS TOBAR [...] with diet plan. * Diabetes Surveillance: Foot exam/basin cleaner: 08/03/20. * Diabetes Complications: * Opthalmic: Has [...] apr 20 (stayed for 4 days at [facility]) - pt was not permitted to wear [...] current sugar reading as your bolus input AT-Ennkkjihcolqw-MMY [address] Work Phone: 1(262) 793-749302-28-2020 History of Present illness Narrative* CHIKIS TOBAR [...] with diet plan. * Diabetes Surveillance: Foot exam/basin cleaner: 08/03/20. * Diabetes Complications: * Opthalmic: Has [...] bx, we reviewed her pelvic US together HS-Tstszajmnc-[address]wk[address] Work Phone: Evaluation note* Diagnosis Encounter for screening for malignant neoplasm of colon- Primary Special screening for malignant neoplasms, colon Nausea and vomiting, unspecified vomiting type Early satiety Nausea Nausea alone documented in this encounter [facility]Eval[facility]* Diagnosis Nausea and vomiting, unspecified vomiting type Encounter for screening for malignant neoplasm of colon Special screening for malignant neoplasms, colon documented in this encounter [facility]Eval[facility]* Diagnosis History of bladder cancer- Primary Personal history of malignant neoplasm of bladder Abdominal pain, unspecified abdominal location documented in this encounter [facility] HospitalEvaluation [facility]* Diagnosis Malignant neoplasm of urinary bladder, unspecified site (HCC)- Primary documented in this encounter [facility]Eval[facility]* Diagnosis Malignant neoplasm of urinary bladder, unspecified site (HCC)- Primary Malignant neoplasm of urinary bladder, unspecified site (HCC) documented in this encounter [facility]Eval[facility]* Diagnosis APPOINTMENT CANCELLED- Primary documented in this encounter [facility]* Diagnosis Small bowel obstruction (HCC)- Primary Unspecified intestinal obstruction documented in this encounter [facility]Eval[facility]* Diagnosis Onset Date Resolution Status Abdominal pain acuteAltered mental statusacuteUnable to care for selfacute [facility] Work Phone: Evaluation note* Diagnosis History of bladder cancer- Primary Personal history of malignant neoplasm of bladder Malignant neoplasm of urinary bladder, unspecified site (HCC) [facility] Diagnosis Severe protein-calorie malnutrition (HCC)- Primary Other severe protein-calorie malnutrition S/P exploratory laparotomy Other postprocedural status [facility] Diagnosis S/P exploratory laparotomy- Primary Other postprocedural status Severe protein-calorie malnutrition (HCC) Other severe protein-calorie malnutrition [facility] Diagnosis S/P exploratory laparotomy- Primary Other postprocedural status Severe protein-calorie malnutrition (HCC) Other severe protein-calorie malnutrition Chronic low back pain without sciatica, unspecified back pain laterality [facility] Diagnosis History of bladder cancer- Primary Personal history of malignant neoplasm of bladder [facility] noteNo [place] [employer] Other Evaluation note* Diagnosis Cervicalgia- Primary [facility] Diagnosis Other hydrocephalus (HCC)- Primary [facility] Diagnosis Malignant neoplasm of urinary bladder, unspecified site (HCC)- Primary Severe protein-calorie malnutrition (HCC) Other severe protein-calorie malnutrition Type 1 diabetes mellitus with unspecified complications (HCC) [facility] Diagnosis Other hydrocephalus (HCC)- Primary Severe protein-calorie malnutrition (HCC) Other severe protein-calorie malnutrition [facility] Diagnosis Other hydrocephalus (HCC)- Primary [facility]* Diagnosis Onset Date Resolution Status Bladder cancer chronicLimited mobilitychronicThin build in adultchronicType 1 diabetes mellitus chronicWalker as ambulation aidchronicPressure ulcer of sacral region, stage 3 resolved [facility] Work Phone: Evaluation [place] [employer] Other Evaluation note* Diagnosis Therapeutic drug monitoring- Primary Encounter for therapeutic drug monitoring Fungal meningitis Other and unspecified mycoses 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 Type 1 diabetes mellitus with unspecified complications (HCC) documented in this encounter [facility] note* Diagnosis Other hydrocephalus (HCC) documented in this encounter [facility] note* Diagnosis Malignant neoplasm of urinary bladder, unspecified site (HCC) documented in this encounter [facility] note* Diagnosis Other hydrocephalus (HCC)- Primary documented in this encounter [facility] note* Diagnosis History of bladder cancer- Primary Personal history of malignant neoplasm of bladder documented in this encounter [facility] note* Diagnosis Fungal meningitis- Primary Other and unspecified mycoses Obstructive hydrocephalus (HCC) Obstructive hydrocephalus 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 Type 1 diabetes mellitus with unspecified complications (HCC) Myelitis (HCC) Unspecified cause of encephalitis, myelitis, and encephalomyelitis 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 documented in this encounter [facility] note* Diagnosis Fungal meningitis- Primary Other and unspecified mycoses Acute pain of both shoulders Obstructive hydrocephalus (HCC) Obstructive hydrocephalus Therapeutic drug monitoring Encounter for therapeutic drug monitoring 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 Type 1 diabetes mellitus with unspecified complications (HCC) Myelitis (HCC) Unspecified cause of encephalitis, myelitis, and encephalomyelitis documented in this encounter [facility] note* Diagnosis Closed nondisplaced transverse fracture of left patella, initial encounter- Primary documented in this encounter [facility] note* Diagnosis APPOINTMENT CANCELLED- Primary documented in this encounter [facility] noteNo assessment information availableOhio[facility] Work Phone: Evaluation note* Diagnosis 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 [facility] Diagnosis Intraoperative ureteral injury- Primary [facility] Diagnosis Onset Date Resolution Status HTN (hypertension) acuteNecrosis of intestineacuteTransitional cell bladder canceracuteType 1 diabetes mellituschronicEustachian tube dysfunctionacute [facility] Work Phone: Evaluation note* Diagnosis Fungal meningitis- Primary Other and unspecified mycoses 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 Type 1 diabetes mellitus with unspecified complications (HCC) 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 [facility] Diagnosis Closed nondisplaced transverse fracture of left patella, initial encounter- Primary [facility] Diagnosis Closed nondisplaced transverse fracture of left patella, initial encounter [facility]- 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 Diagnosis 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) [facility] Diagnosis Other [facility]us (HCC)- Primary [facility] Diagnosis 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 [facility] Diagnosis 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 Screening for condition Screening for unspecified condition [facility]* Diagnosis Attention to urostomy (HCC)- Primary Attention to other artificial opening of urinary tract Attention to artificial opening of urinary tract (HCC) Attention to other artificial opening of urinary tract 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 [facility] Diagnosis History of bladder cancer- Primary Personal history of malignant neoplasm of bladder Severe protein-calorie malnutrition (HCC) Other severe protein-calorie malnutrition 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 [facility] Diagnosis History of bladder cancer- Primary Personal history of malignant neoplasm of bladder 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 [facility] Diagnosis Screening for genitourinary condition Screening for other and unspecified genitourinary condition 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 [facility] Diagnosis History of bladder cancer- Primary Personal history of malignant neoplasm of bladder 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 [facility]* Diagnosis Hydrocephalus, adult (HCC)- Primary Obstructive hydrocephalus Other hydrocephalus (HCC) Meningitis, fungal Other and unspecified mycoses Weakness of both lower extremities Spasticity Abnormal involuntary movements 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 [facility] Diagnosis Onset Date Resolution Status HTN (hypertension) acuteNecrosis of intestineacuteTransitional cell bladder canceracuteType 1 diabetes mellituschronicEustachian tube dysfunctionacuteChronic venous insufficiencyacuteHTN (hypertension)acuteHydrocephalusacuteMuscle spasticity acuteType 1 diabetes mellitus with hyperglycemiaacute [facility] Work Phone: Evaluation note* Diagnosis Hydrocephalus, adult (HCC)- Primary Obstructive hydrocephalus 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 [facility]* Diagnosis History of bladder cancer Personal history of malignant neoplasm of bladder 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 [facility] Diagnosis Fungal meningitis- Primary Other and unspecified mycoses Muscle spasm of left lower extremity Muscle spasm of right lower extremity 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 shelter (current) use of antibiotics Therapeutic drug monitoring Encounter for therapeutic drug monitoring Type 1 diabetes mellitus with unspecified complications (HCC) 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 [facility] Diagnosis Other hydrocephalus (HCC)- Primary [facility]* Diagnosis Tibia/fibula fracture, left, closed, initial encounter- Primary [facility]* Diagnosis Tibia/fibula fracture, left, closed, initial encounter [facility]* Diagnosis Other hydrocephalus (HCC)- Primary [facility]* Diagnosis Pressure injury of deep tissue of left heel- Primary Maceration of periwound skin Pressure injury of deep tissue of left foot Physical deconditioning Debility, unspecified [facility]* Diagnosis Weak- Primary Other malaise and fatigue Fracture Closed fracture of unspecified bone 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 [facility]* Diagnosis Obstructive hydrocephalus (HCC)- Primary Obstructive hydrocephalus Fungal meningitis Other and unspecified mycoses Tibia/fibula fracture, left, closed, initial encounter Diabetes mellitus type 1, controlled, without complications (HCC) Type I (juvenile type) diabetes mellitus without mention of complication, not stated as uncontrolled Malignant neoplasm of urinary bladder, unspecified site (HCC) [facility]* Diagnosis Pressure injury of left heel, unstageable (HCC)- Primary Physical deconditioning Debility, unspecified [facility] Diagnosis Obstructive hydrocephalus (HCC)- Primary Obstructive hydrocephalus Fungal meningitis Other and unspecified mycoses [facility]* Diagnosis Obstructive hydrocephalus (HCC)- Primary Obstructive hydrocephalus [facility] Diagnosis Obstructive hydrocephalus (HCC)- Primary Obstructive hydrocephalus Fungal meningitis Other and unspecified mycoses [facility] Diagnosis Obstructive hydrocephalus (HCC)- Primary Obstructive hydrocephalus Fungal meningitis Other and unspecified mycoses [facility] Diagnosis Obstructive hydrocephalus (HCC) Obstructive hydrocephalus [facility] Diagnosis Tibia/fibula fracture, left, closed, initial encounter- Primary Severe protein-calorie malnutrition (HCC) Other severe protein-calorie malnutrition [facility] Diagnosis Tibia/fibula fracture, left, closed, initial encounter [facility]* Diagnosis Fungal meningitis- Primary Other and unspecified mycoses 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 Muscle spasm of left lower extremity Myelitis (HCC) Unspecified cause of encephalitis, myelitis, and encephalomyelitis Muscle spasm of right lower extremity 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 [facility] Diagnosis Pressure injury of left heel, unstageable (HCC)- Primary Physical deconditioning Debility, unspecified [facility]* Diagnosis Spasticity- Primary Abnormal involuntary movements Other hydrocephalus (HCC) [facility]* Diagnosis Other hydrocephalus (HCC) [facility]* Diagnosis Pre-op evaluation- Primary Preoperative [...] (HCC) Obstructive hydrocephalus [facility] Diagnosis Pre-op evaluation- Primary Preoperative examination, [...] Other ill-defined conditions [facility] Diagnosis Pre-op evaluation- Primary Preoperative examination, [...] (used in SmartSet) [facility] Diagnosis Pre-op evaluation- Primary Preoperative examination, [...] Malignant neoplasm of urinary bladder, unspecified site ([facility]) Class 1 obesity with body mass index [...] deconditioning Debility, unspecified [facility] Diagnosis Pre-op evaluation- Primary Preoperative examination, [...] 1 diabetes mellitus with other specified complication ([facility]) Asthma, unspecified asthma severity, unspecified whether complicated, unspecified whether persistent Hypertension, unspecified type Palpitations Neoplasm of bladder Neoplasm of unspecified nature of bladder Hydrocephalus ([facility])- Primary Obstructive hydrocephalus 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 Type 1 diabetes mellitus with hyperglycemia ([facility]) Type I (juvenile type) diabetes mellitus without [...] Pressure injury of coccygeal region, stage 2 ([facility]) Preop exam for internal medicine Other specified pre-operative examination Pressure injury of deep tissue of left heel Alteration in self-care ability Debility, unspecified Impaired mobility Other ill-defined conditions Risk for falls Personal history of fall S/P exploratory laparotomy Other postprocedural status Pressure injury of deep tissue of left foot Long-term insulin use ([facility]) Encounter for long-term (current) use of insulin Obstructive hydrocephalus ([facility])- Primary Obstructive hydrocephalus Fungal meningitis Other and unspecified mycoses [facility] Diagnosis Pre-op evaluation- Primary Preoperative examination, [...] (HCC) Obstructive hydrocephalus [facility] Diagnosis Pre-op evaluation- Primary Preoperative examination, [...] tissue of left foot Long-term insulin use ([facility]) Encounter for long-term (current) use of insulin Obstructive hydrocephalus (HCC)- Primary Obstructive hydrocephalus Fungal meningitis Other and unspecified mycoses [facility] Diagnosis Pre-op evaluation- Primary Preoperative examination, [...] tissue of left foot Long-term insulin use ([facility]) Encounter for long-term (current) use of insulin Obstructive hydrocephalus ([facility])- Primary Obstructive hydrocephalus Fungal meningitis Other and unspecified mycoses documented in this encounter [facility] note* Diagnosis Pre-op evaluation- Primary Preoperative examination, [...] Malignant neoplasm of urinary bladder, unspecified site ([facility]) Class 1 obesity with body mass index (BMI) of 32.0 to 32.9 in adult, unspecified obesity type, unspecified whether serious comorbidity present Type 1 diabetes mellitus with other specified complication ([facility]) Asthma, unspecified asthma severity, unspecified whether complicated, unspecified whether persistent Hypertension, unspecified type Palpitations Neoplasm of bladder Neoplasm of unspecified nature of bladder Hydrocephalus ([facility])- Primary Obstructive hydrocephalus 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 Type 1 diabetes mellitus with hyperglycemia ([facility]) Type I (juvenile type) diabetes mellitus without [...] Pressure injury of coccygeal region, stage 2 ([facility]) Preop exam for internal medicine Other specified pre-operative examination Pressure injury of deep tissue of left heel Alteration in self-care ability Debility, unspecified Impaired mobility Other ill-defined conditions Risk for falls Personal history of fall S/P exploratory laparotomy Other postprocedural status Pressure injury of deep tissue of left foot Long-term insulin use ([facility]) Encounter for long-term (current) use of insulin Pressure injury of left heel, unstageable ([facility])- Primary Physical deconditioning Debility, unspecified [facility] Diagnosis Pre-op evaluation- Primary Preoperative examination, [...] 1 diabetes mellitus with other specified complication ([facility]) Asthma, unspecified asthma severity, unspecified whether complicated, unspecified whether persistent Hypertension, unspecified type Palpitations Neoplasm of bladder Neoplasm of unspecified nature of bladder Hydrocephalus (HCC)- Primary Obstructive hydrocephalus 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 Type 1 diabetes mellitus with hyperglycemia ([facility]) Type I (juvenile type) diabetes mellitus without [...] Pressure injury of coccygeal region, stage 2 ([facility]) Preop exam for internal medicine Other specified pre-operative examination Pressure injury of deep tissue of left heel Alteration in self-care ability Debility, unspecified Impaired mobility Other ill-defined conditions Risk for falls Personal history of fall S/P exploratory laparotomy Other postprocedural status Pressure injury of deep tissue of left foot Long-term insulin use ([facility]) Encounter for long-term (current) use of insulin Obstructive hydrocephalus ([facility])- Primary Obstructive hydrocephalus Fungal meningitis Other and unspecified mycoses Essential hypertension Unspecified essential hypertension [facility] Diagnosis Pre-op evaluation- Primary Preoperative [...] Pressure injury of coccygeal region, stage 2 ([facility]) Preop exam for internal medicine Other specified pre-operative examination Pressure injury of deep tissue of left heel Alteration in self-care ability Debility, unspecified Impaired mobility Other ill-defined conditions Risk for falls Personal history of fall S/P exploratory laparotomy Other postprocedural status Pressure injury of deep tissue of left foot Long-term insulin use ([facility]) Encounter for long-term (current) use of insulin Pressure injury of left heel, unstageable ([facility])- Primary Physical deconditioning Debility, unspecified [facility] Diagnosis Pre-op evaluation- Primary Preoperative examination, [...] and unspecified mycoses [facility] Diagnosis Pre-op evaluation- Primary Preoperative examination, [...] Other hydrocephalus (HCC) documented in this encounter [facility] note* Diagnosis Pre-op evaluation- Primary Preoperative examination, [...] (HCC) Communicating hydrocephalus documented in this encounter [facility] note* Diagnosis Pre-op evaluation- Primary Preoperative examination, [...] (HCC) Communicating hydrocephalus documented in this encounter [facility] note* Diagnosis Pre-op evaluation- Primary Preoperative examination, [...] (HCC) Communicating hydrocephalus documented in this encounter [facility] note* Diagnosis Pre-op evaluation- Primary Preoperative examination, [...] (HCC) Communicating hydrocephalus documented in this encounter [facility] note* Diagnosis Pre-op evaluation- Primary Preoperative examination, [...] (HCC) Communicating hydrocephalus documented in this encounter [facility] note* Diagnosis Pre-op evaluation- Primary Preoperative examination, [...] and unspecified mycoses [facility] Diagnosis Pre-op evaluation- Primary Preoperative examination, [...] hydrocephalus Type 1 diabetes mellitus with hyperglycemia ([facility]) Type I (juvenile type) diabetes mellitus without [...] Pressure injury of coccygeal region, stage 2 ([facility]) Preop exam for internal medicine Other specified pre-operative examination Pressure injury of deep tissue of left heel Alteration in self-care ability Debility, unspecified Impaired mobility Other ill-defined conditions Risk for falls Personal history of fall S/P exploratory laparotomy Other postprocedural status Pressure injury of deep tissue of left foot Long-term insulin use ([facility]) Encounter for long-term (current) use of insulin Myelitis ([facility])- Primary Unspecified cause of encephalitis, myelitis, and encephalomyelitis Invasive fungal infection shelter (current) use of antibiotics Therapeutic drug monitoring Encounter for therapeutic drug monitoring Muscle spasm of right lower extremity Muscle spasm of left lower extremity NO SHOW 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 [facility] Diagnosis Pre-op evaluation- Primary Preoperative examination, [...] Pressure injury of coccygeal region, stage 2 ([facility]) Preop exam for internal medicine Other specified pre-operative examination Pressure injury of deep tissue of left heel Alteration in self-care ability Debility, unspecified Impaired mobility Other ill-defined conditions Risk for falls Personal history of fall S/P exploratory laparotomy Other postprocedural status Pressure injury of deep tissue of left foot Long-term insulin use ([facility]) Encounter for long-term (current) use of insulin Tibia/fibula fracture, left, closed, initial encounter- Primary [facility] [facility] Pre-op evaluation- Primary Preoperative examination, [...] and unspecified mycoses [facility] Diagnosis Pre-op evaluation- Primary Preoperative examination, [...] tissue of left foot Long-term insulin use ([facility]) Encounter for long-term (current) use of insulin Pressure injury of left heel, unstageable ([facility])- Primary Physical deconditioning Debility, unspecified [facility] Diagnosis Pre-op evaluation- Primary Preoperative examination, [...] Malignant neoplasm of urinary bladder, unspecified site ([facility]) Class 1 obesity with body mass index (BMI) of 32.0 to 32.9 in adult, unspecified obesity type, unspecified whether serious comorbidity present Type 1 diabetes mellitus with other specified complication ([facility]) Asthma, unspecified asthma severity, unspecified whether complicated, unspecified whether persistent Hypertension, unspecified type Palpitations Neoplasm of bladder Neoplasm of unspecified nature of bladder Hydrocephalus ([facility])- Primary Obstructive hydrocephalus 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 Type 1 diabetes mellitus with hyperglycemia ([facility]) Type I (juvenile type) diabetes mellitus without [...] hydrocephalus (HCC)- Primary documented in this encounter [facility] note* Diagnosis Pre-op evaluation- Primary Preoperative examination, [...] (HCC) Communicating hydrocephalus documented in this encounter [facility] note* Diagnosis Pre-op evaluation- Primary Preoperative examination, [...] Other hydrocephalus (HCC) [facility] Diagnosis Pre-op evaluation- Primary Preoperative examination, [...] closed, initial encounter documented in this encounter [facility] note* Diagnosis Pre-op evaluation- Primary Preoperative examination, [...] (HCC) Communicating hydrocephalus documented in this encounter [facility] note* Diagnosis Pre-op evaluation- Primary Preoperative examination, [...] tissue of left foot Long-term insulin use ([facility]) Encounter for long-term (current) use of insulin Obstructive hydrocephalus ([facility])- Primary Obstructive hydrocephalus Fungal meningitis Other and unspecified mycoses [facility] Diagnosis Pre-op evaluation- Primary Preoperative examination, [...] Malignant neoplasm of urinary bladder, unspecified site ([facility]) Class 1 obesity with body mass index (BMI) of 32.0 to 32.9 in adult, unspecified obesity type, unspecified whether serious comorbidity present Type 1 diabetes mellitus with other specified complication ([facility]) Asthma, unspecified asthma severity, unspecified whether complicated, unspecified whether persistent Hypertension, unspecified type Palpitations Neoplasm of bladder Neoplasm of unspecified nature of bladder Hydrocephalus ([facility])- Primary Obstructive hydrocephalus 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 Type 1 diabetes mellitus with hyperglycemia ([facility]) Type I (juvenile type) diabetes mellitus without [...] tissue of left foot Long-term insulin use ([facility]) Encounter for long-term (current) use of insulin Obstructive hydrocephalus (HCC)- Primary Obstructive hydrocephalus Fungal meningitis Other and unspecified mycoses Essential hypertension Unspecified essential hypertension Tibia/fibula fracture, left, closed, initial encounter Diabetes mellitus type 1, controlled, without complications (HCC) Type I (juvenile type) diabetes mellitus without mention of complication, not stated as uncontrolled [facility] Diagnosis Pre-op evaluation- Primary Preoperative examination, [...] Malignant neoplasm of urinary bladder, unspecified site ([facility]) Class 1 obesity with body mass index [...] Pressure injury of coccygeal region, stage 2 ([facility]) Preop exam for internal medicine Other specified pre-operative examination Pressure injury of deep tissue of left heel Alteration in self-care ability Debility, unspecified Impaired mobility Other ill-defined conditions Risk for falls Personal history of fall S/P exploratory laparotomy Other postprocedural status Pressure injury of deep tissue of left foot Long-term insulin use ([facility]) Encounter for long-term (current) use of insulin Obstructive hydrocephalus ([facility])- Primary Obstructive hydrocephalus Fungal meningitis Other and unspecified mycoses documented in this encounter [facility] note* Diagnosis Pre-op evaluation- Primary Preoperative examination, [...] Pressure injury of coccygeal region, stage 2 ([facility]) Preop exam for internal medicine Other specified pre-operative examination Pressure injury of deep tissue of left heel Alteration in self-care ability Debility, unspecified Impaired mobility Other ill-defined conditions Risk for falls Personal history of fall S/P exploratory laparotomy Other postprocedural status Pressure injury of deep tissue of left foot Long-term insulin use ([facility]) Encounter for long-term (current) use of insulin Pressure injury of left heel, unstageable ([facility])- Primary Physical deconditioning Debility, unspecified [facility] Diagnosis Pre-op evaluation- Primary Preoperative examination, [...] tissue of left foot Long-term insulin use ([facility]) Encounter for long-term (current) use of insulin Obstructive hydrocephalus (HCC)- Primary Obstructive hydrocephalus Fungal meningitis Other and unspecified mycoses [facility] Diagnosis Pre-op evaluation- Primary Preoperative examination, [...] Primary [facility] Diagnosis Pre-op evaluation- Primary Preoperative examination, [...] deconditioning Debility, unspecified documented in this encounter [facility] note* Diagnosis Pre-op evaluation- Primary Preoperative examination, [...] Malignant neoplasm of urinary bladder, unspecified site ([facility]) Class 1 obesity with body mass index (BMI) of 32.0 to 32.9 in adult, unspecified obesity type, unspecified whether serious comorbidity present Type 1 diabetes mellitus with other specified complication ([facility]) Asthma, unspecified asthma severity, unspecified whether complicated, unspecified whether persistent Hypertension, unspecified type Palpitations Neoplasm of bladder Neoplasm of unspecified nature of bladder Hydrocephalus (HCC)- Primary Obstructive hydrocephalus 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 Type 1 diabetes mellitus with hyperglycemia ([facility]) Type I (juvenile type) diabetes mellitus without [...] Pressure injury of coccygeal region, stage 2 ([facility]) Preop exam for internal medicine Other specified [...] extremity edema Edema documented in this encounter [facility] note* Diagnosis Pre-op evaluation- Primary Preoperative examination, [...] mass (HCC) Unspecified disease of spinal cord shelter (current) use of antibiotics 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 [facility] Diagnosis Pre-op evaluation- Primary Preoperative examination, [...] Pressure injury of coccygeal region, stage 2 ([facility]) Preop exam for internal medicine Other specified pre-operative examination Pressure injury of deep tissue of left heel Alteration in self-care ability Debility, unspecified Impaired mobility Other ill-defined conditions Risk for falls Personal history of fall S/P exploratory laparotomy Other postprocedural status Pressure injury of deep tissue of left foot Long-term insulin use ([facility]) Encounter for long-term (current) use of insulin Fungal meningitis- Primary Other and unspecified mycoses [facility] Diagnosis Pre-op evaluation- Primary Preoperative examination, [...] insulin 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, not stated as uncontrolled Elevated alkaline phosphatase level Other nonspecific abnormal serum enzyme levels Type 1 diabetes mellitus with hypoglycaemia (HCC) 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) Insulin pump status Insulin pump titration Fitting and adjustment of insulin pump [facility] Diagnosis Pre-op evaluation- Primary Preoperative examination, [...] Malignant neoplasm of urinary bladder, unspecified site ([facility]) [facility] Diagnosis Pre-op evaluation- Primary Preoperative examination, [...] use of insulin 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 Spasm of muscle Myelitis ([facility]) Unspecified cause of encephalitis, myelitis, and encephalomyelitis Impaired mobility and activities of daily living Other ill-defined conditions [facility] Diagnosis Pre-op evaluation- Primary Preoperative examination, [...] Malignant neoplasm of urinary bladder, unspecified site ([facility]) Class 1 obesity with body mass index (BMI) of 32.0 to 32.9 in adult, unspecified obesity type, unspecified whether serious comorbidity present Type 1 diabetes mellitus with other specified complication (HCC) Asthma, unspecified asthma severity, unspecified whether complicated, unspecified whether persistent Hypertension, unspecified type Palpitations Neoplasm of bladder Neoplasm of unspecified nature of bladder Hydrocephalus ([facility])- Primary Obstructive hydrocephalus 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 Type 1 diabetes mellitus with hyperglycemia ([facility]) Type I (juvenile type) diabetes mellitus without [...] Other ill-defined conditions [facility] Diagnosis Pre-op evaluation- Primary Preoperative examination, [...] 1 diabetes mellitus with other specified complication ([facility]) Asthma, unspecified asthma severity, unspecified whether complicated, unspecified whether persistent Hypertension, unspecified type Palpitations Neoplasm of bladder Neoplasm of unspecified nature of bladder Hydrocephalus (HCC)- Primary Obstructive hydrocephalus 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 Type 1 diabetes mellitus with hyperglycemia ([facility]) Type I (juvenile type) diabetes mellitus without [...] Pressure injury of coccygeal region, stage 2 ([facility]) Preop exam for internal medicine Other specified pre-operative examination Pressure injury of deep tissue of left heel Alteration in self-care ability Debility, unspecified Impaired mobility Other ill-defined conditions Risk for falls Personal history of fall S/P exploratory laparotomy Other postprocedural status Pressure injury of deep tissue of left foot Long-term insulin use ([facility]) Encounter for long-term (current) use of insulin 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 Myelitis ([facility]) Unspecified cause of encephalitis, myelitis, and encephalomyelitis Impaired mobility and activities of daily living Other ill-defined conditions documented in this encounter [facility] note* Diagnosis Pre-op evaluation- Primary Preoperative examination, [...] Abnormal involuntary movements [facility] Diagnosis Pre-op evaluation- Primary Preoperative examination, [...] Primary Communicating hydrocephalus [facility] Diagnosis Pre-op evaluation- Primary Preoperative examination, [...] Fungal meningitis Other and unspecified mycoses S/P PSYCH NURSE shunt Presence of cerebrospinal fluid drainage device Bilateral lower extremity edema Edema Essential hypertension Unspecified essential hypertension Diabetes mellitus type 1, controlled, without complications (HCC) Type I (juvenile type) diabetes mellitus without mention of complication, not stated as uncontrolled Malignant neoplasm of urinary bladder, unspecified site ([facility]) [facility] Diagnosis Pre-op evaluation- Primary Preoperative examination, [...] stage (HCC)- Primary [facility] Diagnosis Onset Date Resolution Status Admit Date Chronic venous insufficiency acuteNovember 2023 3:46pmHTN (hypertension)acuteNovember 2023 3:46pm HydrocephalusacuteNovember 2023 3:46pmTibia fractureacuteNovember 2023 3:46pmType 1 diabetes mellitus with hyperglycemiaacuteNovember 2023 3:46pmAcute sinus infectionnoneactiveNovember 2023 3:46pm [facility] Work Phone: Evaluation note* Diagnosis History of ileal conduit- Primary Small bowel obstruction (HCC) Unspecified intestinal obstruction documented in this encounter [facility] [employer] Work Phone: Evaluation note* Diagnosis Small bowel obstruction (HCC)- Primary Unspecified intestinal obstruction Generalized abdominal pain Abdominal pain, generalized Small bowel obstruction (HCC) Unspecified intestinal obstruction Nausea and vomiting, unspecified vomiting type History of ileal conduit Ureter injury, initial encounter Tachycardia, unspecified documented in this encounter [facility] [employer] Work Phone: Evaluation note* Diagnosis Small bowel obstruction (HCC)- Primary Unspecified intestinal obstruction documented in this encounter [facility] [employer] Work Phone: Evaluation note* Diagnosis Pre-op [...] tissue of left foot Long-term insulin use ([facility]) Encounter for long-term (current) use of insulin Spasticity Abnormal involuntary movements [facility] Diagnosis Pre-op evaluation- Primary Preoperative examination, [...] Abnormal involuntary movements [facility] Diagnosis Pre-op evaluation- Primary Preoperative examination, [...] skin sensation- Primary [facility] Diagnosis Pre-op evaluation- Primary Preoperative examination, [...] Malignant neoplasm of urinary bladder, unspecified site ([facility]) Class 1 obesity with body mass index (BMI) of 32.0 to 32.9 in adult, unspecified obesity type, unspecified whether serious comorbidity present Type 1 diabetes mellitus with other specified complication ([facility]) Asthma, unspecified asthma severity, unspecified whether complicated, unspecified whether persistent Hypertension, unspecified type Palpitations Neoplasm of bladder Neoplasm of unspecified nature of bladder Hydrocephalus (HCC)- Primary Obstructive hydrocephalus 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 Type 1 diabetes mellitus with hyperglycemia ([facility]) Type I (juvenile type) diabetes mellitus without [...] Primary Communicating hydrocephalus [facility] Diagnosis Pre-op evaluation- Primary Preoperative [...] Other hydrocephalus (HCC) [facility] Diagnosis Pre-op evaluation- Primary Preoperative examination, [...] Other ill-defined conditions [facility] Diagnosis Pre-op evaluation- Primary Preoperative examination, [...] 1 diabetes mellitus with unspecified complications (HCC) shelter (current) use of antibiotics Muscle spasm of left lower extremity Therapeutic drug monitoring Encounter for therapeutic drug monitoring [facility] Diagnosis Pre-op evaluation- Primary Preoperative examination, [...] use of insulin 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 Spasm of muscle Myelitis ([facility]) Unspecified cause of encephalitis, myelitis, and encephalomyelitis Impaired mobility and activities of daily living Other ill-defined conditions [facility] Diagnosis Pre-op evaluation- Primary Preoperative examination, [...] Malignant neoplasm of urinary bladder, unspecified site ([facility]) Class 1 obesity with body mass index (BMI) of 32.0 to 32.9 in adult, unspecified obesity type, unspecified whether serious comorbidity present Type 1 diabetes mellitus with other specified complication ([facility]) Asthma, unspecified asthma severity, unspecified whether complicated, unspecified whether persistent Hypertension, unspecified type Palpitations Neoplasm of bladder Neoplasm of unspecified nature of bladder Hydrocephalus ([facility])- Primary Obstructive hydrocephalus 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 Type 1 diabetes mellitus with hyperglycemia ([facility]) Type I (juvenile type) diabetes mellitus without [...] Primary [facility] Diagnosis Pre-op evaluation- Primary Preoperative examination, [...] Other hydrocephalus (HCC) [facility]* Diagnosis Pre-op evaluation- Primary Preoperative [...] Primary [facility] Diagnosis Pre-op evaluation- Primary Preoperative examination, [...] Other ill-defined conditions [facility] Diagnosis Pre-op evaluation- Primary Preoperative examination, [...] Other hydrocephalus (HCC) [facility] Diagnosis Pre-op evaluation- Primary Preoperative examination, [...] hydrocephalus (HCC)- Primary documented in this encounter [facility] note* Diagnosis Pre-op evaluation- Primary Preoperative examination, [...] initial encounter- Primary documented in this encounter [facility] note* Diagnosis Pre-op evaluation- Primary Preoperative examination, [...] Pressure injury of coccygeal region, stage 2 ([facility]) Preop exam for internal medicine Other specified pre-operative examination Pressure injury of deep tissue of left heel Alteration in self-care ability Debility, unspecified Impaired mobility Other ill-defined conditions Risk for falls Personal history of fall S/P exploratory laparotomy Other postprocedural status Pressure injury of deep tissue of left foot Long-term insulin use ([facility]) Encounter for long-term (current) use of insulin Closed fracture of distal end of left femur, unspecified fracture morphology, initial encounter ([facility])- Primary [facility] Diagnosis Pre-op evaluation- Primary Preoperative examination, [...] closed, initial encounter [facility] Diagnosis Pre-op evaluation- Primary Preoperative examination, [...] site (HCC)- Primary [facility] Diagnosis Severe pain- Primary [facility] Diagnosis Pre-op evaluation- Primary Preoperative examination, [...] neoplasm of bladder documented in this encounter [facility] note* Diagnosis Pre-op evaluation- Primary Preoperative examination, [...] Other hydrocephalus (HCC) [facility] Diagnosis Pre-op evaluation- Primary Preoperative examination, [...] Solitary pulmonary nodule [facility] Diagnosis Pre-op evaluation- Primary Preoperative examination, [...] (HCC) Communicating hydrocephalus [facility] Diagnosis Pre-op evaluation- Primary Preoperative examination, [...] of senile cataract [facility] Diagnosis Pre-op evaluation- Primary Preoperative examination, [...] of senile cataract [facility] Diagnosis Pre-op evaluation- Primary Preoperative examination, [...] tissue of left foot Long-term insulin use ([facility]) Encounter for long-term (current) use of insulin Tibia/fibula fracture, left, closed, initial encounter Combined forms of age-related cataract of left eye- Primary Other and combined forms of senile cataract Combined forms of age-related cataract of right eye Other and combined forms of senile cataract [facility] Diagnosis Pre-op evaluation- Primary Preoperative examination, [...] left femur, unspecified fracture morphology, initial encounter ([facility])- Primary Combined forms of age-related cataract of left eye- Primary Other and combined forms of senile cataract Combined forms of age-related cataract of right eye Other and combined forms of senile cataract [facility] Diagnosis Pre-op evaluation- Primary Preoperative examination, [...] tissue of left foot Long-term insulin use ([facility]) Encounter for long-term (current) use of insulin Combined forms of age-related cataract of right eye- Primary Other and combined forms of senile cataract Combined forms of age-related cataract of left eye Other and combined forms of senile cataract Epiretinal membrane (ERM) of both eyes Posterior vitreous detachment of both eyes Vitreous degeneration 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, left eye ([facility]) Type 1 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, right eye ([facility]) Combined forms of age-related cataract of right eye Other and combined forms of senile cataract Combined forms of age-related cataract of left eye Other and combined forms of senile cataract documented in this [facility] N[facility]ative - Reported* Type Description Date Medical History DM 1 Medical HistoryOBESITYMedical HistoryASTHMASurgical HistoryORIF R ANKLE FRACTURE 2000Surgical HistoryRIGHT OOPHERECTOMY FOR CYSTHospitalization HistoryFOR SURGERIES [facility] Other History general Narrative - ReportedNosoutheast [facility] myDrugCosts Other History general Narrative - Reported* Type Description Date Medical History DM 1 Medical HistoryOBESITYMedical HistoryASTHMASurgical HistoryORIF R ANKLE FRACTURE 2000Surgical HistoryRIGHT OOPHERECTOMY FOR CYSTSurgical HistoryT5 intradural bx and placement of EV/2022Surgical HistoryVP shunt placement Hospitalization HistoryFOR SURGERIES [facility] Other Hospital course Narrative No data available for this section [facility] No data available for this section [facility] HospitalProgress note Author Marjorie Headley [facility] September 28, 2022 1:43pmNote Date/TimeJune 2022 1:43[place] [address] Wound Center Provider Note Signed Patient: Chikis Tobar MR#: [id number] : 1965 Acct:[id number] Age/Sex: 57 / F Copies to: Juliette Berumen,DO Marjorie Headley APRN~ HPI Date of Visit Date of Visit: Date of Service: 09/28/2022 Time of Service: 13:42 Narrative HPI: 08/08/22 Chikis is a 57 year old female presenting to [facility] wound care program for an initial [...] wound start?: May 2022 Mode of Arrival/ Air Brakes Inspector: Family Assistive Device Used Today: Walker Lives with:: Multiple Family Members Appetite Description: Within Normal Limits Who helps w/ dressing change?: Family Why Do You Need Help?: Can't Reach Ulcer Smoking Status: Never smoker [facility] Medical History (Updated 09/28/22 @ 13:43 by [...] 0 CM Sq: 0.000 Surrounding Tissue Appearance: Blanca Surrounding Tissue Temp: Warm Drainage Amount: None [...] <Electronically signed by STEVEN Headley> 09/28/22 1343 [facility] Work Phone: Progress note No data available for this section [facility] for [facility] (narrative)* Diagnostic Procedure Only (Routine) - Pending ReviewSpecialtyDiagnoses / Procedures Referred By ContactReferred To ContactMOLECULAR & FUNCTIONAL IMAGING Diagnoses Early satiety Nausea Procedures NM GASTRIC EMPTYING SOLID GASTRIC EMPTYING STUDY Jose Schmid APRN.SUPERVISOR NET MAKING [address] [place] [address] Molecular & Functional Imaging [address] [phone] Referral IDStatusReasonStart DateExpiration DateVisits RequestedVisits [id number] Review Auto-Generated Referral * Outpatient Procedure (Routine) - AuthorizedSpecialtyDiagnoses / Procedures Referred By ContactReferred To [facility] Diagnoses Encounter for screening for malignant neoplasm of colon Procedures COLONOSCOPY SCREENING COLONOSCOPY FLX DX W/COLLJ SPEC WHEN Jose Joyner APRN.SUPERVISOR NET MAKING [address] [phone] [facility] [address] [place] [address] Referral IDStatusReasonStart DateExpiration DateVisits RequestedVisits [id number] Auto-Generated Referral * Outpatient Procedure (Routine) - AuthorizedSpecialtyDiagnoses / Procedures Referred By ContactReferred To [facility] Diagnoses Nausea and vomiting, unspecified vomiting type Procedures EGD DIAGNOSTIC ESOPHAGOGASTRODUODENOSCOPY TRANSORAL DIAGNOSTIC Jose Schmid APRN.SUPERVISOR NET MAKING [address] [place] [address] [facility] [address] [place] [address] Referral IDStatusReasonStart DateExpiration DateVisits RequestedVisits [id number] Auto-Generated Referral [facility] for referral (narrative)* Outpatient Procedure (Routine) - ClosedSpecialtyDiagnoses / ProceduresReferred By ContactReferred To [facility] Diagnoses Encounter for screening for malignant neoplasm of colon Procedures COLONOSCOPY SCREENING COLONOSCOPY FLX DX W/COLLJ SPEC WHEN Jose Joyner APRN.SUPERVISOR NET MAKING [address] [place] [address] [facility] [place] [address] [phone] Referral IDStatusReasonLublin DateExpiration DateVisits RequestedVisits [id number] Auto-Generated Referral * Outpatient Procedure (Routine) - ClosedSpecialtyDiagnoses / ProceduresReferred By ContactReferred To [facility] [place] Diagnoses Nausea and vomiting, unspecified vomiting type Procedures EGD DIAGNOSTIC ESOPHAGOGASTRODUODENOSCOPY TRANSORAL DIAGNOSTIC Jose Schmid APRN.CNP [address] [place] [address] [place] [address] Referral [facility]StatusRe[facility] DateExpiration DateVisits RequestedVisits [id number] Auto-Generated Referral [facility] for referral (narrative)* Diagnostic Procedure Only (Routine) - Pending ReviewSpecialtyDiagnoses / ProceduresReferred By Contact Referred To ContactXR IMAGING Diagnoses Small bowel obstruction (HCC) Procedures XR GI SMALL BOWEL FOLLOW-THRU RADIOLOGIC SMALL INTESTINE FOLLOW-THROUGH STUDY Peterson Gonsalez MD [address] [place] [address] Xr Imaging Referral IDStatusReasonLublin DateExpiration DateVisits RequestedVisits [id number] Review Auto-Generated Referral * Diagnostic Procedure Only (Routine) - Pending ReviewSpecialtyDiagnoses / ProceduresReferred By ContactReferred To ContactXR IMAGING Diagnoses Small bowel obstruction (HCC) Procedures XR UPPER GI SINGLE CONTRAST RADIOLOGIC EXAM UPR GI TRC SINGLE CONTRAST STUDY Peterson Gonsalez MD [address] [place] [address] Xr Imaging Referral IDStatusReasonStart DateExpiration DateVisits RequestedVisits [id number] Review Auto-Generated Referral [facility] for referral (narrative)* Diagnostic Procedure Only (Routine) - AuthorizedSpecialtyDiagnoses / ProceduresReferred By Contact Referred To ContactXR IMAGING Diagnoses Closed nondisplaced transverse fracture of left patella, initial encounter Procedures XR KNEE LIMITED 2V AP/LAT LEFT RADIOLOGIC EXAMINATION KNEE 1/2 VIEWS Aashish Monge PA-C [address] [place] [address] Xr Imaging [address] [address] Referral IDStatusReasonSttheriot DateExpiration DateVisits RequestedVisits [id number] Auto-Generated Referral [facility] for referral (narrative)* Diagnostic Procedure Only (Routine) - Pending ReviewSpecialtyDiagnoses / ProceduresReferred By Contact Referred To ContactUS IMAGING Diagnoses History of bladder cancer Procedures US KIDNEY/BLADDER US RETROPERITONEAL REAL TIME W/IMAGE COMPLETE Molly Hendrickson APRN.CNP [address] [place] [address] Us Imaging [address] [address] Referral IDStatusReasonStart DateExpiration DateVisits RequestedVisits [id number] Review Auto-Generated Referral [facility] for referral (narrative)* Diagnostic Procedure Only (Routine) - New RequestSpecialtyDiagnoses / ProceduresReferred By Contact Referred To ContactXR IMAGING Diagnoses Tibia/fibula fracture, left, closed, initial encounter Procedures XR TIBIA FIBULA 2V AP/LAT LEFT RADIOLOGIC EXAMINATION TIBIA & FIBULA 2 VIEWS Aashish Monge PA-C [address] [place] [address] Xr Imaging [address] [address] Referral IDStatusRelake regional health systemSttheriot DateExpiration DateVisits RequestedVisits [id number] Request Auto-Generated Referral / [facility] for referral (narrative)* Outpatient Procedure (Routine) - New RequestSpecialtyDiagnoses / ProceduresReferred By ContactReferred To [facility] Diagnoses Spasticity Procedures EMG(NEURO/NI) NERVE CONDUCTION STUDIES 9-[place] [address] [place] [address] Neurological [place] [address] [place] [address] Referral IDStatGreen Cross [facility] DateExpiration DateVisits RequestedVisits [id number] Request Auto-Generated Referral [facility] for referral (narrative)No reason for referral information availableOhiohealth [facility] Work Phone: Reason for visit Narrative* Outpatient Procedure (Routine) - ClosedSpecialtyDiagnoses / ProceduresReferred By ContactReferred To [facility] Diagnoses Encounter for screening for malignant neoplasm of colon Procedures COLONOSCOPY SCREENING COLONOSCOPY FLX DX W/COLLJ SPEC WHEN PFRMD Jose Schmid, BACK UP SCAN COORDINATOR.SUPERVISOR NET MAKING [address] [place] [address] [facility] [place] [address] [place] [address] Referral IDStatusReasonSttheriot DateExpiration DateVisits RequestedVisits [id number] Auto-Generated Referral / [facility] for visit Narrative* Diagnostic Procedure Only (Routine) - ClosedSpecialtyDiagnoses / ProceduresReferred By ContactReferred To Contact XR IMAGING Diagnoses Closed nondisplaced transverse fracture of left patella, initial encounter Procedures XR KNEE LIMITED 2V AP/LAT LEFT RADIOLOGIC EXAMINATION KNEE 1/2 VIEWS Aashish Monge PA-C [address] [place] [address] Xr Imaging [address] [address] Referral IDStatusReasonStart DateExpiration DateVisits RequestedVisits [id number] Auto-Generated Referral / [facility] for visit Narrative* Diagnostic Procedure Only (Routine) - ClosedSpecialtyDiagnoses / ProceduresReferred By ContactReferred To Contact US IMAGING Diagnoses History of bladder cancer Procedures US KIDNEY/BLADDER US RETROPERITONEAL REAL TIME W/IMAGE COMPLETE Molly Hendrickson APRN.SUPERVISOR NET MAKING [address] [place] [address] Us Imaging [address] [address] Referral IDStatusReasonStart DateExpiration DateVisits RequestedVisits [id number] Auto-Generated Referral / [facility] for visit Narrative* Diagnostic Procedure Only (Routine) - ClosedSpecialtyDiagnoses / ProceduresReferred By ContactReferred To Contact XR IMAGING Diagnoses Tibia/fibula fracture, left, closed, initial encounter Procedures XR TIBIA FIBULA 2V AP/LAT LEFT RADIOLOGIC EXAMINATION TIBIA & FIBULA 2 VIEWS Aashish Monge PA-C [address] [place] [address] Xr Imaging [address] [address] [address] Referral IDStatusReasonStart DateExpiration DateVisits RequestedVisits [id number] Auto-Generated Referral / [facility] for visit Narrative* Diagnostic Procedure Only (Routine) - ClosedSpecialtyDiagnoses / ProceduresReferred By ContactReferred To Contact XR IMAGING Diagnoses Tibia/fibula fracture, left, closed, initial encounter Procedures XR TIBIA FIBULA 2V AP/LAT LEFT RADIOLOGIC EXAMINATION TIBIA & FIBULA 2 VIEWS Aashish Monge PA-C [address] [place] [address] Xr Imaging [address] [address] [address] Referral IDStatusReasonSttheriot DateExpiration DateVisits RequestedVisits [id number] Auto-Generated Referral / [facility] for visit Narrative* Diagnostic Procedure Only (Routine) - ClosedSpecialtyDiagnoses / ProceduresReferred By ContactReferred To Contact Radiology / [facility] Diagnoses Cervicalgia MRI BRAIN WO/W IVCON MRI CERVICAL SPINE WO/W IVCON MRI LUMBAR SPINE PRE-OP LOCALIZATION W IVCON MRI THORACIC SPINE WO/W IVCON Cervicalgia [M54.2] Procedures MRI BRAIN BRAIN STEM W/O W/CONTRAST MATERIAL MRI SPINAL CANAL THORACIC W/O & W/CONTR MATRL MRI SPINAL CANAL CERVICAL W/O & W/CONTR MATRL UNLISTED MAGNETIC RESONANCE PROCED MRI WWO NEU1 B 300 Jamie Mccarty MD [address] [place] [address] Radio Mri [facility] [address] [place] [address] Referral IDStatusReasonStart DateExpiration DateVisits RequestedVisits [id number]/19/202412/ [facility] for visit Narrative* Diagnostic Procedure Only (Routine) - ClosedSpecialtyDiagnoses / ProceduresReferred By ContactReferred To Contact XR IMAGING Diagnoses Tibia/fibula fracture, left, closed, initial encounter Procedures XR FEMUR GENERAL 2V AP/LAT LEFT RADIOLOGIC EXAMINATION FEMUR MINIMUM [address] [place] [address] [place] [address] Phone: tel: fax: XR IMAGING [address] [address] [address] Referral IDStatusReasonStart DateExpiration DateVisits RequestedVisits [id number] Auto-Generated Referral / [facility] for visit Narrative* Diagnostic Procedure Only (Routine) - ClosedSpecialtyDiagnoses / ProceduresReferred By ContactReferred To Contact XR IMAGING Diagnoses Tibia/fibula fracture, left, closed, initial encounter Procedures XR FEMUR GENERAL 2V AP/LAT LEFT RADIOLOGIC EXAMINATION FEMUR MINIMUM [address] [place] [address] [place] [address] Phone: tel: fax: [place] [address] Referral IDStatusReasonStart DateExpiration DateVisits RequestedVisits [id number] Auto-Generated Referral / [facility] Advance Directives No Advanced Directives Records FoundDocuments [...] Date/ Time Advance Directives No June 28 018 10:37am TypeDate RecordedPatient RepresentativeExplanationAdvance Directive(s)01/10/2022 11:16 [...] at 1515, Until Sun09/21/21 at 1515 New Bag/Syringe/Kubnid0509/21/2021 3:15 PM [id number] mLMedication OrderMAR Action Action DateDoseRateSite cefTRIAXone 1 g intramuscular injection (ROCEPHIN) 1 g, INTRAMUSCULAR, ONCE (UP TO 30 DAYS AMB), 1 dose, On Sun01/30/22 at 0800, Please document the antimicrobial indication: Prophylaxis Given01/30/2022 9:52 AM EDT1 YoonutKarime davidson Reason for Referral SpecialtyDiagnoses / ProceduresReferred By ContactReferred To ContactCT IMAGING Diagnoses History of bladder cancer Abdominal pain, unspecified abdominal location Procedures CT ABD/PEL W IVCON CT ABD & PELVIS W/CONTRAST Peterson Gonsalez MD [address] [place] [address] Ct Imaging Referral IDStatusReasonStart DateExpiration DateVisits RequestedVisits [id number] Review Auto-Generated Referral /[id number] / ProceduresReferred By ContactReferred To ContactCT IMAGING Diagnoses Malignant neoplasm of urinary bladder, unspecified site (HCC) Procedures CT UROGRAM WO/W IVCON CT ABD & PELVIS W/O CONTRST 1+ BODY REGNS Peterson Gonsalez MD [address] [place] [address] Ct Imaging Referral IDStatusReasonStart DateExpiration DateVisits RequestedVisits [id number] Review Auto-Generated Referral /[id number] / ProceduresReferred By ContactReferred To ContactCT IMAGING Diagnoses Malignant neoplasm of urinary bladder, unspecified site (HCC) Procedures CT CHEST W IVCON DIAGNOSTIC COMPUTED TOMOGRAPHY THORAX W/CONTRAST Peterson Gonsalez MD [address] [place] [address] Ct Imaging Referral IDStatusReasonStart DateExpiration DateVisits RequestedVisits [id number] Review Auto-Generated Referral /[id number] IDStatusReasonStart DateExpiration DateVisits RequestedVisits [id number] Review Auto-Generated Referral /[id number] / ProceduresReferred By ContactReferred To ContactREHAB AND SPORTS THERAPY INS Diagnoses Chronic low back pain without sciatica, unspecified back pain laterality Procedures CONSULT TO PHYSICAL THERAPY PHYSICAL THERAPY EVALUATION HIGH COMPLEX 45 [place] [address] [place] [address] [facility] [place] [address] [place] [address] Referral IDStatusReasonStart DateExpiration DateVisits RequestedVisits [id number] Review Auto-Generated Referral [id number] / ProceduresReferred By ContactReferred To ContactCT IMAGING Diagnoses History of bladder cancer Procedures CT CHEST W IVCON DIAGNOSTIC COMPUTED TOMOGRAPHY THORAX W/CONTRAST Peterson Gonsalez MD [address] [place] [address] Ct Imaging Referral IDStatusReasonStart DateExpiration DateVisits RequestedVisits [id number] Review Auto-Generated Referral [id number] / ProceduresReferred By ContactReferred To ContactCT IMAGING Diagnoses History of bladder cancer Procedures CT UROGRAM WO/W IVCON CT ABD & PELVIS W/O CONTRST 1+ BODY REGPeterson Negron MD [address] [place] [address] Ct Imaging Referral IDStatusReasonStart DateExpiration DateVisits RequestedVisits [id number] Review Auto-Generated Referral [id number] / ProceduresReferred By ContactReferred To Contact Diagnoses History of bladder cancer Procedures CONSULT TO PALLIATIVE CARE OFFICE/[facility]PAT[facility]-74 MINUTES Peterson Gonsalez MD [address] [place] [address] Referral IDStatusReasonStart DateExpiration DateVisits RequestedVisits [id number] PCP Requested Referral /[id number] / ProceduresReferred By ContactReferred To ContactMR IMAGING Diagnoses Cervicalgia Procedures MRI THORACIC SPINE WO/W IVCON MRI SPINAL CANAL THORACIC W/O & W/CONTR Jamie Miller MD [address] [place] [address] Mr Imaging Referral IDStatusReasonStart DateExpiration DateVisits RequestedVisits [id number] Review Auto-Generated Referral [id number] / ProceduresReferred By ContactReferred To ContactMR IMAGING Diagnoses Cervicalgia Procedures MRI CERVICAL SPINE WO/W IVCON MRI SPINAL CANAL CERVICAL W/O & W/CONTR MATRL Jamie Mccarty MD [address] [place] [address] Mr Imaging Referral IDStatusReasonStart DateExpiration DateVisits RequestedVisits [id number] Review Auto-Generated Referral [id number] / ProceduresReferred By ContactReferred To ContactMR IMAGING Diagnoses Cervicalgia Procedures MRI BRAIN WO/W IVCON MRI BRAIN BRAIN STEM W/O W/CONTRAST MATERIAL Jamie Mccarty MD [address] [id number] Mr Imaging Referral IDStatusReasonStart DateExpiration DateVisits RequestedVisits [id number] Review Auto-Generated Referral [id number] / ProceduresReferred By ContactReferred To ContactCT IMAGING Diagnoses Other hydrocephalus (HCC) Procedures CT BRAIN WO IVCON CT HEAD/BRAIN W/O CONTRAST MATERIAL Con Oconnor MD [address] [place] [address] Ct Imaging Referral IDStatusReasonStart DateExpiration DateVisits RequestedVisits [id number] Review Auto-Generated Referral OON/Self Pay Override [id number] / ProceduresReferred By ContactReferred To ContactCT IMAGING Diagnoses Other hydrocephalus (HCC) Procedures CT BRAIN WO IVCON CT HEAD/BRAIN W/O CONTRAST MATERIAL Marlene Cordero PA-C [address] [place] [address] Ct Imaging Referral IDStatusReasonStart DateExpiration DateVisits RequestedVisits [id number] Review Auto-Generated Referral /[id number] IDStatusReasonStart DateExpiration DateVisits RequestedVisits [id number] Review Auto-Generated Referral /[id number] IDStatusReasonStart DateExpiration DateVisits RequestedVisits [id number] Auto-Generated Referral [id number] / ProceduresReferred By ContactReferred To ContactCT IMAGING Diagnoses Other hydrocephalus (HCC) Procedures CT BRAIN WO IVCON CT HEAD/BRAIN W/O CONTRAST MATERIAL Marlene Cordero PA-C [address] [place] [address] Ct Imaging [place] [address] Referral IDStatusReasonStart DateExpiration DateVisits RequestedVisits [id number] Review Auto-Generated Referral /[id number] / ProceduresReferred By ContactReferred To ContactCT IMAGING Diagnoses History of bladder cancer Procedures CT CHEST W IVCON DIAGNOSTIC COMPUTED TOMOGRAPHY THORAX W/CONTRAST Peterson Gonsalez MD [address] [place] [address] Ct Imaging [place] [address] Referral IDStatusReasonStart DateExpiration DateVisits RequestedVisits [id number] Review Auto-Generated Referral /[id number] / ProceduresReferred By ContactReferred To ContactCT IMAGING Diagnoses History of bladder cancer Procedures CT UROGRAM WO/W IVCON CT ABD & PELVIS W/O CONTRST 1+ BODY REGNS Peterson Gonsalez MD [address] [place] [address] Ct Imaging [place] [address] Referral IDStatusReasonStart DateExpiration DateVisits RequestedVisits [id number] Review Auto-Generated Referral /[id number] / ProceduresReferred By ContactReferred To ContactREHAB AND SPORTS THERAPY INS Diagnoses Closed nondisplaced transverse fracture of left patella, initial encounter Procedures CONSULT TO PHYSICAL THERAPY PHYSICAL THERAPY EVALUATION HIGH COMPLEX 45 MINS Aashish Monge PA-C [address] [place] [address] [facility] [place] [address] [place] [address] Referral IDStatusReasonStart DateExpiration DateVisits RequestedVisits [id number] Review Auto-Generated Referral /[id number] / ProceduresReferred By ContactReferred To ContactXR IMAGING Diagnoses Closed nondisplaced transverse fracture of left patella, initial encounter Procedures XR KNEE LIMITED 2V AP/LAT LEFT RADIOLOGIC EXAMINATION KNEE 1/2 VIEWS Aashish Monge PA-C [address] [place] [address] Xr Imaging [place] [address] Referral IDStatusReasonStart DateExpiration DateVisits RequestedVisits [id number] Review Auto-Generated Referral [id number] / ProceduresReferred By ContactReferred To ContactRadiology Diagnoses 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) Procedures CT HEAD W/O CONTRAST Daniel Figueroa MD [address] [place] [address] [place] [address] [facility] CT SCAN Referral IDStatusReasonStart DateExpiration DateVisits RequestedVisits [id number] Review/[id number] / ProceduresReferred By ContactReferred To Contact Diagnoses Intraoperative ureteral injury Procedures DME SUPPLY OR ACCESSORY, NOS Arlene Chambers MD [address] [place] [address] [employer] [address] [place] [address] Referral IDStatusReasonStart DateExpiration DateVisits RequestedVisits [id number] Continuity of Care [id number] / ProceduresReferred By ContactReferred To ContactRadiology Diagnoses 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) Procedures DOWNLOAD POWERSHARE IMAGES TO [facility] Neurosurgery [address] [place] [address] [facility] DIAGNOSTIC RADIOLOGY [address] [place] [address] [place] [address] Referral IDStatusReasonStart DateExpiration DateVisits RequestedVisits [id number] Review/[id number] / ProceduresReferred By ContactReferred To ContactRadiology Diagnoses 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) Procedures CT NEURO IMAGE IMPORT(LYNNETTE) DOWNLOAD POWERSHARE IMAGES TO [facility] Daniel Figueroa MD [address] [place] [address] [place] [address] [facility] DIAGNOSTIC RADIOLOGY [address] [place] [address] [place] [address] Referral IDStatusReasonStart DateExpiration DateVisits RequestedVisits [id number]/13/20245/028635VjysixmwoPyycsprmo / Procedures Referred By ContactReferred To ContactNeurology Diagnoses Other hydrocephalus (HCC) Procedures CONSULT TO NEUROLOGY OFFICE/OUTPATIENT [facility] 60 MINUTES Marlene Cordero PA-C [address] [place] [address] Referral IDStatusReasonStart DateExpiration DateVisits RequestedVisits [id number] Review PCP Requested Referral /[id number] IDStatusReasonStart DateExpiration DateVisits RequestedVisits [id number] Review Auto-Generated Referral /[id number] / ProceduresReferred By ContactReferred To ContactCT IMAGING Diagnoses Communicating hydrocephalus (HCC) Procedures CT BRAIN STEREOLOCAL WO IVCON CT GUIDANCE STEREOTACTIC LOCALIZATION Marlene Cordero PA-C [address] [place] [address] Ct Imaging [place] [address] Referral IDStatusReasonStart DateExpiration DateVisits RequestedVisits [id number] Review Auto-Generated Referral [id number] / ProceduresReferred By ContactReferred To Contact Diagnoses Communicating hydrocephalus (HCC) Procedures REFER TO PACC - PRE ANESTHESIA CONSULTATION CLINIC OFFICE/OUTPATIENT NEW HIGH MDM 60 MINUTES Marlene Cordero PA-C [address] [address] [id number] Referral IDStatusReasonStart DateExpiration DateVisits RequestedVisits [id number] Review PCP Requested Referral [id number] / ProceduresReferred By ContactReferred To ContactMR IMAGING Diagnoses Communicating hydrocephalus (HCC) Procedures MRI BRAIN LOCALIZATION WO/W IVCON MRI BRAIN BRAIN STEM W/O W/CONTRAST MATERIAL Marlene Cordero PA-C [address] [id number] [facility] [place] [address] Referral IDStatusReasonStart DateExpiration DateVisits RequestedVisits [id number] Review Auto-Generated Referral [id number] / ProceduresReferred By ContactReferred To [facility] Diagnoses Communicating hydrocephalus (HCC) Procedures ECG COMPLETE ECG ROUTINE ECG W/LEAST 12 LDS W/I&R Marlene Cordero PA-C [address] [id number] [facility] [address] [place] [address] Referral IDStatusReasonStart DateExpiration DateVisits RequestedVisits [id number] Review Auto-Generated Referral [id number] / ProceduresReferred By ContactReferred To ContactCT IMAGING Diagnoses History of bladder cancer Procedures CT CHEST W IVCON DIAGNOSTIC COMPUTED TOMOGRAPHY THORAX W/CONTRAST Molly Hendrickson APRN.[employer] [address] [place] [address] Ct [facility] [place] [address] Referral IDStatusReasonStart DateExpiration DateVisits RequestedVisits [id number] Review Auto-Generated Referral [id number] / ProceduresReferred By ContactReferred To ContactCT IMAGING Diagnoses History of bladder cancer Procedures CT UROGRAM WO/W IVCON CT ABD & PELVIS W/WO CONTRST 1+ BODY REGNS Molly Hendrickson APRN.[employer] [address] [id number] [facility] [place] [address] Referral IDStatusReasonStart DateExpiration DateVisits RequestedVisits [id number] Review Auto-Generated Referral [id number] / ProceduresReferred By ContactReferred To ContactUS IMAGING Diagnoses History of bladder cancer Procedures US KIDNEY/BLADDER US RETROPERITONEAL REAL TIME W/IMAGE COMPLETE Molly Hendrickson APRN.[employer] [address] [place] [address] Us Imaging [place] [address] Referral IDStatusReasonStart DateExpiration DateVisits RequestedVisits [id number] Review Auto-Generated Referral [id number] / ProceduresReferred By ContactReferred To ContactMR IMAGING Diagnoses Hydrocephalus, adult (HCC) Meningitis, fungal Weakness of both lower extremities Spasticity Procedures MRI THORACIC SPINE WO/W IVCON MRI SPINAL CANAL THORACIC W/O & W/CONTR Tonie Abbott MD [address] [place] [address] Mr [facility] [place] [address] Referral IDStatusReasonStart DateExpiration DateVisits RequestedVisits [id number] Review Auto-Generated Referral [id number] / ProceduresReferred By ContactReferred To ContactMR IMAGING Diagnoses Hydrocephalus, adult (HCC) Meningitis, fungal Weakness of both lower extremities Spasticity Procedures MRI CERVICAL SPINE WO/W IVCON MRI SPINAL CANAL CERVICAL W/O & W/CONTR MATRL Tonie Rosado MD [address] [address] Mr [facility] [place] [address] Referral IDStatusReasonStart DateExpiration DateVisits RequestedVisits [id number] Review Auto-Generated Referral /[id number] / ProceduresReferred By ContactReferred To ContactMR IMAGING Diagnoses Benign intracranial hypertension Procedures MRI BRAIN WO/W IVCON MRI BRAIN BRAIN STEM W/O W/CONTRAST MATERIAL Tonie Rosado MD [address] [address] Mr [facility] [place] [address] Referral IDStatusReasonStart DateExpiration DateVisits RequestedVisits [id number] Review Auto-Generated Referral /[id number] IDStatusReasonStart DateExpiration DateVisits RequestedVisits [id number] Review Auto-Generated Referral /[id number] IDStatusReasonStart DateExpiration DateVisits RequestedVisits [id number] Review PCP Requested Referral /[id number] IDStatusReasonStart DateExpiration DateVisits RequestedVisits [id number] Review Auto-Generated Referral /[id number] IDStatusReasonStart DateExpiration DateVisits RequestedVisits [id number] Review Auto-Generated Referral /[id number] / ProceduresReferred By ContactReferred To Contact Diagnoses Spasticity Procedures CONSULT TO [facility] OFFICE/OUTPATIENT [facility] 60 MINUTES Marlene Cordero, KATJA [address] [place] [address] Referral IDStatusReasonStart DateExpiration DateVisits RequestedVisits [id number] Review PCP Requested Referral 1Referral IDStatusReasonStart DateExpiration DateVisits RequestedVisits [id number] Auto-Generated Referral [id number] / ProceduresReferred By ContactReferred To Contact Diagnoses Other hydrocephalus (HCC) Procedures PROVIDER ORDERED FOLLOW UP OFFICE/OUTPATIENT [facility] 60 MINUTES Reggie Butler MD [address] [place] [address] Referral IDStatusReasonStart DateExpiration DateVisits RequestedVisits [id number] Review PCP Requested Referral 1Referral IDStatusReasonStart DateExpiration DateVisits RequestedVisits [id number] Auto-Generated Referral 1Referral IDStatusReasonStart DateExpiration DateVisits RequestedVisits [id number] Auto-Generated Referral [id number] / ProceduresReferred By ContactReferred To Contact IMAGING Diagnoses Cervicalgia Procedures MRI THORACIC SPINE WO/W IVCON MRI SPINAL CANAL THORACIC W/O & W/CONTR Jamie Miller MD [address] [place] [address] Imaging [place] [address] Referral IDStatusReasonStart DateExpiration DateVisits RequestedVisits [id number] Auto-Generated Referral Clearance Not Met - Admin/Fashion Buyer/Director Advise to Postpone/Reschedule or Not Proceed /[id number] / ProceduresReferred By ContactReferred To ContactMR IMAGING Diagnoses Cervicalgia Procedures MRI CERVICAL SPINE WO/W IVCON MRI SPINAL CANAL CERVICAL W/O & W/CONTR Jamie Miller MD [address] [place] [address] Mr Imaging [place] [address] Referral IDStatusReasonStart DateExpiration DateVisits RequestedVisits [id number] Auto-Generated Referral /[id number] / ProceduresReferred By ContactReferred To ContactMR IMAGING Diagnoses Cervicalgia Procedures MRI BRAIN WO/W IVCON MRI BRAIN BRAIN STEM W/O W/CONTRAST MATERIAL Jamie Mccarty MD [address] [place] [address] Mr Imaging [place] [address] Referral IDStatusReasonStart DateExpiration DateVisits RequestedVisits [id number] Auto-Generated Referral /[id number] IDStatusReasonStart DateExpiration DateVisits RequestedVisits [id number] Auto-Generated Referral /[id number] IDStatusReasonStart DateExpiration DateVisits RequestedVisits [id number] Auto-Generated Referral /[id number] IDStatusReasonStart DateExpiration DateVisits RequestedVisits [id number] Auto-Generated Referral /[id number] / ProceduresReferred By ContactReferred To ContactCT IMAGING Diagnoses Other hydrocephalus (HCC) Procedures CT BRAIN WO IVCON CT HEAD/BRAIN W/O CONTRAST MATERIAL Con Oconnor MD [address] [place] [address] Ct [facility] [place] [address] Referral IDStatusReasonStart DateExpiration DateVisits RequestedVisits [id number] Auto-Generated Referral OON/Self Pay Override /[id number] IDStatusReasonStart DateExpiration DateVisits RequestedVisits [id number] Review Auto-Generated Referral [id number] / ProceduresReferred By ContactReferred To ContactCT IMAGING Diagnoses History of bladder cancer Abdominal pain, unspecified abdominal location Procedures CT ABD/PEL W IVCON CT ABD & PELVIS W/CONTRAST Peterson Gonsalez MD [address] [place] [address] Ct [facility] [place] [address] Referral IDStatusReasonStart DateExpiration DateVisits RequestedVisits [id number] Auto-Generated Referral eferral IDStatusReasonStart DateExpiration DateVisits RequestedVisits [id number] Auto-Generated Referral [id number] / ProceduresReferred By ContactReferred To ContactCT IMAGING Diagnoses Malignant neoplasm of urinary bladder, unspecified site (HCC) Procedures CT CHEST WO IVCON CAT SCAN OF CHEST Peterson Gonsalez MD [address] [place] [address] Ct [facility] [place] [address] Referral IDStatusReasonStart DateExpiration DateVisits RequestedVisits [id number] Auto-Generated Referral Referral IDStatusReasonStart DateExpiration DateVisits RequestedVisits [id number] Review Auto-Generated Referral /[id number] / ProceduresReferred By ContactReferred To ContactNeurology Diagnoses Spasticity Procedures CONSULT TO NEUROLOGY OFFICE/OUTPATIENT [facility] 60 MINUTES Marlene Cordero PA-C [address] [place] [address] Referral IDStatusReasonStart DateExpiration DateVisits RequestedVisits [id number] Review PCP Requested Referral [id number] / ProceduresReferred By ContactReferred To ContactPodiatry Diagnoses Ulcer of left foot, unspecified ulcer stage (HCC) Procedures CONSULT TO PODIATRY OFFICE/OUTPATIENT [facility] 60 MINUTES Jamie Mccarty MD [address] [place] [address] Referral IDStatusReasonStart DateExpiration DateVisits RequestedVisits [id number] Review PCP Requested Referral [id number] / ProceduresReferred By ContactReferred To Contact Diagnoses History of ileal conduit Procedures DME SUPPLY OR ACCESSORY, [facility] [address] [place] [address] [employer] [address] [place] [address] Referral IDStatusReasonStart DateExpiration DateVisits RequestedVisits [id number] Continuity of Care [id number] / ProceduresReferred By ContactReferred To Contact Diagnoses Small bowel obstruction (HCC) Kelsey Victoria PA-C [address] [place] [address] [place] [address] Referral IDStatusReasonStart DateExpiration DateVisits RequestedVisits [id number]/28/20243/[id number] / Procedures Referred By ContactReferred To Contact Diagnoses Ureter injury, initial encounter Procedures URETEROLYSIS, W/WO REPOSITIONING, URETER, RETROPERITONEAL FIBROSIS Arlene Chambers MD [address] [place], [place] [address] Referral IDStatusReasonStart DateExpiration DateVisits RequestedVisits [id number] Review507206EstekyohaEvywzyjhk / ProceduresReferred By ContactReferred To Contact Diagnoses History of ileal conduit Ureter injury, initial encounter Procedures URETEROENTEROSTOMY, DIRECT ANASTOMOSIS, URETER TO INTESTINE Arlene Chambers MD [address] [place], [place] [address] Referral IDStatusReasonStart DateExpiration DateVisits RequestedVisits [id number] Review/[id number] / ProceduresReferred By ContactReferred To Contact Diagnoses Communicating hydrocephalus (HCC) Spasticity Procedures PROVIDER ORDERED FOLLOW UP OFFICE/OUTPATIENT [facility] 60 MINUTES Reggie Butler MD [address] [place] [address] Referral IDStatusReasonStart DateExpiration DateVisits RequestedVisits [id number] Review PCP Requested Referral /[id number] IDStatusReasonStart DateExpiration DateVisits RequestedVisits [id number] Auto-Generated Referral / Chief Complaint and Reason [...] stage 3 Chief Complaint Er Follow Up- [facility] F/U Chief Complaint [facility] F/U LEFT EAR PAINReason for VisitHTN [...] stoma infection May 22, 2 025 11:55am L97.521 E10.65 E10.51 M79.89 May [...] 2024 2:25pm Type 1 diabetes mellitus May 20, 2 025 2:25pm Abrasion of abdominal wall May 22, 2024 11:55am 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 May 11:55am Pressure injury of left heel, unstageabl e May 22, 2024 11:55am Spastic diplegia, acquired, lower extrem ity May 22, 2024 11:55am Chief Complaint Admit Date lymphadema April 29, 2024 1 :15pm possible stoma infection May 22, 2 025 11:55am L97.521 E10.65 E10.51 M79.89 May [...] 2024 1 :15pm possible stoma infection May 22, 025 11:55am L97.521 E10.65 E10.51 M79.89 May [...] injury of left heel, stage 3 Ma h 2024 3:20pm Pressure injury of left heel, [...] 2:51pm Impaired mobility and ADLs July 24 025 2:51pm Lymphedema July 24, 2024 2:5 1pm [...] Open Wound July 31, 2024 11: 01am [facility] ER; nausea/vomiting August 05, 2024 2:07pm Reason [...] left heel, stage 3 Ap ril 2024 11:01am Wound infection July 31, 2024 [...] 3 Ap ril 2024 2:07pm Spastic hypertonia August 05, 2024 2:0 7pm Transitional cell bladder cancer July [...] injury of left heel, stage 3 Se pt2024 11:22am Spastic hypertonia December 26, 2024 11:22am [...] section and content) DATE CREATED AUTHOR 06/15/2019 [facility] DATE CREATED AUTHOR AUTHOR'S ORGANIZ ATION 02/12/2021 [facility] DATE CREATED AUTHOR AUTHOR'S ORGANIZ ATION 03/01/2022 [facility] DATE CREATED AUTHOR AUTHOR'S ORGANIZ ATION 06/09/2022 [facility] DATE CREATED AUTHOR AUTHOR'S ORGANIZ ATION 09/26/2022 [facility] DATE CREATED AUTHOR AUTHOR'S ORGANIZ ATION 12/19/2022 [facility]3] DATE CREATED AUTHOR AUTHOR'S ORGANIZ ATION 09/04/2023 [facility] DATE CREATED AUTHOR AUTHOR'S ORGANIZ ATION 10/12/2023 [facility] DATE CREATED AUTHOR AUTHOR'S ORGANIZ ATION 03/20/2024 [facility] DATE CREATED AUTHOR AUTHOR'S ORGANIZ ATION 09/19/2024 [facility] DATE CREATED AUTHOR AUTHOR'S ORGANIZ ATION 01/28/2025 [facility] DATE CREATED AUTHOR AUTHOR'S ORGANIZ ATION 02/13/2025 [facility] DATE CREATED AUTHOR AUTHOR'S ORGANIZ ATION 02/23/2025 [facility] Source Comments (unrecognize d section and content) In the event this informatio n is protected by the Federal Confidentiality of Alcohol and Drug Abuse Patient Records regulations: The Federal rules restrict any use of the information to criminally investigate or prosecute any alcohol or drug abuse patient.[facility] the event this information is protected by the Federal Confidentiality of Alcohol and Drug Abuse Patient Records regulations: The Federal rules restrict any use of the information to criminally investigate or prosecute any alcohol or drug abuse patient.[facility] the event this information is protected by the Federal Confidentiality of Alcohol and Drug Abuse Patient Records regulations: The Federal rules restrict any use of the information to criminally investigate or prosecute any alcohol or drug abuse patient.[facility] the event this information is protected by the Federal Confidentiality of Alcohol and Drug Abuse Patient Records regulations: The Federal rules restrict any use of the information to criminally investigate or prosecute any alcohol or drug abuse patient.[facility] the event this information is protected by the Federal Confidentiality of Alcohol and Drug Abuse Patient Records regulations: The Federal rules restrict any use of the information to criminally investigate or prosecute any alcohol or drug abuse patient.[facility] the event this information is protected by the Federal Confidentiality of Alcohol and Drug Abuse Patient Records regulations: The Federal rules restrict any use of the information to criminally investigate or prosecute any alcohol or drug abuse patient.[facility] the event this information is protected by the Federal Confidentiality of Alcohol and Drug Abuse Patient Records regulations: The Federal rules restrict any use of the information to criminally investigate or prosecute any alcohol or drug abuse patient.[facility] the event this information is protected by the Federal Confidentiality of Alcohol and Drug Abuse Patient Records regulations: The Federal rules restrict any use of the information to criminally investigate or prosecute any alcohol or drug abuse patient.[facility] the event this information is protected by the Federal Confidentiality of Alcohol and Drug Abuse Patient Records regulations: The Federal rules restrict any use of the information to criminally investigate or prosecute any alcohol or drug abuse patient.[facility] the event this information is protected by the Federal Confidentiality of Alcohol and Drug Abuse Patient Records regulations: The Federal rules restrict any use of the information to criminally investigate or prosecute any alcohol or drug abuse patient.[facility] the event this information is protected by the Federal Confidentiality of Alcohol and Drug Abuse Patient Records regulations: The Federal rules restrict any use of the information to criminally investigate or prosecute any alcohol or drug abuse patient.[facility] the event this information is protected by the Federal Confidentiality of Alcohol and Drug Abuse Patient Records regulations: The Federal rules restrict any use of the information to criminally investigate or prosecute any alcohol or drug abuse patient.[facility] the event this information is protected by the Federal Confidentiality of Alcohol and Drug Abuse Patient Records regulations: The Federal rules restrict any use of the information to criminally investigate or prosecute any alcohol or drug abuse patient.[facility] the event this information is protected by the Federal Confidentiality of Alcohol and Drug Abuse Patient Records regulations: The Federal rules restrict any use of the information to criminally investigate or prosecute any alcohol or drug abuse patient.[facility] the event this information is protected by the Federal Confidentiality of Alcohol and Drug Abuse Patient Records regulations: The Federal rules restrict any use of the information to criminally investigate or prosecute any alcohol or drug abuse patient.[facility] the event this information is protected by the Federal Confidentiality of Alcohol and Drug Abuse Patient Records regulations: The Federal rules restrict any use of the information to criminally investigate or prosecute any alcohol or drug abuse patient.[facility] the event this information is protected by the Federal Confidentiality of Alcohol and Drug Abuse Patient Records regulations: The Federal rules restrict any use of the information to criminally investigate or prosecute any alcohol or drug abuse patient.[facility] the event this information is protected by the Federal Confidentiality of Alcohol and Drug Abuse Patient Records regulations: The Federal rules restrict any use of the information to criminally investigate or prosecute any alcohol or drug abuse patient.[facility] the event this information is protected by the Federal Confidentiality of Alcohol and Drug Abuse Patient Records regulations: The Federal rules restrict any use of the information to criminally investigate or prosecute any alcohol or drug abuse patient.[facility] the event this information is protected by the Federal Confidentiality of Alcohol and Drug Abuse Patient Records regulations: The Federal rules restrict any use of the information to criminally investigate or prosecute any alcohol or drug abuse patient.[facility] the event this information is protected by the Federal Confidentiality of Alcohol and Drug Abuse Patient Records regulations: The Federal rules restrict any use of the information to criminally investigate or prosecute any alcohol or drug abuse patient.[facility] the event this information is protected by the Federal Confidentiality of Alcohol and Drug Abuse Patient Records regulations: The Federal rules restrict any use of the information to criminally investigate or prosecute any alcohol or drug abuse patient.[facility] the event this information is protected by the Federal Confidentiality of Alcohol and Drug Abuse Patient Records regulations: The Federal rules restrict any use of the information to criminally investigate or prosecute any alcohol or drug abuse patient.[facility] the event this information is protected by the Federal Confidentiality of Alcohol and Drug Abuse Patient Records regulations: The Federal rules restrict any use of the information to criminally investigate or prosecute any alcohol or drug abuse patient.[facility] the event this information is protected by the Federal Confidentiality of Alcohol and Drug Abuse Patient Records regulations: The Federal rules restrict any use of the information to criminally investigate or prosecute any alcohol or drug abuse patient.[facility] the event this information is protected by the Federal Confidentiality of Alcohol and Drug Abuse Patient Records regulations: The Federal rules restrict any use of the information to criminally investigate or prosecute any alcohol or drug abuse patient.[facility] the event this information is protected by the Federal Confidentiality of Alcohol and Drug Abuse Patient Records regulations: The Federal rules restrict any use of the information to criminally investigate or prosecute any alcohol or drug abuse patient.[facility] the event this information is protected by the Federal Confidentiality of Alcohol and Drug Abuse Patient Records regulations: The Federal rules restrict any use of the information to criminally investigate or prosecute any alcohol or drug abuse patient.[facility] the event this information is protected by the Federal Confidentiality of Alcohol and Drug Abuse Patient Records regulations: The Federal rules restrict any use of the information to criminally investigate or prosecute any alcohol or drug abuse patient.[facility] the event this information is protected by the Federal Confidentiality of Alcohol and Drug Abuse Patient Records regulations: The Federal rules restrict any use of the information to criminally investigate or prosecute any alcohol or drug abuse patient.[facility] the event this information is protected by the Federal Confidentiality of Alcohol and Drug Abuse Patient Records regulations: The Federal rules restrict any use of the information to criminally investigate or prosecute any alcohol or drug abuse patient.[facility] the event this information is protected by the Federal Confidentiality of Alcohol and Drug Abuse Patient Records regulations: The Federal rules restrict any use of the information to criminally investigate or prosecute any alcohol or drug abuse patient.[facility] the event this information is protected by the Federal Confidentiality of Alcohol and Drug Abuse Patient Records regulations: The Federal rules restrict any use of the information to criminally investigate or prosecute any alcohol or drug abuse patient.[facility]In the event this information is protected by the Federal Confidentiality of Alcohol and Drug Abuse Patient Records regulations: The Federal rules restrict any use of the information to criminally investigate or prosecute any alcohol or drug abuse patient.[facility] the event this information is protected by the Federal Confidentiality of Alcohol and Drug Abuse Patient Records regulations: The Federal rules restrict any use of the information to criminally investigate or prosecute any alcohol or drug abuse patient.[facility] HospitalIn the event this information is protected by the Federal Confidentiality of Alcohol and Drug Abuse Patient Records regulations: The Federal rules restrict any use of the information to criminally investigate or prosecute any alcohol or drug abuse patient.[facility]In the event this information is protected by the Federal Confidentiality of Alcohol and Drug Abuse Patient Records regulations: The Federal rules restrict any use of the information to criminally investigate or prosecute any alcohol or drug abuse patient.[facility]In the event this information is protected by the Federal Confidentiality of Alcohol and Drug Abuse Patient Records regulations: The Federal rules restrict any use of the information to criminally investigate or prosecute any alcohol or drug abuse patient.[facility]In the event this information is protected by the Federal Confidentiality of Alcohol and Drug Abuse Patient Records regulations: The Federal rules restrict any use of the information to criminally investigate or prosecute any alcohol or drug abuse patient.[facility]In the event this information is protected by the Federal Confidentiality of Alcohol and Drug Abuse Patient Records regulations: The Federal rules restrict any use of the information to criminally investigate or prosecute any alcohol or drug abuse patient.[facility]In the event this information is protected by the Federal Confidentiality of Alcohol and Drug Abuse Patient Records regulations: The Federal rules restrict any use of the information to criminally investigate or prosecute any alcohol or drug abuse patient.[facility]In the event this information is protected by the Federal Confidentiality of Alcohol and Drug Abuse Patient Records regulations: The Federal rules restrict any use of the information to criminally investigate or prosecute any alcohol or drug abuse patient.[facility]In the event this information is protected by the Federal Confidentiality of Alcohol and Drug Abuse Patient Records regulations: The Federal rules restrict any use of the information to criminally investigate or prosecute any alcohol or drug abuse patient.[facility]In the event this information is protected by the Federal Confidentiality of Alcohol and Drug Abuse Patient Records regulations: The Federal rules restrict any use of the information to criminally investigate or prosecute any alcohol or drug abuse patient.[facility]In the event this information is protected by the Federal Confidentiality of Alcohol and Drug Abuse Patient Records regulations: The Federal rules restrict any use of the information to criminally investigate or prosecute any alcohol or drug abuse patient.[facility]In the event this information is protected by the Federal Confidentiality of Alcohol and Drug Abuse Patient Records regulations: The Federal rules restrict any use of the information to criminally investigate or prosecute any alcohol or drug abuse patient.[facility]In the event this information is protected by the Federal Confidentiality of Alcohol and Drug Abuse Patient Records regulations: The Federal rules restrict any use of the information to criminally investigate or prosecute any alcohol or drug abuse patient.[facility]In the event this information is protected by the Federal Confidentiality of Alcohol and Drug Abuse Patient Records regulations: The Federal rules restrict any use of the information to criminally investigate or prosecute any alcohol or drug abuse patient.[facility]In the event this information is protected by the Federal Confidentiality of Alcohol and Drug Abuse Patient Records regulations: The Federal rules restrict any use of the information to criminally investigate or prosecute any alcohol or drug abuse patient.[facility]In the event this information is protected by the Federal Confidentiality of Alcohol and Drug Abuse Patient Records regulations: The Federal rules restrict any use of the information to criminally investigate or prosecute any alcohol or drug abuse patient.[facility]In the event this information is protected by the Federal Confidentiality of Alcohol and Drug Abuse Patient Records regulations: The Federal rules restrict any use of the information to criminally investigate or prosecute any alcohol or drug abuse patient.[facility]In the event this information is protected by the Federal Confidentiality of Alcohol and Drug Abuse Patient Records regulations: The Federal rules restrict any use of the information to criminally investigate or prosecute any alcohol or drug abuse patient.[facility]In the event this information is protected by the Federal Confidentiality of Alcohol and Drug Abuse Patient Records regulations: The Federal rules restrict any use of the information to criminally investigate or prosecute any alcohol or drug abuse patient.[facility]In the event this information is protected by the Federal Confidentiality of Alcohol and Drug Abuse Patient Records regulations: The Federal rules restrict any use of the information to criminally investigate or prosecute any alcohol or drug abuse patient.[facility] the event this information is protected by the Federal Confidentiality of Alcohol and Drug Abuse Patient Records regulations: The Federal rules restrict any use of the information to criminally investigate or prosecute any alcohol or drug abuse patient.[facility]In the event this information is protected by the Federal Confidentiality of Alcohol and Drug Abuse Patient Records regulations: The Federal rules restrict any use of the information to criminally investigate or prosecute any alcohol or drug abuse patient.[facility]In the event this information is protected by the Federal Confidentiality of Alcohol and Drug Abuse Patient Records regulations: The Federal rules restrict any use of the information to criminally investigate or prosecute any alcohol or drug abuse patient.[facility]In the event this information is protected by the Federal Confidentiality of Alcohol and Drug Abuse Patient Records regulations: The Federal rules restrict any use of the information to criminally investigate or prosecute any alcohol or drug abuse patient.[facility]In the event this information is protected by the Federal Confidentiality of Alcohol and Drug Abuse Patient Records regulations: The Federal rules restrict any use of the information to criminally investigate or prosecute any alcohol or drug abuse patient.[facility]In the event this information is protected by the Federal Confidentiality of Alcohol and Drug Abuse Patient Records regulations: The Federal rules restrict any use of the information to criminally investigate or prosecute any alcohol or drug abuse patient.[facility]In the event this information is protected by the Federal Confidentiality of Alcohol and Drug Abuse Patient Records regulations: The Federal rules restrict any use of the information to criminally investigate or prosecute any alcohol or drug abuse patient.[facility]In the event this information is protected by the Federal Confidentiality of Alcohol and Drug Abuse Patient Records regulations: The Federal rules restrict any use of the information to criminally investigate or prosecute any alcohol or drug abuse patient.[facility]In the event this information is protected by the Federal Confidentiality of Alcohol and Drug Abuse Patient Records regulations: The Federal rules restrict any use of the information to criminally investigate or prosecute any alcohol or drug abuse patient.[facility]In the event this information is protected by the Federal Confidentiality of Alcohol and Drug Abuse Patient Records regulations: The Federal rules restrict any use of the information to criminally investigate or prosecute any alcohol or drug abuse patient.[facility]In the event this information is protected by the Federal Confidentiality of Alcohol and Drug Abuse Patient Records regulations: The Federal rules restrict any use of the information to criminally investigate or prosecute any alcohol or drug abuse patient.[facility]In the event this information is protected by the Federal Confidentiality of Alcohol and Drug Abuse Patient Records regulations: The Federal rules restrict any use of the information to criminally investigate or prosecute any alcohol or drug abuse patient.[facility]In the event this information is protected by the Federal Confidentiality of Alcohol and Drug Abuse Patient Records regulations: The Federal rules restrict any use of the information to criminally investigate or prosecute any alcohol or drug abuse patient.[facility]In the event this information is protected by the Federal Confidentiality of Alcohol and Drug Abuse Patient Records regulations: The Federal rules restrict any use of the information to criminally investigate or prosecute any alcohol or drug abuse patient.[facility]In the event this information is protected by the Federal Confidentiality of Alcohol and Drug Abuse Patient Records regulations: The Federal rules restrict any use of the information to criminally investigate or prosecute any alcohol or drug abuse patient.[facility]In the event this information is protected by the Federal Confidentiality of Alcohol and Drug Abuse Patient Records regulations: The Federal rules restrict any use of the information to criminally investigate or prosecute any alcohol or drug abuse patient.[facility]In the event this information is protected by the Federal Confidentiality of Alcohol and Drug Abuse Patient Records regulations: The Federal rules restrict any use of the information to criminally investigate or prosecute any alcohol or drug abuse patient.[facility]In the event this information is protected by the Federal Confidentiality of Alcohol and Drug Abuse Patient Records regulations: The Federal rules restrict any use of the information to criminally investigate or prosecute any alcohol or drug abuse patient.[facility]In the event this information is protected by the Federal Confidentiality of Alcohol and Drug Abuse Patient Records regulations: The Federal rules restrict any use of the information to criminally investigate or prosecute any alcohol or drug abuse patient.[facility]In the event this information is protected by the Federal Confidentiality of Alcohol and Drug Abuse Patient Records regulations: The Federal rules restrict any use of the information to criminally investigate or prosecute any alcohol or drug abuse patient.[facility]In the event this information is protected by the Federal Confidentiality of Alcohol and Drug Abuse Patient Records regulations: The Federal rules restrict any use of the information to criminally investigate or prosecute any alcohol or drug abuse patient.[facility]In the event this information is protected by the Federal Confidentiality of Alcohol and Drug Abuse Patient Records regulations: The Federal rules restrict any use of the information to criminally investigate or prosecute any alcohol or drug abuse patient.[facility]In the event this information is protected by the Federal Confidentiality of Alcohol and Drug Abuse Patient Records regulations: The Federal rules restrict any use of the information to criminally investigate or prosecute any alcohol or drug abuse patient.[facility]In the event this information is protected by the Federal Confidentiality of Alcohol and Drug Abuse Patient Records regulations: The Federal rules restrict any use of the information to criminally investigate or prosecute any alcohol or drug abuse patient.[facility]In the event this information is protected by the Federal Confidentiality of Alcohol and Drug Abuse Patient Records regulations: The Federal rules restrict any use of the information to criminally investigate or prosecute any alcohol or drug abuse patient.[facility]In the event this information is protected by the Federal Confidentiality of Alcohol and Drug Abuse Patient Records regulations: The Federal rules restrict any use of the information to criminally investigate or prosecute any alcohol or drug abuse patient.[facility]In the event this information is protected by the Federal Confidentiality of Alcohol and Drug Abuse Patient Records regulations: The Federal rules restrict any use of the information to criminally investigate or prosecute any alcohol or drug abuse patient.[facility]In the event this information is protected by the Federal Confidentiality of Alcohol and Drug Abuse Patient Records regulations: The Federal rules restrict any use of the information to criminally investigate or prosecute any alcohol or drug abuse patient.[facility]In the event this information is protected by the Federal Confidentiality of Alcohol and Drug Abuse Patient Records regulations: The Federal rules restrict any use of the information to criminally investigate or prosecute any alcohol or drug abuse patient.[facility]In the event this information is protected by the Federal Confidentiality of Alcohol and Drug Abuse Patient Records regulations: The Federal rules restrict any use of the information to criminally investigate or prosecute any alcohol or drug abuse patient.[facility]In the event this information is protected by the Federal Confidentiality of Alcohol and Drug Abuse Patient Records regulations: The Federal rules restrict any use of the information to criminally investigate or prosecute any alcohol or drug abuse patient.[facility]In the event this information is protected by the Federal Confidentiality of Alcohol and Drug Abuse Patient Records regulations: The Federal rules restrict any use of the information to criminally investigate or prosecute any alcohol or drug abuse patient.[facility]In the event this information is protected by the Federal Confidentiality of Alcohol and Drug Abuse Patient Records regulations: The Federal rules restrict any use of the information to criminally investigate or prosecute any alcohol or drug abuse patient.[facility]In the event this information is protected by the Federal Confidentiality of Alcohol and Drug Abuse Patient Records regulations: The Federal rules restrict any use of the information to criminally investigate or prosecute any alcohol or drug abuse patient.[facility]In the event this information is protected by the Federal Confidentiality of Alcohol and Drug Abuse Patient Records regulations: The Federal rules restrict any use of the information to criminally investigate or prosecute any alcohol or drug abuse patient.[facility]In the event this information is protected by the Federal Confidentiality of Alcohol and Drug Abuse Patient Records regulations: The Federal rules restrict any use of the information to criminally investigate or prosecute any alcohol or drug abuse patient.[facility]In the event this information is protected by the Federal Confidentiality of Alcohol and Drug Abuse Patient Records regulations: The Federal rules restrict any use of the information to criminally investigate or prosecute any alcohol or drug abuse patient.[facility]In the event this information is protected by the Federal Confidentiality of Alcohol and Drug Abuse Patient Records regulations: The Federal rules restrict any use of the information to criminally investigate or prosecute any alcohol or drug abuse patient.[facility]In the event this information is protected by the Federal Confidentiality of Alcohol and Drug Abuse Patient Records regulations: The Federal rules restrict any use of the information to criminally investigate or prosecute any alcohol or drug abuse patient.[facility]In the event this information is protected by the Federal Confidentiality of Alcohol and Drug Abuse Patient Records regulations: The Federal rules restrict any use of the information to criminally investigate or prosecute any alcohol or drug abuse patient.[facility]In the event this information is protected by the Federal Confidentiality of Alcohol and Drug Abuse Patient Records regulations: The Federal rules restrict any use of the information to criminally investigate or prosecute any alcohol or drug abuse patient.[facility]In the event this information is protected by the Federal Confidentiality of Alcohol and Drug Abuse Patient Records regulations: The Federal rules restrict any use of the information to criminally investigate or prosecute any alcohol or drug abuse patient.[facility]In the event this information is protected by the Federal Confidentiality of Alcohol and Drug Abuse Patient Records regulations: The Federal rules restrict any use of the information to criminally investigate or prosecute any alcohol or drug abuse patient.[facility]In the event this information is protected by the Federal Confidentiality of Alcohol and Drug Abuse Patient Records regulations: The Federal rules restrict any use of the information to criminally investigate or prosecute any alcohol or drug abuse patient.[facility]In the event this information is protected by the Federal Confidentiality of Alcohol and Drug Abuse Patient Records regulations: The Federal rules restrict any use of the information to criminally investigate or prosecute any alcohol or drug abuse patient.[facility]In the event this information is protected by the Federal Confidentiality of Alcohol and Drug Abuse Patient Records regulations: The Federal rules restrict any use of the information to criminally investigate or prosecute any alcohol or drug abuse patient.[facility]In the event this information is protected by the Federal Confidentiality of Alcohol and Drug Abuse Patient Records regulations: The Federal rules restrict any use of the information to criminally investigate or prosecute any alcohol or drug abuse patient.[facility]In the event this information is protected by the Federal Confidentiality of Alcohol and Drug Abuse Patient Records regulations: The Federal rules restrict any use of the information to criminally investigate or prosecute any alcohol or drug abuse patient.[facility]In the event this information is protected by the Federal Confidentiality of Alcohol and Drug Abuse Patient Records regulations: The Federal rules restrict any use of the information to criminally investigate or prosecute any alcohol or drug abuse patient.[facility]In the event this information is protected by the Federal Confidentiality of Alcohol and Drug Abuse Patient Records regulations: The Federal rules restrict any use of the information to criminally investigate or prosecute any alcohol or drug abuse patient.[facility] the event this information is protected by the Federal Confidentiality of Alcohol and Drug Abuse Patient Records regulations: The Federal rules restrict any use of the information to criminally investigate or prosecute any alcohol or drug abuse patient.[facility]In the event this information is protected by the Federal Confidentiality of Alcohol and Drug Abuse Patient Records regulations: The Federal rules restrict any use of the information to criminally investigate or prosecute any alcohol or drug abuse patient.[facility]In the event this information is protected by the Federal Confidentiality of Alcohol and Drug Abuse Patient Records regulations: The Federal rules restrict any use of the information to criminally investigate or prosecute any alcohol or drug abuse patient.[facility]In the event this information is protected by the Federal Confidentiality of Alcohol and Drug Abuse Patient Records regulations: The Federal rules restrict any use of the information to criminally investigate or prosecute any alcohol or drug abuse patient.[facility]In the event this information is protected by the Federal Confidentiality of Alcohol and Drug Abuse Patient Records regulations: The Federal rules restrict any use of the information to criminally investigate or prosecute any alcohol or drug abuse patient.[facility]In the event this information is protected by the Federal Confidentiality of Alcohol and Drug Abuse Patient Records regulations: The Federal rules restrict any use of the information to criminally investigate or prosecute any alcohol or drug abuse patient.[facility]In the event this information is protected by the Federal Confidentiality of Alcohol and Drug Abuse Patient Records regulations: The Federal rules restrict any use of the information to criminally investigate or prosecute any alcohol or drug abuse patient.[facility]In the event this information is protected by the Federal Confidentiality of Alcohol and Drug Abuse Patient Records regulations: The Federal rules restrict any use of the information to criminally investigate or prosecute any alcohol or drug abuse patient.[facility]In the event this information is protected by the Federal Confidentiality of Alcohol and Drug Abuse Patient Records regulations: The Federal rules restrict any use of the information to criminally investigate or prosecute any alcohol or drug abuse patient.[facility]In the event this information is protected by the Federal Confidentiality of Alcohol and Drug Abuse Patient Records regulations: The Federal rules restrict any use of the information to criminally investigate or prosecute any alcohol or drug abuse patient.[facility]In the event this information is protected by the Federal Confidentiality of Alcohol and Drug Abuse Patient Records regulations: The Federal rules restrict any use of the information to criminally investigate or prosecute any alcohol or drug abuse patient.[facility]In the event this information is protected by the Federal Confidentiality of Alcohol and Drug Abuse Patient Records regulations: The Federal rules restrict any use of the information to criminally investigate or prosecute any alcohol or drug abuse patient.[facility]In the event this information is protected by the Federal Confidentiality of Alcohol and Drug Abuse Patient Records regulations: The Federal rules restrict any use of the information to criminally investigate or prosecute any alcohol or drug abuse patient.[facility]In the event this information is protected by the Federal Confidentiality of Alcohol and Drug Abuse Patient Records regulations: The Federal rules restrict any use of the information to criminally investigate or prosecute any alcohol or drug abuse patient.[facility]In the event this information is protected by the Federal Confidentiality of Alcohol and Drug Abuse Patient Records regulations: The Federal rules restrict any use of the information to criminally investigate or prosecute any alcohol or drug abuse patient.[facility]In the event this information is protected by the Federal Confidentiality of Alcohol and Drug Abuse Patient Records regulations: The Federal rules restrict any use of the information to criminally investigate or prosecute any alcohol or drug abuse patient.[facility]In the event this information is protected by the Federal Confidentiality of Alcohol and Drug Abuse Patient Records regulations: The Federal rules restrict any use of the information to criminally investigate or prosecute any alcohol or drug abuse patient.[facility]In the event this information is protected by the Federal Confidentiality of Alcohol and Drug Abuse Patient Records regulations: The Federal rules restrict any use of the information to criminally investigate or prosecute any alcohol or drug abuse patient.[facility]In the event this information is protected by the Federal Confidentiality of Alcohol and Drug Abuse Patient Records regulations: The Federal rules restrict any use of the information to criminally investigate or prosecute any alcohol or drug abuse patient.[facility]In the event this information is protected by the Federal Confidentiality of Alcohol and Drug Abuse Patient Records regulations: The Federal rules restrict any use of the information to criminally investigate or prosecute any alcohol or drug abuse patient.[facility]In the event this information is protected by the Federal Confidentiality of Alcohol and Drug Abuse Patient Records regulations: The Federal rules restrict any use of the information to criminally investigate or prosecute any alcohol or drug abuse patient.[facility]In the event this information is protected by the Federal Confidentiality of Alcohol and Drug Abuse Patient Records regulations: The Federal rules restrict any use of the information to criminally investigate or prosecute any alcohol or drug abuse patient.[facility]In the event this information is protected by the Federal Confidentiality of Alcohol and Drug Abuse Patient Records regulations: The Federal rules restrict any use of the information to criminally investigate or prosecute any alcohol or drug abuse patient.[facility]In the event this information is protected by the Federal Confidentiality of Alcohol and Drug Abuse Patient Records regulations: The Federal rules restrict any use of the information to criminally investigate or prosecute any alcohol or drug abuse patient.[facility]In the event this information is protected by the Federal Confidentiality of Alcohol and Drug Abuse Patient Records regulations: The Federal rules restrict any use of the information to criminally investigate or prosecute any alcohol or drug abuse patient.[facility]In the event this information is protected by the Federal Confidentiality of Alcohol and Drug Abuse Patient Records regulations: The Federal rules restrict any use of the information to criminally investigate or prosecute any alcohol or drug abuse patient.[facility]In the event this information is protected by the Federal Confidentiality of Alcohol and Drug Abuse Patient Records regulations: The Federal rules restrict any use of the information to criminally investigate or prosecute any alcohol or drug abuse patient.[facility]In the event this information is protected by the Federal Confidentiality of Alcohol and Drug Abuse Patient Records regulations: The Federal rules restrict any use of the information to criminally investigate or prosecute any alcohol or drug abuse patient.[facility]In the event this information is protected by the Federal Confidentiality of Alcohol and Drug Abuse Patient Records regulations: The Federal rules restrict any use of the information to criminally investigate or prosecute any alcohol or drug abuse patient.[facility]In the event this information is protected by the Federal Confidentiality of Alcohol and Drug Abuse Patient Records regulations: The Federal rules restrict any use of the information to criminally investigate or prosecute any alcohol or drug abuse patient.[facility]In the event this information is protected by the Federal Confidentiality of Alcohol and Drug Abuse Patient Records regulations: The Federal rules restrict any use of the information to criminally investigate or prosecute any alcohol or drug abuse patient.[facility]In the event this information is protected by the Federal Confidentiality of Alcohol and Drug Abuse Patient Records regulations: The Federal rules restrict any use of the information to criminally investigate or prosecute any alcohol or drug abuse patient.[facility]In the event this information is protected by the Federal Confidentiality of Alcohol and Drug Abuse Patient Records regulations: The Federal rules restrict any use of the information to criminally investigate or prosecute any alcohol or drug abuse patient.[facility]In the event this information is protected by the Federal Confidentiality of Alcohol and Drug Abuse Patient Records regulations: The Federal rules restrict any use of the information to criminally investigate or prosecute any alcohol or drug abuse patient.[facility]In the event this information is protected by the Federal Confidentiality of Alcohol and Drug Abuse Patient Records regulations: The Federal rules restrict any use of the information to criminally investigate or prosecute any alcohol or drug abuse patient.[facility]In the event this information is protected by the Federal Confidentiality of Alcohol and Drug Abuse Patient Records regulations: The Federal rules restrict any use of the information to criminally investigate or prosecute any alcohol or drug abuse patient.[facility]In the event this information is protected by the Federal Confidentiality of Alcohol and Drug Abuse Patient Records regulations: The Federal rules restrict any use of the information to criminally investigate or prosecute any alcohol or drug abuse patient.[facility]In the event this information is protected by the Federal Confidentiality of Alcohol and Drug Abuse Patient Records regulations: The Federal rules restrict any use of the information to criminally investigate or prosecute any alcohol or drug abuse patient.[facility]In the event this information is protected by the Federal Confidentiality of Alcohol and Drug Abuse Patient Records regulations: The Federal rules restrict any use of the information to criminally investigate or prosecute any alcohol or drug abuse patient.[facility]In the event this information is protected by the Federal Confidentiality of Alcohol and Drug Abuse Patient Records regulations: The Federal rules restrict any use of the information to criminally investigate or prosecute any alcohol or drug abuse patient.[facility]In the event this information is protected by the Federal Confidentiality of Alcohol and Drug Abuse Patient Records regulations: The Federal rules restrict any use of the information to criminally investigate or prosecute any alcohol or drug abuse patient.[facility]In the event this information is protected by the Federal Confidentiality of Alcohol and Drug Abuse Patient Records regulations: The Federal rules restrict any use of the information to criminally investigate or prosecute any alcohol or drug abuse patient.[facility]In the event this information is protected by the Federal Confidentiality of Alcohol and Drug Abuse Patient Records regulations: The Federal rules restrict any use of the information to criminally investigate or prosecute any alcohol or drug abuse patient.[facility]In the event this information is protected by the Federal Confidentiality of Alcohol and Drug Abuse Patient Records regulations: The Federal rules restrict any use of the information to criminally investigate or prosecute any alcohol or drug abuse patient.[facility]In the event this information is protected by the Federal Confidentiality of Alcohol and Drug Abuse Patient Records regulations: The Federal rules restrict any use of the information to criminally investigate or prosecute any alcohol or drug abuse patient.[facility]In the event this information is protected by the Federal Confidentiality of Alcohol and Drug Abuse Patient Records regulations: The Federal rules restrict any use of the information to criminally investigate or prosecute any alcohol or drug abuse patient.[facility]In the event this information is protected by the Federal Confidentiality of Alcohol and Drug Abuse Patient Records regulations: The Federal rules restrict any use of the information to criminally investigate or prosecute any alcohol or drug abuse patient.[facility]In the event this information is protected by the Federal Confidentiality of Alcohol and Drug Abuse Patient Records regulations: The Federal rules restrict any use of the information to criminally investigate or prosecute any alcohol or drug abuse patient.[facility]In the event this information is protected by the Federal Confidentiality of Alcohol and Drug Abuse Patient Records regulations: The Federal rules restrict any use of the information to criminally investigate or prosecute any alcohol or drug abuse patient.[facility]In the event this information is protected by the Federal Confidentiality of Alcohol and Drug Abuse Patient Records regulations: The Federal rules restrict any use of the information to criminally investigate or prosecute any alcohol or drug abuse patient.[facility] the event this information is protected by the Federal Confidentiality of Alcohol and Drug Abuse Patient Records regulations: The Federal rules restrict any use of the information to criminally investigate or prosecute any alcohol or drug abuse patient.[facility]In the event this information is protected by the Federal Confidentiality of Alcohol and Drug Abuse Patient Records regulations: The Federal rules restrict any use of the information to criminally investigate or prosecute any alcohol or drug abuse patient.[facility]In the event this information is protected by the Federal Confidentiality of Alcohol and Drug Abuse Patient Records regulations: The Federal rules restrict any use of the information to criminally investigate or prosecute any alcohol or drug abuse patient.[facility]In the event this information is protected by the Federal Confidentiality of Alcohol and Drug Abuse Patient Records regulations: The Federal rules restrict any use of the information to criminally investigate or prosecute any alcohol or drug abuse patient.[facility]In the event this information is protected by the Federal Confidentiality of Alcohol and Drug Abuse Patient Records regulations: The Federal rules restrict any use of the information to criminally investigate or prosecute any alcohol or drug abuse patient.[facility]In the event this information is protected by the Federal Confidentiality of Alcohol and Drug Abuse Patient Records regulations: The Federal rules restrict any use of the information to criminally investigate or prosecute any alcohol or drug abuse patient.[facility]In the event this information is protected by the Federal Confidentiality of Alcohol and Drug Abuse Patient Records regulations: The Federal rules restrict any use of the information to criminally investigate or prosecute any alcohol or drug abuse patient.[facility]In the event this information is protected by the Federal Confidentiality of Alcohol and Drug Abuse Patient Records regulations: The Federal rules restrict any use of the information to criminally investigate or prosecute any alcohol or drug abuse patient.[facility]In the event this information is protected by the Federal Confidentiality of Alcohol and Drug Abuse Patient Records regulations: The Federal rules restrict any use of the information to criminally investigate or prosecute any alcohol or drug abuse patient.[facility]In the event this information is protected by the Federal Confidentiality of Alcohol and Drug Abuse Patient Records regulations: The Federal rules restrict any use of the information to criminally investigate or prosecute any alcohol or drug abuse patient.[facility]In the event this information is protected by the Federal Confidentiality of Alcohol and Drug Abuse Patient Records regulations: The Federal rules restrict any use of the information to criminally investigate or prosecute any alcohol or drug abuse patient.[facility]In the event this information is protected by the Federal Confidentiality of Alcohol and Drug Abuse Patient Records regulations: The Federal rules restrict any use of the information to criminally investigate or prosecute any alcohol or drug abuse patient.[facility]In the event this information is protected by the Federal Confidentiality of Alcohol and Drug Abuse Patient Records regulations: The Federal rules restrict any use of the information to criminally investigate or prosecute any alcohol or drug abuse patient.[facility]In the event this information is protected by the Federal Confidentiality of Alcohol and Drug Abuse Patient Records regulations: The Federal rules restrict any use of the information to criminally investigate or prosecute any alcohol or drug abuse patient.[facility]In the event this information is protected by the Federal Confidentiality of Alcohol and Drug Abuse Patient Records regulations: The Federal rules restrict any use of the information to criminally investigate or prosecute any alcohol or drug abuse patient.[facility]In the event this information is protected by the Federal Confidentiality of Alcohol and Drug Abuse Patient Records regulations: The Federal rules restrict any use of the information to criminally investigate or prosecute any alcohol or drug abuse patient.[facility]In the event this information is protected by the Federal Confidentiality of Alcohol and Drug Abuse Patient Records regulations: The Federal rules restrict any use of the information to criminally investigate or prosecute any alcohol or drug abuse patient.[facility]In the event this information is protected by the Federal Confidentiality of Alcohol and Drug Abuse Patient Records regulations: The Federal rules restrict any use of the information to criminally investigate or prosecute any alcohol or drug abuse patient.[facility]In the event this information is protected by the Federal Confidentiality of Alcohol and Drug Abuse Patient Records regulations: The Federal rules restrict any use of the information to criminally investigate or prosecute any alcohol or drug abuse patient.[facility]In the event this information is protected by the Federal Confidentiality of Alcohol and Drug Abuse Patient Records regulations: The Federal rules restrict any use of the information to criminally investigate or prosecute any alcohol or drug abuse patient.[facility]In the event this information is protected by the Federal Confidentiality of Alcohol and Drug Abuse Patient Records regulations: The Federal rules restrict any use of the information to criminally investigate or prosecute any alcohol or drug abuse patient.[facility]In the event this information is protected by the Federal Confidentiality of Alcohol and Drug Abuse Patient Records regulations: The Federal rules restrict any use of the information to criminally investigate or prosecute any alcohol or drug abuse patient.[facility]In the event this information is protected by the Federal Confidentiality of Alcohol and Drug Abuse Patient Records regulations: The Federal rules restrict any use of the information to criminally investigate or prosecute any alcohol or drug abuse patient.[facility]In the event this information is protected by the Federal Confidentiality of Alcohol and Drug Abuse Patient Records regulations: The Federal rules restrict any use of the information to criminally investigate or prosecute any alcohol or drug abuse patient.[facility]In the event this information is protected by the Federal Confidentiality of Alcohol and Drug Abuse Patient Records regulations: The Federal rules restrict any use of the information to criminally investigate or prosecute any alcohol or drug abuse patient.[facility]In the event this information is protected by the Federal Confidentiality of Alcohol and Drug Abuse Patient Records regulations: The Federal rules restrict any use of the information to criminally investigate or prosecute any alcohol or drug abuse patient.[facility]In the event this information is protected by the Federal Confidentiality of Alcohol and Drug Abuse Patient Records regulations: The Federal rules restrict any use of the information to criminally investigate or prosecute any alcohol or drug abuse patient.[facility]In the event this information is protected by the Federal Confidentiality of Alcohol and Drug Abuse Patient Records regulations: The Federal rules restrict any use of the information to criminally investigate or prosecute any alcohol or drug abuse patient.[facility]In the event this information is protected by the Federal Confidentiality of Alcohol and Drug Abuse Patient Records regulations: The Federal rules restrict any use of the information to criminally investigate or prosecute any alcohol or drug abuse patient.[facility]In the event this information is protected by the Federal Confidentiality of Alcohol and Drug Abuse Patient Records regulations: The Federal rules restrict any use of the information to criminally investigate or prosecute any alcohol or drug abuse patient.[facility]In the event this information is protected by the Federal Confidentiality of Alcohol and Drug Abuse Patient Records regulations: The Federal rules restrict any use of the information to criminally investigate or prosecute any alcohol or drug abuse patient.[facility]In the event this information is protected by the Federal Confidentiality of Alcohol and Drug Abuse Patient Records regulations: The Federal rules restrict any use of the information to criminally investigate or prosecute any alcohol or drug abuse patient.[facility]In the event this information is protected by the Federal Confidentiality of Alcohol and Drug Abuse Patient Records regulations: The Federal rules restrict any use of the information to criminally investigate or prosecute any alcohol or drug abuse patient.[facility]In the event this information is protected by the Federal Confidentiality of Alcohol and Drug Abuse Patient Records regulations: The Federal rules restrict any use of the information to criminally investigate or prosecute any alcohol or drug abuse patient.[facility]In the event this information is protected by the Federal Confidentiality of Alcohol and Drug Abuse Patient Records regulations: The Federal rules restrict any use of the information to criminally investigate or prosecute any alcohol or drug abuse patient.[facility]In the event this information is protected by the Federal Confidentiality of Alcohol and Drug Abuse Patient Records regulations: The Federal rules restrict any use of the information to criminally investigate or prosecute any alcohol or drug abuse patient.[facility]In the event this information is protected by the Federal Confidentiality of Alcohol and Drug Abuse Patient Records regulations: The Federal rules restrict any use of the information to criminally investigate or prosecute any alcohol or drug abuse patient.[facility]In the event this information is protected by the Federal Confidentiality of Alcohol and Drug Abuse Patient Records regulations: The Federal rules restrict any use of the information to criminally investigate or prosecute any alcohol or drug abuse patient.[facility]In the event this information is protected by the Federal Confidentiality of Alcohol and Drug Abuse Patient Records regulations: The Federal rules restrict any use of the information to criminally investigate or prosecute any alcohol or drug abuse patient.[facility]In the event this information is protected by the Federal Confidentiality of Alcohol and Drug Abuse Patient Records regulations: The Federal rules restrict any use of the information to criminally investigate or prosecute any alcohol or drug abuse patient.[facility]In the event this information is protected by the Federal Confidentiality of Alcohol and Drug Abuse Patient Records regulations: The Federal rules restrict any use of the information to criminally investigate or prosecute any alcohol or drug abuse patient.[facility]In the event this information is protected by the Federal Confidentiality of Alcohol and Drug Abuse Patient Records regulations: The Federal rules restrict any use of the information to criminally investigate or prosecute any alcohol or drug abuse patient.[facility]In the event this information is protected by the Federal Confidentiality of Alcohol and Drug Abuse Patient Records regulations: The Federal rules restrict any use of the information to criminally investigate or prosecute any alcohol or drug abuse patient.[facility]In the event this information is protected by the Federal Confidentiality of Alcohol and Drug Abuse Patient Records regulations: The Federal rules restrict any use of the information to criminally investigate or prosecute any alcohol or drug abuse patient.[facility]In the event this information is protected by the Federal Confidentiality of Alcohol and Drug Abuse Patient Records regulations: The Federal rules restrict any use of the information to criminally investigate or prosecute any alcohol or drug abuse patient.[facility]In the event this information is protected by the Federal Confidentiality of Alcohol and Drug Abuse Patient Records regulations: The Federal rules restrict any use of the information to criminally investigate or prosecute any alcohol or drug abuse patient.[facility]In the event this information is protected by the Federal Confidentiality of Alcohol and Drug Abuse Patient Records regulations: The Federal rules restrict any use of the information to criminally investigate or prosecute any alcohol or drug abuse patient.[facility]In the event this information is protected by the Federal Confidentiality of Alcohol and Drug Abuse Patient Records regulations: The Federal rules restrict any use of the information to criminally investigate or prosecute any alcohol or drug abuse patient.[facility] HospitalIn the event this information is protected by the Federal Confidentiality of Alcohol and Drug Abuse Patient Records regulations: The Federal rules restrict any use of the information to criminally investigate or prosecute any alcohol or drug abuse patient.[facility] HospitalIn the event this information is protected by the Federal Confidentiality of Alcohol and Drug Abuse Patient Records regulations: The Federal rules restrict any use of the information to criminally investigate or prosecute any alcohol or drug abuse patient.[facility] Reason for Visit (unrecogniz ed section and content) ReasonCommentsRadiology NMSpecialtyDiagnoses / ProceduresReferred By Contact Referred To ContactCT IMAGING Diagnoses Other hydrocephalus (HCC) Procedures CT BRAIN WO IVCON CT HEAD/BRAIN W/O CONTRAST MATERIAL Marlene Cordero PA-C [id number] [facility] [place] [address] Referral IDStatusReasonStart DateExpiration DateVisits RequestedVisits [id number] Auto-Generated Referral /[id number]g PatientSpecialtyDiagnoses / ProceduresReferred By ContactReferred To ContactNEUROLOGICAL RASTAFARI Diagnoses NPH (normal pressure hydrocephalus) (HCC) Procedures Shunt Follow Up Marlene Cordero PA-C [phone] [phone] Referral IDStatusReashleighStbruno DateExpiration DateVisits RequestedVisits [id number] Review OON/Self Pay Override /[id number]rFttplrIqnygsgdOepxvyo Outside Medical RecordsReasonCommentsNausea & VomitingSpecialtyDiagnoses / Procedures Referred By ContactReferred To ContactGastroenterology Diagnoses Nausea and vomiting, unspecified vomiting type Procedures CONSULT TO GASTROENTEROLOGY OFFICE/OUTPATIENT [facility] 60-74 MINUTES Peterson Gonsalez MD [address] [phone] Referral IDStatusReasonStart DateExpiration DateVisits RequestedVisits [id number] PCP Requested Referral /[id number] OrdersReasonCommentsResultsReasonComments Follow UpCT SCAN 2-46-90Jsesejgpsdk CancelledReasonCommentsResultsPatient Update ReasonCommentsOrdersReasonCommentsPatient UpdateReasonCommentsAppointment ConfirmationReasonCommentsFollow Up Phone CallAll clearReasonCommentsEstablished PatientSpecialtyDiagnoses / ProceduresReferred By ContactReferred To Contact Urology / UROLOGY Diagnoses Malignant neoplasm of bladder, unspecified CYSTOSCOPY (via her ileal conduit) and stent removal Procedures CYSTOSCOPY AND TREATMENT [place] [address] [place] [address] Peterson Gonsalez MD [address] [place] [address] Referral IDStatusReasonStart DateExpiration DateVisits RequestedVisits [id number]/5/202212/977240HzbecaIsioomtmLcmyxar Question ReasonCommentsSooner appointment requestReasonCommentsPost OpReasonComments ReasonCommentsFollow UpSpecialtyDiagnoses / ProceduresReferred By Contact Referred To ContactUROLOGY Diagnoses Bladder cancer (HCC) Procedures OFFICE VISIT, EST PT., LEVEL 2 [place] [address] [place] [address] [facility] [address] [place] [address] Referral IDStatusReasonSttheriot DateExpiration DateVisits RequestedVisits [id number] OON/Self Pay Override /[id number]n PatientShunt follow upSpecialty Diagnoses / ProceduresReferred By ContactReferred To ContactINFECTIOUS DISEASES Diagnoses Fungal meningitis Procedures [facility] OUT[facility] VISIT fungal meningitis Jamie Mccarty MD [address] [place] [address] [address] [place] [address] Referral IDStatusReasonStart DateExpiration DateVisits RequestedVisits [id number] OON/Self Pay Override /[id number] / ProceduresReferred By ContactReferred To ContactCT IMAGING Diagnoses Other hydrocephalus (HCC) Procedures CT BRAIN WO IVCON CT HEAD/BRAIN W/O CONTRAST MATERIAL Marlene Cordero PA-C [address] [place] [address] Ct Imaging Referral IDStatusReasonStart DateExpiration DateVisits RequestedVisits [id number] Auto-Generated Referral /[id number] / ProceduresReferred By ContactReferred To ContactCT IMAGING Diagnoses Colitis Procedures CT ABDOMEN W IVCON CT ABDOMEN W/CONTRAST Peterson Gonsalez MD [address] [place] [address] Ct Imaging Referral IDStatusReasonStart DateExpiration DateVisits RequestedVisits [id number] Auto-Generated Referral Clearance Not Met - Admin/Fashion Buyer/Director Advise to Postpone/Reschedule or Not Proceed /[id number]u PatientFollow upReasonComments Follow UpReasonCommentsUrinary supply problemReasonCommentsAppointment Cancelled [...] [facility] TO Daniel Becerra MD [address] [facility] [place] [address] [facility] DIAGNOSTIC RADIOLOGY [address] [facility] [place] [address] Referral IDStatusReasonStart DateExpiration DateVisits RequestedVisits [id number]/13/20245/007157SeciixDuevmrhpJqzmoklovsl PatientF/u shunt checkReasonCommentsGait ProblemReasonCommentsFollow UpReasonCommentsNew PatientMovement Disorders and DBSSpecialtyDiagnoses / ProceduresReferred By ContactReferred To ContactNeurology / CARDIOLOGY Diagnoses Other hydrocephalus (HCC) Procedures CONSULT TO NEUROLOGY OFFICE/OUTPATIENT [facility] 60 MINUTES Marlene Cordero PA-C [address] [place] [address] [facility] [address] [place] [address] Referral IDStatusReasonStart DateExpiration DateVisits RequestedVisits [id number] PCP Requested Referral 999ReasonOnset DateCommentsHospital Eevooqobs14/22/2024Reason CommentsPost OpReasonCommentsEstablished PatientCT follow upSpecialtyDiagnoses / ProceduresReferred By ContactReferred To Contact [address] [address] Referral IDStatusReasonStart DateExpiration DateVisits RequestedVisits [id number] Request/4ReasonCommentsInitial ConsultWound ConsultReasonCommentsPost OpSx :10/08/23Referral IDStatusReasonStart Date Expiration DateVisits RequestedVisits [id number] Auto-Generated Referral /[id number] EVALReasonCommentsNew PatientNEW NI MEDICAL - Other hydrocephalus (HCC) [G91.8]SpecialtyDiagnoses / Procedures Referred By ContactReferred To ContactNeurology / NEUROLOGICAL RASTAFARI Diagnoses Other hydrocephalus (HCC) Procedures CONSULT TO NEUROLOGY OFFICE/OUTPATIENT [facility] 60 MINUTES Marlene Cordero PA-C [address] [place] [address] Reggie Butler MD [address] [place] [address] Referral IDStatusReasonStart DateExpiration DateVisits RequestedVisits [id number] PCP Requested Referral [id number] Gen RMPSpecialtyDiagnoses / Procedures Referred By ContactReferred To ContactXR IMAGING Diagnoses Closed nondisplaced transverse fracture of left patella, initial encounter Procedures XR KNEE LIMITED 2V AP/LAT LEFT RADIOLOGIC EXAMINATION KNEE 1/2 VIEWS Aashish Monge PA-C [address] [place] [address] Xr [address] [place] [address] Referral IDStatusReasonStart DateExpiration DateVisits RequestedVisits [id number] Auto-Generated Referral /[id number] CTSpecialtyDiagnoses / Procedures Referred By ContactReferred To ContactCT IMAGING Diagnoses History of bladder cancer Procedures CT UROGRAM WO/W IVCON CT ABD & PELVIS W/O CONTRST 1+ BODY Peterson Zaldivar MD [address] [place] [address] Ct Imaging [place] [address] Referral IDStatusReasonStart DateExpiration DateVisits RequestedVisits [id number] Auto-Generated Referral 1Referral IDStatusReasonStart DateExpiration DateVisits RequestedVisits [id number] Auto-Generated Referral /[id number] CTSpecialtyDiagnoses / Procedures Referred By ContactReferred To ContactCT IMAGING Diagnoses Other hydrocephalus (HCC) Procedures CT BRAIN WO IVCON CT HEAD/BRAIN W/O CONTRAST MATERIAL Con Oconnor MD [address] [place] [address] [address] Imaging [place] [address] Referral IDStatusReasonStart DateExpiration DateVisits RequestedVisits [id number] Auto-Generated Referral OON/Self Pay Override /[id number] NMSpecialtyDiagnoses / Procedures Referred By ContactReferred To ContactCT IMAGING Diagnoses History of bladder cancer Abdominal pain, unspecified abdominal location Procedures CT ABD/PEL W IVCON CT ABD & PELVIS W/CONTRAST Peterson Gonsalez MD [address] [place] [address] [address] Imaging [place] [address] Referral IDStatusReasonStart DateExpiration DateVisits RequestedVisits [id number] Auto-Generated Referral /[id number] IDStatusReasonStart DateExpiration DateVisits RequestedVisits [id number] Auto-Generated Referral /[id number] / ProceduresReferred By ContactReferred To ContactCT IMAGING Diagnoses Malignant neoplasm of urinary bladder, unspecified site (HCC) Procedures CT CHEST WO IVCON CAT SCAN OF CHEST Peterson Gonsalez MD [address] [place] [address] Ct Imaging [place] [address] Referral IDStatusReasonStart DateExpiration DateVisits RequestedVisits [id number] Auto-Generated Referral /[id number] Dependent Diabetes MellitusReason CommentsBotox InjectionSpecialtyDiagnoses / ProceduresReferred By Contact Referred To ContactPhysical Medicine and Rehab / PHYSICAL MEDICINE AND REHAB Diagnoses Chronic incomplete spastic paraplegia (HCC) Spasm of muscle Procedures BOTULINUM TOXIN A PER 1 UNIT INITIAL J0585 - BOTULINUM TOXIN A 400 UNITS EVERY 90 DAYS x 1 YEAR FOR SPASTICITY 79470 - CHEMODENERV 1 EXTREMITY 1-4 70531 - CHEMODENERV ADDL EXTREM 1-4 EA Noel Daniels MD [address] [place] [address] Noel Daniels MD [address] [place] [address] Referral IDStatusReasonStart DateExpiration DateVisits RequestedVisits [id number] Patient Cleared - Admin/Fashion Buyer/Director advise to proceed or did not respond [id number]Vrqkmk injections.Specialty Diagnoses / ProceduresReferred By ContactReferred To ContactPhysical Medicine and Rehab / PHYSICAL MEDICINE AND REHAB Diagnoses PHENOL Procedures INJECTION PHENOL Self Noel Daniels MD [address] [place] [address] Referral IDStatusReasonStart DateExpiration DateVisits RequestedVisits [id number]/27/202412/26/905465VhzlwhSovvxlyrTjsjnzxpcbr Patient Follow UpReasonCommentsEstablished PatientReasonCommentsAbdominal painPt states abd pain for the past day, sent here from [facility] for bowel obstruction, hx of bladder cancer and has nephrostomy tubesSpecialtyDiagnoses / ProceduresReferred By ContactReferred To ContactEmergency Medicine Diagnoses Unspecified intestinal obstruction, unspecified as to partial versus complete obstruction (HCC) closed loop bowel obstruction Procedures NO [facility] [employer] [facility] [place] [address] Phone: [phone] [facility] [employer] [facility] [place] [address] Phone: [phone] Referral IDStatusReasonStart DateExpiration DateVisits RequestedVisits [id number] follow-upAbdominal surgeryReason CommentsNew Patient EvaluationNew PatientConsultPt c/o muscle spasms to both legs. Per patient they are very intense.FallPer patient she came off the edge of the bed in the morning. No injury.SpecialtyDiagnoses / ProceduresReferred By ContactReferred To ContactNeurology Diagnoses Spasticity Procedures CONSULT TO NEUROLOGY OFFICE/OUTPATIENT [facility] 60 MINUTES Marlene Cordero PA-C [address] [phone] [facility] Main [address] [place] [address] Referral IDStatusReasonSttheriot DateExpiration DateVisits RequestedVisits [id number] PCP Requested Referral [id number] UpReasonCommentsRequest to be scheduled for next Botox injection.ReasonCommentsEstablished PatientOther hydrocephalusReferral IDStatusReasonStart DateExpiration DateVisits Requested Visits [id number] Auto-Generated Referral /[id number] UpReasonCommentsNerve BlockSpecialty Diagnoses / ProceduresReferred By ContactReferred To ContactCT IMAGING Diagnoses Other hydrocephalus (HCC) Procedures CT BRAIN WO IVCON CT HEAD/BRAIN W/O CONTRAST MATERIAL Marlene Cordero PA-C [address] [place] [address] Phone: tel: fax: [facility] IMAGING [place] [address] Referral IDStatusReasonSttheriot DateExpiration DateVisits RequestedVisits [id number] Auto-Generated Referral [id number] / ProceduresReferred By ContactReferred To ContactPhysical Medicine and Rehab / PHYSICAL MEDICINE AND REHAB Diagnoses Chronic incomplete spastic paraplegia (HCC) Spasm of muscle Procedures BOTULINUM TOXIN A PER 1 UNIT RENEWAL - new insurance J0585 - BOTULINUM TOXIN A 400 UNITS EVERY 90 DAYS x 1 YEAR FOR SPASTICITY 52189 - CHEMODENERV 1 EXTREMITY 1-4 50379 - CHEMODENERV ADDL EXTREM 1-4 EA Noel Daniels MD [address] [place] [address] Phone: tel: fax: Noel Daniels MD [address] [place] [address] Phone: tel: fax: Referral IDStatusReasonStart DateExpiration DateVisits RequestedVisits [id number]/12/202512/31/53255663Lsfruphr IDStatusReasonStart DateExpiration DateVisits RequestedVisits [id number] Auto-Generated Referral [id number] UpdateEdwardsReasonOnset DateComments 08/22/2024ReasonCommentsAppointmentPatient still in the hospital, scheduled Hip Fracture Liaison Consult Appointment with on 10/09 at 12:00PM. Sent My chart message and mailed out reminderReasonCommentsRadiology CTSpecialty Diagnoses / ProceduresReferred By ContactReferred To ContactCT IMAGING Diagnoses History of bladder cancer Procedures CT UROGRAM WO/W IVCON CT ABD & PELVIS W/WO CONTRST 1+ BODY Molly Bradley APRN.SUPERVISOR [employer] [address] [place] [address] Phone: tel: fax: [facility] IMAGING [place] [address] Referral IDStatusReasonStart DateExpiration DateVisits RequestedVisits [id number] Auto-Generated Referral [id number]b PatientCT Follow upReasonComments New PatientSpecialtyDiagnoses / ProceduresReferred By ContactReferred To Contact SPINE Diagnoses Cervical stenosis of spinal canal Procedures CONSULT TO SPINE SURGERY OFFICE/OUTPATIENT [facility] 60 MINUTES Marlene Cordero PA-C [address] [place] [address] Phone: tel: fax: [facility] [address] [place] [address] Phone: tel: Referral IDStatusReasonStart DateExpiration DateVisits RequestedVisits [id number] PCP Requested Referral [id number] CommunicationPatient Question ReasonCommentsMedication AuthorizationCresembaReasonCommentsCataract Evaluation Care Teams (unrecognized sec tion and content) Team Status: Active Member Role Status Joshua Berumen DO Primary Care Provider Active Team Status: Inactive Member Role Status Joshua Berumen DO Primary Care Provider Active Start: November 19, 2024 End: November 19paula Berumen , DOAttending ProviderActiveStart: November 19, 2024 End: November 19, 2024 Team Status: Inactive Member Role Status Joshua Berumen DO Primary Care Provider Active Start: December 26, 2024 End: December 26enarnaldo Berumen DOAttending ProviderActiveStart: December 26, 2024 End: December 26, 2024 Team Status: Inactive Member Role Status Joshua Berumen DO Primary Care Provider Active Start: December 31, 2024 End: December 31, 2024Sharan Dominguez APRNAtteneleanor ProviderActiveStart: December 31, 2024 End: December 31, [...] Provider Active Start: August 27, 2024 Veronica Calvertalla , VALEttending ProviderActiveStart: August 27, 2024 Team Status: Active Member Role Status Dates Juliette Berumen DO Primary Care Provider Active Start: August 28, 2024 Outside ProviderAttending ProviderActiveStart: August 28, 2024 Team Status: Active Member Role Status Dates Juliette Berumen DO Primary Care Provider Active Start: October 02, 2024 Molly Hendrickson , ROUGH PLANER TENDER-CAttending ProviderActiveStart: October 02, 2024 Team Status: [...] Care Provider Active Start: July 31, 2024 Sharan Dominguez , Rashid ProviderActiveStart: July 31, 2024 Team Status: Inactive Member Role Status Dates Juliette Berumen DO Primary Care Provide r, Attending Provider Active Start: August 05, 2024 End: August 05, 2024 Team Status: Active Member Role Status Dates Juliette Berumen DO Primary Care Provider Active Start: March 05, 2024 Inga Marquita Chavez DOAttending ProviderActiveStart: March 05, 2024 Team Status: Active Member Role Status Dates Juliette Berumen DO Primary Care Provide r, Attending Provider Active Start: March 18, 2024 Team Status: Active Member Role Status Dates Juliette Berumen DO Primary Care Provider Active Start: April 10, 2024 Jamie Aiken ProviderActiveStart: April 10, 2024 Team Status: Inactive [...] Care Provider Active Start: December 21, 2023 Jamiesangeetha Aiken ProviderActiveStart: December 21, 2023 Team Status: Active [...] Active Start: February 15, 2024 Merlene Turcios CMAAttending ProviderActiveStart: February 15, 2024 Team Status: Inactive Member Role Status Dates Juliette Berumen DO Primary Care Provide r, Attending Provider Active Start: July 17, 2023 End: July 17, 2023 Team Status: Inactive Member Role Status Dates Juliette Berumen , DO Primary Care Provider Active Start: August 01, 2023 End: August 01, 2023Shelbi Lopez APRN ROUGH PLANER TENDER-CAttending ProviderActive Start: August 01, 2023 End: August 01, 2023 Team Status: Active Member Role Status Dates Juliette Berumen , DO Primary Care Provide r, Attending Provider Active Start: August 23, 2023 Team Status: Inactive Member Role Status Dates Juliette Berumen , DO Primary Care Provide r, Attending Provider Active Start: September 25, 2023 End: September 25, 2023 Team Status: Active Member Role Status Dates Juliette Berumen , DO Primary Care Provider Active Start: June 24, 2023 Arabella Melo ProviderActiveStart: June 24, 2023 Team Status: Inactive Member Role Status Dates Juliette Berumen , Primary Care Provider Active Rashid Araujo ProviderActiveTeam MemberRelationshipSpecialtyStart DateEnd Date Kalli Siomns MD [address] [place] [address] PCP - GeneralFamily Dnzfciyv66/28/21Team MemberRelationshipSpecialtyStart [place] [address] [place] [address] PCP - GeneralFamily Rqnyiikg09/28/21Team MemberRelationshipSpecialtyStart Date End Date Kalli Simons MD [address] [place] [address] PCP - GeneralFamily Ttmxyhzq74/28/21Team MemberRelationshipSpecialtyStart Date End Date Kalli Simons MD [address] [place] [address] PCP - GeneralFamily Uvghynyb91/28/21Team MemberRelationshipSpecialtyStart Date End Date Kalli Simons MD [address] [place] [facility] [address] PCP - GeneralFamily Bkmeyqxg03/28/21Team MemberRelationshipSpecialtyStart Date End Date Kalli Simons MD [address] [place] [facility] [address] PCP - GeneralFamily Geajalil11/28/21Team MemberRelationshipSpecialtyStart Date End Date Kalli Simons MD [address] [place] [facility] [address] PCP - GeneralFamily Ygwbydjv28/28/21Team MemberRelationshipSpecialtyStart Date End Date Kalli Simons MD [address] [place] [facility] [address] PCP - GeneralFamily Yfjiumto84/28/21Team MemberRelationshipSpecialtyStart Date End Date Kalli Simons MD [address] [place] [facility] [address] PCP - GeneralFamily Zlfkydst91/28/21Team MemberRelationshipSpecialtyStart Date End Date Kalli Simons MD [address] [place] [facility] [address] PCP - GeneralFamily Iibhgzwb51/28/21Team MemberRelationshipSpecialtyStart Date End Date Kalli Simons MD [address] [place] [facility] [address] PCP - GeneralFamily Wlmtfmbx92/28/21 Team Status: Inactive Member Role Status Dates Juliette Berumen , Primary Care Provider Active Raul Montez MDEmergency ProviderActiveRuAditya Rivera Provider, Attending ProviderActiveTeam MemberRelationshipSpecialtyStart DateEnd Date Kalli Simons MD [address] [place] [facility] [address] PCP - GeneralFamily Jdtxgrne13/28/21Team MemberRelationshipSpecialtyStart Date End Date Kalli Simons MD [address] [place] [facility] [address] PCP - GeneralFamily Trlwjzwv40/28/21Team MemberRelationshipSpecialtyStart Date End Date Kalli Simons MD [address] [place] [address] PCP - GeneralFamily Fmnhijnf87/28/21Team MemberRelationshipSpecialtyStart Date End Date Kalli Simons MD [address] [place] [address] PCP - GeneralFamily Clknsikq10/28/21Team MemberRelationshipSpecialtyStart Date End Date Kalli Simons MD [address] [place] [address] PCP - GeneralFamily Ddlvduqs99/28/21Team MemberRelationshipSpecialtyStart Date End Date Kalli Simons MD [address] [place] [address] PCP - GeneralFamily Cuoqfknt34/28/21Team MemberRelationshipSpecialtyStart Date End Date Kalli Simons MD [address] [place] [address] PCP - GeneralFamily Lkufocqe87/28/21Team MemberRelationshipSpecialtyStart Date End Date Kalli Simons MD [address] [place] [address] PCP - GeneralFamily Knbalyph35/28/21Team MemberRelationshipSpecialtyStart Date End Date Kalli Simons MD [address] [place] [address] PCP - GeneralFamily Ymdjhkra56/28/21Team MemberRelationshipSpecialtyStart Date End Date Kalli Simons MD [address] [place] [address] PCP - GeneralFamily Rcsvigsg51/28/21Team MemberRelationshipSpecialtyStart Date End Date Kalli Simons MD [address] [place] [address] PCP - GeneralFamily Bjbglbpc06/28/21Team MemberRelationshipSpecialtyStart Date End Date Kalli Simons MD [address] [place] [address] PCP - GeneralFamily Eusrspjx52/28/21 [employer] CM [employer]06/17/22Team MemberRelationshipSpecialtyStart DateEnd Date Kalli Simons MD [address] [place] [address] PCP - GeneralFamily Zbrxjgqh87/28/21 [employer] CM [employer]06/17/22Team MemberRelationshipSpecialtyStart DateEnd Date Kalli Simons MD [address] [place] [address] PCP - GeneralFamily Dolnhlzg72/28/21 [employer] CM [employer]06/17/22Team MemberRelationshipSpecialtyStart DateEnd Date Kalli Simons MD [address] [place] [address] PCP - GeneralFamily Dskevowc40/28/21 [employer] CM [employer]06/17/22Team MemberRelationshipSpecialtyStart DateEnd Date Kalli Simons MD [address] [place] [address] PCP - GeneralFamily Dnpsgaoj44/28/21 [employer] CM [employer]06/17/22Team MemberRelationshipSpecialtyStart DateEnd Date Kalli Simons MD [address] [place] [address] PCP - GeneralFamily Dhmkzddy15/28/21 [employer] CM [employer]06/17/22Team MemberRelationshipSpecialtyStart End Date Kalli Simons MD [address] [place] [address] PCP - GeneralFamily Urphihbp90/28/21 [employer] CM [employer]06/17/22 Team Status: Inactive Member Role Status Dates Juliette Berumen DO Primary Care Provider, Attending Pr ovider Active Team MemberRelationshipSpecialtyStart DateEnd Kalli Simons MD [address] [place] [address] PCP - GeneralFamily Ieasmrsm13/28/21 [employer] CM [employer]06/17/22Team MemberRelationshipSpecialtyStart DateEnd Date Kalli Simons MD [address] [facility] [place] [address] PCP - GeneralFamily Uegxwgwv12/28/21 [employer] CM [employer]06/17/22Te MemberRelationshipSpecialtyStart DateEnd Date Kalli Simons MD [address] [facility] [place] [address] PCP - GeneralFamily Luxtmpfl07/28/21Team MemberRelationshipSpecialtyStart Date End Date Kalli Simons MD [address] [address] [facility] [place] [address] PCP - GeneralFamily Lsvsrezi13/28/21 [employer] Community Resource06/17/22Te MemberRelationshipSpecialtyStart DateEnd Date Kalli Simons MD [address] [facility] [place] [address] PCP - GeneralFamily Bmdhtvkx31/28/21 [employer] Community [employer]06/17/22Team MemberRelationshipSpecialtyStart DateEnd Date Kalli Simons MD [address] [facility] [address] PCP - GeneralFamily Gyosniul91/28/21 [employer] Community [employer]06/17/22Team MemberRelationshipSpecialtyStart DateEnd Date Kalli Simons MD [address] [facility] [place] [address] PCP - GeneralFamily Cnemzwvn65/28/21 [employer] Community [employer]06/17/22Team MemberRelationshipSpecialtyStart DateEnd Date Kalli Simons MD [address] [facility] [place] [place] [address] PCP - GeneralFamily Puaxgypm77/28/21 [employer] Community [employer]06/17/22Te MemberRelationshipSpecialtyStart DateEnd Date Kalli Simons MD [address] [place] [facility] [place] [address] PCP - GeneralFamily Ziwlidze74/28/21 [employer] Community [employer]06/17/22Te MemberRelationshipSpecialtyStart DateEnd Date Kalli Simons MD [address] [place] [facility] [address] PCP - GeneralFamily Edfyfgsl87/28/21 [employer] Community [employer]06/17/22Team MemberRelationshipSpecialtyStart DateEnd Date Kalli Simons MD [address] [place] [facility] [address] PCP - GeneralFamily Qizllthh40/28/21 [employer] Community [employer]06/17/22Team MemberRelationshipSpecialtyStart DateEnd Date Kalli Simons MD [address] [place] [facility] [address] PCP - GeneralFamily Avukcmkc65/28/21 [employer] CM [employer] Community [employer]06/17/22Team MemberRelationshipSpecialtyStart DateEnd Date Kalli Simons MD [address] [place] [address] PCP - GeneralFamily Nepuamzk08/28/21 [employer]06/17/22 Team Status: Inactive Member Role Status Dates Juliette Berumen DO Attending Provider Active Sta rt: April 25, 2023 End: April 25, 2023Team MemberRelationshipSpecialtyStart DateEnd Date Kalli Simons MD [address] [place] [facility] [address] PCP - GeneralFamily Eseqbfip63/28/21 [employer] CM [employer]06/17/22Team MemberRelationshipSpecialtyStart DateEnd Date Kalli Simons MD [address] [place] [address] PCP - GeneralFamily Godkfime93/28/21 [employer]06/17/22Team MemberRelationshipSpecialtyStart DateEnd Date Kalli Simons MD [address] [place] [address] PCP - GeneralFamily Sthgkycj79/28/21 [employer]06/17/22Team MemberRelationshipSpecialtyStart DateEnd Date Kalli Simons MD [address] [place] [address] PCP - GeneralFamily Zrentnha87/28/21 [facility] [employer] [facility] Community Resource06/17/22Team MemberRelationshipSpecialtyStart DateEnd Date Arlene Chambers MD [address] [place] [address] PhysicianUrology08/18/23 Daniel Figueroa MD [address] [place] [address] [place] [address] PhysicianNeurosurgery08/18/23Team MemberRelationshipSpecialtyStart DateEnd Date Arlene Chambers MD [address] [place] [address] PhysicianUrology08/18/23 Daniel Figueroa MD [address] [place] [address] [place] [address] PhysicianNeurosurgery08/18/23Team MemberRelationshipSpecialtyStart DateEnd Arlene Chambers MD [address] [place] [address] PhysicianUrology08/18/23 Daniel Figueroa MD [address] [facility] [place] [address] PhysicianNeurosurgery08/18/23Team MemberRelationshipSpecialtyStart DateEnd Arlene Chambers MD [address] [place] [address] PhysicianUrology08/18/23 Daniel Figueroa MD [address] [place] [address] [place] [address] PhysicianNeurosurgery08/18/23Team MemberRelationshipSpecialtyStart DateEnd Date Arlene Chambers MD [address] [place] [address] PhysicianUrology08/18/23 Daniel Figueroa MD [address] [place] [address] [place] [address] PhysicianNeurosurgery08/18/23Team MemberRelationshipSpecialtyStart DateEnd Date Arlene Chambers MD [address] [place] [address] PhysicianUrology08/18/23 Daniel Figueroa MD [address] [place] [address] [place] [address] PhysicianNeurosurgery08/18/23Team MemberRelationshipSpecialtyStart DateEnd Date Kalli Simons MD [address] [place] [address] PCP - GeneralFamily Mmajpdea60/28/21 [employer] [facility]06/17/22Team MemberRelationshipSpecialtyStart DateEnd Date Kalli Simons MD [address] [place] [address] PCP - GeneralFamily Ibdbhnpe45/28/21 [employer] CM [employer] Community [employer]06/17/22Team MemberRelationshipSpecialtyStart DateEnd Date Kalli Simons MD [address] [place] [facility] [address] PCP - GeneralFamily Ysizrgit51/28/21 [employer] Community [employer]06/17/22Team MemberRelationshipSpecialtyStart DateEnd Date Kalli Simons MD [address] [place] [address] PCP - GeneralFamily Gnivxpbv27/28/21 [employer]06/17/22Te MemberRelationshipSpecialtyStart DateEnd Date Kalli Simons MD [address] [place] [facility] [address] PCP - GeneralFamily Cbsvlpxo63/28/21 [employer] Community [employer]06/17/22Te MemberRelationshipSpecialtyStart DateEnd Date Kalli Simons MD [address] [place] [address] PCP - GeneralFamily Mpvnxiqx40/28/21 [employer]06/17/22Team MemberRelationshipSpecialtyStart DateEnd Date Kalli Simons MD [address] [place] [address] PCP - GeneralFamily Thuchbxg79/28/21 [employer]06/17/22Te MemberRelationshipSpecialtyStart DateEnd Date Kalli Simons MD [address] [place] [address] PCP - GeneralFamily Ggregnqj42/28/21 [employer]06/17/22Team MemberRelationshipSpecialtyStart DateEnd Kalli Simons MD [address] [place] [facility] [address] PCP - GeneralFamily Rqertdep66/28/21 [employer]06/17/22Te MemberRelationshipSpecialtyStart DateEnd Date Kalli Simons MD [address] [place] [address] PCP - GeneralFamily Snknttql35/28/21 [employer]06/17/22Team MemberRelationshipSpecialtyStart DateEnd Date Kalli Simons MD [address] [place] [address] PCP - GeneralFamily Stuukikp54/28/21 [employer]06/17/22Team MemberRelationshipSpecialtyStart DateEnd Date Kalli Simons MD [address] [place] [address] PCP - GeneralFamily Rrqisuqm67/28/21 [employer]06/17/22Team MemberRelationshipSpecialtyStart DateEnd Date Kalli Simons MD [address] [place] [address] PCP - GeneralFamily Stbumyje67/28/21 [employer]06/17/22Team MemberRelationshipSpecialtyStart DateEnd Date Kalli Simons MD [address] [place] [address] PCP - GeneralFamily Abbbopkz30/28/21 [employer]06/17/22Te MemberRelationshipSpecialtyStart DateEnd Date Kalli Simons MD [address] [place] [address] PCP - GeneralFamily Jjiekspp52/28/21 [employer]06/17/22Team MemberRelationshipSpecialtyStart DateEnd Date Kalli Simons MD [address] [place] [address] PCP - GeneralFamily Eccxigee78/28/21 [employer]06/17/22Team MemberRelationshipSpecialtyStart DateEnd Date Kalli Simons MD [address] [place] [address] PCP - GeneralFamily Qwlqzdkg13/28/21 [employer]06/17/22 MemberRelationshipSpecialtyStart DateEnd Date Kalli Simons MD [address] [place] [address] PCP - GeneralFamily Jgufvoid19/28/21 [employer]06/17/22 MemberRelationshipSpecialtyStart DateEnd Date Kalli Simons MD [address] [place] [address] PCP - GeneralFamily Gaietkge76/28/21 [employer]06/17/22 MemberRelationshipSpecialtyStart DateEnd Date Kalli Simons MD [address] [place] [facility] [address] PCP - GeneralFamily Ryuavkgb62/28/21 [employer]06/17/22 MemberRelationshipSpecialtyStart DateEnd Date Kalli Simons MD [address] [place] [address] PCP - GeneralFamily Oaacsrjp35/28/21 [employer]06/17/22 MemberRelationshipSpecialtyStart DateEnd Date Kalli Simons MD [address] [place] [address] PCP - GeneralFamily Uyimbmsm67/28/21 [employer] Community [employer]06/17/22 MemberRelationshipSpecialtyStart DateEnd Date Kalli Simons MD [address] [facility] [address] PCP - GeneralFamily Zguscvzv44/28/21 [employer] Community Resource06/17/22 MemberRelationshipSpecialtyStart DateEnd Date Kalli Simons MD [address] [facility] [address] PCP - GeneralFamily Ipzschic65/28/21 [employer]06/17/22 MemberRelationshipSpecialtyStart DateEnd Date Kalli Simons MD [address] [facility] [address] PCP - GeneralFamily Xwfcgfff33/28/21 [employer]06/17/22 MemberRelationshipSpecialtyStart DateEnd Date Kalli Simons MD [address] [facility] [place] [address] PCP - GeneralFamily Xqxsdkyd60/28/21 [employer]06/17/22Te MemberRelationshipSpecialtyStart DateEnd Date Kalli Simons MD [address] [facility] [address] PCP - GeneralFamily Cydzvjlz39/28/21 [employer]06/17/22 MemberRelationshipSpecialtyStart DateEnd Date Kalli Simons MD [address] [place] [facility] [address] PCP - GeneralFamily Jmszjnhu27/28/21 [employer]06/17/22Te MemberRelationshipSpecialtyStart DateEnd Date Kalli Simons MD [address] [place] [address] PCP - GeneralFamily Jlmklkht45/28/21 [employer]06/17/22Team MemberRelationshipSpecialtyStart DateEnd Date Kalli Simons MD [address] [place] [address] PCP - GeneralFamily Hlhrodul51/28/21 [employer]06/17/22Te MemberRelationshipSpecialtyStart DateEnd Date Kalli Simons MD [address] [place] [address] PCP - GeneralFamily Fdydivml68/28/21 [employer]06/17/22Team MemberRelationshipSpecialtyStart DateEnd Date Kalli Simons MD [address] [place] [address] PCP - GeneralFamily Djmvtrxp22/28/21 [employer]06/17/22Team MemberRelationshipSpecialtyStart DateEnd Date Kalli Simons MD [address] [place] [address] PCP - GeneralFamily Rldeduva09/28/21 [employer]06/17/22Team MemberRelationshipSpecialtyStart DateEnd Date Kalli Simons MD [address] [place] [address] PCP - GeneralFamily Ksokcwgv17/28/21 [employer]06/17/22Te MemberRelationshipSpecialtyStart DateEnd Date Kalli Simons MD [address] [place] [address] PCP - GeneralFamily Jpevkggo01/28/21 [employer]06/17/22Te MemberRelationshipSpecialtyStart DateEnd Date Kalli Simons MD [address] [place] [facility] [address] PCP - GeneralFamily Mcecpykt60/28/21 [employer]06/17/22Team MemberRelationshipSpecialtyStart DateEnd Date Kalli Simons MD [address] [place] [address] PCP - GeneralFamily Qivanqkn03/28/21 [employer]06/17/22Team MemberRelationshipSpecialtyStart DateEnd Date Kalli Simons MD [address] [facility] [place] [address] PCP - GeneralFamily Mzdbgugv97/28/21 [employer]06/17/22Team MemberRelationshipSpecialtyStart DateEnd Date Kalli Simons MD [address] [facility] [address] PCP - GeneralFamily Ovqfbfpc07/28/21 [employer]06/17/22Team MemberRelationshipSpecialtyStart DateEnd Date Kalli Simons MD [address] [place] [address] PCP - GeneralFamily Qbtznyhb74/28/21 [employer]06/17/22Team MemberRelationshipSpecialtyStart DateEnd Date Kalli Simons MD [address] [facility] [place] [address] PCP - GeneralFamily Clbyffbm62/28/21 [employer]06/17/22Team MemberRelationshipSpecialtyStart DateEnd Date Kalli Simons MD [address] [place] [address] PCP - GeneralFamily Ywjcyylo53/28/21 [employer]06/17/22Team MemberRelationshipSpecialtyStart DateEnd Date Kalli Simons MD [address] [place] [address] PCP - GeneralFamily Pzmoafdz97/28/21 [employer]06/17/22Te MemberRelationshipSpecialtyStart DateEnd Date Kalli Simons MD [address] [place] [address] PCP - GeneralFamily Zynajsyt16/28/21 [employer]06/17/22Te MemberRelationshipSpecialtyStart DateEnd Date Kalli Simons MD [address] [place] [address] PCP - GeneralFamily Kxdrzsaq23/28/21 [employer]06/17/22Te MemberRelationshipSpecialtyStart DateEnd Date Kalli Simons MD [address] [place] [address] PCP - GeneralFamily Uwvcggku86/28/21 [employer]06/17/22Te MemberRelationshipSpecialtyStart DateEnd Date Kalli Simons MD [address] [place] [address] PCP - GeneralFamily Pgfupzvy36/28/21 [employer] Community [employer]06/17/22Team MemberRelationshipSpecialtyStart DateEnd Date Kalli Simons MD [address] [place] [address] PCP - GeneralFamily Sexdmmfu16/28/21 [employer]06/17/22Team MemberRelationshipSpecialtyStart DateEnd Date Kalli Simons MD [address] [place] [address] PCP - GeneralFamily Aqkyaeuc79/28/21 [employer] Community [employer]06/17/22Team MemberRelationshipSpecialtyStart DateEnd Date Kalli Simons MD [address] [place] [address] PCP - GeneralFamily Zwegihea40/28/21 [employer]06/17/22Team MemberRelationshipSpecialtyStart DateEnd Date Kalli Simons MD [address] [place] [address] PCP - GeneralFamily Wriukipb61/28/21Team MemberRelationshipSpecialtyStart Date End Date Kalli Simons MD [address] [place] [address] PCP - GeneralFamily Ntiwmbhi07/28/21 [employer]06/17/22Team MemberRelationshipSpecialtyStart DateEnd Date Kalli Simons MD [address] [place] [address] PCP - GeneralFamily Myqiaghx78/28/21Team MemberRelationshipSpecialtyStart Date End Date Kalli Simons MD [address] [place] [address] PCP - GeneralFamily Xiozjtpt05/28/21 [employer]06/17/22Te MemberRelationshipSpecialtyStart DateEnd Date Kalli Simons MD [address] [place] [address] PCP - GeneralFamily Liismxmp57/28/21 [employer] CM [employer]06/17/22Team MemberRelationshipSpecialtyStart DateEnd Date Kalli Simons MD [address] [place] [address] PCP - GeneralFamily Fkybxzcn45/28/21 [employer] Community Resource06/17/22Te MemberRelationshipSpecialtyStart DateEnd Date Kalli Simons MD [address] [place] [address] PCP - GeneralFamily Pbxxgyqp13/28/21 [employer] CM [employer] Community [employer]06/17/22Team MemberRelationshipSpecialtyStart DateEnd Date Kalli Simons MD [address] [place] [address] PCP - GeneralFamily Jsdbimzg86/28/21 [employer] CM [employer] Community [employer]06/17/22Team MemberRelationshipSpecialtyStart DateEnd Date Kalli Simons MD [address] [place] [address] PCP - GeneralFamily Ovkoebjv76/28/21 [employer] CM [employer]06/17/22Team MemberRelationshipSpecialtyStart DateEnd Date Kalli Simons MD [address] [place] [address] PCP - GeneralFamily Jattoddg23/28/21 [employer]06/17/22Te MemberRelationshipSpecialtyStart DateEnd Date Kalli Simons MD [address] [place] [address] PCP - GeneralFamily Ahsexrdi16/28/21 [employer] CM [employer]06/17/22Te MemberRelationshipSpecialtyStart DateEnd Date Kalli Simons MD [address] [place] [address] PCP - GeneralFamily Zvcrmlxz16/28/21 [employer]06/17/22Te MemberRelationshipSpecialtyStart DateEnd Date Kalli Simons MD [address] [place] [address] PCP - GeneralFamily Foyldliv28/28/21 [employer]06/17/22Team MemberRelationshipSpecialtyStart DateEnd Date Kalli Simons MD [address] [place] [address] PCP - GeneralFamily Qnasohea16/28/21 [employer]06/17/22Team MemberRelationshipSpecialtyStart DateEnd Date Kalli Simons MD [address] [place] [address] PCP - GeneralFamily Kpdjnwdd14/28/21 [employer]06/17/22Team MemberRelationshipSpecialtyStart DateEnd Date Kalli Simons MD [address] [place] [address] PCP - GeneralFamily Pgwlreou39/28/21 [employer] CM [employer]06/17/22Team MemberRelationshipSpecialtyStart DateEnd Date Kalli Simons MD [address] [place] [address] PCP - GeneralFamily Pxjnwjhq47/28/21 [employer] CM [employer]06/17/22Team MemberRelationshipSpecialtyStart DateEnd Date Kalli Simons MD [address] [place] [address] PCP - GeneralFamily Rposzlze65/28/21 [employer]06/17/22 Team Status: Active Member Role Status Dates Juliette Berumen DO Primary Care Provider Active Start: June 03, 2024 Rashid Lyn ProviderActiveStart: June 03, 2024 Team MemberRelationshipSpecialtyStart DateEnd Date Kalli Simons MD [address] [place] [address] PCP - GeneralFamily Rezytfdx37/28/21 [employer]06/17/22 Team Status: Active Member Role Status Dates Juliette Berumen DO Primary Care Provider Active Start: June 19, 2024 Rashdi Lyn ProviderActiveStart: June 19, 2024 Team MemberRelationshipSpecialtyStart DateEnd Date Kalli Simons MD [address] [place] [address] PCP - GeneralFamily Vkfuddax21/28/21 [employer] CM [employer] Community [employer]06/17/22 Team Status: Active Member Role Status Dates Juliette Berumen DO Primary Care Provider Active Start: July 03, 2024 Rashid Lyn ProviderActiveStart: July 03, 2024 Team Status: Active Member Role Status Dates Juliette Berumen DO Primary Care Provider Active Start: July 24, 2024 Rashid Lyn ProviderActiveStart: July 24, 2024 Team MemberRelationshipSpecialtyStart DateEnd Date Kalli Simons MD [address] [place] [address] PCP - GeneralFamily Bcqhvjes75/28/21 [employer] CM [employer] Community [employer]06/17/22Team MemberRelationshipSpecialtyStart DateEnd Date Kalli Simons MD [address] [place] [address] PCP - GeneralFamily Ylajvgli05/28/21 [employer] Community Resource06/17/22Team MemberRelationshipSpecialtyStart DateEnd Date Kalli Simons MD [address] [place] [address] PCP - GeneralFamily Dwlkdgew73/28/21 [employer] CM [employer] Community Resource06/17/22Team MemberRelationshipSpecialtyStart DateEnd Date Kalli Simons MD [address] [place] [address] PCP - GeneralFamily Vofitodm17/28/21 [employer] Community Resource06/17/22 Team Status: Active Member Role Status Dates Juliette Berumen DO Primary Care Provider Active Start: December 10, 2024 Rashid Lyn ProviderActiveStart: December 10, 2024 Goals (unrecognized section and content) Goals may be documented in a n alternate section Scheduled Active and Recently Administ ered Medications (unrecognized section and content) Medication Order// alteplase (CATHFLO ACTIVASE) 2 MG injection (COMPLETED) 2 mg, Flush Catheter, ONCE, 1 dose, On Sun07/13/23 at 0300 * 0311 (Given - Provider: Molly Martinez, ALISTAIR) ceFAZolin (ANCEF) 2,000 mg in dextrose 50 mL ivpb (COMPLETED) 2,000 mg, Intravenous, EVERY 8 HOURS ANTIBIOTIC, 2 doses, First dose on Sun07/11/23 at 0800, Last dose on Sun07/11/23 at 1400 * 0912 (IV New Bag - Provider: Whitney Shah, ALISTAIR) * 1727 (IV New Bag - Provider: Jennifer Dorman RN) hydrophilic wound dressing (TRIAD) external paste Apply externally, 2 TIMES DAILY, First dose (after last modification) on Sun06/29/23 at 2100, UntilDiscontinued * 0925 (Given - Provider: Whitney Shah RN) * 2111 (Given - Provider: Nabil Noguera RN) * 823 (Given - Provider: Jennifer Dorman RN) * 2099 (Given - Provider: Molly Martinez RN) * 0900 (Given - Provider: Estee Sood) * 2100 (Due) insulin glargine (LANTUS SOLOSTAR/BASAGLAR KWIKPEN) 100 UNIT/ML PEN injection (CANCELED) 30 Units, Subcutaneous, EVERY MORNING, First dose (after last modification) on Sun07/11/23 at 0900,Until Discontinued * 09 (Given - Provider: Whitney Shha RN) insulin lispro (HumaLOG) 100 UNIT/ML injection [...] RN) * 1727 (Given - Provider: Jennifer Dorman, ALISTAIR) * 2330 (Given - Provider: Nabil Noguera RN) * 0620 (Given - Provider: Nabil Noguera RN) * 1356 (Given - Provider: Jennifer Dorman RN) * 1530 (Hold/Not Given - Provider: Jennifer Dorman RN - Reason: Previously Administered) * 2330 (Hold/Not Given - Provider: Molly Martinez RN - Reason: Patient sleeping) * 0920 (Given - Provider: Estee Sood) * 1530 (Due) * 2330 (Due) metoprolol (TOPROL-XL) 24 hour tablet 100 mg, Oral, DAILY, First dose (after last modification) on 07/01/23 at 0900, Until Discontinued * 0913 (Given - Provider: Whitney Shah RN) * 0822 (Given - Provider: Jennifer Dorman RN) * 0920 (Given - Provider: Estee Sood) Posaconazole (NOXAFIL) 100 MG tablet [facility] 300 mg, Oral, DAILY, First dose on [...] Provider: Estee Sood) * 2100 (Due) Medication Order07/10//// insulin pump from home Starting on Sun07/12/23 at 0830, Insulin Type (in pump): insulin aspart (NOVOLOG), Patient or responsible caregiver may maintain, in conjection with ordering provider: Yes, Use previous home settings * 0830 (Due) Medication Order07/10//// acetaminophen (TYLENOL) tablet 650 mg, NG Tube, EVERY 6 HOURS PRN, Starting on Sun07/03/23 at 1145, Until Discontinued, Mild Pain (pain score 1,2,3), Moderate Pain (pain score 4,5,6) * 0512 (Given - Provider: Leonor Pineda RN) albuterol (PROVENTIL) (2.5 MG/3ML) 0.083% nebulizer solution [...] (See Alternative - Provider: Jennifer Dorman RN) glucagon (GLUCAGEN) 1 MG injection(Linked Group 1) 1 mg, Subcutaneous, PRN, Starting on Sun06/25/23 at 1721, Until Discontinued, For blood glucose less than 70 mg/dL and with no IV access with loss of consciousness or alert and unable to swallow. * 1545 (See Alternative - Provider: Jennifer Dorman, ALISTAIR) naloxone (NARCAN) 0.4 MG/ML injection 0.4 mg, Intravenous Push, PRN, Starting on Sun07/10/23 at 1201, Until Discontinued, Respiratory Rate Less Than 8 for adults and less than 12 for Peds or for suspected overdose, PACU Now ondansetron (ZOFRAN) 4 MG/2ML injection 4 mg, Intravenous Push, EVERY 6 HOURS PRN, Starting on Sun06/29/23 at 1959, Until Discontinued * 1326 (Given - Provider: Whitney Shah, RN) oxyCODONE immediate release tablet 5 mg, NG Tube, EVERY 6 HOURS PRN, Starting on Sun07/03/23 at 1200, Until Discontinued, Severe Pain (pain score 7,8,9,10) * 0512 (Given - Provider: Leonor Pineda, ALISTAIR) * 1326 (Given - Provider: Whitney Shah, ALISTAIR) * 2041 (Given - Provider: Nabil Noguera [...] BE BASED ON THE PRIMARY CLINICAL RECORDS. [facility] [employer] [facility]. provides no warranty or guarantee of the accuracy or completeness of information in this document.
[2025-03-04 22:15] LABS: INR 1.13; Partial Thromboplastin Time 37.0 sec (22.3-36.2); Prothrombin Time 11.8 sec (9.0-11.6)
[2025-03-04 22:18] LABS: Magnesium 2.3 mg/dL (1.8-2.4)
[2025-03-04 22:22] LABS: Lactate/Lactic Acid 1.3 mmol/L (0.4-2.0)
[2025-03-04 22:28] LABS: Band Neutrophils Absolute 0.5 10^3/uL (0.0-0.3); Basophils Abs Manual 0.00 10^3/uL (0.00-0.10); Basophils Percent Manual 0.0 % (0.2-2.0); Eosinophils Absolute Manual 0.00 10^3/uL (0.00-0.70); Eosinophils Percent Manual 0.0 % (0.9-7.0); Lymphocytes Absolute Manual 1.15 10^3/uL (1.20-3.80); Lymphocytes Percent Manual 5.0 % (20.5-60.0); Monocytes Absolute Manual 1.38 10^3/uL (0.30-0.80); Monocytes Percent Manual 6.0 % (1.7-12.0); Segmented Neut Absolute Manual 20.09 10^3/uL (1.4-6.5); Segmented Neutrophils % Manual 87.0 (43.0-75.0)
[2025-03-04 22:31] LABS: Alanine Aminotransferase 18 U/L (14-59); Albumin Globulin Ratio 0.7; Albumin Level 3.1 g/dL (3.4-5.0); Alkaline Phosphatase 162 U/L (46-116); Anion Gap 21.8; Aspartate Amino Transferase 16 U/L (15-37); Calcium 9.3 mg/dL (8.5-10.1); Carbon Dioxide 15.5 mmol/L (21.0-32.0); Chloride 97 mmol/L (98-107); Estimated GFR (African America 19 (>=60 mL/min/1.73m^2); Estimated GFR (Non-African Ame 15 (>=60 mL/min/1.73m^2); Globulin 4.5 g/dL; Glucose 291 mg/dL (74-106); Potassium 5.3 mmol/L (3.5-5.1); Sodium 129 mmol/L (136-145); Total Protein 7.6 g/dL (6.4-8.2)
[2025-03-04 22:39] LABS: Blood Urea Nitrogen 104.0 mg/dL (7.0-18.0)
[2025-03-04 22:44] LABS: Glucose Urine UA NEGATIVE (NEGATIVE)
[2025-03-04 22:51] LABS: Cast Seen? NONE SEEN #/LPF (NONE SEEN); Crystals Seen? Seen #/HPF (None Seen); Urine Culture Indicated YES-FRMC
--- NOTE | 2025-03-04 23:30 | XR_ITS ---
[facility] [place] [id number] Patient Name: CHIKIS TOBAR MRN: [id number] date: 1965 Sex: F Assigned Patient Location: ER Current Patient Location: ER Accession/Order Number: [id number] Exam Date: 03/04/2025 23:35 Report Date: 03/04/2025 23:40 At the request of: MAURILIO ARIAS MD Procedure: XR chest 1V Plain film chest Single view HISTORY: Fever COMPARISON: 03/05/2024 FINDINGS: SUPPORT DEVICES: None POSTSURGICAL CHANGES: None HEART: Within normal limits PULMONARY ARINA: Within normal limits MEDIASTINUM: Unremarkable LUNGS AND PLEURA: No acute lung process, pleural effusion or pneumothorax identified. BONY STRUCTURES: Intact ADDITIONAL FINDINGS None XR/XR chest 1V IMPRESSION: No acute process. Impression dictated by: Chip Flores M.D. 03/04/2025 11:40 PM Dictation Location: [place] [id number] Electronically authenticated by: [id number] Y Date: 03/04/2025 23:40
--- NOTE | 2025-03-04 23:32 | PC.NURSE ---
this patient has been updated by Dr Huynh possible transfer to [facility]. i also informed this patient once we get a bed at [facility] we will set transportation for you. this patient awake and alert sitting upright on the bed texting on her cell phone this patient voices no concerns, needs and shows no signs of distress
[2025-03-05] VITALS (117 sets, daily range): BP systolic 85–146; BP diastolic 45–98; TEMP 36.6–37.7; O2SAT 68–100
[2025-03-05] MEDS: PIPERACILLIN SODIUM/TAZOBACTAM 3.375 GM in 0.9 % SODIUM CHLORIDE 50 ML IV ×4 (00:13→23:45)
--- NOTE | 2025-03-05 01:03 | PC.NURSE ---
i informed this patient that Dr Huynh is on the phone with [facility] now
[2025-03-05] MEDS: ACETAMINOPHEN 325 MG TABLET 650 MG PO ×2 (02:02→16:52)
[2025-03-05] MEDS: MORPHINE SULFATE 4 MG/ML VIAL IV (02:03)
[2025-03-05 04:20] LABS: Hematocrit 30.2 % (36.0-48.0); Hemoglobin 10.2 g/dL (12.0-16.0); Immature Granulocytes Abs Auto 0.15 10^3/uL (0.00-0.03); Immature Granulocytes Pct Auto 0.9 % (0.0-0.5); Lymphocytes Absolute Auto 0.5 10^3/uL (1.2-3.8); Mean Corpuscular HGB Conc 33.8 g/dL (29.9-35.2); Mean Corpuscular Hemoglobin 29.6 pg (26.7-34.0); Mean Corpuscular Volume 87.5 fL (81.0-99.0); Platelet Count 214 10^3/uL (150-450); Red Blood Count 3.45 10^6/uL (4.20-5.40); White Blood Count 16.3 10^3/uL (4.0-11.0)
--- NOTE | 2025-03-05 04:24 | PC.NURSE ---
this patient awake and alert sitting upright on the bed and talking to Dr Huynh. DR Huynh placed a splint on right arm.
[2025-03-05] MEDS: INSULIN ASPART 300 UNIT/3 ML PEN SUBQ (04:27)
--- NOTE | 2025-03-05 04:32 | PC.NURSE ---
The insulin was drawn up and placed into the cartridge per automobile and property underwriter. Pt is priming the pump. The site for the pump SQ needle insertion is the LUQ.
[2025-03-05 04:35] LABS: Alanine Aminotransferase 18 U/L (14-59); Albumin Globulin Ratio 0.6; Albumin Level 2.5 g/dL (3.4-5.0); Alkaline Phosphatase 137 U/L (46-116); Anion Gap 16.1; Aspartate Amino Transferase 11 U/L (15-37); Calcium 8.7 mg/dL (8.5-10.1); Carbon Dioxide 15.8 mmol/L (21.0-32.0); Chloride 106 mmol/L (98-107); Estimated GFR (African America 28 (>=60 mL/min/1.73m^2); Estimated GFR (Non-African Ame 23 (>=60 mL/min/1.73m^2); Globulin 4.0 g/dL; Glucose 210 mg/dL (74-106); Potassium 4.9 mmol/L (3.5-5.1); Sodium 133 mmol/L (136-145); Total Protein 6.5 g/dL (6.4-8.2)
[2025-03-05 04:36] LABS: Blood Urea Nitrogen 93.0 mg/dL (7.0-18.0)
[2025-03-05 04:40] LABS: Lactate/Lactic Acid 0.8 mmol/L (0.4-2.0)
[2025-03-05] MEDS: 0.9 % SODIUM CHLORIDE 1,000 ML 125 ML IV ×2 (04:52→13:10)
[2025-03-05 10:57] LABS: A. calcoaceticus-baumannii Cpx NOT DETECTED (NOT DETECTE); Bacteroides fragilis NOT DETECTED (NOT DETECTE); Candida auris NOT DETECTED (NOT DETECTE); Candida glabrata NOT DETECTED (NOT DETECTE); Enterococcus faecalis NOT DETECTED (NOT DETECTE); Enterococcus faecium NOT DETECTED (NOT DETECTE); Klebsiella aerogenes NOT DETECTED (NOT DETECTE); Proteus spp. NOT DETECTED (NOT DETECTE); Salmonella spp. NOT DETECTED (NOT DETECTE); Serratia marcescens NOT DETECTED (NOT DETECTE); Source BLOOD; Staphylococcus epidermidis NOT DETECTED (NOT DETECTE); Staphylococcus lugdunensis NOT DETECTED (NOT DETECTE); Staphylococcus spp. NOT DETECTED (NOT DETECTE); Stenotrophomonas maltophilia NOT DETECTED (NOT DETECTE); Streptococcus pyogenes NOT DETECTED (NOT DETECTE); Streptococcus spp. NOT DETECTED (NOT DETECTE)
[2025-03-05 12:07] LABS: CTX-M NOT DETECTED (NOT DETECTE); IMP NOT DETECTED (NOT DETECTE); KPC NOT DETECTED (NOT DETECTE); NDM NOT DETECTED (NOT DETECTE); OXA-48-like NOT DETECTED (NOT DETECTE); VIM NOT DETECTED (NOT DETECTE); mcr-1 NOT DETECTED (NOT DETECTE)
[2025-03-05 12:09] LABS: Enterobacterales DETECTED (NOT DETECTE); Klebsiella pneumoniae group DETECTED (NOT DETECTE)
--- NOTE | 2025-03-05 19:13 | PC.NURSE ---
this patient awake and alert sitting upright on the bed, talking to the household appliance repairer. i informed this patient [facility] has no bed, so most likely will be here the night again.
[2025-03-05 20:48] LABS: Hematocrit 29.4 % (36.0-48.0); Hemoglobin 9.9 g/dL (12.0-16.0); Immature Granulocytes Abs Auto 0.17 10^3/uL (0.00-0.03); Immature Granulocytes Pct Auto 1.4 % (0.0-0.5); Lymphocytes Absolute Auto 0.5 10^3/uL (1.2-3.8); Mean Corpuscular HGB Conc 33.7 g/dL (29.9-35.2); Mean Corpuscular Hemoglobin 29.6 pg (26.7-34.0); Mean Corpuscular Volume 88.0 fL (81.0-99.0); Platelet Count 209 10^3/uL (150-450); Red Blood Count 3.34 10^6/uL (4.20-5.40); White Blood Count 12.0 10^3/uL (4.0-11.0)
[2025-03-05 21:10] LABS: Lactate/Lactic Acid 1.9 mmol/L (0.4-2.0)
[2025-03-05 21:16] LABS: Alanine Aminotransferase 22 U/L (14-59); Albumin Globulin Ratio 0.5; Albumin Level 2.2 g/dL (3.4-5.0); Alkaline Phosphatase 141 U/L (46-116); Anion Gap 15.4; Aspartate Amino Transferase 21 U/L (15-37); Blood Urea Nitrogen 57.0 mg/dL (7.0-18.0); Calcium 8.8 mg/dL (8.5-10.1); Carbon Dioxide 16.6 mmol/L (21.0-32.0); Chloride 110 mmol/L (98-107); Estimated GFR (African America 46 (>=60 mL/min/1.73m^2); Estimated GFR (Non-African Ame 38 (>=60 mL/min/1.73m^2); Globulin 4.1 g/dL; Glucose 150 mg/dL (74-106); Potassium 4.0 mmol/L (3.5-5.1); Sodium 138 mmol/L (136-145); Total Protein 6.3 g/dL (6.4-8.2)
[2025-03-05] MEDS: ACETAMINOPHEN 325 MG TABLET PO (23:45)
[2025-03-05] MEDS: OXYCODONE HCL/ACETAMINOPHEN 5MG/325MG 1 TAB PO (23:47)
[2025-03-05] MEDS: 0.9 % SODIUM CHLORIDE 1,000 ML 100 ML IV (23:47)
[2025-03-06] VITALS (44 sets, daily range): BP systolic 106–147; BP diastolic 47–97; PULSE 70–88; TEMP 36.9; O2SAT 82–100
[2025-03-06 06:46] LABS: Hematocrit 27.7 % (36.0-48.0); Hemoglobin 9.2 g/dL (12.0-16.0); Mean Corpuscular HGB Conc 33.2 g/dL (29.9-35.2); Mean Corpuscular Hemoglobin 29.5 pg (26.7-34.0); Mean Corpuscular Volume 88.8 fL (81.0-99.0); Platelet Count 201 10^3/uL (150-450); Red Blood Count 3.12 10^6/uL (4.20-5.40); White Blood Count 9.2 10^3/uL (4.0-11.0)
[2025-03-06 07:09] LABS: Alanine Aminotransferase 25 U/L (14-59); Albumin Globulin Ratio 0.5; Albumin Level 2.1 g/dL (3.4-5.0); Alkaline Phosphatase 132 U/L (46-116); Anion Gap 13.8; Aspartate Amino Transferase 25 U/L (15-37); Blood Urea Nitrogen 46.0 mg/dL (7.0-18.0); Calcium 8.7 mg/dL (8.5-10.1); Carbon Dioxide 17.1 mmol/L (21.0-32.0); Chloride 111 mmol/L (98-107); Estimated GFR (African America >60 (>=60 mL/min/1.73m^2); Estimated GFR (Non-African Ame 51 (>=60 mL/min/1.73m^2); Globulin 3.9 g/dL; Glucose 125 mg/dL (74-106); Potassium 3.9 mmol/L (3.5-5.1); Sodium 138 mmol/L (136-145); Total Protein 6.0 g/dL (6.4-8.2)
[2025-03-06 07:19] LABS: Band Neutrophils Absolute 0.3 10^3/uL (0.0-0.3); Basophils Abs Manual 0.00 10^3/uL (0.00-0.10); Basophils Percent Manual 0.0 % (0.2-2.0); Eosinophils Absolute Manual 0.09 10^3/uL (0.00-0.70); Eosinophils Percent Manual 1.0 % (0.9-7.0); Lymphocytes Absolute Manual 0.64 10^3/uL (1.20-3.80); Lymphocytes Percent Manual 7.0 % (20.5-60.0); Monocytes Absolute Manual 0.36 10^3/uL (0.30-0.80); Monocytes Percent Manual 4.0 % (1.7-12.0); Segmented Neut Absolute Manual 7.82 10^3/uL (1.4-6.5); Segmented Neutrophils % Manual 85.0 (43.0-75.0)
[2025-03-06] MEDS: PIPERACILLIN SODIUM/TAZOBACTAM 3.375 GM in 0.9 % SODIUM CHLORIDE 50 ML IV ×3 (08:05→22:43)
[2025-03-06] MEDS: BACLOFEN 10 MG TABLET PO (08:54)
[2025-03-06] MEDS: 0.9 % SODIUM CHLORIDE 1,000 ML 100 ML IV ×2 (11:21→21:47)
[2025-03-07] VITALS (20 sets, daily range): BP systolic 122–183; BP diastolic 54–115; PULSE 70–87; TEMP 36.9; O2SAT 95–99
[2025-03-07] MEDS: OXYCODONE HCL/ACETAMINOPHEN 5MG/325MG 1 TAB PO (01:23)
[2025-03-07] MEDS: 0.9 % SODIUM CHLORIDE 1,000 ML 100 ML IV (08:08)
[2025-03-07] MEDS: PIPERACILLIN SODIUM/TAZOBACTAM 3.375 GM in 0.9 % SODIUM CHLORIDE 50 ML IV ×3 (08:09→23:03)
[2025-03-07 08:28] LABS: Hematocrit 29.1 % (36.0-48.0); Hemoglobin 9.6 g/dL (12.0-16.0); Immature Granulocytes Abs Auto 0.14 10^3/uL (0.00-0.03); Immature Granulocytes Pct Auto 1.7 % (0.0-0.5); Lymphocytes Absolute Auto 0.6 10^3/uL (1.2-3.8); Mean Corpuscular HGB Conc 33.0 g/dL (29.9-35.2); Mean Corpuscular Hemoglobin 29.0 pg (26.7-34.0); Mean Corpuscular Volume 87.9 fL (81.0-99.0); Platelet Count 220 10^3/uL (150-450); Red Blood Count 3.31 10^6/uL (4.20-5.40); White Blood Count 8.4 10^3/uL (4.0-11.0)
[2025-03-07 09:03] LABS: Alanine Aminotransferase 37 U/L (14-59); Albumin Globulin Ratio 0.5; Albumin Level 1.9 g/dL (3.4-5.0); Alkaline Phosphatase 151 U/L (46-116); Anion Gap 13.5; Aspartate Amino Transferase 30 U/L (15-37); Blood Urea Nitrogen 24.0 mg/dL (7.0-18.0); Calcium 8.1 mg/dL (8.5-10.1); Carbon Dioxide 15.9 mmol/L (21.0-32.0); Chloride 113 mmol/L (98-107); Estimated GFR (African America >60 (>=60 mL/min/1.73m^2); Estimated GFR (Non-African Ame >60 (>=60 mL/min/1.73m^2); Globulin 4.1 g/dL; Glucose 125 mg/dL (74-106); Potassium 3.4 mmol/L (3.5-5.1); Sodium 139 mmol/L (136-145); Total Protein 6.0 g/dL (6.4-8.2)
[2025-03-07 09:11] LABS: Lactate/Lactic Acid <0.3 mmol/L (0.4-2.0)
[2025-03-08] VITALS (8 sets, daily range): BP systolic 132–150; BP diastolic 56–72; PULSE 87; TEMP 37.1–37.3; O2SAT 96–99
--- NOTE | 2025-03-08 00:20 | PC.NURSE ---
pt's original complaint upon arrival was vomiting for 3 days, no report of vomiting while pt in ER and no vomiting in Erwhile this nurse caring for pt. pt eating meals and drinking throughout each day. with no complaints of nausea.
[2025-03-08] MEDS: PIPERACILLIN SODIUM/TAZOBACTAM 3.375 GM in 0.9 % SODIUM CHLORIDE 50 ML IV (08:45)
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
== END 2025-03-08 14:45 | disposition short-term general hospital (02) ==
PROVIDERS: Emergency Medicine; Emergency Provider Internal Medicine; PCP Internal Medicine
DX: N17.9 Acute kidney failure, unspecified (principal); R50.9 Fever, unspecified; R11.2 Nausea with vomiting, unspecified; C67.9 Malignant neoplasm of bladder, unspecified; Z93.6 Other artificial openings of urinary tract status; Z91.81 History of falling; Z99.3 Dependence on wheelchair; S52.601A Unspecified fracture of lower end of right ulna, initial encounter for closed fracture; W19.XXXA Unspecified fall, initial encounter
CPT/HCPCS: 29125; 36415; 71045; 74177; 80053; 81001; 83605; 83735; 84100; 84484; 85007; 85025; 85027; 85610; 85730; 87040; 87086; 87088; 87150; 87186; 96361; 96365; 96366; 96375; 96376; 99285; J2270; J2405; J2543; Q9967